=== PATIENT | female | born 1965 | race Caucasian/White ===

== ENCOUNTER 2016-09-28 05:32 | Outpatient (CLI) | payer BC ==
[~2016-09-28] VITALS: Ht 162.6 cm; Wt 96.2 kg
[~2016-09-28 05:32] MED LIST: ACYC800T PO; ALBU8.5H4 IH; ALLO100T PO; ALLP300T PO; ALPR0.5T72 PO; ALPR1TAB7 PO; AMLO10TA82 PO; ANGELIQ; AZIT-21 PO; AZTH250C PO; BACL10TA PO; BENZ100C18 PO; CA C1TAB26 PO; CALC-250 PO; CEFA500T PO; CEFD300C3 PO; CEFP500T4 PO; CLCX200C PO; CLON-378 PO; CYAN100071 PO; CYCL10TA9 PO; DEXA4TAB PO; DEXT1TAB3 PO; DIPH50CA33 PO; DOXY100C2 PO; E400C PO; EST1.25T PO; FAMO-119 PO; FAMO20TA5 PO; FEXO180T PO; FLT05NA16 NSEACH; FURO40TA4 PO; GBPN300C PO; GUAI120L29 PO; HYDR-3720; HYDR-3720 PO; HYDR-3812 PO; HYDR118S10 PO; HYDR1TAB PO; HYDR1TAB75 PO; HYDR473S17 PO; HYOS0.1283 SL; IBP800T PO; KETO-22 PO; MELA1TAB11 PO; METH4TAB PO; METH750T3; MNTL10T PO; NAPR-243 PO; NFNEB10T PO; NITR-65 PO; ONDA4TAB11 PO; ONDA8TAB13 PO; ONDAN4ODT PO; ONDN4T PO; OXYC-12 PO; OXYC-272 PO; OXYC1CAP3 PO; PANT40TA2 PO; POTA8TAB PO; PRD50T PO; PROM25SU43 RC; TBR.3OP51 OP; TERB250T10 PO; TRIA1TAB3; TRIA1TAB5 PO; UBID400C6 PO; VITA1CAP59 PO; ZOLP10TA5 PO
--- OUTSIDE RECORDS SUMMARY | 2016-09-28 05:35 | XMS REPORT | Continuity of Care Document ---
Author Author [facility] Organization [facility] Address Unknown Phone Unavailable Care Team Providers Care Hedis Analyst Name Role Phone MOR PIERRE DO PCP Insurance Providers Payer Name Policy Number Subscriber Name Relationship [facility] [id number] Davy Edmond G8 Fiance Advance Directives Directive Response Recorded Date/Time Advance Directives No 08/25/16 8:20am Health Care Power of Dental Professional No 08/25/16 8:20am Organ Donor Yes 08/25/16 8:20am Resuscitation Status Full Code 08/25/16 8:20am Problems Active Problems Medical Problem Onset Date Status Acute bronchitis Unknown Acute Acute exacerbation of chronic low back pain Unknown Acute Allergic contact dermatitis Unknown Acute Gastroenteritis Unknown Acute Migraine headache Unknown Acute Sinusitis, acute Unknown Acute Upper respiratory infection Unknown Acute Urinary tract infection Unknown Acute Medications Current Home Medications Medication Dose Units Route Directions Days/Qty Instructions Start Date Clonidine Hcl 0.2 Mg 0.1 Mg Oral Four Times Daily 03/08/09 Potassium Chloride 8 Meq 8 Meq Oral Twice A Day 02/16/10 Triamterene/Hydrochlorothiazid 1 Each 1 Each Oral Daily 11/18/10 Estrogens Conjugated 1.25 Mg 2.5 Mg Oral Daily 11/18/10 Nebivolol Hcl 10 Mg 10 Mg Oral Daily 11/16/12 Cyanocobalamin (Vitamin B-12) 1,000 Mcg 2,000 Mcg Oral Daily Vitamin E 400 Unit 400 Unit Oral Daily 03/09/13 Alprazolam 1 Mg 1.5 Mg Oral Bedtime as needed for Sleep 08/23/16 Ubidecarenone 400 Mg 400 Mg Oral Daily 08/23/16 Allopurinol 100 Mg 100 Mg Oral Daily 08/23/16 Hydrocodone/Acetaminophen 1 Each 1-2 Tab Oral 4-6HR as needed for Pain 20 08/25/16 Past Home Medications Medication Directions Ordered Status Triamterene/Hydrochlorothiazid 1 Each Tablet, 03/08/09 Discontinued Alprazolam 0.5 Mg Tab.rapdis, 1 Each Oral Twice Daily And Prn 03/08/09 Discontinued Acetaminophen/Hydrocodone Bitart (Lorcet Plus) 1 Each Tablet, 1 Each Oral Q 4 - 6 Hrs Prn 03/08/09 Discontinued [Angeliq] , 03/08/09 Discontinued Tobramycin Sulfate 5 Ml Soln, 0 Ophthalmic Give Every 4 Hrs On Schedule 08/06 Discontinued Oxycodone Hcl/Acetaminophen 1 Tab Tablet, 1 Tab Oral Q4hprn Pain 03/08/09 Discontinued Azithromycin 250 Mg Tablet, 2 Tab Oral Daily 06/06/09 Discontinued Fluticasone Propionate 16 Gm [place], 2 Sprays Each Nostril Daily 06/06/09 Discontinued Azithromycin (Zpak) 250 Mg Tab, 0 Oral Z-Dustin 08/29/09 Discontinued Cefaclor 500 Mg Tab.sr.12h, 1 Each Oral Twice A Day 10/16/09 Discontinued Methylprednisolone 4 Mg/Dose-Pack Tab.ds.pk, 0 Oral As Directed 10/16/09 Discontinued Furosemide (Lasix) 40 Mg Tablet, 1 Each Oral As Needed 02/16/10 Discontinued Terbinafine Hcl 250 Mg Tablet, 250 Mg Oral Daily 02/16/10 Discontinued Zolpidem Tartrate 10 Mg Tablet, 10 Mg Oral As Needed 02/16/10 Discontinued Pyridoxine/Melatonin 1 Tab Tablet, 2 - 3 Tab Oral Bedtime 02/16/10 Discontinued Vitamin B Complex 1 Cap Capsule, 1 Cap Oral Daily 02/16/10 Discontinued Calcium Carbonate/Vitamin D3 1 Each Tablet, 1 Each Oral Daily 02/16/10 Discontinued Dextromethorphan Hbr/Chlor-Mal 1 Each Tablet, 1 Each Oral As Needed 02/16/10 Discontinued Diphenhydramine Hcl 50 Mg Tablet, 1 Each Oral As Needed 02/16/10 Discontinued Cyclobenzaprine Hcl (Flexeril) 10 Mg Tablet, 1 Each Oral Three Times A Day Discontinued Montelukast Sodium 10 Mg Tab, 10 Mg Oral Bedtime 11/18/10 Discontinued Fexofenadine Hcl 180 Mg Tablet, 1 Tab Oral Daily 11/18/10 Discontinued Methylprednisolone 4 Mg/Dose-Pack Tab.ds.pk, 0 Oral As Directed 11/18/10 Discontinued Oxycodone Hcl/Acetaminophen 1 Each Tablet, 1 - 2 Each Oral Every 6 Hours as needed 11/18/10 Discontinued Methocarbamol (Robaxin) 750 Mg Tablet, 02/02/11 Discontinued Acetaminophen/Hydrocodone Bitart 1 Ea Tab, 02/02/11 Discontinued Oxycodone Hcl/Acetaminophen 1 Each Capsule, 1 Each Oral Q 4 H 02/02/11 Discontinued Baclofen (Lioresal) 10 Mg Tablet, 1 Each Oral Three Times A Day 02/07/11 Discontinued Ketorolac Tromethamine 10 Mg Tablet, 10 Mg Oral Every 8HRS as needed Discontinued Acetaminophen/Hydrocodone Bitart 1 Each Tablet, 1 Each Oral Every 6 Hours as needed 02/13/11 Discontinued Ondansetron 4 Mg Tab.rapdis, 4 Mg Oral Every 6 Hours as needed 03/07/11 Discontinued Acetaminophen/Hydrocodone Bitart 1 Ea Tab, 1-2 Ea Oral Q 4 - 6 Hrs Prn Discontinued Doxycycline Hyclate (Vibramycin) 100 Mg Capsule, 0 Oral Daily 05/06/11 Discontinued Acetaminophen/Hydrocodone Bitart 1 Each Tablet, 1 Each Oral Q4hr Prn Discontinued Acyclovir 800 Mg Tablet, 800 Mg Oral Every 12 Hours 05/06/11 Discontinued Ondansetron Hcl 4 Mg Tab, 4 Mg Oral Every 4HRS 05/06/11 Discontinued Ketorolac Tromethamine 10 Mg Tablet, 10 Mg Oral Every 8HRS as needed Discontinued Naproxen 500 Mg Tablet, 1 Each Oral Three Times A Day And Prn 02/08/12 Discontinued Ca Cmb No.1/Vit D3/B-6/Fa/B12 1 Each Tablet, 3000 Mg Oral Daily 11/16/12 Discontinued Allopurinol 300 Mg Tablet, 1 Tab Oral Daily 11/16/12 Discontinued Amlodipine Besylate (Norvasc 10 Mg) 10 Mg Tablet, 1 Each Oral Daily 11/16/12 Discontinued Celecoxib 200 Mg Capsule, 1 Each Oral Daily 11/16/12 Discontinued Cefprozil 500 Mg Tablet, 1 Each Oral Twice A Day 11/16/12 Discontinued Benzonatate 100 Mg Capsule, 1 - 2 Each Oral Q 4 - 6 Hr Prn 11/16/12 Discontinued Gabapentin 300 Mg Cap, 300 Mg Oral Daily 12/05/12 Discontinued Guaifenesin/Codeine Phos 120 Ml Liquid, 5-10 Ml Oral Every 8HRS as needed for Cough 12/01/13 Discontinued Hydrocodone/Chlorphen Polis 5 Ml Susp, 5 Ml Oral Every 4HRS as needed for Cough 12/01/13 Discontinued Cefdinir (Omnicef) 300 Mg Capsule, 1 Each Oral Twice A Day 04/17/14 Discontinued Hydrocodone/Chlorphen Polis 5 Ml Susp, 5 Ml Oral Every 6 Hours as needed for Cough 04/17/14 Discontinued Famotidine (Pepcid) 20 Mg Tablet, 1 Each Oral Twice A Day 02/28/15 Discontinued Dexamethasone 4 Mg Tablet, 4 Mg Oral Twice A Day 02/28/15 Discontinued Cefdinir (Omnicef) 300 Mg Capsule, 300 Mg Oral Twice A Day 06/05/15 Discontinued Albuterol Sulfate 8.5 Gm Hfa.aer.ad, 2 Puff Inhalation Every 4HRS as needed for Shortness Of Breath 06/05/15 Discontinued Ondansetron 8 Mg Tab.rapdis, 8 Mg Oral Every 6 Hours as needed for Nausea/ Vomiting 12/12/15 Discontinued Famotidine 20 Mg Tablet, 20 Mg Oral Every 12 Hours 03/23/16 Discontinued Ondansetron Hcl 4 Mg Tab, 4-8 Mg Oral Every 6 Hours as needed for Nausea/ Vomiting 03/23/16 Discontinued Pantoprazole Sodium 40 Mg Tablet.dr, 40 Mg Oral Daily 03/24/16 Discontinued Promethazine Hcl 25 Mg Supp.rect, 25 Mg Rectal Every 4HRS for Nausea/Vomiting 03/24/16 Discontinued Hyoscyamine Sulfate 0.125 Mg Tab.subl, 1-2 Tab Sublingual Every 4HRS for Abdominal Pain 03/24/16 Discontinued Nitrofurantoin Monohyd/M-Cryst 100 Mg Capsule, 100 Mg Oral Twice A Day Discontinued Social History Social History Problem Response Recorded Date/Time Alcohol Use Denies Use 03/24/2016 6:43pm Recreational Drug Use No 03/24/2016 6:43pm Recent Foreign Travel No 08/25/2016 8:20am Recent Infectious Disease Exposure No 08/25/2016 8:20am Sexually Transmitted Disease No 08/25/2016 8:20am HIV/AIDS No 08/25/2016 8:20am Smoking Status Never a Smoker 08/25/2016 8:20am Recent Hopitalizations No 08/25/2016 8:20am Sexually Transmitted Disease No 08/25/2016 8:20am Hx Sexually Transmitted Disorders No 02/22/2010 2:11pm Query Response Start Date Stop Date Smoking Status Never a Smoker Hospital Discharge Instructions Patient Instructions Physician Instructions New, Converted or Re-Newed RX: RX on Chart Plan of Care/Instructions/FU: Dressing may be replaced with a band aid in 48 hours. F/U with my nurse in 2 weeks for suture removal Activity as Tolerated: Yes Discharge Diet: No Restrictions Care Plan Patient Instructions:: Dressing may be replaced with a band aid in 48 hours. F/U with my nurse in2 weeks for suture removal Plan of Care Discharge Date 08/25/16 12:20pm Instructions/Education Provided ANESTHESIA INSTRUCTIONS POSTOP Squamous Cell Carcinoma (DC) Prescriptions See Medication Section Functional Status No functional status results. Allergies, Adverse Reactions, Alerts Allergen Type Severity Reaction Status Last Updated Penicillins ([id number]) Allergy Mild Active 06/05/15 Sulfa (Sulfonamide Antibiotics) ([id number]) Allergy Mild Active Clindamycin Allergy Intermediate POLYSYSTEMIC ARTHRITIS Active 08/23/16 Succinylcholine Allergy Unknown Active 06/05/15 PSEUDOCHOLINESTERASE Allergy Unknown Active 06/05/15 serum dex deficiency Allergy Mild Active 03/08/09 Immunizations No immunization records. Vital Signs Acute Vital Signs Vital Response Date/Time Temperature (Fahrenheit) 97.2 degrees F (97.6 - 99.5) 08/25/2016 12:20pm Temperature (Calculated Celsius) 36.94483 degrees C (36.4 - 37.5) 08/25/2016 12:10pm Temperature Source Temporal 08/25/2016 12:20pm Pulse Rate (adult) 82 bpm (60 - 90) 08/25/2016 12:20pm Respiratory Rate 18 bpm (12 - 24) 08/25/2016 12:20pm O2 Sat by Pulse Oximetry 98 % (88 - 100) 08/25/2016 12:20pm Blood Pressure 118/75 mm Hg 08/25/2016 12:20pm Blood Pressure Mean 85 mm Hg 08/25/2016 8:20am Pain Numeric Pain Scale 0-No Pain 08/25/2016 12:20pm Pain Intensity 0 08/25/2016 12:10pm Height (Feet) 5 feet 08/25/2016 8:20am Height (Inches) 4.00 inches 08/25/2016 8:20am Height (Calculated Centimeters) 162.657695 cm 08/25/2016 8:20am Weight (Pounds) 212 pounds 08/25/2016 8:20am Weight (Ounces) 3.0 oz 08/25/2016 8:20am Weight (Calculated Grams) 84773.63 gm 08/25/2016 8:20am Weight (Calculated Kilograms) 96.062117 kilograms 08/25/2016 8:20am Calculated BMI 36.4 08/25/2016 8:20am Results Pending Microbiology Results Procedure Source Collection Date/Time Procedures Procedure Status Date Provider(s) Excision of lesion Completed 08/25/16 BEKAH RUTH MD Encounters Encounter Location Arrival/Admit Date Discharge/Depart Date Attending Provider Departed [facility] 08/25/16 7:30am 12:20pm BEAKH RUTH MD Departed Clinic [facility] 08/23/16 10:35am 08/23/16 12: 27pm BEKAH RUTH MD
[2016-10-04] MEDS ORDERED: HYDR-3812 PO (10:24)
== END 2016-09-28 11:10 ==
LOC: PREOP 05:32
PROVIDERS: ATTEND Surgery
DX: Z01.818 Encounter for other preprocedural examination (principal); L98.9 Disorder of the skin and subcutaneous tissue, unspecified

== ENCOUNTER 2016-10-04 08:17 | Day surgery (SDC) | payer BC ==
[~2016-10-04] VITALS: Ht 162.6 cm; Wt 96.2 kg
--- OUTSIDE RECORDS SUMMARY | 2016-10-04 08:22 | XMS REPORT | Continuity of Care Document ---
Author Author [facility] Organization [facility] Address Unknown Phone Unavailable Care Team Providers Care Personal Care Home Administrator Name Role Phone MOR PIERRE DO PCP Insurance Providers Payer Name Policy Number Subscriber Name Relationship [facility] [id number] Davy Edmond G8 Fiance Advance Directives Directive Response Recorded Date/Time Advance Directives No 08/25/16 8:20am Health Care Power of Automated Process Operator No 08/25/16 8:20am Organ Donor Yes 08/25/16 [...] Daily 06/06/09 Discontinued Fluticasone Propionate 16 Gm [place], 2 Sprays Each Nostril Daily 06/06/09 Discontinued [...] Type Severity Reaction Status Last Updated Penicillins ([id number]) Allergy Mild Active 06/05/15 Sulfa (Sulfonamide Antibiotics) ([id number]) Allergy Mild Active Clindamycin Allergy Intermediate POLYSYSTEMIC ARTHRITIS Active 08/23/16 Succinylcholine Allergy Unknown Active 06/05/15 PSEUDOCHOLINESTERASE Allergy Unknown Active 06/05/15 serum dex deficiency Allergy Mild Active 03/08/09 Immunizations No immunization records. Vital Signs Acute Vital Signs Vital Response Date/Time Temperature (Fahrenheit) 97.2 degrees F (97.6 - 99.5) 08/25/2016 12:20pm Temperature (Calculated Celsius) 36.49666 degrees C (36.4 - 37.5) 08/25/2016 12:10pm [...] 4.00 inches 08/25/2016 8:20am Height (Calculated Centimeters) 162.331598 cm 08/25/2016 8:20am Weight (Pounds) 212 pounds 08/25/2016 8:20am Weight (Ounces) 3.0 oz 08/25/2016 8:20am Weight (Calculated Grams) 02817.63 gm 08/25/2016 8:20am Weight (Calculated Kilograms) 96.980072 kilograms 08/25/2016 8:20am Calculated BMI 36.4 08/25/2016 8:20am Results Pending Microbiology Results Procedure Source Collection Date/Time Procedures Procedure Status Date Provider(s) Excision of lesion Completed 08/25/16 BEKAH RUTH MD Encounters Encounter Location Arrival/Admit Date Discharge/Depart Date Attending Provider Departed [facility] 08/25/16 7:30am 12:20pm BEKAH RUTH MD Departed Clinic [facility] 08/23/16 10:35am 08/23/16 12: 27pm BEKAH RUTH MD
--- OUTSIDE RECORDS SUMMARY | 2016-10-04 08:22 | XMS REPORT | Continuity of Care Document ---
Author Author [facility] Organization [facility] Address Unknown Phone Unavailable Care Team Providers Care Shop Cooper Name Role Phone MOR PIERRE DO PCP Insurance Providers Payer Name Policy Number Subscriber Name Relationship [facility] [id number] Davy Edmond G8 Fiance Advance Directives Directive Response Recorded Date/Time Advance Directives No 08/25/16 8:20am Health Care Power of Writer Producer No 08/25/16 8:20am Organ Donor Yes 08/25/16 [...] Daily 06/06/09 Discontinued Fluticasone Propionate 16 Gm [place], 2 Sprays Each Nostril Daily 06/06/09 Discontinued [...] Type Severity Reaction Status Last Updated Penicillins ([id number]) Allergy Mild Active 06/05/15 Sulfa (Sulfonamide Antibiotics) ([id number]) Allergy Mild Active Clindamycin Allergy Intermediate POLYSYSTEMIC ARTHRITIS Active 08/23/16 Succinylcholine Allergy Unknown Active 06/05/15 PSEUDOCHOLINESTERASE Allergy Unknown Active 06/05/15 serum dex deficiency Allergy Mild Active 03/08/09 Immunizations No immunization records. Vital Signs Acute Vital Signs Vital Response Date/Time Temperature (Fahrenheit) 97.2 degrees F (97.6 - 99.5) 08/25/2016 12:20pm Temperature (Calculated Celsius) 36.31648 degrees C (36.4 - 37.5) 08/25/2016 12:10pm [...] 4.00 inches 08/25/2016 8:20am Height (Calculated Centimeters) 162.920970 cm 08/25/2016 8:20am Weight (Pounds) 212 pounds 08/25/2016 8:20am Weight (Ounces) 3.0 oz 08/25/2016 8:20am Weight (Calculated Grams) 10720.63 gm 08/25/2016 8:20am Weight (Calculated Kilograms) 96.571481 kilograms 08/25/2016 8:20am Calculated BMI 36.4 08/25/2016 8:20am Results Pending Microbiology Results Procedure Source Collection Date/Time Procedures Procedure Status Date Provider(s) Excision of lesion Completed 08/25/16 BEKAH RUTH MD Encounters Encounter Location Arrival/Admit Date Discharge/Depart Date Attending Provider Departed [facility] 08/25/16 7:30am 12:20pm BEKAH RUTH MD Departed Clinic [facility] 08/23/16 10:35am 08/23/16 12: 27pm BEKAH RUTH MD
[2016-10-04] MEDS ORDERED: SODIUM CHLORIDE (ADD-VANTAGE) 250 ML ONE (08:43)
[2016-10-04] MEDS ORDERED: VANCOMYCIN 1 GM ADD-VANTAGE VIAL IV ONE (08:43)
[2016-10-04] MEDS ORDERED: LACTATED RINGERS 1,000 ML IV PRN (09:00)
[2016-10-04] MEDS ORDERED: MIDAZOLAM 2 MG/2 ML (VERSED) VIAL IV ONE (09:00)
[2016-10-04] MEDS ORDERED: FAMOTIDINE 20MG/2ML IV (PEPCID) IV ONE (09:00)
[2016-10-04] MEDS ORDERED: SCOPOLAMINE 1.5 MG (TRANSDERM-SCOP) PATCH TOP ONE (09:00)
[2016-10-04] MEDS ORDERED: VANCOMYCIN 1 GM/NS 250 ML IVPB IV ONE ×2 (09:00)
[2016-10-04] MEDS ORDERED: ONDANSETRON 4 MG/2 ML (SDV) Z0FRAN IV ONE (09:00)
[2016-10-04 09:04] VITALS: BP 118/82
--- NOTE | 2016-10-04 09:17 | Progress Note-Pre Operative ---
Pre-Operative Progress Note H&P Reviewed The H&P was reviewed, patient examined and no changes noted. Date H&P Reviewed: Oct 04, 2016 Time H&P Reviewed: 09:17 Pre-Operative Diagnosis: skin lesion BEKAH RUTH MD Oct 04, 2016 9:17 am
[2016-10-04] MEDS ORDERED: BUP/EPI 0.25% 1:200,000 (MARCAINE) 30 ML VIAL ONE ×2 (09:20→09:34)
[2016-10-04] MEDS ORDERED: MIDAZOLAM 2 MG/2 ML (VERSED) VIAL ONE (09:29)
[2016-10-04] MEDS ORDERED: LACTATED RINGERS 1,000 ML IV ONE (09:29)
[2016-10-04] MEDS ORDERED: ONDANSETRON 4 MG/2 ML (SDV) Z0FRAN ONE (09:29)
[2016-10-04] MEDS ORDERED: proPOfol 200 MG/20 ML (DIPRIVAN) VIAL IV ONE (09:29)
[2016-10-04] MEDS ORDERED: fentaNYL INJECTION 100 MCG/2 ML AMP ONE (09:29)
[2016-10-04] MEDS ORDERED: LIDOCAINE PF 2% 10 ML (XYLOCAINE) AMP ONE (09:29)
[2016-10-04] MEDS ORDERED: DEXAMETHASONE PF 10 MG/ML (DECADRON) VIAL ONE (09:36)
--- NOTE | 2016-10-04 10:23 | Progress Note-Post Operative ---
Post-Operative Progess Note Pre-Operative Diagnosis skin lesions Post-Operative Diagnosis same Post-Op Procedure Note Date of Procedure: Oct 04, 2016 Name of Procedure: excision Times 2 Anesthesia Type Gen. Estimated blood loss (mL): minimal Specimen(s) collected skin lesions BEKAH RUTH MD Oct 04, 2016 10:23 am
[2016-10-04] MEDS ORDERED: HYDR-3812 PO (10:24)
--- NOTE | 2016-10-04 10:24 | Discharge Inst-Simple/Standard ---
Discharge Inst-Standard Discharge Medications New, Converted or Re-Newed RX: RX on Chart Patient Instructions/Follow Up Plan of Care/Instructions/FU: dressings off in 48 hours. Follow-up with my nurse in 10 days for suture removal Activity as Tolerated: Yes Discharge Diet: No Restrictions BEKAH RUTH MD Oct 04, 2016 10:24 am
[2016-10-04] MEDS ORDERED: SEVOFLURANE (ULTANE) 15 ML INHAL SOLN ONE (10:29)
[2016-10-04] MEDS ORDERED: morphine INJ 10 MG/ML 1ML (SYR OR VIAL) IVP PRN (10:45)
[2016-10-04] MEDS ORDERED: ONDANSETRON 4 MG/2 ML (SDV) Z0FRAN IVP PRN (10:45)
[2016-10-04 11:45] VITALS: BP 115/78
[2016-10-04 12:15] VITALS: BP 113/79
[2016-10-04 12:45] VITALS: BP 114/80
[2016-10-04 13:45] VITALS: BP 114/82
--- NOTE | 2016-10-04 14:46 | OPERATIVE REPORT ---
PROCEDURE PHYSICIAN: BEKAH RUTH DATE OF PROCEDURE: 10/04/2016 PREOPERATIVE DIAGNOSIS: 1. 1 cm skin lesion dorsum of right foot. 2. 2 cm skin lesion left forearm. POSTOPERATIVE DIAGNOSIS: 1. 1 cm skin lesion dorsum of right foot. 2. 2 cm skin lesion left forearm. OPERATION: Excision of both. SURGEON: Tian. ANESTHESIA: General anesthesia. BLOOD LOSS: Minimal. FLUIDS: 300 mL crystalloids. TYPE OF WOUND: Type I (clean wound). INDICATION FOR THE PROCEDURE: This lady presented with a skin lesion over the proximal right foot and a raised lesion over the left forearm, requiring histologic confirmation. Therefore simple excision was felt to be reasonable. Informed consent was obtained after reviewing the procedures in detail. DESCRIPTION OF PROCEDURE: She was placed supine on the operating table and general anesthesia induced using a laryngeal mask airway. A gram of Ancef was administered intravenously as prophylaxis against wound infection. 1. EXCISION OF LESION RIGHT DORSUM OF FOOT: After adequate antiseptic preparation, preemptive analgesia was established using 0.25% Marcaine with epinephrine. An elliptical incision about 2 cm long was made in a transverse fashion and the lesion excised down to the subcutaneous tissue. It was confirmed to be a benign lesion by our pathologist. The defect was then closed using interrupted 5-0 nylon sutures and a dressing applied. 2. EXCISION OF LESION LEFT FOREARM: After antiseptic preparation, preemptive analgesia was established using 0.25% Marcaine with epinephrine. An elliptical incision was made about 3 cm long was made in a longitudinal fashion and the lesion excised. It was sent for permanent histologic examination. The defect was then approximated using 5-0 nylon sutures. She tolerated the procedures well, was extubated in the operating room and taken to the recovery room in a stable condition. [place], sponges, and instruments were correct at the end of the operation. Job ID: [id number] Dictated Date: 10/04/2016 10:35:32 Assistant Men'S Soccer Coach Date: 10/04/2016 14:39:55 / milana GUTIERREZ
== END 2016-10-04 14:00 | disposition home or self-care (01) ==
LOC: SDC 08:17
PROVIDERS: ATTEND Surgery
DX: L43.9 Lichen planus, unspecified (principal); L57.0 Actinic keratosis; L90.5 Scar conditions and fibrosis of skin; Z11.2 Encounter for screening for other bacterial diseases; I10 Essential (primary) hypertension
CPT/HCPCS: 87081

== ENCOUNTER 2016-10-26 05:36 | Outpatient (CLI) | payer BC ==
[~2016-10-26] VITALS: Ht 162.6 cm; Wt 96.2 kg
--- OUTSIDE RECORDS SUMMARY | 2016-10-26 05:40 | XMS REPORT | Continuity of Care Document ---
Author Author [facility] Organization [facility] Address Unknown Phone Unavailable Care Team Providers Care Parquet Floor Layer Name Role Phone MOR PIERRE DO PCP Insurance Providers Payer Name Policy Number Subscriber Name Relationship [facility] [id number] Davy Edmond G8 Fiance Advance Directives Directive Response Recorded Date/Time Advance Directives No 10/04/16 8:58am Health Care Power of Phytopathologist No 10/04/16 8:58am Organ Donor Yes 10/04/16 8:58am Resuscitation Status Full Code 10/04/16 8:58am Problems Active Problems Medical Problem Onset Date [...] 4-6HR as needed for Pain 20 08/25/16 Hydrocodone/Acetaminophen 1 Each 1-2 Tab Oral 4-6HR as needed for Pain 20 10/04/16 Past Home Medications Medication Directions Ordered Status [...] Daily 06/06/09 Discontinued Fluticasone Propionate 16 Gm [place], 2 Sprays Each Nostril Daily 06/06/09 Discontinued [...] No 03/24/2016 6:43pm Recent Foreign Travel No 10/04/2016 9:01am Recent Infectious Disease Exposure No 10/04/2016 9:01am Sexually Transmitted Disease No 10/04/2016 8:58am HIV/AIDS No 10/04/2016 8:58am Smoking Status Never a Smoker 10/04/2016 8:58am Recent Hopitalizations No 10/04/2016 8:58am Sexually Transmitted Disease No 10/04/2016 8:58am Hx Sexually Transmitted Disorders No 02/22/2010 2:11pm Query Response Start Date Stop Date Smoking Status Never a Smoker Hospital Discharge Instructions Patient Instructions Physician Instructions New, Converted or Re-Newed RX: RX on Chart Plan of Care/Instructions/FU: dressings off in 48 hours. Follow-up with my nurse in 10 days for suture removal Activity as Tolerated: Yes Discharge Diet: No Restrictions Care Plan Patient Instructions:: dressings off in 48 hours. Follow-up with my nurse in 10 days for sutureremoval Plan of Care Discharge Date 10/04/16 2:00pm Instructions/Education Provided ANESTHESIA INSTRUCTIONS POSTOP Prescriptions See Medication Section Functional Status No functional status results. Allergies, Adverse Reactions, Alerts Allergen Type Severity Reaction Status Last Updated Penicillins ([id number]) Allergy Mild Active 06/05/15 Sulfa (Sulfonamide Antibiotics) ([id number]) Allergy Mild Active Clindamycin Allergy Intermediate POLYSYSTEMIC ARTHRITIS Active 08/23/16 Meperidine Allergy Intermediate N/V Active 09/28/16 Succinylcholine Allergy Unknown Active 06/05/15 PSEUDOCHOLINESTERASE Allergy Unknown Active 06/05/15 serum dex deficiency Allergy Mild Active 03/08/09 Immunizations No immunization records. Vital Signs Acute Vital Signs Vital Response Date/Time Temperature (Fahrenheit) 97.0 degrees F (97.6 - 99.5) 10/04/2016 1:45pm Temperature (Calculated Celsius) 36.24863 degrees C (36.4 - 37.5) 10/04/2016 1:45pm Temperature Source Temporal 10/04/2016 1:45pm Pulse Rate (adult) 89 bpm (60 - 90) 10/04/2016 1:45pm Respiratory Rate 20 bpm (12 - 24) 10/04/2016 1:45pm O2 Sat by Pulse Oximetry 95 % (88 - 100) 10/04/2016 1:45pm Blood Pressure 114/82 mm Hg 10/04/2016 1:45pm Blood Pressure Mean 94 mm Hg 10/04/2016 9:04am Pain Numeric Pain Scale 0-No Pain 10/04/2016 2:00pm Height (Feet) 5 feet 10/04/2016 9:01am Height (Inches) 4.00 inches 10/04/2016 9:01am Height (Calculated Centimeters) 162.651601 cm 10/04/2016 9:01am Weight (Pounds) 212 pounds 10/04/2016 9:01am Weight (Ounces) 3.0 oz 10/04/2016 9:01am Weight (Calculated Grams) 75776.63 gm 10/04/2016 9:01am Weight (Calculated Kilograms) 96.963528 kilograms 10/04/2016 9:01am Calculated BMI 36.4 10/04/2016 9:01am Results No known relevant diagnostic tests, laboratory data and/or discharge summary. Procedures Procedure Status Date Provider(s) Excision of lesion Completed 10/04/16 BEKAH RUTH MD Encounters Encounter Location Arrival/Admit Date Discharge/Depart Date Attending Provider Departed [facility] 10/04/16 8:17am 2:00pm BEKAH RUTH MD Departed Clinic [facility] 09/28/16 5:32am 09/28/16 11: 10am BEKAH RUTH MD
[2016-10-26] MEDS ORDERED: CLON0.1T PO (10:19)
== END 2016-10-26 10:20 ==
LOC: PREOP 05:36
PROVIDERS: ATTEND Surgery
DX: Z01.818 Encounter for other preprocedural examination (principal); Z12.11 Encounter for screening for malignant neoplasm of colon

== ENCOUNTER 2016-10-30 11:08 | Day surgery (SDC) | payer BC ==
[~2016-10-30] VITALS: Ht 162.6 cm; Wt 96.2 kg
[~2016-10-30 11:08] MED LIST changes: +CLON0.1T PO
--- OUTSIDE RECORDS SUMMARY | 2016-10-30 11:11 | XMS REPORT | Continuity of Care Document ---
Author Author [facility] Organization [facility] Address Unknown Phone Unavailable Care Team Providers Care Steam Engineer Name Role Phone MOR PIERRE DO PCP Insurance Providers Payer Name Policy Number Subscriber Name Relationship [facility] [id number] Davy Edmond G8 Fiance Advance Directives Directive Response Recorded Date/Time Advance Directives No 10/04/16 8:58am Health Care Power of Structural Drafter No 10/04/16 8:58am Organ Donor Yes 10/04/16 [...] Daily 06/06/09 Discontinued Fluticasone Propionate 16 Gm [place], 2 Sprays Each Nostril Daily 06/06/09 Discontinued [...] Type Severity Reaction Status Last Updated Penicillins ([id number]) Allergy Mild Active 06/05/15 Sulfa (Sulfonamide Antibiotics) ([id number]) Allergy Mild Active Clindamycin Allergy Intermediate POLYSYSTEMIC ARTHRITIS Active 08/23/16 Meperidine Allergy Intermediate N/V Active 09/28/16 Succinylcholine Allergy Unknown Active 06/05/15 PSEUDOCHOLINESTERASE Allergy Unknown Active 06/05/15 serum dex deficiency Allergy Mild Active 03/08/09 Immunizations No immunization records. Vital Signs Acute Vital Signs Vital Response Date/Time Temperature (Fahrenheit) 97.0 degrees F (97.6 - 99.5) 10/04/2016 1:45pm Temperature (Calculated Celsius) 36.04137 degrees C (36.4 - 37.5) 10/04/2016 1:45pm [...] 4.00 inches 10/04/2016 9:01am Height (Calculated Centimeters) 162.979232 cm 10/04/2016 9:01am Weight (Pounds) 212 pounds 10/04/2016 9:01am Weight (Ounces) 3.0 oz 10/04/2016 9:01am Weight (Calculated Grams) 19902.63 gm 10/04/2016 9:01am Weight (Calculated Kilograms) 96.077399 kilograms 10/04/2016 9:01am Calculated BMI 36.4 10/04/2016 9:01am Results No known relevant diagnostic tests, laboratory data and/or discharge summary. Procedures Procedure Status Date Provider(s) Excision of lesion Completed 10/04/16 BEKAH RUTH MD Encounters Encounter Location Arrival/Admit Date Discharge/Depart Date Attending Provider Departed [facility] Day [facility] 10/04/16 8:17am 2:00pm BEKAH RUTH MD Departed Clinic [facility] 09/28/16 5:32am 09/28/16 11: 10am BEKAH RUTH MD
--- OUTSIDE RECORDS SUMMARY | 2016-10-30 11:12 | XMS REPORT | Continuity of Care Document ---
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 Name Role Phone MOR PIERRE DO PCP Insurance Providers Payer Name Policy Number Subscriber Name Relationship [facility] [id number] Davy Edmond G8 Fiance Advance Directives Directive Response Recorded Date/Time Advance Directives No 10/04/16 8:58am Health Care Power of Automotive Dismantler No 10/04/16 8:58am Organ Donor Yes 10/04/16 [...] Daily 06/06/09 Discontinued Fluticasone Propionate 16 Gm [place], 2 Sprays Each Nostril Daily 06/06/09 Discontinued [...] Type Severity Reaction Status Last Updated Penicillins ([id number]) Allergy Mild Active 06/05/15 Sulfa (Sulfonamide Antibiotics) ([id number]) Allergy Mild Active Clindamycin Allergy Intermediate POLYSYSTEMIC ARTHRITIS Active 08/23/16 Meperidine Allergy Intermediate N/V Active 09/28/16 Succinylcholine Allergy Unknown Active 06/05/15 PSEUDOCHOLINESTERASE Allergy Unknown Active 06/05/15 serum dex deficiency Allergy Mild Active 03/08/09 Immunizations No immunization records. Vital Signs Acute Vital Signs Vital Response Date/Time Temperature (Fahrenheit) 97.0 degrees F (97.6 - 99.5) 10/04/2016 1:45pm Temperature (Calculated Celsius) 36.45578 degrees C (36.4 - 37.5) 10/04/2016 1:45pm [...] 4.00 inches 10/04/2016 9:01am Height (Calculated Centimeters) 162.604901 cm 10/04/2016 9:01am Weight (Pounds) 212 pounds 10/04/2016 9:01am Weight (Ounces) 3.0 oz 10/04/2016 9:01am Weight (Calculated Grams) 96319.63 gm 10/04/2016 9:01am Weight (Calculated Kilograms) 96.437987 kilograms 10/04/2016 9:01am Calculated BMI 36.4 10/04/2016 9:01am Results No known relevant diagnostic tests, laboratory data and/or discharge summary. Procedures Procedure Status Date Provider(s) Excision of lesion Completed 10/04/16 BEKAH RUTH MD Encounters Encounter Location Arrival/Admit Date Discharge/Depart Date Attending Provider Departed Surgical Day Care [facility] 10/04/16 8:17am 2:00pm BEKAH RUTH MD Departed Clinic [facility] 09/28/16 5:32am 09/28/16 11: 10am BEKAH RUTH MD
--- NOTE | 2016-10-30 11:17 | Pre-Op Note & Conscious Sedat ---
Pre-Operative Progress Note H&P Reviewed The H&P was reviewed, patient examined and no changes noted. Date H&P Reviewed: Oct 30, 2016 Time H&P Reviewed: 11:16 Pre-Op Diagnosis: screening Conscious Sedation Pre-Proced ASA Class: 2 Airway Mallampati Classification: ([place] appropriate class) I. II. III, IV Lungs Heart ASA score ASA 1: a normal healthy patient ASA 2: a patient with a mild systemic disease (mid diabetes, controlled hypertension, obesity ASA 3: a patient with a severe systemic disease that limits activity (angina , COPD, prior Myocardial infarction) ASA 4: a patient with an incapacitating disease that is a constant threat to life (CHF, renal failure) ASA 5: a moribund patient not expected to survive 24 hrs. (ruptured aneurysm) ASA 6: a declared brain patient whose organs are being harvested. For emergent operations, add the letter E after the classification Grade 2 Sedation Plan: Discussed options with patient/fam Note The patient is an appropriate candidate to undergo the planned procedure, sedation, and anesthesia. The patient immediately re-assessed prior to indication. BEKAH RUTH MD Oct 30, 2016 11:16 am
[2016-10-30] MEDS ORDERED: NALOXONE 0.4 MG/ML 1 ML (NARCAN) VIAL IVP PRN (11:30)
[2016-10-30] MEDS ORDERED: NS IV 500 ML 500 ML IV ONE (11:30)
[2016-10-30] MEDS ORDERED: FLUMAZENIL (ROMAZICON) 0.1 MG/ML 5 ML VIAL INJ PRN (11:30)
[2016-10-30] MEDS ORDERED: NS IV 500 ML 500 ML ONE (11:39)
[2016-10-30] MEDS ORDERED: MIDAZOLAM 2 MG/2 ML (VERSED) VIAL ONE ×3 (11:44→11:45)
[2016-10-30] MEDS ORDERED: fentaNYL INJECTION 100 MCG/2 ML AMP ONE ×2 (11:45)
[2016-10-30 11:50] VITALS: BP 122/85
[2016-10-30] MEDS: fentaNYL INJECTION 100 MCG/2 ML AMP IVP PRN ×4 (12:05→12:20)
[2016-10-30] MEDS: MIDAZOLAM 2 MG/2 ML (VERSED) VIAL IVP PRN ×3 (12:06→12:16)
--- NOTE | 2016-10-30 12:28 | Progress Note-Post Operative ---
Post-Operative Progess Note Pre-Operative Diagnosis screening Post-Operative Diagnosis sigmoid diverticulosis Post-Op Procedure Note Date of Procedure: Oct 30, 2016 Name of Procedure: BEKAH Muniz MD Oct 30, 2016 12:28 pm
--- NOTE | 2016-10-30 12:29 | Discharge Inst-Simple/Standard ---
Discharge Inst-Standard Discharge Medications New, Converted or Re-Newed RX: Other Patient Instructions/Follow Up Plan of Care/Instructions/FU: repeat colonoscopy in 10 years Activity as Tolerated: Yes Discharge Diet: No Restrictions BEKAH RUTH MD Oct 30, 2016 12:29 pm
[2016-10-30 12:35] VITALS: BP 123/81
--- NOTE | 2016-10-30 13:01 | PROCEDURE REPORT ---
PROCEDURE PHYSICIAN: BEKAH RUTH DATE OF PROCEDURE: 10/30/2016 PROCEDURE: Screening colonoscopy. SURGEON: Dr. Ruth. INDICATION FOR THE PROCEDURE: This lady came in for screening colonoscopy. She denied any family history of colon cancer. Informed consent was obtained after reviewing the procedure in detail. DESCRIPTION OF PROCEDURE: She was placed in left lateral decubitus position and her vital signs were monitored. Conscious sedation was achieved using Versed and fentanyl. Digital rectal examination was unremarkable. The colonoscope was then introduced into the rectum and advanced all the way up to the cecum. The quality of bowel preparation was rather suboptimal. Scope was then withdrawn slowly and the mucosa examined in a systematic fashion. FINDINGS: Quite extensive diverticulosis without any inflammation. She tolerated the procedure well and was taken back to the nursing area in a stable condition. IMPRESSION: 1. Screening colonoscopy. 2. No polyps. 3. No family history. 4. Recommend repeating in 10 years. Job ID: [id number] Dictated Date: 10/30/2016 12:27:55 Supervisor Particleboard Date: 10/30/2016 12:58:48 / makayla GUTIERREZ
[2016-10-30 13:10] VITALS: BP 111/76
[2016-10-30 13:27] VITALS: BP 111/76
== END 2016-10-30 13:15 | disposition home or self-care (01) ==
LOC: ENDO 11:08
PROVIDERS: ATTEND Surgery
DX: Z12.11 Encounter for screening for malignant neoplasm of colon (principal); K57.30 Diverticulosis of large intestine without perforation or abscess without bleeding

== ENCOUNTER → 2016-11-15 | Outpatient (CLI) | payer BC ==
--- OUTSIDE RECORDS SUMMARY | 2016-11-15 08:18 | XMS REPORT | Continuity of Care Document ---
Author Author [facility] Organization [facility] Address Unknown Phone Unavailable Care Team Providers Care Aids Social Worker Name Role Phone MOR PIERRE DO PCP Insurance Providers Payer Name Policy Number Subscriber Name Relationship [facility] [id number] Davy Edmond G8 Fiance Advance Directives Directive Response Recorded Date/Time Advance Directives No 10/04/16 8:58am Health Care Power of Produce Clerk No 10/04/16 8:58am Organ Donor Yes 10/04/16 [...] Daily 06/06/09 Discontinued Fluticasone Propionate 16 Gm [place], 2 Sprays Each Nostril Daily 06/06/09 Discontinued [...] Type Severity Reaction Status Last Updated Penicillins ([id number]) Allergy Mild Active 06/05/15 Sulfa (Sulfonamide Antibiotics) ([id number]) Allergy Mild Active Clindamycin Allergy Intermediate POLYSYSTEMIC ARTHRITIS Active 08/23/16 Meperidine Allergy Intermediate N/V Active 09/28/16 Succinylcholine Allergy Unknown Active 06/05/15 PSEUDOCHOLINESTERASE Allergy Unknown Active 06/05/15 serum dex deficiency Allergy Mild Active 03/08/09 Immunizations No immunization records. Vital Signs Acute Vital Signs Vital Response Date/Time Temperature (Fahrenheit) 97.0 degrees F (97.6 - 99.5) 10/04/2016 1:45pm Temperature (Calculated Celsius) 36.05742 degrees C (36.4 - 37.5) 10/04/2016 1:45pm [...] 4.00 inches 10/04/2016 9:01am Height (Calculated Centimeters) 162.595485 cm 10/04/2016 9:01am Weight (Pounds) 212 pounds 10/04/2016 9:01am Weight (Ounces) 3.0 oz 10/04/2016 9:01am Weight (Calculated Grams) 59519.63 gm 10/04/2016 9:01am Weight (Calculated Kilograms) 96.768765 kilograms 10/04/2016 9:01am Calculated BMI 36.4 10/04/2016 9:01am Results No known relevant diagnostic tests, laboratory data and/or discharge summary. Procedures Procedure Status Date Provider(s) Excision of lesion Completed 10/04/16 BEKAH RUTH MD Encounters Encounter Location Arrival/Admit Date Discharge/Depart Date Attending Provider Departed [facility] Day [facility] 10/04/16 8:17am 2:00pm BEKAH RUTH MD Departed Clinic [facility] 09/28/16 5:32am 09/28/16 11: 10am BEKAH RUTH MD
--- NOTE | 2016-11-15 16:02 | Diagnostic Imaging Report ---
Ultrasound noninvasive. INDICATION: Leg pain. FINDINGS: Ankle-brachial indices were obtained in the usual manner. The ankle-brachial index on the right is 0.94 and on the left 1.00 ( normal 1.00 or greater). IMPRESSION: The ankle-branchial index on the right is slightly diminished. I would recommend that a dedicated right lower extremity arterial Doppler exam be performed for further evaluation. Dictated by: Dictated on workstation # [id number]
== END ==
LOC: RAD 08:13
PROVIDERS: ATTEND Family Medicine
DX: I87.2 Venous insufficiency (chronic) (peripheral) (principal)
CPT/HCPCS: 93922

== ENCOUNTER → 2016-12-13 | Outpatient (CLI) | payer BC ==
--- NOTE | 2016-12-13 14:24 | Diagnostic Imaging Report ---
Right lower extremity arterial Doppler. TECHNIQUE: Spectral and color flow imaging of the arterial system of the right lower extremity was performed. FINDINGS: The recent noninvasive ultrasound examination of the extremities performed on 11/15/2016 noted that the ankle-brachial index on the right was slightly diminished at 0.94 (normal 1.00 or greater). On this study, there is fairly good arterial blood flow throughout the right lower extremity. Triphasic waveforms were seen at all levels and there is no abrupt alteration of velocities to suggest a hemodynamically significant stenosis. IMPRESSION: There is fairly good arterial blood flow to the right lower extremity. There is no evidence for hemodynamically significant stenosis. Dictated by: Dictated on workstation # [id number]
== END ==
LOC: RAD 09:11
PROVIDERS: ATTEND Nurse Practitioner Family
DX: M79.604 Pain in right leg (principal)
CPT/HCPCS: 93926

== ENCOUNTER → 2016-12-26 | Outpatient (CLI) | payer BC ==
--- NOTE | 2016-12-27 18:36 | Diagnostic Imaging Report ---
Bilateral screening mammogram The current study was also evaluated with a Computer Aided Detection (CAD) system. Indication: Screening. No current complaints stated on the questionnaire. COMPARISON: 3-2-16. FINDINGS: The breasts are composed of scattered fibroglandular densities. There are remaining calcifications in the upper outer aspect of the left breast which were evaluated with biopsy before and biopsy clip adjacent to them seen. The results of pathology was benign with no evidence of malignancy. The right breast demonstrates no significant change. IMPRESSION: Remaining calcifications with no definitive change in the upper outer aspect of the left breast. Biopsy results were benign. Six months followup left breast mammogram is recommended for closer observation of these calcifications and ensuring stability is recommended. ACR BI-RADS Category 3: Probably benign findings. Result letter will be mailed to the patient. Note: At least 10% of breast cancer is not imaged by mammography. Dictated by: Dictated on workstation # [id number]
== END ==
LOC: RAD 09:21
PROVIDERS: ATTEND Family Medicine
DX: Z12.31 Encounter for screening mammogram for malignant neoplasm of breast (principal)
CPT/HCPCS: 77067

== ENCOUNTER 2017-10-15 13:27 | Outpatient (CLI) | payer BC ==
[~2017-10-15 13:27] MED LIST changes: +ACHD5005 PO; -HYDR-3812 PO
== END 2017-10-15 14:00 | disposition home or self-care (01) ==
LOC: SLEEP 13:27
PROVIDERS: ATTEND Nurse Practitioner Family
DX: G47.52 REM sleep behavior disorder (principal); G47.10 Hypersomnia, unspecified; G47.61 Periodic limb movement disorder; G47.00 Insomnia, unspecified; R06.83 Snoring; F39 Unspecified mood [affective] disorder; R51 Headache

== ENCOUNTER 2018-03-10 18:40 | Emergency (ER) | payer BC ==
[~2018-03-10] VITALS: Ht 162.6 cm; Wt 90.7 kg
[2018-03-10] MEDS ORDERED: LIDOCAINE 1% INJ 20 ML 20 ML VIAL INJ ONE (19:30)
[2018-03-10] MEDS ORDERED: cefTRIAXone 1 GM (ROCEPHIN) VIAL IM ONE (19:30)
[2018-03-10] MEDS ORDERED: LIDOCAINE TOPICAL 4% 50 ML BTL TP ONE (19:30)
[2018-03-10] MEDS ORDERED: LIDOCAINE/PRILOCAINE (EMLA) 5 GM TUBE TP ONE ×2 (19:39→19:45)
[2018-03-10] MEDS ORDERED: LIDOCAINE 2% VISCOUS 15 ML UDC PO ONE ×2 (19:45→20:00)
--- NOTE | 2018-03-10 19:48 | ED Lower Extremity ---
General Chief Complaint: Lower Extremity Stated Complaint: POSS BUG BITE Nursing Triage Note: PT PRESENTS TO ER WITH COMPLAINT OF RIGHT FOOT BLISTER. DENIES INJURY. STATES SHE ONLY WEARS FLIP FLOPS. STATES IT POPPED UP LAST NIGHT. Nursing Sepsis Screen: No Definite Risk Source: patient Exam Limitations: no limitations History of Present Illness Date Seen by Provider: Mar 10, 2018 Time Seen by Provider: 19:43 Initial Comments to ER per private vehicle with reports of a bug bite to the posterior aspect of the right foot. She first noticed this last night and geovany lines around it with a marker. This began fairly small and has enlarged since and formed what she seems to describe as a large bullawhich has subsequently ruptured and she reports again what sounds like serosanguineous fluid.She is not diabetic. She has no comorbidities. She denies any systemic symptoms such as fevers chills nausea vomiting or joint pains. No rash.She denies having seen anything bite her.she complains of intense pain and burning sensation at the site. Onset: yesterday Severity: moderate, severe Pain/Injury Location: right foot Allergies and Home Medications Allergies Coded Allergies: clindamycin (Verified Allergy, Intermediate, POLYSYSTEMIC ARTHRITIS, 08/23) meperidine (Verified Allergy, Intermediate, N/V, 09/28/16) Penicillins (Unverified Allergy, Mild, 06/05/15) Sulfa (Sulfonamide Antibiotics) (Unverified Allergy, Mild, 06/05/15) succinylcholine (Unverified Allergy, Unknown, 06/05/15) Uncoded Allergies: serum dex deficiency (Allergy, Mild, 03/08/09) PSEUDOCHOLINESTERASE (Allergy, Unknown, 06/05/15) Home Medications Allopurinol 100 Mg Tablet, 100 MG PO DAILY, (Reported) Alprazolam 1 Mg Tablet, 1.5 MG PO HS PRN for SLEEP, (Reported) Cephalexin 500 Mg Capsule, 500 MG PO TID Prescribed by: KEIRA WATKINS on 03/10/181949 Clonidine HCl 0.1 Mg Tablet, 0.1 MG PO QID, (Reported) Cyanocobalamin (Vitamin B-12) 1,000 Mcg Tablet.er, 1,000 MCG PO DAILY, (Reported ) Estrogens,Conjugated 1.25 Mg Tablet, 1.25-2.5 MG PO DAILY, (Reported) take 1-2 (1.25mg tabs) Hydrocodone Bit/Acetaminophen 1 Each Tablet, 1-2 TAB PO 4-6HR PRN for PAIN Prescribed by: BEKAH RUTH on 08/25/16 1001 Nebivolol Hcl 10 Mg Tablet, 10 MG PO HS, (Reported) Potassium Chloride 8 Meq Tablet.sa, 8 MEQ PO BID, (Reported) Triamterene/Hydrochlorothiazid 1 Each Tablet, 1 EACH PO DAILY, (Reported) Ubidecarenone 400 Mg Capsule, 400 MG PO DAILY, (Reported) Vitamin E Acetate 400 Unit Capsule, 400 UNIT PO DAILY, (Reported) Patient Home Medication List Home Medication List Reviewed: Yes Constitutional: see HPI; No chills, No fever EENTM: see HPI Respiratory: no symptoms reported Cardiovascular: no symptoms reported Genitourinary: no symptoms reported Musculoskeletal: see HPI Skin: see HPI Psychiatric/Neurological: No Symptoms Reported (S do note) Past Kxaggxa-Uajhon-Arqpkd Hx Patient Social History Alcohol Use: Denies Use Recreational Drug Use: No Smoking Status: Never a Smoker Recent Foreign Travel: No Contact w/Someone Who Travel: No Recent Infectious Disease Expo: No Recent Hopitalizations: No Immunizations Up To Date Tetanus Booster (TDap): More than 5yrs Seasonal Allergies Seasonal Allergies: Yes Past Medical History Surgeries: Yes (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, LESION TO FOREARM, lesions) Adenoidectomy, Hysterectomy, Oophorectomy, Tonsillectomy Respiratory: No Pneumonia Cardiac: Yes Hypertension Neurological: Yes Headaches /Migraines 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 Disorders: No 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 Sexually Transmitted Disease: No HIV/AIDS: No Gastrointestinal: No Musculoskeletal: Yes Chronic Back Pain, Gout Endocrine: No Loss of Vision: Bilateral Hearing Impairment: Denies Cancer: Yes Skin Psychosocial: Yes Sleep Difficulties, Anxiety Integumentary: No Blood Disorders: No Adverse Reaction/Blood Tranf: No Family Medical History FH: CAD (coronary artery disease) FH: Remedios Gehrig's disease Hypertension G8 BROTHER No Pertinent Family Hx Physical Exam Vital Signs Vital Signs - First Documented 03/10/18 19:17 Temp 97.5 Pulse 85 Resp 20 B/P (MAP) 132/85 (101) Pulse Ox 96 O2 Delivery Room Air Capillary Refill : Less Than 3 Seconds General Appearance: WD/WN, no apparent distress HEENT: PERRL/EOMI, normal ENT inspection Neck: non-tender, full range of motion Respiratory: no respiratory distress, no accessory muscle use Hips: bilateral hip non-tender, bilateral hip normal inspection, bilateral hip normal range of motion Legs: bilateral leg non-tender, bilateral leg normal inspection (we left him he is), bilateral leg normal range of motion Knees: bilateral knee non-tender, bilateral knee normal inspection, bilateral knee normal range of motion Ankles: bilateral ankle non-tender, bilateral ankle normal inspection, bilateral ankle normal range of motion Feet: right foot other (There is what appears to be a large ruptured bulla well demarcated without surrounding cellulitis or lymphangitis. The overlying skin which was the root of the bulla which has now ruptured was removed with scissors, MA cream was then applied due to the severe pain and burning she was having. Culture was collected.) Neurologic/Psychiatric: alert, normal mood/affect, oriented x 3 Skin: normal color, warm/dry Progress/Results/Core Measures Results/Orders My Orders Orders - KEIRA WATKINS APRN Lidocaine 4% Topical (Xylocaine Topical (03/10/18 19:30) Ceftriaxone Injection (Rocephin Injectio (03/10/18 19:30) Lidocaine 1% Inj 20 Ml (Xylocaine 1% Inj (03/10/18 19:30) Lidocaine 2% Viscous 15 Ml (Xylocaine Vi (03/10/18 19:45) Lidocaine/Prilocaine Cream (Emla Cream) (03/10/18 19:45) Lidocaine/Prilocaine Cream (Emla Cream) (03/10/18 19:39) Lidocaine 2% Viscous 15 Ml (Xylocaine Vi (03/10/18 20:00) Medications Given in ED Current Medications Medications Dose Ordered Sig/Marichuy Route Start Time Stop Time Status Last Admin Dose Admin Ceftriaxone Sodium 1,000 mg ONCE ONCE IM 03/10/18 19:30 03/10/18 19:31 DC 03/10/18 19:43 1,000 MG Lidocaine HCl 2.1 ml ONCE ONCE INJ 03/10/18 19:30 03/10/18 19:31 DC 03/10/18 19:50 2.1 ML Lidocaine HCl 15 ml ONCE ONCE PO 03/10/18 20:00 03/10/18 20:01 DC 03/10/18 20:02 15 ML Lidocaine/ Prilocaine 1 gm ONCE ONCE TP 03/10/18 19:45 03/10/18 19:48 DC 03/10/18 19:43 1 GM Vital Signs/I&O 03/10/18 19:17 Temp 97.5 Pulse 85 Resp 20 B/P (MAP) 132/85 (101) Pulse Ox 96 O2 Delivery Room Air Blood Pressure Mean: 101 Departure Communication (Admissions) 2002- Imler cream was applied initially which causes an increase in the burning sensation so this was wiped off. She requested local anesthesia with injection which was reasonable so I went ahead and did that with the left over lidocaine from her Rocephin injection totaling 3 mL of injection into the area on her foot. This resulted in immediate improvement in pain. It was then covered with Vaseline gauze and 2 x 2 then Coban. Impression Primary Impression: ruptured bulla of foot Disposition: HOME, SELF-CARE Condition: Stable Departure-Patient Inst. Decision time for Depature: 19:49 Referrals: MOR PIERRE DO (PCP/Family) Primary Care Physician Patient Instructions: Wound Care Add. Discharge Instructions: 1. Leave this cream in place for 2-3 hours then wiped off. By that point you should be numb.Continue to use her hydrocodone as needed for pain. Antibiotics as directed. Call Dr. Pierre tomorrow to make an appointment to be seen within the next 2-3 days. No swimming for the next 2-3 days. Copy Copies To 1: MOR PIERRE PETER J APRN Mar 10, 2018 19:48
[2018-03-10] MEDS ORDERED: CEPH-507 PO (19:50)
[2018-03-10 20:26] VITALS: BP 132/85
[2018-03-10] MEDS ORDERED: diphenhydrAMINE 50 MG/ML INJ (BENADRYL) IM ONE (20:30)
[2018-03-11] MEDS ORDERED: OXYC-465 PO (19:07)
[2018-03-11] MEDS ORDERED: POLY17PO6 PO (19:07)
== END 2018-03-10 20:24 | disposition home or self-care (01) ==
LOC: EDUNIT# 18:40 → ER 18:41
DX: L13.9 Bullous disorder, unspecified (principal); I10 Essential (primary) hypertension; G43.909 Migraine, unspecified, not intractable, without status migrainosus; M10.9 Gout, unspecified; F41.9 Anxiety disorder, unspecified; Z90.49 Acquired absence of other specified parts of digestive tract; Z90.710 Acquired absence of both cervix and uterus; Z90.89 Acquired absence of other organs; Z87.01 Personal history of pneumonia (recurrent); Z88.1 Allergy status to other antibiotic agents; Z88.0 Allergy status to penicillin; Z88.2 Allergy status to sulfonamides; Z88.8 Allergy status to other drugs, medicaments and biological substances
CPT/HCPCS: 87070; 87205; 96372

== ENCOUNTER 2018-03-11 18:30 | Emergency (ER) | payer BC ==
[~2018-03-11] VITALS: Ht 162.6 cm; Wt 90.7 kg
[~2018-03-11 18:30] MED LIST changes: +CEPH-507 PO
[2018-03-11] MEDS ORDERED: LIDOCAINE 1% INJ 20 ML 20 ML VIAL INJ ONE (19:00)
[2018-03-11] MEDS ORDERED: fentaNYL INJECTION 100 MCG/2 ML AMP IM ONE (19:00)
[2018-03-11] MEDS ORDERED: cefTRIAXone 1 GM (ROCEPHIN) VIAL IM ONE (19:00)
[2018-03-11] MEDS ORDERED: KETOROLAC 30 MG/ML VIAL IM ONE (19:00)
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
[2018-03-11] MEDS ORDERED: OXYC-465 PO (19:07)
[2018-03-11] MEDS ORDERED: POLY17PO6 PO (19:07)
[2018-03-11 19:22] VITALS: BP 142/79
== END 2018-03-11 19:22 | disposition home or self-care (01) ==
LOC: EDUNIT# 18:30 → ER 18:31
DX: L03.115 Cellulitis of right lower limb (principal); I10 Essential (primary) hypertension; F41.9 Anxiety disorder, unspecified; G47.9 Sleep disorder, unspecified; G43.909 Migraine, unspecified, not intractable, without status migrainosus; M10.9 Gout, unspecified; Z85.828 Personal history of other malignant neoplasm of skin; Z90.89 Acquired absence of other organs; Z90.710 Acquired absence of both cervix and uterus; Z88.1 Allergy status to other antibiotic agents; Z88.0 Allergy status to penicillin; Z88.2 Allergy status to sulfonamides; Z88.8 Allergy status to other drugs, medicaments and biological substances; Z98.890 Other specified postprocedural states
CPT/HCPCS: 96372; 99284

== ENCOUNTER 2018-03-17 08:47 | Outpatient (RCR) | payer BC ==
[2018-03-15 12:20] VITALS: BP 147/105
[2018-03-16 09:04] VITALS: BP 122/77
[2018-03-16] MEDS: VANCOMYCIN 1500 MG/NS 500 ML IVPB IV SCH ×2 (09:20)
[~2018-03-17] VITALS: Ht 162.6 cm; Wt 90.7 kg
[~2018-03-17 08:47] MED LIST changes: +NS (IVPB) 250 ML ONE; +OXYC-465 PO; +POLY17PO6 PO; +VANCOMYCIN 1000 MG/VIAL ONE; +VANCOMYCIN 2000 MG/NS 500 ML IVPB IV ONE
[2018-03-17] MEDS: VANCOMYCIN 1500 MG/NS 500 ML IVPB IV SCH ×2 (09:15)
[2018-03-17 09:31] VITALS: BP 137/91
== END 2018-04-09 | disposition home or self-care (01) ==
LOC: SDC 08:47
PROVIDERS: ATTEND Nurse Practitioner Family
DX: L03.115 Cellulitis of right lower limb (principal)
CPT/HCPCS: 96365; 96366

== ENCOUNTER 2018-03-19 15:07 | Outpatient (RCR) | payer BC ==
[2018-03-17 15:02] VITALS: BP 134/91
[2018-03-18 14:55] VITALS: BP 134/91
[2018-03-18] MEDS: VANCOMYCIN 1500 MG/NS 500 ML IVPB IV SCH ×2 (15:25)
[2018-03-18 17:54] VITALS: BP 134/91
[~2018-03-19] VITALS: Ht 162.6 cm; Wt 90.7 kg
[~2018-03-19 15:07] MED LIST changes: -NS (IVPB) 250 ML ONE; -VANCOMYCIN 1000 MG/VIAL ONE; +VANCOMYCIN 1500 MG/NS 500 ML IVPB IV SCH; -VANCOMYCIN 2000 MG/NS 500 ML IVPB IV ONE
[2018-03-19 15:20] VITALS: BP 139/84
[2018-03-19] MEDS: VANCOMYCIN 1500 MG/NS 500 ML IVPB IV SCH ×2 (15:25)
[2018-03-19 17:12] VITALS: BP 139/84
== END 2018-04-09 | disposition home or self-care (01) ==
LOC: SDC 15:07
PROVIDERS: ATTEND Nurse Practitioner Family
DX: L03.115 Cellulitis of right lower limb (principal)
CPT/HCPCS: 96365; 96366

== ENCOUNTER 2018-03-21 15:35 | Outpatient (RCR) | payer BC ==
[2018-03-20 16:18] VITALS: BP 134/94
[2018-03-20] MEDS: VANCOMYCIN 1500 MG/NS 500 ML IVPB IV SCH ×2 (16:40)
[2018-03-20 18:45] VITALS: BP 134/94
[~2018-03-21] VITALS: Ht 162.6 cm; Wt 90.7 kg
[~2018-03-21 15:35] MED LIST changes: -VANCOMYCIN 1500 MG/NS 500 ML IVPB IV SCH
[2018-03-21] MEDS: VANCOMYCIN 1500 MG/NS 500 ML IVPB IV SCH ×2 (15:51)
[2018-03-21 18:05] VITALS: BP 134/87
== END 2018-03-22 06:23 | disposition home or self-care (01) ==
LOC: SDC 15:35
PROVIDERS: ATTEND Nurse Practitioner Family
DX: L03.115 Cellulitis of right lower limb (principal)
CPT/HCPCS: 96365; 96366

== ENCOUNTER → 2018-03-22 | Outpatient (CLI) | payer BC | LOC: WOUNDCARE 08:57 | PROVIDERS: ATTEND Surgery | DX: E11.621 Type 2 diabetes mellitus with foot ulcer (principal); L97.322 Non-pressure chronic ulcer of left ankle with fat layer exposed; L97.412 Non-pressure chronic ulcer of right heel and midfoot with fat layer exposed | CPT/HCPCS: 99213 ==

== ENCOUNTER → 2018-03-25 | Outpatient (CLI) | payer BC | LOC: LAB 10:22 | PROVIDERS: ATTEND Surgery | DX: E11.621 Type 2 diabetes mellitus with foot ulcer (principal); L97.322 Non-pressure chronic ulcer of left ankle with fat layer exposed | CPT/HCPCS: 36415; 82947 ==

== ENCOUNTER → 2018-03-29 | Outpatient (CLI) | payer BC | LOC: LAB 09:23 | PROVIDERS: ATTEND Surgery | DX: E11.621 Type 2 diabetes mellitus with foot ulcer (principal); L97.412 Non-pressure chronic ulcer of right heel and midfoot with fat layer exposed | CPT/HCPCS: 36415; 83036 ==

== ENCOUNTER → 2018-03-29 | Outpatient (CLI) | payer BC | LOC: WOUNDCARE 08:36 | PROVIDERS: ATTEND Surgery | DX: E11.621 Type 2 diabetes mellitus with foot ulcer (principal); L97.322 Non-pressure chronic ulcer of left ankle with fat layer exposed; L97.412 Non-pressure chronic ulcer of right heel and midfoot with fat layer exposed | CPT/HCPCS: 82962; 99212 ==

== ENCOUNTER 2019-02-08 09:21 | Emergency (ER) | payer SELFPAY ==
[~2019-02-08] VITALS: Ht 162.6 cm; Wt 90.7 kg
[2019-02-08] MEDS ORDERED: DEXAMETHASONE 10 MG/ML (DECADRON) 1 ML VIAL IM ONE (09:45)
[2019-02-08] MEDS ORDERED: cefTRIAXone 1,000 MG/2.86 ml vial (IM ONLY) IM ONE (09:45)
[2019-02-08] MEDS ORDERED: LIDOCAINE 1% INJ 20 ML 20 ML VIAL INJ ONE (09:45)
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
[2019-02-08] MEDS ORDERED: CEPH500T PO (09:55)
[2019-02-08] MEDS ORDERED: PRD20T PO (09:55)
[2019-02-08 10:07] VITALS: BP 127/76
== END 2019-02-08 10:08 | disposition home or self-care (01) ==
LOC: EDUNIT# 09:21 → ER 09:22
DX: J20.9 Acute bronchitis, unspecified (principal); J01.90 Acute sinusitis, unspecified; I10 Essential (primary) hypertension; G43.909 Migraine, unspecified, not intractable, without status migrainosus; M10.9 Gout, unspecified; F41.9 Anxiety disorder, unspecified; Z85.828 Personal history of other malignant neoplasm of skin; Z88.0 Allergy status to penicillin; Z88.2 Allergy status to sulfonamides; Z82.49 Family history of ischemic heart disease and other diseases of the circulatory system; Z88.1 Allergy status to other antibiotic agents; Z88.8 Allergy status to other drugs, medicaments and biological substances; Z90.710 Acquired absence of both cervix and uterus; Z90.89 Acquired absence of other organs; Z98.890 Other specified postprocedural states; Z87.01 Personal history of pneumonia (recurrent)
CPT/HCPCS: 96372; 99284

== ENCOUNTER 2019-05-19 17:06 | Emergency (ER) | payer SELFPAY ==
[~2019-05-19] VITALS: Ht 162 cm; Wt 93.0 kg
[~2019-05-19 17:06] MED LIST changes: +CEPH500T PO; +PRD20T PO
--- NOTE | 2019-05-19 17:19 | ED Head Injury ---
General Stated Complaint: FALL - HIT HEAD Nursing Triage Note: pt states she got up this morning to go to restroom when she fell multiple times, is unsure of what caused fall, has neck pain and jaw pain Source: patient Exam Limitations: no limitations History of Present Illness Date Seen by Provider: May 19, 2019 Time Seen by Provider: 17:19 Initial Comments 53-year-old female who was sent over from [facility] [place] [facility] urgent care for head and neck pain after falling this morning around 0300. She reports that she got up from bed in was ambulating to the restroom when she fell striking the back of her head on the wooden frame of her bed. She is unsure if she lost consciousness and reports there was a brief moment when she did not know what was going on. She is alert and oriented on arrival to the emergency room. Reports taking her prescribed baclofen and hydrocodone for pain. Location Injury Occurred: pt residence Occurred: this morning Loss of Consciousness: unsure Associated Systoms: Headaches Allergies and Home Medications Allergies Coded Allergies: clindamycin (Verified Allergy, Intermediate, POLYSYSTEMIC ARTHRITIS, 08/23/16) meperidine (Verified Allergy, Intermediate, N/V, 09/28/16) Penicillins (Unverified Allergy, Mild, 06/05/15) Sulfa (Sulfonamide Antibiotics) (Unverified Allergy, Mild, 06/05/15) succinylcholine (Unverified Allergy, Unknown, 06/05/15) Uncoded Allergies: serum dex deficiency (Allergy, Mild, 03/08/09) PSEUDOCHOLINESTERASE (Allergy, Unknown, 06/05/15) Home Medications Allopurinol 100 Mg Tablet, 100 MG PO DAILY, (Reported) Alprazolam 1 Mg Tablet, 1.5 MG PO HS PRN for SLEEP, (Reported) Cephalexin 500 Mg Tablet, 500 MG PO QID Prescribed by: GAMALIEL WHITLOCK on 02/08/19 0955 Clonidine HCl 0.1 Mg Tablet, 0.1 MG PO QID, (Reported) Cyanocobalamin (Vitamin B-12) 1,000 Mcg Tablet.er, 1,000 MCG PO DAILY, (Reported) Estrogens,Conjugated 1.25 Mg Tablet, 1.25-2.5 MG PO DAILY, (Reported) take 1-2 (1.25mg tabs) Hydrocodone Bit/Acetaminophen 1 Each Tablet, 1-2 TAB PO 4-6HR PRN for PAIN Prescribed by: BEKAH RUTH on 08/25/16 1001 Nebivolol Hcl 10 Mg Tablet, 10 MG PO HS, (Reported) Oxycodone HCl/Acetaminophen 1 Each Tablet, 1-2 EACH PO Q6H PRN for BREAKTHROUGH PAIN Prescribed by: PAULINA JAMES on 03/11/181906 Polyethylene Glycol 3350 17 Gm Powd.pack, 17 GM PO DAILY PRN PRN for CONSTIPATION-1ST LINE Prescribed by: PAULINA JAMES on 03/11/181906 Potassium Chloride 8 Meq Tablet.sa, 8 MEQ PO BID, (Reported) Prednisone 20 Mg Tab, 40 MG PO DAILY Prescribed by: GAMALIEL WHITLOCK on 02/08/19 0955 Triamterene/Hydrochlorothiazid 1 Each Tablet, 1 EACH PO DAILY, (Reported) Ubidecarenone 400 Mg Capsule, 400 MG PO DAILY, (Reported) Vitamin E Acetate 400 Unit Capsule, 400 UNIT PO DAILY, (Reported) Patient Home Medication List Home Medication List Reviewed: Yes Review of Systems Review of Systems Constitutional: see HPI; No chills, No fever Musculoskeletal: see HPI, neck pain Psychiatric/Neurological: See HPI, Headache Past Fpctvcs-Sjgrla-Tminrd Hx Patient Social History Recent Foreign Travel: No Contact w/Someone Who Travel: No Recent Infectious Disease Expo: No Recent Hopitalizations: No Immunizations Up To Date Tetanus Booster (TDap): More than 5yrs Seasonal Allergies Seasonal Allergies: Yes Past Medical History Surgeries: Yes (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, LESION TO FOREARM, lesions) Adenoidectomy, Hysterectomy, Oophorectomy, Tonsillectomy Respiratory: No Pneumonia Cardiac: Yes Hypertension Neurological: Yes Headaches /Migraines 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 Sexually Transmitted Disease: No HIV/AIDS: No Gastrointestinal: No Musculoskeletal: Yes Chronic Back Pain, Gout Endocrine: No Loss of Vision: Bilateral Hearing Impairment: Denies Cancer: Yes Skin Psychosocial: Yes Sleep Difficulties, Anxiety Integumentary: No Blood Disorders: No Adverse Reaction/Blood Tranf: No Family Medical History FH: CAD (coronary artery disease) FH: Remedios Gehrig's disease Hypertension G8 BROTHER No Pertinent Family Hx Physical Exam Vital Signs Vital Signs - First Documented 05/19/19 05/19/19 17:15 19:03 Temp 36.4 Pulse 98 Resp 18 B/P (MAP) 130/96 Pulse Ox 97 O2 Delivery Room Air Capillary Refill : Less Than 3 Seconds Height, Weight, BMI Height: 5'4.00" Weight: 200lbs. 0.0oz. 90.309528mj; 35.00 BMI Method:Stated General Appearance: WD/WN, no apparent distress HEENT: PERRL/EOMI, normal ENT inspection, TMs normal Neck: full range of motion, supple, normal inspection, tender midline Cardiovascular: normal peripheral pulses, regular rate, rhythm, no edema, no gallop, no JVD, no murmur Respiratory: chest non-tender, lungs clear, normal breath sounds, no respiratory distress, no accessory muscle use Psychiatric: alert, oriented x 3 Crainal Nerves: normal hearing, normal speech, PERRL Coordination/Gait: normal finger to nose, normal gait Motor/Sensory: no motor deficit Skin: normal color, warm/dry Ralston Coma Score Best Eye Response: (4) Open Spontaneously Best Verbal Response: (5) Oriented Best Motor Response: (6) Obeys Commands Angely Total: 15 Progress/Results/Core Measures Results/Orders My Orders Orders - SATURNINO BARKER Ct Head/Cervical Spine Wo (05/19/19 17:18) Vital Signs/I&O 05/19/19 05/19/19 17:15 19:03 Temp 36.4 36.4 Pulse 98 84 Resp 18 18 B/P (MAP) 130/96 126/94 Pulse Ox 97 O2 Delivery Room Air Blood Pressure Mean: 107 Progress Progress Note : Time: 18:55 Progress Note I have seen and evaluated the patient. I've informed her of her imaging studies. She reports that her pain has subsided and believes that her muscle relaxer and pain medication is working. She agrees with plan of care, plans for discharge, return precautions were given. Departure Impression Primary Impression: Minor closed head injury Disposition: 01 HOME, SELF-CARE Condition: Stable/Unchanged Departure-Patient Inst. Decision time for Depature: 18:55 Referrals: MOR PIERRE DO (PCP/Family) Primary Care Physician Patient Instructions: Closed Head Injury (DC) Add. Discharge Instructions: Follow-up with Dr. PIERRE's office within 1 week for recheck. Take your prescribed medications like you're supposed to. Return back to the emergency room for worsening symptoms or concerns as needed. SATURNINO BARKER May 19, 2019 17:19
--- NOTE | 2019-05-19 18:06 | NUR ---
pt to CT to obtain images
--- NOTE | 2019-05-19 18:21 | NUR ---
pt states her pain is decreasing, pt denies any needs or c/o at this time,pt shows no s/s of distress, vs assessed and stable, will continue to monitor
--- NOTE | 2019-05-19 18:48 | Diagnostic Imaging Report ---
PROCEDURE: CT head and CT cervical spine without contrast. TECHNIQUE: Multiple contiguous axial images were obtained through the brain and cervical spine without the use of intravenous contrast. Sagittal and coronal reformations through the cervical spine were then performed. Auto Exposure Controls were utilized during the CT exam to meet ALARA standards for radiation dose reduction. INDICATION: Fall. Possible loss of consciousness. Posterior head and neck pain. COMPARISON: Comparison made with the prior CT head from August 11, 2013. FINDINGS: There are no CT findings of an acute intracranial abnormality. There is no evidence of intracranial hemorrhage. There is no intracranial mass effect or shift. There is no hydrocephalus. There is no abnormal extra-axial fluid collection. Basilar cisterns appear patent. There is no territorial loss of andujar-white differentiation. The mastoid air cells are clear. There are no fluid levels in the paranasal sinuses. Orbital contents are unremarkable. There are no findings of a calvarial fracture. There is no significant soft tissue abnormality. Cervical spine demonstrates straightening of the cervical lordosis. There is maintenance of normal alignment of the craniocervical junction. There is a normal relationship of the lateral masses of C1 and C2. The facets are normally aligned. There is no facet joint or disc space widening. The vertebral body heights appear maintained without evidence of an acute cervical spine fracture. There are mild degenerative features present within the cervical spine with some small uncovertebral spurs at C3-C4 and C4-C5 which appear to result in moderate narrowing of the neural foramen at each level. There is no high-grade canal stenosis. Lung apices appear clear. Soft tissues of the neck demonstrate no acute process. IMPRESSION: 1. No CT evidence of an acute intracranial abnormality. 2. No CT evidence of an acute cervical spine fracture or traumatic malalignment. 3. No evidence of high-grade canal stenosis. There appears to be moderate neuroforaminal stenosis at the C3-C4 and C4-C5 levels bilaterally. Dictated by: Dictated on workstation # [id number]
[2019-05-19 19:03] VITALS: BP 126/94
== END 2019-05-19 19:03 | disposition home or self-care (01) ==
LOC: EDUNIT# 17:06 → ER 17:07
DX: S09.90XA Unspecified injury of head, initial encounter (principal); I10 Essential (primary) hypertension; G43.909 Migraine, unspecified, not intractable, without status migrainosus; F41.9 Anxiety disorder, unspecified; R40.2142 Coma scale, eyes open, spontaneous, at arrival to emergency department; R40.2252 Coma scale, best verbal response, oriented, at arrival to emergency department; R40.2362 Coma scale, best motor response, obeys commands, at arrival to emergency department; Z82.49 Family history of ischemic heart disease and other diseases of the circulatory system; Z85.828 Personal history of other malignant neoplasm of skin; Z87.01 Personal history of pneumonia (recurrent); Z79.52 Long term (current) use of systemic steroids; Z88.1 Allergy status to other antibiotic agents; Z88.0 Allergy status to penicillin; Z88.2 Allergy status to sulfonamides; Z88.6 Allergy status to analgesic agent; Z86.018 Personal history of other benign neoplasm; Z90.710 Acquired absence of both cervix and uterus; Z90.89 Acquired absence of other organs; W01.190A Fall on same level from slipping, tripping and stumbling with subsequent striking against furniture, initial encounter
CPT/HCPCS: 70450; 72125

== ENCOUNTER 2020-03-13 03:43 | Emergency (ER) | payer OTHER ==
[~2020-03-13] VITALS: Ht 162.6 cm; Wt 95.3 kg
--- OUTSIDE RECORDS SUMMARY | 2020-03-13 03:55 | XMS REPORT ---
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 Name Role Phone TERRY TREVINO Unavailable PROBLEMS Unknown Problems ALLERGIES No Information ENCOUNTERS Encounter Location Date Diagnosis [facility] [address] [id number] [address] [address] May, Traumatic injury of head, in itial encounter S09.90XA and Strain of neck muscle, initial encounter S16.1XXA [facility] [address] [id number] [address] [address] Dec, Visit for TB skin test Z11.1 IMMUNIZATIONS No Known Immunizations SOCIAL HISTORY Never Assessed REASON FOR VISIT TB skin test -- stefani wilson PLAN OF CARE Activity Details Follow Up 48-72 hours Reason:TB read VITAL SIGNS MEDICATIONS No Known Medications RESULTS No Results PROCEDURES Procedure Date Ordered Result Body Site TB INTRADERMAL TEST December 09, 2018 TB INTRADERMAL 2018-12-09 Negative INSTRUCTIONS MEDICATIONS ADMINISTERED No Known Medications MEDICAL (GENERAL) HISTORY Type Description Date Medical History high blood pressure Surgical History tonsils Surgical History hysterectomy Hospitalization History surgery
--- OUTSIDE RECORDS SUMMARY | 2020-03-13 03:57 | XMS REPORT | CCD ---
Author Author Gale Appiah D.O. Organization [facility] Address [address] [place] [phone] Phone Care Team Providers Care Associate Chief Nurse Name Role Phone María Elena Appiah D.O., PP Unavailable CCM Unavailable Summary Purpose Interface Exchange Insurance Providers Payer name Policy type / Coverage type Covered constitution party ID Effective Begin Date Effective End Date [facility] Commercial Insurance [id number] Unknown Family History Family History data not found Social History Social History Element Codes Description Effective Dates Tobacco history SNOMED CT: 977357619 Never smoker 05/22/2011 Allergies, Adverse Reactions, Alerts Substance Reaction Codes Entered Date Inactivated Date Status * NO KNOWN FOOD ALLERGIES Unknown 12/27/2009 No Inactiv e Date Active _ Unknown 03/10/2013 No Inactive Date Active _ Unknown 12/27/2009 No Inactive Date Active PENICILLINS Unknown 03/04/2020 No Inactive Date Active SULFA (SULFONAMIDE ANTIBIOTICS) Unknown 12/27/2009 No I nactive Date Active Problems Condition Codes Effective Dates Condition Status Cellulitis of left foot ICD-9: 682.7 ICD-10: L03.116 03/04/2020 Active Blister (nonthermal), right foot, initial encounter IC D-9: 917.2 ICD-10: S90.821A 02/12/2020 Active Lower extremity edema ICD-9: 782.3 ICD-10: R60.0 12/13/2016 Active Type 2 diabetes mellitus with hyperglycemia ICD-9: 250 .02 ICD-10: E11.65 12/18/2017 Active Essential (primary) hypertension ICD-9: 401.9 ICD-10: I10 05/14/2014 Active Ingrowing nail ICD-9: 703.0 ICD-10: L60.0 08/29/2017 Active Hypertriglyceridemia ICD-9: 272.1 ICD-10: E78.1 09/30/2019 Active Cervicalgia ICD-9: 723.1 ICD-10: M54.2 09/29/2019 Active Hyperglycemia, unspecified ICD-9: 790.29 ICD-10: R73.9 12/10/2017 Active Mixed hyperlipidemia ICD-9: 272.4 ICD-10: E78.2 08/27/2014 Active Fall from bed, sequela ICD-9: E929.3 ICD-10: W06.XXXS 05/28/2019 Active Hormone replacement therapy ICD-9: V07.4 ICD-10: Z79.890 01/22/2019 Active Intervertebral disc disorders with radiculopathy, lumb ar region ICD-9: 722.10 ICD-10: M51.16 04/10/2017 Active Abnormal weight gain ICD-9: 783.1 ICD-10: R63.5 01/30/2018 Active Acute stress reaction ICD-9: 308.9 ICD-10: F43.0 05/19/2015 Active Pain in left elbow ICD-9: 719.42 ICD-10: M25.522 08/27/2018 Active Primary insomnia ICD-9: 780.52 ICD-10: F51.01 01/13/2014 Active Acute recurrent sinusitis, unspecified ICD-9: 461.9 ICD-10: J01.91 03/04/2014 Active Follicular disorder, unspecified ICD-9: 704.8 ICD-10: L73.9 08/09/2018 Active Tinea corporis ICD-9: 110.5 ICD-10: B35.4 07/22/2018 Active Anxiety disorder, unspecified ICD-9: 300.00 ICD-10: F41.9 09/20/2017 Active Menopausal and female climacteric states ICD-9: 627.2 ICD-10: N95.1 07/22/2018 Active Cellulitis of right toe ICD-9: 681.10 ICD-10: L03.031 12/07/2017 Active Migraine without aura, intractable, without status kang rainosus ICD-9: 346.11 ICD-10: G43.019 05/16/2018 Active Zoster without complications ICD-9: 053.9 ICD-10: B02.9 05/16/2018 Active Cellulitis of right lower limb ICD-9: 682.7 ICD-10: L03.115 03/15/2018 Active Cellulitis of left toe ICD-9: 681.10 ICD-10: L03.032 07/19/2017 Active Acute sinusitis, unspecified ICD-9: 461.9 ICD-10: J01.90 03/04/2014 Active Otitis media, unspecified, right ear ICD-9: 380.14 ICD-10: H66.91 08/09/2016 Active Acute suppurative otitis media without s pontaneous rupture of ear drum, left ear ICD-9: 382.00 ICD-10: H66.002 01/30/2018 Active Encounter for general adult medical examination withou t abnormal findings ICD-9: V70.9 ICD-10: Z00.00 12/18/2017 Active 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 ICD-9: 454.8 ICD-10: I83.893 12/18/2017 Active Nontoxic goiter, unspecified ICD-9: 240.9 ICD-10: E04.9 12/10/2017 Active Acute maxillary sinusitis, unspecified ICD-9: 461.0 ICD-10: J01.00 10/08/2017 Active Insomnia, unspecified ICD-9: 780.52 ICD-10: G47.00 09/20/2017 Active Major depressive disorder, single episode, unspecified ICD-9: 311 ICD-10: F32.9 09/20/2017 Active Snoring ICD-9: 786.09 ICD-10: R06.83 09/20/2017 Active Actinic keratosis ICD-9: 702.0 ICD-10: L57.0 01/13/2014 Active Chronic sinusitis, unspecified ICD-9: 473.9 ICD-10: J32.9 08/23/2016 Active Generalized hyperhidrosis ICD-9: 780.8 ICD-10: R61 06/27/2017 Active Other fatigue ICD-9: 780.79 ICD-10: R53.83 04/10/2017 Active Other benign neoplasm of skin of left lower limb, incl uding hip ICD-9: 216.7 ICD-10: D23.72 01/24/2017 Active 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 ICD-10: L81.4 12/13/2016 Active Pain in right leg ICD-9: 729.5 ICD-10: M79.604 11/17/2016 Active Cyanosis ICD-9: 782.5 ICD-10: R23.0 11/01/2016 Active Encounter for gynecological examination (general) (routine) without abnormal findings ICD-9: V72.31 ICD-10: Z01.419 10/17/2016 Active Encounter for routine child health examination without abnormal findings ICD-9: V20.2 ICD-10: Z00.129 10/17/2016 Active Other seasonal allergic rhinitis ICD-9: 477.9 ICD-10: J30.2 10/10/2016 Active 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, includin g shoulder ICD-9: 232.6 ICD-10: D04.62 09/18/2016 Active Contact with and (suspected) exposure to potentially h azardous body fluids ICD- 9: V15.85 ICD-10: Z77.21 09/18/2016 Active Pain in left arm ICD-9: 729.5 ICD-10: M79.602 09/18/2016 Active Unspecified open wound, right foot, sequela ICD-9: 906 .1 ICD-10: S91.301S 09/18/2016 Active Encounter for other screening for malignant neoplasm o f breast ICD-9: V76.10 ICD-10: Z12.39 09/17/2016 Active Allergic rhinitis due to pollen ICD-9: 477.9 ICD-10: J30.1 12/24/2013 Active Encounter for screening mammogram for malignant neopla sm of breast ICD-9: V76.12 ICD-10: Z12.31 08/22/2016 Active Acute bronchitis, unspecified ICD-9: 466.0 ICD-10: J20.9 04/21/2014 Active Pain in unspecified joint ICD-9: 719.49 ICD-10: M25.50 07/27/2016 Active Mammographic calcification found on diagnostic imaging of breast ICD-9: 793.89 ICD-10: R92.1 07/19/2016 Active Non-pressure chronic ulcer of other part of left foot limited to breakdown of skin ICD-9: 707.15 ICD-10: L97.521 07/19/2016 Active Blister (nonthermal), left great toe, initial encounte r ICD-9: 917.2 ICD-10: S90.422A 07/05/2016 Active Flushing ICD-9: 782.62 ICD-10: R23.2 03/02/2016 Active Urinary tract infection, site not specified ICD-9: 599 .0 ICD-10: N39.0 01/23/2016 Active Allergic rhinitis, unspecified ICD-9: 477.9 ICD-10: J30.9 12/24/2013 Active Other specified disorders of Eustachian tube, bilatera l ICD-9: 381.81 ICD-10: H69.83 12/24/2013 Active Panic disorder [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 a goraphobia ICD-9: 300.01 ICD-10: F41.0 12/07/2015 Active Local infection of the skin and subcutaneous tissue, u nspecified ICD-9: 686.9 ICD-10: L08.9 09/13/2015 Active Localized enlarged lymph nodes ICD-9: 785.6 ICD-10: R59.0 09/14/2015 Active Anemia Unknown 06/15/2015 Active Iron deficiency anemia, unspecified ICD-9: 280.9 ICD-10: D50.9 06/14/2015 Active Stress reaction ICD-9: 308.9 05/19/2015 Active Lumbar disc herniation with radiculopathy ICD-9: 722.10 2014 Active Skin lesion ICD-9: 709.9 05/09/2015 Active DERMATITIS NOS ICD-9: 692.9 03/15/2015 Active SINUSITIS, ACUTE ICD-9: 461.9 03/04/2014 Active Skin tag ICD-9: 701.9 10/27/2014 Active Verruca ICD-9: 078.10 10/27/2014 Active Otitis media ICD-9: 382.9 09/11/2014 Active HYPERLIPIDEMIA NEC/NOS ICD-9: 272.4 08/27/2014 Active ABDOMINAL PAIN ICD-9: 789.00 07/21/2014 Active DYSPEPSIA ICD-9: 536.8 07/21/2014 Active Thoracic back pain ICD-9: 724.1 07/21/2014 Active - I - HYPERTENSION ICD-9: 401.9 05/14/2014 Active EDEMA ICD-9: 782.3 05/14/2014 Active ROUTINE MEDICAL EXAM ICD-9: V70.0 05/14/2014 Active Thyromegaly ICD-9: 240.9 05/14/2014 Active BRONCHITIS, ACUTE ICD-9: 466.0 04/21/2014 Active VACCINE FOR TDAP ICD-9: V06.1 ICD-10: Z23 02/27/2014 Active ACTINIC KERATOSIS ICD-9: 702.0 01/13/2014 Active INSOMNIA NOS ICD-9: 780.52 01/13/2014 Active Seborrheic keratoses, inflamed ICD-9: 702.11 01/13/2014 A ctive ALLERGIC RHINITIS ICD-9: 477.9 12/24/2013 Active EUSTACHIAN TUBE DYSFUNCTION ICD-9: 381.81 12/24/2013 Acti ve Serous otitis media ICD-9: 381.4 12/24/2013 Active ASYMPTOMATIC VARICOSE VEINS ICD-9: 454.9 09/22/2013 Acti ve History of benign spinal cord tumor ICD-9: V12.49 08/04/2013 Active CEPHALGIA, TENSION ICD-9: 307.81 07/23/2013 Active SCIATICA ICD-9: 724.3 12/04/2012 Active Exacerbation of RAD (reactive airway disease) ICD-9: 493.92 Active PNEUMONIA, ORGANISM ICD-9: 486 11/21/2012 Active Cephalgia ICD-9: 784.0 10/29/2012 Active URINARY FREQUENCY ICD-9: 788.41 09/27/2012 Active Skin cancer of face ICD-9: 173.31 08/12/2012 Active GOUT ICD-9: 274.9 05/06/2012 Active Tachycardia ICD-9: 785.0 05/06/2012 Active Ankle pain ICD-9: 719.47 02/20/2012 Active CELLULITIS ICD-9: 682.9 02/20/2012 Active Cervical pain ICD-9: 723.1 01/10/2012 Active LYMPHADENOPATHY ICD-9: 785.6 09/13/2011 Active MALAISE AND FATIGUE ICD-9: 780.79 08/31/2011 Active Hypertension Unknown 05/22/2011 Active Dehydration ICD-9: 276.51 05/09/2011 Active MIGRAINE NOS/NOT INTRCBL ICD-9: 346.90 05/09/2011 Active Vomiting ICD-9: 787.03 05/09/2011 Active ARTHRALGIA-MULTIPLE SITES ICD-9: 719.49 01/18/2011 Active RHEUMATOID ARTHRITIS ICD-9: 714.0 01/18/2011 Active PAIN, LOWER BACK ICD-9: 724.2 11/29/2010 Active SPASM OF MUSCLE ICD-9: 728.85 11/29/2010 Active COUGH ICD-9: 786.2 10/10/2010 Active Seborrheic keratosis ICD-9: 702.19 07/19/2010 Active TMJ (temporomandibular joint syndrome) ICD-9: 524.60 0 Active Acute serous otitis media ICD-9: 381.01 04/05/2010 Active Hypogonadism, ovarian ICD-9: 256.39 03/03/2010 Active Abnormal uterine bleeding ICD-9: 626.9 01/17/2010 Active FLUSHING ICD-9: 782.62 12/27/2009 Active Medications Medication Codes Instructions Start Date Stop Date Status Fill Instructions doxycycline hyclate 100 mg capsule RxNorm: 3587716 1 Cap johanna(s) Oral two times a day 03/04/2020 03/18/2020 Active prednisone 20 mg tablet RxNorm: 664387 1 Tablet(s) Oral two sawyer es a day 03/04/2020 03/09/2020 Active cyclobenzaprine 10 mg tablet RxNorm: 189490 TAKE ONE TA BLET BY MOUTH THREE TIMES A DAY NEEDED FOR MUSCLE SPASMS 02/27/2020 No Stop Date Active hydrocodone 10 mg-acetaminophen 325 mg tablet RxNorm: 583222 1-2 Tablet(s) Oral three times a day as needed for pain 02/27/2020 02/27/2020 Inactive Premarin 1.25 mg tablet RxNorm: 772469 1 Tablet(s) Oral QD 02/16/20 20 05/15/2020 Active celecoxib 200 mg capsule RxNorm: 449888 1 Capsule(s) Or al two times a day as needed for pain 02/16/2020 05/15/2020 Active Farxiga 10 mg tablet RxNorm: 5304392 1 Tablet(s) Oral QAM 02/13/2020 05/13/2020 Active Farxiga 10 mg tablet RxNorm: 7971280 1 Tablet(s) Oral QAM 02/13/2020 02/12/2020 Inactive Keflex 500 mg capsule RxNorm: 748855 1 Capsule(s) Oral two time s a day 02/12/2020 02/19/2020 Inactive Lipitor 10 mg tablet RxNorm: 030514 TAKE ONE TABLET BY MOUTH DAILY 01/23/2020 No Stop Date Active Januvia 100 mg tablet RxNorm: 275787 TAKE ONE TABLET BY MOUTH DAILY 01/22/2020 No Stop Date Active gabapentin 300 mg capsule RxNorm: 286703 TAKE ONE CAPSU LE BY MOUTH EVERY NIGHT AT BEDTIME 01/22/2020 No Stop Date Active allopurinol 300 mg tablet RxNorm: 998583 TAKE ONE TABLET BY LOPEZ TH DAILY 01/22/2020 No Stop Date Active Klor-Con 8 mEq tablet,extended release RxNorm: 820115 T FARRUKH ONE TABLET BY MOUTH TWICE A DAY 01/22/2020 No Stop Date Active doxepin 25 mg capsule RxNorm: 5129659 TAKE ONE CAPSULE B Y MOUTH EVERY NIGHT AT BEDTIME NEEDED FOR SLEEP 01/22/2020 No Stop Date Active glimepiride 4 mg tablet RxNorm: 244316 1 Tablet(s) Oral two times a day replaces 2mg dose 01/13/2020 04/12/2020 Active lisinopril 40 mg tablet RxNorm: 136705 1 Tablet(s) Oral QD repl aces 20mg dose 01/13/2020 04/12/2020 Active hydrocodone 10 mg-acetaminophen 325 mg tablet RxNorm: 841527 1-2 Tablet(s) Oral three times a day as needed for pain 01/12/2020 02/26/2020 Inactive cyclobenzaprine 10 mg tablet RxNorm: 430703 TAKE ONE TA BLET BY MOUTH THREE TIMES A DAY NEEDED FOR MUSCLE SPASMS 01/05/2020 02/26/2020 Inactive triamterene 75 mg-hydrochlorothiazide 50 mg tablet RxNorm: 3 19193 TAKE ONE TABLET BY MOUTH DAILY 12/29/2019 No Stop Date Active Klor-Con 8 mEq tablet,extended release RxNorm: 577983 T FARRUKH ONE TABLET BY MOUTH TWICE A DAY 12/19/2019 01/21/2020 Inactive allopurinol 300 mg tablet RxNorm: 659758 TAKE ONE TABLET BY LOPEZ TH DAILY 12/19/2019 01/21/2020 Inactive glimepiride 2 mg tablet RxNorm: 493305 TAKE ONE TABLET BY MOUTH TWICE A DAY 12/19/2019 01/12/2020 Inactive hydrocodone 10 mg-acetaminophen 325 mg tablet RxNorm: 191527 1-2 Tablet(s) Oral three times a day as needed for pain 12/10/2019 01/11/2020 Inactive Januvia 100 mg tablet RxNorm: 710610 1 Tablet(s) Oral QD 11/20/2019 0 11/20/2019 Inactive glimepiride 2 mg tablet RxNorm: 183525 1 Tablet(s) Oral two sawyer es a day 11/20/2019 12/18/2019 Inactive cyclobenzaprine 10 mg tablet RxNorm: 280131 TAKE ONE TA BLET BY MOUTH THREE TIMES A DAY NEEDED FOR MUSCLE SPASMS 11/17/2019 01/04/2020 Inactive doxepin 25 mg capsule RxNorm: 7849944 TAKE ONE CAPSULE B Y MOUTH EVERY NIGHT AT BEDTIME NEEDED FOR SLEEP 11/16/2019 01/21/2020 Inactive Klor-Con 8 mEq tablet,extended release RxNorm: 629763 T FARRUKH ONE TABLET BY MOUTH TWICE A DAY 11/16/2019 12/18/2019 Inactive hydrocodone 10 mg-acetaminophen 325 mg tablet RxNorm: 749637 1-2 Tablet(s) Oral three times a day as needed for pain 11/10/2019 12/09/2019 Inactive cyclobenzaprine 10 mg tablet RxNorm: 091170 TAKE ONE TA BLET BY MOUTH THREE TIMES A DAY NEEDED FOR MUSCLE SPASMS 10/23/2019 11/16/2019 Inactive duloxetine 60 mg capsule,delayed release RxNorm: 556303 1 Capsu le(s) Oral QD 10/17/2019 04/13/2020 Active Singulair 10 mg tablet RxNorm: 770969 1 Tablet(s) Oral QD 10/17/2019 04/14/2020 Active metoprolol tartrate 100 mg tablet RxNorm: 543344 1 Tabl et(s) Oral two times a day 10/17/2019 04/13/2020 Active clonidine HCl 0.1 mg tablet RxNorm: 666577 1 Tablet(s) Oral fou r times a day 10/17/2019 04/13/2020 Active celecoxib 200 mg capsule RxNorm: 050566 1 Capsule(s) Or al two times a day as needed for pain 10/17/2019 02/15/2020 Inactive lisinopril 20 mg tablet RxNorm: 701730 1 Tablet(s) Oral QD 10/17/19 20 01/12/2020 Inactive gabapentin 300 mg capsule RxNorm: 134258 1 Capsule(s) O ral every night at bedtime 10/17/2019 01/15/2020 Inactive Klor-Con 8 mEq tablet,extended release RxNorm: 261306 1 Tablet(s) Oral two times a day 10/17/2019 11/15/2019 Inactive Januvia 100 mg tablet RxNorm: 870599 1 Tablet(s) Oral QD 10/17/2019 0 01/12/2020 Inactive Lipitor 10 mg tablet RxNorm: 547544 1 Tablet(s) Oral QD 10/17/2019 Inactive Steglatro 15 mg tablet RxNorm: 1725438 1 Tablet(s) Oral QD 10/17/19 20 02/12/2020 Inactive Glyxambi 25 mg-5 mg tablet RxNorm: 5259883 1 Tablet(s) Oral QD 01/202010/16/2019 Inactive Patient will bring in copay discount card as well Glyxambi 25 mg-5 mg tablet RxNorm: 4842718 1 Tablet(s) Oral QD 01/202010/14/2019 Inactive Patient will bring in copay discount card as well Keflex 500 mg capsule RxNorm: 632607 1 Capsule(s) Oral two time s a day 10/07/2019 10/14/2019 Inactive Premarin 1.25 mg tablet RxNorm: 105607 1 Tablet(s) Oral QD 09/30/19 20 02/15/2020 Inactive hydrocodone 10 mg-acetaminophen 325 mg tablet RxNorm: 831729 1-2 Tablet(s) Oral three times a day as needed for pain 09/30/2019 09/30/2019 Inactive baclofen 10 mg tablet RxNorm: 329794 TAKE ONE TABLET BY MOUTH THREE TIMES A DAY NEEDED 09/19/2019 No Stop Date Active gabapentin 300 mg capsule RxNorm: 335527 TAKE ONE CAPSU LE BY MOUTH EVERY NIGHT AT BEDTIME 09/19/2019 10/16/2019 Inactive Klor-Con 8 mEq tablet,extended release RxNorm: 696495 T FARRUKH ONE TABLET BY MOUTH TWICE A DAY 1 Tablet(s) Oral two times a day 09/19/2019 10/16/2019 Renu ctive hydrocodone 10 mg-acetaminophen 325 mg tablet RxNorm: 497897 1-2 Tablet(s) Oral three times a day as needed for pain 09/19/2019 09/29/2019 Inactive duloxetine 60 mg capsule,delayed release RxNorm: 917071 TAKE ONE CAPSULE BY MOUTH DAILY 09/11/2019 10/16/2019 Inactive Lipitor 10 mg tablet RxNorm: 098343 TAKE ONE TABLET BY MOUTH AT BEDTIME 09/11/2019 10/16/2019 Inactive lisinopril 20 mg tablet RxNorm: 006737 TAKE ONE TABLET BY MOUTH DAILY .... THIS REPLACE 10MG TABLETS 09/11/2019 10/16/2019 Inactive triamterene 75 mg-hydrochlorothiazide 50 mg tablet RxNorm: 3 40580 TAKE ONE TABLET BY MOUTH DAILY 09/11/2019 12/28/2019 Inactive allopurinol 300 mg tablet RxNorm: 981012 TAKE ONE TABLET BY LOPEZ TH DAILY 09/11/2019 12/18/2019 Inactive celecoxib 200 mg capsule RxNorm: 644879 TAKE ONE CAPSUL E BY MOUTH TWICE A DAY NEEDED FOR PAIN 09/11/2019 10/16/2019 Inactive clonidine HCl 0.1 mg tablet RxNorm: 845657 TAKE ONE TAB LET BY MOUTH FOUR TIMES A DAY 09/11/2019 10/16/2019 Inactive doxepin 25 mg capsule RxNorm: 3000255 1 Capsule(s) Oral every night at bedtime as needed for sleep 08/21/2019 11/15/2019 Inactive hydrocodone 10 mg-acetaminophen 325 mg tablet RxNorm: 504125 1-2 Tablet(s) PO TID 08/12/2019 09/29/2019 Inactive as needed for pa in - Previous quantity #240, will start dosing for #180 in April [address] Ignacio. Medrol (Dustin) 4 mg tablets in a dose pack RxNorm: 086476 Tablet(s) Oral As Directed 07/21/2019 09/29/2019 Inactive Premarin 1.25 mg tablet RxNorm: 437361 1 Tablet(s) Oral QD 07/02/2009/29/2019 Inactive hydrocodone 10 mg-acetaminophen 325 mg tablet RxNorm: 615133 1-2 Tablet(s) PO TID 07/01/2019 08/11/2019 Inactive as needed for pa in - Previous quantity #240, will start dosing for #180 in April [address] Ignacio. gabapentin 300 mg capsule RxNorm: 100221 1 Capsule(s) PO QHS 201809/18/2019 Inactive celecoxib 200 mg capsule RxNorm: 028949 1 Capsule(s) Or al two times a day as needed for pain 06/27/2019 06/27/2019 Inactive doxepin 25 mg capsule RxNorm: 1784787 TAKE ONE CAPSULE B Y MOUTH EVERY NIGHT AT BEDTIME NEEDED FOR SLEEP 06/24/2019 08/20/2019 Inactive Singulair 10 mg tablet RxNorm: 002489 TAKE ONE TABLET BY MOUTH JOSÉ Y 06/24/2019 10/16/2019 Inactive furosemide 40 mg tablet RxNorm: 022846 TAKE ONE TABLET BY MOUTH EVERY MORNING NEEDED FOR EDEMA . TAKE WITH POTASSIUM 06/24/2019 01/12/2020 Inactive lisinopril 20 mg tablet RxNorm: 937363 TAKE ONE TABLET BY MOUTH DAILY .... THIS REPLACE 10MG TABLETS 06/24/2019 09/10/2019 Inactive nystatin-triamcinolone 100,000 unit/g-0.1 % topical cream Rx Norm: 6306871 1 Application Topical two times a day 06/12/2019 06/19/2019 Inactive apply BID for 1 week nystatin-triamcinolone 100,000 unit/g-0.1 % topical cream Rx Norm: 6263233 1 Application Topical two times a day 06/12/2019 06/11/2019 Inactive apply BID for 1 week hydrocodone 10 mg-acetaminophen 325 mg tablet RxNorm: 231036 1-2 Tablet(s) PO QID as needed for pain MUST LAST 30 DAYS 05/28/2019 06/26/2019 Inactiv e (Response to an electronic controlled substance refill request - RxReferenceNumber: [id number]) baclofen 20 mg tablet RxNorm: 196996 1 Tablet(s) PO TID as needed for muscle spasm 05/19/2019 05/27/2019 Inactive gabapentin 300 mg capsule RxNorm: 400399 1 Capsule(s) PO QHS 201805/27/2019 Inactive lisinopril 20 mg tablet RxNorm: 704738 1 Tablet(s) PO Q D TAKE ONE TABLET BY MOUTH DAILY, REPLACES 10 MG DOSE 05/19/2019 06/23/2019 Inactive doxepin 25 mg capsule RxNorm: 5687558 TAKE ONE CAPSULE B Y MOUTH EVERY NIGHT AT BEDTIME NEEDED FOR SLEEP 05/16/2019 06/14/2019 Inactive lisinopril 20 mg tablet RxNorm: 454476 TAKE ONE TABLET BY MOUTH DAILY, REPLACES 10 MG DOSE 05/16/2019 05/18/2019 Inactive Singulair 10 mg tablet RxNorm: 270936 TAKE ONE TABLET BY MOUTH JOSÉ Y 05/16/2019 06/14/2019 Inactive gabapentin 300 mg capsule RxNorm: 893349 1 Capsule(s) PO QHS 201805/04/2019 Inactive estropipate 1.5 mg tablet RxNorm: 698054 1 Tablet(s) PO QD 05/05/2005/27/2019 Inactive estropipate 1.5 mg tablet RxNorm: 362124 1 Tablet(s) PO QD 05/05/20 19 05/04/2019 Inactive gabapentin 300 mg capsule RxNorm: 812304 1 Capsule(s) PO QHS 201805/18/2019 Inactive hydrocodone 10 mg-acetaminophen 325 mg tablet RxNorm: 343328 1-2 Tablet(s) PO QID as needed for pain MUST LAST 30 DAYS 04/25/2019 05/24/2019 Inactiv e (Response to an electronic controlled substance refill request - RxReferenceNumber: [id number]) cyclobenzaprine 10 mg tablet RxNorm: 631886 TAKE ONE TA BLET BY MOUTH THREE TIMES A DAY NEEDED FOR MUSCLE SPASMS 04/24/2019 05/18/2019 Inactive metoprolol tartrate 100 mg tablet RxNorm: 760060 TAKE O NE TABLET BY MOUTH TWICE A DAY 04/24/2019 10/16/2019 Inactive Lyrica 75 mg capsule RxNorm: 793034 1 Capsule(s) PO QHS 03/25/2019 Inactive duloxetine 60 mg capsule,delayed release RxNorm: 633219 TAKE ONE CAPSULE BY MOUTH DAILY 03/21/2019 05/19/2019 Inactive triamterene 75 mg-hydrochlorothiazide 50 mg tablet RxNorm: 3 83255 TAKE ONE TABLET BY MOUTH DAILY 03/21/2019 05/19/2019 Inactive Klor-Con 8 mEq tablet,extended release RxNorm: 363800 T FARRUKH ONE TABLET BY MOUTH TWICE A DAY 03/21/2019 09/18/2019 Inactive Lipitor 10 mg tablet RxNorm: 559576 TAKE ONE TABLET BY MOUTH AT BEDTIME 03/21/2019 09/10/2019 Inactive clonidine HCl 0.1 mg tablet RxNorm: 113345 TAKE ONE TAB LET BY MOUTH FOUR TIMES A DAY 03/21/2019 05/19/2019 Inactive allopurinol 300 mg tablet RxNorm: 762852 TAKE ONE TABLET BY LOPEZ TH DAILY 03/21/2019 05/19/2019 Inactive hydrocodone 10 mg-acetaminophen 325 mg tablet RxNorm: 505852 1-2 Tablet(s) PO QID as needed for pain MUST LAST 30 DAYS 02/28/2019 03/29/2019 Inactiv e (Response to an electronic controlled substance refill request - RxReferenceNumber: [id number]) furosemide 40 mg tablet RxNorm: 050312 TAKE ONE TABLET BY MOUTH EVERY MORNING NEEDED FOR EDEMA . TAKE WITH POTASSIUM 02/21/2019 03/22/2019 Inactive cyclobenzaprine 10 mg tablet RxNorm: 511443 TAKE ONE TA BLET BY MOUTH THREE TIMES A DAY NEEDED FOR MUSCLE SPASMS 02/21/2019 04/21/2019 Inactive lisinopril 20 mg tablet RxNorm: 399657 TAKE ONE TABLET BY MOUTH DAILY, REPLACES 10 MG DOSE 02/21/2019 05/15/2019 Inactive doxepin 25 mg capsule RxNorm: 7559943 TAKE ONE CAPSULE B Y MOUTH EVERY NIGHT AT BEDTIME NEEDED FOR SLEEP 02/21/2019 05/15/2019 Inactive nystatin 100,000 unit/gram topical cream RxNorm: 419147 APPLY TO AFFECTED AREA(S) TWO TIMES A DAY 02/21/2019 03/22/2019 Inactive estradiol 1 mg tablet RxNorm: 711751 2 Tablet(s) PO QD replaces premarin 01/22/2019 05/04/2019 Inactive lisinopril 20 mg tablet RxNorm: 397861 TAKE ONE TABLET BY MOUTH DAILY, REPLACES 10 MG DOSE 01/20/2019 02/18/2019 Inactive cyclobenzaprine 10 mg tablet RxNorm: 931035 TAKE ONE TA BLET BY MOUTH THREE TIMES A DAY NEEDED FOR MUSCLE SPASMS 01/20/2019 02/18/2019 Inactive metoprolol tartrate 100 mg tablet RxNorm: 078398 TAKE O NE TABLET BY MOUTH TWICE A DAY 01/20/2019 02/18/2019 Inactive cyclobenzaprine 10 mg tablet RxNorm: 887094 TAKE ONE TA BLET BY MOUTH THREE TIMES A DAY NEEDED FOR MUSCLE SPASMS 12/19/2018 01/17/2019 Inactive lisinopril 20 mg tablet RxNorm: 208565 TAKE ONE TABLET BY MOUTH DAILY, REPLACES 10 MG DOSE 12/19/2018 01/17/2019 Inactive duloxetine 60 mg capsule,delayed release RxNorm: 314968 TAKE ONE CAPSULE BY MOUTH DAILY 12/19/2018 01/17/2019 Inactive Lipitor 10 mg tablet RxNorm: 371963 TAKE ONE TABLET BY MOUTH AT BEDTIME 12/19/2018 01/17/2019 Inactive cyclobenzaprine 10 mg tablet RxNorm: 619967 1 Tablet(s) PO TID as needed for muscle spasm 11/19/2018 12/18/2018 Inactive Singulair 10 mg tablet RxNorm: 998524 1 Tablet(s) PO QD 11/19/2018 Inactive lisinopril 20 mg tablet RxNorm: 954365 TAKE ONE TABLET BY MOUTH DAILY, REPLACES 10 MG DOSE 11/15/2018 12/18/2018 Inactive hydrocodone 10 mg-acetaminophen 325 mg tablet RxNorm: 897138 1-2 Tablet(s) PO QID as needed for pain MUST LAST 30 DAYS 11/13/2018 12/12/2018 Inactiv e (Response to an electronic controlled substance refill request - RxReferenceNumber: [id number]) nystatin 100,000 unit/gram topical cream RxNorm: 179862 APPLY TO AFFECTED AREA(S) TWO TIMES A DAY 10/23/2018 11/06/2018 Inactive lisinopril 20 mg tablet RxNorm: 551877 1 Tablet(s) PO QD replac es 10mg dose 10/18/2018 11/14/2018 Inactive hydrocodone 10 mg-acetaminophen 325 mg tablet RxNorm: 171735 1-2 Tablet(s) QID as needed for pain MUST LAST 30 DAYS 10/08/2018 11/06/2018 Inactive (Response to an electronic controlled substance refill request [facility] [id number] lisinopril 10 mg tablet RxNorm: 672081 1 Tablet(s) PO QD 10/03/2018 0 01/21/2019 Inactive Celebrex 200 mg capsule RxNorm: 430790 TAKE ONE CAPSULE BY MOUT H TWICE A DAY 09/30/2018 05/04/2019 Inactive cyclobenzaprine 10 mg tablet RxNorm: 718306 TAKE ONE TA BLET BY MOUTH THREE TIMES A DAY NEEDED FOR MUSCLE SPASMS 09/30/2018 11/18/2018 Inactive doxepin 25 mg capsule RxNorm: 5409505 TAKE ONE CAPSULE B Y MOUTH EVERY NIGHT AT BEDTIME NEEDED 09/05/2018 10/16/2018 Inactive omeprazole 40 mg capsule,delayed release RxNorm: 613730 TAKE ONE CAPSULE BY MOUTH DAILY 09/05/2018 01/21/2019 Inactive furosemide 40 mg tablet RxNorm: 978746 TAKE ONE TABLET BY MOUTH EVERY MORNING NEEDED FOR EDEMA . TAKE WITH POTASSIUM 09/05/2018 11/03/2018 Inactive phentermine 37.5 mg tablet RxNorm: 653728 1 Tablet(s) PO QAM 201701/21/2019 Inactive doxepin 25 mg capsule RxNorm: 2178519 1 Capsule(s) PO QH S as needed for sleep TAKE ONE CAPSULE BY MOUTH EVERY NIGHT AT BEDTIME NEEDED 08/27/2018 09/04/2018 Inactive Keflex 500 mg capsule RxNorm: 717410 1 Capsule(s) PO TID 08/09/2018 1 10/19/2017 Inactive Diflucan 100 mg tablet RxNorm: 907565 1 Tablet(s) PO QD 08/09/2018 Inactive Premarin 1.25 mg tablet RxNorm: 909665 2 Tablet(s) PO QD 08/09/2018 0 05/04/2019 Inactive Zofran ODT 4 mg disintegrating tablet RxNorm: 444935 1 Tablet(s) PO Q4H as needed for nausea 08/09/2018 01/21/2019 Inactive metoprolol tartrate 100 mg tablet RxNorm: 687841 TAKE O NE TABLET BY MOUTH TWICE A DAY 2018 10/04/2018 Inactive doxepin 25 mg capsule RxNorm: 2937370 TAKE ONE CAPSULE B Y MOUTH EVERY NIGHT AT BEDTIME NEEDED 2018 08/26/2018 Inactive cyclobenzaprine 10 mg tablet RxNorm: 642814 TAKE ONE TA BLET BY MOUTH THREE TIMES A DAY NEEDED FOR MUSCLE SPASMS 2018 09/29/2018 Inactive hydrocodone 10 mg-acetaminophen 325 mg tablet RxNorm: 737268 1-2 Tablet(s) QID as needed for pain MUST LAST 30 DAYS 07/29/2018 08/27/2018 Inactive (Response to an electronic controlled substance refill request - RxReferenceNumber: [id number]) nystatin 100,000 unit/gram topical powder RxNorm: 797315 Applic ation TOP BID 07/22/2018 08/04/2018 Inactive doxepin 25 mg capsule RxNorm: 4092670 1 Capsule(s) PO QHS as needed 07/22/2018 08/05/2018 Inactive triamterene 75 mg-hydrochlorothiazide 50 mg tablet RxNorm: 3 58448 TAKE ONE TABLET BY MOUTH DAILY 07/05/2018 10/02/2018 Inactive duloxetine 60 mg capsule,delayed release RxNorm: 498718 TAKE ONE CAPSULE BY MOUTH DAILY 07/05/2018 09/02/2018 Inactive Klor-Con 8 mEq tablet,extended release RxNorm: 041071 T FARRUKH ONE TABLET BY MOUTH TWICE A DAY 07/05/2018 10/02/2018 Inactive Lipitor 10 mg tablet RxNorm: 663380 TAKE ONE TABLET BY MOUTH AT BEDTIME 07/05/2018 09/02/2018 Inactive allopurinol 300 mg tablet RxNorm: 269273 TAKE ONE TABLET BY LOPEZ TH DAILY 07/05/2018 10/02/2018 Inactive clonidine HCl 0.1 mg tablet RxNorm: 882736 TAKE ONE TAB LET BY MOUTH FOUR TIMES A DAY 07/05/2018 10/02/2018 Inactive hydrocodone 10 mg-acetaminophen 325 mg tablet RxNorm: 366454 1-2 Tablet(s) QID as needed for pain MUST LAST 30 DAYS 06/28/2018 07/27/2018 Inactive (Response to an electronic controlled substance refill request - RxReferenceNumber: [id number]) MediHoney (calcium alginate-honey) 4" X 5" bandage RxNorm: 1 Application TOP QD 06/17/2018 06/26/2018 Inactive honey-hydrocolloid dressing 4" X 5" RxNorm: 1 Application TOP QD 06/17/2018 07/16/2018 Inactive furosemide 40 mg tablet RxNorm: 498220 TAKE ONE TABLET BY MOUTH EVERY MORNING NEEDED FOR EDEMA . TAKE WITH POTASSIUM 06/10/2018 07/09/2018 Inactive This is a refill request. hydrocodone 10 mg-acetaminophen 325 mg tablet RxNorm: 707303 1-2 Tablet(s) QID as needed for pain MUST LAST 30 DAYS 05/30/2018 06/27/2018 Inactive (Response to an electronic controlled substance refill request - RxReferenceNumber: [id number]) acyclovir 800 mg tablet RxNorm: 757152 1 Tablet(s) PO 5x day 201705/22/2018 Inactive Premarin 1.25 mg tablet RxNorm: 074718 1-2 Tablet(s) PO QD 05/15/20 18 07/13/2018 Inactive cyclobenzaprine 10 mg tablet RxNorm: 313970 1 Tablet(s) PO TID as needed for muscle spasm 05/09/2018 05/08/2018 Inactive Medrol (Dustin) 4 mg tablets in a dose pack RxNorm: 707633 Tablet(s) PO As Directed 05/02/2018 06/16/2018 Inactive hydrocodone 10 mg-acetaminophen 325 mg tablet RxNorm: 473498 1-2 Tablet(s) QID as needed for pain MUST LAST 30 DAYS 04/30/2018 05/29/2018 Inactive (Response to an electronic controlled substance refill request - RxReferenceNumber: [id number]) duloxetine 60 mg capsule,delayed release RxNorm: 036438 TAKE ONE CAPSULE BY MOUTH DAILY 04/16/2018 05/15/2018 Inactive Celebrex 200 mg capsule RxNorm: 936621 TAKE ONE CAPSULE BY MOUT H TWICE A DAY 04/16/2018 06/14/2018 Inactive Singulair 10 mg tablet RxNorm: 494904 TAKE ONE TABLET BY MOUTH JOSÉ Y 04/16/2018 11/19/2018 Inactive Lipitor 10 mg tablet RxNorm: 786260 TAKE ONE TABLET BY MOUTH AT BEDTIME 04/16/2018 05/15/2018 Inactive hydrocodone 10 mg-acetaminophen 325 mg tablet RxNorm: 413738 1-2 Tablet(s) QID as needed for pain MUST LAST 30 DAYS 03/29/2018 04/27/2018 Inactive (Response to an electronic controlled substance refill request - RxReferenceNumber: [id number]) cyclobenzaprine 10 mg tablet RxNorm: 753097 1 Tablet(s) PO TID as needed for muscle spasm 03/18/2018 05/09/2018 Inactive omeprazole 40 mg capsule,delayed release RxNorm: 428549 1 Capsu le(s) PO QD 02/26/2018 08/24/2018 Inactive hydrocodone 10 mg-acetaminophen 325 mg tablet RxNorm: 578335 1-2 Tablet(s) QID as needed for pain MUST LAST 30 DAYS 02/26/2018 03/27/2018 Inactive (Response to an electronic controlled substance refill request - RxReferenceNumber: [id number]) metoprolol tartrate 100 mg tablet RxNorm: 736472 1 Tablet(s) PO BID 02/18/2018 08/05/2018 Inactive Lyrica 75 mg capsule RxNorm: 895182 1 Capsule(s) PO QHS 01/30/2018 Inactive phentermine 37.5 mg tablet RxNorm: 919573 1 Tablet(s) PO QAM 201706/16/2018 Inactive hydrocodone 10 mg-acetaminophen 325 mg tablet RxNorm: 202977 1-2 Tablet(s) QID as needed for pain MUST LAST 30 DAYS 01/29/2018 02/25/2018 Inactive (Response to an electronic controlled substance refill request - RxReferenceNumber: [id number]) Klor-Con 8 mEq tablet,extended release RxNorm: 527242 1 Tablet( s) PO BID 01/14/2018 07/04/2018 Inactive allopurinol 300 mg tablet RxNorm: 539841 1 Tablet(s) PO QD 01/15/2007/04/2018 Inactive Lipitor 10 mg tablet RxNorm: 100859 1 Tablet(s) PO QHS 01/14/201812/2017 Inactive triamterene 75 mg-hydrochlorothiazide 50 mg tablet RxNorm: 3 38200 1 Tablet(s) PO QD 01/14/2018 07/04/2018 Inactive hydrocodone 10 mg-acetaminophen 325 mg tablet RxNorm: 838277 1-2 Tablet(s) QID as needed for pain MUST LAST 30 DAYS 12/27/2017 01/25/2018 Inactive (Response to an electronic controlled substance refill request - RxReferenceNumber: [id number]) Onglyza 5 mg tablet RxNorm: 926504 1 Tablet(s) PO QD 12/18/201701/29 Inactive metformin 500 mg tablet RxNorm: 533122 1 Tablet(s) PO BID 12/11/2017 12/10/2017 Inactive metformin 500 mg tablet RxNorm: 838931 1 Tablet(s) PO BID 12/11/2017 12/17/2017 Inactive furosemide 40 mg tablet RxNorm: 535242 1 Tablet(s) PO Q AM prn edema--take with potassium 12/11/2017 06/08/2018 Inactive cyclobenzaprine 10 mg tablet RxNorm: 007966 1 Tablet(s) PO TID as needed for muscle spasm 12/11/2017 03/18/2018 Inactive hydrocodone 10 mg-acetaminophen 325 mg tablet RxNorm: 280770 1-2 Tablet(s) QID as needed for pain MUST LAST 30 DAYS 10/23/2017 11/21/2017 Inactive (Response to an electronic controlled substance refill request - RxReferenceNumber: [id number]) Lipitor 10 mg tablet RxNorm: 838948 1 Tablet(s) PO QHS 10/16/201703/2018 Inactive cyclobenzaprine 10 mg tablet RxNorm: 250717 1 Tablet(s) PO TID as needed for muscle spasm 10/09/2017 12/10/2017 Inactive hydroxyzine HCl 25 mg tablet RxNorm: 114222 1 Tablet(s) PO BID as needed for anxiety 09/20/2017 01/29/2018 Inactive Effexor XR 75 mg capsule,extended release RxNorm: 295132 1 Caps ule(s) PO QD 09/20/2017 01/29/2018 Inactive metoprolol tartrate 100 mg tablet RxNorm: 637191 1 Tablet(s) PO BID 08/20/2017 02/18/2018 Inactive baclofen 20 mg tablet RxNorm: 620198 1 Tablet(s) PO TID as needed for muscle spasm 08/20/2017 01/21/2019 Inactive clonidine HCl 0.1 mg tablet RxNorm: 588593 1 Tablet(s) PO QID 08/2005/16/2018 Inactive Seroquel 25 mg tablet RxNorm: 626152 1 Tablet(s) PO QHS 08/17/2017 Inactive Seroquel 25 mg tablet RxNorm: 372398 1 Tablet(s) PO QHS 08/17/2017 Inactive Diflucan 100 mg tablet RxNorm: 107706 TAKE ONE TABLET BY MOUTH JSOÉ Y 07/25/2017 08/07/2017 Inactive hydrocodone 10 mg-acetaminophen 325 mg tablet RxNorm: 153317 1-2 Tablet(s) QID as needed for pain MUST LAST 30 DAYS 07/19/2017 08/17/2017 Inactive (Response to an electronic controlled substance refill request - RxReferenceNumber: [id number]) clindamycin 300 mg capsule RxNorm: 029982 1 Capsule(s) PO TID 07/1907/28/2017 Inactive clotrimazole-betamethasone 1 %-0.05 % topical cream RxNorm: 524125 Application TOP BID to elbow rash 07/19/2017 06/16/2018 Inactive Singulair 10 mg tablet RxNorm: 843777 Tablet(s) TAKE ONE TABLET BY MOUTH DAILY 07/18/2017 04/13/2018 Inactive triamterene 75 mg-hydrochlorothiazide 50 mg tablet RxNorm: 3 75870 1 Tablet(s) PO QD 07/18/2017 01/14/2018 Inactive Celebrex 200 mg capsule RxNorm: 189208 Capsule(s) TAKE ONE CAPSULE BY MOUTH TWICE A DAY 07/18/2017 10/15/2017 Inactive hydrocodone 10 mg-acetaminophen 325 mg tablet RxNorm: 563611 1-2 Tablet(s) QID as needed for pain MUST LAST 30 DAYS 06/19/2017 07/18/2017 Inactive (Response to an electronic controlled substance refill request - RxReferenceNumber: [id number]) hydrocodone 10 mg-acetaminophen 325 mg tablet RxNorm: 547203 1-2 Tablet(s) QID as needed for pain MUST LAST 30 DAYS 06/19/2017 06/18/2017 Inactive (Response to an electronic controlled substance refill request - RxReferenceNumber: [id number]) baclofen 20 mg tablet RxNorm: 692214 1 Tablet(s) PO TID as needed for muscle spasm 06/18/2017 08/20/2017 Inactive Medrol (Dutsin) 4 mg tablets in a dose pack RxNorm: 149487 Tablet(s) PO As Directed 06/05/2017 07/18/2017 Inactive omeprazole 40 mg capsule,delayed release RxNorm: 998812 1 Capsu le(s) PO QD 04/20/2017 10/16/2017 Inactive Premarin 1.25 mg tablet RxNorm: 211658 1-2 Tablet(s) PO QD 04/11/20 17 05/15/2018 Inactive duloxetine 60 mg capsule,delayed release RxNorm: 225511 1 Capsu le(s) PO QD 04/11/2017 09/19/2017 Inactive furosemide 40 mg tablet RxNorm: 748439 1 Tablet(s) PO Q AM prn edema--take with potassium 04/11/2017 12/11/2017 Inactive Klor-Con 8 mEq tablet,extended release RxNorm: 911730 1 Tablet( s) PO BID 04/11/2017 01/14/2018 Inactive Lipitor 10 mg tablet RxNorm: 647085 1 Tablet(s) PO QHS 04/11/201702/2018 Inactive amlodipine 5 mg-benazepril 20 mg capsule RxNorm: 648972 1 Capsu le(s) PO QD 04/11/2017 01/29/2018 Inactive allopurinol 300 mg tablet RxNorm: 231715 1 Tablet(s) PO QD 04/11/20 17 01/14/2018 Inactive clonidine HCl 0.1 mg tablet RxNorm: 117641 1 Tablet(s) PO QID 04/0508/19/2017 Inactive baclofen 20 mg tablet RxNorm: 991927 1 Tablet(s) PO TID as needed for muscle spasm 04/02/2017 06/18/2017 Inactive Premarin 1.25 mg tablet RxNorm: 698102 1-2 Tablet(s) PO QD 03/20/20 17 04/10/2017 Inactive hydrocodone 10 mg-acetaminophen 325 mg tablet RxNorm: 558765 1-2 Tablet(s) QID as needed for pain MUST LAST 30 DAYS 03/14/2017 01/21/2019 Inactive (Response to an electronic controlled substance refill request - RxReferenceNumber: [id number]) metoprolol tartrate 100 mg tablet RxNorm: 985050 1 Tablet(s) PO BID 02/12/2017 08/20/2017 Inactive hydrocodone 10 mg-acetaminophen 325 mg tablet RxNorm: 941500 1-2 Tablet(s) QID as needed for pain MUST LAST 30 DAYS 02/08/2017 03/09/2017 Inactive (Response to an electronic controlled substance refill request - RxReferenceNumber: [id number]) metoprolol tartrate 100 mg tablet RxNorm: 768611 TAKE O NE TABLET BY MOUTH TWICE A DAY 01/11/2017 02/12/2017 Inactive metoprolol tartrate 100 mg tablet RxNorm: 469040 1 Tablet(s) PO BID 12/18/2016 12/17/2016 Inactive metoprolol tartrate 100 mg tablet RxNorm: 447317 1 Tablet(s) PO BID 12/18/2016 01/10/2017 Inactive furosemide 40 mg tablet RxNorm: 799805 1 Tablet(s) PO Q AM prn edema--take with potassium 12/13/2016 02/10/2017 Inactive amitriptyline 100 mg tablet RxNorm: 427504 1 Tablet(s) PO QHS 11/2812/12/2016 Inactive baclofen 20 mg tablet RxNorm: 604275 1 Tablet(s) PO TID as needed for muscle spasm 11/14/2016 04/01/2017 Inactive triamterene 75 mg-hydrochlorothiazide 50 mg tablet RxNorm: 3 88789 1 Tablet(s) PO QD 11/14/2016 11/13/2016 Inactive metolazone 2.5 mg tablet RxNorm: 967902 TAKE ONE TABLET BY MOUTH DAILY NEEDED FOR EDEMA 11/14/2016 12/12/2016 Inactive triamterene 75 mg-hydrochlorothiazide 50 mg tablet RxNorm: 3 21007 1 Tablet(s) PO QD 11/14/2016 07/18/2017 Inactive amitriptyline 50 mg tablet RxNorm: 894676 TAKE ONE TABL ET BY MOUTH AT BEDTIME NEEDED FOR SLEEP 11/14/2016 11/27/2016 Inactive Cymbalta 60 mg capsule,delayed release RxNorm: 634054 1 Capsule (s) PO QHS 11/14/2016 12/12/2016 Inactive clonidine HCl 0.1 mg tablet RxNorm: 905308 1 Tablet(s) PO QID 11/1304/04/2017 Inactive amitriptyline 50 mg tablet RxNorm: 010072 1 Tablet(s) P O QHS as needed for sleep 11/01/2016 11/27/2016 Inactive duloxetine 60 mg capsule,delayed release RxNorm: 026007 TAKE ONE CAPSULE BY MOUTH DAILY 10/20/2016 01/17/2017 Inactive allopurinol 300 mg tablet RxNorm: 403517 TAKE ONE TABLET BY LOPEZ TH DAILY 10/20/2016 01/16/2017 Inactive Lyrica 75 mg capsule RxNorm: 959493 TAKE ONE CAPSULE BY MOUTH EVERY NIGHT AT BEDTIME 10/20/2016 12/10/2016 Inactive Klor-Con 8 mEq tablet,extended release RxNorm: 844754 T FARRUKH ONE TABLET BY MOUTH TWICE A DAY 10/20/2016 01/17/2017 Inactive Celebrex 200 mg capsule RxNorm: 188425 TAKE ONE CAPSULE BY MOUT H TWICE A DAY 10/20/2016 07/18/2017 Inactive Bystolic 10 mg tablet RxNorm: 560451 TAKE ONE TABLET BY MOUTH EVERY NIGHT AT BEDTIME 10/20/2016 12/17/2016 Inactive amlodipine 5 mg-benazepril 20 mg capsule RxNorm: 689385 TAKE ONE CAPSULE BY MOUTH EVERY NIGHT AT BEDTIME -- TO REPLACE AMLODOPINE 10/20/20162016 Inactive Lipitor 10 mg tablet RxNorm: 838582 TAKE ONE TABLET BY MOUTH EVERY NIGHT AT BEDTIME 10/20/2016 01/17/2017 Inactive alprazolam 0.5 mg tablet RxNorm: 436136 3 Tablet(s) PO QHS as needed for sleep/anxiety 09/20/2016 10/31/2016 Inactive Tamiflu 75 mg capsule RxNorm: 671468 1 Capsule(s) PO QD 09/19/2016 Inactive Lyrica 75 mg capsule RxNorm: 306265 1 Capsule(s) PO QHS 09/19/2016 Inactive prednisone 20 mg tablet RxNorm: 508542 1 Tablet(s) PO QD 08/10/2016 1 10/17/2015 Inactive doxycycline hyclate 100 mg capsule RxNorm: 9659121 1 Capsule(s) PO BID 08/10/2016 08/19/2016 Inactive Medrol (Dustin) 4 mg tablets in a dose pack RxNorm: 362197 Tablet(s) PO As Directed 07/31/2016 08/22/2016 Inactive Singulair 10 mg tablet RxNorm: 348265 TAKE ONE TABLET BY MOUTH JOSÉ Y 07/27/2016 07/18/2017 Inactive hydrocodone 10 mg-acetaminophen 325 mg tablet RxNorm: 071976 1-2 Tablet(s) QID as needed for pain MUST LAST 30 DAYS 07/26/2016 08/24/2016 Inactive (Response to an electronic controlled substance refill request - RxReferenceNumber: [id number]) alprazolam 0.5 mg tablet RxNorm: 412397 3 Tablet(s) PO QHS as needed for anxiety or sleep 07/26/2016 09/20/2016 Inactive clindamycin 300 mg capsule RxNorm: 674088 1 Capsule(s) PO TID 07/2007/29/2016 Inactive Diflucan 100 mg tablet RxNorm: 475940 1 Tablet(s) PO QD 07/20/2016 Inactive Levaquin 500 mg tablet RxNorm: 437677 1 Tablet(s) PO QD 07/17/2016 Inactive Levaquin 500 mg tablet RxNorm: 448493 1 Tablet(s) PO QD 07/10/2016 Inactive Levaquin 500 mg tablet RxNorm: 665154 1 Tablet(s) PO QD 07/10/2016 Inactive mupirocin 2 % topical ointment RxNorm: 582270 TOP Apply topically to affected areas twice daily 07/06/2016 09/18/2016 Inactive Singulair 10 mg tablet RxNorm: 729757 TAKE ONE TABLET BY MOUTH JOSÉ Y 06/21/2016 01/21/2019 Inactive alprazolam 0.5 mg tablet RxNorm: 845979 TAKE THREE TABL ETS BY MOUTH AT BEDTIME NEEDED FOR SLEEP OR STRESS 05/22/2016 06/20/2016 Inactive triamterene 75 mg-hydrochlorothiazide 50 mg tablet RxNorm: 3 68794 1 Tablet(s) PO QD 04/26/2016 01/12/2020 Inactive Premarin 1.25 mg tablet RxNorm: 214542 1-2 Tablet(s) PO QD 04/26/20 16 03/20/2017 Inactive Klor-Con 8 mEq tablet,extended release RxNorm: 173088 1 Tablet( s) PO BID 04/26/2016 10/19/2016 Inactive Celebrex 200 mg capsule RxNorm: 433118 1 Capsule(s) PO BID TAKE ONE CAPSULE BY MOUTH EVERY DAY 04/26/2016 10/19/2016 Inactive Lipitor 10 mg tablet RxNorm: 197651 1 Tablet(s) PO QHS 04/26/201605/2017 Inactive allopurinol 300 mg tablet RxNorm: 510785 1 Tablet(s) PO QD TAKE ONE TABLET BY MOUTH EVERY DAY 04/26/2016 10/19/2016 Inactive amlodipine 5 mg-benazepril 20 mg capsule RxNorm: 485285 1 Capsule(s) PO QHS replaces amlodopine 04/26/2016 10/19/2016 Inactive duloxetine 60 mg capsule,delayed release RxNorm: 497451 1 Capsu le(s) PO QD 04/26/2016 10/19/2016 Inactive Bystolic 10 mg tablet RxNorm: 583467 1 Tablet(s) PO QHS 04/26/2016 Inactive Singulair 10 mg tablet RxNorm: 027671 1 Tablet(s) PO QD TAKE ONE TABLET BY MOUTH DAILY 04/26/2016 06/20/2016 Inactive clonidine HCl 0.1 mg tablet RxNorm: 205959 1 Tablet(s) PO QID 04/2610/22/2016 Inactive hydrocodone 10 mg-acetaminophen 325 mg tablet RxNorm: 223894 1-2 Tablet(s) QID as needed for pain TAKE ONE TO TWO TABLETS BY MOUTH FOUR TIMES A DAY . MUST LAST 30 DAYS 03/31/2016 04/29/2016 Inactive (Response to an electronic controlled substance refill request - RxReferenceNumber: [id number]) Klor-Con 8 mEq tablet,extended release RxNorm: 922857 T FARRUKH ONE TABLET BY MOUTH TWICE A DAY 03/24/2016 09/29/2019 Inactive prednisone 20 mg tablet RxNorm: 859256 1 Tablet(s) PO QD 03/09/2016 0 03/08/2016 Inactive prednisone 20 mg tablet RxNorm: 505263 1 Tablet(s) PO QD 03/09/2016 0 03/13/2016 Inactive alprazolam 0.5 mg tablet RxNorm: 796925 3 Tablet(s) PO QHS as needed for sleep/stress 03/02/2016 01/21/2019 Inactive mupirocin 2 % topical ointment RxNorm: 628973 TOP twice daily to affected areas of face and neck 02/21/2016 04/25/2016 Inactive clonidine HCl 0.1 mg tablet RxNorm: 740767 TAKE ONE TAB LET BY MOUTH FOUR TIMES A DAY 02/15/2016 09/29/2019 Inactive clonidine HCl 0.1 mg tablet RxNorm: 429632 1 Tablet(s) PO QID 02/1404/25/2016 Inactive Premarin 1.25 mg tablet RxNorm: 182578 1-2 Tablet(s) PO QD 02/15/20 16 03/15/2016 Inactive Klor-Con 8 mEq tablet,extended release RxNorm: 278063 T FARRUKH ONE TABLET BY MOUTH TWICE A DAY 02/15/2016 03/15/2016 Inactive potassium chloride ER 20 mEq tablet,extended release(part/cr yst) RxNorm: 127249 2 Tablet(s) PO BID 02/15/2016 03/15/2016 Inactive Macrobid 100 mg capsule RxNorm: 563172 1 Capsule(s) PO BID 01/24/20 16 01/30/2016 Inactive prednisone 20 mg tablet RxNorm: 446165 Take 3tabs PO QD x 2 days, then 2 tabs PO QD x 2 days, then 1 tab PO QD x 2 days, then 1/2 tab PO QDy x 2 days 12/23/2015 04/25/2016 Inactive Klor-Con 8 mEq tablet,extended release RxNorm: 612958 T FARRUKH ONE TABLET BY MOUTH TWICE A DAY 12/20/2015 02/14/2016 Inactive alprazolam 1 mg tablet RxNorm: 810768 1 1/2 Tablet(s) PO QHS 201501/23/2016 Inactive nystatin 100,000 unit/gram topical cream RxNorm: 357652 APPLY TO AFFECTED AREA(S) TWO TIMES A DAY 11/30/2015 12/14/2015 Inactive Singulair 10 mg tablet RxNorm: 806800 TAKE ONE TABLET BY MOUTH JOSÉ Y 11/18/2015 04/25/2016 Inactive allopurinol 300 mg tablet RxNorm: 344068 1 Tablet(s) PO QD TAKE ONE TABLET BY MOUTH EVERY DAY 10/26/2015 04/22/2016 Inactive Singulair 10 mg tablet RxNorm: 341459 TAKE ONE TABLET BY MOUTH JOSÉ Y 10/26/2015 11/17/2015 Inactive duloxetine 60 mg capsule,delayed release RxNorm: 245812 1 Capsu le(s) PO QD 10/26/2015 04/22/2016 Inactive triamterene 75 mg-hydrochlorothiazide 50 mg tablet RxNorm: 3 09022 1 Tablet(s) PO QD 10/26/2015 11/14/2016 Inactive potassium chloride ER 20 mEq tablet,extended release(part/cr yst) RxNorm: 315253 2 Tablet(s) PO BID 10/26/2015 02/14/2016 Inactive Lipitor 10 mg tablet RxNorm: 492434 1 Tablet(s) PO QHS 10/26/2015 Inactive amlodipine 5 mg-benazepril 20 mg capsule RxNorm: 350622 1 Capsule(s) PO QHS replaces amlodopine 10/26/2015 04/22/2016 Inactive Bystolic 10 mg tablet RxNorm: 654672 1 Tablet(s) PO QHS 10/26/2015 Inactive amlodipine 5 mg-benazepril 20 mg capsule RxNorm: 205340 1 Capsule(s) PO QHS replaces amlodopine 10/06/2015 10/25/2015 Inactive amlodipine 5 mg tablet RxNorm: 102167 1 Tablet(s) PO QHS 09/30/2015 0 04/25/2016 Inactive metolazone 2.5 mg tablet RxNorm: 205663 TAKE ONE TABLET BY MOUTH DAILY NEEDED FOR EDEMA 09/30/2015 01/21/2019 Inactive duloxetine 60 mg capsule,delayed release RxNorm: 934336 1 Capsu le(s) PO QD 09/30/2015 10/25/2015 Inactive cephalexin 500 mg capsule RxNorm: 696731 1 Capsule(s) PO BID 201509/23/2015 Inactive mupirocin 2 % topical ointment RxNorm: 225731 TOP twice daily to affected areas of face and neck 09/14/2015 02/20/2016 Inactive baclofen 20 mg tablet RxNorm: 451319 1 Tablet(s) PO TID as needed for muscle spasm 09/01/2015 11/14/2016 Inactive clonidine HCl 0.1 mg tablet RxNorm: 831637 1 Tablet(s) PO QID 09/0102/14/2016 Inactive alprazolam 1 mg tablet RxNorm: 990077 1 1/2 Tablet(s) PO QHS 201409/09/2015 Inactive baclofen 20 mg tablet RxNorm: 914742 1 Tablet(s) PO TID as needed for muscle spasm 07/23/2015 09/01/2015 Inactive omeprazole 40 mg capsule,delayed release RxNorm: 022909 1 Capsu le(s) PO QD 07/23/2015 04/25/2016 Inactive alprazolam 1 mg tablet RxNorm: 971465 1 1/2 Tablet(s) PO QHS 201408/10/2015 Inactive Bystolic 10 mg tablet RxNorm: 342967 1 Tablet(s) PO BID 06/24/2015 Inactive allopurinol 300 mg tablet RxNorm: 583270 1 Tablet(s) PO QD TAKE ONE TABLET BY MOUTH EVERY DAY 06/23/2015 10/20/2015 Inactive alprazolam 1 mg tablet RxNorm: 846136 1 1/2 Tablet(s) PO QHS 201407/06/2015 Inactive clonidine HCl 0.1 mg tablet RxNorm: 083732 1 Tablet(s) PO QID 06/0209/01/2015 Inactive clonidine HCl 0.1 mg tablet RxNorm: 764147 1 Tablet(s) PO QID 06/0206/01/2015 Inactive Cymbalta 60 mg capsule,delayed release RxNorm: 755559 1 Capsule (s) PO QHS 06/02/2015 08/30/2015 Inactive Cymbalta 60 mg capsule,delayed release RxNorm: 429060 1 Capsule (s) PO QHS 06/02/2015 06/01/2015 Inactive clonidine HCl 0.1 mg tablet RxNorm: 913023 1 Tablet(s) PO TID 05/3106/01/2015 Inactive replaces 0.2mg dose metolazone 2.5 mg tablet RxNorm: 388910 TAKE ONE TABLET BY MOUTH DAILY NEEDED FOR EDEMA 05/21/2015 06/19/2015 Inactive Singulair 10 mg tablet RxNorm: 738294 TAKE ONE TABLET BY MOUTH JOSÉ Y 05/21/2015 10/17/2015 Inactive Cymbalta 30 mg capsule,delayed release RxNorm: 239672 1 Capsule (s) PO QHS 05/20/2015 11/14/2016 Inactive betamethasone valerate 0.1 % topical cream RxNorm: 456782 Appli cation TOP BID 05/10/2015 04/25/2016 Inactive Bactroban 2 % topical ointment RxNorm: 572552 Application TOP BID 0 05/10/2015 06/20/2015 Inactive baclofen 20 mg tablet RxNorm: 469818 1 Tablet(s) PO TID as needed 0 04/26/2015 07/23/2015 Inactive Lipitor 10 mg tablet RxNorm: 718697 1 Tablet(s) PO QHS 04/26/201508/2016 Inactive clonidine HCl 0.1 mg tablet RxNorm: 981267 1 Tablet(s) PO TID 04/2605/30/2015 Inactive replaces 0.2mg dose Klor-Con 8 mEq tablet,extended release RxNorm: 309873 1 Tablet( s) PO BID 04/26/2015 04/25/2016 Inactive metolazone 2.5 mg tablet RxNorm: 788476 1 Tablet(s) PO QD as ne eded for edema 04/26/2015 04/25/2015 Inactive triamterene 75 mg-hydrochlorothiazide 50 mg tablet RxNorm: 3 17407 1 Tablet(s) PO QD 04/26/2015 10/22/2015 Inactive Premarin 1.25 mg tablet RxNorm: 439031 1-2 Tablet(s) PO QD 04/26/20 15 10/22/2015 Inactive Bystolic 10 mg tablet RxNorm: 927757 1 Tablet(s) PO QAM TAKE ONE TABLET BY MOUTH EVERY MORNING 04/23/2015 06/23/2015 Inactive clonidine HCl 0.1 mg tablet RxNorm: 750278 1 Tablet(s) PO TID 03/2304/25/2015 Inactive replaces 0.2mg dose nystatin 100,000 unit/gram topical cream RxNorm: 186883 Applica tion TOP BID 03/23/2015 06/20/2015 Inactive baclofen 20 mg tablet RxNorm: 534331 1 Tablet(s) PO TID as needed 0 03/23/2015 04/25/2015 Inactive Premarin 1.25 mg tablet RxNorm: 492090 1-2 Tablet(s) PO QD 03/23/20 15 04/25/2015 Inactive Klor-Con 8 mEq tablet,extended release RxNorm: 883163 1 Tablet( s) PO BID 03/23/2015 04/25/2015 Inactive cefdinir 300 mg capsule RxNorm: 017247 2 Capsule(s) PO QD 03/16/2015 03/25/2015 Inactive baclofen 20 mg tablet RxNorm: 235347 1 Tablet(s) PO TID as needed 0 03/02/2015 03/22/2015 Inactive allopurinol 300 mg tablet RxNorm: 766329 1 Tablet(s) PO QD TAKE ONE TABLET BY MOUTH EVERY DAY 02/22/2015 05/22/2015 Inactive Klor-Con M20 mEq tablet,extended release RxNorm: 930284 2 Tablet(s) PO BID to use with lasix 02/22/2015 06/20/2015 Inactive clonidine HCl 0.1 mg tablet RxNorm: 295731 1 Tablet(s) PO TID 02/1903/22/2015 Inactive replaces 0.2mg dose Lipitor 10 mg tablet RxNorm: 755100 1 Tablet(s) PO QHS 01/20/201506/2015 Inactive Lipitor 10 mg tablet RxNorm: 823897 1 Tablet(s) PO QHS 01/20/2015 Inactive Singulair 10 mg tablet RxNorm: 470751 1 Tablet(s) PO QD TAKE ONE TABLET BY MOUTH EVERY DAY 11/20/2014 05/18/2015 Inactive Lipitor 10 mg tablet RxNorm: 896699 1 Tablet(s) PO QHS 11/20/201408/2015 Inactive allopurinol 300 mg tablet RxNorm: 919703 1 Tablet(s) PO QD TAKE ONE TABLET BY MOUTH EVERY DAY 11/20/2014 02/16/2015 Inactive Bystolic 10 mg tablet RxNorm: 295539 1 Tablet(s) PO QAM TAKE ONE TABLET BY MOUTH EVERY MORNING 11/20/2014 04/22/2015 Inactive Klor-Con 8 mEq tablet,extended release RxNorm: 288857 1 Tablet( s) PO BID 11/20/2014 02/17/2015 Inactive baclofen 20 mg tablet RxNorm: 430596 1 Tablet(s) PO TID as needed 0 11/20/2014 01/21/2019 Inactive baclofen 20 mg tablet RxNorm: 097981 1 Tablet(s) PO TID as needed 0 10/27/2014 11/19/2014 Inactive baclofen 20 mg tablet RxNorm: 947791 1 Tablet(s) PO TID as needed 0 10/26/2014 03/01/2015 Inactive allopurinol 300 mg tablet RxNorm: 114834 1 Tablet(s) PO QD TAKE ONE TABLET BY MOUTH EVERY DAY 10/26/2014 11/20/2014 Inactive Bystolic 10 mg tablet RxNorm: 278464 1 Tablet(s) PO QAM TAKE ONE TABLET BY MOUTH EVERY MORNING 10/26/2014 11/20/2014 Inactive clonidine HCl 0.1 mg tablet RxNorm: 612783 1 Tablet(s) PO TID 09/2805/27/2019 Inactive replaces 0.2mg dose clonidine HCl 0.1 mg tablet RxNorm: 410774 1 Tablet(s) PO TID 09/2802/18/2015 Inactive replaces 0.2mg dose baclofen 20 mg tablet RxNorm: 641097 1 Tablet(s) PO TID as needed 1 11/01/2013 08/30/2014 Inactive Lipitor 10 mg tablet RxNorm: 809040 1 Tablet(s) PO QHS 08/31/2014 Inactive baclofen 20 mg tablet RxNorm: 659173 1 Tablet(s) PO TID as needed 1 11/01/2013 10/26/2014 Inactive triamterene 75 mg-hydrochlorothiazide 50 mg tablet RxNorm: 3 60535 1 Tablet(s) PO QD 08/31/2014 02/26/2015 Inactive Klor-Con 8 mEq tablet,extended release RxNorm: 309644 1 Tablet( s) PO BID 08/31/2014 11/20/2014 Inactive baclofen 20 mg tablet RxNorm: 904607 1 Tablet(s) PO TID as needed 1 09/30/2013 10/25/2014 Inactive baclofen 20 mg tablet RxNorm: 607551 1 Tablet(s) PO TID as needed 1 09/30/2013 08/31/2014 Inactive omeprazole 40 mg capsule,delayed release RxNorm: 277178 1 Capsu le(s) PO QD 07/21/2014 07/23/2015 Inactive Flonase 50 mcg/actuation nasal spray,suspension RxNorm: 8963 23 1 [place] NASAL BID 07/15/2014 04/09/2017 Inactive hydrocodone 10 mg-acetaminophen 325 mg tablet RxNorm: 997289 1-2 Tablet(s) QID as needed for pain TAKE ONE TO TWO TABLETS BY MOUTH FOUR TIMES A DAY . MUST LAST 30 DAYS 06/30/2014 07/27/2014 Inactive (Response to an electronic controlled substance refill request - RxReferenceNumber: [id number]) baclofen 20 mg tablet RxNorm: 968666 1 Tablet(s) PO TID as needed 1 07/31/2014 Inactive Singulair 10 mg tablet RxNorm: 606125 1 Tablet(s) PO QD TAKE ONE TABLET BY MOUTH EVERY DAY 05/25/2014 11/20/2014 Inactive Bystolic 10 mg tablet RxNorm: 130035 TAKE ONE TABLET BY MOUTH E VERY MORNING 05/25/2014 09/21/2014 Inactive allopurinol 300 mg tablet RxNorm: 119226 1 Tablet(s) PO QD TAKE ONE TABLET BY MOUTH EVERY DAY 05/25/2014 10/21/2014 Inactive baclofen 20 mg tablet RxNorm: 423391 1 Tablet(s) PO TID as needed 0 05/25/2014 06/29/2014 Inactive allopurinol 300 mg tablet RxNorm: 406072 TAKE ONE TABLET BY LOPEZ TH EVERY DAY 05/25/2014 09/21/2014 Inactive Singulair 10 mg tablet RxNorm: 807318 1 Tablet(s) PO QD TAKE ONE TABLET BY MOUTH EVERY DAY 05/25/2014 05/24/2014 Inactive Bystolic 10 mg tablet RxNorm: 215581 1 Tablet(s) PO QAM TAKE ONE TABLET BY MOUTH EVERY MORNING 05/25/2014 10/21/2014 Inactive metolazone 2.5 mg tablet RxNorm: 933826 1 Tablet(s) PO QD as ne eded for edema 05/18/2014 04/25/2015 Inactive Lasix 40 mg tablet RxNorm: 956151 1 Tablet(s) PO RAZA ramirez take potassium supplementation with this medication 05/14/2014 05/17/2014 Inactive hydrocodone 10 mg-acetaminophen 325 mg tablet RxNorm: 041867 1-2 Tablet(s) QID as needed for pain TAKE ONE TO TWO TABLETS BY MOUTH FOUR TIMES A DAY . MUST LAST 30 DAYS 05/07/2014 06/05/2014 Inactive (Response to an electronic controlled substance refill request - RxReferenceNumber: [id number]) alprazolam 0.5 mg tablet RxNorm: 075034 TAKE ONE TABLET BY MOUTH TWICE A DAY , MUST LAST 30 DAYS 05/07/2014 05/22/2016 Inactive (Response to a n electronic controlled substance refill request - RxReferenceNumber: [id number]) diclofenac sodium 75 mg tablet,delayed release RxNorm: 80219 6 1 Tablet(s) PO BID for pain 04/24/2014 07/20/2014 Inactive Celebrex 200 mg capsule RxNorm: 755374 TAKE ONE CAPSULE BY MOUT H EVERY DAY 04/24/2014 07/20/2014 Inactive alprazolam 0.5 mg tablet RxNorm: 942505 TAKE ONE TABLET BY MOUTH TWICE A DAY , MUST LAST 30 DAYS 03/24/2014 04/22/2014 Inactive (Response to a n electronic controlled substance refill request - RxReferenceNumber: [id number]) diclofenac sodium 75 mg tablet,delayed release RxNorm: 49748 6 1 Tablet(s) PO BID for pain 03/24/2014 04/24/2014 Inactive clonidine HCl 0.1 mg tablet RxNorm: 110962 1 Tablet(s) PO TID 03/2409/28/2014 Inactive replaces 0.2mg dose Klor-Con 8 mEq tablet,extended release RxNorm: 105652 1 Tablet( s) PO BID 02/26/2014 08/31/2014 Inactive diclofenac sodium 75 mg tablet,delayed release RxNorm: 59999 6 1 Tablet(s) PO BID for pain 02/25/2014 03/24/2014 Inactive hydrocodone 10 mg-acetaminophen 325 mg tablet RxNorm: 057000 1-2 Tablet(s) QID as needed for pain TAKE ONE TO TWO TABLETS BY MOUTH FOUR TIMES A DAY . MUST LAST 30 DAYS 02/25/2014 03/26/2014 Inactive (Response to an electronic controlled substance refill request - RxReferenceNumber: [id number]) alprazolam 0.5 mg tablet RxNorm: 616734 Tablet(s) PO BI D as needed for anxiety TAKE ONE TABLET BY MOUTH TWICE A DAY , MUST LAST 30 DAYS 02/25/2014 Inactive (Response to an electronic controlled [place] b[place] refill request - RxReferenceNumber: [id number]) [AttnRPh: Saving apply/adjudicate RxGRP:SG20 RxBIN:[id number] RxPCN: ID#:[id number]] alprazolam 0.5 mg tablet RxNorm: 006994 Tablet(s) TAKE ONE TABLET BY MOUTH TWICE A DAY , MUST LAST 30 DAYS 01/27/2014 02/24/2014 Inactive (Respo nse to an electronic controlled substance refill request - RxReferenceNumber: [id number]) [AttnRPh: Saving apply/adjudicate RxGRP:SG20 RxBIN:[id number] RxPCN: ID#:[id number]] hydrocodone 10 mg-acetaminophen 325 mg tablet RxNorm: 246527 1-2 Tablet(s) QID as needed for pain TAKE ONE TO TWO TABLETS BY MOUTH FOUR TIMES A DAY . MUST LAST 30 DAYS 01/27/2014 02/24/2014 Inactive (Response to an electronic controlled substance refill request - RxReferenceNumber: [id number]) alprazolam 0.5 mg tablet RxNorm: 817943 TAKE ONE TABLET BY MOUTH TWICE A DAY , MUST LAST 30 DAYS 01/27/2014 01/26/2014 Inactive (Response to a n electronic controlled substance refill request - RxReferenceNumber: [id number]) Premarin 1.25 mg tablet RxNorm: 344345 1-2 Tablet(s) PO QD 01/28/20 14 07/25/2014 Inactive alprazolam 0.5 mg tablet RxNorm: 209243 TAKE ONE TABLET BY MOUTH TWICE A DAY , MUST LAST 30 DAYS 01/27/2014 01/27/2014 Inactive (Response to a n electronic controlled substance refill request - RxReferenceNumber: [id number]) hydrocodone 10 mg-acetaminophen 325 mg tablet RxNorm: 041264 TAKE ONE TO TWO TABLETS BY MOUTH FOUR TIMES A DAY . MUST LAST 30 DAYS 01/27/20142013 Inactive (Response to an electronic controlled [place] bstance refill request - RxReferenceNumber: [id number]) Celebrex 200 mg capsule RxNorm: 147289 1 Capsule(s) PO QD TAKE ONE CAPSULE BY MOUTH EVERY DAY 12/29/2013 04/27/2014 Inactive hydrocodone 10 mg-acetaminophen 325 mg tablet RxNorm: 500268 1-2 Tablet(s) PO QID as needed for severe pain 12/29/2013 01/27/2014 Inactive allopurinol 300 mg tablet RxNorm: 683409 1 Tablet(s) PO QD TAKE ONE TABLET BY MOUTH EVERY DAY 12/29/2013 05/24/2014 Inactive alprazolam 0.5 mg tablet RxNorm: 280084 TAKE ONE TABLET BY MOUTH TWICE A DAY , MUST LAST 30 DAYS 12/29/2013 01/27/2014 Inactive (Response to a n electronic controlled substance refill request - RxReferenceNumber: [id number]) Celebrex 200 mg capsule RxNorm: 998925 1 Capsule(s) PO QD TAKE ONE CAPSULE BY MOUTH EVERY DAY 12/29/2013 12/29/2013 Inactive Bystolic 10 mg tablet RxNorm: 587780 1 Tablet(s) PO QAM TAKE ONE TABLET BY MOUTH EVERY MORNING 12/29/2013 05/24/2014 Inactive Bystolic 10 mg tablet RxNorm: 305420 1 Tablet(s) PO QAM TAKE ONE TABLET BY MOUTH EVERY MORNING 12/29/2013 12/29/2013 Inactive Singulair 10 mg tablet RxNorm: 828501 1 Tablet(s) PO QD TAKE ONE TABLET BY MOUTH EVERY DAY 12/29/2013 05/25/2014 Inactive hydrocodone 10 mg-acetaminophen 325 mg tablet RxNorm: 257773 TAKE ONE TO TWO TABLETS BY MOUTH FOUR TIMES A DAY . MUST LAST 30 DAYS 12/29/20132013 Inactive (Response to an electronic controlled [place] b[place] refill request - RxReferenceNumber: [id number]) Trazadone 75mg Tablet RxNorm: 1 Tablet(s) PO QHS as needed 03/23/2014 Inactive Trazadone 75mg Tablet RxNorm: 1 Tablet(s) PO QHS 12/24/20132014 Inactive Soma 350 mg tablet RxNorm: 860765 Tablet(s) PO TAKE ON E TABLET BY MOUTH THREE TIMES A DAY NEEDED FOR MUSCLE SPASMS. THIS MUST LAST 30 DAYS BETWEEN REFILLS. 12/10/2013 12/22/2013 Inactive (Appended: Cont rolled substance eRx refill - RxReferenceNumber: [id number]) diclofenac sodium 75 mg tablet,delayed release RxNorm: 55137 6 1 Tablet(s) PO BID for pain 12/10/2013 02/24/2014 Inactive allopurinol 300 mg tablet RxNorm: 980310 1 Tablet(s) PO QD 11/20/19 14 12/29/2013 Inactive alprazolam 0.5 mg tablet RxNorm: 588942 2 Tablet(s) PO BID 11/13/19 14 12/29/2013 Inactive prn clonidine 0.1 mg tablet RxNorm: 293464 1 Tablet(s) PO TID 11/12/2013 02/09/2014 Inactive replaces 0.2mg dose Klor-Con M20 mEq tablet,extended release RxNorm: 590317 2 Tablet(s) PO BID to use with lasix 11/12/2013 05/10/2014 Inactive Singulair 10 mg tablet RxNorm: 177852 1 Tablet(s) PO QD 11/12/2013 Inactive hydrocodone 10 mg-acetaminophen 325 mg tablet RxNorm: 558481 1-2 Tablet(s) PO QID as needed for severe pain 11/12/2013 12/28/2013 Inactive Bystolic 10 mg tablet RxNorm: 277303 1 Tablet(s) PO QAM 11/12/2013 Inactive Soma 350 mg tablet RxNorm: 044584 Tablet(s) PO TAKE ON E TABLET BY MOUTH THREE TIMES A DAY NEEDED FOR MUSCLE SPASMS. THIS MUST LAST 30 DAYS BETWEEN REFILLS. 10/13/2013 12/10/2013 Inactive (Appended: Cont rolled substance eRx refill - RxReferenceNumber: [id number]) hydrocodone 10 mg-acetaminophen 325 mg tablet RxNorm: 556627 1-2 Tablet(s) PO QID as needed for severe pain 10/03/2013 11/11/2013 Inactive diclofenac sodium 75 mg tablet,delayed release RxNorm: 18442 8 1 Tablet(s) PO BID for pain 09/11/2013 12/10/2013 Inactive alprazolam 0.5 mg tablet RxNorm: 368378 1 Tablet(s) PO BID May refill on 04/26/13 09/01/2013 10/30/2013 Inactive prn hydrocodone 10 mg-acetaminophen 325 mg tablet RxNorm: 399089 1-2 Tablet(s) PO QID as needed for severe pain 09/01/2013 10/02/2013 Inactive triamterene 75 mg-hydrochlorothiazide 50 mg tablet RxNorm: 3 33380 1 Tablet(s) PO QD 08/04/2013 08/31/2014 Inactive cyclobenzaprine 10 mg tablet RxNorm: 768971 1 Tablet(s) PO TID prn spasm 08/04/2013 08/13/2013 Inactive clonidine 0.1 mg tablet RxNorm: 907609 1 Tablet(s) PO TID 08/04/2013 11/11/2013 Inactive replaces 0.2mg dose cyclobenzaprine 10 mg tablet RxNorm: 083818 1 Tablet(s) PO TID prn spasm 07/23/2013 08/01/2013 Inactive hydrocodone 10 mg-acetaminophen 325 mg tablet RxNorm: 012864 2 1-2 Tablet(s) PO QID as needed for severe pain 06/09/2013 08/07/2013 Inactive Singulair 10 mg tablet RxNorm: 467799 1 Tablet(s) PO QD 05/29/2013 Inactive Klor-Con 8 mEq tablet,extended release RxNorm: 846471 1 Tablet( s) PO BID 05/29/2013 02/26/2014 Inactive allopurinol 300 mg tablet RxNorm: 201612 1 Tablet(s) PO QD 05/29/2011/19/2013 Inactive Bystolic 10 mg tablet RxNorm: 300509 1 Tablet(s) PO QAM take one daily in the morning. 05/29/2013 11/11/2013 Inactive scopolamine 1.5 mg 72 hr Transderm Patch RxNorm: 535207 Application TD Q72H for motion sickness 05/26/2013 07/22/2013 Inactive Soma 350 mg tablet RxNorm: 462829 1 Tablet(s) PO TID as needed for spasm 05/19/2013 10/13/2013 Inactive diclofenac sodium 75 mg tablet,delayed release RxNorm: 84061 8 1 Tablet(s) PO BID for pain 05/14/2013 07/22/2013 Inactive allopurinol 300 mg tablet RxNorm: 058346 1 Tablet(s) PO QD 04/25/2005/28/2013 Inactive alprazolam 0.5 mg tablet RxNorm: 719419 1 Tablet(s) PO BID May refill on 04/26/13 04/25/2013 06/23/2013 Inactive prn Celebrex 200 mg capsule RxNorm: 020937 1 Capsule(s) PO QD 04/16/2013 12/29/2013 Inactive alprazolam 0.5 mg tablet RxNorm: 389638 1 Tablet(s) PO BID May refill on 04/26/13 04/16/2013 04/24/2013 Inactive prn Soma 350 mg tablet RxNorm: 852866 1 Tablet(s) PO TID as needed for spasm 04/16/2013 No Stop Date Active Lasix 40 mg tablet RxNorm: 075234 1 Tablet(s) PO QAM s hould take potassium supplementation with this medication 04/16/2013 06/14/2013 Inactive clonidine 0.1 mg tablet RxNorm: 244630 1 Tablet(s) PO TID 04/16/2013 08/03/2013 Inactive replaces 0.2mg dose prednisone 20 mg tablet RxNorm: 923752 1 Tablet(s) PO BID 04/16/2013 04/20/2013 Inactive diclofenac sodium 75 mg tablet,delayed release RxNorm: 23217 8 1 Tablet(s) PO BID for pain 04/14/2013 05/13/2013 Inactive hydrocodone 10 mg-acetaminophen 325 mg tablet RxNorm: 059419 2 1-2 Tablet(s) PO QID as needed for severe pain 04/14/2013 No Stop Date Active Lasix 40 mg tablet RxNorm: 645342 1 Tablet(s) PO QAM s hould take potassium supplementation with this medication 03/31/2013 04/15/2013 Inactive Celebrex 200 mg capsule RxNorm: 746905 1 Capsule(s) PO QD 03/31/2013 04/15/2013 Inactive alprazolam 0.5 mg tablet RxNorm: 219190 1 Tablet(s) PO BID 03/28/20 13 04/15/2013 Inactive prn hydrocodone 10 mg-acetaminophen 325 mg tablet RxNorm: 236019 2 1-2 Tablet(s) PO QID as needed for severe pain 03/10/2013 No Stop Date Active metformin ER 500 mg 24 hr tablet,extended release RxNorm: 86 1018 1 Tablet(s) PO QD 03/06/2013 07/22/2013 Inactive clindamycin 300 mg capsule RxNorm: 283305 2 Capsule(s) PO TID 03/0503/14/2013 Inactive Zaroxolyn 2.5 mg tablet RxNorm: 716498 1 Tablet(s) PO QAM 03/05/2013 05/19/2015 Inactive amlodipine 10 mg tablet RxNorm: 937194 1 Tablet(s) PO QD 03/03/2013 0 05/25/2013 Inactive Norvasc 10 mg tablet RxNorm: 422623 1 Tablet(s) PO QD 02/28/201307/11 Inactive Celebrex 200 mg capsule RxNorm: 844016 1 Capsule(s) PO QD 02/28/2013 03/30/2013 Inactive diclofenac sodium 75 mg tablet,delayed release RxNorm: 44131 8 1 Tablet(s) PO BID for pain 02/14/2013 03/15/2013 Inactive Soma 350 mg tablet RxNorm: 092086 1 Tablet(s) PO TID as needed for spasm 02/14/2013 No Stop Date Active hydrocodone 10 mg-acetaminophen 325 mg tablet RxNorm: 789608 2 1-2 Tablet(s) PO QID as needed for severe pain 02/14/2013 No Stop Date Active Norvasc 10 mg tablet RxNorm: 917717 1 Tablet(s) PO QD 02/10/201302/09 Inactive Celebrex 200 mg capsule RxNorm: 520516 1 Capsule(s) PO QD 01/27/2013 01/26/2013 Inactive Premarin 1.25 mg tablet RxNorm: 360227 1-2 Tablet(s) PO QD 01/28/20 13 06/25/2013 Inactive alprazolam 0.5 mg tablet RxNorm: 474404 1 Tablet(s) PO BID 01/28/20 13 02/25/2013 Inactive prn amlodipine 5 mg tablet RxNorm: 749783 1 Tablet(s) PO QD 01/27/2013 Inactive Celebrex 200 mg capsule RxNorm: 270134 1 Capsule(s) PO QD 01/27/2013 02/27/2013 Inactive gabapentin 600 mg tablet RxNorm: 251649 1 Tablet(s) PO QHS 01/16/20 13 07/22/2013 Inactive Soma 350 mg tablet RxNorm: 349544 1 Tablet(s) PO TID as needed for spasm 01/15/2013 No Stop Date Active hydrocodone 10 mg-acetaminophen 325 mg tablet RxNorm: 480331 2 1-2 Tablet(s) PO QID as needed for severe pain 01/15/2013 No Stop Date Active Soma 350 mg tablet RxNorm: 035908 1 Tablet(s) PO TID as needed for spasm 01/13/2013 No Stop Date Active alprazolam 0.5 mg tablet RxNorm: 005598 1 Tablet(s) PO BID 12/31/19 13 01/26/2013 Inactive prn diclofenac sodium 75 mg tablet,delayed release RxNorm: 82539 8 1 Tablet(s) PO BID for pain 12/09/2012 01/07/2013 Inactive gabapentin 600 mg tablet RxNorm: 458679 1 Tablet(s) PO QHS 12/10/19 13 01/07/2013 Inactive hydrocodone 10 mg-acetaminophen 325 mg tablet RxNorm: 137902 2 1-2 Tablet(s) PO QID as needed for severe pain 12/02/2012 No Stop Date Active Levaquin 750 mg tablet RxNorm: 608034 1 Tablet(s) PO QD 11/21/2012 Inactive Singulair 10 mg tablet RxNorm: 415756 1 Tablet(s) PO QD 11/11/2012 Inactive clonidine 0.2 mg tablet RxNorm: 724997 1 Tablet(s) PO TID 11/11/2012 04/15/2013 Inactive alprazolam 0.5 mg tablet RxNorm: 399066 1 Tablet(s) PO BID 11/12/19 13 12/10/2012 Inactive prn Klor-Con 8 mEq tablet,extended release RxNorm: 479620 1 Tablet( s) PO BID 11/11/2012 03/04/2013 Inactive hydrocodone 10 mg-acetaminophen 325 mg tablet RxNorm: 241606 2 1-2 Tablet(s) PO QID as needed for severe pain 11/06/2012 No Stop Date Active alprazolam 0.5 mg tablet RxNorm: 617071 1 Tablet(s) PO BID 10/15/19 13 11/10/2012 Inactive prn hydrocodone-acetaminophen 10 mg-325 mg tablet RxNorm: 151787 2 1-2 Tablet(s) PO QID as needed for severe pain 10/10/2012 10/09/2012 Inactive allopurinol 300 mg tablet RxNorm: 597570 1 Tablet(s) PO QD 09/20/19 13 12/18/2012 Inactive alprazolam 0.5 mg tablet RxNorm: 925767 1 Tablet(s) PO BID 09/17/19 13 10/14/2012 Inactive prn hydrocodone-acetaminophen 10 mg-325 mg tablet RxNorm: 492109 2 1-2 Tablet(s) PO QID as needed for severe pain 08/22/2012 08/21/2012 Inactive Norvasc 10 mg tablet RxNorm: 021573 1 Tablet(s) PO QD 08/12/201201/10 Inactive Premarin 1.25 mg tablet RxNorm: 344343 1-2 Tablet(s) PO QD 07/30/20 12 12/26/2012 Inactive alprazolam 0.5 mg tablet RxNorm: 654196 1 Tablet(s) PO BID 07/29/20 12 08/27/2012 Inactive prn Klor-Con 8 mEq tablet,extended release RxNorm: 930479 1 Tablet( s) PO BID 07/29/2012 11/10/2012 Inactive hydrocodone-acetaminophen 10 mg-325 mg tablet RxNorm: 477956 2 1-2 Tablet(s) PO QID as needed for severe pain 07/29/2012 No Stop Date Active Premarin 1.25 mg tablet RxNorm: 870720 1-2 Tablet(s) PO QD 07/29/20 12 07/29/2012 Inactive clonidine 0.2 mg tablet RxNorm: 861741 1 Tablet(s) PO TID 07/29/2012 10/28/2012 Inactive ketorolac 10 mg tablet RxNorm: 837932 1 Tablet(s) PO QID prn he adache 07/18/2012 No Stop Date Active hydrocodone-acetaminophen 10 mg-325 mg tablet RxNorm: 142576 2 1-2 Tablet(s) PO QID as needed for severe pain 07/03/2012 No Stop Date Active amlodipine 5 mg tablet RxNorm: 856861 1 Tablet(s) PO QD 07/02/2012 Inactive allopurinol 300 mg tablet RxNorm: 206690 1 Tablet(s) PO QD 07/02/2009/19/2012 Inactive Celebrex 200 mg capsule RxNorm: 689463 1 Capsule(s) PO QD for j oint pain 06/26/2012 10/23/2012 Inactive diclofenac sodium 75 mg tablet,delayed release RxNorm: 53357 8 1 Tablet(s) PO BID for pain 06/19/2012 09/16/2012 Inactive hydrocodone-acetaminophen 10 mg-325 mg tablet RxNorm: 002640 2 1-2 Tablet(s) PO QID as needed for severe pain 06/10/2012 No Stop Date Active alprazolam 0.5 mg tablet RxNorm: 389777 1 Tablet(s) PO BID 06/03/20 12 07/02/2012 Inactive prn ketorolac 10 mg tablet RxNorm: 234642 1 Tablet(s) PO Q8H 05/27/2012 0 01/21/2019 Inactive as needed for headache hydrocodone-acetaminophen 10 mg-325 mg tablet RxNorm: 788612 2 1-2 Tablet(s) PO QID as needed for severe pain 05/15/2012 No Stop Date Active allopurinol 300 mg tablet RxNorm: 906513 1 Tablet(s) PO QD 05/14/20 12 06/12/2012 Inactive allopurinol 300 mg tablet RxNorm: 887263 1 Tablet(s) PO QD 05/14/20 12 05/13/2012 Inactive amlodipine 5 mg tablet RxNorm: 186400 1 Tablet(s) PO QD 05/01/2012 Inactive amlodipine 5 mg Tab RxNorm: 175586 1 Tablet(s) PO QD 05/01/201204/30 Inactive Celebrex 200 mg capsule RxNorm: 647111 1 Capsule(s) PO QD for j oint pain 05/01/2012 06/25/2012 Inactive Singulair 10 mg tablet RxNorm: 246137 1 Tablet(s) PO QD 05/01/2012 Inactive alprazolam 0.5 mg tablet RxNorm: 576210 1 Tablet(s) PO BID 05/01/2005/30/2012 Inactive prn Celebrex 200 mg Cap RxNorm: 163046 1 Capsule(s) PO QD for joint radu n 05/01/2012 04/30/2012 Inactive hydrocodone-acetaminophen 10 mg-325 mg tablet RxNorm: 537826 2 1-2 Tablet(s) PO QID as needed for severe pain 04/19/2012 No Stop Date Active Lasix 40 mg tablet RxNorm: 572954 1 Tablet(s) PO QAM s hould take potassium supplementation with this medication 04/05/2012 06/03/2012 Inactive alprazolam 0.5 mg Tab RxNorm: 792539 1 Tablet(s) PO BID 04/05/2012 Inactive prn hydrocodone-acetaminophen 10 mg-325 mg Tab RxNorm: 3506628 1-2 Tablet(s) PO QID as needed for severe pain 03/25/2012 03/24/2012 Inactive clonidine 0.2 mg Tab RxNorm: 618638 1 Tablet(s) PO TID 03/08/2012 Inactive alprazolam 0.5 mg Tab RxNorm: 666520 1 Tablet(s) PO BID 03/08/2012 Inactive prn Soma 350 mg tablet RxNorm: 636608 1 Tablet(s) PO TID for spasm 02/0903/18/2012 Inactive clonidine 0.2 mg tablet RxNorm: 168562 1 Tablet(s) PO TID 03/08/2012 07/28/2012 Inactive Celebrex 200 mg Cap RxNorm: 478505 1 Capsule(s) PO QD for joint radu n 03/01/2012 04/29/2012 Inactive amlodipine 5 mg Tab RxNorm: 033016 1 Tablet(s) PO QD 02/26/201202/24 Inactive amlodipine 5 mg Tab RxNorm: 302220 1 Tablet(s) PO QD 02/26/201204/25 Inactive Bactroban 2 % Ointment RxNorm: 627872 Application TOP QID to sores 02/23/2012 No Stop Date Active amlodipine 2.5 mg tablet RxNorm: 645554 1 Tablet(s) PO QHS 02/20/20 12 02/25/2012 Inactive doxycycline hyclate 100 mg Cap RxNorm: 9665180 1 Capsule(s) PO BID 02/20/2012 02/29/2012 Inactive hydrocodone-acetaminophen 10 mg-325 mg Tab RxNorm: 7030253 1-2 T ablet(s) PO QID 02/08/2012 No Stop Date Active alprazolam 0.5 mg Tab RxNorm: 330328 1 Tablet(s) PO BID 02/08/2012 Inactive prn Singulair 10 mg Tab RxNorm: 754277 1 Tablet(s) PO QD 02/08/201204/30 Inactive Soma 350 mg Tab RxNorm: 796474 1 Tablet(s) PO TID for spasm 012 03/07/2012 Inactive Soma 350 mg Tab RxNorm: 906197 1 Tablet(s) PO TID for spasm 012 02/05/2012 Inactive diclofenac sodium 75 mg tablet,delayed release RxNorm: 63168 8 1 Tablet(s) PO BID for pain 02/01/2012 03/18/2012 Inactive Celebrex 200 mg Cap RxNorm: 211093 1 Capsule(s) PO QD for joint radu n 01/30/2012 02/28/2012 Inactive Lasix 40 mg Tab RxNorm: 045283 1 Tablet(s) PO QAM 01/24/2012 03/18/20 12 Inactive potassium chloride ER 20 mEq tablet,extended release(part/cr yst) RxNorm: 196777 2 Tablet(s) PO BID 01/24/2012 02/22/2012 Inactive alprazolam 0.5 mg Tab RxNorm: 683205 1 Tablet(s) PO BID 01/11/2012 Inactive prn hydrocodone-acetaminophen 10 mg-325 mg Tab RxNorm: 1545561 1-2 T ablet(s) PO QID 01/11/2012 No Stop Date Active Ambien 10 mg Tab RxNorm: 844339 1 Tablet(s) PO QHS 01/11/2012 012 Inactive Klor-Con 8 mEq Tab RxNorm: 351917 1 Tablet(s) PO BID 01/11/201201/22 Inactive diclofenac sodium 75 mg Tab, Delayed Release RxNorm: 352873 1 Tablet(s) PO BID for pain 01/10/2012 01/31/2012 Inactive Ambien 10 mg Tab RxNorm: 262327 1 Tablet(s) PO QHS 12/11/2011 012 Inactive alprazolam 0.5 mg Tab RxNorm: 844747 1 Tablet(s) PO BID 12/11/2011 Inactive prn hydrocodone 10 mg-acetaminophen 325 mg tablet RxNorm: 155900 1-2 Tablet(s) PO TID 11/28/2011 No Stop Date Active as needed for pa in - Previous quantity #240, will start dosing for #180 in April 2011 per Doctor Ignacio. Ambien 10 mg Tab RxNorm: 367358 1 Tablet(s) PO QHS 11/09/2011 012 Inactive alprazolam 0.5 mg Tab RxNorm: 212732 1 Tablet(s) PO BID 11/09/2011 Inactive prn hydrocodone-acetaminophen 10 mg-325 mg Tab RxNorm: 4320630 1-2 T ablet(s) PO TID 11/06/2011 No Stop Date Active as needed for pain - Previous quantity #240, will start dosing for #180 in April 2011 per Doctor Ignacio. Singulair 10 mg Tab RxNorm: 829208 1 Tablet(s) PO QD 10/13/201110/12 Inactive Singulair 10 mg Tab RxNorm: 889188 1 Tablet(s) PO QD 10/13/201102/06 Inactive hydrocodone-acetaminophen 10 mg-325 mg Tab RxNorm: 7379708 1-2 T ablet(s) PO TID 10/10/2011 10/09/2011 Inactive as needed for pain - Previous quantity #240, will start dosing for #180 in April [address] Ignacio. hydrocodone-acetaminophen 10 mg-325 mg Tab RxNorm: 5175371 1-2 T ablet(s) PO TID 10/09/2011 No Stop Date Active as needed for pain - Previous quantity #240, will start dosing for #180 in April 2011 [address] Ignacio. Klor-Con 8 mEq Tab RxNorm: 271248 1 Tablet(s) PO BID 10/02/201101/09 Inactive triamterene 75 mg-hydrochlorothiazide 50 mg tablet RxNorm: 3 76746 1 Tablet(s) PO QD 09/14/2011 03/06/2013 Inactive Ambien 10 mg Tab RxNorm: 878732 1 Tablet(s) PO QHS 09/14/2011 012 Inactive hydrocodone-acetaminophen 10 mg-325 mg Tab RxNorm: 6180625 1-2 T ablet(s) PO TID 09/14/2011 No Stop Date Active as needed for pain - Previous quantity #240, will start dosing for #180 in April [address] Ignacio. alprazolam 0.5 mg Tab RxNorm: 228452 1 Tablet(s) PO BID 09/14/2011 Inactive prn Zithromax 500 mg Tab RxNorm: 771745 1 Tablet(s) PO QD 09/13/201109/10 Inactive prednisone 20 mg Tab RxNorm: 897543 1 Tablet(s) PO BID 08/31/2011 Inactive Ambien 10 mg Tab RxNorm: 425314 1 Tablet(s) PO QHS 08/17/2011 011 Inactive hydrocodone-acetaminophen 10 mg-325 mg Tab RxNorm: 6475249 1-2 T ablet(s) PO TID 08/17/2011 No Stop Date Active as needed for pain - Previous quantity #240, will start dosing for #180 in April 2011 [address] Doctor Ignacio. clonidine 0.2 mg Tab RxNorm: 682763 1 Tablet(s) PO TID 08/17/201112/2011 Inactive Ambien 10 mg Tab RxNorm: 073475 1 Tablet(s) PO QHS 08/17/2011 019 Inactive alprazolam 0.5 mg Tab RxNorm: 015783 1 Tablet(s) PO BID 08/17/2011 Inactive prn hydrocodone-acetaminophen 10 mg-325 mg Tab RxNorm: 3114431 1-2 T ablet(s) PO TID 08/17/2011 08/16/2011 Inactive as needed for pain - Previous quantity #240, will start dosing for #180 in April 2011 [address] Ignacio. Singulair 10 mg Tab RxNorm: 792082 1 Tablet(s) PO QD 08/17/201108/16 Inactive Klor-Con 8 mEq Tab RxNorm: 862914 1 Tablet(s) PO QD 08/17/20112011 Inactive alprazolam 0.5 mg Tab RxNorm: 939317 1 Tablet(s) PO BID 07/20/2011 Inactive prn Ambien 10 mg Tab RxNorm: 482843 1 Tablet(s) PO QHS 07/20/2011 012 Inactive Singulair 10 mg Tab RxNorm: 915001 1 Tablet(s) PO QD 07/20/201107/19 Inactive Premarin 1.25 mg tablet RxNorm: 371516 2 Tablet(s) PO QD 07/20/2011 0 01/21/2019 Inactive Premarin 1.25 mg tablet RxNorm: 036235 1-2 Tablet(s) PO QD 07/20/20 11 12/16/2011 Inactive Premarin 1.25 mg Tab RxNorm: 565076 1-2 Tablet(s) PO QD 07/06/2011 Inactive alprazolam 0.5 mg Tab RxNorm: 410206 1 Tablet(s) PO BID 06/22/2011 Inactive prn alprazolam 0.5 mg Tab RxNorm: 474535 1 Tablet(s) PO BID 06/22/2011 Inactive prn Premarin 1.25 mg Tab RxNorm: 264905 1 Tablet(s) PO QD m ay do 90 day fill if desired 06/22/2011 07/05/2011 Inactive hydrocodone-acetaminophen 10 mg-325 mg Tab RxNorm: 2575384 1-2 T ablet(s) PO TID 06/22/2011 No Stop Date Active as needed for pain - Previous quantity #240, will start dosing for #180 in April [address] Ignacio. clonidine 0.2 mg Tab RxNorm: 113482 1 Tablet(s) PO TID 05/25/201103/2011 Inactive triamterene-hydrochlorothiazide 75 mg-50 mg Tab RxNorm: 3108 18 1 Tablet(s) PO QD 05/25/2011 09/13/2011 Inactive alprazolam 0.5 mg Tab RxNorm: 420392 1 Tablet(s) PO BID 05/25/2011 Inactive prn hydrocodone-acetaminophen 10 mg-325 mg Tab RxNorm: 9248243 1-2 T ablet(s) PO TID 05/25/2011 No Stop Date Active as needed for pain - Previous quantity #240, will start dosing for #180 in April [address] Ignacio. Robaxin-750 750 mg Tab RxNorm: 545030 2 Tablet(s) PO QHS 05/22/2011 1 Inactive prn spasm hydrocodone-acetaminophen 10 mg-325 mg Tab RxNorm: 6187146 1-2 T ablet(s) PO TID 04/26/2011 No Stop Date Active as needed for pain - Previous quantity #240, will start dosing for #180 in April [address] Ignacio. alprazolam 0.5 mg Tab RxNorm: 861052 1 Tablet(s) PO BID 04/25/2011 Inactive prn Klor-Con 8 mEq Tab RxNorm: 876215 1 Tablet(s) PO QD 03/30/20112010 Inactive Klor-Con 8 mEq Tab RxNorm: 338585 1 Tablet(s) PO QD 03/29/20112010 Inactive hydrocodone-acetaminophen 10 mg-325 mg Tab RxNorm: 0821034 1-2 T ablet(s) PO TID 03/20/2011 04/25/2011 Inactive as needed for pain - Previous quantity #240, will start dosing for #180 in April 2011 [address] Ignacio. alprazolam 0.5 mg Tab RxNorm: 238681 1 Tablet(s) PO BID prn 011 03/30/2011 Inactive Ambien 10 mg Tab RxNorm: 023857 1 Tablet(s) PO QHS 03/01/2011 011 Inactive cyclobenzaprine 10 mg Tab RxNorm: 827155 1 Tablet(s) PO TID 011 03/18/2012 Inactive cyclobenzaprine 10 mg Tab RxNorm: 084522 1 Tablet(s) PO TID 011 01/08/2011 Inactive cyclobenzaprine 10 mg Tab RxNorm: 653035 1 Tablet(s) PO TID 011 12/20/2010 Inactive terbinafine 250 mg Tab RxNorm: 361404 1 Tablet(s) PO QD 12/12/2010 Inactive triamterene-hydrochlorothiazide 75 mg-50 mg Tab RxNorm: 3108 18 1 Tablet(s) PO QD 12/07/2010 01/12/2020 Inactive Klor-Con 8 8 mEq Tab RxNorm: 708014 1 Tablet(s) PO QD 12/07/201001/08 Inactive Premarin 1.25 mg Tab RxNorm: 907018 2 Tablet(s) PO QD 12/07/201001/08 Inactive clonidine 0.2 mg Tab RxNorm: 983232 1 Tablet(s) PO TID 12/07/2010 Inactive hydrocodone-acetaminophen 7.5 mg-650 mg Tab RxNorm: 834450 1 Ta blet(s) PO Q4H 12/05/2010 01/21/2019 Inactive hydrocodone-acetaminophen 7.5 mg-650 mg Tab RxNorm: 239601 1 Ta blet(s) PO Q4H 10/26/2010 11/14/2010 Inactive hydrocodone-acetaminophen 7.5 mg-650 mg Tab RxNorm: 823006 1 Ta blet(s) PO Q4H 10/13/2010 10/25/2010 Inactive hydrocodone-acetaminophen 7.5 mg-650 mg Tab RxNorm: 737570 1 Ta blet(s) PO Q4H 09/15/2010 09/12/2010 Inactive alprazolam 0.5 mg Tab RxNorm: 030279 1 Tablet(s) PO BID prn 011 09/12/2010 Inactive terbinafine 250 mg Tab RxNorm: 188560 1 Tablet(s) PO QD 09/05/2010 Inactive hydrocodone-acetaminophen 7.5 mg-650 mg Tab RxNorm: 952671 1 Ta blet(s) PO Q4H 08/29/2010 09/17/2010 Inactive alprazolam 0.5 mg Tab RxNorm: 670039 1 Tablet(s) PO BID prn 010 09/27/2010 Inactive alprazolam 0.5 mg Tab RxNorm: 010799 1 Tablet(s) PO BID prn 010 09/06/2010 Inactive Klor-Con 8 mEq Tab RxNorm: 951507 1 Tablet(s) PO QD 08/08/20102010 Inactive hydrocodone-acetaminophen 7.5 mg-650 mg Tab RxNorm: 372651 1 Ta blet(s) PO Q4H 08/08/2010 08/27/2010 Inactive Ambien 10 mg Tab RxNorm: 617034 1 Tablet(s) PO QHS 08/08/2010 Inactive clonidine 0.2 mg Tab RxNorm: 891509 1 Tablet(s) PO TID 08/08/2010 Inactive Premarin 1.25 mg Tab RxNorm: 057776 2 Tablet(s) PO QD 08/08/201009/12 Inactive Ambien 10 mg Tab RxNorm: 528953 1 Tablet(s) PO QHS 07/18/2010 Inactive alprazolam 0.5 mg Tab RxNorm: 924920 1 Tablet(s) PO BID prn 010 08/07/2010 Inactive hydrocodone-acetaminophen 7.5 mg-650 mg Tab RxNorm: 453382 1 Ta blet(s) PO Q4H 07/12/2010 07/31/2010 Inactive clonidine 0.2 mg Tab RxNorm: 771993 1 Tablet(s) PO TID 06/20/2010 Inactive terbinafine 250 mg Tab RxNorm: 364178 1 Tablet(s) PO QD 05/24/2010 Inactive Clonidine 0.2 mg Tab RxNorm: 832101 1 Tablet(s) PO TID 05/24/201006/2010 Inactive Ambien 10 mg Tab RxNorm: 521767 1 Tablet(s) PO QHS 05/24/2010 010 Inactive alprazolam 0.5 mg Tab RxNorm: 947120 1 Tablet(s) PO BID 05/24/2010 Inactive Klor-Con 8 mEq Tab RxNorm: 770574 1 Tablet(s) PO QD 05/24/20102009 Inactive alprazolam 0.5 mg Tab RxNorm: 485459 2 Tablet(s) PO QD prn 05/24/20 10 07/17/2010 Inactive triamterene-hydrochlorothiazide 75 mg-50 mg Tab RxNorm: 3108 18 1 Tablet(s) PO QD 05/24/2010 11/19/2010 Inactive Ambien 10 mg Tab RxNorm: 992771 1 Tablet(s) PO QHS 05/23/2010 010 Inactive Alprazolam 0.5 mg Tab RxNorm: 279626 2 Tablet(s) PO QD prn 05/23/2005/23/2010 Inactive Premarin 1.25 mg Tab RxNorm: 125167 2 Tablet(s) PO QD 05/19/201007/12 Inactive Hydrocodone-Acetaminophen 7.5 mg-650 mg Tab RxNorm: 603959 1 Ta blet(s) PO Q4H 05/19/2010 03/20/2011 Inactive Prednisone 20 mg Tab RxNorm: 120661 1 Tablet(s) PO BID 05/17/2010 Inactive Prednisone 20 mg Tab RxNorm: 253044 1 Tablet(s) PO BID 05/06/201001/2010 Inactive Premarin 1.25 mg Tab RxNorm: 945668 Tablet(s) PO 2 M-W-F, and 1 Cz-Or-Cak-Sun 05/05/2010 08/02/2010 Inactive Premarin 1.25 mg Tab RxNorm: 707298 Tablet(s) PO 2 M-W-F, and 1 Tn-Oi-Yxh-Sun 05/04/2010 05/04/2010 Inactive Premarin 1.25 mg Tab RxNorm: 033371 Tablet(s) PO 2 M-W-F, and 1 Mt-Ix-Znm-Sun 05/04/2010 05/03/2010 Inactive Prednisone 20 mg Tab RxNorm: 645790 1 Tablet(s) PO BID 04/27/2010 Inactive Alprazolam 0.5 mg Tab RxNorm: 092381 2 Tablet(s) PO QD prn 04/26/20 10 05/22/2010 Inactive Clindamycin 300 mg Cap RxNorm: 764191 2 Capsule(s) PO TID 04/05/2010 04/18/2010 Inactive Terbinafine 250 mg Tab RxNorm: 294352 1 Tablet(s) PO QD 04/04/2010 Inactive Hydrocodone-Acetaminophen 7.5 mg-650 mg Tab RxNorm: 357659 1 Ta blet(s) PO Q4H 03/30/2010 04/18/2010 Inactive Avelox 400 mg Tab RxNorm: 349594 1 Tablet(s) PO QD 03/09/2010 010 Inactive Hydrocodone-Acetaminophen 7.5 mg-650 mg Tab RxNorm: 858051 1 Ta blet(s) PO Q4H 03/08/2010 03/27/2010 Inactive Alprazolam 0.5 mg Tab RxNorm: 381360 2 Tablet(s) PO QD prn 03/08/20 10 04/25/2010 Inactive Klor-Con 8 mEq Tab RxNorm: 094380 1 Tablet(s) PO QD when takes lasi x 03/07/2010 09/29/2019 Inactive Premarin 1.25 mg Tab RxNorm: 116458 1 Tablet(s) PO QD 03/03/201003/11 Inactive Alprazolam 0.5 mg Tab RxNorm: 771057 1 Tablet(s) PO BID PRN 010 No Stop Date Active triamterene-hydrochlorothiazide 75 mg-50 mg Tab RxNorm: 3108 18 1 Tablet(s) PO QD 02/09/2010 02/03/2011 Inactive Hydrocodone-Acetaminophen 10 mg-750 mg Tab RxNorm: 122845 1 Tablet(s) PO Q4H PRN 02/09/2010 03/20/2011 Inactive Clonidine 0.2 mg Tab RxNorm: 449214 1 Tablet(s) PO TID 01/13/201009/2009 Inactive Alprazolam 0.5 mg Tab RxNorm: 931170 1 Tablet(s) PO BID PRN 010 01/12/2010 Inactive Hydrocodone-Acetaminophen 10 mg-750 mg Tab RxNorm: 326297 1 Tablet(s) PO Q4H PRN 01/13/2010 01/12/2010 Inactive ANGELIQ 1 mg-0.5 mg Tab RxNorm: 4047542 1 Tablet(s) PO QD 12/27/2009 01/23/2010 Inactive Lasix 40 mg Tab RxNorm: 485415 1 Tablet(s) PO QAM 12/14/2009 06/11/20 10 Inactive Vitamin B12 1000mcg Tablet RxNorm: 1 Tablet(s) PO QD No Start Date Active cyclobenzaprine 10 mg tablet RxNorm: 533874 1 Tablet(s) PO TID as needed DO NOT USE WITH BACLOFEN No Start Date Active Vitamin D 5,000 unit Tab RxNorm: 1 Tablet(s) PO QD No Start Date Active vitamin E (dl, acetate) 400 unit Cap RxNorm: 582824 1 Capsule(s ) PO QD No Start Date Active Benadryl 25 mg Cap RxNorm: 3231957 Capsule(s) PO PRN No Start Date Inactive amitriptyline 100 mg tablet RxNorm: 401734 1 Tablet(s) PO QHS No St art Date 11/27/2016 Inactive Zithromax Z-Dustin 250 mg tablet RxNorm: 317906 Tablet(s) PO as di rected No Start Date 07/22/2013 Inactive Klor-Con 8 mEq tablet,extended release RxNorm: 713276 1 Tablet( s) PO BID No Start Date 07/28/2012 Inactive scopolamine 1.5 mg 72 hr Transderm Patch RxNorm: 751967 Application TD Q72H for motion sickness No Start Date 05/25/2013 Inactive Klonopin 1 mg tablet RxNorm: 549360 1-2 Tablet(s) PO QHS as nee ded for sleep No Start Date 06/20/2015 Inactive Klor-Con M20 mEq tablet,extended release RxNorm: 768923 2 Tablet(s) PO BID to use with lasix No Start Date 11/11/2013 Inactive Bystolic 5 mg tablet RxNorm: 578794 1 Tablet(s) PO QD No Start Date 1 Inactive Bystolic 10 mg tablet RxNorm: 002664 1 Tablet(s) PO BID No Start Da te 07/06/2015 Inactive Premarin 1.25 mg Tab RxNorm: 119887 Tablet(s) PO 2 -W-, and 1 Dp-Hm-Rwh-Sun No Start Date 05/03/2010 Inactive baclofen 20 mg tablet RxNorm: 847549 1 Tablet(s) PO TID as needed for muscle spasm No Start Date 07/22/2015 Inactive hydrocodone-acetaminophen 7.5 mg-650 mg Tab RxNorm: 484476 1 Tablet(s) PO Q4H as needed for pain No Start Date 03/20/2011 Inactive albuterol sulfate 1.25 mg/3 mL Neb Solution RxNorm: 920543 1 Unit Dose INH Q4H 2boxes No Start Date 09/06/2015 Inactive Butrans 20 mcg/hour Transderm Patch RxNorm: 988047 1 TD WEEKLY apply to skin weekly after removing previous. No Start Date 07/22/2013 Inactive Medrol (Dustin) 4 mg tablets in a dose pack RxNorm: 504624 Tablet(s) PO As Directed No Start Date 07/30/2016 Inactive hydrocodone-acetaminophen 10 mg-325 mg Tab RxNorm: 5497565 1-2 Tablet(s) PO TID as needed for pain No Start Date 03/19/2011 Inactive Klonopin 1 mg tablet RxNorm: 155449 1 Tablet(s) PO QHS No Start Date 02/28/2016 Inactive honey topical RxNorm: topical No Start Date 06/16/2018 Inactive Clonidine 0.2 mg Tab RxNorm: 435930 1 Tablet(s) PO TID No Start Date 01/12/2010 Inactive ketorolac 10 mg tablet RxNorm: 717597 1 Tablet(s) PO Q8H No Start D ate 03/18/2012 Inactive as needed for headache Singulair 10 mg Tab RxNorm: 161345 1 Tablet(s) PO QD No Start Date Inactive Premarin 1.25 mg Tab RxNorm: 775963 1 Tablet(s) PO QD No Start Date 1 Inactive Flonase 50 mcg/Actuation Nasal [place] RxNorm: 5307689 1 [place] CECEL[place] AL BID No Start Date 03/18/2012 Inactive Terbinafine 250 mg Tab RxNorm: 329407 1 Tablet(s) PO QD No Start Da te 04/03/2010 Inactive Fexofenadine 180 mg Tab RxNorm: 0971028 1 Tablet(s) PO QD No Start Date 09/06/2015 Inactive baclofen 20 mg tablet RxNorm: 115872 1 Tablet(s) PO TID as needed N o Start Date 05/25/2014 Inactive Diovan 160 mg Tab RxNorm: 266597 1 Tablet(s) PO QD No Start Date 09/12 Inactive mupirocin 2 % topical ointment RxNorm: 552773 1 Application TOP QID No Start Date 04/25/2016 Inactive ZOFRAN ODT 4 mg Tab, Rapid Dissolve RxNorm: 931781 1 Tablet(s) PO Q4H No Start Date 03/18/2012 Inactive as needed for nausea and vomiting Alprazolam 0.5 mg Tab RxNorm: 465419 1 Tablet(s) PO BID PRN No Star t Date 01/12/2010 Inactive cyclobenzaprine 10 mg tablet RxNorm: 441934 1 Tablet(s) PO TID as needed for muscle spasm No Start Date 10/08/2017 Inactive Albuterol 0.083% Aerosol Solution RxNorm: 1 Appl ication INH Q4H Use one ampule every 4 hrs with nebulizer as needed for shortness of breath. No Start Date 10/09/2010 Inactive lorazepam 1 mg tablet RxNorm: 279360 1 1/2 Tablet(s) PO QHS No Star t Date 02/02/2016 Inactive Melatonin 3 mg Tab RxNorm: 822865 Tablet(s) PO PRN No Start Date 07/11 Inactive Medrol (Dustin) 4 mg Tabs in a Dose Pack RxNorm: 176962 Tablet(s) PO N o Start Date 11/28/2010 Inactive lorazepam 1 mg tablet RxNorm: 745923 1 Tablet(s) PO QHS as need ed for sleep No Start Date 01/30/2016 Inactive hydrocodone-acetaminophen 10 mg-325 mg Tab RxNorm: 2574180 1-2 Tablet(s) PO QID as needed for severe pain No Start Date 03/24/2012 Inactive celecoxib 200 mg capsule RxNorm: 391968 1 Capsule(s) PO BID No Star t Date 06/26/2019 Inactive amlodipine 5 mg-benazepril 20 mg capsule RxNorm: 892779 1 Capsu le(s) PO QD No Start Date 04/10/2017 Inactive Bystolic 20 mg tablet RxNorm: 958734 1/2 Tablet(s) PO QAM No Start Date 01/23/2016 Inactive Bystolic 20 mg tablet RxNorm: 250742 1 Tablet(s) PO QAM No Start Da te 04/25/2016 Inactive Ambien 10 mg Tab RxNorm: 565989 1 Tablet(s) PO QHS No Start Date 05/11 Inactive Klor-Con 8 mEq Tab RxNorm: 010838 1 Tablet(s) PO QD when takes lasix No Start Date 03/06/2010 Inactive aspirin 81 mg tablet RxNorm: 557225 1 Tablet(s) PO QD No Start Date 0 01/29/2018 Inactive hydrocodone-acetaminophen 10 mg-325 mg Tab RxNorm: 3287606 1-2 T ablet(s) PO QID No Start Date 01/10/2012 Inactive Bystolic 10 mg tablet RxNorm: 836822 1 Tablet(s) PO QAM take one daily in the morning. No Start Date 05/28/2013 Inactive nystatin 100,000 unit/mL Oral Susp RxNorm: 042583 5 Milliliter( s) PO QID No Start Date 03/18/2012 Inactive swish and spit scopolamine 1.5 mg 72 hr Transderm Patch RxNorm: 532657 1 Unit Dose TD Q72H for motion sickness No Start Date 12/23/2013 Inactive Hydrocodone-Acetaminophen 10 mg-750 mg Tab RxNorm: 482709 1 Tablet(s) PO Q4H PRN No Start Date 01/12/2010 Inactive Soma 350 mg tablet RxNorm: 284272 1 Tablet(s) PO TID as needed for spasm No Start Date 01/12/2013 Inactive baclofen 10 mg tablet RxNorm: 858995 1 Tablet(s) PO TID as needed for muscle spasm No Start Date 09/18/2019 Inactive Soma 350 mg Tab RxNorm: 106259 1 Tablet(s) PO TID for spasm No Star t Date 01/31/2012 Inactive Co Q-10 400 mg capsule RxNorm: 444144 1 Capsule(s) PO QD No Start D ate 01/21/2019 Inactive nystatin 100,000 unit/gram topical cream RxNorm: 577905 Applica tion TOP BID No Start Date 03/22/2015 Inactive Exforge 5 mg-160 mg Tab RxNorm: 334888 1 Tablet(s) PO QD No Start D ate 10/09/2010 Inactive Hydrocodone-Acetaminophen 7.5 mg-650 mg Tab RxNorm: 098864 1 Ta blet(s) PO Q4H No Start Date 03/07/2010 Inactive Robaxin-750 750 mg Tab RxNorm: 316984 1-2 Tablet(s) PO TID prn spasm No Start Date 05/21/2011 Inactive amlodipine 5 mg tablet RxNorm: 812133 1 Tablet(s) PO QHS No Start D ate 09/29/2015 Inactive oxycodone-acetaminophen 10 mg-325 mg tablet RxNorm: 3264482 1-2 Tablet(s) PO Q6H No Start Date 06/16/2018 Inactive Triamterene-Hydrochlorothiazide 75 mg-50 mg Tab RxNorm: 3108 18 1 Tablet(s) PO QD No Start Date 02/08/2010 Inactive Alprazolam 0.5 mg Tab RxNorm: 926397 2 Tablet(s) PO QD prn No Start Date 03/07/2010 Inactive Bystolic 20 mg tablet RxNorm: 292716 1 Tablet(s) PO QAM No Start Da te 08/17/2015 Inactive ketorolac 10 mg tablet RxNorm: 847358 1 Tablet(s) PO QID prn he adache No Start Date 07/17/2012 Inactive acyclovir 800 mg Tab RxNorm: 672304 1 Tablet(s) PO BID No Start Date 03/18/2012 Inactive duloxetine 60 mg capsule,delayed release RxNorm: 480398 1 Capsu le(s) PO QD No Start Date 09/29/2015 Inactive Norvasc 5 mg tablet RxNorm: 883529 1 Tablet(s) PO QHS No Start Date 1 10/18/2014 Inactive promethazine 25 mg tablet RxNorm: 582827 1 Tablet(s) PO Q8H use sparingly No Start Date 07/22/2013 Inactive alprazolam 0.5 mg tablet RxNorm: 665885 3 Tablet(s) PO QHS No Start Date 06/06/2015 Inactive Lunesta 3 mg tablet RxNorm: 148954 1 Tablet(s) PO QHS No Start Date 0 09/20/2017 Inactive hydrocodone-acetaminophen 10 mg-325 mg Tab RxNorm: 2617979 1-2 Tablet(s) PO TID as needed for pain No Start Date 12/10/2011 Inactive Coricidin HBP Cough & Cold 4 mg-30 mg Tab RxNorm: 3610391 Tablet (s) PO PRN No Start Date 10/09/2010 Inactive Bactroban 2 % Ointment RxNorm: 236566 Application TOP QID to so res No Start Date 02/22/2012 Inactive Flonase 50 mcg/actuation Nasal [place] RxNorm: 534822 2 [place] C[place] AL QHS No Start Date 03/03/2014 Inactive Medication Administered No Medication Administered data Immunizations Vaccine Codes Date Status Tetanus, Diptheria, Pertussis CVX: 115 02/27/2014 Results Observation Observation Code Item Item Code Result Date S [facility] Location MEAN GLUC 7611556 Calc Mean Gluc 209 mg/dL 02/12/2020 Unkn own GLYCOSYLATED HEMOGLOBIN TEST 27645 Hgb A1c 50639-0 8.9 % 0 02/12/2020 Unknown GFR CALC 9832056 GFR Non Afr Amr >60 mL/min 02/12/2020 Un known GFR CALC 7943594 GFR Afr Amr >60 mL/min 02/12/2020 Unknow n COMPREHENSIVE METABOLIC 61892 AST 27 U/L 2019 Unknown COMPREHENSIVE METABOLIC 49459 ALT 16 U/L 2019 Unknown COMPREHENSIVE METABOLIC 43305 BUN 22 mg/dL 2019 Unknown COMPREHENSIVE METABOLIC 48065 ALBUMIN 3.9 g/dL 2019 Unknown COMPREHENSIVE METABOLIC 64277 CHLORIDE 98 mmol/L 2019 Unknown COMPREHENSIVE METABOLIC 17071 Bili Total 0.5 mg/dL 02/11 Unknown COMPREHENSIVE METABOLIC 00726 ALK PHOS 72 U/L 2019 Unknown COMPREHENSIVE METABOLIC 00723 SODIUM 137 mmol/L 02/11 Unknown COMPREHENSIVE METABOLIC 94103 CREATININE 0.96 mg/dL 12/2019 Unknown COMPREHENSIVE METABOLIC 13666 CALCIUM 9.1 mg/dL 2019 Unknown COMPREHENSIVE METABOLIC 23886 POTASSIUM 4.6 mmol/L 02/11 Unknown COMPREHENSIVE METABOLIC 67718 Total Protein 6.5 g/dL Unknown COMPREHENSIVE METABOLIC 98000 Glucose 129 mg/dL 2019 Unknown COMPREHENSIVE METABOLIC 97503 Bicarbonate 31 mmol/L 12/2019 Unknown COMPREHENSIVE METABOLIC 71376 AGAP 8 mmol/L 2019 Unknown COMPREHENSIVE METABOLIC 70756 AST 15 U/L 2019 Unknown COMPREHENSIVE METABOLIC 26663 ALT 13 U/L 2019 Unknown COMPREHENSIVE METABOLIC 49632 BUN 12 mg/dL 2019 Unknown COMPREHENSIVE METABOLIC 70032 ALBUMIN 3.9 g/dL 2019 Unknown COMPREHENSIVE METABOLIC 36875 CHLORIDE 97 mmol/L 2019 Unknown COMPREHENSIVE METABOLIC 62513 Bili Total 0.4 mg/dL 09/29 Unknown COMPREHENSIVE METABOLIC 45192 ALK PHOS 130 U/L 2019 Unknown COMPREHENSIVE METABOLIC 30869 SODIUM 136 mmol/L 09/29 Unknown COMPREHENSIVE METABOLIC 03630 CREATININE 0.92 mg/dL 09/11 Unknown COMPREHENSIVE METABOLIC 88036 CALCIUM 9.1 mg/dL 2019 Unknown COMPREHENSIVE METABOLIC 72286 POTASSIUM 4.4 mmol/L 09/29 Unknown COMPREHENSIVE METABOLIC 12719 Total Protein 6.2 g/dL Unknown COMPREHENSIVE METABOLIC 47564 Glucose 391 mg/dL 2019 Unknown COMPREHENSIVE METABOLIC 53676 Bicarbonate 30 mmol/L 09/11 Unknown COMPREHENSIVE METABOLIC 59068 AGAP 9 mmol/L 2019 Unknown MEAN GLUC 9142760 Calc Mean Gluc 332 mg/dL 09/29/2019 Unkn own COMPLETE BLOOD COUNT [id number] WBC 7.0 10e9/L 09/29/19 Unknown COMPLETE BLOOD COUNT [id number] RBC 4.69 10e12/L 2019 Unknown COMPLETE BLOOD COUNT [id number] HEMOGLOBIN 14.6 g/dL 09/29/19 Unknown COMPLETE BLOOD COUNT [id number] HEMATOCRIT 45.2 % 09/29/19 Unknown COMPLETE BLOOD COUNT [id number] MCV 96.4 fL 0 Unknown COMPLETE BLOOD COUNT [id number] MCH 31.1 pg 0 Unknown COMPLETE BLOOD COUNT [id number] MCHC 32.3 g/dL 0 Unknown COMPLETE BLOOD COUNT [id number] PLATELET COUNT 209 10e9/L Unknown COMPLETE BLOOD COUNT [id number] Mean Plt Volume 9.8 fL Unknown COMPLETE BLOOD COUNT [id number] Neut Auto 48.1 % 0 Unknown COMPLETE BLOOD COUNT [id number] Lymph Auto 36.5 % 09/29/19 Unknown COMPLETE BLOOD COUNT [id number] Todd Auto 8.6 % 0 Unknown COMPLETE BLOOD COUNT [id number] RDW 13.4 % 0 Unknown COMPLETE BLOOD COUNT [id number] Eos Auto 6.5 % 0 Unknown COMPLETE BLOOD COUNT [id number] Baso Auto 0.3 % 0 Unknown COMPLETE BLOOD COUNT [id number] Neutrophil Abs 3.37 10e9/L Unknown COMPLETE BLOOD COUNT [id number] Lymphocyte Abs 2.56 10e9/L Unknown COMPLETE BLOOD COUNT [id number] Monocyte Abs 0.60 10e9/L 09/11 Unknown COMPLETE BLOOD COUNT [id number] Eosinophil Abs 0.46 10e9/L Unknown COMPLETE BLOOD COUNT [id number] RDW-SD 45.9 fL 0 Unknown COMPLETE BLOOD COUNT [id number] Basophil Abs 0.02 10e9/L 09/11 Unknown LIPID GROUP 76680 Cholesterol 248 mg/dL 09/29/2019 Unkno wn LIPID GROUP 23276 Triglyceride 898 mg/dL 09/29/2019 Unkn own LIPID GROUP 61122 HDL CHOLESTEROL 41 mg/dL 09/29/2019 U nknown LIPID GROUP 08244 Chol/HDL Ratio 6.05 ratio 09/29/2019 U nknown LIPID GROUP 81964 NON-HDL Chol 207 mg/dL 09/29/2019 Unkn own LIPID GROUP 25253 LDL Cholesterol N/A Trig >400 020 Unknown GLYCOSYLATED HEMOGLOBIN TEST 02025 Hgb A1c 55284-4 13.2 % 0 09/29/2019 Unknown FREE T4 95142 T4 Free 0.75 ng/dL 09/29/2019 Unknown GFR CALC 7797945 GFR Non Afr Amr >60 mL/min 09/29/2019 Un known GFR CALC 2660934 GFR Afr Amr >60 mL/min 09/29/2019 Unknow n THYROID STIMULATING HORMONE 39708 TSH 4.245 uIU/mL 09/29/2019 Unknown COMPLETE BLOOD COUNT [id number] WBC 10.7 10e9/L 018 Unknown COMPLETE BLOOD COUNT [id number] RBC 4.59 10e12/L 2017 Unknown COMPLETE BLOOD COUNT [id number] HEMOGLOBIN 14.8 g/dL 12/11/19 18 Unknown COMPLETE BLOOD COUNT [id number] HEMATOCRIT 44.9 % 12/11/19 18 Unknown COMPLETE BLOOD COUNT [id number] MCV 97.8 fL 8 Unknown COMPLETE BLOOD COUNT [id number] MCH 32.2 pg 8 Unknown COMPLETE BLOOD COUNT 3604620 MCHC 33.0 g/dL 8 Unknown COMPLETE BLOOD COUNT [id number] PLATELET COUNT 261 10e9/L 10/2017 Unknown COMPLETE BLOOD COUNT [id number] Mean Plt Volume 9.5 fL 10/2017 Unknown COMPLETE BLOOD COUNT [id number] Neut Auto 59.9 % 8 Unknown COMPLETE BLOOD COUNT [id number] Lymph Auto 27.4 % 12/11/19 18 Unknown COMPLETE BLOOD COUNT [id number] Todd Auto 8.2 % 8 Unknown COMPLETE BLOOD COUNT [id number] RDW 13.3 % 8 Unknown COMPLETE BLOOD COUNT [id number] Eos Auto 4.1 % 8 Unknown COMPLETE BLOOD COUNT [id number] Baso Auto 0.4 % 8 Unknown COMPLETE BLOOD COUNT [id number] Neutrophil Abs 6.41 10e9/L Unknown COMPLETE BLOOD COUNT [id number] Lymphocyte Abs 2.93 10e9/L Unknown COMPLETE BLOOD COUNT [id number] Monocyte Abs 0.88 10e9/L 10/2017 Unknown COMPLETE BLOOD COUNT [id number] Eosinophil Abs 0.44 10e9/L Unknown COMPLETE BLOOD COUNT [id number] RDW-SD 46.2 fL 8 Unknown COMPLETE BLOOD COUNT [id number] Basophil Abs 0.04 10e9/L 10/2017 Unknown THYROID STIMULATING HORMONE 86777 TSH 4.015 uIU/mL 12/10/2017 Unknown COMPREHENSIVE METABOLIC 57264 AST 25 U/L 2017 Unknown COMPREHENSIVE METABOLIC 03607 ALT 17 U/L 2017 Unknown COMPREHENSIVE METABOLIC 53980 BUN 19 mg/dL 2017 Unknown COMPREHENSIVE METABOLIC 50855 ALBUMIN 4.0 g/dL 2017 Unknown COMPREHENSIVE METABOLIC 41503 CHLORIDE 91 mmol/L 2017 Unknown COMPREHENSIVE METABOLIC 64762 Bili Total 0.5 mg/dL 12/10 Unknown COMPREHENSIVE METABOLIC 97707 ALK PHOS 75 U/L 2017 Unknown COMPREHENSIVE METABOLIC 70952 SODIUM 136 mmol/L 12/10 Unknown COMPREHENSIVE METABOLIC 69572 CREATININE 1.05 mg/dL 10/2017 Unknown COMPREHENSIVE METABOLIC 03565 CALCIUM 8.9 mg/dL 2017 Unknown COMPREHENSIVE METABOLIC 03550 POTASSIUM 3.4 mmol/L 12/10 Unknown COMPREHENSIVE METABOLIC 30696 Total Protein 6.5 g/dL Unknown COMPREHENSIVE METABOLIC 74554 Glucose 138 mg/dL 2017 Unknown COMPREHENSIVE METABOLIC 92513 Bicarbonate 35 mmol/L 10/2017 Unknown COMPREHENSIVE METABOLIC 36920 AGAP 10 mmol/L 2017 Unknown MEAN GLUC [id number] Calc Mean Gluc 171 mg/dL 12/10/2017 Unkn own LIPID GROUP 83362 Cholesterol 204 mg/dL 12/10/2017 Unkno wn LIPID GROUP 25719 Triglyceride 411 mg/dL 12/10/2017 Unkn own LIPID GROUP 69932 HDL CHOLESTEROL 50 mg/dL 12/10/2017 U nknown LIPID GROUP 81362 Chol/HDL Ratio 4.08 ratio 12/10/2017 U nknown LIPID GROUP 16237 NON-HDL Chol 154 mg/dL 12/10/2017 Unkn own LIPID GROUP 98284 LDL Cholesterol N/A Trig >400 018 Unknown GLYCOSYLATED HEMOGLOBIN TEST 11744 Hgb A1c 18179-4 7.6 % 0 12/10/2017 Unknown FREE T4 11686 T4 Free 1.40 ng/dL 12/10/2017 Unknown GFR CALC 2828799 GFR Non Afr Amr 55 mL/min 12/10/2017 Unk nown GFR CALC 9757057 GFR Afr Amr >60 mL/min 12/10/2017 Unknow n GFR CALC 3933052 GFR Non Afr Amr 48 mL/min 06/28/2017 Unk nown GFR CALC 4084888 GFR Afr Amr 59 mL/min 06/28/2017 Unknown COMPREHENSIVE METABOLIC 40237 AST 32 U/L 2016 Unknown COMPREHENSIVE METABOLIC 41295 ALT 22 U/L 2016 Unknown COMPREHENSIVE METABOLIC 92459 BUN 23 mg/dL 2016 Unknown COMPREHENSIVE METABOLIC 33650 ALBUMIN 4.7 g/dL 2016 Unknown COMPREHENSIVE METABOLIC 73367 CHLORIDE 89 mmol/L 2016 Unknown COMPREHENSIVE METABOLIC 83764 Bili Total 0.5 mg/dL 06/28 Unknown COMPREHENSIVE METABOLIC 08565 ALK PHOS 90 U/L 2016 Unknown COMPREHENSIVE METABOLIC 27760 SODIUM 135 mmol/L 06/28 Unknown COMPREHENSIVE METABOLIC 33891 CREATININE 1.18 mg/dL 06/10 Unknown COMPREHENSIVE METABOLIC 78305 CALCIUM 9.7 mg/dL 2016 Unknown COMPREHENSIVE METABOLIC 82651 POTASSIUM 3.5 mmol/L 06/28 Unknown COMPREHENSIVE METABOLIC 15955 Total Protein 7.7 g/dL Unknown COMPREHENSIVE METABOLIC 31597 Glucose 129 mg/dL 2016 Unknown COMPREHENSIVE METABOLIC 77897 Bicarbonate 34 mmol/L 06/10 Unknown COMPREHENSIVE METABOLIC 73914 AGAP 12 mmol/L 2016 Unknown LIPID GROUP 51784 HDL TEST 64 MG/DL 08/27/2014 Unknown LIPID GROUP 44820 TRIG 222 MG/DL 08/27/2014 Unknown LIPID GROUP 96906 TEST LDL 209 MG/DL 08/27/2014 Unknown LIPID GROUP 84038 CHOL 317 MG/DL 08/27/2014 Unknown LIPID GROUP 78078 RCHOL/HDL 4.95 RATIO 08/27/2014 Unknow n LIPID GROUP 22124 NON-HDL CH 253 MG/DL 08/27/2014 Unknow n GFR CALC 0764715 GFR AA >60 ML/MIN 08/27/2014 Unknown GFR CALC 9970888 GFR NON-AA >60 ML/MIN 08/27/2014 Unknown COMPLETE BLOOD COUNT 0078947 WBC 7.0 10e9/L 08/27/20 14 Unknown COMPLETE BLOOD COUNT [id number] RBC 4.98 10e12/L 2013 Unknown COMPLETE BLOOD COUNT 9895747 HGB 15.6 g/dL 4 Unknown COMPLETE BLOOD COUNT 1595018 HCT DET 46.5 % 4 Unknown COMPLETE BLOOD COUNT 1048600 MCV 93.4 fL 4 Unknown COMPLETE BLOOD COUNT 6570175 MCH 31.3 pg 4 Unknown COMPLETE BLOOD COUNT 0506736 MCHC 33.5 g/dL 4 Unknown COMPLETE BLOOD COUNT 6636440 PLT 309 10e9/L 08/27/20 14 Unknown COMPLETE BLOOD COUNT 5185001 MPV 9.6 fL 4 Unknown COMPLETE BLOOD COUNT 9059312 CADEN % 57.2 % 4 Unknown COMPLETE BLOOD COUNT 8231128 LY % 33.2 % 4 Unknown COMPLETE BLOOD COUNT 0692979 MON % 7.3 % 4 Unknown COMPLETE BLOOD COUNT 9100785 EOS % 2.0 % 4 Unknown COMPLETE BLOOD COUNT 8286085 BASO % 0.3 % 4 Unknown COMPLETE BLOOD COUNT 3620781 RDW 13.7 % 4 Unknown COMPLETE BLOOD COUNT [id number] ABS CADEN 4.00 10e9/L 014 Unknown COMPLETE BLOOD COUNT 9131640 ABS LYMPH 2.32 10e9/L 014 Unknown COMPLETE BLOOD COUNT [id number] ABS MONO 0.51 10e9/L 014 Unknown COMPLETE BLOOD COUNT [id number] ABS EOS 0.14 10e9/L 014 Unknown COMPLETE BLOOD COUNT 2436907 ABS BASO 0.02 10e9/L 014 Unknown COMPLETE BLOOD COUNT 7992219 RDW-SD 45.1 fL 4 Unknown COMPREHENSIVE METABOLIC 19222 AST 13 U/L 2013 Unknown COMPREHENSIVE METABOLIC 26879 ALT 11 IU/L 2013 Unknown COMPREHENSIVE METABOLIC 29465 BUN 23 MG/DL 2013 Unknown COMPREHENSIVE METABOLIC 54686 ALBUMIN 4.4 GM/DL 2013 Unknown COMPREHENSIVE METABOLIC 21096 CHLORIDE 99 MMOL/L 2013 Unknown COMPREHENSIVE METABOLIC 57588 BILI TOT 0.5 MG/DL 2013 Unknown COMPREHENSIVE METABOLIC 72855 ALK PHOS 56 U/L 2013 Unknown COMPREHENSIVE METABOLIC 20241 SODIUM 138 MMOL/L 08/27 Unknown COMPREHENSIVE METABOLIC 14525 CREATININE 0.95 MG/DL 08/10 Unknown COMPREHENSIVE METABOLIC 40979 CALCIUM 9.8 MG/DL 2013 Unknown COMPREHENSIVE METABOLIC 88541 POTASSIUM 3.5 MMOL/L 08/27 Unknown COMPREHENSIVE METABOLIC 54125 PROT TOT 6.8 GM/DL 2013 Unknown COMPREHENSIVE METABOLIC 88140 Glucose 90 MG/DL 2013 Unknown COMPREHENSIVE METABOLIC 41384 BICARB 34 MMOL/L 2013 Unknown COMPREHENSIVE METABOLIC 80125 ANION GAP 5 MEQ/L 2013 Unknown LIPASE 45006 LIPASE 11 IU/L 07/21/2014 Unknown AMYLASE 65880 AMYLASE 39 IU/L 07/21/2014 Unknown HEMOGLOBIN A1C (GLYCOSYLATED) 7740734 A1C HPLC 41543-8 6.2 % 03/05/2013 Unknown THYROID STIMULATING HORMONE 58176 TSH 6.986 uIU/ML 03/05/2013 Unknown COMPLETE BLOOD COUNT [id number] WBC 12.7 10e9/L 013 Unknown COMPLETE BLOOD COUNT 1473099 RBC 4.53 10e12/L 2012 Unknown COMPLETE BLOOD COUNT 0147741 HGB 14.7 g/dL 3 Unknown COMPLETE BLOOD COUNT 2250629 HCT DET 43.1 % 3 Unknown COMPLETE BLOOD COUNT 4148100 MCV 95.1 fL 3 Unknown COMPLETE BLOOD COUNT 2038081 MCH 32.5 pg 3 Unknown COMPLETE BLOOD COUNT 6003520 MCHC 34.1 g/dL 3 Unknown COMPLETE BLOOD COUNT 6446829 PLT 346 10e9/L 03/05/20 13 Unknown COMPLETE BLOOD COUNT 5247406 MPV 9.5 fL 3 Unknown COMPLETE BLOOD COUNT 7007523 CADEN % 67.6 % 3 Unknown COMPLETE BLOOD COUNT 9557724 LY % 22.1 % 3 Unknown COMPLETE BLOOD COUNT 0772522 MON % 6.6 % 3 Unknown COMPLETE BLOOD COUNT 3495210 EOS % 3.3 % 3 Unknown COMPLETE BLOOD COUNT 5440320 BASO % 0.4 % 3 Unknown COMPLETE BLOOD COUNT 1763514 RDW 14.0 % 3 Unknown COMPLETE BLOOD COUNT 7645287 ABS CADEN 8.59 10e9/L 013 Unknown COMPLETE BLOOD COUNT 3745611 ABS LYMPH 2.81 10e9/L 013 Unknown COMPLETE BLOOD COUNT 2476080 ABS MONO 0.84 10e9/L 013 Unknown COMPLETE BLOOD COUNT [id number] ABS EOS 0.42 10e9/L 013 Unknown COMPLETE BLOOD COUNT 4017439 ABS BASO 0.05 10e9/L 013 Unknown COMPLETE BLOOD COUNT 6414384 RDW-SD 46.0 fL 03/05/201 3 Unknown FREE T4 75980 FREE T4 1.14 NG/DL 03/05/2013 Unknown COMPREHENSIVE METABOLIC 33661 AST 17 U/L 2012 Unknown COMPREHENSIVE METABOLIC 53367 ALT 12 IU/L 2012 Unknown COMPREHENSIVE METABOLIC 48467 BUN 24 MG/DL 2012 Unknown COMPREHENSIVE METABOLIC 41084 ALBUMIN 4.2 GM/DL 2012 Unknown COMPREHENSIVE METABOLIC 39446 CHLORIDE 93 MMOL/L 2012 Unknown COMPREHENSIVE METABOLIC 86515 BILI TOT 0.5 MG/DL 2012 Unknown COMPREHENSIVE METABOLIC 30278 ALK PHOS 75 U/L 2012 Unknown COMPREHENSIVE METABOLIC 32576 SODIUM 141 MMOL/L 03/05 Unknown COMPREHENSIVE METABOLIC 98978 CREATININE 1.36 MG/DL 02/09 Unknown COMPREHENSIVE METABOLIC 95894 CALCIUM 9.2 MG/DL 2012 Unknown COMPREHENSIVE METABOLIC 94501 POTASSIUM 3.1 MMOL/L 03/05 Unknown COMPREHENSIVE METABOLIC 79060 PROT TOT 6.9 GM/DL 2012 Unknown COMPREHENSIVE METABOLIC 46903 Glucose 123 MG/DL 2012 Unknown COMPREHENSIVE METABOLIC 18850 BICARB 36 MMOL/L 2012 Unknown COMPREHENSIVE METABOLIC 16293 ANION GAP 12 MEQ/L 2012 Unknown GFR CALC 0643503 GFR AA 51.0L ML/MIN 03/05/2013 Unknow n GFR CALC 8856256 GFR NON-AA 42.0L ML/MIN 03/05/2013 Unkno wn COMPREHENSIVE METABOLIC 39855 AST 14 U/L 2012 Unknown COMPREHENSIVE METABOLIC 18791 ALT 11 IU/L 2012 Unknown COMPREHENSIVE METABOLIC 37485 BUN 16 MG/DL 2012 Unknown COMPREHENSIVE METABOLIC 98909 ALBUMIN 4.2 GM/DL 2012 Unknown COMPREHENSIVE METABOLIC 48888 CHLORIDE 98 MMOL/L 2012 Unknown COMPREHENSIVE METABOLIC 13098 BILI TOT 0.4 MG/DL 2012 Unknown COMPREHENSIVE METABOLIC 70404 ALK PHOS 77 U/L 2012 Unknown COMPREHENSIVE METABOLIC 66732 SODIUM 139 MMOL/L 09/25 Unknown COMPREHENSIVE METABOLIC 33777 CREATININE 0.86 MG/DL 09/10 Unknown COMPREHENSIVE METABOLIC 32351 CALCIUM 9.5 MG/DL 2012 Unknown COMPREHENSIVE METABOLIC 08569 POTASSIUM 3.8 MMOL/L 09/25 Unknown COMPREHENSIVE METABOLIC 49012 PROT TOT 6.8 GM/DL 2012 Unknown COMPREHENSIVE METABOLIC 36120 Glucose 91 MG/DL 2012 Unknown COMPREHENSIVE METABOLIC 06921 BICARB 32 MMOL/L 2012 Unknown COMPREHENSIVE METABOLIC 56340 ANION GAP 9 MEQ/L 2012 Unknown FREE T4 31099 FREE T4 0.98 NG/DL 09/25/2012 Unknown THYROID STIMULATING HORMONE 23392 TSH 1.736 uIU/ML 09/25/2012 Unknown C-REACTIVE PROTEIN (CRP) QUANT 13872 CRP 2.3 MG/DL 09/25/2012 Unknown COMPLETE BLOOD COUNT [id number] WBC 11.9 10e9/L 013 Unknown COMPLETE BLOOD COUNT 8884768 RBC 4.87 10e12/L 2012 Unknown COMPLETE BLOOD COUNT 2915061 HGB 15.1 g/dL 3 Unknown COMPLETE BLOOD COUNT 9923687 HCT DET 44.8 % 3 Unknown COMPLETE BLOOD COUNT 5027224 MCV 92.0 fL 3 Unknown COMPLETE BLOOD COUNT 9131123 MCH 31.0 pg 3 Unknown COMPLETE BLOOD COUNT 1616415 MCHC 33.7 g/dL 3 Unknown COMPLETE BLOOD COUNT 6005558 PLT 343 10e9/L 09/25/19 13 Unknown COMPLETE BLOOD COUNT 2295961 MPV 9.0 fL 3 Unknown COMPLETE BLOOD COUNT 9290827 CADEN % 68.2 % 3 Unknown COMPLETE BLOOD COUNT 5381988 LY % 22.4 % 3 Unknown COMPLETE BLOOD COUNT [id number] MON % 6.4 % 3 Unknown COMPLETE BLOOD COUNT 7266575 EOS % 2.7 % 3 Unknown COMPLETE BLOOD COUNT [id number] BASO % 0.3 % 3 Unknown COMPLETE BLOOD COUNT 0622074 RDW 13.8 % 3 Unknown COMPLETE BLOOD COUNT 9906331 ABS CADEN 8.12 10e9/L 013 Unknown COMPLETE BLOOD COUNT 7521561 ABS LYMPH 2.67 10e9/L 013 Unknown COMPLETE BLOOD COUNT 0625614 ABS MONO 0.76 10e9/L 013 Unknown COMPLETE BLOOD COUNT [id number] ABS EOS 0.32 10e9/L 013 Unknown COMPLETE BLOOD COUNT 7578071 ABS BASO 0.04 10e9/L 013 Unknown COMPLETE BLOOD COUNT 9999229 RDW-SD 45.6 fL 3 Unknown GFR CALC 5926736 GFR AA >60 ML/MIN 09/25/2012 Unknown GFR CALC 2057184 GFR NON-AA >60 ML/MIN 09/25/2012 Unknown ERYTHROCYTE SEDIMENTATION RATE 30963 ESR 19 MM/HR 05/06/2012 Unknown VITAMIN B 12 FOLIC ACID 81192|91228 VIT B 12 922 PG/ML 04/11 Unknown VITAMIN B 12 FOLIC ACID 74472|05268 FOLIC ACID 13.6 NG/ML Unknown URIC ACID 58227 URIC ACID 7.8 MG/DL 05/06/2012 Unknown COMPLETE BLOOD COUNT 95351 WBC 11.9 10e9/L 012 Unknown COMPLETE BLOOD COUNT 23312 RBC 5.30 10e12/L 2011 Unknown COMPLETE BLOOD COUNT 57126 HGB 16.6 g/dL 2 Unknown COMPLETE BLOOD COUNT 08675 HCT DET 47.2 % 2 Unknown COMPLETE BLOOD COUNT 79889 MCV 89.1 fL 2 Unknown COMPLETE BLOOD COUNT 61088 MCH 31.3 pg 2 Unknown COMPLETE BLOOD COUNT 02207 MCHC 35.2 g/dL 2 Unknown COMPLETE BLOOD COUNT 57678 PLT 362 10e9/L 05/06/20 12 Unknown COMPLETE BLOOD COUNT 60756 MPV 9.4 fL 2 Unknown COMPLETE BLOOD COUNT 83297 CADEN % 68.2 % 2 Unknown COMPLETE BLOOD COUNT 53355 LY % 22.0 % 2 Unknown COMPLETE BLOOD COUNT 88505 MON % 6.9 % 2 Unknown COMPLETE BLOOD COUNT 85763 EOS % 2.6 % 2 Unknown COMPLETE BLOOD COUNT 63068 BASO % 0.3 % 2 Unknown COMPLETE BLOOD COUNT 80611 RDW 12.8 % 2 Unknown COMPLETE BLOOD COUNT 78509 ABS CADEN 8.12 10e9/L 012 Unknown COMPLETE BLOOD COUNT 12928 ABS LYMPH 2.62 10e9/L 012 Unknown COMPLETE BLOOD COUNT 05469 ABS MONO 0.82 10e9/L 012 Unknown COMPLETE BLOOD COUNT 79965 ABS EOS 0.31 10e9/L 012 Unknown COMPLETE BLOOD COUNT 24010 ABS BASO 0.04 10e9/L 012 Unknown COMPLETE BLOOD COUNT 45481 RDW-SD 41.5 fL 2 Unknown GFR CALC 3701465 GFR AA >60 ML/MIN 05/06/2012 Unknown GFR CALC 7647739 GFR NON-AA 58.0L ML/MIN 05/06/2012 Unkno wn FREE T4 68407 FREE T4 1.15 NG/DL 05/06/2012 Unknown THYROID STIMULATING HORMONE 09710 TSH 1.568 uIU/ML 05/06/2012 Unknown COMPREHENSIVE METABOLIC 69397 AST 20 U/L 2011 Unknown COMPREHENSIVE METABOLIC 19059 ALT 12 IU/L 2011 Unknown COMPREHENSIVE METABOLIC 84006 BUN 20 MG/DL 2011 Unknown COMPREHENSIVE METABOLIC 44859 ALBUMIN 4.5 GM/DL 2011 Unknown COMPREHENSIVE METABOLIC 94502 CHLORIDE 91 MMOL/L 2011 Unknown COMPREHENSIVE METABOLIC 33676 BILI TOT 0.4 MG/DL 2011 Unknown COMPREHENSIVE METABOLIC 54379 ALK PHOS 73 U/L 2011 Unknown COMPREHENSIVE METABOLIC 32609 SODIUM 139 MMOL/L 05/06 Unknown COMPREHENSIVE METABOLIC 92257 CREATININE 1.02 MG/DL 04/11 Unknown COMPREHENSIVE METABOLIC 79796 CALCIUM 9.7 MG/DL 2011 Unknown COMPREHENSIVE METABOLIC 22079 POTASSIUM 3.1 MMOL/L 05/06 Unknown COMPREHENSIVE METABOLIC 67401 PROT TOT 7.3 GM/DL 2011 Unknown COMPREHENSIVE METABOLIC 91164 Glucose 118 MG/DL 2011 Unknown COMPREHENSIVE METABOLIC 36379 BICARB 33 MMOL/L 2011 Unknown COMPREHENSIVE METABOLIC 51023 ANION GAP 15 MEQ/L 2011 Unknown Procedures Procedure Codes Date COMPREHEN METABOLIC PANEL CPT-4: 47262 02/12/2020 A1C HPLC CPT-4: 11062 02/12/2020 ROUTINE VENIPUNCTURE CPT-4: 45107 09/29/2019 URINALYSIS NONAUTO W/O SCOPE CPT-4: 40811 09/29/2019 COMPREHEN METABOLIC PANEL CPT-4: 16391 09/29/2019 LIPID PANEL CPT-4: 41983 09/29/2019 A1C HPLC CPT-4: 63678 09/29/2019 ASSAY OF FREE THYROXINE CPT-4: 88449 09/29/2019 ASSAY THYROID STIM HORMONE CPT-4: 06770 09/29/2019 COMPLETE CBC W/AUTO DIFF WBC CPT-4: 06809 09/29/2019 URINALYSIS NONAUTO W/O SCOPE CPT-4: 85273 09/30/2018 MICROALBUMIN QUANTITATIVE CPT-4: 38165 09/30/2018 CEFTRIAXONE SODIUM INJECTION CPT-4: J0696 06/19/2018 THER/PROPH/DIAG INJ SC/IM CPT-4: 19527 06/19/2018 CEFTRIAXONE SODIUM INJECTION CPT-4: J0696 06/17/2018 THER/PROPH/DIAG INJ SC/IM CPT-4: 90791 06/17/2018 THER/PROPH/DIAG INJ SC/IM CPT-4: 01527 05/16/2018 KETOROLAC TROMETHAMINE INJ CPT-4: J1885 05/16/2018 ONDANSETRON HCL INJECTION CPT-4: J2405 05/16/2018 THER/PROPH/DIAG INJ SC/IM CPT-4: 76360 05/16/2018 ROUTINE VENIPUNCTURE CPT-4: 51980 03/20/2018 COMPREHEN METABOLIC PANEL CPT-4: 02761 03/20/2018 DEXAMETHASONE SODIUM PHOS CPT-4: J1100 02/11/2018 THER/PROPH/DIAG INJ SC/IM CPT-4: 07382 02/11/2018 TRIAMCINOLONE ACET INJ NOS CPT-4: J3301 02/11/2018 CEFTRIAXONE SODIUM INJECTION CPT-4: J0696 02/01/2018 THER/PROPH/DIAG INJ SC/IM CPT-4: 73870 02/01/2018 CEFTRIAXONE SODIUM INJECTION CPT-4: J0696 01/30/2018 THER/PROPH/DIAG INJ SC/IM CPT-4: 72302 01/30/2018 ROUTINE VENIPUNCTURE CPT-4: 92909 12/10/2017 ASSAY OF FREE THYROXINE CPT-4: 30823 12/10/2017 ASSAY THYROID STIM HORMONE CPT-4: 62693 12/10/2017 COMPREHEN METABOLIC PANEL CPT-4: 73429 12/10/2017 COMPLETE CBC W/AUTO DIFF WBC CPT-4: 47771 12/10/2017 LIPID PANEL CPT-4: 30904 12/10/2017 A1C HPLC CPT-4: 99343 12/10/2017 CEFTRIAXONE SODIUM INJECTION CPT-4: J0696 12/10/2017 THER/PROPH/DIAG INJ SC/IM CPT-4: 86340 12/10/2017 CEFTRIAXONE SODIUM INJECTION CPT-4: J0696 12/07/2017 THER/PROPH/DIAG INJ SC/IM CPT-4: 94307 12/07/2017 DEXAMETHASONE SODIUM PHOS CPT-4: J1100 12/07/2017 THER/PROPH/DIAG INJ SC/IM CPT-4: 87473 12/07/2017 CEFTRIAXONE SODIUM INJECTION CPT-4: J0696 10/08/2017 THER/PROPH/DIAG INJ SC/IM CPT-4: 41074 10/08/2017 CEFTRIAXONE SODIUM INJECTION CPT-4: J0696 09/21/2017 THER/PROPH/DIAG INJ SC/IM CPT-4: 58768 09/21/2017 CEFTRIAXONE SODIUM INJECTION CPT-4: J0696 09/20/2017 THER/PROPH/DIAG INJ SC/IM CPT-4: 77248 09/20/2017 REMOVAL OF NAIL PLATE CPT-4: 68505 08/29/2017 THER/PROPH/DIAG INJ SC/IM CPT-4: 93095 08/29/2017 TRIAMCINOLONE ACET INJ NOS CPT-4: J3301 08/29/2017 CEFTRIAXONE SODIUM INJECTION CPT-4: J0696 08/29/2017 THER/PROPH/DIAG INJ SC/IM CPT-4: 37747 08/29/2017 DESTRUCT PREMALG LESION (Cryosurgery) CPT-4: 12307 ROUTINE VENIPUNCTURE CPT-4: 36825 06/27/2017 ASSAY OF FREE THYROXINE CPT-4: 51530 06/27/2017 ASSAY THYROID STIM HORMONE CPT-4: 88847 06/27/2017 COMPREHEN METABOLIC PANEL CPT-4: 59148 06/27/2017 COMPLETE CBC W/AUTO DIFF WBC CPT-4: 05917 06/27/2017 EXC TR-EXT B9+REECE 0.5 CM< CPT-4: 91352 01/24/2017 THER/PROPH/DIAG INJ SC/IM CPT-4: 60281 08/02/2016 DEXAMETHASONE SODIUM PHOS CPT-4: J1100 08/02/2016 DESTRUCT PREMALG LESION (Cryosurgery) CPT-4: 30654 EXC TR-EXT B9+REECE 0.5 CM< CPT-4: 88720 08/01/2016 AEROBIC WOUND CULTURE & STN CPT-4: 44918 07/06/2016 CEFTRIAXONE SODIUM INJECTION CPT-4: J0696 05/25/2016 THER/PROPH/DIAG INJ SC/IM CPT-4: 85132 05/25/2016 THER/PROPH/DIAG INJ SC/IM CPT-4: 40767 04/26/2016 DEXAMETHASONE SODIUM PHOS CPT-4: J1100 04/26/2016 CEFTRIAXONE SODIUM INJECTION CPT-4: J0696 04/26/2016 THER/PROPH/DIAG INJ SC/IM CPT-4: 97240 04/26/2016 THER/PROPH/DIAG INJ SC/IM CPT-4: 64960 02/09/2016 TRIAMCINOLONE ACET INJ NOS CPT-4: J3301 02/09/2016 URINALYSIS NONAUTO W/O SCOPE CPT-4: 00022 01/24/2016 URINE CULTURE/ COLONY COUNT CPT-4: 43080 01/24/2016 THER/PROPH/DIAG INJ SC/IM CPT-4: 79638 12/08/2015 TRIAMCINOLONE ACET INJ NOS CPT-4: J3301 12/08/2015 THER/PROPH/DIAG INJ SC/IM CPT-4: 27435 10/07/2015 TRIAMCINOLONE ACET INJ NOS CPT-4: J3301 10/07/2015 DESTRUCT PREMALG LESION (Cryosurgery) CPT-4: 10899 THER/PROPH/DIAG INJ SC/IM CPT-4: 41646 03/16/2015 METHYLPREDNISOLONE 40 MG INJ CPT-4: J1030 03/16/2015 DESTRUCT PREMALG LESION (Cryosurgery) CPT-4: 97955 THER/PROPH/DIAG INJ SC/IM CPT-4: 52862 09/11/2014 METHYLPREDNISOLONE 40 MG INJ CPT-4: J1030 09/11/2014 TRIAMCINOLONE ACET INJ NOS CPT-4: J3301 09/11/2014 CEFTRIAXONE SODIUM INJECTION CPT-4: J0696 09/11/2014 THER/PROPH/DIAG INJ SC/IM CPT-4: 42574 09/11/2014 ROUTINE VENIPUNCTURE CPT-4: 73466 08/27/2014 COMPREHEN METABOLIC PANEL CPT-4: 24837 08/27/2014 COMPLETE CBC W/AUTO DIFF WBC CPT-4: 12890 08/27/2014 LIPID PANEL CPT-4: 97038 08/27/2014 ROUTINE VENIPUNCTURE CPT-4: 64500 07/21/2014 ASSAY OF AMYLASE CPT-4: 34058 07/21/2014 ASSAY OF LIPASE CPT-4: 18505 07/21/2014 THER/PROPH/DIAG INJ SC/IM CPT-4: 42728 07/15/2014 TRIAMCINOLONE ACET INJ NOS CPT-4: J3301 07/15/2014 ROUTINE VENIPUNCTURE CPT-4: 65987 05/14/2014 ASSAY OF FREE THYROXINE CPT-4: 55346 05/14/2014 ASSAY THYROID STIM HORMONE CPT-4: 39855 05/14/2014 COMPREHEN METABOLIC PANEL CPT-4: 11642 05/14/2014 COMPLETE CBC W/AUTO DIFF WBC CPT-4: 40164 05/14/2014 LIPID PANEL CPT-4: 09883 05/14/2014 CEFTRIAXONE SODIUM INJECTION CPT-4: J0696 04/21/2014 THER/PROPH/DIAG INJ SC/IM CPT-4: 24848 04/21/2014 THER/PROPH/DIAG INJ SC/IM CPT-4: 91547 04/21/2014 TRIAMCINOLONE ACET INJ NOS CPT-4: J3301 04/21/2014 THER/PROPH/DIAG INJ SC/IM CPT-4: 22517 03/04/2014 METHYLPREDNISOLONE 40 MG INJ CPT-4: J1030 03/04/2014 TRIAMCINOLONE ACET INJ NOS CPT-4: J3301 03/04/2014 CEFTRIAXONE SODIUM INJECTION CPT-4: J0696 03/04/2014 THER/PROPH/DIAG INJ SC/IM CPT-4: 94808 03/04/2014 TDAP VACCINE 7 YRS/> IM CPT-4: 31850 02/27/2014 IMMUNIZATION ADMIN CPT-4: 83827 02/27/2014 DESTRUCT PREMALG LESION (Cryosurgery) CPT-4: 97924 DESTRUCT PREMALG LES 2-14 CPT-4: 79702 01/13/2014 THER/PROPH/DIAG INJ SC/IM CPT-4: 82457 10/21/2013 METHYLPREDNISOLONE 40 MG INJ CPT-4: J1030 10/21/2013 TRIAMCINOLONE ACET INJ NOS CPT-4: J3301 10/21/2013 CEFTRIAXONE SODIUM INJECTION CPT-4: J0696 08/27/2013 THER/PROPH/DIAG INJ SC/IM CPT-4: 38162 08/27/2013 THER/PROPH/DIAG INJ SC/IM CPT-4: 96291 08/27/2013 METHYLPREDNISOLONE 40 MG INJ CPT-4: J1030 08/27/2013 TRIAMCINOLONE ACET INJ NOS CPT-4: J3301 08/27/2013 THER/PROPH/DIAG INJ SC/IM CPT-4: 78018 06/23/2013 METHYLPREDNISOLONE 40 MG INJ CPT-4: J1030 06/23/2013 TRIAMCINOLONE ACET INJ NOS CPT-4: J3301 06/23/2013 THER/PROPH/DIAG INJ SC/IM CPT-4: 07332 05/26/2013 METHYLPREDNISOLONE 40 MG INJ CPT-4: J1030 05/26/2013 TRIAMCINOLONE ACET INJ NOS CPT-4: J3301 05/26/2013 ROUTINE VENIPUNCTURE CPT-4: 61147 03/05/2013 ASSAY OF FREE THYROXINE CPT-4: 91028 03/05/2013 ASSAY THYROID STIM HORMONE CPT-4: 22423 03/05/2013 COMPREHEN METABOLIC PANEL CPT-4: 31259 03/05/2013 COMPLETE CBC W/AUTO DIFF WBC CPT-4: 95177 03/05/2013 A1C GLYCOSYLATED HEMOGLOBIN TEST CPT-4: 22193 013 DRAIN/INJECT JOINT/BURSA CPT-4: 48934 12/04/2012 METHYLPREDNISOLONE 40 MG INJ CPT-4: J1030 12/04/2012 TRIAMCINOLONE ACET INJ NOS CPT-4: J3301 12/04/2012 CEFTRIAXONE SODIUM INJECTION CPT-4: J0696 11/21/2012 THER/PROPH/DIAG INJ SC/IM CPT-4: 23977 11/21/2012 THER/PROPH/DIAG INJ SC/IM CPT-4: 09150 10/14/2012 METHYLPREDNISOLONE 40 MG INJ CPT-4: J1030 10/14/2012 TRIAMCINOLONE ACET INJ NOS CPT-4: J3301 10/14/2012 URINALYSIS NONAUTO W/O SCOPE CPT-4: 44838 09/27/2012 ROUTINE VENIPUNCTURE CPT-4: 21499 09/25/2012 ASSAY OF FREE THYROXINE CPT-4: 17052 09/25/2012 ASSAY THYROID STIM HORMONE CPT-4: 52494 09/25/2012 COMPREHEN METABOLIC PANEL CPT-4: 40273 09/25/2012 COMPLETE CBC W/AUTO DIFF WBC CPT-4: 28383 09/25/2012 C-REACTIVE PROTEIN CPT-4: 56795 09/25/2012 THER/PROPH/DIAG INJ SC/IM CPT-4: 58282 08/29/2012 METHYLPREDNISOLONE 40 MG INJ CPT-4: J1030 08/29/2012 TRIAMCINOLONE ACET INJ NOS CPT-4: J3301 08/29/2012 DESTRUCT PREMALG LESION (Cryosurgery) CPT-4: 94199 THER/PROPH/DIAG INJ SC/IM CPT-4: 20585 05/06/2012 METHYLPREDNISOLONE 40 MG INJ CPT-4: J1030 05/06/2012 TRIAMCINOLONE ACET INJ NOS CPT-4: J3301 05/06/2012 VITAMIN B 12 FOLIC ACID CPT-4: 34551|50645 05/06/2012 RBC SED RATE AUTOMATED CPT-4: 79518 05/06/2012 ROUTINE VENIPUNCTURE CPT-4: 22935 05/06/2012 ASSAY OF FREE THYROXINE CPT-4: 64576 05/06/2012 ASSAY THYROID STIM HORMONE CPT-4: 92219 05/06/2012 COMPREHEN METABOLIC PANEL CPT-4: 21919 05/06/2012 COMPLETE CBC W/AUTO DIFF WBC CPT-4: 13718 05/06/2012 ASSAY OF BLOOD/URIC ACID CPT-4: 57706 05/06/2012 THER/PROPH/DIAG INJ SC/IM CPT-4: 10376 03/19/2012 KETOROLAC TROMETHAMINE INJ CPT-4: J1885 03/19/2012 KETOROLAC TROMETHAMINE INJ CPT-4: J1885 01/30/2012 THER/PROPH/DIAG INJ SC/IM CPT-4: 86507 01/30/2012 PROMETHAZINE HCL INJECTION CPT-4: J2550 01/30/2012 THER/PROPH/DIAG INJ SC/IM CPT-4: 90922 01/24/2012 METHYLPREDNISOLONE 40 MG INJ CPT-4: J1030 01/24/2012 TRIAMCINOLONE ACET INJ NOS CPT-4: J3301 01/24/2012 THER/PROPH/DIAG INJ SC/IM CPT-4: 26830 09/13/2011 KETOROLAC TROMETHAMINE INJ CPT-4: J1885 09/13/2011 THER/PROPH/DIAG INJ SC/IM CPT-4: 57525 09/13/2011 PROMETHAZINE HCL INJECTION CPT-4: J2550 09/13/2011 CEFTRIAXONE SODIUM INJECTION CPT-4: J0696 07/20/2011 THER/PROPH/DIAG INJ SC/IM CPT-4: 30325 07/20/2011 THER/PROPH/DIAG INJ SC/IM CPT-4: 51127 07/20/2011 METHYLPREDNISOLONE INJECTION CPT-4: J2930 07/20/2011 URINALYSIS NONAUTO W/O SCOPE CPT-4: 29160 05/09/2011 CEFTRIAXONE SODIUM INJECTION CPT-4: J0696 05/09/2011 THER/PROPH/DIAG INJ SC/IM CPT-4: 00857 05/09/2011 THER/PROPH/DIAG INJ SC/IM CPT-4: 78767 05/09/2011 PROMETHAZINE HCL INJECTION CPT-4: J2550 05/09/2011 HYDRATION IV INFUSION INIT CPT-4: 76743 05/09/2011 DESTRUCT PREMALG LESION (Cryosurgery) CPT-4: 81681 DESTRUCT PREMALG LES 2-14 CPT-4: 65404 07/19/2010 REMOVAL OF SKIN TAGS <W/15 CPT-4: 47530 05/30/2010 THER/PROPH/DIAG INJ SC/IM CPT-4: 81741 04/05/2010 CEFTRIAXONE SODIUM INJECTION CPT-4: J0696 04/05/2010 TRIAMCINOLONE ACET INJ NOS CPT-4: J3301 04/05/2010 METHYLPREDNISOLONE 40 MG INJ CPT-4: J1030 04/05/2010 THER/PROPH/DIAG INJ SC/IM CPT-4: 33789 04/05/2010 TRIAMCINOLONE ACET INJ NOS CPT-4: J3301 03/09/2010 METHYLPREDNISOLONE 40 MG INJ CPT-4: J1030 03/09/2010 THER/PROPH/DIAG INJ SC/IM CPT-4: 51965 03/09/2010 THER/PROPH/DIAG INJ SC/IM CPT-4: 07568 03/09/2010 CEFTRIAXONE SODIUM INJECTION CPT-4: J0696 03/09/2010 Vital Signs Date Vital 03/04/2020 Blood Pressure 1: 126/84 Code: 8480-6 Heart Rate 1: 76 bpm Respiratory Rate: 20 bpm SpO2: 95% Temperature: 36.6 (C) / 97.9 (F) We ight: 02/12/2020 Heart Rate 1: 80 bpm Respiratory Rate: 20 bpm SpO2: 96 % Temperature: 36.4 (C) / 97.6 (F) Weight: 220 lbs 01/13/2020 Blood Pressure 1: 144/94 Code: 8480-6 Heart Rate 1: 76 bpm Respiratory Rate: 20 bpm SpO2: 95% Temperature: 36.6 (C) / 97.8 (F) We ight: 213 lbs 11/20/2019 Blood Pressure 1: 130/82 Code: 8480-6 Heart Rate 1: 88 bpm Height: Respiratory Rate: 20 bpm Temperature: 36.9 (C) / 98.4 (F) Weight: 10/07/2019 Blood Pressure 1: 134/82 Code: 8480-6 Heart Rate 1: 105 bpm Respiratory Rate: 17 bpm SpO2: 96% Temperature: 36.8 (C) / 98.2 (F) We ight: 198 lbs 09/30/2019 Blood Pressure 1: 132/80 Code: 8480-6 BMI: 35.8 Code: 74682-3 Heart Rate 1: 88 bpm Height: 5'4" Respiratory Rate: 20 bpm SpO2: 95% Tempera ture: 36.9 (C) / 98.5 (F) Weight: 210 lbs 05/28/2019 Blood Pressure 1: 126/82 Code: 8480-6 BMI: 35.0 Code: 71393-1 Heart Rate 1: 88 bpm Height: 5'4" Respiratory Rate: 20 bpm SpO2: 95% Tempera ture: 36.8 (C) / 98.2 (F) Weight: 204 lbs 05/19/2019 Blood Pressure 1: 138/92 Code: 8480-6 Heart Rate 1: 91 bpm SpO2: 98% Temperature: 37.0 (C) / 98.6 (F) 01/22/2019 Blood Pressure 1: 126/74 Code: 8480-6 Heart Rate 1: 76 bpm Respiratory Rate: 20 bpm SpO2: 95% Temperature: 36.8 (C) / 98.2 (F) We ight: 222 lbs 09/30/2018 Blood Pressure 1: 128/90 Code: 8480-6 BMI: 37.2 Code: 51063-8 Heart Rate 1: 84 bpm Height: 5'4" Respiratory Rate: 20 bpm SpO2: 95% Tempera ture: 36.6 (C) / 97.8 (F) Weight: 217 lbs 08/27/2018 Blood Pressure 1: 128/88 Code: 8480-6 BMI: 38.3 Code: 32942-2 Heart Rate 1: 84 bpm Height: 5'4" Respiratory Rate: 20 bpm Temperature: 36 .6 (C) / 97.8 (F) Weight: 223 lbs 08/09/2018 Blood Pressure 1: 142/94 Code: 8480-6 Heart Rate 1: 88 bpm Respiratory Rate: 20 bpm SpO2: 95% Temperature: 36.7 (C) / 98.1 (F) We ight: 07/22/2018 Blood Pressure 1: 142/86 Code: 8480-6 Heart Rate 1: 88 bpm Height: 5'4" Respiratory Rate: 20 bpm Temperature: 36.5 (C) / 97.7 (F) We ight: 06/17/2018 Blood Pressure 1: 132/88 Code: 8480-6 Heart Rate 1: 93 bpm Respiratory Rate: 20 bpm SpO2: 96% Temperature: 36.3 (C) / 97.4 (F) We ight: 05/16/2018 Blood Pressure 1: 142/88 Code: 8480-6 Heart Rate 1: 80 bpm Height: 5'4" Respiratory Rate: 20 bpm Temperature: 36.6 (C) / 97.8 (F) We ight: 03/20/2018 Blood Pressure 1: 122/78 Code: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 [facility] CPT-4: 06577 05/19/2019 ([id number]) OFFICE/OUTPATIENT VISIT EST Diagnosis: Essential (primary) hypertension[ICD10: I10] Diagnosis: Type 2 diabetes mellitus with hyperglycemia[ICD10: E11.65] Diagnosis: Intervertebral disc disorders with radiculopathy, 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] Diagnosis: Hormone replacement therapy[ICD10: Z79.890] María Elena APPIAH [facility] CPT-4: 84911 01/22/2019 ([id number]) OFFICE/OUTPATIENT VISIT EST Diagnosis: Essential (primary) hypertension[ICD10: I10] Diagnosis: Type 2 diabetes mellitus with hyperglycemia[ICD10: E11.65] María Elena APPIAH [facility] CPT-4: 50752 09/30/2018 ([id number]) OFFICE/OUTPATIENT VISIT EST Diagnosis: Pain in left elbow[ICD10: M25.522] Diagnosis: Acute stress reaction[ICD10: F43.0] Diagnosis: Primary insomnia[ICD10: F51.01] Diagnosis: Abnormal weight gain[ICD10: R63.5] María Elena APPIAH [facility] CPT-4: 28069 08/27/2018 ([id number]) OFFICE/OUTPATIENT VISIT EST Diagnosis: Acute recurrent sinusitis, 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: J01.91] Diagnosis: Follicular disorder, 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: L73.9] Diagnosis: Tinea corporis[ICD10: B35.4] María Elena APPIAH [facility] CPT-4: 49744 08/09/2018 ([id number]) OFFICE/OUTPATIENT VISIT EST Diagnosis: Tinea corporis[ICD10: B35.4] Diagnosis: Anxiety disorder, 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: F41.9] Diagnosis: Menopausal and female climacteric states[ICD10: N95.1] María Elena APPIAH [facility] CPT-4: 76512 07/22/2018 ([id number]) NURSE/OUTPATIENT VISIT EST Diagnosis: Cellulitis of right toe[ICD10: L03.031] María Elena APPIAH [facility] CPT-4: 72843 06/19/2018 ([id number]) OFFICE/OUTPATIENT VISIT EST Diagnosis: Cellulitis of right toe[ICD10: L03.031] Kathleenfloyd Zuniga KYLAH APPIAH [facility] CPT-4: 27476 06/17/2018 ([id number]) OFFICE/OUTPATIENT VISIT EST Diagnosis: Migraine without aura, intractable, without status migrainosus[ICD10: G43.019] Diagnosis: Zoster without complications[ICD10: B02.9] Kathleen APPIAH DO [facility] CPT-4: 49174 05/16/2018 ([id number]) OFFICE/OUTPATIENT VISIT EST Diagnosis: Cellulitis of right lower limb[ICD10: L03.115] Kathleen APPIAH DO [facility] CPT-4: 28599 03/20/2018 ([id number]) OFFICE/OUTPATIENT VISIT EST Diagnosis: Cellulitis of right lower limb[ICD10: L03.115] Kathleen APPIAH DO [facility] CPT-4: 72668 03/18/2018 ([id number]) OFFICE/OUTPATIENT VISIT EST Diagnosis: Cellulitis of right lower limb[ICD10: L03.115] Kathleen APPIAH DO [facility] CPT-4: 46406 03/15/2018 ([id number]) OFFICE/OUTPATIENT VISIT EST Diagnosis: Acute sinusitis, 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: J01.90] Kathleen APPIAH DO [facility] CPT-4: 65355 02/11/2018 ([id number]) NURSE/OUTPATIENT VISIT EST Diagnosis: Otitis media, unspecified, right ear[ICD10: H66.91] María Elena APPIAH DO [facility] CPT-4: 21549 02/01/2018 ([id number]) OFFICE/OUTPATIENT VISIT EST Diagnosis: Acute suppurative otitis media without spontaneous rupture of ear drum, left ear[ICD10: H66.002] Diagnosis: Abnormal weight gain[ICD10: R63.5] Diagnosis: Intervertebral disc disorders with radiculopathy, 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] Kathleen APPIAH DO [facility] CPT-4: 99 214 01/30/2018 ([id number]) PREV VISIT EST AGE 40-64 Diagnosis: Encounter for general adult medical examination without abnormal findings[ICD10: Z00.00] Diagnosis: Essential (primary) hypertension[ICD10: I10] Diagnosis: Mixed hyperlipidemia[ICD10: E78.2] Diagnosis: Type 2 diabetes mellitus with hyperglycemia[ICD10: E11.65] Diagnosis: 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] María Elena APPIAH DO [facility] CPT-4: 38211 12/18/2017 ([id number]) OFFICE/OUTPATIENT VISIT EST Diagnosis: Cellulitis of right toe[ICD10: L03.031] Diagnosis: Mixed hyperlipidemia[ICD10: E78.2] Diagnosis: Essential (primary) hypertension[ICD10: I10] Diagnosis: Hyperglycemia, 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: R73.9] Diagnosis: Nontoxic goiter, 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 CPT-4: 18264 09/21/2017 ([id number]) OFFICE/OUTPATIENT VISIT EST Diagnosis: Insomnia, 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: G47.00] Diagnosis: Major depressive disorder, single episode, 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: F32.9] Diagnosis: Anxiety disorder, 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: F41.9] Diagnosis: Cellulitis of left toe[ICD10: L03.032] Diagnosis: Snoring[ICD10: R06.83] Kathleen APPIAH DO [facility] CPT-4: 41766 09/20/2017 ([id number]) OFFICE/OUTPATIENT VISIT EST Diagnosis: Cellulitis of left toe[ICD10: L03.032] María Elena APPIAH [employer] [facility] CPT-4: 42476 07/19/2017 OFFICE/OUTPATIENT VISIT EST Diagnosis: Chronic sinusitis, 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: J32.9] Diagnosis: Generalized hyperhidrosis[ICD10: R61] Kathleen APPIAH DO [facility] CPT-4: 49657 06/27/2017 ([id number]) OFFICE/OUTPATIENT VISIT EST Diagnosis: Intervertebral disc disorders with radiculopathy, 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] Diagnosis: Primary insomnia[ICD10: F51.01] Diagnosis: Other fatigue[ICD10: R53.83] María Elena ValdesJj IGNACIO [facility] CPT-4: 78157 04/10/2017 ([id number]) OFFICE/OUTPATIENT VISIT EST Diagnosis: Primary insomnia[ICD10: F51.01] Diagnosis: Localized edema[ICD10: R60.0] Diagnosis: 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] María Elena APPIAH [employer] [facility] CPT-4: 69114 12/13/2016 ([id number]) OFFICE/OUTPATIENT VISIT EST Diagnosis: Primary insomnia[ICD10: F51.01] Diagnosis: Cyanosis[ICD10: R23.0] María Elena Waydawn MARÍA ELENA LucioJj [facility]O [facility] CPT-4: 84604 11/01/2016 ([id number]) PREV VISIT EST AGE 40-64 Diagnosis: Encounter for gynecological examination (general) (routine) without abnormal findings[ICD10: Z01.419] Diagnosis: Encounter for routine child health examination without abnormal findings[ICD10: Z00.129] María Elena Wayyesimaryjane ELLISMARÍA ELENA LucioJj IGNACIO [employer] [facility] CPT-4: 57483 10/17/2016 ([id number]) OFFICE/OUTPATIENT VISIT EST Diagnosis: Other seasonal allergic rhinitis[ICD10: J30.2] María Elena Waltdawn MARÍA ELENA LucioJj IGNACIO [facility] CPT-4: 28253 10/10/2016 ([id number]) OFFICE/OUTPATIENT VISIT EST Diagnosis: Pain in left arm[ICD10: M79.602] Diagnosis: Contact with and (suspected) exposure to potentially hazardous body fluids[ICD10: Z77.21] Diagnosis: 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, 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] Diagnosis: Unspecified open wound, right foot, sequela[ICD10: S91.301S] María Elena APPIAH [employer] [facility] CPT-4: 79983 09/19/2016 ([id number]) OFFICE/OUTPATIENT VISIT EST Diagnosis: Chronic sinusitis, 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: J32.9] Diagnosis: Allergic rhinitis due to pollen[ICD10: J30.1] María Elena APPIAH [employer] [facility] CPT-4: 59494 08/24/2016 ([id number]) OFFICE/OUTPATIENT VISIT EST Diagnosis: Acute bronchitis, 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: J20.9] María Elena APPIAH [employer] [facility] CPT-4: 62883 08/16/2016 ([id number]) OFFICE/OUTPATIENT VISIT EST Diagnosis: Otitis media, unspecified, right ear[ICD10: H66.91] Diagnosis: Acute bronchitis, 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: J20.9] María Elena APPIAH [employer] [facility] CPT-4: 85961 08/10/2016 ([id number]) OFFICE/OUTPATIENT VISIT EST Diagnosis: Acute recurrent sinusitis, 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: J01.91] Diagnosis: Allergic rhinitis due to pollen[ICD10: J30.1] María Elena APPIAH [employer] [facility] CPT-4: 09014 08/02/2016 ([id number]) OFFICE/OUTPATIENT VISIT EST Diagnosis: Pain in unspecified joint[ICD10: M25.50] María Elena APPIAH [employer] [facility] CPT-4: 58845 07/27/2016 OFFICE/OUTPATIENT VISIT EST Diagnosis: 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] Diagnosis: Acute recurrent sinusitis, 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: J01.91] Diagnosis: Other fatigue[ICD10: R53.83] Diagnosis: Primary insomnia[ICD10: F51.01] Diagnosis: Pain in unspecified joint[ICD10: M25.50] María Elena APPIAH [employer] [facility] CPT-4: 08559 07/20/2016 ([id number]) OFFICE/OUTPATIENT VISIT EST Diagnosis: Blister (nonthermal), left great toe, initial encounter[ICD10: S90.422A] Loan APPIAH [employer] [facility] CPT-4: 21542 ([id number]) OFFICE/OUTPATIENT VISIT EST Diagnosis: Acute recurrent sinusitis, 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: J01.91] María Elena APPIAH [employer] [facility] CPT-4: 58657 05/25/2016 ([id number]) OFFICE/OUTPATIENT VISIT EST Diagnosis: Acute sinusitis, 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: J01.90] María Elena APPIAH [employer] [facility] CPT-4: 80600 04/26/2016 ([id number]) OFFICE/OUTPATIENT VISIT EST Diagnosis: Flushing[ICD10: R23.2] Diagnosis: Primary insomnia[ICD10: F51.01] María Elena APPIAH [employer] [facility] CPT-4: 02675 03/02/2016 ([id number]) OFFICE/OUTPATIENT VISIT EST Diagnosis: Other seasonal allergic rhinitis[ICD10: J30.2] Loan APPIAH [employer] [facility] CPT-4: 02694 02/09/2016 ([id number]) OFFICE/OUTPATIENT VISIT EST Diagnosis: Primary insomnia[ICD10: F51.01] Diagnosis: Urinary tract infection, site not specified[ICD10: N39.0] María Elena APPIAH [employer] [facility] CPT-4: 36842 01/24/2016 ([id number]) OFFICE/OUTPATIENT VISIT EST Diagnosis: Other specified disorders of Eustachian tube, bilateral[ICD10: H69.83] Diagnosis: Allergic rhinitis, 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: J30.9] Loan APPIAH [employer] [facility] CPT-4: 80429 12/23/2015 ([id number]) OFFICE/OUTPATIENT VISIT EST Diagnosis: Acute recurrent sinusitis, 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: J01.91] Diagnosis: 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] Diagnosis: Allergic rhinitis, 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: J30.9] María Elena APPIAH DO [facility] CPT-4: 71520 12/08/2015 ([id number]) OFFICE/OUTPATIENT VISIT EST Diagnosis: Allergic rhinitis, 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: J30.9] Diagnosis: Pain in unspecified joint[ICD10: M25.50] María Elena APPIAH DO [facility] CPT-4: 01995 10/07/2015 ([id number]) OFFICE/OUTPATIENT VISIT EST Diagnosis: Essential (primary) hypertension[ICD10: I10] María Elena APPIAH DO [employer] CPT-4: 73590 10/06/2015 OFFICE/OUTPATIENT VISIT EST Diagnosis: Localized enlarged lymph nodes[ICD10: R59.0] Diagnosis: Local infection of the skin and subcutaneous tissue, 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: L08.9] June Felixdaniella APPIAH DO [facility] CPT- 4: 41116 09/14/2015 ([id number]) OFFICE/OUTPATIENT VISIT EST Diagnosis: Essential (primary) hypertension[ICD10: I10] Diagnosis: Actinic keratosis[ICD10: L57.0] María Elena APPIAH DO [facility] CPT-4: 94509 09/07/2015 ([id number]) OFFICE/OUTPATIENT VISIT EST Diagnosis: Essential (primary) hypertension[ICD10: I10] Diagnosis: Acute stress reaction[ICD10: F43.0] María Elena APPIAH [employer] [facility] CPT-4: 68575 08/18/2015 ([id number]) OFFICE/OUTPATIENT VISIT EST Diagnosis: Essential (primary) hypertension[ICD10: I10] María Elena APPIAH DO [employer] CPT-4: 79721 07/07/2015 ([id number]) OFFICE/OUTPATIENT VISIT EST Diagnosis: Essential (primary) hypertension[ICD10: I10] María Elena APPIAH DO [facility] CPT-4: 22756 06/24/2015 ([id number]) OFFICE/OUTPATIENT VISIT EST Diagnosis: Essential (primary) hypertension[ICD10: I10] María Elena APPIAH DO [facility] CPT-4: 03941 06/21/2015 ([id number]) OFFICE/OUTPATIENT VISIT EST Diagnosis: Essential (primary) hypertension[ICD10: I10] Diagnosis: Mixed hyperlipidemia[ICD10: E78.2] Diagnosis: Acute stress reaction[ICD10: F43.0] Diagnosis: Primary insomnia[ICD10: F51.01] María Elena APPIAH [facility] CPT-4: 30587 06/16/2015 ([id number]) OFFICE/OUTPATIENT VISIT EST Diagnosis: INSOMNIA NOS[ICD9: 780.52] Diagnosis: HYPERTENSION[ICD9: 401.9] Diagnosis: Stress reaction[ICD9: 308.9] María Elena APPIAH [facility] CPT-4: 11829 06/02/2015 ([id number]) OFFICE/OUTPATIENT VISIT EST Diagnosis: HYPERTENSION[ICD9: 401.9] Diagnosis: Stress reaction[ICD9: 308.9] María Elena APPIAH [facility] CPT-4: 20514 05/20/2015 ([id number]) OFFICE/OUTPATIENT VISIT EST Diagnosis: Skin lesion[ICD9: 709.9] 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] María Elena APPIAH [facility] CPT-4: 76073 05/10/2015 ([id number]) OFFICE/OUTPATIENT VISIT EST Diagnosis: SINUSITIS, ACUTE[ICD9: 461.9] Diagnosis: ALLERGIC RHINITIS[ICD9: 477.9] Diagnosis: DERMATITIS NOS[ICD9: 692.9] María Elena REHMAN [facility] CPT-4: 76834 03/16/2015 OFFICE/OUTPATIENT VISIT EST Diagnosis: Otitis media[ICD9: 382.9] Diagnosis: SINUSITIS, ACUTE[ICD9: 461.9] June Flores MARÍA ELENA APPIAH [facility] CPT-4: 43007 09/11/2014 ([id number]) OFFICE/OUTPATIENT VISIT EST Diagnosis: HYPERLIPIDEMIA NEC/NOS[ICD9: 272.4] María Elena APPIAH DO [facility] CPT-4: 06671 08/31/2014 ([id number]) OFFICE/OUTPATIENT VISIT EST Diagnosis: - I - HYPERTENSION[ICD9: 401.9] Diagnosis: HYPERLIPIDEMIA NEC/NOS[ICD9: 272.4] María Elena APPIAH DO [facility] CPT-4: 78602 08/27/2014 ([id number]) OFFICE/OUTPATIENT VISIT EST Diagnosis: ABDOMINAL PAIN[ICD9: 789.00] Diagnosis: DYSPEPSIA[ICD9: 536.8] Diagnosis: Thoracic back pain[ICD9: 724.1] María Elena APPIAH DO [facility] CPT-4: 68979 07/21/2014 ([id number]) OFFICE/OUTPATIENT VISIT EST Diagnosis: ALLERGIC RHINITIS[ICD9: 477.9] María Elena APPIAH DO [facility] CPT-4: 47306 07/15/2014 ([id number]) OFFICE/OUTPATIENT VISIT EST Diagnosis: EDEMA[ICD9: 782.3] Diagnosis: Chronic insomnia[ICD9: 780.52] María Elena APPIAH [facility] CPT-4: 38508 05/18/2014 ([id number]) OFFICE/OUTPATIENT VISIT EST Diagnosis: Thyromegaly[ICD9: 240.9] Diagnosis: - I - HYPERTENSION[ICD9: 401.9] Diagnosis: ROUTINE MEDICAL EXAM[ICD9: V70.0] Diagnosis: EDEMA[ICD9: 782.3] María Elena APPIAH DO [facility] CPT-4: 49856 05/14/2014 OFFICE/OUTPATIENT VISIT EST Diagnosis: BRONCHITIS, ACUTE[ICD9: 466.0] Diagnosis: SINUSITIS, ACUTE[ICD9: 461.9] María Elena APPIAH DO [facility] CPT-4: 40404 04/21/2014 OFFICE/OUTPATIENT VISIT EST Diagnosis: SINUSITIS, ACUTE[ICD9: 461.9] June Sandra MARÍA ELENA APPIAH [facility] CPT-4: 99002 03/04/2014 ([id number]) OFFICE/OUTPATIENT VISIT EST Diagnosis: VACCINE FOR TDAP[ICD10: Z23] María Elena APPIAH [facility] CPT-4: 08759 02/27/2014 ([id number]) OFFICE/OUTPATIENT VISIT EST Diagnosis: Seborrheic keratoses, inflamed[ICD9: 702.11] Diagnosis: ACTINIC KERATOSIS[ICD9: 702.0] Diagnosis: INSOMNIA NOS[ICD9: 780.52] María Elena PANDYA [facility] CPT-4: 03213 01/13/2014 OFFICE/OUTPATIENT VISIT EST 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] Diagnosis: ALLERGIC RHINITIS[ICD9: 477.9] Diagnosis: Serous otitis media[ICD9: 381.4] María Elena APPIAH [facility] CPT-4: 03227 12/24/2013 ([id number]) OFFICE/OUTPATIENT VISIT EST Diagnosis: SINUSITIS, ACUTE[ICD9: 461.9] Diagnosis: ALLERGIC RHINITIS[ICD9: 477.9] 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] María Elena APPIAH [facility] CPT-4: 91421 11/12/2013 ([id number]) OFFICE/OUTPATIENT VISIT EST Diagnosis: ALLERGIC RHINITIS[ICD9: 477.9] Diagnosis: SINUSITIS, ACUTE[ICD9: 461.9] María Elena APPIAH [facility] CPT-4: 70363 10/21/2013 ([id number]) OFFICE/OUTPATIENT VISIT EST Diagnosis: ASYMPTOMATIC VARICOSE VEINS[ICD9: 454.9] Diagnosis: INSOMNIA NOS[ICD9: 780.52] María Elena PANDYA [facility] CPT-4: 78647 09/22/2013 OFFICE/OUTPATIENT VISIT EST Diagnosis: SINUSITIS, ACUTE[ICD9: 461.9] June Flores MARÍA ELENA APPIAH [facility] CPT-4: 76218 08/27/2013 ([id number]) OFFICE/OUTPATIENT VISIT EST Diagnosis: CEPHALGIA[ICD9: 784.0] Diagnosis: CEPHALGIA, TENSION[ICD9: 307.81] 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] María Elena APPIAH DO [facility] CPT-4: 17055 08/04/2013 ([id number]) OFFICE/OUTPATIENT VISIT EST Diagnosis: Cervicalgia[ICD9: 723.1] Diagnosis: SPASM OF MUSCLE[ICD9: 728.85] Diagnosis: CEPHALGIA, TENSION[ICD9: 307.81] María Elena APPIAH DO [facility] CPT-4: 83771 07/23/2013 ([id number]) OFFICE/OUTPATIENT VISIT EST 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] Diagnosis: ALLERGIC RHINITIS[ICD9: 477.9] María Elena APPIAH DO [facility] CPT-4: 04389 06/23/2013 ([id number]) OFFICE/OUTPATIENT VISIT EST Diagnosis: ALLERGIC RHINITIS[ICD9: 477.9] Diagnosis: ACUTE SEROUS OTITIS MEDIA[ICD9: 381.01] 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] María Elena APPIAH [facility] CPT-4: 53517 05/26/2013 ([id number]) OFFICE/OUTPATIENT VISIT EST Diagnosis: HYPERTENSION[ICD9: 401.9] Diagnosis: EDEMA[ICD9: 782.3] Diagnosis: Serous otitis media[ICD9: 381.4] María Elena APPIAH [facility] CPT-4: 66385 04/16/2013 ([id number]) OFFICE/OUTPATIENT VISIT EST Diagnosis: SINUSITIS, ACUTE[ICD9: 461.9] Diagnosis: ALLERGIC RHINITIS[ICD9: 477.9] Diagnosis: EDEMA[ICD9: 782.3] Diagnosis: Thyromegaly[ICD9: 240.9] Diagnosis: MALAISE AND FATIGUE[ICD9: 780.79] María Elena APPIAH [facility] CPT-4: 83276 03/05/2013 ([id number]) OFFICE/OUTPATIENT VISIT EST Diagnosis: PAIN, LOWER BACK[ICD9: 724.2] Diagnosis: SPASM OF MUSCLE[ICD9: 728.85] María Elena JUARES LucioJj IGNACIO [facility] CPT-4: 24307 12/23/2012 OFFICE/OUTPATIENT VISIT EST Diagnosis: Low back pain[ICD9: 724.2] Lashawn Hicks KRISTYN PANDYA DO [facility] CPT-4: 35563 12/16/2012 ([id number]) OFFICE/OUTPATIENT VISIT EST Diagnosis: PAIN, LOWER BACK[ICD9: 724.2] Diagnosis: SCIATICA[ICD9: 724.3] Diagnosis: Lumbar herniated disc[ICD9: 722.10] María Elena COLON LucioJj IGNACIO [facility] CPT-4: 20900 12/09/2012 ([id number]) OFFICE/OUTPATIENT VISIT EST Diagnosis: PAIN, LOWER BACK[ICD9: 724.2] Diagnosis: SCIATICA[ICD9: 724.3] Diagnosis: LUMBAR DISC DISPLACEMENT[ICD9: 722.10] María Elena MARIN LucioJj IGNACIO [facility] CPT-4: 54316 12/04/2012 OFFICE/OUTPATIENT VISIT EST Diagnosis: Pneumonia[ICD9: 486] Mary JUARES LucioJj IGNA[facility]IO [facility] CPT-4: 28198 11/22/2012 ([id number]) OFFICE/OUTPATIENT VISIT EST Diagnosis: PNEUMONIA, ORGANISM[ICD9: 486] Diagnosis: Exacerbation of RAD (reactive airway disease)[ICD9: 493.92] María Elena JUARES LucioJj IGNACIO [facility] CPT-4: 84676 11/21/2012 OFFICE/OUTPATIENT VISIT EST Diagnosis: HYPERTENSION[ICD9: 401.9] Diagnosis: Cephalgia[ICD9: 784.0] Lashawn Hicks IGNACIO [facility] CPT-4: 91110 10/29/2012 ([id number]) OFFICE/OUTPATIENT VISIT EST Diagnosis: MALAISE AND FATIGUE[ICD9: 780.79] Diagnosis: ARTHRALGIA-MULTIPLE SITES[ICD9: 719.49] María Elena REED LucioJj IGNA[facility]IO [facility] CPT-4: 89263 10/14/2012 ([id number]) OFFICE/OUTPATIENT VISIT EST Diagnosis: URINARY FREQUENCY[ICD9: 788.41] María Elena APPIAH [facility] CPT-4: 56730 09/27/2012 ([id number]) OFFICE/OUTPATIENT VISIT EST Diagnosis: MALAISE AND FATIGUE[ICD9: 780.79] Diagnosis: ARTHRALGIA-MULTIPLE SITES[ICD9: 719.49] María Elena WAYNDER [facility] CPT-4: 36593 09/25/2012 ([id number]) OFFICE/OUTPATIENT VISIT EST Diagnosis: SINUSITIS, ACUTE[ICD9: 461.9] 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] María Elena APPIAH [facility] CPT-4: 08219 08/29/2012 OFFICE/OUTPATIENT VISIT EST Diagnosis: ACTINIC KERATOSIS[ICD9: 702.0] Diagnosis: Inflamed seborrheic keratosis[ICD9: 702.11] Diagnosis: Skin cancer of face[ICD9: 173.31] Diagnosis: HYPERTENSION[ICD9: 401.9] María Elena WAY NDERose Mary [facility] CPT-4: 81291 08/12/2012 ([id number]) OFFICE/OUTPATIENT VISIT EST Diagnosis: ARTHRALGIA-MULTIPLE SITES[ICD9: 719.49] Diagnosis: GOUT[ICD9: 274.9] Diagnosis: HYPERTENSION[ICD9: 401.9] Diagnosis: Tachycardia[ICD9: 785.0] María Elena ValdesJj FRITZ KARLOS [facility] CPT-4: 68836 05/06/2012 ([id number]) OFFICE/OUTPATIENT VISIT EST Diagnosis: INSOMNIA NOS[ICD9: 780.52] María Elena SIMONS MUMTAZ [facility] CPT-4: 78566 04/03/2012 ([id number]) OFFICE/OUTPATIENT VISIT EST Diagnosis: INSOMNIA NOS[ICD9: 780.52] Diagnosis: HYPERTENSION[ICD9: 401.9] Diagnosis: MIGRAINE NOS/NOT INTRCBL[ICD9: 346.90] María Elena MONTEROLui MARIN Fabiola WAYNDER [facility] CPT-4: 69373 03/19/2012 ([id number]) OFFICE/OUTPATIENT VISIT EST Diagnosis: CELLULITIS[ICD9: 682.9] Diagnosis: Ankle pain[ICD9: 719.47] Diagnosis: HYPERTENSION[ICD9: 401.9] María Elena JUARES LucioJj WALT MOJICARose Mary [facility] CPT-4: 40471 02/20/2012 ([id number]) OFFICE/OUTPATIENT VISIT EST Diagnosis: MIGRAINE NOS/NOT INTRCBL[ICD9: 346.90] Diagnosis: Vomiting[ICD9: 787.03] María Elena Hicks WALTGALINA Bazzi [facility] CPT-4: 30932 01/30/2012 ([id number]) OFFICE/OUTPATIENT VISIT EST Diagnosis: EDEMA[ICD9: 782.3] Diagnosis: HYPERTENSION[ICD9: 401.9] Diagnosis: ALLERGIC RHINITIS[ICD9: 477.9] Diagnosis: ARTHRALGIA-MULTIPLE SITES[ICD9: 719.49] María Elena Hicks [place] [facility] CPT-4: 21997 01/24/2012 ([id number]) OFFICE/OUTPATIENT VISIT EST Diagnosis: SPASM OF MUSCLE[ICD9: 728.85] Diagnosis: Thoracic back pain[ICD9: 724.1] Diagnosis: Cervical pain[ICD9: 723.1] María Elena Hicks KRI[facility]YN [facility] CPT-4: 98912 01/10/2012 OFFICE/OUTPATIENT VISIT EST Diagnosis: PAIN, LOWER BACK[ICD9: 724.2] Diagnosis: LUMBAR DISC DISPLACEMENT[ICD9: 722.10] María Elena Hicks [facility] CPT-4: 07049 12/11/2011 OFFICE/OUTPATIENT VISIT EST Diagnosis: MIGRAINE NOS/NOT INTRCBL[ICD9: 346.90] Diagnosis: SINUSITIS, ACUTE[ICD9: 461.9] María Elena Hicks [facility] CPT-4: 02805 11/09/2011 OFFICE/OUTPATIENT VISIT EST Diagnosis: MIGRAINE NOS/NOT INTRCBL[ICD9: 346.90] Diagnosis: LYMPHADENOPATHY[ICD9: 785.6] [facility]: 04704 09/13/2011 OFFICE/OUTPATIENT VISIT EST Diagnosis: MALAISE AND FATIGUE[ICD9: 780.79] Diagnosis: ARTHRALGIA-MULTIPLE SITES[ICD9: 719.49] María Elena ValdesJj [facility] CPT-4: 69161 08/31/2011 OFFICE/OUTPATIENT VISIT EST Diagnosis: SINUSITIS, ACUTE[ICD9: 461.9] María Elena APPIA[facility] CPT-4: 21945 07/20/2011 OFFICE/OUTPATIENT VISIT EST Diagnosis: HYPERTENSION[ICD9: 401.9] Diagnosis: PAIN, LOWER BACK[ICD9: 724.2] Diagnosis: SPASM OF MUSCLE[ICD9: 728.85] María Elena APPIAH DO [facility] CPT-4: 67523 07/06/2011 OFFICE/OUTPATIENT VISIT EST Diagnosis: MIGRAINE NOS/NOT INTRCBL[ICD9: 346.90] Diagnosis: HYPERTENSION[ICD9: 401.9] María Elena [facility] CPT-4: 88978 05/22/2011 OFFICE/OUTPATIENT VISIT EST Diagnosis: SINUSITIS, ACUTE[ICD9: 461.9] Diagnosis: MIGRAINE NOS/NOT INTRCBL[ICD9: 346.90] Diagnosis: Dehydration[ICD9: 276.51] Diagnosis: Vomiting[ICD9: 787.03] María Elena Waltyesimaryjane MARÍA ELENA LucioJj CIRO Bazzi [facility] CPT-4: 90456 05/09/2011 ([id number]) OFFICE/OUTPATIENT VISIT EST María Elena Ortamaryjane MARLIN UJARED SJj [facility]ALT[facility]ER DO [facility] CPT-4: 33949 02/14/2011 ([id number]) OFFICE/OUTPATIENT VISIT EST María Elena Waltyesimaryjane MARLIN UJARED SJj [facility]END[facility] CPT-4: 36055 02/03/2011 ([id number]) OFFICE/OUTPATIENT VISIT EST María Elena ISAAC UJARED SJj [facility] CPT-4: 82549 01/31/2011 ([id number]) OFFICE/OUTPATIENT VISIT EST María Elena ISAAC TANIA SJj [facility] CPT-4: 95207 01/25/2011 ([id number]) OFFICE/OUTPATIENT VISIT EST María Elena ISAAC UJARED [facility]. [facility] CPT-4: 84467 01/18/2011 ([id number]) OFFICE/OUTPATIENT VISIT EST María Elena MARIN [facility] CPT-4: 58595 11/29/2010 ([id number]) OFFICE/OUTPATIENT VISIT, EST María Elena REED S. [facility] CPT-4: 24038 10/10/2010 ([id number]) OFFICE/OUTPATIENT VISIT, EST María Elena REED [facility] CPT-4: 91164 06/07/2010 ([id number]) OFFICE/OUTPATIENT VISIT, EST María Elena REED [facility] CPT-4: 80348 04/27/2010 ([id number]) OFFICE/OUTPATIENT VISIT, EST María Elena REED S. [facility] [employer] CPT-4: 26244 04/05/2010 ([id number]) OFFICE/OUTPATIENT VISIT, EST María Elena REED [facility] CPT-4: 92258 03/09/2010 ([id number]) OFFICE/OUTPATIENT VISIT, EST María Elena REED [facility] CPT-4: 83347 03/03/2010 ([id number]) OFFICE/OUTPATIENT VISIT, EST María Elena REED [facility] CPT-4: 42674 01/17/2010 ([id number]) PREV VISIT, EST, AGE 40-64 María Elena COLEMAN S. [facility] [employer] CPT-4: 81264 12/27/2009 Plan of Care Planned Activity Notes Codes Status Date Visit Diagnosis Plan: Cellulitis of left foot Discussi on: Doxycycline and Prednisone Continue lasix and potassium Elevate legs Low Na diet To ER this weekend if worsens ICD-9 : 682.7 ICD-10 : L03.116 03/04/2020 Patient Education: doxycycline hyclate- [employer] C[employer] [id number] Completed 03/04/2020 Patient Education: prednisone- [employer] [id number] Completed 03/04/2020 Visit Diagnosis Plan: Lower extremity edema Discussion : discussed that could be r/t dehydration since patient doesn't drink much water. will order cmp, a1c today though and instructed to push water and elevate legs. decrease sodium intake and call office with new or worsening symptoms. ICD-9 : 782.3 ICD-10 : R60.0 02/12/2020 Visit Diagnosis Plan: Type 2 diabetes mellitus with hy perglycemia Discussion: will update cmp and a1c. ICD-9 : 250.02 ICD-10 : E11.65 02/12/2020 Visit Diagnosis Plan: Blister (nonthermal), right foot , initial encounter Discussion: instructed patient to not pop the blister but allow it to open on its own. instructed to apply iodine daily to prevent infection. keflex was prescribed to take if worsening of sore due to patient's medical history and prone to cellulitis. ICD-9 : 917.2 ICD-10 : S90.821A 02/12/2020 Appointment: Kathleen Zuniga [address] [place] [address] ACUTE ILLNESS 02/12/2020 Visit Diagnosis Plan: Essential (primary) hypertension Discussion: Increase lisinopril to 40mg daily ICD-9 : 401.9 ICD-10 : I10 01/13/2020 Visit Diagnosis Plan: Allergic rhinitis Discussion: Ca n add plain zyrtec 10mg daily ICD-9 : 477.9 ICD-10 : J30.9 01/13/2020 Visit Diagnosis Plan: Type 2 diabetes mellitus with hy perglycemia Discussion: Increase glimepride to 4mg po BID Accuchecks at least BID ICD-9 : 250.02 ICD-10 : E11.65 01/13/2020 Appointment: María Elena Appiah WPtel: [address] [place], [place] [phone] [place] FOLLOW UP 01/13/2020 Patient Education: lisinopril- [employer] C[employer]on [id number] Completed 01/13/2020 Patient Education: glimepiride- [employer] C[employer]on [id number] Completed 01/13/2020 Appointment: María Elena Appiah WPtel: [facility] [place] CANCELED 11/26/2019 Visit Diagnosis Plan: Type 2 diabetes mellitus with hy perglycemia Discussion: Januvia 100mg daily Glimepride 2mg po BID Accuchecks BID Call in 2 weeks with BS readings Get formulary book ICD-9 : 250.02 ICD-10 : E11.65 11/20/2019 Appointment: María Elena Appiah WPtel: [phone] [id number] FOLLOW UP 11/20/2019 Patient Education: glimepiride- [employer] [id number] Completed 11/20/2019 Patient Education: Januvia- [employer] C[employer]on [id number] Completed 11/20/2019 Visit Diagnosis Plan: Ingrowing nail Discussion: lilyu ssed with patient that she needs to have partial toenail removed from bilateral great toes. informed patient that although we were able to a couple years ago, her blood sugars are now out of control and places her at risk for complications and she should see a specialist to have her nails brought down and removed. keflex prescribed due to the mild erythema and scant purulent drainage but educated patient that she will continue to become infected until that nail is removed from the tissue. patient verbalized understanding but doesn't want to see a specialist. instructed patient to soak in epsom salt and can apply vaseline to help soften the nail but educated patient that her uncontrolled diabetes places her at high risk for worsening infection, unhealing wounds, amputations, or even from infection and infroemd patient to stop wearing flip flops and wear good supportive shoes. call office with any worsening or when patient is ready to see dr. geiger. ICD-9 : 703.0 ICD-10 : L60.0 10/07/2019 Visit Diagnosis Plan: Type 2 diabetes mellitus with hy perglycemia Discussion: patient tolerating glyxambi well but continues to have elevated blood sugars. sample of increased dose 25/5 was given to patient for her to take daily. will have her call in one week with blood sugar readings. ICD-9 : 250.02 ICD-10 : E11.65 10/07/2019 Appointment: Kathleen Zuniga [address] [place], [place] [id number] OFFICE SURGERY 10/07/2019 Visit Diagnosis Plan: Hypertriglyceridemia Discussion: Mediterranean diet Combination of cardio and weight bearing exercise Will be adding meds but will get BS under better control first ICD-9 : 272.1 ICD-10 : E78.1 09/30/2019 Visit Diagnosis Plan: Essential hypertension Discussio n: Stable ICD-9 : 401.9 ICD-10 : I10 09/30/2019 Visit Diagnosis Plan: DM w/o complication type II, unc ontrolled Discussion: Lab discussed Lifestyle change Trial of Glyxambi 10/5mg 1 daily Accuchecks BID BS readings in 1 week to adjust meds Patient has not tolerated metformin or onglyza in the past ICD-9 : 250.02 ICD-10 : E11.65 09/30/2019 Appointment: María Elena Appiah WPtel: [address] [place], [place] [phone] [place] CHECK UP 09/30/2019 Patient Education: Premarin- [employer] C[employer]on [id number] [email or web address]/[email or web address]resources/getResource/[email or web address]/[email or web address] Completed 09/30/2019 Appointment: María Elena Appiah WPtel: [address] [place], [place] [phone] [place] LAB 09/29/2019 Appointment: María Elena Appiah WPtel: [address] [place], [place] [phone] [place] Won't have the new insurance till Sep 10. CANCELE D 07/24/2019 Visit Diagnosis Plan: Essential (primary) hypertension Discussion: Stable Will have insurance in July and do lab then ICD-9 : 401.9 ICD-10 : I10 05/28/2019 Visit Diagnosis Plan: Fall from bed, sequela Discussio n: DC gabapentin Decrease baclofen to 10mg TID prn ICD-9 : E929.3 ICD-10 : W06.XXXS 05/28/2019 Appointment: María Elena Appiah WPtel: [address] [place], [place] [phone] [place] FOLLOW UP 05/28/2019 Appointment: María Elena Appiah WPtel: [address] [place], [place] [phone] [place] BP CHECK 05/19/2019 Visit Diagnosis Plan: Type 2 diabetes mellitus with hy perglycemia Discussion: Needs updated labs--has not done them yet--lost insurance Accuchecks daily Continue current meds ICD-9 : 250.02 ICD-10 : E11.65 01/22/2019 Visit Diagnosis Plan: Intervertebral dis c disorders with radiculopathy, lumbar region Discussion: Stable on Hydrocodone UDS do ne today Follow Up: 3 months ICD-9 : 722.10 ICD-10 : M51.16 01/22/2019 Visit Diagnosis Plan: Essential (primary) hypertension Discussion: Stable ICD-9 : 401.9 ICD-10 : I10 01/22/2019 Visit Diagnosis Plan: Hormone replacement therapy Disc ussion: Change premarin to estradiol for cost savings ICD-9 : V07.4 ICD-10 : Z79.890 01/22/2019 Appointment: María Elena Appiah WPtel: [address] [place], [place] [phone] [place] FOLLOW UP 01/22/2019 Patient Education: estradiol- [employer] C[employer]on [id number] [email or web address]resources/getResource/[email or web address]/[email or web address] Completed 01/22/2019 Appointment: María Elena Appiah WPtel: [address] [place], [place] [phone] [place] CANCELED 01/20/2019 Appointment: María Elena Appiah WPtel: [address] [place] [address] [place] LM NO SHOW 01/06/2019 Appointment: María Elena Appiah WPtel: [address] [place], [place] [phone] [place] CANCELED 10/17/2018 Appointment: María Elena Appiah WPtel: [address] [place], [place] [phone] [place] BP CHECK 10/09/2018 Visit Diagnosis Plan: Type 2 diabetes mellitus with hy perglycemia Discussion: Patient still has not gotten lab done--will go today Check UA for microalbumin Follow Up: 3 months ICD-9 : 250.02 ICD-10 : E11.65 09/30/2018 Visit Diagnosis Plan: Essential (primary) hypertension Discussion: Continue current meds and monitor BP ICD-9 : 401.9 ICD-10 : I10 09/30/2018 Appointment: María Elena Appiah WPtel: [address] [place] [address] [place] FOLLOW UP 09/30/2018 Visit Diagnosis Plan: Pain in left elbow Discussion: T opical biofreeze and elbow pad ICD-9 : 719.42 ICD-10 : M25.522 08/27/2018 Visit Diagnosis Plan: Abnormal weight gain Discussion: Phenteramine 37.5mg retrial Return in 1month for weight/BP check and punch biopsy removal of upper arm lesion ICD-9 : 783.1 ICD-10 : R63.5 08/27/2018 Visit Diagnosis Plan: Primary insomnia Recommendations : Stable on doxepin ICD-9 : 780.52 ICD-10 : F51.01 08/27/2018 Appointment: María Elena Appiah WPtel: [address] [place] [address] ACUTE ILLNESS 08/27/2018 Appointment: María Elena Appiah WPtel: [address] [place] [address] [place] Patient stated she went out to start her car to come here and she has a flat tire. NO SHOW - FORGIVEN 08/19/2018 Visit Plan: Saline nasal flushes prn. Ty lenol/Motrin prn headache. Notify if persists/symptoms worsening. 08/09/2018 Visit Diagnosis Plan: Tinea corporis Discussion: Diflu can ICD-9 : 110.5 ICD-10 : B35.4 08/09/2018 Visit Diagnosis Plan: Follicular disorder, unspecified Discussion: Keflex ICD-9 : 704.8 ICD-10 : L73.9 08/09/2018 Visit NOS Plan: Plan Notes: Saline nasal flu shes prn. Tyle... 08/09/2018 Appointment: María Elena Appiahtel: [address] [place] [address] [place] ACUTE ILLNESS 08/09/2018 Appointment: María Elena Appiah WPtel: [address] [place] [address] NO SHOW 08/08/2018 Visit Diagnosis Plan: Anxiety disorder, unspecified Di scussion: Trial of doxepin 25mg at for sleep ICD-9 : 300.00 ICD-10 : F41.9 07/22/2018 Visit Diagnosis Plan: Menopausal and female climacteri c states Discussion: Recommend increase Premarin dose to 1 1/2 tabs daily for one week Notify if symptoms persist or worsen ICD-9 : 627.2 ICD-10 : N95.1 07/22/2018 Visit Diagnosis Plan: Tinea corporis Discussion: Nysta tin powder to bilateral breast folds BID for 2 weeks Need updated labs (Mag Lab order given) Will call with lab results ICD-9 : 110.5 ICD-10 : B35.4 07/22/2018 Appointment: María Elena Appiah WPtel: [address] [place] [address] ACUTE ILLNESS 07/22/2018 Appointment: María Elena Appiah WPtel: [address] [place] [address] [place] INJECTION 06/19/2018 Patient Education: Patient Medication Summary Completed 06/19/2018 Visit Diagnosis Plan: Cellulitis of right toe Discussi on: patient unable to tolerate oral antibiotics. rocephin injection given in office. instructed to soak foot in epsom salt and to keep foot very clean. instructed to wear better shoes for protection. rtc tomorrow for additional injection. ok to use honey dressing to heel but avoid on toe to allow proper drainage of infection. patient verbalized understanding. ICD-9 : 681.10 ICD-10 : L03.031 06/17/2018 Appointment: Kathleen Zuniga [address] [place] [address] ACUTE ILLNESS 06/17/2018 Patient Education: Patient Medication Summary Completed 06/17/2018 Visit Diagnosis Plan: Migraine without a ura, intractable, without status migrainosus Discussion: 60 mg toradol given in offic e along with 8 mg zofran. instructed to rest at home with lights off and to take 800 mg ibuprofen tonight before bed. call office with worsening symptoms. ICD-9 : 346.11 ICD-10 : G43.019 05/16/2018 Visit Diagnosis Plan: Zoster without complications Dis cussion: acyclovir prescribed for symptom managgement. discussed with patient to receive shingrix vaccine in 3 months after exacerbation. discussed s/s of worsening or infection and to call with any concerns. ICD-9 : 053.9 ICD-10 : B02.9 05/16/2018 Appointment: Kathleen Zuniga [address] [place] [address] ACUTE ILLNESS 05/16/2018 Patient Education: Patient Medication Summary Completed 05/16/2018 Visit Diagnosis Plan: Cellulitis of right lower limb D iscussion: healthy tissue is present across wound bed but continues to drain and cause minimal discomfort to patient. wound care ordered for patient to be evaluated on sunday at 0900 for proper cleansing of wound. discussed findings with dr. appiah. 2 additional days of vancomycin to be completed pending cmp and vanc trough. ICD-9 : 682.7 ICD-10 : L03.115 03/20/2018 Appointment: Kathleen Zuniga [address] [place], [place] [address] FOLLOW UP 03/20/2018 Patient Education: Patient Medication Summary Completed 03/20/2018 Visit Diagnosis Plan: Cellulitis of right lower limb D iscussion: dr. appiah was in to evaluate patient as well who ordered patient to have additional 2 days of vancomycin. outpatient order was written and given to patient. patient verbalized understading. instructed to dc peroxide and keep area covered with telfa. clean area daily with antibacterial soap. follow up in 2 days for wound check. ICD-9 : 682.7 ICD-10 : L03.115 03/18/2018 Appointment: Kathleen Zuniga [address] [place], [place] [id number] FOLLOW UP 03/18/2018 Patient Education: Patient Medication Summary Completed 03/18/2018 Visit Diagnosis Plan: Cellulitis of right lower limb D iscussion: patient unable to take oral antibiotics. patient had received several injections of rocephin outpatient with no improvement of wound. due to this and recent dx of diabetes, patient sent to outpatient surgery to receive vancomycin injections daily for 3 days (1 gm). instructed to rtc on sunday for check on wound. instructed to keep wound clean and dry. if worsening over the weekend, instructed to go to ed. ICD-9 : 682.7 ICD-10 : L03.115 03/15/2018 Appointment: Kathleen Zuniga [address] [place] [address] ACUTE ILLNESS 03/15/2018 Patient Education: Patient Medication Summary Completed 03/15/2018 Visit Diagnosis Plan: Acute sinusitis, unspecified Dis cussion: 40 mg kenalog/4 mg dexa given in office. due to recurrent issues, instructed patient to start taking zyrtec or claritin daily along with singulair and flonase. instructed patient that she may need to see dr. sanchez ENT again due to recurrent issues. ICD-9 : 461.9 ICD-10 : J01.90 02/11/2018 Appointment: Kathleen Zuniga [address] [place] [address] ACUTE ILLNESS 02/11/2018 Patient Education: Patient Medication Summary Completed 02/11/2018 Appointment: María Elena Appiah WPtel: [phone] [id number] INJECTION 02/01/2018 Patient Education: Patient Medication Summary Completed 02/01/2018 Visit Diagnosis Plan: Acute suppurative otitis media without spontaneous rupture of ear drum, left ear Discussion: patient reports she is unabl e to tolerate oral medications so rocephin injection given in office. instructed patient to rtc tomorrow or fri if no improvement and will administer additional shot. ICD-9 : 382.00 ICD-10 : H66.002 01/30/2018 Visit Diagnosis Plan: Abnormal weight gain Discussion: phentermine restarted for patient. instructed to rtc in one month for weight/bp check. instructed patient to continue with healthy eating and exercise. ICD-9 : 783.1 ICD-10 : R63.5 01/30/2018 Visit Diagnosis Plan: Intervertebral dis c disorders with radiculopathy, lumbar region Discussion: lyrica refilled for patient with samples given coupon card given to patient as well. instructed patient to keep scheduled follow up appt for diabetes and will reassess medication efficacy at that time. call if no improvement or worsening symptoms. ICD-9 : 722.10 ICD-10 : M51.16 01/30/2018 Appointment: Kathleen Zuniga [address] [place] [address] ACUTE ILLNESS 01/30/2018 Patient Education: Patient Medication Summary Completed 01/30/2018 Patient Education: Lyrica - 18+ - No HI [place] Completed 01/30/2018 Visit Diagnosis Plan: Mixed hyperlipidemia Discussion: diet/exercise/weight loss and recheck in 6mos ICD-9 : 272.4 ICD-10 : E78.2 12/18/2017 Visit Diagnosis Plan: Essential (primary) hypertension Discussion: Stable ICD-9 : 401.9 ICD-10 : I10 12/18/2017 Visit Diagnosis Plan: Varicose veins of bilateral lower extremities with other complications Discussion: Has had normal ABIs but will see CV surgery to assess arteries and veins ICD-9 : 454.8 ICD-10 : I83.893 12/18/2017 Visit Diagnosis Plan: Type 2 diabetes mellitus with hy perglycemia Discussion: Start onglyza 2.5mg po daily for 2 weeks then 5mg po daily Accuchecks daily alternating times Defers diabetes education Discussed diabetic diet and exercise Check CMP and HbA1C in 3mos then fwup ICD-9 : 250.02 ICD-10 : E11.65 12/18/2017 Appointment: María Elena Appiah WPtel: [address] [place] [address] Annual Well Visit 12/18/2017 Patient Education: Patient Medication Summary Completed 12/18/2017 Care Plan: Referral Order SNOMED-CT : [id number] Pending 12/18/2017 Appointment: María Elena Appiah WPtel: [address] [place] [address] INJECTION 12/10/2017 Patient Education: Patient Medication Summary Completed 12/10/2017 Visit Diagnosis Plan: Acute sinusitis, unspecified Dis cussion: rocephin to cover for sinus infection also. 6 mg dexa given to patient. ICD-9 : 461.9 ICD-10 : J01.90 12/07/2017 Visit Diagnosis Plan: Cellulitis of right toe Discussi on: no signs of fractures noted to toe or foot. due to toe continuing to drain purulent fluid, rocephin injection given to rid infection. instructed to continue with neosporin to site and keep clean and dry. if no improvement next week, call or rtc. patient has not had any updated labs in a while so instructed her to rtc next week for fasting lab work. ICD-9 : 681.10 ICD-10 : L03.031 12/07/2017 Appointment: Kathleen Zuniga [address] [place] [address] ACUTE ILLNESS 12/07/2017 Patient Education: Patient Medication Summary Completed 12/07/2017 Visit Diagnosis Plan: Acute maxillary sinusitis, unspe cified Discussion: patient states all oral antibiotics cause her to have abdominal issues including pain and diarrhea and requesting rocephin. 1 gm rocephin given to patient at this time. instructed her to call or rtc with any concerns or if no improvement. continue with saline up nares and humidifier/hot steam from shower. ICD-9 : 461.0 ICD-10 : J01.00 10/08/2017 Appointment: Kathleen Zuniga [address] [place] [address] ACUTE ILLNESS 10/08/2017 Patient Education: Patient Medication Summary Completed 10/08/2017 Appointment: María Elena Appiah WPtel: [phone] [facility] [place] INJECTION 09/21/2017 Patient Education: Patient Medication Summary Completed 09/21/2017 Visit Diagnosis Plan: Cellulitis of left toe Discussio n: rocephin shot given at today's visit. patient instructed to come back tomorrow for additional shot. instructed to call or RTC if no improvement or worsening symptoms. ICD-9 : 681.10 ICD-10 : L03.032 09/20/2017 Visit Diagnosis Plan: Major depressive disorder, singl e episode, unspecified Discussion: dc cymbalta and start effexor. no need to wean off since same class of medication but discussed mild side effects that she may have from switching. informed her she may not notice a change in mood for several weeks. follow up in 4-6 weeks for medication review. effexor to assist with hot flashes as well. ICD-9 : 311 ICD-10 : F32.9 09/20/2017 Visit Diagnosis Plan: Anxiety disorder, unspecified Di scussion: see other plans. follow up 1 month ICD-9 : 300.00 ICD-10 : F41.9 09/20/2017 Visit Diagnosis Plan: Insomnia, unspecified Discussion : dc lunesta since ineffective. trial of hydroxyzine for anxiety and sleep. notify office if ineffective. follow up in one month as well. home sleep apnea test to be ordered to rule out apnea. ICD-9 : 780.52 ICD-10 : G47.00 09/20/2017 Visit Diagnosis Plan: Snoring Discussion: home sleep a pnea test to be ordered. ICD-9 : 786.09 ICD-10 : R06.83 09/20/2017 Appointment: [facility] [facility] 09/20/2017 Patient Education: Patient Medication Summary Completed 09/20/2017 Visit Diagnosis Plan: Ingrowing nail Discussion: after partial nails removed, sites were cleansed, covered with neosporin and wrapped with 4x4 gauze and tape. instructed to keep dressing on toes for 24 hours and to not soak in bathtub. aft er 24 hours, ok to remove bandage but continue with neosporin bid and cover with bandaid for 1 week. call or RTC with any s/s infection. take hydrocodone that is at home for pain as lidocaine will wear off in next couple hours. rocephin shot given at today's visit to cover prophylaxis of infection and sinus infection. ICD-9 : 703.0 ICD-10 : L60.0 08/29/2017 Appointment: [facility] [facility] 08/29/2017 Patient Education: Patient Medication Summary Completed 08/29/2017 Visit Diagnosis Plan: Actinic keratosis Discussion: Cr yotherapy as above ICD-9 : 702.0 ICD-10 : L57.0 08/01/2017 Appointment: María Elena Appiah WPtel: [phone] [facility] [facility] 08/01/2017 Patient Education: Patient Medication Summary Completed 08/01/2017 Appointment: María Elena Appiah WPtel: [address] [place], [place] [phone] PATIENT THOUGHT APPOINTMENT WAS TOMORROW 07/26/17 CALLED 15 MINUTES BEFORE APPT TO SAY SHE DIDN'T HAVE ANYONE TO COVER HER BUSINESS AND WOULD NOT MAKE IT NO SHOW 07/25/2017 Visit Diagnosis Plan: Cellulitis of left toe Discussio n: Clindamycin and notify if worsening or persistis ICD-9 : 681.10 ICD-10 : L03.032 07/19/2017 Appointment: María Elena Appiah WPtel: [address] [place], [place] [phone] MEDICATION REVIEW 07/19/2017 Patient Education: Patient Medication Summary Completed 07/19/2017 Appointment: María Elena Appiah WPtel: [facility] [place] CANCELED 07/04/2017 Visit Diagnosis Plan: Generalized hyperhidrosis Discus ian: CBC, CMP, TSH, free T4 ordered to assess. will review labs. ICD-9 : 780.8 ICD-10 : R61 06/27/2017 Visit Diagnosis Plan: Chronic sinusitis, unspecified D iscussion: Referral sent to dr. albarado in [place] per patient request. patient has been treated multiple times for sinus infections with no recovery. patient was seen by dr sanchez in the past with no interventions. patient has deviated septum which may be affecting her sinuses. ICD-9 : 473.9 ICD-10 : J32.9 06/27/2017 Appointment: Kathleen Zuniga [address] [place], [place] [id number] ACUTE ILLNESS 06/27/2017 Patient Education: Patient Medication Summary Completed 06/27/2017 Visit Diagnosis Plan: Primary insomnia Discussion: Def ers trying new meds ICD-9 : 780.52 ICD-10 : F51.01 04/10/2017 Visit Diagnosis Plan: Other fatigue Discussion: Chroni c, multifactorial ICD-9 : 780.79 ICD-10 : R53.83 04/10/2017 Visit Diagnosis Plan: Intervertebral dis c disorders with radiculopathy, lumbar region Discussion: Continue hydrocodone at curr ent dose Follow Up: 3 months ICD-9 : 722.10 ICD-10 : M51.16 04/10/2017 Appointment: María Elena Appiah WPtel: [address] [place], [place] [phone] 04/09 confirmed~sl MEDICATION REVIEW 04/10/2017 Patient Education: Patient Medication Summary Completed 04/10/2017 Appointment: María Elena Appiah WPtel: [address] [place], [place] [id number] 03/15 confirmed `sl RESCHEDULED 03/19/2017 Visit Diagnosis Plan: 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, including hip Discussion: Shave removal of above lesio n--sent to pathology ICD-9 : 216.7 ICD-10 : D23.72 01/24/2017 Appointment: María Elena Appiah WPtel: [address] [place], [place] [id number] 01/23 confirmed ~ OFFICE SURGERY 01/24/2017 Patient Education: Patient Medication Summary Completed 01/24/2017 Appointment: Loan Sánchez [address] [place] [address] 01/09 rescheduled~sl RESCHEDULED 01/15/2017 Visit Diagnosis Plan: Localized edema Discussion: Reich ge metolazone to lasix with potassium prn ICD-9 : 782.3 ICD-10 : R60.0 12/13/2016 Visit Diagnosis Plan: Primary insomnia Discussion: Dis cussed Belsomra but at this time patient wants to hold on trying any new meds and would like to try to decrease meds ICD-9 : 780.52 ICD-10 : F51.01 12/13/2016 Visit Diagnosis Plan: Other melanin hyperpigmentation Discussion: Monitor/Observe Sunscreen ICD-9 : 709.09 ICD-10 : L81.4 12/13/2016 Appointment: María Elena Appiah WPtel: [address] [place], [place] [phone] 12/12 confirmed ~sl MEDICATION REVIEW 12/13/2016 Patient Education: Patient Medication Summary Completed 12/13/2016 Appointment: María Elena Appiah WPtel: [address] [place], [place] [phone] [place] rescheduled for 12/13/16 at 11am RESCHEDULED 0 12/06/2016 Appointment: María Elena Appiah WPtel: [phone] [facility] [place] CANCELED 11/23/2016 Patient Education: Patient Medication Summary Completed 11/23/2016 Patient Education: Patient Medication Summary Completed 11/17/2016 Visit Diagnosis Plan: Cyanosis Discussion: Proceed wit h ABIs as ordered back in fall ICD-9 : 782.5 ICD-10 : R23.0 11/01/2016 Visit Diagnosis Plan: Primary insomnia Discussion: Sta rt elavil 25mg q HS for 1 week with xanax 1mg then increase elavil to 50mg q HS with 0.5mg xanax week 2 then continue elavil at 50mg q HS and DC xanax Follow Up: 4 weeks ICD-9 : 780.52 ICD-10 : F51.01 11/01/2016 Appointment: María Elena Appiah WPtel: [address] [place], [place] [phone] 10/31 lm `sl 11/01 lm`sl MEDICATION REVIEW 017 Patient Education: Patient Medication Summary Completed 11/01/2016 Referral: Canelo Overton WPtel: [phone] [id number] [place] Referral Initiated 10/30/2016 Visit Diagnosis Plan: Encounter for rout ine child health examination without abnormal findings Discussion: Lab up to date Referral for colonoscopy Follow Up: 6 months ICD-9 : V20.2 ICD-10 : Z00.129 10/17/2016 Visit Diagnosis Plan: Encounter for gyne cological examination (general) (routine) without abnormal findings Discussion: Speculum and Bimanual exam d one Mammogram ordered ICD-9 : V72.31 ICD-10 : Z01.419 10/17/2016 Appointment: María Elena Appiah WPtel: [address] [place], [place] [phone] 10/16 confirmed ~sl PAP 10/17/2016 Patient Education: Patient Medication Summary Completed 10/17/2016 Care Plan: MAMMOGRAM SCREENING LOINC : 2 6347-5 Pending 10/17/2016 Visit Diagnosis Plan: Other seasonal allergic rhinitis Discussion: Decadron/Garamycin Nasal [place] Mix Too soon for steroid Retry zyrtec 10mg daily ICD-9 : 477.9 ICD-10 : J30.2 10/10/2016 Appointment: María Elena Appiah WPtel: [address] [place], [place] [phone] FOLLOW UP 10/10/2016 Patient Education: Patient Medication Summary Completed 10/10/2016 Appointment: María Elena Appiah WPtel: [address] [place], [place] [phone] 10/02 reschedule `sl RESCHEDULED 10/02/2016 Visit Plan: See surgery for removal of n ew left arm lesion and right foot lesion Lyrica to use next month for left arm paresthesias Continue current meds Discussed sunscreen/sunblock combo 09/19/2016 Appointment: María Elena Appiah WPtel: [address] [place], [place] [phone] 09/18 confirmed ~sl FOLLOW UP 09/19/2016 Patient Education: Patient Medication Summary Completed 09/19/2016 Patient Education: Patient Medication Summary Completed 09/18/2016 Care Plan: MAMMOGRAM BOTH BREASTS LOINC : 57035-7 Pending 09/18/2016 Visit Plan: Discussed that needs to give things time--these symptoms just started last night Saline nasal flushes prn. Tylenol/Motrin prn headache. Notify if persists/symptoms worsening. Discussed that just finished numerous rounds of abx and of steroids and this just started so is likely viral vs chronic sinus issues associated with exaceration with weather change and heat at night drying out sinuses 08/24/2016 Appointment: María Elena Appiah WPtel: [address] [place], [place] [phone] ACUTE ILLNESS 08/24/2016 Patient Education: Patient Medication Summary Completed 08/24/2016 Patient Education: Patient Medication Summary Completed 08/23/2016 Care Plan: MAMMOGRAM SCREENING LOINC : 2 6347-5 Pending 08/23/2016 Visit Plan: Finish doxycycline Add Breo 100/25 1 p BID for 2 weeks If not improving within next 2 days will get CXR 08/16/2016 Appointment: María Elena Appiah WPtel: [address] [place] [address] ACUTE ILLNESS 08/16/2016 Patient Education: Patient Medication Summary Completed 08/16/2016 Visit Plan: Supportive care. Rest, Fluid s, Tylenol/Motrin prn fever or bodyaches. Notify if worsening symptoms. Doxycyline and Prednisone 08/10/2016 Appointment: María Elena Appiah WPtel: [address] [place] [address] 08/09 lm`sl....confirmed-sp FOLLOW UP 09/2015 Patient Education: Patient Medication Summary Completed 08/10/2016 Visit Plan: Saline nasal flushes prn. Ty lenol/Motrin prn headache. Notify if persists/symptoms worsening. Dexamethasone 8mg IM today May use coricedan and mucinex 08/02/2016 Appointment: María Elena Appiah WPtel: [address] [place] [address] ACUTE ILLNESS 08/02/2016 Patient Education: Patient Medication Summary Completed 08/02/2016 Visit Plan: Cryotherapy as above and lef t forearm lesion removal as above with 5-0 punch biopsy and sent to path Return in 10 days for suture removal 08/01/2016 Appointment: María Elena Appiah WPtel: [address] [place] [address] 07/31 confirmed`~sl OFFICE SURGERY 08/01/2016 Patient Education: Patient Medication Summary Completed 08/01/2016 Visit Plan: Stop clindamycin Check CBC, CMP, ESR now/STAT 07/27/2016 Appointment: María Elena Appiah WPtel: [address] [place] [address] ACUTE ILLNESS 07/27/2016 Patient Education: Patient Medication Summary Completed 07/27/2016 Visit Plan: Update lab and check ABIs to start with Will likely need cardiology evaluation to rule out PVD Clindamycin for 10 days Daily yogurt or probiotic Will return for removal of left arm lesions 07/20/2016 Appointment: María Elena Appiah WPtel: [address] [place] [address] ACUTE ILLNESS 07/20/2016 Patient Education: Patient Medication Summary Completed 07/20/2016 Patient Education: Patient Medication Summary Completed 07/20/2016 Care Plan: MAMMOGRAM BOTH BREASTS LOINC : 97197-3 Pending 07/20/2016 Care Plan: US EXAM CHEST LOINC : 93066-7 Pending 07/20/2016 Visit Plan: Wound culture collected from left great toe Appearance is somewhat staph like Rx as above Wound cleanser and skin care reviewed May need to add oral antibiotic if sores do not heal or continue to reoccur 07/06/2016 Appointment: Loan Sánchez [address] [place] [address] ACUTE ILLNESS 07/06/2016 Patient Education: Patient Medication Summary Completed 07/06/2016 Appointment: María Elena Appiah WPtel: [address] [place] [address] [place] INJECTION 05/25/2016 Patient Education: Patient Medication Summary Completed 05/25/2016 Visit Plan: Saline nasal flushes prn. Ty lenol/Motrin prn headache. Notify if persists/symptoms worsening. Dexamethasone and Rocephin given 04/26/2016 Appointment: Mraía Elena Appiah WPtel: [address] [place] [address] ACUTE ILLNESS 04/26/2016 Patient Education: Patient Medication Summary Completed 04/26/2016 Visit Plan: Check CBC, CMP, TSH, FreeT4, HbA1C, estradiol, lipids in AM 03/02/2016 Appointment: María Elena Appiah WPtel: [address] [place] [address] 03/01 lm~sl ACUTE ILLNESS 03/02/2016 Patient Education: Patient Medication Summary Completed 03/02/2016 Visit Plan: Exam is nearly normal Needs to be taking daily antihistamine Would prefer to use oral steroids instead of shot but patient insist that oral steroids cause horrible headaches for her Will given kenalog IM instead 02/09/2016 Appointment: Loan Sánchez [address] [place] [address] ACUTE ILLNESS 02/09/2016 Patient Education: Patient Medication Summary Completed 02/09/2016 Visit Plan: Culture urine Macrobid DC xa nax Trial of Ativan 1mg q HS 01/24/2016 Appointment: María Elena Appiah WPtel: [address] [place] [address] ACUTE ILLNESS 01/24/2016 Patient Education: Patient Medication Summary Completed 01/24/2016 Visit Plan: No steroid or rocephin injec tion warranted Can have oral prednisone Continue current home regimen Needs to follow up with Dr Sanchez if problems persist 12/23/2015 Appointment: Loan Sánchez [address] [place] [address] ACUTE ILLNESS 12/23/2015 Patient Education: Patient Medication Summary Completed 12/23/2015 Visit Plan: Saline nasal flushes prn. Ty lenol/Motrin prn headache. Notify if persists/symptoms worsening. Kenalog 40mg IM today 12/08/2015 Appointment: María Elena Appiah WPtel: [address] [place] [address] 12/06 confirmed~sl ACUTE ILLNESS 12/08/2015 Patient Education: Patient Medication Summary Completed 12/08/2015 Appointment: María Elena Appiah WPtel: [address] [place] [address] ACUTE ILLNESS 11/18/2015 Patient Education: Patient Medication Summary Completed 10/11/2015 Appointment: María Elena Appiah WPtel: [address] [place] [address] [place] INJECTION 10/07/2015 Patient Education: Patient Medication Summary Completed 10/07/2015 Visit Plan: Check renal arterial doppler s and ECHO Change amlodopine to lotrel 5/20mg q HS Will need stress test as well Check CMP, uric acid, ESR 10/06/2015 Appointment: María Elena Appiah WPtel: [address] [place], [place] [phone] ACUTE ILLNESS 10/06/2015 Patient Education: Patient Medication Summary Completed 10/06/2015 Patient Education: [facility] - Saving AutoInj - Amlodipine Besylate - 18-64 - Dynamic Portal ID Completed 10/06/2015 Appointment: María Elena Appiah WPtel: [address] [place] [address] [place] FOLLOW UP 09/22/2015 Visit Plan: Cephalexin 500 mg PO bid Mery ly topical Mupirocin to lesions on left lateral neck and face Follow-up in one week. Sooner if symptoms worsen 09/14/2015 Appointment: June Flores WPtel: [address] [place] [address] ACUTE ILLNESS 09/14/2015 Patient Education: Patient Medication Summary Completed 09/14/2015 Visit Plan: Change bystolic to bedtime d osing and amlodopine to morning dosing Cryotherapy as above to AKs 09/07/2015 Appointment: María Elena Appiah WPtel: [address] [place] [address] 09/06 appointment made and confirmed ~sl FOLLOW UP 09/07/2015 Patient Education: Patient Medication Summary Completed 09/07/2015 Visit Plan: Increase bystolic back to 20 mg daily but will split and take 10mg in AM and 10mg in PM Stress Reducers 08/18/2015 Appointment: María Elena Appiah WPtel: [address] [place] [address] 08/17/15 appt confirmed cn ACUTE ILLNESS 08/18 Patient Education: Patient Medication Summary Completed 08/18/2015 Appointment: María Elena Appiah WPtel: [address] [place] [address] [place] BP CHECK 07/07/2015 Patient Education: Patient Medication Summary Completed 07/07/2015 Appointment: María Elena Appiah WPtel: [address] [place] [address] BP CHECK 06/24/2015 Patient Education: Patient Medication Summary Completed 06/24/2015 Appointment: María Elena Appiah WPtel: [address] [place] [address] BP CHECK 06/21/2015 Patient Education: Patient Medication Summary Completed 06/21/2015 Visit Plan: Lab discussed Continue curre nt meds and lifestyle modification Recheck lab in 6mos 06/16/2015 Appointment: María Elena Appiah WPtel: [address] [place] [address] 06/15 [facility] FOLLOW UP 06/16/2015 Patient Education: Patient Medication Summary Completed 06/16/2015 Patient Education: Patient Medication Summary Completed 06/15/2015 Visit Plan: Increase cymbalta to 60mg q HS Keep clonidine at current dose Recheck 2weeks Change xanax to klonopin 06/02/2015 Appointment: María Elena Appiah WPtel: [address] [place] [address] 06/02 lm FOLLOW UP 06/02/2015 Patient Education: Patient Medication Summary Completed 06/02/2015 Appointment: María Elena Appiah WPtel: [address] [place] [address] ACUTE ILLNESS 05/24/2015 Visit Plan: Increase clonidine to 0.2mg q HS Add cymbalta 30mg q HS Recheck 2weeks Stress Reducers Check fasting lab Discussed sleep study 05/20/2015 Appointment: María Elena Appiah WPtel: [address] [place] [address] ACUTE ILLNESS 05/20/2015 Patient Education: Patient Medication Summary Completed 05/20/2015 Patient Education: [facility] - Saving [employer]j - Cymbalta - 18-64 - Dynamic Portal ID Completed 05/20/2015 Appointment: María Elena Appiah WPtel: [address] [place] [address] BP CHECK 05/19/2015 Patient Education: Patient Medication Summary Completed 05/19/2015 Visit Plan: Topical Bactroban alternatin g with topical betamethasone Recheck 2weeks 05/10/2015 Appointment: María Elena Appiah WPtel: [address] [place] [address] 05/07 vm cn...05/07 appt confirmed OFFICE SURGER Y 05/10/2015 Patient Education: Patient Medication Summary Completed 05/10/2015 Referral: Patrick Chandler WPtel: [facility] [address] Referral Initiated 05/04/2015 Visit Plan: Saline nasal flushes prn. Ty lenol/Motrin prn headache. Notify if persists/symptoms worsening. Depomedrol 40mg IM today 03/16/2015 Appointment: María Elena Appiah WPtel: [address] [place] [address] ACUTE ILLNESS 03/16/2015 Patient Education: Patient Medication Summary Completed 03/16/2015 Appointment: María Elena Appiah WPtel: [address] [place] [address] ER Follow UP 03/09/2015 Visit Plan: Cryotherapy to lesions as ab ove 10/27/2014 Appointment: María Elena Appiah WPtel: [address] [place], [place] [phone] OFFICE SURGERY 10/27/2014 Patient Education: Patient Medication Summary Completed 10/27/2014 Appointment: June Flores WPtel: [address] [place] [address] ACUTE ILLNESS 09/11/2014 Patient Education: Patient Medication Summary Completed 09/11/2014 Visit Plan: Lab discussed Lipitor 10mg d aily Coenzyme Q-10 400mg daily Vitamin D3 5000u daily Recheck lipids with LFTs in 3mos then fwup 08/31/2014 Appointment: María Elena Appiah WPtel: [address] [place] [address] 08/28 voicemail FOLLOW UP 08/31/2014 Patient Education: Patient Medication Summary Completed 08/31/2014 Appointment: María Elena Appiah WPtel: [address] [place] [address] [place] LAB 08/27/2014 Appointment: María Elena Appiah WPtel: [address] [place], [place] [phone] [place] LAB 08/27/2014 Patient Education: Patient Medication Summary Completed 08/27/2014 Appointment: María Elena Appiah WPtel: [address] [place] [address] ACUTE ILLNESS 07/23/2014 Appointment: María Elena Appiah WPtel: [address] [place] [address] ACUTE ILLNESS 07/21/2014 Patient Education: Patient Medication Summary Completed 07/21/2014 Visit Plan: Kenalog 40mg IM today Contin ue narendra and singulair Add Flonase 07/15/2014 Appointment: María Elena Appiah WPtel: [address] [place] [address] ACUTE ILLNESS 07/15/2014 Appointment: María Elena Appiah WPtel: [address] [place] [address] ACUTE ILLNESS 07/15/2014 Patient Education: Patient Medication Summary Completed 07/15/2014 Visit Plan: Will do metolazone 2.5mg prn with 6 potassium and see if causes as severe cramping Trial of of seroquel XR 50mg q PM with evening meal and let us know how works 05/18/2014 Appointment: María Elena Appiah WPtel: [address] [place], [place] [phone] 05/15 left message FOLLOW UP 05/18/2014 Patient Education: Patient Medication Summary Completed 05/18/2014 Appointment: María Elena Appiah WPtel: [address] [place] [address] LAB 05/14/2014 Patient Education: Patient Medication Summary Completed 05/14/2014 Appointment: María Elena Appiah WPtel: [address] [place] [address] [place] INJECTION 04/22/2014 Visit Plan: Tisha and Miranda today a nd finish abx given from urgent care 04/21/2014 Appointment: María Elena Appiah WPtel: [address] [place] [address] [place] INJECTION 04/21/2014 Patient Education: Patient Medication Summary Completed 04/21/2014 Appointment: June Flores WPtel: [address] [place] [address] ACUTE ILLNESS 03/04/2014 Patient Education: Patient Medication Summary Completed 03/04/2014 Appointment: María Elena Appiah WPtel: [address] [place] [address] [place] INJECTION 02/27/2014 Patient Education: Patient Medication Summary Completed 02/27/2014 Visit Plan: Cryotherapy as above to all lesions Patient wants to try no meds for insomnia for a while and see how goes 01/13/2014 Appointment: María Elena Appiah WPtel: [address] [place] [address] OFFICE SURGERY 01/13/2014 Patient Education: Patient Medication Summary Completed 01/13/2014 Visit Plan: Stop Melatonin Stop Soma Tri al of trazadone 75mg q HS See ENT for possible tubes as has had chronic ETD and serous otitis media with numerous steroids 12/24/2013 Appointment: María Elena Appiah WPtel: [address] [place] [address] ACUTE ILLNESS 12/24/2013 Patient Education: Patient Medication Summary Completed 12/24/2013 Visit Plan: Saline nasal flushes prn. Ty lenol/Motrin prn headache. Notify if persists/symptoms worsening. 11/12/2013 Appointment: María Elena Appiah WPtel: [address] [place] [address] ACUTE ILLNESS 11/12/2013 Patient Education: Patient Medication Summary Completed 11/12/2013 Appointment: María Elena Appiah WPtel: [address] [place] [address] ACUTE ILLNESS 10/21/2013 Patient Education: Patient Medication Summary Completed 10/21/2013 Visit Plan: Sleep hygiene and sleep rout ine Melatonin 10mg q HS Support stockings and observe 09/22/2013 Appointment: María Elena Appiah WPtel: [address] [place] [address] ACUTE ILLNESS 09/22/2013 Patient Education: Patient Medication Summary Completed 09/22/2013 Appointment: June Flores WPtel: [address] [place] [address] ACUTE ILLNESS 08/27/2013 Patient Education: Patient Medication Summary Completed 08/27/2013 Visit Plan: Proceed with CT scan of head /neck Proceed with occipital nerve injections Butrans 20mcg patch weekly until can get into see Dr. Mcdonough for injections 08/04/2013 Appointment: María Elena Appiah WPtel: [address] [place] [address] FOLLOW UP 08/04/2013 Patient Education: Patient Medication Summary Completed 08/04/2013 Visit Plan: OMT done Daily neck stretche s, moist heat Increase Celebrex to 200mg BID Add flexeril 07/23/2013 Appointment: María Elena Appiah WPtel: [address] [place] [address] 07/22 voicemail FOLLOW UP 07/23/2013 Patient Education: Patient Medication Summary Completed 07/23/2013 Appointment: María Elena Appiah WPtel: [address] [place] [address] ACUTE ILLNESS 06/23/2013 Patient Education: Patient Medication Summary Completed 06/23/2013 Appointment: María Elena Appiah WPtel: [address] [place] [address] ACUTE ILLNESS 05/26/2013 Patient Education: Patient Medication Summary Completed 05/26/2013 Visit Plan: Decrease clonidine to 0.1mg TID If BP remains stable consider decreasing amlodopine Prednisone for 5 days BP check in 1mo 04/16/2013 Appointment: María Elena Appiah WPtel: [address] [place] [address] 04/14 pt called and confirmed appt FOLLOW UP 04/16/2013 Patient Education: Patient Medication Summary Completed 04/16/2013 Appointment: María Elena Appiah WPtel: [address] [place] [address] ACUTE ILLNESS 03/05/2013 Patient Education: Patient Medication Summary Completed 03/05/2013 Visit Plan: Pt has MARIA ELENA on with Dr. Mcdonough Continue Butrans patch Refill Hydrocodone early tomorrow 12/23/2012 Appointment: María Elena Appiah WPtel: [address] [place] [address] FOLLOW UP 12/23/2012 Patient Education: Patient Medication Summary Completed 12/23/2012 Appointment: Lashawn Eckert WPtel: [address] [place] [address] ACUTE ILLNESS 12/16/2012 Patient Education: Patient Medication Summary Completed 12/16/2012 Visit Plan: Proceed with updated MRI of LS spine Continue gabapentin and add soma and diclofenac Will likely need to go for another epidural 12/09/2012 Appointment: María Elena Appiah WPtel: [address] [place] [address] ACUTE ILLNESS 12/09/2012 Patient Education: Patient Medication Summary Completed 12/09/2012 Visit Plan: Injection as above Finish me drol dose pack Chiropracter this afternoon 12/04/2012 Appointment: María Elena Appiah WPtel: [address] [place], [place] [id number] ACUTE ILLNESS 12/04/2012 Patient Education: Patient Medication Summary Completed 12/04/2012 Appointment: Mary Tillman WPtel: [address] [place] [address] FOLLOW UP 11/22/2012 Patient Education: Patient Medication Summary Completed 11/22/2012 Appointment: María Elena Appiha WPtel: [address] [place], [place] [id number] ACUTE ILLNESS 11/21/2012 Patient Education: Patient Medication Summary Completed 11/21/2012 Appointment: María Elena Appiah WPtel: [address] [place] [address] BP CHECK 11/07/2012 Patient Education: Patient Medication Summary Completed 11/07/2012 Visit Plan: reports extra clonidine and extra amlodipine and extra alprazalam. extra Ketolorac and promethazine last night. Bystolic 10 mg QAM and will continue all other blood pressure meds. Pt. encouraged to rest and hydrate. Discussed stroke and OR symptoms. Pt. instructed to seek ER eval if symptoms worsen or headache persists. Pt. agrees to ER eval/EMS transport if symptoms worsen. BP re-check. 10/29/2012 Appointment: Lashawn Eckert WPtel: [address] [place] [address] ACUTE ILLNESS 10/29/2012 Patient Education: Patient Medication Summary Completed 10/29/2012 Appointment: María Elena Appiah WPtel: [address] [place], [place] [phone] ACUTE ILLNESS 10/14/2012 Patient Education: Patient Medication Summary Completed 10/14/2012 Appointment: María Elena Appiah WPtel: [address] [place], [place] [phone] UA 09/27/2012 Patient Education: Patient Medication Summary Completed 09/27/2012 Appointment: María Elena Appiah WPtel: [address] [place] [phone] ACUTE ILLNESS 09/25/2012 Patient Education: Patient Medication Summary Completed 09/25/2012 Appointment: María Elena Appiah WPtel: [address] [place], [place] [phone] BP CHECK 09/24/2012 Appointment: María Elena Appiah WPtel: [address] [place], [place] [phone] ACUTE ILLNESS 08/29/2012 Patient Education: Patient Medication Summary Completed 08/29/2012 Visit Plan: Cryotherapy as above See Karlos m for right ear lesion--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 ACUTE ILLNESS 05/06/2012 Patient Education: Patient Medication Summary Completed 05/06/2012 Visit Plan: Pt wants to hold on any furt her sleep medications 04/03/2012 Appointment: María Elena Appiah WPtel: [address] [place], [place] [id number] FOLLOW UP 04/03/2012 Patient Education: Patient Medication Summary Completed 04/03/2012 Appointment: María Elena Appiah WPtel: [address] [place], [place] [id number] [place] FOLLOW UP 03/19/2012 Patient Education: Patient Medication Summary Completed 03/19/2012 Appointment: María Elena Appiah WPtel: [address] [place] [address] BP CHECK 02/22/2012 Patient Education: Patient Medication Summary Completed 02/22/2012 Appointment: María Elena Appiahtel: [address] [place] [address] BP CHECK 02/21/2012 Patient Education: Patient Medication Summary Completed 02/21/2012 Visit Plan: Doxycycline and bactroban fo r foot Supportive care on ankles and knees Add norvasc for BP 02/20/2012 Appointment: María Elena Appiah WPtel: [address] [place] [address] ER Follow UP 02/20/2012 Patient Education: Patient Medication Summary Completed 02/20/2012 Appointment: María Elena Appiah WPtel: [address] [place] [address] ACUTE ILLNESS 01/30/2012 Patient Education: Patient Medication Summary Completed 01/30/2012 Appointment: María Elena Appiahtel: [address] [place] [address] ACUTE ILLNESS 01/24/2012 Patient Education: Patient Medication Summary Completed 01/24/2012 Visit Plan: Daily back stretches, moist heat, Biofreeze prn OMT done 01/10/2012 Appointment: María Elena Appiah WPtel: [address] [place] [address] ACUTE ILLNESS 01/10/2012 Patient Education: Patient Medication Summary Completed 01/10/2012 Appointment: María Elena Appiahtel: [address] [place] [address] [place] FOLLOW UP 12/11/2011 Patient Education: Patient Medication Summary Completed 12/11/2011 Appointment: María Elena Appiah WPtel: [address] [place] [address] ACUTE ILLNESS 11/09/2011 Patient Education: Patient Medication Summary Completed 11/09/2011 Appointment: María Elena Appiahtel: [address] [place], [place] [id number] ACUTE ILLNESS 09/13/2011 Patient Education: Patient Medication Summary Completed 09/13/2011 Visit Plan: Check CBC, TSH, Free T4, CMP , ESR, Vit D, B12 now Start Prednisone today 08/31/2011 Appointment: María Elena Appiah WPtel: [address] [place], [place] [phone] ACUTE ILLNESS 08/31/2011 Patient Education: Patient Medication Summary Completed 08/31/2011 Appointment: María Elena Appiah WPtel: [address] [place], [place] [phone] [place] INJECTION 07/20/2011 Patient Education: Patient Medication Summary Completed 07/20/2011 Visit Plan: Continue current meds Monite r BP Cont stretches from PT 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 07/06/2011 Appointment: María Elena Appiah WPtel: [address] [place] [address] FOLLOW UP 07/06/2011 Patient Education: Patient Medication Summary Completed 07/06/2011 Appointment: María Elena Appiahtel: [address] [place] [address] BP CHECK 06/06/2011 Patient Education: Patient Medication Summary Completed 06/06/2011 Visit Plan: Add Bystolic at 2.5mg QAM Ad d Robaxin 750mg 2 po q HS BP check in 2wks 05/22/2011 Appointment: María Elena Appiah WPtel: [address] [place], [place] [phone] FOLLOW UP 05/22/2011 Patient Education: Patient Medication Summary Completed 05/22/2011 Appointment: María Elena Appiahtel: [address] [place], [place] [id number] ER Follow UP 05/09/2011 Patient Education: Patient Medication Summary Completed 05/09/2011 Appointment: María Elena Appiah WPtel: [address] [place] [address] FOLLOW UP 02/22/2011 Visit Plan: Rx written for Hydrocodone 1 0/325mg #240 See Ortho 02/14/2011 Appointment: María Elena Appiah WPtel: [address] [place] [address] [place] OMT 02/14/2011 Patient Education: Patient Medication Summary Completed 02/14/2011 Visit Plan: will refer to [facility] for epi dural steroid injection. Pt. wants another prescription for hydrocodone at a lower dose. Discussed that she is not taking her new muscle relaxer as it makes her vomit. Will give samples of Pennsaid. Pt went to ER yesterday. Discussed that I was not willing to write another hydrocodone RX as a lower dose would not help her pain. Pt. states no liver damage has been demonstrated in past lab testing. Encouraged her to get her labs done that she has written orders for as she has not done this yet. Instructed her to use Pennsaid 30-40 gtt BID on her back. Discussed that if help ful and no problems with the medication we may increase to QID if no liver problems with her lab work. 02/03/2011 Appointment: Lashawn Eckert WPtel: [address] [place] [address] ACUTE ILLNESS 02/03/2011 Patient Education: Patient Medication Summary Completed 02/03/2011 Visit Plan: OMT done Cont daily stretche s 01/31/2011 Appointment: María Elena Appiah WPtel: [address] [place] [address] ACUTE ILLNESS 01/31/2011 Patient Education: Patient Medication Summary Completed 01/31/2011 Visit Plan: Continue pain meds OMT done Proceed with PT No work this summer01/25/2011 Appointment: María Elena Appiah WPtel: [address] [place] [address] ACUTE ILLNESS 01/25/2011 Patient Education: Patient Medication Summary Completed 01/25/2011 Visit Plan: Start PT Long discussion abo ut getting pain meds from only us and can only have max of 4grams of tylenol per day Change to Hydrocodone 10/325mg 1- 2 po TID prn pain--#180 called to [facility] 01/18/2011 Appointment: María Elena Appiahtel: [address] [place] [address] FOLLOW UP 01/18/2011 Patient Education: Patient Medication Summary Completed 01/18/2011 Visit Plan: Daily back stretches, moist heat, Biofreeze prn 11/29/2010 Appointment: María Elena Appiahtel: [address] [place] [address] ER Follow UP 11/29/2010 Patient Education: Patient Medication Summary Completed 11/29/2010 Visit Plan: Saline nasal flushes prn. Ty lenol/Motrin prn headache. Notify if persists/symptoms worsening. Finish augmentin Add Medrol Dose Pack 10/10/2010 Appointment: María Elena Appiahtel: [address] [place] [address] ACUTE ILLNESS 10/10/2010 Patient Education: Patient Medication Summary Completed 10/10/2010 Visit Plan: Cryotherapy x3 to multiple l esions on both forearms 07/19/2010 Appointment: María Elena Appiahtel: [address] [place] [address] OFFICE SURGERY 07/19/2010 Patient Education: Patient Medication Summary Completed 07/19/2010 Appointment: María Elena Appiahtel: [address] [place] [address] BP CHECK 07/06/2010 Patient Education: Patient Medication Summary Completed 07/06/2010 Appointment: María Elena Appiahtel: [address] [place] [address] BP CHECK 06/30/2010 Patient Education: Patient Medication Summary Completed 06/30/2010 Appointment: María Elena Appiahtel: [address] [place] [address] BP CHECK 06/20/2010 Patient Education: Patient Medication Summary Completed 06/20/2010 Visit Plan: Change Diovan to Exforge 160 /5mg QD OMT done to thoracics BP check in 2wks 06/07/2010 Appointment: María Elena Appiahtel: [address] [place] [address] FOLLOW UP 06/07/2010 Patient Education: Patient Medication Summary Completed 06/07/2010 Appointment: María Elena Appiah WPtel: [address] [place] [address] BP CHECK 06/03/2010 Patient Education: Patient Medication Summary Completed 06/03/2010 Appointment: María Elena Appiahtel: [address] [place] [address] BP CHECK 06/01/2010 Patient Education: Patient Medication Summary Completed 06/01/2010 Visit Plan: Irritated skin tags to left neck x2 excised at base with scissors and base cauterized 05/30/2010 Appointment: María Elena Appiah WPtel: [address] [place] [address] OFFICE SURGERY 05/30/2010 Patient Education: Patient Medication Summary Completed 05/30/2010 Visit Plan: Saline nasal flushes prn. Ty lenol/Motrin prn headache. Notify if persists/symptoms worsening. Restart Nasonex Has allergy testing set for May 25 04/27/2010 Appointment: María Elena Appiah WPtel: [address] [place] [address] ACUTE ILLNESS 04/27/2010 Patient Education: Patient Medication Summary Completed 04/27/2010 Visit Plan: Saline nasal flushes prn. Ty lenol/Motrin prn headache. Notify if persists/symptoms worsening. Omnaris BID plus injections 04/05/2010 Appointment: María Elena Appiah WPtel: [address] [place] [address] ACUTE ILLNESS 04/05/2010 Patient Education: Patient Medication Summary Completed 04/05/2010 Visit Plan: Saline nasal flushes prn. Ty lenol/Motrin prn headache. Notify if persists/symptoms worsening. 03/09/2010 Appointment: María Elena Appiah WPtel: [address] [place] [address] ACUTE ILLNESS 03/09/2010 Patient Education: Patient Medication Summary Completed 03/09/2010 Visit Plan: Cont Clonidine as is Cont Pr emarin Fwup with surgery as scheduled 03/03/2010 Appointment: María Elena Appiah WPtel: [address] [place] [address] FOLLOW UP 03/03/2010 Patient Education: Patient Medication Summary Completed 03/03/2010 Visit Plan: Check Pelvic US now Discusse tacho Dand C vs Hysterectomy 01/17/2010 Appointment: María Elena Appiah WPtel: [address] [place] [address] ACUTE ILLNESS 01/17/2010 Patient Education: Patient Medication Summary Completed 01/17/2010 Visit Plan: Check fasting lab and schedu le Mammogram 2gm Na Diet Trial of Ambien 10mg qhs Fwup pending lab results 12/27/2009 Appointment: María Elena Appiah WPtel: [address] [place] [address] ESTABLISHED PATIENT 12/27/2009 Patient Education: Patient Medication Summary Completed 12/27/2009 Referral: Canelo Overton WPtel: [address] [id number] [place] Referral Initiated Referral: Philipp Flores WPtel: [address] [id number] [place] Referral Appointment Requested Instructions Comment . Saline nasal flushes prn. Tylenol/Motr in prn headache. Notify if persists/symptoms worsening. . See surgery for removal of new left ar m lesion and right foot lesion Lyrica to use next month for left arm paresthesias Continue current meds Discussed sunscreen/sunblock combo . Discussed that needs to give things ti me--these symptoms just started last night Saline nasal flushes prn. Tylenol/Motrin prn headache. Notify if persists/symptoms worsening. Discussed that just finished numerous rounds of abx and of steroids and this just started so is likely viral vs chronic sinus issues associated with exaceration with weather change and heat at night drying out sinuses . Finish doxycycline Add Breo 100/25 1 p BID for 2 weeks If not improving within next 2 days will get CXR . Supportive care. Rest, Fluids, Tyleno l/Motrin prn fever or bodyaches. Notify if worsening symptoms. Doxycyline and Prednisone . Saline nasal flushes prn. Tylenol/Motr in prn headache. Notify if persists/symptoms worsening. Dexamethasone 8mg IM today May use coricedan and mucinex . Cryotherapy as above and left forearm lesion removal as above with 5-0 punch biopsy and sent to path Return in 10 days for suture removal . Stop clindamycin Check CBC, CMP, ESR now/STAT . Update lab and check ABIs to start wit h Will likely need cardiology evaluation to rule out PVD Clindamycin for 10 days Daily yogurt or probiotic Will return for removal of left arm lesions . Wound culture collected from left grea t toe Appearance is somewhat staph like Rx as above Wound cleanser and skin care reviewed May need to add oral antibiotic if sores do not heal or continue to reoccur . Saline nasal flushes prn. Tylenol/Motr in prn headache. Notify if persists/symptoms worsening. Dexamethasone and Rocephin given . Check CBC, CMP, TSH, FreeT4, HbA1C, es tradiol, lipids in AM . Exam is nearly normal Needs to be taking daily antihistamine Would prefer to use oral steroids instead of shot but patient insist that oral steroids cause horrible headaches for her Will given kenalog IM instead . Culture urine Macrobid DC xanax Trial of Ativan 1mg q HS . No steroid or rocephin injection moshe avila Can have oral prednisone Continue current home regimen Needs to follow up with Dr Sanchez if problems persist . Saline nasal flushes prn. Tylenol/Motr in prn headache. Notify if persists/symptoms worsening. Kenalog 40mg IM today . Check renal arterial dopplers and ECHO Change amlodopine to lotrel 5/20mg q HS Will need stress test as well Check CMP, uric acid, ESR . Cephalexin 500 mg PO bid Apply topical Mupirocin to lesions on left lateral neck and face Follow-up in one week. Sooner if symptoms worsen . Change bystolic to bedtime dosing and amlodopine to morning dosing Cryotherapy as above to AKs . Increase bystolic back to 20mg daily b ut will split and take 10mg in AM and 10mg in PM Stress Reducers . Lab discussed Continue current meds and lifestyle modification Recheck lab in 6mos . Increase cymbalta to 60mg q HS Keep clonidine at current dose Recheck 2weeks Change xanax to klonopin . Increase clonidine to 0.2mg q HS Add cymbalta 30mg q HS Recheck 2weeks Stress Reducers Check fasting lab Discussed sleep study . Topical Bactroban alternating with top ical betamethasone Recheck 2weeks . Saline nasal flushes prn. Tylenol/Motr in prn headache. Notify if persists/symptoms worsening. Depomedrol 40mg IM today . Cryotherapy to lesions as above . Lab discussed Lipitor 10mg daily Coenzyme Q-10 400mg daily Vitamin D3 5000u daily Recheck lipids with LFTs in 3mos then fwup . Kenalog 40mg IM today Continue narendra and singulair Add Flonase . Will do metolazone 2.5mg prn with 6 po tassium and see if causes as severe cramping Trial of of seroquel XR 50mg q PM with evening meal and let us know how works . Rocephin and Kenalog today and finish abx given from urgent care . Cryotherapy as above to all lesions Patient wants to try no meds for insomnia for a while and see how goes . Stop Melatonin Stop Soma Trial of trazadone 75mg q HS See ENT for possible tubes as has had chronic ETD and serous otitis media with numerous steroids . Saline nasal flushes prn. Tylenol/Motr in prn headache. Notify if persists/symptoms worsening. . Sleep hygiene and sleep routine Melatonin 10mg q HS Support stockings and observe . Proceed with CT scan of head/neck Proceed with occipital nerve injections Butrans 20mcg patch weekly until can get into see Dr. Mcdonough for injections . OMT done Daily neck stretches, moist heat Increase Celebrex to 200mg BID Add flexeril . Decrease clonidine to 0.1mg TID If BP remains stable consider decreasing amlodopine Prednisone for 5 days BP check in 1mo . Pt has MARIA ELENA on with Dr. Mcdonough Continue Butrans patch Refill Hydrocodone early tomorrow . Proceed with updated MRI of LS spine Continue gabapentin and add soma and diclofenac Will likely need to go for another epidural . Injection as above Finish medrol dose pack Chiropracter this afternoon . reports extra clonidine and extra amlo dipine and extra alprazalam. extra Ketolorac and promethazine last night. Bystolic 10 mg QAM and will continue all other blood pressure meds. Pt. encouraged to rest and hydrate. Discussed stroke and OR symptoms. Pt. instructed to seek ER eval if symptoms worsen or headache persists. Pt. agrees to ER eval/EMS transport if symptoms worsen. BP re-check. . Cryotherapy as above See Derm for right ear lesion--probable MOHs procedure Increase amlodopine to 10mg daily . Pt wants to hold on any further sleep medications . Doxycycline and bactroban for foot Supportive care on ankles and knees Add norvasc for BP . Daily back stretches, moist heat, Bio freeze prn OMT done . Check CBC, TSH, Free T4, CMP, ESR, Vit D, B12 now Start Prednisone today . Continue current meds Moniter BP Cont stretches from PT 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 . Add Bystolic at 2.5mg QAM Add Robaxin 750mg 2 po q HS BP check in 2wks . Rx written for Hydrocodone 10/325mg # 240 See Ortho . will refer to [facility] for epidural ster oid injection. Pt. wants another prescription for hydrocodone at a lower dose. Discussed that she is not taking her new muscle relaxer as it makes her vomit. Will give samples of Pennsaid. Pt went to ER yesterday. Discussed that I was not willing to write another hydrocodone RX as a lower dose would not help her pain. Pt. states no liver damage has been demonstrated in past lab testing. Encouraged her to get her labs done that she has written orders for as she has not done this yet. Instructed her to use Pennsaid 30-40 gtt BID on her back. Discussed that if helpful and no problems with the medication we may increase to QID if no liver problems with her lab work. . OMT done Cont daily stretches . Continue pain meds OMT done Proceed with PT No work this summer . Start PT Long discussion about getting pain meds from only us and can only have max of 4grams of tylenol per day Change to Hydrocodone 10/325mg 1-2 po TID prn pain--#180 called to [facility] . Daily back stretches, moist heat, Biof reeze prn . Saline nasal flushes prn. Tylenol/Motr in prn headache. Notify if persists/symptoms worsening. Finish augmentin Add Medrol Dose Pack . Cryotherapy x3 to multiple lesions on both forearms . Change Diovan to Exforge 160/5mg QD OMT done to thoracics BP check in 2wks . Irritated skin tags to left neck x2 ex cised at base with scissors and base cauterized . Saline nasal flushes prn. Tylenol/Motr in prn headache. Notify if persists/symptoms worsening. Restart Nasonex Has allergy testing set for May 25 . Saline nasal flushes prn. Tylenol/Mot rin prn headache. Notify if persists/symptoms worsening. Omnaris BID plus injections . Saline nasal flushes prn. Tylenol/Motr in prn headache. Notify if persists/symptoms worsening. . Cont Clonidine as is Cont Premarin Fwup with surgery as scheduled . Check Pelvic US now Discussed Dand C vs Hysterectomy . Check fasting lab and schedule Mammogr am 2gm Na Diet Trial of Ambien 10mg qhs Fwup pending lab results Medical Equipment No Medical Equipment data Health Concerns Section Health Concerns data not found Goals Section Goals data not found Interventions Section Interventions data not found Health Status Evaluations/Outcomes Section Health Status Evaluations/Outcomes data not found Advance Directives No Advance Directive data
--- OUTSIDE RECORDS SUMMARY | 2020-03-13 03:59 | XMS REPORT | CCD ---
Author Author Gale Appiah D.O. 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 Name Role Phone María Elena Appiah D.O., PP Unavailable CCM Unavailable Summary Purpose Interface Exchange Insurance Providers Payer name Policy type / Coverage type Covered democrat ID Effective Begin Date Effective End Date [facility] Commercial Insurance [id number] Unknown Family History Family History data not found Social History Social History Element Codes Description Effective Dates Tobacco history SNOMED CT: 313582206 Never smoker 05/22/2011 Allergies, Adverse Reactions, Alerts [...] Instructions doxycycline hyclate 100 mg capsule RxNorm: 0930650 1 Cap johanna(s) Oral two times a day 03/04/2020 03/18/2020 Active prednisone 20 mg tablet RxNorm: 479981 1 Tablet(s) Oral two sawyer es a day 03/04/2020 03/09/2020 Active cyclobenzaprine 10 mg tablet RxNorm: 454950 TAKE ONE TA BLET BY MOUTH THREE TIMES A DAY NEEDED FOR MUSCLE SPASMS 02/27/2020 No Stop Date Active hydrocodone 10 mg-acetaminophen 325 mg tablet RxNorm: 768310 1-2 Tablet(s) Oral three times a day as needed for pain 02/27/2020 02/27/2020 Inactive Premarin 1.25 mg tablet RxNorm: 844523 1 Tablet(s) Oral QD 02/16/20 20 05/15/2020 Active celecoxib 200 mg capsule RxNorm: 463335 1 Capsule(s) Or al two times a day as needed for pain 02/16/2020 05/15/2020 Active Farxiga 10 mg tablet RxNorm: 8966427 1 Tablet(s) Oral QAM 02/13/2020 05/13/2020 Active Farxiga 10 mg tablet RxNorm: 3527157 1 Tablet(s) Oral QAM 02/13/2020 02/12/2020 Inactive Keflex 500 mg capsule RxNorm: 665679 1 Capsule(s) Oral two time s a day 02/12/2020 02/19/2020 Inactive Lipitor 10 mg tablet RxNorm: 586197 TAKE ONE TABLET BY MOUTH DAILY 01/23/2020 No Stop Date Active Januvia 100 mg tablet RxNorm: 215942 TAKE ONE TABLET BY MOUTH DAILY 01/22/2020 No Stop Date Active gabapentin 300 mg capsule RxNorm: 754379 TAKE ONE CAPSU LE BY MOUTH EVERY NIGHT AT BEDTIME 01/22/2020 No Stop Date Active allopurinol 300 mg tablet RxNorm: 331227 TAKE ONE TABLET BY LOPEZ TH DAILY 01/22/2020 No Stop Date Active Klor-Con 8 mEq tablet,extended release RxNorm: 895710 T FARRUKH ONE TABLET BY MOUTH TWICE A DAY 01/22/2020 No Stop Date Active doxepin 25 mg capsule RxNorm: 8770091 TAKE ONE CAPSULE B Y MOUTH EVERY NIGHT AT BEDTIME NEEDED FOR SLEEP 01/22/2020 No Stop Date Active glimepiride 4 mg tablet RxNorm: 284940 1 Tablet(s) Oral two times a day replaces 2mg dose 01/13/2020 04/12/2020 Active lisinopril 40 mg tablet RxNorm: 880719 1 Tablet(s) Oral QD repl aces 20mg dose 01/13/2020 04/12/2020 Active hydrocodone 10 mg-acetaminophen 325 mg tablet RxNorm: 441637 1-2 Tablet(s) Oral three times a day as needed for pain 01/12/2020 02/26/2020 Inactive cyclobenzaprine 10 mg tablet RxNorm: 801484 TAKE ONE TA BLET BY MOUTH THREE TIMES A DAY NEEDED FOR MUSCLE SPASMS 01/05/2020 02/26/2020 Inactive triamterene 75 mg-hydrochlorothiazide 50 mg tablet RxNorm: 3 57276 TAKE ONE TABLET BY MOUTH DAILY 12/29/2019 No Stop Date Active Klor-Con 8 mEq tablet,extended release RxNorm: 673504 T FARRUKH ONE TABLET BY MOUTH TWICE A DAY 12/19/2019 01/21/2020 Inactive allopurinol 300 mg tablet RxNorm: 263613 TAKE ONE TABLET BY LOPEZ TH DAILY 12/19/2019 01/21/2020 Inactive glimepiride 2 mg tablet RxNorm: 712250 TAKE ONE TABLET BY MOUTH TWICE A DAY 12/19/2019 01/12/2020 Inactive hydrocodone 10 mg-acetaminophen 325 mg tablet RxNorm: 223880 1-2 Tablet(s) Oral three times a day as needed for pain 12/10/2019 01/11/2020 Inactive Januvia 100 mg tablet RxNorm: 948639 1 Tablet(s) Oral QD 11/20/2019 0 11/20/2019 Inactive glimepiride 2 mg tablet RxNorm: 564006 1 Tablet(s) Oral two sawyer es a day 11/20/2019 12/18/2019 Inactive cyclobenzaprine 10 mg tablet RxNorm: 352017 TAKE ONE TA BLET BY MOUTH THREE TIMES A DAY NEEDED FOR MUSCLE SPASMS 11/17/2019 01/04/2020 Inactive doxepin 25 mg capsule RxNorm: 3549153 TAKE ONE CAPSULE B Y MOUTH EVERY NIGHT AT BEDTIME NEEDED FOR SLEEP 11/16/2019 01/21/2020 Inactive Klor-Con 8 mEq tablet,extended release RxNorm: 397802 T FARRUKH ONE TABLET BY MOUTH TWICE A DAY 11/16/2019 12/18/2019 Inactive hydrocodone 10 mg-acetaminophen 325 mg tablet RxNorm: 229718 1-2 Tablet(s) Oral three times a day as needed for pain 11/10/2019 12/09/2019 Inactive cyclobenzaprine 10 mg tablet RxNorm: 972882 TAKE ONE TA BLET BY MOUTH THREE TIMES A DAY NEEDED FOR MUSCLE SPASMS 10/23/2019 11/16/2019 Inactive duloxetine 60 mg capsule,delayed release RxNorm: 072460 1 Capsu le(s) Oral QD 10/17/2019 04/13/2020 Active Singulair 10 mg tablet RxNorm: 566693 1 Tablet(s) Oral QD 10/17/2019 04/14/2020 Active metoprolol tartrate 100 mg tablet RxNorm: 355112 1 Tabl et(s) Oral two times a day 10/17/2019 04/13/2020 Active clonidine HCl 0.1 mg tablet RxNorm: 470791 1 Tablet(s) Oral fou r times a day 10/17/2019 04/13/2020 Active celecoxib 200 mg capsule RxNorm: 322906 1 Capsule(s) Or al two times a day as needed for pain 10/17/2019 02/15/2020 Inactive lisinopril 20 mg tablet RxNorm: 308276 1 Tablet(s) Oral QD 10/17/19 20 01/12/2020 Inactive gabapentin 300 mg capsule RxNorm: 842760 1 Capsule(s) O ral every night at bedtime 10/17/2019 01/15/2020 Inactive Klor-Con 8 mEq tablet,extended release RxNorm: 144433 1 Tablet(s) Oral two times a day 10/17/2019 11/15/2019 Inactive Januvia 100 mg tablet RxNorm: 861369 1 Tablet(s) Oral QD 10/17/2019 0 01/12/2020 Inactive Lipitor 10 mg tablet RxNorm: 628675 1 Tablet(s) Oral QD 10/17/2019 Inactive Steglatro 15 mg tablet RxNorm: 7770931 1 Tablet(s) Oral QD 10/17/19 20 02/12/2020 Inactive Glyxambi 25 mg-5 mg tablet RxNorm: 7047262 1 Tablet(s) Oral QD 01/202010/16/2019 Inactive Patient will bring in copay discount card as well Glyxambi 25 mg-5 mg tablet RxNorm: 7233577 1 Tablet(s) Oral QD 01/202010/14/2019 Inactive Patient will bring in copay discount card as well Keflex 500 mg capsule RxNorm: 332661 1 Capsule(s) Oral two time s a day 10/07/2019 10/14/2019 Inactive Premarin 1.25 mg tablet RxNorm: 364956 1 Tablet(s) Oral QD 09/30/19 20 02/15/2020 Inactive hydrocodone 10 mg-acetaminophen 325 mg tablet RxNorm: 304414 1-2 Tablet(s) Oral three times a day as needed for pain 09/30/2019 09/30/2019 Inactive baclofen 10 mg tablet RxNorm: 648306 TAKE ONE TABLET BY MOUTH THREE TIMES A DAY NEEDED 09/19/2019 No Stop Date Active gabapentin 300 mg capsule RxNorm: 137960 TAKE ONE CAPSU LE BY MOUTH EVERY NIGHT AT BEDTIME 09/19/2019 10/16/2019 Inactive Klor-Con 8 mEq tablet,extended release RxNorm: 184210 T FARRUKH ONE TABLET BY MOUTH TWICE A DAY 1 Tablet(s) Oral two times a day 09/19/2019 10/16/2019 Renu ctive hydrocodone 10 mg-acetaminophen 325 mg tablet RxNorm: 937945 1-2 Tablet(s) Oral three times a day as needed for pain 09/19/2019 09/29/2019 Inactive duloxetine 60 mg capsule,delayed release RxNorm: 775559 TAKE ONE CAPSULE BY MOUTH DAILY 09/11/2019 10/16/2019 Inactive Lipitor 10 mg tablet RxNorm: 025127 TAKE ONE TABLET BY MOUTH AT BEDTIME 09/11/2019 10/16/2019 Inactive lisinopril 20 mg tablet RxNorm: 611785 TAKE ONE TABLET BY MOUTH DAILY .... THIS REPLACE 10MG TABLETS 09/11/2019 10/16/2019 Inactive triamterene 75 mg-hydrochlorothiazide 50 mg tablet RxNorm: 3 50628 TAKE ONE TABLET BY MOUTH DAILY 09/11/2019 12/28/2019 Inactive allopurinol 300 mg tablet RxNorm: 714954 TAKE ONE TABLET BY LOPEZ TH DAILY 09/11/2019 12/18/2019 Inactive celecoxib 200 mg capsule RxNorm: 583512 TAKE ONE CAPSUL E BY MOUTH TWICE A DAY NEEDED FOR PAIN 09/11/2019 10/16/2019 Inactive clonidine HCl 0.1 mg tablet RxNorm: 936491 TAKE ONE TAB LET BY MOUTH FOUR TIMES A DAY 09/11/2019 10/16/2019 Inactive doxepin 25 mg capsule RxNorm: 7007871 1 Capsule(s) Oral every night at bedtime as needed for sleep 08/21/2019 11/15/2019 Inactive hydrocodone 10 mg-acetaminophen 325 mg tablet RxNorm: 662473 1-2 Tablet(s) PO TID 08/12/2019 09/29/2019 Inactive as needed for pa in - Previous quantity #240, will start dosing for #180 in April [address] Ignacio. Medrol (Dustin) 4 mg tablets in a dose pack RxNorm: 928274 Tablet(s) Oral As Directed 07/21/2019 09/29/2019 Inactive Premarin 1.25 mg tablet RxNorm: 998637 1 Tablet(s) Oral QD 07/02/2009/29/2019 Inactive hydrocodone 10 mg-acetaminophen 325 mg tablet RxNorm: 441637 1-2 Tablet(s) PO TID 07/01/2019 08/11/2019 Inactive as needed for pa in - Previous quantity #240, will start dosing for #180 in April [address] Ignacio. gabapentin 300 mg capsule RxNorm: 691385 1 Capsule(s) PO QHS 201809/18/2019 Inactive celecoxib 200 mg capsule RxNorm: 432079 1 Capsule(s) Or al two times a day as needed for pain 06/27/2019 06/27/2019 Inactive doxepin 25 mg capsule RxNorm: 5472150 TAKE ONE CAPSULE B Y MOUTH EVERY NIGHT AT BEDTIME NEEDED FOR SLEEP 06/24/2019 08/20/2019 Inactive Singulair 10 mg tablet RxNorm: 469915 TAKE ONE TABLET BY MOUTH JOSÉ Y 06/24/2019 10/16/2019 Inactive furosemide 40 mg tablet RxNorm: 947143 TAKE ONE TABLET BY MOUTH EVERY MORNING NEEDED FOR EDEMA . TAKE WITH POTASSIUM 06/24/2019 01/12/2020 Inactive lisinopril 20 mg tablet RxNorm: 090742 TAKE ONE TABLET BY MOUTH DAILY .... THIS REPLACE 10MG TABLETS 06/24/2019 09/10/2019 Inactive nystatin-triamcinolone 100,000 unit/g-0.1 % topical cream Rx Norm: 1806973 1 Application Topical two times a day 06/12/2019 06/19/2019 Inactive apply BID for 1 week nystatin-triamcinolone 100,000 unit/g-0.1 % topical cream Rx Norm: 6307628 1 Application Topical two times a day 06/12/2019 06/11/2019 Inactive apply BID for 1 week hydrocodone 10 mg-acetaminophen 325 mg tablet RxNorm: 184367 1-2 Tablet(s) PO QID as needed for pain MUST LAST 30 DAYS 05/28/2019 06/26/2019 Inactiv e (Response to an electronic controlled substance refill request - RxReferenceNumber: [id number]) baclofen 20 mg tablet RxNorm: 775267 1 Tablet(s) PO TID as needed for muscle spasm 05/19/2019 05/27/2019 Inactive gabapentin 300 mg capsule RxNorm: 229905 1 Capsule(s) PO QHS 201805/27/2019 Inactive lisinopril 20 mg tablet RxNorm: 828321 1 Tablet(s) PO Q D TAKE ONE TABLET BY MOUTH DAILY, REPLACES 10 MG DOSE 05/19/2019 06/23/2019 Inactive doxepin 25 mg capsule RxNorm: 9485348 TAKE ONE CAPSULE B Y MOUTH EVERY NIGHT AT BEDTIME NEEDED FOR SLEEP 05/16/2019 06/14/2019 Inactive lisinopril 20 mg tablet RxNorm: 760240 TAKE ONE TABLET BY MOUTH DAILY, REPLACES 10 MG DOSE 05/16/2019 05/18/2019 Inactive Singulair 10 mg tablet RxNorm: 772354 TAKE ONE TABLET BY MOUTH JOSÉ Y 05/16/2019 06/14/2019 Inactive gabapentin 300 mg capsule RxNorm: 292633 1 Capsule(s) PO QHS 201805/04/2019 Inactive estropipate 1.5 mg tablet RxNorm: 468758 1 Tablet(s) PO QD 05/05/2005/27/2019 Inactive estropipate 1.5 mg tablet RxNorm: 179698 1 Tablet(s) PO QD 05/05/20 19 05/04/2019 Inactive gabapentin 300 mg capsule RxNorm: 729028 1 Capsule(s) PO QHS 201805/18/2019 Inactive hydrocodone 10 mg-acetaminophen 325 mg tablet RxNorm: 792209 1-2 Tablet(s) PO QID as needed for pain MUST LAST 30 DAYS 04/25/2019 05/24/2019 Inactiv e (Response to an electronic controlled substance refill request - RxReferenceNumber: [id number]) cyclobenzaprine 10 mg tablet RxNorm: 807527 TAKE ONE TA BLET BY MOUTH THREE TIMES A DAY NEEDED FOR MUSCLE SPASMS 04/24/2019 05/18/2019 Inactive metoprolol tartrate 100 mg tablet RxNorm: 759330 TAKE O NE TABLET BY MOUTH TWICE A DAY 04/24/2019 10/16/2019 Inactive Lyrica 75 mg capsule RxNorm: 972319 1 Capsule(s) PO QHS 03/25/2019 Inactive duloxetine 60 mg capsule,delayed release RxNorm: 559360 TAKE ONE CAPSULE BY MOUTH DAILY 03/21/2019 05/19/2019 Inactive triamterene 75 mg-hydrochlorothiazide 50 mg tablet RxNorm: 3 61894 TAKE ONE TABLET BY MOUTH DAILY 03/21/2019 05/19/2019 Inactive Klor-Con 8 mEq tablet,extended release RxNorm: 791747 T FARRUKH ONE TABLET BY MOUTH TWICE A DAY 03/21/2019 09/18/2019 Inactive Lipitor 10 mg tablet RxNorm: 081939 TAKE ONE TABLET BY MOUTH AT BEDTIME 03/21/2019 09/10/2019 Inactive clonidine HCl 0.1 mg tablet RxNorm: 220523 TAKE ONE TAB LET BY MOUTH FOUR TIMES A DAY 03/21/2019 05/19/2019 Inactive allopurinol 300 mg tablet RxNorm: 772702 TAKE ONE TABLET BY LOPEZ TH DAILY 03/21/2019 05/19/2019 Inactive hydrocodone 10 mg-acetaminophen 325 mg tablet RxNorm: 432597 1-2 Tablet(s) PO QID as needed for pain MUST LAST 30 DAYS 02/28/2019 03/29/2019 Inactiv e (Response to an electronic controlled substance refill request - RxReferenceNumber: [id number]) furosemide 40 mg tablet RxNorm: 957749 TAKE ONE TABLET BY MOUTH EVERY MORNING NEEDED FOR EDEMA . TAKE WITH POTASSIUM 02/21/2019 03/22/2019 Inactive cyclobenzaprine 10 mg tablet RxNorm: 138468 TAKE ONE TA BLET BY MOUTH THREE TIMES A DAY NEEDED FOR MUSCLE SPASMS 02/21/2019 04/21/2019 Inactive lisinopril 20 mg tablet RxNorm: 856913 TAKE ONE TABLET BY MOUTH DAILY, REPLACES 10 MG DOSE 02/21/2019 05/15/2019 Inactive doxepin 25 mg capsule RxNorm: 4741604 TAKE ONE CAPSULE B Y MOUTH EVERY NIGHT AT BEDTIME NEEDED FOR SLEEP 02/21/2019 05/15/2019 Inactive nystatin 100,000 unit/gram topical cream RxNorm: 802162 APPLY TO AFFECTED AREA(S) TWO TIMES A DAY 02/21/2019 03/22/2019 Inactive estradiol 1 mg tablet RxNorm: 524154 2 Tablet(s) PO QD replaces premarin 01/22/2019 05/04/2019 Inactive lisinopril 20 mg tablet RxNorm: 484537 TAKE ONE TABLET BY MOUTH DAILY, REPLACES 10 MG DOSE 01/20/2019 02/18/2019 Inactive cyclobenzaprine 10 mg tablet RxNorm: 455118 TAKE ONE TA BLET BY MOUTH THREE TIMES A DAY NEEDED FOR MUSCLE SPASMS 01/20/2019 02/18/2019 Inactive metoprolol tartrate 100 mg tablet RxNorm: 705126 TAKE O NE TABLET BY MOUTH TWICE A DAY 01/20/2019 02/18/2019 Inactive cyclobenzaprine 10 mg tablet RxNorm: 659349 TAKE ONE TA BLET BY MOUTH THREE TIMES A DAY NEEDED FOR MUSCLE SPASMS 12/19/2018 01/17/2019 Inactive lisinopril 20 mg tablet RxNorm: 372673 TAKE ONE TABLET BY MOUTH DAILY, REPLACES 10 MG DOSE 12/19/2018 01/17/2019 Inactive duloxetine 60 mg capsule,delayed release RxNorm: 837160 TAKE ONE CAPSULE BY MOUTH DAILY 12/19/2018 01/17/2019 Inactive Lipitor 10 mg tablet RxNorm: 432793 TAKE ONE TABLET BY MOUTH AT BEDTIME 12/19/2018 01/17/2019 Inactive cyclobenzaprine 10 mg tablet RxNorm: 348142 1 Tablet(s) PO TID as needed for muscle spasm 11/19/2018 12/18/2018 Inactive Singulair 10 mg tablet RxNorm: 891303 1 Tablet(s) PO QD 11/19/2018 Inactive lisinopril 20 mg tablet RxNorm: 536881 TAKE ONE TABLET BY MOUTH DAILY, REPLACES 10 MG DOSE 11/15/2018 12/18/2018 Inactive hydrocodone 10 mg-acetaminophen 325 mg tablet RxNorm: 504919 1-2 Tablet(s) PO QID as needed for pain MUST LAST 30 DAYS 11/13/2018 12/12/2018 Inactiv e (Response to an electronic controlled substance refill request - RxReferenceNumber: [id number]) nystatin 100,000 unit/gram topical cream RxNorm: 668599 APPLY TO AFFECTED AREA(S) TWO TIMES A DAY 10/23/2018 11/06/2018 Inactive lisinopril 20 mg tablet RxNorm: 749753 1 Tablet(s) PO QD replac es 10mg dose 10/18/2018 11/14/2018 Inactive hydrocodone 10 mg-acetaminophen 325 mg tablet RxNorm: 058152 1-2 Tablet(s) QID as needed for pain MUST LAST 30 DAYS 10/08/2018 11/06/2018 Inactive (Response to an electronic controlled substance refill request - [id number]) lisinopril 10 mg tablet RxNorm: 414775 1 Tablet(s) PO QD 10/03/2018 0 01/21/2019 Inactive Celebrex 200 mg capsule RxNorm: 729082 TAKE ONE CAPSULE BY MOUT H TWICE A DAY 09/30/2018 05/04/2019 Inactive cyclobenzaprine 10 mg tablet RxNorm: 126264 TAKE ONE TA BLET BY MOUTH THREE TIMES A DAY NEEDED FOR MUSCLE SPASMS 09/30/2018 11/18/2018 Inactive doxepin 25 mg capsule RxNorm: 5026611 TAKE ONE CAPSULE B Y MOUTH EVERY NIGHT AT BEDTIME NEEDED 09/05/2018 10/16/2018 Inactive omeprazole 40 mg capsule,delayed release RxNorm: 362334 TAKE ONE CAPSULE BY MOUTH DAILY 09/05/2018 01/21/2019 Inactive furosemide 40 mg tablet RxNorm: 654908 TAKE ONE TABLET BY MOUTH EVERY MORNING NEEDED FOR EDEMA . TAKE WITH POTASSIUM 09/05/2018 11/03/2018 Inactive phentermine 37.5 mg tablet RxNorm: 010439 1 Tablet(s) PO QAM 201701/21/2019 Inactive doxepin 25 mg capsule RxNorm: 5240377 1 Capsule(s) PO QH S as needed for sleep TAKE ONE CAPSULE BY MOUTH EVERY NIGHT AT BEDTIME NEEDED 08/27/2018 09/04/2018 Inactive Keflex 500 mg capsule RxNorm: 179163 1 Capsule(s) PO TID 08/09/2018 1 10/19/2017 Inactive Diflucan 100 mg tablet RxNorm: 415248 1 Tablet(s) PO QD 08/09/2018 Inactive Premarin 1.25 mg tablet RxNorm: 377034 2 Tablet(s) PO QD 08/09/2018 0 05/04/2019 Inactive Zofran ODT 4 mg disintegrating tablet RxNorm: 421355 1 Tablet(s) PO Q4H as needed for nausea 08/09/2018 01/21/2019 Inactive metoprolol tartrate 100 mg tablet RxNorm: 547045 TAKE O NE TABLET BY MOUTH TWICE A DAY 2018 10/04/2018 Inactive doxepin 25 mg capsule RxNorm: 7513772 TAKE ONE CAPSULE B Y MOUTH EVERY NIGHT AT BEDTIME NEEDED 2018 08/26/2018 Inactive cyclobenzaprine 10 mg tablet RxNorm: 210185 TAKE ONE TA BLET BY MOUTH THREE TIMES A DAY NEEDED FOR MUSCLE SPASMS 2018 09/29/2018 Inactive hydrocodone 10 mg-acetaminophen 325 mg tablet RxNorm: 421984 1-2 Tablet(s) QID as needed for pain MUST LAST 30 DAYS 07/29/2018 08/27/2018 Inactive (Response to an electronic controlled substance refill request - RxReferenceNumber: [id number]) nystatin 100,000 unit/gram topical powder RxNorm: 971079 Applic ation TOP BID 07/22/2018 08/04/2018 Inactive doxepin 25 mg capsule RxNorm: 0222777 1 Capsule(s) PO QHS as needed 07/22/2018 08/05/2018 Inactive triamterene 75 mg-hydrochlorothiazide 50 mg tablet RxNorm: 3 77625 TAKE ONE TABLET BY MOUTH DAILY 07/05/2018 10/02/2018 Inactive duloxetine 60 mg capsule,delayed release RxNorm: 301046 TAKE ONE CAPSULE BY MOUTH DAILY 07/05/2018 09/02/2018 Inactive Klor-Con 8 mEq tablet,extended release RxNorm: 770595 T FARRUKH ONE TABLET BY MOUTH TWICE A DAY 07/05/2018 10/02/2018 Inactive Lipitor 10 mg tablet RxNorm: 837889 TAKE ONE TABLET BY MOUTH AT BEDTIME 07/05/2018 09/02/2018 Inactive allopurinol 300 mg tablet RxNorm: 282852 TAKE ONE TABLET BY LOPEZ TH DAILY 07/05/2018 10/02/2018 Inactive clonidine HCl 0.1 mg tablet RxNorm: 549196 TAKE ONE TAB LET BY MOUTH FOUR TIMES A DAY 07/05/2018 10/02/2018 Inactive hydrocodone 10 mg-acetaminophen 325 mg tablet RxNorm: 131897 1-2 Tablet(s) QID as needed for pain MUST LAST 30 DAYS 06/28/2018 07/27/2018 Inactive (Response to an electronic controlled substance refill request - RxReferenceNumber: [id number]) MediHoney (calcium alginate-honey) 4" X 5" bandage RxNorm: 1 Application TOP QD 06/17/2018 06/26/2018 Inactive honey-hydrocolloid dressing 4" X 5" RxNorm: 1 Application TOP QD 06/17/2018 07/16/2018 Inactive furosemide 40 mg tablet RxNorm: 643913 TAKE ONE TABLET BY MOUTH EVERY MORNING NEEDED FOR EDEMA . TAKE WITH POTASSIUM 06/10/2018 07/09/2018 Inactive This is a refill request. hydrocodone 10 mg-acetaminophen 325 mg tablet RxNorm: 776116 1-2 Tablet(s) QID as needed for pain MUST LAST 30 DAYS 05/30/2018 06/27/2018 Inactive (Response to an electronic controlled substance refill request - RxReferenceNumber: [id number]) acyclovir 800 mg tablet RxNorm: 100025 1 Tablet(s) PO 5x day 201705/22/2018 Inactive Premarin 1.25 mg tablet RxNorm: 048466 1-2 Tablet(s) PO QD 05/15/20 18 07/13/2018 Inactive cyclobenzaprine 10 mg tablet RxNorm: 657957 1 Tablet(s) PO TID as needed for muscle spasm 05/09/2018 05/08/2018 Inactive Medrol (Dustin) 4 mg tablets in a dose pack RxNorm: 100557 Tablet(s) PO As Directed 05/02/2018 06/16/2018 Inactive hydrocodone 10 mg-acetaminophen 325 mg tablet RxNorm: 586042 1-2 Tablet(s) QID as needed for pain MUST LAST 30 DAYS 04/30/2018 05/29/2018 Inactive (Response to an electronic controlled substance refill request - RxReferenceNumber: [id number]) duloxetine 60 mg capsule,delayed release RxNorm: 230747 TAKE ONE CAPSULE BY MOUTH DAILY 04/16/2018 05/15/2018 Inactive Celebrex 200 mg capsule RxNorm: 389840 TAKE ONE CAPSULE BY MOUT H TWICE A DAY 04/16/2018 06/14/2018 Inactive Singulair 10 mg tablet RxNorm: 709736 TAKE ONE TABLET BY MOUTH JOSÉ Y 04/16/2018 11/19/2018 Inactive Lipitor 10 mg tablet RxNorm: 287865 TAKE ONE TABLET BY MOUTH AT BEDTIME 04/16/2018 05/15/2018 Inactive hydrocodone 10 mg-acetaminophen 325 mg tablet RxNorm: 724484 1-2 Tablet(s) QID as needed for pain MUST LAST 30 DAYS 03/29/2018 04/27/2018 Inactive (Response to an electronic controlled substance refill request - RxReferenceNumber: [id number]) cyclobenzaprine 10 mg tablet RxNorm: 828394 1 Tablet(s) PO TID as needed for muscle spasm 03/18/2018 05/09/2018 Inactive omeprazole 40 mg capsule,delayed release RxNorm: 497400 1 Capsu le(s) PO QD 02/26/2018 08/24/2018 Inactive hydrocodone 10 mg-acetaminophen 325 mg tablet RxNorm: 384063 1-2 Tablet(s) QID as needed for pain MUST LAST 30 DAYS 02/26/2018 03/27/2018 Inactive (Response to an electronic controlled substance refill request - RxReferenceNumber: [id number]) metoprolol tartrate 100 mg tablet RxNorm: 766658 1 Tablet(s) PO BID 02/18/2018 08/05/2018 Inactive Lyrica 75 mg capsule RxNorm: 569369 1 Capsule(s) PO QHS 01/30/2018 Inactive phentermine 37.5 mg tablet RxNorm: 975065 1 Tablet(s) PO QAM 201706/16/2018 Inactive hydrocodone 10 mg-acetaminophen 325 mg tablet RxNorm: 541503 1-2 Tablet(s) QID as needed for pain MUST LAST 30 DAYS 01/29/2018 02/25/2018 Inactive (Response to an electronic controlled substance refill request - RxReferenceNumber: [id number]) Klor-Con 8 mEq tablet,extended release RxNorm: 843401 1 Tablet( s) PO BID 01/14/2018 07/04/2018 Inactive allopurinol 300 mg tablet RxNorm: 359970 1 Tablet(s) PO QD 01/15/2007/04/2018 Inactive Lipitor 10 mg tablet RxNorm: 563852 1 Tablet(s) PO QHS 01/14/201812/2017 Inactive triamterene 75 mg-hydrochlorothiazide 50 mg tablet RxNorm: 3 26289 1 Tablet(s) PO QD 01/14/2018 07/04/2018 Inactive hydrocodone 10 mg-acetaminophen 325 mg tablet RxNorm: 238166 1-2 Tablet(s) QID as needed for pain MUST LAST 30 DAYS 12/27/2017 01/25/2018 Inactive (Response to an electronic controlled substance refill request - RxReferenceNumber: [id number]) Onglyza 5 mg tablet RxNorm: 030445 1 Tablet(s) PO QD 12/18/201701/29 Inactive metformin 500 mg tablet RxNorm: 935055 1 Tablet(s) PO BID 12/11/2017 12/10/2017 Inactive metformin 500 mg tablet RxNorm: 825423 1 Tablet(s) PO BID 12/11/2017 12/17/2017 Inactive furosemide 40 mg tablet RxNorm: 465940 1 Tablet(s) PO Q AM prn edema--take with potassium 12/11/2017 06/08/2018 Inactive cyclobenzaprine 10 mg tablet RxNorm: 865615 1 Tablet(s) PO TID as needed for muscle spasm 12/11/2017 03/18/2018 Inactive hydrocodone 10 mg-acetaminophen 325 mg tablet RxNorm: 674343 1-2 Tablet(s) QID as needed for pain MUST LAST 30 DAYS 10/23/2017 11/21/2017 Inactive (Response to an electronic controlled substance refill request - RxReferenceNumber: [id number]) Lipitor 10 mg tablet RxNorm: 652529 1 Tablet(s) PO QHS 10/16/201703/2018 Inactive cyclobenzaprine 10 mg tablet RxNorm: 204016 1 Tablet(s) PO TID as needed for muscle spasm 10/09/2017 12/10/2017 Inactive hydroxyzine HCl 25 mg tablet RxNorm: 566554 1 Tablet(s) PO BID as needed for anxiety 09/20/2017 01/29/2018 Inactive Effexor XR 75 mg capsule,extended release RxNorm: 835047 1 Caps ule(s) PO QD 09/20/2017 01/29/2018 Inactive metoprolol tartrate 100 mg tablet RxNorm: 570302 1 Tablet(s) PO BID 08/20/2017 02/18/2018 Inactive baclofen 20 mg tablet RxNorm: 761278 1 Tablet(s) PO TID as needed for muscle spasm 08/20/2017 01/21/2019 Inactive clonidine HCl 0.1 mg tablet RxNorm: 066750 1 Tablet(s) PO QID 08/2005/16/2018 Inactive Seroquel 25 mg tablet RxNorm: 968800 1 Tablet(s) PO QHS 08/17/2017 Inactive Seroquel 25 mg tablet RxNorm: 489048 1 Tablet(s) PO QHS 08/17/2017 Inactive Diflucan 100 mg tablet RxNorm: 761820 TAKE ONE TABLET BY MOUTH JOSÉ Y 07/25/2017 08/07/2017 Inactive hydrocodone 10 mg-acetaminophen 325 mg tablet RxNorm: 256283 1-2 Tablet(s) QID as needed for pain MUST LAST 30 DAYS 07/19/2017 08/17/2017 Inactive (Response to an electronic controlled substance refill request - RxReferenceNumber: [id number]) clindamycin 300 mg capsule RxNorm: 219354 1 Capsule(s) PO TID 07/1907/28/2017 Inactive clotrimazole-betamethasone 1 %-0.05 % topical cream RxNorm: 518703 Application TOP BID to elbow rash 07/19/2017 06/16/2018 Inactive Singulair 10 mg tablet RxNorm: 746036 Tablet(s) TAKE ONE TABLET BY MOUTH DAILY 07/18/2017 04/13/2018 Inactive triamterene 75 mg-hydrochlorothiazide 50 mg tablet RxNorm: 3 52604 1 Tablet(s) PO QD 07/18/2017 01/14/2018 Inactive Celebrex 200 mg capsule RxNorm: 451098 Capsule(s) TAKE ONE CAPSULE BY MOUTH TWICE A DAY 07/18/2017 10/15/2017 Inactive hydrocodone 10 mg-acetaminophen 325 mg tablet RxNorm: 378728 1-2 Tablet(s) QID as needed for pain MUST LAST 30 DAYS 06/19/2017 07/18/2017 Inactive (Response to an electronic controlled substance refill request - RxReferenceNumber: [id number]) hydrocodone 10 mg-acetaminophen 325 mg tablet RxNorm: 607222 1-2 Tablet(s) QID as needed for pain MUST LAST 30 DAYS 06/19/2017 06/18/2017 Inactive (Response to an electronic controlled substance refill request - RxReferenceNumber: [id number]) baclofen 20 mg tablet RxNorm: 210476 1 Tablet(s) PO TID as needed for muscle spasm 06/18/2017 08/20/2017 Inactive Medrol (Dustin) 4 mg tablets in a dose pack RxNorm: 098495 Tablet(s) PO As Directed 06/05/2017 07/18/2017 Inactive omeprazole 40 mg capsule,delayed release RxNorm: 975857 1 Capsu le(s) PO QD 04/20/2017 10/16/2017 Inactive Premarin 1.25 mg tablet RxNorm: 777981 1-2 Tablet(s) PO QD 04/11/20 17 05/15/2018 Inactive duloxetine 60 mg capsule,delayed release RxNorm: 910761 1 Capsu le(s) PO QD 04/11/2017 09/19/2017 Inactive furosemide 40 mg tablet RxNorm: 562462 1 Tablet(s) PO Q AM prn edema--take with potassium 04/11/2017 12/11/2017 Inactive Klor-Con 8 mEq tablet,extended release RxNorm: 401055 1 Tablet( s) PO BID 04/11/2017 01/14/2018 Inactive Lipitor 10 mg tablet RxNorm: 925013 1 Tablet(s) PO QHS 04/11/201702/2018 Inactive amlodipine 5 mg-benazepril 20 mg capsule RxNorm: 734555 1 Capsu le(s) PO QD 04/11/2017 01/29/2018 Inactive allopurinol 300 mg tablet RxNorm: 827214 1 Tablet(s) PO QD 04/11/20 17 01/14/2018 Inactive clonidine HCl 0.1 mg tablet RxNorm: 511291 1 Tablet(s) PO QID 04/0508/19/2017 Inactive baclofen 20 mg tablet RxNorm: 099950 1 Tablet(s) PO TID as needed for muscle spasm 04/02/2017 06/18/2017 Inactive Premarin 1.25 mg tablet RxNorm: 912785 1-2 Tablet(s) PO QD 03/20/20 17 04/10/2017 Inactive hydrocodone 10 mg-acetaminophen 325 mg tablet RxNorm: 284694 1-2 Tablet(s) QID as needed for pain MUST LAST 30 DAYS 03/14/2017 01/21/2019 Inactive (Response to an electronic controlled substance refill request - RxReferenceNumber: [id number]) metoprolol tartrate 100 mg tablet RxNorm: 626098 1 Tablet(s) PO BID 02/12/2017 08/20/2017 Inactive hydrocodone 10 mg-acetaminophen 325 mg tablet RxNorm: 657609 1-2 Tablet(s) QID as needed for pain MUST LAST 30 DAYS 02/08/2017 03/09/2017 Inactive (Response to an electronic controlled substance refill request - RxReferenceNumber: [id number]) metoprolol tartrate 100 mg tablet RxNorm: 908125 TAKE O NE TABLET BY MOUTH TWICE A DAY 01/11/2017 02/12/2017 Inactive metoprolol tartrate 100 mg tablet RxNorm: 471503 1 Tablet(s) PO BID 12/18/2016 12/17/2016 Inactive metoprolol tartrate 100 mg tablet RxNorm: 281199 1 Tablet(s) PO BID 12/18/2016 01/10/2017 Inactive furosemide 40 mg tablet RxNorm: 225531 1 Tablet(s) PO Q AM prn edema--take with potassium 12/13/2016 02/10/2017 Inactive amitriptyline 100 mg tablet RxNorm: 988639 1 Tablet(s) PO QHS 11/2812/12/2016 Inactive baclofen 20 mg tablet RxNorm: 178853 1 Tablet(s) PO TID as needed for muscle spasm 11/14/2016 04/01/2017 Inactive triamterene 75 mg-hydrochlorothiazide 50 mg tablet RxNorm: 3 36845 1 Tablet(s) PO QD 11/14/2016 11/13/2016 Inactive metolazone 2.5 mg tablet RxNorm: 878667 TAKE ONE TABLET BY MOUTH DAILY NEEDED FOR EDEMA 11/14/2016 12/12/2016 Inactive triamterene 75 mg-hydrochlorothiazide 50 mg tablet RxNorm: 3 43498 1 Tablet(s) PO QD 11/14/2016 07/18/2017 Inactive amitriptyline 50 mg tablet RxNorm: 307514 TAKE ONE TABL ET BY MOUTH AT BEDTIME NEEDED FOR SLEEP 11/14/2016 11/27/2016 Inactive Cymbalta 60 mg capsule,delayed release RxNorm: 742120 1 Capsule (s) PO QHS 11/14/2016 12/12/2016 Inactive clonidine HCl 0.1 mg tablet RxNorm: 167890 1 Tablet(s) PO QID 11/1304/04/2017 Inactive amitriptyline 50 mg tablet RxNorm: 021335 1 Tablet(s) P O QHS as needed for sleep 11/01/2016 11/27/2016 Inactive duloxetine 60 mg capsule,delayed release RxNorm: 880399 TAKE ONE CAPSULE BY MOUTH DAILY 10/20/2016 01/17/2017 Inactive allopurinol 300 mg tablet RxNorm: 606821 TAKE ONE TABLET BY LOPEZ TH DAILY 10/20/2016 01/16/2017 Inactive Lyrica 75 mg capsule RxNorm: 337232 TAKE ONE CAPSULE BY MOUTH EVERY NIGHT AT BEDTIME 10/20/2016 12/10/2016 Inactive Klor-Con 8 mEq tablet,extended release RxNorm: 275007 T FARRUKH ONE TABLET BY MOUTH TWICE A DAY 10/20/2016 01/17/2017 Inactive Celebrex 200 mg capsule RxNorm: 166089 TAKE ONE CAPSULE BY MOUT H TWICE A DAY 10/20/2016 07/18/2017 Inactive Bystolic 10 mg tablet RxNorm: 419291 TAKE ONE TABLET BY MOUTH EVERY NIGHT AT BEDTIME 10/20/2016 12/17/2016 Inactive amlodipine 5 mg-benazepril 20 mg capsule RxNorm: 176299 TAKE ONE CAPSULE BY MOUTH EVERY NIGHT AT BEDTIME -- TO REPLACE AMLODOPINE 10/20/20162016 Inactive Lipitor 10 mg tablet RxNorm: 257821 TAKE ONE TABLET BY MOUTH EVERY NIGHT AT BEDTIME 10/20/2016 01/17/2017 Inactive alprazolam 0.5 mg tablet RxNorm: 663571 3 Tablet(s) PO QHS as needed for sleep/anxiety 09/20/2016 10/31/2016 Inactive Tamiflu 75 mg capsule RxNorm: 120177 1 Capsule(s) PO QD 09/19/2016 Inactive Lyrica 75 mg capsule RxNorm: 113787 1 Capsule(s) PO QHS 09/19/2016 Inactive prednisone 20 mg tablet RxNorm: 341478 1 Tablet(s) PO QD 08/10/2016 1 10/17/2015 Inactive doxycycline hyclate 100 mg capsule RxNorm: 9858271 1 Capsule(s) PO BID 08/10/2016 08/19/2016 Inactive Medrol (Dustin) 4 mg tablets in a dose pack RxNorm: 782193 Tablet(s) PO As Directed 07/31/2016 08/22/2016 Inactive Singulair 10 mg tablet RxNorm: 757345 TAKE ONE TABLET BY MOUTH JOSÉ Y 07/27/2016 07/18/2017 Inactive hydrocodone 10 mg-acetaminophen 325 mg tablet RxNorm: 605116 1-2 Tablet(s) QID as needed for pain MUST LAST 30 DAYS 07/26/2016 08/24/2016 Inactive (Response to an electronic controlled substance refill request - RxReferenceNumber: [id number]) alprazolam 0.5 mg tablet RxNorm: 905271 3 Tablet(s) PO QHS as needed for anxiety or sleep 07/26/2016 09/20/2016 Inactive clindamycin 300 mg capsule RxNorm: 958293 1 Capsule(s) PO TID 07/2007/29/2016 Inactive Diflucan 100 mg tablet RxNorm: 095820 1 Tablet(s) PO QD 07/20/2016 Inactive Levaquin 500 mg tablet RxNorm: 704953 1 Tablet(s) PO QD 07/17/2016 Inactive Levaquin 500 mg tablet RxNorm: 391668 1 Tablet(s) PO QD 07/10/2016 Inactive Levaquin 500 mg tablet RxNorm: 367100 1 Tablet(s) PO QD 07/10/2016 Inactive mupirocin 2 % topical ointment RxNorm: 304891 TOP Apply topically to affected areas twice daily 07/06/2016 09/18/2016 Inactive Singulair 10 mg tablet RxNorm: 637344 TAKE ONE TABLET BY MOUTH JOSÉ Y 06/21/2016 01/21/2019 Inactive alprazolam 0.5 mg tablet RxNorm: 855767 TAKE THREE TABL ETS BY MOUTH AT BEDTIME NEEDED FOR SLEEP OR STRESS 05/22/2016 06/20/2016 Inactive triamterene 75 mg-hydrochlorothiazide 50 mg tablet RxNorm: 3 18165 1 Tablet(s) PO QD 04/26/2016 01/12/2020 Inactive Premarin 1.25 mg tablet RxNorm: 775605 1-2 Tablet(s) PO QD 04/26/20 16 03/20/2017 Inactive Klor-Con 8 mEq tablet,extended release RxNorm: 135120 1 Tablet( s) PO BID 04/26/2016 10/19/2016 Inactive Celebrex 200 mg capsule RxNorm: 342205 1 Capsule(s) PO BID TAKE ONE CAPSULE BY MOUTH EVERY DAY 04/26/2016 10/19/2016 Inactive Lipitor 10 mg tablet RxNorm: 293562 1 Tablet(s) PO QHS 04/26/201605/2017 Inactive allopurinol 300 mg tablet RxNorm: 652291 1 Tablet(s) PO QD TAKE ONE TABLET BY MOUTH EVERY DAY 04/26/2016 10/19/2016 Inactive amlodipine 5 mg-benazepril 20 mg capsule RxNorm: 393046 1 Capsule(s) PO QHS replaces amlodopine 04/26/2016 10/19/2016 Inactive duloxetine 60 mg capsule,delayed release RxNorm: 741019 1 Capsu le(s) PO QD 04/26/2016 10/19/2016 Inactive Bystolic 10 mg tablet RxNorm: 667198 1 Tablet(s) PO QHS 04/26/2016 Inactive Singulair 10 mg tablet RxNorm: 803790 1 Tablet(s) PO QD TAKE ONE TABLET BY MOUTH DAILY 04/26/2016 06/20/2016 Inactive clonidine HCl 0.1 mg tablet RxNorm: 342235 1 Tablet(s) PO QID 04/2610/22/2016 Inactive hydrocodone 10 mg-acetaminophen 325 mg tablet RxNorm: 243956 1-2 Tablet(s) QID as needed for pain TAKE ONE TO TWO TABLETS BY MOUTH FOUR TIMES A DAY . MUST LAST 30 DAYS 03/31/2016 04/29/2016 Inactive (Response to an electronic controlled substance refill request - RxReferenceNumber: [id number]) Klor-Con 8 mEq tablet,extended release RxNorm: 306219 T FARRUKH ONE TABLET BY MOUTH TWICE A DAY 03/24/2016 09/29/2019 Inactive prednisone 20 mg tablet RxNorm: 758679 1 Tablet(s) PO QD 03/09/2016 0 03/08/2016 Inactive prednisone 20 mg tablet RxNorm: 634584 1 Tablet(s) PO QD 03/09/2016 0 03/13/2016 Inactive alprazolam 0.5 mg tablet RxNorm: 617212 3 Tablet(s) PO QHS as needed for sleep/stress 03/02/2016 01/21/2019 Inactive mupirocin 2 % topical ointment RxNorm: 547504 TOP twice daily to affected areas of face and neck 02/21/2016 04/25/2016 Inactive clonidine HCl 0.1 mg tablet RxNorm: 636662 TAKE ONE TAB LET BY MOUTH FOUR TIMES A DAY 02/15/2016 09/29/2019 Inactive clonidine HCl 0.1 mg tablet RxNorm: 314924 1 Tablet(s) PO QID 02/1404/25/2016 Inactive Premarin 1.25 mg tablet RxNorm: 963653 1-2 Tablet(s) PO QD 02/15/20 16 03/15/2016 Inactive Klor-Con 8 mEq tablet,extended release RxNorm: 878305 T FARRUKH ONE TABLET BY MOUTH TWICE A DAY 02/15/2016 03/15/2016 Inactive potassium chloride ER 20 mEq tablet,extended release(part/cr yst) RxNorm: 304784 2 Tablet(s) PO BID 02/15/2016 03/15/2016 Inactive Macrobid 100 mg capsule RxNorm: 144868 1 Capsule(s) PO BID 01/24/20 16 01/30/2016 Inactive prednisone 20 mg tablet RxNorm: 575470 Take 3tabs PO QD x 2 days, then 2 tabs PO QD x 2 days, then 1 tab PO QD x 2 days, then 1/2 tab PO QDy x 2 days 12/23/2015 04/25/2016 Inactive Klor-Con 8 mEq tablet,extended release RxNorm: 699020 T FARRUKH ONE TABLET BY MOUTH TWICE A DAY 12/20/2015 02/14/2016 Inactive alprazolam 1 mg tablet RxNorm: 491038 1 1/2 Tablet(s) PO QHS 201501/23/2016 Inactive nystatin 100,000 unit/gram topical cream RxNorm: 253801 APPLY TO AFFECTED AREA(S) TWO TIMES A DAY 11/30/2015 12/14/2015 Inactive Singulair 10 mg tablet RxNorm: 859422 TAKE ONE TABLET BY MOUTH JOSÉ Y 11/18/2015 04/25/2016 Inactive allopurinol 300 mg tablet RxNorm: 700999 1 Tablet(s) PO QD TAKE ONE TABLET BY MOUTH EVERY DAY 10/26/2015 04/22/2016 Inactive Singulair 10 mg tablet RxNorm: 190531 TAKE ONE TABLET BY MOUTH JOSÉ Y 10/26/2015 11/17/2015 Inactive duloxetine 60 mg capsule,delayed release RxNorm: 601156 1 Capsu le(s) PO QD 10/26/2015 04/22/2016 Inactive triamterene 75 mg-hydrochlorothiazide 50 mg tablet RxNorm: 3 38442 1 Tablet(s) PO QD 10/26/2015 11/14/2016 Inactive potassium chloride ER 20 mEq tablet,extended release(part/cr yst) RxNorm: 730312 2 Tablet(s) PO BID 10/26/2015 02/14/2016 Inactive Lipitor 10 mg tablet RxNorm: 677642 1 Tablet(s) PO QHS 10/26/2015 Inactive amlodipine 5 mg-benazepril 20 mg capsule RxNorm: 277224 1 Capsule(s) PO QHS replaces amlodopine 10/26/2015 04/22/2016 Inactive Bystolic 10 mg tablet RxNorm: 293828 1 Tablet(s) PO QHS 10/26/2015 Inactive amlodipine 5 mg-benazepril 20 mg capsule RxNorm: 853051 1 Capsule(s) PO QHS replaces amlodopine 10/06/2015 10/25/2015 Inactive amlodipine 5 mg tablet RxNorm: 083266 1 Tablet(s) PO QHS 09/30/2015 0 04/25/2016 Inactive metolazone 2.5 mg tablet RxNorm: 997147 TAKE ONE TABLET BY MOUTH DAILY NEEDED FOR EDEMA 09/30/2015 01/21/2019 Inactive duloxetine 60 mg capsule,delayed release RxNorm: 112593 1 Capsu le(s) PO QD 09/30/2015 10/25/2015 Inactive cephalexin 500 mg capsule RxNorm: 819817 1 Capsule(s) PO BID 201509/23/2015 Inactive mupirocin 2 % topical ointment RxNorm: 250695 TOP twice daily to affected areas of face and neck 09/14/2015 02/20/2016 Inactive baclofen 20 mg tablet RxNorm: 298973 1 Tablet(s) PO TID as needed for muscle spasm 09/01/2015 11/14/2016 Inactive clonidine HCl 0.1 mg tablet RxNorm: 363298 1 Tablet(s) PO QID 09/0102/14/2016 Inactive alprazolam 1 mg tablet RxNorm: 487591 1 1/2 Tablet(s) PO QHS 201409/09/2015 Inactive baclofen 20 mg tablet RxNorm: 510497 1 Tablet(s) PO TID as needed for muscle spasm 07/23/2015 09/01/2015 Inactive omeprazole 40 mg capsule,delayed release RxNorm: 193022 1 Capsu le(s) PO QD 07/23/2015 04/25/2016 Inactive alprazolam 1 mg tablet RxNorm: 199472 1 1/2 Tablet(s) PO QHS 201408/10/2015 Inactive Bystolic 10 mg tablet RxNorm: 675161 1 Tablet(s) PO BID 06/24/2015 Inactive allopurinol 300 mg tablet RxNorm: 711255 1 Tablet(s) PO QD TAKE ONE TABLET BY MOUTH EVERY DAY 06/23/2015 10/20/2015 Inactive alprazolam 1 mg tablet RxNorm: 791118 1 1/2 Tablet(s) PO QHS 201407/06/2015 Inactive clonidine HCl 0.1 mg tablet RxNorm: 465877 1 Tablet(s) PO QID 06/0209/01/2015 Inactive clonidine HCl 0.1 mg tablet RxNorm: 168143 1 Tablet(s) PO QID 06/0206/01/2015 Inactive Cymbalta 60 mg capsule,delayed release RxNorm: 934999 1 Capsule (s) PO QHS 06/02/2015 08/30/2015 Inactive Cymbalta 60 mg capsule,delayed release RxNorm: 682027 1 Capsule (s) PO QHS 06/02/2015 06/01/2015 Inactive clonidine HCl 0.1 mg tablet RxNorm: 131300 1 Tablet(s) PO TID 05/3106/01/2015 Inactive replaces 0.2mg dose metolazone 2.5 mg tablet RxNorm: 878246 TAKE ONE TABLET BY MOUTH DAILY NEEDED FOR EDEMA 05/21/2015 06/19/2015 Inactive Singulair 10 mg tablet RxNorm: 264495 TAKE ONE TABLET BY MOUTH JOSÉ Y 05/21/2015 10/17/2015 Inactive Cymbalta 30 mg capsule,delayed release RxNorm: 675847 1 Capsule (s) PO QHS 05/20/2015 11/14/2016 Inactive betamethasone valerate 0.1 % topical cream RxNorm: 040233 Appli cation TOP BID 05/10/2015 04/25/2016 Inactive Bactroban 2 % topical ointment RxNorm: 703225 Application TOP BID 0 05/10/2015 06/20/2015 Inactive baclofen 20 mg tablet RxNorm: 385412 1 Tablet(s) PO TID as needed 0 04/26/2015 07/23/2015 Inactive Lipitor 10 mg tablet RxNorm: 575317 1 Tablet(s) PO QHS 04/26/201508/2016 Inactive clonidine HCl 0.1 mg tablet RxNorm: 658769 1 Tablet(s) PO TID 04/2605/30/2015 Inactive replaces 0.2mg dose Klor-Con 8 mEq tablet,extended release RxNorm: 615074 1 Tablet( s) PO BID 04/26/2015 04/25/2016 Inactive metolazone 2.5 mg tablet RxNorm: 048804 1 Tablet(s) PO QD as ne eded for edema 04/26/2015 04/25/2015 Inactive triamterene 75 mg-hydrochlorothiazide 50 mg tablet RxNorm: 3 66783 1 Tablet(s) PO QD 04/26/2015 10/22/2015 Inactive Premarin 1.25 mg tablet RxNorm: 853552 1-2 Tablet(s) PO QD 04/26/20 15 10/22/2015 Inactive Bystolic 10 mg tablet RxNorm: 068786 1 Tablet(s) PO QAM TAKE ONE TABLET BY MOUTH EVERY MORNING 04/23/2015 06/23/2015 Inactive clonidine HCl 0.1 mg tablet RxNorm: 346901 1 Tablet(s) PO TID 03/2304/25/2015 Inactive replaces 0.2mg dose nystatin 100,000 unit/gram topical cream RxNorm: 988503 Applica tion TOP BID 03/23/2015 06/20/2015 Inactive baclofen 20 mg tablet RxNorm: 145322 1 Tablet(s) PO TID as needed 0 03/23/2015 04/25/2015 Inactive Premarin 1.25 mg tablet RxNorm: 425611 1-2 Tablet(s) PO QD 03/23/20 15 04/25/2015 Inactive Klor-Con 8 mEq tablet,extended release RxNorm: 978306 1 Tablet( s) PO BID 03/23/2015 04/25/2015 Inactive cefdinir 300 mg capsule RxNorm: 685371 2 Capsule(s) PO QD 03/16/2015 03/25/2015 Inactive baclofen 20 mg tablet RxNorm: 958129 1 Tablet(s) PO TID as needed 0 03/02/2015 03/22/2015 Inactive allopurinol 300 mg tablet RxNorm: 956957 1 Tablet(s) PO QD TAKE ONE TABLET BY MOUTH EVERY DAY 02/22/2015 05/22/2015 Inactive Klor-Con M20 mEq tablet,extended release RxNorm: 251645 2 Tablet(s) PO BID to use with lasix 02/22/2015 06/20/2015 Inactive clonidine HCl 0.1 mg tablet RxNorm: 461181 1 Tablet(s) PO TID 02/1903/22/2015 Inactive replaces 0.2mg dose Lipitor 10 mg tablet RxNorm: 576302 1 Tablet(s) PO QHS 01/20/201506/2015 Inactive Lipitor 10 mg tablet RxNorm: 629910 1 Tablet(s) PO QHS 01/20/2015 Inactive Singulair 10 mg tablet RxNorm: 425186 1 Tablet(s) PO QD TAKE ONE TABLET BY MOUTH EVERY DAY 11/20/2014 05/18/2015 Inactive Lipitor 10 mg tablet RxNorm: 610799 1 Tablet(s) PO QHS 11/20/201408/2015 Inactive allopurinol 300 mg tablet RxNorm: 095199 1 Tablet(s) PO QD TAKE ONE TABLET BY MOUTH EVERY DAY 11/20/2014 02/16/2015 Inactive Bystolic 10 mg tablet RxNorm: 153318 1 Tablet(s) PO QAM TAKE ONE TABLET BY MOUTH EVERY MORNING 11/20/2014 04/22/2015 Inactive Klor-Con 8 mEq tablet,extended release RxNorm: 700093 1 Tablet( s) PO BID 11/20/2014 02/17/2015 Inactive baclofen 20 mg tablet RxNorm: 428677 1 Tablet(s) PO TID as needed 0 11/20/2014 01/21/2019 Inactive baclofen 20 mg tablet RxNorm: 281293 1 Tablet(s) PO TID as needed 0 10/27/2014 11/19/2014 Inactive baclofen 20 mg tablet RxNorm: 264496 1 Tablet(s) PO TID as needed 0 10/26/2014 03/01/2015 Inactive allopurinol 300 mg tablet RxNorm: 271934 1 Tablet(s) PO QD TAKE ONE TABLET BY MOUTH EVERY DAY 10/26/2014 11/20/2014 Inactive Bystolic 10 mg tablet RxNorm: 336127 1 Tablet(s) PO QAM TAKE ONE TABLET BY MOUTH EVERY MORNING 10/26/2014 11/20/2014 Inactive clonidine HCl 0.1 mg tablet RxNorm: 621287 1 Tablet(s) PO TID 09/2805/27/2019 Inactive replaces 0.2mg dose clonidine HCl 0.1 mg tablet RxNorm: 808107 1 Tablet(s) PO TID 09/2802/18/2015 Inactive replaces 0.2mg dose baclofen 20 mg tablet RxNorm: 022124 1 Tablet(s) PO TID as needed 1 11/01/2013 08/30/2014 Inactive Lipitor 10 mg tablet RxNorm: 833423 1 Tablet(s) PO QHS 08/31/2014 Inactive baclofen 20 mg tablet RxNorm: 302173 1 Tablet(s) PO TID as needed 1 11/01/2013 10/26/2014 Inactive triamterene 75 mg-hydrochlorothiazide 50 mg tablet RxNorm: 3 62469 1 Tablet(s) PO QD 08/31/2014 02/26/2015 Inactive Klor-Con 8 mEq tablet,extended release RxNorm: 503784 1 Tablet( s) PO BID 08/31/2014 11/20/2014 Inactive baclofen 20 mg tablet RxNorm: 467163 1 Tablet(s) PO TID as needed 1 09/30/2013 10/25/2014 Inactive baclofen 20 mg tablet RxNorm: 365491 1 Tablet(s) PO TID as needed 1 09/30/2013 08/31/2014 Inactive omeprazole 40 mg capsule,delayed release RxNorm: 682115 1 Capsu le(s) PO QD 07/21/2014 07/23/2015 Inactive Flonase 50 mcg/actuation nasal spray,suspension RxNorm: 8963 23 1 [place] NASAL BID 07/15/2014 04/09/2017 Inactive hydrocodone 10 mg-acetaminophen 325 mg tablet RxNorm: 350008 1-2 Tablet(s) QID as needed for pain TAKE ONE TO TWO TABLETS BY MOUTH FOUR TIMES A DAY . MUST LAST 30 DAYS 06/30/2014 07/27/2014 Inactive (Response to an electronic controlled substance refill request - RxReferenceNumber: [id number]) baclofen 20 mg tablet RxNorm: 977628 1 Tablet(s) PO TID as needed 1 07/31/2014 Inactive Singulair 10 mg tablet RxNorm: 205382 1 Tablet(s) PO QD TAKE ONE TABLET BY MOUTH EVERY DAY 05/25/2014 11/20/2014 Inactive Bystolic 10 mg tablet RxNorm: 198828 TAKE ONE TABLET BY MOUTH E VERY MORNING 05/25/2014 09/21/2014 Inactive allopurinol 300 mg tablet RxNorm: 377296 1 Tablet(s) PO QD TAKE ONE TABLET BY MOUTH EVERY DAY 05/25/2014 10/21/2014 Inactive baclofen 20 mg tablet RxNorm: 809473 1 Tablet(s) PO TID as needed 0 05/25/2014 06/29/2014 Inactive allopurinol 300 mg tablet RxNorm: 052303 TAKE ONE TABLET BY LOPEZ TH EVERY DAY 05/25/2014 09/21/2014 Inactive Singulair 10 mg tablet RxNorm: 813035 1 Tablet(s) PO QD TAKE ONE TABLET BY MOUTH EVERY DAY 05/25/2014 05/24/2014 Inactive Bystolic 10 mg tablet RxNorm: 968715 1 Tablet(s) PO QAM TAKE ONE TABLET BY MOUTH EVERY MORNING 05/25/2014 10/21/2014 Inactive metolazone 2.5 mg tablet RxNorm: 354063 1 Tablet(s) PO QD as ne eded for edema 05/18/2014 04/25/2015 Inactive Lasix 40 mg tablet RxNorm: 194083 1 Tablet(s) PO RAZA ramirez take potassium supplementation with this medication 05/14/2014 05/17/2014 Inactive hydrocodone 10 mg-acetaminophen 325 mg tablet RxNorm: 206327 1-2 Tablet(s) QID as needed for pain TAKE ONE TO TWO TABLETS BY MOUTH FOUR TIMES A DAY . MUST LAST 30 DAYS 05/07/2014 06/05/2014 Inactive (Response to an electronic controlled substance refill request - RxReferenceNumber: [id number]) alprazolam 0.5 mg tablet RxNorm: 412444 TAKE ONE TABLET BY MOUTH TWICE A DAY , MUST LAST 30 DAYS 05/07/2014 05/22/2016 Inactive (Response to a n electronic controlled substance refill request - RxReferenceNumber: [id number]) diclofenac sodium 75 mg tablet,delayed release RxNorm: 39152 6 1 Tablet(s) PO BID for pain 04/24/2014 07/20/2014 Inactive Celebrex 200 mg capsule RxNorm: 539012 TAKE ONE CAPSULE BY MOUT H EVERY DAY 04/24/2014 07/20/2014 Inactive alprazolam 0.5 mg tablet RxNorm: 909434 TAKE ONE TABLET BY MOUTH TWICE A DAY , MUST LAST 30 DAYS 03/24/2014 04/22/2014 Inactive (Response to a n electronic controlled substance refill request - RxReferenceNumber: [id number]) diclofenac sodium 75 mg tablet,delayed release RxNorm: 10143 6 1 Tablet(s) PO BID for pain 03/24/2014 04/24/2014 Inactive clonidine HCl 0.1 mg tablet RxNorm: 711246 1 Tablet(s) PO TID 03/2409/28/2014 Inactive replaces 0.2mg dose Klor-Con 8 mEq tablet,extended release RxNorm: 728699 1 Tablet( s) PO BID 02/26/2014 08/31/2014 Inactive diclofenac sodium 75 mg tablet,delayed release RxNorm: 24470 6 1 Tablet(s) PO BID for pain 02/25/2014 03/24/2014 Inactive hydrocodone 10 mg-acetaminophen 325 mg tablet RxNorm: 413505 1-2 Tablet(s) QID as needed for pain TAKE ONE TO TWO TABLETS BY MOUTH FOUR TIMES A DAY . MUST LAST 30 DAYS 02/25/2014 03/26/2014 Inactive (Response to an electronic controlled substance refill request - RxReferenceNumber: [id number]) alprazolam 0.5 mg tablet RxNorm: 790689 Tablet(s) PO BI D as needed for anxiety TAKE ONE TABLET BY MOUTH TWICE A DAY , MUST LAST 30 DAYS 02/25/2014 Inactive (Response to an electronic controlled [place] bstance refill request - RxReferenceNumber: [id number]) [AttnRPh: Saving apply/adjudicate RxGRP:SG20 RxBIN:[id number] RxPCN: ID#:[id number]] alprazolam 0.5 mg tablet RxNorm: 278759 Tablet(s) TAKE ONE TABLET BY MOUTH TWICE A DAY , MUST LAST 30 DAYS 01/27/2014 02/24/2014 Inactive (Respo nse to an electronic controlled substance refill request - RxReferenceNumber: [id number]) [AttnRPh: Saving apply/adjudicate RxGRP:[id number] RxBIN:[id number] RxPCN: ID#:[id number]] hydrocodone 10 mg-acetaminophen 325 mg tablet RxNorm: 765009 1-2 Tablet(s) QID as needed for pain TAKE ONE TO TWO TABLETS BY MOUTH FOUR TIMES A DAY . MUST LAST 30 DAYS 01/27/2014 02/24/2014 Inactive (Response to an electronic controlled substance refill request - RxReferenceNumber: [id number]) alprazolam 0.5 mg tablet RxNorm: 224765 TAKE ONE TABLET BY MOUTH TWICE A DAY , MUST LAST 30 DAYS 01/27/2014 01/26/2014 Inactive (Response to a n electronic controlled substance refill request - RxReferenceNumber: [id number]) Premarin 1.25 mg tablet RxNorm: 796215 1-2 Tablet(s) PO QD 01/28/20 14 07/25/2014 Inactive alprazolam 0.5 mg tablet RxNorm: 365622 TAKE ONE TABLET BY MOUTH TWICE A DAY , MUST LAST 30 DAYS 01/27/2014 01/27/2014 Inactive (Response to a n electronic controlled substance refill request - RxReferenceNumber: [id number]) hydrocodone 10 mg-acetaminophen 325 mg tablet RxNorm: 230884 TAKE ONE TO TWO TABLETS BY MOUTH FOUR TIMES A DAY . MUST LAST 30 DAYS 01/27/20142013 Inactive (Response to an electronic controlled [place] bstance refill request - RxReferenceNumber: [id number]) Celebrex 200 mg capsule RxNorm: 329037 1 Capsule(s) PO QD TAKE ONE CAPSULE BY MOUTH EVERY DAY 12/29/2013 04/27/2014 Inactive hydrocodone 10 mg-acetaminophen 325 mg tablet RxNorm: 352063 1-2 Tablet(s) PO QID as needed for severe pain 12/29/2013 01/27/2014 Inactive allopurinol 300 mg tablet RxNorm: 001536 1 Tablet(s) PO QD TAKE ONE TABLET BY MOUTH EVERY DAY 12/29/2013 05/24/2014 Inactive alprazolam 0.5 mg tablet RxNorm: 984909 TAKE ONE TABLET BY MOUTH TWICE A DAY , MUST LAST 30 DAYS 12/29/2013 01/27/2014 Inactive (Response to a n electronic controlled substance refill request - RxReferenceNumber: [id number]) Celebrex 200 mg capsule RxNorm: 443760 1 Capsule(s) PO QD TAKE ONE CAPSULE BY MOUTH EVERY DAY 12/29/2013 12/29/2013 Inactive Bystolic 10 mg tablet RxNorm: 059593 1 Tablet(s) PO QAM TAKE ONE TABLET BY MOUTH EVERY MORNING 12/29/2013 05/24/2014 Inactive Bystolic 10 mg tablet RxNorm: 345011 1 Tablet(s) PO QAM TAKE ONE TABLET BY MOUTH EVERY MORNING 12/29/2013 12/29/2013 Inactive Singulair 10 mg tablet RxNorm: 139062 1 Tablet(s) PO QD TAKE ONE TABLET BY MOUTH EVERY DAY 12/29/2013 05/25/2014 Inactive hydrocodone 10 mg-acetaminophen 325 mg tablet RxNorm: 771627 TAKE ONE TO TWO TABLETS BY MOUTH FOUR TIMES A DAY . MUST LAST 30 DAYS 12/29/20132013 Inactive (Response to an electronic controlled [place] bstance refill request - RxReferenceNumber: [id number]) Trazadone 75mg Tablet RxNorm: 1 Tablet(s) PO QHS as needed 03/23/2014 Inactive Trazadone 75mg Tablet RxNorm: 1 Tablet(s) PO QHS 12/24/20132014 Inactive Soma 350 mg tablet RxNorm: 410298 Tablet(s) PO TAKE ON E TABLET BY MOUTH THREE TIMES A DAY NEEDED FOR MUSCLE SPASMS. THIS MUST LAST 30 DAYS BETWEEN REFILLS. 12/10/2013 12/22/2013 Inactive (Appended: Cont rolled substance eRx refill - RxReferenceNumber: [id number]) diclofenac sodium 75 mg tablet,delayed release RxNorm: 68259 6 1 Tablet(s) PO BID for pain 12/10/2013 02/24/2014 Inactive allopurinol 300 mg tablet RxNorm: 005905 1 Tablet(s) PO QD 11/20/19 14 12/29/2013 Inactive alprazolam 0.5 mg tablet RxNorm: 076956 2 Tablet(s) PO BID 11/13/19 14 12/29/2013 Inactive prn clonidine 0.1 mg tablet RxNorm: 110611 1 Tablet(s) PO TID 11/12/2013 02/09/2014 Inactive replaces 0.2mg dose Klor-Con M20 mEq tablet,extended release RxNorm: 809743 2 Tablet(s) PO BID to use with lasix 11/12/2013 05/10/2014 Inactive Singulair 10 mg tablet RxNorm: 987370 1 Tablet(s) PO QD 11/12/2013 Inactive hydrocodone 10 mg-acetaminophen 325 mg tablet RxNorm: 866221 1-2 Tablet(s) PO QID as needed for severe pain 11/12/2013 12/28/2013 Inactive Bystolic 10 mg tablet RxNorm: 814957 1 Tablet(s) PO QAM 11/12/2013 Inactive Soma 350 mg tablet RxNorm: 331390 Tablet(s) PO TAKE ON E TABLET BY MOUTH THREE TIMES A DAY NEEDED FOR MUSCLE SPASMS. THIS MUST LAST 30 DAYS BETWEEN REFILLS. 10/13/2013 12/10/2013 Inactive (Appended: Cont rolled substance eRx refill - RxReferenceNumber: [id number]) hydrocodone 10 mg-acetaminophen 325 mg tablet RxNorm: 501453 1-2 Tablet(s) PO QID as needed for severe pain 10/03/2013 11/11/2013 Inactive diclofenac sodium 75 mg tablet,delayed release RxNorm: 71786 8 1 Tablet(s) PO BID for pain 09/11/2013 12/10/2013 Inactive alprazolam 0.5 mg tablet RxNorm: 027957 1 Tablet(s) PO BID May refill on 04/26/13 09/01/2013 10/30/2013 Inactive prn hydrocodone 10 mg-acetaminophen 325 mg tablet RxNorm: 156882 1-2 Tablet(s) PO QID as needed for severe pain 09/01/2013 10/02/2013 Inactive triamterene 75 mg-hydrochlorothiazide 50 mg tablet RxNorm: 3 56115 1 Tablet(s) PO QD 08/04/2013 08/31/2014 Inactive cyclobenzaprine 10 mg tablet RxNorm: 839696 1 Tablet(s) PO TID prn spasm 08/04/2013 08/13/2013 Inactive clonidine 0.1 mg tablet RxNorm: 206153 1 Tablet(s) PO TID 08/04/2013 11/11/2013 Inactive replaces 0.2mg dose cyclobenzaprine 10 mg tablet RxNorm: 785794 1 Tablet(s) PO TID prn spasm 07/23/2013 08/01/2013 Inactive hydrocodone 10 mg-acetaminophen 325 mg tablet RxNorm: 153473 2 1-2 Tablet(s) PO QID as needed for severe pain 06/09/2013 08/07/2013 Inactive Singulair 10 mg tablet RxNorm: 816864 1 Tablet(s) PO QD 05/29/2013 Inactive Klor-Con 8 mEq tablet,extended release RxNorm: 559608 1 Tablet( s) PO BID 05/29/2013 02/26/2014 Inactive allopurinol 300 mg tablet RxNorm: 560145 1 Tablet(s) PO QD 05/29/2011/19/2013 Inactive Bystolic 10 mg tablet RxNorm: 338354 1 Tablet(s) PO QAM take one daily in the morning. 05/29/2013 11/11/2013 Inactive scopolamine 1.5 mg 72 hr Transderm Patch RxNorm: 984051 Application TD Q72H for motion sickness 05/26/2013 07/22/2013 Inactive Soma 350 mg tablet RxNorm: 239456 1 Tablet(s) PO TID as needed for spasm 05/19/2013 10/13/2013 Inactive diclofenac sodium 75 mg tablet,delayed release RxNorm: 59798 8 1 Tablet(s) PO BID for pain 05/14/2013 07/22/2013 Inactive allopurinol 300 mg tablet RxNorm: 425869 1 Tablet(s) PO QD 04/25/2005/28/2013 Inactive alprazolam 0.5 mg tablet RxNorm: 517189 1 Tablet(s) PO BID May refill on 04/26/13 04/25/2013 06/23/2013 Inactive prn Celebrex 200 mg capsule RxNorm: 304410 1 Capsule(s) PO QD 04/16/2013 12/29/2013 Inactive alprazolam 0.5 mg tablet RxNorm: 308279 1 Tablet(s) PO BID May refill on 04/26/13 04/16/2013 04/24/2013 Inactive prn Soma 350 mg tablet RxNorm: 390025 1 Tablet(s) PO TID as needed for spasm 04/16/2013 No Stop Date Active Lasix 40 mg tablet RxNorm: 985904 1 Tablet(s) PO QAM s hould take potassium supplementation with this medication 04/16/2013 06/14/2013 Inactive clonidine 0.1 mg tablet RxNorm: 658476 1 Tablet(s) PO TID 04/16/2013 08/03/2013 Inactive replaces 0.2mg dose prednisone 20 mg tablet RxNorm: 662071 1 Tablet(s) PO BID 04/16/2013 04/20/2013 Inactive diclofenac sodium 75 mg tablet,delayed release RxNorm: 24177 8 1 Tablet(s) PO BID for pain 04/14/2013 05/13/2013 Inactive hydrocodone 10 mg-acetaminophen 325 mg tablet RxNorm: 815649 2 1-2 Tablet(s) PO QID as needed for severe pain 04/14/2013 No Stop Date Active Lasix 40 mg tablet RxNorm: 053322 1 Tablet(s) PO QAM s hould take potassium supplementation with this medication 03/31/2013 04/15/2013 Inactive Celebrex 200 mg capsule RxNorm: 807999 1 Capsule(s) PO QD 03/31/2013 04/15/2013 Inactive alprazolam 0.5 mg tablet RxNorm: 324024 1 Tablet(s) PO BID 03/28/20 13 04/15/2013 Inactive prn hydrocodone 10 mg-acetaminophen 325 mg tablet RxNorm: 926198 2 1-2 Tablet(s) PO QID as needed for severe pain 03/10/2013 No Stop Date Active metformin ER 500 mg 24 hr tablet,extended release RxNorm: 86 1018 1 Tablet(s) PO QD 03/06/2013 07/22/2013 Inactive clindamycin 300 mg capsule RxNorm: 760146 2 Capsule(s) PO TID 03/0503/14/2013 Inactive Zaroxolyn 2.5 mg tablet RxNorm: 646449 1 Tablet(s) PO QAM 03/05/2013 05/19/2015 Inactive amlodipine 10 mg tablet RxNorm: 716389 1 Tablet(s) PO QD 03/03/2013 0 05/25/2013 Inactive Norvasc 10 mg tablet RxNorm: 404263 1 Tablet(s) PO QD 02/28/201307/11 Inactive Celebrex 200 mg capsule RxNorm: 046636 1 Capsule(s) PO QD 02/28/2013 03/30/2013 Inactive diclofenac sodium 75 mg tablet,delayed release RxNorm: 35280 8 1 Tablet(s) PO BID for pain 02/14/2013 03/15/2013 Inactive Soma 350 mg tablet RxNorm: 671526 1 Tablet(s) PO TID as needed for spasm 02/14/2013 No Stop Date Active hydrocodone 10 mg-acetaminophen 325 mg tablet RxNorm: 180641 2 1-2 Tablet(s) PO QID as needed for severe pain 02/14/2013 No Stop Date Active Norvasc 10 mg tablet RxNorm: 972142 1 Tablet(s) PO QD 02/10/201302/09 Inactive Celebrex 200 mg capsule RxNorm: 433929 1 Capsule(s) PO QD 01/27/2013 01/26/2013 Inactive Premarin 1.25 mg tablet RxNorm: 058224 1-2 Tablet(s) PO QD 01/28/20 13 06/25/2013 Inactive alprazolam 0.5 mg tablet RxNorm: 976887 1 Tablet(s) PO BID 01/28/20 13 02/25/2013 Inactive prn amlodipine 5 mg tablet RxNorm: 615306 1 Tablet(s) PO QD 01/27/2013 Inactive Celebrex 200 mg capsule RxNorm: 797389 1 Capsule(s) PO QD 01/27/2013 02/27/2013 Inactive gabapentin 600 mg tablet RxNorm: 282002 1 Tablet(s) PO QHS 01/16/20 13 07/22/2013 Inactive Soma 350 mg tablet RxNorm: 397386 1 Tablet(s) PO TID as needed for spasm 01/15/2013 No Stop Date Active hydrocodone 10 mg-acetaminophen 325 mg tablet RxNorm: 260534 2 1-2 Tablet(s) PO QID as needed for severe pain 01/15/2013 No Stop Date Active Soma 350 mg tablet RxNorm: 355620 1 Tablet(s) PO TID as needed for spasm 01/13/2013 No Stop Date Active alprazolam 0.5 mg tablet RxNorm: 134491 1 Tablet(s) PO BID 12/31/19 13 01/26/2013 Inactive prn diclofenac sodium 75 mg tablet,delayed release RxNorm: 70795 8 1 Tablet(s) PO BID for pain 12/09/2012 01/07/2013 Inactive gabapentin 600 mg tablet RxNorm: 481060 1 Tablet(s) PO QHS 12/10/19 13 01/07/2013 Inactive hydrocodone 10 mg-acetaminophen 325 mg tablet RxNorm: 902818 2 1-2 Tablet(s) PO QID as needed for severe pain 12/02/2012 No Stop Date Active Levaquin 750 mg tablet RxNorm: 542754 1 Tablet(s) PO QD 11/21/2012 Inactive Singulair 10 mg tablet RxNorm: 063113 1 Tablet(s) PO QD 11/11/2012 Inactive clonidine 0.2 mg tablet RxNorm: 632821 1 Tablet(s) PO TID 11/11/2012 04/15/2013 Inactive alprazolam 0.5 mg tablet RxNorm: 195771 1 Tablet(s) PO BID 11/12/19 13 12/10/2012 Inactive prn Klor-Con 8 mEq tablet,extended release RxNorm: 917667 1 Tablet( s) PO BID 11/11/2012 03/04/2013 Inactive hydrocodone 10 mg-acetaminophen 325 mg tablet RxNorm: 479994 2 1-2 Tablet(s) PO QID as needed for severe pain 11/06/2012 No Stop Date Active alprazolam 0.5 mg tablet RxNorm: 345082 1 Tablet(s) PO BID 10/15/19 13 11/10/2012 Inactive prn hydrocodone-acetaminophen 10 mg-325 mg tablet RxNorm: 503924 2 1-2 Tablet(s) PO QID as needed for severe pain 10/10/2012 10/09/2012 Inactive allopurinol 300 mg tablet RxNorm: 659045 1 Tablet(s) PO QD 09/20/19 13 12/18/2012 Inactive alprazolam 0.5 mg tablet RxNorm: 116496 1 Tablet(s) PO BID 09/17/19 13 10/14/2012 Inactive prn hydrocodone-acetaminophen 10 mg-325 mg tablet RxNorm: 300426 2 1-2 Tablet(s) PO QID as needed for severe pain 08/22/2012 08/21/2012 Inactive Norvasc 10 mg tablet RxNorm: 724976 1 Tablet(s) PO QD 08/12/201201/10 Inactive Premarin 1.25 mg tablet RxNorm: 674274 1-2 Tablet(s) PO QD 07/30/20 12 12/26/2012 Inactive alprazolam 0.5 mg tablet RxNorm: 361432 1 Tablet(s) PO BID 07/29/20 12 08/27/2012 Inactive prn Klor-Con 8 mEq tablet,extended release RxNorm: 253005 1 Tablet( s) PO BID 07/29/2012 11/10/2012 Inactive hydrocodone-acetaminophen 10 mg-325 mg tablet RxNorm: 913518 2 1-2 Tablet(s) PO QID as needed for severe pain 07/29/2012 No Stop Date Active Premarin 1.25 mg tablet RxNorm: 833183 1-2 Tablet(s) PO QD 07/29/20 12 07/29/2012 Inactive clonidine 0.2 mg tablet RxNorm: 374136 1 Tablet(s) PO TID 07/29/2012 10/28/2012 Inactive ketorolac 10 mg tablet RxNorm: 383610 1 Tablet(s) PO QID prn he adache 07/18/2012 No Stop Date Active hydrocodone-acetaminophen 10 mg-325 mg tablet RxNorm: 732024 2 1-2 Tablet(s) PO QID as needed for severe pain 07/03/2012 No Stop Date Active amlodipine 5 mg tablet RxNorm: 266561 1 Tablet(s) PO QD 07/02/2012 Inactive allopurinol 300 mg tablet RxNorm: 670315 1 Tablet(s) PO QD 07/02/2009/19/2012 Inactive Celebrex 200 mg capsule RxNorm: 011741 1 Capsule(s) PO QD for j oint pain 06/26/2012 10/23/2012 Inactive diclofenac sodium 75 mg tablet,delayed release RxNorm: 01153 8 1 Tablet(s) PO BID for pain 06/19/2012 09/16/2012 Inactive hydrocodone-acetaminophen 10 mg-325 mg tablet RxNorm: 008697 2 1-2 Tablet(s) PO QID as needed for severe pain 06/10/2012 No Stop Date Active alprazolam 0.5 mg tablet RxNorm: 670682 1 Tablet(s) PO BID 06/03/20 12 07/02/2012 Inactive prn ketorolac 10 mg tablet RxNorm: 644719 1 Tablet(s) PO Q8H 05/27/2012 0 01/21/2019 Inactive as needed for headache hydrocodone-acetaminophen 10 mg-325 mg tablet RxNorm: 448303 2 1-2 Tablet(s) PO QID as needed for severe pain 05/15/2012 No Stop Date Active allopurinol 300 mg tablet RxNorm: 993826 1 Tablet(s) PO QD 05/14/20 12 06/12/2012 Inactive allopurinol 300 mg tablet RxNorm: 348830 1 Tablet(s) PO QD 05/14/20 12 05/13/2012 Inactive amlodipine 5 mg tablet RxNorm: 639142 1 Tablet(s) PO QD 05/01/2012 Inactive amlodipine 5 mg Tab RxNorm: 903781 1 Tablet(s) PO QD 05/01/201204/30 Inactive Celebrex 200 mg capsule RxNorm: 185660 1 Capsule(s) PO QD for j oint pain 05/01/2012 06/25/2012 Inactive Singulair 10 mg tablet RxNorm: 989948 1 Tablet(s) PO QD 05/01/2012 Inactive alprazolam 0.5 mg tablet RxNorm: 686373 1 Tablet(s) PO BID 05/01/2005/30/2012 Inactive prn Celebrex 200 mg Cap RxNorm: 859572 1 Capsule(s) PO QD for joint radu n 05/01/2012 04/30/2012 Inactive hydrocodone-acetaminophen 10 mg-325 mg tablet RxNorm: 809558 2 1-2 Tablet(s) PO QID as needed for severe pain 04/19/2012 No Stop Date Active Lasix 40 mg tablet RxNorm: 689062 1 Tablet(s) PO QAM s hould take potassium supplementation with this medication 04/05/2012 06/03/2012 Inactive alprazolam 0.5 mg Tab RxNorm: 483071 1 Tablet(s) PO BID 04/05/2012 Inactive prn hydrocodone-acetaminophen 10 mg-325 mg Tab RxNorm: 9121326 1-2 Tablet(s) PO QID as needed for severe pain 03/25/2012 03/24/2012 Inactive clonidine 0.2 mg Tab RxNorm: 568453 1 Tablet(s) PO TID 03/08/2012 Inactive alprazolam 0.5 mg Tab RxNorm: 262002 1 Tablet(s) PO BID 03/08/2012 Inactive prn Soma 350 mg tablet RxNorm: 376508 1 Tablet(s) PO TID for spasm 02/0903/18/2012 Inactive clonidine 0.2 mg tablet RxNorm: 567617 1 Tablet(s) PO TID 03/08/2012 07/28/2012 Inactive Celebrex 200 mg Cap RxNorm: 780730 1 Capsule(s) PO QD for joint radu n 03/01/2012 04/29/2012 Inactive amlodipine 5 mg Tab RxNorm: 220507 1 Tablet(s) PO QD 02/26/201202/24 Inactive amlodipine 5 mg Tab RxNorm: 122053 1 Tablet(s) PO QD 02/26/201204/25 Inactive Bactroban 2 % Ointment RxNorm: 426147 Application TOP QID to sores 02/23/2012 No Stop Date Active amlodipine 2.5 mg tablet RxNorm: 056277 1 Tablet(s) PO QHS 02/20/20 12 02/25/2012 Inactive doxycycline hyclate 100 mg Cap RxNorm: 6902516 1 Capsule(s) PO BID 02/20/2012 02/29/2012 Inactive hydrocodone-acetaminophen 10 mg-325 mg Tab RxNorm: 5383022 1-2 T ablet(s) PO QID 02/08/2012 No Stop Date Active alprazolam 0.5 mg Tab RxNorm: 183613 1 Tablet(s) PO BID 02/08/2012 Inactive prn Singulair 10 mg Tab RxNorm: 547517 1 Tablet(s) PO QD 02/08/201204/30 Inactive Soma 350 mg Tab RxNorm: 983021 1 Tablet(s) PO TID for spasm 012 03/07/2012 Inactive Soma 350 mg Tab RxNorm: 424424 1 Tablet(s) PO TID for spasm 012 02/05/2012 Inactive diclofenac sodium 75 mg tablet,delayed release RxNorm: 67591 8 1 Tablet(s) PO BID for pain 02/01/2012 03/18/2012 Inactive Celebrex 200 mg Cap RxNorm: 399854 1 Capsule(s) PO QD for joint radu n 01/30/2012 02/28/2012 Inactive Lasix 40 mg Tab RxNorm: 730416 1 Tablet(s) PO QAM 01/24/2012 03/18/20 12 Inactive potassium chloride ER 20 mEq tablet,extended release(part/cr yst) RxNorm: 026366 2 Tablet(s) PO BID 01/24/2012 02/22/2012 Inactive alprazolam 0.5 mg Tab RxNorm: 416157 1 Tablet(s) PO BID 01/11/2012 Inactive prn hydrocodone-acetaminophen 10 mg-325 mg Tab RxNorm: 5203221 1-2 T ablet(s) PO QID 01/11/2012 No Stop Date Active Ambien 10 mg Tab RxNorm: 179973 1 Tablet(s) PO QHS 01/11/2012 012 Inactive Klor-Con 8 mEq Tab RxNorm: 349802 1 Tablet(s) PO BID 01/11/201201/22 Inactive diclofenac sodium 75 mg Tab, Delayed Release RxNorm: 909831 1 Tablet(s) PO BID for pain 01/10/2012 01/31/2012 Inactive Ambien 10 mg Tab RxNorm: 544590 1 Tablet(s) PO QHS 12/11/2011 012 Inactive alprazolam 0.5 mg Tab RxNorm: 661664 1 Tablet(s) PO BID 12/11/2011 Inactive prn hydrocodone 10 mg-acetaminophen 325 mg tablet RxNorm: 734751 1-2 Tablet(s) PO TID 11/28/2011 No Stop Date Active as needed for pa in - Previous quantity #240, will start dosing for #180 in April [address] Ignacio. Ambien 10 mg Tab RxNorm: 839777 1 Tablet(s) PO QHS 11/09/2011 012 Inactive alprazolam 0.5 mg Tab RxNorm: 872465 1 Tablet(s) PO BID 11/09/2011 Inactive prn hydrocodone-acetaminophen 10 mg-325 mg Tab RxNorm: 2166133 1-2 T ablet(s) PO TID 11/06/2011 No Stop Date Active as needed for pain - Previous quantity #240, will start dosing for #180 in April [address] Ignacio. Singulair 10 mg Tab RxNorm: 866166 1 Tablet(s) PO QD 10/13/201110/12 Inactive Singulair 10 mg Tab RxNorm: 206328 1 Tablet(s) PO QD 10/13/201102/06 Inactive hydrocodone-acetaminophen 10 mg-325 mg Tab RxNorm: 6006876 1-2 T ablet(s) PO TID 10/10/2011 10/09/2011 Inactive as needed for pain - Previous quantity #240, will start dosing for #180 in April [address] Ignacio. hydrocodone-acetaminophen 10 mg-325 mg Tab RxNorm: 7986894 1-2 T ablet(s) PO TID 10/09/2011 No Stop Date Active as needed for pain - Previous quantity #240, will start dosing for #180 in April [address] Ignacio. Klor-Con 8 mEq Tab RxNorm: 892384 1 Tablet(s) PO BID 10/02/201101/09 Inactive triamterene 75 mg-hydrochlorothiazide 50 mg tablet RxNorm: 3 08637 1 Tablet(s) PO QD 09/14/2011 03/06/2013 Inactive Ambien 10 mg Tab RxNorm: 744521 1 Tablet(s) PO QHS 09/14/2011 012 Inactive hydrocodone-acetaminophen 10 mg-325 mg Tab RxNorm: 2212614 1-2 T ablet(s) PO TID 09/14/2011 No Stop Date Active as needed for pain - Previous quantity #240, will start dosing for #180 in April [address] Ignacio. alprazolam 0.5 mg Tab RxNorm: 759732 1 Tablet(s) PO BID 09/14/2011 Inactive prn Zithromax 500 mg Tab RxNorm: 850352 1 Tablet(s) PO QD 09/13/201109/10 Inactive prednisone 20 mg Tab RxNorm: 674516 1 Tablet(s) PO BID 08/31/2011 Inactive Ambien 10 mg Tab RxNorm: 537127 1 Tablet(s) PO QHS 08/17/2011 011 Inactive hydrocodone-acetaminophen 10 mg-325 mg Tab RxNorm: 4854067 1-2 T ablet(s) PO TID 08/17/2011 No Stop Date Active as needed for pain - Previous quantity #240, will start dosing for #180 in April [address] Ignacio. clonidine 0.2 mg Tab RxNorm: 095342 1 Tablet(s) PO TID 08/17/201112/2011 Inactive Ambien 10 mg Tab RxNorm: 208698 1 Tablet(s) PO QHS 08/17/2011 019 Inactive alprazolam 0.5 mg Tab RxNorm: 444270 1 Tablet(s) PO BID 08/17/2011 Inactive prn hydrocodone-acetaminophen 10 mg-325 mg Tab RxNorm: 9873476 1-2 T ablet(s) PO TID 08/17/2011 08/16/2011 Inactive as needed for pain - Previous quantity #240, will start dosing for #180 in April [address] Ignacio. Singulair 10 mg Tab RxNorm: 846333 1 Tablet(s) PO QD 08/17/201108/16 Inactive Klor-Con 8 mEq Tab RxNorm: 895438 1 Tablet(s) PO QD 08/17/20112011 Inactive alprazolam 0.5 mg Tab RxNorm: 407818 1 Tablet(s) PO BID 07/20/2011 Inactive prn Ambien 10 mg Tab RxNorm: 280632 1 Tablet(s) PO QHS 07/20/2011 012 Inactive Singulair 10 mg Tab RxNorm: 884317 1 Tablet(s) PO QD 07/20/201107/19 Inactive Premarin 1.25 mg tablet RxNorm: 606014 2 Tablet(s) PO QD 07/20/2011 0 01/21/2019 Inactive Premarin 1.25 mg tablet RxNorm: 803117 1-2 Tablet(s) PO QD 07/20/20 11 12/16/2011 Inactive Premarin 1.25 mg Tab RxNorm: 632234 1-2 Tablet(s) PO QD 07/06/2011 Inactive alprazolam 0.5 mg Tab RxNorm: 032177 1 Tablet(s) PO BID 06/22/2011 Inactive prn alprazolam 0.5 mg Tab RxNorm: 466475 1 Tablet(s) PO BID 06/22/2011 Inactive prn Premarin 1.25 mg Tab RxNorm: 278512 1 Tablet(s) PO QD m ay do 90 day fill if desired 06/22/2011 07/05/2011 Inactive hydrocodone-acetaminophen 10 mg-325 mg Tab RxNorm: 0026912 1-2 T ablet(s) PO TID 06/22/2011 No Stop Date Active as needed for pain - Previous quantity #240, will start dosing for #180 in April [address] Ignacio. clonidine 0.2 mg Tab RxNorm: 234640 1 Tablet(s) PO TID 05/25/201103/2011 Inactive triamterene-hydrochlorothiazide 75 mg-50 mg Tab RxNorm: 3108 18 1 Tablet(s) PO QD 05/25/2011 09/13/2011 Inactive alprazolam 0.5 mg Tab RxNorm: 617500 1 Tablet(s) PO BID 05/25/2011 Inactive prn hydrocodone-acetaminophen 10 mg-325 mg Tab RxNorm: 9783009 1-2 T ablet(s) PO TID 05/25/2011 No Stop Date Active as needed for pain - Previous quantity #240, will start dosing for #180 in April [address] Ignacio. Robaxin-750 750 mg Tab RxNorm: 170072 2 Tablet(s) PO QHS 05/22/2011 1 Inactive prn spasm hydrocodone-acetaminophen 10 mg-325 mg Tab RxNorm: 3765777 1-2 T ablet(s) PO TID 04/26/2011 No Stop Date Active as needed for pain - Previous quantity #240, will start dosing for #180 in April [address] Ignacio. alprazolam 0.5 mg Tab RxNorm: 709201 1 Tablet(s) PO BID 04/25/2011 Inactive prn Klor-Con 8 mEq Tab RxNorm: 651165 1 Tablet(s) PO QD 03/30/20112010 Inactive Klor-Con 8 mEq Tab RxNorm: 577868 1 Tablet(s) PO QD 03/29/20112010 Inactive hydrocodone-acetaminophen 10 mg-325 mg Tab RxNorm: 1205932 1-2 T ablet(s) PO TID 03/20/2011 04/25/2011 Inactive as needed for pain - Previous quantity #240, will start dosing for #180 in April [address] Ignacio. alprazolam 0.5 mg Tab RxNorm: 586011 1 Tablet(s) PO BID prn 011 03/30/2011 Inactive Ambien 10 mg Tab RxNorm: 164721 1 Tablet(s) PO QHS 03/01/2011 011 Inactive cyclobenzaprine 10 mg Tab RxNorm: 166695 1 Tablet(s) PO TID 011 03/18/2012 Inactive cyclobenzaprine 10 mg Tab RxNorm: 844667 1 Tablet(s) PO TID 011 01/08/2011 Inactive cyclobenzaprine 10 mg Tab RxNorm: 054140 1 Tablet(s) PO TID 011 12/20/2010 Inactive terbinafine 250 mg Tab RxNorm: 296678 1 Tablet(s) PO QD 12/12/2010 Inactive triamterene-hydrochlorothiazide 75 mg-50 mg Tab RxNorm: 3108 18 1 Tablet(s) PO QD 12/07/2010 01/12/2020 Inactive Klor-Con 8 8 mEq Tab RxNorm: 576790 1 Tablet(s) PO QD 12/07/201001/08 Inactive Premarin 1.25 mg Tab RxNorm: 391942 2 Tablet(s) PO QD 12/07/201001/08 Inactive clonidine 0.2 mg Tab RxNorm: 220995 1 Tablet(s) PO TID 12/07/2010 Inactive hydrocodone-acetaminophen 7.5 mg-650 mg Tab RxNorm: 578006 1 Ta blet(s) PO Q4H 12/05/2010 01/21/2019 Inactive hydrocodone-acetaminophen 7.5 mg-650 mg Tab RxNorm: 084260 1 Ta blet(s) PO Q4H 10/26/2010 11/14/2010 Inactive hydrocodone-acetaminophen 7.5 mg-650 mg Tab RxNorm: 185931 1 Ta blet(s) PO Q4H 10/13/2010 10/25/2010 Inactive hydrocodone-acetaminophen 7.5 mg-650 mg Tab RxNorm: 429513 1 Ta blet(s) PO Q4H 09/15/2010 09/12/2010 Inactive alprazolam 0.5 mg Tab RxNorm: 375934 1 Tablet(s) PO BID prn 011 09/12/2010 Inactive terbinafine 250 mg Tab RxNorm: 590635 1 Tablet(s) PO QD 09/05/2010 Inactive hydrocodone-acetaminophen 7.5 mg-650 mg Tab RxNorm: 088993 1 Ta blet(s) PO Q4H 08/29/2010 09/17/2010 Inactive alprazolam 0.5 mg Tab RxNorm: 422206 1 Tablet(s) PO BID prn 010 09/27/2010 Inactive alprazolam 0.5 mg Tab RxNorm: 697682 1 Tablet(s) PO BID prn 010 09/06/2010 Inactive Klor-Con 8 mEq Tab RxNorm: 993592 1 Tablet(s) PO QD 08/08/20102010 Inactive hydrocodone-acetaminophen 7.5 mg-650 mg Tab RxNorm: 042405 1 Ta blet(s) PO Q4H 08/08/2010 08/27/2010 Inactive Ambien 10 mg Tab RxNorm: 840847 1 Tablet(s) PO QHS 08/08/2010 Inactive clonidine 0.2 mg Tab RxNorm: 666114 1 Tablet(s) PO TID 08/08/2010 Inactive Premarin 1.25 mg Tab RxNorm: 593883 2 Tablet(s) PO QD 08/08/201009/12 Inactive Ambien 10 mg Tab RxNorm: 227667 1 Tablet(s) PO QHS 07/18/2010 Inactive alprazolam 0.5 mg Tab RxNorm: 027217 1 Tablet(s) PO BID prn 010 08/07/2010 Inactive hydrocodone-acetaminophen 7.5 mg-650 mg Tab RxNorm: 577707 1 Ta blet(s) PO Q4H 07/12/2010 07/31/2010 Inactive clonidine 0.2 mg Tab RxNorm: 016622 1 Tablet(s) PO TID 06/20/2010 Inactive terbinafine 250 mg Tab RxNorm: 350549 1 Tablet(s) PO QD 05/24/2010 Inactive Clonidine 0.2 mg Tab RxNorm: 898205 1 Tablet(s) PO TID 05/24/201006/2010 Inactive Ambien 10 mg Tab RxNorm: 856351 1 Tablet(s) PO QHS 05/24/2010 010 Inactive alprazolam 0.5 mg Tab RxNorm: 654949 1 Tablet(s) PO BID 05/24/2010 Inactive Klor-Con 8 mEq Tab RxNorm: 247723 1 Tablet(s) PO QD 05/24/20102009 Inactive alprazolam 0.5 mg Tab RxNorm: 117546 2 Tablet(s) PO QD prn 05/24/20 10 07/17/2010 Inactive triamterene-hydrochlorothiazide 75 mg-50 mg Tab RxNorm: 3108 18 1 Tablet(s) PO QD 05/24/2010 11/19/2010 Inactive Ambien 10 mg Tab RxNorm: 422488 1 Tablet(s) PO QHS 05/23/2010 010 Inactive Alprazolam 0.5 mg Tab RxNorm: 728739 2 Tablet(s) PO QD prn 05/23/2005/23/2010 Inactive Premarin 1.25 mg Tab RxNorm: 032796 2 Tablet(s) PO QD 05/19/201007/12 Inactive Hydrocodone-Acetaminophen 7.5 mg-650 mg Tab RxNorm: 871689 1 Ta blet(s) PO Q4H 05/19/2010 03/20/2011 Inactive Prednisone 20 mg Tab RxNorm: 949011 1 Tablet(s) PO BID 05/17/2010 Inactive Prednisone 20 mg Tab RxNorm: 194794 1 Tablet(s) PO BID 05/06/201001/2010 Inactive Premarin 1.25 mg Tab RxNorm: 006912 Tablet(s) PO 2 M-W-F, and 1 Hz-Lt-Xzp-Sun 05/05/2010 08/02/2010 Inactive Premarin 1.25 mg Tab RxNorm: 342673 Tablet(s) PO 2 M-W-F, and 1 Pd-Xq-Puj-Sun 05/04/2010 05/04/2010 Inactive Premarin 1.25 mg Tab RxNorm: 210751 Tablet(s) PO 2 M-W-F, and 1 Ne-Yx-Jkb-Sun 05/04/2010 05/03/2010 Inactive Prednisone 20 mg Tab RxNorm: 446596 1 Tablet(s) PO BID 04/27/2010 Inactive Alprazolam 0.5 mg Tab RxNorm: 042778 2 Tablet(s) PO QD prn 04/26/20 10 05/22/2010 Inactive Clindamycin 300 mg Cap RxNorm: 549538 2 Capsule(s) PO TID 04/05/2010 04/18/2010 Inactive Terbinafine 250 mg Tab RxNorm: 669462 1 Tablet(s) PO QD 04/04/2010 Inactive Hydrocodone-Acetaminophen 7.5 mg-650 mg Tab RxNorm: 268314 1 Ta blet(s) PO Q4H 03/30/2010 04/18/2010 Inactive Avelox 400 mg Tab RxNorm: 690665 1 Tablet(s) PO QD 03/09/2010 010 Inactive Hydrocodone-Acetaminophen 7.5 mg-650 mg Tab RxNorm: 528729 1 Ta blet(s) PO Q4H 03/08/2010 03/27/2010 Inactive Alprazolam 0.5 mg Tab RxNorm: 474640 2 Tablet(s) PO QD prn 03/08/20 10 04/25/2010 Inactive Klor-Con 8 mEq Tab RxNorm: 437517 1 Tablet(s) PO QD when takes lasi x 03/07/2010 09/29/2019 Inactive Premarin 1.25 mg Tab RxNorm: 226786 1 Tablet(s) PO QD 03/03/201003/11 Inactive Alprazolam 0.5 mg Tab RxNorm: 635920 1 Tablet(s) PO BID PRN 010 No Stop Date Active triamterene-hydrochlorothiazide 75 mg-50 mg Tab RxNorm: 3108 18 1 Tablet(s) PO QD 02/09/2010 02/03/2011 Inactive Hydrocodone-Acetaminophen 10 mg-750 mg Tab RxNorm: 462798 1 Tablet(s) PO Q4H PRN 02/09/2010 03/20/2011 Inactive Clonidine 0.2 mg Tab RxNorm: 002152 1 Tablet(s) PO TID 01/13/201009/2009 Inactive Alprazolam 0.5 mg Tab RxNorm: 812579 1 Tablet(s) PO BID PRN 010 01/12/2010 Inactive Hydrocodone-Acetaminophen 10 mg-750 mg Tab RxNorm: 414385 1 Tablet(s) PO Q4H PRN 01/13/2010 01/12/2010 Inactive ANGELIQ 1 mg-0.5 mg Tab RxNorm: 9007116 1 Tablet(s) PO QD 12/27/2009 01/23/2010 Inactive Lasix 40 mg Tab RxNorm: 307962 1 Tablet(s) PO QAM 12/14/2009 06/11/20 10 Inactive Vitamin B12 1000mcg Tablet RxNorm: 1 Tablet(s) PO QD No Start Date Active cyclobenzaprine 10 mg tablet RxNorm: 436112 1 Tablet(s) PO TID as needed DO NOT USE WITH BACLOFEN No Start Date Active Vitamin D 5,000 unit Tab RxNorm: 1 Tablet(s) PO QD No Start Date Active vitamin E (dl, acetate) 400 unit Cap RxNorm: 460007 1 Capsule(s ) PO QD No Start Date Active Benadryl 25 mg Cap RxNorm: 5722553 Capsule(s) PO PRN No Start Date Inactive amitriptyline 100 mg tablet RxNorm: 685569 1 Tablet(s) PO QHS No St art Date 11/27/2016 Inactive Zithromax Z-Dustin 250 mg tablet RxNorm: 937924 Tablet(s) PO as di rected No Start Date 07/22/2013 Inactive Klor-Con 8 mEq tablet,extended release RxNorm: 562732 1 Tablet( s) PO BID No Start Date 07/28/2012 Inactive scopolamine 1.5 mg 72 hr Transderm Patch RxNorm: 393591 Application TD Q72H for motion sickness No Start Date 05/25/2013 Inactive Klonopin 1 mg tablet RxNorm: 664450 1-2 Tablet(s) PO QHS as nee ded for sleep No Start Date 06/20/2015 Inactive Klor-Con M20 mEq tablet,extended release RxNorm: 087879 2 Tablet(s) PO BID to use with lasix No Start Date 11/11/2013 Inactive Bystolic 5 mg tablet RxNorm: 822100 1 Tablet(s) PO QD No Start Date 1 Inactive Bystolic 10 mg tablet RxNorm: 447411 1 Tablet(s) PO BID No Start Da te 07/06/2015 Inactive Premarin 1.25 mg Tab RxNorm: 077400 Tablet(s) PO 2 -W-, and 1 Dt-Bt-Shy-Sun No Start Date 05/03/2010 Inactive baclofen 20 mg tablet RxNorm: 641760 1 Tablet(s) PO TID as needed for muscle spasm No Start Date 07/22/2015 Inactive hydrocodone-acetaminophen 7.5 mg-650 mg Tab RxNorm: 241795 1 Tablet(s) PO Q4H as needed for pain No Start Date 03/20/2011 Inactive albuterol sulfate 1.25 mg/3 mL Neb Solution RxNorm: 493148 1 Unit Dose INH Q4H 2boxes No Start Date 09/06/2015 Inactive Butrans 20 mcg/hour Transderm Patch RxNorm: 095247 1 TD WEEKLY apply to skin weekly after removing previous. No Start Date 07/22/2013 Inactive Medrol (Dustin) 4 mg tablets in a dose pack RxNorm: 016804 Tablet(s) PO As Directed No Start Date 07/30/2016 Inactive hydrocodone-acetaminophen 10 mg-325 mg Tab RxNorm: 4221490 1-2 Tablet(s) PO TID as needed for pain No Start Date 03/19/2011 Inactive Klonopin 1 mg tablet RxNorm: 585386 1 Tablet(s) PO QHS No Start Date 02/28/2016 Inactive honey topical RxNorm: topical No Start Date 06/16/2018 Inactive Clonidine 0.2 mg Tab RxNorm: 998284 1 Tablet(s) PO TID No Start Date 01/12/2010 Inactive ketorolac 10 mg tablet RxNorm: 876521 1 Tablet(s) PO Q8H No Start D ate 03/18/2012 Inactive as needed for headache Singulair 10 mg Tab RxNorm: 645337 1 Tablet(s) PO QD No Start Date Inactive Premarin 1.25 mg Tab RxNorm: 235796 1 Tablet(s) PO QD No Start Date 1 Inactive Flonase 50 mcg/Actuation Nasal [place] RxNorm: 0342895 1 [place] CECEL[place] AL BID No Start Date 03/18/2012 Inactive Terbinafine 250 mg Tab RxNorm: 870725 1 Tablet(s) PO QD No Start Da te 04/03/2010 Inactive Fexofenadine 180 mg Tab RxNorm: 3470317 1 Tablet(s) PO QD No Start Date 09/06/2015 Inactive baclofen 20 mg tablet RxNorm: 968406 1 Tablet(s) PO TID as needed N o Start Date 05/25/2014 Inactive Diovan 160 mg Tab RxNorm: 015247 1 Tablet(s) PO QD No Start Date 09/12 Inactive mupirocin 2 % topical ointment RxNorm: 538118 1 Application TOP QID No Start Date 04/25/2016 Inactive ZOFRAN ODT 4 mg Tab, Rapid Dissolve RxNorm: 326664 1 Tablet(s) PO Q4H No Start Date 03/18/2012 Inactive as needed for nausea and vomiting Alprazolam 0.5 mg Tab RxNorm: 115865 1 Tablet(s) PO BID PRN No Star t Date 01/12/2010 Inactive cyclobenzaprine 10 mg tablet RxNorm: 566207 1 Tablet(s) PO TID as needed for muscle spasm No Start Date 10/08/2017 Inactive Albuterol 0.083% Aerosol Solution RxNorm: 1 Appl ication INH Q4H Use one ampule every 4 hrs with nebulizer as needed for shortness of breath. No Start Date 10/09/2010 Inactive lorazepam 1 mg tablet RxNorm: 922206 1 1/2 Tablet(s) PO QHS No Star t Date 02/02/2016 Inactive Melatonin 3 mg Tab RxNorm: 746821 Tablet(s) PO PRN No Start Date 07/11 Inactive Medrol (Dustin) 4 mg Tabs in a Dose Pack RxNorm: 632387 Tablet(s) PO N o Start Date 11/28/2010 Inactive lorazepam 1 mg tablet RxNorm: 354125 1 Tablet(s) PO QHS as need ed for sleep No Start Date 01/30/2016 Inactive hydrocodone-acetaminophen 10 mg-325 mg Tab RxNorm: 1374732 1-2 Tablet(s) PO QID as needed for severe pain No Start Date 03/24/2012 Inactive celecoxib 200 mg capsule RxNorm: 911919 1 Capsule(s) PO BID No Star t Date 06/26/2019 Inactive amlodipine 5 mg-benazepril 20 mg capsule RxNorm: 889671 1 Capsu le(s) PO QD No Start Date 04/10/2017 Inactive Bystolic 20 mg tablet RxNorm: 056032 1/2 Tablet(s) PO QAM No Start Date 01/23/2016 Inactive Bystolic 20 mg tablet RxNorm: 766557 1 Tablet(s) PO QAM No Start Da te 04/25/2016 Inactive Ambien 10 mg Tab RxNorm: 667602 1 Tablet(s) PO QHS No Start Date 05/11 Inactive Klor-Con 8 mEq Tab RxNorm: 679741 1 Tablet(s) PO QD when takes lasix No Start Date 03/06/2010 Inactive aspirin 81 mg tablet RxNorm: 809514 1 Tablet(s) PO QD No Start Date 0 01/29/2018 Inactive hydrocodone-acetaminophen 10 mg-325 mg Tab RxNorm: 2115010 1-2 T ablet(s) PO QID No Start Date 01/10/2012 Inactive Bystolic 10 mg tablet RxNorm: 566014 1 Tablet(s) PO QAM take one daily in the morning. No Start Date 05/28/2013 Inactive nystatin 100,000 unit/mL Oral Susp RxNorm: 457402 5 Milliliter( s) PO QID No Start Date 03/18/2012 Inactive swish and spit scopolamine 1.5 mg 72 hr Transderm Patch RxNorm: 006624 1 Unit Dose TD Q72H for motion sickness No Start Date 12/23/2013 Inactive Hydrocodone-Acetaminophen 10 mg-750 mg Tab RxNorm: 997100 1 Tablet(s) PO Q4H PRN No Start Date 01/12/2010 Inactive Soma 350 mg tablet RxNorm: 039565 1 Tablet(s) PO TID as needed for spasm No Start Date 01/12/2013 Inactive baclofen 10 mg tablet RxNorm: 545192 1 Tablet(s) PO TID as needed for muscle spasm No Start Date 09/18/2019 Inactive Soma 350 mg Tab RxNorm: 275313 1 Tablet(s) PO TID for spasm No Star t Date 01/31/2012 Inactive Co Q-10 400 mg capsule RxNorm: 227999 1 Capsule(s) PO QD No Start D ate 01/21/2019 Inactive nystatin 100,000 unit/gram topical cream RxNorm: 299208 Applica tion TOP BID No Start Date 03/22/2015 Inactive Exforge 5 mg-160 mg Tab RxNorm: 616956 1 Tablet(s) PO QD No Start D ate 10/09/2010 Inactive Hydrocodone-Acetaminophen 7.5 mg-650 mg Tab RxNorm: 852240 1 Ta blet(s) PO Q4H No Start Date 03/07/2010 Inactive Robaxin-750 750 mg Tab RxNorm: 347241 1-2 Tablet(s) PO TID prn spasm No Start Date 05/21/2011 Inactive amlodipine 5 mg tablet RxNorm: 563913 1 Tablet(s) PO QHS No Start D ate 09/29/2015 Inactive oxycodone-acetaminophen 10 mg-325 mg tablet RxNorm: 9730108 1-2 Tablet(s) PO Q6H No Start Date 06/16/2018 Inactive Triamterene-Hydrochlorothiazide 75 mg-50 mg Tab RxNorm: 3108 18 1 Tablet(s) PO QD No Start Date 02/08/2010 Inactive Alprazolam 0.5 mg Tab RxNorm: 343679 2 Tablet(s) PO QD prn No Start Date 03/07/2010 Inactive Bystolic 20 mg tablet RxNorm: 430037 1 Tablet(s) PO QAM No Start Da te 08/17/2015 Inactive ketorolac 10 mg tablet RxNorm: 347333 1 Tablet(s) PO QID prn he adache No Start Date 07/17/2012 Inactive acyclovir 800 mg Tab RxNorm: 690565 1 Tablet(s) PO BID No Start Date 03/18/2012 Inactive duloxetine 60 mg capsule,delayed release RxNorm: 968334 1 Capsu le(s) PO QD No Start Date 09/29/2015 Inactive Norvasc 5 mg tablet RxNorm: 475206 1 Tablet(s) PO QHS No Start Date 1 10/18/2014 Inactive promethazine 25 mg tablet RxNorm: 267330 1 Tablet(s) PO Q8H use sparingly No Start Date 07/22/2013 Inactive alprazolam 0.5 mg tablet RxNorm: 758541 3 Tablet(s) PO QHS No Start Date 06/06/2015 Inactive Lunesta 3 mg tablet RxNorm: 260640 1 Tablet(s) PO QHS No Start Date 0 09/20/2017 Inactive hydrocodone-acetaminophen 10 mg-325 mg Tab RxNorm: 3508833 1-2 Tablet(s) PO TID as needed for pain No Start Date 12/10/2011 Inactive Coricidin HBP Cough & Cold 4 mg-30 mg Tab RxNorm: 6634601 Tablet (s) PO PRN No Start Date 10/09/2010 Inactive Bactroban 2 % Ointment RxNorm: 733274 Application TOP QID to so res No Start Date 02/22/2012 Inactive Flonase 50 mcg/actuation Nasal [place] RxNorm: 729080 2 [place] AL QHS No Start Date 03/03/2014 Inactive Medication Administered No Medication Administered data Immunizations Vaccine Codes Date Status Tetanus, Diptheria, Pertussis CVX: 115 02/27/2014 Results Observation Observation Code Item Item Code Result Date S [facility] Location MEAN GLUC 4339602 Calc Mean Gluc 209 mg/dL 02/12/2020 Unkn own GLYCOSYLATED HEMOGLOBIN TEST 05916 Hgb A1c 51042-0 8.9 % 0 02/12/2020 Unknown GFR CALC 6793767 GFR Non Afr Amr >60 mL/min 02/12/2020 Un known GFR CALC 1575170 GFR Afr Amr >60 mL/min 02/12/2020 Unknow n COMPREHENSIVE METABOLIC 79565 AST 27 U/L 2019 Unknown COMPREHENSIVE METABOLIC 20192 ALT 16 U/L 2019 Unknown COMPREHENSIVE METABOLIC 02530 BUN 22 mg/dL 2019 Unknown COMPREHENSIVE METABOLIC 54611 ALBUMIN 3.9 g/dL 2019 Unknown COMPREHENSIVE METABOLIC 71674 CHLORIDE 98 mmol/L 2019 Unknown COMPREHENSIVE METABOLIC 58431 Bili Total 0.5 mg/dL 02/11 Unknown COMPREHENSIVE METABOLIC 86517 ALK PHOS 72 U/L 2019 Unknown COMPREHENSIVE METABOLIC 92849 SODIUM 137 mmol/L 02/11 Unknown COMPREHENSIVE METABOLIC 04391 CREATININE 0.96 mg/dL 12/2019 Unknown COMPREHENSIVE METABOLIC 23117 CALCIUM 9.1 mg/dL 2019 Unknown COMPREHENSIVE METABOLIC 70819 POTASSIUM 4.6 mmol/L 02/11 Unknown COMPREHENSIVE METABOLIC 76102 Total Protein 6.5 g/dL Unknown COMPREHENSIVE METABOLIC 78471 Glucose 129 mg/dL 2019 Unknown COMPREHENSIVE METABOLIC 79342 Bicarbonate 31 mmol/L 12/2019 Unknown COMPREHENSIVE METABOLIC 66146 AGAP 8 mmol/L 2019 Unknown COMPREHENSIVE METABOLIC 17743 AST 15 U/L 2019 Unknown COMPREHENSIVE METABOLIC 31910 ALT 13 U/L 2019 Unknown COMPREHENSIVE METABOLIC 11976 BUN 12 mg/dL 2019 Unknown COMPREHENSIVE METABOLIC 14110 ALBUMIN 3.9 g/dL 2019 Unknown COMPREHENSIVE METABOLIC 51792 CHLORIDE 97 mmol/L 2019 Unknown COMPREHENSIVE METABOLIC 18492 Bili Total 0.4 mg/dL 09/29 Unknown COMPREHENSIVE METABOLIC 44880 ALK PHOS 130 U/L 2019 Unknown COMPREHENSIVE METABOLIC 38756 SODIUM 136 mmol/L 09/29 Unknown COMPREHENSIVE METABOLIC 26364 CREATININE 0.92 mg/dL 09/11 Unknown COMPREHENSIVE METABOLIC 03262 CALCIUM 9.1 mg/dL 2019 Unknown COMPREHENSIVE METABOLIC 74486 POTASSIUM 4.4 mmol/L 09/29 Unknown COMPREHENSIVE METABOLIC 98516 Total Protein 6.2 g/dL Unknown COMPREHENSIVE METABOLIC 63449 Glucose 391 mg/dL 2019 Unknown COMPREHENSIVE METABOLIC 92444 Bicarbonate 30 mmol/L 09/11 Unknown COMPREHENSIVE METABOLIC 10574 AGAP 9 mmol/L 2019 Unknown MEAN GLUC 5187501 Calc Mean Gluc 332 mg/dL 09/29/2019 Unkn own COMPLETE BLOOD COUNT [id number] WBC 7.0 10e9/L 09/29/19 Unknown COMPLETE BLOOD COUNT [id number] RBC 4.69 10e12/L 2019 Unknown COMPLETE BLOOD COUNT 6305700 HEMOGLOBIN 14.6 g/dL 09/29/19 Unknown COMPLETE BLOOD COUNT [id number] HEMATOCRIT 45.2 % 09/29/19 Unknown COMPLETE BLOOD COUNT [id number] MCV 96.4 fL 0 Unknown COMPLETE BLOOD COUNT 1181579 MCH 31.1 pg 0 Unknown COMPLETE BLOOD COUNT 2768803 MCHC 32.3 g/dL 0 Unknown COMPLETE BLOOD COUNT [id number] PLATELET COUNT 209 10e9/L Unknown COMPLETE BLOOD COUNT 6116064 Mean Plt Volume 9.8 fL Unknown COMPLETE BLOOD COUNT 4708053 Neut Auto 48.1 % 0 Unknown COMPLETE BLOOD COUNT 1550568 Lymph Auto 36.5 % 09/29/19 Unknown COMPLETE BLOOD COUNT 7019337 [place] Auto 8.6 % 0 Unknown COMPLETE BLOOD COUNT [id number] RDW 13.4 % 0 Unknown COMPLETE BLOOD COUNT 8196596 Eos Auto 6.5 % 0 Unknown COMPLETE BLOOD COUNT [id number] Baso Auto 0.3 % 0 Unknown COMPLETE BLOOD COUNT [id number] Neutrophil Abs 3.37 10e9/L Unknown COMPLETE BLOOD COUNT [id number] Lymphocyte Abs 2.56 10e9/L Unknown COMPLETE BLOOD COUNT [id number] Monocyte Abs 0.60 10e9/L 09/11 Unknown COMPLETE BLOOD COUNT [id number] Eosinophil Abs 0.46 10e9/L Unknown COMPLETE BLOOD COUNT [id number] RDW-SD 45.9 fL 0 Unknown COMPLETE BLOOD COUNT [id number] Basophil Abs 0.02 10e9/L 09/11 Unknown LIPID GROUP 56673 Cholesterol 248 mg/dL 09/29/2019 Unkno wn LIPID GROUP 19726 Triglyceride 898 mg/dL 09/29/2019 Unkn own LIPID GROUP 07439 HDL CHOLESTEROL 41 mg/dL 09/29/2019 U nknown LIPID GROUP 69507 Chol/HDL Ratio 6.05 ratio 09/29/2019 U nknown LIPID GROUP 10244 NON-HDL Chol 207 mg/dL 09/29/2019 Unkn own LIPID GROUP 63466 LDL Cholesterol N/A Trig >400 020 Unknown GLYCOSYLATED HEMOGLOBIN TEST 08815 Hgb A1c 21985-5 13.2 % 0 09/29/2019 Unknown FREE T4 88362 T4 Free 0.75 ng/dL 09/29/2019 Unknown GFR CALC 3910748 GFR Non Afr Amr >60 mL/min 09/29/2019 Un known GFR CALC 2839371 GFR Afr Amr >60 mL/min 09/29/2019 Unknow n THYROID STIMULATING HORMONE 87167 TSH 4.245 uIU/mL 09/29/2019 Unknown COMPLETE BLOOD COUNT [id number] WBC 10.7 10e9/L 018 Unknown COMPLETE BLOOD COUNT [id number] RBC 4.59 10e12/L 2017 Unknown COMPLETE BLOOD COUNT 0439325 HEMOGLOBIN 14.8 g/dL 12/11/19 18 Unknown COMPLETE BLOOD COUNT [id number] HEMATOCRIT 44.9 % 12/11/19 18 Unknown COMPLETE BLOOD COUNT 1054980 MCV 97.8 fL 8 Unknown COMPLETE BLOOD COUNT 1110518 MCH 32.2 pg 8 Unknown COMPLETE BLOOD COUNT 1802484 MCHC 33.0 g/dL 8 Unknown COMPLETE BLOOD COUNT [id number] PLATELET COUNT 261 10e9/L 10/2017 Unknown COMPLETE BLOOD COUNT 0408585 Mean Plt Volume 9.5 fL 10/2017 Unknown COMPLETE BLOOD COUNT 7663846 Neut Auto 59.9 % 8 Unknown COMPLETE BLOOD COUNT [id number] Lymph Auto 27.4 % 12/11/19 18 Unknown COMPLETE BLOOD COUNT 3967427 [place] Auto 8.2 % 8 Unknown COMPLETE BLOOD COUNT 9812738 RDW 13.3 % 8 Unknown COMPLETE BLOOD COUNT 8489878 Eos Auto 4.1 % 8 Unknown COMPLETE BLOOD COUNT 0705949 Baso Auto 0.4 % 8 Unknown COMPLETE BLOOD COUNT [id number] Neutrophil Abs 6.41 10e9/L Unknown COMPLETE BLOOD COUNT 8804337 Lymphocyte Abs 2.93 10e9/L Unknown COMPLETE BLOOD COUNT [id number] Monocyte Abs 0.88 10e9/L 10/2017 Unknown COMPLETE BLOOD COUNT 8298959 Eosinophil Abs 0.44 10e9/L Unknown COMPLETE BLOOD COUNT 5278164 RDW-SD 46.2 fL 8 Unknown COMPLETE BLOOD COUNT [id number] Basophil Abs 0.04 10e9/L 10/2017 Unknown THYROID STIMULATING HORMONE 19371 TSH 4.015 uIU/mL 12/10/2017 Unknown COMPREHENSIVE METABOLIC 11706 AST 25 U/L 2017 Unknown COMPREHENSIVE METABOLIC 98986 ALT 17 U/L 2017 Unknown COMPREHENSIVE METABOLIC 20572 BUN 19 mg/dL 2017 Unknown COMPREHENSIVE METABOLIC 97653 ALBUMIN 4.0 g/dL 2017 Unknown COMPREHENSIVE METABOLIC 81589 CHLORIDE 91 mmol/L 2017 Unknown COMPREHENSIVE METABOLIC 06578 Bili Total 0.5 mg/dL 12/10 Unknown COMPREHENSIVE METABOLIC 06910 ALK PHOS 75 U/L 2017 Unknown COMPREHENSIVE METABOLIC 34424 SODIUM 136 mmol/L 12/10 Unknown COMPREHENSIVE METABOLIC 13931 CREATININE 1.05 mg/dL 10/2017 Unknown COMPREHENSIVE METABOLIC 73160 CALCIUM 8.9 mg/dL 2017 Unknown COMPREHENSIVE METABOLIC 23290 POTASSIUM 3.4 mmol/L 12/10 Unknown COMPREHENSIVE METABOLIC 16695 Total Protein 6.5 g/dL Unknown COMPREHENSIVE METABOLIC 65786 Glucose 138 mg/dL 2017 Unknown COMPREHENSIVE METABOLIC 61334 Bicarbonate 35 mmol/L 10/2017 Unknown COMPREHENSIVE METABOLIC 42434 AGAP 10 mmol/L 2017 Unknown MEAN GLUC 6168762 Calc Mean Gluc 171 mg/dL 12/10/2017 Unkn own LIPID GROUP 30277 Cholesterol 204 mg/dL 12/10/2017 Unkno wn LIPID GROUP 56571 Triglyceride 411 mg/dL 12/10/2017 Unkn own LIPID GROUP 65633 HDL CHOLESTEROL 50 mg/dL 12/10/2017 U nknown LIPID GROUP 12470 Chol/HDL Ratio 4.08 ratio 12/10/2017 U nknown LIPID GROUP 61566 NON-HDL Chol 154 mg/dL 12/10/2017 Unkn own LIPID GROUP 40777 LDL Cholesterol N/A Trig >400 018 Unknown GLYCOSYLATED HEMOGLOBIN TEST 75338 Hgb A1c 06269-4 7.6 % 0 12/10/2017 Unknown FREE T4 73364 T4 Free 1.40 ng/dL 12/10/2017 Unknown GFR CALC 0195256 GFR Non Afr Amr 55 mL/min 12/10/2017 Unk nown GFR CALC 1890223 GFR Afr Amr >60 mL/min 12/10/2017 Unknow n GFR CALC 0321873 GFR Non Afr Amr 48 mL/min 06/28/2017 Unk nown GFR CALC 7800164 GFR Afr Amr 59 mL/min 06/28/2017 Unknown COMPREHENSIVE METABOLIC 92347 AST 32 U/L 2016 Unknown COMPREHENSIVE METABOLIC 64110 ALT 22 U/L 2016 Unknown COMPREHENSIVE METABOLIC 62242 BUN 23 mg/dL 2016 Unknown COMPREHENSIVE METABOLIC 39603 ALBUMIN 4.7 g/dL 2016 Unknown COMPREHENSIVE METABOLIC 05647 CHLORIDE 89 mmol/L 2016 Unknown COMPREHENSIVE METABOLIC 22255 Bili Total 0.5 mg/dL 06/28 Unknown COMPREHENSIVE METABOLIC 10468 ALK PHOS 90 U/L 2016 Unknown COMPREHENSIVE METABOLIC 25875 SODIUM 135 mmol/L 06/28 Unknown COMPREHENSIVE METABOLIC 85019 CREATININE 1.18 mg/dL 06/10 Unknown COMPREHENSIVE METABOLIC 31710 CALCIUM 9.7 mg/dL 2016 Unknown COMPREHENSIVE METABOLIC 81843 POTASSIUM 3.5 mmol/L 06/28 Unknown COMPREHENSIVE METABOLIC 00793 Total Protein 7.7 g/dL Unknown COMPREHENSIVE METABOLIC 13205 Glucose 129 mg/dL 2016 Unknown COMPREHENSIVE METABOLIC 08802 Bicarbonate 34 mmol/L 06/10 Unknown COMPREHENSIVE METABOLIC 46892 AGAP 12 mmol/L 2016 Unknown LIPID GROUP 15402 HDL TEST 64 MG/DL 08/27/2014 Unknown LIPID GROUP 34871 TRIG 222 MG/DL 08/27/2014 Unknown LIPID GROUP 40303 TEST LDL 209 MG/DL 08/27/2014 Unknown LIPID GROUP 09566 CHOL 317 MG/DL 08/27/2014 Unknown LIPID GROUP 01893 RCHOL/HDL 4.95 RATIO 08/27/2014 Unknow n LIPID GROUP 49608 NON-HDL CH 253 MG/DL 08/27/2014 Unknow n GFR CALC 6204761 GFR AA >60 ML/MIN 08/27/2014 Unknown GFR CALC 1644248 GFR NON-AA >60 ML/MIN 08/27/2014 Unknown COMPLETE BLOOD COUNT 1309242 WBC 7.0 10e9/L 08/27/20 14 Unknown COMPLETE BLOOD COUNT 1601427 RBC 4.98 10e12/L 2013 Unknown COMPLETE BLOOD COUNT 2993733 HGB 15.6 g/dL 4 Unknown COMPLETE BLOOD COUNT 5009406 HCT DET 46.5 % 4 Unknown COMPLETE BLOOD COUNT 1476455 MCV 93.4 fL 4 Unknown COMPLETE BLOOD COUNT 8170101 MCH 31.3 pg 4 Unknown COMPLETE BLOOD COUNT 1396298 MCHC 33.5 g/dL 4 Unknown COMPLETE BLOOD COUNT 2895880 PLT 309 10e9/L 08/27/20 14 Unknown COMPLETE BLOOD COUNT 7548506 MPV 9.6 fL 4 Unknown COMPLETE BLOOD COUNT 8988164 CADEN % 57.2 % 4 Unknown COMPLETE BLOOD COUNT 9667405 LY % 33.2 % 4 Unknown COMPLETE BLOOD COUNT 2595566 MON % 7.3 % 4 Unknown COMPLETE BLOOD COUNT 8889791 EOS % 2.0 % 4 Unknown COMPLETE BLOOD COUNT 4438783 BASO % 0.3 % 4 Unknown COMPLETE BLOOD COUNT 5458521 RDW 13.7 % 4 Unknown COMPLETE BLOOD COUNT 7589280 ABS CADEN 4.00 10e9/L 014 Unknown COMPLETE BLOOD COUNT 0264716 ABS LYMPH 2.32 10e9/L 014 Unknown COMPLETE BLOOD COUNT 8492727 ABS MONO 0.51 10e9/L 014 Unknown COMPLETE BLOOD COUNT 7764396 ABS EOS 0.14 10e9/L 014 Unknown COMPLETE BLOOD COUNT [id number] ABS BASO 0.02 10e9/L 014 Unknown COMPLETE BLOOD COUNT 5542452 RDW-SD 45.1 fL 4 Unknown COMPREHENSIVE METABOLIC 94588 AST 13 U/L 2013 Unknown COMPREHENSIVE METABOLIC 08731 ALT 11 IU/L 2013 Unknown COMPREHENSIVE METABOLIC 71784 BUN 23 MG/DL 2013 Unknown COMPREHENSIVE METABOLIC 18723 ALBUMIN 4.4 GM/DL 2013 Unknown COMPREHENSIVE METABOLIC 33743 CHLORIDE 99 MMOL/L 2013 Unknown COMPREHENSIVE METABOLIC 48968 BILI TOT 0.5 MG/DL 2013 Unknown COMPREHENSIVE METABOLIC 59219 ALK PHOS 56 U/L 2013 Unknown COMPREHENSIVE METABOLIC 65737 SODIUM 138 MMOL/L 08/27 Unknown COMPREHENSIVE METABOLIC 26983 CREATININE 0.95 MG/DL 08/10 Unknown COMPREHENSIVE METABOLIC 27302 CALCIUM 9.8 MG/DL 2013 Unknown COMPREHENSIVE METABOLIC 34074 POTASSIUM 3.5 MMOL/L 08/27 Unknown COMPREHENSIVE METABOLIC 01674 PROT TOT 6.8 GM/DL 2013 Unknown COMPREHENSIVE METABOLIC 48404 Glucose 90 MG/DL 2013 Unknown COMPREHENSIVE METABOLIC 56836 BICARB 34 MMOL/L 2013 Unknown COMPREHENSIVE METABOLIC 52145 ANION GAP 5 MEQ/L 2013 Unknown LIPASE 65881 LIPASE 11 IU/L 07/21/2014 Unknown AMYLASE 06413 AMYLASE 39 IU/L 07/21/2014 Unknown HEMOGLOBIN A1C (GLYCOSYLATED) 9803891 A1C HPLC 72457-4 6.2 % 03/05/2013 Unknown THYROID STIMULATING HORMONE 06387 TSH 6.986 uIU/ML 03/05/2013 Unknown COMPLETE BLOOD COUNT [id number] WBC 12.7 10e9/L 013 Unknown COMPLETE BLOOD COUNT 3595582 RBC 4.53 10e12/L 2012 Unknown COMPLETE BLOOD COUNT 5088130 HGB 14.7 g/dL 3 Unknown COMPLETE BLOOD COUNT 3024040 HCT DET 43.1 % 3 Unknown COMPLETE BLOOD COUNT 3083888 MCV 95.1 fL 3 Unknown COMPLETE BLOOD COUNT 5506514 MCH 32.5 pg 3 Unknown COMPLETE BLOOD COUNT 8131241 MCHC 34.1 g/dL 3 Unknown COMPLETE BLOOD COUNT 9117389 PLT 346 10e9/L 03/05/20 13 Unknown COMPLETE BLOOD COUNT 7158709 MPV 9.5 fL 3 Unknown COMPLETE BLOOD COUNT 5508745 CADEN % 67.6 % 3 Unknown COMPLETE BLOOD COUNT 2324469 LY % 22.1 % 3 Unknown COMPLETE BLOOD COUNT 0412545 MON % 6.6 % 3 Unknown COMPLETE BLOOD COUNT 6448061 EOS % 3.3 % 3 Unknown COMPLETE BLOOD COUNT [id number] BASO % 0.4 % 3 Unknown COMPLETE BLOOD COUNT 9008003 RDW 14.0 % 3 Unknown COMPLETE BLOOD COUNT 4405095 ABS CADEN 8.59 10e9/L 013 Unknown COMPLETE BLOOD COUNT 4107726 ABS LYMPH 2.81 10e9/L 013 Unknown COMPLETE BLOOD COUNT [id number] ABS MONO 0.84 10e9/L 013 Unknown COMPLETE BLOOD COUNT 7322557 ABS EOS 0.42 10e9/L 013 Unknown COMPLETE BLOOD COUNT 8755609 ABS BASO 0.05 10e9/L 013 Unknown COMPLETE BLOOD COUNT [id number] RDW-SD 46.0 fL 03/05/201 3 Unknown FREE T4 62913 FREE T4 1.14 NG/DL 03/05/2013 Unknown COMPREHENSIVE METABOLIC 64124 AST 17 U/L 2012 Unknown COMPREHENSIVE METABOLIC 39422 ALT 12 IU/L 2012 Unknown COMPREHENSIVE METABOLIC 21951 BUN 24 MG/DL 2012 Unknown COMPREHENSIVE METABOLIC 67360 ALBUMIN 4.2 GM/DL 2012 Unknown COMPREHENSIVE METABOLIC 61710 CHLORIDE 93 MMOL/L 2012 Unknown COMPREHENSIVE METABOLIC 72407 BILI TOT 0.5 MG/DL 2012 Unknown COMPREHENSIVE METABOLIC 30793 ALK PHOS 75 U/L 2012 Unknown COMPREHENSIVE METABOLIC 37610 SODIUM 141 MMOL/L 03/05 Unknown COMPREHENSIVE METABOLIC 45899 CREATININE 1.36 MG/DL 02/09 Unknown COMPREHENSIVE METABOLIC 02589 CALCIUM 9.2 MG/DL 2012 Unknown COMPREHENSIVE METABOLIC 97453 POTASSIUM 3.1 MMOL/L 03/05 Unknown COMPREHENSIVE METABOLIC 72689 PROT TOT 6.9 GM/DL 2012 Unknown COMPREHENSIVE METABOLIC 94195 Glucose 123 MG/DL 2012 Unknown COMPREHENSIVE METABOLIC 81615 BICARB 36 MMOL/L 2012 Unknown COMPREHENSIVE METABOLIC 27238 ANION GAP 12 MEQ/L 2012 Unknown GFR CALC 8600021 GFR AA 51.0L ML/MIN 03/05/2013 Unknow n GFR CALC 8039603 GFR NON-AA 42.0L ML/MIN 03/05/2013 Unkno wn COMPREHENSIVE METABOLIC 11412 AST 14 U/L 2012 Unknown COMPREHENSIVE METABOLIC 93521 ALT 11 IU/L 2012 Unknown COMPREHENSIVE METABOLIC 18002 BUN 16 MG/DL 2012 Unknown COMPREHENSIVE METABOLIC 38437 ALBUMIN 4.2 GM/DL 2012 Unknown COMPREHENSIVE METABOLIC 48335 CHLORIDE 98 MMOL/L 2012 Unknown COMPREHENSIVE METABOLIC 58579 BILI TOT 0.4 MG/DL 2012 Unknown COMPREHENSIVE METABOLIC 38418 ALK PHOS 77 U/L 2012 Unknown COMPREHENSIVE METABOLIC 65921 SODIUM 139 MMOL/L 09/25 Unknown COMPREHENSIVE METABOLIC 90873 CREATININE 0.86 MG/DL 09/10 Unknown COMPREHENSIVE METABOLIC 94802 CALCIUM 9.5 MG/DL 2012 Unknown COMPREHENSIVE METABOLIC 90955 POTASSIUM 3.8 MMOL/L 09/25 Unknown COMPREHENSIVE METABOLIC 85669 PROT TOT 6.8 GM/DL 2012 Unknown COMPREHENSIVE METABOLIC 24864 Glucose 91 MG/DL 2012 Unknown COMPREHENSIVE METABOLIC 18099 BICARB 32 MMOL/L 2012 Unknown COMPREHENSIVE METABOLIC 12050 ANION GAP 9 MEQ/L 2012 Unknown FREE T4 29608 FREE T4 0.98 NG/DL 09/25/2012 Unknown THYROID STIMULATING HORMONE 17270 TSH 1.736 uIU/ML 09/25/2012 Unknown C-REACTIVE PROTEIN (CRP) QUANT 60155 CRP 2.3 MG/DL 09/25/2012 Unknown COMPLETE BLOOD COUNT [id number] WBC 11.9 10e9/L 013 Unknown COMPLETE BLOOD COUNT [id number] RBC 4.87 10e12/L 2012 Unknown COMPLETE BLOOD COUNT [id number] HGB 15.1 g/dL 3 Unknown COMPLETE BLOOD COUNT [id number] HCT DET 44.8 % 3 Unknown COMPLETE BLOOD COUNT [id number] MCV 92.0 fL 3 Unknown COMPLETE BLOOD COUNT [id number] MCH 31.0 pg 3 Unknown COMPLETE BLOOD COUNT [id number] MCHC 33.7 g/dL 3 Unknown COMPLETE BLOOD COUNT [id number] PLT 343 10e9/L 09/25/19 13 Unknown COMPLETE BLOOD COUNT [id number] MPV 9.0 fL 3 Unknown COMPLETE BLOOD COUNT [id number] CADEN % 68.2 % 3 Unknown COMPLETE BLOOD COUNT [id number] LY % 22.4 % 3 Unknown COMPLETE BLOOD COUNT [id number] MON % 6.4 % 3 Unknown COMPLETE BLOOD COUNT 1083634 EOS % 2.7 % 3 Unknown COMPLETE BLOOD COUNT [id number] BASO % 0.3 % 3 Unknown COMPLETE BLOOD COUNT [id number] RDW 13.8 % 3 Unknown COMPLETE BLOOD COUNT [id number] ABS CADEN 8.12 10e9/L 013 Unknown COMPLETE BLOOD COUNT [id number] ABS LYMPH 2.67 10e9/L 013 Unknown COMPLETE BLOOD COUNT [id number] ABS MONO 0.76 10e9/L 013 Unknown COMPLETE BLOOD COUNT [id number] ABS EOS 0.32 10e9/L 013 Unknown COMPLETE BLOOD COUNT [id number] ABS BASO 0.04 10e9/L 013 Unknown COMPLETE BLOOD COUNT [id number] RDW-SD 45.6 fL 3 Unknown GFR CALC [id number] GFR AA >60 ML/MIN 09/25/2012 Unknown GFR CALC [id number] GFR NON-AA >60 ML/MIN 09/25/2012 Unknown ERYTHROCYTE SEDIMENTATION RATE 93318 ESR 19 MM/HR 05/06/2012 Unknown VITAMIN B 12 FOLIC ACID 29629|46273 VIT B 12 922 PG/ML 04/11 Unknown VITAMIN B 12 FOLIC ACID 42226|37847 FOLIC ACID 13.6 NG/ML Unknown URIC ACID 74131 URIC ACID 7.8 MG/DL 05/06/2012 Unknown COMPLETE BLOOD COUNT 27997 WBC 11.9 10e9/L 012 Unknown COMPLETE BLOOD COUNT 85308 RBC 5.30 10e12/L 2011 Unknown COMPLETE BLOOD COUNT 35824 HGB 16.6 g/dL 2 Unknown COMPLETE BLOOD COUNT 77463 HCT DET 47.2 % 2 Unknown COMPLETE BLOOD COUNT 53382 MCV 89.1 fL 2 Unknown COMPLETE BLOOD COUNT 54097 MCH 31.3 pg 2 Unknown COMPLETE BLOOD COUNT 10003 MCHC 35.2 g/dL 2 Unknown COMPLETE BLOOD COUNT 31908 PLT 362 10e9/L 05/06/20 12 Unknown COMPLETE BLOOD COUNT 63925 MPV 9.4 fL 2 Unknown COMPLETE BLOOD COUNT 07248 CADEN % 68.2 % 2 Unknown COMPLETE BLOOD COUNT 63703 LY % 22.0 % 2 Unknown COMPLETE BLOOD COUNT 74781 MON % 6.9 % 2 Unknown COMPLETE BLOOD COUNT 46263 EOS % 2.6 % 2 Unknown COMPLETE BLOOD COUNT 63404 BASO % 0.3 % 2 Unknown COMPLETE BLOOD COUNT 69447 RDW 12.8 % 2 Unknown COMPLETE BLOOD COUNT 38154 ABS CADEN 8.12 10e9/L 012 Unknown COMPLETE BLOOD COUNT 52005 ABS LYMPH 2.62 10e9/L 012 Unknown COMPLETE BLOOD COUNT 61991 ABS MONO 0.82 10e9/L 012 Unknown COMPLETE BLOOD COUNT 10008 ABS EOS 0.31 10e9/L 012 Unknown COMPLETE BLOOD COUNT 20030 ABS BASO 0.04 10e9/L 012 Unknown COMPLETE BLOOD COUNT 15816 RDW-SD 41.5 fL 2 Unknown GFR CALC 3519375 GFR AA >60 ML/MIN 05/06/2012 Unknown GFR CALC 7941131 GFR NON-AA 58.0L ML/MIN 05/06/2012 Unkno wn FREE T4 11902 FREE T4 1.15 NG/DL 05/06/2012 Unknown THYROID STIMULATING HORMONE 60919 TSH 1.568 uIU/ML 05/06/2012 Unknown COMPREHENSIVE METABOLIC 95971 AST 20 U/L 2011 Unknown COMPREHENSIVE METABOLIC 87461 ALT 12 IU/L 2011 Unknown COMPREHENSIVE METABOLIC 44210 BUN 20 MG/DL 2011 Unknown COMPREHENSIVE METABOLIC 52691 ALBUMIN 4.5 GM/DL 2011 Unknown COMPREHENSIVE METABOLIC 97551 CHLORIDE 91 MMOL/L 2011 Unknown COMPREHENSIVE METABOLIC 81176 BILI TOT 0.4 MG/DL 2011 Unknown COMPREHENSIVE METABOLIC 26728 ALK PHOS 73 U/L 2011 Unknown COMPREHENSIVE METABOLIC 40227 SODIUM 139 MMOL/L 05/06 Unknown COMPREHENSIVE METABOLIC 01082 CREATININE 1.02 MG/DL 04/11 Unknown COMPREHENSIVE METABOLIC 13018 CALCIUM 9.7 MG/DL 2011 Unknown COMPREHENSIVE METABOLIC 52525 POTASSIUM 3.1 MMOL/L 05/06 Unknown COMPREHENSIVE METABOLIC 92080 PROT TOT 7.3 GM/DL 2011 Unknown COMPREHENSIVE METABOLIC 82225 Glucose 118 MG/DL 2011 Unknown COMPREHENSIVE METABOLIC 94556 BICARB 33 MMOL/L 2011 Unknown COMPREHENSIVE METABOLIC 36213 ANION GAP 15 MEQ/L 2011 Unknown Procedures Procedure Codes Date COMPREHEN METABOLIC PANEL CPT-4: 58140 02/12/2020 A1C HPLC CPT-4: 55004 02/12/2020 ROUTINE VENIPUNCTURE CPT-4: 75436 09/29/2019 URINALYSIS NONAUTO W/O SCOPE CPT-4: 18278 09/29/2019 COMPREHEN METABOLIC PANEL CPT-4: 06301 09/29/2019 LIPID PANEL CPT-4: 03872 09/29/2019 A1C HPLC CPT-4: 98233 09/29/2019 ASSAY OF FREE THYROXINE CPT-4: 25544 09/29/2019 ASSAY THYROID STIM HORMONE CPT-4: 52119 09/29/2019 COMPLETE CBC W/AUTO DIFF WBC CPT-4: 46852 09/29/2019 URINALYSIS NONAUTO W/O SCOPE CPT-4: 11707 09/30/2018 MICROALBUMIN QUANTITATIVE CPT-4: 82113 09/30/2018 CEFTRIAXONE SODIUM INJECTION CPT-4: J0696 06/19/2018 THER/PROPH/DIAG INJ SC/IM CPT-4: 69446 06/19/2018 CEFTRIAXONE SODIUM INJECTION CPT-4: J0696 06/17/2018 THER/PROPH/DIAG INJ SC/IM CPT-4: 68434 06/17/2018 THER/PROPH/DIAG INJ SC/IM CPT-4: 63515 05/16/2018 KETOROLAC TROMETHAMINE INJ CPT-4: J1885 05/16/2018 ONDANSETRON HCL INJECTION CPT-4: J2405 05/16/2018 THER/PROPH/DIAG INJ SC/IM CPT-4: 45987 05/16/2018 ROUTINE VENIPUNCTURE CPT-4: 38058 03/20/2018 COMPREHEN METABOLIC PANEL CPT-4: 64646 03/20/2018 DEXAMETHASONE SODIUM PHOS CPT-4: J1100 02/11/2018 THER/PROPH/DIAG INJ SC/IM CPT-4: 15154 02/11/2018 TRIAMCINOLONE ACET INJ NOS CPT-4: J3301 02/11/2018 CEFTRIAXONE SODIUM INJECTION CPT-4: J0696 02/01/2018 THER/PROPH/DIAG INJ SC/IM CPT-4: 72964 02/01/2018 CEFTRIAXONE SODIUM INJECTION CPT-4: J0696 01/30/2018 THER/PROPH/DIAG INJ SC/IM CPT-4: 81441 01/30/2018 ROUTINE VENIPUNCTURE CPT-4: 89483 12/10/2017 ASSAY OF FREE THYROXINE CPT-4: 41011 12/10/2017 ASSAY THYROID STIM HORMONE CPT-4: 44004 12/10/2017 COMPREHEN METABOLIC PANEL CPT-4: 89800 12/10/2017 COMPLETE CBC W/AUTO DIFF WBC CPT-4: 86932 12/10/2017 LIPID PANEL CPT-4: 39309 12/10/2017 A1C HPLC CPT-4: 33332 12/10/2017 CEFTRIAXONE SODIUM INJECTION CPT-4: J0696 12/10/2017 THER/PROPH/DIAG INJ SC/IM CPT-4: 91456 12/10/2017 CEFTRIAXONE SODIUM INJECTION CPT-4: J0696 12/07/2017 THER/PROPH/DIAG INJ SC/IM CPT-4: 61140 12/07/2017 DEXAMETHASONE SODIUM PHOS CPT-4: J1100 12/07/2017 THER/PROPH/DIAG INJ SC/IM CPT-4: 21863 12/07/2017 CEFTRIAXONE SODIUM INJECTION CPT-4: J0696 10/08/2017 THER/PROPH/DIAG INJ SC/IM CPT-4: 07842 10/08/2017 CEFTRIAXONE SODIUM INJECTION CPT-4: J0696 09/21/2017 THER/PROPH/DIAG INJ SC/IM CPT-4: 68264 09/21/2017 CEFTRIAXONE SODIUM INJECTION CPT-4: J0696 09/20/2017 THER/PROPH/DIAG INJ SC/IM CPT-4: 37716 09/20/2017 REMOVAL OF NAIL PLATE CPT-4: 69225 08/29/2017 THER/PROPH/DIAG INJ SC/IM CPT-4: 39579 08/29/2017 TRIAMCINOLONE ACET INJ NOS CPT-4: J3301 08/29/2017 CEFTRIAXONE SODIUM INJECTION CPT-4: J0696 08/29/2017 THER/PROPH/DIAG INJ SC/IM CPT-4: 89045 08/29/2017 DESTRUCT PREMALG LESION (Cryosurgery) CPT-4: 83048 ROUTINE VENIPUNCTURE CPT-4: 52618 06/27/2017 ASSAY OF FREE THYROXINE CPT-4: 89416 06/27/2017 ASSAY THYROID STIM HORMONE CPT-4: 78203 06/27/2017 COMPREHEN METABOLIC PANEL CPT-4: 61139 06/27/2017 COMPLETE CBC W/AUTO DIFF WBC CPT-4: 02948 06/27/2017 EXC TR-EXT B9+REECE 0.5 CM< CPT-4: 16291 01/24/2017 THER/PROPH/DIAG INJ SC/IM CPT-4: 47619 08/02/2016 DEXAMETHASONE SODIUM PHOS CPT-4: J1100 08/02/2016 DESTRUCT PREMALG LESION (Cryosurgery) CPT-4: 17082 EXC TR-EXT B9+REECE 0.5 CM< CPT-4: 11964 08/01/2016 AEROBIC WOUND CULTURE & STN CPT-4: 24112 07/06/2016 CEFTRIAXONE SODIUM INJECTION CPT-4: J0696 05/25/2016 THER/PROPH/DIAG INJ SC/IM CPT-4: 30099 05/25/2016 THER/PROPH/DIAG INJ SC/IM CPT-4: 25144 04/26/2016 DEXAMETHASONE SODIUM PHOS CPT-4: J1100 04/26/2016 CEFTRIAXONE SODIUM INJECTION CPT-4: J0696 04/26/2016 THER/PROPH/DIAG INJ SC/IM CPT-4: 40456 04/26/2016 THER/PROPH/DIAG INJ SC/IM CPT-4: 79101 02/09/2016 TRIAMCINOLONE ACET INJ NOS CPT-4: J3301 02/09/2016 URINALYSIS NONAUTO W/O SCOPE CPT-4: 17337 01/24/2016 URINE CULTURE/ COLONY COUNT CPT-4: 01043 01/24/2016 THER/PROPH/DIAG INJ SC/IM CPT-4: 68993 12/08/2015 TRIAMCINOLONE ACET INJ NOS CPT-4: J3301 12/08/2015 THER/PROPH/DIAG INJ SC/IM CPT-4: 12814 10/07/2015 TRIAMCINOLONE ACET INJ NOS CPT-4: J3301 10/07/2015 DESTRUCT PREMALG LESION (Cryosurgery) CPT-4: 13310 THER/PROPH/DIAG INJ SC/IM CPT-4: 09357 03/16/2015 METHYLPREDNISOLONE 40 MG INJ CPT-4: J1030 03/16/2015 DESTRUCT PREMALG LESION (Cryosurgery) CPT-4: 64117 THER/PROPH/DIAG INJ SC/IM CPT-4: 14565 09/11/2014 METHYLPREDNISOLONE 40 MG INJ CPT-4: J1030 09/11/2014 TRIAMCINOLONE ACET INJ NOS CPT-4: J3301 09/11/2014 CEFTRIAXONE SODIUM INJECTION CPT-4: J0696 09/11/2014 THER/PROPH/DIAG INJ SC/IM CPT-4: 20583 09/11/2014 ROUTINE VENIPUNCTURE CPT-4: 57093 08/27/2014 COMPREHEN METABOLIC PANEL CPT-4: 16224 08/27/2014 COMPLETE CBC W/AUTO DIFF WBC CPT-4: 65090 08/27/2014 LIPID PANEL CPT-4: 89210 08/27/2014 ROUTINE VENIPUNCTURE CPT-4: 39812 07/21/2014 ASSAY OF AMYLASE CPT-4: 87964 07/21/2014 ASSAY OF LIPASE CPT-4: 74314 07/21/2014 THER/PROPH/DIAG INJ SC/IM CPT-4: 74139 07/15/2014 TRIAMCINOLONE ACET INJ NOS CPT-4: J3301 07/15/2014 ROUTINE VENIPUNCTURE CPT-4: 80422 05/14/2014 ASSAY OF FREE THYROXINE CPT-4: 02119 05/14/2014 ASSAY THYROID STIM HORMONE CPT-4: 63196 05/14/2014 COMPREHEN METABOLIC PANEL CPT-4: 02762 05/14/2014 COMPLETE CBC W/AUTO DIFF WBC CPT-4: 71721 05/14/2014 LIPID PANEL CPT-4: 99423 05/14/2014 CEFTRIAXONE SODIUM INJECTION CPT-4: J0696 04/21/2014 THER/PROPH/DIAG INJ SC/IM CPT-4: 76164 04/21/2014 THER/PROPH/DIAG INJ SC/IM CPT-4: 42003 04/21/2014 TRIAMCINOLONE ACET INJ NOS CPT-4: J3301 04/21/2014 THER/PROPH/DIAG INJ SC/IM CPT-4: 74834 03/04/2014 METHYLPREDNISOLONE 40 MG INJ CPT-4: J1030 03/04/2014 TRIAMCINOLONE ACET INJ NOS CPT-4: J3301 03/04/2014 CEFTRIAXONE SODIUM INJECTION CPT-4: J0696 03/04/2014 THER/PROPH/DIAG INJ SC/IM CPT-4: 45647 03/04/2014 TDAP VACCINE 7 YRS/> IM CPT-4: 97846 02/27/2014 IMMUNIZATION ADMIN CPT-4: 20974 02/27/2014 DESTRUCT PREMALG LESION (Cryosurgery) CPT-4: 31043 DESTRUCT PREMALG LES 2-14 CPT-4: 19508 01/13/2014 THER/PROPH/DIAG INJ SC/IM CPT-4: 18892 10/21/2013 METHYLPREDNISOLONE 40 MG INJ CPT-4: J1030 10/21/2013 TRIAMCINOLONE ACET INJ NOS CPT-4: J3301 10/21/2013 CEFTRIAXONE SODIUM INJECTION CPT-4: J0696 08/27/2013 THER/PROPH/DIAG INJ SC/IM CPT-4: 88699 08/27/2013 THER/PROPH/DIAG INJ SC/IM CPT-4: 66174 08/27/2013 METHYLPREDNISOLONE 40 MG INJ CPT-4: J1030 08/27/2013 TRIAMCINOLONE ACET INJ NOS CPT-4: J3301 08/27/2013 THER/PROPH/DIAG INJ SC/IM CPT-4: 40473 06/23/2013 METHYLPREDNISOLONE 40 MG INJ CPT-4: J1030 06/23/2013 TRIAMCINOLONE ACET INJ NOS CPT-4: J3301 06/23/2013 THER/PROPH/DIAG INJ SC/IM CPT-4: 56181 05/26/2013 METHYLPREDNISOLONE 40 MG INJ CPT-4: J1030 05/26/2013 TRIAMCINOLONE ACET INJ NOS CPT-4: J3301 05/26/2013 ROUTINE VENIPUNCTURE CPT-4: 09286 03/05/2013 ASSAY OF FREE THYROXINE CPT-4: 13352 03/05/2013 ASSAY THYROID STIM HORMONE CPT-4: 29672 03/05/2013 COMPREHEN METABOLIC PANEL CPT-4: 00219 03/05/2013 COMPLETE CBC W/AUTO DIFF WBC CPT-4: 92779 03/05/2013 A1C GLYCOSYLATED HEMOGLOBIN TEST CPT-4: 33553 013 DRAIN/INJECT JOINT/BURSA CPT-4: 57915 12/04/2012 METHYLPREDNISOLONE 40 MG INJ CPT-4: J1030 12/04/2012 TRIAMCINOLONE ACET INJ NOS CPT-4: J3301 12/04/2012 CEFTRIAXONE SODIUM INJECTION CPT-4: J0696 11/21/2012 THER/PROPH/DIAG INJ SC/IM CPT-4: 20576 11/21/2012 THER/PROPH/DIAG INJ SC/IM CPT-4: 37165 10/14/2012 METHYLPREDNISOLONE 40 MG INJ CPT-4: J1030 10/14/2012 TRIAMCINOLONE ACET INJ NOS CPT-4: J3301 10/14/2012 URINALYSIS NONAUTO W/O SCOPE CPT-4: 11450 09/27/2012 ROUTINE VENIPUNCTURE CPT-4: 08471 09/25/2012 ASSAY OF FREE THYROXINE CPT-4: 15371 09/25/2012 ASSAY THYROID STIM HORMONE CPT-4: 15683 09/25/2012 COMPREHEN METABOLIC PANEL CPT-4: 42382 09/25/2012 COMPLETE CBC W/AUTO DIFF WBC CPT-4: 42062 09/25/2012 C-REACTIVE PROTEIN CPT-4: 58180 09/25/2012 THER/PROPH/DIAG INJ SC/IM CPT-4: 68694 08/29/2012 METHYLPREDNISOLONE 40 MG INJ CPT-4: J1030 08/29/2012 TRIAMCINOLONE ACET INJ NOS CPT-4: J3301 08/29/2012 DESTRUCT PREMALG LESION (Cryosurgery) CPT-4: 74725 THER/PROPH/DIAG INJ SC/IM CPT-4: 86471 05/06/2012 METHYLPREDNISOLONE 40 MG INJ CPT-4: J1030 05/06/2012 TRIAMCINOLONE ACET INJ NOS CPT-4: J3301 05/06/2012 VITAMIN B 12 FOLIC ACID CPT-4: 84848|77650 05/06/2012 RBC SED RATE AUTOMATED CPT-4: 11370 05/06/2012 ROUTINE VENIPUNCTURE CPT-4: 81728 05/06/2012 ASSAY OF FREE THYROXINE CPT-4: 67310 05/06/2012 ASSAY THYROID STIM HORMONE CPT-4: 90598 05/06/2012 COMPREHEN METABOLIC PANEL CPT-4: 94203 05/06/2012 COMPLETE CBC W/AUTO DIFF WBC CPT-4: 00754 05/06/2012 ASSAY OF BLOOD/URIC ACID CPT-4: 17529 05/06/2012 THER/PROPH/DIAG INJ SC/IM CPT-4: 27190 03/19/2012 KETOROLAC TROMETHAMINE INJ CPT-4: J1885 03/19/2012 KETOROLAC TROMETHAMINE INJ CPT-4: J1885 01/30/2012 THER/PROPH/DIAG INJ SC/IM CPT-4: 40752 01/30/2012 PROMETHAZINE HCL INJECTION CPT-4: J2550 01/30/2012 THER/PROPH/DIAG INJ SC/IM CPT-4: 45714 01/24/2012 METHYLPREDNISOLONE 40 MG INJ CPT-4: J1030 01/24/2012 TRIAMCINOLONE ACET INJ NOS CPT-4: J3301 01/24/2012 THER/PROPH/DIAG INJ SC/IM CPT-4: 38564 09/13/2011 KETOROLAC TROMETHAMINE INJ CPT-4: J1885 09/13/2011 THER/PROPH/DIAG INJ SC/IM CPT-4: 24710 09/13/2011 PROMETHAZINE HCL INJECTION CPT-4: J2550 09/13/2011 CEFTRIAXONE SODIUM INJECTION CPT-4: J0696 07/20/2011 THER/PROPH/DIAG INJ SC/IM CPT-4: 87154 07/20/2011 THER/PROPH/DIAG INJ SC/IM CPT-4: 48719 07/20/2011 METHYLPREDNISOLONE INJECTION CPT-4: J2930 07/20/2011 URINALYSIS NONAUTO W/O SCOPE CPT-4: 28791 05/09/2011 CEFTRIAXONE SODIUM INJECTION CPT-4: J0696 05/09/2011 THER/PROPH/DIAG INJ SC/IM CPT-4: 13593 05/09/2011 THER/PROPH/DIAG INJ SC/IM CPT-4: 32257 05/09/2011 PROMETHAZINE HCL INJECTION CPT-4: J2550 05/09/2011 HYDRATION IV INFUSION INIT CPT-4: 19132 05/09/2011 DESTRUCT PREMALG LESION (Cryosurgery) CPT-4: 77095 DESTRUCT PREMALG LES 2-14 CPT-4: 75694 07/19/2010 REMOVAL OF SKIN TAGS <W/15 CPT-4: 84772 05/30/2010 THER/PROPH/DIAG INJ SC/IM CPT-4: 65399 04/05/2010 CEFTRIAXONE SODIUM INJECTION CPT-4: J0696 04/05/2010 TRIAMCINOLONE ACET INJ NOS CPT-4: J3301 04/05/2010 METHYLPREDNISOLONE 40 MG INJ CPT-4: J1030 04/05/2010 THER/PROPH/DIAG INJ SC/IM CPT-4: 26356 04/05/2010 TRIAMCINOLONE ACET INJ NOS CPT-4: J3301 03/09/2010 METHYLPREDNISOLONE 40 MG INJ CPT-4: J1030 03/09/2010 THER/PROPH/DIAG INJ SC/IM CPT-4: 58698 03/09/2010 THER/PROPH/DIAG INJ SC/IM CPT-4: 53467 03/09/2010 CEFTRIAXONE SODIUM INJECTION CPT-4: J0696 03/09/2010 [...] 1: 132/80 Code: 8480-6 BMI: 35.8 Code: 97500-7 Heart Rate 1: 88 bpm Height: 5'4" Respiratory Rate: 20 bpm SpO2: 95% Tempera ture: 36.9 (C) / 98.5 (F) Weight: 210 lbs 05/28/2019 Blood Pressure 1: 126/82 Code: 8480-6 BMI: 35.0 Code: 12609-7 Heart Rate 1: 88 bpm Height: 5'4" [...] 1: 128/90 Code: 8480-6 BMI: 37.2 Code: 08630-5 Heart Rate 1: 84 bpm Height: 5'4" Respiratory Rate: 20 bpm SpO2: 95% Tempera ture: 36.6 (C) / 97.8 (F) Weight: 217 lbs 08/27/2018 Blood Pressure 1: 128/88 Code: 8480-6 BMI: 38.3 Code: 45985-9 Heart Rate 1: 84 bpm Height: 5'4" [...] 1: 119/72 Code: 8480-6 BMI: 37.4 Code: 17321-1 Heart Rate 1: 82 bpm Height: 5'4" Respiratory Rate: 12 bpm SpO2: 94% Tempera ture: 35.2 (C) / 95.4 (F) Weight: 218 lbs 12/18/2017 Blood Pressure 1: 128/86 Code: 8480-6 BMI: 37.8 Code: 60212-8 Heart Rate 1: 84 bpm Height: 5'4" [...] 1: 128/82 Code: 8480-6 BMI: 35.5 Code: 01487-2 Heart Rate 1: 84 bpm Height: 5'4" [...] 1: 128/82 Code: 8480-6 BMI: 30.2 Code: 13944-0 Heart Rate 1: 80 bpm Height: 5'4" [...] 1: 128/86 Code: 8480-6 BMI: 32.8 Code: 87500-6 Heart Rate 1: 66 bpm Height: 5'4" Respiratory Rate: 18 bpm Temperature: 36 .3 (C) / 97.3 (F) Weight: 191 lbs 06/23/2013 Blood Pressure 1: 132/94 Code: 8480-6 BMI: 34.0 Code: 96611-3 Heart Rate 1: 84 bpm Height: 5'4" Respiratory Rate: 20 bpm Temperature: 36 .8 (C) / 98.2 (F) Weight: 198 lbs 05/26/2013 Blood Pressure 1: 114/80 Code: 8480-6 BMI: 35.0 Code: 77646-4 Heart Rate 1: 80 bpm Height: 5'4" Respiratory Rate: 20 bpm Temperature: 36 .4 (C) / 97.6 (F) Weight: 204 lbs 04/16/2013 Blood Pressure 1: 114/82 Code: 8480-6 BMI: 36.7 Code: 66548-7 Heart Rate 1: 84 bpm Height: 5'4" Respiratory Rate: 20 bpm Temperature: 36 .7 (C) / 98.0 (F) Weight: 214 lbs 03/05/2013 Blood Pressure 1: 136/90 Code: 8480-6 BMI: 37.1 Code: 87609-8 Heart Rate 1: 84 bpm Height: 5'4" [...] 1: 168/114 Code: 8480-6 BMI: 36.2 Code: 37235-4 Heart Rate 1: 104 bpm Height: 5'4" Respiratory Rate: 20 bpm Temperature: 36 .8 (C) / 98.2 (F) Weight: 211 lbs 11/22/2012 Blood Pressure 1: 128/90 Code: 8480-6 Heart Rate 1: 88 bpm Respiratory Rate: 20 bpm SpO2: 96% Temperature: 36.8 (C) / 98.2 (F) 11/21/2012 Blood Pressure 1: 146/100 Code: 8480-6 BMI: 35.7 Code: 65145-6 Heart Rate 1: 96 bpm Height: 5'4" [...] 1: 138/100 Code: 8480-6 BMI: 35.7 Code: 78443-2 Heart Rate 1: 96 bpm Height: 5'4" Respiratory Rate: 20 bpm Temperature: 36 .8 (C) / 98.2 (F) Weight: 208 lbs 05/06/2012 Blood Pressure 1: 154/102 Code: 8480-6 BMI: 34.7 Code: 75546-8 Heart Rate 1: 116 bpm Height: 5'4" Respiratory Rate: 20 bpm Temperature: 36 .8 (C) / 98.2 (F) Weight: 202 lbs 04/03/2012 Blood Pressure 1: 134/94 Code: 8480-6 BMI: 34.8 Code: 31829-6 Heart Rate 1: 108 bpm Height: 5'4" Respiratory Rate: 20 bpm Temperature: 36 .8 (C) / 98.2 (F) Weight: 203 lbs 03/19/2012 Blood Pressure 1: 148/106 Code: 8480-6 BMI: 35.0 Code: 43893-6 Heart Rate 1: 100 bpm Height: 5'4" Respiratory Rate: 20 bpm Temperature: 36 .6 (C) / 97.9 (F) Weight: 204 lbs 02/22/2012 Blood Pressure 1: 146/94 Code: 8480-6 He art Rate 1: 88 bpm 02/21/2012 Blood Pressure 1: 172/120 Code: 8480-6 B lood Pressure 2: 152/106 Code: 8480-6 Heart Rate 1: 116 bpm 02/20/2012 Blood Pressure 1: 160/100 Code: 8480-6 BMI: 32.0 Code: 38039-1 Heart Rate 1: 84 bpm Height: 5'7" Temperature: 36.5 (C) / 97.7 (F) Weight: 204 lbs 01/30/2012 Blood Pressure 1: 152/110 Code: 8480-6 BMI: 32.0 Code: 82371-4 Heart Rate 1: 116 bpm Height: 5'7" Respiratory Rate: 20 bpm Temperature: 37 .0 (C) / 98.6 (F) Weight: 204 lbs 01/24/2012 Blood Pressure 1: 146/100 Code: 8480-6 BMI: 32.0 Code: 41913-5 Heart Rate 1: 100 bpm Height: 5'7" Respiratory Rate: 20 bpm Temperature: 36 .7 (C) / 98.0 (F) Weight: 204 lbs 01/10/2012 Blood Pressure 1: 156/94 Code: 8480-6 BMI: 32.6 Code: 23233-6 Heart Rate 1: 72 bpm Height: 5'7" Respiratory Rate: 20 bpm Temperature: 36 .8 (C) / 98.2 (F) Weight: 208 lbs 12/11/2011 Blood Pressure 1: 146/100 Code: 8480-6 Heart Rat e 1: 116 bpm Height: 5'7" Respiratory Rate: 20 bpm Temperature: 36.9 (C) / 98.4 (F) We ight: 11/09/2011 Blood Pressure 1: 148/96 Code: 8480-6 BMI: 32.1 Code: 21906-4 Heart Rate 1: 116 bpm Height: 5'7" Respiratory Rate: 20 bpm Temperature: 36 .7 (C) / 98.0 (F) Weight: 205 lbs 09/13/2011 Blood Pressure 1: 126/88 Code: 8480-6 Heart Rate 1: 88 bpm Height: 5'7" Respiratory Rate: 20 bpm Temperature: 36.9 (C) / 98.4 (F) We ight: 08/31/2011 Blood Pressure 1: 118/82 Code: 8480-6 BMI: 32.0 Code: 06061-3 Heart Rate 1: 80 bpm Height: 5'7" Temperature: 36.4 (C) / 97.6 (F) Weight: 204 lbs 07/06/2011 Blood Pressure 1: 128/86 Code: 8480-6 BMI: 30.9 Code: 95770-6 Heart Rate 1: 92 bpm Height: 5'7" Respiratory Rate: 20 bpm Temperature: 36 .9 (C) / 98.4 (F) Weight: 197 lbs 06/06/2011 Blood Pressure 1: 112/74 Code: 8480-6 BMI: 31.0 Code: 40848-6 Heart Rate 1: 72 bpm Height: 5'7" [...] 1: 128/92 Code: 8480-6 BMI: 33.6 Code: 12679-5 Heart Rate 1: 104 bpm Height: 5'4" [...] Check-up Encounters Encounter Performer Location Codes Date ([id number]) OFFICE/OUTPATIENT VISIT EST Diagnosis: Cellulitis of left foot[ICD10: L03.116] María Elena Hicks [facility] CPT-4: 16302 03/04/2020 ([id number]) OFFICE/OUTPATIENT VISIT EST Diagnosis: Blister (nonthermal), right foot, initial encounter[ICD10: S90.821A] Diagnosis: Type 2 diabetes mellitus with hyperglycemia[ICD10: E11.65] Diagnosis: Lower extremity edema[ICD10: R60.0] Kathleen Hicks [facility] CPT-4: 19516 02/12/2020 ([id number]) OFFICE/OUTPATIENT VISIT EST Diagnosis: Essential (primary) hypertension[ICD10: I10] Diagnosis: Type 2 diabetes mellitus with hyperglycemia[ICD10: E11.65] Diagnosis: Allergic rhinitis[ICD10: J30.9] María Elena APPIAH DO [facility] CPT-4: 71239 01/13/2020 ([id number]) OFFICE/OUTPATIENT VISIT EST Diagnosis: Type 2 diabetes mellitus with hyperglycemia[ICD10: E11.65] María Elena APPIAH DO [facility] CPT-4: 57074 11/20/2019 ([id number]) OFFICE/OUTPATIENT VISIT EST Diagnosis: Ingrowing nail[ICD10: L60.0] Diagnosis: Type 2 diabetes mellitus with hyperglycemia[ICD10: E11.65] Kathleen APPIAH [facility] CPT-4: 32384 10/07/2019 ([id number]) OFFICE/OUTPATIENT VISIT EST Diagnosis: DM w/o complication type II, uncontrolled[ICD10: E11.65] Diagnosis: Hypertriglyceridemia[ICD10: E78.1] Diagnosis: Essential hypertension[ICD10: I10] María Elenaalcides MONTEROLESLIE APPIAH [employer] [facility] CPT-4: 48624 09/30/2019 ([id number]) NURSE/OUTPATIENT VISIT EST Diagnosis: Essential (primary) hypertension[ICD10: I10] Diagnosis: Cervicalgia[ICD10: M54.2] Diagnosis: Hyperglycemia, 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: R73.9] Diagnosis: Mixed hyperlipidemia[ICD10: E78.2] María Elena Waltyesimaryjane MONTEROLESLIE TED APPIAH [employer] CPT-4: 90905 09/29/2019 ([id number]) OFFICE/OUTPATIENT VISIT EST Diagnosis: Essential (primary) hypertension[ICD10: I10] Diagnosis: Fall from bed, sequela[ICD10: W06.XXXS] María Elena Waltdawn KYLAH BRAUNALCIDES Fabiola APPIAH [employer] [facility] CPT-4: 65034 05/28/2019 ([id number]) NURSE/OUTPATIENT VISIT EST Diagnosis: Essential (primary) hypertension[ICD10: I10] María Elenaalcides Appiah MARÍA ELENA Fabiola APPIAH [facility] CPT-4: 58430 05/19/2019 ([id number]) OFFICE/OUTPATIENT VISIT EST Diagnosis: Essential (primary) hypertension[ICD10: I10] Diagnosis: Type 2 diabetes mellitus with hyperglycemia[ICD10: E11.65] Diagnosis: Intervertebral disc disorders with radiculopathy, 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] Diagnosis: Hormone replacement therapy[ICD10: Z79.890] María Elena APPIAH [facility] CPT-4: 80066 01/22/2019 ([id number]) OFFICE/OUTPATIENT VISIT EST Diagnosis: Essential (primary) hypertension[ICD10: I10] Diagnosis: Type 2 diabetes mellitus with hyperglycemia[ICD10: E11.65] María Elena APPIAH [facility] CPT-4: 36813 09/30/2018 ([id number]) OFFICE/OUTPATIENT VISIT EST Diagnosis: Pain in left elbow[ICD10: M25.522] Diagnosis: Acute stress reaction[ICD10: F43.0] Diagnosis: Primary insomnia[ICD10: F51.01] Diagnosis: Abnormal weight gain[ICD10: R63.5] María Elena APPIAH [facility] CPT-4: 25726 08/27/2018 ([id number]) OFFICE/OUTPATIENT VISIT EST Diagnosis: Acute recurrent sinusitis, 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: J01.91] Diagnosis: Follicular disorder, 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: L73.9] Diagnosis: Tinea corporis[ICD10: B35.4] María Elena APPIAH [facility] CPT-4: 82594 08/09/2018 ([id number]) OFFICE/OUTPATIENT VISIT EST Diagnosis: Tinea corporis[ICD10: B35.4] Diagnosis: Anxiety disorder, 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: F41.9] Diagnosis: Menopausal and female climacteric states[ICD10: N95.1] María Elena APPIAH [facility] CPT-4: 32956 07/22/2018 ([id number]) NURSE/OUTPATIENT VISIT EST Diagnosis: Cellulitis of right toe[ICD10: L03.031] María Elena APPIAH [facility] CPT-4: 22536 06/19/2018 ([id number]) OFFICE/OUTPATIENT VISIT EST Diagnosis: Cellulitis of right toe[ICD10: L03.031] Kathleenfloyd Zuniga KYLAH APPIAH [facility] CPT-4: 78711 06/17/2018 ([id number]) OFFICE/OUTPATIENT VISIT EST Diagnosis: Migraine without aura, intractable, without status migrainosus[ICD10: G43.019] Diagnosis: Zoster without complications[ICD10: B02.9] Kathleen APPIAH [facility] CPT-4: 42381 05/16/2018 ([id number]) OFFICE/OUTPATIENT VISIT EST Diagnosis: Cellulitis of right lower limb[ICD10: L03.115] Kathleen APPIAH [facility] CPT-4: 71855 03/20/2018 ([id number]) OFFICE/OUTPATIENT VISIT EST Diagnosis: Cellulitis of right lower limb[ICD10: L03.115] Kathleen APPIAH [facility] CPT-4: 27178 03/18/2018 ([id number]) OFFICE/OUTPATIENT VISIT EST Diagnosis: Cellulitis of right lower limb[ICD10: L03.115] Kathleen APPIAH [facility] CPT-4: 02935 03/15/2018 ([id number]) OFFICE/OUTPATIENT VISIT EST Diagnosis: Acute sinusitis, 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: J01.90] Kathleen APPIAH [facility] CPT-4: 99790 02/11/2018 ([id number]) NURSE/OUTPATIENT VISIT EST Diagnosis: Otitis media, unspecified, right ear[ICD10: H66.91] María Elena APPIAH [facility] CPT-4: 65591 02/01/2018 ([id number]) OFFICE/OUTPATIENT VISIT EST Diagnosis: Acute suppurative otitis media without spontaneous rupture of ear drum, left ear[ICD10: H66.002] Diagnosis: Abnormal weight gain[ICD10: R63.5] Diagnosis: Intervertebral disc disorders with radiculopathy, 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] Kathleen APPIAH [facility] CPT-4: 99 214 01/30/2018 ([id number]) PREV VISIT EST AGE 40-64 Diagnosis: Encounter for general adult medical examination without abnormal findings[ICD10: Z00.00] Diagnosis: Essential (primary) hypertension[ICD10: I10] Diagnosis: Mixed hyperlipidemia[ICD10: E78.2] Diagnosis: Type 2 diabetes mellitus with hyperglycemia[ICD10: E11.65] Diagnosis: 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] María Elena APPIAH [facility] CPT-4: 05488 12/18/2017 ([id number]) OFFICE/OUTPATIENT VISIT EST Diagnosis: Cellulitis of right toe[ICD10: L03.031] Diagnosis: Mixed hyperlipidemia[ICD10: E78.2] Diagnosis: Essential (primary) hypertension[ICD10: I10] Diagnosis: Hyperglycemia, 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: R73.9] Diagnosis: Nontoxic goiter, 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] María Elena APPIAH [facility] CPT-4: 17614 12/10/2017 ([id number]) OFFICE/OUTPATIENT VISIT EST Diagnosis: Cellulitis of right toe[ICD10: L03.031] Diagnosis: Acute sinusitis, 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: J01.90] Kathleen APPIAH [facility] CPT-4: 55809 12/07/2017 OFFICE/OUTPATIENT VISIT EST Diagnosis: Acute maxillary sinusitis, 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: J01.00] Kathleen APPIAH DO [facility] CPT-4: 11234 10/08/2017 ([id number]) OFFICE/OUTPATIENT VISIT EST Diagnosis: Cellulitis of left toe[ICD10: L03.032] María Elena [facility] CPT-4: 75194 09/21/2017 ([id number]) OFFICE/OUTPATIENT VISIT EST Diagnosis: Insomnia, 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: G47.00] Diagnosis: Major depressive disorder, single episode, 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: F32.9] Diagnosis: Anxiety disorder, 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: F41.9] Diagnosis: Cellulitis of left toe[ICD10: L03.032] Diagnosis: Snoring[ICD10: R06.83] Kathleen APPIAH DO [facility] CPT-4: 36355 09/20/2017 ([id number]) OFFICE/OUTPATIENT VISIT EST Diagnosis: Cellulitis of left toe[ICD10: L03.032] María Elena APPIAH [employer] [facility] CPT-4: 60788 07/19/2017 OFFICE/OUTPATIENT VISIT EST Diagnosis: Chronic sinusitis, 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: J32.9] Diagnosis: Generalized hyperhidrosis[ICD10: R61] Kathleen APPIAH DO [facility] CPT-4: 97764 06/27/2017 ([id number]) OFFICE/OUTPATIENT VISIT EST Diagnosis: Intervertebral disc disorders with radiculopathy, 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] Diagnosis: Primary insomnia[ICD10: F51.01] Diagnosis: Other fatigue[ICD10: R53.83] María Elena ValdesJj IGNACIO GAR[facility] CPT-4: 44888 04/10/2017 ([id number]) OFFICE/OUTPATIENT VISIT EST Diagnosis: Primary insomnia[ICD10: F51.01] Diagnosis: Localized edema[ICD10: R60.0] Diagnosis: 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] María Elena APPIAH [employer] [facility] CPT-4: 85079 12/13/2016 ([id number]) OFFICE/OUTPATIENT VISIT EST Diagnosis: Primary insomnia[ICD10: F51.01] Diagnosis: Cyanosis[ICD10: R23.0] María Elena Waydawn MARÍA ELENA LucioJj CIRO B[facility] CPT-4: 82390 11/01/2016 ([id number]) PREV VISIT EST AGE 40-64 Diagnosis: Encounter for gynecological examination (general) (routine) without abnormal findings[ICD10: Z01.419] Diagnosis: Encounter for routine child health examination without abnormal findings[ICD10: Z00.129] María Elena Wayyesimaryjane ELLISMARÍA ELENA LucioJj IGNACIO [employer] CPT-4: 56299 10/17/2016 ([id number]) OFFICE/OUTPATIENT VISIT EST Diagnosis: Other seasonal allergic rhinitis[ICD10: J30.2] María Elena Waltdawn MARÍA ELENA LucioJj IGNACIO GARIBAY [facility] CPT-4: 62132 10/10/2016 ([id number]) OFFICE/OUTPATIENT VISIT EST Diagnosis: Pain in left arm[ICD10: M79.602] Diagnosis: Contact with and (suspected) exposure to potentially hazardous body fluids[ICD10: Z77.21] Diagnosis: 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, 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] Diagnosis: Unspecified open wound, right foot, sequela[ICD10: S91.301S] María Elena APPIAH [employer] [facility] CPT-4: 09353 09/19/2016 ([id number]) OFFICE/OUTPATIENT VISIT EST Diagnosis: Chronic sinusitis, 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: J32.9] Diagnosis: Allergic rhinitis due to pollen[ICD10: J30.1] María Elena APPIAH [employer] [facility] CPT-4: 43095 08/24/2016 ([id number]) OFFICE/OUTPATIENT VISIT EST Diagnosis: Acute bronchitis, 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: J20.9] María Elena APPIAH [employer] [facility] CPT-4: 88316 08/16/2016 ([id number]) OFFICE/OUTPATIENT VISIT EST Diagnosis: Otitis media, unspecified, right ear[ICD10: H66.91] Diagnosis: Acute bronchitis, 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: J20.9] María Elena APPIAH [employer] [facility] CPT-4: 20826 08/10/2016 ([id number]) OFFICE/OUTPATIENT VISIT EST Diagnosis: Acute recurrent sinusitis, 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: J01.91] Diagnosis: Allergic rhinitis due to pollen[ICD10: J30.1] María Elena APPIAH [employer] [facility] CPT-4: 78800 08/02/2016 ([id number]) OFFICE/OUTPATIENT VISIT EST Diagnosis: Pain in unspecified joint[ICD10: M25.50] María Elena APPIAH [employer] [facility] CPT-4: 82052 07/27/2016 OFFICE/OUTPATIENT VISIT EST Diagnosis: 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] Diagnosis: Acute recurrent sinusitis, 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: J01.91] Diagnosis: Other fatigue[ICD10: R53.83] Diagnosis: Primary insomnia[ICD10: F51.01] Diagnosis: Pain in unspecified joint[ICD10: M25.50] María Elena APPIAH [employer] [facility] CPT-4: 00333 07/20/2016 ([id number]) OFFICE/OUTPATIENT VISIT EST Diagnosis: Blister (nonthermal), left great toe, initial encounter[ICD10: S90.422A] Loan APPIAH [employer] [facility] CPT-4: 59216 ([id number]) OFFICE/OUTPATIENT VISIT EST Diagnosis: Acute recurrent sinusitis, 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: J01.91] María Elena APPIAH [employer] [facility] CPT-4: 80188 05/25/2016 ([id number]) OFFICE/OUTPATIENT VISIT EST Diagnosis: Acute sinusitis, 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: J01.90] María Elena APPIAH [employer] [facility] CPT-4: 80200 04/26/2016 ([id number]) OFFICE/OUTPATIENT VISIT EST Diagnosis: Flushing[ICD10: R23.2] Diagnosis: Primary insomnia[ICD10: F51.01] María Elena APPIAH [employer] [facility] CPT-4: 48812 03/02/2016 ([id number]) OFFICE/OUTPATIENT VISIT EST Diagnosis: Other seasonal allergic rhinitis[ICD10: J30.2] Loan APPIAH [employer] [facility] CPT-4: 79316 02/09/2016 ([id number]) OFFICE/OUTPATIENT VISIT EST Diagnosis: Primary insomnia[ICD10: F51.01] Diagnosis: Urinary tract infection, site not specified[ICD10: N39.0] María Elena APPIAH [employer] [facility] CPT-4: 83570 01/24/2016 ([id number]) OFFICE/OUTPATIENT VISIT EST Diagnosis: Other specified disorders of Eustachian tube, bilateral[ICD10: H69.83] Diagnosis: Allergic rhinitis, 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: J30.9] Loan APPIAH [employer] [facility] CPT-4: 39072 12/23/2015 ([id number]) OFFICE/OUTPATIENT VISIT EST Diagnosis: Acute recurrent sinusitis, 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: J01.91] Diagnosis: 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] Diagnosis: Allergic rhinitis, 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: J30.9] María Elena APPIAH DO [facility] CPT-4: 17474 12/08/2015 ([id number]) OFFICE/OUTPATIENT VISIT EST Diagnosis: Allergic rhinitis, 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: J30.9] Diagnosis: Pain in unspecified joint[ICD10: M25.50] María Elena APPIAH DO [facility] CPT-4: 61156 10/07/2015 ([id number]) OFFICE/OUTPATIENT VISIT EST Diagnosis: Essential (primary) hypertension[ICD10: I10] María Elena APPIAH DO [facility] CPT-4: 54298 10/06/2015 OFFICE/OUTPATIENT VISIT EST Diagnosis: Localized enlarged lymph nodes[ICD10: R59.0] Diagnosis: Local infection of the skin and subcutaneous tissue, 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: L08.9] June Felixdaniella APPIAH DO [facility] CPT- 4: 04239 09/14/2015 ([id number]) OFFICE/OUTPATIENT VISIT EST Diagnosis: Essential (primary) hypertension[ICD10: I10] Diagnosis: Actinic keratosis[ICD10: L57.0] María Elena APPIAH DO [facility] CPT-4: 95407 09/07/2015 ([id number]) OFFICE/OUTPATIENT VISIT EST Diagnosis: Essential (primary) hypertension[ICD10: I10] Diagnosis: Acute stress reaction[ICD10: F43.0] María Elena APPIAH [employer] [facility] CPT-4: 03461 08/18/2015 ([id number]) OFFICE/OUTPATIENT VISIT EST Diagnosis: Essential (primary) hypertension[ICD10: I10] María Elena APPIAH DO [employer] CPT-4: 48924 07/07/2015 ([id number]) OFFICE/OUTPATIENT VISIT EST Diagnosis: Essential (primary) hypertension[ICD10: I10] María Elena APPIAH DO [facility] CPT-4: 94445 06/24/2015 ([id number]) OFFICE/OUTPATIENT VISIT EST Diagnosis: Essential (primary) hypertension[ICD10: I10] María Elena APPIAH DO [facility] CPT-4: 30957 06/21/2015 ([id number]) OFFICE/OUTPATIENT VISIT EST Diagnosis: Essential (primary) hypertension[ICD10: I10] Diagnosis: Mixed hyperlipidemia[ICD10: E78.2] Diagnosis: Acute stress reaction[ICD10: F43.0] Diagnosis: Primary insomnia[ICD10: F51.01] María Elena APPIAH [facility] CPT-4: 20211 06/16/2015 ([id number]) OFFICE/OUTPATIENT VISIT EST Diagnosis: INSOMNIA NOS[ICD9: 780.52] Diagnosis: HYPERTENSION[ICD9: 401.9] Diagnosis: Stress reaction[ICD9: 308.9] María Elena APPIAH [facility] CPT-4: 83462 06/02/2015 ([id number]) OFFICE/OUTPATIENT VISIT EST Diagnosis: HYPERTENSION[ICD9: 401.9] Diagnosis: Stress reaction[ICD9: 308.9] María Elena APPIAH [facility] CPT-4: 90705 05/20/2015 ([id number]) OFFICE/OUTPATIENT VISIT EST Diagnosis: Skin lesion[ICD9: 709.9] 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] María Elena APPIAH [facility] CPT-4: 18272 05/10/2015 ([id number]) OFFICE/OUTPATIENT VISIT EST Diagnosis: SINUSITIS, ACUTE[ICD9: 461.9] Diagnosis: ALLERGIC RHINITIS[ICD9: 477.9] Diagnosis: DERMATITIS NOS[ICD9: 692.9] María Elena REHMAN [facility] CPT-4: 29307 03/16/2015 OFFICE/OUTPATIENT VISIT EST Diagnosis: Otitis media[ICD9: 382.9] Diagnosis: SINUSITIS, ACUTE[ICD9: 461.9] June Flores MARÍA ELENA APPIAH [facility] CPT-4: 51506 09/11/2014 ([id number]) OFFICE/OUTPATIENT VISIT EST Diagnosis: HYPERLIPIDEMIA NEC/NOS[ICD9: 272.4] María Elena APPIAH DO [facility] CPT-4: 83901 08/31/2014 ([id number]) OFFICE/OUTPATIENT VISIT EST Diagnosis: - I - HYPERTENSION[ICD9: 401.9] Diagnosis: HYPERLIPIDEMIA NEC/NOS[ICD9: 272.4] María Elena APPIAH DO [facility] CPT-4: 85651 08/27/2014 ([id number]) OFFICE/OUTPATIENT VISIT EST Diagnosis: ABDOMINAL PAIN[ICD9: 789.00] Diagnosis: DYSPEPSIA[ICD9: 536.8] Diagnosis: Thoracic back pain[ICD9: 724.1] María Elena APPIAH DO [facility] CPT-4: 25220 07/21/2014 ([id number]) OFFICE/OUTPATIENT VISIT EST Diagnosis: ALLERGIC RHINITIS[ICD9: 477.9] María Elena APPIAH DO [facility] CPT-4: 02657 07/15/2014 ([id number]) OFFICE/OUTPATIENT VISIT EST Diagnosis: EDEMA[ICD9: 782.3] Diagnosis: Chronic insomnia[ICD9: 780.52] María Elena APPIAH [facility] CPT-4: 79127 05/18/2014 ([id number]) OFFICE/OUTPATIENT VISIT EST Diagnosis: Thyromegaly[ICD9: 240.9] Diagnosis: - I - HYPERTENSION[ICD9: 401.9] Diagnosis: ROUTINE MEDICAL EXAM[ICD9: V70.0] Diagnosis: EDEMA[ICD9: 782.3] María Elena APPIAH DO [facility] CPT-4: 89975 05/14/2014 OFFICE/OUTPATIENT VISIT EST Diagnosis: BRONCHITIS, ACUTE[ICD9: 466.0] Diagnosis: SINUSITIS, ACUTE[ICD9: 461.9] María Elena APPIAH DO [facility] CPT-4: 82326 04/21/2014 OFFICE/OUTPATIENT VISIT EST Diagnosis: SINUSITIS, ACUTE[ICD9: 461.9] June Sandra MARÍA ELENA APPIAH [facility] CPT-4: 03289 03/04/2014 ([id number]) OFFICE/OUTPATIENT VISIT EST Diagnosis: VACCINE FOR TDAP[ICD10: Z23] María Elena APPIAH [facility] CPT-4: 02464 02/27/2014 ([id number]) OFFICE/OUTPATIENT VISIT EST Diagnosis: Seborrheic keratoses, inflamed[ICD9: 702.11] Diagnosis: ACTINIC KERATOSIS[ICD9: 702.0] Diagnosis: INSOMNIA NOS[ICD9: 780.52] María Elena PANDYA [facility] CPT-4: 11094 01/13/2014 OFFICE/OUTPATIENT VISIT EST 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] Diagnosis: ALLERGIC RHINITIS[ICD9: 477.9] Diagnosis: Serous otitis media[ICD9: 381.4] María Elena APPIAH [facility] CPT-4: 65612 12/24/2013 ([id number]) OFFICE/OUTPATIENT VISIT EST Diagnosis: SINUSITIS, ACUTE[ICD9: 461.9] Diagnosis: ALLERGIC RHINITIS[ICD9: 477.9] 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] María Elena APPIAH [facility] CPT-4: 49814 11/12/2013 ([id number]) OFFICE/OUTPATIENT VISIT EST Diagnosis: ALLERGIC RHINITIS[ICD9: 477.9] Diagnosis: SINUSITIS, ACUTE[ICD9: 461.9] María Elena APPIAH [facility] CPT-4: 34020 10/21/2013 ([id number]) OFFICE/OUTPATIENT VISIT EST Diagnosis: ASYMPTOMATIC VARICOSE VEINS[ICD9: 454.9] Diagnosis: INSOMNIA NOS[ICD9: 780.52] María Elena PANDYA [facility] CPT-4: 26059 09/22/2013 OFFICE/OUTPATIENT VISIT EST Diagnosis: SINUSITIS, ACUTE[ICD9: 461.9] June Flores MARÍA ELENA APPIAH [facility] CPT-4: 19703 08/27/2013 ([id number]) OFFICE/OUTPATIENT VISIT EST Diagnosis: CEPHALGIA[ICD9: 784.0] Diagnosis: CEPHALGIA, TENSION[ICD9: 307.81] 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] María Elena APPIAH DO [facility] CPT-4: 65055 08/04/2013 ([id number]) OFFICE/OUTPATIENT VISIT EST Diagnosis: Cervicalgia[ICD9: 723.1] Diagnosis: SPASM OF MUSCLE[ICD9: 728.85] Diagnosis: CEPHALGIA, TENSION[ICD9: 307.81] María Elena APPIAH DO [facility] CPT-4: 11180 07/23/2013 ([id number]) OFFICE/OUTPATIENT VISIT EST 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] Diagnosis: ALLERGIC RHINITIS[ICD9: 477.9] María Elena APPIAH DO [facility] CPT-4: 33869 06/23/2013 ([id number]) OFFICE/OUTPATIENT VISIT EST Diagnosis: ALLERGIC RHINITIS[ICD9: 477.9] Diagnosis: ACUTE SEROUS OTITIS MEDIA[ICD9: 381.01] 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] María Elena APPIAH [facility] CPT-4: 32898 05/26/2013 ([id number]) OFFICE/OUTPATIENT VISIT EST Diagnosis: HYPERTENSION[ICD9: 401.9] Diagnosis: EDEMA[ICD9: 782.3] Diagnosis: Serous otitis media[ICD9: 381.4] María Elena APPIAH [facility] CPT-4: 85568 04/16/2013 ([id number]) OFFICE/OUTPATIENT VISIT EST Diagnosis: SINUSITIS, ACUTE[ICD9: 461.9] Diagnosis: ALLERGIC RHINITIS[ICD9: 477.9] Diagnosis: EDEMA[ICD9: 782.3] Diagnosis: Thyromegaly[ICD9: 240.9] Diagnosis: MALAISE AND FATIGUE[ICD9: 780.79] María Elena APPIAH [facility] CPT-4: 50884 03/05/2013 ([id number]) OFFICE/OUTPATIENT VISIT EST Diagnosis: PAIN, LOWER BACK[ICD9: 724.2] Diagnosis: SPASM OF MUSCLE[ICD9: 728.85] María Elena JUARES LucioJj [facility] CPT-4: 92216 12/23/2012 OFFICE/OUTPATIENT VISIT EST Diagnosis: Low back pain[ICD9: 724.2] Lashawn Hicks KRISTYN PANDYA [facility] CPT-4: 80311 12/16/2012 ([id number]) OFFICE/OUTPATIENT VISIT EST Diagnosis: PAIN, LOWER BACK[ICD9: 724.2] Diagnosis: SCIATICA[ICD9: 724.3] Diagnosis: Lumbar herniated disc[ICD9: 722.10] María Elena COLON LucioJj [facility] CPT-4: 36993 12/09/2012 ([id number]) OFFICE/OUTPATIENT VISIT EST Diagnosis: PAIN, LOWER BACK[ICD9: 724.2] Diagnosis: SCIATICA[ICD9: 724.3] Diagnosis: LUMBAR DISC DISPLACEMENT[ICD9: 722.10] María Elena MARIN LucioJj [facility] CPT-4: 22835 12/04/2012 OFFICE/OUTPATIENT VISIT EST Diagnosis: Pneumonia[ICD9: 486] Mary JUARES LucioJj [facility] CPT-4: 38415 11/22/2012 ([id number]) OFFICE/OUTPATIENT VISIT EST Diagnosis: PNEUMONIA, ORGANISM[ICD9: 486] Diagnosis: Exacerbation of RAD (reactive airway disease)[ICD9: 493.92] María Elena JUARES LucioJj [facility] CPT-4: 40485 11/21/2012 OFFICE/OUTPATIENT VISIT EST Diagnosis: HYPERTENSION[ICD9: 401.9] Diagnosis: Cephalgia[ICD9: 784.0] Lashawn Hicks IGNACIO GARIBAY [facility] CPT-4: 50607 10/29/2012 ([id number]) OFFICE/OUTPATIENT VISIT EST Diagnosis: MALAISE AND FATIGUE[ICD9: 780.79] Diagnosis: ARTHRALGIA-MULTIPLE SITES[ICD9: 719.49] María Elena REED LucioJj [facility] CPT-4: 67206 10/14/2012 ([id number]) OFFICE/OUTPATIENT VISIT EST Diagnosis: URINARY FREQUENCY[ICD9: 788.41] María Elena APPIAH [facility] CPT-4: 19877 09/27/2012 ([id number]) OFFICE/OUTPATIENT VISIT EST Diagnosis: MALAISE AND FATIGUE[ICD9: 780.79] Diagnosis: ARTHRALGIA-MULTIPLE SITES[ICD9: 719.49] María Elena WAYNDER [facility] CPT-4: 83155 09/25/2012 ([id number]) OFFICE/OUTPATIENT VISIT EST Diagnosis: SINUSITIS, ACUTE[ICD9: 461.9] 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] María Elena APPIAH [facility] CPT-4: 76041 08/29/2012 OFFICE/OUTPATIENT VISIT EST Diagnosis: ACTINIC KERATOSIS[ICD9: 702.0] Diagnosis: Inflamed seborrheic keratosis[ICD9: 702.11] Diagnosis: Skin cancer of face[ICD9: 173.31] Diagnosis: HYPERTENSION[ICD9: 401.9] María Elena WAY NDERose Mary [facility] CPT-4: 71185 08/12/2012 ([id number]) OFFICE/OUTPATIENT VISIT EST Diagnosis: ARTHRALGIA-MULTIPLE SITES[ICD9: 719.49] Diagnosis: GOUT[ICD9: 274.9] Diagnosis: HYPERTENSION[ICD9: 401.9] Diagnosis: Tachycardia[ICD9: 785.0] María Elena ValdesJj FRITZ KARLOS [facility] CPT-4: 42390 05/06/2012 ([id number]) OFFICE/OUTPATIENT VISIT EST Diagnosis: INSOMNIA NOS[ICD9: 780.52] María Elena SIMONS MUMTAZ [facility] CPT-4: 35234 04/03/2012 ([id number]) OFFICE/OUTPATIENT VISIT EST Diagnosis: INSOMNIA NOS[ICD9: 780.52] Diagnosis: HYPERTENSION[ICD9: 401.9] Diagnosis: MIGRAINE NOS/NOT INTRCBL[ICD9: 346.90] María Elena MONTEROLui MARIN Fabiola WAYNDER [facility] CPT-4: 97642 03/19/2012 ([id number]) OFFICE/OUTPATIENT VISIT EST Diagnosis: CELLULITIS[ICD9: 682.9] Diagnosis: Ankle pain[ICD9: 719.47] Diagnosis: HYPERTENSION[ICD9: 401.9] María Elena JUARES LucioJj WALT MOJICARose Mary [facility] CPT-4: 34885 02/20/2012 ([id number]) OFFICE/OUTPATIENT VISIT EST Diagnosis: MIGRAINE NOS/NOT INTRCBL[ICD9: 346.90] Diagnosis: Vomiting[ICD9: 787.03] María Elena Hicks WALTGALINA Bazzi [facility] CPT-4: 70435 01/30/2012 ([id number]) OFFICE/OUTPATIENT VISIT EST Diagnosis: EDEMA[ICD9: 782.3] Diagnosis: HYPERTENSION[ICD9: 401.9] Diagnosis: ALLERGIC RHINITIS[ICD9: 477.9] Diagnosis: ARTHRALGIA-MULTIPLE SITES[ICD9: 719.49] María Elena Hicks [place] [facility] CPT-4: 52946 01/24/2012 ([id number]) OFFICE/OUTPATIENT VISIT EST Diagnosis: SPASM OF MUSCLE[ICD9: 728.85] Diagnosis: Thoracic back pain[ICD9: 724.1] Diagnosis: Cervical pain[ICD9: 723.1] María Elena Hicks KRISTYN MUMTAZ [facility] CPT-4: 94626 01/10/2012 OFFICE/OUTPATIENT VISIT EST Diagnosis: PAIN, LOWER BACK[ICD9: 724.2] Diagnosis: LUMBAR DISC DISPLACEMENT[ICD9: 722.10] María Elena Hicks [place] [facility] CPT-4: 99604 12/11/2011 OFFICE/OUTPATIENT VISIT EST Diagnosis: MIGRAINE NOS/NOT INTRCBL[ICD9: 346.90] Diagnosis: SINUSITIS, ACUTE[ICD9: 461.9] María Elena Hicks [place] [facility] CPT-4: 19188 11/09/2011 OFFICE/OUTPATIENT VISIT EST Diagnosis: MIGRAINE NOS/NOT INTRCBL[ICD9: 346.90] Diagnosis: LYMPHADENOPATHY[ICD9: 785.6] [facility] 04114 09/13/2011 OFFICE/OUTPATIENT VISIT EST Diagnosis: MALAISE AND FATIGUE[ICD9: 780.79] Diagnosis: ARTHRALGIA-MULTIPLE SITES[ICD9: 719.49] María Elena ValdesJj IGNACIO [facility] CPT-4: 53394 08/31/2011 OFFICE/OUTPATIENT VISIT EST Diagnosis: SINUSITIS, ACUTE[ICD9: 461.9] María Elena APPIAH [facility] CPT-4: 57219 07/20/2011 OFFICE/OUTPATIENT VISIT EST Diagnosis: HYPERTENSION[ICD9: 401.9] Diagnosis: PAIN, LOWER BACK[ICD9: 724.2] Diagnosis: SPASM OF MUSCLE[ICD9: 728.85] María Elena APPIAH [facility] CPT-4: 93343 07/06/2011 OFFICE/OUTPATIENT VISIT EST Diagnosis: MIGRAINE NOS/NOT INTRCBL[ICD9: 346.90] Diagnosis: HYPERTENSION[ICD9: 401.9] María Elena SEYMOUR [facility] CPT-4: 14464 05/22/2011 OFFICE/OUTPATIENT VISIT EST Diagnosis: SINUSITIS, ACUTE[ICD9: 461.9] Diagnosis: MIGRAINE NOS/NOT INTRCBL[ICD9: 346.90] Diagnosis: Dehydration[ICD9: 276.51] Diagnosis: Vomiting[ICD9: 787.03] María Elena Waltyesimaryjane MARÍA ELENA LucioJj CIRO Bazzi [facility] CPT-4: 18592 05/09/2011 ([id number]) OFFICE/OUTPATIENT VISIT EST María Elena Ortamaryjane MARLIN UJARED SJj WALTNDER [facility] CPT-4: 11868 02/14/2011 ([id number]) OFFICE/OUTPATIENT VISIT EST María Elena Waltyesimaryjane MARLIN UJARED SJj ORENDER [facility] CPT-4: 68691 02/03/2011 ([id number]) OFFICE/OUTPATIENT VISIT EST María Elena ISAAC UJARED SJj [facility] CPT-4: 92907 01/31/2011 ([id number]) OFFICE/OUTPATIENT VISIT EST María Elena ISAAC TANIA SJj WALTNDER [facility] CPT-4: 73858 01/25/2011 ([id number]) OFFICE/OUTPATIENT VISIT EST María Elena ISAAC UJARED [facility] CPT-4: 82769 01/18/2011 ([id number]) OFFICE/OUTPATIENT VISIT EST María Elena MARIN SJj [facility] CPT-4: 42048 11/29/2010 ([id number]) OFFICE/OUTPATIENT VISIT, EST María Elena REED [facility] CPT-4: 38813 10/10/2010 ([id number]) OFFICE/OUTPATIENT VISIT, EST María Elena [facility] CPT-4: 42236 06/07/2010 ([id number]) OFFICE/OUTPATIENT VISIT, EST María Elena [facility] CPT-4: 68322 04/27/2010 ([id number]) OFFICE/OUTPATIENT VISIT, EST María Elena REED [facility] CPT-4: 67745 04/05/2010 ([id number]) OFFICE/OUTPATIENT VISIT, EST María Elena [facility] CPT-4: 68304 03/09/2010 ([id number]) OFFICE/OUTPATIENT VISIT, EST María Elena [facility] CPT-4: 12241 03/03/2010 ([id number]) OFFICE/OUTPATIENT VISIT, EST María Elena REED [facility] CPT-4: 55102 01/17/2010 ([id number]) PREV VISIT, EST, AGE 40-64 María Elena COLEMAN [facility] CPT-4: 66863 12/27/2009 Plan of Care Planned Activity Notes Codes Status Date Visit Diagnosis Plan: Cellulitis of left foot Discussi on: Doxycycline and Prednisone Continue lasix and potassium Elevate legs Low Na diet To ER this weekend if worsens ICD-9 : 682.7 ICD-10 : L03.116 03/04/2020 Patient Education: doxycycline hyclate- [employer] [id number] Completed 03/04/2020 Patient Education: prednisone- [employer] [id number] Completed 03/04/2020 Visit Diagnosis Plan: Lower extremity [...] ICD-10 : S90.821A 02/12/2020 Appointment: Kathleen Zuniga [address] [place] [address] ACUTE ILLNESS 02/12/2020 Visit Diagnosis Plan: Essential [...] E11.65 01/13/2020 Appointment: María Elena Appiah WPtel: [address] [place], [place] [id number] US FOLLOW UP 01/13/2020 Patient Education: lisinopril- [employer] [id number] Completed 01/13/2020 Patient Education: glimepiride- [employer] [id number] Completed 01/13/2020 Appointment: María Elena Appiah WPtel: [id number] US CANCELED 11/26/2019 Visit Diagnosis Plan: Type 2 diabetes mellitus with hy perglycemia Discussion: Januvia 100mg daily Glimepride 2mg po BID Accuchecks BID Call in 2 weeks with BS readings Get formulary book ICD-9 : 250.02 ICD-10 : E11.65 11/20/2019 Appointment: María Elena Appiah WPtel: [phone] [id number] FOLLOW UP 11/20/2019 Patient Education: glimepiride- [employer] [id number] Completed 11/20/2019 Patient Education: Januvia- [employer] C[employer]on [id number] Completed 11/20/2019 Visit Diagnosis Plan: Ingrowing nail [...] ICD-10 : E11.65 10/07/2019 Appointment: Kathleen Zuniga [address] [place], [place] [id number] OFFICE SURGERY 10/07/2019 Visit Diagnosis Plan: Hypertriglyceridemia [...] E11.65 09/30/2019 Appointment: María Elena Appiah WPtel: [address] [place], [place] [phone] [place] CHECK UP 09/30/2019 Patient Education: Premarin- [employer] Coupon [id number] [email or web address] Completed 09/30/2019 Appointment: María Elena Appiah WPtel: [address] [place], [place] [phone] [place] LAB 09/29/2019 Appointment: María Elena Appiah WPtel: [address] [place], [place] [phone] [place] Won't have the new insurance till [...] W06.XXXS 05/28/2019 Appointment: María Elena Appiah WPtel: [address] [place], [place] [phone] [place] FOLLOW UP 05/28/2019 Appointment: María Elena Appiah WPtel: [address] [place], [place] [phone] [place] BP CHECK 05/19/2019 Visit Diagnosis Plan: [...] Z79.890 01/22/2019 Appointment: María Elena Appiah WPtel: [address] [place], [place] [address] [place] FOLLOW UP 01/22/2019 Patient Education: estradiol- [employer] Coupon [id number] [id number] [email or web address] Completed 01/22/2019 Appointment: María Elena Appiah WPtel: [address] [place], [place] [phone] [place] CANCELED 01/20/2019 Appointment: María Elena pApiah WPtel: [address] [place] [address] [place] LM NO SHOW 01/06/2019 Appointment: María Elena Appiah WPtel: [address] [place], [place] [phone] [place] CANCELED 10/17/2018 Appointment: María Elena Appiah WPtel: [address] [place], [place] [phone] [place] BP CHECK 10/09/2018 Visit Diagnosis Plan: [...] I10 09/30/2018 Appointment: María Elena Appiah WPtel: [address] [place] [address] [place] FOLLOW UP 09/30/2018 Visit Diagnosis Plan: [...] F51.01 08/27/2018 Appointment: María Elena Appiah WPtel: [address] [place] [address] ACUTE ILLNESS 08/27/2018 Appointment: María Elena Appiah WPtel: [address] [place] [address] [place] Patient stated she went out to [...] prn. Tyle... 08/09/2018 Appointment: María Elena Appiahtel: [address] [place] [address] [place] ACUTE ILLNESS 08/09/2018 Appointment: María Elena Appiah WPtel: [address] [place] [address] NO SHOW 08/08/2018 Visit Diagnosis Plan: Anxiety [...] B35.4 07/22/2018 Appointment: María Elena Appiah WPtel: [address] [place] [address] ACUTE ILLNESS 07/22/2018 Appointment: María Elena Appiah WPtel: [address] [place] [address] [place] INJECTION 06/19/2018 Patient Education: Patient Medication [...] ICD-10 : L03.031 06/17/2018 Appointment: Kathleen Zuniga [address] [place] [address] ACUTE ILLNESS 06/17/2018 Patient Education: Patient Medication [...] ICD-10 : B02.9 05/16/2018 Appointment: Kathleen Zuniga [address] [place] [address] ACUTE ILLNESS 05/16/2018 Patient Education: Patient Medication [...] ICD-10 : L03.115 03/20/2018 Appointment: Kathleen Zuniga [address] [place], [place] [address] FOLLOW UP 03/20/2018 Patient Education: Patient Medication [...] ICD-10 : L03.115 03/18/2018 Appointment: Kathleen Zuniga [address] [place], [place] [id number] FOLLOW UP 03/18/2018 Patient Education: Patient Medication [...] ICD-10 : L03.115 03/15/2018 Appointment: Kathleen Zuniga [address] [place] [address] ACUTE ILLNESS 03/15/2018 Patient Education: Patient Medication [...] ICD-10 : J01.90 02/11/2018 Appointment: Kathleen Zuniga [address] [place] [address] ACUTE ILLNESS 02/11/2018 Patient Education: Patient Medication Summary Completed 02/11/2018 Appointment: María Elena Appiah WPtel: [phone] [id number] INJECTION 02/01/2018 Patient Education: Patient Medication Summary [...] ICD-10 : M51.16 01/30/2018 Appointment: Kathleen Zuniga [address] [place] [address] ACUTE ILLNESS 01/30/2018 Patient Education: Patient Medication [...] E11.65 12/18/2017 Appointment: María Elena Appiah WPtel: [address] [place] [address] Annual Well Visit 12/18/2017 Patient Education: Patient Medication Summary Completed 12/18/2017 Care Plan: Referral Order SNOMED-CT : [phone] [id number] Pending 12/18/2017 Appointment: María Elena Appiah WPtel: [address] [place] [address] INJECTION 12/10/2017 Patient Education: Patient Medication Summary [...] ICD-10 : L03.031 12/07/2017 Appointment: Kathleen Zuniga [address] [place] [address] ACUTE ILLNESS 12/07/2017 Patient Education: Patient Medication [...] ICD-10 : J01.00 10/08/2017 Appointment: Kathleen Zuniga [address] [place] [address] ACUTE ILLNESS 10/08/2017 Patient Education: Patient Medication Summary Completed 10/08/2017 Appointment: María Elena Appiah WPtel: [phone] [facility] [place] INJECTION 09/21/2017 Patient Education: Patient Medication [...] : 786.09 ICD-10 : R06.83 09/20/2017 [facility] [facility] 09/20/2017 Patient Education: Patient Medication [...] : L60.0 08/29/2017 App[facility]ment: [facility] [facility] 08/29/2017 Patient Education: Patient Medication Summary Completed 08/29/2017 Visit Diagnosis Plan: Actinic keratosis Discussion: Cr yotherapy as above ICD-9 : 702.0 ICD-10 : L57.0 08/01/2017 Appointment: María Elena [facility]el[phone] [facility] [facility] 08/01/2017 Patient Education: Patient Medication Summary Completed 08/01/2017 Appointment: María Elena Appiah WPtel: [address] [place], [place] [phone] PATIENT THOUGHT APPOINTMENT WAS TOMORROW 07/26/17 CALLED 15 MINUTES BEFORE APPT TO SAY SHE DIDN'T HAVE ANYONE TO COVER HER BUSINESS AND WOULD NOT MAKE IT NO SHOW 07/25/2017 Visit Diagnosis Plan: Cellulitis of left toe Discussio n: Clindamycin and notify if worsening or persistis ICD-9 : 681.10 ICD-10 : L03.032 07/19/2017 Appointment: María Elena Appiah WPtel: [address] [place], [place] [phone] MEDICATION REVIEW 07/19/2017 Patient Education: Patient Medication Summary Completed 07/19/2017 Appointment: María Elena Appiah WPtel: [facility] [place] CANCELED 07/04/2017 Visit Diagnosis Plan: Generalized hyperhidrosis Discus ian: CBC, CMP, TSH, free T4 ordered to assess. will review labs. ICD-9 : 780.8 ICD-10 : R61 06/27/2017 Visit Diagnosis Plan: Chronic sinusitis, unspecified D iscussion: Referral sent to dr. albarado in [place] per patient request. patient has been treated multiple times for sinus infections with no recovery. patient was seen by dr sanchez in the past with no interventions. patient has deviated septum which may be affecting her sinuses. 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, including hip Discussion: Shave removal of above lesio n--sent to pathology ICD-9 : 216.7 ICD-10 : D23.72 01/24/2017 Appointment: María Elena Appiah WPtel: [address] [place], [place] [phone] 01/23 confirmed ~ OFFICE SURGERY 01/24/2017 Patient Education: Patient Medication Summary Completed 01/24/2017 Appointment: Loan Sánchez [address] [place] [address] 01/09 rescheduled~sl RESCHEDULED 01/15/2017 Visit Diagnosis Plan: [...] L81.4 12/13/2016 Appointment: María Elena Appiah WPtel: [address] [place], [place] [phone] 12/12 confirmed ~sl MEDICATION REVIEW 12/13/2016 Patient Education: Patient Medication Summary Completed 12/13/2016 Appointment: María Elena Appiah WPtel: [address] [place], [place] [phone] [place] rescheduled for 12/13/16 at 11am RESCHEDULED 0 12/06/2016 Appointment: María Elena Appiah WPtel: [phone] [facility] [place] CANCELED 11/23/2016 Patient Education: Patient Medication [...] F51.01 11/01/2016 Appointment: María Elena Appiah WPtel: [address] [place], [place] [phone] 10/31 lm `sl 11/01 lm`sl MEDICATION REVIEW 017 Patient Education: Patient Medication Summary Completed 11/01/2016 Referral: Canelo Overton WPtel: [phone] [id number] [place] Referral Initiated 10/30/2016 Visit Diagnosis Plan: [...] Z01.419 10/17/2016 Appointment: María Elena Appiah WPtel: [address] [place], [place] [phone] 10/16 confirmed ~sl PAP 10/17/2016 Patient Education: Patient Medication Summary Completed 10/17/2016 Care Plan: MAMMOGRAM SCREENING LOINC : 2 6347-5 Pending 10/17/2016 Visit Diagnosis Plan: Other seasonal allergic rhinitis Discussion: Decadron/Garamycin Nasal [place] Mix Too soon for steroid Retry zyrtec 10mg daily ICD-9 : 477.9 ICD-10 : J30.2 10/10/2016 Appointment: María Elena Appiah WPtel: [address] [place], [place] [phone] FOLLOW UP 10/10/2016 Patient Education: Patient Medication Summary Completed 10/10/2016 Appointment: María Elena Appiah WPtel: [address] [place], [place] [phone] 10/02 reschedule `sl RESCHEDULED 10/02/2016 Visit Plan: See surgery for removal of n ew left arm lesion and right foot lesion Lyrica to use next month for left arm paresthesias Continue current meds Discussed sunscreen/sunblock combo 09/19/2016 Appointment: María Elena Appiah WPtel: [address] [place], [place] [phone] 09/18 confirmed ~sl FOLLOW UP 09/19/2016 Patient Education: Patient Medication Summary Completed 09/19/2016 Patient Education: Patient Medication Summary Completed 09/18/2016 Care Plan: MAMMOGRAM BOTH BREASTS LOINC : 05020-9 Pending 09/18/2016 Visit Plan: Discussed that needs [...] sinuses 08/24/2016 Appointment: María Elena Appiah WPtel: [address] [place], [place] [phone] ACUTE ILLNESS 08/24/2016 Patient Education: Patient Medication Summary Completed 08/24/2016 Patient Education: Patient Medication Summary Completed 08/23/2016 Care Plan: MAMMOGRAM SCREENING LOINC : 2 6347-5 Pending 08/23/2016 Visit Plan: Finish doxycycline Add Breo 100/25 1 p BID for 2 weeks If not improving within next 2 days will get CXR 08/16/2016 Appointment: María Elena Appiah WPtel: [address] [place] [address] ACUTE ILLNESS 08/16/2016 Patient Education: Patient Medication Summary Completed 08/16/2016 Visit Plan: Supportive care. Rest, Fluid s, Tylenol/Motrin prn fever or bodyaches. Notify if worsening symptoms. Doxycyline and Prednisone 08/10/2016 Appointment: María Elena Appiah WPtel: [address] [place] [address] 08/09 lm`sl....confirmed-sp FOLLOW UP 09/2015 Patient Education: Patient Medication Summary Completed 08/10/2016 Visit Plan: Saline nasal flushes prn. Ty lenol/Motrin prn headache. Notify if persists/symptoms worsening. Dexamethasone 8mg IM today May use coricedan and mucinex 08/02/2016 Appointment: María Elena Appiah WPtel: [address] [place] [address] ACUTE ILLNESS 08/02/2016 Patient Education: Patient Medication Summary Completed 08/02/2016 Visit Plan: Cryotherapy as above and lef t forearm lesion removal as above with 5-0 punch biopsy and sent to path Return in 10 days for suture removal 08/01/2016 Appointment: María Elena Appiah WPtel: [address] [place] [address] 07/31 confirmed`~sl OFFICE SURGERY 08/01/2016 Patient Education: Patient Medication Summary Completed 08/01/2016 Visit Plan: Stop clindamycin Check CBC, CMP, ESR now/STAT 07/27/2016 Appointment: María Elena Appiah WPtel: [address] [place] [address] ACUTE ILLNESS 07/27/2016 Patient Education: Patient Medication Summary Completed 07/27/2016 Visit Plan: Update lab and check ABIs to start with Will likely need cardiology evaluation to rule out PVD Clindamycin for 10 days Daily yogurt or probiotic Will return for removal of left arm lesions 07/20/2016 Appointment: María Elena Appiah WPtel: [address] [place] [address] ACUTE ILLNESS 07/20/2016 Patient Education: Patient Medication Summary Completed 07/20/2016 Patient Education: Patient Medication Summary Completed 07/20/2016 Care Plan: MAMMOGRAM BOTH BREASTS LOINC : 66984-9 Pending 07/20/2016 Care Plan: US EXAM CHEST LOINC : 87143-8 Pending 07/20/2016 Visit Plan: Wound culture collected from left great toe Appearance is somewhat staph like Rx as above Wound cleanser and skin care reviewed May need to add oral antibiotic if sores do not heal or continue to reoccur 07/06/2016 Appointment: Loan Sánchez [address] [place] [address] ACUTE ILLNESS 07/06/2016 Patient Education: Patient Medication Summary Completed 07/06/2016 Appointment: María Elena Appiah WPtel: [address] [place] [address] [place] INJECTION 05/25/2016 Patient Education: Patient Medication Summary Completed 05/25/2016 Visit Plan: Saline nasal flushes prn. Ty lenol/Motrin prn headache. Notify if persists/symptoms worsening. Dexamethasone and Rocephin given 04/26/2016 Appointment: María Elena Appiah WPtel: [address] [place] [address] ACUTE ILLNESS 04/26/2016 Patient Education: Patient Medication Summary Completed 04/26/2016 Visit Plan: Check CBC, CMP, TSH, FreeT4, HbA1C, estradiol, lipids in AM 03/02/2016 Appointment: María Elena Appiah WPtel: [address] [place] [address] 03/01 lm~sl ACUTE ILLNESS 03/02/2016 Patient Education: Patient Medication Summary Completed 03/02/2016 Visit Plan: Exam is nearly normal Needs to be taking daily antihistamine Would prefer to use oral steroids instead of shot but patient insist that oral steroids cause horrible headaches for her Will given kenalog IM instead 02/09/2016 Appointment: Loan Sánchez [address] [place] [address] ACUTE ILLNESS 02/09/2016 Patient Education: Patient Medication Summary Completed 02/09/2016 Visit Plan: Culture urine Macrobid DC xa nax Trial of Ativan 1mg q HS 01/24/2016 Appointment: María Elena Appiah WPtel: [address] [place] [address] ACUTE ILLNESS 01/24/2016 Patient Education: Patient Medication Summary Completed 01/24/2016 Visit Plan: No steroid or rocephin injec tion warranted Can have oral prednisone Continue current home regimen Needs to follow up with Dr Sanchez if problems persist 12/23/2015 Appointment: Loan Sánchez [address] [place] [address] ACUTE ILLNESS 12/23/2015 Patient Education: Patient Medication Summary Completed 12/23/2015 Visit Plan: Saline nasal flushes prn. Ty lenol/Motrin prn headache. Notify if persists/symptoms worsening. Kenalog 40mg IM today 12/08/2015 Appointment: María Elena Appiah WPtel: [address] [place] [address] 12/06 confirmed~sl ACUTE ILLNESS 12/08/2015 Patient Education: Patient Medication Summary Completed 12/08/2015 Appointment: María Elena Appiah WPtel: [address] [place] [address] ACUTE ILLNESS 11/18/2015 Patient Education: Patient Medication Summary Completed 10/11/2015 Appointment: María Elena Appiah WPtel: [address] [place] [address] [place] INJECTION 10/07/2015 Patient Education: Patient Medication Summary Completed 10/07/2015 Visit Plan: Check renal arterial doppler s and ECHO Change amlodopine to lotrel 5/20mg q HS Will need stress test as well Check CMP, uric acid, ESR 10/06/2015 Appointment: María Elena Appiah WPtel: [address] [place], [place] [phone] ACUTE ILLNESS 10/06/2015 Patient Education: Patient Medication Summary Completed 10/06/2015 Patient Education: [facility] - [employer]aving [employer] - Amlodipine Besylate - 18-64 - Dynamic Portal ID Completed 10/06/2015 Appointment: María Elena Appiah WPtel: [address] [place] [address] [place] FOLLOW UP 09/22/2015 Visit Plan: Cephalexin 500 mg PO bid Mery ly topical Mupirocin to lesions on left lateral neck and face Follow-up in one week. Sooner if symptoms worsen 09/14/2015 Appointment: June Flores WPtel: [address] [place] [address] ACUTE ILLNESS 09/14/2015 Patient Education: Patient Medication Summary Completed 09/14/2015 Visit Plan: Change bystolic to bedtime d osing and amlodopine to morning dosing Cryotherapy as above to AKs 09/07/2015 Appointment: María Elena Appiah WPtel: [address] [place] [address] 09/06 appointment made and confirmed ~sl FOLLOW UP 09/07/2015 Patient Education: Patient Medication Summary Completed 09/07/2015 Visit Plan: Increase bystolic back to 20 mg daily but will split and take 10mg in AM and 10mg in PM Stress Reducers 08/18/2015 Appointment: María Elena Appiah WPtel: [address] [place] [address] 08/17/15 appt confirmed cn ACUTE ILLNESS 08/18 Patient Education: Patient Medication Summary Completed 08/18/2015 Appointment: María Elena Appiah WPtel: [address] [place] [address] [place] BP CHECK 07/07/2015 Patient Education: Patient Medication Summary Completed 07/07/2015 Appointment: María Elena Appiah WPtel: [address] [place] [address] BP CHECK 06/24/2015 Patient Education: Patient Medication Summary Completed 06/24/2015 Appointment: María Elena Appiah WPtel: [address] [place] [address] BP CHECK 06/21/2015 Patient Education: Patient Medication Summary Completed 06/21/2015 Visit Plan: Lab discussed Continue curre nt meds and lifestyle modification Recheck lab in 6mos 06/16/2015 Appointment: María Elena Appiah WPtel: [address] [place] [address] 06/15 [facility] FOLLOW UP 06/16/2015 Patient Education: Patient Medication Summary Completed 06/16/2015 Patient Education: Patient Medication Summary Completed 06/15/2015 Visit Plan: Increase cymbalta to 60mg q HS Keep clonidine at current dose Recheck 2weeks Change xanax to klonopin 06/02/2015 Appointment: María Elena Appiah WPtel: [address] [place] [address] 06/02 lm FOLLOW UP 06/02/2015 Patient Education: Patient Medication Summary Completed 06/02/2015 Appointment: María Elena Appiah WPtel: [address] [place] [address] ACUTE ILLNESS 05/24/2015 Visit Plan: Increase clonidine to 0.2mg q HS Add cymbalta 30mg q HS Recheck 2weeks Stress Reducers Check fasting lab Discussed sleep study 05/20/2015 Appointment: María Elena Appiah WPtel: [address] [place] [address] ACUTE ILLNESS 05/20/2015 Patient Education: Patient Medication Summary Completed 05/20/2015 Patient Education: [facility] - [employer] - Cymbalta - 18-64 - Dynamic Portal ID Completed 05/20/2015 Appointment: María Elena Appiah WPtel: [address] [place] [address] BP CHECK 05/19/2015 Patient Education: Patient Medication Summary Completed 05/19/2015 Visit Plan: Topical Bactroban alternatin g with topical betamethasone Recheck 2weeks 05/10/2015 Appointment: María Elena Appiah WPtel: [address] [place] [address] 05/07 vm cn...05/07 appt confirmed OFFICE SURGER Y 05/10/2015 Patient Education: Patient Medication Summary Completed 05/10/2015 Referral: Patrick Chandler WPtel: [facility] [address] Referral Initiated 05/04/2015 Visit Plan: Saline nasal flushes prn. Ty lenol/Motrin prn headache. Notify if persists/symptoms worsening. Depomedrol 40mg IM today 03/16/2015 Appointment: María Elena Appiah WPtel: [address] [place] [address] ACUTE ILLNESS 03/16/2015 Patient Education: Patient Medication Summary Completed 03/16/2015 Appointment: María Elena Appiah WPtel: [address] [place] [address] ER Follow UP 03/09/2015 Visit Plan: Cryotherapy to lesions as ab ove 10/27/2014 Appointment: María Elena Appiah WPtel: [address] [place], [place] [phone] OFFICE SURGERY 10/27/2014 Patient Education: Patient Medication Summary Completed 10/27/2014 Appointment: June Flores WPtel: [address] [place] [address] ACUTE ILLNESS 09/11/2014 Patient Education: Patient Medication Summary Completed 09/11/2014 Visit Plan: Lab discussed Lipitor 10mg d aily Coenzyme Q-10 400mg daily Vitamin D3 5000u daily Recheck lipids with LFTs in 3mos then fwup 08/31/2014 Appointment: María Elena Appiah WPtel: [address] [place] [address] 08/28 voicemail FOLLOW UP 08/31/2014 Patient Education: Patient Medication Summary Completed 08/31/2014 Appointment: María Elena Appiah WPtel: [address] [place] [address] [place] LAB 08/27/2014 Appointment: María Elena Appiah WPtel: [address] [place], [place] [phone] [place] LAB 08/27/2014 Patient Education: Patient Medication Summary Completed 08/27/2014 Appointment: María Elena Appiah WPtel: [address] [place] [address] ACUTE ILLNESS 07/23/2014 Appointment: María Elena Appiah WPtel: [address] [place] [address] ACUTE ILLNESS 07/21/2014 Patient Education: Patient Medication Summary Completed 07/21/2014 Visit Plan: Kenalog 40mg IM today Contin ue narendra and singulair Add Flonase 07/15/2014 Appointment: María Elena Appiah WPtel: [address] [place] [address] ACUTE ILLNESS 07/15/2014 Appointment: María Elena Appiah WPtel: [address] [place] [address] ACUTE ILLNESS 07/15/2014 Patient Education: Patient Medication Summary Completed 07/15/2014 Visit Plan: Will do metolazone 2.5mg prn with 6 potassium and see if causes as severe cramping Trial of of seroquel XR 50mg q PM with evening meal and let us know how works 05/18/2014 Appointment: María Elena Appiah WPtel: [address] [place], [place] [address] 05/15 left message FOLLOW UP 05/18/2014 Patient Education: Patient Medication Summary Completed 05/18/2014 Appointment: María Elena Appiah WPtel: [address] [place] [address] LAB 05/14/2014 Patient Education: Patient Medication Summary Completed 05/14/2014 Appointment: María Elena Appiah WPtel: [address] [place] [address] [place] INJECTION 04/22/2014 Visit Plan: Tisha and Miranda today a nd finish abx given from urgent care 04/21/2014 Appointment: María Elena Appiah WPtel: [address] [place] [address] [place] INJECTION 04/21/2014 Patient Education: Patient Medication Summary Completed 04/21/2014 Appointment: June Flores WPtel: [address] [place] [address] ACUTE ILLNESS 03/04/2014 Patient Education: Patient Medication Summary Completed 03/04/2014 Appointment: María Elena Appiah WPtel: [address] [place] [address] [place] INJECTION 02/27/2014 Patient Education: Patient Medication Summary Completed 02/27/2014 Visit Plan: Cryotherapy as above to all lesions Patient wants to try no meds for insomnia for a while and see how goes 01/13/2014 Appointment: María Elena Appiah WPtel: [address] [place] [address] OFFICE SURGERY 01/13/2014 Patient Education: Patient Medication Summary Completed 01/13/2014 Visit Plan: Stop Melatonin Stop Soma Tri al of trazadone 75mg q HS See ENT for possible tubes as has had chronic ETD and serous otitis media with numerous steroids 12/24/2013 Appointment: María Elena Appiah WPtel: [address] [place] [address] ACUTE ILLNESS 12/24/2013 Patient Education: Patient Medication Summary Completed 12/24/2013 Visit Plan: Saline nasal flushes prn. Ty lenol/Motrin prn headache. Notify if persists/symptoms worsening. 11/12/2013 Appointment: María Elena Appiah WPtel: [address] [place] [address] ACUTE ILLNESS 11/12/2013 Patient Education: Patient Medication Summary Completed 11/12/2013 Appointment: María Elena Appiah WPtel: [address] [place] [address] ACUTE ILLNESS 10/21/2013 Patient Education: Patient Medication Summary Completed 10/21/2013 Visit Plan: Sleep hygiene and sleep rout ine Melatonin 10mg q HS Support stockings and observe 09/22/2013 Appointment: María Elena Appiah WPtel: [address] [place] [address] ACUTE ILLNESS 09/22/2013 Patient Education: Patient Medication Summary Completed 09/22/2013 Appointment: June Flores WPtel: [address] [place] [address] ACUTE ILLNESS 08/27/2013 Patient Education: Patient Medication Summary Completed 08/27/2013 Visit Plan: Proceed with CT scan of head /neck Proceed with occipital nerve injections Butrans 20mcg patch weekly until can get into see Dr. Mcdonough for injections 08/04/2013 Appointment: María Elena Appiah WPtel: [address] [place] [address] FOLLOW UP 08/04/2013 Patient Education: Patient Medication Summary Completed 08/04/2013 Visit Plan: OMT done Daily neck stretche s, moist heat Increase Celebrex to 200mg BID Add flexeril 07/23/2013 Appointment: María Elena Appiah WPtel: [address] [place] [address] 07/22 voicemail FOLLOW UP 07/23/2013 Patient Education: Patient Medication Summary Completed 07/23/2013 Appointment: María Elena Appiah WPtel: [address] [place] [address] ACUTE ILLNESS 06/23/2013 Patient Education: Patient Medication Summary Completed 06/23/2013 Appointment: María Elena Appiah WPtel: [address] [place] [address] ACUTE ILLNESS 05/26/2013 Patient Education: Patient Medication Summary Completed 05/26/2013 Visit Plan: Decrease clonidine to 0.1mg TID If BP remains stable consider decreasing amlodopine Prednisone for 5 days BP check in 1mo 04/16/2013 Appointment: María Elena Appiah WPtel: [address] [place] [address] 04/14 pt called and confirmed appt FOLLOW UP 04/16/2013 Patient Education: Patient Medication Summary Completed 04/16/2013 Appointment: María Elena Apipah WPtel: [address] [place] [address] ACUTE ILLNESS 03/05/2013 Patient Education: Patient Medication Summary Completed 03/05/2013 Visit Plan: Pt has MARIA ELENA on with Dr. Mcdonough Continue Butrans patch Refill Hydrocodone early tomorrow 12/23/2012 Appointment: María Elena Appiah WPtel: [address] [place] [address] FOLLOW UP 12/23/2012 Patient Education: Patient Medication Summary Completed 12/23/2012 Appointment: Lashawn Eckert WPtel: [address] [place] [address] ACUTE ILLNESS 12/16/2012 Patient Education: Patient Medication Summary Completed 12/16/2012 Visit Plan: Proceed with updated MRI of LS spine Continue gabapentin and add soma and diclofenac Will likely need to go for another epidural 12/09/2012 Appointment: María Elena Appiah WPtel: [address] [place] [address] ACUTE ILLNESS 12/09/2012 Patient Education: Patient Medication Summary Completed 12/09/2012 Visit Plan: Injection as above Finish me drol dose pack Chiropracter this afternoon 12/04/2012 Appointment: María Elena Appiah WPtel: [address] [place], [place] [phone] ACUTE ILLNESS 12/04/2012 Patient Education: Patient Medication Summary Completed 12/04/2012 Appointment: Mary Tillman WPtel: [address] [place] [address] FOLLOW UP 11/22/2012 Patient Education: Patient Medication Summary Completed 11/22/2012 Appointment: María Elena Appiah WPtel: [address] [place], [place] [phone] ACUTE ILLNESS 11/21/2012 Patient Education: Patient Medication Summary Completed 11/21/2012 Appointment: María Elena Appiah WPtel: [address] [place] [address] BP CHECK 11/07/2012 Patient Education: Patient Medication Summary Completed 11/07/2012 Visit Plan: reports extra clonidine and extra amlodipine and extra alprazalam. extra Ketolorac and promethazine last night. Bystolic 10 mg QAM and will continue all other blood pressure meds. Pt. encouraged to rest and hydrate. Discussed stroke and ME symptoms. Pt. instructed to seek ER eval if symptoms worsen or headache persists. Pt. agrees to ER eval/EMS transport if symptoms worsen. BP re-check. 10/29/2012 Appointment: Lashawn Eckert WPtel: [address] [place] [address] ACUTE ILLNESS 10/29/2012 Patient Education: Patient Medication Summary Completed 10/29/2012 Appointment: María Elena Appiah WPtel: [address] [place], [place] [phone] ACUTE ILLNESS 10/14/2012 Patient Education: Patient Medication Summary Completed 10/14/2012 Appointment: María Elena Appiah WPtel: [address] [place], [place] [phone] UA 09/27/2012 Patient Education: Patient Medication Summary Completed 09/27/2012 Appointment: María Elena Appiah WPtel: [address] [place], [place] [phone] ACUTE ILLNESS 09/25/2012 Patient Education: Patient Medication Summary Completed 09/25/2012 Appointment: María Elena Appiah WPtel: [address] [place], [place] [phone] BP CHECK 09/24/2012 Appointment: María Elena Appiah WPtel: [address] [place], [place] [phone] ACUTE ILLNESS 08/29/2012 Patient Education: Patient Medication Summary Completed 08/29/2012 Visit Plan: Cryotherapy as above See Karlos m for right ear lesion--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 ACUTE ILLNESS 05/06/2012 Patient Education: Patient Medication Summary Completed 05/06/2012 Visit Plan: Pt wants to hold on any furt her sleep medications 04/03/2012 Appointment: María Elena Appiah WPtel: [address] [place], [place] [phone] FOLLOW UP 04/03/2012 Patient Education: Patient Medication Summary Completed 04/03/2012 Appointment: María Elena Appiah WPtel: [address] [place], [place] [phone] [place] FOLLOW UP 03/19/2012 Patient Education: Patient Medication Summary Completed 03/19/2012 Appointment: María Elena Appiah WPtel: [address] [place] [address] BP CHECK 02/22/2012 Patient Education: Patient Medication Summary Completed 02/22/2012 Appointment: María Elena Appiahtel: [address] [place] [address] BP CHECK 02/21/2012 Patient Education: Patient Medication Summary Completed 02/21/2012 Visit Plan: Doxycycline and bactroban fo r foot Supportive care on ankles and knees Add norvasc for BP 02/20/2012 Appointment: María Elena Appiah WPtel: [address] [place] [address] ER Follow UP 02/20/2012 Patient Education: Patient Medication Summary Completed 02/20/2012 Appointment: María Elena Appiah WPtel: [address] [place] [address] ACUTE ILLNESS 01/30/2012 Patient Education: Patient Medication Summary Completed 01/30/2012 Appointment: María Elena Appiahtel: [address] [place] [address] ACUTE ILLNESS 01/24/2012 Patient Education: Patient Medication Summary Completed 01/24/2012 Visit Plan: Daily back stretches, moist heat, Biofreeze prn OMT done 01/10/2012 Appointment: María Elena Appiah WPtel: [address] [place] [address] ACUTE ILLNESS 01/10/2012 Patient Education: Patient Medication Summary Completed 01/10/2012 Appointment: María Elena Appiahtel: [address] [place] [address] [place] FOLLOW UP 12/11/2011 Patient Education: Patient Medication Summary Completed 12/11/2011 Appointment: María Elena Appiah WPtel: [address] [place] [address] ACUTE ILLNESS 11/09/2011 Patient Education: Patient Medication Summary Completed 11/09/2011 Appointment: María Elena Appiahtel: [address] [place], [place] [id number] ACUTE ILLNESS 09/13/2011 Patient Education: Patient Medication Summary Completed 09/13/2011 Visit Plan: Check CBC, TSH, Free T4, CMP , ESR, Vit D, B12 now Start Prednisone today 08/31/2011 Appointment: María Elena Appiah WPtel: [address] [place], [place] [phone] ACUTE ILLNESS 08/31/2011 Patient Education: Patient Medication Summary Completed 08/31/2011 Appointment: María Elena Appiah WPtel: [address] [place], [place] [phone] [place] INJECTION 07/20/2011 Patient Education: Patient Medication Summary Completed 07/20/2011 Visit Plan: Continue current meds Monite r BP Cont stretches from PT 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 07/06/2011 Appointment: María Elena Appiah WPtel: [address] [place] [address] FOLLOW UP 07/06/2011 Patient Education: Patient Medication Summary Completed 07/06/2011 Appointment: María Elena Appiahtel: [address] [place] [address] BP CHECK 06/06/2011 Patient Education: Patient Medication Summary Completed 06/06/2011 Visit Plan: Add Bystolic at 2.5mg QAM Ad d Robaxin 750mg 2 po q HS BP check in 2wks 05/22/2011 Appointment: María Elena Appiah WPtel: [address] [place], [place] [phone] FOLLOW UP 05/22/2011 Patient Education: Patient Medication Summary Completed 05/22/2011 Appointment: María Elena Appiahtel: [address] [place], [place] [phone] ER Follow UP 05/09/2011 Patient Education: Patient Medication Summary Completed 05/09/2011 Appointment: María Elena Appiah WPtel: [address] [place] [address] FOLLOW UP 02/22/2011 Visit Plan: Rx written for Hydrocodone 1 0/325mg #240 See Ortho 02/14/2011 Appointment: María Elena Appiah WPtel: [address] [place] [address] [place] OMT 02/14/2011 Patient Education: Patient Medication [...] lab work. 02/03/2011 Appointment: Lashawn Eckert WPtel: [address] [place] [address] ACUTE ILLNESS 02/03/2011 Patient Education: Patient Medication Summary Completed 02/03/2011 Visit Plan: OMT done Cont daily stretche s 01/31/2011 Appointment: María Elena Appiah WPtel: [address] [place] [address] ACUTE ILLNESS 01/31/2011 Patient Education: Patient Medication Summary Completed 01/31/2011 Visit Plan: Continue pain meds OMT done Proceed with PT No work this summer01/25/2011 Appointment: María Elena Appiah WPtel: [address] [place] [address] ACUTE ILLNESS 01/25/2011 Patient Education: Patient Medication Summary Completed 01/25/2011 Visit Plan: Start PT Long discussion abo ut getting pain meds from only us and can only have max of 4grams of tylenol per day Change to Hydrocodone 10/325mg 1- 2 po TID prn pain--#180 called to [facility] 01/18/2011 Appointment: María Elena Appiahtel: [address] [place] [address] FOLLOW UP 01/18/2011 Patient Education: Patient Medication Summary Completed 01/18/2011 Visit Plan: Daily back stretches, moist heat, Biofreeze prn 11/29/2010 Appointment: María Elena Appiahtel: [address] [place] [address] ER Follow UP 11/29/2010 Patient Education: Patient Medication Summary Completed 11/29/2010 Visit Plan: Saline nasal flushes prn. Ty lenol/Motrin prn headache. Notify if persists/symptoms worsening. Finish augmentin Add Medrol Dose Pack 10/10/2010 Appointment: María Elena Appiahtel: [address] [place] [address] ACUTE ILLNESS 10/10/2010 Patient Education: Patient Medication Summary Completed 10/10/2010 Visit Plan: Cryotherapy x3 to multiple l esions on both forearms 07/19/2010 Appointment: María Elena Appiahtel: [address] [place] [address] OFFICE SURGERY 07/19/2010 Patient Education: Patient Medication Summary Completed 07/19/2010 Appointment: María Elena Appiahtel: [address] [place] [address] BP CHECK 07/06/2010 Patient Education: Patient Medication Summary Completed 07/06/2010 Appointment: María Elena Appiahtel: [address] [place] [address] BP CHECK 06/30/2010 Patient Education: Patient Medication Summary Completed 06/30/2010 Appointment: María Elena Appiahtel: [address] [place] [address] BP CHECK 06/20/2010 Patient Education: Patient Medication Summary Completed 06/20/2010 Visit Plan: Change Diovan to Exforge 160 /5mg QD OMT done to thoracics BP check in 2wks 06/07/2010 Appointment: María Elena Appiahtel: [address] [place] [address] FOLLOW UP 06/07/2010 Patient Education: Patient Medication Summary Completed 06/07/2010 Appointment: María Elena Appiah WPtel: [address] [place] [address] BP CHECK 06/03/2010 Patient Education: Patient Medication Summary Completed 06/03/2010 Appointment: María Elena Appiahtel: [address] [place] [address] BP CHECK 06/01/2010 Patient Education: Patient Medication Summary Completed 06/01/2010 Visit Plan: Irritated skin tags to left neck x2 excised at base with scissors and base cauterized 05/30/2010 Appointment: María Elena Appiah WPtel: [address] [place] [address] OFFICE SURGERY 05/30/2010 Patient Education: Patient Medication Summary Completed 05/30/2010 Visit Plan: Saline nasal flushes prn. Ty lenol/Motrin prn headache. Notify if persists/symptoms worsening. Restart Nasonex Has allergy testing set for May 25 04/27/2010 Appointment: María Elena Appiah WPtel: [address] [place] [address] ACUTE ILLNESS 04/27/2010 Patient Education: Patient Medication Summary Completed 04/27/2010 Visit Plan: Saline nasal flushes prn. Ty lenol/Motrin prn headache. Notify if persists/symptoms worsening. Omnaris BID plus injections 04/05/2010 Appointment: María Elena Appiah WPtel: [address] [place] [address] ACUTE ILLNESS 04/05/2010 Patient Education: Patient Medication Summary Completed 04/05/2010 Visit Plan: Saline nasal flushes prn. Ty lenol/Motrin prn headache. Notify if persists/symptoms worsening. 03/09/2010 Appointment: María Elena Appiah WPtel: [address] [place] [address] ACUTE ILLNESS 03/09/2010 Patient Education: Patient Medication Summary Completed 03/09/2010 Visit Plan: Cont Clonidine as is Cont Pr emarin Fwup with surgery as scheduled 03/03/2010 Appointment: María Elena Appiah WPtel: [address] [place] [address] FOLLOW UP 03/03/2010 Patient Education: Patient Medication Summary Completed 03/03/2010 Visit Plan: Check Pelvic US now Discusse tacho Dand C vs Hysterectomy 01/17/2010 Appointment: María Elena Appiah WPtel: [address] [place] [address] ACUTE ILLNESS 01/17/2010 Patient Education: Patient Medication Summary Completed 01/17/2010 Visit Plan: Check fasting lab and schedu le Mammogram 2gm Na Diet Trial of Ambien 10mg qhs Fwup pending lab results 12/27/2009 Appointment: María Elena Appiah WPtel: [address] [place] [address] ESTABLISHED PATIENT 12/27/2009 Patient Education: Patient Medication Summary Completed 12/27/2009 Referral: Canelo Overton WPtel: [address] [id number] [place] Referral Initiated Referral: Philipp Flores WPtel: [address] [id number] [place] Referral Appointment Requested Instructions Comment . [...] to rest and hydrate. Discussed stroke and ME symptoms. Pt. instructed to seek ER eval [...]
--- OUTSIDE RECORDS SUMMARY | 2020-03-13 04:02 | XMS REPORT | CCD ---
Author Author Gale Appiah D.O. 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 Name Role Phone María Elena Appiah D.O., PP Unavailable CCM Unavailable Summary Purpose Interface Exchange Insurance Providers Payer name Policy type / Coverage type Covered democrat ID Effective Begin Date Effective End Date [facility] Commercial Insurance [id number] Unknown Family History Family History data not found Social History Social History Element Codes Description Effective Dates Tobacco history SNOMED CT: [id number] Never smoker 05/22/2011 Allergies, Adverse Reactions, Alerts [...] Instructions doxycycline hyclate 100 mg capsule RxNorm: 1281560 1 Cap johanna(s) Oral two times a day 03/04/2020 03/18/2020 Active prednisone 20 mg tablet RxNorm: 186728 1 Tablet(s) Oral two sawyer es a day 03/04/2020 03/09/2020 Active cyclobenzaprine 10 mg tablet RxNorm: 622679 TAKE ONE TA BLET BY MOUTH THREE TIMES A DAY NEEDED FOR MUSCLE SPASMS 02/27/2020 No Stop Date Active hydrocodone 10 mg-acetaminophen 325 mg tablet RxNorm: 160038 1-2 Tablet(s) Oral three times a day as needed for pain 02/27/2020 02/27/2020 Inactive Premarin 1.25 mg tablet RxNorm: 929620 1 Tablet(s) Oral QD 02/16/20 20 05/15/2020 Active celecoxib 200 mg capsule RxNorm: 184436 1 Capsule(s) Or al two times a day as needed for pain 02/16/2020 05/15/2020 Active Farxiga 10 mg tablet RxNorm: 5741562 1 Tablet(s) Oral QAM 02/13/2020 05/13/2020 Active Farxiga 10 mg tablet RxNorm: 6485344 1 Tablet(s) Oral QAM 02/13/2020 02/12/2020 Inactive Keflex 500 mg capsule RxNorm: 904573 1 Capsule(s) Oral two time s a day 02/12/2020 02/19/2020 Inactive Lipitor 10 mg tablet RxNorm: 495888 TAKE ONE TABLET BY MOUTH DAILY 01/23/2020 No Stop Date Active Januvia 100 mg tablet RxNorm: 146544 TAKE ONE TABLET BY MOUTH DAILY 01/22/2020 No Stop Date Active gabapentin 300 mg capsule RxNorm: 895866 TAKE ONE CAPSU LE BY MOUTH EVERY NIGHT AT BEDTIME 01/22/2020 No Stop Date Active allopurinol 300 mg tablet RxNorm: 588799 TAKE ONE TABLET BY LOPEZ TH DAILY 01/22/2020 No Stop Date Active Klor-Con 8 mEq tablet,extended release RxNorm: 754620 T FARRUKH ONE TABLET BY MOUTH TWICE A DAY 01/22/2020 No Stop Date Active doxepin 25 mg capsule RxNorm: 3307251 TAKE ONE CAPSULE B Y MOUTH EVERY NIGHT AT BEDTIME NEEDED FOR SLEEP 01/22/2020 No Stop Date Active glimepiride 4 mg tablet RxNorm: 626434 1 Tablet(s) Oral two times a day replaces 2mg dose 01/13/2020 04/12/2020 Active lisinopril 40 mg tablet RxNorm: 206115 1 Tablet(s) Oral QD repl aces 20mg dose 01/13/2020 04/12/2020 Active hydrocodone 10 mg-acetaminophen 325 mg tablet RxNorm: 140970 1-2 Tablet(s) Oral three times a day as needed for pain 01/12/2020 02/26/2020 Inactive cyclobenzaprine 10 mg tablet RxNorm: 850601 TAKE ONE TA BLET BY MOUTH THREE TIMES A DAY NEEDED FOR MUSCLE SPASMS 01/05/2020 02/26/2020 Inactive triamterene 75 mg-hydrochlorothiazide 50 mg tablet RxNorm: 3 46777 TAKE ONE TABLET BY MOUTH DAILY 12/29/2019 No Stop Date Active Klor-Con 8 mEq tablet,extended release RxNorm: 993864 T FARRUKH ONE TABLET BY MOUTH TWICE A DAY 12/19/2019 01/21/2020 Inactive allopurinol 300 mg tablet RxNorm: 741076 TAKE ONE TABLET BY LOPEZ TH DAILY 12/19/2019 01/21/2020 Inactive glimepiride 2 mg tablet RxNorm: 359680 TAKE ONE TABLET BY MOUTH TWICE A DAY 12/19/2019 01/12/2020 Inactive hydrocodone 10 mg-acetaminophen 325 mg tablet RxNorm: 227049 1-2 Tablet(s) Oral three times a day as needed for pain 12/10/2019 01/11/2020 Inactive Januvia 100 mg tablet RxNorm: 489770 1 Tablet(s) Oral QD 11/20/2019 0 11/20/2019 Inactive glimepiride 2 mg tablet RxNorm: 684914 1 Tablet(s) Oral two sawyer es a day 11/20/2019 12/18/2019 Inactive cyclobenzaprine 10 mg tablet RxNorm: 182759 TAKE ONE TA BLET BY MOUTH THREE TIMES A DAY NEEDED FOR MUSCLE SPASMS 11/17/2019 01/04/2020 Inactive doxepin 25 mg capsule RxNorm: 9802174 TAKE ONE CAPSULE B Y MOUTH EVERY NIGHT AT BEDTIME NEEDED FOR SLEEP 11/16/2019 01/21/2020 Inactive Klor-Con 8 mEq tablet,extended release RxNorm: 185821 T FARRUKH ONE TABLET BY MOUTH TWICE A DAY 11/16/2019 12/18/2019 Inactive hydrocodone 10 mg-acetaminophen 325 mg tablet RxNorm: 096419 1-2 Tablet(s) Oral three times a day as needed for pain 11/10/2019 12/09/2019 Inactive cyclobenzaprine 10 mg tablet RxNorm: 804689 TAKE ONE TA BLET BY MOUTH THREE TIMES A DAY NEEDED FOR MUSCLE SPASMS 10/23/2019 11/16/2019 Inactive duloxetine 60 mg capsule,delayed release RxNorm: 897058 1 Capsu le(s) Oral QD 10/17/2019 04/13/2020 Active Singulair 10 mg tablet RxNorm: 138979 1 Tablet(s) Oral QD 10/17/2019 04/14/2020 Active metoprolol tartrate 100 mg tablet RxNorm: 874146 1 Tabl et(s) Oral two times a day 10/17/2019 04/13/2020 Active clonidine HCl 0.1 mg tablet RxNorm: 811240 1 Tablet(s) Oral fou r times a day 10/17/2019 04/13/2020 Active celecoxib 200 mg capsule RxNorm: 229744 1 Capsule(s) Or al two times a day as needed for pain 10/17/2019 02/15/2020 Inactive lisinopril 20 mg tablet RxNorm: 216523 1 Tablet(s) Oral QD 10/17/19 20 01/12/2020 Inactive gabapentin 300 mg capsule RxNorm: 938576 1 Capsule(s) O ral every night at bedtime 10/17/2019 01/15/2020 Inactive Klor-Con 8 mEq tablet,extended release RxNorm: 741386 1 Tablet(s) Oral two times a day 10/17/2019 11/15/2019 Inactive Januvia 100 mg tablet RxNorm: 534424 1 Tablet(s) Oral QD 10/17/2019 0 01/12/2020 Inactive Lipitor 10 mg tablet RxNorm: 568914 1 Tablet(s) Oral QD 10/17/2019 Inactive Steglatro 15 mg tablet RxNorm: 6792311 1 Tablet(s) Oral QD 10/17/19 20 02/12/2020 Inactive Glyxambi 25 mg-5 mg tablet RxNorm: 9521185 1 Tablet(s) Oral QD 01/202010/16/2019 Inactive Patient will bring in copay discount card as well Glyxambi 25 mg-5 mg tablet RxNorm: 2639699 1 Tablet(s) Oral QD 01/202010/14/2019 Inactive Patient will bring in copay discount card as well Keflex 500 mg capsule RxNorm: 856455 1 Capsule(s) Oral two time s a day 10/07/2019 10/14/2019 Inactive Premarin 1.25 mg tablet RxNorm: 283316 1 Tablet(s) Oral QD 09/30/19 20 02/15/2020 Inactive hydrocodone 10 mg-acetaminophen 325 mg tablet RxNorm: 925757 1-2 Tablet(s) Oral three times a day as needed for pain 09/30/2019 09/30/2019 Inactive baclofen 10 mg tablet RxNorm: 052025 TAKE ONE TABLET BY MOUTH THREE TIMES A DAY NEEDED 09/19/2019 No Stop Date Active gabapentin 300 mg capsule RxNorm: 667230 TAKE ONE CAPSU LE BY MOUTH EVERY NIGHT AT BEDTIME 09/19/2019 10/16/2019 Inactive Klor-Con 8 mEq tablet,extended release RxNorm: 705987 T FARRUKH ONE TABLET BY MOUTH TWICE A DAY 1 Tablet(s) Oral two times a day 09/19/2019 10/16/2019 Renu ctive hydrocodone 10 mg-acetaminophen 325 mg tablet RxNorm: 682215 1-2 Tablet(s) Oral three times a day as needed for pain 09/19/2019 09/29/2019 Inactive duloxetine 60 mg capsule,delayed release RxNorm: 571466 TAKE ONE CAPSULE BY MOUTH DAILY 09/11/2019 10/16/2019 Inactive Lipitor 10 mg tablet RxNorm: 514576 TAKE ONE TABLET BY MOUTH AT BEDTIME 09/11/2019 10/16/2019 Inactive lisinopril 20 mg tablet RxNorm: 376257 TAKE ONE TABLET BY MOUTH DAILY .... THIS REPLACE 10MG TABLETS 09/11/2019 10/16/2019 Inactive triamterene 75 mg-hydrochlorothiazide 50 mg tablet RxNorm: 3 47188 TAKE ONE TABLET BY MOUTH DAILY 09/11/2019 12/28/2019 Inactive allopurinol 300 mg tablet RxNorm: 962613 TAKE ONE TABLET BY LOPEZ TH DAILY 09/11/2019 12/18/2019 Inactive celecoxib 200 mg capsule RxNorm: 954801 TAKE ONE CAPSUL E BY MOUTH TWICE A DAY NEEDED FOR PAIN 09/11/2019 10/16/2019 Inactive clonidine HCl 0.1 mg tablet RxNorm: 115373 TAKE ONE TAB LET BY MOUTH FOUR TIMES A DAY 09/11/2019 10/16/2019 Inactive doxepin 25 mg capsule RxNorm: 6793919 1 Capsule(s) Oral every night at bedtime as needed for sleep 08/21/2019 11/15/2019 Inactive hydrocodone 10 mg-acetaminophen 325 mg tablet RxNorm: 543770 1-2 Tablet(s) PO TID 08/12/2019 09/29/2019 Inactive as needed for pa in - Previous quantity #240, will start dosing for #180 in April [address] Ignacio. Medrol (Dustin) 4 mg tablets in a dose pack RxNorm: 581946 Tablet(s) Oral As Directed 07/21/2019 09/29/2019 Inactive Premarin 1.25 mg tablet RxNorm: 049521 1 Tablet(s) Oral QD 07/02/2009/29/2019 Inactive hydrocodone 10 mg-acetaminophen 325 mg tablet RxNorm: 604040 1-2 Tablet(s) PO TID 07/01/2019 08/11/2019 Inactive as needed for pa in - Previous quantity #240, will start dosing for #180 in April [address] Ignacio. gabapentin 300 mg capsule RxNorm: 182163 1 Capsule(s) PO QHS 201809/18/2019 Inactive celecoxib 200 mg capsule RxNorm: 241130 1 Capsule(s) Or al two times a day as needed for pain 06/27/2019 06/27/2019 Inactive doxepin 25 mg capsule RxNorm: 0923967 TAKE ONE CAPSULE B Y MOUTH EVERY NIGHT AT BEDTIME NEEDED FOR SLEEP 06/24/2019 08/20/2019 Inactive Singulair 10 mg tablet RxNorm: 542421 TAKE ONE TABLET BY MOUTH JOSÉ Y 06/24/2019 10/16/2019 Inactive furosemide 40 mg tablet RxNorm: 172805 TAKE ONE TABLET BY MOUTH EVERY MORNING NEEDED FOR EDEMA . TAKE WITH POTASSIUM 06/24/2019 01/12/2020 Inactive lisinopril 20 mg tablet RxNorm: 158160 TAKE ONE TABLET BY MOUTH DAILY .... THIS REPLACE 10MG TABLETS 06/24/2019 09/10/2019 Inactive nystatin-triamcinolone 100,000 unit/g-0.1 % topical cream Rx Norm: 6026370 1 Application Topical two times a day 06/12/2019 06/19/2019 Inactive apply BID for 1 week nystatin-triamcinolone 100,000 unit/g-0.1 % topical cream Rx Norm: 4529380 1 Application Topical two times a day 06/12/2019 06/11/2019 Inactive apply BID for 1 week hydrocodone 10 mg-acetaminophen 325 mg tablet RxNorm: 176190 1-2 Tablet(s) PO QID as needed for pain MUST LAST 30 DAYS 05/28/2019 06/26/2019 Inactiv e (Response to an electronic controlled substance refill request - RxReferenceNumber: [id number]) baclofen 20 mg tablet RxNorm: 602091 1 Tablet(s) PO TID as needed for muscle spasm 05/19/2019 05/27/2019 Inactive gabapentin 300 mg capsule RxNorm: 584313 1 Capsule(s) PO QHS 201805/27/2019 Inactive lisinopril 20 mg tablet RxNorm: 154243 1 Tablet(s) PO Q D TAKE ONE TABLET BY MOUTH DAILY, REPLACES 10 MG DOSE 05/19/2019 06/23/2019 Inactive doxepin 25 mg capsule RxNorm: 5612365 TAKE ONE CAPSULE B Y MOUTH EVERY NIGHT AT BEDTIME NEEDED FOR SLEEP 05/16/2019 06/14/2019 Inactive lisinopril 20 mg tablet RxNorm: 670077 TAKE ONE TABLET BY MOUTH DAILY, REPLACES 10 MG DOSE 05/16/2019 05/18/2019 Inactive Singulair 10 mg tablet RxNorm: 015905 TAKE ONE TABLET BY MOUTH JOSÉ Y 05/16/2019 06/14/2019 Inactive gabapentin 300 mg capsule RxNorm: 865005 1 Capsule(s) PO QHS 201805/04/2019 Inactive estropipate 1.5 mg tablet RxNorm: 068445 1 Tablet(s) PO QD 05/05/2005/27/2019 Inactive estropipate 1.5 mg tablet RxNorm: 152225 1 Tablet(s) PO QD 05/05/20 19 05/04/2019 Inactive gabapentin 300 mg capsule RxNorm: 538093 1 Capsule(s) PO QHS 201805/18/2019 Inactive hydrocodone 10 mg-acetaminophen 325 mg tablet RxNorm: 136043 1-2 Tablet(s) PO QID as needed for pain MUST LAST 30 DAYS 04/25/2019 05/24/2019 Inactiv e (Response to an electronic controlled substance refill request - RxReferenceNumber: [id number]) cyclobenzaprine 10 mg tablet RxNorm: 090028 TAKE ONE TA BLET BY MOUTH THREE TIMES A DAY NEEDED FOR MUSCLE SPASMS 04/24/2019 05/18/2019 Inactive metoprolol tartrate 100 mg tablet RxNorm: 954156 TAKE O NE TABLET BY MOUTH TWICE A DAY 04/24/2019 10/16/2019 Inactive Lyrica 75 mg capsule RxNorm: 654812 1 Capsule(s) PO QHS 03/25/2019 Inactive duloxetine 60 mg capsule,delayed release RxNorm: 473303 TAKE ONE CAPSULE BY MOUTH DAILY 03/21/2019 05/19/2019 Inactive triamterene 75 mg-hydrochlorothiazide 50 mg tablet RxNorm: 3 57315 TAKE ONE TABLET BY MOUTH DAILY 03/21/2019 05/19/2019 Inactive Klor-Con 8 mEq tablet,extended release RxNorm: 992341 T FARRUKH ONE TABLET BY MOUTH TWICE A DAY 03/21/2019 09/18/2019 Inactive Lipitor 10 mg tablet RxNorm: 180535 TAKE ONE TABLET BY MOUTH AT BEDTIME 03/21/2019 09/10/2019 Inactive clonidine HCl 0.1 mg tablet RxNorm: 158055 TAKE ONE TAB LET BY MOUTH FOUR TIMES A DAY 03/21/2019 05/19/2019 Inactive allopurinol 300 mg tablet RxNorm: 159693 TAKE ONE TABLET BY LOPEZ TH DAILY 03/21/2019 05/19/2019 Inactive hydrocodone 10 mg-acetaminophen 325 mg tablet RxNorm: 494785 1-2 Tablet(s) PO QID as needed for pain MUST LAST 30 DAYS 02/28/2019 03/29/2019 Inactiv e (Response to an electronic controlled substance refill request - RxReferenceNumber: [id number]) furosemide 40 mg tablet RxNorm: 027818 TAKE ONE TABLET BY MOUTH EVERY MORNING NEEDED FOR EDEMA . TAKE WITH POTASSIUM 02/21/2019 03/22/2019 Inactive cyclobenzaprine 10 mg tablet RxNorm: 209841 TAKE ONE TA BLET BY MOUTH THREE TIMES A DAY NEEDED FOR MUSCLE SPASMS 02/21/2019 04/21/2019 Inactive lisinopril 20 mg tablet RxNorm: 209790 TAKE ONE TABLET BY MOUTH DAILY, REPLACES 10 MG DOSE 02/21/2019 05/15/2019 Inactive doxepin 25 mg capsule RxNorm: 0742508 TAKE ONE CAPSULE B Y MOUTH EVERY NIGHT AT BEDTIME NEEDED FOR SLEEP 02/21/2019 05/15/2019 Inactive nystatin 100,000 unit/gram topical cream RxNorm: 266812 APPLY TO AFFECTED AREA(S) TWO TIMES A DAY 02/21/2019 03/22/2019 Inactive estradiol 1 mg tablet RxNorm: 473247 2 Tablet(s) PO QD replaces premarin 01/22/2019 05/04/2019 Inactive lisinopril 20 mg tablet RxNorm: 056953 TAKE ONE TABLET BY MOUTH DAILY, REPLACES 10 MG DOSE 01/20/2019 02/18/2019 Inactive cyclobenzaprine 10 mg tablet RxNorm: 851628 TAKE ONE TA BLET BY MOUTH THREE TIMES A DAY NEEDED FOR MUSCLE SPASMS 01/20/2019 02/18/2019 Inactive metoprolol tartrate 100 mg tablet RxNorm: 839788 TAKE O NE TABLET BY MOUTH TWICE A DAY 01/20/2019 02/18/2019 Inactive cyclobenzaprine 10 mg tablet RxNorm: 913247 TAKE ONE TA BLET BY MOUTH THREE TIMES A DAY NEEDED FOR MUSCLE SPASMS 12/19/2018 01/17/2019 Inactive lisinopril 20 mg tablet RxNorm: 451515 TAKE ONE TABLET BY MOUTH DAILY, REPLACES 10 MG DOSE 12/19/2018 01/17/2019 Inactive duloxetine 60 mg capsule,delayed release RxNorm: 112950 TAKE ONE CAPSULE BY MOUTH DAILY 12/19/2018 01/17/2019 Inactive Lipitor 10 mg tablet RxNorm: 919393 TAKE ONE TABLET BY MOUTH AT BEDTIME 12/19/2018 01/17/2019 Inactive cyclobenzaprine 10 mg tablet RxNorm: 929222 1 Tablet(s) PO TID as needed for muscle spasm 11/19/2018 12/18/2018 Inactive Singulair 10 mg tablet RxNorm: 901470 1 Tablet(s) PO QD 11/19/2018 Inactive lisinopril 20 mg tablet RxNorm: 566439 TAKE ONE TABLET BY MOUTH DAILY, REPLACES 10 MG DOSE 11/15/2018 12/18/2018 Inactive hydrocodone 10 mg-acetaminophen 325 mg tablet RxNorm: 267299 1-2 Tablet(s) PO QID as needed for pain MUST LAST 30 DAYS 11/13/2018 12/12/2018 Inactiv e (Response to an electronic controlled substance refill request - RxReferenceNumber: [id number]) nystatin 100,000 unit/gram topical cream RxNorm: 945135 APPLY TO AFFECTED AREA(S) TWO TIMES A DAY 10/23/2018 11/06/2018 Inactive lisinopril 20 mg tablet RxNorm: 414280 1 Tablet(s) PO QD replac es 10mg dose 10/18/2018 11/14/2018 Inactive hydrocodone 10 mg-acetaminophen 325 mg tablet RxNorm: 440829 1-2 Tablet(s) QID as needed for pain MUST LAST 30 DAYS 10/08/2018 11/06/2018 Inactive (Response to an electronic controlled substance refill request - [facility]: [id number]) lisinopril 10 mg tablet RxNorm: 943345 1 Tablet(s) PO QD 10/03/2018 0 01/21/2019 Inactive Celebrex 200 mg capsule RxNorm: 864529 TAKE ONE CAPSULE BY MOUT H TWICE A DAY 09/30/2018 05/04/2019 Inactive cyclobenzaprine 10 mg tablet RxNorm: 781843 TAKE ONE TA BLET BY MOUTH THREE TIMES A DAY NEEDED FOR MUSCLE SPASMS 09/30/2018 11/18/2018 Inactive doxepin 25 mg capsule RxNorm: 4733782 TAKE ONE CAPSULE B Y MOUTH EVERY NIGHT AT BEDTIME NEEDED 09/05/2018 10/16/2018 Inactive omeprazole 40 mg capsule,delayed release RxNorm: 101165 TAKE ONE CAPSULE BY MOUTH DAILY 09/05/2018 01/21/2019 Inactive furosemide 40 mg tablet RxNorm: 033424 TAKE ONE TABLET BY MOUTH EVERY MORNING NEEDED FOR EDEMA . TAKE WITH POTASSIUM 09/05/2018 11/03/2018 Inactive phentermine 37.5 mg tablet RxNorm: 106311 1 Tablet(s) PO QAM 201701/21/2019 Inactive doxepin 25 mg capsule RxNorm: 7550600 1 Capsule(s) PO QH S as needed for sleep TAKE ONE CAPSULE BY MOUTH EVERY NIGHT AT BEDTIME NEEDED 08/27/2018 09/04/2018 Inactive Keflex 500 mg capsule RxNorm: 175960 1 Capsule(s) PO TID 08/09/2018 1 10/19/2017 Inactive Diflucan 100 mg tablet RxNorm: 308661 1 Tablet(s) PO QD 08/09/2018 Inactive Premarin 1.25 mg tablet RxNorm: 684039 2 Tablet(s) PO QD 08/09/2018 0 05/04/2019 Inactive Zofran ODT 4 mg disintegrating tablet RxNorm: 744780 1 Tablet(s) PO Q4H as needed for nausea 08/09/2018 01/21/2019 Inactive metoprolol tartrate 100 mg tablet RxNorm: 958539 TAKE O NE TABLET BY MOUTH TWICE A DAY 2018 10/04/2018 Inactive doxepin 25 mg capsule RxNorm: 1499000 TAKE ONE CAPSULE B Y MOUTH EVERY NIGHT AT BEDTIME NEEDED 2018 08/26/2018 Inactive cyclobenzaprine 10 mg tablet RxNorm: 997127 TAKE ONE TA BLET BY MOUTH THREE TIMES A DAY NEEDED FOR MUSCLE SPASMS 2018 09/29/2018 Inactive hydrocodone 10 mg-acetaminophen 325 mg tablet RxNorm: 715734 1-2 Tablet(s) QID as needed for pain MUST LAST 30 DAYS 07/29/2018 08/27/2018 Inactive (Response to an electronic controlled substance refill request - RxReferenceNumber: [id number]) nystatin 100,000 unit/gram topical powder RxNorm: 486351 Applic ation TOP BID 07/22/2018 08/04/2018 Inactive doxepin 25 mg capsule RxNorm: 0311484 1 Capsule(s) PO QHS as needed 07/22/2018 08/05/2018 Inactive triamterene 75 mg-hydrochlorothiazide 50 mg tablet RxNorm: 3 35538 TAKE ONE TABLET BY MOUTH DAILY 07/05/2018 10/02/2018 Inactive duloxetine 60 mg capsule,delayed release RxNorm: 109538 TAKE ONE CAPSULE BY MOUTH DAILY 07/05/2018 09/02/2018 Inactive Klor-Con 8 mEq tablet,extended release RxNorm: 428571 T FARRUKH ONE TABLET BY MOUTH TWICE A DAY 07/05/2018 10/02/2018 Inactive Lipitor 10 mg tablet RxNorm: 401778 TAKE ONE TABLET BY MOUTH AT BEDTIME 07/05/2018 09/02/2018 Inactive allopurinol 300 mg tablet RxNorm: 090634 TAKE ONE TABLET BY LOPEZ TH DAILY 07/05/2018 10/02/2018 Inactive clonidine HCl 0.1 mg tablet RxNorm: 905546 TAKE ONE TAB LET BY MOUTH FOUR TIMES A DAY 07/05/2018 10/02/2018 Inactive hydrocodone 10 mg-acetaminophen 325 mg tablet RxNorm: 606005 1-2 Tablet(s) QID as needed for pain MUST LAST 30 DAYS 06/28/2018 07/27/2018 Inactive (Response to an electronic controlled substance refill request - RxReferenceNumber: [id number]) MediHoney (calcium alginate-honey) 4" X 5" bandage RxNorm: 1 Application TOP QD 06/17/2018 06/26/2018 Inactive honey-hydrocolloid dressing 4" X 5" RxNorm: 1 Application TOP QD 06/17/2018 07/16/2018 Inactive furosemide 40 mg tablet RxNorm: 814264 TAKE ONE TABLET BY MOUTH EVERY MORNING NEEDED FOR EDEMA . TAKE WITH POTASSIUM 06/10/2018 07/09/2018 Inactive This is a refill request. hydrocodone 10 mg-acetaminophen 325 mg tablet RxNorm: 698748 1-2 Tablet(s) QID as needed for pain MUST LAST 30 DAYS 05/30/2018 06/27/2018 Inactive (Response to an electronic controlled substance refill request - RxReferenceNumber: [id number]) acyclovir 800 mg tablet RxNorm: 130602 1 Tablet(s) PO 5x day 201705/22/2018 Inactive Premarin 1.25 mg tablet RxNorm: 170455 1-2 Tablet(s) PO QD 05/15/20 18 07/13/2018 Inactive cyclobenzaprine 10 mg tablet RxNorm: 750565 1 Tablet(s) PO TID as needed for muscle spasm 05/09/2018 05/08/2018 Inactive Medrol (Dustin) 4 mg tablets in a dose pack RxNorm: 105315 Tablet(s) PO As Directed 05/02/2018 06/16/2018 Inactive hydrocodone 10 mg-acetaminophen 325 mg tablet RxNorm: 889791 1-2 Tablet(s) QID as needed for pain MUST LAST 30 DAYS 04/30/2018 05/29/2018 Inactive (Response to an electronic controlled substance refill request - RxReferenceNumber: [id number]) duloxetine 60 mg capsule,delayed release RxNorm: 435672 TAKE ONE CAPSULE BY MOUTH DAILY 04/16/2018 05/15/2018 Inactive Celebrex 200 mg capsule RxNorm: 389723 TAKE ONE CAPSULE BY MOUT H TWICE A DAY 04/16/2018 06/14/2018 Inactive Singulair 10 mg tablet RxNorm: 776902 TAKE ONE TABLET BY MOUTH JOSÉ Y 04/16/2018 11/19/2018 Inactive Lipitor 10 mg tablet RxNorm: 325575 TAKE ONE TABLET BY MOUTH AT BEDTIME 04/16/2018 05/15/2018 Inactive hydrocodone 10 mg-acetaminophen 325 mg tablet RxNorm: 965624 1-2 Tablet(s) QID as needed for pain MUST LAST 30 DAYS 03/29/2018 04/27/2018 Inactive (Response to an electronic controlled substance refill request - RxReferenceNumber: [id number]) cyclobenzaprine 10 mg tablet RxNorm: 756258 1 Tablet(s) PO TID as needed for muscle spasm 03/18/2018 05/09/2018 Inactive omeprazole 40 mg capsule,delayed release RxNorm: 850120 1 Capsu le(s) PO QD 02/26/2018 08/24/2018 Inactive hydrocodone 10 mg-acetaminophen 325 mg tablet RxNorm: 220965 1-2 Tablet(s) QID as needed for pain MUST LAST 30 DAYS 02/26/2018 03/27/2018 Inactive (Response to an electronic controlled substance refill request - RxReferenceNumber: [id number]) metoprolol tartrate 100 mg tablet RxNorm: 445401 1 Tablet(s) PO BID 02/18/2018 08/05/2018 Inactive Lyrica 75 mg capsule RxNorm: 399057 1 Capsule(s) PO QHS 01/30/2018 Inactive phentermine 37.5 mg tablet RxNorm: 812735 1 Tablet(s) PO QAM 201706/16/2018 Inactive hydrocodone 10 mg-acetaminophen 325 mg tablet RxNorm: 220807 1-2 Tablet(s) QID as needed for pain MUST LAST 30 DAYS 01/29/2018 02/25/2018 Inactive (Response to an electronic controlled substance refill request - RxReferenceNumber: [id number]) Klor-Con 8 mEq tablet,extended release RxNorm: 520927 1 Tablet( s) PO BID 01/14/2018 07/04/2018 Inactive allopurinol 300 mg tablet RxNorm: 122434 1 Tablet(s) PO QD 01/15/2007/04/2018 Inactive Lipitor 10 mg tablet RxNorm: 364454 1 Tablet(s) PO QHS 01/14/201812/2017 Inactive triamterene 75 mg-hydrochlorothiazide 50 mg tablet RxNorm: 3 66866 1 Tablet(s) PO QD 01/14/2018 07/04/2018 Inactive hydrocodone 10 mg-acetaminophen 325 mg tablet RxNorm: 166856 1-2 Tablet(s) QID as needed for pain MUST LAST 30 DAYS 12/27/2017 01/25/2018 Inactive (Response to an electronic controlled substance refill request - RxReferenceNumber: [id number]) Onglyza 5 mg tablet RxNorm: 651973 1 Tablet(s) PO QD 12/18/201701/29 Inactive metformin 500 mg tablet RxNorm: 130196 1 Tablet(s) PO BID 12/11/2017 12/10/2017 Inactive metformin 500 mg tablet RxNorm: 231775 1 Tablet(s) PO BID 12/11/2017 12/17/2017 Inactive furosemide 40 mg tablet RxNorm: 828211 1 Tablet(s) PO Q AM prn edema--take with potassium 12/11/2017 06/08/2018 Inactive cyclobenzaprine 10 mg tablet RxNorm: 674348 1 Tablet(s) PO TID as needed for muscle spasm 12/11/2017 03/18/2018 Inactive hydrocodone 10 mg-acetaminophen 325 mg tablet RxNorm: 447109 1-2 Tablet(s) QID as needed for pain MUST LAST 30 DAYS 10/23/2017 11/21/2017 Inactive (Response to an electronic controlled substance refill request - RxReferenceNumber: [id number]) Lipitor 10 mg tablet RxNorm: 777362 1 Tablet(s) PO QHS 10/16/201703/2018 Inactive cyclobenzaprine 10 mg tablet RxNorm: 065286 1 Tablet(s) PO TID as needed for muscle spasm 10/09/2017 12/10/2017 Inactive hydroxyzine HCl 25 mg tablet RxNorm: 024094 1 Tablet(s) PO BID as needed for anxiety 09/20/2017 01/29/2018 Inactive Effexor XR 75 mg capsule,extended release RxNorm: 846277 1 Caps ule(s) PO QD 09/20/2017 01/29/2018 Inactive metoprolol tartrate 100 mg tablet RxNorm: 462863 1 Tablet(s) PO BID 08/20/2017 02/18/2018 Inactive baclofen 20 mg tablet RxNorm: 422046 1 Tablet(s) PO TID as needed for muscle spasm 08/20/2017 01/21/2019 Inactive clonidine HCl 0.1 mg tablet RxNorm: 377551 1 Tablet(s) PO QID 08/2005/16/2018 Inactive Seroquel 25 mg tablet RxNorm: 364781 1 Tablet(s) PO QHS 08/17/2017 Inactive Seroquel 25 mg tablet RxNorm: 795862 1 Tablet(s) PO QHS 08/17/2017 Inactive Diflucan 100 mg tablet RxNorm: 139272 TAKE ONE TABLET BY MOUTH JOSÉ Y 07/25/2017 08/07/2017 Inactive hydrocodone 10 mg-acetaminophen 325 mg tablet RxNorm: 453124 1-2 Tablet(s) QID as needed for pain MUST LAST 30 DAYS 07/19/2017 08/17/2017 Inactive (Response to an electronic controlled substance refill request - RxReferenceNumber: [id number]) clindamycin 300 mg capsule RxNorm: 505560 1 Capsule(s) PO TID 07/1907/28/2017 Inactive clotrimazole-betamethasone 1 %-0.05 % topical cream RxNorm: 108769 Application TOP BID to elbow rash 07/19/2017 06/16/2018 Inactive Singulair 10 mg tablet RxNorm: 987725 Tablet(s) TAKE ONE TABLET BY MOUTH DAILY 07/18/2017 04/13/2018 Inactive triamterene 75 mg-hydrochlorothiazide 50 mg tablet RxNorm: 3 57766 1 Tablet(s) PO QD 07/18/2017 01/14/2018 Inactive Celebrex 200 mg capsule RxNorm: 747771 Capsule(s) TAKE ONE CAPSULE BY MOUTH TWICE A DAY 07/18/2017 10/15/2017 Inactive hydrocodone 10 mg-acetaminophen 325 mg tablet RxNorm: 654980 1-2 Tablet(s) QID as needed for pain MUST LAST 30 DAYS 06/19/2017 07/18/2017 Inactive (Response to an electronic controlled substance refill request - RxReferenceNumber: [id number]) hydrocodone 10 mg-acetaminophen 325 mg tablet RxNorm: 115864 1-2 Tablet(s) QID as needed for pain MUST LAST 30 DAYS 06/19/2017 06/18/2017 Inactive (Response to an electronic controlled substance refill request - RxReferenceNumber: [id number]) baclofen 20 mg tablet RxNorm: 241162 1 Tablet(s) PO TID as needed for muscle spasm 06/18/2017 08/20/2017 Inactive Medrol (Dustin) 4 mg tablets in a dose pack RxNorm: 113557 Tablet(s) PO As Directed 06/05/2017 07/18/2017 Inactive omeprazole 40 mg capsule,delayed release RxNorm: 200595 1 Capsu le(s) PO QD 04/20/2017 10/16/2017 Inactive Premarin 1.25 mg tablet RxNorm: 115650 1-2 Tablet(s) PO QD 04/11/20 17 05/15/2018 Inactive duloxetine 60 mg capsule,delayed release RxNorm: 704969 1 Capsu le(s) PO QD 04/11/2017 09/19/2017 Inactive furosemide 40 mg tablet RxNorm: 798641 1 Tablet(s) PO Q AM prn edema--take with potassium 04/11/2017 12/11/2017 Inactive Klor-Con 8 mEq tablet,extended release RxNorm: 975674 1 Tablet( s) PO BID 04/11/2017 01/14/2018 Inactive Lipitor 10 mg tablet RxNorm: 686338 1 Tablet(s) PO QHS 04/11/201702/2018 Inactive amlodipine 5 mg-benazepril 20 mg capsule RxNorm: 351095 1 Capsu le(s) PO QD 04/11/2017 01/29/2018 Inactive allopurinol 300 mg tablet RxNorm: 377452 1 Tablet(s) PO QD 04/11/20 17 01/14/2018 Inactive clonidine HCl 0.1 mg tablet RxNorm: 538658 1 Tablet(s) PO QID 04/0508/19/2017 Inactive baclofen 20 mg tablet RxNorm: 530544 1 Tablet(s) PO TID as needed for muscle spasm 04/02/2017 06/18/2017 Inactive Premarin 1.25 mg tablet RxNorm: 972079 1-2 Tablet(s) PO QD 03/20/20 17 04/10/2017 Inactive hydrocodone 10 mg-acetaminophen 325 mg tablet RxNorm: 081964 1-2 Tablet(s) QID as needed for pain MUST LAST 30 DAYS 03/14/2017 01/21/2019 Inactive (Response to an electronic controlled substance refill request - RxReferenceNumber: [id number]) metoprolol tartrate 100 mg tablet RxNorm: 379615 1 Tablet(s) PO BID 02/12/2017 08/20/2017 Inactive hydrocodone 10 mg-acetaminophen 325 mg tablet RxNorm: 677461 1-2 Tablet(s) QID as needed for pain MUST LAST 30 DAYS 02/08/2017 03/09/2017 Inactive (Response to an electronic controlled substance refill request - RxReferenceNumber: [id number]) metoprolol tartrate 100 mg tablet RxNorm: 831096 TAKE O NE TABLET BY MOUTH TWICE A DAY 01/11/2017 02/12/2017 Inactive metoprolol tartrate 100 mg tablet RxNorm: 724304 1 Tablet(s) PO BID 12/18/2016 12/17/2016 Inactive metoprolol tartrate 100 mg tablet RxNorm: 449336 1 Tablet(s) PO BID 12/18/2016 01/10/2017 Inactive furosemide 40 mg tablet RxNorm: 234025 1 Tablet(s) PO Q AM prn edema--take with potassium 12/13/2016 02/10/2017 Inactive amitriptyline 100 mg tablet RxNorm: 023735 1 Tablet(s) PO QHS 11/2812/12/2016 Inactive baclofen 20 mg tablet RxNorm: 153574 1 Tablet(s) PO TID as needed for muscle spasm 11/14/2016 04/01/2017 Inactive triamterene 75 mg-hydrochlorothiazide 50 mg tablet RxNorm: 3 50639 1 Tablet(s) PO QD 11/14/2016 11/13/2016 Inactive metolazone 2.5 mg tablet RxNorm: 579586 TAKE ONE TABLET BY MOUTH DAILY NEEDED FOR EDEMA 11/14/2016 12/12/2016 Inactive triamterene 75 mg-hydrochlorothiazide 50 mg tablet RxNorm: 3 17136 1 Tablet(s) PO QD 11/14/2016 07/18/2017 Inactive amitriptyline 50 mg tablet RxNorm: 276170 TAKE ONE TABL ET BY MOUTH AT BEDTIME NEEDED FOR SLEEP 11/14/2016 11/27/2016 Inactive Cymbalta 60 mg capsule,delayed release RxNorm: 643069 1 Capsule (s) PO QHS 11/14/2016 12/12/2016 Inactive clonidine HCl 0.1 mg tablet RxNorm: 194283 1 Tablet(s) PO QID 11/1304/04/2017 Inactive amitriptyline 50 mg tablet RxNorm: 039287 1 Tablet(s) P O QHS as needed for sleep 11/01/2016 11/27/2016 Inactive duloxetine 60 mg capsule,delayed release RxNorm: 015696 TAKE ONE CAPSULE BY MOUTH DAILY 10/20/2016 01/17/2017 Inactive allopurinol 300 mg tablet RxNorm: 813525 TAKE ONE TABLET BY LOPEZ TH DAILY 10/20/2016 01/16/2017 Inactive Lyrica 75 mg capsule RxNorm: 713638 TAKE ONE CAPSULE BY MOUTH EVERY NIGHT AT BEDTIME 10/20/2016 12/10/2016 Inactive Klor-Con 8 mEq tablet,extended release RxNorm: 047715 T FARRUKH ONE TABLET BY MOUTH TWICE A DAY 10/20/2016 01/17/2017 Inactive Celebrex 200 mg capsule RxNorm: 751840 TAKE ONE CAPSULE BY MOUT H TWICE A DAY 10/20/2016 07/18/2017 Inactive Bystolic 10 mg tablet RxNorm: 068825 TAKE ONE TABLET BY MOUTH EVERY NIGHT AT BEDTIME 10/20/2016 12/17/2016 Inactive amlodipine 5 mg-benazepril 20 mg capsule RxNorm: 502777 TAKE ONE CAPSULE BY MOUTH EVERY NIGHT AT BEDTIME -- TO REPLACE AMLODOPINE 10/20/20162016 Inactive Lipitor 10 mg tablet RxNorm: 664941 TAKE ONE TABLET BY MOUTH EVERY NIGHT AT BEDTIME 10/20/2016 01/17/2017 Inactive alprazolam 0.5 mg tablet RxNorm: 739739 3 Tablet(s) PO QHS as needed for sleep/anxiety 09/20/2016 10/31/2016 Inactive Tamiflu 75 mg capsule RxNorm: 346745 1 Capsule(s) PO QD 09/19/2016 Inactive Lyrica 75 mg capsule RxNorm: 123312 1 Capsule(s) PO QHS 09/19/2016 Inactive prednisone 20 mg tablet RxNorm: 715857 1 Tablet(s) PO QD 08/10/2016 1 10/17/2015 Inactive doxycycline hyclate 100 mg capsule RxNorm: 3705681 1 Capsule(s) PO BID 08/10/2016 08/19/2016 Inactive Medrol (Dustin) 4 mg tablets in a dose pack RxNorm: 153471 Tablet(s) PO As Directed 07/31/2016 08/22/2016 Inactive Singulair 10 mg tablet RxNorm: 637642 TAKE ONE TABLET BY MOUTH JOSÉ Y 07/27/2016 07/18/2017 Inactive hydrocodone 10 mg-acetaminophen 325 mg tablet RxNorm: 643768 1-2 Tablet(s) QID as needed for pain MUST LAST 30 DAYS 07/26/2016 08/24/2016 Inactive (Response to an electronic controlled substance refill request - RxReferenceNumber: [id number]) alprazolam 0.5 mg tablet RxNorm: 059602 3 Tablet(s) PO QHS as needed for anxiety or sleep 07/26/2016 09/20/2016 Inactive clindamycin 300 mg capsule RxNorm: 131422 1 Capsule(s) PO TID 07/2007/29/2016 Inactive Diflucan 100 mg tablet RxNorm: 091899 1 Tablet(s) PO QD 07/20/2016 Inactive Levaquin 500 mg tablet RxNorm: 319210 1 Tablet(s) PO QD 07/17/2016 Inactive Levaquin 500 mg tablet RxNorm: 320943 1 Tablet(s) PO QD 07/10/2016 Inactive Levaquin 500 mg tablet RxNorm: 238226 1 Tablet(s) PO QD 07/10/2016 Inactive mupirocin 2 % topical ointment RxNorm: 862701 TOP Apply topically to affected areas twice daily 07/06/2016 09/18/2016 Inactive Singulair 10 mg tablet RxNorm: 291742 TAKE ONE TABLET BY MOUTH JOSÉ Y 06/21/2016 01/21/2019 Inactive alprazolam 0.5 mg tablet RxNorm: 043101 TAKE THREE TABL ETS BY MOUTH AT BEDTIME NEEDED FOR SLEEP OR STRESS 05/22/2016 06/20/2016 Inactive triamterene 75 mg-hydrochlorothiazide 50 mg tablet RxNorm: 3 75180 1 Tablet(s) PO QD 04/26/2016 01/12/2020 Inactive Premarin 1.25 mg tablet RxNorm: 859159 1-2 Tablet(s) PO QD 04/26/20 16 03/20/2017 Inactive Klor-Con 8 mEq tablet,extended release RxNorm: 608990 1 Tablet( s) PO BID 04/26/2016 10/19/2016 Inactive Celebrex 200 mg capsule RxNorm: 146023 1 Capsule(s) PO BID TAKE ONE CAPSULE BY MOUTH EVERY DAY 04/26/2016 10/19/2016 Inactive Lipitor 10 mg tablet RxNorm: 256711 1 Tablet(s) PO QHS 04/26/201605/2017 Inactive allopurinol 300 mg tablet RxNorm: 645273 1 Tablet(s) PO QD TAKE ONE TABLET BY MOUTH EVERY DAY 04/26/2016 10/19/2016 Inactive amlodipine 5 mg-benazepril 20 mg capsule RxNorm: 896291 1 Capsule(s) PO QHS replaces amlodopine 04/26/2016 10/19/2016 Inactive duloxetine 60 mg capsule,delayed release RxNorm: 534007 1 Capsu le(s) PO QD 04/26/2016 10/19/2016 Inactive Bystolic 10 mg tablet RxNorm: 800794 1 Tablet(s) PO QHS 04/26/2016 Inactive Singulair 10 mg tablet RxNorm: 184907 1 Tablet(s) PO QD TAKE ONE TABLET BY MOUTH DAILY 04/26/2016 06/20/2016 Inactive clonidine HCl 0.1 mg tablet RxNorm: 455691 1 Tablet(s) PO QID 04/2610/22/2016 Inactive hydrocodone 10 mg-acetaminophen 325 mg tablet RxNorm: 408921 1-2 Tablet(s) QID as needed for pain TAKE ONE TO TWO TABLETS BY MOUTH FOUR TIMES A DAY . MUST LAST 30 DAYS 03/31/2016 04/29/2016 Inactive (Response to an electronic controlled substance refill request - RxReferenceNumber: [id number]) Klor-Con 8 mEq tablet,extended release RxNorm: 441585 T FARRUKH ONE TABLET BY MOUTH TWICE A DAY 03/24/2016 09/29/2019 Inactive prednisone 20 mg tablet RxNorm: 359227 1 Tablet(s) PO QD 03/09/2016 0 03/08/2016 Inactive prednisone 20 mg tablet RxNorm: 883922 1 Tablet(s) PO QD 03/09/2016 0 03/13/2016 Inactive alprazolam 0.5 mg tablet RxNorm: 100523 3 Tablet(s) PO QHS as needed for sleep/stress 03/02/2016 01/21/2019 Inactive mupirocin 2 % topical ointment RxNorm: 454645 TOP twice daily to affected areas of face and neck 02/21/2016 04/25/2016 Inactive clonidine HCl 0.1 mg tablet RxNorm: 689404 TAKE ONE TAB LET BY MOUTH FOUR TIMES A DAY 02/15/2016 09/29/2019 Inactive clonidine HCl 0.1 mg tablet RxNorm: 062390 1 Tablet(s) PO QID 02/1404/25/2016 Inactive Premarin 1.25 mg tablet RxNorm: 283043 1-2 Tablet(s) PO QD 02/15/20 16 03/15/2016 Inactive Klor-Con 8 mEq tablet,extended release RxNorm: 023334 T FARRUKH ONE TABLET BY MOUTH TWICE A DAY 02/15/2016 03/15/2016 Inactive potassium chloride ER 20 mEq tablet,extended release(part/cr yst) RxNorm: 735198 2 Tablet(s) PO BID 02/15/2016 03/15/2016 Inactive Macrobid 100 mg capsule RxNorm: 958096 1 Capsule(s) PO BID 01/24/20 16 01/30/2016 Inactive prednisone 20 mg tablet RxNorm: 816397 Take 3tabs PO QD x 2 days, then 2 tabs PO QD x 2 days, then 1 tab PO QD x 2 days, then 1/2 tab PO QDy x 2 days 12/23/2015 04/25/2016 Inactive Klor-Con 8 mEq tablet,extended release RxNorm: 137341 T FARRUKH ONE TABLET BY MOUTH TWICE A DAY 12/20/2015 02/14/2016 Inactive alprazolam 1 mg tablet RxNorm: 831582 1 1/2 Tablet(s) PO QHS 201501/23/2016 Inactive nystatin 100,000 unit/gram topical cream RxNorm: 502114 APPLY TO AFFECTED AREA(S) TWO TIMES A DAY 11/30/2015 12/14/2015 Inactive Singulair 10 mg tablet RxNorm: 205010 TAKE ONE TABLET BY MOUTH JOSÉ Y 11/18/2015 04/25/2016 Inactive allopurinol 300 mg tablet RxNorm: 245889 1 Tablet(s) PO QD TAKE ONE TABLET BY MOUTH EVERY DAY 10/26/2015 04/22/2016 Inactive Singulair 10 mg tablet RxNorm: 880541 TAKE ONE TABLET BY MOUTH JOSÉ Y 10/26/2015 11/17/2015 Inactive duloxetine 60 mg capsule,delayed release RxNorm: 697803 1 Capsu le(s) PO QD 10/26/2015 04/22/2016 Inactive triamterene 75 mg-hydrochlorothiazide 50 mg tablet RxNorm: 3 84082 1 Tablet(s) PO QD 10/26/2015 11/14/2016 Inactive potassium chloride ER 20 mEq tablet,extended release(part/cr yst) RxNorm: 026277 2 Tablet(s) PO BID 10/26/2015 02/14/2016 Inactive Lipitor 10 mg tablet RxNorm: 412950 1 Tablet(s) PO QHS 10/26/2015 Inactive amlodipine 5 mg-benazepril 20 mg capsule RxNorm: 175373 1 Capsule(s) PO QHS replaces amlodopine 10/26/2015 04/22/2016 Inactive Bystolic 10 mg tablet RxNorm: 779392 1 Tablet(s) PO QHS 10/26/2015 Inactive amlodipine 5 mg-benazepril 20 mg capsule RxNorm: 053510 1 Capsule(s) PO QHS replaces amlodopine 10/06/2015 10/25/2015 Inactive amlodipine 5 mg tablet RxNorm: 629474 1 Tablet(s) PO QHS 09/30/2015 0 04/25/2016 Inactive metolazone 2.5 mg tablet RxNorm: 226682 TAKE ONE TABLET BY MOUTH DAILY NEEDED FOR EDEMA 09/30/2015 01/21/2019 Inactive duloxetine 60 mg capsule,delayed release RxNorm: 069129 1 Capsu le(s) PO QD 09/30/2015 10/25/2015 Inactive cephalexin 500 mg capsule RxNorm: 117682 1 Capsule(s) PO BID 201509/23/2015 Inactive mupirocin 2 % topical ointment RxNorm: 995302 TOP twice daily to affected areas of face and neck 09/14/2015 02/20/2016 Inactive baclofen 20 mg tablet RxNorm: 875267 1 Tablet(s) PO TID as needed for muscle spasm 09/01/2015 11/14/2016 Inactive clonidine HCl 0.1 mg tablet RxNorm: 227702 1 Tablet(s) PO QID 09/0102/14/2016 Inactive alprazolam 1 mg tablet RxNorm: 702778 1 1/2 Tablet(s) PO QHS 201409/09/2015 Inactive baclofen 20 mg tablet RxNorm: 967138 1 Tablet(s) PO TID as needed for muscle spasm 07/23/2015 09/01/2015 Inactive omeprazole 40 mg capsule,delayed release RxNorm: 486817 1 Capsu le(s) PO QD 07/23/2015 04/25/2016 Inactive alprazolam 1 mg tablet RxNorm: 865816 1 1/2 Tablet(s) PO QHS 201408/10/2015 Inactive Bystolic 10 mg tablet RxNorm: 031991 1 Tablet(s) PO BID 06/24/2015 Inactive allopurinol 300 mg tablet RxNorm: 446231 1 Tablet(s) PO QD TAKE ONE TABLET BY MOUTH EVERY DAY 06/23/2015 10/20/2015 Inactive alprazolam 1 mg tablet RxNorm: 120133 1 1/2 Tablet(s) PO QHS 201407/06/2015 Inactive clonidine HCl 0.1 mg tablet RxNorm: 409719 1 Tablet(s) PO QID 06/0209/01/2015 Inactive clonidine HCl 0.1 mg tablet RxNorm: 592002 1 Tablet(s) PO QID 06/0206/01/2015 Inactive Cymbalta 60 mg capsule,delayed release RxNorm: 331811 1 Capsule (s) PO QHS 06/02/2015 08/30/2015 Inactive Cymbalta 60 mg capsule,delayed release RxNorm: 818813 1 Capsule (s) PO QHS 06/02/2015 06/01/2015 Inactive clonidine HCl 0.1 mg tablet RxNorm: 326975 1 Tablet(s) PO TID 05/3106/01/2015 Inactive replaces 0.2mg dose metolazone 2.5 mg tablet RxNorm: 665371 TAKE ONE TABLET BY MOUTH DAILY NEEDED FOR EDEMA 05/21/2015 06/19/2015 Inactive Singulair 10 mg tablet RxNorm: 932237 TAKE ONE TABLET BY MOUTH JOSÉ Y 05/21/2015 10/17/2015 Inactive Cymbalta 30 mg capsule,delayed release RxNorm: 211542 1 Capsule (s) PO QHS 05/20/2015 11/14/2016 Inactive betamethasone valerate 0.1 % topical cream RxNorm: 657898 Appli cation TOP BID 05/10/2015 04/25/2016 Inactive Bactroban 2 % topical ointment RxNorm: 106230 Application TOP BID 0 05/10/2015 06/20/2015 Inactive baclofen 20 mg tablet RxNorm: 743960 1 Tablet(s) PO TID as needed 0 04/26/2015 07/23/2015 Inactive Lipitor 10 mg tablet RxNorm: 008929 1 Tablet(s) PO QHS 04/26/201508/2016 Inactive clonidine HCl 0.1 mg tablet RxNorm: 468481 1 Tablet(s) PO TID 04/2605/30/2015 Inactive replaces 0.2mg dose Klor-Con 8 mEq tablet,extended release RxNorm: 689950 1 Tablet( s) PO BID 04/26/2015 04/25/2016 Inactive metolazone 2.5 mg tablet RxNorm: 668200 1 Tablet(s) PO QD as ne eded for edema 04/26/2015 04/25/2015 Inactive triamterene 75 mg-hydrochlorothiazide 50 mg tablet RxNorm: 3 16098 1 Tablet(s) PO QD 04/26/2015 10/22/2015 Inactive Premarin 1.25 mg tablet RxNorm: 654789 1-2 Tablet(s) PO QD 04/26/20 15 10/22/2015 Inactive Bystolic 10 mg tablet RxNorm: 590540 1 Tablet(s) PO QAM TAKE ONE TABLET BY MOUTH EVERY MORNING 04/23/2015 06/23/2015 Inactive clonidine HCl 0.1 mg tablet RxNorm: 973427 1 Tablet(s) PO TID 03/2304/25/2015 Inactive replaces 0.2mg dose nystatin 100,000 unit/gram topical cream RxNorm: 476989 Applica tion TOP BID 03/23/2015 06/20/2015 Inactive baclofen 20 mg tablet RxNorm: 775446 1 Tablet(s) PO TID as needed 0 03/23/2015 04/25/2015 Inactive Premarin 1.25 mg tablet RxNorm: 274125 1-2 Tablet(s) PO QD 03/23/20 15 04/25/2015 Inactive Klor-Con 8 mEq tablet,extended release RxNorm: 930375 1 Tablet( s) PO BID 03/23/2015 04/25/2015 Inactive cefdinir 300 mg capsule RxNorm: 018164 2 Capsule(s) PO QD 03/16/2015 03/25/2015 Inactive baclofen 20 mg tablet RxNorm: 788562 1 Tablet(s) PO TID as needed 0 03/02/2015 03/22/2015 Inactive allopurinol 300 mg tablet RxNorm: 390734 1 Tablet(s) PO QD TAKE ONE TABLET BY MOUTH EVERY DAY 02/22/2015 05/22/2015 Inactive Klor-Con M20 mEq tablet,extended release RxNorm: 611179 2 Tablet(s) PO BID to use with lasix 02/22/2015 06/20/2015 Inactive clonidine HCl 0.1 mg tablet RxNorm: 216862 1 Tablet(s) PO TID 02/1903/22/2015 Inactive replaces 0.2mg dose Lipitor 10 mg tablet RxNorm: 998911 1 Tablet(s) PO QHS 01/20/201506/2015 Inactive Lipitor 10 mg tablet RxNorm: 819462 1 Tablet(s) PO QHS 01/20/2015 Inactive Singulair 10 mg tablet RxNorm: 806883 1 Tablet(s) PO QD TAKE ONE TABLET BY MOUTH EVERY DAY 11/20/2014 05/18/2015 Inactive Lipitor 10 mg tablet RxNorm: 647468 1 Tablet(s) PO QHS 11/20/201408/2015 Inactive allopurinol 300 mg tablet RxNorm: 668875 1 Tablet(s) PO QD TAKE ONE TABLET BY MOUTH EVERY DAY 11/20/2014 02/16/2015 Inactive Bystolic 10 mg tablet RxNorm: 535560 1 Tablet(s) PO QAM TAKE ONE TABLET BY MOUTH EVERY MORNING 11/20/2014 04/22/2015 Inactive Klor-Con 8 mEq tablet,extended release RxNorm: 028646 1 Tablet( s) PO BID 11/20/2014 02/17/2015 Inactive baclofen 20 mg tablet RxNorm: 378605 1 Tablet(s) PO TID as needed 0 11/20/2014 01/21/2019 Inactive baclofen 20 mg tablet RxNorm: 663224 1 Tablet(s) PO TID as needed 0 10/27/2014 11/19/2014 Inactive baclofen 20 mg tablet RxNorm: 773929 1 Tablet(s) PO TID as needed 0 10/26/2014 03/01/2015 Inactive allopurinol 300 mg tablet RxNorm: 239223 1 Tablet(s) PO QD TAKE ONE TABLET BY MOUTH EVERY DAY 10/26/2014 11/20/2014 Inactive Bystolic 10 mg tablet RxNorm: 092534 1 Tablet(s) PO QAM TAKE ONE TABLET BY MOUTH EVERY MORNING 10/26/2014 11/20/2014 Inactive clonidine HCl 0.1 mg tablet RxNorm: 960937 1 Tablet(s) PO TID 09/2805/27/2019 Inactive replaces 0.2mg dose clonidine HCl 0.1 mg tablet RxNorm: 531714 1 Tablet(s) PO TID 09/2802/18/2015 Inactive replaces 0.2mg dose baclofen 20 mg tablet RxNorm: 260528 1 Tablet(s) PO TID as needed 1 11/01/2013 08/30/2014 Inactive Lipitor 10 mg tablet RxNorm: 139121 1 Tablet(s) PO QHS 08/31/2014 Inactive baclofen 20 mg tablet RxNorm: 374399 1 Tablet(s) PO TID as needed 1 11/01/2013 10/26/2014 Inactive triamterene 75 mg-hydrochlorothiazide 50 mg tablet RxNorm: 3 58121 1 Tablet(s) PO QD 08/31/2014 02/26/2015 Inactive Klor-Con 8 mEq tablet,extended release RxNorm: 351654 1 Tablet( s) PO BID 08/31/2014 11/20/2014 Inactive baclofen 20 mg tablet RxNorm: 081530 1 Tablet(s) PO TID as needed 1 09/30/2013 10/25/2014 Inactive baclofen 20 mg tablet RxNorm: 876305 1 Tablet(s) PO TID as needed 1 09/30/2013 08/31/2014 Inactive omeprazole 40 mg capsule,delayed release RxNorm: 557626 1 Capsu le(s) PO QD 07/21/2014 07/23/2015 Inactive Flonase 50 mcg/actuation nasal spray,suspension RxNorm: 8963 23 1 [place] NASAL BID 07/15/2014 04/09/2017 Inactive hydrocodone 10 mg-acetaminophen 325 mg tablet RxNorm: 981117 1-2 Tablet(s) QID as needed for pain TAKE ONE TO TWO TABLETS BY MOUTH FOUR TIMES A DAY . MUST LAST 30 DAYS 06/30/2014 07/27/2014 Inactive (Response to an electronic controlled substance refill request - RxReferenceNumber: [id number]) baclofen 20 mg tablet RxNorm: 223518 1 Tablet(s) PO TID as needed 1 07/31/2014 Inactive Singulair 10 mg tablet RxNorm: 920828 1 Tablet(s) PO QD TAKE ONE TABLET BY MOUTH EVERY DAY 05/25/2014 11/20/2014 Inactive Bystolic 10 mg tablet RxNorm: 929907 TAKE ONE TABLET BY MOUTH E VERY MORNING 05/25/2014 09/21/2014 Inactive allopurinol 300 mg tablet RxNorm: 872217 1 Tablet(s) PO QD TAKE ONE TABLET BY MOUTH EVERY DAY 05/25/2014 10/21/2014 Inactive baclofen 20 mg tablet RxNorm: 858169 1 Tablet(s) PO TID as needed 0 05/25/2014 06/29/2014 Inactive allopurinol 300 mg tablet RxNorm: 217204 TAKE ONE TABLET BY LOPEZ TH EVERY DAY 05/25/2014 09/21/2014 Inactive Singulair 10 mg tablet RxNorm: 339344 1 Tablet(s) PO QD TAKE ONE TABLET BY MOUTH EVERY DAY 05/25/2014 05/24/2014 Inactive Bystolic 10 mg tablet RxNorm: 857895 1 Tablet(s) PO QAM TAKE ONE TABLET BY MOUTH EVERY MORNING 05/25/2014 10/21/2014 Inactive metolazone 2.5 mg tablet RxNorm: 825771 1 Tablet(s) PO QD as ne eded for edema 05/18/2014 04/25/2015 Inactive Lasix 40 mg tablet RxNorm: 259115 1 Tablet(s) PO RAZA ramirez take potassium supplementation with this medication 05/14/2014 05/17/2014 Inactive hydrocodone 10 mg-acetaminophen 325 mg tablet RxNorm: 133859 1-2 Tablet(s) QID as needed for pain TAKE ONE TO TWO TABLETS BY MOUTH FOUR TIMES A DAY . MUST LAST 30 DAYS 05/07/2014 06/05/2014 Inactive (Response to an electronic controlled substance refill request - RxReferenceNumber: [id number]) alprazolam 0.5 mg tablet RxNorm: 608584 TAKE ONE TABLET BY MOUTH TWICE A DAY , MUST LAST 30 DAYS 05/07/2014 05/22/2016 Inactive (Response to a n electronic controlled substance refill request - RxReferenceNumber: [id number]) diclofenac sodium 75 mg tablet,delayed release RxNorm: 32385 6 1 Tablet(s) PO BID for pain 04/24/2014 07/20/2014 Inactive Celebrex 200 mg capsule RxNorm: 573306 TAKE ONE CAPSULE BY MOUT H EVERY DAY 04/24/2014 07/20/2014 Inactive alprazolam 0.5 mg tablet RxNorm: 576717 TAKE ONE TABLET BY MOUTH TWICE A DAY , MUST LAST 30 DAYS 03/24/2014 04/22/2014 Inactive (Response to a n electronic controlled substance refill request - RxReferenceNumber: [id number]) diclofenac sodium 75 mg tablet,delayed release RxNorm: 22006 6 1 Tablet(s) PO BID for pain 03/24/2014 04/24/2014 Inactive clonidine HCl 0.1 mg tablet RxNorm: 325857 1 Tablet(s) PO TID 03/2409/28/2014 Inactive replaces 0.2mg dose Klor-Con 8 mEq tablet,extended release RxNorm: 521682 1 Tablet( s) PO BID 02/26/2014 08/31/2014 Inactive diclofenac sodium 75 mg tablet,delayed release RxNorm: 35256 6 1 Tablet(s) PO BID for pain 02/25/2014 03/24/2014 Inactive hydrocodone 10 mg-acetaminophen 325 mg tablet RxNorm: 903232 1-2 Tablet(s) QID as needed for pain TAKE ONE TO TWO TABLETS BY MOUTH FOUR TIMES A DAY . MUST LAST 30 DAYS 02/25/2014 03/26/2014 Inactive (Response to an electronic controlled substance refill request - RxReferenceNumber: [id number]) alprazolam 0.5 mg tablet RxNorm: 418384 Tablet(s) PO BI D as needed for anxiety TAKE ONE TABLET BY MOUTH TWICE A DAY , MUST LAST 30 DAYS 02/25/2014 Inactive (Response to an electronic controlled [place] bstance refill request - RxReferenceNumber: [id number]) [AttnRPh: Saving apply/adjudicate RxGRP:SG20 RxBIN:[id number] RxPCN: ID#:[id number]] alprazolam 0.5 mg tablet RxNorm: 142508 Tablet(s) TAKE ONE TABLET BY MOUTH TWICE A DAY , MUST LAST 30 DAYS 01/27/2014 02/24/2014 Inactive (Respo nse to an electronic controlled substance refill request - RxReferenceNumber: [id number]) [AttnRPh: Saving apply/adjudicate RxGRP:SG20 RxBIN:[id number] RxPCN: ID#:[id number]] hydrocodone 10 mg-acetaminophen 325 mg tablet RxNorm: 194499 1-2 Tablet(s) QID as needed for pain TAKE ONE TO TWO TABLETS BY MOUTH FOUR TIMES A DAY . MUST LAST 30 DAYS 01/27/2014 02/24/2014 Inactive (Response to an electronic controlled substance refill request - RxReferenceNumber: [id number]) alprazolam 0.5 mg tablet RxNorm: 754632 TAKE ONE TABLET BY MOUTH TWICE A DAY , MUST LAST 30 DAYS 01/27/2014 01/26/2014 Inactive (Response to a n electronic controlled substance refill request - RxReferenceNumber: [id number]) Premarin 1.25 mg tablet RxNorm: 156297 1-2 Tablet(s) PO QD 01/28/20 14 07/25/2014 Inactive alprazolam 0.5 mg tablet RxNorm: 340128 TAKE ONE TABLET BY MOUTH TWICE A DAY , MUST LAST 30 DAYS 01/27/2014 01/27/2014 Inactive (Response to a n electronic controlled substance refill request - RxReferenceNumber: [id number]) hydrocodone 10 mg-acetaminophen 325 mg tablet RxNorm: 764801 TAKE ONE TO TWO TABLETS BY MOUTH FOUR TIMES A DAY . MUST LAST 30 DAYS 01/27/20142013 Inactive (Response to an electronic controlled [place] bstance refill request - RxReferenceNumber: [id number]) Celebrex 200 mg capsule RxNorm: 547200 1 Capsule(s) PO QD TAKE ONE CAPSULE BY MOUTH EVERY DAY 12/29/2013 04/27/2014 Inactive hydrocodone 10 mg-acetaminophen 325 mg tablet RxNorm: 065253 1-2 Tablet(s) PO QID as needed for severe pain 12/29/2013 01/27/2014 Inactive allopurinol 300 mg tablet RxNorm: 725771 1 Tablet(s) PO QD TAKE ONE TABLET BY MOUTH EVERY DAY 12/29/2013 05/24/2014 Inactive alprazolam 0.5 mg tablet RxNorm: 148128 TAKE ONE TABLET BY MOUTH TWICE A DAY , MUST LAST 30 DAYS 12/29/2013 01/27/2014 Inactive (Response to a n electronic controlled substance refill request - RxReferenceNumber: [id number]) Celebrex 200 mg capsule RxNorm: 021452 1 Capsule(s) PO QD TAKE ONE CAPSULE BY MOUTH EVERY DAY 12/29/2013 12/29/2013 Inactive Bystolic 10 mg tablet RxNorm: 188361 1 Tablet(s) PO QAM TAKE ONE TABLET BY MOUTH EVERY MORNING 12/29/2013 05/24/2014 Inactive Bystolic 10 mg tablet RxNorm: 341800 1 Tablet(s) PO QAM TAKE ONE TABLET BY MOUTH EVERY MORNING 12/29/2013 12/29/2013 Inactive Singulair 10 mg tablet RxNorm: 969194 1 Tablet(s) PO QD TAKE ONE TABLET BY MOUTH EVERY DAY 12/29/2013 05/25/2014 Inactive hydrocodone 10 mg-acetaminophen 325 mg tablet RxNorm: 501481 TAKE ONE TO TWO TABLETS BY MOUTH FOUR TIMES A DAY . MUST LAST 30 DAYS 12/29/20132013 Inactive (Response to an electronic controlled [place] bstance refill request - RxReferenceNumber: [id number]) Trazadone 75mg Tablet RxNorm: 1 Tablet(s) PO QHS as needed 03/23/2014 Inactive Trazadone 75mg Tablet RxNorm: 1 Tablet(s) PO QHS 12/24/20132014 Inactive Soma 350 mg tablet RxNorm: 751936 Tablet(s) PO TAKE ON E TABLET BY MOUTH THREE TIMES A DAY NEEDED FOR MUSCLE SPASMS. THIS MUST LAST 30 DAYS BETWEEN REFILLS. 12/10/2013 12/22/2013 Inactive (Appended: Cont rolled substance eRx refill - RxReferenceNumber: [id number]) diclofenac sodium 75 mg tablet,delayed release RxNorm: 72539 6 1 Tablet(s) PO BID for pain 12/10/2013 02/24/2014 Inactive allopurinol 300 mg tablet RxNorm: 704742 1 Tablet(s) PO QD 11/20/19 14 12/29/2013 Inactive alprazolam 0.5 mg tablet RxNorm: 906623 2 Tablet(s) PO BID 11/13/19 14 12/29/2013 Inactive prn clonidine 0.1 mg tablet RxNorm: 656787 1 Tablet(s) PO TID 11/12/2013 02/09/2014 Inactive replaces 0.2mg dose Klor-Con M20 mEq tablet,extended release RxNorm: 378319 2 Tablet(s) PO BID to use with lasix 11/12/2013 05/10/2014 Inactive Singulair 10 mg tablet RxNorm: 216194 1 Tablet(s) PO QD 11/12/2013 Inactive hydrocodone 10 mg-acetaminophen 325 mg tablet RxNorm: 590480 1-2 Tablet(s) PO QID as needed for severe pain 11/12/2013 12/28/2013 Inactive Bystolic 10 mg tablet RxNorm: 772550 1 Tablet(s) PO QAM 11/12/2013 Inactive Soma 350 mg tablet RxNorm: 536615 Tablet(s) PO TAKE ON E TABLET BY MOUTH THREE TIMES A DAY NEEDED FOR MUSCLE SPASMS. THIS MUST LAST 30 DAYS BETWEEN REFILLS. 10/13/2013 12/10/2013 Inactive (Appended: Cont rolled substance eRx refill - RxReferenceNumber: [id number]) hydrocodone 10 mg-acetaminophen 325 mg tablet RxNorm: 697980 1-2 Tablet(s) PO QID as needed for severe pain 10/03/2013 11/11/2013 Inactive diclofenac sodium 75 mg tablet,delayed release RxNorm: 02315 8 1 Tablet(s) PO BID for pain 09/11/2013 12/10/2013 Inactive alprazolam 0.5 mg tablet RxNorm: 686308 1 Tablet(s) PO BID May refill on 04/26/13 09/01/2013 10/30/2013 Inactive prn hydrocodone 10 mg-acetaminophen 325 mg tablet RxNorm: 963660 1-2 Tablet(s) PO QID as needed for severe pain 09/01/2013 10/02/2013 Inactive triamterene 75 mg-hydrochlorothiazide 50 mg tablet RxNorm: 3 92512 1 Tablet(s) PO QD 08/04/2013 08/31/2014 Inactive cyclobenzaprine 10 mg tablet RxNorm: 075469 1 Tablet(s) PO TID prn spasm 08/04/2013 08/13/2013 Inactive clonidine 0.1 mg tablet RxNorm: 012985 1 Tablet(s) PO TID 08/04/2013 11/11/2013 Inactive replaces 0.2mg dose cyclobenzaprine 10 mg tablet RxNorm: 291105 1 Tablet(s) PO TID prn spasm 07/23/2013 08/01/2013 Inactive hydrocodone 10 mg-acetaminophen 325 mg tablet RxNorm: 938703 2 1-2 Tablet(s) PO QID as needed for severe pain 06/09/2013 08/07/2013 Inactive Singulair 10 mg tablet RxNorm: 364735 1 Tablet(s) PO QD 05/29/2013 Inactive Klor-Con 8 mEq tablet,extended release RxNorm: 070436 1 Tablet( s) PO BID 05/29/2013 02/26/2014 Inactive allopurinol 300 mg tablet RxNorm: 243924 1 Tablet(s) PO QD 05/29/2011/19/2013 Inactive Bystolic 10 mg tablet RxNorm: 185666 1 Tablet(s) PO QAM take one daily in the morning. 05/29/2013 11/11/2013 Inactive scopolamine 1.5 mg 72 hr Transderm Patch RxNorm: 620353 Application TD Q72H for motion sickness 05/26/2013 07/22/2013 Inactive Soma 350 mg tablet RxNorm: 782653 1 Tablet(s) PO TID as needed for spasm 05/19/2013 10/13/2013 Inactive diclofenac sodium 75 mg tablet,delayed release RxNorm: 09230 8 1 Tablet(s) PO BID for pain 05/14/2013 07/22/2013 Inactive allopurinol 300 mg tablet RxNorm: 087253 1 Tablet(s) PO QD 04/25/2005/28/2013 Inactive alprazolam 0.5 mg tablet RxNorm: 273957 1 Tablet(s) PO BID May refill on 04/26/13 04/25/2013 06/23/2013 Inactive prn Celebrex 200 mg capsule RxNorm: 311282 1 Capsule(s) PO QD 04/16/2013 12/29/2013 Inactive alprazolam 0.5 mg tablet RxNorm: 763661 1 Tablet(s) PO BID May refill on 04/26/13 04/16/2013 04/24/2013 Inactive prn Soma 350 mg tablet RxNorm: 588001 1 Tablet(s) PO TID as needed for spasm 04/16/2013 No Stop Date Active Lasix 40 mg tablet RxNorm: 876218 1 Tablet(s) PO QAM s hould take potassium supplementation with this medication 04/16/2013 06/14/2013 Inactive clonidine 0.1 mg tablet RxNorm: 472128 1 Tablet(s) PO TID 04/16/2013 08/03/2013 Inactive replaces 0.2mg dose prednisone 20 mg tablet RxNorm: 195981 1 Tablet(s) PO BID 04/16/2013 04/20/2013 Inactive diclofenac sodium 75 mg tablet,delayed release RxNorm: 41933 8 1 Tablet(s) PO BID for pain 04/14/2013 05/13/2013 Inactive hydrocodone 10 mg-acetaminophen 325 mg tablet RxNorm: 847753 2 1-2 Tablet(s) PO QID as needed for severe pain 04/14/2013 No Stop Date Active Lasix 40 mg tablet RxNorm: 372127 1 Tablet(s) PO QAM s hould take potassium supplementation with this medication 03/31/2013 04/15/2013 Inactive Celebrex 200 mg capsule RxNorm: 285832 1 Capsule(s) PO QD 03/31/2013 04/15/2013 Inactive alprazolam 0.5 mg tablet RxNorm: 637344 1 Tablet(s) PO BID 03/28/20 13 04/15/2013 Inactive prn hydrocodone 10 mg-acetaminophen 325 mg tablet RxNorm: 822118 2 1-2 Tablet(s) PO QID as needed for severe pain 03/10/2013 No Stop Date Active metformin ER 500 mg 24 hr tablet,extended release RxNorm: 86 1018 1 Tablet(s) PO QD 03/06/2013 07/22/2013 Inactive clindamycin 300 mg capsule RxNorm: 424447 2 Capsule(s) PO TID 03/0503/14/2013 Inactive Zaroxolyn 2.5 mg tablet RxNorm: 601277 1 Tablet(s) PO QAM 03/05/2013 05/19/2015 Inactive amlodipine 10 mg tablet RxNorm: 480047 1 Tablet(s) PO QD 03/03/2013 0 05/25/2013 Inactive Norvasc 10 mg tablet RxNorm: 765166 1 Tablet(s) PO QD 02/28/201307/11 Inactive Celebrex 200 mg capsule RxNorm: 688902 1 Capsule(s) PO QD 02/28/2013 03/30/2013 Inactive diclofenac sodium 75 mg tablet,delayed release RxNorm: 54254 8 1 Tablet(s) PO BID for pain 02/14/2013 03/15/2013 Inactive Soma 350 mg tablet RxNorm: 355320 1 Tablet(s) PO TID as needed for spasm 02/14/2013 No Stop Date Active hydrocodone 10 mg-acetaminophen 325 mg tablet RxNorm: 401878 2 1-2 Tablet(s) PO QID as needed for severe pain 02/14/2013 No Stop Date Active Norvasc 10 mg tablet RxNorm: 541938 1 Tablet(s) PO QD 02/10/201302/09 Inactive Celebrex 200 mg capsule RxNorm: 100752 1 Capsule(s) PO QD 01/27/2013 01/26/2013 Inactive Premarin 1.25 mg tablet RxNorm: 087681 1-2 Tablet(s) PO QD 01/28/20 13 06/25/2013 Inactive alprazolam 0.5 mg tablet RxNorm: 966144 1 Tablet(s) PO BID 01/28/20 13 02/25/2013 Inactive prn amlodipine 5 mg tablet RxNorm: 325128 1 Tablet(s) PO QD 01/27/2013 Inactive Celebrex 200 mg capsule RxNorm: 240590 1 Capsule(s) PO QD 01/27/2013 02/27/2013 Inactive gabapentin 600 mg tablet RxNorm: 434802 1 Tablet(s) PO QHS 01/16/20 13 07/22/2013 Inactive Soma 350 mg tablet RxNorm: 945472 1 Tablet(s) PO TID as needed for spasm 01/15/2013 No Stop Date Active hydrocodone 10 mg-acetaminophen 325 mg tablet RxNorm: 028534 2 1-2 Tablet(s) PO QID as needed for severe pain 01/15/2013 No Stop Date Active Soma 350 mg tablet RxNorm: 059253 1 Tablet(s) PO TID as needed for spasm 01/13/2013 No Stop Date Active alprazolam 0.5 mg tablet RxNorm: 827098 1 Tablet(s) PO BID 12/31/19 13 01/26/2013 Inactive prn diclofenac sodium 75 mg tablet,delayed release RxNorm: 48416 8 1 Tablet(s) PO BID for pain 12/09/2012 01/07/2013 Inactive gabapentin 600 mg tablet RxNorm: 645915 1 Tablet(s) PO QHS 12/10/19 13 01/07/2013 Inactive hydrocodone 10 mg-acetaminophen 325 mg tablet RxNorm: 947564 2 1-2 Tablet(s) PO QID as needed for severe pain 12/02/2012 No Stop Date Active Levaquin 750 mg tablet RxNorm: 333567 1 Tablet(s) PO QD 11/21/2012 Inactive Singulair 10 mg tablet RxNorm: 701637 1 Tablet(s) PO QD 11/11/2012 Inactive clonidine 0.2 mg tablet RxNorm: 680172 1 Tablet(s) PO TID 11/11/2012 04/15/2013 Inactive alprazolam 0.5 mg tablet RxNorm: 545778 1 Tablet(s) PO BID 11/12/19 13 12/10/2012 Inactive prn Klor-Con 8 mEq tablet,extended release RxNorm: 433585 1 Tablet( s) PO BID 11/11/2012 03/04/2013 Inactive hydrocodone 10 mg-acetaminophen 325 mg tablet RxNorm: 258522 2 1-2 Tablet(s) PO QID as needed for severe pain 11/06/2012 No Stop Date Active alprazolam 0.5 mg tablet RxNorm: 528783 1 Tablet(s) PO BID 10/15/19 13 11/10/2012 Inactive prn hydrocodone-acetaminophen 10 mg-325 mg tablet RxNorm: 637538 2 1-2 Tablet(s) PO QID as needed for severe pain 10/10/2012 10/09/2012 Inactive allopurinol 300 mg tablet RxNorm: 728850 1 Tablet(s) PO QD 09/20/19 13 12/18/2012 Inactive alprazolam 0.5 mg tablet RxNorm: 051175 1 Tablet(s) PO BID 09/17/19 13 10/14/2012 Inactive prn hydrocodone-acetaminophen 10 mg-325 mg tablet RxNorm: 208582 2 1-2 Tablet(s) PO QID as needed for severe pain 08/22/2012 08/21/2012 Inactive Norvasc 10 mg tablet RxNorm: 207586 1 Tablet(s) PO QD 08/12/201201/10 Inactive Premarin 1.25 mg tablet RxNorm: 253782 1-2 Tablet(s) PO QD 07/30/20 12 12/26/2012 Inactive alprazolam 0.5 mg tablet RxNorm: 960621 1 Tablet(s) PO BID 07/29/20 12 08/27/2012 Inactive prn Klor-Con 8 mEq tablet,extended release RxNorm: 591035 1 Tablet( s) PO BID 07/29/2012 11/10/2012 Inactive hydrocodone-acetaminophen 10 mg-325 mg tablet RxNorm: 054896 2 1-2 Tablet(s) PO QID as needed for severe pain 07/29/2012 No Stop Date Active Premarin 1.25 mg tablet RxNorm: 694275 1-2 Tablet(s) PO QD 07/29/20 12 07/29/2012 Inactive clonidine 0.2 mg tablet RxNorm: 902200 1 Tablet(s) PO TID 07/29/2012 10/28/2012 Inactive ketorolac 10 mg tablet RxNorm: 878490 1 Tablet(s) PO QID prn he adache 07/18/2012 No Stop Date Active hydrocodone-acetaminophen 10 mg-325 mg tablet RxNorm: 581653 2 1-2 Tablet(s) PO QID as needed for severe pain 07/03/2012 No Stop Date Active amlodipine 5 mg tablet RxNorm: 200270 1 Tablet(s) PO QD 07/02/2012 Inactive allopurinol 300 mg tablet RxNorm: 700709 1 Tablet(s) PO QD 07/02/2009/19/2012 Inactive Celebrex 200 mg capsule RxNorm: 226888 1 Capsule(s) PO QD for j oint pain 06/26/2012 10/23/2012 Inactive diclofenac sodium 75 mg tablet,delayed release RxNorm: 04077 8 1 Tablet(s) PO BID for pain 06/19/2012 09/16/2012 Inactive hydrocodone-acetaminophen 10 mg-325 mg tablet RxNorm: 151851 2 1-2 Tablet(s) PO QID as needed for severe pain 06/10/2012 No Stop Date Active alprazolam 0.5 mg tablet RxNorm: 277478 1 Tablet(s) PO BID 06/03/20 12 07/02/2012 Inactive prn ketorolac 10 mg tablet RxNorm: 828677 1 Tablet(s) PO Q8H 05/27/2012 0 01/21/2019 Inactive as needed for headache hydrocodone-acetaminophen 10 mg-325 mg tablet RxNorm: 976927 2 1-2 Tablet(s) PO QID as needed for severe pain 05/15/2012 No Stop Date Active allopurinol 300 mg tablet RxNorm: 067975 1 Tablet(s) PO QD 05/14/20 12 06/12/2012 Inactive allopurinol 300 mg tablet RxNorm: 788623 1 Tablet(s) PO QD 05/14/20 12 05/13/2012 Inactive amlodipine 5 mg tablet RxNorm: 375011 1 Tablet(s) PO QD 05/01/2012 Inactive amlodipine 5 mg Tab RxNorm: 295504 1 Tablet(s) PO QD 05/01/201204/30 Inactive Celebrex 200 mg capsule RxNorm: 848217 1 Capsule(s) PO QD for j oint pain 05/01/2012 06/25/2012 Inactive Singulair 10 mg tablet RxNorm: 318547 1 Tablet(s) PO QD 05/01/2012 Inactive alprazolam 0.5 mg tablet RxNorm: 949995 1 Tablet(s) PO BID 05/01/2005/30/2012 Inactive prn Celebrex 200 mg Cap RxNorm: 510611 1 Capsule(s) PO QD for joint radu n 05/01/2012 04/30/2012 Inactive hydrocodone-acetaminophen 10 mg-325 mg tablet RxNorm: 729978 2 1-2 Tablet(s) PO QID as needed for severe pain 04/19/2012 No Stop Date Active Lasix 40 mg tablet RxNorm: 459195 1 Tablet(s) PO QAM s hould take potassium supplementation with this medication 04/05/2012 06/03/2012 Inactive alprazolam 0.5 mg Tab RxNorm: 369392 1 Tablet(s) PO BID 04/05/2012 Inactive prn hydrocodone-acetaminophen 10 mg-325 mg Tab RxNorm: 7125814 1-2 Tablet(s) PO QID as needed for severe pain 03/25/2012 03/24/2012 Inactive clonidine 0.2 mg Tab RxNorm: 791917 1 Tablet(s) PO TID 03/08/2012 Inactive alprazolam 0.5 mg Tab RxNorm: 641536 1 Tablet(s) PO BID 03/08/2012 Inactive prn Soma 350 mg tablet RxNorm: 118340 1 Tablet(s) PO TID for spasm 02/0903/18/2012 Inactive clonidine 0.2 mg tablet RxNorm: 728597 1 Tablet(s) PO TID 03/08/2012 07/28/2012 Inactive Celebrex 200 mg Cap RxNorm: 920744 1 Capsule(s) PO QD for joint radu n 03/01/2012 04/29/2012 Inactive amlodipine 5 mg Tab RxNorm: 776267 1 Tablet(s) PO QD 02/26/201202/24 Inactive amlodipine 5 mg Tab RxNorm: 184270 1 Tablet(s) PO QD 02/26/201204/25 Inactive Bactroban 2 % Ointment RxNorm: 231150 Application TOP QID to sores 02/23/2012 No Stop Date Active amlodipine 2.5 mg tablet RxNorm: 731642 1 Tablet(s) PO QHS 02/20/20 12 02/25/2012 Inactive doxycycline hyclate 100 mg Cap RxNorm: 8913540 1 Capsule(s) PO BID 02/20/2012 02/29/2012 Inactive hydrocodone-acetaminophen 10 mg-325 mg Tab RxNorm: 3181961 1-2 T ablet(s) PO QID 02/08/2012 No Stop Date Active alprazolam 0.5 mg Tab RxNorm: 400582 1 Tablet(s) PO BID 02/08/2012 Inactive prn Singulair 10 mg Tab RxNorm: 946591 1 Tablet(s) PO QD 02/08/201204/30 Inactive Soma 350 mg Tab RxNorm: 198831 1 Tablet(s) PO TID for spasm 012 03/07/2012 Inactive Soma 350 mg Tab RxNorm: 166854 1 Tablet(s) PO TID for spasm 012 02/05/2012 Inactive diclofenac sodium 75 mg tablet,delayed release RxNorm: 45523 8 1 Tablet(s) PO BID for pain 02/01/2012 03/18/2012 Inactive Celebrex 200 mg Cap RxNorm: 144857 1 Capsule(s) PO QD for joint radu n 01/30/2012 02/28/2012 Inactive Lasix 40 mg Tab RxNorm: 097052 1 Tablet(s) PO QAM 01/24/2012 03/18/20 12 Inactive potassium chloride ER 20 mEq tablet,extended release(part/cr yst) RxNorm: 696373 2 Tablet(s) PO BID 01/24/2012 02/22/2012 Inactive alprazolam 0.5 mg Tab RxNorm: 072716 1 Tablet(s) PO BID 01/11/2012 Inactive prn hydrocodone-acetaminophen 10 mg-325 mg Tab RxNorm: 6845163 1-2 T ablet(s) PO QID 01/11/2012 No Stop Date Active Ambien 10 mg Tab RxNorm: 406847 1 Tablet(s) PO QHS 01/11/2012 012 Inactive Klor-Con 8 mEq Tab RxNorm: 521012 1 Tablet(s) PO BID 01/11/201201/22 Inactive diclofenac sodium 75 mg Tab, Delayed Release RxNorm: 607087 1 Tablet(s) PO BID for pain 01/10/2012 01/31/2012 Inactive Ambien 10 mg Tab RxNorm: 910012 1 Tablet(s) PO QHS 12/11/2011 012 Inactive alprazolam 0.5 mg Tab RxNorm: 187938 1 Tablet(s) PO BID 12/11/2011 Inactive prn hydrocodone 10 mg-acetaminophen 325 mg tablet RxNorm: 118575 1-2 Tablet(s) PO TID 11/28/2011 No Stop Date Active as needed for pa in - Previous quantity #240, will start dosing for #180 in April [address] Ignacio. Ambien 10 mg Tab RxNorm: 212642 1 Tablet(s) PO QHS 11/09/2011 012 Inactive alprazolam 0.5 mg Tab RxNorm: 416474 1 Tablet(s) PO BID 11/09/2011 Inactive prn hydrocodone-acetaminophen 10 mg-325 mg Tab RxNorm: 9114000 1-2 T ablet(s) PO TID 11/06/2011 No Stop Date Active as needed for pain - Previous quantity #240, will start dosing for #180 in April [address] Ignacio. Singulair 10 mg Tab RxNorm: 747923 1 Tablet(s) PO QD 10/13/201110/12 Inactive Singulair 10 mg Tab RxNorm: 433729 1 Tablet(s) PO QD 10/13/201102/06 Inactive hydrocodone-acetaminophen 10 mg-325 mg Tab RxNorm: 7999282 1-2 T ablet(s) PO TID 10/10/2011 10/09/2011 Inactive as needed for pain - Previous quantity #240, will start dosing for #180 in April [address] Ignacio. hydrocodone-acetaminophen 10 mg-325 mg Tab RxNorm: 3372417 1-2 T ablet(s) PO TID 10/09/2011 No Stop Date Active as needed for pain - Previous quantity #240, will start dosing for #180 in April [address] Ignacio. Klor-Con 8 mEq Tab RxNorm: 483009 1 Tablet(s) PO BID 10/02/201101/09 Inactive triamterene 75 mg-hydrochlorothiazide 50 mg tablet RxNorm: 3 27527 1 Tablet(s) PO QD 09/14/2011 03/06/2013 Inactive Ambien 10 mg Tab RxNorm: 525243 1 Tablet(s) PO QHS 09/14/2011 012 Inactive hydrocodone-acetaminophen 10 mg-325 mg Tab RxNorm: 9547316 1-2 T ablet(s) PO TID 09/14/2011 No Stop Date Active as needed for pain - Previous quantity #240, will start dosing for #180 in April [address] Ignacio. alprazolam 0.5 mg Tab RxNorm: 158072 1 Tablet(s) PO BID 09/14/2011 Inactive prn Zithromax 500 mg Tab RxNorm: 134862 1 Tablet(s) PO QD 09/13/201109/10 Inactive prednisone 20 mg Tab RxNorm: 115742 1 Tablet(s) PO BID 08/31/2011 Inactive Ambien 10 mg Tab RxNorm: 099030 1 Tablet(s) PO QHS 08/17/2011 011 Inactive hydrocodone-acetaminophen 10 mg-325 mg Tab RxNorm: 1299548 1-2 T ablet(s) PO TID 08/17/2011 No Stop Date Active as needed for pain - Previous quantity #240, will start dosing for #180 in April [address] Ignacio. clonidine 0.2 mg Tab RxNorm: 418149 1 Tablet(s) PO TID 08/17/201112/2011 Inactive Ambien 10 mg Tab RxNorm: 601487 1 Tablet(s) PO QHS 08/17/2011 019 Inactive alprazolam 0.5 mg Tab RxNorm: 052476 1 Tablet(s) PO BID 08/17/2011 Inactive prn hydrocodone-acetaminophen 10 mg-325 mg Tab RxNorm: 5332177 1-2 T ablet(s) PO TID 08/17/2011 08/16/2011 Inactive as needed for pain - Previous quantity #240, will start dosing for #180 in April [address] Ignacio. Singulair 10 mg Tab RxNorm: 531144 1 Tablet(s) PO QD 08/17/201108/16 Inactive Klor-Con 8 mEq Tab RxNorm: 421118 1 Tablet(s) PO QD 08/17/20112011 Inactive alprazolam 0.5 mg Tab RxNorm: 964314 1 Tablet(s) PO BID 07/20/2011 Inactive prn Ambien 10 mg Tab RxNorm: 272906 1 Tablet(s) PO QHS 07/20/2011 012 Inactive Singulair 10 mg Tab RxNorm: 316276 1 Tablet(s) PO QD 07/20/201107/19 Inactive Premarin 1.25 mg tablet RxNorm: 299402 2 Tablet(s) PO QD 07/20/2011 0 01/21/2019 Inactive Premarin 1.25 mg tablet RxNorm: 165971 1-2 Tablet(s) PO QD 07/20/20 11 12/16/2011 Inactive Premarin 1.25 mg Tab RxNorm: 338596 1-2 Tablet(s) PO QD 07/06/2011 Inactive alprazolam 0.5 mg Tab RxNorm: 752765 1 Tablet(s) PO BID 06/22/2011 Inactive prn alprazolam 0.5 mg Tab RxNorm: 420025 1 Tablet(s) PO BID 06/22/2011 Inactive prn Premarin 1.25 mg Tab RxNorm: 553033 1 Tablet(s) PO QD m ay do 90 day fill if desired 06/22/2011 07/05/2011 Inactive hydrocodone-acetaminophen 10 mg-325 mg Tab RxNorm: 2507827 1-2 T ablet(s) PO TID 06/22/2011 No Stop Date Active as needed for pain - Previous quantity #240, will start dosing for #180 in April [address] Ignacio. clonidine 0.2 mg Tab RxNorm: 160664 1 Tablet(s) PO TID 05/25/201103/2011 Inactive triamterene-hydrochlorothiazide 75 mg-50 mg Tab RxNorm: 3108 18 1 Tablet(s) PO QD 05/25/2011 09/13/2011 Inactive alprazolam 0.5 mg Tab RxNorm: 388691 1 Tablet(s) PO BID 05/25/2011 Inactive prn hydrocodone-acetaminophen 10 mg-325 mg Tab RxNorm: 3993792 1-2 T ablet(s) PO TID 05/25/2011 No Stop Date Active as needed for pain - Previous quantity #240, will start dosing for #180 in April [address] Ignacio. Robaxin-750 750 mg Tab RxNorm: 102462 2 Tablet(s) PO QHS 05/22/2011 1 Inactive prn spasm hydrocodone-acetaminophen 10 mg-325 mg Tab RxNorm: 3615681 1-2 T ablet(s) PO TID 04/26/2011 No Stop Date Active as needed for pain - Previous quantity #240, will start dosing for #180 in April [address] Ignacio. alprazolam 0.5 mg Tab RxNorm: 023947 1 Tablet(s) PO BID 04/25/2011 Inactive prn Klor-Con 8 mEq Tab RxNorm: 464074 1 Tablet(s) PO QD 03/30/20112010 Inactive Klor-Con 8 mEq Tab RxNorm: 272844 1 Tablet(s) PO QD 03/29/20112010 Inactive hydrocodone-acetaminophen 10 mg-325 mg Tab RxNorm: 2292344 1-2 T ablet(s) PO TID 03/20/2011 04/25/2011 Inactive as needed for pain - Previous quantity #240, will start dosing for #180 in April [address] Ignacio. alprazolam 0.5 mg Tab RxNorm: 721272 1 Tablet(s) PO BID prn 011 03/30/2011 Inactive Ambien 10 mg Tab RxNorm: 715140 1 Tablet(s) PO QHS 03/01/2011 011 Inactive cyclobenzaprine 10 mg Tab RxNorm: 606959 1 Tablet(s) PO TID 011 03/18/2012 Inactive cyclobenzaprine 10 mg Tab RxNorm: 676171 1 Tablet(s) PO TID 011 01/08/2011 Inactive cyclobenzaprine 10 mg Tab RxNorm: 234000 1 Tablet(s) PO TID 011 12/20/2010 Inactive terbinafine 250 mg Tab RxNorm: 901684 1 Tablet(s) PO QD 12/12/2010 Inactive triamterene-hydrochlorothiazide 75 mg-50 mg Tab RxNorm: 3108 18 1 Tablet(s) PO QD 12/07/2010 01/12/2020 Inactive Klor-Con 8 8 mEq Tab RxNorm: 022420 1 Tablet(s) PO QD 12/07/201001/08 Inactive Premarin 1.25 mg Tab RxNorm: 401947 2 Tablet(s) PO QD 12/07/201001/08 Inactive clonidine 0.2 mg Tab RxNorm: 666116 1 Tablet(s) PO TID 12/07/2010 Inactive hydrocodone-acetaminophen 7.5 mg-650 mg Tab RxNorm: 101485 1 Ta blet(s) PO Q4H 12/05/2010 01/21/2019 Inactive hydrocodone-acetaminophen 7.5 mg-650 mg Tab RxNorm: 819644 1 Ta blet(s) PO Q4H 10/26/2010 11/14/2010 Inactive hydrocodone-acetaminophen 7.5 mg-650 mg Tab RxNorm: 925963 1 Ta blet(s) PO Q4H 10/13/2010 10/25/2010 Inactive hydrocodone-acetaminophen 7.5 mg-650 mg Tab RxNorm: 573991 1 Ta blet(s) PO Q4H 09/15/2010 09/12/2010 Inactive alprazolam 0.5 mg Tab RxNorm: 274283 1 Tablet(s) PO BID prn 011 09/12/2010 Inactive terbinafine 250 mg Tab RxNorm: 985864 1 Tablet(s) PO QD 09/05/2010 Inactive hydrocodone-acetaminophen 7.5 mg-650 mg Tab RxNorm: 174347 1 Ta blet(s) PO Q4H 08/29/2010 09/17/2010 Inactive alprazolam 0.5 mg Tab RxNorm: 873511 1 Tablet(s) PO BID prn 010 09/27/2010 Inactive alprazolam 0.5 mg Tab RxNorm: 085156 1 Tablet(s) PO BID prn 010 09/06/2010 Inactive Klor-Con 8 mEq Tab RxNorm: 125336 1 Tablet(s) PO QD 08/08/20102010 Inactive hydrocodone-acetaminophen 7.5 mg-650 mg Tab RxNorm: 069518 1 Ta blet(s) PO Q4H 08/08/2010 08/27/2010 Inactive Ambien 10 mg Tab RxNorm: 588345 1 Tablet(s) PO QHS 08/08/2010 Inactive clonidine 0.2 mg Tab RxNorm: 414576 1 Tablet(s) PO TID 08/08/2010 Inactive Premarin 1.25 mg Tab RxNorm: 825267 2 Tablet(s) PO QD 08/08/201009/12 Inactive Ambien 10 mg Tab RxNorm: 927607 1 Tablet(s) PO QHS 07/18/2010 Inactive alprazolam 0.5 mg Tab RxNorm: 590350 1 Tablet(s) PO BID prn 010 08/07/2010 Inactive hydrocodone-acetaminophen 7.5 mg-650 mg Tab RxNorm: 452263 1 Ta blet(s) PO Q4H 07/12/2010 07/31/2010 Inactive clonidine 0.2 mg Tab RxNorm: 623827 1 Tablet(s) PO TID 06/20/2010 Inactive terbinafine 250 mg Tab RxNorm: 723344 1 Tablet(s) PO QD 05/24/2010 Inactive Clonidine 0.2 mg Tab RxNorm: 333590 1 Tablet(s) PO TID 05/24/201006/2010 Inactive Ambien 10 mg Tab RxNorm: 914269 1 Tablet(s) PO QHS 05/24/2010 010 Inactive alprazolam 0.5 mg Tab RxNorm: 114940 1 Tablet(s) PO BID 05/24/2010 Inactive Klor-Con 8 mEq Tab RxNorm: 886908 1 Tablet(s) PO QD 05/24/20102009 Inactive alprazolam 0.5 mg Tab RxNorm: 802229 2 Tablet(s) PO QD prn 05/24/20 10 07/17/2010 Inactive triamterene-hydrochlorothiazide 75 mg-50 mg Tab RxNorm: 3108 18 1 Tablet(s) PO QD 05/24/2010 11/19/2010 Inactive Ambien 10 mg Tab RxNorm: 850083 1 Tablet(s) PO QHS 05/23/2010 010 Inactive Alprazolam 0.5 mg Tab RxNorm: 688245 2 Tablet(s) PO QD prn 05/23/2005/23/2010 Inactive Premarin 1.25 mg Tab RxNorm: 838734 2 Tablet(s) PO QD 05/19/201007/12 Inactive Hydrocodone-Acetaminophen 7.5 mg-650 mg Tab RxNorm: 666831 1 Ta blet(s) PO Q4H 05/19/2010 03/20/2011 Inactive Prednisone 20 mg Tab RxNorm: 846417 1 Tablet(s) PO BID 05/17/2010 Inactive Prednisone 20 mg Tab RxNorm: 339016 1 Tablet(s) PO BID 05/06/201001/2010 Inactive Premarin 1.25 mg Tab RxNorm: 335372 Tablet(s) PO 2 M-W-F, and 1 Kf-Fc-Say-Sun 05/05/2010 08/02/2010 Inactive Premarin 1.25 mg Tab RxNorm: 764220 Tablet(s) PO 2 M-W-F, and 1 Dh-Pf-Akp-Sun 05/04/2010 05/04/2010 Inactive Premarin 1.25 mg Tab RxNorm: 782290 Tablet(s) PO 2 M-W-F, and 1 Bd-Ns-Iom-Sun 05/04/2010 05/03/2010 Inactive Prednisone 20 mg Tab RxNorm: 082995 1 Tablet(s) PO BID 04/27/2010 Inactive Alprazolam 0.5 mg Tab RxNorm: 984544 2 Tablet(s) PO QD prn 04/26/20 10 05/22/2010 Inactive Clindamycin 300 mg Cap RxNorm: 065947 2 Capsule(s) PO TID 04/05/2010 04/18/2010 Inactive Terbinafine 250 mg Tab RxNorm: 483517 1 Tablet(s) PO QD 04/04/2010 Inactive Hydrocodone-Acetaminophen 7.5 mg-650 mg Tab RxNorm: 273044 1 Ta blet(s) PO Q4H 03/30/2010 04/18/2010 Inactive Avelox 400 mg Tab RxNorm: 992667 1 Tablet(s) PO QD 03/09/2010 010 Inactive Hydrocodone-Acetaminophen 7.5 mg-650 mg Tab RxNorm: 389386 1 Ta blet(s) PO Q4H 03/08/2010 03/27/2010 Inactive Alprazolam 0.5 mg Tab RxNorm: 697004 2 Tablet(s) PO QD prn 03/08/20 10 04/25/2010 Inactive Klor-Con 8 mEq Tab RxNorm: 706702 1 Tablet(s) PO QD when takes lasi x 03/07/2010 09/29/2019 Inactive Premarin 1.25 mg Tab RxNorm: 834382 1 Tablet(s) PO QD 03/03/201003/11 Inactive Alprazolam 0.5 mg Tab RxNorm: 372943 1 Tablet(s) PO BID PRN 010 No Stop Date Active triamterene-hydrochlorothiazide 75 mg-50 mg Tab RxNorm: 3108 18 1 Tablet(s) PO QD 02/09/2010 02/03/2011 Inactive Hydrocodone-Acetaminophen 10 mg-750 mg Tab RxNorm: 016589 1 Tablet(s) PO Q4H PRN 02/09/2010 03/20/2011 Inactive Clonidine 0.2 mg Tab RxNorm: 014105 1 Tablet(s) PO TID 01/13/201009/2009 Inactive Alprazolam 0.5 mg Tab RxNorm: 064571 1 Tablet(s) PO BID PRN 010 01/12/2010 Inactive Hydrocodone-Acetaminophen 10 mg-750 mg Tab RxNorm: 145462 1 Tablet(s) PO Q4H PRN 01/13/2010 01/12/2010 Inactive ANGELIQ 1 mg-0.5 mg Tab RxNorm: 0264933 1 Tablet(s) PO QD 12/27/2009 01/23/2010 Inactive Lasix 40 mg Tab RxNorm: 619201 1 Tablet(s) PO QAM 12/14/2009 06/11/20 10 Inactive Vitamin B12 1000mcg Tablet RxNorm: 1 Tablet(s) PO QD No Start Date Active cyclobenzaprine 10 mg tablet RxNorm: 665855 1 Tablet(s) PO TID as needed DO NOT USE WITH BACLOFEN No Start Date Active Vitamin D 5,000 unit Tab RxNorm: 1 Tablet(s) PO QD No Start Date Active vitamin E (dl, acetate) 400 unit Cap RxNorm: 024028 1 Capsule(s ) PO QD No Start Date Active Benadryl 25 mg Cap RxNorm: 4384654 Capsule(s) PO PRN No Start Date Inactive amitriptyline 100 mg tablet RxNorm: 061533 1 Tablet(s) PO QHS No St art Date 11/27/2016 Inactive Zithromax Z-Dustin 250 mg tablet RxNorm: 397453 Tablet(s) PO as di rected No Start Date 07/22/2013 Inactive Klor-Con 8 mEq tablet,extended release RxNorm: 630596 1 Tablet( s) PO BID No Start Date 07/28/2012 Inactive scopolamine 1.5 mg 72 hr Transderm Patch RxNorm: 826437 Application TD Q72H for motion sickness No Start Date 05/25/2013 Inactive Klonopin 1 mg tablet RxNorm: 595431 1-2 Tablet(s) PO QHS as nee ded for sleep No Start Date 06/20/2015 Inactive Klor-Con M20 mEq tablet,extended release RxNorm: 450252 2 Tablet(s) PO BID to use with lasix No Start Date 11/11/2013 Inactive Bystolic 5 mg tablet RxNorm: 983107 1 Tablet(s) PO QD No Start Date 1 Inactive Bystolic 10 mg tablet RxNorm: 250317 1 Tablet(s) PO BID No Start Da te 07/06/2015 Inactive Premarin 1.25 mg Tab RxNorm: 096646 Tablet(s) PO 2 -W-, and 1 [id number] No Start Date 05/03/2010 Inactive baclofen 20 mg tablet RxNorm: 630069 1 Tablet(s) PO TID as needed for muscle spasm No Start Date 07/22/2015 Inactive hydrocodone-acetaminophen 7.5 mg-650 mg Tab RxNorm: 739282 1 Tablet(s) PO Q4H as needed for pain No Start Date 03/20/2011 Inactive albuterol sulfate 1.25 mg/3 mL Neb Solution RxNorm: 861822 1 Unit Dose INH Q4H 2boxes No Start Date 09/06/2015 Inactive Butrans 20 mcg/hour Transderm Patch RxNorm: 967662 1 TD WEEKLY apply to skin weekly after removing previous. No Start Date 07/22/2013 Inactive Medrol (Dustin) 4 mg tablets in a dose pack RxNorm: 274224 Tablet(s) PO As Directed No Start Date 07/30/2016 Inactive hydrocodone-acetaminophen 10 mg-325 mg Tab RxNorm: 9392272 1-2 Tablet(s) PO TID as needed for pain No Start Date 03/19/2011 Inactive Klonopin 1 mg tablet RxNorm: 186482 1 Tablet(s) PO QHS No Start Date 02/28/2016 Inactive honey topical RxNorm: topical No Start Date 06/16/2018 Inactive Clonidine 0.2 mg Tab RxNorm: 214941 1 Tablet(s) PO TID No Start Date 01/12/2010 Inactive ketorolac 10 mg tablet RxNorm: 382953 1 Tablet(s) PO Q8H No Start D ate 03/18/2012 Inactive as needed for headache Singulair 10 mg Tab RxNorm: 687975 1 Tablet(s) PO QD No Start Date Inactive Premarin 1.25 mg Tab RxNorm: 233956 1 Tablet(s) PO QD No Start Date 1 Inactive Flonase 50 mcg/Actuation Nasal [place] RxNorm: 7646312 1 [place] CECELIA AL BID No Start Date 03/18/2012 Inactive Terbinafine 250 mg Tab RxNorm: 713822 1 Tablet(s) PO QD No Start Da te 04/03/2010 Inactive Fexofenadine 180 mg Tab RxNorm: 3717137 1 Tablet(s) PO QD No Start Date 09/06/2015 Inactive baclofen 20 mg tablet RxNorm: 640595 1 Tablet(s) PO TID as needed N o Start Date 05/25/2014 Inactive Diovan 160 mg Tab RxNorm: 392984 1 Tablet(s) PO QD No Start Date 09/12 Inactive mupirocin 2 % topical ointment RxNorm: 075579 1 Application TOP QID No Start Date 04/25/2016 Inactive ZOFRAN ODT 4 mg Tab, Rapid Dissolve RxNorm: 663177 1 Tablet(s) PO Q4H No Start Date 03/18/2012 Inactive as needed for nausea and vomiting Alprazolam 0.5 mg Tab RxNorm: 406598 1 Tablet(s) PO BID PRN No Star t Date 01/12/2010 Inactive cyclobenzaprine 10 mg tablet RxNorm: 362234 1 Tablet(s) PO TID as needed for muscle spasm No Start Date 10/08/2017 Inactive Albuterol 0.083% Aerosol Solution RxNorm: 1 Appl ication INH Q4H Use one ampule every 4 hrs with nebulizer as needed for shortness of breath. No Start Date 10/09/2010 Inactive lorazepam 1 mg tablet RxNorm: 345228 1 1/2 Tablet(s) PO QHS No Star t Date 02/02/2016 Inactive Melatonin 3 mg Tab RxNorm: 093842 Tablet(s) PO PRN No Start Date 07/11 Inactive Medrol (Dustin) 4 mg Tabs in a Dose Pack RxNorm: 939702 Tablet(s) PO N o Start Date 11/28/2010 Inactive lorazepam 1 mg tablet RxNorm: 803781 1 Tablet(s) PO QHS as need ed for sleep No Start Date 01/30/2016 Inactive hydrocodone-acetaminophen 10 mg-325 mg Tab RxNorm: 4045790 1-2 Tablet(s) PO QID as needed for severe pain No Start Date 03/24/2012 Inactive celecoxib 200 mg capsule RxNorm: 177490 1 Capsule(s) PO BID No Star t Date 06/26/2019 Inactive amlodipine 5 mg-benazepril 20 mg capsule RxNorm: 358726 1 Capsu le(s) PO QD No Start Date 04/10/2017 Inactive Bystolic 20 mg tablet RxNorm: 188072 1/2 Tablet(s) PO QAM No Start Date 01/23/2016 Inactive Bystolic 20 mg tablet RxNorm: 555021 1 Tablet(s) PO QAM No Start Da te 04/25/2016 Inactive Ambien 10 mg Tab RxNorm: 593229 1 Tablet(s) PO QHS No Start Date 05/11 Inactive Klor-Con 8 mEq Tab RxNorm: 068167 1 Tablet(s) PO QD when takes lasix No Start Date 03/06/2010 Inactive aspirin 81 mg tablet RxNorm: 433272 1 Tablet(s) PO QD No Start Date 0 01/29/2018 Inactive hydrocodone-acetaminophen 10 mg-325 mg Tab RxNorm: 8611987 1-2 T ablet(s) PO QID No Start Date 01/10/2012 Inactive Bystolic 10 mg tablet RxNorm: 640791 1 Tablet(s) PO QAM take one daily in the morning. No Start Date 05/28/2013 Inactive nystatin 100,000 unit/mL Oral Susp RxNorm: 640945 5 Milliliter( s) PO QID No Start Date 03/18/2012 Inactive swish and spit scopolamine 1.5 mg 72 hr Transderm Patch RxNorm: 832269 1 Unit Dose TD Q72H for motion sickness No Start Date 12/23/2013 Inactive Hydrocodone-Acetaminophen 10 mg-750 mg Tab RxNorm: 826125 1 Tablet(s) PO Q4H PRN No Start Date 01/12/2010 Inactive Soma 350 mg tablet RxNorm: 241734 1 Tablet(s) PO TID as needed for spasm No Start Date 01/12/2013 Inactive baclofen 10 mg tablet RxNorm: 799459 1 Tablet(s) PO TID as needed for muscle spasm No Start Date 09/18/2019 Inactive Soma 350 mg Tab RxNorm: 742333 1 Tablet(s) PO TID for spasm No Star t Date 01/31/2012 Inactive Co Q-10 400 mg capsule RxNorm: 578334 1 Capsule(s) PO QD No Start D ate 01/21/2019 Inactive nystatin 100,000 unit/gram topical cream RxNorm: 324132 Applica tion TOP BID No Start Date 03/22/2015 Inactive Exforge 5 mg-160 mg Tab RxNorm: 639769 1 Tablet(s) PO QD No Start D ate 10/09/2010 Inactive Hydrocodone-Acetaminophen 7.5 mg-650 mg Tab RxNorm: 780612 1 Ta blet(s) PO Q4H No Start Date 03/07/2010 Inactive Robaxin-750 750 mg Tab RxNorm: 202115 1-2 Tablet(s) PO TID prn spasm No Start Date 05/21/2011 Inactive amlodipine 5 mg tablet RxNorm: 412238 1 Tablet(s) PO QHS No Start D ate 09/29/2015 Inactive oxycodone-acetaminophen 10 mg-325 mg tablet RxNorm: 8023235 1-2 Tablet(s) PO Q6H No Start Date 06/16/2018 Inactive Triamterene-Hydrochlorothiazide 75 mg-50 mg Tab RxNorm: 3108 18 1 Tablet(s) PO QD No Start Date 02/08/2010 Inactive Alprazolam 0.5 mg Tab RxNorm: 767989 2 Tablet(s) PO QD prn No Start Date 03/07/2010 Inactive Bystolic 20 mg tablet RxNorm: 098358 1 Tablet(s) PO QAM No Start Da te 08/17/2015 Inactive ketorolac 10 mg tablet RxNorm: 080550 1 Tablet(s) PO QID prn he adache No Start Date 07/17/2012 Inactive acyclovir 800 mg Tab RxNorm: 092171 1 Tablet(s) PO BID No Start Date 03/18/2012 Inactive duloxetine 60 mg capsule,delayed release RxNorm: 701190 1 Capsu le(s) PO QD No Start Date 09/29/2015 Inactive Norvasc 5 mg tablet RxNorm: 297874 1 Tablet(s) PO QHS No Start Date 1 10/18/2014 Inactive promethazine 25 mg tablet RxNorm: 889172 1 Tablet(s) PO Q8H use sparingly No Start Date 07/22/2013 Inactive alprazolam 0.5 mg tablet RxNorm: 171416 3 Tablet(s) PO QHS No Start Date 06/06/2015 Inactive Lunesta 3 mg tablet RxNorm: 114870 1 Tablet(s) PO QHS No Start Date 0 09/20/2017 Inactive hydrocodone-acetaminophen 10 mg-325 mg Tab RxNorm: 6010260 1-2 Tablet(s) PO TID as needed for pain No Start Date 12/10/2011 Inactive Coricidin HBP Cough & Cold 4 mg-30 mg Tab RxNorm: 2239000 Tablet (s) PO PRN No Start Date 10/09/2010 Inactive Bactroban 2 % Ointment RxNorm: 576975 Application TOP QID to so res No Start Date 02/22/2012 Inactive Flonase 50 mcg/actuation Nasal [place] RxNorm: 339631 2 [place] CECEL[place] AL QHS No Start Date 03/03/2014 Inactive Medication Administered No Medication Administered data Immunizations Vaccine Codes Date Status Tetanus, Diptheria, Pertussis CVX: 115 02/27/2014 Results Observation Observation Code Item Item Code Result Date S [facility] MEAN GLUC 1083143 Calc Mean Gluc 209 mg/dL 02/12/2020 Unkn own GLYCOSYLATED HEMOGLOBIN TEST 40659 Hgb A1c 99454-8 8.9 % 0 02/12/2020 Unknown GFR CALC 7806878 GFR Non Afr Amr >60 mL/min 02/12/2020 Un known GFR CALC 6956904 GFR Afr Amr >60 mL/min 02/12/2020 Unknow n COMPREHENSIVE METABOLIC 72398 AST 27 U/L 2019 Unknown COMPREHENSIVE METABOLIC 59592 ALT 16 U/L 2019 Unknown COMPREHENSIVE METABOLIC 88793 BUN 22 mg/dL 2019 Unknown COMPREHENSIVE METABOLIC 11687 ALBUMIN 3.9 g/dL 2019 Unknown COMPREHENSIVE METABOLIC 72127 CHLORIDE 98 mmol/L 2019 Unknown COMPREHENSIVE METABOLIC 32622 Bili Total 0.5 mg/dL 02/11 Unknown COMPREHENSIVE METABOLIC 00232 ALK PHOS 72 U/L 2019 Unknown COMPREHENSIVE METABOLIC 08438 SODIUM 137 mmol/L 02/11 Unknown COMPREHENSIVE METABOLIC 54834 CREATININE 0.96 mg/dL 12/2019 Unknown COMPREHENSIVE METABOLIC 85877 CALCIUM 9.1 mg/dL 2019 Unknown COMPREHENSIVE METABOLIC 16932 POTASSIUM 4.6 mmol/L 02/11 Unknown COMPREHENSIVE METABOLIC 78352 Total Protein 6.5 g/dL Unknown COMPREHENSIVE METABOLIC 27590 Glucose 129 mg/dL 2019 Unknown COMPREHENSIVE METABOLIC 58550 Bicarbonate 31 mmol/L 12/2019 Unknown COMPREHENSIVE METABOLIC 37978 AGAP 8 mmol/L 2019 Unknown COMPREHENSIVE METABOLIC 75631 AST 15 U/L 2019 Unknown COMPREHENSIVE METABOLIC 02536 ALT 13 U/L 2019 Unknown COMPREHENSIVE METABOLIC 64862 BUN 12 mg/dL 2019 Unknown COMPREHENSIVE METABOLIC 25903 ALBUMIN 3.9 g/dL 2019 Unknown COMPREHENSIVE METABOLIC 34712 CHLORIDE 97 mmol/L 2019 Unknown COMPREHENSIVE METABOLIC 68282 Bili Total 0.4 mg/dL 09/29 Unknown COMPREHENSIVE METABOLIC 40919 ALK PHOS 130 U/L 2019 Unknown COMPREHENSIVE METABOLIC 18380 SODIUM 136 mmol/L 09/29 Unknown COMPREHENSIVE METABOLIC 53632 CREATININE 0.92 mg/dL 09/11 Unknown COMPREHENSIVE METABOLIC 28194 CALCIUM 9.1 mg/dL 2019 Unknown COMPREHENSIVE METABOLIC 18318 POTASSIUM 4.4 mmol/L 09/29 Unknown COMPREHENSIVE METABOLIC 61742 Total Protein 6.2 g/dL Unknown COMPREHENSIVE METABOLIC 49381 Glucose 391 mg/dL 2019 Unknown COMPREHENSIVE METABOLIC 59209 Bicarbonate 30 mmol/L 09/11 Unknown COMPREHENSIVE METABOLIC 73237 AGAP 9 mmol/L 2019 Unknown MEAN GLUC 3511246 Calc Mean Gluc 332 mg/dL 09/29/2019 Unkn own COMPLETE BLOOD COUNT [id number] WBC 7.0 10e9/L 09/29/19 Unknown COMPLETE BLOOD COUNT [id number] RBC 4.69 10e12/L 2019 Unknown COMPLETE BLOOD COUNT [id number] HEMOGLOBIN 14.6 g/dL 09/29/19 Unknown COMPLETE BLOOD COUNT [id number] HEMATOCRIT 45.2 % 09/29/19 Unknown COMPLETE BLOOD COUNT [id number] MCV 96.4 fL 0 Unknown COMPLETE BLOOD COUNT [id number] MCH 31.1 pg 0 Unknown COMPLETE BLOOD COUNT [id number] MCHC 32.3 g/dL 0 Unknown COMPLETE BLOOD COUNT [id number] PLATELET COUNT 209 10e9/L Unknown COMPLETE BLOOD COUNT 8858187 Mean Plt Volume 9.8 fL Unknown COMPLETE BLOOD COUNT 1473176 Neut Auto 48.1 % 0 Unknown COMPLETE BLOOD COUNT [id number] Lymph Auto 36.5 % 09/29/19 Unknown COMPLETE BLOOD COUNT [id number] [place] Auto 8.6 % 0 Unknown COMPLETE BLOOD COUNT [id number] RDW 13.4 % 0 Unknown COMPLETE BLOOD COUNT [id number] Eos Auto 6.5 % 0 Unknown COMPLETE BLOOD COUNT 6931337 Baso Auto 0.3 % 0 Unknown COMPLETE BLOOD COUNT [id number] Neutrophil Abs 3.37 10e9/L Unknown COMPLETE BLOOD COUNT [id number] Lymphocyte Abs 2.56 10e9/L Unknown COMPLETE BLOOD COUNT [id number] Monocyte Abs 0.60 10e9/L 09/11 Unknown COMPLETE BLOOD COUNT [id number] Eosinophil Abs 0.46 10e9/L Unknown COMPLETE BLOOD COUNT [id number] RDW-SD 45.9 fL 0 Unknown COMPLETE BLOOD COUNT [id number] Basophil Abs 0.02 10e9/L 09/11 Unknown LIPID GROUP 14446 Cholesterol 248 mg/dL 09/29/2019 Unkno wn LIPID GROUP 43661 Triglyceride 898 mg/dL 09/29/2019 Unkn own LIPID GROUP 38551 HDL CHOLESTEROL 41 mg/dL 09/29/2019 U nknown LIPID GROUP 61178 Chol/HDL Ratio 6.05 ratio 09/29/2019 U nknown LIPID GROUP 50147 NON-HDL Chol 207 mg/dL 09/29/2019 Unkn own LIPID GROUP 75478 LDL Cholesterol N/A Trig >400 020 Unknown GLYCOSYLATED HEMOGLOBIN TEST 24439 Hgb A1c 59689-5 13.2 % 0 09/29/2019 Unknown FREE T4 33991 T4 Free 0.75 ng/dL 09/29/2019 Unknown GFR CALC 1277345 GFR Non Afr Amr >60 mL/min 09/29/2019 Un known GFR CALC 1198787 GFR Afr Amr >60 mL/min 09/29/2019 Unknow n THYROID STIMULATING HORMONE 26967 TSH 4.245 uIU/mL 09/29/2019 Unknown COMPLETE BLOOD COUNT [id number] WBC 10.7 10e9/L 018 Unknown COMPLETE BLOOD COUNT [id number] RBC 4.59 10e12/L 2017 Unknown COMPLETE BLOOD COUNT [id number] HEMOGLOBIN 14.8 g/dL 12/11/19 18 Unknown COMPLETE BLOOD COUNT [id number] HEMATOCRIT 44.9 % 12/11/19 18 Unknown COMPLETE BLOOD COUNT 4069136 MCV 97.8 fL 8 Unknown COMPLETE BLOOD COUNT 7704602 MCH 32.2 pg 8 Unknown COMPLETE BLOOD COUNT 5231775 MCHC 33.0 g/dL 8 Unknown COMPLETE BLOOD COUNT [id number] PLATELET COUNT 261 10e9/L 10/2017 Unknown COMPLETE BLOOD COUNT 6601040 Mean Plt Volume 9.5 fL 10/2017 Unknown COMPLETE BLOOD COUNT 5334742 Neut Auto 59.9 % 8 Unknown COMPLETE BLOOD COUNT [id number] Lymph Auto 27.4 % 12/11/19 18 Unknown COMPLETE BLOOD COUNT [id number] [place] Auto 8.2 % 8 Unknown COMPLETE BLOOD COUNT [id number] RDW 13.3 % 8 Unknown COMPLETE BLOOD COUNT 4760608 Eos Auto 4.1 % 8 Unknown COMPLETE BLOOD COUNT 0851172 Baso Auto 0.4 % 8 Unknown COMPLETE BLOOD COUNT [id number] Neutrophil Abs 6.41 10e9/L Unknown COMPLETE BLOOD COUNT [id number] Lymphocyte Abs 2.93 10e9/L Unknown COMPLETE BLOOD COUNT [id number] Monocyte Abs 0.88 10e9/L 10/2017 Unknown COMPLETE BLOOD COUNT 0954190 Eosinophil Abs 0.44 10e9/L Unknown COMPLETE BLOOD COUNT 7463977 RDW-SD 46.2 fL 8 Unknown COMPLETE BLOOD COUNT [id number] Basophil Abs 0.04 10e9/L 10/2017 Unknown THYROID STIMULATING HORMONE 26138 TSH 4.015 uIU/mL 12/10/2017 Unknown COMPREHENSIVE METABOLIC 17149 AST 25 U/L 2017 Unknown COMPREHENSIVE METABOLIC 18552 ALT 17 U/L 2017 Unknown COMPREHENSIVE METABOLIC 49820 BUN 19 mg/dL 2017 Unknown COMPREHENSIVE METABOLIC 81281 ALBUMIN 4.0 g/dL 2017 Unknown COMPREHENSIVE METABOLIC 28179 CHLORIDE 91 mmol/L 2017 Unknown COMPREHENSIVE METABOLIC 47720 Bili Total 0.5 mg/dL 12/10 Unknown COMPREHENSIVE METABOLIC 00280 ALK PHOS 75 U/L 2017 Unknown COMPREHENSIVE METABOLIC 47135 SODIUM 136 mmol/L 12/10 Unknown COMPREHENSIVE METABOLIC 49446 CREATININE 1.05 mg/dL 10/2017 Unknown COMPREHENSIVE METABOLIC 72876 CALCIUM 8.9 mg/dL 2017 Unknown COMPREHENSIVE METABOLIC 03322 POTASSIUM 3.4 mmol/L 12/10 Unknown COMPREHENSIVE METABOLIC 80044 Total Protein 6.5 g/dL Unknown COMPREHENSIVE METABOLIC 26261 Glucose 138 mg/dL 2017 Unknown COMPREHENSIVE METABOLIC 56798 Bicarbonate 35 mmol/L 10/2017 Unknown COMPREHENSIVE METABOLIC 73654 AGAP 10 mmol/L 2017 Unknown MEAN GLUC 7221919 Calc Mean Gluc 171 mg/dL 12/10/2017 Unkn own LIPID GROUP 47184 Cholesterol 204 mg/dL 12/10/2017 Unkno wn LIPID GROUP 05973 Triglyceride 411 mg/dL 12/10/2017 Unkn own LIPID GROUP 42766 HDL CHOLESTEROL 50 mg/dL 12/10/2017 U nknown LIPID GROUP 49062 Chol/HDL Ratio 4.08 ratio 12/10/2017 U nknown LIPID GROUP 57670 NON-HDL Chol 154 mg/dL 12/10/2017 Unkn own LIPID GROUP 44507 LDL Cholesterol N/A Trig >400 018 Unknown GLYCOSYLATED HEMOGLOBIN TEST 66870 Hgb A1c 06877-2 7.6 % 0 12/10/2017 Unknown FREE T4 50770 T4 Free 1.40 ng/dL 12/10/2017 Unknown GFR CALC 0102260 GFR Non Afr Amr 55 mL/min 12/10/2017 Unk nown GFR CALC 6697414 GFR Afr Amr >60 mL/min 12/10/2017 Unknow n GFR CALC 8855840 GFR Non Afr Amr 48 mL/min 06/28/2017 Unk nown GFR CALC 1660441 GFR Afr Amr 59 mL/min 06/28/2017 Unknown COMPREHENSIVE METABOLIC 06960 AST 32 U/L 2016 Unknown COMPREHENSIVE METABOLIC 81705 ALT 22 U/L 2016 Unknown COMPREHENSIVE METABOLIC 18400 BUN 23 mg/dL 2016 Unknown COMPREHENSIVE METABOLIC 60663 ALBUMIN 4.7 g/dL 2016 Unknown COMPREHENSIVE METABOLIC 37648 CHLORIDE 89 mmol/L 2016 Unknown COMPREHENSIVE METABOLIC 37769 Bili Total 0.5 mg/dL 06/28 Unknown COMPREHENSIVE METABOLIC 63236 ALK PHOS 90 U/L 2016 Unknown COMPREHENSIVE METABOLIC 09378 SODIUM 135 mmol/L 06/28 Unknown COMPREHENSIVE METABOLIC 44076 CREATININE 1.18 mg/dL 06/10 Unknown COMPREHENSIVE METABOLIC 91555 CALCIUM 9.7 mg/dL 2016 Unknown COMPREHENSIVE METABOLIC 96920 POTASSIUM 3.5 mmol/L 06/28 Unknown COMPREHENSIVE METABOLIC 24772 Total Protein 7.7 g/dL Unknown COMPREHENSIVE METABOLIC 63299 Glucose 129 mg/dL 2016 Unknown COMPREHENSIVE METABOLIC 15381 Bicarbonate 34 mmol/L 06/10 Unknown COMPREHENSIVE METABOLIC 32445 AGAP 12 mmol/L 2016 Unknown LIPID GROUP 36353 HDL TEST 64 MG/DL 08/27/2014 Unknown LIPID GROUP 77070 TRIG 222 MG/DL 08/27/2014 Unknown LIPID GROUP 15002 TEST LDL 209 MG/DL 08/27/2014 Unknown LIPID GROUP 77234 CHOL 317 MG/DL 08/27/2014 Unknown LIPID GROUP 62528 RCHOL/HDL 4.95 RATIO 08/27/2014 Unknow n LIPID GROUP 81031 NON-HDL CH 253 MG/DL 08/27/2014 Unknow n GFR CALC 4392552 GFR AA >60 ML/MIN 08/27/2014 Unknown GFR CALC 8441728 GFR NON-AA >60 ML/MIN 08/27/2014 Unknown COMPLETE BLOOD COUNT 8563680 WBC 7.0 10e9/L 08/27/20 14 Unknown COMPLETE BLOOD COUNT 6469403 RBC 4.98 10e12/L 2013 Unknown COMPLETE BLOOD COUNT 4615562 HGB 15.6 g/dL 4 Unknown COMPLETE BLOOD COUNT 3165256 HCT DET 46.5 % 4 Unknown COMPLETE BLOOD COUNT 8999542 MCV 93.4 fL 4 Unknown COMPLETE BLOOD COUNT 5006364 MCH 31.3 pg 4 Unknown COMPLETE BLOOD COUNT 0508270 MCHC 33.5 g/dL 4 Unknown COMPLETE BLOOD COUNT 1473523 PLT 309 10e9/L 08/27/20 14 Unknown COMPLETE BLOOD COUNT 4031241 MPV 9.6 fL 4 Unknown COMPLETE BLOOD COUNT 3128707 CADEN % 57.2 % 4 Unknown COMPLETE BLOOD COUNT 1154132 LY % 33.2 % 4 Unknown COMPLETE BLOOD COUNT 8748385 MON % 7.3 % 4 Unknown COMPLETE BLOOD COUNT 9787879 EOS % 2.0 % 4 Unknown COMPLETE BLOOD COUNT 2642460 BASO % 0.3 % 4 Unknown COMPLETE BLOOD COUNT 2788909 RDW 13.7 % 4 Unknown COMPLETE BLOOD COUNT [id number] ABS CADEN 4.00 10e9/L 014 Unknown COMPLETE BLOOD COUNT 1191448 ABS LYMPH 2.32 10e9/L 014 Unknown COMPLETE BLOOD COUNT 1003982 ABS MONO 0.51 10e9/L 014 Unknown COMPLETE BLOOD COUNT 5322004 ABS EOS 0.14 10e9/L 014 Unknown COMPLETE BLOOD COUNT [id number] ABS BASO 0.02 10e9/L 014 Unknown COMPLETE BLOOD COUNT 8160701 RDW-SD 45.1 fL 4 Unknown COMPREHENSIVE METABOLIC 88287 AST 13 U/L 2013 Unknown COMPREHENSIVE METABOLIC 23710 ALT 11 IU/L 2013 Unknown COMPREHENSIVE METABOLIC 99947 BUN 23 MG/DL 2013 Unknown COMPREHENSIVE METABOLIC 38226 ALBUMIN 4.4 GM/DL 2013 Unknown COMPREHENSIVE METABOLIC 40473 CHLORIDE 99 MMOL/L 2013 Unknown COMPREHENSIVE METABOLIC 49346 BILI TOT 0.5 MG/DL 2013 Unknown COMPREHENSIVE METABOLIC 97594 ALK PHOS 56 U/L 2013 Unknown COMPREHENSIVE METABOLIC 82486 SODIUM 138 MMOL/L 08/27 Unknown COMPREHENSIVE METABOLIC 81427 CREATININE 0.95 MG/DL 08/10 Unknown COMPREHENSIVE METABOLIC 76680 CALCIUM 9.8 MG/DL 2013 Unknown COMPREHENSIVE METABOLIC 11799 POTASSIUM 3.5 MMOL/L 08/27 Unknown COMPREHENSIVE METABOLIC 78697 PROT TOT 6.8 GM/DL 2013 Unknown COMPREHENSIVE METABOLIC 15506 Glucose 90 MG/DL 2013 Unknown COMPREHENSIVE METABOLIC 55491 BICARB 34 MMOL/L 2013 Unknown COMPREHENSIVE METABOLIC 95082 ANION GAP 5 MEQ/L 2013 Unknown LIPASE 43830 LIPASE 11 IU/L 07/21/2014 Unknown AMYLASE 72484 AMYLASE 39 IU/L 07/21/2014 Unknown HEMOGLOBIN A1C (GLYCOSYLATED) 7909283 A1C HPLC 89263-1 6.2 % 03/05/2013 Unknown THYROID STIMULATING HORMONE 85384 TSH 6.986 uIU/ML 03/05/2013 Unknown COMPLETE BLOOD COUNT [id number] WBC 12.7 10e9/L 013 Unknown COMPLETE BLOOD COUNT 3487590 RBC 4.53 10e12/L 2012 Unknown COMPLETE BLOOD COUNT 8329460 HGB 14.7 g/dL 3 Unknown COMPLETE BLOOD COUNT 3470563 HCT DET 43.1 % 3 Unknown COMPLETE BLOOD COUNT 4649389 MCV 95.1 fL 3 Unknown COMPLETE BLOOD COUNT 3108982 MCH 32.5 pg 3 Unknown COMPLETE BLOOD COUNT 2748023 MCHC 34.1 g/dL 3 Unknown COMPLETE BLOOD COUNT 3435981 PLT 346 10e9/L 03/05/20 13 Unknown COMPLETE BLOOD COUNT 1038175 MPV 9.5 fL 3 Unknown COMPLETE BLOOD COUNT 5724148 CADEN % 67.6 % 3 Unknown COMPLETE BLOOD COUNT 3401542 LY % 22.1 % 3 Unknown COMPLETE BLOOD COUNT 5456610 MON % 6.6 % 3 Unknown COMPLETE BLOOD COUNT 0456917 EOS % 3.3 % 3 Unknown COMPLETE BLOOD COUNT 5868450 BASO % 0.4 % 3 Unknown COMPLETE BLOOD COUNT 2452935 RDW 14.0 % 3 Unknown COMPLETE BLOOD COUNT 2240006 ABS CADEN 8.59 10e9/L 013 Unknown COMPLETE BLOOD COUNT 5079912 ABS LYMPH 2.81 10e9/L 013 Unknown COMPLETE BLOOD COUNT 2368659 ABS MONO 0.84 10e9/L 013 Unknown COMPLETE BLOOD COUNT [id number] ABS EOS 0.42 10e9/L 013 Unknown COMPLETE BLOOD COUNT [id number] ABS BASO 0.05 10e9/L 013 Unknown COMPLETE BLOOD COUNT 9057457 RDW-SD 46.0 fL 03/05/201 3 Unknown FREE T4 54875 FREE T4 1.14 NG/DL 03/05/2013 Unknown COMPREHENSIVE METABOLIC 00600 AST 17 U/L 2012 Unknown COMPREHENSIVE METABOLIC 33091 ALT 12 IU/L 2012 Unknown COMPREHENSIVE METABOLIC 53290 BUN 24 MG/DL 2012 Unknown COMPREHENSIVE METABOLIC 25399 ALBUMIN 4.2 GM/DL 2012 Unknown COMPREHENSIVE METABOLIC 76624 CHLORIDE 93 MMOL/L 2012 Unknown COMPREHENSIVE METABOLIC 42691 BILI TOT 0.5 MG/DL 2012 Unknown COMPREHENSIVE METABOLIC 14888 ALK PHOS 75 U/L 2012 Unknown COMPREHENSIVE METABOLIC 00802 SODIUM 141 MMOL/L 03/05 Unknown COMPREHENSIVE METABOLIC 72052 CREATININE 1.36 MG/DL 02/09 Unknown COMPREHENSIVE METABOLIC 91947 CALCIUM 9.2 MG/DL 2012 Unknown COMPREHENSIVE METABOLIC 05695 POTASSIUM 3.1 MMOL/L 03/05 Unknown COMPREHENSIVE METABOLIC 99937 PROT TOT 6.9 GM/DL 2012 Unknown COMPREHENSIVE METABOLIC 97037 Glucose 123 MG/DL 2012 Unknown COMPREHENSIVE METABOLIC 32437 BICARB 36 MMOL/L 2012 Unknown COMPREHENSIVE METABOLIC 30565 ANION GAP 12 MEQ/L 2012 Unknown GFR CALC 0040300 GFR AA 51.0L ML/MIN 03/05/2013 Unknow n GFR CALC 5427877 GFR NON-AA 42.0L ML/MIN 03/05/2013 Unkno wn COMPREHENSIVE METABOLIC 95817 AST 14 U/L 2012 Unknown COMPREHENSIVE METABOLIC 04410 ALT 11 IU/L 2012 Unknown COMPREHENSIVE METABOLIC 03188 BUN 16 MG/DL 2012 Unknown COMPREHENSIVE METABOLIC 49071 ALBUMIN 4.2 GM/DL 2012 Unknown COMPREHENSIVE METABOLIC 50950 CHLORIDE 98 MMOL/L 2012 Unknown COMPREHENSIVE METABOLIC 45280 BILI TOT 0.4 MG/DL 2012 Unknown COMPREHENSIVE METABOLIC 00395 ALK PHOS 77 U/L 2012 Unknown COMPREHENSIVE METABOLIC 55455 SODIUM 139 MMOL/L 09/25 Unknown COMPREHENSIVE METABOLIC 26946 CREATININE 0.86 MG/DL 09/10 Unknown COMPREHENSIVE METABOLIC 20140 CALCIUM 9.5 MG/DL 2012 Unknown COMPREHENSIVE METABOLIC 97359 POTASSIUM 3.8 MMOL/L 09/25 Unknown COMPREHENSIVE METABOLIC 56079 PROT TOT 6.8 GM/DL 2012 Unknown COMPREHENSIVE METABOLIC 42615 Glucose 91 MG/DL 2012 Unknown COMPREHENSIVE METABOLIC 77706 BICARB 32 MMOL/L 2012 Unknown COMPREHENSIVE METABOLIC 26958 ANION GAP 9 MEQ/L 2012 Unknown FREE T4 [id number] FREE T4 0.98 NG/DL 09/25/2012 Unknown THYROID STIMULATING HORMONE 15145 TSH 1.736 uIU/ML 09/25/2012 Unknown C-REACTIVE PROTEIN (CRP) QUANT 69236 CRP 2.3 MG/DL 09/25/2012 Unknown COMPLETE BLOOD COUNT [id number] WBC 11.9 10e9/L 013 Unknown COMPLETE BLOOD COUNT [id number] RBC 4.87 10e12/L 2012 Unknown COMPLETE BLOOD COUNT [id number] HGB 15.1 g/dL 3 Unknown COMPLETE BLOOD COUNT [id number] HCT DET 44.8 % 3 Unknown COMPLETE BLOOD COUNT [id number] MCV 92.0 fL 3 Unknown COMPLETE BLOOD COUNT [id number] MCH 31.0 pg 3 Unknown COMPLETE BLOOD COUNT [id number] MCHC 33.7 g/dL 3 Unknown COMPLETE BLOOD COUNT [id number] PLT 343 10e9/L 09/25/19 13 Unknown COMPLETE BLOOD COUNT [id number] MPV 9.0 fL 3 Unknown COMPLETE BLOOD COUNT [id number] CADEN % 68.2 % 3 Unknown COMPLETE BLOOD COUNT [id number] LY % 22.4 % 3 Unknown COMPLETE BLOOD COUNT [id number] MON % 6.4 % 3 Unknown COMPLETE BLOOD COUNT [id number] EOS % 2.7 % 3 Unknown COMPLETE BLOOD COUNT [id number] BASO % 0.3 % 3 Unknown COMPLETE BLOOD COUNT [id number] RDW 13.8 % 3 Unknown COMPLETE BLOOD COUNT [id number] ABS CADEN 8.12 10e9/L 013 Unknown COMPLETE BLOOD COUNT [id number] ABS LYMPH 2.67 10e9/L 013 Unknown COMPLETE BLOOD COUNT [id number] ABS MONO 0.76 10e9/L 013 Unknown COMPLETE BLOOD COUNT [id number] ABS EOS 0.32 10e9/L 013 Unknown COMPLETE BLOOD COUNT [id number] ABS BASO 0.04 10e9/L 013 Unknown COMPLETE BLOOD COUNT [id number] RDW-SD 45.6 fL 3 Unknown GFR CALC [id number] GFR AA >60 ML/MIN 09/25/2012 Unknown GFR CALC [id number] GFR NON-AA >60 ML/MIN 09/25/2012 Unknown ERYTHROCYTE SEDIMENTATION RATE 86548 ESR 19 MM/HR 05/06/2012 Unknown VITAMIN B 12 FOLIC ACID 91321|25223 VIT B 12 922 PG/ML 04/11 Unknown VITAMIN B 12 FOLIC ACID 48950|18735 FOLIC ACID 13.6 NG/ML Unknown URIC ACID 79158 URIC ACID 7.8 MG/DL 05/06/2012 Unknown COMPLETE BLOOD COUNT 07621 WBC 11.9 10e9/L 012 Unknown COMPLETE BLOOD COUNT 36552 RBC 5.30 10e12/L 2011 Unknown COMPLETE BLOOD COUNT 22945 HGB 16.6 g/dL 2 Unknown COMPLETE BLOOD COUNT 30669 HCT DET 47.2 % 2 Unknown COMPLETE BLOOD COUNT 77846 MCV 89.1 fL 2 Unknown COMPLETE BLOOD COUNT 09188 MCH 31.3 pg 2 Unknown COMPLETE BLOOD COUNT 90933 MCHC 35.2 g/dL 2 Unknown COMPLETE BLOOD COUNT 19506 PLT 362 10e9/L 05/06/20 12 Unknown COMPLETE BLOOD COUNT 93966 MPV 9.4 fL 2 Unknown COMPLETE BLOOD COUNT 15974 CADEN % 68.2 % 2 Unknown COMPLETE BLOOD COUNT 62715 LY % 22.0 % 2 Unknown COMPLETE BLOOD COUNT 47701 MON % 6.9 % 2 Unknown COMPLETE BLOOD COUNT 98519 EOS % 2.6 % 2 Unknown COMPLETE BLOOD COUNT 88777 BASO % 0.3 % 2 Unknown COMPLETE BLOOD COUNT 32225 RDW 12.8 % 2 Unknown COMPLETE BLOOD COUNT 75211 ABS CADEN 8.12 10e9/L 012 Unknown COMPLETE BLOOD COUNT 29303 ABS LYMPH 2.62 10e9/L 012 Unknown COMPLETE BLOOD COUNT 44020 ABS MONO 0.82 10e9/L 012 Unknown COMPLETE BLOOD COUNT 26185 ABS EOS 0.31 10e9/L 012 Unknown COMPLETE BLOOD COUNT 89429 ABS BASO 0.04 10e9/L 012 Unknown COMPLETE BLOOD COUNT 70170 RDW-SD 41.5 fL 2 Unknown GFR CALC 2127803 GFR AA >60 ML/MIN 05/06/2012 Unknown GFR CALC 7790103 GFR NON-AA 58.0L ML/MIN 05/06/2012 Unkno wn FREE T4 47707 FREE T4 1.15 NG/DL 05/06/2012 Unknown THYROID STIMULATING HORMONE 46864 TSH 1.568 uIU/ML 05/06/2012 Unknown COMPREHENSIVE METABOLIC 60644 AST 20 U/L 2011 Unknown COMPREHENSIVE METABOLIC 17756 ALT 12 IU/L 2011 Unknown COMPREHENSIVE METABOLIC 77880 BUN 20 MG/DL 2011 Unknown COMPREHENSIVE METABOLIC 34630 ALBUMIN 4.5 GM/DL 2011 Unknown COMPREHENSIVE METABOLIC 74633 CHLORIDE 91 MMOL/L 2011 Unknown COMPREHENSIVE METABOLIC 75206 BILI TOT 0.4 MG/DL 2011 Unknown COMPREHENSIVE METABOLIC 32550 ALK PHOS 73 U/L 2011 Unknown COMPREHENSIVE METABOLIC 48520 SODIUM 139 MMOL/L 05/06 Unknown COMPREHENSIVE METABOLIC 84451 CREATININE 1.02 MG/DL 04/11 Unknown COMPREHENSIVE METABOLIC 80631 CALCIUM 9.7 MG/DL 2011 Unknown COMPREHENSIVE METABOLIC 92123 POTASSIUM 3.1 MMOL/L 05/06 Unknown COMPREHENSIVE METABOLIC 86458 PROT TOT 7.3 GM/DL 2011 Unknown COMPREHENSIVE METABOLIC 82065 Glucose 118 MG/DL 2011 Unknown COMPREHENSIVE METABOLIC 59700 BICARB 33 MMOL/L 2011 Unknown COMPREHENSIVE METABOLIC 69313 ANION GAP 15 MEQ/L 2011 Unknown Procedures Procedure Codes Date COMPREHEN METABOLIC PANEL CPT-4: 26867 02/12/2020 A1C HPLC CPT-4: 66864 02/12/2020 ROUTINE VENIPUNCTURE CPT-4: 58142 09/29/2019 URINALYSIS NONAUTO W/O SCOPE CPT-4: 73452 09/29/2019 COMPREHEN METABOLIC PANEL CPT-4: 14821 09/29/2019 LIPID PANEL CPT-4: 42592 09/29/2019 A1C HPLC CPT-4: 69825 09/29/2019 ASSAY OF FREE THYROXINE CPT-4: 15328 09/29/2019 ASSAY THYROID STIM HORMONE CPT-4: 37531 09/29/2019 COMPLETE CBC W/AUTO DIFF WBC CPT-4: 48992 09/29/2019 URINALYSIS NONAUTO W/O SCOPE CPT-4: 90348 09/30/2018 MICROALBUMIN QUANTITATIVE CPT-4: 56418 09/30/2018 CEFTRIAXONE SODIUM INJECTION CPT-4: J0696 06/19/2018 THER/PROPH/DIAG INJ SC/IM CPT-4: 06509 06/19/2018 CEFTRIAXONE SODIUM INJECTION CPT-4: J0696 06/17/2018 THER/PROPH/DIAG INJ SC/IM CPT-4: 47340 06/17/2018 THER/PROPH/DIAG INJ SC/IM CPT-4: 26410 05/16/2018 KETOROLAC TROMETHAMINE INJ CPT-4: J1885 05/16/2018 ONDANSETRON HCL INJECTION CPT-4: J2405 05/16/2018 THER/PROPH/DIAG INJ SC/IM CPT-4: 73386 05/16/2018 ROUTINE VENIPUNCTURE CPT-4: 01003 03/20/2018 COMPREHEN METABOLIC PANEL CPT-4: 76631 03/20/2018 DEXAMETHASONE SODIUM PHOS CPT-4: J1100 02/11/2018 THER/PROPH/DIAG INJ SC/IM CPT-4: 08564 02/11/2018 TRIAMCINOLONE ACET INJ NOS CPT-4: J3301 02/11/2018 CEFTRIAXONE SODIUM INJECTION CPT-4: J0696 02/01/2018 THER/PROPH/DIAG INJ SC/IM CPT-4: 37879 02/01/2018 CEFTRIAXONE SODIUM INJECTION CPT-4: J0696 01/30/2018 THER/PROPH/DIAG INJ SC/IM CPT-4: 28693 01/30/2018 ROUTINE VENIPUNCTURE CPT-4: 12668 12/10/2017 ASSAY OF FREE THYROXINE CPT-4: 17251 12/10/2017 ASSAY THYROID STIM HORMONE CPT-4: 25651 12/10/2017 COMPREHEN METABOLIC PANEL CPT-4: 67721 12/10/2017 COMPLETE CBC W/AUTO DIFF WBC CPT-4: 36962 12/10/2017 LIPID PANEL CPT-4: 03741 12/10/2017 A1C HPLC CPT-4: 45229 12/10/2017 CEFTRIAXONE SODIUM INJECTION CPT-4: J0696 12/10/2017 THER/PROPH/DIAG INJ SC/IM CPT-4: 54269 12/10/2017 CEFTRIAXONE SODIUM INJECTION CPT-4: J0696 12/07/2017 THER/PROPH/DIAG INJ SC/IM CPT-4: 79034 12/07/2017 DEXAMETHASONE SODIUM PHOS CPT-4: J1100 12/07/2017 THER/PROPH/DIAG INJ SC/IM CPT-4: 06443 12/07/2017 CEFTRIAXONE SODIUM INJECTION CPT-4: J0696 10/08/2017 THER/PROPH/DIAG INJ SC/IM CPT-4: 23095 10/08/2017 CEFTRIAXONE SODIUM INJECTION CPT-4: J0696 09/21/2017 THER/PROPH/DIAG INJ SC/IM CPT-4: 53858 09/21/2017 CEFTRIAXONE SODIUM INJECTION CPT-4: J0696 09/20/2017 THER/PROPH/DIAG INJ SC/IM CPT-4: 29162 09/20/2017 REMOVAL OF NAIL PLATE CPT-4: 10630 08/29/2017 THER/PROPH/DIAG INJ SC/IM CPT-4: 70370 08/29/2017 TRIAMCINOLONE ACET INJ NOS CPT-4: J3301 08/29/2017 CEFTRIAXONE SODIUM INJECTION CPT-4: J0696 08/29/2017 THER/PROPH/DIAG INJ SC/IM CPT-4: 17894 08/29/2017 DESTRUCT PREMALG LESION (Cryosurgery) CPT-4: 35851 ROUTINE VENIPUNCTURE CPT-4: 71590 06/27/2017 ASSAY OF FREE THYROXINE CPT-4: 15971 06/27/2017 ASSAY THYROID STIM HORMONE CPT-4: 60562 06/27/2017 COMPREHEN METABOLIC PANEL CPT-4: 72573 06/27/2017 COMPLETE CBC W/AUTO DIFF WBC CPT-4: 00237 06/27/2017 EXC TR-EXT B9+REECE 0.5 CM< CPT-4: 44013 01/24/2017 THER/PROPH/DIAG INJ SC/IM CPT-4: 22116 08/02/2016 DEXAMETHASONE SODIUM PHOS CPT-4: J1100 08/02/2016 DESTRUCT PREMALG LESION (Cryosurgery) CPT-4: 08249 EXC TR-EXT B9+REECE 0.5 CM< CPT-4: 07290 08/01/2016 AEROBIC WOUND CULTURE & STN CPT-4: 55298 07/06/2016 CEFTRIAXONE SODIUM INJECTION CPT-4: J0696 05/25/2016 THER/PROPH/DIAG INJ SC/IM CPT-4: 35436 05/25/2016 THER/PROPH/DIAG INJ SC/IM CPT-4: 55578 04/26/2016 DEXAMETHASONE SODIUM PHOS CPT-4: J1100 04/26/2016 CEFTRIAXONE SODIUM INJECTION CPT-4: J0696 04/26/2016 THER/PROPH/DIAG INJ SC/IM CPT-4: 90779 04/26/2016 THER/PROPH/DIAG INJ SC/IM CPT-4: 03739 02/09/2016 TRIAMCINOLONE ACET INJ NOS CPT-4: J3301 02/09/2016 URINALYSIS NONAUTO W/O SCOPE CPT-4: 11112 01/24/2016 URINE CULTURE/ COLONY COUNT CPT-4: 15328 01/24/2016 THER/PROPH/DIAG INJ SC/IM CPT-4: 13832 12/08/2015 TRIAMCINOLONE ACET INJ NOS CPT-4: J3301 12/08/2015 THER/PROPH/DIAG INJ SC/IM CPT-4: 07261 10/07/2015 TRIAMCINOLONE ACET INJ NOS CPT-4: J3301 10/07/2015 DESTRUCT PREMALG LESION (Cryosurgery) CPT-4: 99106 THER/PROPH/DIAG INJ SC/IM CPT-4: 92111 03/16/2015 METHYLPREDNISOLONE 40 MG INJ CPT-4: J1030 03/16/2015 DESTRUCT PREMALG LESION (Cryosurgery) CPT-4: 85635 THER/PROPH/DIAG INJ SC/IM CPT-4: 63679 09/11/2014 METHYLPREDNISOLONE 40 MG INJ CPT-4: J1030 09/11/2014 TRIAMCINOLONE ACET INJ NOS CPT-4: J3301 09/11/2014 CEFTRIAXONE SODIUM INJECTION CPT-4: J0696 09/11/2014 THER/PROPH/DIAG INJ SC/IM CPT-4: 91450 09/11/2014 ROUTINE VENIPUNCTURE CPT-4: 39103 08/27/2014 COMPREHEN METABOLIC PANEL CPT-4: 44908 08/27/2014 COMPLETE CBC W/AUTO DIFF WBC CPT-4: 21015 08/27/2014 LIPID PANEL CPT-4: 02678 08/27/2014 ROUTINE VENIPUNCTURE CPT-4: 06219 07/21/2014 ASSAY OF AMYLASE CPT-4: 77084 07/21/2014 ASSAY OF LIPASE CPT-4: 11464 07/21/2014 THER/PROPH/DIAG INJ SC/IM CPT-4: 00132 07/15/2014 TRIAMCINOLONE ACET INJ NOS CPT-4: J3301 07/15/2014 ROUTINE VENIPUNCTURE CPT-4: 61181 05/14/2014 ASSAY OF FREE THYROXINE CPT-4: 33064 05/14/2014 ASSAY THYROID STIM HORMONE CPT-4: 94041 05/14/2014 COMPREHEN METABOLIC PANEL CPT-4: 12568 05/14/2014 COMPLETE CBC W/AUTO DIFF WBC CPT-4: 26014 05/14/2014 LIPID PANEL CPT-4: 78002 05/14/2014 CEFTRIAXONE SODIUM INJECTION CPT-4: J0696 04/21/2014 THER/PROPH/DIAG INJ SC/IM CPT-4: 09848 04/21/2014 THER/PROPH/DIAG INJ SC/IM CPT-4: 70063 04/21/2014 TRIAMCINOLONE ACET INJ NOS CPT-4: J3301 04/21/2014 THER/PROPH/DIAG INJ SC/IM CPT-4: 21395 03/04/2014 METHYLPREDNISOLONE 40 MG INJ CPT-4: J1030 03/04/2014 TRIAMCINOLONE ACET INJ NOS CPT-4: J3301 03/04/2014 CEFTRIAXONE SODIUM INJECTION CPT-4: J0696 03/04/2014 THER/PROPH/DIAG INJ SC/IM CPT-4: 63140 03/04/2014 TDAP VACCINE 7 YRS/> IM CPT-4: 99560 02/27/2014 IMMUNIZATION ADMIN CPT-4: 69219 02/27/2014 DESTRUCT PREMALG LESION (Cryosurgery) CPT-4: 80676 DESTRUCT PREMALG LES 2-14 CPT-4: 63855 01/13/2014 THER/PROPH/DIAG INJ SC/IM CPT-4: 43196 10/21/2013 METHYLPREDNISOLONE 40 MG INJ CPT-4: J1030 10/21/2013 TRIAMCINOLONE ACET INJ NOS CPT-4: J3301 10/21/2013 CEFTRIAXONE SODIUM INJECTION CPT-4: J0696 08/27/2013 THER/PROPH/DIAG INJ SC/IM CPT-4: 47506 08/27/2013 THER/PROPH/DIAG INJ SC/IM CPT-4: 31952 08/27/2013 METHYLPREDNISOLONE 40 MG INJ CPT-4: J1030 08/27/2013 TRIAMCINOLONE ACET INJ NOS CPT-4: J3301 08/27/2013 THER/PROPH/DIAG INJ SC/IM CPT-4: 83967 06/23/2013 METHYLPREDNISOLONE 40 MG INJ CPT-4: J1030 06/23/2013 TRIAMCINOLONE ACET INJ NOS CPT-4: J3301 06/23/2013 THER/PROPH/DIAG INJ SC/IM CPT-4: 90328 05/26/2013 METHYLPREDNISOLONE 40 MG INJ CPT-4: J1030 05/26/2013 TRIAMCINOLONE ACET INJ NOS CPT-4: J3301 05/26/2013 ROUTINE VENIPUNCTURE CPT-4: 35646 03/05/2013 ASSAY OF FREE THYROXINE CPT-4: 88534 03/05/2013 ASSAY THYROID STIM HORMONE CPT-4: 95932 03/05/2013 COMPREHEN METABOLIC PANEL CPT-4: 88447 03/05/2013 COMPLETE CBC W/AUTO DIFF WBC CPT-4: 16103 03/05/2013 A1C GLYCOSYLATED HEMOGLOBIN TEST CPT-4: 72658 013 DRAIN/INJECT JOINT/BURSA CPT-4: 87842 12/04/2012 METHYLPREDNISOLONE 40 MG INJ CPT-4: J1030 12/04/2012 TRIAMCINOLONE ACET INJ NOS CPT-4: J3301 12/04/2012 CEFTRIAXONE SODIUM INJECTION CPT-4: J0696 11/21/2012 THER/PROPH/DIAG INJ SC/IM CPT-4: 20841 11/21/2012 THER/PROPH/DIAG INJ SC/IM CPT-4: 26323 10/14/2012 METHYLPREDNISOLONE 40 MG INJ CPT-4: J1030 10/14/2012 TRIAMCINOLONE ACET INJ NOS CPT-4: J3301 10/14/2012 URINALYSIS NONAUTO W/O SCOPE CPT-4: 01076 09/27/2012 ROUTINE VENIPUNCTURE CPT-4: 68925 09/25/2012 ASSAY OF FREE THYROXINE CPT-4: 62387 09/25/2012 ASSAY THYROID STIM HORMONE CPT-4: 39421 09/25/2012 COMPREHEN METABOLIC PANEL CPT-4: 65433 09/25/2012 COMPLETE CBC W/AUTO DIFF WBC CPT-4: 73444 09/25/2012 C-REACTIVE PROTEIN CPT-4: 24352 09/25/2012 THER/PROPH/DIAG INJ SC/IM CPT-4: 32751 08/29/2012 METHYLPREDNISOLONE 40 MG INJ CPT-4: J1030 08/29/2012 TRIAMCINOLONE ACET INJ NOS CPT-4: J3301 08/29/2012 DESTRUCT PREMALG LESION (Cryosurgery) CPT-4: 07579 THER/PROPH/DIAG INJ SC/IM CPT-4: 51834 05/06/2012 METHYLPREDNISOLONE 40 MG INJ CPT-4: J1030 05/06/2012 TRIAMCINOLONE ACET INJ NOS CPT-4: J3301 05/06/2012 VITAMIN B 12 FOLIC ACID CPT-4: 93373|03648 05/06/2012 RBC SED RATE AUTOMATED CPT-4: 20792 05/06/2012 ROUTINE VENIPUNCTURE CPT-4: 43302 05/06/2012 ASSAY OF FREE THYROXINE CPT-4: 69657 05/06/2012 ASSAY THYROID STIM HORMONE CPT-4: 43055 05/06/2012 COMPREHEN METABOLIC PANEL CPT-4: 69794 05/06/2012 COMPLETE CBC W/AUTO DIFF WBC CPT-4: 03273 05/06/2012 ASSAY OF BLOOD/URIC ACID CPT-4: 18215 05/06/2012 THER/PROPH/DIAG INJ SC/IM CPT-4: 33748 03/19/2012 KETOROLAC TROMETHAMINE INJ CPT-4: J1885 03/19/2012 KETOROLAC TROMETHAMINE INJ CPT-4: J1885 01/30/2012 THER/PROPH/DIAG INJ SC/IM CPT-4: 83866 01/30/2012 PROMETHAZINE HCL INJECTION CPT-4: J2550 01/30/2012 THER/PROPH/DIAG INJ SC/IM CPT-4: 42332 01/24/2012 METHYLPREDNISOLONE 40 MG INJ CPT-4: J1030 01/24/2012 TRIAMCINOLONE ACET INJ NOS CPT-4: J3301 01/24/2012 THER/PROPH/DIAG INJ SC/IM CPT-4: 93460 09/13/2011 KETOROLAC TROMETHAMINE INJ CPT-4: J1885 09/13/2011 THER/PROPH/DIAG INJ SC/IM CPT-4: 25852 09/13/2011 PROMETHAZINE HCL INJECTION CPT-4: J2550 09/13/2011 CEFTRIAXONE SODIUM INJECTION CPT-4: J0696 07/20/2011 THER/PROPH/DIAG INJ SC/IM CPT-4: 86068 07/20/2011 THER/PROPH/DIAG INJ SC/IM CPT-4: 65459 07/20/2011 METHYLPREDNISOLONE INJECTION CPT-4: J2930 07/20/2011 URINALYSIS NONAUTO W/O SCOPE CPT-4: 97482 05/09/2011 CEFTRIAXONE SODIUM INJECTION CPT-4: J0696 05/09/2011 THER/PROPH/DIAG INJ SC/IM CPT-4: 71082 05/09/2011 THER/PROPH/DIAG INJ SC/IM CPT-4: 78340 05/09/2011 PROMETHAZINE HCL INJECTION CPT-4: J2550 05/09/2011 HYDRATION IV INFUSION INIT CPT-4: 85855 05/09/2011 DESTRUCT PREMALG LESION (Cryosurgery) CPT-4: 70745 DESTRUCT PREMALG LES 2-14 CPT-4: 09511 07/19/2010 REMOVAL OF SKIN TAGS <W/15 CPT-4: 43292 05/30/2010 THER/PROPH/DIAG INJ SC/IM CPT-4: 89759 04/05/2010 CEFTRIAXONE SODIUM INJECTION CPT-4: J0696 04/05/2010 TRIAMCINOLONE ACET INJ NOS CPT-4: J3301 04/05/2010 METHYLPREDNISOLONE 40 MG INJ CPT-4: J1030 04/05/2010 THER/PROPH/DIAG INJ SC/IM CPT-4: 12258 04/05/2010 TRIAMCINOLONE ACET INJ NOS CPT-4: J3301 03/09/2010 METHYLPREDNISOLONE 40 MG INJ CPT-4: J1030 03/09/2010 THER/PROPH/DIAG INJ SC/IM CPT-4: 68415 03/09/2010 THER/PROPH/DIAG INJ SC/IM CPT-4: 27669 03/09/2010 CEFTRIAXONE SODIUM INJECTION CPT-4: J0696 03/09/2010 [...] 1: 132/80 Code: 8480-6 BMI: 35.8 Code: 51035-1 Heart Rate 1: 88 bpm Height: 5'4" Respiratory Rate: 20 bpm SpO2: 95% Tempera ture: 36.9 (C) / 98.5 (F) Weight: 210 lbs 05/28/2019 Blood Pressure 1: 126/82 Code: 8480-6 BMI: 35.0 Code: 97059-2 Heart Rate 1: 88 bpm Height: 5'4" [...] 1: 128/90 Code: 8480-6 BMI: 37.2 Code: 67683-9 Heart Rate 1: 84 bpm Height: 5'4" Respiratory Rate: 20 bpm SpO2: 95% Tempera ture: 36.6 (C) / 97.8 (F) Weight: 217 lbs 08/27/2018 Blood Pressure 1: 128/88 Code: 8480-6 BMI: 38.3 Code: 75541-8 Heart Rate 1: 84 bpm Height: 5'4" [...] 1: 119/72 Code: 8480-6 BMI: 37.4 Code: 69213-8 Heart Rate 1: 82 bpm Height: 5'4" Respiratory Rate: 12 bpm SpO2: 94% Tempera ture: 35.2 (C) / 95.4 (F) Weight: 218 lbs 12/18/2017 Blood Pressure 1: 128/86 Code: 8480-6 BMI: 37.8 Code: 81893-9 Heart Rate 1: 84 bpm Height: 5'4" [...] 1: 128/82 Code: 8480-6 BMI: 35.5 Code: 51871-7 Heart Rate 1: 84 bpm Height: 5'4" [...] 1: 128/82 Code: 8480-6 BMI: 30.2 Code: 76458-0 Heart Rate 1: 80 bpm Height: 5'4" [...] 1: 128/86 Code: 8480-6 BMI: 32.8 Code: 19846-2 Heart Rate 1: 66 bpm Height: 5'4" Respiratory Rate: 18 bpm Temperature: 36 .3 (C) / 97.3 (F) Weight: 191 lbs 06/23/2013 Blood Pressure 1: 132/94 Code: 8480-6 BMI: 34.0 Code: 45738-7 Heart Rate 1: 84 bpm Height: 5'4" Respiratory Rate: 20 bpm Temperature: 36 .8 (C) / 98.2 (F) Weight: 198 lbs 05/26/2013 Blood Pressure 1: 114/80 Code: 8480-6 BMI: 35.0 Code: 33377-8 Heart Rate 1: 80 bpm Height: 5'4" Respiratory Rate: 20 bpm Temperature: 36 .4 (C) / 97.6 (F) Weight: 204 lbs 04/16/2013 Blood Pressure 1: 114/82 Code: 8480-6 BMI: 36.7 Code: 30288-1 Heart Rate 1: 84 bpm Height: 5'4" Respiratory Rate: 20 bpm Temperature: 36 .7 (C) / 98.0 (F) Weight: 214 lbs 03/05/2013 Blood Pressure 1: 136/90 Code: 8480-6 BMI: 37.1 Code: 46271-3 Heart Rate 1: 84 bpm Height: 5'4" [...] 1: 168/114 Code: 8480-6 BMI: 36.2 Code: 80486-4 Heart Rate 1: 104 bpm Height: 5'4" Respiratory Rate: 20 bpm Temperature: 36 .8 (C) / 98.2 (F) Weight: 211 lbs 11/22/2012 Blood Pressure 1: 128/90 Code: 8480-6 Heart Rate 1: 88 bpm Respiratory Rate: 20 bpm SpO2: 96% Temperature: 36.8 (C) / 98.2 (F) 11/21/2012 Blood Pressure 1: 146/100 Code: 8480-6 BMI: 35.7 Code: 40499-0 Heart Rate 1: 96 bpm Height: 5'4" [...] 1: 138/100 Code: 8480-6 BMI: 35.7 Code: 39413-5 Heart Rate 1: 96 bpm Height: 5'4" Respiratory Rate: 20 bpm Temperature: 36 .8 (C) / 98.2 (F) Weight: 208 lbs 05/06/2012 Blood Pressure 1: 154/102 Code: 8480-6 BMI: 34.7 Code: 50399-5 Heart Rate 1: 116 bpm Height: 5'4" Respiratory Rate: 20 bpm Temperature: 36 .8 (C) / 98.2 (F) Weight: 202 lbs 04/03/2012 Blood Pressure 1: 134/94 Code: 8480-6 BMI: 34.8 Code: 14578-3 Heart Rate 1: 108 bpm Height: 5'4" Respiratory Rate: 20 bpm Temperature: 36 .8 (C) / 98.2 (F) Weight: 203 lbs 03/19/2012 Blood Pressure 1: 148/106 Code: 8480-6 BMI: 35.0 Code: 85908-7 Heart Rate 1: 100 bpm Height: 5'4" Respiratory Rate: 20 bpm Temperature: 36 .6 (C) / 97.9 (F) Weight: 204 lbs 02/22/2012 Blood Pressure 1: 146/94 Code: 8480-6 He art Rate 1: 88 bpm 02/21/2012 Blood Pressure 1: 172/120 Code: 8480-6 B lood Pressure 2: 152/106 Code: 8480-6 Heart Rate 1: 116 bpm 02/20/2012 Blood Pressure 1: 160/100 Code: 8480-6 BMI: 32.0 Code: 37857-2 Heart Rate 1: 84 bpm Height: 5'7" Temperature: 36.5 (C) / 97.7 (F) Weight: 204 lbs 01/30/2012 Blood Pressure 1: 152/110 Code: 8480-6 BMI: 32.0 Code: 75549-1 Heart Rate 1: 116 bpm Height: 5'7" Respiratory Rate: 20 bpm Temperature: 37 .0 (C) / 98.6 (F) Weight: 204 lbs 01/24/2012 Blood Pressure 1: 146/100 Code: 8480-6 BMI: 32.0 Code: 75635-5 Heart Rate 1: 100 bpm Height: 5'7" Respiratory Rate: 20 bpm Temperature: 36 .7 (C) / 98.0 (F) Weight: 204 lbs 01/10/2012 Blood Pressure 1: 156/94 Code: 8480-6 BMI: 32.6 Code: 46964-1 Heart Rate 1: 72 bpm Height: 5'7" Respiratory Rate: 20 bpm Temperature: 36 .8 (C) / 98.2 (F) Weight: 208 lbs 12/11/2011 Blood Pressure 1: 146/100 Code: 8480-6 Heart Rat e 1: 116 bpm Height: 5'7" Respiratory Rate: 20 bpm Temperature: 36.9 (C) / 98.4 (F) We ight: 11/09/2011 Blood Pressure 1: 148/96 Code: 8480-6 BMI: 32.1 Code: 35251-2 Heart Rate 1: 116 bpm Height: 5'7" Respiratory Rate: 20 bpm Temperature: 36 .7 (C) / 98.0 (F) Weight: 205 lbs 09/13/2011 Blood Pressure 1: 126/88 Code: 8480-6 Heart Rate 1: 88 bpm Height: 5'7" Respiratory Rate: 20 bpm Temperature: 36.9 (C) / 98.4 (F) We ight: 08/31/2011 Blood Pressure 1: 118/82 Code: 8480-6 BMI: 32.0 Code: 87602-3 Heart Rate 1: 80 bpm Height: 5'7" Temperature: 36.4 (C) / 97.6 (F) Weight: 204 lbs 07/06/2011 Blood Pressure 1: 128/86 Code: 8480-6 BMI: 30.9 Code: 88561-8 Heart Rate 1: 92 bpm Height: 5'7" Respiratory Rate: 20 bpm Temperature: 36 .9 (C) / 98.4 (F) Weight: 197 lbs 06/06/2011 Blood Pressure 1: 112/74 Code: 8480-6 BMI: 31.0 Code: 90485-7 Heart Rate 1: 72 bpm Height: 5'7" [...] 1: 128/92 Code: 8480-6 BMI: 33.6 Code: 24014-3 Heart Rate 1: 104 bpm Height: 5'4" [...] Check-up Encounters Encounter Performer Location Codes Date ([id number]) OFFICE/OUTPATIENT VISIT EST Diagnosis: Cellulitis of left foot[ICD10: L03.116] [facility]ía Elena [facility] CPT-4: 29454 03/04/2020 ([id number]) OFFICE/OUTPATIENT VISIT EST Diagnosis: Blister (nonthermal), right foot, initial encounter[ICD10: S90.821A] Diagnosis: Type 2 diabetes mellitus with hyperglycemia[ICD10: E11.65] Diagnosis: Lower extremity edema[ICD10: R60.0] Kathleen Hicks [facility] CPT-4: 54094 02/12/2020 ([id number]) OFFICE/OUTPATIENT VISIT EST Diagnosis: Essential (primary) hypertension[ICD10: I10] Diagnosis: Type 2 diabetes mellitus with hyperglycemia[ICD10: E11.65] Diagnosis: Allergic rhinitis[ICD10: J30.9] María Elena APPIAH DO [facility] CPT-4: 58965 01/13/2020 ([id number]) OFFICE/OUTPATIENT VISIT EST Diagnosis: Type 2 diabetes mellitus with hyperglycemia[ICD10: E11.65] María Elena APPIAH DO [facility] CPT-4: 70036 11/20/2019 ([id number]) OFFICE/OUTPATIENT VISIT EST Diagnosis: Ingrowing nail[ICD10: L60.0] Diagnosis: Type 2 diabetes mellitus with hyperglycemia[ICD10: E11.65] Kathleen APPIAH DO [facility] CPT-4: 85157 10/07/2019 ([id number]) OFFICE/OUTPATIENT VISIT EST Diagnosis: DM w/o complication type II, uncontrolled[ICD10: E11.65] Diagnosis: Hypertriglyceridemia[ICD10: E78.1] Diagnosis: Essential hypertension[ICD10: I10] María Elenaalcides MONTEROLESLIE APPIAH [employer] CPT-4: 23657 09/30/2019 ([id number]) NURSE/OUTPATIENT VISIT EST Diagnosis: Essential (primary) hypertension[ICD10: I10] Diagnosis: Cervicalgia[ICD10: M54.2] Diagnosis: Hyperglycemia, 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: R73.9] Diagnosis: Mixed hyperlipidemia[ICD10: E78.2] María Elena Waltyesimaryjane MONTEROLESLIE TED APPIAH [employer] CPT-4: 92723 09/29/2019 ([id number]) OFFICE/OUTPATIENT VISIT EST Diagnosis: Essential (primary) hypertension[ICD10: I10] Diagnosis: Fall from bed, sequela[ICD10: W06.XXXS] María Elena Waltdawn KYLAH BRAUNALCIDES Fabiola PAPIAH [employer] CPT-4: 86515 05/28/2019 ([id number]) NURSE/OUTPATIENT VISIT EST Diagnosis: Essential (primary) hypertension[ICD10: I10] María Elenaalcides Appiah MARÍA ELENA Fabiola APPIAH DO [facility] CPT-4: 34240 05/19/2019 ([id number]) OFFICE/OUTPATIENT VISIT EST Diagnosis: Essential (primary) hypertension[ICD10: I10] Diagnosis: Type 2 diabetes mellitus with hyperglycemia[ICD10: E11.65] Diagnosis: Intervertebral disc disorders with radiculopathy, 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] Diagnosis: Hormone replacement therapy[ICD10: Z79.890] María Elena APPIAH [facility] CPT-4: 78458 01/22/2019 ([id number]) OFFICE/OUTPATIENT VISIT EST Diagnosis: Essential (primary) hypertension[ICD10: I10] Diagnosis: Type 2 diabetes mellitus with hyperglycemia[ICD10: E11.65] María Elena APPIAH [facility] CPT-4: 38361 09/30/2018 ([id number]) OFFICE/OUTPATIENT VISIT EST Diagnosis: Pain in left elbow[ICD10: M25.522] Diagnosis: Acute stress reaction[ICD10: F43.0] Diagnosis: Primary insomnia[ICD10: F51.01] Diagnosis: Abnormal weight gain[ICD10: R63.5] María Elena APPIAH [facility] CPT-4: 59333 08/27/2018 ([id number]) OFFICE/OUTPATIENT VISIT EST Diagnosis: Acute recurrent sinusitis, 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: J01.91] Diagnosis: Follicular disorder, 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: L73.9] Diagnosis: Tinea corporis[ICD10: B35.4] María Elena APPIAH [facility] CPT-4: 50442 08/09/2018 ([id number]) OFFICE/OUTPATIENT VISIT EST Diagnosis: Tinea corporis[ICD10: B35.4] Diagnosis: Anxiety disorder, 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: F41.9] Diagnosis: Menopausal and female climacteric states[ICD10: N95.1] María Elena APPIAH [facility] CPT-4: 81876 07/22/2018 ([id number]) NURSE/OUTPATIENT VISIT EST Diagnosis: Cellulitis of right toe[ICD10: L03.031] María Elena APPIAH [facility] CPT-4: 32088 06/19/2018 ([id number]) OFFICE/OUTPATIENT VISIT EST Diagnosis: Cellulitis of right toe[ICD10: L03.031] Kathleenfloyd Zuniga KYLAH APPIAH [facility] CPT-4: 32796 06/17/2018 ([id number]) OFFICE/OUTPATIENT VISIT EST Diagnosis: Migraine without aura, intractable, without status migrainosus[ICD10: G43.019] Diagnosis: Zoster without complications[ICD10: B02.9] Kathleen APPIAH DO [facility] CPT-4: 15493 05/16/2018 ([id number]) OFFICE/OUTPATIENT VISIT EST Diagnosis: Cellulitis of right lower limb[ICD10: L03.115] Kathleen APPIAH DO [facility] CPT-4: 32328 03/20/2018 ([id number]) OFFICE/OUTPATIENT VISIT EST Diagnosis: Cellulitis of right lower limb[ICD10: L03.115] Kathleen APPIAH DO [facility] CPT-4: 58938 03/18/2018 ([id number]) OFFICE/OUTPATIENT VISIT EST Diagnosis: Cellulitis of right lower limb[ICD10: L03.115] Kathleen APPIAH DO [facility] CPT-4: 81506 03/15/2018 ([id number]) OFFICE/OUTPATIENT VISIT EST Diagnosis: Acute sinusitis, 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: J01.90] Kathleen APPIAH DO [facility] CPT-4: 28807 02/11/2018 ([id number]) NURSE/OUTPATIENT VISIT EST Diagnosis: Otitis media, unspecified, right ear[ICD10: H66.91] María Elena APPIAH DO [facility] CPT-4: 64467 02/01/2018 ([id number]) OFFICE/OUTPATIENT VISIT EST Diagnosis: Acute suppurative otitis media without spontaneous rupture of ear drum, left ear[ICD10: H66.002] Diagnosis: Abnormal weight gain[ICD10: R63.5] Diagnosis: Intervertebral disc disorders with radiculopathy, 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] Kathleen APPIAH DO [facility] CPT-4: 99 214 01/30/2018 ([id number]) PREV VISIT EST AGE 40-64 Diagnosis: Encounter for general adult medical examination without abnormal findings[ICD10: Z00.00] Diagnosis: Essential (primary) hypertension[ICD10: I10] Diagnosis: Mixed hyperlipidemia[ICD10: E78.2] Diagnosis: Type 2 diabetes mellitus with hyperglycemia[ICD10: E11.65] Diagnosis: 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] María Elena APPIAH DO [facility] CPT-4: 36716 12/18/2017 ([id number]) OFFICE/OUTPATIENT VISIT EST Diagnosis: Cellulitis of right toe[ICD10: L03.031] Diagnosis: Mixed hyperlipidemia[ICD10: E78.2] Diagnosis: Essential (primary) hypertension[ICD10: I10] Diagnosis: Hyperglycemia, 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: R73.9] Diagnosis: Nontoxic goiter, 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] María Elena APPIAH [facility] CPT-4: 45227 12/10/2017 ([id number]) OFFICE/OUTPATIENT VISIT EST Diagnosis: Cellulitis of right toe[ICD10: L03.031] Diagnosis: Acute sinusitis, 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: J01.90] Kathleen APPIAH DO [facility] CPT-4: 44647 12/07/2017 OFFICE/OUTPATIENT VISIT EST Diagnosis: Acute maxillary sinusitis, 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: J01.00] Kathleen APPIAH DO [facility] CPT-4: 33194 10/08/2017 ([id number]) OFFICE/OUTPATIENT VISIT EST Diagnosis: Cellulitis of left toe[ICD10: L03.032] María Elena [facility] CPT-4: 63841 09/21/2017 ([id number]) OFFICE/OUTPATIENT VISIT EST Diagnosis: Insomnia, 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: G47.00] Diagnosis: Major depressive disorder, single episode, 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: F32.9] Diagnosis: Anxiety disorder, 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: F41.9] Diagnosis: Cellulitis of left toe[ICD10: L03.032] Diagnosis: Snoring[ICD10: R06.83] Kathleen APPIAH DO 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] Diagnosis: Primary insomnia[ICD10: F51.01] Diagnosis: Other fatigue[ICD10: R53.83] María Elena ValdesJj IGNACIO GARIBAY [facility] CPT-4: 41074 04/10/2017 ([id number]) OFFICE/OUTPATIENT VISIT EST Diagnosis: Primary insomnia[ICD10: F51.01] Diagnosis: Localized edema[ICD10: R60.0] Diagnosis: 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] María Elena APPIAH DNA13 [facility] CPT-4: 12572 12/13/2016 ([id number]) OFFICE/OUTPATIENT VISIT EST Diagnosis: Primary insomnia[ICD10: F51.01] Diagnosis: Cyanosis[ICD10: R23.0] María Elena Waydawn MARÍA ELENA LucioJj CIRO Baz[facility] [employer] CPT-4: 91866 11/01/2016 ([id number]) PREV VISIT EST AGE 40-64 Diagnosis: Encounter for gynecological examination (general) (routine) without abnormal findings[ICD10: Z01.419] Diagnosis: Encounter for routine child health examination without abnormal findings[ICD10: Z00.129] María Elena Wayyesimaryjane ELLISMARÍA ELENA LucioJj IGNACIO DNA13 [facility] CPT-4: 14970 10/17/2016 ([id number]) OFFICE/OUTPATIENT VISIT EST Diagnosis: Other seasonal allergic rhinitis[ICD10: J30.2] María Elena Waltdawn MARÍA ELENA LucioJj IGNACIO GARIBAY [facility] CPT-4: 60724 10/10/2016 ([id number]) OFFICE/OUTPATIENT VISIT EST Diagnosis: Pain in left arm[ICD10: M79.602] Diagnosis: Contact with and (suspected) exposure to potentially hazardous body fluids[ICD10: Z77.21] Diagnosis: 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, 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] Diagnosis: Unspecified open wound, right foot, sequela[ICD10: S91.301S] María Elena APPIAH DNA13 [facility] CPT-4: 24952 09/19/2016 ([id number]) OFFICE/OUTPATIENT VISIT EST Diagnosis: Chronic sinusitis, 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: J32.9] Diagnosis: Allergic rhinitis due to pollen[ICD10: J30.1] María Elena APPIAH DNA13 [facility] CPT-4: 59634 08/24/2016 ([id number]) OFFICE/OUTPATIENT VISIT EST Diagnosis: Acute bronchitis, 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: J20.9] María Elena APPIAH DNA13 [facility] CPT-4: 24118 08/16/2016 ([id number]) OFFICE/OUTPATIENT VISIT EST Diagnosis: Otitis media, unspecified, right ear[ICD10: H66.91] Diagnosis: Acute bronchitis, 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: J20.9] María Elena APPIAH DNA13 [facility] CPT-4: 12715 08/10/2016 ([id number]) OFFICE/OUTPATIENT VISIT EST Diagnosis: Acute recurrent sinusitis, 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: J01.91] Diagnosis: Allergic rhinitis due to pollen[ICD10: J30.1] María Elena APPIAH DNA13 [facility] CPT-4: 63075 08/02/2016 ([id number]) OFFICE/OUTPATIENT VISIT EST Diagnosis: Pain in unspecified joint[ICD10: M25.50] María Elena APPIAH DNA13 [facility] CPT-4: 15749 07/27/2016 OFFICE/OUTPATIENT VISIT EST Diagnosis: 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] Diagnosis: Acute recurrent sinusitis, 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: J01.91] Diagnosis: Other fatigue[ICD10: R53.83] Diagnosis: Primary insomnia[ICD10: F51.01] Diagnosis: Pain in unspecified joint[ICD10: M25.50] María Elena APPIAH DNA13 [facility] CPT-4: 75019 07/20/2016 ([id number]) OFFICE/OUTPATIENT VISIT EST Diagnosis: Blister (nonthermal), left great toe, initial encounter[ICD10: S90.422A] Loan APPIAH DNA13 [facility] CPT-4: 38295 ([id number]) OFFICE/OUTPATIENT VISIT EST Diagnosis: Acute recurrent sinusitis, 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: J01.91] María Elena APPIAH DNA13 [facility] CPT-4: 22042 05/25/2016 ([id number]) OFFICE/OUTPATIENT VISIT EST Diagnosis: Acute sinusitis, 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: J01.90] María Elena APPIAH DNA13 [facility] CPT-4: 32369 04/26/2016 ([id number]) OFFICE/OUTPATIENT VISIT EST Diagnosis: Flushing[ICD10: R23.2] Diagnosis: Primary insomnia[ICD10: F51.01] María Elena APPIAH DNA13 [facility] CPT-4: 38341 03/02/2016 ([id number]) OFFICE/OUTPATIENT VISIT EST Diagnosis: Other seasonal allergic rhinitis[ICD10: J30.2] Loan APPIAH DNA13 [facility] CPT-4: 05681 02/09/2016 ([id number]) OFFICE/OUTPATIENT VISIT EST Diagnosis: Primary insomnia[ICD10: F51.01] Diagnosis: Urinary tract infection, site not specified[ICD10: N39.0] María Elena APPIAH DNA13 [facility] CPT-4: 19866 01/24/2016 ([id number]) OFFICE/OUTPATIENT VISIT EST Diagnosis: Other specified disorders of Eustachian tube, bilateral[ICD10: H69.83] Diagnosis: Allergic rhinitis, 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: J30.9] Loan APPIAH DNA13 [facility] CPT-4: 51465 12/23/2015 ([id number]) OFFICE/OUTPATIENT VISIT EST Diagnosis: Acute recurrent sinusitis, 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: J01.91] Diagnosis: 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] Diagnosis: Allergic rhinitis, 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: J30.9] María Elena APPIAH DO [facility] CPT-4: 77999 12/08/2015 ([id number]) OFFICE/OUTPATIENT VISIT EST Diagnosis: Allergic rhinitis, 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: J30.9] Diagnosis: Pain in unspecified joint[ICD10: M25.50] María Elena APPIAH DO [facility] CPT-4: 42827 10/07/2015 ([id number]) OFFICE/OUTPATIENT VISIT EST Diagnosis: Essential (primary) hypertension[ICD10: I10] María Elena APPIAH DO [facility] CPT-4: 80694 10/06/2015 OFFICE/OUTPATIENT VISIT EST Diagnosis: Localized enlarged lymph nodes[ICD10: R59.0] Diagnosis: Local infection of the skin and subcutaneous tissue, 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: L08.9] June Felixadniella APPIAH DO [facility] CPT- 4: 09891 09/14/2015 ([id number]) OFFICE/OUTPATIENT VISIT EST Diagnosis: Essential (primary) hypertension[ICD10: I10] Diagnosis: Actinic keratosis[ICD10: L57.0] María Elena APPIAH DO [facility] CPT-4: 55434 09/07/2015 ([id number]) OFFICE/OUTPATIENT VISIT EST Diagnosis: Essential (primary) hypertension[ICD10: I10] Diagnosis: Acute stress reaction[ICD10: F43.0] María Elena APPIAH DNA13 [facility] CPT-4: 90948 08/18/2015 ([id number]) OFFICE/OUTPATIENT VISIT EST Diagnosis: Essential (primary) hypertension[ICD10: I10] María Elena APPIAH DO [facility] CPT-4: 57364 07/07/2015 ([id number]) OFFICE/OUTPATIENT VISIT EST Diagnosis: Essential (primary) hypertension[ICD10: I10] María Elena APPIAH DO [facility] CPT-4: 89955 06/24/2015 ([id number]) OFFICE/OUTPATIENT VISIT EST Diagnosis: Essential (primary) hypertension[ICD10: I10] María Elena APPIAH DO [facility] CPT-4: 60505 06/21/2015 ([id number]) OFFICE/OUTPATIENT VISIT EST Diagnosis: Essential (primary) hypertension[ICD10: I10] Diagnosis: Mixed hyperlipidemia[ICD10: E78.2] Diagnosis: Acute stress reaction[ICD10: F43.0] Diagnosis: Primary insomnia[ICD10: F51.01] María Elena APPIAH [facility] CPT-4: 64636 06/16/2015 ([id number]) OFFICE/OUTPATIENT VISIT EST Diagnosis: INSOMNIA NOS[ICD9: 780.52] Diagnosis: HYPERTENSION[ICD9: 401.9] Diagnosis: Stress reaction[ICD9: 308.9] María Elena APPIAH [facility] CPT-4: 94877 06/02/2015 ([id number]) OFFICE/OUTPATIENT VISIT EST Diagnosis: HYPERTENSION[ICD9: 401.9] Diagnosis: Stress reaction[ICD9: 308.9] María Elena APPIAH [facility] CPT-4: 27483 05/20/2015 ([id number]) OFFICE/OUTPATIENT VISIT EST Diagnosis: Skin lesion[ICD9: 709.9] 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] María Elena APPIAH [facility] CPT-4: 68515 05/10/2015 ([id number]) OFFICE/OUTPATIENT VISIT EST Diagnosis: SINUSITIS, ACUTE[ICD9: 461.9] Diagnosis: ALLERGIC RHINITIS[ICD9: 477.9] Diagnosis: DERMATITIS NOS[ICD9: 692.9] María Elena REHMAN [facility] CPT-4: 25212 03/16/2015 OFFICE/OUTPATIENT VISIT EST Diagnosis: Otitis media[ICD9: 382.9] Diagnosis: SINUSITIS, ACUTE[ICD9: 461.9] June Flores MARÍA ELENA APPIAH [facility] CPT-4: 82440 09/11/2014 ([id number]) OFFICE/OUTPATIENT VISIT EST Diagnosis: HYPERLIPIDEMIA NEC/NOS[ICD9: 272.4] María Elena APPIAH DO [facility] CPT-4: 57468 08/31/2014 ([id number]) OFFICE/OUTPATIENT VISIT EST Diagnosis: - I - HYPERTENSION[ICD9: 401.9] Diagnosis: HYPERLIPIDEMIA NEC/NOS[ICD9: 272.4] María Elena APPIAH DO [facility] CPT-4: 13654 08/27/2014 ([id number]) OFFICE/OUTPATIENT VISIT EST Diagnosis: ABDOMINAL PAIN[ICD9: 789.00] Diagnosis: DYSPEPSIA[ICD9: 536.8] Diagnosis: Thoracic back pain[ICD9: 724.1] María Elena APPIAH DO [facility] CPT-4: 59750 07/21/2014 ([id number]) OFFICE/OUTPATIENT VISIT EST Diagnosis: ALLERGIC RHINITIS[ICD9: 477.9] María Elena APPIAH DO [facility] CPT-4: 19739 07/15/2014 ([id number]) OFFICE/OUTPATIENT VISIT EST Diagnosis: EDEMA[ICD9: 782.3] Diagnosis: Chronic insomnia[ICD9: 780.52] María Elena APPIAH [facility] CPT-4: 02175 05/18/2014 ([id number]) OFFICE/OUTPATIENT VISIT EST Diagnosis: Thyromegaly[ICD9: 240.9] Diagnosis: - I - HYPERTENSION[ICD9: 401.9] Diagnosis: ROUTINE MEDICAL EXAM[ICD9: V70.0] Diagnosis: EDEMA[ICD9: 782.3] María Elena APPIAH DO [facility] CPT-4: 46246 05/14/2014 OFFICE/OUTPATIENT VISIT EST Diagnosis: BRONCHITIS, ACUTE[ICD9: 466.0] Diagnosis: SINUSITIS, ACUTE[ICD9: 461.9] María Elena APPIAH DO [facility] CPT-4: 29672 04/21/2014 OFFICE/OUTPATIENT VISIT EST Diagnosis: SINUSITIS, ACUTE[ICD9: 461.9] June Sandra MARÍA ELENA APPIAH [facility] CPT-4: 25488 03/04/2014 ([id number]) OFFICE/OUTPATIENT VISIT EST Diagnosis: VACCINE FOR TDAP[ICD10: Z23] María Elena APPIAH [facility] CPT-4: 90526 02/27/2014 ([id number]) OFFICE/OUTPATIENT VISIT EST Diagnosis: Seborrheic keratoses, inflamed[ICD9: 702.11] Diagnosis: ACTINIC KERATOSIS[ICD9: 702.0] Diagnosis: INSOMNIA NOS[ICD9: 780.52] María Elena PANDYA [facility] CPT-4: 63442 01/13/2014 OFFICE/OUTPATIENT VISIT EST 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] Diagnosis: ALLERGIC RHINITIS[ICD9: 477.9] Diagnosis: Serous otitis media[ICD9: 381.4] María Elena APPIAH [facility] CPT-4: 74226 12/24/2013 ([id number]) OFFICE/OUTPATIENT VISIT EST Diagnosis: SINUSITIS, ACUTE[ICD9: 461.9] Diagnosis: ALLERGIC RHINITIS[ICD9: 477.9] 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] María Elena APPIAH [facility] CPT-4: 01125 11/12/2013 ([id number]) OFFICE/OUTPATIENT VISIT EST Diagnosis: ALLERGIC RHINITIS[ICD9: 477.9] Diagnosis: SINUSITIS, ACUTE[ICD9: 461.9] María Elena APPIAH [facility] CPT-4: 03205 10/21/2013 ([id number]) OFFICE/OUTPATIENT VISIT EST Diagnosis: ASYMPTOMATIC VARICOSE VEINS[ICD9: 454.9] Diagnosis: INSOMNIA NOS[ICD9: 780.52] María Elena PANDYA [facility] CPT-4: 16381 09/22/2013 OFFICE/OUTPATIENT VISIT EST Diagnosis: SINUSITIS, ACUTE[ICD9: 461.9] June Flores MARÍA ELENA APPIAH [facility] CPT-4: 84519 08/27/2013 ([id number]) OFFICE/OUTPATIENT VISIT EST Diagnosis: CEPHALGIA[ICD9: 784.0] Diagnosis: CEPHALGIA, TENSION[ICD9: 307.81] 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] aMría Elena APPIAH DO [facility] CPT-4: 54725 08/04/2013 ([id number]) OFFICE/OUTPATIENT VISIT EST Diagnosis: Cervicalgia[ICD9: 723.1] Diagnosis: SPASM OF MUSCLE[ICD9: 728.85] Diagnosis: CEPHALGIA, TENSION[ICD9: 307.81] María Elena APPIAH DO [facility] CPT-4: 89158 07/23/2013 ([id number]) OFFICE/OUTPATIENT VISIT EST 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] Diagnosis: ALLERGIC RHINITIS[ICD9: 477.9] María Elena APPIAH DO [facility] CPT-4: 65608 06/23/2013 ([id number]) OFFICE/OUTPATIENT VISIT EST Diagnosis: ALLERGIC RHINITIS[ICD9: 477.9] Diagnosis: ACUTE SEROUS OTITIS MEDIA[ICD9: 381.01] 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] María Elena APPIAH [facility] CPT-4: 09147 05/26/2013 ([id number]) OFFICE/OUTPATIENT VISIT EST Diagnosis: HYPERTENSION[ICD9: 401.9] Diagnosis: EDEMA[ICD9: 782.3] Diagnosis: Serous otitis media[ICD9: 381.4] María Elena APPIAH [facility] CPT-4: 95810 04/16/2013 ([id number]) OFFICE/OUTPATIENT VISIT EST Diagnosis: SINUSITIS, ACUTE[ICD9: 461.9] Diagnosis: ALLERGIC RHINITIS[ICD9: 477.9] Diagnosis: EDEMA[ICD9: 782.3] Diagnosis: Thyromegaly[ICD9: 240.9] Diagnosis: MALAISE AND FATIGUE[ICD9: 780.79] María Elena APPIAH [facility] CPT-4: 55556 03/05/2013 ([id number]) OFFICE/OUTPATIENT VISIT EST Diagnosis: PAIN, LOWER BACK[ICD9: 724.2] Diagnosis: SPASM OF MUSCLE[ICD9: 728.85] María Elena JUARES LucioJj IGNACIO GARIBAY [facility] CPT-4: 61736 12/23/2012 OFFICE/OUTPATIENT VISIT EST Diagnosis: Low back pain[ICD9: 724.2] Lashawn Hicks KRISTYN PANDYA DO [facility] CPT-4: 49384 12/16/2012 ([id number]) OFFICE/OUTPATIENT VISIT EST Diagnosis: PAIN, LOWER BACK[ICD9: 724.2] Diagnosis: SCIATICA[ICD9: 724.3] Diagnosis: Lumbar herniated disc[ICD9: 722.10] María Elena COLON LucioJj IGNACIO GARIBAY [facility] CPT-4: 45033 12/09/2012 ([id number]) OFFICE/OUTPATIENT VISIT EST Diagnosis: PAIN, LOWER BACK[ICD9: 724.2] Diagnosis: SCIATICA[ICD9: 724.3] Diagnosis: LUMBAR DISC DISPLACEMENT[ICD9: 722.10] María Elena MARIN LucioJj IGNACIO GARIBAY [facility] CPT-4: 43311 12/04/2012 OFFICE/OUTPATIENT VISIT EST Diagnosis: Pneumonia[ICD9: 486] Mary JUARES LucioJj IGNACIO GARIBAY [facility] CPT-4: 58909 11/22/2012 ([id number]) OFFICE/OUTPATIENT VISIT EST Diagnosis: PNEUMONIA, ORGANISM[ICD9: 486] Diagnosis: Exacerbation of RAD (reactive airway disease)[ICD9: 493.92] María Elena JUARES LucioJj IGNACOI GARIBAY [facility] CPT-4: 35521 11/21/2012 OFFICE/OUTPATIENT VISIT EST Diagnosis: HYPERTENSION[ICD9: 401.9] Diagnosis: Cephalgia[ICD9: 784.0] Lashawn Hicks IGNACIO GARIBAY [facility] CPT-4: 71268 10/29/2012 ([id number]) OFFICE/OUTPATIENT VISIT EST Diagnosis: MALAISE AND FATIGUE[ICD9: 780.79] Diagnosis: ARTHRALGIA-MULTIPLE SITES[ICD9: 719.49] María Elena REED LucioJj IGNACIO GARIBAY [facility] CPT-4: 31635 10/14/2012 ([id number]) OFFICE/OUTPATIENT VISIT EST Diagnosis: URINARY FREQUENCY[ICD9: 788.41] María Elena APPIAH [facility] CPT-4: 81650 09/27/2012 ([id number]) OFFICE/OUTPATIENT VISIT EST Diagnosis: MALAISE AND FATIGUE[ICD9: 780.79] Diagnosis: ARTHRALGIA-MULTIPLE SITES[ICD9: 719.49] María Elena WAYNDER [facility] CPT-4: 27995 09/25/2012 ([id number]) OFFICE/OUTPATIENT VISIT EST Diagnosis: SINUSITIS, ACUTE[ICD9: 461.9] 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] María Elena APPIAH [facility] CPT-4: 76650 08/29/2012 OFFICE/OUTPATIENT VISIT EST Diagnosis: ACTINIC KERATOSIS[ICD9: 702.0] Diagnosis: Inflamed seborrheic keratosis[ICD9: 702.11] Diagnosis: Skin cancer of face[ICD9: 173.31] Diagnosis: HYPERTENSION[ICD9: 401.9] María Elena WAY NDERose Mary [facility] CPT-4: 70971 08/12/2012 ([id number]) OFFICE/OUTPATIENT VISIT EST Diagnosis: ARTHRALGIA-MULTIPLE SITES[ICD9: 719.49] Diagnosis: GOUT[ICD9: 274.9] Diagnosis: HYPERTENSION[ICD9: 401.9] Diagnosis: Tachycardia[ICD9: 785.0] María Elena ValdesJj FRITZ KARLOS [facility] CPT-4: 81577 05/06/2012 ([id number]) OFFICE/OUTPATIENT VISIT EST Diagnosis: INSOMNIA NOS[ICD9: 780.52] María Elena SIMONS MUMTAZ [facility] CPT-4: 04112 04/03/2012 ([id number]) OFFICE/OUTPATIENT VISIT EST Diagnosis: INSOMNIA NOS[ICD9: 780.52] Diagnosis: HYPERTENSION[ICD9: 401.9] Diagnosis: MIGRAINE NOS/NOT INTRCBL[ICD9: 346.90] María Elena MONTEROLui MARIN Fabiola WAYNDER [facility] CPT-4: 24333 03/19/2012 ([id number]) OFFICE/OUTPATIENT VISIT EST Diagnosis: CELLULITIS[ICD9: 682.9] Diagnosis: Ankle pain[ICD9: 719.47] Diagnosis: HYPERTENSION[ICD9: 401.9] María Elena JUARES LucioJj WALT MOJICARose Mary [facility] CPT-4: 52752 02/20/2012 ([id number]) OFFICE/OUTPATIENT VISIT EST Diagnosis: MIGRAINE NOS/NOT INTRCBL[ICD9: 346.90] Diagnosis: Vomiting[ICD9: 787.03] María Elena Hicks WALTGALINA Bazzi [facility] CPT-4: 21903 01/30/2012 ([id number]) OFFICE/OUTPATIENT VISIT EST Diagnosis: EDEMA[ICD9: 782.3] Diagnosis: HYPERTENSION[ICD9: 401.9] Diagnosis: ALLERGIC RHINITIS[ICD9: 477.9] Diagnosis: ARTHRALGIA-MULTIPLE SITES[ICD9: 719.49] María Elena Hicks W[place]DAWN [facility] CPT-4: 55647 01/24/2012 ([id number]) OFFICE/OUTPATIENT VISIT EST Diagnosis: SPASM OF MUSCLE[ICD9: 728.85] Diagnosis: Thoracic back pain[ICD9: 724.1] Diagnosis: Cervical pain[ICD9: 723.1] María Elena Hicks KRISTYN MUMTAZ [facility] CPT-4: 00876 01/10/2012 OFFICE/OUTPATIENT VISIT EST Diagnosis: PAIN, LOWER BACK[ICD9: 724.2] Diagnosis: LUMBAR DISC DISPLACEMENT[ICD9: 722.10] María Elena Hicks [place] [facility] CPT-4: 91809 12/11/2011 OFFICE/OUTPATIENT VISIT EST Diagnosis: MIGRAINE NOS/NOT INTRCBL[ICD9: 346.90] Diagnosis: SINUSITIS, ACUTE[ICD9: 461.9] María Elena Hicks [place] [facility] CPT-4: 44769 11/09/2011 OFFICE/OUTPATIENT VISIT EST Diagnosis: MIGRAINE NOS/NOT INTRCBL[ICD9: 346.90] Diagnosis: LYMPHADENOPATHY[ICD9: 785.6] María Elena [facility] CPT-[facility]: 32865 09/13/2011 OFFICE/OUTPATIENT VISIT EST Diagnosis: MALAISE AND FATIGUE[ICD9: 780.79] Diagnosis: ARTHRALGIA-MULTIPLE SITES[ICD9: 719.49] María Elena ValdesJj IGNACIO GARIBAY [facility] CPT-4: 29544 08/31/2011 OFFICE/OUTPATIENT VISIT EST Diagnosis: SINUSITIS, ACUTE[ICD9: 461.9] María Elena APPIAH DO [facility] CPT-4: 25014 07/20/2011 OFFICE/OUTPATIENT VISIT EST Diagnosis: HYPERTENSION[ICD9: 401.9] Diagnosis: PAIN, LOWER BACK[ICD9: 724.2] Diagnosis: SPASM OF MUSCLE[ICD9: 728.85] María Elena APPIAH DO [facility] CPT-4: 98475 07/06/2011 OFFICE/OUTPATIENT VISIT EST Diagnosis: MIGRAINE NOS/NOT INTRCBL[ICD9: 346.90] Diagnosis: HYPERTENSION[ICD9: 401.9] María Elena SEYMOUR [facility] CPT-4: 80075 05/22/2011 OFFICE/OUTPATIENT VISIT EST Diagnosis: SINUSITIS, ACUTE[ICD9: 461.9] Diagnosis: MIGRAINE NOS/NOT INTRCBL[ICD9: 346.90] Diagnosis: Dehydration[ICD9: 276.51] Diagnosis: Vomiting[ICD9: 787.03] María Elena Waltyesimaryjane MARÍA ELENA LucioJj CIRO Bazzi [facility] CPT-4: 50211 05/09/2011 ([id number]) OFFICE/OUTPATIENT VISIT EST María Elena Ortamaryjane MARLIN UJARED SJj WALTNDER DO [facility] CPT-4: 43760 02/14/2011 ([id number]) OFFICE/OUTPATIENT VISIT EST María Elena Waltyesimaryjane MARLIN UJARED SJj ORENDER DO [facility] CPT-4: 84923 02/03/2011 ([id number]) OFFICE/OUTPATIENT VISIT EST María Elena ISAAC UJARED SJj [facility] DO [facility] CPT-4: 98823 01/31/2011 ([id number]) OFFICE/OUTPATIENT VISIT EST María Elena ISAAC TANIA SJj WALTNDER DO [facility] CPT-4: 78462 01/25/2011 ([id number]) OFFICE/OUTPATIENT VISIT EST María Elena ISAAC [facility]ED [facility] CPT-4: 34565 01/18/2011 ([id number]) OFFICE/OUTPATIENT VISIT EST María Elena MARIN SJj [facility] CPT-4: 77253 11/29/2010 ([id number]) OFFICE/OUTPATIENT VISIT, EST María Elena REED [facility] CPT-4: 25794 10/10/2010 ([id number]) OFFICE/OUTPATIENT VISIT, EST María Elena [facility] CPT-4: 91375 06/07/2010 ([id number]) OFFICE/OUTPATIENT VISIT, EST María Elena [facility] CPT-4: 40549 04/27/2010 ([id number]) OFFICE/OUTPATIENT VISIT, EST María Elena REED [facility] CPT-4: 56348 04/05/2010 ([id number]) OFFICE/OUTPATIENT VISIT, EST María Elena [facility] CPT-4: 50214 03/09/2010 ([id number]) OFFICE/OUTPATIENT VISIT, EST María Elena [facility] CPT-4: 05146 03/03/2010 ([id number]) OFFICE/OUTPATIENT VISIT, EST María Elena REED [facility] CPT-4: 75178 01/17/2010 ([id number]) PREV VISIT, EST, AGE 40-64 María Elena COLEMAN [facility] CPT-4: 92156 12/27/2009 Plan of Care Planned Activity Notes Codes Status Date Visit Diagnosis Plan: Cellulitis of left foot Discussi on: Doxycycline and Prednisone Continue lasix and potassium Elevate legs Low Na diet To ER this weekend if worsens ICD-9 : 682.7 ICD-10 : L03.116 03/04/2020 Patient Education: doxycycline hyclate- [employer] [id number] Completed 03/04/2020 Patient Education: prednisone- [employer] [id number] Completed 03/04/2020 Visit Diagnosis Plan: Lower extremity [...] ICD-10 : S90.821A 02/12/2020 Appointment: Kathleen Zuniga [address] [place] [address] ACUTE ILLNESS 02/12/2020 Visit Diagnosis Plan: Essential [...] E11.65 01/13/2020 Appointment: María Elena Appiah WPtel: [address] [place], [place] [phone] US FOLLOW UP 01/13/2020 Patient Education: lisinopril- [employer]on [id number] Completed 01/13/2020 Patient Education: glimepiride- [employer] [id number] Completed 01/13/2020 Appointment: María Elena Appiah WPtel: [id number] US CANCELED 11/26/2019 Visit Diagnosis Plan: Type 2 diabetes mellitus with hy perglycemia Discussion: Januvia 100mg daily Glimepride 2mg po BID Accuchecks BID Call in 2 weeks with BS readings Get formulary book ICD-9 : 250.02 ICD-10 : E11.65 11/20/2019 Appointment: María Elena Appiah WPtel: [phone] [id number] FOLLOW UP 11/20/2019 Patient Education: glimepiride- [employer] [id number] Completed 11/20/2019 Patient Education: Januvia- [employer] [id number] Completed 11/20/2019 Visit Diagnosis Plan: Ingrowing nail [...] ICD-10 : E11.65 10/07/2019 Appointment: Kathleen Zuniga [address] [place], [place] [id number] OFFICE SURGERY 10/07/2019 Visit Diagnosis Plan: Hypertriglyceridemia [...] E11.65 09/30/2019 Appointment: María Elena Appiah WPtel: [address] [place], [place] [phone] [place] CHECK UP 09/30/2019 Patient Education: Premarin- [employer]on [id number] https://[email or web address]/resources/getResource/[email or web address]/[email or web address]-[email or web address]-z5 Completed 09/30/2019 Appointment: María Elena Appiah WPtel: [address] [place], [place] [phone] [place] LAB 09/29/2019 Appointment: María Elena Appiah WPtel: [address] [place], [place] [phone] [place] Won't have the new insurance till [...] W06.XXXS 05/28/2019 Appointment: María Elena Appiah WPtel: [address] [place], [place] [phone] [place] FOLLOW UP 05/28/2019 Appointment: María Elena Appiah WPtel: [address] [place], [place] [phone] [place] BP CHECK 05/19/2019 Visit Diagnosis Plan: [...] Z79.890 01/22/2019 Appointment: María Elena Appiah WPtel: [address] [place], [place] [id number] [place] FOLLOW UP 01/22/2019 Patient Education: estradiol- [employer] [id number] https://www.[employer]/resources/getResource/61/333l188n-[email or web address] Completed 01/22/2019 Appointment: María Elena Appiah WPtel: [address] [place], [place] [phone] [place] CANCELED 01/20/2019 Appointment: María Elena Appiah WPtel: [address] [place] [address] [place] LM NO SHOW 01/06/2019 Appointment: María Elena Appiah WPtel: [address] [place], [place] [phone] [place] CANCELED 10/17/2018 Appointment: María Elena Appiah WPtel: [address] [place], [place] [phone] [place] BP CHECK 10/09/2018 Visit Diagnosis Plan: [...] I10 09/30/2018 Appointment: María Elena Appiah WPtel: [address] [place] [address] [place] FOLLOW UP 09/30/2018 Visit Diagnosis Plan: [...] F51.01 08/27/2018 Appointment: María Elena Appiah WPtel: [address] [place] [address] ACUTE ILLNESS 08/27/2018 Appointment: María Elena Appiah WPtel: [address] [place] [address] [place] Patient stated she went out to [...] prn. Tyle... 08/09/2018 Appointment: María Elena Appiahtel: [address] [place] [address] [place] ACUTE ILLNESS 08/09/2018 Appointment: María Elena Appiah WPtel: [address] [place] [address] NO SHOW 08/08/2018 Visit Diagnosis Plan: Anxiety [...] B35.4 07/22/2018 Appointment: María Elena Appiah WPtel: [address] [place] [address] ACUTE ILLNESS 07/22/2018 Appointment: María Elena Appiah WPtel: [address] [place] [address] [place] INJECTION 06/19/2018 Patient Education: Patient Medication [...] ICD-10 : L03.031 06/17/2018 Appointment: Kathleen Zuniga [address] [place] [address] ACUTE ILLNESS 06/17/2018 Patient Education: Patient Medication [...] ICD-10 : B02.9 05/16/2018 Appointment: Kathleen Zuniga [address] [place] [address] ACUTE ILLNESS 05/16/2018 Patient Education: Patient Medication [...] ICD-10 : L03.115 03/20/2018 Appointment: Kathleen Zuniga [address] [place], [place] [address] FOLLOW UP 03/20/2018 Patient Education: Patient Medication [...] ICD-10 : L03.115 03/18/2018 Appointment: Kathleen Zuniga [address] [place], [place] [id number] FOLLOW UP 03/18/2018 Patient Education: Patient Medication [...] ICD-10 : L03.115 03/15/2018 Appointment: Kathleen Zuniga [address] [place] [address] ACUTE ILLNESS 03/15/2018 Patient Education: Patient Medication [...] ICD-10 : J01.90 02/11/2018 Appointment: Kathleen Zuniga [address] [place] [address] ACUTE ILLNESS 02/11/2018 Patient Education: Patient Medication Summary Completed 02/11/2018 Appointment: María Elena Appiah WPtel: [phone] [id number] INJECTION 02/01/2018 Patient Education: Patient Medication Summary [...] ICD-10 : M51.16 01/30/2018 Appointment: Kathleen Zuniga [address] [place] [address] ACUTE ILLNESS 01/30/2018 Patient Education: Patient Medication [...] E11.65 12/18/2017 Appointment: María Elena Appiah WPtel: [address] [place] [address] Annual Well Visit 12/18/2017 Patient Education: Patient Medication Summary Completed 12/18/2017 Care Plan: Referral Order SNOMED-CT : [id number] Pending 12/18/2017 Appointment: María Elena Appiah WPtel: [address] [place] [address] INJECTION 12/10/2017 Patient Education: Patient Medication Summary [...] ICD-10 : L03.031 12/07/2017 Appointment: Kathleen Zuniga [address] [place] [address] ACUTE ILLNESS 12/07/2017 Patient Education: Patient Medication [...] ICD-10 : J01.00 10/08/2017 Appointment: Kathleen Zuniga [address] [place] [address] ACUTE ILLNESS 10/08/2017 Patient Education: Patient Medication Summary Completed 10/08/2017 Appointment: María Elena Appiah WPtel: [phone] [facility] [place] INJECTION 09/21/2017 Patient Education: Patient Medication [...] : R06.83 09/20/2017 Appointment: [facility] AC[facility] 09/20/2017 Patient Education: Patient Medication [...] : L60.0 08/29/2017 Appointment: Kathleen [facility]uniga [facility] [facility] SURGERY 08/29/2017 Patient Education: Patient Medication Summary Completed 08/29/2017 Visit Diagnosis Plan: Actinic keratosis Discussion: Cr yotherapy as above ICD-9 : 702.0 ICD-10 : L57.0 08/01/2017 Appointment: María Elena Appiah [facility]Ptel[phone] [facility] [facility] 08/01/2017 Patient Education: Patient Medication Summary Completed 08/01/2017 Appointment: María Elena Appiah WPtel: [address] [place], [place] [phone] PATIENT THOUGHT APPOINTMENT WAS TOMORROW 07/26/17 CALLED 15 MINUTES BEFORE APPT TO SAY SHE DIDN'T HAVE ANYONE TO COVER HER BUSINESS AND WOULD NOT MAKE IT NO SHOW 07/25/2017 Visit Diagnosis Plan: Cellulitis of left toe Discussio n: Clindamycin and notify if worsening or persistis ICD-9 : 681.10 ICD-10 : L03.032 07/19/2017 Appointment: María Elena Appiah WPtel: [address] [place], [place] [phone] MEDICATION REVIEW 07/19/2017 Patient Education: Patient Medication Summary Completed 07/19/2017 Appointment: María Elena Appiah WPtel: [facility] [place] CANCELED 07/04/2017 Visit Diagnosis Plan: Generalized hyperhidrosis Discus ian: CBC, CMP, TSH, free T4 ordered to assess. will review labs. ICD-9 : 780.8 ICD-10 : R61 06/27/2017 Visit Diagnosis Plan: Chronic sinusitis, unspecified D iscussion: Referral sent to dr. albarado in [place] per patient request. patient has been treated multiple times for sinus infections with no recovery. patient was seen by dr sanchez in the past with no interventions. patient has deviated septum which may be affecting her sinuses. 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, including hip Discussion: Shave removal of above lesio n--sent to pathology ICD-9 : 216.7 ICD-10 : D23.72 01/24/2017 Appointment: María Elena Appiah WPtel: [address] [place], [place] [phone] 01/23 confirmed ~ OFFICE SURGERY 01/24/2017 Patient Education: Patient Medication Summary Completed 01/24/2017 Appointment: Loan Sánchez [address] [place] [address] 01/09 rescheduled~sl RESCHEDULED 01/15/2017 Visit Diagnosis Plan: [...] L81.4 12/13/2016 Appointment: María Elena Appiah WPtel: [address] [place], [place] [phone] 12/12 confirmed ~sl MEDICATION REVIEW 12/13/2016 Patient Education: Patient Medication Summary Completed 12/13/2016 Appointment: María Elena Appiah WPtel: [address] [place], [place] [phone] [place] rescheduled for 12/13/16 at 11am RESCHEDULED 0 12/06/2016 Appointment: María Elena Appiah WPtel: [phone] [facility] [place] CANCELED 11/23/2016 Patient Education: Patient Medication [...] F51.01 11/01/2016 Appointment: María Elena Appiah WPtel: [address] [place], [place] [phone] 10/31 lm `sl 11/01 lm`sl MEDICATION REVIEW 017 Patient Education: Patient Medication Summary Completed 11/01/2016 Referral: Canelo Overton WPtel: [phone] [id number] [place] Referral Initiated 10/30/2016 Visit Diagnosis Plan: [...] Z01.419 10/17/2016 Appointment: María Elena Appiah WPtel: [address] [place], [place] [phone] 10/16 confirmed ~sl PAP 10/17/2016 Patient Education: Patient Medication Summary Completed 10/17/2016 Care Plan: MAMMOGRAM SCREENING LOINC : 2 6347-5 Pending 10/17/2016 Visit Diagnosis Plan: Other seasonal allergic rhinitis Discussion: Decadron/Garamycin Nasal [place] Mix Too soon for steroid Retry zyrtec 10mg daily ICD-9 : 477.9 ICD-10 : J30.2 10/10/2016 Appointment: María Elena Appiah WPtel: [address] [place], [place] [phone] FOLLOW UP 10/10/2016 Patient Education: Patient Medication Summary Completed 10/10/2016 Appointment: María Elena Appiah WPtel: [address] [place], [place] [phone] 10/02 reschedule `sl RESCHEDULED 10/02/2016 Visit Plan: See surgery for removal of n ew left arm lesion and right foot lesion Lyrica to use next month for left arm paresthesias Continue current meds Discussed sunscreen/sunblock combo 09/19/2016 Appointment: María Elena Appiah WPtel: [address] [place], [place] [phone] 09/18 confirmed ~sl FOLLOW UP 09/19/2016 Patient Education: Patient Medication Summary Completed 09/19/2016 Patient Education: Patient Medication Summary Completed 09/18/2016 Care Plan: MAMMOGRAM BOTH BREASTS LOINC : 27853-9 Pending 09/18/2016 Visit Plan: Discussed that needs [...] sinuses 08/24/2016 Appointment: María Elena Appiah WPtel: [address] [place], [place] [phone] ACUTE ILLNESS 08/24/2016 Patient Education: Patient Medication Summary Completed 08/24/2016 Patient Education: Patient Medication Summary Completed 08/23/2016 Care Plan: MAMMOGRAM SCREENING LOINC : 2 6347-5 Pending 08/23/2016 Visit Plan: Finish doxycycline Add Breo 100/25 1 p BID for 2 weeks If not improving within next 2 days will get CXR 08/16/2016 Appointment: María Elena Appiah WPtel: [address] [place] [address] ACUTE ILLNESS 08/16/2016 Patient Education: Patient Medication Summary Completed 08/16/2016 Visit Plan: Supportive care. Rest, Fluid s, Tylenol/Motrin prn fever or bodyaches. Notify if worsening symptoms. Doxycyline and Prednisone 08/10/2016 Appointment: María Elena Appiah WPtel: [address] [place] [address] 08/09 lm`sl....confirmed-sp FOLLOW UP 09/2015 Patient Education: Patient Medication Summary Completed 08/10/2016 Visit Plan: Saline nasal flushes prn. Ty lenol/Motrin prn headache. Notify if persists/symptoms worsening. Dexamethasone 8mg IM today May use coricedan and mucinex 08/02/2016 Appointment: María Elena Appiah WPtel: [address] [place] [address] ACUTE ILLNESS 08/02/2016 Patient Education: Patient Medication Summary Completed 08/02/2016 Visit Plan: Cryotherapy as above and lef t forearm lesion removal as above with 5-0 punch biopsy and sent to path Return in 10 days for suture removal 08/01/2016 Appointment: María Elena Appiah WPtel: [address] [place] [address] 07/31 confirmed`~sl OFFICE SURGERY 08/01/2016 Patient Education: Patient Medication Summary Completed 08/01/2016 Visit Plan: Stop clindamycin Check CBC, CMP, ESR now/STAT 07/27/2016 Appointment: María Elena Appiah WPtel: [address] [place] [address] ACUTE ILLNESS 07/27/2016 Patient Education: Patient Medication Summary Completed 07/27/2016 Visit Plan: Update lab and check ABIs to start with Will likely need cardiology evaluation to rule out PVD Clindamycin for 10 days Daily yogurt or probiotic Will return for removal of left arm lesions 07/20/2016 Appointment: María Elena Appiah WPtel: [address] [place] [address] ACUTE ILLNESS 07/20/2016 Patient Education: Patient Medication Summary Completed 07/20/2016 Patient Education: Patient Medication Summary Completed 07/20/2016 Care Plan: MAMMOGRAM BOTH BREASTS LOINC : 48958-8 Pending 07/20/2016 Care Plan: US EXAM CHEST LOINC : 50551-8 Pending 07/20/2016 Visit Plan: Wound culture collected from left great toe Appearance is somewhat staph like Rx as above Wound cleanser and skin care reviewed May need to add oral antibiotic if sores do not heal or continue to reoccur 07/06/2016 Appointment: Loan Sánchez [address] [place] [address] ACUTE ILLNESS 07/06/2016 Patient Education: Patient Medication Summary Completed 07/06/2016 Appointment: María Elena Appiah WPtel: [address] [place] [address] [place] INJECTION 05/25/2016 Patient Education: Patient Medication Summary Completed 05/25/2016 Visit Plan: Saline nasal flushes prn. Ty lenol/Motrin prn headache. Notify if persists/symptoms worsening. Dexamethasone and Rocephin given 04/26/2016 Appointment: María Elena Appiah WPtel: [address] [place] [address] ACUTE ILLNESS 04/26/2016 Patient Education: Patient Medication Summary Completed 04/26/2016 Visit Plan: Check CBC, CMP, TSH, FreeT4, HbA1C, estradiol, lipids in AM 03/02/2016 Appointment: María Elena pApiah WPtel: [address] [place] [address] 03/01 lm~sl ACUTE ILLNESS 03/02/2016 Patient Education: Patient Medication Summary Completed 03/02/2016 Visit Plan: Exam is nearly normal Needs to be taking daily antihistamine Would prefer to use oral steroids instead of shot but patient insist that oral steroids cause horrible headaches for her Will given kenalog IM instead 02/09/2016 Appointment: Loan Sánchez [address] [place] [address] ACUTE ILLNESS 02/09/2016 Patient Education: Patient Medication Summary Completed 02/09/2016 Visit Plan: Culture urine Macrobid DC xa nax Trial of Ativan 1mg q HS 01/24/2016 Appointment: María Elena Appiah WPtel: [address] [place] [address] ACUTE ILLNESS 01/24/2016 Patient Education: Patient Medication Summary Completed 01/24/2016 Visit Plan: No steroid or rocephin injec tion warranted Can have oral prednisone Continue current home regimen Needs to follow up with Dr Sanchez if problems persist 12/23/2015 Appointment: Loan Sánchez [address] [place] [address] ACUTE ILLNESS 12/23/2015 Patient Education: Patient Medication Summary Completed 12/23/2015 Visit Plan: Saline nasal flushes prn. Ty lenol/Motrin prn headache. Notify if persists/symptoms worsening. Kenalog 40mg IM today 12/08/2015 Appointment: María Elena Appiah WPtel: [address] [place] [address] 12/06 confirmed~sl ACUTE ILLNESS 12/08/2015 Patient Education: Patient Medication Summary Completed 12/08/2015 Appointment: María Elena Appiah WPtel: [address] [place] [address] ACUTE ILLNESS 11/18/2015 Patient Education: Patient Medication Summary Completed 10/11/2015 Appointment: María Elena Appiah WPtel: [address] [place] [address] [place] INJECTION 10/07/2015 Patient Education: Patient Medication Summary Completed 10/07/2015 Visit Plan: Check renal arterial doppler s and ECHO Change amlodopine to lotrel 5/20mg q HS Will need stress test as well Check CMP, uric acid, ESR 10/06/2015 Appointment: María Elena Appiah WPtel: [address] [place], [place] [phone] ACUTE ILLNESS 10/06/2015 Patient Education: Patient Medication Summary Completed 10/06/2015 Patient Education: [facility] - Saving [employer] - Amlodipine Besylate - 18-64 - Dynamic Portal ID Completed 10/06/2015 Appointment: María Elena Appiah WPtel: [address] [place] [address] [place] FOLLOW UP 09/22/2015 Visit Plan: Cephalexin 500 mg PO bid Mery ly topical Mupirocin to lesions on left lateral neck and face Follow-up in one week. Sooner if symptoms worsen 09/14/2015 Appointment: June Flores WPtel: [address] [place] [address] ACUTE ILLNESS 09/14/2015 Patient Education: Patient Medication Summary Completed 09/14/2015 Visit Plan: Change bystolic to bedtime d osing and amlodopine to morning dosing Cryotherapy as above to AKs 09/07/2015 Appointment: María Elena Appiah WPtel: [address] [place] [address] 09/06 appointment made and confirmed ~sl FOLLOW UP 09/07/2015 Patient Education: Patient Medication Summary Completed 09/07/2015 Visit Plan: Increase bystolic back to 20 mg daily but will split and take 10mg in AM and 10mg in PM Stress Reducers 08/18/2015 Appointment: María Elena Appiah WPtel: [address] [place] [address] 08/17/15 appt confirmed cn ACUTE ILLNESS 08/18 Patient Education: Patient Medication Summary Completed 08/18/2015 Appointment: María Elena Appiah WPtel: [address] [place] [address] [place] BP CHECK 07/07/2015 Patient Education: Patient Medication Summary Completed 07/07/2015 Appointment: María Elena Appiah WPtel: [address] [place] [address] BP CHECK 06/24/2015 Patient Education: Patient Medication Summary Completed 06/24/2015 Appointment: María Elena Appiah WPtel: [address] [place] [address] BP CHECK 06/21/2015 Patient Education: Patient Medication Summary Completed 06/21/2015 Visit Plan: Lab discussed Continue curre nt meds and lifestyle modification Recheck lab in 6mos 06/16/2015 Appointment: María Elena Appiah WPtel: [address] [place] [address] 06/15 [facility] FOLLOW UP 06/16/2015 Patient Education: Patient Medication Summary Completed 06/16/2015 Patient Education: Patient Medication Summary Completed 06/15/2015 Visit Plan: Increase cymbalta to 60mg q HS Keep clonidine at current dose Recheck 2weeks Change xanax to klonopin 06/02/2015 Appointment: María Elena Appiah WPtel: [address] [place] [address] 06/02 lm FOLLOW UP 06/02/2015 Patient Education: Patient Medication Summary Completed 06/02/2015 Appointment: María Elena Appiah WPtel: [address] [place] [address] ACUTE ILLNESS 05/24/2015 Visit Plan: Increase clonidine to 0.2mg q HS Add cymbalta 30mg q HS Recheck 2weeks Stress Reducers Check fasting lab Discussed sleep study 05/20/2015 Appointment: María Elena Appiah WPtel: [address] [place] [address] ACUTE ILLNESS 05/20/2015 Patient Education: Patient Medication Summary Completed 05/20/2015 Patient Education: [facility] - [employer]aving [employer] - Cymbalta - 18-64 - Dynamic Portal ID Completed 05/20/2015 Appointment: María Elena Appiah WPtel: [address] [place] [address] BP CHECK 05/19/2015 Patient Education: Patient Medication Summary Completed 05/19/2015 Visit Plan: Topical Bactroban alternatin g with topical betamethasone Recheck 2weeks 05/10/2015 Appointment: María Elena Appiah WPtel: [address] [place] [address] 05/07 vm cn...05/07 appt confirmed OFFICE SURGER Y 05/10/2015 Patient Education: Patient Medication Summary Completed 05/10/2015 Referral: Patrick Chandler WPtel: [facility] [address] Referral Initiated 05/04/2015 Visit Plan: Saline nasal flushes prn. Ty lenol/Motrin prn headache. Notify if persists/symptoms worsening. Depomedrol 40mg IM today 03/16/2015 Appointment: María Elena Appiah WPtel: [address] [place] [address] ACUTE ILLNESS 03/16/2015 Patient Education: Patient Medication Summary Completed 03/16/2015 Appointment: María Elena Appiah WPtel: [address] [place] [address] ER Follow UP 03/09/2015 Visit Plan: Cryotherapy to lesions as ab ove 10/27/2014 Appointment: María Elena Appiah WPtel: [address] [place], [place] [phone] OFFICE SURGERY 10/27/2014 Patient Education: Patient Medication Summary Completed 10/27/2014 Appointment: June Flores WPtel: [address] [place] [address] ACUTE ILLNESS 09/11/2014 Patient Education: Patient Medication Summary Completed 09/11/2014 Visit Plan: Lab discussed Lipitor 10mg d aily Coenzyme Q-10 400mg daily Vitamin D3 5000u daily Recheck lipids with LFTs in 3mos then fwup 08/31/2014 Appointment: María Elena Appiah WPtel: [address] [place] [address] 08/28 voicemail FOLLOW UP 08/31/2014 Patient Education: Patient Medication Summary Completed 08/31/2014 Appointment: María Elena Appiah WPtel: [address] [place] [address] [place] LAB 08/27/2014 Appointment: María Elena Appiah WPtel: [address] [place], [place] [phone] [place] LAB 08/27/2014 Patient Education: Patient Medication Summary Completed 08/27/2014 Appointment: María Elena Appiah WPtel: [address] [place] [address] ACUTE ILLNESS 07/23/2014 Appointment: María Elena Appiah WPtel: [address] [place] [address] ACUTE ILLNESS 07/21/2014 Patient Education: Patient Medication Summary Completed 07/21/2014 Visit Plan: Kenalog 40mg IM today Contin ue narendra and singulair Add Flonase 07/15/2014 Appointment: María Elena Appiah WPtel: [address] [place] [address] ACUTE ILLNESS 07/15/2014 Appointment: María Elena Appiah WPtel: [address] [place] [address] ACUTE ILLNESS 07/15/2014 Patient Education: Patient Medication Summary Completed 07/15/2014 Visit Plan: Will do metolazone 2.5mg prn with 6 potassium and see if causes as severe cramping Trial of of seroquel XR 50mg q PM with evening meal and let us know how works 05/18/2014 Appointment: María Elena Appiah WPtel: [address] [place], [place] [phone] 05/15 left message FOLLOW UP 05/18/2014 Patient Education: Patient Medication Summary Completed 05/18/2014 Appointment: María Elena Appiah WPtel: [address] [place] [address] LAB 05/14/2014 Patient Education: Patient Medication Summary Completed 05/14/2014 Appointment: María Elena Appiah WPtel: [address] [place] [address] [place] INJECTION 04/22/2014 Visit Plan: Tisha and Miranda today a nd finish abx given from urgent care 04/21/2014 Appointment: María Elena Appiah WPtel: [address] [place] [address] [place] INJECTION 04/21/2014 Patient Education: Patient Medication Summary Completed 04/21/2014 Appointment: June Flores WPtel: [address] [place] [address] ACUTE ILLNESS 03/04/2014 Patient Education: Patient Medication Summary Completed 03/04/2014 Appointment: María Elena Appiah WPtel: [address] [place] [address] [place] INJECTION 02/27/2014 Patient Education: Patient Medication Summary Completed 02/27/2014 Visit Plan: Cryotherapy as above to all lesions Patient wants to try no meds for insomnia for a while and see how goes 01/13/2014 Appointment: María Elena Appiah WPtel: [address] [place] [address] OFFICE SURGERY 01/13/2014 Patient Education: Patient Medication Summary Completed 01/13/2014 Visit Plan: Stop Melatonin Stop Soma Tri al of trazadone 75mg q HS See ENT for possible tubes as has had chronic ETD and serous otitis media with numerous steroids 12/24/2013 Appointment: María Elena Appiah WPtel: [address] [place] [address] ACUTE ILLNESS 12/24/2013 Patient Education: Patient Medication Summary Completed 12/24/2013 Visit Plan: Saline nasal flushes prn. Ty lenol/Motrin prn headache. Notify if persists/symptoms worsening. 11/12/2013 Appointment: María Elena Appiah WPtel: [address] [place] [address] ACUTE ILLNESS 11/12/2013 Patient Education: Patient Medication Summary Completed 11/12/2013 Appointment: María Elena Appiah WPtel: [address] [place] [address] ACUTE ILLNESS 10/21/2013 Patient Education: Patient Medication Summary Completed 10/21/2013 Visit Plan: Sleep hygiene and sleep rout ine Melatonin 10mg q HS Support stockings and observe 09/22/2013 Appointment: María Elena Appiah WPtel: [address] [place] [address] ACUTE ILLNESS 09/22/2013 Patient Education: Patient Medication Summary Completed 09/22/2013 Appointment: June Flores WPtel: [address] [place] [address] ACUTE ILLNESS 08/27/2013 Patient Education: Patient Medication Summary Completed 08/27/2013 Visit Plan: Proceed with CT scan of head /neck Proceed with occipital nerve injections Butrans 20mcg patch weekly until can get into see Dr. Mcdonough for injections 08/04/2013 Appointment: María Elena Appiah WPtel: [address] [place] [address] FOLLOW UP 08/04/2013 Patient Education: Patient Medication Summary Completed 08/04/2013 Visit Plan: OMT done Daily neck stretche s, moist heat Increase Celebrex to 200mg BID Add flexeril 07/23/2013 Appointment: María Elena Appiah WPtel: [address] [place] [address] 07/22 voicemail FOLLOW UP 07/23/2013 Patient Education: Patient Medication Summary Completed 07/23/2013 Appointment: María Elena Appiah WPtel: [address] [place] [address] ACUTE ILLNESS 06/23/2013 Patient Education: Patient Medication Summary Completed 06/23/2013 Appointment: María Elena Appiah WPtel: [address] [place] [address] ACUTE ILLNESS 05/26/2013 Patient Education: Patient Medication Summary Completed 05/26/2013 Visit Plan: Decrease clonidine to 0.1mg TID If BP remains stable consider decreasing amlodopine Prednisone for 5 days BP check in 1mo 04/16/2013 Appointment: María Elena Appiah WPtel: [address] [place] [address] 04/14 pt called and confirmed appt FOLLOW UP 04/16/2013 Patient Education: Patient Medication Summary Completed 04/16/2013 Appointment: María Elena Appiah WPtel: [address] [place] [address] ACUTE ILLNESS 03/05/2013 Patient Education: Patient Medication Summary Completed 03/05/2013 Visit Plan: Pt has MARIA ELENA on with Dr. Mcdonough Continue Butrans patch Refill Hydrocodone early tomorrow 12/23/2012 Appointment: María Elena Appiah WPtel: [address] [place] [address] FOLLOW UP 12/23/2012 Patient Education: Patient Medication Summary Completed 12/23/2012 Appointment: Lashawn Eckert WPtel: [address] [place] [address] ACUTE ILLNESS 12/16/2012 Patient Education: Patient Medication Summary Completed 12/16/2012 Visit Plan: Proceed with updated MRI of LS spine Continue gabapentin and add soma and diclofenac Will likely need to go for another epidural 12/09/2012 Appointment: María Elena Appiah WPtel: [address] [place] [address] ACUTE ILLNESS 12/09/2012 Patient Education: Patient Medication Summary Completed 12/09/2012 Visit Plan: Injection as above Finish me drol dose pack Chiropracter this afternoon 12/04/2012 Appointment: María Elena Appiah WPtel: [address] [place], [place] [id number] ACUTE ILLNESS 12/04/2012 Patient Education: Patient Medication Summary Completed 12/04/2012 Appointment: Mray Tillman WPtel: [address] [place] [address] FOLLOW UP 11/22/2012 Patient Education: Patient Medication Summary Completed 11/22/2012 Appointment: María Elena Appiah WPtel: [address] [place], [place] [id number] ACUTE ILLNESS 11/21/2012 Patient Education: Patient Medication Summary Completed 11/21/2012 Appointment: María Elena Appiah WPtel: [address] [place] [address] BP CHECK 11/07/2012 Patient Education: Patient Medication Summary Completed 11/07/2012 Visit Plan: reports extra clonidine and extra amlodipine and extra alprazalam. extra Ketolorac and promethazine last night. Bystolic 10 mg QAM and will continue all other blood pressure meds. Pt. encouraged to rest and hydrate. Discussed stroke and [place] symptoms. Pt. instructed to seek ER eval if symptoms worsen or headache persists. Pt. agrees to ER eval/EMS transport if symptoms worsen. BP re-check. 10/29/2012 Appointment: Lashawn Eckert WPtel: [address] [place] [address] ACUTE ILLNESS 10/29/2012 Patient Education: Patient Medication Summary Completed 10/29/2012 Appointment: María Elena Appiah WPtel: [address] [place], [place] [phone] ACUTE ILLNESS 10/14/2012 Patient Education: Patient Medication Summary Completed 10/14/2012 Appointment: María Elena Appiah WPtel: [address] [place], [place] [phone] UA 09/27/2012 Patient Education: Patient Medication Summary Completed 09/27/2012 Appointment: María Elena Appiah WPtel: [address] [place], [place] [phone] ACUTE ILLNESS 09/25/2012 Patient Education: Patient Medication Summary Completed 09/25/2012 Appointment: María Elena Appiah WPtel: [address] [place], [place] [phone] BP CHECK 09/24/2012 Appointment: María Elena Appiah WPtel: [address] [place], [place] [phone] ACUTE ILLNESS 08/29/2012 Patient Education: Patient Medication Summary Completed 08/29/2012 Visit Plan: Cryotherapy as above See Karlos m for right ear lesion--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 ACUTE ILLNESS 05/06/2012 Patient Education: Patient Medication Summary Completed 05/06/2012 Visit Plan: Pt wants to hold on any furt her sleep medications 04/03/2012 Appointment: María Elena Appiah WPtel: [address] [place], [place] [phone] FOLLOW UP 04/03/2012 Patient Education: Patient Medication Summary Completed 04/03/2012 Appointment: María Elena Appiah WPtel: [address] [place], [place] [phone] [place] FOLLOW UP 03/19/2012 Patient Education: Patient Medication Summary Completed 03/19/2012 Appointment: María Elena Appiah WPtel: [address] [place] [address] BP CHECK 02/22/2012 Patient Education: Patient Medication Summary Completed 02/22/2012 Appointment: María Elena Appiahtel: [address] [place] [address] BP CHECK 02/21/2012 Patient Education: Patient Medication Summary Completed 02/21/2012 Visit Plan: Doxycycline and bactroban fo r foot Supportive care on ankles and knees Add norvasc for BP 02/20/2012 Appointment: María Elena Appiah WPtel: [address] [place] [address] ER Follow UP 02/20/2012 Patient Education: Patient Medication Summary Completed 02/20/2012 Appointment: María Elena Appiah WPtel: [address] [place] [address] ACUTE ILLNESS 01/30/2012 Patient Education: Patient Medication Summary Completed 01/30/2012 Appointment: María Elena Appiahtel: [address] [place] [address] ACUTE ILLNESS 01/24/2012 Patient Education: Patient Medication Summary Completed 01/24/2012 Visit Plan: Daily back stretches, moist heat, Biofreeze prn OMT done 01/10/2012 Appointment: María Elena Appiah WPtel: [address] [place] [address] ACUTE ILLNESS 01/10/2012 Patient Education: Patient Medication Summary Completed 01/10/2012 Appointment: María Elena Appiahtel: [address] [place] [address] [place] FOLLOW UP 12/11/2011 Patient Education: Patient Medication Summary Completed 12/11/2011 Appointment: María Elena Appiah WPtel: [address] [place] [address] ACUTE ILLNESS 11/09/2011 Patient Education: Patient Medication Summary Completed 11/09/2011 Appointment: María Elena Appiahtel: [address] [place], [place] [id number] ACUTE ILLNESS 09/13/2011 Patient Education: Patient Medication Summary Completed 09/13/2011 Visit Plan: Check CBC, TSH, Free T4, CMP , ESR, Vit D, B12 now Start Prednisone today 08/31/2011 Appointment: María Elena Appiah WPtel: [address] [place], [place] [phone] ACUTE ILLNESS 08/31/2011 Patient Education: Patient Medication Summary Completed 08/31/2011 Appointment: María Elena Appiah WPtel: [address] [place], [place] [phone] [place] INJECTION 07/20/2011 Patient Education: Patient Medication Summary Completed 07/20/2011 Visit Plan: Continue current meds Monite r BP Cont stretches from PT 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 07/06/2011 Appointment: María Elena Appiah WPtel: [address] [place] [address] FOLLOW UP 07/06/2011 Patient Education: Patient Medication Summary Completed 07/06/2011 Appointment: María Elena Appiahtel: [address] [place] [address] BP CHECK 06/06/2011 Patient Education: Patient Medication Summary Completed 06/06/2011 Visit Plan: Add Bystolic at 2.5mg QAM Ad d Robaxin 750mg 2 po q HS BP check in 2wks 05/22/2011 Appointment: María Elena Appiah WPtel: [address] [place], [place] [phone] FOLLOW UP 05/22/2011 Patient Education: Patient Medication Summary Completed 05/22/2011 Appointment: María Elena Appiahtel: [address] [place], [place] [id number] ER Follow UP 05/09/2011 Patient Education: Patient Medication Summary Completed 05/09/2011 Appointment: María Elena Appiah WPtel: [address] [place] [address] FOLLOW UP 02/22/2011 Visit Plan: Rx written for Hydrocodone 1 0/325mg #240 See Ortho 02/14/2011 Appointment: María Elena Appiah WPtel: [address] [place] [address] [place] OMT 02/14/2011 Patient Education: Patient Medication [...] lab work. 02/03/2011 Appointment: Lashawn Eckert WPtel: [address] [place] [address] ACUTE ILLNESS 02/03/2011 Patient Education: Patient Medication Summary Completed 02/03/2011 Visit Plan: OMT done Cont daily stretche s 01/31/2011 Appointment: María Elena Appiah WPtel: [address] [place] [address] ACUTE ILLNESS 01/31/2011 Patient Education: Patient Medication Summary Completed 01/31/2011 Visit Plan: Continue pain meds OMT done Proceed with PT No work this summer01/25/2011 Appointment: María Elena Appiah WPtel: [address] [place] [address] ACUTE ILLNESS 01/25/2011 Patient Education: Patient Medication Summary Completed 01/25/2011 Visit Plan: Start PT Long discussion abo ut getting pain meds from only us and can only have max of 4grams of tylenol per day Change to Hydrocodone 10/325mg 1- 2 po TID prn pain--#180 called to [facility] 01/18/2011 Appointment: María Elena Appiahtel: [address] [place] [address] FOLLOW UP 01/18/2011 Patient Education: Patient Medication Summary Completed 01/18/2011 Visit Plan: Daily back stretches, moist heat, Biofreeze prn 11/29/2010 Appointment: María Elena Appiahtel: [address] [place] [address] ER Follow UP 11/29/2010 Patient Education: Patient Medication Summary Completed 11/29/2010 Visit Plan: Saline nasal flushes prn. Ty lenol/Motrin prn headache. Notify if persists/symptoms worsening. Finish augmentin Add Medrol Dose Pack 10/10/2010 Appointment: María Elena Appiahtel: [address] [place] [address] ACUTE ILLNESS 10/10/2010 Patient Education: Patient Medication Summary Completed 10/10/2010 Visit Plan: Cryotherapy x3 to multiple l esions on both forearms 07/19/2010 Appointment: María Elena Appiahtel: [address] [place] [address] OFFICE SURGERY 07/19/2010 Patient Education: Patient Medication Summary Completed 07/19/2010 Appointment: María Elena Appiahtel: [address] [place] [address] BP CHECK 07/06/2010 Patient Education: Patient Medication Summary Completed 07/06/2010 Appointment: María Elena Appiahtel: [address] [place] [address] BP CHECK 06/30/2010 Patient Education: Patient Medication Summary Completed 06/30/2010 Appointment: María Elena Appiahtel: [address] [place] [address] BP CHECK 06/20/2010 Patient Education: Patient Medication Summary Completed 06/20/2010 Visit Plan: Change Diovan to Exforge 160 /5mg QD OMT done to thoracics BP check in 2wks 06/07/2010 Appointment: María Elena Appiahtel: [address] [place] [address] FOLLOW UP 06/07/2010 Patient Education: Patient Medication Summary Completed 06/07/2010 Appointment: María Elena Appiah WPtel: [address] [place] [address] BP CHECK 06/03/2010 Patient Education: Patient Medication Summary Completed 06/03/2010 Appointment: María Elena Appiahtel: [address] [place] [address] BP CHECK 06/01/2010 Patient Education: Patient Medication Summary Completed 06/01/2010 Visit Plan: Irritated skin tags to left neck x2 excised at base with scissors and base cauterized 05/30/2010 Appointment: María Elena Appiah WPtel: [address] [place] [address] OFFICE SURGERY 05/30/2010 Patient Education: Patient Medication Summary Completed 05/30/2010 Visit Plan: Saline nasal flushes prn. Ty lenol/Motrin prn headache. Notify if persists/symptoms worsening. Restart Nasonex Has allergy testing set for May 25 04/27/2010 Appointment: María Elena Appiah WPtel: [address] [place] [address] ACUTE ILLNESS 04/27/2010 Patient Education: Patient Medication Summary Completed 04/27/2010 Visit Plan: Saline nasal flushes prn. Ty lenol/Motrin prn headache. Notify if persists/symptoms worsening. Omnaris BID plus injections 04/05/2010 Appointment: María Elena Appiah WPtel: [address] [place] [address] ACUTE ILLNESS 04/05/2010 Patient Education: Patient Medication Summary Completed 04/05/2010 Visit Plan: Saline nasal flushes prn. Ty lenol/Motrin prn headache. Notify if persists/symptoms worsening. 03/09/2010 Appointment: María Elena Appiah WPtel: [address] [place] [address] ACUTE ILLNESS 03/09/2010 Patient Education: Patient Medication Summary Completed 03/09/2010 Visit Plan: Cont Clonidine as is Cont Pr emarin Fwup with surgery as scheduled 03/03/2010 Appointment: María Elena Appiah WPtel: [address] [place] [address] FOLLOW UP 03/03/2010 Patient Education: Patient Medication Summary Completed 03/03/2010 Visit Plan: Check Pelvic US now Discusse tacho Dand C vs Hysterectomy 01/17/2010 Appointment: María Elena Appiah WPtel: [address] [place] [address] ACUTE ILLNESS 01/17/2010 Patient Education: Patient Medication Summary Completed 01/17/2010 Visit Plan: Check fasting lab and schedu le Mammogram 2gm Na Diet Trial of Ambien 10mg qhs Fwup pending lab results 12/27/2009 Appointment: María Elena Appiah WPtel: [address] [place] [address] ESTABLISHED PATIENT 12/27/2009 Patient Education: Patient Medication Summary Completed 12/27/2009 Referral: Canelo Overton WPtel: [address] [id number] [place] Referral Initiated Referral: Philipp Flores WPtel: [address] [id number] [place] Referral Appointment Requested Instructions Comment . [...] to rest and hydrate. Discussed stroke and [place] symptoms. Pt. instructed to seek ER eval [...]
--- OUTSIDE RECORDS SUMMARY | 2020-03-13 04:04 | XMS REPORT | CCD ---
Author Author Gale Appiah D.O. 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 Name Role Phone María Elena Appiah D.O., PP Unavailable CCM Unavailable Summary Purpose Interface Exchange Insurance Providers Payer name Policy type / Coverage type Covered constitution party ID Effective Begin Date Effective End Date [facility] Commercial Insurance [id number] Unknown Family History Family History data not found Social History Social History Element Codes Description Effective Dates Tobacco history SNOMED CT: [id number] Never smoker 05/22/2011 Allergies, Adverse Reactions, Alerts [...] Instructions doxycycline hyclate 100 mg capsule RxNorm: 0195936 1 Cap johanna(s) Oral two times a day 03/04/2020 03/18/2020 Active prednisone 20 mg tablet RxNorm: 393750 1 Tablet(s) Oral two sawyer es a day 03/04/2020 03/09/2020 Active cyclobenzaprine 10 mg tablet RxNorm: 552536 TAKE ONE TA BLET BY MOUTH THREE TIMES A DAY NEEDED FOR MUSCLE SPASMS 02/27/2020 No Stop Date Active hydrocodone 10 mg-acetaminophen 325 mg tablet RxNorm: 469663 1-2 Tablet(s) Oral three times a day as needed for pain 02/27/2020 02/27/2020 Inactive Premarin 1.25 mg tablet RxNorm: 856399 1 Tablet(s) Oral QD 02/16/20 20 05/15/2020 Active celecoxib 200 mg capsule RxNorm: 770740 1 Capsule(s) Or al two times a day as needed for pain 02/16/2020 05/15/2020 Active Farxiga 10 mg tablet RxNorm: 5751713 1 Tablet(s) Oral QAM 02/13/2020 05/13/2020 Active Farxiga 10 mg tablet RxNorm: 2376306 1 Tablet(s) Oral QAM 02/13/2020 02/12/2020 Inactive Keflex 500 mg capsule RxNorm: 538552 1 Capsule(s) Oral two time s a day 02/12/2020 02/19/2020 Inactive Lipitor 10 mg tablet RxNorm: 352991 TAKE ONE TABLET BY MOUTH DAILY 01/23/2020 No Stop Date Active Januvia 100 mg tablet RxNorm: 513778 TAKE ONE TABLET BY MOUTH DAILY 01/22/2020 No Stop Date Active gabapentin 300 mg capsule RxNorm: 123365 TAKE ONE CAPSU LE BY MOUTH EVERY NIGHT AT BEDTIME 01/22/2020 No Stop Date Active allopurinol 300 mg tablet RxNorm: 630208 TAKE ONE TABLET BY LOPEZ TH DAILY 01/22/2020 No Stop Date Active Klor-Con 8 mEq tablet,extended release RxNorm: 243927 T FARRUKH ONE TABLET BY MOUTH TWICE A DAY 01/22/2020 No Stop Date Active doxepin 25 mg capsule RxNorm: 5973428 TAKE ONE CAPSULE B Y MOUTH EVERY NIGHT AT BEDTIME NEEDED FOR SLEEP 01/22/2020 No Stop Date Active glimepiride 4 mg tablet RxNorm: 030210 1 Tablet(s) Oral two times a day replaces 2mg dose 01/13/2020 04/12/2020 Active lisinopril 40 mg tablet RxNorm: 900717 1 Tablet(s) Oral QD repl aces 20mg dose 01/13/2020 04/12/2020 Active hydrocodone 10 mg-acetaminophen 325 mg tablet RxNorm: 697323 1-2 Tablet(s) Oral three times a day as needed for pain 01/12/2020 02/26/2020 Inactive cyclobenzaprine 10 mg tablet RxNorm: 560622 TAKE ONE TA BLET BY MOUTH THREE TIMES A DAY NEEDED FOR MUSCLE SPASMS 01/05/2020 02/26/2020 Inactive triamterene 75 mg-hydrochlorothiazide 50 mg tablet RxNorm: 3 28217 TAKE ONE TABLET BY MOUTH DAILY 12/29/2019 No Stop Date Active Klor-Con 8 mEq tablet,extended release RxNorm: 506364 T FARRUKH ONE TABLET BY MOUTH TWICE A DAY 12/19/2019 01/21/2020 Inactive allopurinol 300 mg tablet RxNorm: 641269 TAKE ONE TABLET BY LOPEZ TH DAILY 12/19/2019 01/21/2020 Inactive glimepiride 2 mg tablet RxNorm: 966848 TAKE ONE TABLET BY MOUTH TWICE A DAY 12/19/2019 01/12/2020 Inactive hydrocodone 10 mg-acetaminophen 325 mg tablet RxNorm: 083233 1-2 Tablet(s) Oral three times a day as needed for pain 12/10/2019 01/11/2020 Inactive Januvia 100 mg tablet RxNorm: 262842 1 Tablet(s) Oral QD 11/20/2019 0 11/20/2019 Inactive glimepiride 2 mg tablet RxNorm: 700286 1 Tablet(s) Oral two sawyer es a day 11/20/2019 12/18/2019 Inactive cyclobenzaprine 10 mg tablet RxNorm: 178495 TAKE ONE TA BLET BY MOUTH THREE TIMES A DAY NEEDED FOR MUSCLE SPASMS 11/17/2019 01/04/2020 Inactive doxepin 25 mg capsule RxNorm: 5347926 TAKE ONE CAPSULE B Y MOUTH EVERY NIGHT AT BEDTIME NEEDED FOR SLEEP 11/16/2019 01/21/2020 Inactive Klor-Con 8 mEq tablet,extended release RxNorm: 218247 T FARRUKH ONE TABLET BY MOUTH TWICE A DAY 11/16/2019 12/18/2019 Inactive hydrocodone 10 mg-acetaminophen 325 mg tablet RxNorm: 611587 1-2 Tablet(s) Oral three times a day as needed for pain 11/10/2019 12/09/2019 Inactive cyclobenzaprine 10 mg tablet RxNorm: 900702 TAKE ONE TA BLET BY MOUTH THREE TIMES A DAY NEEDED FOR MUSCLE SPASMS 10/23/2019 11/16/2019 Inactive duloxetine 60 mg capsule,delayed release RxNorm: 004688 1 Capsu le(s) Oral QD 10/17/2019 04/13/2020 Active Singulair 10 mg tablet RxNorm: 579379 1 Tablet(s) Oral QD 10/17/2019 04/14/2020 Active metoprolol tartrate 100 mg tablet RxNorm: 227724 1 Tabl et(s) Oral two times a day 10/17/2019 04/13/2020 Active clonidine HCl 0.1 mg tablet RxNorm: 608645 1 Tablet(s) Oral fou r times a day 10/17/2019 04/13/2020 Active celecoxib 200 mg capsule RxNorm: 808940 1 Capsule(s) Or al two times a day as needed for pain 10/17/2019 02/15/2020 Inactive lisinopril 20 mg tablet RxNorm: 597655 1 Tablet(s) Oral QD 10/17/19 20 01/12/2020 Inactive gabapentin 300 mg capsule RxNorm: 168837 1 Capsule(s) O ral every night at bedtime 10/17/2019 01/15/2020 Inactive Klor-Con 8 mEq tablet,extended release RxNorm: 705024 1 Tablet(s) Oral two times a day 10/17/2019 11/15/2019 Inactive Januvia 100 mg tablet RxNorm: 784862 1 Tablet(s) Oral QD 10/17/2019 0 01/12/2020 Inactive Lipitor 10 mg tablet RxNorm: 141076 1 Tablet(s) Oral QD 10/17/2019 Inactive Steglatro 15 mg tablet RxNorm: 1740883 1 Tablet(s) Oral QD 10/17/19 20 02/12/2020 Inactive Glyxambi 25 mg-5 mg tablet RxNorm: 8137458 1 Tablet(s) Oral QD 01/202010/16/2019 Inactive Patient will bring in copay discount card as well Glyxambi 25 mg-5 mg tablet RxNorm: 0758086 1 Tablet(s) Oral QD 01/202010/14/2019 Inactive Patient will bring in copay discount card as well Keflex 500 mg capsule RxNorm: 310318 1 Capsule(s) Oral two time s a day 10/07/2019 10/14/2019 Inactive Premarin 1.25 mg tablet RxNorm: 516587 1 Tablet(s) Oral QD 09/30/19 20 02/15/2020 Inactive hydrocodone 10 mg-acetaminophen 325 mg tablet RxNorm: 216564 1-2 Tablet(s) Oral three times a day as needed for pain 09/30/2019 09/30/2019 Inactive baclofen 10 mg tablet RxNorm: 543206 TAKE ONE TABLET BY MOUTH THREE TIMES A DAY NEEDED 09/19/2019 No Stop Date Active gabapentin 300 mg capsule RxNorm: 387767 TAKE ONE CAPSU LE BY MOUTH EVERY NIGHT AT BEDTIME 09/19/2019 10/16/2019 Inactive Klor-Con 8 mEq tablet,extended release RxNorm: 034247 T FARRUKH ONE TABLET BY MOUTH TWICE A DAY 1 Tablet(s) Oral two times a day 09/19/2019 10/16/2019 Renu ctive hydrocodone 10 mg-acetaminophen 325 mg tablet RxNorm: 978582 1-2 Tablet(s) Oral three times a day as needed for pain 09/19/2019 09/29/2019 Inactive duloxetine 60 mg capsule,delayed release RxNorm: 985998 TAKE ONE CAPSULE BY MOUTH DAILY 09/11/2019 10/16/2019 Inactive Lipitor 10 mg tablet RxNorm: 453369 TAKE ONE TABLET BY MOUTH AT BEDTIME 09/11/2019 10/16/2019 Inactive lisinopril 20 mg tablet RxNorm: 637950 TAKE ONE TABLET BY MOUTH DAILY .... THIS REPLACE 10MG TABLETS 09/11/2019 10/16/2019 Inactive triamterene 75 mg-hydrochlorothiazide 50 mg tablet RxNorm: 3 38162 TAKE ONE TABLET BY MOUTH DAILY 09/11/2019 12/28/2019 Inactive allopurinol 300 mg tablet RxNorm: 789634 TAKE ONE TABLET BY LOPEZ TH DAILY 09/11/2019 12/18/2019 Inactive celecoxib 200 mg capsule RxNorm: 670930 TAKE ONE CAPSUL E BY MOUTH TWICE A DAY NEEDED FOR PAIN 09/11/2019 10/16/2019 Inactive clonidine HCl 0.1 mg tablet RxNorm: 930522 TAKE ONE TAB LET BY MOUTH FOUR TIMES A DAY 09/11/2019 10/16/2019 Inactive doxepin 25 mg capsule RxNorm: 3716783 1 Capsule(s) Oral every night at bedtime as needed for sleep 08/21/2019 11/15/2019 Inactive hydrocodone 10 mg-acetaminophen 325 mg tablet RxNorm: 049830 1-2 Tablet(s) PO TID 08/12/2019 09/29/2019 Inactive as needed for pa in - Previous quantity #240, will start dosing for #180 in April [address] Ignacio. Medrol (Dustin) 4 mg tablets in a dose pack RxNorm: 657866 Tablet(s) Oral As Directed 07/21/2019 09/29/2019 Inactive Premarin 1.25 mg tablet RxNorm: 263192 1 Tablet(s) Oral QD 07/02/2009/29/2019 Inactive hydrocodone 10 mg-acetaminophen 325 mg tablet RxNorm: 833480 1-2 Tablet(s) PO TID 07/01/2019 08/11/2019 Inactive as needed for pa in - Previous quantity #240, will start dosing for #180 in April [address] Ignacio. gabapentin 300 mg capsule RxNorm: 058305 1 Capsule(s) PO QHS 201809/18/2019 Inactive celecoxib 200 mg capsule RxNorm: 986673 1 Capsule(s) Or al two times a day as needed for pain 06/27/2019 06/27/2019 Inactive doxepin 25 mg capsule RxNorm: 1690568 TAKE ONE CAPSULE B Y MOUTH EVERY NIGHT AT BEDTIME NEEDED FOR SLEEP 06/24/2019 08/20/2019 Inactive Singulair 10 mg tablet RxNorm: 548775 TAKE ONE TABLET BY MOUTH JOSÉ Y 06/24/2019 10/16/2019 Inactive furosemide 40 mg tablet RxNorm: 311670 TAKE ONE TABLET BY MOUTH EVERY MORNING NEEDED FOR EDEMA . TAKE WITH POTASSIUM 06/24/2019 01/12/2020 Inactive lisinopril 20 mg tablet RxNorm: 036667 TAKE ONE TABLET BY MOUTH DAILY .... THIS REPLACE 10MG TABLETS 06/24/2019 09/10/2019 Inactive nystatin-triamcinolone 100,000 unit/g-0.1 % topical cream Rx Norm: 3923318 1 Application Topical two times a day 06/12/2019 06/19/2019 Inactive apply BID for 1 week nystatin-triamcinolone 100,000 unit/g-0.1 % topical cream Rx Norm: 5870393 1 Application Topical two times a day 06/12/2019 06/11/2019 Inactive apply BID for 1 week hydrocodone 10 mg-acetaminophen 325 mg tablet RxNorm: 523521 1-2 Tablet(s) PO QID as needed for pain MUST LAST 30 DAYS 05/28/2019 06/26/2019 Inactiv e (Response to an electronic controlled substance refill request - RxReferenceNumber: [id number]) baclofen 20 mg tablet RxNorm: 106184 1 Tablet(s) PO TID as needed for muscle spasm 05/19/2019 05/27/2019 Inactive gabapentin 300 mg capsule RxNorm: 976442 1 Capsule(s) PO QHS 201805/27/2019 Inactive lisinopril 20 mg tablet RxNorm: 635445 1 Tablet(s) PO Q D TAKE ONE TABLET BY MOUTH DAILY, REPLACES 10 MG DOSE 05/19/2019 06/23/2019 Inactive doxepin 25 mg capsule RxNorm: 0526558 TAKE ONE CAPSULE B Y MOUTH EVERY NIGHT AT BEDTIME NEEDED FOR SLEEP 05/16/2019 06/14/2019 Inactive lisinopril 20 mg tablet RxNorm: 127058 TAKE ONE TABLET BY MOUTH DAILY, REPLACES 10 MG DOSE 05/16/2019 05/18/2019 Inactive Singulair 10 mg tablet RxNorm: 732081 TAKE ONE TABLET BY MOUTH JOSÉ Y 05/16/2019 06/14/2019 Inactive gabapentin 300 mg capsule RxNorm: 342316 1 Capsule(s) PO QHS 201805/04/2019 Inactive estropipate 1.5 mg tablet RxNorm: 751709 1 Tablet(s) PO QD 05/05/2005/27/2019 Inactive estropipate 1.5 mg tablet RxNorm: 714461 1 Tablet(s) PO QD 05/05/20 19 05/04/2019 Inactive gabapentin 300 mg capsule RxNorm: 130823 1 Capsule(s) PO QHS 201805/18/2019 Inactive hydrocodone 10 mg-acetaminophen 325 mg tablet RxNorm: 196707 1-2 Tablet(s) PO QID as needed for pain MUST LAST 30 DAYS 04/25/2019 05/24/2019 Inactiv e (Response to an electronic controlled substance refill request - RxReferenceNumber: [id number]) cyclobenzaprine 10 mg tablet RxNorm: 302699 TAKE ONE TA BLET BY MOUTH THREE TIMES A DAY NEEDED FOR MUSCLE SPASMS 04/24/2019 05/18/2019 Inactive metoprolol tartrate 100 mg tablet RxNorm: 645038 TAKE O NE TABLET BY MOUTH TWICE A DAY 04/24/2019 10/16/2019 Inactive Lyrica 75 mg capsule RxNorm: 541919 1 Capsule(s) PO QHS 03/25/2019 Inactive duloxetine 60 mg capsule,delayed release RxNorm: 663592 TAKE ONE CAPSULE BY MOUTH DAILY 03/21/2019 05/19/2019 Inactive triamterene 75 mg-hydrochlorothiazide 50 mg tablet RxNorm: 3 75820 TAKE ONE TABLET BY MOUTH DAILY 03/21/2019 05/19/2019 Inactive Klor-Con 8 mEq tablet,extended release RxNorm: 299017 T FARRUKH ONE TABLET BY MOUTH TWICE A DAY 03/21/2019 09/18/2019 Inactive Lipitor 10 mg tablet RxNorm: 671384 TAKE ONE TABLET BY MOUTH AT BEDTIME 03/21/2019 09/10/2019 Inactive clonidine HCl 0.1 mg tablet RxNorm: 024400 TAKE ONE TAB LET BY MOUTH FOUR TIMES A DAY 03/21/2019 05/19/2019 Inactive allopurinol 300 mg tablet RxNorm: 230613 TAKE ONE TABLET BY LOPEZ TH DAILY 03/21/2019 05/19/2019 Inactive hydrocodone 10 mg-acetaminophen 325 mg tablet RxNorm: 907769 1-2 Tablet(s) PO QID as needed for pain MUST LAST 30 DAYS 02/28/2019 03/29/2019 Inactiv e (Response to an electronic controlled substance refill request - RxReferenceNumber: [id number]) furosemide 40 mg tablet RxNorm: 035977 TAKE ONE TABLET BY MOUTH EVERY MORNING NEEDED FOR EDEMA . TAKE WITH POTASSIUM 02/21/2019 03/22/2019 Inactive cyclobenzaprine 10 mg tablet RxNorm: 576156 TAKE ONE TA BLET BY MOUTH THREE TIMES A DAY NEEDED FOR MUSCLE SPASMS 02/21/2019 04/21/2019 Inactive lisinopril 20 mg tablet RxNorm: 073961 TAKE ONE TABLET BY MOUTH DAILY, REPLACES 10 MG DOSE 02/21/2019 05/15/2019 Inactive doxepin 25 mg capsule RxNorm: 4157386 TAKE ONE CAPSULE B Y MOUTH EVERY NIGHT AT BEDTIME NEEDED FOR SLEEP 02/21/2019 05/15/2019 Inactive nystatin 100,000 unit/gram topical cream RxNorm: 700548 APPLY TO AFFECTED AREA(S) TWO TIMES A DAY 02/21/2019 03/22/2019 Inactive estradiol 1 mg tablet RxNorm: 008958 2 Tablet(s) PO QD replaces premarin 01/22/2019 05/04/2019 Inactive lisinopril 20 mg tablet RxNorm: 447724 TAKE ONE TABLET BY MOUTH DAILY, REPLACES 10 MG DOSE 01/20/2019 02/18/2019 Inactive cyclobenzaprine 10 mg tablet RxNorm: 254131 TAKE ONE TA BLET BY MOUTH THREE TIMES A DAY NEEDED FOR MUSCLE SPASMS 01/20/2019 02/18/2019 Inactive metoprolol tartrate 100 mg tablet RxNorm: 563608 TAKE O NE TABLET BY MOUTH TWICE A DAY 01/20/2019 02/18/2019 Inactive cyclobenzaprine 10 mg tablet RxNorm: 396348 TAKE ONE TA BLET BY MOUTH THREE TIMES A DAY NEEDED FOR MUSCLE SPASMS 12/19/2018 01/17/2019 Inactive lisinopril 20 mg tablet RxNorm: 624610 TAKE ONE TABLET BY MOUTH DAILY, REPLACES 10 MG DOSE 12/19/2018 01/17/2019 Inactive duloxetine 60 mg capsule,delayed release RxNorm: 608089 TAKE ONE CAPSULE BY MOUTH DAILY 12/19/2018 01/17/2019 Inactive Lipitor 10 mg tablet RxNorm: 635208 TAKE ONE TABLET BY MOUTH AT BEDTIME 12/19/2018 01/17/2019 Inactive cyclobenzaprine 10 mg tablet RxNorm: 177058 1 Tablet(s) PO TID as needed for muscle spasm 11/19/2018 12/18/2018 Inactive Singulair 10 mg tablet RxNorm: 637813 1 Tablet(s) PO QD 11/19/2018 Inactive lisinopril 20 mg tablet RxNorm: 198314 TAKE ONE TABLET BY MOUTH DAILY, REPLACES 10 MG DOSE 11/15/2018 12/18/2018 Inactive hydrocodone 10 mg-acetaminophen 325 mg tablet RxNorm: 852276 1-2 Tablet(s) PO QID as needed for pain MUST LAST 30 DAYS 11/13/2018 12/12/2018 Inactiv e (Response to an electronic controlled substance refill request - RxReferenceNumber: [id number]) nystatin 100,000 unit/gram topical cream RxNorm: 625587 APPLY TO AFFECTED AREA(S) TWO TIMES A DAY 10/23/2018 11/06/2018 Inactive lisinopril 20 mg tablet RxNorm: 227834 1 Tablet(s) PO QD replac es 10mg dose 10/18/2018 11/14/2018 Inactive hydrocodone 10 mg-acetaminophen 325 mg tablet RxNorm: 349305 1-2 Tablet(s) QID as needed for pain MUST LAST 30 DAYS 10/08/2018 11/06/2018 Inactive (Response to an electronic controlled substance refill request - [facility]: [id number]) lisinopril 10 mg tablet RxNorm: 718044 1 Tablet(s) PO QD 10/03/2018 0 01/21/2019 Inactive Celebrex 200 mg capsule RxNorm: 881321 TAKE ONE CAPSULE BY MOUT H TWICE A DAY 09/30/2018 05/04/2019 Inactive cyclobenzaprine 10 mg tablet RxNorm: 401306 TAKE ONE TA BLET BY MOUTH THREE TIMES A DAY NEEDED FOR MUSCLE SPASMS 09/30/2018 11/18/2018 Inactive doxepin 25 mg capsule RxNorm: 7369745 TAKE ONE CAPSULE B Y MOUTH EVERY NIGHT AT BEDTIME NEEDED 09/05/2018 10/16/2018 Inactive omeprazole 40 mg capsule,delayed release RxNorm: 059140 TAKE ONE CAPSULE BY MOUTH DAILY 09/05/2018 01/21/2019 Inactive furosemide 40 mg tablet RxNorm: 719358 TAKE ONE TABLET BY MOUTH EVERY MORNING NEEDED FOR EDEMA . TAKE WITH POTASSIUM 09/05/2018 11/03/2018 Inactive phentermine 37.5 mg tablet RxNorm: 123703 1 Tablet(s) PO QAM 201701/21/2019 Inactive doxepin 25 mg capsule RxNorm: 4761670 1 Capsule(s) PO QH S as needed for sleep TAKE ONE CAPSULE BY MOUTH EVERY NIGHT AT BEDTIME NEEDED 08/27/2018 09/04/2018 Inactive Keflex 500 mg capsule RxNorm: 304812 1 Capsule(s) PO TID 08/09/2018 1 10/19/2017 Inactive Diflucan 100 mg tablet RxNorm: 945865 1 Tablet(s) PO QD 08/09/2018 Inactive Premarin 1.25 mg tablet RxNorm: 539843 2 Tablet(s) PO QD 08/09/2018 0 05/04/2019 Inactive Zofran ODT 4 mg disintegrating tablet RxNorm: 700828 1 Tablet(s) PO Q4H as needed for nausea 08/09/2018 01/21/2019 Inactive metoprolol tartrate 100 mg tablet RxNorm: 228686 TAKE O NE TABLET BY MOUTH TWICE A DAY 2018 10/04/2018 Inactive doxepin 25 mg capsule RxNorm: 0103234 TAKE ONE CAPSULE B Y MOUTH EVERY NIGHT AT BEDTIME NEEDED 2018 08/26/2018 Inactive cyclobenzaprine 10 mg tablet RxNorm: 350635 TAKE ONE TA BLET BY MOUTH THREE TIMES A DAY NEEDED FOR MUSCLE SPASMS 2018 09/29/2018 Inactive hydrocodone 10 mg-acetaminophen 325 mg tablet RxNorm: 261711 1-2 Tablet(s) QID as needed for pain MUST LAST 30 DAYS 07/29/2018 08/27/2018 Inactive (Response to an electronic controlled substance refill request - RxReferenceNumber: [id number]) nystatin 100,000 unit/gram topical powder RxNorm: 271890 Applic ation TOP BID 07/22/2018 08/04/2018 Inactive doxepin 25 mg capsule RxNorm: 4422474 1 Capsule(s) PO QHS as needed 07/22/2018 08/05/2018 Inactive triamterene 75 mg-hydrochlorothiazide 50 mg tablet RxNorm: 3 15745 TAKE ONE TABLET BY MOUTH DAILY 07/05/2018 10/02/2018 Inactive duloxetine 60 mg capsule,delayed release RxNorm: 261295 TAKE ONE CAPSULE BY MOUTH DAILY 07/05/2018 09/02/2018 Inactive Klor-Con 8 mEq tablet,extended release RxNorm: 577283 T FARRUKH ONE TABLET BY MOUTH TWICE A DAY 07/05/2018 10/02/2018 Inactive Lipitor 10 mg tablet RxNorm: 642641 TAKE ONE TABLET BY MOUTH AT BEDTIME 07/05/2018 09/02/2018 Inactive allopurinol 300 mg tablet RxNorm: 027534 TAKE ONE TABLET BY LOPEZ TH DAILY 07/05/2018 10/02/2018 Inactive clonidine HCl 0.1 mg tablet RxNorm: 938448 TAKE ONE TAB LET BY MOUTH FOUR TIMES A DAY 07/05/2018 10/02/2018 Inactive hydrocodone 10 mg-acetaminophen 325 mg tablet RxNorm: 912582 1-2 Tablet(s) QID as needed for pain MUST LAST 30 DAYS 06/28/2018 07/27/2018 Inactive (Response to an electronic controlled substance refill request - RxReferenceNumber: [id number]) MediHoney (calcium alginate-honey) 4" X 5" bandage RxNorm: 1 Application TOP QD 06/17/2018 06/26/2018 Inactive honey-hydrocolloid dressing 4" X 5" RxNorm: 1 Application TOP QD 06/17/2018 07/16/2018 Inactive furosemide 40 mg tablet RxNorm: 180942 TAKE ONE TABLET BY MOUTH EVERY MORNING NEEDED FOR EDEMA . TAKE WITH POTASSIUM 06/10/2018 07/09/2018 Inactive This is a refill request. hydrocodone 10 mg-acetaminophen 325 mg tablet RxNorm: 551826 1-2 Tablet(s) QID as needed for pain MUST LAST 30 DAYS 05/30/2018 06/27/2018 Inactive (Response to an electronic controlled substance refill request - RxReferenceNumber: [id number]) acyclovir 800 mg tablet RxNorm: 080253 1 Tablet(s) PO 5x day 201705/22/2018 Inactive Premarin 1.25 mg tablet RxNorm: 555454 1-2 Tablet(s) PO QD 05/15/20 18 07/13/2018 Inactive cyclobenzaprine 10 mg tablet RxNorm: 498848 1 Tablet(s) PO TID as needed for muscle spasm 05/09/2018 05/08/2018 Inactive Medrol (Dustin) 4 mg tablets in a dose pack RxNorm: 245550 Tablet(s) PO As Directed 05/02/2018 06/16/2018 Inactive hydrocodone 10 mg-acetaminophen 325 mg tablet RxNorm: 089152 1-2 Tablet(s) QID as needed for pain MUST LAST 30 DAYS 04/30/2018 05/29/2018 Inactive (Response to an electronic controlled substance refill request - RxReferenceNumber: [id number]) duloxetine 60 mg capsule,delayed release RxNorm: 264572 TAKE ONE CAPSULE BY MOUTH DAILY 04/16/2018 05/15/2018 Inactive Celebrex 200 mg capsule RxNorm: 528217 TAKE ONE CAPSULE BY MOUT H TWICE A DAY 04/16/2018 06/14/2018 Inactive Singulair 10 mg tablet RxNorm: 531779 TAKE ONE TABLET BY MOUTH JOSÉ Y 04/16/2018 11/19/2018 Inactive Lipitor 10 mg tablet RxNorm: 976177 TAKE ONE TABLET BY MOUTH AT BEDTIME 04/16/2018 05/15/2018 Inactive hydrocodone 10 mg-acetaminophen 325 mg tablet RxNorm: 424138 1-2 Tablet(s) QID as needed for pain MUST LAST 30 DAYS 03/29/2018 04/27/2018 Inactive (Response to an electronic controlled substance refill request - RxReferenceNumber: [id number]) cyclobenzaprine 10 mg tablet RxNorm: 359986 1 Tablet(s) PO TID as needed for muscle spasm 03/18/2018 05/09/2018 Inactive omeprazole 40 mg capsule,delayed release RxNorm: 463246 1 Capsu le(s) PO QD 02/26/2018 08/24/2018 Inactive hydrocodone 10 mg-acetaminophen 325 mg tablet RxNorm: 736880 1-2 Tablet(s) QID as needed for pain MUST LAST 30 DAYS 02/26/2018 03/27/2018 Inactive (Response to an electronic controlled substance refill request - RxReferenceNumber: [id number]) metoprolol tartrate 100 mg tablet RxNorm: 449218 1 Tablet(s) PO BID 02/18/2018 08/05/2018 Inactive Lyrica 75 mg capsule RxNorm: 548330 1 Capsule(s) PO QHS 01/30/2018 Inactive phentermine 37.5 mg tablet RxNorm: 577826 1 Tablet(s) PO QAM 201706/16/2018 Inactive hydrocodone 10 mg-acetaminophen 325 mg tablet RxNorm: 781416 1-2 Tablet(s) QID as needed for pain MUST LAST 30 DAYS 01/29/2018 02/25/2018 Inactive (Response to an electronic controlled substance refill request - RxReferenceNumber: [id number]) Klor-Con 8 mEq tablet,extended release RxNorm: 420724 1 Tablet( s) PO BID 01/14/2018 07/04/2018 Inactive allopurinol 300 mg tablet RxNorm: 840571 1 Tablet(s) PO QD 01/15/2007/04/2018 Inactive Lipitor 10 mg tablet RxNorm: 674137 1 Tablet(s) PO QHS 01/14/201812/2017 Inactive triamterene 75 mg-hydrochlorothiazide 50 mg tablet RxNorm: 3 36759 1 Tablet(s) PO QD 01/14/2018 07/04/2018 Inactive hydrocodone 10 mg-acetaminophen 325 mg tablet RxNorm: 490622 1-2 Tablet(s) QID as needed for pain MUST LAST 30 DAYS 12/27/2017 01/25/2018 Inactive (Response to an electronic controlled substance refill request - RxReferenceNumber: [id number]) Onglyza 5 mg tablet RxNorm: 468405 1 Tablet(s) PO QD 12/18/201701/29 Inactive metformin 500 mg tablet RxNorm: 334366 1 Tablet(s) PO BID 12/11/2017 12/10/2017 Inactive metformin 500 mg tablet RxNorm: 725968 1 Tablet(s) PO BID 12/11/2017 12/17/2017 Inactive furosemide 40 mg tablet RxNorm: 079574 1 Tablet(s) PO Q AM prn edema--take with potassium 12/11/2017 06/08/2018 Inactive cyclobenzaprine 10 mg tablet RxNorm: 591209 1 Tablet(s) PO TID as needed for muscle spasm 12/11/2017 03/18/2018 Inactive hydrocodone 10 mg-acetaminophen 325 mg tablet RxNorm: 628329 1-2 Tablet(s) QID as needed for pain MUST LAST 30 DAYS 10/23/2017 11/21/2017 Inactive (Response to an electronic controlled substance refill request - RxReferenceNumber: [id number]) Lipitor 10 mg tablet RxNorm: 817333 1 Tablet(s) PO QHS 10/16/201703/2018 Inactive cyclobenzaprine 10 mg tablet RxNorm: 218730 1 Tablet(s) PO TID as needed for muscle spasm 10/09/2017 12/10/2017 Inactive hydroxyzine HCl 25 mg tablet RxNorm: 850720 1 Tablet(s) PO BID as needed for anxiety 09/20/2017 01/29/2018 Inactive Effexor XR 75 mg capsule,extended release RxNorm: 204583 1 Caps ule(s) PO QD 09/20/2017 01/29/2018 Inactive metoprolol tartrate 100 mg tablet RxNorm: 314857 1 Tablet(s) PO BID 08/20/2017 02/18/2018 Inactive baclofen 20 mg tablet RxNorm: 816148 1 Tablet(s) PO TID as needed for muscle spasm 08/20/2017 01/21/2019 Inactive clonidine HCl 0.1 mg tablet RxNorm: 028347 1 Tablet(s) PO QID 08/2005/16/2018 Inactive Seroquel 25 mg tablet RxNorm: 230264 1 Tablet(s) PO QHS 08/17/2017 Inactive Seroquel 25 mg tablet RxNorm: 236674 1 Tablet(s) PO QHS 08/17/2017 Inactive Diflucan 100 mg tablet RxNorm: 979485 TAKE ONE TABLET BY MOUTH JOSÉ Y 07/25/2017 08/07/2017 Inactive hydrocodone 10 mg-acetaminophen 325 mg tablet RxNorm: 783115 1-2 Tablet(s) QID as needed for pain MUST LAST 30 DAYS 07/19/2017 08/17/2017 Inactive (Response to an electronic controlled substance refill request - RxReferenceNumber: [id number]) clindamycin 300 mg capsule RxNorm: 722543 1 Capsule(s) PO TID 07/1907/28/2017 Inactive clotrimazole-betamethasone 1 %-0.05 % topical cream RxNorm: 150818 Application TOP BID to elbow rash 07/19/2017 06/16/2018 Inactive Singulair 10 mg tablet RxNorm: 925176 Tablet(s) TAKE ONE TABLET BY MOUTH DAILY 07/18/2017 04/13/2018 Inactive triamterene 75 mg-hydrochlorothiazide 50 mg tablet RxNorm: 3 48738 1 Tablet(s) PO QD 07/18/2017 01/14/2018 Inactive Celebrex 200 mg capsule RxNorm: 292502 Capsule(s) TAKE ONE CAPSULE BY MOUTH TWICE A DAY 07/18/2017 10/15/2017 Inactive hydrocodone 10 mg-acetaminophen 325 mg tablet RxNorm: 648105 1-2 Tablet(s) QID as needed for pain MUST LAST 30 DAYS 06/19/2017 07/18/2017 Inactive (Response to an electronic controlled substance refill request - RxReferenceNumber: [id number]) hydrocodone 10 mg-acetaminophen 325 mg tablet RxNorm: 177151 1-2 Tablet(s) QID as needed for pain MUST LAST 30 DAYS 06/19/2017 06/18/2017 Inactive (Response to an electronic controlled substance refill request - RxReferenceNumber: [id number]) baclofen 20 mg tablet RxNorm: 325199 1 Tablet(s) PO TID as needed for muscle spasm 06/18/2017 08/20/2017 Inactive Medrol (Dustin) 4 mg tablets in a dose pack RxNorm: 641954 Tablet(s) PO As Directed 06/05/2017 07/18/2017 Inactive omeprazole 40 mg capsule,delayed release RxNorm: 549900 1 Capsu le(s) PO QD 04/20/2017 10/16/2017 Inactive Premarin 1.25 mg tablet RxNorm: 275776 1-2 Tablet(s) PO QD 04/11/20 17 05/15/2018 Inactive duloxetine 60 mg capsule,delayed release RxNorm: 357761 1 Capsu le(s) PO QD 04/11/2017 09/19/2017 Inactive furosemide 40 mg tablet RxNorm: 779271 1 Tablet(s) PO Q AM prn edema--take with potassium 04/11/2017 12/11/2017 Inactive Klor-Con 8 mEq tablet,extended release RxNorm: 599148 1 Tablet( s) PO BID 04/11/2017 01/14/2018 Inactive Lipitor 10 mg tablet RxNorm: 694521 1 Tablet(s) PO QHS 04/11/201702/2018 Inactive amlodipine 5 mg-benazepril 20 mg capsule RxNorm: 255896 1 Capsu le(s) PO QD 04/11/2017 01/29/2018 Inactive allopurinol 300 mg tablet RxNorm: 154075 1 Tablet(s) PO QD 04/11/20 17 01/14/2018 Inactive clonidine HCl 0.1 mg tablet RxNorm: 295083 1 Tablet(s) PO QID 04/0508/19/2017 Inactive baclofen 20 mg tablet RxNorm: 030092 1 Tablet(s) PO TID as needed for muscle spasm 04/02/2017 06/18/2017 Inactive Premarin 1.25 mg tablet RxNorm: 070689 1-2 Tablet(s) PO QD 03/20/20 17 04/10/2017 Inactive hydrocodone 10 mg-acetaminophen 325 mg tablet RxNorm: 341722 1-2 Tablet(s) QID as needed for pain MUST LAST 30 DAYS 03/14/2017 01/21/2019 Inactive (Response to an electronic controlled substance refill request - RxReferenceNumber: [id number]) metoprolol tartrate 100 mg tablet RxNorm: 656864 1 Tablet(s) PO BID 02/12/2017 08/20/2017 Inactive hydrocodone 10 mg-acetaminophen 325 mg tablet RxNorm: 284504 1-2 Tablet(s) QID as needed for pain MUST LAST 30 DAYS 02/08/2017 03/09/2017 Inactive (Response to an electronic controlled substance refill request - RxReferenceNumber: [id number]) metoprolol tartrate 100 mg tablet RxNorm: 479877 TAKE O NE TABLET BY MOUTH TWICE A DAY 01/11/2017 02/12/2017 Inactive metoprolol tartrate 100 mg tablet RxNorm: 649103 1 Tablet(s) PO BID 12/18/2016 12/17/2016 Inactive metoprolol tartrate 100 mg tablet RxNorm: 595758 1 Tablet(s) PO BID 12/18/2016 01/10/2017 Inactive furosemide 40 mg tablet RxNorm: 493248 1 Tablet(s) PO Q AM prn edema--take with potassium 12/13/2016 02/10/2017 Inactive amitriptyline 100 mg tablet RxNorm: 698578 1 Tablet(s) PO QHS 11/2812/12/2016 Inactive baclofen 20 mg tablet RxNorm: 798370 1 Tablet(s) PO TID as needed for muscle spasm 11/14/2016 04/01/2017 Inactive triamterene 75 mg-hydrochlorothiazide 50 mg tablet RxNorm: 3 64861 1 Tablet(s) PO QD 11/14/2016 11/13/2016 Inactive metolazone 2.5 mg tablet RxNorm: 367089 TAKE ONE TABLET BY MOUTH DAILY NEEDED FOR EDEMA 11/14/2016 12/12/2016 Inactive triamterene 75 mg-hydrochlorothiazide 50 mg tablet RxNorm: 3 90870 1 Tablet(s) PO QD 11/14/2016 07/18/2017 Inactive amitriptyline 50 mg tablet RxNorm: 353175 TAKE ONE TABL ET BY MOUTH AT BEDTIME NEEDED FOR SLEEP 11/14/2016 11/27/2016 Inactive Cymbalta 60 mg capsule,delayed release RxNorm: 870001 1 Capsule (s) PO QHS 11/14/2016 12/12/2016 Inactive clonidine HCl 0.1 mg tablet RxNorm: 685951 1 Tablet(s) PO QID 11/1304/04/2017 Inactive amitriptyline 50 mg tablet RxNorm: 760756 1 Tablet(s) P O QHS as needed for sleep 11/01/2016 11/27/2016 Inactive duloxetine 60 mg capsule,delayed release RxNorm: 830045 TAKE ONE CAPSULE BY MOUTH DAILY 10/20/2016 01/17/2017 Inactive allopurinol 300 mg tablet RxNorm: 296851 TAKE ONE TABLET BY LOPEZ TH DAILY 10/20/2016 01/16/2017 Inactive Lyrica 75 mg capsule RxNorm: 952119 TAKE ONE CAPSULE BY MOUTH EVERY NIGHT AT BEDTIME 10/20/2016 12/10/2016 Inactive Klor-Con 8 mEq tablet,extended release RxNorm: 515322 T FARRUKH ONE TABLET BY MOUTH TWICE A DAY 10/20/2016 01/17/2017 Inactive Celebrex 200 mg capsule RxNorm: 301164 TAKE ONE CAPSULE BY MOUT H TWICE A DAY 10/20/2016 07/18/2017 Inactive Bystolic 10 mg tablet RxNorm: 823162 TAKE ONE TABLET BY MOUTH EVERY NIGHT AT BEDTIME 10/20/2016 12/17/2016 Inactive amlodipine 5 mg-benazepril 20 mg capsule RxNorm: 754933 TAKE ONE CAPSULE BY MOUTH EVERY NIGHT AT BEDTIME -- TO REPLACE AMLODOPINE 10/20/20162016 Inactive Lipitor 10 mg tablet RxNorm: 604711 TAKE ONE TABLET BY MOUTH EVERY NIGHT AT BEDTIME 10/20/2016 01/17/2017 Inactive alprazolam 0.5 mg tablet RxNorm: 269884 3 Tablet(s) PO QHS as needed for sleep/anxiety 09/20/2016 10/31/2016 Inactive Tamiflu 75 mg capsule RxNorm: 203032 1 Capsule(s) PO QD 09/19/2016 Inactive Lyrica 75 mg capsule RxNorm: 108225 1 Capsule(s) PO QHS 09/19/2016 Inactive prednisone 20 mg tablet RxNorm: 629197 1 Tablet(s) PO QD 08/10/2016 1 10/17/2015 Inactive doxycycline hyclate 100 mg capsule RxNorm: 7823072 1 Capsule(s) PO BID 08/10/2016 08/19/2016 Inactive Medrol (Dustin) 4 mg tablets in a dose pack RxNorm: 620742 Tablet(s) PO As Directed 07/31/2016 08/22/2016 Inactive Singulair 10 mg tablet RxNorm: 265055 TAKE ONE TABLET BY MOUTH JOSÉ Y 07/27/2016 07/18/2017 Inactive hydrocodone 10 mg-acetaminophen 325 mg tablet RxNorm: 129970 1-2 Tablet(s) QID as needed for pain MUST LAST 30 DAYS 07/26/2016 08/24/2016 Inactive (Response to an electronic controlled substance refill request - RxReferenceNumber: [id number]) alprazolam 0.5 mg tablet RxNorm: 552013 3 Tablet(s) PO QHS as needed for anxiety or sleep 07/26/2016 09/20/2016 Inactive clindamycin 300 mg capsule RxNorm: 356481 1 Capsule(s) PO TID 07/2007/29/2016 Inactive Diflucan 100 mg tablet RxNorm: 159765 1 Tablet(s) PO QD 07/20/2016 Inactive Levaquin 500 mg tablet RxNorm: 377533 1 Tablet(s) PO QD 07/17/2016 Inactive Levaquin 500 mg tablet RxNorm: 279520 1 Tablet(s) PO QD 07/10/2016 Inactive Levaquin 500 mg tablet RxNorm: 419056 1 Tablet(s) PO QD 07/10/2016 Inactive mupirocin 2 % topical ointment RxNorm: 832498 TOP Apply topically to affected areas twice daily 07/06/2016 09/18/2016 Inactive Singulair 10 mg tablet RxNorm: 976566 TAKE ONE TABLET BY MOUTH JOSÉ Y 06/21/2016 01/21/2019 Inactive alprazolam 0.5 mg tablet RxNorm: 603470 TAKE THREE TABL ETS BY MOUTH AT BEDTIME NEEDED FOR SLEEP OR STRESS 05/22/2016 06/20/2016 Inactive triamterene 75 mg-hydrochlorothiazide 50 mg tablet RxNorm: 3 47103 1 Tablet(s) PO QD 04/26/2016 01/12/2020 Inactive Premarin 1.25 mg tablet RxNorm: 388957 1-2 Tablet(s) PO QD 04/26/20 16 03/20/2017 Inactive Klor-Con 8 mEq tablet,extended release RxNorm: 650431 1 Tablet( s) PO BID 04/26/2016 10/19/2016 Inactive Celebrex 200 mg capsule RxNorm: 191246 1 Capsule(s) PO BID TAKE ONE CAPSULE BY MOUTH EVERY DAY 04/26/2016 10/19/2016 Inactive Lipitor 10 mg tablet RxNorm: 772442 1 Tablet(s) PO QHS 04/26/201605/2017 Inactive allopurinol 300 mg tablet RxNorm: 212455 1 Tablet(s) PO QD TAKE ONE TABLET BY MOUTH EVERY DAY 04/26/2016 10/19/2016 Inactive amlodipine 5 mg-benazepril 20 mg capsule RxNorm: 997350 1 Capsule(s) PO QHS replaces amlodopine 04/26/2016 10/19/2016 Inactive duloxetine 60 mg capsule,delayed release RxNorm: 598167 1 Capsu le(s) PO QD 04/26/2016 10/19/2016 Inactive Bystolic 10 mg tablet RxNorm: 308794 1 Tablet(s) PO QHS 04/26/2016 Inactive Singulair 10 mg tablet RxNorm: 417383 1 Tablet(s) PO QD TAKE ONE TABLET BY MOUTH DAILY 04/26/2016 06/20/2016 Inactive clonidine HCl 0.1 mg tablet RxNorm: 632953 1 Tablet(s) PO QID 04/2610/22/2016 Inactive hydrocodone 10 mg-acetaminophen 325 mg tablet RxNorm: 790215 1-2 Tablet(s) QID as needed for pain TAKE ONE TO TWO TABLETS BY MOUTH FOUR TIMES A DAY . MUST LAST 30 DAYS 03/31/2016 04/29/2016 Inactive (Response to an electronic controlled substance refill request - RxReferenceNumber: [id number]) Klor-Con 8 mEq tablet,extended release RxNorm: 441607 T FARRUKH ONE TABLET BY MOUTH TWICE A DAY 03/24/2016 09/29/2019 Inactive prednisone 20 mg tablet RxNorm: 759721 1 Tablet(s) PO QD 03/09/2016 0 03/08/2016 Inactive prednisone 20 mg tablet RxNorm: 573635 1 Tablet(s) PO QD 03/09/2016 0 03/13/2016 Inactive alprazolam 0.5 mg tablet RxNorm: 203697 3 Tablet(s) PO QHS as needed for sleep/stress 03/02/2016 01/21/2019 Inactive mupirocin 2 % topical ointment RxNorm: 163325 TOP twice daily to affected areas of face and neck 02/21/2016 04/25/2016 Inactive clonidine HCl 0.1 mg tablet RxNorm: 153855 TAKE ONE TAB LET BY MOUTH FOUR TIMES A DAY 02/15/2016 09/29/2019 Inactive clonidine HCl 0.1 mg tablet RxNorm: 779739 1 Tablet(s) PO QID 02/1404/25/2016 Inactive Premarin 1.25 mg tablet RxNorm: 143105 1-2 Tablet(s) PO QD 02/15/20 16 03/15/2016 Inactive Klor-Con 8 mEq tablet,extended release RxNorm: 599644 T FARRUKH ONE TABLET BY MOUTH TWICE A DAY 02/15/2016 03/15/2016 Inactive potassium chloride ER 20 mEq tablet,extended release(part/cr yst) RxNorm: 483631 2 Tablet(s) PO BID 02/15/2016 03/15/2016 Inactive Macrobid 100 mg capsule RxNorm: 195042 1 Capsule(s) PO BID 01/24/20 16 01/30/2016 Inactive prednisone 20 mg tablet RxNorm: 457708 Take 3tabs PO QD x 2 days, then 2 tabs PO QD x 2 days, then 1 tab PO QD x 2 days, then 1/2 tab PO QDy x 2 days 12/23/2015 04/25/2016 Inactive Klor-Con 8 mEq tablet,extended release RxNorm: 537737 T FARRUKH ONE TABLET BY MOUTH TWICE A DAY 12/20/2015 02/14/2016 Inactive alprazolam 1 mg tablet RxNorm: 077424 1 1/2 Tablet(s) PO QHS 201501/23/2016 Inactive nystatin 100,000 unit/gram topical cream RxNorm: 764772 APPLY TO AFFECTED AREA(S) TWO TIMES A DAY 11/30/2015 12/14/2015 Inactive Singulair 10 mg tablet RxNorm: 435906 TAKE ONE TABLET BY MOUTH JOSÉ Y 11/18/2015 04/25/2016 Inactive allopurinol 300 mg tablet RxNorm: 181494 1 Tablet(s) PO QD TAKE ONE TABLET BY MOUTH EVERY DAY 10/26/2015 04/22/2016 Inactive Singulair 10 mg tablet RxNorm: 861137 TAKE ONE TABLET BY MOUTH JOSÉ Y 10/26/2015 11/17/2015 Inactive duloxetine 60 mg capsule,delayed release RxNorm: 792996 1 Capsu le(s) PO QD 10/26/2015 04/22/2016 Inactive triamterene 75 mg-hydrochlorothiazide 50 mg tablet RxNorm: 3 28460 1 Tablet(s) PO QD 10/26/2015 11/14/2016 Inactive potassium chloride ER 20 mEq tablet,extended release(part/cr yst) RxNorm: 590786 2 Tablet(s) PO BID 10/26/2015 02/14/2016 Inactive Lipitor 10 mg tablet RxNorm: 552535 1 Tablet(s) PO QHS 10/26/2015 Inactive amlodipine 5 mg-benazepril 20 mg capsule RxNorm: 831818 1 Capsule(s) PO QHS replaces amlodopine 10/26/2015 04/22/2016 Inactive Bystolic 10 mg tablet RxNorm: 566963 1 Tablet(s) PO QHS 10/26/2015 Inactive amlodipine 5 mg-benazepril 20 mg capsule RxNorm: 763690 1 Capsule(s) PO QHS replaces amlodopine 10/06/2015 10/25/2015 Inactive amlodipine 5 mg tablet RxNorm: 354042 1 Tablet(s) PO QHS 09/30/2015 0 04/25/2016 Inactive metolazone 2.5 mg tablet RxNorm: 516391 TAKE ONE TABLET BY MOUTH DAILY NEEDED FOR EDEMA 09/30/2015 01/21/2019 Inactive duloxetine 60 mg capsule,delayed release RxNorm: 313385 1 Capsu le(s) PO QD 09/30/2015 10/25/2015 Inactive cephalexin 500 mg capsule RxNorm: 494755 1 Capsule(s) PO BID 201509/23/2015 Inactive mupirocin 2 % topical ointment RxNorm: 577064 TOP twice daily to affected areas of face and neck 09/14/2015 02/20/2016 Inactive baclofen 20 mg tablet RxNorm: 363732 1 Tablet(s) PO TID as needed for muscle spasm 09/01/2015 11/14/2016 Inactive clonidine HCl 0.1 mg tablet RxNorm: 719394 1 Tablet(s) PO QID 09/0102/14/2016 Inactive alprazolam 1 mg tablet RxNorm: 451465 1 1/2 Tablet(s) PO QHS 201409/09/2015 Inactive baclofen 20 mg tablet RxNorm: 040774 1 Tablet(s) PO TID as needed for muscle spasm 07/23/2015 09/01/2015 Inactive omeprazole 40 mg capsule,delayed release RxNorm: 007836 1 Capsu le(s) PO QD 07/23/2015 04/25/2016 Inactive alprazolam 1 mg tablet RxNorm: 577327 1 1/2 Tablet(s) PO QHS 201408/10/2015 Inactive Bystolic 10 mg tablet RxNorm: 613715 1 Tablet(s) PO BID 06/24/2015 Inactive allopurinol 300 mg tablet RxNorm: 776023 1 Tablet(s) PO QD TAKE ONE TABLET BY MOUTH EVERY DAY 06/23/2015 10/20/2015 Inactive alprazolam 1 mg tablet RxNorm: 844034 1 1/2 Tablet(s) PO QHS 201407/06/2015 Inactive clonidine HCl 0.1 mg tablet RxNorm: 624439 1 Tablet(s) PO QID 06/0209/01/2015 Inactive clonidine HCl 0.1 mg tablet RxNorm: 616340 1 Tablet(s) PO QID 06/0206/01/2015 Inactive Cymbalta 60 mg capsule,delayed release RxNorm: 987514 1 Capsule (s) PO QHS 06/02/2015 08/30/2015 Inactive Cymbalta 60 mg capsule,delayed release RxNorm: 250922 1 Capsule (s) PO QHS 06/02/2015 06/01/2015 Inactive clonidine HCl 0.1 mg tablet RxNorm: 718907 1 Tablet(s) PO TID 05/3106/01/2015 Inactive replaces 0.2mg dose metolazone 2.5 mg tablet RxNorm: 636099 TAKE ONE TABLET BY MOUTH DAILY NEEDED FOR EDEMA 05/21/2015 06/19/2015 Inactive Singulair 10 mg tablet RxNorm: 696985 TAKE ONE TABLET BY MOUTH JOSÉ Y 05/21/2015 10/17/2015 Inactive Cymbalta 30 mg capsule,delayed release RxNorm: 939292 1 Capsule (s) PO QHS 05/20/2015 11/14/2016 Inactive betamethasone valerate 0.1 % topical cream RxNorm: 388755 Appli cation TOP BID 05/10/2015 04/25/2016 Inactive Bactroban 2 % topical ointment RxNorm: 154223 Application TOP BID 0 05/10/2015 06/20/2015 Inactive baclofen 20 mg tablet RxNorm: 895470 1 Tablet(s) PO TID as needed 0 04/26/2015 07/23/2015 Inactive Lipitor 10 mg tablet RxNorm: 271765 1 Tablet(s) PO QHS 04/26/201508/2016 Inactive clonidine HCl 0.1 mg tablet RxNorm: 752156 1 Tablet(s) PO TID 04/2605/30/2015 Inactive replaces 0.2mg dose Klor-Con 8 mEq tablet,extended release RxNorm: 780142 1 Tablet( s) PO BID 04/26/2015 04/25/2016 Inactive metolazone 2.5 mg tablet RxNorm: 693614 1 Tablet(s) PO QD as ne eded for edema 04/26/2015 04/25/2015 Inactive triamterene 75 mg-hydrochlorothiazide 50 mg tablet RxNorm: 3 93569 1 Tablet(s) PO QD 04/26/2015 10/22/2015 Inactive Premarin 1.25 mg tablet RxNorm: 595762 1-2 Tablet(s) PO QD 04/26/20 15 10/22/2015 Inactive Bystolic 10 mg tablet RxNorm: 675967 1 Tablet(s) PO QAM TAKE ONE TABLET BY MOUTH EVERY MORNING 04/23/2015 06/23/2015 Inactive clonidine HCl 0.1 mg tablet RxNorm: 833689 1 Tablet(s) PO TID 03/2304/25/2015 Inactive replaces 0.2mg dose nystatin 100,000 unit/gram topical cream RxNorm: 633959 Applica tion TOP BID 03/23/2015 06/20/2015 Inactive baclofen 20 mg tablet RxNorm: 038432 1 Tablet(s) PO TID as needed 0 03/23/2015 04/25/2015 Inactive Premarin 1.25 mg tablet RxNorm: 245388 1-2 Tablet(s) PO QD 03/23/20 15 04/25/2015 Inactive Klor-Con 8 mEq tablet,extended release RxNorm: 323414 1 Tablet( s) PO BID 03/23/2015 04/25/2015 Inactive cefdinir 300 mg capsule RxNorm: 478763 2 Capsule(s) PO QD 03/16/2015 03/25/2015 Inactive baclofen 20 mg tablet RxNorm: 117338 1 Tablet(s) PO TID as needed 0 03/02/2015 03/22/2015 Inactive allopurinol 300 mg tablet RxNorm: 658596 1 Tablet(s) PO QD TAKE ONE TABLET BY MOUTH EVERY DAY 02/22/2015 05/22/2015 Inactive Klor-Con M20 mEq tablet,extended release RxNorm: 764077 2 Tablet(s) PO BID to use with lasix 02/22/2015 06/20/2015 Inactive clonidine HCl 0.1 mg tablet RxNorm: 568480 1 Tablet(s) PO TID 02/1903/22/2015 Inactive replaces 0.2mg dose Lipitor 10 mg tablet RxNorm: 973481 1 Tablet(s) PO QHS 01/20/201506/2015 Inactive Lipitor 10 mg tablet RxNorm: 545501 1 Tablet(s) PO QHS 01/20/2015 Inactive Singulair 10 mg tablet RxNorm: 944776 1 Tablet(s) PO QD TAKE ONE TABLET BY MOUTH EVERY DAY 11/20/2014 05/18/2015 Inactive Lipitor 10 mg tablet RxNorm: 382010 1 Tablet(s) PO QHS 11/20/201408/2015 Inactive allopurinol 300 mg tablet RxNorm: 130523 1 Tablet(s) PO QD TAKE ONE TABLET BY MOUTH EVERY DAY 11/20/2014 02/16/2015 Inactive Bystolic 10 mg tablet RxNorm: 065413 1 Tablet(s) PO QAM TAKE ONE TABLET BY MOUTH EVERY MORNING 11/20/2014 04/22/2015 Inactive Klor-Con 8 mEq tablet,extended release RxNorm: 374769 1 Tablet( s) PO BID 11/20/2014 02/17/2015 Inactive baclofen 20 mg tablet RxNorm: 785323 1 Tablet(s) PO TID as needed 0 11/20/2014 01/21/2019 Inactive baclofen 20 mg tablet RxNorm: 914068 1 Tablet(s) PO TID as needed 0 10/27/2014 11/19/2014 Inactive baclofen 20 mg tablet RxNorm: 601243 1 Tablet(s) PO TID as needed 0 10/26/2014 03/01/2015 Inactive allopurinol 300 mg tablet RxNorm: 592986 1 Tablet(s) PO QD TAKE ONE TABLET BY MOUTH EVERY DAY 10/26/2014 11/20/2014 Inactive Bystolic 10 mg tablet RxNorm: 767501 1 Tablet(s) PO QAM TAKE ONE TABLET BY MOUTH EVERY MORNING 10/26/2014 11/20/2014 Inactive clonidine HCl 0.1 mg tablet RxNorm: 110874 1 Tablet(s) PO TID 09/2805/27/2019 Inactive replaces 0.2mg dose clonidine HCl 0.1 mg tablet RxNorm: 213944 1 Tablet(s) PO TID 09/2802/18/2015 Inactive replaces 0.2mg dose baclofen 20 mg tablet RxNorm: 396011 1 Tablet(s) PO TID as needed 1 11/01/2013 08/30/2014 Inactive Lipitor 10 mg tablet RxNorm: 443750 1 Tablet(s) PO QHS 08/31/2014 Inactive baclofen 20 mg tablet RxNorm: 062389 1 Tablet(s) PO TID as needed 1 11/01/2013 10/26/2014 Inactive triamterene 75 mg-hydrochlorothiazide 50 mg tablet RxNorm: 3 81493 1 Tablet(s) PO QD 08/31/2014 02/26/2015 Inactive Klor-Con 8 mEq tablet,extended release RxNorm: 371094 1 Tablet( s) PO BID 08/31/2014 11/20/2014 Inactive baclofen 20 mg tablet RxNorm: 170805 1 Tablet(s) PO TID as needed 1 09/30/2013 10/25/2014 Inactive baclofen 20 mg tablet RxNorm: 153041 1 Tablet(s) PO TID as needed 1 09/30/2013 08/31/2014 Inactive omeprazole 40 mg capsule,delayed release RxNorm: 340928 1 Capsu le(s) PO QD 07/21/2014 07/23/2015 Inactive Flonase 50 mcg/actuation nasal spray,suspension RxNorm: 8963 23 1 [place] NASAL BID 07/15/2014 04/09/2017 Inactive hydrocodone 10 mg-acetaminophen 325 mg tablet RxNorm: 197503 1-2 Tablet(s) QID as needed for pain TAKE ONE TO TWO TABLETS BY MOUTH FOUR TIMES A DAY . MUST LAST 30 DAYS 06/30/2014 07/27/2014 Inactive (Response to an electronic controlled substance refill request - RxReferenceNumber: [id number]) baclofen 20 mg tablet RxNorm: 523416 1 Tablet(s) PO TID as needed 1 07/31/2014 Inactive Singulair 10 mg tablet RxNorm: 417412 1 Tablet(s) PO QD TAKE ONE TABLET BY MOUTH EVERY DAY 05/25/2014 11/20/2014 Inactive Bystolic 10 mg tablet RxNorm: 398954 TAKE ONE TABLET BY MOUTH E VERY MORNING 05/25/2014 09/21/2014 Inactive allopurinol 300 mg tablet RxNorm: 002304 1 Tablet(s) PO QD TAKE ONE TABLET BY MOUTH EVERY DAY 05/25/2014 10/21/2014 Inactive baclofen 20 mg tablet RxNorm: 638805 1 Tablet(s) PO TID as needed 0 05/25/2014 06/29/2014 Inactive allopurinol 300 mg tablet RxNorm: 325059 TAKE ONE TABLET BY LOPEZ TH EVERY DAY 05/25/2014 09/21/2014 Inactive Singulair 10 mg tablet RxNorm: 797859 1 Tablet(s) PO QD TAKE ONE TABLET BY MOUTH EVERY DAY 05/25/2014 05/24/2014 Inactive Bystolic 10 mg tablet RxNorm: 678169 1 Tablet(s) PO QAM TAKE ONE TABLET BY MOUTH EVERY MORNING 05/25/2014 10/21/2014 Inactive metolazone 2.5 mg tablet RxNorm: 871484 1 Tablet(s) PO QD as ne eded for edema 05/18/2014 04/25/2015 Inactive Lasix 40 mg tablet RxNorm: 231756 1 Tablet(s) PO RAZA ramirez take potassium supplementation with this medication 05/14/2014 05/17/2014 Inactive hydrocodone 10 mg-acetaminophen 325 mg tablet RxNorm: 067096 1-2 Tablet(s) QID as needed for pain TAKE ONE TO TWO TABLETS BY MOUTH FOUR TIMES A DAY . MUST LAST 30 DAYS 05/07/2014 06/05/2014 Inactive (Response to an electronic controlled substance refill request - RxReferenceNumber: [id number]) alprazolam 0.5 mg tablet RxNorm: 725873 TAKE ONE TABLET BY MOUTH TWICE A DAY , MUST LAST 30 DAYS 05/07/2014 05/22/2016 Inactive (Response to a n electronic controlled substance refill request - RxReferenceNumber: [id number]) diclofenac sodium 75 mg tablet,delayed release RxNorm: 30052 6 1 Tablet(s) PO BID for pain 04/24/2014 07/20/2014 Inactive Celebrex 200 mg capsule RxNorm: 186317 TAKE ONE CAPSULE BY MOUT H EVERY DAY 04/24/2014 07/20/2014 Inactive alprazolam 0.5 mg tablet RxNorm: 191836 TAKE ONE TABLET BY MOUTH TWICE A DAY , MUST LAST 30 DAYS 03/24/2014 04/22/2014 Inactive (Response to a n electronic controlled substance refill request - RxReferenceNumber: [id number]) diclofenac sodium 75 mg tablet,delayed release RxNorm: 99577 6 1 Tablet(s) PO BID for pain 03/24/2014 04/24/2014 Inactive clonidine HCl 0.1 mg tablet RxNorm: 873745 1 Tablet(s) PO TID 03/2409/28/2014 Inactive replaces 0.2mg dose Klor-Con 8 mEq tablet,extended release RxNorm: 444488 1 Tablet( s) PO BID 02/26/2014 08/31/2014 Inactive diclofenac sodium 75 mg tablet,delayed release RxNorm: 74940 6 1 Tablet(s) PO BID for pain 02/25/2014 03/24/2014 Inactive hydrocodone 10 mg-acetaminophen 325 mg tablet RxNorm: 107902 1-2 Tablet(s) QID as needed for pain TAKE ONE TO TWO TABLETS BY MOUTH FOUR TIMES A DAY . MUST LAST 30 DAYS 02/25/2014 03/26/2014 Inactive (Response to an electronic controlled substance refill request - RxReferenceNumber: [id number]) alprazolam 0.5 mg tablet RxNorm: 444080 Tablet(s) PO BI D as needed for anxiety TAKE ONE TABLET BY MOUTH TWICE A DAY , MUST LAST 30 DAYS 02/25/2014 Inactive (Response to an electronic controlled [place] bstance refill request - RxReferenceNumber: [id number]) [AttnRPh: Saving apply/adjudicate RxGRP:SG20 RxBIN:[id number] RxPCN: ID#:[id number]] alprazolam 0.5 mg tablet RxNorm: 724558 Tablet(s) TAKE ONE TABLET BY MOUTH TWICE A DAY , MUST LAST 30 DAYS 01/27/2014 02/24/2014 Inactive (Respo nse to an electronic controlled substance refill request - RxReferenceNumber: [id number]) [AttnRPh: Saving apply/adjudicate RxGRP:SG20 RxBIN:[id number] RxPCN: ID#:[id number]] hydrocodone 10 mg-acetaminophen 325 mg tablet RxNorm: 491399 1-2 Tablet(s) QID as needed for pain TAKE ONE TO TWO TABLETS BY MOUTH FOUR TIMES A DAY . MUST LAST 30 DAYS 01/27/2014 02/24/2014 Inactive (Response to an electronic controlled substance refill request - RxReferenceNumber: [id number]) alprazolam 0.5 mg tablet RxNorm: 559448 TAKE ONE TABLET BY MOUTH TWICE A DAY , MUST LAST 30 DAYS 01/27/2014 01/26/2014 Inactive (Response to a n electronic controlled substance refill request - RxReferenceNumber: [id number]) Premarin 1.25 mg tablet RxNorm: 162569 1-2 Tablet(s) PO QD 01/28/20 14 07/25/2014 Inactive alprazolam 0.5 mg tablet RxNorm: 750259 TAKE ONE TABLET BY MOUTH TWICE A DAY , MUST LAST 30 DAYS 01/27/2014 01/27/2014 Inactive (Response to a n electronic controlled substance refill request - RxReferenceNumber: [id number]) hydrocodone 10 mg-acetaminophen 325 mg tablet RxNorm: 213150 TAKE ONE TO TWO TABLETS BY MOUTH FOUR TIMES A DAY . MUST LAST 30 DAYS 01/27/20142013 Inactive (Response to an electronic controlled [place] bstance refill request - RxReferenceNumber: [id number]) Celebrex 200 mg capsule RxNorm: 431768 1 Capsule(s) PO QD TAKE ONE CAPSULE BY MOUTH EVERY DAY 12/29/2013 04/27/2014 Inactive hydrocodone 10 mg-acetaminophen 325 mg tablet RxNorm: 582514 1-2 Tablet(s) PO QID as needed for severe pain 12/29/2013 01/27/2014 Inactive allopurinol 300 mg tablet RxNorm: 639207 1 Tablet(s) PO QD TAKE ONE TABLET BY MOUTH EVERY DAY 12/29/2013 05/24/2014 Inactive alprazolam 0.5 mg tablet RxNorm: 659770 TAKE ONE TABLET BY MOUTH TWICE A DAY , MUST LAST 30 DAYS 12/29/2013 01/27/2014 Inactive (Response to a n electronic controlled substance refill request - RxReferenceNumber: [id number]) Celebrex 200 mg capsule RxNorm: 401168 1 Capsule(s) PO QD TAKE ONE CAPSULE BY MOUTH EVERY DAY 12/29/2013 12/29/2013 Inactive Bystolic 10 mg tablet RxNorm: 970471 1 Tablet(s) PO QAM TAKE ONE TABLET BY MOUTH EVERY MORNING 12/29/2013 05/24/2014 Inactive Bystolic 10 mg tablet RxNorm: 800226 1 Tablet(s) PO QAM TAKE ONE TABLET BY MOUTH EVERY MORNING 12/29/2013 12/29/2013 Inactive Singulair 10 mg tablet RxNorm: 295914 1 Tablet(s) PO QD TAKE ONE TABLET BY MOUTH EVERY DAY 12/29/2013 05/25/2014 Inactive hydrocodone 10 mg-acetaminophen 325 mg tablet RxNorm: 438775 TAKE ONE TO TWO TABLETS BY MOUTH FOUR TIMES A DAY . MUST LAST 30 DAYS 12/29/20132013 Inactive (Response to an electronic controlled cornell bstance refill request - RxReferenceNumber: [id number]) Trazadone 75mg Tablet RxNorm: 1 Tablet(s) PO QHS as needed 03/23/2014 Inactive Trazadone 75mg Tablet RxNorm: 1 Tablet(s) PO QHS 12/24/20132014 Inactive Soma 350 mg tablet RxNorm: 825257 Tablet(s) PO TAKE ON E TABLET BY MOUTH THREE TIMES A DAY NEEDED FOR MUSCLE SPASMS. THIS MUST LAST 30 DAYS BETWEEN REFILLS. 12/10/2013 12/22/2013 Inactive (Appended: Cont rolled substance eRx refill - RxReferenceNumber: [id number]) diclofenac sodium 75 mg tablet,delayed release RxNorm: 44759 6 1 Tablet(s) PO BID for pain 12/10/2013 02/24/2014 Inactive allopurinol 300 mg tablet RxNorm: 610723 1 Tablet(s) PO QD 11/20/19 14 12/29/2013 Inactive alprazolam 0.5 mg tablet RxNorm: 843666 2 Tablet(s) PO BID 11/13/19 14 12/29/2013 Inactive prn clonidine 0.1 mg tablet RxNorm: 893069 1 Tablet(s) PO TID 11/12/2013 02/09/2014 Inactive replaces 0.2mg dose Klor-Con M20 mEq tablet,extended release RxNorm: 167224 2 Tablet(s) PO BID to use with lasix 11/12/2013 05/10/2014 Inactive Singulair 10 mg tablet RxNorm: 759842 1 Tablet(s) PO QD 11/12/2013 Inactive hydrocodone 10 mg-acetaminophen 325 mg tablet RxNorm: 663708 1-2 Tablet(s) PO QID as needed for severe pain 11/12/2013 12/28/2013 Inactive Bystolic 10 mg tablet RxNorm: 302570 1 Tablet(s) PO QAM 11/12/2013 Inactive Soma 350 mg tablet RxNorm: 919321 Tablet(s) PO TAKE ON E TABLET BY MOUTH THREE TIMES A DAY NEEDED FOR MUSCLE SPASMS. THIS MUST LAST 30 DAYS BETWEEN REFILLS. 10/13/2013 12/10/2013 Inactive (Appended: Cont rolled substance eRx refill - RxReferenceNumber: [id number]) hydrocodone 10 mg-acetaminophen 325 mg tablet RxNorm: 408660 1-2 Tablet(s) PO QID as needed for severe pain 10/03/2013 11/11/2013 Inactive diclofenac sodium 75 mg tablet,delayed release RxNorm: 79556 8 1 Tablet(s) PO BID for pain 09/11/2013 12/10/2013 Inactive alprazolam 0.5 mg tablet RxNorm: 392058 1 Tablet(s) PO BID May refill on 04/26/13 09/01/2013 10/30/2013 Inactive prn hydrocodone 10 mg-acetaminophen 325 mg tablet RxNorm: 302216 1-2 Tablet(s) PO QID as needed for severe pain 09/01/2013 10/02/2013 Inactive triamterene 75 mg-hydrochlorothiazide 50 mg tablet RxNorm: 3 75137 1 Tablet(s) PO QD 08/04/2013 08/31/2014 Inactive cyclobenzaprine 10 mg tablet RxNorm: 814828 1 Tablet(s) PO TID prn spasm 08/04/2013 08/13/2013 Inactive clonidine 0.1 mg tablet RxNorm: 100542 1 Tablet(s) PO TID 08/04/2013 11/11/2013 Inactive replaces 0.2mg dose cyclobenzaprine 10 mg tablet RxNorm: 363020 1 Tablet(s) PO TID prn spasm 07/23/2013 08/01/2013 Inactive hydrocodone 10 mg-acetaminophen 325 mg tablet RxNorm: 335754 2 1-2 Tablet(s) PO QID as needed for severe pain 06/09/2013 08/07/2013 Inactive Singulair 10 mg tablet RxNorm: 960638 1 Tablet(s) PO QD 05/29/2013 Inactive Klor-Con 8 mEq tablet,extended release RxNorm: 122809 1 Tablet( s) PO BID 05/29/2013 02/26/2014 Inactive allopurinol 300 mg tablet RxNorm: 524291 1 Tablet(s) PO QD 05/29/2011/19/2013 Inactive Bystolic 10 mg tablet RxNorm: 616524 1 Tablet(s) PO QAM take one daily in the morning. 05/29/2013 11/11/2013 Inactive scopolamine 1.5 mg 72 hr Transderm Patch RxNorm: 392928 Application TD Q72H for motion sickness 05/26/2013 07/22/2013 Inactive Soma 350 mg tablet RxNorm: 766177 1 Tablet(s) PO TID as needed for spasm 05/19/2013 10/13/2013 Inactive diclofenac sodium 75 mg tablet,delayed release RxNorm: 76069 8 1 Tablet(s) PO BID for pain 05/14/2013 07/22/2013 Inactive allopurinol 300 mg tablet RxNorm: 473437 1 Tablet(s) PO QD 04/25/2005/28/2013 Inactive alprazolam 0.5 mg tablet RxNorm: 968082 1 Tablet(s) PO BID May refill on 04/26/13 04/25/2013 06/23/2013 Inactive prn Celebrex 200 mg capsule RxNorm: 606107 1 Capsule(s) PO QD 04/16/2013 12/29/2013 Inactive alprazolam 0.5 mg tablet RxNorm: 418116 1 Tablet(s) PO BID May refill on 04/26/13 04/16/2013 04/24/2013 Inactive prn Soma 350 mg tablet RxNorm: 178676 1 Tablet(s) PO TID as needed for spasm 04/16/2013 No Stop Date Active Lasix 40 mg tablet RxNorm: 328345 1 Tablet(s) PO QAM s hould take potassium supplementation with this medication 04/16/2013 06/14/2013 Inactive clonidine 0.1 mg tablet RxNorm: 767757 1 Tablet(s) PO TID 04/16/2013 08/03/2013 Inactive replaces 0.2mg dose prednisone 20 mg tablet RxNorm: 127855 1 Tablet(s) PO BID 04/16/2013 04/20/2013 Inactive diclofenac sodium 75 mg tablet,delayed release RxNorm: 22599 8 1 Tablet(s) PO BID for pain 04/14/2013 05/13/2013 Inactive hydrocodone 10 mg-acetaminophen 325 mg tablet RxNorm: 989000 2 1-2 Tablet(s) PO QID as needed for severe pain 04/14/2013 No Stop Date Active Lasix 40 mg tablet RxNorm: 186682 1 Tablet(s) PO QAM s hould take potassium supplementation with this medication 03/31/2013 04/15/2013 Inactive Celebrex 200 mg capsule RxNorm: 292803 1 Capsule(s) PO QD 03/31/2013 04/15/2013 Inactive alprazolam 0.5 mg tablet RxNorm: 802597 1 Tablet(s) PO BID 03/28/20 13 04/15/2013 Inactive prn hydrocodone 10 mg-acetaminophen 325 mg tablet RxNorm: 347923 2 1-2 Tablet(s) PO QID as needed for severe pain 03/10/2013 No Stop Date Active metformin ER 500 mg 24 hr tablet,extended release RxNorm: 86 1018 1 Tablet(s) PO QD 03/06/2013 07/22/2013 Inactive clindamycin 300 mg capsule RxNorm: 421319 2 Capsule(s) PO TID 03/0503/14/2013 Inactive Zaroxolyn 2.5 mg tablet RxNorm: 683757 1 Tablet(s) PO QAM 03/05/2013 05/19/2015 Inactive amlodipine 10 mg tablet RxNorm: 268945 1 Tablet(s) PO QD 03/03/2013 0 05/25/2013 Inactive Norvasc 10 mg tablet RxNorm: 675339 1 Tablet(s) PO QD 02/28/201307/11 Inactive Celebrex 200 mg capsule RxNorm: 800250 1 Capsule(s) PO QD 02/28/2013 03/30/2013 Inactive diclofenac sodium 75 mg tablet,delayed release RxNorm: 76355 8 1 Tablet(s) PO BID for pain 02/14/2013 03/15/2013 Inactive Soma 350 mg tablet RxNorm: 570816 1 Tablet(s) PO TID as needed for spasm 02/14/2013 No Stop Date Active hydrocodone 10 mg-acetaminophen 325 mg tablet RxNorm: 194025 2 1-2 Tablet(s) PO QID as needed for severe pain 02/14/2013 No Stop Date Active Norvasc 10 mg tablet RxNorm: 565924 1 Tablet(s) PO QD 02/10/201302/09 Inactive Celebrex 200 mg capsule RxNorm: 708548 1 Capsule(s) PO QD 01/27/2013 01/26/2013 Inactive Premarin 1.25 mg tablet RxNorm: 589997 1-2 Tablet(s) PO QD 01/28/20 13 06/25/2013 Inactive alprazolam 0.5 mg tablet RxNorm: 542686 1 Tablet(s) PO BID 01/28/20 13 02/25/2013 Inactive prn amlodipine 5 mg tablet RxNorm: 995487 1 Tablet(s) PO QD 01/27/2013 Inactive Celebrex 200 mg capsule RxNorm: 937385 1 Capsule(s) PO QD 01/27/2013 02/27/2013 Inactive gabapentin 600 mg tablet RxNorm: 816431 1 Tablet(s) PO QHS 01/16/20 13 07/22/2013 Inactive Soma 350 mg tablet RxNorm: 259762 1 Tablet(s) PO TID as needed for spasm 01/15/2013 No Stop Date Active hydrocodone 10 mg-acetaminophen 325 mg tablet RxNorm: 138981 2 1-2 Tablet(s) PO QID as needed for severe pain 01/15/2013 No Stop Date Active Soma 350 mg tablet RxNorm: 100294 1 Tablet(s) PO TID as needed for spasm 01/13/2013 No Stop Date Active alprazolam 0.5 mg tablet RxNorm: 350915 1 Tablet(s) PO BID 12/31/19 13 01/26/2013 Inactive prn diclofenac sodium 75 mg tablet,delayed release RxNorm: 94859 8 1 Tablet(s) PO BID for pain 12/09/2012 01/07/2013 Inactive gabapentin 600 mg tablet RxNorm: 782105 1 Tablet(s) PO QHS 12/10/19 13 01/07/2013 Inactive hydrocodone 10 mg-acetaminophen 325 mg tablet RxNorm: 874763 2 1-2 Tablet(s) PO QID as needed for severe pain 12/02/2012 No Stop Date Active Levaquin 750 mg tablet RxNorm: 359992 1 Tablet(s) PO QD 11/21/2012 Inactive Singulair 10 mg tablet RxNorm: 935779 1 Tablet(s) PO QD 11/11/2012 Inactive clonidine 0.2 mg tablet RxNorm: 823244 1 Tablet(s) PO TID 11/11/2012 04/15/2013 Inactive alprazolam 0.5 mg tablet RxNorm: 782432 1 Tablet(s) PO BID 11/12/19 13 12/10/2012 Inactive prn Klor-Con 8 mEq tablet,extended release RxNorm: 167473 1 Tablet( s) PO BID 11/11/2012 03/04/2013 Inactive hydrocodone 10 mg-acetaminophen 325 mg tablet RxNorm: 420306 2 1-2 Tablet(s) PO QID as needed for severe pain 11/06/2012 No Stop Date Active alprazolam 0.5 mg tablet RxNorm: 146179 1 Tablet(s) PO BID 10/15/19 13 11/10/2012 Inactive prn hydrocodone-acetaminophen 10 mg-325 mg tablet RxNorm: 680047 2 1-2 Tablet(s) PO QID as needed for severe pain 10/10/2012 10/09/2012 Inactive allopurinol 300 mg tablet RxNorm: 058128 1 Tablet(s) PO QD 09/20/19 13 12/18/2012 Inactive alprazolam 0.5 mg tablet RxNorm: 998984 1 Tablet(s) PO BID 09/17/19 13 10/14/2012 Inactive prn hydrocodone-acetaminophen 10 mg-325 mg tablet RxNorm: 087415 2 1-2 Tablet(s) PO QID as needed for severe pain 08/22/2012 08/21/2012 Inactive Norvasc 10 mg tablet RxNorm: 438378 1 Tablet(s) PO QD 08/12/201201/10 Inactive Premarin 1.25 mg tablet RxNorm: 625225 1-2 Tablet(s) PO QD 07/30/20 12 12/26/2012 Inactive alprazolam 0.5 mg tablet RxNorm: 874144 1 Tablet(s) PO BID 07/29/20 12 08/27/2012 Inactive prn Klor-Con 8 mEq tablet,extended release RxNorm: 965852 1 Tablet( s) PO BID 07/29/2012 11/10/2012 Inactive hydrocodone-acetaminophen 10 mg-325 mg tablet RxNorm: 017711 2 1-2 Tablet(s) PO QID as needed for severe pain 07/29/2012 No Stop Date Active Premarin 1.25 mg tablet RxNorm: 685415 1-2 Tablet(s) PO QD 07/29/20 12 07/29/2012 Inactive clonidine 0.2 mg tablet RxNorm: 187630 1 Tablet(s) PO TID 07/29/2012 10/28/2012 Inactive ketorolac 10 mg tablet RxNorm: 290213 1 Tablet(s) PO QID prn he adache 07/18/2012 No Stop Date Active hydrocodone-acetaminophen 10 mg-325 mg tablet RxNorm: 238809 2 1-2 Tablet(s) PO QID as needed for severe pain 07/03/2012 No Stop Date Active amlodipine 5 mg tablet RxNorm: 903055 1 Tablet(s) PO QD 07/02/2012 Inactive allopurinol 300 mg tablet RxNorm: 115924 1 Tablet(s) PO QD 07/02/2009/19/2012 Inactive Celebrex 200 mg capsule RxNorm: 896486 1 Capsule(s) PO QD for j oint pain 06/26/2012 10/23/2012 Inactive diclofenac sodium 75 mg tablet,delayed release RxNorm: 84288 8 1 Tablet(s) PO BID for pain 06/19/2012 09/16/2012 Inactive hydrocodone-acetaminophen 10 mg-325 mg tablet RxNorm: 590049 2 1-2 Tablet(s) PO QID as needed for severe pain 06/10/2012 No Stop Date Active alprazolam 0.5 mg tablet RxNorm: 545217 1 Tablet(s) PO BID 06/03/20 12 07/02/2012 Inactive prn ketorolac 10 mg tablet RxNorm: 595071 1 Tablet(s) PO Q8H 05/27/2012 0 01/21/2019 Inactive as needed for headache hydrocodone-acetaminophen 10 mg-325 mg tablet RxNorm: 006072 2 1-2 Tablet(s) PO QID as needed for severe pain 05/15/2012 No Stop Date Active allopurinol 300 mg tablet RxNorm: 433629 1 Tablet(s) PO QD 05/14/20 12 06/12/2012 Inactive allopurinol 300 mg tablet RxNorm: 339313 1 Tablet(s) PO QD 05/14/20 12 05/13/2012 Inactive amlodipine 5 mg tablet RxNorm: 884542 1 Tablet(s) PO QD 05/01/2012 Inactive amlodipine 5 mg Tab RxNorm: 134308 1 Tablet(s) PO QD 05/01/201204/30 Inactive Celebrex 200 mg capsule RxNorm: 319033 1 Capsule(s) PO QD for j oint pain 05/01/2012 06/25/2012 Inactive Singulair 10 mg tablet RxNorm: 105302 1 Tablet(s) PO QD 05/01/2012 Inactive alprazolam 0.5 mg tablet RxNorm: 307937 1 Tablet(s) PO BID 05/01/2005/30/2012 Inactive prn Celebrex 200 mg Cap RxNorm: 796232 1 Capsule(s) PO QD for joint radu n 05/01/2012 04/30/2012 Inactive hydrocodone-acetaminophen 10 mg-325 mg tablet RxNorm: 260017 2 1-2 Tablet(s) PO QID as needed for severe pain 04/19/2012 No Stop Date Active Lasix 40 mg tablet RxNorm: 201456 1 Tablet(s) PO QAM s hould take potassium supplementation with this medication 04/05/2012 06/03/2012 Inactive alprazolam 0.5 mg Tab RxNorm: 257926 1 Tablet(s) PO BID 04/05/2012 Inactive prn hydrocodone-acetaminophen 10 mg-325 mg Tab RxNorm: 2497397 1-2 Tablet(s) PO QID as needed for severe pain 03/25/2012 03/24/2012 Inactive clonidine 0.2 mg Tab RxNorm: 121146 1 Tablet(s) PO TID 03/08/2012 Inactive alprazolam 0.5 mg Tab RxNorm: 195033 1 Tablet(s) PO BID 03/08/2012 Inactive prn Soma 350 mg tablet RxNorm: 703968 1 Tablet(s) PO TID for spasm 02/0903/18/2012 Inactive clonidine 0.2 mg tablet RxNorm: 442818 1 Tablet(s) PO TID 03/08/2012 07/28/2012 Inactive Celebrex 200 mg Cap RxNorm: 404054 1 Capsule(s) PO QD for joint radu n 03/01/2012 04/29/2012 Inactive amlodipine 5 mg Tab RxNorm: 256268 1 Tablet(s) PO QD 02/26/201202/24 Inactive amlodipine 5 mg Tab RxNorm: 960612 1 Tablet(s) PO QD 02/26/201204/25 Inactive Bactroban 2 % Ointment RxNorm: 571002 Application TOP QID to sores 02/23/2012 No Stop Date Active amlodipine 2.5 mg tablet RxNorm: 801234 1 Tablet(s) PO QHS 02/20/20 12 02/25/2012 Inactive doxycycline hyclate 100 mg Cap RxNorm: 4416463 1 Capsule(s) PO BID 02/20/2012 02/29/2012 Inactive hydrocodone-acetaminophen 10 mg-325 mg Tab RxNorm: 4018610 1-2 T ablet(s) PO QID 02/08/2012 No Stop Date Active alprazolam 0.5 mg Tab RxNorm: 387703 1 Tablet(s) PO BID 02/08/2012 Inactive prn Singulair 10 mg Tab RxNorm: 376593 1 Tablet(s) PO QD 02/08/201204/30 Inactive Soma 350 mg Tab RxNorm: 112540 1 Tablet(s) PO TID for spasm 012 03/07/2012 Inactive Soma 350 mg Tab RxNorm: 548656 1 Tablet(s) PO TID for spasm 012 02/05/2012 Inactive diclofenac sodium 75 mg tablet,delayed release RxNorm: 10021 8 1 Tablet(s) PO BID for pain 02/01/2012 03/18/2012 Inactive Celebrex 200 mg Cap RxNorm: 569224 1 Capsule(s) PO QD for joint radu n 01/30/2012 02/28/2012 Inactive Lasix 40 mg Tab RxNorm: 957626 1 Tablet(s) PO QAM 01/24/2012 03/18/20 12 Inactive potassium chloride ER 20 mEq tablet,extended release(part/cr yst) RxNorm: 018563 2 Tablet(s) PO BID 01/24/2012 02/22/2012 Inactive alprazolam 0.5 mg Tab RxNorm: 361146 1 Tablet(s) PO BID 01/11/2012 Inactive prn hydrocodone-acetaminophen 10 mg-325 mg Tab RxNorm: 1562822 1-2 T ablet(s) PO QID 01/11/2012 No Stop Date Active Ambien 10 mg Tab RxNorm: 319385 1 Tablet(s) PO QHS 01/11/2012 012 Inactive Klor-Con 8 mEq Tab RxNorm: 511797 1 Tablet(s) PO BID 01/11/201201/22 Inactive diclofenac sodium 75 mg Tab, Delayed Release RxNorm: 082368 1 Tablet(s) PO BID for pain 01/10/2012 01/31/2012 Inactive Ambien 10 mg Tab RxNorm: 957256 1 Tablet(s) PO QHS 12/11/2011 012 Inactive alprazolam 0.5 mg Tab RxNorm: 200144 1 Tablet(s) PO BID 12/11/2011 Inactive prn hydrocodone 10 mg-acetaminophen 325 mg tablet RxNorm: 325871 1-2 Tablet(s) PO TID 11/28/2011 No Stop Date Active as needed for pa in - Previous quantity #240, will start dosing for #180 in April [address] Ignacio. Ambien 10 mg Tab RxNorm: 023695 1 Tablet(s) PO QHS 11/09/2011 012 Inactive alprazolam 0.5 mg Tab RxNorm: 815137 1 Tablet(s) PO BID 11/09/2011 Inactive prn hydrocodone-acetaminophen 10 mg-325 mg Tab RxNorm: 8859627 1-2 T ablet(s) PO TID 11/06/2011 No Stop Date Active as needed for pain - Previous quantity #240, will start dosing for #180 in April [address] Ignacio. Singulair 10 mg Tab RxNorm: 262525 1 Tablet(s) PO QD 10/13/201110/12 Inactive Singulair 10 mg Tab RxNorm: 035853 1 Tablet(s) PO QD 10/13/201102/06 Inactive hydrocodone-acetaminophen 10 mg-325 mg Tab RxNorm: 2366798 1-2 T ablet(s) PO TID 10/10/2011 10/09/2011 Inactive as needed for pain - Previous quantity #240, will start dosing for #180 in April [address] Ignacio. hydrocodone-acetaminophen 10 mg-325 mg Tab RxNorm: 2205791 1-2 T ablet(s) PO TID 10/09/2011 No Stop Date Active as needed for pain - Previous quantity #240, will start dosing for #180 in April [address] Ignacio. Klor-Con 8 mEq Tab RxNorm: 747672 1 Tablet(s) PO BID 10/02/201101/09 Inactive triamterene 75 mg-hydrochlorothiazide 50 mg tablet RxNorm: 3 83139 1 Tablet(s) PO QD 09/14/2011 03/06/2013 Inactive Ambien 10 mg Tab RxNorm: 621541 1 Tablet(s) PO QHS 09/14/2011 012 Inactive hydrocodone-acetaminophen 10 mg-325 mg Tab RxNorm: 6639700 1-2 T ablet(s) PO TID 09/14/2011 No Stop Date Active as needed for pain - Previous quantity #240, will start dosing for #180 in April [address] Ignacio. alprazolam 0.5 mg Tab RxNorm: 020670 1 Tablet(s) PO BID 09/14/2011 Inactive prn Zithromax 500 mg Tab RxNorm: 365180 1 Tablet(s) PO QD 09/13/201109/10 Inactive prednisone 20 mg Tab RxNorm: 114171 1 Tablet(s) PO BID 08/31/2011 Inactive Ambien 10 mg Tab RxNorm: 202631 1 Tablet(s) PO QHS 08/17/2011 011 Inactive hydrocodone-acetaminophen 10 mg-325 mg Tab RxNorm: 9036770 1-2 T ablet(s) PO TID 08/17/2011 No Stop Date Active as needed for pain - Previous quantity #240, will start dosing for #180 in April [address] Ignacio. clonidine 0.2 mg Tab RxNorm: 383271 1 Tablet(s) PO TID 08/17/201112/2011 Inactive Ambien 10 mg Tab RxNorm: 713884 1 Tablet(s) PO QHS 08/17/2011 019 Inactive alprazolam 0.5 mg Tab RxNorm: 220412 1 Tablet(s) PO BID 08/17/2011 Inactive prn hydrocodone-acetaminophen 10 mg-325 mg Tab RxNorm: 4495934 1-2 T ablet(s) PO TID 08/17/2011 08/16/2011 Inactive as needed for pain - Previous quantity #240, will start dosing for #180 in April [address] Ignacio. Singulair 10 mg Tab RxNorm: 885598 1 Tablet(s) PO QD 08/17/201108/16 Inactive Klor-Con 8 mEq Tab RxNorm: 783783 1 Tablet(s) PO QD 08/17/20112011 Inactive alprazolam 0.5 mg Tab RxNorm: 180385 1 Tablet(s) PO BID 07/20/2011 Inactive prn Ambien 10 mg Tab RxNorm: 625203 1 Tablet(s) PO QHS 07/20/2011 012 Inactive Singulair 10 mg Tab RxNorm: 066446 1 Tablet(s) PO QD 07/20/201107/19 Inactive Premarin 1.25 mg tablet RxNorm: 125783 2 Tablet(s) PO QD 07/20/2011 0 01/21/2019 Inactive Premarin 1.25 mg tablet RxNorm: 258368 1-2 Tablet(s) PO QD 07/20/20 11 12/16/2011 Inactive Premarin 1.25 mg Tab RxNorm: 405101 1-2 Tablet(s) PO QD 07/06/2011 Inactive alprazolam 0.5 mg Tab RxNorm: 987942 1 Tablet(s) PO BID 06/22/2011 Inactive prn alprazolam 0.5 mg Tab RxNorm: 982674 1 Tablet(s) PO BID 06/22/2011 Inactive prn Premarin 1.25 mg Tab RxNorm: 152013 1 Tablet(s) PO QD m ay do 90 day fill if desired 06/22/2011 07/05/2011 Inactive hydrocodone-acetaminophen 10 mg-325 mg Tab RxNorm: 9613232 1-2 T ablet(s) PO TID 06/22/2011 No Stop Date Active as needed for pain - Previous quantity #240, will start dosing for #180 in April [address] Ignacio. clonidine 0.2 mg Tab RxNorm: 758071 1 Tablet(s) PO TID 05/25/201103/2011 Inactive triamterene-hydrochlorothiazide 75 mg-50 mg Tab RxNorm: 3108 18 1 Tablet(s) PO QD 05/25/2011 09/13/2011 Inactive alprazolam 0.5 mg Tab RxNorm: 780643 1 Tablet(s) PO BID 05/25/2011 Inactive prn hydrocodone-acetaminophen 10 mg-325 mg Tab RxNorm: 1829947 1-2 T ablet(s) PO TID 05/25/2011 No Stop Date Active as needed for pain - Previous quantity #240, will start dosing for #180 in April [address] Ignacio. Robaxin-750 750 mg Tab RxNorm: 514121 2 Tablet(s) PO QHS 05/22/2011 1 Inactive prn spasm hydrocodone-acetaminophen 10 mg-325 mg Tab RxNorm: 3830168 1-2 T ablet(s) PO TID 04/26/2011 No Stop Date Active as needed for pain - Previous quantity #240, will start dosing for #180 in April [address] Ignacio. alprazolam 0.5 mg Tab RxNorm: 458670 1 Tablet(s) PO BID 04/25/2011 Inactive prn Klor-Con 8 mEq Tab RxNorm: 115558 1 Tablet(s) PO QD 03/30/20112010 Inactive Klor-Con 8 mEq Tab RxNorm: 247222 1 Tablet(s) PO QD 03/29/20112010 Inactive hydrocodone-acetaminophen 10 mg-325 mg Tab RxNorm: 5081794 1-2 T ablet(s) PO TID 03/20/2011 04/25/2011 Inactive as needed for pain - Previous quantity #240, will start dosing for #180 in April [address] Ignacio. alprazolam 0.5 mg Tab RxNorm: 452155 1 Tablet(s) PO BID prn 011 03/30/2011 Inactive Ambien 10 mg Tab RxNorm: 808987 1 Tablet(s) PO QHS 03/01/2011 011 Inactive cyclobenzaprine 10 mg Tab RxNorm: 907159 1 Tablet(s) PO TID 011 03/18/2012 Inactive cyclobenzaprine 10 mg Tab RxNorm: 230164 1 Tablet(s) PO TID 011 01/08/2011 Inactive cyclobenzaprine 10 mg Tab RxNorm: 024643 1 Tablet(s) PO TID 011 12/20/2010 Inactive terbinafine 250 mg Tab RxNorm: 162550 1 Tablet(s) PO QD 12/12/2010 Inactive triamterene-hydrochlorothiazide 75 mg-50 mg Tab RxNorm: 3108 18 1 Tablet(s) PO QD 12/07/2010 01/12/2020 Inactive Klor-Con 8 8 mEq Tab RxNorm: 451698 1 Tablet(s) PO QD 12/07/201001/08 Inactive Premarin 1.25 mg Tab RxNorm: 381033 2 Tablet(s) PO QD 12/07/201001/08 Inactive clonidine 0.2 mg Tab RxNorm: 542470 1 Tablet(s) PO TID 12/07/2010 Inactive hydrocodone-acetaminophen 7.5 mg-650 mg Tab RxNorm: 092450 1 Ta blet(s) PO Q4H 12/05/2010 01/21/2019 Inactive hydrocodone-acetaminophen 7.5 mg-650 mg Tab RxNorm: 378232 1 Ta blet(s) PO Q4H 10/26/2010 11/14/2010 Inactive hydrocodone-acetaminophen 7.5 mg-650 mg Tab RxNorm: 754202 1 Ta blet(s) PO Q4H 10/13/2010 10/25/2010 Inactive hydrocodone-acetaminophen 7.5 mg-650 mg Tab RxNorm: 612172 1 Ta blet(s) PO Q4H 09/15/2010 09/12/2010 Inactive alprazolam 0.5 mg Tab RxNorm: 326332 1 Tablet(s) PO BID prn 011 09/12/2010 Inactive terbinafine 250 mg Tab RxNorm: 157252 1 Tablet(s) PO QD 09/05/2010 Inactive hydrocodone-acetaminophen 7.5 mg-650 mg Tab RxNorm: 808835 1 Ta blet(s) PO Q4H 08/29/2010 09/17/2010 Inactive alprazolam 0.5 mg Tab RxNorm: 038952 1 Tablet(s) PO BID prn 010 09/27/2010 Inactive alprazolam 0.5 mg Tab RxNorm: 740412 1 Tablet(s) PO BID prn 010 09/06/2010 Inactive Klor-Con 8 mEq Tab RxNorm: 661466 1 Tablet(s) PO QD 08/08/20102010 Inactive hydrocodone-acetaminophen 7.5 mg-650 mg Tab RxNorm: 310385 1 Ta blet(s) PO Q4H 08/08/2010 08/27/2010 Inactive Ambien 10 mg Tab RxNorm: 801232 1 Tablet(s) PO QHS 08/08/2010 Inactive clonidine 0.2 mg Tab RxNorm: 896273 1 Tablet(s) PO TID 08/08/2010 Inactive Premarin 1.25 mg Tab RxNorm: 229909 2 Tablet(s) PO QD 08/08/201009/12 Inactive Ambien 10 mg Tab RxNorm: 694006 1 Tablet(s) PO QHS 07/18/2010 Inactive alprazolam 0.5 mg Tab RxNorm: 596766 1 Tablet(s) PO BID prn 010 08/07/2010 Inactive hydrocodone-acetaminophen 7.5 mg-650 mg Tab RxNorm: 837054 1 Ta blet(s) PO Q4H 07/12/2010 07/31/2010 Inactive clonidine 0.2 mg Tab RxNorm: 598143 1 Tablet(s) PO TID 06/20/2010 Inactive terbinafine 250 mg Tab RxNorm: 116102 1 Tablet(s) PO QD 05/24/2010 Inactive Clonidine 0.2 mg Tab RxNorm: 795752 1 Tablet(s) PO TID 05/24/201006/2010 Inactive Ambien 10 mg Tab RxNorm: 755461 1 Tablet(s) PO QHS 05/24/2010 010 Inactive alprazolam 0.5 mg Tab RxNorm: 130244 1 Tablet(s) PO BID 05/24/2010 Inactive Klor-Con 8 mEq Tab RxNorm: 884922 1 Tablet(s) PO QD 05/24/20102009 Inactive alprazolam 0.5 mg Tab RxNorm: 804787 2 Tablet(s) PO QD prn 05/24/20 10 07/17/2010 Inactive triamterene-hydrochlorothiazide 75 mg-50 mg Tab RxNorm: 3108 18 1 Tablet(s) PO QD 05/24/2010 11/19/2010 Inactive Ambien 10 mg Tab RxNorm: 810644 1 Tablet(s) PO QHS 05/23/2010 010 Inactive Alprazolam 0.5 mg Tab RxNorm: 152330 2 Tablet(s) PO QD prn 05/23/2005/23/2010 Inactive Premarin 1.25 mg Tab RxNorm: 010345 2 Tablet(s) PO QD 05/19/201007/12 Inactive Hydrocodone-Acetaminophen 7.5 mg-650 mg Tab RxNorm: 951348 1 Ta blet(s) PO Q4H 05/19/2010 03/20/2011 Inactive Prednisone 20 mg Tab RxNorm: 839828 1 Tablet(s) PO BID 05/17/2010 Inactive Prednisone 20 mg Tab RxNorm: 919298 1 Tablet(s) PO BID 05/06/201001/2010 Inactive Premarin 1.25 mg Tab RxNorm: 358180 Tablet(s) PO 2 M-W-F, and 1 Ya-Qc-Gpt-Sun 05/05/2010 08/02/2010 Inactive Premarin 1.25 mg Tab RxNorm: 754317 Tablet(s) PO 2 M-W-F, and 1 We-Rw-Piq-Sun 05/04/2010 05/04/2010 Inactive Premarin 1.25 mg Tab RxNorm: 259535 Tablet(s) PO 2 M-W-F, and 1 Bz-Vb-Itb-Sun 05/04/2010 05/03/2010 Inactive Prednisone 20 mg Tab RxNorm: 156910 1 Tablet(s) PO BID 04/27/2010 Inactive Alprazolam 0.5 mg Tab RxNorm: 996660 2 Tablet(s) PO QD prn 04/26/20 10 05/22/2010 Inactive Clindamycin 300 mg Cap RxNorm: 449311 2 Capsule(s) PO TID 04/05/2010 04/18/2010 Inactive Terbinafine 250 mg Tab RxNorm: 391582 1 Tablet(s) PO QD 04/04/2010 Inactive Hydrocodone-Acetaminophen 7.5 mg-650 mg Tab RxNorm: 673351 1 Ta blet(s) PO Q4H 03/30/2010 04/18/2010 Inactive Avelox 400 mg Tab RxNorm: 346188 1 Tablet(s) PO QD 03/09/2010 010 Inactive Hydrocodone-Acetaminophen 7.5 mg-650 mg Tab RxNorm: 622449 1 Ta blet(s) PO Q4H 03/08/2010 03/27/2010 Inactive Alprazolam 0.5 mg Tab RxNorm: 520083 2 Tablet(s) PO QD prn 03/08/20 10 04/25/2010 Inactive Klor-Con 8 mEq Tab RxNorm: 001793 1 Tablet(s) PO QD when takes lasi x 03/07/2010 09/29/2019 Inactive Premarin 1.25 mg Tab RxNorm: 822975 1 Tablet(s) PO QD 03/03/201003/11 Inactive Alprazolam 0.5 mg Tab RxNorm: 456147 1 Tablet(s) PO BID PRN 010 No Stop Date Active triamterene-hydrochlorothiazide 75 mg-50 mg Tab RxNorm: 3108 18 1 Tablet(s) PO QD 02/09/2010 02/03/2011 Inactive Hydrocodone-Acetaminophen 10 mg-750 mg Tab RxNorm: 934551 1 Tablet(s) PO Q4H PRN 02/09/2010 03/20/2011 Inactive Clonidine 0.2 mg Tab RxNorm: 185242 1 Tablet(s) PO TID 01/13/201009/2009 Inactive Alprazolam 0.5 mg Tab RxNorm: 392739 1 Tablet(s) PO BID PRN 010 01/12/2010 Inactive Hydrocodone-Acetaminophen 10 mg-750 mg Tab RxNorm: 709739 1 Tablet(s) PO Q4H PRN 01/13/2010 01/12/2010 Inactive ANGELIQ 1 mg-0.5 mg Tab RxNorm: 5044837 1 Tablet(s) PO QD 12/27/2009 01/23/2010 Inactive Lasix 40 mg Tab RxNorm: 994187 1 Tablet(s) PO QAM 12/14/2009 06/11/20 10 Inactive Vitamin B12 1000mcg Tablet RxNorm: 1 Tablet(s) PO QD No Start Date Active cyclobenzaprine 10 mg tablet RxNorm: 860103 1 Tablet(s) PO TID as needed DO NOT USE WITH BACLOFEN No Start Date Active Vitamin D 5,000 unit Tab RxNorm: 1 Tablet(s) PO QD No Start Date Active vitamin E (dl, acetate) 400 unit Cap RxNorm: 238788 1 Capsule(s ) PO QD No Start Date Active Benadryl 25 mg Cap RxNorm: 6975065 Capsule(s) PO PRN No Start Date Inactive amitriptyline 100 mg tablet RxNorm: 533430 1 Tablet(s) PO QHS No St art Date 11/27/2016 Inactive Zithromax Z-Dustin 250 mg tablet RxNorm: 486923 Tablet(s) PO as di rected No Start Date 07/22/2013 Inactive Klor-Con 8 mEq tablet,extended release RxNorm: 757915 1 Tablet( s) PO BID No Start Date 07/28/2012 Inactive scopolamine 1.5 mg 72 hr Transderm Patch RxNorm: 347600 Application TD Q72H for motion sickness No Start Date 05/25/2013 Inactive Klonopin 1 mg tablet RxNorm: 026331 1-2 Tablet(s) PO QHS as nee ded for sleep No Start Date 06/20/2015 Inactive Klor-Con M20 mEq tablet,extended release RxNorm: 264812 2 Tablet(s) PO BID to use with lasix No Start Date 11/11/2013 Inactive Bystolic 5 mg tablet RxNorm: 283406 1 Tablet(s) PO QD No Start Date 1 Inactive Bystolic 10 mg tablet RxNorm: 892338 1 Tablet(s) PO BID No Start Da te 07/06/2015 Inactive Premarin 1.25 mg Tab RxNorm: 691872 Tablet(s) PO 2 -W-, and 1 Gl-Nm-Dkq-Sun No Start Date 05/03/2010 Inactive baclofen 20 mg tablet RxNorm: 885260 1 Tablet(s) PO TID as needed for muscle spasm No Start Date 07/22/2015 Inactive hydrocodone-acetaminophen 7.5 mg-650 mg Tab RxNorm: 410805 1 Tablet(s) PO Q4H as needed for pain No Start Date 03/20/2011 Inactive albuterol sulfate 1.25 mg/3 mL Neb Solution RxNorm: 969936 1 Unit Dose INH Q4H 2boxes No Start Date 09/06/2015 Inactive Butrans 20 mcg/hour Transderm Patch RxNorm: 707218 1 TD WEEKLY apply to skin weekly after removing previous. No Start Date 07/22/2013 Inactive Medrol (Dustin) 4 mg tablets in a dose pack RxNorm: 411168 Tablet(s) PO As Directed No Start Date 07/30/2016 Inactive hydrocodone-acetaminophen 10 mg-325 mg Tab RxNorm: 8604877 1-2 Tablet(s) PO TID as needed for pain No Start Date 03/19/2011 Inactive Klonopin 1 mg tablet RxNorm: 793367 1 Tablet(s) PO QHS No Start Date 02/28/2016 Inactive honey topical RxNorm: topical No Start Date 06/16/2018 Inactive Clonidine 0.2 mg Tab RxNorm: 415974 1 Tablet(s) PO TID No Start Date 01/12/2010 Inactive ketorolac 10 mg tablet RxNorm: 797493 1 Tablet(s) PO Q8H No Start D ate 03/18/2012 Inactive as needed for headache Singulair 10 mg Tab RxNorm: 097522 1 Tablet(s) PO QD No Start Date Inactive Premarin 1.25 mg Tab RxNorm: 396687 1 Tablet(s) PO QD No Start Date 1 Inactive Flonase 50 mcg/Actuation Nasal Cogswell RxNorm: 2362891 1 Cogswell CECELIA AL BID No Start Date 03/18/2012 Inactive Terbinafine 250 mg Tab RxNorm: 640523 1 Tablet(s) PO QD No Start Da te 04/03/2010 Inactive Fexofenadine 180 mg Tab RxNorm: 5623727 1 Tablet(s) PO QD No Start Date 09/06/2015 Inactive baclofen 20 mg tablet RxNorm: 613132 1 Tablet(s) PO TID as needed N o Start Date 05/25/2014 Inactive Diovan 160 mg Tab RxNorm: 423700 1 Tablet(s) PO QD No Start Date 09/12 Inactive mupirocin 2 % topical ointment RxNorm: 574937 1 Application TOP QID No Start Date 04/25/2016 Inactive ZOFRAN ODT 4 mg Tab, Rapid Dissolve RxNorm: 784547 1 Tablet(s) PO Q4H No Start Date 03/18/2012 Inactive as needed for nausea and vomiting Alprazolam 0.5 mg Tab RxNorm: 497117 1 Tablet(s) PO BID PRN No Star t Date 01/12/2010 Inactive cyclobenzaprine 10 mg tablet RxNorm: 436572 1 Tablet(s) PO TID as needed for muscle spasm No Start Date 10/08/2017 Inactive Albuterol 0.083% Aerosol Solution RxNorm: 1 Appl ication INH Q4H Use one ampule every 4 hrs with nebulizer as needed for shortness of breath. No Start Date 10/09/2010 Inactive lorazepam 1 mg tablet RxNorm: 911809 1 1/2 Tablet(s) PO QHS No Star t Date 02/02/2016 Inactive Melatonin 3 mg Tab RxNorm: 780184 Tablet(s) PO PRN No Start Date 07/11 Inactive Medrol (Dustin) 4 mg Tabs in a Dose Pack RxNorm: 617386 Tablet(s) PO N o Start Date 11/28/2010 Inactive lorazepam 1 mg tablet RxNorm: 548986 1 Tablet(s) PO QHS as need ed for sleep No Start Date 01/30/2016 Inactive hydrocodone-acetaminophen 10 mg-325 mg Tab RxNorm: 3159864 1-2 Tablet(s) PO QID as needed for severe pain No Start Date 03/24/2012 Inactive celecoxib 200 mg capsule RxNorm: 929248 1 Capsule(s) PO BID No Star t Date 06/26/2019 Inactive amlodipine 5 mg-benazepril 20 mg capsule RxNorm: 243538 1 Capsu le(s) PO QD No Start Date 04/10/2017 Inactive Bystolic 20 mg tablet RxNorm: 202477 1/2 Tablet(s) PO QAM No Start Date 01/23/2016 Inactive Bystolic 20 mg tablet RxNorm: 303733 1 Tablet(s) PO QAM No Start Da te 04/25/2016 Inactive Ambien 10 mg Tab RxNorm: 921439 1 Tablet(s) PO QHS No Start Date 05/11 Inactive Klor-Con 8 mEq Tab RxNorm: 195865 1 Tablet(s) PO QD when takes lasix No Start Date 03/06/2010 Inactive aspirin 81 mg tablet RxNorm: 741323 1 Tablet(s) PO QD No Start Date 0 01/29/2018 Inactive hydrocodone-acetaminophen 10 mg-325 mg Tab RxNorm: 1836817 1-2 T ablet(s) PO QID No Start Date 01/10/2012 Inactive Bystolic 10 mg tablet RxNorm: 599399 1 Tablet(s) PO QAM take one daily in the morning. No Start Date 05/28/2013 Inactive nystatin 100,000 unit/mL Oral Susp RxNorm: 897709 5 Milliliter( s) PO QID No Start Date 03/18/2012 Inactive swish and spit scopolamine 1.5 mg 72 hr Transderm Patch RxNorm: 154518 1 Unit Dose TD Q72H for motion sickness No Start Date 12/23/2013 Inactive Hydrocodone-Acetaminophen 10 mg-750 mg Tab RxNorm: 395480 1 Tablet(s) PO Q4H PRN No Start Date 01/12/2010 Inactive Soma 350 mg tablet RxNorm: 148166 1 Tablet(s) PO TID as needed for spasm No Start Date 01/12/2013 Inactive baclofen 10 mg tablet RxNorm: 507820 1 Tablet(s) PO TID as needed for muscle spasm No Start Date 09/18/2019 Inactive Soma 350 mg Tab RxNorm: 995545 1 Tablet(s) PO TID for spasm No Star t Date 01/31/2012 Inactive Co Q-10 400 mg capsule RxNorm: 810113 1 Capsule(s) PO QD No Start D ate 01/21/2019 Inactive nystatin 100,000 unit/gram topical cream RxNorm: 112314 Applica tion TOP BID No Start Date 03/22/2015 Inactive Exforge 5 mg-160 mg Tab RxNorm: 719364 1 Tablet(s) PO QD No Start D ate 10/09/2010 Inactive Hydrocodone-Acetaminophen 7.5 mg-650 mg Tab RxNorm: 826452 1 Ta blet(s) PO Q4H No Start Date 03/07/2010 Inactive Robaxin-750 750 mg Tab RxNorm: 844772 1-2 Tablet(s) PO TID prn spasm No Start Date 05/21/2011 Inactive amlodipine 5 mg tablet RxNorm: 537543 1 Tablet(s) PO QHS No Start D ate 09/29/2015 Inactive oxycodone-acetaminophen 10 mg-325 mg tablet RxNorm: 5517307 1-2 Tablet(s) PO Q6H No Start Date 06/16/2018 Inactive Triamterene-Hydrochlorothiazide 75 mg-50 mg Tab RxNorm: 3108 18 1 Tablet(s) PO QD No Start Date 02/08/2010 Inactive Alprazolam 0.5 mg Tab RxNorm: 227884 2 Tablet(s) PO QD prn No Start Date 03/07/2010 Inactive Bystolic 20 mg tablet RxNorm: 401969 1 Tablet(s) PO QAM No Start Da te 08/17/2015 Inactive ketorolac 10 mg tablet RxNorm: 296939 1 Tablet(s) PO QID prn he adache No Start Date 07/17/2012 Inactive acyclovir 800 mg Tab RxNorm: 605493 1 Tablet(s) PO BID No Start Date 03/18/2012 Inactive duloxetine 60 mg capsule,delayed release RxNorm: 291404 1 Capsu le(s) PO QD No Start Date 09/29/2015 Inactive Norvasc 5 mg tablet RxNorm: 771483 1 Tablet(s) PO QHS No Start Date 1 10/18/2014 Inactive promethazine 25 mg tablet RxNorm: 203968 1 Tablet(s) PO Q8H use sparingly No Start Date 07/22/2013 Inactive alprazolam 0.5 mg tablet RxNorm: 213652 3 Tablet(s) PO QHS No Start Date 06/06/2015 Inactive Lunesta 3 mg tablet RxNorm: 567922 1 Tablet(s) PO QHS No Start Date 0 09/20/2017 Inactive hydrocodone-acetaminophen 10 mg-325 mg Tab RxNorm: 5826069 1-2 Tablet(s) PO TID as needed for pain No Start Date 12/10/2011 Inactive Coricidin HBP Cough & Cold 4 mg-30 mg Tab RxNorm: 0717879 Tablet (s) PO PRN No Start Date 10/09/2010 Inactive Bactroban 2 % Ointment RxNorm: 676013 Application TOP QID to so res No Start Date 02/22/2012 Inactive Flonase 50 mcg/actuation Nasal Cogswell RxNorm: 047709 2 Cogswell CECELIA AL QHS No Start Date 03/03/2014 Inactive Medication Administered No Medication Administered data Immunizations Vaccine Codes Date Status Tetanus, Diptheria, Pertussis CVX: 115 02/27/2014 Results Observation Observation Code Item Item Code Result Date S ervice Location MEAN GLUC 7752675 Calc Mean Gluc 209 mg/dL 02/12/2020 Unkn own GLYCOSYLATED HEMOGLOBIN TEST 72226 Hgb A1c 26406-2 8.9 % 0 02/12/2020 Unknown GFR CALC 9292911 GFR Afr Amr >60 mL/min 02/12/2020 Unknow n GFR CALC 2721189 GFR Non Afr Amr >60 mL/min 02/12/2020 Un known COMPREHENSIVE METABOLIC 65008 AST 27 U/L 2019 Unknown COMPREHENSIVE METABOLIC 55925 ALT 16 U/L 2019 Unknown COMPREHENSIVE METABOLIC 02907 BUN 22 mg/dL 2019 Unknown COMPREHENSIVE METABOLIC 78373 ALBUMIN 3.9 g/dL 2019 Unknown COMPREHENSIVE METABOLIC 09150 CHLORIDE 98 mmol/L 2019 Unknown COMPREHENSIVE METABOLIC 09093 Bili Total 0.5 mg/dL 02/11 Unknown COMPREHENSIVE METABOLIC 36680 ALK PHOS 72 U/L 2019 Unknown COMPREHENSIVE METABOLIC 73198 SODIUM 137 mmol/L 02/11 Unknown COMPREHENSIVE METABOLIC 41227 CREATININE 0.96 mg/dL 12/2019 Unknown COMPREHENSIVE METABOLIC 31250 CALCIUM 9.1 mg/dL 2019 Unknown COMPREHENSIVE METABOLIC 99887 POTASSIUM 4.6 mmol/L 02/11 Unknown COMPREHENSIVE METABOLIC 47493 Total Protein 6.5 g/dL Unknown COMPREHENSIVE METABOLIC 54145 Glucose 129 mg/dL 2019 Unknown COMPREHENSIVE METABOLIC 81062 Bicarbonate 31 mmol/L 12/2019 Unknown COMPREHENSIVE METABOLIC 08901 AGAP 8 mmol/L 2019 Unknown COMPREHENSIVE METABOLIC 82292 AST 15 U/L 2019 Unknown COMPREHENSIVE METABOLIC 70609 ALT 13 U/L 2019 Unknown COMPREHENSIVE METABOLIC 02248 BUN 12 mg/dL 2019 Unknown COMPREHENSIVE METABOLIC 00001 ALBUMIN 3.9 g/dL 2019 Unknown COMPREHENSIVE METABOLIC 35601 CHLORIDE 97 mmol/L 2019 Unknown COMPREHENSIVE METABOLIC 45331 Bili Total 0.4 mg/dL 09/29 Unknown COMPREHENSIVE METABOLIC 67763 ALK PHOS 130 U/L 2019 Unknown COMPREHENSIVE METABOLIC 42117 SODIUM 136 mmol/L 09/29 Unknown COMPREHENSIVE METABOLIC 43468 CREATININE 0.92 mg/dL 09/11 Unknown COMPREHENSIVE METABOLIC 45942 CALCIUM 9.1 mg/dL 2019 Unknown COMPREHENSIVE METABOLIC 61397 POTASSIUM 4.4 mmol/L 09/29 Unknown COMPREHENSIVE METABOLIC 12020 Total Protein 6.2 g/dL Unknown COMPREHENSIVE METABOLIC 58062 Glucose 391 mg/dL 2019 Unknown COMPREHENSIVE METABOLIC 37619 Bicarbonate 30 mmol/L 09/11 Unknown COMPREHENSIVE METABOLIC 01804 AGAP 9 mmol/L 2019 Unknown MEAN GLUC 5470457 Calc Mean Gluc 332 mg/dL 09/29/2019 Unkn own COMPLETE BLOOD COUNT [id number] WBC 7.0 10e9/L 09/29/19 Unknown COMPLETE BLOOD COUNT [id number] RBC 4.69 10e12/L 2019 Unknown COMPLETE BLOOD COUNT 2422038 HEMOGLOBIN 14.6 g/dL 09/29/19 Unknown COMPLETE BLOOD COUNT [id number] HEMATOCRIT 45.2 % 09/29/19 Unknown COMPLETE BLOOD COUNT 1087590 MCV 96.4 fL 0 Unknown COMPLETE BLOOD COUNT [id number] MCH 31.1 pg 0 Unknown COMPLETE BLOOD COUNT [id number] MCHC 32.3 g/dL 0 Unknown COMPLETE BLOOD COUNT [id number] PLATELET COUNT 209 10e9/L Unknown COMPLETE BLOOD COUNT [id number] Mean Plt Volume 9.8 fL Unknown COMPLETE BLOOD COUNT [id number] Neut Auto 48.1 % 0 Unknown COMPLETE BLOOD COUNT [id number] Lymph Auto 36.5 % 09/29/19 Unknown COMPLETE BLOOD COUNT 9164381 [place] Auto 8.6 % 0 Unknown COMPLETE BLOOD COUNT 5987116 RDW 13.4 % 0 Unknown COMPLETE BLOOD COUNT 1859795 Eos Auto 6.5 % 0 Unknown COMPLETE BLOOD COUNT 5666362 Baso Auto 0.3 % 0 Unknown COMPLETE BLOOD COUNT [id number] Neutrophil Abs 3.37 10e9/L Unknown COMPLETE BLOOD COUNT [id number] Lymphocyte Abs 2.56 10e9/L Unknown COMPLETE BLOOD COUNT [id number] Monocyte Abs 0.60 10e9/L 09/11 Unknown COMPLETE BLOOD COUNT [id number] Eosinophil Abs 0.46 10e9/L Unknown COMPLETE BLOOD COUNT [id number] RDW-SD 45.9 fL 0 Unknown COMPLETE BLOOD COUNT [id number] Basophil Abs 0.02 10e9/L 09/11 Unknown LIPID GROUP 68652 Cholesterol 248 mg/dL 09/29/2019 Unkno wn LIPID GROUP 29488 Triglyceride 898 mg/dL 09/29/2019 Unkn own LIPID GROUP 98528 HDL CHOLESTEROL 41 mg/dL 09/29/2019 U nknown LIPID GROUP 41195 Chol/HDL Ratio 6.05 ratio 09/29/2019 U nknown LIPID GROUP 95953 NON-HDL Chol 207 mg/dL 09/29/2019 Unkn own LIPID GROUP 18670 LDL Cholesterol N/A Trig >400 020 Unknown GLYCOSYLATED HEMOGLOBIN TEST 55638 Hgb A1c 04067-0 13.2 % 0 09/29/2019 Unknown FREE T4 67689 T4 Free 0.75 ng/dL 09/29/2019 Unknown GFR CALC 3811929 GFR Non Afr Amr >60 mL/min 09/29/2019 Un known GFR CALC 5630435 GFR Afr Amr >60 mL/min 09/29/2019 Unknow n THYROID STIMULATING HORMONE 01770 TSH 4.245 uIU/mL 09/29/2019 Unknown COMPLETE BLOOD COUNT [id number] WBC 10.7 10e9/L 018 Unknown COMPLETE BLOOD COUNT 1019744 RBC 4.59 10e12/L 2017 Unknown COMPLETE BLOOD COUNT [id number] HEMOGLOBIN 14.8 g/dL 12/11/19 18 Unknown COMPLETE BLOOD COUNT 0290070 HEMATOCRIT 44.9 % 12/11/19 18 Unknown COMPLETE BLOOD COUNT [id number] MCV 97.8 fL 8 Unknown COMPLETE BLOOD COUNT [id number] MCH 32.2 pg 8 Unknown COMPLETE BLOOD COUNT 1401607 MCHC 33.0 g/dL 8 Unknown COMPLETE BLOOD COUNT 6906063 PLATELET COUNT 261 10e9/L 10/2017 Unknown COMPLETE BLOOD COUNT 3880956 Mean Plt Volume 9.5 fL 10/2017 Unknown COMPLETE BLOOD COUNT 9657570 Neut Auto 59.9 % 8 Unknown COMPLETE BLOOD COUNT 9582743 Lymph Auto 27.4 % 12/11/19 18 Unknown COMPLETE BLOOD COUNT 1954292 [place] Auto 8.2 % 8 Unknown COMPLETE BLOOD COUNT 2446884 RDW 13.3 % 8 Unknown COMPLETE BLOOD COUNT 6394073 Eos Auto 4.1 % 8 Unknown COMPLETE BLOOD COUNT 9128258 Baso Auto 0.4 % 8 Unknown COMPLETE BLOOD COUNT 3034352 Neutrophil Abs 6.41 10e9/L Unknown COMPLETE BLOOD COUNT [id number] Lymphocyte Abs 2.93 10e9/L Unknown COMPLETE BLOOD COUNT [id number] Monocyte Abs 0.88 10e9/L 10/2017 Unknown COMPLETE BLOOD COUNT [id number] Eosinophil Abs 0.44 10e9/L Unknown COMPLETE BLOOD COUNT [id number] Basophil Abs 0.04 10e9/L 10/2017 Unknown COMPLETE BLOOD COUNT 8207142 RDW-SD 46.2 fL 8 Unknown THYROID STIMULATING HORMONE 21888 TSH 4.015 uIU/mL 12/10/2017 Unknown COMPREHENSIVE METABOLIC 91999 AST 25 U/L 2017 Unknown COMPREHENSIVE METABOLIC 67416 ALT 17 U/L 2017 Unknown COMPREHENSIVE METABOLIC 25519 BUN 19 mg/dL 2017 Unknown COMPREHENSIVE METABOLIC 25236 ALBUMIN 4.0 g/dL 2017 Unknown COMPREHENSIVE METABOLIC 90026 CHLORIDE 91 mmol/L 2017 Unknown COMPREHENSIVE METABOLIC 86878 Bili Total 0.5 mg/dL 12/10 Unknown COMPREHENSIVE METABOLIC 06425 ALK PHOS 75 U/L 2017 Unknown COMPREHENSIVE METABOLIC 75910 SODIUM 136 mmol/L 12/10 Unknown COMPREHENSIVE METABOLIC 14164 CREATININE 1.05 mg/dL 10/2017 Unknown COMPREHENSIVE METABOLIC 50929 CALCIUM 8.9 mg/dL 2017 Unknown COMPREHENSIVE METABOLIC 09474 POTASSIUM 3.4 mmol/L 12/10 Unknown COMPREHENSIVE METABOLIC 01998 Total Protein 6.5 g/dL Unknown COMPREHENSIVE METABOLIC 28749 Glucose 138 mg/dL 2017 Unknown COMPREHENSIVE METABOLIC 82643 Bicarbonate 35 mmol/L 10/2017 Unknown COMPREHENSIVE METABOLIC 52478 AGAP 10 mmol/L 2017 Unknown ME[facility] GLUC 3603281 Calc Mean Gluc 171 mg/dL 12/10/2017 Unkn own LIPID GROUP 89515 Cholesterol 204 mg/dL 12/10/2017 Unkno wn LIPID GROUP 99809 Triglyceride 411 mg/dL 12/10/2017 Unkn own LIPID GROUP 16154 HDL CHOLESTEROL 50 mg/dL 12/10/2017 U nknown LIPID GROUP 67931 Chol/HDL Ratio 4.08 ratio 12/10/2017 U nknown LIPID GROUP 38131 NON-HDL Chol 154 mg/dL 12/10/2017 Unkn own LIPID GROUP 48118 LDL Cholesterol N/A Trig >400 018 Unknown GLYCOSYLATED HEMOGLOBIN TEST 19988 Hgb A1c 68896-7 7.6 % 0 12/10/2017 Unknown FREE T4 45144 T4 Free 1.40 ng/dL 12/10/2017 Unknown GFR CALC 6031605 GFR Non Afr Amr 55 mL/min 12/10/2017 Unk nown GFR CALC 9876331 GFR Afr Amr >60 mL/min 12/10/2017 Unknow n GFR CALC 8428680 GFR Afr Amr 59 mL/min 06/28/2017 Unknown GFR CALC 1951180 GFR Non Afr Amr 48 mL/min 06/28/2017 Unk nown COMPREHENSIVE METABOLIC 40506 AST 32 U/L 2016 Unknown COMPREHENSIVE METABOLIC 94401 ALT 22 U/L 2016 Unknown COMPREHENSIVE METABOLIC 44230 BUN 23 mg/dL 2016 Unknown COMPREHENSIVE METABOLIC 08147 ALBUMIN 4.7 g/dL 2016 Unknown COMPREHENSIVE METABOLIC 78308 CHLORIDE 89 mmol/L 2016 Unknown COMPREHENSIVE METABOLIC 93334 Bili Total 0.5 mg/dL 06/28 Unknown COMPREHENSIVE METABOLIC 69917 ALK PHOS 90 U/L 2016 Unknown COMPREHENSIVE METABOLIC 39478 SODIUM 135 mmol/L 06/28 Unknown COMPREHENSIVE METABOLIC 31261 CREATININE 1.18 mg/dL 06/10 Unknown COMPREHENSIVE METABOLIC 78754 CALCIUM 9.7 mg/dL 2016 Unknown COMPREHENSIVE METABOLIC 93801 POTASSIUM 3.5 mmol/L 06/28 Unknown COMPREHENSIVE METABOLIC 10852 Total Protein 7.7 g/dL Unknown COMPREHENSIVE METABOLIC 92643 Glucose 129 mg/dL 2016 Unknown COMPREHENSIVE METABOLIC 42900 Bicarbonate 34 mmol/L 06/10 Unknown COMPREHENSIVE METABOLIC 37985 AGAP 12 mmol/L 2016 Unknown LIPID GROUP 31989 HDL TEST 64 MG/DL 08/27/2014 Unknown LIPID GROUP 65964 TRIG 222 MG/DL 08/27/2014 Unknown LIPID GROUP 45135 TEST LDL 209 MG/DL 08/27/2014 Unknown LIPID GROUP 82768 CHOL 317 MG/DL 08/27/2014 Unknown LIPID GROUP 41628 RCHOL/HDL 4.95 RATIO 08/27/2014 Unknow n LIPID GROUP 10627 NON-HDL CH 253 MG/DL 08/27/2014 Unknow n GFR CALC 9728186 GFR AA >60 ML/MIN 08/27/2014 Unknown GFR CALC 1983997 GFR NON-AA >60 ML/MIN 08/27/2014 Unknown COMPLETE BLOOD COUNT 3637713 WBC 7.0 10e9/L 08/27/20 14 Unknown COMPLETE BLOOD COUNT [id number] RBC 4.98 10e12/L 2013 Unknown COMPLETE BLOOD COUNT 7187126 HGB 15.6 g/dL 4 Unknown COMPLETE BLOOD COUNT 7348607 HCT DET 46.5 % 4 Unknown COMPLETE BLOOD COUNT 2409109 MCV 93.4 fL 4 Unknown COMPLETE BLOOD COUNT 2522443 MCH 31.3 pg 4 Unknown COMPLETE BLOOD COUNT 9659839 MCHC 33.5 g/dL 4 Unknown COMPLETE BLOOD COUNT 9719021 PLT 309 10e9/L 08/27/20 14 Unknown COMPLETE BLOOD COUNT 4407382 MPV 9.6 fL 4 Unknown COMPLETE BLOOD COUNT 0963778 CADEN % 57.2 % 4 Unknown COMPLETE BLOOD COUNT 9342582 LY % 33.2 % 4 Unknown COMPLETE BLOOD COUNT 1735022 MON % 7.3 % 4 Unknown COMPLETE BLOOD COUNT 3489294 EOS % 2.0 % 4 Unknown COMPLETE BLOOD COUNT 0003265 BASO % 0.3 % 4 Unknown COMPLETE BLOOD COUNT 1244763 RDW 13.7 % 4 Unknown COMPLETE BLOOD COUNT [id number] ABS CADEN 4.00 10e9/L 014 Unknown COMPLETE BLOOD COUNT 9878197 ABS LYMPH 2.32 10e9/L 014 Unknown COMPLETE BLOOD COUNT 2074789 ABS MONO 0.51 10e9/L 014 Unknown COMPLETE BLOOD COUNT 0970817 ABS EOS 0.14 10e9/L 014 Unknown COMPLETE BLOOD COUNT 7318557 ABS BASO 0.02 10e9/L 014 Unknown COMPLETE BLOOD COUNT 3181836 RDW-SD 45.1 fL 4 Unknown COMPREHENSIVE METABOLIC 98183 AST 13 U/L 2013 Unknown COMPREHENSIVE METABOLIC 63783 ALT 11 IU/L 2013 Unknown COMPREHENSIVE METABOLIC 88097 BUN 23 MG/DL 2013 Unknown COMPREHENSIVE METABOLIC 53791 ALBUMIN 4.4 GM/DL 2013 Unknown COMPREHENSIVE METABOLIC 93694 CHLORIDE 99 MMOL/L 2013 Unknown COMPREHENSIVE METABOLIC 77455 BILI TOT 0.5 MG/DL 2013 Unknown COMPREHENSIVE METABOLIC 01845 ALK PHOS 56 U/L 2013 Unknown COMPREHENSIVE METABOLIC 88152 SODIUM 138 MMOL/L 08/27 Unknown COMPREHENSIVE METABOLIC 69529 CREATININE 0.95 MG/DL 08/10 Unknown COMPREHENSIVE METABOLIC 97828 CALCIUM 9.8 MG/DL 2013 Unknown COMPREHENSIVE METABOLIC 76988 POTASSIUM 3.5 MMOL/L 08/27 Unknown COMPREHENSIVE METABOLIC 56581 PROT TOT 6.8 GM/DL 2013 Unknown COMPREHENSIVE METABOLIC 67625 Glucose 90 MG/DL 2013 Unknown COMPREHENSIVE METABOLIC 62618 BICARB 34 MMOL/L 2013 Unknown COMPREHENSIVE METABOLIC 29575 ANION GAP 5 MEQ/L 2013 Unknown LIPASE 10111 LIPASE 11 IU/L 07/21/2014 Unknown AMYLASE 72715 AMYLASE 39 IU/L 07/21/2014 Unknown HEMOGLOBIN A1C (GLYCOSYLATED) 4714663 A1C HPLC 12289-2 6.2 % 03/05/2013 Unknown THYROID STIMULATING HORMONE 35637 TSH 6.986 uIU/ML 03/05/2013 Unknown COMPLETE BLOOD COUNT 6010036 WBC 12.7 10e9/L 013 Unknown COMPLETE BLOOD COUNT 3554479 RBC 4.53 10e12/L 2012 Unknown COMPLETE BLOOD COUNT 8168971 HGB 14.7 g/dL 3 Unknown COMPLETE BLOOD COUNT 7285636 HCT DET 43.1 % 3 Unknown COMPLETE BLOOD COUNT 5278179 MCV 95.1 fL 3 Unknown COMPLETE BLOOD COUNT 1724551 MCH 32.5 pg 3 Unknown COMPLETE BLOOD COUNT 0077443 MCHC 34.1 g/dL 3 Unknown COMPLETE BLOOD COUNT 2353444 PLT 346 10e9/L 03/05/20 13 Unknown COMPLETE BLOOD COUNT 1711683 MPV 9.5 fL 3 Unknown COMPLETE BLOOD COUNT 3469975 CADEN % 67.6 % 3 Unknown COMPLETE BLOOD COUNT 0859925 LY % 22.1 % 3 Unknown COMPLETE BLOOD COUNT 4880472 MON % 6.6 % 3 Unknown COMPLETE BLOOD COUNT 7525925 EOS % 3.3 % 3 Unknown COMPLETE BLOOD COUNT 5007255 BASO % 0.4 % 3 Unknown COMPLETE BLOOD COUNT 6388261 RDW 14.0 % 3 Unknown COMPLETE BLOOD COUNT 9448721 ABS CADEN 8.59 10e9/L 013 Unknown COMPLETE BLOOD COUNT 4802396 ABS LYMPH 2.81 10e9/L 013 Unknown COMPLETE BLOOD COUNT 5292376 ABS MONO 0.84 10e9/L 013 Unknown COMPLETE BLOOD COUNT 3255523 ABS EOS 0.42 10e9/L 013 Unknown COMPLETE BLOOD COUNT 3573040 ABS BASO 0.05 10e9/L 013 Unknown COMPLETE BLOOD COUNT [id number] RDW-SD 46.0 fL 03/05/201 3 Unknown FREE T4 48728 FREE T4 1.14 NG/DL 03/05/2013 Unknown COMPREHENSIVE METABOLIC 09678 AST 17 U/L 2012 Unknown COMPREHENSIVE METABOLIC 54782 ALT 12 IU/L 2012 Unknown COMPREHENSIVE METABOLIC 03374 BUN 24 MG/DL 2012 Unknown COMPREHENSIVE METABOLIC 14645 ALBUMIN 4.2 GM/DL 2012 Unknown COMPREHENSIVE METABOLIC 95508 CHLORIDE 93 MMOL/L 2012 Unknown COMPREHENSIVE METABOLIC 16593 BILI TOT 0.5 MG/DL 2012 Unknown COMPREHENSIVE METABOLIC 69912 ALK PHOS 75 U/L 2012 Unknown COMPREHENSIVE METABOLIC 42029 SODIUM 141 MMOL/L 03/05 Unknown COMPREHENSIVE METABOLIC 56694 CREATININE 1.36 MG/DL 02/09 Unknown COMPREHENSIVE METABOLIC 77176 CALCIUM 9.2 MG/DL 2012 Unknown COMPREHENSIVE METABOLIC 08199 POTASSIUM 3.1 MMOL/L 03/05 Unknown COMPREHENSIVE METABOLIC 57691 PROT TOT 6.9 GM/DL 2012 Unknown COMPREHENSIVE METABOLIC 87990 Glucose 123 MG/DL 2012 Unknown COMPREHENSIVE METABOLIC 47111 BICARB 36 MMOL/L 2012 Unknown COMPREHENSIVE METABOLIC 74419 ANION GAP 12 MEQ/L 2012 Unknown GFR CALC 7595195 GFR AA 51.0L ML/MIN 03/05/2013 Unknow n GFR CALC 1363021 GFR NON-AA 42.0L ML/MIN 03/05/2013 Unkno wn COMPREHENSIVE METABOLIC 03306 AST 14 U/L 2012 Unknown COMPREHENSIVE METABOLIC 40586 ALT 11 IU/L 2012 Unknown COMPREHENSIVE METABOLIC 95434 BUN 16 MG/DL 2012 Unknown COMPREHENSIVE METABOLIC 48325 ALBUMIN 4.2 GM/DL 2012 Unknown COMPREHENSIVE METABOLIC 01029 CHLORIDE 98 MMOL/L 2012 Unknown COMPREHENSIVE METABOLIC 67693 BILI TOT 0.4 MG/DL 2012 Unknown COMPREHENSIVE METABOLIC 20703 ALK PHOS 77 U/L 2012 Unknown COMPREHENSIVE METABOLIC 50415 SODIUM 139 MMOL/L 09/25 Unknown COMPREHENSIVE METABOLIC 24550 CREATININE 0.86 MG/DL 09/10 Unknown COMPREHENSIVE METABOLIC 91011 CALCIUM 9.5 MG/DL 2012 Unknown COMPREHENSIVE METABOLIC 39682 POTASSIUM 3.8 MMOL/L 09/25 Unknown COMPREHENSIVE METABOLIC 23434 PROT TOT 6.8 GM/DL 2012 Unknown COMPREHENSIVE METABOLIC 30634 Glucose 91 MG/DL 2012 Unknown COMPREHENSIVE METABOLIC 13441 BICARB 32 MMOL/L 2012 Unknown COMPREHENSIVE METABOLIC 28312 ANION GAP 9 MEQ/L 2012 Unknown FREE T4 86180 FREE T4 0.98 NG/DL 09/25/2012 Unknown THYROID STIMULATING HORMONE 75212 TSH 1.736 uIU/ML 09/25/2012 Unknown C-REACTIVE PROTEIN (CRP) QUANT 07072 CRP 2.3 MG/DL 09/25/2012 Unknown COMPLETE BLOOD COUNT [id number] WBC 11.9 10e9/L 013 Unknown COMPLETE BLOOD COUNT [id number] RBC 4.87 10e12/L 2012 Unknown COMPLETE BLOOD COUNT [id number] HGB 15.1 g/dL 3 Unknown COMPLETE BLOOD COUNT [id number] HCT DET 44.8 % 3 Unknown COMPLETE BLOOD COUNT [id number] MCV 92.0 fL 3 Unknown COMPLETE BLOOD COUNT [id number] MCH 31.0 pg 3 Unknown COMPLETE BLOOD COUNT [id number] MCHC 33.7 g/dL 3 Unknown COMPLETE BLOOD COUNT [id number] PLT 343 10e9/L 09/25/19 13 Unknown COMPLETE BLOOD COUNT [id number] MPV 9.0 fL 3 Unknown COMPLETE BLOOD COUNT [id number] CADEN % 68.2 % 3 Unknown COMPLETE BLOOD COUNT [id number] LY % 22.4 % 3 Unknown COMPLETE BLOOD COUNT [id number] MON % 6.4 % 3 Unknown COMPLETE BLOOD COUNT [id number] EOS % 2.7 % 3 Unknown COMPLETE BLOOD COUNT [id number] BASO % 0.3 % 3 Unknown COMPLETE BLOOD COUNT [id number] RDW 13.8 % 3 Unknown COMPLETE BLOOD COUNT [id number] ABS CADEN 8.12 10e9/L 013 Unknown COMPLETE BLOOD COUNT [id number] ABS LYMPH 2.67 10e9/L 013 Unknown COMPLETE BLOOD COUNT [id number] ABS MONO 0.76 10e9/L 013 Unknown COMPLETE BLOOD COUNT [id number] ABS EOS 0.32 10e9/L 013 Unknown COMPLETE BLOOD COUNT [id number] ABS BASO 0.04 10e9/L 013 Unknown COMPLETE BLOOD COUNT [id number] RDW-SD 45.6 fL 3 Unknown GFR CALC [id number] GFR AA >60 ML/MIN 09/25/2012 Unknown GFR CALC [id number] GFR NON-AA >60 ML/MIN 09/25/2012 Unknown ERYTHROCYTE SEDIMENTATION RATE 51532 ESR 19 MM/HR 05/06/2012 Unknown VITAMIN B 12 FOLIC ACID 43474|42734 VIT B 12 922 PG/ML 04/11 Unknown VITAMIN B 12 FOLIC ACID 06752|98747 FOLIC ACID 13.6 NG/ML Unknown URIC ACID 54143 URIC ACID 7.8 MG/DL 05/06/2012 Unknown COMPLETE BLOOD COUNT 64446 WBC 11.9 10e9/L 012 Unknown COMPLETE BLOOD COUNT 39991 RBC 5.30 10e12/L 2011 Unknown COMPLETE BLOOD COUNT 54370 HGB 16.6 g/dL 2 Unknown COMPLETE BLOOD COUNT 46580 HCT DET 47.2 % 2 Unknown COMPLETE BLOOD COUNT 27380 MCV 89.1 fL 2 Unknown COMPLETE BLOOD COUNT 51510 MCH 31.3 pg 2 Unknown COMPLETE BLOOD COUNT 38675 MCHC 35.2 g/dL 2 Unknown COMPLETE BLOOD COUNT 01425 PLT 362 10e9/L 05/06/20 12 Unknown COMPLETE BLOOD COUNT 58263 MPV 9.4 fL 2 Unknown COMPLETE BLOOD COUNT 13835 CADEN % 68.2 % 2 Unknown COMPLETE BLOOD COUNT 25127 LY % 22.0 % 2 Unknown COMPLETE BLOOD COUNT 36160 MON % 6.9 % 2 Unknown COMPLETE BLOOD COUNT 74857 EOS % 2.6 % 2 Unknown COMPLETE BLOOD COUNT 22961 BASO % 0.3 % 2 Unknown COMPLETE BLOOD COUNT 29600 RDW 12.8 % 2 Unknown COMPLETE BLOOD COUNT 38750 ABS CADEN 8.12 10e9/L 012 Unknown COMPLETE BLOOD COUNT 17138 ABS LYMPH 2.62 10e9/L 012 Unknown COMPLETE BLOOD COUNT 67541 ABS MONO 0.82 10e9/L 012 Unknown COMPLETE BLOOD COUNT 32939 ABS EOS 0.31 10e9/L 012 Unknown COMPLETE BLOOD COUNT 83999 ABS BASO 0.04 10e9/L 012 Unknown COMPLETE BLOOD COUNT 79007 RDW-SD 41.5 fL 2 Unknown GFR CALC [id number] GFR AA >60 ML/MIN 05/06/2012 Unknown GFR CALC [id number] GFR NON-AA 58.0L ML/MIN 05/06/2012 Unkno wn FREE T4 15674 FREE T4 1.15 NG/DL 05/06/2012 Unknown THYROID STIMULATING HORMONE 29178 TSH 1.568 uIU/ML 05/06/2012 Unknown COMPREHENSIVE METABOLIC 17664 AST 20 U/L 2011 Unknown COMPREHENSIVE METABOLIC 00594 ALT 12 IU/L 2011 Unknown COMPREHENSIVE METABOLIC 44581 BUN 20 MG/DL 2011 Unknown COMPREHENSIVE METABOLIC 63305 ALBUMIN 4.5 GM/DL 2011 Unknown COMPREHENSIVE METABOLIC 99203 CHLORIDE 91 MMOL/L 2011 Unknown COMPREHENSIVE METABOLIC 92991 BILI TOT 0.4 MG/DL 2011 Unknown COMPREHENSIVE METABOLIC 58281 ALK PHOS 73 U/L 2011 Unknown COMPREHENSIVE METABOLIC 72245 SODIUM 139 MMOL/L 05/06 Unknown COMPREHENSIVE METABOLIC 73695 CREATININE 1.02 MG/DL 04/11 Unknown COMPREHENSIVE METABOLIC 71656 CALCIUM 9.7 MG/DL 2011 Unknown COMPREHENSIVE METABOLIC 44423 POTASSIUM 3.1 MMOL/L 05/06 Unknown COMPREHENSIVE METABOLIC 38029 PROT TOT 7.3 GM/DL 2011 Unknown COMPREHENSIVE METABOLIC 73105 Glucose 118 MG/DL 2011 Unknown COMPREHENSIVE METABOLIC 63766 BICARB 33 MMOL/L 2011 Unknown COMPREHENSIVE METABOLIC 76346 ANION GAP 15 MEQ/L 2011 Unknown Procedures Procedure Codes Date COMPREHEN METABOLIC PANEL CPT-4: 51976 02/12/2020 A1C HPLC CPT-4: 87488 02/12/2020 ROUTINE VENIPUNCTURE CPT-4: 98365 09/29/2019 URINALYSIS NONAUTO W/O SCOPE CPT-4: 46792 09/29/2019 COMPREHEN METABOLIC PANEL CPT-4: 55923 09/29/2019 LIPID PANEL CPT-4: 71326 09/29/2019 A1C HPLC CPT-4: 90953 09/29/2019 ASSAY OF FREE THYROXINE CPT-4: 21133 09/29/2019 ASSAY THYROID STIM HORMONE CPT-4: 40222 09/29/2019 COMPLETE CBC W/AUTO DIFF WBC CPT-4: 48387 09/29/2019 URINALYSIS NONAUTO W/O SCOPE CPT-4: 19003 09/30/2018 MICROALBUMIN QUANTITATIVE CPT-4: 53061 09/30/2018 CEFTRIAXONE SODIUM INJECTION CPT-4: J0696 06/19/2018 THER/PROPH/DIAG INJ SC/IM CPT-4: 55287 06/19/2018 CEFTRIAXONE SODIUM INJECTION CPT-4: J0696 06/17/2018 THER/PROPH/DIAG INJ SC/IM CPT-4: 11735 06/17/2018 THER/PROPH/DIAG INJ SC/IM CPT-4: 34463 05/16/2018 KETOROLAC TROMETHAMINE INJ CPT-4: J1885 05/16/2018 ONDANSETRON HCL INJECTION CPT-4: J2405 05/16/2018 THER/PROPH/DIAG INJ SC/IM CPT-4: 01536 05/16/2018 ROUTINE VENIPUNCTURE CPT-4: 21475 03/20/2018 COMPREHEN METABOLIC PANEL CPT-4: 49455 03/20/2018 DEXAMETHASONE SODIUM PHOS CPT-4: J1100 02/11/2018 THER/PROPH/DIAG INJ SC/IM CPT-4: 69492 02/11/2018 TRIAMCINOLONE ACET INJ NOS CPT-4: J3301 02/11/2018 CEFTRIAXONE SODIUM INJECTION CPT-4: J0696 02/01/2018 THER/PROPH/DIAG INJ SC/IM CPT-4: 06456 02/01/2018 CEFTRIAXONE SODIUM INJECTION CPT-4: J0696 01/30/2018 THER/PROPH/DIAG INJ SC/IM CPT-4: 51593 01/30/2018 ROUTINE VENIPUNCTURE CPT-4: 72367 12/10/2017 ASSAY OF FREE THYROXINE CPT-4: 36051 12/10/2017 ASSAY THYROID STIM HORMONE CPT-4: 61283 12/10/2017 COMPREHEN METABOLIC PANEL CPT-4: 06747 12/10/2017 COMPLETE CBC W/AUTO DIFF WBC CPT-4: 75283 12/10/2017 LIPID PANEL CPT-4: 64421 12/10/2017 A1C HPLC CPT-4: 86116 12/10/2017 CEFTRIAXONE SODIUM INJECTION CPT-4: J0696 12/10/2017 THER/PROPH/DIAG INJ SC/IM CPT-4: 40755 12/10/2017 CEFTRIAXONE SODIUM INJECTION CPT-4: J0696 12/07/2017 THER/PROPH/DIAG INJ SC/IM CPT-4: 18202 12/07/2017 DEXAMETHASONE SODIUM PHOS CPT-4: J1100 12/07/2017 THER/PROPH/DIAG INJ SC/IM CPT-4: 95147 12/07/2017 CEFTRIAXONE SODIUM INJECTION CPT-4: J0696 10/08/2017 THER/PROPH/DIAG INJ SC/IM CPT-4: 92626 10/08/2017 CEFTRIAXONE SODIUM INJECTION CPT-4: J0696 09/21/2017 THER/PROPH/DIAG INJ SC/IM CPT-4: 27596 09/21/2017 CEFTRIAXONE SODIUM INJECTION CPT-4: J0696 09/20/2017 THER/PROPH/DIAG INJ SC/IM CPT-4: 28906 09/20/2017 REMOVAL OF NAIL PLATE CPT-4: 86435 08/29/2017 THER/PROPH/DIAG INJ SC/IM CPT-4: 17067 08/29/2017 TRIAMCINOLONE ACET INJ NOS CPT-4: J3301 08/29/2017 CEFTRIAXONE SODIUM INJECTION CPT-4: J0696 08/29/2017 THER/PROPH/DIAG INJ SC/IM CPT-4: 41887 08/29/2017 DESTRUCT PREMALG LESION (Cryosurgery) CPT-4: 45939 ROUTINE VENIPUNCTURE CPT-4: 55418 06/27/2017 ASSAY OF FREE THYROXINE CPT-4: 59752 06/27/2017 ASSAY THYROID STIM HORMONE CPT-4: 57184 06/27/2017 COMPREHEN METABOLIC PANEL CPT-4: 49440 06/27/2017 COMPLETE CBC W/AUTO DIFF WBC CPT-4: 27943 06/27/2017 EXC TR-EXT B9+REECE 0.5 CM< CPT-4: 41181 01/24/2017 THER/PROPH/DIAG INJ SC/IM CPT-4: 83328 08/02/2016 DEXAMETHASONE SODIUM PHOS CPT-4: J1100 08/02/2016 DESTRUCT PREMALG LESION (Cryosurgery) CPT-4: 80537 EXC TR-EXT B9+REECE 0.5 CM< CPT-4: 74633 08/01/2016 AEROBIC WOUND CULTURE & STN CPT-4: 19413 07/06/2016 CEFTRIAXONE SODIUM INJECTION CPT-4: J0696 05/25/2016 THER/PROPH/DIAG INJ SC/IM CPT-4: 64886 05/25/2016 THER/PROPH/DIAG INJ SC/IM CPT-4: 40946 04/26/2016 DEXAMETHASONE SODIUM PHOS CPT-4: J1100 04/26/2016 CEFTRIAXONE SODIUM INJECTION CPT-4: J0696 04/26/2016 THER/PROPH/DIAG INJ SC/IM CPT-4: 21329 04/26/2016 THER/PROPH/DIAG INJ SC/IM CPT-4: 50238 02/09/2016 TRIAMCINOLONE ACET INJ NOS CPT-4: J3301 02/09/2016 URINALYSIS NONAUTO W/O SCOPE CPT-4: 04998 01/24/2016 URINE CULTURE/ COLONY COUNT CPT-4: 21282 01/24/2016 THER/PROPH/DIAG INJ SC/IM CPT-4: 35321 12/08/2015 TRIAMCINOLONE ACET INJ NOS CPT-4: J3301 12/08/2015 THER/PROPH/DIAG INJ SC/IM CPT-4: 81054 10/07/2015 TRIAMCINOLONE ACET INJ NOS CPT-4: J3301 10/07/2015 DESTRUCT PREMALG LESION (Cryosurgery) CPT-4: 27078 THER/PROPH/DIAG INJ SC/IM CPT-4: 48961 03/16/2015 METHYLPREDNISOLONE 40 MG INJ CPT-4: J1030 03/16/2015 DESTRUCT PREMALG LESION (Cryosurgery) CPT-4: 86487 THER/PROPH/DIAG INJ SC/IM CPT-4: 22460 09/11/2014 METHYLPREDNISOLONE 40 MG INJ CPT-4: J1030 09/11/2014 TRIAMCINOLONE ACET INJ NOS CPT-4: J3301 09/11/2014 CEFTRIAXONE SODIUM INJECTION CPT-4: J0696 09/11/2014 THER/PROPH/DIAG INJ SC/IM CPT-4: 13766 09/11/2014 ROUTINE VENIPUNCTURE CPT-4: 23102 08/27/2014 COMPREHEN METABOLIC PANEL CPT-4: 44945 08/27/2014 COMPLETE CBC W/AUTO DIFF WBC CPT-4: 99347 08/27/2014 LIPID PANEL CPT-4: 80255 08/27/2014 ROUTINE VENIPUNCTURE CPT-4: 33238 07/21/2014 ASSAY OF AMYLASE CPT-4: 70458 07/21/2014 ASSAY OF LIPASE CPT-4: 25035 07/21/2014 THER/PROPH/DIAG INJ SC/IM CPT-4: 75663 07/15/2014 TRIAMCINOLONE ACET INJ NOS CPT-4: J3301 07/15/2014 ROUTINE VENIPUNCTURE CPT-4: 06406 05/14/2014 ASSAY OF FREE THYROXINE CPT-4: 77975 05/14/2014 ASSAY THYROID STIM HORMONE CPT-4: 13014 05/14/2014 COMPREHEN METABOLIC PANEL CPT-4: 37618 05/14/2014 COMPLETE CBC W/AUTO DIFF WBC CPT-4: 23847 05/14/2014 LIPID PANEL CPT-4: 40094 05/14/2014 CEFTRIAXONE SODIUM INJECTION CPT-4: J0696 04/21/2014 THER/PROPH/DIAG INJ SC/IM CPT-4: 81819 04/21/2014 THER/PROPH/DIAG INJ SC/IM CPT-4: 39536 04/21/2014 TRIAMCINOLONE ACET INJ NOS CPT-4: J3301 04/21/2014 THER/PROPH/DIAG INJ SC/IM CPT-4: 67497 03/04/2014 METHYLPREDNISOLONE 40 MG INJ CPT-4: J1030 03/04/2014 TRIAMCINOLONE ACET INJ NOS CPT-4: J3301 03/04/2014 CEFTRIAXONE SODIUM INJECTION CPT-4: J0696 03/04/2014 THER/PROPH/DIAG INJ SC/IM CPT-4: 74661 03/04/2014 TDAP VACCINE 7 YRS/> IM CPT-4: 10141 02/27/2014 IMMUNIZATION ADMIN CPT-4: 02784 02/27/2014 DESTRUCT PREMALG LESION (Cryosurgery) CPT-4: 57985 DESTRUCT PREMALG LES 2-14 CPT-4: 10863 01/13/2014 THER/PROPH/DIAG INJ SC/IM CPT-4: 03164 10/21/2013 METHYLPREDNISOLONE 40 MG INJ CPT-4: J1030 10/21/2013 TRIAMCINOLONE ACET INJ NOS CPT-4: J3301 10/21/2013 CEFTRIAXONE SODIUM INJECTION CPT-4: J0696 08/27/2013 THER/PROPH/DIAG INJ SC/IM CPT-4: 38416 08/27/2013 THER/PROPH/DIAG INJ SC/IM CPT-4: 36627 08/27/2013 METHYLPREDNISOLONE 40 MG INJ CPT-4: J1030 08/27/2013 TRIAMCINOLONE ACET INJ NOS CPT-4: J3301 08/27/2013 THER/PROPH/DIAG INJ SC/IM CPT-4: 75846 06/23/2013 METHYLPREDNISOLONE 40 MG INJ CPT-4: J1030 06/23/2013 TRIAMCINOLONE ACET INJ NOS CPT-4: J3301 06/23/2013 THER/PROPH/DIAG INJ SC/IM CPT-4: 59917 05/26/2013 METHYLPREDNISOLONE 40 MG INJ CPT-4: J1030 05/26/2013 TRIAMCINOLONE ACET INJ NOS CPT-4: J3301 05/26/2013 ROUTINE VENIPUNCTURE CPT-4: 84652 03/05/2013 ASSAY OF FREE THYROXINE CPT-4: 07131 03/05/2013 ASSAY THYROID STIM HORMONE CPT-4: 34303 03/05/2013 COMPREHEN METABOLIC PANEL CPT-4: 81404 03/05/2013 COMPLETE CBC W/AUTO DIFF WBC CPT-4: 89690 03/05/2013 A1C GLYCOSYLATED HEMOGLOBIN TEST CPT-4: 60862 013 DRAIN/INJECT JOINT/BURSA CPT-4: 11110 12/04/2012 METHYLPREDNISOLONE 40 MG INJ CPT-4: J1030 12/04/2012 TRIAMCINOLONE ACET INJ NOS CPT-4: J3301 12/04/2012 CEFTRIAXONE SODIUM INJECTION CPT-4: J0696 11/21/2012 THER/PROPH/DIAG INJ SC/IM CPT-4: 84298 11/21/2012 THER/PROPH/DIAG INJ SC/IM CPT-4: 04442 10/14/2012 METHYLPREDNISOLONE 40 MG INJ CPT-4: J1030 10/14/2012 TRIAMCINOLONE ACET INJ NOS CPT-4: J3301 10/14/2012 URINALYSIS NONAUTO W/O SCOPE CPT-4: 34502 09/27/2012 ROUTINE VENIPUNCTURE CPT-4: 81690 09/25/2012 ASSAY OF FREE THYROXINE CPT-4: 38183 09/25/2012 ASSAY THYROID STIM HORMONE CPT-4: 00413 09/25/2012 COMPREHEN METABOLIC PANEL CPT-4: 56950 09/25/2012 COMPLETE CBC W/AUTO DIFF WBC CPT-4: 41915 09/25/2012 C-REACTIVE PROTEIN CPT-4: 74995 09/25/2012 THER/PROPH/DIAG INJ SC/IM CPT-4: 47300 08/29/2012 METHYLPREDNISOLONE 40 MG INJ CPT-4: J1030 08/29/2012 TRIAMCINOLONE ACET INJ NOS CPT-4: J3301 08/29/2012 DESTRUCT PREMALG LESION (Cryosurgery) CPT-4: 40499 THER/PROPH/DIAG INJ SC/IM CPT-4: 98660 05/06/2012 METHYLPREDNISOLONE 40 MG INJ CPT-4: J1030 05/06/2012 TRIAMCINOLONE ACET INJ NOS CPT-4: J3301 05/06/2012 VITAMIN B 12 FOLIC ACID CPT-4: 17471|37012 05/06/2012 RBC SED RATE AUTOMATED CPT-4: 74812 05/06/2012 ROUTINE VENIPUNCTURE CPT-4: 31330 05/06/2012 ASSAY OF FREE THYROXINE CPT-4: 51015 05/06/2012 ASSAY THYROID STIM HORMONE CPT-4: 50211 05/06/2012 COMPREHEN METABOLIC PANEL CPT-4: 55820 05/06/2012 COMPLETE CBC W/AUTO DIFF WBC CPT-4: 62231 05/06/2012 ASSAY OF BLOOD/URIC ACID CPT-4: 47870 05/06/2012 THER/PROPH/DIAG INJ SC/IM CPT-4: 53428 03/19/2012 KETOROLAC TROMETHAMINE INJ CPT-4: J1885 03/19/2012 KETOROLAC TROMETHAMINE INJ CPT-4: J1885 01/30/2012 THER/PROPH/DIAG INJ SC/IM CPT-4: 36052 01/30/2012 PROMETHAZINE HCL INJECTION CPT-4: J2550 01/30/2012 THER/PROPH/DIAG INJ SC/IM CPT-4: 71368 01/24/2012 METHYLPREDNISOLONE 40 MG INJ CPT-4: J1030 01/24/2012 TRIAMCINOLONE ACET INJ NOS CPT-4: J3301 01/24/2012 THER/PROPH/DIAG INJ SC/IM CPT-4: 59185 09/13/2011 KETOROLAC TROMETHAMINE INJ CPT-4: J1885 09/13/2011 THER/PROPH/DIAG INJ SC/IM CPT-4: 43779 09/13/2011 PROMETHAZINE HCL INJECTION CPT-4: J2550 09/13/2011 CEFTRIAXONE SODIUM INJECTION CPT-4: J0696 07/20/2011 THER/PROPH/DIAG INJ SC/IM CPT-4: 71810 07/20/2011 THER/PROPH/DIAG INJ SC/IM CPT-4: 08551 07/20/2011 METHYLPREDNISOLONE INJECTION CPT-4: J2930 07/20/2011 URINALYSIS NONAUTO W/O SCOPE CPT-4: 29987 05/09/2011 CEFTRIAXONE SODIUM INJECTION CPT-4: J0696 05/09/2011 THER/PROPH/DIAG INJ SC/IM CPT-4: 44721 05/09/2011 THER/PROPH/DIAG INJ SC/IM CPT-4: 86617 05/09/2011 PROMETHAZINE HCL INJECTION CPT-4: J2550 05/09/2011 HYDRATION IV INFUSION INIT CPT-4: 33167 05/09/2011 DESTRUCT PREMALG LESION (Cryosurgery) CPT-4: 11885 DESTRUCT PREMALG LES 2-14 CPT-4: 51024 07/19/2010 REMOVAL OF SKIN TAGS <W/15 CPT-4: 49064 05/30/2010 THER/PROPH/DIAG INJ SC/IM CPT-4: 40941 04/05/2010 CEFTRIAXONE SODIUM INJECTION CPT-4: J0696 04/05/2010 TRIAMCINOLONE ACET INJ NOS CPT-4: J3301 04/05/2010 METHYLPREDNISOLONE 40 MG INJ CPT-4: J1030 04/05/2010 THER/PROPH/DIAG INJ SC/IM CPT-4: 86057 04/05/2010 TRIAMCINOLONE ACET INJ NOS CPT-4: J3301 03/09/2010 METHYLPREDNISOLONE 40 MG INJ CPT-4: J1030 03/09/2010 THER/PROPH/DIAG INJ SC/IM CPT-4: 98609 03/09/2010 THER/PROPH/DIAG INJ SC/IM CPT-4: 11907 03/09/2010 CEFTRIAXONE SODIUM INJECTION CPT-4: J0696 03/09/2010 [...] 1: 132/80 Code: 8480-6 BMI: 35.8 Code: 31141-8 Heart Rate 1: 88 bpm Height: 5'4" Respiratory Rate: 20 bpm SpO2: 95% Tempera ture: 36.9 (C) / 98.5 (F) Weight: 210 lbs 05/28/2019 Blood Pressure 1: 126/82 Code: 8480-6 BMI: 35.0 Code: 58732-1 Heart Rate 1: 88 bpm Height: 5'4" [...] 1: 128/90 Code: 8480-6 BMI: 37.2 Code: 18485-9 Heart Rate 1: 84 bpm Height: 5'4" Respiratory Rate: 20 bpm SpO2: 95% Tempera ture: 36.6 (C) / 97.8 (F) Weight: 217 lbs 08/27/2018 Blood Pressure 1: 128/88 Code: 8480-6 BMI: 38.3 Code: 05131-0 Heart Rate 1: 84 bpm Height: 5'4" [...] 1: 119/72 Code: 8480-6 BMI: 37.4 Code: 46696-8 Heart Rate 1: 82 bpm Height: 5'4" Respiratory Rate: 12 bpm SpO2: 94% Tempera ture: 35.2 (C) / 95.4 (F) Weight: 218 lbs 12/18/2017 Blood Pressure 1: 128/86 Code: 8480-6 BMI: 37.8 Code: 52866-9 Heart Rate 1: 84 bpm Height: 5'4" [...] 1: 128/82 Code: 8480-6 BMI: 35.5 Code: 13621-1 Heart Rate 1: 84 bpm Height: 5'4" [...] 1: 128/82 Code: 8480-6 BMI: 30.2 Code: 56330-7 Heart Rate 1: 80 bpm Height: 5'4" [...] 1: 128/86 Code: 8480-6 BMI: 32.8 Code: 83480-5 Heart Rate 1: 66 bpm Height: 5'4" Respiratory Rate: 18 bpm Temperature: 36 .3 (C) / 97.3 (F) Weight: 191 lbs 06/23/2013 Blood Pressure 1: 132/94 Code: 8480-6 BMI: 34.0 Code: 72688-5 Heart Rate 1: 84 bpm Height: 5'4" Respiratory Rate: 20 bpm Temperature: 36 .8 (C) / 98.2 (F) Weight: 198 lbs 05/26/2013 Blood Pressure 1: 114/80 Code: 8480-6 BMI: 35.0 Code: 63364-2 Heart Rate 1: 80 bpm Height: 5'4" Respiratory Rate: 20 bpm Temperature: 36 .4 (C) / 97.6 (F) Weight: 204 lbs 04/16/2013 Blood Pressure 1: 114/82 Code: 8480-6 BMI: 36.7 Code: 24018-7 Heart Rate 1: 84 bpm Height: 5'4" Respiratory Rate: 20 bpm Temperature: 36 .7 (C) / 98.0 (F) Weight: 214 lbs 03/05/2013 Blood Pressure 1: 136/90 Code: 8480-6 BMI: 37.1 Code: 04323-1 Heart Rate 1: 84 bpm Height: 5'4" [...] 1: 168/114 Code: 8480-6 BMI: 36.2 Code: 65836-7 Heart Rate 1: 104 bpm Height: 5'4" Respiratory Rate: 20 bpm Temperature: 36 .8 (C) / 98.2 (F) Weight: 211 lbs 11/22/2012 Blood Pressure 1: 128/90 Code: 8480-6 Heart Rate 1: 88 bpm Respiratory Rate: 20 bpm SpO2: 96% Temperature: 36.8 (C) / 98.2 (F) 11/21/2012 Blood Pressure 1: 146/100 Code: 8480-6 BMI: 35.7 Code: 26171-4 Heart Rate 1: 96 bpm Height: 5'4" [...] 1: 138/100 Code: 8480-6 BMI: 35.7 Code: 38301-1 Heart Rate 1: 96 bpm Height: 5'4" Respiratory Rate: 20 bpm Temperature: 36 .8 (C) / 98.2 (F) Weight: 208 lbs 05/06/2012 Blood Pressure 1: 154/102 Code: 8480-6 BMI: 34.7 Code: 66711-3 Heart Rate 1: 116 bpm Height: 5'4" Respiratory Rate: 20 bpm Temperature: 36 .8 (C) / 98.2 (F) Weight: 202 lbs 04/03/2012 Blood Pressure 1: 134/94 Code: 8480-6 BMI: 34.8 Code: 73245-4 Heart Rate 1: 108 bpm Height: 5'4" Respiratory Rate: 20 bpm Temperature: 36 .8 (C) / 98.2 (F) Weight: 203 lbs 03/19/2012 Blood Pressure 1: 148/106 Code: 8480-6 BMI: 35.0 Code: 79366-5 Heart Rate 1: 100 bpm Height: 5'4" Respiratory Rate: 20 bpm Temperature: 36 .6 (C) / 97.9 (F) Weight: 204 lbs 02/22/2012 Blood Pressure 1: 146/94 Code: 8480-6 He art Rate 1: 88 bpm 02/21/2012 Blood Pressure 1: 172/120 Code: 8480-6 B lood Pressure 2: 152/106 Code: 8480-6 Heart Rate 1: 116 bpm 02/20/2012 Blood Pressure 1: 160/100 Code: 8480-6 BMI: 32.0 Code: 32980-4 Heart Rate 1: 84 bpm Height: 5'7" Temperature: 36.5 (C) / 97.7 (F) Weight: 204 lbs 01/30/2012 Blood Pressure 1: 152/110 Code: 8480-6 BMI: 32.0 Code: 33386-1 Heart Rate 1: 116 bpm Height: 5'7" Respiratory Rate: 20 bpm Temperature: 37 .0 (C) / 98.6 (F) Weight: 204 lbs 01/24/2012 Blood Pressure 1: 146/100 Code: 8480-6 BMI: 32.0 Code: 21467-7 Heart Rate 1: 100 bpm Height: 5'7" Respiratory Rate: 20 bpm Temperature: 36 .7 (C) / 98.0 (F) Weight: 204 lbs 01/10/2012 Blood Pressure 1: 156/94 Code: 8480-6 BMI: 32.6 Code: 66623-5 Heart Rate 1: 72 bpm Height: 5'7" Respiratory Rate: 20 bpm Temperature: 36 .8 (C) / 98.2 (F) Weight: 208 lbs 12/11/2011 Blood Pressure 1: 146/100 Code: 8480-6 Heart Rat e 1: 116 bpm Height: 5'7" Respiratory Rate: 20 bpm Temperature: 36.9 (C) / 98.4 (F) We ight: 11/09/2011 Blood Pressure 1: 148/96 Code: 8480-6 BMI: 32.1 Code: 99944-6 Heart Rate 1: 116 bpm Height: 5'7" Respiratory Rate: 20 bpm Temperature: 36 .7 (C) / 98.0 (F) Weight: 205 lbs 09/13/2011 Blood Pressure 1: 126/88 Code: 8480-6 Heart Rate 1: 88 bpm Height: 5'7" Respiratory Rate: 20 bpm Temperature: 36.9 (C) / 98.4 (F) We ight: 08/31/2011 Blood Pressure 1: 118/82 Code: 8480-6 BMI: 32.0 Code: 57126-2 Heart Rate 1: 80 bpm Height: 5'7" Temperature: 36.4 (C) / 97.6 (F) Weight: 204 lbs 07/06/2011 Blood Pressure 1: 128/86 Code: 8480-6 BMI: 30.9 Code: 23712-1 Heart Rate 1: 92 bpm Height: 5'7" Respiratory Rate: 20 bpm Temperature: 36 .9 (C) / 98.4 (F) Weight: 197 lbs 06/06/2011 Blood Pressure 1: 112/74 Code: 8480-6 BMI: 31.0 Code: 66785-2 Heart Rate 1: 72 bpm Height: 5'7" [...] 1: 128/92 Code: 8480-6 BMI: 33.6 Code: 37415-9 Heart Rate 1: 104 bpm Height: 5'4" [...] Check-up Encounters Encounter Performer Location Codes Date ([id number]) OFFICE/OUTPATIENT VISIT EST Diagnosis: Cellulitis of left foot[ICD10: L03.116] María Elena Hicks [facility] CPT-4: 65523 03/04/2020 ([id number]) OFFICE/OUTPATIENT VISIT EST Diagnosis: Blister (nonthermal), right foot, initial encounter[ICD10: S90.821A] Diagnosis: Type 2 diabetes mellitus with hyperglycemia[ICD10: E11.65] Diagnosis: Lower extremity edema[ICD10: R60.0] Kathleen Hicks [facility] CPT-4: 83783 02/12/2020 ([id number]) OFFICE/OUTPATIENT VISIT EST Diagnosis: Essential (primary) hypertension[ICD10: I10] Diagnosis: Type 2 diabetes mellitus with hyperglycemia[ICD10: E11.65] Diagnosis: Allergic rhinitis[ICD10: J30.9] María Elena APPIAH DO [facility] CPT-4: 44831 01/13/2020 ([id number]) OFFICE/OUTPATIENT VISIT EST Diagnosis: Type 2 diabetes mellitus with hyperglycemia[ICD10: E11.65] María Elena APPIAH DO [facility] CPT-4: 21425 11/20/2019 ([id number]) OFFICE/OUTPATIENT VISIT EST Diagnosis: Ingrowing nail[ICD10: L60.0] Diagnosis: Type 2 diabetes mellitus with hyperglycemia[ICD10: E11.65] Kathleen APPIAH DO [facility] CPT-4: 34795 10/07/2019 ([id number]) OFFICE/OUTPATIENT VISIT EST Diagnosis: DM w/o complication type II, uncontrolled[ICD10: E11.65] Diagnosis: Hypertriglyceridemia[ICD10: E78.1] Diagnosis: Essential hypertension[ICD10: I10] María Elenaalcides MONTEROLESLIE APPIAH [facility] CPT-4: 47466 09/30/2019 ([id number]) NURSE/OUTPATIENT VISIT EST Diagnosis: Essential (primary) hypertension[ICD10: I10] Diagnosis: Cervicalgia[ICD10: M54.2] Diagnosis: Hyperglycemia, 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: R73.9] Diagnosis: Mixed hyperlipidemia[ICD10: E78.2] María Elena Waltyesimaryjane MONTEROLESLIE TED APPIAH [place] CPT-4: 42443 09/29/2019 ([id number]) OFFICE/OUTPATIENT VISIT EST Diagnosis: Essential (primary) hypertension[ICD10: I10] Diagnosis: Fall from bed, sequela[ICD10: W06.XXXS] María Elena Waltdawn KYLAH BRAUNALCIDES Fabiola APPIAH [facility] CPT-4: 39042 05/28/2019 ([id number]) NURSE/OUTPATIENT VISIT EST Diagnosis: Essential (primary) hypertension[ICD10: I10] María Elenaalcides Appiah MARÍA ELENA Fabiola APPIAH DO [facility] CPT-4: 72228 05/19/2019 ([id number]) OFFICE/OUTPATIENT VISIT EST Diagnosis: Essential (primary) hypertension[ICD10: I10] Diagnosis: Type 2 diabetes mellitus with hyperglycemia[ICD10: E11.65] Diagnosis: Intervertebral disc disorders with radiculopathy, 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] Diagnosis: Hormone replacement therapy[ICD10: Z79.890] María Elena APPIAH [facility] CPT-4: 55150 01/22/2019 ([id number]) OFFICE/OUTPATIENT VISIT EST Diagnosis: Essential (primary) hypertension[ICD10: I10] Diagnosis: Type 2 diabetes mellitus with hyperglycemia[ICD10: E11.65] María Elena APPIAH [facility] CPT-4: 29838 09/30/2018 ([id number]) OFFICE/OUTPATIENT VISIT EST Diagnosis: Pain in left elbow[ICD10: M25.522] Diagnosis: Acute stress reaction[ICD10: F43.0] Diagnosis: Primary insomnia[ICD10: F51.01] Diagnosis: Abnormal weight gain[ICD10: R63.5] María Elena APPIAH [facility] CPT-4: 71489 08/27/2018 ([id number]) OFFICE/OUTPATIENT VISIT EST Diagnosis: Acute recurrent sinusitis, 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: J01.91] Diagnosis: Follicular disorder, 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: L73.9] Diagnosis: Tinea corporis[ICD10: B35.4] María Elena APPIAH [facility] CPT-4: 39089 08/09/2018 ([id number]) OFFICE/OUTPATIENT VISIT EST Diagnosis: Tinea corporis[ICD10: B35.4] Diagnosis: Anxiety disorder, 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: F41.9] Diagnosis: Menopausal and female climacteric states[ICD10: N95.1] María Elena APPIAH [facility] CPT-4: 40971 07/22/2018 ([id number]) NURSE/OUTPATIENT VISIT EST Diagnosis: Cellulitis of right toe[ICD10: L03.031] María Elena APPIAH [facility] CPT-4: 46498 06/19/2018 ([id number]) OFFICE/OUTPATIENT VISIT EST Diagnosis: Cellulitis of right toe[ICD10: L03.031] Kathleenfloyd Zuniga KYLAH APPIAH [facility] CPT-4: 99925 06/17/2018 ([id number]) OFFICE/OUTPATIENT VISIT EST Diagnosis: Migraine without aura, intractable, without status migrainosus[ICD10: G43.019] Diagnosis: Zoster without complications[ICD10: B02.9] Kathleen APPIAH DO [facility] CPT-4: 92168 05/16/2018 ([id number]) OFFICE/OUTPATIENT VISIT EST Diagnosis: Cellulitis of right lower limb[ICD10: L03.115] Kathleen APPIAH [facility] CPT-4: 99510 03/20/2018 ([id number]) OFFICE/OUTPATIENT VISIT EST Diagnosis: Cellulitis of right lower limb[ICD10: L03.115] Kathleen APPIAH [facility] CPT-4: 29812 03/18/2018 ([id number]) OFFICE/OUTPATIENT VISIT EST Diagnosis: Cellulitis of right lower limb[ICD10: L03.115] aKthleen APPIAH DO [facility] CPT-4: 19120 03/15/2018 ([id number]) OFFICE/OUTPATIENT VISIT EST Diagnosis: Acute sinusitis, 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: J01.90] Kathleen APPIAH DO [facility] CPT-4: 26380 02/11/2018 ([id number]) NURSE/OUTPATIENT VISIT EST Diagnosis: Otitis media, unspecified, right ear[ICD10: H66.91] María Elena APPIAH DO [facility] CPT-4: 32389 02/01/2018 ([id number]) OFFICE/OUTPATIENT VISIT EST Diagnosis: Acute suppurative otitis media without spontaneous rupture of ear drum, left ear[ICD10: H66.002] Diagnosis: Abnormal weight gain[ICD10: R63.5] Diagnosis: Intervertebral disc disorders with radiculopathy, 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] Kathleen APPIAH DO [facility] CPT-4: 99 214 01/30/2018 ([id number]) PREV VISIT EST AGE 40-64 Diagnosis: Encounter for general adult medical examination without abnormal findings[ICD10: Z00.00] Diagnosis: Essential (primary) hypertension[ICD10: I10] Diagnosis: Mixed hyperlipidemia[ICD10: E78.2] Diagnosis: Type 2 diabetes mellitus with hyperglycemia[ICD10: E11.65] Diagnosis: 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] María Elena APPIAH DO [facility] CPT-4: 08283 12/18/2017 ([id number]) OFFICE/OUTPATIENT VISIT EST Diagnosis: Cellulitis of right toe[ICD10: L03.031] Diagnosis: Mixed hyperlipidemia[ICD10: E78.2] Diagnosis: Essential (primary) hypertension[ICD10: I10] Diagnosis: Hyperglycemia, 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: R73.9] Diagnosis: Nontoxic goiter, 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] María Elena APPIAH [facility] CPT-4: 49104 12/10/2017 ([id number]) OFFICE/OUTPATIENT VISIT EST Diagnosis: Cellulitis of right toe[ICD10: L03.031] Diagnosis: Acute sinusitis, 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: J01.90] Kathleen APPIAH DO [facility] CPT-4: 01225 12/07/2017 OFFICE/OUTPATIENT VISIT EST Diagnosis: Acute maxillary sinusitis, 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: J01.00] Kathleen APPIAH DO [facility] CPT-4: 71904 10/08/2017 ([id number]) OFFICE/OUTPATIENT VISIT EST Diagnosis: Cellulitis of left toe[ICD10: L03.032] [facility] 99117 09/21/2017 ([id number]) OFFICE/OUTPATIENT VISIT EST Diagnosis: Insomnia, 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: G47.00] Diagnosis: Major depressive disorder, single episode, 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: F32.9] Diagnosis: Anxiety disorder, 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: F41.9] Diagnosis: Cellulitis of left toe[ICD10: L03.032] Diagnosis: Snoring[ICD10: R06.83] Kathleen APPIAH DO [facility] CPT-4: 66026 09/20/2017 ([id number]) OFFICE/OUTPATIENT VISIT EST Diagnosis: Cellulitis of left toe[ICD10: L03.032] María Elena APPIAH [facility] CPT-4: 19263 07/19/2017 OFFICE/OUTPATIENT VISIT EST Diagnosis: Chronic sinusitis, 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: J32.9] Diagnosis: Generalized hyperhidrosis[ICD10: R61] Kathleen APPIAH DO [facility] CPT-4: 09634 06/27/2017 ([id number]) OFFICE/OUTPATIENT VISIT EST Diagnosis: Intervertebral disc disorders with radiculopathy, 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] Diagnosis: Primary insomnia[ICD10: F51.01] Diagnosis: Other fatigue[ICD10: R53.83] María Elena ValdesJj IGNACIO GARIBAY [facility] CPT-4: 44562 04/10/2017 ([id number]) OFFICE/OUTPATIENT VISIT EST Diagnosis: Primary insomnia[ICD10: F51.01] Diagnosis: Localized edema[ICD10: R60.0] Diagnosis: 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] María Elena APPIAH [facility] CPT-4: 08257 12/13/2016 ([id number]) OFFICE/OUTPATIENT VISIT EST Diagnosis: Primary insomnia[ICD10: F51.01] Diagnosis: Cyanosis[ICD10: R23.0] María Elena Waydawn MARÍA ELENA LucioJj [facility]O [facility] CPT-4: 68609 11/01/2016 ([id number]) PREV VISIT EST AGE 40-64 Diagnosis: Encounter for gynecological examination (general) (routine) without abnormal findings[ICD10: Z01.419] Diagnosis: Encounter for routine child health examination without abnormal findings[ICD10: Z00.129] María Elena Wayyesimaryjane ELLISMARÍA ELENA LucioJj IGNACIO [facility] CPT-4: 67186 10/17/2016 ([id number]) OFFICE/OUTPATIENT VISIT EST Diagnosis: Other seasonal allergic rhinitis[ICD10: J30.2] María Elena Waltdawn MARÍA ELENA LucioJj IGNACIO GARIBAY [facility] CPT-4: 14479 10/10/2016 ([id number]) OFFICE/OUTPATIENT VISIT EST Diagnosis: Pain in left arm[ICD10: M79.602] Diagnosis: Contact with and (suspected) exposure to potentially hazardous body fluids[ICD10: Z77.21] Diagnosis: 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, 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] Diagnosis: Unspecified open wound, right foot, sequela[ICD10: S91.301S] María Elena APPIAH [facility] CPT-4: 83716 09/19/2016 ([id number]) OFFICE/OUTPATIENT VISIT EST Diagnosis: Chronic sinusitis, 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: J32.9] Diagnosis: Allergic rhinitis due to pollen[ICD10: J30.1] María Elena APPIAH [facility] CPT-4: 88877 08/24/2016 ([id number]) OFFICE/OUTPATIENT VISIT EST Diagnosis: Acute bronchitis, 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: J20.9] María Elena APPIAH [facility] CPT-4: 84170 08/16/2016 ([id number]) OFFICE/OUTPATIENT VISIT EST Diagnosis: Otitis media, unspecified, right ear[ICD10: H66.91] Diagnosis: Acute bronchitis, 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: J20.9] María Elena APPIAH [facility] CPT-4: 64291 08/10/2016 ([id number]) OFFICE/OUTPATIENT VISIT EST Diagnosis: Acute recurrent sinusitis, 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: J01.91] Diagnosis: Allergic rhinitis due to pollen[ICD10: J30.1] María Elena APPIAH [facility] CPT-4: 52353 08/02/2016 ([id number]) OFFICE/OUTPATIENT VISIT EST Diagnosis: Pain in unspecified joint[ICD10: M25.50] María Elena APPIAH [facility] CPT-4: 35712 07/27/2016 OFFICE/OUTPATIENT VISIT EST Diagnosis: 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] Diagnosis: Acute recurrent sinusitis, 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: J01.91] Diagnosis: Other fatigue[ICD10: R53.83] Diagnosis: Primary insomnia[ICD10: F51.01] Diagnosis: Pain in unspecified joint[ICD10: M25.50] María Elena APPIAH [facility] CPT-4: 86150 07/20/2016 ([id number]) OFFICE/OUTPATIENT VISIT EST Diagnosis: Blister (nonthermal), left great toe, initial encounter[ICD10: S90.422A] Loan APPIAH [facility] CPT-4: 69408 ([id number]) OFFICE/OUTPATIENT VISIT EST Diagnosis: Acute recurrent sinusitis, 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: J01.91] María Elena APPIAH [facility] CPT-4: 40329 05/25/2016 ([id number]) OFFICE/OUTPATIENT VISIT EST Diagnosis: Acute sinusitis, 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: J01.90] María Elena APPIAH [facility] CPT-4: 03611 04/26/2016 ([id number]) OFFICE/OUTPATIENT VISIT EST Diagnosis: Flushing[ICD10: R23.2] Diagnosis: Primary insomnia[ICD10: F51.01] María Elena APPIAH [facility] CPT-4: 39097 03/02/2016 ([id number]) OFFICE/OUTPATIENT VISIT EST Diagnosis: Other seasonal allergic rhinitis[ICD10: J30.2] Loan APPIAH [facility] CPT-4: 11190 02/09/2016 ([id number]) OFFICE/OUTPATIENT VISIT EST Diagnosis: Primary insomnia[ICD10: F51.01] Diagnosis: Urinary tract infection, site not specified[ICD10: N39.0] María Elena APPIAH [facility] CPT-4: 23630 01/24/2016 ([id number]) OFFICE/OUTPATIENT VISIT EST Diagnosis: Other specified disorders of Eustachian tube, bilateral[ICD10: H69.83] Diagnosis: Allergic rhinitis, 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: J30.9] Loan APPIAH [facility] CPT-4: 82361 12/23/2015 ([id number]) OFFICE/OUTPATIENT VISIT EST Diagnosis: Acute recurrent sinusitis, 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: J01.91] Diagnosis: 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] Diagnosis: Allergic rhinitis, 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: J30.9] María Elena APPIAH DO [facility] CPT-4: 98595 12/08/2015 ([id number]) OFFICE/OUTPATIENT VISIT EST Diagnosis: Allergic rhinitis, 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: J30.9] Diagnosis: Pain in unspecified joint[ICD10: M25.50] María Elena APPIAH DO [facility] CPT-4: 32128 10/07/2015 ([id number]) OFFICE/OUTPATIENT VISIT EST Diagnosis: Essential (primary) hypertension[ICD10: I10] María Elena APPIAH DO [facility] CPT-4: 20631 10/06/2015 OFFICE/OUTPATIENT VISIT EST Diagnosis: Localized enlarged lymph nodes[ICD10: R59.0] Diagnosis: Local infection of the skin and subcutaneous tissue, 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: L08.9] June Felixdaniella APPIAH DO [facility] CPT- 4: 87315 09/14/2015 ([id number]) OFFICE/OUTPATIENT VISIT EST Diagnosis: Essential (primary) hypertension[ICD10: I10] Diagnosis: Actinic keratosis[ICD10: L57.0] María Elena APPIAH DO [facility] CPT-4: 84857 09/07/2015 ([id number]) OFFICE/OUTPATIENT VISIT EST Diagnosis: Essential (primary) hypertension[ICD10: I10] Diagnosis: Acute stress reaction[ICD10: F43.0] María Elena APPIAH [facility] CPT-4: 94661 08/18/2015 ([id number]) OFFICE/OUTPATIENT VISIT EST Diagnosis: Essential (primary) hypertension[ICD10: I10] María Elena APPIAH DO [facility] CPT-4: 73415 07/07/2015 ([id number]) OFFICE/OUTPATIENT VISIT EST Diagnosis: Essential (primary) hypertension[ICD10: I10] María Elena APPIAH DO [facility] CPT-4: 70739 06/24/2015 ([id number]) OFFICE/OUTPATIENT VISIT EST Diagnosis: Essential (primary) hypertension[ICD10: I10] María Elena APPIAH DO [facility] CPT-4: 30331 06/21/2015 ([id number]) OFFICE/OUTPATIENT VISIT EST Diagnosis: Essential (primary) hypertension[ICD10: I10] Diagnosis: Mixed hyperlipidemia[ICD10: E78.2] Diagnosis: Acute stress reaction[ICD10: F43.0] Diagnosis: Primary insomnia[ICD10: F51.01] María Elena APPIAH [facility] CPT-4: 22654 06/16/2015 ([id number]) OFFICE/OUTPATIENT VISIT EST Diagnosis: INSOMNIA NOS[ICD9: 780.52] Diagnosis: HYPERTENSION[ICD9: 401.9] Diagnosis: Stress reaction[ICD9: 308.9] María Elena APPIAH [facility] CPT-4: 86357 06/02/2015 ([id number]) OFFICE/OUTPATIENT VISIT EST Diagnosis: HYPERTENSION[ICD9: 401.9] Diagnosis: Stress reaction[ICD9: 308.9] María Elena APPIAH [facility] CPT-4: 65450 05/20/2015 ([id number]) OFFICE/OUTPATIENT VISIT EST Diagnosis: Skin lesion[ICD9: 709.9] 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] María Elena APPIAH [facility] CPT-4: 32352 05/10/2015 ([id number]) OFFICE/OUTPATIENT VISIT EST Diagnosis: SINUSITIS, ACUTE[ICD9: 461.9] Diagnosis: ALLERGIC RHINITIS[ICD9: 477.9] Diagnosis: DERMATITIS NOS[ICD9: 692.9] María Elena REHMAN [facility] CPT-4: 67011 03/16/2015 OFFICE/OUTPATIENT VISIT EST Diagnosis: Otitis media[ICD9: 382.9] Diagnosis: SINUSITIS, ACUTE[ICD9: 461.9] June Flores MARÍA ELENA APPIAH [facility] CPT-4: 38479 09/11/2014 ([id number]) OFFICE/OUTPATIENT VISIT EST Diagnosis: HYPERLIPIDEMIA NEC/NOS[ICD9: 272.4] María Elena APPIAH DO [facility] CPT-4: 02335 08/31/2014 ([id number]) OFFICE/OUTPATIENT VISIT EST Diagnosis: - I - HYPERTENSION[ICD9: 401.9] Diagnosis: HYPERLIPIDEMIA NEC/NOS[ICD9: 272.4] María Elena APPIAH DO [facility] CPT-4: 20843 08/27/2014 ([id number]) OFFICE/OUTPATIENT VISIT EST Diagnosis: ABDOMINAL PAIN[ICD9: 789.00] Diagnosis: DYSPEPSIA[ICD9: 536.8] Diagnosis: Thoracic back pain[ICD9: 724.1] María Elena APPIAH DO [facility] CPT-4: 80237 07/21/2014 ([id number]) OFFICE/OUTPATIENT VISIT EST Diagnosis: ALLERGIC RHINITIS[ICD9: 477.9] María Elena APPIAH DO [facility] CPT-4: 45496 07/15/2014 ([id number]) OFFICE/OUTPATIENT VISIT EST Diagnosis: EDEMA[ICD9: 782.3] Diagnosis: Chronic insomnia[ICD9: 780.52] María Elena APPIAH [facility] CPT-4: 47345 05/18/2014 ([id number]) OFFICE/OUTPATIENT VISIT EST Diagnosis: Thyromegaly[ICD9: 240.9] Diagnosis: - I - HYPERTENSION[ICD9: 401.9] Diagnosis: ROUTINE MEDICAL EXAM[ICD9: V70.0] Diagnosis: EDEMA[ICD9: 782.3] María Elena APPIAH DO [facility] CPT-4: 72120 05/14/2014 OFFICE/OUTPATIENT VISIT EST Diagnosis: BRONCHITIS, ACUTE[ICD9: 466.0] Diagnosis: SINUSITIS, ACUTE[ICD9: 461.9] María Elena APPIAH DO [facility] CPT-4: 96733 04/21/2014 OFFICE/OUTPATIENT VISIT EST Diagnosis: SINUSITIS, ACUTE[ICD9: 461.9] June Sandra MARÍA ELENA APPIAH [facility] CPT-4: 90280 03/04/2014 ([id number]) OFFICE/OUTPATIENT VISIT EST Diagnosis: VACCINE FOR TDAP[ICD10: Z23] María Elena APPIAH [facility] CPT-4: 96464 02/27/2014 ([id number]) OFFICE/OUTPATIENT VISIT EST Diagnosis: Seborrheic keratoses, inflamed[ICD9: 702.11] Diagnosis: ACTINIC KERATOSIS[ICD9: 702.0] Diagnosis: INSOMNIA NOS[ICD9: 780.52] María Elena PANDYA [facility] CPT-4: 36680 01/13/2014 OFFICE/OUTPATIENT VISIT EST 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] Diagnosis: ALLERGIC RHINITIS[ICD9: 477.9] Diagnosis: Serous otitis media[ICD9: 381.4] María Elena APPIAH [facility] CPT-4: 72845 12/24/2013 ([id number]) OFFICE/OUTPATIENT VISIT EST Diagnosis: SINUSITIS, ACUTE[ICD9: 461.9] Diagnosis: ALLERGIC RHINITIS[ICD9: 477.9] 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] María Elena APPIAH [facility] CPT-4: 59966 11/12/2013 ([id number]) OFFICE/OUTPATIENT VISIT EST Diagnosis: ALLERGIC RHINITIS[ICD9: 477.9] Diagnosis: SINUSITIS, ACUTE[ICD9: 461.9] María Elena APPIAH [facility] CPT-4: 02478 10/21/2013 ([id number]) OFFICE/OUTPATIENT VISIT EST Diagnosis: ASYMPTOMATIC VARICOSE VEINS[ICD9: 454.9] Diagnosis: INSOMNIA NOS[ICD9: 780.52] María Elena PANDYA [facility] CPT-4: 68071 09/22/2013 OFFICE/OUTPATIENT VISIT EST Diagnosis: SINUSITIS, ACUTE[ICD9: 461.9] June Flores MARÍA ELENA APPIAH [facility] CPT-4: 22518 08/27/2013 ([id number]) OFFICE/OUTPATIENT VISIT EST Diagnosis: CEPHALGIA[ICD9: 784.0] Diagnosis: CEPHALGIA, TENSION[ICD9: 307.81] 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] María Elena APPIAH DO [facility] CPT-4: 16713 08/04/2013 ([id number]) OFFICE/OUTPATIENT VISIT EST Diagnosis: Cervicalgia[ICD9: 723.1] Diagnosis: SPASM OF MUSCLE[ICD9: 728.85] Diagnosis: CEPHALGIA, TENSION[ICD9: 307.81] María Elena APPIAH DO [facility] CPT-4: 81046 07/23/2013 ([id number]) OFFICE/OUTPATIENT VISIT EST 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] Diagnosis: ALLERGIC RHINITIS[ICD9: 477.9] María Elena APPIAH DO [facility] CPT-4: 90057 06/23/2013 ([id number]) OFFICE/OUTPATIENT VISIT EST Diagnosis: ALLERGIC RHINITIS[ICD9: 477.9] Diagnosis: ACUTE SEROUS OTITIS MEDIA[ICD9: 381.01] 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] María Elena APPIAH [facility] CPT-4: 06592 05/26/2013 ([id number]) OFFICE/OUTPATIENT VISIT EST Diagnosis: HYPERTENSION[ICD9: 401.9] Diagnosis: EDEMA[ICD9: 782.3] Diagnosis: Serous otitis media[ICD9: 381.4] María Elena APPIAH [facility] CPT-4: 94881 04/16/2013 ([id number]) OFFICE/OUTPATIENT VISIT EST Diagnosis: SINUSITIS, ACUTE[ICD9: 461.9] Diagnosis: ALLERGIC RHINITIS[ICD9: 477.9] Diagnosis: EDEMA[ICD9: 782.3] Diagnosis: Thyromegaly[ICD9: 240.9] Diagnosis: MALAISE AND FATIGUE[ICD9: 780.79] María Elena APPIAH [facility] CPT-4: 81900 03/05/2013 ([id number]) OFFICE/OUTPATIENT VISIT EST Diagnosis: PAIN, LOWER BACK[ICD9: 724.2] Diagnosis: SPASM OF MUSCLE[ICD9: 728.85] María Elena JUARES LucioJj IGNACIO GARIBAY [facility] CPT-4: 52975 12/23/2012 OFFICE/OUTPATIENT VISIT EST Diagnosis: Low back pain[ICD9: 724.2] Lashawn Hicks KRISTYN PANDYA [facility] CPT-4: 27626 12/16/2012 ([id number]) OFFICE/OUTPATIENT VISIT EST Diagnosis: PAIN, LOWER BACK[ICD9: 724.2] Diagnosis: SCIATICA[ICD9: 724.3] Diagnosis: Lumbar herniated disc[ICD9: 722.10] María Elena COLON LucioJj IGNACIO GARIBAY [facility] CPT-4: 59521 12/09/2012 ([id number]) OFFICE/OUTPATIENT VISIT EST Diagnosis: PAIN, LOWER BACK[ICD9: 724.2] Diagnosis: SCIATICA[ICD9: 724.3] Diagnosis: LUMBAR DISC DISPLACEMENT[ICD9: 722.10] María Elena MARIN LucioJj IGNACIO GARIBAY [facility] CPT-4: 50209 12/04/2012 OFFICE/OUTPATIENT VISIT EST Diagnosis: Pneumonia[ICD9: 486] Mary JUARES LucioJj IGNACIO GARIBAY [facility] CPT-4: 17214 11/22/2012 ([id number]) OFFICE/OUTPATIENT VISIT EST Diagnosis: PNEUMONIA, ORGANISM[ICD9: 486] Diagnosis: Exacerbation of RAD (reactive airway disease)[ICD9: 493.92] María Elena JUARES LucioJj IGNACIO GARIBAY [facility] CPT-4: 38900 11/21/2012 OFFICE/OUTPATIENT VISIT EST Diagnosis: HYPERTENSION[ICD9: 401.9] Diagnosis: Cephalgia[ICD9: 784.0] Lashawn Hicks IGNACIO GARIBAY [facility] CPT-4: 47485 10/29/2012 ([id number]) OFFICE/OUTPATIENT VISIT EST Diagnosis: MALAISE AND FATIGUE[ICD9: 780.79] Diagnosis: ARTHRALGIA-MULTIPLE SITES[ICD9: 719.49] María Elena REED LucioJj IGNACIO GARIBAY [facility] CPT-4: 19510 10/14/2012 ([id number]) OFFICE/OUTPATIENT VISIT EST Diagnosis: URINARY FREQUENCY[ICD9: 788.41] María Elena APPIAH [facility] CPT-4: 75776 09/27/2012 ([id number]) OFFICE/OUTPATIENT VISIT EST Diagnosis: MALAISE AND FATIGUE[ICD9: 780.79] Diagnosis: ARTHRALGIA-MULTIPLE SITES[ICD9: 719.49] María Elena WAYNDER [facility] CPT-4: 04843 09/25/2012 ([id number]) OFFICE/OUTPATIENT VISIT EST Diagnosis: SINUSITIS, ACUTE[ICD9: 461.9] 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] María Elena APPIAH [facility] CPT-4: 31197 08/29/2012 OFFICE/OUTPATIENT VISIT EST Diagnosis: ACTINIC KERATOSIS[ICD9: 702.0] Diagnosis: Inflamed seborrheic keratosis[ICD9: 702.11] Diagnosis: Skin cancer of face[ICD9: 173.31] Diagnosis: HYPERTENSION[ICD9: 401.9] María Elena WAY NDERose Mary [facility] CPT-4: 35971 08/12/2012 ([id number]) OFFICE/OUTPATIENT VISIT EST Diagnosis: ARTHRALGIA-MULTIPLE SITES[ICD9: 719.49] Diagnosis: GOUT[ICD9: 274.9] Diagnosis: HYPERTENSION[ICD9: 401.9] Diagnosis: Tachycardia[ICD9: 785.0] María Elena ValdesJj FRITZ KARLOS [facility] CPT-4: 23347 05/06/2012 ([id number]) OFFICE/OUTPATIENT VISIT EST Diagnosis: INSOMNIA NOS[ICD9: 780.52] María Elena SIMONS MUMTAZ [facility] CPT-4: 22161 04/03/2012 ([id number]) OFFICE/OUTPATIENT VISIT EST Diagnosis: INSOMNIA NOS[ICD9: 780.52] Diagnosis: HYPERTENSION[ICD9: 401.9] Diagnosis: MIGRAINE NOS/NOT INTRCBL[ICD9: 346.90] María Elena MONTEROLui MARIN Fabiola WAYNDER [facility] CPT-4: 61592 03/19/2012 ([id number]) OFFICE/OUTPATIENT VISIT EST Diagnosis: CELLULITIS[ICD9: 682.9] Diagnosis: Ankle pain[ICD9: 719.47] Diagnosis: HYPERTENSION[ICD9: 401.9] María Elena JUARES LucioJj WALT MOJICARose Mary [facility] CPT-4: 76954 02/20/2012 ([id number]) OFFICE/OUTPATIENT VISIT EST Diagnosis: MIGRAINE NOS/NOT INTRCBL[ICD9: 346.90] Diagnosis: Vomiting[ICD9: 787.03] María Elena Hicks WALTGALINA Bazzi [facility] CPT-4: 55857 01/30/2012 ([id number]) OFFICE/OUTPATIENT VISIT EST Diagnosis: EDEMA[ICD9: 782.3] Diagnosis: HYPERTENSION[ICD9: 401.9] Diagnosis: ALLERGIC RHINITIS[ICD9: 477.9] Diagnosis: ARTHRALGIA-MULTIPLE SITES[ICD9: 719.49] María Elena Hicks WALTDAWN [facility] CPT-4: 84523 01/24/2012 ([id number]) OFFICE/OUTPATIENT VISIT EST Diagnosis: SPASM OF MUSCLE[ICD9: 728.85] Diagnosis: Thoracic back pain[ICD9: 724.1] Diagnosis: Cervical pain[ICD9: 723.1] María Elena Hicks KRISTYN MUMTAZ [facility] CPT-4: 53745 01/10/2012 OFFICE/OUTPATIENT VISIT EST Diagnosis: PAIN, LOWER BACK[ICD9: 724.2] Diagnosis: LUMBAR DISC DISPLACEMENT[ICD9: 722.10] María Elena Hicks W[place]WN [facility] CPT-4: 02161 12/11/2011 OFFICE/OUTPATIENT VISIT EST Diagnosis: MIGRAINE NOS/NOT INTRCBL[ICD9: 346.90] Diagnosis: SINUSITIS, ACUTE[ICD9: 461.9] María Elena Hicks W[place]DAWN [facility] CPT-4: 77074 11/09/2011 OFFICE/OUTPATIENT VISIT EST Diagnosis: MIGRAINE NOS/NOT INTRCBL[ICD9: 346.90] Diagnosis: LYMPHADENOPATHY[ICD9: 785.6] [facility] 45422 09/13/2011 OFFICE/OUTPATIENT VISIT EST Diagnosis: MALAISE AND FATIGUE[ICD9: 780.79] Diagnosis: ARTHRALGIA-MULTIPLE SITES[ICD9: 719.49] María Elena ValdesJj IGNACIO GARIBAY [facility] CPT-4: 39918 08/31/2011 OFFICE/OUTPATIENT VISIT EST Diagnosis: SINUSITIS, ACUTE[ICD9: 461.9] María Elena APPIAH DO [facility] CPT-4: 12556 07/20/2011 OFFICE/OUTPATIENT VISIT EST Diagnosis: HYPERTENSION[ICD9: 401.9] Diagnosis: PAIN, LOWER BACK[ICD9: 724.2] Diagnosis: SPASM OF MUSCLE[ICD9: 728.85] María Elena APPIAH DO [facility] CPT-4: 32867 07/06/2011 OFFICE/OUTPATIENT VISIT EST Diagnosis: MIGRAINE NOS/NOT INTRCBL[ICD9: 346.90] Diagnosis: HYPERTENSION[ICD9: 401.9] María Elena SEYMOUR [facility] CPT-4: 44039 05/22/2011 OFFICE/OUTPATIENT VISIT EST Diagnosis: SINUSITIS, ACUTE[ICD9: 461.9] Diagnosis: MIGRAINE NOS/NOT INTRCBL[ICD9: 346.90] Diagnosis: Dehydration[ICD9: 276.51] Diagnosis: Vomiting[ICD9: 787.03] María Elena Waltyesimaryjane MARÍA ELENA LucioJj CIRO Bazzi [facility] CPT-4: 72665 05/09/2011 ([id number]) OFFICE/OUTPATIENT VISIT EST María Elena Ortamaryjane MARLIN UJARED SJj WALTNDER DO [facility] CPT-4: 57787 02/14/2011 ([id number]) OFFICE/OUTPATIENT VISIT EST María Elena Waltyesimaryjane MARLIN UJARED SJj ORENDER DO [facility] CPT-4: 13979 02/03/2011 ([id number]) OFFICE/OUTPATIENT VISIT EST María Elena ISAAC UJARED SJj ORENDER DO [facility] CPT-4: 75377 01/31/2011 ([id number]) OFFICE/OUTPATIENT VISIT EST María Elena ISAAC TANIA SJj WALTNDER DO [facility] CPT-4: 08522 01/25/2011 ([id number]) OFFICE/OUTPATIENT VISIT EST María Elena ISAAC [facility]ED [facility] CPT-4: 49395 01/18/2011 ([id number]) OFFICE/OUTPATIENT VISIT EST María Elena MARIN SJj [facility] CPT-4: 21736 11/29/2010 ([id number]) OFFICE/OUTPATIENT VISIT, EST María Elena REED [facility] CPT-4: 48903 10/10/2010 ([id number]) OFFICE/OUTPATIENT VISIT, EST María Elena [facility] CPT-4: 84404 06/07/2010 ([id number]) OFFICE/OUTPATIENT VISIT, EST María Elena [facility] CPT-4: 47873 04/27/2010 ([id number]) OFFICE/OUTPATIENT VISIT, EST María Elena REED [facility] CPT-4: 77980 04/05/2010 ([id number]) OFFICE/OUTPATIENT VISIT, EST María Elena [facility] CPT-4: 69236 03/09/2010 ([id number]) OFFICE/OUTPATIENT VISIT, EST María Elena [facility] CPT-4: 39391 03/03/2010 ([id number]) OFFICE/OUTPATIENT VISIT, EST María Elena REED [facility] CPT-4: 78157 01/17/2010 ([id number]) PREV VISIT, EST, AGE 40-64 María Elena COLEMAN [facility]. [facility] CPT-4: 74418 12/27/2009 Plan of Care Planned Activity Notes Codes Status Date Visit Diagnosis Plan: Cellulitis of left foot Discussi on: Doxycycline and Prednisone Continue lasix and potassium Elevate legs Low Na diet To ER this weekend if worsens ICD-9 : 682.7 ICD-10 : L03.116 03/04/2020 Patient Education: doxycycline hyclate- [employer] [id number] Completed 03/04/2020 Patient Education: prednisone- [employer] [id number] Completed 03/04/2020 Visit Diagnosis Plan: Lower extremity [...] : S90.821A 02/12/2020 Appointment: Kathleen Zuniga [address] [place] [address] ACUTE ILLNESS 02/12/2020 Visit Diagnosis Plan: Essential [...] E11.65 01/13/2020 Appointment: María Elena Appiah WPtel: [address] [place], [place] [phone] US FOLLOW UP 01/13/2020 Patient Education: lisinopril- [employer]on [id number] Completed 01/13/2020 Patient Education: glimepiride- [employer] [id number] Completed 01/13/2020 Appointment: María Elena Appiah WPtel: [facility] US CANCELED 11/26/2019 Visit Diagnosis Plan: Type 2 diabetes mellitus with hy perglycemia Discussion: Januvia 100mg daily Glimepride 2mg po BID Accuchecks BID Call in 2 weeks with BS readings Get formulary book ICD-9 : 250.02 ICD-10 : E11.65 11/20/2019 Appointment: María Elena Appiah WPtel: [phone] [id number] FOLLOW UP 11/20/2019 Patient Education: glimepiride- [employer]on [id number] Completed 11/20/2019 Patient Education: Januvia- [employer] [id number] Completed 11/20/2019 Visit Diagnosis Plan: Ingrowing nail [...] ICD-10 : E11.65 10/07/2019 Appointment: Kathleen Zuniga [address] [place], [place] [id number] OFFICE SURGERY 10/07/2019 Visit Diagnosis Plan: Hypertriglyceridemia [...] E11.65 09/30/2019 Appointment: María Elena Appiah WPtel: [address] [place], [place] [phone] [place] CHECK UP 09/30/2019 Patient Education: Premarin- [employer] C[employer]on [id number] https://www.[employer]/resources/getResource/61/[email or web address]-[email or web address]-l9 Completed 09/30/2019 Appointment: María Elena Appiah WPtel: [address] [place], [place] [phone] [place] LAB 09/29/2019 Appointment: María Elena Appiah WPtel: [address] [place], [place] [phone] [place] Won't have the new insurance till [...] W06.XXXS 05/28/2019 Appointment: María Elena Appiah WPtel: [address] [place], [place] [phone] [place] FOLLOW UP 05/28/2019 Appointment: María Elena Appiah WPtel: [address] [place], [place] [phone] [place] BP CHECK 05/19/2019 Visit Diagnosis Plan: [...] Z79.890 01/22/2019 Appointment: María Elena Appiah WPtel: [address] [place], [place] [id number] [place] FOLLOW UP 01/22/2019 Patient Education: estradiol- [employer] Coupon [id number] https://www.[employer]/resources/getResource/61/793k146w-1yy9-2w29-3k Completed 01/22/2019 Appointment: María Elena Appiah WPtel: [address] [place], [place] [phone] [place] CANCELED 01/20/2019 Appointment: María Elena Appiah WPtel: [address] [place] [address] [place] LM NO SHOW 01/06/2019 Appointment: María Elena Appiah WPtel: [address] [place], [place] [phone] [place] CANCELED 10/17/2018 Appointment: María Elena Appiah WPtel: [address] [place], [place] [phone] [place] BP CHECK 10/09/2018 Visit Diagnosis Plan: [...] I10 09/30/2018 Appointment: María Elena Appiah WPtel: [address] [place] [address] [place] FOLLOW UP 09/30/2018 Visit Diagnosis Plan: [...] F51.01 08/27/2018 Appointment: María Elena Appiah WPtel: [address] [place] [address] ACUTE ILLNESS 08/27/2018 Appointment: María Elena Appiah WPtel: [address] [place] [address] [place] Patient stated she went out to [...] prn. Tyle... 08/09/2018 Appointment: María Elena Appiahtel: [address] [place] [address] [place] ACUTE ILLNESS 08/09/2018 Appointment: María Elena Appiah WPtel: [address] [place] [address] NO SHOW 08/08/2018 Visit Diagnosis Plan: Anxiety [...] B35.4 07/22/2018 Appointment: María Elena Appiah WPtel: [address] [place] [address] ACUTE ILLNESS 07/22/2018 Appointment: María Elena Appiah WPtel: [address] [place] [address] [place] INJECTION 06/19/2018 Patient Education: Patient Medication [...] : L03.031 06/17/2018 Appointment: Kathleen Zuniga [address] [place] [address] ACUTE ILLNESS 06/17/2018 Patient Education: Patient Medication [...] : B02.9 05/16/2018 Appointment: Kathleen Zuniga [address] [place] [address] ACUTE ILLNESS 05/16/2018 Patient Education: Patient Medication [...] ICD-10 : L03.115 03/20/2018 Appointment: Kathleen Zuniga [address] [place], [place] [address] FOLLOW UP 03/20/2018 Patient Education: Patient Medication [...] ICD-10 : L03.115 03/18/2018 Appointment: Kathleen Zuniga [address] [place], [place] [id number] FOLLOW UP 03/18/2018 Patient Education: Patient Medication [...] : L03.115 03/15/2018 Appointment: Kathleen Zuniga [address] [place] [address] ACUTE ILLNESS 03/15/2018 Patient Education: Patient Medication [...] : J01.90 02/11/2018 Appointment: Kathleen Zuniga [address] [place] [address] ACUTE ILLNESS 02/11/2018 Patient Education: Patient Medication Summary Completed 02/11/2018 Appointment: María Elena Appiah WPtel: [phone] [id number] INJECTION 02/01/2018 Patient Education: Patient Medication Summary [...] : M51.16 01/30/2018 Appointment: Kathleen Zuniga [address] [place] [address] ACUTE ILLNESS 01/30/2018 Patient Education: Patient Medication [...] E11.65 12/18/2017 Appointment: María Elena Appiah WPtel: [address] [place] [address] Annual Well Visit 12/18/2017 Patient Education: Patient Medication Summary Completed 12/18/2017 Care Plan: Referral Order SNOMED-CT : [id number] Pending 12/18/2017 Appointment: María Elena Appiah WPtel: [address] [place] [address] INJECTION 12/10/2017 Patient Education: Patient Medication Summary [...] : L03.031 12/07/2017 Appointment: Kathleen Zuniga [address] [place] [address] ACUTE ILLNESS 12/07/2017 Patient Education: Patient Medication [...] : J01.00 10/08/2017 Appointment: Kathleen Zuniga [address] [place] [address] ACUTE ILLNESS 10/08/2017 Patient Education: Patient Medication Summary Completed 10/08/2017 Appointment: María Elena Appiah WPtel: [address] [facility] [place] INJECTION 09/21/2017 Patient Education: Patient Medication [...] Appointment: María Elena [facility]iah [facility]Ptel[facility] [address] [facility] [facility] 08/01/2017 Patient Education: Patient Medication Summary Completed 08/01/2017 Appointment: María Elena Appiah WPtel: [address] [place], [place] [phone] PATIENT THOUGHT APPOINTMENT WAS TOMORROW 07/26/17 CALLED 15 MINUTES BEFORE APPT TO SAY SHE DIDN'T HAVE ANYONE TO COVER HER BUSINESS AND WOULD NOT MAKE IT NO SHOW 07/25/2017 Visit Diagnosis Plan: Cellulitis of left toe Discussio n: Clindamycin and notify if worsening or persistis ICD-9 : 681.10 ICD-10 : L03.032 07/19/2017 Appointment: María Elena Appiah WPtel: [address] [place], [place] [phone] MEDICATION REVIEW 07/19/2017 Patient Education: Patient Medication Summary Completed 07/19/2017 Appointment: María Elena Appiah WPtel: [facility] [place] CANCELED 07/04/2017 Visit Diagnosis Plan: Generalized hyperhidrosis Discus ian: CBC, CMP, TSH, free T4 ordered to assess. will review labs. ICD-9 : 780.8 ICD-10 : R61 06/27/2017 Visit Diagnosis Plan: Chronic sinusitis, unspecified D iscussion: Referral sent to dr. albarado in [place] per patient request. patient has been treated multiple times for sinus infections with no recovery. patient was seen by dr sanchez in the past with no interventions. patient has deviated septum which may be affecting her sinuses. 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, including hip Discussion: Shave removal of above lesio n--sent to pathology ICD-9 : 216.7 ICD-10 : D23.72 01/24/2017 Appointment: María Elena Appiah WPtel: [address] [place], [place] [phone] 01/23 confirmed ~ OFFICE SURGERY 01/24/2017 Patient Education: Patient Medication Summary Completed 01/24/2017 Appointment: Loan Sánchez [address] [place] [address] 01/09 rescheduled~sl RESCHEDULED 01/15/2017 Visit Diagnosis Plan: [...] L81.4 12/13/2016 Appointment: María Elena Appiah WPtel: [address] [place], [place] [phone] 12/12 confirmed ~sl MEDICATION REVIEW 12/13/2016 Patient Education: Patient Medication Summary Completed 12/13/2016 Appointment: María Elena Appiah WPtel: [address] [place], [place] [phone] [place] rescheduled for 12/13/16 at 11am RESCHEDULED 0 12/06/2016 Appointment: María Elena Appiah WPtel: [address] [facility] [place] CANCELED 11/23/2016 Patient Education: Patient Medication [...] F51.01 11/01/2016 Appointment: María Elena Appiah WPtel: [address] [place], [place] [phone] 10/31 lm `sl 11/01 lm`sl MEDICATION REVIEW 017 Patient Education: Patient Medication Summary Completed 11/01/2016 Referral: Canelo Overton WPtel: [address] [id number] [place] Referral Initiated 10/30/2016 Visit Diagnosis Plan: [...] Z01.419 10/17/2016 Appointment: María Elena Appiah WPtel: [address] [place], [place] [phone] 10/16 confirmed ~sl PAP 10/17/2016 Patient Education: Patient Medication Summary Completed 10/17/2016 Care Plan: MAMMOGRAM SCREENING LOINC : 2 6347-5 Pending 10/17/2016 Visit Diagnosis Plan: Other seasonal allergic rhinitis Discussion: Decadron/Garamycin Nasal Cogswell Mix Too soon for steroid Retry zyrtec 10mg daily ICD-9 : 477.9 ICD-10 : J30.2 10/10/2016 Appointment: María Elean Appiah WPtel: [address] [place], [place] [phone] FOLLOW UP 10/10/2016 Patient Education: Patient Medication Summary Completed 10/10/2016 Appointment: María Elena Appiah WPtel: [address] [place], [place] [phone] 10/02 reschedule `sl RESCHEDULED 10/02/2016 Visit Plan: See surgery for removal of n ew left arm lesion and right foot lesion Lyrica to use next month for left arm paresthesias Continue current meds Discussed sunscreen/sunblock combo 09/19/2016 Appointment: María Elena Appiah WPtel: [address] [place], [place] [phone] 09/18 confirmed ~sl FOLLOW UP 09/19/2016 Patient Education: Patient Medication Summary Completed 09/19/2016 Patient Education: Patient Medication Summary Completed 09/18/2016 Care Plan: MAMMOGRAM BOTH BREASTS LOINC : 89737-4 Pending 09/18/2016 Visit Plan: Discussed that needs [...] sinuses 08/24/2016 Appointment: María Elena Appiah WPtel: [address] [place], [place] [phone] ACUTE ILLNESS 08/24/2016 Patient Education: Patient Medication Summary Completed 08/24/2016 Patient Education: Patient Medication Summary Completed 08/23/2016 Care Plan: MAMMOGRAM SCREENING LOINC : 2 6347-5 Pending 08/23/2016 Visit Plan: Finish doxycycline Add Breo 100/25 1 p BID for 2 weeks If not improving within next 2 days will get CXR 08/16/2016 Appointment: María Elena Appiah WPtel: [address] [place] [address] ACUTE ILLNESS 08/16/2016 Patient Education: Patient Medication Summary Completed 08/16/2016 Visit Plan: Supportive care. Rest, Fluid s, Tylenol/Motrin prn fever or bodyaches. Notify if worsening symptoms. Doxycyline and Prednisone 08/10/2016 Appointment: María Elena Appiah WPtel: [address] [place] [address] 08/09 lm`sl....confirmed-sp FOLLOW UP 09/2015 Patient Education: Patient Medication Summary Completed 08/10/2016 Visit Plan: Saline nasal flushes prn. Ty lenol/Motrin prn headache. Notify if persists/symptoms worsening. Dexamethasone 8mg IM today May use coricedan and mucinex 08/02/2016 Appointment: María Elena Appiah WPtel: [address] [place] [address] ACUTE ILLNESS 08/02/2016 Patient Education: Patient Medication Summary Completed 08/02/2016 Visit Plan: Cryotherapy as above and lef t forearm lesion removal as above with 5-0 punch biopsy and sent to path Return in 10 days for suture removal 08/01/2016 Appointment: María Elena Appiah WPtel: [address] [place] [address] 07/31 confirmed`~sl OFFICE SURGERY 08/01/2016 Patient Education: Patient Medication Summary Completed 08/01/2016 Visit Plan: Stop clindamycin Check CBC, CMP, ESR now/STAT 07/27/2016 Appointment: María Elena Appiah WPtel: [address] [place] [address] ACUTE ILLNESS 07/27/2016 Patient Education: Patient Medication Summary Completed 07/27/2016 Visit Plan: Update lab and check ABIs to start with Will likely need cardiology evaluation to rule out PVD Clindamycin for 10 days Daily yogurt or probiotic Will return for removal of left arm lesions 07/20/2016 Appointment: María Elena Appiah WPtel: [address] [place] [address] ACUTE ILLNESS 07/20/2016 Patient Education: Patient Medication Summary Completed 07/20/2016 Patient Education: Patient Medication Summary Completed 07/20/2016 Care Plan: MAMMOGRAM BOTH BREASTS LOINC : 24196-0 Pending 07/20/2016 Care Plan: US EXAM CHEST LOINC : 85558-3 Pending 07/20/2016 Visit Plan: Wound culture collected from left great toe Appearance is somewhat staph like Rx as above Wound cleanser and skin care reviewed May need to add oral antibiotic if sores do not heal or continue to reoccur 07/06/2016 Appointment: Loan Sánchez [address] [place] [address] ACUTE ILLNESS 07/06/2016 Patient Education: Patient Medication Summary Completed 07/06/2016 Appointment: María Elena Appiah WPtel: [address] [place] [address] [place] INJECTION 05/25/2016 Patient Education: Patient Medication Summary Completed 05/25/2016 Visit Plan: Saline nasal flushes prn. Ty lenol/Motrin prn headache. Notify if persists/symptoms worsening. Dexamethasone and Rocephin given 04/26/2016 Appointment: María Elena Appiah WPtel: [address] [place] [address] ACUTE ILLNESS 04/26/2016 Patient Education: Patient Medication Summary Completed 04/26/2016 Visit Plan: Check CBC, CMP, TSH, FreeT4, HbA1C, estradiol, lipids in AM 03/02/2016 Appointment: María Elena Appiah WPtel: [address] [place] [address] 03/01 lm~sl ACUTE ILLNESS 03/02/2016 Patient Education: Patient Medication Summary Completed 03/02/2016 Visit Plan: Exam is nearly normal Needs to be taking daily antihistamine Would prefer to use oral steroids instead of shot but patient insist that oral steroids cause horrible headaches for her Will given kenalog IM instead 02/09/2016 Appointment: Loan Sánchez [address] [place] [address] ACUTE ILLNESS 02/09/2016 Patient Education: Patient Medication Summary Completed 02/09/2016 Visit Plan: Culture urine Macrobid DC xa nax Trial of Ativan 1mg q HS 01/24/2016 Appointment: María Elena Appiah WPtel: [address] [place] [address] ACUTE ILLNESS 01/24/2016 Patient Education: Patient Medication Summary Completed 01/24/2016 Visit Plan: No steroid or rocephin injec tion warranted Can have oral prednisone Continue current home regimen Needs to follow up with Dr Sanchez if problems persist 12/23/2015 Appointment: Loan Sánchez [address] [place] [address] ACUTE ILLNESS 12/23/2015 Patient Education: Patient Medication Summary Completed 12/23/2015 Visit Plan: Saline nasal flushes prn. Ty lenol/Motrin prn headache. Notify if persists/symptoms worsening. Kenalog 40mg IM today 12/08/2015 Appointment: María Elena Appiah WPtel: [address] [place] [address] 12/06 confirmed~sl ACUTE ILLNESS 12/08/2015 Patient Education: Patient Medication Summary Completed 12/08/2015 Appointment: María Elena Appiah WPtel: [address] [place] [address] ACUTE ILLNESS 11/18/2015 Patient Education: Patient Medication Summary Completed 10/11/2015 Appointment: María Elena Appiah WPtel: [address] [place] [address] [place] INJECTION 10/07/2015 Patient Education: Patient Medication Summary Completed 10/07/2015 Visit Plan: Check renal arterial doppler s and ECHO Change amlodopine to lotrel 5/20mg q HS Will need stress test as well Check CMP, uric acid, ESR 10/06/2015 Appointment: María Elena Appiah WPtel: [address] [place], [place] [phone] ACUTE ILLNESS 10/06/2015 Patient Education: Patient Medication Summary Completed 10/06/2015 Patient Education: [facility] - [employer]aving [employer] - Amlodipine Besylate - 18-64 - Dynamic Portal ID Completed 10/06/2015 Appointment: María Elena Appiah WPtel: [address] [place] [address] [place] FOLLOW UP 09/22/2015 Visit Plan: Cephalexin 500 mg PO bid Mery ly topical Mupirocin to lesions on left lateral neck and face Follow-up in one week. Sooner if symptoms worsen 09/14/2015 Appointment: June Flores WPtel: [address] [place] [address] ACUTE ILLNESS 09/14/2015 Patient Education: Patient Medication Summary Completed 09/14/2015 Visit Plan: Change bystolic to bedtime d osing and amlodopine to morning dosing Cryotherapy as above to AKs 09/07/2015 Appointment: María Elena Appiah WPtel: [address] [place] [address] 09/06 appointment made and confirmed ~sl FOLLOW UP 09/07/2015 Patient Education: Patient Medication Summary Completed 09/07/2015 Visit Plan: Increase bystolic back to 20 mg daily but will split and take 10mg in AM and 10mg in PM Stress Reducers 08/18/2015 Appointment: María Elena Appiah WPtel: [address] [place] [address] 08/17/15 appt confirmed cn ACUTE ILLNESS 08/18 Patient Education: Patient Medication Summary Completed 08/18/2015 Appointment: María Elena Appiah WPtel: [address] [place] [address] [place] BP CHECK 07/07/2015 Patient Education: Patient Medication Summary Completed 07/07/2015 Appointment: María Elena Appiah WPtel: [address] [place] [address] BP CHECK 06/24/2015 Patient Education: Patient Medication Summary Completed 06/24/2015 Appointment: María Elena Appiah WPtel: [address] [place] [address] BP CHECK 06/21/2015 Patient Education: Patient Medication Summary Completed 06/21/2015 Visit Plan: Lab discussed Continue curre nt meds and lifestyle modification Recheck lab in 6mos 06/16/2015 Appointment: María Elena Appiah WPtel: [address] [place] [address] 06/15 [facility] FOLLOW UP 06/16/2015 Patient Education: Patient Medication Summary Completed 06/16/2015 Patient Education: Patient Medication Summary Completed 06/15/2015 Visit Plan: Increase cymbalta to 60mg q HS Keep clonidine at current dose Recheck 2weeks Change xanax to klonopin 06/02/2015 Appointment: María Elena Appiah WPtel: [address] [place] [address] 06/02 lm FOLLOW UP 06/02/2015 Patient Education: Patient Medication Summary Completed 06/02/2015 Appointment: María Elena Appiah WPtel: [address] [place] [address] ACUTE ILLNESS 05/24/2015 Visit Plan: Increase clonidine to 0.2mg q HS Add cymbalta 30mg q HS Recheck 2weeks Stress Reducers Check fasting lab Discussed sleep study 05/20/2015 Appointment: María Elena Appiah WPtel: [address] [place] [address] ACUTE ILLNESS 05/20/2015 Patient Education: Patient Medication Summary Completed 05/20/2015 Patient Education: [facility] - [employer] - Cymbalta - 18-64 - Dynamic Portal ID Completed 05/20/2015 Appointment: María Elena Appiah WPtel: [address] [place] [address] BP CHECK 05/19/2015 Patient Education: Patient Medication Summary Completed 05/19/2015 Visit Plan: Topical Bactroban alternatin g with topical betamethasone Recheck 2weeks 05/10/2015 Appointment: María Elena Appiah WPtel: [address] [place] [address] 05/07 vm cn...05/07 appt confirmed OFFICE SURGER Y 05/10/2015 Patient Education: Patient Medication Summary Completed 05/10/2015 Referral: Patrick Chandler WPtel: [facility] [address] Referral Initiated 05/04/2015 Visit Plan: Saline nasal flushes prn. Ty lenol/Motrin prn headache. Notify if persists/symptoms worsening. Depomedrol 40mg IM today 03/16/2015 Appointment: María Elena Appiah WPtel: [address] [place] [address] ACUTE ILLNESS 03/16/2015 Patient Education: Patient Medication Summary Completed 03/16/2015 Appointment: María Elena Appiah WPtel: [address] [place] [address] ER Follow UP 03/09/2015 Visit Plan: Cryotherapy to lesions as ab ove 10/27/2014 Appointment: María Elena Appiah WPtel: [address] [place], [place] [phone] OFFICE SURGERY 10/27/2014 Patient Education: Patient Medication Summary Completed 10/27/2014 Appointment: June Flores WPtel: [address] [place] [address] ACUTE ILLNESS 09/11/2014 Patient Education: Patient Medication Summary Completed 09/11/2014 Visit Plan: Lab discussed Lipitor 10mg d aily Coenzyme Q-10 400mg daily Vitamin D3 5000u daily Recheck lipids with LFTs in 3mos then fwup 08/31/2014 Appointment: María Elena Appiah WPtel: [address] [place] [address] 08/28 voicemail FOLLOW UP 08/31/2014 Patient Education: Patient Medication Summary Completed 08/31/2014 Appointment: María Elena Appiah WPtel: [address] [place] [address] [place] LAB 08/27/2014 Appointment: María Elena Appiah WPtel: [address] [place], [place] [phone] [place] LAB 08/27/2014 Patient Education: Patient Medication Summary Completed 08/27/2014 Appointment: María Elena Appiah WPtel: [address] [place] [address] ACUTE ILLNESS 07/23/2014 Appointment: María Elena Appiah WPtel: [address] [place] [address] ACUTE ILLNESS 07/21/2014 Patient Education: Patient Medication Summary Completed 07/21/2014 Visit Plan: Kenalog 40mg IM today Contin ue narendra and singulair Add Flonase 07/15/2014 Appointment: María Elena Appiah WPtel: [address] [place] [address] ACUTE ILLNESS 07/15/2014 Appointment: María Elena Appiah WPtel: [address] [place] [address] ACUTE ILLNESS 07/15/2014 Patient Education: Patient Medication Summary Completed 07/15/2014 Visit Plan: Will do metolazone 2.5mg prn with 6 potassium and see if causes as severe cramping Trial of of seroquel XR 50mg q PM with evening meal and let us know how works 05/18/2014 Appointment: María Elena Appiah WPtel: [address] [place], [place] [address] 05/15 left message FOLLOW UP 05/18/2014 Patient Education: Patient Medication Summary Completed 05/18/2014 Appointment: María Elena Appiah WPtel: [address] [place] [address] LAB 05/14/2014 Patient Education: Patient Medication Summary Completed 05/14/2014 Appointment: María Elena Appiah WPtel: [address] [place] [address] [place] INJECTION 04/22/2014 Visit Plan: Tisha and Miranda today a nd finish abx given from urgent care 04/21/2014 Appointment: María Elena Appiah WPtel: [address] [place] [address] [place] INJECTION 04/21/2014 Patient Education: Patient Medication Summary Completed 04/21/2014 Appointment: June Flores WPtel: [address] [place] [address] ACUTE ILLNESS 03/04/2014 Patient Education: Patient Medication Summary Completed 03/04/2014 Appointment: María Elena Appiah WPtel: [address] [place] [address] [place] INJECTION 02/27/2014 Patient Education: Patient Medication Summary Completed 02/27/2014 Visit Plan: Cryotherapy as above to all lesions Patient wants to try no meds for insomnia for a while and see how goes 01/13/2014 Appointment: María Elena Appiah WPtel: [address] [place] [address] OFFICE SURGERY 01/13/2014 Patient Education: Patient Medication Summary Completed 01/13/2014 Visit Plan: Stop Melatonin Stop Soma Tri al of trazadone 75mg q HS See ENT for possible tubes as has had chronic ETD and serous otitis media with numerous steroids 12/24/2013 Appointment: María Elena Appiah WPtel: [address] [place] [address] ACUTE ILLNESS 12/24/2013 Patient Education: Patient Medication Summary Completed 12/24/2013 Visit Plan: Saline nasal flushes prn. Ty lenol/Motrin prn headache. Notify if persists/symptoms worsening. 11/12/2013 Appointment: María Elena Appiah WPtel: [address] [place] [address] ACUTE ILLNESS 11/12/2013 Patient Education: Patient Medication Summary Completed 11/12/2013 Appointment: María Elena Appiah WPtel: [address] [place] [address] ACUTE ILLNESS 10/21/2013 Patient Education: Patient Medication Summary Completed 10/21/2013 Visit Plan: Sleep hygiene and sleep rout ine Melatonin 10mg q HS Support stockings and observe 09/22/2013 Appointment: María Elena Appiah WPtel: [address] [place] [address] ACUTE ILLNESS 09/22/2013 Patient Education: Patient Medication Summary Completed 09/22/2013 Appointment: June Flores WPtel: [address] [place] [address] ACUTE ILLNESS 08/27/2013 Patient Education: Patient Medication Summary Completed 08/27/2013 Visit Plan: Proceed with CT scan of head /neck Proceed with occipital nerve injections Butrans 20mcg patch weekly until can get into see Dr. Mcdonough for injections 08/04/2013 Appointment: María Elena Appiah WPtel: [address] [place] [address] FOLLOW UP 08/04/2013 Patient Education: Patient Medication Summary Completed 08/04/2013 Visit Plan: OMT done Daily neck stretche s, moist heat Increase Celebrex to 200mg BID Add flexeril 07/23/2013 Appointment: María Elena Appiah WPtel: [address] [place] [address] 07/22 voicemail FOLLOW UP 07/23/2013 Patient Education: Patient Medication Summary Completed 07/23/2013 Appointment: María Elena Appiah WPtel: [address] [place] [address] ACUTE ILLNESS 06/23/2013 Patient Education: Patient Medication Summary Completed 06/23/2013 Appointment: María Elena Appiah WPtel: [address] [place] [address] ACUTE ILLNESS 05/26/2013 Patient Education: Patient Medication Summary Completed 05/26/2013 Visit Plan: Decrease clonidine to 0.1mg TID If BP remains stable consider decreasing amlodopine Prednisone for 5 days BP check in 1mo 04/16/2013 Appointment: María Elena Appiah WPtel: [address] [place] [address] 04/14 pt called and confirmed appt FOLLOW UP 04/16/2013 Patient Education: Patient Medication Summary Completed 04/16/2013 Appointment: María Elena Appiah WPtel: [address] [place] [address] ACUTE ILLNESS 03/05/2013 Patient Education: Patient Medication Summary Completed 03/05/2013 Visit Plan: Pt has MARIA ELENA on with Dr. Mcdonough Continue Butrans patch Refill Hydrocodone early tomorrow 12/23/2012 Appointment: María Elena Appiah WPtel: [address] [place] [address] FOLLOW UP 12/23/2012 Patient Education: Patient Medication Summary Completed 12/23/2012 Appointment: Lashawn Eckert WPtel: [address] [place] [address] ACUTE ILLNESS 12/16/2012 Patient Education: Patient Medication Summary Completed 12/16/2012 Visit Plan: Proceed with updated MRI of LS spine Continue gabapentin and add soma and diclofenac Will likely need to go for another epidural 12/09/2012 Appointment: María Elena Appiah WPtel: [address] [place] [address] ACUTE ILLNESS 12/09/2012 Patient Education: Patient Medication Summary Completed 12/09/2012 Visit Plan: Injection as above Finish me drol dose pack Chiropracter this afternoon 12/04/2012 Appointment: María Elena Appiah WPtel: [address] [place], [place] [phone] ACUTE ILLNESS 12/04/2012 Patient Education: Patient Medication Summary Completed 12/04/2012 Appointment: Mary Tillman WPtel: [address] [place] [address] FOLLOW UP 11/22/2012 Patient Education: Patient Medication Summary Completed 11/22/2012 Appointment: María Elena Appiah WPtel: [address] [place], [place] [phone] ACUTE ILLNESS 11/21/2012 Patient Education: Patient Medication Summary Completed 11/21/2012 Appointment: María Elena Appiah WPtel: [address] [place] [address] BP CHECK 11/07/2012 Patient Education: Patient Medication Summary Completed 11/07/2012 Visit Plan: reports extra clonidine and extra amlodipine and extra alprazalam. extra Ketolorac and promethazine last night. Bystolic 10 mg QAM and will continue all other blood pressure meds. Pt. encouraged to rest and hydrate. Discussed stroke and NH symptoms. Pt. instructed to seek ER eval if symptoms worsen or headache persists. Pt. agrees to ER eval/EMS transport if symptoms worsen. BP re-check. 10/29/2012 Appointment: Lashawn Eckert WPtel: [address] [place] [address] ACUTE ILLNESS 10/29/2012 Patient Education: Patient Medication Summary Completed 10/29/2012 Appointment: María Elena Appiah WPtel: [address] [place], [place] [id number] ACUTE ILLNESS 10/14/2012 Patient Education: Patient Medication Summary Completed 10/14/2012 Appointment: María Elena Appiah WPtel: [address] [place], [place] [id number] UA 09/27/2012 Patient Education: Patient Medication Summary Completed 09/27/2012 Appointment: María Elena Appiah WPtel: [address] [place], [place] [phone] ACUTE ILLNESS 09/25/2012 Patient Education: Patient Medication Summary Completed 09/25/2012 Appointment: María Elena Appiah WPtel: [address] [place], [place] [phone] BP CHECK 09/24/2012 Appointment: María lEena Appiah WPtel: [address] [place], [place] [id number] ACUTE ILLNESS 08/29/2012 Patient Education: Patient Medication Summary Completed 08/29/2012 Visit Plan: Cryotherapy as above See Karlos m for right ear lesion--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 ACUTE ILLNESS 05/06/2012 Patient Education: Patient Medication Summary Completed 05/06/2012 Visit Plan: Pt wants to hold on any furt her sleep medications 04/03/2012 Appointment: María Elena Appiah WPtel: [address] [place], [place] [phone] FOLLOW UP 04/03/2012 Patient Education: Patient Medication Summary Completed 04/03/2012 Appointment: María Elena Appiah WPtel: [address] [place], [place] [phone] [place] FOLLOW UP 03/19/2012 Patient Education: Patient Medication Summary Completed 03/19/2012 Appointment: María Elena Appiah WPtel: [address] [place] [address] BP CHECK 02/22/2012 Patient Education: Patient Medication Summary Completed 02/22/2012 Appointment: María Elena Appiahtel: [address] [place] [address] BP CHECK 02/21/2012 Patient Education: Patient Medication Summary Completed 02/21/2012 Visit Plan: Doxycycline and bactroban fo r foot Supportive care on ankles and knees Add norvasc for BP 02/20/2012 Appointment: Mraía Elena Appiah WPtel: [address] [place] [address] ER Follow UP 02/20/2012 Patient Education: Patient Medication Summary Completed 02/20/2012 Appointment: María Elena Appiah WPtel: [address] [place] [address] ACUTE ILLNESS 01/30/2012 Patient Education: Patient Medication Summary Completed 01/30/2012 Appointment: María Elena Appiahtel: [address] [place] [address] ACUTE ILLNESS 01/24/2012 Patient Education: Patient Medication Summary Completed 01/24/2012 Visit Plan: Daily back stretches, moist heat, Biofreeze prn OMT done 01/10/2012 Appointment: María Elena Appiah WPtel: [address] [place] [address] ACUTE ILLNESS 01/10/2012 Patient Education: Patient Medication Summary Completed 01/10/2012 Appointment: María Elena Appiahtel: [address] [place] [address] [place] FOLLOW UP 12/11/2011 Patient Education: Patient Medication Summary Completed 12/11/2011 Appointment: María Elena Appiah WPtel: [address] [place] [address] ACUTE ILLNESS 11/09/2011 Patient Education: Patient Medication Summary Completed 11/09/2011 Appointment: María Elena Appiahtel: [address] [place], [place] [id number] ACUTE ILLNESS 09/13/2011 Patient Education: Patient Medication Summary Completed 09/13/2011 Visit Plan: Check CBC, TSH, Free T4, CMP , ESR, Vit D, B12 now Start Prednisone today 08/31/2011 Appointment: María Elena Appiah WPtel: [address] [place], [place] [phone] ACUTE ILLNESS 08/31/2011 Patient Education: Patient Medication Summary Completed 08/31/2011 Appointment: María Elena Appiah WPtel: [address] [place], [place] [phone] [place] INJECTION 07/20/2011 Patient Education: Patient Medication Summary Completed 07/20/2011 Visit Plan: Continue current meds Monite r BP Cont stretches from PT 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 07/06/2011 Appointment: María Elena Appiah WPtel: [address] [place] [address] FOLLOW UP 07/06/2011 Patient Education: Patient Medication Summary Completed 07/06/2011 Appointment: María Elena Appiahtel: [address] [place] [address] BP CHECK 06/06/2011 Patient Education: Patient Medication Summary Completed 06/06/2011 Visit Plan: Add Bystolic at 2.5mg QAM Ad d Robaxin 750mg 2 po q HS BP check in 2wks 05/22/2011 Appointment: María Elena Appiah WPtel: [address] [place], [place] [phone] FOLLOW UP 05/22/2011 Patient Education: Patient Medication Summary Completed 05/22/2011 Appointment: María Elena Appiahtel: [address] [place], [place] [id number] ER Follow UP 05/09/2011 Patient Education: Patient Medication Summary Completed 05/09/2011 Appointment: María Elena Appiah WPtel: [address] [place] [address] FOLLOW UP 02/22/2011 Visit Plan: Rx written for Hydrocodone 1 0/325mg #240 See Ortho 02/14/2011 Appointment: María Elena Appiah WPtel: [address] [place] [address] [place] OMT 02/14/2011 Patient Education: Patient Medication [...] lab work. 02/03/2011 Appointment: Lashawn Eckert WPtel: [address] [place] [address] ACUTE ILLNESS 02/03/2011 Patient Education: Patient Medication Summary Completed 02/03/2011 Visit Plan: OMT done Cont daily stretche s 01/31/2011 Appointment: María Elena Appiah WPtel: [address] [place] [address] ACUTE ILLNESS 01/31/2011 Patient Education: Patient Medication Summary Completed 01/31/2011 Visit Plan: Continue pain meds OMT done Proceed with PT No work this summer01/25/2011 Appointment: María Elena Appiah WPtel: [address] [place] [address] ACUTE ILLNESS 01/25/2011 Patient Education: Patient Medication Summary Completed 01/25/2011 Visit Plan: Start PT Long discussion abo ut getting pain meds from only us and can only have max of 4grams of tylenol per day Change to Hydrocodone 10/325mg 1- 2 po TID prn pain--#180 called to [facility] 01/18/2011 Appointment: María Elena Appiahtel: [address] [place] [address] FOLLOW UP 01/18/2011 Patient Education: Patient Medication Summary Completed 01/18/2011 Visit Plan: Daily back stretches, moist heat, Biofreeze prn 11/29/2010 Appointment: María Elena Appiahtel: [address] [place] [address] ER Follow UP 11/29/2010 Patient Education: Patient Medication Summary Completed 11/29/2010 Visit Plan: Saline nasal flushes prn. Ty lenol/Motrin prn headache. Notify if persists/symptoms worsening. Finish augmentin Add Medrol Dose Pack 10/10/2010 Appointment: María Elena Appiahtel: [address] [place] [address] ACUTE ILLNESS 10/10/2010 Patient Education: Patient Medication Summary Completed 10/10/2010 Visit Plan: Cryotherapy x3 to multiple l esions on both forearms 07/19/2010 Appointment: María Elena Appiahtel: [address] [place] [address] OFFICE SURGERY 07/19/2010 Patient Education: Patient Medication Summary Completed 07/19/2010 Appointment: María Elena Appiahtel: [address] [place] [address] BP CHECK 07/06/2010 Patient Education: Patient Medication Summary Completed 07/06/2010 Appointment: María Elena Appiahtel: [address] [place] [address] BP CHECK 06/30/2010 Patient Education: Patient Medication Summary Completed 06/30/2010 Appointment: María Elena Appiahtel: [address] [place] [address] BP CHECK 06/20/2010 Patient Education: Patient Medication Summary Completed 06/20/2010 Visit Plan: Change Diovan to Exforge 160 /5mg QD OMT done to thoracics BP check in 2wks 06/07/2010 Appointment: María Elena Appiahtel: [address] [place] [address] FOLLOW UP 06/07/2010 Patient Education: Patient Medication Summary Completed 06/07/2010 Appointment: María Elena Appiah WPtel: [address] [place] [address] BP CHECK 06/03/2010 Patient Education: Patient Medication Summary Completed 06/03/2010 Appointment: María Elena Appiahtel: [address] [place] [address] BP CHECK 06/01/2010 Patient Education: Patient Medication Summary Completed 06/01/2010 Visit Plan: Irritated skin tags to left neck x2 excised at base with scissors and base cauterized 05/30/2010 Appointment: María Elena Appiah WPtel: [address] [place] [address] OFFICE SURGERY 05/30/2010 Patient Education: Patient Medication Summary Completed 05/30/2010 Visit Plan: Saline nasal flushes prn. Ty lenol/Motrin prn headache. Notify if persists/symptoms worsening. Restart Nasonex Has allergy testing set for May 25 04/27/2010 Appointment: María Elena Appiah WPtel: [address] [place] [address] ACUTE ILLNESS 04/27/2010 Patient Education: Patient Medication Summary Completed 04/27/2010 Visit Plan: Saline nasal flushes prn. Ty lenol/Motrin prn headache. Notify if persists/symptoms worsening. Omnaris BID plus injections 04/05/2010 Appointment: María Elena Appiah WPtel: [address] [place] [address] ACUTE ILLNESS 04/05/2010 Patient Education: Patient Medication Summary Completed 04/05/2010 Visit Plan: Saline nasal flushes prn. Ty lenol/Motrin prn headache. Notify if persists/symptoms worsening. 03/09/2010 Appointment: María Elena Appiah WPtel: [address] [place] [address] ACUTE ILLNESS 03/09/2010 Patient Education: Patient Medication Summary Completed 03/09/2010 Visit Plan: Cont Clonidine as is Cont Pr emarin Fwup with surgery as scheduled 03/03/2010 Appointment: María Elena Appiah WPtel: [address] [place] [address] FOLLOW UP 03/03/2010 Patient Education: Patient Medication Summary Completed 03/03/2010 Visit Plan: Check Pelvic US now Discusse tacho Dand C vs Hysterectomy 01/17/2010 Appointment: María Elena Appiah WPtel: [address] [place] [address] ACUTE ILLNESS 01/17/2010 Patient Education: Patient Medication Summary Completed 01/17/2010 Visit Plan: Check fasting lab and schedu le Mammogram 2gm Na Diet Trial of Ambien 10mg qhs Fwup pending lab results 12/27/2009 Appointment: María Elena Appiah WPtel: [address] [place] [address] ESTABLISHED PATIENT 12/27/2009 Patient Education: Patient Medication Summary Completed 12/27/2009 Referral: Canelo Overton WPtel: [address] [id number] [place] Referral Initiated Referral: Philipp Flores WPtel: [address] [id number] [place] Referral Appointment Requested Instructions Comment . [...] to rest and hydrate. Discussed stroke and NH symptoms. Pt. instructed to seek ER eval [...]
[2020-03-13 04:05] VITALS: BP 101/66
--- OUTSIDE RECORDS SUMMARY | 2020-03-13 04:07 | XMS REPORT | CCD ---
Author Author Gale Appiah D.O. Organization [facility] Address [address] [place] [address] Phone Care Team Providers Care Gynecology Teacher Name Role Phone María Elena Appiah D.O., PP Unavailable CCM Unavailable Summary Purpose Interface Exchange Insurance Providers Payer name Policy type / Coverage type Covered democrat ID Effective Begin Date Effective End Date [facility] Commercial Insurance [id number] Unknown Family History Family History data not found Social History Social History Element Codes Description Effective Dates Tobacco history SNOMED CT: 058234452 Never smoker 05/22/2011 Allergies, Adverse Reactions, Alerts Substance Reaction Codes Entered Date Inactivated Date Status * NO KNOWN FOOD ALLERGIES Unknown 12/27/2009 No Inactiv e Date Active _ Unknown 03/10/2013 No Inactive Date Active _ Unknown 12/27/2009 No Inactive Date Active SULFA (SULFONAMIDE ANTIBIOTICS) Unknown 12/27/2009 No I nactive Date Active Problems Condition Codes Effective Dates Condition Status Blister (nonthermal), right foot, initial encounter IC [...] Start Date Stop Date Status Fill Instructions hydrocodone 10 mg-acetaminophen 325 mg tablet RxNorm: 313642 1-2 Tablet(s) Oral three times a day as needed for pain 02/27/2020 02/27/2020 Inactive cyclobenzaprine 10 mg tablet RxNorm: 638680 TAKE ONE TA BLET BY MOUTH THREE TIMES A DAY NEEDED FOR MUSCLE SPASMS 02/27/2020 No Stop Date Active Premarin 1.25 mg tablet RxNorm: 126367 1 Tablet(s) Oral QD 02/16/20 20 05/15/2020 Active celecoxib 200 mg capsule RxNorm: 411794 1 Capsule(s) Or al two times a day as needed for pain 02/16/2020 05/15/2020 Active Farxiga 10 mg tablet RxNorm: 9782249 1 Tablet(s) Oral QAM 02/13/2020 05/13/2020 Active Farxiga 10 mg tablet RxNorm: 8383941 1 Tablet(s) Oral QAM 02/13/2020 02/12/2020 Inactive Keflex 500 mg capsule RxNorm: 001404 1 Capsule(s) Oral two time s a day 02/12/2020 02/19/2020 Inactive Lipitor 10 mg tablet RxNorm: 759604 TAKE ONE TABLET BY MOUTH DAILY 01/23/2020 No Stop Date Active Januvia 100 mg tablet RxNorm: 485845 TAKE ONE TABLET BY MOUTH DAILY 01/22/2020 No Stop Date Active gabapentin 300 mg capsule RxNorm: 545432 TAKE ONE CAPSU LE BY MOUTH EVERY NIGHT AT BEDTIME 01/22/2020 No Stop Date Active allopurinol 300 mg tablet RxNorm: TAKE ONE TABLET BY LOPEZ TH DAILY 01/22/2020 No Stop Date Active Klor-Con 8 mEq tablet,extended release RxNorm: 120367 T FARRUKH ONE TABLET BY MOUTH TWICE A DAY 01/22/2020 No Stop Date Active doxepin 25 mg capsule RxNorm: 8532985 TAKE ONE CAPSULE B Y MOUTH EVERY NIGHT AT BEDTIME NEEDED FOR SLEEP 01/22/2020 No Stop Date Active glimepiride 4 mg tablet RxNorm: 076893 1 Tablet(s) Oral two times a day replaces 2mg dose 01/13/2020 04/12/2020 Active lisinopril 40 mg tablet RxNorm: 394789 1 Tablet(s) Oral QD repl aces 20mg dose 01/13/2020 04/12/2020 Active hydrocodone 10 mg-acetaminophen 325 mg tablet RxNorm: 488410 1-2 Tablet(s) Oral three times a day as needed for pain 01/12/2020 02/26/2020 Inactive cyclobenzaprine 10 mg tablet RxNorm: 472636 TAKE ONE TA BLET BY MOUTH THREE TIMES A DAY NEEDED FOR MUSCLE SPASMS 01/05/2020 02/26/2020 Inactive triamterene 75 mg-hydrochlorothiazide 50 mg tablet RxNorm: 3 05451 TAKE ONE TABLET BY MOUTH DAILY 12/29/2019 No Stop Date Active Klor-Con 8 mEq tablet,extended release RxNorm: 802919 T FARRUKH ONE TABLET BY MOUTH TWICE A DAY 12/19/2019 01/21/2020 Inactive allopurinol 300 mg tablet RxNorm: TAKE ONE TABLET BY LOPEZ TH DAILY 12/19/2019 01/21/2020 Inactive glimepiride 2 mg tablet RxNorm: 364557 TAKE ONE TABLET BY MOUTH TWICE A DAY 12/19/2019 01/12/2020 Inactive hydrocodone 10 mg-acetaminophen 325 mg tablet RxNorm: 294798 1-2 Tablet(s) Oral three times a day as needed for pain 12/10/2019 01/11/2020 Inactive Januvia 100 mg tablet RxNorm: 126722 1 Tablet(s) Oral QD 11/20/2019 0 11/20/2019 Inactive glimepiride 2 mg tablet RxNorm: 025034 1 Tablet(s) Oral two sawyer es a day 11/20/2019 12/18/2019 Inactive cyclobenzaprine 10 mg tablet RxNorm: 262282 TAKE ONE TA BLET BY MOUTH THREE TIMES A DAY NEEDED FOR MUSCLE SPASMS 11/17/2019 01/04/2020 Inactive doxepin 25 mg capsule RxNorm: 8809936 TAKE ONE CAPSULE B Y MOUTH EVERY NIGHT AT BEDTIME NEEDED FOR SLEEP 11/16/2019 01/21/2020 Inactive Klor-Con 8 mEq tablet,extended release RxNorm: 100550 T FARRUKH ONE TABLET BY MOUTH TWICE A DAY 11/16/2019 12/18/2019 Inactive hydrocodone 10 mg-acetaminophen 325 mg tablet RxNorm: 785530 1-2 Tablet(s) Oral three times a day as needed for pain 11/10/2019 12/09/2019 Inactive cyclobenzaprine 10 mg tablet RxNorm: 220289 TAKE ONE TA BLET BY MOUTH THREE TIMES A DAY NEEDED FOR MUSCLE SPASMS 10/23/2019 11/16/2019 Inactive duloxetine 60 mg capsule,delayed release RxNorm: 112961 1 Capsu le(s) Oral QD 10/17/2019 04/13/2020 Active Singulair 10 mg tablet RxNorm: 997273 1 Tablet(s) Oral QD 10/17/2019 04/14/2020 Active metoprolol tartrate 100 mg tablet RxNorm: 828113 1 Tabl et(s) Oral two times a day 10/17/2019 04/13/2020 Active clonidine HCl 0.1 mg tablet RxNorm: 875127 1 Tablet(s) Oral fou r times a day 10/17/2019 04/13/2020 Active celecoxib 200 mg capsule RxNorm: 626179 1 Capsule(s) Or al two times a day as needed for pain 10/17/2019 02/15/2020 Inactive lisinopril 20 mg tablet RxNorm: 053180 1 Tablet(s) Oral QD 10/17/19 20 01/12/2020 Inactive gabapentin 300 mg capsule RxNorm: 342818 1 Capsule(s) O ral every night at bedtime 10/17/2019 01/15/2020 Inactive Klor-Con 8 mEq tablet,extended release RxNorm: 963608 1 Tablet(s) Oral two times a day 10/17/2019 11/15/2019 Inactive Januvia 100 mg tablet RxNorm: 907098 1 Tablet(s) Oral QD 10/17/2019 0 01/12/2020 Inactive Lipitor 10 mg tablet RxNorm: 083681 1 Tablet(s) Oral QD 10/17/2019 Inactive Steglatro 15 mg tablet RxNorm: 0679301 1 Tablet(s) Oral QD 10/17/19 20 02/12/2020 Inactive Glyxambi 25 mg-5 mg tablet RxNorm: 3677946 1 Tablet(s) Oral QD 01/202010/16/2019 Inactive Patient will bring in copay discount card as well Glyxambi 25 mg-5 mg tablet RxNorm: 2632262 1 Tablet(s) Oral QD 01/202010/14/2019 Inactive Patient will bring in copay discount card as well Keflex 500 mg capsule RxNorm: 097006 1 Capsule(s) Oral two time s a day 10/07/2019 10/14/2019 Inactive Premarin 1.25 mg tablet RxNorm: 513699 1 Tablet(s) Oral QD 09/30/19 20 02/15/2020 Inactive hydrocodone 10 mg-acetaminophen 325 mg tablet RxNorm: 007881 1-2 Tablet(s) Oral three times a day as needed for pain 09/30/2019 09/30/2019 Inactive baclofen 10 mg tablet RxNorm: 681638 TAKE ONE TABLET BY MOUTH THREE TIMES A DAY NEEDED 09/19/2019 No Stop Date Active gabapentin 300 mg capsule RxNorm: 958446 TAKE ONE CAPSU LE BY MOUTH EVERY NIGHT AT BEDTIME 09/19/2019 10/16/2019 Inactive Klor-Con 8 mEq tablet,extended release RxNorm: 409242 T FARRUKH ONE TABLET BY MOUTH TWICE A DAY 1 Tablet(s) Oral two times a day 09/19/2019 10/16/2019 Renu ctive hydrocodone 10 mg-acetaminophen 325 mg tablet RxNorm: 774608 1-2 Tablet(s) Oral three times a day as needed for pain 09/19/2019 09/29/2019 Inactive duloxetine 60 mg capsule,delayed release RxNorm: 116177 TAKE ONE CAPSULE BY MOUTH DAILY 09/11/2019 10/16/2019 Inactive Lipitor 10 mg tablet RxNorm: 445231 TAKE ONE TABLET BY MOUTH AT BEDTIME 09/11/2019 10/16/2019 Inactive lisinopril 20 mg tablet RxNorm: 571231 TAKE ONE TABLET BY MOUTH DAILY .... THIS REPLACE 10MG TABLETS 09/11/2019 10/16/2019 Inactive triamterene 75 mg-hydrochlorothiazide 50 mg tablet RxNorm: 3 11663 TAKE ONE TABLET BY MOUTH DAILY 09/11/2019 12/28/2019 Inactive allopurinol 300 mg tablet RxNorm: 623749 TAKE ONE TABLET BY LOPEZ TH DAILY 09/11/2019 12/18/2019 Inactive celecoxib 200 mg capsule RxNorm: 724872 TAKE ONE CAPSUL E BY MOUTH TWICE A DAY NEEDED FOR PAIN 09/11/2019 10/16/2019 Inactive clonidine HCl 0.1 mg tablet RxNorm: 168835 TAKE ONE TAB LET BY MOUTH FOUR TIMES A DAY 09/11/2019 10/16/2019 Inactive doxepin 25 mg capsule RxNorm: 9170340 1 Capsule(s) Oral every night at bedtime as needed for sleep 08/21/2019 11/15/2019 Inactive hydrocodone 10 mg-acetaminophen 325 mg tablet RxNorm: 154757 1-2 Tablet(s) PO TID 08/12/2019 09/29/2019 Inactive as needed for pa in - Previous quantity #240, will start dosing for #180 in April 2011 per Doctor Td. Medrol (Dustin) 4 mg tablets in a dose pack RxNorm: 674929 Tablet(s) Oral As Directed 07/21/2019 09/29/2019 Inactive Premarin 1.25 mg tablet RxNorm: 763326 1 Tablet(s) Oral QD 07/02/2009/29/2019 Inactive hydrocodone 10 mg-acetaminophen 325 mg tablet RxNorm: 797894 1-2 Tablet(s) PO TID 07/01/2019 08/11/2019 Inactive as needed for pa in - Previous quantity #240, will start dosing for #180 in April 2011 per Doctor Td. gabapentin 300 mg capsule RxNorm: 875315 1 Capsule(s) PO QHS 201809/18/2019 Inactive celecoxib 200 mg capsule RxNorm: 521464 1 Capsule(s) Or al two times a day as needed for pain 06/27/2019 06/27/2019 Inactive doxepin 25 mg capsule RxNorm: 1226653 TAKE ONE CAPSULE B Y MOUTH EVERY NIGHT AT BEDTIME NEEDED FOR SLEEP 06/24/2019 08/20/2019 Inactive Singulair 10 mg tablet RxNorm: 026544 TAKE ONE TABLET BY MOUTH JOSÉ Y 06/24/2019 10/16/2019 Inactive furosemide 40 mg tablet RxNorm: 022496 TAKE ONE TABLET BY MOUTH EVERY MORNING NEEDED FOR EDEMA . TAKE WITH POTASSIUM 06/24/2019 01/12/2020 Inactive lisinopril 20 mg tablet RxNorm: 674933 TAKE ONE TABLET BY MOUTH DAILY .... THIS REPLACE 10MG TABLETS 06/24/2019 09/10/2019 Inactive nystatin-triamcinolone 100,000 unit/g-0.1 % topical cream Rx Norm: 4685773 1 Application Topical two times a day 06/12/2019 06/19/2019 Inactive apply BID for 1 week nystatin-triamcinolone 100,000 unit/g-0.1 % topical cream Rx Norm: 7120930 1 Application Topical two times a day 06/12/2019 06/11/2019 Inactive apply BID for 1 week hydrocodone 10 mg-acetaminophen 325 mg tablet RxNorm: 184493 1-2 Tablet(s) PO QID as needed for pain MUST LAST 30 DAYS 05/28/2019 06/26/2019 Inactiv e (Response to an electronic controlled substance refill request - RxReferenceNumber: [id number]) baclofen 20 mg tablet RxNorm: 779325 1 Tablet(s) PO TID as needed for muscle spasm 05/19/2019 05/27/2019 Inactive gabapentin 300 mg capsule RxNorm: 910400 1 Capsule(s) PO QHS 201805/27/2019 Inactive lisinopril 20 mg tablet RxNorm: 805743 1 Tablet(s) PO Q D TAKE ONE TABLET BY MOUTH DAILY, REPLACES 10 MG DOSE 05/19/2019 06/23/2019 Inactive doxepin 25 mg capsule RxNorm: 3279007 TAKE ONE CAPSULE B Y MOUTH EVERY NIGHT AT BEDTIME NEEDED FOR SLEEP 05/16/2019 06/14/2019 Inactive lisinopril 20 mg tablet RxNorm: 726159 TAKE ONE TABLET BY MOUTH DAILY, REPLACES 10 MG DOSE 05/16/2019 05/18/2019 Inactive Singulair 10 mg tablet RxNorm: 667920 TAKE ONE TABLET BY MOUTH JOSÉ Y 05/16/2019 06/14/2019 Inactive gabapentin 300 mg capsule RxNorm: 750041 1 Capsule(s) PO QHS 201805/04/2019 Inactive estropipate 1.5 mg tablet RxNorm: 762385 1 Tablet(s) PO QD 05/05/2005/27/2019 Inactive estropipate 1.5 mg tablet RxNorm: 721216 1 Tablet(s) PO QD 05/05/20 19 05/04/2019 Inactive gabapentin 300 mg capsule RxNorm: 732708 1 Capsule(s) PO QHS 201805/18/2019 Inactive hydrocodone 10 mg-acetaminophen 325 mg tablet RxNorm: 024958 1-2 Tablet(s) PO QID as needed for pain MUST LAST 30 DAYS 04/25/2019 05/24/2019 Inactiv e (Response to an electronic controlled substance refill request - RxReferenceNumber: [id number]) cyclobenzaprine 10 mg tablet RxNorm: 221333 TAKE ONE TA BLET BY MOUTH THREE TIMES A DAY NEEDED FOR MUSCLE SPASMS 04/24/2019 05/18/2019 Inactive metoprolol tartrate 100 mg tablet RxNorm: 423445 TAKE O NE TABLET BY MOUTH TWICE A DAY 04/24/2019 10/16/2019 Inactive Lyrica 75 mg capsule RxNorm: 561818 1 Capsule(s) PO QHS 03/25/2019 Inactive duloxetine 60 mg capsule,delayed release RxNorm: 016024 TAKE ONE CAPSULE BY MOUTH DAILY 03/21/2019 05/19/2019 Inactive triamterene 75 mg-hydrochlorothiazide 50 mg tablet RxNorm: 3 38891 TAKE ONE TABLET BY MOUTH DAILY 03/21/2019 05/19/2019 Inactive Klor-Con 8 mEq tablet,extended release RxNorm: 790627 T FARRUKH ONE TABLET BY MOUTH TWICE A DAY 03/21/2019 09/18/2019 Inactive Lipitor 10 mg tablet RxNorm: 294130 TAKE ONE TABLET BY MOUTH AT BEDTIME 03/21/2019 09/10/2019 Inactive clonidine HCl 0.1 mg tablet RxNorm: 404341 TAKE ONE TAB LET BY MOUTH FOUR TIMES A DAY 03/21/2019 05/19/2019 Inactive allopurinol 300 mg tablet RxNorm: 997424 TAKE ONE TABLET BY LOPEZ TH DAILY 03/21/2019 05/19/2019 Inactive hydrocodone 10 mg-acetaminophen 325 mg tablet RxNorm: 959062 1-2 Tablet(s) PO QID as needed for pain MUST LAST 30 DAYS 02/28/2019 03/29/2019 Inactiv e (Response to an electronic controlled substance refill request - RxReferenceNumber: [id number]) furosemide 40 mg tablet RxNorm: 484912 TAKE ONE TABLET BY MOUTH EVERY MORNING NEEDED FOR EDEMA . TAKE WITH POTASSIUM 02/21/2019 03/22/2019 Inactive cyclobenzaprine 10 mg tablet RxNorm: 260509 TAKE ONE TA BLET BY MOUTH THREE TIMES A DAY NEEDED FOR MUSCLE SPASMS 02/21/2019 04/21/2019 Inactive lisinopril 20 mg tablet RxNorm: 811951 TAKE ONE TABLET BY MOUTH DAILY, REPLACES 10 MG DOSE 02/21/2019 05/15/2019 Inactive doxepin 25 mg capsule RxNorm: 7054110 TAKE ONE CAPSULE B Y MOUTH EVERY NIGHT AT BEDTIME NEEDED FOR SLEEP 02/21/2019 05/15/2019 Inactive nystatin 100,000 unit/gram topical cream RxNorm: 685410 APPLY TO AFFECTED AREA(S) TWO TIMES A DAY 02/21/2019 03/22/2019 Inactive estradiol 1 mg tablet RxNorm: 325491 2 Tablet(s) PO QD replaces premarin 01/22/2019 05/04/2019 Inactive lisinopril 20 mg tablet RxNorm: 079137 TAKE ONE TABLET BY MOUTH DAILY, REPLACES 10 MG DOSE 01/20/2019 02/18/2019 Inactive cyclobenzaprine 10 mg tablet RxNorm: 934198 TAKE ONE TA BLET BY MOUTH THREE TIMES A DAY NEEDED FOR MUSCLE SPASMS 01/20/2019 02/18/2019 Inactive metoprolol tartrate 100 mg tablet RxNorm: 208368 TAKE O NE TABLET BY MOUTH TWICE A DAY 01/20/2019 02/18/2019 Inactive cyclobenzaprine 10 mg tablet RxNorm: 605327 TAKE ONE TA BLET BY MOUTH THREE TIMES A DAY NEEDED FOR MUSCLE SPASMS 12/19/2018 01/17/2019 Inactive lisinopril 20 mg tablet RxNorm: 265196 TAKE ONE TABLET BY MOUTH DAILY, REPLACES 10 MG DOSE 12/19/2018 01/17/2019 Inactive duloxetine 60 mg capsule,delayed release RxNorm: 385670 TAKE ONE CAPSULE BY MOUTH DAILY 12/19/2018 01/17/2019 Inactive Lipitor 10 mg tablet RxNorm: 910133 TAKE ONE TABLET BY MOUTH AT BEDTIME 12/19/2018 01/17/2019 Inactive cyclobenzaprine 10 mg tablet RxNorm: 310099 1 Tablet(s) PO TID as needed for muscle spasm 11/19/2018 12/18/2018 Inactive Singulair 10 mg tablet RxNorm: 066580 1 Tablet(s) PO QD 11/19/2018 Inactive lisinopril 20 mg tablet RxNorm: 863632 TAKE ONE TABLET BY MOUTH DAILY, REPLACES 10 MG DOSE 11/15/2018 12/18/2018 Inactive hydrocodone 10 mg-acetaminophen 325 mg tablet RxNorm: 538952 1-2 Tablet(s) PO QID as needed for pain MUST LAST 30 DAYS 11/13/2018 12/12/2018 Inactiv e (Response to an electronic controlled substance refill request - RxReferenceNumber: [id number]) nystatin 100,000 unit/gram topical cream RxNorm: 797121 APPLY TO AFFECTED AREA(S) TWO TIMES A DAY 10/23/2018 11/06/2018 Inactive lisinopril 20 mg tablet RxNorm: 151943 1 Tablet(s) PO QD replac es 10mg dose 10/18/2018 11/14/2018 Inactive hydrocodone 10 mg-acetaminophen 325 mg tablet RxNorm: 523431 1-2 Tablet(s) QID as needed for pain MUST LAST 30 DAYS 10/08/2018 11/06/2018 Inactive (Response to an electronic controlled substance refill request - RxReferenceNumber: [id number]) lisinopril 10 mg tablet RxNorm: 285089 1 Tablet(s) PO QD 10/03/2018 0 01/21/2019 Inactive Celebrex 200 mg capsule RxNorm: 566476 TAKE ONE CAPSULE BY MOUT H TWICE A DAY 09/30/2018 05/04/2019 Inactive cyclobenzaprine 10 mg tablet RxNorm: 645434 TAKE ONE TA BLET BY MOUTH THREE TIMES A DAY NEEDED FOR MUSCLE SPASMS 09/30/2018 11/18/2018 Inactive doxepin 25 mg capsule RxNorm: 4380834 TAKE ONE CAPSULE B Y MOUTH EVERY NIGHT AT BEDTIME NEEDED 09/05/2018 10/16/2018 Inactive omeprazole 40 mg capsule,delayed release RxNorm: 135899 TAKE ONE CAPSULE BY MOUTH DAILY 09/05/2018 01/21/2019 Inactive furosemide 40 mg tablet RxNorm: 609464 TAKE ONE TABLET BY MOUTH EVERY MORNING NEEDED FOR EDEMA . TAKE WITH POTASSIUM 09/05/2018 11/03/2018 Inactive phentermine 37.5 mg tablet RxNorm: 378463 1 Tablet(s) PO QAM 201701/21/2019 Inactive doxepin 25 mg capsule RxNorm: 9517219 1 Capsule(s) PO QH S as needed for sleep TAKE ONE CAPSULE BY MOUTH EVERY NIGHT AT BEDTIME NEEDED 08/27/2018 09/04/2018 Inactive Keflex 500 mg capsule RxNorm: 620883 1 Capsule(s) PO TID 08/09/2018 1 10/19/2017 Inactive Diflucan 100 mg tablet RxNorm: 273189 1 Tablet(s) PO QD 08/09/2018 Inactive Premarin 1.25 mg tablet RxNorm: 791465 2 Tablet(s) PO QD 08/09/2018 0 05/04/2019 Inactive Zofran ODT 4 mg disintegrating tablet RxNorm: 245021 1 Tablet(s) PO Q4H as needed for nausea 08/09/2018 01/21/2019 Inactive metoprolol tartrate 100 mg tablet RxNorm: 973541 TAKE O NE TABLET BY MOUTH TWICE A DAY 2018 10/04/2018 Inactive doxepin 25 mg capsule RxNorm: 8001678 TAKE ONE CAPSULE B Y MOUTH EVERY NIGHT AT BEDTIME NEEDED 2018 08/26/2018 Inactive cyclobenzaprine 10 mg tablet RxNorm: 889880 TAKE ONE TA BLET BY MOUTH THREE TIMES A DAY NEEDED FOR MUSCLE SPASMS 2018 09/29/2018 Inactive hydrocodone 10 mg-acetaminophen 325 mg tablet RxNorm: 682796 1-2 Tablet(s) QID as needed for pain MUST LAST 30 DAYS 07/29/2018 08/27/2018 Inactive (Response to an electronic controlled substance refill request - RxReferenceNumber: [id number]) nystatin 100,000 unit/gram topical powder RxNorm: 570200 Applic ation TOP BID 07/22/2018 08/04/2018 Inactive doxepin 25 mg capsule RxNorm: 7282092 1 Capsule(s) PO QHS as needed 07/22/2018 08/05/2018 Inactive triamterene 75 mg-hydrochlorothiazide 50 mg tablet RxNorm: 3 98283 TAKE ONE TABLET BY MOUTH DAILY 07/05/2018 10/02/2018 Inactive duloxetine 60 mg capsule,delayed release RxNorm: 435375 TAKE ONE CAPSULE BY MOUTH DAILY 07/05/2018 09/02/2018 Inactive Klor-Con 8 mEq tablet,extended release RxNorm: 166354 T FARRUKH ONE TABLET BY MOUTH TWICE A DAY 07/05/2018 10/02/2018 Inactive Lipitor 10 mg tablet RxNorm: 569176 TAKE ONE TABLET BY MOUTH AT BEDTIME 07/05/2018 09/02/2018 Inactive allopurinol 300 mg tablet RxNorm: 889430 TAKE ONE TABLET BY LOPEZ TH DAILY 07/05/2018 10/02/2018 Inactive clonidine HCl 0.1 mg tablet RxNorm: 899684 TAKE ONE TAB LET BY MOUTH FOUR TIMES A DAY 07/05/2018 10/02/2018 Inactive hydrocodone 10 mg-acetaminophen 325 mg tablet RxNorm: 290117 1-2 Tablet(s) QID as needed for pain MUST LAST 30 DAYS 06/28/2018 07/27/2018 Inactive (Response to an electronic controlled substance refill request - RxReferenceNumber: [id number]) MediHoney (calcium alginate-honey) 4" X 5" bandage RxNorm: 1 Application TOP QD 06/17/2018 06/26/2018 Inactive honey-hydrocolloid dressing 4" X 5" RxNorm: 1 Application TOP QD 06/17/2018 07/16/2018 Inactive furosemide 40 mg tablet RxNorm: 588065 TAKE ONE TABLET BY MOUTH EVERY MORNING NEEDED FOR EDEMA . TAKE WITH POTASSIUM 06/10/2018 07/09/2018 Inactive This is a refill request. hydrocodone 10 mg-acetaminophen 325 mg tablet RxNorm: 166357 1-2 Tablet(s) QID as needed for pain MUST LAST 30 DAYS 05/30/2018 06/27/2018 Inactive (Response to an electronic controlled substance refill request - RxReferenceNumber: [id number]) acyclovir 800 mg tablet RxNorm: 403958 1 Tablet(s) PO 5x day 201705/22/2018 Inactive Premarin 1.25 mg tablet RxNorm: 814366 1-2 Tablet(s) PO QD 05/15/20 18 07/13/2018 Inactive cyclobenzaprine 10 mg tablet RxNorm: 477363 1 Tablet(s) PO TID as needed for muscle spasm 05/09/2018 05/08/2018 Inactive Medrol (Dustin) 4 mg tablets in a dose pack RxNorm: 753240 Tablet(s) PO As Directed 05/02/2018 06/16/2018 Inactive hydrocodone 10 mg-acetaminophen 325 mg tablet RxNorm: 853265 1-2 Tablet(s) QID as needed for pain MUST LAST 30 DAYS 04/30/2018 05/29/2018 Inactive (Response to an electronic controlled substance refill request - RxReferenceNumber: [id number]) duloxetine 60 mg capsule,delayed release RxNorm: 513849 TAKE ONE CAPSULE BY MOUTH DAILY 04/16/2018 05/15/2018 Inactive Celebrex 200 mg capsule RxNorm: 924375 TAKE ONE CAPSULE BY MOUT H TWICE A DAY 04/16/2018 06/14/2018 Inactive Singulair 10 mg tablet RxNorm: 277639 TAKE ONE TABLET BY MOUTH JOSÉ Y 04/16/2018 11/19/2018 Inactive Lipitor 10 mg tablet RxNorm: 564399 TAKE ONE TABLET BY MOUTH AT BEDTIME 04/16/2018 05/15/2018 Inactive hydrocodone 10 mg-acetaminophen 325 mg tablet RxNorm: 152803 1-2 Tablet(s) QID as needed for pain MUST LAST 30 DAYS 03/29/2018 04/27/2018 Inactive (Response to an electronic controlled substance refill request - RxReferenceNumber: [id number]) cyclobenzaprine 10 mg tablet RxNorm: 490886 1 Tablet(s) PO TID as needed for muscle spasm 03/18/2018 05/09/2018 Inactive omeprazole 40 mg capsule,delayed release RxNorm: 084009 1 Capsu le(s) PO QD 02/26/2018 08/24/2018 Inactive hydrocodone 10 mg-acetaminophen 325 mg tablet RxNorm: 785663 1-2 Tablet(s) QID as needed for pain MUST LAST 30 DAYS 02/26/2018 03/27/2018 Inactive (Response to an electronic controlled substance refill request - RxReferenceNumber: [id number]) metoprolol tartrate 100 mg tablet RxNorm: 270328 1 Tablet(s) PO BID 02/18/2018 08/05/2018 Inactive Lyrica 75 mg capsule RxNorm: 533243 1 Capsule(s) PO QHS 01/30/2018 Inactive phentermine 37.5 mg tablet RxNorm: 357451 1 Tablet(s) PO QAM 201706/16/2018 Inactive hydrocodone 10 mg-acetaminophen 325 mg tablet RxNorm: 964803 1-2 Tablet(s) QID as needed for pain MUST LAST 30 DAYS 01/29/2018 02/25/2018 Inactive (Response to an electronic controlled substance refill request - RxReferenceNumber: [id number]) Klor-Con 8 mEq tablet,extended release RxNorm: 537026 1 Tablet( s) PO BID 01/14/2018 07/04/2018 Inactive allopurinol 300 mg tablet RxNorm: 625971 1 Tablet(s) PO QD 01/15/2007/04/2018 Inactive Lipitor 10 mg tablet RxNorm: 921726 1 Tablet(s) PO QHS 01/14/201812/2017 Inactive triamterene 75 mg-hydrochlorothiazide 50 mg tablet RxNorm: 3 79530 1 Tablet(s) PO QD 01/14/2018 07/04/2018 Inactive hydrocodone 10 mg-acetaminophen 325 mg tablet RxNorm: 936213 1-2 Tablet(s) QID as needed for pain MUST LAST 30 DAYS 12/27/2017 01/25/2018 Inactive (Response to an electronic controlled substance refill request - RxReferenceNumber: [id number]) Onglyza 5 mg tablet RxNorm: 074725 1 Tablet(s) PO QD 12/18/201701/29 Inactive metformin 500 mg tablet RxNorm: 966297 1 Tablet(s) PO BID 12/11/2017 12/10/2017 Inactive metformin 500 mg tablet RxNorm: 352447 1 Tablet(s) PO BID 12/11/2017 12/17/2017 Inactive furosemide 40 mg tablet RxNorm: 257309 1 Tablet(s) PO Q AM prn edema--take with potassium 12/11/2017 06/08/2018 Inactive cyclobenzaprine 10 mg tablet RxNorm: 216103 1 Tablet(s) PO TID as needed for muscle spasm 12/11/2017 03/18/2018 Inactive hydrocodone 10 mg-acetaminophen 325 mg tablet RxNorm: 849194 1-2 Tablet(s) QID as needed for pain MUST LAST 30 DAYS 10/23/2017 11/21/2017 Inactive (Response to an electronic controlled substance refill request - RxReferenceNumber: [id number]) Lipitor 10 mg tablet RxNorm: 716448 1 Tablet(s) PO QHS 10/16/201703/2018 Inactive cyclobenzaprine 10 mg tablet RxNorm: 305060 1 Tablet(s) PO TID as needed for muscle spasm 10/09/2017 12/10/2017 Inactive hydroxyzine HCl 25 mg tablet RxNorm: 560667 1 Tablet(s) PO BID as needed for anxiety 09/20/2017 01/29/2018 Inactive Effexor XR 75 mg capsule,extended release RxNorm: 802271 1 Caps ule(s) PO QD 09/20/2017 01/29/2018 Inactive metoprolol tartrate 100 mg tablet RxNorm: 758153 1 Tablet(s) PO BID 08/20/2017 02/18/2018 Inactive baclofen 20 mg tablet RxNorm: 851253 1 Tablet(s) PO TID as needed for muscle spasm 08/20/2017 01/21/2019 Inactive clonidine HCl 0.1 mg tablet RxNorm: 613074 1 Tablet(s) PO QID 08/2005/16/2018 Inactive Seroquel 25 mg tablet RxNorm: 869298 1 Tablet(s) PO QHS 08/17/2017 Inactive Seroquel 25 mg tablet RxNorm: 495399 1 Tablet(s) PO QHS 08/17/2017 Inactive Diflucan 100 mg tablet RxNorm: 984555 TAKE ONE TABLET BY MOUTH JOSÉ Y 07/25/2017 08/07/2017 Inactive hydrocodone 10 mg-acetaminophen 325 mg tablet RxNorm: 205465 1-2 Tablet(s) QID as needed for pain MUST LAST 30 DAYS 07/19/2017 08/17/2017 Inactive (Response to an electronic controlled substance refill request - RxReferenceNumber: [id number]) clindamycin 300 mg capsule RxNorm: 644446 1 Capsule(s) PO TID 07/1907/28/2017 Inactive clotrimazole-betamethasone 1 %-0.05 % topical cream RxNorm: 495843 Application TOP BID to elbow rash 07/19/2017 06/16/2018 Inactive Singulair 10 mg tablet RxNorm: 979807 Tablet(s) TAKE ONE TABLET BY MOUTH DAILY 07/18/2017 04/13/2018 Inactive triamterene 75 mg-hydrochlorothiazide 50 mg tablet RxNorm: 3 44009 1 Tablet(s) PO QD 07/18/2017 01/14/2018 Inactive Celebrex 200 mg capsule RxNorm: 364431 Capsule(s) TAKE ONE CAPSULE BY MOUTH TWICE A DAY 07/18/2017 10/15/2017 Inactive hydrocodone 10 mg-acetaminophen 325 mg tablet RxNorm: 256438 1-2 Tablet(s) QID as needed for pain MUST LAST 30 DAYS 06/19/2017 07/18/2017 Inactive (Response to an electronic controlled substance refill request - RxReferenceNumber: [id number]) hydrocodone 10 mg-acetaminophen 325 mg tablet RxNorm: 880133 1-2 Tablet(s) QID as needed for pain MUST LAST 30 DAYS 06/19/2017 06/18/2017 Inactive (Response to an electronic controlled substance refill request - RxReferenceNumber: [id number]) baclofen 20 mg tablet RxNorm: 710631 1 Tablet(s) PO TID as needed for muscle spasm 06/18/2017 08/20/2017 Inactive Medrol (Dustin) 4 mg tablets in a dose pack RxNorm: 173450 Tablet(s) PO As Directed 06/05/2017 07/18/2017 Inactive omeprazole 40 mg capsule,delayed release RxNorm: 845650 1 Capsu le(s) PO QD 04/20/2017 10/16/2017 Inactive Premarin 1.25 mg tablet RxNorm: 531960 1-2 Tablet(s) PO QD 04/11/20 17 05/15/2018 Inactive duloxetine 60 mg capsule,delayed release RxNorm: 631275 1 Capsu le(s) PO QD 04/11/2017 09/19/2017 Inactive furosemide 40 mg tablet RxNorm: 561768 1 Tablet(s) PO Q AM prn edema--take with potassium 04/11/2017 12/11/2017 Inactive Klor-Con 8 mEq tablet,extended release RxNorm: 999567 1 Tablet( s) PO BID 04/11/2017 01/14/2018 Inactive Lipitor 10 mg tablet RxNorm: 823811 1 Tablet(s) PO QHS 04/11/201702/2018 Inactive amlodipine 5 mg-benazepril 20 mg capsule RxNorm: 564684 1 Capsu le(s) PO QD 04/11/2017 01/29/2018 Inactive allopurinol 300 mg tablet RxNorm: 964985 1 Tablet(s) PO QD 04/11/20 17 01/14/2018 Inactive clonidine HCl 0.1 mg tablet RxNorm: 264231 1 Tablet(s) PO QID 04/0508/19/2017 Inactive baclofen 20 mg tablet RxNorm: 914857 1 Tablet(s) PO TID as needed for muscle spasm 04/02/2017 06/18/2017 Inactive Premarin 1.25 mg tablet RxNorm: 614002 1-2 Tablet(s) PO QD 03/20/20 17 04/10/2017 Inactive hydrocodone 10 mg-acetaminophen 325 mg tablet RxNorm: 767125 1-2 Tablet(s) QID as needed for pain MUST LAST 30 DAYS 03/14/2017 01/21/2019 Inactive (Response to an electronic controlled substance refill request - RxReferenceNumber: [id number]) metoprolol tartrate 100 mg tablet RxNorm: 107291 1 Tablet(s) PO BID 02/12/2017 08/20/2017 Inactive hydrocodone 10 mg-acetaminophen 325 mg tablet RxNorm: 032400 1-2 Tablet(s) QID as needed for pain MUST LAST 30 DAYS 02/08/2017 03/09/2017 Inactive (Response to an electronic controlled substance refill request [id number]) metoprolol tartrate 100 mg tablet RxNorm: 287213 TAKE O NE TABLET BY MOUTH TWICE A DAY 01/11/2017 02/12/2017 Inactive metoprolol tartrate 100 mg tablet RxNorm: 338713 1 Tablet(s) PO BID 12/18/2016 12/17/2016 Inactive metoprolol tartrate 100 mg tablet RxNorm: 474963 1 Tablet(s) PO BID 12/18/2016 01/10/2017 Inactive furosemide 40 mg tablet RxNorm: 610100 1 Tablet(s) PO Q AM prn edema--take with potassium 12/13/2016 02/10/2017 Inactive amitriptyline 100 mg tablet RxNorm: 869706 1 Tablet(s) PO QHS 11/2812/12/2016 Inactive baclofen 20 mg tablet RxNorm: 378475 1 Tablet(s) PO TID as needed for muscle spasm 11/14/2016 04/01/2017 Inactive triamterene 75 mg-hydrochlorothiazide 50 mg tablet RxNorm: 3 44666 1 Tablet(s) PO QD 11/14/2016 11/13/2016 Inactive metolazone 2.5 mg tablet RxNorm: 748416 TAKE ONE TABLET BY MOUTH DAILY NEEDED FOR EDEMA 11/14/2016 12/12/2016 Inactive triamterene 75 mg-hydrochlorothiazide 50 mg tablet RxNorm: 3 98695 1 Tablet(s) PO QD 11/14/2016 07/18/2017 Inactive amitriptyline 50 mg tablet RxNorm: 951378 TAKE ONE TABL ET BY MOUTH AT BEDTIME NEEDED FOR SLEEP 11/14/2016 11/27/2016 Inactive Cymbalta 60 mg capsule,delayed release RxNorm: 437414 1 Capsule (s) PO QHS 11/14/2016 12/12/2016 Inactive clonidine HCl 0.1 mg tablet RxNorm: 446781 1 Tablet(s) PO QID 11/1304/04/2017 Inactive amitriptyline 50 mg tablet RxNorm: 250289 1 Tablet(s) P O QHS as needed for sleep 11/01/2016 11/27/2016 Inactive duloxetine 60 mg capsule,delayed release RxNorm: 407766 TAKE ONE CAPSULE BY MOUTH DAILY 10/20/2016 01/17/2017 Inactive allopurinol 300 mg tablet RxNorm: 873781 TAKE ONE TABLET BY LOPEZ TH DAILY 10/20/2016 01/16/2017 Inactive Lyrica 75 mg capsule RxNorm: 534716 TAKE ONE CAPSULE BY MOUTH EVERY NIGHT AT BEDTIME 10/20/2016 12/10/2016 Inactive Klor-Con 8 mEq tablet,extended release RxNorm: 183265 T FARRUKH ONE TABLET BY MOUTH TWICE A DAY 10/20/2016 01/17/2017 Inactive Celebrex 200 mg capsule RxNorm: 582176 TAKE ONE CAPSULE BY MOUT H TWICE A DAY 10/20/2016 07/18/2017 Inactive Bystolic 10 mg tablet RxNorm: 838557 TAKE ONE TABLET BY MOUTH EVERY NIGHT AT BEDTIME 10/20/2016 12/17/2016 Inactive amlodipine 5 mg-benazepril 20 mg capsule RxNorm: 791977 TAKE ONE CAPSULE BY MOUTH EVERY NIGHT AT BEDTIME -- TO REPLACE AMLODOPINE 10/20/20162016 Inactive Lipitor 10 mg tablet RxNorm: 558487 TAKE ONE TABLET BY MOUTH EVERY NIGHT AT BEDTIME 10/20/2016 01/17/2017 Inactive alprazolam 0.5 mg tablet RxNorm: 613699 3 Tablet(s) PO QHS as needed for sleep/anxiety 09/20/2016 10/31/2016 Inactive Tamiflu 75 mg capsule RxNorm: 939676 1 Capsule(s) PO QD 09/19/2016 Inactive Lyrica 75 mg capsule RxNorm: 153595 1 Capsule(s) PO QHS 09/19/2016 Inactive prednisone 20 mg tablet RxNorm: 258458 1 Tablet(s) PO QD 08/10/2016 1 10/17/2015 Inactive doxycycline hyclate 100 mg capsule RxNorm: 6424811 1 Capsule(s) PO BID 08/10/2016 08/19/2016 Inactive Medrol (Dustin) 4 mg tablets in a dose pack RxNorm: 972112 Tablet(s) PO As Directed 07/31/2016 08/22/2016 Inactive Singulair 10 mg tablet RxNorm: 909379 TAKE ONE TABLET BY MOUTH JOSÉ Y 07/27/2016 07/18/2017 Inactive hydrocodone 10 mg-acetaminophen 325 mg tablet RxNorm: 388636 1-2 Tablet(s) QID as needed for pain MUST LAST 30 DAYS 07/26/2016 08/24/2016 Inactive (Response to an electronic controlled substance refill request - RxReferenceNumber: [id number]) alprazolam 0.5 mg tablet RxNorm: 310992 3 Tablet(s) PO QHS as needed for anxiety or sleep 07/26/2016 09/20/2016 Inactive clindamycin 300 mg capsule RxNorm: 675863 1 Capsule(s) PO TID 07/2007/29/2016 Inactive Diflucan 100 mg tablet RxNorm: 035066 1 Tablet(s) PO QD 07/20/2016 Inactive Levaquin 500 mg tablet RxNorm: 915532 1 Tablet(s) PO QD 07/17/2016 Inactive Levaquin 500 mg tablet RxNorm: 121682 1 Tablet(s) PO QD 07/10/2016 Inactive Levaquin 500 mg tablet RxNorm: 637597 1 Tablet(s) PO QD 07/10/2016 Inactive mupirocin 2 % topical ointment RxNorm: 935564 TOP Apply topically to affected areas twice daily 07/06/2016 09/18/2016 Inactive Singulair 10 mg tablet RxNorm: 730425 TAKE ONE TABLET BY MOUTH JOSÉ Y 06/21/2016 01/21/2019 Inactive alprazolam 0.5 mg tablet RxNorm: 184543 TAKE THREE TABL ETS BY MOUTH AT BEDTIME NEEDED FOR SLEEP OR STRESS 05/22/2016 06/20/2016 Inactive triamterene 75 mg-hydrochlorothiazide 50 mg tablet RxNorm: 3 51464 1 Tablet(s) PO QD 04/26/2016 01/12/2020 Inactive Premarin 1.25 mg tablet RxNorm: 457537 1-2 Tablet(s) PO QD 04/26/20 16 03/20/2017 Inactive Klor-Con 8 mEq tablet,extended release RxNorm: 612458 1 Tablet( s) PO BID 04/26/2016 10/19/2016 Inactive Celebrex 200 mg capsule RxNorm: 800883 1 Capsule(s) PO BID TAKE ONE CAPSULE BY MOUTH EVERY DAY 04/26/2016 10/19/2016 Inactive Lipitor 10 mg tablet RxNorm: 759531 1 Tablet(s) PO QHS 04/26/201605/2017 Inactive allopurinol 300 mg tablet RxNorm: 551796 1 Tablet(s) PO QD TAKE ONE TABLET BY MOUTH EVERY DAY 04/26/2016 10/19/2016 Inactive amlodipine 5 mg-benazepril 20 mg capsule RxNorm: 011339 1 Capsule(s) PO QHS replaces amlodopine 04/26/2016 10/19/2016 Inactive duloxetine 60 mg capsule,delayed release RxNorm: 955168 1 Capsu le(s) PO QD 04/26/2016 10/19/2016 Inactive Bystolic 10 mg tablet RxNorm: 956749 1 Tablet(s) PO QHS 04/26/2016 Inactive Singulair 10 mg tablet RxNorm: 151303 1 Tablet(s) PO QD TAKE ONE TABLET BY MOUTH DAILY 04/26/2016 06/20/2016 Inactive clonidine HCl 0.1 mg tablet RxNorm: 539834 1 Tablet(s) PO QID 04/2610/22/2016 Inactive hydrocodone 10 mg-acetaminophen 325 mg tablet RxNorm: 816567 1-2 Tablet(s) QID as needed for pain TAKE ONE TO TWO TABLETS BY MOUTH FOUR TIMES A DAY . MUST LAST 30 DAYS 03/31/2016 04/29/2016 Inactive (Response to an electronic controlled substance refill request - RxReferenceNumber: [id number]) Klor-Con 8 mEq tablet,extended release RxNorm: 126924 T FARRUKH ONE TABLET BY MOUTH TWICE A DAY 03/24/2016 09/29/2019 Inactive prednisone 20 mg tablet RxNorm: 871468 1 Tablet(s) PO QD 03/09/2016 0 03/08/2016 Inactive prednisone 20 mg tablet RxNorm: 082816 1 Tablet(s) PO QD 03/09/2016 0 03/13/2016 Inactive alprazolam 0.5 mg tablet RxNorm: 413212 3 Tablet(s) PO QHS as needed for sleep/stress 03/02/2016 01/21/2019 Inactive mupirocin 2 % topical ointment RxNorm: 420151 TOP twice daily to affected areas of face and neck 02/21/2016 04/25/2016 Inactive clonidine HCl 0.1 mg tablet RxNorm: 775517 TAKE ONE TAB LET BY MOUTH FOUR TIMES A DAY 02/15/2016 09/29/2019 Inactive clonidine HCl 0.1 mg tablet RxNorm: 807139 1 Tablet(s) PO QID 02/1404/25/2016 Inactive Premarin 1.25 mg tablet RxNorm: 123793 1-2 Tablet(s) PO QD 02/15/20 16 03/15/2016 Inactive Klor-Con 8 mEq tablet,extended release RxNorm: 955589 T FARRUKH ONE TABLET BY MOUTH TWICE A DAY 02/15/2016 03/15/2016 Inactive potassium chloride ER 20 mEq tablet,extended release(part/cr yst) RxNorm: 787754 2 Tablet(s) PO BID 02/15/2016 03/15/2016 Inactive Macrobid 100 mg capsule RxNorm: 094870 1 Capsule(s) PO BID 01/24/20 16 01/30/2016 Inactive prednisone 20 mg tablet RxNorm: 713958 Take 3tabs PO QD x 2 days, then 2 tabs PO QD x 2 days, then 1 tab PO QD x 2 days, then 1/2 tab PO QDy x 2 days 12/23/2015 04/25/2016 Inactive Klor-Con 8 mEq tablet,extended release RxNorm: 144429 T FARRUKH ONE TABLET BY MOUTH TWICE A DAY 12/20/2015 02/14/2016 Inactive alprazolam 1 mg tablet RxNorm: 012288 1 1/2 Tablet(s) PO QHS 201501/23/2016 Inactive nystatin 100,000 unit/gram topical cream RxNorm: 851053 APPLY TO AFFECTED AREA(S) TWO TIMES A DAY 11/30/2015 12/14/2015 Inactive Singulair 10 mg tablet RxNorm: 747000 TAKE ONE TABLET BY MOUTH JOSÉ Y 11/18/2015 04/25/2016 Inactive allopurinol 300 mg tablet RxNorm: 666172 1 Tablet(s) PO QD TAKE ONE TABLET BY MOUTH EVERY DAY 10/26/2015 04/22/2016 Inactive Singulair 10 mg tablet RxNorm: 758733 TAKE ONE TABLET BY MOUTH JOSÉ Y 10/26/2015 11/17/2015 Inactive duloxetine 60 mg capsule,delayed release RxNorm: 569596 1 Capsu le(s) PO QD 10/26/2015 04/22/2016 Inactive triamterene 75 mg-hydrochlorothiazide 50 mg tablet RxNorm: 3 08006 1 Tablet(s) PO QD 10/26/2015 11/14/2016 Inactive potassium chloride ER 20 mEq tablet,extended release(part/cr yst) RxNorm: 209212 2 Tablet(s) PO BID 10/26/2015 02/14/2016 Inactive Lipitor 10 mg tablet RxNorm: 847253 1 Tablet(s) PO QHS 10/26/2015 Inactive amlodipine 5 mg-benazepril 20 mg capsule RxNorm: 920764 1 Capsule(s) PO QHS replaces amlodopine 10/26/2015 04/22/2016 Inactive Bystolic 10 mg tablet RxNorm: 498515 1 Tablet(s) PO QHS 10/26/2015 Inactive amlodipine 5 mg-benazepril 20 mg capsule RxNorm: 313250 1 Capsule(s) PO QHS replaces amlodopine 10/06/2015 10/25/2015 Inactive amlodipine 5 mg tablet RxNorm: 385738 1 Tablet(s) PO QHS 09/30/2015 0 04/25/2016 Inactive metolazone 2.5 mg tablet RxNorm: 362234 TAKE ONE TABLET BY MOUTH DAILY NEEDED FOR EDEMA 09/30/2015 01/21/2019 Inactive duloxetine 60 mg capsule,delayed release RxNorm: 997152 1 Capsu le(s) PO QD 09/30/2015 10/25/2015 Inactive cephalexin 500 mg capsule RxNorm: 533553 1 Capsule(s) PO BID 201509/23/2015 Inactive mupirocin 2 % topical ointment RxNorm: 320115 TOP twice daily to affected areas of face and neck 09/14/2015 02/20/2016 Inactive baclofen 20 mg tablet RxNorm: 467049 1 Tablet(s) PO TID as needed for muscle spasm 09/01/2015 11/14/2016 Inactive clonidine HCl 0.1 mg tablet RxNorm: 549416 1 Tablet(s) PO QID 09/0102/14/2016 Inactive alprazolam 1 mg tablet RxNorm: 084001 1 1/2 Tablet(s) PO QHS 201409/09/2015 Inactive baclofen 20 mg tablet RxNorm: 251860 1 Tablet(s) PO TID as needed for muscle spasm 07/23/2015 09/01/2015 Inactive omeprazole 40 mg capsule,delayed release RxNorm: 349177 1 Capsu le(s) PO QD 07/23/2015 04/25/2016 Inactive alprazolam 1 mg tablet RxNorm: 687477 1 1/2 Tablet(s) PO QHS 201408/10/2015 Inactive Bystolic 10 mg tablet RxNorm: 345247 1 Tablet(s) PO BID 06/24/2015 Inactive allopurinol 300 mg tablet RxNorm: 911228 1 Tablet(s) PO QD TAKE ONE TABLET BY MOUTH EVERY DAY 06/23/2015 10/20/2015 Inactive alprazolam 1 mg tablet RxNorm: 873405 1 1/2 Tablet(s) PO QHS 201407/06/2015 Inactive clonidine HCl 0.1 mg tablet RxNorm: 268142 1 Tablet(s) PO QID 06/0209/01/2015 Inactive clonidine HCl 0.1 mg tablet RxNorm: 792427 1 Tablet(s) PO QID 06/0206/01/2015 Inactive Cymbalta 60 mg capsule,delayed release RxNorm: 577863 1 Capsule (s) PO QHS 06/02/2015 08/30/2015 Inactive Cymbalta 60 mg capsule,delayed release RxNorm: 497338 1 Capsule (s) PO QHS 06/02/2015 06/01/2015 Inactive clonidine HCl 0.1 mg tablet RxNorm: 483637 1 Tablet(s) PO TID 05/3106/01/2015 Inactive replaces 0.2mg dose metolazone 2.5 mg tablet RxNorm: 901592 TAKE ONE TABLET BY MOUTH DAILY NEEDED FOR EDEMA 05/21/2015 06/19/2015 Inactive Singulair 10 mg tablet RxNorm: 221107 TAKE ONE TABLET BY MOUTH JOSÉ Y 05/21/2015 10/17/2015 Inactive Cymbalta 30 mg capsule,delayed release RxNorm: 676188 1 Capsule (s) PO QHS 05/20/2015 11/14/2016 Inactive betamethasone valerate 0.1 % topical cream RxNorm: 419394 Appli cation TOP BID 05/10/2015 04/25/2016 Inactive Bactroban 2 % topical ointment RxNorm: 870001 Application TOP BID 0 05/10/2015 06/20/2015 Inactive baclofen 20 mg tablet RxNorm: 323450 1 Tablet(s) PO TID as needed 0 04/26/2015 07/23/2015 Inactive Lipitor 10 mg tablet RxNorm: 698401 1 Tablet(s) PO QHS 04/26/201508/2016 Inactive clonidine HCl 0.1 mg tablet RxNorm: 468613 1 Tablet(s) PO TID 04/2605/30/2015 Inactive replaces 0.2mg dose Klor-Con 8 mEq tablet,extended release RxNorm: 893957 1 Tablet( s) PO BID 04/26/2015 04/25/2016 Inactive metolazone 2.5 mg tablet RxNorm: 931305 1 Tablet(s) PO QD as ne eded for edema 04/26/2015 04/25/2015 Inactive triamterene 75 mg-hydrochlorothiazide 50 mg tablet RxNorm: 3 01127 1 Tablet(s) PO QD 04/26/2015 10/22/2015 Inactive Premarin 1.25 mg tablet RxNorm: 647955 1-2 Tablet(s) PO QD 04/26/20 15 10/22/2015 Inactive Bystolic 10 mg tablet RxNorm: 975615 1 Tablet(s) PO QAM TAKE ONE TABLET BY MOUTH EVERY MORNING 04/23/2015 06/23/2015 Inactive clonidine HCl 0.1 mg tablet RxNorm: 571771 1 Tablet(s) PO TID 03/2304/25/2015 Inactive replaces 0.2mg dose nystatin 100,000 unit/gram topical cream RxNorm: 399906 Applica tion TOP BID 03/23/2015 06/20/2015 Inactive baclofen 20 mg tablet RxNorm: 684964 1 Tablet(s) PO TID as needed 0 03/23/2015 04/25/2015 Inactive Premarin 1.25 mg tablet RxNorm: 501160 1-2 Tablet(s) PO QD 03/23/20 15 04/25/2015 Inactive Klor-Con 8 mEq tablet,extended release RxNorm: 347524 1 Tablet( s) PO BID 03/23/2015 04/25/2015 Inactive cefdinir 300 mg capsule RxNorm: 002769 2 Capsule(s) PO QD 03/16/2015 03/25/2015 Inactive baclofen 20 mg tablet RxNorm: 916304 1 Tablet(s) PO TID as needed 0 03/02/2015 03/22/2015 Inactive allopurinol 300 mg tablet RxNorm: 407589 1 Tablet(s) PO QD TAKE ONE TABLET BY MOUTH EVERY DAY 02/22/2015 05/22/2015 Inactive Klor-Con M20 mEq tablet,extended release RxNorm: 221109 2 Tablet(s) PO BID to use with lasix 02/22/2015 06/20/2015 Inactive clonidine HCl 0.1 mg tablet RxNorm: 269000 1 Tablet(s) PO TID 02/1903/22/2015 Inactive replaces 0.2mg dose Lipitor 10 mg tablet RxNorm: 724793 1 Tablet(s) PO QHS 01/20/201506/2015 Inactive Lipitor 10 mg tablet RxNorm: 418819 1 Tablet(s) PO QHS 01/20/2015 Inactive Singulair 10 mg tablet RxNorm: 761314 1 Tablet(s) PO QD TAKE ONE TABLET BY MOUTH EVERY DAY 11/20/2014 05/18/2015 Inactive Lipitor 10 mg tablet RxNorm: 079186 1 Tablet(s) PO QHS 11/20/201408/2015 Inactive allopurinol 300 mg tablet RxNorm: 345305 1 Tablet(s) PO QD TAKE ONE TABLET BY MOUTH EVERY DAY 11/20/2014 02/16/2015 Inactive Bystolic 10 mg tablet RxNorm: 577420 1 Tablet(s) PO QAM TAKE ONE TABLET BY MOUTH EVERY MORNING 11/20/2014 04/22/2015 Inactive Klor-Con 8 mEq tablet,extended release RxNorm: 993259 1 Tablet( s) PO BID 11/20/2014 02/17/2015 Inactive baclofen 20 mg tablet RxNorm: 252838 1 Tablet(s) PO TID as needed 0 11/20/2014 01/21/2019 Inactive baclofen 20 mg tablet RxNorm: 993835 1 Tablet(s) PO TID as needed 0 10/27/2014 11/19/2014 Inactive baclofen 20 mg tablet RxNorm: 988339 1 Tablet(s) PO TID as needed 0 10/26/2014 03/01/2015 Inactive allopurinol 300 mg tablet RxNorm: 483271 1 Tablet(s) PO QD TAKE ONE TABLET BY MOUTH EVERY DAY 10/26/2014 11/20/2014 Inactive Bystolic 10 mg tablet RxNorm: 757452 1 Tablet(s) PO QAM TAKE ONE TABLET BY MOUTH EVERY MORNING 10/26/2014 11/20/2014 Inactive clonidine HCl 0.1 mg tablet RxNorm: 891101 1 Tablet(s) PO TID 09/2805/27/2019 Inactive replaces 0.2mg dose clonidine HCl 0.1 mg tablet RxNorm: 636406 1 Tablet(s) PO TID 09/2802/18/2015 Inactive replaces 0.2mg dose baclofen 20 mg tablet RxNorm: 995033 1 Tablet(s) PO TID as needed 1 11/01/2013 08/30/2014 Inactive Lipitor 10 mg tablet RxNorm: 479201 1 Tablet(s) PO QHS 08/31/2014 Inactive baclofen 20 mg tablet RxNorm: 157206 1 Tablet(s) PO TID as needed 1 11/01/2013 10/26/2014 Inactive triamterene 75 mg-hydrochlorothiazide 50 mg tablet RxNorm: 3 40969 1 Tablet(s) PO QD 08/31/2014 02/26/2015 Inactive Klor-Con 8 mEq tablet,extended release RxNorm: 428316 1 Tablet( s) PO BID 08/31/2014 11/20/2014 Inactive baclofen 20 mg tablet RxNorm: 186574 1 Tablet(s) PO TID as needed 1 09/30/2013 10/25/2014 Inactive baclofen 20 mg tablet RxNorm: 761001 1 Tablet(s) PO TID as needed 1 09/30/2013 08/31/2014 Inactive omeprazole 40 mg capsule,delayed release RxNorm: 056554 1 Capsu le(s) PO QD 07/21/2014 07/23/2015 Inactive Flonase 50 mcg/actuation nasal spray,suspension RxNorm: 8963 23 1 [place] NASAL BID 07/15/2014 04/09/2017 Inactive hydrocodone 10 mg-acetaminophen 325 mg tablet RxNorm: 773138 1-2 Tablet(s) QID as needed for pain TAKE ONE TO TWO TABLETS BY MOUTH FOUR TIMES A DAY . MUST LAST 30 DAYS 06/30/2014 07/27/2014 Inactive (Response to an electronic controlled substance refill request [id number]) baclofen 20 mg tablet RxNorm: 423796 1 Tablet(s) PO TID as needed 1 07/31/2014 Inactive Singulair 10 mg tablet RxNorm: 723351 1 Tablet(s) PO QD TAKE ONE TABLET BY MOUTH EVERY DAY 05/25/2014 11/20/2014 Inactive Bystolic 10 mg tablet RxNorm: 043729 TAKE ONE TABLET BY MOUTH E VERY MORNING 05/25/2014 09/21/2014 Inactive allopurinol 300 mg tablet RxNorm: 104496 1 Tablet(s) PO QD TAKE ONE TABLET BY MOUTH EVERY DAY 05/25/2014 10/21/2014 Inactive baclofen 20 mg tablet RxNorm: 170218 1 Tablet(s) PO TID as needed 0 05/25/2014 06/29/2014 Inactive allopurinol 300 mg tablet RxNorm: 066897 TAKE ONE TABLET BY LOPEZ TH EVERY DAY 05/25/2014 09/21/2014 Inactive Singulair 10 mg tablet RxNorm: 750889 1 Tablet(s) PO QD TAKE ONE TABLET BY MOUTH EVERY DAY 05/25/2014 05/24/2014 Inactive Bystolic 10 mg tablet RxNorm: 739426 1 Tablet(s) PO QAM TAKE ONE TABLET BY MOUTH EVERY MORNING 05/25/2014 10/21/2014 Inactive metolazone 2.5 mg tablet RxNorm: 520389 1 Tablet(s) PO QD as ne eded for edema 05/18/2014 04/25/2015 Inactive Lasix 40 mg tablet RxNorm: 902335 1 Tablet(s) PO QAM s hould take potassium supplementation with this medication 05/14/2014 05/17/2014 Inactive hydrocodone 10 mg-acetaminophen 325 mg tablet RxNorm: 367358 1-2 Tablet(s) QID as needed for pain TAKE ONE TO TWO TABLETS BY MOUTH FOUR TIMES A DAY . MUST LAST 30 DAYS 05/07/2014 06/05/2014 Inactive (Response to an electronic controlled substance refill request - RxReferenceNumber: [id number]) alprazolam 0.5 mg tablet RxNorm: 437048 TAKE ONE TABLET BY MOUTH TWICE A DAY , MUST LAST 30 DAYS 05/07/2014 05/22/2016 Inactive (Response to a n electronic controlled substance refill request - RxReferenceNumber: [id number]) diclofenac sodium 75 mg tablet,delayed release RxNorm: 88167 6 1 Tablet(s) PO BID for pain 04/24/2014 07/20/2014 Inactive Celebrex 200 mg capsule RxNorm: 758496 TAKE ONE CAPSULE BY MOUT H EVERY DAY 04/24/2014 07/20/2014 Inactive alprazolam 0.5 mg tablet RxNorm: 483447 TAKE ONE TABLET BY MOUTH TWICE A DAY , MUST LAST 30 DAYS 03/24/2014 04/22/2014 Inactive (Response to a n electronic controlled substance refill request - RxReferenceNumber: [id number]) diclofenac sodium 75 mg tablet,delayed release RxNorm: 72357 6 1 Tablet(s) PO BID for pain 03/24/2014 04/24/2014 Inactive clonidine HCl 0.1 mg tablet RxNorm: 618464 1 Tablet(s) PO TID 03/2409/28/2014 Inactive replaces 0.2mg dose Klor-Con 8 mEq tablet,extended release RxNorm: 817329 1 Tablet( s) PO BID 02/26/2014 08/31/2014 Inactive diclofenac sodium 75 mg tablet,delayed release RxNorm: 32300 6 1 Tablet(s) PO BID for pain 02/25/2014 03/24/2014 Inactive hydrocodone 10 mg-acetaminophen 325 mg tablet RxNorm: 003124 1-2 Tablet(s) QID as needed for pain TAKE ONE TO TWO TABLETS BY MOUTH FOUR TIMES A DAY . MUST LAST 30 DAYS 02/25/2014 03/26/2014 Inactive (Response to an electronic controlled substance refill request - RxReferenceNumber: [id number]) alprazolam 0.5 mg tablet RxNorm: 016897 Tablet(s) PO BI D as needed for anxiety TAKE ONE TABLET BY MOUTH TWICE A DAY , MUST LAST 30 DAYS 02/25/2014 Inactive (Response to an electronic controlled [place] bstance refill request - RxReferenceNumber: [id number]) [AttnRPh: Saving apply/adjudicate RxGRP:SG20 RxBIN:[id number] RxPCN: ID#:[id number]] alprazolam 0.5 mg tablet RxNorm: 553843 Tablet(s) TAKE ONE TABLET BY MOUTH TWICE A DAY , MUST LAST 30 DAYS 01/27/2014 02/24/2014 Inactive (Respo nse to an electronic controlled substance refill request - RxReferenceNumber: [id number]) [AttnRPh: Saving apply/adjudicate RxGRP:SG20 RxBIN:[id number] RxPCN: ID#:[id number]] hydrocodone 10 mg-acetaminophen 325 mg tablet RxNorm: 777908 1-2 Tablet(s) QID as needed for pain TAKE ONE TO TWO TABLETS BY MOUTH FOUR TIMES A DAY . MUST LAST 30 DAYS 01/27/2014 02/24/2014 Inactive (Response to an electronic controlled substance refill request - RxReferenceNumber: [id number]) alprazolam 0.5 mg tablet RxNorm: 934742 TAKE ONE TABLET BY MOUTH TWICE A DAY , MUST LAST 30 DAYS 01/27/2014 01/26/2014 Inactive (Response to a n electronic controlled substance refill request - RxReferenceNumber: [id number]) Premarin 1.25 mg tablet RxNorm: 270937 1-2 Tablet(s) PO QD 01/28/20 14 07/25/2014 Inactive alprazolam 0.5 mg tablet RxNorm: 850128 TAKE ONE TABLET BY MOUTH TWICE A DAY , MUST LAST 30 DAYS 01/27/2014 01/27/2014 Inactive (Response to a n electronic controlled substance refill request - RxReferenceNumber: [id number]) hydrocodone 10 mg-acetaminophen 325 mg tablet RxNorm: 215133 TAKE ONE TO TWO TABLETS BY MOUTH FOUR TIMES A DAY . MUST LAST 30 DAYS 01/27/20142013 Inactive (Response to an electronic controlled [place] bstance refill request - RxReferenceNumber: [id number]) Celebrex 200 mg capsule RxNorm: 972550 1 Capsule(s) PO QD TAKE ONE CAPSULE BY MOUTH EVERY DAY 12/29/2013 04/27/2014 Inactive hydrocodone 10 mg-acetaminophen 325 mg tablet RxNorm: 652632 1-2 Tablet(s) PO QID as needed for severe pain 12/29/2013 01/27/2014 Inactive allopurinol 300 mg tablet RxNorm: 271469 1 Tablet(s) PO QD TAKE ONE TABLET BY MOUTH EVERY DAY 12/29/2013 05/24/2014 Inactive alprazolam 0.5 mg tablet RxNorm: 022734 TAKE ONE TABLET BY MOUTH TWICE A DAY , MUST LAST 30 DAYS 12/29/2013 01/27/2014 Inactive (Response to a n electronic controlled substance refill request - RxReferenceNumber: [id number]) Celebrex 200 mg capsule RxNorm: 600588 1 Capsule(s) PO QD TAKE ONE CAPSULE BY MOUTH EVERY DAY 12/29/2013 12/29/2013 Inactive Bystolic 10 mg tablet RxNorm: 268375 1 Tablet(s) PO QAM TAKE ONE TABLET BY MOUTH EVERY MORNING 12/29/2013 05/24/2014 Inactive Bystolic 10 mg tablet RxNorm: 872323 1 Tablet(s) PO QAM TAKE ONE TABLET BY MOUTH EVERY MORNING 12/29/2013 12/29/2013 Inactive Singulair 10 mg tablet RxNorm: 309828 1 Tablet(s) PO QD TAKE ONE TABLET BY MOUTH EVERY DAY 12/29/2013 05/25/2014 Inactive hydrocodone 10 mg-acetaminophen 325 mg tablet RxNorm: 410883 TAKE ONE TO TWO TABLETS BY MOUTH FOUR TIMES A DAY . MUST LAST 30 DAYS 12/29/20132013 Inactive (Response to an electronic controlled [place] bstance refill request - RxReferenceNumber: [id number]) Trazadone 75mg Tablet RxNorm: 1 Tablet(s) PO QHS as needed 03/23/2014 Inactive Trazadone 75mg Tablet RxNorm: 1 Tablet(s) PO QHS 12/24/20132014 Inactive Soma 350 mg tablet RxNorm: 128444 Tablet(s) PO TAKE ON E TABLET BY MOUTH THREE TIMES A DAY NEEDED FOR MUSCLE SPASMS. THIS MUST LAST 30 DAYS BETWEEN REFILLS. 12/10/2013 12/22/2013 Inactive (Appended: Cont rolled substance eRx refill - RxReferenceNumber: [id number]) diclofenac sodium 75 mg tablet,delayed release RxNorm: 35351 6 1 Tablet(s) PO BID for pain 12/10/2013 02/24/2014 Inactive allopurinol 300 mg tablet RxNorm: 147406 1 Tablet(s) PO QD 11/20/19 14 12/29/2013 Inactive alprazolam 0.5 mg tablet RxNorm: 659858 2 Tablet(s) PO BID 11/13/19 14 12/29/2013 Inactive prn clonidine 0.1 mg tablet RxNorm: 302711 1 Tablet(s) PO TID 11/12/2013 02/09/2014 Inactive replaces 0.2mg dose Klor-Con M20 mEq tablet,extended release RxNorm: 401923 2 Tablet(s) PO BID to use with lasix 11/12/2013 05/10/2014 Inactive Singulair 10 mg tablet RxNorm: 370546 1 Tablet(s) PO QD 11/12/2013 Inactive hydrocodone 10 mg-acetaminophen 325 mg tablet RxNorm: 179983 1-2 Tablet(s) PO QID as needed for severe pain 11/12/2013 12/28/2013 Inactive Bystolic 10 mg tablet RxNorm: 982260 1 Tablet(s) PO QAM 11/12/2013 Inactive Soma 350 mg tablet RxNorm: 851568 Tablet(s) PO TAKE ON E TABLET BY MOUTH THREE TIMES A DAY NEEDED FOR MUSCLE SPASMS. THIS MUST LAST 30 DAYS BETWEEN REFILLS. 10/13/2013 12/10/2013 Inactive (Appended: Cont rolled substance eRx refill - RxReferenceNumber: [id number]) hydrocodone 10 mg-acetaminophen 325 mg tablet RxNorm: 688919 1-2 Tablet(s) PO QID as needed for severe pain 10/03/2013 11/11/2013 Inactive diclofenac sodium 75 mg tablet,delayed release RxNorm: 17443 8 1 Tablet(s) PO BID for pain 09/11/2013 12/10/2013 Inactive alprazolam 0.5 mg tablet RxNorm: 734496 1 Tablet(s) PO BID May refill on 8/1709/01/2013 10/30/2013 Inactive prn hydrocodone 10 mg-acetaminophen 325 mg tablet RxNorm: 839485 1-2 Tablet(s) PO QID as needed for severe pain 09/01/2013 10/02/2013 Inactive triamterene 75 mg-hydrochlorothiazide 50 mg tablet RxNorm: 3 74600 1 Tablet(s) PO QD 08/04/2013 08/31/2014 Inactive cyclobenzaprine 10 mg tablet RxNorm: 151624 1 Tablet(s) PO TID prn spasm 08/04/2013 08/13/2013 Inactive clonidine 0.1 mg tablet RxNorm: 360934 1 Tablet(s) PO TID 08/04/2013 11/11/2013 Inactive replaces 0.2mg dose cyclobenzaprine 10 mg tablet RxNorm: 478723 1 Tablet(s) PO TID prn spasm 07/23/2013 08/01/2013 Inactive hydrocodone 10 mg-acetaminophen 325 mg tablet RxNorm: 268772 2 1-2 Tablet(s) PO QID as needed for severe pain 06/09/2013 08/07/2013 Inactive Singulair 10 mg tablet RxNorm: 583077 1 Tablet(s) PO QD 05/29/2013 Inactive Klor-Con 8 mEq tablet,extended release RxNorm: 487613 1 Tablet( s) PO BID 05/29/2013 02/26/2014 Inactive allopurinol 300 mg tablet RxNorm: 842344 1 Tablet(s) PO QD 05/29/20 13 11/19/2013 Inactive Bystolic 10 mg tablet RxNorm: 756759 1 Tablet(s) PO QAM take one daily in the morning. 05/29/2013 11/11/2013 Inactive scopolamine 1.5 mg 72 hr Transderm Patch RxNorm: 569724 Application TD Q72H for motion sickness 05/26/2013 07/22/2013 Inactive Soma 350 mg tablet RxNorm: 969996 1 Tablet(s) PO TID as needed for spasm 05/19/2013 10/13/2013 Inactive diclofenac sodium 75 mg tablet,delayed release RxNorm: 22916 8 1 Tablet(s) PO BID for pain 05/14/2013 07/22/2013 Inactive allopurinol 300 mg tablet RxNorm: 735078 1 Tablet(s) PO QD 04/25/20 13 05/28/2013 Inactive alprazolam 0.5 mg tablet RxNorm: 839209 1 Tablet(s) PO BID May refill on 04/26/13 04/25/2013 06/23/2013 Inactive prn Celebrex 200 mg capsule RxNorm: 893998 1 Capsule(s) PO QD 04/16/2013 12/29/2013 Inactive alprazolam 0.5 mg tablet RxNorm: 937973 1 Tablet(s) PO BID May refill on 04/26/13 04/16/2013 04/24/2013 Inactive prn Soma 350 mg tablet RxNorm: 515304 1 Tablet(s) PO TID as needed for spasm 04/16/2013 No Stop Date Active Lasix 40 mg tablet RxNorm: 837418 1 Tablet(s) PO QAM s hould take potassium supplementation with this medication 04/16/2013 06/14/2013 Inactive clonidine 0.1 mg tablet RxNorm: 911197 1 Tablet(s) PO TID 04/16/2013 08/03/2013 Inactive replaces 0.2mg dose prednisone 20 mg tablet RxNorm: 825858 1 Tablet(s) PO BID 04/16/2013 04/20/2013 Inactive diclofenac sodium 75 mg tablet,delayed release RxNorm: 99317 8 1 Tablet(s) PO BID for pain 04/14/2013 05/13/2013 Inactive hydrocodone 10 mg-acetaminophen 325 mg tablet RxNorm: 333974 2 1-2 Tablet(s) PO QID as needed for severe pain 04/14/2013 No Stop Date Active Lasix 40 mg tablet RxNorm: 844711 1 Tablet(s) PO QAM s hould take potassium supplementation with this medication 03/31/2013 04/15/2013 Inactive Celebrex 200 mg capsule RxNorm: 999033 1 Capsule(s) PO QD 03/31/2013 04/15/2013 Inactive alprazolam 0.5 mg tablet RxNorm: 838601 1 Tablet(s) PO BID 03/28/20 13 04/15/2013 Inactive prn hydrocodone 10 mg-acetaminophen 325 mg tablet RxNorm: 502979 2 1-2 Tablet(s) PO QID as needed for severe pain 03/10/2013 No Stop Date Active metformin ER 500 mg 24 hr tablet,extended release RxNorm: 86 1018 1 Tablet(s) PO QD 03/06/2013 07/22/2013 Inactive clindamycin 300 mg capsule RxNorm: 475820 2 Capsule(s) PO TID 03/0503/14/2013 Inactive Zaroxolyn 2.5 mg tablet RxNorm: 656025 1 Tablet(s) PO QAM 03/05/2013 05/19/2015 Inactive amlodipine 10 mg tablet RxNorm: 914181 1 Tablet(s) PO QD 03/03/2013 0 05/25/2013 Inactive Norvasc 10 mg tablet RxNorm: 996010 1 Tablet(s) PO QD 02/28/201307/11 Inactive Celebrex 200 mg capsule RxNorm: 752257 1 Capsule(s) PO QD 02/28/2013 03/30/2013 Inactive diclofenac sodium 75 mg tablet,delayed release RxNorm: 85513 8 1 Tablet(s) PO BID for pain 02/14/2013 03/15/2013 Inactive Soma 350 mg tablet RxNorm: 105194 1 Tablet(s) PO TID as needed for spasm 02/14/2013 No Stop Date Active hydrocodone 10 mg-acetaminophen 325 mg tablet RxNorm: 415807 2 1-2 Tablet(s) PO QID as needed for severe pain 02/14/2013 No Stop Date Active Norvasc 10 mg tablet RxNorm: 383062 1 Tablet(s) PO QD 02/10/201302/09 Inactive Celebrex 200 mg capsule RxNorm: 070754 1 Capsule(s) PO QD 01/27/2013 01/26/2013 Inactive Premarin 1.25 mg tablet RxNorm: 898059 1-2 Tablet(s) PO QD 01/28/20 13 06/25/2013 Inactive alprazolam 0.5 mg tablet RxNorm: 028331 1 Tablet(s) PO BID 01/28/20 13 02/25/2013 Inactive prn amlodipine 5 mg tablet RxNorm: 676577 1 Tablet(s) PO QD 01/27/2013 Inactive Celebrex 200 mg capsule RxNorm: 084981 1 Capsule(s) PO QD 01/27/2013 02/27/2013 Inactive gabapentin 600 mg tablet RxNorm: 617820 1 Tablet(s) PO QHS 01/16/20 13 07/22/2013 Inactive Soma 350 mg tablet RxNorm: 266050 1 Tablet(s) PO TID as needed for spasm 01/15/2013 No Stop Date Active hydrocodone 10 mg-acetaminophen 325 mg tablet RxNorm: 055101 2 1-2 Tablet(s) PO QID as needed for severe pain 01/15/2013 No Stop Date Active Soma 350 mg tablet RxNorm: 291391 1 Tablet(s) PO TID as needed for spasm 01/13/2013 No Stop Date Active alprazolam 0.5 mg tablet RxNorm: 829637 1 Tablet(s) PO BID 12/31/19 13 01/26/2013 Inactive prn diclofenac sodium 75 mg tablet,delayed release RxNorm: 98663 8 1 Tablet(s) PO BID for pain 12/09/2012 01/07/2013 Inactive gabapentin 600 mg tablet RxNorm: 685374 1 Tablet(s) PO QHS 12/10/19 13 01/07/2013 Inactive hydrocodone 10 mg-acetaminophen 325 mg tablet RxNorm: 661607 2 1-2 Tablet(s) PO QID as needed for severe pain 12/02/2012 No Stop Date Active Levaquin 750 mg tablet RxNorm: 706401 1 Tablet(s) PO QD 11/21/2012 Inactive Singulair 10 mg tablet RxNorm: 367105 1 Tablet(s) PO QD 11/11/2012 Inactive clonidine 0.2 mg tablet RxNorm: 071132 1 Tablet(s) PO TID 11/11/2012 04/15/2013 Inactive alprazolam 0.5 mg tablet RxNorm: 173662 1 Tablet(s) PO BID 11/12/19 13 12/10/2012 Inactive prn Klor-Con 8 mEq tablet,extended release RxNorm: 335691 1 Tablet( s) PO BID 11/11/2012 03/04/2013 Inactive hydrocodone 10 mg-acetaminophen 325 mg tablet RxNorm: 961956 2 1-2 Tablet(s) PO QID as needed for severe pain 11/06/2012 No Stop Date Active alprazolam 0.5 mg tablet RxNorm: 338833 1 Tablet(s) PO BID 10/15/19 13 11/10/2012 Inactive prn hydrocodone-acetaminophen 10 mg-325 mg tablet RxNorm: 656238 2 1-2 Tablet(s) PO QID as needed for severe pain 10/10/2012 10/09/2012 Inactive allopurinol 300 mg tablet RxNorm: 597850 1 Tablet(s) PO QD 09/20/19 13 12/18/2012 Inactive alprazolam 0.5 mg tablet RxNorm: 775272 1 Tablet(s) PO BID 09/17/19 13 10/14/2012 Inactive prn hydrocodone-acetaminophen 10 mg-325 mg tablet RxNorm: 936798 2 1-2 Tablet(s) PO QID as needed for severe pain 08/22/2012 08/21/2012 Inactive Norvasc 10 mg tablet RxNorm: 605558 1 Tablet(s) PO QD 08/12/201201/10 Inactive Premarin 1.25 mg tablet RxNorm: 825067 1-2 Tablet(s) PO QD 07/30/20 12 12/26/2012 Inactive alprazolam 0.5 mg tablet RxNorm: 144387 1 Tablet(s) PO BID 07/29/20 12 08/27/2012 Inactive prn Klor-Con 8 mEq tablet,extended release RxNorm: 535209 1 Tablet( s) PO BID 07/29/2012 11/10/2012 Inactive hydrocodone-acetaminophen 10 mg-325 mg tablet RxNorm: 863249 2 1-2 Tablet(s) PO QID as needed for severe pain 07/29/2012 No Stop Date Active Premarin 1.25 mg tablet RxNorm: 326217 1-2 Tablet(s) PO QD 07/29/20 12 07/29/2012 Inactive clonidine 0.2 mg tablet RxNorm: 639177 1 Tablet(s) PO TID 07/29/2012 10/28/2012 Inactive ketorolac 10 mg tablet RxNorm: 594227 1 Tablet(s) PO QID prn he adache 07/18/2012 No Stop Date Active hydrocodone-acetaminophen 10 mg-325 mg tablet RxNorm: 859695 2 1-2 Tablet(s) PO QID as needed for severe pain 07/03/2012 No Stop Date Active amlodipine 5 mg tablet RxNorm: 215591 1 Tablet(s) PO QD 07/02/2012 Inactive allopurinol 300 mg tablet RxNorm: 113220 1 Tablet(s) PO QD 07/02/2009/19/2012 Inactive Celebrex 200 mg capsule RxNorm: 485540 1 Capsule(s) PO QD for j oint pain 06/26/2012 10/23/2012 Inactive diclofenac sodium 75 mg tablet,delayed release RxNorm: 32210 8 1 Tablet(s) PO BID for pain 06/19/2012 09/16/2012 Inactive hydrocodone-acetaminophen 10 mg-325 mg tablet RxNorm: 017140 2 1-2 Tablet(s) PO QID as needed for severe pain 06/10/2012 No Stop Date Active alprazolam 0.5 mg tablet RxNorm: 867259 1 Tablet(s) PO BID 06/03/20 12 07/02/2012 Inactive prn ketorolac 10 mg tablet RxNorm: 360224 1 Tablet(s) PO Q8H 05/27/2012 0 01/21/2019 Inactive as needed for headache hydrocodone-acetaminophen 10 mg-325 mg tablet RxNorm: 319834 2 1-2 Tablet(s) PO QID as needed for severe pain 05/15/2012 No Stop Date Active allopurinol 300 mg tablet RxNorm: 078189 1 Tablet(s) PO QD 05/14/20 12 06/12/2012 Inactive allopurinol 300 mg tablet RxNorm: 876759 1 Tablet(s) PO QD 05/14/20 12 05/13/2012 Inactive amlodipine 5 mg tablet RxNorm: 544167 1 Tablet(s) PO QD 05/01/2012 Inactive amlodipine 5 mg Tab RxNorm: 044477 1 Tablet(s) PO QD 05/01/201204/30 Inactive Celebrex 200 mg capsule RxNorm: 917681 1 Capsule(s) PO QD for j oint pain 05/01/2012 06/25/2012 Inactive Singulair 10 mg tablet RxNorm: 071817 1 Tablet(s) PO QD 05/01/2012 Inactive alprazolam 0.5 mg tablet RxNorm: 546625 1 Tablet(s) PO BID 05/01/2005/30/2012 Inactive prn Celebrex 200 mg Cap RxNorm: 756792 1 Capsule(s) PO QD for joint radu n 05/01/2012 04/30/2012 Inactive hydrocodone-acetaminophen 10 mg-325 mg tablet RxNorm: 950020 2 1-2 Tablet(s) PO QID as needed for severe pain 04/19/2012 No Stop Date Active Lasix 40 mg tablet RxNorm: 037930 1 Tablet(s) PO QAM s hould take potassium supplementation with this medication 04/05/2012 06/03/2012 Inactive alprazolam 0.5 mg Tab RxNorm: 358747 1 Tablet(s) PO BID 04/05/2012 Inactive prn hydrocodone-acetaminophen 10 mg-325 mg Tab RxNorm: 9122935 1-2 Tablet(s) PO QID as needed for severe pain 03/25/2012 03/24/2012 Inactive clonidine 0.2 mg Tab RxNorm: 557710 1 Tablet(s) PO TID 03/08/2012 Inactive alprazolam 0.5 mg Tab RxNorm: 062633 1 Tablet(s) PO BID 03/08/2012 Inactive prn Soma 350 mg tablet RxNorm: 765655 1 Tablet(s) PO TID for spasm 02/0903/18/2012 Inactive clonidine 0.2 mg tablet RxNorm: 762142 1 Tablet(s) PO TID 03/08/2012 07/28/2012 Inactive Celebrex 200 mg Cap RxNorm: 016015 1 Capsule(s) PO QD for joint radu n 03/01/2012 04/29/2012 Inactive amlodipine 5 mg Tab RxNorm: 689717 1 Tablet(s) PO QD 02/26/201202/24 Inactive amlodipine 5 mg Tab RxNorm: 049996 1 Tablet(s) PO QD 02/26/201204/25 Inactive Bactroban 2 % Ointment RxNorm: 683290 Application TOP QID to sores 02/23/2012 No Stop Date Active amlodipine 2.5 mg tablet RxNorm: 275243 1 Tablet(s) PO QHS 02/20/2002/25/2012 Inactive doxycycline hyclate 100 mg Cap RxNorm: 1987444 1 Capsule(s) PO BID 02/20/2012 02/29/2012 Inactive hydrocodone-acetaminophen 10 mg-325 mg Tab RxNorm: 4386985 1-2 T ablet(s) PO QID 02/08/2012 No Stop Date Active alprazolam 0.5 mg Tab RxNorm: 029351 1 Tablet(s) PO BID 02/08/2012 Inactive prn Singulair 10 mg Tab RxNorm: 430708 1 Tablet(s) PO QD 02/08/201204/30 Inactive Soma 350 mg Tab RxNorm: 538956 1 Tablet(s) PO TID for spasm 012 03/07/2012 Inactive Soma 350 mg Tab RxNorm: 530351 1 Tablet(s) PO TID for spasm 012 02/05/2012 Inactive diclofenac sodium 75 mg tablet,delayed release RxNorm: 10747 8 1 Tablet(s) PO BID for pain 02/01/2012 03/18/2012 Inactive Celebrex 200 mg Cap RxNorm: 338946 1 Capsule(s) PO QD for joint radu n 01/30/2012 02/28/2012 Inactive Lasix 40 mg Tab RxNorm: 053000 1 Tablet(s) PO QAM 01/24/2012 03/18/20 12 Inactive potassium chloride ER 20 mEq tablet,extended release(part/cr yst) RxNorm: 135683 2 Tablet(s) PO BID 01/24/2012 02/22/2012 Inactive alprazolam 0.5 mg Tab RxNorm: 761113 1 Tablet(s) PO BID 01/11/2012 Inactive prn hydrocodone-acetaminophen 10 mg-325 mg Tab RxNorm: 2696727 1-2 T ablet(s) PO QID 01/11/2012 No Stop Date Active Ambien 10 mg Tab RxNorm: 050583 1 Tablet(s) PO QHS 01/11/2012 012 Inactive Klor-Con 8 mEq Tab RxNorm: 444909 1 Tablet(s) PO BID 01/11/201201/22 Inactive diclofenac sodium 75 mg Tab, Delayed Release RxNorm: 742057 1 Tablet(s) PO BID for pain 01/10/2012 01/31/2012 Inactive Ambien 10 mg Tab RxNorm: 490518 1 Tablet(s) PO QHS 12/11/2011 012 Inactive alprazolam 0.5 mg Tab RxNorm: 710402 1 Tablet(s) PO BID 12/11/2011 Inactive prn hydrocodone 10 mg-acetaminophen 325 mg tablet RxNorm: 684441 1-2 Tablet(s) PO TID 11/28/2011 No Stop Date Active as needed for pa in - Previous quantity #240, will start dosing for #180 in April 2011 per Doctor Td. Ambien 10 mg Tab RxNorm: 552090 1 Tablet(s) PO QHS 11/09/2011 012 Inactive alprazolam 0.5 mg Tab RxNorm: 559194 1 Tablet(s) PO BID 11/09/2011 Inactive prn hydrocodone-acetaminophen 10 mg-325 mg Tab RxNorm: 4751989 1-2 T ablet(s) PO TID 11/06/2011 No Stop Date Active as needed for pain - Previous quantity #240, will start dosing for #180 in April 2011 per Doctor Td. Singulair 10 mg Tab RxNorm: 430003 1 Tablet(s) PO QD 10/13/201110/12 Inactive Singulair 10 mg Tab RxNorm: 116020 1 Tablet(s) PO QD 10/13/201102/06 Inactive hydrocodone-acetaminophen 10 mg-325 mg Tab RxNorm: 1835442 1-2 T ablet(s) PO TID 10/10/2011 10/09/2011 Inactive as needed for pain - Previous quantity #240, will start dosing for #180 in April 2011 per Doctor Td. hydrocodone-acetaminophen 10 mg-325 mg Tab RxNorm: 9173452 1-2 T ablet(s) PO TID 10/09/2011 No Stop Date Active as needed for pain - Previous quantity #240, will start dosing for #180 in April 2011 per Doctor Td. Klor-Con 8 mEq Tab RxNorm: 010680 1 Tablet(s) PO BID 10/02/201101/09 Inactive triamterene 75 mg-hydrochlorothiazide 50 mg tablet RxNorm: 3 90270 1 Tablet(s) PO QD 09/14/2011 03/06/2013 Inactive Ambien 10 mg Tab RxNorm: 034088 1 Tablet(s) PO QHS 09/14/2011 012 Inactive hydrocodone-acetaminophen 10 mg-325 mg Tab RxNorm: 5605115 1-2 T ablet(s) PO TID 09/14/2011 No Stop Date Active as needed for pain - Previous quantity #240, will start dosing for #180 in April 2011 per Doctor Td. alprazolam 0.5 mg Tab RxNorm: 377778 1 Tablet(s) PO BID 09/14/2011 Inactive prn Zithromax 500 mg Tab RxNorm: 411894 1 Tablet(s) PO QD 09/13/201109/10 Inactive prednisone 20 mg Tab RxNorm: 028842 1 Tablet(s) PO BID 08/31/2011 Inactive Ambien 10 mg Tab RxNorm: 171619 1 Tablet(s) PO QHS 08/17/2011 011 Inactive hydrocodone-acetaminophen 10 mg-325 mg Tab RxNorm: 5843333 1-2 T ablet(s) PO TID 08/17/2011 No Stop Date Active as needed for pain - Previous quantity #240, will start dosing for #180 in April 2011 per Doctor Td. clonidine 0.2 mg Tab RxNorm: 692204 1 Tablet(s) PO TID 08/17/201112/2011 Inactive Ambien 10 mg Tab RxNorm: 455745 1 Tablet(s) PO QHS 08/17/2011 019 Inactive alprazolam 0.5 mg Tab RxNorm: 464056 1 Tablet(s) PO BID 08/17/2011 Inactive prn hydrocodone-acetaminophen 10 mg-325 mg Tab RxNorm: 0619467 1-2 T ablet(s) PO TID 08/17/2011 08/16/2011 Inactive as needed for pain - Previous quantity #240, will start dosing for #180 in April 2011 per Doctor Td. Singulair 10 mg Tab RxNorm: 671673 1 Tablet(s) PO QD 08/17/201108/16 Inactive Klor-Con 8 mEq Tab RxNorm: 140044 1 Tablet(s) PO QD 08/17/20112011 Inactive alprazolam 0.5 mg Tab RxNorm: 752617 1 Tablet(s) PO BID 07/20/2011 Inactive prn Ambien 10 mg Tab RxNorm: 410528 1 Tablet(s) PO QHS 07/20/2011 012 Inactive Singulair 10 mg Tab RxNorm: 687021 1 Tablet(s) PO QD 07/20/201107/19 Inactive Premarin 1.25 mg tablet RxNorm: 880422 2 Tablet(s) PO QD 07/20/2011 0 01/21/2019 Inactive Premarin 1.25 mg tablet RxNorm: 461740 1-2 Tablet(s) PO QD 07/20/2012/16/2011 Inactive Premarin 1.25 mg Tab RxNorm: 915076 1-2 Tablet(s) PO QD 07/06/2011 Inactive alprazolam 0.5 mg Tab RxNorm: 911306 1 Tablet(s) PO BID 06/22/2011 Inactive prn alprazolam 0.5 mg Tab RxNorm: 249344 1 Tablet(s) PO BID 06/22/2011 Inactive prn Premarin 1.25 mg Tab RxNorm: 174500 1 Tablet(s) PO QD m ay do 90 day fill if desired 06/22/2011 07/05/2011 Inactive hydrocodone-acetaminophen 10 mg-325 mg Tab RxNorm: 9737283 1-2 T ablet(s) PO TID 06/22/2011 No Stop Date Active as needed for pain - Previous quantity #240, will start dosing for #180 in April 2011 per Doctor Td. clonidine 0.2 mg Tab RxNorm: 562235 1 Tablet(s) PO TID 05/25/201103/2011 Inactive triamterene-hydrochlorothiazide 75 mg-50 mg Tab RxNorm: 3108 18 1 Tablet(s) PO QD 05/25/2011 09/13/2011 Inactive alprazolam 0.5 mg Tab RxNorm: 762083 1 Tablet(s) PO BID 05/25/2011 Inactive prn hydrocodone-acetaminophen 10 mg-325 mg Tab RxNorm: 9474130 1-2 T ablet(s) PO TID 05/25/2011 No Stop Date Active as needed for pain - Previous quantity #240, will start dosing for #180 in April 2011 per Doctor dT. Robaxin-750 750 mg Tab RxNorm: 731961 2 Tablet(s) PO QHS 05/22/2011 1 Inactive prn spasm hydrocodone-acetaminophen 10 mg-325 mg Tab RxNorm: 8434089 1-2 T ablet(s) PO TID 04/26/2011 No Stop Date Active as needed for pain - Previous quantity #240, will start dosing for #180 in April 2011 per Doctor Td. alprazolam 0.5 mg Tab RxNorm: 719575 1 Tablet(s) PO BID 04/25/2011 Inactive prn Klor-Con 8 mEq Tab RxNorm: 237260 1 Tablet(s) PO QD 03/30/20112010 Inactive Klor-Con 8 mEq Tab RxNorm: 500188 1 Tablet(s) PO QD 03/29/20112010 Inactive hydrocodone-acetaminophen 10 mg-325 mg Tab RxNorm: 9393079 1-2 T ablet(s) PO TID 03/20/2011 04/25/2011 Inactive as needed for pain - Previous quantity #240, will start dosing for #180 in April 2011 per Doctor Td. alprazolam 0.5 mg Tab RxNorm: 361337 1 Tablet(s) PO BID prn 011 03/30/2011 Inactive Ambien 10 mg Tab RxNorm: 883530 1 Tablet(s) PO QHS 03/01/2011 011 Inactive cyclobenzaprine 10 mg Tab RxNorm: 603162 1 Tablet(s) PO TID 011 03/18/2012 Inactive cyclobenzaprine 10 mg Tab RxNorm: 803121 1 Tablet(s) PO TID 011 01/08/2011 Inactive cyclobenzaprine 10 mg Tab RxNorm: 842678 1 Tablet(s) PO TID 011 12/20/2010 Inactive terbinafine 250 mg Tab RxNorm: 892730 1 Tablet(s) PO QD 12/12/2010 Inactive triamterene-hydrochlorothiazide 75 mg-50 mg Tab RxNorm: 3108 18 1 Tablet(s) PO QD 12/07/2010 01/12/2020 Inactive Klor-Con 8 8 mEq Tab RxNorm: 870400 1 Tablet(s) PO QD 12/07/201001/08 Inactive Premarin 1.25 mg Tab RxNorm: 897144 2 Tablet(s) PO QD 12/07/201001/08 Inactive clonidine 0.2 mg Tab RxNorm: 999708 1 Tablet(s) PO TID 12/07/2010 Inactive hydrocodone-acetaminophen 7.5 mg-650 mg Tab RxNorm: 114780 1 Ta blet(s) PO Q4H 12/05/2010 01/21/2019 Inactive hydrocodone-acetaminophen 7.5 mg-650 mg Tab RxNorm: 378114 1 Ta blet(s) PO Q4H 10/26/2010 11/14/2010 Inactive hydrocodone-acetaminophen 7.5 mg-650 mg Tab RxNorm: 093215 1 Ta blet(s) PO Q4H 10/13/2010 10/25/2010 Inactive hydrocodone-acetaminophen 7.5 mg-650 mg Tab RxNorm: 883529 1 Ta blet(s) PO Q4H 09/15/2010 09/12/2010 Inactive alprazolam 0.5 mg Tab RxNorm: 000573 1 Tablet(s) PO BID prn 011 09/12/2010 Inactive terbinafine 250 mg Tab RxNorm: 749745 1 Tablet(s) PO QD 09/05/2010 Inactive hydrocodone-acetaminophen 7.5 mg-650 mg Tab RxNorm: 931363 1 Ta blet(s) PO Q4H 08/29/2010 09/17/2010 Inactive alprazolam 0.5 mg Tab RxNorm: 166264 1 Tablet(s) PO BID prn 010 09/27/2010 Inactive alprazolam 0.5 mg Tab RxNorm: 806046 1 Tablet(s) PO BID prn 010 09/06/2010 Inactive Klor-Con 8 mEq Tab RxNorm: 261981 1 Tablet(s) PO QD 08/08/20102010 Inactive hydrocodone-acetaminophen 7.5 mg-650 mg Tab RxNorm: 165070 1 Ta blet(s) PO Q4H 08/08/2010 08/27/2010 Inactive Ambien 10 mg Tab RxNorm: 485877 1 Tablet(s) PO QHS 08/08/2010 Inactive clonidine 0.2 mg Tab RxNorm: 605355 1 Tablet(s) PO TID 08/08/2010 Inactive Premarin 1.25 mg Tab RxNorm: 776905 2 Tablet(s) PO QD 08/08/201009/12 Inactive Ambien 10 mg Tab RxNorm: 014331 1 Tablet(s) PO QHS 07/18/2010 Inactive alprazolam 0.5 mg Tab RxNorm: 642813 1 Tablet(s) PO BID prn 010 08/07/2010 Inactive hydrocodone-acetaminophen 7.5 mg-650 mg Tab RxNorm: 697008 1 Ta blet(s) PO Q4H 07/12/2010 07/31/2010 Inactive clonidine 0.2 mg Tab RxNorm: 113789 1 Tablet(s) PO TID 06/20/2010 Inactive terbinafine 250 mg Tab RxNorm: 440187 1 Tablet(s) PO QD 05/24/2010 Inactive Clonidine 0.2 mg Tab RxNorm: 512502 1 Tablet(s) PO TID 05/24/201006/2010 Inactive Ambien 10 mg Tab RxNorm: 207496 1 Tablet(s) PO QHS 05/24/2010 Inactive alprazolam 0.5 mg Tab RxNorm: 591251 1 Tablet(s) PO BID 05/24/2010 Inactive Klor-Con 8 mEq Tab RxNorm: 989821 1 Tablet(s) PO QD 05/24/20102009 Inactive alprazolam 0.5 mg Tab RxNorm: 527348 2 Tablet(s) PO QD prn 05/24/20 10 07/17/2010 Inactive triamterene-hydrochlorothiazide 75 mg-50 mg Tab RxNorm: 3108 18 1 Tablet(s) PO QD 05/24/2010 11/19/2010 Inactive Ambien 10 mg Tab RxNorm: 942470 1 Tablet(s) PO QHS 05/23/2010 010 Inactive Alprazolam 0.5 mg Tab RxNorm: 706405 2 Tablet(s) PO QD prn 05/23/20 10 05/23/2010 Inactive Premarin 1.25 mg Tab RxNorm: 624901 2 Tablet(s) PO QD 05/19/201007/12 Inactive Hydrocodone-Acetaminophen 7.5 mg-650 mg Tab RxNorm: 212669 1 Ta blet(s) PO Q4H 05/19/2010 03/20/2011 Inactive Prednisone 20 mg Tab RxNorm: 969894 1 Tablet(s) PO BID 05/17/2010 Inactive Prednisone 20 mg Tab RxNorm: 917896 1 Tablet(s) PO BID 05/06/201001/2010 Inactive Premarin 1.25 mg Tab RxNorm: 556797 Tablet(s) PO 2 M-W-F, and 1 Mr-Oj-Rlq-Sun 05/05/2010 08/02/2010 Inactive Premarin 1.25 mg Tab RxNorm: 521099 Tablet(s) PO 2 M-W-F, and 1 Da-Nv-Xfk-Sun 05/04/2010 05/04/2010 Inactive Premarin 1.25 mg Tab RxNorm: 605967 Tablet(s) PO 2 M-W-F, and 1 Wc-Bc-Tcr-Sun 05/04/2010 05/03/2010 Inactive Prednisone 20 mg Tab RxNorm: 877134 1 Tablet(s) PO BID 04/27/2010 Inactive Alprazolam 0.5 mg Tab RxNorm: 570491 2 Tablet(s) PO QD prn 04/26/20 10 05/22/2010 Inactive Clindamycin 300 mg Cap RxNorm: 986629 2 Capsule(s) PO TID 04/05/2010 04/18/2010 Inactive Terbinafine 250 mg Tab RxNorm: 435609 1 Tablet(s) PO QD 04/04/2010 Inactive Hydrocodone-Acetaminophen 7.5 mg-650 mg Tab RxNorm: 653549 1 Ta blet(s) PO Q4H 03/30/2010 04/18/2010 Inactive Avelox 400 mg Tab RxNorm: 288409 1 Tablet(s) PO QD 03/09/2010 010 Inactive Hydrocodone-Acetaminophen 7.5 mg-650 mg Tab RxNorm: 838517 1 Ta blet(s) PO Q4H 03/08/2010 03/27/2010 Inactive Alprazolam 0.5 mg Tab RxNorm: 758793 2 Tablet(s) PO QD prn 03/08/2004/25/2010 Inactive Klor-Con 8 mEq Tab RxNorm: 260059 1 Tablet(s) PO QD when takes lasi x 03/07/2010 09/29/2019 Inactive Premarin 1.25 mg Tab RxNorm: 671002 1 Tablet(s) PO QD 03/03/201003/11 Inactive Alprazolam 0.5 mg Tab RxNorm: 524638 1 Tablet(s) PO BID PRN 010 No Stop Date Active triamterene-hydrochlorothiazide 75 mg-50 mg Tab RxNorm: 3108 18 1 Tablet(s) PO QD 02/09/2010 02/03/2011 Inactive Hydrocodone-Acetaminophen 10 mg-750 mg Tab RxNorm: 837744 1 Tablet(s) PO Q4H PRN 02/09/2010 03/20/2011 Inactive Clonidine 0.2 mg Tab RxNorm: 724880 1 Tablet(s) PO TID 01/13/201009/2009 Inactive Alprazolam 0.5 mg Tab RxNorm: 041866 1 Tablet(s) PO BID PRN 010 01/12/2010 Inactive Hydrocodone-Acetaminophen 10 mg-750 mg Tab RxNorm: 599331 1 Tablet(s) PO Q4H PRN 01/13/2010 01/12/2010 Inactive ANGELIQ 1 mg-0.5 mg Tab RxNorm: 4031237 1 Tablet(s) PO QD 12/27/2009 01/23/2010 Inactive Lasix 40 mg Tab RxNorm: 087566 1 Tablet(s) PO QAM 12/14/2009 06/11/20 10 Inactive Vitamin B12 1000mcg Tablet RxNorm: 1 Tablet(s) PO QD No Start Date Active cyclobenzaprine 10 mg tablet RxNorm: 720365 1 Tablet(s) PO TID as needed DO NOT USE WITH BACLOFEN No Start Date Active Vitamin D 5,000 unit Tab RxNorm: 1 Tablet(s) PO QD No Start Date Active vitamin E (dl, acetate) 400 unit Cap RxNorm: 696099 1 Capsule(s ) PO QD No Start Date Active Benadryl 25 mg Cap RxNorm: 5585160 Capsule(s) PO PRN No Start Date Inactive amitriptyline 100 mg tablet RxNorm: 752396 1 Tablet(s) PO QHS No St art Date 11/27/2016 Inactive Zithromax Z-Dustin 250 mg tablet RxNorm: 308251 Tablet(s) PO as di rected No Start Date 07/22/2013 Inactive Klor-Con 8 mEq tablet,extended release RxNorm: 344219 1 Tablet( s) PO BID No Start Date 07/28/2012 Inactive scopolamine 1.5 mg 72 hr Transderm Patch RxNorm: 039191 Application TD Q72H for motion sickness No Start Date 05/25/2013 Inactive Klonopin 1 mg tablet RxNorm: 771454 1-2 Tablet(s) PO QHS as nee ded for sleep No Start Date 06/20/2015 Inactive Klor-Con M20 mEq tablet,extended release RxNorm: 961683 2 Tablet(s) PO BID to use with lasix No Start Date 11/11/2013 Inactive Bystolic 5 mg tablet RxNorm: 764146 1 Tablet(s) PO QD No Start Date 1 Inactive Bystolic 10 mg tablet RxNorm: 513934 1 Tablet(s) PO BID No Start Da te 07/06/2015 Inactive Premarin 1.25 mg Tab RxNorm: 352775 Tablet(s) PO 2 -W-, and 1 Qg-Dj-Mto-Sun No Start Date 05/03/2010 Inactive baclofen 20 mg tablet RxNorm: 501251 1 Tablet(s) PO TID as needed for muscle spasm No Start Date 07/22/2015 Inactive hydrocodone-acetaminophen 7.5 mg-650 mg Tab RxNorm: 189185 1 Tablet(s) PO Q4H as needed for pain No Start Date 03/20/2011 Inactive albuterol sulfate 1.25 mg/3 mL Neb Solution RxNorm: 761521 1 Unit Dose INH Q4H 2boxes No Start Date 09/06/2015 Inactive Butrans 20 mcg/hour Transderm Patch RxNorm: 572992 1 TD WEEKLY apply to skin weekly after removing previous. No Start Date 07/22/2013 Inactive Medrol (Dustin) 4 mg tablets in a dose pack RxNorm: 405047 Tablet(s) PO As Directed No Start Date 07/30/2016 Inactive hydrocodone-acetaminophen 10 mg-325 mg Tab RxNorm: 9271615 1-2 Tablet(s) PO TID as needed for pain No Start Date 03/19/2011 Inactive Klonopin 1 mg tablet RxNorm: 267143 1 Tablet(s) PO QHS No Start Date 02/28/2016 Inactive honey topical RxNorm: topical No Start Date 06/16/2018 Inactive Clonidine 0.2 mg Tab RxNorm: 062089 1 Tablet(s) PO TID No Start Date 01/12/2010 Inactive ketorolac 10 mg tablet RxNorm: 406636 1 Tablet(s) PO Q8H No Start D ate 03/18/2012 Inactive as needed for headache Singulair 10 mg Tab RxNorm: 827331 1 Tablet(s) PO QD No Start Date Inactive Premarin 1.25 mg Tab RxNorm: 029241 1 Tablet(s) PO QD No Start Date 1 Inactive Flonase 50 mcg/Actuation Nasal [place] RxNorm: 0827107 1 [place] BID No Start Date 03/18/2012 Inactive Terbinafine 250 mg Tab RxNorm: 954558 1 Tablet(s) PO QD No Start Da te 04/03/2010 Inactive Fexofenadine 180 mg Tab RxNorm: 5227477 1 Tablet(s) PO QD No Start Date 09/06/2015 Inactive baclofen 20 mg tablet RxNorm: 406525 1 Tablet(s) PO TID as needed N o Start Date 05/25/2014 Inactive Diovan 160 mg Tab RxNorm: 544010 1 Tablet(s) PO QD No Start Date 09/12 Inactive mupirocin 2 % topical ointment RxNorm: 143140 1 Application TOP QID No Start Date 04/25/2016 Inactive ZOFRAN ODT 4 mg Tab, Rapid Dissolve RxNorm: 730595 1 Tablet(s) PO Q4H No Start Date 03/18/2012 Inactive as needed for nausea and vomiting Alprazolam 0.5 mg Tab RxNorm: 763889 1 Tablet(s) PO BID PRN No Star t Date 01/12/2010 Inactive cyclobenzaprine 10 mg tablet RxNorm: 161253 1 Tablet(s) PO TID as needed for muscle spasm No Start Date 10/08/2017 Inactive Albuterol 0.083% Aerosol Solution RxNorm: 1 Appl ication INH Q4H Use one ampule every 4 hrs with nebulizer as needed for shortness of breath. No Start Date 10/09/2010 Inactive lorazepam 1 mg tablet RxNorm: 211170 1 1/2 Tablet(s) PO QHS No Star t Date 02/02/2016 Inactive Melatonin 3 mg Tab RxNorm: 158838 Tablet(s) PO PRN No Start Date 07/11 Inactive Medrol (Dustin) 4 mg Tabs in a Dose Pack RxNorm: 588418 Tablet(s) PO N o Start Date 11/28/2010 Inactive lorazepam 1 mg tablet RxNorm: 985559 1 Tablet(s) PO QHS as need ed for sleep No Start Date 01/30/2016 Inactive hydrocodone-acetaminophen 10 mg-325 mg Tab RxNorm: 1693072 1-2 Tablet(s) PO QID as needed for severe pain No Start Date 03/24/2012 Inactive celecoxib 200 mg capsule RxNorm: 464649 1 Capsule(s) PO BID No Star t Date 06/26/2019 Inactive amlodipine 5 mg-benazepril 20 mg capsule RxNorm: 616004 1 Capsu le(s) PO QD No Start Date 04/10/2017 Inactive Bystolic 20 mg tablet RxNorm: 324839 1/2 Tablet(s) PO QAM No Start Date 01/23/2016 Inactive Bystolic 20 mg tablet RxNorm: 159136 1 Tablet(s) PO QAM No Start Da te 04/25/2016 Inactive Ambien 10 mg Tab RxNorm: 225308 1 Tablet(s) PO QHS No Start Date 05/11 Inactive Klor-Con 8 mEq Tab RxNorm: 153307 1 Tablet(s) PO QD when takes lasix No Start Date 03/06/2010 Inactive aspirin 81 mg tablet RxNorm: 814453 1 Tablet(s) PO QD No Start Date 0 01/29/2018 Inactive hydrocodone-acetaminophen 10 mg-325 mg Tab RxNorm: 3619843 1-2 T ablet(s) PO QID No Start Date 01/10/2012 Inactive Bystolic 10 mg tablet RxNorm: 633007 1 Tablet(s) PO QAM take one daily in the morning. No Start Date 05/28/2013 Inactive nystatin 100,000 unit/mL Oral Susp RxNorm: 326466 5 Milliliter( s) PO QID No Start Date 03/18/2012 Inactive swish and spit scopolamine 1.5 mg 72 hr Transderm Patch RxNorm: 144476 1 Unit Dose TD Q72H for motion sickness No Start Date 12/23/2013 Inactive Hydrocodone-Acetaminophen 10 mg-750 mg Tab RxNorm: 443033 1 Tablet(s) PO Q4H PRN No Start Date 01/12/2010 Inactive Soma 350 mg tablet RxNorm: 047593 1 Tablet(s) PO TID as needed for spasm No Start Date 01/12/2013 Inactive baclofen 10 mg tablet RxNorm: 133267 1 Tablet(s) PO TID as needed for muscle spasm No Start Date 09/18/2019 Inactive Soma 350 mg Tab RxNorm: 487927 1 Tablet(s) PO TID for spasm No Star t Date 01/31/2012 Inactive Co Q-10 400 mg capsule RxNorm: 496300 1 Capsule(s) PO QD No Start D ate 01/21/2019 Inactive nystatin 100,000 unit/gram topical cream RxNorm: 309061 Applica tion TOP BID No Start Date 03/22/2015 Inactive Exforge 5 mg-160 mg Tab RxNorm: 253394 1 Tablet(s) PO QD No Start D ate 10/09/2010 Inactive Hydrocodone-Acetaminophen 7.5 mg-650 mg Tab RxNorm: 182884 1 Ta blet(s) PO Q4H No Start Date 03/07/2010 Inactive Robaxin-750 750 mg Tab RxNorm: 371259 1-2 Tablet(s) PO TID prn spasm No Start Date 05/21/2011 Inactive amlodipine 5 mg tablet RxNorm: 620880 1 Tablet(s) PO QHS No Start D ate 09/29/2015 Inactive oxycodone-acetaminophen 10 mg-325 mg tablet RxNorm: 6074277 1-2 Tablet(s) PO Q6H No Start Date 06/16/2018 Inactive Triamterene-Hydrochlorothiazide 75 mg-50 mg Tab RxNorm: 3108 18 1 Tablet(s) PO QD No Start Date 02/08/2010 Inactive Alprazolam 0.5 mg Tab RxNorm: 222220 2 Tablet(s) PO QD prn No Start Date 03/07/2010 Inactive Bystolic 20 mg tablet RxNorm: 520257 1 Tablet(s) PO QAM No Start Da te 08/17/2015 Inactive ketorolac 10 mg tablet RxNorm: 060884 1 Tablet(s) PO QID prn he adache No Start Date 07/17/2012 Inactive acyclovir 800 mg Tab RxNorm: 601412 1 Tablet(s) PO BID No Start Date 03/18/2012 Inactive duloxetine 60 mg capsule,delayed release RxNorm: 952167 1 Capsu le(s) PO QD No Start Date 09/29/2015 Inactive Norvasc 5 mg tablet RxNorm: 897493 1 Tablet(s) PO QHS No Start Date 1 10/18/2014 Inactive promethazine 25 mg tablet RxNorm: 932260 1 Tablet(s) PO Q8H use sparingly No Start Date 07/22/2013 Inactive alprazolam 0.5 mg tablet RxNorm: 516462 3 Tablet(s) PO QHS No Start Date 06/06/2015 Inactive Lunesta 3 mg tablet RxNorm: 822332 1 Tablet(s) PO QHS No Start Date 0 09/20/2017 Inactive hydrocodone-acetaminophen 10 mg-325 mg Tab RxNorm: 8383918 1-2 Tablet(s) PO TID as needed for pain No Start Date 12/10/2011 Inactive Coricidin HBP Cough & Cold 4 mg-30 mg Tab RxNorm: 6988844 Tablet (s) PO PRN No Start Date 10/09/2010 Inactive Bactroban 2 % Ointment RxNorm: 675094 Application TOP QID to so res No Start Date 02/22/2012 Inactive Flonase 50 mcg/actuation Nasal [place] RxNorm: 532299 2 [place] QHS No Start Date 03/03/2014 Inactive Medication Administered No Medication Administered data Immunizations Vaccine Codes Date Status Tetanus, Diptheria, Pertussis CVX: 115 02/27/2014 Results Observation Observation Code Item Item Code Result Date S ervice Location MEAN GLUC 7568230 Calc Mean Gluc 209 mg/dL 02/12/2020 Unkn own GLYCOSYLATED HEMOGLOBIN TEST 17304 Hgb A1c 06359-2 8.9 % 0 02/12/2020 Unknown GFR CALC 4200971 GFR Non Afr Amr >60 mL/min 02/12/2020 Un known GFR CALC 5368023 GFR Afr Amr >60 mL/min 02/12/2020 Unknow n COMPREHENSIVE METABOLIC 87595 AST 27 U/L 2019 Unknown COMPREHENSIVE METABOLIC 57484 ALT 16 U/L 2019 Unknown COMPREHENSIVE METABOLIC 94556 BUN 22 mg/dL 2019 Unknown COMPREHENSIVE METABOLIC 73070 ALBUMIN 3.9 g/dL 2019 Unknown COMPREHENSIVE METABOLIC 99295 CHLORIDE 98 mmol/L 2019 Unknown COMPREHENSIVE METABOLIC 09741 Bili Total 0.5 mg/dL 02/11 Unknown COMPREHENSIVE METABOLIC 51594 ALK PHOS 72 U/L 2019 Unknown COMPREHENSIVE METABOLIC 22478 SODIUM 137 mmol/L 02/11 Unknown COMPREHENSIVE METABOLIC 24520 CREATININE 0.96 mg/dL 12/2019 Unknown COMPREHENSIVE METABOLIC 63859 CALCIUM 9.1 mg/dL 2019 Unknown COMPREHENSIVE METABOLIC 39845 POTASSIUM 4.6 mmol/L 02/11 Unknown COMPREHENSIVE METABOLIC 43776 Total Protein 6.5 g/dL Unknown COMPREHENSIVE METABOLIC 63568 Glucose 129 mg/dL 2019 Unknown COMPREHENSIVE METABOLIC 50067 Bicarbonate 31 mmol/L 12/2019 Unknown COMPREHENSIVE METABOLIC 24826 AGAP 8 mmol/L 2019 Unknown COMPREHENSIVE METABOLIC 49815 AST 15 U/L 2019 Unknown COMPREHENSIVE METABOLIC 28015 ALT 13 U/L 2019 Unknown COMPREHENSIVE METABOLIC 22028 BUN 12 mg/dL 2019 Unknown COMPREHENSIVE METABOLIC 35485 ALBUMIN 3.9 g/dL 2019 Unknown COMPREHENSIVE METABOLIC 90044 CHLORIDE 97 mmol/L 2019 Unknown COMPREHENSIVE METABOLIC 30049 Bili Total 0.4 mg/dL 09/29 Unknown COMPREHENSIVE METABOLIC 82515 ALK PHOS 130 U/L 2019 Unknown COMPREHENSIVE METABOLIC 27710 SODIUM 136 mmol/L 09/29 Unknown COMPREHENSIVE METABOLIC 20811 CREATININE 0.92 mg/dL 09/11 Unknown COMPREHENSIVE METABOLIC 97822 CALCIUM 9.1 mg/dL 2019 Unknown COMPREHENSIVE METABOLIC 11628 POTASSIUM 4.4 mmol/L 09/29 Unknown COMPREHENSIVE METABOLIC 49537 Total Protein 6.2 g/dL Unknown COMPREHENSIVE METABOLIC 61237 Glucose 391 mg/dL 2019 Unknown COMPREHENSIVE METABOLIC 49279 Bicarbonate 30 mmol/L 09/11 Unknown COMPREHENSIVE METABOLIC 49198 AGAP 9 mmol/L 2019 Unknown ME[facility] GLUC 7444296 Calc Mean Gluc 332 mg/dL 09/29/2019 Unkn own COMPLETE BLOOD COUNT [id number] WBC 7.0 10e9/L 09/29/19 Unknown COMPLETE BLOOD COUNT [id number] RBC 4.69 10e12/L 2019 Unknown COMPLETE BLOOD COUNT [id number] HEMOGLOBIN 14.6 g/dL 09/29/19 Unknown COMPLETE BLOOD COUNT [id number] HEMATOCRIT 45.2 % 09/29/19 Unknown COMPLETE BLOOD COUNT [id number] MCV 96.4 fL 0 Unknown COMPLETE BLOOD COUNT [id number] MCH 31.1 pg 0 Unknown COMPLETE BLOOD COUNT 0363499 MCHC 32.3 g/dL 0 Unknown COMPLETE BLOOD COUNT [id number] PLATELET COUNT 209 10e9/L Unknown COMPLETE BLOOD COUNT 1908286 Mean Plt Volume 9.8 fL Unknown COMPLETE BLOOD COUNT [id number] Neut Auto 48.1 % 0 Unknown COMPLETE BLOOD COUNT [id number] Lymph Auto 36.5 % 09/29/19 Unknown COMPLETE BLOOD COUNT [id number] Jay Auto 8.6 % 0 Unknown COMPLETE BLOOD COUNT 9772910 RDW 13.4 % 0 Unknown COMPLETE BLOOD COUNT [id number] Eos Auto 6.5 % 0 Unknown COMPLETE BLOOD COUNT 8395912 Baso Auto 0.3 % 0 Unknown COMPLETE BLOOD COUNT [id number] Neutrophil Abs 3.37 10e9/L Unknown COMPLETE BLOOD COUNT [id number] Lymphocyte Abs 2.56 10e9/L Unknown COMPLETE BLOOD COUNT [id number] Monocyte Abs 0.60 10e9/L 09/11 Unknown COMPLETE BLOOD COUNT [id number] Eosinophil Abs 0.46 10e9/L Unknown COMPLETE BLOOD COUNT [id number] RDW-SD 45.9 fL 0 Unknown COMPLETE BLOOD COUNT [id number] Basophil Abs 0.02 10e9/L 09/11 Unknown LIPID GROUP 90577 Cholesterol 248 mg/dL 09/29/2019 Unkno wn LIPID GROUP 74317 Triglyceride 898 mg/dL 09/29/2019 Unkn own LIPID GROUP 99901 HDL CHOLESTEROL 41 mg/dL 09/29/2019 U nknown LIPID GROUP 72858 Chol/HDL Ratio 6.05 ratio 09/29/2019 U nknown LIPID GROUP 57230 NON-HDL Chol 207 mg/dL 09/29/2019 Unkn own LIPID GROUP 95583 LDL Cholesterol N/A Trig >400 020 Unknown GLYCOSYLATED HEMOGLOBIN TEST 74697 Hgb A1c 97155-1 13.2 % 0 09/29/2019 Unknown FREE T4 85523 T4 Free 0.75 ng/dL 09/29/2019 Unknown GFR CALC 9723259 GFR Non Afr Amr >60 mL/min 09/29/2019 Un known GFR CALC 9655888 GFR Afr Amr >60 mL/min 09/29/2019 Unknow n THYROID STIMULATING HORMONE 43225 TSH 4.245 uIU/mL 09/29/2019 Unknown COMPLETE BLOOD COUNT [id number] WBC 10.7 10e9/L 018 Unknown COMPLETE BLOOD COUNT [id number] RBC 4.59 10e12/L 2017 Unknown COMPLETE BLOOD COUNT 9651839 HEMOGLOBIN 14.8 g/dL 12/11/19 18 Unknown COMPLETE BLOOD COUNT 6692817 HEMATOCRIT 44.9 % 12/11/19 18 Unknown COMPLETE BLOOD COUNT [id number] MCV 97.8 fL 8 Unknown COMPLETE BLOOD COUNT 1049833 MCH 32.2 pg 8 Unknown COMPLETE BLOOD COUNT 8275056 MCHC 33.0 g/dL 8 Unknown COMPLETE BLOOD COUNT 9432515 PLATELET COUNT 261 10e9/L 10/2017 Unknown COMPLETE BLOOD COUNT 0404885 Mean Plt Volume 9.5 fL 10/2017 Unknown COMPLETE BLOOD COUNT 0225898 Neut Auto 59.9 % 8 Unknown COMPLETE BLOOD COUNT [id number] Lymph Auto 27.4 % 12/11/19 18 Unknown COMPLETE BLOOD COUNT 0227536 Jay Auto 8.2 % 8 Unknown COMPLETE BLOOD COUNT 5985001 RDW 13.3 % 8 Unknown COMPLETE BLOOD COUNT 4758586 Eos Auto 4.1 % 8 Unknown COMPLETE BLOOD COUNT 7568764 Baso Auto 0.4 % 8 Unknown COMPLETE BLOOD COUNT [id number] Neutrophil Abs 6.41 10e9/L Unknown COMPLETE BLOOD COUNT [id number] Lymphocyte Abs 2.93 10e9/L Unknown COMPLETE BLOOD COUNT [id number] Monocyte Abs 0.88 10e9/L 10/2017 Unknown COMPLETE BLOOD COUNT 1114155 Eosinophil Abs 0.44 10e9/L Unknown COMPLETE BLOOD COUNT [id number] RDW-SD 46.2 fL 8 Unknown COMPLETE BLOOD COUNT [id number] Basophil Abs 0.04 10e9/L 10/2017 Unknown THYROID STIMULATING HORMONE 92776 TSH 4.015 uIU/mL 12/10/2017 Unknown COMPREHENSIVE METABOLIC 41320 AST 25 U/L 2017 Unknown COMPREHENSIVE METABOLIC 06720 ALT 17 U/L 2017 Unknown COMPREHENSIVE METABOLIC 37912 BUN 19 mg/dL 2017 Unknown COMPREHENSIVE METABOLIC 31547 ALBUMIN 4.0 g/dL 2017 Unknown COMPREHENSIVE METABOLIC 74803 CHLORIDE 91 mmol/L 2017 Unknown COMPREHENSIVE METABOLIC 61231 Bili Total 0.5 mg/dL 12/10 Unknown COMPREHENSIVE METABOLIC 12581 ALK PHOS 75 U/L 2017 Unknown COMPREHENSIVE METABOLIC 09301 SODIUM 136 mmol/L 12/10 Unknown COMPREHENSIVE METABOLIC 83224 CREATININE 1.05 mg/dL 10/2017 Unknown COMPREHENSIVE METABOLIC 22406 CALCIUM 8.9 mg/dL 2017 Unknown COMPREHENSIVE METABOLIC 45412 POTASSIUM 3.4 mmol/L 12/10 Unknown COMPREHENSIVE METABOLIC 58328 Total Protein 6.5 g/dL Unknown COMPREHENSIVE METABOLIC 69703 Glucose 138 mg/dL 2017 Unknown COMPREHENSIVE METABOLIC 85477 Bicarbonate 35 mmol/L 10/2017 Unknown COMPREHENSIVE METABOLIC 31564 AGAP 10 mmol/L 2017 Unknown [facility] GLUC 7020467 Calc Mean Gluc 171 mg/dL 12/10/2017 Unkn own LIPID GROUP 20049 Cholesterol 204 mg/dL 12/10/2017 Unkno wn LIPID GROUP 66131 Triglyceride 411 mg/dL 12/10/2017 Unkn own L[facility] 53043 HDL CHOLESTEROL 50 mg/dL 12/10/2017 U nknown LIP[facility] GROUP 25440 Chol/HDL Ratio 4.08 ratio 12/10/2017 U nknown LIP[facility] GROUP 20271 NON-HDL Chol 154 mg/dL 12/10/2017 Unkn own LIPID GROUP 53368 LDL Cholesterol N/A Trig >400 018 Unknown GLYCOSYLATED HEMOGLOBIN TEST 05741 Hgb A1c 37883-2 7.6 % 0 12/10/2017 Unknown FREE T4 55429 T4 Free 1.40 ng/dL 12/10/2017 Unknown GFR CALC 9099001 GFR Non Afr Amr 55 mL/min 12/10/2017 Unk nown GFR CALC 1737466 GFR Afr Amr >60 mL/min 12/10/2017 Unknow n GFR CALC 7014342 GFR Non Afr Amr 48 mL/min 06/28/2017 Unk nown GFR CALC 9290652 GFR Afr Amr 59 mL/min 06/28/2017 Unknown COMPREHENSIVE METABOLIC 85737 AST 32 U/L 2016 Unknown COMPREHENSIVE METABOLIC 73932 ALT 22 U/L 2016 Unknown COMPREHENSIVE METABOLIC 63279 BUN 23 mg/dL 2016 Unknown COMPREHENSIVE METABOLIC 02323 ALBUMIN 4.7 g/dL 2016 Unknown COMPREHENSIVE METABOLIC 95910 CHLORIDE 89 mmol/L 2016 Unknown COMPREHENSIVE METABOLIC 69674 Bili Total 0.5 mg/dL 06/28 Unknown COMPREHENSIVE METABOLIC 95458 ALK PHOS 90 U/L 2016 Unknown COMPREHENSIVE METABOLIC 29282 SODIUM 135 mmol/L 06/28 Unknown COMPREHENSIVE METABOLIC 52223 CREATININE 1.18 mg/dL 06/10 Unknown COMPREHENSIVE METABOLIC 31729 CALCIUM 9.7 mg/dL 2016 Unknown COMPREHENSIVE METABOLIC 10156 POTASSIUM 3.5 mmol/L 06/28 Unknown COMPREHENSIVE METABOLIC 11438 Total Protein 7.7 g/dL Unknown COMPREHENSIVE METABOLIC 87595 Glucose 129 mg/dL 2016 Unknown COMPREHENSIVE METABOLIC 95672 Bicarbonate 34 mmol/L 06/10 Unknown COMPREHENSIVE METABOLIC 41874 AGAP 12 mmol/L 2016 Unknown LIPID GROUP 58567 HDL TEST 64 MG/DL 08/27/2014 Unknown LIP[facility] GROUP 24275 TRIG 222 MG/DL 08/27/2014 Unknown LIPID GROUP 65527 TEST LDL 209 MG/DL 08/27/2014 Unknown LIP[facility] GROUP 27204 CHOL 317 MG/DL 08/27/2014 Unknown LIPID GROUP 47122 RCHOL/HDL 4.95 RATIO 08/27/2014 Unknow n LIPID GROUP 84972 NON-HDL CH 253 MG/DL 08/27/2014 Unknow n GFR CALC 2988077 GFR AA >60 ML/MIN 08/27/2014 Unknown GFR CALC 1568486 GFR NON-AA >60 ML/MIN 08/27/2014 Unknown COMPLETE BLOOD COUNT 0481404 WBC 7.0 10e9/L 08/27/20 14 Unknown COMPLETE BLOOD COUNT [id number] RBC 4.98 10e12/L 2013 Unknown COMPLETE BLOOD COUNT 9651581 HGB 15.6 g/dL 4 Unknown COMPLETE BLOOD COUNT 6299297 HCT DET 46.5 % 4 Unknown COMPLETE BLOOD COUNT 0468416 MCV 93.4 fL 4 Unknown COMPLETE BLOOD COUNT 3016531 MCH 31.3 pg 4 Unknown COMPLETE BLOOD COUNT 3049682 MCHC 33.5 g/dL 4 Unknown COMPLETE BLOOD COUNT 1483732 PLT 309 10e9/L 08/27/20 14 Unknown COMPLETE BLOOD COUNT 7841222 MPV 9.6 fL 4 Unknown COMPLETE BLOOD COUNT 6281034 CADEN % 57.2 % 4 Unknown COMPLETE BLOOD COUNT 6120225 LY % 33.2 % 4 Unknown COMPLETE BLOOD COUNT 7507876 MON % 7.3 % 4 Unknown COMPLETE BLOOD COUNT 6825400 EOS % 2.0 % 4 Unknown COMPLETE BLOOD COUNT 2530010 BASO % 0.3 % 4 Unknown COMPLETE BLOOD COUNT 3268391 RDW 13.7 % 4 Unknown COMPLETE BLOOD COUNT 3893415 ABS CADEN 4.00 10e9/L 014 Unknown COMPLETE BLOOD COUNT 3279043 ABS LYMPH 2.32 10e9/L 014 Unknown COMPLETE BLOOD COUNT 6345110 ABS MONO 0.51 10e9/L 014 Unknown COMPLETE BLOOD COUNT 7591818 ABS EOS 0.14 10e9/L 014 Unknown COMPLETE BLOOD COUNT [id number] ABS BASO 0.02 10e9/L 014 Unknown COMPLETE BLOOD COUNT 5011196 RDW-SD 45.1 fL 4 Unknown COMPREHENSIVE METABOLIC 33040 AST 13 U/L 2013 Unknown COMPREHENSIVE METABOLIC 04328 ALT 11 IU/L 2013 Unknown COMPREHENSIVE METABOLIC 94590 BUN 23 MG/DL 2013 Unknown COMPREHENSIVE METABOLIC 80593 ALBUMIN 4.4 GM/DL 2013 Unknown COMPREHENSIVE METABOLIC 60254 CHLORIDE 99 MMOL/L 2013 Unknown COMPREHENSIVE METABOLIC 61672 BILI TOT 0.5 MG/DL 2013 Unknown COMPREHENSIVE METABOLIC 12243 ALK PHOS 56 U/L 2013 Unknown COMPREHENSIVE METABOLIC 50867 SODIUM 138 MMOL/L 08/27 Unknown COMPREHENSIVE METABOLIC 48654 CREATININE 0.95 MG/DL 08/10 Unknown COMPREHENSIVE METABOLIC 42199 CALCIUM 9.8 MG/DL 2013 Unknown COMPREHENSIVE METABOLIC 35214 POTASSIUM 3.5 MMOL/L 08/27 Unknown COMPREHENSIVE METABOLIC 24194 PROT TOT 6.8 GM/DL 2013 Unknown COMPREHENSIVE METABOLIC 24831 Glucose 90 MG/DL 2013 Unknown COMPREHENSIVE METABOLIC 47791 BICARB 34 MMOL/L 2013 Unknown COMPREHENSIVE METABOLIC 45159 ANION GAP 5 MEQ/L 2013 Unknown LIPASE 00395 LIPASE 11 IU/L 07/21/2014 Unknown AMYLASE 43205 AMYLASE 39 IU/L 07/21/2014 Unknown HEMOGLOBIN A1C (GLYCOSYLATED) 8433818 A1C HPLC 25796-4 6.2 % 03/05/2013 Unknown THYROID STIMULATING HORMONE 71803 TSH 6.986 uIU/ML 03/05/2013 Unknown COMPLETE BLOOD COUNT 3478825 WBC 12.7 10e9/L 013 Unknown COMPLETE BLOOD COUNT 5956820 RBC 4.53 10e12/L 2012 Unknown COMPLETE BLOOD COUNT 5818226 HGB 14.7 g/dL 3 Unknown COMPLETE BLOOD COUNT 3170411 HCT DET 43.1 % 3 Unknown COMPLETE BLOOD COUNT 2552250 MCV 95.1 fL 3 Unknown COMPLETE BLOOD COUNT 4132476 MCH 32.5 pg 3 Unknown COMPLETE BLOOD COUNT 1590512 MCHC 34.1 g/dL 3 Unknown COMPLETE BLOOD COUNT 6621161 PLT 346 10e9/L 03/05/20 13 Unknown COMPLETE BLOOD COUNT 4237271 MPV 9.5 fL 3 Unknown COMPLETE BLOOD COUNT 3703801 CADEN % 67.6 % 3 Unknown COMPLETE BLOOD COUNT 1390801 LY % 22.1 % 3 Unknown COMPLETE BLOOD COUNT 2409836 MON % 6.6 % 3 Unknown COMPLETE BLOOD COUNT 6457480 EOS % 3.3 % 3 Unknown COMPLETE BLOOD COUNT 7980275 BASO % 0.4 % 3 Unknown COMPLETE BLOOD COUNT 0684457 RDW 14.0 % 3 Unknown COMPLETE BLOOD COUNT 5924292 ABS CADEN 8.59 10e9/L 013 Unknown COMPLETE BLOOD COUNT 6586865 ABS LYMPH 2.81 10e9/L 013 Unknown COMPLETE BLOOD COUNT [id number] ABS MONO 0.84 10e9/L 013 Unknown COMPLETE BLOOD COUNT 8021834 ABS EOS 0.42 10e9/L 013 Unknown COMPLETE BLOOD COUNT 4960714 ABS BASO 0.05 10e9/L 013 Unknown COMPLETE BLOOD COUNT 4061765 RDW-SD 46.0 fL 3 Unknown FREE T4 86402 FREE T4 1.14 NG/DL 03/05/2013 Unknown COMPREHENSIVE METABOLIC 91653 AST 17 U/L 2012 Unknown COMPREHENSIVE METABOLIC 61581 ALT 12 IU/L 2012 Unknown COMPREHENSIVE METABOLIC 76738 BUN 24 MG/DL 2012 Unknown COMPREHENSIVE METABOLIC 27964 ALBUMIN 4.2 GM/DL 2012 Unknown COMPREHENSIVE METABOLIC 55728 CHLORIDE 93 MMOL/L 2012 Unknown COMPREHENSIVE METABOLIC 35434 BILI TOT 0.5 MG/DL 2012 Unknown COMPREHENSIVE METABOLIC 61377 ALK PHOS 75 U/L 2012 Unknown COMPREHENSIVE METABOLIC 20364 SODIUM 141 MMOL/L 03/05 Unknown COMPREHENSIVE METABOLIC 88055 CREATININE 1.36 MG/DL 02/09 Unknown COMPREHENSIVE METABOLIC 96598 CALCIUM 9.2 MG/DL 2012 Unknown COMPREHENSIVE METABOLIC 51023 POTASSIUM 3.1 MMOL/L 03/05 Unknown COMPREHENSIVE METABOLIC 25022 PROT TOT 6.9 GM/DL 2012 Unknown COMPREHENSIVE METABOLIC 16362 Glucose 123 MG/DL 2012 Unknown COMPREHENSIVE METABOLIC 40036 BICARB 36 MMOL/L 2012 Unknown COMPREHENSIVE METABOLIC 27006 ANION GAP 12 MEQ/L 2012 Unknown GFR CALC 4425980 GFR AA 51.0L ML/MIN 03/05/2013 Unknow n GFR CALC 5353356 GFR NON-AA 42.0L ML/MIN 03/05/2013 Unkno wn COMPREHENSIVE METABOLIC 39435 AST 14 U/L 2012 Unknown COMPREHENSIVE METABOLIC 96763 ALT 11 IU/L 2012 Unknown COMPREHENSIVE METABOLIC 25053 BUN 16 MG/DL 2012 Unknown COMPREHENSIVE METABOLIC 38261 ALBUMIN 4.2 GM/DL 2012 Unknown COMPREHENSIVE METABOLIC 43716 CHLORIDE 98 MMOL/L 2012 Unknown COMPREHENSIVE METABOLIC 05305 BILI TOT 0.4 MG/DL 2012 Unknown COMPREHENSIVE METABOLIC 72560 ALK PHOS 77 U/L 2012 Unknown COMPREHENSIVE METABOLIC 52715 SODIUM 139 MMOL/L 09/25 Unknown COMPREHENSIVE METABOLIC 51627 CREATININE 0.86 MG/DL 09/10 Unknown COMPREHENSIVE METABOLIC 11905 CALCIUM 9.5 MG/DL 2012 Unknown COMPREHENSIVE METABOLIC 93058 POTASSIUM 3.8 MMOL/L 09/25 Unknown COMPREHENSIVE METABOLIC 38727 PROT TOT 6.8 GM/DL 2012 Unknown COMPREHENSIVE METABOLIC 60482 Glucose 91 MG/DL 2012 Unknown COMPREHENSIVE METABOLIC 48503 BICARB 32 MMOL/L 2012 Unknown COMPREHENSIVE METABOLIC 37856 ANION GAP 9 MEQ/L 2012 Unknown FREE T4 42477 FREE T4 0.98 NG/DL 09/25/2012 Unknown THYROID STIMULATING HORMONE 06459 TSH 1.736 uIU/ML 09/25/2012 Unknown C-REACTIVE PROTEIN (CRP) QUANT 30032 CRP 2.3 MG/DL 09/25/2012 Unknown COMPLETE BLOOD COUNT [id number] WBC 11.9 10e9/L 013 Unknown COMPLETE BLOOD COUNT [id number] RBC 4.87 10e12/L 2012 Unknown COMPLETE BLOOD COUNT [id number] HGB 15.1 g/dL 3 Unknown COMPLETE BLOOD COUNT [id number] HCT DET 44.8 % 3 Unknown COMPLETE BLOOD COUNT [id number] MCV 92.0 fL 3 Unknown COMPLETE BLOOD COUNT [id number] MCH 31.0 pg 3 Unknown COMPLETE BLOOD COUNT 9271558 MCHC 33.7 g/dL 3 Unknown COMPLETE BLOOD COUNT [id number] PLT 343 10e9/L 09/25/19 13 Unknown COMPLETE BLOOD COUNT [id number] MPV 9.0 fL 3 Unknown COMPLETE BLOOD COUNT [id number] CADEN % 68.2 % 3 Unknown COMPLETE BLOOD COUNT [id number] LY % 22.4 % 3 Unknown COMPLETE BLOOD COUNT [id number] MON % 6.4 % 3 Unknown COMPLETE BLOOD COUNT [id number] EOS % 2.7 % 3 Unknown COMPLETE BLOOD COUNT [id number] BASO % 0.3 % 3 Unknown COMPLETE BLOOD COUNT [id number] RDW 13.8 % 3 Unknown COMPLETE BLOOD COUNT [id number] ABS CADEN 8.12 10e9/L 013 Unknown COMPLETE BLOOD COUNT [id number] ABS LYMPH 2.67 10e9/L 013 Unknown COMPLETE BLOOD COUNT [id number] ABS MONO 0.76 10e9/L 013 Unknown COMPLETE BLOOD COUNT [id number] ABS EOS 0.32 10e9/L 013 Unknown COMPLETE BLOOD COUNT [id number] ABS BASO 0.04 10e9/L 013 Unknown COMPLETE BLOOD COUNT [id number] RDW-SD 45.6 fL 3 Unknown GFR CALC [id number] GFR AA >60 ML/MIN 09/25/2012 Unknown GFR CALC [id number] GFR NON-AA >60 ML/MIN 09/25/2012 Unknown ERYTHROCYTE SEDIMENTATION RATE 90507 ESR 19 MM/HR 05/06/2012 Unknown VITAMIN B 12 FOLIC ACID 27955|49871 VIT B 12 922 PG/ML 04/11 Unknown VITAMIN B 12 FOLIC ACID 51599|04106 FOLIC ACID 13.6 NG/ML Unknown URIC ACID 81255 URIC ACID 7.8 MG/DL 05/06/2012 Unknown COMPLETE BLOOD COUNT 19394 WBC 11.9 10e9/L 012 Unknown COMPLETE BLOOD COUNT 69175 RBC 5.30 10e12/L 2011 Unknown COMPLETE BLOOD COUNT 98131 HGB 16.6 g/dL 2 Unknown COMPLETE BLOOD COUNT 70585 HCT DET 47.2 % 2 Unknown COMPLETE BLOOD COUNT 41257 MCV 89.1 fL 2 Unknown COMPLETE BLOOD COUNT 87801 MCH 31.3 pg 2 Unknown COMPLETE BLOOD COUNT 69655 MCHC 35.2 g/dL 2 Unknown COMPLETE BLOOD COUNT 05126 PLT 362 10e9/L 05/06/20 12 Unknown COMPLETE BLOOD COUNT 93553 MPV 9.4 fL 2 Unknown COMPLETE BLOOD COUNT 58670 CADEN % 68.2 % 2 Unknown COMPLETE BLOOD COUNT 28467 LY % 22.0 % 2 Unknown COMPLETE BLOOD COUNT 38200 MON % 6.9 % 2 Unknown COMPLETE BLOOD COUNT 08825 EOS % 2.6 % 2 Unknown COMPLETE BLOOD COUNT 03792 BASO % 0.3 % 2 Unknown COMPLETE BLOOD COUNT 42518 RDW 12.8 % 2 Unknown COMPLETE BLOOD COUNT 14080 ABS CADEN 8.12 10e9/L 012 Unknown COMPLETE BLOOD COUNT 57288 ABS LYMPH 2.62 10e9/L 012 Unknown COMPLETE BLOOD COUNT 31228 ABS MONO 0.82 10e9/L 012 Unknown COMPLETE BLOOD COUNT 32288 ABS EOS 0.31 10e9/L 012 Unknown COMPLETE BLOOD COUNT 60135 ABS BASO 0.04 10e9/L 012 Unknown COMPLETE BLOOD COUNT 10618 RDW-SD 41.5 fL 08/27/201 2 Unknown GFR CALC [id number] GFR AA >60 ML/MIN 05/06/2012 Unknown GFR CALC 2220943 GFR NON-AA 58.0L ML/MIN 05/06/2012 Unkno wn FREE T4 82880 FREE T4 1.15 NG/DL 05/06/2012 Unknown THYROID STIMULATING HORMONE 05236 TSH 1.568 uIU/ML 05/06/2012 Unknown COMPREHENSIVE METABOLIC 67796 AST 20 U/L 2011 Unknown COMPREHENSIVE METABOLIC 35995 ALT 12 IU/L 2011 Unknown COMPREHENSIVE METABOLIC 76924 BUN 20 MG/DL 2011 Unknown COMPREHENSIVE METABOLIC 26558 ALBUMIN 4.5 GM/DL 2011 Unknown COMPREHENSIVE METABOLIC 53646 CHLORIDE 91 MMOL/L 2011 Unknown COMPREHENSIVE METABOLIC 33980 BILI TOT 0.4 MG/DL 2011 Unknown COMPREHENSIVE METABOLIC 48289 ALK PHOS 73 U/L 2011 Unknown COMPREHENSIVE METABOLIC 41200 SODIUM 139 MMOL/L 05/06 Unknown COMPREHENSIVE METABOLIC 78271 CREATININE 1.02 MG/DL 04/11 Unknown COMPREHENSIVE METABOLIC 56332 CALCIUM 9.7 MG/DL 2011 Unknown COMPREHENSIVE METABOLIC 89102 POTASSIUM 3.1 MMOL/L 05/06 Unknown COMPREHENSIVE METABOLIC 51069 PROT TOT 7.3 GM/DL 2011 Unknown COMPREHENSIVE METABOLIC 88642 Glucose 118 MG/DL 2011 Unknown COMPREHENSIVE METABOLIC 79840 BICARB 33 MMOL/L 2011 Unknown COMPREHENSIVE METABOLIC 59985 ANION GAP 15 MEQ/L 2011 Unknown Procedures Procedure Codes Date COMPREHEN METABOLIC PANEL CPT-4: 29314 02/12/2020 A1C HPLC CPT-4: 52632 02/12/2020 ROUTINE VENIPUNCTURE CPT-4: 22210 09/29/2019 URINALYSIS NONAUTO W/O SCOPE CPT-4: 08358 09/29/2019 COMPREHEN METABOLIC PANEL CPT-4: 86514 09/29/2019 LIPID PANEL CPT-4: 10812 09/29/2019 A1C HPLC CPT-4: 86554 09/29/2019 ASSAY OF FREE THYROXINE CPT-4: 73103 09/29/2019 ASSAY THYROID STIM HORMONE CPT-4: 76241 09/29/2019 COMPLETE CBC W/AUTO DIFF WBC CPT-4: 55053 09/29/2019 URINALYSIS NONAUTO W/O SCOPE CPT-4: 79717 09/30/2018 MICROALBUMIN QUANTITATIVE CPT-4: 08981 09/30/2018 CEFTRIAXONE SODIUM INJECTION CPT-4: J0696 06/19/2018 THER/PROPH/DIAG INJ SC/IM CPT-4: 85124 06/19/2018 CEFTRIAXONE SODIUM INJECTION CPT-4: J0696 06/17/2018 THER/PROPH/DIAG INJ SC/IM CPT-4: 51229 06/17/2018 THER/PROPH/DIAG INJ SC/IM CPT-4: 33028 05/16/2018 KETOROLAC TROMETHAMINE INJ CPT-4: J1885 05/16/2018 ONDANSETRON HCL INJECTION CPT-4: J2405 05/16/2018 THER/PROPH/DIAG INJ SC/IM CPT-4: 04776 05/16/2018 ROUTINE VENIPUNCTURE CPT-4: 74625 03/20/2018 COMPREHEN METABOLIC PANEL CPT-4: 12496 03/20/2018 DEXAMETHASONE SODIUM PHOS CPT-4: J1100 02/11/2018 THER/PROPH/DIAG INJ SC/IM CPT-4: 43589 02/11/2018 TRIAMCINOLONE ACET INJ NOS CPT-4: J3301 02/11/2018 CEFTRIAXONE SODIUM INJECTION CPT-4: J0696 02/01/2018 THER/PROPH/DIAG INJ SC/IM CPT-4: 89240 02/01/2018 CEFTRIAXONE SODIUM INJECTION CPT-4: J0696 01/30/2018 THER/PROPH/DIAG INJ SC/IM CPT-4: 58806 01/30/2018 ROUTINE VENIPUNCTURE CPT-4: 66796 12/10/2017 ASSAY OF FREE THYROXINE CPT-4: 10258 12/10/2017 ASSAY THYROID STIM HORMONE CPT-4: 68513 12/10/2017 COMPREHEN METABOLIC PANEL CPT-4: 92346 12/10/2017 COMPLETE CBC W/AUTO DIFF WBC CPT-4: 97818 12/10/2017 LIPID PANEL CPT-4: 79514 12/10/2017 A1C HPLC CPT-4: 49758 12/10/2017 CEFTRIAXONE SODIUM INJECTION CPT-4: J0696 12/10/2017 THER/PROPH/DIAG INJ SC/IM CPT-4: 92105 12/10/2017 CEFTRIAXONE SODIUM INJECTION CPT-4: J0696 12/07/2017 THER/PROPH/DIAG INJ SC/IM CPT-4: 38448 12/07/2017 DEXAMETHASONE SODIUM PHOS CPT-4: J1100 12/07/2017 THER/PROPH/DIAG INJ SC/IM CPT-4: 02452 12/07/2017 CEFTRIAXONE SODIUM INJECTION CPT-4: J0696 10/08/2017 THER/PROPH/DIAG INJ SC/IM CPT-4: 19259 10/08/2017 CEFTRIAXONE SODIUM INJECTION CPT-4: J0696 09/21/2017 THER/PROPH/DIAG INJ SC/IM CPT-4: 26407 09/21/2017 CEFTRIAXONE SODIUM INJECTION CPT-4: J0696 09/20/2017 THER/PROPH/DIAG INJ SC/IM CPT-4: 22504 09/20/2017 REMOVAL OF NAIL PLATE CPT-4: 36540 08/29/2017 THER/PROPH/DIAG INJ SC/IM CPT-4: 51884 08/29/2017 TRIAMCINOLONE ACET INJ NOS CPT-4: J3301 08/29/2017 CEFTRIAXONE SODIUM INJECTION CPT-4: J0696 08/29/2017 THER/PROPH/DIAG INJ SC/IM CPT-4: 30929 08/29/2017 DESTRUCT PREMALG LESION (Cryosurgery) CPT-4: 78627 ROUTINE VENIPUNCTURE CPT-4: 19634 06/27/2017 ASSAY OF FREE THYROXINE CPT-4: 46527 06/27/2017 ASSAY THYROID STIM HORMONE CPT-4: 88190 06/27/2017 COMPREHEN METABOLIC PANEL CPT-4: 53545 06/27/2017 COMPLETE CBC W/AUTO DIFF WBC CPT-4: 66352 06/27/2017 EXC TR-EXT B9+REECE 0.5 CM< CPT-4: 28653 01/24/2017 THER/PROPH/DIAG INJ SC/IM CPT-4: 87227 08/02/2016 DEXAMETHASONE SODIUM PHOS CPT-4: J1100 08/02/2016 DESTRUCT PREMALG LESION (Cryosurgery) CPT-4: 14685 EXC TR-EXT B9+REECE 0.5 CM< CPT-4: 15662 08/01/2016 AEROBIC WOUND CULTURE & STN CPT-4: 70902 07/06/2016 CEFTRIAXONE SODIUM INJECTION CPT-4: J0696 05/25/2016 THER/PROPH/DIAG INJ SC/IM CPT-4: 60516 05/25/2016 THER/PROPH/DIAG INJ SC/IM CPT-4: 32435 04/26/2016 DEXAMETHASONE SODIUM PHOS CPT-4: J1100 04/26/2016 CEFTRIAXONE SODIUM INJECTION CPT-4: J0696 04/26/2016 THER/PROPH/DIAG INJ SC/IM CPT-4: 34939 04/26/2016 THER/PROPH/DIAG INJ SC/IM CPT-4: 64041 02/09/2016 TRIAMCINOLONE ACET INJ NOS CPT-4: J3301 02/09/2016 URINALYSIS NONAUTO W/O SCOPE CPT-4: 41602 01/24/2016 URINE CULTURE/ COLONY COUNT CPT-4: 38420 01/24/2016 THER/PROPH/DIAG INJ SC/IM CPT-4: 24694 12/08/2015 TRIAMCINOLONE ACET INJ NOS CPT-4: J3301 12/08/2015 THER/PROPH/DIAG INJ SC/IM CPT-4: 09131 10/07/2015 TRIAMCINOLONE ACET INJ NOS CPT-4: J3301 10/07/2015 DESTRUCT PREMALG LESION (Cryosurgery) CPT-4: 07046 THER/PROPH/DIAG INJ SC/IM CPT-4: 72420 03/16/2015 METHYLPREDNISOLONE 40 MG INJ CPT-4: J1030 03/16/2015 DESTRUCT PREMALG LESION (Cryosurgery) CPT-4: 21567 THER/PROPH/DIAG INJ SC/IM CPT-4: 71529 09/11/2014 METHYLPREDNISOLONE 40 MG INJ CPT-4: J1030 09/11/2014 TRIAMCINOLONE ACET INJ NOS CPT-4: J3301 09/11/2014 CEFTRIAXONE SODIUM INJECTION CPT-4: J0696 09/11/2014 THER/PROPH/DIAG INJ SC/IM CPT-4: 06145 09/11/2014 ROUTINE VENIPUNCTURE CPT-4: 57908 08/27/2014 COMPREHEN METABOLIC PANEL CPT-4: 03467 08/27/2014 COMPLETE CBC W/AUTO DIFF WBC CPT-4: 19799 08/27/2014 LIPID PANEL CPT-4: 14900 08/27/2014 ROUTINE VENIPUNCTURE CPT-4: 07319 07/21/2014 ASSAY OF AMYLASE CPT-4: 66453 07/21/2014 ASSAY OF LIPASE CPT-4: 13084 07/21/2014 THER/PROPH/DIAG INJ SC/IM CPT-4: 98170 07/15/2014 TRIAMCINOLONE ACET INJ NOS CPT-4: J3301 07/15/2014 ROUTINE VENIPUNCTURE CPT-4: 93762 05/14/2014 ASSAY OF FREE THYROXINE CPT-4: 65360 05/14/2014 ASSAY THYROID STIM HORMONE CPT-4: 56623 05/14/2014 COMPREHEN METABOLIC PANEL CPT-4: 78946 05/14/2014 COMPLETE CBC W/AUTO DIFF WBC CPT-4: 25168 05/14/2014 LIPID PANEL CPT-4: 38824 05/14/2014 CEFTRIAXONE SODIUM INJECTION CPT-4: J0696 04/21/2014 THER/PROPH/DIAG INJ SC/IM CPT-4: 81849 04/21/2014 THER/PROPH/DIAG INJ SC/IM CPT-4: 56242 04/21/2014 TRIAMCINOLONE ACET INJ NOS CPT-4: J3301 04/21/2014 THER/PROPH/DIAG INJ SC/IM CPT-4: 67299 03/04/2014 METHYLPREDNISOLONE 40 MG INJ CPT-4: J1030 03/04/2014 TRIAMCINOLONE ACET INJ NOS CPT-4: J3301 03/04/2014 CEFTRIAXONE SODIUM INJECTION CPT-4: J0696 03/04/2014 THER/PROPH/DIAG INJ SC/IM CPT-4: 17050 03/04/2014 TDAP VACCINE 7 YRS/> IM CPT-4: 10238 02/27/2014 IMMUNIZATION ADMIN CPT-4: 12093 02/27/2014 DESTRUCT PREMALG LESION (Cryosurgery) CPT-4: 98230 DESTRUCT PREMALG LES 2-14 CPT-4: 51509 01/13/2014 THER/PROPH/DIAG INJ SC/IM CPT-4: 84629 10/21/2013 METHYLPREDNISOLONE 40 MG INJ CPT-4: J1030 10/21/2013 TRIAMCINOLONE ACET INJ NOS CPT-4: J3301 10/21/2013 CEFTRIAXONE SODIUM INJECTION CPT-4: J0696 08/27/2013 THER/PROPH/DIAG INJ SC/IM CPT-4: 57123 08/27/2013 THER/PROPH/DIAG INJ SC/IM CPT-4: 88263 08/27/2013 METHYLPREDNISOLONE 40 MG INJ CPT-4: J1030 08/27/2013 TRIAMCINOLONE ACET INJ NOS CPT-4: J3301 08/27/2013 THER/PROPH/DIAG INJ SC/IM CPT-4: 71110 06/23/2013 METHYLPREDNISOLONE 40 MG INJ CPT-4: J1030 06/23/2013 TRIAMCINOLONE ACET INJ NOS CPT-4: J3301 06/23/2013 THER/PROPH/DIAG INJ SC/IM CPT-4: 47154 05/26/2013 METHYLPREDNISOLONE 40 MG INJ CPT-4: J1030 05/26/2013 TRIAMCINOLONE ACET INJ NOS CPT-4: J3301 05/26/2013 ROUTINE VENIPUNCTURE CPT-4: 62057 03/05/2013 ASSAY OF FREE THYROXINE CPT-4: 75712 03/05/2013 ASSAY THYROID STIM HORMONE CPT-4: 25515 03/05/2013 COMPREHEN METABOLIC PANEL CPT-4: 70387 03/05/2013 COMPLETE CBC W/AUTO DIFF WBC CPT-4: 29016 03/05/2013 A1C GLYCOSYLATED HEMOGLOBIN TEST CPT-4: 89959 013 DRAIN/INJECT JOINT/BURSA CPT-4: 09874 12/04/2012 METHYLPREDNISOLONE 40 MG INJ CPT-4: J1030 12/04/2012 TRIAMCINOLONE ACET INJ NOS CPT-4: J3301 12/04/2012 CEFTRIAXONE SODIUM INJECTION CPT-4: J0696 11/21/2012 THER/PROPH/DIAG INJ SC/IM CPT-4: 39923 11/21/2012 THER/PROPH/DIAG INJ SC/IM CPT-4: 44282 10/14/2012 METHYLPREDNISOLONE 40 MG INJ CPT-4: J1030 10/14/2012 TRIAMCINOLONE ACET INJ NOS CPT-4: J3301 10/14/2012 URINALYSIS NONAUTO W/O SCOPE CPT-4: 73192 09/27/2012 ROUTINE VENIPUNCTURE CPT-4: 26777 09/25/2012 ASSAY OF FREE THYROXINE CPT-4: 74423 09/25/2012 ASSAY THYROID STIM HORMONE CPT-4: 72258 09/25/2012 COMPREHEN METABOLIC PANEL CPT-4: 63269 09/25/2012 COMPLETE CBC W/AUTO DIFF WBC CPT-4: 92299 09/25/2012 C-REACTIVE PROTEIN CPT-4: 33756 09/25/2012 THER/PROPH/DIAG INJ SC/IM CPT-4: 94468 08/29/2012 METHYLPREDNISOLONE 40 MG INJ CPT-4: J1030 08/29/2012 TRIAMCINOLONE ACET INJ NOS CPT-4: J3301 08/29/2012 DESTRUCT PREMALG LESION (Cryosurgery) CPT-4: 65418 THER/PROPH/DIAG INJ SC/IM CPT-4: 67854 05/06/2012 METHYLPREDNISOLONE 40 MG INJ CPT-4: J1030 05/06/2012 TRIAMCINOLONE ACET INJ NOS CPT-4: J3301 05/06/2012 VITAMIN B 12 FOLIC ACID CPT-4: 05202|56450 05/06/2012 RBC SED RATE AUTOMATED CPT-4: 85399 05/06/2012 ROUTINE VENIPUNCTURE CPT-4: 63266 05/06/2012 ASSAY OF FREE THYROXINE CPT-4: 11151 05/06/2012 ASSAY THYROID STIM HORMONE CPT-4: 04632 05/06/2012 COMPREHEN METABOLIC PANEL CPT-4: 62923 05/06/2012 COMPLETE CBC W/AUTO DIFF WBC CPT-4: 44313 05/06/2012 ASSAY OF BLOOD/URIC ACID CPT-4: 16668 05/06/2012 THER/PROPH/DIAG INJ SC/IM CPT-4: 94305 03/19/2012 KETOROLAC TROMETHAMINE INJ CPT-4: J1885 03/19/2012 KETOROLAC TROMETHAMINE INJ CPT-4: J1885 01/30/2012 THER/PROPH/DIAG INJ SC/IM CPT-4: 71531 01/30/2012 PROMETHAZINE HCL INJECTION CPT-4: J2550 01/30/2012 THER/PROPH/DIAG INJ SC/IM CPT-4: 38897 01/24/2012 METHYLPREDNISOLONE 40 MG INJ CPT-4: J1030 01/24/2012 TRIAMCINOLONE ACET INJ NOS CPT-4: J3301 01/24/2012 THER/PROPH/DIAG INJ SC/IM CPT-4: 30819 09/13/2011 KETOROLAC TROMETHAMINE INJ CPT-4: J1885 09/13/2011 THER/PROPH/DIAG INJ SC/IM CPT-4: 22961 09/13/2011 PROMETHAZINE HCL INJECTION CPT-4: J2550 09/13/2011 CEFTRIAXONE SODIUM INJECTION CPT-4: J0696 07/20/2011 THER/PROPH/DIAG INJ SC/IM CPT-4: 50570 07/20/2011 THER/PROPH/DIAG INJ SC/IM CPT-4: 89205 07/20/2011 METHYLPREDNISOLONE INJECTION CPT-4: J2930 07/20/2011 URINALYSIS NONAUTO W/O SCOPE CPT-4: 11097 05/09/2011 CEFTRIAXONE SODIUM INJECTION CPT-4: J0696 05/09/2011 THER/PROPH/DIAG INJ SC/IM CPT-4: 62505 05/09/2011 THER/PROPH/DIAG INJ SC/IM CPT-4: 19289 05/09/2011 PROMETHAZINE HCL INJECTION CPT-4: J2550 05/09/2011 HYDRATION IV INFUSION INIT CPT-4: 36914 05/09/2011 DESTRUCT PREMALG LESION (Cryosurgery) CPT-4: 50479 DESTRUCT PREMALG LES 2-14 CPT-4: 30341 07/19/2010 REMOVAL OF SKIN TAGS <W/15 CPT-4: 61037 05/30/2010 THER/PROPH/DIAG INJ SC/IM CPT-4: 40521 04/05/2010 CEFTRIAXONE SODIUM INJECTION CPT-4: J0696 04/05/2010 TRIAMCINOLONE ACET INJ NOS CPT-4: J3301 04/05/2010 METHYLPREDNISOLONE 40 MG INJ CPT-4: J1030 04/05/2010 THER/PROPH/DIAG INJ SC/IM CPT-4: 79731 04/05/2010 TRIAMCINOLONE ACET INJ NOS CPT-4: J3301 03/09/2010 METHYLPREDNISOLONE 40 MG INJ CPT-4: J1030 03/09/2010 THER/PROPH/DIAG INJ SC/IM CPT-4: 79528 03/09/2010 THER/PROPH/DIAG INJ SC/IM CPT-4: 51726 03/09/2010 CEFTRIAXONE SODIUM INJECTION CPT-4: J0696 03/09/2010 Vital Signs Date Vital 02/12/2020 Heart Rate 1: 80 bpm Respiratory [...] 1: 132/80 Code: 8480-6 BMI: 35.8 Code: 30855-7 Heart Rate 1: 88 bpm Height: 5'4" Respiratory Rate: 20 bpm SpO2: 95% Tempera ture: 36.9 (C) / 98.5 (F) Weight: 210 lbs 05/28/2019 Blood Pressure 1: 126/82 Code: 8480-6 BMI: 35.0 Code: 82747-6 Heart Rate 1: 88 bpm Height: 5'4" [...] 1: 128/90 Code: 8480-6 BMI: 37.2 Code: 74446-8 Heart Rate 1: 84 bpm Height: 5'4" Respiratory Rate: 20 bpm SpO2: 95% Tempera ture: 36.6 (C) / 97.8 (F) Weight: 217 lbs 08/27/2018 Blood Pressure 1: 128/88 Code: 8480-6 BMI: 38.3 Code: 26855-1 Heart Rate 1: 84 bpm Height: 5'4" [...] 1: 119/72 Code: 8480-6 BMI: 37.4 Code: 48415-1 Heart Rate 1: 82 bpm Height: 5'4" Respiratory Rate: 12 bpm SpO2: 94% Tempera ture: 35.2 (C) / 95.4 (F) Weight: 218 lbs 12/18/2017 Blood Pressure 1: 128/86 Code: 8480-6 BMI: 37.8 Code: 66470-7 Heart Rate 1: 84 bpm Height: 5'4" [...] 1: 128/82 Code: 8480-6 BMI: 35.5 Code: 98122-2 Heart Rate 1: 84 bpm Height: 5'4" [...] 1: 128/82 Code: 8480-6 BMI: 30.2 Code: 47698-3 Heart Rate 1: 80 bpm Height: 5'4" [...] 1: 128/86 Code: 8480-6 BMI: 32.8 Code: 26459-0 Heart Rate 1: 66 bpm Height: 5'4" Respiratory Rate: 18 bpm Temperature: 36 .3 (C) / 97.3 (F) Weight: 191 lbs 06/23/2013 Blood Pressure 1: 132/94 Code: 8480-6 BMI: 34.0 Code: 99858-2 Heart Rate 1: 84 bpm Height: 5'4" Respiratory Rate: 20 bpm Temperature: 36 .8 (C) / 98.2 (F) Weight: 198 lbs 05/26/2013 Blood Pressure 1: 114/80 Code: 8480-6 BMI: 35.0 Code: 73684-7 Heart Rate 1: 80 bpm Height: 5'4" Respiratory Rate: 20 bpm Temperature: 36 .4 (C) / 97.6 (F) Weight: 204 lbs 04/16/2013 Blood Pressure 1: 114/82 Code: 8480-6 BMI: 36.7 Code: 94187-4 Heart Rate 1: 84 bpm Height: 5'4" Respiratory Rate: 20 bpm Temperature: 36 .7 (C) / 98.0 (F) Weight: 214 lbs 03/05/2013 Blood Pressure 1: 136/90 Code: 8480-6 BMI: 37.1 Code: 57461-5 Heart Rate 1: 84 bpm Height: 5'4" [...] 1: 168/114 Code: 8480-6 BMI: 36.2 Code: 93177-9 Heart Rate 1: 104 bpm Height: 5'4" Respiratory Rate: 20 bpm Temperature: 36 .8 (C) / 98.2 (F) Weight: 211 lbs 11/22/2012 Blood Pressure 1: 128/90 Code: 8480-6 Heart Rate 1: 88 bpm Respiratory Rate: 20 bpm SpO2: 96% Temperature: 36.8 (C) / 98.2 (F) 11/21/2012 Blood Pressure 1: 146/100 Code: 8480-6 BMI: 35.7 Code: 03837-3 Heart Rate 1: 96 bpm Height: 5'4" [...] 1: 138/100 Code: 8480-6 BMI: 35.7 Code: 85799-9 Heart Rate 1: 96 bpm Height: 5'4" Respiratory Rate: 20 bpm Temperature: 36 .8 (C) / 98.2 (F) Weight: 208 lbs 05/06/2012 Blood Pressure 1: 154/102 Code: 8480-6 BMI: 34.7 Code: 71840-8 Heart Rate 1: 116 bpm Height: 5'4" Respiratory Rate: 20 bpm Temperature: 36 .8 (C) / 98.2 (F) Weight: 202 lbs 04/03/2012 Blood Pressure 1: 134/94 Code: 8480-6 BMI: 34.8 Code: 04351-7 Heart Rate 1: 108 bpm Height: 5'4" Respiratory Rate: 20 bpm Temperature: 36 .8 (C) / 98.2 (F) Weight: 203 lbs 03/19/2012 Blood Pressure 1: 148/106 Code: 8480-6 BMI: 35.0 Code: 22878-7 Heart Rate 1: 100 bpm Height: 5'4" Respiratory Rate: 20 bpm Temperature: 36 .6 (C) / 97.9 (F) Weight: 204 lbs 02/22/2012 Blood Pressure 1: 146/94 Code: 8480-6 He art Rate 1: 88 bpm 02/21/2012 Blood Pressure 1: 172/120 Code: 8480-6 B lood Pressure 2: 152/106 Code: 8480-6 Heart Rate 1: 116 bpm 02/20/2012 Blood Pressure 1: 160/100 Code: 8480-6 BMI: 32.0 Code: 45756-4 Heart Rate 1: 84 bpm Height: 5'7" Temperature: 36.5 (C) / 97.7 (F) Weight: 204 lbs 01/30/2012 Blood Pressure 1: 152/110 Code: 8480-6 BMI: 32.0 Code: 81291-9 Heart Rate 1: 116 bpm Height: 5'7" Respiratory Rate: 20 bpm Temperature: 37 .0 (C) / 98.6 (F) Weight: 204 lbs 01/24/2012 Blood Pressure 1: 146/100 Code: 8480-6 BMI: 32.0 Code: 19705-4 Heart Rate 1: 100 bpm Height: 5'7" Respiratory Rate: 20 bpm Temperature: 36 .7 (C) / 98.0 (F) Weight: 204 lbs 01/10/2012 Blood Pressure 1: 156/94 Code: 8480-6 BMI: 32.6 Code: 00662-4 Heart Rate 1: 72 bpm Height: 5'7" Respiratory Rate: 20 bpm Temperature: 36 .8 (C) / 98.2 (F) Weight: 208 lbs 12/11/2011 Blood Pressure 1: 146/100 Code: 8480-6 Heart Rat e 1: 116 bpm Height: 5'7" Respiratory Rate: 20 bpm Temperature: 36.9 (C) / 98.4 (F) We ight: 11/09/2011 Blood Pressure 1: 148/96 Code: 8480-6 BMI: 32.1 Code: 27703-1 Heart Rate 1: 116 bpm Height: 5'7" Respiratory Rate: 20 bpm Temperature: 36 .7 (C) / 98.0 (F) Weight: 205 lbs 09/13/2011 Blood Pressure 1: 126/88 Code: 8480-6 Heart Rate 1: 88 bpm Height: 5'7" Respiratory Rate: 20 bpm Temperature: 36.9 (C) / 98.4 (F) We ight: 08/31/2011 Blood Pressure 1: 118/82 Code: 8480-6 BMI: 32.0 Code: 19480-1 Heart Rate 1: 80 bpm Height: 5'7" Temperature: 36.4 (C) / 97.6 (F) Weight: 204 lbs 07/06/2011 Blood Pressure 1: 128/86 Code: 8480-6 BMI: 30.9 Code: 42053-9 Heart Rate 1: 92 bpm Height: 5'7" Respiratory Rate: 20 bpm Temperature: 36 .9 (C) / 98.4 (F) Weight: 197 lbs 06/06/2011 Blood Pressure 1: 112/74 Code: 8480-6 BMI: 31.0 Code: 30946-6 Heart Rate 1: 72 bpm Height: 5'7" [...] 1: 128/92 Code: 8480-6 BMI: 33.6 Code: 71624-9 Heart Rate 1: 104 bpm Height: 5'4" Temperature: 36.8 (C) / 98.3 (F) Weight: 196 lbs Functional Status No Functional Status data Reason For Visit Reason For Visit Effective Dates Notes blisters 02/12/2020 nasal allergies 01/13/2020 follow up [...] insomnia 01/24/2016 cough 12/23/2015 patient is chante malin and steroid injection chest congestion 12/08/2015 injection(s) [...] 02/20/2012 headache 01/30/2012 edema 01/24/2012 Currently just francesco Dexter/ROBERT shoulder pain 01/10/2012 thinks these are cau sed by the shoulder pain back pain 12/11/2011 was instructed to co me in for further hydrocodone refills by Lashawn Eckert headache 11/09/2011 headache 09/13/2011 with some vomiting fatigue 08/31/2011 and body aches, viviana cially with exertion follow up 07/06/2011 1mo fwup [...] Check-up Encounters Encounter Performer Location Codes Date ([id number]) OFFICE/OUTPATIENT VISIT EST Diagnosis: Blister (nonthermal), right foot, initial encounter[ICD10: S90.821A] Diagnosis: Type 2 diabetes mellitus with hyperglycemia[ICD10: E11.65] Diagnosis: Lower extremity edema[ICD10: R60.0] Kathleen COLON TechozJj [facility] CPT-4: 15728 02/12/2020 ([id number]) OFFICE/OUTPATIENT VISIT EST Diagnosis: Essential (primary) hypertension[ICD10: I10] Diagnosis: Type 2 diabetes mellitus with hyperglycemia[ICD10: E11.65] Diagnosis: Allergic rhinitis[ICD10: J30.9] María Elena JUARES TechozJj [employer] CPT-4: 56963 01/13/2020 ([id number]) OFFICE/OUTPATIENT VISIT EST Diagnosis: Type 2 diabetes mellitus with hyperglycemia[ICD10: E11.65] María Elena Hicks Plot[employer] CPT-4: 70816 11/20/2019 ([id number]) OFFICE/OUTPATIENT VISIT EST Diagnosis: Ingrowing nail[ICD10: L60.0] Diagnosis: Type 2 diabetes mellitus with hyperglycemia[ICD10: E11.65] Kathleen JUARES TechozJj [employer] CPT-4: 51699 10/07/2019 ([id number]) OFFICE/OUTPATIENT VISIT EST Diagnosis: DM w/o complication type II, uncontrolled[ICD10: E11.65] Diagnosis: Hypertriglyceridemia[ICD10: E78.1] Diagnosis: Essential hypertension[ICD10: I10] María Elena JEAN Fabiola APPIAH [employer] CPT-4: 18397 09/30/2019 ([id number]) NURSE/OUTPATIENT VISIT EST Diagnosis: Essential (primary) hypertension[ICD10: I10] Diagnosis: Cervicalgia[ICD10: M54.2] Diagnosis: Hyperglycemia, 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: R73.9] Diagnosis: Mixed hyperlipidemia[ICD10: E78.2] María Elena JEAN Fabiola APPIAH [employer] CPT-4: 24406 09/29/2019 ([id number]) OFFICE/OUTPATIENT VISIT EST Diagnosis: Essential (primary) hypertension[ICD10: I10] Diagnosis: Fall from bed, sequela[ICD10: W06.XXXS] María Elena REED LucioJj TD [employer] CPT-4: 05912 05/28/2019 ([id number]) NURSE/OUTPATIENT VISIT EST Diagnosis: Essential (primary) hypertension[ICD10: I10] María Elena JUARES Fabiola APPIAH [facility] [employer] CPT-4: 15992 05/19/2019 ([id number]) OFFICE/OUTPATIENT VISIT EST Diagnosis: Essential (primary) hypertension[ICD10: I10] Diagnosis: Type 2 diabetes mellitus with hyperglycemia[ICD10: E11.65] Diagnosis: Intervertebral disc disorders with radiculopathy, 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] Diagnosis: Hormone replacement therapy[ICD10: Z79.890] MaríaE lena JUARES Fabiola APPIAH [employer] CPT-4: 14569 01/22/2019 ([id number]) OFFICE/OUTPATIENT VISIT EST Diagnosis: Essential (primary) hypertension[ICD10: I10] Diagnosis: Type 2 diabetes mellitus with hyperglycemia[ICD10: E11.65] María Elena MONTEROQUELINE Fabiola APPIAH [employer] CPT-4: 37323 09/30/2018 ([id number]) OFFICE/OUTPATIENT VISIT EST Diagnosis: Pain in left elbow[ICD10: M25.522] Diagnosis: Acute stress reaction[ICD10: F43.0] Diagnosis: Primary insomnia[ICD10: F51.01] Diagnosis: Abnormal weight gain[ICD10: R63.5] María Elena JEAN TechozJj APPIAH [facility] CPT-4: 00531 08/27/2018 ([id number]) OFFICE/OUTPATIENT VISIT EST Diagnosis: Acute recurrent sinusitis, 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: J01.91] Diagnosis: Follicular disorder, 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: L73.9] Diagnosis: Tinea corporis[ICD10: B35.4] María Elena APPIAH [facility] CPT-4: 29506 08/09/2018 ([id number]) OFFICE/OUTPATIENT VISIT EST Diagnosis: Tinea corporis[ICD10: B35.4] Diagnosis: Anxiety disorder, 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: F41.9] Diagnosis: Menopausal and female climacteric states[ICD10: N95.1] María Elena APPIAH [facility] CPT-4: 84548 07/22/2018 ([id number]) NURSE/OUTPATIENT VISIT EST Diagnosis: Cellulitis of right toe[ICD10: L03.031] María Elena APPIAH [facility] CPT-4: 75396 06/19/2018 ([id number]) OFFICE/OUTPATIENT VISIT EST Diagnosis: Cellulitis of right toe[ICD10: L03.031] Kathleen APPIAH [facility] CPT-4: 93727 06/17/2018 ([id number]) OFFICE/OUTPATIENT VISIT EST Diagnosis: Migraine without aura, intractable, without status migrainosus[ICD10: G43.019] Diagnosis: Zoster without complications[ICD10: B02.9] Kathleen APPIAH [facility] CPT-4: 46710 05/16/2018 ([id number]) OFFICE/OUTPATIENT VISIT EST Diagnosis: Cellulitis of right lower limb[ICD10: L03.115] Kathleen APPIAH [facility] CPT-4: 58222 03/20/2018 ([id number]) OFFICE/OUTPATIENT VISIT EST Diagnosis: Cellulitis of right lower limb[ICD10: L03.115] Kathleen APPIAH [facility] CPT-4: 96383 03/18/2018 ([id number]) OFFICE/OUTPATIENT VISIT EST Diagnosis: Cellulitis of right lower limb[ICD10: L03.115] Kathleen APPIAH [facility] CPT-4: 03830 03/15/2018 ([id number]) OFFICE/OUTPATIENT VISIT EST Diagnosis: Acute sinusitis, 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: J01.90] Kathleen APPIAH [facility] CPT-4: 88639 02/11/2018 ([id number]) NURSE/OUTPATIENT VISIT EST Diagnosis: Otitis media, unspecified, right ear[ICD10: H66.91] María Elena APPIAH [facility] CPT-4: 21109 02/01/2018 ([id number]) OFFICE/OUTPATIENT VISIT EST Diagnosis: Acute suppurative otitis media without spontaneous rupture of ear drum, left ear[ICD10: H66.002] Diagnosis: Abnormal weight gain[ICD10: R63.5] Diagnosis: Intervertebral disc disorders with radiculopathy, 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] Kathleen APPIAH [facility] CPT-4: 99 214 01/30/2018 ([id number]) PREV VISIT EST AGE 40-64 Diagnosis: Encounter for general adult medical examination without abnormal findings[ICD10: Z00.00] Diagnosis: Essential (primary) hypertension[ICD10: I10] Diagnosis: Mixed hyperlipidemia[ICD10: E78.2] Diagnosis: Type 2 diabetes mellitus with hyperglycemia[ICD10: E11.65] Diagnosis: 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] María Elena APPIAH [employer] [facility] CPT-4: 11636 12/18/2017 ([id number]) OFFICE/OUTPATIENT VISIT EST Diagnosis: Cellulitis of right toe[ICD10: L03.031] Diagnosis: Mixed hyperlipidemia[ICD10: E78.2] Diagnosis: Essential (primary) hypertension[ICD10: I10] Diagnosis: Hyperglycemia, 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: R73.9] Diagnosis: Nontoxic goiter, 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] María Elena APPIAH DO [facility] CPT-4: 04600 12/10/2017 ([id number]) OFFICE/OUTPATIENT VISIT EST Diagnosis: Cellulitis of right toe[ICD10: L03.031] Diagnosis: Acute sinusitis, 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: J01.90] Kathleen APPIAH DO [facility] CPT-4: 75821 12/07/2017 OFFICE/OUTPATIENT VISIT EST Diagnosis: Acute maxillary sinusitis, 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: J01.00] Kathleen APPIAH DO [facility] CPT-4: 06150 10/08/2017 ([id number]) OFFICE/OUTPATIENT VISIT EST Diagnosis: Cellulitis of left toe[ICD10: L03.032] María Elena APPIAH DO [facility] CPT-4: 00415 09/21/2017 ([id number]) OFFICE/OUTPATIENT VISIT EST Diagnosis: Insomnia, 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: G47.00] Diagnosis: Major depressive disorder, single episode, 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: F32.9] Diagnosis: Anxiety disorder, 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: F41.9] Diagnosis: Cellulitis of left toe[ICD10: L03.032] Diagnosis: Snoring[ICD10: R06.83] Kathleen APPIAH DO [facility] CPT-4: 51780 09/20/2017 ([id number]) OFFICE/OUTPATIENT VISIT EST Diagnosis: Cellulitis of left toe[ICD10: L03.032] María Elena APPIAH DO [facility] CPT-4: 46471 07/19/2017 OFFICE/OUTPATIENT VISIT EST Diagnosis: Chronic sinusitis, 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: J32.9] Diagnosis: Generalized hyperhidrosis[ICD10: R61] Kathleen APPIAH DO [facility] CPT-4: 49295 06/27/2017 ([id number]) OFFICE/OUTPATIENT VISIT EST Diagnosis: Intervertebral disc disorders with radiculopathy, 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] Diagnosis: Primary insomnia[ICD10: F51.01] Diagnosis: Other fatigue[ICD10: R53.83] María Elena APPIAH DO [facility] CPT-4: 96082 04/10/2017 ([id number]) OFFICE/OUTPATIENT VISIT EST Diagnosis: Primary insomnia[ICD10: F51.01] Diagnosis: Localized edema[ICD10: R60.0] Diagnosis: 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] María Elena APPIAH DO [facility] CPT-4: 92038 12/13/2016 ([id number]) OFFICE/OUTPATIENT VISIT EST Diagnosis: Primary insomnia[ICD10: F51.01] Diagnosis: Cyanosis[ICD10: R23.0] María Elena Bazzi [employer] CPT-4: 90745 11/01/2016 ([id number]) PREV VISIT EST AGE 40-64 Diagnosis: Encounter for gynecological examination (general) (routine) without abnormal findings[ICD10: Z01.419] Diagnosis: Encounter for routine child health examination without abnormal findings[ICD10: Z00.129] María Elena APPIAH [employer] CPT-4: 87123 10/17/2016 ([id number]) OFFICE/OUTPATIENT VISIT EST Diagnosis: Other seasonal allergic rhinitis[ICD10: J30.2] María Elena APPIAH [employer] CPT-4: 08583 10/10/2016 ([id number]) OFFICE/OUTPATIENT VISIT EST Diagnosis: Pain in left arm[ICD10: M79.602] Diagnosis: Contact with and (suspected) exposure to potentially hazardous body fluids[ICD10: Z77.21] Diagnosis: 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, 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] Diagnosis: Unspecified open wound, right foot, sequela[ICD10: S91.301S] María Elena APPIAH [employer] CPT-4: 62738 09/19/2016 ([id number]) OFFICE/OUTPATIENT VISIT EST Diagnosis: Chronic sinusitis, 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: J32.9] Diagnosis: Allergic rhinitis due to pollen[ICD10: J30.1] María Elena APPIAH [employer] CPT-4: 27105 08/24/2016 ([id number]) OFFICE/OUTPATIENT VISIT EST Diagnosis: Acute bronchitis, 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: J20.9] María Elena APPIAH DO [facility] CPT-4: 80960 08/16/2016 ([id number]) OFFICE/OUTPATIENT VISIT EST Diagnosis: Otitis media, unspecified, right ear[ICD10: H66.91] Diagnosis: Acute bronchitis, 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: J20.9] María Elena APPIAH DO [facility] CPT-4: 01469 08/10/2016 ([id number]) OFFICE/OUTPATIENT VISIT EST Diagnosis: Acute recurrent sinusitis, 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: J01.91] Diagnosis: Allergic rhinitis due to pollen[ICD10: J30.1] María Elena APPIAH DO [facility] CPT-4: 31103 08/02/2016 ([id number]) OFFICE/OUTPATIENT VISIT EST Diagnosis: Pain in unspecified joint[ICD10: M25.50] María Elena APPIAH DO [facility] CPT-4: 08433 07/27/2016 OFFICE/OUTPATIENT VISIT EST Diagnosis: 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] Diagnosis: Acute recurrent sinusitis, 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: J01.91] Diagnosis: Other fatigue[ICD10: R53.83] Diagnosis: Primary insomnia[ICD10: F51.01] Diagnosis: Pain in unspecified joint[ICD10: M25.50] María Elena APPIAH DO [facility] CPT-4: 20779 07/20/2016 ([id number]) OFFICE/OUTPATIENT VISIT EST Diagnosis: Blister (nonthermal), left great toe, initial encounter[ICD10: S90.422A] Loan APPIAH DO [facility] CPT-4: 84687 ([id number]) OFFICE/OUTPATIENT VISIT EST Diagnosis: Acute recurrent sinusitis, 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: J01.91] María Elena APPIAH DO [facility] CPT-4: 23445 05/25/2016 ([id number]) OFFICE/OUTPATIENT VISIT EST Diagnosis: Acute sinusitis, 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: J01.90] María Elena APPIAH DO [facility] CPT-4: 16571 04/26/2016 ([id number]) OFFICE/OUTPATIENT VISIT EST Diagnosis: Flushing[ICD10: R23.2] Diagnosis: Primary insomnia[ICD10: F51.01] María Elena APPIAH DO [facility] CPT-4: 41821 03/02/2016 ([id number]) OFFICE/OUTPATIENT VISIT EST Diagnosis: Other seasonal allergic rhinitis[ICD10: J30.2] Loan APPIAH DO [facility] CPT-4: 71733 02/09/2016 ([id number]) OFFICE/OUTPATIENT VISIT EST Diagnosis: Primary insomnia[ICD10: F51.01] Diagnosis: Urinary tract infection, site not specified[ICD10: N39.0] María Elena APPIAH DO [facility] CPT-4: 65356 01/24/2016 ([id number]) OFFICE/OUTPATIENT VISIT EST Diagnosis: Other specified disorders of Eustachian tube, bilateral[ICD10: H69.83] Diagnosis: Allergic rhinitis, 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: J30.9] Loan APPIAH [facility] CPT-4: 03045 12/23/2015 ([id number]) OFFICE/OUTPATIENT VISIT EST Diagnosis: Acute recurrent sinusitis, 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: J01.91] Diagnosis: 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] Diagnosis: Allergic rhinitis, 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: J30.9] María Elena APPIAH [facility] CPT-4: 10716 12/08/2015 ([id number]) OFFICE/OUTPATIENT VISIT EST Diagnosis: Allergic rhinitis, 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: J30.9] Diagnosis: Pain in unspecified joint[ICD10: M25.50] María Elena APPIAH [facility] CPT-4: 45423 10/07/2015 ([id number]) OFFICE/OUTPATIENT VISIT EST Diagnosis: Essential (primary) hypertension[ICD10: I10] María Elena APPIAH DO [facility] CPT-4: 34462 10/06/2015 OFFICE/OUTPATIENT VISIT EST Diagnosis: Localized enlarged lymph nodes[ICD10: R59.0] Diagnosis: Local infection of the skin and subcutaneous tissue, 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: L08.9] June APPIAH DO [facility] CPT- 4: 92762 09/14/2015 ([id number]) OFFICE/OUTPATIENT VISIT EST Diagnosis: Essential (primary) hypertension[ICD10: I10] Diagnosis: Actinic keratosis[ICD10: L57.0] María Elena APPIAH DO [facility] CPT-4: 27779 09/07/2015 ([id number]) OFFICE/OUTPATIENT VISIT EST Diagnosis: Essential (primary) hypertension[ICD10: I10] Diagnosis: Acute stress reaction[ICD10: F43.0] María Elena APPIAH DO [facility] CPT-4: 89455 08/18/2015 ([id number]) OFFICE/OUTPATIENT VISIT EST Diagnosis: Essential (primary) hypertension[ICD10: I10] María Elena APPIAH DO [facility] CPT-4: 06571 07/07/2015 ([id number]) OFFICE/OUTPATIENT VISIT EST Diagnosis: Essential (primary) hypertension[ICD10: I10] María Elena APPIAH DO [facility] CPT-4: 67562 06/24/2015 ([id number]) OFFICE/OUTPATIENT VISIT EST Diagnosis: Essential (primary) hypertension[ICD10: I10] María Elena APPIAH DO [facility] CPT-4: 30813 06/21/2015 ([id number]) OFFICE/OUTPATIENT VISIT EST Diagnosis: Essential (primary) hypertension[ICD10: I10] Diagnosis: Mixed hyperlipidemia[ICD10: E78.2] Diagnosis: Acute stress reaction[ICD10: F43.0] Diagnosis: Primary insomnia[ICD10: F51.01] María Elena APPIAH DO [facility] CPT-4: 42559 06/16/2015 ([id number]) OFFICE/OUTPATIENT VISIT EST Diagnosis: INSOMNIA NOS[ICD9: 780.52] Diagnosis: HYPERTENSION[ICD9: 401.9] Diagnosis: Stress reaction[ICD9: 308.9] María Elena APPIAH DO [facility] CPT-4: 81660 06/02/2015 ([id number]) OFFICE/OUTPATIENT VISIT EST Diagnosis: HYPERTENSION[ICD9: 401.9] Diagnosis: Stress reaction[ICD9: 308.9] María Elena APPIAH [facility] CPT-4: 30210 05/20/2015 ([id number]) OFFICE/OUTPATIENT VISIT EST Diagnosis: Skin lesion[ICD9: 709.9] 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] María Elena APPIAH [facility] CPT-4: 74275 05/10/2015 ([id number]) OFFICE/OUTPATIENT VISIT EST Diagnosis: SINUSITIS, ACUTE[ICD9: 461.9] Diagnosis: ALLERGIC RHINITIS[ICD9: 477.9] Diagnosis: DERMATITIS NOS[ICD9: 692.9] María Elena REHMAN [facility] CPT-4: 21179 03/16/2015 OFFICE/OUTPATIENT VISIT EST Diagnosis: Otitis media[ICD9: 382.9] Diagnosis: SINUSITIS, ACUTE[ICD9: 461.9] June VelozAlbertadaniella APPIAH [facility] CPT-4: 78456 09/11/2014 ([id number]) OFFICE/OUTPATIENT VISIT EST Diagnosis: HYPERLIPIDEMIA NEC/NOS[ICD9: 272.4] María Elena APPAIH [facility] CPT-4: 91021 08/31/2014 ([id number]) OFFICE/OUTPATIENT VISIT EST Diagnosis: - I - HYPERTENSION[ICD9: 401.9] Diagnosis: HYPERLIPIDEMIA NEC/NOS[ICD9: 272.4] María Elena APPIAH [facility] CPT-4: 57715 08/27/2014 ([id number]) OFFICE/OUTPATIENT VISIT EST Diagnosis: ABDOMINAL PAIN[ICD9: 789.00] Diagnosis: DYSPEPSIA[ICD9: 536.8] Diagnosis: Thoracic back pain[ICD9: 724.1] María Elena APPIAH [facility] CPT-4: 90399 07/21/2014 ([id number]) OFFICE/OUTPATIENT VISIT EST Diagnosis: ALLERGIC RHINITIS[ICD9: 477.9] María Elena APPIAH [facility] CPT-4: 26818 07/15/2014 ([id number]) OFFICE/OUTPATIENT VISIT EST Diagnosis: EDEMA[ICD9: 782.3] Diagnosis: Chronic insomnia[ICD9: 780.52] María Elena APPIAH [facility] CPT-4: 40459 05/18/2014 ([id number]) OFFICE/OUTPATIENT VISIT EST Diagnosis: Thyromegaly[ICD9: 240.9] Diagnosis: - I - HYPERTENSION[ICD9: 401.9] Diagnosis: ROUTINE MEDICAL EXAM[ICD9: V70.0] Diagnosis: EDEMA[ICD9: 782.3] María Elena APPIAH [facility] CPT-4: 46211 05/14/2014 OFFICE/OUTPATIENT VISIT EST Diagnosis: BRONCHITIS, ACUTE[ICD9: 466.0] Diagnosis: SINUSITIS, ACUTE[ICD9: 461.9] María Elena APPIAH [facility] CPT-4: 62319 04/21/2014 OFFICE/OUTPATIENT VISIT EST Diagnosis: SINUSITIS, ACUTE[ICD9: 461.9] June Sandra MARÍA ELENA APPIAH [facility] CPT-4: 68718 03/04/2014 ([id number]) OFFICE/OUTPATIENT VISIT EST Diagnosis: VACCINE FOR TDAP[ICD10: Z23] María Elena APPIAH [facility] CPT-4: 11087 02/27/2014 ([id number]) OFFICE/OUTPATIENT VISIT EST Diagnosis: Seborrheic keratoses, inflamed[ICD9: 702.11] Diagnosis: ACTINIC KERATOSIS[ICD9: 702.0] Diagnosis: INSOMNIA NOS[ICD9: 780.52] María Elena PANDYA [facility] CPT-4: 65163 01/13/2014 OFFICE/OUTPATIENT VISIT EST 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] Diagnosis: ALLERGIC RHINITIS[ICD9: 477.9] Diagnosis: Serous otitis media[ICD9: 381.4] María Elena APPIAH [facility] CPT-4: 34906 12/24/2013 ([id number]) OFFICE/OUTPATIENT VISIT EST Diagnosis: SINUSITIS, ACUTE[ICD9: 461.9] Diagnosis: ALLERGIC RHINITIS[ICD9: 477.9] 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] María Elena APPIAH DO [facility] CPT-4: 92534 11/12/2013 ([id number]) OFFICE/OUTPATIENT VISIT EST Diagnosis: ALLERGIC RHINITIS[ICD9: 477.9] Diagnosis: SINUSITIS, ACUTE[ICD9: 461.9] María Elena APPIAH DO [facility] CPT-4: 78651 10/21/2013 ([id number]) OFFICE/OUTPATIENT VISIT EST Diagnosis: ASYMPTOMATIC VARICOSE VEINS[ICD9: 454.9] Diagnosis: INSOMNIA NOS[ICD9: 780.52] María Elena PANDYA [facility] CPT-4: 75495 09/22/2013 OFFICE/OUTPATIENT VISIT EST Diagnosis: SINUSITIS, ACUTE[ICD9: 461.9] June Washingtongurmeetfatimah MARÍA ELENA APPIAH [facility] CPT-4: 61476 08/27/2013 ([id number]) OFFICE/OUTPATIENT VISIT EST Diagnosis: CEPHALGIA[ICD9: 784.0] Diagnosis: CEPHALGIA, TENSION[ICD9: 307.81] 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] María Elena APPIAH [facility] CPT-4: 33328 08/04/2013 ([id number]) OFFICE/OUTPATIENT VISIT EST Diagnosis: Cervicalgia[ICD9: 723.1] Diagnosis: SPASM OF MUSCLE[ICD9: 728.85] Diagnosis: CEPHALGIA, TENSION[ICD9: 307.81] María Elena APPIAH [facility] CPT-4: 88599 07/23/2013 ([id number]) OFFICE/OUTPATIENT VISIT EST 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] Diagnosis: ALLERGIC RHINITIS[ICD9: 477.9] María Elena APPIAH [facility] CPT-4: 00349 06/23/2013 ([id number]) OFFICE/OUTPATIENT VISIT EST Diagnosis: ALLERGIC RHINITIS[ICD9: 477.9] Diagnosis: ACUTE SEROUS OTITIS MEDIA[ICD9: 381.01] 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] María Elena Hicks TD [facility] CPT-4: 76282 05/26/2013 ([id number]) OFFICE/OUTPATIENT VISIT EST Diagnosis: HYPERTENSION[ICD9: 401.9] Diagnosis: EDEMA[ICD9: 782.3] Diagnosis: Serous otitis media[ICD9: 381.4] María Elena Hicks [facility] C[facility]: 43745 04/16/2013 ([id number]) OFFICE/OUTPATIENT VISIT EST Diagnosis: SINUSITIS, ACUTE[ICD9: 461.9] Diagnosis: ALLERGIC RHINITIS[ICD9: 477.9] Diagnosis: EDEMA[ICD9: 782.3] Diagnosis: Thyromegaly[ICD9: 240.9] Diagnosis: MALAISE AND FATIGUE[ICD9: 780.79] María Elena Hicks [facility] CPT-4: 18737 03/05/2013 ([id number]) OFFICE/OUTPATIENT VISIT EST Diagnosis: PAIN, LOWER BACK[ICD9: 724.2] Diagnosis: SPASM OF MUSCLE[ICD9: 728.85] María Elena [facility]: 90922 12/23/2012 OFFICE/OUTPATIENT VISIT EST Diagnosis: Low back pain[ICD9: 724.2] Lashawn Hicks [facility] CPT-4: 27670 12/16/2012 ([id number]) OFFICE/OUTPATIENT VISIT EST Diagnosis: PAIN, LOWER BACK[ICD9: 724.2] Diagnosis: SCIATICA[ICD9: 724.3] Diagnosis: Lumbar herniated disc[ICD9: 722.10] María Elena Hicks [facility] C[facility]: 12934 12/09/2012 ([id number]) OFFICE/OUTPATIENT VISIT EST Diagnosis: PAIN, LOWER BACK[ICD9: 724.2] Diagnosis: SCIATICA[ICD9: 724.3] Diagnosis: LUMBAR DISC DISPLACEMENT[ICD9: 722.10] María Elena ISAAC TANIA APPIAH DO [facility] CPT-4: 30855 12/04/2012 OFFICE/OUTPATIENT VISIT EST Diagnosis: Pneumonia[ICD9: 486] Mary SerranoRustam MARÍA ELENA APPIAH DO [facility] CPT-4: 30304 11/22/2012 ([id number]) OFFICE/OUTPATIENT VISIT EST Diagnosis: PNEUMONIA, ORGANISM[ICD9: 486] Diagnosis: Exacerbation of RAD (reactive airway disease)[ICD9: 493.92] María Elena APPIAH DO [facility] CPT-4: 42005 11/21/2012 OFFICE/OUTPATIENT VISIT EST Diagnosis: HYPERTENSION[ICD9: 401.9] Diagnosis: Cephalgia[ICD9: 784.0] Lashawn Eckert MARÍA ELENA APPAIH DO [facility] CPT-4: 02297 10/29/2012 ([id number]) OFFICE/OUTPATIENT VISIT EST Diagnosis: MALAISE AND FATIGUE[ICD9: 780.79] Diagnosis: ARTHRALGIA-MULTIPLE SITES[ICD9: 719.49] María Elena APPIAH DO [facility] CPT-4: 33955 10/14/2012 ([id number]) OFFICE/OUTPATIENT VISIT EST Diagnosis: URINARY FREQUENCY[ICD9: 788.41] María Elena APPIAH DO [facility] CPT-4: 84763 09/27/2012 ([id number]) OFFICE/OUTPATIENT VISIT EST Diagnosis: MALAISE AND FATIGUE[ICD9: 780.79] Diagnosis: ARTHRALGIA-MULTIPLE SITES[ICD9: 719.49] María Elena Seamusmindimaryjane APPIAH DO [facility] CPT-4: 35016 09/25/2012 ([id number]) OFFICE/OUTPATIENT VISIT EST Diagnosis: SINUSITIS, ACUTE[ICD9: 461.9] 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] María Elena Td APPIAH DO [facility] CPT-4: 78260 08/29/2012 OFFICE/OUTPATIENT VISIT EST Diagnosis: ACTINIC KERATOSIS[ICD9: 702.0] Diagnosis: Inflamed seborrheic keratosis[ICD9: 702.11] Diagnosis: Skin cancer of face[ICD9: 173.31] Diagnosis: HYPERTENSION[ICD9: 401.9] María Elena WAY NDER [facility] CPT-4: 94399 08/12/2012 ([id number]) OFFICE/OUTPATIENT VISIT EST Diagnosis: ARTHRALGIA-MULTIPLE SITES[ICD9: 719.49] Diagnosis: GOUT[ICD9: 274.9] Diagnosis: HYPERTENSION[ICD9: 401.9] Diagnosis: Tachycardia[ICD9: 785.0] María Elena HU KARLOS [facility] CPT-4: 93155 05/06/2012 ([id number]) OFFICE/OUTPATIENT VISIT EST Diagnosis: INSOMNIA NOS[ICD9: 780.52] María Elena KENTER [facility] CPT-4: 51187 04/03/2012 ([id number]) OFFICE/OUTPATIENT VISIT EST Diagnosis: INSOMNIA NOS[ICD9: 780.52] Diagnosis: HYPERTENSION[ICD9: 401.9] Diagnosis: MIGRAINE NOS/NOT INTRCBL[ICD9: 346.90] María Elena Waymindimaryjane CulverJARED SJj [facility] C[facility]: 71143 03/19/2012 ([id number]) OFFICE/OUTPATIENT VISIT EST Diagnosis: CELLULITIS[ICD9: 682.9] Diagnosis: Ankle pain[ICD9: 719.47] Diagnosis: HYPERTENSION[ICD9: 401.9] María Elena WAY NDERose Mary [facility] CPT-4: 78560 02/20/2012 ([id number]) OFFICE/OUTPATIENT VISIT EST Diagnosis: MIGRAINE NOS/NOT INTRCBL[ICD9: 346.90] Diagnosis: Vomiting[ICD9: 787.03] María Elena TANNER R [facility] CPT-4: 50457 01/30/2012 ([id number]) OFFICE/OUTPATIENT VISIT EST Diagnosis: EDEMA[ICD9: 782.3] Diagnosis: HYPERTENSION[ICD9: 401.9] Diagnosis: ALLERGIC RHINITIS[ICD9: 477.9] Diagnosis: ARTHRALGIA-MULTIPLE SITES[ICD9: 719.49] María Elena Waymindimaryjane BRAUNALCIDES LucioJj SEAMUSNDER [facility] CPT-4: 63070 01/24/2012 ([id number]) OFFICE/OUTPATIENT VISIT EST Diagnosis: SPASM OF MUSCLE[ICD9: 728.85] Diagnosis: Thoracic back pain[ICD9: 724.1] Diagnosis: Cervical pain[ICD9: 723.1] María Elena Seamusmindimaryjane MARÍA ELENA Fabiola PANDYA [facility] CPT-4: 18499 01/10/2012 OFFICE/OUTPATIENT VISIT EST Diagnosis: PAIN, LOWER BACK[ICD9: 724.2] Diagnosis: LUMBAR DISC DISPLACEMENT[ICD9: 722.10] María Elena ISAAC TANIA ValdesJj TD [facility] CPT-4: 83051 12/11/2011 OFFICE/OUTPATIENT VISIT EST Diagnosis: MIGRAINE NOS/NOT INTRCBL[ICD9: 346.90] Diagnosis: SINUSITIS, ACUTE[ICD9: 461.9] María Elena Seamusmindimaryjane MARÍA ELENA LucioJj [facility] CPT-4: 22271 11/09/2011 OFFICE/OUTPATIENT VISIT EST Diagnosis: MIGRAINE NOS/NOT INTRCBL[ICD9: 346.90] Diagnosis: LYMPHADENOPATHY[ICD9: 785.6] María Elena Seamusmindimaryjane MARÍA ELENA LucioJj [facility] CPT-4: 64460 09/13/2011 OFFICE/OUTPATIENT VISIT EST Diagnosis: MALAISE AND FATIGUE[ICD9: 780.79] Diagnosis: ARTHRALGIA-MULTIPLE SITES[ICD9: 719.49] María Elena MONTERO APARNAALCIDES LucioJj [facility] CPT-4: 68971 08/31/2011 OFFICE/OUTPATIENT VISIT EST Diagnosis: SINUSITIS, ACUTE[ICD9: 461.9] María Elena Seamusabbey JUARES LucioJj TD [facility] CPT-4: 07403 07/20/2011 OFFICE/OUTPATIENT VISIT EST Diagnosis: HYPERTENSION[ICD9: 401.9] Diagnosis: PAIN, LOWER BACK[ICD9: 724.2] Diagnosis: SPASM OF MUSCLE[ICD9: 728.85] María Elena JUARES LucioJj TD [facility] CPT-4: 93379 07/06/2011 OFFICE/OUTPATIENT VISIT EST Diagnosis: MIGRAINE NOS/NOT INTRCBL[ICD9: 346.90] Diagnosis: HYPERTENSION[ICD9: 401.9] María Elena Hicks [facility] CPT-4: 97870 05/22/2011 OFFICE/OUTPATIENT VISIT EST Diagnosis: SINUSITIS, ACUTE[ICD9: 461.9] Diagnosis: MIGRAINE NOS/NOT INTRCBL[ICD9: 346.90] Diagnosis: Dehydration[ICD9: 276.51] Diagnosis: Vomiting[ICD9: 787.03] María Elena JUARES Fabiola ORENDE R DO [facility] CPT-4: 68000 05/09/2011 ([id number]) OFFICE/OUTPATIENT VISIT EST María Elena Seamusmindimaryjane ISAAC UELINE S. ORENDER DO [facility] CPT-4: 61304 02/14/2011 ([id number]) OFFICE/OUTPATIENT VISIT EST María Elena Seamusmindimaryjane ISAAC UELINE S. ORENDER DO [facility] CPT-4: 90085 02/03/2011 ([id number]) OFFICE/OUTPATIENT VISIT EST María Elena Seamusmindimaryjane ISAAC UELINE S. ORENDER DO [facility] CPT-4: 35994 01/31/2011 ([id number]) OFFICE/OUTPATIENT VISIT EST María Elena Seamusmindimaryjane ISAAC UELINE S. ORENDER DO [facility] CPT-4: 35230 01/25/2011 ([id number]) OFFICE/OUTPATIENT VISIT EST María Elena Seamusmindimaryjane ISAAC UELINE S. ORENDER DO [facility] CPT-4: 18597 01/18/2011 ([id number]) OFFICE/OUTPATIENT VISIT EST María Elena ISAAC UELINE S. ORENDER DO [facility] CPT-4: 89364 11/29/2010 ([id number]) OFFICE/OUTPATIENT VISIT, EST María Elena MONTERO QUEALCIDES S. ORENDER DO [facility] CPT-4: 66321 10/10/2010 ([id number]) OFFICE/OUTPATIENT VISIT, EST María Elena MONTERO APARNAALCIDES S. ORENDER DO [facility] CPT-4: 26903 06/07/2010 ([id number]) OFFICE/OUTPATIENT VISIT, EST María Elena MONTERO QUEALCIDES S. ORENDER DO [facility] CPT-4: 24309 04/27/2010 ([id number]) OFFICE/OUTPATIENT VISIT, EST María Elena MONTERO APARNAALCIDES S. ORENDER DO [facility] CPT-4: 79917 04/05/2010 ([id number]) OFFICE/OUTPATIENT VISIT, EST María Elena APPIAH DO [facility] CPT-4: 06541 03/09/2010 ([id number]) OFFICE/OUTPATIENT VISIT, EST María Elena APPIAH DO [facility] CPT-4: 22598 03/03/2010 ([id number]) OFFICE/OUTPATIENT VISIT, EST María Elena APPIAH DO [facility] CPT-4: 82701 01/17/2010 ([id number]) PREV VISIT, EST, AGE 40-64 María Elena APPIAH DO [facility] CPT-4: 99094 12/27/2009 Plan of Care Planned Activity Notes Codes Status Date Visit Diagnosis Plan: Lower extremity edema Discussion [...] ICD-10 : S90.821A 02/12/2020 Appointment: Kathleen Zuniga [address] [place], [place] [phone] ACUTE ILLNESS 02/12/2020 Visit Diagnosis Plan: Essential [...] E11.65 01/13/2020 Appointment: María Elena Appiah WPtel: [address] [place], [place] [id number] [place] FOLLOW UP 01/13/2020 Patient Education: lisinopril- [employer] [id number] Completed 01/13/2020 Patient Education: glimepiride- [employer] [id number] Completed 01/13/2020 Appointment: María Elena [facility] [facility] 11/26/2019 Visit Diagnosis Plan: Type 2 diabetes mellitus with hy perglycemia Discussion: Januvia 100mg daily Glimepride 2mg po BID Accuchecks BID Call in 2 weeks with BS readings Get formulary book ICD-9 : 250.02 ICD-10 : E11.65 11/20/2019 Appointment: María Elena Appiah WPtel[facility] [facility] 11/20/2019 Patient Education: glimepiride- [employer] [id number] Completed 11/20/2019 Patient Education: Januvia- [employer] [id number] Completed 11/20/2019 Visit Diagnosis Plan: Ingrowing nail Discussion: discu ssed with patient that she needs to [...] ICD-10 : E11.65 10/07/2019 Appointment: Kathleen Zuniga [address] [place], [place] [id number] [facility] US OFFICE SURGERY 10/07/2019 Visit Diagnosis Plan: Hypertriglyceridemia [...] ICD-10 : E11.65 09/30/2019 Appointment: María Elena Appiahtel: [address] [place], [place] [phone] [place] CHECK UP 09/30/2019 Patient Education: Premarin- [employer] [id number] [email or web address] Completed 09/30/2019 Appointment: María Elena Appiah WPtel: [address] [place], [place] [phone] US LAB 09/29/2019 Appointment: María Elena Appiah WPtel: [address] [place], [place] [phone] Won't have the new insurance till Sep [...] W06.XXXS 05/28/2019 Appointment: María Elena Appiah WPtel: [address] [place], [place] [phone] US FOLLOW UP 05/28/2019 Appointment: María Elena Appiah WPtel: [address] [place] [address] US BP CHECK 05/19/2019 Visit Diagnosis Plan: [...] Z79.890 01/22/2019 Appointment: María Elena Appiah WPtel: [address] [place], [place] [phone] [place] FOLLOW UP 01/22/2019 Patient Education: estradiol- [employer] [id number] [email or web address]/[email or web address] Completed 01/22/2019 Appointment: María Elena Appiah WPtel: [address] [place], [place] [phone] [place] CANCELED 01/20/2019 Appointment: María Elena Appiah WPtel: [address] [place], [place] [phone] [place] LM NO SHOW 01/06/2019 Appointment: María Elena Appiah WPtel: [address] [place], [place] [phone] [place] CANCELED 10/17/2018 Appointment: María Elena Appiah WPtel: [address] [place], [place] [phone] [place] BP CHECK 10/09/2018 Visit Diagnosis Plan: [...] I10 09/30/2018 Appointment: María Elena Appiah WPtel: [address] [place], [place] [phone] US FOLLOW UP 09/30/2018 Visit Diagnosis Plan: [...] F51.01 08/27/2018 Appointment: María Elena Appiah WPtel: [address] [place], [place] [phone] ACUTE ILLNESS 08/27/2018 Appointment: María Elena Appiah WPtel: [address] [place] [address] [place] Patient stated she went out to [...] prn. Tyle... 08/09/2018 Appointment: María Elena Appiahtel: [address] [place] [address] ACUTE ILLNESS 08/09/2018 Appointment: María Elena Appiah WPtel: [address] [place] [address] NO SHOW 08/08/2018 Visit Diagnosis Plan: Anxiety disorder, unspecified Di scussion: Trial of doxepin 25mg at HS for sleep ICD-9 : 300.00 ICD-10 : [...] ICD-10 : B35.4 07/22/2018 Appointment: María Elena Appiahtel: [address] [place], [place] [id number] ACUTE ILLNESS 07/22/2018 Appointment: María Elena Appiahtel: [address] [place] [address] US INJECTION 06/19/2018 Patient Education: Patient Medication [...] ICD-10 : L03.031 06/17/2018 Appointment: Kathleen Zuniga [address] [facility] ACUTE ILLNESS 06/17/2018 Patient Education: Patient Medication [...] ICD-10 : B02.9 05/16/2018 Appointment: Kathleen Zuniga [address] [facility] ACUTE ILLNESS 05/16/2018 Patient Education: Patient Medication [...] ICD-10 : L03.115 03/20/2018 Appointment: Kathleen Zuniga [address] [facility] FOLLOW UP 03/20/2018 Patient Education: Patient Medication [...] ICD-10 : L03.115 03/18/2018 Appointment: Kathleen Zuniga [address] [place], [place] [id number] FOLLOW UP 03/18/2018 Patient Education: Patient Medication [...] ICD-10 : L03.115 03/15/2018 Appointment: Kathleen Zuniga [address] [place], [place] [id number] ACUTE ILLNESS 03/15/2018 Patient Education: Patient Medication [...] ICD-10 : J01.90 02/11/2018 Appointment: Kathleen Zuniga [address] [place] [id number] ACUTE ILLNESS 02/11/2018 Patient Education: Patient Medication Summary Completed 02/11/2018 Appointment: María Elena Appiha WPtel: [address] [facility] US INJECTION 02/01/2018 Patient Education: Patient Medication Summary [...] ICD-10 : M51.16 01/30/2018 Appointment: Kathleen Zuniga [address] [place], [place] [id number] ACUTE ILLNESS 01/30/2018 Patient Education: Patient Medication [...] ICD-10 : E11.65 12/18/2017 Appointment: María Elena Appiahl: [address] [facility] Annual Well Visit 12/18/2017 Patient Education: Patient Medication Summary Completed 12/18/2017 Care Plan: Referral Order SNOMED-CT : [id number] Pending 12/18/2017 Appointment: María Elena Appiah WPtel: [address] [address] [place] INJECTION 12/10/2017 Patient Education: Patient Medication Summary [...] ICD-10 : L03.031 12/07/2017 Appointment: Kathleen Zuniga [address] [place] [address] ACUTE ILLNESS 12/07/2017 Patient Education: Patient Medication [...] ICD-10 : J01.00 10/08/2017 Appointment: Kathleen Zuniga [address] ACUTE ILLNESS 10/08/2017 Patient Education: Patient Medication Summary Completed 10/08/2017 Appointment: María Elena Appiah WPtel: [address] [id number] [place] INJECTION 09/21/2017 Patient Education: Patient Medication [...] ICD-10 : R06.83 09/20/2017 Appointment: Kathleen Zuniga [address] [place], [place] [id number] ACUTE ILLNESS 09/20/2017 Patient Education: Patient Medication [...] ICD-10 : L60.0 08/29/2017 Appointment: Kathleen Zuniga [address] [place], [place] [id number] OFFICE SURGERY 08/29/2017 Patient Education: Patient Medication Summary Completed 08/29/2017 Visit Diagnosis Plan: Actinic keratosis Discussion: Cr yotherapy as above ICD-9 : 702.0 ICD-10 : L57.0 08/01/2017 Appointment: María Elena Appiah WPtel: [address] [place] [address] OFFICE SURGERY 08/01/2017 Patient Education: Patient Medication Summary Completed 08/01/2017 Appointment: María Elena Appiah WPtel: [address] [place] [address] PATIENT THOUGHT APPOINTMENT WAS TOMORROW 07/26/17 CALLED 15 MINUTES BEFORE APPT TO SAY SHE DIDN'T HAVE ANYONE TO COVER HER BUSINESS AND WOULD NOT MAKE IT NO SHOW 07/25/2017 Visit Diagnosis Plan: Cellulitis of left toe Discussio n: Clindamycin and notify if worsening or persistis ICD-9 : 681.10 ICD-10 : L03.032 07/19/2017 Appointment: María Elena Appiah WPtel: [address] [place], [place] [phone] MEDICATION REVIEW 07/19/2017 Patient Education: Patient Medication Summary Completed 07/19/2017 Appointment: María Elena Appiah WPtel: [address] [place], [place] [phone] [place] CANCELED 07/04/2017 Visit Diagnosis Plan: Generalized hyperhidrosis Discus ian: CBC, CMP, TSH, free T4 ordered to assess. will review labs. ICD-9 : 780.8 ICD-10 : R61 06/27/2017 Visit Diagnosis Plan: Chronic sinusitis, unspecified D iscussion: Referral sent to dr. verena in [place] per patient request. patient has been treated multiple times for sinus infections with no recovery. patient was seen by dr sanchez in the past with no interventions. patient has deviated septum which may be affecting her sinuses. 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, including hip Discussion: Shave removal of above lesio n--sent to pathology ICD-9 : 216.7 ICD-10 : D23.72 01/24/2017 Appointment: María Elena Appiah WPtel: [address] [place] [address] 01/23 confirmed ~sl OFFICE SURGERY 01/24/2017 Patient Education: Patient Medication Summary Completed 01/24/2017 Appointment: Loan Sánchez [address] [place] [address] 01/09 rescheduled~sl RESCHEDULED 01/15/2017 Visit Diagnosis Plan: Localized edema Discussion: Reich ge metolazone to lasix with potassium prn ICD-9 : 782.3 ICD-10 : R60.0 12/13/2016 Visit Diagnosis Plan: Primary insomnia Discussion: Dis tavares Hernández but at this time patient wants to hold on trying any new meds and would like to try to decrease meds ICD-9 : 780.52 ICD-10 : F51.01 12/13/2016 Visit Diagnosis Plan: Other melanin hyperpigmentation Discussion: Monitor/Observe Sunscreen ICD-9 : 709.09 ICD-10 : L81.4 12/13/2016 Appointment: María Elena Appiah WPtel: [address] [place], [place] [phone] 12/12 confirmed ~ MEDICATION REVIEW 12/13/2016 Patient Education: Patient Medication Summary Completed 12/13/2016 Appointment: María Elena Appiah WPtel: [address] [place], [place] [id number] [place] rescheduled for 12/13/16 at 11am RESCHEDULED 0 12/06/2016 Appointment: María Elena Appiah WPtel: [address] [place] [id number] [place] CANCELED 11/23/2016 Patient Education: Patient Medication [...] F51.01 11/01/2016 Appointment: María Elena Appiah WPtel: [address] [place] [id number] 10/31 lm `sl 2/22 lm`sl MEDICATION REVIEW 017 Patient Education: Patient Medication Summary Completed 11/01/2016 Referral: Tian Canelo [place] WPtel: [phone] [id number] [place] Referral Initiated 10/30/2016 Visit Diagnosis Plan: [...] Z01.419 10/17/2016 Appointment: María Elena Appiah WPtel: [address] [place], [place] [phone] [place] 10/16 confirmed ~sl PAP 10/17/2016 Patient Education: Patient Medication Summary Completed 10/17/2016 Care Plan: MAMMOGRAM SCREENING LOINC : 2 6347-5 Pending 10/17/2016 Visit Diagnosis Plan: Other seasonal allergic rhinitis Discussion: Decadron/Garamycin Nasal [place] Mix Too soon for steroid Retry zyrtec 10mg daily ICD-9 : 477.9 ICD-10 : J30.2 10/10/2016 Appointment: María Elena Appiah WPtel: [address] [place] [id number] [place] FOLLOW UP 10/10/2016 Patient Education: Patient Medication Summary Completed 10/10/2016 Appointment: María Elena Appiah WPtel: [address] [place] [id number] 10/02 reschedule `sl RESCHEDULED 10/02/2016 Visit Plan: See surgery for removal of n ew left arm lesion and right foot lesion Lyrica to use next month for left arm paresthesias Continue current meds Discussed sunscreen/sunblock combo 09/19/2016 Appointment: María Elena Appiah WPtel: [address] [place], [place] [phone] 09/18 confirmed ~sl FOLLOW UP 09/19/2016 Patient Education: Patient Medication Summary Completed 09/19/2016 Patient Education: Patient Medication Summary Completed 09/18/2016 Care Plan: MAMMOGRAM BOTH BREASTS LOINC : 85507-7 Pending 09/18/2016 Visit Plan: Discussed that needs [...] sinuses 08/24/2016 Appointment: María Elena Appiah WPtel: [address] [place] [address] ACUTE ILLNESS 08/24/2016 Patient Education: Patient Medication Summary Completed 08/24/2016 Patient Education: Patient Medication Summary Completed 08/23/2016 Care Plan: MAMMOGRAM SCREENING LOINC : 2 6347-5 Pending 08/23/2016 Visit Plan: Finish doxycycline Add Breo 100/25 1 p BID for 2 weeks If not improving within next 2 days will get CXR 08/16/2016 Appointment: María Elena Appiah WPtel: [address] [place] [address] ACUTE ILLNESS 08/16/2016 Patient Education: Patient Medication Summary Completed 08/16/2016 Visit Plan: Supportive care. Rest, Fluid s, Tylenol/Motrin prn fever or bodyaches. Notify if worsening symptoms. Doxycyline and Prednisone 08/10/2016 Appointment: María Elena Appiah WPtel: [address] [place], [place] [id number] 08/09 lm`sl....confirmed-sp FOLLOW UP 09/2015 Patient Education: Patient Medication Summary Completed 08/10/2016 Visit Plan: Saline nasal flushes prn. Ty lenol/Motrin prn headache. Notify if persists/symptoms worsening. Dexamethasone 8mg IM today May use coricedan and mucinex 08/02/2016 Appointment: María Elena Appiah WPtel: [address] [place], [place] [phone] ACUTE ILLNESS 08/02/2016 Patient Education: Patient Medication Summary Completed 08/02/2016 Visit Plan: Cryotherapy as above and lef t forearm lesion removal as above with 5-0 punch biopsy and sent to path Return in 10 days for suture removal 08/01/2016 Appointment: María Elena Appiah WPtel: [address] [place], [place] [id number] 07/31 confirmed`~ OFFICE SURGERY 08/01/2016 Patient Education: Patient Medication Summary Completed 08/01/2016 Visit Plan: Stop clindamycin Check CBC, CMP, ESR now/STAT 07/27/2016 Appointment: María Elena Appiah WPtel: [address] [place], [place] [id number] ACUTE ILLNESS 07/27/2016 Patient Education: Patient Medication Summary Completed 07/27/2016 Visit Plan: Update lab and check ABIs to start with Will likely need cardiology evaluation to rule out PVD Clindamycin for 10 days Daily yogurt or probiotic Will return for removal of left arm lesions 07/20/2016 Appointment: María Elena Appiah WPtel: [address] [place] [address] ACUTE ILLNESS 07/20/2016 Patient Education: Patient Medication Summary Completed 07/20/2016 Patient Education: Patient Medication Summary Completed 07/20/2016 Care Plan: MAMMOGRAM BOTH BREASTS LOINC : 65430-5 Pending 07/20/2016 Care Plan: US EXAM CHEST LOINC : 33182-1 Pending 07/20/2016 Visit Plan: Wound culture collected from left great toe Appearance is somewhat staph like Rx as above Wound cleanser and skin care reviewed May need to add oral antibiotic if sores do not heal or continue to reoccur 07/06/2016 Appointment: Loan Sánchez [address] [place], [place] [id number] ACUTE ILLNESS 07/06/2016 Patient Education: Patient Medication Summary Completed 07/06/2016 Appointment: María Elena Appiah WPtel: [address] [place], [place] [phone] [place] INJECTION 05/25/2016 Patient Education: Patient Medication Summary Completed 05/25/2016 Visit Plan: Saline nasal flushes prn. Ty lenol/Motrin prn headache. Notify if persists/symptoms worsening. Dexamethasone and Rocephin given 04/26/2016 Appointment: María Elena Appiah WPtel: [address] [place] [address] ACUTE ILLNESS 04/26/2016 Patient Education: Patient Medication Summary Completed 04/26/2016 Visit Plan: Check CBC, CMP, TSH, FreeT4, HbA1C, estradiol, lipids in AM 03/02/2016 Appointment: María Elena Appiah WPtel: [address] [place] [address] 03/01 lm~sl ACUTE ILLNESS 03/02/2016 Patient Education: Patient Medication Summary Completed 03/02/2016 Visit Plan: Exam is nearly normal Needs to be taking daily antihistamine Would prefer to use oral steroids instead of shot but patient insist that oral steroids cause horrible headaches for her Will given kenalog IM instead 02/09/2016 Appointment: Loan Sánchez [address] [place] [address] ACUTE ILLNESS 02/09/2016 Patient Education: Patient Medication Summary Completed 02/09/2016 Visit Plan: Culture urine Macrobid DC xa nax Trial of Ativan 1mg q HS 01/24/2016 Appointment: María Elena Appiah WPtel: [address] [place] [address] ACUTE ILLNESS 01/24/2016 Patient Education: Patient Medication Summary Completed 01/24/2016 Visit Plan: No steroid or rocephin injec tion warranted Can have oral prednisone Continue current home regimen Needs to follow up with Dr Sanchez if problems persist 12/23/2015 Appointment: Loan Sánchez [address] [place] [address] ACUTE ILLNESS 12/23/2015 Patient Education: Patient Medication Summary Completed 12/23/2015 Visit Plan: Saline nasal flushes prn. Ty lenol/Motrin prn headache. Notify if persists/symptoms worsening. Kenalog 40mg IM today 12/08/2015 Appointment: María Elena Appiah WPtel: [address] [place], [place] [phone] 12/06 confirmed~ ACUTE ILLNESS 12/08/2015 Patient Education: Patient Medication Summary Completed 12/08/2015 Appointment: María Elena Appiah WPtel: [address] [place] [address] ACUTE ILLNESS 11/18/2015 Patient Education: Patient Medication Summary Completed 10/11/2015 Appointment: María Elena Appiah WPtel: [address] [place], [place] [phone] [place] INJECTION 10/07/2015 Patient Education: Patient Medication Summary Completed 10/07/2015 Visit Plan: Check renal arterial doppler s and ECHO Change amlodopine to lotrel 5/20mg q HS Will need stress test as well Check CMP, uric acid, ESR 10/06/2015 Appointment: María Elena Appiah WPtel: [address] [place] [address] ACUTE ILLNESS 10/06/2015 Patient Education: Patient Medication Summary Completed 10/06/2015 Patient Education: [facility] [place] [employer] [employer] - Amlodipine Besylate - 18-64 - Dynamic Portal ID Completed 10/06/2015 Appointment: María Elena Appiah WPtel: [address] [place] [address] FOLLOW UP 09/22/2015 Visit Plan: Cephalexin 500 mg PO bid Mery ly topical Mupirocin to lesions on left lateral neck and face Follow-up in one week. Sooner if symptoms worsen 09/14/2015 Appointment: June Flores WPtel: [address] [place] [address] ACUTE ILLNESS 09/14/2015 Patient Education: Patient Medication Summary Completed 09/14/2015 Visit Plan: Change bystolic to bedtime d osing and amlodopine to morning dosing Cryotherapy as above to AKs 09/07/2015 Appointment: María Elena Appiah WPtel: [address] [place], [place] [phone] 09/06 appointment made and confirmed ~sl FOLLOW UP 09/07/2015 Patient Education: Patient Medication Summary Completed 09/07/2015 Visit Plan: Increase bystolic back to 20 mg daily but will split and take 10mg in AM and 10mg in PM Stress Reducers 08/18/2015 Appointment: María Elena Appiah WPtel: [address] [place], [place] [phone] 08/17/15 appt confirmed cn ACUTE ILLNESS 08/18 Patient Education: Patient Medication Summary Completed 08/18/2015 Appointment: María Elena Appiah WPtel: [address] [place] [address] BP CHECK 07/07/2015 Patient Education: Patient Medication Summary Completed 07/07/2015 Appointment: María Elena Appiah WPtel: [address] [place] [address] BP CHECK 06/24/2015 Patient Education: Patient Medication Summary Completed 06/24/2015 Appointment: María Elena Appiah WPtel: [address] [place] [address] BP CHECK 06/21/2015 Patient Education: Patient Medication Summary Completed 06/21/2015 Visit Plan: Lab discussed Continue curre nt meds and lifestyle modification Recheck lab in 6mos 06/16/2015 Appointment: María Elena Appiah WPtel: [address] [place], [place] [id number] 06/15 confirmed FOLLOW UP 06/16/2015 Patient Education: Patient Medication Summary Completed 06/16/2015 Patient Education: Patient Medication Summary Completed 06/15/2015 Visit Plan: Increase cymbalta to 60mg q HS Keep clonidine at current dose Recheck 2weeks Change xanax to klonopin 06/02/2015 Appointment: María Elena Appiah WPtel: [address] [place], [place] [phone] 06/02 lm FOLLOW UP 06/02/2015 Patient Education: Patient Medication Summary Completed 06/02/2015 Appointment: María Elena Appiah WPtel: [address] [place] [address] ACUTE ILLNESS 05/24/2015 Visit Plan: Increase clonidine to 0.2mg q HS Add cymbalta 30mg q HS Recheck 2weeks Stress Reducers Check fasting lab Discussed sleep study 05/20/2015 Appointment: María Elena Appiah WPtel: [address] [place] [address] ACUTE ILLNESS 05/20/2015 Patient Education: Patient Medication Summary Completed 05/20/2015 Patient Education: [facility] [place] [facility] [employer] - Cymbalta - 18-64 - Dynamic Portal ID Completed 05/20/2015 Appointment: María Elena Appiah WPtel: [address] [place] [address] BP CHECK 05/19/2015 Patient Education: Patient Medication Summary Completed 05/19/2015 Visit Plan: Topical Bactroban alternatin g with topical betamethasone Recheck 2weeks 05/10/2015 Appointment: María Elena Appiah WPtel: [address] [place] [address] 05/07 cn...05/07 appt confirmed OFFICE SURGER Y 05/10/2015 Patient Education: Patient Medication Summary Completed 05/10/2015 Referral: Patrick Chandler WPtel: [address] [place] [address] Referral Initiated 05/04/2015 Visit Plan: Saline nasal flushes prn. Ty lenol/Motrin prn headache. Notify if persists/symptoms worsening. Depomedrol 40mg IM today 03/16/2015 Appointment: María Elena Appiah WPtel: [address] [place] [address] ACUTE ILLNESS 03/16/2015 Patient Education: Patient Medication Summary Completed 03/16/2015 Appointment: María Elena Appiah WPtel: [address] [place] [address] ER Follow UP 03/09/2015 Visit Plan: Cryotherapy to lesions as ab ove 10/27/2014 Appointment: María Elena Appiah WPtel: [address] [place] [address] OFFICE SURGERY 10/27/2014 Patient Education: Patient Medication Summary Completed 10/27/2014 Appointment: June Flores WPtel: [address] [place] [address] ACUTE ILLNESS 09/11/2014 Patient Education: Patient Medication Summary Completed 09/11/2014 Visit Plan: Lab discussed Lipitor 10mg d aily Coenzyme Q-10 400mg daily Vitamin D3 5000u daily Recheck lipids with LFTs in 3mos then fwup 08/31/2014 Appointment: María Elena Appiah WPtel: [address] [place] [address] 08/28 voicemail FOLLOW UP 08/31/2014 Patient Education: Patient Medication Summary Completed 08/31/2014 Appointment: María Elena Appiah WPtel: [address] [place] [address] US LAB 08/27/2014 Appointment: María Elena Appiah WPtel: [address] [place] [address] US LAB 08/27/2014 Patient Education: Patient Medication Summary Completed 08/27/2014 Appointment: María Elena Appiah WPtel: [address] [place] [address] ACUTE ILLNESS 07/23/2014 Appointment: María Elena Appiah WPtel: [address] [place] [address] ACUTE ILLNESS 07/21/2014 Patient Education: Patient Medication Summary Completed 07/21/2014 Visit Plan: Kenalog 40mg IM today Contin ue narendra and singulair Add Flonase 07/15/2014 Appointment: María Elena Appiah WPtel: [address] [place], [place] [phone] ACUTE ILLNESS 07/15/2014 Appointment: María Elena Appiah WPtel: [address] [place], [place] [id number] ACUTE ILLNESS 07/15/2014 Patient Education: Patient Medication Summary Completed 07/15/2014 Visit Plan: Will do metolazone 2.5mg prn with 6 potassium and see if causes as severe cramping Trial of of seroquel XR 50mg q PM with evening meal and let us know how works 05/18/2014 Appointment: María Elena Appiah WPtel: [address] [place], [place] [phone] 05/15 left message FOLLOW UP 05/18/2014 Patient Education: Patient Medication Summary Completed 05/18/2014 Appointment: María Elena Appiah WPtel: [address] [place], [place] [phone] LAB 05/14/2014 Patient Education: Patient Medication Summary Completed 05/14/2014 Appointment: María Elena Appiah WPtel: [address] [place], [place] [phone] [place] INJECTION 04/22/2014 Visit Plan: Nimco today a nd finish abx given from urgent care 04/21/2014 Appointment: María Elena Appiah WPtel: [address] [place], [place] [phone] [place] INJECTION 04/21/2014 Patient Education: Patient Medication Summary Completed 04/21/2014 Appointment: June Flores WPtel: [address] [place], [place] [phone] ACUTE ILLNESS 03/04/2014 Patient Education: Patient Medication Summary Completed 03/04/2014 Appointment: María Elena Appiah WPtel: [address] [place], [place] [phone] [place] INJECTION 02/27/2014 Patient Education: Patient Medication Summary Completed 02/27/2014 Visit Plan: Cryotherapy as above to all lesions Patient wants to try no meds for insomnia for a while and see how goes 01/13/2014 Appointment: María Elena Appiah WPtel: [address] [place] [address] OFFICE SURGERY 01/13/2014 Patient Education: Patient Medication Summary Completed 01/13/2014 Visit Plan: Stop Melatonin Stop Soma Tri al of trazadone 75mg q HS See ENT for possible tubes as has had chronic ETD and serous otitis media with numerous steroids 12/24/2013 Appointment: María Elena Appiah WPtel: [address] [place] [address] ACUTE ILLNESS 12/24/2013 Patient Education: Patient Medication Summary Completed 12/24/2013 Visit Plan: Saline nasal flushes prn. Ty lenol/Motrin prn headache. Notify if persists/symptoms worsening. 11/12/2013 Appointment: María Elena Appiah WPtel: [address] [place] [address] ACUTE ILLNESS 11/12/2013 Patient Education: Patient Medication Summary Completed 11/12/2013 Appointment: María Elena Appiah WPtel: [address] [place] [address] ACUTE ILLNESS 10/21/2013 Patient Education: Patient Medication Summary Completed 10/21/2013 Visit Plan: Sleep hygiene and sleep rout ine Melatonin 10mg q HS Support stockings and observe 09/22/2013 Appointment: María Elena Appiah WPtel: [address] [place] [address] ACUTE ILLNESS 09/22/2013 Patient Education: Patient Medication Summary Completed 09/22/2013 Appointment: June Flores WPtel: [address] [place] [address] ACUTE ILLNESS 08/27/2013 Patient Education: Patient Medication Summary Completed 08/27/2013 Visit Plan: Proceed with CT scan of head /neck Proceed with occipital nerve injections Butrans 20mcg patch weekly until can get into see Dr. Mcdonough for injections 08/04/2013 Appointment: María Elena Appiah WPtel: [address] [place] [address] FOLLOW UP 08/04/2013 Patient Education: Patient Medication Summary Completed 08/04/2013 Visit Plan: OMT done Daily neck stretche s, moist heat Increase Celebrex to 200mg BID Add flexeril 07/23/2013 Appointment: María Elena Appiah WPtel: [address] [place] [address] 07/22 voicemail FOLLOW UP 07/23/2013 Patient Education: Patient Medication Summary Completed 07/23/2013 Appointment: María Elena Appiah WPtel: [address] [place] [address] ACUTE ILLNESS 06/23/2013 Patient Education: Patient Medication Summary Completed 06/23/2013 Appointment: María Elena Appiah WPtel: [address] [place] [address] ACUTE ILLNESS 05/26/2013 Patient Education: Patient Medication Summary Completed 05/26/2013 Visit Plan: Decrease clonidine to 0.1mg TID If BP remains stable consider decreasing amlodopine Prednisone for 5 days BP check in 1mo 04/16/2013 Appointment: María Elena Appiah WPtel: [address] [place] [address] 04/14 pt called and confirmed appt FOLLOW UP 04/16/2013 Patient Education: Patient Medication Summary Completed 04/16/2013 Appointment: María Elena Appiah WPtel: [address] [place] [address] ACUTE ILLNESS 03/05/2013 Patient Education: Patient Medication Summary Completed 03/05/2013 Visit Plan: Pt has MARIA ELENA on with Dr. Mcdonough Continue Butrans patch Refill Hydrocodone early tomorrow 12/23/2012 Appointment: María Elena Appiah WPtel: [address] [place] [address] FOLLOW UP 12/23/2012 Patient Education: Patient Medication Summary Completed 12/23/2012 Appointment: Lashawn Eckert WPtel: [address] [place] [address] ACUTE ILLNESS 12/16/2012 Patient Education: Patient Medication Summary Completed 12/16/2012 Visit Plan: Proceed with updated MRI of LS spine Continue gabapentin and add soma and diclofenac Will likely need to go for another epidural 12/09/2012 Appointment: María Elena Appiah WPtel: [address] [place] [address] ACUTE ILLNESS 12/09/2012 Patient Education: Patient Medication Summary Completed 12/09/2012 Visit Plan: Injection as above Finish me drol dose pack Chiropracter this afternoon 12/04/2012 Appointment: María Elena Appiah WPtel: [address] [place] [address] ACUTE ILLNESS 12/04/2012 Patient Education: Patient Medication Summary Completed 12/04/2012 Appointment: Mary Tillman WPtel: [address] [place], [place] [id number] FOLLOW UP 11/22/2012 Patient Education: Patient Medication Summary Completed 11/22/2012 Appointment: María Elena Appiah WPtel: [address] [place], [place] [id number] ACUTE ILLNESS 11/21/2012 Patient Education: Patient Medication Summary Completed 11/21/2012 Appointment: María Elena Appiah WPtel: [address] [place] [address] BP CHECK 11/07/2012 Patient Education: Patient Medication Summary Completed 11/07/2012 Visit Plan: reports extra clonidine and extra amlodipine and extra alprazalam. extra Ketolorac and promethazine last night. Bystolic 10 mg QAM and will continue all other blood pressure meds. Pt. encouraged to rest and hydrate. Discussed stroke and [place] symptoms. Pt. instructed to seek ER eval if symptoms worsen or headache persists. Pt. agrees to ER eval/EMS transport if symptoms worsen. BP re-check. 10/29/2012 Appointment: Lashawn Eckert WPtel: [address] [place], [place] [phone] ACUTE ILLNESS 10/29/2012 Patient Education: Patient Medication Summary Completed 10/29/2012 Appointment: María Elena Appiah WPtel: [address] [place], [place] [id number] ACUTE ILLNESS 10/14/2012 Patient Education: Patient Medication Summary Completed 10/14/2012 Appointment: María Elena Appiah WPtel: [address] [place], [place] [phone] UA 09/27/2012 Patient Education: Patient Medication Summary Completed 09/27/2012 Appointment: María Elena Appiah WPtel: [address] [place], [place] [id number] ACUTE ILLNESS 09/25/2012 Patient Education: Patient Medication Summary Completed 09/25/2012 Appointment: María Elena Appiah WPtel: [address] [place], [place] [phone] BP CHECK 09/24/2012 Appointment: María Elena Appiah WPtel: [address] [place], [place] [id number] ACUTE ILLNESS 08/29/2012 Patient Education: Patient Medication Summary Completed 08/29/2012 Visit Plan: Cryotherapy as above See Karlos m for right ear lesion--probable MOHs procedure Increase amlodopine to 10mg daily 08/12/2012 Appointment: María Elena Appiah WPtel: [address] [place], [place] [phone] OFFICE SURGERY 08/12/2012 Patient Education: Patient Medication Summary Completed 08/12/2012 Appointment: María Elena Appaih WPtel: [address] [place], [place] [phone] 05/03 vm on pt phone...pt called on 04/11 3 pt called wanting in had no one cancel so could not get her in for an appt sooner than 05/06. ACUTE ILLNESS 05/06/2012 Patient Education: Patient Medication Summary Completed 05/06/2012 Visit Plan: Pt wants to hold on any furt her sleep medications 04/03/2012 Appointment: María Elena Appiahtel: [address] [place] [address] FOLLOW UP 04/03/2012 Patient Education: Patient Medication Summary Completed 04/03/2012 Appointment: María Elena Appiah WPtel: [address] [place] [address] FOLLOW UP 03/19/2012 Patient Education: Patient Medication Summary Completed 03/19/2012 Appointment: María Elena Appiahtel: [address] [place] [address] BP CHECK 02/22/2012 Patient Education: Patient Medication Summary Completed 02/22/2012 Appointment: María Elena Appiahtel: [address] [place] [address] BP CHECK 02/21/2012 Patient Education: Patient Medication Summary Completed 02/21/2012 Visit Plan: Doxycycline and bactroban fo r foot Supportive care on ankles and knees Add norvasc for BP 02/20/2012 Appointment: María Elena Appiahtel: [address] [place] [address] ER Follow UP 02/20/2012 Patient Education: Patient Medication Summary Completed 02/20/2012 Appointment: María Elena Appiah WPtel: [address] [place] [address] ACUTE ILLNESS 01/30/2012 Patient Education: Patient Medication Summary Completed 01/30/2012 Appointment: María Elena Appiahtel: [address] [place] [address] ACUTE ILLNESS 01/24/2012 Patient Education: Patient Medication Summary Completed 01/24/2012 Visit Plan: Daily back stretches, moist heat, Biofreeze prn OMT done 01/10/2012 Appointment: María Elena Appiah WPtel: [address] [place] [address] ACUTE ILLNESS 01/10/2012 Patient Education: Patient Medication Summary Completed 01/10/2012 Appointment: María Elena Appiah WPtel: [address] [place] [address] FOLLOW UP 12/11/2011 Patient Education: Patient Medication Summary Completed 12/11/2011 Appointment: María Elena Appiah WPtel: [address] [place] [address] ACUTE ILLNESS 11/09/2011 Patient Education: Patient Medication Summary Completed 11/09/2011 Appointment: María Elena Appiahtel: [address] [place] [address] ACUTE ILLNESS 09/13/2011 Patient Education: Patient Medication Summary Completed 09/13/2011 Visit Plan: Check CBC, TSH, Free T4, CMP , ESR, Vit D, B12 now Start Prednisone today 08/31/2011 Appointment: María Elena Appiah WPtel: [address] [place] [address] ACUTE ILLNESS 08/31/2011 Patient Education: Patient Medication Summary Completed 08/31/2011 Appointment: María Elena Appiahtel: [address] [place] [address] [place] INJECTION 07/20/2011 Patient Education: Patient Medication Summary Completed 07/20/2011 Visit Plan: Continue current meds Monite r BP Cont stretches from PT 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 07/06/2011 Appointment: María Elena Appiah WPtel: [address] [place] [address] FOLLOW UP 07/06/2011 Patient Education: Patient Medication Summary Completed 07/06/2011 Appointment: María Elena Appiah WPtel: [address] [place] [address] [place] BP CHECK 06/06/2011 Patient Education: Patient Medication Summary Completed 06/06/2011 Visit Plan: Add Bystolic at 2.5mg QAM Ad d Robaxin 750mg 2 po q HS BP check in 2wks 05/22/2011 Appointment: María Elena Appiah WPtel: [address] [place], [place] [phone] FOLLOW UP 05/22/2011 Patient Education: Patient Medication Summary Completed 05/22/2011 Appointment: María Elena Appiah WPtel: [address] [place] [address] ER Follow UP 05/09/2011 Patient Education: Patient Medication Summary Completed 05/09/2011 Appointment: María Elena Appiah WPtel: [address] [place] [address] FOLLOW UP 02/22/2011 Visit Plan: Rx written for Hydrocodone 1 0/325mg #240 See Ortho 02/14/2011 Appointment: María Elena Appiah WPtel: [address] [place] [address] OMT 02/14/2011 Patient Education: Patient Medication Summary [...] lab work. 02/03/2011 Appointment: Lashawn Eckert WPtel: [facility] [place] [phone] ACUTE ILLNESS 02/03/2011 Patient Education: Patient Medication Summary Completed 02/03/2011 Visit Plan: OMT done Cont daily stretche s 01/31/2011 Appointment: María Elena Appiah WPtel: [address] [place] [address] ACUTE ILLNESS 01/31/2011 Patient Education: Patient Medication Summary Completed 01/31/2011 Visit Plan: Continue pain meds OMT done Proceed with PT No work this summer01/25/2011 Appointment: María Elena Appiah WPtel: [address] [place] [address] ACUTE ILLNESS 01/25/2011 Patient Education: Patient Medication Summary Completed 01/25/2011 Visit Plan: Start PT Long discussion abo ut getting pain meds from only us and can only have max of 4grams of tylenol per day Change to Hydrocodone 10/325mg 1- 2 po TID prn pain--#180 called to [facility] 01/18/2011 Appointment: María Elena Appiah WPtel: [address] [place] [address] FOLLOW UP 01/18/2011 Patient Education: Patient Medication Summary Completed 01/18/2011 Visit Plan: Daily back stretches, moist heat, Biofreeze prn 11/29/2010 Appointment: María Elena Appiahtel: [address] [place] [address] ER Follow UP 11/29/2010 Patient Education: Patient Medication Summary Completed 11/29/2010 Visit Plan: Saline nasal flushes prn. Ty lenol/Motrin prn headache. Notify if persists/symptoms worsening. Finish augmentin Add Medrol Dose Pack 10/10/2010 Appointment: María Elena Appiah WPtel: [address] [place] [address] ACUTE ILLNESS 10/10/2010 Patient Education: Patient Medication Summary Completed 10/10/2010 Visit Plan: Cryotherapy x3 to multiple l esions on both forearms 07/19/2010 Appointment: María Elena Appiah WPtel: [address] [place] [address] OFFICE SURGERY 07/19/2010 Patient Education: Patient Medication Summary Completed 07/19/2010 Appointment: María Elena Appiah WPtel: [address] [place] [address] BP CHECK 07/06/2010 Patient Education: Patient Medication Summary Completed 07/06/2010 Appointment: María Elena Appiah WPtel: [address] [place] [address] [place] BP CHECK 06/30/2010 Patient Education: Patient Medication Summary Completed 06/30/2010 Appointment: María Elena Appiah WPtel: [address] [place] [address] BP CHECK 06/20/2010 Patient Education: Patient Medication Summary Completed 06/20/2010 Visit Plan: Change Diovan to Exforge 160 /5mg QD OMT done to thoracics BP check in 2wks 06/07/2010 Appointment: María Elena Appiah WPtel: [address] [place] [address] FOLLOW UP 06/07/2010 Patient Education: Patient Medication Summary Completed 06/07/2010 Appointment: María Elena Appiah WPtel: [address] [place] [address] BP CHECK 06/03/2010 Patient Education: Patient Medication Summary Completed 06/03/2010 Appointment: María Elena Appiah WPtel: [address] [place] [address] BP CHECK 06/01/2010 Patient Education: Patient Medication Summary Completed 06/01/2010 Visit Plan: Irritated skin tags to left neck x2 excised at base with scissors and base cauterized 05/30/2010 Appointment: María Elena Appiah WPtel: [address] [place] [address] OFFICE SURGERY 05/30/2010 Patient Education: Patient Medication Summary Completed 05/30/2010 Visit Plan: Saline nasal flushes prn. Ty lenol/Motrin prn headache. Notify if persists/symptoms worsening. Restart Nasonex Has allergy testing set for May 25 04/27/2010 Appointment: María Elena Appiahtel: [address] [place] [address] ACUTE ILLNESS 04/27/2010 Patient Education: Patient Medication Summary Completed 04/27/2010 Visit Plan: Saline nasal flushes prn. Ty lenol/Motrin prn headache. Notify if persists/symptoms worsening. Omnaris BID plus injections 04/05/2010 Appointment: María Elena Appiah WPtel: [address] [place] [address] ACUTE ILLNESS 04/05/2010 Patient Education: Patient Medication Summary Completed 04/05/2010 Visit Plan: Saline nasal flushes prn. Ty lenol/Motrin prn headache. Notify if persists/symptoms worsening. 03/09/2010 Appointment: María Elena Appiah WPtel: [address] [place] [address] ACUTE ILLNESS 03/09/2010 Patient Education: Patient Medication Summary Completed 03/09/2010 Visit Plan: Cont Clonidine as is Cont Pr emarin Fwup with surgery as scheduled 03/03/2010 Appointment: María Elena Appiahtel: [address] [place] [address] FOLLOW UP 03/03/2010 Patient Education: Patient Medication Summary Completed 03/03/2010 Visit Plan: Check Pelvic US now Chelsey Sal C vs Hysterectomy 01/17/2010 Appointment: María Elena Appiah WPtel: [address] [place] [address] ACUTE ILLNESS 01/17/2010 Patient Education: Patient Medication Summary Completed 01/17/2010 Visit Plan: Check fasting lab and schedu le Mammogram 2gm Na Diet Trial of Ambien 10mg qhs Fwup pending lab results 12/27/2009 Appointment: María Elena Appiahtel: [address] [place] [address] ESTABLISHED PATIENT 12/27/2009 Patient Education: Patient Medication Summary Completed 12/27/2009 Referral: Canelo Overton WPtel: [phone] [id number] [place] Referral Initiated Referral: Philipp Florse WPtel: [address] [id number] [place] Referral Appointment Requested Instructions Comment . [...] to rest and hydrate. Discussed stroke and [place] symptoms. Pt. instructed to seek ER eval [...] 240 See Ortho . will refer to [facility] for epidural ster oid injection. Pt. wants [...] 1-2 po TID prn pain--#180 called to [facility] . Daily back stretches, moist heat, Biof [...]
--- OUTSIDE RECORDS SUMMARY | 2020-03-13 04:09 | XMS REPORT | CCD ---
Author Author Gale Appiah D.O. Organization [facility] Address [address] [place] [address] Phone Care Team Providers Care Ax Survey Worker Name Role Phone María Elena Appiah D.O., PP Unavailable CCM Unavailable Summary Purpose Interface Exchange Insurance Providers Payer name Policy type / Coverage type Covered alliance party ID Effective Begin Date Effective End Date [facility] Commercial Insurance [id number] Unknown Family History Family History data not found Social History Social History Element Codes Description Effective Dates Tobacco history SNOMED CT: [id number] Never smoker 05/22/2011 Allergies, Adverse Reactions, Alerts [...] Start Date Stop Date Status Fill Instructions cyclobenzaprine 10 mg tablet RxNorm: 863766 TAKE ONE TA BLET BY MOUTH THREE TIMES A DAY NEEDED FOR MUSCLE SPASMS 02/27/2020 No Stop Date Active Premarin 1.25 mg tablet RxNorm: 171071 1 Tablet(s) Oral QD 02/16/20 20 05/15/2020 Active celecoxib 200 mg capsule RxNorm: 885909 1 Capsule(s) Or al two times a day as needed for pain 02/16/2020 05/15/2020 Active Farxiga 10 mg tablet RxNorm: 5825267 1 Tablet(s) Oral QAM 02/13/2020 05/13/2020 Active Farxiga 10 mg tablet RxNorm: 5101611 1 Tablet(s) Oral QAM 02/13/2020 02/12/2020 Inactive Keflex 500 mg capsule RxNorm: 511864 1 Capsule(s) Oral two time s a day 02/12/2020 02/19/2020 Inactive Lipitor 10 mg tablet RxNorm: 320886 TAKE ONE TABLET BY MOUTH DAILY 01/23/2020 No Stop Date Active Januvia 100 mg tablet RxNorm: 886484 TAKE ONE TABLET BY MOUTH DAILY 01/22/2020 No Stop Date Active gabapentin 300 mg capsule RxNorm: 019839 TAKE ONE CAPSU LE BY MOUTH EVERY NIGHT AT BEDTIME 01/22/2020 No Stop Date Active allopurinol 300 mg tablet RxNorm: 843349 TAKE ONE TABLET BY LOPEZ TH DAILY 01/22/2020 No Stop Date Active Klor-Con 8 mEq tablet,extended release RxNorm: 754640 T FARRUKH ONE TABLET BY MOUTH TWICE A DAY 01/22/2020 No Stop Date Active doxepin 25 mg capsule RxNorm: 4334225 TAKE ONE CAPSULE B Y MOUTH EVERY NIGHT AT BEDTIME NEEDED FOR SLEEP 01/22/2020 No Stop Date Active glimepiride 4 mg tablet RxNorm: 695015 1 Tablet(s) Oral two times a day replaces 2mg dose 01/13/2020 04/12/2020 Active lisinopril 40 mg tablet RxNorm: 504542 1 Tablet(s) Oral QD repl aces 20mg dose 01/13/2020 04/12/2020 Active hydrocodone 10 mg-acetaminophen 325 mg tablet RxNorm: 059413 1-2 Tablet(s) Oral three times a day as needed for pain 01/12/2020 No Stop Date Active cyclobenzaprine 10 mg tablet RxNorm: 977312 TAKE ONE TA BLET BY MOUTH THREE TIMES A DAY NEEDED FOR MUSCLE SPASMS 01/05/2020 02/26/2020 Inactive triamterene 75 mg-hydrochlorothiazide 50 mg tablet RxNorm: 3 46600 TAKE ONE TABLET BY MOUTH DAILY 12/29/2019 No Stop Date Active Klor-Con 8 mEq tablet,extended release RxNorm: 063230 T FARRUKH ONE TABLET BY MOUTH TWICE A DAY 12/19/2019 01/21/2020 Inactive allopurinol 300 mg tablet RxNorm: 155327 TAKE ONE TABLET BY LOPEZ DAILY 12/19/2019 01/21/2020 Inactive glimepiride 2 mg tablet RxNorm: 904645 TAKE ONE TABLET BY MOUTH TWICE A DAY 12/19/2019 01/12/2020 Inactive hydrocodone 10 mg-acetaminophen 325 mg tablet RxNorm: 020013 1-2 Tablet(s) Oral three times a day as needed for pain 12/10/2019 01/11/2020 Inactive Januvia 100 mg tablet RxNorm: 445821 1 Tablet(s) Oral QD 11/20/2019 0 11/20/2019 Inactive glimepiride 2 mg tablet RxNorm: 436608 1 Tablet(s) Oral two sawyer es a day 11/20/2019 12/18/2019 Inactive cyclobenzaprine 10 mg tablet RxNorm: 462431 TAKE ONE TA BLET BY MOUTH THREE TIMES A DAY NEEDED FOR MUSCLE SPASMS 11/17/2019 01/04/2020 Inactive doxepin 25 mg capsule RxNorm: 6021608 TAKE ONE CAPSULE B Y MOUTH EVERY NIGHT AT BEDTIME NEEDED FOR SLEEP 11/16/2019 01/21/2020 Inactive Klor-Con 8 mEq tablet,extended release RxNorm: 608300 T FARRUKH ONE TABLET BY MOUTH TWICE A DAY 11/16/2019 12/18/2019 Inactive hydrocodone 10 mg-acetaminophen 325 mg tablet RxNorm: 796261 1-2 Tablet(s) Oral three times a day as needed for pain 11/10/2019 12/09/2019 Inactive cyclobenzaprine 10 mg tablet RxNorm: 046155 TAKE ONE TA BLET BY MOUTH THREE TIMES A DAY NEEDED FOR MUSCLE SPASMS 10/23/2019 11/16/2019 Inactive duloxetine 60 mg capsule,delayed release RxNorm: 571700 1 Capsu le(s) Oral QD 10/17/2019 04/13/2020 Active Singulair 10 mg tablet RxNorm: 544212 1 Tablet(s) Oral QD 10/17/2019 04/14/2020 Active metoprolol tartrate 100 mg tablet RxNorm: 885010 1 Tabl et(s) Oral two times a day 10/17/2019 04/13/2020 Active clonidine HCl 0.1 mg tablet RxNorm: 624003 1 Tablet(s) Oral fou r times a day 10/17/2019 04/13/2020 Active celecoxib 200 mg capsule RxNorm: 522991 1 Capsule(s) Or al two times a day as needed for pain 10/17/2019 02/15/2020 Inactive lisinopril 20 mg tablet RxNorm: 798955 1 Tablet(s) Oral QD 10/17/19 20 01/12/2020 Inactive gabapentin 300 mg capsule RxNorm: 969338 1 Capsule(s) O ral every night at bedtime 10/17/2019 01/15/2020 Inactive Klor-Con 8 mEq tablet,extended release RxNorm: 213366 1 Tablet(s) Oral two times a day 10/17/2019 11/15/2019 Inactive Januvia 100 mg tablet RxNorm: 252424 1 Tablet(s) Oral QD 10/17/2019 0 01/12/2020 Inactive Lipitor 10 mg tablet RxNorm: 673768 1 Tablet(s) Oral QD 10/17/2019 Inactive Steglatro 15 mg tablet RxNorm: 4248448 1 Tablet(s) Oral QD 10/17/19 20 02/12/2020 Inactive Glyxambi 25 mg-5 mg tablet RxNorm: 4162214 1 Tablet(s) Oral QD 01/202010/16/2019 Inactive Patient will bring in copay discount card as well Glyxambi 25 mg-5 mg tablet RxNorm: 4196841 1 Tablet(s) Oral QD 01/202010/14/2019 Inactive Patient will bring in copay discount card as well Keflex 500 mg capsule RxNorm: 255232 1 Capsule(s) Oral two time s a day 10/07/2019 10/14/2019 Inactive Premarin 1.25 mg tablet RxNorm: 725271 1 Tablet(s) Oral QD 09/30/1902/15/2020 Inactive hydrocodone 10 mg-acetaminophen 325 mg tablet RxNorm: 294027 1-2 Tablet(s) Oral three times a day as needed for pain 09/30/2019 09/30/2019 Inactive baclofen 10 mg tablet RxNorm: 173019 TAKE ONE TABLET BY MOUTH THREE TIMES A DAY NEEDED 09/19/2019 No Stop Date Active gabapentin 300 mg capsule RxNorm: 587341 TAKE ONE CAPSU LE BY MOUTH EVERY NIGHT AT BEDTIME 09/19/2019 10/16/2019 Inactive Klor-Con 8 mEq tablet,extended release RxNorm: 844484 T FARRUKH ONE TABLET BY MOUTH TWICE A DAY 1 Tablet(s) Oral two times a day 09/19/2019 10/16/2019 Renu ctive hydrocodone 10 mg-acetaminophen 325 mg tablet RxNorm: 076699 1-2 Tablet(s) Oral three times a day as needed for pain 09/19/2019 09/29/2019 Inactive duloxetine 60 mg capsule,delayed release RxNorm: 139703 TAKE ONE CAPSULE BY MOUTH DAILY 09/11/2019 10/16/2019 Inactive Lipitor 10 mg tablet RxNorm: 904239 TAKE ONE TABLET BY MOUTH AT BEDTIME 09/11/2019 10/16/2019 Inactive lisinopril 20 mg tablet RxNorm: 751484 TAKE ONE TABLET BY MOUTH DAILY .... THIS REPLACE 10MG TABLETS 09/11/2019 10/16/2019 Inactive triamterene 75 mg-hydrochlorothiazide 50 mg tablet RxNorm: 3 54517 TAKE ONE TABLET BY MOUTH DAILY 09/11/2019 12/28/2019 Inactive allopurinol 300 mg tablet RxNorm: 196179 TAKE ONE TABLET BY LOPEZ TH DAILY 09/11/2019 12/18/2019 Inactive celecoxib 200 mg capsule RxNorm: 629674 TAKE ONE CAPSUL E BY MOUTH TWICE A DAY NEEDED FOR PAIN 09/11/2019 10/16/2019 Inactive clonidine HCl 0.1 mg tablet RxNorm: 985968 TAKE ONE TAB LET BY MOUTH FOUR TIMES A DAY 09/11/2019 10/16/2019 Inactive doxepin 25 mg capsule RxNorm: 4880577 1 Capsule(s) Oral every night at bedtime as needed for sleep 08/21/2019 11/15/2019 Inactive hydrocodone 10 mg-acetaminophen 325 mg tablet RxNorm: 781878 1-2 Tablet(s) PO TID 08/12/2019 09/29/2019 Inactive as needed for pa in - Previous quantity #240, will start dosing for #180 in April 2011 per Doctor Td. Medrol (Dustin) 4 mg tablets in a dose pack RxNorm: 196640 Tablet(s) Oral As Directed 07/21/2019 09/29/2019 Inactive Premarin 1.25 mg tablet RxNorm: 525481 1 Tablet(s) Oral QD 07/02/2009/29/2019 Inactive hydrocodone 10 mg-acetaminophen 325 mg tablet RxNorm: 707319 1-2 Tablet(s) PO TID 07/01/2019 08/11/2019 Inactive as needed for pa in - Previous quantity #240, will start dosing for #180 in April 2011 per Doctor Td. gabapentin 300 mg capsule RxNorm: 578912 1 Capsule(s) PO QHS 201809/18/2019 Inactive celecoxib 200 mg capsule RxNorm: 926626 1 Capsule(s) Or al two times a day as needed for pain 06/27/2019 06/27/2019 Inactive doxepin 25 mg capsule RxNorm: 1368927 TAKE ONE CAPSULE B Y MOUTH EVERY NIGHT AT BEDTIME NEEDED FOR SLEEP 06/24/2019 08/20/2019 Inactive Singulair 10 mg tablet RxNorm: 383986 TAKE ONE TABLET BY MOUTH JOSÉ Y 06/24/2019 10/16/2019 Inactive furosemide 40 mg tablet RxNorm: 729825 TAKE ONE TABLET BY MOUTH EVERY MORNING NEEDED FOR EDEMA . TAKE WITH POTASSIUM 06/24/2019 01/12/2020 Inactive lisinopril 20 mg tablet RxNorm: 322918 TAKE ONE TABLET BY MOUTH DAILY .... THIS REPLACE 10MG TABLETS 06/24/2019 09/10/2019 Inactive nystatin-triamcinolone 100,000 unit/g-0.1 % topical cream Rx Norm: 9594405 1 Application Topical two times a day 06/12/2019 06/19/2019 Inactive apply BID for 1 week nystatin-triamcinolone 100,000 unit/g-0.1 % topical cream Rx Norm: 0806810 1 Application Topical two times a day 06/12/2019 06/11/2019 Inactive apply BID for 1 week hydrocodone 10 mg-acetaminophen 325 mg tablet RxNorm: 050752 1-2 Tablet(s) PO QID as needed for pain MUST LAST 30 DAYS 05/28/2019 06/26/2019 Inactiv e (Response to an electronic controlled substance refill request - RxReferenceNumber: [id number]) baclofen 20 mg tablet RxNorm: 198038 1 Tablet(s) PO TID as needed for muscle spasm 05/19/2019 05/27/2019 Inactive gabapentin 300 mg capsule RxNorm: 631965 1 Capsule(s) PO QHS 201805/27/2019 Inactive lisinopril 20 mg tablet RxNorm: 757569 1 Tablet(s) PO Q D TAKE ONE TABLET BY MOUTH DAILY, REPLACES 10 MG DOSE 05/19/2019 06/23/2019 Inactive doxepin 25 mg capsule RxNorm: 1415475 TAKE ONE CAPSULE B Y MOUTH EVERY NIGHT AT BEDTIME NEEDED FOR SLEEP 05/16/2019 06/14/2019 Inactive lisinopril 20 mg tablet RxNorm: 937206 TAKE ONE TABLET BY MOUTH DAILY, REPLACES 10 MG DOSE 05/16/2019 05/18/2019 Inactive Singulair 10 mg tablet RxNorm: 509163 TAKE ONE TABLET BY MOUTH JOSÉ Y 05/16/2019 06/14/2019 Inactive gabapentin 300 mg capsule RxNorm: 380790 1 Capsule(s) PO QHS 201805/04/2019 Inactive estropipate 1.5 mg tablet RxNorm: 137266 1 Tablet(s) PO QD 05/05/2005/27/2019 Inactive estropipate 1.5 mg tablet RxNorm: 115427 1 Tablet(s) PO QD 05/05/20 19 05/04/2019 Inactive gabapentin 300 mg capsule RxNorm: 416203 1 Capsule(s) PO QHS 201805/18/2019 Inactive hydrocodone 10 mg-acetaminophen 325 mg tablet RxNorm: 918827 1-2 Tablet(s) PO QID as needed for pain MUST LAST 30 DAYS 04/25/2019 05/24/2019 Inactiv e (Response to an electronic controlled substance refill request - RxReferenceNumber: [id number]) cyclobenzaprine 10 mg tablet RxNorm: 379275 TAKE ONE TA BLET BY MOUTH THREE TIMES A DAY NEEDED FOR MUSCLE SPASMS 04/24/2019 05/18/2019 Inactive metoprolol tartrate 100 mg tablet RxNorm: 921023 TAKE O NE TABLET BY MOUTH TWICE A DAY 04/24/2019 10/16/2019 Inactive Lyrica 75 mg capsule RxNorm: 159109 1 Capsule(s) PO QHS 03/25/2019 Inactive duloxetine 60 mg capsule,delayed release RxNorm: 260574 TAKE ONE CAPSULE BY MOUTH DAILY 03/21/2019 05/19/2019 Inactive triamterene 75 mg-hydrochlorothiazide 50 mg tablet RxNorm: 3 04020 TAKE ONE TABLET BY MOUTH DAILY 03/21/2019 05/19/2019 Inactive Klor-Con 8 mEq tablet,extended release RxNorm: 537632 T FARRUKH ONE TABLET BY MOUTH TWICE A DAY 03/21/2019 09/18/2019 Inactive Lipitor 10 mg tablet RxNorm: 818554 TAKE ONE TABLET BY MOUTH AT BEDTIME 03/21/2019 09/10/2019 Inactive clonidine HCl 0.1 mg tablet RxNorm: 472429 TAKE ONE TAB LET BY MOUTH FOUR TIMES A DAY 03/21/2019 05/19/2019 Inactive allopurinol 300 mg tablet RxNorm: 031787 TAKE ONE TABLET BY LOPEZ TH DAILY 03/21/2019 05/19/2019 Inactive hydrocodone 10 mg-acetaminophen 325 mg tablet RxNorm: 808006 1-2 Tablet(s) PO QID as needed for pain MUST LAST 30 DAYS 02/28/2019 03/29/2019 Inactiv e (Response to an electronic controlled substance refill request - RxReferenceNumber: [id number]) furosemide 40 mg tablet RxNorm: 238856 TAKE ONE TABLET BY MOUTH EVERY MORNING NEEDED FOR EDEMA . TAKE WITH POTASSIUM 02/21/2019 03/22/2019 Inactive cyclobenzaprine 10 mg tablet RxNorm: 560963 TAKE ONE TA BLET BY MOUTH THREE TIMES A DAY NEEDED FOR MUSCLE SPASMS 02/21/2019 04/21/2019 Inactive lisinopril 20 mg tablet RxNorm: 963736 TAKE ONE TABLET BY MOUTH DAILY, REPLACES 10 MG DOSE 02/21/2019 05/15/2019 Inactive doxepin 25 mg capsule RxNorm: 9656117 TAKE ONE CAPSULE B Y MOUTH EVERY NIGHT AT BEDTIME NEEDED FOR SLEEP 02/21/2019 05/15/2019 Inactive nystatin 100,000 unit/gram topical cream RxNorm: 732089 APPLY TO AFFECTED AREA(S) TWO TIMES A DAY 02/21/2019 03/22/2019 Inactive estradiol 1 mg tablet RxNorm: 726339 2 Tablet(s) PO QD replaces premarin 01/22/2019 05/04/2019 Inactive lisinopril 20 mg tablet RxNorm: 652825 TAKE ONE TABLET BY MOUTH DAILY, REPLACES 10 MG DOSE 01/20/2019 02/18/2019 Inactive cyclobenzaprine 10 mg tablet RxNorm: 392785 TAKE ONE TA BLET BY MOUTH THREE TIMES A DAY NEEDED FOR MUSCLE SPASMS 01/20/2019 02/18/2019 Inactive metoprolol tartrate 100 mg tablet RxNorm: 050167 TAKE O NE TABLET BY MOUTH TWICE A DAY 01/20/2019 02/18/2019 Inactive cyclobenzaprine 10 mg tablet RxNorm: 727810 TAKE ONE TA BLET BY MOUTH THREE TIMES A DAY NEEDED FOR MUSCLE SPASMS 12/19/2018 01/17/2019 Inactive lisinopril 20 mg tablet RxNorm: 516116 TAKE ONE TABLET BY MOUTH DAILY, REPLACES 10 MG DOSE 12/19/2018 01/17/2019 Inactive duloxetine 60 mg capsule,delayed release RxNorm: 795897 TAKE ONE CAPSULE BY MOUTH DAILY 12/19/2018 01/17/2019 Inactive Lipitor 10 mg tablet RxNorm: 399978 TAKE ONE TABLET BY MOUTH AT BEDTIME 12/19/2018 01/17/2019 Inactive cyclobenzaprine 10 mg tablet RxNorm: 685230 1 Tablet(s) PO TID as needed for muscle spasm 11/19/2018 12/18/2018 Inactive Singulair 10 mg tablet RxNorm: 979296 1 Tablet(s) PO QD 11/19/2018 Inactive lisinopril 20 mg tablet RxNorm: 351529 TAKE ONE TABLET BY MOUTH DAILY, REPLACES 10 MG DOSE 11/15/2018 12/18/2018 Inactive hydrocodone 10 mg-acetaminophen 325 mg tablet RxNorm: 816765 1-2 Tablet(s) PO QID as needed for pain MUST LAST 30 DAYS 11/13/2018 12/12/2018 Inactiv e (Response to an electronic controlled substance refill request - RxReferenceNumber: [id number]) nystatin 100,000 unit/gram topical cream RxNorm: 266127 APPLY TO AFFECTED AREA(S) TWO TIMES A DAY 10/23/2018 11/06/2018 Inactive lisinopril 20 mg tablet RxNorm: 361510 1 Tablet(s) PO QD replac es 10mg dose 10/18/2018 11/14/2018 Inactive hydrocodone 10 mg-acetaminophen 325 mg tablet RxNorm: 040269 1-2 Tablet(s) QID as needed for pain MUST LAST 30 DAYS 10/08/2018 11/06/2018 Inactive (Response to an electronic controlled substance refill request - RxReferenceNumber: [id number]) lisinopril 10 mg tablet RxNorm: 179447 1 Tablet(s) PO QD 10/03/2018 0 01/21/2019 Inactive Celebrex 200 mg capsule RxNorm: 971042 TAKE ONE CAPSULE BY MOUT H TWICE A DAY 09/30/2018 05/04/2019 Inactive cyclobenzaprine 10 mg tablet RxNorm: 763888 TAKE ONE TA BLET BY MOUTH THREE TIMES A DAY NEEDED FOR MUSCLE SPASMS 09/30/2018 11/18/2018 Inactive doxepin 25 mg capsule RxNorm: 6081289 TAKE ONE CAPSULE B Y MOUTH EVERY NIGHT AT BEDTIME NEEDED 09/05/2018 10/16/2018 Inactive omeprazole 40 mg capsule,delayed release RxNorm: 174671 TAKE ONE CAPSULE BY MOUTH DAILY 09/05/2018 01/21/2019 Inactive furosemide 40 mg tablet RxNorm: 003339 TAKE ONE TABLET BY MOUTH EVERY MORNING NEEDED FOR EDEMA . TAKE WITH POTASSIUM 09/05/2018 11/03/2018 Inactive phentermine 37.5 mg tablet RxNorm: 528004 1 Tablet(s) PO QAM 201701/21/2019 Inactive doxepin 25 mg capsule RxNorm: 4069376 1 Capsule(s) PO QH S as needed for sleep TAKE ONE CAPSULE BY MOUTH EVERY NIGHT AT BEDTIME NEEDED 08/27/2018 09/04/2018 Inactive Keflex 500 mg capsule RxNorm: 143704 1 Capsule(s) PO TID 08/09/2018 1 10/19/2017 Inactive Diflucan 100 mg tablet RxNorm: 682437 1 Tablet(s) PO QD 08/09/2018 Inactive Premarin 1.25 mg tablet RxNorm: 813892 2 Tablet(s) PO QD 08/09/2018 0 05/04/2019 Inactive Zofran ODT 4 mg disintegrating tablet RxNorm: 161281 1 Tablet(s) PO Q4H as needed for nausea 08/09/2018 01/21/2019 Inactive metoprolol tartrate 100 mg tablet RxNorm: 083177 TAKE O NE TABLET BY MOUTH TWICE A DAY 2018 10/04/2018 Inactive doxepin 25 mg capsule RxNorm: 5284182 TAKE ONE CAPSULE B Y MOUTH EVERY NIGHT AT BEDTIME NEEDED 2018 08/26/2018 Inactive cyclobenzaprine 10 mg tablet RxNorm: 669322 TAKE ONE TA BLET BY MOUTH THREE TIMES A DAY NEEDED FOR MUSCLE SPASMS 2018 09/29/2018 Inactive hydrocodone 10 mg-acetaminophen 325 mg tablet RxNorm: 690967 1-2 Tablet(s) QID as needed for pain MUST LAST 30 DAYS 07/29/2018 08/27/2018 Inactive (Response to an electronic controlled substance refill request - RxReferenceNumber: [id number]) nystatin 100,000 unit/gram topical powder RxNorm: 021787 Applic ation TOP BID 07/22/2018 08/04/2018 Inactive doxepin 25 mg capsule RxNorm: 9354140 1 Capsule(s) PO QHS as needed 07/22/2018 08/05/2018 Inactive triamterene 75 mg-hydrochlorothiazide 50 mg tablet RxNorm: 3 60662 TAKE ONE TABLET BY MOUTH DAILY 07/05/2018 10/02/2018 Inactive duloxetine 60 mg capsule,delayed release RxNorm: 967108 TAKE ONE CAPSULE BY MOUTH DAILY 07/05/2018 09/02/2018 Inactive Klor-Con 8 mEq tablet,extended release RxNorm: 007655 T FARRUKH ONE TABLET BY MOUTH TWICE A DAY 07/05/2018 10/02/2018 Inactive Lipitor 10 mg tablet RxNorm: 372118 TAKE ONE TABLET BY MOUTH AT BEDTIME 07/05/2018 09/02/2018 Inactive allopurinol 300 mg tablet RxNorm: 643089 TAKE ONE TABLET BY LOPEZ TH DAILY 07/05/2018 10/02/2018 Inactive clonidine HCl 0.1 mg tablet RxNorm: 726858 TAKE ONE TAB LET BY MOUTH FOUR TIMES A DAY 07/05/2018 10/02/2018 Inactive hydrocodone 10 mg-acetaminophen 325 mg tablet RxNorm: 294600 1-2 Tablet(s) QID as needed for pain MUST LAST 30 DAYS 06/28/2018 07/27/2018 Inactive (Response to an electronic controlled substance refill request - RxReferenceNumber: [id number]) MediHoney (calcium alginate-honey) 4" X 5" bandage RxNorm: 1 Application TOP QD 06/17/2018 06/26/2018 Inactive honey-hydrocolloid dressing 4" X 5" RxNorm: 1 Application TOP QD 06/17/2018 07/16/2018 Inactive furosemide 40 mg tablet RxNorm: 623941 TAKE ONE TABLET BY MOUTH EVERY MORNING NEEDED FOR EDEMA . TAKE WITH POTASSIUM 06/10/2018 07/09/2018 Inactive This is a refill request. hydrocodone 10 mg-acetaminophen 325 mg tablet RxNorm: 865284 1-2 Tablet(s) QID as needed for pain MUST LAST 30 DAYS 05/30/2018 06/27/2018 Inactive (Response to an electronic controlled substance refill request - RxReferenceNumber: [id number]) acyclovir 800 mg tablet RxNorm: 147101 1 Tablet(s) PO 5x day 201705/22/2018 Inactive Premarin 1.25 mg tablet RxNorm: 463848 1-2 Tablet(s) PO QD 05/15/20 18 07/13/2018 Inactive cyclobenzaprine 10 mg tablet RxNorm: 722777 1 Tablet(s) PO TID as needed for muscle spasm 05/09/2018 05/08/2018 Inactive Medrol (Dustin) 4 mg tablets in a dose pack RxNorm: 104454 Tablet(s) PO As Directed 05/02/2018 06/16/2018 Inactive hydrocodone 10 mg-acetaminophen 325 mg tablet RxNorm: 475548 1-2 Tablet(s) QID as needed for pain MUST LAST 30 DAYS 04/30/2018 05/29/2018 Inactive (Response to an electronic controlled substance refill request - RxReferenceNumber: [id number]) duloxetine 60 mg capsule,delayed release RxNorm: 533019 TAKE ONE CAPSULE BY MOUTH DAILY 04/16/2018 05/15/2018 Inactive Celebrex 200 mg capsule RxNorm: 797542 TAKE ONE CAPSULE BY MOUT H TWICE A DAY 04/16/2018 06/14/2018 Inactive Singulair 10 mg tablet RxNorm: 353059 TAKE ONE TABLET BY MOUTH JOSÉ Y 04/16/2018 11/19/2018 Inactive Lipitor 10 mg tablet RxNorm: 916214 TAKE ONE TABLET BY MOUTH AT BEDTIME 04/16/2018 05/15/2018 Inactive hydrocodone 10 mg-acetaminophen 325 mg tablet RxNorm: 130091 1-2 Tablet(s) QID as needed for pain MUST LAST 30 DAYS 03/29/2018 04/27/2018 Inactive (Response to an electronic controlled substance refill request - RxReferenceNumber: [id number]) cyclobenzaprine 10 mg tablet RxNorm: 249241 1 Tablet(s) PO TID as needed for muscle spasm 03/18/2018 05/09/2018 Inactive omeprazole 40 mg capsule,delayed release RxNorm: 595218 1 Capsu le(s) PO QD 02/26/2018 08/24/2018 Inactive hydrocodone 10 mg-acetaminophen 325 mg tablet RxNorm: 410914 1-2 Tablet(s) QID as needed for pain MUST LAST 30 DAYS 02/26/2018 03/27/2018 Inactive (Response to an electronic controlled substance refill request - RxReferenceNumber: [id number]) metoprolol tartrate 100 mg tablet RxNorm: 450837 1 Tablet(s) PO BID 02/18/2018 08/05/2018 Inactive Lyrica 75 mg capsule RxNorm: 033961 1 Capsule(s) PO QHS 01/30/2018 Inactive phentermine 37.5 mg tablet RxNorm: 627801 1 Tablet(s) PO QAM 201706/16/2018 Inactive hydrocodone 10 mg-acetaminophen 325 mg tablet RxNorm: 630004 1-2 Tablet(s) QID as needed for pain MUST LAST 30 DAYS 01/29/2018 02/25/2018 Inactive (Response to an electronic controlled substance refill request - RxReferenceNumber: [id number]) Klor-Con 8 mEq tablet,extended release RxNorm: 544992 1 Tablet( s) PO BID 01/14/2018 07/04/2018 Inactive allopurinol 300 mg tablet RxNorm: 893413 1 Tablet(s) PO QD 01/15/20 18 07/04/2018 Inactive Lipitor 10 mg tablet RxNorm: 029223 1 Tablet(s) PO QHS 01/14/201812/2017 Inactive triamterene 75 mg-hydrochlorothiazide 50 mg tablet RxNorm: 3 50546 1 Tablet(s) PO QD 01/14/2018 07/04/2018 Inactive hydrocodone 10 mg-acetaminophen 325 mg tablet RxNorm: 174161 1-2 Tablet(s) QID as needed for pain MUST LAST 30 DAYS 12/27/2017 01/25/2018 Inactive (Response to an electronic controlled substance refill request - RxReferenceNumber: [id number]) Onglyza 5 mg tablet RxNorm: 319160 1 Tablet(s) PO QD 12/18/201701/29 Inactive metformin 500 mg tablet RxNorm: 640413 1 Tablet(s) PO BID 12/11/2017 12/10/2017 Inactive metformin 500 mg tablet RxNorm: 429820 1 Tablet(s) PO BID 12/11/2017 12/17/2017 Inactive furosemide 40 mg tablet RxNorm: 474013 1 Tablet(s) PO Q AM prn edema--take with potassium 12/11/2017 06/08/2018 Inactive cyclobenzaprine 10 mg tablet RxNorm: 736261 1 Tablet(s) PO TID as needed for muscle spasm 12/11/2017 03/18/2018 Inactive hydrocodone 10 mg-acetaminophen 325 mg tablet RxNorm: 738974 1-2 Tablet(s) QID as needed for pain MUST LAST 30 DAYS 10/23/2017 11/21/2017 Inactive (Response to an electronic controlled substance refill request [id number]) Lipitor 10 mg tablet RxNorm: 443171 1 Tablet(s) PO QHS 10/16/201703/2018 Inactive cyclobenzaprine 10 mg tablet RxNorm: 346733 1 Tablet(s) PO TID as needed for muscle spasm 10/09/2017 12/10/2017 Inactive hydroxyzine HCl 25 mg tablet RxNorm: 876358 1 Tablet(s) PO BID as needed for anxiety 09/20/2017 01/29/2018 Inactive Effexor XR 75 mg capsule,extended release RxNorm: 231418 1 Caps ule(s) PO QD 09/20/2017 01/29/2018 Inactive metoprolol tartrate 100 mg tablet RxNorm: 912916 1 Tablet(s) PO BID 08/20/2017 02/18/2018 Inactive baclofen 20 mg tablet RxNorm: 169197 1 Tablet(s) PO TID as needed for muscle spasm 08/20/2017 01/21/2019 Inactive clonidine HCl 0.1 mg tablet RxNorm: 631827 1 Tablet(s) PO QID 08/2005/16/2018 Inactive Seroquel 25 mg tablet RxNorm: 436265 1 Tablet(s) PO QHS 08/17/2017 Inactive Seroquel 25 mg tablet RxNorm: 908607 1 Tablet(s) PO QHS 08/17/2017 Inactive Diflucan 100 mg tablet RxNorm: 245471 TAKE ONE TABLET BY MOUTH JOSÉ Y 07/25/2017 08/07/2017 Inactive hydrocodone 10 mg-acetaminophen 325 mg tablet RxNorm: 965391 1-2 Tablet(s) QID as needed for pain MUST LAST 30 DAYS 07/19/2017 08/17/2017 Inactive (Response to an electronic controlled substance refill request - RxReferenceNumber: [id number]) clindamycin 300 mg capsule RxNorm: 879274 1 Capsule(s) PO TID 07/1907/28/2017 Inactive clotrimazole-betamethasone 1 %-0.05 % topical cream RxNorm: 475638 Application TOP BID to elbow rash 07/19/2017 06/16/2018 Inactive Singulair 10 mg tablet RxNorm: 701297 Tablet(s) TAKE ONE TABLET BY MOUTH DAILY 07/18/2017 04/13/2018 Inactive triamterene 75 mg-hydrochlorothiazide 50 mg tablet RxNorm: 3 92240 1 Tablet(s) PO QD 07/18/2017 01/14/2018 Inactive Celebrex 200 mg capsule RxNorm: 918185 Capsule(s) TAKE ONE CAPSULE BY MOUTH TWICE A DAY 07/18/2017 10/15/2017 Inactive hydrocodone 10 mg-acetaminophen 325 mg tablet RxNorm: 467441 1-2 Tablet(s) QID as needed for pain MUST LAST 30 DAYS 06/19/2017 07/18/2017 Inactive (Response to an electronic controlled substance refill request - RxReferenceNumber: [id number]) hydrocodone 10 mg-acetaminophen 325 mg tablet RxNorm: 290113 1-2 Tablet(s) QID as needed for pain MUST LAST 30 DAYS 06/19/2017 06/18/2017 Inactive (Response to an electronic controlled substance refill request - RxReferenceNumber: [id number]) baclofen 20 mg tablet RxNorm: 026261 1 Tablet(s) PO TID as needed for muscle spasm 06/18/2017 08/20/2017 Inactive Medrol (Dustin) 4 mg tablets in a dose pack RxNorm: 874314 Tablet(s) PO As Directed 06/05/2017 07/18/2017 Inactive omeprazole 40 mg capsule,delayed release RxNorm: 365912 1 Capsu le(s) PO QD 04/20/2017 10/16/2017 Inactive Premarin 1.25 mg tablet RxNorm: 471374 1-2 Tablet(s) PO QD 04/11/2005/15/2018 Inactive duloxetine 60 mg capsule,delayed release RxNorm: 718830 1 Capsu le(s) PO QD 04/11/2017 09/19/2017 Inactive furosemide 40 mg tablet RxNorm: 301192 1 Tablet(s) PO Q AM prn edema--take with potassium 04/11/2017 12/11/2017 Inactive Klor-Con 8 mEq tablet,extended release RxNorm: 441551 1 Tablet( s) PO BID 04/11/2017 01/14/2018 Inactive Lipitor 10 mg tablet RxNorm: 500436 1 Tablet(s) PO QHS 04/11/201702/2018 Inactive amlodipine 5 mg-benazepril 20 mg capsule RxNorm: 695840 1 Capsu le(s) PO QD 04/11/2017 01/29/2018 Inactive allopurinol 300 mg tablet RxNorm: 818962 1 Tablet(s) PO QD 04/11/20 17 01/14/2018 Inactive clonidine HCl 0.1 mg tablet RxNorm: 391499 1 Tablet(s) PO QID 04/0508/19/2017 Inactive baclofen 20 mg tablet RxNorm: 671280 1 Tablet(s) PO TID as needed for muscle spasm 04/02/2017 06/18/2017 Inactive Premarin 1.25 mg tablet RxNorm: 941379 1-2 Tablet(s) PO QD 03/20/20 17 04/10/2017 Inactive hydrocodone 10 mg-acetaminophen 325 mg tablet RxNorm: 450095 1-2 Tablet(s) QID as needed for pain MUST LAST 30 DAYS 03/14/2017 01/21/2019 Inactive (Response to an electronic controlled substance refill request - RxReferenceNumber: [id number]) metoprolol tartrate 100 mg tablet RxNorm: 966768 1 Tablet(s) PO BID 02/12/2017 08/20/2017 Inactive hydrocodone 10 mg-acetaminophen 325 mg tablet RxNorm: 507812 1-2 Tablet(s) QID as needed for pain MUST LAST 30 DAYS 02/08/2017 03/09/2017 Inactive (Response to an electronic controlled substance refill request - RxReferenceNumber: [id number]) metoprolol tartrate 100 mg tablet RxNorm: 198039 TAKE O NE TABLET BY MOUTH TWICE A DAY 01/11/2017 02/12/2017 Inactive metoprolol tartrate 100 mg tablet RxNorm: 670772 1 Tablet(s) PO BID 12/18/2016 12/17/2016 Inactive metoprolol tartrate 100 mg tablet RxNorm: 347557 1 Tablet(s) PO BID 12/18/2016 01/10/2017 Inactive furosemide 40 mg tablet RxNorm: 669661 1 Tablet(s) PO Q AM prn edema--take with potassium 12/13/2016 02/10/2017 Inactive amitriptyline 100 mg tablet RxNorm: 330263 1 Tablet(s) PO QHS 11/2812/12/2016 Inactive baclofen 20 mg tablet RxNorm: 907254 1 Tablet(s) PO TID as needed for muscle spasm 11/14/2016 04/01/2017 Inactive triamterene 75 mg-hydrochlorothiazide 50 mg tablet RxNorm: 3 29495 1 Tablet(s) PO QD 11/14/2016 11/13/2016 Inactive metolazone 2.5 mg tablet RxNorm: 594578 TAKE ONE TABLET BY MOUTH DAILY NEEDED FOR EDEMA 11/14/2016 12/12/2016 Inactive triamterene 75 mg-hydrochlorothiazide 50 mg tablet RxNorm: 3 60866 1 Tablet(s) PO QD 11/14/2016 07/18/2017 Inactive amitriptyline 50 mg tablet RxNorm: 803071 TAKE ONE TABL ET BY MOUTH AT BEDTIME NEEDED FOR SLEEP 11/14/2016 11/27/2016 Inactive Cymbalta 60 mg capsule,delayed release RxNorm: 316534 1 Capsule (s) PO QHS 11/14/2016 12/12/2016 Inactive clonidine HCl 0.1 mg tablet RxNorm: 720622 1 Tablet(s) PO QID 11/1304/04/2017 Inactive amitriptyline 50 mg tablet RxNorm: 410386 1 Tablet(s) P O QHS as needed for sleep 11/01/2016 11/27/2016 Inactive duloxetine 60 mg capsule,delayed release RxNorm: 083327 TAKE ONE CAPSULE BY MOUTH DAILY 10/20/2016 01/17/2017 Inactive allopurinol 300 mg tablet RxNorm: 148587 TAKE ONE TABLET BY LOPEZ TH DAILY 10/20/2016 01/16/2017 Inactive Lyrica 75 mg capsule RxNorm: 901010 TAKE ONE CAPSULE BY MOUTH EVERY NIGHT AT BEDTIME 10/20/2016 12/10/2016 Inactive Klor-Con 8 mEq tablet,extended release RxNorm: 725158 T FARRUKH ONE TABLET BY MOUTH TWICE A DAY 10/20/2016 01/17/2017 Inactive Celebrex 200 mg capsule RxNorm: 602788 TAKE ONE CAPSULE BY MOUT H TWICE A DAY 10/20/2016 07/18/2017 Inactive Bystolic 10 mg tablet RxNorm: 144515 TAKE ONE TABLET BY MOUTH EVERY NIGHT AT BEDTIME 10/20/2016 12/17/2016 Inactive amlodipine 5 mg-benazepril 20 mg capsule RxNorm: 912958 TAKE ONE CAPSULE BY MOUTH EVERY NIGHT AT BEDTIME -- TO REPLACE AMLODOPINE 10/20/20162016 Inactive Lipitor 10 mg tablet RxNorm: 489516 TAKE ONE TABLET BY MOUTH EVERY NIGHT AT BEDTIME 10/20/2016 01/17/2017 Inactive alprazolam 0.5 mg tablet RxNorm: 544105 3 Tablet(s) PO QHS as needed for sleep/anxiety 09/20/2016 10/31/2016 Inactive Tamiflu 75 mg capsule RxNorm: 059630 1 Capsule(s) PO QD 09/19/2016 Inactive Lyrica 75 mg capsule RxNorm: 525088 1 Capsule(s) PO QHS 09/19/2016 Inactive prednisone 20 mg tablet RxNorm: 066526 1 Tablet(s) PO QD 08/10/2016 1 10/17/2015 Inactive doxycycline hyclate 100 mg capsule RxNorm: 8541720 1 Capsule(s) PO BID 08/10/2016 08/19/2016 Inactive Medrol (Dustin) 4 mg tablets in a dose pack RxNorm: 922440 Tablet(s) PO As Directed 07/31/2016 08/22/2016 Inactive Singulair 10 mg tablet RxNorm: 388966 TAKE ONE TABLET BY MOUTH JOSÉ Y 07/27/2016 07/18/2017 Inactive hydrocodone 10 mg-acetaminophen 325 mg tablet RxNorm: 636495 1-2 Tablet(s) QID as needed for pain MUST LAST 30 DAYS 07/26/2016 08/24/2016 Inactive (Response to an electronic controlled substance refill request - RxReferenceNumber: [id number]) alprazolam 0.5 mg tablet RxNorm: 669050 3 Tablet(s) PO QHS as needed for anxiety or sleep 07/26/2016 09/20/2016 Inactive clindamycin 300 mg capsule RxNorm: 329897 1 Capsule(s) PO TID 07/2007/29/2016 Inactive Diflucan 100 mg tablet RxNorm: 132621 1 Tablet(s) PO QD 07/20/2016 Inactive Levaquin 500 mg tablet RxNorm: 831033 1 Tablet(s) PO QD 07/17/2016 Inactive Levaquin 500 mg tablet RxNorm: 352871 1 Tablet(s) PO QD 07/10/2016 Inactive Levaquin 500 mg tablet RxNorm: 770681 1 Tablet(s) PO QD 07/10/2016 Inactive mupirocin 2 % topical ointment RxNorm: 542595 TOP Apply topically to affected areas twice daily 07/06/2016 09/18/2016 Inactive Singulair 10 mg tablet RxNorm: 119221 TAKE ONE TABLET BY MOUTH JOSÉ Y 06/21/2016 01/21/2019 Inactive alprazolam 0.5 mg tablet RxNorm: 154458 TAKE THREE TABL ETS BY MOUTH AT BEDTIME NEEDED FOR SLEEP OR STRESS 05/22/2016 06/20/2016 Inactive triamterene 75 mg-hydrochlorothiazide 50 mg tablet RxNorm: 3 00207 1 Tablet(s) PO QD 04/26/2016 01/12/2020 Inactive Premarin 1.25 mg tablet RxNorm: 893116 1-2 Tablet(s) PO QD 04/26/20 16 03/20/2017 Inactive Klor-Con 8 mEq tablet,extended release RxNorm: 322486 1 Tablet( s) PO BID 04/26/2016 10/19/2016 Inactive Celebrex 200 mg capsule RxNorm: 097951 1 Capsule(s) PO BID TAKE ONE CAPSULE BY MOUTH EVERY DAY 04/26/2016 10/19/2016 Inactive Lipitor 10 mg tablet RxNorm: 868094 1 Tablet(s) PO QHS 04/26/201605/2017 Inactive allopurinol 300 mg tablet RxNorm: 521046 1 Tablet(s) PO QD TAKE ONE TABLET BY MOUTH EVERY DAY 04/26/2016 10/19/2016 Inactive amlodipine 5 mg-benazepril 20 mg capsule RxNorm: 977621 1 Capsule(s) PO QHS replaces amlodopine 04/26/2016 10/19/2016 Inactive duloxetine 60 mg capsule,delayed release RxNorm: 106164 1 Capsu le(s) PO QD 04/26/2016 10/19/2016 Inactive Bystolic 10 mg tablet RxNorm: 594537 1 Tablet(s) PO QHS 04/26/2016 Inactive Singulair 10 mg tablet RxNorm: 399271 1 Tablet(s) PO QD TAKE ONE TABLET BY MOUTH DAILY 04/26/2016 06/20/2016 Inactive clonidine HCl 0.1 mg tablet RxNorm: 458509 1 Tablet(s) PO QID 04/2610/22/2016 Inactive hydrocodone 10 mg-acetaminophen 325 mg tablet RxNorm: 686438 1-2 Tablet(s) QID as needed for pain TAKE ONE TO TWO TABLETS BY MOUTH FOUR TIMES A DAY . MUST LAST 30 DAYS 03/31/2016 04/29/2016 Inactive (Response to an electronic controlled substance refill request - RxReferenceNumber: [id number]) Klor-Con 8 mEq tablet,extended release RxNorm: 283746 T FARRUKH ONE TABLET BY MOUTH TWICE A DAY 03/24/2016 09/29/2019 Inactive prednisone 20 mg tablet RxNorm: 584060 1 Tablet(s) PO QD 03/09/2016 0 03/08/2016 Inactive prednisone 20 mg tablet RxNorm: 078036 1 Tablet(s) PO QD 03/09/2016 0 03/13/2016 Inactive alprazolam 0.5 mg tablet RxNorm: 566284 3 Tablet(s) PO QHS as needed for sleep/stress 03/02/2016 01/21/2019 Inactive mupirocin 2 % topical ointment RxNorm: 040987 TOP twice daily to affected areas of face and neck 02/21/2016 04/25/2016 Inactive clonidine HCl 0.1 mg tablet RxNorm: 048339 TAKE ONE TAB LET BY MOUTH FOUR TIMES A DAY 02/15/2016 09/29/2019 Inactive clonidine HCl 0.1 mg tablet RxNorm: 572895 1 Tablet(s) PO QID 02/1404/25/2016 Inactive Premarin 1.25 mg tablet RxNorm: 387417 1-2 Tablet(s) PO QD 02/15/20 16 03/15/2016 Inactive Klor-Con 8 mEq tablet,extended release RxNorm: 727068 T FARRUKH ONE TABLET BY MOUTH TWICE A DAY 02/15/2016 03/15/2016 Inactive potassium chloride ER 20 mEq tablet,extended release(part/cr yst) RxNorm: 522165 2 Tablet(s) PO BID 02/15/2016 03/15/2016 Inactive Macrobid 100 mg capsule RxNorm: 933008 1 Capsule(s) PO BID 01/24/20 16 01/30/2016 Inactive prednisone 20 mg tablet RxNorm: 911501 Take 3tabs PO QD x 2 days, then 2 tabs PO QD x 2 days, then 1 tab PO QD x 2 days, then 1/2 tab PO QDy x 2 days 12/23/2015 04/25/2016 Inactive Klor-Con 8 mEq tablet,extended release RxNorm: 059564 T FARRUKH ONE TABLET BY MOUTH TWICE A DAY 12/20/2015 02/14/2016 Inactive alprazolam 1 mg tablet RxNorm: 821314 1 1/2 Tablet(s) PO QHS 201501/23/2016 Inactive nystatin 100,000 unit/gram topical cream RxNorm: 012019 APPLY TO AFFECTED AREA(S) TWO TIMES A DAY 11/30/2015 12/14/2015 Inactive Singulair 10 mg tablet RxNorm: 232692 TAKE ONE TABLET BY MOUTH JOSÉ Y 11/18/2015 04/25/2016 Inactive allopurinol 300 mg tablet RxNorm: 297724 1 Tablet(s) PO QD TAKE ONE TABLET BY MOUTH EVERY DAY 10/26/2015 04/22/2016 Inactive Singulair 10 mg tablet RxNorm: 529608 TAKE ONE TABLET BY MOUTH JOSÉ Y 10/26/2015 11/17/2015 Inactive duloxetine 60 mg capsule,delayed release RxNorm: 092254 1 Capsu le(s) PO QD 10/26/2015 04/22/2016 Inactive triamterene 75 mg-hydrochlorothiazide 50 mg tablet RxNorm: 3 63396 1 Tablet(s) PO QD 10/26/2015 11/14/2016 Inactive potassium chloride ER 20 mEq tablet,extended release(part/cr yst) RxNorm: 565296 2 Tablet(s) PO BID 10/26/2015 02/14/2016 Inactive Lipitor 10 mg tablet RxNorm: 707573 1 Tablet(s) PO QHS 10/26/2015 Inactive amlodipine 5 mg-benazepril 20 mg capsule RxNorm: 642780 1 Capsule(s) PO QHS replaces amlodopine 10/26/2015 04/22/2016 Inactive Bystolic 10 mg tablet RxNorm: 757456 1 Tablet(s) PO QHS 10/26/2015 Inactive amlodipine 5 mg-benazepril 20 mg capsule RxNorm: 395932 1 Capsule(s) PO QHS replaces amlodopine 10/06/2015 10/25/2015 Inactive amlodipine 5 mg tablet RxNorm: 000477 1 Tablet(s) PO QHS 09/30/2015 0 04/25/2016 Inactive metolazone 2.5 mg tablet RxNorm: 367247 TAKE ONE TABLET BY MOUTH DAILY NEEDED FOR EDEMA 09/30/2015 01/21/2019 Inactive duloxetine 60 mg capsule,delayed release RxNorm: 484189 1 Capsu le(s) PO QD 09/30/2015 10/25/2015 Inactive cephalexin 500 mg capsule RxNorm: 260718 1 Capsule(s) PO BID 201509/23/2015 Inactive mupirocin 2 % topical ointment RxNorm: 636589 TOP twice daily to affected areas of face and neck 09/14/2015 02/20/2016 Inactive baclofen 20 mg tablet RxNorm: 125058 1 Tablet(s) PO TID as needed for muscle spasm 09/01/2015 11/14/2016 Inactive clonidine HCl 0.1 mg tablet RxNorm: 736591 1 Tablet(s) PO QID 09/0102/14/2016 Inactive alprazolam 1 mg tablet RxNorm: 981616 1 1/2 Tablet(s) PO QHS 201409/09/2015 Inactive baclofen 20 mg tablet RxNorm: 923023 1 Tablet(s) PO TID as needed for muscle spasm 07/23/2015 09/01/2015 Inactive omeprazole 40 mg capsule,delayed release RxNorm: 623718 1 Capsu le(s) PO QD 07/23/2015 04/25/2016 Inactive alprazolam 1 mg tablet RxNorm: 350116 1 1/2 Tablet(s) PO QHS 201408/10/2015 Inactive Bystolic 10 mg tablet RxNorm: 486579 1 Tablet(s) PO BID 06/24/2015 Inactive allopurinol 300 mg tablet RxNorm: 970038 1 Tablet(s) PO QD TAKE ONE TABLET BY MOUTH EVERY DAY 06/23/2015 10/20/2015 Inactive alprazolam 1 mg tablet RxNorm: 564350 1 1/2 Tablet(s) PO QHS 201407/06/2015 Inactive clonidine HCl 0.1 mg tablet RxNorm: 899389 1 Tablet(s) PO QID 06/0209/01/2015 Inactive clonidine HCl 0.1 mg tablet RxNorm: 614982 1 Tablet(s) PO QID 06/0206/01/2015 Inactive Cymbalta 60 mg capsule,delayed release RxNorm: 650215 1 Capsule (s) PO QHS 06/02/2015 08/30/2015 Inactive Cymbalta 60 mg capsule,delayed release RxNorm: 571571 1 Capsule (s) PO QHS 06/02/2015 06/01/2015 Inactive clonidine HCl 0.1 mg tablet RxNorm: 899368 1 Tablet(s) PO TID 05/3106/01/2015 Inactive replaces 0.2mg dose metolazone 2.5 mg tablet RxNorm: 446201 TAKE ONE TABLET BY MOUTH DAILY NEEDED FOR EDEMA 05/21/2015 06/19/2015 Inactive Singulair 10 mg tablet RxNorm: 453549 TAKE ONE TABLET BY MOUTH JOSÉ Y 05/21/2015 10/17/2015 Inactive Cymbalta 30 mg capsule,delayed release RxNorm: 102495 1 Capsule (s) PO QHS 05/20/2015 11/14/2016 Inactive betamethasone valerate 0.1 % topical cream RxNorm: 933199 Appli cation TOP BID 05/10/2015 04/25/2016 Inactive Bactroban 2 % topical ointment RxNorm: 509117 Application TOP BID 0 05/10/2015 06/20/2015 Inactive baclofen 20 mg tablet RxNorm: 527628 1 Tablet(s) PO TID as needed 0 04/26/2015 07/23/2015 Inactive Lipitor 10 mg tablet RxNorm: 215158 1 Tablet(s) PO QHS 04/26/201508/2016 Inactive clonidine HCl 0.1 mg tablet RxNorm: 862735 1 Tablet(s) PO TID 04/2605/30/2015 Inactive replaces 0.2mg dose Klor-Con 8 mEq tablet,extended release RxNorm: 812223 1 Tablet( s) PO BID 04/26/2015 04/25/2016 Inactive metolazone 2.5 mg tablet RxNorm: 908237 1 Tablet(s) PO QD as ne eded for edema 04/26/2015 04/25/2015 Inactive triamterene 75 mg-hydrochlorothiazide 50 mg tablet RxNorm: 3 41948 1 Tablet(s) PO QD 04/26/2015 10/22/2015 Inactive Premarin 1.25 mg tablet RxNorm: 591773 1-2 Tablet(s) PO QD 04/26/20 15 10/22/2015 Inactive Bystolic 10 mg tablet RxNorm: 421746 1 Tablet(s) PO QAM TAKE ONE TABLET BY MOUTH EVERY MORNING 04/23/2015 06/23/2015 Inactive clonidine HCl 0.1 mg tablet RxNorm: 168172 1 Tablet(s) PO TID 03/2304/25/2015 Inactive replaces 0.2mg dose nystatin 100,000 unit/gram topical cream RxNorm: 191739 Applica tion TOP BID 03/23/2015 06/20/2015 Inactive baclofen 20 mg tablet RxNorm: 544553 1 Tablet(s) PO TID as needed 0 03/23/2015 04/25/2015 Inactive Premarin 1.25 mg tablet RxNorm: 171832 1-2 Tablet(s) PO QD 03/23/20 15 04/25/2015 Inactive Klor-Con 8 mEq tablet,extended release RxNorm: 464825 1 Tablet( s) PO BID 03/23/2015 04/25/2015 Inactive cefdinir 300 mg capsule RxNorm: 893166 2 Capsule(s) PO QD 03/16/2015 03/25/2015 Inactive baclofen 20 mg tablet RxNorm: 889641 1 Tablet(s) PO TID as needed 0 03/02/2015 03/22/2015 Inactive allopurinol 300 mg tablet RxNorm: 723794 1 Tablet(s) PO QD TAKE ONE TABLET BY MOUTH EVERY DAY 02/22/2015 05/22/2015 Inactive Klor-Con M20 mEq tablet,extended release RxNorm: 185925 2 Tablet(s) PO BID to use with lasix 02/22/2015 06/20/2015 Inactive clonidine HCl 0.1 mg tablet RxNorm: 364938 1 Tablet(s) PO TID 02/1903/22/2015 Inactive replaces 0.2mg dose Lipitor 10 mg tablet RxNorm: 358720 1 Tablet(s) PO QHS 01/20/201506/2015 Inactive Lipitor 10 mg tablet RxNorm: 889053 1 Tablet(s) PO QHS 01/20/2015 Inactive Singulair 10 mg tablet RxNorm: 937128 1 Tablet(s) PO QD TAKE ONE TABLET BY MOUTH EVERY DAY 11/20/2014 05/18/2015 Inactive Lipitor 10 mg tablet RxNorm: 863478 1 Tablet(s) PO QHS 11/20/201408/2015 Inactive allopurinol 300 mg tablet RxNorm: 296692 1 Tablet(s) PO QD TAKE ONE TABLET BY MOUTH EVERY DAY 11/20/2014 02/16/2015 Inactive Bystolic 10 mg tablet RxNorm: 513062 1 Tablet(s) PO QAM TAKE ONE TABLET BY MOUTH EVERY MORNING 11/20/2014 04/22/2015 Inactive Klor-Con 8 mEq tablet,extended release RxNorm: 479665 1 Tablet( s) PO BID 11/20/2014 02/17/2015 Inactive baclofen 20 mg tablet RxNorm: 613173 1 Tablet(s) PO TID as needed 0 11/20/2014 01/21/2019 Inactive baclofen 20 mg tablet RxNorm: 167315 1 Tablet(s) PO TID as needed 0 10/27/2014 11/19/2014 Inactive baclofen 20 mg tablet RxNorm: 098001 1 Tablet(s) PO TID as needed 0 10/26/2014 03/01/2015 Inactive allopurinol 300 mg tablet RxNorm: 826849 1 Tablet(s) PO QD TAKE ONE TABLET BY MOUTH EVERY DAY 10/26/2014 11/20/2014 Inactive Bystolic 10 mg tablet RxNorm: 595778 1 Tablet(s) PO QAM TAKE ONE TABLET BY MOUTH EVERY MORNING 10/26/2014 11/20/2014 Inactive clonidine HCl 0.1 mg tablet RxNorm: 974782 1 Tablet(s) PO TID 09/2805/27/2019 Inactive replaces 0.2mg dose clonidine HCl 0.1 mg tablet RxNorm: 113011 1 Tablet(s) PO TID 09/2802/18/2015 Inactive replaces 0.2mg dose baclofen 20 mg tablet RxNorm: 680212 1 Tablet(s) PO TID as needed 1 11/01/2013 08/30/2014 Inactive Lipitor 10 mg tablet RxNorm: 630890 1 Tablet(s) PO QHS 08/31/2014 Inactive baclofen 20 mg tablet RxNorm: 237497 1 Tablet(s) PO TID as needed 1 11/01/2013 10/26/2014 Inactive triamterene 75 mg-hydrochlorothiazide 50 mg tablet RxNorm: 3 47459 1 Tablet(s) PO QD 08/31/2014 02/26/2015 Inactive Klor-Con 8 mEq tablet,extended release RxNorm: 204724 1 Tablet( s) PO BID 08/31/2014 11/20/2014 Inactive baclofen 20 mg tablet RxNorm: 165291 1 Tablet(s) PO TID as needed 1 09/30/2013 10/25/2014 Inactive baclofen 20 mg tablet RxNorm: 046585 1 Tablet(s) PO TID as needed 1 09/30/2013 08/31/2014 Inactive omeprazole 40 mg capsule,delayed release RxNorm: 152009 1 Capsu le(s) PO QD 07/21/2014 07/23/2015 Inactive Flonase 50 mcg/actuation nasal spray,suspension RxNorm: 8963 23 1 [place]ridge NASAL BID 07/15/2014 04/09/2017 Inactive hydrocodone 10 mg-acetaminophen 325 mg tablet RxNorm: 939865 1-2 Tablet(s) QID as needed for pain TAKE ONE TO TWO TABLETS BY MOUTH FOUR TIMES A DAY . MUST LAST 30 DAYS 06/30/2014 07/27/2014 Inactive (Response to an electronic controlled substance refill request - RxReferenceNumber: [id number]) baclofen 20 mg tablet RxNorm: 536571 1 Tablet(s) PO TID as needed 1 07/31/2014 Inactive Singulair 10 mg tablet RxNorm: 338451 1 Tablet(s) PO QD TAKE ONE TABLET BY MOUTH EVERY DAY 05/25/2014 11/20/2014 Inactive Bystolic 10 mg tablet RxNorm: 560142 TAKE ONE TABLET BY MOUTH E VERY MORNING 05/25/2014 09/21/2014 Inactive allopurinol 300 mg tablet RxNorm: 836882 1 Tablet(s) PO QD TAKE ONE TABLET BY MOUTH EVERY DAY 05/25/2014 10/21/2014 Inactive baclofen 20 mg tablet RxNorm: 488214 1 Tablet(s) PO TID as needed 0 05/25/2014 06/29/2014 Inactive allopurinol 300 mg tablet RxNorm: 108325 TAKE ONE TABLET BY LOPEZ TH EVERY DAY 05/25/2014 09/21/2014 Inactive Singulair 10 mg tablet RxNorm: 748772 1 Tablet(s) PO QD TAKE ONE TABLET BY MOUTH EVERY DAY 05/25/2014 05/24/2014 Inactive Bystolic 10 mg tablet RxNorm: 385513 1 Tablet(s) PO QAM TAKE ONE TABLET BY MOUTH EVERY MORNING 05/25/2014 10/21/2014 Inactive metolazone 2.5 mg tablet RxNorm: 267531 1 Tablet(s) PO QD as ne eded for edema 05/18/2014 04/25/2015 Inactive Lasix 40 mg tablet RxNorm: 675213 1 Tablet(s) PO QAM s hould take potassium supplementation with this medication 05/14/2014 05/17/2014 Inactive hydrocodone 10 mg-acetaminophen 325 mg tablet RxNorm: 329552 1-2 Tablet(s) QID as needed for pain TAKE ONE TO TWO TABLETS BY MOUTH FOUR TIMES A DAY . MUST LAST 30 DAYS 05/07/2014 06/05/2014 Inactive (Response to an electronic controlled substance refill request - RxReferenceNumber: [id number]) alprazolam 0.5 mg tablet RxNorm: 572991 TAKE ONE TABLET BY MOUTH TWICE A DAY , MUST LAST 30 DAYS 05/07/2014 05/22/2016 Inactive (Response to a n electronic controlled substance refill request - RxReferenceNumber: [id number]) diclofenac sodium 75 mg tablet,delayed release RxNorm: 06344 6 1 Tablet(s) PO BID for pain 04/24/2014 07/20/2014 Inactive Celebrex 200 mg capsule RxNorm: 123348 TAKE ONE CAPSULE BY MOUT H EVERY DAY 04/24/2014 07/20/2014 Inactive alprazolam 0.5 mg tablet RxNorm: 922663 TAKE ONE TABLET BY MOUTH TWICE A DAY , MUST LAST 30 DAYS 03/24/2014 04/22/2014 Inactive (Response to a n electronic controlled substance refill request - RxReferenceNumber: [id number]) diclofenac sodium 75 mg tablet,delayed release RxNorm: 07050 6 1 Tablet(s) PO BID for pain 03/24/2014 04/24/2014 Inactive clonidine HCl 0.1 mg tablet RxNorm: 114866 1 Tablet(s) PO TID 03/2409/28/2014 Inactive replaces 0.2mg dose Klor-Con 8 mEq tablet,extended release RxNorm: 754226 1 Tablet( s) PO BID 02/26/2014 08/31/2014 Inactive diclofenac sodium 75 mg tablet,delayed release RxNorm: 97259 6 1 Tablet(s) PO BID for pain 02/25/2014 03/24/2014 Inactive hydrocodone 10 mg-acetaminophen 325 mg tablet RxNorm: 849581 1-2 Tablet(s) QID as needed for pain TAKE ONE TO TWO TABLETS BY MOUTH FOUR TIMES A DAY . MUST LAST 30 DAYS 02/25/2014 03/26/2014 Inactive (Response to an electronic controlled substance refill request - RxReferenceNumber: [id number]) alprazolam 0.5 mg tablet RxNorm: 076303 Tablet(s) PO BI D as needed for anxiety TAKE ONE TABLET BY MOUTH TWICE A DAY , MUST LAST 30 DAYS 02/25/2014 Inactive (Response to an electronic controlled [place] bstance refill request - RxReferenceNumber: [id number]) [AttnRPh: Saving apply/adjudicate RxGRP:SG20 RxBIN:[id number] RxN: ID#:[id number]] alprazolam 0.5 mg tablet RxNorm: 181381 Tablet(s) TAKE ONE TABLET BY MOUTH TWICE A DAY , MUST LAST 30 DAYS 01/27/2014 02/24/2014 Inactive (Respo nse to an electronic controlled substance refill request - RxReferenceNumber: [id number]) [AttnRPh: Saving apply/adjudicate RxGRP:SG20 RxBIN:[id number] RxN: ID#:[id number]] hydrocodone 10 mg-acetaminophen 325 mg tablet RxNorm: 510510 1-2 Tablet(s) QID as needed for pain TAKE ONE TO TWO TABLETS BY MOUTH FOUR TIMES A DAY . MUST LAST 30 DAYS 01/27/2014 02/24/2014 Inactive (Response to an electronic controlled substance refill request - RxReferenceNumber: [id number]) alprazolam 0.5 mg tablet RxNorm: 352186 TAKE ONE TABLET BY MOUTH TWICE A DAY , MUST LAST 30 DAYS 01/27/2014 01/26/2014 Inactive (Response to a n electronic controlled substance refill request - RxReferenceNumber: [id number]) Premarin 1.25 mg tablet RxNorm: 735692 1-2 Tablet(s) PO QD 01/28/20 14 07/25/2014 Inactive alprazolam 0.5 mg tablet RxNorm: 380251 TAKE ONE TABLET BY MOUTH TWICE A DAY , MUST LAST 30 DAYS 01/27/2014 01/27/2014 Inactive (Response to a n electronic controlled substance refill request - RxReferenceNumber: [id number]) hydrocodone 10 mg-acetaminophen 325 mg tablet RxNorm: 097567 TAKE ONE TO TWO TABLETS BY MOUTH FOUR TIMES A DAY . MUST LAST 30 DAYS 01/27/20142013 Inactive (Response to an electronic controlled [place] bstance refill request - RxReferenceNumber: [id number]) Celebrex 200 mg capsule RxNorm: 705925 1 Capsule(s) PO QD TAKE ONE CAPSULE BY MOUTH EVERY DAY 12/29/2013 04/27/2014 Inactive hydrocodone 10 mg-acetaminophen 325 mg tablet RxNorm: 448836 1-2 Tablet(s) PO QID as needed for severe pain 12/29/2013 01/27/2014 Inactive allopurinol 300 mg tablet RxNorm: 416051 1 Tablet(s) PO QD TAKE ONE TABLET BY MOUTH EVERY DAY 12/29/2013 05/24/2014 Inactive alprazolam 0.5 mg tablet RxNorm: 056409 TAKE ONE TABLET BY MOUTH TWICE A DAY , MUST LAST 30 DAYS 12/29/2013 01/27/2014 Inactive (Response to a n electronic controlled substance refill request - RxReferenceNumber: [id number]) Celebrex 200 mg capsule RxNorm: 450803 1 Capsule(s) PO QD TAKE ONE CAPSULE BY MOUTH EVERY DAY 12/29/2013 12/29/2013 Inactive Bystolic 10 mg tablet RxNorm: 963725 1 Tablet(s) PO QAM TAKE ONE TABLET BY MOUTH EVERY MORNING 12/29/2013 05/24/2014 Inactive Bystolic 10 mg tablet RxNorm: 423188 1 Tablet(s) PO QAM TAKE ONE TABLET BY MOUTH EVERY MORNING 12/29/2013 12/29/2013 Inactive Singulair 10 mg tablet RxNorm: 425888 1 Tablet(s) PO QD TAKE ONE TABLET BY MOUTH EVERY DAY 12/29/2013 05/25/2014 Inactive hydrocodone 10 mg-acetaminophen 325 mg tablet RxNorm: 160649 TAKE ONE TO TWO TABLETS BY MOUTH FOUR TIMES A DAY . MUST LAST 30 DAYS 12/29/20132013 Inactive (Response to an electronic controlled [place] bstance refill request - RxReferenceNumber: [id number]) Trazadone 75mg Tablet RxNorm: 1 Tablet(s) PO QHS as needed 03/23/2014 Inactive Trazadone 75mg Tablet RxNorm: 1 Tablet(s) PO QHS 12/24/20132014 Inactive Soma 350 mg tablet RxNorm: 658445 Tablet(s) PO TAKE ON E TABLET BY MOUTH THREE TIMES A DAY NEEDED FOR MUSCLE SPASMS. THIS MUST LAST 30 DAYS BETWEEN REFILLS. 12/10/2013 12/22/2013 Inactive (Appended: Cont rolled substance eRx refill - RxReferenceNumber: [id number]) diclofenac sodium 75 mg tablet,delayed release RxNorm: 91334 6 1 Tablet(s) PO BID for pain 12/10/2013 02/24/2014 Inactive allopurinol 300 mg tablet RxNorm: 794171 1 Tablet(s) PO QD 11/20/19 14 12/29/2013 Inactive alprazolam 0.5 mg tablet RxNorm: 608755 2 Tablet(s) PO BID 11/13/19 14 12/29/2013 Inactive prn clonidine 0.1 mg tablet RxNorm: 642410 1 Tablet(s) PO TID 11/12/2013 02/09/2014 Inactive replaces 0.2mg dose Klor-Con M20 mEq tablet,extended release RxNorm: 078242 2 Tablet(s) PO BID to use with lasix 11/12/2013 05/10/2014 Inactive Singulair 10 mg tablet RxNorm: 503855 1 Tablet(s) PO QD 11/12/2013 Inactive hydrocodone 10 mg-acetaminophen 325 mg tablet RxNorm: 197654 1-2 Tablet(s) PO QID as needed for severe pain 11/12/2013 12/28/2013 Inactive Bystolic 10 mg tablet RxNorm: 478519 1 Tablet(s) PO QAM 11/12/2013 Inactive Soma 350 mg tablet RxNorm: 486680 Tablet(s) PO TAKE ON E TABLET BY MOUTH THREE TIMES A DAY NEEDED FOR MUSCLE SPASMS. THIS MUST LAST 30 DAYS BETWEEN REFILLS. 10/13/2013 12/10/2013 Inactive (Appended: Cont rolled substance eRx refill - RxReferenceNumber: [id number]) hydrocodone 10 mg-acetaminophen 325 mg tablet RxNorm: 412646 1-2 Tablet(s) PO QID as needed for severe pain 10/03/2013 11/11/2013 Inactive diclofenac sodium 75 mg tablet,delayed release RxNorm: 22921 8 1 Tablet(s) PO BID for pain 09/11/2013 12/10/2013 Inactive alprazolam 0.5 mg tablet RxNorm: 806191 1 Tablet(s) PO BID May refill on 04/26/13 09/01/2013 10/30/2013 Inactive prn hydrocodone 10 mg-acetaminophen 325 mg tablet RxNorm: 148576 1-2 Tablet(s) PO QID as needed for severe pain 09/01/2013 10/02/2013 Inactive triamterene 75 mg-hydrochlorothiazide 50 mg tablet RxNorm: 3 09903 1 Tablet(s) PO QD 08/04/2013 08/31/2014 Inactive cyclobenzaprine 10 mg tablet RxNorm: 294013 1 Tablet(s) PO TID prn spasm 08/04/2013 08/13/2013 Inactive clonidine 0.1 mg tablet RxNorm: 885825 1 Tablet(s) PO TID 08/04/2013 11/11/2013 Inactive replaces 0.2mg dose cyclobenzaprine 10 mg tablet RxNorm: 081187 1 Tablet(s) PO TID prn spasm 07/23/2013 08/01/2013 Inactive hydrocodone 10 mg-acetaminophen 325 mg tablet RxNorm: 050967 2 1-2 Tablet(s) PO QID as needed for severe pain 06/09/2013 08/07/2013 Inactive Singulair 10 mg tablet RxNorm: 126383 1 Tablet(s) PO QD 05/29/2013 Inactive Klor-Con 8 mEq tablet,extended release RxNorm: 154392 1 Tablet( s) PO BID 05/29/2013 02/26/2014 Inactive allopurinol 300 mg tablet RxNorm: 972557 1 Tablet(s) PO QD 05/29/20 13 11/19/2013 Inactive Bystolic 10 mg tablet RxNorm: 609058 1 Tablet(s) PO QAM take one daily in the morning. 05/29/2013 11/11/2013 Inactive scopolamine 1.5 mg 72 hr Transderm Patch RxNorm: 088094 Application TD Q72H for motion sickness 05/26/2013 07/22/2013 Inactive Soma 350 mg tablet RxNorm: 551674 1 Tablet(s) PO TID as needed for spasm 05/19/2013 10/13/2013 Inactive diclofenac sodium 75 mg tablet,delayed release RxNorm: 08121 8 1 Tablet(s) PO BID for pain 05/14/2013 07/22/2013 Inactive allopurinol 300 mg tablet RxNorm: 681540 1 Tablet(s) PO QD 04/25/20 13 05/28/2013 Inactive alprazolam 0.5 mg tablet RxNorm: 197613 1 Tablet(s) PO BID May refill on 04/26/13 04/25/2013 06/23/2013 Inactive prn Celebrex 200 mg capsule RxNorm: 142711 1 Capsule(s) PO QD 04/16/2013 12/29/2013 Inactive alprazolam 0.5 mg tablet RxNorm: 064439 1 Tablet(s) PO BID May refill on 04/26/13 04/16/2013 04/24/2013 Inactive prn Soma 350 mg tablet RxNorm: 313607 1 Tablet(s) PO TID as needed for spasm 04/16/2013 No Stop Date Active Lasix 40 mg tablet RxNorm: 483381 1 Tablet(s) PO QAM s hould take potassium supplementation with this medication 04/16/2013 06/14/2013 Inactive clonidine 0.1 mg tablet RxNorm: 018049 1 Tablet(s) PO TID 04/16/2013 08/03/2013 Inactive replaces 0.2mg dose prednisone 20 mg tablet RxNorm: 141312 1 Tablet(s) PO BID 04/16/2013 04/20/2013 Inactive diclofenac sodium 75 mg tablet,delayed release RxNorm: 20107 8 1 Tablet(s) PO BID for pain 04/14/2013 05/13/2013 Inactive hydrocodone 10 mg-acetaminophen 325 mg tablet RxNorm: 944975 2 1-2 Tablet(s) PO QID as needed for severe pain 04/14/2013 No Stop Date Active Lasix 40 mg tablet RxNorm: 515540 1 Tablet(s) PO QAM s hould take potassium supplementation with this medication 03/31/2013 04/15/2013 Inactive Celebrex 200 mg capsule RxNorm: 035609 1 Capsule(s) PO QD 03/31/2013 04/15/2013 Inactive alprazolam 0.5 mg tablet RxNorm: 209652 1 Tablet(s) PO BID 03/28/2004/15/2013 Inactive prn hydrocodone 10 mg-acetaminophen 325 mg tablet RxNorm: 017583 2 1-2 Tablet(s) PO QID as needed for severe pain 03/10/2013 No Stop Date Active metformin ER 500 mg 24 hr tablet,extended release RxNorm: 86 1018 1 Tablet(s) PO QD 03/06/2013 07/22/2013 Inactive clindamycin 300 mg capsule RxNorm: 033770 2 Capsule(s) PO TID 03/0503/14/2013 Inactive Zaroxolyn 2.5 mg tablet RxNorm: 955749 1 Tablet(s) PO QAM 03/05/2013 05/19/2015 Inactive amlodipine 10 mg tablet RxNorm: 726306 1 Tablet(s) PO QD 03/03/2013 0 05/25/2013 Inactive Norvasc 10 mg tablet RxNorm: 244416 1 Tablet(s) PO QD 02/28/201307/11 Inactive Celebrex 200 mg capsule RxNorm: 776348 1 Capsule(s) PO QD 02/28/2013 03/30/2013 Inactive diclofenac sodium 75 mg tablet,delayed release RxNorm: 99157 8 1 Tablet(s) PO BID for pain 02/14/2013 03/15/2013 Inactive Soma 350 mg tablet RxNorm: 512794 1 Tablet(s) PO TID as needed for spasm 02/14/2013 No Stop Date Active hydrocodone 10 mg-acetaminophen 325 mg tablet RxNorm: 939622 2 1-2 Tablet(s) PO QID as needed for severe pain 02/14/2013 No Stop Date Active Norvasc 10 mg tablet RxNorm: 296405 1 Tablet(s) PO QD 02/10/201302/09 Inactive Celebrex 200 mg capsule RxNorm: 064377 1 Capsule(s) PO QD 01/27/2013 01/26/2013 Inactive Premarin 1.25 mg tablet RxNorm: 557500 1-2 Tablet(s) PO QD 01/28/20 13 06/25/2013 Inactive alprazolam 0.5 mg tablet RxNorm: 537182 1 Tablet(s) PO BID 01/28/20 13 02/25/2013 Inactive prn amlodipine 5 mg tablet RxNorm: 136813 1 Tablet(s) PO QD 01/27/2013 Inactive Celebrex 200 mg capsule RxNorm: 675553 1 Capsule(s) PO QD 01/27/2013 02/27/2013 Inactive gabapentin 600 mg tablet RxNorm: 798519 1 Tablet(s) PO QHS 01/16/20 13 07/22/2013 Inactive Soma 350 mg tablet RxNorm: 224993 1 Tablet(s) PO TID as needed for spasm 01/15/2013 No Stop Date Active hydrocodone 10 mg-acetaminophen 325 mg tablet RxNorm: 569474 2 1-2 Tablet(s) PO QID as needed for severe pain 01/15/2013 No Stop Date Active Soma 350 mg tablet RxNorm: 056292 1 Tablet(s) PO TID as needed for spasm 01/13/2013 No Stop Date Active alprazolam 0.5 mg tablet RxNorm: 949506 1 Tablet(s) PO BID 12/31/19 13 01/26/2013 Inactive prn diclofenac sodium 75 mg tablet,delayed release RxNorm: 23340 8 1 Tablet(s) PO BID for pain 12/09/2012 01/07/2013 Inactive gabapentin 600 mg tablet RxNorm: 087572 1 Tablet(s) PO QHS 12/10/19 13 01/07/2013 Inactive hydrocodone 10 mg-acetaminophen 325 mg tablet RxNorm: 142979 2 1-2 Tablet(s) PO QID as needed for severe pain 12/02/2012 No Stop Date Active Levaquin 750 mg tablet RxNorm: 388550 1 Tablet(s) PO QD 11/21/2012 Inactive Singulair 10 mg tablet RxNorm: 741156 1 Tablet(s) PO QD 11/11/2012 Inactive clonidine 0.2 mg tablet RxNorm: 141332 1 Tablet(s) PO TID 11/11/2012 04/15/2013 Inactive alprazolam 0.5 mg tablet RxNorm: 591349 1 Tablet(s) PO BID 11/12/19 13 12/10/2012 Inactive prn Klor-Con 8 mEq tablet,extended release RxNorm: 573899 1 Tablet( s) PO BID 11/11/2012 03/04/2013 Inactive hydrocodone 10 mg-acetaminophen 325 mg tablet RxNorm: 489569 2 1-2 Tablet(s) PO QID as needed for severe pain 11/06/2012 No Stop Date Active alprazolam 0.5 mg tablet RxNorm: 002304 1 Tablet(s) PO BID 10/15/19 13 11/10/2012 Inactive prn hydrocodone-acetaminophen 10 mg-325 mg tablet RxNorm: 392664 2 1-2 Tablet(s) PO QID as needed for severe pain 10/10/2012 10/09/2012 Inactive allopurinol 300 mg tablet RxNorm: 429281 1 Tablet(s) PO QD 09/20/19 13 12/18/2012 Inactive alprazolam 0.5 mg tablet RxNorm: 383719 1 Tablet(s) PO BID 09/17/19 13 10/14/2012 Inactive prn hydrocodone-acetaminophen 10 mg-325 mg tablet RxNorm: 913421 2 1-2 Tablet(s) PO QID as needed for severe pain 08/22/2012 08/21/2012 Inactive Norvasc 10 mg tablet RxNorm: 498439 1 Tablet(s) PO QD 08/12/201201/10 Inactive Premarin 1.25 mg tablet RxNorm: 657345 1-2 Tablet(s) PO QD 07/30/20 12 12/26/2012 Inactive alprazolam 0.5 mg tablet RxNorm: 691646 1 Tablet(s) PO BID 07/29/20 12 08/27/2012 Inactive prn Klor-Con 8 mEq tablet,extended release RxNorm: 305279 1 Tablet( s) PO BID 07/29/2012 11/10/2012 Inactive hydrocodone-acetaminophen 10 mg-325 mg tablet RxNorm: 151261 2 1-2 Tablet(s) PO QID as needed for severe pain 07/29/2012 No Stop Date Active Premarin 1.25 mg tablet RxNorm: 085861 1-2 Tablet(s) PO QD 07/29/20 12 07/29/2012 Inactive clonidine 0.2 mg tablet RxNorm: 414384 1 Tablet(s) PO TID 07/29/2012 10/28/2012 Inactive ketorolac 10 mg tablet RxNorm: 818535 1 Tablet(s) PO QID prn he adache 07/18/2012 No Stop Date Active hydrocodone-acetaminophen 10 mg-325 mg tablet RxNorm: 998305 2 1-2 Tablet(s) PO QID as needed for severe pain 07/03/2012 No Stop Date Active amlodipine 5 mg tablet RxNorm: 019219 1 Tablet(s) PO QD 07/02/2012 Inactive allopurinol 300 mg tablet RxNorm: 660912 1 Tablet(s) PO QD 07/02/20 12 09/19/2012 Inactive Celebrex 200 mg capsule RxNorm: 846213 1 Capsule(s) PO QD for j oint pain 06/26/2012 10/23/2012 Inactive diclofenac sodium 75 mg tablet,delayed release RxNorm: 58929 8 1 Tablet(s) PO BID for pain 06/19/2012 09/16/2012 Inactive hydrocodone-acetaminophen 10 mg-325 mg tablet RxNorm: 484181 2 1-2 Tablet(s) PO QID as needed for severe pain 06/10/2012 No Stop Date Active alprazolam 0.5 mg tablet RxNorm: 021670 1 Tablet(s) PO BID 06/03/20 12 07/02/2012 Inactive prn ketorolac 10 mg tablet RxNorm: 147619 1 Tablet(s) PO Q8H 05/27/2012 0 01/21/2019 Inactive as needed for headache hydrocodone-acetaminophen 10 mg-325 mg tablet RxNorm: 010028 2 1-2 Tablet(s) PO QID as needed for severe pain 05/15/2012 No Stop Date Active allopurinol 300 mg tablet RxNorm: 476692 1 Tablet(s) PO QD 05/14/20 12 06/12/2012 Inactive allopurinol 300 mg tablet RxNorm: 042640 1 Tablet(s) PO QD 05/14/20 12 05/13/2012 Inactive amlodipine 5 mg tablet RxNorm: 898376 1 Tablet(s) PO QD 05/01/2012 Inactive amlodipine 5 mg Tab RxNorm: 447407 1 Tablet(s) PO QD 05/01/201204/30 Inactive Celebrex 200 mg capsule RxNorm: 556420 1 Capsule(s) PO QD for j oint pain 05/01/2012 06/25/2012 Inactive Singulair 10 mg tablet RxNorm: 090902 1 Tablet(s) PO QD 05/01/2012 Inactive alprazolam 0.5 mg tablet RxNorm: 370824 1 Tablet(s) PO BID 05/01/20 12 05/30/2012 Inactive prn Celebrex 200 mg Cap RxNorm: 725648 1 Capsule(s) PO QD for joint radu n 05/01/2012 04/30/2012 Inactive hydrocodone-acetaminophen 10 mg-325 mg tablet RxNorm: 944860 2 1-2 Tablet(s) PO QID as needed for severe pain 04/19/2012 No Stop Date Active Lasix 40 mg tablet RxNorm: 178543 1 Tablet(s) PO CORTEZM alan ramirez take potassium supplementation with this medication 04/05/2012 06/03/2012 Inactive alprazolam 0.5 mg Tab RxNorm: 937835 1 Tablet(s) PO BID 04/05/2012 Inactive prn hydrocodone-acetaminophen 10 mg-325 mg Tab RxNorm: 9093093 1-2 Tablet(s) PO QID as needed for severe pain 03/25/2012 03/24/2012 Inactive clonidine 0.2 mg Tab RxNorm: 683685 1 Tablet(s) PO TID 03/08/2012 Inactive alprazolam 0.5 mg Tab RxNorm: 785365 1 Tablet(s) PO BID 03/08/2012 Inactive prn Soma 350 mg tablet RxNorm: 635381 1 Tablet(s) PO TID for spasm 02/0903/18/2012 Inactive clonidine 0.2 mg tablet RxNorm: 745180 1 Tablet(s) PO TID 03/08/2012 07/28/2012 Inactive Celebrex 200 mg Cap RxNorm: 379860 1 Capsule(s) PO QD for joint radu n 03/01/2012 04/29/2012 Inactive amlodipine 5 mg Tab RxNorm: 023642 1 Tablet(s) PO QD 02/26/201202/24 Inactive amlodipine 5 mg Tab RxNorm: 932170 1 Tablet(s) PO QD 02/26/201204/25 Inactive Bactroban 2 % Ointment RxNorm: 210108 Application TOP QID to sores 02/23/2012 No Stop Date Active amlodipine 2.5 mg tablet RxNorm: 328862 1 Tablet(s) PO QHS 02/20/2002/25/2012 Inactive doxycycline hyclate 100 mg Cap RxNorm: 3952668 1 Capsule(s) PO BID 02/20/2012 02/29/2012 Inactive hydrocodone-acetaminophen 10 mg-325 mg Tab RxNorm: 1582737 1-2 T ablet(s) PO QID 02/08/2012 No Stop Date Active alprazolam 0.5 mg Tab RxNorm: 489713 1 Tablet(s) PO BID 02/08/2012 Inactive prn Singulair 10 mg Tab RxNorm: 657399 1 Tablet(s) PO QD 02/08/201204/30 Inactive Soma 350 mg Tab RxNorm: 904435 1 Tablet(s) PO TID for spasm 012 03/07/2012 Inactive Soma 350 mg Tab RxNorm: 707587 1 Tablet(s) PO TID for spasm 012 02/05/2012 Inactive diclofenac sodium 75 mg tablet,delayed release RxNorm: 12181 8 1 Tablet(s) PO BID for pain 02/01/2012 03/18/2012 Inactive Celebrex 200 mg Cap RxNorm: 283799 1 Capsule(s) PO QD for joint radu n 01/30/2012 02/28/2012 Inactive Lasix 40 mg Tab RxNorm: 855376 1 Tablet(s) PO QAM 01/24/2012 03/18/20 12 Inactive potassium chloride ER 20 mEq tablet,extended release(part/cr yst) RxNorm: 373768 2 Tablet(s) PO BID 01/24/2012 02/22/2012 Inactive alprazolam 0.5 mg Tab RxNorm: 214763 1 Tablet(s) PO BID 01/11/2012 Inactive prn hydrocodone-acetaminophen 10 mg-325 mg Tab RxNorm: 9457691 1-2 T ablet(s) PO QID 01/11/2012 No Stop Date Active Ambien 10 mg Tab RxNorm: 609636 1 Tablet(s) PO QHS 01/11/2012 012 Inactive Klor-Con 8 mEq Tab RxNorm: 571830 1 Tablet(s) PO BID 01/11/201201/22 Inactive diclofenac sodium 75 mg Tab, Delayed Release RxNorm: 160460 1 Tablet(s) PO BID for pain 01/10/2012 01/31/2012 Inactive Ambien 10 mg Tab RxNorm: 606087 1 Tablet(s) PO QHS 12/11/2011 012 Inactive alprazolam 0.5 mg Tab RxNorm: 127678 1 Tablet(s) PO BID 12/11/2011 Inactive prn hydrocodone 10 mg-acetaminophen 325 mg tablet RxNorm: 862582 1-2 Tablet(s) PO TID 11/28/2011 No Stop Date Active as needed for pa in - Previous quantity #240, will start dosing for #180 in April 2011 per Doctor Td. Ambien 10 mg Tab RxNorm: 914461 1 Tablet(s) PO QHS 11/09/2011 012 Inactive alprazolam 0.5 mg Tab RxNorm: 017963 1 Tablet(s) PO BID 11/09/2011 Inactive prn hydrocodone-acetaminophen 10 mg-325 mg Tab RxNorm: 0284207 1-2 T ablet(s) PO TID 11/06/2011 No Stop Date Active as needed for pain - Previous quantity #240, will start dosing for #180 in April 2011 per Doctor Td. Singulair 10 mg Tab RxNorm: 503726 1 Tablet(s) PO QD 10/13/201110/12 Inactive Singulair 10 mg Tab RxNorm: 108355 1 Tablet(s) PO QD 10/13/201102/06 Inactive hydrocodone-acetaminophen 10 mg-325 mg Tab RxNorm: 6723797 1-2 T ablet(s) PO TID 10/10/2011 10/09/2011 Inactive as needed for pain - Previous quantity #240, will start dosing for #180 in April 2011 per Doctor Td. hydrocodone-acetaminophen 10 mg-325 mg Tab RxNorm: 2065605 1-2 T ablet(s) PO TID 10/09/2011 No Stop Date Active as needed for pain - Previous quantity #240, will start dosing for #180 in April 2011 per Doctor Td. Klor-Con 8 mEq Tab RxNorm: 915477 1 Tablet(s) PO BID 10/02/201101/09 Inactive triamterene 75 mg-hydrochlorothiazide 50 mg tablet RxNorm: 3 80423 1 Tablet(s) PO QD 09/14/2011 03/06/2013 Inactive Ambien 10 mg Tab RxNorm: 542902 1 Tablet(s) PO QHS 09/14/2011 012 Inactive hydrocodone-acetaminophen 10 mg-325 mg Tab RxNorm: 1398022 1-2 T ablet(s) PO TID 09/14/2011 No Stop Date Active as needed for pain - Previous quantity #240, will start dosing for #180 in April 2011 per Doctor Td. alprazolam 0.5 mg Tab RxNorm: 394295 1 Tablet(s) PO BID 09/14/2011 Inactive prn Zithromax 500 mg Tab RxNorm: 417873 1 Tablet(s) PO QD 09/13/201109/10 Inactive prednisone 20 mg Tab RxNorm: 163678 1 Tablet(s) PO BID 08/31/2011 Inactive Ambien 10 mg Tab RxNorm: 209471 1 Tablet(s) PO QHS 08/17/2011 011 Inactive hydrocodone-acetaminophen 10 mg-325 mg Tab RxNorm: 5336098 1-2 T ablet(s) PO TID 08/17/2011 No Stop Date Active as needed for pain - Previous quantity #240, will start dosing for #180 in April 2011 per Doctor Td. clonidine 0.2 mg Tab RxNorm: 344551 1 Tablet(s) PO TID 08/17/201112/2011 Inactive Ambien 10 mg Tab RxNorm: 148841 1 Tablet(s) PO QHS 08/17/2011 019 Inactive alprazolam 0.5 mg Tab RxNorm: 475255 1 Tablet(s) PO BID 08/17/2011 Inactive prn hydrocodone-acetaminophen 10 mg-325 mg Tab RxNorm: 7871944 1-2 T ablet(s) PO TID 08/17/2011 08/16/2011 Inactive as needed for pain - Previous quantity #240, will start dosing for #180 in April 2011 per Doctor Td. Singulair 10 mg Tab RxNorm: 046156 1 Tablet(s) PO QD 08/17/201108/16 Inactive Klor-Con 8 mEq Tab RxNorm: 247800 1 Tablet(s) PO QD 08/17/20112011 Inactive alprazolam 0.5 mg Tab RxNorm: 575783 1 Tablet(s) PO BID 07/20/2011 Inactive prn Ambien 10 mg Tab RxNorm: 166439 1 Tablet(s) PO QHS 07/20/2011 012 Inactive Singulair 10 mg Tab RxNorm: 874877 1 Tablet(s) PO QD 07/20/201107/19 Inactive Premarin 1.25 mg tablet RxNorm: 946507 2 Tablet(s) PO QD 07/20/2011 0 01/21/2019 Inactive Premarin 1.25 mg tablet RxNorm: 869337 1-2 Tablet(s) PO QD 07/20/20 11 12/16/2011 Inactive Premarin 1.25 mg Tab RxNorm: 643513 1-2 Tablet(s) PO QD 07/06/2011 Inactive alprazolam 0.5 mg Tab RxNorm: 085341 1 Tablet(s) PO BID 06/22/2011 Inactive prn alprazolam 0.5 mg Tab RxNorm: 028083 1 Tablet(s) PO BID 06/22/2011 Inactive prn Premarin 1.25 mg Tab RxNorm: 929936 1 Tablet(s) PO QD m ay do 90 day fill if desired 06/22/2011 07/05/2011 Inactive hydrocodone-acetaminophen 10 mg-325 mg Tab RxNorm: 7186723 1-2 T ablet(s) PO TID 06/22/2011 No Stop Date Active as needed for pain - Previous quantity #240, will start dosing for #180 in April 2011 per Doctor Td. clonidine 0.2 mg Tab RxNorm: 266474 1 Tablet(s) PO TID 05/25/201103/2011 Inactive triamterene-hydrochlorothiazide 75 mg-50 mg Tab RxNorm: 3108 18 1 Tablet(s) PO QD 05/25/2011 09/13/2011 Inactive alprazolam 0.5 mg Tab RxNorm: 646390 1 Tablet(s) PO BID 05/25/2011 Inactive prn hydrocodone-acetaminophen 10 mg-325 mg Tab RxNorm: 9663703 1-2 T ablet(s) PO TID 05/25/2011 No Stop Date Active as needed for pain - Previous quantity #240, will start dosing for #180 in April 2011 per Doctor Td. Robaxin-750 750 mg Tab RxNorm: 667461 2 Tablet(s) PO QHS 05/22/2011 1 Inactive prn spasm hydrocodone-acetaminophen 10 mg-325 mg Tab RxNorm: 6993375 1-2 T ablet(s) PO TID 04/26/2011 No Stop Date Active as needed for pain - Previous quantity #240, will start dosing for #180 in April 2011 per Doctor Td. alprazolam 0.5 mg Tab RxNorm: 054728 1 Tablet(s) PO BID 04/25/2011 Inactive prn Klor-Con 8 mEq Tab RxNorm: 364328 1 Tablet(s) PO QD 03/30/20112010 Inactive Klor-Con 8 mEq Tab RxNorm: 908281 1 Tablet(s) PO QD 03/29/20112010 Inactive hydrocodone-acetaminophen 10 mg-325 mg Tab RxNorm: 5716098 1-2 T ablet(s) PO TID 03/20/2011 04/25/2011 Inactive as needed for pain - Previous quantity #240, will start dosing for #180 in April 2011 per Doctor Td. alprazolam 0.5 mg Tab RxNorm: 678130 1 Tablet(s) PO BID prn 011 03/30/2011 Inactive Ambien 10 mg Tab RxNorm: 314545 1 Tablet(s) PO QHS 03/01/2011 011 Inactive cyclobenzaprine 10 mg Tab RxNorm: 678843 1 Tablet(s) PO TID 011 03/18/2012 Inactive cyclobenzaprine 10 mg Tab RxNorm: 089938 1 Tablet(s) PO TID 011 01/08/2011 Inactive cyclobenzaprine 10 mg Tab RxNorm: 850661 1 Tablet(s) PO TID 011 12/20/2010 Inactive terbinafine 250 mg Tab RxNorm: 272330 1 Tablet(s) PO QD 12/12/2010 Inactive triamterene-hydrochlorothiazide 75 mg-50 mg Tab RxNorm: 3108 18 1 Tablet(s) PO QD 12/07/2010 01/12/2020 Inactive Klor-Con 8 8 mEq Tab RxNorm: 538605 1 Tablet(s) PO QD 12/07/201001/08 Inactive Premarin 1.25 mg Tab RxNorm: 704354 2 Tablet(s) PO QD 12/07/201001/08 Inactive clonidine 0.2 mg Tab RxNorm: 963014 1 Tablet(s) PO TID 12/07/2010 Inactive hydrocodone-acetaminophen 7.5 mg-650 mg Tab RxNorm: 139165 1 Ta blet(s) PO Q4H 12/05/2010 01/21/2019 Inactive hydrocodone-acetaminophen 7.5 mg-650 mg Tab RxNorm: 370595 1 Ta blet(s) PO Q4H 10/26/2010 11/14/2010 Inactive hydrocodone-acetaminophen 7.5 mg-650 mg Tab RxNorm: 279168 1 Ta blet(s) PO Q4H 10/13/2010 10/25/2010 Inactive hydrocodone-acetaminophen 7.5 mg-650 mg Tab RxNorm: 173752 1 Ta blet(s) PO Q4H 09/15/2010 09/12/2010 Inactive alprazolam 0.5 mg Tab RxNorm: 857150 1 Tablet(s) PO BID prn 011 09/12/2010 Inactive terbinafine 250 mg Tab RxNorm: 468917 1 Tablet(s) PO QD 09/05/2010 Inactive hydrocodone-acetaminophen 7.5 mg-650 mg Tab RxNorm: 679311 1 Ta blet(s) PO Q4H 08/29/2010 09/17/2010 Inactive alprazolam 0.5 mg Tab RxNorm: 225126 1 Tablet(s) PO BID prn 010 09/27/2010 Inactive alprazolam 0.5 mg Tab RxNorm: 963980 1 Tablet(s) PO BID prn 010 09/06/2010 Inactive Klor-Con 8 mEq Tab RxNorm: 024933 1 Tablet(s) PO QD 08/08/20102010 Inactive hydrocodone-acetaminophen 7.5 mg-650 mg Tab RxNorm: 897736 1 Ta blet(s) PO Q4H 08/08/2010 08/27/2010 Inactive Ambien 10 mg Tab RxNorm: 640601 1 Tablet(s) PO QHS 08/08/2010 Inactive clonidine 0.2 mg Tab RxNorm: 119913 1 Tablet(s) PO TID 08/08/2010 Inactive Premarin 1.25 mg Tab RxNorm: 553775 2 Tablet(s) PO QD 08/08/201009/12 Inactive Ambien 10 mg Tab RxNorm: 111029 1 Tablet(s) PO QHS 07/18/2010 Inactive alprazolam 0.5 mg Tab RxNorm: 494365 1 Tablet(s) PO BID prn 010 08/07/2010 Inactive hydrocodone-acetaminophen 7.5 mg-650 mg Tab RxNorm: 646606 1 Ta blet(s) PO Q4H 07/12/2010 07/31/2010 Inactive clonidine 0.2 mg Tab RxNorm: 809316 1 Tablet(s) PO TID 06/20/2010 Inactive terbinafine 250 mg Tab RxNorm: 643959 1 Tablet(s) PO QD 05/24/2010 Inactive Clonidine 0.2 mg Tab RxNorm: 334730 1 Tablet(s) PO TID 05/24/201006/2010 Inactive Ambien 10 mg Tab RxNorm: 422662 1 Tablet(s) PO QHS 05/24/2010 010 Inactive alprazolam 0.5 mg Tab RxNorm: 422883 1 Tablet(s) PO BID 05/24/2010 Inactive Klor-Con 8 mEq Tab RxNorm: 767946 1 Tablet(s) PO QD 05/24/20102009 Inactive alprazolam 0.5 mg Tab RxNorm: 274770 2 Tablet(s) PO QD prn 05/24/2007/17/2010 Inactive triamterene-hydrochlorothiazide 75 mg-50 mg Tab RxNorm: 3108 18 1 Tablet(s) PO QD 05/24/2010 11/19/2010 Inactive Ambien 10 mg Tab RxNorm: 220683 1 Tablet(s) PO QHS 05/23/2010 010 Inactive Alprazolam 0.5 mg Tab RxNorm: 087341 2 Tablet(s) PO QD prn 05/23/2005/23/2010 Inactive Premarin 1.25 mg Tab RxNorm: 848695 2 Tablet(s) PO QD 05/19/201007/12 Inactive Hydrocodone-Acetaminophen 7.5 mg-650 mg Tab RxNorm: 525533 1 Ta blet(s) PO Q4H 05/19/2010 03/20/2011 Inactive Prednisone 20 mg Tab RxNorm: 400347 1 Tablet(s) PO BID 05/17/2010 Inactive Prednisone 20 mg Tab RxNorm: 007166 1 Tablet(s) PO BID 05/06/201001/2010 Inactive Premarin 1.25 mg Tab RxNorm: 421025 Tablet(s) PO 2 M-W-F, and 1 Vu-Fo-Nhw-Sun 05/05/2010 08/02/2010 Inactive Premarin 1.25 mg Tab RxNorm: 689587 Tablet(s) PO 2 M-W-F, and 1 Nw-Rt-Yzs-Sun 05/04/2010 05/04/2010 Inactive Premarin 1.25 mg Tab RxNorm: 270668 Tablet(s) PO 2 M-W-F, and 1 Lx-Wr-Xdf-Sun 05/04/2010 05/03/2010 Inactive Prednisone 20 mg Tab RxNorm: 610387 1 Tablet(s) PO BID 04/27/2010 Inactive Alprazolam 0.5 mg Tab RxNorm: 245883 2 Tablet(s) PO QD prn 04/26/2005/22/2010 Inactive Clindamycin 300 mg Cap RxNorm: 938360 2 Capsule(s) PO TID 04/05/2010 04/18/2010 Inactive Terbinafine 250 mg Tab RxNorm: 919786 1 Tablet(s) PO QD 04/04/2010 Inactive Hydrocodone-Acetaminophen 7.5 mg-650 mg Tab RxNorm: 941045 1 Ta blet(s) PO Q4H 03/30/2010 04/18/2010 Inactive Avelox 400 mg Tab RxNorm: 855648 1 Tablet(s) PO QD 03/09/2010 010 Inactive Hydrocodone-Acetaminophen 7.5 mg-650 mg Tab RxNorm: 140202 1 Ta blet(s) PO Q4H 03/08/2010 03/27/2010 Inactive Alprazolam 0.5 mg Tab RxNorm: 778071 2 Tablet(s) PO QD prn 03/08/2004/25/2010 Inactive Klor-Con 8 mEq Tab RxNorm: 036608 1 Tablet(s) PO QD when takes lasi x 03/07/2010 09/29/2019 Inactive Premarin 1.25 mg Tab RxNorm: 163023 1 Tablet(s) PO QD 03/03/201003/11 Inactive Alprazolam 0.5 mg Tab RxNorm: 418056 1 Tablet(s) PO BID PRN 010 No Stop Date Active triamterene-hydrochlorothiazide 75 mg-50 mg Tab RxNorm: 3108 18 1 Tablet(s) PO QD 02/09/2010 02/03/2011 Inactive Hydrocodone-Acetaminophen 10 mg-750 mg Tab RxNorm: 728396 1 Tablet(s) PO Q4H PRN 02/09/2010 03/20/2011 Inactive Clonidine 0.2 mg Tab RxNorm: 068621 1 Tablet(s) PO TID 01/13/201009/2009 Inactive Alprazolam 0.5 mg Tab RxNorm: 139740 1 Tablet(s) PO BID PRN 010 01/12/2010 Inactive Hydrocodone-Acetaminophen 10 mg-750 mg Tab RxNorm: 057340 1 Tablet(s) PO Q4H PRN 01/13/2010 01/12/2010 Inactive ANGELIQ 1 mg-0.5 mg Tab RxNorm: 1183558 1 Tablet(s) PO QD 12/27/2009 01/23/2010 Inactive Lasix 40 mg Tab RxNorm: 948067 1 Tablet(s) PO QAM 12/14/2009 06/11/20 10 Inactive Vitamin B12 1000mcg Tablet RxNorm: 1 Tablet(s) PO QD No Start Date Active cyclobenzaprine 10 mg tablet RxNorm: 974665 1 Tablet(s) PO TID as needed DO NOT USE WITH BACLOFEN No Start Date Active Vitamin D 5,000 unit Tab RxNorm: 1 Tablet(s) PO QD No Start Date Active vitamin E (dl, acetate) 400 unit Cap RxNorm: 011779 1 Capsule(s ) PO QD No Start Date Active Benadryl 25 mg Cap RxNorm: 5859768 Capsule(s) PO PRN No Start Date Inactive amitriptyline 100 mg tablet RxNorm: 646108 1 Tablet(s) PO QHS No St art Date 11/27/2016 Inactive Zithromax Z-Dustin 250 mg tablet RxNorm: 805408 Tablet(s) PO as di rected No Start Date 07/22/2013 Inactive Klor-Con 8 mEq tablet,extended release RxNorm: 060776 1 Tablet( s) PO BID No Start Date 07/28/2012 Inactive scopolamine 1.5 mg 72 hr Transderm Patch RxNorm: 447610 Application TD Q72H for motion sickness No Start Date 05/25/2013 Inactive Klonopin 1 mg tablet RxNorm: 480927 1-2 Tablet(s) PO QHS as nee ded for sleep No Start Date 06/20/2015 Inactive Klor-Con M20 mEq tablet,extended release RxNorm: 202239 2 Tablet(s) PO BID to use with lasix No Start Date 11/11/2013 Inactive Bystolic 5 mg tablet RxNorm: 100494 1 Tablet(s) PO QD No Start Date 1 Inactive Bystolic 10 mg tablet RxNorm: 144882 1 Tablet(s) PO BID No Start Da te 07/06/2015 Inactive Premarin 1.25 mg Tab RxNorm: 421944 Tablet(s) PO 2 -W-, and 1 [id number] No Start Date 05/03/2010 Inactive baclofen 20 mg tablet RxNorm: 949933 1 Tablet(s) PO TID as needed for muscle spasm No Start Date 07/22/2015 Inactive hydrocodone-acetaminophen 7.5 mg-650 mg Tab RxNorm: 707680 1 Tablet(s) PO Q4H as needed for pain No Start Date 03/20/2011 Inactive albuterol sulfate 1.25 mg/3 mL Neb Solution RxNorm: 310420 1 Unit Dose INH Q4H 2boxes No Start Date 09/06/2015 Inactive Butrans 20 mcg/hour Transderm Patch RxNorm: 772642 1 TD WEEKLY apply to skin weekly after removing previous. No Start Date 07/22/2013 Inactive Medrol (Dustin) 4 mg tablets in a dose pack RxNorm: 454170 Tablet(s) PO As Directed No Start Date 07/30/2016 Inactive hydrocodone-acetaminophen 10 mg-325 mg Tab RxNorm: 8716819 1-2 Tablet(s) PO TID as needed for pain No Start Date 03/19/2011 Inactive Klonopin 1 mg tablet RxNorm: 026294 1 Tablet(s) PO QHS No Start Date 02/28/2016 Inactive honey topical RxNorm: topical No Start Date 06/16/2018 Inactive Clonidine 0.2 mg Tab RxNorm: 345284 1 Tablet(s) PO TID No Start Date 01/12/2010 Inactive ketorolac 10 mg tablet RxNorm: 561455 1 Tablet(s) PO Q8H No Start D ate 03/18/2012 Inactive as needed for headache Singulair 10 mg Tab RxNorm: 914673 1 Tablet(s) PO QD No Start Date Inactive Premarin 1.25 mg Tab RxNorm: 434063 1 Tablet(s) PO QD No Start Date 1 Inactive Flonase 50 mcg/Actuation Nasal Mobridge RxNorm: 5659086 1 Mobridge CECELIA AL BID No Start Date 03/18/2012 Inactive Terbinafine 250 mg Tab RxNorm: 345731 1 Tablet(s) PO QD No Start Da te 04/03/2010 Inactive Fexofenadine 180 mg Tab RxNorm: 2925406 1 Tablet(s) PO QD No Start Date 09/06/2015 Inactive baclofen 20 mg tablet RxNorm: 321758 1 Tablet(s) PO TID as needed N o Start Date 05/25/2014 Inactive Diovan 160 mg Tab RxNorm: 743414 1 Tablet(s) PO QD No Start Date 09/12 Inactive mupirocin 2 % topical ointment RxNorm: 456030 1 Application TOP QID No Start Date 04/25/2016 Inactive ZOFRAN ODT 4 mg Tab, Rapid Dissolve RxNorm: 297387 1 Tablet(s) PO Q4H No Start Date 03/18/2012 Inactive as needed for nausea and vomiting Alprazolam 0.5 mg Tab RxNorm: 306677 1 Tablet(s) PO BID PRN No Star t Date 01/12/2010 Inactive cyclobenzaprine 10 mg tablet RxNorm: 258373 1 Tablet(s) PO TID as needed for muscle spasm No Start Date 10/08/2017 Inactive Albuterol 0.083% Aerosol Solution RxNorm: 1 Appl ication INH Q4H Use one ampule every 4 hrs with nebulizer as needed for shortness of breath. No Start Date 10/09/2010 Inactive lorazepam 1 mg tablet RxNorm: 428044 1 1/2 Tablet(s) PO QHS No Star t Date 02/02/2016 Inactive Melatonin 3 mg Tab RxNorm: 885533 Tablet(s) PO PRN No Start Date 07/11 Inactive Medrol (Dustin) 4 mg Tabs in a Dose Pack RxNorm: 143494 Tablet(s) PO N o Start Date 11/28/2010 Inactive lorazepam 1 mg tablet RxNorm: 197333 1 Tablet(s) PO QHS as need ed for sleep No Start Date 01/30/2016 Inactive hydrocodone-acetaminophen 10 mg-325 mg Tab RxNorm: 6838424 1-2 Tablet(s) PO QID as needed for severe pain No Start Date 03/24/2012 Inactive celecoxib 200 mg capsule RxNorm: 237672 1 Capsule(s) PO BID No Star t Date 06/26/2019 Inactive amlodipine 5 mg-benazepril 20 mg capsule RxNorm: 119999 1 Capsu le(s) PO QD No Start Date 04/10/2017 Inactive Bystolic 20 mg tablet RxNorm: 302811 1/2 Tablet(s) PO QAM No Start Date 01/23/2016 Inactive Bystolic 20 mg tablet RxNorm: 757559 1 Tablet(s) PO QAM No Start Da te 04/25/2016 Inactive Ambien 10 mg Tab RxNorm: 164704 1 Tablet(s) PO QHS No Start Date 05/11 Inactive Klor-Con 8 mEq Tab RxNorm: 060023 1 Tablet(s) PO QD when takes lasix No Start Date 03/06/2010 Inactive aspirin 81 mg tablet RxNorm: 894206 1 Tablet(s) PO QD No Start Date 0 01/29/2018 Inactive hydrocodone-acetaminophen 10 mg-325 mg Tab RxNorm: 7326189 1-2 T ablet(s) PO QID No Start Date 01/10/2012 Inactive Bystolic 10 mg tablet RxNorm: 263311 1 Tablet(s) PO QAM take one daily in the morning. No Start Date 05/28/2013 Inactive nystatin 100,000 unit/mL Oral Susp RxNorm: 720227 5 Milliliter( s) PO QID No Start Date 03/18/2012 Inactive swish and spit scopolamine 1.5 mg 72 hr Transderm Patch RxNorm: 550138 1 Unit Dose TD Q72H for motion sickness No Start Date 12/23/2013 Inactive Hydrocodone-Acetaminophen 10 mg-750 mg Tab RxNorm: 941364 1 Tablet(s) PO Q4H PRN No Start Date 01/12/2010 Inactive Soma 350 mg tablet RxNorm: 193977 1 Tablet(s) PO TID as needed for spasm No Start Date 01/12/2013 Inactive baclofen 10 mg tablet RxNorm: 933895 1 Tablet(s) PO TID as needed for muscle spasm No Start Date 09/18/2019 Inactive Soma 350 mg Tab RxNorm: 906989 1 Tablet(s) PO TID for spasm No Star t Date 01/31/2012 Inactive Co Q-10 400 mg capsule RxNorm: 254539 1 Capsule(s) PO QD No Start D ate 01/21/2019 Inactive nystatin 100,000 unit/gram topical cream RxNorm: 439553 Applica tion TOP BID No Start Date 03/22/2015 Inactive Exforge 5 mg-160 mg Tab RxNorm: 284546 1 Tablet(s) PO QD No Start D ate 10/09/2010 Inactive Hydrocodone-Acetaminophen 7.5 mg-650 mg Tab RxNorm: 176085 1 Ta blet(s) PO Q4H No Start Date 03/07/2010 Inactive Robaxin-750 750 mg Tab RxNorm: 681740 1-2 Tablet(s) PO TID prn spasm No Start Date 05/21/2011 Inactive amlodipine 5 mg tablet RxNorm: 351282 1 Tablet(s) PO QHS No Start D ate 09/29/2015 Inactive oxycodone-acetaminophen 10 mg-325 mg tablet RxNorm: 4014566 1-2 Tablet(s) PO Q6H No Start Date 06/16/2018 Inactive Triamterene-Hydrochlorothiazide 75 mg-50 mg Tab RxNorm: 3108 18 1 Tablet(s) PO QD No Start Date 02/08/2010 Inactive Alprazolam 0.5 mg Tab RxNorm: 548774 2 Tablet(s) PO QD prn No Start Date 03/07/2010 Inactive Bystolic 20 mg tablet RxNorm: 248829 1 Tablet(s) PO QAM No Start Da te 08/17/2015 Inactive ketorolac 10 mg tablet RxNorm: 918281 1 Tablet(s) PO QID prn he adache No Start Date 07/17/2012 Inactive acyclovir 800 mg Tab RxNorm: 926425 1 Tablet(s) PO BID No Start Date 03/18/2012 Inactive duloxetine 60 mg capsule,delayed release RxNorm: 749602 1 Capsu le(s) PO QD No Start Date 09/29/2015 Inactive Norvasc 5 mg tablet RxNorm: 744664 1 Tablet(s) PO QHS No Start Date 1 10/18/2014 Inactive promethazine 25 mg tablet RxNorm: 072429 1 Tablet(s) PO Q8H use sparingly No Start Date 07/22/2013 Inactive alprazolam 0.5 mg tablet RxNorm: 510325 3 Tablet(s) PO QHS No Start Date 06/06/2015 Inactive Lunesta 3 mg tablet RxNorm: 454388 1 Tablet(s) PO QHS No Start Date 0 09/20/2017 Inactive hydrocodone-acetaminophen 10 mg-325 mg Tab RxNorm: 4637987 1-2 Tablet(s) PO TID as needed for pain No Start Date 12/10/2011 Inactive Coricidin HBP Cough & Cold 4 mg-30 mg Tab RxNorm: 6310570 Tablet (s) PO PRN No Start Date 10/09/2010 Inactive Bactroban 2 % Ointment RxNorm: 461642 Application TOP QID to so res No Start Date 02/22/2012 Inactive Flonase 50 mcg/actuation Nasal Mobridge RxNorm: 396270 2 Mobridge CECELIA AL QHS No Start Date 03/03/2014 Inactive Medication Administered No Medication Administered data Immunizations Vaccine Codes Date Status Tetanus, Diptheria, Pertussis CVX: 115 02/27/2014 Results Observation Observation Code Item Item Code Result Date S ervice Location MEAN GLUC 7212648 Calc Mean Gluc 209 mg/dL 02/12/2020 Unkn own GLYCOSYLATED HEMOGLOBIN TEST 26282 Hgb A1c 95236-7 8.9 % 0 02/12/2020 Unknown GFR CALC 0121550 GFR Afr Amr >60 mL/min 02/12/2020 Unknow n GFR CALC 0052614 GFR Non Afr Amr >60 mL/min 02/12/2020 Un known COMPREHENSIVE METABOLIC 70553 AST 27 U/L 2019 Unknown COMPREHENSIVE METABOLIC 10067 ALT 16 U/L 2019 Unknown COMPREHENSIVE METABOLIC 98628 BUN 22 mg/dL 2019 Unknown COMPREHENSIVE METABOLIC 86045 ALBUMIN 3.9 g/dL 2019 Unknown COMPREHENSIVE METABOLIC 33200 CHLORIDE 98 mmol/L 2019 Unknown COMPREHENSIVE METABOLIC 48236 Bili Total 0.5 mg/dL 02/11 Unknown COMPREHENSIVE METABOLIC 15085 ALK PHOS 72 U/L 2019 Unknown COMPREHENSIVE METABOLIC 81870 SODIUM 137 mmol/L 02/11 Unknown COMPREHENSIVE METABOLIC 09972 CREATININE 0.96 mg/dL 12/2019 Unknown COMPREHENSIVE METABOLIC 80750 CALCIUM 9.1 mg/dL 2019 Unknown COMPREHENSIVE METABOLIC 44945 POTASSIUM 4.6 mmol/L 02/11 Unknown COMPREHENSIVE METABOLIC 62526 Total Protein 6.5 g/dL Unknown COMPREHENSIVE METABOLIC 47943 Glucose 129 mg/dL 2019 Unknown COMPREHENSIVE METABOLIC 16048 Bicarbonate 31 mmol/L 12/2019 Unknown COMPREHENSIVE METABOLIC 69688 AGAP 8 mmol/L 2019 Unknown COMPREHENSIVE METABOLIC 09100 AST 15 U/L 2019 Unknown COMPREHENSIVE METABOLIC 23272 ALT 13 U/L 2019 Unknown COMPREHENSIVE METABOLIC 66444 BUN 12 mg/dL 2019 Unknown COMPREHENSIVE METABOLIC 74485 ALBUMIN 3.9 g/dL 2019 Unknown COMPREHENSIVE METABOLIC 88792 CHLORIDE 97 mmol/L 2019 Unknown COMPREHENSIVE METABOLIC 45294 Bili Total 0.4 mg/dL 09/29 Unknown COMPREHENSIVE METABOLIC 75245 ALK PHOS 130 U/L 2019 Unknown COMPREHENSIVE METABOLIC 99513 SODIUM 136 mmol/L 09/29 Unknown COMPREHENSIVE METABOLIC 45452 CREATININE 0.92 mg/dL 09/11 Unknown COMPREHENSIVE METABOLIC 11893 CALCIUM 9.1 mg/dL 2019 Unknown COMPREHENSIVE METABOLIC 16921 POTASSIUM 4.4 mmol/L 09/29 Unknown COMPREHENSIVE METABOLIC 83293 Total Protein 6.2 g/dL Unknown COMPREHENSIVE METABOLIC 37846 Glucose 391 mg/dL 2019 Unknown COMPREHENSIVE METABOLIC 16353 Bicarbonate 30 mmol/L 09/11 Unknown COMPREHENSIVE METABOLIC 33824 AGAP 9 mmol/L 2019 Unknown MEAN GLUC 4545262 Calc Mean Gluc 332 mg/dL 09/29/2019 Unkn own COMPLETE BLOOD COUNT [id number] WBC 7.0 10e9/L 09/29/19 Unknown COMPLETE BLOOD COUNT [id number] RBC 4.69 10e12/L 2019 Unknown COMPLETE BLOOD COUNT 8593040 HEMOGLOBIN 14.6 g/dL 09/29/19 Unknown COMPLETE BLOOD COUNT [id number] HEMATOCRIT 45.2 % 09/29/19 Unknown COMPLETE BLOOD COUNT [id number] MCV 96.4 fL 0 Unknown COMPLETE BLOOD COUNT [id number] MCH 31.1 pg 0 Unknown COMPLETE BLOOD COUNT [id number] MCHC 32.3 g/dL 0 Unknown COMPLETE BLOOD COUNT [id number] PLATELET COUNT 209 10e9/L Unknown COMPLETE BLOOD COUNT [id number] Mean Plt Volume 9.8 fL Unknown COMPLETE BLOOD COUNT 9357230 Neut Auto 48.1 % 0 Unknown COMPLETE BLOOD COUNT [id number] Lymph Auto 36.5 % 09/29/19 Unknown COMPLETE BLOOD COUNT [id number] Larue Auto 8.6 % 0 Unknown COMPLETE BLOOD COUNT [id number] Eos Auto 6.5 % 0 Unknown COMPLETE BLOOD COUNT [id number] RDW 13.4 % 0 Unknown COMPLETE BLOOD COUNT [id number] Baso Auto 0.3 % 0 Unknown COMPLETE BLOOD COUNT [id number] Neutrophil Abs 3.37 10e9/L Unknown COMPLETE BLOOD COUNT [id number] Lymphocyte Abs 2.56 10e9/L Unknown COMPLETE BLOOD COUNT [id number] Monocyte Abs 0.60 10e9/L 09/11 Unknown COMPLETE BLOOD COUNT [id number] Eosinophil Abs 0.46 10e9/L Unknown COMPLETE BLOOD COUNT [id number] Basophil Abs 0.02 10e9/L 09/11 Unknown COMPLETE BLOOD COUNT [id number] RDW-SD 45.9 fL 0 Unknown LIPID GROUP 12307 Cholesterol 248 mg/dL 09/29/2019 Unkno wn LIPID GROUP 17012 Triglyceride 898 mg/dL 09/29/2019 Unkn own LIPID GROUP 66646 HDL CHOLESTEROL 41 mg/dL 09/29/2019 U nknown LIPID GROUP 04668 Chol/HDL Ratio 6.05 ratio 09/29/2019 U nknown LIPID GROUP 61741 NON-HDL Chol 207 mg/dL 09/29/2019 Unkn own LIPID GROUP 49485 LDL Cholesterol N/A Trig >400 020 Unknown GLYCOSYLATED HEMOGLOBIN TEST 02719 Hgb A1c 74408-5 13.2 % 0 09/29/2019 Unknown FREE T4 63413 T4 Free 0.75 ng/dL 09/29/2019 Unknown GFR CALC 6921077 GFR Non Afr Amr >60 mL/min 09/29/2019 Un known GFR CALC 1314353 GFR Afr Amr >60 mL/min 09/29/2019 Unknow n THYROID STIMULATING HORMONE 68429 TSH 4.245 uIU/mL 09/29/2019 Unknown COMPLETE BLOOD COUNT [id number] WBC 10.7 10e9/L 018 Unknown COMPLETE BLOOD COUNT [id number] RBC 4.59 10e12/L 2017 Unknown COMPLETE BLOOD COUNT 0364968 HEMOGLOBIN 14.8 g/dL 12/11/19 18 Unknown COMPLETE BLOOD COUNT [id number] HEMATOCRIT 44.9 % 12/11/19 18 Unknown COMPLETE BLOOD COUNT [id number] MCV 97.8 fL 8 Unknown COMPLETE BLOOD COUNT [id number] MCH 32.2 pg 8 Unknown COMPLETE BLOOD COUNT 8247431 MCHC 33.0 g/dL 8 Unknown COMPLETE BLOOD COUNT [id number] PLATELET COUNT 261 10e9/L 10/2017 Unknown COMPLETE BLOOD COUNT [id number] Mean Plt Volume 9.5 fL 10/2017 Unknown COMPLETE BLOOD COUNT 3375429 Neut Auto 59.9 % 8 Unknown COMPLETE BLOOD COUNT [id number] Lymph Auto 27.4 % 12/11/19 18 Unknown COMPLETE BLOOD COUNT 3323080 Larue Auto 8.2 % 8 Unknown COMPLETE BLOOD COUNT [id number] RDW 13.3 % 8 Unknown COMPLETE BLOOD COUNT 1064931 Eos Auto 4.1 % 8 Unknown COMPLETE BLOOD COUNT 3375896 Baso Auto 0.4 % 8 Unknown COMPLETE BLOOD COUNT [id number] Neutrophil Abs 6.41 10e9/L Unknown COMPLETE BLOOD COUNT [id number] Lymphocyte Abs 2.93 10e9/L Unknown COMPLETE BLOOD COUNT [id number] Monocyte Abs 0.88 10e9/L 10/2017 Unknown COMPLETE BLOOD COUNT [id number] Eosinophil Abs 0.44 10e9/L Unknown COMPLETE BLOOD COUNT 0785749 RDW-SD 46.2 fL 8 Unknown COMPLETE BLOOD COUNT [id number] Basophil Abs 0.04 10e9/L 10/2017 Unknown THYROID STIMULATING HORMONE 46023 TSH 4.015 uIU/mL 12/10/2017 Unknown COMPREHENSIVE METABOLIC 04519 AST 25 U/L 2017 Unknown COMPREHENSIVE METABOLIC 68685 ALT 17 U/L 2017 Unknown COMPREHENSIVE METABOLIC 43907 BUN 19 mg/dL 2017 Unknown COMPREHENSIVE METABOLIC 86807 ALBUMIN 4.0 g/dL 2017 Unknown COMPREHENSIVE METABOLIC 68234 CHLORIDE 91 mmol/L 2017 Unknown COMPREHENSIVE METABOLIC 41835 Bili Total 0.5 mg/dL 12/10 Unknown COMPREHENSIVE METABOLIC 14798 ALK PHOS 75 U/L 2017 Unknown COMPREHENSIVE METABOLIC 54805 SODIUM 136 mmol/L 12/10 Unknown COMPREHENSIVE METABOLIC 89098 CREATININE 1.05 mg/dL 10/2017 Unknown COMPREHENSIVE METABOLIC 12532 CALCIUM 8.9 mg/dL 2017 Unknown COMPREHENSIVE METABOLIC 74072 POTASSIUM 3.4 mmol/L 12/10 Unknown COMPREHENSIVE METABOLIC 52359 Total Protein 6.5 g/dL Unknown COMPREHENSIVE METABOLIC 65428 Glucose 138 mg/dL 2017 Unknown COMPREHENSIVE METABOLIC 38704 Bicarbonate 35 mmol/L 10/2017 Unknown COMPREHENSIVE METABOLIC 03298 AGAP 10 mmol/L 2017 Unknown ME[facility] GLUC 4089515 Calc Mean Gluc 171 mg/dL 12/10/2017 Unkn own LIPID GROUP 05331 Cholesterol 204 mg/dL 12/10/2017 Unkno wn LIPID GROUP 96019 Triglyceride 411 mg/dL 12/10/2017 Unkn own LIPID GROUP 50965 HDL CHOLESTEROL 50 mg/dL 12/10/2017 U nknown LIPID GROUP 28293 Chol/HDL Ratio 4.08 ratio 12/10/2017 U nknown LIPID GROUP 58440 NON-HDL Chol 154 mg/dL 12/10/2017 Unkn own LIPID GROUP 99665 LDL Cholesterol N/A Trig >400 018 Unknown GLYCOSYLATED HEMOGLOBIN TEST 67632 Hgb A1c 37364-4 7.6 % 0 12/10/2017 Unknown FREE T4 71780 T4 Free 1.40 ng/dL 12/10/2017 Unknown GFR CALC 6245749 GFR Non Afr Amr 55 mL/min 12/10/2017 Unk nown GFR CALC 8081538 GFR Afr Amr >60 mL/min 12/10/2017 Unknow n GFR CALC 0637492 GFR Non Afr Amr 48 mL/min 06/28/2017 Unk nown GFR CALC 4090373 GFR Afr Amr 59 mL/min 06/28/2017 Unknown COMPREHENSIVE METABOLIC 46751 AST 32 U/L 2016 Unknown COMPREHENSIVE METABOLIC 08792 ALT 22 U/L 2016 Unknown COMPREHENSIVE METABOLIC 18274 BUN 23 mg/dL 2016 Unknown COMPREHENSIVE METABOLIC 80605 ALBUMIN 4.7 g/dL 2016 Unknown COMPREHENSIVE METABOLIC 81091 CHLORIDE 89 mmol/L 2016 Unknown COMPREHENSIVE METABOLIC 19040 Bili Total 0.5 mg/dL 06/28 Unknown COMPREHENSIVE METABOLIC 72561 ALK PHOS 90 U/L 2016 Unknown COMPREHENSIVE METABOLIC 05481 SODIUM 135 mmol/L 06/28 Unknown COMPREHENSIVE METABOLIC 20070 CREATININE 1.18 mg/dL 06/10 Unknown COMPREHENSIVE METABOLIC 46035 CALCIUM 9.7 mg/dL 2016 Unknown COMPREHENSIVE METABOLIC 36750 POTASSIUM 3.5 mmol/L 06/28 Unknown COMPREHENSIVE METABOLIC 70644 Total Protein 7.7 g/dL Unknown COMPREHENSIVE METABOLIC 40610 Glucose 129 mg/dL 2016 Unknown COMPREHENSIVE METABOLIC 49361 Bicarbonate 34 mmol/L 06/10 Unknown COMPREHENSIVE METABOLIC 36099 AGAP 12 mmol/L 2016 Unknown LIPID GROUP 05481 HDL TEST 64 MG/DL 08/27/2014 Unknown LIPID GROUP 81367 TRIG 222 MG/DL 08/27/2014 Unknown LIPID GROUP 09993 TEST LDL 209 MG/DL 08/27/2014 Unknown LIPID GROUP 55894 CHOL 317 MG/DL 08/27/2014 Unknown LIPID GROUP 01277 RCHOL/HDL 4.95 RATIO 08/27/2014 Unknow n LIPID GROUP 82758 NON-HDL CH 253 MG/DL 08/27/2014 Unknow n GFR CALC 7910543 GFR AA >60 ML/MIN 08/27/2014 Unknown GFR CALC 3788686 GFR NON-AA >60 ML/MIN 08/27/2014 Unknown COMPLETE BLOOD COUNT [id number] WBC 7.0 10e9/L 08/27/20 14 Unknown COMPLETE BLOOD COUNT [id number] RBC 4.98 10e12/L 2013 Unknown COMPLETE BLOOD COUNT 6591122 HGB 15.6 g/dL 4 Unknown COMPLETE BLOOD COUNT 6839779 HCT DET 46.5 % 4 Unknown COMPLETE BLOOD COUNT 4578915 MCV 93.4 fL 4 Unknown COMPLETE BLOOD COUNT 6895516 MCH 31.3 pg 4 Unknown COMPLETE BLOOD COUNT 6266509 MCHC 33.5 g/dL 4 Unknown COMPLETE BLOOD COUNT [id number] PLT 309 10e9/L 08/27/20 14 Unknown COMPLETE BLOOD COUNT [id number] MPV 9.6 fL 4 Unknown COMPLETE BLOOD COUNT 2474716 CADEN % 57.2 % 4 Unknown COMPLETE BLOOD COUNT 2503735 LY % 33.2 % 4 Unknown COMPLETE BLOOD COUNT 6009639 MON % 7.3 % 4 Unknown COMPLETE BLOOD COUNT 8586093 EOS % 2.0 % 4 Unknown COMPLETE BLOOD COUNT 5159494 BASO % 0.3 % 4 Unknown COMPLETE BLOOD COUNT 0016032 RDW 13.7 % 4 Unknown COMPLETE BLOOD COUNT [id number] ABS CADEN 4.00 10e9/L 014 Unknown COMPLETE BLOOD COUNT 3647143 ABS LYMPH 2.32 10e9/L 014 Unknown COMPLETE BLOOD COUNT [id number] ABS MONO 0.51 10e9/L 014 Unknown COMPLETE BLOOD COUNT [id number] ABS EOS 0.14 10e9/L 014 Unknown COMPLETE BLOOD COUNT [id number] ABS BASO 0.02 10e9/L 014 Unknown COMPLETE BLOOD COUNT 6089969 RDW-SD 45.1 fL 4 Unknown COMPREHENSIVE METABOLIC 54978 AST 13 U/L 2013 Unknown COMPREHENSIVE METABOLIC 22660 ALT 11 IU/L 2013 Unknown COMPREHENSIVE METABOLIC 81093 BUN 23 MG/DL 2013 Unknown COMPREHENSIVE METABOLIC 03676 ALBUMIN 4.4 GM/DL 2013 Unknown COMPREHENSIVE METABOLIC 51835 CHLORIDE 99 MMOL/L 2013 Unknown COMPREHENSIVE METABOLIC 72553 BILI TOT 0.5 MG/DL 2013 Unknown COMPREHENSIVE METABOLIC 37002 ALK PHOS 56 U/L 2013 Unknown COMPREHENSIVE METABOLIC 59063 SODIUM 138 MMOL/L 08/27 Unknown COMPREHENSIVE METABOLIC 75511 CREATININE 0.95 MG/DL 08/10 Unknown COMPREHENSIVE METABOLIC 77778 CALCIUM 9.8 MG/DL 2013 Unknown COMPREHENSIVE METABOLIC 12557 POTASSIUM 3.5 MMOL/L 08/27 Unknown COMPREHENSIVE METABOLIC 02707 PROT TOT 6.8 GM/DL 2013 Unknown COMPREHENSIVE METABOLIC 26181 Glucose 90 MG/DL 2013 Unknown COMPREHENSIVE METABOLIC 51643 BICARB 34 MMOL/L 2013 Unknown COMPREHENSIVE METABOLIC 70459 ANION GAP 5 MEQ/L 2013 Unknown LIPASE 60479 LIPASE 11 IU/L 07/21/2014 Unknown AMYLASE 25538 AMYLASE 39 IU/L 07/21/2014 Unknown HEMOGLOBIN A1C (GLYCOSYLATED) 7478981 A1C HPLC 92527-5 6.2 % 03/05/2013 Unknown THYROID STIMULATING HORMONE 35159 TSH 6.986 uIU/ML 03/05/2013 Unknown COMPLETE BLOOD COUNT 1158456 WBC 12.7 10e9/L 013 Unknown COMPLETE BLOOD COUNT 1995925 RBC 4.53 10e12/L 2012 Unknown COMPLETE BLOOD COUNT 7504918 HGB 14.7 g/dL 3 Unknown COMPLETE BLOOD COUNT 7321206 HCT DET 43.1 % 3 Unknown COMPLETE BLOOD COUNT 9973267 MCV 95.1 fL 3 Unknown COMPLETE BLOOD COUNT 7867075 MCH 32.5 pg 3 Unknown COMPLETE BLOOD COUNT 5174340 MCHC 34.1 g/dL 3 Unknown COMPLETE BLOOD COUNT 6824754 PLT 346 10e9/L 03/05/20 13 Unknown COMPLETE BLOOD COUNT 9746452 MPV 9.5 fL 3 Unknown COMPLETE BLOOD COUNT 2727388 CADEN % 67.6 % 3 Unknown COMPLETE BLOOD COUNT 1313562 LY % 22.1 % 3 Unknown COMPLETE BLOOD COUNT 3308741 MON % 6.6 % 3 Unknown COMPLETE BLOOD COUNT 4753892 EOS % 3.3 % 3 Unknown COMPLETE BLOOD COUNT 7915275 BASO % 0.4 % 3 Unknown COMPLETE BLOOD COUNT 3357153 RDW 14.0 % 3 Unknown COMPLETE BLOOD COUNT [id number] ABS CADEN 8.59 10e9/L 013 Unknown COMPLETE BLOOD COUNT 8537424 ABS LYMPH 2.81 10e9/L 013 Unknown COMPLETE BLOOD COUNT 6637151 ABS MONO 0.84 10e9/L 013 Unknown COMPLETE BLOOD COUNT 2341143 ABS EOS 0.42 10e9/L 013 Unknown COMPLETE BLOOD COUNT 9558493 ABS BASO 0.05 10e9/L 013 Unknown COMPLETE BLOOD COUNT [id number] RDW-SD 46.0 fL 3 Unknown FREE T4 37569 FREE T4 1.14 NG/DL 03/05/2013 Unknown COMPREHENSIVE METABOLIC 90129 AST 17 U/L 2012 Unknown COMPREHENSIVE METABOLIC 05641 ALT 12 IU/L 2012 Unknown COMPREHENSIVE METABOLIC 72987 BUN 24 MG/DL 2012 Unknown COMPREHENSIVE METABOLIC 28326 ALBUMIN 4.2 GM/DL 2012 Unknown COMPREHENSIVE METABOLIC 53198 CHLORIDE 93 MMOL/L 2012 Unknown COMPREHENSIVE METABOLIC 17246 BILI TOT 0.5 MG/DL 2012 Unknown COMPREHENSIVE METABOLIC 61271 ALK PHOS 75 U/L 2012 Unknown COMPREHENSIVE METABOLIC 26140 SODIUM 141 MMOL/L 03/05 Unknown COMPREHENSIVE METABOLIC 90477 CREATININE 1.36 MG/DL 02/09 Unknown COMPREHENSIVE METABOLIC 13662 CALCIUM 9.2 MG/DL 2012 Unknown COMPREHENSIVE METABOLIC 46185 POTASSIUM 3.1 MMOL/L 03/05 Unknown COMPREHENSIVE METABOLIC 38196 PROT TOT 6.9 GM/DL 2012 Unknown COMPREHENSIVE METABOLIC 59352 Glucose 123 MG/DL 2012 Unknown COMPREHENSIVE METABOLIC 82273 BICARB 36 MMOL/L 2012 Unknown COMPREHENSIVE METABOLIC 86693 ANION GAP 12 MEQ/L 2012 Unknown GFR CALC 5238818 GFR AA 51.0L ML/MIN 03/05/2013 Unknow n GFR CALC 5865359 GFR NON-AA 42.0L ML/MIN 03/05/2013 Unkno wn COMPREHENSIVE METABOLIC 88152 AST 14 U/L 2012 Unknown COMPREHENSIVE METABOLIC 37712 ALT 11 IU/L 2012 Unknown COMPREHENSIVE METABOLIC 80003 BUN 16 MG/DL 2012 Unknown COMPREHENSIVE METABOLIC 96516 ALBUMIN 4.2 GM/DL 2012 Unknown COMPREHENSIVE METABOLIC 52853 CHLORIDE 98 MMOL/L 2012 Unknown COMPREHENSIVE METABOLIC 61507 BILI TOT 0.4 MG/DL 2012 Unknown COMPREHENSIVE METABOLIC 31514 ALK PHOS 77 U/L 2012 Unknown COMPREHENSIVE METABOLIC 19977 SODIUM 139 MMOL/L 09/25 Unknown COMPREHENSIVE METABOLIC 41964 CREATININE 0.86 MG/DL 09/10 Unknown COMPREHENSIVE METABOLIC 92747 CALCIUM 9.5 MG/DL 2012 Unknown COMPREHENSIVE METABOLIC 36618 POTASSIUM 3.8 MMOL/L 09/25 Unknown COMPREHENSIVE METABOLIC 59606 PROT TOT 6.8 GM/DL 2012 Unknown COMPREHENSIVE METABOLIC 16892 Glucose 91 MG/DL 2012 Unknown COMPREHENSIVE METABOLIC 56477 BICARB 32 MMOL/L 2012 Unknown COMPREHENSIVE METABOLIC 02700 ANION GAP 9 MEQ/L 2012 Unknown FREE T4 46358 FREE T4 0.98 NG/DL 09/25/2012 Unknown THYROID STIMULATING HORMONE 70247 TSH 1.736 uIU/ML 09/25/2012 Unknown C-REACTIVE PROTEIN (CRP) QUANT 27362 CRP 2.3 MG/DL 09/25/2012 Unknown COMPLETE BLOOD COUNT [id number] WBC 11.9 10e9/L 013 Unknown COMPLETE BLOOD COUNT [id number] RBC 4.87 10e12/L 2012 Unknown COMPLETE BLOOD COUNT [id number] HGB 15.1 g/dL 3 Unknown COMPLETE BLOOD COUNT [id number] HCT DET 44.8 % 3 Unknown COMPLETE BLOOD COUNT [id number] MCV 92.0 fL 3 Unknown COMPLETE BLOOD COUNT [id number] MCH 31.0 pg 3 Unknown COMPLETE BLOOD COUNT [id number] MCHC 33.7 g/dL 3 Unknown COMPLETE BLOOD COUNT [id number] PLT 343 10e9/L 09/25/19 13 Unknown COMPLETE BLOOD COUNT [id number] MPV 9.0 fL 3 Unknown COMPLETE BLOOD COUNT [id number] CADEN % 68.2 % 3 Unknown COMPLETE BLOOD COUNT [id number] LY % 22.4 % 3 Unknown COMPLETE BLOOD COUNT [id number] MON % 6.4 % 3 Unknown COMPLETE BLOOD COUNT [id number] EOS % 2.7 % 3 Unknown COMPLETE BLOOD COUNT [id number] BASO % 0.3 % 3 Unknown COMPLETE BLOOD COUNT [id number] RDW 13.8 % 3 Unknown COMPLETE BLOOD COUNT [id number] ABS CADEN 8.12 10e9/L 013 Unknown COMPLETE BLOOD COUNT [id number] ABS LYMPH 2.67 10e9/L 013 Unknown COMPLETE BLOOD COUNT [id number] ABS MONO 0.76 10e9/L 013 Unknown COMPLETE BLOOD COUNT [id number] ABS EOS 0.32 10e9/L 013 Unknown COMPLETE BLOOD COUNT [id number] ABS BASO 0.04 10e9/L 013 Unknown COMPLETE BLOOD COUNT [id number] RDW-SD 45.6 fL 3 Unknown GFR CALC [id number] GFR AA >60 ML/MIN 09/25/2012 Unknown GFR CALC [id number] GFR NON-AA >60 ML/MIN 09/25/2012 Unknown ERYTHROCYTE SEDIMENTATION RATE 33296 ESR 19 MM/HR 05/06/2012 Unknown VITAMIN B 12 FOLIC ACID [id number]|[id number] VIT B 12 922 PG/ML 04/11 Unknown VITAMIN B 12 FOLIC ACID 84985|[id number] FOLIC ACID 13.6 NG/ML Unknown URIC ACID 11757 URIC ACID 7.8 MG/DL 05/06/2012 Unknown COMPLETE BLOOD COUNT 78737 WBC 11.9 10e9/L 012 Unknown COMPLETE BLOOD COUNT 42680 RBC 5.30 10e12/L 2011 Unknown COMPLETE BLOOD COUNT 36977 HGB 16.6 g/dL 2 Unknown COMPLETE BLOOD COUNT 53443 HCT DET 47.2 % 2 Unknown COMPLETE BLOOD COUNT 49281 MCV 89.1 fL 2 Unknown COMPLETE BLOOD COUNT 68221 MCH 31.3 pg 2 Unknown COMPLETE BLOOD COUNT 17977 MCHC 35.2 g/dL 2 Unknown COMPLETE BLOOD COUNT 50792 PLT 362 10e9/L 05/06/20 12 Unknown COMPLETE BLOOD COUNT 33241 MPV 9.4 fL 2 Unknown COMPLETE BLOOD COUNT 66184 CADEN % 68.2 % 2 Unknown COMPLETE BLOOD COUNT 95344 LY % 22.0 % 2 Unknown COMPLETE BLOOD COUNT 83695 MON % 6.9 % 2 Unknown COMPLETE BLOOD COUNT 65912 EOS % 2.6 % 2 Unknown COMPLETE BLOOD COUNT 40078 BASO % 0.3 % 2 Unknown COMPLETE BLOOD COUNT 34598 RDW 12.8 % 2 Unknown COMPLETE BLOOD COUNT 66354 ABS CADEN 8.12 10e9/L 012 Unknown COMPLETE BLOOD COUNT 20402 ABS LYMPH 2.62 10e9/L 012 Unknown COMPLETE BLOOD COUNT 31691 ABS MONO 0.82 10e9/L 012 Unknown COMPLETE BLOOD COUNT 46252 ABS EOS 0.31 10e9/L 012 Unknown COMPLETE BLOOD COUNT 45624 ABS BASO 0.04 10e9/L 012 Unknown COMPLETE BLOOD COUNT 35766 RDW-SD 41.5 fL 2 Unknown GFR CALC [id number] GFR AA >60 ML/MIN 05/06/2012 Unknown GFR CALC [id number] GFR NON-AA 58.0L ML/MIN 05/06/2012 Unkno wn FREE T4 05546 FREE T4 1.15 NG/DL 05/06/2012 Unknown THYROID STIMULATING HORMONE 65850 TSH 1.568 uIU/ML 05/06/2012 Unknown COMPREHENSIVE METABOLIC 95116 AST 20 U/L 2011 Unknown COMPREHENSIVE METABOLIC 19939 ALT 12 IU/L 2011 Unknown COMPREHENSIVE METABOLIC 85691 BUN 20 MG/DL 2011 Unknown COMPREHENSIVE METABOLIC 92645 ALBUMIN 4.5 GM/DL 2011 Unknown COMPREHENSIVE METABOLIC 83379 CHLORIDE 91 MMOL/L 2011 Unknown COMPREHENSIVE METABOLIC 03215 BILI TOT 0.4 MG/DL 2011 Unknown COMPREHENSIVE METABOLIC 84508 ALK PHOS 73 U/L 2011 Unknown COMPREHENSIVE METABOLIC 93453 SODIUM 139 MMOL/L 05/06 Unknown COMPREHENSIVE METABOLIC 66616 CREATININE 1.02 MG/DL 04/11 Unknown COMPREHENSIVE METABOLIC 91188 CALCIUM 9.7 MG/DL 2011 Unknown COMPREHENSIVE METABOLIC 80671 POTASSIUM 3.1 MMOL/L 05/06 Unknown COMPREHENSIVE METABOLIC 68739 PROT TOT 7.3 GM/DL 2011 Unknown COMPREHENSIVE METABOLIC 32837 Glucose 118 MG/DL 2011 Unknown COMPREHENSIVE METABOLIC 49086 BICARB 33 MMOL/L 2011 Unknown COMPREHENSIVE METABOLIC 09435 ANION GAP 15 MEQ/L 2011 Unknown Procedures Procedure Codes Date COMPREHEN METABOLIC PANEL CPT-4: 56742 02/12/2020 A1C HPLC CPT-4: 94205 02/12/2020 ROUTINE VENIPUNCTURE CPT-4: 90175 09/29/2019 URINALYSIS NONAUTO W/O SCOPE CPT-4: 32969 09/29/2019 COMPREHEN METABOLIC PANEL CPT-4: 70398 09/29/2019 LIPID PANEL CPT-4: 29770 09/29/2019 A1C HPLC CPT-4: 57731 09/29/2019 ASSAY OF FREE THYROXINE CPT-4: 77292 09/29/2019 ASSAY THYROID STIM HORMONE CPT-4: 04275 09/29/2019 COMPLETE CBC W/AUTO DIFF WBC CPT-4: 16823 09/29/2019 URINALYSIS NONAUTO W/O SCOPE CPT-4: 53409 09/30/2018 MICROALBUMIN QUANTITATIVE CPT-4: 03324 09/30/2018 CEFTRIAXONE SODIUM INJECTION CPT-4: J0696 06/19/2018 THER/PROPH/DIAG INJ SC/IM CPT-4: 42151 06/19/2018 CEFTRIAXONE SODIUM INJECTION CPT-4: J0696 06/17/2018 THER/PROPH/DIAG INJ SC/IM CPT-4: 65761 06/17/2018 THER/PROPH/DIAG INJ SC/IM CPT-4: 31911 05/16/2018 KETOROLAC TROMETHAMINE INJ CPT-4: J1885 05/16/2018 ONDANSETRON HCL INJECTION CPT-4: J2405 05/16/2018 THER/PROPH/DIAG INJ SC/IM CPT-4: 21051 05/16/2018 ROUTINE VENIPUNCTURE CPT-4: 90141 03/20/2018 COMPREHEN METABOLIC PANEL CPT-4: 34875 03/20/2018 DEXAMETHASONE SODIUM PHOS CPT-4: J1100 02/11/2018 THER/PROPH/DIAG INJ SC/IM CPT-4: 95601 02/11/2018 TRIAMCINOLONE ACET INJ NOS CPT-4: J3301 02/11/2018 CEFTRIAXONE SODIUM INJECTION CPT-4: J0696 02/01/2018 THER/PROPH/DIAG INJ SC/IM CPT-4: 03246 02/01/2018 CEFTRIAXONE SODIUM INJECTION CPT-4: J0696 01/30/2018 THER/PROPH/DIAG INJ SC/IM CPT-4: 20999 01/30/2018 ROUTINE VENIPUNCTURE CPT-4: 33040 12/10/2017 ASSAY OF FREE THYROXINE CPT-4: 54168 12/10/2017 ASSAY THYROID STIM HORMONE CPT-4: 80410 12/10/2017 COMPREHEN METABOLIC PANEL CPT-4: 99663 12/10/2017 COMPLETE CBC W/AUTO DIFF WBC CPT-4: 64413 12/10/2017 LIPID PANEL CPT-4: 55925 12/10/2017 A1C HPLC CPT-4: 78515 12/10/2017 CEFTRIAXONE SODIUM INJECTION CPT-4: J0696 12/10/2017 THER/PROPH/DIAG INJ SC/IM CPT-4: 90742 12/10/2017 CEFTRIAXONE SODIUM INJECTION CPT-4: J0696 12/07/2017 THER/PROPH/DIAG INJ SC/IM CPT-4: 67148 12/07/2017 DEXAMETHASONE SODIUM PHOS CPT-4: J1100 12/07/2017 THER/PROPH/DIAG INJ SC/IM CPT-4: 48336 12/07/2017 CEFTRIAXONE SODIUM INJECTION CPT-4: J0696 10/08/2017 THER/PROPH/DIAG INJ SC/IM CPT-4: 93970 10/08/2017 CEFTRIAXONE SODIUM INJECTION CPT-4: J0696 09/21/2017 THER/PROPH/DIAG INJ SC/IM CPT-4: 97884 09/21/2017 CEFTRIAXONE SODIUM INJECTION CPT-4: J0696 09/20/2017 THER/PROPH/DIAG INJ SC/IM CPT-4: 67036 09/20/2017 REMOVAL OF NAIL PLATE CPT-4: 07371 08/29/2017 THER/PROPH/DIAG INJ SC/IM CPT-4: 71397 08/29/2017 TRIAMCINOLONE ACET INJ NOS CPT-4: J3301 08/29/2017 CEFTRIAXONE SODIUM INJECTION CPT-4: J0696 08/29/2017 THER/PROPH/DIAG INJ SC/IM CPT-4: 29566 08/29/2017 DESTRUCT PREMALG LESION (Cryosurgery) CPT-4: 25588 ROUTINE VENIPUNCTURE CPT-4: 49308 06/27/2017 ASSAY OF FREE THYROXINE CPT-4: 57519 06/27/2017 ASSAY THYROID STIM HORMONE CPT-4: 82810 06/27/2017 COMPREHEN METABOLIC PANEL CPT-4: 76515 06/27/2017 COMPLETE CBC W/AUTO DIFF WBC CPT-4: 42563 06/27/2017 EXC TR-EXT B9+REECE 0.5 CM< CPT-4: 78727 01/24/2017 THER/PROPH/DIAG INJ SC/IM CPT-4: 64935 08/02/2016 DEXAMETHASONE SODIUM PHOS CPT-4: J1100 08/02/2016 DESTRUCT PREMALG LESION (Cryosurgery) CPT-4: 36584 EXC TR-EXT B9+REECE 0.5 CM< CPT-4: 52528 08/01/2016 AEROBIC WOUND CULTURE & STN CPT-4: 30905 07/06/2016 CEFTRIAXONE SODIUM INJECTION CPT-4: J0696 05/25/2016 THER/PROPH/DIAG INJ SC/IM CPT-4: 14993 05/25/2016 THER/PROPH/DIAG INJ SC/IM CPT-4: 72104 04/26/2016 DEXAMETHASONE SODIUM PHOS CPT-4: J1100 04/26/2016 CEFTRIAXONE SODIUM INJECTION CPT-4: J0696 04/26/2016 THER/PROPH/DIAG INJ SC/IM CPT-4: 79922 04/26/2016 THER/PROPH/DIAG INJ SC/IM CPT-4: 13384 02/09/2016 TRIAMCINOLONE ACET INJ NOS CPT-4: J3301 02/09/2016 URINALYSIS NONAUTO W/O SCOPE CPT-4: 24145 01/24/2016 URINE CULTURE/ COLONY COUNT CPT-4: 91930 01/24/2016 THER/PROPH/DIAG INJ SC/IM CPT-4: 77409 12/08/2015 TRIAMCINOLONE ACET INJ NOS CPT-4: J3301 12/08/2015 THER/PROPH/DIAG INJ SC/IM CPT-4: 66983 10/07/2015 TRIAMCINOLONE ACET INJ NOS CPT-4: J3301 10/07/2015 DESTRUCT PREMALG LESION (Cryosurgery) CPT-4: 26516 THER/PROPH/DIAG INJ SC/IM CPT-4: 79820 03/16/2015 METHYLPREDNISOLONE 40 MG INJ CPT-4: J1030 03/16/2015 DESTRUCT PREMALG LESION (Cryosurgery) CPT-4: 25797 THER/PROPH/DIAG INJ SC/IM CPT-4: 94532 09/11/2014 METHYLPREDNISOLONE 40 MG INJ CPT-4: J1030 09/11/2014 TRIAMCINOLONE ACET INJ NOS CPT-4: J3301 09/11/2014 CEFTRIAXONE SODIUM INJECTION CPT-4: J0696 09/11/2014 THER/PROPH/DIAG INJ SC/IM CPT-4: 02925 09/11/2014 ROUTINE VENIPUNCTURE CPT-4: 84961 08/27/2014 COMPREHEN METABOLIC PANEL CPT-4: 02795 08/27/2014 COMPLETE CBC W/AUTO DIFF WBC CPT-4: 55354 08/27/2014 LIPID PANEL CPT-4: 24538 08/27/2014 ROUTINE VENIPUNCTURE CPT-4: 56752 07/21/2014 ASSAY OF AMYLASE CPT-4: 00311 07/21/2014 ASSAY OF LIPASE CPT-4: 12850 07/21/2014 THER/PROPH/DIAG INJ SC/IM CPT-4: 04847 07/15/2014 TRIAMCINOLONE ACET INJ NOS CPT-4: J3301 07/15/2014 ROUTINE VENIPUNCTURE CPT-4: 40584 05/14/2014 ASSAY OF FREE THYROXINE CPT-4: 78954 05/14/2014 ASSAY THYROID STIM HORMONE CPT-4: 14719 05/14/2014 COMPREHEN METABOLIC PANEL CPT-4: 33867 05/14/2014 COMPLETE CBC W/AUTO DIFF WBC CPT-4: 42526 05/14/2014 LIPID PANEL CPT-4: 55539 05/14/2014 CEFTRIAXONE SODIUM INJECTION CPT-4: J0696 04/21/2014 THER/PROPH/DIAG INJ SC/IM CPT-4: 80911 04/21/2014 THER/PROPH/DIAG INJ SC/IM CPT-4: 02161 04/21/2014 TRIAMCINOLONE ACET INJ NOS CPT-4: J3301 04/21/2014 THER/PROPH/DIAG INJ SC/IM CPT-4: 43408 03/04/2014 METHYLPREDNISOLONE 40 MG INJ CPT-4: J1030 03/04/2014 TRIAMCINOLONE ACET INJ NOS CPT-4: J3301 03/04/2014 CEFTRIAXONE SODIUM INJECTION CPT-4: J0696 03/04/2014 THER/PROPH/DIAG INJ SC/IM CPT-4: 22680 03/04/2014 TDAP VACCINE 7 YRS/> IM CPT-4: 12379 02/27/2014 IMMUNIZATION ADMIN CPT-4: 31923 02/27/2014 DESTRUCT PREMALG LESION (Cryosurgery) CPT-4: 87026 DESTRUCT PREMALG LES 2-14 CPT-4: 91812 01/13/2014 THER/PROPH/DIAG INJ SC/IM CPT-4: 10600 10/21/2013 METHYLPREDNISOLONE 40 MG INJ CPT-4: J1030 10/21/2013 TRIAMCINOLONE ACET INJ NOS CPT-4: J3301 10/21/2013 CEFTRIAXONE SODIUM INJECTION CPT-4: J0696 08/27/2013 THER/PROPH/DIAG INJ SC/IM CPT-4: 27786 08/27/2013 THER/PROPH/DIAG INJ SC/IM CPT-4: 55879 08/27/2013 METHYLPREDNISOLONE 40 MG INJ CPT-4: J1030 08/27/2013 TRIAMCINOLONE ACET INJ NOS CPT-4: J3301 08/27/2013 THER/PROPH/DIAG INJ SC/IM CPT-4: 57259 06/23/2013 METHYLPREDNISOLONE 40 MG INJ CPT-4: J1030 06/23/2013 TRIAMCINOLONE ACET INJ NOS CPT-4: J3301 06/23/2013 THER/PROPH/DIAG INJ SC/IM CPT-4: 62377 05/26/2013 METHYLPREDNISOLONE 40 MG INJ CPT-4: J1030 05/26/2013 TRIAMCINOLONE ACET INJ NOS CPT-4: J3301 05/26/2013 ROUTINE VENIPUNCTURE CPT-4: 67223 03/05/2013 ASSAY OF FREE THYROXINE CPT-4: 94209 03/05/2013 ASSAY THYROID STIM HORMONE CPT-4: 02157 03/05/2013 COMPREHEN METABOLIC PANEL CPT-4: 79229 03/05/2013 COMPLETE CBC W/AUTO DIFF WBC CPT-4: 45336 03/05/2013 A1C GLYCOSYLATED HEMOGLOBIN TEST CPT-4: 78538 013 DRAIN/INJECT JOINT/BURSA CPT-4: 10944 12/04/2012 METHYLPREDNISOLONE 40 MG INJ CPT-4: J1030 12/04/2012 TRIAMCINOLONE ACET INJ NOS CPT-4: J3301 12/04/2012 CEFTRIAXONE SODIUM INJECTION CPT-4: J0696 11/21/2012 THER/PROPH/DIAG INJ SC/IM CPT-4: 18924 11/21/2012 THER/PROPH/DIAG INJ SC/IM CPT-4: 22054 10/14/2012 METHYLPREDNISOLONE 40 MG INJ CPT-4: J1030 10/14/2012 TRIAMCINOLONE ACET INJ NOS CPT-4: J3301 10/14/2012 URINALYSIS NONAUTO W/O SCOPE CPT-4: 18629 09/27/2012 ROUTINE VENIPUNCTURE CPT-4: 31757 09/25/2012 ASSAY OF FREE THYROXINE CPT-4: 57121 09/25/2012 ASSAY THYROID STIM HORMONE CPT-4: 16429 09/25/2012 COMPREHEN METABOLIC PANEL CPT-4: 45881 09/25/2012 COMPLETE CBC W/AUTO DIFF WBC CPT-4: 78553 09/25/2012 C-REACTIVE PROTEIN CPT-4: 59825 09/25/2012 THER/PROPH/DIAG INJ SC/IM CPT-4: 08042 08/29/2012 METHYLPREDNISOLONE 40 MG INJ CPT-4: J1030 08/29/2012 TRIAMCINOLONE ACET INJ NOS CPT-4: J3301 08/29/2012 DESTRUCT PREMALG LESION (Cryosurgery) CPT-4: 03734 THER/PROPH/DIAG INJ SC/IM CPT-4: 90501 05/06/2012 METHYLPREDNISOLONE 40 MG INJ CPT-4: J1030 05/06/2012 TRIAMCINOLONE ACET INJ NOS CPT-4: J3301 05/06/2012 VITAMIN B 12 FOLIC ACID CPT-4: 55433|39817 05/06/2012 RBC SED RATE AUTOMATED CPT-4: 66250 05/06/2012 ROUTINE VENIPUNCTURE CPT-4: 32619 05/06/2012 ASSAY OF FREE THYROXINE CPT-4: 23016 05/06/2012 ASSAY THYROID STIM HORMONE CPT-4: 35082 05/06/2012 COMPREHEN METABOLIC PANEL CPT-4: 46186 05/06/2012 COMPLETE CBC W/AUTO DIFF WBC CPT-4: 85326 05/06/2012 ASSAY OF BLOOD/URIC ACID CPT-4: 55848 05/06/2012 THER/PROPH/DIAG INJ SC/IM CPT-4: 30566 03/19/2012 KETOROLAC TROMETHAMINE INJ CPT-4: J1885 03/19/2012 KETOROLAC TROMETHAMINE INJ CPT-4: J1885 01/30/2012 THER/PROPH/DIAG INJ SC/IM CPT-4: 34589 01/30/2012 PROMETHAZINE HCL INJECTION CPT-4: J2550 01/30/2012 THER/PROPH/DIAG INJ SC/IM CPT-4: 95991 01/24/2012 METHYLPREDNISOLONE 40 MG INJ CPT-4: J1030 01/24/2012 TRIAMCINOLONE ACET INJ NOS CPT-4: J3301 01/24/2012 THER/PROPH/DIAG INJ SC/IM CPT-4: 45696 09/13/2011 KETOROLAC TROMETHAMINE INJ CPT-4: J1885 09/13/2011 THER/PROPH/DIAG INJ SC/IM CPT-4: 71493 09/13/2011 PROMETHAZINE HCL INJECTION CPT-4: J2550 09/13/2011 CEFTRIAXONE SODIUM INJECTION CPT-4: J0696 07/20/2011 THER/PROPH/DIAG INJ SC/IM CPT-4: 69833 07/20/2011 THER/PROPH/DIAG INJ SC/IM CPT-4: 23605 07/20/2011 METHYLPREDNISOLONE INJECTION CPT-4: J2930 07/20/2011 URINALYSIS NONAUTO W/O SCOPE CPT-4: 86802 05/09/2011 CEFTRIAXONE SODIUM INJECTION CPT-4: J0696 05/09/2011 THER/PROPH/DIAG INJ SC/IM CPT-4: 55118 05/09/2011 THER/PROPH/DIAG INJ SC/IM CPT-4: 08788 05/09/2011 PROMETHAZINE HCL INJECTION CPT-4: J2550 05/09/2011 HYDRATION IV INFUSION INIT CPT-4: 40512 05/09/2011 DESTRUCT PREMALG LESION (Cryosurgery) CPT-4: 00200 DESTRUCT PREMALG LES 2-14 CPT-4: 84849 07/19/2010 REMOVAL OF SKIN TAGS <W/15 CPT-4: 71214 05/30/2010 THER/PROPH/DIAG INJ SC/IM CPT-4: 66220 04/05/2010 CEFTRIAXONE SODIUM INJECTION CPT-4: J0696 04/05/2010 TRIAMCINOLONE ACET INJ NOS CPT-4: J3301 04/05/2010 METHYLPREDNISOLONE 40 MG INJ CPT-4: J1030 04/05/2010 THER/PROPH/DIAG INJ SC/IM CPT-4: 80165 04/05/2010 TRIAMCINOLONE ACET INJ NOS CPT-4: J3301 03/09/2010 METHYLPREDNISOLONE 40 MG INJ CPT-4: J1030 03/09/2010 THER/PROPH/DIAG INJ SC/IM CPT-4: 14617 03/09/2010 THER/PROPH/DIAG INJ SC/IM CPT-4: 71030 03/09/2010 CEFTRIAXONE SODIUM INJECTION CPT-4: J0696 03/09/2010 [...] 1: 132/80 Code: 8480-6 BMI: 35.8 Code: 28391-1 Heart Rate 1: 88 bpm Height: 5'4" Respiratory Rate: 20 bpm SpO2: 95% Tempera ture: 36.9 (C) / 98.5 (F) Weight: 210 lbs 05/28/2019 Blood Pressure 1: 126/82 Code: 8480-6 BMI: 35.0 Code: 64562-0 Heart Rate 1: 88 bpm Height: 5'4" [...] 1: 128/90 Code: 8480-6 BMI: 37.2 Code: 10199-5 Heart Rate 1: 84 bpm Height: 5'4" Respiratory Rate: 20 bpm SpO2: 95% Tempera ture: 36.6 (C) / 97.8 (F) Weight: 217 lbs 08/27/2018 Blood Pressure 1: 128/88 Code: 8480-6 BMI: 38.3 Code: 75504-2 Heart Rate 1: 84 bpm Height: 5'4" [...] 1: 119/72 Code: 8480-6 BMI: 37.4 Code: 86633-2 Heart Rate 1: 82 bpm Height: 5'4" Respiratory Rate: 12 bpm SpO2: 94% Tempera ture: 35.2 (C) / 95.4 (F) Weight: 218 lbs 12/18/2017 Blood Pressure 1: 128/86 Code: 8480-6 BMI: 37.8 Code: 86618-5 Heart Rate 1: 84 bpm Height: 5'4" [...] 1: 128/82 Code: 8480-6 BMI: 35.5 Code: 66645-9 Heart Rate 1: 84 bpm Height: 5'4" [...] 1: 128/82 Code: 8480-6 BMI: 30.2 Code: 96553-3 Heart Rate 1: 80 bpm Height: 5'4" [...] 1: 128/86 Code: 8480-6 BMI: 32.8 Code: 85414-0 Heart Rate 1: 66 bpm Height: 5'4" Respiratory Rate: 18 bpm Temperature: 36 .3 (C) / 97.3 (F) Weight: 191 lbs 06/23/2013 Blood Pressure 1: 132/94 Code: 8480-6 BMI: 34.0 Code: 01262-9 Heart Rate 1: 84 bpm Height: 5'4" Respiratory Rate: 20 bpm Temperature: 36 .8 (C) / 98.2 (F) Weight: 198 lbs 05/26/2013 Blood Pressure 1: 114/80 Code: 8480-6 BMI: 35.0 Code: 64887-5 Heart Rate 1: 80 bpm Height: 5'4" Respiratory Rate: 20 bpm Temperature: 36 .4 (C) / 97.6 (F) Weight: 204 lbs 04/16/2013 Blood Pressure 1: 114/82 Code: 8480-6 BMI: 36.7 Code: 55650-6 Heart Rate 1: 84 bpm Height: 5'4" Respiratory Rate: 20 bpm Temperature: 36 .7 (C) / 98.0 (F) Weight: 214 lbs 03/05/2013 Blood Pressure 1: 136/90 Code: 8480-6 BMI: 37.1 Code: 98948-5 Heart Rate 1: 84 bpm Height: 5'4" [...] 1: 168/114 Code: 8480-6 BMI: 36.2 Code: 21253-9 Heart Rate 1: 104 bpm Height: 5'4" Respiratory Rate: 20 bpm Temperature: 36 .8 (C) / 98.2 (F) Weight: 211 lbs 11/22/2012 Blood Pressure 1: 128/90 Code: 8480-6 Heart Rate 1: 88 bpm Respiratory Rate: 20 bpm SpO2: 96% Temperature: 36.8 (C) / 98.2 (F) 11/21/2012 Blood Pressure 1: 146/100 Code: 8480-6 BMI: 35.7 Code: 92433-3 Heart Rate 1: 96 bpm Height: 5'4" [...] 1: 138/100 Code: 8480-6 BMI: 35.7 Code: 66035-3 Heart Rate 1: 96 bpm Height: 5'4" Respiratory Rate: 20 bpm Temperature: 36 .8 (C) / 98.2 (F) Weight: 208 lbs 05/06/2012 Blood Pressure 1: 154/102 Code: 8480-6 BMI: 34.7 Code: 61079-4 Heart Rate 1: 116 bpm Height: 5'4" Respiratory Rate: 20 bpm Temperature: 36 .8 (C) / 98.2 (F) Weight: 202 lbs 04/03/2012 Blood Pressure 1: 134/94 Code: 8480-6 BMI: 34.8 Code: 00529-8 Heart Rate 1: 108 bpm Height: 5'4" Respiratory Rate: 20 bpm Temperature: 36 .8 (C) / 98.2 (F) Weight: 203 lbs 03/19/2012 Blood Pressure 1: 148/106 Code: 8480-6 BMI: 35.0 Code: 20577-1 Heart Rate 1: 100 bpm Height: 5'4" Respiratory Rate: 20 bpm Temperature: 36 .6 (C) / 97.9 (F) Weight: 204 lbs 02/22/2012 Blood Pressure 1: 146/94 Code: 8480-6 He art Rate 1: 88 bpm 02/21/2012 Blood Pressure 1: 172/120 Code: 8480-6 B lood Pressure 2: 152/106 Code: 8480-6 Heart Rate 1: 116 bpm 02/20/2012 Blood Pressure 1: 160/100 Code: 8480-6 BMI: 32.0 Code: 78383-3 Heart Rate 1: 84 bpm Height: 5'7" Temperature: 36.5 (C) / 97.7 (F) Weight: 204 lbs 01/30/2012 Blood Pressure 1: 152/110 Code: 8480-6 BMI: 32.0 Code: 74377-4 Heart Rate 1: 116 bpm Height: 5'7" Respiratory Rate: 20 bpm Temperature: 37 .0 (C) / 98.6 (F) Weight: 204 lbs 01/24/2012 Blood Pressure 1: 146/100 Code: 8480-6 BMI: 32.0 Code: 88287-8 Heart Rate 1: 100 bpm Height: 5'7" Respiratory Rate: 20 bpm Temperature: 36 .7 (C) / 98.0 (F) Weight: 204 lbs 01/10/2012 Blood Pressure 1: 156/94 Code: 8480-6 BMI: 32.6 Code: 10520-0 Heart Rate 1: 72 bpm Height: 5'7" Respiratory Rate: 20 bpm Temperature: 36 .8 (C) / 98.2 (F) Weight: 208 lbs 12/11/2011 Blood Pressure 1: 146/100 Code: 8480-6 Heart Rat e 1: 116 bpm Height: 5'7" Respiratory Rate: 20 bpm Temperature: 36.9 (C) / 98.4 (F) We ight: 11/09/2011 Blood Pressure 1: 148/96 Code: 8480-6 BMI: 32.1 Code: 52330-5 Heart Rate 1: 116 bpm Height: 5'7" Respiratory Rate: 20 bpm Temperature: 36 .7 (C) / 98.0 (F) Weight: 205 lbs 09/13/2011 Blood Pressure 1: 126/88 Code: 8480-6 Heart Rate 1: 88 bpm Height: 5'7" Respiratory Rate: 20 bpm Temperature: 36.9 (C) / 98.4 (F) We ight: 08/31/2011 Blood Pressure 1: 118/82 Code: 8480-6 BMI: 32.0 Code: 46690-5 Heart Rate 1: 80 bpm Height: 5'7" Temperature: 36.4 (C) / 97.6 (F) Weight: 204 lbs 07/06/2011 Blood Pressure 1: 128/86 Code: 8480-6 BMI: 30.9 Code: 28614-2 Heart Rate 1: 92 bpm Height: 5'7" Respiratory Rate: 20 bpm Temperature: 36 .9 (C) / 98.4 (F) Weight: 197 lbs 06/06/2011 Blood Pressure 1: 112/74 Code: 8480-6 BMI: 31.0 Code: 99786-4 Heart Rate 1: 72 bpm Height: 5'7" [...] 1: 128/92 Code: 8480-6 BMI: 33.6 Code: 35525-6 Heart Rate 1: 104 bpm Height: 5'4" [...] woman exam (40-65 years) 10/17/2016 Patient ov [facility] for mamogram---had history of breast biopsy sinus [...] headache 01/30/2012 edema 01/24/2012 Currently just francesco Dexter/HCTZ shoulder pain 01/10/2012 thinks these are cau [...] Check-up Encounters Encounter Performer Location Codes Date () OFFICE/OUTPATIENT VISIT EST Diagnosis: Blister (nonthermal), right foot, initial encounter[ICD10: S90.821A] Diagnosis: Type 2 diabetes mellitus with hyperglycemia[ICD10: E11.65] Diagnosis: Lower extremity edema[ICD10: R60.0] [facility] CPT-4: 24651 02/12/2020 ([id number]) OFFICE/OUTPATIENT VISIT EST Diagnosis: Essential (primary) hypertension[ICD10: I10] Diagnosis: Type 2 diabetes mellitus with hyperglycemia[ICD10: E11.65] Diagnosis: Allergic rhinitis[ICD10: J30.9] María Elena JUARES [facility] CPT-4: 09788 01/13/2020 ([id number]) OFFICE/OUTPATIENT VISIT EST Diagnosis: Type 2 diabetes mellitus with hyperglycemia[ICD10: E11.65] María Elena Hicks [facility] CPT-4: 95076 11/20/2019 ([id number]) OFFICE/OUTPATIENT VISIT EST Diagnosis: Ingrowing nail[ICD10: L60.0] Diagnosis: Type 2 diabetes mellitus with hyperglycemia[ICD10: E11.65] Kathleen Hicks [facility] CPT-4: 72604 10/07/2019 ([id number]) OFFICE/OUTPATIENT VISIT EST Diagnosis: DM w/o complication type II, uncontrolled[ICD10: E11.65] Diagnosis: Hypertriglyceridemia[ICD10: E78.1] Diagnosis: Essential hypertension[ICD10: I10] María Elena JEAN [facility] CPT-4: 45163 09/30/2019 ([id number]) NURSE/OUTPATIENT VISIT EST Diagnosis: Essential (primary) hypertension[ICD10: I10] Diagnosis: Cervicalgia[ICD10: M54.2] Diagnosis: Hyperglycemia, 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: R73.9] Diagnosis: Mixed hyperlipidemia[ICD10: E78.2] María Elena APPIAH [facility] CPT-4: 58815 09/29/2019 ([id number]) OFFICE/OUTPATIENT VISIT EST Diagnosis: Essential (primary) hypertension[ICD10: I10] Diagnosis: Fall from bed, sequela[ICD10: W06.XXXS] María Elena APPIAH [facility] CPT-4: 44096 05/28/2019 ([id number]) NURSE/OUTPATIENT VISIT EST Diagnosis: Essential (primary) hypertension[ICD10: I10] María Elena APPIAH [facility] CPT-4: 48582 05/19/2019 ([id number]) OFFICE/OUTPATIENT VISIT EST Diagnosis: Essential (primary) hypertension[ICD10: I10] Diagnosis: Type 2 diabetes mellitus with hyperglycemia[ICD10: E11.65] Diagnosis: Intervertebral disc disorders with radiculopathy, 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] Diagnosis: Hormone replacement therapy[ICD10: Z79.890] María Elena APPIAH [facility] CPT-4: 40084 01/22/2019 ([id number]) OFFICE/OUTPATIENT VISIT EST Diagnosis: Essential (primary) hypertension[ICD10: I10] Diagnosis: Type 2 diabetes mellitus with hyperglycemia[ICD10: E11.65] María Elena APPIAH [facility] CPT-4: 97074 09/30/2018 ([id number]) OFFICE/OUTPATIENT VISIT EST Diagnosis: Pain in left elbow[ICD10: M25.522] Diagnosis: Acute stress reaction[ICD10: F43.0] Diagnosis: Primary insomnia[ICD10: F51.01] Diagnosis: Abnormal weight gain[ICD10: R63.5] María Elena APPIAH [facility] CPT-4: 67153 08/27/2018 ([id number]) OFFICE/OUTPATIENT VISIT EST Diagnosis: Acute recurrent sinusitis, 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: J01.91] Diagnosis: Follicular disorder, 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: L73.9] Diagnosis: Tinea corporis[ICD10: B35.4] María Elena APPIAH DO [facility] CPT-4: 72953 08/09/2018 ([id number]) OFFICE/OUTPATIENT VISIT EST Diagnosis: Tinea corporis[ICD10: B35.4] Diagnosis: Anxiety disorder, 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: F41.9] Diagnosis: Menopausal and female climacteric states[ICD10: N95.1] María Elena APPIAH DO [facility] CPT-4: 44588 07/22/2018 ([id number]) NURSE/OUTPATIENT VISIT EST Diagnosis: Cellulitis of right toe[ICD10: L03.031] María Elena APPIAH DO [facility] CPT-4: 61631 06/19/2018 ([id number]) OFFICE/OUTPATIENT VISIT EST Diagnosis: Cellulitis of right toe[ICD10: L03.031] Kathleen APPIAH [facility] CPT-4: 75738 06/17/2018 ([id number]) OFFICE/OUTPATIENT VISIT EST Diagnosis: Migraine without aura, intractable, without status migrainosus[ICD10: G43.019] Diagnosis: Zoster without complications[ICD10: B02.9] Kathleen APPIAH DO [facility] CPT-4: 71751 05/16/2018 ([id number]) OFFICE/OUTPATIENT VISIT EST Diagnosis: Cellulitis of right lower limb[ICD10: L03.115] Kathleen APPIAH DO [facility] CPT-4: 15657 03/20/2018 ([id number]) OFFICE/OUTPATIENT VISIT EST Diagnosis: Cellulitis of right lower limb[ICD10: L03.115] Kathleen APPIAH DO [facility] CPT-4: 24914 03/18/2018 ([id number]) OFFICE/OUTPATIENT VISIT EST Diagnosis: Cellulitis of right lower limb[ICD10: L03.115] Kathleen APPIAH DO [facility] CPT-4: 79874 03/15/2018 ([id number]) OFFICE/OUTPATIENT VISIT EST Diagnosis: Acute sinusitis, 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: J01.90] Kathleen APPIAH DO [facility] CPT-4: 93247 02/11/2018 ([id number]) NURSE/OUTPATIENT VISIT EST Diagnosis: Otitis media, unspecified, right ear[ICD10: H66.91] María Elena APPIAH DO [facility] CPT-4: 70920 02/01/2018 ([id number]) OFFICE/OUTPATIENT VISIT EST Diagnosis: Acute suppurative otitis media without spontaneous rupture of ear drum, left ear[ICD10: H66.002] Diagnosis: Abnormal weight gain[ICD10: R63.5] Diagnosis: Intervertebral disc disorders with radiculopathy, 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] Kathleen APPIAH DO [employer] CPT-4: 99 214 01/30/2018 ([id number]) PREV VISIT EST AGE 40-64 Diagnosis: Encounter for general adult medical examination without abnormal findings[ICD10: Z00.00] Diagnosis: Essential (primary) hypertension[ICD10: I10] Diagnosis: Mixed hyperlipidemia[ICD10: E78.2] Diagnosis: Type 2 diabetes mellitus with hyperglycemia[ICD10: E11.65] Diagnosis: 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] María Elena APPIAH [employer] CPT-4: 59627 12/18/2017 ([id number]) OFFICE/OUTPATIENT VISIT EST Diagnosis: Cellulitis of right toe[ICD10: L03.031] Diagnosis: Mixed hyperlipidemia[ICD10: E78.2] Diagnosis: Essential (primary) hypertension[ICD10: I10] Diagnosis: Hyperglycemia, 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: R73.9] Diagnosis: Nontoxic goiter, 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] María Elena APPIAH [facility] CPT-4: 21179 12/10/2017 ([id number]) OFFICE/OUTPATIENT VISIT EST Diagnosis: Cellulitis of right toe[ICD10: L03.031] Diagnosis: Acute sinusitis, 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: J01.90] Kathleen APPIAH DO [facility] CPT-4: 63040 12/07/2017 OFFICE/OUTPATIENT VISIT EST Diagnosis: Acute maxillary sinusitis, 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: J01.00] Kathleen APPIAH DO [facility] CPT-4: 57926 10/08/2017 ([id number]) OFFICE/OUTPATIENT VISIT EST Diagnosis: Cellulitis of left toe[ICD10: L03.032] María Elena APPIAH DO [facility] CPT-4: 75864 09/21/2017 ([id number]) OFFICE/OUTPATIENT VISIT EST Diagnosis: Insomnia, 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: G47.00] Diagnosis: Major depressive disorder, single episode, 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: F32.9] Diagnosis: Anxiety disorder, 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: F41.9] Diagnosis: Cellulitis of left toe[ICD10: L03.032] Diagnosis: Snoring[ICD10: R06.83] Kathleen APPIAH DO [facility] CPT-4: 56995 09/20/2017 ([id number]) OFFICE/OUTPATIENT VISIT EST Diagnosis: Cellulitis of left toe[ICD10: L03.032] María Elena APPIAH [facility] CPT-4: 26154 07/19/2017 OFFICE/OUTPATIENT VISIT EST Diagnosis: Chronic sinusitis, 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: J32.9] Diagnosis: Generalized hyperhidrosis[ICD10: R61] Kathleen APPIAH DO [facility] CPT-4: 59725 06/27/2017 ([id number]) OFFICE/OUTPATIENT VISIT EST Diagnosis: Intervertebral disc disorders with radiculopathy, 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] Diagnosis: Primary insomnia[ICD10: F51.01] Diagnosis: Other fatigue[ICD10: R53.83] María Elena APPIAH DO [facility] CPT-4: 98763 04/10/2017 ([id number]) OFFICE/OUTPATIENT VISIT EST Diagnosis: Primary insomnia[ICD10: F51.01] Diagnosis: Localized edema[ICD10: R60.0] Diagnosis: 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] María Elena APPIAH DO [employer] [facility] CPT-4: 54208 12/13/2016 ([id number]) OFFICE/OUTPATIENT VISIT EST Diagnosis: Primary insomnia[ICD10: F51.01] Diagnosis: Cyanosis[ICD10: R23.0] María Elena Bazzi DO [employer] [facility] CPT-4: 68288 11/01/2016 ([id number]) PREV VISIT EST AGE 40-64 Diagnosis: Encounter for gynecological examination (general) (routine) without abnormal findings[ICD10: Z01.419] Diagnosis: Encounter for routine child health examination without abnormal findings[ICD10: Z00.129] María Elena APPIAH DO [employer] [facility] CPT-4: 67488 10/17/2016 ([id number]) OFFICE/OUTPATIENT VISIT EST Diagnosis: Other seasonal allergic rhinitis[ICD10: J30.2] María Elena APPIAH [employer] CPT-4: 06854 10/10/2016 ([id number]) OFFICE/OUTPATIENT VISIT EST Diagnosis: Pain in left arm[ICD10: M79.602] Diagnosis: Contact with and (suspected) exposure to potentially hazardous body fluids[ICD10: Z77.21] Diagnosis: 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, 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] Diagnosis: Unspecified open wound, right foot, sequela[ICD10: S91.301S] María Elena APPIAH [employer] CPT-4: 12124 09/19/2016 ([id number]) OFFICE/OUTPATIENT VISIT EST Diagnosis: Chronic sinusitis, 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: J32.9] Diagnosis: Allergic rhinitis due to pollen[ICD10: J30.1] María Elena APPIAH [employer] CPT-4: 72235 08/24/2016 ([id number]) OFFICE/OUTPATIENT VISIT EST Diagnosis: Acute bronchitis, 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: J20.9] María Elena APPIAH DO [employer] CPT-4: 31127 08/16/2016 ([id number]) OFFICE/OUTPATIENT VISIT EST Diagnosis: Otitis media, unspecified, right ear[ICD10: H66.91] Diagnosis: Acute bronchitis, 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: J20.9] María Elena APPIAH DO [facility] CPT-4: 88793 08/10/2016 ([id number]) OFFICE/OUTPATIENT VISIT EST Diagnosis: Acute recurrent sinusitis, 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: J01.91] Diagnosis: Allergic rhinitis due to pollen[ICD10: J30.1] María Elena APPIAH DO [facility] CPT-4: 31467 08/02/2016 ([id number]) OFFICE/OUTPATIENT VISIT EST Diagnosis: Pain in unspecified joint[ICD10: M25.50] María Elena APPIAH DO [facility] CPT-4: 66230 07/27/2016 OFFICE/OUTPATIENT VISIT EST Diagnosis: 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] Diagnosis: Acute recurrent sinusitis, 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: J01.91] Diagnosis: Other fatigue[ICD10: R53.83] Diagnosis: Primary insomnia[ICD10: F51.01] Diagnosis: Pain in unspecified joint[ICD10: M25.50] María Elena APPIAH DO [facility] CPT-4: 59807 07/20/2016 ([id number]) OFFICE/OUTPATIENT VISIT EST Diagnosis: Blister (nonthermal), left great toe, initial encounter[ICD10: S90.422A] Loan Gonzalo APPIAH DO [facility] CPT-4: 26282 ([id number]) OFFICE/OUTPATIENT VISIT EST Diagnosis: Acute recurrent sinusitis, 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: J01.91] María Elena APPIAH DO [facility] CPT-4: 07343 05/25/2016 ([id number]) OFFICE/OUTPATIENT VISIT EST Diagnosis: Acute sinusitis, 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: J01.90] María Elena APPIAH DO [facility] CPT-4: 60343 04/26/2016 ([id number]) OFFICE/OUTPATIENT VISIT EST Diagnosis: Flushing[ICD10: R23.2] Diagnosis: Primary insomnia[ICD10: F51.01] María Elena APPIAH DO [facility] CPT-4: 32257 03/02/2016 ([id number]) OFFICE/OUTPATIENT VISIT EST Diagnosis: Other seasonal allergic rhinitis[ICD10: J30.2] Loan APPIAH DO [facility] CPT-4: 79522 02/09/2016 ([id number]) OFFICE/OUTPATIENT VISIT EST Diagnosis: Primary insomnia[ICD10: F51.01] Diagnosis: Urinary tract infection, site not specified[ICD10: N39.0] María Elena APPIAH DO [facility] CPT-4: 59355 01/24/2016 ([id number]) OFFICE/OUTPATIENT VISIT EST Diagnosis: Other specified disorders of Eustachian tube, bilateral[ICD10: H69.83] Diagnosis: Allergic rhinitis, 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: J30.9] Loan APPIAH [facility] CPT-4: 98355 12/23/2015 ([id number]) OFFICE/OUTPATIENT VISIT EST Diagnosis: Acute recurrent sinusitis, 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: J01.91] Diagnosis: 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] Diagnosis: Allergic rhinitis, 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: J30.9] María Elena APPIAH [facility] CPT-4: 55408 12/08/2015 ([id number]) OFFICE/OUTPATIENT VISIT EST Diagnosis: Allergic rhinitis, 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: J30.9] Diagnosis: Pain in unspecified joint[ICD10: M25.50] María Elena APPIAH [facility] CPT-4: 65563 10/07/2015 ([id number]) OFFICE/OUTPATIENT VISIT EST Diagnosis: Essential (primary) hypertension[ICD10: I10] María Elena APPIAH [facility] CPT-4: 21942 10/06/2015 OFFICE/OUTPATIENT VISIT EST Diagnosis: Localized enlarged lymph nodes[ICD10: R59.0] Diagnosis: Local infection of the skin and subcutaneous tissue, 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: L08.9] June Flores MARÍA ELENA APPIAH [facility] CPT- 4: 78567 09/14/2015 ([id number]) OFFICE/OUTPATIENT VISIT EST Diagnosis: Essential (primary) hypertension[ICD10: I10] Diagnosis: Actinic keratosis[ICD10: L57.0] María Elena APPIAH DO [facility] CPT-4: 16045 09/07/2015 ([id number]) OFFICE/OUTPATIENT VISIT EST Diagnosis: Essential (primary) hypertension[ICD10: I10] Diagnosis: Acute stress reaction[ICD10: F43.0] María Elena APPIAH DO [facility] CPT-4: 33270 08/18/2015 ([id number]) OFFICE/OUTPATIENT VISIT EST Diagnosis: Essential (primary) hypertension[ICD10: I10] María Elena APPIAH DO [facility] CPT-4: 71135 07/07/2015 ([id number]) OFFICE/OUTPATIENT VISIT EST Diagnosis: Essential (primary) hypertension[ICD10: I10] María Elena APPIAH DO [facility] CPT-4: 10987 06/24/2015 ([id number]) OFFICE/OUTPATIENT VISIT EST Diagnosis: Essential (primary) hypertension[ICD10: I10] María Elena APPIAH DO [facility] CPT-4: 94564 06/21/2015 ([id number]) OFFICE/OUTPATIENT VISIT EST Diagnosis: Essential (primary) hypertension[ICD10: I10] Diagnosis: Mixed hyperlipidemia[ICD10: E78.2] Diagnosis: Acute stress reaction[ICD10: F43.0] Diagnosis: Primary insomnia[ICD10: F51.01] María Elena APPIAH DO [facility] CPT-4: 36305 06/16/2015 ([id number]) OFFICE/OUTPATIENT VISIT EST Diagnosis: INSOMNIA NOS[ICD9: 780.52] Diagnosis: HYPERTENSION[ICD9: 401.9] Diagnosis: Stress reaction[ICD9: 308.9] María Elena APPIAH DO [facility] CPT-4: 03866 06/02/2015 ([id number]) OFFICE/OUTPATIENT VISIT EST Diagnosis: HYPERTENSION[ICD9: 401.9] Diagnosis: Stress reaction[ICD9: 308.9] María Elena APPIAH DO [facility] CPT-4: 05267 05/20/2015 ([id number]) OFFICE/OUTPATIENT VISIT EST Diagnosis: Skin lesion[ICD9: 709.9] 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] María Elena APPIAH DO [facility] CPT-4: 58778 05/10/2015 ([id number]) OFFICE/OUTPATIENT VISIT EST Diagnosis: SINUSITIS, ACUTE[ICD9: 461.9] Diagnosis: ALLERGIC RHINITIS[ICD9: 477.9] Diagnosis: DERMATITIS NOS[ICD9: 692.9] María Elena REHMAN [facility] CPT-4: 04397 03/16/2015 OFFICE/OUTPATIENT VISIT EST Diagnosis: Otitis media[ICD9: 382.9] Diagnosis: SINUSITIS, ACUTE[ICD9: 461.9] June Flores MARÍA ELENA APPIAH [facility] CPT-4: 37893 09/11/2014 ([id number]) OFFICE/OUTPATIENT VISIT EST Diagnosis: HYPERLIPIDEMIA NEC/NOS[ICD9: 272.4] María Elena APPAIH [facility] CPT-4: 18423 08/31/2014 ([id number]) OFFICE/OUTPATIENT VISIT EST Diagnosis: - I - HYPERTENSION[ICD9: 401.9] Diagnosis: HYPERLIPIDEMIA NEC/NOS[ICD9: 272.4] María Elena APPIAH [facility] CPT-4: 61854 08/27/2014 ([id number]) OFFICE/OUTPATIENT VISIT EST Diagnosis: ABDOMINAL PAIN[ICD9: 789.00] Diagnosis: DYSPEPSIA[ICD9: 536.8] Diagnosis: Thoracic back pain[ICD9: 724.1] María Elena APPIAH [facility] CPT-4: 37357 07/21/2014 ([id number]) OFFICE/OUTPATIENT VISIT EST Diagnosis: ALLERGIC RHINITIS[ICD9: 477.9] María Elena APPIAH DO [facility] CPT-4: 73153 07/15/2014 ([id number]) OFFICE/OUTPATIENT VISIT EST Diagnosis: EDEMA[ICD9: 782.3] Diagnosis: Chronic insomnia[ICD9: 780.52] María Elena APPIAH [facility] CPT-4: 03733 05/18/2014 ([id number]) OFFICE/OUTPATIENT VISIT EST Diagnosis: Thyromegaly[ICD9: 240.9] Diagnosis: - I - HYPERTENSION[ICD9: 401.9] Diagnosis: ROUTINE MEDICAL EXAM[ICD9: V70.0] Diagnosis: EDEMA[ICD9: 782.3] María Elena APPIAH [facility] CPT-4: 62824 05/14/2014 OFFICE/OUTPATIENT VISIT EST Diagnosis: BRONCHITIS, ACUTE[ICD9: 466.0] Diagnosis: SINUSITIS, ACUTE[ICD9: 461.9] [facility] 19220 04/21/2014 OFFICE/OUTPATIENT VISIT EST Diagnosis: SINUSITIS, ACUTE[ICD9: 461.9] June Flores [facility]NA [facility]: 53869 03/04/2014 ([id number]) OFFICE/OUTPATIENT VISIT EST Diagnosis: VACCINE FOR TDAP[ICD10: Z23] [facility]ía [facility]: 31996 02/27/2014 ([id number]) OFFICE/OUTPATIENT VISIT EST Diagnosis: Seborrheic keratoses, inflamed[ICD9: 702.11] Diagnosis: ACTINIC KERATOSIS[ICD9: 702.0] Diagnosis: INSOMNIA NOS[ICD9: 780.52] [facility]: 70880 01/13/2014 OFFICE/OUTPATIENT VISIT EST 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] Diagnosis: ALLERGIC RHINITIS[ICD9: 477.9] Diagnosis: Serous otitis media[ICD9: 381.4] María Elena APPIAH [facility] CPT-4: 66708 12/24/2013 ([id number]) OFFICE/OUTPATIENT VISIT EST Diagnosis: SINUSITIS, ACUTE[ICD9: 461.9] Diagnosis: ALLERGIC RHINITIS[ICD9: 477.9] 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] María Elena APPIAH [facility] CPT-4: 02058 11/12/2013 ([id number]) OFFICE/OUTPATIENT VISIT EST Diagnosis: ALLERGIC RHINITIS[ICD9: 477.9] Diagnosis: SINUSITIS, ACUTE[ICD9: 461.9] María Elena APPIAH [facility] CPT-4: 83773 10/21/2013 ([id number]) OFFICE/OUTPATIENT VISIT EST Diagnosis: ASYMPTOMATIC VARICOSE VEINS[ICD9: 454.9] Diagnosis: INSOMNIA NOS[ICD9: 780.52] María Elena PANDYA [facility] CPT-4: 47127 09/22/2013 OFFICE/OUTPATIENT VISIT EST Diagnosis: SINUSITIS, ACUTE[ICD9: 461.9] June VelozAlbertadaniella APPIAH [facility] CPT-4: 63378 08/27/2013 ([id number]) OFFICE/OUTPATIENT VISIT EST Diagnosis: CEPHALGIA[ICD9: 784.0] Diagnosis: CEPHALGIA, TENSION[ICD9: 307.81] 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] María Elena APPIAH [facility] CPT-4: 35911 08/04/2013 ([id number]) OFFICE/OUTPATIENT VISIT EST Diagnosis: Cervicalgia[ICD9: 723.1] Diagnosis: SPASM OF MUSCLE[ICD9: 728.85] Diagnosis: CEPHALGIA, TENSION[ICD9: 307.81] María Elena APPIAH [facility] CPT-4: 65220 07/23/2013 ([id number]) OFFICE/OUTPATIENT VISIT EST 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] Diagnosis: ALLERGIC RHINITIS[ICD9: 477.9] María Elena APPIAH [facility] CPT-4: 44876 06/23/2013 ([id number]) OFFICE/OUTPATIENT VISIT EST Diagnosis: ALLERGIC RHINITIS[ICD9: 477.9] Diagnosis: ACUTE SEROUS OTITIS MEDIA[ICD9: 381.01] 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] María Elena JUARES Fabiola APPIAH [facility] CPT-4: 93189 05/26/2013 ([id number]) OFFICE/OUTPATIENT VISIT EST Diagnosis: HYPERTENSION[ICD9: 401.9] Diagnosis: EDEMA[ICD9: 782.3] Diagnosis: Serous otitis media[ICD9: 381.4] María Elena Seamusdawn JUARES Fabiola APPIAH [facility] CPT-4: 12676 04/16/2013 ([id number]) OFFICE/OUTPATIENT VISIT EST Diagnosis: SINUSITIS, ACUTE[ICD9: 461.9] Diagnosis: ALLERGIC RHINITIS[ICD9: 477.9] Diagnosis: EDEMA[ICD9: 782.3] Diagnosis: Thyromegaly[ICD9: 240.9] Diagnosis: MALAISE AND FATIGUE[ICD9: 780.79] María Elena Lopez Fabiola [facility] C[facility]: 80090 03/05/2013 ([id number]) OFFICE/OUTPATIENT VISIT EST Diagnosis: PAIN, LOWER BACK[ICD9: 724.2] Diagnosis: SPASM OF MUSCLE[ICD9: 728.85] María Elena JUARES Fab[facility]ola [facility]: 14900 12/23/2012 OFFICE/OUTPATIENT VISIT EST Diagnosis: Low back pain[ICD9: 724.2] Lashawn JUARES Fabiola [facility] CPT-4: 72072 12/16/2012 ([id number]) OFFICE/OUTPATIENT VISIT EST Diagnosis: PAIN, LOWER BACK[ICD9: 724.2] Diagnosis: SCIATICA[ICD9: 724.3] Diagnosis: Lumbar herniated disc[ICD9: 722.10] María Elena COLON Fabiola [facility] CPT[facility]: 21313 12/09/2012 ([id number]) OFFICE/OUTPATIENT VISIT EST Diagnosis: PAIN, LOWER BACK[ICD9: 724.2] Diagnosis: SCIATICA[ICD9: 724.3] Diagnosis: LUMBAR DISC DISPLACEMENT[ICD9: 722.10] María Elena MARIN SJj [facility] CPT[facility]: 54691 12/04/2012 OFFICE/OUTPATIENT VISIT EST Diagnosis: Pneumonia[ICD9: 486] Mary Tillman MARÍA ELENA APPIAH DO [facility] CPT-4: 01846 11/22/2012 ([id number]) OFFICE/OUTPATIENT VISIT EST Diagnosis: PNEUMONIA, ORGANISM[ICD9: 486] Diagnosis: Exacerbation of RAD (reactive airway disease)[ICD9: 493.92] María Elena APPIAH DO [facility] CPT-4: 46809 11/21/2012 OFFICE/OUTPATIENT VISIT EST Diagnosis: HYPERTENSION[ICD9: 401.9] Diagnosis: Cephalgia[ICD9: 784.0] Lashawn Babar MARÍA ELENA APPAIH DO [facility] CPT-4: 87872 10/29/2012 ([id number]) OFFICE/OUTPATIENT VISIT EST Diagnosis: MALAISE AND FATIGUE[ICD9: 780.79] Diagnosis: ARTHRALGIA-MULTIPLE SITES[ICD9: 719.49] María Elenamarcella Appiah KYLAH BRAUNGAEL Fabiola APPIAH DO [facility] CPT-4: 87008 10/14/2012 ([id number]) OFFICE/OUTPATIENT VISIT EST Diagnosis: URINARY FREQUENCY[ICD9: 788.41] María Elena Ortamaryjane MARÍA ELENA APPIAH DO [facility] CPT-4: 46487 09/27/2012 ([id number]) OFFICE/OUTPATIENT VISIT EST Diagnosis: MALAISE AND FATIGUE[ICD9: 780.79] Diagnosis: ARTHRALGIA-MULTIPLE SITES[ICD9: 719.49] María Elena Seamusmindimaryjane APPIAH DO [facility] CPT-4: 21961 09/25/2012 ([id number]) OFFICE/OUTPATIENT VISIT EST Diagnosis: SINUSITIS, ACUTE[ICD9: 461.9] 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] María Elenagael Appiah MARÍA ELENA APPIAH DO [facility] CPT-4: 45138 08/29/2012 OFFICE/OUTPATIENT VISIT EST Diagnosis: ACTINIC KERATOSIS[ICD9: 702.0] Diagnosis: Inflamed seborrheic keratosis[ICD9: 702.11] Diagnosis: Skin cancer of face[ICD9: 173.31] Diagnosis: HYPERTENSION[ICD9: 401.9] María Elena JUARES AlanJj [facility] CPT-4: 98948 08/12/2012 ([id number]) OFFICE/OUTPATIENT VISIT EST Diagnosis: ARTHRALGIA-MULTIPLE SITES[ICD9: 719.49] Diagnosis: GOUT[ICD9: 274.9] Diagnosis: HYPERTENSION[ICD9: 401.9] Diagnosis: Tachycardia[ICD9: 785.0] María Elena Hicks FRITZ KARLOS [facility] CPT-4: 33897 05/06/2012 ([id number]) OFFICE/OUTPATIENT VISIT EST Diagnosis: INSOMNIA NOS[ICD9: 780.52] María Elena Hicks [facility] 37173 04/03/2012 ([id number]) OFFICE/OUTPATIENT VISIT EST Diagnosis: INSOMNIA NOS[ICD9: 780.52] Diagnosis: HYPERTENSION[ICD9: 401.9] Diagnosis: MIGRAINE NOS/NOT INTRCBL[ICD9: 346.90] María Elena MARIN SJj [facility] CPT-4: 22216 03/19/2012 ([id number]) OFFICE/OUTPATIENT VISIT EST Diagnosis: CELLULITIS[ICD9: 682.9] Diagnosis: Ankle pain[ICD9: 719.47] Diagnosis: HYPERTENSION[ICD9: 401.9] María Elena Hicks [facility] CPT-4: 84464 02/20/2012 ([id number]) OFFICE/OUTPATIENT VISIT EST Diagnosis: MIGRAINE NOS/NOT INTRCBL[ICD9: 346.90] Diagnosis: Vomiting[ICD9: 787.03] María Elena Hicks [facility] CPT-4: 01064 01/30/2012 ([id number]) OFFICE/OUTPATIENT VISIT EST Diagnosis: EDEMA[ICD9: 782.3] Diagnosis: HYPERTENSION[ICD9: 401.9] Diagnosis: ALLERGIC RHINITIS[ICD9: 477.9] Diagnosis: ARTHRALGIA-MULTIPLE SITES[ICD9: 719.49] María Elena [facility]: 30512 01/24/2012 ([id number]) OFFICE/OUTPATIENT VISIT EST Diagnosis: SPASM OF MUSCLE[ICD9: 728.85] Diagnosis: Thoracic back pain[ICD9: 724.1] Diagnosis: Cervical pain[ICD9: 723.1] [facility]ía [facility]arcella [facility]: 84899 01/10/2012 OFFICE/OUTPATIENT VISIT EST Diagnosis: PAIN, LOWER BACK[ICD9: 724.2] Diagnosis: LUMBAR DISC DISPLACEMENT[ICD9: 722.10] María Elena Td APPIAH [facility] CPT-4: 75142 12/11/2011 OFFICE/OUTPATIENT VISIT EST Diagnosis: MIGRAINE NOS/NOT INTRCBL[ICD9: 346.90] Diagnosis: SINUSITIS, ACUTE[ICD9: 461.9] María Elena APPIAH [facility] CPT-4: 46810 11/09/2011 OFFICE/OUTPATIENT VISIT EST Diagnosis: MIGRAINE NOS/NOT INTRCBL[ICD9: 346.90] Diagnosis: LYMPHADENOPATHY[ICD9: 785.6] María Elena [facility]: 13159 09/13/2011 OFFICE/OUTPATIENT VISIT EST Diagnosis: MALAISE AND FATIGUE[ICD9: 780.79] Diagnosis: ARTHRALGIA-MULTIPLE SITES[ICD9: 719.49] María Elena BRAUNGAEL Fabiola [facility] CPT-4: 61636 08/31/2011 OFFICE/OUTPATIENT VISIT EST Diagnosis: SINUSITIS, ACUTE[ICD9: 461.9] María Elena APPIAH [facility] CPT-4: 07767 07/20/2011 OFFICE/OUTPATIENT VISIT EST Diagnosis: HYPERTENSION[ICD9: 401.9] Diagnosis: PAIN, LOWER BACK[ICD9: 724.2] Diagnosis: SPASM OF MUSCLE[ICD9: 728.85] María Elena APPIAH [facility] CPT-4: 75902 07/06/2011 OFFICE/OUTPATIENT VISIT EST Diagnosis: MIGRAINE NOS/NOT INTRCBL[ICD9: 346.90] Diagnosis: HYPERTENSION[ICD9: 401.9] María Elena Seamusdawn MONTEROMARÍA ELENA AlanJj [facility] CPT-4: 73505 05/22/2011 OFFICE/OUTPATIENT VISIT EST Diagnosis: SINUSITIS, ACUTE[ICD9: 461.9] Diagnosis: MIGRAINE NOS/NOT INTRCBL[ICD9: 346.90] Diagnosis: Dehydration[ICD9: 276.51] Diagnosis: Vomiting[ICD9: 787.03] María Elena [facility] CPT-4: 75218 05/09/2011 ([id number]) OFFICE/OUTPATIENT VISIT EST María Elena ISAAC [facility] CPT-4: 56293 02/14/2011 ([id number]) OFFICE/OUTPATIENT VISIT EST María Elena ISAAC [facility] CPT-4: 10575 02/03/2011 ([id number]) OFFICE/OUTPATIENT VISIT EST María Elena ISAAC [facility] CPT-4: 94398 01/31/2011 ([id number]) OFFICE/OUTPATIENT VISIT EST María Elena ISAAC [facility] CPT-4: 61346 01/25/2011 ([id number]) OFFICE/OUTPATIENT VISIT EST María Elena ISAAC [facility] CPT-4: 31350 01/18/2011 ([id number]) OFFICE/OUTPATIENT VISIT EST María Elena ISAAC [facility] CPT-4: 03382 11/29/2010 ([id number]) OFFICE/OUTPATIENT VISIT, EST María Elena BRAUNLINE [facility] CPT-4: 51923 10/10/2010 ([id number]) OFFICE/OUTPATIENT VISIT, EST María Elena Td [facility]O [facility] CPT-4: 27185 06/07/2010 ([id number]) OFFICE/OUTPATIENT VISIT, EST María Elena Td [facility] CPT-4: 41559 04/27/2010 ([id number]) OFFICE/OUTPATIENT VISIT, EST María Elena Seamusmindimaryjane KYLAH [facility] CPT-4: 18677 04/05/2010 ([id number]) OFFICE/OUTPATIENT VISIT, EST María Elena Seamusmindimaryjane KYLAH [facility] CPT-4: 24503 03/09/2010 ([id number]) OFFICE/OUTPATIENT VISIT, EST María Elena APPIAH DO [facility] CPT-4: 96257 03/03/2010 ([id number]) OFFICE/OUTPATIENT VISIT, SLADE APPIAH DO [facility] CPT-4: 35397 01/17/2010 ([id number]) PREV VISIT, EST, AGE 40-64 María Elena APPIAH DO [facility] CPT-4: 89345 12/27/2009 Plan of Care Planned Activity Notes [...] ICD-10 : S90.821A 02/12/2020 Appointment: Kathleen Zuniga [address] [place], [place] [id number] 02/12/2020 Visit Diagnosis Plan: Essential [...] E11.65 01/13/2020 Appointment: María Elena Appiah [facility] [phone] [id number] [place] [facility] 01/13/2020 Patient Education: lisinopril- [employer] [id number] Completed 01/13/2020 Patient Education: glimepiride- [employer] [id number] Completed 01/13/2020 Appointment: María Elena Appiah [facility]el[facility] [phone] [id number] [place] CANCELED 11/26/2019 Visit Diagnosis Plan: Type 2 diabetes mellitus with hy perglycemia Discussion: Januvia 100mg daily Glimepride 2mg po BID Accuchecks BID Call in 2 weeks with BS readings Get formulary book ICD-9 : 250.02 ICD-10 : E11.65 11/20/2019 Appointment: María Elena Appiah [facility]Ptel[facility] [phone] [id number] [place] [place] 11/20/2019 Patient Education: glimepiride- [employer] [id number] Completed 11/20/2019 Patient Education: Januvia- [employer]on [id number] Completed 11/20/2019 Visit Diagnosis Plan: Ingrowing nail [...] ICD-10 : E11.65 10/07/2019 Appointment: Kathleen Zuniga [id number] OFFICE SURGERY 10/07/2019 Visit Diagnosis Plan: Hypertriglyceridemia [...] E11.65 09/30/2019 Appointment: María Elena Appiah WPtel: [address] [place], [place] [phone] [place] CHECK UP 09/30/2019 Patient Education: Premarin- [employer]on [id number] https://www.[employer]com/samplemd/resources/getResource/61/60959q73-x490-6uxv-a2 Completed 09/30/2019 Appointment: María Elena Appiah WPtel: [address] [place], [place] [phone] [place] LAB 09/29/2019 Appointment: María Elena Appiah WPtel: [address] [place], [place] [phone] [place] Won't have the new insurance till [...] [id number].XXXS 05/28/2019 Appointment: María Elena Appiah WPtel: [address] [place], [place] [phone] [place] FOLLOW UP 05/28/2019 Appointment: María Elena Appiah WPtel: [address] [place], [place] [phone] [place] BP CHECK 05/19/2019 Visit Diagnosis Plan: [...] ICD-10 : Z79.890 01/22/2019 Appointment: María Elena Appiahtel: [address] [place], [place] [phone] [place] FOLLOW UP 01/22/2019 Patient Education: estradiol- [employer] C[employer]on [id number] https://www.[employer]/samplemd/resources/getResource/61/876l147e-6lg7-6w02-7z Completed 01/22/2019 Appointment: María Elena Appiahtel: [address] [place], [place] [id number] [place] CANCELED 01/20/2019 Appointment: María Elena Appiah WPtel: [address] [place] [address] [place] LM NO SHOW 01/06/2019 Appointment: María Elena Appiah WPtel: [address] [place] [address] [place] CANCELED 10/17/2018 Appointment: María Elena Appiah WPtel: [address] [place] [address] [place] BP CHECK 10/09/2018 Visit Diagnosis Plan: [...] I10 09/30/2018 Appointment: María Elena Appiah WPtel: [address] [place] [address] [place] FOLLOW UP 09/30/2018 Visit Diagnosis Plan: [...] F51.01 08/27/2018 Appointment: María Elena Appiah WPtel: [address] [place] [address] ACUTE ILLNESS 08/27/2018 Appointment: María Elena Appiah WPtel: [address] [place] [address] [place] Patient stated she went out to [...] shes prn. Tyle... 08/09/2018 Appointment: María Elena Appiah WPtel: [address] [place] [address] ACUTE ILLNESS 08/09/2018 Appointment: María Elena Appiah WPtel: [address] [place] [address] NO SHOW 08/08/2018 Visit Diagnosis Plan: Anxiety [...] B35.4 07/22/2018 Appointment: María Elena Appiah WPtel: [address] [place] [address] ACUTE ILLNESS 07/22/2018 Appointment: María Elena Appiah WPtel: [address] [place] [address] [place] INJECTION 06/19/2018 Patient Education: Patient Medication [...] ICD-10 : L03.031 06/17/2018 Appointment: Kathleen Zuniga [address] [place] [address] ACUTE ILLNESS 06/17/2018 Patient Education: Patient Medication [...] ICD-10 : B02.9 05/16/2018 Appointment: Kathleen Zuniga [address] [place], [place] [address] ACUTE ILLNESS 05/16/2018 Patient Education: Patient Medication [...] ICD-10 : L03.115 03/20/2018 Appointment: Kathleen Zuniga [address] [place], [place] [address] FOLLOW UP 03/20/2018 Patient Education: Patient Medication [...] ICD-10 : L03.115 03/18/2018 Appointment: Kathleen Zuniga [address] [id number] FOLLOW UP 03/18/2018 Patient Education: Patient Medication [...] ICD-10 : L03.115 03/15/2018 Appointment: Kathleen Zuniga [address] [place], [place] [address] ACUTE ILLNESS 03/15/2018 Patient Education: Patient Medication [...] ICD-10 : J01.90 02/11/2018 Appointment: Kathleen Zuniga [address] [place], [place] [id number] ACUTE ILLNESS 02/11/2018 Patient Education: Patient Medication Summary Completed 02/11/2018 Appointment: María Elena Appiah WPtel: [address] [facility] INJECTION 02/01/2018 Patient Education: Patient Medication Summary [...] ICD-10 : M51.16 01/30/2018 Appointment: Kathleen Zuniga [address] [place] [address] ACUTE ILLNESS 01/30/2018 Patient Education: Patient Medication [...] E11.65 12/18/2017 Appointment: María Elena Appiah WPtel: [address] [facility] Annual Well Visit 12/18/2017 Patient Education: Patient Medication Summary Completed 12/18/2017 Care Plan: Referral Order SNOMED-CT : [id number] Pending 12/18/2017 Appointment: María Elena Appiah WPtel: [address] [facility] [place] INJECTION 12/10/2017 Patient Education: Patient Medication [...] ICD-10 : L03.031 12/07/2017 Appointment: Kathleen Zuniga [address] [place] [address] ACUTE ILLNESS 12/07/2017 Patient Education: Patient Medication [...] ICD-10 : J01.00 10/08/2017 Appointment: Kathleen Zuniga [address] [place] [address] ACUTE ILLNESS 10/08/2017 Patient Education: Patient Medication Summary Completed 10/08/2017 Appointment: María Elena Appiah WPtel: [address] [facility] [place] INJECTION 09/21/2017 Patient Education: Patient [...] Visit Diagnosis Plan: Insomnia, unspecified Discussion : nba lunesta since ineffective. trial of hydroxyzine for anxiety and sleep. notify office if ineffective. follow up in one month as well. home sleep apnea test to be ordered to rule out apnea. ICD-9 : 780.52 ICD-10 : G47.00 09/20/2017 Visit Diagnosis Plan: Snoring Discussion: home sleep a pnea test to be ordered. ICD-9 : 786.09 ICD-10 : R06.83 09/20/2017 Appointment: Kathleen Zuniga [address] [place] [address] ACUTE ILLNESS 09/20/2017 Patient Education: Patient Medication [...] ICD-10 : L60.0 08/29/2017 Appointment: Kathleen Zuniga [address] [place] [address] OFFICE SURGERY 08/29/2017 Patient Education: Patient Medication Summary Completed 08/29/2017 Visit Diagnosis Plan: Actinic keratosis Discussion: Cr yotherapy as above ICD-9 : 702.0 ICD-10 : L57.0 08/01/2017 Appointment: María Elena Appiah WPtel: [address] [place] [address] OFFICE SURGERY 08/01/2017 Patient Education: Patient Medication Summary Completed 08/01/2017 Appointment: María Elena Appiah WPtel: [address] [place] [address] PATIENT THOUGHT APPOINTMENT WAS TOMORROW 07/26/17 CALLED 15 MINUTES BEFORE APPT TO SAY SHE DIDN'T HAVE ANYONE TO COVER HER BUSINESS AND WOULD NOT MAKE IT NO SHOW 07/25/2017 Visit Diagnosis Plan: Cellulitis of left toe Discussio n: Clindamycin and notify if worsening or persistis ICD-9 : 681.10 ICD-10 : L03.032 07/19/2017 Appointment: María Elena Appiah WPtel: [address] [place] [address] MEDICATION REVIEW 07/19/2017 Patient Education: Patient Medication Summary Completed 07/19/2017 Appointment: María Elena Appiahtel: [address] [place] [address] CANCELED 07/04/2017 Visit Diagnosis Plan: Generalized hyperhidrosis Discus ian: CBC, CMP, TSH, free T4 ordered to assess. will review labs. ICD-9 : 780.8 ICD-10 : R61 06/27/2017 Visit Diagnosis Plan: Chronic sinusitis, unspecified D iscussion: Referral sent to dr. albarado in [place] per patient request. patient has been treated multiple times for sinus infections with no recovery. patient was seen by dr sanchez in the past with no interventions. patient has deviated septum which may be affecting her sinuses. 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, including hip Discussion: Shave removal of above lesio n--sent to pathology ICD-9 : 216.7 ICD-10 : D23.72 01/24/2017 Appointment: María Elena Appiah WPtel: [address] [place] [address] 01/23 confirmed ~sl OFFICE SURGERY 01/24/2017 Patient Education: Patient Medication Summary Completed 01/24/2017 Appointment: Loan Sánchez [address] [place] [address] 01/09 rescheduled~sl RESCHEDULED 01/15/2017 Visit Diagnosis Plan: [...] L81.4 12/13/2016 Appointment: María Elena Appiah [facility]Ptel[id number] 12/12 confirmed ~ MEDICATION REVIEW 12/13/2016 Patient Education: Patient Medication Summary Completed 12/13/2016 Appointment: María Elena Appiah WPtel: [id number] [place] rescheduled for 12/13/16 at 11am RESCHEDULED 0 12/06/2016 Appointment: María Elena Appiah WPtel: [phone] [place] CANCELED 11/23/2016 Patient Education: Patient Medication [...] F51.01 11/01/2016 Appointment: María Elena Appiah WPtel: [phone] 10/31 lm `sl 11/01 lm` MEDICATION REVIEW 017 Patient Education: Patient Medication Summary Completed 11/01/2016 Referral: Canelo Overton WPtel: [phone] [id number] [place] Referral Initiated 10/30/2016 Visit Diagnosis Plan: [...] Z01.419 10/17/2016 Appointment: María Elena Appiah WPtel: [address] [place], [place] [id number] [place] 10/16 confirmed ~sl PAP 10/17/2016 Patient Education: Patient Medication Summary Completed 10/17/2016 Care Plan: MAMMOGRAM SCREENING LOINC : 2 6347-5 Pending 10/17/2016 Visit Diagnosis Plan: Other seasonal allergic rhinitis Discussion: Decadron/Garamycin Nasal [place] Mix Too soon for steroid Retry zyrtec 10mg daily ICD-9 : 477.9 ICD-10 : J30.2 10/10/2016 Appointment: María Elena Appiah WPtel: [address] [place], [place] [id number] [place] FOLLOW UP 10/10/2016 Patient Education: Patient Medication Summary Completed 10/10/2016 Appointment: María Elena Appiah WPtel: [address] [place] [id number] 10/02 reschedule `sl RESCHEDULED 10/02/2016 Visit Plan: See surgery for removal of n ew left arm lesion and right foot lesion Lyrica to use next month for left arm paresthesias Continue current meds Discussed sunscreen/sunblock combo 09/19/2016 Appointment: María Elena Appiah WPtel: [address] [place], [place] [phone] [place] 09/18 confirmed ~sl FOLLOW UP 09/19/2016 Patient Education: Patient Medication Summary Completed 09/19/2016 Patient Education: Patient Medication Summary Completed 09/18/2016 Care Plan: MAMMOGRAM BOTH BREASTS LOINC : 00602-6 Pending 09/18/2016 Visit Plan: Discussed that needs [...] sinuses 08/24/2016 Appointment: María Elena Appiah WPtel: [address] [place] [address] ACUTE ILLNESS 08/24/2016 Patient Education: Patient Medication Summary Completed 08/24/2016 Patient Education: Patient Medication Summary Completed 08/23/2016 Care Plan: MAMMOGRAM SCREENING LOINC : 2 6347-5 Pending 08/23/2016 Visit Plan: Finish doxycycline Add Breo 100/25 1 p BID for 2 weeks If not improving within next 2 days will get CXR 08/16/2016 Appointment: María Elena Appiah WPtel: [address] [place] [address] ACUTE ILLNESS 08/16/2016 Patient Education: Patient Medication Summary Completed 08/16/2016 Visit Plan: Supportive care. Rest, Fluid s, Tylenol/Motrin prn fever or bodyaches. Notify if worsening symptoms. Doxycyline and Prednisone 08/10/2016 Appointment: María Elena Appiah WPtel: [address] [place] [address] 08/09 lm`sl....confirmed-sp FOLLOW UP 09/2015 Patient Education: Patient Medication Summary Completed 08/10/2016 Visit Plan: Saline nasal flushes prn. Ty lenol/Motrin prn headache. Notify if persists/symptoms worsening. Dexamethasone 8mg IM today May use coricedan and mucinex 08/02/2016 Appointment: María Elena Appiah WPtel: [address] [place] [address] ACUTE ILLNESS 08/02/2016 Patient Education: Patient Medication Summary Completed 08/02/2016 Visit Plan: Cryotherapy as above and lef t forearm lesion removal as above with 5-0 punch biopsy and sent to path Return in 10 days for suture removal 08/01/2016 Appointment: María Elena Appiah WPtel: [address] [place], [place] [phone] 07/31 confirmed`~sl OFFICE SURGERY 08/01/2016 Patient Education: Patient Medication Summary Completed 08/01/2016 Visit Plan: Stop clindamycin Check CBC, CMP, ESR now/STAT 07/27/2016 Appointment: María Elena Appiah WPtel: [address] [place], [place] [id number] ACUTE ILLNESS 07/27/2016 Patient Education: Patient Medication Summary Completed 07/27/2016 Visit Plan: Update lab and check ABIs to start with Will likely need cardiology evaluation to rule out PVD Clindamycin for 10 days Daily yogurt or probiotic Will return for removal of left arm lesions 07/20/2016 Appointment: María Elena Appiah WPtel: [address] [place], [place] [id number] ACUTE ILLNESS 07/20/2016 Patient Education: Patient Medication Summary Completed 07/20/2016 Patient Education: Patient Medication Summary Completed 07/20/2016 Care Plan: MAMMOGRAM BOTH BREASTS LOINC : 37662-8 Pending 07/20/2016 Care Plan: US EXAM CHEST LOINC : 62113-7 Pending 07/20/2016 Visit Plan: Wound culture collected from left great toe Appearance is somewhat staph like Rx as above Wound cleanser and skin care reviewed May need to add oral antibiotic if sores do not heal or continue to reoccur 07/06/2016 Appointment: Loan Sánchez [address] [facility] ACUTE ILLNESS 07/06/2016 Patient Education: Patient Medication Summary Completed 07/06/2016 Appointment: María Elena Appiah WPtel: [address] [place], [place] [phone] [place] INJECTION 05/25/2016 Patient Education: Patient Medication Summary Completed 05/25/2016 Visit Plan: Saline nasal flushes prn. Ty lenol/Motrin prn headache. Notify if persists/symptoms worsening. Dexamethasone and Rocephin given 04/26/2016 Appointment: María Elena Appiah WPtel: [address] [place] [address] ACUTE ILLNESS 04/26/2016 Patient Education: Patient Medication Summary Completed 04/26/2016 Visit Plan: Check CBC, CMP, TSH, FreeT4, HbA1C, estradiol, lipids in AM 03/02/2016 Appointment: María Elena Appiah WPtel: [address] [place] [address] 03/01 lm~sl ACUTE ILLNESS 03/02/2016 Patient Education: Patient Medication Summary Completed 03/02/2016 Visit Plan: Exam is nearly normal Needs to be taking daily antihistamine Would prefer to use oral steroids instead of shot but patient insist that oral steroids cause horrible headaches for her Will given kenalog IM instead 02/09/2016 Appointment: Loan Sánchez [address] [place] [address] ACUTE ILLNESS 02/09/2016 Patient Education: Patient Medication Summary Completed 02/09/2016 Visit Plan: Culture urine Macrobid DC xa nax Trial of Ativan 1mg q HS 01/24/2016 Appointment: María Elena Appiah WPtel: [address] [place] [address] ACUTE ILLNESS 01/24/2016 Patient Education: Patient Medication Summary Completed 01/24/2016 Visit Plan: No steroid or rocephin injec tion warranted Can have oral prednisone Continue current home regimen Needs to follow up with Dr Sanchez if problems persist 12/23/2015 Appointment: Loan Sánchez [address] [place] [address] ACUTE ILLNESS 12/23/2015 Patient Education: Patient Medication Summary Completed 12/23/2015 Visit Plan: Saline nasal flushes prn. Ty lenol/Motrin prn headache. Notify if persists/symptoms worsening. Kenalog 40mg IM today 12/08/2015 Appointment: María Elena Appiah WPtel: [address] [place] [address] 12/06 confirmed~sl ACUTE ILLNESS 12/08/2015 Patient Education: Patient Medication Summary Completed 12/08/2015 Appointment: María Eelna Appiah WPtel: [address] [place] [address] ACUTE ILLNESS 11/18/2015 Patient Education: Patient Medication Summary Completed 10/11/2015 Appointment: María Elena Appiah WPtel: [address] [place] [address] [place] INJECTION 10/07/2015 Patient Education: Patient Medication Summary Completed 10/07/2015 Visit Plan: Check renal arterial doppler s and ECHO Change amlodopine to lotrel 5/20mg q HS Will need stress test as well Check CMP, uric acid, ESR 10/06/2015 Appointment: María Elena Appiah WPtel: [address] [place] [address] ACUTE ILLNESS 10/06/2015 Patient Education: Patient Medication Summary Completed 10/06/2015 Patient Education: [facility] - [employer]aving [employer] - Amlodipine Besylate - 18-64 - Dynamic Portal ID Completed 10/06/2015 Appointment: María Elena Appiah WPtel: [address] [place] [address] FOLLOW UP 09/22/2015 Visit Plan: Cephalexin 500 mg PO bid Mery ly topical Mupirocin to lesions on left lateral neck and face Follow-up in one week. Sooner if symptoms worsen 09/14/2015 Appointment: June Flores WPtel: [address] [place] [address] ACUTE ILLNESS 09/14/2015 Patient Education: Patient Medication Summary Completed 09/14/2015 Visit Plan: Change bystolic to bedtime d osing and amlodopine to morning dosing Cryotherapy as above to AKs 09/07/2015 Appointment: María Elena Appiah WPtel: [address] [place] [address] 09/06 appointment made and confirmed ~sl FOLLOW UP 09/07/2015 Patient Education: Patient Medication Summary Completed 09/07/2015 Visit Plan: Increase bystolic back to 20 mg daily but will split and take 10mg in AM and 10mg in PM Stress Reducers 08/18/2015 Appointment: María Elena Appiah WPtel: [address] [place] [address] 08/17/15 appt confirmed cn ACUTE ILLNESS 08/18 Patient Education: Patient Medication Summary Completed 08/18/2015 Appointment: María Elena Appiah WPtel: [address] [place] [address] BP CHECK 07/07/2015 Patient Education: Patient Medication Summary Completed 07/07/2015 Appointment: María Elena Appiah WPtel: [address] [place] [address] BP CHECK 06/24/2015 Patient Education: Patient Medication Summary Completed 06/24/2015 Appointment: María Elena Appiah WPtel: [address] [place] [address] BP CHECK 06/21/2015 Patient Education: Patient Medication Summary Completed 06/21/2015 Visit Plan: Lab discussed Continue curre nt meds and lifestyle modification Recheck lab in 6mos 06/16/2015 Appointment: María Elena Appiah WPtel: [address] [place] [address] 06/15 confirmed FOLLOW UP 06/16/2015 Patient Education: Patient Medication Summary Completed 06/16/2015 Patient Education: Patient Medication Summary Completed 06/15/2015 Visit Plan: Increase cymbalta to 60mg q HS Keep clonidine at current dose Recheck 2weeks Change xanax to klonopin 06/02/2015 Appointment: María Elena Appiah WPtel: [address] [place] [address] 06/02 lm FOLLOW UP 06/02/2015 Patient Education: Patient Medication Summary Completed 06/02/2015 Appointment: María Elena Appiah WPtel: [address] [place] [address] ACUTE ILLNESS 05/24/2015 Visit Plan: Increase clonidine to 0.2mg q HS Add cymbalta 30mg q HS Recheck 2weeks Stress Reducers Check fasting lab Discussed sleep study 05/20/2015 Appointment: María Elena Appiah WPtel: [address] [place] [address] ACUTE ILLNESS 05/20/2015 Patient Education: Patient Medication Summary Completed 05/20/2015 Patient Education: [facility] - [employer] - Cymbalta - 18-64 - Dynamic Portal ID Completed 05/20/2015 Appointment: María Elena Appiah WPtel: [address] [place] [address] BP CHECK 05/19/2015 Patient Education: Patient Medication Summary Completed 05/19/2015 Visit Plan: Topical Bactroban alternatin g with topical betamethasone Recheck 2weeks 05/10/2015 Appointment: María Elena Appiah WPtel: [address] [place] [address] 05/07 vm cn...05/07 appt confirmed OFFICE SURGER Y 05/10/2015 Patient Education: Patient Medication Summary Completed 05/10/2015 [facility]: [facility] [address] Referral Initiated 05/04/2015 Visit Plan: Saline nasal flushes prn. Ty lenol/Motrin prn headache. Notify if persists/symptoms worsening. Depomedrol 40mg IM today 03/16/2015 Appointment: María Elena Appiah WPtel: [address] [place] [address] ACUTE ILLNESS 03/16/2015 Patient Education: Patient Medication Summary Completed 03/16/2015 Appointment: María Elena Appiah WPtel: [address] [place] [address] ER Follow UP 03/09/2015 Visit Plan: Cryotherapy to lesions as ab ove 10/27/2014 Appointment: María Elena Appiah WPtel: [address] [place] [address] OFFICE SURGERY 10/27/2014 Patient Education: Patient Medication Summary Completed 10/27/2014 Appointment: June Flores WPtel: [address] [place], [place] [id number] ACUTE ILLNESS 09/11/2014 Patient Education: Patient Medication Summary Completed 09/11/2014 Visit Plan: Lab discussed Lipitor 10mg d aily Coenzyme Q-10 400mg daily Vitamin D3 5000u daily Recheck lipids with LFTs in 3mos then fwup 08/31/2014 Appointment: María Elena Appiah WPtel: [address] [place] [address] 08/28 voicelail FOLLOW UP 08/31/2014 Patient Education: Patient Medication Summary Completed 08/31/2014 Appointment: María Elena Appiah WPtel: [address] [place] [address] [place] LAB 08/27/2014 Appointment: María Elena Appiah WPtel: [address] [place] [address] [place] LAB 08/27/2014 Patient Education: Patient Medication Summary Completed 08/27/2014 Appointment: María Elena Appiah WPtel: [address] [place] [address] ACUTE ILLNESS 07/23/2014 Appointment: María Elena Appiah WPtel: [address] [place] [address] ACUTE ILLNESS 07/21/2014 Patient Education: Patient Medication Summary Completed 07/21/2014 Visit Plan: Kenalog 40mg IM today Contin ue narendra and singulair Add Flonase 07/15/2014 Appointment: María Elena Appiah WPtel: [address] [place] [address] ACUTE ILLNESS 07/15/2014 Appointment: María Elena Appiah WPtel: [address] [place], [place] [id number] ACUTE ILLNESS 07/15/2014 Patient Education: Patient Medication Summary Completed 07/15/2014 Visit Plan: Will do metolazone 2.5mg prn with 6 potassium and see if causes as severe cramping Trial of of seroquel XR 50mg q PM with evening meal and let us know how works 05/18/2014 Appointment: María Elena Appiah WPtel: [address] [place] [address] 05/15 left message FOLLOW UP 05/18/2014 Patient Education: Patient Medication Summary Completed 05/18/2014 Appointment: María Elena Appiah WPtel: [address] [place] [address] LAB 05/14/2014 Patient Education: Patient Medication Summary Completed 05/14/2014 Appointment: María Elena Appiah WPtel: [address] [place], [place] [phone] [place] INJECTION 04/22/2014 Visit Plan: Tisha and Miranda today a nd finish abx given from urgent care 04/21/2014 Appointment: María Elena Appiah WPtel: [address] [place], [place] [phone] [place] INJECTION 04/21/2014 Patient Education: Patient Medication Summary Completed 04/21/2014 Appointment: June Flores WPtel: [address] [place], [place] [id number] ACUTE ILLNESS 03/04/2014 Patient Education: Patient Medication Summary Completed 03/04/2014 Appointment: María Elena Appiah WPtel: [address] [place], [place] [phone] [place] INJECTION 02/27/2014 Patient Education: Patient Medication Summary Completed 02/27/2014 Visit Plan: Cryotherapy as above to all lesions Patient wants to try no meds for insomnia for a while and see how goes 01/13/2014 Appointment: María Elena Appiah WPtel: [address] [place] [address] OFFICE SURGERY 01/13/2014 Patient Education: Patient Medication Summary Completed 01/13/2014 Visit Plan: Stop Melatonin Stop Soma Tri al of trazadone 75mg q HS See ENT for possible tubes as has had chronic ETD and serous otitis media with numerous steroids 12/24/2013 Appointment: María Elena Appiah WPtel: [address] [place] [address] ACUTE ILLNESS 12/24/2013 Patient Education: Patient Medication Summary Completed 12/24/2013 Visit Plan: Saline nasal flushes prn. Ty lenol/Motrin prn headache. Notify if persists/symptoms worsening. 11/12/2013 Appointment: María Elena Appiah WPtel: [address] [place] [address] ACUTE ILLNESS 11/12/2013 Patient Education: Patient Medication Summary Completed 11/12/2013 Appointment: María Elena Appiah WPtel: [address] [place] [address] ACUTE ILLNESS 10/21/2013 Patient Education: Patient Medication Summary Completed 10/21/2013 Visit Plan: Sleep hygiene and sleep rout ine Melatonin 10mg q HS Support stockings and observe 09/22/2013 Appointment: María Elena Appiah WPtel: [address] [place] [address] ACUTE ILLNESS 09/22/2013 Patient Education: Patient Medication Summary Completed 09/22/2013 Appointment: June Flores WPtel: [address] [place] [address] ACUTE ILLNESS 08/27/2013 Patient Education: Patient Medication Summary Completed 08/27/2013 Visit Plan: Proceed with CT scan of head /neck Proceed with occipital nerve injections Butrans 20mcg patch weekly until can get into see Dr. Mcdonough for injections 08/04/2013 Appointment: María Elena Appiah WPtel: [address] [place] [address] FOLLOW UP 08/04/2013 Patient Education: Patient Medication Summary Completed 08/04/2013 Visit Plan: OMT done Daily neck stretche s, moist heat Increase Celebrex to 200mg BID Add flexeril 07/23/2013 Appointment: María Elena Appiah WPtel: [address] [place] [address] 07/22 voicemail FOLLOW UP 07/23/2013 Patient Education: Patient Medication Summary Completed 07/23/2013 Appointment: María Elena Appiah WPtel: [address] [place] [address] ACUTE ILLNESS 06/23/2013 Patient Education: Patient Medication Summary Completed 06/23/2013 Appointment: María Elena Appiah WPtel: [address] [place] [address] ACUTE ILLNESS 05/26/2013 Patient Education: Patient Medication Summary Completed 05/26/2013 Visit Plan: Decrease clonidine to 0.1mg TID If BP remains stable consider decreasing amlodopine Prednisone for 5 days BP check in 1mo 04/16/2013 Appointment: María Elena Appiah WPtel: [address] [place] [address] 04/14 pt called and confirmed appt FOLLOW UP 04/16/2013 Patient Education: Patient Medication Summary Completed 04/16/2013 Appointment: María Elena Appiah WPtel: [address] [place] [address] ACUTE ILLNESS 03/05/2013 Patient Education: Patient Medication Summary Completed 03/05/2013 Visit Plan: Pt has MARIA ELENA on with Dr. Sharonda Arita Butrans patch Refill Hydrocodone early tomorrow 12/23/2012 Appointment: María Elena Appiah WPtel: [address] [place] [address] FOLLOW UP 12/23/2012 Patient Education: Patient Medication Summary Completed 12/23/2012 Appointment: Lashawn Eckert WPtel: [address] [place], [place] [address] [place] ACUTE ILLNESS 12/16/2012 Patient Education: Patient Medication Summary Completed 12/16/2012 Visit Plan: Proceed with updated MRI of LS spine Continue gabapentin and add soma and diclofenac Will likely need to go for another epidural 12/09/2012 Appointment: María Elena Appiah WPtel: [address] [place] [address] ACUTE ILLNESS 12/09/2012 Patient Education: Patient Medication Summary Completed 12/09/2012 Visit Plan: Injection as above Finish me drol dose pack Chiropracter this afternoon 12/04/2012 Appointment: María Elena Appiah WPtel: [address] [place] [address] ACUTE ILLNESS 12/04/2012 Patient Education: Patient Medication Summary Completed 12/04/2012 Appointment: Mary Tillman WPtel: [address] [place] [address] FOLLOW UP 11/22/2012 Patient Education: Patient Medication Summary Completed 11/22/2012 Appointment: María Elena Appiah WPtel: [address] [place] [address] ACUTE ILLNESS 11/21/2012 Patient Education: Patient Medication Summary Completed 11/21/2012 Appointment: María Elena Appiah WPtel: [address] [place] [address] BP CHECK 11/07/2012 Patient Education: Patient Medication Summary Completed 11/07/2012 Visit Plan: reports extra clonidine and extra amlodipine and extra alprazalam. extra Ketolorac and promethazine last night. Bystolic 10 mg QAM and will continue all other blood pressure meds. Pt. encouraged to rest and hydrate. Discussed stroke and [place] symptoms. Pt. instructed to seek ER eval if symptoms worsen or headache persists. Pt. agrees to ER eval/EMS transport if symptoms worsen. BP re-check. 10/29/2012 Appointment: Lashawn Eckert WPtel: [address] [place] [address] ACUTE ILLNESS 10/29/2012 Patient Education: Patient Medication Summary Completed 10/29/2012 Appointment: María Elena Appiah WPtel: [address] [place], [place] [id number] ACUTE ILLNESS 10/14/2012 Patient Education: Patient Medication Summary Completed 10/14/2012 Appointment: María Elena Appiah WPtel: [address] [place], [place] [id number] UA 09/27/2012 Patient Education: Patient Medication Summary Completed 09/27/2012 Appointment: María Elena Appiah WPtel: [address] [place], [place] [id number] ACUTE ILLNESS 09/25/2012 Patient Education: Patient Medication Summary Completed 09/25/2012 Appointment: María Elena Appiah WPtel: [address] [place] [address] BP CHECK 09/24/2012 Appointment: María Elena Appiah WPtel: [address] [place], [place] [id number] ACUTE ILLNESS 08/29/2012 Patient Education: Patient Medication Summary Completed 08/29/2012 Visit Plan: Cryotherapy as above See Karlos m for right ear lesion--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 ACUTE ILLNESS 05/06/2012 Patient Education: Patient Medication Summary Completed 05/06/2012 Visit Plan: Pt wants to hold on any furt her sleep medications 04/03/2012 Appointment: María Elena Appiah WPtel: [address] [place], [place] [id number] FOLLOW UP 04/03/2012 Patient Education: Patient Medication Summary Completed 04/03/2012 Appointment: María Elena Appiah WPtel: [address] [place], [place] [id number] [place] FOLLOW UP 03/19/2012 Patient Education: Patient Medication Summary Completed 03/19/2012 Appointment: María Elena Appiah WPtel: [address] [place], [place] [id number] BP CHECK 02/22/2012 Patient Education: Patient Medication Summary Completed 02/22/2012 Appointment: María Elena Appiahtel: [address] [place] [address] BP CHECK 02/21/2012 Patient Education: Patient Medication Summary Completed 02/21/2012 Visit Plan: Doxycycline and bactroban fo r foot Supportive care on ankles and knees Add norvasc for BP 02/20/2012 Appointment: María Elena Appiahtel: [address] [place] [address] ER Follow UP 02/20/2012 Patient Education: Patient Medication Summary Completed 02/20/2012 Appointment: María Elena Appiahtel: [address] [place], [place] [id number] ACUTE ILLNESS 01/30/2012 Patient Education: Patient Medication Summary Completed 01/30/2012 Appointment: María Elena Appiah WPtel: [address] [place] [address] ACUTE ILLNESS 01/24/2012 Patient Education: Patient Medication Summary Completed 01/24/2012 Visit Plan: Daily back stretches, moist heat, Biofreeze prn OMT done 01/10/2012 Appointment: María Elena Appiah WPtel: [address] [place] [address] ACUTE ILLNESS 01/10/2012 Patient Education: Patient Medication Summary Completed 01/10/2012 Appointment: María Elena Appiah WPtel: [address] [place] [address] FOLLOW UP 12/11/2011 Patient Education: Patient Medication Summary Completed 12/11/2011 Appointment: María Elena Appiahtel: [address] [place] [address] ACUTE ILLNESS 11/09/2011 Patient Education: Patient Medication Summary Completed 11/09/2011 Appointment: María Elena Appiah WPtel: [address] [place] [address] ACUTE ILLNESS 09/13/2011 Patient Education: Patient Medication Summary Completed 09/13/2011 Visit Plan: Check CBC, TSH, Free T4, CMP , ESR, Vit D, B12 now Start Prednisone today 08/31/2011 Appointment: María Elena Appiahtel: [address] [place] [address] ACUTE ILLNESS 08/31/2011 Patient Education: Patient Medication Summary Completed 08/31/2011 Appointment: María Elena Appiahtel: [address] [place] [address] INJECTION 07/20/2011 Patient Education: Patient Medication Summary Completed 07/20/2011 Visit Plan: Continue current meds Monite r BP Cont stretches from PT 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 07/06/2011 Appointment: María Elena Appiahtel: [address] [place] [address] FOLLOW UP 07/06/2011 Patient Education: Patient Medication Summary Completed 07/06/2011 Appointment: María Elena Appiahtel: [address] [place] [address] BP CHECK 06/06/2011 Patient Education: Patient Medication Summary Completed 06/06/2011 Visit Plan: Add Bystolic at 2.5mg QAM Ad d Robaxin 750mg 2 po q HS BP check in 2wks 05/22/2011 Appointment: María Elena Appiah WPtel: [address] [place], [place] [phone] [place] FOLLOW UP 05/22/2011 Patient Education: Patient Medication Summary Completed 05/22/2011 Appointment: María Elena Appiah WPtel: [address] [place], [place] [phone] ER Follow UP 05/09/2011 Patient Education: Patient Medication Summary Completed 05/09/2011 Appointment: María Elena Appiah WPtel: [address] [place], [place] [id number] FOLLOW UP 02/22/2011 Visit Plan: Rx written for Hydrocodone 1 0/325mg #240 See Ortho 02/14/2011 Appointment: María Elena Appiah WPtel: [address] [place] [address] OMT 02/14/2011 Patient Education: Patient Medication Summary [...] lab work. 02/03/2011 Appointment: Lashawn Eckert WPtel: [address] [place], [place] [phone] ACUTE ILLNESS 02/03/2011 Patient Education: Patient Medication Summary Completed 02/03/2011 Visit Plan: OMT done Cont daily stretche s 01/31/2011 Appointment: María Elena Appiah WPtel: [address] [place] [address] ACUTE ILLNESS 01/31/2011 Patient Education: Patient Medication Summary Completed 01/31/2011 Visit Plan: Continue pain meds OMT done Proceed with PT No work this summer01/25/2011 Appointment: María Elena Appiah WPtel: [address] [place] [address] ACUTE ILLNESS 01/25/2011 Patient Education: Patient Medication Summary Completed 01/25/2011 Visit Plan: Start PT Long discussion abo ut getting pain meds from only us and can only have max of 4grams of tylenol per day Change to Hydrocodone 10/325mg 1- 2 po TID prn pain--#180 called to [facility] 01/18/2011 Appointment: María Elena Appiah WPtel: [address] [place] [address] FOLLOW UP 01/18/2011 Patient Education: Patient Medication Summary Completed 01/18/2011 Visit Plan: Daily back stretches, moist heat, Biofreeze prn 11/29/2010 Appointment: María Elena Appiah WPtel: [address] [place] [address] ER Follow UP 11/29/2010 Patient Education: Patient Medication Summary Completed 11/29/2010 Visit Plan: Saline nasal flushes prn. Ty lenol/Motrin prn headache. Notify if persists/symptoms worsening. Finish augmentin Add Medrol Dose Pack 10/10/2010 Appointment: María Elena Appiah WPtel: [address] [place] [address] ACUTE ILLNESS 10/10/2010 Patient Education: Patient Medication Summary Completed 10/10/2010 Visit Plan: Cryotherapy x3 to multiple l esions on both forearms 07/19/2010 Appointment: María Elena Appiah WPtel: [address] [place] [address] OFFICE SURGERY 07/19/2010 Patient Education: Patient Medication Summary Completed 07/19/2010 Appointment: María Elena Appiah WPtel: [address] [place] [address] BP CHECK 07/06/2010 Patient Education: Patient Medication Summary Completed 07/06/2010 Appointment: María Elena Appiahtel: [address] [place] [address] BP CHECK 06/30/2010 Patient Education: Patient Medication Summary Completed 06/30/2010 Appointment: María Elena Appiah WPtel: [address] [place] [address] BP CHECK 06/20/2010 Patient Education: Patient Medication Summary Completed 06/20/2010 Visit Plan: Change Diovan to Exforge 160 /5mg QD OMT done to thoracics BP check in 2wks 06/07/2010 Appointment: María Elena Appiah WPtel: [address] [place] [address] FOLLOW UP 06/07/2010 Patient Education: Patient Medication Summary Completed 06/07/2010 Appointment: María Elena Appiah WPtel: [address] [place] [address] BP CHECK 06/03/2010 Patient Education: Patient Medication Summary Completed 06/03/2010 Appointment: María Elena Appiah WPtel: [address] [place] [address] BP CHECK 06/01/2010 Patient Education: Patient Medication Summary Completed 06/01/2010 Visit Plan: Irritated skin tags to left neck x2 excised at base with scissors and base cauterized 05/30/2010 Appointment: María Elena Appiah WPtel: [address] [place] [address] OFFICE SURGERY 05/30/2010 Patient Education: Patient Medication Summary Completed 05/30/2010 Visit Plan: Saline nasal flushes prn. Ty lenol/Motrin prn headache. Notify if persists/symptoms worsening. Restart Nasonex Has allergy testing set for May 25 04/27/2010 Appointment: María Elena Appiah WPtel: [address] [place] [address] ACUTE ILLNESS 04/27/2010 Patient Education: Patient Medication Summary Completed 04/27/2010 Visit Plan: Saline nasal flushes prn. Ty lenol/Motrin prn headache. Notify if persists/symptoms worsening. Omnaris BID plus injections 04/05/2010 Appointment: María Elena Appiah WPtel: [address] [place] [address] ACUTE ILLNESS 04/05/2010 Patient Education: Patient Medication Summary Completed 04/05/2010 Visit Plan: Saline nasal flushes prn. Ty lenol/Motrin prn headache. Notify if persists/symptoms worsening. 03/09/2010 Appointment: María Elena Appiah WPtel: [address] [place] [address] ACUTE ILLNESS 03/09/2010 Patient Education: Patient Medication Summary Completed 03/09/2010 Visit Plan: Cont Clonidine as is Cont Pr emarin Fwup with surgery as scheduled 03/03/2010 Appointment: María Elena Appiah WPtel: [address] [place] [address] FOLLOW UP 03/03/2010 Patient Education: Patient Medication Summary Completed 03/03/2010 Visit Plan: Check Pelvic US now Chelsey James vs Hysterectomy 01/17/2010 Appointment: María Elena Appiahtel: [address] [place] [address] ACUTE ILLNESS 01/17/2010 Patient Education: Patient Medication Summary Completed 01/17/2010 Visit Plan: Check fasting lab and schedu le Mammogram 2gm Na Diet Trial of Ambien 10mg qhs Fwup pending lab results 12/27/2009 Appointment: María Elena Appiahtel: [address] [place] [address] ESTABLISHED PATIENT 12/27/2009 Patient Education: Patient Medication Summary Completed 12/27/2009 Referral: Canelo Overton WPtel: [phone] [id number] [place] Referral Initiated Referral: Philipp Flores WPtel: [address] [id number] [place] Referral Appointment Requested Instructions Comment . [...] to rest and hydrate. Discussed stroke and [place] symptoms. Pt. instructed to seek ER eval [...]
--- OUTSIDE RECORDS SUMMARY | 2020-03-13 04:11 | XMS REPORT | CCD ---
Author Author Gale Appiah D.O. 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 Name Role Phone María Elena Appiah D.O., PP Unavailable CCM Unavailable Summary Purpose Interface Exchange Insurance Providers Payer name Policy type / Coverage type Covered constitution party ID Effective Begin Date Effective End Date [facility] Commercial Insurance [id number] Unknown Family History Family History data not found Social History Social History Element Codes Description Effective Dates Tobacco history SNOMED CT: [id number] Never smoker 05/22/2011 Allergies, Adverse Reactions, Alerts [...] Start Date Stop Date Status Fill Instructions Premarin 1.25 mg tablet RxNorm: 650432 1 Tablet(s) Oral QD 02/16/20 20 05/15/2020 Active celecoxib 200 mg capsule RxNorm: 023214 1 Capsule(s) Or al two times a day as needed for pain 02/16/2020 05/15/2020 Active Farxiga 10 mg tablet RxNorm: 7707676 1 Tablet(s) Oral QAM 02/13/2020 05/13/2020 Active Farxiga 10 mg tablet RxNorm: 1149474 1 Tablet(s) Oral QAM 02/13/2020 02/12/2020 Inactive Keflex 500 mg capsule RxNorm: 754194 1 Capsule(s) Oral two time s a day 02/12/2020 02/19/2020 Active Lipitor 10 mg tablet RxNorm: 480887 TAKE ONE TABLET BY MOUTH DAILY 01/23/2020 No Stop Date Active Januvia 100 mg tablet RxNorm: 326106 TAKE ONE TABLET BY MOUTH DAILY 01/22/2020 No Stop Date Active gabapentin 300 mg capsule RxNorm: 655417 TAKE ONE CAPSU LE BY MOUTH EVERY NIGHT AT BEDTIME 01/22/2020 No Stop Date Active allopurinol 300 mg tablet RxNorm: 495324 TAKE ONE TABLET BY LOPEZ TH DAILY 01/22/2020 No Stop Date Active Klor-Con 8 mEq tablet,extended release RxNorm: 278368 T FARRUKH ONE TABLET BY MOUTH TWICE A DAY 01/22/2020 No Stop Date Active doxepin 25 mg capsule RxNorm: 9322367 TAKE ONE CAPSULE B Y MOUTH EVERY NIGHT AT BEDTIME NEEDED FOR SLEEP 01/22/2020 No Stop Date Active glimepiride 4 mg tablet RxNorm: 550808 1 Tablet(s) Oral two times a day replaces 2mg dose 01/13/2020 04/12/2020 Active lisinopril 40 mg tablet RxNorm: 251879 1 Tablet(s) Oral QD repl aces 20mg dose 01/13/2020 04/12/2020 Active hydrocodone 10 mg-acetaminophen 325 mg tablet RxNorm: 354001 1-2 Tablet(s) Oral three times a day as needed for pain 01/12/2020 No Stop Date Active cyclobenzaprine 10 mg tablet RxNorm: 871661 TAKE ONE TA BLET BY MOUTH THREE TIMES A DAY NEEDED FOR MUSCLE SPASMS 01/05/2020 No Stop Date Active triamterene 75 mg-hydrochlorothiazide 50 mg tablet RxNorm: 3 61561 TAKE ONE TABLET BY MOUTH DAILY 12/29/2019 No Stop Date Active Klor-Con 8 mEq tablet,extended release RxNorm: 865504 T FARRUKH ONE TABLET BY MOUTH TWICE A DAY 12/19/2019 01/21/2020 Inactive allopurinol 300 mg tablet RxNorm: 010075 TAKE ONE TABLET BY LOPEZ TH DAILY 12/19/2019 01/21/2020 Inactive glimepiride 2 mg tablet RxNorm: 065056 TAKE ONE TABLET BY MOUTH TWICE A DAY 12/19/2019 01/12/2020 Inactive hydrocodone 10 mg-acetaminophen 325 mg tablet RxNorm: 364702 1-2 Tablet(s) Oral three times a day as needed for pain 12/10/2019 01/11/2020 Inactive Januvia 100 mg tablet RxNorm: 352434 1 Tablet(s) Oral QD 11/20/2019 0 11/20/2019 Inactive glimepiride 2 mg tablet RxNorm: 740508 1 Tablet(s) Oral two sawyer es a day 11/20/2019 12/18/2019 Inactive cyclobenzaprine 10 mg tablet RxNorm: 391961 TAKE ONE TA BLET BY MOUTH THREE TIMES A DAY NEEDED FOR MUSCLE SPASMS 11/17/2019 01/04/2020 Inactive doxepin 25 mg capsule RxNorm: 1575203 TAKE ONE CAPSULE B Y MOUTH EVERY NIGHT AT BEDTIME NEEDED FOR SLEEP 11/16/2019 01/21/2020 Inactive Klor-Con 8 mEq tablet,extended release RxNorm: 631256 T FARRUKH ONE TABLET BY MOUTH TWICE A DAY 11/16/2019 12/18/2019 Inactive hydrocodone 10 mg-acetaminophen 325 mg tablet RxNorm: 318547 1-2 Tablet(s) Oral three times a day as needed for pain 11/10/2019 12/09/2019 Inactive cyclobenzaprine 10 mg tablet RxNorm: 827143 TAKE ONE TA BLET BY MOUTH THREE TIMES A DAY NEEDED FOR MUSCLE SPASMS 10/23/2019 11/16/2019 Inactive duloxetine 60 mg capsule,delayed release RxNorm: 832918 1 Capsu le(s) Oral QD 10/17/2019 04/13/2020 Active Singulair 10 mg tablet RxNorm: 863656 1 Tablet(s) Oral QD 10/17/2019 04/14/2020 Active metoprolol tartrate 100 mg tablet RxNorm: 912506 1 Tabl et(s) Oral two times a day 10/17/2019 04/13/2020 Active clonidine HCl 0.1 mg tablet RxNorm: 481550 1 Tablet(s) Oral fou r times a day 10/17/2019 04/13/2020 Active celecoxib 200 mg capsule RxNorm: 237370 1 Capsule(s) Or al two times a day as needed for pain 10/17/2019 02/15/2020 Inactive lisinopril 20 mg tablet RxNorm: 858913 1 Tablet(s) Oral QD 10/17/19 20 01/12/2020 Inactive gabapentin 300 mg capsule RxNorm: 918859 1 Capsule(s) O ral every night at bedtime 10/17/2019 01/15/2020 Inactive Klor-Con 8 mEq tablet,extended release RxNorm: 193323 1 Tablet(s) Oral two times a day 10/17/2019 11/15/2019 Inactive Januvia 100 mg tablet RxNorm: 255173 1 Tablet(s) Oral QD 10/17/2019 0 01/12/2020 Inactive Lipitor 10 mg tablet RxNorm: 769775 1 Tablet(s) Oral QD 10/17/2019 Inactive Steglatro 15 mg tablet RxNorm: 2191070 1 Tablet(s) Oral QD 10/17/1902/12/2020 Inactive Glyxambi 25 mg-5 mg tablet RxNorm: 1785404 1 Tablet(s) Oral QD 01/202010/16/2019 Inactive Patient will bring in copay discount card as well Glyxambi 25 mg-5 mg tablet RxNorm: 5936797 1 Tablet(s) Oral QD 01/202010/14/2019 Inactive Patient will bring in copay discount card as well Keflex 500 mg capsule RxNorm: 926709 1 Capsule(s) Oral two time s a day 10/07/2019 10/14/2019 Inactive Premarin 1.25 mg tablet RxNorm: 633563 1 Tablet(s) Oral QD 09/30/1902/15/2020 Inactive hydrocodone 10 mg-acetaminophen 325 mg tablet RxNorm: 563111 1-2 Tablet(s) Oral three times a day as needed for pain 09/30/2019 09/30/2019 Inactive baclofen 10 mg tablet RxNorm: 418112 TAKE ONE TABLET BY MOUTH THREE TIMES A DAY NEEDED 09/19/2019 No Stop Date Active gabapentin 300 mg capsule RxNorm: 101194 TAKE ONE CAPSU LE BY MOUTH EVERY NIGHT AT BEDTIME 09/19/2019 10/16/2019 Inactive Klor-Con 8 mEq tablet,extended release RxNorm: 283802 T FARRUKH ONE TABLET BY MOUTH TWICE A DAY 1 Tablet(s) Oral two times a day 09/19/2019 10/16/2019 Renu ctive hydrocodone 10 mg-acetaminophen 325 mg tablet RxNorm: 708414 1-2 Tablet(s) Oral three times a day as needed for pain 09/19/2019 09/29/2019 Inactive duloxetine 60 mg capsule,delayed release RxNorm: 805821 TAKE ONE CAPSULE BY MOUTH DAILY 09/11/2019 10/16/2019 Inactive Lipitor 10 mg tablet RxNorm: 499394 TAKE ONE TABLET BY MOUTH AT BEDTIME 09/11/2019 10/16/2019 Inactive lisinopril 20 mg tablet RxNorm: 961286 TAKE ONE TABLET BY MOUTH DAILY .... THIS REPLACE 10MG TABLETS 09/11/2019 10/16/2019 Inactive triamterene 75 mg-hydrochlorothiazide 50 mg tablet RxNorm: 3 18487 TAKE ONE TABLET BY MOUTH DAILY 09/11/2019 12/28/2019 Inactive allopurinol 300 mg tablet RxNorm: 753229 TAKE ONE TABLET BY LOPEZ TH DAILY 09/11/2019 12/18/2019 Inactive celecoxib 200 mg capsule RxNorm: 688691 TAKE ONE CAPSUL E BY MOUTH TWICE A DAY NEEDED FOR PAIN 09/11/2019 10/16/2019 Inactive clonidine HCl 0.1 mg tablet RxNorm: 544341 TAKE ONE TAB LET BY MOUTH FOUR TIMES A DAY 09/11/2019 10/16/2019 Inactive doxepin 25 mg capsule RxNorm: 7139465 1 Capsule(s) Oral every night at bedtime as needed for sleep 08/21/2019 11/15/2019 Inactive hydrocodone 10 mg-acetaminophen 325 mg tablet RxNorm: 384440 1-2 Tablet(s) PO TID 08/12/2019 09/29/2019 Inactive as needed for pa in - Previous quantity #240, will start dosing for #180 in April [address] Ignacio. Medrol (Dustin) 4 mg tablets in a dose pack RxNorm: 393828 Tablet(s) Oral As Directed 07/21/2019 09/29/2019 Inactive Premarin 1.25 mg tablet RxNorm: 866614 1 Tablet(s) Oral QD 07/02/2009/29/2019 Inactive hydrocodone 10 mg-acetaminophen 325 mg tablet RxNorm: 128970 1-2 Tablet(s) PO TID 07/01/2019 08/11/2019 Inactive as needed for pa in - Previous quantity #240, will start dosing for #180 in April [address] Ignacio. gabapentin 300 mg capsule RxNorm: 271537 1 Capsule(s) PO QHS 201809/18/2019 Inactive celecoxib 200 mg capsule RxNorm: 037605 1 Capsule(s) Or al two times a day as needed for pain 06/27/2019 06/27/2019 Inactive doxepin 25 mg capsule RxNorm: 0342004 TAKE ONE CAPSULE B Y MOUTH EVERY NIGHT AT BEDTIME NEEDED FOR SLEEP 06/24/2019 08/20/2019 Inactive Singulair 10 mg tablet RxNorm: 916995 TAKE ONE TABLET BY MOUTH JOSÉ Y 06/24/2019 10/16/2019 Inactive furosemide 40 mg tablet RxNorm: 171287 TAKE ONE TABLET BY MOUTH EVERY MORNING NEEDED FOR EDEMA . TAKE WITH POTASSIUM 06/24/2019 01/12/2020 Inactive lisinopril 20 mg tablet RxNorm: 309990 TAKE ONE TABLET BY MOUTH DAILY .... THIS REPLACE 10MG TABLETS 06/24/2019 09/10/2019 Inactive nystatin-triamcinolone 100,000 unit/g-0.1 % topical cream Rx Norm: 0480801 1 Application Topical two times a day 06/12/2019 06/19/2019 Inactive apply BID for 1 week nystatin-triamcinolone 100,000 unit/g-0.1 % topical cream Rx Norm: 0559716 1 Application Topical two times a day 06/12/2019 06/11/2019 Inactive apply BID for 1 week hydrocodone 10 mg-acetaminophen 325 mg tablet RxNorm: 919007 1-2 Tablet(s) PO QID as needed for pain MUST LAST 30 DAYS 05/28/2019 06/26/2019 Inactiv e (Response to an electronic controlled substance refill request - RxReferenceNumber: [id number]) baclofen 20 mg tablet RxNorm: 406082 1 Tablet(s) PO TID as needed for muscle spasm 05/19/2019 05/27/2019 Inactive gabapentin 300 mg capsule RxNorm: 580376 1 Capsule(s) PO QHS 201805/27/2019 Inactive lisinopril 20 mg tablet RxNorm: 512299 1 Tablet(s) PO Q D TAKE ONE TABLET BY MOUTH DAILY, REPLACES 10 MG DOSE 05/19/2019 06/23/2019 Inactive doxepin 25 mg capsule RxNorm: 8216253 TAKE ONE CAPSULE B Y MOUTH EVERY NIGHT AT BEDTIME NEEDED FOR SLEEP 05/16/2019 06/14/2019 Inactive lisinopril 20 mg tablet RxNorm: 829816 TAKE ONE TABLET BY MOUTH DAILY, REPLACES 10 MG DOSE 05/16/2019 05/18/2019 Inactive Singulair 10 mg tablet RxNorm: 467503 TAKE ONE TABLET BY MOUTH JOSÉ Y 05/16/2019 06/14/2019 Inactive gabapentin 300 mg capsule RxNorm: 280057 1 Capsule(s) PO QHS 201805/04/2019 Inactive estropipate 1.5 mg tablet RxNorm: 117688 1 Tablet(s) PO QD 05/05/20 19 05/27/2019 Inactive estropipate 1.5 mg tablet RxNorm: 165980 1 Tablet(s) PO QD 05/05/20 19 05/04/2019 Inactive gabapentin 300 mg capsule RxNorm: 563422 1 Capsule(s) PO QHS 201805/18/2019 Inactive hydrocodone 10 mg-acetaminophen 325 mg tablet RxNorm: 682781 1-2 Tablet(s) PO QID as needed for pain MUST LAST 30 DAYS 04/25/2019 05/24/2019 Inactiv e (Response to an electronic controlled substance refill request - RxReferenceNumber: [id number]) cyclobenzaprine 10 mg tablet RxNorm: 591341 TAKE ONE TA BLET BY MOUTH THREE TIMES A DAY NEEDED FOR MUSCLE SPASMS 04/24/2019 05/18/2019 Inactive metoprolol tartrate 100 mg tablet RxNorm: 818477 TAKE O NE TABLET BY MOUTH TWICE A DAY 04/24/2019 10/16/2019 Inactive Lyrica 75 mg capsule RxNorm: 877341 1 Capsule(s) PO QHS 03/25/2019 Inactive duloxetine 60 mg capsule,delayed release RxNorm: 428921 TAKE ONE CAPSULE BY MOUTH DAILY 03/21/2019 05/19/2019 Inactive triamterene 75 mg-hydrochlorothiazide 50 mg tablet RxNorm: 3 42845 TAKE ONE TABLET BY MOUTH DAILY 03/21/2019 05/19/2019 Inactive Klor-Con 8 mEq tablet,extended release RxNorm: 268570 T FARRUKH ONE TABLET BY MOUTH TWICE A DAY 03/21/2019 09/18/2019 Inactive Lipitor 10 mg tablet RxNorm: 471006 TAKE ONE TABLET BY MOUTH AT BEDTIME 03/21/2019 09/10/2019 Inactive clonidine HCl 0.1 mg tablet RxNorm: 706544 TAKE ONE TAB LET BY MOUTH FOUR TIMES A DAY 03/21/2019 05/19/2019 Inactive allopurinol 300 mg tablet RxNorm: 498474 TAKE ONE TABLET BY LOPEZ TH DAILY 03/21/2019 05/19/2019 Inactive hydrocodone 10 mg-acetaminophen 325 mg tablet RxNorm: 980989 1-2 Tablet(s) PO QID as needed for pain MUST LAST 30 DAYS 02/28/2019 03/29/2019 Inactiv e (Response to an electronic controlled substance refill request - [id number]) furosemide 40 mg tablet RxNorm: 330395 TAKE ONE TABLET BY MOUTH EVERY MORNING NEEDED FOR EDEMA . TAKE WITH POTASSIUM 02/21/2019 03/22/2019 Inactive cyclobenzaprine 10 mg tablet RxNorm: 222414 TAKE ONE TA BLET BY MOUTH THREE TIMES A DAY NEEDED FOR MUSCLE SPASMS 02/21/2019 04/21/2019 Inactive lisinopril 20 mg tablet RxNorm: 393534 TAKE ONE TABLET BY MOUTH DAILY, REPLACES 10 MG DOSE 02/21/2019 05/15/2019 Inactive doxepin 25 mg capsule RxNorm: 5261505 TAKE ONE CAPSULE B Y MOUTH EVERY NIGHT AT BEDTIME NEEDED FOR SLEEP 02/21/2019 05/15/2019 Inactive nystatin 100,000 unit/gram topical cream RxNorm: 063026 APPLY TO AFFECTED AREA(S) TWO TIMES A DAY 02/21/2019 03/22/2019 Inactive estradiol 1 mg tablet RxNorm: 035404 2 Tablet(s) PO QD replaces premarin 01/22/2019 05/04/2019 Inactive lisinopril 20 mg tablet RxNorm: 748174 TAKE ONE TABLET BY MOUTH DAILY, REPLACES 10 MG DOSE 01/20/2019 02/18/2019 Inactive cyclobenzaprine 10 mg tablet RxNorm: 790725 TAKE ONE TA BLET BY MOUTH THREE TIMES A DAY NEEDED FOR MUSCLE SPASMS 01/20/2019 02/18/2019 Inactive metoprolol tartrate 100 mg tablet RxNorm: 107631 TAKE O NE TABLET BY MOUTH TWICE A DAY 01/20/2019 02/18/2019 Inactive cyclobenzaprine 10 mg tablet RxNorm: 455163 TAKE ONE TA BLET BY MOUTH THREE TIMES A DAY NEEDED FOR MUSCLE SPASMS 12/19/2018 01/17/2019 Inactive lisinopril 20 mg tablet RxNorm: 853734 TAKE ONE TABLET BY MOUTH DAILY, REPLACES 10 MG DOSE 12/19/2018 01/17/2019 Inactive duloxetine 60 mg capsule,delayed release RxNorm: 583020 TAKE ONE CAPSULE BY MOUTH DAILY 12/19/2018 01/17/2019 Inactive Lipitor 10 mg tablet RxNorm: 272265 TAKE ONE TABLET BY MOUTH AT BEDTIME 12/19/2018 01/17/2019 Inactive cyclobenzaprine 10 mg tablet RxNorm: 970918 1 Tablet(s) PO TID as needed for muscle spasm 11/19/2018 12/18/2018 Inactive Singulair 10 mg tablet RxNorm: 521921 1 Tablet(s) PO QD 11/19/2018 Inactive lisinopril 20 mg tablet RxNorm: 293175 TAKE ONE TABLET BY MOUTH DAILY, REPLACES 10 MG DOSE 11/15/2018 12/18/2018 Inactive hydrocodone 10 mg-acetaminophen 325 mg tablet RxNorm: 127516 1-2 Tablet(s) PO QID as needed for pain MUST LAST 30 DAYS 11/13/2018 12/12/2018 Inactiv e (Response to an electronic controlled substance refill request - RxReferenceNumber: [id number]) nystatin 100,000 unit/gram topical cream RxNorm: 853340 APPLY TO AFFECTED AREA(S) TWO TIMES A DAY 10/23/2018 11/06/2018 Inactive lisinopril 20 mg tablet RxNorm: 133214 1 Tablet(s) PO QD replac es 10mg dose 10/18/2018 11/14/2018 Inactive hydrocodone 10 mg-acetaminophen 325 mg tablet RxNorm: 095960 1-2 Tablet(s) QID as needed for pain MUST LAST 30 DAYS 10/08/2018 11/06/2018 Inactive (Response to an electronic controlled substance refill request - RxReferenceNumber: [id number]) lisinopril 10 mg tablet RxNorm: 575958 1 Tablet(s) PO QD 10/03/2018 0 01/21/2019 Inactive Celebrex 200 mg capsule RxNorm: 832555 TAKE ONE CAPSULE BY MOUT H TWICE A DAY 09/30/2018 05/04/2019 Inactive cyclobenzaprine 10 mg tablet RxNorm: 029022 TAKE ONE TA BLET BY MOUTH THREE TIMES A DAY NEEDED FOR MUSCLE SPASMS 09/30/2018 11/18/2018 Inactive doxepin 25 mg capsule RxNorm: 8958431 TAKE ONE CAPSULE B Y MOUTH EVERY NIGHT AT BEDTIME NEEDED 09/05/2018 10/16/2018 Inactive omeprazole 40 mg capsule,delayed release RxNorm: 650978 TAKE ONE CAPSULE BY MOUTH DAILY 09/05/2018 01/21/2019 Inactive furosemide 40 mg tablet RxNorm: 440017 TAKE ONE TABLET BY MOUTH EVERY MORNING NEEDED FOR EDEMA . TAKE WITH POTASSIUM 09/05/2018 11/03/2018 Inactive phentermine 37.5 mg tablet RxNorm: 040912 1 Tablet(s) PO QAM 201701/21/2019 Inactive doxepin 25 mg capsule RxNorm: 4229524 1 Capsule(s) PO QH S as needed for sleep TAKE ONE CAPSULE BY MOUTH EVERY NIGHT AT BEDTIME NEEDED 08/27/2018 09/04/2018 Inactive Keflex 500 mg capsule RxNorm: 149897 1 Capsule(s) PO TID 08/09/2018 1 10/19/2017 Inactive Diflucan 100 mg tablet RxNorm: 385014 1 Tablet(s) PO QD 08/09/2018 Inactive Premarin 1.25 mg tablet RxNorm: 442477 2 Tablet(s) PO QD 08/09/2018 0 05/04/2019 Inactive Zofran ODT 4 mg disintegrating tablet RxNorm: 709425 1 Tablet(s) PO Q4H as needed for nausea 08/09/2018 01/21/2019 Inactive metoprolol tartrate 100 mg tablet RxNorm: 398493 TAKE O NE TABLET BY MOUTH TWICE A DAY 2018 10/04/2018 Inactive doxepin 25 mg capsule RxNorm: 5915124 TAKE ONE CAPSULE B Y MOUTH EVERY NIGHT AT BEDTIME NEEDED 2018 08/26/2018 Inactive cyclobenzaprine 10 mg tablet RxNorm: 348232 TAKE ONE TA BLET BY MOUTH THREE TIMES A DAY NEEDED FOR MUSCLE SPASMS 2018 09/29/2018 Inactive hydrocodone 10 mg-acetaminophen 325 mg tablet RxNorm: 684500 1-2 Tablet(s) QID as needed for pain MUST LAST 30 DAYS 07/29/2018 08/27/2018 Inactive (Response to an electronic controlled substance refill request - RxReferenceNumber: [id number]) nystatin 100,000 unit/gram topical powder RxNorm: 534165 Applic ation TOP BID 07/22/2018 08/04/2018 Inactive doxepin 25 mg capsule RxNorm: 1244517 1 Capsule(s) PO QHS as needed 07/22/2018 08/05/2018 Inactive triamterene 75 mg-hydrochlorothiazide 50 mg tablet RxNorm: 3 69284 TAKE ONE TABLET BY MOUTH DAILY 07/05/2018 10/02/2018 Inactive duloxetine 60 mg capsule,delayed release RxNorm: 703852 TAKE ONE CAPSULE BY MOUTH DAILY 07/05/2018 09/02/2018 Inactive Klor-Con 8 mEq tablet,extended release RxNorm: 903137 T FARRUKH ONE TABLET BY MOUTH TWICE A DAY 07/05/2018 10/02/2018 Inactive Lipitor 10 mg tablet RxNorm: 639257 TAKE ONE TABLET BY MOUTH AT BEDTIME 07/05/2018 09/02/2018 Inactive allopurinol 300 mg tablet RxNorm: 354840 TAKE ONE TABLET BY LOPEZ TH DAILY 07/05/2018 10/02/2018 Inactive clonidine HCl 0.1 mg tablet RxNorm: 198530 TAKE ONE TAB LET BY MOUTH FOUR TIMES A DAY 07/05/2018 10/02/2018 Inactive hydrocodone 10 mg-acetaminophen 325 mg tablet RxNorm: 300249 1-2 Tablet(s) QID as needed for pain MUST LAST 30 DAYS 06/28/2018 07/27/2018 Inactive (Response to an electronic controlled substance refill request - RxReferenceNumber: [id number]) MediHoney (calcium alginate-honey) 4" X 5" bandage RxNorm: 1 Application TOP QD 06/17/2018 06/26/2018 Inactive honey-hydrocolloid dressing 4" X 5" RxNorm: 1 Application TOP QD 06/17/2018 07/16/2018 Inactive furosemide 40 mg tablet RxNorm: 819090 TAKE ONE TABLET BY MOUTH EVERY MORNING NEEDED FOR EDEMA . TAKE WITH POTASSIUM 06/10/2018 07/09/2018 Inactive This is a refill request. hydrocodone 10 mg-acetaminophen 325 mg tablet RxNorm: 603762 1-2 Tablet(s) QID as needed for pain MUST LAST 30 DAYS 05/30/2018 06/27/2018 Inactive (Response to an electronic controlled substance refill request - RxReferenceNumber: [id number]) acyclovir 800 mg tablet RxNorm: 609372 1 Tablet(s) PO 5x day 201705/22/2018 Inactive Premarin 1.25 mg tablet RxNorm: 406418 1-2 Tablet(s) PO QD 05/15/20 18 07/13/2018 Inactive cyclobenzaprine 10 mg tablet RxNorm: 675795 1 Tablet(s) PO TID as needed for muscle spasm 05/09/2018 05/08/2018 Inactive Medrol (Dustin) 4 mg tablets in a dose pack RxNorm: 514565 Tablet(s) PO As Directed 05/02/2018 06/16/2018 Inactive hydrocodone 10 mg-acetaminophen 325 mg tablet RxNorm: 018087 1-2 Tablet(s) QID as needed for pain MUST LAST 30 DAYS 04/30/2018 05/29/2018 Inactive (Response to an electronic controlled substance refill request - RxReferenceNumber: [id number]) duloxetine 60 mg capsule,delayed release RxNorm: 345785 TAKE ONE CAPSULE BY MOUTH DAILY 04/16/2018 05/15/2018 Inactive Celebrex 200 mg capsule RxNorm: 468307 TAKE ONE CAPSULE BY MOUT H TWICE A DAY 04/16/2018 06/14/2018 Inactive Singulair 10 mg tablet RxNorm: 975738 TAKE ONE TABLET BY MOUTH JOSÉ Y 04/16/2018 11/19/2018 Inactive Lipitor 10 mg tablet RxNorm: 256810 TAKE ONE TABLET BY MOUTH AT BEDTIME 04/16/2018 05/15/2018 Inactive hydrocodone 10 mg-acetaminophen 325 mg tablet RxNorm: 880837 1-2 Tablet(s) QID as needed for pain MUST LAST 30 DAYS 03/29/2018 04/27/2018 Inactive (Response to an electronic controlled substance refill request - RxReferenceNumber: [id number]) cyclobenzaprine 10 mg tablet RxNorm: 469985 1 Tablet(s) PO TID as needed for muscle spasm 03/18/2018 05/09/2018 Inactive omeprazole 40 mg capsule,delayed release RxNorm: 862063 1 Capsu le(s) PO QD 02/26/2018 08/24/2018 Inactive hydrocodone 10 mg-acetaminophen 325 mg tablet RxNorm: 297362 1-2 Tablet(s) QID as needed for pain MUST LAST 30 DAYS 02/26/2018 03/27/2018 Inactive (Response to an electronic controlled substance refill request - RxReferenceNumber: [id number]) metoprolol tartrate 100 mg tablet RxNorm: 587934 1 Tablet(s) PO BID 02/18/2018 08/05/2018 Inactive Lyrica 75 mg capsule RxNorm: 114980 1 Capsule(s) PO QHS 01/30/2018 Inactive phentermine 37.5 mg tablet RxNorm: 589100 1 Tablet(s) PO QAM 201706/16/2018 Inactive hydrocodone 10 mg-acetaminophen 325 mg tablet RxNorm: 830441 1-2 Tablet(s) QID as needed for pain MUST LAST 30 DAYS 01/29/2018 02/25/2018 Inactive (Response to an electronic controlled substance refill request - RxReferenceNumber: [id number]) Klor-Con 8 mEq tablet,extended release RxNorm: 532755 1 Tablet( s) PO BID 01/14/2018 07/04/2018 Inactive allopurinol 300 mg tablet RxNorm: 509275 1 Tablet(s) PO QD 01/15/2007/04/2018 Inactive Lipitor 10 mg tablet RxNorm: 143885 1 Tablet(s) PO QHS 01/14/201812/2017 Inactive triamterene 75 mg-hydrochlorothiazide 50 mg tablet RxNorm: 3 15122 1 Tablet(s) PO QD 01/14/2018 07/04/2018 Inactive hydrocodone 10 mg-acetaminophen 325 mg tablet RxNorm: 847714 1-2 Tablet(s) QID as needed for pain MUST LAST 30 DAYS 12/27/2017 01/25/2018 Inactive (Response to an electronic controlled substance refill request - RxReferenceNumber: [id number]) Onglyza 5 mg tablet RxNorm: 268497 1 Tablet(s) PO QD 12/18/201701/29 Inactive metformin 500 mg tablet RxNorm: 595157 1 Tablet(s) PO BID 12/11/2017 12/10/2017 Inactive metformin 500 mg tablet RxNorm: 185075 1 Tablet(s) PO BID 12/11/2017 12/17/2017 Inactive furosemide 40 mg tablet RxNorm: 215685 1 Tablet(s) PO Q AM prn edema--take with potassium 12/11/2017 06/08/2018 Inactive cyclobenzaprine 10 mg tablet RxNorm: 520226 1 Tablet(s) PO TID as needed for muscle spasm 12/11/2017 03/18/2018 Inactive hydrocodone 10 mg-acetaminophen 325 mg tablet RxNorm: 580626 1-2 Tablet(s) QID as needed for pain MUST LAST 30 DAYS 10/23/2017 11/21/2017 Inactive (Response to an electronic controlled substance refill request - RxReferenceNumber: [id number]) Lipitor 10 mg tablet RxNorm: 913388 1 Tablet(s) PO QHS 10/16/201703/2018 Inactive cyclobenzaprine 10 mg tablet RxNorm: 603424 1 Tablet(s) PO TID as needed for muscle spasm 10/09/2017 12/10/2017 Inactive hydroxyzine HCl 25 mg tablet RxNorm: 923285 1 Tablet(s) PO BID as needed for anxiety 09/20/2017 01/29/2018 Inactive Effexor XR 75 mg capsule,extended release RxNorm: 037723 1 Caps ule(s) PO QD 09/20/2017 01/29/2018 Inactive metoprolol tartrate 100 mg tablet RxNorm: 062212 1 Tablet(s) PO BID 08/20/2017 02/18/2018 Inactive baclofen 20 mg tablet RxNorm: 390124 1 Tablet(s) PO TID as needed for muscle spasm 08/20/2017 01/21/2019 Inactive clonidine HCl 0.1 mg tablet RxNorm: 940624 1 Tablet(s) PO QID 08/2005/16/2018 Inactive Seroquel 25 mg tablet RxNorm: 321137 1 Tablet(s) PO QHS 08/17/2017 Inactive Seroquel 25 mg tablet RxNorm: 020015 1 Tablet(s) PO QHS 08/17/2017 Inactive Diflucan 100 mg tablet RxNorm: 504633 TAKE ONE TABLET BY MOUTH JOSÉ Y 07/25/2017 08/07/2017 Inactive hydrocodone 10 mg-acetaminophen 325 mg tablet RxNorm: 694564 1-2 Tablet(s) QID as needed for pain MUST LAST 30 DAYS 07/19/2017 08/17/2017 Inactive (Response to an electronic controlled substance refill request - RxReferenceNumber: [id number]) clindamycin 300 mg capsule RxNorm: 564787 1 Capsule(s) PO TID 07/1907/28/2017 Inactive clotrimazole-betamethasone 1 %-0.05 % topical cream RxNorm: 908213 Application TOP BID to elbow rash 07/19/2017 06/16/2018 Inactive Singulair 10 mg tablet RxNorm: 820796 Tablet(s) TAKE ONE TABLET BY MOUTH DAILY 07/18/2017 04/13/2018 Inactive triamterene 75 mg-hydrochlorothiazide 50 mg tablet RxNorm: 3 35351 1 Tablet(s) PO QD 07/18/2017 01/14/2018 Inactive Celebrex 200 mg capsule RxNorm: 719830 Capsule(s) TAKE ONE CAPSULE BY MOUTH TWICE A DAY 07/18/2017 10/15/2017 Inactive hydrocodone 10 mg-acetaminophen 325 mg tablet RxNorm: 742908 1-2 Tablet(s) QID as needed for pain MUST LAST 30 DAYS 06/19/2017 07/18/2017 Inactive (Response to an electronic controlled substance refill request - RxReferenceNumber: [id number]) hydrocodone 10 mg-acetaminophen 325 mg tablet RxNorm: 410018 1-2 Tablet(s) QID as needed for pain MUST LAST 30 DAYS 06/19/2017 06/18/2017 Inactive (Response to an electronic controlled substance refill request - RxReferenceNumber: [id number]) baclofen 20 mg tablet RxNorm: 299863 1 Tablet(s) PO TID as needed for muscle spasm 06/18/2017 08/20/2017 Inactive Medrol (Dustin) 4 mg tablets in a dose pack RxNorm: 016557 Tablet(s) PO As Directed 06/05/2017 07/18/2017 Inactive omeprazole 40 mg capsule,delayed release RxNorm: 173319 1 Capsu le(s) PO QD 04/20/2017 10/16/2017 Inactive Premarin 1.25 mg tablet RxNorm: 608958 1-2 Tablet(s) PO QD 04/11/20 17 05/15/2018 Inactive duloxetine 60 mg capsule,delayed release RxNorm: 902046 1 Capsu le(s) PO QD 04/11/2017 09/19/2017 Inactive furosemide 40 mg tablet RxNorm: 289608 1 Tablet(s) PO Q AM prn edema--take with potassium 04/11/2017 12/11/2017 Inactive Klor-Con 8 mEq tablet,extended release RxNorm: 855607 1 Tablet( s) PO BID 04/11/2017 01/14/2018 Inactive Lipitor 10 mg tablet RxNorm: 884836 1 Tablet(s) PO QHS 04/11/201702/2018 Inactive amlodipine 5 mg-benazepril 20 mg capsule RxNorm: 297701 1 Capsu le(s) PO QD 04/11/2017 01/29/2018 Inactive allopurinol 300 mg tablet RxNorm: 189295 1 Tablet(s) PO QD 04/11/20 17 01/14/2018 Inactive clonidine HCl 0.1 mg tablet RxNorm: 310405 1 Tablet(s) PO QID 04/0508/19/2017 Inactive baclofen 20 mg tablet RxNorm: 491432 1 Tablet(s) PO TID as needed for muscle spasm 04/02/2017 06/18/2017 Inactive Premarin 1.25 mg tablet RxNorm: 010798 1-2 Tablet(s) PO QD 03/20/20 17 04/10/2017 Inactive hydrocodone 10 mg-acetaminophen 325 mg tablet RxNorm: 793260 1-2 Tablet(s) QID as needed for pain MUST LAST 30 DAYS 03/14/2017 01/21/2019 Inactive (Response to an electronic controlled substance refill request - RxReferenceNumber: [id number]) metoprolol tartrate 100 mg tablet RxNorm: 840811 1 Tablet(s) PO BID 02/12/2017 08/20/2017 Inactive hydrocodone 10 mg-acetaminophen 325 mg tablet RxNorm: 872005 1-2 Tablet(s) QID as needed for pain MUST LAST 30 DAYS 02/08/2017 03/09/2017 Inactive (Response to an electronic controlled substance refill request - RxReferenceNumber: [id number]) metoprolol tartrate 100 mg tablet RxNorm: 326205 TAKE O NE TABLET BY MOUTH TWICE A DAY 01/11/2017 02/12/2017 Inactive metoprolol tartrate 100 mg tablet RxNorm: 761383 1 Tablet(s) PO BID 12/18/2016 12/17/2016 Inactive metoprolol tartrate 100 mg tablet RxNorm: 848355 1 Tablet(s) PO BID 12/18/2016 01/10/2017 Inactive furosemide 40 mg tablet RxNorm: 580110 1 Tablet(s) PO Q AM prn edema--take with potassium 12/13/2016 02/10/2017 Inactive amitriptyline 100 mg tablet RxNorm: 869029 1 Tablet(s) PO QHS 11/2812/12/2016 Inactive baclofen 20 mg tablet RxNorm: 121842 1 Tablet(s) PO TID as needed for muscle spasm 11/14/2016 04/01/2017 Inactive triamterene 75 mg-hydrochlorothiazide 50 mg tablet RxNorm: 3 87890 1 Tablet(s) PO QD 11/14/2016 11/13/2016 Inactive metolazone 2.5 mg tablet RxNorm: 492962 TAKE ONE TABLET BY MOUTH DAILY NEEDED FOR EDEMA 11/14/2016 12/12/2016 Inactive triamterene 75 mg-hydrochlorothiazide 50 mg tablet RxNorm: 3 02367 1 Tablet(s) PO QD 11/14/2016 07/18/2017 Inactive amitriptyline 50 mg tablet RxNorm: 650937 TAKE ONE TABL ET BY MOUTH AT BEDTIME NEEDED FOR SLEEP 11/14/2016 11/27/2016 Inactive Cymbalta 60 mg capsule,delayed release RxNorm: 997239 1 Capsule (s) PO QHS 11/14/2016 12/12/2016 Inactive clonidine HCl 0.1 mg tablet RxNorm: 044603 1 Tablet(s) PO QID 11/1304/04/2017 Inactive amitriptyline 50 mg tablet RxNorm: 686369 1 Tablet(s) P O QHS as needed for sleep 11/01/2016 11/27/2016 Inactive duloxetine 60 mg capsule,delayed release RxNorm: 900680 TAKE ONE CAPSULE BY MOUTH DAILY 10/20/2016 01/17/2017 Inactive allopurinol 300 mg tablet RxNorm: 739401 TAKE ONE TABLET BY LOPEZ TH DAILY 10/20/2016 01/16/2017 Inactive Lyrica 75 mg capsule RxNorm: 418767 TAKE ONE CAPSULE BY MOUTH EVERY NIGHT AT BEDTIME 10/20/2016 12/10/2016 Inactive Klor-Con 8 mEq tablet,extended release RxNorm: 054707 T FARRUKH ONE TABLET BY MOUTH TWICE A DAY 10/20/2016 01/17/2017 Inactive Celebrex 200 mg capsule RxNorm: 742403 TAKE ONE CAPSULE BY MOUT H TWICE A DAY 10/20/2016 07/18/2017 Inactive Bystolic 10 mg tablet RxNorm: 598895 TAKE ONE TABLET BY MOUTH EVERY NIGHT AT BEDTIME 10/20/2016 12/17/2016 Inactive amlodipine 5 mg-benazepril 20 mg capsule RxNorm: 980504 TAKE ONE CAPSULE BY MOUTH EVERY NIGHT AT BEDTIME -- TO REPLACE AMLODOPINE 10/20/20162016 Inactive Lipitor 10 mg tablet RxNorm: 464841 TAKE ONE TABLET BY MOUTH EVERY NIGHT AT BEDTIME 10/20/2016 01/17/2017 Inactive alprazolam 0.5 mg tablet RxNorm: 626991 3 Tablet(s) PO QHS as needed for sleep/anxiety 09/20/2016 10/31/2016 Inactive Tamiflu 75 mg capsule RxNorm: 008980 1 Capsule(s) PO QD 09/19/2016 Inactive Lyrica 75 mg capsule RxNorm: 957468 1 Capsule(s) PO QHS 09/19/2016 Inactive prednisone 20 mg tablet RxNorm: 868443 1 Tablet(s) PO QD 08/10/2016 1 10/17/2015 Inactive doxycycline hyclate 100 mg capsule RxNorm: 7550257 1 Capsule(s) PO BID 08/10/2016 08/19/2016 Inactive Medrol (Dustin) 4 mg tablets in a dose pack RxNorm: 228301 Tablet(s) PO As Directed 07/31/2016 08/22/2016 Inactive Singulair 10 mg tablet RxNorm: 322773 TAKE ONE TABLET BY MOUTH JOSÉ Y 07/27/2016 07/18/2017 Inactive hydrocodone 10 mg-acetaminophen 325 mg tablet RxNorm: 732306 1-2 Tablet(s) QID as needed for pain MUST LAST 30 DAYS 07/26/2016 08/24/2016 Inactive (Response to an electronic controlled substance refill request - RxReferenceNumber: [id number]) alprazolam 0.5 mg tablet RxNorm: 732782 3 Tablet(s) PO QHS as needed for anxiety or sleep 07/26/2016 09/20/2016 Inactive clindamycin 300 mg capsule RxNorm: 312032 1 Capsule(s) PO TID 07/2007/29/2016 Inactive Diflucan 100 mg tablet RxNorm: 303953 1 Tablet(s) PO QD 07/20/2016 Inactive Levaquin 500 mg tablet RxNorm: 036519 1 Tablet(s) PO QD 07/17/2016 Inactive Levaquin 500 mg tablet RxNorm: 802772 1 Tablet(s) PO QD 07/10/2016 Inactive Levaquin 500 mg tablet RxNorm: 834957 1 Tablet(s) PO QD 07/10/2016 Inactive mupirocin 2 % topical ointment RxNorm: 212997 TOP Apply topically to affected areas twice daily 07/06/2016 09/18/2016 Inactive Singulair 10 mg tablet RxNorm: 753834 TAKE ONE TABLET BY MOUTH JOSÉ Y 06/21/2016 01/21/2019 Inactive alprazolam 0.5 mg tablet RxNorm: 730447 TAKE THREE TABL ETS BY MOUTH AT BEDTIME NEEDED FOR SLEEP OR STRESS 05/22/2016 06/20/2016 Inactive triamterene 75 mg-hydrochlorothiazide 50 mg tablet RxNorm: 3 30022 1 Tablet(s) PO QD 04/26/2016 01/12/2020 Inactive Premarin 1.25 mg tablet RxNorm: 609769 1-2 Tablet(s) PO QD 04/26/20 16 03/20/2017 Inactive Klor-Con 8 mEq tablet,extended release RxNorm: 101556 1 Tablet( s) PO BID 04/26/2016 10/19/2016 Inactive Celebrex 200 mg capsule RxNorm: 655263 1 Capsule(s) PO BID TAKE ONE CAPSULE BY MOUTH EVERY DAY 04/26/2016 10/19/2016 Inactive Lipitor 10 mg tablet RxNorm: 287810 1 Tablet(s) PO QHS 04/26/201605/2017 Inactive allopurinol 300 mg tablet RxNorm: 833341 1 Tablet(s) PO QD TAKE ONE TABLET BY MOUTH EVERY DAY 04/26/2016 10/19/2016 Inactive amlodipine 5 mg-benazepril 20 mg capsule RxNorm: 159263 1 Capsule(s) PO QHS replaces amlodopine 04/26/2016 10/19/2016 Inactive duloxetine 60 mg capsule,delayed release RxNorm: 287693 1 Capsu le(s) PO QD 04/26/2016 10/19/2016 Inactive Bystolic 10 mg tablet RxNorm: 417579 1 Tablet(s) PO QHS 04/26/2016 Inactive Singulair 10 mg tablet RxNorm: 554750 1 Tablet(s) PO QD TAKE ONE TABLET BY MOUTH DAILY 04/26/2016 06/20/2016 Inactive clonidine HCl 0.1 mg tablet RxNorm: 556693 1 Tablet(s) PO QID 04/2610/22/2016 Inactive hydrocodone 10 mg-acetaminophen 325 mg tablet RxNorm: 227834 1-2 Tablet(s) QID as needed for pain TAKE ONE TO TWO TABLETS BY MOUTH FOUR TIMES A DAY . MUST LAST 30 DAYS 03/31/2016 04/29/2016 Inactive (Response to an electronic controlled substance refill request - RxReferenceNumber: [id number]) Klor-Con 8 mEq tablet,extended release RxNorm: 804111 T FARRUKH ONE TABLET BY MOUTH TWICE A DAY 03/24/2016 09/29/2019 Inactive prednisone 20 mg tablet RxNorm: 223163 1 Tablet(s) PO QD 03/09/2016 0 03/08/2016 Inactive prednisone 20 mg tablet RxNorm: 660788 1 Tablet(s) PO QD 03/09/2016 0 03/13/2016 Inactive alprazolam 0.5 mg tablet RxNorm: 254212 3 Tablet(s) PO QHS as needed for sleep/stress 03/02/2016 01/21/2019 Inactive mupirocin 2 % topical ointment RxNorm: 293916 TOP twice daily to affected areas of face and neck 02/21/2016 04/25/2016 Inactive clonidine HCl 0.1 mg tablet RxNorm: 533272 TAKE ONE TAB LET BY MOUTH FOUR TIMES A DAY 02/15/2016 09/29/2019 Inactive clonidine HCl 0.1 mg tablet RxNorm: 160570 1 Tablet(s) PO QID 02/1404/25/2016 Inactive Premarin 1.25 mg tablet RxNorm: 059535 1-2 Tablet(s) PO QD 02/15/20 16 03/15/2016 Inactive Klor-Con 8 mEq tablet,extended release RxNorm: 482093 T FARRUKH ONE TABLET BY MOUTH TWICE A DAY 02/15/2016 03/15/2016 Inactive potassium chloride ER 20 mEq tablet,extended release(part/cr yst) RxNorm: 433656 2 Tablet(s) PO BID 02/15/2016 03/15/2016 Inactive Macrobid 100 mg capsule RxNorm: 177620 1 Capsule(s) PO BID 01/24/20 16 01/30/2016 Inactive prednisone 20 mg tablet RxNorm: 290080 Take 3tabs PO QD x 2 days, then 2 tabs PO QD x 2 days, then 1 tab PO QD x 2 days, then 1/2 tab PO QDy x 2 days 12/23/2015 04/25/2016 Inactive Klor-Con 8 mEq tablet,extended release RxNorm: 913733 T FARRUKH ONE TABLET BY MOUTH TWICE A DAY 12/20/2015 02/14/2016 Inactive alprazolam 1 mg tablet RxNorm: 526095 1 1/2 Tablet(s) PO QHS 201501/23/2016 Inactive nystatin 100,000 unit/gram topical cream RxNorm: 485190 APPLY TO AFFECTED AREA(S) TWO TIMES A DAY 11/30/2015 12/14/2015 Inactive Singulair 10 mg tablet RxNorm: 060293 TAKE ONE TABLET BY MOUTH JOSÉ Y 11/18/2015 04/25/2016 Inactive allopurinol 300 mg tablet RxNorm: 636303 1 Tablet(s) PO QD TAKE ONE TABLET BY MOUTH EVERY DAY 10/26/2015 04/22/2016 Inactive Singulair 10 mg tablet RxNorm: 761225 TAKE ONE TABLET BY MOUTH JOSÉ Y 10/26/2015 11/17/2015 Inactive duloxetine 60 mg capsule,delayed release RxNorm: 521108 1 Capsu le(s) PO QD 10/26/2015 04/22/2016 Inactive triamterene 75 mg-hydrochlorothiazide 50 mg tablet RxNorm: 3 08145 1 Tablet(s) PO QD 10/26/2015 11/14/2016 Inactive potassium chloride ER 20 mEq tablet,extended release(part/cr yst) RxNorm: 373014 2 Tablet(s) PO BID 10/26/2015 02/14/2016 Inactive Lipitor 10 mg tablet RxNorm: 023654 1 Tablet(s) PO QHS 10/26/2015 Inactive amlodipine 5 mg-benazepril 20 mg capsule RxNorm: 588747 1 Capsule(s) PO QHS replaces amlodopine 10/26/2015 04/22/2016 Inactive Bystolic 10 mg tablet RxNorm: 765175 1 Tablet(s) PO QHS 10/26/2015 Inactive amlodipine 5 mg-benazepril 20 mg capsule RxNorm: 974260 1 Capsule(s) PO QHS replaces amlodopine 10/06/2015 10/25/2015 Inactive amlodipine 5 mg tablet RxNorm: 810237 1 Tablet(s) PO QHS 09/30/2015 0 04/25/2016 Inactive metolazone 2.5 mg tablet RxNorm: 980500 TAKE ONE TABLET BY MOUTH DAILY NEEDED FOR EDEMA 09/30/2015 01/21/2019 Inactive duloxetine 60 mg capsule,delayed release RxNorm: 646442 1 Capsu le(s) PO QD 09/30/2015 10/25/2015 Inactive cephalexin 500 mg capsule RxNorm: 963582 1 Capsule(s) PO BID 201509/23/2015 Inactive mupirocin 2 % topical ointment RxNorm: 765635 TOP twice daily to affected areas of face and neck 09/14/2015 02/20/2016 Inactive baclofen 20 mg tablet RxNorm: 074102 1 Tablet(s) PO TID as needed for muscle spasm 09/01/2015 11/14/2016 Inactive clonidine HCl 0.1 mg tablet RxNorm: 055122 1 Tablet(s) PO QID 09/0102/14/2016 Inactive alprazolam 1 mg tablet RxNorm: 532440 1 1/2 Tablet(s) PO QHS 201409/09/2015 Inactive baclofen 20 mg tablet RxNorm: 427785 1 Tablet(s) PO TID as needed for muscle spasm 07/23/2015 09/01/2015 Inactive omeprazole 40 mg capsule,delayed release RxNorm: 569882 1 Capsu le(s) PO QD 07/23/2015 04/25/2016 Inactive alprazolam 1 mg tablet RxNorm: 626360 1 1/2 Tablet(s) PO QHS 201408/10/2015 Inactive Bystolic 10 mg tablet RxNorm: 519930 1 Tablet(s) PO BID 06/24/2015 Inactive allopurinol 300 mg tablet RxNorm: 902099 1 Tablet(s) PO QD TAKE ONE TABLET BY MOUTH EVERY DAY 06/23/2015 10/20/2015 Inactive alprazolam 1 mg tablet RxNorm: 512929 1 1/2 Tablet(s) PO QHS 201407/06/2015 Inactive clonidine HCl 0.1 mg tablet RxNorm: 387810 1 Tablet(s) PO QID 06/0209/01/2015 Inactive clonidine HCl 0.1 mg tablet RxNorm: 006494 1 Tablet(s) PO QID 06/0206/01/2015 Inactive Cymbalta 60 mg capsule,delayed release RxNorm: 223813 1 Capsule (s) PO QHS 06/02/2015 08/30/2015 Inactive Cymbalta 60 mg capsule,delayed release RxNorm: 289750 1 Capsule (s) PO QHS 06/02/2015 06/01/2015 Inactive clonidine HCl 0.1 mg tablet RxNorm: 345896 1 Tablet(s) PO TID 05/3106/01/2015 Inactive replaces 0.2mg dose metolazone 2.5 mg tablet RxNorm: 608719 TAKE ONE TABLET BY MOUTH DAILY NEEDED FOR EDEMA 05/21/2015 06/19/2015 Inactive Singulair 10 mg tablet RxNorm: 299705 TAKE ONE TABLET BY MOUTH JOSÉ Y 05/21/2015 10/17/2015 Inactive Cymbalta 30 mg capsule,delayed release RxNorm: 233890 1 Capsule (s) PO QHS 05/20/2015 11/14/2016 Inactive betamethasone valerate 0.1 % topical cream RxNorm: 183927 Appli cation TOP BID 05/10/2015 04/25/2016 Inactive Bactroban 2 % topical ointment RxNorm: 826368 Application TOP BID 0 05/10/2015 06/20/2015 Inactive baclofen 20 mg tablet RxNorm: 377656 1 Tablet(s) PO TID as needed 0 04/26/2015 07/23/2015 Inactive Lipitor 10 mg tablet RxNorm: 229302 1 Tablet(s) PO QHS 04/26/201508/2016 Inactive clonidine HCl 0.1 mg tablet RxNorm: 526261 1 Tablet(s) PO TID 04/2605/30/2015 Inactive replaces 0.2mg dose Klor-Con 8 mEq tablet,extended release RxNorm: 183815 1 Tablet( s) PO BID 04/26/2015 04/25/2016 Inactive metolazone 2.5 mg tablet RxNorm: 708259 1 Tablet(s) PO QD as ne eded for edema 04/26/2015 04/25/2015 Inactive triamterene 75 mg-hydrochlorothiazide 50 mg tablet RxNorm: 3 97663 1 Tablet(s) PO QD 04/26/2015 10/22/2015 Inactive Premarin 1.25 mg tablet RxNorm: 256821 1-2 Tablet(s) PO QD 04/26/20 15 10/22/2015 Inactive Bystolic 10 mg tablet RxNorm: 849903 1 Tablet(s) PO QAM TAKE ONE TABLET BY MOUTH EVERY MORNING 04/23/2015 06/23/2015 Inactive clonidine HCl 0.1 mg tablet RxNorm: 162418 1 Tablet(s) PO TID 03/2304/25/2015 Inactive replaces 0.2mg dose nystatin 100,000 unit/gram topical cream RxNorm: 442195 Applica tion TOP BID 03/23/2015 06/20/2015 Inactive baclofen 20 mg tablet RxNorm: 246459 1 Tablet(s) PO TID as needed 0 03/23/2015 04/25/2015 Inactive Premarin 1.25 mg tablet RxNorm: 902564 1-2 Tablet(s) PO QD 03/23/20 15 04/25/2015 Inactive Klor-Con 8 mEq tablet,extended release RxNorm: 506536 1 Tablet( s) PO BID 03/23/2015 04/25/2015 Inactive cefdinir 300 mg capsule RxNorm: 989666 2 Capsule(s) PO QD 03/16/2015 03/25/2015 Inactive baclofen 20 mg tablet RxNorm: 145926 1 Tablet(s) PO TID as needed 0 03/02/2015 03/22/2015 Inactive allopurinol 300 mg tablet RxNorm: 635763 1 Tablet(s) PO QD TAKE ONE TABLET BY MOUTH EVERY DAY 02/22/2015 05/22/2015 Inactive Klor-Con M20 mEq tablet,extended release RxNorm: 521846 2 Tablet(s) PO BID to use with lasix 02/22/2015 06/20/2015 Inactive clonidine HCl 0.1 mg tablet RxNorm: 048601 1 Tablet(s) PO TID 02/1903/22/2015 Inactive replaces 0.2mg dose Lipitor 10 mg tablet RxNorm: 817512 1 Tablet(s) PO QHS 01/20/201506/2015 Inactive Lipitor 10 mg tablet RxNorm: 763665 1 Tablet(s) PO QHS 01/20/2015 Inactive Singulair 10 mg tablet RxNorm: 272476 1 Tablet(s) PO QD TAKE ONE TABLET BY MOUTH EVERY DAY 11/20/2014 05/18/2015 Inactive Lipitor 10 mg tablet RxNorm: 760220 1 Tablet(s) PO QHS 11/20/201408/2015 Inactive allopurinol 300 mg tablet RxNorm: 233540 1 Tablet(s) PO QD TAKE ONE TABLET BY MOUTH EVERY DAY 11/20/2014 02/16/2015 Inactive Bystolic 10 mg tablet RxNorm: 597584 1 Tablet(s) PO QAM TAKE ONE TABLET BY MOUTH EVERY MORNING 11/20/2014 04/22/2015 Inactive Klor-Con 8 mEq tablet,extended release RxNorm: 700479 1 Tablet( s) PO BID 11/20/2014 02/17/2015 Inactive baclofen 20 mg tablet RxNorm: 335872 1 Tablet(s) PO TID as needed 0 11/20/2014 01/21/2019 Inactive baclofen 20 mg tablet RxNorm: 220798 1 Tablet(s) PO TID as needed 0 10/27/2014 11/19/2014 Inactive baclofen 20 mg tablet RxNorm: 875824 1 Tablet(s) PO TID as needed 0 10/26/2014 03/01/2015 Inactive allopurinol 300 mg tablet RxNorm: 096959 1 Tablet(s) PO QD TAKE ONE TABLET BY MOUTH EVERY DAY 10/26/2014 11/20/2014 Inactive Bystolic 10 mg tablet RxNorm: 463449 1 Tablet(s) PO QAM TAKE ONE TABLET BY MOUTH EVERY MORNING 10/26/2014 11/20/2014 Inactive clonidine HCl 0.1 mg tablet RxNorm: 472636 1 Tablet(s) PO TID 09/2805/27/2019 Inactive replaces 0.2mg dose clonidine HCl 0.1 mg tablet RxNorm: 538697 1 Tablet(s) PO TID 09/2802/18/2015 Inactive replaces 0.2mg dose baclofen 20 mg tablet RxNorm: 714533 1 Tablet(s) PO TID as needed 1 11/01/2013 08/30/2014 Inactive Lipitor 10 mg tablet RxNorm: 728948 1 Tablet(s) PO QHS 08/31/2014 Inactive baclofen 20 mg tablet RxNorm: 396553 1 Tablet(s) PO TID as needed 1 11/01/2013 10/26/2014 Inactive triamterene 75 mg-hydrochlorothiazide 50 mg tablet RxNorm: 3 49548 1 Tablet(s) PO QD 08/31/2014 02/26/2015 Inactive Klor-Con 8 mEq tablet,extended release RxNorm: 765901 1 Tablet( s) PO BID 08/31/2014 11/20/2014 Inactive baclofen 20 mg tablet RxNorm: 890333 1 Tablet(s) PO TID as needed 1 09/30/2013 10/25/2014 Inactive baclofen 20 mg tablet RxNorm: 949245 1 Tablet(s) PO TID as needed 1 09/30/2013 08/31/2014 Inactive omeprazole 40 mg capsule,delayed release RxNorm: 107541 1 Capsu le(s) PO QD 07/21/2014 07/23/2015 Inactive Flonase 50 mcg/actuation nasal spray,suspension RxNorm: 8963 23 1 [place] NASAL BID 07/15/2014 04/09/2017 Inactive hydrocodone 10 mg-acetaminophen 325 mg tablet RxNorm: 333655 1-2 Tablet(s) QID as needed for pain TAKE ONE TO TWO TABLETS BY MOUTH FOUR TIMES A DAY . MUST LAST 30 DAYS 06/30/2014 07/27/2014 Inactive (Response to an electronic controlled substance refill request - RxReferenceNumber: [id number]) baclofen 20 mg tablet RxNorm: 207375 1 Tablet(s) PO TID as needed 1 07/31/2014 Inactive Singulair 10 mg tablet RxNorm: 940335 1 Tablet(s) PO QD TAKE ONE TABLET BY MOUTH EVERY DAY 05/25/2014 11/20/2014 Inactive Bystolic 10 mg tablet RxNorm: 678971 TAKE ONE TABLET BY MOUTH E VERY MORNING 05/25/2014 09/21/2014 Inactive allopurinol 300 mg tablet RxNorm: 242382 1 Tablet(s) PO QD TAKE ONE TABLET BY MOUTH EVERY DAY 05/25/2014 10/21/2014 Inactive baclofen 20 mg tablet RxNorm: 505580 1 Tablet(s) PO TID as needed 0 05/25/2014 06/29/2014 Inactive allopurinol 300 mg tablet RxNorm: 807947 TAKE ONE TABLET BY LOPEZ TH EVERY DAY 05/25/2014 09/21/2014 Inactive Singulair 10 mg tablet RxNorm: 388780 1 Tablet(s) PO QD TAKE ONE TABLET BY MOUTH EVERY DAY 05/25/2014 05/24/2014 Inactive Bystolic 10 mg tablet RxNorm: 960683 1 Tablet(s) PO QAM TAKE ONE TABLET BY MOUTH EVERY MORNING 05/25/2014 10/21/2014 Inactive metolazone 2.5 mg tablet RxNorm: 368013 1 Tablet(s) PO QD as ne eded for edema 05/18/2014 04/25/2015 Inactive Lasix 40 mg tablet RxNorm: 081534 1 Tablet(s) PO QAM s hould take potassium supplementation with this medication 05/14/2014 05/17/2014 Inactive hydrocodone 10 mg-acetaminophen 325 mg tablet RxNorm: 120091 1-2 Tablet(s) QID as needed for pain TAKE ONE TO TWO TABLETS BY MOUTH FOUR TIMES A DAY . MUST LAST 30 DAYS 05/07/2014 06/05/2014 Inactive (Response to an electronic controlled substance refill request - RxReferenceNumber: [id number]) alprazolam 0.5 mg tablet RxNorm: 915706 TAKE ONE TABLET BY MOUTH TWICE A DAY , MUST LAST 30 DAYS 05/07/2014 05/22/2016 Inactive (Response to a n electronic controlled substance refill request - RxReferenceNumber: [id number]) diclofenac sodium 75 mg tablet,delayed release RxNorm: 75806 6 1 Tablet(s) PO BID for pain 04/24/2014 07/20/2014 Inactive Celebrex 200 mg capsule RxNorm: 269007 TAKE ONE CAPSULE BY MOUT H EVERY DAY 04/24/2014 07/20/2014 Inactive alprazolam 0.5 mg tablet RxNorm: 125471 TAKE ONE TABLET BY MOUTH TWICE A DAY , MUST LAST 30 DAYS 03/24/2014 04/22/2014 Inactive (Response to a n electronic controlled substance refill request - RxReferenceNumber: [id number]) diclofenac sodium 75 mg tablet,delayed release RxNorm: 57867 6 1 Tablet(s) PO BID for pain 03/24/2014 04/24/2014 Inactive clonidine HCl 0.1 mg tablet RxNorm: 366744 1 Tablet(s) PO TID 03/2409/28/2014 Inactive replaces 0.2mg dose Klor-Con 8 mEq tablet,extended release RxNorm: 385727 1 Tablet( s) PO BID 02/26/2014 08/31/2014 Inactive diclofenac sodium 75 mg tablet,delayed release RxNorm: 51999 6 1 Tablet(s) PO BID for pain 02/25/2014 03/24/2014 Inactive hydrocodone 10 mg-acetaminophen 325 mg tablet RxNorm: 469930 1-2 Tablet(s) QID as needed for pain TAKE ONE TO TWO TABLETS BY MOUTH FOUR TIMES A DAY . MUST LAST 30 DAYS 02/25/2014 03/26/2014 Inactive (Response to an electronic controlled substance refill request - RxReferenceNumber: [id number]) alprazolam 0.5 mg tablet RxNorm: 854833 Tablet(s) PO BI D as needed for anxiety TAKE ONE TABLET BY MOUTH TWICE A DAY , MUST LAST 30 DAYS 02/25/2014 Inactive (Response to an electronic controlled [place] bstance refill request - RxReferenceNumber: [id number]) [AttnRPh: Saving apply/adjudicate RxGRP:SG20 RxBIN:[id number] RxPCN: ID#:[id number]] alprazolam 0.5 mg tablet RxNorm: 637439 Tablet(s) TAKE ONE TABLET BY MOUTH TWICE A DAY , MUST LAST 30 DAYS 01/27/2014 02/24/2014 Inactive (Respo nse to an electronic controlled substance refill request - RxReferenceNumber: [id number]) [AttnRPh: Saving apply/adjudicate RxGRP:SG20 RxBIN:[id number] RxPCN: ID#:[id number]] hydrocodone 10 mg-acetaminophen 325 mg tablet RxNorm: 690746 1-2 Tablet(s) QID as needed for pain TAKE ONE TO TWO TABLETS BY MOUTH FOUR TIMES A DAY . MUST LAST 30 DAYS 01/27/2014 02/24/2014 Inactive (Response to an electronic controlled substance refill request - RxReferenceNumber: [id number]) alprazolam 0.5 mg tablet RxNorm: 347160 TAKE ONE TABLET BY MOUTH TWICE A DAY , MUST LAST 30 DAYS 01/27/2014 01/26/2014 Inactive (Response to a n electronic controlled substance refill request - RxReferenceNumber: [id number]) Premarin 1.25 mg tablet RxNorm: 661583 1-2 Tablet(s) PO QD 01/28/20 14 07/25/2014 Inactive alprazolam 0.5 mg tablet RxNorm: 932749 TAKE ONE TABLET BY MOUTH TWICE A DAY , MUST LAST 30 DAYS 01/27/2014 01/27/2014 Inactive (Response to a n electronic controlled substance refill request - RxReferenceNumber: [id number]) hydrocodone 10 mg-acetaminophen 325 mg tablet RxNorm: 303837 TAKE ONE TO TWO TABLETS BY MOUTH FOUR TIMES A DAY . MUST LAST 30 DAYS 01/27/20142013 Inactive (Response to an electronic controlled [place] bstance refill request - RxReferenceNumber: [id number]) Celebrex 200 mg capsule RxNorm: 965129 1 Capsule(s) PO QD TAKE ONE CAPSULE BY MOUTH EVERY DAY 12/29/2013 04/27/2014 Inactive hydrocodone 10 mg-acetaminophen 325 mg tablet RxNorm: 158212 1-2 Tablet(s) PO QID as needed for severe pain 12/29/2013 01/27/2014 Inactive allopurinol 300 mg tablet RxNorm: 874392 1 Tablet(s) PO QD TAKE ONE TABLET BY MOUTH EVERY DAY 12/29/2013 05/24/2014 Inactive alprazolam 0.5 mg tablet RxNorm: 985130 TAKE ONE TABLET BY MOUTH TWICE A DAY , MUST LAST 30 DAYS 12/29/2013 01/27/2014 Inactive (Response to a n electronic controlled substance refill request - RxReferenceNumber: [id number]) Celebrex 200 mg capsule RxNorm: 798058 1 Capsule(s) PO QD TAKE ONE CAPSULE BY MOUTH EVERY DAY 12/29/2013 12/29/2013 Inactive Bystolic 10 mg tablet RxNorm: 750293 1 Tablet(s) PO QAM TAKE ONE TABLET BY MOUTH EVERY MORNING 12/29/2013 05/24/2014 Inactive Bystolic 10 mg tablet RxNorm: 642225 1 Tablet(s) PO QAM TAKE ONE TABLET BY MOUTH EVERY MORNING 12/29/2013 12/29/2013 Inactive Singulair 10 mg tablet RxNorm: 702103 1 Tablet(s) PO QD TAKE ONE TABLET BY MOUTH EVERY DAY 12/29/2013 05/25/2014 Inactive hydrocodone 10 mg-acetaminophen 325 mg tablet RxNorm: 077661 TAKE ONE TO TWO TABLETS BY MOUTH FOUR TIMES A DAY . MUST LAST 30 DAYS 12/29/20132013 Inactive (Response to an electronic controlled cornell bstance refill request - RxReferenceNumber: [id number]) Trazadone 75mg Tablet RxNorm: 1 Tablet(s) PO QHS as needed 03/23/2014 Inactive Trazadone 75mg Tablet RxNorm: 1 Tablet(s) PO QHS 12/24/20132014 Inactive Soma 350 mg tablet RxNorm: 063801 Tablet(s) PO TAKE ON E TABLET BY MOUTH THREE TIMES A DAY NEEDED FOR MUSCLE SPASMS. THIS MUST LAST 30 DAYS BETWEEN REFILLS. 12/10/2013 12/22/2013 Inactive (Appended: Cont rolled substance eRx refill - RxReferenceNumber: [id number]) diclofenac sodium 75 mg tablet,delayed release RxNorm: 54967 6 1 Tablet(s) PO BID for pain 12/10/2013 02/24/2014 Inactive allopurinol 300 mg tablet RxNorm: 717869 1 Tablet(s) PO QD 11/20/19 14 12/29/2013 Inactive alprazolam 0.5 mg tablet RxNorm: 862897 2 Tablet(s) PO BID 11/13/19 14 12/29/2013 Inactive prn clonidine 0.1 mg tablet RxNorm: 192325 1 Tablet(s) PO TID 11/12/2013 02/09/2014 Inactive replaces 0.2mg dose Klor-Con M20 mEq tablet,extended release RxNorm: 601484 2 Tablet(s) PO BID to use with lasix 11/12/2013 05/10/2014 Inactive Singulair 10 mg tablet RxNorm: 999041 1 Tablet(s) PO QD 11/12/2013 Inactive hydrocodone 10 mg-acetaminophen 325 mg tablet RxNorm: 056591 1-2 Tablet(s) PO QID as needed for severe pain 11/12/2013 12/28/2013 Inactive Bystolic 10 mg tablet RxNorm: 613563 1 Tablet(s) PO QAM 11/12/2013 Inactive Soma 350 mg tablet RxNorm: 966367 Tablet(s) PO TAKE ON E TABLET BY MOUTH THREE TIMES A DAY NEEDED FOR MUSCLE SPASMS. THIS MUST LAST 30 DAYS BETWEEN REFILLS. 10/13/2013 12/10/2013 Inactive (Appended: Cont rolled substance eRx refill - RxReferenceNumber: [id number]) hydrocodone 10 mg-acetaminophen 325 mg tablet RxNorm: 914332 1-2 Tablet(s) PO QID as needed for severe pain 10/03/2013 11/11/2013 Inactive diclofenac sodium 75 mg tablet,delayed release RxNorm: 14530 8 1 Tablet(s) PO BID for pain 09/11/2013 12/10/2013 Inactive alprazolam 0.5 mg tablet RxNorm: 599755 1 Tablet(s) PO BID May refill on 04/26/13 09/01/2013 10/30/2013 Inactive prn hydrocodone 10 mg-acetaminophen 325 mg tablet RxNorm: 999638 1-2 Tablet(s) PO QID as needed for severe pain 09/01/2013 10/02/2013 Inactive triamterene 75 mg-hydrochlorothiazide 50 mg tablet RxNorm: 3 87369 1 Tablet(s) PO QD 08/04/2013 08/31/2014 Inactive cyclobenzaprine 10 mg tablet RxNorm: 354776 1 Tablet(s) PO TID prn spasm 08/04/2013 08/13/2013 Inactive clonidine 0.1 mg tablet RxNorm: 138294 1 Tablet(s) PO TID 08/04/2013 11/11/2013 Inactive replaces 0.2mg dose cyclobenzaprine 10 mg tablet RxNorm: 381031 1 Tablet(s) PO TID prn spasm 07/23/2013 08/01/2013 Inactive hydrocodone 10 mg-acetaminophen 325 mg tablet RxNorm: 550065 2 1-2 Tablet(s) PO QID as needed for severe pain 06/09/2013 08/07/2013 Inactive Singulair 10 mg tablet RxNorm: 651836 1 Tablet(s) PO QD 05/29/2013 Inactive Klor-Con 8 mEq tablet,extended release RxNorm: 769063 1 Tablet( s) PO BID 05/29/2013 02/26/2014 Inactive allopurinol 300 mg tablet RxNorm: 107710 1 Tablet(s) PO QD 05/29/2011/19/2013 Inactive Bystolic 10 mg tablet RxNorm: 808929 1 Tablet(s) PO QAM take one daily in the morning. 05/29/2013 11/11/2013 Inactive scopolamine 1.5 mg 72 hr Transderm Patch RxNorm: 451387 Application TD Q72H for motion sickness 05/26/2013 07/22/2013 Inactive Soma 350 mg tablet RxNorm: 992534 1 Tablet(s) PO TID as needed for spasm 05/19/2013 10/13/2013 Inactive diclofenac sodium 75 mg tablet,delayed release RxNorm: 87395 8 1 Tablet(s) PO BID for pain 05/14/2013 07/22/2013 Inactive allopurinol 300 mg tablet RxNorm: 468346 1 Tablet(s) PO QD 04/25/20 13 05/28/2013 Inactive alprazolam 0.5 mg tablet RxNorm: 263569 1 Tablet(s) PO BID May refill on 04/26/13 04/25/2013 06/23/2013 Inactive prn Celebrex 200 mg capsule RxNorm: 837635 1 Capsule(s) PO QD 04/16/2013 12/29/2013 Inactive alprazolam 0.5 mg tablet RxNorm: 237384 1 Tablet(s) PO BID May refill on 04/26/13 04/16/2013 04/24/2013 Inactive prn Soma 350 mg tablet RxNorm: 154922 1 Tablet(s) PO TID as needed for spasm 04/16/2013 No Stop Date Active Lasix 40 mg tablet RxNorm: 473015 1 Tablet(s) PO QAM alan hould take potassium supplementation with this medication 04/16/2013 06/14/2013 Inactive clonidine 0.1 mg tablet RxNorm: 296770 1 Tablet(s) PO TID 04/16/2013 08/03/2013 Inactive replaces 0.2mg dose prednisone 20 mg tablet RxNorm: 434401 1 Tablet(s) PO BID 04/16/2013 04/20/2013 Inactive diclofenac sodium 75 mg tablet,delayed release RxNorm: 35038 8 1 Tablet(s) PO BID for pain 04/14/2013 05/13/2013 Inactive hydrocodone 10 mg-acetaminophen 325 mg tablet RxNorm: 603074 2 1-2 Tablet(s) PO QID as needed for severe pain 04/14/2013 No Stop Date Active Lasix 40 mg tablet RxNorm: 731393 1 Tablet(s) PO QAM s hould take potassium supplementation with this medication 03/31/2013 04/15/2013 Inactive Celebrex 200 mg capsule RxNorm: 266718 1 Capsule(s) PO QD 03/31/2013 04/15/2013 Inactive alprazolam 0.5 mg tablet RxNorm: 175145 1 Tablet(s) PO BID 03/28/20 13 04/15/2013 Inactive prn hydrocodone 10 mg-acetaminophen 325 mg tablet RxNorm: 630294 2 1-2 Tablet(s) PO QID as needed for severe pain 03/10/2013 No Stop Date Active metformin ER 500 mg 24 hr tablet,extended release RxNorm: 86 1018 1 Tablet(s) PO QD 03/06/2013 07/22/2013 Inactive clindamycin 300 mg capsule RxNorm: 325578 2 Capsule(s) PO TID 03/0503/14/2013 Inactive Zaroxolyn 2.5 mg tablet RxNorm: 319489 1 Tablet(s) PO QAM 03/05/2013 05/19/2015 Inactive amlodipine 10 mg tablet RxNorm: 835409 1 Tablet(s) PO QD 03/03/2013 0 05/25/2013 Inactive Norvasc 10 mg tablet RxNorm: 088249 1 Tablet(s) PO QD 02/28/201307/11 Inactive Celebrex 200 mg capsule RxNorm: 116891 1 Capsule(s) PO QD 02/28/2013 03/30/2013 Inactive diclofenac sodium 75 mg tablet,delayed release RxNorm: 68777 8 1 Tablet(s) PO BID for pain 02/14/2013 03/15/2013 Inactive Soma 350 mg tablet RxNorm: 575779 1 Tablet(s) PO TID as needed for spasm 02/14/2013 No Stop Date Active hydrocodone 10 mg-acetaminophen 325 mg tablet RxNorm: 091609 2 1-2 Tablet(s) PO QID as needed for severe pain 02/14/2013 No Stop Date Active Norvasc 10 mg tablet RxNorm: 204750 1 Tablet(s) PO QD 02/10/201302/09 Inactive Celebrex 200 mg capsule RxNorm: 801652 1 Capsule(s) PO QD 01/27/2013 01/26/2013 Inactive Premarin 1.25 mg tablet RxNorm: 267491 1-2 Tablet(s) PO QD 01/28/20 13 06/25/2013 Inactive alprazolam 0.5 mg tablet RxNorm: 586204 1 Tablet(s) PO BID 01/28/20 13 02/25/2013 Inactive prn amlodipine 5 mg tablet RxNorm: 703563 1 Tablet(s) PO QD 01/27/2013 Inactive Celebrex 200 mg capsule RxNorm: 479575 1 Capsule(s) PO QD 01/27/2013 02/27/2013 Inactive gabapentin 600 mg tablet RxNorm: 968648 1 Tablet(s) PO QHS 01/16/20 13 07/22/2013 Inactive Soma 350 mg tablet RxNorm: 379538 1 Tablet(s) PO TID as needed for spasm 01/15/2013 No Stop Date Active hydrocodone 10 mg-acetaminophen 325 mg tablet RxNorm: 957652 2 1-2 Tablet(s) PO QID as needed for severe pain 01/15/2013 No Stop Date Active Soma 350 mg tablet RxNorm: 129331 1 Tablet(s) PO TID as needed for spasm 01/13/2013 No Stop Date Active alprazolam 0.5 mg tablet RxNorm: 679242 1 Tablet(s) PO BID 12/31/19 13 01/26/2013 Inactive prn diclofenac sodium 75 mg tablet,delayed release RxNorm: 91203 8 1 Tablet(s) PO BID for pain 12/09/2012 01/07/2013 Inactive gabapentin 600 mg tablet RxNorm: 651480 1 Tablet(s) PO QHS 12/10/19 13 01/07/2013 Inactive hydrocodone 10 mg-acetaminophen 325 mg tablet RxNorm: 694051 2 1-2 Tablet(s) PO QID as needed for severe pain 12/02/2012 No Stop Date Active Levaquin 750 mg tablet RxNorm: 448086 1 Tablet(s) PO QD 11/21/2012 Inactive Singulair 10 mg tablet RxNorm: 829677 1 Tablet(s) PO QD 11/11/2012 Inactive clonidine 0.2 mg tablet RxNorm: 706880 1 Tablet(s) PO TID 11/11/2012 04/15/2013 Inactive alprazolam 0.5 mg tablet RxNorm: 982662 1 Tablet(s) PO BID 11/12/19 13 12/10/2012 Inactive prn Klor-Con 8 mEq tablet,extended release RxNorm: 090811 1 Tablet( s) PO BID 11/11/2012 03/04/2013 Inactive hydrocodone 10 mg-acetaminophen 325 mg tablet RxNorm: 506075 2 1-2 Tablet(s) PO QID as needed for severe pain 11/06/2012 No Stop Date Active alprazolam 0.5 mg tablet RxNorm: 072240 1 Tablet(s) PO BID 10/15/19 13 11/10/2012 Inactive prn hydrocodone-acetaminophen 10 mg-325 mg tablet RxNorm: 138892 2 1-2 Tablet(s) PO QID as needed for severe pain 10/10/2012 10/09/2012 Inactive allopurinol 300 mg tablet RxNorm: 368689 1 Tablet(s) PO QD 09/20/19 13 12/18/2012 Inactive alprazolam 0.5 mg tablet RxNorm: 266661 1 Tablet(s) PO BID 09/17/19 13 10/14/2012 Inactive prn hydrocodone-acetaminophen 10 mg-325 mg tablet RxNorm: 843653 2 1-2 Tablet(s) PO QID as needed for severe pain 08/22/2012 08/21/2012 Inactive Norvasc 10 mg tablet RxNorm: 730984 1 Tablet(s) PO QD 08/12/201201/10 Inactive Premarin 1.25 mg tablet RxNorm: 421675 1-2 Tablet(s) PO QD 07/30/20 12 12/26/2012 Inactive alprazolam 0.5 mg tablet RxNorm: 213407 1 Tablet(s) PO BID 07/29/20 12 08/27/2012 Inactive prn Klor-Con 8 mEq tablet,extended release RxNorm: 967045 1 Tablet( s) PO BID 07/29/2012 11/10/2012 Inactive hydrocodone-acetaminophen 10 mg-325 mg tablet RxNorm: 410791 2 1-2 Tablet(s) PO QID as needed for severe pain 07/29/2012 No Stop Date Active Premarin 1.25 mg tablet RxNorm: 940762 1-2 Tablet(s) PO QD 07/29/20 12 07/29/2012 Inactive clonidine 0.2 mg tablet RxNorm: 018755 1 Tablet(s) PO TID 07/29/2012 10/28/2012 Inactive ketorolac 10 mg tablet RxNorm: 243150 1 Tablet(s) PO QID prn he adache 07/18/2012 No Stop Date Active hydrocodone-acetaminophen 10 mg-325 mg tablet RxNorm: 265715 2 1-2 Tablet(s) PO QID as needed for severe pain 07/03/2012 No Stop Date Active amlodipine 5 mg tablet RxNorm: 699224 1 Tablet(s) PO QD 07/02/2012 Inactive allopurinol 300 mg tablet RxNorm: 600626 1 Tablet(s) PO QD 07/02/20 12 09/19/2012 Inactive Celebrex 200 mg capsule RxNorm: 283676 1 Capsule(s) PO QD for j oint pain 06/26/2012 10/23/2012 Inactive diclofenac sodium 75 mg tablet,delayed release RxNorm: 08261 8 1 Tablet(s) PO BID for pain 06/19/2012 09/16/2012 Inactive hydrocodone-acetaminophen 10 mg-325 mg tablet RxNorm: 252321 2 1-2 Tablet(s) PO QID as needed for severe pain 06/10/2012 No Stop Date Active alprazolam 0.5 mg tablet RxNorm: 193039 1 Tablet(s) PO BID 06/03/20 12 07/02/2012 Inactive prn ketorolac 10 mg tablet RxNorm: 868878 1 Tablet(s) PO Q8H 05/27/2012 0 01/21/2019 Inactive as needed for headache hydrocodone-acetaminophen 10 mg-325 mg tablet RxNorm: 156837 2 1-2 Tablet(s) PO QID as needed for severe pain 05/15/2012 No Stop Date Active allopurinol 300 mg tablet RxNorm: 464081 1 Tablet(s) PO QD 05/14/20 12 06/12/2012 Inactive allopurinol 300 mg tablet RxNorm: 905980 1 Tablet(s) PO QD 05/14/20 12 05/13/2012 Inactive amlodipine 5 mg tablet RxNorm: 888422 1 Tablet(s) PO QD 05/01/2012 Inactive amlodipine 5 mg Tab RxNorm: 014753 1 Tablet(s) PO QD 05/01/201204/30 Inactive Celebrex 200 mg capsule RxNorm: 644161 1 Capsule(s) PO QD for j oint pain 05/01/2012 06/25/2012 Inactive Singulair 10 mg tablet RxNorm: 532603 1 Tablet(s) PO QD 05/01/2012 Inactive alprazolam 0.5 mg tablet RxNorm: 584856 1 Tablet(s) PO BID 05/01/20 12 05/30/2012 Inactive prn Celebrex 200 mg Cap RxNorm: 834074 1 Capsule(s) PO QD for joint radu n 05/01/2012 04/30/2012 Inactive hydrocodone-acetaminophen 10 mg-325 mg tablet RxNorm: 391099 2 1-2 Tablet(s) PO QID as needed for severe pain 04/19/2012 No Stop Date Active Lasix 40 mg tablet RxNorm: 897697 1 Tablet(s) PO RAZA ramirez take potassium supplementation with this medication 04/05/2012 06/03/2012 Inactive alprazolam 0.5 mg Tab RxNorm: 922600 1 Tablet(s) PO BID 04/05/2012 Inactive prn hydrocodone-acetaminophen 10 mg-325 mg Tab RxNorm: 7577279 1-2 Tablet(s) PO QID as needed for severe pain 03/25/2012 03/24/2012 Inactive clonidine 0.2 mg Tab RxNorm: 246662 1 Tablet(s) PO TID 03/08/2012 Inactive alprazolam 0.5 mg Tab RxNorm: 852360 1 Tablet(s) PO BID 03/08/2012 Inactive prn Soma 350 mg tablet RxNorm: 323135 1 Tablet(s) PO TID for spasm 02/0903/18/2012 Inactive clonidine 0.2 mg tablet RxNorm: 216353 1 Tablet(s) PO TID 03/08/2012 07/28/2012 Inactive Celebrex 200 mg Cap RxNorm: 718955 1 Capsule(s) PO QD for joint radu n 03/01/2012 04/29/2012 Inactive amlodipine 5 mg Tab RxNorm: 388805 1 Tablet(s) PO QD 02/26/201202/24 Inactive amlodipine 5 mg Tab RxNorm: 203986 1 Tablet(s) PO QD 02/26/201204/25 Inactive Bactroban 2 % Ointment RxNorm: 637317 Application TOP QID to sores 02/23/2012 No Stop Date Active amlodipine 2.5 mg tablet RxNorm: 361631 1 Tablet(s) PO QHS 02/20/2002/25/2012 Inactive doxycycline hyclate 100 mg Cap RxNorm: 3497980 1 Capsule(s) PO BID 02/20/2012 02/29/2012 Inactive hydrocodone-acetaminophen 10 mg-325 mg Tab RxNorm: 6660908 1-2 T ablet(s) PO QID 02/08/2012 No Stop Date Active alprazolam 0.5 mg Tab RxNorm: 536538 1 Tablet(s) PO BID 02/08/2012 Inactive prn Singulair 10 mg Tab RxNorm: 261708 1 Tablet(s) PO QD 02/08/201204/30 Inactive Soma 350 mg Tab RxNorm: 819022 1 Tablet(s) PO TID for spasm 012 03/07/2012 Inactive Soma 350 mg Tab RxNorm: 814604 1 Tablet(s) PO TID for spasm 012 02/05/2012 Inactive diclofenac sodium 75 mg tablet,delayed release RxNorm: 19878 8 1 Tablet(s) PO BID for pain 02/01/2012 03/18/2012 Inactive Celebrex 200 mg Cap RxNorm: 970373 1 Capsule(s) PO QD for joint radu n 01/30/2012 02/28/2012 Inactive Lasix 40 mg Tab RxNorm: 789986 1 Tablet(s) PO QAM 01/24/2012 03/18/20 12 Inactive potassium chloride ER 20 mEq tablet,extended release(part/cr yst) RxNorm: 242948 2 Tablet(s) PO BID 01/24/2012 02/22/2012 Inactive alprazolam 0.5 mg Tab RxNorm: 678182 1 Tablet(s) PO BID 01/11/2012 Inactive prn hydrocodone-acetaminophen 10 mg-325 mg Tab RxNorm: 4122436 1-2 T ablet(s) PO QID 01/11/2012 No Stop Date Active Ambien 10 mg Tab RxNorm: 221003 1 Tablet(s) PO QHS 01/11/2012 012 Inactive Klor-Con 8 mEq Tab RxNorm: 439688 1 Tablet(s) PO BID 01/11/201201/22 Inactive diclofenac sodium 75 mg Tab, Delayed Release RxNorm: 527804 1 Tablet(s) PO BID for pain 01/10/2012 01/31/2012 Inactive Ambien 10 mg Tab RxNorm: 293882 1 Tablet(s) PO QHS 12/11/2011 012 Inactive alprazolam 0.5 mg Tab RxNorm: 768460 1 Tablet(s) PO BID 12/11/2011 Inactive prn hydrocodone 10 mg-acetaminophen 325 mg tablet RxNorm: 477098 1-2 Tablet(s) PO TID 11/28/2011 No Stop Date Active as needed for pa in - Previous quantity #240, will start dosing for #180 in April [address] Ignacio. Ambien 10 mg Tab RxNorm: 298242 1 Tablet(s) PO QHS 11/09/2011 012 Inactive alprazolam 0.5 mg Tab RxNorm: 680676 1 Tablet(s) PO BID 11/09/2011 Inactive prn hydrocodone-acetaminophen 10 mg-325 mg Tab RxNorm: 5259426 1-2 T ablet(s) PO TID 11/06/2011 No Stop Date Active as needed for pain - Previous quantity #240, will start dosing for #180 in April 2011 [address] Doctor Ignacio. Singulair 10 mg Tab RxNorm: 879203 1 Tablet(s) PO QD 10/13/201110/12 Inactive Singulair 10 mg Tab RxNorm: 676588 1 Tablet(s) PO QD 10/13/201102/06 Inactive hydrocodone-acetaminophen 10 mg-325 mg Tab RxNorm: 3833888 1-2 T ablet(s) PO TID 10/10/2011 10/09/2011 Inactive as needed for pain - Previous quantity #240, will start dosing for #180 in April [address] Ignacio. hydrocodone-acetaminophen 10 mg-325 mg Tab RxNorm: 6002934 1-2 T ablet(s) PO TID 10/09/2011 No Stop Date Active as needed for pain - Previous quantity #240, will start dosing for #180 in April 2011 [address] Doctor Ignacio. Klor-Con 8 mEq Tab RxNorm: 297576 1 Tablet(s) PO BID 10/02/201101/09 Inactive triamterene 75 mg-hydrochlorothiazide 50 mg tablet RxNorm: 3 84503 1 Tablet(s) PO QD 09/14/2011 03/06/2013 Inactive Ambien 10 mg Tab RxNorm: 543231 1 Tablet(s) PO QHS 09/14/2011 012 Inactive hydrocodone-acetaminophen 10 mg-325 mg Tab RxNorm: 6687801 1-2 T ablet(s) PO TID 09/14/2011 No Stop Date Active as needed for pain - Previous quantity #240, will start dosing for #180 in April [address] Ignacio. alprazolam 0.5 mg Tab RxNorm: 780878 1 Tablet(s) PO BID 09/14/2011 Inactive prn Zithromax 500 mg Tab RxNorm: 199843 1 Tablet(s) PO QD 09/13/201109/10 Inactive prednisone 20 mg Tab RxNorm: 051216 1 Tablet(s) PO BID 08/31/2011 Inactive Ambien 10 mg Tab RxNorm: 972019 1 Tablet(s) PO QHS 08/17/2011 011 Inactive hydrocodone-acetaminophen 10 mg-325 mg Tab RxNorm: 2568012 1-2 T ablet(s) PO TID 08/17/2011 No Stop Date Active as needed for pain - Previous quantity #240, will start dosing for #180 in April 2011 [address] Ignacio. clonidine 0.2 mg Tab RxNorm: 090176 1 Tablet(s) PO TID 08/17/201112/2011 Inactive Ambien 10 mg Tab RxNorm: 256721 1 Tablet(s) PO QHS 08/17/2011 019 Inactive alprazolam 0.5 mg Tab RxNorm: 380956 1 Tablet(s) PO BID 08/17/2011 Inactive prn hydrocodone-acetaminophen 10 mg-325 mg Tab RxNorm: 2071921 1-2 T ablet(s) PO TID 08/17/2011 08/16/2011 Inactive as needed for pain - Previous quantity #240, will start dosing for #180 in April [address] Ignacio. Singulair 10 mg Tab RxNorm: 997409 1 Tablet(s) PO QD 08/17/201108/16 Inactive Klor-Con 8 mEq Tab RxNorm: 846212 1 Tablet(s) PO QD 08/17/20112011 Inactive alprazolam 0.5 mg Tab RxNorm: 436111 1 Tablet(s) PO BID 07/20/2011 Inactive prn Ambien 10 mg Tab RxNorm: 732807 1 Tablet(s) PO QHS 07/20/2011 012 Inactive Singulair 10 mg Tab RxNorm: 664406 1 Tablet(s) PO QD 07/20/201107/19 Inactive Premarin 1.25 mg tablet RxNorm: 391736 2 Tablet(s) PO QD 07/20/2011 0 01/21/2019 Inactive Premarin 1.25 mg tablet RxNorm: 994746 1-2 Tablet(s) PO QD 07/20/20 11 12/16/2011 Inactive Premarin 1.25 mg Tab RxNorm: 137177 1-2 Tablet(s) PO QD 07/06/2011 Inactive alprazolam 0.5 mg Tab RxNorm: 786334 1 Tablet(s) PO BID 06/22/2011 Inactive prn alprazolam 0.5 mg Tab RxNorm: 360582 1 Tablet(s) PO BID 06/22/2011 Inactive prn Premarin 1.25 mg Tab RxNorm: 251352 1 Tablet(s) PO QD m ay do 90 day fill if desired 06/22/2011 07/05/2011 Inactive hydrocodone-acetaminophen 10 mg-325 mg Tab RxNorm: 8140904 1-2 T ablet(s) PO TID 06/22/2011 No Stop Date Active as needed for pain - Previous quantity #240, will start dosing for #180 in April [address] Ignacio. clonidine 0.2 mg Tab RxNorm: 966201 1 Tablet(s) PO TID 05/25/201103/2011 Inactive triamterene-hydrochlorothiazide 75 mg-50 mg Tab RxNorm: 3108 18 1 Tablet(s) PO QD 05/25/2011 09/13/2011 Inactive alprazolam 0.5 mg Tab RxNorm: 000925 1 Tablet(s) PO BID 05/25/2011 Inactive prn hydrocodone-acetaminophen 10 mg-325 mg Tab RxNorm: 5864865 1-2 T ablet(s) PO TID 05/25/2011 No Stop Date Active as needed for pain - Previous quantity #240, will start dosing for #180 in April [address] Ignacio. Robaxin-750 750 mg Tab RxNorm: 853980 2 Tablet(s) PO QHS 05/22/2011 1 Inactive prn spasm hydrocodone-acetaminophen 10 mg-325 mg Tab RxNorm: 3088528 1-2 T ablet(s) PO TID 04/26/2011 No Stop Date Active as needed for pain - Previous quantity #240, will start dosing for #180 in April [address] Ignacio. alprazolam 0.5 mg Tab RxNorm: 913679 1 Tablet(s) PO BID 04/25/2011 Inactive prn Klor-Con 8 mEq Tab RxNorm: 789263 1 Tablet(s) PO QD 03/30/20112010 Inactive Klor-Con 8 mEq Tab RxNorm: 811789 1 Tablet(s) PO QD 03/29/20112010 Inactive hydrocodone-acetaminophen 10 mg-325 mg Tab RxNorm: 7424877 1-2 T ablet(s) PO TID 03/20/2011 04/25/2011 Inactive as needed for pain - Previous quantity #240, will start dosing for #180 in April [address] Ignacio. alprazolam 0.5 mg Tab RxNorm: 482942 1 Tablet(s) PO BID prn 011 03/30/2011 Inactive Ambien 10 mg Tab RxNorm: 350763 1 Tablet(s) PO QHS 03/01/2011 011 Inactive cyclobenzaprine 10 mg Tab RxNorm: 714869 1 Tablet(s) PO TID 011 03/18/2012 Inactive cyclobenzaprine 10 mg Tab RxNorm: 337291 1 Tablet(s) PO TID 011 01/08/2011 Inactive cyclobenzaprine 10 mg Tab RxNorm: 016117 1 Tablet(s) PO TID 011 12/20/2010 Inactive terbinafine 250 mg Tab RxNorm: 173407 1 Tablet(s) PO QD 12/12/2010 Inactive triamterene-hydrochlorothiazide 75 mg-50 mg Tab RxNorm: 3108 18 1 Tablet(s) PO QD 12/07/2010 01/12/2020 Inactive Klor-Con 8 8 mEq Tab RxNorm: 979403 1 Tablet(s) PO QD 12/07/201001/08 Inactive Premarin 1.25 mg Tab RxNorm: 895054 2 Tablet(s) PO QD 12/07/201001/08 Inactive clonidine 0.2 mg Tab RxNorm: 260092 1 Tablet(s) PO TID 12/07/2010 Inactive hydrocodone-acetaminophen 7.5 mg-650 mg Tab RxNorm: 454571 1 Ta blet(s) PO Q4H 12/05/2010 01/21/2019 Inactive hydrocodone-acetaminophen 7.5 mg-650 mg Tab RxNorm: 715647 1 Ta blet(s) PO Q4H 10/26/2010 11/14/2010 Inactive hydrocodone-acetaminophen 7.5 mg-650 mg Tab RxNorm: 800123 1 Ta blet(s) PO Q4H 10/13/2010 10/25/2010 Inactive hydrocodone-acetaminophen 7.5 mg-650 mg Tab RxNorm: 267329 1 Ta blet(s) PO Q4H 09/15/2010 09/12/2010 Inactive alprazolam 0.5 mg Tab RxNorm: 285192 1 Tablet(s) PO BID prn 011 09/12/2010 Inactive terbinafine 250 mg Tab RxNorm: 725679 1 Tablet(s) PO QD 09/05/2010 Inactive hydrocodone-acetaminophen 7.5 mg-650 mg Tab RxNorm: 420518 1 Ta blet(s) PO Q4H 08/29/2010 09/17/2010 Inactive alprazolam 0.5 mg Tab RxNorm: 649107 1 Tablet(s) PO BID prn 010 09/27/2010 Inactive alprazolam 0.5 mg Tab RxNorm: 630401 1 Tablet(s) PO BID prn 010 09/06/2010 Inactive Klor-Con 8 mEq Tab RxNorm: 094162 1 Tablet(s) PO QD 08/08/20102010 Inactive hydrocodone-acetaminophen 7.5 mg-650 mg Tab RxNorm: 010129 1 Ta blet(s) PO Q4H 08/08/2010 08/27/2010 Inactive Ambien 10 mg Tab RxNorm: 234156 1 Tablet(s) PO QHS 08/08/2010 Inactive clonidine 0.2 mg Tab RxNorm: 319314 1 Tablet(s) PO TID 08/08/2010 Inactive Premarin 1.25 mg Tab RxNorm: 876945 2 Tablet(s) PO QD 08/08/201009/12 Inactive Ambien 10 mg Tab RxNorm: 632433 1 Tablet(s) PO QHS 07/18/2010 Inactive alprazolam 0.5 mg Tab RxNorm: 394149 1 Tablet(s) PO BID prn 010 08/07/2010 Inactive hydrocodone-acetaminophen 7.5 mg-650 mg Tab RxNorm: 625788 1 Ta blet(s) PO Q4H 07/12/2010 07/31/2010 Inactive clonidine 0.2 mg Tab RxNorm: 464472 1 Tablet(s) PO TID 06/20/2010 Inactive terbinafine 250 mg Tab RxNorm: 777873 1 Tablet(s) PO QD 05/24/2010 Inactive Clonidine 0.2 mg Tab RxNorm: 963928 1 Tablet(s) PO TID 05/24/201006/2010 Inactive Ambien 10 mg Tab RxNorm: 945408 1 Tablet(s) PO QHS 05/24/2010 Inactive alprazolam 0.5 mg Tab RxNorm: 660101 1 Tablet(s) PO BID 05/24/2010 Inactive Klor-Con 8 mEq Tab RxNorm: 581310 1 Tablet(s) PO QD 05/24/20102009 Inactive alprazolam 0.5 mg Tab RxNorm: 271134 2 Tablet(s) PO QD prn 05/24/2007/17/2010 Inactive triamterene-hydrochlorothiazide 75 mg-50 mg Tab RxNorm: 3108 18 1 Tablet(s) PO QD 05/24/2010 11/19/2010 Inactive Ambien 10 mg Tab RxNorm: 456257 1 Tablet(s) PO QHS 05/23/2010 Inactive Alprazolam 0.5 mg Tab RxNorm: 945991 2 Tablet(s) PO QD prn 05/23/20 10 05/23/2010 Inactive Premarin 1.25 mg Tab RxNorm: 027986 2 Tablet(s) PO QD 05/19/201007/12 Inactive Hydrocodone-Acetaminophen 7.5 mg-650 mg Tab RxNorm: 098931 1 Ta blet(s) PO Q4H 05/19/2010 03/20/2011 Inactive Prednisone 20 mg Tab RxNorm: 134556 1 Tablet(s) PO BID 05/17/2010 Inactive Prednisone 20 mg Tab RxNorm: 181875 1 Tablet(s) PO BID 05/06/201001/2010 Inactive Premarin 1.25 mg Tab RxNorm: 778174 Tablet(s) PO 2 M-W-F, and 1 Yl-Gw-Ehf-Sun 05/05/2010 08/02/2010 Inactive Premarin 1.25 mg Tab RxNorm: 644103 Tablet(s) PO 2 M-W-F, and 1 Bm-Yq-Jse-Sun 05/04/2010 05/04/2010 Inactive Premarin 1.25 mg Tab RxNorm: 301024 Tablet(s) PO 2 M-W-F, and 1 Jl-Ov-Qrj-Sun 05/04/2010 05/03/2010 Inactive Prednisone 20 mg Tab RxNorm: 086221 1 Tablet(s) PO BID 04/27/2010 Inactive Alprazolam 0.5 mg Tab RxNorm: 344281 2 Tablet(s) PO QD prn 04/26/20 10 05/22/2010 Inactive Clindamycin 300 mg Cap RxNorm: 434870 2 Capsule(s) PO TID 04/05/2010 04/18/2010 Inactive Terbinafine 250 mg Tab RxNorm: 188663 1 Tablet(s) PO QD 04/04/2010 Inactive Hydrocodone-Acetaminophen 7.5 mg-650 mg Tab RxNorm: 889394 1 Ta blet(s) PO Q4H 03/30/2010 04/18/2010 Inactive Avelox 400 mg Tab RxNorm: 971554 1 Tablet(s) PO QD 03/09/2010 Inactive Hydrocodone-Acetaminophen 7.5 mg-650 mg Tab RxNorm: 708439 1 Ta blet(s) PO Q4H 03/08/2010 03/27/2010 Inactive Alprazolam 0.5 mg Tab RxNorm: 614173 2 Tablet(s) PO QD prn 03/08/20 10 04/25/2010 Inactive Klor-Con 8 mEq Tab RxNorm: 305737 1 Tablet(s) PO QD when takes lasi x 03/07/2010 09/29/2019 Inactive Premarin 1.25 mg Tab RxNorm: 796064 1 Tablet(s) PO QD 03/03/201003/11 Inactive Alprazolam 0.5 mg Tab RxNorm: 680787 1 Tablet(s) PO BID PRN 010 No Stop Date Active triamterene-hydrochlorothiazide 75 mg-50 mg Tab RxNorm: 3108 18 1 Tablet(s) PO QD 02/09/2010 02/03/2011 Inactive Hydrocodone-Acetaminophen 10 mg-750 mg Tab RxNorm: 433081 1 Tablet(s) PO Q4H PRN 02/09/2010 03/20/2011 Inactive Clonidine 0.2 mg Tab RxNorm: 365931 1 Tablet(s) PO TID 01/13/201009/2009 Inactive Alprazolam 0.5 mg Tab RxNorm: 033763 1 Tablet(s) PO BID PRN 010 01/12/2010 Inactive Hydrocodone-Acetaminophen 10 mg-750 mg Tab RxNorm: 496295 1 Tablet(s) PO Q4H PRN 01/13/2010 01/12/2010 Inactive ANGELIQ 1 mg-0.5 mg Tab RxNorm: 4999152 1 Tablet(s) PO QD 12/27/2009 01/23/2010 Inactive Lasix 40 mg Tab RxNorm: 785099 1 Tablet(s) PO QAM 12/14/2009 06/11/20 10 Inactive Vitamin B12 1000mcg Tablet RxNorm: 1 Tablet(s) PO QD No Start Date Active cyclobenzaprine 10 mg tablet RxNorm: 171755 1 Tablet(s) PO TID as needed DO NOT USE WITH BACLOFEN No Start Date Active Vitamin D 5,000 unit Tab RxNorm: 1 Tablet(s) PO QD No Start Date Active vitamin E (dl, acetate) 400 unit Cap RxNorm: 917977 1 Capsule(s ) PO QD No Start Date Active Benadryl 25 mg Cap RxNorm: 2315405 Capsule(s) PO PRN No Start Date Inactive amitriptyline 100 mg tablet RxNorm: 976769 1 Tablet(s) PO QHS No St art Date 11/27/2016 Inactive Zithromax Z-Dustin 250 mg tablet RxNorm: 149613 Tablet(s) PO as di rected No Start Date 07/22/2013 Inactive Klor-Con 8 mEq tablet,extended release RxNorm: 848825 1 Tablet( s) PO BID No Start Date 07/28/2012 Inactive scopolamine 1.5 mg 72 hr Transderm Patch RxNorm: 288302 Application TD Q72H for motion sickness No Start Date 05/25/2013 Inactive Klonopin 1 mg tablet RxNorm: 925537 1-2 Tablet(s) PO QHS as nee ded for sleep No Start Date 06/20/2015 Inactive Klor-Con M20 mEq tablet,extended release RxNorm: 375474 2 Tablet(s) PO BID to use with lasix No Start Date 11/11/2013 Inactive Bystolic 5 mg tablet RxNorm: 147463 1 Tablet(s) PO QD No Start Date 1 Inactive Bystolic 10 mg tablet RxNorm: 352677 1 Tablet(s) PO BID No Start Da te 07/06/2015 Inactive Premarin 1.25 mg Tab RxNorm: 752352 Tablet(s) PO 2 -W-, and 1 Le-Bj-Oek-Sun No Start Date 05/03/2010 Inactive baclofen 20 mg tablet RxNorm: 002247 1 Tablet(s) PO TID as needed for muscle spasm No Start Date 07/22/2015 Inactive hydrocodone-acetaminophen 7.5 mg-650 mg Tab RxNorm: 497202 1 Tablet(s) PO Q4H as needed for pain No Start Date 03/20/2011 Inactive albuterol sulfate 1.25 mg/3 mL Neb Solution RxNorm: 548362 1 Unit Dose INH Q4H 2boxes No Start Date 09/06/2015 Inactive Butrans 20 mcg/hour Transderm Patch RxNorm: 603439 1 TD WEEKLY apply to skin weekly after removing previous. No Start Date 07/22/2013 Inactive Medrol (Dustin) 4 mg tablets in a dose pack RxNorm: 878900 Tablet(s) PO As Directed No Start Date 07/30/2016 Inactive hydrocodone-acetaminophen 10 mg-325 mg Tab RxNorm: 5169913 1-2 Tablet(s) PO TID as needed for pain No Start Date 03/19/2011 Inactive Klonopin 1 mg tablet RxNorm: 545631 1 Tablet(s) PO QHS No Start Date 02/28/2016 Inactive honey topical RxNorm: topical No Start Date 06/16/2018 Inactive Clonidine 0.2 mg Tab RxNorm: 517833 1 Tablet(s) PO TID No Start Date 01/12/2010 Inactive ketorolac 10 mg tablet RxNorm: 539214 1 Tablet(s) PO Q8H No Start D ate 03/18/2012 Inactive as needed for headache Singulair 10 mg Tab RxNorm: 346263 1 Tablet(s) PO QD No Start Date Inactive Premarin 1.25 mg Tab RxNorm: 130397 1 Tablet(s) PO QD No Start Date 1 Inactive Flonase 50 mcg/Actuation Nasal [place] RxNorm: 8086630 1 [place] BID No Start Date 03/18/2012 Inactive Terbinafine 250 mg Tab RxNorm: 470200 1 Tablet(s) PO QD No Start Da te 04/03/2010 Inactive Fexofenadine 180 mg Tab RxNorm: 1640340 1 Tablet(s) PO QD No Start Date 09/06/2015 Inactive baclofen 20 mg tablet RxNorm: 862797 1 Tablet(s) PO TID as needed N o Start Date 05/25/2014 Inactive Diovan 160 mg Tab RxNorm: 393787 1 Tablet(s) PO QD No Start Date 09/12 Inactive mupirocin 2 % topical ointment RxNorm: 840159 1 Application TOP QID No Start Date 04/25/2016 Inactive ZOFRAN ODT 4 mg Tab, Rapid Dissolve RxNorm: 978964 1 Tablet(s) PO Q4H No Start Date 03/18/2012 Inactive as needed for nausea and vomiting Alprazolam 0.5 mg Tab RxNorm: 009601 1 Tablet(s) PO BID PRN No Star t Date 01/12/2010 Inactive cyclobenzaprine 10 mg tablet RxNorm: 419793 1 Tablet(s) PO TID as needed for muscle spasm No Start Date 10/08/2017 Inactive Albuterol 0.083% Aerosol Solution RxNorm: 1 Appl ication INH Q4H Use one ampule every 4 hrs with nebulizer as needed for shortness of breath. No Start Date 10/09/2010 Inactive lorazepam 1 mg tablet RxNorm: 532209 1 1/2 Tablet(s) PO QHS No Star t Date 02/02/2016 Inactive Melatonin 3 mg Tab RxNorm: 877586 Tablet(s) PO PRN No Start Date 07/11 Inactive Medrol (Dustin) 4 mg Tabs in a Dose Pack RxNorm: 630832 Tablet(s) PO N o Start Date 11/28/2010 Inactive lorazepam 1 mg tablet RxNorm: 802370 1 Tablet(s) PO QHS as need ed for sleep No Start Date 01/30/2016 Inactive hydrocodone-acetaminophen 10 mg-325 mg Tab RxNorm: 4659458 1-2 Tablet(s) PO QID as needed for severe pain No Start Date 03/24/2012 Inactive celecoxib 200 mg capsule RxNorm: 080850 1 Capsule(s) PO BID No Star t Date 06/26/2019 Inactive amlodipine 5 mg-benazepril 20 mg capsule RxNorm: 477778 1 Capsu le(s) PO QD No Start Date 04/10/2017 Inactive Bystolic 20 mg tablet RxNorm: 822257 1/2 Tablet(s) PO QAM No Start Date 01/23/2016 Inactive Bystolic 20 mg tablet RxNorm: 221459 1 Tablet(s) PO QAM No Start Da te 04/25/2016 Inactive Ambien 10 mg Tab RxNorm: 464039 1 Tablet(s) PO QHS No Start Date 05/11 Inactive Klor-Con 8 mEq Tab RxNorm: 624660 1 Tablet(s) PO QD when takes lasix No Start Date 03/06/2010 Inactive aspirin 81 mg tablet RxNorm: 539065 1 Tablet(s) PO QD No Start Date 0 01/29/2018 Inactive hydrocodone-acetaminophen 10 mg-325 mg Tab RxNorm: 8814893 1-2 T ablet(s) PO QID No Start Date 01/10/2012 Inactive Bystolic 10 mg tablet RxNorm: 967958 1 Tablet(s) PO QAM take one daily in the morning. No Start Date 05/28/2013 Inactive nystatin 100,000 unit/mL Oral Susp RxNorm: 641624 5 Milliliter( s) PO QID No Start Date 03/18/2012 Inactive swish and spit scopolamine 1.5 mg 72 hr Transderm Patch RxNorm: 086885 1 Unit Dose TD Q72H for motion sickness No Start Date 12/23/2013 Inactive Hydrocodone-Acetaminophen 10 mg-750 mg Tab RxNorm: 090960 1 Tablet(s) PO Q4H PRN No Start Date 01/12/2010 Inactive Soma 350 mg tablet RxNorm: 367295 1 Tablet(s) PO TID as needed for spasm No Start Date 01/12/2013 Inactive baclofen 10 mg tablet RxNorm: 112639 1 Tablet(s) PO TID as needed for muscle spasm No Start Date 09/18/2019 Inactive Soma 350 mg Tab RxNorm: 130826 1 Tablet(s) PO TID for spasm No Star t Date 01/31/2012 Inactive Co Q-10 400 mg capsule RxNorm: 121102 1 Capsule(s) PO QD No Start D ate 01/21/2019 Inactive nystatin 100,000 unit/gram topical cream RxNorm: 950202 Applica tion TOP BID No Start Date 03/22/2015 Inactive Exforge 5 mg-160 mg Tab RxNorm: 155540 1 Tablet(s) PO QD No Start D ate 10/09/2010 Inactive Hydrocodone-Acetaminophen 7.5 mg-650 mg Tab RxNorm: 956018 1 Ta blet(s) PO Q4H No Start Date 03/07/2010 Inactive Robaxin-750 750 mg Tab RxNorm: 014178 1-2 Tablet(s) PO TID prn spasm No Start Date 05/21/2011 Inactive amlodipine 5 mg tablet RxNorm: 287380 1 Tablet(s) PO QHS No Start D ate 09/29/2015 Inactive oxycodone-acetaminophen 10 mg-325 mg tablet RxNorm: 3218956 1-2 Tablet(s) PO Q6H No Start Date 06/16/2018 Inactive Triamterene-Hydrochlorothiazide 75 mg-50 mg Tab RxNorm: 3108 18 1 Tablet(s) PO QD No Start Date 02/08/2010 Inactive Alprazolam 0.5 mg Tab RxNorm: 074641 2 Tablet(s) PO QD prn No Start Date 03/07/2010 Inactive Bystolic 20 mg tablet RxNorm: 546909 1 Tablet(s) PO QAM No Start Da te 08/17/2015 Inactive ketorolac 10 mg tablet RxNorm: 836275 1 Tablet(s) PO QID prn he adache No Start Date 07/17/2012 Inactive acyclovir 800 mg Tab RxNorm: 222812 1 Tablet(s) PO BID No Start Date 03/18/2012 Inactive duloxetine 60 mg capsule,delayed release RxNorm: 006103 1 Capsu le(s) PO QD No Start Date 09/29/2015 Inactive Norvasc 5 mg tablet RxNorm: 831323 1 Tablet(s) PO QHS No Start Date 1 10/18/2014 Inactive promethazine 25 mg tablet RxNorm: 282558 1 Tablet(s) PO Q8H use sparingly No Start Date 07/22/2013 Inactive alprazolam 0.5 mg tablet RxNorm: 600458 3 Tablet(s) PO QHS No Start Date 06/06/2015 Inactive Lunesta 3 mg tablet RxNorm: 889610 1 Tablet(s) PO QHS No Start Date 0 09/20/2017 Inactive hydrocodone-acetaminophen 10 mg-325 mg Tab RxNorm: 1578110 1-2 Tablet(s) PO TID as needed for pain No Start Date 12/10/2011 Inactive Coricidin HBP Cough & Cold 4 mg-30 mg Tab RxNorm: 8987433 Tablet (s) PO PRN No Start Date 10/09/2010 Inactive Bactroban 2 % Ointment RxNorm: 406777 Application TOP QID to so res No Start Date 02/22/2012 Inactive Flonase 50 mcg/actuation Nasal [place] RxNorm: 415424 2 [place] QHS No Start Date 03/03/2014 Inactive Medication Administered No Medication Administered data Immunizations Vaccine Codes Date Status Tetanus, Diptheria, Pertussis CVX: 115 02/27/2014 Results Observation Observation Code Item Item Code Result Date S ervice Location MEAN GLUC 3982190 Calc Mean Gluc 209 mg/dL 02/12/2020 Unkn own GLYCOSYLATED HEMOGLOBIN TEST 76623 Hgb A1c 46279-4 8.9 % 0 02/12/2020 Unknown GFR CALC 2777384 GFR Non Afr Amr >60 mL/min 02/12/2020 Un known GFR CALC 5770390 GFR Afr Amr >60 mL/min 02/12/2020 Unknow n COMPREHENSIVE METABOLIC 59952 AST 27 U/L 2019 Unknown COMPREHENSIVE METABOLIC 28926 ALT 16 U/L 2019 Unknown COMPREHENSIVE METABOLIC 28585 BUN 22 mg/dL 2019 Unknown COMPREHENSIVE METABOLIC 47037 ALBUMIN 3.9 g/dL 2019 Unknown COMPREHENSIVE METABOLIC 73598 CHLORIDE 98 mmol/L 2019 Unknown COMPREHENSIVE METABOLIC 70372 Bili Total 0.5 mg/dL 02/11 Unknown COMPREHENSIVE METABOLIC 17295 ALK PHOS 72 U/L 2019 Unknown COMPREHENSIVE METABOLIC 83157 SODIUM 137 mmol/L 02/11 Unknown COMPREHENSIVE METABOLIC 63250 CREATININE 0.96 mg/dL 12/2019 Unknown COMPREHENSIVE METABOLIC 41984 CALCIUM 9.1 mg/dL 2019 Unknown COMPREHENSIVE METABOLIC 90359 POTASSIUM 4.6 mmol/L 02/11 Unknown COMPREHENSIVE METABOLIC 14327 Total Protein 6.5 g/dL Unknown COMPREHENSIVE METABOLIC 54363 Glucose 129 mg/dL 2019 Unknown COMPREHENSIVE METABOLIC 73393 Bicarbonate 31 mmol/L 12/2019 Unknown COMPREHENSIVE METABOLIC 82988 AGAP 8 mmol/L 2019 Unknown COMPREHENSIVE METABOLIC 81610 AST 15 U/L 2019 Unknown COMPREHENSIVE METABOLIC 75221 ALT 13 U/L 2019 Unknown COMPREHENSIVE METABOLIC 28634 BUN 12 mg/dL 2019 Unknown COMPREHENSIVE METABOLIC 00122 ALBUMIN 3.9 g/dL 2019 Unknown COMPREHENSIVE METABOLIC 78429 CHLORIDE 97 mmol/L 2019 Unknown COMPREHENSIVE METABOLIC 61806 Bili Total 0.4 mg/dL 09/29 Unknown COMPREHENSIVE METABOLIC 07498 ALK PHOS 130 U/L 2019 Unknown COMPREHENSIVE METABOLIC 61920 SODIUM 136 mmol/L 09/29 Unknown COMPREHENSIVE METABOLIC 34153 CREATININE 0.92 mg/dL 09/11 Unknown COMPREHENSIVE METABOLIC 89356 CALCIUM 9.1 mg/dL 2019 Unknown COMPREHENSIVE METABOLIC 02899 POTASSIUM 4.4 mmol/L 09/29 Unknown COMPREHENSIVE METABOLIC 96120 Total Protein 6.2 g/dL Unknown COMPREHENSIVE METABOLIC 59877 Glucose 391 mg/dL 2019 Unknown COMPREHENSIVE METABOLIC 97310 Bicarbonate 30 mmol/L 09/11 Unknown COMPREHENSIVE METABOLIC 38641 AGAP 9 mmol/L 2019 Unknown MEAN GLUC 0960723 Calc Mean Gluc 332 mg/dL 09/29/2019 Unkn own COMPLETE BLOOD COUNT [id number] WBC 7.0 10e9/L 09/29/19 Unknown COMPLETE BLOOD COUNT [id number] RBC 4.69 10e12/L 2019 Unknown COMPLETE BLOOD COUNT 2375335 HEMOGLOBIN 14.6 g/dL 09/29/19 Unknown COMPLETE BLOOD COUNT [id number] HEMATOCRIT 45.2 % 09/29/19 Unknown COMPLETE BLOOD COUNT [id number] MCV 96.4 fL 0 Unknown COMPLETE BLOOD COUNT 0759504 MCH 31.1 pg 0 Unknown COMPLETE BLOOD COUNT [id number] MCHC 32.3 g/dL 0 Unknown COMPLETE BLOOD COUNT [id number] PLATELET COUNT 209 10e9/L Unknown COMPLETE BLOOD COUNT 2411225 Mean Plt Volume 9.8 fL Unknown COMPLETE BLOOD COUNT 8129618 Neut Auto 48.1 % 0 Unknown COMPLETE BLOOD COUNT [id number] Lymph Auto 36.5 % 09/29/19 Unknown COMPLETE BLOOD COUNT [id number] Cotton Auto 8.6 % 0 Unknown COMPLETE BLOOD COUNT [id number] RDW 13.4 % 0 Unknown COMPLETE BLOOD COUNT [id number] Eos Auto 6.5 % 0 Unknown COMPLETE BLOOD COUNT 3887384 Baso Auto 0.3 % 0 Unknown COMPLETE BLOOD COUNT [id number] Neutrophil Abs 3.37 10e9/L Unknown COMPLETE BLOOD COUNT [id number] Lymphocyte Abs 2.56 10e9/L Unknown COMPLETE BLOOD COUNT [id number] Monocyte Abs 0.60 10e9/L 09/11 Unknown COMPLETE BLOOD COUNT [id number] Eosinophil Abs 0.46 10e9/L Unknown COMPLETE BLOOD COUNT [id number] RDW-SD 45.9 fL 0 Unknown COMPLETE BLOOD COUNT [id number] Basophil Abs 0.02 10e9/L 09/11 Unknown LIPID GROUP 07621 Cholesterol 248 mg/dL 09/29/2019 Unkno wn LIPID GROUP 31711 Triglyceride 898 mg/dL 09/29/2019 Unkn own LIPID GROUP 48137 HDL CHOLESTEROL 41 mg/dL 09/29/2019 U nknown LIPID GROUP 38302 Chol/HDL Ratio 6.05 ratio 09/29/2019 U nknown LIPID GROUP 12034 NON-HDL Chol 207 mg/dL 09/29/2019 Unkn own LIPID GROUP 43898 LDL Cholesterol N/A Trig >400 020 Unknown GLYCOSYLATED HEMOGLOBIN TEST 77847 Hgb A1c 70534-9 13.2 % 0 09/29/2019 Unknown FREE T4 84413 T4 Free 0.75 ng/dL 09/29/2019 Unknown GFR CALC 5027373 GFR Non Afr Amr >60 mL/min 09/29/2019 Un known GFR CALC 0541216 GFR Afr Amr >60 mL/min 09/29/2019 Unknow n THYROID STIMULATING HORMONE 80611 TSH 4.245 uIU/mL 09/29/2019 Unknown COMPLETE BLOOD COUNT [id number] WBC 10.7 10e9/L 018 Unknown COMPLETE BLOOD COUNT [id number] RBC 4.59 10e12/L 2017 Unknown COMPLETE BLOOD COUNT [id number] HEMOGLOBIN 14.8 g/dL 12/11/19 18 Unknown COMPLETE BLOOD COUNT 1333459 HEMATOCRIT 44.9 % 12/11/19 18 Unknown COMPLETE BLOOD COUNT [id number] MCV 97.8 fL 8 Unknown COMPLETE BLOOD COUNT 5623882 MCH 32.2 pg 8 Unknown COMPLETE BLOOD COUNT 1921401 MCHC 33.0 g/dL 8 Unknown COMPLETE BLOOD COUNT 1574672 PLATELET COUNT 261 10e9/L 10/2017 Unknown COMPLETE BLOOD COUNT [id number] Mean Plt Volume 9.5 fL 10/2017 Unknown COMPLETE BLOOD COUNT 6147370 Neut Auto 59.9 % 8 Unknown COMPLETE BLOOD COUNT [id number] Lymph Auto 27.4 % 12/11/19 18 Unknown COMPLETE BLOOD COUNT [id number] Cotton Auto 8.2 % 8 Unknown COMPLETE BLOOD COUNT 7936281 RDW 13.3 % 8 Unknown COMPLETE BLOOD COUNT 5989018 Eos Auto 4.1 % 8 Unknown COMPLETE BLOOD COUNT 1587165 Baso Auto 0.4 % 8 Unknown COMPLETE BLOOD COUNT 7883182 Neutrophil Abs 6.41 10e9/L Unknown COMPLETE BLOOD COUNT [id number] Lymphocyte Abs 2.93 10e9/L Unknown COMPLETE BLOOD COUNT [id number] Monocyte Abs 0.88 10e9/L 10/2017 Unknown COMPLETE BLOOD COUNT [id number] Eosinophil Abs 0.44 10e9/L Unknown COMPLETE BLOOD COUNT 4856659 RDW-SD 46.2 fL 8 Unknown COMPLETE BLOOD COUNT 1582168 Basophil Abs 0.04 10e9/L 10/2017 Unknown THYROID STIMULATING HORMONE 25630 TSH 4.015 uIU/mL 12/10/2017 Unknown COMPREHENSIVE METABOLIC 93208 AST 25 U/L 2017 Unknown COMPREHENSIVE METABOLIC 56592 ALT 17 U/L 2017 Unknown COMPREHENSIVE METABOLIC 23410 BUN 19 mg/dL 2017 Unknown COMPREHENSIVE METABOLIC 30250 ALBUMIN 4.0 g/dL 2017 Unknown COMPREHENSIVE METABOLIC 15199 CHLORIDE 91 mmol/L 2017 Unknown COMPREHENSIVE METABOLIC 81411 Bili Total 0.5 mg/dL 12/10 Unknown COMPREHENSIVE METABOLIC 68472 ALK PHOS 75 U/L 2017 Unknown COMPREHENSIVE METABOLIC 41709 SODIUM 136 mmol/L 12/10 Unknown COMPREHENSIVE METABOLIC 01325 CREATININE 1.05 mg/dL 10/2017 Unknown COMPREHENSIVE METABOLIC 03705 CALCIUM 8.9 mg/dL 2017 Unknown COMPREHENSIVE METABOLIC 76740 POTASSIUM 3.4 mmol/L 12/10 Unknown COMPREHENSIVE METABOLIC 19901 Total Protein 6.5 g/dL Unknown COMPREHENSIVE METABOLIC 52558 Glucose 138 mg/dL 2017 Unknown COMPREHENSIVE METABOLIC 36647 Bicarbonate 35 mmol/L 10/2017 Unknown COMPREHENSIVE METABOLIC 87556 AGAP 10 mmol/L 2017 Unknown MEAN GLUC 8037951 Calc Mean Gluc 171 mg/dL 12/10/2017 Unkn own LIPID GROUP 55566 Cholesterol 204 mg/dL 12/10/2017 Unkno wn LIPID GROUP 81142 Triglyceride 411 mg/dL 12/10/2017 Unkn own LIPID GROUP 13795 HDL CHOLESTEROL 50 mg/dL 12/10/2017 U nknown LIPID GROUP 69184 Chol/HDL Ratio 4.08 ratio 12/10/2017 U nknown LIPID GROUP 07772 NON-HDL Chol 154 mg/dL 12/10/2017 Unkn own LIPID GROUP 83756 LDL Cholesterol N/A Trig >400 018 Unknown GLYCOSYLATED HEMOGLOBIN TEST 21572 Hgb A1c 30060-5 7.6 % 0 12/10/2017 Unknown FREE T4 15166 T4 Free 1.40 ng/dL 12/10/2017 Unknown GFR CALC 8262126 GFR Non Afr Amr 55 mL/min 12/10/2017 Unk nown GFR CALC 8700026 GFR Afr Amr >60 mL/min 12/10/2017 Unknow n GFR CALC 1422065 GFR Non Afr Amr 48 mL/min 06/28/2017 Unk nown GFR CALC 2989908 GFR Afr Amr 59 mL/min 06/28/2017 Unknown COMPREHENSIVE METABOLIC 71114 AST 32 U/L 2016 Unknown COMPREHENSIVE METABOLIC 71665 ALT 22 U/L 2016 Unknown COMPREHENSIVE METABOLIC 48019 BUN 23 mg/dL 2016 Unknown COMPREHENSIVE METABOLIC 89049 ALBUMIN 4.7 g/dL 2016 Unknown COMPREHENSIVE METABOLIC 14190 CHLORIDE 89 mmol/L 2016 Unknown COMPREHENSIVE METABOLIC 06504 Bili Total 0.5 mg/dL 06/28 Unknown COMPREHENSIVE METABOLIC 93190 ALK PHOS 90 U/L 2016 Unknown COMPREHENSIVE METABOLIC 21641 SODIUM 135 mmol/L 06/28 Unknown COMPREHENSIVE METABOLIC 85485 CREATININE 1.18 mg/dL 06/10 Unknown COMPREHENSIVE METABOLIC 41563 CALCIUM 9.7 mg/dL 2016 Unknown COMPREHENSIVE METABOLIC 67621 POTASSIUM 3.5 mmol/L 06/28 Unknown COMPREHENSIVE METABOLIC 91862 Total Protein 7.7 g/dL Unknown COMPREHENSIVE METABOLIC 28186 Glucose 129 mg/dL 2016 Unknown COMPREHENSIVE METABOLIC 24651 Bicarbonate 34 mmol/L 06/10 Unknown COMPREHENSIVE METABOLIC 74795 AGAP 12 mmol/L 2016 Unknown LIPID GROUP 99628 HDL TEST 64 MG/DL 08/27/2014 Unknown LIPID GROUP 95988 TRIG 222 MG/DL 08/27/2014 Unknown LIPID GROUP 02633 TEST LDL 209 MG/DL 08/27/2014 Unknown LIPID GROUP 77941 CHOL 317 MG/DL 08/27/2014 Unknown LIPID GROUP 65135 RCHOL/HDL 4.95 RATIO 08/27/2014 Unknow n LIPID GROUP 53781 NON-HDL CH 253 MG/DL 08/27/2014 Unknow n GFR CALC 7705782 GFR AA >60 ML/MIN 08/27/2014 Unknown GFR CALC 1744108 GFR NON-AA >60 ML/MIN 08/27/2014 Unknown COMPLETE BLOOD COUNT 0176605 WBC 7.0 10e9/L 08/27/20 14 Unknown COMPLETE BLOOD COUNT 8219504 RBC 4.98 10e12/L 2013 Unknown COMPLETE BLOOD COUNT 6369570 HGB 15.6 g/dL 4 Unknown COMPLETE BLOOD COUNT 7106368 HCT DET 46.5 % 4 Unknown COMPLETE BLOOD COUNT 8376204 MCV 93.4 fL 4 Unknown COMPLETE BLOOD COUNT 4399474 MCH 31.3 pg 4 Unknown COMPLETE BLOOD COUNT 2947948 MCHC 33.5 g/dL 4 Unknown COMPLETE BLOOD COUNT 3669090 PLT 309 10e9/L 08/27/20 14 Unknown COMPLETE BLOOD COUNT 2142039 MPV 9.6 fL 4 Unknown COMPLETE BLOOD COUNT 9106100 CADEN % 57.2 % 4 Unknown COMPLETE BLOOD COUNT 9516490 LY % 33.2 % 4 Unknown COMPLETE BLOOD COUNT 8816019 MON % 7.3 % 4 Unknown COMPLETE BLOOD COUNT 2413539 EOS % 2.0 % 4 Unknown COMPLETE BLOOD COUNT 6282406 BASO % 0.3 % 4 Unknown COMPLETE BLOOD COUNT 4260680 RDW 13.7 % 4 Unknown COMPLETE BLOOD COUNT [id number] ABS CADEN 4.00 10e9/L 014 Unknown COMPLETE BLOOD COUNT [id number] ABS LYMPH 2.32 10e9/L 014 Unknown COMPLETE BLOOD COUNT [id number] ABS MONO 0.51 10e9/L 014 Unknown COMPLETE BLOOD COUNT [id number] ABS EOS 0.14 10e9/L 014 Unknown COMPLETE BLOOD COUNT 2351781 ABS BASO 0.02 10e9/L 014 Unknown COMPLETE BLOOD COUNT 1309342 RDW-SD 45.1 fL 4 Unknown COMPREHENSIVE METABOLIC 47158 AST 13 U/L 2013 Unknown COMPREHENSIVE METABOLIC 01015 ALT 11 IU/L 2013 Unknown COMPREHENSIVE METABOLIC 09074 BUN 23 MG/DL 2013 Unknown COMPREHENSIVE METABOLIC 38619 ALBUMIN 4.4 GM/DL 2013 Unknown COMPREHENSIVE METABOLIC 38300 CHLORIDE 99 MMOL/L 2013 Unknown COMPREHENSIVE METABOLIC 94924 BILI TOT 0.5 MG/DL 2013 Unknown COMPREHENSIVE METABOLIC 90480 ALK PHOS 56 U/L 2013 Unknown COMPREHENSIVE METABOLIC 14766 SODIUM 138 MMOL/L 08/27 Unknown COMPREHENSIVE METABOLIC 01828 CREATININE 0.95 MG/DL 08/10 Unknown COMPREHENSIVE METABOLIC 73684 CALCIUM 9.8 MG/DL 2013 Unknown COMPREHENSIVE METABOLIC 13384 POTASSIUM 3.5 MMOL/L 08/27 Unknown COMPREHENSIVE METABOLIC 59370 PROT TOT 6.8 GM/DL 2013 Unknown COMPREHENSIVE METABOLIC 97878 Glucose 90 MG/DL 2013 Unknown COMPREHENSIVE METABOLIC 97591 BICARB 34 MMOL/L 2013 Unknown COMPREHENSIVE METABOLIC 14361 ANION GAP 5 MEQ/L 2013 Unknown LIPASE 42621 LIPASE 11 IU/L 07/21/2014 Unknown AMYLASE 21568 AMYLASE 39 IU/L 07/21/2014 Unknown HEMOGLOBIN A1C (GLYCOSYLATED) 0548829 A1C HPLC 36111-2 6.2 % 03/05/2013 Unknown THYROID STIMULATING HORMONE 13767 TSH 6.986 uIU/ML 03/05/2013 Unknown COMPLETE BLOOD COUNT 4737993 WBC 12.7 10e9/L 013 Unknown COMPLETE BLOOD COUNT 0366161 RBC 4.53 10e12/L 2012 Unknown COMPLETE BLOOD COUNT 5391934 HGB 14.7 g/dL 3 Unknown COMPLETE BLOOD COUNT 1837677 HCT DET 43.1 % 3 Unknown COMPLETE BLOOD COUNT 5794462 MCV 95.1 fL 3 Unknown COMPLETE BLOOD COUNT 7122134 MCH 32.5 pg 3 Unknown COMPLETE BLOOD COUNT 3717589 MCHC 34.1 g/dL 3 Unknown COMPLETE BLOOD COUNT 0908949 PLT 346 10e9/L 03/05/20 13 Unknown COMPLETE BLOOD COUNT 9668662 MPV 9.5 fL 3 Unknown COMPLETE BLOOD COUNT 3950644 CADEN % 67.6 % 3 Unknown COMPLETE BLOOD COUNT 9933233 LY % 22.1 % 3 Unknown COMPLETE BLOOD COUNT 9858824 MON % 6.6 % 3 Unknown COMPLETE BLOOD COUNT 3229873 EOS % 3.3 % 3 Unknown COMPLETE BLOOD COUNT 4753902 BASO % 0.4 % 3 Unknown COMPLETE BLOOD COUNT 0758295 RDW 14.0 % 3 Unknown COMPLETE BLOOD COUNT [id number] ABS CADEN 8.59 10e9/L 013 Unknown COMPLETE BLOOD COUNT 7249724 ABS LYMPH 2.81 10e9/L 013 Unknown COMPLETE BLOOD COUNT 4349407 ABS MONO 0.84 10e9/L 013 Unknown COMPLETE BLOOD COUNT 5503002 ABS EOS 0.42 10e9/L 013 Unknown COMPLETE BLOOD COUNT [id number] ABS BASO 0.05 10e9/L 013 Unknown COMPLETE BLOOD COUNT 7473376 RDW-SD 46.0 fL 3 Unknown FREE T4 32950 FREE T4 1.14 NG/DL 03/05/2013 Unknown COMPREHENSIVE METABOLIC 82371 AST 17 U/L 2012 Unknown COMPREHENSIVE METABOLIC 35033 ALT 12 IU/L 2012 Unknown COMPREHENSIVE METABOLIC 22052 BUN 24 MG/DL 2012 Unknown COMPREHENSIVE METABOLIC 33293 ALBUMIN 4.2 GM/DL 2012 Unknown COMPREHENSIVE METABOLIC 84163 CHLORIDE 93 MMOL/L 2012 Unknown COMPREHENSIVE METABOLIC 58197 BILI TOT 0.5 MG/DL 2012 Unknown COMPREHENSIVE METABOLIC 53095 ALK PHOS 75 U/L 2012 Unknown COMPREHENSIVE METABOLIC 14512 SODIUM 141 MMOL/L 03/05 Unknown COMPREHENSIVE METABOLIC 74108 CREATININE 1.36 MG/DL 02/09 Unknown COMPREHENSIVE METABOLIC 22624 CALCIUM 9.2 MG/DL 2012 Unknown COMPREHENSIVE METABOLIC 18054 POTASSIUM 3.1 MMOL/L 03/05 Unknown COMPREHENSIVE METABOLIC 82766 PROT TOT 6.9 GM/DL 2012 Unknown COMPREHENSIVE METABOLIC 41739 Glucose 123 MG/DL 2012 Unknown COMPREHENSIVE METABOLIC 53208 BICARB 36 MMOL/L 2012 Unknown COMPREHENSIVE METABOLIC 43979 ANION GAP 12 MEQ/L 2012 Unknown GFR CALC 1312729 GFR AA 51.0L ML/MIN 03/05/2013 Unknow n GFR CALC 8429677 GFR NON-AA 42.0L ML/MIN 03/05/2013 Unkno wn COMPREHENSIVE METABOLIC 41935 AST 14 U/L 2012 Unknown COMPREHENSIVE METABOLIC 49913 ALT 11 IU/L 2012 Unknown COMPREHENSIVE METABOLIC 51400 BUN 16 MG/DL 2012 Unknown COMPREHENSIVE METABOLIC 68318 ALBUMIN 4.2 GM/DL 2012 Unknown COMPREHENSIVE METABOLIC 02953 CHLORIDE 98 MMOL/L 2012 Unknown COMPREHENSIVE METABOLIC 41602 BILI TOT 0.4 MG/DL 2012 Unknown COMPREHENSIVE METABOLIC 85783 ALK PHOS 77 U/L 2012 Unknown COMPREHENSIVE METABOLIC 97445 SODIUM 139 MMOL/L 09/25 Unknown COMPREHENSIVE METABOLIC 04015 CREATININE 0.86 MG/DL 09/10 Unknown COMPREHENSIVE METABOLIC 98448 CALCIUM 9.5 MG/DL 2012 Unknown COMPREHENSIVE METABOLIC 65748 POTASSIUM 3.8 MMOL/L 09/25 Unknown COMPREHENSIVE METABOLIC 12891 PROT TOT 6.8 GM/DL 2012 Unknown COMPREHENSIVE METABOLIC 63354 Glucose 91 MG/DL 2012 Unknown COMPREHENSIVE METABOLIC 60317 BICARB 32 MMOL/L 2012 Unknown COMPREHENSIVE METABOLIC 63323 ANION GAP 9 MEQ/L 2012 Unknown FREE T4 29193 FREE T4 0.98 NG/DL 09/25/2012 Unknown THYROID STIMULATING HORMONE 94327 TSH 1.736 uIU/ML 09/25/2012 Unknown C-REACTIVE PROTEIN (CRP) QUANT 33003 CRP 2.3 MG/DL 09/25/2012 Unknown COMPLETE BLOOD COUNT [id number] WBC 11.9 10e9/L 013 Unknown COMPLETE BLOOD COUNT [id number] RBC 4.87 10e12/L 2012 Unknown COMPLETE BLOOD COUNT [id number] HGB 15.1 g/dL 3 Unknown COMPLETE BLOOD COUNT [id number] HCT DET 44.8 % 3 Unknown COMPLETE BLOOD COUNT [id number] MCV 92.0 fL 3 Unknown COMPLETE BLOOD COUNT [id number] MCH 31.0 pg 3 Unknown COMPLETE BLOOD COUNT [id number] MCHC 33.7 g/dL 3 Unknown COMPLETE BLOOD COUNT [id number] PLT 343 10e9/L 09/25/19 13 Unknown COMPLETE BLOOD COUNT [id number] MPV 9.0 fL 3 Unknown COMPLETE BLOOD COUNT [id number] CADEN % 68.2 % 3 Unknown COMPLETE BLOOD COUNT [id number] LY % 22.4 % 3 Unknown COMPLETE BLOOD COUNT [id number] MON % 6.4 % 3 Unknown COMPLETE BLOOD COUNT [id number] EOS % 2.7 % 3 Unknown COMPLETE BLOOD COUNT [id number] BASO % 0.3 % 3 Unknown COMPLETE BLOOD COUNT [id number] RDW 13.8 % 3 Unknown COMPLETE BLOOD COUNT [id number] ABS CADEN 8.12 10e9/L 013 Unknown COMPLETE BLOOD COUNT [id number] ABS LYMPH 2.67 10e9/L 013 Unknown COMPLETE BLOOD COUNT [id number] ABS MONO 0.76 10e9/L 013 Unknown COMPLETE BLOOD COUNT [id number] ABS EOS 0.32 10e9/L 013 Unknown COMPLETE BLOOD COUNT [id number] ABS BASO 0.04 10e9/L 013 Unknown COMPLETE BLOOD COUNT [id number] RDW-SD 45.6 fL 3 Unknown GFR CALC [id number] GFR AA >60 ML/MIN 09/25/2012 Unknown GFR CALC [id number] GFR NON-AA >60 ML/MIN 09/25/2012 Unknown ERYTHROCYTE SEDIMENTATION RATE 05853 ESR 19 MM/HR 05/06/2012 Unknown VITAMIN B 12 FOLIC ACID [id number] VIT B 12 922 PG/ML 04/11 Unknown VITAMIN B 12 FOLIC ACID [id number] FOLIC ACID 13.6 NG/ML Unknown URIC ACID 25316 URIC ACID 7.8 MG/DL 05/06/2012 Unknown COMPLETE BLOOD COUNT [id number] WBC 11.9 10e9/L 012 Unknown COMPLETE BLOOD COUNT 50917 RBC 5.30 10e12/L 2011 Unknown COMPLETE BLOOD COUNT 33909 HGB 16.6 g/dL 2 Unknown COMPLETE BLOOD COUNT 45826 HCT DET 47.2 % 2 Unknown COMPLETE BLOOD COUNT 29823 MCV 89.1 fL 2 Unknown COMPLETE BLOOD COUNT 55720 MCH 31.3 pg 2 Unknown COMPLETE BLOOD COUNT 37372 MCHC 35.2 g/dL 2 Unknown COMPLETE BLOOD COUNT 85355 PLT 362 10e9/L 05/06/20 12 Unknown COMPLETE BLOOD COUNT 01384 MPV 9.4 fL 2 Unknown COMPLETE BLOOD COUNT 31304 CADEN % 68.2 % 2 Unknown COMPLETE BLOOD COUNT 69168 LY % 22.0 % 2 Unknown COMPLETE BLOOD COUNT 69045 MON % 6.9 % 2 Unknown COMPLETE BLOOD COUNT 56615 EOS % 2.6 % 2 Unknown COMPLETE BLOOD COUNT 01980 BASO % 0.3 % 2 Unknown COMPLETE BLOOD COUNT 43118 RDW 12.8 % 2 Unknown COMPLETE BLOOD COUNT 76468 ABS CADEN 8.12 10e9/L 012 Unknown COMPLETE BLOOD COUNT 26708 ABS LYMPH 2.62 10e9/L 012 Unknown COMPLETE BLOOD COUNT 33107 ABS MONO 0.82 10e9/L 012 Unknown COMPLETE BLOOD COUNT 67601 ABS EOS 0.31 10e9/L 012 Unknown COMPLETE BLOOD COUNT 46240 ABS BASO 0.04 10e9/L 012 Unknown COMPLETE BLOOD COUNT 27412 RDW-SD 41.5 fL 2 Unknown GFR CALC 1390962 GFR AA >60 ML/MIN 05/06/2012 Unknown GFR CALC [id number] GFR NON-AA 58.0L ML/MIN 05/06/2012 Unkno wn FREE T4 76591 FREE T4 1.15 NG/DL 05/06/2012 Unknown THYROID STIMULATING HORMONE 82313 TSH 1.568 uIU/ML 05/06/2012 Unknown COMPREHENSIVE METABOLIC 94760 AST 20 U/L 2011 Unknown COMPREHENSIVE METABOLIC 01387 ALT 12 IU/L 2011 Unknown COMPREHENSIVE METABOLIC 95565 BUN 20 MG/DL 2011 Unknown COMPREHENSIVE METABOLIC 51160 ALBUMIN 4.5 GM/DL 2011 Unknown COMPREHENSIVE METABOLIC 29433 CHLORIDE 91 MMOL/L 2011 Unknown COMPREHENSIVE METABOLIC 55660 BILI TOT 0.4 MG/DL 2011 Unknown COMPREHENSIVE METABOLIC 96661 ALK PHOS 73 U/L 2011 Unknown COMPREHENSIVE METABOLIC 86684 SODIUM 139 MMOL/L 05/06 Unknown COMPREHENSIVE METABOLIC 12882 CREATININE 1.02 MG/DL 04/11 Unknown COMPREHENSIVE METABOLIC 11511 CALCIUM 9.7 MG/DL 2011 Unknown COMPREHENSIVE METABOLIC 77000 POTASSIUM 3.1 MMOL/L 05/06 Unknown COMPREHENSIVE METABOLIC 66373 PROT TOT 7.3 GM/DL 2011 Unknown COMPREHENSIVE METABOLIC 96305 Glucose 118 MG/DL 2011 Unknown COMPREHENSIVE METABOLIC 52381 BICARB 33 MMOL/L 2011 Unknown COMPREHENSIVE METABOLIC 64205 ANION GAP 15 MEQ/L 2011 Unknown Procedures Procedure Codes Date COMPREHEN METABOLIC PANEL CPT-4: 32845 02/12/2020 A1C HPLC CPT-4: 09612 02/12/2020 ROUTINE VENIPUNCTURE CPT-4: 05273 09/29/2019 URINALYSIS NONAUTO W/O SCOPE CPT-4: 59403 09/29/2019 COMPREHEN METABOLIC PANEL CPT-4: 99159 09/29/2019 LIPID PANEL CPT-4: 84489 09/29/2019 A1C HPLC CPT-4: 26506 09/29/2019 ASSAY OF FREE THYROXINE CPT-4: 29971 09/29/2019 ASSAY THYROID STIM HORMONE CPT-4: 67412 09/29/2019 COMPLETE CBC W/AUTO DIFF WBC CPT-4: 95876 09/29/2019 URINALYSIS NONAUTO W/O SCOPE CPT-4: 65511 09/30/2018 MICROALBUMIN QUANTITATIVE CPT-4: 27712 09/30/2018 CEFTRIAXONE SODIUM INJECTION CPT-4: J0696 06/19/2018 THER/PROPH/DIAG INJ SC/IM CPT-4: 09643 06/19/2018 CEFTRIAXONE SODIUM INJECTION CPT-4: J0696 06/17/2018 THER/PROPH/DIAG INJ SC/IM CPT-4: 01731 06/17/2018 THER/PROPH/DIAG INJ SC/IM CPT-4: 47765 05/16/2018 KETOROLAC TROMETHAMINE INJ CPT-4: J1885 05/16/2018 ONDANSETRON HCL INJECTION CPT-4: J2405 05/16/2018 THER/PROPH/DIAG INJ SC/IM CPT-4: 80824 05/16/2018 ROUTINE VENIPUNCTURE CPT-4: 47680 03/20/2018 COMPREHEN METABOLIC PANEL CPT-4: 66642 03/20/2018 DEXAMETHASONE SODIUM PHOS CPT-4: J1100 02/11/2018 THER/PROPH/DIAG INJ SC/IM CPT-4: 29528 02/11/2018 TRIAMCINOLONE ACET INJ NOS CPT-4: J3301 02/11/2018 CEFTRIAXONE SODIUM INJECTION CPT-4: J0696 02/01/2018 THER/PROPH/DIAG INJ SC/IM CPT-4: 59248 02/01/2018 CEFTRIAXONE SODIUM INJECTION CPT-4: J0696 01/30/2018 THER/PROPH/DIAG INJ SC/IM CPT-4: 52887 01/30/2018 ROUTINE VENIPUNCTURE CPT-4: 28805 12/10/2017 ASSAY OF FREE THYROXINE CPT-4: 96633 12/10/2017 ASSAY THYROID STIM HORMONE CPT-4: 34819 12/10/2017 COMPREHEN METABOLIC PANEL CPT-4: 86014 12/10/2017 COMPLETE CBC W/AUTO DIFF WBC CPT-4: 05588 12/10/2017 LIPID PANEL CPT-4: 00414 12/10/2017 A1C HPLC CPT-4: 53063 12/10/2017 CEFTRIAXONE SODIUM INJECTION CPT-4: J0696 12/10/2017 THER/PROPH/DIAG INJ SC/IM CPT-4: 83665 12/10/2017 CEFTRIAXONE SODIUM INJECTION CPT-4: J0696 12/07/2017 THER/PROPH/DIAG INJ SC/IM CPT-4: 02584 12/07/2017 DEXAMETHASONE SODIUM PHOS CPT-4: J1100 12/07/2017 THER/PROPH/DIAG INJ SC/IM CPT-4: 65471 12/07/2017 CEFTRIAXONE SODIUM INJECTION CPT-4: J0696 10/08/2017 THER/PROPH/DIAG INJ SC/IM CPT-4: 19494 10/08/2017 CEFTRIAXONE SODIUM INJECTION CPT-4: J0696 09/21/2017 THER/PROPH/DIAG INJ SC/IM CPT-4: 28451 09/21/2017 CEFTRIAXONE SODIUM INJECTION CPT-4: J0696 09/20/2017 THER/PROPH/DIAG INJ SC/IM CPT-4: 02995 09/20/2017 REMOVAL OF NAIL PLATE CPT-4: 35858 08/29/2017 THER/PROPH/DIAG INJ SC/IM CPT-4: 30440 08/29/2017 TRIAMCINOLONE ACET INJ NOS CPT-4: J3301 08/29/2017 CEFTRIAXONE SODIUM INJECTION CPT-4: J0696 08/29/2017 THER/PROPH/DIAG INJ SC/IM CPT-4: 00304 08/29/2017 DESTRUCT PREMALG LESION (Cryosurgery) CPT-4: 33534 ROUTINE VENIPUNCTURE CPT-4: 75505 06/27/2017 ASSAY OF FREE THYROXINE CPT-4: 80565 06/27/2017 ASSAY THYROID STIM HORMONE CPT-4: 79411 06/27/2017 COMPREHEN METABOLIC PANEL CPT-4: 76861 06/27/2017 COMPLETE CBC W/AUTO DIFF WBC CPT-4: 10405 06/27/2017 EXC TR-EXT B9+REECE 0.5 CM< CPT-4: 15486 01/24/2017 THER/PROPH/DIAG INJ SC/IM CPT-4: 86050 08/02/2016 DEXAMETHASONE SODIUM PHOS CPT-4: J1100 08/02/2016 DESTRUCT PREMALG LESION (Cryosurgery) CPT-4: 94261 EXC TR-EXT B9+REECE 0.5 CM< CPT-4: 57820 08/01/2016 AEROBIC WOUND CULTURE & STN CPT-4: 76477 07/06/2016 CEFTRIAXONE SODIUM INJECTION CPT-4: J0696 05/25/2016 THER/PROPH/DIAG INJ SC/IM CPT-4: 90172 05/25/2016 THER/PROPH/DIAG INJ SC/IM CPT-4: 62987 04/26/2016 DEXAMETHASONE SODIUM PHOS CPT-4: J1100 04/26/2016 CEFTRIAXONE SODIUM INJECTION CPT-4: J0696 04/26/2016 THER/PROPH/DIAG INJ SC/IM CPT-4: 39592 04/26/2016 THER/PROPH/DIAG INJ SC/IM CPT-4: 72547 02/09/2016 TRIAMCINOLONE ACET INJ NOS CPT-4: J3301 02/09/2016 URINALYSIS NONAUTO W/O SCOPE CPT-4: 82215 01/24/2016 URINE CULTURE/ COLONY COUNT CPT-4: 33501 01/24/2016 THER/PROPH/DIAG INJ SC/IM CPT-4: 08092 12/08/2015 TRIAMCINOLONE ACET INJ NOS CPT-4: J3301 12/08/2015 THER/PROPH/DIAG INJ SC/IM CPT-4: 61838 10/07/2015 TRIAMCINOLONE ACET INJ NOS CPT-4: J3301 10/07/2015 DESTRUCT PREMALG LESION (Cryosurgery) CPT-4: 80296 THER/PROPH/DIAG INJ SC/IM CPT-4: 93062 03/16/2015 METHYLPREDNISOLONE 40 MG INJ CPT-4: J1030 03/16/2015 DESTRUCT PREMALG LESION (Cryosurgery) CPT-4: 25049 THER/PROPH/DIAG INJ SC/IM CPT-4: 57067 09/11/2014 METHYLPREDNISOLONE 40 MG INJ CPT-4: J1030 09/11/2014 TRIAMCINOLONE ACET INJ NOS CPT-4: J3301 09/11/2014 CEFTRIAXONE SODIUM INJECTION CPT-4: J0696 09/11/2014 THER/PROPH/DIAG INJ SC/IM CPT-4: 49964 09/11/2014 ROUTINE VENIPUNCTURE CPT-4: 51147 08/27/2014 COMPREHEN METABOLIC PANEL CPT-4: 40950 08/27/2014 COMPLETE CBC W/AUTO DIFF WBC CPT-4: 71572 08/27/2014 LIPID PANEL CPT-4: 43464 08/27/2014 ROUTINE VENIPUNCTURE CPT-4: 08317 07/21/2014 ASSAY OF AMYLASE CPT-4: 01366 07/21/2014 ASSAY OF LIPASE CPT-4: 97639 07/21/2014 THER/PROPH/DIAG INJ SC/IM CPT-4: 41308 07/15/2014 TRIAMCINOLONE ACET INJ NOS CPT-4: J3301 07/15/2014 ROUTINE VENIPUNCTURE CPT-4: 98002 05/14/2014 ASSAY OF FREE THYROXINE CPT-4: 23652 05/14/2014 ASSAY THYROID STIM HORMONE CPT-4: 60533 05/14/2014 COMPREHEN METABOLIC PANEL CPT-4: 89363 05/14/2014 COMPLETE CBC W/AUTO DIFF WBC CPT-4: 15605 05/14/2014 LIPID PANEL CPT-4: 94411 05/14/2014 CEFTRIAXONE SODIUM INJECTION CPT-4: J0696 04/21/2014 THER/PROPH/DIAG INJ SC/IM CPT-4: 04146 04/21/2014 THER/PROPH/DIAG INJ SC/IM CPT-4: 15923 04/21/2014 TRIAMCINOLONE ACET INJ NOS CPT-4: J3301 04/21/2014 THER/PROPH/DIAG INJ SC/IM CPT-4: 29310 03/04/2014 METHYLPREDNISOLONE 40 MG INJ CPT-4: J1030 03/04/2014 TRIAMCINOLONE ACET INJ NOS CPT-4: J3301 03/04/2014 CEFTRIAXONE SODIUM INJECTION CPT-4: J0696 03/04/2014 THER/PROPH/DIAG INJ SC/IM CPT-4: 88076 03/04/2014 TDAP VACCINE 7 YRS/> IM CPT-4: 28201 02/27/2014 IMMUNIZATION ADMIN CPT-4: 94827 02/27/2014 DESTRUCT PREMALG LESION (Cryosurgery) CPT-4: 74880 DESTRUCT PREMALG LES 2-14 CPT-4: 58071 01/13/2014 THER/PROPH/DIAG INJ SC/IM CPT-4: 03551 10/21/2013 METHYLPREDNISOLONE 40 MG INJ CPT-4: J1030 10/21/2013 TRIAMCINOLONE ACET INJ NOS CPT-4: J3301 10/21/2013 CEFTRIAXONE SODIUM INJECTION CPT-4: J0696 08/27/2013 THER/PROPH/DIAG INJ SC/IM CPT-4: 61927 08/27/2013 THER/PROPH/DIAG INJ SC/IM CPT-4: 41053 08/27/2013 METHYLPREDNISOLONE 40 MG INJ CPT-4: J1030 08/27/2013 TRIAMCINOLONE ACET INJ NOS CPT-4: J3301 08/27/2013 THER/PROPH/DIAG INJ SC/IM CPT-4: 51307 06/23/2013 METHYLPREDNISOLONE 40 MG INJ CPT-4: J1030 06/23/2013 TRIAMCINOLONE ACET INJ NOS CPT-4: J3301 06/23/2013 THER/PROPH/DIAG INJ SC/IM CPT-4: 89296 05/26/2013 METHYLPREDNISOLONE 40 MG INJ CPT-4: J1030 05/26/2013 TRIAMCINOLONE ACET INJ NOS CPT-4: J3301 05/26/2013 ROUTINE VENIPUNCTURE CPT-4: 57383 03/05/2013 ASSAY OF FREE THYROXINE CPT-4: 85703 03/05/2013 ASSAY THYROID STIM HORMONE CPT-4: 53673 03/05/2013 COMPREHEN METABOLIC PANEL CPT-4: 96214 03/05/2013 COMPLETE CBC W/AUTO DIFF WBC CPT-4: 80376 03/05/2013 A1C GLYCOSYLATED HEMOGLOBIN TEST CPT-4: 45324 013 DRAIN/INJECT JOINT/BURSA CPT-4: 08230 12/04/2012 METHYLPREDNISOLONE 40 MG INJ CPT-4: J1030 12/04/2012 TRIAMCINOLONE ACET INJ NOS CPT-4: J3301 12/04/2012 CEFTRIAXONE SODIUM INJECTION CPT-4: J0696 11/21/2012 THER/PROPH/DIAG INJ SC/IM CPT-4: 10060 11/21/2012 THER/PROPH/DIAG INJ SC/IM CPT-4: 48400 10/14/2012 METHYLPREDNISOLONE 40 MG INJ CPT-4: J1030 10/14/2012 TRIAMCINOLONE ACET INJ NOS CPT-4: J3301 10/14/2012 URINALYSIS NONAUTO W/O SCOPE CPT-4: 75582 09/27/2012 ROUTINE VENIPUNCTURE CPT-4: 26142 09/25/2012 ASSAY OF FREE THYROXINE CPT-4: 55727 09/25/2012 ASSAY THYROID STIM HORMONE CPT-4: 12763 09/25/2012 COMPREHEN METABOLIC PANEL CPT-4: 75207 09/25/2012 COMPLETE CBC W/AUTO DIFF WBC CPT-4: 81894 09/25/2012 C-REACTIVE PROTEIN CPT-4: 49646 09/25/2012 THER/PROPH/DIAG INJ SC/IM CPT-4: 96225 08/29/2012 METHYLPREDNISOLONE 40 MG INJ CPT-4: J1030 08/29/2012 TRIAMCINOLONE ACET INJ NOS CPT-4: J3301 08/29/2012 DESTRUCT PREMALG LESION (Cryosurgery) CPT-4: 78500 THER/PROPH/DIAG INJ SC/IM CPT-4: 51153 05/06/2012 METHYLPREDNISOLONE 40 MG INJ CPT-4: J1030 05/06/2012 TRIAMCINOLONE ACET INJ NOS CPT-4: J3301 05/06/2012 VITAMIN B 12 FOLIC ACID CPT-4: 55517|28567 05/06/2012 RBC SED RATE AUTOMATED CPT-4: 23712 05/06/2012 ROUTINE VENIPUNCTURE CPT-4: 97829 05/06/2012 ASSAY OF FREE THYROXINE CPT-4: 26586 05/06/2012 ASSAY THYROID STIM HORMONE CPT-4: 42406 05/06/2012 COMPREHEN METABOLIC PANEL CPT-4: 31093 05/06/2012 COMPLETE CBC W/AUTO DIFF WBC CPT-4: 40594 05/06/2012 ASSAY OF BLOOD/URIC ACID CPT-4: 65800 05/06/2012 THER/PROPH/DIAG INJ SC/IM CPT-4: 33868 03/19/2012 KETOROLAC TROMETHAMINE INJ CPT-4: J1885 03/19/2012 KETOROLAC TROMETHAMINE INJ CPT-4: J1885 01/30/2012 THER/PROPH/DIAG INJ SC/IM CPT-4: 57294 01/30/2012 PROMETHAZINE HCL INJECTION CPT-4: J2550 01/30/2012 THER/PROPH/DIAG INJ SC/IM CPT-4: 46956 01/24/2012 METHYLPREDNISOLONE 40 MG INJ CPT-4: J1030 01/24/2012 TRIAMCINOLONE ACET INJ NOS CPT-4: J3301 01/24/2012 THER/PROPH/DIAG INJ SC/IM CPT-4: 01666 09/13/2011 KETOROLAC TROMETHAMINE INJ CPT-4: J1885 09/13/2011 THER/PROPH/DIAG INJ SC/IM CPT-4: 11412 09/13/2011 PROMETHAZINE HCL INJECTION CPT-4: J2550 09/13/2011 CEFTRIAXONE SODIUM INJECTION CPT-4: J0696 07/20/2011 THER/PROPH/DIAG INJ SC/IM CPT-4: 02425 07/20/2011 THER/PROPH/DIAG INJ SC/IM CPT-4: 29633 07/20/2011 METHYLPREDNISOLONE INJECTION CPT-4: J2930 07/20/2011 URINALYSIS NONAUTO W/O SCOPE CPT-4: 03492 05/09/2011 CEFTRIAXONE SODIUM INJECTION CPT-4: J0696 05/09/2011 THER/PROPH/DIAG INJ SC/IM CPT-4: 47309 05/09/2011 THER/PROPH/DIAG INJ SC/IM CPT-4: 10456 05/09/2011 PROMETHAZINE HCL INJECTION CPT-4: J2550 05/09/2011 HYDRATION IV INFUSION INIT CPT-4: 12328 05/09/2011 DESTRUCT PREMALG LESION (Cryosurgery) CPT-4: 52509 DESTRUCT PREMALG LES 2-14 CPT-4: 35714 07/19/2010 REMOVAL OF SKIN TAGS <W/15 CPT-4: 54847 05/30/2010 THER/PROPH/DIAG INJ SC/IM CPT-4: 60027 04/05/2010 CEFTRIAXONE SODIUM INJECTION CPT-4: J0696 04/05/2010 TRIAMCINOLONE ACET INJ NOS CPT-4: J3301 04/05/2010 METHYLPREDNISOLONE 40 MG INJ CPT-4: J1030 04/05/2010 THER/PROPH/DIAG INJ SC/IM CPT-4: 15961 04/05/2010 TRIAMCINOLONE ACET INJ NOS CPT-4: J3301 03/09/2010 METHYLPREDNISOLONE 40 MG INJ CPT-4: J1030 03/09/2010 THER/PROPH/DIAG INJ SC/IM CPT-4: 36056 03/09/2010 THER/PROPH/DIAG INJ SC/IM CPT-4: 00452 03/09/2010 CEFTRIAXONE SODIUM INJECTION CPT-4: J0696 03/09/2010 [...] 1: 132/80 Code: 8480-6 BMI: 35.8 Code: 63498-7 Heart Rate 1: 88 bpm Height: 5'4" Respiratory Rate: 20 bpm SpO2: 95% Tempera ture: 36.9 (C) / 98.5 (F) Weight: 210 lbs 05/28/2019 Blood Pressure 1: 126/82 Code: 8480-6 BMI: 35.0 Code: 36884-2 Heart Rate 1: 88 bpm Height: 5'4" [...] 1: 128/90 Code: 8480-6 BMI: 37.2 Code: 65625-1 Heart Rate 1: 84 bpm Height: 5'4" Respiratory Rate: 20 bpm SpO2: 95% Tempera ture: 36.6 (C) / 97.8 (F) Weight: 217 lbs 08/27/2018 Blood Pressure 1: 128/88 Code: 8480-6 BMI: 38.3 Code: 33444-6 Heart Rate 1: 84 bpm Height: 5'4" [...] 1: 119/72 Code: 8480-6 BMI: 37.4 Code: 60795-0 Heart Rate 1: 82 bpm Height: 5'4" Respiratory Rate: 12 bpm SpO2: 94% Tempera ture: 35.2 (C) / 95.4 (F) Weight: 218 lbs 12/18/2017 Blood Pressure 1: 128/86 Code: 8480-6 BMI: 37.8 Code: 83026-4 Heart Rate 1: 84 bpm Height: 5'4" [...] 1: 128/82 Code: 8480-6 BMI: 35.5 Code: 07543-8 Heart Rate 1: 84 bpm Height: 5'4" [...] 1: 128/82 Code: 8480-6 BMI: 30.2 Code: 77175-5 Heart Rate 1: 80 bpm Height: 5'4" [...] 1: 128/86 Code: 8480-6 BMI: 32.8 Code: 44084-3 Heart Rate 1: 66 bpm Height: 5'4" Respiratory Rate: 18 bpm Temperature: 36 .3 (C) / 97.3 (F) Weight: 191 lbs 06/23/2013 Blood Pressure 1: 132/94 Code: 8480-6 BMI: 34.0 Code: 38533-6 Heart Rate 1: 84 bpm Height: 5'4" Respiratory Rate: 20 bpm Temperature: 36 .8 (C) / 98.2 (F) Weight: 198 lbs 05/26/2013 Blood Pressure 1: 114/80 Code: 8480-6 BMI: 35.0 Code: 35232-8 Heart Rate 1: 80 bpm Height: 5'4" Respiratory Rate: 20 bpm Temperature: 36 .4 (C) / 97.6 (F) Weight: 204 lbs 04/16/2013 Blood Pressure 1: 114/82 Code: 8480-6 BMI: 36.7 Code: 49140-4 Heart Rate 1: 84 bpm Height: 5'4" Respiratory Rate: 20 bpm Temperature: 36 .7 (C) / 98.0 (F) Weight: 214 lbs 03/05/2013 Blood Pressure 1: 136/90 Code: 8480-6 BMI: 37.1 Code: 49401-9 Heart Rate 1: 84 bpm Height: 5'4" [...] 1: 168/114 Code: 8480-6 BMI: 36.2 Code: 93251-1 Heart Rate 1: 104 bpm Height: 5'4" Respiratory Rate: 20 bpm Temperature: 36 .8 (C) / 98.2 (F) Weight: 211 lbs 11/22/2012 Blood Pressure 1: 128/90 Code: 8480-6 Heart Rate 1: 88 bpm Respiratory Rate: 20 bpm SpO2: 96% Temperature: 36.8 (C) / 98.2 (F) 11/21/2012 Blood Pressure 1: 146/100 Code: 8480-6 BMI: 35.7 Code: 88793-7 Heart Rate 1: 96 bpm Height: 5'4" [...] 1: 138/100 Code: 8480-6 BMI: 35.7 Code: 99037-1 Heart Rate 1: 96 bpm Height: 5'4" Respiratory Rate: 20 bpm Temperature: 36 .8 (C) / 98.2 (F) Weight: 208 lbs 05/06/2012 Blood Pressure 1: 154/102 Code: 8480-6 BMI: 34.7 Code: 91266-7 Heart Rate 1: 116 bpm Height: 5'4" Respiratory Rate: 20 bpm Temperature: 36 .8 (C) / 98.2 (F) Weight: 202 lbs 04/03/2012 Blood Pressure 1: 134/94 Code: 8480-6 BMI: 34.8 Code: 06698-9 Heart Rate 1: 108 bpm Height: 5'4" Respiratory Rate: 20 bpm Temperature: 36 .8 (C) / 98.2 (F) Weight: 203 lbs 03/19/2012 Blood Pressure 1: 148/106 Code: 8480-6 BMI: 35.0 Code: 18732-1 Heart Rate 1: 100 bpm Height: 5'4" Respiratory Rate: 20 bpm Temperature: 36 .6 (C) / 97.9 (F) Weight: 204 lbs 02/22/2012 Blood Pressure 1: 146/94 Code: 8480-6 He art Rate 1: 88 bpm 02/21/2012 Blood Pressure 1: 172/120 Code: 8480-6 B lood Pressure 2: 152/106 Code: 8480-6 Heart Rate 1: 116 bpm 02/20/2012 Blood Pressure 1: 160/100 Code: 8480-6 BMI: 32.0 Code: 81024-2 Heart Rate 1: 84 bpm Height: 5'7" Temperature: 36.5 (C) / 97.7 (F) Weight: 204 lbs 01/30/2012 Blood Pressure 1: 152/110 Code: 8480-6 BMI: 32.0 Code: 10050-2 Heart Rate 1: 116 bpm Height: 5'7" Respiratory Rate: 20 bpm Temperature: 37 .0 (C) / 98.6 (F) Weight: 204 lbs 01/24/2012 Blood Pressure 1: 146/100 Code: 8480-6 BMI: 32.0 Code: 11812-3 Heart Rate 1: 100 bpm Height: 5'7" Respiratory Rate: 20 bpm Temperature: 36 .7 (C) / 98.0 (F) Weight: 204 lbs 01/10/2012 Blood Pressure 1: 156/94 Code: 8480-6 BMI: 32.6 Code: 45078-4 Heart Rate 1: 72 bpm Height: 5'7" Respiratory Rate: 20 bpm Temperature: 36 .8 (C) / 98.2 (F) Weight: 208 lbs 12/11/2011 Blood Pressure 1: 146/100 Code: 8480-6 Heart Rat e 1: 116 bpm Height: 5'7" Respiratory Rate: 20 bpm Temperature: 36.9 (C) / 98.4 (F) We ight: 11/09/2011 Blood Pressure 1: 148/96 Code: 8480-6 BMI: 32.1 Code: 43164-7 Heart Rate 1: 116 bpm Height: 5'7" Respiratory Rate: 20 bpm Temperature: 36 .7 (C) / 98.0 (F) Weight: 205 lbs 09/13/2011 Blood Pressure 1: 126/88 Code: 8480-6 Heart Rate 1: 88 bpm Height: 5'7" Respiratory Rate: 20 bpm Temperature: 36.9 (C) / 98.4 (F) We ight: 08/31/2011 Blood Pressure 1: 118/82 Code: 8480-6 BMI: 32.0 Code: 43880-7 Heart Rate 1: 80 bpm Height: 5'7" Temperature: 36.4 (C) / 97.6 (F) Weight: 204 lbs 07/06/2011 Blood Pressure 1: 128/86 Code: 8480-6 BMI: 30.9 Code: 75118-3 Heart Rate 1: 92 bpm Height: 5'7" Respiratory Rate: 20 bpm Temperature: 36 .9 (C) / 98.4 (F) Weight: 197 lbs 06/06/2011 Blood Pressure 1: 112/74 Code: 8480-6 BMI: 31.0 Code: 39668-6 Heart Rate 1: 72 bpm Height: 5'7" [...] 1: 128/92 Code: 8480-6 BMI: 33.6 Code: 32229-2 Heart Rate 1: 104 bpm Height: 5'4" [...] 02/09/2016 insomnia 01/24/2016 cough 12/23/2015 patient is victoriasudarshan velez kimo and steroid injection chest congestion 12/08/2015 injection(s) [...] 02/20/2012 headache 01/30/2012 edema 01/24/2012 Currently just taksudarshan velez Triam/HCTZ shoulder pain 01/10/2012 thinks these are [...] Check-up Encounters Encounter Performer Location Codes Date ([id number]) OFFICE/OUTPATIENT VISIT EST Diagnosis: Blister (nonthermal), right foot, initial encounter[ICD10: S90.821A] Diagnosis: Type 2 diabetes mellitus with hyperglycemia[ICD10: E11.65] Diagnosis: Lower extremity edema[ICD10: R60.0] Kathleen COLON [employer] [facility] CPT-4: 86395 02/12/2020 ([id number]) OFFICE/OUTPATIENT VISIT EST Diagnosis: Essential (primary) hypertension[ICD10: I10] Diagnosis: Type 2 diabetes mellitus with hyperglycemia[ICD10: E11.65] Diagnosis: Allergic rhinitis[ICD10: J30.9] María Elena Hicks [facility] CPT-4: 47346 01/13/2020 ([id number]) OFFICE/OUTPATIENT VISIT EST Diagnosis: Type 2 diabetes mellitus with hyperglycemia[ICD10: E11.65] María Elena JUARES [employer] [facility] CPT-4: 88020 11/20/2019 ([id number]) OFFICE/OUTPATIENT VISIT EST Diagnosis: Ingrowing nail[ICD10: L60.0] Diagnosis: Type 2 diabetes mellitus with hyperglycemia[ICD10: E11.65] Kathleen Nadiamike Hicks [email or web address] CPT-4: 40197 10/07/2019 ([id number]) OFFICE/OUTPATIENT VISIT EST Diagnosis: DM w/o complication type II, uncontrolled[ICD10: E11.65] Diagnosis: Hypertriglyceridemia[ICD10: E78.1] Diagnosis: Essential hypertension[ICD10: I10] María Elena JEAN [employer] [facility] CPT-4: 87333 09/30/2019 ([id number]) NURSE/OUTPATIENT VISIT EST Diagnosis: Essential (primary) hypertension[ICD10: I10] Diagnosis: Cervicalgia[ICD10: M54.2] Diagnosis: Hyperglycemia, 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: R73.9] Diagnosis: Mixed hyperlipidemia[ICD10: E78.2] María Elena APPIAH DO [facility] CPT-4: 55558 09/29/2019 ([id number]) OFFICE/OUTPATIENT VISIT EST Diagnosis: Essential (primary) hypertension[ICD10: I10] Diagnosis: Fall from bed, sequela[ICD10: W06.XXXS] María Elena APPIAH DO [facility] CPT-4: 71043 05/28/2019 ([id number]) NURSE/OUTPATIENT VISIT EST Diagnosis: Essential (primary) hypertension[ICD10: I10] María Elena APPIAH DO [facility] CPT-4: 25489 05/19/2019 ([id number]) OFFICE/OUTPATIENT VISIT EST Diagnosis: Essential (primary) hypertension[ICD10: I10] Diagnosis: Type 2 diabetes mellitus with hyperglycemia[ICD10: E11.65] Diagnosis: Intervertebral disc disorders with radiculopathy, 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] Diagnosis: Hormone replacement therapy[ICD10: Z79.890] María Elena APPIAH [employer] [facility] CPT-4: 09463 01/22/2019 ([id number]) OFFICE/OUTPATIENT VISIT EST Diagnosis: Essential (primary) hypertension[ICD10: I10] Diagnosis: Type 2 diabetes mellitus with hyperglycemia[ICD10: E11.65] María Elena APPIAH DO [facility] CPT-4: 94751 09/30/2018 ([id number]) OFFICE/OUTPATIENT VISIT EST Diagnosis: Pain in left elbow[ICD10: M25.522] Diagnosis: Acute stress reaction[ICD10: F43.0] Diagnosis: Primary insomnia[ICD10: F51.01] Diagnosis: Abnormal weight gain[ICD10: R63.5] María Elena APPIAH [employer] [facility] CPT-4: 32174 08/27/2018 ([id number]) OFFICE/OUTPATIENT VISIT EST Diagnosis: Acute recurrent sinusitis, 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: J01.91] Diagnosis: Follicular disorder, 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: L73.9] Diagnosis: Tinea corporis[ICD10: B35.4] María Elena APPIAH DO [facility] CPT-4: 62238 08/09/2018 ([id number]) OFFICE/OUTPATIENT VISIT EST Diagnosis: Tinea corporis[ICD10: B35.4] Diagnosis: Anxiety disorder, 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: F41.9] Diagnosis: Menopausal and female climacteric states[ICD10: N95.1] María Elena APPIAH DO [facility] CPT-4: 29203 07/22/2018 ([id number]) NURSE/OUTPATIENT VISIT EST Diagnosis: Cellulitis of right toe[ICD10: L03.031] María Elena APPIAH DO [facility] CPT-4: 05184 06/19/2018 ([id number]) OFFICE/OUTPATIENT VISIT EST Diagnosis: Cellulitis of right toe[ICD10: L03.031] Kathleen APPIAH DO [facility] CPT-4: 54973 06/17/2018 ([id number]) OFFICE/OUTPATIENT VISIT EST Diagnosis: Migraine without aura, intractable, without status migrainosus[ICD10: G43.019] Diagnosis: Zoster without complications[ICD10: B02.9] Kathleen APPIAH DO [facility] CPT-4: 65066 05/16/2018 ([id number]) OFFICE/OUTPATIENT VISIT EST Diagnosis: Cellulitis of right lower limb[ICD10: L03.115] Kathleen APPIAH DO [facility] CPT-4: 10306 03/20/2018 ([id number]) OFFICE/OUTPATIENT VISIT EST Diagnosis: Cellulitis of right lower limb[ICD10: L03.115] Kathleen APPIAH DO [facility] CPT-4: 02593 03/18/2018 ([id number]) OFFICE/OUTPATIENT VISIT EST Diagnosis: Cellulitis of right lower limb[ICD10: L03.115] Kathleen APPIAH DO [facility] CPT-4: 86637 03/15/2018 ([id number]) OFFICE/OUTPATIENT VISIT EST Diagnosis: Acute sinusitis, 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: J01.90] Kathleen APPIAH DO [facility] CPT-4: 64775 02/11/2018 ([id number]) NURSE/OUTPATIENT VISIT EST Diagnosis: Otitis media, unspecified, right ear[ICD10: H66.91] María Elena APPIAH [employer] CPT-4: 92295 02/01/2018 ([id number]) OFFICE/OUTPATIENT VISIT EST Diagnosis: Acute suppurative otitis media without spontaneous rupture of ear drum, left ear[ICD10: H66.002] Diagnosis: Abnormal weight gain[ICD10: R63.5] Diagnosis: Intervertebral disc disorders with radiculopathy, 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] Kathleen APPIAH [employer] CPT-4: 99 214 01/30/2018 ([id number]) PREV VISIT EST AGE 40-64 Diagnosis: Encounter for general adult medical examination without abnormal findings[ICD10: Z00.00] Diagnosis: Essential (primary) hypertension[ICD10: I10] Diagnosis: Mixed hyperlipidemia[ICD10: E78.2] Diagnosis: Type 2 diabetes mellitus with hyperglycemia[ICD10: E11.65] Diagnosis: 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] María Elena APPIAH [employer] CPT-4: 31846 12/18/2017 ([id number]) OFFICE/OUTPATIENT VISIT EST Diagnosis: Cellulitis of right toe[ICD10: L03.031] Diagnosis: Mixed hyperlipidemia[ICD10: E78.2] Diagnosis: Essential (primary) hypertension[ICD10: I10] Diagnosis: Hyperglycemia, 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: R73.9] Diagnosis: Nontoxic goiter, 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] María Elena APPIAH [employer] CPT-4: 85728 12/10/2017 ([id number]) OFFICE/OUTPATIENT VISIT EST Diagnosis: Cellulitis of right toe[ICD10: L03.031] Diagnosis: Acute sinusitis, 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: J01.90] Kathleen APPIAH [employer] CPT-4: 53083 12/07/2017 OFFICE/OUTPATIENT VISIT EST Diagnosis: Acute maxillary sinusitis, 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: J01.00] Kathleen ORTAER DO [facility] CPT-4: 48047 10/08/2017 ([id number]) OFFICE/OUTPATIENT VISIT EST Diagnosis: Cellulitis of left toe[ICD10: L03.032] María Elena APPIAH DO [facility] CPT-4: 28933 09/21/2017 ([id number]) OFFICE/OUTPATIENT VISIT EST Diagnosis: Insomnia, 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: G47.00] Diagnosis: Major depressive disorder, single episode, 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: F32.9] Diagnosis: Anxiety disorder, 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: F41.9] Diagnosis: Cellulitis of left toe[ICD10: L03.032] Diagnosis: Snoring[ICD10: R06.83] Kathleen APPIAH DO [facility] CPT-4: 01840 09/20/2017 ([id number]) OFFICE/OUTPATIENT VISIT EST Diagnosis: Cellulitis of left toe[ICD10: L03.032] María Elena APPIAH [facility] CPT-4: 58310 07/19/2017 OFFICE/OUTPATIENT VISIT EST Diagnosis: Chronic sinusitis, 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: J32.9] Diagnosis: Generalized hyperhidrosis[ICD10: R61] Kathleen APPIAH [facility] CPT-4: 00160 06/27/2017 ([id number]) OFFICE/OUTPATIENT VISIT EST Diagnosis: Intervertebral disc disorders with radiculopathy, 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] Diagnosis: Primary insomnia[ICD10: F51.01] Diagnosis: Other fatigue[ICD10: R53.83] María Elena APPIAH DO [facility] CPT-4: 90276 04/10/2017 ([id number]) OFFICE/OUTPATIENT VISIT EST Diagnosis: Primary insomnia[ICD10: F51.01] Diagnosis: Localized edema[ICD10: R60.0] Diagnosis: 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] María Elena APPIAH DO [facility] CPT-4: 12802 12/13/2016 ([id number]) OFFICE/OUTPATIENT VISIT EST Diagnosis: Primary insomnia[ICD10: F51.01] Diagnosis: Cyanosis[ICD10: R23.0] María Elena Bazzi [employer] CPT-4: 13396 11/01/2016 ([id number]) PREV VISIT EST AGE 40-64 Diagnosis: Encounter for gynecological examination (general) (routine) without abnormal findings[ICD10: Z01.419] Diagnosis: Encounter for routine child health examination without abnormal findings[ICD10: Z00.129] María Elena APPIAH DO [facility] CPT-4: 96787 10/17/2016 ([id number]) OFFICE/OUTPATIENT VISIT EST Diagnosis: Other seasonal allergic rhinitis[ICD10: J30.2] María Elena APPIAH DO [facility] CPT-4: 22496 10/10/2016 ([id number]) OFFICE/OUTPATIENT VISIT EST Diagnosis: Pain in left arm[ICD10: M79.602] Diagnosis: Contact with and (suspected) exposure to potentially hazardous body fluids[ICD10: Z77.21] Diagnosis: 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, 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] Diagnosis: Unspecified open wound, right foot, sequela[ICD10: S91.301S] María Elena APPIAH [employer] CPT-4: 79892 09/19/2016 ([id number]) OFFICE/OUTPATIENT VISIT EST Diagnosis: Chronic sinusitis, 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: J32.9] Diagnosis: Allergic rhinitis due to pollen[ICD10: J30.1] María Elena APPIAH [facility] CPT-4: 50088 08/24/2016 ([id number]) OFFICE/OUTPATIENT VISIT EST Diagnosis: Acute bronchitis, 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: J20.9] María Elena APPIAH DO [facility] CPT-4: 57441 08/16/2016 ([id number]) OFFICE/OUTPATIENT VISIT EST Diagnosis: Otitis media, unspecified, right ear[ICD10: H66.91] Diagnosis: Acute bronchitis, 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: J20.9] María Elena APPIAH [employer] CPT-4: 57093 08/10/2016 ([id number]) OFFICE/OUTPATIENT VISIT EST Diagnosis: Acute recurrent sinusitis, 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: J01.91] Diagnosis: Allergic rhinitis due to pollen[ICD10: J30.1] María Elena APPIAH DO [facility] CPT-4: 78584 08/02/2016 ([id number]) OFFICE/OUTPATIENT VISIT EST Diagnosis: Pain in unspecified joint[ICD10: M25.50] María Elena APPIAH DO [facility] CPT-4: 22941 07/27/2016 OFFICE/OUTPATIENT VISIT EST Diagnosis: 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] Diagnosis: Acute recurrent sinusitis, 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: J01.91] Diagnosis: Other fatigue[ICD10: R53.83] Diagnosis: Primary insomnia[ICD10: F51.01] Diagnosis: Pain in unspecified joint[ICD10: M25.50] María Elena APPIAH [employer] [facility] CPT-4: 16815 07/20/2016 ([id number]) OFFICE/OUTPATIENT VISIT EST Diagnosis: Blister (nonthermal), left great toe, initial encounter[ICD10: S90.422A] Loan APPIAH DO [facility] CPT-4: 55184 ([id number]) OFFICE/OUTPATIENT VISIT EST Diagnosis: Acute recurrent sinusitis, 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: J01.91] María Elena APPIAH DO [facility] CPT-4: 79937 05/25/2016 ([id number]) OFFICE/OUTPATIENT VISIT EST Diagnosis: Acute sinusitis, 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: J01.90] María Elena APPIAH DO [facility] CPT-4: 37731 04/26/2016 ([id number]) OFFICE/OUTPATIENT VISIT EST Diagnosis: Flushing[ICD10: R23.2] Diagnosis: Primary insomnia[ICD10: F51.01] María Elena APPIAH DO [facility] CPT-4: 88546 03/02/2016 ([id number]) OFFICE/OUTPATIENT VISIT EST Diagnosis: Other seasonal allergic rhinitis[ICD10: J30.2] Loan APPIAH [facility] CPT-4: 28139 02/09/2016 ([id number]) OFFICE/OUTPATIENT VISIT EST Diagnosis: Primary insomnia[ICD10: F51.01] Diagnosis: Urinary tract infection, site not specified[ICD10: N39.0] María Elena APPIAH [facility] CPT-4: 40490 01/24/2016 ([id number]) OFFICE/OUTPATIENT VISIT EST Diagnosis: Other specified disorders of Eustachian tube, bilateral[ICD10: H69.83] Diagnosis: Allergic rhinitis, 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: J30.9] Loan APPIAH [facility] CPT-4: 00524 12/23/2015 ([id number]) OFFICE/OUTPATIENT VISIT EST Diagnosis: Acute recurrent sinusitis, 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: J01.91] Diagnosis: 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] Diagnosis: Allergic rhinitis, 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: J30.9] María Elena APPIAH [facility] CPT-4: 50933 12/08/2015 ([id number]) OFFICE/OUTPATIENT VISIT EST Diagnosis: Allergic rhinitis, 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: J30.9] Diagnosis: Pain in unspecified joint[ICD10: M25.50] María Elena APPIAH [facility] CPT-4: 70300 10/07/2015 ([id number]) OFFICE/OUTPATIENT VISIT EST Diagnosis: Essential (primary) hypertension[ICD10: I10] María Elena APPIAH [employer] [facility] CPT-4: 37026 10/06/2015 OFFICE/OUTPATIENT VISIT EST Diagnosis: Localized enlarged lymph nodes[ICD10: R59.0] Diagnosis: Local infection of the skin and subcutaneous tissue, 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: L08.9] June Flores MARÍA ELENA APPIAH [employer] [facility] CPT- 4: 72565 09/14/2015 ([id number]) OFFICE/OUTPATIENT VISIT EST Diagnosis: Essential (primary) hypertension[ICD10: I10] Diagnosis: Actinic keratosis[ICD10: L57.0] María Elena APPIAH DO [facility] CPT-4: 08549 09/07/2015 ([id number]) OFFICE/OUTPATIENT VISIT EST Diagnosis: Essential (primary) hypertension[ICD10: I10] Diagnosis: Acute stress reaction[ICD10: F43.0] María Elena APPIAH DO [facility] CPT-4: 83851 08/18/2015 ([id number]) OFFICE/OUTPATIENT VISIT EST Diagnosis: Essential (primary) hypertension[ICD10: I10] María Elena APPIAH DO [facility] CPT-4: 70434 07/07/2015 ([id number]) OFFICE/OUTPATIENT VISIT EST Diagnosis: Essential (primary) hypertension[ICD10: I10] María Elena APPIAH DO [facility] CPT-4: 91204 06/24/2015 ([id number]) OFFICE/OUTPATIENT VISIT EST Diagnosis: Essential (primary) hypertension[ICD10: I10] María Elena APPIAH DO [facility] CPT-4: 37905 06/21/2015 ([id number]) OFFICE/OUTPATIENT VISIT EST Diagnosis: Essential (primary) hypertension[ICD10: I10] Diagnosis: Mixed hyperlipidemia[ICD10: E78.2] Diagnosis: Acute stress reaction[ICD10: F43.0] Diagnosis: Primary insomnia[ICD10: F51.01] María Elena APPIAH DO [facility] CPT-4: 03576 06/16/2015 ([id number]) OFFICE/OUTPATIENT VISIT EST Diagnosis: INSOMNIA NOS[ICD9: 780.52] Diagnosis: HYPERTENSION[ICD9: 401.9] Diagnosis: Stress reaction[ICD9: 308.9] María Elena APPIAH DO [facility] CPT-4: 81300 06/02/2015 ([id number]) OFFICE/OUTPATIENT VISIT EST Diagnosis: HYPERTENSION[ICD9: 401.9] Diagnosis: Stress reaction[ICD9: 308.9] María Elena APPIAH DO [facility] CPT-4: 27969 05/20/2015 ([id number]) OFFICE/OUTPATIENT VISIT EST Diagnosis: Skin lesion[ICD9: 709.9] 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] María Elena APPIAH [facility] CPT-4: 45848 05/10/2015 ([id number]) OFFICE/OUTPATIENT VISIT EST Diagnosis: SINUSITIS, ACUTE[ICD9: 461.9] Diagnosis: ALLERGIC RHINITIS[ICD9: 477.9] Diagnosis: DERMATITIS NOS[ICD9: 692.9] María Elena REHMAN [facility] CPT-4: 30824 03/16/2015 OFFICE/OUTPATIENT VISIT EST Diagnosis: Otitis media[ICD9: 382.9] Diagnosis: SINUSITIS, ACUTE[ICD9: 461.9] June APPIAH [facility] CPT-4: 85214 09/11/2014 ([id number]) OFFICE/OUTPATIENT VISIT EST Diagnosis: HYPERLIPIDEMIA NEC/NOS[ICD9: 272.4] María Elena APPIAH [facility] CPT-4: 06346 08/31/2014 ([id number]) OFFICE/OUTPATIENT VISIT EST Diagnosis: - I - HYPERTENSION[ICD9: 401.9] Diagnosis: HYPERLIPIDEMIA NEC/NOS[ICD9: 272.4] María Elena APPIAH [facility] CPT-4: 94846 08/27/2014 ([id number]) OFFICE/OUTPATIENT VISIT EST Diagnosis: ABDOMINAL PAIN[ICD9: 789.00] Diagnosis: DYSPEPSIA[ICD9: 536.8] Diagnosis: Thoracic back pain[ICD9: 724.1] María Elena APPIAH [facility] CPT-4: 84018 07/21/2014 ([id number]) OFFICE/OUTPATIENT VISIT EST Diagnosis: ALLERGIC RHINITIS[ICD9: 477.9] María Elena APPIAH [facility] CPT-4: 80833 07/15/2014 ([id number]) OFFICE/OUTPATIENT VISIT EST Diagnosis: EDEMA[ICD9: 782.3] Diagnosis: Chronic insomnia[ICD9: 780.52] María Elena APPIAH [facility] CPT-4: 01855 05/18/2014 ([id number]) OFFICE/OUTPATIENT VISIT EST Diagnosis: Thyromegaly[ICD9: 240.9] Diagnosis: - I - HYPERTENSION[ICD9: 401.9] Diagnosis: ROUTINE MEDICAL EXAM[ICD9: V70.0] Diagnosis: EDEMA[ICD9: 782.3] María Elena APPIAH [facility] CPT-4: 02100 05/14/2014 OFFICE/OUTPATIENT VISIT EST Diagnosis: BRONCHITIS, ACUTE[ICD9: 466.0] Diagnosis: SINUSITIS, ACUTE[ICD9: 461.9] María Elena APPIAH [facility] CPT-4: 84617 04/21/2014 OFFICE/OUTPATIENT VISIT EST Diagnosis: SINUSITIS, ACUTE[ICD9: 461.9] June VelozAlbertadaniella [facility] CPT-[facility]: 84975 03/04/2014 ([id number]) OFFICE/OUTPATIENT VISIT EST Diagnosis: VACCINE FOR TDAP[ICD10: Z23] María Elena [facility] CPT-[facility]: 86135 02/27/2014 ([id number]) OFFICE/OUTPATIENT VISIT EST Diagnosis: Seborrheic keratoses, inflamed[ICD9: 702.11] Diagnosis: ACTINIC KERATOSIS[ICD9: 702.0] Diagnosis: INSOMNIA NOS[ICD9: 780.52] María Elena [facility] CPT-[facility]: 02814 01/13/2014 OFFICE/OUTPATIENT VISIT EST 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] Diagnosis: ALLERGIC RHINITIS[ICD9: 477.9] Diagnosis: Serous otitis media[ICD9: 381.4] María Elena APPIAH [facility] CPT-4: 46794 12/24/2013 ([id number]) OFFICE/OUTPATIENT VISIT EST Diagnosis: SINUSITIS, ACUTE[ICD9: 461.9] Diagnosis: ALLERGIC RHINITIS[ICD9: 477.9] 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] María Elena [facility] CPT-[facility]: 21828 11/12/2013 ([id number]) OFFICE/OUTPATIENT VISIT EST Diagnosis: ALLERGIC RHINITIS[ICD9: 477.9] Diagnosis: SINUSITIS, ACUTE[ICD9: 461.9] María Elena APPIAH DO [facility] CPT-4: 04217 10/21/2013 ([id number]) OFFICE/OUTPATIENT VISIT EST Diagnosis: ASYMPTOMATIC VARICOSE VEINS[ICD9: 454.9] Diagnosis: INSOMNIA NOS[ICD9: 780.52] María Elena PANDYA [facility] CPT-4: 62776 09/22/2013 OFFICE/OUTPATIENT VISIT EST Diagnosis: SINUSITIS, ACUTE[ICD9: 461.9] June APPIAH DO [facility] CPT-4: 46012 08/27/2013 ([id number]) OFFICE/OUTPATIENT VISIT EST Diagnosis: CEPHALGIA[ICD9: 784.0] Diagnosis: CEPHALGIA, TENSION[ICD9: 307.81] 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] María Elena APPIAH [facility] CPT-4: 86425 08/04/2013 ([id number]) OFFICE/OUTPATIENT VISIT EST Diagnosis: Cervicalgia[ICD9: 723.1] Diagnosis: SPASM OF MUSCLE[ICD9: 728.85] Diagnosis: CEPHALGIA, TENSION[ICD9: 307.81] María Elena APPIAH [facility] CPT-4: 70458 07/23/2013 ([id number]) OFFICE/OUTPATIENT VISIT EST 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] Diagnosis: ALLERGIC RHINITIS[ICD9: 477.9] María Elena APPIAH DO [facility] CPT-4: 31704 06/23/2013 ([id number]) OFFICE/OUTPATIENT VISIT EST Diagnosis: ALLERGIC RHINITIS[ICD9: 477.9] Diagnosis: ACUTE SEROUS OTITIS MEDIA[ICD9: 381.01] 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] María Elena APPIAH DO [facility] CPT-4: 40654 05/26/2013 ([id number]) OFFICE/OUTPATIENT VISIT EST Diagnosis: HYPERTENSION[ICD9: 401.9] Diagnosis: EDEMA[ICD9: 782.3] Diagnosis: Serous otitis media[ICD9: 381.4] María Elena JUARES AlanJj [facility] CPT-[facility]: 42695 04/16/2013 ([id number]) OFFICE/OUTPATIENT VISIT EST Diagnosis: SINUSITIS, ACUTE[ICD9: 461.9] Diagnosis: ALLERGIC RHINITIS[ICD9: 477.9] Diagnosis: EDEMA[ICD9: 782.3] Diagnosis: Thyromegaly[ICD9: 240.9] Diagnosis: MALAISE AND FATIGUE[ICD9: 780.79] María Elena Lopez AlanJj [facility] CPT-4: 00281 03/05/2013 ([id number]) OFFICE/OUTPATIENT VISIT EST Diagnosis: PAIN, LOWER BACK[ICD9: 724.2] Diagnosis: SPASM OF MUSCLE[ICD9: 728.85] María Elena [facility] C[facility]: 61410 12/23/2012 OFFICE/OUTPATIENT VISIT EST Diagnosis: Low back pain[ICD9: 724.2] Lashawn Hicks [facility] CPT-4: 57352 12/16/2012 ([id number]) OFFICE/OUTPATIENT VISIT EST Diagnosis: PAIN, LOWER BACK[ICD9: 724.2] Diagnosis: SCIATICA[ICD9: 724.3] Diagnosis: Lumbar herniated disc[ICD9: 722.10] María Elena COLON AlanJj [facility] CPT-[facility]: 27653 12/09/2012 ([id number]) OFFICE/OUTPATIENT VISIT EST Diagnosis: PAIN, LOWER BACK[ICD9: 724.2] Diagnosis: SCIATICA[ICD9: 724.3] Diagnosis: LUMBAR DISC DISPLACEMENT[ICD9: 722.10] María Elena MARIN AlanJj [facility] CPT-4: 81618 12/04/2012 OFFICE/OUTPATIENT VISIT EST Diagnosis: Pneumonia[ICD9: 486] Mary Hicks [facility] [employer] [facility] CPT-4: 21784 11/22/2012 ([id number]) OFFICE/OUTPATIENT VISIT EST Diagnosis: PNEUMONIA, ORGANISM[ICD9: 486] Diagnosis: Exacerbation of RAD (reactive airway disease)[ICD9: 493.92] María Elena Waltabbey MARÍA ELENA AlanJj IGNACIO GARIBAY [facility] CPT-4: 02411 11/21/2012 OFFICE/OUTPATIENT VISIT EST Diagnosis: HYPERTENSION[ICD9: 401.9] Diagnosis: Cephalgia[ICD9: 784.0] Lashawn Babar MARÍA ELENA AlanJj IGNACIO GARIBAY [facility] CPT-4: 43513 10/29/2012 ([id number]) OFFICE/OUTPATIENT VISIT EST Diagnosis: MALAISE AND FATIGUE[ICD9: 780.79] Diagnosis: ARTHRALGIA-MULTIPLE SITES[ICD9: 719.49] María Elenamarcella MONTERO APARNAALCIDES AlanJj [facility]NAC[facility] CPT-4: 00427 10/14/2012 ([id number]) OFFICE/OUTPATIENT VISIT EST Diagnosis: URINARY FREQUENCY[ICD9: 788.41] María Elena Waltabbey MARÍA ELENA AlanJj IGNACIO GARIBAY [facility] CPT-4: 06637 09/27/2012 ([id number]) OFFICE/OUTPATIENT VISIT EST Diagnosis: MALAISE AND FATIGUE[ICD9: 780.79] Diagnosis: ARTHRALGIA-MULTIPLE SITES[ICD9: 719.49] María Elenaalcides Appiah KYLAH BRAUNALCIDES AlanJj IGNACIO GARIB[facility] CPT-4: 02871 09/25/2012 ([id number]) OFFICE/OUTPATIENT VISIT EST Diagnosis: SINUSITIS, ACUTE[ICD9: 461.9] 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] María Elenamarcella MONTEROQUELINE AlanJj IGNACIO GARIB[facility] CPT-4: 63103 08/29/2012 OFFICE/OUTPATIENT VISIT EST Diagnosis: ACTINIC KERATOSIS[ICD9: 702.0] Diagnosis: Inflamed seborrheic keratosis[ICD9: 702.11] Diagnosis: Skin cancer of face[ICD9: 173.31] Diagnosis: HYPERTENSION[ICD9: 401.9] María Elena JUARES AlanJj WALT [facility] CPT-4: 13557 08/12/2012 ([id number]) OFFICE/OUTPATIENT VISIT EST Diagnosis: ARTHRALGIA-MULTIPLE SITES[ICD9: 719.49] Diagnosis: GOUT[ICD9: 274.9] Diagnosis: HYPERTENSION[ICD9: 401.9] Diagnosis: Tachycardia[ICD9: 785.0] María Elena MONTEROQUELINE AlanJj FRITZ BRADFORD [facility] CPT-4: 95304 05/06/2012 ([id number]) OFFICE/OUTPATIENT VISIT EST Diagnosis: INSOMNIA NOS[ICD9: 780.52] María Elena Wayyesivictorino MARÍA ELENA AlanJj KRISTYN PANDYA [facility] CPT-4: 04010 04/03/2012 ([id number]) OFFICE/OUTPATIENT VISIT EST Diagnosis: INSOMNIA NOS[ICD9: 780.52] Diagnosis: HYPERTENSION[ICD9: 401.9] Diagnosis: MIGRAINE NOS/NOT INTRCBL[ICD9: 346.90] María Elena Waltyesivictorino MARLIN MARIN AlanJj WALTNDVICTORINO [facility] CPT-4: 56827 03/19/2012 ([id number]) OFFICE/OUTPATIENT VISIT EST Diagnosis: CELLULITIS[ICD9: 682.9] Diagnosis: Ankle pain[ICD9: 719.47] Diagnosis: HYPERTENSION[ICD9: 401.9] María Elena Wayabbey JUARES AlanJj WALT NDERose Mary [facility] CPT-4: 47780 02/20/2012 ([id number]) OFFICE/OUTPATIENT VISIT EST Diagnosis: MIGRAINE NOS/NOT INTRCBL[ICD9: 346.90] Diagnosis: Vomiting[ICD9: 787.03] María Elena Waltabbey JUARES AlanJj WALTYESIJohn R [facility] CPT-4: 41298 01/30/2012 ([id number]) OFFICE/OUTPATIENT VISIT EST Diagnosis: EDEMA[ICD9: 782.3] Diagnosis: HYPERTENSION[ICD9: 401.9] Diagnosis: ALLERGIC RHINITIS[ICD9: 477.9] Diagnosis: ARTHRALGIA-MULTIPLE SITES[ICD9: 719.49] María Elena Waltabbey MONTERO APARNAALCIDES AlanJj IGNACIO [facility] CPT-4: 78159 01/24/2012 ([id number]) OFFICE/OUTPATIENT VISIT EST Diagnosis: SPASM OF MUSCLE[ICD9: 728.85] Diagnosis: Thoracic back pain[ICD9: 724.1] Diagnosis: Cervical pain[ICD9: 723.1] María Elena Waltabbey JUARES AlanJj KRISTYN PANDYA [facility] CPT-4: 87669 01/10/2012 OFFICE/OUTPATIENT VISIT EST Diagnosis: PAIN, LOWER BACK[ICD9: 724.2] Diagnosis: LUMBAR DISC DISPLACEMENT[ICD9: 722.10] María Elena APPIAH [facility] CPT-4: 13803 12/11/2011 OFFICE/OUTPATIENT VISIT EST Diagnosis: MIGRAINE NOS/NOT INTRCBL[ICD9: 346.90] Diagnosis: SINUSITIS, ACUTE[ICD9: 461.9] María Elena APPIAH [facility] CPT-4: 84146 11/09/2011 OFFICE/OUTPATIENT VISIT EST Diagnosis: MIGRAINE NOS/NOT INTRCBL[ICD9: 346.90] Diagnosis: LYMPHADENOPATHY[ICD9: 785.6] María Elena APPIAH [facility] CPT-4: 76555 09/13/2011 OFFICE/OUTPATIENT VISIT EST Diagnosis: MALAISE AND FATIGUE[ICD9: 780.79] Diagnosis: ARTHRALGIA-MULTIPLE SITES[ICD9: 719.49] María Elena APPIAH [facility] CPT-4: 62803 08/31/2011 OFFICE/OUTPATIENT VISIT EST Diagnosis: SINUSITIS, ACUTE[ICD9: 461.9] María Elena APPIAH [facility] CPT-4: 78253 07/20/2011 OFFICE/OUTPATIENT VISIT EST Diagnosis: HYPERTENSION[ICD9: 401.9] Diagnosis: PAIN, LOWER BACK[ICD9: 724.2] Diagnosis: SPASM OF MUSCLE[ICD9: 728.85] María Elena APPIAH [facility] CPT-4: 21954 07/06/2011 OFFICE/OUTPATIENT VISIT EST Diagnosis: MIGRAINE NOS/NOT INTRCBL[ICD9: 346.90] Diagnosis: HYPERTENSION[ICD9: 401.9] María Elena SEYMOUR [facility] CPT-4: 34921 05/22/2011 OFFICE/OUTPATIENT VISIT EST Diagnosis: SINUSITIS, ACUTE[ICD9: 461.9] Diagnosis: MIGRAINE NOS/NOT INTRCBL[ICD9: 346.90] Diagnosis: Dehydration[ICD9: 276.51] Diagnosis: Vomiting[ICD9: 787.03] María Elena Bazzi [facility] CPT-4: 83483 05/09/2011 ([id number]) OFFICE/OUTPATIENT VISIT EST María Elena Waltnder [facility] CPT-4: 54925 02/14/2011 ([id number]) OFFICE/OUTPATIENT VISIT EST María Elena Waltnder [facility] CPT-4: 88538 02/03/2011 ([id number]) OFFICE/OUTPATIENT VISIT EST María Elenamarcella Waynder [facility] CPT-4: 54212 01/31/2011 ([id number]) OFFICE/OUTPATIENT VISIT EST María Elena Waltnder [facility] CPT-4: 78969 01/25/2011 ([id number]) OFFICE/OUTPATIENT VISIT EST María Elena Waltnder [facility] CPT-4: 37745 01/18/2011 ([id number]) OFFICE/OUTPATIENT VISIT EST María Elenamarcella Ortaer [facility] CPT-4: 71373 11/29/2010 ([id number]) OFFICE/OUTPATIENT VISIT, EST María Elenamarcella Waynder [facility] CPT-4: 07728 10/10/2010 ([id number]) OFFICE/OUTPATIENT VISIT, EST María Elenamarcella Waynder [facility] CPT-4: 09326 06/07/2010 ([id number]) OFFICE/OUTPATIENT VISIT, EST María Elena Waltnder [facility] CPT-4: 99955 04/27/2010 ([id number]) OFFICE/OUTPATIENT VISIT, EST María Elena Waltnder [facility] CPT-4: 36021 04/05/2010 ([id number]) OFFICE/OUTPATIENT VISIT, EST María Elena Waltnder [facility] CPT-4: 72100 03/09/2010 ([id number]) OFFICE/OUTPATIENT VISIT, EST María Elena Waltnder [facility] CPT-4: 46387 03/03/2010 ([id number]) OFFICE/OUTPATIENT VISIT, EST Maíra Elenamarcella APPIAH DO [facility] CPT-4: 01298 01/17/2010 ([id number]) PREV VISIT, EST, AGE 40-64 María Elena MONTEROMICHAEL ValdesJj APPIAH DO [facility] CPT-4: 15339 12/27/2009 Plan of Care Planned Activity Notes [...] ICD-10 : S90.821A 02/12/2020 Appointment: Kathleen Zuniga [address] [place] [address] ACUTE ILLNESS 02/12/2020 Visit Diagnosis Plan: Essential [...] 01/13/2020 Appointment: María Elena Appiah WPtel: [phone] [facility] FOLLOW UP 01/13/2020 Patient Education: lisinopril- [employer] [id number] Completed 01/13/2020 Patient Education: glimepiride- [employer] [id number] Completed 01/13/2020 Appointment: RichardvictorinoMaría Elena [facility]el[facility] [phone] [facility] [facility] CANCELED 11/26/2019 Visit Diagnosis Plan: Type 2 diabetes mellitus with hy perglycemia Discussion: Januvia 100mg daily Glimepride 2mg po BID Accuchecks BID Call in 2 weeks with BS readings Get formulary book ICD-9 : 250.02 ICD-10 : E11.65 11/20/2019 Appointment: RichardvictorinoMaría Elena WPtel[facility] [phone] [facility] FO[facility] 11/20/2019 Patient Education: glimepiride- [employer] [id number] Completed 11/20/2019 Patient Education: Januvia- [employer] [id number] Completed 11/20/2019 Visit Diagnosis Plan: Ingrowing nail [...] elevated blood sugars. sample of increased dose /5 was given to patient for her to take daily. will have her call in one week with blood sugar readings. ICD-9 : 250.02 ICD-10 : E11.65 10/07/2019 Appointment: Kathleen Zuniga [address] [place], [place] [id number] 10/07/2019 Visit Diagnosis Plan: Hypertriglyceridemia [...] E11.65 09/30/2019 Appointment: María Elena Appiah WPtel: [address] [place], [place] [phone] [place] CHECK UP 09/30/2019 Patient Education: Premarin- [employer]on [id number] [email or web address]/[email or web address] Completed 09/30/2019 Appointment: María Elena Appiah WPtel: [address] [place], [place] [phone] [place] LAB 09/29/2019 Appointment: María Elena Appiah WPtel: [address] [place], [place] [phone] [place] Won't have the new insurance till [...] W06.XXXS 05/28/2019 Appointment: María Elena Appiah WPtel: [address] [place] [address] [place] FOLLOW UP 05/28/2019 Appointment: María Elena Appiah WPtel: [address] [place] [address] [place] BP CHECK 05/19/2019 Visit Diagnosis Plan: [...] Z79.890 01/22/2019 Appointment: María Elena Appiah WPtel: [address] [place] [address] [place] FOLLOW UP 01/22/2019 Patient Education: estradiol- [employer] C[employer]on [id number] [email or web address]/resources/[email or web address] Completed 01/22/2019 Appointment: María Elena Appiah WPtel: [address] [place] [address] [place] CANCELED 01/20/2019 Appointment: María Elena Appiah WPtel: [address] [place] [address] [place] LM NO SHOW 01/06/2019 Appointment: María Elena Appiah WPtel: [address] [place] [address] [place] CANCELED 10/17/2018 Appointment: María Elena Appiah WPtel: [address] [place] [address] [place] BP CHECK 10/09/2018 Visit Diagnosis Plan: [...] I10 09/30/2018 Appointment: María Elena Appiah WPtel: [address] [place] [address] [place] FOLLOW UP 09/30/2018 Visit Diagnosis Plan: [...] F51.01 08/27/2018 Appointment: María Elena Appiah WPtel: [address] [place] [address] ACUTE ILLNESS 08/27/2018 Appointment: María Elena Appiah WPtel: [address] [place] [address] [place] Patient stated she went out to [...] Tyle... 08/09/2018 Appointment: María Elena Appiah WPtel: [address] [place] [address] ACUTE ILLNESS 08/09/2018 Appointment: María Elena Appiah WPtel: [address] [place] [address] NO SHOW 08/08/2018 Visit Diagnosis Plan: Anxiety [...] B35.4 07/22/2018 Appointment: María Elena Appiah WPtel: [address] [place], [place] [id number] ACUTE ILLNESS 07/22/2018 Appointment: María Elena Appiah WPtel: [address] [place], [place] [phone] [place] INJECTION 06/19/2018 Patient Education: Patient Medication [...] ICD-10 : L03.031 06/17/2018 Appointment: Kathleen Zuniga [address] [place] [address] ACUTE ILLNESS 06/17/2018 Patient Education: Patient Medication [...] ICD-10 : B02.9 05/16/2018 Appointment: Kathleen Zuniga [address] [place], [place] [address] ACUTE ILLNESS 05/16/2018 Patient Education: Patient Medication [...] ICD-10 : L03.115 03/20/2018 Appointment: Kathleen Zuniga [address] [place], [place] [phone] FOLLOW UP 03/20/2018 Patient Education: Patient Medication [...] ICD-10 : L03.115 03/18/2018 Appointment: Kathleen Zuniga [address] [place], [place] [phone] FOLLOW UP 03/18/2018 Patient Education: Patient Medication [...] ICD-10 : L03.115 03/15/2018 Appointment: Kathleen Zuniga [address] [place], [place] [phone] ACUTE ILLNESS 03/15/2018 Patient Education: Patient Medication [...] ICD-10 : J01.90 02/11/2018 Appointment: Kathleen Zuniga [address] [place], [place] [phone] ACUTE ILLNESS 02/11/2018 Patient Education: Patient Medication Summary Completed 02/11/2018 Appointment: María Elena Appiah WPtel: [phone] [facility] INJECTION 02/01/2018 Patient Education: Patient Medication [...] ICD-10 : M51.16 01/30/2018 Appointment: Kathleen Zuniga [address] [place], [place] [id number] 01/30/2018 Patient Education: Patient Medication Summary Completed 01/30/2018 Patient Education: Lyrica - 18+ - No HI TRAY [place]AN [place] Completed 01/30/2018 Visit Diagnosis Plan: Mixed [...] 12/18/2017 Appointment: María Elena Appiah WPtel: [phone] [facility] Annual Well Visit 12/18/2017 Patient Education: Patient Medication Summary Completed 12/18/2017 Care Plan: Referral Order SNOMED-CT : [id number] Pending 12/18/2017 Appointment: María Elena Appiah WPtel: [phone] [facility] [place] INJECTION 12/10/2017 Patient Education: Patient [...] ICD-10 : L03.031 12/07/2017 Appointment: Kathleen Zuniga [address] [place] [address] ACUTE ILLNESS 12/07/2017 Patient Education: Patient Medication [...] ICD-10 : J01.00 10/08/2017 Appointment: Kathleen Zuniga [address] [place], [place] [phone] ACUTE ILLNESS 10/08/2017 Patient Education: Patient Medication Summary Completed 10/08/2017 Appointment: María Elena Appiah WPtel: [phone] [facility] [place] INJECTION 09/21/2017 Patient Education: Patient [...] depressive disorder, singl e episode, unspecified Discussion: nba cymbalta and start effexor. no need to [...] ICD-10 : R06.83 09/20/2017 Appointment: Kathleen Zuniga [address] [place], [place] [address]a [facility] ACUTE ILLNESS 09/20/2017 Patient Education: Patient Medication [...] ICD-10 : L60.0 08/29/2017 Appointment: Kathleen Zuniga [address] [place], [place] [address] [facility] 08/29/2017 Patient Education: Patient Medication Summary Completed 08/29/2017 Visit Diagnosis Plan: Actinic keratosis Discussion: Cr yotherapy as above ICD-9 : 702.0 ICD-10 : L57.0 08/01/2017 Appointment: María Elena Appiah WPtel: [address] [place], [place] [id number] OFFICE SURGERY 08/01/2017 Patient Education: Patient Medication Summary Completed 08/01/2017 Appointment: María Elena Appiah WPtel: [phone] [facility] PATIENT THOUGHT APPOINTMENT WAS TOMORROW 07/26/17 CALLED 15 MINUTES BEFORE APPT TO SAY SHE DIDN'T HAVE ANYONE TO COVER HER BUSINESS AND WOULD NOT MAKE IT NO SHOW 07/25/2017 Visit Diagnosis Plan: Cellulitis of left toe Discussio n: Clindamycin and notify if worsening or persistis ICD-9 : 681.10 ICD-10 : L03.032 07/19/2017 Appointment: María Elena Appiah WPtel: [address] [place], [place] [phone] MEDICATION REVIEW 07/19/2017 Patient Education: Patient Medication Summary Completed 07/19/2017 Appointment: María Elena Appiah WPtel: [address] [place] [address] CANCELED 07/04/2017 Visit Diagnosis Plan: Generalized hyperhidrosis Discus ian: CBC, CMP, TSH, free T4 ordered to assess. will review labs. ICD-9 : 780.8 ICD-10 : R61 06/27/2017 Visit Diagnosis Plan: Chronic sinusitis, unspecified D iscussion: Referral sent to dr. albarado in [place] per patient request. patient has been treated multiple times for sinus infections with no recovery. patient was seen by dr sanchez in the past with no interventions. patient has deviated septum which may be affecting her sinuses. 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, including hip Discussion: Shave removal of above lesio n--sent to pathology ICD-9 : 216.7 ICD-10 : D23.72 01/24/2017 Appointment: María Elena Appiah WPtel: [address] [place], [place] [phone] 01/23 confirmed ~ OFFICE SURGERY 01/24/2017 Patient Education: Patient Medication Summary Completed 01/24/2017 Appointment: Loan Sácnhez [address] [place], [place] [phone] 01/09 rescheduled~sl RESCHEDULED 01/15/2017 Visit Diagnosis Plan: Localized edema Discussion: Reich fernando metolazone to lasix with potassium prn ICD-9 [...] 12/13/2016 Appointment: María Elena Appiah WPtel: [phone] [facility] [place] 12/12 confirmed ~sl MEDICATION REVIEW 12/13/2016 Patient Education: Patient Medication Summary Completed 12/13/2016 Appointment: María Elena Appiah WPtel: [phone] [facility] [place] rescheduled for 12/13/16 at 11am RESCHEDULED 0 12/06/2016 Appointment: María Elena Appiah WPtel: [phone] [facility] [place] CANCELED 11/23/2016 Patient Education: Patient Medication [...] 11/01/2016 Appointment: María Elena Appiah WPtel: [phone] [facility] [place] 10/31 lm `sl 11/01 lm`sl MEDICATION REVIEW 017 Patient Education: Patient Medication Summary Completed 11/01/2016 Referral: Canelo Overton WPtel: [phone] [id number] [place] Referral Initiated 10/30/2016 Visit Diagnosis Plan: Encounter for [facility] child health examination without abnormal findings Discussion: Lab up to date Referral for colonoscopy Follow Up: 6 months ICD-9 : V20.2 ICD-10 : Z00.129 10/17/2016 Visit Diagnosis Plan: Encounter for gyne cological examination (general) (routine) without abnormal findings Discussion: Speculum and Bimanual exam d one Mammogram ordered ICD-9 : V72.31 ICD-10 : Z01.419 10/17/2016 Appointment: María Elena Appiah WPtel: [address] [place], [place] [phone] 10/16 confirmed ~sl PAP 10/17/2016 Patient Education: Patient Medication Summary Completed 10/17/2016 Care Plan: MAMMOGRAM SCREENING LOINC : 2 6347-5 Pending 10/17/2016 Visit Diagnosis Plan: Other seasonal allergic rhinitis Discussion: Decadron/Garamycin Nasal Center Point Mix Too soon for steroid Retry zyrtec 10mg daily ICD-9 : 477.9 ICD-10 : J30.2 10/10/2016 Appointment: María Elena Appiah WPtel: [address] [place], [place] [address] FOLLOW UP 10/10/2016 Patient Education: Patient Medication Summary Completed 10/10/2016 Appointment: María Elena Appiah WPtel: [address] [place], [place] [phone] 10/02 reschedule `sl RESCHEDULED 10/02/2016 Visit Plan: See surgery for removal of n ew left arm lesion and right foot lesion Lyrica to use next month for left arm paresthesias Continue current meds Discussed sunscreen/sunblock combo 09/19/2016 Appointment: María Elena Appiah WPtel: [address] [place], [place] [phone] 09/18 confirmed ~sl FOLLOW UP 09/19/2016 Patient Education: Patient Medication Summary Completed 09/19/2016 Patient Education: Patient Medication Summary Completed 09/18/2016 Care Plan: MAMMOGRAM BOTH BREASTS LOINC : 69940-5 Pending 09/18/2016 Visit Plan: Discussed that needs [...] drying out sinuses 08/24/2016 Appointment: María Elena Appiahtel: [address] [place] [address] ACUTE ILLNESS 08/24/2016 Patient Education: Patient Medication Summary Completed 08/24/2016 Patient Education: Patient Medication Summary Completed 08/23/2016 Care Plan: MAMMOGRAM SCREENING LOINC : 2 6347-5 Pending 08/23/2016 Visit Plan: Finish doxycycline Add Breo 100/25 1 p BID for 2 weeks If not improving within next 2 days will get CXR 08/16/2016 Appointment: María Elena Appiahtel: [address] [place] [address] ACUTE ILLNESS 08/16/2016 Patient Education: Patient Medication Summary Completed 08/16/2016 Visit Plan: Supportive care. Rest, Fluid s, Tylenol/Motrin prn fever or bodyaches. Notify if worsening symptoms. Doxycyline and Prednisone 08/10/2016 Appointment: María Elena Appiahtel: [address] [place] [address] 08/09 lm`sl....confirmed-sp FOLLOW UP 09/2015 Patient Education: Patient Medication Summary Completed 08/10/2016 Visit Plan: Saline nasal flushes prn. Ty lenol/Motrin prn headache. Notify if persists/symptoms worsening. Dexamethasone 8mg IM today May use coricedan and mucinex 08/02/2016 Appointment: María Elena Appiahtel: [address] [place] [address] ACUTE ILLNESS 08/02/2016 Patient Education: Patient Medication Summary Completed 08/02/2016 Visit Plan: Cryotherapy as above and lef t forearm lesion removal as above with 5-0 punch biopsy and sent to path Return in 10 days for suture removal 08/01/2016 Appointment: María Elena Appiah: [address] [place], [place] [id number] 07/31 confirmed`~sl OFFICE SURGERY 08/01/2016 Patient Education: Patient Medication Summary Completed 08/01/2016 Visit Plan: Stop clindamycin Check CBC, CMP, ESR now/STAT 07/27/2016 Appointment: María Elena Appiah WPtel: [address] [place], [place] [id number] ACUTE ILLNESS 07/27/2016 Patient Education: Patient Medication Summary Completed 07/27/2016 Visit Plan: Update lab and check ABIs to start with Will likely need cardiology evaluation to rule out PVD Clindamycin for 10 days Daily yogurt or probiotic Will return for removal of left arm lesions 07/20/2016 Appointment: María Elena Appiah WPtel: [address] [place], [place] [id number] ACUTE ILLNESS 07/20/2016 Patient Education: Patient Medication Summary Completed 07/20/2016 Patient Education: Patient Medication Summary Completed 07/20/2016 Care Plan: MAMMOGRAM BOTH BREASTS LOINC : 46706-0 Pending 07/20/2016 Care Plan: US EXAM CHEST LOINC : 26233-4 Pending 07/20/2016 Visit Plan: Wound culture collected from left great toe Appearance is somewhat staph like Rx as above Wound cleanser and skin care reviewed May need to add oral antibiotic if sores do not heal or continue to reoccur 07/06/2016 Appointment: Loan Sánchez [address] [place], [place] [id number] ACUTE ILLNESS 07/06/2016 Patient Education: Patient Medication Summary Completed 07/06/2016 Appointment: María Elena Appiah WPtel: [address] [place], [place] [phone] [place] INJECTION 05/25/2016 Patient Education: Patient Medication Summary Completed 05/25/2016 Visit Plan: Saline nasal flushes prn. Ty lenol/Motrin prn headache. Notify if persists/symptoms worsening. Dexamethasone and Rocephin given 04/26/2016 Appointment: María Elena Appiah WPtel: [address] [place] [address] ACUTE ILLNESS 04/26/2016 Patient Education: Patient Medication Summary Completed 04/26/2016 Visit Plan: Check CBC, CMP, TSH, FreeT4, HbA1C, estradiol, lipids in AM 03/02/2016 Appointment: María Elena Appiah WPtel: [address] [place] [address] 03/01 lm~sl ACUTE ILLNESS 03/02/2016 Patient Education: Patient Medication Summary Completed 03/02/2016 Visit Plan: Exam is nearly normal Needs to be taking daily antihistamine Would prefer to use oral steroids instead of shot but patient insist that oral steroids cause horrible headaches for her Will given kenalog IM instead 02/09/2016 Appointment: Loan Sánchez [address] [place] [address] ACUTE ILLNESS 02/09/2016 Patient Education: Patient Medication Summary Completed 02/09/2016 Visit Plan: Culture urine Macrobid DC xa nax Trial of Ativan 1mg q HS 01/24/2016 Appointment: María Elena Appiah WPtel: [address] [place] [address] ACUTE ILLNESS 01/24/2016 Patient Education: Patient Medication Summary Completed 01/24/2016 Visit Plan: No steroid or rocephin injec tion warranted Can have oral prednisone Continue current home regimen Needs to follow up with Dr Sanchez if problems persist 12/23/2015 Appointment: Loan Sánchez [address] [place] [address] ACUTE ILLNESS 12/23/2015 Patient Education: Patient Medication Summary Completed 12/23/2015 Visit Plan: Saline nasal flushes prn. Ty lenol/Motrin prn headache. Notify if persists/symptoms worsening. Kenalog 40mg IM today 12/08/2015 Appointment: María Elena Appiah WPtel: [address] [place] [address] 12/06 confirmed~sl ACUTE ILLNESS 12/08/2015 Patient Education: Patient Medication Summary Completed 12/08/2015 Appointment: María Elena Appiah WPtel: [address] [place] [address] ACUTE ILLNESS 11/18/2015 Patient Education: Patient Medication Summary Completed 10/11/2015 Appointment: María Elena Appiah WPtel: [address] [place], [place] [phone] [place] INJECTION 10/07/2015 Patient Education: Patient Medication Summary Completed 10/07/2015 Visit Plan: Check renal arterial doppler s and ECHO Change amlodopine to lotrel 5/20mg q HS Will need stress test as well Check CMP, uric acid, ESR 10/06/2015 Appointment: María Elena Appiah WPtel: [address] [place] [address] ACUTE ILLNESS 10/06/2015 Patient Education: Patient Medication Summary Completed 10/06/2015 Patient Education: [facility] - Saving [employer] - Amlodipine Besylate - 18-64 - Dynamic Portal ID Completed 10/06/2015 Appointment: María Elena Appiah WPtel: [address] [place] [address] FOLLOW UP 09/22/2015 Visit Plan: Cephalexin 500 mg PO bid Mery ly topical Mupirocin to lesions on left lateral neck and face Follow-up in one week. Sooner if symptoms worsen 09/14/2015 Appointment: June Flores WPtel: [address] [place] [address] ACUTE ILLNESS 09/14/2015 Patient Education: Patient Medication Summary Completed 09/14/2015 Visit Plan: Change bystolic to bedtime d osing and amlodopine to morning dosing Cryotherapy as above to AKs 09/07/2015 Appointment: María Elena Appiah WPtel: [address] [place] [address] 09/06 appointment made and confirmed ~sl FOLLOW UP 09/07/2015 Patient Education: Patient Medication Summary Completed 09/07/2015 Visit Plan: Increase bystolic back to 20 mg daily but will split and take 10mg in AM and 10mg in PM Stress Reducers 08/18/2015 Appointment: María Elena Appiah WPtel: [address] [place], [place] [phone] 08/17/15 appt confirmed cn ACUTE ILLNESS 08/18 Patient Education: Patient Medication Summary Completed 08/18/2015 Appointment: María Elena Appiah WPtel: [address] [place] [address] BP CHECK 07/07/2015 Patient Education: Patient Medication Summary Completed 07/07/2015 Appointment: María Elena Appiah WPtel: [address] [place], [place] [id number] 06/24/2015 Patient Education: Patient Medication Summary Completed 06/24/2015 Appointment: María Elena Appiah WPtel: [address] [place] [address] BP CHECK 06/21/2015 Patient Education: Patient Medication Summary Completed 06/21/2015 Visit Plan: Lab discussed Continue curre nt meds and lifestyle modification Recheck lab in 6mos 06/16/2015 Appointment: María Elena Appiah WPtel: [address] [place] [address] 06/15 confirmed FOLLOW UP 06/16/2015 Patient Education: Patient Medication Summary Completed 06/16/2015 Patient Education: Patient Medication Summary Completed 06/15/2015 Visit Plan: Increase cymbalta to 60mg q HS Keep clonidine at current dose Recheck 2weeks Change xanax to klonopin 06/02/2015 Appointment: María Elena Appiah WPtel: [address] [place], [place] [phone] 06/02 lm FOLLOW UP 06/02/2015 Patient Education: Patient Medication Summary Completed 06/02/2015 Appointment: María Elena Appiah WPtel: [address] [place], [place] [id number] ACUTE ILLNESS 05/24/2015 Visit Plan: Increase clonidine to 0.2mg q HS Add cymbalta 30mg q HS Recheck 2weeks Stress Reducers Check fasting lab Discussed sleep study 05/20/2015 Appointment: María Elena Appiah WPtel: [address] [place] [address] ACUTE ILLNESS 05/20/2015 Patient Education: Patient Medication Summary Completed 05/20/2015 Patient Education: [facility] - Saving [employer] - Cymbalta - 18-64 - Dynamic Portal ID Completed 05/20/2015 Appointment: María Elena Appiah WPtel: [address] [place] [address] BP CHECK 05/19/2015 Patient Education: Patient Medication Summary Completed 05/19/2015 Visit Plan: Topical Bactroban alternatin g with topical betamethasone Recheck 2weeks 05/10/2015 Appointment: María Elena Appiah WPtel: [address] [place] [address] 05/07 vm cn...05/07 appt confirmed OFFICE SURGER Y 05/10/2015 Patient Education: Patient Medication Summary Completed 05/10/2015 Referral: Patrick [facility] [place] Referral Initiated 05/04/2015 Visit Plan: Saline nasal flushes prn. Ty lenol/Motrin prn headache. Notify if persists/symptoms worsening. Depomedrol 40mg IM today 03/16/2015 Appointment: María Elena Appiah WPtel: [address] [place] [address] ACUTE ILLNESS 03/16/2015 Patient Education: Patient Medication Summary Completed 03/16/2015 Appointment: María Elena Appiah WPtel: [address] [place] [address] ER Follow UP 03/09/2015 Visit Plan: Cryotherapy to lesions as ab ove 10/27/2014 Appointment: María Elena Appiah WPtel: [address] [place] [address] OFFICE SURGERY 10/27/2014 Patient Education: Patient Medication Summary Completed 10/27/2014 Appointment: June Flores WPtel: [address] [place] [address] ACUTE ILLNESS 09/11/2014 Patient Education: Patient Medication Summary Completed 09/11/2014 Visit Plan: Lab discussed Lipitor 10mg d aily Coenzyme Q-10 400mg daily Vitamin D3 5000u daily Recheck lipids with LFTs in 3mos then fwup 08/31/2014 Appointment: María Elena Appiah WPtel: [address] [place] [address] 08/28 voicemail FOLLOW UP 08/31/2014 Patient Education: Patient Medication Summary Completed 08/31/2014 Appointment: María Elena Appiah WPtel: [address] [place] [address] [place] LAB 08/27/2014 Appointment: María Elena Appiah WPtel: [address] [place] [address] US LAB 08/27/2014 Patient Education: Patient Medication Summary Completed 08/27/2014 Appointment: María Elena Appiah WPtel: [address] [place] [address] ACUTE ILLNESS 07/23/2014 Appointment: María Elena Appiah WPtel: [address] [place] [address] ACUTE ILLNESS 07/21/2014 Patient Education: Patient Medication Summary Completed 07/21/2014 Visit Plan: Kenalog 40mg IM today Contin ue narendra and singulair Add Flonase 07/15/2014 Appointment: María Elena Appiah WPtel: [address] [place] [address] ACUTE ILLNESS 07/15/2014 Appointment: María Elena Appiah WPtel: [address] [place] [address] ACUTE ILLNESS 07/15/2014 Patient Education: Patient Medication Summary Completed 07/15/2014 Visit Plan: Will do metolazone 2.5mg prn with 6 potassium and see if causes as severe cramping Trial of of seroquel XR 50mg q PM with evening meal and let us know how works 05/18/2014 Appointment: María Elena Appiah WPtel: [address] [place], [place] [phone] 05/15 left message FOLLOW UP 05/18/2014 Patient Education: Patient Medication Summary Completed 05/18/2014 Appointment: María Elena Appiah WPtel: [address] [place] [phone] [place] LAB 05/14/2014 Patient Education: Patient Medication Summary Completed 05/14/2014 Appointment: María Elena Appiah WPtel: [address] [place] [phone] [place] INJECTION 04/22/2014 Visit Plan: Nimco today a nd finish abx given from urgent care 04/21/2014 Appointment: María Elena Appiah WPtel: [address] [place] [phone] [place] INJECTION 04/21/2014 Patient Education: Patient Medication Summary Completed 04/21/2014 Appointment: June Flores WPtel: [address] [place], [place] [phone] ACUTE ILLNESS 03/04/2014 Patient Education: Patient Medication Summary Completed 03/04/2014 Appointment: María Elena Appiah WPtel: [address] [place], [place] [phone] [place] INJECTION 02/27/2014 Patient Education: Patient Medication Summary Completed 02/27/2014 Visit Plan: Cryotherapy as above to all lesions Patient wants to try no meds for insomnia for a while and see how goes 01/13/2014 Appointment: María Elena Appiah WPtel: [address] [place], [place] [phone] OFFICE SURGERY 01/13/2014 Patient Education: Patient Medication Summary Completed 01/13/2014 Visit Plan: Stop Melatonin Stop Soma Tri al of trazadone 75mg q HS See ENT for possible tubes as has had chronic ETD and serous otitis media with numerous steroids 12/24/2013 Appointment: María Elena Appiah WPtel: [address] [place] [address] ACUTE ILLNESS 12/24/2013 Patient Education: Patient Medication Summary Completed 12/24/2013 Visit Plan: Saline nasal flushes prn. Ty lenol/Motrin prn headache. Notify if persists/symptoms worsening. 11/12/2013 Appointment: María Elena Appiah WPtel: [address] [place] [address] ACUTE ILLNESS 11/12/2013 Patient Education: Patient Medication Summary Completed 11/12/2013 Appointment: María Elena Appiah WPtel: [address] [place] [address] ACUTE ILLNESS 10/21/2013 Patient Education: Patient Medication Summary Completed 10/21/2013 Visit Plan: Sleep hygiene and sleep rout ine Melatonin 10mg q HS Support stockings and observe 09/22/2013 Appointment: María Elena Appiah WPtel: [address] [place] [address] ACUTE ILLNESS 09/22/2013 Patient Education: Patient Medication Summary Completed 09/22/2013 Appointment: June Flores WPtel: [address] [place] [address] ACUTE ILLNESS 08/27/2013 Patient Education: Patient Medication Summary Completed 08/27/2013 Visit Plan: Proceed with CT scan of head /neck Proceed with occipital nerve injections Butrans 20mcg patch weekly until can get into see Dr. Mcdonough for injections 08/04/2013 Appointment: María Elena Appiah WPtel: [address] [place] [address] FOLLOW UP 08/04/2013 Patient Education: Patient Medication Summary Completed 08/04/2013 Visit Plan: OMT done Daily neck stretche s, moist heat Increase Celebrex to 200mg BID Add flexeril 07/23/2013 Appointment: María Elena Appiah WPtel: [address] [place] [address] 07/22 voicemail FOLLOW UP 07/23/2013 Patient Education: Patient Medication Summary Completed 07/23/2013 Appointment: María Elena Appiah WPtel: [address] [place] [address] ACUTE ILLNESS 06/23/2013 Patient Education: Patient Medication Summary Completed 06/23/2013 Appointment: María Elena Appiah WPtel: [address] [place] [address] ACUTE ILLNESS 05/26/2013 Patient Education: Patient Medication Summary Completed 05/26/2013 Visit Plan: Decrease clonidine to 0.1mg TID If BP remains stable consider decreasing amlodopine Prednisone for 5 days BP check in 1mo 04/16/2013 Appointment: María Elena Appiah WPtel: [address] [place] [address] 04/14 pt called and confirmed appt FOLLOW UP 04/16/2013 Patient Education: Patient Medication Summary Completed 04/16/2013 Appointment: María Elena Appiah WPtel: [address] [place] [address] ACUTE ILLNESS 03/05/2013 Patient Education: Patient Medication Summary Completed 03/05/2013 Visit Plan: Pt has MARIA ELENA on with Dr. Mcdonough Continue Butrans patch Refill Hydrocodone early tomorrow 12/23/2012 Appointment: María Elena Appiah WPtel: [address] [place] [address] FOLLOW UP 12/23/2012 Patient Education: Patient Medication Summary Completed 12/23/2012 Appointment: Lashawn Eckert WPtel: [address] [facility] [place] [address] ACUTE ILLNESS 12/16/2012 Patient Education: Patient Medication Summary Completed 12/16/2012 Visit Plan: Proceed with updated MRI of LS spine Continue gabapentin and add soma and diclofenac Will likely need to go for another epidural 12/09/2012 Appointment: María Elena Appiah WPtel: [address] [place] [address] ACUTE ILLNESS 12/09/2012 Patient Education: Patient Medication Summary Completed 12/09/2012 Visit Plan: Injection as above Finish me drol dose pack Chiropracter this afternoon 12/04/2012 Appointment: María Elena Appiah WPtel: [address] [place] [address] ACUTE ILLNESS 12/04/2012 Patient Education: Patient Medication Summary Completed 12/04/2012 Appointment: Mary Tillman WPtel: [address] [place] [address] FOLLOW UP 11/22/2012 Patient Education: Patient Medication Summary Completed 11/22/2012 Appointment: María Elena Appiah WPtel: [address] [place] [address] ACUTE ILLNESS 11/21/2012 Patient Education: Patient Medication Summary Completed 11/21/2012 Appointment: María Elena Appiah WPtel: [address] [place] [address] BP CHECK 11/07/2012 Patient Education: Patient Medication Summary Completed 11/07/2012 Visit Plan: reports extra clonidine and extra amlodipine and extra alprazalam. extra Ketolorac and promethazine last night. Bystolic 10 mg QAM and will continue all other blood pressure meds. Pt. encouraged to rest and hydrate. Discussed stroke and [place] symptoms. Pt. instructed to seek ER eval if symptoms worsen or headache persists. Pt. agrees to ER eval/EMS transport if symptoms worsen. BP re-check. 10/29/2012 Appointment: Lashawn Eckert WPtel: [address] [place] [address] ACUTE ILLNESS 10/29/2012 Patient Education: Patient Medication Summary Completed 10/29/2012 Appointment: María Elena Appiah WPtel: [address] [place], [place] [id number] ACUTE ILLNESS 10/14/2012 Patient Education: Patient Medication Summary Completed 10/14/2012 Appointment: María Elena Appiah WPtel: [address] [place], [place] [id number] UA 09/27/2012 Patient Education: Patient Medication Summary Completed 09/27/2012 Appointment: María Elena Appiah WPtel: [address] [place], [place] [id number] 09/25/2012 Patient Education: Patient Medication Summary Completed 09/25/2012 Appointment: María Elena Appiah WPtel: [address] [place] [address] BP CHECK 09/24/2012 Appointment: María Elena Appiah WPtel: [address] [place] [address] ACUTE ILLNESS 08/29/2012 Patient Education: Patient Medication Summary Completed 08/29/2012 Visit Plan: Cryotherapy as above See Karlos m for right ear lesion--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 ACUTE ILLNESS 05/06/2012 Patient Education: Patient Medication Summary Completed 05/06/2012 Visit Plan: Pt wants to hold on any furt her sleep medications 04/03/2012 Appointment: María Elena Appiah WPtel: [address] [place] [address] FOLLOW UP 04/03/2012 Patient Education: Patient Medication Summary Completed 04/03/2012 Appointment: María Elena Appiahtel: [address] [place] [address] [place] FOLLOW UP 03/19/2012 Patient Education: Patient Medication Summary Completed 03/19/2012 Appointment: María Elena Appiahtel: [address] [place] [address] BP CHECK 02/22/2012 Patient Education: Patient Medication Summary Completed 02/22/2012 Appointment: María Elena Appiahtel: [address] [place] [address] BP CHECK 02/21/2012 Patient Education: Patient Medication Summary Completed 02/21/2012 Visit Plan: Doxycycline and bactroban fo r foot Supportive care on ankles and knees Add norvasc for BP 02/20/2012 Appointment: María Elena Appiahtel: [address] [place] [address] ER Follow UP 02/20/2012 Patient Education: Patient Medication Summary Completed 02/20/2012 Appointment: María Elena Appiahtel: [address] [place] [address] ACUTE ILLNESS 01/30/2012 Patient Education: Patient Medication Summary Completed 01/30/2012 Appointment: María Elena Appiahtel: [address] [place] [address] ACUTE ILLNESS 01/24/2012 Patient Education: Patient Medication Summary Completed 01/24/2012 Visit Plan: Daily back stretches, moist heat, Biofreeze prn OMT done 01/10/2012 Appointment: María Elena Appiahtel: [address] [place] [address] ACUTE ILLNESS 01/10/2012 Patient Education: Patient Medication Summary Completed 01/10/2012 Appointment: María Elena Appiahtel: [address] [place] [address] [place] FOLLOW UP 12/11/2011 Patient Education: Patient Medication Summary Completed 12/11/2011 Appointment: María Elena Appiahtel: [address] [place] [address] ACUTE ILLNESS 11/09/2011 Patient Education: Patient Medication Summary Completed 11/09/2011 Appointment: Mraía Elena Appiah WPtel: [address] [place] [address] ACUTE ILLNESS 09/13/2011 Patient Education: Patient Medication Summary Completed 09/13/2011 Visit Plan: Check CBC, TSH, Free T4, CMP , ESR, Vit D, B12 now Start Prednisone today 08/31/2011 Appointment: María Elena Appiahtel: [address] [place] [address] ACUTE ILLNESS 08/31/2011 Patient Education: Patient Medication Summary Completed 08/31/2011 Appointment: María Elena Appiah WPtel: [address] [place] [address] [place] INJECTION 07/20/2011 Patient Education: Patient Medication Summary Completed 07/20/2011 Visit Plan: Continue current meds Monite r BP Cont stretches from PT 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 07/06/2011 Appointment: María Elena Appiahtel: [address] [place] [address] FOLLOW UP 07/06/2011 Patient Education: Patient Medication Summary Completed 07/06/2011 Appointment: María Elena Appiah WPtel: [address] [place] [address] [place] BP CHECK 06/06/2011 Patient Education: Patient Medication Summary Completed 06/06/2011 Visit Plan: Add Bystolic at 2.5mg QAM Ad d Robaxin 750mg 2 po q HS BP check in 2wks 05/22/2011 Appointment: María Elena Appiah WPtel: [address] [place] [address] FOLLOW UP 05/22/2011 Patient Education: Patient Medication Summary Completed 05/22/2011 Appointment: María Elena Appiah WPtel: [address] [place], [place] [phone] ER Follow UP 05/09/2011 Patient Education: Patient Medication Summary Completed 05/09/2011 Appointment: María Elena Appiah WPtel: [address] [place], [place] [id number] FOLLOW UP 02/22/2011 Visit Plan: Rx written for Hydrocodone 1 0/325mg #240 See Ortho 02/14/2011 Appointment: María Elena Appiah WPtel: [address] [place] [address] OMT 02/14/2011 Patient Education: Patient Medication Summary [...] lab work. 02/03/2011 Appointment: Lashawn Eckert WPtel: [address] [place], [place] [id number] ACUTE ILLNESS 02/03/2011 Patient Education: Patient Medication Summary Completed 02/03/2011 Visit Plan: OMT done Cont daily stretche s 01/31/2011 Appointment: María Elena Appiah WPtel: [address] [place], [place] [id number] ACUTE ILLNESS 01/31/2011 Patient Education: Patient Medication Summary Completed 01/31/2011 Visit Plan: Continue pain meds OMT done Proceed with PT No work this summer01/25/2011 Appointment: María Elena Appiahtel: [address] [place] [address] ACUTE ILLNESS 01/25/2011 Patient Education: Patient Medication Summary Completed 01/25/2011 Visit Plan: Start PT Long discussion abo ut getting pain meds from only us and can only have max of 4grams of tylenol per day Change to Hydrocodone 10/325mg 1- 2 po TID prn pain--#180 called to [facility] 01/18/2011 Appointment: María Elena Appiah WPtel: [address] [place] [address] FOLLOW UP 01/18/2011 Patient Education: Patient Medication Summary Completed 01/18/2011 Visit Plan: Daily back stretches, moist heat, Biofreeze prn 11/29/2010 Appointment: María Elena Appiahtel: [address] [place] [address] ER Follow UP 11/29/2010 Patient Education: Patient Medication Summary Completed 11/29/2010 Visit Plan: Saline nasal flushes prn. Ty lenol/Motrin prn headache. Notify if persists/symptoms worsening. Finish augmentin Add Medrol Dose Pack 10/10/2010 Appointment: María Elena Appiahtel: [address] [place], [place] [id number] ACUTE ILLNESS 10/10/2010 Patient Education: Patient Medication Summary Completed 10/10/2010 Visit Plan: Cryotherapy x3 to multiple l esions on both forearms 07/19/2010 Appointment: María Elena Appiahtel: [address] [place], [place] [id number] OFFICE SURGERY 07/19/2010 Patient Education: Patient Medication Summary Completed 07/19/2010 Appointment: María Elena Appiahtel: [address] [place], [place] [id number] BP CHECK 07/06/2010 Patient Education: Patient Medication Summary Completed 07/06/2010 Appointment: María Elena Appiah: [address] [place], [place] [id number] BP CHECK 06/30/2010 Patient Education: Patient Medication Summary Completed 06/30/2010 Appointment: María Elena Appiah WPtel: [address] [place], [place] [phone] BP CHECK 06/20/2010 Patient Education: Patient Medication Summary Completed 06/20/2010 Visit Plan: Change Diovan to Exforge 160 /5mg QD OMT done to thoracics BP check in 2wks 06/07/2010 Appointment: María Elena Appiah WPtel: [address] [place] [address] FOLLOW UP 06/07/2010 Patient Education: Patient Medication Summary Completed 06/07/2010 Appointment: María Elena Appiah WPtel: [address] [place] [address] BP CHECK 06/03/2010 Patient Education: Patient Medication Summary Completed 06/03/2010 Appointment: María Elena Appiah WPtel: [address] [place] [address] BP CHECK 06/01/2010 Patient Education: Patient Medication Summary Completed 06/01/2010 Visit Plan: Irritated skin tags to left neck x2 excised at base with scissors and base cauterized 05/30/2010 Appointment: María Elena Appiah WPtel: [address] [place] [address] OFFICE SURGERY 05/30/2010 Patient Education: Patient Medication Summary Completed 05/30/2010 Visit Plan: Saline nasal flushes prn. Ty lenol/Motrin prn headache. Notify if persists/symptoms worsening. Restart Nasonex Has allergy testing set for May 25 04/27/2010 Appointment: María Elena Appiah WPtel: [address] [place], [place] [phone] 04/27/2010 Patient Education: Patient Medication Summary Completed 04/27/2010 Visit Plan: Saline nasal flushes prn. Ty lenol/Motrin prn headache. Notify if persists/symptoms worsening. Omnaris BID plus injections 04/05/2010 Appointment: María Elena Appiah WPtel: [address] [place] [address] ACUTE ILLNESS 04/05/2010 Patient Education: Patient Medication Summary Completed 04/05/2010 Visit Plan: Saline nasal flushes prn. Ty lenol/Motrin prn headache. Notify if persists/symptoms worsening. 03/09/2010 Appointment: María Elena Appiah WPtel: [address] [place] [address] ACUTE ILLNESS 03/09/2010 Patient Education: Patient Medication Summary Completed 03/09/2010 Visit Plan: Cont Clonidine as is Cont Pr emarin Fwup with surgery as scheduled 03/03/2010 Appointment: María Elena Appiahtel: [address] [place] [address] FOLLOW UP 03/03/2010 Patient Education: Patient Medication Summary Completed 03/03/2010 Visit Plan: Check Pelvic US now Dukee tacho Sal C vs Hysterectomy 01/17/2010 Appointment: María Elena Appiah WPtel: [address] [place] [address] ACUTE ILLNESS 01/17/2010 Patient Education: Patient Medication Summary Completed 01/17/2010 Visit Plan: Check fasting lab and schedu le Mammogram 2gm Na Diet Trial of Ambien 10mg qhs Fwup pending lab results 12/27/2009 Appointment: María Elena Appiah WPtel: [address] [place] [address] [place] ESTABLISHED PATIENT 12/27/2009 Patient Education: Patient Medication Summary Completed 12/27/2009 Referral: Canelo Overton WPtel: [phone] [id number] Referral Initiated Referral: Philipp Flores WPtel: [address] [id number] [place] Referral Appointment Requested Instructions Comment . [...] to rest and hydrate. Discussed stroke and [place] symptoms. Pt. instructed to seek ER eval [...] 1-2 po TID prn pain--#180 called to Rad[facility] . Daily back stretches, moist heat, Biof [...]
--- OUTSIDE RECORDS SUMMARY | 2020-03-13 04:14 | XMS REPORT | CCD ---
Author Author Gale Appiah D.O. Organization [facility] Address [address] [place] [address] Phone Care Team Providers Care Radiology Scheduler Name Role Phone María Elena Appiah D.O., PP Unavailable CCM Unavailable Summary Purpose Interface Exchange Insurance Providers Payer name Policy type / Coverage type Covered republican ID Effective Begin Date Effective End Date [facility] Commercial Insurance [id number] Unknown Family History Family History data not found Social History Social History Element Codes Description Effective Dates Tobacco history SNOMED CT: [id number] Never smoker 05/22/2011 Allergies, Adverse Reactions, Alerts [...] Fill Instructions Premarin 1.25 mg tablet RxNorm: 308738 1 Tablet(s) Oral QD 02/16/20 20 05/15/2020 Active celecoxib 200 mg capsule RxNorm: 755978 1 Capsule(s) Or al two times a day as needed for pain 02/16/2020 05/15/2020 Active Farxiga 10 mg tablet RxNorm: 5343350 1 Tablet(s) Oral QAM 02/13/2020 05/13/2020 Active Farxiga 10 mg tablet RxNorm: 0931503 1 Tablet(s) Oral QAM 02/13/2020 02/12/2020 Inactive Keflex 500 mg capsule RxNorm: 953270 1 Capsule(s) Oral two time s a day 02/12/2020 02/19/2020 Active Lipitor 10 mg tablet RxNorm: 703321 TAKE ONE TABLET BY MOUTH DAILY 01/23/2020 No Stop Date Active Januvia 100 mg tablet RxNorm: 603215 TAKE ONE TABLET BY MOUTH DAILY 01/22/2020 No Stop Date Active gabapentin 300 mg capsule RxNorm: 999125 TAKE ONE CAPSU LE BY MOUTH EVERY NIGHT AT BEDTIME 01/22/2020 No Stop Date Active allopurinol 300 mg tablet RxNorm: 032279 TAKE ONE TABLET BY LOPEZ TH DAILY 01/22/2020 No Stop Date Active Klor-Con 8 mEq tablet,extended release RxNorm: 009585 T FARRUKH ONE TABLET BY MOUTH TWICE A DAY 01/22/2020 No Stop Date Active doxepin 25 mg capsule RxNorm: 3327999 TAKE ONE CAPSULE B Y MOUTH EVERY NIGHT AT BEDTIME NEEDED FOR SLEEP 01/22/2020 No Stop Date Active glimepiride 4 mg tablet RxNorm: 316653 1 Tablet(s) Oral two times a day replaces 2mg dose 01/13/2020 04/12/2020 Active lisinopril 40 mg tablet RxNorm: 695964 1 Tablet(s) Oral QD repl aces 20mg dose 01/13/2020 04/12/2020 Active hydrocodone 10 mg-acetaminophen 325 mg tablet RxNorm: 212951 1-2 Tablet(s) Oral three times a day as needed for pain 01/12/2020 No Stop Date Active cyclobenzaprine 10 mg tablet RxNorm: 316454 TAKE ONE TA BLET BY MOUTH THREE TIMES A DAY NEEDED FOR MUSCLE SPASMS 01/05/2020 No Stop Date Active triamterene 75 mg-hydrochlorothiazide 50 mg tablet RxNorm: 3 30559 TAKE ONE TABLET BY MOUTH DAILY 12/29/2019 No Stop Date Active Klor-Con 8 mEq tablet,extended release RxNorm: 841609 T FARRUKH ONE TABLET BY MOUTH TWICE A DAY 12/19/2019 01/21/2020 Inactive allopurinol 300 mg tablet RxNorm: 900426 TAKE ONE TABLET BY LOPEZ TH DAILY 12/19/2019 01/21/2020 Inactive glimepiride 2 mg tablet RxNorm: 975278 TAKE ONE TABLET BY MOUTH TWICE A DAY 12/19/2019 01/12/2020 Inactive hydrocodone 10 mg-acetaminophen 325 mg tablet RxNorm: 564482 1-2 Tablet(s) Oral three times a day as needed for pain 12/10/2019 01/11/2020 Inactive Januvia 100 mg tablet RxNorm: 842375 1 Tablet(s) Oral QD 11/20/2019 0 11/20/2019 Inactive glimepiride 2 mg tablet RxNorm: 210344 1 Tablet(s) Oral two sawyer es a day 11/20/2019 12/18/2019 Inactive cyclobenzaprine 10 mg tablet RxNorm: 205424 TAKE ONE TA BLET BY MOUTH THREE TIMES A DAY NEEDED FOR MUSCLE SPASMS 11/17/2019 01/04/2020 Inactive doxepin 25 mg capsule RxNorm: 0634583 TAKE ONE CAPSULE B Y MOUTH EVERY NIGHT AT BEDTIME NEEDED FOR SLEEP 11/16/2019 01/21/2020 Inactive Klor-Con 8 mEq tablet,extended release RxNorm: 415550 T FARRUKH ONE TABLET BY MOUTH TWICE A DAY 11/16/2019 12/18/2019 Inactive hydrocodone 10 mg-acetaminophen 325 mg tablet RxNorm: 825267 1-2 Tablet(s) Oral three times a day as needed for pain 11/10/2019 12/09/2019 Inactive cyclobenzaprine 10 mg tablet RxNorm: 911550 TAKE ONE TA BLET BY MOUTH THREE TIMES A DAY NEEDED FOR MUSCLE SPASMS 10/23/2019 11/16/2019 Inactive duloxetine 60 mg capsule,delayed release RxNorm: 231094 1 Capsu le(s) Oral QD 10/17/2019 04/13/2020 Active Singulair 10 mg tablet RxNorm: 254450 1 Tablet(s) Oral QD 10/17/2019 04/14/2020 Active metoprolol tartrate 100 mg tablet RxNorm: 424323 1 Tabl et(s) Oral two times a day 10/17/2019 04/13/2020 Active clonidine HCl 0.1 mg tablet RxNorm: 423296 1 Tablet(s) Oral fou r times a day 10/17/2019 04/13/2020 Active celecoxib 200 mg capsule RxNorm: 318997 1 Capsule(s) Or al two times a day as needed for pain 10/17/2019 02/15/2020 Inactive lisinopril 20 mg tablet RxNorm: 083092 1 Tablet(s) Oral QD 10/17/19 20 01/12/2020 Inactive gabapentin 300 mg capsule RxNorm: 052773 1 Capsule(s) O ral every night at bedtime 10/17/2019 01/15/2020 Inactive Klor-Con 8 mEq tablet,extended release RxNorm: 611871 1 Tablet(s) Oral two times a day 10/17/2019 11/15/2019 Inactive Januvia 100 mg tablet RxNorm: 428844 1 Tablet(s) Oral QD 10/17/2019 0 01/12/2020 Inactive Lipitor 10 mg tablet RxNorm: 439257 1 Tablet(s) Oral QD 10/17/2019 Inactive Steglatro 15 mg tablet RxNorm: 9948645 1 Tablet(s) Oral QD 10/17/1902/12/2020 Inactive Glyxambi 25 mg-5 mg tablet RxNorm: 5644731 1 Tablet(s) Oral QD 01/202010/16/2019 Inactive Patient will bring in copay discount card as well Glyxambi 25 mg-5 mg tablet RxNorm: 2597955 1 Tablet(s) Oral QD 01/202010/14/2019 Inactive Patient will bring in copay discount card as well Keflex 500 mg capsule RxNorm: 785370 1 Capsule(s) Oral two time s a day 10/07/2019 10/14/2019 Inactive Premarin 1.25 mg tablet RxNorm: 760053 1 Tablet(s) Oral QD 09/30/1902/15/2020 Inactive hydrocodone 10 mg-acetaminophen 325 mg tablet RxNorm: 476884 1-2 Tablet(s) Oral three times a day as needed for pain 09/30/2019 09/30/2019 Inactive baclofen 10 mg tablet RxNorm: 044240 TAKE ONE TABLET BY MOUTH THREE TIMES A DAY NEEDED 09/19/2019 No Stop Date Active gabapentin 300 mg capsule RxNorm: 317112 TAKE ONE CAPSU LE BY MOUTH EVERY NIGHT AT BEDTIME 09/19/2019 10/16/2019 Inactive Klor-Con 8 mEq tablet,extended release RxNorm: 969195 T FARRUKH ONE TABLET BY MOUTH TWICE A DAY 1 Tablet(s) Oral two times a day 09/19/2019 10/16/2019 Renu ctive hydrocodone 10 mg-acetaminophen 325 mg tablet RxNorm: 192562 1-2 Tablet(s) Oral three times a day as needed for pain 09/19/2019 09/29/2019 Inactive duloxetine 60 mg capsule,delayed release RxNorm: 500982 TAKE ONE CAPSULE BY MOUTH DAILY 09/11/2019 10/16/2019 Inactive Lipitor 10 mg tablet RxNorm: 637574 TAKE ONE TABLET BY MOUTH AT BEDTIME 09/11/2019 10/16/2019 Inactive lisinopril 20 mg tablet RxNorm: 988560 TAKE ONE TABLET BY MOUTH DAILY .... THIS REPLACE 10MG TABLETS 09/11/2019 10/16/2019 Inactive triamterene 75 mg-hydrochlorothiazide 50 mg tablet RxNorm: 3 36003 TAKE ONE TABLET BY MOUTH DAILY 09/11/2019 12/28/2019 Inactive allopurinol 300 mg tablet RxNorm: 400178 TAKE ONE TABLET BY LOPEZ TH DAILY 09/11/2019 12/18/2019 Inactive celecoxib 200 mg capsule RxNorm: 962220 TAKE ONE CAPSUL E BY MOUTH TWICE A DAY NEEDED FOR PAIN 09/11/2019 10/16/2019 Inactive clonidine HCl 0.1 mg tablet RxNorm: 341552 TAKE ONE TAB LET BY MOUTH FOUR TIMES A DAY 09/11/2019 10/16/2019 Inactive doxepin 25 mg capsule RxNorm: 7058864 1 Capsule(s) Oral every night at bedtime as needed for sleep 08/21/2019 11/15/2019 Inactive hydrocodone 10 mg-acetaminophen 325 mg tablet RxNorm: 016783 1-2 Tablet(s) PO TID 08/12/2019 09/29/2019 Inactive as needed for pa in - Previous quantity #240, will start dosing for #180 in April [address] Ignacio. Medrol (Dustin) 4 mg tablets in a dose pack RxNorm: 120770 Tablet(s) Oral As Directed 07/21/2019 09/29/2019 Inactive Premarin 1.25 mg tablet RxNorm: 350651 1 Tablet(s) Oral QD 07/02/2009/29/2019 Inactive hydrocodone 10 mg-acetaminophen 325 mg tablet RxNorm: 033308 1-2 Tablet(s) PO TID 07/01/2019 08/11/2019 Inactive as needed for pa in - Previous quantity #240, will start dosing for #180 in April [address] Ignacio. gabapentin 300 mg capsule RxNorm: 304359 1 Capsule(s) PO QHS 201809/18/2019 Inactive celecoxib 200 mg capsule RxNorm: 761608 1 Capsule(s) Or al two times a day as needed for pain 06/27/2019 06/27/2019 Inactive doxepin 25 mg capsule RxNorm: 3460038 TAKE ONE CAPSULE B Y MOUTH EVERY NIGHT AT BEDTIME NEEDED FOR SLEEP 06/24/2019 08/20/2019 Inactive Singulair 10 mg tablet RxNorm: 310195 TAKE ONE TABLET BY MOUTH JOSÉ Y 06/24/2019 10/16/2019 Inactive furosemide 40 mg tablet RxNorm: 667218 TAKE ONE TABLET BY MOUTH EVERY MORNING NEEDED FOR EDEMA . TAKE WITH POTASSIUM 06/24/2019 01/12/2020 Inactive lisinopril 20 mg tablet RxNorm: 335568 TAKE ONE TABLET BY MOUTH DAILY .... THIS REPLACE 10MG TABLETS 06/24/2019 09/10/2019 Inactive nystatin-triamcinolone 100,000 unit/g-0.1 % topical cream Rx Norm: 0231996 1 Application Topical two times a day 06/12/2019 06/19/2019 Inactive apply BID for 1 week nystatin-triamcinolone 100,000 unit/g-0.1 % topical cream Rx Norm: 2599058 1 Application Topical two times a day 06/12/2019 06/11/2019 Inactive apply BID for 1 week hydrocodone 10 mg-acetaminophen 325 mg tablet RxNorm: 461684 1-2 Tablet(s) PO QID as needed for pain MUST LAST 30 DAYS 05/28/2019 06/26/2019 Inactiv e (Response to an electronic controlled substance refill request - RxReferenceNumber: [id number]) baclofen 20 mg tablet RxNorm: 721716 1 Tablet(s) PO TID as needed for muscle spasm 05/19/2019 05/27/2019 Inactive gabapentin 300 mg capsule RxNorm: 627152 1 Capsule(s) PO QHS 201805/27/2019 Inactive lisinopril 20 mg tablet RxNorm: 629843 1 Tablet(s) PO Q D TAKE ONE TABLET BY MOUTH DAILY, REPLACES 10 MG DOSE 05/19/2019 06/23/2019 Inactive doxepin 25 mg capsule RxNorm: 8509734 TAKE ONE CAPSULE B Y MOUTH EVERY NIGHT AT BEDTIME NEEDED FOR SLEEP 05/16/2019 06/14/2019 Inactive lisinopril 20 mg tablet RxNorm: 654990 TAKE ONE TABLET BY MOUTH DAILY, REPLACES 10 MG DOSE 05/16/2019 05/18/2019 Inactive Singulair 10 mg tablet RxNorm: 638738 TAKE ONE TABLET BY MOUTH JOSÉ Y 05/16/2019 06/14/2019 Inactive gabapentin 300 mg capsule RxNorm: 200222 1 Capsule(s) PO QHS 201805/04/2019 Inactive estropipate 1.5 mg tablet RxNorm: 060132 1 Tablet(s) PO QD 05/05/20 19 05/27/2019 Inactive estropipate 1.5 mg tablet RxNorm: 237888 1 Tablet(s) PO QD 05/05/20 19 05/04/2019 Inactive gabapentin 300 mg capsule RxNorm: 543175 1 Capsule(s) PO QHS 201805/18/2019 Inactive hydrocodone 10 mg-acetaminophen 325 mg tablet RxNorm: 882179 1-2 Tablet(s) PO QID as needed for pain MUST LAST 30 DAYS 04/25/2019 05/24/2019 Inactiv e (Response to an electronic controlled substance refill request - RxReferenceNumber: [id number]) cyclobenzaprine 10 mg tablet RxNorm: 297456 TAKE ONE TA BLET BY MOUTH THREE TIMES A DAY NEEDED FOR MUSCLE SPASMS 04/24/2019 05/18/2019 Inactive metoprolol tartrate 100 mg tablet RxNorm: 590990 TAKE O NE TABLET BY MOUTH TWICE A DAY 04/24/2019 10/16/2019 Inactive Lyrica 75 mg capsule RxNorm: 685888 1 Capsule(s) PO QHS 03/25/2019 Inactive duloxetine 60 mg capsule,delayed release RxNorm: 250900 TAKE ONE CAPSULE BY MOUTH DAILY 03/21/2019 05/19/2019 Inactive triamterene 75 mg-hydrochlorothiazide 50 mg tablet RxNorm: 3 30155 TAKE ONE TABLET BY MOUTH DAILY 03/21/2019 05/19/2019 Inactive Klor-Con 8 mEq tablet,extended release RxNorm: 308921 T FARRUKH ONE TABLET BY MOUTH TWICE A DAY 03/21/2019 09/18/2019 Inactive Lipitor 10 mg tablet RxNorm: 994558 TAKE ONE TABLET BY MOUTH AT BEDTIME 03/21/2019 09/10/2019 Inactive clonidine HCl 0.1 mg tablet RxNorm: 089989 TAKE ONE TAB LET BY MOUTH FOUR TIMES A DAY 03/21/2019 05/19/2019 Inactive allopurinol 300 mg tablet RxNorm: 117513 TAKE ONE TABLET BY LOPEZ TH DAILY 03/21/2019 05/19/2019 Inactive hydrocodone 10 mg-acetaminophen 325 mg tablet RxNorm: 709338 1-2 Tablet(s) PO QID as needed for pain MUST LAST 30 DAYS 02/28/2019 03/29/2019 Inactiv e (Response to an electronic controlled substance refill request [id number]) furosemide 40 mg tablet RxNorm: 904821 TAKE ONE TABLET BY MOUTH EVERY MORNING NEEDED FOR EDEMA . TAKE WITH POTASSIUM 02/21/2019 03/22/2019 Inactive cyclobenzaprine 10 mg tablet RxNorm: 209952 TAKE ONE TA BLET BY MOUTH THREE TIMES A DAY NEEDED FOR MUSCLE SPASMS 02/21/2019 04/21/2019 Inactive lisinopril 20 mg tablet RxNorm: 267123 TAKE ONE TABLET BY MOUTH DAILY, REPLACES 10 MG DOSE 02/21/2019 05/15/2019 Inactive doxepin 25 mg capsule RxNorm: 8524338 TAKE ONE CAPSULE B Y MOUTH EVERY NIGHT AT BEDTIME NEEDED FOR SLEEP 02/21/2019 05/15/2019 Inactive nystatin 100,000 unit/gram topical cream RxNorm: 454764 APPLY TO AFFECTED AREA(S) TWO TIMES A DAY 02/21/2019 03/22/2019 Inactive estradiol 1 mg tablet RxNorm: 851285 2 Tablet(s) PO QD replaces premarin 01/22/2019 05/04/2019 Inactive lisinopril 20 mg tablet RxNorm: 351656 TAKE ONE TABLET BY MOUTH DAILY, REPLACES 10 MG DOSE 01/20/2019 02/18/2019 Inactive cyclobenzaprine 10 mg tablet RxNorm: 077283 TAKE ONE TA BLET BY MOUTH THREE TIMES A DAY NEEDED FOR MUSCLE SPASMS 01/20/2019 02/18/2019 Inactive metoprolol tartrate 100 mg tablet RxNorm: 653353 TAKE O NE TABLET BY MOUTH TWICE A DAY 01/20/2019 02/18/2019 Inactive cyclobenzaprine 10 mg tablet RxNorm: 039778 TAKE ONE TA BLET BY MOUTH THREE TIMES A DAY NEEDED FOR MUSCLE SPASMS 12/19/2018 01/17/2019 Inactive lisinopril 20 mg tablet RxNorm: 071296 TAKE ONE TABLET BY MOUTH DAILY, REPLACES 10 MG DOSE 12/19/2018 01/17/2019 Inactive duloxetine 60 mg capsule,delayed release RxNorm: 490629 TAKE ONE CAPSULE BY MOUTH DAILY 12/19/2018 01/17/2019 Inactive Lipitor 10 mg tablet RxNorm: 857277 TAKE ONE TABLET BY MOUTH AT BEDTIME 12/19/2018 01/17/2019 Inactive cyclobenzaprine 10 mg tablet RxNorm: 043008 1 Tablet(s) PO TID as needed for muscle spasm 11/19/2018 12/18/2018 Inactive Singulair 10 mg tablet RxNorm: 945128 1 Tablet(s) PO QD 11/19/2018 Inactive lisinopril 20 mg tablet RxNorm: 977461 TAKE ONE TABLET BY MOUTH DAILY, REPLACES 10 MG DOSE 11/15/2018 12/18/2018 Inactive hydrocodone 10 mg-acetaminophen 325 mg tablet RxNorm: 627863 1-2 Tablet(s) PO QID as needed for pain MUST LAST 30 DAYS 11/13/2018 12/12/2018 Inactiv e (Response to an electronic controlled substance refill request - RxReferenceNumber: [id number]) nystatin 100,000 unit/gram topical cream RxNorm: 273025 APPLY TO AFFECTED AREA(S) TWO TIMES A DAY 10/23/2018 11/06/2018 Inactive lisinopril 20 mg tablet RxNorm: 125705 1 Tablet(s) PO QD replac es 10mg dose 10/18/2018 11/14/2018 Inactive hydrocodone 10 mg-acetaminophen 325 mg tablet RxNorm: 882680 1-2 Tablet(s) QID as needed for pain MUST LAST 30 DAYS 10/08/2018 11/06/2018 Inactive (Response to an electronic controlled substance refill request - RxReferenceNumber: [id number]) lisinopril 10 mg tablet RxNorm: 386434 1 Tablet(s) PO QD 10/03/2018 0 01/21/2019 Inactive Celebrex 200 mg capsule RxNorm: 056127 TAKE ONE CAPSULE BY MOUT H TWICE A DAY 09/30/2018 05/04/2019 Inactive cyclobenzaprine 10 mg tablet RxNorm: 088277 TAKE ONE TA BLET BY MOUTH THREE TIMES A DAY NEEDED FOR MUSCLE SPASMS 09/30/2018 11/18/2018 Inactive doxepin 25 mg capsule RxNorm: 1923000 TAKE ONE CAPSULE B Y MOUTH EVERY NIGHT AT BEDTIME NEEDED 09/05/2018 10/16/2018 Inactive omeprazole 40 mg capsule,delayed release RxNorm: 200533 TAKE ONE CAPSULE BY MOUTH DAILY 09/05/2018 01/21/2019 Inactive furosemide 40 mg tablet RxNorm: 608743 TAKE ONE TABLET BY MOUTH EVERY MORNING NEEDED FOR EDEMA . TAKE WITH POTASSIUM 09/05/2018 11/03/2018 Inactive phentermine 37.5 mg tablet RxNorm: 333510 1 Tablet(s) PO QAM 201701/21/2019 Inactive doxepin 25 mg capsule RxNorm: 7230469 1 Capsule(s) PO QH S as needed for sleep TAKE ONE CAPSULE BY MOUTH EVERY NIGHT AT BEDTIME NEEDED 08/27/2018 09/04/2018 Inactive Keflex 500 mg capsule RxNorm: 464426 1 Capsule(s) PO TID 08/09/2018 1 10/19/2017 Inactive Diflucan 100 mg tablet RxNorm: 016533 1 Tablet(s) PO QD 08/09/2018 Inactive Premarin 1.25 mg tablet RxNorm: 521771 2 Tablet(s) PO QD 08/09/2018 0 05/04/2019 Inactive Zofran ODT 4 mg disintegrating tablet RxNorm: 525587 1 Tablet(s) PO Q4H as needed for nausea 08/09/2018 01/21/2019 Inactive metoprolol tartrate 100 mg tablet RxNorm: 392886 TAKE O NE TABLET BY MOUTH TWICE A DAY 2018 10/04/2018 Inactive doxepin 25 mg capsule RxNorm: 2620050 TAKE ONE CAPSULE B Y MOUTH EVERY NIGHT AT BEDTIME NEEDED 2018 08/26/2018 Inactive cyclobenzaprine 10 mg tablet RxNorm: 707608 TAKE ONE TA BLET BY MOUTH THREE TIMES A DAY NEEDED FOR MUSCLE SPASMS 2018 09/29/2018 Inactive hydrocodone 10 mg-acetaminophen 325 mg tablet RxNorm: 339417 1-2 Tablet(s) QID as needed for pain MUST LAST 30 DAYS 07/29/2018 08/27/2018 Inactive (Response to an electronic controlled substance refill request - RxReferenceNumber: [id number]) nystatin 100,000 unit/gram topical powder RxNorm: 931034 Applic ation TOP BID 07/22/2018 08/04/2018 Inactive doxepin 25 mg capsule RxNorm: 7325022 1 Capsule(s) PO QHS as needed 07/22/2018 08/05/2018 Inactive triamterene 75 mg-hydrochlorothiazide 50 mg tablet RxNorm: 3 64512 TAKE ONE TABLET BY MOUTH DAILY 07/05/2018 10/02/2018 Inactive duloxetine 60 mg capsule,delayed release RxNorm: 866036 TAKE ONE CAPSULE BY MOUTH DAILY 07/05/2018 09/02/2018 Inactive Klor-Con 8 mEq tablet,extended release RxNorm: 069991 T FARRUKH ONE TABLET BY MOUTH TWICE A DAY 07/05/2018 10/02/2018 Inactive Lipitor 10 mg tablet RxNorm: 515049 TAKE ONE TABLET BY MOUTH AT BEDTIME 07/05/2018 09/02/2018 Inactive allopurinol 300 mg tablet RxNorm: 173244 TAKE ONE TABLET BY LOPEZ TH DAILY 07/05/2018 10/02/2018 Inactive clonidine HCl 0.1 mg tablet RxNorm: 143251 TAKE ONE TAB LET BY MOUTH FOUR TIMES A DAY 07/05/2018 10/02/2018 Inactive hydrocodone 10 mg-acetaminophen 325 mg tablet RxNorm: 843289 1-2 Tablet(s) QID as needed for pain MUST LAST 30 DAYS 06/28/2018 07/27/2018 Inactive (Response to an electronic controlled substance refill request - RxReferenceNumber: [id number]) MediHoney (calcium alginate-honey) 4" X 5" bandage RxNorm: 1 Application TOP QD 06/17/2018 06/26/2018 Inactive honey-hydrocolloid dressing 4" X 5" RxNorm: 1 Application TOP QD 06/17/2018 07/16/2018 Inactive furosemide 40 mg tablet RxNorm: 292212 TAKE ONE TABLET BY MOUTH EVERY MORNING NEEDED FOR EDEMA . TAKE WITH POTASSIUM 06/10/2018 07/09/2018 Inactive This is a refill request. hydrocodone 10 mg-acetaminophen 325 mg tablet RxNorm: 745328 1-2 Tablet(s) QID as needed for pain MUST LAST 30 DAYS 05/30/2018 06/27/2018 Inactive (Response to an electronic controlled substance refill request - RxReferenceNumber: [id number]) acyclovir 800 mg tablet RxNorm: 862487 1 Tablet(s) PO 5x day 201705/22/2018 Inactive Premarin 1.25 mg tablet RxNorm: 199354 1-2 Tablet(s) PO QD 05/15/20 18 07/13/2018 Inactive cyclobenzaprine 10 mg tablet RxNorm: 796582 1 Tablet(s) PO TID as needed for muscle spasm 05/09/2018 05/08/2018 Inactive Medrol (Dustin) 4 mg tablets in a dose pack RxNorm: 674580 Tablet(s) PO As Directed 05/02/2018 06/16/2018 Inactive hydrocodone 10 mg-acetaminophen 325 mg tablet RxNorm: 552064 1-2 Tablet(s) QID as needed for pain MUST LAST 30 DAYS 04/30/2018 05/29/2018 Inactive (Response to an electronic controlled substance refill request - RxReferenceNumber: [id number]) duloxetine 60 mg capsule,delayed release RxNorm: 371576 TAKE ONE CAPSULE BY MOUTH DAILY 04/16/2018 05/15/2018 Inactive Celebrex 200 mg capsule RxNorm: 644156 TAKE ONE CAPSULE BY MOUT H TWICE A DAY 04/16/2018 06/14/2018 Inactive Singulair 10 mg tablet RxNorm: 357715 TAKE ONE TABLET BY MOUTH JOSÉ Y 04/16/2018 11/19/2018 Inactive Lipitor 10 mg tablet RxNorm: 092530 TAKE ONE TABLET BY MOUTH AT BEDTIME 04/16/2018 05/15/2018 Inactive hydrocodone 10 mg-acetaminophen 325 mg tablet RxNorm: 985014 1-2 Tablet(s) QID as needed for pain MUST LAST 30 DAYS 03/29/2018 04/27/2018 Inactive (Response to an electronic controlled substance refill request - RxReferenceNumber: [id number]) cyclobenzaprine 10 mg tablet RxNorm: 990294 1 Tablet(s) PO TID as needed for muscle spasm 03/18/2018 05/09/2018 Inactive omeprazole 40 mg capsule,delayed release RxNorm: 417274 1 Capsu le(s) PO QD 02/26/2018 08/24/2018 Inactive hydrocodone 10 mg-acetaminophen 325 mg tablet RxNorm: 343321 1-2 Tablet(s) QID as needed for pain MUST LAST 30 DAYS 02/26/2018 03/27/2018 Inactive (Response to an electronic controlled substance refill request - RxReferenceNumber: [id number]) metoprolol tartrate 100 mg tablet RxNorm: 222958 1 Tablet(s) PO BID 02/18/2018 08/05/2018 Inactive Lyrica 75 mg capsule RxNorm: 937894 1 Capsule(s) PO QHS 01/30/2018 Inactive phentermine 37.5 mg tablet RxNorm: 692580 1 Tablet(s) PO QAM 201706/16/2018 Inactive hydrocodone 10 mg-acetaminophen 325 mg tablet RxNorm: 498874 1-2 Tablet(s) QID as needed for pain MUST LAST 30 DAYS 01/29/2018 02/25/2018 Inactive (Response to an electronic controlled substance refill request - RxReferenceNumber: [id number]) Klor-Con 8 mEq tablet,extended release RxNorm: 260995 1 Tablet( s) PO BID 01/14/2018 07/04/2018 Inactive allopurinol 300 mg tablet RxNorm: 794377 1 Tablet(s) PO QD 01/15/2007/04/2018 Inactive Lipitor 10 mg tablet RxNorm: 452980 1 Tablet(s) PO QHS 01/14/201812/2017 Inactive triamterene 75 mg-hydrochlorothiazide 50 mg tablet RxNorm: 3 18333 1 Tablet(s) PO QD 01/14/2018 07/04/2018 Inactive hydrocodone 10 mg-acetaminophen 325 mg tablet RxNorm: 152141 1-2 Tablet(s) QID as needed for pain MUST LAST 30 DAYS 12/27/2017 01/25/2018 Inactive (Response to an electronic controlled substance refill request - RxReferenceNumber: [id number]) Onglyza 5 mg tablet RxNorm: 311328 1 Tablet(s) PO QD 12/18/201701/29 Inactive metformin 500 mg tablet RxNorm: 573852 1 Tablet(s) PO BID 12/11/2017 12/10/2017 Inactive metformin 500 mg tablet RxNorm: 654570 1 Tablet(s) PO BID 12/11/2017 12/17/2017 Inactive furosemide 40 mg tablet RxNorm: 748798 1 Tablet(s) PO Q AM prn edema--take with potassium 12/11/2017 06/08/2018 Inactive cyclobenzaprine 10 mg tablet RxNorm: 302714 1 Tablet(s) PO TID as needed for muscle spasm 12/11/2017 03/18/2018 Inactive hydrocodone 10 mg-acetaminophen 325 mg tablet RxNorm: 929251 1-2 Tablet(s) QID as needed for pain MUST LAST 30 DAYS 10/23/2017 11/21/2017 Inactive (Response to an electronic controlled substance refill request - RxReferenceNumber: [id number]) Lipitor 10 mg tablet RxNorm: 709218 1 Tablet(s) PO QHS 10/16/201703/2018 Inactive cyclobenzaprine 10 mg tablet RxNorm: 985107 1 Tablet(s) PO TID as needed for muscle spasm 10/09/2017 12/10/2017 Inactive hydroxyzine HCl 25 mg tablet RxNorm: 199869 1 Tablet(s) PO BID as needed for anxiety 09/20/2017 01/29/2018 Inactive Effexor XR 75 mg capsule,extended release RxNorm: 070126 1 Caps ule(s) PO QD 09/20/2017 01/29/2018 Inactive metoprolol tartrate 100 mg tablet RxNorm: 755848 1 Tablet(s) PO BID 08/20/2017 02/18/2018 Inactive baclofen 20 mg tablet RxNorm: 233722 1 Tablet(s) PO TID as needed for muscle spasm 08/20/2017 01/21/2019 Inactive clonidine HCl 0.1 mg tablet RxNorm: 218172 1 Tablet(s) PO QID 08/2005/16/2018 Inactive Seroquel 25 mg tablet RxNorm: 889799 1 Tablet(s) PO QHS 08/17/2017 Inactive Seroquel 25 mg tablet RxNorm: 334224 1 Tablet(s) PO QHS 08/17/2017 Inactive Diflucan 100 mg tablet RxNorm: 590532 TAKE ONE TABLET BY MOUTH JOSÉ Y 07/25/2017 08/07/2017 Inactive hydrocodone 10 mg-acetaminophen 325 mg tablet RxNorm: 091535 1-2 Tablet(s) QID as needed for pain MUST LAST 30 DAYS 07/19/2017 08/17/2017 Inactive (Response to an electronic controlled substance refill request - RxReferenceNumber: [id number]) clindamycin 300 mg capsule RxNorm: 906780 1 Capsule(s) PO TID 07/1907/28/2017 Inactive clotrimazole-betamethasone 1 %-0.05 % topical cream RxNorm: 621296 Application TOP BID to elbow rash 07/19/2017 06/16/2018 Inactive Singulair 10 mg tablet RxNorm: 932801 Tablet(s) TAKE ONE TABLET BY MOUTH DAILY 07/18/2017 04/13/2018 Inactive triamterene 75 mg-hydrochlorothiazide 50 mg tablet RxNorm: 3 82931 1 Tablet(s) PO QD 07/18/2017 01/14/2018 Inactive Celebrex 200 mg capsule RxNorm: 882664 Capsule(s) TAKE ONE CAPSULE BY MOUTH TWICE A DAY 07/18/2017 10/15/2017 Inactive hydrocodone 10 mg-acetaminophen 325 mg tablet RxNorm: 660897 1-2 Tablet(s) QID as needed for pain MUST LAST 30 DAYS 06/19/2017 07/18/2017 Inactive (Response to an electronic controlled substance refill request - RxReferenceNumber: [id number]) hydrocodone 10 mg-acetaminophen 325 mg tablet RxNorm: 283708 1-2 Tablet(s) QID as needed for pain MUST LAST 30 DAYS 06/19/2017 06/18/2017 Inactive (Response to an electronic controlled substance refill request - RxReferenceNumber: [id number]) baclofen 20 mg tablet RxNorm: 783605 1 Tablet(s) PO TID as needed for muscle spasm 06/18/2017 08/20/2017 Inactive Medrol (Dustin) 4 mg tablets in a dose pack RxNorm: 498360 Tablet(s) PO As Directed 06/05/2017 07/18/2017 Inactive omeprazole 40 mg capsule,delayed release RxNorm: 734794 1 Capsu le(s) PO QD 04/20/2017 10/16/2017 Inactive Premarin 1.25 mg tablet RxNorm: 839843 1-2 Tablet(s) PO QD 04/11/20 17 05/15/2018 Inactive duloxetine 60 mg capsule,delayed release RxNorm: 323502 1 Capsu le(s) PO QD 04/11/2017 09/19/2017 Inactive furosemide 40 mg tablet RxNorm: 975475 1 Tablet(s) PO Q AM prn edema--take with potassium 04/11/2017 12/11/2017 Inactive Klor-Con 8 mEq tablet,extended release RxNorm: 869092 1 Tablet( s) PO BID 04/11/2017 01/14/2018 Inactive Lipitor 10 mg tablet RxNorm: 754042 1 Tablet(s) PO QHS 04/11/201702/2018 Inactive amlodipine 5 mg-benazepril 20 mg capsule RxNorm: 233302 1 Capsu le(s) PO QD 04/11/2017 01/29/2018 Inactive allopurinol 300 mg tablet RxNorm: 259482 1 Tablet(s) PO QD 04/11/20 17 01/14/2018 Inactive clonidine HCl 0.1 mg tablet RxNorm: 781896 1 Tablet(s) PO QID 04/0508/19/2017 Inactive baclofen 20 mg tablet RxNorm: 572315 1 Tablet(s) PO TID as needed for muscle spasm 04/02/2017 06/18/2017 Inactive Premarin 1.25 mg tablet RxNorm: 568173 1-2 Tablet(s) PO QD 03/20/20 17 04/10/2017 Inactive hydrocodone 10 mg-acetaminophen 325 mg tablet RxNorm: 652875 1-2 Tablet(s) QID as needed for pain MUST LAST 30 DAYS 03/14/2017 01/21/2019 Inactive (Response to an electronic controlled substance refill request - RxReferenceNumber: [id number]) metoprolol tartrate 100 mg tablet RxNorm: 350287 1 Tablet(s) PO BID 02/12/2017 08/20/2017 Inactive hydrocodone 10 mg-acetaminophen 325 mg tablet RxNorm: 485069 1-2 Tablet(s) QID as needed for pain MUST LAST 30 DAYS 02/08/2017 03/09/2017 Inactive (Response to an electronic controlled substance refill request - RxReferenceNumber: [id number]) metoprolol tartrate 100 mg tablet RxNorm: 901440 TAKE O NE TABLET BY MOUTH TWICE A DAY 01/11/2017 02/12/2017 Inactive metoprolol tartrate 100 mg tablet RxNorm: 303461 1 Tablet(s) PO BID 12/18/2016 12/17/2016 Inactive metoprolol tartrate 100 mg tablet RxNorm: 959103 1 Tablet(s) PO BID 12/18/2016 01/10/2017 Inactive furosemide 40 mg tablet RxNorm: 252898 1 Tablet(s) PO Q AM prn edema--take with potassium 12/13/2016 02/10/2017 Inactive amitriptyline 100 mg tablet RxNorm: 033160 1 Tablet(s) PO QHS 11/2812/12/2016 Inactive baclofen 20 mg tablet RxNorm: 525034 1 Tablet(s) PO TID as needed for muscle spasm 11/14/2016 04/01/2017 Inactive triamterene 75 mg-hydrochlorothiazide 50 mg tablet RxNorm: 3 41182 1 Tablet(s) PO QD 11/14/2016 11/13/2016 Inactive metolazone 2.5 mg tablet RxNorm: 157218 TAKE ONE TABLET BY MOUTH DAILY NEEDED FOR EDEMA 11/14/2016 12/12/2016 Inactive triamterene 75 mg-hydrochlorothiazide 50 mg tablet RxNorm: 3 52049 1 Tablet(s) PO QD 11/14/2016 07/18/2017 Inactive amitriptyline 50 mg tablet RxNorm: 530482 TAKE ONE TABL ET BY MOUTH AT BEDTIME NEEDED FOR SLEEP 11/14/2016 11/27/2016 Inactive Cymbalta 60 mg capsule,delayed release RxNorm: 235272 1 Capsule (s) PO QHS 11/14/2016 12/12/2016 Inactive clonidine HCl 0.1 mg tablet RxNorm: 160566 1 Tablet(s) PO QID 11/1304/04/2017 Inactive amitriptyline 50 mg tablet RxNorm: 395646 1 Tablet(s) P O QHS as needed for sleep 11/01/2016 11/27/2016 Inactive duloxetine 60 mg capsule,delayed release RxNorm: 337391 TAKE ONE CAPSULE BY MOUTH DAILY 10/20/2016 01/17/2017 Inactive allopurinol 300 mg tablet RxNorm: 991314 TAKE ONE TABLET BY LOPEZ TH DAILY 10/20/2016 01/16/2017 Inactive Lyrica 75 mg capsule RxNorm: 961292 TAKE ONE CAPSULE BY MOUTH EVERY NIGHT AT BEDTIME 10/20/2016 12/10/2016 Inactive Klor-Con 8 mEq tablet,extended release RxNorm: 341699 T FARRUKH ONE TABLET BY MOUTH TWICE A DAY 10/20/2016 01/17/2017 Inactive Celebrex 200 mg capsule RxNorm: 683220 TAKE ONE CAPSULE BY MOUT H TWICE A DAY 10/20/2016 07/18/2017 Inactive Bystolic 10 mg tablet RxNorm: 935067 TAKE ONE TABLET BY MOUTH EVERY NIGHT AT BEDTIME 10/20/2016 12/17/2016 Inactive amlodipine 5 mg-benazepril 20 mg capsule RxNorm: 131635 TAKE ONE CAPSULE BY MOUTH EVERY NIGHT AT BEDTIME -- TO REPLACE AMLODOPINE 10/20/20162016 Inactive Lipitor 10 mg tablet RxNorm: 183373 TAKE ONE TABLET BY MOUTH EVERY NIGHT AT BEDTIME 10/20/2016 01/17/2017 Inactive alprazolam 0.5 mg tablet RxNorm: 345856 3 Tablet(s) PO QHS as needed for sleep/anxiety 09/20/2016 10/31/2016 Inactive Tamiflu 75 mg capsule RxNorm: 918591 1 Capsule(s) PO QD 09/19/2016 Inactive Lyrica 75 mg capsule RxNorm: 249960 1 Capsule(s) PO QHS 09/19/2016 Inactive prednisone 20 mg tablet RxNorm: 756163 1 Tablet(s) PO QD 08/10/2016 1 10/17/2015 Inactive doxycycline hyclate 100 mg capsule RxNorm: 4784162 1 Capsule(s) PO BID 08/10/2016 08/19/2016 Inactive Medrol (Dustin) 4 mg tablets in a dose pack RxNorm: 752780 Tablet(s) PO As Directed 07/31/2016 08/22/2016 Inactive Singulair 10 mg tablet RxNorm: 606621 TAKE ONE TABLET BY MOUTH JOSÉ Y 07/27/2016 07/18/2017 Inactive hydrocodone 10 mg-acetaminophen 325 mg tablet RxNorm: 507882 1-2 Tablet(s) QID as needed for pain MUST LAST 30 DAYS 07/26/2016 08/24/2016 Inactive (Response to an electronic controlled substance refill request - RxReferenceNumber: [id number]) alprazolam 0.5 mg tablet RxNorm: 785788 3 Tablet(s) PO QHS as needed for anxiety or sleep 07/26/2016 09/20/2016 Inactive clindamycin 300 mg capsule RxNorm: 160331 1 Capsule(s) PO TID 07/2007/29/2016 Inactive Diflucan 100 mg tablet RxNorm: 632875 1 Tablet(s) PO QD 07/20/2016 Inactive Levaquin 500 mg tablet RxNorm: 902861 1 Tablet(s) PO QD 07/17/2016 Inactive Levaquin 500 mg tablet RxNorm: 222198 1 Tablet(s) PO QD 07/10/2016 Inactive Levaquin 500 mg tablet RxNorm: 710232 1 Tablet(s) PO QD 07/10/2016 Inactive mupirocin 2 % topical ointment RxNorm: 508596 TOP Apply topically to affected areas twice daily 07/06/2016 09/18/2016 Inactive Singulair 10 mg tablet RxNorm: 389304 TAKE ONE TABLET BY MOUTH JOSÉ Y 06/21/2016 01/21/2019 Inactive alprazolam 0.5 mg tablet RxNorm: 524845 TAKE THREE TABL ETS BY MOUTH AT BEDTIME NEEDED FOR SLEEP OR STRESS 05/22/2016 06/20/2016 Inactive triamterene 75 mg-hydrochlorothiazide 50 mg tablet RxNorm: 3 42580 1 Tablet(s) PO QD 04/26/2016 01/12/2020 Inactive Premarin 1.25 mg tablet RxNorm: 377810 1-2 Tablet(s) PO QD 04/26/20 16 03/20/2017 Inactive Klor-Con 8 mEq tablet,extended release RxNorm: 263462 1 Tablet( s) PO BID 04/26/2016 10/19/2016 Inactive Celebrex 200 mg capsule RxNorm: 163459 1 Capsule(s) PO BID TAKE ONE CAPSULE BY MOUTH EVERY DAY 04/26/2016 10/19/2016 Inactive Lipitor 10 mg tablet RxNorm: 005663 1 Tablet(s) PO QHS 04/26/201605/2017 Inactive allopurinol 300 mg tablet RxNorm: 114723 1 Tablet(s) PO QD TAKE ONE TABLET BY MOUTH EVERY DAY 04/26/2016 10/19/2016 Inactive amlodipine 5 mg-benazepril 20 mg capsule RxNorm: 144521 1 Capsule(s) PO QHS replaces amlodopine 04/26/2016 10/19/2016 Inactive duloxetine 60 mg capsule,delayed release RxNorm: 155057 1 Capsu le(s) PO QD 04/26/2016 10/19/2016 Inactive Bystolic 10 mg tablet RxNorm: 326689 1 Tablet(s) PO QHS 04/26/2016 Inactive Singulair 10 mg tablet RxNorm: 293360 1 Tablet(s) PO QD TAKE ONE TABLET BY MOUTH DAILY 04/26/2016 06/20/2016 Inactive clonidine HCl 0.1 mg tablet RxNorm: 668939 1 Tablet(s) PO QID 04/2610/22/2016 Inactive hydrocodone 10 mg-acetaminophen 325 mg tablet RxNorm: 839321 1-2 Tablet(s) QID as needed for pain TAKE ONE TO TWO TABLETS BY MOUTH FOUR TIMES A DAY . MUST LAST 30 DAYS 03/31/2016 04/29/2016 Inactive (Response to an electronic controlled substance refill request - RxReferenceNumber: [id number]) Klor-Con 8 mEq tablet,extended release RxNorm: 523903 T FARRUKH ONE TABLET BY MOUTH TWICE A DAY 03/24/2016 09/29/2019 Inactive prednisone 20 mg tablet RxNorm: 222135 1 Tablet(s) PO QD 03/09/2016 0 03/08/2016 Inactive prednisone 20 mg tablet RxNorm: 458460 1 Tablet(s) PO QD 03/09/2016 0 03/13/2016 Inactive alprazolam 0.5 mg tablet RxNorm: 246286 3 Tablet(s) PO QHS as needed for sleep/stress 03/02/2016 01/21/2019 Inactive mupirocin 2 % topical ointment RxNorm: 799687 TOP twice daily to affected areas of face and neck 02/21/2016 04/25/2016 Inactive clonidine HCl 0.1 mg tablet RxNorm: 207046 TAKE ONE TAB LET BY MOUTH FOUR TIMES A DAY 02/15/2016 09/29/2019 Inactive clonidine HCl 0.1 mg tablet RxNorm: 443830 1 Tablet(s) PO QID 02/1404/25/2016 Inactive Premarin 1.25 mg tablet RxNorm: 746177 1-2 Tablet(s) PO QD 02/15/20 16 03/15/2016 Inactive Klor-Con 8 mEq tablet,extended release RxNorm: 146544 T FARRUKH ONE TABLET BY MOUTH TWICE A DAY 02/15/2016 03/15/2016 Inactive potassium chloride ER 20 mEq tablet,extended release(part/cr yst) RxNorm: 943911 2 Tablet(s) PO BID 02/15/2016 03/15/2016 Inactive Macrobid 100 mg capsule RxNorm: 431971 1 Capsule(s) PO BID 01/24/20 16 01/30/2016 Inactive prednisone 20 mg tablet RxNorm: 531549 Take 3tabs PO QD x 2 days, then 2 tabs PO QD x 2 days, then 1 tab PO QD x 2 days, then 1/2 tab PO QDy x 2 days 12/23/2015 04/25/2016 Inactive Klor-Con 8 mEq tablet,extended release RxNorm: 382940 T FARRUKH ONE TABLET BY MOUTH TWICE A DAY 12/20/2015 02/14/2016 Inactive alprazolam 1 mg tablet RxNorm: 103783 1 1/2 Tablet(s) PO QHS 201501/23/2016 Inactive nystatin 100,000 unit/gram topical cream RxNorm: 146735 APPLY TO AFFECTED AREA(S) TWO TIMES A DAY 11/30/2015 12/14/2015 Inactive Singulair 10 mg tablet RxNorm: 279984 TAKE ONE TABLET BY MOUTH JOSÉ Y 11/18/2015 04/25/2016 Inactive allopurinol 300 mg tablet RxNorm: 507798 1 Tablet(s) PO QD TAKE ONE TABLET BY MOUTH EVERY DAY 10/26/2015 04/22/2016 Inactive Singulair 10 mg tablet RxNorm: 639866 TAKE ONE TABLET BY MOUTH JOSÉ Y 10/26/2015 11/17/2015 Inactive duloxetine 60 mg capsule,delayed release RxNorm: 890700 1 Capsu le(s) PO QD 10/26/2015 04/22/2016 Inactive triamterene 75 mg-hydrochlorothiazide 50 mg tablet RxNorm: 3 89570 1 Tablet(s) PO QD 10/26/2015 11/14/2016 Inactive potassium chloride ER 20 mEq tablet,extended release(part/cr yst) RxNorm: 577946 2 Tablet(s) PO BID 10/26/2015 02/14/2016 Inactive Lipitor 10 mg tablet RxNorm: 558616 1 Tablet(s) PO QHS 10/26/2015 Inactive amlodipine 5 mg-benazepril 20 mg capsule RxNorm: 146655 1 Capsule(s) PO QHS replaces amlodopine 10/26/2015 04/22/2016 Inactive Bystolic 10 mg tablet RxNorm: 874244 1 Tablet(s) PO QHS 10/26/2015 Inactive amlodipine 5 mg-benazepril 20 mg capsule RxNorm: 377034 1 Capsule(s) PO QHS replaces amlodopine 10/06/2015 10/25/2015 Inactive amlodipine 5 mg tablet RxNorm: 519634 1 Tablet(s) PO QHS 09/30/2015 0 04/25/2016 Inactive metolazone 2.5 mg tablet RxNorm: 100942 TAKE ONE TABLET BY MOUTH DAILY NEEDED FOR EDEMA 09/30/2015 01/21/2019 Inactive duloxetine 60 mg capsule,delayed release RxNorm: 814277 1 Capsu le(s) PO QD 09/30/2015 10/25/2015 Inactive cephalexin 500 mg capsule RxNorm: 385244 1 Capsule(s) PO BID 201509/23/2015 Inactive mupirocin 2 % topical ointment RxNorm: 520352 TOP twice daily to affected areas of face and neck 09/14/2015 02/20/2016 Inactive baclofen 20 mg tablet RxNorm: 077351 1 Tablet(s) PO TID as needed for muscle spasm 09/01/2015 11/14/2016 Inactive clonidine HCl 0.1 mg tablet RxNorm: 426838 1 Tablet(s) PO QID 09/0102/14/2016 Inactive alprazolam 1 mg tablet RxNorm: 893723 1 1/2 Tablet(s) PO QHS 201409/09/2015 Inactive baclofen 20 mg tablet RxNorm: 229971 1 Tablet(s) PO TID as needed for muscle spasm 07/23/2015 09/01/2015 Inactive omeprazole 40 mg capsule,delayed release RxNorm: 410741 1 Capsu le(s) PO QD 07/23/2015 04/25/2016 Inactive alprazolam 1 mg tablet RxNorm: 541829 1 1/2 Tablet(s) PO QHS 201408/10/2015 Inactive Bystolic 10 mg tablet RxNorm: 962828 1 Tablet(s) PO BID 06/24/2015 Inactive allopurinol 300 mg tablet RxNorm: 912987 1 Tablet(s) PO QD TAKE ONE TABLET BY MOUTH EVERY DAY 06/23/2015 10/20/2015 Inactive alprazolam 1 mg tablet RxNorm: 999973 1 1/2 Tablet(s) PO QHS 201407/06/2015 Inactive clonidine HCl 0.1 mg tablet RxNorm: 473828 1 Tablet(s) PO QID 06/0209/01/2015 Inactive clonidine HCl 0.1 mg tablet RxNorm: 142315 1 Tablet(s) PO QID 06/0206/01/2015 Inactive Cymbalta 60 mg capsule,delayed release RxNorm: 196811 1 Capsule (s) PO QHS 06/02/2015 08/30/2015 Inactive Cymbalta 60 mg capsule,delayed release RxNorm: 178959 1 Capsule (s) PO QHS 06/02/2015 06/01/2015 Inactive clonidine HCl 0.1 mg tablet RxNorm: 311206 1 Tablet(s) PO TID 05/3106/01/2015 Inactive replaces 0.2mg dose metolazone 2.5 mg tablet RxNorm: 079110 TAKE ONE TABLET BY MOUTH DAILY NEEDED FOR EDEMA 05/21/2015 06/19/2015 Inactive Singulair 10 mg tablet RxNorm: 548261 TAKE ONE TABLET BY MOUTH JOSÉ Y 05/21/2015 10/17/2015 Inactive Cymbalta 30 mg capsule,delayed release RxNorm: 947407 1 Capsule (s) PO QHS 05/20/2015 11/14/2016 Inactive betamethasone valerate 0.1 % topical cream RxNorm: 347115 Appli cation TOP BID 05/10/2015 04/25/2016 Inactive Bactroban 2 % topical ointment RxNorm: 829810 Application TOP BID 0 05/10/2015 06/20/2015 Inactive baclofen 20 mg tablet RxNorm: 356993 1 Tablet(s) PO TID as needed 0 04/26/2015 07/23/2015 Inactive Lipitor 10 mg tablet RxNorm: 719855 1 Tablet(s) PO QHS 04/26/201508/2016 Inactive clonidine HCl 0.1 mg tablet RxNorm: 285933 1 Tablet(s) PO TID 04/2605/30/2015 Inactive replaces 0.2mg dose Klor-Con 8 mEq tablet,extended release RxNorm: 326192 1 Tablet( s) PO BID 04/26/2015 04/25/2016 Inactive metolazone 2.5 mg tablet RxNorm: 619384 1 Tablet(s) PO QD as ne eded for edema 04/26/2015 04/25/2015 Inactive triamterene 75 mg-hydrochlorothiazide 50 mg tablet RxNorm: 3 43622 1 Tablet(s) PO QD 04/26/2015 10/22/2015 Inactive Premarin 1.25 mg tablet RxNorm: 369011 1-2 Tablet(s) PO QD 04/26/20 15 10/22/2015 Inactive Bystolic 10 mg tablet RxNorm: 094541 1 Tablet(s) PO QAM TAKE ONE TABLET BY MOUTH EVERY MORNING 04/23/2015 06/23/2015 Inactive clonidine HCl 0.1 mg tablet RxNorm: 323870 1 Tablet(s) PO TID 03/2304/25/2015 Inactive replaces 0.2mg dose nystatin 100,000 unit/gram topical cream RxNorm: 963317 Applica tion TOP BID 03/23/2015 06/20/2015 Inactive baclofen 20 mg tablet RxNorm: 466011 1 Tablet(s) PO TID as needed 0 03/23/2015 04/25/2015 Inactive Premarin 1.25 mg tablet RxNorm: 742058 1-2 Tablet(s) PO QD 03/23/20 15 04/25/2015 Inactive Klor-Con 8 mEq tablet,extended release RxNorm: 947829 1 Tablet( s) PO BID 03/23/2015 04/25/2015 Inactive cefdinir 300 mg capsule RxNorm: 063399 2 Capsule(s) PO QD 03/16/2015 03/25/2015 Inactive baclofen 20 mg tablet RxNorm: 157412 1 Tablet(s) PO TID as needed 0 03/02/2015 03/22/2015 Inactive allopurinol 300 mg tablet RxNorm: 448914 1 Tablet(s) PO QD TAKE ONE TABLET BY MOUTH EVERY DAY 02/22/2015 05/22/2015 Inactive Klor-Con M20 mEq tablet,extended release RxNorm: 319101 2 Tablet(s) PO BID to use with lasix 02/22/2015 06/20/2015 Inactive clonidine HCl 0.1 mg tablet RxNorm: 713810 1 Tablet(s) PO TID 02/1903/22/2015 Inactive replaces 0.2mg dose Lipitor 10 mg tablet RxNorm: 324390 1 Tablet(s) PO QHS 01/20/201506/2015 Inactive Lipitor 10 mg tablet RxNorm: 787543 1 Tablet(s) PO QHS 01/20/2015 Inactive Singulair 10 mg tablet RxNorm: 233950 1 Tablet(s) PO QD TAKE ONE TABLET BY MOUTH EVERY DAY 11/20/2014 05/18/2015 Inactive Lipitor 10 mg tablet RxNorm: 313050 1 Tablet(s) PO QHS 11/20/201408/2015 Inactive allopurinol 300 mg tablet RxNorm: 453336 1 Tablet(s) PO QD TAKE ONE TABLET BY MOUTH EVERY DAY 11/20/2014 02/16/2015 Inactive Bystolic 10 mg tablet RxNorm: 018336 1 Tablet(s) PO QAM TAKE ONE TABLET BY MOUTH EVERY MORNING 11/20/2014 04/22/2015 Inactive Klor-Con 8 mEq tablet,extended release RxNorm: 292715 1 Tablet( s) PO BID 11/20/2014 02/17/2015 Inactive baclofen 20 mg tablet RxNorm: 607331 1 Tablet(s) PO TID as needed 0 11/20/2014 01/21/2019 Inactive baclofen 20 mg tablet RxNorm: 702709 1 Tablet(s) PO TID as needed 0 10/27/2014 11/19/2014 Inactive baclofen 20 mg tablet RxNorm: 215239 1 Tablet(s) PO TID as needed 0 10/26/2014 03/01/2015 Inactive allopurinol 300 mg tablet RxNorm: 238432 1 Tablet(s) PO QD TAKE ONE TABLET BY MOUTH EVERY DAY 10/26/2014 11/20/2014 Inactive Bystolic 10 mg tablet RxNorm: 364300 1 Tablet(s) PO QAM TAKE ONE TABLET BY MOUTH EVERY MORNING 10/26/2014 11/20/2014 Inactive clonidine HCl 0.1 mg tablet RxNorm: 980085 1 Tablet(s) PO TID 09/2805/27/2019 Inactive replaces 0.2mg dose clonidine HCl 0.1 mg tablet RxNorm: 704493 1 Tablet(s) PO TID 09/2802/18/2015 Inactive replaces 0.2mg dose baclofen 20 mg tablet RxNorm: 463697 1 Tablet(s) PO TID as needed 1 11/01/2013 08/30/2014 Inactive Lipitor 10 mg tablet RxNorm: 367074 1 Tablet(s) PO QHS 08/31/2014 Inactive baclofen 20 mg tablet RxNorm: 414895 1 Tablet(s) PO TID as needed 1 11/01/2013 10/26/2014 Inactive triamterene 75 mg-hydrochlorothiazide 50 mg tablet RxNorm: 3 84373 1 Tablet(s) PO QD 08/31/2014 02/26/2015 Inactive Klor-Con 8 mEq tablet,extended release RxNorm: 179078 1 Tablet( s) PO BID 08/31/2014 11/20/2014 Inactive baclofen 20 mg tablet RxNorm: 078651 1 Tablet(s) PO TID as needed 1 09/30/2013 10/25/2014 Inactive baclofen 20 mg tablet RxNorm: 065815 1 Tablet(s) PO TID as needed 1 09/30/2013 08/31/2014 Inactive omeprazole 40 mg capsule,delayed release RxNorm: 483066 1 Capsu le(s) PO QD 07/21/2014 07/23/2015 Inactive Flonase 50 mcg/actuation nasal spray,suspension RxNorm: 8963 23 1 [place] NASAL BID 07/15/2014 04/09/2017 Inactive hydrocodone 10 mg-acetaminophen 325 mg tablet RxNorm: 793645 1-2 Tablet(s) QID as needed for pain TAKE ONE TO TWO TABLETS BY MOUTH FOUR TIMES A DAY . MUST LAST 30 DAYS 06/30/2014 07/27/2014 Inactive (Response to an electronic controlled substance refill request - RxReferenceNumber: [id number]) baclofen 20 mg tablet RxNorm: 992956 1 Tablet(s) PO TID as needed 1 07/31/2014 Inactive Singulair 10 mg tablet RxNorm: 242234 1 Tablet(s) PO QD TAKE ONE TABLET BY MOUTH EVERY DAY 05/25/2014 11/20/2014 Inactive Bystolic 10 mg tablet RxNorm: 097652 TAKE ONE TABLET BY MOUTH E VERY MORNING 05/25/2014 09/21/2014 Inactive allopurinol 300 mg tablet RxNorm: 216920 1 Tablet(s) PO QD TAKE ONE TABLET BY MOUTH EVERY DAY 05/25/2014 10/21/2014 Inactive baclofen 20 mg tablet RxNorm: 221163 1 Tablet(s) PO TID as needed 0 05/25/2014 06/29/2014 Inactive allopurinol 300 mg tablet RxNorm: 842459 TAKE ONE TABLET BY LOPEZ TH EVERY DAY 05/25/2014 09/21/2014 Inactive Singulair 10 mg tablet RxNorm: 156728 1 Tablet(s) PO QD TAKE ONE TABLET BY MOUTH EVERY DAY 05/25/2014 05/24/2014 Inactive Bystolic 10 mg tablet RxNorm: 128280 1 Tablet(s) PO QAM TAKE ONE TABLET BY MOUTH EVERY MORNING 05/25/2014 10/21/2014 Inactive metolazone 2.5 mg tablet RxNorm: 199431 1 Tablet(s) PO QD as ne eded for edema 05/18/2014 04/25/2015 Inactive Lasix 40 mg tablet RxNorm: 677223 1 Tablet(s) PO QAM s hould take potassium supplementation with this medication 05/14/2014 05/17/2014 Inactive hydrocodone 10 mg-acetaminophen 325 mg tablet RxNorm: 836795 1-2 Tablet(s) QID as needed for pain TAKE ONE TO TWO TABLETS BY MOUTH FOUR TIMES A DAY . MUST LAST 30 DAYS 05/07/2014 06/05/2014 Inactive (Response to an electronic controlled substance refill request - RxReferenceNumber: [id number]) alprazolam 0.5 mg tablet RxNorm: 054697 TAKE ONE TABLET BY MOUTH TWICE A DAY , MUST LAST 30 DAYS 05/07/2014 05/22/2016 Inactive (Response to a n electronic controlled substance refill request - RxReferenceNumber: [id number]) diclofenac sodium 75 mg tablet,delayed release RxNorm: 00259 6 1 Tablet(s) PO BID for pain 04/24/2014 07/20/2014 Inactive Celebrex 200 mg capsule RxNorm: 622027 TAKE ONE CAPSULE BY MOUT H EVERY DAY 04/24/2014 07/20/2014 Inactive alprazolam 0.5 mg tablet RxNorm: 048207 TAKE ONE TABLET BY MOUTH TWICE A DAY , MUST LAST 30 DAYS 03/24/2014 04/22/2014 Inactive (Response to a n electronic controlled substance refill request - RxReferenceNumber: [id number]) diclofenac sodium 75 mg tablet,delayed release RxNorm: 85518 6 1 Tablet(s) PO BID for pain 03/24/2014 04/24/2014 Inactive clonidine HCl 0.1 mg tablet RxNorm: 475315 1 Tablet(s) PO TID 03/2409/28/2014 Inactive replaces 0.2mg dose Klor-Con 8 mEq tablet,extended release RxNorm: 517375 1 Tablet( s) PO BID 02/26/2014 08/31/2014 Inactive diclofenac sodium 75 mg tablet,delayed release RxNorm: 01840 6 1 Tablet(s) PO BID for pain 02/25/2014 03/24/2014 Inactive hydrocodone 10 mg-acetaminophen 325 mg tablet RxNorm: 226320 1-2 Tablet(s) QID as needed for pain TAKE ONE TO TWO TABLETS BY MOUTH FOUR TIMES A DAY . MUST LAST 30 DAYS 02/25/2014 03/26/2014 Inactive (Response to an electronic controlled substance refill request - RxReferenceNumber: [id number]) alprazolam 0.5 mg tablet RxNorm: 119801 Tablet(s) PO BI D as needed for anxiety TAKE ONE TABLET BY MOUTH TWICE A DAY , MUST LAST 30 DAYS 02/25/2014 Inactive (Response to an electronic controlled [place] bstance refill request - RxReferenceNumber: [id number]) [AttnRPh: Saving apply/adjudicate RxGRP:SG20 RxBIN:[id number] RxPCN: ID#:[id number]] alprazolam 0.5 mg tablet RxNorm: 541286 Tablet(s) TAKE ONE TABLET BY MOUTH TWICE A DAY , MUST LAST 30 DAYS 01/27/2014 02/24/2014 Inactive (Respo nse to an electronic controlled substance refill request - RxReferenceNumber: [id number]) [AttnRPh: Saving apply/adjudicate RxGRP:SG20 RxBIN:[id number] RxPCN: ID#:[id number]] hydrocodone 10 mg-acetaminophen 325 mg tablet RxNorm: 320661 1-2 Tablet(s) QID as needed for pain TAKE ONE TO TWO TABLETS BY MOUTH FOUR TIMES A DAY . MUST LAST 30 DAYS 01/27/2014 02/24/2014 Inactive (Response to an electronic controlled substance refill request - RxReferenceNumber: [id number]) alprazolam 0.5 mg tablet RxNorm: 611038 TAKE ONE TABLET BY MOUTH TWICE A DAY , MUST LAST 30 DAYS 01/27/2014 01/26/2014 Inactive (Response to a n electronic controlled substance refill request - RxReferenceNumber: [id number]) Premarin 1.25 mg tablet RxNorm: 899006 1-2 Tablet(s) PO QD 01/28/20 14 07/25/2014 Inactive alprazolam 0.5 mg tablet RxNorm: 324437 TAKE ONE TABLET BY MOUTH TWICE A DAY , MUST LAST 30 DAYS 01/27/2014 01/27/2014 Inactive (Response to a n electronic controlled substance refill request - RxReferenceNumber: [id number]) hydrocodone 10 mg-acetaminophen 325 mg tablet RxNorm: 492266 TAKE ONE TO TWO TABLETS BY MOUTH FOUR TIMES A DAY . MUST LAST 30 DAYS 01/27/20142013 Inactive (Response to an electronic controlled [place] bstance refill request - RxReferenceNumber: [id number]) Celebrex 200 mg capsule RxNorm: 501740 1 Capsule(s) PO QD TAKE ONE CAPSULE BY MOUTH EVERY DAY 12/29/2013 04/27/2014 Inactive hydrocodone 10 mg-acetaminophen 325 mg tablet RxNorm: 644552 1-2 Tablet(s) PO QID as needed for severe pain 12/29/2013 01/27/2014 Inactive allopurinol 300 mg tablet RxNorm: 251062 1 Tablet(s) PO QD TAKE ONE TABLET BY MOUTH EVERY DAY 12/29/2013 05/24/2014 Inactive alprazolam 0.5 mg tablet RxNorm: 703758 TAKE ONE TABLET BY MOUTH TWICE A DAY , MUST LAST 30 DAYS 12/29/2013 01/27/2014 Inactive (Response to a n electronic controlled substance refill request - RxReferenceNumber: [id number]) Celebrex 200 mg capsule RxNorm: 833911 1 Capsule(s) PO QD TAKE ONE CAPSULE BY MOUTH EVERY DAY 12/29/2013 12/29/2013 Inactive Bystolic 10 mg tablet RxNorm: 545692 1 Tablet(s) PO QAM TAKE ONE TABLET BY MOUTH EVERY MORNING 12/29/2013 05/24/2014 Inactive Bystolic 10 mg tablet RxNorm: 391735 1 Tablet(s) PO QAM TAKE ONE TABLET BY MOUTH EVERY MORNING 12/29/2013 12/29/2013 Inactive Singulair 10 mg tablet RxNorm: 093229 1 Tablet(s) PO QD TAKE ONE TABLET BY MOUTH EVERY DAY 12/29/2013 05/25/2014 Inactive hydrocodone 10 mg-acetaminophen 325 mg tablet RxNorm: 869516 TAKE ONE TO TWO TABLETS BY MOUTH FOUR TIMES A DAY . MUST LAST 30 DAYS 12/29/20132013 Inactive (Response to an electronic controlled cornell bstance refill request - RxReferenceNumber: [id number]) Trazadone 75mg Tablet RxNorm: 1 Tablet(s) PO QHS as needed 03/23/2014 Inactive Trazadone 75mg Tablet RxNorm: 1 Tablet(s) PO QHS 12/24/20132014 Inactive Soma 350 mg tablet RxNorm: 921229 Tablet(s) PO TAKE ON E TABLET BY MOUTH THREE TIMES A DAY NEEDED FOR MUSCLE SPASMS. THIS MUST LAST 30 DAYS BETWEEN REFILLS. 12/10/2013 12/22/2013 Inactive (Appended: Cont rolled substance eRx refill - RxReferenceNumber: [id number]) diclofenac sodium 75 mg tablet,delayed release RxNorm: 45462 6 1 Tablet(s) PO BID for pain 12/10/2013 02/24/2014 Inactive allopurinol 300 mg tablet RxNorm: 775317 1 Tablet(s) PO QD 11/20/19 14 12/29/2013 Inactive alprazolam 0.5 mg tablet RxNorm: 160102 2 Tablet(s) PO BID 11/13/19 14 12/29/2013 Inactive prn clonidine 0.1 mg tablet RxNorm: 147767 1 Tablet(s) PO TID 11/12/2013 02/09/2014 Inactive replaces 0.2mg dose Klor-Con M20 mEq tablet,extended release RxNorm: 466292 2 Tablet(s) PO BID to use with lasix 11/12/2013 05/10/2014 Inactive Singulair 10 mg tablet RxNorm: 165844 1 Tablet(s) PO QD 11/12/2013 Inactive hydrocodone 10 mg-acetaminophen 325 mg tablet RxNorm: 751271 1-2 Tablet(s) PO QID as needed for severe pain 11/12/2013 12/28/2013 Inactive Bystolic 10 mg tablet RxNorm: 476859 1 Tablet(s) PO QAM 11/12/2013 Inactive Soma 350 mg tablet RxNorm: 810102 Tablet(s) PO TAKE ON E TABLET BY MOUTH THREE TIMES A DAY NEEDED FOR MUSCLE SPASMS. THIS MUST LAST 30 DAYS BETWEEN REFILLS. 10/13/2013 12/10/2013 Inactive (Appended: Cont rolled substance eRx refill - RxReferenceNumber: [id number]) hydrocodone 10 mg-acetaminophen 325 mg tablet RxNorm: 236319 1-2 Tablet(s) PO QID as needed for severe pain 10/03/2013 11/11/2013 Inactive diclofenac sodium 75 mg tablet,delayed release RxNorm: 93016 8 1 Tablet(s) PO BID for pain 09/11/2013 12/10/2013 Inactive alprazolam 0.5 mg tablet RxNorm: 659049 1 Tablet(s) PO BID May refill on 04/26/13 09/01/2013 10/30/2013 Inactive prn hydrocodone 10 mg-acetaminophen 325 mg tablet RxNorm: 618429 1-2 Tablet(s) PO QID as needed for severe pain 09/01/2013 10/02/2013 Inactive triamterene 75 mg-hydrochlorothiazide 50 mg tablet RxNorm: 3 09916 1 Tablet(s) PO QD 08/04/2013 08/31/2014 Inactive cyclobenzaprine 10 mg tablet RxNorm: 640516 1 Tablet(s) PO TID prn spasm 08/04/2013 08/13/2013 Inactive clonidine 0.1 mg tablet RxNorm: 713577 1 Tablet(s) PO TID 08/04/2013 11/11/2013 Inactive replaces 0.2mg dose cyclobenzaprine 10 mg tablet RxNorm: 102203 1 Tablet(s) PO TID prn spasm 07/23/2013 08/01/2013 Inactive hydrocodone 10 mg-acetaminophen 325 mg tablet RxNorm: 650574 2 1-2 Tablet(s) PO QID as needed for severe pain 06/09/2013 08/07/2013 Inactive Singulair 10 mg tablet RxNorm: 696447 1 Tablet(s) PO QD 05/29/2013 Inactive Klor-Con 8 mEq tablet,extended release RxNorm: 940716 1 Tablet( s) PO BID 05/29/2013 02/26/2014 Inactive allopurinol 300 mg tablet RxNorm: 210614 1 Tablet(s) PO QD 05/29/2011/19/2013 Inactive Bystolic 10 mg tablet RxNorm: 087610 1 Tablet(s) PO QAM take one daily in the morning. 05/29/2013 11/11/2013 Inactive scopolamine 1.5 mg 72 hr Transderm Patch RxNorm: 058975 Application TD Q72H for motion sickness 05/26/2013 07/22/2013 Inactive Soma 350 mg tablet RxNorm: 804478 1 Tablet(s) PO TID as needed for spasm 05/19/2013 10/13/2013 Inactive diclofenac sodium 75 mg tablet,delayed release RxNorm: 65366 8 1 Tablet(s) PO BID for pain 05/14/2013 07/22/2013 Inactive allopurinol 300 mg tablet RxNorm: 515557 1 Tablet(s) PO QD 04/25/20 13 05/28/2013 Inactive alprazolam 0.5 mg tablet RxNorm: 040767 1 Tablet(s) PO BID May refill on 04/26/13 04/25/2013 06/23/2013 Inactive prn Celebrex 200 mg capsule RxNorm: 678916 1 Capsule(s) PO QD 04/16/2013 12/29/2013 Inactive alprazolam 0.5 mg tablet RxNorm: 261762 1 Tablet(s) PO BID May refill on 04/26/13 04/16/2013 04/24/2013 Inactive prn Soma 350 mg tablet RxNorm: 724850 1 Tablet(s) PO TID as needed for spasm 04/16/2013 No Stop Date Active Lasix 40 mg tablet RxNorm: 061092 1 Tablet(s) PO QAM alan hould take potassium supplementation with this medication 04/16/2013 06/14/2013 Inactive clonidine 0.1 mg tablet RxNorm: 535804 1 Tablet(s) PO TID 04/16/2013 08/03/2013 Inactive replaces 0.2mg dose prednisone 20 mg tablet RxNorm: 874159 1 Tablet(s) PO BID 04/16/2013 04/20/2013 Inactive diclofenac sodium 75 mg tablet,delayed release RxNorm: 58135 8 1 Tablet(s) PO BID for pain 04/14/2013 05/13/2013 Inactive hydrocodone 10 mg-acetaminophen 325 mg tablet RxNorm: 717385 2 1-2 Tablet(s) PO QID as needed for severe pain 04/14/2013 No Stop Date Active Lasix 40 mg tablet RxNorm: 437930 1 Tablet(s) PO QAM s hould take potassium supplementation with this medication 03/31/2013 04/15/2013 Inactive Celebrex 200 mg capsule RxNorm: 890430 1 Capsule(s) PO QD 03/31/2013 04/15/2013 Inactive alprazolam 0.5 mg tablet RxNorm: 342374 1 Tablet(s) PO BID 03/28/20 13 04/15/2013 Inactive prn hydrocodone 10 mg-acetaminophen 325 mg tablet RxNorm: 537378 2 1-2 Tablet(s) PO QID as needed for severe pain 03/10/2013 No Stop Date Active metformin ER 500 mg 24 hr tablet,extended release RxNorm: 86 1018 1 Tablet(s) PO QD 03/06/2013 07/22/2013 Inactive clindamycin 300 mg capsule RxNorm: 629008 2 Capsule(s) PO TID 03/0503/14/2013 Inactive Zaroxolyn 2.5 mg tablet RxNorm: 877613 1 Tablet(s) PO QAM 03/05/2013 05/19/2015 Inactive amlodipine 10 mg tablet RxNorm: 377107 1 Tablet(s) PO QD 03/03/2013 0 05/25/2013 Inactive Norvasc 10 mg tablet RxNorm: 707391 1 Tablet(s) PO QD 02/28/201307/11 Inactive Celebrex 200 mg capsule RxNorm: 166365 1 Capsule(s) PO QD 02/28/2013 03/30/2013 Inactive diclofenac sodium 75 mg tablet,delayed release RxNorm: 01753 8 1 Tablet(s) PO BID for pain 02/14/2013 03/15/2013 Inactive Soma 350 mg tablet RxNorm: 670814 1 Tablet(s) PO TID as needed for spasm 02/14/2013 No Stop Date Active hydrocodone 10 mg-acetaminophen 325 mg tablet RxNorm: 834545 2 1-2 Tablet(s) PO QID as needed for severe pain 02/14/2013 No Stop Date Active Norvasc 10 mg tablet RxNorm: 209666 1 Tablet(s) PO QD 02/10/201302/09 Inactive Celebrex 200 mg capsule RxNorm: 288307 1 Capsule(s) PO QD 01/27/2013 01/26/2013 Inactive Premarin 1.25 mg tablet RxNorm: 872460 1-2 Tablet(s) PO QD 01/28/20 13 06/25/2013 Inactive alprazolam 0.5 mg tablet RxNorm: 945066 1 Tablet(s) PO BID 01/28/20 13 02/25/2013 Inactive prn amlodipine 5 mg tablet RxNorm: 711746 1 Tablet(s) PO QD 01/27/2013 Inactive Celebrex 200 mg capsule RxNorm: 772484 1 Capsule(s) PO QD 01/27/2013 02/27/2013 Inactive gabapentin 600 mg tablet RxNorm: 830315 1 Tablet(s) PO QHS 01/16/20 13 07/22/2013 Inactive Soma 350 mg tablet RxNorm: 779823 1 Tablet(s) PO TID as needed for spasm 01/15/2013 No Stop Date Active hydrocodone 10 mg-acetaminophen 325 mg tablet RxNorm: 947304 2 1-2 Tablet(s) PO QID as needed for severe pain 01/15/2013 No Stop Date Active Soma 350 mg tablet RxNorm: 985295 1 Tablet(s) PO TID as needed for spasm 01/13/2013 No Stop Date Active alprazolam 0.5 mg tablet RxNorm: 896030 1 Tablet(s) PO BID 12/31/19 13 01/26/2013 Inactive prn diclofenac sodium 75 mg tablet,delayed release RxNorm: 21739 8 1 Tablet(s) PO BID for pain 12/09/2012 01/07/2013 Inactive gabapentin 600 mg tablet RxNorm: 951605 1 Tablet(s) PO QHS 12/10/19 13 01/07/2013 Inactive hydrocodone 10 mg-acetaminophen 325 mg tablet RxNorm: 083890 2 1-2 Tablet(s) PO QID as needed for severe pain 12/02/2012 No Stop Date Active Levaquin 750 mg tablet RxNorm: 344048 1 Tablet(s) PO QD 11/21/2012 Inactive Singulair 10 mg tablet RxNorm: 471965 1 Tablet(s) PO QD 11/11/2012 Inactive clonidine 0.2 mg tablet RxNorm: 305975 1 Tablet(s) PO TID 11/11/2012 04/15/2013 Inactive alprazolam 0.5 mg tablet RxNorm: 807136 1 Tablet(s) PO BID 11/12/19 13 12/10/2012 Inactive prn Klor-Con 8 mEq tablet,extended release RxNorm: 051461 1 Tablet( s) PO BID 11/11/2012 03/04/2013 Inactive hydrocodone 10 mg-acetaminophen 325 mg tablet RxNorm: 665462 2 1-2 Tablet(s) PO QID as needed for severe pain 11/06/2012 No Stop Date Active alprazolam 0.5 mg tablet RxNorm: 609391 1 Tablet(s) PO BID 10/15/19 13 11/10/2012 Inactive prn hydrocodone-acetaminophen 10 mg-325 mg tablet RxNorm: 512338 2 1-2 Tablet(s) PO QID as needed for severe pain 10/10/2012 10/09/2012 Inactive allopurinol 300 mg tablet RxNorm: 571487 1 Tablet(s) PO QD 09/20/19 13 12/18/2012 Inactive alprazolam 0.5 mg tablet RxNorm: 176119 1 Tablet(s) PO BID 09/17/19 13 10/14/2012 Inactive prn hydrocodone-acetaminophen 10 mg-325 mg tablet RxNorm: 302300 2 1-2 Tablet(s) PO QID as needed for severe pain 08/22/2012 08/21/2012 Inactive Norvasc 10 mg tablet RxNorm: 024410 1 Tablet(s) PO QD 08/12/201201/10 Inactive Premarin 1.25 mg tablet RxNorm: 797158 1-2 Tablet(s) PO QD 07/30/20 12 12/26/2012 Inactive alprazolam 0.5 mg tablet RxNorm: 960006 1 Tablet(s) PO BID 07/29/20 12 08/27/2012 Inactive prn Klor-Con 8 mEq tablet,extended release RxNorm: 506429 1 Tablet( s) PO BID 07/29/2012 11/10/2012 Inactive hydrocodone-acetaminophen 10 mg-325 mg tablet RxNorm: 842858 2 1-2 Tablet(s) PO QID as needed for severe pain 07/29/2012 No Stop Date Active Premarin 1.25 mg tablet RxNorm: 303168 1-2 Tablet(s) PO QD 07/29/20 12 07/29/2012 Inactive clonidine 0.2 mg tablet RxNorm: 509284 1 Tablet(s) PO TID 07/29/2012 10/28/2012 Inactive ketorolac 10 mg tablet RxNorm: 841120 1 Tablet(s) PO QID prn he adache 07/18/2012 No Stop Date Active hydrocodone-acetaminophen 10 mg-325 mg tablet RxNorm: 594544 2 1-2 Tablet(s) PO QID as needed for severe pain 07/03/2012 No Stop Date Active amlodipine 5 mg tablet RxNorm: 679566 1 Tablet(s) PO QD 07/02/2012 Inactive allopurinol 300 mg tablet RxNorm: 949513 1 Tablet(s) PO QD 07/02/20 12 09/19/2012 Inactive Celebrex 200 mg capsule RxNorm: 030549 1 Capsule(s) PO QD for j oint pain 06/26/2012 10/23/2012 Inactive diclofenac sodium 75 mg tablet,delayed release RxNorm: 75343 8 1 Tablet(s) PO BID for pain 06/19/2012 09/16/2012 Inactive hydrocodone-acetaminophen 10 mg-325 mg tablet RxNorm: 546285 2 1-2 Tablet(s) PO QID as needed for severe pain 06/10/2012 No Stop Date Active alprazolam 0.5 mg tablet RxNorm: 174128 1 Tablet(s) PO BID 06/03/20 12 07/02/2012 Inactive prn ketorolac 10 mg tablet RxNorm: 880862 1 Tablet(s) PO Q8H 05/27/2012 0 01/21/2019 Inactive as needed for headache hydrocodone-acetaminophen 10 mg-325 mg tablet RxNorm: 387610 2 1-2 Tablet(s) PO QID as needed for severe pain 05/15/2012 No Stop Date Active allopurinol 300 mg tablet RxNorm: 281833 1 Tablet(s) PO QD 05/14/20 12 06/12/2012 Inactive allopurinol 300 mg tablet RxNorm: 728600 1 Tablet(s) PO QD 05/14/20 12 05/13/2012 Inactive amlodipine 5 mg tablet RxNorm: 192757 1 Tablet(s) PO QD 05/01/2012 Inactive amlodipine 5 mg Tab RxNorm: 651776 1 Tablet(s) PO QD 05/01/201204/30 Inactive Celebrex 200 mg capsule RxNorm: 948305 1 Capsule(s) PO QD for j oint pain 05/01/2012 06/25/2012 Inactive Singulair 10 mg tablet RxNorm: 169351 1 Tablet(s) PO QD 05/01/2012 Inactive alprazolam 0.5 mg tablet RxNorm: 562912 1 Tablet(s) PO BID 05/01/20 12 05/30/2012 Inactive prn Celebrex 200 mg Cap RxNorm: 685481 1 Capsule(s) PO QD for joint radu n 05/01/2012 04/30/2012 Inactive hydrocodone-acetaminophen 10 mg-325 mg tablet RxNorm: 595061 2 1-2 Tablet(s) PO QID as needed for severe pain 04/19/2012 No Stop Date Active Lasix 40 mg tablet RxNorm: 335470 1 Tablet(s) PO RAZA ramirez take potassium supplementation with this medication 04/05/2012 06/03/2012 Inactive alprazolam 0.5 mg Tab RxNorm: 773196 1 Tablet(s) PO BID 04/05/2012 Inactive prn hydrocodone-acetaminophen 10 mg-325 mg Tab RxNorm: 3481883 1-2 Tablet(s) PO QID as needed for severe pain 03/25/2012 03/24/2012 Inactive clonidine 0.2 mg Tab RxNorm: 437003 1 Tablet(s) PO TID 03/08/2012 Inactive alprazolam 0.5 mg Tab RxNorm: 412462 1 Tablet(s) PO BID 03/08/2012 Inactive prn Soma 350 mg tablet RxNorm: 027137 1 Tablet(s) PO TID for spasm 02/0903/18/2012 Inactive clonidine 0.2 mg tablet RxNorm: 390202 1 Tablet(s) PO TID 03/08/2012 07/28/2012 Inactive Celebrex 200 mg Cap RxNorm: 659348 1 Capsule(s) PO QD for joint radu n 03/01/2012 04/29/2012 Inactive amlodipine 5 mg Tab RxNorm: 406084 1 Tablet(s) PO QD 02/26/201202/24 Inactive amlodipine 5 mg Tab RxNorm: 800148 1 Tablet(s) PO QD 02/26/201204/25 Inactive Bactroban 2 % Ointment RxNorm: 531995 Application TOP QID to sores 02/23/2012 No Stop Date Active amlodipine 2.5 mg tablet RxNorm: 633082 1 Tablet(s) PO QHS 02/20/2002/25/2012 Inactive doxycycline hyclate 100 mg Cap RxNorm: 2193686 1 Capsule(s) PO BID 02/20/2012 02/29/2012 Inactive hydrocodone-acetaminophen 10 mg-325 mg Tab RxNorm: 7730597 1-2 T ablet(s) PO QID 02/08/2012 No Stop Date Active alprazolam 0.5 mg Tab RxNorm: 169336 1 Tablet(s) PO BID 02/08/2012 Inactive prn Singulair 10 mg Tab RxNorm: 377384 1 Tablet(s) PO QD 02/08/201204/30 Inactive Soma 350 mg Tab RxNorm: 157761 1 Tablet(s) PO TID for spasm 012 03/07/2012 Inactive Soma 350 mg Tab RxNorm: 552228 1 Tablet(s) PO TID for spasm 012 02/05/2012 Inactive diclofenac sodium 75 mg tablet,delayed release RxNorm: 08307 8 1 Tablet(s) PO BID for pain 02/01/2012 03/18/2012 Inactive Celebrex 200 mg Cap RxNorm: 018940 1 Capsule(s) PO QD for joint radu n 01/30/2012 02/28/2012 Inactive Lasix 40 mg Tab RxNorm: 260945 1 Tablet(s) PO QAM 01/24/2012 03/18/20 12 Inactive potassium chloride ER 20 mEq tablet,extended release(part/cr yst) RxNorm: 710894 2 Tablet(s) PO BID 01/24/2012 02/22/2012 Inactive alprazolam 0.5 mg Tab RxNorm: 497019 1 Tablet(s) PO BID 01/11/2012 Inactive prn hydrocodone-acetaminophen 10 mg-325 mg Tab RxNorm: 2634536 1-2 T ablet(s) PO QID 01/11/2012 No Stop Date Active Ambien 10 mg Tab RxNorm: 460554 1 Tablet(s) PO QHS 01/11/2012 012 Inactive Klor-Con 8 mEq Tab RxNorm: 618360 1 Tablet(s) PO BID 01/11/201201/22 Inactive diclofenac sodium 75 mg Tab, Delayed Release RxNorm: 007677 1 Tablet(s) PO BID for pain 01/10/2012 01/31/2012 Inactive Ambien 10 mg Tab RxNorm: 693099 1 Tablet(s) PO QHS 12/11/2011 012 Inactive alprazolam 0.5 mg Tab RxNorm: 764512 1 Tablet(s) PO BID 12/11/2011 Inactive prn hydrocodone 10 mg-acetaminophen 325 mg tablet RxNorm: 308456 1-2 Tablet(s) PO TID 11/28/2011 No Stop Date Active as needed for pa in - Previous quantity #240, will start dosing for #180 in April [address] Ignacio. Ambien 10 mg Tab RxNorm: 540147 1 Tablet(s) PO QHS 11/09/2011 012 Inactive alprazolam 0.5 mg Tab RxNorm: 159494 1 Tablet(s) PO BID 11/09/2011 Inactive prn hydrocodone-acetaminophen 10 mg-325 mg Tab RxNorm: 1046070 1-2 T ablet(s) PO TID 11/06/2011 No Stop Date Active as needed for pain - Previous quantity #240, will start dosing for #180 in April 2011 [address] Doctor Ignacio. Singulair 10 mg Tab RxNorm: 739120 1 Tablet(s) PO QD 10/13/201110/12 Inactive Singulair 10 mg Tab RxNorm: 956268 1 Tablet(s) PO QD 10/13/201102/06 Inactive hydrocodone-acetaminophen 10 mg-325 mg Tab RxNorm: 1277202 1-2 T ablet(s) PO TID 10/10/2011 10/09/2011 Inactive as needed for pain - Previous quantity #240, will start dosing for #180 in April [address] Ignacio. hydrocodone-acetaminophen 10 mg-325 mg Tab RxNorm: 0291721 1-2 T ablet(s) PO TID 10/09/2011 No Stop Date Active as needed for pain - Previous quantity #240, will start dosing for #180 in April 2011 [address] Doctor Ignacio. Klor-Con 8 mEq Tab RxNorm: 734295 1 Tablet(s) PO BID 10/02/201101/09 Inactive triamterene 75 mg-hydrochlorothiazide 50 mg tablet RxNorm: 3 89260 1 Tablet(s) PO QD 09/14/2011 03/06/2013 Inactive Ambien 10 mg Tab RxNorm: 772238 1 Tablet(s) PO QHS 09/14/2011 012 Inactive hydrocodone-acetaminophen 10 mg-325 mg Tab RxNorm: 4086235 1-2 T ablet(s) PO TID 09/14/2011 No Stop Date Active as needed for pain - Previous quantity #240, will start dosing for #180 in April [address] Ignacio. alprazolam 0.5 mg Tab RxNorm: 009543 1 Tablet(s) PO BID 09/14/2011 Inactive prn Zithromax 500 mg Tab RxNorm: 535215 1 Tablet(s) PO QD 09/13/201109/10 Inactive prednisone 20 mg Tab RxNorm: 606898 1 Tablet(s) PO BID 08/31/2011 Inactive Ambien 10 mg Tab RxNorm: 044364 1 Tablet(s) PO QHS 08/17/2011 011 Inactive hydrocodone-acetaminophen 10 mg-325 mg Tab RxNorm: 8336910 1-2 T ablet(s) PO TID 08/17/2011 No Stop Date Active as needed for pain - Previous quantity #240, will start dosing for #180 in April 2011 [address] Ignacio. clonidine 0.2 mg Tab RxNorm: 252452 1 Tablet(s) PO TID 08/17/201112/2011 Inactive Ambien 10 mg Tab RxNorm: 922428 1 Tablet(s) PO QHS 08/17/2011 019 Inactive alprazolam 0.5 mg Tab RxNorm: 741266 1 Tablet(s) PO BID 08/17/2011 Inactive prn hydrocodone-acetaminophen 10 mg-325 mg Tab RxNorm: 6691514 1-2 T ablet(s) PO TID 08/17/2011 08/16/2011 Inactive as needed for pain - Previous quantity #240, will start dosing for #180 in April 2011 [address] Ignacio. Singulair 10 mg Tab RxNorm: 354718 1 Tablet(s) PO QD 08/17/201108/16 Inactive Klor-Con 8 mEq Tab RxNorm: 859757 1 Tablet(s) PO QD 08/17/20112011 Inactive alprazolam 0.5 mg Tab RxNorm: 243522 1 Tablet(s) PO BID 07/20/2011 Inactive prn Ambien 10 mg Tab RxNorm: 456192 1 Tablet(s) PO QHS 07/20/2011 012 Inactive Singulair 10 mg Tab RxNorm: 006254 1 Tablet(s) PO QD 07/20/201107/19 Inactive Premarin 1.25 mg tablet RxNorm: 028560 2 Tablet(s) PO QD 07/20/2011 0 01/21/2019 Inactive Premarin 1.25 mg tablet RxNorm: 734484 1-2 Tablet(s) PO QD 07/20/20 11 12/16/2011 Inactive Premarin 1.25 mg Tab RxNorm: 286825 1-2 Tablet(s) PO QD 07/06/2011 Inactive alprazolam 0.5 mg Tab RxNorm: 327117 1 Tablet(s) PO BID 06/22/2011 Inactive prn alprazolam 0.5 mg Tab RxNorm: 091816 1 Tablet(s) PO BID 06/22/2011 Inactive prn Premarin 1.25 mg Tab RxNorm: 677444 1 Tablet(s) PO QD m ay do 90 day fill if desired 06/22/2011 07/05/2011 Inactive hydrocodone-acetaminophen 10 mg-325 mg Tab RxNorm: 1528980 1-2 T ablet(s) PO TID 06/22/2011 No Stop Date Active as needed for pain - Previous quantity #240, will start dosing for #180 in April [address] Ignacio. clonidine 0.2 mg Tab RxNorm: 897798 1 Tablet(s) PO TID 05/25/201103/2011 Inactive triamterene-hydrochlorothiazide 75 mg-50 mg Tab RxNorm: 3108 18 1 Tablet(s) PO QD 05/25/2011 09/13/2011 Inactive alprazolam 0.5 mg Tab RxNorm: 999727 1 Tablet(s) PO BID 05/25/2011 Inactive prn hydrocodone-acetaminophen 10 mg-325 mg Tab RxNorm: 2646150 1-2 T ablet(s) PO TID 05/25/2011 No Stop Date Active as needed for pain - Previous quantity #240, will start dosing for #180 in April [address] Ignacio. Robaxin-750 750 mg Tab RxNorm: 914279 2 Tablet(s) PO QHS 05/22/2011 1 Inactive prn spasm hydrocodone-acetaminophen 10 mg-325 mg Tab RxNorm: 3243295 1-2 T ablet(s) PO TID 04/26/2011 No Stop Date Active as needed for pain - Previous quantity #240, will start dosing for #180 in April [address] Ignacio. alprazolam 0.5 mg Tab RxNorm: 271008 1 Tablet(s) PO BID 04/25/2011 Inactive prn Klor-Con 8 mEq Tab RxNorm: 178701 1 Tablet(s) PO QD 03/30/20112010 Inactive Klor-Con 8 mEq Tab RxNorm: 060191 1 Tablet(s) PO QD 03/29/20112010 Inactive hydrocodone-acetaminophen 10 mg-325 mg Tab RxNorm: 7947708 1-2 T ablet(s) PO TID 03/20/2011 04/25/2011 Inactive as needed for pain - Previous quantity #240, will start dosing for #180 in April [address] Ignacio. alprazolam 0.5 mg Tab RxNorm: 922279 1 Tablet(s) PO BID prn 011 03/30/2011 Inactive Ambien 10 mg Tab RxNorm: 100502 1 Tablet(s) PO QHS 03/01/2011 011 Inactive cyclobenzaprine 10 mg Tab RxNorm: 734330 1 Tablet(s) PO TID 011 03/18/2012 Inactive cyclobenzaprine 10 mg Tab RxNorm: 958418 1 Tablet(s) PO TID 011 01/08/2011 Inactive cyclobenzaprine 10 mg Tab RxNorm: 890249 1 Tablet(s) PO TID 011 12/20/2010 Inactive terbinafine 250 mg Tab RxNorm: 162154 1 Tablet(s) PO QD 12/12/2010 Inactive triamterene-hydrochlorothiazide 75 mg-50 mg Tab RxNorm: 3108 18 1 Tablet(s) PO QD 12/07/2010 01/12/2020 Inactive Klor-Con 8 8 mEq Tab RxNorm: 803882 1 Tablet(s) PO QD 12/07/201001/08 Inactive Premarin 1.25 mg Tab RxNorm: 635192 2 Tablet(s) PO QD 12/07/201001/08 Inactive clonidine 0.2 mg Tab RxNorm: 558156 1 Tablet(s) PO TID 12/07/2010 Inactive hydrocodone-acetaminophen 7.5 mg-650 mg Tab RxNorm: 416896 1 Ta blet(s) PO Q4H 12/05/2010 01/21/2019 Inactive hydrocodone-acetaminophen 7.5 mg-650 mg Tab RxNorm: 301361 1 Ta blet(s) PO Q4H 10/26/2010 11/14/2010 Inactive hydrocodone-acetaminophen 7.5 mg-650 mg Tab RxNorm: 423914 1 Ta blet(s) PO Q4H 10/13/2010 10/25/2010 Inactive hydrocodone-acetaminophen 7.5 mg-650 mg Tab RxNorm: 768222 1 Ta blet(s) PO Q4H 09/15/2010 09/12/2010 Inactive alprazolam 0.5 mg Tab RxNorm: 515361 1 Tablet(s) PO BID prn 011 09/12/2010 Inactive terbinafine 250 mg Tab RxNorm: 355356 1 Tablet(s) PO QD 09/05/2010 Inactive hydrocodone-acetaminophen 7.5 mg-650 mg Tab RxNorm: 807826 1 Ta blet(s) PO Q4H 08/29/2010 09/17/2010 Inactive alprazolam 0.5 mg Tab RxNorm: 434743 1 Tablet(s) PO BID prn 010 09/27/2010 Inactive alprazolam 0.5 mg Tab RxNorm: 216542 1 Tablet(s) PO BID prn 010 09/06/2010 Inactive Klor-Con 8 mEq Tab RxNorm: 040880 1 Tablet(s) PO QD 08/08/20102010 Inactive hydrocodone-acetaminophen 7.5 mg-650 mg Tab RxNorm: 951448 1 Ta blet(s) PO Q4H 08/08/2010 08/27/2010 Inactive Ambien 10 mg Tab RxNorm: 544301 1 Tablet(s) PO QHS 08/08/2010 Inactive clonidine 0.2 mg Tab RxNorm: 167295 1 Tablet(s) PO TID 08/08/2010 Inactive Premarin 1.25 mg Tab RxNorm: 362993 2 Tablet(s) PO QD 08/08/201009/12 Inactive Ambien 10 mg Tab RxNorm: 304332 1 Tablet(s) PO QHS 07/18/2010 Inactive alprazolam 0.5 mg Tab RxNorm: 857702 1 Tablet(s) PO BID prn 010 08/07/2010 Inactive hydrocodone-acetaminophen 7.5 mg-650 mg Tab RxNorm: 835439 1 Ta blet(s) PO Q4H 07/12/2010 07/31/2010 Inactive clonidine 0.2 mg Tab RxNorm: 456776 1 Tablet(s) PO TID 06/20/2010 Inactive terbinafine 250 mg Tab RxNorm: 110709 1 Tablet(s) PO QD 05/24/2010 Inactive Clonidine 0.2 mg Tab RxNorm: 820257 1 Tablet(s) PO TID 05/24/201006/2010 Inactive Ambien 10 mg Tab RxNorm: 334396 1 Tablet(s) PO QHS 05/24/2010 Inactive alprazolam 0.5 mg Tab RxNorm: 423953 1 Tablet(s) PO BID 05/24/2010 Inactive Klor-Con 8 mEq Tab RxNorm: 496225 1 Tablet(s) PO QD 05/24/20102009 Inactive alprazolam 0.5 mg Tab RxNorm: 752940 2 Tablet(s) PO QD prn 05/24/2007/17/2010 Inactive triamterene-hydrochlorothiazide 75 mg-50 mg Tab RxNorm: 3108 18 1 Tablet(s) PO QD 05/24/2010 11/19/2010 Inactive Ambien 10 mg Tab RxNorm: 999918 1 Tablet(s) PO QHS 05/23/2010 Inactive Alprazolam 0.5 mg Tab RxNorm: 978657 2 Tablet(s) PO QD prn 05/23/20 10 05/23/2010 Inactive Premarin 1.25 mg Tab RxNorm: 853041 2 Tablet(s) PO QD 05/19/201007/12 Inactive Hydrocodone-Acetaminophen 7.5 mg-650 mg Tab RxNorm: 249525 1 Ta blet(s) PO Q4H 05/19/2010 03/20/2011 Inactive Prednisone 20 mg Tab RxNorm: 687434 1 Tablet(s) PO BID 05/17/2010 Inactive Prednisone 20 mg Tab RxNorm: 198448 1 Tablet(s) PO BID 05/06/201001/2010 Inactive Premarin 1.25 mg Tab RxNorm: 839077 Tablet(s) PO 2 M-W-F, and 1 Hh-Jq-Vao-Sun 05/05/2010 08/02/2010 Inactive Premarin 1.25 mg Tab RxNorm: 471086 Tablet(s) PO 2 M-W-F, and 1 Mf-Sa-Jsg-Sun 05/04/2010 05/04/2010 Inactive Premarin 1.25 mg Tab RxNorm: 834357 Tablet(s) PO 2 M-W-F, and 1 Dx-Xd-Zps-Sun 05/04/2010 05/03/2010 Inactive Prednisone 20 mg Tab RxNorm: 011317 1 Tablet(s) PO BID 04/27/2010 Inactive Alprazolam 0.5 mg Tab RxNorm: 162679 2 Tablet(s) PO QD prn 04/26/20 10 05/22/2010 Inactive Clindamycin 300 mg Cap RxNorm: 088156 2 Capsule(s) PO TID 04/05/2010 04/18/2010 Inactive Terbinafine 250 mg Tab RxNorm: 237744 1 Tablet(s) PO QD 04/04/2010 Inactive Hydrocodone-Acetaminophen 7.5 mg-650 mg Tab RxNorm: 219944 1 Ta blet(s) PO Q4H 03/30/2010 04/18/2010 Inactive Avelox 400 mg Tab RxNorm: 343859 1 Tablet(s) PO QD 03/09/2010 Inactive Hydrocodone-Acetaminophen 7.5 mg-650 mg Tab RxNorm: 264366 1 Ta blet(s) PO Q4H 03/08/2010 03/27/2010 Inactive Alprazolam 0.5 mg Tab RxNorm: 143015 2 Tablet(s) PO QD prn 03/08/20 10 04/25/2010 Inactive Klor-Con 8 mEq Tab RxNorm: 778968 1 Tablet(s) PO QD when takes lasi x 03/07/2010 09/29/2019 Inactive Premarin 1.25 mg Tab RxNorm: 506993 1 Tablet(s) PO QD 03/03/201003/11 Inactive Alprazolam 0.5 mg Tab RxNorm: 269646 1 Tablet(s) PO BID PRN 010 No Stop Date Active triamterene-hydrochlorothiazide 75 mg-50 mg Tab RxNorm: 3108 18 1 Tablet(s) PO QD 02/09/2010 02/03/2011 Inactive Hydrocodone-Acetaminophen 10 mg-750 mg Tab RxNorm: 742872 1 Tablet(s) PO Q4H PRN 02/09/2010 03/20/2011 Inactive Clonidine 0.2 mg Tab RxNorm: 216687 1 Tablet(s) PO TID 01/13/201009/2009 Inactive Alprazolam 0.5 mg Tab RxNorm: 621191 1 Tablet(s) PO BID PRN 010 01/12/2010 Inactive Hydrocodone-Acetaminophen 10 mg-750 mg Tab RxNorm: 690905 1 Tablet(s) PO Q4H PRN 01/13/2010 01/12/2010 Inactive ANGELIQ 1 mg-0.5 mg Tab RxNorm: 0941840 1 Tablet(s) PO QD 12/27/2009 01/23/2010 Inactive Lasix 40 mg Tab RxNorm: 716269 1 Tablet(s) PO QAM 12/14/2009 06/11/20 10 Inactive Vitamin B12 1000mcg Tablet RxNorm: 1 Tablet(s) PO QD No Start Date Active cyclobenzaprine 10 mg tablet RxNorm: 468136 1 Tablet(s) PO TID as needed DO NOT USE WITH BACLOFEN No Start Date Active Vitamin D 5,000 unit Tab RxNorm: 1 Tablet(s) PO QD No Start Date Active vitamin E (dl, acetate) 400 unit Cap RxNorm: 498131 1 Capsule(s ) PO QD No Start Date Active Benadryl 25 mg Cap RxNorm: 3322161 Capsule(s) PO PRN No Start Date Inactive amitriptyline 100 mg tablet RxNorm: 934146 1 Tablet(s) PO QHS No St art Date 11/27/2016 Inactive Zithromax Z-Dustin 250 mg tablet RxNorm: 337791 Tablet(s) PO as di rected No Start Date 07/22/2013 Inactive Klor-Con 8 mEq tablet,extended release RxNorm: 957083 1 Tablet( s) PO BID No Start Date 07/28/2012 Inactive scopolamine 1.5 mg 72 hr Transderm Patch RxNorm: 918531 Application TD Q72H for motion sickness No Start Date 05/25/2013 Inactive Klonopin 1 mg tablet RxNorm: 025782 1-2 Tablet(s) PO QHS as nee ded for sleep No Start Date 06/20/2015 Inactive Klor-Con M20 mEq tablet,extended release RxNorm: 945751 2 Tablet(s) PO BID to use with lasix No Start Date 11/11/2013 Inactive Bystolic 5 mg tablet RxNorm: 340077 1 Tablet(s) PO QD No Start Date 1 Inactive Bystolic 10 mg tablet RxNorm: 779843 1 Tablet(s) PO BID No Start Da te 07/06/2015 Inactive Premarin 1.25 mg Tab RxNorm: 903080 Tablet(s) PO 2 -W-, and 1 Fa-Bd-Qci-Sun No Start Date 05/03/2010 Inactive baclofen 20 mg tablet RxNorm: 978883 1 Tablet(s) PO TID as needed for muscle spasm No Start Date 07/22/2015 Inactive hydrocodone-acetaminophen 7.5 mg-650 mg Tab RxNorm: 523597 1 Tablet(s) PO Q4H as needed for pain No Start Date 03/20/2011 Inactive albuterol sulfate 1.25 mg/3 mL Neb Solution RxNorm: 170835 1 Unit Dose INH Q4H 2boxes No Start Date 09/06/2015 Inactive Butrans 20 mcg/hour Transderm Patch RxNorm: 899431 1 TD WEEKLY apply to skin weekly after removing previous. No Start Date 07/22/2013 Inactive Medrol (Dustin) 4 mg tablets in a dose pack RxNorm: 660900 Tablet(s) PO As Directed No Start Date 07/30/2016 Inactive hydrocodone-acetaminophen 10 mg-325 mg Tab RxNorm: 2862023 1-2 Tablet(s) PO TID as needed for pain No Start Date 03/19/2011 Inactive Klonopin 1 mg tablet RxNorm: 690054 1 Tablet(s) PO QHS No Start Date 02/28/2016 Inactive honey topical RxNorm: topical No Start Date 06/16/2018 Inactive Clonidine 0.2 mg Tab RxNorm: 992993 1 Tablet(s) PO TID No Start Date 01/12/2010 Inactive ketorolac 10 mg tablet RxNorm: 304577 1 Tablet(s) PO Q8H No Start D ate 03/18/2012 Inactive as needed for headache Singulair 10 mg Tab RxNorm: 058191 1 Tablet(s) PO QD No Start Date Inactive Premarin 1.25 mg Tab RxNorm: 072059 1 Tablet(s) PO QD No Start Date 1 Inactive Flonase 50 mcg/Actuation Nasal [place] RxNorm: 3480778 1 [place] BID No Start Date 03/18/2012 Inactive Terbinafine 250 mg Tab RxNorm: 629673 1 Tablet(s) PO QD No Start Da te 04/03/2010 Inactive Fexofenadine 180 mg Tab RxNorm: 3372893 1 Tablet(s) PO QD No Start Date 09/06/2015 Inactive baclofen 20 mg tablet RxNorm: 931733 1 Tablet(s) PO TID as needed N o Start Date 05/25/2014 Inactive Diovan 160 mg Tab RxNorm: 726721 1 Tablet(s) PO QD No Start Date 09/12 Inactive mupirocin 2 % topical ointment RxNorm: 109695 1 Application TOP QID No Start Date 04/25/2016 Inactive ZOFRAN ODT 4 mg Tab, Rapid Dissolve RxNorm: 292767 1 Tablet(s) PO Q4H No Start Date 03/18/2012 Inactive as needed for nausea and vomiting Alprazolam 0.5 mg Tab RxNorm: 556048 1 Tablet(s) PO BID PRN No Star t Date 01/12/2010 Inactive cyclobenzaprine 10 mg tablet RxNorm: 463995 1 Tablet(s) PO TID as needed for muscle spasm No Start Date 10/08/2017 Inactive Albuterol 0.083% Aerosol Solution RxNorm: 1 Appl ication INH Q4H Use one ampule every 4 hrs with nebulizer as needed for shortness of breath. No Start Date 10/09/2010 Inactive lorazepam 1 mg tablet RxNorm: 545619 1 1/2 Tablet(s) PO QHS No Star t Date 02/02/2016 Inactive Melatonin 3 mg Tab RxNorm: 632591 Tablet(s) PO PRN No Start Date 07/11 Inactive Medrol (Dustin) 4 mg Tabs in a Dose Pack RxNorm: 020515 Tablet(s) PO N o Start Date 11/28/2010 Inactive lorazepam 1 mg tablet RxNorm: 840793 1 Tablet(s) PO QHS as need ed for sleep No Start Date 01/30/2016 Inactive hydrocodone-acetaminophen 10 mg-325 mg Tab RxNorm: 0200914 1-2 Tablet(s) PO QID as needed for severe pain No Start Date 03/24/2012 Inactive celecoxib 200 mg capsule RxNorm: 067905 1 Capsule(s) PO BID No Star t Date 06/26/2019 Inactive amlodipine 5 mg-benazepril 20 mg capsule RxNorm: 047843 1 Capsu le(s) PO QD No Start Date 04/10/2017 Inactive Bystolic 20 mg tablet RxNorm: 182186 1/2 Tablet(s) PO QAM No Start Date 01/23/2016 Inactive Bystolic 20 mg tablet RxNorm: 599698 1 Tablet(s) PO QAM No Start Da te 04/25/2016 Inactive Ambien 10 mg Tab RxNorm: 159949 1 Tablet(s) PO QHS No Start Date 05/11 Inactive Klor-Con 8 mEq Tab RxNorm: 439333 1 Tablet(s) PO QD when takes lasix No Start Date 03/06/2010 Inactive aspirin 81 mg tablet RxNorm: 606309 1 Tablet(s) PO QD No Start Date 0 01/29/2018 Inactive hydrocodone-acetaminophen 10 mg-325 mg Tab RxNorm: 3311601 1-2 T ablet(s) PO QID No Start Date 01/10/2012 Inactive Bystolic 10 mg tablet RxNorm: 970542 1 Tablet(s) PO QAM take one daily in the morning. No Start Date 05/28/2013 Inactive nystatin 100,000 unit/mL Oral Susp RxNorm: 395643 5 Milliliter( s) PO QID No Start Date 03/18/2012 Inactive swish and spit scopolamine 1.5 mg 72 hr Transderm Patch RxNorm: 992327 1 Unit Dose TD Q72H for motion sickness No Start Date 12/23/2013 Inactive Hydrocodone-Acetaminophen 10 mg-750 mg Tab RxNorm: 316656 1 Tablet(s) PO Q4H PRN No Start Date 01/12/2010 Inactive Soma 350 mg tablet RxNorm: 526398 1 Tablet(s) PO TID as needed for spasm No Start Date 01/12/2013 Inactive baclofen 10 mg tablet RxNorm: 764221 1 Tablet(s) PO TID as needed for muscle spasm No Start Date 09/18/2019 Inactive Soma 350 mg Tab RxNorm: 383769 1 Tablet(s) PO TID for spasm No Star t Date 01/31/2012 Inactive Co Q-10 400 mg capsule RxNorm: 251417 1 Capsule(s) PO QD No Start D ate 01/21/2019 Inactive nystatin 100,000 unit/gram topical cream RxNorm: 645439 Applica tion TOP BID No Start Date 03/22/2015 Inactive Exforge 5 mg-160 mg Tab RxNorm: 089229 1 Tablet(s) PO QD No Start D ate 10/09/2010 Inactive Hydrocodone-Acetaminophen 7.5 mg-650 mg Tab RxNorm: 825283 1 Ta blet(s) PO Q4H No Start Date 03/07/2010 Inactive Robaxin-750 750 mg Tab RxNorm: 883421 1-2 Tablet(s) PO TID prn spasm No Start Date 05/21/2011 Inactive amlodipine 5 mg tablet RxNorm: 764238 1 Tablet(s) PO QHS No Start D ate 09/29/2015 Inactive oxycodone-acetaminophen 10 mg-325 mg tablet RxNorm: 8424684 1-2 Tablet(s) PO Q6H No Start Date 06/16/2018 Inactive Triamterene-Hydrochlorothiazide 75 mg-50 mg Tab RxNorm: 3108 18 1 Tablet(s) PO QD No Start Date 02/08/2010 Inactive Alprazolam 0.5 mg Tab RxNorm: 216692 2 Tablet(s) PO QD prn No Start Date 03/07/2010 Inactive Bystolic 20 mg tablet RxNorm: 489991 1 Tablet(s) PO QAM No Start Da te 08/17/2015 Inactive ketorolac 10 mg tablet RxNorm: 915203 1 Tablet(s) PO QID prn he adache No Start Date 07/17/2012 Inactive acyclovir 800 mg Tab RxNorm: 121326 1 Tablet(s) PO BID No Start Date 03/18/2012 Inactive duloxetine 60 mg capsule,delayed release RxNorm: 792160 1 Capsu le(s) PO QD No Start Date 09/29/2015 Inactive Norvasc 5 mg tablet RxNorm: 743597 1 Tablet(s) PO QHS No Start Date 1 10/18/2014 Inactive promethazine 25 mg tablet RxNorm: 183435 1 Tablet(s) PO Q8H use sparingly No Start Date 07/22/2013 Inactive alprazolam 0.5 mg tablet RxNorm: 873750 3 Tablet(s) PO QHS No Start Date 06/06/2015 Inactive Lunesta 3 mg tablet RxNorm: 882645 1 Tablet(s) PO QHS No Start Date 0 09/20/2017 Inactive hydrocodone-acetaminophen 10 mg-325 mg Tab RxNorm: 3544221 1-2 Tablet(s) PO TID as needed for pain No Start Date 12/10/2011 Inactive Coricidin HBP Cough & Cold 4 mg-30 mg Tab RxNorm: 5735428 Tablet (s) PO PRN No Start Date 10/09/2010 Inactive Bactroban 2 % Ointment RxNorm: 472289 Application TOP QID to so res No Start Date 02/22/2012 Inactive Flonase 50 mcg/actuation Nasal [place] RxNorm: 456013 2 [place] QHS No Start Date 03/03/2014 Inactive Medication Administered No Medication Administered data Immunizations Vaccine Codes Date Status Tetanus, Diptheria, Pertussis CVX: 115 02/27/2014 Results Observation Observation Code Item Item Code Result Date S ervice Location MEAN GLUC 2637133 Calc Mean Gluc 209 mg/dL 02/12/2020 Unkn own GLYCOSYLATED HEMOGLOBIN TEST 95190 Hgb A1c 83729-4 8.9 % 0 02/12/2020 Unknown GFR CALC 1239362 GFR Non Afr Amr >60 mL/min 02/12/2020 Un known GFR CALC 4020283 GFR Afr Amr >60 mL/min 02/12/2020 Unknow n COMPREHENSIVE METABOLIC 87959 AST 27 U/L 2019 Unknown COMPREHENSIVE METABOLIC 80399 ALT 16 U/L 2019 Unknown COMPREHENSIVE METABOLIC 81171 BUN 22 mg/dL 2019 Unknown COMPREHENSIVE METABOLIC 08098 ALBUMIN 3.9 g/dL 2019 Unknown COMPREHENSIVE METABOLIC 85452 CHLORIDE 98 mmol/L 2019 Unknown COMPREHENSIVE METABOLIC 27230 Bili Total 0.5 mg/dL 02/11 Unknown COMPREHENSIVE METABOLIC 96176 ALK PHOS 72 U/L 2019 Unknown COMPREHENSIVE METABOLIC 70326 SODIUM 137 mmol/L 02/11 Unknown COMPREHENSIVE METABOLIC 87553 CREATININE 0.96 mg/dL 12/2019 Unknown COMPREHENSIVE METABOLIC 67641 CALCIUM 9.1 mg/dL 2019 Unknown COMPREHENSIVE METABOLIC 11118 POTASSIUM 4.6 mmol/L 02/11 Unknown COMPREHENSIVE METABOLIC 52259 Total Protein 6.5 g/dL Unknown COMPREHENSIVE METABOLIC 32982 Glucose 129 mg/dL 2019 Unknown COMPREHENSIVE METABOLIC 55071 Bicarbonate 31 mmol/L 12/2019 Unknown COMPREHENSIVE METABOLIC 35042 AGAP 8 mmol/L 2019 Unknown COMPREHENSIVE METABOLIC 61647 AST 15 U/L 2019 Unknown COMPREHENSIVE METABOLIC 41118 ALT 13 U/L 2019 Unknown COMPREHENSIVE METABOLIC 53112 BUN 12 mg/dL 2019 Unknown COMPREHENSIVE METABOLIC 46166 ALBUMIN 3.9 g/dL 2019 Unknown COMPREHENSIVE METABOLIC 39887 CHLORIDE 97 mmol/L 2019 Unknown COMPREHENSIVE METABOLIC 43645 Bili Total 0.4 mg/dL 09/29 Unknown COMPREHENSIVE METABOLIC 45656 ALK PHOS 130 U/L 2019 Unknown COMPREHENSIVE METABOLIC 72475 SODIUM 136 mmol/L 09/29 Unknown COMPREHENSIVE METABOLIC 79734 CREATININE 0.92 mg/dL 09/11 Unknown COMPREHENSIVE METABOLIC 16152 CALCIUM 9.1 mg/dL 2019 Unknown COMPREHENSIVE METABOLIC 19472 POTASSIUM 4.4 mmol/L 09/29 Unknown COMPREHENSIVE METABOLIC 03895 Total Protein 6.2 g/dL Unknown COMPREHENSIVE METABOLIC 12267 Glucose 391 mg/dL 2019 Unknown COMPREHENSIVE METABOLIC 07657 Bicarbonate 30 mmol/L 09/11 Unknown COMPREHENSIVE METABOLIC 53763 AGAP 9 mmol/L 2019 Unknown MEAN GLUC 9795970 Calc Mean Gluc 332 mg/dL 09/29/2019 Unkn own COMPLETE BLOOD COUNT [id number] WBC 7.0 10e9/L 09/29/19 Unknown COMPLETE BLOOD COUNT [id number] RBC 4.69 10e12/L 2019 Unknown COMPLETE BLOOD COUNT [id number] HEMOGLOBIN 14.6 g/dL 09/29/19 Unknown COMPLETE BLOOD COUNT [id number] HEMATOCRIT 45.2 % 09/29/19 Unknown COMPLETE BLOOD COUNT [id number] MCV 96.4 fL 0 Unknown COMPLETE BLOOD COUNT [id number] MCH 31.1 pg 0 Unknown COMPLETE BLOOD COUNT 9559776 MCHC 32.3 g/dL 0 Unknown COMPLETE BLOOD COUNT 3585015 PLATELET COUNT 209 10e9/L Unknown COMPLETE BLOOD COUNT 1205473 Mean Plt Volume 9.8 fL Unknown COMPLETE BLOOD COUNT [id number] Neut Auto 48.1 % 0 Unknown COMPLETE BLOOD COUNT 8996002 Lymph Auto 36.5 % 09/29/19 Unknown COMPLETE BLOOD COUNT [id number] Taylor Auto 8.6 % 0 Unknown COMPLETE BLOOD COUNT 3509016 RDW 13.4 % 0 Unknown COMPLETE BLOOD COUNT 8390031 Eos Auto 6.5 % 0 Unknown COMPLETE BLOOD COUNT [id number] Baso Auto 0.3 % 0 Unknown COMPLETE BLOOD COUNT 7754292 Neutrophil Abs 3.37 10e9/L Unknown COMPLETE BLOOD COUNT [id number] Lymphocyte Abs 2.56 10e9/L Unknown COMPLETE BLOOD COUNT [id number] Monocyte Abs 0.60 10e9/L 09/11 Unknown COMPLETE BLOOD COUNT [id number] Eosinophil Abs 0.46 10e9/L Unknown COMPLETE BLOOD COUNT [id number] RDW-SD 45.9 fL 0 Unknown COMPLETE BLOOD COUNT [id number] Basophil Abs 0.02 10e9/L 09/11 Unknown LIPID GROUP 07272 Cholesterol 248 mg/dL 09/29/2019 Unkno wn LIPID GROUP 97569 Triglyceride 898 mg/dL 09/29/2019 Unkn own LIPID GROUP 81455 HDL CHOLESTEROL 41 mg/dL 09/29/2019 U nknown LIPID GROUP 01109 Chol/HDL Ratio 6.05 ratio 09/29/2019 U nknown LIPID GROUP 77504 NON-HDL Chol 207 mg/dL 09/29/2019 Unkn own LIPID GROUP 41687 LDL Cholesterol N/A Trig >400 020 Unknown GLYCOSYLATED HEMOGLOBIN TEST 02009 Hgb A1c 69401-0 13.2 % 0 09/29/2019 Unknown FREE T4 04610 T4 Free 0.75 ng/dL 09/29/2019 Unknown GFR CALC 2582623 GFR Non Afr Amr >60 mL/min 09/29/2019 Un known GFR CALC 1543390 GFR Afr Amr >60 mL/min 09/29/2019 Unknow n THYROID STIMULATING HORMONE 45902 TSH 4.245 uIU/mL 09/29/2019 Unknown COMPLETE BLOOD COUNT 9989747 WBC 10.7 10e9/L 018 Unknown COMPLETE BLOOD COUNT [id number] RBC 4.59 10e12/L 2017 Unknown COMPLETE BLOOD COUNT 9984262 HEMOGLOBIN 14.8 g/dL 12/11/19 18 Unknown COMPLETE BLOOD COUNT 1266996 HEMATOCRIT 44.9 % 12/11/19 18 Unknown COMPLETE BLOOD COUNT 5614805 MCV 97.8 fL 8 Unknown COMPLETE BLOOD COUNT 6607471 MCH 32.2 pg 8 Unknown COMPLETE BLOOD COUNT 9929671 MCHC 33.0 g/dL 8 Unknown COMPLETE BLOOD COUNT 4692785 PLATELET COUNT 261 10e9/L 10/2017 Unknown COMPLETE BLOOD COUNT 8457750 Mean Plt Volume 9.5 fL 10/2017 Unknown COMPLETE BLOOD COUNT 2109130 Neut Auto 59.9 % 8 Unknown COMPLETE BLOOD COUNT [id number] Lymph Auto 27.4 % 12/11/19 18 Unknown COMPLETE BLOOD COUNT 1476370 Taylor Auto 8.2 % 8 Unknown COMPLETE BLOOD COUNT 3158773 RDW 13.3 % 8 Unknown COMPLETE BLOOD COUNT 8661337 Eos Auto 4.1 % 8 Unknown COMPLETE BLOOD COUNT 1066112 Baso Auto 0.4 % 8 Unknown COMPLETE BLOOD COUNT 2209755 Neutrophil Abs 6.41 10e9/L Unknown COMPLETE BLOOD COUNT [id number] Lymphocyte Abs 2.93 10e9/L Unknown COMPLETE BLOOD COUNT [id number] Monocyte Abs 0.88 10e9/L 10/2017 Unknown COMPLETE BLOOD COUNT [id number] Eosinophil Abs 0.44 10e9/L Unknown COMPLETE BLOOD COUNT 1032012 RDW-SD 46.2 fL 8 Unknown COMPLETE BLOOD COUNT 3389012 Basophil Abs 0.04 10e9/L 10/2017 Unknown THYROID STIMULATING HORMONE 28325 TSH 4.015 uIU/mL 12/10/2017 Unknown COMPREHENSIVE METABOLIC 67335 AST 25 U/L 2017 Unknown COMPREHENSIVE METABOLIC 44144 ALT 17 U/L 2017 Unknown COMPREHENSIVE METABOLIC 05205 BUN 19 mg/dL 2017 Unknown COMPREHENSIVE METABOLIC 71314 ALBUMIN 4.0 g/dL 2017 Unknown COMPREHENSIVE METABOLIC 90108 CHLORIDE 91 mmol/L 2017 Unknown COMPREHENSIVE METABOLIC 95178 Bili Total 0.5 mg/dL 12/10 Unknown COMPREHENSIVE METABOLIC 23334 ALK PHOS 75 U/L 2017 Unknown COMPREHENSIVE METABOLIC 35209 SODIUM 136 mmol/L 12/10 Unknown COMPREHENSIVE METABOLIC 49940 CREATININE 1.05 mg/dL 10/2017 Unknown COMPREHENSIVE METABOLIC 00793 CALCIUM 8.9 mg/dL 2017 Unknown COMPREHENSIVE METABOLIC 99087 POTASSIUM 3.4 mmol/L 12/10 Unknown COMPREHENSIVE METABOLIC 26203 Total Protein 6.5 g/dL Unknown COMPREHENSIVE METABOLIC 13983 Glucose 138 mg/dL 2017 Unknown COMPREHENSIVE METABOLIC 17455 Bicarbonate 35 mmol/L 10/2017 Unknown COMPREHENSIVE METABOLIC 12965 AGAP 10 mmol/L 2017 Unknown [facility] 3237323 Calc Mean Gluc 171 mg/dL 12/10/2017 Unkn own LIPID GROUP 19786 Cholesterol 204 mg/dL 12/10/2017 Unkno wn LIPID GROUP 79285 Triglyceride 411 mg/dL 12/10/2017 Unkn own LIPID GROUP 31727 HDL CHOLESTEROL 50 mg/dL 12/10/2017 U nknown LIPID GROUP 00377 Chol/HDL Ratio 4.08 ratio 12/10/2017 U nknown LIPID GROUP 80717 NON-HDL Chol 154 mg/dL 12/10/2017 Unkn own LIPID GROUP 68981 LDL Cholesterol N/A Trig >400 018 Unknown GLYCOSYLATED HEMOGLOBIN TEST 25537 Hgb A1c 94014-2 7.6 % 0 12/10/2017 Unknown FREE T4 69906 T4 Free 1.40 ng/dL 12/10/2017 Unknown GFR CALC 9613324 GFR Non Afr Amr 55 mL/min 12/10/2017 Unk nown GFR CALC 1670784 GFR Afr Amr >60 mL/min 12/10/2017 Unknow n GFR CALC 4734377 GFR Non Afr Amr 48 mL/min 06/28/2017 Unk nown GFR CALC 3937366 GFR Afr Amr 59 mL/min 06/28/2017 Unknown COMPREHENSIVE METABOLIC 99075 AST 32 U/L 2016 Unknown COMPREHENSIVE METABOLIC 93373 ALT 22 U/L 2016 Unknown COMPREHENSIVE METABOLIC 79160 BUN 23 mg/dL 2016 Unknown COMPREHENSIVE METABOLIC 50885 ALBUMIN 4.7 g/dL 2016 Unknown COMPREHENSIVE METABOLIC 42419 CHLORIDE 89 mmol/L 2016 Unknown COMPREHENSIVE METABOLIC 71362 Bili Total 0.5 mg/dL 06/28 Unknown COMPREHENSIVE METABOLIC 74010 ALK PHOS 90 U/L 2016 Unknown COMPREHENSIVE METABOLIC 29117 SODIUM 135 mmol/L 06/28 Unknown COMPREHENSIVE METABOLIC 28026 CREATININE 1.18 mg/dL 06/10 Unknown COMPREHENSIVE METABOLIC 23068 CALCIUM 9.7 mg/dL 2016 Unknown COMPREHENSIVE METABOLIC 99298 POTASSIUM 3.5 mmol/L 06/28 Unknown COMPREHENSIVE METABOLIC 76706 Total Protein 7.7 g/dL Unknown COMPREHENSIVE METABOLIC 35005 Glucose 129 mg/dL 2016 Unknown COMPREHENSIVE METABOLIC 52565 Bicarbonate 34 mmol/L 06/10 Unknown COMPREHENSIVE METABOLIC 56031 AGAP 12 mmol/L 2016 Unknown LIPID GROUP 25790 HDL TEST 64 MG/DL 08/27/2014 Unknown LIP[facility] GROUP 57894 TRIG 222 MG/DL 08/27/2014 Unknown LIPID GROUP 07546 TEST LDL 209 MG/DL 08/27/2014 Unknown LIPID GROUP 72893 CHOL 317 MG/DL 08/27/2014 Unknown LIPID GROUP 69667 RCHOL/HDL 4.95 RATIO 08/27/2014 Unknow n LIPID GROUP 34428 NON-HDL CH 253 MG/DL 08/27/2014 Unknow n GFR CALC 1747819 GFR AA >60 ML/MIN 08/27/2014 Unknown GFR CALC 0561894 GFR NON-AA >60 ML/MIN 08/27/2014 Unknown COMPLETE BLOOD COUNT 1439763 WBC 7.0 10e9/L 08/27/20 14 Unknown COMPLETE BLOOD COUNT [id number] RBC 4.98 10e12/L 2013 Unknown COMPLETE BLOOD COUNT 4136673 HGB 15.6 g/dL 4 Unknown COMPLETE BLOOD COUNT 5836513 HCT DET 46.5 % 4 Unknown COMPLETE BLOOD COUNT 9823123 MCV 93.4 fL 4 Unknown COMPLETE BLOOD COUNT 2004671 MCH 31.3 pg 4 Unknown COMPLETE BLOOD COUNT 1311212 MCHC 33.5 g/dL 4 Unknown COMPLETE BLOOD COUNT 7309192 PLT 309 10e9/L 08/27/20 14 Unknown COMPLETE BLOOD COUNT 7370981 MPV 9.6 fL 4 Unknown COMPLETE BLOOD COUNT 5770158 CADEN % 57.2 % 4 Unknown COMPLETE BLOOD COUNT 0752473 LY % 33.2 % 4 Unknown COMPLETE BLOOD COUNT 2498528 MON % 7.3 % 4 Unknown COMPLETE BLOOD COUNT 4341013 EOS % 2.0 % 4 Unknown COMPLETE BLOOD COUNT 5792737 BASO % 0.3 % 4 Unknown COMPLETE BLOOD COUNT 6241981 RDW 13.7 % 4 Unknown COMPLETE BLOOD COUNT 6410781 ABS CADEN 4.00 10e9/L 014 Unknown COMPLETE BLOOD COUNT 3254811 ABS LYMPH 2.32 10e9/L 014 Unknown COMPLETE BLOOD COUNT 4545608 ABS MONO 0.51 10e9/L 014 Unknown COMPLETE BLOOD COUNT [id number] ABS EOS 0.14 10e9/L 014 Unknown COMPLETE BLOOD COUNT 8234772 ABS BASO 0.02 10e9/L 014 Unknown COMPLETE BLOOD COUNT 8047337 RDW-SD 45.1 fL 4 Unknown COMPREHENSIVE METABOLIC 52887 AST 13 U/L 2013 Unknown COMPREHENSIVE METABOLIC 24404 ALT 11 IU/L 2013 Unknown COMPREHENSIVE METABOLIC 57283 BUN 23 MG/DL 2013 Unknown COMPREHENSIVE METABOLIC 46919 ALBUMIN 4.4 GM/DL 2013 Unknown COMPREHENSIVE METABOLIC 90693 CHLORIDE 99 MMOL/L 2013 Unknown COMPREHENSIVE METABOLIC 49434 BILI TOT 0.5 MG/DL 2013 Unknown COMPREHENSIVE METABOLIC 63277 ALK PHOS 56 U/L 2013 Unknown COMPREHENSIVE METABOLIC 98433 SODIUM 138 MMOL/L 08/27 Unknown COMPREHENSIVE METABOLIC 10750 CREATININE 0.95 MG/DL 08/10 Unknown COMPREHENSIVE METABOLIC 81065 CALCIUM 9.8 MG/DL 2013 Unknown COMPREHENSIVE METABOLIC 30755 POTASSIUM 3.5 MMOL/L 08/27 Unknown COMPREHENSIVE METABOLIC 52379 PROT TOT 6.8 GM/DL 2013 Unknown COMPREHENSIVE METABOLIC 62737 Glucose 90 MG/DL 2013 Unknown COMPREHENSIVE METABOLIC 21863 BICARB 34 MMOL/L 2013 Unknown COMPREHENSIVE METABOLIC 51313 ANION GAP 5 MEQ/L 2013 Unknown LIPASE 39034 LIPASE 11 IU/L 07/21/2014 Unknown AMYLASE 06415 AMYLASE 39 IU/L 07/21/2014 Unknown HEMOGLOBIN A1C (GLYCOSYLATED) 9765781 A1C HPLC 65454-2 6.2 % 03/05/2013 Unknown THYROID STIMULATING HORMONE 29961 TSH 6.986 uIU/ML 03/05/2013 Unknown COMPLETE BLOOD COUNT 2158372 WBC 12.7 10e9/L 013 Unknown COMPLETE BLOOD COUNT 7236919 RBC 4.53 10e12/L 2012 Unknown COMPLETE BLOOD COUNT 0897026 HGB 14.7 g/dL 3 Unknown COMPLETE BLOOD COUNT 6693795 HCT DET 43.1 % 3 Unknown COMPLETE BLOOD COUNT 3083828 MCV 95.1 fL 3 Unknown COMPLETE BLOOD COUNT 9382632 MCH 32.5 pg 3 Unknown COMPLETE BLOOD COUNT 8534301 MCHC 34.1 g/dL 3 Unknown COMPLETE BLOOD COUNT 4910306 PLT 346 10e9/L 03/05/20 13 Unknown COMPLETE BLOOD COUNT 1549270 MPV 9.5 fL 3 Unknown COMPLETE BLOOD COUNT 5968672 CADEN % 67.6 % 3 Unknown COMPLETE BLOOD COUNT 4068200 LY % 22.1 % 3 Unknown COMPLETE BLOOD COUNT 3953431 MON % 6.6 % 3 Unknown COMPLETE BLOOD COUNT 1303014 EOS % 3.3 % 3 Unknown COMPLETE BLOOD COUNT 1943284 BASO % 0.4 % 3 Unknown COMPLETE BLOOD COUNT [id number] RDW 14.0 % 3 Unknown COMPLETE BLOOD COUNT 3475684 ABS CADEN 8.59 10e9/L 013 Unknown COMPLETE BLOOD COUNT 5688926 ABS LYMPH 2.81 10e9/L 013 Unknown COMPLETE BLOOD COUNT 3126554 ABS MONO 0.84 10e9/L 013 Unknown COMPLETE BLOOD COUNT [id number] ABS EOS 0.42 10e9/L 013 Unknown COMPLETE BLOOD COUNT 9466153 ABS BASO 0.05 10e9/L 013 Unknown COMPLETE BLOOD COUNT [id number] RDW-SD 46.0 fL 3 Unknown FREE T4 36346 FREE T4 1.14 NG/DL 03/05/2013 Unknown COMPREHENSIVE METABOLIC 55263 AST 17 U/L 2012 Unknown COMPREHENSIVE METABOLIC 13150 ALT 12 IU/L 2012 Unknown COMPREHENSIVE METABOLIC 12644 BUN 24 MG/DL 2012 Unknown COMPREHENSIVE METABOLIC 52640 ALBUMIN 4.2 GM/DL 2012 Unknown COMPREHENSIVE METABOLIC 07132 CHLORIDE 93 MMOL/L 2012 Unknown COMPREHENSIVE METABOLIC 76593 BILI TOT 0.5 MG/DL 2012 Unknown COMPREHENSIVE METABOLIC 14769 ALK PHOS 75 U/L 2012 Unknown COMPREHENSIVE METABOLIC 82727 SODIUM 141 MMOL/L 03/05 Unknown COMPREHENSIVE METABOLIC 07056 CREATININE 1.36 MG/DL 02/09 Unknown COMPREHENSIVE METABOLIC 45063 CALCIUM 9.2 MG/DL 2012 Unknown COMPREHENSIVE METABOLIC 30830 POTASSIUM 3.1 MMOL/L 03/05 Unknown COMPREHENSIVE METABOLIC 25449 PROT TOT 6.9 GM/DL 2012 Unknown COMPREHENSIVE METABOLIC 86693 Glucose 123 MG/DL 2012 Unknown COMPREHENSIVE METABOLIC 26784 BICARB 36 MMOL/L 2012 Unknown COMPREHENSIVE METABOLIC 97395 ANION GAP 12 MEQ/L 2012 Unknown GFR CALC 5003015 GFR AA 51.0L ML/MIN 03/05/2013 Unknow n GFR CALC 9787004 GFR NON-AA 42.0L ML/MIN 03/05/2013 Unkno wn COMPREHENSIVE METABOLIC 05652 AST 14 U/L 2012 Unknown COMPREHENSIVE METABOLIC 04413 ALT 11 IU/L 2012 Unknown COMPREHENSIVE METABOLIC 84408 BUN 16 MG/DL 2012 Unknown COMPREHENSIVE METABOLIC 36446 ALBUMIN 4.2 GM/DL 2012 Unknown COMPREHENSIVE METABOLIC 01306 CHLORIDE 98 MMOL/L 2012 Unknown COMPREHENSIVE METABOLIC 71762 BILI TOT 0.4 MG/DL 2012 Unknown COMPREHENSIVE METABOLIC 20203 ALK PHOS 77 U/L 2012 Unknown COMPREHENSIVE METABOLIC 85922 SODIUM 139 MMOL/L 09/25 Unknown COMPREHENSIVE METABOLIC 50411 CREATININE 0.86 MG/DL 09/10 Unknown COMPREHENSIVE METABOLIC 16937 CALCIUM 9.5 MG/DL 2012 Unknown COMPREHENSIVE METABOLIC 50476 POTASSIUM 3.8 MMOL/L 09/25 Unknown COMPREHENSIVE METABOLIC 32562 PROT TOT 6.8 GM/DL 2012 Unknown COMPREHENSIVE METABOLIC 69874 Glucose 91 MG/DL 2012 Unknown COMPREHENSIVE METABOLIC 52203 BICARB 32 MMOL/L 2012 Unknown COMPREHENSIVE METABOLIC 28677 ANION GAP 9 MEQ/L 2012 Unknown FREE T4 91525 FREE T4 0.98 NG/DL 09/25/2012 Unknown THYROID STIMULATING HORMONE 78142 TSH 1.736 uIU/ML 09/25/2012 Unknown C-REACTIVE PROTEIN (CRP) QUANT 32595 CRP 2.3 MG/DL 09/25/2012 Unknown COMPLETE BLOOD COUNT [id number] WBC 11.9 10e9/L 013 Unknown COMPLETE BLOOD COUNT 4102749 RBC 4.87 10e12/L 2012 Unknown COMPLETE BLOOD COUNT 3446930 HGB 15.1 g/dL 3 Unknown COMPLETE BLOOD COUNT [id number] HCT DET 44.8 % 3 Unknown COMPLETE BLOOD COUNT [id number] MCV 92.0 fL 3 Unknown COMPLETE BLOOD COUNT [id number] MCH 31.0 pg 3 Unknown COMPLETE BLOOD COUNT [id number] MCHC 33.7 g/dL 3 Unknown COMPLETE BLOOD COUNT [id number] PLT 343 10e9/L 09/25/19 13 Unknown COMPLETE BLOOD COUNT [id number] MPV 9.0 fL 3 Unknown COMPLETE BLOOD COUNT [id number] CADEN % 68.2 % 3 Unknown COMPLETE BLOOD COUNT [id number] LY % 22.4 % 3 Unknown COMPLETE BLOOD COUNT [id number] MON % 6.4 % 3 Unknown COMPLETE BLOOD COUNT [id number] EOS % 2.7 % 3 Unknown COMPLETE BLOOD COUNT [id number] BASO % 0.3 % 3 Unknown COMPLETE BLOOD COUNT [id number] RDW 13.8 % 3 Unknown COMPLETE BLOOD COUNT [id number] ABS CADEN 8.12 10e9/L 013 Unknown COMPLETE BLOOD COUNT [id number] ABS LYMPH 2.67 10e9/L 013 Unknown COMPLETE BLOOD COUNT [id number] ABS MONO 0.76 10e9/L 013 Unknown COMPLETE BLOOD COUNT [id number] ABS EOS 0.32 10e9/L 013 Unknown COMPLETE BLOOD COUNT [id number] ABS BASO 0.04 10e9/L 013 Unknown COMPLETE BLOOD COUNT [id number] RDW-SD 45.6 fL 3 Unknown GFR CALC [id number] GFR AA >60 ML/MIN 09/25/2012 Unknown GFR CALC [id number] GFR NON-AA >60 ML/MIN 09/25/2012 Unknown ERYTHROCYTE SEDIMENTATION RATE 83675 ESR 19 MM/HR 05/06/2012 Unknown VITAMIN B 12 FOLIC ACID [id number]|[id number] VIT B 12 922 PG/ML 04/11 Unknown VITAMIN B 12 FOLIC ACID 20092|[id number] FOLIC ACID 13.6 NG/ML Unknown URIC ACID 62392 URIC ACID 7.8 MG/DL 05/06/2012 Unknown COMPLETE BLOOD COUNT 58606 WBC 11.9 10e9/L 012 Unknown COMPLETE BLOOD COUNT 89653 RBC 5.30 10e12/L 2011 Unknown COMPLETE BLOOD COUNT 218[address] HGB 16.6 g/dL 2 Unknown COMPLETE BLOOD COUNT 89776 HCT DET 47.2 % 2 Unknown COMPLETE BLOOD COUNT 28733 MCV 89.1 fL 2 Unknown COMPLETE BLOOD COUNT 28653 MCH 31.3 pg 2 Unknown COMPLETE BLOOD COUNT 83317 MCHC 35.2 g/dL 2 Unknown COMPLETE BLOOD COUNT 06430 PLT 362 10e9/L 05/06/20 12 Unknown COMPLETE BLOOD COUNT 21534 MPV 9.4 fL 2 Unknown COMPLETE BLOOD COUNT 74033 CADEN % 68.2 % 2 Unknown COMPLETE BLOOD COUNT 58426 LY % 22.0 % 2 Unknown COMPLETE BLOOD COUNT 05741 MON % 6.9 % 2 Unknown COMPLETE BLOOD COUNT 49428 EOS % 2.6 % 2 Unknown COMPLETE BLOOD COUNT 13522 BASO % 0.3 % 2 Unknown COMPLETE BLOOD COUNT 05553 RDW 12.8 % 2 Unknown COMPLETE BLOOD COUNT 40192 ABS CADEN 8.12 10e9/L 012 Unknown COMPLETE BLOOD COUNT 90592 ABS LYMPH 2.62 10e9/L 012 Unknown COMPLETE BLOOD COUNT 41414 ABS MONO 0.82 10e9/L 012 Unknown COMPLETE BLOOD COUNT 12673 ABS EOS 0.31 10e9/L 012 Unknown COMPLETE BLOOD COUNT 84020 ABS BASO 0.04 10e9/L 012 Unknown COMPLETE BLOOD COUNT 61807 RDW-SD 41.5 fL 2 Unknown GFR CALC [id number] GFR AA >60 ML/MIN 05/06/2012 Unknown GFR CALC [id number] GFR NON-AA 58.0L ML/MIN 05/06/2012 Unkno wn FREE T4 32256 FREE T4 1.15 NG/DL 05/06/2012 Unknown THYROID STIMULATING HORMONE 99653 TSH 1.568 uIU/ML 05/06/2012 Unknown COMPREHENSIVE METABOLIC 37196 AST 20 U/L 2011 Unknown COMPREHENSIVE METABOLIC 58948 ALT 12 IU/L 2011 Unknown COMPREHENSIVE METABOLIC 50463 BUN 20 MG/DL 2011 Unknown COMPREHENSIVE METABOLIC 49483 ALBUMIN 4.5 GM/DL 2011 Unknown COMPREHENSIVE METABOLIC 35968 CHLORIDE 91 MMOL/L 2011 Unknown COMPREHENSIVE METABOLIC 69031 BILI TOT 0.4 MG/DL 2011 Unknown COMPREHENSIVE METABOLIC 06499 ALK PHOS 73 U/L 2011 Unknown COMPREHENSIVE METABOLIC 98926 SODIUM 139 MMOL/L 05/06 Unknown COMPREHENSIVE METABOLIC 87429 CREATININE 1.02 MG/DL 04/11 Unknown COMPREHENSIVE METABOLIC 53764 CALCIUM 9.7 MG/DL 2011 Unknown COMPREHENSIVE METABOLIC 73727 POTASSIUM 3.1 MMOL/L 05/06 Unknown COMPREHENSIVE METABOLIC 27913 PROT TOT 7.3 GM/DL 2011 Unknown COMPREHENSIVE METABOLIC 88055 Glucose 118 MG/DL 2011 Unknown COMPREHENSIVE METABOLIC 23434 BICARB 33 MMOL/L 2011 Unknown COMPREHENSIVE METABOLIC 96570 ANION GAP 15 MEQ/L 2011 Unknown Procedures Procedure Codes Date COMPREHEN METABOLIC PANEL CPT-4: 41694 02/12/2020 A1C HPLC CPT-4: 08111 02/12/2020 ROUTINE VENIPUNCTURE CPT-4: 20829 09/29/2019 URINALYSIS NONAUTO W/O SCOPE CPT-4: 52960 09/29/2019 COMPREHEN METABOLIC PANEL CPT-4: 97863 09/29/2019 LIPID PANEL CPT-4: 63216 09/29/2019 A1C HPLC CPT-4: 10985 09/29/2019 ASSAY OF FREE THYROXINE CPT-4: 69569 09/29/2019 ASSAY THYROID STIM HORMONE CPT-4: 67006 09/29/2019 COMPLETE CBC W/AUTO DIFF WBC CPT-4: 89017 09/29/2019 URINALYSIS NONAUTO W/O SCOPE CPT-4: 29190 09/30/2018 MICROALBUMIN QUANTITATIVE CPT-4: 27994 09/30/2018 CEFTRIAXONE SODIUM INJECTION CPT-4: J0696 06/19/2018 THER/PROPH/DIAG INJ SC/IM CPT-4: 03643 06/19/2018 CEFTRIAXONE SODIUM INJECTION CPT-4: J0696 06/17/2018 THER/PROPH/DIAG INJ SC/IM CPT-4: 12335 06/17/2018 THER/PROPH/DIAG INJ SC/IM CPT-4: 19510 05/16/2018 KETOROLAC TROMETHAMINE INJ CPT-4: J1885 05/16/2018 ONDANSETRON HCL INJECTION CPT-4: J2405 05/16/2018 THER/PROPH/DIAG INJ SC/IM CPT-4: 66820 05/16/2018 ROUTINE VENIPUNCTURE CPT-4: 11676 03/20/2018 COMPREHEN METABOLIC PANEL CPT-4: 23878 03/20/2018 DEXAMETHASONE SODIUM PHOS CPT-4: J1100 02/11/2018 THER/PROPH/DIAG INJ SC/IM CPT-4: 58961 02/11/2018 TRIAMCINOLONE ACET INJ NOS CPT-4: J3301 02/11/2018 CEFTRIAXONE SODIUM INJECTION CPT-4: J0696 02/01/2018 THER/PROPH/DIAG INJ SC/IM CPT-4: 90525 02/01/2018 CEFTRIAXONE SODIUM INJECTION CPT-4: J0696 01/30/2018 THER/PROPH/DIAG INJ SC/IM CPT-4: 24482 01/30/2018 ROUTINE VENIPUNCTURE CPT-4: 48819 12/10/2017 ASSAY OF FREE THYROXINE CPT-4: 34141 12/10/2017 ASSAY THYROID STIM HORMONE CPT-4: 97273 12/10/2017 COMPREHEN METABOLIC PANEL CPT-4: 59741 12/10/2017 COMPLETE CBC W/AUTO DIFF WBC CPT-4: 96773 12/10/2017 LIPID PANEL CPT-4: 36341 12/10/2017 A1C HPLC CPT-4: 11448 12/10/2017 CEFTRIAXONE SODIUM INJECTION CPT-4: J0696 12/10/2017 THER/PROPH/DIAG INJ SC/IM CPT-4: 99327 12/10/2017 CEFTRIAXONE SODIUM INJECTION CPT-4: J0696 12/07/2017 THER/PROPH/DIAG INJ SC/IM CPT-4: 71749 12/07/2017 DEXAMETHASONE SODIUM PHOS CPT-4: J1100 12/07/2017 THER/PROPH/DIAG INJ SC/IM CPT-4: 65080 12/07/2017 CEFTRIAXONE SODIUM INJECTION CPT-4: J0696 10/08/2017 THER/PROPH/DIAG INJ SC/IM CPT-4: 53106 10/08/2017 CEFTRIAXONE SODIUM INJECTION CPT-4: J0696 09/21/2017 THER/PROPH/DIAG INJ SC/IM CPT-4: 71034 09/21/2017 CEFTRIAXONE SODIUM INJECTION CPT-4: J0696 09/20/2017 THER/PROPH/DIAG INJ SC/IM CPT-4: 21489 09/20/2017 REMOVAL OF NAIL PLATE CPT-4: 25312 08/29/2017 THER/PROPH/DIAG INJ SC/IM CPT-4: 20128 08/29/2017 TRIAMCINOLONE ACET INJ NOS CPT-4: J3301 08/29/2017 CEFTRIAXONE SODIUM INJECTION CPT-4: J0696 08/29/2017 THER/PROPH/DIAG INJ SC/IM CPT-4: 94189 08/29/2017 DESTRUCT PREMALG LESION (Cryosurgery) CPT-4: 05011 ROUTINE VENIPUNCTURE CPT-4: 98662 06/27/2017 ASSAY OF FREE THYROXINE CPT-4: 20126 06/27/2017 ASSAY THYROID STIM HORMONE CPT-4: 06054 06/27/2017 COMPREHEN METABOLIC PANEL CPT-4: 28777 06/27/2017 COMPLETE CBC W/AUTO DIFF WBC CPT-4: 25678 06/27/2017 EXC TR-EXT B9+REECE 0.5 CM< CPT-4: 04200 01/24/2017 THER/PROPH/DIAG INJ SC/IM CPT-4: 85973 08/02/2016 DEXAMETHASONE SODIUM PHOS CPT-4: J1100 08/02/2016 DESTRUCT PREMALG LESION (Cryosurgery) CPT-4: 75831 EXC TR-EXT B9+REECE 0.5 CM< CPT-4: 45802 08/01/2016 AEROBIC WOUND CULTURE & STN CPT-4: 85882 07/06/2016 CEFTRIAXONE SODIUM INJECTION CPT-4: J0696 05/25/2016 THER/PROPH/DIAG INJ SC/IM CPT-4: 81236 05/25/2016 THER/PROPH/DIAG INJ SC/IM CPT-4: 45827 04/26/2016 DEXAMETHASONE SODIUM PHOS CPT-4: J1100 04/26/2016 CEFTRIAXONE SODIUM INJECTION CPT-4: J0696 04/26/2016 THER/PROPH/DIAG INJ SC/IM CPT-4: 77471 04/26/2016 THER/PROPH/DIAG INJ SC/IM CPT-4: 05173 02/09/2016 TRIAMCINOLONE ACET INJ NOS CPT-4: J3301 02/09/2016 URINALYSIS NONAUTO W/O SCOPE CPT-4: 41596 01/24/2016 URINE CULTURE/ COLONY COUNT CPT-4: 26263 01/24/2016 THER/PROPH/DIAG INJ SC/IM CPT-4: 11164 12/08/2015 TRIAMCINOLONE ACET INJ NOS CPT-4: J3301 12/08/2015 THER/PROPH/DIAG INJ SC/IM CPT-4: 04962 10/07/2015 TRIAMCINOLONE ACET INJ NOS CPT-4: J3301 10/07/2015 DESTRUCT PREMALG LESION (Cryosurgery) CPT-4: 46128 THER/PROPH/DIAG INJ SC/IM CPT-4: 90330 03/16/2015 METHYLPREDNISOLONE 40 MG INJ CPT-4: J1030 03/16/2015 DESTRUCT PREMALG LESION (Cryosurgery) CPT-4: 62287 THER/PROPH/DIAG INJ SC/IM CPT-4: 03400 09/11/2014 METHYLPREDNISOLONE 40 MG INJ CPT-4: J1030 09/11/2014 TRIAMCINOLONE ACET INJ NOS CPT-4: J3301 09/11/2014 CEFTRIAXONE SODIUM INJECTION CPT-4: J0696 09/11/2014 THER/PROPH/DIAG INJ SC/IM CPT-4: 37176 09/11/2014 ROUTINE VENIPUNCTURE CPT-4: 27403 08/27/2014 COMPREHEN METABOLIC PANEL CPT-4: 73134 08/27/2014 COMPLETE CBC W/AUTO DIFF WBC CPT-4: 14069 08/27/2014 LIPID PANEL CPT-4: 74424 08/27/2014 ROUTINE VENIPUNCTURE CPT-4: 45563 07/21/2014 ASSAY OF AMYLASE CPT-4: 81304 07/21/2014 ASSAY OF LIPASE CPT-4: 10958 07/21/2014 THER/PROPH/DIAG INJ SC/IM CPT-4: 66687 07/15/2014 TRIAMCINOLONE ACET INJ NOS CPT-4: J3301 07/15/2014 ROUTINE VENIPUNCTURE CPT-4: 24189 05/14/2014 ASSAY OF FREE THYROXINE CPT-4: 84445 05/14/2014 ASSAY THYROID STIM HORMONE CPT-4: 39997 05/14/2014 COMPREHEN METABOLIC PANEL CPT-4: 72252 05/14/2014 COMPLETE CBC W/AUTO DIFF WBC CPT-4: 05933 05/14/2014 LIPID PANEL CPT-4: 92273 05/14/2014 CEFTRIAXONE SODIUM INJECTION CPT-4: J0696 04/21/2014 THER/PROPH/DIAG INJ SC/IM CPT-4: 15653 04/21/2014 THER/PROPH/DIAG INJ SC/IM CPT-4: 13015 04/21/2014 TRIAMCINOLONE ACET INJ NOS CPT-4: J3301 04/21/2014 THER/PROPH/DIAG INJ SC/IM CPT-4: 67133 03/04/2014 METHYLPREDNISOLONE 40 MG INJ CPT-4: J1030 03/04/2014 TRIAMCINOLONE ACET INJ NOS CPT-4: J3301 03/04/2014 CEFTRIAXONE SODIUM INJECTION CPT-4: J0696 03/04/2014 THER/PROPH/DIAG INJ SC/IM CPT-4: 40706 03/04/2014 TDAP VACCINE 7 YRS/> IM CPT-4: 14668 02/27/2014 IMMUNIZATION ADMIN CPT-4: 90142 02/27/2014 DESTRUCT PREMALG LESION (Cryosurgery) CPT-4: 73337 DESTRUCT PREMALG LES 2-14 CPT-4: 93305 01/13/2014 THER/PROPH/DIAG INJ SC/IM CPT-4: 78205 10/21/2013 METHYLPREDNISOLONE 40 MG INJ CPT-4: J1030 10/21/2013 TRIAMCINOLONE ACET INJ NOS CPT-4: J3301 10/21/2013 CEFTRIAXONE SODIUM INJECTION CPT-4: J0696 08/27/2013 THER/PROPH/DIAG INJ SC/IM CPT-4: 23495 08/27/2013 THER/PROPH/DIAG INJ SC/IM CPT-4: 00847 08/27/2013 METHYLPREDNISOLONE 40 MG INJ CPT-4: J1030 08/27/2013 TRIAMCINOLONE ACET INJ NOS CPT-4: J3301 08/27/2013 THER/PROPH/DIAG INJ SC/IM CPT-4: 12797 06/23/2013 METHYLPREDNISOLONE 40 MG INJ CPT-4: J1030 06/23/2013 TRIAMCINOLONE ACET INJ NOS CPT-4: J3301 06/23/2013 THER/PROPH/DIAG INJ SC/IM CPT-4: 61511 05/26/2013 METHYLPREDNISOLONE 40 MG INJ CPT-4: J1030 05/26/2013 TRIAMCINOLONE ACET INJ NOS CPT-4: J3301 05/26/2013 ROUTINE VENIPUNCTURE CPT-4: 00324 03/05/2013 ASSAY OF FREE THYROXINE CPT-4: 05330 03/05/2013 ASSAY THYROID STIM HORMONE CPT-4: 08218 03/05/2013 COMPREHEN METABOLIC PANEL CPT-4: 24561 03/05/2013 COMPLETE CBC W/AUTO DIFF WBC CPT-4: 88397 03/05/2013 A1C GLYCOSYLATED HEMOGLOBIN TEST CPT-4: 32922 013 DRAIN/INJECT JOINT/BURSA CPT-4: 45947 12/04/2012 METHYLPREDNISOLONE 40 MG INJ CPT-4: J1030 12/04/2012 TRIAMCINOLONE ACET INJ NOS CPT-4: J3301 12/04/2012 CEFTRIAXONE SODIUM INJECTION CPT-4: J0696 11/21/2012 THER/PROPH/DIAG INJ SC/IM CPT-4: 50354 11/21/2012 THER/PROPH/DIAG INJ SC/IM CPT-4: 76481 10/14/2012 METHYLPREDNISOLONE 40 MG INJ CPT-4: J1030 10/14/2012 TRIAMCINOLONE ACET INJ NOS CPT-4: J3301 10/14/2012 URINALYSIS NONAUTO W/O SCOPE CPT-4: 10867 09/27/2012 ROUTINE VENIPUNCTURE CPT-4: 85438 09/25/2012 ASSAY OF FREE THYROXINE CPT-4: 58874 09/25/2012 ASSAY THYROID STIM HORMONE CPT-4: 25832 09/25/2012 COMPREHEN METABOLIC PANEL CPT-4: 29641 09/25/2012 COMPLETE CBC W/AUTO DIFF WBC CPT-4: 26206 09/25/2012 C-REACTIVE PROTEIN CPT-4: 12717 09/25/2012 THER/PROPH/DIAG INJ SC/IM CPT-4: 51507 08/29/2012 METHYLPREDNISOLONE 40 MG INJ CPT-4: J1030 08/29/2012 TRIAMCINOLONE ACET INJ NOS CPT-4: J3301 08/29/2012 DESTRUCT PREMALG LESION (Cryosurgery) CPT-4: 89368 THER/PROPH/DIAG INJ SC/IM CPT-4: 21637 05/06/2012 METHYLPREDNISOLONE 40 MG INJ CPT-4: J1030 05/06/2012 TRIAMCINOLONE ACET INJ NOS CPT-4: J3301 05/06/2012 VITAMIN B 12 FOLIC ACID CPT-4: 29576|53616 05/06/2012 RBC SED RATE AUTOMATED CPT-4: 15132 05/06/2012 ROUTINE VENIPUNCTURE CPT-4: 92779 05/06/2012 ASSAY OF FREE THYROXINE CPT-4: 03173 05/06/2012 ASSAY THYROID STIM HORMONE CPT-4: 87317 05/06/2012 COMPREHEN METABOLIC PANEL CPT-4: 48598 05/06/2012 COMPLETE CBC W/AUTO DIFF WBC CPT-4: 13576 05/06/2012 ASSAY OF BLOOD/URIC ACID CPT-4: 35574 05/06/2012 THER/PROPH/DIAG INJ SC/IM CPT-4: 33296 03/19/2012 KETOROLAC TROMETHAMINE INJ CPT-4: J1885 03/19/2012 KETOROLAC TROMETHAMINE INJ CPT-4: J1885 01/30/2012 THER/PROPH/DIAG INJ SC/IM CPT-4: 79741 01/30/2012 PROMETHAZINE HCL INJECTION CPT-4: J2550 01/30/2012 THER/PROPH/DIAG INJ SC/IM CPT-4: 72760 01/24/2012 METHYLPREDNISOLONE 40 MG INJ CPT-4: J1030 01/24/2012 TRIAMCINOLONE ACET INJ NOS CPT-4: J3301 01/24/2012 THER/PROPH/DIAG INJ SC/IM CPT-4: 55882 09/13/2011 KETOROLAC TROMETHAMINE INJ CPT-4: J1885 09/13/2011 THER/PROPH/DIAG INJ SC/IM CPT-4: 61209 09/13/2011 PROMETHAZINE HCL INJECTION CPT-4: J2550 09/13/2011 CEFTRIAXONE SODIUM INJECTION CPT-4: J0696 07/20/2011 THER/PROPH/DIAG INJ SC/IM CPT-4: 63771 07/20/2011 THER/PROPH/DIAG INJ SC/IM CPT-4: 36595 07/20/2011 METHYLPREDNISOLONE INJECTION CPT-4: J2930 07/20/2011 URINALYSIS NONAUTO W/O SCOPE CPT-4: 25879 05/09/2011 CEFTRIAXONE SODIUM INJECTION CPT-4: J0696 05/09/2011 THER/PROPH/DIAG INJ SC/IM CPT-4: 87691 05/09/2011 THER/PROPH/DIAG INJ SC/IM CPT-4: 49126 05/09/2011 PROMETHAZINE HCL INJECTION CPT-4: J2550 05/09/2011 HYDRATION IV INFUSION INIT CPT-4: 32871 05/09/2011 DESTRUCT PREMALG LESION (Cryosurgery) CPT-4: 83838 DESTRUCT PREMALG LES 2-14 CPT-4: 45311 07/19/2010 REMOVAL OF SKIN TAGS <W/15 CPT-4: 30557 05/30/2010 THER/PROPH/DIAG INJ SC/IM CPT-4: 71228 04/05/2010 CEFTRIAXONE SODIUM INJECTION CPT-4: J0696 04/05/2010 TRIAMCINOLONE ACET INJ NOS CPT-4: J3301 04/05/2010 METHYLPREDNISOLONE 40 MG INJ CPT-4: J1030 04/05/2010 THER/PROPH/DIAG INJ SC/IM CPT-4: 82652 04/05/2010 TRIAMCINOLONE ACET INJ NOS CPT-4: J3301 03/09/2010 METHYLPREDNISOLONE 40 MG INJ CPT-4: J1030 03/09/2010 THER/PROPH/DIAG INJ SC/IM CPT-4: 62600 03/09/2010 THER/PROPH/DIAG INJ SC/IM CPT-4: 73118 03/09/2010 CEFTRIAXONE SODIUM INJECTION CPT-4: J0696 03/09/2010 [...] 1: 132/80 Code: 8480-6 BMI: 35.8 Code: 34411-5 Heart Rate 1: 88 bpm Height: 5'4" Respiratory Rate: 20 bpm SpO2: 95% Tempera ture: 36.9 (C) / 98.5 (F) Weight: 210 lbs 05/28/2019 Blood Pressure 1: 126/82 Code: 8480-6 BMI: 35.0 Code: 33475-2 Heart Rate 1: 88 bpm Height: 5'4" [...] 1: 128/90 Code: 8480-6 BMI: 37.2 Code: 98152-6 Heart Rate 1: 84 bpm Height: 5'4" Respiratory Rate: 20 bpm SpO2: 95% Tempera ture: 36.6 (C) / 97.8 (F) Weight: 217 lbs 08/27/2018 Blood Pressure 1: 128/88 Code: 8480-6 BMI: 38.3 Code: 09858-3 Heart Rate 1: 84 bpm Height: 5'4" [...] 1: 119/72 Code: 8480-6 BMI: 37.4 Code: 12828-2 Heart Rate 1: 82 bpm Height: 5'4" Respiratory Rate: 12 bpm SpO2: 94% Tempera ture: 35.2 (C) / 95.4 (F) Weight: 218 lbs 12/18/2017 Blood Pressure 1: 128/86 Code: 8480-6 BMI: 37.8 Code: 10312-4 Heart Rate 1: 84 bpm Height: 5'4" [...] 1: 128/82 Code: 8480-6 BMI: 35.5 Code: 37631-6 Heart Rate 1: 84 bpm Height: 5'4" [...] 1: 128/82 Code: 8480-6 BMI: 30.2 Code: 26939-8 Heart Rate 1: 80 bpm Height: 5'4" [...] 1: 128/86 Code: 8480-6 BMI: 32.8 Code: 76118-4 Heart Rate 1: 66 bpm Height: 5'4" Respiratory Rate: 18 bpm Temperature: 36 .3 (C) / 97.3 (F) Weight: 191 lbs 06/23/2013 Blood Pressure 1: 132/94 Code: 8480-6 BMI: 34.0 Code: 68660-8 Heart Rate 1: 84 bpm Height: 5'4" Respiratory Rate: 20 bpm Temperature: 36 .8 (C) / 98.2 (F) Weight: 198 lbs 05/26/2013 Blood Pressure 1: 114/80 Code: 8480-6 BMI: 35.0 Code: 83238-4 Heart Rate 1: 80 bpm Height: 5'4" Respiratory Rate: 20 bpm Temperature: 36 .4 (C) / 97.6 (F) Weight: 204 lbs 04/16/2013 Blood Pressure 1: 114/82 Code: 8480-6 BMI: 36.7 Code: 54821-4 Heart Rate 1: 84 bpm Height: 5'4" Respiratory Rate: 20 bpm Temperature: 36 .7 (C) / 98.0 (F) Weight: 214 lbs 03/05/2013 Blood Pressure 1: 136/90 Code: 8480-6 BMI: 37.1 Code: 65672-9 Heart Rate 1: 84 bpm Height: 5'4" [...] 1: 168/114 Code: 8480-6 BMI: 36.2 Code: 84190-4 Heart Rate 1: 104 bpm Height: 5'4" Respiratory Rate: 20 bpm Temperature: 36 .8 (C) / 98.2 (F) Weight: 211 lbs 11/22/2012 Blood Pressure 1: 128/90 Code: 8480-6 Heart Rate 1: 88 bpm Respiratory Rate: 20 bpm SpO2: 96% Temperature: 36.8 (C) / 98.2 (F) 11/21/2012 Blood Pressure 1: 146/100 Code: 8480-6 BMI: 35.7 Code: 49298-0 Heart Rate 1: 96 bpm Height: 5'4" [...] 1: 138/100 Code: 8480-6 BMI: 35.7 Code: 35966-7 Heart Rate 1: 96 bpm Height: 5'4" Respiratory Rate: 20 bpm Temperature: 36 .8 (C) / 98.2 (F) Weight: 208 lbs 05/06/2012 Blood Pressure 1: 154/102 Code: 8480-6 BMI: 34.7 Code: 35588-3 Heart Rate 1: 116 bpm Height: 5'4" Respiratory Rate: 20 bpm Temperature: 36 .8 (C) / 98.2 (F) Weight: 202 lbs 04/03/2012 Blood Pressure 1: 134/94 Code: 8480-6 BMI: 34.8 Code: 06941-2 Heart Rate 1: 108 bpm Height: 5'4" Respiratory Rate: 20 bpm Temperature: 36 .8 (C) / 98.2 (F) Weight: 203 lbs 03/19/2012 Blood Pressure 1: 148/106 Code: 8480-6 BMI: 35.0 Code: 82320-6 Heart Rate 1: 100 bpm Height: 5'4" Respiratory Rate: 20 bpm Temperature: 36 .6 (C) / 97.9 (F) Weight: 204 lbs 02/22/2012 Blood Pressure 1: 146/94 Code: 8480-6 He art Rate 1: 88 bpm 02/21/2012 Blood Pressure 1: 172/120 Code: 8480-6 B lood Pressure 2: 152/106 Code: 8480-6 Heart Rate 1: 116 bpm 02/20/2012 Blood Pressure 1: 160/100 Code: 8480-6 BMI: 32.0 Code: 29809-2 Heart Rate 1: 84 bpm Height: 5'7" Temperature: 36.5 (C) / 97.7 (F) Weight: 204 lbs 01/30/2012 Blood Pressure 1: 152/110 Code: 8480-6 BMI: 32.0 Code: 84535-8 Heart Rate 1: 116 bpm Height: 5'7" Respiratory Rate: 20 bpm Temperature: 37 .0 (C) / 98.6 (F) Weight: 204 lbs 01/24/2012 Blood Pressure 1: 146/100 Code: 8480-6 BMI: 32.0 Code: 98928-5 Heart Rate 1: 100 bpm Height: 5'7" Respiratory Rate: 20 bpm Temperature: 36 .7 (C) / 98.0 (F) Weight: 204 lbs 01/10/2012 Blood Pressure 1: 156/94 Code: 8480-6 BMI: 32.6 Code: 84389-4 Heart Rate 1: 72 bpm Height: 5'7" Respiratory Rate: 20 bpm Temperature: 36 .8 (C) / 98.2 (F) Weight: 208 lbs 12/11/2011 Blood Pressure 1: 146/100 Code: 8480-6 Heart Rat e 1: 116 bpm Height: 5'7" Respiratory Rate: 20 bpm Temperature: 36.9 (C) / 98.4 (F) We ight: 11/09/2011 Blood Pressure 1: 148/96 Code: 8480-6 BMI: 32.1 Code: 58343-9 Heart Rate 1: 116 bpm Height: 5'7" Respiratory Rate: 20 bpm Temperature: 36 .7 (C) / 98.0 (F) Weight: 205 lbs 09/13/2011 Blood Pressure 1: 126/88 Code: 8480-6 Heart Rate 1: 88 bpm Height: 5'7" Respiratory Rate: 20 bpm Temperature: 36.9 (C) / 98.4 (F) We ight: 08/31/2011 Blood Pressure 1: 118/82 Code: 8480-6 BMI: 32.0 Code: 05438-4 Heart Rate 1: 80 bpm Height: 5'7" Temperature: 36.4 (C) / 97.6 (F) Weight: 204 lbs 07/06/2011 Blood Pressure 1: 128/86 Code: 8480-6 BMI: 30.9 Code: 84137-8 Heart Rate 1: 92 bpm Height: 5'7" Respiratory Rate: 20 bpm Temperature: 36 .9 (C) / 98.4 (F) Weight: 197 lbs 06/06/2011 Blood Pressure 1: 112/74 Code: 8480-6 BMI: 31.0 Code: 76623-6 Heart Rate 1: 72 bpm Height: 5'7" [...] 1: 128/92 Code: 8480-6 BMI: 33.6 Code: 98514-8 Heart Rate 1: 104 bpm Height: 5'4" [...] 08/16/2016 follow up 08/10/2016 1wk fwup/suture jovany [place] sore throat 08/02/2016 mole check 08/01/2016 arthralgia(s) [...] Check-up Encounters Encounter Performer Location Codes Date ([id number]) OFFICE/OUTPATIENT VISIT EST Diagnosis: Blister (nonthermal), right foot, initial encounter[ICD10: S90.821A] Diagnosis: Type 2 diabetes mellitus with hyperglycemia[ICD10: E11.65] Diagnosis: Lower extremity edema[ICD10: R60.0] Kathleen [facility] CPT-4: 27901 02/12/2020 ([id number]) OFFICE/OUTPATIENT VISIT EST Diagnosis: Essential (primary) hypertension[ICD10: I10] Diagnosis: Type 2 diabetes mellitus with hyperglycemia[ICD10: E11.65] Diagnosis: Allergic rhinitis[ICD10: J30.9] María Elena [facility] CPT-4: 81276 01/13/2020 ([id number]) OFFICE/OUTPATIENT VISIT EST Diagnosis: Type 2 diabetes mellitus with hyperglycemia[ICD10: E11.65] María Elena JUARES [facility] CPT-4: 42049 11/20/2019 ([id number]) OFFICE/OUTPATIENT VISIT EST Diagnosis: Ingrowing nail[ICD10: L60.0] Diagnosis: Type 2 diabetes mellitus with hyperglycemia[ICD10: E11.65] Kathleen Nadiamike [facility] CPT-4: 07966 10/07/2019 ([id number]) OFFICE/OUTPATIENT VISIT EST Diagnosis: DM w/o complication type II, uncontrolled[ICD10: E11.65] Diagnosis: Hypertriglyceridemia[ICD10: E78.1] Diagnosis: Essential hypertension[ICD10: I10] María Elena JEAN [facility] CPT-4: 14649 09/30/2019 ([id number]) NURSE/OUTPATIENT VISIT EST Diagnosis: Essential (primary) hypertension[ICD10: I10] Diagnosis: Cervicalgia[ICD10: M54.2] Diagnosis: Hyperglycemia, 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: R73.9] Diagnosis: Mixed hyperlipidemia[ICD10: E78.2] María Elena APPIAH DO [facility] CPT-4: 37040 09/29/2019 ([id number]) OFFICE/OUTPATIENT VISIT EST Diagnosis: Essential (primary) hypertension[ICD10: I10] Diagnosis: Fall from bed, sequela[ICD10: W06.XXXS] María Elena APPIAH DO [facility] CPT-4: 67917 05/28/2019 ([id number]) NURSE/OUTPATIENT VISIT EST Diagnosis: Essential (primary) hypertension[ICD10: I10] María Elena APPIAH DO [facility] CPT-4: 73020 05/19/2019 ([id number]) OFFICE/OUTPATIENT VISIT EST Diagnosis: Essential (primary) hypertension[ICD10: I10] Diagnosis: Type 2 diabetes mellitus with hyperglycemia[ICD10: E11.65] Diagnosis: Intervertebral disc disorders with radiculopathy, 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] Diagnosis: Hormone replacement therapy[ICD10: Z79.890] María Elena APPIAH [employer] [facility] CPT-4: 51006 01/22/2019 ([id number]) OFFICE/OUTPATIENT VISIT EST Diagnosis: Essential (primary) hypertension[ICD10: I10] Diagnosis: Type 2 diabetes mellitus with hyperglycemia[ICD10: E11.65] María Elena APPIAH DO [facility] CPT-4: 40781 09/30/2018 ([id number]) OFFICE/OUTPATIENT VISIT EST Diagnosis: Pain in left elbow[ICD10: M25.522] Diagnosis: Acute stress reaction[ICD10: F43.0] Diagnosis: Primary insomnia[ICD10: F51.01] Diagnosis: Abnormal weight gain[ICD10: R63.5] María Elena APPIAH [employer] [facility] CPT-4: 19350 08/27/2018 ([id number]) OFFICE/OUTPATIENT VISIT EST Diagnosis: Acute recurrent sinusitis, 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: J01.91] Diagnosis: Follicular disorder, 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: L73.9] Diagnosis: Tinea corporis[ICD10: B35.4] María Elena APPIAH DO [facility] CPT-4: 83856 08/09/2018 ([id number]) OFFICE/OUTPATIENT VISIT EST Diagnosis: Tinea corporis[ICD10: B35.4] Diagnosis: Anxiety disorder, 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: F41.9] Diagnosis: Menopausal and female climacteric states[ICD10: N95.1] María Elena APPIAH DO [facility] CPT-4: 03701 07/22/2018 ([id number]) NURSE/OUTPATIENT VISIT EST Diagnosis: Cellulitis of right toe[ICD10: L03.031] María Elena APPIAH DO [facility] CPT-4: 81379 06/19/2018 ([id number]) OFFICE/OUTPATIENT VISIT EST Diagnosis: Cellulitis of right toe[ICD10: L03.031] Kathleen APPIAH DO [facility] CPT-4: 25006 06/17/2018 ([id number]) OFFICE/OUTPATIENT VISIT EST Diagnosis: Migraine without aura, intractable, without status migrainosus[ICD10: G43.019] Diagnosis: Zoster without complications[ICD10: B02.9] Kathleen APPIAH DO [facility] CPT-4: 25025 05/16/2018 ([id number]) OFFICE/OUTPATIENT VISIT EST Diagnosis: Cellulitis of right lower limb[ICD10: L03.115] Kathleen APPIAH DO [facility] CPT-4: 64838 03/20/2018 ([id number]) OFFICE/OUTPATIENT VISIT EST Diagnosis: Cellulitis of right lower limb[ICD10: L03.115] Kathleen APPIAH DO [facility] CPT-4: 30624 03/18/2018 ([id number]) OFFICE/OUTPATIENT VISIT EST Diagnosis: Cellulitis of right lower limb[ICD10: L03.115] Kathleen APPIAH DO [facility] CPT-4: 62502 03/15/2018 ([id number]) OFFICE/OUTPATIENT VISIT EST Diagnosis: Acute sinusitis, 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: J01.90] Kathleen APPIAH DO [facility] CPT-4: 55257 02/11/2018 ([id number]) NURSE/OUTPATIENT VISIT EST Diagnosis: Otitis media, unspecified, right ear[ICD10: H66.91] María Elena APPIAH [facility] CPT-4: 99382 02/01/2018 ([id number]) OFFICE/OUTPATIENT VISIT EST Diagnosis: Acute suppurative otitis media without spontaneous rupture of ear drum, left ear[ICD10: H66.002] Diagnosis: Abnormal weight gain[ICD10: R63.5] Diagnosis: Intervertebral disc disorders with radiculopathy, 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] Kathleen APPIAH [employer] CPT-4: 99 214 01/30/2018 ([id number]) PREV VISIT EST AGE 40-64 Diagnosis: Encounter for general adult medical examination without abnormal findings[ICD10: Z00.00] Diagnosis: Essential (primary) hypertension[ICD10: I10] Diagnosis: Mixed hyperlipidemia[ICD10: E78.2] Diagnosis: Type 2 diabetes mellitus with hyperglycemia[ICD10: E11.65] Diagnosis: 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] María Elena APPIAH [facility] CPT-4: 21428 12/18/2017 ([id number]) OFFICE/OUTPATIENT VISIT EST Diagnosis: Cellulitis of right toe[ICD10: L03.031] Diagnosis: Mixed hyperlipidemia[ICD10: E78.2] Diagnosis: Essential (primary) hypertension[ICD10: I10] Diagnosis: Hyperglycemia, 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: R73.9] Diagnosis: Nontoxic goiter, 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] María Elena APPIAH [facility] CPT-4: 78697 12/10/2017 ([id number]) OFFICE/OUTPATIENT VISIT EST Diagnosis: Cellulitis of right toe[ICD10: L03.031] Diagnosis: Acute sinusitis, 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: J01.90] Kathleen APPIAH [facility] CPT-4: 94305 12/07/2017 OFFICE/OUTPATIENT VISIT EST Diagnosis: Acute maxillary sinusitis, 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: J01.00] Kathleen ORTAER DO [facility] CPT-4: 47280 10/08/2017 ([id number]) OFFICE/OUTPATIENT VISIT EST Diagnosis: Cellulitis of left toe[ICD10: L03.032] María Elena APPIAH DO [facility] CPT-4: 68551 09/21/2017 ([id number]) OFFICE/OUTPATIENT VISIT EST Diagnosis: Insomnia, 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: G47.00] Diagnosis: Major depressive disorder, single episode, 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: F32.9] Diagnosis: Anxiety disorder, 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: F41.9] Diagnosis: Cellulitis of left toe[ICD10: L03.032] Diagnosis: Snoring[ICD10: R06.83] Kathleen APPIAH DO [facility] CPT-4: 21514 09/20/2017 ([id number]) OFFICE/OUTPATIENT VISIT EST Diagnosis: Cellulitis of left toe[ICD10: L03.032] María Elena APPIAH [facility] CPT-4: 84296 07/19/2017 OFFICE/OUTPATIENT VISIT EST Diagnosis: Chronic sinusitis, 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: J32.9] Diagnosis: Generalized hyperhidrosis[ICD10: R61] Kathleen APPIAH [facility] CPT-4: 19561 06/27/2017 ([id number]) OFFICE/OUTPATIENT VISIT EST Diagnosis: Intervertebral disc disorders with radiculopathy, 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] Diagnosis: Primary insomnia[ICD10: F51.01] Diagnosis: Other fatigue[ICD10: R53.83] María Elena APPIAH DO [facility] CPT-4: 86065 04/10/2017 ([id number]) OFFICE/OUTPATIENT VISIT EST Diagnosis: Primary insomnia[ICD10: F51.01] Diagnosis: Localized edema[ICD10: R60.0] Diagnosis: 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] María Elena APPIAH DO [facility] CPT-4: 24490 12/13/2016 ([id number]) OFFICE/OUTPATIENT VISIT EST Diagnosis: Primary insomnia[ICD10: F51.01] Diagnosis: Cyanosis[ICD10: R23.0] María Elena Bazzi [facility] CPT-4: 44083 11/01/2016 ([id number]) PREV VISIT EST AGE 40-64 Diagnosis: Encounter for gynecological examination (general) (routine) without abnormal findings[ICD10: Z01.419] Diagnosis: Encounter for routine child health examination without abnormal findings[ICD10: Z00.129] María Elena APPIAH DO [employer] CPT-4: 40068 10/17/2016 ([id number]) OFFICE/OUTPATIENT VISIT EST Diagnosis: Other seasonal allergic rhinitis[ICD10: J30.2] María Elena APPIAH DO [employer] CPT-4: 83367 10/10/2016 ([id number]) OFFICE/OUTPATIENT VISIT EST Diagnosis: Pain in left arm[ICD10: M79.602] Diagnosis: Contact with and (suspected) exposure to potentially hazardous body fluids[ICD10: Z77.21] Diagnosis: 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, 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] Diagnosis: Unspecified open wound, right foot, sequela[ICD10: S91.301S] María Elena APPIAH [facility] CPT-4: 90685 09/19/2016 ([id number]) OFFICE/OUTPATIENT VISIT EST Diagnosis: Chronic sinusitis, 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: J32.9] Diagnosis: Allergic rhinitis due to pollen[ICD10: J30.1] María Elena APPIAH [facility] CPT-4: 72197 08/24/2016 ([id number]) OFFICE/OUTPATIENT VISIT EST Diagnosis: Acute bronchitis, 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: J20.9] María Elena APPIAH DO [employer] CPT-4: 06940 08/16/2016 ([id number]) OFFICE/OUTPATIENT VISIT EST Diagnosis: Otitis media, unspecified, right ear[ICD10: H66.91] Diagnosis: Acute bronchitis, 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: J20.9] María Elena APPIAH [facility] CPT-4: 85414 08/10/2016 ([id number]) OFFICE/OUTPATIENT VISIT EST Diagnosis: Acute recurrent sinusitis, 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: J01.91] Diagnosis: Allergic rhinitis due to pollen[ICD10: J30.1] María Elena APPIAH DO [facility] CPT-4: 70437 08/02/2016 ([id number]) OFFICE/OUTPATIENT VISIT EST Diagnosis: Pain in unspecified joint[ICD10: M25.50] María Elena APPIAH DO [facility] CPT-4: 62973 07/27/2016 OFFICE/OUTPATIENT VISIT EST Diagnosis: 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] Diagnosis: Acute recurrent sinusitis, 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: J01.91] Diagnosis: Other fatigue[ICD10: R53.83] Diagnosis: Primary insomnia[ICD10: F51.01] Diagnosis: Pain in unspecified joint[ICD10: M25.50] María Elena APPIAH [employer] [facility] CPT-4: 39033 07/20/2016 ([id number]) OFFICE/OUTPATIENT VISIT EST Diagnosis: Blister (nonthermal), left great toe, initial encounter[ICD10: S90.422A] Loan APPIAH DO [facility] CPT-4: 59880 ([id number]) OFFICE/OUTPATIENT VISIT EST Diagnosis: Acute recurrent sinusitis, 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: J01.91] María Elena APPIAH DO [facility] CPT-4: 25094 05/25/2016 ([id number]) OFFICE/OUTPATIENT VISIT EST Diagnosis: Acute sinusitis, 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: J01.90] María Elena APPIAH DO [facility] CPT-4: 00235 04/26/2016 ([id number]) OFFICE/OUTPATIENT VISIT EST Diagnosis: Flushing[ICD10: R23.2] Diagnosis: Primary insomnia[ICD10: F51.01] María Elena APPIAH DO [facility] CPT-4: 53879 03/02/2016 ([id number]) OFFICE/OUTPATIENT VISIT EST Diagnosis: Other seasonal allergic rhinitis[ICD10: J30.2] Loan APPIAH [facility] CPT-4: 75554 02/09/2016 ([id number]) OFFICE/OUTPATIENT VISIT EST Diagnosis: Primary insomnia[ICD10: F51.01] Diagnosis: Urinary tract infection, site not specified[ICD10: N39.0] María Elena APPIAH [facility] CPT-4: 13451 01/24/2016 ([id number]) OFFICE/OUTPATIENT VISIT EST Diagnosis: Other specified disorders of Eustachian tube, bilateral[ICD10: H69.83] Diagnosis: Allergic rhinitis, 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: J30.9] Loan APPIAH [facility] CPT-4: 42335 12/23/2015 ([id number]) OFFICE/OUTPATIENT VISIT EST Diagnosis: Acute recurrent sinusitis, 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: J01.91] Diagnosis: 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] Diagnosis: Allergic rhinitis, 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: J30.9] María Elean APPIAH [facility] CPT-4: 71193 12/08/2015 ([id number]) OFFICE/OUTPATIENT VISIT EST Diagnosis: Allergic rhinitis, 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: J30.9] Diagnosis: Pain in unspecified joint[ICD10: M25.50] María Elena APPIAH [facility] CPT-4: 47990 10/07/2015 ([id number]) OFFICE/OUTPATIENT VISIT EST Diagnosis: Essential (primary) hypertension[ICD10: I10] María Elena APPIAH [employer] [facility] CPT-4: 28133 10/06/2015 OFFICE/OUTPATIENT VISIT EST Diagnosis: Localized enlarged lymph nodes[ICD10: R59.0] Diagnosis: Local infection of the skin and subcutaneous tissue, 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: L08.9] June Flores MARÍA ELEAN APPIAH [employer] [facility] CPT- 4: 58899 09/14/2015 ([id number]) OFFICE/OUTPATIENT VISIT EST Diagnosis: Essential (primary) hypertension[ICD10: I10] Diagnosis: Actinic keratosis[ICD10: L57.0] María Elena APPIAH DO [facility] CPT-4: 77832 09/07/2015 ([id number]) OFFICE/OUTPATIENT VISIT EST Diagnosis: Essential (primary) hypertension[ICD10: I10] Diagnosis: Acute stress reaction[ICD10: F43.0] María Elena APPIAH DO [facility] CPT-4: 40764 08/18/2015 ([id number]) OFFICE/OUTPATIENT VISIT EST Diagnosis: Essential (primary) hypertension[ICD10: I10] María Elena APPIAH DO [facility] CPT-4: 63682 07/07/2015 ([id number]) OFFICE/OUTPATIENT VISIT EST Diagnosis: Essential (primary) hypertension[ICD10: I10] María Elena APPIAH DO [facility] CPT-4: 46072 06/24/2015 ([id number]) OFFICE/OUTPATIENT VISIT EST Diagnosis: Essential (primary) hypertension[ICD10: I10] María Elena APPIAH DO [facility] CPT-4: 65593 06/21/2015 ([id number]) OFFICE/OUTPATIENT VISIT EST Diagnosis: Essential (primary) hypertension[ICD10: I10] Diagnosis: Mixed hyperlipidemia[ICD10: E78.2] Diagnosis: Acute stress reaction[ICD10: F43.0] Diagnosis: Primary insomnia[ICD10: F51.01] María Elena APPIAH DO [facility] CPT-4: 23598 06/16/2015 ([id number]) OFFICE/OUTPATIENT VISIT EST Diagnosis: INSOMNIA NOS[ICD9: 780.52] Diagnosis: HYPERTENSION[ICD9: 401.9] Diagnosis: Stress reaction[ICD9: 308.9] María Elena APPIAH DO [facility] CPT-4: 27549 06/02/2015 ([id number]) OFFICE/OUTPATIENT VISIT EST Diagnosis: HYPERTENSION[ICD9: 401.9] Diagnosis: Stress reaction[ICD9: 308.9] María Elena APPIAH DO [facility] CPT-4: 97832 05/20/2015 ([id number]) OFFICE/OUTPATIENT VISIT EST Diagnosis: Skin lesion[ICD9: 709.9] 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] María Elena APPIAH [facility] CPT-4: 57483 05/10/2015 ([id number]) OFFICE/OUTPATIENT VISIT EST Diagnosis: SINUSITIS, ACUTE[ICD9: 461.9] Diagnosis: ALLERGIC RHINITIS[ICD9: 477.9] Diagnosis: DERMATITIS NOS[ICD9: 692.9] María Elena REHMAN [facility] CPT-4: 19032 03/16/2015 OFFICE/OUTPATIENT VISIT EST Diagnosis: Otitis media[ICD9: 382.9] Diagnosis: SINUSITIS, ACUTE[ICD9: 461.9] June APPIAH [facility] CPT-4: 29710 09/11/2014 ([id number]) OFFICE/OUTPATIENT VISIT EST Diagnosis: HYPERLIPIDEMIA NEC/NOS[ICD9: 272.4] María Elena APPIAH [facility] CPT-4: 59413 08/31/2014 ([id number]) OFFICE/OUTPATIENT VISIT EST Diagnosis: - I - HYPERTENSION[ICD9: 401.9] Diagnosis: HYPERLIPIDEMIA NEC/NOS[ICD9: 272.4] María Elena APPIAH [facility] CPT-4: 19551 08/27/2014 ([id number]) OFFICE/OUTPATIENT VISIT EST Diagnosis: ABDOMINAL PAIN[ICD9: 789.00] Diagnosis: DYSPEPSIA[ICD9: 536.8] Diagnosis: Thoracic back pain[ICD9: 724.1] María Elena APPIAH [facility] CPT-4: 73502 07/21/2014 ([id number]) OFFICE/OUTPATIENT VISIT EST Diagnosis: ALLERGIC RHINITIS[ICD9: 477.9] María Elena APPIAH [facility] CPT-4: 88769 07/15/2014 ([id number]) OFFICE/OUTPATIENT VISIT EST Diagnosis: EDEMA[ICD9: 782.3] Diagnosis: Chronic insomnia[ICD9: 780.52] María Elena APPIAH [facility] CPT-4: 86734 05/18/2014 ([id number]) OFFICE/OUTPATIENT VISIT EST Diagnosis: Thyromegaly[ICD9: 240.9] Diagnosis: - I - HYPERTENSION[ICD9: 401.9] Diagnosis: ROUTINE MEDICAL EXAM[ICD9: V70.0] Diagnosis: EDEMA[ICD9: 782.3] María Elena APPIAH [facility] CPT-4: 14352 05/14/2014 OFFICE/OUTPATIENT VISIT EST Diagnosis: BRONCHITIS, ACUTE[ICD9: 466.0] Diagnosis: SINUSITIS, ACUTE[ICD9: 461.9] María Elena APPIAH [facility] CPT-4: 69941 04/21/2014 OFFICE/OUTPATIENT VISIT EST Diagnosis: SINUSITIS, ACUTE[ICD9: 461.9] June VelozAlbertadaniella [facility] CPT-4: 22435 03/04/2014 ([id number]) OFFICE/OUTPATIENT VISIT EST Diagnosis: VACCINE FOR TDAP[ICD10: Z23] María Elena [facility] CPT-4: 35696 02/27/2014 ([id number]) OFFICE/OUTPATIENT VISIT EST Diagnosis: Seborrheic keratoses, inflamed[ICD9: 702.11] Diagnosis: ACTINIC KERATOSIS[ICD9: 702.0] Diagnosis: INSOMNIA NOS[ICD9: 780.52] María Elena [facility] C[facility]: 14946 01/13/2014 OFFICE/OUTPATIENT VISIT EST 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] Diagnosis: ALLERGIC RHINITIS[ICD9: 477.9] Diagnosis: Serous otitis media[ICD9: 381.4] María Elena APPIAH [facility] CPT-4: 20730 12/24/2013 ([id number]) OFFICE/OUTPATIENT VISIT EST Diagnosis: SINUSITIS, ACUTE[ICD9: 461.9] Diagnosis: ALLERGIC RHINITIS[ICD9: 477.9] 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] María Elena [facility] CPT-4: 44277 11/12/2013 ([id number]) OFFICE/OUTPATIENT VISIT EST Diagnosis: ALLERGIC RHINITIS[ICD9: 477.9] Diagnosis: SINUSITIS, ACUTE[ICD9: 461.9] María Elena APPIAH DO [facility] CPT-4: 71021 10/21/2013 ([id number]) OFFICE/OUTPATIENT VISIT EST Diagnosis: ASYMPTOMATIC VARICOSE VEINS[ICD9: 454.9] Diagnosis: INSOMNIA NOS[ICD9: 780.52] María Elena PANDYA [facility] CPT-4: 11583 09/22/2013 OFFICE/OUTPATIENT VISIT EST Diagnosis: SINUSITIS, ACUTE[ICD9: 461.9] June APPIAH DO [facility] CPT-4: 29314 08/27/2013 ([id number]) OFFICE/OUTPATIENT VISIT EST Diagnosis: CEPHALGIA[ICD9: 784.0] Diagnosis: CEPHALGIA, TENSION[ICD9: 307.81] 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] María Elena APPIAH [facility] CPT-4: 30602 08/04/2013 ([id number]) OFFICE/OUTPATIENT VISIT EST Diagnosis: Cervicalgia[ICD9: 723.1] Diagnosis: SPASM OF MUSCLE[ICD9: 728.85] Diagnosis: CEPHALGIA, TENSION[ICD9: 307.81] María Elena APPIAH [facility] CPT-4: 43092 07/23/2013 ([id number]) OFFICE/OUTPATIENT VISIT EST 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] Diagnosis: ALLERGIC RHINITIS[ICD9: 477.9] María Elena APPIAH DO [facility] CPT-4: 97877 06/23/2013 ([id number]) OFFICE/OUTPATIENT VISIT EST Diagnosis: ALLERGIC RHINITIS[ICD9: 477.9] Diagnosis: ACUTE SEROUS OTITIS MEDIA[ICD9: 381.01] 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] María Elena APPIAH DO [facility] CPT-4: 48371 05/26/2013 ([id number]) OFFICE/OUTPATIENT VISIT EST Diagnosis: HYPERTENSION[ICD9: 401.9] Diagnosis: EDEMA[ICD9: 782.3] Diagnosis: Serous otitis media[ICD9: 381.4] María Elena JUARES AlanJj [facility] CPT-[facility]: 83522 04/16/2013 ([id number]) OFFICE/OUTPATIENT VISIT EST Diagnosis: SINUSITIS, ACUTE[ICD9: 461.9] Diagnosis: ALLERGIC RHINITIS[ICD9: 477.9] Diagnosis: EDEMA[ICD9: 782.3] Diagnosis: Thyromegaly[ICD9: 240.9] Diagnosis: MALAISE AND FATIGUE[ICD9: 780.79] María Elena Lopez AlanJj [facility] CPT-[facility]: 84373 03/05/2013 ([id number]) OFFICE/OUTPATIENT VISIT EST Diagnosis: PAIN, LOWER BACK[ICD9: 724.2] Diagnosis: SPASM OF MUSCLE[ICD9: 728.85] María Elena Hicks [employer] CPT-4: 97892 12/23/2012 OFFICE/OUTPATIENT VISIT EST Diagnosis: Low back pain[ICD9: 724.2] Lashawn Hicks [facility] CPT-4: 10308 12/16/2012 ([id number]) OFFICE/OUTPATIENT VISIT EST Diagnosis: PAIN, LOWER BACK[ICD9: 724.2] Diagnosis: SCIATICA[ICD9: 724.3] Diagnosis: Lumbar herniated disc[ICD9: 722.10] María Elena COLON [employer]j [employer] CPT-4: 94354 12/09/2012 ([id number]) OFFICE/OUTPATIENT VISIT EST Diagnosis: PAIN, LOWER BACK[ICD9: 724.2] Diagnosis: SCIATICA[ICD9: 724.3] Diagnosis: LUMBAR DISC DISPLACEMENT[ICD9: 722.10] María Elena MARIN Alan[employer]j [employer] CPT-4: 08058 12/04/2012 OFFICE/OUTPATIENT VISIT EST Diagnosis: Pneumonia[ICD9: 486] Mary Hicks [facility] [employer] [facility] CPT-4: 76646 11/22/2012 ([id number]) OFFICE/OUTPATIENT VISIT EST Diagnosis: PNEUMONIA, ORGANISM[ICD9: 486] Diagnosis: Exacerbation of RAD (reactive airway disease)[ICD9: 493.92] María Elena Waltabbey MARÍA ELENA AlanJj [facility] CPT-4: 78808 11/21/2012 OFFICE/OUTPATIENT VISIT EST Diagnosis: HYPERTENSION[ICD9: 401.9] Diagnosis: Cephalgia[ICD9: 784.0] Lashawn Babar MARÍA ELENA AlanJj IGNACIO GARIBAY [facility] CPT-4: 05880 10/29/2012 ([id number]) OFFICE/OUTPATIENT VISIT EST Diagnosis: MALAISE AND FATIGUE[ICD9: 780.79] Diagnosis: ARTHRALGIA-MULTIPLE SITES[ICD9: 719.49] María Elenamarcella MONTERO APARNAALCIDES AlanJj [facility] CPT-4: 01588 10/14/2012 ([id number]) OFFICE/OUTPATIENT VISIT EST Diagnosis: URINARY FREQUENCY[ICD9: 788.41] María Elena Waltabbey MARÍA ELENA AlanJj [facility]NA[facility]IO [facility] CPT-4: 17753 09/27/2012 ([id number]) OFFICE/OUTPATIENT VISIT EST Diagnosis: MALAISE AND FATIGUE[ICD9: 780.79] Diagnosis: ARTHRALGIA-MULTIPLE SITES[ICD9: 719.49] María Elenaalcides Appiah KYLAH BRAUNALCIDES AlanJj [facility]NACIO [facility] CPT-4: 96654 09/25/2012 ([id number]) OFFICE/OUTPATIENT VISIT EST Diagnosis: SINUSITIS, ACUTE[ICD9: 461.9] 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] María Elenamarcella MONTEROQUELINE AlanJj IGNACIO GARIBAY [facility] CPT-4: 54272 08/29/2012 OFFICE/OUTPATIENT VISIT EST Diagnosis: ACTINIC KERATOSIS[ICD9: 702.0] Diagnosis: Inflamed seborrheic keratosis[ICD9: 702.11] Diagnosis: Skin cancer of face[ICD9: 173.31] Diagnosis: HYPERTENSION[ICD9: 401.9] María Elena JUARES AlanJj WALT [facility] CPT-4: 45416 08/12/2012 ([id number]) OFFICE/OUTPATIENT VISIT EST Diagnosis: ARTHRALGIA-MULTIPLE SITES[ICD9: 719.49] Diagnosis: GOUT[ICD9: 274.9] Diagnosis: HYPERTENSION[ICD9: 401.9] Diagnosis: Tachycardia[ICD9: 785.0] María Elena MONTEROQUELINE AlanJj FRITZ BRADFORD [facility] CPT-4: 97485 05/06/2012 ([id number]) OFFICE/OUTPATIENT VISIT EST Diagnosis: INSOMNIA NOS[ICD9: 780.52] María Elena Wayyesivictorino MARÍA ELENA AlanJj KRISTYN PANDYA [facility] CPT-4: 42608 04/03/2012 ([id number]) OFFICE/OUTPATIENT VISIT EST Diagnosis: INSOMNIA NOS[ICD9: 780.52] Diagnosis: HYPERTENSION[ICD9: 401.9] Diagnosis: MIGRAINE NOS/NOT INTRCBL[ICD9: 346.90] María Elena Waltyesivictorino MARLIN MARIN AlanJj WALTNDVICTORINO [facility] CPT-4: 18118 03/19/2012 ([id number]) OFFICE/OUTPATIENT VISIT EST Diagnosis: CELLULITIS[ICD9: 682.9] Diagnosis: Ankle pain[ICD9: 719.47] Diagnosis: HYPERTENSION[ICD9: 401.9] María Elena Wayabbey JUARES AlanJj WALT NDERose Mary [facility] CPT-4: 34494 02/20/2012 ([id number]) OFFICE/OUTPATIENT VISIT EST Diagnosis: MIGRAINE NOS/NOT INTRCBL[ICD9: 346.90] Diagnosis: Vomiting[ICD9: 787.03] María Elena Waltabbey JUARES AlanJj WALTYESIJohn R [facility] CPT-4: 00821 01/30/2012 ([id number]) OFFICE/OUTPATIENT VISIT EST Diagnosis: EDEMA[ICD9: 782.3] Diagnosis: HYPERTENSION[ICD9: 401.9] Diagnosis: ALLERGIC RHINITIS[ICD9: 477.9] Diagnosis: ARTHRALGIA-MULTIPLE SITES[ICD9: 719.49] María Elena Waltabbey MONTERO APARNAALCIDES AlanJj IGNACIO [facility] CPT-4: 88458 01/24/2012 ([id number]) OFFICE/OUTPATIENT VISIT EST Diagnosis: SPASM OF MUSCLE[ICD9: 728.85] Diagnosis: Thoracic back pain[ICD9: 724.1] Diagnosis: Cervical pain[ICD9: 723.1] María Elena Waltabbey JUARES AlanJj KRISTYN PANDYA [facility] CPT-4: 80769 01/10/2012 OFFICE/OUTPATIENT VISIT EST Diagnosis: PAIN, LOWER BACK[ICD9: 724.2] Diagnosis: LUMBAR DISC DISPLACEMENT[ICD9: 722.10] María Elena APPIAH [facility] CPT-4: 45841 12/11/2011 OFFICE/OUTPATIENT VISIT EST Diagnosis: MIGRAINE NOS/NOT INTRCBL[ICD9: 346.90] Diagnosis: SINUSITIS, ACUTE[ICD9: 461.9] María Elena APPIAH [facility] CPT-4: 24754 11/09/2011 OFFICE/OUTPATIENT VISIT EST Diagnosis: MIGRAINE NOS/NOT INTRCBL[ICD9: 346.90] Diagnosis: LYMPHADENOPATHY[ICD9: 785.6] María Elena APPIAH [facility] CPT-4: 32081 09/13/2011 OFFICE/OUTPATIENT VISIT EST Diagnosis: MALAISE AND FATIGUE[ICD9: 780.79] Diagnosis: ARTHRALGIA-MULTIPLE SITES[ICD9: 719.49] María Elena APPIAH [facility] CPT-4: 53766 08/31/2011 OFFICE/OUTPATIENT VISIT EST Diagnosis: SINUSITIS, ACUTE[ICD9: 461.9] María Elena APPIAH [facility] CPT-4: 40360 07/20/2011 OFFICE/OUTPATIENT VISIT EST Diagnosis: HYPERTENSION[ICD9: 401.9] Diagnosis: PAIN, LOWER BACK[ICD9: 724.2] Diagnosis: SPASM OF MUSCLE[ICD9: 728.85] María Elena APPIAH [facility] CPT-4: 49205 07/06/2011 OFFICE/OUTPATIENT VISIT EST Diagnosis: MIGRAINE NOS/NOT INTRCBL[ICD9: 346.90] Diagnosis: HYPERTENSION[ICD9: 401.9] María Elena SEYMOUR [facility] CPT-4: 62136 05/22/2011 OFFICE/OUTPATIENT VISIT EST Diagnosis: SINUSITIS, ACUTE[ICD9: 461.9] Diagnosis: MIGRAINE NOS/NOT INTRCBL[ICD9: 346.90] Diagnosis: Dehydration[ICD9: 276.51] Diagnosis: Vomiting[ICD9: 787.03] María Elena Bazzi [facility] CPT-4: 43507 05/09/2011 ([id number]) OFFICE/OUTPATIENT VISIT EST María Elena Waltnder [facility] CPT-4: 04940 02/14/2011 ([id number]) OFFICE/OUTPATIENT VISIT EST María Elena Waltnder [facility] CPT-4: 99286 02/03/2011 ([id number]) OFFICE/OUTPATIENT VISIT EST María Elenamarcella Waynder [facility] CPT-4: 95402 01/31/2011 ([id number]) OFFICE/OUTPATIENT VISIT EST María Elena Waltnder [facility] CPT-4: 43721 01/25/2011 ([id number]) OFFICE/OUTPATIENT VISIT EST María Elena Waltnder [facility] CPT-4: 21756 01/18/2011 ([id number]) OFFICE/OUTPATIENT VISIT EST María Elenamarcella Ortaer [facility] CPT-4: 76237 11/29/2010 ([id number]) OFFICE/OUTPATIENT VISIT, EST María Elenamarcella Waynder [facility] CPT-4: 01726 10/10/2010 ([id number]) OFFICE/OUTPATIENT VISIT, EST María Elenamarcella Waynder [facility] CPT-4: 40865 06/07/2010 ([id number]) OFFICE/OUTPATIENT VISIT, EST María Elena Waltnder [facility] CPT-4: 36037 04/27/2010 ([id number]) OFFICE/OUTPATIENT VISIT, EST María Elena Waltnder [facility] CPT-4: 78612 04/05/2010 ([id number]) OFFICE/OUTPATIENT VISIT, EST María Elena Waltnder [facility] CPT-4: 60669 03/09/2010 ([id number]) OFFICE/OUTPATIENT VISIT, EST María Elena Waltnder [facility] CPT-4: 59788 03/03/2010 ([id number]) OFFICE/OUTPATIENT VISIT, EST María Elenamarcella APPIAH DO [employer] CPT-4: 41427 01/17/2010 ([id number]) PREV VISIT, EST, AGE 40-64 María Elena MONTEROMICHAEL ValdesJj APPIAH DO [employer] CPT-4: 46510 12/27/2009 Plan of Care Planned Activity Notes [...] ICD-10 : S90.821A 02/12/2020 Appointment: Kathleen Zuniga [address] [place] [address] ACUTE ILLNESS 02/12/2020 Visit Diagnosis Plan: Essential [...] 01/13/2020 Appointment: María Elena Appiah WPtel: [phone] [facility] FOLLOW UP 01/13/2020 Patient Education: lisinopril- [employer] [id number] Completed 01/13/2020 Patient Education: glimepiride- [employer] [id number] Completed 01/13/2020 Appointment: RichardvictorinoMaría Elena [facility] [phone] [facility] [facility] CANCELED 11/26/2019 Visit Diagnosis Plan: Type 2 diabetes mellitus with hy perglycemia Discussion: Januvia 100mg daily Glimepride 2mg po BID Accuchecks BID Call in 2 weeks with BS readings Get formulary book ICD-9 : 250.02 ICD-10 : E11.65 11/20/2019 Appointment: RichardvictorinoMaría Elena [facility] [phone] [facility] [facility] 11/20/2019 Patient Education: glimepiride- [employer] [id number] Completed 11/20/2019 Patient Education: Januvia- [employer] [id number] Completed 11/20/2019 Visit Diagnosis Plan: Ingrowing nail [...] ICD-10 : E11.65 10/07/2019 Appointment: Kathleen Zuniga [address] [place], [place] [id number] OFF[facility] 10/07/2019 Visit Diagnosis Plan: [...] E11.65 09/30/2019 Appointment: María Elena Appiah WPtel: [address] [place], [place] [phone] US CHECK UP 09/30/2019 Patient Education: Premarin- [employer] [id number] [email or web address]/resources/[email or web address] Completed 09/30/2019 Appointment: María Elena Appiah WPtel: [address] [place], [place] [phone] [place] LAB 09/29/2019 Appointment: María Elena Appiah WPtel: [address] [place], [place] [phone] [place] Won't have the new insurance till [...] W06.XXXS 05/28/2019 Appointment: María Elena Appiah WPtel: [address] [place] [address] [place] FOLLOW UP 05/28/2019 Appointment: María Elena Appiah WPtel: [address] [place] [address] US BP CHECK 05/19/2019 Visit Diagnosis Plan: [...] Z79.890 01/22/2019 Appointment: María Elena Appiah WPtel: [address] [place] [address] [place] FOLLOW UP 01/22/2019 Patient Education: estradiol- [employer] Coupon [id number] https://www.[employer]/samplemd/resources/getResource/61/[email or web address] Completed 01/22/2019 Appointment: María Elena Appiah WPtel: [address] [place] [address] [place] CANCELED 01/20/2019 Appointment: María Elena Appiah WPtel: [address] [place] [address] [place] LM NO SHOW 01/06/2019 Appointment: María Elena Appiah WPtel: [address] [place] [address] [place] CANCELED 10/17/2018 Appointment: María Elena Appiah WPtel: [address] [place] [address] [place] BP CHECK 10/09/2018 Visit Diagnosis Plan: [...] I10 09/30/2018 Appointment: María Elena Appiah WPtel: [address] [place] [address] [place] FOLLOW UP 09/30/2018 Visit Diagnosis Plan: [...] F51.01 08/27/2018 Appointment: María Elena Appiah WPtel: [address] [place] [address] ACUTE ILLNESS 08/27/2018 Appointment: María Elena Appiah WPtel: [address] [place] [address] [place] Patient stated she went out to [...] Tyle... 08/09/2018 Appointment: María Elena Appiah WPtel: [address] [place] [address] ACUTE ILLNESS 08/09/2018 Appointment: María Elena Appiah WPtel: [address] [place] [address] NO SHOW 08/08/2018 Visit Diagnosis Plan: Anxiety [...] B35.4 07/22/2018 Appointment: María Elena Appiah WPtel: [address] [place], [place] [phone] ACUTE ILLNESS 07/22/2018 Appointment: María Elena Appiah WPtel: [address] [place], [place] [phone] [place] INJECTION 06/19/2018 Patient Education: Patient Medication [...] ICD-10 : L03.031 06/17/2018 Appointment: Kathleen Zuniga [address] [place] [address] ACUTE ILLNESS 06/17/2018 Patient Education: Patient Medication [...] ICD-10 : B02.9 05/16/2018 Appointment: Kathleen Zuniga [address] [place], [place] [address] ACUTE ILLNESS 05/16/2018 Patient Education: Patient Medication [...] ICD-10 : L03.115 03/20/2018 Appointment: Kathleen Zuniga [address] [place], [place] [phone] FOLLOW UP 03/20/2018 Patient Education: Patient Medication [...] ICD-10 : L03.115 03/18/2018 Appointment: Kathleen Zuniga [address] [place], [place] [phone] FOLLOW UP 03/18/2018 Patient Education: Patient Medication [...] ICD-10 : L03.115 03/15/2018 Appointment: Kathleen Zuniga [address] [place], [place] [phone] ACUTE ILLNESS 03/15/2018 Patient Education: Patient Medication [...] ICD-10 : J01.90 02/11/2018 Appointment: Kathleen Zuniga [address] [place], [place] [phone] ACUTE ILLNESS 02/11/2018 Patient Education: Patient Medication Summary Completed 02/11/2018 Appointment: María Elena Appiah WPtel: [phone] [facility] INJECTION 02/01/2018 Patient Education: Patient Medication [...] ICD-10 : M51.16 01/30/2018 Appointment: Kathleen Zuniga [address] [place], [place] [id number] ACUTE ILLNESS 01/30/2018 Patient Education: Patient Medication [...] 12/18/2017 Appointment: María Elena Appiah WPtel: [phone] [facility] Annual Well Visit 12/18/2017 Patient Education: Patient Medication Summary Completed 12/18/2017 Care Plan: Referral Order SNOMED-CT : [phone] [id number] Pending 12/18/2017 Appointment: María Elena Appiah WPtel: [phone] [facility] [place] INJECTION 12/10/2017 Patient Education: Patient [...] ICD-10 : L03.031 12/07/2017 Appointment: Kathleen Zuniga [address] [place] [address] ACUTE ILLNESS 12/07/2017 Patient Education: Patient Medication [...] ICD-10 : J01.00 10/08/2017 Appointment: Kathleen Zuniga [address] [place], [place] [phone] ACUTE ILLNESS 10/08/2017 Patient Education: Patient Medication Summary Completed 10/08/2017 Appointment: María Elena Appiah WPtel: [phone] [facility] [place] INJECTION 09/21/2017 Patient Education: Patient [...] ICD-10 : R06.83 09/20/2017 Appointment: Kathleen Zuniga [address] [place], [place] [address] [facility] ACUTE ILLNESS 09/20/2017 Patient Education: Patient Medication [...] ICD-10 : L60.0 08/29/2017 Appointment: Kathleen Zuniga [address] [place], [place] [address] [id number] 08/29/2017 Patient Education: Patient Medication Summary Completed 08/29/2017 Visit Diagnosis Plan: Actinic keratosis Discussion: Cr yotherapy as above ICD-9 : 702.0 ICD-10 : L57.0 08/01/2017 Appointment: María Elena Appiah WPtel: [address] [place], [place] [address] OFFICE SURGERY 08/01/2017 Patient Education: Patient Medication Summary Completed 08/01/2017 [facility]ment: [phone] [facility] PAT[facility] THOUGHT APPOINTMENT WAS TOMORROW 07/26/17 CALLED 15 MINUTES BEFORE APPT TO SAY SHE DIDN'T HAVE ANYONE TO COVER HER BUSINESS AND WOULD NOT MAKE IT NO SHOW 07/25/2017 Visit Diagnosis Plan: Cellulitis of left toe Discussio n: Clindamycin and notify if worsening or persistis ICD-9 : 681.10 ICD-10 : L03.032 07/19/2017 Appointment: María Elena Appiah WPtel: [address] [place], [place] [phone] MEDICATION REVIEW 07/19/2017 Patient Education: Patient Medication Summary Completed 07/19/2017 Appointment: María Elena Appiah WPtel: [address] [place], [place] [address] CANCELED 07/04/2017 Visit Diagnosis Plan: Generalized hyperhidrosis Discus ian: CBC, CMP, TSH, free T4 ordered to assess. will review labs. ICD-9 : 780.8 ICD-10 : R61 06/27/2017 Visit Diagnosis Plan: Chronic sinusitis, unspecified D iscussion: Referral sent to dr. albarado in [place] per patient request. patient has been treated multiple times for sinus infections with no recovery. patient was seen by dr sanchez in the past with no interventions. patient has deviated septum which may be affecting her sinuses. 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, including hip Discussion: Shave removal of above lesio n--sent to pathology ICD-9 : 216.7 ICD-10 : D23.72 01/24/2017 Appointment: María Elena Appiah WPtel: [address] [place], [place] [phone] 01/23 confirmed ~ OFFICE SURGERY 01/24/2017 Patient Education: Patient Medication Summary Completed 01/24/2017 Appointment: Loan Sánchez [address] [place], [place] [phone] 01/09 rescheduled~sl RESCHEDULED 01/15/2017 Visit Diagnosis Plan: [...] 12/13/2016 Appointment: María Elena Appiah [facility]Ptel[phone] [facility] [place] 12/12 confirmed ~sl MEDICATION REVIEW 12/13/2016 Patient Education: Patient Medication Summary Completed 12/13/2016 Appointment: María Elena Appiah [facility]Ptel[phone] [facility] [place] rescheduled for 12/13/16 at 11am RESCHEDULED 0 12/06/2016 Appointment: María Elena Appiah [facility]Ptel[phone] [facility] [place] CANCELED 11/23/2016 Patient Education: Patient [...] 11/01/2016 Appointment: María Elena Appiah [facility]Ptel[phone] [facility] [place] 10/31 lm `sl 11/01 lm`sl MEDICATION REVIEW 017 Patient Education: Patient Medication Summary Completed 11/01/2016 Referral: Canelo Overton WPtel: [phone] [id number] [place] Referral Initiated 10/30/2016 Visit Diagnosis Plan: Encounter for [facility] child health examination without abnormal findings Discussion: Lab up to date Referral for colonoscopy Follow Up: 6 months ICD-9 : V20.2 ICD-10 : Z00.129 10/17/2016 Visit Diagnosis Plan: Encounter for gyne cological examination (general) (routine) without abnormal findings Discussion: Speculum and Bimanual exam d one Mammogram ordered ICD-9 : V72.31 ICD-10 : Z01.419 10/17/2016 Appointment: María Elena Appiah WPtel: [address] [place], [place] [phone] 10/16 confirmed ~sl PAP 10/17/2016 Patient Education: Patient Medication Summary Completed 10/17/2016 Care Plan: MAMMOGRAM SCREENING LOINC : 2 6347-5 Pending 10/17/2016 Visit Diagnosis Plan: Other seasonal allergic rhinitis Discussion: Decadron/Garamycin Nasal [place] Mix Too soon for steroid Retry zyrtec 10mg daily ICD-9 : 477.9 ICD-10 : J30.2 10/10/2016 Appointment: María Elena Appiah WPtel: [address] [place], [place] [address] FOLLOW UP 10/10/2016 Patient Education: Patient Medication Summary Completed 10/10/2016 Appointment: María Elena Appiah WPtel: [address] [place], [place] [phone] 10/02 reschedule `sl RESCHEDULED 10/02/2016 Visit Plan: See surgery for removal of n ew left arm lesion and right foot lesion Lyrica to use next month for left arm paresthesias Continue current meds Discussed sunscreen/sunblock combo 09/19/2016 Appointment: María Elena Appiah WPtel: [address] [place], [place] [phone] 09/18 confirmed ~sl FOLLOW UP 09/19/2016 Patient Education: Patient Medication Summary Completed 09/19/2016 Patient Education: Patient Medication Summary Completed 09/18/2016 Care Plan: MAMMOGRAM BOTH BREASTS LOINC : 14030-1 Pending 09/18/2016 Visit Plan: Discussed that needs [...] out sinuses 08/24/2016 Appointment: María Elena Appiahtel: [address] [place] [address] ACUTE ILLNESS 08/24/2016 Patient Education: Patient Medication Summary Completed 08/24/2016 Patient Education: Patient Medication Summary Completed 08/23/2016 Care Plan: MAMMOGRAM SCREENING LOINC : 2 6347-5 Pending 08/23/2016 Visit Plan: Finish doxycycline Add Breo 100/25 1 p BID for 2 weeks If not improving within next 2 days will get CXR 08/16/2016 Appointment: María Elena Appiahtel: [address] [place] [address] ACUTE ILLNESS 08/16/2016 Patient Education: Patient Medication Summary Completed 08/16/2016 Visit Plan: Supportive care. Rest, Fluid s, Tylenol/Motrin prn fever or bodyaches. Notify if worsening symptoms. Doxycyline and Prednisone 08/10/2016 Appointment: María Elena Appiahtel: [address] [place] [address] 08/09 lm`sl....confirmed-sp FOLLOW UP 09/2015 Patient Education: Patient Medication Summary Completed 08/10/2016 Visit Plan: Saline nasal flushes prn. Ty lenol/Motrin prn headache. Notify if persists/symptoms worsening. Dexamethasone 8mg IM today May use coricedan and mucinex 08/02/2016 Appointment: María Elena Appiahtel: [address] [place] [address] ACUTE ILLNESS 08/02/2016 Patient Education: Patient Medication Summary Completed 08/02/2016 Visit Plan: Cryotherapy as above and lef t forearm lesion removal as above with 5-0 punch biopsy and sent to path Return in 10 days for suture removal 08/01/2016 Appointment: María Elena Appiah: [address] [place], [place] [id number] 07/31 confirmed`~sl OFFICE SURGERY 08/01/2016 Patient Education: Patient Medication Summary Completed 08/01/2016 Visit Plan: Stop clindamycin Check CBC, CMP, ESR now/STAT 07/27/2016 Appointment: María Elena Appiah WPtel: [address] [place], [place] [phone] ACUTE ILLNESS 07/27/2016 Patient Education: Patient Medication Summary Completed 07/27/2016 Visit Plan: Update lab and check ABIs to start with Will likely need cardiology evaluation to rule out PVD Clindamycin for 10 days Daily yogurt or probiotic Will return for removal of left arm lesions 07/20/2016 Appointment: María Elena Appiah WPtel: [address] [place], [place] [phone] ACUTE ILLNESS 07/20/2016 Patient Education: Patient Medication Summary Completed 07/20/2016 Patient Education: Patient Medication Summary Completed 07/20/2016 Care Plan: MAMMOGRAM BOTH BREASTS LOINC : 81806-7 Pending 07/20/2016 Care Plan: US EXAM CHEST LOINC : 29805-8 Pending 07/20/2016 Visit Plan: Wound culture collected from left great toe Appearance is somewhat staph like Rx as above Wound cleanser and skin care reviewed May need to add oral antibiotic if sores do not heal or continue to reoccur 07/06/2016 Appointment: Loan Sánchez [address] [place], [place] [phone] ACUTE ILLNESS 07/06/2016 Patient Education: Patient Medication Summary Completed 07/06/2016 Appointment: María Elena Appiha WPtel: [address] [place], [place] [phone] [place] INJECTION 05/25/2016 Patient Education: Patient Medication Summary Completed 05/25/2016 Visit Plan: Saline nasal flushes prn. Ty lenol/Motrin prn headache. Notify if persists/symptoms worsening. Dexamethasone and Rocephin given 04/26/2016 Appointment: María Elena Appiah WPtel: [address] [place] [address] ACUTE ILLNESS 04/26/2016 Patient Education: Patient Medication Summary Completed 04/26/2016 Visit Plan: Check CBC, CMP, TSH, FreeT4, HbA1C, estradiol, lipids in AM 03/02/2016 Appointment: María Elena Appiah WPtel: [address] [place] [address] 03/01 lm~sl ACUTE ILLNESS 03/02/2016 Patient Education: Patient Medication Summary Completed 03/02/2016 Visit Plan: Exam is nearly normal Needs to be taking daily antihistamine Would prefer to use oral steroids instead of shot but patient insist that oral steroids cause horrible headaches for her Will given kenalog IM instead 02/09/2016 Appointment: Loan Sánchez [address] [place] [address] ACUTE ILLNESS 02/09/2016 Patient Education: Patient Medication Summary Completed 02/09/2016 Visit Plan: Culture urine Macrobid DC xa nax Trial of Ativan 1mg q HS 01/24/2016 Appointment: María Elena Appiah WPtel: [address] [place] [address] ACUTE ILLNESS 01/24/2016 Patient Education: Patient Medication Summary Completed 01/24/2016 Visit Plan: No steroid or rocephin injec tion warranted Can have oral prednisone Continue current home regimen Needs to follow up with Dr Sanchez if problems persist 12/23/2015 Appointment: Loan Sánchez [address] [place] [address] ACUTE ILLNESS 12/23/2015 Patient Education: Patient Medication Summary Completed 12/23/2015 Visit Plan: Saline nasal flushes prn. Ty lenol/Motrin prn headache. Notify if persists/symptoms worsening. Kenalog 40mg IM today 12/08/2015 Appointment: María Elena Appiah WPtel: [address] [place] [address] 12/06 confirmed~sl ACUTE ILLNESS 12/08/2015 Patient Education: Patient Medication Summary Completed 12/08/2015 Appointment: María Elena Appiah WPtel: [address] [place] [address] ACUTE ILLNESS 11/18/2015 Patient Education: Patient Medication Summary Completed 10/11/2015 Appointment: María Elena Appiah WPtel: [address] [place], [place] [phone] [place] INJECTION 10/07/2015 Patient Education: Patient Medication Summary Completed 10/07/2015 Visit Plan: Check renal arterial doppler s and ECHO Change amlodopine to lotrel 5/20mg q HS Will need stress test as well Check CMP, uric acid, ESR 10/06/2015 Appointment: María Elena Appiah WPtel: [address] [place] [address] ACUTE ILLNESS 10/06/2015 Patient Education: Patient Medication Summary Completed 10/06/2015 Patient Education: [facility] - [employer] - Amlodipine Besylate - 18-64 - Dynamic Portal ID Completed 10/06/2015 Appointment: María Elena Appiah WPtel: [address] [place] [address] FOLLOW UP 09/22/2015 Visit Plan: Cephalexin 500 mg PO bid Mery ly topical Mupirocin to lesions on left lateral neck and face Follow-up in one week. Sooner if symptoms worsen 09/14/2015 Appointment: June Flores WPtel: [address] [place] [address] ACUTE ILLNESS 09/14/2015 Patient Education: Patient Medication Summary Completed 09/14/2015 Visit Plan: Change bystolic to bedtime d osing and amlodopine to morning dosing Cryotherapy as above to AKs 09/07/2015 Appointment: María Elena Appiah WPtel: [address] [place] [address] 09/06 appointment made and confirmed ~sl FOLLOW UP 09/07/2015 Patient Education: Patient Medication Summary Completed 09/07/2015 Visit Plan: Increase bystolic back to 20 mg daily but will split and take 10mg in AM and 10mg in PM Stress Reducers 08/18/2015 Appointment: María Elena Appiah WPtel: [address] [place], [place] [phone] 08/17/15 appt confirmed cn ACUTE ILLNESS 08/18 Patient Education: Patient Medication Summary Completed 08/18/2015 Appointment: María Elena Appiah WPtel: [address] [place] [address] BP CHECK 07/07/2015 Patient Education: Patient Medication Summary Completed 07/07/2015 Appointment: María Elena Appiah WPtel: [address] [place], [place] [phone] BP CHECK 06/24/2015 Patient Education: Patient Medication Summary Completed 06/24/2015 Appointment: María Elena Appiah WPtel: [address] [place] [address] BP CHECK 06/21/2015 Patient Education: Patient Medication Summary Completed 06/21/2015 Visit Plan: Lab discussed Continue curre nt meds and lifestyle modification Recheck lab in 6mos 06/16/2015 Appointment: María Elena Appiah WPtel: [address] [place] [address] 06/15 confirmed FOLLOW UP 06/16/2015 Patient Education: Patient Medication Summary Completed 06/16/2015 Patient Education: Patient Medication Summary Completed 06/15/2015 Visit Plan: Increase cymbalta to 60mg q HS Keep clonidine at current dose Recheck 2weeks Change xanax to klonopin 06/02/2015 Appointment: María Elena Appiah WPtel: [address] [place], [place] [phone] 06/02 lm FOLLOW UP 06/02/2015 Patient Education: Patient Medication Summary Completed 06/02/2015 Appointment: María Elena Appiah WPtel: [address] [place], [place] [phone] ACUTE ILLNESS 05/24/2015 Visit Plan: Increase clonidine to 0.2mg q HS Add cymbalta 30mg q HS Recheck 2weeks Stress Reducers Check fasting lab Discussed sleep study 05/20/2015 Appointment: María Elena Appiah WPtel: [address] [place] [address] ACUTE ILLNESS 05/20/2015 Patient Education: Patient Medication Summary Completed 05/20/2015 Patient Education: [facility] - [employer] - Cymbalta - 18-64 - Dynamic Portal ID Completed 05/20/2015 Appointment: María Elena Appiah WPtel: [address] [place] [address] BP CHECK 05/19/2015 Patient Education: Patient Medication Summary Completed 05/19/2015 Visit Plan: Topical Bactroban alternatin g with topical betamethasone Recheck 2weeks 05/10/2015 Appointment: María Elena Appiah WPtel: [address] [place] [address] 05/07 vm cn...05/07 appt confirmed OFFICE SURGER Y 05/10/2015 Patient Education: Patient Medication Summary Completed 05/10/2015 Referral: Pat[facility]ik Chandler [facility] Referral Initiated 05/04/2015 Visit Plan: Saline nasal flushes prn. Ty lenol/Motrin prn headache. Notify if persists/symptoms worsening. Depomedrol 40mg IM today 03/16/2015 Appointment: María Elena Appiah WPtel: [address] [place] [address] ACUTE ILLNESS 03/16/2015 Patient Education: Patient Medication Summary Completed 03/16/2015 Appointment: María Elena Appiah WPtel: [address] [place] [address] ER Follow UP 03/09/2015 Visit Plan: Cryotherapy to lesions as ab ove 10/27/2014 Appointment: María Elena Appiah WPtel: [address] [place] [address] OFFICE SURGERY 10/27/2014 Patient Education: Patient Medication Summary Completed 10/27/2014 Appointment: June Flores WPtel: [address] [place] [address] ACUTE ILLNESS 09/11/2014 Patient Education: Patient Medication Summary Completed 09/11/2014 Visit Plan: Lab discussed Lipitor 10mg d aily Coenzyme Q-10 400mg daily Vitamin D3 5000u daily Recheck lipids with LFTs in 3mos then fwup 08/31/2014 Appointment: María Elena Appiah WPtel: [address] [place] [address] 08/28 voicemail FOLLOW UP 08/31/2014 Patient Education: Patient Medication Summary Completed 08/31/2014 Appointment: María Elena Appiah WPtel: [address] [place] [address] US LAB 08/27/2014 Appointment: María Elena Appiah WPtel: [address] [place] [address] US LAB 08/27/2014 Patient Education: Patient Medication Summary Completed 08/27/2014 Appointment: María Elena Appiah WPtel: [address] [place] [address] ACUTE ILLNESS 07/23/2014 Appointment: María Elena Appiah WPtel: [address] [place] [address] ACUTE ILLNESS 07/21/2014 Patient Education: Patient Medication Summary Completed 07/21/2014 Visit Plan: Kenalog 40mg IM today Contin ue narendra and singulair Add Flonase 07/15/2014 Appointment: María Elena Appiah WPtel: [address] [place] [address] ACUTE ILLNESS 07/15/2014 Appointment: María Elena Appiah WPtel: [address] [place] [address] ACUTE ILLNESS 07/15/2014 Patient Education: Patient Medication Summary Completed 07/15/2014 Visit Plan: Will do metolazone 2.5mg prn with 6 potassium and see if causes as severe cramping Trial of of seroquel XR 50mg q PM with evening meal and let us know how works 05/18/2014 Appointment: María Elena Appiah WPtel: [address] [place], [place] [phone] 05/15 left message FOLLOW UP 05/18/2014 Patient Education: Patient Medication Summary Completed 05/18/2014 Appointment: María Elena Appiah WPtel: [address] [place], [place] [phone] [place] LAB 05/14/2014 Patient Education: Patient Medication Summary Completed 05/14/2014 Appointment: María Elena Appiah WPtel: [address] [place], [place] [phone] [place] INJECTION 04/22/2014 Visit Plan: Nimco today a nd finish abx given from urgent care 04/21/2014 Appointment: María Elena Appiah WPtel: [address] [place], [place] [phone] [place] INJECTION 04/21/2014 Patient Education: Patient Medication Summary Completed 04/21/2014 Appointment: June Flores WPtel: [address] [place], [place] [phone] ACUTE ILLNESS 03/04/2014 Patient Education: Patient Medication Summary Completed 03/04/2014 Appointment: María Elena Appiah WPtel: [address] [place], [place] [phone] [place] INJECTION 02/27/2014 Patient Education: Patient Medication Summary Completed 02/27/2014 Visit Plan: Cryotherapy as above to all lesions Patient wants to try no meds for insomnia for a while and see how goes 01/13/2014 Appointment: María Elena Appiah WPtel: [address] [place] [phone] OFFICE SURGERY 01/13/2014 Patient Education: Patient Medication Summary Completed 01/13/2014 Visit Plan: Stop Melatonin Stop Soma Tri al of trazadone 75mg q HS See ENT for possible tubes as has had chronic ETD and serous otitis media with numerous steroids 12/24/2013 Appointment: María Elena Appiah WPtel: [address] [place] [address] ACUTE ILLNESS 12/24/2013 Patient Education: Patient Medication Summary Completed 12/24/2013 Visit Plan: Saline nasal flushes prn. Ty lenol/Motrin prn headache. Notify if persists/symptoms worsening. 11/12/2013 Appointment: María Elena Appiah WPtel: [address] [place] [address] ACUTE ILLNESS 11/12/2013 Patient Education: Patient Medication Summary Completed 11/12/2013 Appointment: María Elena Appiah WPtel: [address] [place] [address] ACUTE ILLNESS 10/21/2013 Patient Education: Patient Medication Summary Completed 10/21/2013 Visit Plan: Sleep hygiene and sleep rout ine Melatonin 10mg q HS Support stockings and observe 09/22/2013 Appointment: María Elena Appiah WPtel: [address] [place] [address] ACUTE ILLNESS 09/22/2013 Patient Education: Patient Medication Summary Completed 09/22/2013 Appointment: June Flores WPtel: [address] [place] [address] ACUTE ILLNESS 08/27/2013 Patient Education: Patient Medication Summary Completed 08/27/2013 Visit Plan: Proceed with CT scan of head /neck Proceed with occipital nerve injections Butrans 20mcg patch weekly until can get into see Dr. Mcdonough for injections 08/04/2013 Appointment: María Elena Appiah WPtel: [address] [place] [address] FOLLOW UP 08/04/2013 Patient Education: Patient Medication Summary Completed 08/04/2013 Visit Plan: OMT done Daily neck stretche s, moist heat Increase Celebrex to 200mg BID Add flexeril 07/23/2013 Appointment: María Elena Appiah WPtel: [address] [place] [address] 07/22 voicemail FOLLOW UP 07/23/2013 Patient Education: Patient Medication Summary Completed 07/23/2013 Appointment: María Elena Appiah WPtel: [address] [place] [address] ACUTE ILLNESS 06/23/2013 Patient Education: Patient Medication Summary Completed 06/23/2013 Appointment: María Elena Appiah WPtel: [address] [place] [address] ACUTE ILLNESS 05/26/2013 Patient Education: Patient Medication Summary Completed 05/26/2013 Visit Plan: Decrease clonidine to 0.1mg TID If BP remains stable consider decreasing amlodopine Prednisone for 5 days BP check in 1mo 04/16/2013 Appointment: María Elena Appiah WPtel: [address] [place] [address] 04/14 pt called and confirmed appt FOLLOW UP 04/16/2013 Patient Education: Patient Medication Summary Completed 04/16/2013 Appointment: María Elena Appiah WPtel: [address] [place] [address] ACUTE ILLNESS 03/05/2013 Patient Education: Patient Medication Summary Completed 03/05/2013 Visit Plan: Pt has MARIA ELENA on with Dr. Mcdonough Continue Butrans patch Refill Hydrocodone early tomorrow 12/23/2012 Appointment: María Elena Appiah WPtel: [address] [place] [address] FOLLOW UP 12/23/2012 Patient Education: Patient Medication Summary Completed 12/23/2012 Appointment: Lashawn Eckert WPtel: [address] [place] [address] ACUTE ILLNESS 12/16/2012 Patient Education: Patient Medication Summary Completed 12/16/2012 Visit Plan: Proceed with updated MRI of LS spine Continue gabapentin and add soma and diclofenac Will likely need to go for another epidural 12/09/2012 Appointment: María Elena Appiah WPtel: [address] [place] [address] ACUTE ILLNESS 12/09/2012 Patient Education: Patient Medication Summary Completed 12/09/2012 Visit Plan: Injection as above Finish me drol dose pack Chiropracter this afternoon 12/04/2012 Appointment: María Elena Appiah WPtel: [address] [place] [address] ACUTE ILLNESS 12/04/2012 Patient Education: Patient Medication Summary Completed 12/04/2012 Appointment: Mary Tillman WPtel: [address] [place] [address] FOLLOW UP 11/22/2012 Patient Education: Patient Medication Summary Completed 11/22/2012 Appointment: María Elena Appiah WPtel: [address] [place] [address] ACUTE ILLNESS 11/21/2012 Patient Education: Patient Medication Summary Completed 11/21/2012 Appointment: María Elena Appiah WPtel: [address] [place] [address] BP CHECK 11/07/2012 Patient Education: Patient Medication Summary Completed 11/07/2012 Visit Plan: reports extra clonidine and extra amlodipine and extra alprazalam. extra Ketolorac and promethazine last night. Bystolic 10 mg QAM and will continue all other blood pressure meds. Pt. encouraged to rest and hydrate. Discussed stroke and CO symptoms. Pt. instructed to seek ER eval if symptoms worsen or headache persists. Pt. agrees to ER eval/EMS transport if symptoms worsen. BP re-check. 10/29/2012 Appointment: Lashawn Eckert WPtel: [address] [place] [address] ACUTE ILLNESS 10/29/2012 Patient Education: Patient Medication Summary Completed 10/29/2012 Appointment: María Elena Appiah WPtel: [address] [place], [place] [phone] ACUTE ILLNESS 10/14/2012 Patient Education: Patient Medication Summary Completed 10/14/2012 Appointment: María Elena Appiah WPtel: [address] [place], [place] [phone] UA 09/27/2012 Patient Education: Patient Medication Summary Completed 09/27/2012 Appointment: María Elena Appiah WPtel: [address] [place], [place] [phone] ACUTE ILLNESS 09/25/2012 Patient Education: Patient Medication Summary Completed 09/25/2012 Appointment: María Elena Appiah WPtel: [address] [place] [address] BP CHECK 09/24/2012 Appointment: María Elena Appiah WPtel: [address] [place] [address] ACUTE ILLNESS 08/29/2012 Patient Education: Patient Medication Summary Completed 08/29/2012 Visit Plan: Cryotherapy as above See Karlos m for 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 ACUTE ILLNESS 05/06/2012 Patient Education: Patient Medication Summary Completed 05/06/2012 Visit Plan: Pt wants to hold on any furt her sleep medications 04/03/2012 Appointment: María Elena Appiah WPtel: [address] [place] [address] FOLLOW UP 04/03/2012 Patient Education: Patient Medication Summary Completed 04/03/2012 Appointment: María Elena Appiahtel: [address] [place] [address] [place] FOLLOW UP 03/19/2012 Patient Education: Patient Medication Summary Completed 03/19/2012 Appointment: María Elena Appiahtel: [address] [place] [address] BP CHECK 02/22/2012 Patient Education: Patient Medication Summary Completed 02/22/2012 Appointment: María Elena Appiahtel: [address] [place] [address] BP CHECK 02/21/2012 Patient Education: Patient Medication Summary Completed 02/21/2012 Visit Plan: Doxycycline and bactroban fo r foot Supportive care on ankles and knees Add norvasc for BP 02/20/2012 Appointment: María Elena Appiahtel: [address] [place] [address] ER Follow UP 02/20/2012 Patient Education: Patient Medication Summary Completed 02/20/2012 Appointment: María Elena Appiahtel: [address] [place] [address] ACUTE ILLNESS 01/30/2012 Patient Education: Patient Medication Summary Completed 01/30/2012 Appointment: María Elena Appiahtel: [address] [place] [address] ACUTE ILLNESS 01/24/2012 Patient Education: Patient Medication Summary Completed 01/24/2012 Visit Plan: Daily back stretches, moist heat, Biofreeze prn OMT done 01/10/2012 Appointment: María Elena Appiahtel: [address] [place] [address] ACUTE ILLNESS 01/10/2012 Patient Education: Patient Medication Summary Completed 01/10/2012 Appointment: María Elena Appiahtel: [address] [place] [address] [place] FOLLOW UP 12/11/2011 Patient Education: Patient Medication Summary Completed 12/11/2011 Appointment: María Elena Appiahtel: [address] [place] [address] ACUTE ILLNESS 11/09/2011 Patient Education: Patient Medication Summary Completed 11/09/2011 Appointment: María Elena Appiah WPtel: [address] [place] [address] ACUTE ILLNESS 09/13/2011 Patient Education: Patient Medication Summary Completed 09/13/2011 Visit Plan: Check CBC, TSH, Free T4, CMP , ESR, Vit D, B12 now Start Prednisone today 08/31/2011 Appointment: María Elena Appiahtel: [address] [place] [address] ACUTE ILLNESS 08/31/2011 Patient Education: Patient Medication Summary Completed 08/31/2011 Appointment: María Elena Appiah WPtel: [address] [place] [address] [place] INJECTION 07/20/2011 Patient Education: Patient Medication Summary Completed 07/20/2011 Visit Plan: Continue current meds Monite r BP Cont stretches from PT 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 07/06/2011 Appointment: María Elena Appiahtel: [address] [place] [address] FOLLOW UP 07/06/2011 Patient Education: Patient Medication Summary Completed 07/06/2011 Appointment: María Elena Appiah WPtel: [address] [place] [address] [place] BP CHECK 06/06/2011 Patient Education: Patient Medication Summary Completed 06/06/2011 Visit Plan: Add Bystolic at 2.5mg QAM Ad d Robaxin 750mg 2 po q HS BP check in 2wks 05/22/2011 Appointment: María Elena Appiah WPtel: [address] [place] [address] FOLLOW UP 05/22/2011 Patient Education: Patient Medication Summary Completed 05/22/2011 Appointment: María Elena Appiah WPtel: [address] [place], [place] [phone] ER Follow UP 05/09/2011 Patient Education: Patient Medication Summary Completed 05/09/2011 Appointment: María Elena Appiah WPtel: [address] [place], [place] [phone] FOLLOW UP 02/22/2011 Visit Plan: Rx written for Hydrocodone 1 0/325mg #240 See Ortho 02/14/2011 Appointment: María Elena Appiah WPtel: [address] [place] [address] OMT 02/14/2011 Patient Education: Patient Medication Summary [...] lab work. 02/03/2011 Appointment: Lashawn Eckert WPtel: [address] [place], [place] [phone] ACUTE ILLNESS 02/03/2011 Patient Education: Patient Medication Summary Completed 02/03/2011 Visit Plan: OMT done Cont daily stretche s 01/31/2011 Appointment: María Elena Appiah WPtel: [address] [place], [place] [phone] ACUTE ILLNESS 01/31/2011 Patient Education: Patient Medication Summary Completed 01/31/2011 Visit Plan: Continue pain meds OMT done Proceed with PT No work this summer01/25/2011 Appointment: María Elena Appiahtel: [address] [place] [address] ACUTE ILLNESS 01/25/2011 Patient Education: Patient Medication Summary Completed 01/25/2011 Visit Plan: Start PT Long discussion abo ut getting pain meds from only us and can only have max of 4grams of tylenol per day Change to Hydrocodone 10/325mg 1- 2 po TID prn pain--#180 called to [facility] 01/18/2011 Appointment: María Elena Appiah WPtel: [address] [place] [address] FOLLOW UP 01/18/2011 Patient Education: Patient Medication Summary Completed 01/18/2011 Visit Plan: Daily back stretches, moist heat, Biofreeze prn 11/29/2010 Appointment: María Elena Appiahtel: [address] [place] [address] ER Follow UP 11/29/2010 Patient Education: Patient Medication Summary Completed 11/29/2010 Visit Plan: Saline nasal flushes prn. Ty lenol/Motrin prn headache. Notify if persists/symptoms worsening. Finish augmentin Add Medrol Dose Pack 10/10/2010 Appointment: María Elena Appiahtel: [address] [place], [place] [phone] ACUTE ILLNESS 10/10/2010 Patient Education: Patient Medication Summary Completed 10/10/2010 Visit Plan: Cryotherapy x3 to multiple l esions on both forearms 07/19/2010 Appointment: María Elena Appiahtel: [address] [place], [place] [phone] OFFICE SURGERY 07/19/2010 Patient Education: Patient Medication Summary Completed 07/19/2010 Appointment: María Elena Appiahtel: [address] [place], [place] [phone] BP CHECK 07/06/2010 Patient Education: Patient Medication Summary Completed 07/06/2010 Appointment: María Elena Appiah: [address] [place], [place] [phone] BP CHECK 06/30/2010 Patient Education: Patient Medication Summary Completed 06/30/2010 Appointment: María Elena Appiah WPtel: [address] [place], [place] [phone] BP CHECK 06/20/2010 Patient Education: Patient Medication Summary Completed 06/20/2010 Visit Plan: Change Diovan to Exforge 160 /5mg QD OMT done to thoracics BP check in 2wks 06/07/2010 Appointment: María Elena Appiah WPtel: [address] [place] [address] FOLLOW UP 06/07/2010 Patient Education: Patient Medication Summary Completed 06/07/2010 Appointment: María Elena Appiah WPtel: [address] [place] [address] BP CHECK 06/03/2010 Patient Education: Patient Medication Summary Completed 06/03/2010 Appointment: María Elena Appiah WPtel: [address] [place] [address] BP CHECK 06/01/2010 Patient Education: Patient Medication Summary Completed 06/01/2010 Visit Plan: Irritated skin tags to left neck x2 excised at base with scissors and base cauterized 05/30/2010 Appointment: María Elena Appiah WPtel: [address] [place] [address] OFFICE SURGERY 05/30/2010 Patient Education: Patient Medication Summary Completed 05/30/2010 Visit Plan: Saline nasal flushes prn. Ty lenol/Motrin prn headache. Notify if persists/symptoms worsening. Restart Nasonex Has allergy testing set for May 25 04/27/2010 Appointment: María Elena Appiah WPtel: [address] [place], [place] [phone] ACUTE ILLNESS 04/27/2010 Patient Education: Patient Medication Summary Completed 04/27/2010 Visit Plan: Saline nasal flushes prn. Ty lenol/Motrin prn headache. Notify if persists/symptoms worsening. Omnaris BID plus injections 04/05/2010 Appointment: María Elena Appiah WPtel: [address] [place] [address] ACUTE ILLNESS 04/05/2010 Patient Education: Patient Medication Summary Completed 04/05/2010 Visit Plan: Saline nasal flushes prn. Ty lenol/Motrin prn headache. Notify if persists/symptoms worsening. 03/09/2010 Appointment: María Elena Appiah WPtel: [address] [place] [address] ACUTE ILLNESS 03/09/2010 Patient Education: Patient Medication Summary Completed 03/09/2010 Visit Plan: Cont Clonidine as is Cont Pr emarin Fwup with surgery as scheduled 03/03/2010 Appointment: María Elena Appiahtel: [address] [place] [address] FOLLOW UP 03/03/2010 Patient Education: Patient Medication Summary Completed 03/03/2010 Visit Plan: Check Pelvic US now Dukee tacho Sal C vs Hysterectomy 01/17/2010 Appointment: María Elena Appiah WPtel: [address] [place] [address] ACUTE ILLNESS 01/17/2010 Patient Education: Patient Medication Summary Completed 01/17/2010 Visit Plan: Check fasting lab and schedu le Mammogram 2gm Na Diet Trial of Ambien 10mg qhs Fwup pending lab results 12/27/2009 Appointment: María Elena Appiah WPtel: [address] [place] [address] [place] ESTABLISHED PATIENT 12/27/2009 Patient Education: Patient Medication Summary Completed 12/27/2009 Referral: Canelo Overton WPtel: [phone] [place] [id number] Referral Initiated Referral: Philipp Flores WPtel: [address] [id number] [place] Referral Appointment Requested Instructions Comment . [...] to rest and hydrate. Discussed stroke and CO symptoms. Pt. instructed to seek ER eval [...]
[2020-03-13] MEDS ORDERED: TETANUS,DIPTH,PERTUSS P/F (BOOSTRIX) 0.5 ML VIAL IM ONE (04:15)
--- OUTSIDE RECORDS SUMMARY | 2020-03-13 04:16 | XMS REPORT | CCD ---
Author Author Gale Appiah D.O. Organization [facility] Address [address] [place] [address] Phone Care Team Providers Care Plating Foreman Name Role Phone María Elena Appiah D.O., PP Unavailable CCM Unavailable Summary Purpose Interface Exchange Insurance Providers Payer name Policy type / Coverage type Covered democrat ID Effective Begin Date Effective End Date [facility] Commercial Insurance [id number] Unknown Family History Family History data not found Social History Social History Element Codes Description Effective Dates Tobacco history SNOMED CT: [id number] Never smoker 05/22/2011 Allergies, Adverse Reactions, Alerts [...] Fill Instructions Premarin 1.25 mg tablet RxNorm: 637142 1 Tablet(s) Oral QD 02/16/20 20 05/15/2020 Active celecoxib 200 mg capsule RxNorm: 918867 1 Capsule(s) Or al two times a day as needed for pain 02/16/2020 05/15/2020 Active Farxiga 10 mg tablet RxNorm: 3916375 1 Tablet(s) Oral QAM 02/13/2020 05/13/2020 Active Farxiga 10 mg tablet RxNorm: 5210553 1 Tablet(s) Oral QAM 02/13/2020 02/12/2020 Inactive Keflex 500 mg capsule RxNorm: 826076 1 Capsule(s) Oral two time s a day 02/12/2020 02/19/2020 Active Lipitor 10 mg tablet RxNorm: 405177 TAKE ONE TABLET BY MOUTH DAILY 01/23/2020 No Stop Date Active Januvia 100 mg tablet RxNorm: 993575 TAKE ONE TABLET BY MOUTH DAILY 01/22/2020 No Stop Date Active gabapentin 300 mg capsule RxNorm: 311679 TAKE ONE CAPSU LE BY MOUTH EVERY NIGHT AT BEDTIME 01/22/2020 No Stop Date Active allopurinol 300 mg tablet RxNorm: 914433 TAKE ONE TABLET BY LOPEZ TH DAILY 01/22/2020 No Stop Date Active Klor-Con 8 mEq tablet,extended release RxNorm: 956224 T FARRUKH ONE TABLET BY MOUTH TWICE A DAY 01/22/2020 No Stop Date Active doxepin 25 mg capsule RxNorm: 4159653 TAKE ONE CAPSULE B Y MOUTH EVERY NIGHT AT BEDTIME NEEDED FOR SLEEP 01/22/2020 No Stop Date Active glimepiride 4 mg tablet RxNorm: 795704 1 Tablet(s) Oral two times a day replaces 2mg dose 01/13/2020 04/12/2020 Active lisinopril 40 mg tablet RxNorm: 507289 1 Tablet(s) Oral QD repl aces 20mg dose 01/13/2020 04/12/2020 Active hydrocodone 10 mg-acetaminophen 325 mg tablet RxNorm: 023946 1-2 Tablet(s) Oral three times a day as needed for pain 01/12/2020 No Stop Date Active cyclobenzaprine 10 mg tablet RxNorm: 798541 TAKE ONE TA BLET BY MOUTH THREE TIMES A DAY NEEDED FOR MUSCLE SPASMS 01/05/2020 No Stop Date Active triamterene 75 mg-hydrochlorothiazide 50 mg tablet RxNorm: 3 96819 TAKE ONE TABLET BY MOUTH DAILY 12/29/2019 No Stop Date Active Klor-Con 8 mEq tablet,extended release RxNorm: 691270 T FARRUKH ONE TABLET BY MOUTH TWICE A DAY 12/19/2019 01/21/2020 Inactive allopurinol 300 mg tablet RxNorm: 538557 TAKE ONE TABLET BY LOPEZ TH DAILY 12/19/2019 01/21/2020 Inactive glimepiride 2 mg tablet RxNorm: 480396 TAKE ONE TABLET BY MOUTH TWICE A DAY 12/19/2019 01/12/2020 Inactive hydrocodone 10 mg-acetaminophen 325 mg tablet RxNorm: 533506 1-2 Tablet(s) Oral three times a day as needed for pain 12/10/2019 01/11/2020 Inactive Januvia 100 mg tablet RxNorm: 722599 1 Tablet(s) Oral QD 11/20/2019 0 11/20/2019 Inactive glimepiride 2 mg tablet RxNorm: 065267 1 Tablet(s) Oral two sawyer es a day 11/20/2019 12/18/2019 Inactive cyclobenzaprine 10 mg tablet RxNorm: 397190 TAKE ONE TA BLET BY MOUTH THREE TIMES A DAY NEEDED FOR MUSCLE SPASMS 11/17/2019 01/04/2020 Inactive doxepin 25 mg capsule RxNorm: 0290270 TAKE ONE CAPSULE B Y MOUTH EVERY NIGHT AT BEDTIME NEEDED FOR SLEEP 11/16/2019 01/21/2020 Inactive Klor-Con 8 mEq tablet,extended release RxNorm: 694575 T FARRUKH ONE TABLET BY MOUTH TWICE A DAY 11/16/2019 12/18/2019 Inactive hydrocodone 10 mg-acetaminophen 325 mg tablet RxNorm: 843013 1-2 Tablet(s) Oral three times a day as needed for pain 11/10/2019 12/09/2019 Inactive cyclobenzaprine 10 mg tablet RxNorm: 321032 TAKE ONE TA BLET BY MOUTH THREE TIMES A DAY NEEDED FOR MUSCLE SPASMS 10/23/2019 11/16/2019 Inactive duloxetine 60 mg capsule,delayed release RxNorm: 307737 1 Capsu le(s) Oral QD 10/17/2019 04/13/2020 Active Singulair 10 mg tablet RxNorm: 865704 1 Tablet(s) Oral QD 10/17/2019 04/14/2020 Active metoprolol tartrate 100 mg tablet RxNorm: 595153 1 Tabl et(s) Oral two times a day 10/17/2019 04/13/2020 Active clonidine HCl 0.1 mg tablet RxNorm: 220563 1 Tablet(s) Oral fou r times a day 10/17/2019 04/13/2020 Active celecoxib 200 mg capsule RxNorm: 895253 1 Capsule(s) Or al two times a day as needed for pain 10/17/2019 02/15/2020 Inactive lisinopril 20 mg tablet RxNorm: 155180 1 Tablet(s) Oral QD 10/17/19 20 01/12/2020 Inactive gabapentin 300 mg capsule RxNorm: 440460 1 Capsule(s) O ral every night at bedtime 10/17/2019 01/15/2020 Inactive Klor-Con 8 mEq tablet,extended release RxNorm: 673987 1 Tablet(s) Oral two times a day 10/17/2019 11/15/2019 Inactive Januvia 100 mg tablet RxNorm: 155468 1 Tablet(s) Oral QD 10/17/2019 0 01/12/2020 Inactive Lipitor 10 mg tablet RxNorm: 973001 1 Tablet(s) Oral QD 10/17/2019 Inactive Steglatro 15 mg tablet RxNorm: 0133485 1 Tablet(s) Oral QD 10/17/1902/12/2020 Inactive Glyxambi 25 mg-5 mg tablet RxNorm: 4002404 1 Tablet(s) Oral QD 01/202010/16/2019 Inactive Patient will bring in copay discount card as well Glyxambi 25 mg-5 mg tablet RxNorm: 7183249 1 Tablet(s) Oral QD 01/202010/14/2019 Inactive Patient will bring in copay discount card as well Keflex 500 mg capsule RxNorm: 246214 1 Capsule(s) Oral two time s a day 10/07/2019 10/14/2019 Inactive Premarin 1.25 mg tablet RxNorm: 962657 1 Tablet(s) Oral QD 09/30/1902/15/2020 Inactive hydrocodone 10 mg-acetaminophen 325 mg tablet RxNorm: 909359 1-2 Tablet(s) Oral three times a day as needed for pain 09/30/2019 09/30/2019 Inactive baclofen 10 mg tablet RxNorm: 932150 TAKE ONE TABLET BY MOUTH THREE TIMES A DAY NEEDED 09/19/2019 No Stop Date Active gabapentin 300 mg capsule RxNorm: 285507 TAKE ONE CAPSU LE BY MOUTH EVERY NIGHT AT BEDTIME 09/19/2019 10/16/2019 Inactive Klor-Con 8 mEq tablet,extended release RxNorm: 247088 T FARRUKH ONE TABLET BY MOUTH TWICE A DAY 1 Tablet(s) Oral two times a day 09/19/2019 10/16/2019 Renu ctive hydrocodone 10 mg-acetaminophen 325 mg tablet RxNorm: 562786 1-2 Tablet(s) Oral three times a day as needed for pain 09/19/2019 09/29/2019 Inactive duloxetine 60 mg capsule,delayed release RxNorm: 398284 TAKE ONE CAPSULE BY MOUTH DAILY 09/11/2019 10/16/2019 Inactive Lipitor 10 mg tablet RxNorm: 822912 TAKE ONE TABLET BY MOUTH AT BEDTIME 09/11/2019 10/16/2019 Inactive lisinopril 20 mg tablet RxNorm: 453804 TAKE ONE TABLET BY MOUTH DAILY .... THIS REPLACE 10MG TABLETS 09/11/2019 10/16/2019 Inactive triamterene 75 mg-hydrochlorothiazide 50 mg tablet RxNorm: 3 78329 TAKE ONE TABLET BY MOUTH DAILY 09/11/2019 12/28/2019 Inactive allopurinol 300 mg tablet RxNorm: 082562 TAKE ONE TABLET BY LOPEZ TH DAILY 09/11/2019 12/18/2019 Inactive celecoxib 200 mg capsule RxNorm: 925622 TAKE ONE CAPSUL E BY MOUTH TWICE A DAY NEEDED FOR PAIN 09/11/2019 10/16/2019 Inactive clonidine HCl 0.1 mg tablet RxNorm: 945776 TAKE ONE TAB LET BY MOUTH FOUR TIMES A DAY 09/11/2019 10/16/2019 Inactive doxepin 25 mg capsule RxNorm: 1442468 1 Capsule(s) Oral every night at bedtime as needed for sleep 08/21/2019 11/15/2019 Inactive hydrocodone 10 mg-acetaminophen 325 mg tablet RxNorm: 288479 1-2 Tablet(s) PO TID 08/12/2019 09/29/2019 Inactive as needed for pa in - Previous quantity #240, will start dosing for #180 in April [address] Ignacio. Medrol (Dustin) 4 mg tablets in a dose pack RxNorm: 006460 Tablet(s) Oral As Directed 07/21/2019 09/29/2019 Inactive Premarin 1.25 mg tablet RxNorm: 195230 1 Tablet(s) Oral QD 07/02/2009/29/2019 Inactive hydrocodone 10 mg-acetaminophen 325 mg tablet RxNorm: 168768 1-2 Tablet(s) PO TID 07/01/2019 08/11/2019 Inactive as needed for pa in - Previous quantity #240, will start dosing for #180 in April [address] Ignacio. gabapentin 300 mg capsule RxNorm: 517265 1 Capsule(s) PO QHS 201809/18/2019 Inactive celecoxib 200 mg capsule RxNorm: 724069 1 Capsule(s) Or al two times a day as needed for pain 06/27/2019 06/27/2019 Inactive doxepin 25 mg capsule RxNorm: 3775497 TAKE ONE CAPSULE B Y MOUTH EVERY NIGHT AT BEDTIME NEEDED FOR SLEEP 06/24/2019 08/20/2019 Inactive Singulair 10 mg tablet RxNorm: 786265 TAKE ONE TABLET BY MOUTH JOSÉ Y 06/24/2019 10/16/2019 Inactive furosemide 40 mg tablet RxNorm: 866084 TAKE ONE TABLET BY MOUTH EVERY MORNING NEEDED FOR EDEMA . TAKE WITH POTASSIUM 06/24/2019 01/12/2020 Inactive lisinopril 20 mg tablet RxNorm: 088444 TAKE ONE TABLET BY MOUTH DAILY .... THIS REPLACE 10MG TABLETS 06/24/2019 09/10/2019 Inactive nystatin-triamcinolone 100,000 unit/g-0.1 % topical cream Rx Norm: 8703677 1 Application Topical two times a day 06/12/2019 06/19/2019 Inactive apply BID for 1 week nystatin-triamcinolone 100,000 unit/g-0.1 % topical cream Rx Norm: 4062371 1 Application Topical two times a day 06/12/2019 06/11/2019 Inactive apply BID for 1 week hydrocodone 10 mg-acetaminophen 325 mg tablet RxNorm: 409716 1-2 Tablet(s) PO QID as needed for pain MUST LAST 30 DAYS 05/28/2019 06/26/2019 Inactiv e (Response to an electronic controlled substance refill request - RxReferenceNumber: [id number]) baclofen 20 mg tablet RxNorm: 968342 1 Tablet(s) PO TID as needed for muscle spasm 05/19/2019 05/27/2019 Inactive gabapentin 300 mg capsule RxNorm: 387118 1 Capsule(s) PO QHS 201805/27/2019 Inactive lisinopril 20 mg tablet RxNorm: 278661 1 Tablet(s) PO Q D TAKE ONE TABLET BY MOUTH DAILY, REPLACES 10 MG DOSE 05/19/2019 06/23/2019 Inactive doxepin 25 mg capsule RxNorm: 5368961 TAKE ONE CAPSULE B Y MOUTH EVERY NIGHT AT BEDTIME NEEDED FOR SLEEP 05/16/2019 06/14/2019 Inactive lisinopril 20 mg tablet RxNorm: 103567 TAKE ONE TABLET BY MOUTH DAILY, REPLACES 10 MG DOSE 05/16/2019 05/18/2019 Inactive Singulair 10 mg tablet RxNorm: 827918 TAKE ONE TABLET BY MOUTH JOSÉ Y 05/16/2019 06/14/2019 Inactive gabapentin 300 mg capsule RxNorm: 597486 1 Capsule(s) PO QHS 201805/04/2019 Inactive estropipate 1.5 mg tablet RxNorm: 121651 1 Tablet(s) PO QD 05/05/20 19 05/27/2019 Inactive estropipate 1.5 mg tablet RxNorm: 131779 1 Tablet(s) PO QD 05/05/20 19 05/04/2019 Inactive gabapentin 300 mg capsule RxNorm: 719845 1 Capsule(s) PO QHS 201805/18/2019 Inactive hydrocodone 10 mg-acetaminophen 325 mg tablet RxNorm: 209839 1-2 Tablet(s) PO QID as needed for pain MUST LAST 30 DAYS 04/25/2019 05/24/2019 Inactiv e (Response to an electronic controlled substance refill request - RxReferenceNumber: [id number]) cyclobenzaprine 10 mg tablet RxNorm: 728386 TAKE ONE TA BLET BY MOUTH THREE TIMES A DAY NEEDED FOR MUSCLE SPASMS 04/24/2019 05/18/2019 Inactive metoprolol tartrate 100 mg tablet RxNorm: 454949 TAKE O NE TABLET BY MOUTH TWICE A DAY 04/24/2019 10/16/2019 Inactive Lyrica 75 mg capsule RxNorm: 142237 1 Capsule(s) PO QHS 03/25/2019 Inactive duloxetine 60 mg capsule,delayed release RxNorm: 646632 TAKE ONE CAPSULE BY MOUTH DAILY 03/21/2019 05/19/2019 Inactive triamterene 75 mg-hydrochlorothiazide 50 mg tablet RxNorm: 3 79252 TAKE ONE TABLET BY MOUTH DAILY 03/21/2019 05/19/2019 Inactive Klor-Con 8 mEq tablet,extended release RxNorm: 412364 T FARRUKH ONE TABLET BY MOUTH TWICE A DAY 03/21/2019 09/18/2019 Inactive Lipitor 10 mg tablet RxNorm: 659533 TAKE ONE TABLET BY MOUTH AT BEDTIME 03/21/2019 09/10/2019 Inactive clonidine HCl 0.1 mg tablet RxNorm: 674129 TAKE ONE TAB LET BY MOUTH FOUR TIMES A DAY 03/21/2019 05/19/2019 Inactive allopurinol 300 mg tablet RxNorm: 632110 TAKE ONE TABLET BY LOPEZ TH DAILY 03/21/2019 05/19/2019 Inactive hydrocodone 10 mg-acetaminophen 325 mg tablet RxNorm: 551830 1-2 Tablet(s) PO QID as needed for pain MUST LAST 30 DAYS 02/28/2019 03/29/2019 Inactiv e (Response to an electronic controlled substance refill request - [facility] [id number]) furosemide 40 mg tablet RxNorm: 437472 TAKE ONE TABLET BY MOUTH EVERY MORNING NEEDED FOR EDEMA . TAKE WITH POTASSIUM 02/21/2019 03/22/2019 Inactive cyclobenzaprine 10 mg tablet RxNorm: 821827 TAKE ONE TA BLET BY MOUTH THREE TIMES A DAY NEEDED FOR MUSCLE SPASMS 02/21/2019 04/21/2019 Inactive lisinopril 20 mg tablet RxNorm: 120155 TAKE ONE TABLET BY MOUTH DAILY, REPLACES 10 MG DOSE 02/21/2019 05/15/2019 Inactive doxepin 25 mg capsule RxNorm: 7275197 TAKE ONE CAPSULE B Y MOUTH EVERY NIGHT AT BEDTIME NEEDED FOR SLEEP 02/21/2019 05/15/2019 Inactive nystatin 100,000 unit/gram topical cream RxNorm: 521108 APPLY TO AFFECTED AREA(S) TWO TIMES A DAY 02/21/2019 03/22/2019 Inactive estradiol 1 mg tablet RxNorm: 817883 2 Tablet(s) PO QD replaces premarin 01/22/2019 05/04/2019 Inactive lisinopril 20 mg tablet RxNorm: 856276 TAKE ONE TABLET BY MOUTH DAILY, REPLACES 10 MG DOSE 01/20/2019 02/18/2019 Inactive cyclobenzaprine 10 mg tablet RxNorm: 733985 TAKE ONE TA BLET BY MOUTH THREE TIMES A DAY NEEDED FOR MUSCLE SPASMS 01/20/2019 02/18/2019 Inactive metoprolol tartrate 100 mg tablet RxNorm: 705538 TAKE O NE TABLET BY MOUTH TWICE A DAY 01/20/2019 02/18/2019 Inactive cyclobenzaprine 10 mg tablet RxNorm: 072230 TAKE ONE TA BLET BY MOUTH THREE TIMES A DAY NEEDED FOR MUSCLE SPASMS 12/19/2018 01/17/2019 Inactive lisinopril 20 mg tablet RxNorm: 447113 TAKE ONE TABLET BY MOUTH DAILY, REPLACES 10 MG DOSE 12/19/2018 01/17/2019 Inactive duloxetine 60 mg capsule,delayed release RxNorm: 357286 TAKE ONE CAPSULE BY MOUTH DAILY 12/19/2018 01/17/2019 Inactive Lipitor 10 mg tablet RxNorm: 239850 TAKE ONE TABLET BY MOUTH AT BEDTIME 12/19/2018 01/17/2019 Inactive cyclobenzaprine 10 mg tablet RxNorm: 855193 1 Tablet(s) PO TID as needed for muscle spasm 11/19/2018 12/18/2018 Inactive Singulair 10 mg tablet RxNorm: 870263 1 Tablet(s) PO QD 11/19/2018 Inactive lisinopril 20 mg tablet RxNorm: 257859 TAKE ONE TABLET BY MOUTH DAILY, REPLACES 10 MG DOSE 11/15/2018 12/18/2018 Inactive hydrocodone 10 mg-acetaminophen 325 mg tablet RxNorm: 964866 1-2 Tablet(s) PO QID as needed for pain MUST LAST 30 DAYS 11/13/2018 12/12/2018 Inactiv e (Response to an electronic controlled substance refill request - RxReferenceNumber: [id number]) nystatin 100,000 unit/gram topical cream RxNorm: 704899 APPLY TO AFFECTED AREA(S) TWO TIMES A DAY 10/23/2018 11/06/2018 Inactive lisinopril 20 mg tablet RxNorm: 612560 1 Tablet(s) PO QD replac es 10mg dose 10/18/2018 11/14/2018 Inactive hydrocodone 10 mg-acetaminophen 325 mg tablet RxNorm: 896955 1-2 Tablet(s) QID as needed for pain MUST LAST 30 DAYS 10/08/2018 11/06/2018 Inactive (Response to an electronic controlled substance refill request - RxReferenceNumber: [id number]) lisinopril 10 mg tablet RxNorm: 532031 1 Tablet(s) PO QD 10/03/2018 0 01/21/2019 Inactive Celebrex 200 mg capsule RxNorm: 227277 TAKE ONE CAPSULE BY MOUT H TWICE A DAY 09/30/2018 05/04/2019 Inactive cyclobenzaprine 10 mg tablet RxNorm: 095012 TAKE ONE TA BLET BY MOUTH THREE TIMES A DAY NEEDED FOR MUSCLE SPASMS 09/30/2018 11/18/2018 Inactive doxepin 25 mg capsule RxNorm: 3654455 TAKE ONE CAPSULE B Y MOUTH EVERY NIGHT AT BEDTIME NEEDED 09/05/2018 10/16/2018 Inactive omeprazole 40 mg capsule,delayed release RxNorm: 509182 TAKE ONE CAPSULE BY MOUTH DAILY 09/05/2018 01/21/2019 Inactive furosemide 40 mg tablet RxNorm: 550138 TAKE ONE TABLET BY MOUTH EVERY MORNING NEEDED FOR EDEMA . TAKE WITH POTASSIUM 09/05/2018 11/03/2018 Inactive phentermine 37.5 mg tablet RxNorm: 476862 1 Tablet(s) PO QAM 201701/21/2019 Inactive doxepin 25 mg capsule RxNorm: 6759775 1 Capsule(s) PO QH S as needed for sleep TAKE ONE CAPSULE BY MOUTH EVERY NIGHT AT BEDTIME NEEDED 08/27/2018 09/04/2018 Inactive Keflex 500 mg capsule RxNorm: 763298 1 Capsule(s) PO TID 08/09/2018 1 10/19/2017 Inactive Diflucan 100 mg tablet RxNorm: 149324 1 Tablet(s) PO QD 08/09/2018 Inactive Premarin 1.25 mg tablet RxNorm: 026394 2 Tablet(s) PO QD 08/09/2018 0 05/04/2019 Inactive Zofran ODT 4 mg disintegrating tablet RxNorm: 373519 1 Tablet(s) PO Q4H as needed for nausea 08/09/2018 01/21/2019 Inactive metoprolol tartrate 100 mg tablet RxNorm: 270173 TAKE O NE TABLET BY MOUTH TWICE A DAY 2018 10/04/2018 Inactive doxepin 25 mg capsule RxNorm: 2473082 TAKE ONE CAPSULE B Y MOUTH EVERY NIGHT AT BEDTIME NEEDED 2018 08/26/2018 Inactive cyclobenzaprine 10 mg tablet RxNorm: 859161 TAKE ONE TA BLET BY MOUTH THREE TIMES A DAY NEEDED FOR MUSCLE SPASMS 2018 09/29/2018 Inactive hydrocodone 10 mg-acetaminophen 325 mg tablet RxNorm: 271978 1-2 Tablet(s) QID as needed for pain MUST LAST 30 DAYS 07/29/2018 08/27/2018 Inactive (Response to an electronic controlled substance refill request - RxReferenceNumber: [id number]) nystatin 100,000 unit/gram topical powder RxNorm: 654581 Applic ation TOP BID 07/22/2018 08/04/2018 Inactive doxepin 25 mg capsule RxNorm: 5483050 1 Capsule(s) PO QHS as needed 07/22/2018 08/05/2018 Inactive triamterene 75 mg-hydrochlorothiazide 50 mg tablet RxNorm: 3 53270 TAKE ONE TABLET BY MOUTH DAILY 07/05/2018 10/02/2018 Inactive duloxetine 60 mg capsule,delayed release RxNorm: 933326 TAKE ONE CAPSULE BY MOUTH DAILY 07/05/2018 09/02/2018 Inactive Klor-Con 8 mEq tablet,extended release RxNorm: 309894 T FARRUKH ONE TABLET BY MOUTH TWICE A DAY 07/05/2018 10/02/2018 Inactive Lipitor 10 mg tablet RxNorm: 887382 TAKE ONE TABLET BY MOUTH AT BEDTIME 07/05/2018 09/02/2018 Inactive allopurinol 300 mg tablet RxNorm: 546164 TAKE ONE TABLET BY LOPEZ TH DAILY 07/05/2018 10/02/2018 Inactive clonidine HCl 0.1 mg tablet RxNorm: 605816 TAKE ONE TAB LET BY MOUTH FOUR TIMES A DAY 07/05/2018 10/02/2018 Inactive hydrocodone 10 mg-acetaminophen 325 mg tablet RxNorm: 425204 1-2 Tablet(s) QID as needed for pain MUST LAST 30 DAYS 06/28/2018 07/27/2018 Inactive (Response to an electronic controlled substance refill request - RxReferenceNumber: [id number]) MediHoney (calcium alginate-honey) 4" X 5" bandage RxNorm: 1 Application TOP QD 06/17/2018 06/26/2018 Inactive honey-hydrocolloid dressing 4" X 5" RxNorm: 1 Application TOP QD 06/17/2018 07/16/2018 Inactive furosemide 40 mg tablet RxNorm: 406521 TAKE ONE TABLET BY MOUTH EVERY MORNING NEEDED FOR EDEMA . TAKE WITH POTASSIUM 06/10/2018 07/09/2018 Inactive This is a refill request. hydrocodone 10 mg-acetaminophen 325 mg tablet RxNorm: 616402 1-2 Tablet(s) QID as needed for pain MUST LAST 30 DAYS 05/30/2018 06/27/2018 Inactive (Response to an electronic controlled substance refill request - RxReferenceNumber: [id number]) acyclovir 800 mg tablet RxNorm: 689531 1 Tablet(s) PO 5x day 201705/22/2018 Inactive Premarin 1.25 mg tablet RxNorm: 298284 1-2 Tablet(s) PO QD 05/15/20 18 07/13/2018 Inactive cyclobenzaprine 10 mg tablet RxNorm: 331329 1 Tablet(s) PO TID as needed for muscle spasm 05/09/2018 05/08/2018 Inactive Medrol (Dustin) 4 mg tablets in a dose pack RxNorm: 242140 Tablet(s) PO As Directed 05/02/2018 06/16/2018 Inactive hydrocodone 10 mg-acetaminophen 325 mg tablet RxNorm: 495927 1-2 Tablet(s) QID as needed for pain MUST LAST 30 DAYS 04/30/2018 05/29/2018 Inactive (Response to an electronic controlled substance refill request - RxReferenceNumber: [id number]) duloxetine 60 mg capsule,delayed release RxNorm: 336754 TAKE ONE CAPSULE BY MOUTH DAILY 04/16/2018 05/15/2018 Inactive Celebrex 200 mg capsule RxNorm: 114627 TAKE ONE CAPSULE BY MOUT H TWICE A DAY 04/16/2018 06/14/2018 Inactive Singulair 10 mg tablet RxNorm: 388632 TAKE ONE TABLET BY MOUTH JOSÉ Y 04/16/2018 11/19/2018 Inactive Lipitor 10 mg tablet RxNorm: 569391 TAKE ONE TABLET BY MOUTH AT BEDTIME 04/16/2018 05/15/2018 Inactive hydrocodone 10 mg-acetaminophen 325 mg tablet RxNorm: 796327 1-2 Tablet(s) QID as needed for pain MUST LAST 30 DAYS 03/29/2018 04/27/2018 Inactive (Response to an electronic controlled substance refill request - RxReferenceNumber: [id number]) cyclobenzaprine 10 mg tablet RxNorm: 568842 1 Tablet(s) PO TID as needed for muscle spasm 03/18/2018 05/09/2018 Inactive omeprazole 40 mg capsule,delayed release RxNorm: 446302 1 Capsu le(s) PO QD 02/26/2018 08/24/2018 Inactive hydrocodone 10 mg-acetaminophen 325 mg tablet RxNorm: 069514 1-2 Tablet(s) QID as needed for pain MUST LAST 30 DAYS 02/26/2018 03/27/2018 Inactive (Response to an electronic controlled substance refill request - RxReferenceNumber: [id number]) metoprolol tartrate 100 mg tablet RxNorm: 276693 1 Tablet(s) PO BID 02/18/2018 08/05/2018 Inactive Lyrica 75 mg capsule RxNorm: 830411 1 Capsule(s) PO QHS 01/30/2018 Inactive phentermine 37.5 mg tablet RxNorm: 929243 1 Tablet(s) PO QAM 201706/16/2018 Inactive hydrocodone 10 mg-acetaminophen 325 mg tablet RxNorm: 845170 1-2 Tablet(s) QID as needed for pain MUST LAST 30 DAYS 01/29/2018 02/25/2018 Inactive (Response to an electronic controlled substance refill request - RxReferenceNumber: [id number]) Klor-Con 8 mEq tablet,extended release RxNorm: 145790 1 Tablet( s) PO BID 01/14/2018 07/04/2018 Inactive allopurinol 300 mg tablet RxNorm: 121897 1 Tablet(s) PO QD 01/15/2007/04/2018 Inactive Lipitor 10 mg tablet RxNorm: 500659 1 Tablet(s) PO QHS 01/14/201812/2017 Inactive triamterene 75 mg-hydrochlorothiazide 50 mg tablet RxNorm: 3 39842 1 Tablet(s) PO QD 01/14/2018 07/04/2018 Inactive hydrocodone 10 mg-acetaminophen 325 mg tablet RxNorm: 587001 1-2 Tablet(s) QID as needed for pain MUST LAST 30 DAYS 12/27/2017 01/25/2018 Inactive (Response to an electronic controlled substance refill request - RxReferenceNumber: [id number]) Onglyza 5 mg tablet RxNorm: 161469 1 Tablet(s) PO QD 12/18/201701/29 Inactive metformin 500 mg tablet RxNorm: 258382 1 Tablet(s) PO BID 12/11/2017 12/10/2017 Inactive metformin 500 mg tablet RxNorm: 209545 1 Tablet(s) PO BID 12/11/2017 12/17/2017 Inactive furosemide 40 mg tablet RxNorm: 574121 1 Tablet(s) PO Q AM prn edema--take with potassium 12/11/2017 06/08/2018 Inactive cyclobenzaprine 10 mg tablet RxNorm: 278143 1 Tablet(s) PO TID as needed for muscle spasm 12/11/2017 03/18/2018 Inactive hydrocodone 10 mg-acetaminophen 325 mg tablet RxNorm: 521799 1-2 Tablet(s) QID as needed for pain MUST LAST 30 DAYS 10/23/2017 11/21/2017 Inactive (Response to an electronic controlled substance refill request - RxReferenceNumber: [id number]) Lipitor 10 mg tablet RxNorm: 656805 1 Tablet(s) PO QHS 10/16/201703/2018 Inactive cyclobenzaprine 10 mg tablet RxNorm: 668612 1 Tablet(s) PO TID as needed for muscle spasm 10/09/2017 12/10/2017 Inactive hydroxyzine HCl 25 mg tablet RxNorm: 506629 1 Tablet(s) PO BID as needed for anxiety 09/20/2017 01/29/2018 Inactive Effexor XR 75 mg capsule,extended release RxNorm: 587434 1 Caps ule(s) PO QD 09/20/2017 01/29/2018 Inactive metoprolol tartrate 100 mg tablet RxNorm: 209535 1 Tablet(s) PO BID 08/20/2017 02/18/2018 Inactive baclofen 20 mg tablet RxNorm: 965722 1 Tablet(s) PO TID as needed for muscle spasm 08/20/2017 01/21/2019 Inactive clonidine HCl 0.1 mg tablet RxNorm: 567617 1 Tablet(s) PO QID 08/2005/16/2018 Inactive Seroquel 25 mg tablet RxNorm: 449329 1 Tablet(s) PO QHS 08/17/2017 Inactive Seroquel 25 mg tablet RxNorm: 561584 1 Tablet(s) PO QHS 08/17/2017 Inactive Diflucan 100 mg tablet RxNorm: 885220 TAKE ONE TABLET BY MOUTH JOSÉ Y 07/25/2017 08/07/2017 Inactive hydrocodone 10 mg-acetaminophen 325 mg tablet RxNorm: 209589 1-2 Tablet(s) QID as needed for pain MUST LAST 30 DAYS 07/19/2017 08/17/2017 Inactive (Response to an electronic controlled substance refill request - RxReferenceNumber: [id number]) clindamycin 300 mg capsule RxNorm: 117609 1 Capsule(s) PO TID 07/1907/28/2017 Inactive clotrimazole-betamethasone 1 %-0.05 % topical cream RxNorm: 471204 Application TOP BID to elbow rash 07/19/2017 06/16/2018 Inactive Singulair 10 mg tablet RxNorm: 626639 Tablet(s) TAKE ONE TABLET BY MOUTH DAILY 07/18/2017 04/13/2018 Inactive triamterene 75 mg-hydrochlorothiazide 50 mg tablet RxNorm: 3 52387 1 Tablet(s) PO QD 07/18/2017 01/14/2018 Inactive Celebrex 200 mg capsule RxNorm: 116474 Capsule(s) TAKE ONE CAPSULE BY MOUTH TWICE A DAY 07/18/2017 10/15/2017 Inactive hydrocodone 10 mg-acetaminophen 325 mg tablet RxNorm: 199516 1-2 Tablet(s) QID as needed for pain MUST LAST 30 DAYS 06/19/2017 07/18/2017 Inactive (Response to an electronic controlled substance refill request - RxReferenceNumber: [id number]) hydrocodone 10 mg-acetaminophen 325 mg tablet RxNorm: 675492 1-2 Tablet(s) QID as needed for pain MUST LAST 30 DAYS 06/19/2017 06/18/2017 Inactive (Response to an electronic controlled substance refill request - RxReferenceNumber: [id number]) baclofen 20 mg tablet RxNorm: 323501 1 Tablet(s) PO TID as needed for muscle spasm 06/18/2017 08/20/2017 Inactive Medrol (Dustin) 4 mg tablets in a dose pack RxNorm: 189541 Tablet(s) PO As Directed 06/05/2017 07/18/2017 Inactive omeprazole 40 mg capsule,delayed release RxNorm: 444538 1 Capsu le(s) PO QD 04/20/2017 10/16/2017 Inactive Premarin 1.25 mg tablet RxNorm: 424272 1-2 Tablet(s) PO QD 04/11/20 17 05/15/2018 Inactive duloxetine 60 mg capsule,delayed release RxNorm: 184780 1 Capsu le(s) PO QD 04/11/2017 09/19/2017 Inactive furosemide 40 mg tablet RxNorm: 795040 1 Tablet(s) PO Q AM prn edema--take with potassium 04/11/2017 12/11/2017 Inactive Klor-Con 8 mEq tablet,extended release RxNorm: 689001 1 Tablet( s) PO BID 04/11/2017 01/14/2018 Inactive Lipitor 10 mg tablet RxNorm: 889039 1 Tablet(s) PO QHS 04/11/201702/2018 Inactive amlodipine 5 mg-benazepril 20 mg capsule RxNorm: 942376 1 Capsu le(s) PO QD 04/11/2017 01/29/2018 Inactive allopurinol 300 mg tablet RxNorm: 453410 1 Tablet(s) PO QD 04/11/20 17 01/14/2018 Inactive clonidine HCl 0.1 mg tablet RxNorm: 694519 1 Tablet(s) PO QID 04/0508/19/2017 Inactive baclofen 20 mg tablet RxNorm: 109504 1 Tablet(s) PO TID as needed for muscle spasm 04/02/2017 06/18/2017 Inactive Premarin 1.25 mg tablet RxNorm: 635657 1-2 Tablet(s) PO QD 03/20/20 17 04/10/2017 Inactive hydrocodone 10 mg-acetaminophen 325 mg tablet RxNorm: 867656 1-2 Tablet(s) QID as needed for pain MUST LAST 30 DAYS 03/14/2017 01/21/2019 Inactive (Response to an electronic controlled substance refill request - RxReferenceNumber: [id number]) metoprolol tartrate 100 mg tablet RxNorm: 577255 1 Tablet(s) PO BID 02/12/2017 08/20/2017 Inactive hydrocodone 10 mg-acetaminophen 325 mg tablet RxNorm: 950817 1-2 Tablet(s) QID as needed for pain MUST LAST 30 DAYS 02/08/2017 03/09/2017 Inactive (Response to an electronic controlled substance refill request - RxReferenceNumber: [id number]) metoprolol tartrate 100 mg tablet RxNorm: 590490 TAKE O NE TABLET BY MOUTH TWICE A DAY 01/11/2017 02/12/2017 Inactive metoprolol tartrate 100 mg tablet RxNorm: 080187 1 Tablet(s) PO BID 12/18/2016 12/17/2016 Inactive metoprolol tartrate 100 mg tablet RxNorm: 324386 1 Tablet(s) PO BID 12/18/2016 01/10/2017 Inactive furosemide 40 mg tablet RxNorm: 098897 1 Tablet(s) PO Q AM prn edema--take with potassium 12/13/2016 02/10/2017 Inactive amitriptyline 100 mg tablet RxNorm: 753553 1 Tablet(s) PO QHS 11/2812/12/2016 Inactive baclofen 20 mg tablet RxNorm: 946259 1 Tablet(s) PO TID as needed for muscle spasm 11/14/2016 04/01/2017 Inactive triamterene 75 mg-hydrochlorothiazide 50 mg tablet RxNorm: 3 84202 1 Tablet(s) PO QD 11/14/2016 11/13/2016 Inactive metolazone 2.5 mg tablet RxNorm: 296518 TAKE ONE TABLET BY MOUTH DAILY NEEDED FOR EDEMA 11/14/2016 12/12/2016 Inactive triamterene 75 mg-hydrochlorothiazide 50 mg tablet RxNorm: 3 54061 1 Tablet(s) PO QD 11/14/2016 07/18/2017 Inactive amitriptyline 50 mg tablet RxNorm: 247208 TAKE ONE TABL ET BY MOUTH AT BEDTIME NEEDED FOR SLEEP 11/14/2016 11/27/2016 Inactive Cymbalta 60 mg capsule,delayed release RxNorm: 906108 1 Capsule (s) PO QHS 11/14/2016 12/12/2016 Inactive clonidine HCl 0.1 mg tablet RxNorm: 547839 1 Tablet(s) PO QID 11/1304/04/2017 Inactive amitriptyline 50 mg tablet RxNorm: 787248 1 Tablet(s) P O QHS as needed for sleep 11/01/2016 11/27/2016 Inactive duloxetine 60 mg capsule,delayed release RxNorm: 272503 TAKE ONE CAPSULE BY MOUTH DAILY 10/20/2016 01/17/2017 Inactive allopurinol 300 mg tablet RxNorm: 336913 TAKE ONE TABLET BY LOPEZ TH DAILY 10/20/2016 01/16/2017 Inactive Lyrica 75 mg capsule RxNorm: 768071 TAKE ONE CAPSULE BY MOUTH EVERY NIGHT AT BEDTIME 10/20/2016 12/10/2016 Inactive Klor-Con 8 mEq tablet,extended release RxNorm: 326739 T FARRUKH ONE TABLET BY MOUTH TWICE A DAY 10/20/2016 01/17/2017 Inactive Celebrex 200 mg capsule RxNorm: 588505 TAKE ONE CAPSULE BY MOUT H TWICE A DAY 10/20/2016 07/18/2017 Inactive Bystolic 10 mg tablet RxNorm: 345316 TAKE ONE TABLET BY MOUTH EVERY NIGHT AT BEDTIME 10/20/2016 12/17/2016 Inactive amlodipine 5 mg-benazepril 20 mg capsule RxNorm: 437275 TAKE ONE CAPSULE BY MOUTH EVERY NIGHT AT BEDTIME -- TO REPLACE AMLODOPINE 10/20/20162016 Inactive Lipitor 10 mg tablet RxNorm: 427205 TAKE ONE TABLET BY MOUTH EVERY NIGHT AT BEDTIME 10/20/2016 01/17/2017 Inactive alprazolam 0.5 mg tablet RxNorm: 581739 3 Tablet(s) PO QHS as needed for sleep/anxiety 09/20/2016 10/31/2016 Inactive Tamiflu 75 mg capsule RxNorm: 780607 1 Capsule(s) PO QD 09/19/2016 Inactive Lyrica 75 mg capsule RxNorm: 647349 1 Capsule(s) PO QHS 09/19/2016 Inactive prednisone 20 mg tablet RxNorm: 851994 1 Tablet(s) PO QD 08/10/2016 1 10/17/2015 Inactive doxycycline hyclate 100 mg capsule RxNorm: 6287815 1 Capsule(s) PO BID 08/10/2016 08/19/2016 Inactive Medrol (Dustin) 4 mg tablets in a dose pack RxNorm: 228858 Tablet(s) PO As Directed 07/31/2016 08/22/2016 Inactive Singulair 10 mg tablet RxNorm: 596930 TAKE ONE TABLET BY MOUTH JOSÉ Y 07/27/2016 07/18/2017 Inactive hydrocodone 10 mg-acetaminophen 325 mg tablet RxNorm: 040928 1-2 Tablet(s) QID as needed for pain MUST LAST 30 DAYS 07/26/2016 08/24/2016 Inactive (Response to an electronic controlled substance refill request - RxReferenceNumber: [id number]) alprazolam 0.5 mg tablet RxNorm: 093127 3 Tablet(s) PO QHS as needed for anxiety or sleep 07/26/2016 09/20/2016 Inactive clindamycin 300 mg capsule RxNorm: 598245 1 Capsule(s) PO TID 07/2007/29/2016 Inactive Diflucan 100 mg tablet RxNorm: 890803 1 Tablet(s) PO QD 07/20/2016 Inactive Levaquin 500 mg tablet RxNorm: 797152 1 Tablet(s) PO QD 07/17/2016 Inactive Levaquin 500 mg tablet RxNorm: 795712 1 Tablet(s) PO QD 07/10/2016 Inactive Levaquin 500 mg tablet RxNorm: 228087 1 Tablet(s) PO QD 07/10/2016 Inactive mupirocin 2 % topical ointment RxNorm: 313527 TOP Apply topically to affected areas twice daily 07/06/2016 09/18/2016 Inactive Singulair 10 mg tablet RxNorm: 324114 TAKE ONE TABLET BY MOUTH JOSÉ Y 06/21/2016 01/21/2019 Inactive alprazolam 0.5 mg tablet RxNorm: 135019 TAKE THREE TABL ETS BY MOUTH AT BEDTIME NEEDED FOR SLEEP OR STRESS 05/22/2016 06/20/2016 Inactive triamterene 75 mg-hydrochlorothiazide 50 mg tablet RxNorm: 3 58625 1 Tablet(s) PO QD 04/26/2016 01/12/2020 Inactive Premarin 1.25 mg tablet RxNorm: 907783 1-2 Tablet(s) PO QD 04/26/20 16 03/20/2017 Inactive Klor-Con 8 mEq tablet,extended release RxNorm: 567899 1 Tablet( s) PO BID 04/26/2016 10/19/2016 Inactive Celebrex 200 mg capsule RxNorm: 338132 1 Capsule(s) PO BID TAKE ONE CAPSULE BY MOUTH EVERY DAY 04/26/2016 10/19/2016 Inactive Lipitor 10 mg tablet RxNorm: 838022 1 Tablet(s) PO QHS 04/26/201605/2017 Inactive allopurinol 300 mg tablet RxNorm: 730428 1 Tablet(s) PO QD TAKE ONE TABLET BY MOUTH EVERY DAY 04/26/2016 10/19/2016 Inactive amlodipine 5 mg-benazepril 20 mg capsule RxNorm: 128782 1 Capsule(s) PO QHS replaces amlodopine 04/26/2016 10/19/2016 Inactive duloxetine 60 mg capsule,delayed release RxNorm: 824769 1 Capsu le(s) PO QD 04/26/2016 10/19/2016 Inactive Bystolic 10 mg tablet RxNorm: 439973 1 Tablet(s) PO QHS 04/26/2016 Inactive Singulair 10 mg tablet RxNorm: 237821 1 Tablet(s) PO QD TAKE ONE TABLET BY MOUTH DAILY 04/26/2016 06/20/2016 Inactive clonidine HCl 0.1 mg tablet RxNorm: 143951 1 Tablet(s) PO QID 04/2610/22/2016 Inactive hydrocodone 10 mg-acetaminophen 325 mg tablet RxNorm: 176860 1-2 Tablet(s) QID as needed for pain TAKE ONE TO TWO TABLETS BY MOUTH FOUR TIMES A DAY . MUST LAST 30 DAYS 03/31/2016 04/29/2016 Inactive (Response to an electronic controlled substance refill request - RxReferenceNumber: [id number]) Klor-Con 8 mEq tablet,extended release RxNorm: 054450 T FARRUKH ONE TABLET BY MOUTH TWICE A DAY 03/24/2016 09/29/2019 Inactive prednisone 20 mg tablet RxNorm: 123928 1 Tablet(s) PO QD 03/09/2016 0 03/08/2016 Inactive prednisone 20 mg tablet RxNorm: 242232 1 Tablet(s) PO QD 03/09/2016 0 03/13/2016 Inactive alprazolam 0.5 mg tablet RxNorm: 841167 3 Tablet(s) PO QHS as needed for sleep/stress 03/02/2016 01/21/2019 Inactive mupirocin 2 % topical ointment RxNorm: 403690 TOP twice daily to affected areas of face and neck 02/21/2016 04/25/2016 Inactive clonidine HCl 0.1 mg tablet RxNorm: 465464 TAKE ONE TAB LET BY MOUTH FOUR TIMES A DAY 02/15/2016 09/29/2019 Inactive clonidine HCl 0.1 mg tablet RxNorm: 284600 1 Tablet(s) PO QID 02/1404/25/2016 Inactive Premarin 1.25 mg tablet RxNorm: 980215 1-2 Tablet(s) PO QD 02/15/20 16 03/15/2016 Inactive Klor-Con 8 mEq tablet,extended release RxNorm: 031354 T FARRUKH ONE TABLET BY MOUTH TWICE A DAY 02/15/2016 03/15/2016 Inactive potassium chloride ER 20 mEq tablet,extended release(part/cr yst) RxNorm: 313893 2 Tablet(s) PO BID 02/15/2016 03/15/2016 Inactive Macrobid 100 mg capsule RxNorm: 969870 1 Capsule(s) PO BID 01/24/20 16 01/30/2016 Inactive prednisone 20 mg tablet RxNorm: 730167 Take 3tabs PO QD x 2 days, then 2 tabs PO QD x 2 days, then 1 tab PO QD x 2 days, then 1/2 tab PO QDy x 2 days 12/23/2015 04/25/2016 Inactive Klor-Con 8 mEq tablet,extended release RxNorm: 092787 T FARRUKH ONE TABLET BY MOUTH TWICE A DAY 12/20/2015 02/14/2016 Inactive alprazolam 1 mg tablet RxNorm: 697514 1 1/2 Tablet(s) PO QHS 201501/23/2016 Inactive nystatin 100,000 unit/gram topical cream RxNorm: 550431 APPLY TO AFFECTED AREA(S) TWO TIMES A DAY 11/30/2015 12/14/2015 Inactive Singulair 10 mg tablet RxNorm: 835519 TAKE ONE TABLET BY MOUTH JOSÉ Y 11/18/2015 04/25/2016 Inactive allopurinol 300 mg tablet RxNorm: 082912 1 Tablet(s) PO QD TAKE ONE TABLET BY MOUTH EVERY DAY 10/26/2015 04/22/2016 Inactive Singulair 10 mg tablet RxNorm: 457004 TAKE ONE TABLET BY MOUTH JOSÉ Y 10/26/2015 11/17/2015 Inactive duloxetine 60 mg capsule,delayed release RxNorm: 626585 1 Capsu le(s) PO QD 10/26/2015 04/22/2016 Inactive triamterene 75 mg-hydrochlorothiazide 50 mg tablet RxNorm: 3 81237 1 Tablet(s) PO QD 10/26/2015 11/14/2016 Inactive potassium chloride ER 20 mEq tablet,extended release(part/cr yst) RxNorm: 584798 2 Tablet(s) PO BID 10/26/2015 02/14/2016 Inactive Lipitor 10 mg tablet RxNorm: 426420 1 Tablet(s) PO QHS 10/26/2015 Inactive amlodipine 5 mg-benazepril 20 mg capsule RxNorm: 519882 1 Capsule(s) PO QHS replaces amlodopine 10/26/2015 04/22/2016 Inactive Bystolic 10 mg tablet RxNorm: 661439 1 Tablet(s) PO QHS 10/26/2015 Inactive amlodipine 5 mg-benazepril 20 mg capsule RxNorm: 481847 1 Capsule(s) PO QHS replaces amlodopine 10/06/2015 10/25/2015 Inactive amlodipine 5 mg tablet RxNorm: 082282 1 Tablet(s) PO QHS 09/30/2015 0 04/25/2016 Inactive metolazone 2.5 mg tablet RxNorm: 464358 TAKE ONE TABLET BY MOUTH DAILY NEEDED FOR EDEMA 09/30/2015 01/21/2019 Inactive duloxetine 60 mg capsule,delayed release RxNorm: 504997 1 Capsu le(s) PO QD 09/30/2015 10/25/2015 Inactive cephalexin 500 mg capsule RxNorm: 503611 1 Capsule(s) PO BID 201509/23/2015 Inactive mupirocin 2 % topical ointment RxNorm: 681924 TOP twice daily to affected areas of face and neck 09/14/2015 02/20/2016 Inactive baclofen 20 mg tablet RxNorm: 285120 1 Tablet(s) PO TID as needed for muscle spasm 09/01/2015 11/14/2016 Inactive clonidine HCl 0.1 mg tablet RxNorm: 489444 1 Tablet(s) PO QID 09/0102/14/2016 Inactive alprazolam 1 mg tablet RxNorm: 674365 1 1/2 Tablet(s) PO QHS 201409/09/2015 Inactive baclofen 20 mg tablet RxNorm: 920890 1 Tablet(s) PO TID as needed for muscle spasm 07/23/2015 09/01/2015 Inactive omeprazole 40 mg capsule,delayed release RxNorm: 458145 1 Capsu le(s) PO QD 07/23/2015 04/25/2016 Inactive alprazolam 1 mg tablet RxNorm: 346000 1 1/2 Tablet(s) PO QHS 201408/10/2015 Inactive Bystolic 10 mg tablet RxNorm: 909079 1 Tablet(s) PO BID 06/24/2015 Inactive allopurinol 300 mg tablet RxNorm: 071971 1 Tablet(s) PO QD TAKE ONE TABLET BY MOUTH EVERY DAY 06/23/2015 10/20/2015 Inactive alprazolam 1 mg tablet RxNorm: 746848 1 1/2 Tablet(s) PO QHS 201407/06/2015 Inactive clonidine HCl 0.1 mg tablet RxNorm: 589801 1 Tablet(s) PO QID 06/0209/01/2015 Inactive clonidine HCl 0.1 mg tablet RxNorm: 359059 1 Tablet(s) PO QID 06/0206/01/2015 Inactive Cymbalta 60 mg capsule,delayed release RxNorm: 520339 1 Capsule (s) PO QHS 06/02/2015 08/30/2015 Inactive Cymbalta 60 mg capsule,delayed release RxNorm: 960152 1 Capsule (s) PO QHS 06/02/2015 06/01/2015 Inactive clonidine HCl 0.1 mg tablet RxNorm: 261049 1 Tablet(s) PO TID 05/3106/01/2015 Inactive replaces 0.2mg dose metolazone 2.5 mg tablet RxNorm: 389681 TAKE ONE TABLET BY MOUTH DAILY NEEDED FOR EDEMA 05/21/2015 06/19/2015 Inactive Singulair 10 mg tablet RxNorm: 453644 TAKE ONE TABLET BY MOUTH JOSÉ Y 05/21/2015 10/17/2015 Inactive Cymbalta 30 mg capsule,delayed release RxNorm: 216947 1 Capsule (s) PO QHS 05/20/2015 11/14/2016 Inactive betamethasone valerate 0.1 % topical cream RxNorm: 286543 Appli cation TOP BID 05/10/2015 04/25/2016 Inactive Bactroban 2 % topical ointment RxNorm: 328040 Application TOP BID 0 05/10/2015 06/20/2015 Inactive baclofen 20 mg tablet RxNorm: 796968 1 Tablet(s) PO TID as needed 0 04/26/2015 07/23/2015 Inactive Lipitor 10 mg tablet RxNorm: 197630 1 Tablet(s) PO QHS 04/26/201508/2016 Inactive clonidine HCl 0.1 mg tablet RxNorm: 350125 1 Tablet(s) PO TID 04/2605/30/2015 Inactive replaces 0.2mg dose Klor-Con 8 mEq tablet,extended release RxNorm: 773798 1 Tablet( s) PO BID 04/26/2015 04/25/2016 Inactive metolazone 2.5 mg tablet RxNorm: 501132 1 Tablet(s) PO QD as ne eded for edema 04/26/2015 04/25/2015 Inactive triamterene 75 mg-hydrochlorothiazide 50 mg tablet RxNorm: 3 21083 1 Tablet(s) PO QD 04/26/2015 10/22/2015 Inactive Premarin 1.25 mg tablet RxNorm: 094625 1-2 Tablet(s) PO QD 04/26/20 15 10/22/2015 Inactive Bystolic 10 mg tablet RxNorm: 702607 1 Tablet(s) PO QAM TAKE ONE TABLET BY MOUTH EVERY MORNING 04/23/2015 06/23/2015 Inactive clonidine HCl 0.1 mg tablet RxNorm: 850691 1 Tablet(s) PO TID 03/2304/25/2015 Inactive replaces 0.2mg dose nystatin 100,000 unit/gram topical cream RxNorm: 917111 Applica tion TOP BID 03/23/2015 06/20/2015 Inactive baclofen 20 mg tablet RxNorm: 802036 1 Tablet(s) PO TID as needed 0 03/23/2015 04/25/2015 Inactive Premarin 1.25 mg tablet RxNorm: 073907 1-2 Tablet(s) PO QD 03/23/20 15 04/25/2015 Inactive Klor-Con 8 mEq tablet,extended release RxNorm: 333933 1 Tablet( s) PO BID 03/23/2015 04/25/2015 Inactive cefdinir 300 mg capsule RxNorm: 837734 2 Capsule(s) PO QD 03/16/2015 03/25/2015 Inactive baclofen 20 mg tablet RxNorm: 060910 1 Tablet(s) PO TID as needed 0 03/02/2015 03/22/2015 Inactive allopurinol 300 mg tablet RxNorm: 444117 1 Tablet(s) PO QD TAKE ONE TABLET BY MOUTH EVERY DAY 02/22/2015 05/22/2015 Inactive Klor-Con M20 mEq tablet,extended release RxNorm: 966572 2 Tablet(s) PO BID to use with lasix 02/22/2015 06/20/2015 Inactive clonidine HCl 0.1 mg tablet RxNorm: 866883 1 Tablet(s) PO TID 02/1903/22/2015 Inactive replaces 0.2mg dose Lipitor 10 mg tablet RxNorm: 887037 1 Tablet(s) PO QHS 01/20/201506/2015 Inactive Lipitor 10 mg tablet RxNorm: 427139 1 Tablet(s) PO QHS 01/20/2015 Inactive Singulair 10 mg tablet RxNorm: 722219 1 Tablet(s) PO QD TAKE ONE TABLET BY MOUTH EVERY DAY 11/20/2014 05/18/2015 Inactive Lipitor 10 mg tablet RxNorm: 134457 1 Tablet(s) PO QHS 11/20/201408/2015 Inactive allopurinol 300 mg tablet RxNorm: 589239 1 Tablet(s) PO QD TAKE ONE TABLET BY MOUTH EVERY DAY 11/20/2014 02/16/2015 Inactive Bystolic 10 mg tablet RxNorm: 620157 1 Tablet(s) PO QAM TAKE ONE TABLET BY MOUTH EVERY MORNING 11/20/2014 04/22/2015 Inactive Klor-Con 8 mEq tablet,extended release RxNorm: 626943 1 Tablet( s) PO BID 11/20/2014 02/17/2015 Inactive baclofen 20 mg tablet RxNorm: 804604 1 Tablet(s) PO TID as needed 0 11/20/2014 01/21/2019 Inactive baclofen 20 mg tablet RxNorm: 639182 1 Tablet(s) PO TID as needed 0 10/27/2014 11/19/2014 Inactive baclofen 20 mg tablet RxNorm: 941532 1 Tablet(s) PO TID as needed 0 10/26/2014 03/01/2015 Inactive allopurinol 300 mg tablet RxNorm: 461656 1 Tablet(s) PO QD TAKE ONE TABLET BY MOUTH EVERY DAY 10/26/2014 11/20/2014 Inactive Bystolic 10 mg tablet RxNorm: 054283 1 Tablet(s) PO QAM TAKE ONE TABLET BY MOUTH EVERY MORNING 10/26/2014 11/20/2014 Inactive clonidine HCl 0.1 mg tablet RxNorm: 673820 1 Tablet(s) PO TID 09/2805/27/2019 Inactive replaces 0.2mg dose clonidine HCl 0.1 mg tablet RxNorm: 235498 1 Tablet(s) PO TID 09/2802/18/2015 Inactive replaces 0.2mg dose baclofen 20 mg tablet RxNorm: 926263 1 Tablet(s) PO TID as needed 1 11/01/2013 08/30/2014 Inactive Lipitor 10 mg tablet RxNorm: 381498 1 Tablet(s) PO QHS 08/31/2014 Inactive baclofen 20 mg tablet RxNorm: 337152 1 Tablet(s) PO TID as needed 1 11/01/2013 10/26/2014 Inactive triamterene 75 mg-hydrochlorothiazide 50 mg tablet RxNorm: 3 02952 1 Tablet(s) PO QD 08/31/2014 02/26/2015 Inactive Klor-Con 8 mEq tablet,extended release RxNorm: 869264 1 Tablet( s) PO BID 08/31/2014 11/20/2014 Inactive baclofen 20 mg tablet RxNorm: 632923 1 Tablet(s) PO TID as needed 1 09/30/2013 10/25/2014 Inactive baclofen 20 mg tablet RxNorm: 312340 1 Tablet(s) PO TID as needed 1 09/30/2013 08/31/2014 Inactive omeprazole 40 mg capsule,delayed release RxNorm: 077859 1 Capsu le(s) PO QD 07/21/2014 07/23/2015 Inactive Flonase 50 mcg/actuation nasal spray,suspension RxNorm: 8963 23 1 Hope NASAL BID 07/15/2014 04/09/2017 Inactive hydrocodone 10 mg-acetaminophen 325 mg tablet RxNorm: 962431 1-2 Tablet(s) QID as needed for pain TAKE ONE TO TWO TABLETS BY MOUTH FOUR TIMES A DAY . MUST LAST 30 DAYS 06/30/2014 07/27/2014 Inactive (Response to an electronic controlled substance refill request - RxReferenceNumber: [id number]) baclofen 20 mg tablet RxNorm: 961848 1 Tablet(s) PO TID as needed 1 07/31/2014 Inactive Singulair 10 mg tablet RxNorm: 629624 1 Tablet(s) PO QD TAKE ONE TABLET BY MOUTH EVERY DAY 05/25/2014 11/20/2014 Inactive Bystolic 10 mg tablet RxNorm: 825369 TAKE ONE TABLET BY MOUTH E VERY MORNING 05/25/2014 09/21/2014 Inactive allopurinol 300 mg tablet RxNorm: 703299 1 Tablet(s) PO QD TAKE ONE TABLET BY MOUTH EVERY DAY 05/25/2014 10/21/2014 Inactive baclofen 20 mg tablet RxNorm: 371880 1 Tablet(s) PO TID as needed 0 05/25/2014 06/29/2014 Inactive allopurinol 300 mg tablet RxNorm: 360112 TAKE ONE TABLET BY LOPEZ TH EVERY DAY 05/25/2014 09/21/2014 Inactive Singulair 10 mg tablet RxNorm: 580710 1 Tablet(s) PO QD TAKE ONE TABLET BY MOUTH EVERY DAY 05/25/2014 05/24/2014 Inactive Bystolic 10 mg tablet RxNorm: 211895 1 Tablet(s) PO QAM TAKE ONE TABLET BY MOUTH EVERY MORNING 05/25/2014 10/21/2014 Inactive metolazone 2.5 mg tablet RxNorm: 403894 1 Tablet(s) PO QD as ne eded for edema 05/18/2014 04/25/2015 Inactive Lasix 40 mg tablet RxNorm: 604447 1 Tablet(s) PO QAM s hould take potassium supplementation with this medication 05/14/2014 05/17/2014 Inactive hydrocodone 10 mg-acetaminophen 325 mg tablet RxNorm: 679273 1-2 Tablet(s) QID as needed for pain TAKE ONE TO TWO TABLETS BY MOUTH FOUR TIMES A DAY . MUST LAST 30 DAYS 05/07/2014 06/05/2014 Inactive (Response to an electronic controlled substance refill request - RxReferenceNumber: [id number]) alprazolam 0.5 mg tablet RxNorm: 811148 TAKE ONE TABLET BY MOUTH TWICE A DAY , MUST LAST 30 DAYS 05/07/2014 05/22/2016 Inactive (Response to a n electronic controlled substance refill request - RxReferenceNumber: [id number]) diclofenac sodium 75 mg tablet,delayed release RxNorm: 87524 6 1 Tablet(s) PO BID for pain 04/24/2014 07/20/2014 Inactive Celebrex 200 mg capsule RxNorm: 397641 TAKE ONE CAPSULE BY MOUT H EVERY DAY 04/24/2014 07/20/2014 Inactive alprazolam 0.5 mg tablet RxNorm: 018119 TAKE ONE TABLET BY MOUTH TWICE A DAY , MUST LAST 30 DAYS 03/24/2014 04/22/2014 Inactive (Response to a n electronic controlled substance refill request - RxReferenceNumber: [id number]) diclofenac sodium 75 mg tablet,delayed release RxNorm: 73290 6 1 Tablet(s) PO BID for pain 03/24/2014 04/24/2014 Inactive clonidine HCl 0.1 mg tablet RxNorm: 536416 1 Tablet(s) PO TID 03/2409/28/2014 Inactive replaces 0.2mg dose Klor-Con 8 mEq tablet,extended release RxNorm: 367524 1 Tablet( s) PO BID 02/26/2014 08/31/2014 Inactive diclofenac sodium 75 mg tablet,delayed release RxNorm: 18222 6 1 Tablet(s) PO BID for pain 02/25/2014 03/24/2014 Inactive hydrocodone 10 mg-acetaminophen 325 mg tablet RxNorm: 828251 1-2 Tablet(s) QID as needed for pain TAKE ONE TO TWO TABLETS BY MOUTH FOUR TIMES A DAY . MUST LAST 30 DAYS 02/25/2014 03/26/2014 Inactive (Response to an electronic controlled substance refill request - RxReferenceNumber: [id number]) alprazolam 0.5 mg tablet RxNorm: 685205 Tablet(s) PO BI D as needed for anxiety TAKE ONE TABLET BY MOUTH TWICE A DAY , MUST LAST 30 DAYS 02/25/2014 Inactive (Response to an electronic controlled [place] bstance refill request - RxReferenceNumber: [id number]) [AttnRPh: Saving apply/adjudicate RxGRP:SG20 RxBIN:[id number] RxPCN: ID#:[id number]] alprazolam 0.5 mg tablet RxNorm: 641916 Tablet(s) TAKE ONE TABLET BY MOUTH TWICE A DAY , MUST LAST 30 DAYS 01/27/2014 02/24/2014 Inactive (Respo nse to an electronic controlled substance refill request - RxReferenceNumber: [id number]) [AttnRPh: Saving apply/adjudicate RxGRP:SG20 RxBIN:[id number] RxPCN: ID#:[id number]] hydrocodone 10 mg-acetaminophen 325 mg tablet RxNorm: 208597 1-2 Tablet(s) QID as needed for pain TAKE ONE TO TWO TABLETS BY MOUTH FOUR TIMES A DAY . MUST LAST 30 DAYS 01/27/2014 02/24/2014 Inactive (Response to an electronic controlled substance refill request - RxReferenceNumber: [id number]) alprazolam 0.5 mg tablet RxNorm: 505554 TAKE ONE TABLET BY MOUTH TWICE A DAY , MUST LAST 30 DAYS 01/27/2014 01/26/2014 Inactive (Response to a n electronic controlled substance refill request - RxReferenceNumber: [id number]) Premarin 1.25 mg tablet RxNorm: 975126 1-2 Tablet(s) PO QD 01/28/20 14 07/25/2014 Inactive alprazolam 0.5 mg tablet RxNorm: 022805 TAKE ONE TABLET BY MOUTH TWICE A DAY , MUST LAST 30 DAYS 01/27/2014 01/27/2014 Inactive (Response to a n electronic controlled substance refill request - RxReferenceNumber: [id number]) hydrocodone 10 mg-acetaminophen 325 mg tablet RxNorm: 672079 TAKE ONE TO TWO TABLETS BY MOUTH FOUR TIMES A DAY . MUST LAST 30 DAYS 01/27/20142013 Inactive (Response to an electronic controlled [place] bstance refill request - RxReferenceNumber: [id number]) Celebrex 200 mg capsule RxNorm: 190324 1 Capsule(s) PO QD TAKE ONE CAPSULE BY MOUTH EVERY DAY 12/29/2013 04/27/2014 Inactive hydrocodone 10 mg-acetaminophen 325 mg tablet RxNorm: 771636 1-2 Tablet(s) PO QID as needed for severe pain 12/29/2013 01/27/2014 Inactive allopurinol 300 mg tablet RxNorm: 846616 1 Tablet(s) PO QD TAKE ONE TABLET BY MOUTH EVERY DAY 12/29/2013 05/24/2014 Inactive alprazolam 0.5 mg tablet RxNorm: 428422 TAKE ONE TABLET BY MOUTH TWICE A DAY , MUST LAST 30 DAYS 12/29/2013 01/27/2014 Inactive (Response to a n electronic controlled substance refill request - RxReferenceNumber: [id number]) Celebrex 200 mg capsule RxNorm: 625616 1 Capsule(s) PO QD TAKE ONE CAPSULE BY MOUTH EVERY DAY 12/29/2013 12/29/2013 Inactive Bystolic 10 mg tablet RxNorm: 412305 1 Tablet(s) PO QAM TAKE ONE TABLET BY MOUTH EVERY MORNING 12/29/2013 05/24/2014 Inactive Bystolic 10 mg tablet RxNorm: 015338 1 Tablet(s) PO QAM TAKE ONE TABLET BY MOUTH EVERY MORNING 12/29/2013 12/29/2013 Inactive Singulair 10 mg tablet RxNorm: 767897 1 Tablet(s) PO QD TAKE ONE TABLET BY MOUTH EVERY DAY 12/29/2013 05/25/2014 Inactive hydrocodone 10 mg-acetaminophen 325 mg tablet RxNorm: 405984 TAKE ONE TO TWO TABLETS BY MOUTH FOUR TIMES A DAY . MUST LAST 30 DAYS 12/29/20132013 Inactive (Response to an electronic controlled cornell bstance refill request - RxReferenceNumber: [id number]) Trazadone 75mg Tablet RxNorm: 1 Tablet(s) PO QHS as needed 03/23/2014 Inactive Trazadone 75mg Tablet RxNorm: 1 Tablet(s) PO QHS 12/24/20132014 Inactive Soma 350 mg tablet RxNorm: 905538 Tablet(s) PO TAKE ON E TABLET BY MOUTH THREE TIMES A DAY NEEDED FOR MUSCLE SPASMS. THIS MUST LAST 30 DAYS BETWEEN REFILLS. 12/10/2013 12/22/2013 Inactive (Appended: Cont rolled substance eRx refill - RxReferenceNumber: [id number]) diclofenac sodium 75 mg tablet,delayed release RxNorm: 76942 6 1 Tablet(s) PO BID for pain 12/10/2013 02/24/2014 Inactive allopurinol 300 mg tablet RxNorm: 071552 1 Tablet(s) PO QD 11/20/19 14 12/29/2013 Inactive alprazolam 0.5 mg tablet RxNorm: 027674 2 Tablet(s) PO BID 11/13/19 14 12/29/2013 Inactive prn clonidine 0.1 mg tablet RxNorm: 968851 1 Tablet(s) PO TID 11/12/2013 02/09/2014 Inactive replaces 0.2mg dose Klor-Con M20 mEq tablet,extended release RxNorm: 807674 2 Tablet(s) PO BID to use with lasix 11/12/2013 05/10/2014 Inactive Singulair 10 mg tablet RxNorm: 988498 1 Tablet(s) PO QD 11/12/2013 Inactive hydrocodone 10 mg-acetaminophen 325 mg tablet RxNorm: 428369 1-2 Tablet(s) PO QID as needed for severe pain 11/12/2013 12/28/2013 Inactive Bystolic 10 mg tablet RxNorm: 389885 1 Tablet(s) PO QAM 11/12/2013 Inactive Soma 350 mg tablet RxNorm: 582111 Tablet(s) PO TAKE ON E TABLET BY MOUTH THREE TIMES A DAY NEEDED FOR MUSCLE SPASMS. THIS MUST LAST 30 DAYS BETWEEN REFILLS. 10/13/2013 12/10/2013 Inactive (Appended: Cont rolled substance eRx refill - RxReferenceNumber: [id number]) hydrocodone 10 mg-acetaminophen 325 mg tablet RxNorm: 012783 1-2 Tablet(s) PO QID as needed for severe pain 10/03/2013 11/11/2013 Inactive diclofenac sodium 75 mg tablet,delayed release RxNorm: 01243 8 1 Tablet(s) PO BID for pain 09/11/2013 12/10/2013 Inactive alprazolam 0.5 mg tablet RxNorm: 857185 1 Tablet(s) PO BID May refill on 04/26/13 09/01/2013 10/30/2013 Inactive prn hydrocodone 10 mg-acetaminophen 325 mg tablet RxNorm: 152987 1-2 Tablet(s) PO QID as needed for severe pain 09/01/2013 10/02/2013 Inactive triamterene 75 mg-hydrochlorothiazide 50 mg tablet RxNorm: 3 56018 1 Tablet(s) PO QD 08/04/2013 08/31/2014 Inactive cyclobenzaprine 10 mg tablet RxNorm: 528698 1 Tablet(s) PO TID prn spasm 08/04/2013 08/13/2013 Inactive clonidine 0.1 mg tablet RxNorm: 293788 1 Tablet(s) PO TID 08/04/2013 11/11/2013 Inactive replaces 0.2mg dose cyclobenzaprine 10 mg tablet RxNorm: 269380 1 Tablet(s) PO TID prn spasm 07/23/2013 08/01/2013 Inactive hydrocodone 10 mg-acetaminophen 325 mg tablet RxNorm: 319410 2 1-2 Tablet(s) PO QID as needed for severe pain 06/09/2013 08/07/2013 Inactive Singulair 10 mg tablet RxNorm: 183498 1 Tablet(s) PO QD 05/29/2013 Inactive Klor-Con 8 mEq tablet,extended release RxNorm: 577253 1 Tablet( s) PO BID 05/29/2013 02/26/2014 Inactive allopurinol 300 mg tablet RxNorm: 179586 1 Tablet(s) PO QD 05/29/2011/19/2013 Inactive Bystolic 10 mg tablet RxNorm: 718048 1 Tablet(s) PO QAM take one daily in the morning. 05/29/2013 11/11/2013 Inactive scopolamine 1.5 mg 72 hr Transderm Patch RxNorm: 433023 Application TD Q72H for motion sickness 05/26/2013 07/22/2013 Inactive Soma 350 mg tablet RxNorm: 309498 1 Tablet(s) PO TID as needed for spasm 05/19/2013 10/13/2013 Inactive diclofenac sodium 75 mg tablet,delayed release RxNorm: 34731 8 1 Tablet(s) PO BID for pain 05/14/2013 07/22/2013 Inactive allopurinol 300 mg tablet RxNorm: 336493 1 Tablet(s) PO QD 04/25/20 13 05/28/2013 Inactive alprazolam 0.5 mg tablet RxNorm: 607084 1 Tablet(s) PO BID May refill on 04/26/13 04/25/2013 06/23/2013 Inactive prn Celebrex 200 mg capsule RxNorm: 785751 1 Capsule(s) PO QD 04/16/2013 12/29/2013 Inactive alprazolam 0.5 mg tablet RxNorm: 670689 1 Tablet(s) PO BID May refill on 04/26/13 04/16/2013 04/24/2013 Inactive prn Soma 350 mg tablet RxNorm: 917322 1 Tablet(s) PO TID as needed for spasm 04/16/2013 No Stop Date Active Lasix 40 mg tablet RxNorm: 380358 1 Tablet(s) PO QAM alan hould take potassium supplementation with this medication 04/16/2013 06/14/2013 Inactive clonidine 0.1 mg tablet RxNorm: 567134 1 Tablet(s) PO TID 04/16/2013 08/03/2013 Inactive replaces 0.2mg dose prednisone 20 mg tablet RxNorm: 863907 1 Tablet(s) PO BID 04/16/2013 04/20/2013 Inactive diclofenac sodium 75 mg tablet,delayed release RxNorm: 28589 8 1 Tablet(s) PO BID for pain 04/14/2013 05/13/2013 Inactive hydrocodone 10 mg-acetaminophen 325 mg tablet RxNorm: 653444 2 1-2 Tablet(s) PO QID as needed for severe pain 04/14/2013 No Stop Date Active Lasix 40 mg tablet RxNorm: 781725 1 Tablet(s) PO QAM s hould take potassium supplementation with this medication 03/31/2013 04/15/2013 Inactive Celebrex 200 mg capsule RxNorm: 039035 1 Capsule(s) PO QD 03/31/2013 04/15/2013 Inactive alprazolam 0.5 mg tablet RxNorm: 257728 1 Tablet(s) PO BID 03/28/20 13 04/15/2013 Inactive prn hydrocodone 10 mg-acetaminophen 325 mg tablet RxNorm: 648109 2 1-2 Tablet(s) PO QID as needed for severe pain 03/10/2013 No Stop Date Active metformin ER 500 mg 24 hr tablet,extended release RxNorm: 86 1018 1 Tablet(s) PO QD 03/06/2013 07/22/2013 Inactive clindamycin 300 mg capsule RxNorm: 244921 2 Capsule(s) PO TID 03/0503/14/2013 Inactive Zaroxolyn 2.5 mg tablet RxNorm: 722113 1 Tablet(s) PO QAM 03/05/2013 05/19/2015 Inactive amlodipine 10 mg tablet RxNorm: 470081 1 Tablet(s) PO QD 03/03/2013 0 05/25/2013 Inactive Norvasc 10 mg tablet RxNorm: 524294 1 Tablet(s) PO QD 02/28/201307/11 Inactive Celebrex 200 mg capsule RxNorm: 624021 1 Capsule(s) PO QD 02/28/2013 03/30/2013 Inactive diclofenac sodium 75 mg tablet,delayed release RxNorm: 86174 8 1 Tablet(s) PO BID for pain 02/14/2013 03/15/2013 Inactive Soma 350 mg tablet RxNorm: 302857 1 Tablet(s) PO TID as needed for spasm 02/14/2013 No Stop Date Active hydrocodone 10 mg-acetaminophen 325 mg tablet RxNorm: 900085 2 1-2 Tablet(s) PO QID as needed for severe pain 02/14/2013 No Stop Date Active Norvasc 10 mg tablet RxNorm: 639013 1 Tablet(s) PO QD 02/10/201302/09 Inactive Celebrex 200 mg capsule RxNorm: 708479 1 Capsule(s) PO QD 01/27/2013 01/26/2013 Inactive Premarin 1.25 mg tablet RxNorm: 912424 1-2 Tablet(s) PO QD 01/28/20 13 06/25/2013 Inactive alprazolam 0.5 mg tablet RxNorm: 011468 1 Tablet(s) PO BID 01/28/20 13 02/25/2013 Inactive prn amlodipine 5 mg tablet RxNorm: 581110 1 Tablet(s) PO QD 01/27/2013 Inactive Celebrex 200 mg capsule RxNorm: 823218 1 Capsule(s) PO QD 01/27/2013 02/27/2013 Inactive gabapentin 600 mg tablet RxNorm: 641820 1 Tablet(s) PO QHS 01/16/20 13 07/22/2013 Inactive Soma 350 mg tablet RxNorm: 831628 1 Tablet(s) PO TID as needed for spasm 01/15/2013 No Stop Date Active hydrocodone 10 mg-acetaminophen 325 mg tablet RxNorm: 553208 2 1-2 Tablet(s) PO QID as needed for severe pain 01/15/2013 No Stop Date Active Soma 350 mg tablet RxNorm: 261679 1 Tablet(s) PO TID as needed for spasm 01/13/2013 No Stop Date Active alprazolam 0.5 mg tablet RxNorm: 667718 1 Tablet(s) PO BID 12/31/19 13 01/26/2013 Inactive prn diclofenac sodium 75 mg tablet,delayed release RxNorm: 04213 8 1 Tablet(s) PO BID for pain 12/09/2012 01/07/2013 Inactive gabapentin 600 mg tablet RxNorm: 802931 1 Tablet(s) PO QHS 12/10/19 13 01/07/2013 Inactive hydrocodone 10 mg-acetaminophen 325 mg tablet RxNorm: 915381 2 1-2 Tablet(s) PO QID as needed for severe pain 12/02/2012 No Stop Date Active Levaquin 750 mg tablet RxNorm: 517511 1 Tablet(s) PO QD 11/21/2012 Inactive Singulair 10 mg tablet RxNorm: 953764 1 Tablet(s) PO QD 11/11/2012 Inactive clonidine 0.2 mg tablet RxNorm: 338961 1 Tablet(s) PO TID 11/11/2012 04/15/2013 Inactive alprazolam 0.5 mg tablet RxNorm: 535760 1 Tablet(s) PO BID 11/12/19 13 12/10/2012 Inactive prn Klor-Con 8 mEq tablet,extended release RxNorm: 350343 1 Tablet( s) PO BID 11/11/2012 03/04/2013 Inactive hydrocodone 10 mg-acetaminophen 325 mg tablet RxNorm: 745214 2 1-2 Tablet(s) PO QID as needed for severe pain 11/06/2012 No Stop Date Active alprazolam 0.5 mg tablet RxNorm: 212652 1 Tablet(s) PO BID 10/15/19 13 11/10/2012 Inactive prn hydrocodone-acetaminophen 10 mg-325 mg tablet RxNorm: 255794 2 1-2 Tablet(s) PO QID as needed for severe pain 10/10/2012 10/09/2012 Inactive allopurinol 300 mg tablet RxNorm: 351647 1 Tablet(s) PO QD 09/20/19 13 12/18/2012 Inactive alprazolam 0.5 mg tablet RxNorm: 269024 1 Tablet(s) PO BID 09/17/19 13 10/14/2012 Inactive prn hydrocodone-acetaminophen 10 mg-325 mg tablet RxNorm: 155547 2 1-2 Tablet(s) PO QID as needed for severe pain 08/22/2012 08/21/2012 Inactive Norvasc 10 mg tablet RxNorm: 585029 1 Tablet(s) PO QD 08/12/201201/10 Inactive Premarin 1.25 mg tablet RxNorm: 372513 1-2 Tablet(s) PO QD 07/30/20 12 12/26/2012 Inactive alprazolam 0.5 mg tablet RxNorm: 979700 1 Tablet(s) PO BID 07/29/20 12 08/27/2012 Inactive prn Klor-Con 8 mEq tablet,extended release RxNorm: 158383 1 Tablet( s) PO BID 07/29/2012 11/10/2012 Inactive hydrocodone-acetaminophen 10 mg-325 mg tablet RxNorm: 123917 2 1-2 Tablet(s) PO QID as needed for severe pain 07/29/2012 No Stop Date Active Premarin 1.25 mg tablet RxNorm: 873256 1-2 Tablet(s) PO QD 07/29/20 12 07/29/2012 Inactive clonidine 0.2 mg tablet RxNorm: 340607 1 Tablet(s) PO TID 07/29/2012 10/28/2012 Inactive ketorolac 10 mg tablet RxNorm: 603909 1 Tablet(s) PO QID prn he adache 07/18/2012 No Stop Date Active hydrocodone-acetaminophen 10 mg-325 mg tablet RxNorm: 809459 2 1-2 Tablet(s) PO QID as needed for severe pain 07/03/2012 No Stop Date Active amlodipine 5 mg tablet RxNorm: 189908 1 Tablet(s) PO QD 07/02/2012 Inactive allopurinol 300 mg tablet RxNorm: 501562 1 Tablet(s) PO QD 07/02/20 12 09/19/2012 Inactive Celebrex 200 mg capsule RxNorm: 075105 1 Capsule(s) PO QD for j oint pain 06/26/2012 10/23/2012 Inactive diclofenac sodium 75 mg tablet,delayed release RxNorm: 02738 8 1 Tablet(s) PO BID for pain 06/19/2012 09/16/2012 Inactive hydrocodone-acetaminophen 10 mg-325 mg tablet RxNorm: 301637 2 1-2 Tablet(s) PO QID as needed for severe pain 06/10/2012 No Stop Date Active alprazolam 0.5 mg tablet RxNorm: 676258 1 Tablet(s) PO BID 06/03/20 12 07/02/2012 Inactive prn ketorolac 10 mg tablet RxNorm: 692144 1 Tablet(s) PO Q8H 05/27/2012 0 01/21/2019 Inactive as needed for headache hydrocodone-acetaminophen 10 mg-325 mg tablet RxNorm: 795278 2 1-2 Tablet(s) PO QID as needed for severe pain 05/15/2012 No Stop Date Active allopurinol 300 mg tablet RxNorm: 658209 1 Tablet(s) PO QD 05/14/20 12 06/12/2012 Inactive allopurinol 300 mg tablet RxNorm: 246744 1 Tablet(s) PO QD 05/14/20 12 05/13/2012 Inactive amlodipine 5 mg tablet RxNorm: 351160 1 Tablet(s) PO QD 05/01/2012 Inactive amlodipine 5 mg Tab RxNorm: 286252 1 Tablet(s) PO QD 05/01/201204/30 Inactive Celebrex 200 mg capsule RxNorm: 222004 1 Capsule(s) PO QD for j oint pain 05/01/2012 06/25/2012 Inactive Singulair 10 mg tablet RxNorm: 981207 1 Tablet(s) PO QD 05/01/2012 Inactive alprazolam 0.5 mg tablet RxNorm: 410912 1 Tablet(s) PO BID 05/01/20 12 05/30/2012 Inactive prn Celebrex 200 mg Cap RxNorm: 279004 1 Capsule(s) PO QD for joint radu n 05/01/2012 04/30/2012 Inactive hydrocodone-acetaminophen 10 mg-325 mg tablet RxNorm: 827816 2 1-2 Tablet(s) PO QID as needed for severe pain 04/19/2012 No Stop Date Active Lasix 40 mg tablet RxNorm: 427882 1 Tablet(s) PO RAZA ramirez take potassium supplementation with this medication 04/05/2012 06/03/2012 Inactive alprazolam 0.5 mg Tab RxNorm: 843174 1 Tablet(s) PO BID 04/05/2012 Inactive prn hydrocodone-acetaminophen 10 mg-325 mg Tab RxNorm: 8721587 1-2 Tablet(s) PO QID as needed for severe pain 03/25/2012 03/24/2012 Inactive clonidine 0.2 mg Tab RxNorm: 566416 1 Tablet(s) PO TID 03/08/2012 Inactive alprazolam 0.5 mg Tab RxNorm: 634942 1 Tablet(s) PO BID 03/08/2012 Inactive prn Soma 350 mg tablet RxNorm: 533042 1 Tablet(s) PO TID for spasm 02/0903/18/2012 Inactive clonidine 0.2 mg tablet RxNorm: 170189 1 Tablet(s) PO TID 03/08/2012 07/28/2012 Inactive Celebrex 200 mg Cap RxNorm: 631784 1 Capsule(s) PO QD for joint radu n 03/01/2012 04/29/2012 Inactive amlodipine 5 mg Tab RxNorm: 621306 1 Tablet(s) PO QD 02/26/201202/24 Inactive amlodipine 5 mg Tab RxNorm: 273812 1 Tablet(s) PO QD 02/26/201204/25 Inactive Bactroban 2 % Ointment RxNorm: 010757 Application TOP QID to sores 02/23/2012 No Stop Date Active amlodipine 2.5 mg tablet RxNorm: 115978 1 Tablet(s) PO QHS 02/20/2002/25/2012 Inactive doxycycline hyclate 100 mg Cap RxNorm: 8639516 1 Capsule(s) PO BID 02/20/2012 02/29/2012 Inactive hydrocodone-acetaminophen 10 mg-325 mg Tab RxNorm: 6360047 1-2 T ablet(s) PO QID 02/08/2012 No Stop Date Active alprazolam 0.5 mg Tab RxNorm: 463074 1 Tablet(s) PO BID 02/08/2012 Inactive prn Singulair 10 mg Tab RxNorm: 430378 1 Tablet(s) PO QD 02/08/201204/30 Inactive Soma 350 mg Tab RxNorm: 371359 1 Tablet(s) PO TID for spasm 012 03/07/2012 Inactive Soma 350 mg Tab RxNorm: 492135 1 Tablet(s) PO TID for spasm 012 02/05/2012 Inactive diclofenac sodium 75 mg tablet,delayed release RxNorm: 29563 8 1 Tablet(s) PO BID for pain 02/01/2012 03/18/2012 Inactive Celebrex 200 mg Cap RxNorm: 045346 1 Capsule(s) PO QD for joint radu n 01/30/2012 02/28/2012 Inactive Lasix 40 mg Tab RxNorm: 981409 1 Tablet(s) PO QAM 01/24/2012 03/18/20 12 Inactive potassium chloride ER 20 mEq tablet,extended release(part/cr yst) RxNorm: 416999 2 Tablet(s) PO BID 01/24/2012 02/22/2012 Inactive alprazolam 0.5 mg Tab RxNorm: 661976 1 Tablet(s) PO BID 01/11/2012 Inactive prn hydrocodone-acetaminophen 10 mg-325 mg Tab RxNorm: 7328042 1-2 T ablet(s) PO QID 01/11/2012 No Stop Date Active Ambien 10 mg Tab RxNorm: 976364 1 Tablet(s) PO QHS 01/11/2012 012 Inactive Klor-Con 8 mEq Tab RxNorm: 597393 1 Tablet(s) PO BID 01/11/201201/22 Inactive diclofenac sodium 75 mg Tab, Delayed Release RxNorm: 873817 1 Tablet(s) PO BID for pain 01/10/2012 01/31/2012 Inactive Ambien 10 mg Tab RxNorm: 854403 1 Tablet(s) PO QHS 12/11/2011 012 Inactive alprazolam 0.5 mg Tab RxNorm: 553608 1 Tablet(s) PO BID 12/11/2011 Inactive prn hydrocodone 10 mg-acetaminophen 325 mg tablet RxNorm: 161049 1-2 Tablet(s) PO TID 11/28/2011 No Stop Date Active as needed for pa in - Previous quantity #240, will start dosing for #180 in April [address] Ignacio. Ambien 10 mg Tab RxNorm: 858275 1 Tablet(s) PO QHS 11/09/2011 012 Inactive alprazolam 0.5 mg Tab RxNorm: 201325 1 Tablet(s) PO BID 11/09/2011 Inactive prn hydrocodone-acetaminophen 10 mg-325 mg Tab RxNorm: 9455371 1-2 T ablet(s) PO TID 11/06/2011 No Stop Date Active as needed for pain - Previous quantity #240, will start dosing for #180 in April 2011 [address] Doctor Ignacio. Singulair 10 mg Tab RxNorm: 375986 1 Tablet(s) PO QD 10/13/201110/12 Inactive Singulair 10 mg Tab RxNorm: 400718 1 Tablet(s) PO QD 10/13/201102/06 Inactive hydrocodone-acetaminophen 10 mg-325 mg Tab RxNorm: 5385433 1-2 T ablet(s) PO TID 10/10/2011 10/09/2011 Inactive as needed for pain - Previous quantity #240, will start dosing for #180 in April [address] Ignacio. hydrocodone-acetaminophen 10 mg-325 mg Tab RxNorm: 3374585 1-2 T ablet(s) PO TID 10/09/2011 No Stop Date Active as needed for pain - Previous quantity #240, will start dosing for #180 in April 2011 [address] Doctor Ignacio. Klor-Con 8 mEq Tab RxNorm: 662502 1 Tablet(s) PO BID 10/02/201101/09 Inactive triamterene 75 mg-hydrochlorothiazide 50 mg tablet RxNorm: 3 97858 1 Tablet(s) PO QD 09/14/2011 03/06/2013 Inactive Ambien 10 mg Tab RxNorm: 701337 1 Tablet(s) PO QHS 09/14/2011 012 Inactive hydrocodone-acetaminophen 10 mg-325 mg Tab RxNorm: 0924450 1-2 T ablet(s) PO TID 09/14/2011 No Stop Date Active as needed for pain - Previous quantity #240, will start dosing for #180 in April [address] Ignacio. alprazolam 0.5 mg Tab RxNorm: 176178 1 Tablet(s) PO BID 09/14/2011 Inactive prn Zithromax 500 mg Tab RxNorm: 863811 1 Tablet(s) PO QD 09/13/201109/10 Inactive prednisone 20 mg Tab RxNorm: 842238 1 Tablet(s) PO BID 08/31/2011 Inactive Ambien 10 mg Tab RxNorm: 281960 1 Tablet(s) PO QHS 08/17/2011 011 Inactive hydrocodone-acetaminophen 10 mg-325 mg Tab RxNorm: 8281702 1-2 T ablet(s) PO TID 08/17/2011 No Stop Date Active as needed for pain - Previous quantity #240, will start dosing for #180 in April 2011 [address] Ignacio. clonidine 0.2 mg Tab RxNorm: 651593 1 Tablet(s) PO TID 08/17/201112/2011 Inactive Ambien 10 mg Tab RxNorm: 508745 1 Tablet(s) PO QHS 08/17/2011 019 Inactive alprazolam 0.5 mg Tab RxNorm: 019469 1 Tablet(s) PO BID 08/17/2011 Inactive prn hydrocodone-acetaminophen 10 mg-325 mg Tab RxNorm: 0427861 1-2 T ablet(s) PO TID 08/17/2011 08/16/2011 Inactive as needed for pain - Previous quantity #240, will start dosing for #180 in April [address] Ignacio. Singulair 10 mg Tab RxNorm: 562836 1 Tablet(s) PO QD 08/17/201108/16 Inactive Klor-Con 8 mEq Tab RxNorm: 635484 1 Tablet(s) PO QD 08/17/20112011 Inactive alprazolam 0.5 mg Tab RxNorm: 724668 1 Tablet(s) PO BID 07/20/2011 Inactive prn Ambien 10 mg Tab RxNorm: 319948 1 Tablet(s) PO QHS 07/20/2011 012 Inactive Singulair 10 mg Tab RxNorm: 471307 1 Tablet(s) PO QD 07/20/201107/19 Inactive Premarin 1.25 mg tablet RxNorm: 103350 2 Tablet(s) PO QD 07/20/2011 0 01/21/2019 Inactive Premarin 1.25 mg tablet RxNorm: 809915 1-2 Tablet(s) PO QD 07/20/20 11 12/16/2011 Inactive Premarin 1.25 mg Tab RxNorm: 473707 1-2 Tablet(s) PO QD 07/06/2011 Inactive alprazolam 0.5 mg Tab RxNorm: 543191 1 Tablet(s) PO BID 06/22/2011 Inactive prn alprazolam 0.5 mg Tab RxNorm: 185354 1 Tablet(s) PO BID 06/22/2011 Inactive prn Premarin 1.25 mg Tab RxNorm: 179658 1 Tablet(s) PO QD m ay do 90 day fill if desired 06/22/2011 07/05/2011 Inactive hydrocodone-acetaminophen 10 mg-325 mg Tab RxNorm: 3957934 1-2 T ablet(s) PO TID 06/22/2011 No Stop Date Active as needed for pain - Previous quantity #240, will start dosing for #180 in April [address] Ignacio. clonidine 0.2 mg Tab RxNorm: 476715 1 Tablet(s) PO TID 05/25/201103/2011 Inactive triamterene-hydrochlorothiazide 75 mg-50 mg Tab RxNorm: 3108 18 1 Tablet(s) PO QD 05/25/2011 09/13/2011 Inactive alprazolam 0.5 mg Tab RxNorm: 351227 1 Tablet(s) PO BID 05/25/2011 Inactive prn hydrocodone-acetaminophen 10 mg-325 mg Tab RxNorm: 1959826 1-2 T ablet(s) PO TID 05/25/2011 No Stop Date Active as needed for pain - Previous quantity #240, will start dosing for #180 in April [address] Ignacio. Robaxin-750 750 mg Tab RxNorm: 651583 2 Tablet(s) PO QHS 05/22/2011 1 Inactive prn spasm hydrocodone-acetaminophen 10 mg-325 mg Tab RxNorm: 2912284 1-2 T ablet(s) PO TID 04/26/2011 No Stop Date Active as needed for pain - Previous quantity #240, will start dosing for #180 in April [address] Ignacio. alprazolam 0.5 mg Tab RxNorm: 915396 1 Tablet(s) PO BID 04/25/2011 Inactive prn Klor-Con 8 mEq Tab RxNorm: 414668 1 Tablet(s) PO QD 03/30/20112010 Inactive Klor-Con 8 mEq Tab RxNorm: 153605 1 Tablet(s) PO QD 03/29/20112010 Inactive hydrocodone-acetaminophen 10 mg-325 mg Tab RxNorm: 7953341 1-2 T ablet(s) PO TID 03/20/2011 04/25/2011 Inactive as needed for pain - Previous quantity #240, will start dosing for #180 in April [address] Ignacio. alprazolam 0.5 mg Tab RxNorm: 451773 1 Tablet(s) PO BID prn 011 03/30/2011 Inactive Ambien 10 mg Tab RxNorm: 376402 1 Tablet(s) PO QHS 03/01/2011 011 Inactive cyclobenzaprine 10 mg Tab RxNorm: 823462 1 Tablet(s) PO TID 011 03/18/2012 Inactive cyclobenzaprine 10 mg Tab RxNorm: 909699 1 Tablet(s) PO TID 011 01/08/2011 Inactive cyclobenzaprine 10 mg Tab RxNorm: 872736 1 Tablet(s) PO TID 011 12/20/2010 Inactive terbinafine 250 mg Tab RxNorm: 443035 1 Tablet(s) PO QD 12/12/2010 Inactive triamterene-hydrochlorothiazide 75 mg-50 mg Tab RxNorm: 3108 18 1 Tablet(s) PO QD 12/07/2010 01/12/2020 Inactive Klor-Con 8 8 mEq Tab RxNorm: 856199 1 Tablet(s) PO QD 12/07/201001/08 Inactive Premarin 1.25 mg Tab RxNorm: 369326 2 Tablet(s) PO QD 12/07/201001/08 Inactive clonidine 0.2 mg Tab RxNorm: 015717 1 Tablet(s) PO TID 12/07/2010 Inactive hydrocodone-acetaminophen 7.5 mg-650 mg Tab RxNorm: 587820 1 Ta blet(s) PO Q4H 12/05/2010 01/21/2019 Inactive hydrocodone-acetaminophen 7.5 mg-650 mg Tab RxNorm: 086660 1 Ta blet(s) PO Q4H 10/26/2010 11/14/2010 Inactive hydrocodone-acetaminophen 7.5 mg-650 mg Tab RxNorm: 493316 1 Ta blet(s) PO Q4H 10/13/2010 10/25/2010 Inactive hydrocodone-acetaminophen 7.5 mg-650 mg Tab RxNorm: 269590 1 Ta blet(s) PO Q4H 09/15/2010 09/12/2010 Inactive alprazolam 0.5 mg Tab RxNorm: 776264 1 Tablet(s) PO BID prn 011 09/12/2010 Inactive terbinafine 250 mg Tab RxNorm: 104914 1 Tablet(s) PO QD 09/05/2010 Inactive hydrocodone-acetaminophen 7.5 mg-650 mg Tab RxNorm: 577511 1 Ta blet(s) PO Q4H 08/29/2010 09/17/2010 Inactive alprazolam 0.5 mg Tab RxNorm: 148162 1 Tablet(s) PO BID prn 010 09/27/2010 Inactive alprazolam 0.5 mg Tab RxNorm: 386980 1 Tablet(s) PO BID prn 010 09/06/2010 Inactive Klor-Con 8 mEq Tab RxNorm: 058989 1 Tablet(s) PO QD 08/08/20102010 Inactive hydrocodone-acetaminophen 7.5 mg-650 mg Tab RxNorm: 037447 1 Ta blet(s) PO Q4H 08/08/2010 08/27/2010 Inactive Ambien 10 mg Tab RxNorm: 152411 1 Tablet(s) PO QHS 08/08/2010 Inactive clonidine 0.2 mg Tab RxNorm: 579520 1 Tablet(s) PO TID 08/08/2010 Inactive Premarin 1.25 mg Tab RxNorm: 006902 2 Tablet(s) PO QD 08/08/201009/12 Inactive Ambien 10 mg Tab RxNorm: 475108 1 Tablet(s) PO QHS 07/18/2010 Inactive alprazolam 0.5 mg Tab RxNorm: 102249 1 Tablet(s) PO BID prn 010 08/07/2010 Inactive hydrocodone-acetaminophen 7.5 mg-650 mg Tab RxNorm: 557431 1 Ta blet(s) PO Q4H 07/12/2010 07/31/2010 Inactive clonidine 0.2 mg Tab RxNorm: 137893 1 Tablet(s) PO TID 06/20/2010 Inactive terbinafine 250 mg Tab RxNorm: 944347 1 Tablet(s) PO QD 05/24/2010 Inactive Clonidine 0.2 mg Tab RxNorm: 116321 1 Tablet(s) PO TID 05/24/201006/2010 Inactive Ambien 10 mg Tab RxNorm: 794683 1 Tablet(s) PO QHS 05/24/2010 Inactive alprazolam 0.5 mg Tab RxNorm: 350663 1 Tablet(s) PO BID 05/24/2010 Inactive Klor-Con 8 mEq Tab RxNorm: 835310 1 Tablet(s) PO QD 05/24/20102009 Inactive alprazolam 0.5 mg Tab RxNorm: 629128 2 Tablet(s) PO QD prn 05/24/2007/17/2010 Inactive triamterene-hydrochlorothiazide 75 mg-50 mg Tab RxNorm: 3108 18 1 Tablet(s) PO QD 05/24/2010 11/19/2010 Inactive Ambien 10 mg Tab RxNorm: 913854 1 Tablet(s) PO QHS 05/23/2010 Inactive Alprazolam 0.5 mg Tab RxNorm: 671746 2 Tablet(s) PO QD prn 05/23/20 10 05/23/2010 Inactive Premarin 1.25 mg Tab RxNorm: 423892 2 Tablet(s) PO QD 05/19/201007/12 Inactive Hydrocodone-Acetaminophen 7.5 mg-650 mg Tab RxNorm: 051014 1 Ta blet(s) PO Q4H 05/19/2010 03/20/2011 Inactive Prednisone 20 mg Tab RxNorm: 889488 1 Tablet(s) PO BID 05/17/2010 Inactive Prednisone 20 mg Tab RxNorm: 940249 1 Tablet(s) PO BID 05/06/201001/2010 Inactive Premarin 1.25 mg Tab RxNorm: 238242 Tablet(s) PO 2 M-W-F, and 1 Ca-Mo-Vto-Sun 05/05/2010 08/02/2010 Inactive Premarin 1.25 mg Tab RxNorm: 481594 Tablet(s) PO 2 M-W-F, and 1 Lh-Ui-Eul-Sun 05/04/2010 05/04/2010 Inactive Premarin 1.25 mg Tab RxNorm: 952470 Tablet(s) PO 2 M-W-F, and 1 Iy-Hk-Bhs-Sun 05/04/2010 05/03/2010 Inactive Prednisone 20 mg Tab RxNorm: 092455 1 Tablet(s) PO BID 04/27/2010 Inactive Alprazolam 0.5 mg Tab RxNorm: 900665 2 Tablet(s) PO QD prn 04/26/20 10 05/22/2010 Inactive Clindamycin 300 mg Cap RxNorm: 142596 2 Capsule(s) PO TID 04/05/2010 04/18/2010 Inactive Terbinafine 250 mg Tab RxNorm: 853506 1 Tablet(s) PO QD 04/04/2010 Inactive Hydrocodone-Acetaminophen 7.5 mg-650 mg Tab RxNorm: 896784 1 Ta blet(s) PO Q4H 03/30/2010 04/18/2010 Inactive Avelox 400 mg Tab RxNorm: 155555 1 Tablet(s) PO QD 03/09/2010 Inactive Hydrocodone-Acetaminophen 7.5 mg-650 mg Tab RxNorm: 615846 1 Ta blet(s) PO Q4H 03/08/2010 03/27/2010 Inactive Alprazolam 0.5 mg Tab RxNorm: 480601 2 Tablet(s) PO QD prn 03/08/20 10 04/25/2010 Inactive Klor-Con 8 mEq Tab RxNorm: 527204 1 Tablet(s) PO QD when takes lasi x 03/07/2010 09/29/2019 Inactive Premarin 1.25 mg Tab RxNorm: 503158 1 Tablet(s) PO QD 03/03/201003/11 Inactive Alprazolam 0.5 mg Tab RxNorm: 979739 1 Tablet(s) PO BID PRN 010 No Stop Date Active triamterene-hydrochlorothiazide 75 mg-50 mg Tab RxNorm: 3108 18 1 Tablet(s) PO QD 02/09/2010 02/03/2011 Inactive Hydrocodone-Acetaminophen 10 mg-750 mg Tab RxNorm: 565622 1 Tablet(s) PO Q4H PRN 02/09/2010 03/20/2011 Inactive Clonidine 0.2 mg Tab RxNorm: 061910 1 Tablet(s) PO TID 01/13/201009/2009 Inactive Alprazolam 0.5 mg Tab RxNorm: 894198 1 Tablet(s) PO BID PRN 010 01/12/2010 Inactive Hydrocodone-Acetaminophen 10 mg-750 mg Tab RxNorm: 248198 1 Tablet(s) PO Q4H PRN 01/13/2010 01/12/2010 Inactive ANGELIQ 1 mg-0.5 mg Tab RxNorm: 9574929 1 Tablet(s) PO QD 12/27/2009 01/23/2010 Inactive Lasix 40 mg Tab RxNorm: 387115 1 Tablet(s) PO QAM 12/14/2009 06/11/20 10 Inactive Vitamin B12 1000mcg Tablet RxNorm: 1 Tablet(s) PO QD No Start Date Active cyclobenzaprine 10 mg tablet RxNorm: 885203 1 Tablet(s) PO TID as needed DO NOT USE WITH BACLOFEN No Start Date Active Vitamin D 5,000 unit Tab RxNorm: 1 Tablet(s) PO QD No Start Date Active vitamin E (dl, acetate) 400 unit Cap RxNorm: 840354 1 Capsule(s ) PO QD No Start Date Active Benadryl 25 mg Cap RxNorm: 5430753 Capsule(s) PO PRN No Start Date Inactive amitriptyline 100 mg tablet RxNorm: 412902 1 Tablet(s) PO QHS No St art Date 11/27/2016 Inactive Zithromax Z-Dustin 250 mg tablet RxNorm: 004484 Tablet(s) PO as di rected No Start Date 07/22/2013 Inactive Klor-Con 8 mEq tablet,extended release RxNorm: 656612 1 Tablet( s) PO BID No Start Date 07/28/2012 Inactive scopolamine 1.5 mg 72 hr Transderm Patch RxNorm: 858671 Application TD Q72H for motion sickness No Start Date 05/25/2013 Inactive Klonopin 1 mg tablet RxNorm: 823079 1-2 Tablet(s) PO QHS as nee ded for sleep No Start Date 06/20/2015 Inactive Klor-Con M20 mEq tablet,extended release RxNorm: 709527 2 Tablet(s) PO BID to use with lasix No Start Date 11/11/2013 Inactive Bystolic 5 mg tablet RxNorm: 542639 1 Tablet(s) PO QD No Start Date 1 Inactive Bystolic 10 mg tablet RxNorm: 982121 1 Tablet(s) PO BID No Start Da te 07/06/2015 Inactive Premarin 1.25 mg Tab RxNorm: 099588 Tablet(s) PO 2 -W-, and 1 Li-Wl-Klr-Sun No Start Date 05/03/2010 Inactive baclofen 20 mg tablet RxNorm: 209509 1 Tablet(s) PO TID as needed for muscle spasm No Start Date 07/22/2015 Inactive hydrocodone-acetaminophen 7.5 mg-650 mg Tab RxNorm: 163687 1 Tablet(s) PO Q4H as needed for pain No Start Date 03/20/2011 Inactive albuterol sulfate 1.25 mg/3 mL Neb Solution RxNorm: 893984 1 Unit Dose INH Q4H 2boxes No Start Date 09/06/2015 Inactive Butrans 20 mcg/hour Transderm Patch RxNorm: 992797 1 TD WEEKLY apply to skin weekly after removing previous. No Start Date 07/22/2013 Inactive Medrol (Dustin) 4 mg tablets in a dose pack RxNorm: 128141 Tablet(s) PO As Directed No Start Date 07/30/2016 Inactive hydrocodone-acetaminophen 10 mg-325 mg Tab RxNorm: 5216430 1-2 Tablet(s) PO TID as needed for pain No Start Date 03/19/2011 Inactive Klonopin 1 mg tablet RxNorm: 615590 1 Tablet(s) PO QHS No Start Date 02/28/2016 Inactive honey topical RxNorm: topical No Start Date 06/16/2018 Inactive Clonidine 0.2 mg Tab RxNorm: 990612 1 Tablet(s) PO TID No Start Date 01/12/2010 Inactive ketorolac 10 mg tablet RxNorm: 981175 1 Tablet(s) PO Q8H No Start D ate 03/18/2012 Inactive as needed for headache Singulair 10 mg Tab RxNorm: 941128 1 Tablet(s) PO QD No Start Date Inactive Premarin 1.25 mg Tab RxNorm: 308169 1 Tablet(s) PO QD No Start Date 1 Inactive Flonase 50 mcg/Actuation Nasal Hope RxNorm: 5884368 1 Hope CECELIA AL BID No Start Date 03/18/2012 Inactive Terbinafine 250 mg Tab RxNorm: 925468 1 Tablet(s) PO QD No Start Da te 04/03/2010 Inactive Fexofenadine 180 mg Tab RxNorm: 9444245 1 Tablet(s) PO QD No Start Date 09/06/2015 Inactive baclofen 20 mg tablet RxNorm: 821633 1 Tablet(s) PO TID as needed N o Start Date 05/25/2014 Inactive Diovan 160 mg Tab RxNorm: 141614 1 Tablet(s) PO QD No Start Date 09/12 Inactive mupirocin 2 % topical ointment RxNorm: 411332 1 Application TOP QID No Start Date 04/25/2016 Inactive ZOFRAN ODT 4 mg Tab, Rapid Dissolve RxNorm: 236937 1 Tablet(s) PO Q4H No Start Date 03/18/2012 Inactive as needed for nausea and vomiting Alprazolam 0.5 mg Tab RxNorm: 389424 1 Tablet(s) PO BID PRN No Star t Date 01/12/2010 Inactive cyclobenzaprine 10 mg tablet RxNorm: 132624 1 Tablet(s) PO TID as needed for muscle spasm No Start Date 10/08/2017 Inactive Albuterol 0.083% Aerosol Solution RxNorm: 1 Appl ication INH Q4H Use one ampule every 4 hrs with nebulizer as needed for shortness of breath. No Start Date 10/09/2010 Inactive lorazepam 1 mg tablet RxNorm: 072641 1 1/2 Tablet(s) PO QHS No Star t Date 02/02/2016 Inactive Melatonin 3 mg Tab RxNorm: 512637 Tablet(s) PO PRN No Start Date 07/11 Inactive Medrol (Dustin) 4 mg Tabs in a Dose Pack RxNorm: 882636 Tablet(s) PO N o Start Date 11/28/2010 Inactive lorazepam 1 mg tablet RxNorm: 704176 1 Tablet(s) PO QHS as need ed for sleep No Start Date 01/30/2016 Inactive hydrocodone-acetaminophen 10 mg-325 mg Tab RxNorm: 8166027 1-2 Tablet(s) PO QID as needed for severe pain No Start Date 03/24/2012 Inactive celecoxib 200 mg capsule RxNorm: 391532 1 Capsule(s) PO BID No Star t Date 06/26/2019 Inactive amlodipine 5 mg-benazepril 20 mg capsule RxNorm: 314399 1 Capsu le(s) PO QD No Start Date 04/10/2017 Inactive Bystolic 20 mg tablet RxNorm: 506768 1/2 Tablet(s) PO QAM No Start Date 01/23/2016 Inactive Bystolic 20 mg tablet RxNorm: 628267 1 Tablet(s) PO QAM No Start Da te 04/25/2016 Inactive Ambien 10 mg Tab RxNorm: 330185 1 Tablet(s) PO QHS No Start Date 05/11 Inactive Klor-Con 8 mEq Tab RxNorm: 816962 1 Tablet(s) PO QD when takes lasix No Start Date 03/06/2010 Inactive aspirin 81 mg tablet RxNorm: 947046 1 Tablet(s) PO QD No Start Date 0 01/29/2018 Inactive hydrocodone-acetaminophen 10 mg-325 mg Tab RxNorm: 1621346 1-2 T ablet(s) PO QID No Start Date 01/10/2012 Inactive Bystolic 10 mg tablet RxNorm: 243301 1 Tablet(s) PO QAM take one daily in the morning. No Start Date 05/28/2013 Inactive nystatin 100,000 unit/mL Oral Susp RxNorm: 092740 5 Milliliter( s) PO QID No Start Date 03/18/2012 Inactive swish and spit scopolamine 1.5 mg 72 hr Transderm Patch RxNorm: 340930 1 Unit Dose TD Q72H for motion sickness No Start Date 12/23/2013 Inactive Hydrocodone-Acetaminophen 10 mg-750 mg Tab RxNorm: 911402 1 Tablet(s) PO Q4H PRN No Start Date 01/12/2010 Inactive Soma 350 mg tablet RxNorm: 194313 1 Tablet(s) PO TID as needed for spasm No Start Date 01/12/2013 Inactive baclofen 10 mg tablet RxNorm: 547699 1 Tablet(s) PO TID as needed for muscle spasm No Start Date 09/18/2019 Inactive Soma 350 mg Tab RxNorm: 638707 1 Tablet(s) PO TID for spasm No Star t Date 01/31/2012 Inactive Co Q-10 400 mg capsule RxNorm: 278227 1 Capsule(s) PO QD No Start D ate 01/21/2019 Inactive nystatin 100,000 unit/gram topical cream RxNorm: 009421 Applica tion TOP BID No Start Date 03/22/2015 Inactive Exforge 5 mg-160 mg Tab RxNorm: 661537 1 Tablet(s) PO QD No Start D ate 10/09/2010 Inactive Hydrocodone-Acetaminophen 7.5 mg-650 mg Tab RxNorm: 819725 1 Ta blet(s) PO Q4H No Start Date 03/07/2010 Inactive Robaxin-750 750 mg Tab RxNorm: 105632 1-2 Tablet(s) PO TID prn spasm No Start Date 05/21/2011 Inactive amlodipine 5 mg tablet RxNorm: 046558 1 Tablet(s) PO QHS No Start D ate 09/29/2015 Inactive oxycodone-acetaminophen 10 mg-325 mg tablet RxNorm: 2995384 1-2 Tablet(s) PO Q6H No Start Date 06/16/2018 Inactive Triamterene-Hydrochlorothiazide 75 mg-50 mg Tab RxNorm: 3108 18 1 Tablet(s) PO QD No Start Date 02/08/2010 Inactive Alprazolam 0.5 mg Tab RxNorm: 938803 2 Tablet(s) PO QD prn No Start Date 03/07/2010 Inactive Bystolic 20 mg tablet RxNorm: 457620 1 Tablet(s) PO QAM No Start Da te 08/17/2015 Inactive ketorolac 10 mg tablet RxNorm: 917048 1 Tablet(s) PO QID prn he adache No Start Date 07/17/2012 Inactive acyclovir 800 mg Tab RxNorm: 900434 1 Tablet(s) PO BID No Start Date 03/18/2012 Inactive duloxetine 60 mg capsule,delayed release RxNorm: 507596 1 Capsu le(s) PO QD No Start Date 09/29/2015 Inactive Norvasc 5 mg tablet RxNorm: 827468 1 Tablet(s) PO QHS No Start Date 1 10/18/2014 Inactive promethazine 25 mg tablet RxNorm: 991824 1 Tablet(s) PO Q8H use sparingly No Start Date 07/22/2013 Inactive alprazolam 0.5 mg tablet RxNorm: 577481 3 Tablet(s) PO QHS No Start Date 06/06/2015 Inactive Lunesta 3 mg tablet RxNorm: 778411 1 Tablet(s) PO QHS No Start Date 0 09/20/2017 Inactive hydrocodone-acetaminophen 10 mg-325 mg Tab RxNorm: 2934920 1-2 Tablet(s) PO TID as needed for pain No Start Date 12/10/2011 Inactive Coricidin HBP Cough & Cold 4 mg-30 mg Tab RxNorm: 4215687 Tablet (s) PO PRN No Start Date 10/09/2010 Inactive Bactroban 2 % Ointment RxNorm: 238915 Application TOP QID to so res No Start Date 02/22/2012 Inactive Flonase 50 mcg/actuation Nasal Hope RxNorm: 409660 2 Hope CECEL[place] AL QHS No Start Date 03/03/2014 Inactive Medication Administered No Medication Administered data Immunizations Vaccine Codes Date Status Tetanus, Diptheria, Pertussis CVX: 115 02/27/2014 Results Observation Observation Code Item Item Code Result Date S ervice Location MEAN GLUC 8737666 Calc Mean Gluc 209 mg/dL 02/12/2020 Unkn own GLYCOSYLATED HEMOGLOBIN TEST 97170 Hgb A1c 69427-6 8.9 % 0 02/12/2020 Unknown GFR CALC 3636246 GFR Non Afr Amr >60 mL/min 02/12/2020 Un known GFR CALC 0367414 GFR Afr Amr >60 mL/min 02/12/2020 Unknow n COMPREHENSIVE METABOLIC 07770 AST 27 U/L 2019 Unknown COMPREHENSIVE METABOLIC 07800 ALT 16 U/L 2019 Unknown COMPREHENSIVE METABOLIC 12846 BUN 22 mg/dL 2019 Unknown COMPREHENSIVE METABOLIC 16476 ALBUMIN 3.9 g/dL 2019 Unknown COMPREHENSIVE METABOLIC 82693 CHLORIDE 98 mmol/L 2019 Unknown COMPREHENSIVE METABOLIC 25418 Bili Total 0.5 mg/dL 02/11 Unknown COMPREHENSIVE METABOLIC 41503 ALK PHOS 72 U/L 2019 Unknown COMPREHENSIVE METABOLIC 27386 SODIUM 137 mmol/L 02/11 Unknown COMPREHENSIVE METABOLIC 19544 CREATININE 0.96 mg/dL 12/2019 Unknown COMPREHENSIVE METABOLIC 55304 CALCIUM 9.1 mg/dL 2019 Unknown COMPREHENSIVE METABOLIC 36725 POTASSIUM 4.6 mmol/L 02/11 Unknown COMPREHENSIVE METABOLIC 02102 Total Protein 6.5 g/dL Unknown COMPREHENSIVE METABOLIC 28432 Glucose 129 mg/dL 2019 Unknown COMPREHENSIVE METABOLIC 92566 Bicarbonate 31 mmol/L 12/2019 Unknown COMPREHENSIVE METABOLIC 40557 AGAP 8 mmol/L 2019 Unknown COMPREHENSIVE METABOLIC 60644 AST 15 U/L 2019 Unknown COMPREHENSIVE METABOLIC 69539 ALT 13 U/L 2019 Unknown COMPREHENSIVE METABOLIC 27674 BUN 12 mg/dL 2019 Unknown COMPREHENSIVE METABOLIC 94217 ALBUMIN 3.9 g/dL 2019 Unknown COMPREHENSIVE METABOLIC 24789 CHLORIDE 97 mmol/L 2019 Unknown COMPREHENSIVE METABOLIC 90262 Bili Total 0.4 mg/dL 09/29 Unknown COMPREHENSIVE METABOLIC 16130 ALK PHOS 130 U/L 2019 Unknown COMPREHENSIVE METABOLIC 98679 SODIUM 136 mmol/L 09/29 Unknown COMPREHENSIVE METABOLIC 84915 CREATININE 0.92 mg/dL 09/11 Unknown COMPREHENSIVE METABOLIC 60578 CALCIUM 9.1 mg/dL 2019 Unknown COMPREHENSIVE METABOLIC 21794 POTASSIUM 4.4 mmol/L 09/29 Unknown COMPREHENSIVE METABOLIC 91063 Total Protein 6.2 g/dL Unknown COMPREHENSIVE METABOLIC 76227 Glucose 391 mg/dL 2019 Unknown COMPREHENSIVE METABOLIC 39777 Bicarbonate 30 mmol/L 09/11 Unknown COMPREHENSIVE METABOLIC 08490 AGAP 9 mmol/L 2019 Unknown MEAN GLUC 0380208 Calc Mean Gluc 332 mg/dL 09/29/2019 Unkn own COMPLETE BLOOD COUNT [id number] WBC 7.0 10e9/L 09/29/19 Unknown COMPLETE BLOOD COUNT [id number] RBC 4.69 10e12/L 2019 Unknown COMPLETE BLOOD COUNT [id number] HEMOGLOBIN 14.6 g/dL 09/29/19 Unknown COMPLETE BLOOD COUNT [id number] HEMATOCRIT 45.2 % 09/29/19 Unknown COMPLETE BLOOD COUNT [id number] MCV 96.4 fL 0 Unknown COMPLETE BLOOD COUNT 8763102 MCH 31.1 pg 0 Unknown COMPLETE BLOOD COUNT [id number] MCHC 32.3 g/dL 0 Unknown COMPLETE BLOOD COUNT [id number] PLATELET COUNT 209 10e9/L Unknown COMPLETE BLOOD COUNT [id number] Mean Plt Volume 9.8 fL Unknown COMPLETE BLOOD COUNT [id number] Neut Auto 48.1 % 0 Unknown COMPLETE BLOOD COUNT [id number] Lymph Auto 36.5 % 09/29/19 Unknown COMPLETE BLOOD COUNT [id number] [place] Auto 8.6 % 0 Unknown COMPLETE BLOOD COUNT [id number] RDW 13.4 % 0 Unknown COMPLETE BLOOD COUNT 7273850 Eos Auto 6.5 % 0 Unknown COMPLETE BLOOD COUNT 4454904 Baso Auto 0.3 % 0 Unknown COMPLETE BLOOD COUNT [id number] Neutrophil Abs 3.37 10e9/L Unknown COMPLETE BLOOD COUNT [id number] Lymphocyte Abs 2.56 10e9/L Unknown COMPLETE BLOOD COUNT [id number] Monocyte Abs 0.60 10e9/L 09/11 Unknown COMPLETE BLOOD COUNT [id number] Eosinophil Abs 0.46 10e9/L Unknown COMPLETE BLOOD COUNT [id number] RDW-SD 45.9 fL 0 Unknown COMPLETE BLOOD COUNT [id number] Basophil Abs 0.02 10e9/L 09/11 Unknown LIPID GROUP 77187 Cholesterol 248 mg/dL 09/29/2019 Unkno wn LIPID GROUP 77854 Triglyceride 898 mg/dL 09/29/2019 Unkn own LIPID GROUP 01787 HDL CHOLESTEROL 41 mg/dL 09/29/2019 U nknown LIPID GROUP 11985 Chol/HDL Ratio 6.05 ratio 09/29/2019 U nknown LIPID GROUP 21089 NON-HDL Chol 207 mg/dL 09/29/2019 Unkn own LIPID GROUP 67945 LDL Cholesterol N/A Trig >400 020 Unknown GLYCOSYLATED HEMOGLOBIN TEST 24183 Hgb A1c 48513-3 13.2 % 0 09/29/2019 Unknown FREE T4 62341 T4 Free 0.75 ng/dL 09/29/2019 Unknown GFR CALC 1819657 GFR Non Afr Amr >60 mL/min 09/29/2019 Un known GFR CALC 5243779 GFR Afr Amr >60 mL/min 09/29/2019 Unknow n THYROID STIMULATING HORMONE 98520 TSH 4.245 uIU/mL 09/29/2019 Unknown COMPLETE BLOOD COUNT [id number] WBC 10.7 10e9/L 018 Unknown COMPLETE BLOOD COUNT [id number] RBC 4.59 10e12/L 2017 Unknown COMPLETE BLOOD COUNT [id number] HEMOGLOBIN 14.8 g/dL 12/11/19 18 Unknown COMPLETE BLOOD COUNT [id number] HEMATOCRIT 44.9 % 12/11/19 18 Unknown COMPLETE BLOOD COUNT 2347251 MCV 97.8 fL 8 Unknown COMPLETE BLOOD COUNT [id number] MCH 32.2 pg 8 Unknown COMPLETE BLOOD COUNT 1523537 MCHC 33.0 g/dL 8 Unknown COMPLETE BLOOD COUNT [id number] PLATELET COUNT 261 10e9/L 10/2017 Unknown COMPLETE BLOOD COUNT [id number] Mean Plt Volume 9.5 fL 10/2017 Unknown COMPLETE BLOOD COUNT 1483760 Neut Auto 59.9 % 8 Unknown COMPLETE BLOOD COUNT [id number] Lymph Auto 27.4 % 12/11/19 18 Unknown COMPLETE BLOOD COUNT [id number] [place] Auto 8.2 % 8 Unknown COMPLETE BLOOD COUNT 9861052 RDW 13.3 % 8 Unknown COMPLETE BLOOD COUNT [id number] Eos Auto 4.1 % 8 Unknown COMPLETE BLOOD COUNT [id number] Baso Auto 0.4 % 8 Unknown COMPLETE BLOOD COUNT [id number] Neutrophil Abs 6.41 10e9/L Unknown COMPLETE BLOOD COUNT [id number] Lymphocyte Abs 2.93 10e9/L Unknown COMPLETE BLOOD COUNT [id number] Monocyte Abs 0.88 10e9/L 10/2017 Unknown COMPLETE BLOOD COUNT [id number] Eosinophil Abs 0.44 10e9/L Unknown COMPLETE BLOOD COUNT [id number] RDW-SD 46.2 fL 8 Unknown COMPLETE BLOOD COUNT [id number] Basophil Abs 0.04 10e9/L 10/2017 Unknown THYROID STIMULATING HORMONE 31369 TSH 4.015 uIU/mL 12/10/2017 Unknown COMPREHENSIVE METABOLIC 94877 AST 25 U/L 2017 Unknown COMPREHENSIVE METABOLIC 50138 ALT 17 U/L 2017 Unknown COMPREHENSIVE METABOLIC 00585 BUN 19 mg/dL 2017 Unknown COMPREHENSIVE METABOLIC 14511 ALBUMIN 4.0 g/dL 2017 Unknown COMPREHENSIVE METABOLIC 40586 CHLORIDE 91 mmol/L 2017 Unknown COMPREHENSIVE METABOLIC 66982 Bili Total 0.5 mg/dL 12/10 Unknown COMPREHENSIVE METABOLIC 46671 ALK PHOS 75 U/L 2017 Unknown COMPREHENSIVE METABOLIC 37133 SODIUM 136 mmol/L 12/10 Unknown COMPREHENSIVE METABOLIC 55375 CREATININE 1.05 mg/dL 10/2017 Unknown COMPREHENSIVE METABOLIC 76689 CALCIUM 8.9 mg/dL 2017 Unknown COMPREHENSIVE METABOLIC 25525 POTASSIUM 3.4 mmol/L 12/10 Unknown COMPREHENSIVE METABOLIC 08042 Total Protein 6.5 g/dL Unknown COMPREHENSIVE METABOLIC 71244 Glucose 138 mg/dL 2017 Unknown COMPREHENSIVE METABOLIC 62377 Bicarbonate 35 mmol/L 10/2017 Unknown COMPREHENSIVE METABOLIC 97245 AGAP 10 mmol/L 2017 Unknown MEAN GLUC 7634185 Calc Mean Gluc 171 mg/dL 12/10/2017 Unkn own LIPID GROUP 50595 Cholesterol 204 mg/dL 12/10/2017 Unkno wn LIPID GROUP 40697 Triglyceride 411 mg/dL 12/10/2017 Unkn own LIPID GROUP 54713 HDL CHOLESTEROL 50 mg/dL 12/10/2017 U nknown LIPID GROUP 18027 Chol/HDL Ratio 4.08 ratio 12/10/2017 U nknown LIPID GROUP 20521 NON-HDL Chol 154 mg/dL 12/10/2017 Unkn own LIPID GROUP 15284 LDL Cholesterol N/A Trig >400 018 Unknown GLYCOSYLATED HEMOGLOBIN TEST 21553 Hgb A1c 44871-2 7.6 % 0 12/10/2017 Unknown FREE T4 76027 T4 Free 1.40 ng/dL 12/10/2017 Unknown GFR CALC 0099303 GFR Non Afr Amr 55 mL/min 12/10/2017 Unk nown GFR CALC 0609033 GFR Afr Amr >60 mL/min 12/10/2017 Unknow n GFR CALC 8854672 GFR Non Afr Amr 48 mL/min 06/28/2017 Unk nown GFR CALC 4394071 GFR Afr Amr 59 mL/min 06/28/2017 Unknown COMPREHENSIVE METABOLIC 98062 AST 32 U/L 2016 Unknown COMPREHENSIVE METABOLIC 95342 ALT 22 U/L 2016 Unknown COMPREHENSIVE METABOLIC 32221 BUN 23 mg/dL 2016 Unknown COMPREHENSIVE METABOLIC 88386 ALBUMIN 4.7 g/dL 2016 Unknown COMPREHENSIVE METABOLIC 02584 CHLORIDE 89 mmol/L 2016 Unknown COMPREHENSIVE METABOLIC 80506 Bili Total 0.5 mg/dL 06/28 Unknown COMPREHENSIVE METABOLIC 38134 ALK PHOS 90 U/L 2016 Unknown COMPREHENSIVE METABOLIC 72223 SODIUM 135 mmol/L 06/28 Unknown COMPREHENSIVE METABOLIC 34436 CREATININE 1.18 mg/dL 06/10 Unknown COMPREHENSIVE METABOLIC 13555 CALCIUM 9.7 mg/dL 2016 Unknown COMPREHENSIVE METABOLIC 01190 POTASSIUM 3.5 mmol/L 06/28 Unknown COMPREHENSIVE METABOLIC 40179 Total Protein 7.7 g/dL Unknown COMPREHENSIVE METABOLIC 33252 Glucose 129 mg/dL 2016 Unknown COMPREHENSIVE METABOLIC 72727 Bicarbonate 34 mmol/L 06/10 Unknown COMPREHENSIVE METABOLIC 54662 AGAP 12 mmol/L 2016 Unknown LIPID GROUP 42850 HDL TEST 64 MG/DL 08/27/2014 Unknown LIPID GROUP 65375 TRIG 222 MG/DL 08/27/2014 Unknown LIPID GROUP 21103 TEST LDL 209 MG/DL 08/27/2014 Unknown LIPID GROUP 51785 CHOL 317 MG/DL 08/27/2014 Unknown LIPID GROUP 57350 RCHOL/HDL 4.95 RATIO 08/27/2014 Unknow n LIPID GROUP 10366 NON-HDL CH 253 MG/DL 08/27/2014 Unknow n GFR CALC 4021040 GFR AA >60 ML/MIN 08/27/2014 Unknown GFR CALC 7744500 GFR NON-AA >60 ML/MIN 08/27/2014 Unknown COMPLETE BLOOD COUNT 3375456 WBC 7.0 10e9/L 08/27/20 14 Unknown COMPLETE BLOOD COUNT [id number] RBC 4.98 10e12/L 2013 Unknown COMPLETE BLOOD COUNT 9555935 HGB 15.6 g/dL 4 Unknown COMPLETE BLOOD COUNT 2051741 HCT DET 46.5 % 4 Unknown COMPLETE BLOOD COUNT 9554291 MCV 93.4 fL 4 Unknown COMPLETE BLOOD COUNT 4202097 MCH 31.3 pg 4 Unknown COMPLETE BLOOD COUNT 5869361 MCHC 33.5 g/dL 4 Unknown COMPLETE BLOOD COUNT 9362589 PLT 309 10e9/L 08/27/20 14 Unknown COMPLETE BLOOD COUNT 0824537 MPV 9.6 fL 4 Unknown COMPLETE BLOOD COUNT 0059273 CADEN % 57.2 % 4 Unknown COMPLETE BLOOD COUNT [id number] LY % 33.2 % 4 Unknown COMPLETE BLOOD COUNT 2307362 MON % 7.3 % 4 Unknown COMPLETE BLOOD COUNT 9447909 EOS % 2.0 % 4 Unknown COMPLETE BLOOD COUNT [id number] BASO % 0.3 % 4 Unknown COMPLETE BLOOD COUNT 5941219 RDW 13.7 % 4 Unknown COMPLETE BLOOD COUNT [id number] ABS CADEN 4.00 10e9/L 014 Unknown COMPLETE BLOOD COUNT [id number] ABS LYMPH 2.32 10e9/L 014 Unknown COMPLETE BLOOD COUNT [id number] ABS MONO 0.51 10e9/L 014 Unknown COMPLETE BLOOD COUNT [id number] ABS EOS 0.14 10e9/L 014 Unknown COMPLETE BLOOD COUNT [id number] ABS BASO 0.02 10e9/L 014 Unknown COMPLETE BLOOD COUNT 9883504 RDW-SD 45.1 fL 4 Unknown COMPREHENSIVE METABOLIC 86217 AST 13 U/L 2013 Unknown COMPREHENSIVE METABOLIC 32020 ALT 11 IU/L 2013 Unknown COMPREHENSIVE METABOLIC 08641 BUN 23 MG/DL 2013 Unknown COMPREHENSIVE METABOLIC 17438 ALBUMIN 4.4 GM/DL 2013 Unknown COMPREHENSIVE METABOLIC 50622 CHLORIDE 99 MMOL/L 2013 Unknown COMPREHENSIVE METABOLIC 66969 BILI TOT 0.5 MG/DL 2013 Unknown COMPREHENSIVE METABOLIC 06437 ALK PHOS 56 U/L 2013 Unknown COMPREHENSIVE METABOLIC 94542 SODIUM 138 MMOL/L 08/27 Unknown COMPREHENSIVE METABOLIC 88111 CREATININE 0.95 MG/DL 08/10 Unknown COMPREHENSIVE METABOLIC 05860 CALCIUM 9.8 MG/DL 2013 Unknown COMPREHENSIVE METABOLIC 94709 POTASSIUM 3.5 MMOL/L 08/27 Unknown COMPREHENSIVE METABOLIC 85347 PROT TOT 6.8 GM/DL 2013 Unknown COMPREHENSIVE METABOLIC 23945 Glucose 90 MG/DL 2013 Unknown COMPREHENSIVE METABOLIC 39604 BICARB 34 MMOL/L 2013 Unknown COMPREHENSIVE METABOLIC 29286 ANION GAP 5 MEQ/L 2013 Unknown LIPASE 28463 LIPASE 11 IU/L 07/21/2014 Unknown AMYLASE 42943 AMYLASE 39 IU/L 07/21/2014 Unknown HEMOGLOBIN A1C (GLYCOSYLATED) 2707443 A1C HPLC 89572-2 6.2 % 03/05/2013 Unknown THYROID STIMULATING HORMONE 83791 TSH 6.986 uIU/ML 03/05/2013 Unknown COMPLETE BLOOD COUNT [id number] WBC 12.7 10e9/L 013 Unknown COMPLETE BLOOD COUNT 4321213 RBC 4.53 10e12/L 2012 Unknown COMPLETE BLOOD COUNT 0339298 HGB 14.7 g/dL 3 Unknown COMPLETE BLOOD COUNT 5086103 HCT DET 43.1 % 3 Unknown COMPLETE BLOOD COUNT 1251749 MCV 95.1 fL 3 Unknown COMPLETE BLOOD COUNT 3692924 MCH 32.5 pg 3 Unknown COMPLETE BLOOD COUNT 8221696 MCHC 34.1 g/dL 3 Unknown COMPLETE BLOOD COUNT 7897919 PLT 346 10e9/L 03/05/20 13 Unknown COMPLETE BLOOD COUNT 9187274 MPV 9.5 fL 3 Unknown COMPLETE BLOOD COUNT 4582828 CADEN % 67.6 % 3 Unknown COMPLETE BLOOD COUNT 2259167 LY % 22.1 % 3 Unknown COMPLETE BLOOD COUNT 0908297 MON % 6.6 % 3 Unknown COMPLETE BLOOD COUNT 2263103 EOS % 3.3 % 3 Unknown COMPLETE BLOOD COUNT 0848485 BASO % 0.4 % 3 Unknown COMPLETE BLOOD COUNT 1234691 RDW 14.0 % 3 Unknown COMPLETE BLOOD COUNT [id number] ABS CADEN 8.59 10e9/L 013 Unknown COMPLETE BLOOD COUNT [id number] ABS LYMPH 2.81 10e9/L 013 Unknown COMPLETE BLOOD COUNT 7873513 ABS MONO 0.84 10e9/L 013 Unknown COMPLETE BLOOD COUNT [id number] ABS EOS 0.42 10e9/L 013 Unknown COMPLETE BLOOD COUNT [id number] ABS BASO 0.05 10e9/L 013 Unknown COMPLETE BLOOD COUNT 2016908 RDW-SD 46.0 fL 3 Unknown FREE T4 17079 FREE T4 1.14 NG/DL 03/05/2013 Unknown COMPREHENSIVE METABOLIC 01203 AST 17 U/L 2012 Unknown COMPREHENSIVE METABOLIC 59292 ALT 12 IU/L 2012 Unknown COMPREHENSIVE METABOLIC 05001 BUN 24 MG/DL 2012 Unknown COMPREHENSIVE METABOLIC 79541 ALBUMIN 4.2 GM/DL 2012 Unknown COMPREHENSIVE METABOLIC 99080 CHLORIDE 93 MMOL/L 2012 Unknown COMPREHENSIVE METABOLIC 62970 BILI TOT 0.5 MG/DL 2012 Unknown COMPREHENSIVE METABOLIC 48891 ALK PHOS 75 U/L 2012 Unknown COMPREHENSIVE METABOLIC 51937 SODIUM 141 MMOL/L 03/05 Unknown COMPREHENSIVE METABOLIC 74424 CREATININE 1.36 MG/DL 02/09 Unknown COMPREHENSIVE METABOLIC 69449 CALCIUM 9.2 MG/DL 2012 Unknown COMPREHENSIVE METABOLIC 44231 POTASSIUM 3.1 MMOL/L 03/05 Unknown COMPREHENSIVE METABOLIC 02723 PROT TOT 6.9 GM/DL 2012 Unknown COMPREHENSIVE METABOLIC 07962 Glucose 123 MG/DL 2012 Unknown COMPREHENSIVE METABOLIC 53640 BICARB 36 MMOL/L 2012 Unknown COMPREHENSIVE METABOLIC 37967 ANION GAP 12 MEQ/L 2012 Unknown GFR CALC 5910055 GFR AA 51.0L ML/MIN 03/05/2013 Unknow n GFR CALC 9503849 GFR NON-AA 42.0L ML/MIN 03/05/2013 Unkno wn COMPREHENSIVE METABOLIC 62756 AST 14 U/L 2012 Unknown COMPREHENSIVE METABOLIC 08222 ALT 11 IU/L 2012 Unknown COMPREHENSIVE METABOLIC 65189 BUN 16 MG/DL 2012 Unknown COMPREHENSIVE METABOLIC 09992 ALBUMIN 4.2 GM/DL 2012 Unknown COMPREHENSIVE METABOLIC 55416 CHLORIDE 98 MMOL/L 2012 Unknown COMPREHENSIVE METABOLIC 14936 BILI TOT 0.4 MG/DL 2012 Unknown COMPREHENSIVE METABOLIC 03396 ALK PHOS 77 U/L 2012 Unknown COMPREHENSIVE METABOLIC 99835 SODIUM 139 MMOL/L 09/25 Unknown COMPREHENSIVE METABOLIC 18584 CREATININE 0.86 MG/DL 09/10 Unknown COMPREHENSIVE METABOLIC 46075 CALCIUM 9.5 MG/DL 2012 Unknown COMPREHENSIVE METABOLIC 62047 POTASSIUM 3.8 MMOL/L 09/25 Unknown COMPREHENSIVE METABOLIC 92897 PROT TOT 6.8 GM/DL 2012 Unknown COMPREHENSIVE METABOLIC 62369 Glucose 91 MG/DL 2012 Unknown COMPREHENSIVE METABOLIC 30377 BICARB 32 MMOL/L 2012 Unknown COMPREHENSIVE METABOLIC 02487 ANION GAP 9 MEQ/L 2012 Unknown FREE T4 42454 FREE T4 0.98 NG/DL 09/25/2012 Unknown THYROID STIMULATING HORMONE 49352 TSH 1.736 uIU/ML 09/25/2012 Unknown C-REACTIVE PROTEIN (CRP) QUANT 36093 CRP 2.3 MG/DL 09/25/2012 Unknown COMPLETE BLOOD COUNT [id number] WBC 11.9 10e9/L 013 Unknown COMPLETE BLOOD COUNT 1235006 RBC 4.87 10e12/L 2012 Unknown COMPLETE BLOOD COUNT [id number] HGB 15.1 g/dL 3 Unknown COMPLETE BLOOD COUNT [id number] HCT DET 44.8 % 3 Unknown COMPLETE BLOOD COUNT [id number] MCV 92.0 fL 3 Unknown COMPLETE BLOOD COUNT [id number] MCH 31.0 pg 3 Unknown COMPLETE BLOOD COUNT [id number] MCHC 33.7 g/dL 3 Unknown COMPLETE BLOOD COUNT [id number] PLT 343 10e9/L 09/25/19 13 Unknown COMPLETE BLOOD COUNT [id number] MPV 9.0 fL 3 Unknown COMPLETE BLOOD COUNT [id number] CADEN % 68.2 % 3 Unknown COMPLETE BLOOD COUNT [id number] LY % 22.4 % 3 Unknown COMPLETE BLOOD COUNT [id number] MON % 6.4 % 3 Unknown COMPLETE BLOOD COUNT [id number] EOS % 2.7 % 3 Unknown COMPLETE BLOOD COUNT [id number] BASO % 0.3 % 3 Unknown COMPLETE BLOOD COUNT [id number] RDW 13.8 % 3 Unknown COMPLETE BLOOD COUNT [id number] ABS CADEN 8.12 10e9/L 013 Unknown COMPLETE BLOOD COUNT [id number] ABS LYMPH 2.67 10e9/L 013 Unknown COMPLETE BLOOD COUNT [id number] ABS MONO 0.76 10e9/L 013 Unknown COMPLETE BLOOD COUNT [id number] ABS EOS 0.32 10e9/L 013 Unknown COMPLETE BLOOD COUNT [id number] ABS BASO 0.04 10e9/L 013 Unknown COMPLETE BLOOD COUNT [id number] RDW-SD 45.6 fL 3 Unknown GFR CALC [id number] GFR AA >60 ML/MIN 09/25/2012 Unknown GFR CALC [id number] GFR NON-AA >60 ML/MIN 09/25/2012 Unknown ERYTHROCYTE SEDIMENTATION RATE 31113 ESR 19 MM/HR 05/06/2012 Unknown VITAMIN B 12 FOLIC ACID [id number] VIT B 12 922 PG/ML 04/11 Unknown VITAMIN B 12 FOLIC ACID [id number] FOLIC ACID 13.6 NG/ML Unknown URIC ACID 79662 URIC ACID 7.8 MG/DL 05/06/2012 Unknown COMPLETE BLOOD COUNT [id number] WBC 11.9 10e9/L 012 Unknown COMPLETE BLOOD COUNT 28156 RBC 5.30 10e12/L 2011 Unknown COMPLETE BLOOD COUNT [id number] HGB 16.6 g/dL 2 Unknown COMPLETE BLOOD COUNT 85124 HCT DET 47.2 % 2 Unknown COMPLETE BLOOD COUNT 50377 MCV 89.1 fL 2 Unknown COMPLETE BLOOD COUNT 73967 MCH 31.3 pg 2 Unknown COMPLETE BLOOD COUNT 03179 MCHC 35.2 g/dL 2 Unknown COMPLETE BLOOD COUNT 07656 PLT 362 10e9/L 05/06/20 12 Unknown COMPLETE BLOOD COUNT 88649 MPV 9.4 fL 2 Unknown COMPLETE BLOOD COUNT 63945 CADEN % 68.2 % 2 Unknown COMPLETE BLOOD COUNT 31108 LY % 22.0 % 2 Unknown COMPLETE BLOOD COUNT 57992 MON % 6.9 % 2 Unknown COMPLETE BLOOD COUNT 13153 EOS % 2.6 % 2 Unknown COMPLETE BLOOD COUNT 02187 BASO % 0.3 % 2 Unknown COMPLETE BLOOD COUNT 87662 RDW 12.8 % 2 Unknown COMPLETE BLOOD COUNT 45006 ABS CADEN 8.12 10e9/L 012 Unknown COMPLETE BLOOD COUNT 74369 ABS LYMPH 2.62 10e9/L 012 Unknown COMPLETE BLOOD COUNT 76705 ABS MONO 0.82 10e9/L 012 Unknown COMPLETE BLOOD COUNT 29134 ABS EOS 0.31 10e9/L 012 Unknown COMPLETE BLOOD COUNT 66976 ABS BASO 0.04 10e9/L 012 Unknown COMPLETE BLOOD COUNT 11143 RDW-SD 41.5 fL 2 Unknown GFR CALC [id number] GFR AA >60 ML/MIN 05/06/2012 Unknown GFR CALC [id number] GFR NON-AA 58.0L ML/MIN 05/06/2012 Unkno wn FREE T4 96388 FREE T4 1.15 NG/DL 05/06/2012 Unknown THYROID STIMULATING HORMONE 74497 TSH 1.568 uIU/ML 05/06/2012 Unknown COMPREHENSIVE METABOLIC 96291 AST 20 U/L 2011 Unknown COMPREHENSIVE METABOLIC 63930 ALT 12 IU/L 2011 Unknown COMPREHENSIVE METABOLIC 48973 BUN 20 MG/DL 2011 Unknown COMPREHENSIVE METABOLIC 82963 ALBUMIN 4.5 GM/DL 2011 Unknown COMPREHENSIVE METABOLIC 38958 CHLORIDE 91 MMOL/L 2011 Unknown COMPREHENSIVE METABOLIC 76508 BILI TOT 0.4 MG/DL 2011 Unknown COMPREHENSIVE METABOLIC 35674 ALK PHOS 73 U/L 2011 Unknown COMPREHENSIVE METABOLIC 66822 SODIUM 139 MMOL/L 05/06 Unknown COMPREHENSIVE METABOLIC 00915 CREATININE 1.02 MG/DL 04/11 Unknown COMPREHENSIVE METABOLIC 61637 CALCIUM 9.7 MG/DL 2011 Unknown COMPREHENSIVE METABOLIC 90023 POTASSIUM 3.1 MMOL/L 05/06 Unknown COMPREHENSIVE METABOLIC 73309 PROT TOT 7.3 GM/DL 2011 Unknown COMPREHENSIVE METABOLIC 45847 Glucose 118 MG/DL 2011 Unknown COMPREHENSIVE METABOLIC 71562 BICARB 33 MMOL/L 2011 Unknown COMPREHENSIVE METABOLIC 31118 ANION GAP 15 MEQ/L 2011 Unknown Procedures Procedure Codes Date COMPREHEN METABOLIC PANEL CPT-4: 15233 02/12/2020 A1C HPLC CPT-4: 51116 02/12/2020 ROUTINE VENIPUNCTURE CPT-4: 74272 09/29/2019 URINALYSIS NONAUTO W/O SCOPE CPT-4: 39490 09/29/2019 COMPREHEN METABOLIC PANEL CPT-4: 23824 09/29/2019 LIPID PANEL CPT-4: 96953 09/29/2019 A1C HPLC CPT-4: 33991 09/29/2019 ASSAY OF FREE THYROXINE CPT-4: 32972 09/29/2019 ASSAY THYROID STIM HORMONE CPT-4: 63598 09/29/2019 COMPLETE CBC W/AUTO DIFF WBC CPT-4: 59064 09/29/2019 URINALYSIS NONAUTO W/O SCOPE CPT-4: 35482 09/30/2018 MICROALBUMIN QUANTITATIVE CPT-4: 14054 09/30/2018 CEFTRIAXONE SODIUM INJECTION CPT-4: J0696 06/19/2018 THER/PROPH/DIAG INJ SC/IM CPT-4: 41781 06/19/2018 CEFTRIAXONE SODIUM INJECTION CPT-4: J0696 06/17/2018 THER/PROPH/DIAG INJ SC/IM CPT-4: 69644 06/17/2018 THER/PROPH/DIAG INJ SC/IM CPT-4: 41057 05/16/2018 KETOROLAC TROMETHAMINE INJ CPT-4: J1885 05/16/2018 ONDANSETRON HCL INJECTION CPT-4: J2405 05/16/2018 THER/PROPH/DIAG INJ SC/IM CPT-4: 45445 05/16/2018 ROUTINE VENIPUNCTURE CPT-4: 16197 03/20/2018 COMPREHEN METABOLIC PANEL CPT-4: 10522 03/20/2018 DEXAMETHASONE SODIUM PHOS CPT-4: J1100 02/11/2018 THER/PROPH/DIAG INJ SC/IM CPT-4: 12989 02/11/2018 TRIAMCINOLONE ACET INJ NOS CPT-4: J3301 02/11/2018 CEFTRIAXONE SODIUM INJECTION CPT-4: J0696 02/01/2018 THER/PROPH/DIAG INJ SC/IM CPT-4: 37957 02/01/2018 CEFTRIAXONE SODIUM INJECTION CPT-4: J0696 01/30/2018 THER/PROPH/DIAG INJ SC/IM CPT-4: 06386 01/30/2018 ROUTINE VENIPUNCTURE CPT-4: 39737 12/10/2017 ASSAY OF FREE THYROXINE CPT-4: 86340 12/10/2017 ASSAY THYROID STIM HORMONE CPT-4: 78070 12/10/2017 COMPREHEN METABOLIC PANEL CPT-4: 65548 12/10/2017 COMPLETE CBC W/AUTO DIFF WBC CPT-4: 12168 12/10/2017 LIPID PANEL CPT-4: 36407 12/10/2017 A1C HPLC CPT-4: 49038 12/10/2017 CEFTRIAXONE SODIUM INJECTION CPT-4: J0696 12/10/2017 THER/PROPH/DIAG INJ SC/IM CPT-4: 79046 12/10/2017 CEFTRIAXONE SODIUM INJECTION CPT-4: J0696 12/07/2017 THER/PROPH/DIAG INJ SC/IM CPT-4: 41454 12/07/2017 DEXAMETHASONE SODIUM PHOS CPT-4: J1100 12/07/2017 THER/PROPH/DIAG INJ SC/IM CPT-4: 00795 12/07/2017 CEFTRIAXONE SODIUM INJECTION CPT-4: J0696 10/08/2017 THER/PROPH/DIAG INJ SC/IM CPT-4: 13850 10/08/2017 CEFTRIAXONE SODIUM INJECTION CPT-4: J0696 09/21/2017 THER/PROPH/DIAG INJ SC/IM CPT-4: 69684 09/21/2017 CEFTRIAXONE SODIUM INJECTION CPT-4: J0696 09/20/2017 THER/PROPH/DIAG INJ SC/IM CPT-4: 66378 09/20/2017 REMOVAL OF NAIL PLATE CPT-4: 64111 08/29/2017 THER/PROPH/DIAG INJ SC/IM CPT-4: 25172 08/29/2017 TRIAMCINOLONE ACET INJ NOS CPT-4: J3301 08/29/2017 CEFTRIAXONE SODIUM INJECTION CPT-4: J0696 08/29/2017 THER/PROPH/DIAG INJ SC/IM CPT-4: 09192 08/29/2017 DESTRUCT PREMALG LESION (Cryosurgery) CPT-4: 69861 ROUTINE VENIPUNCTURE CPT-4: 75276 06/27/2017 ASSAY OF FREE THYROXINE CPT-4: 88795 06/27/2017 ASSAY THYROID STIM HORMONE CPT-4: 37340 06/27/2017 COMPREHEN METABOLIC PANEL CPT-4: 14321 06/27/2017 COMPLETE CBC W/AUTO DIFF WBC CPT-4: 43949 06/27/2017 EXC TR-EXT B9+REECE 0.5 CM< CPT-4: 36426 01/24/2017 THER/PROPH/DIAG INJ SC/IM CPT-4: 34751 08/02/2016 DEXAMETHASONE SODIUM PHOS CPT-4: J1100 08/02/2016 DESTRUCT PREMALG LESION (Cryosurgery) CPT-4: 60970 EXC TR-EXT B9+REECE 0.5 CM< CPT-4: 16172 08/01/2016 AEROBIC WOUND CULTURE & STN CPT-4: 43780 07/06/2016 CEFTRIAXONE SODIUM INJECTION CPT-4: J0696 05/25/2016 THER/PROPH/DIAG INJ SC/IM CPT-4: 34944 05/25/2016 THER/PROPH/DIAG INJ SC/IM CPT-4: 53288 04/26/2016 DEXAMETHASONE SODIUM PHOS CPT-4: J1100 04/26/2016 CEFTRIAXONE SODIUM INJECTION CPT-4: J0696 04/26/2016 THER/PROPH/DIAG INJ SC/IM CPT-4: 52452 04/26/2016 THER/PROPH/DIAG INJ SC/IM CPT-4: 32960 02/09/2016 TRIAMCINOLONE ACET INJ NOS CPT-4: J3301 02/09/2016 URINALYSIS NONAUTO W/O SCOPE CPT-4: 11942 01/24/2016 URINE CULTURE/ COLONY COUNT CPT-4: 95011 01/24/2016 THER/PROPH/DIAG INJ SC/IM CPT-4: 82678 12/08/2015 TRIAMCINOLONE ACET INJ NOS CPT-4: J3301 12/08/2015 THER/PROPH/DIAG INJ SC/IM CPT-4: 38775 10/07/2015 TRIAMCINOLONE ACET INJ NOS CPT-4: J3301 10/07/2015 DESTRUCT PREMALG LESION (Cryosurgery) CPT-4: 89744 THER/PROPH/DIAG INJ SC/IM CPT-4: 67694 03/16/2015 METHYLPREDNISOLONE 40 MG INJ CPT-4: J1030 03/16/2015 DESTRUCT PREMALG LESION (Cryosurgery) CPT-4: 15203 THER/PROPH/DIAG INJ SC/IM CPT-4: 55639 09/11/2014 METHYLPREDNISOLONE 40 MG INJ CPT-4: J1030 09/11/2014 TRIAMCINOLONE ACET INJ NOS CPT-4: J3301 09/11/2014 CEFTRIAXONE SODIUM INJECTION CPT-4: J0696 09/11/2014 THER/PROPH/DIAG INJ SC/IM CPT-4: 11218 09/11/2014 ROUTINE VENIPUNCTURE CPT-4: 69455 08/27/2014 COMPREHEN METABOLIC PANEL CPT-4: 44328 08/27/2014 COMPLETE CBC W/AUTO DIFF WBC CPT-4: 04023 08/27/2014 LIPID PANEL CPT-4: 09264 08/27/2014 ROUTINE VENIPUNCTURE CPT-4: 37994 07/21/2014 ASSAY OF AMYLASE CPT-4: 40960 07/21/2014 ASSAY OF LIPASE CPT-4: 12670 07/21/2014 THER/PROPH/DIAG INJ SC/IM CPT-4: 92512 07/15/2014 TRIAMCINOLONE ACET INJ NOS CPT-4: J3301 07/15/2014 ROUTINE VENIPUNCTURE CPT-4: 43377 05/14/2014 ASSAY OF FREE THYROXINE CPT-4: 50410 05/14/2014 ASSAY THYROID STIM HORMONE CPT-4: 76759 05/14/2014 COMPREHEN METABOLIC PANEL CPT-4: 88346 05/14/2014 COMPLETE CBC W/AUTO DIFF WBC CPT-4: 44695 05/14/2014 LIPID PANEL CPT-4: 77610 05/14/2014 CEFTRIAXONE SODIUM INJECTION CPT-4: J0696 04/21/2014 THER/PROPH/DIAG INJ SC/IM CPT-4: 40731 04/21/2014 THER/PROPH/DIAG INJ SC/IM CPT-4: 52221 04/21/2014 TRIAMCINOLONE ACET INJ NOS CPT-4: J3301 04/21/2014 THER/PROPH/DIAG INJ SC/IM CPT-4: 83102 03/04/2014 METHYLPREDNISOLONE 40 MG INJ CPT-4: J1030 03/04/2014 TRIAMCINOLONE ACET INJ NOS CPT-4: J3301 03/04/2014 CEFTRIAXONE SODIUM INJECTION CPT-4: J0696 03/04/2014 THER/PROPH/DIAG INJ SC/IM CPT-4: 33703 03/04/2014 TDAP VACCINE 7 YRS/> IM CPT-4: 42690 02/27/2014 IMMUNIZATION ADMIN CPT-4: 06268 02/27/2014 DESTRUCT PREMALG LESION (Cryosurgery) CPT-4: 16897 DESTRUCT PREMALG LES 2-14 CPT-4: 54638 01/13/2014 THER/PROPH/DIAG INJ SC/IM CPT-4: 65864 10/21/2013 METHYLPREDNISOLONE 40 MG INJ CPT-4: J1030 10/21/2013 TRIAMCINOLONE ACET INJ NOS CPT-4: J3301 10/21/2013 CEFTRIAXONE SODIUM INJECTION CPT-4: J0696 08/27/2013 THER/PROPH/DIAG INJ SC/IM CPT-4: 39708 08/27/2013 THER/PROPH/DIAG INJ SC/IM CPT-4: 65218 08/27/2013 METHYLPREDNISOLONE 40 MG INJ CPT-4: J1030 08/27/2013 TRIAMCINOLONE ACET INJ NOS CPT-4: J3301 08/27/2013 THER/PROPH/DIAG INJ SC/IM CPT-4: 14115 06/23/2013 METHYLPREDNISOLONE 40 MG INJ CPT-4: J1030 06/23/2013 TRIAMCINOLONE ACET INJ NOS CPT-4: J3301 06/23/2013 THER/PROPH/DIAG INJ SC/IM CPT-4: 25511 05/26/2013 METHYLPREDNISOLONE 40 MG INJ CPT-4: J1030 05/26/2013 TRIAMCINOLONE ACET INJ NOS CPT-4: J3301 05/26/2013 ROUTINE VENIPUNCTURE CPT-4: 07756 03/05/2013 ASSAY OF FREE THYROXINE CPT-4: 57376 03/05/2013 ASSAY THYROID STIM HORMONE CPT-4: 72102 03/05/2013 COMPREHEN METABOLIC PANEL CPT-4: 77440 03/05/2013 COMPLETE CBC W/AUTO DIFF WBC CPT-4: 55285 03/05/2013 A1C GLYCOSYLATED HEMOGLOBIN TEST CPT-4: 55873 013 DRAIN/INJECT JOINT/BURSA CPT-4: 68668 12/04/2012 METHYLPREDNISOLONE 40 MG INJ CPT-4: J1030 12/04/2012 TRIAMCINOLONE ACET INJ NOS CPT-4: J3301 12/04/2012 CEFTRIAXONE SODIUM INJECTION CPT-4: J0696 11/21/2012 THER/PROPH/DIAG INJ SC/IM CPT-4: 40438 11/21/2012 THER/PROPH/DIAG INJ SC/IM CPT-4: 26324 10/14/2012 METHYLPREDNISOLONE 40 MG INJ CPT-4: J1030 10/14/2012 TRIAMCINOLONE ACET INJ NOS CPT-4: J3301 10/14/2012 URINALYSIS NONAUTO W/O SCOPE CPT-4: 49936 09/27/2012 ROUTINE VENIPUNCTURE CPT-4: 70804 09/25/2012 ASSAY OF FREE THYROXINE CPT-4: 46889 09/25/2012 ASSAY THYROID STIM HORMONE CPT-4: 08140 09/25/2012 COMPREHEN METABOLIC PANEL CPT-4: 02481 09/25/2012 COMPLETE CBC W/AUTO DIFF WBC CPT-4: 28874 09/25/2012 C-REACTIVE PROTEIN CPT-4: 63703 09/25/2012 THER/PROPH/DIAG INJ SC/IM CPT-4: 59173 08/29/2012 METHYLPREDNISOLONE 40 MG INJ CPT-4: J1030 08/29/2012 TRIAMCINOLONE ACET INJ NOS CPT-4: J3301 08/29/2012 DESTRUCT PREMALG LESION (Cryosurgery) CPT-4: 60041 THER/PROPH/DIAG INJ SC/IM CPT-4: 18338 05/06/2012 METHYLPREDNISOLONE 40 MG INJ CPT-4: J1030 05/06/2012 TRIAMCINOLONE ACET INJ NOS CPT-4: J3301 05/06/2012 VITAMIN B 12 FOLIC ACID CPT-4: 61690|61152 05/06/2012 RBC SED RATE AUTOMATED CPT-4: 95989 05/06/2012 ROUTINE VENIPUNCTURE CPT-4: 73125 05/06/2012 ASSAY OF FREE THYROXINE CPT-4: 04956 05/06/2012 ASSAY THYROID STIM HORMONE CPT-4: 69781 05/06/2012 COMPREHEN METABOLIC PANEL CPT-4: 45483 05/06/2012 COMPLETE CBC W/AUTO DIFF WBC CPT-4: 20889 05/06/2012 ASSAY OF BLOOD/URIC ACID CPT-4: 42294 05/06/2012 THER/PROPH/DIAG INJ SC/IM CPT-4: 17833 03/19/2012 KETOROLAC TROMETHAMINE INJ CPT-4: J1885 03/19/2012 KETOROLAC TROMETHAMINE INJ CPT-4: J1885 01/30/2012 THER/PROPH/DIAG INJ SC/IM CPT-4: 91266 01/30/2012 PROMETHAZINE HCL INJECTION CPT-4: J2550 01/30/2012 THER/PROPH/DIAG INJ SC/IM CPT-4: 20921 01/24/2012 METHYLPREDNISOLONE 40 MG INJ CPT-4: J1030 01/24/2012 TRIAMCINOLONE ACET INJ NOS CPT-4: J3301 01/24/2012 THER/PROPH/DIAG INJ SC/IM CPT-4: 83714 09/13/2011 KETOROLAC TROMETHAMINE INJ CPT-4: J1885 09/13/2011 THER/PROPH/DIAG INJ SC/IM CPT-4: 03655 09/13/2011 PROMETHAZINE HCL INJECTION CPT-4: J2550 09/13/2011 CEFTRIAXONE SODIUM INJECTION CPT-4: J0696 07/20/2011 THER/PROPH/DIAG INJ SC/IM CPT-4: 85262 07/20/2011 THER/PROPH/DIAG INJ SC/IM CPT-4: 93009 07/20/2011 METHYLPREDNISOLONE INJECTION CPT-4: J2930 07/20/2011 URINALYSIS NONAUTO W/O SCOPE CPT-4: 51441 05/09/2011 CEFTRIAXONE SODIUM INJECTION CPT-4: J0696 05/09/2011 THER/PROPH/DIAG INJ SC/IM CPT-4: 91960 05/09/2011 THER/PROPH/DIAG INJ SC/IM CPT-4: 70999 05/09/2011 PROMETHAZINE HCL INJECTION CPT-4: J2550 05/09/2011 HYDRATION IV INFUSION INIT CPT-4: 99406 05/09/2011 DESTRUCT PREMALG LESION (Cryosurgery) CPT-4: 66103 DESTRUCT PREMALG LES 2-14 CPT-4: 79547 07/19/2010 REMOVAL OF SKIN TAGS <W/15 CPT-4: 38416 05/30/2010 THER/PROPH/DIAG INJ SC/IM CPT-4: 19249 04/05/2010 CEFTRIAXONE SODIUM INJECTION CPT-4: J0696 04/05/2010 TRIAMCINOLONE ACET INJ NOS CPT-4: J3301 04/05/2010 METHYLPREDNISOLONE 40 MG INJ CPT-4: J1030 04/05/2010 THER/PROPH/DIAG INJ SC/IM CPT-4: 63708 04/05/2010 TRIAMCINOLONE ACET INJ NOS CPT-4: J3301 03/09/2010 METHYLPREDNISOLONE 40 MG INJ CPT-4: J1030 03/09/2010 THER/PROPH/DIAG INJ SC/IM CPT-4: 42148 03/09/2010 THER/PROPH/DIAG INJ SC/IM CPT-4: 91384 03/09/2010 CEFTRIAXONE SODIUM INJECTION CPT-4: J0696 03/09/2010 [...] 1: 132/80 Code: 8480-6 BMI: 35.8 Code: 78338-3 Heart Rate 1: 88 bpm Height: 5'4" Respiratory Rate: 20 bpm SpO2: 95% Tempera ture: 36.9 (C) / 98.5 (F) Weight: 210 lbs 05/28/2019 Blood Pressure 1: 126/82 Code: 8480-6 BMI: 35.0 Code: 35869-5 Heart Rate 1: 88 bpm Height: 5'4" [...] 1: 128/90 Code: 8480-6 BMI: 37.2 Code: 82453-1 Heart Rate 1: 84 bpm Height: 5'4" Respiratory Rate: 20 bpm SpO2: 95% Tempera ture: 36.6 (C) / 97.8 (F) Weight: 217 lbs 08/27/2018 Blood Pressure 1: 128/88 Code: 8480-6 BMI: 38.3 Code: 13698-4 Heart Rate 1: 84 bpm Height: 5'4" [...] 1: 119/72 Code: 8480-6 BMI: 37.4 Code: 24667-3 Heart Rate 1: 82 bpm Height: 5'4" Respiratory Rate: 12 bpm SpO2: 94% Tempera ture: 35.2 (C) / 95.4 (F) Weight: 218 lbs 12/18/2017 Blood Pressure 1: 128/86 Code: 8480-6 BMI: 37.8 Code: 30300-3 Heart Rate 1: 84 bpm Height: 5'4" [...] 1: 128/82 Code: 8480-6 BMI: 35.5 Code: 04503-9 Heart Rate 1: 84 bpm Height: 5'4" [...] 1: 128/82 Code: 8480-6 BMI: 30.2 Code: 33559-5 Heart Rate 1: 80 bpm Height: 5'4" [...] 1: 128/86 Code: 8480-6 BMI: 32.8 Code: 99789-9 Heart Rate 1: 66 bpm Height: 5'4" Respiratory Rate: 18 bpm Temperature: 36 .3 (C) / 97.3 (F) Weight: 191 lbs 06/23/2013 Blood Pressure 1: 132/94 Code: 8480-6 BMI: 34.0 Code: 59713-0 Heart Rate 1: 84 bpm Height: 5'4" Respiratory Rate: 20 bpm Temperature: 36 .8 (C) / 98.2 (F) Weight: 198 lbs 05/26/2013 Blood Pressure 1: 114/80 Code: 8480-6 BMI: 35.0 Code: 81665-9 Heart Rate 1: 80 bpm Height: 5'4" Respiratory Rate: 20 bpm Temperature: 36 .4 (C) / 97.6 (F) Weight: 204 lbs 04/16/2013 Blood Pressure 1: 114/82 Code: 8480-6 BMI: 36.7 Code: 91748-9 Heart Rate 1: 84 bpm Height: 5'4" Respiratory Rate: 20 bpm Temperature: 36 .7 (C) / 98.0 (F) Weight: 214 lbs 03/05/2013 Blood Pressure 1: 136/90 Code: 8480-6 BMI: 37.1 Code: 65236-2 Heart Rate 1: 84 bpm Height: 5'4" [...] 1: 168/114 Code: 8480-6 BMI: 36.2 Code: 27079-1 Heart Rate 1: 104 bpm Height: 5'4" Respiratory Rate: 20 bpm Temperature: 36 .8 (C) / 98.2 (F) Weight: 211 lbs 11/22/2012 Blood Pressure 1: 128/90 Code: 8480-6 Heart Rate 1: 88 bpm Respiratory Rate: 20 bpm SpO2: 96% Temperature: 36.8 (C) / 98.2 (F) 11/21/2012 Blood Pressure 1: 146/100 Code: 8480-6 BMI: 35.7 Code: 63244-9 Heart Rate 1: 96 bpm Height: 5'4" [...] 1: 138/100 Code: 8480-6 BMI: 35.7 Code: 76126-6 Heart Rate 1: 96 bpm Height: 5'4" Respiratory Rate: 20 bpm Temperature: 36 .8 (C) / 98.2 (F) Weight: 208 lbs 05/06/2012 Blood Pressure 1: 154/102 Code: 8480-6 BMI: 34.7 Code: 14924-4 Heart Rate 1: 116 bpm Height: 5'4" Respiratory Rate: 20 bpm Temperature: 36 .8 (C) / 98.2 (F) Weight: 202 lbs 04/03/2012 Blood Pressure 1: 134/94 Code: 8480-6 BMI: 34.8 Code: 60939-7 Heart Rate 1: 108 bpm Height: 5'4" Respiratory Rate: 20 bpm Temperature: 36 .8 (C) / 98.2 (F) Weight: 203 lbs 03/19/2012 Blood Pressure 1: 148/106 Code: 8480-6 BMI: 35.0 Code: 73875-8 Heart Rate 1: 100 bpm Height: 5'4" Respiratory Rate: 20 bpm Temperature: 36 .6 (C) / 97.9 (F) Weight: 204 lbs 02/22/2012 Blood Pressure 1: 146/94 Code: 8480-6 He art Rate 1: 88 bpm 02/21/2012 Blood Pressure 1: 172/120 Code: 8480-6 B lood Pressure 2: 152/106 Code: 8480-6 Heart Rate 1: 116 bpm 02/20/2012 Blood Pressure 1: 160/100 Code: 8480-6 BMI: 32.0 Code: 22952-9 Heart Rate 1: 84 bpm Height: 5'7" Temperature: 36.5 (C) / 97.7 (F) Weight: 204 lbs 01/30/2012 Blood Pressure 1: 152/110 Code: 8480-6 BMI: 32.0 Code: 65761-9 Heart Rate 1: 116 bpm Height: 5'7" Respiratory Rate: 20 bpm Temperature: 37 .0 (C) / 98.6 (F) Weight: 204 lbs 01/24/2012 Blood Pressure 1: 146/100 Code: 8480-6 BMI: 32.0 Code: 73239-2 Heart Rate 1: 100 bpm Height: 5'7" Respiratory Rate: 20 bpm Temperature: 36 .7 (C) / 98.0 (F) Weight: 204 lbs 01/10/2012 Blood Pressure 1: 156/94 Code: 8480-6 BMI: 32.6 Code: 05945-7 Heart Rate 1: 72 bpm Height: 5'7" Respiratory Rate: 20 bpm Temperature: 36 .8 (C) / 98.2 (F) Weight: 208 lbs 12/11/2011 Blood Pressure 1: 146/100 Code: 8480-6 Heart Rat e 1: 116 bpm Height: 5'7" Respiratory Rate: 20 bpm Temperature: 36.9 (C) / 98.4 (F) We ight: 11/09/2011 Blood Pressure 1: 148/96 Code: 8480-6 BMI: 32.1 Code: 03337-4 Heart Rate 1: 116 bpm Height: 5'7" Respiratory Rate: 20 bpm Temperature: 36 .7 (C) / 98.0 (F) Weight: 205 lbs 09/13/2011 Blood Pressure 1: 126/88 Code: 8480-6 Heart Rate 1: 88 bpm Height: 5'7" Respiratory Rate: 20 bpm Temperature: 36.9 (C) / 98.4 (F) We ight: 08/31/2011 Blood Pressure 1: 118/82 Code: 8480-6 BMI: 32.0 Code: 08551-2 Heart Rate 1: 80 bpm Height: 5'7" Temperature: 36.4 (C) / 97.6 (F) Weight: 204 lbs 07/06/2011 Blood Pressure 1: 128/86 Code: 8480-6 BMI: 30.9 Code: 68105-1 Heart Rate 1: 92 bpm Height: 5'7" Respiratory Rate: 20 bpm Temperature: 36 .9 (C) / 98.4 (F) Weight: 197 lbs 06/06/2011 Blood Pressure 1: 112/74 Code: 8480-6 BMI: 31.0 Code: 23646-7 Heart Rate 1: 72 bpm Height: 5'7" [...] 1: 128/92 Code: 8480-6 BMI: 33.6 Code: 79472-4 Heart Rate 1: 104 bpm Height: 5'4" [...] Check-up Encounters Encounter Performer Location Codes Date ([id number]) OFFICE/OUTPATIENT VISIT EST Diagnosis: Blister (nonthermal), right foot, initial encounter[ICD10: S90.821A] Diagnosis: Type 2 diabetes mellitus with hyperglycemia[ICD10: E11.65] Diagnosis: Lower extremity edema[ICD10: R60.0] Kathleen [facility]CLON [facility] CPT-4: 67308 02/12/2020 ([id number]) OFFICE/OUTPATIENT VISIT EST Diagnosis: Essential (primary) hypertension[ICD10: I10] Diagnosis: Type 2 diabetes mellitus with hyperglycemia[ICD10: E11.65] Diagnosis: Allergic rhinitis[ICD10: J30.9] María Elena Hicks [facility] CPT-4: 54512 01/13/2020 ([id number]) OFFICE/OUTPATIENT VISIT EST Diagnosis: Type 2 diabetes mellitus with hyperglycemia[ICD10: E11.65] María Elena JUARES [facility] CPT-4: 84171 11/20/2019 ([id number]) OFFICE/OUTPATIENT VISIT EST Diagnosis: Ingrowing nail[ICD10: L60.0] Diagnosis: Type 2 diabetes mellitus with hyperglycemia[ICD10: E11.65] Kathleen Nadiamike Hicks [employer] CPT-4: 63758 10/07/2019 ([id number]) OFFICE/OUTPATIENT VISIT EST Diagnosis: DM w/o complication type II, uncontrolled[ICD10: E11.65] Diagnosis: Hypertriglyceridemia[ICD10: E78.1] Diagnosis: Essential hypertension[ICD10: I10] María Elena JEAN [facility] CPT-4: 11132 09/30/2019 ([id number]) NURSE/OUTPATIENT VISIT EST Diagnosis: Essential (primary) hypertension[ICD10: I10] Diagnosis: Cervicalgia[ICD10: M54.2] Diagnosis: Hyperglycemia, unspecified[ICD10: R73.9] Diagnosis: Mixed hyperlipidemia[ICD10: E78.2] María Elena APPIAH DO [facility] CPT-4: 52747 09/29/2019 ([id number]) OFFICE/OUTPATIENT VISIT EST Diagnosis: Essential (primary) hypertension[ICD10: I10] Diagnosis: Fall from bed, sequela[ICD10: W06.XXXS] María Elena APPIAH DO [facility] CPT-4: 84069 05/28/2019 ([id number]) NURSE/OUTPATIENT VISIT EST Diagnosis: Essential (primary) hypertension[ICD10: I10] María Elena APPIAH DO [facility] CPT-4: 70930 05/19/2019 ([id number]) OFFICE/OUTPATIENT VISIT EST Diagnosis: Essential (primary) hypertension[ICD10: I10] Diagnosis: Type 2 diabetes mellitus with hyperglycemia[ICD10: E11.65] Diagnosis: Intervertebral disc disorders with radiculopathy, 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] Diagnosis: Hormone replacement therapy[ICD10: Z79.890] María Elena APPIAH [facility] CPT-4: 51199 01/22/2019 ([id number]) OFFICE/OUTPATIENT VISIT EST Diagnosis: Essential (primary) hypertension[ICD10: I10] Diagnosis: Type 2 diabetes mellitus with hyperglycemia[ICD10: E11.65] María Elena APPIAH DO [facility] CPT-4: 64989 09/30/2018 ([id number]) OFFICE/OUTPATIENT VISIT EST Diagnosis: Pain in left elbow[ICD10: M25.522] Diagnosis: Acute stress reaction[ICD10: F43.0] Diagnosis: Primary insomnia[ICD10: F51.01] Diagnosis: Abnormal weight gain[ICD10: R63.5] María Elena APPIAH [facility] CPT-4: 04367 08/27/2018 ([id number]) OFFICE/OUTPATIENT VISIT EST Diagnosis: Acute recurrent sinusitis, unspecified[ICD10: J01.91] Diagnosis: Follicular disorder, unspecified[ICD10: L73.9] Diagnosis: Tinea corporis[ICD10: B35.4] María Elena APPIAH DO [facility] CPT-4: 35853 08/09/2018 ([id number]) OFFICE/OUTPATIENT VISIT EST Diagnosis: Tinea corporis[ICD10: B35.4] Diagnosis: Anxiety disorder, unspecified[ICD10: F41.9] Diagnosis: Menopausal and female climacteric states[ICD10: N95.1] María Elena APPIAH DO [facility] CPT-4: 91057 07/22/2018 ([id number]) NURSE/OUTPATIENT VISIT EST Diagnosis: Cellulitis of right toe[ICD10: L03.031] María Elena APPIAH DO [facility] CPT-4: 19537 06/19/2018 ([id number]) OFFICE/OUTPATIENT VISIT EST Diagnosis: Cellulitis of right toe[ICD10: L03.031] Kathleen APPIAH DO [facility] CPT-4: 92736 06/17/2018 ([id number]) OFFICE/OUTPATIENT VISIT EST Diagnosis: Migraine without aura, intractable, without status migrainosus[ICD10: G43.019] Diagnosis: Zoster without complications[ICD10: B02.9] Kathleen APPIAH DO [facility] CPT-4: 19326 05/16/2018 ([id number]) OFFICE/OUTPATIENT VISIT EST Diagnosis: Cellulitis of right lower limb[ICD10: L03.115] Kathleen APPIAH DO [facility] CPT-4: 45110 03/20/2018 ([id number]) OFFICE/OUTPATIENT VISIT EST Diagnosis: Cellulitis of right lower limb[ICD10: L03.115] Kathleen APPIAH DO [facility] CPT-4: 93356 03/18/2018 ([id number]) OFFICE/OUTPATIENT VISIT EST Diagnosis: Cellulitis of right lower limb[ICD10: L03.115] Kathleen APPIAH DO [facility] CPT-4: 27492 03/15/2018 ([id number]) OFFICE/OUTPATIENT VISIT EST Diagnosis: Acute sinusitis, unspecified[ICD10: J01.90] Kathleen APPIAH DO [facility] CPT-4: 39207 02/11/2018 ([id number]) NURSE/OUTPATIENT VISIT EST Diagnosis: Otitis media, unspecified, right ear[ICD10: H66.91] María Elena APPIAH [facility] CPT-4: 76607 02/01/2018 ([id number]) OFFICE/OUTPATIENT VISIT EST Diagnosis: Acute suppurative otitis media without spontaneous rupture of ear drum, left ear[ICD10: H66.002] Diagnosis: Abnormal weight gain[ICD10: R63.5] Diagnosis: Intervertebral disc disorders with radiculopathy, 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] Kathleen APPIAH [facility] CPT-4: 99 214 01/30/2018 ([id number]) PREV VISIT EST AGE 40-64 Diagnosis: Encounter for general adult medical examination without abnormal findings[ICD10: Z00.00] Diagnosis: Essential (primary) hypertension[ICD10: I10] Diagnosis: Mixed hyperlipidemia[ICD10: E78.2] Diagnosis: Type 2 diabetes mellitus with hyperglycemia[ICD10: E11.65] Diagnosis: 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] María Elena APPIAH [facility] CPT-4: 79206 12/18/2017 ([id number]) OFFICE/OUTPATIENT VISIT EST Diagnosis: Cellulitis of right toe[ICD10: L03.031] Diagnosis: Mixed hyperlipidemia[ICD10: E78.2] Diagnosis: Essential (primary) hypertension[ICD10: I10] Diagnosis: Hyperglycemia, unspecified[ICD10: R73.9] Diagnosis: Nontoxic goiter, 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] María Elena APPIAH [facility] CPT-4: 96973 12/10/2017 ([id number]) OFFICE/OUTPATIENT VISIT EST Diagnosis: Cellulitis of right toe[ICD10: L03.031] Diagnosis: Acute sinusitis, unspecified[ICD10: J01.90] Kathleen APPIAH [facility] CPT-4: 40421 12/07/2017 OFFICE/OUTPATIENT VISIT EST Diagnosis: Acute maxillary sinusitis, unspecified[ICD10: J01.00] Kathleen ORTAER DO [facility] CPT-4: 02491 10/08/2017 ([id number]) OFFICE/OUTPATIENT VISIT EST Diagnosis: Cellulitis of left toe[ICD10: L03.032] María Elena APPIAH DO [facility] CPT-4: 50488 09/21/2017 ([id number]) OFFICE/OUTPATIENT VISIT EST Diagnosis: Insomnia, unspecified[ICD10: G47.00] Diagnosis: Major depressive disorder, single episode, unspecified[ICD10: F32.9] Diagnosis: Anxiety disorder, unspecified[ICD10: F41.9] Diagnosis: Cellulitis of left toe[ICD10: L03.032] Diagnosis: Snoring[ICD10: R06.83] Kathleen APPIAH DO [facility] CPT-4: 96856 09/20/2017 ([id number]) OFFICE/OUTPATIENT VISIT EST Diagnosis: Cellulitis of left toe[ICD10: L03.032] María Elena APPIAH [facility] CPT-4: 23243 07/19/2017 OFFICE/OUTPATIENT VISIT EST Diagnosis: Chronic sinusitis, unspecified[ICD10: J32.9] Diagnosis: Generalized hyperhidrosis[ICD10: R61] Kathleen APPIAH [facility] CPT-4: 59841 06/27/2017 ([id number]) OFFICE/OUTPATIENT VISIT EST Diagnosis: Intervertebral disc disorders with radiculopathy, 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] Diagnosis: Primary insomnia[ICD10: F51.01] Diagnosis: Other fatigue[ICD10: R53.83] María Elena APPIAH DO [facility] CPT-4: 50468 04/10/2017 ([id number]) OFFICE/OUTPATIENT VISIT EST Diagnosis: Primary insomnia[ICD10: F51.01] Diagnosis: Localized edema[ICD10: R60.0] Diagnosis: 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] María Elena APPIAH DO [facility] CPT-4: 55949 12/13/2016 ([id number]) OFFICE/OUTPATIENT VISIT EST Diagnosis: Primary insomnia[ICD10: F51.01] Diagnosis: Cyanosis[ICD10: R23.0] María Elena Bazzi [facility] CPT-4: 28336 11/01/2016 ([id number]) PREV VISIT EST AGE 40-64 Diagnosis: Encounter for gynecological examination (general) (routine) without abnormal findings[ICD10: Z01.419] Diagnosis: Encounter for routine child health examination without abnormal findings[ICD10: Z00.129] María Elena APPIAH DO [facility] CPT-4: 64329 10/17/2016 ([id number]) OFFICE/OUTPATIENT VISIT EST Diagnosis: Other seasonal allergic rhinitis[ICD10: J30.2] María Elena APPIAH DO [facility] CPT-4: 67701 10/10/2016 ([id number]) OFFICE/OUTPATIENT VISIT EST Diagnosis: Pain in left arm[ICD10: M79.602] Diagnosis: Contact with and (suspected) exposure to potentially hazardous body fluids[ICD10: Z77.21] Diagnosis: 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, 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] Diagnosis: Unspecified open wound, right foot, sequela[ICD10: S91.301S] María Elena APPIAH [facility] CPT-4: 94049 09/19/2016 ([id number]) OFFICE/OUTPATIENT VISIT EST Diagnosis: Chronic sinusitis, unspecified[ICD10: J32.9] Diagnosis: Allergic rhinitis due to pollen[ICD10: J30.1] María Elena APPIAH [facility] CPT-4: 76126 08/24/2016 ([id number]) OFFICE/OUTPATIENT VISIT EST Diagnosis: Acute bronchitis, unspecified[ICD10: J20.9] María Elena APPIAH DO [facility] CPT-4: 40365 08/16/2016 ([id number]) OFFICE/OUTPATIENT VISIT EST Diagnosis: Otitis media, unspecified, right ear[ICD10: H66.91] Diagnosis: Acute bronchitis, unspecified[ICD10: J20.9] María Elena APPIAH [facility] CPT-4: 45731 08/10/2016 ([id number]) OFFICE/OUTPATIENT VISIT EST Diagnosis: Acute recurrent sinusitis, unspecified[ICD10: J01.91] Diagnosis: Allergic rhinitis due to pollen[ICD10: J30.1] María Elena APPIAH DO [facility] CPT-4: 28021 08/02/2016 ([id number]) OFFICE/OUTPATIENT VISIT EST Diagnosis: Pain in unspecified joint[ICD10: M25.50] María Elena APPIAH DO [facility] CPT-4: 30501 07/27/2016 OFFICE/OUTPATIENT VISIT EST Diagnosis: 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] Diagnosis: Acute recurrent sinusitis, unspecified[ICD10: J01.91] Diagnosis: Other fatigue[ICD10: R53.83] Diagnosis: Primary insomnia[ICD10: F51.01] Diagnosis: Pain in unspecified joint[ICD10: M25.50] María Elena APPIAH [facility] CPT-4: 06210 07/20/2016 ([id number]) OFFICE/OUTPATIENT VISIT EST Diagnosis: Blister (nonthermal), left great toe, initial encounter[ICD10: S90.422A] Loan APPIAH DO [facility] CPT-4: 79418 ([id number]) OFFICE/OUTPATIENT VISIT EST Diagnosis: Acute recurrent sinusitis, unspecified[ICD10: J01.91] María Elena APPIAH DO [facility] CPT-4: 88334 05/25/2016 ([id number]) OFFICE/OUTPATIENT VISIT EST Diagnosis: Acute sinusitis, unspecified[ICD10: J01.90] María Elena APPIAH DO [facility] CPT-4: 37097 04/26/2016 ([id number]) OFFICE/OUTPATIENT VISIT EST Diagnosis: Flushing[ICD10: R23.2] Diagnosis: Primary insomnia[ICD10: F51.01] María Elena APPIAH DO [facility] CPT-4: 74850 03/02/2016 ([id number]) OFFICE/OUTPATIENT VISIT EST Diagnosis: Other seasonal allergic rhinitis[ICD10: J30.2] Loan APPIAH [facility] CPT-4: 39395 02/09/2016 ([id number]) OFFICE/OUTPATIENT VISIT EST Diagnosis: Primary insomnia[ICD10: F51.01] Diagnosis: Urinary tract infection, site not specified[ICD10: N39.0] María Elena APPIAH [facility] CPT-4: 73444 01/24/2016 ([id number]) OFFICE/OUTPATIENT VISIT EST Diagnosis: Other specified disorders of Eustachian tube, bilateral[ICD10: H69.83] Diagnosis: Allergic rhinitis, unspecified[ICD10: J30.9] Loan APPIAH [facility] CPT-4: 02335 12/23/2015 ([id number]) OFFICE/OUTPATIENT VISIT EST Diagnosis: Acute recurrent sinusitis, unspecified[ICD10: J01.91] Diagnosis: 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] Diagnosis: Allergic rhinitis, unspecified[ICD10: J30.9] María Elena APPIAH [facility] CPT-4: 17389 12/08/2015 ([id number]) OFFICE/OUTPATIENT VISIT EST Diagnosis: Allergic rhinitis, unspecified[ICD10: J30.9] Diagnosis: Pain in unspecified joint[ICD10: M25.50] María Elena APPIAH [facility] CPT-4: 05509 10/07/2015 ([id number]) OFFICE/OUTPATIENT VISIT EST Diagnosis: Essential (primary) hypertension[ICD10: I10] María Elena APPIAH [facility] CPT-4: 14048 10/06/2015 OFFICE/OUTPATIENT VISIT EST Diagnosis: Localized enlarged lymph nodes[ICD10: R59.0] Diagnosis: Local infection of the skin and subcutaneous tissue, unspecified[ICD10: L08.9] June Flores MARÍA ELENA APPIAH [facility] CPT- 4: 38449 09/14/2015 ([id number]) OFFICE/OUTPATIENT VISIT EST Diagnosis: Essential (primary) hypertension[ICD10: I10] Diagnosis: Actinic keratosis[ICD10: L57.0] María Elena APPIAH DO [facility] CPT-4: 78676 09/07/2015 ([id number]) OFFICE/OUTPATIENT VISIT EST Diagnosis: Essential (primary) hypertension[ICD10: I10] Diagnosis: Acute stress reaction[ICD10: F43.0] María Elena APPIAH DO [facility] CPT-4: 09895 08/18/2015 ([id number]) OFFICE/OUTPATIENT VISIT EST Diagnosis: Essential (primary) hypertension[ICD10: I10] María Elena APPIAH DO [facility] CPT-4: 41491 07/07/2015 ([id number]) OFFICE/OUTPATIENT VISIT EST Diagnosis: Essential (primary) hypertension[ICD10: I10] María Elena APPIAH DO [facility] CPT-4: 53352 06/24/2015 ([id number]) OFFICE/OUTPATIENT VISIT EST Diagnosis: Essential (primary) hypertension[ICD10: I10] María Elena APPIAH DO [facility] CPT-4: 58336 06/21/2015 ([id number]) OFFICE/OUTPATIENT VISIT EST Diagnosis: Essential (primary) hypertension[ICD10: I10] Diagnosis: Mixed hyperlipidemia[ICD10: E78.2] Diagnosis: Acute stress reaction[ICD10: F43.0] Diagnosis: Primary insomnia[ICD10: F51.01] María Elena APPIAH DO [facility] CPT-4: 15947 06/16/2015 ([id number]) OFFICE/OUTPATIENT VISIT EST Diagnosis: INSOMNIA NOS[ICD9: 780.52] Diagnosis: HYPERTENSION[ICD9: 401.9] Diagnosis: Stress reaction[ICD9: 308.9] María Elena APPIAH DO [facility] CPT-4: 74469 06/02/2015 ([id number]) OFFICE/OUTPATIENT VISIT EST Diagnosis: HYPERTENSION[ICD9: 401.9] Diagnosis: Stress reaction[ICD9: 308.9] María Elena APPIAH DO [facility] CPT-4: 53742 05/20/2015 ([id number]) OFFICE/OUTPATIENT VISIT EST Diagnosis: Skin lesion[ICD9: 709.9] 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] María Elena APPIAH [facility] CPT-4: 46559 05/10/2015 ([id number]) OFFICE/OUTPATIENT VISIT EST Diagnosis: SINUSITIS, ACUTE[ICD9: 461.9] Diagnosis: ALLERGIC RHINITIS[ICD9: 477.9] Diagnosis: DERMATITIS NOS[ICD9: 692.9] María Elena REHMAN [facility] CPT-4: 70477 03/16/2015 OFFICE/OUTPATIENT VISIT EST Diagnosis: Otitis media[ICD9: 382.9] Diagnosis: SINUSITIS, ACUTE[ICD9: 461.9] June APPIAH [facility] CPT-4: 90711 09/11/2014 ([id number]) OFFICE/OUTPATIENT VISIT EST Diagnosis: HYPERLIPIDEMIA NEC/NOS[ICD9: 272.4] María Elena APPIAH [facility] CPT-4: 41957 08/31/2014 ([id number]) OFFICE/OUTPATIENT VISIT EST Diagnosis: - I - HYPERTENSION[ICD9: 401.9] Diagnosis: HYPERLIPIDEMIA NEC/NOS[ICD9: 272.4] María Elena APPIAH [facility] CPT-4: 51690 08/27/2014 ([id number]) OFFICE/OUTPATIENT VISIT EST Diagnosis: ABDOMINAL PAIN[ICD9: 789.00] Diagnosis: DYSPEPSIA[ICD9: 536.8] Diagnosis: Thoracic back pain[ICD9: 724.1] María Elena APPIAH [facility] CPT-4: 74656 07/21/2014 ([id number]) OFFICE/OUTPATIENT VISIT EST Diagnosis: ALLERGIC RHINITIS[ICD9: 477.9] María Elena APPIAH [facility] CPT-4: 73739 07/15/2014 ([id number]) OFFICE/OUTPATIENT VISIT EST Diagnosis: EDEMA[ICD9: 782.3] Diagnosis: Chronic insomnia[ICD9: 780.52] María Elena APPIAH [facility] CPT-4: 03292 05/18/2014 ([id number]) OFFICE/OUTPATIENT VISIT EST Diagnosis: Thyromegaly[ICD9: 240.9] Diagnosis: - I - HYPERTENSION[ICD9: 401.9] Diagnosis: ROUTINE MEDICAL EXAM[ICD9: V70.0] Diagnosis: EDEMA[ICD9: 782.3] María Elena APPIAH [facility] CPT-4: 08629 05/14/2014 OFFICE/OUTPATIENT VISIT EST Diagnosis: BRONCHITIS, ACUTE[ICD9: 466.0] Diagnosis: SINUSITIS, ACUTE[ICD9: 461.9] María Elena APPIAH [facility] CPT-4: 48483 04/21/2014 OFFICE/OUTPATIENT VISIT EST Diagnosis: SINUSITIS, ACUTE[ICD9: 461.9] June VelozAlbertadaniella [facility] C[facility]: 64190 03/04/2014 ([id number]) OFFICE/OUTPATIENT VISIT EST Diagnosis: VACCINE FOR TDAP[ICD10: Z23] María Elena [facility] CPT-[facility]: 61302 02/27/2014 ([id number]) OFFICE/OUTPATIENT VISIT EST Diagnosis: Seborrheic keratoses, inflamed[ICD9: 702.11] Diagnosis: ACTINIC KERATOSIS[ICD9: 702.0] Diagnosis: INSOMNIA NOS[ICD9: 780.52] [facility] C[facility]: 43644 01/13/2014 OFFICE/OUTPATIENT VISIT EST 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] Diagnosis: ALLERGIC RHINITIS[ICD9: 477.9] Diagnosis: Serous otitis media[ICD9: 381.4] María Elena APPIAH [facility] CPT-4: 73191 12/24/2013 ([id number]) OFFICE/OUTPATIENT VISIT EST Diagnosis: SINUSITIS, ACUTE[ICD9: 461.9] Diagnosis: ALLERGIC RHINITIS[ICD9: 477.9] 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] María Elena [facility] CPT-[facility]: 71597 11/12/2013 ([id number]) OFFICE/OUTPATIENT VISIT EST Diagnosis: ALLERGIC RHINITIS[ICD9: 477.9] Diagnosis: SINUSITIS, ACUTE[ICD9: 461.9] María Elena APPIAH DO [facility] CPT-4: 24356 10/21/2013 ([id number]) OFFICE/OUTPATIENT VISIT EST Diagnosis: ASYMPTOMATIC VARICOSE VEINS[ICD9: 454.9] Diagnosis: INSOMNIA NOS[ICD9: 780.52] María Elena PANDYA [facility] CPT-4: 26237 09/22/2013 OFFICE/OUTPATIENT VISIT EST Diagnosis: SINUSITIS, ACUTE[ICD9: 461.9] June APPIAH DO [facility] CPT-4: 29048 08/27/2013 ([id number]) OFFICE/OUTPATIENT VISIT EST Diagnosis: CEPHALGIA[ICD9: 784.0] Diagnosis: CEPHALGIA, TENSION[ICD9: 307.81] 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] María Elena APPIAH [facility] CPT-4: 66786 08/04/2013 ([id number]) OFFICE/OUTPATIENT VISIT EST Diagnosis: Cervicalgia[ICD9: 723.1] Diagnosis: SPASM OF MUSCLE[ICD9: 728.85] Diagnosis: CEPHALGIA, TENSION[ICD9: 307.81] María Elena APPIAH [facility] CPT-4: 07185 07/23/2013 ([id number]) OFFICE/OUTPATIENT VISIT EST 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] Diagnosis: ALLERGIC RHINITIS[ICD9: 477.9] María Elena APPIAH DO [facility] CPT-4: 07019 06/23/2013 ([id number]) OFFICE/OUTPATIENT VISIT EST Diagnosis: ALLERGIC RHINITIS[ICD9: 477.9] Diagnosis: ACUTE SEROUS OTITIS MEDIA[ICD9: 381.01] 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] María Elena APPIAH DO [facility] CPT-4: 63289 05/26/2013 ([id number]) OFFICE/OUTPATIENT VISIT EST Diagnosis: HYPERTENSION[ICD9: 401.9] Diagnosis: EDEMA[ICD9: 782.3] Diagnosis: Serous otitis media[ICD9: 381.4] María Elena JUARES AlanJj [facility] CPT-4: 49669 04/16/2013 ([id number]) OFFICE/OUTPATIENT VISIT EST Diagnosis: SINUSITIS, ACUTE[ICD9: 461.9] Diagnosis: ALLERGIC RHINITIS[ICD9: 477.9] Diagnosis: EDEMA[ICD9: 782.3] Diagnosis: Thyromegaly[ICD9: 240.9] Diagnosis: MALAISE AND FATIGUE[ICD9: 780.79] María Elena Lopez [facility]Jj [facility] CPT-[facility]: 16144 03/05/2013 ([id number]) OFFICE/OUTPATIENT VISIT EST Diagnosis: PAIN, LOWER BACK[ICD9: 724.2] Diagnosis: SPASM OF MUSCLE[ICD9: 728.85] María Elena Hicks [facility] CPT-4: 81153 12/23/2012 OFFICE/OUTPATIENT VISIT EST Diagnosis: Low back pain[ICD9: 724.2] Lashawn Hicks [facility] CPT-4: 18372 12/16/2012 ([id number]) OFFICE/OUTPATIENT VISIT EST Diagnosis: PAIN, LOWER BACK[ICD9: 724.2] Diagnosis: SCIATICA[ICD9: 724.3] Diagnosis: Lumbar herniated disc[ICD9: 722.10] María Elena COLON AlanJj [facility] CPT-4: 46978 12/09/2012 ([id number]) OFFICE/OUTPATIENT VISIT EST Diagnosis: PAIN, LOWER BACK[ICD9: 724.2] Diagnosis: SCIATICA[ICD9: 724.3] Diagnosis: LUMBAR DISC DISPLACEMENT[ICD9: 722.10] María Elena MARIN AlanJj [facility] CPT-4: 21987 12/04/2012 OFFICE/OUTPATIENT VISIT EST Diagnosis: Pneumonia[ICD9: 486] Mary [facility] CPT-4: 89899 11/22/2012 ([id number]) OFFICE/OUTPATIENT VISIT EST Diagnosis: PNEUMONIA, ORGANISM[ICD9: 486] Diagnosis: Exacerbation of RAD (reactive airway disease)[ICD9: 493.92] María Elena Waltabbey MARÍA ELENA AlanJj [facility] CPT-4: 05352 11/21/2012 OFFICE/OUTPATIENT VISIT EST Diagnosis: HYPERTENSION[ICD9: 401.9] Diagnosis: Cephalgia[ICD9: 784.0] Lashawn Babar MARÍA ELENA AlanJj [facility] CPT-4: 49857 10/29/2012 ([id number]) OFFICE/OUTPATIENT VISIT EST Diagnosis: MALAISE AND FATIGUE[ICD9: 780.79] Diagnosis: ARTHRALGIA-MULTIPLE SITES[ICD9: 719.49] María Elenamarcella MONTERO APARNAALCIDES AlanJj [facility] CPT-4: 51137 10/14/2012 ([id number]) OFFICE/OUTPATIENT VISIT EST Diagnosis: URINARY FREQUENCY[ICD9: 788.41] María Elena Waltabbey MARÍA ELENA AlanJj [facility] CPT-4: 51876 09/27/2012 ([id number]) OFFICE/OUTPATIENT VISIT EST Diagnosis: MALAISE AND FATIGUE[ICD9: 780.79] Diagnosis: ARTHRALGIA-MULTIPLE SITES[ICD9: 719.49] María Elenaalcides Appiah KYLAH BRAUNALCIDES AlanJj [facility] CPT-4: 49139 09/25/2012 ([id number]) OFFICE/OUTPATIENT VISIT EST Diagnosis: SINUSITIS, ACUTE[ICD9: 461.9] 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] María Elenamarcella MONTEROQUELINE lAanJj [facility] CPT-4: 11633 08/29/2012 OFFICE/OUTPATIENT VISIT EST Diagnosis: ACTINIC KERATOSIS[ICD9: 702.0] Diagnosis: Inflamed seborrheic keratosis[ICD9: 702.11] Diagnosis: Skin cancer of face[ICD9: 173.31] Diagnosis: HYPERTENSION[ICD9: 401.9] María Elena JUARES AlanJj [facility] CPT-4: 34769 08/12/2012 ([id number]) OFFICE/OUTPATIENT VISIT EST Diagnosis: ARTHRALGIA-MULTIPLE SITES[ICD9: 719.49] Diagnosis: GOUT[ICD9: 274.9] Diagnosis: HYPERTENSION[ICD9: 401.9] Diagnosis: Tachycardia[ICD9: 785.0] María Elena MONTEROQUELINE AlanJj FRITZ BRADFORD [facility] CPT-4: 67322 05/06/2012 ([id number]) OFFICE/OUTPATIENT VISIT EST Diagnosis: INSOMNIA NOS[ICD9: 780.52] María Elena Wayyesivictorino MARÍA ELENA AlanJj KRISTYN PANDYA [facility] CPT-4: 68834 04/03/2012 ([id number]) OFFICE/OUTPATIENT VISIT EST Diagnosis: INSOMNIA NOS[ICD9: 780.52] Diagnosis: HYPERTENSION[ICD9: 401.9] Diagnosis: MIGRAINE NOS/NOT INTRCBL[ICD9: 346.90] María Elena Waltyesivictorino MARLIN MAIRN AlanJj WALTNDVICTORINO [facility] CPT-4: 24595 03/19/2012 ([id number]) OFFICE/OUTPATIENT VISIT EST Diagnosis: CELLULITIS[ICD9: 682.9] Diagnosis: Ankle pain[ICD9: 719.47] Diagnosis: HYPERTENSION[ICD9: 401.9] María Elena Wayabbey JUARES AlanJj WALT NDERose Mary [facility] CPT-4: 78989 02/20/2012 ([id number]) OFFICE/OUTPATIENT VISIT EST Diagnosis: MIGRAINE NOS/NOT INTRCBL[ICD9: 346.90] Diagnosis: Vomiting[ICD9: 787.03] María Elena Waltabbey JUARES AlanJj WALTYESIJohn R [facility] CPT-4: 22377 01/30/2012 ([id number]) OFFICE/OUTPATIENT VISIT EST Diagnosis: EDEMA[ICD9: 782.3] Diagnosis: HYPERTENSION[ICD9: 401.9] Diagnosis: ALLERGIC RHINITIS[ICD9: 477.9] Diagnosis: ARTHRALGIA-MULTIPLE SITES[ICD9: 719.49] María Elena Waltabbey MONTERO APARNAALCIDES AlanJj IGNACIO [facility] CPT-4: 53533 01/24/2012 ([id number]) OFFICE/OUTPATIENT VISIT EST Diagnosis: SPASM OF MUSCLE[ICD9: 728.85] Diagnosis: Thoracic back pain[ICD9: 724.1] Diagnosis: Cervical pain[ICD9: 723.1] María Elena Waltabbey JUARES AlanJj KRISTYN PANDYA [facility] CPT-4: 00793 01/10/2012 OFFICE/OUTPATIENT VISIT EST Diagnosis: PAIN, LOWER BACK[ICD9: 724.2] Diagnosis: LUMBAR DISC DISPLACEMENT[ICD9: 722.10] María Elena APPIAH [facility] CPT-4: 27682 12/11/2011 OFFICE/OUTPATIENT VISIT EST Diagnosis: MIGRAINE NOS/NOT INTRCBL[ICD9: 346.90] Diagnosis: SINUSITIS, ACUTE[ICD9: 461.9] María Elena APPIAH [facility] CPT-4: 81519 11/09/2011 OFFICE/OUTPATIENT VISIT EST Diagnosis: MIGRAINE NOS/NOT INTRCBL[ICD9: 346.90] Diagnosis: LYMPHADENOPATHY[ICD9: 785.6] María Elena APPIAH [facility] CPT-4: 11916 09/13/2011 OFFICE/OUTPATIENT VISIT EST Diagnosis: MALAISE AND FATIGUE[ICD9: 780.79] Diagnosis: ARTHRALGIA-MULTIPLE SITES[ICD9: 719.49] María Elena APPIAH [facility] CPT-4: 23701 08/31/2011 OFFICE/OUTPATIENT VISIT EST Diagnosis: SINUSITIS, ACUTE[ICD9: 461.9] María Elena APPIAH [facility] CPT-4: 96018 07/20/2011 OFFICE/OUTPATIENT VISIT EST Diagnosis: HYPERTENSION[ICD9: 401.9] Diagnosis: PAIN, LOWER BACK[ICD9: 724.2] Diagnosis: SPASM OF MUSCLE[ICD9: 728.85] María Elena APPIAH [facility] CPT-4: 89143 07/06/2011 OFFICE/OUTPATIENT VISIT EST Diagnosis: MIGRAINE NOS/NOT INTRCBL[ICD9: 346.90] Diagnosis: HYPERTENSION[ICD9: 401.9] María Elena SEYMOUR [facility] CPT-4: 84076 05/22/2011 OFFICE/OUTPATIENT VISIT EST Diagnosis: SINUSITIS, ACUTE[ICD9: 461.9] Diagnosis: MIGRAINE NOS/NOT INTRCBL[ICD9: 346.90] Diagnosis: Dehydration[ICD9: 276.51] Diagnosis: Vomiting[ICD9: 787.03] María Elena Bazzi [facility] CPT-4: 71014 05/09/2011 ([id number]) OFFICE/OUTPATIENT VISIT EST María Elena Waltnder [facility] CPT-4: 09971 02/14/2011 ([id number]) OFFICE/OUTPATIENT VISIT EST María Elena Waltnder [facility] CPT-4: 36312 02/03/2011 ([id number]) OFFICE/OUTPATIENT VISIT EST María Elenamarcella Waynder [facility] CPT-4: 07104 01/31/2011 ([id number]) OFFICE/OUTPATIENT VISIT EST María Elena Waltnder [facility] CPT-4: 80628 01/25/2011 ([id number]) OFFICE/OUTPATIENT VISIT EST María Elena Waltnder [facility] CPT-4: 42465 01/18/2011 ([id number]) OFFICE/OUTPATIENT VISIT EST María Elenamarcella Ortaer [facility] CPT-4: 90779 11/29/2010 ([id number]) OFFICE/OUTPATIENT VISIT, EST María Elenamarcella Waynder [facility] CPT-4: 92684 10/10/2010 ([id number]) OFFICE/OUTPATIENT VISIT, EST María Elenamarcella Waynder [facility] CPT-4: 69326 06/07/2010 ([id number]) OFFICE/OUTPATIENT VISIT, EST María Elena Waltnder [facility] CPT-4: 03054 04/27/2010 ([id number]) OFFICE/OUTPATIENT VISIT, EST María Elena Waltnder [facility] CPT-4: 58292 04/05/2010 ([id number]) OFFICE/OUTPATIENT VISIT, EST María Elena Waltnder [facility] CPT-4: 73477 03/09/2010 ([id number]) OFFICE/OUTPATIENT VISIT, EST María Elena Waltnder [facility] CPT-4: 59829 03/03/2010 ([id number]) OFFICE/OUTPATIENT VISIT, EST María Elenamarcella APPIAH DO [facility] CPT-4: 01892 01/17/2010 ([id number]) PREV VISIT, EST, AGE 40-64 María Elena MONTEROMICHAEL ValdesJj APPIAH DO [facility] CPT-4: 76558 12/27/2009 Plan of Care Planned Activity Notes [...] ICD-10 : S90.821A 02/12/2020 Appointment: Kathleen Zuniga [address] [place] [address] ACUTE ILLNESS 02/12/2020 Visit Diagnosis Plan: Essential [...] 01/13/2020 Appointment: María Elena Appiah WPtel: [phone] [facility] FOLLOW UP 01/13/2020 Patient Education: lisinopril- [employer] [id number] Completed 01/13/2020 Patient Education: glimepiride- [employer]on [id number] Completed 01/13/2020 Appointment[facility] Richard[facility]ictorinoMaría [facility] [phone] [facility] [facility]ED 11/26/2019 Visit Diagnosis Plan: Type 2 diabetes mellitus with hy perglycemia Discussion: Januvia 100mg daily Glimepride 2mg po BID Accuchecks BID Call in 2 weeks with BS readings Get formulary book ICD-9 : 250.02 ICD-10 : E11.65 11/20/2019 Appointment: RichardvictorinoMaría Elena [facility] [phone] [facility] [facility] 11/20/2019 Patient Education: glimepiride- [employer]on [id number] Completed 11/20/2019 Patient Education: Januvia- [employer]on [id number] Completed 11/20/2019 Visit Diagnosis Plan: Ingrowing nail [...] : E11.65 10/07/2019 Appointment: Kathleen Zuniga [address] [place], [place] [id number] 10/07/2019 Visit Diagnosis Plan: Hypertriglyceridemia [...] E11.65 09/30/2019 Appointment: María Elena Appiah WPtel: [address] [place], [place] [phone] [place] CHECK UP 09/30/2019 Patient Education: Premarin- [employer] C[employer]on [id number] https://www.[employer]/samplemd/resources/getResource/61/36076s21-b072-6pbl-t2 Completed 09/30/2019 Appointment: María Elena Appiah WPtel: [address] [place], [place] [phone] [place] LAB 09/29/2019 Appointment: María Elena Appiah WPtel: [address] [place], [place] [phone] [place] Won't have the new insurance till [...] W06.XXXS 05/28/2019 Appointment: María Elena Appiah WPtel: [address] [place] [address] [place] FOLLOW UP 05/28/2019 Appointment: María Elena Appiah WPtel: [address] [place] [address] US BP CHECK 05/19/2019 Visit Diagnosis Plan: [...] Z79.890 01/22/2019 Appointment: María Elena Appiah WPtel: [address] [place] [address] [place] FOLLOW UP 01/22/2019 Patient Education: estradiol- [employer] C[employer]on [id number] https://www.[employer]/samplemd/resources/getResource/61/676x766q-4iz2-3e47-4z Completed 01/22/2019 Appointment: María Elena Appiah WPtel: [address] [place] [address] [place] CANCELED 01/20/2019 Appointment: María Elena Appiah WPtel: [address] [place] [address] [place] LM NO SHOW 01/06/2019 Appointment: María Elena Appiah WPtel: [address] [place] [address] [place] CANCELED 10/17/2018 Appointment: María Elena Appiah WPtel: [address] [place] [address] US BP CHECK 10/09/2018 Visit Diagnosis Plan: [...] I10 09/30/2018 Appointment: María Elena Appiah WPtel: [address] [place] [address] US FOLLOW UP 09/30/2018 Visit Diagnosis Plan: [...] F51.01 08/27/2018 Appointment: María Elena Appiah WPtel: [address] [place] [address] ACUTE ILLNESS 08/27/2018 Appointment: María Elena Appiah WPtel: [address] [place] [address] [place] Patient stated she went out to [...] Tyle... 08/09/2018 Appointment: María Elena Appiah WPtel: [address] [place] [address] ACUTE ILLNESS 08/09/2018 Appointment: María Elena Appiah WPtel: [address] [place] [address] NO SHOW 08/08/2018 Visit Diagnosis Plan: Anxiety [...] B35.4 07/22/2018 Appointment: María Elena Appiah WPtel: [address] [place], [place] [phone] ACUTE ILLNESS 07/22/2018 Appointment: María Elena Appiah WPtel: [address] [place], [place] [phone] [place] INJECTION 06/19/2018 Patient Education: Patient Medication [...] ICD-10 : L03.031 06/17/2018 Appointment: Kathleen Zuniga [address] [place] [address] ACUTE ILLNESS 06/17/2018 Patient Education: Patient Medication [...] ICD-10 : B02.9 05/16/2018 Appointment: Kathleen Zuniga [address] [place], [place] [id number] ACUTE ILLNESS 05/16/2018 Patient Education: Patient Medication [...] ICD-10 : L03.115 03/20/2018 Appointment: Kathleen Zuniga [address] [place], [place] [id number] FOLLOW UP 03/20/2018 Patient Education: Patient Medication [...] ICD-10 : L03.115 03/18/2018 Appointment: Kathleen Zuniga [address] [place], [place] [id number] FOLLOW UP 03/18/2018 Patient Education: Patient Medication [...] ICD-10 : L03.115 03/15/2018 Appointment: Kathleen Zuniga [address] [place], [place] [id number] ACUTE ILLNESS 03/15/2018 Patient Education: Patient Medication [...] ICD-10 : J01.90 02/11/2018 Appointment: Kathleen Zuniga [address] [place], [place] [id number] ACUTE ILLNESS 02/11/2018 Patient Education: Patient Medication Summary Completed 02/11/2018 Appointment: María Elena Appiah WPtel: [phone] [facility] INJECTION 02/01/2018 Patient Education: Patient Medication Summary [...] ICD-10 : M51.16 01/30/2018 Appointment: Kathleen Zuniga [address] [place], [place] [id number] ACUTE ILLNESS 01/30/2018 Patient Education: Patient Medication [...] 12/18/2017 Appointment: María Elena Appiah WPtel: [phone] [facility] Annual Well Visit 12/18/2017 Patient Education: Patient Medication Summary Completed 12/18/2017 Care Plan: Referral Order SNOMED-CT : [id number] Pending 12/18/2017 Appointment: María Elena Appiah WPtel: [phone] [facility] [place] INJECTION 12/10/2017 Patient Education: Patient Medication [...] ICD-10 : L03.031 12/07/2017 Appointment: Kathleen Zuniga [address] [place] [address] ACUTE ILLNESS 12/07/2017 Patient Education: Patient Medication [...] ICD-10 : J01.00 10/08/2017 Appointment: Kathleen Zuniga [address] [place], [place] [id number] ACUTE ILLNESS 10/08/2017 Patient Education: Patient Medication Summary Completed 10/08/2017 Appointment: María Elena Appiah WPtel: [phone] [facility] [place] INJECTION 09/21/2017 Patient Education: Patient Medication [...] ICD-10 : R06.83 09/20/2017 Appointment: Kathleen Zuniga [address] [place], [place] [address]a [facility] ACUTE ILLNESS 09/20/2017 Patient Education: Patient Medication [...] ICD-10 : L60.0 08/29/2017 Appointment: Kathleen Zuniga [address] [place], [place] [address] [id number] [facility] 08/29/2017 Patient Education: Patient Medication Summary Completed 08/29/2017 Visit Diagnosis Plan: Actinic keratosis Discussion: Cr yotherapy as above ICD-9 : 702.0 ICD-10 : L57.0 08/01/2017 Appointment: María Elena Appiah WPtel: [address] [place], [place] [id number] OFFICE SURGERY 08/01/2017 Patient Education: Patient Medication Summary Completed 08/01/2017 App[facility]ment: [phone] PAT[facility] THOUGHT APPOINTMENT WAS TOMORROW 07/26/17 CALLED 15 MINUTES BEFORE APPT TO SAY SHE DIDN'T HAVE ANYONE TO COVER HER BUSINESS AND WOULD NOT MAKE IT NO SHOW 07/25/2017 Visit Diagnosis Plan: Cellulitis of left toe Discussio n: Clindamycin and notify if worsening or persistis ICD-9 : 681.10 ICD-10 : L03.032 07/19/2017 Appointment: María Elena Appiah WPtel: [address] [place], [place] [phone] MEDICATION REVIEW 07/19/2017 Patient Education: Patient Medication Summary Completed 07/19/2017 Appointment: María Elena Appiah WPtel: [address] [place], [place] [id number] CANCELED 07/04/2017 Visit Diagnosis Plan: Generalized hyperhidrosis Discus ian: CBC, CMP, TSH, free T4 ordered to assess. will review labs. ICD-9 : 780.8 ICD-10 : R61 06/27/2017 Visit Diagnosis Plan: Chronic sinusitis, unspecified D iscussion: Referral sent to dr. albar[place] in [place] per patient request. patient has been treated multiple times for sinus infections with no recovery. patient was seen by dr sanchez in the past with no interventions. patient has deviated septum which may be affecting her sinuses. 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, including hip Discussion: Shave removal of above lesio n--sent to pathology ICD-9 : 216.7 ICD-10 : D23.72 01/24/2017 Appointment: María Elena Appiah WPtel: [address] [place], [place] [phone] 01/23 confirmed ~ OFFICE SURGERY 01/24/2017 Patient Education: Patient Medication Summary Completed 01/24/2017 Appointment: Loan Sánchez [address] [place], [place] [phone] 01/09 rescheduled~sl RESCHEDULED 01/15/2017 Visit Diagnosis Plan: [...] 12/13/2016 Appointment: María Elena Appiah [facility]Ptel[phone] [facility] [place] 12/12 confirmed ~sl MEDICATION REVIEW 12/13/2016 Patient Education: Patient Medication Summary Completed 12/13/2016 Appointment: María Elena [facility]iah [facility]Ptel[phone] [facility] [place] rescheduled for 12/13/16 at 11am RESCHEDULED 0 12/06/2016 Appointment: María Elena Appiah WPtel: [phone] [facility] [place] CANCELED 11/23/2016 Patient Education: Patient [...] 11/01/2016 Appointment: María Elena Appiah WPtel[phone] [facility] [place] 10/31 lm `sl 11/01 lm`sl MEDICATION REVIEW 017 Patient Education: Patient Medication Summary Completed 11/01/2016 Referral: Canelo Overton WPtel: [phone] [id number] [place] Referral Initiated 10/30/2016 Visit Diagnosis Plan: Encounter for [facility] child health examination without abnormal findings Discussion: Lab up to date Referral for colonoscopy Follow Up: 6 months ICD-9 : V20.2 ICD-10 : Z00.129 10/17/2016 Visit Diagnosis Plan: Encounter for gyne cological examination (general) (routine) without abnormal findings Discussion: Speculum and Bimanual exam d one Mammogram ordered ICD-9 : V72.31 ICD-10 : Z01.419 10/17/2016 Appointment: María Elena Appiah WPtel: [address] [place], [place] [phone] 10/16 confirmed ~sl PAP 10/17/2016 Patient Education: Patient Medication Summary Completed 10/17/2016 Care Plan: MAMMOGRAM SCREENING LOINC : 2 6347-5 Pending 10/17/2016 Visit Diagnosis Plan: Other seasonal allergic rhinitis Discussion: Decadron/Garamycin Nasal Hope Mix Too soon for steroid Retry zyrtec 10mg daily ICD-9 : 477.9 ICD-10 : J30.2 10/10/2016 Appointment: María Elena Appiah WPtel: [address] [place], [place] [address] FOLLOW UP 10/10/2016 Patient Education: Patient Medication Summary Completed 10/10/2016 Appointment: María Elena Appiah WPtel: [address] [place], [place] [phone] 10/02 reschedule `sl RESCHEDULED 10/02/2016 Visit Plan: See surgery for removal of n ew left arm lesion and right foot lesion Lyrica to use next month for left arm paresthesias Continue current meds Discussed sunscreen/sunblock combo 09/19/2016 Appointment: María Elena Appiah WPtel: [address] [place], [place] [phone] 09/18 confirmed ~sl FOLLOW UP 09/19/2016 Patient Education: Patient Medication Summary Completed 09/19/2016 Patient Education: Patient Medication Summary Completed 09/18/2016 Care Plan: MAMMOGRAM BOTH BREASTS LOINC : 43503-7 Pending 09/18/2016 Visit Plan: Discussed that needs [...] out sinuses 08/24/2016 Appointment: María Elena Appiahtel: [address] [place] [address] ACUTE ILLNESS 08/24/2016 Patient Education: Patient Medication Summary Completed 08/24/2016 Patient Education: Patient Medication Summary Completed 08/23/2016 Care Plan: MAMMOGRAM SCREENING LOINC : 2 6347-5 Pending 08/23/2016 Visit Plan: Finish doxycycline Add Breo 100/25 1 p BID for 2 weeks If not improving within next 2 days will get CXR 08/16/2016 Appointment: María Elena Appiahtel: [address] [place] [address] ACUTE ILLNESS 08/16/2016 Patient Education: Patient Medication Summary Completed 08/16/2016 Visit Plan: Supportive care. Rest, Fluid s, Tylenol/Motrin prn fever or bodyaches. Notify if worsening symptoms. Doxycyline and Prednisone 08/10/2016 Appointment: María Elena Appiahtel: [address] [place] [address] 08/09 lm`sl....confirmed-sp FOLLOW UP 09/2015 Patient Education: Patient Medication Summary Completed 08/10/2016 Visit Plan: Saline nasal flushes prn. Ty lenol/Motrin prn headache. Notify if persists/symptoms worsening. Dexamethasone 8mg IM today May use coricedan and mucinex 08/02/2016 Appointment: María Elena Appiahtel: [address] [place] [address] ACUTE ILLNESS 08/02/2016 Patient Education: Patient Medication Summary Completed 08/02/2016 Visit Plan: Cryotherapy as above and lef t forearm lesion removal as above with 5-0 punch biopsy and sent to path Return in 10 days for suture removal 08/01/2016 Appointment: María Elena Appiah: [address] [place], [place] [id number] 07/31 confirmed`~sl OFFICE SURGERY 08/01/2016 Patient Education: Patient Medication Summary Completed 08/01/2016 Visit Plan: Stop clindamycin Check CBC, CMP, ESR now/STAT 07/27/2016 Appointment: María Elena Appiah WPtel: [address] [place], [place] [phone] AC[facility]LL[facility] 07/27/2016 Patient Education: Patient Medication Summary Completed 07/27/2016 Visit Plan: Update lab and check ABIs to start with Will likely need cardiology evaluation to rule out PVD Clindamycin for 10 days Daily yogurt or probiotic Will return for removal of left arm lesions 07/20/2016 Appointment: María Elena Appiah WPtel: [address] [place], [place] [phone] AC[facility] 07/20/2016 Patient Education: Patient Medication Summary Completed 07/20/2016 Patient Education: Patient Medication Summary Completed 07/20/2016 Care Plan: MAMMOGRAM BOTH BREASTS LOINC : 08940-1 Pending 07/20/2016 Care Plan: US EXAM CHEST LOINC : 95047-1 Pending 07/20/2016 Visit Plan: Wound culture collected from left great toe Appearance is somewhat staph like Rx as above Wound cleanser and skin care reviewed May need to add oral antibiotic if sores do not heal or continue to reoccur 07/06/2016 Appointment: Loan Sánchez [address] [place], [place] [id number] AC[facility] 07/06/2016 Patient Education: Patient Medication Summary Completed 07/06/2016 Appointment: María Elena Appiah WPtel: [address] [place], [place] [phone] [place] INJECTION 05/25/2016 Patient Education: Patient Medication Summary Completed 05/25/2016 Visit Plan: Saline nasal flushes prn. Ty lenol/Motrin prn headache. Notify if persists/symptoms worsening. Dexamethasone and Rocephin given 04/26/2016 Appointment: María Elena Appiah WPtel: [address] [place] [address] ACUTE ILLNESS 04/26/2016 Patient Education: Patient Medication Summary Completed 04/26/2016 Visit Plan: Check CBC, CMP, TSH, FreeT4, HbA1C, estradiol, lipids in AM 03/02/2016 Appointment: María Elena Appiah WPtel: [address] [place] [address] 03/01 lm~sl ACUTE ILLNESS 03/02/2016 Patient Education: Patient Medication Summary Completed 03/02/2016 Visit Plan: Exam is nearly normal Needs to be taking daily antihistamine Would prefer to use oral steroids instead of shot but patient insist that oral steroids cause horrible headaches for her Will given kenalog IM instead 02/09/2016 Appointment: Loan Sánchez [address] [place] [address] ACUTE ILLNESS 02/09/2016 Patient Education: Patient Medication Summary Completed 02/09/2016 Visit Plan: Culture urine Macrobid DC xa nax Trial of Ativan 1mg q HS 01/24/2016 Appointment: María Elena Appiah WPtel: [address] [place] [address] ACUTE ILLNESS 01/24/2016 Patient Education: Patient Medication Summary Completed 01/24/2016 Visit Plan: No steroid or rocephin injec tion warranted Can have oral prednisone Continue current home regimen Needs to follow up with Dr Sanchez if problems persist 12/23/2015 Appointment: Loan Sánchez [address] [place] [address] ACUTE ILLNESS 12/23/2015 Patient Education: Patient Medication Summary Completed 12/23/2015 Visit Plan: Saline nasal flushes prn. Ty lenol/Motrin prn headache. Notify if persists/symptoms worsening. Kenalog 40mg IM today 12/08/2015 Appointment: María Elena Appiah WPtel: [address] [place] [address] 12/06 confirmed~sl ACUTE ILLNESS 12/08/2015 Patient Education: Patient Medication Summary Completed 12/08/2015 Appointment: María Elena Appiah WPtel: [address] [place] [address] ACUTE ILLNESS 11/18/2015 Patient Education: Patient Medication Summary Completed 10/11/2015 Appointment: María Elena Appiah WPtel: [address] [place], [place] [phone] [place] INJECTION 10/07/2015 Patient Education: Patient Medication Summary Completed 10/07/2015 Visit Plan: Check renal arterial doppler s and ECHO Change amlodopine to lotrel 5/20mg q HS Will need stress test as well Check CMP, uric acid, ESR 10/06/2015 Appointment: María Elena Appiah WPtel: [address] [place] [address] ACUTE ILLNESS 10/06/2015 Patient Education: Patient Medication Summary Completed 10/06/2015 Patient Education: [facility] - Saving [employer] - Amlodipine Besylate - 18-64 - Dynamic Portal ID Completed 10/06/2015 Appointment: María Elena Appiah WPtel: [address] [place] [address] FOLLOW UP 09/22/2015 Visit Plan: Cephalexin 500 mg PO bid Mery ly topical Mupirocin to lesions on left lateral neck and face Follow-up in one week. Sooner if symptoms worsen 09/14/2015 Appointment: June Flores WPtel: [address] [place] [address] ACUTE ILLNESS 09/14/2015 Patient Education: Patient Medication Summary Completed 09/14/2015 Visit Plan: Change bystolic to bedtime d osing and amlodopine to morning dosing Cryotherapy as above to AKs 09/07/2015 Appointment: María Elena Appiah WPtel: [address] [place] [address] 09/06 appointment made and confirmed ~sl FOLLOW UP 09/07/2015 Patient Education: Patient Medication Summary Completed 09/07/2015 Visit Plan: Increase bystolic back to 20 mg daily but will split and take 10mg in AM and 10mg in PM Stress Reducers 08/18/2015 Appointment: María Elena Appiah WPtel: [address] [place], [place] [phone] 08/17/15 appt confirmed cn ACUTE ILLNESS 08/18 Patient Education: Patient Medication Summary Completed 08/18/2015 Appointment: María Elena Appiah WPtel: [address] [place] [address] BP CHECK 07/07/2015 Patient Education: Patient Medication Summary Completed 07/07/2015 Appointment: María Elena Appiah WPtel: [address] [place], [place] [id number] BP CHECK 06/24/2015 Patient Education: Patient Medication Summary Completed 06/24/2015 Appointment: María Elena Appiah WPtel: [address] [place] [address] BP CHECK 06/21/2015 Patient Education: Patient Medication Summary Completed 06/21/2015 Visit Plan: Lab discussed Continue curre nt meds and lifestyle modification Recheck lab in 6mos 06/16/2015 Appointment: María Elena Appiah WPtel: [address] [place] [address] 06/15 confirmed FOLLOW UP 06/16/2015 Patient Education: Patient Medication Summary Completed 06/16/2015 Patient Education: Patient Medication Summary Completed 06/15/2015 Visit Plan: Increase cymbalta to 60mg q HS Keep clonidine at current dose Recheck 2weeks Change xanax to klonopin 06/02/2015 Appointment: María Elena Appiah WPtel: [address] [place], [place] [phone] 06/02 lm FOLLOW UP 06/02/2015 Patient Education: Patient Medication Summary Completed 06/02/2015 Appointment: María Elena Appiah WPtel: [address] [place], [place] [phone] AC[facility] ILLNESS 05/24/2015 Visit Plan: Increase clonidine to 0.2mg q HS Add cymbalta 30mg q HS Recheck 2weeks Stress Reducers Check fasting lab Discussed sleep study 05/20/2015 Appointment: María Elena Appiah WPtel: [address] [place] [address] ACUTE ILLNESS 05/20/2015 Patient Education: Patient Medication Summary Completed 05/20/2015 Patient Education: [facility] - [employer]aving [employer] - Cymbalta - 18-64 - Dynamic Portal ID Completed 05/20/2015 Appointment: María Elena Appiah WPtel: [address] [place] [address] BP CHECK 05/19/2015 Patient Education: Patient Medication Summary Completed 05/19/2015 Visit Plan: Topical Bactroban alternatin g with topical betamethasone Recheck 2weeks 05/10/2015 Appointment: María Elena Appiah WPtel: [address] [place] [address] 05/07 vm cn...05/07 appt confirmed OFFICE SURGER Y 05/10/2015 Patient Education: Patient Medication Summary Completed 05/10/2015 Referral: [facility] Referral Initiated 05/04/2015 Visit Plan: Saline nasal flushes prn. Ty lenol/Motrin prn headache. Notify if persists/symptoms worsening. Depomedrol 40mg IM today 03/16/2015 Appointment: María Elena Appiah WPtel: [address] [place] [address] ACUTE ILLNESS 03/16/2015 Patient Education: Patient Medication Summary Completed 03/16/2015 Appointment: María Elena Appiah WPtel: [address] [place] [address] ER Follow UP 03/09/2015 Visit Plan: Cryotherapy to lesions as ab ove 10/27/2014 Appointment: María Elena Appiah WPtel: [address] [place] [address] OFFICE SURGERY 10/27/2014 Patient Education: Patient Medication Summary Completed 10/27/2014 Appointment: June Flores WPtel: [address] [place] [address] ACUTE ILLNESS 09/11/2014 Patient Education: Patient Medication Summary Completed 09/11/2014 Visit Plan: Lab discussed Lipitor 10mg d aily Coenzyme Q-10 400mg daily Vitamin D3 5000u daily Recheck lipids with LFTs in 3mos then fwup 08/31/2014 Appointment: María Elena Appiah WPtel: [address] [place] [address] 08/28 voicemail FOLLOW UP 08/31/2014 Patient Education: Patient Medication Summary Completed 08/31/2014 Appointment: María Elena Appiah WPtel: [address] [place] [address] [place] LAB 08/27/2014 Appointment: María Elena Appiah WPtel: [address] [place] [address] US LAB 08/27/2014 Patient Education: Patient Medication Summary Completed 08/27/2014 Appointment: María Elena Appiah WPtel: [address] [place] [address] ACUTE ILLNESS 07/23/2014 Appointment: María Elena Appiah WPtel: [address] [place] [address] ACUTE ILLNESS 07/21/2014 Patient Education: Patient Medication Summary Completed 07/21/2014 Visit Plan: Kenalog 40mg IM today Contin ue narendra and singulair Add Flonase 07/15/2014 Appointment: María Elena Appiah WPtel: [address] [place] [address] ACUTE ILLNESS 07/15/2014 Appointment: María Elena Appiah WPtel: [address] [place] [address] ACUTE ILLNESS 07/15/2014 Patient Education: Patient Medication Summary Completed 07/15/2014 Visit Plan: Will do metolazone 2.5mg prn with 6 potassium and see if causes as severe cramping Trial of of seroquel XR 50mg q PM with evening meal and let us know how works 05/18/2014 Appointment: María Elena Appiah WPtel: [address] [place], [place] [phone] 05/15 left message FOLLOW UP 05/18/2014 Patient Education: Patient Medication Summary Completed 05/18/2014 Appointment: María Elena Appiah WPtel: [address] [place], [place] [phone] [place] LAB 05/14/2014 Patient Education: Patient Medication Summary Completed 05/14/2014 Appointment: María Elena Appiah WPtel: [address] [place], [place] [phone] [place] INJECTION 04/22/2014 Visit Plan: Nimco today a nd finish abx given from urgent care 04/21/2014 Appointment: María Elena Appiah WPtel: [address] [place], [place] [phone] [place] INJECTION 04/21/2014 Patient Education: Patient Medication Summary Completed 04/21/2014 Appointment: June Flores WPtel: [address] [place], [place] [phone] ACUTE ILLNESS 03/04/2014 Patient Education: Patient Medication Summary Completed 03/04/2014 Appointment: María Elena Appiah WPtel: [address] [place], [place] [phone] [place] INJECTION 02/27/2014 Patient Education: Patient Medication Summary Completed 02/27/2014 Visit Plan: Cryotherapy as above to all lesions Patient wants to try no meds for insomnia for a while and see how goes 01/13/2014 Appointment: María Elena Appiah WPtel: [address] [place], [place] [phone] OFFICE SURGERY 01/13/2014 Patient Education: Patient Medication Summary Completed 01/13/2014 Visit Plan: Stop Melatonin Stop Soma Tri al of trazadone 75mg q HS See ENT for possible tubes as has had chronic ETD and serous otitis media with numerous steroids 12/24/2013 Appointment: María Elena Appiah WPtel: [address] [place] [address] ACUTE ILLNESS 12/24/2013 Patient Education: Patient Medication Summary Completed 12/24/2013 Visit Plan: Saline nasal flushes prn. Ty lenol/Motrin prn headache. Notify if persists/symptoms worsening. 11/12/2013 Appointment: María Elena Appiah WPtel: [address] [place] [address] ACUTE ILLNESS 11/12/2013 Patient Education: Patient Medication Summary Completed 11/12/2013 Appointment: María Elena Appiah WPtel: [address] [place] [address] ACUTE ILLNESS 10/21/2013 Patient Education: Patient Medication Summary Completed 10/21/2013 Visit Plan: Sleep hygiene and sleep rout ine Melatonin 10mg q HS Support stockings and observe 09/22/2013 Appointment: María Elena Appiah WPtel: [address] [place] [address] ACUTE ILLNESS 09/22/2013 Patient Education: Patient Medication Summary Completed 09/22/2013 Appointment: June Flores WPtel: [address] [place] [address] ACUTE ILLNESS 08/27/2013 Patient Education: Patient Medication Summary Completed 08/27/2013 Visit Plan: Proceed with CT scan of head /neck Proceed with occipital nerve injections Butrans 20mcg patch weekly until can get into see Dr. Mcdonough for injections 08/04/2013 Appointment: María Elena Appiah WPtel: [address] [place] [address] FOLLOW UP 08/04/2013 Patient Education: Patient Medication Summary Completed 08/04/2013 Visit Plan: OMT done Daily neck stretche s, moist heat Increase Celebrex to 200mg BID Add flexeril 07/23/2013 Appointment: María Elena Appiah WPtel: [address] [place] [address] 07/22 voicemail FOLLOW UP 07/23/2013 Patient Education: Patient Medication Summary Completed 07/23/2013 Appointment: María Elena Appiah WPtel: [address] [place] [address] ACUTE ILLNESS 06/23/2013 Patient Education: Patient Medication Summary Completed 06/23/2013 Appointment: María Elena Appiah WPtel: [address] [place] [address] ACUTE ILLNESS 05/26/2013 Patient Education: Patient Medication Summary Completed 05/26/2013 Visit Plan: Decrease clonidine to 0.1mg TID If BP remains stable consider decreasing amlodopine Prednisone for 5 days BP check in 1mo 04/16/2013 Appointment: María Elena Appiah WPtel: [address] [place] [address] 04/14 pt called and confirmed appt FOLLOW UP 04/16/2013 Patient Education: Patient Medication Summary Completed 04/16/2013 Appointment: María Elena Appiah WPtel: [address] [place] [address] ACUTE ILLNESS 03/05/2013 Patient Education: Patient Medication Summary Completed 03/05/2013 Visit Plan: Pt has MARIA ELENA on with Dr. Mcdonough Continue Butrans patch Refill Hydrocodone early tomorrow 12/23/2012 Appointment: María Elena Appiah WPtel: [address] [place] [address] FOLLOW UP 12/23/2012 Patient Education: Patient Medication Summary Completed 12/23/2012 Appointment: Lashawn Eckert WPtel: [address] [place] [address] ACUTE ILLNESS 12/16/2012 Patient Education: Patient Medication Summary Completed 12/16/2012 Visit Plan: Proceed with updated MRI of LS spine Continue gabapentin and add soma and diclofenac Will likely need to go for another epidural 12/09/2012 Appointment: María Elena Appiah WPtel: [address] [place] [address] ACUTE ILLNESS 12/09/2012 Patient Education: Patient Medication Summary Completed 12/09/2012 Visit Plan: Injection as above Finish me drol dose pack Chiropracter this afternoon 12/04/2012 Appointment: María Elena Appiah WPtel: [address] [place] [address] ACUTE ILLNESS 12/04/2012 Patient Education: Patient Medication Summary Completed 12/04/2012 Appointment: Mary Tillman WPtel: [address] [place] [address] FOLLOW UP 11/22/2012 Patient Education: Patient Medication Summary Completed 11/22/2012 Appointment: María Elena Appiah WPtel: [address] [place] [address] ACUTE ILLNESS 11/21/2012 Patient Education: Patient Medication Summary Completed 11/21/2012 Appointment: María Elena Appiah WPtel: [address] [place] [address] BP CHECK 11/07/2012 Patient Education: Patient Medication Summary Completed 11/07/2012 Visit Plan: reports extra clonidine and extra amlodipine and extra alprazalam. extra Ketolorac and promethazine last night. Bystolic 10 mg QAM and will continue all other blood pressure meds. Pt. encouraged to rest and hydrate. Discussed stroke and PR symptoms. Pt. instructed to seek ER eval if symptoms worsen or headache persists. Pt. agrees to ER eval/EMS transport if symptoms worsen. BP re-check. 10/29/2012 Appointment: Lashawn Eckert WPtel: [address] [place] [address] ACUTE ILLNESS 10/29/2012 Patient Education: Patient Medication Summary Completed 10/29/2012 Appointment: María Elena Appiah WPtel: [address] [address] [place], [place] [id number] 10/14/2012 Patient Education: Patient Medication Summary Completed 10/14/2012 Appointment: María Elena Appiah WPtel: [address] [place], [place] [id number] UA 09/27/2012 Patient Education: Patient Medication Summary Completed 09/27/2012 Appointment: María Elena Appiah WPtel: [address] [place], [place] [id number] ACUTE ILLNESS 09/25/2012 Patient Education: Patient Medication Summary Completed 09/25/2012 Appointment: María Elena Appiah WPtel: [address] [place] [address] BP CHECK 09/24/2012 Appointment: María Elena Appiah WPtel: [address] [place] [address] ACUTE ILLNESS 08/29/2012 Patient Education: Patient Medication Summary Completed 08/29/2012 Visit Plan: Cryotherapy as above See Karlos m for right 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 ACUTE ILLNESS 05/06/2012 Patient Education: Patient Medication Summary Completed 05/06/2012 Visit Plan: Pt wants to hold on any furt her sleep medications 04/03/2012 Appointment: María Elena Appiah WPtel: [address] [place] [address] FOLLOW UP 04/03/2012 Patient Education: Patient Medication Summary Completed 04/03/2012 Appointment: María Elena Appiahtel: [address] [place] [address] [place] FOLLOW UP 03/19/2012 Patient Education: Patient Medication Summary Completed 03/19/2012 Appointment: María Elena Appiahtel: [address] [place] [address] BP CHECK 02/22/2012 Patient Education: Patient Medication Summary Completed 02/22/2012 Appointment: María Elena Appiahtel: [address] [place] [address] BP CHECK 02/21/2012 Patient Education: Patient Medication Summary Completed 02/21/2012 Visit Plan: Doxycycline and bactroban fo r foot Supportive care on ankles and knees Add norvasc for BP 02/20/2012 Appointment: María Elena Appiahtel: [address] [place] [address] ER Follow UP 02/20/2012 Patient Education: Patient Medication Summary Completed 02/20/2012 Appointment: María Elena Appiahtel: [address] [place] [address] ACUTE ILLNESS 01/30/2012 Patient Education: Patient Medication Summary Completed 01/30/2012 Appointment: María Elena Appiahtel: [address] [place] [address] ACUTE ILLNESS 01/24/2012 Patient Education: Patient Medication Summary Completed 01/24/2012 Visit Plan: Daily back stretches, moist heat, Biofreeze prn OMT done 01/10/2012 Appointment: María Elena Appiahtel: [address] [place] [address] ACUTE ILLNESS 01/10/2012 Patient Education: Patient Medication Summary Completed 01/10/2012 Appointment: María Elena Appiahtel: [address] [place] [address] [place] FOLLOW UP 12/11/2011 Patient Education: Patient Medication Summary Completed 12/11/2011 Appointment: María Elena Appiahtel: [address] [place] [address] ACUTE ILLNESS 11/09/2011 Patient Education: Patient Medication Summary Completed 11/09/2011 Appointment: María Elena Appiah WPtel: [address] [place] [address] ACUTE ILLNESS 09/13/2011 Patient Education: Patient Medication Summary Completed 09/13/2011 Visit Plan: Check CBC, TSH, Free T4, CMP , ESR, Vit D, B12 now Start Prednisone today 08/31/2011 Appointment: María Elena Appiahtel: [address] [place] [address] ACUTE ILLNESS 08/31/2011 Patient Education: Patient Medication Summary Completed 08/31/2011 Appointment: María Elena Appiah WPtel: [address] [place] [address] [place] INJECTION 07/20/2011 Patient Education: Patient Medication Summary Completed 07/20/2011 Visit Plan: Continue current meds Monite r BP Cont stretches from PT 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 07/06/2011 Appointment: María Elena Appiahtel: [address] [place] [address] FOLLOW UP 07/06/2011 Patient Education: Patient Medication Summary Completed 07/06/2011 Appointment: María Elena Appiah WPtel: [address] [place] [address] [place] BP CHECK 06/06/2011 Patient Education: Patient Medication Summary Completed 06/06/2011 Visit Plan: Add Bystolic at 2.5mg QAM Ad d Robaxin 750mg 2 po q HS BP check in 2wks 05/22/2011 Appointment: María Elena Appiah WPtel: [address] [place] [address] FOLLOW UP 05/22/2011 Patient Education: Patient Medication Summary Completed 05/22/2011 Appointment: María Elena Appiah WPtel: [address] [place], [place] [id number] ER Follow UP 05/09/2011 Patient Education: Patient Medication Summary Completed 05/09/2011 Appointment: María Elena Appiah WPtel: [address] [place], [place] [id number] FOLLOW UP 02/22/2011 Visit Plan: Rx written for Hydrocodone 1 0/325mg #240 See Ortho 02/14/2011 Appointment: María Elena Appiah WPtel: [address] [place] [address] OMT 02/14/2011 Patient Education: Patient Medication Summary [...] lab work. 02/03/2011 Appointment: Lashawn Eckert WPtel: [address] [place], [place] [id number] ACUTE ILLNESS 02/03/2011 Patient Education: Patient Medication Summary Completed 02/03/2011 Visit Plan: OMT done Cont daily stretche s 01/31/2011 Appointment: María Elena Appiah WPtel: [address] [place], [place] [id number] ACUTE ILLNESS 01/31/2011 Patient Education: Patient Medication Summary Completed 01/31/2011 Visit Plan: Continue pain meds OMT done Proceed with PT No work this summer01/25/2011 Appointment: María Elena Appiahtel: [address] [place] [address] ACUTE ILLNESS 01/25/2011 Patient Education: Patient Medication Summary Completed 01/25/2011 Visit Plan: Start PT Long discussion abo ut getting pain meds from only us and can only have max of 4grams of tylenol per day Change to Hydrocodone 10/325mg 1- 2 po TID prn pain--#180 called to [facility] 01/18/2011 Appointment: María Elena Appiah WPtel: [address] [place] [address] FOLLOW UP 01/18/2011 Patient Education: Patient Medication Summary Completed 01/18/2011 Visit Plan: Daily back stretches, moist heat, Biofreeze prn 11/29/2010 Appointment: María Elena Appiahtel: [address] [place] [address] ER Follow UP 11/29/2010 Patient Education: Patient Medication Summary Completed 11/29/2010 Visit Plan: Saline nasal flushes prn. Ty lenol/Motrin prn headache. Notify if persists/symptoms worsening. Finish augmentin Add Medrol Dose Pack 10/10/2010 Appointment: María Elena Appiahtel: [address] [place], [place] [id number] AC[facility] 10/10/2010 Patient Education: Patient Medication Summary Completed 10/10/2010 Visit Plan: Cryotherapy x3 to multiple l esions on both forearms 07/19/2010 Appointment: María Elena Appiahtel: [address] [place], [place] [phone] OFFICE SURGERY 07/19/2010 Patient Education: Patient Medication Summary Completed 07/19/2010 Appointment: María Elena Appiahtel: [address] [place], [place] [id number] BP CHECK 07/06/2010 Patient Education: Patient Medication Summary Completed 07/06/2010 Appointment: María Elena Appiah: [address] [place], [place] [id number] BP CHECK 06/30/2010 Patient Education: Patient Medication Summary Completed 06/30/2010 Appointment: María Elena Appiah WPtel: [address] [place], [place] [id number] BP CHECK 06/20/2010 Patient Education: Patient Medication Summary Completed 06/20/2010 Visit Plan: Change Diovan to Exforge 160 /5mg QD OMT done to thoracics BP check in 2wks 06/07/2010 Appointment: María Elena Appiah WPtel: [address] [place] [address] FOLLOW UP 06/07/2010 Patient Education: Patient Medication Summary Completed 06/07/2010 Appointment: María Elena Appiah WPtel: [address] [place] [address] BP CHECK 06/03/2010 Patient Education: Patient Medication Summary Completed 06/03/2010 Appointment: María Elena Appiah WPtel: [address] [place] [address] BP CHECK 06/01/2010 Patient Education: Patient Medication Summary Completed 06/01/2010 Visit Plan: Irritated skin tags to left neck x2 excised at base with scissors and base cauterized 05/30/2010 Appointment: María Elena Appiah WPtel: [address] [place] [address] OFFICE SURGERY 05/30/2010 Patient Education: Patient Medication Summary Completed 05/30/2010 Visit Plan: Saline nasal flushes prn. Ty lenol/Motrin prn headache. Notify if persists/symptoms worsening. Restart Nasonex Has allergy testing set for May 25 04/27/2010 Appointment: María Elena Appiah WPtel: [address] [place], [place] [id number] ACUTE ILLNESS 04/27/2010 Patient Education: Patient Medication Summary Completed 04/27/2010 Visit Plan: Saline nasal flushes prn. Ty lenol/Motrin prn headache. Notify if persists/symptoms worsening. Omnaris BID plus injections 04/05/2010 Appointment: María Elena Appiah WPtel: [address] [place] [address] ACUTE ILLNESS 04/05/2010 Patient Education: Patient Medication Summary Completed 04/05/2010 Visit Plan: Saline nasal flushes prn. Ty lenol/Motrin prn headache. Notify if persists/symptoms worsening. 03/09/2010 Appointment: María Elena Appiah WPtel: [address] [place] [address] ACUTE ILLNESS 03/09/2010 Patient Education: Patient Medication Summary Completed 03/09/2010 Visit Plan: Cont Clonidine as is Cont Pr emarin Fwup with surgery as scheduled 03/03/2010 Appointment: María Elena Appiahtel: [address] [place] [address] FOLLOW UP 03/03/2010 Patient Education: Patient Medication Summary Completed 03/03/2010 Visit Plan: Check Pelvic US now Dukee tacho Sal C vs Hysterectomy 01/17/2010 Appointment: María Elena Appiah WPtel: [address] [place] [address] ACUTE ILLNESS 01/17/2010 Patient Education: Patient Medication Summary Completed 01/17/2010 Visit Plan: Check fasting lab and schedu le Mammogram 2gm Na Diet Trial of Ambien 10mg qhs Fwup pending lab results 12/27/2009 Appointment: María Elena Appiah WPtel: [address] [place] [address] [place] ESTABLISHED PATIENT 12/27/2009 Patient Education: Patient Medication Summary Completed 12/27/2009 Referral: Canelo Overton WPtel: [phone] [place] [id number] Referral Initiated Referral: Philipp Flores WPtel: [address] [id number] [place] Referral Appointment Requested Instructions Comment . [...] to rest and hydrate. Discussed stroke and PR symptoms. Pt. instructed to seek ER eval [...] 240 See Ortho . will refer to [facility] for epidural ster oid injection. Pt. wants [...]
--- OUTSIDE RECORDS SUMMARY | 2020-03-13 04:19 | XMS REPORT | CCD ---
Author Author Gale Appiah D.O. 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 Name Role Phone María Elena Appiah D.O., PP Unavailable CCM Unavailable Summary Purpose Interface Exchange Insurance Providers Payer name Policy type / Coverage type Covered democrat ID Effective Begin Date Effective End Date [facility] Commercial Insurance [id number] Unknown Family History Family History data not found Social History Social History Element Codes Description Effective Dates Tobacco history SNOMED CT: [id number] Never smoker 05/22/2011 Allergies, Adverse Reactions, Alerts [...] Start Date Stop Date Status Fill Instructions celecoxib 200 mg capsule RxNorm: 773611 1 Capsule(s) Or al two times a day as needed for pain 02/16/2020 05/15/2020 Active Farxiga 10 mg tablet RxNorm: 1916835 1 Tablet(s) Oral QAM 02/13/2020 05/13/2020 Active Farxiga 10 mg tablet RxNorm: 2768799 1 Tablet(s) Oral QAM 02/13/2020 02/12/2020 Inactive Keflex 500 mg capsule RxNorm: 053735 1 Capsule(s) Oral two time s a day 02/12/2020 02/19/2020 Active Lipitor 10 mg tablet RxNorm: 219678 TAKE ONE TABLET BY MOUTH DAILY 01/23/2020 No Stop Date Active Januvia 100 mg tablet RxNorm: 735631 TAKE ONE TABLET BY MOUTH DAILY 01/22/2020 No Stop Date Active gabapentin 300 mg capsule RxNorm: 588875 TAKE ONE CAPSU LE BY MOUTH EVERY NIGHT AT BEDTIME 01/22/2020 No Stop Date Active allopurinol 300 mg tablet RxNorm: 777266 TAKE ONE TABLET BY LOPEZ TH DAILY 01/22/2020 No Stop Date Active Klor-Con 8 mEq tablet,extended release RxNorm: 300709 T FARRUKH ONE TABLET BY MOUTH TWICE A DAY 01/22/2020 No Stop Date Active doxepin 25 mg capsule RxNorm: 8906776 TAKE ONE CAPSULE B Y MOUTH EVERY NIGHT AT BEDTIME NEEDED FOR SLEEP 01/22/2020 No Stop Date Active glimepiride 4 mg tablet RxNorm: 386656 1 Tablet(s) Oral two times a day replaces 2mg dose 01/13/2020 04/12/2020 Active lisinopril 40 mg tablet RxNorm: 523646 1 Tablet(s) Oral QD repl aces 20mg dose 01/13/2020 04/12/2020 Active hydrocodone 10 mg-acetaminophen 325 mg tablet RxNorm: 456437 1-2 Tablet(s) Oral three times a day as needed for pain 01/12/2020 No Stop Date Active cyclobenzaprine 10 mg tablet RxNorm: 335135 TAKE ONE TA BLET BY MOUTH THREE TIMES A DAY NEEDED FOR MUSCLE SPASMS 01/05/2020 No Stop Date Active triamterene 75 mg-hydrochlorothiazide 50 mg tablet RxNorm: 3 63224 TAKE ONE TABLET BY MOUTH DAILY 12/29/2019 No Stop Date Active Klor-Con 8 mEq tablet,extended release RxNorm: 283371 T FARRUKH ONE TABLET BY MOUTH TWICE A DAY 12/19/2019 01/21/2020 Inactive allopurinol 300 mg tablet RxNorm: 154429 TAKE ONE TABLET BY LOPEZ TH DAILY 12/19/2019 01/21/2020 Inactive glimepiride 2 mg tablet RxNorm: 732046 TAKE ONE TABLET BY MOUTH TWICE A DAY 12/19/2019 01/12/2020 Inactive hydrocodone 10 mg-acetaminophen 325 mg tablet RxNorm: 673706 1-2 Tablet(s) Oral three times a day as needed for pain 12/10/2019 01/11/2020 Inactive Januvia 100 mg tablet RxNorm: 347879 1 Tablet(s) Oral QD 11/20/2019 0 11/20/2019 Inactive glimepiride 2 mg tablet RxNorm: 416614 1 Tablet(s) Oral two saweyr es a day 11/20/2019 12/18/2019 Inactive cyclobenzaprine 10 mg tablet RxNorm: 525691 TAKE ONE TA BLET BY MOUTH THREE TIMES A DAY NEEDED FOR MUSCLE SPASMS 11/17/2019 01/04/2020 Inactive doxepin 25 mg capsule RxNorm: 7323479 TAKE ONE CAPSULE B Y MOUTH EVERY NIGHT AT BEDTIME NEEDED FOR SLEEP 11/16/2019 01/21/2020 Inactive Klor-Con 8 mEq tablet,extended release RxNorm: 437396 T FARRUKH ONE TABLET BY MOUTH TWICE A DAY 11/16/2019 12/18/2019 Inactive hydrocodone 10 mg-acetaminophen 325 mg tablet RxNorm: 207644 1-2 Tablet(s) Oral three times a day as needed for pain 11/10/2019 12/09/2019 Inactive cyclobenzaprine 10 mg tablet RxNorm: 575117 TAKE ONE TA BLET BY MOUTH THREE TIMES A DAY NEEDED FOR MUSCLE SPASMS 10/23/2019 11/16/2019 Inactive duloxetine 60 mg capsule,delayed release RxNorm: 597601 1 Capsu le(s) Oral QD 10/17/2019 04/13/2020 Active Singulair 10 mg tablet RxNorm: 548874 1 Tablet(s) Oral QD 10/17/2019 04/14/2020 Active metoprolol tartrate 100 mg tablet RxNorm: 693181 1 Tabl et(s) Oral two times a day 10/17/2019 04/13/2020 Active clonidine HCl 0.1 mg tablet RxNorm: 699347 1 Tablet(s) Oral fou r times a day 10/17/2019 04/13/2020 Active celecoxib 200 mg capsule RxNorm: 393355 1 Capsule(s) Or al two times a day as needed for pain 10/17/2019 02/15/2020 Inactive lisinopril 20 mg tablet RxNorm: 302810 1 Tablet(s) Oral QD 10/17/19 20 01/12/2020 Inactive gabapentin 300 mg capsule RxNorm: 532036 1 Capsule(s) O ral every night at bedtime 10/17/2019 01/15/2020 Inactive Klor-Con 8 mEq tablet,extended release RxNorm: 571893 1 Tablet(s) Oral two times a day 10/17/2019 11/15/2019 Inactive Januvia 100 mg tablet RxNorm: 681094 1 Tablet(s) Oral QD 10/17/2019 0 01/12/2020 Inactive Lipitor 10 mg tablet RxNorm: 114045 1 Tablet(s) Oral QD 10/17/2019 Inactive Steglatro 15 mg tablet RxNorm: 6357642 1 Tablet(s) Oral QD 10/17/19 20 02/12/2020 Inactive Glyxambi 25 mg-5 mg tablet RxNorm: 1139895 1 Tablet(s) Oral QD 01/202010/16/2019 Inactive Patient will bring in copay discount card as well Glyxambi 25 mg-5 mg tablet RxNorm: 5192447 1 Tablet(s) Oral QD 01/202010/14/2019 Inactive Patient will bring in copay discount card as well Keflex 500 mg capsule RxNorm: 831250 1 Capsule(s) Oral two time s a day 10/07/2019 10/14/2019 Inactive Premarin 1.25 mg tablet RxNorm: 350469 1 Tablet(s) Oral QD 09/30/1906/25/2020 Active hydrocodone 10 mg-acetaminophen 325 mg tablet RxNorm: 208155 1-2 Tablet(s) Oral three times a day as needed for pain 09/30/2019 09/30/2019 Inactive baclofen 10 mg tablet RxNorm: 089344 TAKE ONE TABLET BY MOUTH THREE TIMES A DAY NEEDED 09/19/2019 No Stop Date Active gabapentin 300 mg capsule RxNorm: 075517 TAKE ONE CAPSU LE BY MOUTH EVERY NIGHT AT BEDTIME 09/19/2019 10/16/2019 Inactive Klor-Con 8 mEq tablet,extended release RxNorm: 373145 T FARRUKH ONE TABLET BY MOUTH TWICE A DAY 1 Tablet(s) Oral two times a day 09/19/2019 10/16/2019 Renu ctive hydrocodone 10 mg-acetaminophen 325 mg tablet RxNorm: 232669 1-2 Tablet(s) Oral three times a day as needed for pain 09/19/2019 09/29/2019 Inactive duloxetine 60 mg capsule,delayed release RxNorm: 685760 TAKE ONE CAPSULE BY MOUTH DAILY 09/11/2019 10/16/2019 Inactive Lipitor 10 mg tablet RxNorm: 340539 TAKE ONE TABLET BY MOUTH AT BEDTIME 09/11/2019 10/16/2019 Inactive lisinopril 20 mg tablet RxNorm: 159666 TAKE ONE TABLET BY MOUTH DAILY .... THIS REPLACE 10MG TABLETS 09/11/2019 10/16/2019 Inactive triamterene 75 mg-hydrochlorothiazide 50 mg tablet RxNorm: 3 46744 TAKE ONE TABLET BY MOUTH DAILY 09/11/2019 12/28/2019 Inactive allopurinol 300 mg tablet RxNorm: 060316 TAKE ONE TABLET BY LOPEZ TH DAILY 09/11/2019 12/18/2019 Inactive celecoxib 200 mg capsule RxNorm: 125076 TAKE ONE CAPSUL E BY MOUTH TWICE A DAY NEEDED FOR PAIN 09/11/2019 10/16/2019 Inactive clonidine HCl 0.1 mg tablet RxNorm: 796780 TAKE ONE TAB LET BY MOUTH FOUR TIMES A DAY 09/11/2019 10/16/2019 Inactive doxepin 25 mg capsule RxNorm: 5564409 1 Capsule(s) Oral every night at bedtime as needed for sleep 08/21/2019 11/15/2019 Inactive hydrocodone 10 mg-acetaminophen 325 mg tablet RxNorm: 107952 1-2 Tablet(s) PO TID 08/12/2019 09/29/2019 Inactive as needed for pa in - Previous quantity #240, will start dosing for #180 in April 2011 per Doctor Td. Medrol (Dustin) 4 mg tablets in a dose pack RxNorm: 632675 Tablet(s) Oral As Directed 07/21/2019 09/29/2019 Inactive Premarin 1.25 mg tablet RxNorm: 946784 1 Tablet(s) Oral QD 07/02/2009/29/2019 Inactive hydrocodone 10 mg-acetaminophen 325 mg tablet RxNorm: 664125 1-2 Tablet(s) PO TID 07/01/2019 08/11/2019 Inactive as needed for pa in - Previous quantity #240, will start dosing for #180 in April 2011 per Doctor Td. gabapentin 300 mg capsule RxNorm: 919869 1 Capsule(s) PO QHS 201809/18/2019 Inactive celecoxib 200 mg capsule RxNorm: 144311 1 Capsule(s) Or al two times a day as needed for pain 06/27/2019 06/27/2019 Inactive doxepin 25 mg capsule RxNorm: 9745532 TAKE ONE CAPSULE B Y MOUTH EVERY NIGHT AT BEDTIME NEEDED FOR SLEEP 06/24/2019 08/20/2019 Inactive Singulair 10 mg tablet RxNorm: 782558 TAKE ONE TABLET BY MOUTH JOSÉ Y 06/24/2019 10/16/2019 Inactive furosemide 40 mg tablet RxNorm: 295442 TAKE ONE TABLET BY MOUTH EVERY MORNING NEEDED FOR EDEMA . TAKE WITH POTASSIUM 06/24/2019 01/12/2020 Inactive lisinopril 20 mg tablet RxNorm: 109409 TAKE ONE TABLET BY MOUTH DAILY .... THIS REPLACE 10MG TABLETS 06/24/2019 09/10/2019 Inactive nystatin-triamcinolone 100,000 unit/g-0.1 % topical cream Rx Norm: 1491730 1 Application Topical two times a day 06/12/2019 06/19/2019 Inactive apply BID for 1 week nystatin-triamcinolone 100,000 unit/g-0.1 % topical cream Rx Norm: 6909201 1 Application Topical two times a day 06/12/2019 06/11/2019 Inactive apply BID for 1 week hydrocodone 10 mg-acetaminophen 325 mg tablet RxNorm: 297792 1-2 Tablet(s) PO QID as needed for pain MUST LAST 30 DAYS 05/28/2019 06/26/2019 Inactiv e (Response to an electronic controlled substance refill request - RxReferenceNumber: [id number]) baclofen 20 mg tablet RxNorm: 999870 1 Tablet(s) PO TID as needed for muscle spasm 05/19/2019 05/27/2019 Inactive gabapentin 300 mg capsule RxNorm: 781426 1 Capsule(s) PO QHS 201805/27/2019 Inactive lisinopril 20 mg tablet RxNorm: 383151 1 Tablet(s) PO Q D TAKE ONE TABLET BY MOUTH DAILY, REPLACES 10 MG DOSE 05/19/2019 06/23/2019 Inactive doxepin 25 mg capsule RxNorm: 5850860 TAKE ONE CAPSULE B Y MOUTH EVERY NIGHT AT BEDTIME NEEDED FOR SLEEP 05/16/2019 06/14/2019 Inactive lisinopril 20 mg tablet RxNorm: 524223 TAKE ONE TABLET BY MOUTH DAILY, REPLACES 10 MG DOSE 05/16/2019 05/18/2019 Inactive Singulair 10 mg tablet RxNorm: 946815 TAKE ONE TABLET BY MOUTH JOSÉ Y 05/16/2019 06/14/2019 Inactive gabapentin 300 mg capsule RxNorm: 735288 1 Capsule(s) PO QHS 201805/04/2019 Inactive estropipate 1.5 mg tablet RxNorm: 453411 1 Tablet(s) PO QD 05/05/20 19 05/27/2019 Inactive estropipate 1.5 mg tablet RxNorm: 933129 1 Tablet(s) PO QD 05/05/20 19 05/04/2019 Inactive gabapentin 300 mg capsule RxNorm: 643119 1 Capsule(s) PO QHS 201805/18/2019 Inactive hydrocodone 10 mg-acetaminophen 325 mg tablet RxNorm: 094857 1-2 Tablet(s) PO QID as needed for pain MUST LAST 30 DAYS 04/25/2019 05/24/2019 Inactiv e (Response to an electronic controlled substance refill request - RxReferenceNumber: [id number]) cyclobenzaprine 10 mg tablet RxNorm: 753428 TAKE ONE TA BLET BY MOUTH THREE TIMES A DAY NEEDED FOR MUSCLE SPASMS 04/24/2019 05/18/2019 Inactive metoprolol tartrate 100 mg tablet RxNorm: 560496 TAKE O NE TABLET BY MOUTH TWICE A DAY 04/24/2019 10/16/2019 Inactive Lyrica 75 mg capsule RxNorm: 486730 1 Capsule(s) PO QHS 03/25/2019 Inactive duloxetine 60 mg capsule,delayed release RxNorm: 888828 TAKE ONE CAPSULE BY MOUTH DAILY 03/21/2019 05/19/2019 Inactive triamterene 75 mg-hydrochlorothiazide 50 mg tablet RxNorm: 3 89772 TAKE ONE TABLET BY MOUTH DAILY 03/21/2019 05/19/2019 Inactive Klor-Con 8 mEq tablet,extended release RxNorm: 106488 T FARRUKH ONE TABLET BY MOUTH TWICE A DAY 03/21/2019 09/18/2019 Inactive Lipitor 10 mg tablet RxNorm: 828703 TAKE ONE TABLET BY MOUTH AT BEDTIME 03/21/2019 09/10/2019 Inactive clonidine HCl 0.1 mg tablet RxNorm: 201832 TAKE ONE TAB LET BY MOUTH FOUR TIMES A DAY 03/21/2019 05/19/2019 Inactive allopurinol 300 mg tablet RxNorm: 152002 TAKE ONE TABLET BY LOPEZ TH DAILY 03/21/2019 05/19/2019 Inactive hydrocodone 10 mg-acetaminophen 325 mg tablet RxNorm: 690515 1-2 Tablet(s) PO QID as needed for pain MUST LAST 30 DAYS 02/28/2019 03/29/2019 Inactiv e (Response to an electronic controlled substance refill request - RxReferenceNumber: [id number]) furosemide 40 mg tablet RxNorm: 270718 TAKE ONE TABLET BY MOUTH EVERY MORNING NEEDED FOR EDEMA . TAKE WITH POTASSIUM 02/21/2019 03/22/2019 Inactive cyclobenzaprine 10 mg tablet RxNorm: 501817 TAKE ONE TA BLET BY MOUTH THREE TIMES A DAY NEEDED FOR MUSCLE SPASMS 02/21/2019 04/21/2019 Inactive lisinopril 20 mg tablet RxNorm: 827193 TAKE ONE TABLET BY MOUTH DAILY, REPLACES 10 MG DOSE 02/21/2019 05/15/2019 Inactive doxepin 25 mg capsule RxNorm: 7489569 TAKE ONE CAPSULE B Y MOUTH EVERY NIGHT AT BEDTIME NEEDED FOR SLEEP 02/21/2019 05/15/2019 Inactive nystatin 100,000 unit/gram topical cream RxNorm: 346442 APPLY TO AFFECTED AREA(S) TWO TIMES A DAY 02/21/2019 03/22/2019 Inactive estradiol 1 mg tablet RxNorm: 565134 2 Tablet(s) PO QD replaces premarin 01/22/2019 05/04/2019 Inactive lisinopril 20 mg tablet RxNorm: 473778 TAKE ONE TABLET BY MOUTH DAILY, REPLACES 10 MG DOSE 01/20/2019 02/18/2019 Inactive cyclobenzaprine 10 mg tablet RxNorm: 059877 TAKE ONE TA BLET BY MOUTH THREE TIMES A DAY NEEDED FOR MUSCLE SPASMS 01/20/2019 02/18/2019 Inactive metoprolol tartrate 100 mg tablet RxNorm: 794991 TAKE O NE TABLET BY MOUTH TWICE A DAY 01/20/2019 02/18/2019 Inactive cyclobenzaprine 10 mg tablet RxNorm: 737041 TAKE ONE TA BLET BY MOUTH THREE TIMES A DAY NEEDED FOR MUSCLE SPASMS 12/19/2018 01/17/2019 Inactive lisinopril 20 mg tablet RxNorm: 235173 TAKE ONE TABLET BY MOUTH DAILY, REPLACES 10 MG DOSE 12/19/2018 01/17/2019 Inactive duloxetine 60 mg capsule,delayed release RxNorm: 995713 TAKE ONE CAPSULE BY MOUTH DAILY 12/19/2018 01/17/2019 Inactive Lipitor 10 mg tablet RxNorm: 565938 TAKE ONE TABLET BY MOUTH AT BEDTIME 12/19/2018 01/17/2019 Inactive cyclobenzaprine 10 mg tablet RxNorm: 654025 1 Tablet(s) PO TID as needed for muscle spasm 11/19/2018 12/18/2018 Inactive Singulair 10 mg tablet RxNorm: 836422 1 Tablet(s) PO QD 11/19/2018 Inactive lisinopril 20 mg tablet RxNorm: 538724 TAKE ONE TABLET BY MOUTH DAILY, REPLACES 10 MG DOSE 11/15/2018 12/18/2018 Inactive hydrocodone 10 mg-acetaminophen 325 mg tablet RxNorm: 820683 1-2 Tablet(s) PO QID as needed for pain MUST LAST 30 DAYS 11/13/2018 12/12/2018 Inactiv e (Response to an electronic controlled substance refill request - RxReferenceNumber: [id number]) nystatin 100,000 unit/gram topical cream RxNorm: 707985 APPLY TO AFFECTED AREA(S) TWO TIMES A DAY 10/23/2018 11/06/2018 Inactive lisinopril 20 mg tablet RxNorm: 682618 1 Tablet(s) PO QD replac es 10mg dose 10/18/2018 11/14/2018 Inactive hydrocodone 10 mg-acetaminophen 325 mg tablet RxNorm: 602012 1-2 Tablet(s) QID as needed for pain MUST LAST 30 DAYS 10/08/2018 11/06/2018 Inactive (Response to an electronic controlled substance refill request - RxReferenceNumber: [id number]) lisinopril 10 mg tablet RxNorm: 926014 1 Tablet(s) PO QD 10/03/2018 0 01/21/2019 Inactive Celebrex 200 mg capsule RxNorm: 049866 TAKE ONE CAPSULE BY MOUT H TWICE A DAY 09/30/2018 05/04/2019 Inactive cyclobenzaprine 10 mg tablet RxNorm: 580246 TAKE ONE TA BLET BY MOUTH THREE TIMES A DAY NEEDED FOR MUSCLE SPASMS 09/30/2018 11/18/2018 Inactive doxepin 25 mg capsule RxNorm: 4995924 TAKE ONE CAPSULE B Y MOUTH EVERY NIGHT AT BEDTIME NEEDED 09/05/2018 10/16/2018 Inactive omeprazole 40 mg capsule,delayed release RxNorm: 272909 TAKE ONE CAPSULE BY MOUTH DAILY 09/05/2018 01/21/2019 Inactive furosemide 40 mg tablet RxNorm: 972275 TAKE ONE TABLET BY MOUTH EVERY MORNING NEEDED FOR EDEMA . TAKE WITH POTASSIUM 09/05/2018 11/03/2018 Inactive phentermine 37.5 mg tablet RxNorm: 025173 1 Tablet(s) PO QAM 201701/21/2019 Inactive doxepin 25 mg capsule RxNorm: 7702707 1 Capsule(s) PO QH S as needed for sleep TAKE ONE CAPSULE BY MOUTH EVERY NIGHT AT BEDTIME NEEDED 08/27/2018 09/04/2018 Inactive Keflex 500 mg capsule RxNorm: 130845 1 Capsule(s) PO TID 08/09/2018 1 10/19/2017 Inactive Diflucan 100 mg tablet RxNorm: 031884 1 Tablet(s) PO QD 08/09/2018 Inactive Premarin 1.25 mg tablet RxNorm: 516752 2 Tablet(s) PO QD 08/09/2018 0 05/04/2019 Inactive Zofran ODT 4 mg disintegrating tablet RxNorm: 867614 1 Tablet(s) PO Q4H as needed for nausea 08/09/2018 01/21/2019 Inactive metoprolol tartrate 100 mg tablet RxNorm: 543554 TAKE O NE TABLET BY MOUTH TWICE A DAY 2018 10/04/2018 Inactive doxepin 25 mg capsule RxNorm: 4049344 TAKE ONE CAPSULE B Y MOUTH EVERY NIGHT AT BEDTIME NEEDED 2018 08/26/2018 Inactive cyclobenzaprine 10 mg tablet RxNorm: 494957 TAKE ONE TA BLET BY MOUTH THREE TIMES A DAY NEEDED FOR MUSCLE SPASMS 2018 09/29/2018 Inactive hydrocodone 10 mg-acetaminophen 325 mg tablet RxNorm: 035058 1-2 Tablet(s) QID as needed for pain MUST LAST 30 DAYS 07/29/2018 08/27/2018 Inactive (Response to an electronic controlled substance refill request - RxReferenceNumber: [id number]) nystatin 100,000 unit/gram topical powder RxNorm: 921631 Applic ation TOP BID 07/22/2018 08/04/2018 Inactive doxepin 25 mg capsule RxNorm: 1647623 1 Capsule(s) PO QHS as needed 07/22/2018 08/05/2018 Inactive triamterene 75 mg-hydrochlorothiazide 50 mg tablet RxNorm: 3 67246 TAKE ONE TABLET BY MOUTH DAILY 07/05/2018 10/02/2018 Inactive duloxetine 60 mg capsule,delayed release RxNorm: 979759 TAKE ONE CAPSULE BY MOUTH DAILY 07/05/2018 09/02/2018 Inactive Klor-Con 8 mEq tablet,extended release RxNorm: 418004 T FARRUKH ONE TABLET BY MOUTH TWICE A DAY 07/05/2018 10/02/2018 Inactive Lipitor 10 mg tablet RxNorm: 466158 TAKE ONE TABLET BY MOUTH AT BEDTIME 07/05/2018 09/02/2018 Inactive allopurinol 300 mg tablet RxNorm: 968429 TAKE ONE TABLET BY LOPEZ TH DAILY 07/05/2018 10/02/2018 Inactive clonidine HCl 0.1 mg tablet RxNorm: 504097 TAKE ONE TAB LET BY MOUTH FOUR TIMES A DAY 07/05/2018 10/02/2018 Inactive hydrocodone 10 mg-acetaminophen 325 mg tablet RxNorm: 305812 1-2 Tablet(s) QID as needed for pain MUST LAST 30 DAYS 06/28/2018 07/27/2018 Inactive (Response to an electronic controlled substance refill request - RxReferenceNumber: [id number]) MediHoney (calcium alginate-honey) 4" X 5" bandage RxNorm: 1 Application TOP QD 06/17/2018 06/26/2018 Inactive honey-hydrocolloid dressing 4" X 5" RxNorm: 1 Application TOP QD 06/17/2018 07/16/2018 Inactive furosemide 40 mg tablet RxNorm: 703580 TAKE ONE TABLET BY MOUTH EVERY MORNING NEEDED FOR EDEMA . TAKE WITH POTASSIUM 06/10/2018 07/09/2018 Inactive This is a refill request. hydrocodone 10 mg-acetaminophen 325 mg tablet RxNorm: 755596 1-2 Tablet(s) QID as needed for pain MUST LAST 30 DAYS 05/30/2018 06/27/2018 Inactive (Response to an electronic controlled substance refill request - RxReferenceNumber: [id number]) acyclovir 800 mg tablet RxNorm: 906045 1 Tablet(s) PO 5x day 201705/22/2018 Inactive Premarin 1.25 mg tablet RxNorm: 648640 1-2 Tablet(s) PO QD 05/15/20 18 07/13/2018 Inactive cyclobenzaprine 10 mg tablet RxNorm: 384866 1 Tablet(s) PO TID as needed for muscle spasm 05/09/2018 05/08/2018 Inactive Medrol (Dustin) 4 mg tablets in a dose pack RxNorm: 362876 Tablet(s) PO As Directed 05/02/2018 06/16/2018 Inactive hydrocodone 10 mg-acetaminophen 325 mg tablet RxNorm: 612777 1-2 Tablet(s) QID as needed for pain MUST LAST 30 DAYS 04/30/2018 05/29/2018 Inactive (Response to an electronic controlled substance refill request - RxReferenceNumber: [id number]) duloxetine 60 mg capsule,delayed release RxNorm: 383273 TAKE ONE CAPSULE BY MOUTH DAILY 04/16/2018 05/15/2018 Inactive Celebrex 200 mg capsule RxNorm: 267214 TAKE ONE CAPSULE BY MOUT H TWICE A DAY 04/16/2018 06/14/2018 Inactive Singulair 10 mg tablet RxNorm: 185658 TAKE ONE TABLET BY MOUTH JOSÉ Y 04/16/2018 11/19/2018 Inactive Lipitor 10 mg tablet RxNorm: 848830 TAKE ONE TABLET BY MOUTH AT BEDTIME 04/16/2018 05/15/2018 Inactive hydrocodone 10 mg-acetaminophen 325 mg tablet RxNorm: 048984 1-2 Tablet(s) QID as needed for pain MUST LAST 30 DAYS 03/29/2018 04/27/2018 Inactive (Response to an electronic controlled substance refill request - RxReferenceNumber: [id number]) cyclobenzaprine 10 mg tablet RxNorm: 320871 1 Tablet(s) PO TID as needed for muscle spasm 03/18/2018 05/09/2018 Inactive omeprazole 40 mg capsule,delayed release RxNorm: 089968 1 Capsu le(s) PO QD 02/26/2018 08/24/2018 Inactive hydrocodone 10 mg-acetaminophen 325 mg tablet RxNorm: 698317 1-2 Tablet(s) QID as needed for pain MUST LAST 30 DAYS 02/26/2018 03/27/2018 Inactive (Response to an electronic controlled substance refill request - RxReferenceNumber: [id number]) metoprolol tartrate 100 mg tablet RxNorm: 641948 1 Tablet(s) PO BID 02/18/2018 08/05/2018 Inactive Lyrica 75 mg capsule RxNorm: 140107 1 Capsule(s) PO QHS 01/30/2018 Inactive phentermine 37.5 mg tablet RxNorm: 654294 1 Tablet(s) PO QAM 201706/16/2018 Inactive hydrocodone 10 mg-acetaminophen 325 mg tablet RxNorm: 941445 1-2 Tablet(s) QID as needed for pain MUST LAST 30 DAYS 01/29/2018 02/25/2018 Inactive (Response to an electronic controlled substance refill request - RxReferenceNumber: [id number]) Klor-Con 8 mEq tablet,extended release RxNorm: 482961 1 Tablet( s) PO BID 01/14/2018 07/04/2018 Inactive allopurinol 300 mg tablet RxNorm: 592358 1 Tablet(s) PO QD 01/15/2007/04/2018 Inactive Lipitor 10 mg tablet RxNorm: 616953 1 Tablet(s) PO QHS 01/14/201812/2017 Inactive triamterene 75 mg-hydrochlorothiazide 50 mg tablet RxNorm: 3 75398 1 Tablet(s) PO QD 01/14/2018 07/04/2018 Inactive hydrocodone 10 mg-acetaminophen 325 mg tablet RxNorm: 963844 1-2 Tablet(s) QID as needed for pain MUST LAST 30 DAYS 12/27/2017 01/25/2018 Inactive (Response to an electronic controlled substance refill request - RxReferenceNumber: [id number]) Onglyza 5 mg tablet RxNorm: 650290 1 Tablet(s) PO QD 12/18/201701/29 Inactive metformin 500 mg tablet RxNorm: 774049 1 Tablet(s) PO BID 12/11/2017 12/10/2017 Inactive metformin 500 mg tablet RxNorm: 669163 1 Tablet(s) PO BID 12/11/2017 12/17/2017 Inactive furosemide 40 mg tablet RxNorm: 431281 1 Tablet(s) PO Q AM prn edema--take with potassium 12/11/2017 06/08/2018 Inactive cyclobenzaprine 10 mg tablet RxNorm: 847332 1 Tablet(s) PO TID as needed for muscle spasm 12/11/2017 03/18/2018 Inactive hydrocodone 10 mg-acetaminophen 325 mg tablet RxNorm: 126502 1-2 Tablet(s) QID as needed for pain MUST LAST 30 DAYS 10/23/2017 11/21/2017 Inactive (Response to an electronic controlled substance refill request - RxReferenceNumber: [id number]) Lipitor 10 mg tablet RxNorm: 423317 1 Tablet(s) PO QHS 10/16/201703/2018 Inactive cyclobenzaprine 10 mg tablet RxNorm: 463345 1 Tablet(s) PO TID as needed for muscle spasm 10/09/2017 12/10/2017 Inactive hydroxyzine HCl 25 mg tablet RxNorm: 528008 1 Tablet(s) PO BID as needed for anxiety 09/20/2017 01/29/2018 Inactive Effexor XR 75 mg capsule,extended release RxNorm: 672324 1 Caps ule(s) PO QD 09/20/2017 01/29/2018 Inactive metoprolol tartrate 100 mg tablet RxNorm: 848813 1 Tablet(s) PO BID 08/20/2017 02/18/2018 Inactive baclofen 20 mg tablet RxNorm: 176118 1 Tablet(s) PO TID as needed for muscle spasm 08/20/2017 01/21/2019 Inactive clonidine HCl 0.1 mg tablet RxNorm: 778473 1 Tablet(s) PO QID 08/2005/16/2018 Inactive Seroquel 25 mg tablet RxNorm: 556596 1 Tablet(s) PO QHS 08/17/2017 Inactive Seroquel 25 mg tablet RxNorm: 781495 1 Tablet(s) PO QHS 08/17/2017 Inactive Diflucan 100 mg tablet RxNorm: 288163 TAKE ONE TABLET BY MOUTH JOSÉ Y 07/25/2017 08/07/2017 Inactive hydrocodone 10 mg-acetaminophen 325 mg tablet RxNorm: 312788 1-2 Tablet(s) QID as needed for pain MUST LAST 30 DAYS 07/19/2017 08/17/2017 Inactive (Response to an electronic controlled substance refill request - RxReferenceNumber: [id number]) clindamycin 300 mg capsule RxNorm: 724371 1 Capsule(s) PO TID 07/1907/28/2017 Inactive clotrimazole-betamethasone 1 %-0.05 % topical cream RxNorm: 115691 Application TOP BID to elbow rash 07/19/2017 06/16/2018 Inactive Singulair 10 mg tablet RxNorm: 262374 Tablet(s) TAKE ONE TABLET BY MOUTH DAILY 07/18/2017 04/13/2018 Inactive triamterene 75 mg-hydrochlorothiazide 50 mg tablet RxNorm: 3 18597 1 Tablet(s) PO QD 07/18/2017 01/14/2018 Inactive Celebrex 200 mg capsule RxNorm: 383138 Capsule(s) TAKE ONE CAPSULE BY MOUTH TWICE A DAY 07/18/2017 10/15/2017 Inactive hydrocodone 10 mg-acetaminophen 325 mg tablet RxNorm: 558275 1-2 Tablet(s) QID as needed for pain MUST LAST 30 DAYS 06/19/2017 07/18/2017 Inactive (Response to an electronic controlled substance refill request - RxReferenceNumber: [id number]) hydrocodone 10 mg-acetaminophen 325 mg tablet RxNorm: 679817 1-2 Tablet(s) QID as needed for pain MUST LAST 30 DAYS 06/19/2017 06/18/2017 Inactive (Response to an electronic controlled substance refill request - RxReferenceNumber: [id number]) baclofen 20 mg tablet RxNorm: 976191 1 Tablet(s) PO TID as needed for muscle spasm 06/18/2017 08/20/2017 Inactive Medrol (Dustin) 4 mg tablets in a dose pack RxNorm: 405945 Tablet(s) PO As Directed 06/05/2017 07/18/2017 Inactive omeprazole 40 mg capsule,delayed release RxNorm: 969166 1 Capsu le(s) PO QD 04/20/2017 10/16/2017 Inactive Premarin 1.25 mg tablet RxNorm: 548153 1-2 Tablet(s) PO QD 04/11/20 17 05/15/2018 Inactive duloxetine 60 mg capsule,delayed release RxNorm: 860483 1 Capsu le(s) PO QD 04/11/2017 09/19/2017 Inactive furosemide 40 mg tablet RxNorm: 249153 1 Tablet(s) PO Q AM prn edema--take with potassium 04/11/2017 12/11/2017 Inactive Klor-Con 8 mEq tablet,extended release RxNorm: 757681 1 Tablet( s) PO BID 04/11/2017 01/14/2018 Inactive Lipitor 10 mg tablet RxNorm: 258273 1 Tablet(s) PO QHS 04/11/201702/2018 Inactive amlodipine 5 mg-benazepril 20 mg capsule RxNorm: 402251 1 Capsu le(s) PO QD 04/11/2017 01/29/2018 Inactive allopurinol 300 mg tablet RxNorm: 169114 1 Tablet(s) PO QD 04/11/20 17 01/14/2018 Inactive clonidine HCl 0.1 mg tablet RxNorm: 598705 1 Tablet(s) PO QID 04/0508/19/2017 Inactive baclofen 20 mg tablet RxNorm: 622549 1 Tablet(s) PO TID as needed for muscle spasm 04/02/2017 06/18/2017 Inactive Premarin 1.25 mg tablet RxNorm: 587109 1-2 Tablet(s) PO QD 03/20/20 17 04/10/2017 Inactive hydrocodone 10 mg-acetaminophen 325 mg tablet RxNorm: 546958 1-2 Tablet(s) QID as needed for pain MUST LAST 30 DAYS 03/14/2017 01/21/2019 Inactive (Response to an electronic controlled substance refill request - RxReferenceNumber: [id number]) metoprolol tartrate 100 mg tablet RxNorm: 654058 1 Tablet(s) PO BID 02/12/2017 08/20/2017 Inactive hydrocodone 10 mg-acetaminophen 325 mg tablet RxNorm: 871935 1-2 Tablet(s) QID as needed for pain MUST LAST 30 DAYS 02/08/2017 03/09/2017 Inactive (Response to an electronic controlled substance refill request - RxReferenceNumber: [id number]) metoprolol tartrate 100 mg tablet RxNorm: 019730 TAKE O NE TABLET BY MOUTH TWICE A DAY 01/11/2017 02/12/2017 Inactive metoprolol tartrate 100 mg tablet RxNorm: 102789 1 Tablet(s) PO BID 12/18/2016 12/17/2016 Inactive metoprolol tartrate 100 mg tablet RxNorm: 095005 1 Tablet(s) PO BID 12/18/2016 01/10/2017 Inactive furosemide 40 mg tablet RxNorm: 973926 1 Tablet(s) PO Q AM prn edema--take with potassium 12/13/2016 02/10/2017 Inactive amitriptyline 100 mg tablet RxNorm: 856496 1 Tablet(s) PO QHS 11/2812/12/2016 Inactive baclofen 20 mg tablet RxNorm: 934453 1 Tablet(s) PO TID as needed for muscle spasm 11/14/2016 04/01/2017 Inactive triamterene 75 mg-hydrochlorothiazide 50 mg tablet RxNorm: 3 89773 1 Tablet(s) PO QD 11/14/2016 11/13/2016 Inactive metolazone 2.5 mg tablet RxNorm: 364836 TAKE ONE TABLET BY MOUTH DAILY NEEDED FOR EDEMA 11/14/2016 12/12/2016 Inactive triamterene 75 mg-hydrochlorothiazide 50 mg tablet RxNorm: 3 72263 1 Tablet(s) PO QD 11/14/2016 07/18/2017 Inactive amitriptyline 50 mg tablet RxNorm: 941564 TAKE ONE TABL ET BY MOUTH AT BEDTIME NEEDED FOR SLEEP 11/14/2016 11/27/2016 Inactive Cymbalta 60 mg capsule,delayed release RxNorm: 857617 1 Capsule (s) PO QHS 11/14/2016 12/12/2016 Inactive clonidine HCl 0.1 mg tablet RxNorm: 763273 1 Tablet(s) PO QID 11/1304/04/2017 Inactive amitriptyline 50 mg tablet RxNorm: 504917 1 Tablet(s) P O QHS as needed for sleep 11/01/2016 11/27/2016 Inactive duloxetine 60 mg capsule,delayed release RxNorm: 312830 TAKE ONE CAPSULE BY MOUTH DAILY 10/20/2016 01/17/2017 Inactive allopurinol 300 mg tablet RxNorm: 058603 TAKE ONE TABLET BY LOPEZ TH DAILY 10/20/2016 01/16/2017 Inactive Lyrica 75 mg capsule RxNorm: 300027 TAKE ONE CAPSULE BY MOUTH EVERY NIGHT AT BEDTIME 10/20/2016 12/10/2016 Inactive Klor-Con 8 mEq tablet,extended release RxNorm: 777323 T FARRUKH ONE TABLET BY MOUTH TWICE A DAY 10/20/2016 01/17/2017 Inactive Celebrex 200 mg capsule RxNorm: 647375 TAKE ONE CAPSULE BY MOUT H TWICE A DAY 10/20/2016 07/18/2017 Inactive Bystolic 10 mg tablet RxNorm: 926572 TAKE ONE TABLET BY MOUTH EVERY NIGHT AT BEDTIME 10/20/2016 12/17/2016 Inactive amlodipine 5 mg-benazepril 20 mg capsule RxNorm: 817433 TAKE ONE CAPSULE BY MOUTH EVERY NIGHT AT BEDTIME -- TO REPLACE AMLODOPINE 10/20/20162016 Inactive Lipitor 10 mg tablet RxNorm: 961948 TAKE ONE TABLET BY MOUTH EVERY NIGHT AT BEDTIME 10/20/2016 01/17/2017 Inactive alprazolam 0.5 mg tablet RxNorm: 721692 3 Tablet(s) PO QHS as needed for sleep/anxiety 09/20/2016 10/31/2016 Inactive Tamiflu 75 mg capsule RxNorm: 173370 1 Capsule(s) PO QD 09/19/2016 Inactive Lyrica 75 mg capsule RxNorm: 324941 1 Capsule(s) PO QHS 09/19/2016 Inactive prednisone 20 mg tablet RxNorm: 534430 1 Tablet(s) PO QD 08/10/2016 1 10/17/2015 Inactive doxycycline hyclate 100 mg capsule RxNorm: 8503276 1 Capsule(s) PO BID 08/10/2016 08/19/2016 Inactive Medrol (Dustin) 4 mg tablets in a dose pack RxNorm: 734755 Tablet(s) PO As Directed 07/31/2016 08/22/2016 Inactive Singulair 10 mg tablet RxNorm: 189157 TAKE ONE TABLET BY MOUTH JOSÉ Y 07/27/2016 07/18/2017 Inactive hydrocodone 10 mg-acetaminophen 325 mg tablet RxNorm: 596528 1-2 Tablet(s) QID as needed for pain MUST LAST 30 DAYS 07/26/2016 08/24/2016 Inactive (Response to an electronic controlled substance refill request - RxReferenceNumber: [id number]) alprazolam 0.5 mg tablet RxNorm: 742388 3 Tablet(s) PO QHS as needed for anxiety or sleep 07/26/2016 09/20/2016 Inactive clindamycin 300 mg capsule RxNorm: 624340 1 Capsule(s) PO TID 07/2007/29/2016 Inactive Diflucan 100 mg tablet RxNorm: 260550 1 Tablet(s) PO QD 07/20/2016 Inactive Levaquin 500 mg tablet RxNorm: 985946 1 Tablet(s) PO QD 07/17/2016 Inactive Levaquin 500 mg tablet RxNorm: 439340 1 Tablet(s) PO QD 07/10/2016 Inactive Levaquin 500 mg tablet RxNorm: 135760 1 Tablet(s) PO QD 07/10/2016 Inactive mupirocin 2 % topical ointment RxNorm: 627263 TOP Apply topically to affected areas twice daily 07/06/2016 09/18/2016 Inactive Singulair 10 mg tablet RxNorm: 774597 TAKE ONE TABLET BY MOUTH JOSÉ Y 06/21/2016 01/21/2019 Inactive alprazolam 0.5 mg tablet RxNorm: 155006 TAKE THREE TABL ETS BY MOUTH AT BEDTIME NEEDED FOR SLEEP OR STRESS 05/22/2016 06/20/2016 Inactive triamterene 75 mg-hydrochlorothiazide 50 mg tablet RxNorm: 3 88679 1 Tablet(s) PO QD 04/26/2016 01/12/2020 Inactive Premarin 1.25 mg tablet RxNorm: 962604 1-2 Tablet(s) PO QD 04/26/20 16 03/20/2017 Inactive Klor-Con 8 mEq tablet,extended release RxNorm: 490392 1 Tablet( s) PO BID 04/26/2016 10/19/2016 Inactive Celebrex 200 mg capsule RxNorm: 177625 1 Capsule(s) PO BID TAKE ONE CAPSULE BY MOUTH EVERY DAY 04/26/2016 10/19/2016 Inactive Lipitor 10 mg tablet RxNorm: 587433 1 Tablet(s) PO QHS 04/26/201605/2017 Inactive allopurinol 300 mg tablet RxNorm: 773895 1 Tablet(s) PO QD TAKE ONE TABLET BY MOUTH EVERY DAY 04/26/2016 10/19/2016 Inactive amlodipine 5 mg-benazepril 20 mg capsule RxNorm: 712573 1 Capsule(s) PO QHS replaces amlodopine 04/26/2016 10/19/2016 Inactive duloxetine 60 mg capsule,delayed release RxNorm: 030484 1 Capsu le(s) PO QD 04/26/2016 10/19/2016 Inactive Bystolic 10 mg tablet RxNorm: 531851 1 Tablet(s) PO QHS 04/26/2016 Inactive Singulair 10 mg tablet RxNorm: 361663 1 Tablet(s) PO QD TAKE ONE TABLET BY MOUTH DAILY 04/26/2016 06/20/2016 Inactive clonidine HCl 0.1 mg tablet RxNorm: 104181 1 Tablet(s) PO QID 04/2610/22/2016 Inactive hydrocodone 10 mg-acetaminophen 325 mg tablet RxNorm: 229412 1-2 Tablet(s) QID as needed for pain TAKE ONE TO TWO TABLETS BY MOUTH FOUR TIMES A DAY . MUST LAST 30 DAYS 03/31/2016 04/29/2016 Inactive (Response to an electronic controlled substance refill request - RxReferenceNumber: [id number]) Klor-Con 8 mEq tablet,extended release RxNorm: 080571 T FARRUKH ONE TABLET BY MOUTH TWICE A DAY 03/24/2016 09/29/2019 Inactive prednisone 20 mg tablet RxNorm: 085643 1 Tablet(s) PO QD 03/09/2016 0 03/08/2016 Inactive prednisone 20 mg tablet RxNorm: 888295 1 Tablet(s) PO QD 03/09/2016 0 03/13/2016 Inactive alprazolam 0.5 mg tablet RxNorm: 604603 3 Tablet(s) PO QHS as needed for sleep/stress 03/02/2016 01/21/2019 Inactive mupirocin 2 % topical ointment RxNorm: 342363 TOP twice daily to affected areas of face and neck 02/21/2016 04/25/2016 Inactive clonidine HCl 0.1 mg tablet RxNorm: 407445 TAKE ONE TAB LET BY MOUTH FOUR TIMES A DAY 02/15/2016 09/29/2019 Inactive clonidine HCl 0.1 mg tablet RxNorm: 487867 1 Tablet(s) PO QID 02/1404/25/2016 Inactive Premarin 1.25 mg tablet RxNorm: 984239 1-2 Tablet(s) PO QD 02/15/20 16 03/15/2016 Inactive Klor-Con 8 mEq tablet,extended release RxNorm: 371630 T FARRUKH ONE TABLET BY MOUTH TWICE A DAY 02/15/2016 03/15/2016 Inactive potassium chloride ER 20 mEq tablet,extended release(part/cr yst) RxNorm: 514438 2 Tablet(s) PO BID 02/15/2016 03/15/2016 Inactive Macrobid 100 mg capsule RxNorm: 665541 1 Capsule(s) PO BID 01/24/2001/30/2016 Inactive prednisone 20 mg tablet RxNorm: 460602 Take 3tabs PO QD x 2 days, then 2 tabs PO QD x 2 days, then 1 tab PO QD x 2 days, then 1/2 tab PO QDy x 2 days 12/23/2015 04/25/2016 Inactive Klor-Con 8 mEq tablet,extended release RxNorm: 105262 T FARRUKH ONE TABLET BY MOUTH TWICE A DAY 12/20/2015 02/14/2016 Inactive alprazolam 1 mg tablet RxNorm: 106645 1 1/2 Tablet(s) PO QHS 201501/23/2016 Inactive nystatin 100,000 unit/gram topical cream RxNorm: 499886 APPLY TO AFFECTED AREA(S) TWO TIMES A DAY 11/30/2015 12/14/2015 Inactive Singulair 10 mg tablet RxNorm: 775558 TAKE ONE TABLET BY MOUTH JOSÉ Y 11/18/2015 04/25/2016 Inactive allopurinol 300 mg tablet RxNorm: 459056 1 Tablet(s) PO QD TAKE ONE TABLET BY MOUTH EVERY DAY 10/26/2015 04/22/2016 Inactive Singulair 10 mg tablet RxNorm: 039448 TAKE ONE TABLET BY MOUTH JOSÉ Y 10/26/2015 11/17/2015 Inactive duloxetine 60 mg capsule,delayed release RxNorm: 309374 1 Capsu le(s) PO QD 10/26/2015 04/22/2016 Inactive triamterene 75 mg-hydrochlorothiazide 50 mg tablet RxNorm: 3 22119 1 Tablet(s) PO QD 10/26/2015 11/14/2016 Inactive potassium chloride ER 20 mEq tablet,extended release(part/cr yst) RxNorm: 038558 2 Tablet(s) PO BID 10/26/2015 02/14/2016 Inactive Lipitor 10 mg tablet RxNorm: 429610 1 Tablet(s) PO QHS 10/26/2015 Inactive amlodipine 5 mg-benazepril 20 mg capsule RxNorm: 035270 1 Capsule(s) PO QHS replaces amlodopine 10/26/2015 04/22/2016 Inactive Bystolic 10 mg tablet RxNorm: 553520 1 Tablet(s) PO QHS 10/26/2015 Inactive amlodipine 5 mg-benazepril 20 mg capsule RxNorm: 603667 1 Capsule(s) PO QHS replaces amlodopine 10/06/2015 10/25/2015 Inactive amlodipine 5 mg tablet RxNorm: 952664 1 Tablet(s) PO QHS 09/30/2015 0 04/25/2016 Inactive metolazone 2.5 mg tablet RxNorm: 412741 TAKE ONE TABLET BY MOUTH DAILY NEEDED FOR EDEMA 09/30/2015 01/21/2019 Inactive duloxetine 60 mg capsule,delayed release RxNorm: 268742 1 Capsu le(s) PO QD 09/30/2015 10/25/2015 Inactive cephalexin 500 mg capsule RxNorm: 950464 1 Capsule(s) PO BID 201509/23/2015 Inactive mupirocin 2 % topical ointment RxNorm: 463881 TOP twice daily to affected areas of face and neck 09/14/2015 02/20/2016 Inactive baclofen 20 mg tablet RxNorm: 135493 1 Tablet(s) PO TID as needed for muscle spasm 09/01/2015 11/14/2016 Inactive clonidine HCl 0.1 mg tablet RxNorm: 615457 1 Tablet(s) PO QID 09/0102/14/2016 Inactive alprazolam 1 mg tablet RxNorm: 820042 1 1/2 Tablet(s) PO QHS 201409/09/2015 Inactive baclofen 20 mg tablet RxNorm: 605370 1 Tablet(s) PO TID as needed for muscle spasm 07/23/2015 09/01/2015 Inactive omeprazole 40 mg capsule,delayed release RxNorm: 200643 1 Capsu le(s) PO QD 07/23/2015 04/25/2016 Inactive alprazolam 1 mg tablet RxNorm: 887591 1 1/2 Tablet(s) PO QHS 201408/10/2015 Inactive Bystolic 10 mg tablet RxNorm: 513002 1 Tablet(s) PO BID 06/24/2015 Inactive allopurinol 300 mg tablet RxNorm: 028269 1 Tablet(s) PO QD TAKE ONE TABLET BY MOUTH EVERY DAY 06/23/2015 10/20/2015 Inactive alprazolam 1 mg tablet RxNorm: 181016 1 1/2 Tablet(s) PO QHS 201407/06/2015 Inactive clonidine HCl 0.1 mg tablet RxNorm: 936332 1 Tablet(s) PO QID 06/0209/01/2015 Inactive clonidine HCl 0.1 mg tablet RxNorm: 467578 1 Tablet(s) PO QID 06/0206/01/2015 Inactive Cymbalta 60 mg capsule,delayed release RxNorm: 355341 1 Capsule (s) PO QHS 06/02/2015 08/30/2015 Inactive Cymbalta 60 mg capsule,delayed release RxNorm: 550360 1 Capsule (s) PO QHS 06/02/2015 06/01/2015 Inactive clonidine HCl 0.1 mg tablet RxNorm: 288311 1 Tablet(s) PO TID 05/3106/01/2015 Inactive replaces 0.2mg dose metolazone 2.5 mg tablet RxNorm: 594570 TAKE ONE TABLET BY MOUTH DAILY NEEDED FOR EDEMA 05/21/2015 06/19/2015 Inactive Singulair 10 mg tablet RxNorm: 778124 TAKE ONE TABLET BY MOUTH JOSÉ Y 05/21/2015 10/17/2015 Inactive Cymbalta 30 mg capsule,delayed release RxNorm: 189156 1 Capsule (s) PO QHS 05/20/2015 11/14/2016 Inactive betamethasone valerate 0.1 % topical cream RxNorm: 694645 Appli cation TOP BID 05/10/2015 04/25/2016 Inactive Bactroban 2 % topical ointment RxNorm: 613088 Application TOP BID 0 05/10/2015 06/20/2015 Inactive baclofen 20 mg tablet RxNorm: 764152 1 Tablet(s) PO TID as needed 0 04/26/2015 07/23/2015 Inactive Lipitor 10 mg tablet RxNorm: 114736 1 Tablet(s) PO QHS 04/26/201508/2016 Inactive clonidine HCl 0.1 mg tablet RxNorm: 641537 1 Tablet(s) PO TID 04/2605/30/2015 Inactive replaces 0.2mg dose Klor-Con 8 mEq tablet,extended release RxNorm: 128081 1 Tablet( s) PO BID 04/26/2015 04/25/2016 Inactive metolazone 2.5 mg tablet RxNorm: 028622 1 Tablet(s) PO QD as ne eded for edema 04/26/2015 04/25/2015 Inactive triamterene 75 mg-hydrochlorothiazide 50 mg tablet RxNorm: 3 99368 1 Tablet(s) PO QD 04/26/2015 10/22/2015 Inactive Premarin 1.25 mg tablet RxNorm: 589667 1-2 Tablet(s) PO QD 04/26/20 15 10/22/2015 Inactive Bystolic 10 mg tablet RxNorm: 507531 1 Tablet(s) PO QAM TAKE ONE TABLET BY MOUTH EVERY MORNING 04/23/2015 06/23/2015 Inactive clonidine HCl 0.1 mg tablet RxNorm: 782633 1 Tablet(s) PO TID 03/2304/25/2015 Inactive replaces 0.2mg dose nystatin 100,000 unit/gram topical cream RxNorm: 869641 Applica tion TOP BID 03/23/2015 06/20/2015 Inactive baclofen 20 mg tablet RxNorm: 663945 1 Tablet(s) PO TID as needed 0 03/23/2015 04/25/2015 Inactive Premarin 1.25 mg tablet RxNorm: 137649 1-2 Tablet(s) PO QD 03/23/20 15 04/25/2015 Inactive Klor-Con 8 mEq tablet,extended release RxNorm: 131408 1 Tablet( s) PO BID 03/23/2015 04/25/2015 Inactive cefdinir 300 mg capsule RxNorm: 055235 2 Capsule(s) PO QD 03/16/2015 03/25/2015 Inactive baclofen 20 mg tablet RxNorm: 204426 1 Tablet(s) PO TID as needed 0 03/02/2015 03/22/2015 Inactive allopurinol 300 mg tablet RxNorm: 860377 1 Tablet(s) PO QD TAKE ONE TABLET BY MOUTH EVERY DAY 02/22/2015 05/22/2015 Inactive Klor-Con M20 mEq tablet,extended release RxNorm: 093995 2 Tablet(s) PO BID to use with lasix 02/22/2015 06/20/2015 Inactive clonidine HCl 0.1 mg tablet RxNorm: 264366 1 Tablet(s) PO TID 02/1903/22/2015 Inactive replaces 0.2mg dose Lipitor 10 mg tablet RxNorm: 565942 1 Tablet(s) PO QHS 01/20/201506/2015 Inactive Lipitor 10 mg tablet RxNorm: 639223 1 Tablet(s) PO QHS 01/20/2015 Inactive Singulair 10 mg tablet RxNorm: 988491 1 Tablet(s) PO QD TAKE ONE TABLET BY MOUTH EVERY DAY 11/20/2014 05/18/2015 Inactive Lipitor 10 mg tablet RxNorm: 104189 1 Tablet(s) PO QHS 11/20/201408/2015 Inactive allopurinol 300 mg tablet RxNorm: 909426 1 Tablet(s) PO QD TAKE ONE TABLET BY MOUTH EVERY DAY 11/20/2014 02/16/2015 Inactive Bystolic 10 mg tablet RxNorm: 147698 1 Tablet(s) PO QAM TAKE ONE TABLET BY MOUTH EVERY MORNING 11/20/2014 04/22/2015 Inactive Klor-Con 8 mEq tablet,extended release RxNorm: 101407 1 Tablet( s) PO BID 11/20/2014 02/17/2015 Inactive baclofen 20 mg tablet RxNorm: 909166 1 Tablet(s) PO TID as needed 0 11/20/2014 01/21/2019 Inactive baclofen 20 mg tablet RxNorm: 512027 1 Tablet(s) PO TID as needed 0 10/27/2014 11/19/2014 Inactive baclofen 20 mg tablet RxNorm: 758584 1 Tablet(s) PO TID as needed 0 10/26/2014 03/01/2015 Inactive allopurinol 300 mg tablet RxNorm: 803719 1 Tablet(s) PO QD TAKE ONE TABLET BY MOUTH EVERY DAY 10/26/2014 11/20/2014 Inactive Bystolic 10 mg tablet RxNorm: 550157 1 Tablet(s) PO QAM TAKE ONE TABLET BY MOUTH EVERY MORNING 10/26/2014 11/20/2014 Inactive clonidine HCl 0.1 mg tablet RxNorm: 863224 1 Tablet(s) PO TID 09/2805/27/2019 Inactive replaces 0.2mg dose clonidine HCl 0.1 mg tablet RxNorm: 285300 1 Tablet(s) PO TID 09/2802/18/2015 Inactive replaces 0.2mg dose baclofen 20 mg tablet RxNorm: 071907 1 Tablet(s) PO TID as needed 1 11/01/2013 08/30/2014 Inactive Lipitor 10 mg tablet RxNorm: 048156 1 Tablet(s) PO QHS 08/31/2014 Inactive baclofen 20 mg tablet RxNorm: 183712 1 Tablet(s) PO TID as needed 1 11/01/2013 10/26/2014 Inactive triamterene 75 mg-hydrochlorothiazide 50 mg tablet RxNorm: 3 60389 1 Tablet(s) PO QD 08/31/2014 02/26/2015 Inactive Klor-Con 8 mEq tablet,extended release RxNorm: 921857 1 Tablet( s) PO BID 08/31/2014 11/20/2014 Inactive baclofen 20 mg tablet RxNorm: 392010 1 Tablet(s) PO TID as needed 1 09/30/2013 10/25/2014 Inactive baclofen 20 mg tablet RxNorm: 536368 1 Tablet(s) PO TID as needed 1 09/30/2013 08/31/2014 Inactive omeprazole 40 mg capsule,delayed release RxNorm: 600667 1 Capsu le(s) PO QD 07/21/2014 07/23/2015 Inactive Flonase 50 mcg/actuation nasal spray,suspension RxNorm: 8963 23 1 [place] NASAL BID 07/15/2014 04/09/2017 Inactive hydrocodone 10 mg-acetaminophen 325 mg tablet RxNorm: 974823 1-2 Tablet(s) QID as needed for pain TAKE ONE TO TWO TABLETS BY MOUTH FOUR TIMES A DAY . MUST LAST 30 DAYS 06/30/2014 07/27/2014 Inactive (Response to an electronic controlled substance refill request - RxReferenceNumber: [id number]) baclofen 20 mg tablet RxNorm: 840844 1 Tablet(s) PO TID as needed 1 07/31/2014 Inactive Singulair 10 mg tablet RxNorm: 427093 1 Tablet(s) PO QD TAKE ONE TABLET BY MOUTH EVERY DAY 05/25/2014 11/20/2014 Inactive Bystolic 10 mg tablet RxNorm: 640278 TAKE ONE TABLET BY MOUTH E VERY MORNING 05/25/2014 09/21/2014 Inactive allopurinol 300 mg tablet RxNorm: 835800 1 Tablet(s) PO QD TAKE ONE TABLET BY MOUTH EVERY DAY 05/25/2014 10/21/2014 Inactive baclofen 20 mg tablet RxNorm: 160696 1 Tablet(s) PO TID as needed 0 05/25/2014 06/29/2014 Inactive allopurinol 300 mg tablet RxNorm: 999284 TAKE ONE TABLET BY OLPEZ TH EVERY DAY 05/25/2014 09/21/2014 Inactive Singulair 10 mg tablet RxNorm: 108435 1 Tablet(s) PO QD TAKE ONE TABLET BY MOUTH EVERY DAY 05/25/2014 05/24/2014 Inactive Bystolic 10 mg tablet RxNorm: 696962 1 Tablet(s) PO QAM TAKE ONE TABLET BY MOUTH EVERY MORNING 05/25/2014 10/21/2014 Inactive metolazone 2.5 mg tablet RxNorm: 777883 1 Tablet(s) PO QD as ne eded for edema 05/18/2014 04/25/2015 Inactive Lasix 40 mg tablet RxNorm: 686631 1 Tablet(s) PO QAM s hould take potassium supplementation with this medication 05/14/2014 05/17/2014 Inactive hydrocodone 10 mg-acetaminophen 325 mg tablet RxNorm: 399573 1-2 Tablet(s) QID as needed for pain TAKE ONE TO TWO TABLETS BY MOUTH FOUR TIMES A DAY . MUST LAST 30 DAYS 05/07/2014 06/05/2014 Inactive (Response to an electronic controlled substance refill request - RxReferenceNumber: [id number]) alprazolam 0.5 mg tablet RxNorm: 947019 TAKE ONE TABLET BY MOUTH TWICE A DAY , MUST LAST 30 DAYS 05/07/2014 05/22/2016 Inactive (Response to a n electronic controlled substance refill request - RxReferenceNumber: [id number]) diclofenac sodium 75 mg tablet,delayed release RxNorm: 74549 6 1 Tablet(s) PO BID for pain 04/24/2014 07/20/2014 Inactive Celebrex 200 mg capsule RxNorm: 090201 TAKE ONE CAPSULE BY MOUT H EVERY DAY 04/24/2014 07/20/2014 Inactive alprazolam 0.5 mg tablet RxNorm: 254250 TAKE ONE TABLET BY MOUTH TWICE A DAY , MUST LAST 30 DAYS 03/24/2014 04/22/2014 Inactive (Response to a n electronic controlled substance refill request - RxReferenceNumber: [id number]) diclofenac sodium 75 mg tablet,delayed release RxNorm: 71857 6 1 Tablet(s) PO BID for pain 03/24/2014 04/24/2014 Inactive clonidine HCl 0.1 mg tablet RxNorm: 177963 1 Tablet(s) PO TID 03/2409/28/2014 Inactive replaces 0.2mg dose Klor-Con 8 mEq tablet,extended release RxNorm: 422474 1 Tablet( s) PO BID 02/26/2014 08/31/2014 Inactive diclofenac sodium 75 mg tablet,delayed release RxNorm: 86058 6 1 Tablet(s) PO BID for pain 02/25/2014 03/24/2014 Inactive hydrocodone 10 mg-acetaminophen 325 mg tablet RxNorm: 579531 1-2 Tablet(s) QID as needed for pain TAKE ONE TO TWO TABLETS BY MOUTH FOUR TIMES A DAY . MUST LAST 30 DAYS 02/25/2014 03/26/2014 Inactive (Response to an electronic controlled substance refill request - RxReferenceNumber: [id number]) alprazolam 0.5 mg tablet RxNorm: 860217 Tablet(s) PO BI D as needed for anxiety TAKE ONE TABLET BY MOUTH TWICE A DAY , MUST LAST 30 DAYS 02/25/2014 Inactive (Response to an electronic controlled [place] bstance refill request - RxReferenceNumber: [id number]) [AttnRPh: Saving apply/adjudicate RxGRP:SG20 RxBIN:[id number] RxPCN: ID#:[id number]] alprazolam 0.5 mg tablet RxNorm: 417043 Tablet(s) TAKE ONE TABLET BY MOUTH TWICE A DAY , MUST LAST 30 DAYS 01/27/2014 02/24/2014 Inactive (Respo nse to an electronic controlled substance refill request - RxReferenceNumber: [id number]) [AttnRPh: Saving apply/adjudicate RxGRP:SG20 RxBIN:[id number] RxPCN: ID#:[id number]] hydrocodone 10 mg-acetaminophen 325 mg tablet RxNorm: 110963 1-2 Tablet(s) QID as needed for pain TAKE ONE TO TWO TABLETS BY MOUTH FOUR TIMES A DAY . MUST LAST 30 DAYS 01/27/2014 02/24/2014 Inactive (Response to an electronic controlled substance refill request - RxReferenceNumber: [id number]) alprazolam 0.5 mg tablet RxNorm: 650917 TAKE ONE TABLET BY MOUTH TWICE A DAY , MUST LAST 30 DAYS 01/27/2014 01/26/2014 Inactive (Response to a n electronic controlled substance refill request - RxReferenceNumber: [id number]) Premarin 1.25 mg tablet RxNorm: 463562 1-2 Tablet(s) PO QD 01/28/2007/25/2014 Inactive alprazolam 0.5 mg tablet RxNorm: 021234 TAKE ONE TABLET BY MOUTH TWICE A DAY , MUST LAST 30 DAYS 01/27/2014 01/27/2014 Inactive (Response to a n electronic controlled substance refill request - RxReferenceNumber: [id number]) hydrocodone 10 mg-acetaminophen 325 mg tablet RxNorm: 984849 TAKE ONE TO TWO TABLETS BY MOUTH FOUR TIMES A DAY . MUST LAST 30 DAYS 01/27/20142013 Inactive (Response to an electronic controlled [place] bstance refill request - RxReferenceNumber: [id number]) Celebrex 200 mg capsule RxNorm: 731365 1 Capsule(s) PO QD TAKE ONE CAPSULE BY MOUTH EVERY DAY 12/29/2013 04/27/2014 Inactive hydrocodone 10 mg-acetaminophen 325 mg tablet RxNorm: 827172 1-2 Tablet(s) PO QID as needed for severe pain 12/29/2013 01/27/2014 Inactive allopurinol 300 mg tablet RxNorm: 184178 1 Tablet(s) PO QD TAKE ONE TABLET BY MOUTH EVERY DAY 12/29/2013 05/24/2014 Inactive alprazolam 0.5 mg tablet RxNorm: 757707 TAKE ONE TABLET BY MOUTH TWICE A DAY , MUST LAST 30 DAYS 12/29/2013 01/27/2014 Inactive (Response to a n electronic controlled substance refill request - RxReferenceNumber: [id number]) Celebrex 200 mg capsule RxNorm: 014064 1 Capsule(s) PO QD TAKE ONE CAPSULE BY MOUTH EVERY DAY 12/29/2013 12/29/2013 Inactive Bystolic 10 mg tablet RxNorm: 737207 1 Tablet(s) PO QAM TAKE ONE TABLET BY MOUTH EVERY MORNING 12/29/2013 05/24/2014 Inactive Bystolic 10 mg tablet RxNorm: 331791 1 Tablet(s) PO QAM TAKE ONE TABLET BY MOUTH EVERY MORNING 12/29/2013 12/29/2013 Inactive Singulair 10 mg tablet RxNorm: 495236 1 Tablet(s) PO QD TAKE ONE TABLET BY MOUTH EVERY DAY 12/29/2013 05/25/2014 Inactive hydrocodone 10 mg-acetaminophen 325 mg tablet RxNorm: 499376 TAKE ONE TO TWO TABLETS BY MOUTH FOUR TIMES A DAY . MUST LAST 30 DAYS 12/29/20132013 Inactive (Response to an electronic controlled cornell bstance refill request - RxReferenceNumber: [id number]) Trazadone 75mg Tablet RxNorm: 1 Tablet(s) PO QHS as needed 03/23/2014 Inactive Trazadone 75mg Tablet RxNorm: 1 Tablet(s) PO QHS 12/24/20132014 Inactive Soma 350 mg tablet RxNorm: 429005 Tablet(s) PO TAKE ON E TABLET BY MOUTH THREE TIMES A DAY NEEDED FOR MUSCLE SPASMS. THIS MUST LAST 30 DAYS BETWEEN REFILLS. 12/10/2013 12/22/2013 Inactive (Appended: Cont rolled substance eRx refill - RxReferenceNumber: [id number]) diclofenac sodium 75 mg tablet,delayed release RxNorm: 42615 6 1 Tablet(s) PO BID for pain 12/10/2013 02/24/2014 Inactive allopurinol 300 mg tablet RxNorm: 183492 1 Tablet(s) PO QD 11/20/19 14 12/29/2013 Inactive alprazolam 0.5 mg tablet RxNorm: 492057 2 Tablet(s) PO BID 11/13/19 14 12/29/2013 Inactive prn clonidine 0.1 mg tablet RxNorm: 008539 1 Tablet(s) PO TID 11/12/2013 02/09/2014 Inactive replaces 0.2mg dose Klor-Con M20 mEq tablet,extended release RxNorm: 131553 2 Tablet(s) PO BID to use with lasix 11/12/2013 05/10/2014 Inactive Singulair 10 mg tablet RxNorm: 346830 1 Tablet(s) PO QD 11/12/2013 Inactive hydrocodone 10 mg-acetaminophen 325 mg tablet RxNorm: 316403 1-2 Tablet(s) PO QID as needed for severe pain 11/12/2013 12/28/2013 Inactive Bystolic 10 mg tablet RxNorm: 778725 1 Tablet(s) PO QAM 11/12/2013 Inactive Soma 350 mg tablet RxNorm: 872276 Tablet(s) PO TAKE ON E TABLET BY MOUTH THREE TIMES A DAY NEEDED FOR MUSCLE SPASMS. THIS MUST LAST 30 DAYS BETWEEN REFILLS. 10/13/2013 12/10/2013 Inactive (Appended: Cont rolled substance eRx refill - RxReferenceNumber: [id number]) hydrocodone 10 mg-acetaminophen 325 mg tablet RxNorm: 881102 1-2 Tablet(s) PO QID as needed for severe pain 10/03/2013 11/11/2013 Inactive diclofenac sodium 75 mg tablet,delayed release RxNorm: 71233 8 1 Tablet(s) PO BID for pain 09/11/2013 12/10/2013 Inactive alprazolam 0.5 mg tablet RxNorm: 060777 1 Tablet(s) PO BID May refill on 04/26/13 09/01/2013 10/30/2013 Inactive prn hydrocodone 10 mg-acetaminophen 325 mg tablet RxNorm: 028132 1-2 Tablet(s) PO QID as needed for severe pain 09/01/2013 10/02/2013 Inactive triamterene 75 mg-hydrochlorothiazide 50 mg tablet RxNorm: 3 43313 1 Tablet(s) PO QD 08/04/2013 08/31/2014 Inactive cyclobenzaprine 10 mg tablet RxNorm: 013809 1 Tablet(s) PO TID prn spasm 08/04/2013 08/13/2013 Inactive clonidine 0.1 mg tablet RxNorm: 532386 1 Tablet(s) PO TID 08/04/2013 11/11/2013 Inactive replaces 0.2mg dose cyclobenzaprine 10 mg tablet RxNorm: 111597 1 Tablet(s) PO TID prn spasm 07/23/2013 08/01/2013 Inactive hydrocodone 10 mg-acetaminophen 325 mg tablet RxNorm: 469776 2 1-2 Tablet(s) PO QID as needed for severe pain 06/09/2013 08/07/2013 Inactive Singulair 10 mg tablet RxNorm: 986819 1 Tablet(s) PO QD 05/29/2013 Inactive Klor-Con 8 mEq tablet,extended release RxNorm: 689689 1 Tablet( s) PO BID 05/29/2013 02/26/2014 Inactive allopurinol 300 mg tablet RxNorm: 867468 1 Tablet(s) PO QD 05/29/20 13 11/19/2013 Inactive Bystolic 10 mg tablet RxNorm: 479067 1 Tablet(s) PO QAM take one daily in the morning. 05/29/2013 11/11/2013 Inactive scopolamine 1.5 mg 72 hr Transderm Patch RxNorm: 602900 Application TD Q72H for motion sickness 05/26/2013 07/22/2013 Inactive Soma 350 mg tablet RxNorm: 691889 1 Tablet(s) PO TID as needed for spasm 05/19/2013 10/13/2013 Inactive diclofenac sodium 75 mg tablet,delayed release RxNorm: 04085 8 1 Tablet(s) PO BID for pain 05/14/2013 07/22/2013 Inactive allopurinol 300 mg tablet RxNorm: 981288 1 Tablet(s) PO QD 04/25/20 13 05/28/2013 Inactive alprazolam 0.5 mg tablet RxNorm: 683046 1 Tablet(s) PO BID May refill on 04/26/13 04/25/2013 06/23/2013 Inactive prn Celebrex 200 mg capsule RxNorm: 123619 1 Capsule(s) PO QD 04/16/2013 12/29/2013 Inactive alprazolam 0.5 mg tablet RxNorm: 677698 1 Tablet(s) PO BID May refill on 04/26/13 04/16/2013 04/24/2013 Inactive prn Soma 350 mg tablet RxNorm: 182496 1 Tablet(s) PO TID as needed for spasm 04/16/2013 No Stop Date Active Lasix 40 mg tablet RxNorm: 731363 1 Tablet(s) PO QAM s hould take potassium supplementation with this medication 04/16/2013 06/14/2013 Inactive clonidine 0.1 mg tablet RxNorm: 896665 1 Tablet(s) PO TID 04/16/2013 08/03/2013 Inactive replaces 0.2mg dose prednisone 20 mg tablet RxNorm: 792051 1 Tablet(s) PO BID 04/16/2013 04/20/2013 Inactive diclofenac sodium 75 mg tablet,delayed release RxNorm: 91232 8 1 Tablet(s) PO BID for pain 04/14/2013 05/13/2013 Inactive hydrocodone 10 mg-acetaminophen 325 mg tablet RxNorm: 444138 2 1-2 Tablet(s) PO QID as needed for severe pain 04/14/2013 No Stop Date Active Lasix 40 mg tablet RxNorm: 212319 1 Tablet(s) PO QAM s hould take potassium supplementation with this medication 03/31/2013 04/15/2013 Inactive Celebrex 200 mg capsule RxNorm: 363831 1 Capsule(s) PO QD 03/31/2013 04/15/2013 Inactive alprazolam 0.5 mg tablet RxNorm: 999666 1 Tablet(s) PO BID 03/28/20 13 04/15/2013 Inactive prn hydrocodone 10 mg-acetaminophen 325 mg tablet RxNorm: 031773 2 1-2 Tablet(s) PO QID as needed for severe pain 03/10/2013 No Stop Date Active metformin ER 500 mg 24 hr tablet,extended release RxNorm: 86 1018 1 Tablet(s) PO QD 03/06/2013 07/22/2013 Inactive clindamycin 300 mg capsule RxNorm: 396298 2 Capsule(s) PO TID 03/0503/14/2013 Inactive Zaroxolyn 2.5 mg tablet RxNorm: 282451 1 Tablet(s) PO QAM 03/05/2013 05/19/2015 Inactive amlodipine 10 mg tablet RxNorm: 778509 1 Tablet(s) PO QD 03/03/2013 0 05/25/2013 Inactive Norvasc 10 mg tablet RxNorm: 310639 1 Tablet(s) PO QD 02/28/201307/11 Inactive Celebrex 200 mg capsule RxNorm: 248193 1 Capsule(s) PO QD 02/28/2013 03/30/2013 Inactive diclofenac sodium 75 mg tablet,delayed release RxNorm: 64368 8 1 Tablet(s) PO BID for pain 02/14/2013 03/15/2013 Inactive Soma 350 mg tablet RxNorm: 725387 1 Tablet(s) PO TID as needed for spasm 02/14/2013 No Stop Date Active hydrocodone 10 mg-acetaminophen 325 mg tablet RxNorm: 537124 2 1-2 Tablet(s) PO QID as needed for severe pain 02/14/2013 No Stop Date Active Norvasc 10 mg tablet RxNorm: 968047 1 Tablet(s) PO QD 02/10/201302/09 Inactive Celebrex 200 mg capsule RxNorm: 216808 1 Capsule(s) PO QD 01/27/2013 01/26/2013 Inactive Premarin 1.25 mg tablet RxNorm: 636315 1-2 Tablet(s) PO QD 01/28/20 13 06/25/2013 Inactive alprazolam 0.5 mg tablet RxNorm: 070195 1 Tablet(s) PO BID 01/28/20 13 02/25/2013 Inactive prn amlodipine 5 mg tablet RxNorm: 358656 1 Tablet(s) PO QD 01/27/2013 Inactive Celebrex 200 mg capsule RxNorm: 292945 1 Capsule(s) PO QD 01/27/2013 02/27/2013 Inactive gabapentin 600 mg tablet RxNorm: 453683 1 Tablet(s) PO QHS 01/16/20 13 07/22/2013 Inactive Soma 350 mg tablet RxNorm: 312789 1 Tablet(s) PO TID as needed for spasm 01/15/2013 No Stop Date Active hydrocodone 10 mg-acetaminophen 325 mg tablet RxNorm: 702836 2 1-2 Tablet(s) PO QID as needed for severe pain 01/15/2013 No Stop Date Active Soma 350 mg tablet RxNorm: 763865 1 Tablet(s) PO TID as needed for spasm 01/13/2013 No Stop Date Active alprazolam 0.5 mg tablet RxNorm: 894394 1 Tablet(s) PO BID 12/31/19 13 01/26/2013 Inactive prn diclofenac sodium 75 mg tablet,delayed release RxNorm: 35584 8 1 Tablet(s) PO BID for pain 12/09/2012 01/07/2013 Inactive gabapentin 600 mg tablet RxNorm: 797993 1 Tablet(s) PO QHS 12/10/19 13 01/07/2013 Inactive hydrocodone 10 mg-acetaminophen 325 mg tablet RxNorm: 907545 2 1-2 Tablet(s) PO QID as needed for severe pain 12/02/2012 No Stop Date Active Levaquin 750 mg tablet RxNorm: 481583 1 Tablet(s) PO QD 11/21/2012 Inactive Singulair 10 mg tablet RxNorm: 734786 1 Tablet(s) PO QD 11/11/2012 Inactive clonidine 0.2 mg tablet RxNorm: 729668 1 Tablet(s) PO TID 11/11/2012 04/15/2013 Inactive alprazolam 0.5 mg tablet RxNorm: 011289 1 Tablet(s) PO BID 11/12/19 13 12/10/2012 Inactive prn Klor-Con 8 mEq tablet,extended release RxNorm: 359833 1 Tablet( s) PO BID 11/11/2012 03/04/2013 Inactive hydrocodone 10 mg-acetaminophen 325 mg tablet RxNorm: 145794 2 1-2 Tablet(s) PO QID as needed for severe pain 11/06/2012 No Stop Date Active alprazolam 0.5 mg tablet RxNorm: 135346 1 Tablet(s) PO BID 10/15/19 13 11/10/2012 Inactive prn hydrocodone-acetaminophen 10 mg-325 mg tablet RxNorm: 954035 2 1-2 Tablet(s) PO QID as needed for severe pain 10/10/2012 10/09/2012 Inactive allopurinol 300 mg tablet RxNorm: 299725 1 Tablet(s) PO QD 09/20/19 13 12/18/2012 Inactive alprazolam 0.5 mg tablet RxNorm: 553751 1 Tablet(s) PO BID 09/17/19 13 10/14/2012 Inactive prn hydrocodone-acetaminophen 10 mg-325 mg tablet RxNorm: 235253 2 1-2 Tablet(s) PO QID as needed for severe pain 08/22/2012 08/21/2012 Inactive Norvasc 10 mg tablet RxNorm: 101395 1 Tablet(s) PO QD 08/12/201201/10 Inactive Premarin 1.25 mg tablet RxNorm: 810917 1-2 Tablet(s) PO QD 07/30/20 12 12/26/2012 Inactive alprazolam 0.5 mg tablet RxNorm: 764120 1 Tablet(s) PO BID 07/29/20 12 08/27/2012 Inactive prn Klor-Con 8 mEq tablet,extended release RxNorm: 587897 1 Tablet( s) PO BID 07/29/2012 11/10/2012 Inactive hydrocodone-acetaminophen 10 mg-325 mg tablet RxNorm: 560087 2 1-2 Tablet(s) PO QID as needed for severe pain 07/29/2012 No Stop Date Active Premarin 1.25 mg tablet RxNorm: 714880 1-2 Tablet(s) PO QD 07/29/20 12 07/29/2012 Inactive clonidine 0.2 mg tablet RxNorm: 266447 1 Tablet(s) PO TID 07/29/2012 10/28/2012 Inactive ketorolac 10 mg tablet RxNorm: 226944 1 Tablet(s) PO QID prn he adache 07/18/2012 No Stop Date Active hydrocodone-acetaminophen 10 mg-325 mg tablet RxNorm: 097596 2 1-2 Tablet(s) PO QID as needed for severe pain 07/03/2012 No Stop Date Active amlodipine 5 mg tablet RxNorm: 461769 1 Tablet(s) PO QD 07/02/2012 Inactive allopurinol 300 mg tablet RxNorm: 562781 1 Tablet(s) PO QD 07/02/20 12 09/19/2012 Inactive Celebrex 200 mg capsule RxNorm: 311599 1 Capsule(s) PO QD for j oint pain 06/26/2012 10/23/2012 Inactive diclofenac sodium 75 mg tablet,delayed release RxNorm: 65549 8 1 Tablet(s) PO BID for pain 06/19/2012 09/16/2012 Inactive hydrocodone-acetaminophen 10 mg-325 mg tablet RxNorm: 895105 2 1-2 Tablet(s) PO QID as needed for severe pain 06/10/2012 No Stop Date Active alprazolam 0.5 mg tablet RxNorm: 166668 1 Tablet(s) PO BID 06/03/20 12 07/02/2012 Inactive prn ketorolac 10 mg tablet RxNorm: 164019 1 Tablet(s) PO Q8H 05/27/2012 0 01/21/2019 Inactive as needed for headache hydrocodone-acetaminophen 10 mg-325 mg tablet RxNorm: 293143 2 1-2 Tablet(s) PO QID as needed for severe pain 05/15/2012 No Stop Date Active allopurinol 300 mg tablet RxNorm: 295326 1 Tablet(s) PO QD 05/14/20 12 06/12/2012 Inactive allopurinol 300 mg tablet RxNorm: 609096 1 Tablet(s) PO QD 05/14/20 12 05/13/2012 Inactive amlodipine 5 mg tablet RxNorm: 949513 1 Tablet(s) PO QD 05/01/2012 Inactive amlodipine 5 mg Tab RxNorm: 925920 1 Tablet(s) PO QD 05/01/201204/30 Inactive Celebrex 200 mg capsule RxNorm: 420725 1 Capsule(s) PO QD for j oint pain 05/01/2012 06/25/2012 Inactive Singulair 10 mg tablet RxNorm: 133962 1 Tablet(s) PO QD 05/01/2012 Inactive alprazolam 0.5 mg tablet RxNorm: 882936 1 Tablet(s) PO BID 05/01/20 12 05/30/2012 Inactive prn Celebrex 200 mg Cap RxNorm: 981983 1 Capsule(s) PO QD for joint radu n 05/01/2012 04/30/2012 Inactive hydrocodone-acetaminophen 10 mg-325 mg tablet RxNorm: 787787 2 1-2 Tablet(s) PO QID as needed for severe pain 04/19/2012 No Stop Date Active Lasix 40 mg tablet RxNorm: 218918 1 Tablet(s) PO QAM s hould take potassium supplementation with this medication 04/05/2012 06/03/2012 Inactive alprazolam 0.5 mg Tab RxNorm: 980145 1 Tablet(s) PO BID 04/05/2012 Inactive prn hydrocodone-acetaminophen 10 mg-325 mg Tab RxNorm: 3919080 1-2 Tablet(s) PO QID as needed for severe pain 03/25/2012 03/24/2012 Inactive clonidine 0.2 mg Tab RxNorm: 897728 1 Tablet(s) PO TID 03/08/2012 Inactive alprazolam 0.5 mg Tab RxNorm: 906199 1 Tablet(s) PO BID 03/08/2012 Inactive prn Soma 350 mg tablet RxNorm: 787943 1 Tablet(s) PO TID for spasm 02/0903/18/2012 Inactive clonidine 0.2 mg tablet RxNorm: 607065 1 Tablet(s) PO TID 03/08/2012 07/28/2012 Inactive Celebrex 200 mg Cap RxNorm: 093108 1 Capsule(s) PO QD for joint radu n 03/01/2012 04/29/2012 Inactive amlodipine 5 mg Tab RxNorm: 138863 1 Tablet(s) PO QD 02/26/201202/24 Inactive amlodipine 5 mg Tab RxNorm: 448010 1 Tablet(s) PO QD 02/26/201204/25 Inactive Bactroban 2 % Ointment RxNorm: 640701 Application TOP QID to sores 02/23/2012 No Stop Date Active amlodipine 2.5 mg tablet RxNorm: 588217 1 Tablet(s) PO QHS 02/20/2002/25/2012 Inactive doxycycline hyclate 100 mg Cap RxNorm: 9424229 1 Capsule(s) PO BID 02/20/2012 02/29/2012 Inactive hydrocodone-acetaminophen 10 mg-325 mg Tab RxNorm: 3577053 1-2 T ablet(s) PO QID 02/08/2012 No Stop Date Active alprazolam 0.5 mg Tab RxNorm: 253517 1 Tablet(s) PO BID 02/08/2012 Inactive prn Singulair 10 mg Tab RxNorm: 218947 1 Tablet(s) PO QD 02/08/201204/30 Inactive Soma 350 mg Tab RxNorm: 983316 1 Tablet(s) PO TID for spasm 012 03/07/2012 Inactive Soma 350 mg Tab RxNorm: 613896 1 Tablet(s) PO TID for spasm 012 02/05/2012 Inactive diclofenac sodium 75 mg tablet,delayed release RxNorm: 93704 8 1 Tablet(s) PO BID for pain 02/01/2012 03/18/2012 Inactive Celebrex 200 mg Cap RxNorm: 131655 1 Capsule(s) PO QD for joint radu n 01/30/2012 02/28/2012 Inactive Lasix 40 mg Tab RxNorm: 198528 1 Tablet(s) PO QAM 01/24/2012 03/18/20 12 Inactive potassium chloride ER 20 mEq tablet,extended release(part/cr yst) RxNorm: 037864 2 Tablet(s) PO BID 01/24/2012 02/22/2012 Inactive alprazolam 0.5 mg Tab RxNorm: 100124 1 Tablet(s) PO BID 01/11/2012 Inactive prn hydrocodone-acetaminophen 10 mg-325 mg Tab RxNorm: 7815821 1-2 T ablet(s) PO QID 01/11/2012 No Stop Date Active Ambien 10 mg Tab RxNorm: 359630 1 Tablet(s) PO QHS 01/11/2012 012 Inactive Klor-Con 8 mEq Tab RxNorm: 151189 1 Tablet(s) PO BID 01/11/201201/22 Inactive diclofenac sodium 75 mg Tab, Delayed Release RxNorm: 365277 1 Tablet(s) PO BID for pain 01/10/2012 01/31/2012 Inactive Ambien 10 mg Tab RxNorm: 241842 1 Tablet(s) PO QHS 12/11/2011 012 Inactive alprazolam 0.5 mg Tab RxNorm: 773934 1 Tablet(s) PO BID 12/11/2011 Inactive prn hydrocodone 10 mg-acetaminophen 325 mg tablet RxNorm: 756957 1-2 Tablet(s) PO TID 11/28/2011 No Stop Date Active as needed for pa in - Previous quantity #240, will start dosing for #180 in April 2011 per Doctor Td. Ambien 10 mg Tab RxNorm: 329648 1 Tablet(s) PO QHS 11/09/2011 012 Inactive alprazolam 0.5 mg Tab RxNorm: 082125 1 Tablet(s) PO BID 11/09/2011 Inactive prn hydrocodone-acetaminophen 10 mg-325 mg Tab RxNorm: 6826481 1-2 T ablet(s) PO TID 11/06/2011 No Stop Date Active as needed for pain - Previous quantity #240, will start dosing for #180 in April 2011 per Doctor Td. Singulair 10 mg Tab RxNorm: 174834 1 Tablet(s) PO QD 10/13/201110/12 Inactive Singulair 10 mg Tab RxNorm: 386121 1 Tablet(s) PO QD 10/13/201102/06 Inactive hydrocodone-acetaminophen 10 mg-325 mg Tab RxNorm: 3568876 1-2 T ablet(s) PO TID 10/10/2011 10/09/2011 Inactive as needed for pain - Previous quantity #240, will start dosing for #180 in April 2011 per Doctor Td. hydrocodone-acetaminophen 10 mg-325 mg Tab RxNorm: 6166209 1-2 T ablet(s) PO TID 10/09/2011 No Stop Date Active as needed for pain - Previous quantity #240, will start dosing for #180 in April 2011 per Doctor Td. Klor-Con 8 mEq Tab RxNorm: 119979 1 Tablet(s) PO BID 10/02/201101/09 Inactive triamterene 75 mg-hydrochlorothiazide 50 mg tablet RxNorm: 3 81423 1 Tablet(s) PO QD 09/14/2011 03/06/2013 Inactive Ambien 10 mg Tab RxNorm: 927939 1 Tablet(s) PO QHS 09/14/2011 012 Inactive hydrocodone-acetaminophen 10 mg-325 mg Tab RxNorm: 7220290 1-2 T ablet(s) PO TID 09/14/2011 No Stop Date Active as needed for pain - Previous quantity #240, will start dosing for #180 in April 2011 per Doctor Td. alprazolam 0.5 mg Tab RxNorm: 818897 1 Tablet(s) PO BID 09/14/2011 Inactive prn Zithromax 500 mg Tab RxNorm: 694222 1 Tablet(s) PO QD 09/13/201109/10 Inactive prednisone 20 mg Tab RxNorm: 260718 1 Tablet(s) PO BID 08/31/2011 Inactive Ambien 10 mg Tab RxNorm: 041493 1 Tablet(s) PO QHS 08/17/2011 011 Inactive hydrocodone-acetaminophen 10 mg-325 mg Tab RxNorm: 2976619 1-2 T ablet(s) PO TID 08/17/2011 No Stop Date Active as needed for pain - Previous quantity #240, will start dosing for #180 in April 2011 per Doctor Td. clonidine 0.2 mg Tab RxNorm: 055863 1 Tablet(s) PO TID 08/17/201112/2011 Inactive Ambien 10 mg Tab RxNorm: 408911 1 Tablet(s) PO QHS 08/17/2011 019 Inactive alprazolam 0.5 mg Tab RxNorm: 320922 1 Tablet(s) PO BID 08/17/2011 Inactive prn hydrocodone-acetaminophen 10 mg-325 mg Tab RxNorm: 6708787 1-2 T ablet(s) PO TID 08/17/2011 08/16/2011 Inactive as needed for pain - Previous quantity #240, will start dosing for #180 in April 2011 per Doctor Td. Singulair 10 mg Tab RxNorm: 839334 1 Tablet(s) PO QD 08/17/201108/16 Inactive Klor-Con 8 mEq Tab RxNorm: 658740 1 Tablet(s) PO QD 08/17/20112011 Inactive alprazolam 0.5 mg Tab RxNorm: 857215 1 Tablet(s) PO BID 07/20/2011 Inactive prn Ambien 10 mg Tab RxNorm: 673312 1 Tablet(s) PO QHS 07/20/2011 012 Inactive Singulair 10 mg Tab RxNorm: 655111 1 Tablet(s) PO QD 07/20/201107/19 Inactive Premarin 1.25 mg tablet RxNorm: 841968 2 Tablet(s) PO QD 07/20/2011 0 01/21/2019 Inactive Premarin 1.25 mg tablet RxNorm: 726320 1-2 Tablet(s) PO QD 07/20/20 11 12/16/2011 Inactive Premarin 1.25 mg Tab RxNorm: 568667 1-2 Tablet(s) PO QD 07/06/2011 Inactive alprazolam 0.5 mg Tab RxNorm: 898445 1 Tablet(s) PO BID 06/22/2011 Inactive prn alprazolam 0.5 mg Tab RxNorm: 268229 1 Tablet(s) PO BID 06/22/2011 Inactive prn Premarin 1.25 mg Tab RxNorm: 810233 1 Tablet(s) PO QD m ay do 90 day fill if desired 06/22/2011 07/05/2011 Inactive hydrocodone-acetaminophen 10 mg-325 mg Tab RxNorm: 1418894 1-2 T ablet(s) PO TID 06/22/2011 No Stop Date Active as needed for pain - Previous quantity #240, will start dosing for #180 in April 2011 per Doctor Td. clonidine 0.2 mg Tab RxNorm: 079951 1 Tablet(s) PO TID 05/25/201103/2011 Inactive triamterene-hydrochlorothiazide 75 mg-50 mg Tab RxNorm: 3108 18 1 Tablet(s) PO QD 05/25/2011 09/13/2011 Inactive alprazolam 0.5 mg Tab RxNorm: 358760 1 Tablet(s) PO BID 05/25/2011 Inactive prn hydrocodone-acetaminophen 10 mg-325 mg Tab RxNorm: 3226896 1-2 T ablet(s) PO TID 05/25/2011 No Stop Date Active as needed for pain - Previous quantity #240, will start dosing for #180 in April 2011 per Doctor Td. Robaxin-750 750 mg Tab RxNorm: 144805 2 Tablet(s) PO QHS 05/22/2011 1 Inactive prn spasm hydrocodone-acetaminophen 10 mg-325 mg Tab RxNorm: 7785415 1-2 T ablet(s) PO TID 04/26/2011 No Stop Date Active as needed for pain - Previous quantity #240, will start dosing for #180 in April 2011 per Doctor Td. alprazolam 0.5 mg Tab RxNorm: 392157 1 Tablet(s) PO BID 04/25/2011 Inactive prn Klor-Con 8 mEq Tab RxNorm: 557246 1 Tablet(s) PO QD 03/30/20112010 Inactive Klor-Con 8 mEq Tab RxNorm: 767841 1 Tablet(s) PO QD 03/29/20112010 Inactive hydrocodone-acetaminophen 10 mg-325 mg Tab RxNorm: 1649472 1-2 T ablet(s) PO TID 03/20/2011 04/25/2011 Inactive as needed for pain - Previous quantity #240, will start dosing for #180 in April 2011 per Doctor Td. alprazolam 0.5 mg Tab RxNorm: 683272 1 Tablet(s) PO BID prn 011 03/30/2011 Inactive Ambien 10 mg Tab RxNorm: 317669 1 Tablet(s) PO QHS 03/01/2011 011 Inactive cyclobenzaprine 10 mg Tab RxNorm: 058046 1 Tablet(s) PO TID 011 03/18/2012 Inactive cyclobenzaprine 10 mg Tab RxNorm: 146149 1 Tablet(s) PO TID 011 01/08/2011 Inactive cyclobenzaprine 10 mg Tab RxNorm: 693434 1 Tablet(s) PO TID 011 12/20/2010 Inactive terbinafine 250 mg Tab RxNorm: 049547 1 Tablet(s) PO QD 12/12/2010 Inactive triamterene-hydrochlorothiazide 75 mg-50 mg Tab RxNorm: 3108 18 1 Tablet(s) PO QD 12/07/2010 01/12/2020 Inactive Klor-Con 8 8 mEq Tab RxNorm: 997555 1 Tablet(s) PO QD 12/07/201001/08 Inactive Premarin 1.25 mg Tab RxNorm: 856770 2 Tablet(s) PO QD 12/07/201001/08 Inactive clonidine 0.2 mg Tab RxNorm: 099163 1 Tablet(s) PO TID 12/07/2010 Inactive hydrocodone-acetaminophen 7.5 mg-650 mg Tab RxNorm: 987896 1 Ta blet(s) PO Q4H 12/05/2010 01/21/2019 Inactive hydrocodone-acetaminophen 7.5 mg-650 mg Tab RxNorm: 315546 1 Ta blet(s) PO Q4H 10/26/2010 11/14/2010 Inactive hydrocodone-acetaminophen 7.5 mg-650 mg Tab RxNorm: 084524 1 Ta blet(s) PO Q4H 10/13/2010 10/25/2010 Inactive hydrocodone-acetaminophen 7.5 mg-650 mg Tab RxNorm: 803922 1 Ta blet(s) PO Q4H 09/15/2010 09/12/2010 Inactive alprazolam 0.5 mg Tab RxNorm: 489090 1 Tablet(s) PO BID prn 011 09/12/2010 Inactive terbinafine 250 mg Tab RxNorm: 634739 1 Tablet(s) PO QD 09/05/2010 Inactive hydrocodone-acetaminophen 7.5 mg-650 mg Tab RxNorm: 028994 1 Ta blet(s) PO Q4H 08/29/2010 09/17/2010 Inactive alprazolam 0.5 mg Tab RxNorm: 669979 1 Tablet(s) PO BID prn 010 09/27/2010 Inactive alprazolam 0.5 mg Tab RxNorm: 020925 1 Tablet(s) PO BID prn 010 09/06/2010 Inactive Klor-Con 8 mEq Tab RxNorm: 414352 1 Tablet(s) PO QD 08/08/20102010 Inactive hydrocodone-acetaminophen 7.5 mg-650 mg Tab RxNorm: 977170 1 Ta blet(s) PO Q4H 08/08/2010 08/27/2010 Inactive Ambien 10 mg Tab RxNorm: 938069 1 Tablet(s) PO QHS 08/08/2010 Inactive clonidine 0.2 mg Tab RxNorm: 870934 1 Tablet(s) PO TID 08/08/2010 Inactive Premarin 1.25 mg Tab RxNorm: 224251 2 Tablet(s) PO QD 08/08/201009/12 Inactive Ambien 10 mg Tab RxNorm: 774138 1 Tablet(s) PO QHS 07/18/2010 Inactive alprazolam 0.5 mg Tab RxNorm: 803909 1 Tablet(s) PO BID prn 010 08/07/2010 Inactive hydrocodone-acetaminophen 7.5 mg-650 mg Tab RxNorm: 694069 1 Ta blet(s) PO Q4H 07/12/2010 07/31/2010 Inactive clonidine 0.2 mg Tab RxNorm: 575506 1 Tablet(s) PO TID 06/20/2010 Inactive terbinafine 250 mg Tab RxNorm: 760035 1 Tablet(s) PO QD 05/24/2010 Inactive Clonidine 0.2 mg Tab RxNorm: 039306 1 Tablet(s) PO TID 05/24/201006/2010 Inactive Ambien 10 mg Tab RxNorm: 997447 1 Tablet(s) PO QHS 05/24/2010 Inactive alprazolam 0.5 mg Tab RxNorm: 375477 1 Tablet(s) PO BID 05/24/2010 Inactive Klor-Con 8 mEq Tab RxNorm: 203546 1 Tablet(s) PO QD 05/24/20102009 Inactive alprazolam 0.5 mg Tab RxNorm: 768662 2 Tablet(s) PO QD prn 05/24/2007/17/2010 Inactive triamterene-hydrochlorothiazide 75 mg-50 mg Tab RxNorm: 3108 18 1 Tablet(s) PO QD 05/24/2010 11/19/2010 Inactive Ambien 10 mg Tab RxNorm: 831178 1 Tablet(s) PO QHS 05/23/2010 09/13/2 010 Inactive Alprazolam 0.5 mg Tab RxNorm: 875654 2 Tablet(s) PO QD prn 05/23/2005/23/2010 Inactive Premarin 1.25 mg Tab RxNorm: 145190 2 Tablet(s) PO QD 05/19/201007/12 Inactive Hydrocodone-Acetaminophen 7.5 mg-650 mg Tab RxNorm: 202229 1 Ta blet(s) PO Q4H 05/19/2010 03/20/2011 Inactive Prednisone 20 mg Tab RxNorm: 810548 1 Tablet(s) PO BID 05/17/2010 Inactive Prednisone 20 mg Tab RxNorm: 532279 1 Tablet(s) PO BID 05/06/201001/2010 Inactive Premarin 1.25 mg Tab RxNorm: 386741 Tablet(s) PO 2 M-W-F, and 1 Is-Fa-Xtj-Sun 05/05/2010 08/02/2010 Inactive Premarin 1.25 mg Tab RxNorm: 938396 Tablet(s) PO 2 M-W-F, and 1 Je-St-Qhb-Sun 05/04/2010 05/04/2010 Inactive Premarin 1.25 mg Tab RxNorm: 800438 Tablet(s) PO 2 M-W-F, and 1 Mw-Ii-Sik-Sun 05/04/2010 05/03/2010 Inactive Prednisone 20 mg Tab RxNorm: 138732 1 Tablet(s) PO BID 04/27/2010 Inactive Alprazolam 0.5 mg Tab RxNorm: 665802 2 Tablet(s) PO QD prn 04/26/20 10 05/22/2010 Inactive Clindamycin 300 mg Cap RxNorm: 319442 2 Capsule(s) PO TID 04/05/2010 04/18/2010 Inactive Terbinafine 250 mg Tab RxNorm: 557916 1 Tablet(s) PO QD 04/04/2010 Inactive Hydrocodone-Acetaminophen 7.5 mg-650 mg Tab RxNorm: 716156 1 Ta blet(s) PO Q4H 03/30/2010 04/18/2010 Inactive Avelox 400 mg Tab RxNorm: 160305 1 Tablet(s) PO QD 03/09/2010 010 Inactive Hydrocodone-Acetaminophen 7.5 mg-650 mg Tab RxNorm: 322056 1 Ta blet(s) PO Q4H 03/08/2010 03/27/2010 Inactive Alprazolam 0.5 mg Tab RxNorm: 421314 2 Tablet(s) PO QD prn 03/08/20 10 04/25/2010 Inactive Klor-Con 8 mEq Tab RxNorm: 905324 1 Tablet(s) PO QD when takes lasi x 03/07/2010 09/29/2019 Inactive Premarin 1.25 mg Tab RxNorm: 972429 1 Tablet(s) PO QD 03/03/201003/11 Inactive Alprazolam 0.5 mg Tab RxNorm: 940977 1 Tablet(s) PO BID PRN 010 No Stop Date Active triamterene-hydrochlorothiazide 75 mg-50 mg Tab RxNorm: 3108 18 1 Tablet(s) PO QD 02/09/2010 02/03/2011 Inactive Hydrocodone-Acetaminophen 10 mg-750 mg Tab RxNorm: 692717 1 Tablet(s) PO Q4H PRN 02/09/2010 03/20/2011 Inactive Clonidine 0.2 mg Tab RxNorm: 823744 1 Tablet(s) PO TID 01/13/201009/2009 Inactive Alprazolam 0.5 mg Tab RxNorm: 623819 1 Tablet(s) PO BID PRN 010 01/12/2010 Inactive Hydrocodone-Acetaminophen 10 mg-750 mg Tab RxNorm: 325305 1 Tablet(s) PO Q4H PRN 01/13/2010 01/12/2010 Inactive ANGELIQ 1 mg-0.5 mg Tab RxNorm: 0417131 1 Tablet(s) PO QD 12/27/2009 01/23/2010 Inactive Lasix 40 mg Tab RxNorm: 526444 1 Tablet(s) PO QAM 12/14/2009 06/11/20 10 Inactive Vitamin B12 1000mcg Tablet RxNorm: 1 Tablet(s) PO QD No Start Date Active cyclobenzaprine 10 mg tablet RxNorm: 530100 1 Tablet(s) PO TID as needed DO NOT USE WITH BACLOFEN No Start Date Active Vitamin D 5,000 unit Tab RxNorm: 1 Tablet(s) PO QD No Start Date Active vitamin E (dl, acetate) 400 unit Cap RxNorm: 752334 1 Capsule(s ) PO QD No Start Date Active Benadryl 25 mg Cap RxNorm: 1590669 Capsule(s) PO PRN No Start Date Inactive amitriptyline 100 mg tablet RxNorm: 683166 1 Tablet(s) PO QHS No St art Date 11/27/2016 Inactive Zithromax Z-Dustin 250 mg tablet RxNorm: 144821 Tablet(s) PO as di rected No Start Date 07/22/2013 Inactive Klor-Con 8 mEq tablet,extended release RxNorm: 808214 1 Tablet( s) PO BID No Start Date 07/28/2012 Inactive scopolamine 1.5 mg 72 hr Transderm Patch RxNorm: 028913 Application TD Q72H for motion sickness No Start Date 05/25/2013 Inactive Klonopin 1 mg tablet RxNorm: 418492 1-2 Tablet(s) PO QHS as nee ded for sleep No Start Date 06/20/2015 Inactive Klor-Con M20 mEq tablet,extended release RxNorm: 581070 2 Tablet(s) PO BID to use with lasix No Start Date 11/11/2013 Inactive Bystolic 5 mg tablet RxNorm: 668467 1 Tablet(s) PO QD No Start Date 1 Inactive Bystolic 10 mg tablet RxNorm: 554946 1 Tablet(s) PO BID No Start Da te 07/06/2015 Inactive Premarin 1.25 mg Tab RxNorm: 648363 Tablet(s) PO 2 --, and 1 Ni-Dh-Cuu-Sun No Start Date 05/03/2010 Inactive baclofen 20 mg tablet RxNorm: 077348 1 Tablet(s) PO TID as needed for muscle spasm No Start Date 07/22/2015 Inactive hydrocodone-acetaminophen 7.5 mg-650 mg Tab RxNorm: 626306 1 Tablet(s) PO Q4H as needed for pain No Start Date 03/20/2011 Inactive albuterol sulfate 1.25 mg/3 mL Neb Solution RxNorm: 980899 1 Unit Dose INH Q4H 2boxes No Start Date 09/06/2015 Inactive Butrans 20 mcg/hour Transderm Patch RxNorm: 767319 1 TD WEEKLY apply to skin weekly after removing previous. No Start Date 07/22/2013 Inactive Medrol (Dustin) 4 mg tablets in a dose pack RxNorm: 803009 Tablet(s) PO As Directed No Start Date 07/30/2016 Inactive hydrocodone-acetaminophen 10 mg-325 mg Tab RxNorm: 8647515 1-2 Tablet(s) PO TID as needed for pain No Start Date 03/19/2011 Inactive Klonopin 1 mg tablet RxNorm: 022971 1 Tablet(s) PO QHS No Start Date 02/28/2016 Inactive honey topical RxNorm: topical No Start Date 06/16/2018 Inactive Clonidine 0.2 mg Tab RxNorm: 888932 1 Tablet(s) PO TID No Start Date 01/12/2010 Inactive ketorolac 10 mg tablet RxNorm: 889592 1 Tablet(s) PO Q8H No Start D ate 03/18/2012 Inactive as needed for headache Singulair 10 mg Tab RxNorm: 929489 1 Tablet(s) PO QD No Start Date Inactive Premarin 1.25 mg Tab RxNorm: 003214 1 Tablet(s) PO QD No Start Date 1 Inactive Flonase 50 mcg/Actuation Nasal [place] RxNorm: 8127825 1 [place] CECELIA AL BID No Start Date 03/18/2012 Inactive Terbinafine 250 mg Tab RxNorm: 715685 1 Tablet(s) PO QD No Start Da te 04/03/2010 Inactive Fexofenadine 180 mg Tab RxNorm: 0798025 1 Tablet(s) PO QD No Start Date 09/06/2015 Inactive baclofen 20 mg tablet RxNorm: 752375 1 Tablet(s) PO TID as needed N o Start Date 05/25/2014 Inactive Diovan 160 mg Tab RxNorm: 777998 1 Tablet(s) PO QD No Start Date 09/12 Inactive mupirocin 2 % topical ointment RxNorm: 251527 1 Application TOP QID No Start Date 04/25/2016 Inactive ZOFRAN ODT 4 mg Tab, Rapid Dissolve RxNorm: 380512 1 Tablet(s) PO Q4H No Start Date 03/18/2012 Inactive as needed for nausea and vomiting Alprazolam 0.5 mg Tab RxNorm: 634769 1 Tablet(s) PO BID PRN No Star t Date 01/12/2010 Inactive cyclobenzaprine 10 mg tablet RxNorm: 761264 1 Tablet(s) PO TID as needed for muscle spasm No Start Date 10/08/2017 Inactive Albuterol 0.083% Aerosol Solution RxNorm: 1 Appl ication INH Q4H Use one ampule every 4 hrs with nebulizer as needed for shortness of breath. No Start Date 10/09/2010 Inactive lorazepam 1 mg tablet RxNorm: 808380 1 1/2 Tablet(s) PO QHS No Star t Date 02/02/2016 Inactive Melatonin 3 mg Tab RxNorm: 032512 Tablet(s) PO PRN No Start Date 07/11 Inactive Medrol (Dustin) 4 mg Tabs in a Dose Pack RxNorm: 828958 Tablet(s) PO N o Start Date 11/28/2010 Inactive lorazepam 1 mg tablet RxNorm: 182202 1 Tablet(s) PO QHS as need ed for sleep No Start Date 01/30/2016 Inactive hydrocodone-acetaminophen 10 mg-325 mg Tab RxNorm: 8544152 1-2 Tablet(s) PO QID as needed for severe pain No Start Date 03/24/2012 Inactive celecoxib 200 mg capsule RxNorm: 497197 1 Capsule(s) PO BID No Star t Date 06/26/2019 Inactive amlodipine 5 mg-benazepril 20 mg capsule RxNorm: 110565 1 Capsu le(s) PO QD No Start Date 04/10/2017 Inactive Bystolic 20 mg tablet RxNorm: 920765 1/2 Tablet(s) PO QAM No Start Date 01/23/2016 Inactive Bystolic 20 mg tablet RxNorm: 819298 1 Tablet(s) PO QAM No Start Da te 04/25/2016 Inactive Ambien 10 mg Tab RxNorm: 841411 1 Tablet(s) PO QHS No Start Date 05/11 Inactive Klor-Con 8 mEq Tab RxNorm: 192907 1 Tablet(s) PO QD when takes lasix No Start Date 03/06/2010 Inactive aspirin 81 mg tablet RxNorm: 559194 1 Tablet(s) PO QD No Start Date 0 01/29/2018 Inactive hydrocodone-acetaminophen 10 mg-325 mg Tab RxNorm: 2855570 1-2 T ablet(s) PO QID No Start Date 01/10/2012 Inactive Bystolic 10 mg tablet RxNorm: 958792 1 Tablet(s) PO QAM take one daily in the morning. No Start Date 05/28/2013 Inactive nystatin 100,000 unit/mL Oral Susp RxNorm: 717824 5 Milliliter( s) PO QID No Start Date 03/18/2012 Inactive swish and spit scopolamine 1.5 mg 72 hr Transderm Patch RxNorm: 018885 1 Unit Dose TD Q72H for motion sickness No Start Date 12/23/2013 Inactive Hydrocodone-Acetaminophen 10 mg-750 mg Tab RxNorm: 000654 1 Tablet(s) PO Q4H PRN No Start Date 01/12/2010 Inactive Soma 350 mg tablet RxNorm: 427915 1 Tablet(s) PO TID as needed for spasm No Start Date 01/12/2013 Inactive baclofen 10 mg tablet RxNorm: 242107 1 Tablet(s) PO TID as needed for muscle spasm No Start Date 09/18/2019 Inactive Soma 350 mg Tab RxNorm: 308221 1 Tablet(s) PO TID for spasm No Star t Date 01/31/2012 Inactive Co Q-10 400 mg capsule RxNorm: 893723 1 Capsule(s) PO QD No Start D ate 01/21/2019 Inactive nystatin 100,000 unit/gram topical cream RxNorm: 890506 Applica tion TOP BID No Start Date 03/22/2015 Inactive Exforge 5 mg-160 mg Tab RxNorm: 530787 1 Tablet(s) PO QD No Start D ate 10/09/2010 Inactive Hydrocodone-Acetaminophen 7.5 mg-650 mg Tab RxNorm: 471849 1 Ta blet(s) PO Q4H No Start Date 03/07/2010 Inactive Robaxin-750 750 mg Tab RxNorm: 292608 1-2 Tablet(s) PO TID prn spasm No Start Date 05/21/2011 Inactive amlodipine 5 mg tablet RxNorm: 605479 1 Tablet(s) PO QHS No Start D ate 09/29/2015 Inactive oxycodone-acetaminophen 10 mg-325 mg tablet RxNorm: 5584463 1-2 Tablet(s) PO Q6H No Start Date 06/16/2018 Inactive Triamterene-Hydrochlorothiazide 75 mg-50 mg Tab RxNorm: 3108 18 1 Tablet(s) PO QD No Start Date 02/08/2010 Inactive Alprazolam 0.5 mg Tab RxNorm: 954547 2 Tablet(s) PO QD prn No Start Date 03/07/2010 Inactive Bystolic 20 mg tablet RxNorm: 688756 1 Tablet(s) PO QAM No Start Da te 08/17/2015 Inactive ketorolac 10 mg tablet RxNorm: 851824 1 Tablet(s) PO QID prn he adache No Start Date 07/17/2012 Inactive acyclovir 800 mg Tab RxNorm: 441390 1 Tablet(s) PO BID No Start Date 03/18/2012 Inactive duloxetine 60 mg capsule,delayed release RxNorm: 609569 1 Capsu le(s) PO QD No Start Date 09/29/2015 Inactive Norvasc 5 mg tablet RxNorm: 270394 1 Tablet(s) PO QHS No Start Date 1 10/18/2014 Inactive promethazine 25 mg tablet RxNorm: 690672 1 Tablet(s) PO Q8H use sparingly No Start Date 07/22/2013 Inactive alprazolam 0.5 mg tablet RxNorm: 569187 3 Tablet(s) PO QHS No Start Date 06/06/2015 Inactive Lunesta 3 mg tablet RxNorm: 966289 1 Tablet(s) PO QHS No Start Date 0 09/20/2017 Inactive hydrocodone-acetaminophen 10 mg-325 mg Tab RxNorm: 5187175 1-2 Tablet(s) PO TID as needed for pain No Start Date 12/10/2011 Inactive Coricidin HBP Cough & Cold 4 mg-30 mg Tab RxNorm: 3395553 Tablet (s) PO PRN No Start Date 10/09/2010 Inactive Bactroban 2 % Ointment RxNorm: 406088 Application TOP QID to so res No Start Date 02/22/2012 Inactive Flonase 50 mcg/actuation Nasal [place] RxNorm: 723104 2 [place] CECEL[place] AL QHS No Start Date 03/03/2014 Inactive Medication Administered No Medication Administered data Immunizations Vaccine Codes Date Status Tetanus, Diptheria, Pertussis CVX: 115 02/27/2014 Results Observation Observation Code Item Item Code Result Date S ervice Location MEAN GLUC 9502547 Calc Mean Gluc 209 mg/dL 02/12/2020 Unkn own GLYCOSYLATED HEMOGLOBIN TEST 75836 Hgb A1c 21796-0 8.9 % 0 02/12/2020 Unknown GFR CALC 8253574 GFR Non Afr Amr >60 mL/min 02/12/2020 Un known GFR CALC 1194409 GFR Afr Amr >60 mL/min 02/12/2020 Unknow n COMPREHENSIVE METABOLIC 71253 AST 27 U/L 2019 Unknown COMPREHENSIVE METABOLIC 53030 ALT 16 U/L 2019 Unknown COMPREHENSIVE METABOLIC 04126 BUN 22 mg/dL 2019 Unknown COMPREHENSIVE METABOLIC 89818 ALBUMIN 3.9 g/dL 2019 Unknown COMPREHENSIVE METABOLIC 71601 CHLORIDE 98 mmol/L 2019 Unknown COMPREHENSIVE METABOLIC 97389 Bili Total 0.5 mg/dL 02/11 Unknown COMPREHENSIVE METABOLIC 57960 ALK PHOS 72 U/L 2019 Unknown COMPREHENSIVE METABOLIC 21503 SODIUM 137 mmol/L 02/11 Unknown COMPREHENSIVE METABOLIC 67811 CREATININE 0.96 mg/dL 12/2019 Unknown COMPREHENSIVE METABOLIC 84595 CALCIUM 9.1 mg/dL 2019 Unknown COMPREHENSIVE METABOLIC 08046 POTASSIUM 4.6 mmol/L 02/11 Unknown COMPREHENSIVE METABOLIC 53295 Total Protein 6.5 g/dL Unknown COMPREHENSIVE METABOLIC 58704 Glucose 129 mg/dL 2019 Unknown COMPREHENSIVE METABOLIC 92280 Bicarbonate 31 mmol/L 12/2019 Unknown COMPREHENSIVE METABOLIC 43029 AGAP 8 mmol/L 2019 Unknown COMPREHENSIVE METABOLIC 11112 AST 15 U/L 2019 Unknown COMPREHENSIVE METABOLIC 70996 ALT 13 U/L 2019 Unknown COMPREHENSIVE METABOLIC 38353 BUN 12 mg/dL 2019 Unknown COMPREHENSIVE METABOLIC 35854 ALBUMIN 3.9 g/dL 2019 Unknown COMPREHENSIVE METABOLIC 76654 CHLORIDE 97 mmol/L 2019 Unknown COMPREHENSIVE METABOLIC 82976 Bili Total 0.4 mg/dL 09/29 Unknown COMPREHENSIVE METABOLIC 49229 ALK PHOS 130 U/L 2019 Unknown COMPREHENSIVE METABOLIC 23377 SODIUM 136 mmol/L 09/29 Unknown COMPREHENSIVE METABOLIC 93969 CREATININE 0.92 mg/dL 09/11 Unknown COMPREHENSIVE METABOLIC 96329 CALCIUM 9.1 mg/dL 2019 Unknown COMPREHENSIVE METABOLIC 10360 POTASSIUM 4.4 mmol/L 09/29 Unknown COMPREHENSIVE METABOLIC 63191 Total Protein 6.2 g/dL Unknown COMPREHENSIVE METABOLIC 54402 Glucose 391 mg/dL 2019 Unknown COMPREHENSIVE METABOLIC 46033 Bicarbonate 30 mmol/L 09/11 Unknown COMPREHENSIVE METABOLIC 51482 AGAP 9 mmol/L 2019 Unknown MEAN GLUC 2064688 Calc Mean Gluc 332 mg/dL 09/29/2019 Unkn own COMPLETE BLOOD COUNT [id number] WBC 7.0 10e9/L 09/29/19 Unknown COMPLETE BLOOD COUNT [id number] RBC 4.69 10e12/L 2019 Unknown COMPLETE BLOOD COUNT 2231917 HEMOGLOBIN 14.6 g/dL 09/29/19 Unknown COMPLETE BLOOD COUNT [id number] HEMATOCRIT 45.2 % 09/29/19 Unknown COMPLETE BLOOD COUNT [id number] MCV 96.4 fL 0 Unknown COMPLETE BLOOD COUNT 1123882 MCH 31.1 pg 0 Unknown COMPLETE BLOOD COUNT 8353868 MCHC 32.3 g/dL 0 Unknown COMPLETE BLOOD COUNT [id number] PLATELET COUNT 209 10e9/L Unknown COMPLETE BLOOD COUNT 5517757 Mean Plt Volume 9.8 fL Unknown COMPLETE BLOOD COUNT 7248539 Neut Auto 48.1 % 0 Unknown COMPLETE BLOOD COUNT [id number] Lymph Auto 36.5 % 09/29/19 Unknown COMPLETE BLOOD COUNT 4395835 Glynn Auto 8.6 % 0 Unknown COMPLETE BLOOD COUNT 7551222 Eos Auto 6.5 % 0 Unknown COMPLETE BLOOD COUNT [id number] RDW 13.4 % 0 Unknown COMPLETE BLOOD COUNT 2077513 Baso Auto 0.3 % 0 Unknown COMPLETE BLOOD COUNT [id number] Neutrophil Abs 3.37 10e9/L Unknown COMPLETE BLOOD COUNT [id number] Lymphocyte Abs 2.56 10e9/L Unknown COMPLETE BLOOD COUNT [id number] Monocyte Abs 0.60 10e9/L 09/11 Unknown COMPLETE BLOOD COUNT [id number] Eosinophil Abs 0.46 10e9/L Unknown COMPLETE BLOOD COUNT [id number] RDW-SD 45.9 fL 0 Unknown COMPLETE BLOOD COUNT [id number] Basophil Abs 0.02 10e9/L 09/11 Unknown LIPID GROUP 96553 Cholesterol 248 mg/dL 09/29/2019 Unkno wn LIPID GROUP 32023 Triglyceride 898 mg/dL 09/29/2019 Unkn own LIPID GROUP 65857 HDL CHOLESTEROL 41 mg/dL 09/29/2019 U nknown LIPID GROUP 03078 Chol/HDL Ratio 6.05 ratio 09/29/2019 U nknown LIPID GROUP 41676 NON-HDL Chol 207 mg/dL 09/29/2019 Unkn own LIPID GROUP 00231 LDL Cholesterol N/A Trig >400 020 Unknown GLYCOSYLATED HEMOGLOBIN TEST 57151 Hgb A1c 40666-8 13.2 % 0 09/29/2019 Unknown FREE T4 68178 T4 Free 0.75 ng/dL 09/29/2019 Unknown GFR CALC 3704782 GFR Afr Amr >60 mL/min 09/29/2019 Unknow n GFR CALC 3306045 GFR Non Afr Amr >60 mL/min 09/29/2019 Un known THYROID STIMULATING HORMONE 65653 TSH 4.245 uIU/mL 09/29/2019 Unknown COMPLETE BLOOD COUNT 0483611 WBC 10.7 10e9/L 018 Unknown COMPLETE BLOOD COUNT [id number] RBC 4.59 10e12/L 2017 Unknown COMPLETE BLOOD COUNT 7388385 HEMOGLOBIN 14.8 g/dL 12/11/19 18 Unknown COMPLETE BLOOD COUNT [id number] HEMATOCRIT 44.9 % 12/11/19 18 Unknown COMPLETE BLOOD COUNT [id number] MCV 97.8 fL 8 Unknown COMPLETE BLOOD COUNT 6965077 MCH 32.2 pg 8 Unknown COMPLETE BLOOD COUNT 3675620 MCHC 33.0 g/dL 8 Unknown COMPLETE BLOOD COUNT 2647538 PLATELET COUNT 261 10e9/L 10/2017 Unknown COMPLETE BLOOD COUNT 3416557 Mean Plt Volume 9.5 fL 10/2017 Unknown COMPLETE BLOOD COUNT 3327307 Neut Auto 59.9 % 8 Unknown COMPLETE BLOOD COUNT 8484598 Lymph Auto 27.4 % 12/11/19 18 Unknown COMPLETE BLOOD COUNT 4424260 Glynn Auto 8.2 % 8 Unknown COMPLETE BLOOD COUNT 8745387 RDW 13.3 % 8 Unknown COMPLETE BLOOD COUNT 0004179 Eos Auto 4.1 % 8 Unknown COMPLETE BLOOD COUNT 9845156 Baso Auto 0.4 % 8 Unknown COMPLETE BLOOD COUNT [id number] Neutrophil Abs 6.41 10e9/L Unknown COMPLETE BLOOD COUNT 7445061 Lymphocyte Abs 2.93 10e9/L Unknown COMPLETE BLOOD COUNT [id number] Monocyte Abs 0.88 10e9/L 10/2017 Unknown COMPLETE BLOOD COUNT 9651584 Eosinophil Abs 0.44 10e9/L Unknown COMPLETE BLOOD COUNT 2930610 RDW-SD 46.2 fL 8 Unknown COMPLETE BLOOD COUNT [id number] Basophil Abs 0.04 10e9/L 10/2017 Unknown THYROID STIMULATING HORMONE 16210 TSH 4.015 uIU/mL 12/10/2017 Unknown COMPREHENSIVE METABOLIC 20553 AST 25 U/L 2017 Unknown COMPREHENSIVE METABOLIC 18805 ALT 17 U/L 2017 Unknown COMPREHENSIVE METABOLIC 23269 BUN 19 mg/dL 2017 Unknown COMPREHENSIVE METABOLIC 89647 ALBUMIN 4.0 g/dL 2017 Unknown COMPREHENSIVE METABOLIC 63468 CHLORIDE 91 mmol/L 2017 Unknown COMPREHENSIVE METABOLIC 53294 Bili Total 0.5 mg/dL 12/10 Unknown COMPREHENSIVE METABOLIC 37854 ALK PHOS 75 U/L 2017 Unknown COMPREHENSIVE METABOLIC 99201 SODIUM 136 mmol/L 12/10 Unknown COMPREHENSIVE METABOLIC 73274 CREATININE 1.05 mg/dL 10/2017 Unknown COMPREHENSIVE METABOLIC 24585 CALCIUM 8.9 mg/dL 2017 Unknown COMPREHENSIVE METABOLIC 35226 POTASSIUM 3.4 mmol/L 12/10 Unknown COMPREHENSIVE METABOLIC 30187 Total Protein 6.5 g/dL Unknown COMPREHENSIVE METABOLIC 88062 Glucose 138 mg/dL 2017 Unknown COMPREHENSIVE METABOLIC 53946 Bicarbonate 35 mmol/L 10/2017 Unknown COMPREHENSIVE METABOLIC 66633 AGAP 10 mmol/L 2017 Unknown MEAN GLUC 1223611 Calc Mean Gluc 171 mg/dL 12/10/2017 Unkn own LIPID GROUP 38150 Cholesterol 204 mg/dL 12/10/2017 Unkno wn LIPID GROUP 56007 Triglyceride 411 mg/dL 12/10/2017 Unkn own LIPID GROUP 15412 HDL CHOLESTEROL 50 mg/dL 12/10/2017 U nknown LIPID GROUP 89746 Chol/HDL Ratio 4.08 ratio 12/10/2017 U nknown LIPID GROUP 45683 NON-HDL Chol 154 mg/dL 12/10/2017 Unkn own LIPID GROUP 18503 LDL Cholesterol N/A Trig >400 018 Unknown GLYCOSYLATED HEMOGLOBIN TEST 87323 Hgb A1c 90118-2 7.6 % 0 12/10/2017 Unknown FREE T4 72347 T4 Free 1.40 ng/dL 12/10/2017 Unknown GFR CALC 5387873 GFR Non Afr Amr 55 mL/min 12/10/2017 Unk nown GFR CALC 7456011 GFR Afr Amr >60 mL/min 12/10/2017 Unknow n GFR CALC 4035750 GFR Non Afr Amr 48 mL/min 06/28/2017 Unk nown GFR CALC 4367097 GFR Afr Amr 59 mL/min 06/28/2017 Unknown COMPREHENSIVE METABOLIC 46811 AST 32 U/L 2016 Unknown COMPREHENSIVE METABOLIC 18862 ALT 22 U/L 2016 Unknown COMPREHENSIVE METABOLIC 60212 BUN 23 mg/dL 2016 Unknown COMPREHENSIVE METABOLIC 60710 ALBUMIN 4.7 g/dL 2016 Unknown COMPREHENSIVE METABOLIC 41395 CHLORIDE 89 mmol/L 2016 Unknown COMPREHENSIVE METABOLIC 79482 Bili Total 0.5 mg/dL 06/28 Unknown COMPREHENSIVE METABOLIC 15346 ALK PHOS 90 U/L 2016 Unknown COMPREHENSIVE METABOLIC 55220 SODIUM 135 mmol/L 06/28 Unknown COMPREHENSIVE METABOLIC 04259 CREATININE 1.18 mg/dL 06/10 Unknown COMPREHENSIVE METABOLIC 73520 CALCIUM 9.7 mg/dL 2016 Unknown COMPREHENSIVE METABOLIC 15788 POTASSIUM 3.5 mmol/L 06/28 Unknown COMPREHENSIVE METABOLIC 11209 Total Protein 7.7 g/dL Unknown COMPREHENSIVE METABOLIC 00875 Glucose 129 mg/dL 2016 Unknown COMPREHENSIVE METABOLIC 48500 Bicarbonate 34 mmol/L 06/10 Unknown COMPREHENSIVE METABOLIC 14418 AGAP 12 mmol/L 2016 Unknown LIPID GROUP 11205 HDL TEST 64 MG/DL 08/27/2014 Unknown LIPID GROUP 33527 TRIG 222 MG/DL 08/27/2014 Unknown LIPID GROUP 35894 TEST LDL 209 MG/DL 08/27/2014 Unknown LIPID GROUP 58228 CHOL 317 MG/DL 08/27/2014 Unknown LIPID GROUP 35124 RCHOL/HDL 4.95 RATIO 08/27/2014 Unknow n LIPID GROUP 84314 NON-HDL CH 253 MG/DL 08/27/2014 Unknow n GFR CALC 7565067 GFR AA >60 ML/MIN 08/27/2014 Unknown GFR CALC 0398959 GFR NON-AA >60 ML/MIN 08/27/2014 Unknown COMPLETE BLOOD COUNT 7053250 WBC 7.0 10e9/L 08/27/20 14 Unknown COMPLETE BLOOD COUNT 8460500 RBC 4.98 10e12/L 2013 Unknown COMPLETE BLOOD COUNT 3102756 HGB 15.6 g/dL 4 Unknown COMPLETE BLOOD COUNT 0719583 HCT DET 46.5 % 4 Unknown COMPLETE BLOOD COUNT 6246541 MCV 93.4 fL 4 Unknown COMPLETE BLOOD COUNT 5265350 MCH 31.3 pg 4 Unknown COMPLETE BLOOD COUNT 8896571 MCHC 33.5 g/dL 4 Unknown COMPLETE BLOOD COUNT 8197221 PLT 309 10e9/L 08/27/20 14 Unknown COMPLETE BLOOD COUNT 6201686 MPV 9.6 fL 4 Unknown COMPLETE BLOOD COUNT 3686137 CADEN % 57.2 % 4 Unknown COMPLETE BLOOD COUNT 9052275 LY % 33.2 % 4 Unknown COMPLETE BLOOD COUNT 8084093 MON % 7.3 % 4 Unknown COMPLETE BLOOD COUNT 4165134 EOS % 2.0 % 4 Unknown COMPLETE BLOOD COUNT 9293820 BASO % 0.3 % 4 Unknown COMPLETE BLOOD COUNT 2073451 RDW 13.7 % 4 Unknown COMPLETE BLOOD COUNT [id number] ABS CADEN 4.00 10e9/L 014 Unknown COMPLETE BLOOD COUNT [id number] ABS LYMPH 2.32 10e9/L 014 Unknown COMPLETE BLOOD COUNT 2274358 ABS MONO 0.51 10e9/L 014 Unknown COMPLETE BLOOD COUNT [id number] ABS EOS 0.14 10e9/L 014 Unknown COMPLETE BLOOD COUNT 8638028 ABS BASO 0.02 10e9/L 014 Unknown COMPLETE BLOOD COUNT 4032246 RDW-SD 45.1 fL 4 Unknown COMPREHENSIVE METABOLIC 32066 AST 13 U/L 2013 Unknown COMPREHENSIVE METABOLIC 01531 ALT 11 IU/L 2013 Unknown COMPREHENSIVE METABOLIC 52948 BUN 23 MG/DL 2013 Unknown COMPREHENSIVE METABOLIC 56461 ALBUMIN 4.4 GM/DL 2013 Unknown COMPREHENSIVE METABOLIC 39574 CHLORIDE 99 MMOL/L 2013 Unknown COMPREHENSIVE METABOLIC 07332 BILI TOT 0.5 MG/DL 2013 Unknown COMPREHENSIVE METABOLIC 73369 ALK PHOS 56 U/L 2013 Unknown COMPREHENSIVE METABOLIC 44160 SODIUM 138 MMOL/L 08/27 Unknown COMPREHENSIVE METABOLIC 31767 CREATININE 0.95 MG/DL 08/10 Unknown COMPREHENSIVE METABOLIC 47906 CALCIUM 9.8 MG/DL 2013 Unknown COMPREHENSIVE METABOLIC 24796 POTASSIUM 3.5 MMOL/L 08/27 Unknown COMPREHENSIVE METABOLIC 05241 PROT TOT 6.8 GM/DL 2013 Unknown COMPREHENSIVE METABOLIC 00376 Glucose 90 MG/DL 2013 Unknown COMPREHENSIVE METABOLIC 58680 BICARB 34 MMOL/L 2013 Unknown COMPREHENSIVE METABOLIC 99665 ANION GAP 5 MEQ/L 2013 Unknown LIPASE 37883 LIPASE 11 IU/L 07/21/2014 Unknown AMYLASE 08946 AMYLASE 39 IU/L 07/21/2014 Unknown HEMOGLOBIN A1C (GLYCOSYLATED) 6859664 A1C HPLC 26054-6 6.2 % 03/05/2013 Unknown THYROID STIMULATING HORMONE 50799 TSH 6.986 uIU/ML 03/05/2013 Unknown COMPLETE BLOOD COUNT 8542133 WBC 12.7 10e9/L 013 Unknown COMPLETE BLOOD COUNT 9040709 RBC 4.53 10e12/L 2012 Unknown COMPLETE BLOOD COUNT 7503923 HGB 14.7 g/dL 3 Unknown COMPLETE BLOOD COUNT 9592157 HCT DET 43.1 % 3 Unknown COMPLETE BLOOD COUNT 5258245 MCV 95.1 fL 3 Unknown COMPLETE BLOOD COUNT 3177584 MCH 32.5 pg 3 Unknown COMPLETE BLOOD COUNT 2197318 MCHC 34.1 g/dL 3 Unknown COMPLETE BLOOD COUNT 4779199 PLT 346 10e9/L 03/05/20 13 Unknown COMPLETE BLOOD COUNT 2481514 MPV 9.5 fL 3 Unknown COMPLETE BLOOD COUNT 7814671 CADEN % 67.6 % 3 Unknown COMPLETE BLOOD COUNT 3113426 LY % 22.1 % 3 Unknown COMPLETE BLOOD COUNT [id number] MON % 6.6 % 3 Unknown COMPLETE BLOOD COUNT 2071458 EOS % 3.3 % 3 Unknown COMPLETE BLOOD COUNT 2103649 BASO % 0.4 % 3 Unknown COMPLETE BLOOD COUNT 9542291 RDW 14.0 % 3 Unknown COMPLETE BLOOD COUNT 9676247 ABS CADEN 8.59 10e9/L 013 Unknown COMPLETE BLOOD COUNT [id number] ABS LYMPH 2.81 10e9/L 013 Unknown COMPLETE BLOOD COUNT [id number] ABS MONO 0.84 10e9/L 013 Unknown COMPLETE BLOOD COUNT [id number] ABS EOS 0.42 10e9/L 013 Unknown COMPLETE BLOOD COUNT [id number] ABS BASO 0.05 10e9/L 013 Unknown COMPLETE BLOOD COUNT 7406351 RDW-SD 46.0 fL 3 Unknown FREE T4 80460 FREE T4 1.14 NG/DL 03/05/2013 Unknown COMPREHENSIVE METABOLIC 94502 AST 17 U/L 2012 Unknown COMPREHENSIVE METABOLIC 59343 ALT 12 IU/L 2012 Unknown COMPREHENSIVE METABOLIC 92963 BUN 24 MG/DL 2012 Unknown COMPREHENSIVE METABOLIC 33000 ALBUMIN 4.2 GM/DL 2012 Unknown COMPREHENSIVE METABOLIC 12117 CHLORIDE 93 MMOL/L 2012 Unknown COMPREHENSIVE METABOLIC 89404 BILI TOT 0.5 MG/DL 2012 Unknown COMPREHENSIVE METABOLIC 41211 ALK PHOS 75 U/L 2012 Unknown COMPREHENSIVE METABOLIC 89921 SODIUM 141 MMOL/L 03/05 Unknown COMPREHENSIVE METABOLIC 32630 CREATININE 1.36 MG/DL 02/09 Unknown COMPREHENSIVE METABOLIC 30707 CALCIUM 9.2 MG/DL 2012 Unknown COMPREHENSIVE METABOLIC 07594 POTASSIUM 3.1 MMOL/L 03/05 Unknown COMPREHENSIVE METABOLIC 54303 PROT TOT 6.9 GM/DL 2012 Unknown COMPREHENSIVE METABOLIC 74838 Glucose 123 MG/DL 2012 Unknown COMPREHENSIVE METABOLIC 88264 BICARB 36 MMOL/L 2012 Unknown COMPREHENSIVE METABOLIC 94939 ANION GAP 12 MEQ/L 2012 Unknown GFR CALC 3730499 GFR AA 51.0L ML/MIN 03/05/2013 Unknow n GFR CALC 8207386 GFR NON-AA 42.0L ML/MIN 03/05/2013 Unkno wn COMPREHENSIVE METABOLIC 03581 AST 14 U/L 2012 Unknown COMPREHENSIVE METABOLIC 33889 ALT 11 IU/L 2012 Unknown COMPREHENSIVE METABOLIC 95428 BUN 16 MG/DL 2012 Unknown COMPREHENSIVE METABOLIC 76717 ALBUMIN 4.2 GM/DL 2012 Unknown COMPREHENSIVE METABOLIC 72805 CHLORIDE 98 MMOL/L 2012 Unknown COMPREHENSIVE METABOLIC 32834 BILI TOT 0.4 MG/DL 2012 Unknown COMPREHENSIVE METABOLIC 61594 ALK PHOS 77 U/L 2012 Unknown COMPREHENSIVE METABOLIC 47192 SODIUM 139 MMOL/L 09/25 Unknown COMPREHENSIVE METABOLIC 52708 CREATININE 0.86 MG/DL 09/10 Unknown COMPREHENSIVE METABOLIC 51771 CALCIUM 9.5 MG/DL 2012 Unknown COMPREHENSIVE METABOLIC 23454 POTASSIUM 3.8 MMOL/L 09/25 Unknown COMPREHENSIVE METABOLIC 47274 PROT TOT 6.8 GM/DL 2012 Unknown COMPREHENSIVE METABOLIC 80587 Glucose 91 MG/DL 2012 Unknown COMPREHENSIVE METABOLIC 23232 BICARB 32 MMOL/L 2012 Unknown COMPREHENSIVE METABOLIC 25104 ANION GAP 9 MEQ/L 2012 Unknown FREE T4 32209 FREE T4 0.98 NG/DL 09/25/2012 Unknown THYROID STIMULATING HORMONE 68541 TSH 1.736 uIU/ML 09/25/2012 Unknown C-REACTIVE PROTEIN (CRP) QUANT 06662 CRP 2.3 MG/DL 09/25/2012 Unknown COMPLETE BLOOD COUNT 7227624 WBC 11.9 10e9/L 013 Unknown COMPLETE BLOOD COUNT [id number] RBC 4.87 10e12/L 2012 Unknown COMPLETE BLOOD COUNT 9053919 HGB 15.1 g/dL 3 Unknown COMPLETE BLOOD COUNT 1414649 HCT DET 44.8 % 3 Unknown COMPLETE BLOOD COUNT [id number] MCV 92.0 fL 3 Unknown COMPLETE BLOOD COUNT [id number] MCH 31.0 pg 3 Unknown COMPLETE BLOOD COUNT [id number] MCHC 33.7 g/dL 3 Unknown COMPLETE BLOOD COUNT [id number] PLT 343 10e9/L 09/25/19 13 Unknown COMPLETE BLOOD COUNT [id number] MPV 9.0 fL 3 Unknown COMPLETE BLOOD COUNT [id number] CADEN % 68.2 % 3 Unknown COMPLETE BLOOD COUNT [id number] LY % 22.4 % 3 Unknown COMPLETE BLOOD COUNT [id number] MON % 6.4 % 3 Unknown COMPLETE BLOOD COUNT [id number] EOS % 2.7 % 3 Unknown COMPLETE BLOOD COUNT [id number] BASO % 0.3 % 3 Unknown COMPLETE BLOOD COUNT [id number] RDW 13.8 % 3 Unknown COMPLETE BLOOD COUNT [id number] ABS CADEN 8.12 10e9/L 013 Unknown COMPLETE BLOOD COUNT [id number] ABS LYMPH 2.67 10e9/L 013 Unknown COMPLETE BLOOD COUNT [id number] ABS MONO 0.76 10e9/L 013 Unknown COMPLETE BLOOD COUNT [id number] ABS EOS 0.32 10e9/L 013 Unknown COMPLETE BLOOD COUNT [id number] ABS BASO 0.04 10e9/L 013 Unknown COMPLETE BLOOD COUNT [id number] RDW-SD 45.6 fL 3 Unknown GFR CALC [id number] GFR AA >60 ML/MIN 09/25/2012 Unknown GFR CALC [id number] GFR NON-AA >60 ML/MIN 09/25/2012 Unknown ERYTHROCYTE SEDIMENTATION RATE 55255 ESR 19 MM/HR 05/06/2012 Unknown VITAMIN B 12 FOLIC ACID [id number] VIT B 12 922 PG/ML 04/11 Unknown VITAMIN B 12 FOLIC ACID [id number] FOLIC ACID 13.6 NG/ML Unknown URIC ACID [id number] URIC ACID 7.8 MG/DL 05/06/2012 Unknown COMPLETE BLOOD COUNT 44110 WBC 11.9 10e9/L 012 Unknown COMPLETE BLOOD COUNT 54654 RBC 5.30 10e12/L 2011 Unknown COMPLETE BLOOD COUNT 14725 HGB 16.6 g/dL 2 Unknown COMPLETE BLOOD COUNT 15625 HCT DET 47.2 % 2 Unknown COMPLETE BLOOD COUNT 55998 MCV 89.1 fL 2 Unknown COMPLETE BLOOD COUNT 91719 MCH 31.3 pg 2 Unknown COMPLETE BLOOD COUNT 35128 MCHC 35.2 g/dL 2 Unknown COMPLETE BLOOD COUNT 32378 PLT 362 10e9/L 05/06/20 12 Unknown COMPLETE BLOOD COUNT 53949 MPV 9.4 fL 2 Unknown COMPLETE BLOOD COUNT 18405 CADEN % 68.2 % 2 Unknown COMPLETE BLOOD COUNT 51314 LY % 22.0 % 2 Unknown COMPLETE BLOOD COUNT 50083 MON % 6.9 % 2 Unknown COMPLETE BLOOD COUNT 82324 EOS % 2.6 % 2 Unknown COMPLETE BLOOD COUNT 29571 BASO % 0.3 % 2 Unknown COMPLETE BLOOD COUNT 95080 RDW 12.8 % 2 Unknown COMPLETE BLOOD COUNT 64130 ABS CADEN 8.12 10e9/L 012 Unknown COMPLETE BLOOD COUNT 77486 ABS LYMPH 2.62 10e9/L 012 Unknown COMPLETE BLOOD COUNT 16824 ABS MONO 0.82 10e9/L 012 Unknown COMPLETE BLOOD COUNT 87835 ABS EOS 0.31 10e9/L 012 Unknown COMPLETE BLOOD COUNT 60142 ABS BASO 0.04 10e9/L 012 Unknown COMPLETE BLOOD COUNT 48936 RDW-SD 41.5 fL 2 Unknown GFR CALC [id number] GFR AA >60 ML/MIN 05/06/2012 Unknown GFR CALC [id number] GFR NON-AA 58.0L ML/MIN 05/06/2012 Unkno wn FREE T4 99699 FREE T4 1.15 NG/DL 05/06/2012 Unknown THYROID STIMULATING HORMONE 81177 TSH 1.568 uIU/ML 05/06/2012 Unknown COMPREHENSIVE METABOLIC 15993 AST 20 U/L 2011 Unknown COMPREHENSIVE METABOLIC 29287 ALT 12 IU/L 2011 Unknown COMPREHENSIVE METABOLIC 07868 BUN 20 MG/DL 2011 Unknown COMPREHENSIVE METABOLIC 90175 ALBUMIN 4.5 GM/DL 2011 Unknown COMPREHENSIVE METABOLIC 94612 CHLORIDE 91 MMOL/L 2011 Unknown COMPREHENSIVE METABOLIC 07290 BILI TOT 0.4 MG/DL 2011 Unknown COMPREHENSIVE METABOLIC 87006 ALK PHOS 73 U/L 2011 Unknown COMPREHENSIVE METABOLIC 90734 SODIUM 139 MMOL/L 05/06 Unknown COMPREHENSIVE METABOLIC 23666 CREATININE 1.02 MG/DL 04/11 Unknown COMPREHENSIVE METABOLIC 77028 CALCIUM 9.7 MG/DL 2011 Unknown COMPREHENSIVE METABOLIC 97271 POTASSIUM 3.1 MMOL/L 05/06 Unknown COMPREHENSIVE METABOLIC 32761 PROT TOT 7.3 GM/DL 2011 Unknown COMPREHENSIVE METABOLIC 91911 Glucose 118 MG/DL 2011 Unknown COMPREHENSIVE METABOLIC 77277 BICARB 33 MMOL/L 2011 Unknown COMPREHENSIVE METABOLIC 69854 ANION GAP 15 MEQ/L 2011 Unknown Procedures Procedure Codes Date COMPREHEN METABOLIC PANEL CPT-4: 25419 02/12/2020 A1C HPLC CPT-4: 98180 02/12/2020 ROUTINE VENIPUNCTURE CPT-4: 17977 09/29/2019 URINALYSIS NONAUTO W/O SCOPE CPT-4: 97322 09/29/2019 COMPREHEN METABOLIC PANEL CPT-4: 01155 09/29/2019 LIPID PANEL CPT-4: 75356 09/29/2019 A1C HPLC CPT-4: 89371 09/29/2019 ASSAY OF FREE THYROXINE CPT-4: 89059 09/29/2019 ASSAY THYROID STIM HORMONE CPT-4: 55554 09/29/2019 COMPLETE CBC W/AUTO DIFF WBC CPT-4: 70289 09/29/2019 URINALYSIS NONAUTO W/O SCOPE CPT-4: 49826 09/30/2018 MICROALBUMIN QUANTITATIVE CPT-4: 40810 09/30/2018 CEFTRIAXONE SODIUM INJECTION CPT-4: J0696 06/19/2018 THER/PROPH/DIAG INJ SC/IM CPT-4: 54067 06/19/2018 CEFTRIAXONE SODIUM INJECTION CPT-4: J0696 06/17/2018 THER/PROPH/DIAG INJ SC/IM CPT-4: 95057 06/17/2018 THER/PROPH/DIAG INJ SC/IM CPT-4: 64310 05/16/2018 KETOROLAC TROMETHAMINE INJ CPT-4: J1885 05/16/2018 ONDANSETRON HCL INJECTION CPT-4: J2405 05/16/2018 THER/PROPH/DIAG INJ SC/IM CPT-4: 72679 05/16/2018 ROUTINE VENIPUNCTURE CPT-4: 88965 03/20/2018 COMPREHEN METABOLIC PANEL CPT-4: 07176 03/20/2018 DEXAMETHASONE SODIUM PHOS CPT-4: J1100 02/11/2018 THER/PROPH/DIAG INJ SC/IM CPT-4: 58256 02/11/2018 TRIAMCINOLONE ACET INJ NOS CPT-4: J3301 02/11/2018 CEFTRIAXONE SODIUM INJECTION CPT-4: J0696 02/01/2018 THER/PROPH/DIAG INJ SC/IM CPT-4: 47968 02/01/2018 CEFTRIAXONE SODIUM INJECTION CPT-4: J0696 01/30/2018 THER/PROPH/DIAG INJ SC/IM CPT-4: 95902 01/30/2018 ROUTINE VENIPUNCTURE CPT-4: 51668 12/10/2017 ASSAY OF FREE THYROXINE CPT-4: 17944 12/10/2017 ASSAY THYROID STIM HORMONE CPT-4: 67890 12/10/2017 COMPREHEN METABOLIC PANEL CPT-4: 87338 12/10/2017 COMPLETE CBC W/AUTO DIFF WBC CPT-4: 37860 12/10/2017 LIPID PANEL CPT-4: 49601 12/10/2017 A1C HPLC CPT-4: 39814 12/10/2017 CEFTRIAXONE SODIUM INJECTION CPT-4: J0696 12/10/2017 THER/PROPH/DIAG INJ SC/IM CPT-4: 97610 12/10/2017 CEFTRIAXONE SODIUM INJECTION CPT-4: J0696 12/07/2017 THER/PROPH/DIAG INJ SC/IM CPT-4: 60818 12/07/2017 DEXAMETHASONE SODIUM PHOS CPT-4: J1100 12/07/2017 THER/PROPH/DIAG INJ SC/IM CPT-4: 81292 12/07/2017 CEFTRIAXONE SODIUM INJECTION CPT-4: J0696 10/08/2017 THER/PROPH/DIAG INJ SC/IM CPT-4: 20876 10/08/2017 CEFTRIAXONE SODIUM INJECTION CPT-4: J0696 09/21/2017 THER/PROPH/DIAG INJ SC/IM CPT-4: 39767 09/21/2017 CEFTRIAXONE SODIUM INJECTION CPT-4: J0696 09/20/2017 THER/PROPH/DIAG INJ SC/IM CPT-4: 19165 09/20/2017 REMOVAL OF NAIL PLATE CPT-4: 70807 08/29/2017 THER/PROPH/DIAG INJ SC/IM CPT-4: 80854 08/29/2017 TRIAMCINOLONE ACET INJ NOS CPT-4: J3301 08/29/2017 CEFTRIAXONE SODIUM INJECTION CPT-4: J0696 08/29/2017 THER/PROPH/DIAG INJ SC/IM CPT-4: 16494 08/29/2017 DESTRUCT PREMALG LESION (Cryosurgery) CPT-4: 17441 ROUTINE VENIPUNCTURE CPT-4: 31711 06/27/2017 ASSAY OF FREE THYROXINE CPT-4: 84480 06/27/2017 ASSAY THYROID STIM HORMONE CPT-4: 20789 06/27/2017 COMPREHEN METABOLIC PANEL CPT-4: 04634 06/27/2017 COMPLETE CBC W/AUTO DIFF WBC CPT-4: 93557 06/27/2017 EXC TR-EXT B9+REECE 0.5 CM< CPT-4: 31071 01/24/2017 THER/PROPH/DIAG INJ SC/IM CPT-4: 14625 08/02/2016 DEXAMETHASONE SODIUM PHOS CPT-4: J1100 08/02/2016 DESTRUCT PREMALG LESION (Cryosurgery) CPT-4: 91809 EXC TR-EXT B9+REECE 0.5 CM< CPT-4: 87272 08/01/2016 AEROBIC WOUND CULTURE & STN CPT-4: 15832 07/06/2016 CEFTRIAXONE SODIUM INJECTION CPT-4: J0696 05/25/2016 THER/PROPH/DIAG INJ SC/IM CPT-4: 95818 05/25/2016 THER/PROPH/DIAG INJ SC/IM CPT-4: 26845 04/26/2016 DEXAMETHASONE SODIUM PHOS CPT-4: J1100 04/26/2016 CEFTRIAXONE SODIUM INJECTION CPT-4: J0696 04/26/2016 THER/PROPH/DIAG INJ SC/IM CPT-4: 88858 04/26/2016 THER/PROPH/DIAG INJ SC/IM CPT-4: 49457 02/09/2016 TRIAMCINOLONE ACET INJ NOS CPT-4: J3301 02/09/2016 URINALYSIS NONAUTO W/O SCOPE CPT-4: 44473 01/24/2016 URINE CULTURE/ COLONY COUNT CPT-4: 88183 01/24/2016 THER/PROPH/DIAG INJ SC/IM CPT-4: 24893 12/08/2015 TRIAMCINOLONE ACET INJ NOS CPT-4: J3301 12/08/2015 THER/PROPH/DIAG INJ SC/IM CPT-4: 44981 10/07/2015 TRIAMCINOLONE ACET INJ NOS CPT-4: J3301 10/07/2015 DESTRUCT PREMALG LESION (Cryosurgery) CPT-4: 77631 THER/PROPH/DIAG INJ SC/IM CPT-4: 89610 03/16/2015 METHYLPREDNISOLONE 40 MG INJ CPT-4: J1030 03/16/2015 DESTRUCT PREMALG LESION (Cryosurgery) CPT-4: 36980 THER/PROPH/DIAG INJ SC/IM CPT-4: 05928 09/11/2014 METHYLPREDNISOLONE 40 MG INJ CPT-4: J1030 09/11/2014 TRIAMCINOLONE ACET INJ NOS CPT-4: J3301 09/11/2014 CEFTRIAXONE SODIUM INJECTION CPT-4: J0696 09/11/2014 THER/PROPH/DIAG INJ SC/IM CPT-4: 51691 09/11/2014 ROUTINE VENIPUNCTURE CPT-4: 54088 08/27/2014 COMPREHEN METABOLIC PANEL CPT-4: 08657 08/27/2014 COMPLETE CBC W/AUTO DIFF WBC CPT-4: 73427 08/27/2014 LIPID PANEL CPT-4: 45620 08/27/2014 ROUTINE VENIPUNCTURE CPT-4: 08022 07/21/2014 ASSAY OF AMYLASE CPT-4: 35890 07/21/2014 ASSAY OF LIPASE CPT-4: 34677 07/21/2014 THER/PROPH/DIAG INJ SC/IM CPT-4: 66192 07/15/2014 TRIAMCINOLONE ACET INJ NOS CPT-4: J3301 07/15/2014 ROUTINE VENIPUNCTURE CPT-4: 70920 05/14/2014 ASSAY OF FREE THYROXINE CPT-4: 05327 05/14/2014 ASSAY THYROID STIM HORMONE CPT-4: 60551 05/14/2014 COMPREHEN METABOLIC PANEL CPT-4: 63222 05/14/2014 COMPLETE CBC W/AUTO DIFF WBC CPT-4: 12544 05/14/2014 LIPID PANEL CPT-4: 45066 05/14/2014 CEFTRIAXONE SODIUM INJECTION CPT-4: J0696 04/21/2014 THER/PROPH/DIAG INJ SC/IM CPT-4: 13148 04/21/2014 THER/PROPH/DIAG INJ SC/IM CPT-4: 32689 04/21/2014 TRIAMCINOLONE ACET INJ NOS CPT-4: J3301 04/21/2014 THER/PROPH/DIAG INJ SC/IM CPT-4: 38998 03/04/2014 METHYLPREDNISOLONE 40 MG INJ CPT-4: J1030 03/04/2014 TRIAMCINOLONE ACET INJ NOS CPT-4: J3301 03/04/2014 CEFTRIAXONE SODIUM INJECTION CPT-4: J0696 03/04/2014 THER/PROPH/DIAG INJ SC/IM CPT-4: 49567 03/04/2014 TDAP VACCINE 7 YRS/> IM CPT-4: 77073 02/27/2014 IMMUNIZATION ADMIN CPT-4: 49724 02/27/2014 DESTRUCT PREMALG LESION (Cryosurgery) CPT-4: 11109 DESTRUCT PREMALG LES 2-14 CPT-4: 84119 01/13/2014 THER/PROPH/DIAG INJ SC/IM CPT-4: 93055 10/21/2013 METHYLPREDNISOLONE 40 MG INJ CPT-4: J1030 10/21/2013 TRIAMCINOLONE ACET INJ NOS CPT-4: J3301 10/21/2013 CEFTRIAXONE SODIUM INJECTION CPT-4: J0696 08/27/2013 THER/PROPH/DIAG INJ SC/IM CPT-4: 06774 08/27/2013 THER/PROPH/DIAG INJ SC/IM CPT-4: 31624 08/27/2013 METHYLPREDNISOLONE 40 MG INJ CPT-4: J1030 08/27/2013 TRIAMCINOLONE ACET INJ NOS CPT-4: J3301 08/27/2013 THER/PROPH/DIAG INJ SC/IM CPT-4: 08612 06/23/2013 METHYLPREDNISOLONE 40 MG INJ CPT-4: J1030 06/23/2013 TRIAMCINOLONE ACET INJ NOS CPT-4: J3301 06/23/2013 THER/PROPH/DIAG INJ SC/IM CPT-4: 17424 05/26/2013 METHYLPREDNISOLONE 40 MG INJ CPT-4: J1030 05/26/2013 TRIAMCINOLONE ACET INJ NOS CPT-4: J3301 05/26/2013 ROUTINE VENIPUNCTURE CPT-4: 54895 03/05/2013 ASSAY OF FREE THYROXINE CPT-4: 13733 03/05/2013 ASSAY THYROID STIM HORMONE CPT-4: 58623 03/05/2013 COMPREHEN METABOLIC PANEL CPT-4: 49040 03/05/2013 COMPLETE CBC W/AUTO DIFF WBC CPT-4: 60799 03/05/2013 A1C GLYCOSYLATED HEMOGLOBIN TEST CPT-4: 31352 013 DRAIN/INJECT JOINT/BURSA CPT-4: 31411 12/04/2012 METHYLPREDNISOLONE 40 MG INJ CPT-4: J1030 12/04/2012 TRIAMCINOLONE ACET INJ NOS CPT-4: J3301 12/04/2012 CEFTRIAXONE SODIUM INJECTION CPT-4: J0696 11/21/2012 THER/PROPH/DIAG INJ SC/IM CPT-4: 36840 11/21/2012 THER/PROPH/DIAG INJ SC/IM CPT-4: 74151 10/14/2012 METHYLPREDNISOLONE 40 MG INJ CPT-4: J1030 10/14/2012 TRIAMCINOLONE ACET INJ NOS CPT-4: J3301 10/14/2012 URINALYSIS NONAUTO W/O SCOPE CPT-4: 69203 09/27/2012 ROUTINE VENIPUNCTURE CPT-4: 81879 09/25/2012 ASSAY OF FREE THYROXINE CPT-4: 67771 09/25/2012 ASSAY THYROID STIM HORMONE CPT-4: 06593 09/25/2012 COMPREHEN METABOLIC PANEL CPT-4: 20373 09/25/2012 COMPLETE CBC W/AUTO DIFF WBC CPT-4: 38820 09/25/2012 C-REACTIVE PROTEIN CPT-4: 40755 09/25/2012 THER/PROPH/DIAG INJ SC/IM CPT-4: 86103 08/29/2012 METHYLPREDNISOLONE 40 MG INJ CPT-4: J1030 08/29/2012 TRIAMCINOLONE ACET INJ NOS CPT-4: J3301 08/29/2012 DESTRUCT PREMALG LESION (Cryosurgery) CPT-4: 29788 THER/PROPH/DIAG INJ SC/IM CPT-4: 97210 05/06/2012 METHYLPREDNISOLONE 40 MG INJ CPT-4: J1030 05/06/2012 TRIAMCINOLONE ACET INJ NOS CPT-4: J3301 05/06/2012 VITAMIN B 12 FOLIC ACID CPT-4: 67458|09231 05/06/2012 RBC SED RATE AUTOMATED CPT-4: 94543 05/06/2012 ROUTINE VENIPUNCTURE CPT-4: 03148 05/06/2012 ASSAY OF FREE THYROXINE CPT-4: 31123 05/06/2012 ASSAY THYROID STIM HORMONE CPT-4: 40341 05/06/2012 COMPREHEN METABOLIC PANEL CPT-4: 09959 05/06/2012 COMPLETE CBC W/AUTO DIFF WBC CPT-4: 02474 05/06/2012 ASSAY OF BLOOD/URIC ACID CPT-4: 87049 05/06/2012 THER/PROPH/DIAG INJ SC/IM CPT-4: 18111 03/19/2012 KETOROLAC TROMETHAMINE INJ CPT-4: J1885 03/19/2012 KETOROLAC TROMETHAMINE INJ CPT-4: J1885 01/30/2012 THER/PROPH/DIAG INJ SC/IM CPT-4: 38428 01/30/2012 PROMETHAZINE HCL INJECTION CPT-4: J2550 01/30/2012 THER/PROPH/DIAG INJ SC/IM CPT-4: 68929 01/24/2012 METHYLPREDNISOLONE 40 MG INJ CPT-4: J1030 01/24/2012 TRIAMCINOLONE ACET INJ NOS CPT-4: J3301 01/24/2012 THER/PROPH/DIAG INJ SC/IM CPT-4: 94239 09/13/2011 KETOROLAC TROMETHAMINE INJ CPT-4: J1885 09/13/2011 THER/PROPH/DIAG INJ SC/IM CPT-4: 12750 09/13/2011 PROMETHAZINE HCL INJECTION CPT-4: J2550 09/13/2011 CEFTRIAXONE SODIUM INJECTION CPT-4: J0696 07/20/2011 THER/PROPH/DIAG INJ SC/IM CPT-4: 28033 07/20/2011 THER/PROPH/DIAG INJ SC/IM CPT-4: 12062 07/20/2011 METHYLPREDNISOLONE INJECTION CPT-4: J2930 07/20/2011 URINALYSIS NONAUTO W/O SCOPE CPT-4: 11469 05/09/2011 CEFTRIAXONE SODIUM INJECTION CPT-4: J0696 05/09/2011 THER/PROPH/DIAG INJ SC/IM CPT-4: 05165 05/09/2011 THER/PROPH/DIAG INJ SC/IM CPT-4: 95474 05/09/2011 PROMETHAZINE HCL INJECTION CPT-4: J2550 05/09/2011 HYDRATION IV INFUSION INIT CPT-4: 82530 05/09/2011 DESTRUCT PREMALG LESION (Cryosurgery) CPT-4: 45050 DESTRUCT PREMALG LES 2-14 CPT-4: 89328 07/19/2010 REMOVAL OF SKIN TAGS <W/15 CPT-4: 49955 05/30/2010 THER/PROPH/DIAG INJ SC/IM CPT-4: 54634 04/05/2010 CEFTRIAXONE SODIUM INJECTION CPT-4: J0696 04/05/2010 TRIAMCINOLONE ACET INJ NOS CPT-4: J3301 04/05/2010 METHYLPREDNISOLONE 40 MG INJ CPT-4: J1030 04/05/2010 THER/PROPH/DIAG INJ SC/IM CPT-4: 03703 04/05/2010 TRIAMCINOLONE ACET INJ NOS CPT-4: J3301 03/09/2010 METHYLPREDNISOLONE 40 MG INJ CPT-4: J1030 03/09/2010 THER/PROPH/DIAG INJ SC/IM CPT-4: 01173 03/09/2010 THER/PROPH/DIAG INJ SC/IM CPT-4: 50319 03/09/2010 CEFTRIAXONE SODIUM INJECTION CPT-4: J0696 03/09/2010 [...] 1: 132/80 Code: 8480-6 BMI: 35.8 Code: 43330-2 Heart Rate 1: 88 bpm Height: 5'4" Respiratory Rate: 20 bpm SpO2: 95% Tempera ture: 36.9 (C) / 98.5 (F) Weight: 210 lbs 05/28/2019 Blood Pressure 1: 126/82 Code: 8480-6 BMI: 35.0 Code: 12812-7 Heart Rate 1: 88 bpm Height: 5'4" [...] 1: 128/90 Code: 8480-6 BMI: 37.2 Code: 15427-6 Heart Rate 1: 84 bpm Height: 5'4" Respiratory Rate: 20 bpm SpO2: 95% Tempera ture: 36.6 (C) / 97.8 (F) Weight: 217 lbs 08/27/2018 Blood Pressure 1: 128/88 Code: 8480-6 BMI: 38.3 Code: 75658-8 Heart Rate 1: 84 bpm Height: 5'4" [...] 1: 119/72 Code: 8480-6 BMI: 37.4 Code: 07999-3 Heart Rate 1: 82 bpm Height: 5'4" Respiratory Rate: 12 bpm SpO2: 94% Tempera ture: 35.2 (C) / 95.4 (F) Weight: 218 lbs 12/18/2017 Blood Pressure 1: 128/86 Code: 8480-6 BMI: 37.8 Code: 41410-4 Heart Rate 1: 84 bpm Height: 5'4" [...] 1: 128/82 Code: 8480-6 BMI: 35.5 Code: 74296-1 Heart Rate 1: 84 bpm Height: 5'4" [...] 1: 128/82 Code: 8480-6 BMI: 30.2 Code: 27430-4 Heart Rate 1: 80 bpm Height: 5'4" [...] 1: 128/86 Code: 8480-6 BMI: 32.8 Code: 27172-6 Heart Rate 1: 66 bpm Height: 5'4" Respiratory Rate: 18 bpm Temperature: 36 .3 (C) / 97.3 (F) Weight: 191 lbs 06/23/2013 Blood Pressure 1: 132/94 Code: 8480-6 BMI: 34.0 Code: 08272-8 Heart Rate 1: 84 bpm Height: 5'4" Respiratory Rate: 20 bpm Temperature: 36 .8 (C) / 98.2 (F) Weight: 198 lbs 05/26/2013 Blood Pressure 1: 114/80 Code: 8480-6 BMI: 35.0 Code: 31801-6 Heart Rate 1: 80 bpm Height: 5'4" Respiratory Rate: 20 bpm Temperature: 36 .4 (C) / 97.6 (F) Weight: 204 lbs 04/16/2013 Blood Pressure 1: 114/82 Code: 8480-6 BMI: 36.7 Code: 35945-5 Heart Rate 1: 84 bpm Height: 5'4" Respiratory Rate: 20 bpm Temperature: 36 .7 (C) / 98.0 (F) Weight: 214 lbs 03/05/2013 Blood Pressure 1: 136/90 Code: 8480-6 BMI: 37.1 Code: 87632-5 Heart Rate 1: 84 bpm Height: 5'4" [...] 1: 168/114 Code: 8480-6 BMI: 36.2 Code: 85185-2 Heart Rate 1: 104 bpm Height: 5'4" Respiratory Rate: 20 bpm Temperature: 36 .8 (C) / 98.2 (F) Weight: 211 lbs 11/22/2012 Blood Pressure 1: 128/90 Code: 8480-6 Heart Rate 1: 88 bpm Respiratory Rate: 20 bpm SpO2: 96% Temperature: 36.8 (C) / 98.2 (F) 11/21/2012 Blood Pressure 1: 146/100 Code: 8480-6 BMI: 35.7 Code: 97347-1 Heart Rate 1: 96 bpm Height: 5'4" [...] 1: 138/100 Code: 8480-6 BMI: 35.7 Code: 18137-3 Heart Rate 1: 96 bpm Height: 5'4" Respiratory Rate: 20 bpm Temperature: 36 .8 (C) / 98.2 (F) Weight: 208 lbs 05/06/2012 Blood Pressure 1: 154/102 Code: 8480-6 BMI: 34.7 Code: 69285-3 Heart Rate 1: 116 bpm Height: 5'4" Respiratory Rate: 20 bpm Temperature: 36 .8 (C) / 98.2 (F) Weight: 202 lbs 04/03/2012 Blood Pressure 1: 134/94 Code: 8480-6 BMI: 34.8 Code: 13464-0 Heart Rate 1: 108 bpm Height: 5'4" Respiratory Rate: 20 bpm Temperature: 36 .8 (C) / 98.2 (F) Weight: 203 lbs 03/19/2012 Blood Pressure 1: 148/106 Code: 8480-6 BMI: 35.0 Code: 51059-5 Heart Rate 1: 100 bpm Height: 5'4" Respiratory Rate: 20 bpm Temperature: 36 .6 (C) / 97.9 (F) Weight: 204 lbs 02/22/2012 Blood Pressure 1: 146/94 Code: 8480-6 He art Rate 1: 88 bpm 02/21/2012 Blood Pressure 1: 172/120 Code: 8480-6 B lood Pressure 2: 152/106 Code: 8480-6 Heart Rate 1: 116 bpm 02/20/2012 Blood Pressure 1: 160/100 Code: 8480-6 BMI: 32.0 Code: 94828-2 Heart Rate 1: 84 bpm Height: 5'7" Temperature: 36.5 (C) / 97.7 (F) Weight: 204 lbs 01/30/2012 Blood Pressure 1: 152/110 Code: 8480-6 BMI: 32.0 Code: 58710-6 Heart Rate 1: 116 bpm Height: 5'7" Respiratory Rate: 20 bpm Temperature: 37 .0 (C) / 98.6 (F) Weight: 204 lbs 01/24/2012 Blood Pressure 1: 146/100 Code: 8480-6 BMI: 32.0 Code: 34150-3 Heart Rate 1: 100 bpm Height: 5'7" Respiratory Rate: 20 bpm Temperature: 36 .7 (C) / 98.0 (F) Weight: 204 lbs 01/10/2012 Blood Pressure 1: 156/94 Code: 8480-6 BMI: 32.6 Code: 60228-9 Heart Rate 1: 72 bpm Height: 5'7" Respiratory Rate: 20 bpm Temperature: 36 .8 (C) / 98.2 (F) Weight: 208 lbs 12/11/2011 Blood Pressure 1: 146/100 Code: 8480-6 Heart Rat e 1: 116 bpm Height: 5'7" Respiratory Rate: 20 bpm Temperature: 36.9 (C) / 98.4 (F) We ight: 11/09/2011 Blood Pressure 1: 148/96 Code: 8480-6 BMI: 32.1 Code: 11144-8 Heart Rate 1: 116 bpm Height: 5'7" Respiratory Rate: 20 bpm Temperature: 36 .7 (C) / 98.0 (F) Weight: 205 lbs 09/13/2011 Blood Pressure 1: 126/88 Code: 8480-6 Heart Rate 1: 88 bpm Height: 5'7" Respiratory Rate: 20 bpm Temperature: 36.9 (C) / 98.4 (F) We ight: 08/31/2011 Blood Pressure 1: 118/82 Code: 8480-6 BMI: 32.0 Code: 08169-7 Heart Rate 1: 80 bpm Height: 5'7" Temperature: 36.4 (C) / 97.6 (F) Weight: 204 lbs 07/06/2011 Blood Pressure 1: 128/86 Code: 8480-6 BMI: 30.9 Code: 32874-0 Heart Rate 1: 92 bpm Height: 5'7" Respiratory Rate: 20 bpm Temperature: 36 .9 (C) / 98.4 (F) Weight: 197 lbs 06/06/2011 Blood Pressure 1: 112/74 Code: 8480-6 BMI: 31.0 Code: 85716-3 Heart Rate 1: 72 bpm Height: 5'7" [...] 1: 128/92 Code: 8480-6 BMI: 33.6 Code: 84305-6 Heart Rate 1: 104 bpm Height: 5'4" [...] 01/24/2016 cough 12/23/2015 patient is chante velez kimo and steroid injection chest congestion [...] Check-up Encounters Encounter Performer Location Codes Date ([id number]) OFFICE/OUTPATIENT VISIT EST Diagnosis: Blister (nonthermal), right foot, initial encounter[ICD10: S90.821A] Diagnosis: Type 2 diabetes mellitus with hyperglycemia[ICD10: E11.65] Diagnosis: Lower extremity edema[ICD10: R60.0] Kathleen Leijaimaldi CALEBTaran DARLENE LucioJj TD [employer] CPT-4: 48550 02/12/2020 ([id number]) OFFICE/OUTPATIENT VISIT EST Diagnosis: Essential (primary) hypertension[ICD10: I10] Diagnosis: Type 2 diabetes mellitus with hyperglycemia[ICD10: E11.65] Diagnosis: Allergic rhinitis[ICD10: J30.9] María Elena JUARES LucioJj TD [employer] CPT-4: 76526 01/13/2020 ([id number]) OFFICE/OUTPATIENT VISIT EST Diagnosis: Type 2 diabetes mellitus with hyperglycemia[ICD10: E11.65] María Elena JUARES LucioJj TD [employer] CPT-4: 70057 11/20/2019 ([id number]) OFFICE/OUTPATIENT VISIT EST Diagnosis: Ingrowing nail[ICD10: L60.0] Diagnosis: Type 2 diabetes mellitus with hyperglycemia[ICD10: E11.65] Kathleen Zuniga MARÍA ELENA LucioJj TD [employer] CPT-4: 06445 10/07/2019 ([id number]) OFFICE/OUTPATIENT VISIT EST Diagnosis: DM w/o complication type II, uncontrolled[ICD10: E11.65] Diagnosis: Hypertriglyceridemia[ICD10: E78.1] Diagnosis: Essential hypertension[ICD10: I10] María Elena JEAN [employer] CPT-4: 93758 09/30/2019 ([id number]) NURSE/OUTPATIENT VISIT EST Diagnosis: Essential (primary) hypertension[ICD10: I10] Diagnosis: Cervicalgia[ICD10: M54.2] Diagnosis: Hyperglycemia, unspecified[ICD10: R73.9] Diagnosis: Mixed hyperlipidemia[ICD10: E78.2] María Elena JEAN [employer] CPT-4: 80904 09/29/2019 ([id number]) OFFICE/OUTPATIENT VISIT EST Diagnosis: Essential (primary) hypertension[ICD10: I10] Diagnosis: Fall from bed, sequela[ICD10: W06.XXXS] María Elena APPIAH DO [facility] CPT-4: 52690 05/28/2019 ([id number]) NURSE/OUTPATIENT VISIT EST Diagnosis: Essential (primary) hypertension[ICD10: I10] María Elena APPIAH DO [facility] CPT-4: 22820 05/19/2019 ([id number]) OFFICE/OUTPATIENT VISIT EST Diagnosis: Essential (primary) hypertension[ICD10: I10] Diagnosis: Type 2 diabetes mellitus with hyperglycemia[ICD10: E11.65] Diagnosis: Intervertebral disc disorders with radiculopathy, 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 CPT-4: 03624 09/30/2018 ([id number]) OFFICE/OUTPATIENT VISIT EST Diagnosis: Pain in left elbow[ICD10: M25.522] Diagnosis: Acute stress reaction[ICD10: F43.0] Diagnosis: Primary insomnia[ICD10: F51.01] Diagnosis: Abnormal weight gain[ICD10: R63.5] María Elena APPIAH [employer] [facility] CPT-4: 37324 08/27/2018 ([id number]) OFFICE/OUTPATIENT VISIT EST Diagnosis: Acute recurrent sinusitis, unspecified[ICD10: J01.91] Diagnosis: Follicular disorder, unspecified[ICD10: L73.9] Diagnosis: Tinea corporis[ICD10: B35.4] María Elena APPIAH [facility] CPT-4: 31171 08/09/2018 ([id number]) OFFICE/OUTPATIENT VISIT EST Diagnosis: Tinea corporis[ICD10: B35.4] Diagnosis: Anxiety disorder, unspecified[ICD10: F41.9] Diagnosis: Menopausal and female climacteric states[ICD10: N95.1] María Elena APPIAH DO [facility] CPT-4: 84872 07/22/2018 ([id number]) NURSE/OUTPATIENT VISIT EST Diagnosis: Cellulitis of right toe[ICD10: L03.031] María Elena APPIAH DO [facility] CPT-4: 98952 06/19/2018 ([id number]) OFFICE/OUTPATIENT VISIT EST Diagnosis: Cellulitis of right toe[ICD10: L03.031] Kathleen APPIAH DO [facility] CPT-4: 19291 06/17/2018 ([id number]) OFFICE/OUTPATIENT VISIT EST Diagnosis: Migraine without aura, intractable, without status migrainosus[ICD10: G43.019] Diagnosis: Zoster without complications[ICD10: B02.9] Kathleen APPIAH DO [facility] CPT-4: 33353 05/16/2018 ([id number]) OFFICE/OUTPATIENT VISIT EST Diagnosis: Cellulitis of right lower limb[ICD10: L03.115] Kathleen APPIAH DO [facility] CPT-4: 89571 03/20/2018 ([id number]) OFFICE/OUTPATIENT VISIT EST Diagnosis: Cellulitis of right lower limb[ICD10: L03.115] Kathleen APPIAH DO [facility] CPT-4: 80424 03/18/2018 ([id number]) OFFICE/OUTPATIENT VISIT EST Diagnosis: Cellulitis of right lower limb[ICD10: L03.115] Kathleen APPIAH DO [facility] CPT-4: 47307 03/15/2018 ([id number]) OFFICE/OUTPATIENT VISIT EST Diagnosis: Acute sinusitis, unspecified[ICD10: J01.90] Kathleen APPIAH DO [facility] CPT-4: 14329 02/11/2018 ([id number]) NURSE/OUTPATIENT VISIT EST Diagnosis: Otitis media, unspecified, right ear[ICD10: H66.91] María Elena APPIAH [employer] [facility] CPT-4: 57750 02/01/2018 ([id number]) OFFICE/OUTPATIENT VISIT EST Diagnosis: Acute suppurative otitis media without spontaneous rupture of ear drum, left ear[ICD10: H66.002] Diagnosis: Abnormal weight gain[ICD10: R63.5] Diagnosis: Intervertebral disc disorders with radiculopathy, 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] Kathleen APPIAH DO [facility] CPT-4: 99 214 01/30/2018 ([id number]) PREV VISIT EST AGE 40-64 Diagnosis: Encounter for general adult medical examination without abnormal findings[ICD10: Z00.00] Diagnosis: Essential (primary) hypertension[ICD10: I10] Diagnosis: Mixed hyperlipidemia[ICD10: E78.2] Diagnosis: Type 2 diabetes mellitus with hyperglycemia[ICD10: E11.65] Diagnosis: 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] María Elena APPIAH [employer] [facility] CPT-4: 07197 12/18/2017 ([id number]) OFFICE/OUTPATIENT VISIT EST Diagnosis: Cellulitis of right toe[ICD10: L03.031] Diagnosis: Mixed hyperlipidemia[ICD10: E78.2] Diagnosis: Essential (primary) hypertension[ICD10: I10] Diagnosis: Hyperglycemia, unspecified[ICD10: R73.9] Diagnosis: Nontoxic goiter, 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] María Elena APPIAH [employer] [facility] CPT-4: 95644 12/10/2017 ([id number]) OFFICE/OUTPATIENT VISIT EST Diagnosis: Cellulitis of right toe[ICD10: L03.031] Diagnosis: Acute sinusitis, unspecified[ICD10: J01.90] Kathleen APPIAH [employer] [facility] CPT-4: 36483 12/07/2017 OFFICE/OUTPATIENT VISIT EST Diagnosis: Acute maxillary sinusitis, unspecified[ICD10: J01.00] Kathleen APPIAH [employer] [facility] CPT-4: 18699 10/08/2017 ([id number]) OFFICE/OUTPATIENT VISIT EST Diagnosis: Cellulitis of left toe[ICD10: L03.032] María Elena APPIAH [employer] [facility] CPT-4: 28221 09/21/2017 ([id number]) OFFICE/OUTPATIENT VISIT EST Diagnosis: Insomnia, unspecified[ICD10: G47.00] Diagnosis: Major depressive disorder, single episode, unspecified[ICD10: F32.9] Diagnosis: Anxiety disorder, unspecified[ICD10: F41.9] Diagnosis: Cellulitis of left toe[ICD10: L03.032] Diagnosis: Snoring[ICD10: R06.83] Kathleen APPIAH DO [facility] CPT-4: 90857 09/20/2017 ([id number]) OFFICE/OUTPATIENT VISIT EST Diagnosis: Cellulitis of left toe[ICD10: L03.032] María Elena Waymindivictorino MONTEROQ TANIA APPIAH [employer] [facility] CPT-4: 84731 07/19/2017 OFFICE/OUTPATIENT VISIT EST Diagnosis: Chronic sinusitis, unspecified[ICD10: J32.9] Diagnosis: Generalized hyperhidrosis[ICD10: R61] Kathleen APPIAH [employer] [facility] CPT-4: 29040 06/27/2017 ([id number]) OFFICE/OUTPATIENT VISIT EST Diagnosis: Intervertebral disc disorders with radiculopathy, 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] Diagnosis: Primary insomnia[ICD10: F51.01] Diagnosis: Other fatigue[ICD10: R53.83] María Elena JUARES LucioJj TD [employer] [facility] CPT-4: 92793 04/10/2017 ([id number]) OFFICE/OUTPATIENT VISIT EST Diagnosis: Primary insomnia[ICD10: F51.01] Diagnosis: Localized edema[ICD10: R60.0] Diagnosis: 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] María Elena JUARES LucioJj TD [facility] CPT-4: 96143 12/13/2016 ([id number]) OFFICE/OUTPATIENT VISIT EST Diagnosis: Primary insomnia[ICD10: F51.01] Diagnosis: Cyanosis[ICD10: R23.0] María Elena JUARES Fabiola Bazzi [employer] [facility] CPT-4: 67670 11/01/2016 ([id number]) PREV VISIT EST AGE 40-64 Diagnosis: Encounter for gynecological examination (general) (routine) without abnormal findings[ICD10: Z01.419] Diagnosis: Encounter for routine child health examination without abnormal findings[ICD10: Z00.129] María Elena APPIAH DO [employer] CPT-4: 85523 10/17/2016 ([id number]) OFFICE/OUTPATIENT VISIT EST Diagnosis: Other seasonal allergic rhinitis[ICD10: J30.2] María Elena APPIAH DO [facility] CPT-4: 03961 10/10/2016 ([id number]) OFFICE/OUTPATIENT VISIT EST Diagnosis: Pain in left arm[ICD10: M79.602] Diagnosis: Contact with and (suspected) exposure to potentially hazardous body fluids[ICD10: Z77.21] Diagnosis: 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, 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] Diagnosis: Unspecified open wound, right foot, sequela[ICD10: S91.301S] María Elena APPIAH DO [facility] CPT-4: 68511 09/19/2016 ([id number]) OFFICE/OUTPATIENT VISIT EST Diagnosis: Chronic sinusitis, unspecified[ICD10: J32.9] Diagnosis: Allergic rhinitis due to pollen[ICD10: J30.1] María Elena APPIAH DO [facility] CPT-4: 19517 08/24/2016 ([id number]) OFFICE/OUTPATIENT VISIT EST Diagnosis: Acute bronchitis, unspecified[ICD10: J20.9] María Elena APPIAH DO [facility] CPT-4: 71433 08/16/2016 ([id number]) OFFICE/OUTPATIENT VISIT EST Diagnosis: Otitis media, unspecified, right ear[ICD10: H66.91] Diagnosis: Acute bronchitis, unspecified[ICD10: J20.9] María Elena APPIAH DO [employer] CPT-4: 59367 08/10/2016 ([id number]) OFFICE/OUTPATIENT VISIT EST Diagnosis: Acute recurrent sinusitis, unspecified[ICD10: J01.91] Diagnosis: Allergic rhinitis due to pollen[ICD10: J30.1] María Elena APPIAH DO [facility] CPT-4: 07744 08/02/2016 ([id number]) OFFICE/OUTPATIENT VISIT EST Diagnosis: Pain in unspecified joint[ICD10: M25.50] María Elena APPIAH DO [facility] CPT-4: 97788 07/27/2016 OFFICE/OUTPATIENT VISIT EST Diagnosis: 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] Diagnosis: Acute recurrent sinusitis, unspecified[ICD10: J01.91] Diagnosis: Other fatigue[ICD10: R53.83] Diagnosis: Primary insomnia[ICD10: F51.01] Diagnosis: Pain in unspecified joint[ICD10: M25.50] María Elena APPIAH DO [facility] CPT-4: 24434 07/20/2016 ([id number]) OFFICE/OUTPATIENT VISIT EST Diagnosis: Blister (nonthermal), left great toe, initial encounter[ICD10: S90.422A] Loan APPIAH [employer] [facility] CPT-4: 19582 ([id number]) OFFICE/OUTPATIENT VISIT EST Diagnosis: Acute recurrent sinusitis, unspecified[ICD10: J01.91] María Elena APPIAH DO [facility] CPT-4: 01268 05/25/2016 ([id number]) OFFICE/OUTPATIENT VISIT EST Diagnosis: Acute sinusitis, unspecified[ICD10: J01.90] María Elena APPIAH DO [facility] CPT-4: 53268 04/26/2016 ([id number]) OFFICE/OUTPATIENT VISIT EST Diagnosis: Flushing[ICD10: R23.2] Diagnosis: Primary insomnia[ICD10: F51.01] María Elena APPIAH DO [facility] CPT-4: 12289 03/02/2016 ([id number]) OFFICE/OUTPATIENT VISIT EST Diagnosis: Other seasonal allergic rhinitis[ICD10: J30.2] Loan APPIAH DO [facility] CPT-4: 31811 02/09/2016 ([id number]) OFFICE/OUTPATIENT VISIT EST Diagnosis: Primary insomnia[ICD10: F51.01] Diagnosis: Urinary tract infection, site not specified[ICD10: N39.0] María Elena APPIAH [facility] CPT-4: 18887 01/24/2016 ([id number]) OFFICE/OUTPATIENT VISIT EST Diagnosis: Other specified disorders of Eustachian tube, bilateral[ICD10: H69.83] Diagnosis: Allergic rhinitis, unspecified[ICD10: J30.9] Loan APPIAH [facility] CPT-4: 67559 12/23/2015 ([id number]) OFFICE/OUTPATIENT VISIT EST Diagnosis: Acute recurrent sinusitis, unspecified[ICD10: J01.91] Diagnosis: 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] Diagnosis: Allergic rhinitis, unspecified[ICD10: J30.9] María Elena APPIAH [facility] CPT-4: 03508 12/08/2015 ([id number]) OFFICE/OUTPATIENT VISIT EST Diagnosis: Allergic rhinitis, unspecified[ICD10: J30.9] Diagnosis: Pain in unspecified joint[ICD10: M25.50] María Elena APPIAH [facility] CPT-4: 83245 10/07/2015 ([id number]) OFFICE/OUTPATIENT VISIT EST Diagnosis: Essential (primary) hypertension[ICD10: I10] María Elena APPIAH [facility] CPT-4: 58025 10/06/2015 OFFICE/OUTPATIENT VISIT EST Diagnosis: Localized enlarged lymph nodes[ICD10: R59.0] Diagnosis: Local infection of the skin and subcutaneous tissue, unspecified[ICD10: L08.9] June Flores MARÍA ELENA APPIAH [facility] CPT- 4: 77176 09/14/2015 ([id number]) OFFICE/OUTPATIENT VISIT EST Diagnosis: Essential (primary) hypertension[ICD10: I10] Diagnosis: Actinic keratosis[ICD10: L57.0] María Elena APPIAH [facility] CPT-4: 44914 09/07/2015 ([id number]) OFFICE/OUTPATIENT VISIT EST Diagnosis: Essential (primary) hypertension[ICD10: I10] Diagnosis: Acute stress reaction[ICD10: F43.0] María Elena APPIAH DO [facility] CPT-4: 83022 08/18/2015 ([id number]) OFFICE/OUTPATIENT VISIT EST Diagnosis: Essential (primary) hypertension[ICD10: I10] María Elena APPIAH DO [facility] CPT-4: 46151 07/07/2015 ([id number]) OFFICE/OUTPATIENT VISIT EST Diagnosis: Essential (primary) hypertension[ICD10: I10] María Elena APPIAH DO [facility] CPT-4: 19057 06/24/2015 ([id number]) OFFICE/OUTPATIENT VISIT EST Diagnosis: Essential (primary) hypertension[ICD10: I10] María Elena APPIAH DO [facility] CPT-4: 41623 06/21/2015 ([id number]) OFFICE/OUTPATIENT VISIT EST Diagnosis: Essential (primary) hypertension[ICD10: I10] Diagnosis: Mixed hyperlipidemia[ICD10: E78.2] Diagnosis: Acute stress reaction[ICD10: F43.0] Diagnosis: Primary insomnia[ICD10: F51.01] María Elena APPIAH DO [facility] CPT-4: 76078 06/16/2015 ([id number]) OFFICE/OUTPATIENT VISIT EST Diagnosis: INSOMNIA NOS[ICD9: 780.52] Diagnosis: HYPERTENSION[ICD9: 401.9] Diagnosis: Stress reaction[ICD9: 308.9] María Elena APPIAH DO [facility] CPT-4: 59648 06/02/2015 ([id number]) OFFICE/OUTPATIENT VISIT EST Diagnosis: HYPERTENSION[ICD9: 401.9] Diagnosis: Stress reaction[ICD9: 308.9] María Elena APPIAH DO [facility] CPT-4: 13133 05/20/2015 ([id number]) OFFICE/OUTPATIENT VISIT EST Diagnosis: Skin lesion[ICD9: 709.9] 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] María Elena APPIAH DO [facility] CPT-4: 78736 05/10/2015 ([id number]) OFFICE/OUTPATIENT VISIT EST Diagnosis: SINUSITIS, ACUTE[ICD9: 461.9] Diagnosis: ALLERGIC RHINITIS[ICD9: 477.9] Diagnosis: DERMATITIS NOS[ICD9: 692.9] María Elena REHMAN DO [facility] CPT-4: 07837 03/16/2015 OFFICE/OUTPATIENT VISIT EST Diagnosis: Otitis media[ICD9: 382.9] Diagnosis: SINUSITIS, ACUTE[ICD9: 461.9] June APPIAH DO [facility] CPT-4: 57108 09/11/2014 ([id number]) OFFICE/OUTPATIENT VISIT EST Diagnosis: HYPERLIPIDEMIA NEC/NOS[ICD9: 272.4] María Elena APPIAH DO [facility] CPT-4: 41375 08/31/2014 ([id number]) OFFICE/OUTPATIENT VISIT EST Diagnosis: - I - HYPERTENSION[ICD9: 401.9] Diagnosis: HYPERLIPIDEMIA NEC/NOS[ICD9: 272.4] María Elena APPIAH DO [facility] CPT-4: 05001 08/27/2014 ([id number]) OFFICE/OUTPATIENT VISIT EST Diagnosis: ABDOMINAL PAIN[ICD9: 789.00] Diagnosis: DYSPEPSIA[ICD9: 536.8] Diagnosis: Thoracic back pain[ICD9: 724.1] María Elena APPIAH DO [facility] CPT-4: 54423 07/21/2014 ([id number]) OFFICE/OUTPATIENT VISIT EST Diagnosis: ALLERGIC RHINITIS[ICD9: 477.9] María Elena APPIAH DO [facility] CPT-4: 70513 07/15/2014 ([id number]) OFFICE/OUTPATIENT VISIT EST Diagnosis: EDEMA[ICD9: 782.3] Diagnosis: Chronic insomnia[ICD9: 780.52] María Elena APPIAH DO [facility] CPT-4: 84833 05/18/2014 ([id number]) OFFICE/OUTPATIENT VISIT EST Diagnosis: Thyromegaly[ICD9: 240.9] Diagnosis: - I - HYPERTENSION[ICD9: 401.9] Diagnosis: ROUTINE MEDICAL EXAM[ICD9: V70.0] Diagnosis: EDEMA[ICD9: 782.3] María Elena APPIAH [facility] CPT-4: 30472 05/14/2014 OFFICE/OUTPATIENT VISIT EST Diagnosis: BRONCHITIS, ACUTE[ICD9: 466.0] Diagnosis: SINUSITIS, ACUTE[ICD9: 461.9] María Elena APPIAH [facility] CPT-4: 21614 04/21/2014 OFFICE/OUTPATIENT VISIT EST Diagnosis: SINUSITIS, ACUTE[ICD9: 461.9] June Sandra APPIAH [facility] CPT-4: 67237 03/04/2014 ([id number]) OFFICE/OUTPATIENT VISIT EST Diagnosis: VACCINE FOR TDAP[ICD10: Z23] María Elena [facility] CPT-4: 58510 02/27/2014 ([id number]) OFFICE/OUTPATIENT VISIT EST Diagnosis: Seborrheic keratoses, inflamed[ICD9: 702.11] Diagnosis: ACTINIC KERATOSIS[ICD9: 702.0] Diagnosis: INSOMNIA NOS[ICD9: 780.52] María Elena PANDYA [facility] CPT-4: 19939 01/13/2014 OFFICE/OUTPATIENT VISIT EST 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] Diagnosis: ALLERGIC RHINITIS[ICD9: 477.9] Diagnosis: Serous otitis media[ICD9: 381.4] María Elena APPIAH [facility] CPT-4: 62018 12/24/2013 ([id number]) OFFICE/OUTPATIENT VISIT EST Diagnosis: SINUSITIS, ACUTE[ICD9: 461.9] Diagnosis: ALLERGIC RHINITIS[ICD9: 477.9] 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] María Elena APPIAH [facility] CPT-4: 87298 11/12/2013 ([id number]) OFFICE/OUTPATIENT VISIT EST Diagnosis: ALLERGIC RHINITIS[ICD9: 477.9] Diagnosis: SINUSITIS, ACUTE[ICD9: 461.9] María Elena APPIAH [facility] CPT-4: 93432 10/21/2013 ([id number]) OFFICE/OUTPATIENT VISIT EST Diagnosis: ASYMPTOMATIC VARICOSE VEINS[ICD9: 454.9] Diagnosis: INSOMNIA NOS[ICD9: 780.52] María Elena PANDYA [facility] CPT-4: 90263 09/22/2013 OFFICE/OUTPATIENT VISIT EST Diagnosis: SINUSITIS, ACUTE[ICD9: 461.9] June Sandra APPIAH 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 CPT-4: 16411 08/04/2013 ([id number]) OFFICE/OUTPATIENT VISIT EST Diagnosis: Cervicalgia[ICD9: 723.1] Diagnosis: SPASM OF MUSCLE[ICD9: 728.85] Diagnosis: CEPHALGIA, TENSION[ICD9: 307.81] María Elena APPIAH [facility] CPT-4: 85000 07/23/2013 ([id number]) OFFICE/OUTPATIENT VISIT EST 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] Diagnosis: ALLERGIC RHINITIS[ICD9: 477.9] María Elena APPIAH [facility] CPT-4: 48694 06/23/2013 ([id number]) OFFICE/OUTPATIENT VISIT EST Diagnosis: ALLERGIC RHINITIS[ICD9: 477.9] Diagnosis: ACUTE SEROUS OTITIS MEDIA[ICD9: 381.01] 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] María Elena APPIAH [facility] CPT-4: 21290 05/26/2013 ([id number]) OFFICE/OUTPATIENT VISIT EST Diagnosis: HYPERTENSION[ICD9: 401.9] Diagnosis: EDEMA[ICD9: 782.3] Diagnosis: Serous otitis media[ICD9: 381.4] María Elena JUARES LucioJj [facility] CPT-4: 66605 04/16/2013 ([id number]) OFFICE/OUTPATIENT VISIT EST Diagnosis: SINUSITIS, ACUTE[ICD9: 461.9] Diagnosis: ALLERGIC RHINITIS[ICD9: 477.9] Diagnosis: EDEMA[ICD9: 782.3] Diagnosis: Thyromegaly[ICD9: 240.9] Diagnosis: MALAISE AND FATIGUE[ICD9: 780.79] María Elena Lopez LucioJj [facility] CPT-4: 90895 03/05/2013 ([id number]) OFFICE/OUTPATIENT VISIT EST Diagnosis: PAIN, LOWER BACK[ICD9: 724.2] Diagnosis: SPASM OF MUSCLE[ICD9: 728.85] María Elena JUARES LucioJj [facility] CPT-4: 27773 12/23/2012 OFFICE/OUTPATIENT VISIT EST Diagnosis: Low back pain[ICD9: 724.2] Lashawn Hicks K[facility]STYN [facility] CPT-4: 02106 12/16/2012 ([id number]) OFFICE/OUTPATIENT VISIT EST Diagnosis: PAIN, LOWER BACK[ICD9: 724.2] Diagnosis: SCIATICA[ICD9: 724.3] Diagnosis: Lumbar herniated disc[ICD9: 722.10] María Elena COLON LucioJj [facility] CPT-4: 22343 12/09/2012 ([id number]) OFFICE/OUTPATIENT VISIT EST Diagnosis: PAIN, LOWER BACK[ICD9: 724.2] Diagnosis: SCIATICA[ICD9: 724.3] Diagnosis: LUMBAR DISC DISPLACEMENT[ICD9: 722.10] María Elena MARIN [facility]j [facility]: 28133 12/04/2012 OFFICE/OUTPATIENT VISIT EST Diagnosis: Pneumonia[ICD9: 486] aMry JUARES LucioJj [facility] CPT-4: 66308 11/22/2012 ([id number]) OFFICE/OUTPATIENT VISIT EST Diagnosis: PNEUMONIA, ORGANISM[ICD9: 486] Diagnosis: Exacerbation of RAD (reactive airway disease)[ICD9: 493.92] María Elena JUARES LucioJj TD G[facility] CPT-4: 57389 11/21/2012 OFFICE/OUTPATIENT VISIT EST Diagnosis: HYPERTENSION[ICD9: 401.9] Diagnosis: Cephalgia[ICD9: 784.0] Lashawn APPIAH DO [facility] CPT-4: 61963 10/29/2012 ([id number]) OFFICE/OUTPATIENT VISIT EST Diagnosis: MALAISE AND FATIGUE[ICD9: 780.79] Diagnosis: ARTHRALGIA-MULTIPLE SITES[ICD9: 719.49] María Elena Waymindivictorino ValdesJj TD [facility] CPT-4: 70513 10/14/2012 ([id number]) OFFICE/OUTPATIENT VISIT EST Diagnosis: URINARY FREQUENCY[ICD9: 788.41] María Elena Seamusmindivictorino ELLISMARÍA ELENA LucioJj TD [facility] CPT-4: 76552 09/27/2012 ([id number]) OFFICE/OUTPATIENT VISIT EST Diagnosis: MALAISE AND FATIGUE[ICD9: 780.79] Diagnosis: ARTHRALGIA-MULTIPLE SITES[ICD9: 719.49] María Elena Seamusmindivictorino ValdesJj TD [facility] CPT-4: 14102 09/25/2012 ([id number]) OFFICE/OUTPATIENT VISIT EST Diagnosis: SINUSITIS, ACUTE[ICD9: 461.9] 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] María Elena ELLISLINE LucioJj TD [facility] CPT-4: 99267 08/29/2012 OFFICE/OUTPATIENT VISIT EST Diagnosis: ACTINIC KERATOSIS[ICD9: 702.0] Diagnosis: Inflamed seborrheic keratosis[ICD9: 702.11] Diagnosis: Skin cancer of face[ICD9: 173.31] Diagnosis: HYPERTENSION[ICD9: 401.9] María Elenamarcella MONTEROQUELINE LucioJj [facility] CPT-4: 93858 08/12/2012 ([id number]) OFFICE/OUTPATIENT VISIT EST Diagnosis: ARTHRALGIA-MULTIPLE SITES[ICD9: 719.49] Diagnosis: GOUT[ICD9: 274.9] Diagnosis: HYPERTENSION[ICD9: 401.9] Diagnosis: Tachycardia[ICD9: 785.0] María Elena JUARES LucioJj [facility] CPT-4: 86590 05/06/2012 ([id number]) OFFICE/OUTPATIENT VISIT EST Diagnosis: INSOMNIA NOS[ICD9: 780.52] María Elena JUARES LucioJj KRISTYN PANDYA [facility] CPT-4: 34120 04/03/2012 ([id number]) OFFICE/OUTPATIENT VISIT EST Diagnosis: INSOMNIA NOS[ICD9: 780.52] Diagnosis: HYPERTENSION[ICD9: 401.9] Diagnosis: MIGRAINE NOS/NOT INTRCBL[ICD9: 346.90] María Elena MARIN LucioJj TD [facility] CPT-4: 59493 03/19/2012 ([id number]) OFFICE/OUTPATIENT VISIT EST Diagnosis: CELLULITIS[ICD9: 682.9] Diagnosis: Ankle pain[ICD9: 719.47] Diagnosis: HYPERTENSION[ICD9: 401.9] María Elena Hicks [facility]US MOJICARose Mary [facility] CPT-4: 41432 02/20/2012 ([id number]) OFFICE/OUTPATIENT VISIT EST Diagnosis: MIGRAINE NOS/NOT INTRCBL[ICD9: 346.90] Diagnosis: Vomiting[ICD9: 787.03] María Elena JUARES LucioJj [facility] CPT-4: 33794 01/30/2012 ([id number]) OFFICE/OUTPATIENT VISIT EST Diagnosis: EDEMA[ICD9: 782.3] Diagnosis: HYPERTENSION[ICD9: 401.9] Diagnosis: ALLERGIC RHINITIS[ICD9: 477.9] Diagnosis: ARTHRALGIA-MULTIPLE SITES[ICD9: 719.49] María Elena REED LucioJj TD [facility] CPT-4: 28839 01/24/2012 ([id number]) OFFICE/OUTPATIENT VISIT EST Diagnosis: SPASM OF MUSCLE[ICD9: 728.85] Diagnosis: Thoracic back pain[ICD9: 724.1] Diagnosis: Cervical pain[ICD9: 723.1] María Elena JUARES LucioJj KRISTYN PANDYA [facility] CPT-4: 95126 01/10/2012 OFFICE/OUTPATIENT VISIT EST Diagnosis: PAIN, LOWER BACK[ICD9: 724.2] Diagnosis: LUMBAR DISC DISPLACEMENT[ICD9: 722.10] María Elena MARIN LucioJj [facility] CPT-4: 50372 12/11/2011 OFFICE/OUTPATIENT VISIT EST Diagnosis: MIGRAINE NOS/NOT INTRCBL[ICD9: 346.90] Diagnosis: SINUSITIS, ACUTE[ICD9: 461.9] María Elena ValdesJj TD [facility] CPT-4: 74697 11/09/2011 OFFICE/OUTPATIENT VISIT EST Diagnosis: MIGRAINE NOS/NOT INTRCBL[ICD9: 346.90] Diagnosis: LYMPHADENOPATHY[ICD9: 785.6] María Elena ELLISLINE LucioJj TD [facility] CPT-4: 60215 09/13/2011 OFFICE/OUTPATIENT VISIT EST Diagnosis: MALAISE AND FATIGUE[ICD9: 780.79] Diagnosis: ARTHRALGIA-MULTIPLE SITES[ICD9: 719.49] María Elena Seamusdawn Hicks MARIVELVICTORINO [facility] CPT-4: 56869 08/31/2011 OFFICE/OUTPATIENT VISIT EST Diagnosis: SINUSITIS, ACUTE[ICD9: 461.9] María Elena Seamusdawn JUARES LucioJj [facility] CPT-4: 51896 07/20/2011 OFFICE/OUTPATIENT VISIT EST Diagnosis: HYPERTENSION[ICD9: 401.9] Diagnosis: PAIN, LOWER BACK[ICD9: 724.2] Diagnosis: SPASM OF MUSCLE[ICD9: 728.85] María Elena Waymindivictorino MONTEROMARÍA ELENA LucioJj TD [facility] CPT-4: 88156 07/06/2011 OFFICE/OUTPATIENT VISIT EST Diagnosis: MIGRAINE NOS/NOT INTRCBL[ICD9: 346.90] Diagnosis: HYPERTENSION[ICD9: 401.9] María Elena Seamusdawn Hicks SEAMUS DAWN [facility] CPT-4: 52169 05/22/2011 OFFICE/OUTPATIENT VISIT EST Diagnosis: SINUSITIS, ACUTE[ICD9: 461.9] Diagnosis: MIGRAINE NOS/NOT INTRCBL[ICD9: 346.90] Diagnosis: Dehydration[ICD9: 276.51] Diagnosis: Vomiting[ICD9: 787.03] María Elena [facility] CPT-4: 54649 05/09/2011 ([id number]) OFFICE/OUTPATIENT VISIT EST María Elena Orender [facility] CPT-4: 45471 02/14/2011 ([id number]) OFFICE/OUTPATIENT VISIT EST María Elena MONTEROQ [facility] CPT-4: 85552 02/03/2011 ([id number]) OFFICE/OUTPATIENT VISIT EST María Elena MONTEROQ [facility] CPT-4: 69211 01/31/2011 ([id number]) OFFICE/OUTPATIENT VISIT EST María Elena Ortaer [facility] CPT-4: 73127 01/25/2011 ([id number]) OFFICE/OUTPATIENT VISIT EST María Elenamarcella Ortaer [facility] CPT-4: 26627 01/18/2011 ([id number]) OFFICE/OUTPATIENT VISIT EST María Elena MONTEROQ [facility] CPT-4: 14512 11/29/2010 ([id number]) OFFICE/OUTPATIENT VISIT, EST María Elena Ortaer [facility] CPT-4: 89373 10/10/2010 ([id number]) OFFICE/OUTPATIENT VISIT, EST María Elenamarcella Ortaer [facility] CPT-4: 83828 06/07/2010 ([id number]) OFFICE/OUTPATIENT VISIT, EST María Elena MONTERO [facility] CPT-4: 73179 04/27/2010 ([id number]) OFFICE/OUTPATIENT VISIT, EST María Elena Ortaer [facility] CPT-4: 83627 04/05/2010 ([id number]) OFFICE/OUTPATIENT VISIT, EST María Elenamarcella Ortaer [facility] CPT-4: 48899 03/09/2010 ([id number]) OFFICE/OUTPATIENT VISIT, EST María Elenamarcella Ortaer [facility] CPT-4: 03482 03/03/2010 ([id number]) OFFICE/OUTPATIENT VISIT, EST María Elena Ortaer [facility] CPT-4: 31809 01/17/2010 ([id number]) PREV VISIT, EST, AGE 40-64 María Elena [facility] CPT-4: 15131 12/27/2009 Plan of Care Planned Activity Notes [...] ICD-10 : S90.821A 02/12/2020 Appointment: Kathleen Zuniga [address] [place], [place] [id number] ACUTE ILLNESS 02/12/2020 Visit Diagnosis Plan: Essential [...] 01/13/2020 Appointment: María Elena Appiah WPtel: [phone] [facility] FOLLOW UP 01/13/2020 Patient Education: lisinopril- [employer] [id number] Completed 01/13/2020 Patient Education: glimepiride- [employer] [id number] Completed 01/13/2020 Appointment[facility] Kyl[facility]egael [phone] [id number] [facility] 11/26/2019 Visit Diagnosis Plan: Type 2 diabetes mellitus with hy perglycemia Discussion: Januvia 100mg daily Glimepride 2mg po BID Accuchecks BID Call in 2 weeks with BS readings Get formulary book ICD-9 : 250.02 ICD-10 : E11.65 11/20/2019 Appointment: Td María Elena S[facility]el[phone] [id number] [facility] FOLLOW UP 11/20/2019 Patient Education: glimepiride- [employer] [id number] Completed 11/20/2019 Patient Education: Januvia- [employer] [id number] Completed 11/20/2019 Visit Diagnosis Plan: Ingrowing nail [...] ICD-10 : E11.65 10/07/2019 [facility]ment[id number] [facility] 10/07/2019 Visit Diagnosis Plan: [...] E11.65 09/30/2019 Appointment: María Elena Appiah WPtel: [address] [place] [address] US CHECK UP 09/30/2019 Patient Education: Premarin- [employer] [id number] [email or web address]/resources/getResource/61/93208i00-a622-4hyc-w9 Completed 09/30/2019 Appointment: María Elena Appiah WPtel: [address] [place], [place] [phone] US LAB 09/29/2019 Appointment: María Elena Appiah WPtel: [address] [place], [place] [phone] Won't have the new insurance till Sep [...] W06.XXXS 05/28/2019 Appointment: María Elena Appiah WPtel: [address] [place], [place] [phone] US FOLLOW UP 05/28/2019 Appointment: María Elena Appiah WPtel: [address] [place] [address] US BP CHECK 05/19/2019 Visit Diagnosis Plan: [...] Z79.890 01/22/2019 Appointment: María Elena Appiah WPtel: [address] [place], [place] [address] US FOLLOW UP 01/22/2019 Patient Education: estradiol- [employer] Coupon [id number] https://www.Yellow Pages/samplemd/resources/getResource/61/170l699n-9ee4-0j28-9a Completed 01/22/2019 Appointment: María Elena Appiah WPtel: [address] [place], [place] [phone] US CANCELED 01/20/2019 Appointment: María Elena Appiah WPtel: [address] [place], [place] [phone] US LM NO SHOW 01/06/2019 Appointment: María Elena Appiah WPtel: [address] [place], [place] [phone] US CANCELED 10/17/2018 Appointment: María Elena Appiah WPtel: [address] [place], [place] [id number] [place] BP CHECK 10/09/2018 Visit Diagnosis Plan: [...] I10 09/30/2018 Appointment: María Elena Appiah WPtel: [address] [place], [place] [phone] US FOLLOW UP 09/30/2018 Visit Diagnosis Plan: [...] F51.01 08/27/2018 Appointment: María Elena Appiah WPtel: [address] [place], [place] [id number] ACUTE ILLNESS 08/27/2018 Appointment: María Elena Appiah WPtel: [address] [place], [place] [id number] [place] Patient stated she went out to [...] Tyle... 08/09/2018 Appointment: María Elena Appiah WPtel: [address] [place] [address] ACUTE ILLNESS 08/09/2018 Appointment: María Elena Appiah WPtel: [address] [place] [address] NO SHOW 08/08/2018 Visit Diagnosis Plan: Anxiety [...] B35.4 07/22/2018 Appointment: María Elena Appiah WPtel: [address] [place] [address] ACUTE ILLNESS 07/22/2018 Appointment: María Elena Appiah WPtel: [address] [place] [address] US INJECTION 06/19/2018 Patient Education: Patient Medication [...] ICD-10 : L03.031 06/17/2018 Appointment: Kathleen Zuniga [address] [place], [place] [phone] ACUTE ILLNESS 06/17/2018 Patient Education: Patient Medication [...] ICD-10 : B02.9 05/16/2018 Appointment: Kathleen Zuniga [address] [place] [address] ACUTE ILLNESS 05/16/2018 Patient Education: Patient Medication [...] ICD-10 : L03.115 03/20/2018 Appointment: Kathleen Zuniga [address] [place], [place] [address] FOLLOW UP 03/20/2018 Patient Education: Patient Medication [...] ICD-10 : L03.115 03/18/2018 Appointment: Kathleen Zuniga [address] [place], [place] [id number] FOLLOW UP 03/18/2018 Patient Education: Patient Medication [...] 03/15/2018 Appointment: Kathleen Zuniga [address] [place] [address] ACUTE ILLNESS 03/15/2018 Patient Education: Patient Medication [...] 02/11/2018 Appointment: Kathleen Zuniga [address] [place] [address] ACUTE ILLNESS 02/11/2018 Patient Education: Patient Medication Summary Completed 02/11/2018 Appointment: María Elena Appiah WPtel: [facility] INJECTION 02/01/2018 Patient Education: Patient Medication Summary [...] 01/30/2018 Appointment: Kathleen Zuniga [address] [place] [address] ACUTE ILLNESS 01/30/2018 Patient Education: Patient Medication [...] E11.65 12/18/2017 Appointment: María Elena Appiah WPtel: [facility] Annual Well Visit 12/18/2017 Patient Education: Patient Medication Summary Completed 12/18/2017 Care Plan: Referral Order SNOMED-CT : [id number] Pending 12/18/2017 Appointment: María Elena Appiah WPtel: [facility] INJECTION 12/10/2017 Patient Education: Patient Medication Summary [...] ICD-10 : L03.031 12/07/2017 Appointment: Kathleen Zuniga [address] [place] [address] ACUTE ILLNESS 12/07/2017 Patient Education: Patient Medication [...] ICD-10 : J01.00 10/08/2017 Appointment: Kathleen Zuniga [address] [place], [place] [id number] ACUTE ILLNESS 10/08/2017 Patient Education: Patient Medication Summary Completed 10/08/2017 Appointment: María Elena Appiah WPtel: [address] [facility] [place] INJECTION 09/21/2017 Patient Education: Patient Medication [...] : R06.83 09/20/2017 Appointment: Kathleen Zuniga [address] [employer] [id number] ACUTE ILLNESS 09/20/2017 Patient Education: Patient Medication [...] : L60.0 08/29/2017 Appointment: Kathleen Zuniga [address] [employer] [id number] OFFICE SURGERY 08/29/2017 Patient Education: Patient Medication Summary Completed 08/29/2017 Visit Diagnosis Plan: Actinic keratosis Discussion: Cr yotherapy as above ICD-9 : 702.0 ICD-10 : L57.0 08/01/2017 Appointment: María Elena Appiah WPtel: [address] [place] [address] OFFICE SURGERY 08/01/2017 Patient Education: Patient Medication Summary Completed 08/01/2017 Appointment: María Elena Appiah WPtel: [address] [place] [address] PATIENT THOUGHT APPOINTMENT WAS TOMORROW 07/26/17 CALLED 15 MINUTES BEFORE APPT TO SAY SHE DIDN'T HAVE ANYONE TO COVER HER BUSINESS AND WOULD NOT MAKE IT NO SHOW 07/25/2017 Visit Diagnosis Plan: Cellulitis of left toe Discussio n: Clindamycin and notify if worsening or persistis ICD-9 : 681.10 ICD-10 : L03.032 07/19/2017 Appointment: María Elena Appiah WPtel: [address] [place] [address] MEDICATION REVIEW 07/19/2017 Patient Education: Patient Medication Summary Completed 07/19/2017 Appointment: María Elena Appiah WPtel: [address] [place] [address] CANCELED 07/04/2017 Visit Diagnosis Plan: Generalized hyperhidrosis Discus ian: CBC, CMP, TSH, free T4 ordered to assess. will review labs. ICD-9 : 780.8 ICD-10 : R61 06/27/2017 Visit Diagnosis Plan: Chronic sinusitis, unspecified D iscussion: Referral sent to dr. albarado in [place] per patient request. patient has been treated multiple times for sinus infections with no recovery. patient was seen by dr sanchez in the past with no interventions. patient has deviated septum which may be affecting her sinuses. 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, including hip Discussion: Shave removal of above lesio n--sent to pathology ICD-9 : 216.7 ICD-10 : D23.72 01/24/2017 Appointment: María Elena Appiah WPtel: [address] [place], [place] [phone] [place] 01/23 confirmed ~sl OFFICE SURGERY 01/24/2017 Patient Education: Patient Medication Summary Completed 01/24/2017 Appointment: Loan Sánchez [address] [place] [address] 01/09 rescheduled~sl RESCHEDULED 01/15/2017 Visit Diagnosis Plan: [...] L81.4 12/13/2016 Appointment: María Elena Appiah WPtel: [address] [place], [place] [id number] 12/12 confirmed ~sl MEDICATION REVIEW 12/13/2016 Patient Education: Patient Medication Summary Completed 12/13/2016 Appointment: María Elena Appiah WPtel: [address] [place], [place] [phone] [place] rescheduled for 12/13/16 at 11am RESCHEDULED 0 12/06/2016 Appointment: María Elena Appiah WPtel: [address] [place], [place] [phone] [place] CANCELED 11/23/2016 Patient Education: Patient Medication [...] F51.01 11/01/2016 Appointment: María Elena Appiah WPtel: [address] [place], [place] [id number] [place] 10/31 lm `sl 11/01 lm`sl MEDICATION REVIEW 017 Patient Education: Patient Medication Summary Completed 11/01/2016 Referral: Canelo Overton WPtel: [address] [id number] [place] Referral Initiated 10/30/2016 Visit Diagnosis Plan: [...] Z01.419 10/17/2016 Appointment: María Elena Appiah WPtel: [address] [place], [place] [phone] 10/16 confirmed ~sl PAP 10/17/2016 Patient Education: Patient Medication Summary Completed 10/17/2016 Care Plan: MAMMOGRAM SCREENING LOINC : 2 6347-5 Pending 10/17/2016 Visit Diagnosis Plan: Other seasonal allergic rhinitis Discussion: Decadron/Garamycin Nasal [place] Mix Too soon for steroid Retry zyrtec 10mg daily ICD-9 : 477.9 ICD-10 : J30.2 10/10/2016 Appointment: María Elena Appiah WPtel: [address] [place], [place] [phone] [place] FOLLOW UP 10/10/2016 Patient Education: Patient Medication Summary Completed 10/10/2016 Appointment: María Elena Appiah WPtel: [address] [place], [place] [phone] 10/02 reschedule `sl RESCHEDULED 10/02/2016 Visit Plan: See surgery for removal of n ew left arm lesion and right foot lesion Lyrica to use next month for left arm paresthesias Continue current meds Discussed sunscreen/sunblock combo 09/19/2016 Appointment: María Elena Appiah WPtel: [address] [place], [place] [phone] 09/18 confirmed ~sl FOLLOW UP 09/19/2016 Patient Education: Patient Medication Summary Completed 09/19/2016 Patient Education: Patient Medication Summary Completed 09/18/2016 Care Plan: MAMMOGRAM BOTH BREASTS LOINC : 13837-9 Pending 09/18/2016 Visit Plan: Discussed that needs [...] out sinuses 08/24/2016 Appointment: María Elena Appiahtel: [address] [place] [address] ACUTE ILLNESS 08/24/2016 Patient Education: Patient Medication Summary Completed 08/24/2016 Patient Education: Patient Medication Summary Completed 08/23/2016 Care Plan: MAMMOGRAM SCREENING LOINC : 2 6347-5 Pending 08/23/2016 Visit Plan: Finish doxycycline Add Breo 100/25 1 p BID for 2 weeks If not improving within next 2 days will get CXR 08/16/2016 Appointment: María Eelna Appiah WPtel: [address] [place] [address] ACUTE ILLNESS 08/16/2016 Patient Education: Patient Medication Summary Completed 08/16/2016 Visit Plan: Supportive care. Rest, Fluid s, Tylenol/Motrin prn fever or bodyaches. Notify if worsening symptoms. Doxycyline and Prednisone 08/10/2016 Appointment: María Elena Appiah WPtel: [address] [place] [address] 08/09 lm`sl....confirmed-sp FOLLOW UP 09/2015 Patient Education: Patient Medication Summary Completed 08/10/2016 Visit Plan: Saline nasal flushes prn. Ty lenol/Motrin prn headache. Notify if persists/symptoms worsening. Dexamethasone 8mg IM today May use coricedan and mucinex 08/02/2016 Appointment: María Elena Appiah WPtel: [address] [place] [address] ACUTE ILLNESS 08/02/2016 Patient Education: Patient Medication Summary Completed 08/02/2016 Visit Plan: Cryotherapy as above and lef t forearm lesion removal as above with 5-0 punch biopsy and sent to path Return in 10 days for suture removal 08/01/2016 Appointment: María Elena Appiah WPtel: [address] [place] [address] 07/31 confirmed`~sl OFFICE SURGERY 08/01/2016 Patient Education: Patient Medication Summary Completed 08/01/2016 Visit Plan: Stop clindamycin Check CBC, CMP, ESR now/STAT 07/27/2016 Appointment: María Elena Appiah WPtel: [address] [place] [address] ACUTE ILLNESS 07/27/2016 Patient Education: Patient Medication Summary Completed 07/27/2016 Visit Plan: Update lab and check ABIs to start with Will likely need cardiology evaluation to rule out PVD Clindamycin for 10 days Daily yogurt or probiotic Will return for removal of left arm lesions 07/20/2016 Appointment: María Elena Appiah WPtel: [address] [place] [address] ACUTE ILLNESS 07/20/2016 Patient Education: Patient Medication Summary Completed 07/20/2016 Patient Education: Patient Medication Summary Completed 07/20/2016 Care Plan: MAMMOGRAM BOTH BREASTS LOINC : 46823-9 Pending 07/20/2016 Care Plan: US EXAM CHEST LOINC : 49054-1 Pending 07/20/2016 Visit Plan: Wound culture collected from left great toe Appearance is somewhat staph like Rx as above Wound cleanser and skin care reviewed May need to add oral antibiotic if sores do not heal or continue to reoccur 07/06/2016 Appointment: Loan Sánchez [address] [place] [address] ACUTE ILLNESS 07/06/2016 Patient Education: Patient Medication Summary Completed 07/06/2016 Appointment: María Elena Appiah WPtel: [address] [place] [address] [place] INJECTION 05/25/2016 Patient Education: Patient Medication Summary Completed 05/25/2016 Visit Plan: Saline nasal flushes prn. Ty lenol/Motrin prn headache. Notify if persists/symptoms worsening. Dexamethasone and Rocephin given 04/26/2016 Appointment: María Elena Appiah WPtel: [address] [place] [address] ACUTE ILLNESS 04/26/2016 Patient Education: Patient Medication Summary Completed 04/26/2016 Visit Plan: Check CBC, CMP, TSH, FreeT4, HbA1C, estradiol, lipids in AM 03/02/2016 Appointment: María Elena Appiah WPtel: [address] [place] [address] 03/01 lm~sl ACUTE ILLNESS 03/02/2016 Patient Education: Patient Medication Summary Completed 03/02/2016 Visit Plan: Exam is nearly normal Needs to be taking daily antihistamine Would prefer to use oral steroids instead of shot but patient insist that oral steroids cause horrible headaches for her Will given kenalog IM instead 02/09/2016 Appointment: Loan Sánchez [address] [place] [address] ACUTE ILLNESS 02/09/2016 Patient Education: Patient Medication Summary Completed 02/09/2016 Visit Plan: Culture urine Macrobid DC xa nax Trial of Ativan 1mg q HS 01/24/2016 Appointment: María Elena Appiah WPtel: [address] [place] [address] ACUTE ILLNESS 01/24/2016 Patient Education: Patient Medication Summary Completed 01/24/2016 Visit Plan: No steroid or rocephin injec tion warranted Can have oral prednisone Continue current home regimen Needs to follow up with Dr Sanchez if problems persist 12/23/2015 Appointment: Loan Sánchez [address] [place] [address] ACUTE ILLNESS 12/23/2015 Patient Education: Patient Medication Summary Completed 12/23/2015 Visit Plan: Saline nasal flushes prn. Ty lenol/Motrin prn headache. Notify if persists/symptoms worsening. Kenalog 40mg IM today 12/08/2015 Appointment: María Elena Appiah WPtel: [address] [place] [address] 12/06 confirmed~sl ACUTE ILLNESS 12/08/2015 Patient Education: Patient Medication Summary Completed 12/08/2015 Appointment: María Elena Appiah WPtel: [address] [place] [address] ACUTE ILLNESS 11/18/2015 Patient Education: Patient Medication Summary Completed 10/11/2015 Appointment: María Elena Appiah WPtel: [address] [place], [place] [phone] [place] INJECTION 10/07/2015 Patient Education: Patient Medication Summary Completed 10/07/2015 Visit Plan: Check renal arterial doppler s and ECHO Change amlodopine to lotrel 5/20mg q HS Will need stress test as well Check CMP, uric acid, ESR 10/06/2015 Appointment: María Elena Appiah WPtel: [address] [place], [place] [phone] ACUTE ILLNESS 10/06/2015 Patient Education: Patient Medication Summary Completed 10/06/2015 Patient Education: [facility] [employer] - Amlodipine Besylate - 18-64 - Dynamic Portal ID Completed 10/06/2015 Appointment: María Elena Appiah WPtel: [address] [place], [place] [phone] [place] FOLLOW UP 09/22/2015 Visit Plan: Cephalexin 500 mg PO bid Mery ly topical Mupirocin to lesions on left lateral neck and face Follow-up in one week. Sooner if symptoms worsen 09/14/2015 Appointment: June Flores WPtel: [address] [place] [address] ACUTE ILLNESS 09/14/2015 Patient Education: Patient Medication Summary Completed 09/14/2015 Visit Plan: Change bystolic to bedtime d osing and amlodopine to morning dosing Cryotherapy as above to AKs 09/07/2015 Appointment: María Elena Appiah WPtel: [address] [place], [place] [id number] 09/06 appointment made and confirmed ~sl FOLLOW UP 09/07/2015 Patient Education: Patient Medication Summary Completed 09/07/2015 Visit Plan: Increase bystolic back to 20 mg daily but will split and take 10mg in AM and 10mg in PM Stress Reducers 08/18/2015 Appointment: María Elena Appiah WPtel: [address] [place], [place] [phone] 08/17/15 appt confirmed cn ACUTE ILLNESS 08/18 Patient Education: Patient Medication Summary Completed 08/18/2015 Appointment: María Elena Appiah WPtel: [address] [place] [address] BP CHECK 07/07/2015 Patient Education: Patient Medication Summary Completed 07/07/2015 Appointment: María Elena Appiah WPtel: [address] [place] [address] BP CHECK 06/24/2015 Patient Education: Patient Medication Summary Completed 06/24/2015 Appointment: María Elena Appiah WPtel: [address] [place] [address] BP CHECK 06/21/2015 Patient Education: Patient Medication Summary Completed 06/21/2015 Visit Plan: Lab discussed Continue curre nt meds and lifestyle modification Recheck lab in 6mos 06/16/2015 Appointment: María Elena Appiah WPtel: [address] [place] [address] 06/15 confirmed FOLLOW UP 06/16/2015 Patient Education: Patient Medication Summary Completed 06/16/2015 Patient Education: Patient Medication Summary Completed 06/15/2015 Visit Plan: Increase cymbalta to 60mg q HS Keep clonidine at current dose Recheck 2weeks Change xanax to klonopin 06/02/2015 Appointment: María Elena Appiah WPtel: [address] [place] [address] 06/02 lm FOLLOW UP 06/02/2015 Patient Education: Patient Medication Summary Completed 06/02/2015 Appointment: María Elena Appiah WPtel: [address] [place] [address] ACUTE ILLNESS 05/24/2015 Visit Plan: Increase clonidine to 0.2mg q HS Add cymbalta 30mg q HS Recheck 2weeks Stress Reducers Check fasting lab Discussed sleep study 05/20/2015 Appointment: María Elena Appiah WPtel: [address] [place] [address] ACUTE ILLNESS 05/20/2015 Patient Education: Patient Medication Summary Completed 05/20/2015 Patient Education: [facility] [employer] - Cymbalta - 18-64 - Dynamic Portal ID Completed 05/20/2015 Appointment: María Elena Appiah WPtel: [address] [place] [address] BP CHECK 05/19/2015 Patient Education: Patient Medication Summary Completed 05/19/2015 Visit Plan: Topical Bactroban alternatin g with topical betamethasone Recheck 2weeks 05/10/2015 Appointment: María Elena Appiah WPtel: [address] [place] [address] 05/07 vm cn...05/07 appt confirmed OFFICE SURGER Y 05/10/2015 Patient Education: Patient Medication Summary Completed 05/10/2015 Referral: Patrick Chandler WPtel: [facility] Referral Initiated 05/04/2015 Visit Plan: Saline nasal flushes prn. Ty lenol/Motrin prn headache. Notify if persists/symptoms worsening. Depomedrol 40mg IM today 03/16/2015 Appointment: María Elena Appiah WPtel: [address] [place] [address] ACUTE ILLNESS 03/16/2015 Patient Education: Patient Medication Summary Completed 03/16/2015 Appointment: María Elena Appiah WPtel: [address] [place] [address] ER Follow UP 03/09/2015 Visit Plan: Cryotherapy to lesions as ab ove 10/27/2014 Appointment: María Elena Appiah WPtel: [address] [place] [address] OFFICE SURGERY 10/27/2014 Patient Education: Patient Medication Summary Completed 10/27/2014 Appointment: June Flores WPtel: [address] [place] [address] ACUTE ILLNESS 09/11/2014 Patient Education: Patient Medication Summary Completed 09/11/2014 Visit Plan: Lab discussed Lipitor 10mg d aily Coenzyme Q-10 400mg daily Vitamin D3 5000u daily Recheck lipids with LFTs in 3mos then fwup 08/31/2014 Appointment: María Elena Appiahtel: [address] [place] [address] 08/28 voicemail FOLLOW UP 08/31/2014 Patient Education: Patient Medication Summary Completed 08/31/2014 Appointment: María Elena Appiahtel: [address] [place] [address] [place] LAB 08/27/2014 Appointment: María Elena Appiah WPtel: [address] [place] [address] [place] LAB 08/27/2014 Patient Education: Patient Medication Summary Completed 08/27/2014 Appointment: María Elena Appiah WPtel: [address] [place] [address] ACUTE ILLNESS 07/23/2014 Appointment: María Elena Appiah WPtel: [address] [place] [address] ACUTE ILLNESS 07/21/2014 Patient Education: Patient Medication Summary Completed 07/21/2014 Visit Plan: Kenalog 40mg IM today Contin ue narendra and singulair Add Flonase 07/15/2014 Appointment: María Elena Appiah WPtel: [address] [place] [address] ACUTE ILLNESS 07/15/2014 Appointment: María Elena Appiah WPtel: [address] [place] [address] ACUTE ILLNESS 07/15/2014 Patient Education: Patient Medication Summary Completed 07/15/2014 Visit Plan: Will do metolazone 2.5mg prn with 6 potassium and see if causes as severe cramping Trial of of seroquel XR 50mg q PM with evening meal and let us know how works 05/18/2014 Appointment: María Elena Appiah WPtel: [address] [place], [place] [phone] 05/15 left message FOLLOW UP 05/18/2014 Patient Education: Patient Medication Summary Completed 05/18/2014 Appointment: María Elena Appiah WPtel: [address] [place], [place] [phone] LAB 05/14/2014 Patient Education: Patient Medication Summary Completed 05/14/2014 Appointment: María Elena Appiah WPtel: [address] [place], [place] [phone] INJECTION 04/22/2014 Visit Plan: Kimo and Miranda today a nd finish abx given from urgent care 04/21/2014 Appointment: María Elena Appiah WPtel: [address] [place], [place] [phone] INJECTION 04/21/2014 Patient Education: Patient Medication Summary Completed 04/21/2014 Appointment: June Flores WPtel: [address] [place] [address] ACUTE ILLNESS 03/04/2014 Patient Education: Patient Medication Summary Completed 03/04/2014 Appointment: María Elena Appiah WPtel: [address] [place] [phone] [place] INJECTION 02/27/2014 Patient Education: Patient Medication Summary Completed 02/27/2014 Visit Plan: Cryotherapy as above to all lesions Patient wants to try no meds for insomnia for a while and see how goes 01/13/2014 Appointment: María Elena Appiah WPtel: [address] [place] [phone] OFFICE SURGERY 01/13/2014 Patient Education: Patient Medication Summary Completed 01/13/2014 Visit Plan: Stop Melatonin Stop Soma Tri al of trazadone 75mg q HS See ENT for possible tubes as has had chronic ETD and serous otitis media with numerous steroids 12/24/2013 Appointment: María Elena Appiah WPtel: [address] [place] [address] ACUTE ILLNESS 12/24/2013 Patient Education: Patient Medication Summary Completed 12/24/2013 Visit Plan: Saline nasal flushes prn. Ty lenol/Motrin prn headache. Notify if persists/symptoms worsening. 11/12/2013 Appointment: María Elena pApiah WPtel: [address] [place] [address] ACUTE ILLNESS 11/12/2013 Patient Education: Patient Medication Summary Completed 11/12/2013 Appointment: María Elena Appiah WPtel: [address] [place] [address] ACUTE ILLNESS 10/21/2013 Patient Education: Patient Medication Summary Completed 10/21/2013 Visit Plan: Sleep hygiene and sleep rout ine Melatonin 10mg q HS Support stockings and observe 09/22/2013 Appointment: María Elena Appiah WPtel: [address] [place] [address] ACUTE ILLNESS 09/22/2013 Patient Education: Patient Medication Summary Completed 09/22/2013 Appointment: June Flores WPtel: [address] [place] [address] ACUTE ILLNESS 08/27/2013 Patient Education: Patient Medication Summary Completed 08/27/2013 Visit Plan: Proceed with CT scan of head /neck Proceed with occipital nerve injections Butrans 20mcg patch weekly until can get into see Dr. Mcdonough for injections 08/04/2013 Appointment: María Elena Appiah WPtel: [address] [place] [address] FOLLOW UP 08/04/2013 Patient Education: Patient Medication Summary Completed 08/04/2013 Visit Plan: OMT done Daily neck stretche s, moist heat Increase Celebrex to 200mg BID Add flexeril 07/23/2013 Appointment: María Elena Appiah WPtel: [address] [place] [address] 07/22 voicemail FOLLOW UP 07/23/2013 Patient Education: Patient Medication Summary Completed 07/23/2013 Appointment: María Elena Appiah WPtel: [address] [place] [address] ACUTE ILLNESS 06/23/2013 Patient Education: Patient Medication Summary Completed 06/23/2013 Appointment: María Elena Appiah WPtel: [address] [place] [address] ACUTE ILLNESS 05/26/2013 Patient Education: Patient Medication Summary Completed 05/26/2013 Visit Plan: Decrease clonidine to 0.1mg TID If BP remains stable consider decreasing amlodopine Prednisone for 5 days BP check in 1mo 04/16/2013 Appointment: María Elena Appiah WPtel: [address] [place] [address] 04/14 pt called and confirmed appt FOLLOW UP 04/16/2013 Patient Education: Patient Medication Summary Completed 04/16/2013 Appointment: María Elena Appiah WPtel: [address] [place] [address] ACUTE ILLNESS 03/05/2013 Patient Education: Patient Medication Summary Completed 03/05/2013 Visit Plan: Pt has MARIA ELENA on with Dr. Mcdonough Continue Butrans patch Refill Hydrocodone early tomorrow 12/23/2012 Appointment: María Elena Appiah WPtel: [address] [place] [address] FOLLOW UP 12/23/2012 Patient Education: Patient Medication Summary Completed 12/23/2012 Appointment: Lashawn Eckert WPtel: [address] [place] [address] ACUTE ILLNESS 12/16/2012 Patient Education: Patient Medication Summary Completed 12/16/2012 Visit Plan: Proceed with updated MRI of LS spine Continue gabapentin and add soma and diclofenac Will likely need to go for another epidural 12/09/2012 Appointment: María Elena Appiah WPtel: [address] [place], [place] [id number] ACUTE ILLNESS 12/09/2012 Patient Education: Patient Medication Summary Completed 12/09/2012 Visit Plan: Injection as above Finish me drol dose pack Chiropracter this afternoon 12/04/2012 Appointment: María Elena Appiah WPtel: [address] [place], [place] [id number] ACUTE ILLNESS 12/04/2012 Patient Education: Patient Medication Summary Completed 12/04/2012 Appointment: Mary Tillman WPtel: [address] [place] [address] FOLLOW UP 11/22/2012 Patient Education: Patient Medication Summary Completed 11/22/2012 Appointment: María Elena Appiah WPtel: [address] [place] [address] ACUTE ILLNESS 11/21/2012 Patient Education: Patient Medication Summary Completed 11/21/2012 Appointment: María Elena Appiah WPtel: [address] [place] [address] BP CHECK 11/07/2012 Patient Education: Patient Medication Summary Completed 11/07/2012 Visit Plan: reports extra clonidine and extra amlodipine and extra alprazalam. extra Ketolorac and promethazine last night. Bystolic 10 mg QAM and will continue all other blood pressure meds. Pt. encouraged to rest and hydrate. Discussed stroke and [place] symptoms. Pt. instructed to seek ER eval if symptoms worsen or headache persists. Pt. agrees to ER eval/EMS transport if symptoms worsen. BP re-check. 10/29/2012 Appointment: Lashawn Eckert WPtel: [address] [place], [place] [id number] ACUTE ILLNESS 10/29/2012 Patient Education: Patient Medication Summary Completed 10/29/2012 Appointment: María Elena Appiah WPtel: [address] [place], [place] [phone] ACUTE ILLNESS 10/14/2012 Patient Education: Patient Medication Summary Completed 10/14/2012 Appointment: María Elena Appiah WPtel: [address] [place], [place] [phone] UA 09/27/2012 Patient Education: Patient Medication Summary Completed 09/27/2012 Appointment: María Elena Appiah WPtel: [address] [place], [place] [phone] ACUTE ILLNESS 09/25/2012 Patient Education: Patient Medication Summary Completed 09/25/2012 Appointment: María Elena Appiah WPtel: [address] [place], [place] [phone] BP CHECK 09/24/2012 Appointment: María Elena Appiah WPtel: [address] [place], [place] [id number] ACUTE ILLNESS 08/29/2012 Patient Education: Patient Medication Summary Completed 08/29/2012 Visit Plan: Cryotherapy as above See Karlos m for right ear lesion--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 ACUTE ILLNESS 05/06/2012 Patient Education: Patient Medication Summary Completed 05/06/2012 Visit Plan: Pt wants to hold on any furt her sleep medications 04/03/2012 Appointment: María Elena Appiahtel: [address] [place], [place] [phone] FOLLOW UP 04/03/2012 Patient Education: Patient Medication Summary Completed 04/03/2012 Appointment: María Elena Appiah WPtel: [address] [place] [address] FOLLOW UP 03/19/2012 Patient Education: Patient Medication Summary Completed 03/19/2012 Appointment: María Elena Appiahtel: [address] [place] [address] BP CHECK 02/22/2012 Patient Education: Patient Medication Summary Completed 02/22/2012 Appointment: María Elena Appiahtel: [address] [place] [address] BP CHECK 02/21/2012 Patient Education: Patient Medication Summary Completed 02/21/2012 Visit Plan: Doxycycline and bactroban fo r foot Supportive care on ankles and knees Add norvasc for BP 02/20/2012 Appointment: María Elena Appiahtel: [address] [place] [address] ER Follow UP 02/20/2012 Patient Education: Patient Medication Summary Completed 02/20/2012 Appointment: María Elena Appiahtel: [address] [place] [address] ACUTE ILLNESS 01/30/2012 Patient Education: Patient Medication Summary Completed 01/30/2012 Appointment: María Elena Appiahtel: [address] [place] [address] ACUTE ILLNESS 01/24/2012 Patient Education: Patient Medication Summary Completed 01/24/2012 Visit Plan: Daily back stretches, moist heat, Biofreeze prn OMT done 01/10/2012 Appointment: María Elena Appiah WPtel: [address] [place] [address] ACUTE ILLNESS 01/10/2012 Patient Education: Patient Medication Summary Completed 01/10/2012 Appointment: María Elena Appiahtel: [address] [place] [address] [place] FOLLOW UP 12/11/2011 Patient Education: Patient Medication Summary Completed 12/11/2011 Appointment: María Elena Appiahtel: [address] [place] [address] ACUTE ILLNESS 11/09/2011 Patient Education: Patient Medication Summary Completed 11/09/2011 Appointment: María Elena Appiahtel: [address] [place] [address] ACUTE ILLNESS 09/13/2011 Patient Education: Patient Medication Summary Completed 09/13/2011 Visit Plan: Check CBC, TSH, Free T4, CMP , ESR, Vit D, B12 now Start Prednisone today 08/31/2011 Appointment: María Elena Appiahtel: [address] [place] [address] ACUTE ILLNESS 08/31/2011 Patient Education: Patient Medication Summary Completed 08/31/2011 Appointment: María Elena Appiahtel: [address] [place] [address] [place] INJECTION 07/20/2011 Patient Education: Patient Medication Summary Completed 07/20/2011 Visit Plan: Continue current meds Monite r BP Cont stretches from PT 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 07/06/2011 Appointment: María Elena Appiahtel: [address] [place] [address] FOLLOW UP 07/06/2011 Patient Education: Patient Medication Summary Completed 07/06/2011 Appointment: María Elena Appiahtel: [address] [place] [address] BP CHECK 06/06/2011 Patient Education: Patient Medication Summary Completed 06/06/2011 Visit Plan: Add Bystolic at 2.5mg QAM Ad d Robaxin 750mg 2 po q HS BP check in 2wks 05/22/2011 Appointment: María Elena Appiahtel: [address] [place] [address] FOLLOW UP 05/22/2011 Patient Education: Patient Medication Summary Completed 05/22/2011 Appointment: María Elena Appiahtel: [address] [place], [place] [phone] ER Follow UP 05/09/2011 Patient Education: Patient Medication Summary Completed 05/09/2011 Appointment: María Elena Appiah WPtel: [address] [place], [place] [phone] FOLLOW UP 02/22/2011 Visit Plan: Rx written for Hydrocodone 1 0/325mg #240 See Ortho 02/14/2011 Appointment: María Elena Appiah WPtel: [address] [place], [place] [phone] OMT 02/14/2011 Patient Education: Patient Medication Summary [...] lab work. 02/03/2011 Appointment: Lashawn Eckert WPtel: [address] [place] [address] ACUTE ILLNESS 02/03/2011 Patient Education: Patient Medication Summary Completed 02/03/2011 Visit Plan: OMT done Cont daily stretche s 01/31/2011 Appointment: María Elena Appiah WPtel: [address] [place] [address] ACUTE ILLNESS 01/31/2011 Patient Education: Patient Medication Summary Completed 01/31/2011 Visit Plan: Continue pain meds OMT done Proceed with PT No work this summer01/25/2011 Appointment: María Elena Appiah WPtel: [address] [place] [address] ACUTE ILLNESS 01/25/2011 Patient Education: Patient Medication Summary Completed 01/25/2011 Visit Plan: Start PT Long discussion abo ut getting pain meds from only us and can only have max of 4grams of tylenol per day Change to Hydrocodone 10/325mg 1- 2 po TID prn pain--#180 called to [facility] 01/18/2011 Appointment: María Elena Appiah WPtel: [address] [place] [address] FOLLOW UP 01/18/2011 Patient Education: Patient Medication Summary Completed 01/18/2011 Visit Plan: Daily back stretches, moist heat, Biofreeze prn 11/29/2010 Appointment: María Elena Appiah WPtel: [address] [place] [address] ER Follow UP 11/29/2010 Patient Education: Patient Medication Summary Completed 11/29/2010 Visit Plan: Saline nasal flushes prn. Ty lenol/Motrin prn headache. Notify if persists/symptoms worsening. Finish augmentin Add Medrol Dose Pack 10/10/2010 Appointment: María Elena Appiah WPtel: [address] [place] [address] ACUTE ILLNESS 10/10/2010 Patient Education: Patient Medication Summary Completed 10/10/2010 Visit Plan: Cryotherapy x3 to multiple l esions on both forearms 07/19/2010 Appointment: María Elena Appiah WPtel: [address] [place] [address] OFFICE SURGERY 07/19/2010 Patient Education: Patient Medication Summary Completed 07/19/2010 Appointment: María Elena Appiahtel: [address] [place] [address] BP CHECK 07/06/2010 Patient Education: Patient Medication Summary Completed 07/06/2010 Appointment: María Elena Appiah WPtel: [address] [place] [address] BP CHECK 06/30/2010 Patient Education: Patient Medication Summary Completed 06/30/2010 Appointment: María Elena Appiah WPtel: [address] [place] [address] BP CHECK 06/20/2010 Patient Education: Patient Medication Summary Completed 06/20/2010 Visit Plan: Change Diovan to Exforge 160 /5mg QD OMT done to thoracics BP check in 2wks 06/07/2010 Appointment: María Elena Appiah WPtel: [address] [place] [address] FOLLOW UP 06/07/2010 Patient Education: Patient Medication Summary Completed 06/07/2010 Appointment: María Elena Appiah WPtel: [address] [place] [address] BP CHECK 06/03/2010 Patient Education: Patient Medication Summary Completed 06/03/2010 Appointment: María Elena Appiah WPtel: [address] [place] [address] BP CHECK 06/01/2010 Patient Education: Patient Medication Summary Completed 06/01/2010 Visit Plan: Irritated skin tags to left neck x2 excised at base with scissors and base cauterized 05/30/2010 Appointment: María Elena Appiah WPtel: [address] [place] [address] OFFICE SURGERY 05/30/2010 Patient Education: Patient Medication Summary Completed 05/30/2010 Visit Plan: Saline nasal flushes prn. Ty lenol/Motrin prn headache. Notify if persists/symptoms worsening. Restart Nasonex Has allergy testing set for May 25 04/27/2010 Appointment: María Elena Appiah WPtel: [address] [place] [address] ACUTE ILLNESS 04/27/2010 Patient Education: Patient Medication Summary Completed 04/27/2010 Visit Plan: Saline nasal flushes prn. Ty lenol/Motrin prn headache. Notify if persists/symptoms worsening. Omnaris BID plus injections 04/05/2010 Appointment: María Elena Appiah WPtel: [address] [place] [address] ACUTE ILLNESS 04/05/2010 Patient Education: Patient Medication Summary Completed 04/05/2010 Visit Plan: Saline nasal flushes prn. Ty lenol/Motrin prn headache. Notify if persists/symptoms worsening. 03/09/2010 Appointment: María Elena Appiah WPtel: [address] [place] [address] ACUTE ILLNESS 03/09/2010 Patient Education: Patient Medication Summary Completed 03/09/2010 Visit Plan: Cont Clonidine as is Cont Pr emarin Fwup with surgery as scheduled 03/03/2010 Appointment: María Elena Appiah WPtel: [address] [place] [address] FOLLOW UP 03/03/2010 Patient Education: Patient Medication Summary Completed 03/03/2010 Visit Plan: Check Pelvic US now Dukee tacho Sal C vs Hysterectomy 01/17/2010 Appointment: María Elena Appiah WPtel: [address] [place] [address] ACUTE ILLNESS 01/17/2010 Patient Education: Patient Medication Summary Completed 01/17/2010 Visit Plan: Check fasting lab and schedu le Mammogram 2gm Na Diet Trial of Ambien 10mg qhs Fwup pending lab results 12/27/2009 Appointment: María Elena Appiah WPtel: [address] [place] [address] [place] ESTABLISHED PATIENT 12/27/2009 Patient Education: Patient Medication Summary Completed 12/27/2009 Referral: Canelo Overton WPtel: [address] [place] [address] [place] Referral Initiated Referral: Philipp Flores WPtel: [address] [id number] [place] Referral Appointment Requested Instructions Comment . [...] to rest and hydrate. Discussed stroke and [place] symptoms. Pt. instructed to seek ER eval [...]
--- OUTSIDE RECORDS SUMMARY | 2020-03-13 04:22 | XMS REPORT | CCD ---
Author Author Gale Appiah D.O. 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 Name Role Phone María Elena Appiah D.O., PP Unavailable CCM Unavailable Summary Purpose Interface Exchange Insurance Providers Payer name Policy type / Coverage type Covered democrat ID Effective Begin Date Effective End Date [facility] Commercial Insurance [id number] Unknown Family History Family History data not found Social History Social History Element Codes Description Effective Dates Tobacco history SNOMED CT: [id number] Never smoker 05/22/2011 Allergies, Adverse Reactions, Alerts [...] Start Date Stop Date Status Fill Instructions Farxiga 10 mg tablet RxNorm: 0921773 1 Tablet(s) Oral QAM 02/13/2020 05/13/2020 Active Farxiga 10 mg tablet RxNorm: 3196838 1 Tablet(s) Oral QAM 02/13/2020 02/12/2020 Inactive Keflex 500 mg capsule RxNorm: 055036 1 Capsule(s) Oral two time s a day 02/12/2020 02/19/2020 Active Lipitor 10 mg tablet RxNorm: 631438 TAKE ONE TABLET BY MOUTH DAILY 01/23/2020 No Stop Date Active Januvia 100 mg tablet RxNorm: 808180 TAKE ONE TABLET BY MOUTH DAILY 01/22/2020 No Stop Date Active gabapentin 300 mg capsule RxNorm: 143016 TAKE ONE CAPSU LE BY MOUTH EVERY NIGHT AT BEDTIME 01/22/2020 No Stop Date Active allopurinol 300 mg tablet RxNorm: 120045 TAKE ONE TABLET BY LOPEZ TH DAILY 01/22/2020 No Stop Date Active Klor-Con 8 mEq tablet,extended release RxNorm: 230068 T FARRUKH ONE TABLET BY MOUTH TWICE A DAY 01/22/2020 No Stop Date Active doxepin 25 mg capsule RxNorm: 5802394 TAKE ONE CAPSULE B Y MOUTH EVERY NIGHT AT BEDTIME NEEDED FOR SLEEP 01/22/2020 No Stop Date Active glimepiride 4 mg tablet RxNorm: 239011 1 Tablet(s) Oral two times a day replaces 2mg dose 01/13/2020 04/12/2020 Active lisinopril 40 mg tablet RxNorm: 257827 1 Tablet(s) Oral QD repl aces 20mg dose 01/13/2020 04/12/2020 Active hydrocodone 10 mg-acetaminophen 325 mg tablet RxNorm: 777262 1-2 Tablet(s) Oral three times a day as needed for pain 01/12/2020 No Stop Date Active cyclobenzaprine 10 mg tablet RxNorm: 092119 TAKE ONE TA BLET BY MOUTH THREE TIMES A DAY NEEDED FOR MUSCLE SPASMS 01/05/2020 No Stop Date Active triamterene 75 mg-hydrochlorothiazide 50 mg tablet RxNorm: 3 46109 TAKE ONE TABLET BY MOUTH DAILY 12/29/2019 No Stop Date Active Klor-Con 8 mEq tablet,extended release RxNorm: 005231 T FARRUKH ONE TABLET BY MOUTH TWICE A DAY 12/19/2019 01/21/2020 Inactive allopurinol 300 mg tablet RxNorm: 123661 TAKE ONE TABLET BY LOPEZ TH DAILY 12/19/2019 01/21/2020 Inactive glimepiride 2 mg tablet RxNorm: 321883 TAKE ONE TABLET BY MOUTH TWICE A DAY 12/19/2019 01/12/2020 Inactive hydrocodone 10 mg-acetaminophen 325 mg tablet RxNorm: 266750 1-2 Tablet(s) Oral three times a day as needed for pain 12/10/2019 01/11/2020 Inactive Januvia 100 mg tablet RxNorm: 471336 1 Tablet(s) Oral QD 11/20/2019 0 11/20/2019 Inactive glimepiride 2 mg tablet RxNorm: 001557 1 Tablet(s) Oral two sawyer es a day 11/20/2019 12/18/2019 Inactive cyclobenzaprine 10 mg tablet RxNorm: 061406 TAKE ONE TA BLET BY MOUTH THREE TIMES A DAY NEEDED FOR MUSCLE SPASMS 11/17/2019 01/04/2020 Inactive doxepin 25 mg capsule RxNorm: 2000686 TAKE ONE CAPSULE B Y MOUTH EVERY NIGHT AT BEDTIME NEEDED FOR SLEEP 11/16/2019 01/21/2020 Inactive Klor-Con 8 mEq tablet,extended release RxNorm: 692490 T FARRUKH ONE TABLET BY MOUTH TWICE A DAY 11/16/2019 12/18/2019 Inactive hydrocodone 10 mg-acetaminophen 325 mg tablet RxNorm: 478047 1-2 Tablet(s) Oral three times a day as needed for pain 11/10/2019 12/09/2019 Inactive cyclobenzaprine 10 mg tablet RxNorm: 662446 TAKE ONE TA BLET BY MOUTH THREE TIMES A DAY NEEDED FOR MUSCLE SPASMS 10/23/2019 11/16/2019 Inactive duloxetine 60 mg capsule,delayed release RxNorm: 374553 1 Capsu le(s) Oral QD 10/17/2019 04/13/2020 Active celecoxib 200 mg capsule RxNorm: 631025 1 Capsule(s) Or al two times a day as needed for pain 10/17/2019 01/14/2020 Inactive Singulair 10 mg tablet RxNorm: 578201 1 Tablet(s) Oral QD 10/17/2019 04/14/2020 Active metoprolol tartrate 100 mg tablet RxNorm: 824539 1 Tabl et(s) Oral two times a day 10/17/2019 04/13/2020 Active clonidine HCl 0.1 mg tablet RxNorm: 837519 1 Tablet(s) Oral fou r times a day 10/17/2019 04/13/2020 Active lisinopril 20 mg tablet RxNorm: 042316 1 Tablet(s) Oral QD 10/17/1901/12/2020 Inactive gabapentin 300 mg capsule RxNorm: 334086 1 Capsule(s) O ral every night at bedtime 10/17/2019 01/15/2020 Inactive Klor-Con 8 mEq tablet,extended release RxNorm: 987484 1 Tablet(s) Oral two times a day 10/17/2019 11/15/2019 Inactive Januvia 100 mg tablet RxNorm: 055239 1 Tablet(s) Oral QD 10/17/2019 0 01/12/2020 Inactive Lipitor 10 mg tablet RxNorm: 394492 1 Tablet(s) Oral QD 10/17/2019 Inactive Steglatro 15 mg tablet RxNorm: 3933607 1 Tablet(s) Oral QD 10/17/19 20 02/12/2020 Inactive Glyxambi 25 mg-5 mg tablet RxNorm: 5783846 1 Tablet(s) Oral QD 01/202010/16/2019 Inactive Patient will bring in copay discount card as well Glyxambi 25 mg-5 mg tablet RxNorm: 8471547 1 Tablet(s) Oral QD 01/202010/14/2019 Inactive Patient will bring in copay discount card as well Keflex 500 mg capsule RxNorm: 479541 1 Capsule(s) Oral two time s a day 10/07/2019 10/14/2019 Inactive Premarin 1.25 mg tablet RxNorm: 348105 1 Tablet(s) Oral QD 09/30/1906/25/2020 Active hydrocodone 10 mg-acetaminophen 325 mg tablet RxNorm: 376608 1-2 Tablet(s) Oral three times a day as needed for pain 09/30/2019 09/30/2019 Inactive baclofen 10 mg tablet RxNorm: 851442 TAKE ONE TABLET BY MOUTH THREE TIMES A DAY NEEDED 09/19/2019 No Stop Date Active gabapentin 300 mg capsule RxNorm: 041952 TAKE ONE CAPSU LE BY MOUTH EVERY NIGHT AT BEDTIME 09/19/2019 10/16/2019 Inactive Klor-Con 8 mEq tablet,extended release RxNorm: 179319 T FARRUKH ONE TABLET BY MOUTH TWICE A DAY 1 Tablet(s) Oral two times a day 09/19/2019 10/16/2019 Renu ctive hydrocodone 10 mg-acetaminophen 325 mg tablet RxNorm: 839492 1-2 Tablet(s) Oral three times a day as needed for pain 09/19/2019 09/29/2019 Inactive duloxetine 60 mg capsule,delayed release RxNorm: 235064 TAKE ONE CAPSULE BY MOUTH DAILY 09/11/2019 10/16/2019 Inactive Lipitor 10 mg tablet RxNorm: 568018 TAKE ONE TABLET BY MOUTH AT BEDTIME 09/11/2019 10/16/2019 Inactive lisinopril 20 mg tablet RxNorm: 045053 TAKE ONE TABLET BY MOUTH DAILY .... THIS REPLACE 10MG TABLETS 09/11/2019 10/16/2019 Inactive triamterene 75 mg-hydrochlorothiazide 50 mg tablet RxNorm: 3 80205 TAKE ONE TABLET BY MOUTH DAILY 09/11/2019 12/28/2019 Inactive allopurinol 300 mg tablet RxNorm: 188395 TAKE ONE TABLET BY LOPEZ TH DAILY 09/11/2019 12/18/2019 Inactive celecoxib 200 mg capsule RxNorm: 831721 TAKE ONE CAPSUL E BY MOUTH TWICE A DAY NEEDED FOR PAIN 09/11/2019 10/16/2019 Inactive clonidine HCl 0.1 mg tablet RxNorm: 241305 TAKE ONE TAB LET BY MOUTH FOUR TIMES A DAY 09/11/2019 10/16/2019 Inactive doxepin 25 mg capsule RxNorm: 2980111 1 Capsule(s) Oral every night at bedtime as needed for sleep 08/21/2019 11/15/2019 Inactive hydrocodone 10 mg-acetaminophen 325 mg tablet RxNorm: 548266 1-2 Tablet(s) PO TID 08/12/2019 09/29/2019 Inactive as needed for pa in - Previous quantity #240, will start dosing for #180 in April 2011 per Doctor Td. Medrol (Dustin) 4 mg tablets in a dose pack RxNorm: 830502 Tablet(s) Oral As Directed 07/21/2019 09/29/2019 Inactive Premarin 1.25 mg tablet RxNorm: 751150 1 Tablet(s) Oral QD 07/02/2009/29/2019 Inactive hydrocodone 10 mg-acetaminophen 325 mg tablet RxNorm: 148272 1-2 Tablet(s) PO TID 07/01/2019 08/11/2019 Inactive as needed for pa in - Previous quantity #240, will start dosing for #180 in April 2011 per Doctor Td. gabapentin 300 mg capsule RxNorm: 253033 1 Capsule(s) PO QHS 201809/18/2019 Inactive celecoxib 200 mg capsule RxNorm: 040216 1 Capsule(s) Or al two times a day as needed for pain 06/27/2019 06/27/2019 Inactive doxepin 25 mg capsule RxNorm: 8793282 TAKE ONE CAPSULE B Y MOUTH EVERY NIGHT AT BEDTIME NEEDED FOR SLEEP 06/24/2019 08/20/2019 Inactive Singulair 10 mg tablet RxNorm: 040012 TAKE ONE TABLET BY MOUTH JOSÉ Y 06/24/2019 10/16/2019 Inactive furosemide 40 mg tablet RxNorm: 548944 TAKE ONE TABLET BY MOUTH EVERY MORNING NEEDED FOR EDEMA . TAKE WITH POTASSIUM 06/24/2019 01/12/2020 Inactive lisinopril 20 mg tablet RxNorm: 908723 TAKE ONE TABLET BY MOUTH DAILY .... THIS REPLACE 10MG TABLETS 06/24/2019 09/10/2019 Inactive nystatin-triamcinolone 100,000 unit/g-0.1 % topical cream Rx Norm: 4343038 1 Application Topical two times a day 06/12/2019 06/19/2019 Inactive apply BID for 1 week nystatin-triamcinolone 100,000 unit/g-0.1 % topical cream Rx Norm: 7872845 1 Application Topical two times a day 06/12/2019 06/11/2019 Inactive apply BID for 1 week hydrocodone 10 mg-acetaminophen 325 mg tablet RxNorm: 616000 1-2 Tablet(s) PO QID as needed for pain MUST LAST 30 DAYS 05/28/2019 06/26/2019 Inactiv e (Response to an electronic controlled substance refill request - RxReferenceNumber: [id number]) baclofen 20 mg tablet RxNorm: 535325 1 Tablet(s) PO TID as needed for muscle spasm 05/19/2019 05/27/2019 Inactive gabapentin 300 mg capsule RxNorm: 444254 1 Capsule(s) PO QHS 201805/27/2019 Inactive lisinopril 20 mg tablet RxNorm: 152478 1 Tablet(s) PO Q D TAKE ONE TABLET BY MOUTH DAILY, REPLACES 10 MG DOSE 05/19/2019 06/23/2019 Inactive doxepin 25 mg capsule RxNorm: 4441767 TAKE ONE CAPSULE B Y MOUTH EVERY NIGHT AT BEDTIME NEEDED FOR SLEEP 05/16/2019 06/14/2019 Inactive lisinopril 20 mg tablet RxNorm: 274140 TAKE ONE TABLET BY MOUTH DAILY, REPLACES 10 MG DOSE 05/16/2019 05/18/2019 Inactive Singulair 10 mg tablet RxNorm: 366809 TAKE ONE TABLET BY MOUTH JOSÉ Y 05/16/2019 06/14/2019 Inactive gabapentin 300 mg capsule RxNorm: 803906 1 Capsule(s) PO QHS 201805/04/2019 Inactive estropipate 1.5 mg tablet RxNorm: 382119 1 Tablet(s) PO QD 05/05/2005/27/2019 Inactive estropipate 1.5 mg tablet RxNorm: 177006 1 Tablet(s) PO QD 05/05/2005/04/2019 Inactive gabapentin 300 mg capsule RxNorm: 091257 1 Capsule(s) PO QHS 201805/18/2019 Inactive hydrocodone 10 mg-acetaminophen 325 mg tablet RxNorm: 460570 1-2 Tablet(s) PO QID as needed for pain MUST LAST 30 DAYS 04/25/2019 05/24/2019 Inactiv e (Response to an electronic controlled substance refill request - RxReferenceNumber: [id number]) cyclobenzaprine 10 mg tablet RxNorm: 036431 TAKE ONE TA BLET BY MOUTH THREE TIMES A DAY NEEDED FOR MUSCLE SPASMS 04/24/2019 05/18/2019 Inactive metoprolol tartrate 100 mg tablet RxNorm: 486503 TAKE O NE TABLET BY MOUTH TWICE A DAY 04/24/2019 10/16/2019 Inactive Lyrica 75 mg capsule RxNorm: 315642 1 Capsule(s) PO QHS 03/25/2019 Inactive duloxetine 60 mg capsule,delayed release RxNorm: 786791 TAKE ONE CAPSULE BY MOUTH DAILY 03/21/2019 05/19/2019 Inactive triamterene 75 mg-hydrochlorothiazide 50 mg tablet RxNorm: 3 54901 TAKE ONE TABLET BY MOUTH DAILY 03/21/2019 05/19/2019 Inactive Klor-Con 8 mEq tablet,extended release RxNorm: 120933 T FARRUKH ONE TABLET BY MOUTH TWICE A DAY 03/21/2019 09/18/2019 Inactive Lipitor 10 mg tablet RxNorm: 961333 TAKE ONE TABLET BY MOUTH AT BEDTIME 03/21/2019 09/10/2019 Inactive clonidine HCl 0.1 mg tablet RxNorm: 339440 TAKE ONE TAB LET BY MOUTH FOUR TIMES A DAY 03/21/2019 05/19/2019 Inactive allopurinol 300 mg tablet RxNorm: 789002 TAKE ONE TABLET BY LOPEZ TH DAILY 03/21/2019 05/19/2019 Inactive hydrocodone 10 mg-acetaminophen 325 mg tablet RxNorm: 231563 1-2 Tablet(s) PO QID as needed for pain MUST LAST 30 DAYS 02/28/2019 03/29/2019 Inactiv e (Response to an electronic controlled substance refill request - RxReferenceNumber: [id number]) furosemide 40 mg tablet RxNorm: 913871 TAKE ONE TABLET BY MOUTH EVERY MORNING NEEDED FOR EDEMA . TAKE WITH POTASSIUM 02/21/2019 03/22/2019 Inactive cyclobenzaprine 10 mg tablet RxNorm: 010575 TAKE ONE TA BLET BY MOUTH THREE TIMES A DAY NEEDED FOR MUSCLE SPASMS 02/21/2019 04/21/2019 Inactive lisinopril 20 mg tablet RxNorm: 402225 TAKE ONE TABLET BY MOUTH DAILY, REPLACES 10 MG DOSE 02/21/2019 05/15/2019 Inactive doxepin 25 mg capsule RxNorm: 1328644 TAKE ONE CAPSULE B Y MOUTH EVERY NIGHT AT BEDTIME NEEDED FOR SLEEP 02/21/2019 05/15/2019 Inactive nystatin 100,000 unit/gram topical cream RxNorm: 679195 APPLY TO AFFECTED AREA(S) TWO TIMES A DAY 02/21/2019 03/22/2019 Inactive estradiol 1 mg tablet RxNorm: 064147 2 Tablet(s) PO QD replaces premarin 01/22/2019 05/04/2019 Inactive lisinopril 20 mg tablet RxNorm: 073075 TAKE ONE TABLET BY MOUTH DAILY, REPLACES 10 MG DOSE 01/20/2019 02/18/2019 Inactive cyclobenzaprine 10 mg tablet RxNorm: 911262 TAKE ONE TA BLET BY MOUTH THREE TIMES A DAY NEEDED FOR MUSCLE SPASMS 01/20/2019 02/18/2019 Inactive metoprolol tartrate 100 mg tablet RxNorm: 702596 TAKE O NE TABLET BY MOUTH TWICE A DAY 01/20/2019 02/18/2019 Inactive cyclobenzaprine 10 mg tablet RxNorm: 780689 TAKE ONE TA BLET BY MOUTH THREE TIMES A DAY NEEDED FOR MUSCLE SPASMS 12/19/2018 01/17/2019 Inactive lisinopril 20 mg tablet RxNorm: 880929 TAKE ONE TABLET BY MOUTH DAILY, REPLACES 10 MG DOSE 12/19/2018 01/17/2019 Inactive duloxetine 60 mg capsule,delayed release RxNorm: 093266 TAKE ONE CAPSULE BY MOUTH DAILY 12/19/2018 01/17/2019 Inactive Lipitor 10 mg tablet RxNorm: 300562 TAKE ONE TABLET BY MOUTH AT BEDTIME 12/19/2018 01/17/2019 Inactive cyclobenzaprine 10 mg tablet RxNorm: 083039 1 Tablet(s) PO TID as needed for muscle spasm 11/19/2018 12/18/2018 Inactive Singulair 10 mg tablet RxNorm: 513897 1 Tablet(s) PO QD 11/19/2018 Inactive lisinopril 20 mg tablet RxNorm: 275081 TAKE ONE TABLET BY MOUTH DAILY, REPLACES 10 MG DOSE 11/15/2018 12/18/2018 Inactive hydrocodone 10 mg-acetaminophen 325 mg tablet RxNorm: 822853 1-2 Tablet(s) PO QID as needed for pain MUST LAST 30 DAYS 11/13/2018 12/12/2018 Inactiv e (Response to an electronic controlled substance refill request - RxReferenceNumber: [id number]) nystatin 100,000 unit/gram topical cream RxNorm: 808360 APPLY TO AFFECTED AREA(S) TWO TIMES A DAY 10/23/2018 11/06/2018 Inactive lisinopril 20 mg tablet RxNorm: 758162 1 Tablet(s) PO QD replac es 10mg dose 10/18/2018 11/14/2018 Inactive hydrocodone 10 mg-acetaminophen 325 mg tablet RxNorm: 809740 1-2 Tablet(s) QID as needed for pain MUST LAST 30 DAYS 10/08/2018 11/06/2018 Inactive (Response to an electronic controlled substance refill request - RxReferenceNumber: [id number]) lisinopril 10 mg tablet RxNorm: 711400 1 Tablet(s) PO QD 10/03/2018 0 01/21/2019 Inactive Celebrex 200 mg capsule RxNorm: 224667 TAKE ONE CAPSULE BY MOUT H TWICE A DAY 09/30/2018 05/04/2019 Inactive cyclobenzaprine 10 mg tablet RxNorm: 846234 TAKE ONE TA BLET BY MOUTH THREE TIMES A DAY NEEDED FOR MUSCLE SPASMS 09/30/2018 11/18/2018 Inactive doxepin 25 mg capsule RxNorm: 0915147 TAKE ONE CAPSULE B Y MOUTH EVERY NIGHT AT BEDTIME NEEDED 09/05/2018 10/16/2018 Inactive omeprazole 40 mg capsule,delayed release RxNorm: 279307 TAKE ONE CAPSULE BY MOUTH DAILY 09/05/2018 01/21/2019 Inactive furosemide 40 mg tablet RxNorm: 357781 TAKE ONE TABLET BY MOUTH EVERY MORNING NEEDED FOR EDEMA . TAKE WITH POTASSIUM 09/05/2018 11/03/2018 Inactive phentermine 37.5 mg tablet RxNorm: 055203 1 Tablet(s) PO QAM 201701/21/2019 Inactive doxepin 25 mg capsule RxNorm: 7093533 1 Capsule(s) PO QH S as needed for sleep TAKE ONE CAPSULE BY MOUTH EVERY NIGHT AT BEDTIME NEEDED 08/27/2018 09/04/2018 Inactive Keflex 500 mg capsule RxNorm: 738369 1 Capsule(s) PO TID 08/09/2018 1 10/19/2017 Inactive Diflucan 100 mg tablet RxNorm: 938111 1 Tablet(s) PO QD 08/09/2018 Inactive Premarin 1.25 mg tablet RxNorm: 833036 2 Tablet(s) PO QD 08/09/2018 0 05/04/2019 Inactive Zofran ODT 4 mg disintegrating tablet RxNorm: 845896 1 Tablet(s) PO Q4H as needed for nausea 08/09/2018 01/21/2019 Inactive metoprolol tartrate 100 mg tablet RxNorm: 009402 TAKE O NE TABLET BY MOUTH TWICE A DAY 2018 10/04/2018 Inactive doxepin 25 mg capsule RxNorm: 0583801 TAKE ONE CAPSULE B Y MOUTH EVERY NIGHT AT BEDTIME NEEDED 2018 08/26/2018 Inactive cyclobenzaprine 10 mg tablet RxNorm: 985131 TAKE ONE TA BLET BY MOUTH THREE TIMES A DAY NEEDED FOR MUSCLE SPASMS 2018 09/29/2018 Inactive hydrocodone 10 mg-acetaminophen 325 mg tablet RxNorm: 988741 1-2 Tablet(s) QID as needed for pain MUST LAST 30 DAYS 07/29/2018 08/27/2018 Inactive (Response to an electronic controlled substance refill request - RxReferenceNumber: [id number]) nystatin 100,000 unit/gram topical powder RxNorm: 657519 Applic ation TOP BID 07/22/2018 08/04/2018 Inactive doxepin 25 mg capsule RxNorm: 1062003 1 Capsule(s) PO QHS as needed 07/22/2018 08/05/2018 Inactive triamterene 75 mg-hydrochlorothiazide 50 mg tablet RxNorm: 3 27899 TAKE ONE TABLET BY MOUTH DAILY 07/05/2018 10/02/2018 Inactive duloxetine 60 mg capsule,delayed release RxNorm: 510215 TAKE ONE CAPSULE BY MOUTH DAILY 07/05/2018 09/02/2018 Inactive Klor-Con 8 mEq tablet,extended release RxNorm: 636937 T FARRUKH ONE TABLET BY MOUTH TWICE A DAY 07/05/2018 10/02/2018 Inactive Lipitor 10 mg tablet RxNorm: 986621 TAKE ONE TABLET BY MOUTH AT BEDTIME 07/05/2018 09/02/2018 Inactive allopurinol 300 mg tablet RxNorm: 977694 TAKE ONE TABLET BY LOPEZ TH DAILY 07/05/2018 10/02/2018 Inactive clonidine HCl 0.1 mg tablet RxNorm: 365687 TAKE ONE TAB LET BY MOUTH FOUR TIMES A DAY 07/05/2018 10/02/2018 Inactive hydrocodone 10 mg-acetaminophen 325 mg tablet RxNorm: 922941 1-2 Tablet(s) QID as needed for pain MUST LAST 30 DAYS 06/28/2018 07/27/2018 Inactive (Response to an electronic controlled substance refill request - RxReferenceNumber: [id number]) MediHoney (calcium alginate-honey) 4" X 5" bandage RxNorm: 1 Application TOP QD 06/17/2018 06/26/2018 Inactive honey-hydrocolloid dressing 4" X 5" RxNorm: 1 Application TOP QD 06/17/2018 07/16/2018 Inactive furosemide 40 mg tablet RxNorm: 327443 TAKE ONE TABLET BY MOUTH EVERY MORNING NEEDED FOR EDEMA . TAKE WITH POTASSIUM 06/10/2018 07/09/2018 Inactive This is a refill request. hydrocodone 10 mg-acetaminophen 325 mg tablet RxNorm: 364473 1-2 Tablet(s) QID as needed for pain MUST LAST 30 DAYS 05/30/2018 06/27/2018 Inactive (Response to an electronic controlled substance refill request - RxReferenceNumber: [id number]) acyclovir 800 mg tablet RxNorm: 547439 1 Tablet(s) PO 5x day 201705/22/2018 Inactive Premarin 1.25 mg tablet RxNorm: 874359 1-2 Tablet(s) PO QD 05/15/20 18 07/13/2018 Inactive cyclobenzaprine 10 mg tablet RxNorm: 446904 1 Tablet(s) PO TID as needed for muscle spasm 05/09/2018 05/08/2018 Inactive Medrol (Dustin) 4 mg tablets in a dose pack RxNorm: 114560 Tablet(s) PO As Directed 05/02/2018 06/16/2018 Inactive hydrocodone 10 mg-acetaminophen 325 mg tablet RxNorm: 136280 1-2 Tablet(s) QID as needed for pain MUST LAST 30 DAYS 04/30/2018 05/29/2018 Inactive (Response to an electronic controlled substance refill request - RxReferenceNumber: [id number]) duloxetine 60 mg capsule,delayed release RxNorm: 332271 TAKE ONE CAPSULE BY MOUTH DAILY 04/16/2018 05/15/2018 Inactive Celebrex 200 mg capsule RxNorm: 096839 TAKE ONE CAPSULE BY MOUT H TWICE A DAY 04/16/2018 06/14/2018 Inactive Singulair 10 mg tablet RxNorm: 274816 TAKE ONE TABLET BY MOUTH JOSÉ Y 04/16/2018 11/19/2018 Inactive Lipitor 10 mg tablet RxNorm: 142509 TAKE ONE TABLET BY MOUTH AT BEDTIME 04/16/2018 05/15/2018 Inactive hydrocodone 10 mg-acetaminophen 325 mg tablet RxNorm: 314548 1-2 Tablet(s) QID as needed for pain MUST LAST 30 DAYS 03/29/2018 04/27/2018 Inactive (Response to an electronic controlled substance refill request - RxReferenceNumber: [id number]) cyclobenzaprine 10 mg tablet RxNorm: 435972 1 Tablet(s) PO TID as needed for muscle spasm 03/18/2018 05/09/2018 Inactive omeprazole 40 mg capsule,delayed release RxNorm: 673532 1 Capsu le(s) PO QD 02/26/2018 08/24/2018 Inactive hydrocodone 10 mg-acetaminophen 325 mg tablet RxNorm: 357505 1-2 Tablet(s) QID as needed for pain MUST LAST 30 DAYS 02/26/2018 03/27/2018 Inactive (Response to an electronic controlled substance refill request - RxReferenceNumber: [id number]) metoprolol tartrate 100 mg tablet RxNorm: 861105 1 Tablet(s) PO BID 02/18/2018 08/05/2018 Inactive Lyrica 75 mg capsule RxNorm: 633897 1 Capsule(s) PO QHS 01/30/2018 Inactive phentermine 37.5 mg tablet RxNorm: 072343 1 Tablet(s) PO QAM 201706/16/2018 Inactive hydrocodone 10 mg-acetaminophen 325 mg tablet RxNorm: 108184 1-2 Tablet(s) QID as needed for pain MUST LAST 30 DAYS 01/29/2018 02/25/2018 Inactive (Response to an electronic controlled substance refill request - RxReferenceNumber: [id number]) Klor-Con 8 mEq tablet,extended release RxNorm: 496418 1 Tablet( s) PO BID 01/14/2018 07/04/2018 Inactive allopurinol 300 mg tablet RxNorm: 580931 1 Tablet(s) PO QD 01/15/2007/04/2018 Inactive Lipitor 10 mg tablet RxNorm: 786562 1 Tablet(s) PO QHS 01/14/201812/2017 Inactive triamterene 75 mg-hydrochlorothiazide 50 mg tablet RxNorm: 3 10872 1 Tablet(s) PO QD 01/14/2018 07/04/2018 Inactive hydrocodone 10 mg-acetaminophen 325 mg tablet RxNorm: 953465 1-2 Tablet(s) QID as needed for pain MUST LAST 30 DAYS 12/27/2017 01/25/2018 Inactive (Response to an electronic controlled substance refill request - RxReferenceNumber: [id number]) Onglyza 5 mg tablet RxNorm: 099308 1 Tablet(s) PO QD 12/18/201701/29 Inactive metformin 500 mg tablet RxNorm: 367910 1 Tablet(s) PO BID 12/11/2017 12/10/2017 Inactive metformin 500 mg tablet RxNorm: 553814 1 Tablet(s) PO BID 12/11/2017 12/17/2017 Inactive furosemide 40 mg tablet RxNorm: 553280 1 Tablet(s) PO Q AM prn edema--take with potassium 12/11/2017 06/08/2018 Inactive cyclobenzaprine 10 mg tablet RxNorm: 506096 1 Tablet(s) PO TID as needed for muscle spasm 12/11/2017 03/18/2018 Inactive hydrocodone 10 mg-acetaminophen 325 mg tablet RxNorm: 012349 1-2 Tablet(s) QID as needed for pain MUST LAST 30 DAYS 10/23/2017 11/21/2017 Inactive (Response to an electronic controlled substance refill request - RxReferenceNumber: [id number]) Lipitor 10 mg tablet RxNorm: 631960 1 Tablet(s) PO QHS 10/16/201703/2018 Inactive cyclobenzaprine 10 mg tablet RxNorm: 333877 1 Tablet(s) PO TID as needed for muscle spasm 10/09/2017 12/10/2017 Inactive hydroxyzine HCl 25 mg tablet RxNorm: 173930 1 Tablet(s) PO BID as needed for anxiety 09/20/2017 01/29/2018 Inactive Effexor XR 75 mg capsule,extended release RxNorm: 995183 1 Caps ule(s) PO QD 09/20/2017 01/29/2018 Inactive metoprolol tartrate 100 mg tablet RxNorm: 305496 1 Tablet(s) PO BID 08/20/2017 02/18/2018 Inactive baclofen 20 mg tablet RxNorm: 964337 1 Tablet(s) PO TID as needed for muscle spasm 08/20/2017 01/21/2019 Inactive clonidine HCl 0.1 mg tablet RxNorm: 878461 1 Tablet(s) PO QID 08/2005/16/2018 Inactive Seroquel 25 mg tablet RxNorm: 497494 1 Tablet(s) PO QHS 08/17/2017 Inactive Seroquel 25 mg tablet RxNorm: 025814 1 Tablet(s) PO QHS 08/17/2017 Inactive Diflucan 100 mg tablet RxNorm: 193519 TAKE ONE TABLET BY MOUTH JOSÉ Y 07/25/2017 08/07/2017 Inactive hydrocodone 10 mg-acetaminophen 325 mg tablet RxNorm: 991342 1-2 Tablet(s) QID as needed for pain MUST LAST 30 DAYS 07/19/2017 08/17/2017 Inactive (Response to an electronic controlled substance refill request - RxReferenceNumber: [id number]) clindamycin 300 mg capsule RxNorm: 913825 1 Capsule(s) PO TID 07/1907/28/2017 Inactive clotrimazole-betamethasone 1 %-0.05 % topical cream RxNorm: 544160 Application TOP BID to elbow rash 07/19/2017 06/16/2018 Inactive Singulair 10 mg tablet RxNorm: 978321 Tablet(s) TAKE ONE TABLET BY MOUTH DAILY 07/18/2017 04/13/2018 Inactive triamterene 75 mg-hydrochlorothiazide 50 mg tablet RxNorm: 3 16306 1 Tablet(s) PO QD 07/18/2017 01/14/2018 Inactive Celebrex 200 mg capsule RxNorm: 511687 Capsule(s) TAKE ONE CAPSULE BY MOUTH TWICE A DAY 07/18/2017 10/15/2017 Inactive hydrocodone 10 mg-acetaminophen 325 mg tablet RxNorm: 915332 1-2 Tablet(s) QID as needed for pain MUST LAST 30 DAYS 06/19/2017 07/18/2017 Inactive (Response to an electronic controlled substance refill request - RxReferenceNumber: [id number]) hydrocodone 10 mg-acetaminophen 325 mg tablet RxNorm: 055266 1-2 Tablet(s) QID as needed for pain MUST LAST 30 DAYS 06/19/2017 06/18/2017 Inactive (Response to an electronic controlled substance refill request - RxReferenceNumber: [id number]) baclofen 20 mg tablet RxNorm: 432058 1 Tablet(s) PO TID as needed for muscle spasm 06/18/2017 08/20/2017 Inactive Medrol (Dustin) 4 mg tablets in a dose pack RxNorm: 059295 Tablet(s) PO As Directed 06/05/2017 07/18/2017 Inactive omeprazole 40 mg capsule,delayed release RxNorm: 211297 1 Capsu le(s) PO QD 04/20/2017 10/16/2017 Inactive Premarin 1.25 mg tablet RxNorm: 339231 1-2 Tablet(s) PO QD 04/11/20 17 05/15/2018 Inactive duloxetine 60 mg capsule,delayed release RxNorm: 265020 1 Capsu le(s) PO QD 04/11/2017 09/19/2017 Inactive furosemide 40 mg tablet RxNorm: 489355 1 Tablet(s) PO Q AM prn edema--take with potassium 04/11/2017 12/11/2017 Inactive Klor-Con 8 mEq tablet,extended release RxNorm: 488081 1 Tablet( s) PO BID 04/11/2017 01/14/2018 Inactive Lipitor 10 mg tablet RxNorm: 117473 1 Tablet(s) PO QHS 04/11/201702/2018 Inactive amlodipine 5 mg-benazepril 20 mg capsule RxNorm: 994954 1 Capsu le(s) PO QD 04/11/2017 01/29/2018 Inactive allopurinol 300 mg tablet RxNorm: 534056 1 Tablet(s) PO QD 04/11/20 17 01/14/2018 Inactive clonidine HCl 0.1 mg tablet RxNorm: 467808 1 Tablet(s) PO QID 04/0508/19/2017 Inactive baclofen 20 mg tablet RxNorm: 309423 1 Tablet(s) PO TID as needed for muscle spasm 04/02/2017 06/18/2017 Inactive Premarin 1.25 mg tablet RxNorm: 870474 1-2 Tablet(s) PO QD 03/20/20 17 04/10/2017 Inactive hydrocodone 10 mg-acetaminophen 325 mg tablet RxNorm: 541748 1-2 Tablet(s) QID as needed for pain MUST LAST 30 DAYS 03/14/2017 01/21/2019 Inactive (Response to an electronic controlled substance refill request - RxReferenceNumber: [id number]) metoprolol tartrate 100 mg tablet RxNorm: 729492 1 Tablet(s) PO BID 02/12/2017 08/20/2017 Inactive hydrocodone 10 mg-acetaminophen 325 mg tablet RxNorm: 982095 1-2 Tablet(s) QID as needed for pain MUST LAST 30 DAYS 02/08/2017 03/09/2017 Inactive (Response to an electronic controlled substance refill request - RxReferenceNumber: [id number]) metoprolol tartrate 100 mg tablet RxNorm: 183373 TAKE O NE TABLET BY MOUTH TWICE A DAY 01/11/2017 02/12/2017 Inactive metoprolol tartrate 100 mg tablet RxNorm: 799163 1 Tablet(s) PO BID 12/18/2016 12/17/2016 Inactive metoprolol tartrate 100 mg tablet RxNorm: 661244 1 Tablet(s) PO BID 12/18/2016 01/10/2017 Inactive furosemide 40 mg tablet RxNorm: 451592 1 Tablet(s) PO Q AM prn edema--take with potassium 12/13/2016 02/10/2017 Inactive amitriptyline 100 mg tablet RxNorm: 271315 1 Tablet(s) PO QHS 11/2812/12/2016 Inactive baclofen 20 mg tablet RxNorm: 730544 1 Tablet(s) PO TID as needed for muscle spasm 11/14/2016 04/01/2017 Inactive triamterene 75 mg-hydrochlorothiazide 50 mg tablet RxNorm: 3 80491 1 Tablet(s) PO QD 11/14/2016 11/13/2016 Inactive metolazone 2.5 mg tablet RxNorm: 577841 TAKE ONE TABLET BY MOUTH DAILY NEEDED FOR EDEMA 11/14/2016 12/12/2016 Inactive triamterene 75 mg-hydrochlorothiazide 50 mg tablet RxNorm: 3 42408 1 Tablet(s) PO QD 11/14/2016 07/18/2017 Inactive amitriptyline 50 mg tablet RxNorm: 409267 TAKE ONE TABL ET BY MOUTH AT BEDTIME NEEDED FOR SLEEP 11/14/2016 11/27/2016 Inactive Cymbalta 60 mg capsule,delayed release RxNorm: 067407 1 Capsule (s) PO QHS 11/14/2016 12/12/2016 Inactive clonidine HCl 0.1 mg tablet RxNorm: 599941 1 Tablet(s) PO QID 11/1304/04/2017 Inactive amitriptyline 50 mg tablet RxNorm: 917187 1 Tablet(s) P O QHS as needed for sleep 11/01/2016 11/27/2016 Inactive duloxetine 60 mg capsule,delayed release RxNorm: 163837 TAKE ONE CAPSULE BY MOUTH DAILY 10/20/2016 01/17/2017 Inactive allopurinol 300 mg tablet RxNorm: 354317 TAKE ONE TABLET BY LOPEZ TH DAILY 10/20/2016 01/16/2017 Inactive Lyrica 75 mg capsule RxNorm: 296922 TAKE ONE CAPSULE BY MOUTH EVERY NIGHT AT BEDTIME 10/20/2016 12/10/2016 Inactive Klor-Con 8 mEq tablet,extended release RxNorm: 371405 T FARRUKH ONE TABLET BY MOUTH TWICE A DAY 10/20/2016 01/17/2017 Inactive Celebrex 200 mg capsule RxNorm: 715479 TAKE ONE CAPSULE BY MOUT H TWICE A DAY 10/20/2016 07/18/2017 Inactive Bystolic 10 mg tablet RxNorm: 745070 TAKE ONE TABLET BY MOUTH EVERY NIGHT AT BEDTIME 10/20/2016 12/17/2016 Inactive amlodipine 5 mg-benazepril 20 mg capsule RxNorm: 866272 TAKE ONE CAPSULE BY MOUTH EVERY NIGHT AT BEDTIME -- TO REPLACE AMLODOPINE 10/20/20162016 Inactive Lipitor 10 mg tablet RxNorm: 451589 TAKE ONE TABLET BY MOUTH EVERY NIGHT AT BEDTIME 10/20/2016 01/17/2017 Inactive alprazolam 0.5 mg tablet RxNorm: 018524 3 Tablet(s) PO QHS as needed for sleep/anxiety 09/20/2016 10/31/2016 Inactive Tamiflu 75 mg capsule RxNorm: 075784 1 Capsule(s) PO QD 09/19/2016 Inactive Lyrica 75 mg capsule RxNorm: 752031 1 Capsule(s) PO QHS 09/19/2016 Inactive prednisone 20 mg tablet RxNorm: 821427 1 Tablet(s) PO QD 08/10/2016 1 10/17/2015 Inactive doxycycline hyclate 100 mg capsule RxNorm: 9082232 1 Capsule(s) PO BID 08/10/2016 08/19/2016 Inactive Medrol (Dustin) 4 mg tablets in a dose pack RxNorm: 491230 Tablet(s) PO As Directed 07/31/2016 08/22/2016 Inactive Singulair 10 mg tablet RxNorm: 740820 TAKE ONE TABLET BY MOUTH JOSÉ Y 07/27/2016 07/18/2017 Inactive hydrocodone 10 mg-acetaminophen 325 mg tablet RxNorm: 593899 1-2 Tablet(s) QID as needed for pain MUST LAST 30 DAYS 07/26/2016 08/24/2016 Inactive (Response to an electronic controlled substance refill request - RxReferenceNumber: [id number]) alprazolam 0.5 mg tablet RxNorm: 118344 3 Tablet(s) PO QHS as needed for anxiety or sleep 07/26/2016 09/20/2016 Inactive clindamycin 300 mg capsule RxNorm: 981271 1 Capsule(s) PO TID 07/2007/29/2016 Inactive Diflucan 100 mg tablet RxNorm: 328262 1 Tablet(s) PO QD 07/20/2016 Inactive Levaquin 500 mg tablet RxNorm: 873261 1 Tablet(s) PO QD 07/17/2016 Inactive Levaquin 500 mg tablet RxNorm: 025540 1 Tablet(s) PO QD 07/10/2016 Inactive Levaquin 500 mg tablet RxNorm: 220909 1 Tablet(s) PO QD 07/10/2016 Inactive mupirocin 2 % topical ointment RxNorm: 683730 TOP Apply topically to affected areas twice daily 07/06/2016 09/18/2016 Inactive Singulair 10 mg tablet RxNorm: 771570 TAKE ONE TABLET BY MOUTH JOSÉ Y 06/21/2016 01/21/2019 Inactive alprazolam 0.5 mg tablet RxNorm: 997649 TAKE THREE TABL ETS BY MOUTH AT BEDTIME NEEDED FOR SLEEP OR STRESS 05/22/2016 06/20/2016 Inactive triamterene 75 mg-hydrochlorothiazide 50 mg tablet RxNorm: 3 26674 1 Tablet(s) PO QD 04/26/2016 01/12/2020 Inactive Premarin 1.25 mg tablet RxNorm: 284354 1-2 Tablet(s) PO QD 04/26/20 16 03/20/2017 Inactive Klor-Con 8 mEq tablet,extended release RxNorm: 220456 1 Tablet( s) PO BID 04/26/2016 10/19/2016 Inactive Celebrex 200 mg capsule RxNorm: 723963 1 Capsule(s) PO BID TAKE ONE CAPSULE BY MOUTH EVERY DAY 04/26/2016 10/19/2016 Inactive Lipitor 10 mg tablet RxNorm: 575062 1 Tablet(s) PO QHS 04/26/201605/2017 Inactive allopurinol 300 mg tablet RxNorm: 557917 1 Tablet(s) PO QD TAKE ONE TABLET BY MOUTH EVERY DAY 04/26/2016 10/19/2016 Inactive amlodipine 5 mg-benazepril 20 mg capsule RxNorm: 859020 1 Capsule(s) PO QHS replaces amlodopine 04/26/2016 10/19/2016 Inactive duloxetine 60 mg capsule,delayed release RxNorm: 875872 1 Capsu le(s) PO QD 04/26/2016 10/19/2016 Inactive Bystolic 10 mg tablet RxNorm: 207556 1 Tablet(s) PO QHS 04/26/2016 Inactive Singulair 10 mg tablet RxNorm: 631350 1 Tablet(s) PO QD TAKE ONE TABLET BY MOUTH DAILY 04/26/2016 06/20/2016 Inactive clonidine HCl 0.1 mg tablet RxNorm: 388632 1 Tablet(s) PO QID 04/2610/22/2016 Inactive hydrocodone 10 mg-acetaminophen 325 mg tablet RxNorm: 362849 1-2 Tablet(s) QID as needed for pain TAKE ONE TO TWO TABLETS BY MOUTH FOUR TIMES A DAY . MUST LAST 30 DAYS 03/31/2016 04/29/2016 Inactive (Response to an electronic controlled substance refill request - RxReferenceNumber: [id number]) Klor-Con 8 mEq tablet,extended release RxNorm: 833130 T FARRUKH ONE TABLET BY MOUTH TWICE A DAY 03/24/2016 09/29/2019 Inactive prednisone 20 mg tablet RxNorm: 177486 1 Tablet(s) PO QD 03/09/2016 0 03/08/2016 Inactive prednisone 20 mg tablet RxNorm: 160467 1 Tablet(s) PO QD 03/09/2016 0 03/13/2016 Inactive alprazolam 0.5 mg tablet RxNorm: 590178 3 Tablet(s) PO QHS as needed for sleep/stress 03/02/2016 01/21/2019 Inactive mupirocin 2 % topical ointment RxNorm: 654661 TOP twice daily to affected areas of face and neck 02/21/2016 04/25/2016 Inactive clonidine HCl 0.1 mg tablet RxNorm: 849064 TAKE ONE TAB LET BY MOUTH FOUR TIMES A DAY 02/15/2016 09/29/2019 Inactive clonidine HCl 0.1 mg tablet RxNorm: 402612 1 Tablet(s) PO QID 02/1404/25/2016 Inactive Premarin 1.25 mg tablet RxNorm: 602326 1-2 Tablet(s) PO QD 02/15/20 16 03/15/2016 Inactive Klor-Con 8 mEq tablet,extended release RxNorm: 228337 T FARRUKH ONE TABLET BY MOUTH TWICE A DAY 02/15/2016 03/15/2016 Inactive potassium chloride ER 20 mEq tablet,extended release(part/cr yst) RxNorm: 156221 2 Tablet(s) PO BID 02/15/2016 03/15/2016 Inactive Macrobid 100 mg capsule RxNorm: 579582 1 Capsule(s) PO BID 01/24/2001/30/2016 Inactive prednisone 20 mg tablet RxNorm: 451201 Take 3tabs PO QD x 2 days, then 2 tabs PO QD x 2 days, then 1 tab PO QD x 2 days, then 1/2 tab PO QDy x 2 days 12/23/2015 04/25/2016 Inactive Klor-Con 8 mEq tablet,extended release RxNorm: 113573 T FARRUKH ONE TABLET BY MOUTH TWICE A DAY 12/20/2015 02/14/2016 Inactive alprazolam 1 mg tablet RxNorm: 998498 1 1/2 Tablet(s) PO QHS 201501/23/2016 Inactive nystatin 100,000 unit/gram topical cream RxNorm: 052500 APPLY TO AFFECTED AREA(S) TWO TIMES A DAY 11/30/2015 12/14/2015 Inactive Singulair 10 mg tablet RxNorm: 874439 TAKE ONE TABLET BY MOUTH JOSÉ Y 11/18/2015 04/25/2016 Inactive allopurinol 300 mg tablet RxNorm: 867533 1 Tablet(s) PO QD TAKE ONE TABLET BY MOUTH EVERY DAY 10/26/2015 04/22/2016 Inactive Singulair 10 mg tablet RxNorm: 423376 TAKE ONE TABLET BY MOUTH JOSÉ Y 10/26/2015 11/17/2015 Inactive duloxetine 60 mg capsule,delayed release RxNorm: 148664 1 Capsu le(s) PO QD 10/26/2015 04/22/2016 Inactive triamterene 75 mg-hydrochlorothiazide 50 mg tablet RxNorm: 3 21838 1 Tablet(s) PO QD 10/26/2015 11/14/2016 Inactive potassium chloride ER 20 mEq tablet,extended release(part/cr yst) RxNorm: 846493 2 Tablet(s) PO BID 10/26/2015 02/14/2016 Inactive Lipitor 10 mg tablet RxNorm: 211918 1 Tablet(s) PO QHS 10/26/2015 Inactive amlodipine 5 mg-benazepril 20 mg capsule RxNorm: 898211 1 Capsule(s) PO QHS replaces amlodopine 10/26/2015 04/22/2016 Inactive Bystolic 10 mg tablet RxNorm: 801043 1 Tablet(s) PO QHS 10/26/2015 Inactive amlodipine 5 mg-benazepril 20 mg capsule RxNorm: 742822 1 Capsule(s) PO QHS replaces amlodopine 10/06/2015 10/25/2015 Inactive amlodipine 5 mg tablet RxNorm: 230617 1 Tablet(s) PO QHS 09/30/2015 0 04/25/2016 Inactive metolazone 2.5 mg tablet RxNorm: 537627 TAKE ONE TABLET BY MOUTH DAILY NEEDED FOR EDEMA 09/30/2015 01/21/2019 Inactive duloxetine 60 mg capsule,delayed release RxNorm: 888297 1 Capsu le(s) PO QD 09/30/2015 10/25/2015 Inactive cephalexin 500 mg capsule RxNorm: 152887 1 Capsule(s) PO BID 201509/23/2015 Inactive mupirocin 2 % topical ointment RxNorm: 751826 TOP twice daily to affected areas of face and neck 09/14/2015 02/20/2016 Inactive baclofen 20 mg tablet RxNorm: 523183 1 Tablet(s) PO TID as needed for muscle spasm 09/01/2015 11/14/2016 Inactive clonidine HCl 0.1 mg tablet RxNorm: 463690 1 Tablet(s) PO QID 09/0102/14/2016 Inactive alprazolam 1 mg tablet RxNorm: 096451 1 1/2 Tablet(s) PO QHS 201409/09/2015 Inactive baclofen 20 mg tablet RxNorm: 024442 1 Tablet(s) PO TID as needed for muscle spasm 07/23/2015 09/01/2015 Inactive omeprazole 40 mg capsule,delayed release RxNorm: 173134 1 Capsu le(s) PO QD 07/23/2015 04/25/2016 Inactive alprazolam 1 mg tablet RxNorm: 685622 1 1/2 Tablet(s) PO QHS 201408/10/2015 Inactive Bystolic 10 mg tablet RxNorm: 789596 1 Tablet(s) PO BID 06/24/2015 Inactive allopurinol 300 mg tablet RxNorm: 357366 1 Tablet(s) PO QD TAKE ONE TABLET BY MOUTH EVERY DAY 06/23/2015 10/20/2015 Inactive alprazolam 1 mg tablet RxNorm: 162835 1 1/2 Tablet(s) PO QHS 201407/06/2015 Inactive clonidine HCl 0.1 mg tablet RxNorm: 913158 1 Tablet(s) PO QID 06/0209/01/2015 Inactive clonidine HCl 0.1 mg tablet RxNorm: 657074 1 Tablet(s) PO QID 06/0206/01/2015 Inactive Cymbalta 60 mg capsule,delayed release RxNorm: 851590 1 Capsule (s) PO QHS 06/02/2015 08/30/2015 Inactive Cymbalta 60 mg capsule,delayed release RxNorm: 044299 1 Capsule (s) PO QHS 06/02/2015 06/01/2015 Inactive clonidine HCl 0.1 mg tablet RxNorm: 141892 1 Tablet(s) PO TID 05/3106/01/2015 Inactive replaces 0.2mg dose metolazone 2.5 mg tablet RxNorm: 161847 TAKE ONE TABLET BY MOUTH DAILY NEEDED FOR EDEMA 05/21/2015 06/19/2015 Inactive Singulair 10 mg tablet RxNorm: 146230 TAKE ONE TABLET BY MOUTH JOSÉ Y 05/21/2015 10/17/2015 Inactive Cymbalta 30 mg capsule,delayed release RxNorm: 243853 1 Capsule (s) PO QHS 05/20/2015 11/14/2016 Inactive betamethasone valerate 0.1 % topical cream RxNorm: 169097 Appli cation TOP BID 05/10/2015 04/25/2016 Inactive Bactroban 2 % topical ointment RxNorm: 357906 Application TOP BID 0 05/10/2015 06/20/2015 Inactive baclofen 20 mg tablet RxNorm: 049439 1 Tablet(s) PO TID as needed 0 04/26/2015 07/23/2015 Inactive Lipitor 10 mg tablet RxNorm: 361454 1 Tablet(s) PO QHS 04/26/201508/2016 Inactive clonidine HCl 0.1 mg tablet RxNorm: 808057 1 Tablet(s) PO TID 04/2605/30/2015 Inactive replaces 0.2mg dose Klor-Con 8 mEq tablet,extended release RxNorm: 610294 1 Tablet( s) PO BID 04/26/2015 04/25/2016 Inactive metolazone 2.5 mg tablet RxNorm: 719365 1 Tablet(s) PO QD as ne eded for edema 04/26/2015 04/25/2015 Inactive triamterene 75 mg-hydrochlorothiazide 50 mg tablet RxNorm: 3 41723 1 Tablet(s) PO QD 04/26/2015 10/22/2015 Inactive Premarin 1.25 mg tablet RxNorm: 434623 1-2 Tablet(s) PO QD 04/26/20 15 10/22/2015 Inactive Bystolic 10 mg tablet RxNorm: 213055 1 Tablet(s) PO QAM TAKE ONE TABLET BY MOUTH EVERY MORNING 04/23/2015 06/23/2015 Inactive clonidine HCl 0.1 mg tablet RxNorm: 141301 1 Tablet(s) PO TID 03/2304/25/2015 Inactive replaces 0.2mg dose nystatin 100,000 unit/gram topical cream RxNorm: 812149 Applica tion TOP BID 03/23/2015 06/20/2015 Inactive baclofen 20 mg tablet RxNorm: 027405 1 Tablet(s) PO TID as needed 0 03/23/2015 04/25/2015 Inactive Premarin 1.25 mg tablet RxNorm: 612426 1-2 Tablet(s) PO QD 03/23/20 15 04/25/2015 Inactive Klor-Con 8 mEq tablet,extended release RxNorm: 037224 1 Tablet( s) PO BID 03/23/2015 04/25/2015 Inactive cefdinir 300 mg capsule RxNorm: 289328 2 Capsule(s) PO QD 03/16/2015 03/25/2015 Inactive baclofen 20 mg tablet RxNorm: 739254 1 Tablet(s) PO TID as needed 0 03/02/2015 03/22/2015 Inactive allopurinol 300 mg tablet RxNorm: 961062 1 Tablet(s) PO QD TAKE ONE TABLET BY MOUTH EVERY DAY 02/22/2015 05/22/2015 Inactive Klor-Con M20 mEq tablet,extended release RxNorm: 758749 2 Tablet(s) PO BID to use with lasix 02/22/2015 06/20/2015 Inactive clonidine HCl 0.1 mg tablet RxNorm: 665190 1 Tablet(s) PO TID 02/1903/22/2015 Inactive replaces 0.2mg dose Lipitor 10 mg tablet RxNorm: 472111 1 Tablet(s) PO QHS 01/20/201506/2015 Inactive Lipitor 10 mg tablet RxNorm: 261396 1 Tablet(s) PO QHS 01/20/2015 Inactive Singulair 10 mg tablet RxNorm: 759799 1 Tablet(s) PO QD TAKE ONE TABLET BY MOUTH EVERY DAY 11/20/2014 05/18/2015 Inactive Lipitor 10 mg tablet RxNorm: 333873 1 Tablet(s) PO QHS 11/20/201408/2015 Inactive allopurinol 300 mg tablet RxNorm: 007988 1 Tablet(s) PO QD TAKE ONE TABLET BY MOUTH EVERY DAY 11/20/2014 02/16/2015 Inactive Bystolic 10 mg tablet RxNorm: 807010 1 Tablet(s) PO QAM TAKE ONE TABLET BY MOUTH EVERY MORNING 11/20/2014 04/22/2015 Inactive Klor-Con 8 mEq tablet,extended release RxNorm: 796559 1 Tablet( s) PO BID 11/20/2014 02/17/2015 Inactive baclofen 20 mg tablet RxNorm: 140951 1 Tablet(s) PO TID as needed 0 11/20/2014 01/21/2019 Inactive baclofen 20 mg tablet RxNorm: 231925 1 Tablet(s) PO TID as needed 0 10/27/2014 11/19/2014 Inactive baclofen 20 mg tablet RxNorm: 761010 1 Tablet(s) PO TID as needed 0 10/26/2014 03/01/2015 Inactive allopurinol 300 mg tablet RxNorm: 881709 1 Tablet(s) PO QD TAKE ONE TABLET BY MOUTH EVERY DAY 10/26/2014 11/20/2014 Inactive Bystolic 10 mg tablet RxNorm: 967804 1 Tablet(s) PO QAM TAKE ONE TABLET BY MOUTH EVERY MORNING 10/26/2014 11/20/2014 Inactive clonidine HCl 0.1 mg tablet RxNorm: 961881 1 Tablet(s) PO TID 09/2805/27/2019 Inactive replaces 0.2mg dose clonidine HCl 0.1 mg tablet RxNorm: 266220 1 Tablet(s) PO TID 09/2802/18/2015 Inactive replaces 0.2mg dose baclofen 20 mg tablet RxNorm: 201944 1 Tablet(s) PO TID as needed 1 11/01/2013 08/30/2014 Inactive Lipitor 10 mg tablet RxNorm: 910706 1 Tablet(s) PO QHS 08/31/2014 Inactive baclofen 20 mg tablet RxNorm: 901913 1 Tablet(s) PO TID as needed 1 11/01/2013 10/26/2014 Inactive triamterene 75 mg-hydrochlorothiazide 50 mg tablet RxNorm: 3 60758 1 Tablet(s) PO QD 08/31/2014 02/26/2015 Inactive Klor-Con 8 mEq tablet,extended release RxNorm: 846806 1 Tablet( s) PO BID 08/31/2014 11/20/2014 Inactive baclofen 20 mg tablet RxNorm: 130257 1 Tablet(s) PO TID as needed 1 09/30/2013 10/25/2014 Inactive baclofen 20 mg tablet RxNorm: 098869 1 Tablet(s) PO TID as needed 1 09/30/2013 08/31/2014 Inactive omeprazole 40 mg capsule,delayed release RxNorm: 597923 1 Capsu le(s) PO QD 07/21/2014 07/23/2015 Inactive Flonase 50 mcg/actuation nasal spray,suspension RxNorm: 8963 23 1 [place] NASAL BID 07/15/2014 04/09/2017 Inactive hydrocodone 10 mg-acetaminophen 325 mg tablet RxNorm: 855295 1-2 Tablet(s) QID as needed for pain TAKE ONE TO TWO TABLETS BY MOUTH FOUR TIMES A DAY . MUST LAST 30 DAYS 06/30/2014 07/27/2014 Inactive (Response to an electronic controlled substance refill request - RxReferenceNumber: [id number]) baclofen 20 mg tablet RxNorm: 668322 1 Tablet(s) PO TID as needed 1 07/31/2014 Inactive Singulair 10 mg tablet RxNorm: 527009 1 Tablet(s) PO QD TAKE ONE TABLET BY MOUTH EVERY DAY 05/25/2014 11/20/2014 Inactive Bystolic 10 mg tablet RxNorm: 626134 TAKE ONE TABLET BY MOUTH E VERY MORNING 05/25/2014 09/21/2014 Inactive allopurinol 300 mg tablet RxNorm: 088024 1 Tablet(s) PO QD TAKE ONE TABLET BY MOUTH EVERY DAY 05/25/2014 10/21/2014 Inactive baclofen 20 mg tablet RxNorm: 939807 1 Tablet(s) PO TID as needed 0 05/25/2014 06/29/2014 Inactive allopurinol 300 mg tablet RxNorm: 074355 TAKE ONE TABLET BY LOPEZ TH EVERY DAY 05/25/2014 09/21/2014 Inactive Singulair 10 mg tablet RxNorm: 520043 1 Tablet(s) PO QD TAKE ONE TABLET BY MOUTH EVERY DAY 05/25/2014 05/24/2014 Inactive Bystolic 10 mg tablet RxNorm: 934357 1 Tablet(s) PO QAM TAKE ONE TABLET BY MOUTH EVERY MORNING 05/25/2014 10/21/2014 Inactive metolazone 2.5 mg tablet RxNorm: 406539 1 Tablet(s) PO QD as ne eded for edema 05/18/2014 04/25/2015 Inactive Lasix 40 mg tablet RxNorm: 115516 1 Tablet(s) PO QAM s hould take potassium supplementation with this medication 05/14/2014 05/17/2014 Inactive hydrocodone 10 mg-acetaminophen 325 mg tablet RxNorm: 622364 1-2 Tablet(s) QID as needed for pain TAKE ONE TO TWO TABLETS BY MOUTH FOUR TIMES A DAY . MUST LAST 30 DAYS 05/07/2014 06/05/2014 Inactive (Response to an electronic controlled substance refill request - RxReferenceNumber: [id number]) alprazolam 0.5 mg tablet RxNorm: 085080 TAKE ONE TABLET BY MOUTH TWICE A DAY , MUST LAST 30 DAYS 05/07/2014 05/22/2016 Inactive (Response to a n electronic controlled substance refill request - RxReferenceNumber: [id number]) diclofenac sodium 75 mg tablet,delayed release RxNorm: 46584 6 1 Tablet(s) PO BID for pain 04/24/2014 07/20/2014 Inactive Celebrex 200 mg capsule RxNorm: 702240 TAKE ONE CAPSULE BY MOUT H EVERY DAY 04/24/2014 07/20/2014 Inactive alprazolam 0.5 mg tablet RxNorm: 021635 TAKE ONE TABLET BY MOUTH TWICE A DAY , MUST LAST 30 DAYS 03/24/2014 04/22/2014 Inactive (Response to a n electronic controlled substance refill request - RxReferenceNumber: [id number]) diclofenac sodium 75 mg tablet,delayed release RxNorm: 06207 6 1 Tablet(s) PO BID for pain 03/24/2014 04/24/2014 Inactive clonidine HCl 0.1 mg tablet RxNorm: 054534 1 Tablet(s) PO TID 03/2409/28/2014 Inactive replaces 0.2mg dose Klor-Con 8 mEq tablet,extended release RxNorm: 832997 1 Tablet( s) PO BID 02/26/2014 08/31/2014 Inactive diclofenac sodium 75 mg tablet,delayed release RxNorm: 37442 6 1 Tablet(s) PO BID for pain 02/25/2014 03/24/2014 Inactive hydrocodone 10 mg-acetaminophen 325 mg tablet RxNorm: 628500 1-2 Tablet(s) QID as needed for pain TAKE ONE TO TWO TABLETS BY MOUTH FOUR TIMES A DAY . MUST LAST 30 DAYS 02/25/2014 03/26/2014 Inactive (Response to an electronic controlled substance refill request - RxReferenceNumber: [id number]) alprazolam 0.5 mg tablet RxNorm: 150501 Tablet(s) PO BI D as needed for anxiety TAKE ONE TABLET BY MOUTH TWICE A DAY , MUST LAST 30 DAYS 02/25/2014 Inactive (Response to an electronic controlled [place] bstance refill request - RxReferenceNumber: [id number]) [AttnRPh: Saving apply/adjudicate RxGRP:SG20 RxBIN:[id number] RxN: ID#:[id number]] alprazolam 0.5 mg tablet RxNorm: 757294 Tablet(s) TAKE ONE TABLET BY MOUTH TWICE A DAY , MUST LAST 30 DAYS 01/27/2014 02/24/2014 Inactive (Respo nse to an electronic controlled substance refill request - RxReferenceNumber: [id number]) [AttnRPh: Saving apply/adjudicate RxGRP:SG20 RxBIN:[id number] RxPCN: ID#:[id number]] hydrocodone 10 mg-acetaminophen 325 mg tablet RxNorm: 231231 1-2 Tablet(s) QID as needed for pain TAKE ONE TO TWO TABLETS BY MOUTH FOUR TIMES A DAY . MUST LAST 30 DAYS 01/27/2014 02/24/2014 Inactive (Response to an electronic controlled substance refill request - RxReferenceNumber: [id number]) alprazolam 0.5 mg tablet RxNorm: 250787 TAKE ONE TABLET BY MOUTH TWICE A DAY , MUST LAST 30 DAYS 01/27/2014 01/26/2014 Inactive (Response to a n electronic controlled substance refill request - RxReferenceNumber: [id number]) Premarin 1.25 mg tablet RxNorm: 842439 1-2 Tablet(s) PO QD 01/28/20 14 07/25/2014 Inactive alprazolam 0.5 mg tablet RxNorm: 400693 TAKE ONE TABLET BY MOUTH TWICE A DAY , MUST LAST 30 DAYS 01/27/2014 01/27/2014 Inactive (Response to a n electronic controlled substance refill request - RxReferenceNumber: [id number]) hydrocodone 10 mg-acetaminophen 325 mg tablet RxNorm: 572837 TAKE ONE TO TWO TABLETS BY MOUTH FOUR TIMES A DAY . MUST LAST 30 DAYS 01/27/20142013 Inactive (Response to an electronic controlled [place] bstance refill request - RxReferenceNumber: [id number]) Celebrex 200 mg capsule RxNorm: 357243 1 Capsule(s) PO QD TAKE ONE CAPSULE BY MOUTH EVERY DAY 12/29/2013 04/27/2014 Inactive hydrocodone 10 mg-acetaminophen 325 mg tablet RxNorm: 179607 1-2 Tablet(s) PO QID as needed for severe pain 12/29/2013 01/27/2014 Inactive allopurinol 300 mg tablet RxNorm: 640911 1 Tablet(s) PO QD TAKE ONE TABLET BY MOUTH EVERY DAY 12/29/2013 05/24/2014 Inactive alprazolam 0.5 mg tablet RxNorm: 872006 TAKE ONE TABLET BY MOUTH TWICE A DAY , MUST LAST 30 DAYS 12/29/2013 01/27/2014 Inactive (Response to a n electronic controlled substance refill request - RxReferenceNumber: [id number]) Celebrex 200 mg capsule RxNorm: 415729 1 Capsule(s) PO QD TAKE ONE CAPSULE BY MOUTH EVERY DAY 12/29/2013 12/29/2013 Inactive Bystolic 10 mg tablet RxNorm: 474280 1 Tablet(s) PO QAM TAKE ONE TABLET BY MOUTH EVERY MORNING 12/29/2013 05/24/2014 Inactive Bystolic 10 mg tablet RxNorm: 119442 1 Tablet(s) PO QAM TAKE ONE TABLET BY MOUTH EVERY MORNING 12/29/2013 12/29/2013 Inactive Singulair 10 mg tablet RxNorm: 849864 1 Tablet(s) PO QD TAKE ONE TABLET BY MOUTH EVERY DAY 12/29/2013 05/25/2014 Inactive hydrocodone 10 mg-acetaminophen 325 mg tablet RxNorm: 024767 TAKE ONE TO TWO TABLETS BY MOUTH FOUR TIMES A DAY . MUST LAST 30 DAYS 12/29/20132013 Inactive (Response to an electronic controlled cornell bstance refill request - RxReferenceNumber: [id number]) Trazadone 75mg Tablet RxNorm: 1 Tablet(s) PO QHS as needed 03/23/2014 Inactive Trazadone 75mg Tablet RxNorm: 1 Tablet(s) PO QHS 12/24/20132014 Inactive Soma 350 mg tablet RxNorm: 064112 Tablet(s) PO TAKE ON E TABLET BY MOUTH THREE TIMES A DAY NEEDED FOR MUSCLE SPASMS. THIS MUST LAST 30 DAYS BETWEEN REFILLS. 12/10/2013 12/22/2013 Inactive (Appended: Cont rolled substance eRx refill - RxReferenceNumber: [id number]) diclofenac sodium 75 mg tablet,delayed release RxNorm: 68958 6 1 Tablet(s) PO BID for pain 12/10/2013 02/24/2014 Inactive allopurinol 300 mg tablet RxNorm: 103734 1 Tablet(s) PO QD 11/20/19 14 12/29/2013 Inactive alprazolam 0.5 mg tablet RxNorm: 294474 2 Tablet(s) PO BID 11/13/19 14 12/29/2013 Inactive prn clonidine 0.1 mg tablet RxNorm: 996783 1 Tablet(s) PO TID 11/12/2013 02/09/2014 Inactive replaces 0.2mg dose Klor-Con M20 mEq tablet,extended release RxNorm: 663861 2 Tablet(s) PO BID to use with lasix 11/12/2013 05/10/2014 Inactive Singulair 10 mg tablet RxNorm: 939794 1 Tablet(s) PO QD 11/12/2013 Inactive hydrocodone 10 mg-acetaminophen 325 mg tablet RxNorm: 834022 1-2 Tablet(s) PO QID as needed for severe pain 11/12/2013 12/28/2013 Inactive Bystolic 10 mg tablet RxNorm: 626577 1 Tablet(s) PO QAM 11/12/2013 Inactive Soma 350 mg tablet RxNorm: 225478 Tablet(s) PO TAKE ON E TABLET BY MOUTH THREE TIMES A DAY NEEDED FOR MUSCLE SPASMS. THIS MUST LAST 30 DAYS BETWEEN REFILLS. 10/13/2013 12/10/2013 Inactive (Appended: Cont rolled substance eRx refill - RxReferenceNumber: [id number]) hydrocodone 10 mg-acetaminophen 325 mg tablet RxNorm: 216104 1-2 Tablet(s) PO QID as needed for severe pain 10/03/2013 11/11/2013 Inactive diclofenac sodium 75 mg tablet,delayed release RxNorm: 89990 8 1 Tablet(s) PO BID for pain 09/11/2013 12/10/2013 Inactive alprazolam 0.5 mg tablet RxNorm: 707656 1 Tablet(s) PO BID May refill on 04/26/13 09/01/2013 10/30/2013 Inactive prn hydrocodone 10 mg-acetaminophen 325 mg tablet RxNorm: 500731 1-2 Tablet(s) PO QID as needed for severe pain 09/01/2013 10/02/2013 Inactive triamterene 75 mg-hydrochlorothiazide 50 mg tablet RxNorm: 3 98709 1 Tablet(s) PO QD 08/04/2013 08/31/2014 Inactive cyclobenzaprine 10 mg tablet RxNorm: 830454 1 Tablet(s) PO TID prn spasm 08/04/2013 08/13/2013 Inactive clonidine 0.1 mg tablet RxNorm: 712975 1 Tablet(s) PO TID 08/04/2013 11/11/2013 Inactive replaces 0.2mg dose cyclobenzaprine 10 mg tablet RxNorm: 885472 1 Tablet(s) PO TID prn spasm 07/23/2013 08/01/2013 Inactive hydrocodone 10 mg-acetaminophen 325 mg tablet RxNorm: 498676 2 1-2 Tablet(s) PO QID as needed for severe pain 06/09/2013 08/07/2013 Inactive Singulair 10 mg tablet RxNorm: 310177 1 Tablet(s) PO QD 05/29/2013 Inactive Klor-Con 8 mEq tablet,extended release RxNorm: 866416 1 Tablet( s) PO BID 05/29/2013 02/26/2014 Inactive allopurinol 300 mg tablet RxNorm: 407593 1 Tablet(s) PO QD 05/29/20 13 11/19/2013 Inactive Bystolic 10 mg tablet RxNorm: 920116 1 Tablet(s) PO QAM take one daily in the morning. 05/29/2013 11/11/2013 Inactive scopolamine 1.5 mg 72 hr Transderm Patch RxNorm: 675144 Application TD Q72H for motion sickness 05/26/2013 07/22/2013 Inactive Soma 350 mg tablet RxNorm: 062765 1 Tablet(s) PO TID as needed for spasm 05/19/2013 10/13/2013 Inactive diclofenac sodium 75 mg tablet,delayed release RxNorm: 99558 8 1 Tablet(s) PO BID for pain 05/14/2013 07/22/2013 Inactive allopurinol 300 mg tablet RxNorm: 900009 1 Tablet(s) PO QD 04/25/20 13 05/28/2013 Inactive alprazolam 0.5 mg tablet RxNorm: 304781 1 Tablet(s) PO BID May refill on 04/26/13 04/25/2013 06/23/2013 Inactive prn Celebrex 200 mg capsule RxNorm: 160987 1 Capsule(s) PO QD 04/16/2013 12/29/2013 Inactive alprazolam 0.5 mg tablet RxNorm: 611234 1 Tablet(s) PO BID May refill on 04/26/13 04/16/2013 04/24/2013 Inactive prn Soma 350 mg tablet RxNorm: 553661 1 Tablet(s) PO TID as needed for spasm 04/16/2013 No Stop Date Active Lasix 40 mg tablet RxNorm: 468076 1 Tablet(s) PO QAM alan hould take potassium supplementation with this medication 04/16/2013 06/14/2013 Inactive clonidine 0.1 mg tablet RxNorm: 496366 1 Tablet(s) PO TID 04/16/2013 08/03/2013 Inactive replaces 0.2mg dose prednisone 20 mg tablet RxNorm: 152400 1 Tablet(s) PO BID 04/16/2013 04/20/2013 Inactive diclofenac sodium 75 mg tablet,delayed release RxNorm: 17319 8 1 Tablet(s) PO BID for pain 04/14/2013 05/13/2013 Inactive hydrocodone 10 mg-acetaminophen 325 mg tablet RxNorm: 781111 2 1-2 Tablet(s) PO QID as needed for severe pain 04/14/2013 No Stop Date Active Lasix 40 mg tablet RxNorm: 168228 1 Tablet(s) PO QAM s hould take potassium supplementation with this medication 03/31/2013 04/15/2013 Inactive Celebrex 200 mg capsule RxNorm: 758887 1 Capsule(s) PO QD 03/31/2013 04/15/2013 Inactive alprazolam 0.5 mg tablet RxNorm: 205361 1 Tablet(s) PO BID 03/28/20 13 04/15/2013 Inactive prn hydrocodone 10 mg-acetaminophen 325 mg tablet RxNorm: 187289 2 1-2 Tablet(s) PO QID as needed for severe pain 03/10/2013 No Stop Date Active metformin ER 500 mg 24 hr tablet,extended release RxNorm: 86 1018 1 Tablet(s) PO QD 03/06/2013 07/22/2013 Inactive clindamycin 300 mg capsule RxNorm: 765129 2 Capsule(s) PO TID 03/0503/14/2013 Inactive Zaroxolyn 2.5 mg tablet RxNorm: 341365 1 Tablet(s) PO QAM 03/05/2013 05/19/2015 Inactive amlodipine 10 mg tablet RxNorm: 857185 1 Tablet(s) PO QD 03/03/2013 0 05/25/2013 Inactive Norvasc 10 mg tablet RxNorm: 757118 1 Tablet(s) PO QD 02/28/201307/11 Inactive Celebrex 200 mg capsule RxNorm: 527624 1 Capsule(s) PO QD 02/28/2013 03/30/2013 Inactive diclofenac sodium 75 mg tablet,delayed release RxNorm: 21205 8 1 Tablet(s) PO BID for pain 02/14/2013 03/15/2013 Inactive Soma 350 mg tablet RxNorm: 600577 1 Tablet(s) PO TID as needed for spasm 02/14/2013 No Stop Date Active hydrocodone 10 mg-acetaminophen 325 mg tablet RxNorm: 951402 2 1-2 Tablet(s) PO QID as needed for severe pain 02/14/2013 No Stop Date Active Norvasc 10 mg tablet RxNorm: 104992 1 Tablet(s) PO QD 02/10/201302/09 Inactive Celebrex 200 mg capsule RxNorm: 617144 1 Capsule(s) PO QD 01/27/2013 01/26/2013 Inactive Premarin 1.25 mg tablet RxNorm: 272432 1-2 Tablet(s) PO QD 01/28/20 13 06/25/2013 Inactive alprazolam 0.5 mg tablet RxNorm: 891165 1 Tablet(s) PO BID 01/28/20 13 02/25/2013 Inactive prn amlodipine 5 mg tablet RxNorm: 828475 1 Tablet(s) PO QD 01/27/2013 Inactive Celebrex 200 mg capsule RxNorm: 259335 1 Capsule(s) PO QD 01/27/2013 02/27/2013 Inactive gabapentin 600 mg tablet RxNorm: 349343 1 Tablet(s) PO QHS 01/16/20 13 07/22/2013 Inactive Soma 350 mg tablet RxNorm: 556291 1 Tablet(s) PO TID as needed for spasm 01/15/2013 No Stop Date Active hydrocodone 10 mg-acetaminophen 325 mg tablet RxNorm: 376203 2 1-2 Tablet(s) PO QID as needed for severe pain 01/15/2013 No Stop Date Active Soma 350 mg tablet RxNorm: 465164 1 Tablet(s) PO TID as needed for spasm 01/13/2013 No Stop Date Active alprazolam 0.5 mg tablet RxNorm: 330694 1 Tablet(s) PO BID 12/31/19 13 01/26/2013 Inactive prn diclofenac sodium 75 mg tablet,delayed release RxNorm: 59378 8 1 Tablet(s) PO BID for pain 12/09/2012 01/07/2013 Inactive gabapentin 600 mg tablet RxNorm: 575422 1 Tablet(s) PO QHS 12/10/19 13 01/07/2013 Inactive hydrocodone 10 mg-acetaminophen 325 mg tablet RxNorm: 753316 2 1-2 Tablet(s) PO QID as needed for severe pain 12/02/2012 No Stop Date Active Levaquin 750 mg tablet RxNorm: 469449 1 Tablet(s) PO QD 11/21/2012 Inactive Singulair 10 mg tablet RxNorm: 251461 1 Tablet(s) PO QD 11/11/2012 Inactive clonidine 0.2 mg tablet RxNorm: 639364 1 Tablet(s) PO TID 11/11/2012 04/15/2013 Inactive alprazolam 0.5 mg tablet RxNorm: 049406 1 Tablet(s) PO BID 11/12/19 13 12/10/2012 Inactive prn Klor-Con 8 mEq tablet,extended release RxNorm: 952570 1 Tablet( s) PO BID 11/11/2012 03/04/2013 Inactive hydrocodone 10 mg-acetaminophen 325 mg tablet RxNorm: 368196 2 1-2 Tablet(s) PO QID as needed for severe pain 11/06/2012 No Stop Date Active alprazolam 0.5 mg tablet RxNorm: 889218 1 Tablet(s) PO BID 10/15/19 13 11/10/2012 Inactive prn hydrocodone-acetaminophen 10 mg-325 mg tablet RxNorm: 032277 2 1-2 Tablet(s) PO QID as needed for severe pain 10/10/2012 10/09/2012 Inactive allopurinol 300 mg tablet RxNorm: 483805 1 Tablet(s) PO QD 09/20/19 13 12/18/2012 Inactive alprazolam 0.5 mg tablet RxNorm: 055977 1 Tablet(s) PO BID 09/17/19 13 10/14/2012 Inactive prn hydrocodone-acetaminophen 10 mg-325 mg tablet RxNorm: 463552 2 1-2 Tablet(s) PO QID as needed for severe pain 08/22/2012 08/21/2012 Inactive Norvasc 10 mg tablet RxNorm: 296457 1 Tablet(s) PO QD 08/12/201201/10 Inactive Premarin 1.25 mg tablet RxNorm: 159459 1-2 Tablet(s) PO QD 07/30/2012/26/2012 Inactive alprazolam 0.5 mg tablet RxNorm: 007205 1 Tablet(s) PO BID 07/29/2008/27/2012 Inactive prn Klor-Con 8 mEq tablet,extended release RxNorm: 596326 1 Tablet( s) PO BID 07/29/2012 11/10/2012 Inactive hydrocodone-acetaminophen 10 mg-325 mg tablet RxNorm: 897793 2 1-2 Tablet(s) PO QID as needed for severe pain 07/29/2012 No Stop Date Active Premarin 1.25 mg tablet RxNorm: 049384 1-2 Tablet(s) PO QD 07/29/2007/29/2012 Inactive clonidine 0.2 mg tablet RxNorm: 560941 1 Tablet(s) PO TID 07/29/2012 10/28/2012 Inactive ketorolac 10 mg tablet RxNorm: 798184 1 Tablet(s) PO QID prn mitul joseph 07/18/2012 No Stop Date Active hydrocodone-acetaminophen 10 mg-325 mg tablet RxNorm: 423644 2 1-2 Tablet(s) PO QID as needed for severe pain 07/03/2012 No Stop Date Active amlodipine 5 mg tablet RxNorm: 152112 1 Tablet(s) PO QD 07/02/2012 Inactive allopurinol 300 mg tablet RxNorm: 919399 1 Tablet(s) PO QD 07/02/2009/19/2012 Inactive Celebrex 200 mg capsule RxNorm: 396820 1 Capsule(s) PO QD for j oint pain 06/26/2012 10/23/2012 Inactive diclofenac sodium 75 mg tablet,delayed release RxNorm: 58984 8 1 Tablet(s) PO BID for pain 06/19/2012 09/16/2012 Inactive hydrocodone-acetaminophen 10 mg-325 mg tablet RxNorm: 824743 2 1-2 Tablet(s) PO QID as needed for severe pain 06/10/2012 No Stop Date Active alprazolam 0.5 mg tablet RxNorm: 563384 1 Tablet(s) PO BID 06/03/20 12 07/02/2012 Inactive prn ketorolac 10 mg tablet RxNorm: 188992 1 Tablet(s) PO Q8H 05/27/2012 0 01/21/2019 Inactive as needed for headache hydrocodone-acetaminophen 10 mg-325 mg tablet RxNorm: 020439 2 1-2 Tablet(s) PO QID as needed for severe pain 05/15/2012 No Stop Date Active allopurinol 300 mg tablet RxNorm: 819674 1 Tablet(s) PO QD 05/14/20 12 06/12/2012 Inactive allopurinol 300 mg tablet RxNorm: 181474 1 Tablet(s) PO QD 05/14/20 12 05/13/2012 Inactive amlodipine 5 mg tablet RxNorm: 481954 1 Tablet(s) PO QD 05/01/2012 Inactive amlodipine 5 mg Tab RxNorm: 358569 1 Tablet(s) PO QD 05/01/201204/30 Inactive Celebrex 200 mg capsule RxNorm: 742798 1 Capsule(s) PO QD for j oint pain 05/01/2012 06/25/2012 Inactive Singulair 10 mg tablet RxNorm: 803677 1 Tablet(s) PO QD 05/01/2012 Inactive alprazolam 0.5 mg tablet RxNorm: 489086 1 Tablet(s) PO BID 05/01/20 12 05/30/2012 Inactive prn Celebrex 200 mg Cap RxNorm: 432584 1 Capsule(s) PO QD for joint radu n 05/01/2012 04/30/2012 Inactive hydrocodone-acetaminophen 10 mg-325 mg tablet RxNorm: 507655 2 1-2 Tablet(s) PO QID as needed for severe pain 04/19/2012 No Stop Date Active Lasix 40 mg tablet RxNorm: 791025 1 Tablet(s) PO QAM s hould take potassium supplementation with this medication 04/05/2012 06/03/2012 Inactive alprazolam 0.5 mg Tab RxNorm: 854053 1 Tablet(s) PO BID 04/05/2012 Inactive prn hydrocodone-acetaminophen 10 mg-325 mg Tab RxNorm: 0570998 1-2 Tablet(s) PO QID as needed for severe pain 03/25/2012 03/24/2012 Inactive clonidine 0.2 mg Tab RxNorm: 599709 1 Tablet(s) PO TID 03/08/2012 Inactive alprazolam 0.5 mg Tab RxNorm: 981867 1 Tablet(s) PO BID 03/08/2012 Inactive prn Soma 350 mg tablet RxNorm: 659474 1 Tablet(s) PO TID for spasm 02/0903/18/2012 Inactive clonidine 0.2 mg tablet RxNorm: 744565 1 Tablet(s) PO TID 03/08/2012 07/28/2012 Inactive Celebrex 200 mg Cap RxNorm: 107881 1 Capsule(s) PO QD for joint radu n 03/01/2012 04/29/2012 Inactive amlodipine 5 mg Tab RxNorm: 782314 1 Tablet(s) PO QD 02/26/201202/24 Inactive amlodipine 5 mg Tab RxNorm: 145046 1 Tablet(s) PO QD 02/26/201204/25 Inactive Bactroban 2 % Ointment RxNorm: 159966 Application TOP QID to sores 02/23/2012 No Stop Date Active amlodipine 2.5 mg tablet RxNorm: 002726 1 Tablet(s) PO QHS 02/20/20 12 02/25/2012 Inactive doxycycline hyclate 100 mg Cap RxNorm: 8006110 1 Capsule(s) PO BID 02/20/2012 02/29/2012 Inactive hydrocodone-acetaminophen 10 mg-325 mg Tab RxNorm: 1618559 1-2 T ablet(s) PO QID 02/08/2012 No Stop Date Active alprazolam 0.5 mg Tab RxNorm: 911537 1 Tablet(s) PO BID 02/08/2012 Inactive prn Singulair 10 mg Tab RxNorm: 096594 1 Tablet(s) PO QD 02/08/201204/30 Inactive Soma 350 mg Tab RxNorm: 375601 1 Tablet(s) PO TID for spasm 012 03/07/2012 Inactive Soma 350 mg Tab RxNorm: 269001 1 Tablet(s) PO TID for spasm 012 02/05/2012 Inactive diclofenac sodium 75 mg tablet,delayed release RxNorm: 26331 8 1 Tablet(s) PO BID for pain 02/01/2012 03/18/2012 Inactive Celebrex 200 mg Cap RxNorm: 799633 1 Capsule(s) PO QD for joint radu n 01/30/2012 02/28/2012 Inactive Lasix 40 mg Tab RxNorm: 984756 1 Tablet(s) PO QAM 01/24/2012 03/18/20 12 Inactive potassium chloride ER 20 mEq tablet,extended release(part/cr yst) RxNorm: 335814 2 Tablet(s) PO BID 01/24/2012 02/22/2012 Inactive alprazolam 0.5 mg Tab RxNorm: 358189 1 Tablet(s) PO BID 01/11/2012 Inactive prn hydrocodone-acetaminophen 10 mg-325 mg Tab RxNorm: 6351217 1-2 T ablet(s) PO QID 01/11/2012 No Stop Date Active Ambien 10 mg Tab RxNorm: 369045 1 Tablet(s) PO QHS 01/11/2012 012 Inactive Klor-Con 8 mEq Tab RxNorm: 143788 1 Tablet(s) PO BID 01/11/201201/22 Inactive diclofenac sodium 75 mg Tab, Delayed Release RxNorm: 196804 1 Tablet(s) PO BID for pain 01/10/2012 01/31/2012 Inactive Ambien 10 mg Tab RxNorm: 753417 1 Tablet(s) PO QHS 12/11/2011 012 Inactive alprazolam 0.5 mg Tab RxNorm: 570882 1 Tablet(s) PO BID 12/11/2011 Inactive prn hydrocodone 10 mg-acetaminophen 325 mg tablet RxNorm: 483648 1-2 Tablet(s) PO TID 11/28/2011 No Stop Date Active as needed for pa in - Previous quantity #240, will start dosing for #180 in April 2011 per Doctor Appiah. Ambien 10 mg Tab RxNorm: 492244 1 Tablet(s) PO QHS 11/09/2011 012 Inactive alprazolam 0.5 mg Tab RxNorm: 287771 1 Tablet(s) PO BID 11/09/2011 Inactive prn hydrocodone-acetaminophen 10 mg-325 mg Tab RxNorm: 0634241 1-2 T ablet(s) PO TID 11/06/2011 No Stop Date Active as needed for pain - Previous quantity #240, will start dosing for #180 in April 2011 per Doctor Td. Singulair 10 mg Tab RxNorm: 904917 1 Tablet(s) PO QD 10/13/201110/12 Inactive Singulair 10 mg Tab RxNorm: 063335 1 Tablet(s) PO QD 10/13/201102/06 Inactive hydrocodone-acetaminophen 10 mg-325 mg Tab RxNorm: 6607612 1-2 T ablet(s) PO TID 10/10/2011 10/09/2011 Inactive as needed for pain - Previous quantity #240, will start dosing for #180 in April 2011 per Doctor Td. hydrocodone-acetaminophen 10 mg-325 mg Tab RxNorm: 0956890 1-2 T ablet(s) PO TID 10/09/2011 No Stop Date Active as needed for pain - Previous quantity #240, will start dosing for #180 in April 2011 per Doctor Td. Klor-Con 8 mEq Tab RxNorm: 632337 1 Tablet(s) PO BID 10/02/201101/09 Inactive triamterene 75 mg-hydrochlorothiazide 50 mg tablet RxNorm: 3 90666 1 Tablet(s) PO QD 09/14/2011 03/06/2013 Inactive Ambien 10 mg Tab RxNorm: 458733 1 Tablet(s) PO QHS 09/14/2011 012 Inactive hydrocodone-acetaminophen 10 mg-325 mg Tab RxNorm: 8748226 1-2 T ablet(s) PO TID 09/14/2011 No Stop Date Active as needed for pain - Previous quantity #240, will start dosing for #180 in April 2011 per Doctor Td. alprazolam 0.5 mg Tab RxNorm: 288930 1 Tablet(s) PO BID 09/14/2011 Inactive prn Zithromax 500 mg Tab RxNorm: 951532 1 Tablet(s) PO QD 09/13/201109/10 Inactive prednisone 20 mg Tab RxNorm: 732749 1 Tablet(s) PO BID 08/31/2011 Inactive Ambien 10 mg Tab RxNorm: 797336 1 Tablet(s) PO QHS 08/17/2011 011 Inactive hydrocodone-acetaminophen 10 mg-325 mg Tab RxNorm: 8422510 1-2 T ablet(s) PO TID 08/17/2011 No Stop Date Active as needed for pain - Previous quantity #240, will start dosing for #180 in April 2011 per Doctor Td. clonidine 0.2 mg Tab RxNorm: 655143 1 Tablet(s) PO TID 08/17/201112/2011 Inactive Ambien 10 mg Tab RxNorm: 443423 1 Tablet(s) PO QHS 08/17/2011 019 Inactive alprazolam 0.5 mg Tab RxNorm: 762569 1 Tablet(s) PO BID 08/17/2011 Inactive prn hydrocodone-acetaminophen 10 mg-325 mg Tab RxNorm: 7051826 1-2 T ablet(s) PO TID 08/17/2011 08/16/2011 Inactive as needed for pain - Previous quantity #240, will start dosing for #180 in April 2011 per Doctor Td. Singulair 10 mg Tab RxNorm: 319357 1 Tablet(s) PO QD 08/17/201108/16 Inactive Klor-Con 8 mEq Tab RxNorm: 570520 1 Tablet(s) PO QD 08/17/20112011 Inactive alprazolam 0.5 mg Tab RxNorm: 330116 1 Tablet(s) PO BID 07/20/2011 Inactive prn Ambien 10 mg Tab RxNorm: 661677 1 Tablet(s) PO QHS 07/20/2011 012 Inactive Singulair 10 mg Tab RxNorm: 402357 1 Tablet(s) PO QD 07/20/201107/19 Inactive Premarin 1.25 mg tablet RxNorm: 513393 2 Tablet(s) PO QD 07/20/2011 0 01/21/2019 Inactive Premarin 1.25 mg tablet RxNorm: 163060 1-2 Tablet(s) PO QD 07/20/20 11 12/16/2011 Inactive Premarin 1.25 mg Tab RxNorm: 699325 1-2 Tablet(s) PO QD 07/06/2011 Inactive alprazolam 0.5 mg Tab RxNorm: 621994 1 Tablet(s) PO BID 06/22/2011 Inactive prn alprazolam 0.5 mg Tab RxNorm: 852056 1 Tablet(s) PO BID 06/22/2011 Inactive prn Premarin 1.25 mg Tab RxNorm: 084196 1 Tablet(s) PO QD m ay do 90 day fill if desired 06/22/2011 07/05/2011 Inactive hydrocodone-acetaminophen 10 mg-325 mg Tab RxNorm: 0542726 1-2 T ablet(s) PO TID 06/22/2011 No Stop Date Active as needed for pain - Previous quantity #240, will start dosing for #180 in April 2011 per Doctor Td. clonidine 0.2 mg Tab RxNorm: 534632 1 Tablet(s) PO TID 05/25/201103/2011 Inactive triamterene-hydrochlorothiazide 75 mg-50 mg Tab RxNorm: 3108 18 1 Tablet(s) PO QD 05/25/2011 09/13/2011 Inactive alprazolam 0.5 mg Tab RxNorm: 913705 1 Tablet(s) PO BID 05/25/2011 Inactive prn hydrocodone-acetaminophen 10 mg-325 mg Tab RxNorm: 5699275 1-2 T ablet(s) PO TID 05/25/2011 No Stop Date Active as needed for pain - Previous quantity #240, will start dosing for #180 in April 2011 per Doctor Td. Robaxin-750 750 mg Tab RxNorm: 731869 2 Tablet(s) PO QHS 05/22/2011 1 Inactive prn spasm hydrocodone-acetaminophen 10 mg-325 mg Tab RxNorm: 6102652 1-2 T ablet(s) PO TID 04/26/2011 No Stop Date Active as needed for pain - Previous quantity #240, will start dosing for #180 in April 2011 per Doctor Td. alprazolam 0.5 mg Tab RxNorm: 083231 1 Tablet(s) PO BID 04/25/2011 Inactive prn Klor-Con 8 mEq Tab RxNorm: 918193 1 Tablet(s) PO QD 03/30/20112010 Inactive Klor-Con 8 mEq Tab RxNorm: 092479 1 Tablet(s) PO QD 03/29/20112010 Inactive hydrocodone-acetaminophen 10 mg-325 mg Tab RxNorm: 8381607 1-2 T ablet(s) PO TID 03/20/2011 04/25/2011 Inactive as needed for pain - Previous quantity #240, will start dosing for #180 in April 2011 per Doctor Td. alprazolam 0.5 mg Tab RxNorm: 833922 1 Tablet(s) PO BID prn 011 03/30/2011 Inactive Ambien 10 mg Tab RxNorm: 589804 1 Tablet(s) PO QHS 03/01/2011 011 Inactive cyclobenzaprine 10 mg Tab RxNorm: 933616 1 Tablet(s) PO TID 011 03/18/2012 Inactive cyclobenzaprine 10 mg Tab RxNorm: 622346 1 Tablet(s) PO TID 011 01/08/2011 Inactive cyclobenzaprine 10 mg Tab RxNorm: 315223 1 Tablet(s) PO TID 011 12/20/2010 Inactive terbinafine 250 mg Tab RxNorm: 492127 1 Tablet(s) PO QD 12/12/2010 Inactive triamterene-hydrochlorothiazide 75 mg-50 mg Tab RxNorm: 3108 18 1 Tablet(s) PO QD 12/07/2010 01/12/2020 Inactive Klor-Con 8 8 mEq Tab RxNorm: 212100 1 Tablet(s) PO QD 12/07/201001/08 Inactive Premarin 1.25 mg Tab RxNorm: 971983 2 Tablet(s) PO QD 12/07/201001/08 Inactive clonidine 0.2 mg Tab RxNorm: 927097 1 Tablet(s) PO TID 12/07/2010 Inactive hydrocodone-acetaminophen 7.5 mg-650 mg Tab RxNorm: 960154 1 Ta blet(s) PO Q4H 12/05/2010 01/21/2019 Inactive hydrocodone-acetaminophen 7.5 mg-650 mg Tab RxNorm: 475611 1 Ta blet(s) PO Q4H 10/26/2010 11/14/2010 Inactive hydrocodone-acetaminophen 7.5 mg-650 mg Tab RxNorm: 026643 1 Ta blet(s) PO Q4H 10/13/2010 10/25/2010 Inactive hydrocodone-acetaminophen 7.5 mg-650 mg Tab RxNorm: 554071 1 Ta blet(s) PO Q4H 09/15/2010 09/12/2010 Inactive alprazolam 0.5 mg Tab RxNorm: 454500 1 Tablet(s) PO BID prn 011 09/12/2010 Inactive terbinafine 250 mg Tab RxNorm: 275714 1 Tablet(s) PO QD 09/05/2010 Inactive hydrocodone-acetaminophen 7.5 mg-650 mg Tab RxNorm: 849340 1 Ta blet(s) PO Q4H 08/29/2010 09/17/2010 Inactive alprazolam 0.5 mg Tab RxNorm: 078923 1 Tablet(s) PO BID prn 010 09/27/2010 Inactive alprazolam 0.5 mg Tab RxNorm: 304404 1 Tablet(s) PO BID prn 010 09/06/2010 Inactive Klor-Con 8 mEq Tab RxNorm: 713285 1 Tablet(s) PO QD 08/08/20102010 Inactive hydrocodone-acetaminophen 7.5 mg-650 mg Tab RxNorm: 285746 1 Ta blet(s) PO Q4H 08/08/2010 08/27/2010 Inactive Ambien 10 mg Tab RxNorm: 029553 1 Tablet(s) PO QHS 08/08/2010 010 Inactive clonidine 0.2 mg Tab RxNorm: 567533 1 Tablet(s) PO TID 08/08/2010 Inactive Premarin 1.25 mg Tab RxNorm: 417037 2 Tablet(s) PO QD 08/08/201009/12 Inactive Ambien 10 mg Tab RxNorm: 810314 1 Tablet(s) PO QHS 07/18/2010 Inactive alprazolam 0.5 mg Tab RxNorm: 071495 1 Tablet(s) PO BID prn 08/07/2010 Inactive hydrocodone-acetaminophen 7.5 mg-650 mg Tab RxNorm: 334479 1 Ta blet(s) PO Q4H 07/12/2010 07/31/2010 Inactive clonidine 0.2 mg Tab RxNorm: 240644 1 Tablet(s) PO TID 06/20/2010 Inactive terbinafine 250 mg Tab RxNorm: 901788 1 Tablet(s) PO QD 05/24/2010 Inactive Clonidine 0.2 mg Tab RxNorm: 854293 1 Tablet(s) PO TID 05/24/201006/2010 Inactive Ambien 10 mg Tab RxNorm: 232566 1 Tablet(s) PO QHS 05/24/2010 010 Inactive alprazolam 0.5 mg Tab RxNorm: 510970 1 Tablet(s) PO BID 05/24/2010 Inactive Klor-Con 8 mEq Tab RxNorm: 855793 1 Tablet(s) PO QD 05/24/20102009 Inactive alprazolam 0.5 mg Tab RxNorm: 425727 2 Tablet(s) PO QD prn 05/24/20 10 07/17/2010 Inactive triamterene-hydrochlorothiazide 75 mg-50 mg Tab RxNorm: 3108 18 1 Tablet(s) PO QD 05/24/2010 11/19/2010 Inactive Ambien 10 mg Tab RxNorm: 542478 1 Tablet(s) PO QHS 05/23/2010 010 Inactive Alprazolam 0.5 mg Tab RxNorm: 454370 2 Tablet(s) PO QD prn 05/23/20 10 05/23/2010 Inactive Premarin 1.25 mg Tab RxNorm: 176804 2 Tablet(s) PO QD 05/19/201007/12 Inactive Hydrocodone-Acetaminophen 7.5 mg-650 mg Tab RxNorm: 682577 1 Ta blet(s) PO Q4H 05/19/2010 03/20/2011 Inactive Prednisone 20 mg Tab RxNorm: 926073 1 Tablet(s) PO BID 05/17/2010 Inactive Prednisone 20 mg Tab RxNorm: 245753 1 Tablet(s) PO BID 05/06/201001/2010 Inactive Premarin 1.25 mg Tab RxNorm: 157424 Tablet(s) PO 2 M-W-F, and 1 Bs-Gg-Gft-Sun 05/05/2010 08/02/2010 Inactive Premarin 1.25 mg Tab RxNorm: 982176 Tablet(s) PO 2 M-W-F, and 1 Vf-Xn-Leu-Sun 05/04/2010 05/04/2010 Inactive Premarin 1.25 mg Tab RxNorm: 135009 Tablet(s) PO 2 M-W-F, and 1 Hs-Mm-Jfo-Sun 05/04/2010 05/03/2010 Inactive Prednisone 20 mg Tab RxNorm: 888210 1 Tablet(s) PO BID 04/27/2010 Inactive Alprazolam 0.5 mg Tab RxNorm: 819614 2 Tablet(s) PO QD prn 04/26/20 10 05/22/2010 Inactive Clindamycin 300 mg Cap RxNorm: 236490 2 Capsule(s) PO TID 04/05/2010 04/18/2010 Inactive Terbinafine 250 mg Tab RxNorm: 580345 1 Tablet(s) PO QD 04/04/2010 Inactive Hydrocodone-Acetaminophen 7.5 mg-650 mg Tab RxNorm: 425458 1 Ta blet(s) PO Q4H 03/30/2010 04/18/2010 Inactive Avelox 400 mg Tab RxNorm: 675722 1 Tablet(s) PO QD 03/09/2010 010 Inactive Hydrocodone-Acetaminophen 7.5 mg-650 mg Tab RxNorm: 268499 1 Ta blet(s) PO Q4H 03/08/2010 03/27/2010 Inactive Alprazolam 0.5 mg Tab RxNorm: 150814 2 Tablet(s) PO QD prn 03/08/20 10 04/25/2010 Inactive Klor-Con 8 mEq Tab RxNorm: 433009 1 Tablet(s) PO QD when takes lasi x 03/07/2010 09/29/2019 Inactive Premarin 1.25 mg Tab RxNorm: 835404 1 Tablet(s) PO QD 03/03/201003/11 Inactive Alprazolam 0.5 mg Tab RxNorm: 319286 1 Tablet(s) PO BID PRN 010 No Stop Date Active triamterene-hydrochlorothiazide 75 mg-50 mg Tab RxNorm: 3108 18 1 Tablet(s) PO QD 02/09/2010 02/03/2011 Inactive Hydrocodone-Acetaminophen 10 mg-750 mg Tab RxNorm: 078158 1 Tablet(s) PO Q4H PRN 02/09/2010 03/20/2011 Inactive Clonidine 0.2 mg Tab RxNorm: 884252 1 Tablet(s) PO TID 01/13/201009/2009 Inactive Alprazolam 0.5 mg Tab RxNorm: 333209 1 Tablet(s) PO BID PRN 010 01/12/2010 Inactive Hydrocodone-Acetaminophen 10 mg-750 mg Tab RxNorm: 292315 1 Tablet(s) PO Q4H PRN 01/13/2010 01/12/2010 Inactive ANGELIQ 1 mg-0.5 mg Tab RxNorm: 4743336 1 Tablet(s) PO QD 12/27/2009 01/23/2010 Inactive Lasix 40 mg Tab RxNorm: 220103 1 Tablet(s) PO QAM 12/14/2009 06/11/20 10 Inactive Vitamin B12 1000mcg Tablet RxNorm: 1 Tablet(s) PO QD No Start Date Active cyclobenzaprine 10 mg tablet RxNorm: 131275 1 Tablet(s) PO TID as needed DO NOT USE WITH BACLOFEN No Start Date Active Vitamin D 5,000 unit Tab RxNorm: 1 Tablet(s) PO QD No Start Date Active vitamin E (dl, acetate) 400 unit Cap RxNorm: 906206 1 Capsule(s ) PO QD No Start Date Active Benadryl 25 mg Cap RxNorm: 5644043 Capsule(s) PO PRN No Start Date Inactive amitriptyline 100 mg tablet RxNorm: 666267 1 Tablet(s) PO QHS No St art Date 11/27/2016 Inactive Zithromax Z-Dustin 250 mg tablet RxNorm: 865996 Tablet(s) PO as di rected No Start Date 07/22/2013 Inactive Klor-Con 8 mEq tablet,extended release RxNorm: 545160 1 Tablet( s) PO BID No Start Date 07/28/2012 Inactive scopolamine 1.5 mg 72 hr Transderm Patch RxNorm: 173789 Application TD Q72H for motion sickness No Start Date 05/25/2013 Inactive Klonopin 1 mg tablet RxNorm: 967583 1-2 Tablet(s) PO QHS as nee ded for sleep No Start Date 06/20/2015 Inactive Klor-Con M20 mEq tablet,extended release RxNorm: 996527 2 Tablet(s) PO BID to use with lasix No Start Date 11/11/2013 Inactive Bystolic 5 mg tablet RxNorm: 942547 1 Tablet(s) PO QD No Start Date 1 Inactive Bystolic 10 mg tablet RxNorm: 084077 1 Tablet(s) PO BID No Start Da te 07/06/2015 Inactive Premarin 1.25 mg Tab RxNorm: 812901 Tablet(s) PO 2 -W-, and 1 Hl-Wd-Wvy-Sun No Start Date 05/03/2010 Inactive baclofen 20 mg tablet RxNorm: 603353 1 Tablet(s) PO TID as needed for muscle spasm No Start Date 07/22/2015 Inactive hydrocodone-acetaminophen 7.5 mg-650 mg Tab RxNorm: 189736 1 Tablet(s) PO Q4H as needed for pain No Start Date 03/20/2011 Inactive albuterol sulfate 1.25 mg/3 mL Neb Solution RxNorm: 707960 1 Unit Dose INH Q4H 2boxes No Start Date 09/06/2015 Inactive Butrans 20 mcg/hour Transderm Patch RxNorm: 109163 1 TD WEEKLY apply to skin weekly after removing previous. No Start Date 07/22/2013 Inactive Medrol (Dustin) 4 mg tablets in a dose pack RxNorm: 725992 Tablet(s) PO As Directed No Start Date 07/30/2016 Inactive hydrocodone-acetaminophen 10 mg-325 mg Tab RxNorm: 5176378 1-2 Tablet(s) PO TID as needed for pain No Start Date 03/19/2011 Inactive Klonopin 1 mg tablet RxNorm: 558939 1 Tablet(s) PO QHS No Start Date 02/28/2016 Inactive honey topical RxNorm: topical No Start Date 06/16/2018 Inactive Clonidine 0.2 mg Tab RxNorm: 610874 1 Tablet(s) PO TID No Start Date 01/12/2010 Inactive ketorolac 10 mg tablet RxNorm: 246230 1 Tablet(s) PO Q8H No Start D ate 03/18/2012 Inactive as needed for headache Singulair 10 mg Tab RxNorm: 920047 1 Tablet(s) PO QD No Start Date Inactive Premarin 1.25 mg Tab RxNorm: 993163 1 Tablet(s) PO QD No Start Date 1 Inactive Flonase 50 mcg/Actuation Nasal [place] RxNorm: 7761345 1 [place] CECEL[place] AL BID No Start Date 03/18/2012 Inactive Terbinafine 250 mg Tab RxNorm: 714114 1 Tablet(s) PO QD No Start Da te 04/03/2010 Inactive Fexofenadine 180 mg Tab RxNorm: 0578299 1 Tablet(s) PO QD No Start Date 09/06/2015 Inactive baclofen 20 mg tablet RxNorm: 650861 1 Tablet(s) PO TID as needed N o Start Date 05/25/2014 Inactive Diovan 160 mg Tab RxNorm: 612659 1 Tablet(s) PO QD No Start Date 09/12 Inactive mupirocin 2 % topical ointment RxNorm: 757578 1 Application TOP QID No Start Date 04/25/2016 Inactive ZOFRAN ODT 4 mg Tab, Rapid Dissolve RxNorm: 437262 1 Tablet(s) PO Q4H No Start Date 03/18/2012 Inactive as needed for nausea and vomiting Alprazolam 0.5 mg Tab RxNorm: 577582 1 Tablet(s) PO BID PRN No Star t Date 01/12/2010 Inactive cyclobenzaprine 10 mg tablet RxNorm: 707740 1 Tablet(s) PO TID as needed for muscle spasm No Start Date 10/08/2017 Inactive Albuterol 0.083% Aerosol Solution RxNorm: 1 Appl ication INH Q4H Use one ampule every 4 hrs with nebulizer as needed for shortness of breath. No Start Date 10/09/2010 Inactive lorazepam 1 mg tablet RxNorm: 793094 1 1/2 Tablet(s) PO QHS No Star t Date 02/02/2016 Inactive Melatonin 3 mg Tab RxNorm: 695869 Tablet(s) PO PRN No Start Date 07/11 Inactive Medrol (Dustin) 4 mg Tabs in a Dose Pack RxNorm: 926093 Tablet(s) PO N o Start Date 11/28/2010 Inactive lorazepam 1 mg tablet RxNorm: 097010 1 Tablet(s) PO QHS as need ed for sleep No Start Date 01/30/2016 Inactive hydrocodone-acetaminophen 10 mg-325 mg Tab RxNorm: 9524476 1-2 Tablet(s) PO QID as needed for severe pain No Start Date 03/24/2012 Inactive celecoxib 200 mg capsule RxNorm: 136317 1 Capsule(s) PO BID No Star t Date 06/26/2019 Inactive amlodipine 5 mg-benazepril 20 mg capsule RxNorm: 613415 1 Capsu le(s) PO QD No Start Date 04/10/2017 Inactive Bystolic 20 mg tablet RxNorm: 102369 1/2 Tablet(s) PO QAM No Start Date 01/23/2016 Inactive Bystolic 20 mg tablet RxNorm: 386074 1 Tablet(s) PO QAM No Start Da te 04/25/2016 Inactive Ambien 10 mg Tab RxNorm: 741006 1 Tablet(s) PO QHS No Start Date 05/11 Inactive Klor-Con 8 mEq Tab RxNorm: 870091 1 Tablet(s) PO QD when takes lasix No Start Date 03/06/2010 Inactive aspirin 81 mg tablet RxNorm: 499267 1 Tablet(s) PO QD No Start Date 0 01/29/2018 Inactive hydrocodone-acetaminophen 10 mg-325 mg Tab RxNorm: 0514062 1-2 T ablet(s) PO QID No Start Date 01/10/2012 Inactive Bystolic 10 mg tablet RxNorm: 000833 1 Tablet(s) PO QAM take one daily in the morning. No Start Date 05/28/2013 Inactive nystatin 100,000 unit/mL Oral Susp RxNorm: 680553 5 Milliliter( s) PO QID No Start Date 03/18/2012 Inactive swish and spit scopolamine 1.5 mg 72 hr Transderm Patch RxNorm: 940221 1 Unit Dose TD Q72H for motion sickness No Start Date 12/23/2013 Inactive Hydrocodone-Acetaminophen 10 mg-750 mg Tab RxNorm: 644548 1 Tablet(s) PO Q4H PRN No Start Date 01/12/2010 Inactive Soma 350 mg tablet RxNorm: 527763 1 Tablet(s) PO TID as needed for spasm No Start Date 01/12/2013 Inactive baclofen 10 mg tablet RxNorm: 818360 1 Tablet(s) PO TID as needed for muscle spasm No Start Date 09/18/2019 Inactive Soma 350 mg Tab RxNorm: 424856 1 Tablet(s) PO TID for spasm No Star t Date 01/31/2012 Inactive Co Q-10 400 mg capsule RxNorm: 731484 1 Capsule(s) PO QD No Start D ate 01/21/2019 Inactive nystatin 100,000 unit/gram topical cream RxNorm: 463263 Applica tion TOP BID No Start Date 03/22/2015 Inactive Exforge 5 mg-160 mg Tab RxNorm: 451076 1 Tablet(s) PO QD No Start D ate 10/09/2010 Inactive Hydrocodone-Acetaminophen 7.5 mg-650 mg Tab RxNorm: 242585 1 Ta blet(s) PO Q4H No Start Date 03/07/2010 Inactive Robaxin-750 750 mg Tab RxNorm: 933429 1-2 Tablet(s) PO TID prn spasm No Start Date 05/21/2011 Inactive amlodipine 5 mg tablet RxNorm: 352496 1 Tablet(s) PO QHS No Start D ate 09/29/2015 Inactive oxycodone-acetaminophen 10 mg-325 mg tablet RxNorm: 6327154 1-2 Tablet(s) PO Q6H No Start Date 06/16/2018 Inactive Triamterene-Hydrochlorothiazide 75 mg-50 mg Tab RxNorm: 3108 18 1 Tablet(s) PO QD No Start Date 02/08/2010 Inactive Alprazolam 0.5 mg Tab RxNorm: 750011 2 Tablet(s) PO QD prn No Start Date 03/07/2010 Inactive Bystolic 20 mg tablet RxNorm: 818430 1 Tablet(s) PO QAM No Start Da te 08/17/2015 Inactive ketorolac 10 mg tablet RxNorm: 874861 1 Tablet(s) PO QID prn he adache No Start Date 07/17/2012 Inactive acyclovir 800 mg Tab RxNorm: 154106 1 Tablet(s) PO BID No Start Date 03/18/2012 Inactive duloxetine 60 mg capsule,delayed release RxNorm: 465509 1 Capsu le(s) PO QD No Start Date 09/29/2015 Inactive Norvasc 5 mg tablet RxNorm: 164066 1 Tablet(s) PO QHS No Start Date 1 10/18/2014 Inactive promethazine 25 mg tablet RxNorm: 943488 1 Tablet(s) PO Q8H use sparingly No Start Date 07/22/2013 Inactive alprazolam 0.5 mg tablet RxNorm: 519159 3 Tablet(s) PO QHS No Start Date 06/06/2015 Inactive Lunesta 3 mg tablet RxNorm: 366003 1 Tablet(s) PO QHS No Start Date 0 09/20/2017 Inactive hydrocodone-acetaminophen 10 mg-325 mg Tab RxNorm: 2644901 1-2 Tablet(s) PO TID as needed for pain No Start Date 12/10/2011 Inactive Coricidin HBP Cough & Cold 4 mg-30 mg Tab RxNorm: 7095530 Tablet (s) PO PRN No Start Date 10/09/2010 Inactive Bactroban 2 % Ointment RxNorm: 123213 Application TOP QID to so res No Start Date 02/22/2012 Inactive Flonase 50 mcg/actuation Nasal [place] RxNorm: 368138 2 [place] AL QHS No Start Date 03/03/2014 Inactive Medication Administered No Medication Administered data Immunizations Vaccine Codes Date Status Tetanus, Diptheria, Pertussis CVX: 115 02/27/2014 Results Observation Observation Code Item Item Code Result Date S ervice Location MEAN GLUC 1372185 Calc Mean Gluc 209 mg/dL 02/12/2020 Unkn own GLYCOSYLATED HEMOGLOBIN TEST 42244 Hgb A1c 42239-1 8.9 % 0 02/12/2020 Unknown GFR CALC 9090111 GFR Non Afr Amr >60 mL/min 02/12/2020 Un known GFR CALC 7490644 GFR Afr Amr >60 mL/min 02/12/2020 Unknow n COMPREHENSIVE METABOLIC 17976 AST 27 U/L 2019 Unknown COMPREHENSIVE METABOLIC 63334 ALT 16 U/L 2019 Unknown COMPREHENSIVE METABOLIC 54710 BUN 22 mg/dL 2019 Unknown COMPREHENSIVE METABOLIC 35360 ALBUMIN 3.9 g/dL 2019 Unknown COMPREHENSIVE METABOLIC 56165 CHLORIDE 98 mmol/L 2019 Unknown COMPREHENSIVE METABOLIC 61443 Bili Total 0.5 mg/dL 02/11 Unknown COMPREHENSIVE METABOLIC 45280 ALK PHOS 72 U/L 2019 Unknown COMPREHENSIVE METABOLIC 17743 SODIUM 137 mmol/L 02/11 Unknown COMPREHENSIVE METABOLIC 03800 CREATININE 0.96 mg/dL 12/2019 Unknown COMPREHENSIVE METABOLIC 37208 CALCIUM 9.1 mg/dL 2019 Unknown COMPREHENSIVE METABOLIC 38668 POTASSIUM 4.6 mmol/L 02/11 Unknown COMPREHENSIVE METABOLIC 34697 Total Protein 6.5 g/dL Unknown COMPREHENSIVE METABOLIC 34501 Glucose 129 mg/dL 2019 Unknown COMPREHENSIVE METABOLIC 08106 Bicarbonate 31 mmol/L 12/2019 Unknown COMPREHENSIVE METABOLIC 39219 AGAP 8 mmol/L 2019 Unknown COMPREHENSIVE METABOLIC 04728 AST 15 U/L 2019 Unknown COMPREHENSIVE METABOLIC 28875 ALT 13 U/L 2019 Unknown COMPREHENSIVE METABOLIC 58799 BUN 12 mg/dL 2019 Unknown COMPREHENSIVE METABOLIC 41128 ALBUMIN 3.9 g/dL 2019 Unknown COMPREHENSIVE METABOLIC 12004 CHLORIDE 97 mmol/L 2019 Unknown COMPREHENSIVE METABOLIC 87010 Bili Total 0.4 mg/dL 09/29 Unknown COMPREHENSIVE METABOLIC 18853 ALK PHOS 130 U/L 2019 Unknown COMPREHENSIVE METABOLIC 65727 SODIUM 136 mmol/L 09/29 Unknown COMPREHENSIVE METABOLIC 58636 CREATININE 0.92 mg/dL 09/11 Unknown COMPREHENSIVE METABOLIC 02992 CALCIUM 9.1 mg/dL 2019 Unknown COMPREHENSIVE METABOLIC 51812 POTASSIUM 4.4 mmol/L 09/29 Unknown COMPREHENSIVE METABOLIC 55210 Total Protein 6.2 g/dL Unknown COMPREHENSIVE METABOLIC 69431 Glucose 391 mg/dL 2019 Unknown COMPREHENSIVE METABOLIC 43172 Bicarbonate 30 mmol/L 09/11 Unknown COMPREHENSIVE METABOLIC 24486 AGAP 9 mmol/L 2019 Unknown MEAN GLUC 7543622 Calc Mean Gluc 332 mg/dL 09/29/2019 Unkn own COMPLETE BLOOD COUNT [id number] WBC 7.0 10e9/L 09/29/19 Unknown COMPLETE BLOOD COUNT [id number] RBC 4.69 10e12/L 2019 Unknown COMPLETE BLOOD COUNT [id number] HEMOGLOBIN 14.6 g/dL 09/29/19 Unknown COMPLETE BLOOD COUNT [id number] HEMATOCRIT 45.2 % 09/29/19 Unknown COMPLETE BLOOD COUNT [id number] MCV 96.4 fL 0 Unknown COMPLETE BLOOD COUNT 7666627 MCH 31.1 pg 0 Unknown COMPLETE BLOOD COUNT 1209435 MCHC 32.3 g/dL 0 Unknown COMPLETE BLOOD COUNT [id number] PLATELET COUNT 209 10e9/L Unknown COMPLETE BLOOD COUNT [id number] Mean Plt Volume 9.8 fL Unknown COMPLETE BLOOD COUNT [id number] Neut Auto 48.1 % 0 Unknown COMPLETE BLOOD COUNT [id number] Lymph Auto 36.5 % 09/29/19 Unknown COMPLETE BLOOD COUNT [id number] Caroline Auto 8.6 % 0 Unknown COMPLETE BLOOD COUNT [id number] RDW 13.4 % 0 Unknown COMPLETE BLOOD COUNT [id number] Eos Auto 6.5 % 0 Unknown COMPLETE BLOOD COUNT [id number] Baso Auto 0.3 % 0 Unknown COMPLETE BLOOD COUNT [id number] Neutrophil Abs 3.37 10e9/L Unknown COMPLETE BLOOD COUNT [id number] Lymphocyte Abs 2.56 10e9/L Unknown COMPLETE BLOOD COUNT [id number] Monocyte Abs 0.60 10e9/L 09/11 Unknown COMPLETE BLOOD COUNT [id number] Eosinophil Abs 0.46 10e9/L Unknown COMPLETE BLOOD COUNT [id number] RDW-SD 45.9 fL 01/20/202 0 Unknown COMPLETE BLOOD COUNT [id number] Basophil Abs 0.02 10e9/L 09/11 Unknown LIPID GROUP 34070 Cholesterol 248 mg/dL 09/29/2019 Unkno wn LIPID GROUP 22955 Triglyceride 898 mg/dL 09/29/2019 Unkn own LIPID GROUP 92264 HDL CHOLESTEROL 41 mg/dL 09/29/2019 U nknown LIPID GROUP 70964 Chol/HDL Ratio 6.05 ratio 09/29/2019 U nknown LIPID GROUP 47481 NON-HDL Chol 207 mg/dL 09/29/2019 Unkn own LIPID GROUP 69966 LDL Cholesterol N/A Trig >400 020 Unknown GLYCOSYLATED HEMOGLOBIN TEST 55122 Hgb A1c 04110-3 13.2 % 0 09/29/2019 Unknown FREE T4 97299 T4 Free 0.75 ng/dL 09/29/2019 Unknown GFR CALC 8250013 GFR Non Afr Amr >60 mL/min 09/29/2019 Un known GFR CALC 5130878 GFR Afr Amr >60 mL/min 09/29/2019 Unknow n THYROID STIMULATING HORMONE 03700 TSH 4.245 uIU/mL 09/29/2019 Unknown COMPLETE BLOOD COUNT [id number] WBC 10.7 10e9/L 018 Unknown COMPLETE BLOOD COUNT [id number] RBC 4.59 10e12/L 2017 Unknown COMPLETE BLOOD COUNT 1443117 HEMOGLOBIN 14.8 g/dL 12/11/19 18 Unknown COMPLETE BLOOD COUNT [id number] HEMATOCRIT 44.9 % 12/11/19 18 Unknown COMPLETE BLOOD COUNT [id number] MCV 97.8 fL 8 Unknown COMPLETE BLOOD COUNT 5981455 MCH 32.2 pg 8 Unknown COMPLETE BLOOD COUNT 9486690 MCHC 33.0 g/dL 8 Unknown COMPLETE BLOOD COUNT 7875774 PLATELET COUNT 261 10e9/L 10/2017 Unknown COMPLETE BLOOD COUNT [id number] Mean Plt Volume 9.5 fL 10/2017 Unknown COMPLETE BLOOD COUNT 5677698 Neut Auto 59.9 % 8 Unknown COMPLETE BLOOD COUNT [id number] Lymph Auto 27.4 % 12/11/19 18 Unknown COMPLETE BLOOD COUNT [id number] Caroline Auto 8.2 % 8 Unknown COMPLETE BLOOD COUNT 1787660 RDW 13.3 % 8 Unknown COMPLETE BLOOD COUNT 6938481 Eos Auto 4.1 % 8 Unknown COMPLETE BLOOD COUNT 5862375 Baso Auto 0.4 % 8 Unknown COMPLETE BLOOD COUNT [id number] Neutrophil Abs 6.41 10e9/L Unknown COMPLETE BLOOD COUNT [id number] Lymphocyte Abs 2.93 10e9/L Unknown COMPLETE BLOOD COUNT [id number] Monocyte Abs 0.88 10e9/L 10/2017 Unknown COMPLETE BLOOD COUNT [id number] Eosinophil Abs 0.44 10e9/L Unknown COMPLETE BLOOD COUNT 5349247 RDW-SD 46.2 fL 8 Unknown COMPLETE BLOOD COUNT [id number] Basophil Abs 0.04 10e9/L 10/2017 Unknown THYROID STIMULATING HORMONE 49882 TSH 4.015 uIU/mL 12/10/2017 Unknown COMPREHENSIVE METABOLIC 16668 AST 25 U/L 2017 Unknown COMPREHENSIVE METABOLIC 67518 ALT 17 U/L 2017 Unknown COMPREHENSIVE METABOLIC 90852 BUN 19 mg/dL 2017 Unknown COMPREHENSIVE METABOLIC 42215 ALBUMIN 4.0 g/dL 2017 Unknown COMPREHENSIVE METABOLIC 31517 CHLORIDE 91 mmol/L 2017 Unknown COMPREHENSIVE METABOLIC 56870 Bili Total 0.5 mg/dL 12/10 Unknown COMPREHENSIVE METABOLIC 55974 ALK PHOS 75 U/L 2017 Unknown COMPREHENSIVE METABOLIC 09333 SODIUM 136 mmol/L 12/10 Unknown COMPREHENSIVE METABOLIC 55172 CREATININE 1.05 mg/dL 10/2017 Unknown COMPREHENSIVE METABOLIC 11527 CALCIUM 8.9 mg/dL 2017 Unknown COMPREHENSIVE METABOLIC 26188 POTASSIUM 3.4 mmol/L 12/10 Unknown COMPREHENSIVE METABOLIC 37990 Total Protein 6.5 g/dL Unknown COMPREHENSIVE METABOLIC 75979 Glucose 138 mg/dL 2017 Unknown COMPREHENSIVE METABOLIC 06449 Bicarbonate 35 mmol/L 10/2017 Unknown COMPREHENSIVE METABOLIC 29875 AGAP 10 mmol/L 2017 Unknown MEAN GLUC 7016363 Calc Mean Gluc 171 mg/dL 12/10/2017 Unkn own LIPID GROUP 71474 Cholesterol 204 mg/dL 12/10/2017 Unkno wn LIPID GROUP 76368 Triglyceride 411 mg/dL 12/10/2017 Unkn own LIPID GROUP 06563 HDL CHOLESTEROL 50 mg/dL 12/10/2017 U nknown LIPID GROUP 72655 Chol/HDL Ratio 4.08 ratio 12/10/2017 U nknown LIPID GROUP 08021 NON-HDL Chol 154 mg/dL 12/10/2017 Unkn own LIPID GROUP 38886 LDL Cholesterol N/A Trig >400 018 Unknown GLYCOSYLATED HEMOGLOBIN TEST 10440 Hgb A1c 60530-0 7.6 % 0 12/10/2017 Unknown FREE T4 48351 T4 Free 1.40 ng/dL 12/10/2017 Unknown GFR CALC 0038289 GFR Non Afr Amr 55 mL/min 12/10/2017 Unk nown GFR CALC 3878957 GFR Afr Amr >60 mL/min 12/10/2017 Unknow n GFR CALC 4194186 GFR Non Afr Amr 48 mL/min 06/28/2017 Unk nown GFR CALC 7687643 GFR Afr Amr 59 mL/min 06/28/2017 Unknown COMPREHENSIVE METABOLIC 80913 AST 32 U/L 2016 Unknown COMPREHENSIVE METABOLIC 13260 ALT 22 U/L 2016 Unknown COMPREHENSIVE METABOLIC 29789 BUN 23 mg/dL 2016 Unknown COMPREHENSIVE METABOLIC 78798 ALBUMIN 4.7 g/dL 2016 Unknown COMPREHENSIVE METABOLIC 43595 CHLORIDE 89 mmol/L 2016 Unknown COMPREHENSIVE METABOLIC 59069 Bili Total 0.5 mg/dL 06/28 Unknown COMPREHENSIVE METABOLIC 09456 ALK PHOS 90 U/L 2016 Unknown COMPREHENSIVE METABOLIC 89303 SODIUM 135 mmol/L 06/28 Unknown COMPREHENSIVE METABOLIC 53740 CREATININE 1.18 mg/dL 06/10 Unknown COMPREHENSIVE METABOLIC 64397 CALCIUM 9.7 mg/dL 2016 Unknown COMPREHENSIVE METABOLIC 97518 POTASSIUM 3.5 mmol/L 06/28 Unknown COMPREHENSIVE METABOLIC 51023 Total Protein 7.7 g/dL Unknown COMPREHENSIVE METABOLIC 20481 Glucose 129 mg/dL 2016 Unknown COMPREHENSIVE METABOLIC 85385 Bicarbonate 34 mmol/L 06/10 Unknown COMPREHENSIVE METABOLIC 42007 AGAP 12 mmol/L 2016 Unknown LIPID GROUP 46580 HDL TEST 64 MG/DL 08/27/2014 Unknown LIPID GROUP 49780 TRIG 222 MG/DL 08/27/2014 Unknown LIPID GROUP 72572 TEST LDL 209 MG/DL 08/27/2014 Unknown LIPID GROUP 02652 CHOL 317 MG/DL 08/27/2014 Unknown LIPID GROUP 50284 RCHOL/HDL 4.95 RATIO 08/27/2014 Unknow n LIPID GROUP 45939 NON-HDL CH 253 MG/DL 08/27/2014 Unknow n GFR CALC 5716835 GFR AA >60 ML/MIN 08/27/2014 Unknown GFR CALC 5568289 GFR NON-AA >60 ML/MIN 08/27/2014 Unknown COMPLETE BLOOD COUNT 2185993 WBC 7.0 10e9/L 08/27/20 14 Unknown COMPLETE BLOOD COUNT [id number] RBC 4.98 10e12/L 2013 Unknown COMPLETE BLOOD COUNT 5441956 HGB 15.6 g/dL 4 Unknown COMPLETE BLOOD COUNT 8601290 HCT DET 46.5 % 4 Unknown COMPLETE BLOOD COUNT 3150526 MCV 93.4 fL 4 Unknown COMPLETE BLOOD COUNT 2270894 MCH 31.3 pg 4 Unknown COMPLETE BLOOD COUNT 8651557 MCHC 33.5 g/dL 4 Unknown COMPLETE BLOOD COUNT 4085901 PLT 309 10e9/L 08/27/20 14 Unknown COMPLETE BLOOD COUNT 7953969 MPV 9.6 fL 4 Unknown COMPLETE BLOOD COUNT 5228043 CADEN % 57.2 % 4 Unknown COMPLETE BLOOD COUNT 5233027 LY % 33.2 % 4 Unknown COMPLETE BLOOD COUNT 6380031 MON % 7.3 % 4 Unknown COMPLETE BLOOD COUNT [id number] EOS % 2.0 % 4 Unknown COMPLETE BLOOD COUNT 5588537 BASO % 0.3 % 4 Unknown COMPLETE BLOOD COUNT 9274917 RDW 13.7 % 4 Unknown COMPLETE BLOOD COUNT 3210526 ABS CADEN 4.00 10e9/L 014 Unknown COMPLETE BLOOD COUNT [id number] ABS LYMPH 2.32 10e9/L 014 Unknown COMPLETE BLOOD COUNT [id number] ABS MONO 0.51 10e9/L 014 Unknown COMPLETE BLOOD COUNT [id number] ABS EOS 0.14 10e9/L 014 Unknown COMPLETE BLOOD COUNT [id number] ABS BASO 0.02 10e9/L 014 Unknown COMPLETE BLOOD COUNT 3268741 RDW-SD 45.1 fL 4 Unknown COMPREHENSIVE METABOLIC 69174 AST 13 U/L 2013 Unknown COMPREHENSIVE METABOLIC 60508 ALT 11 IU/L 2013 Unknown COMPREHENSIVE METABOLIC 60382 BUN 23 MG/DL 2013 Unknown COMPREHENSIVE METABOLIC 20627 ALBUMIN 4.4 GM/DL 2013 Unknown COMPREHENSIVE METABOLIC 62392 CHLORIDE 99 MMOL/L 2013 Unknown COMPREHENSIVE METABOLIC 70703 BILI TOT 0.5 MG/DL 2013 Unknown COMPREHENSIVE METABOLIC 29150 ALK PHOS 56 U/L 2013 Unknown COMPREHENSIVE METABOLIC 70921 SODIUM 138 MMOL/L 08/27 Unknown COMPREHENSIVE METABOLIC 53971 CREATININE 0.95 MG/DL 08/10 Unknown COMPREHENSIVE METABOLIC 35852 CALCIUM 9.8 MG/DL 2013 Unknown COMPREHENSIVE METABOLIC 59545 POTASSIUM 3.5 MMOL/L 08/27 Unknown COMPREHENSIVE METABOLIC 76557 PROT TOT 6.8 GM/DL 2013 Unknown COMPREHENSIVE METABOLIC 03867 Glucose 90 MG/DL 2013 Unknown COMPREHENSIVE METABOLIC 06995 BICARB 34 MMOL/L 2013 Unknown COMPREHENSIVE METABOLIC 51911 ANION GAP 5 MEQ/L 2013 Unknown LIPASE 96428 LIPASE 11 IU/L 07/21/2014 Unknown AMYLASE 13926 AMYLASE 39 IU/L 07/21/2014 Unknown HEMOGLOBIN A1C (GLYCOSYLATED) 2364996 A1C [facility] 73039-4 6.2 % 03/05/2013 Unknown THYROID STIMULATING HORMONE 97475 TSH 6.986 uIU/ML 03/05/2013 Unknown COMPLETE BLOOD COUNT 1796580 WBC 12.7 10e9/L 013 Unknown COMPLETE BLOOD COUNT [id number] RBC 4.53 10e12/L 2012 Unknown COMPLETE BLOOD COUNT 3623758 HGB 14.7 g/dL 3 Unknown COMPLETE BLOOD COUNT 2049014 HCT DET 43.1 % 3 Unknown COMPLETE BLOOD COUNT 1995754 MCV 95.1 fL 3 Unknown COMPLETE BLOOD COUNT 1721403 MCH 32.5 pg 3 Unknown COMPLETE BLOOD COUNT 8858020 MCHC 34.1 g/dL 3 Unknown COMPLETE BLOOD COUNT 2418095 PLT 346 10e9/L 03/05/20 13 Unknown COMPLETE BLOOD COUNT 0727978 MPV 9.5 fL 3 Unknown COMPLETE BLOOD COUNT 5774465 CADEN % 67.6 % 3 Unknown COMPLETE BLOOD COUNT 2071761 LY % 22.1 % 3 Unknown COMPLETE BLOOD COUNT 5038116 MON % 6.6 % 3 Unknown COMPLETE BLOOD COUNT 7825102 EOS % 3.3 % 3 Unknown COMPLETE BLOOD COUNT 9029851 BASO % 0.4 % 3 Unknown COMPLETE BLOOD COUNT 4507047 RDW 14.0 % 3 Unknown COMPLETE BLOOD COUNT 0514835 ABS CADEN 8.59 10e9/L 013 Unknown COMPLETE BLOOD COUNT 9599996 ABS LYMPH 2.81 10e9/L 013 Unknown COMPLETE BLOOD COUNT 0644242 ABS MONO 0.84 10e9/L 013 Unknown COMPLETE BLOOD COUNT [id number] ABS EOS 0.42 10e9/L 013 Unknown COMPLETE BLOOD COUNT [id number] ABS BASO 0.05 10e9/L 013 Unknown COMPLETE BLOOD COUNT [id number] RDW-SD 46.0 fL 3 Unknown FREE T4 54473 FREE T4 1.14 NG/DL 03/05/2013 Unknown COMPREHENSIVE METABOLIC 25000 AST 17 U/L 2012 Unknown COMPREHENSIVE METABOLIC 42732 ALT 12 IU/L 2012 Unknown COMPREHENSIVE METABOLIC 03158 BUN 24 MG/DL 2012 Unknown COMPREHENSIVE METABOLIC 58539 ALBUMIN 4.2 GM/DL 2012 Unknown COMPREHENSIVE METABOLIC 59155 CHLORIDE 93 MMOL/L 2012 Unknown COMPREHENSIVE METABOLIC 88787 BILI TOT 0.5 MG/DL 2012 Unknown COMPREHENSIVE METABOLIC 45522 ALK PHOS 75 U/L 2012 Unknown COMPREHENSIVE METABOLIC 77875 SODIUM 141 MMOL/L 03/05 Unknown COMPREHENSIVE METABOLIC 87597 CREATININE 1.36 MG/DL 02/09 Unknown COMPREHENSIVE METABOLIC 25880 CALCIUM 9.2 MG/DL 2012 Unknown COMPREHENSIVE METABOLIC 56261 POTASSIUM 3.1 MMOL/L 03/05 Unknown COMPREHENSIVE METABOLIC 74956 PROT TOT 6.9 GM/DL 2012 Unknown COMPREHENSIVE METABOLIC 65883 Glucose 123 MG/DL 2012 Unknown COMPREHENSIVE METABOLIC 40234 BICARB 36 MMOL/L 2012 Unknown COMPREHENSIVE METABOLIC 19210 ANION GAP 12 MEQ/L 2012 Unknown GFR CALC 3529501 GFR AA 51.0L ML/MIN 03/05/2013 Unknow n GFR CALC 0436086 GFR NON-AA 42.0L ML/MIN 03/05/2013 Unkno wn COMPREHENSIVE METABOLIC 71052 AST 14 U/L 2012 Unknown COMPREHENSIVE METABOLIC 91293 ALT 11 IU/L 2012 Unknown COMPREHENSIVE METABOLIC 67148 BUN 16 MG/DL 2012 Unknown COMPREHENSIVE METABOLIC 26498 ALBUMIN 4.2 GM/DL 2012 Unknown COMPREHENSIVE METABOLIC 20819 CHLORIDE 98 MMOL/L 2012 Unknown COMPREHENSIVE METABOLIC 94720 BILI TOT 0.4 MG/DL 2012 Unknown COMPREHENSIVE METABOLIC 80759 ALK PHOS 77 U/L 2012 Unknown COMPREHENSIVE METABOLIC 13078 SODIUM 139 MMOL/L 09/25 Unknown COMPREHENSIVE METABOLIC 99973 CREATININE 0.86 MG/DL 09/10 Unknown COMPREHENSIVE METABOLIC 74884 CALCIUM 9.5 MG/DL 2012 Unknown COMPREHENSIVE METABOLIC 01405 POTASSIUM 3.8 MMOL/L 09/25 Unknown COMPREHENSIVE METABOLIC 96970 PROT TOT 6.8 GM/DL 2012 Unknown COMPREHENSIVE METABOLIC 19803 Glucose 91 MG/DL 2012 Unknown COMPREHENSIVE METABOLIC 52179 BICARB 32 MMOL/L 2012 Unknown COMPREHENSIVE METABOLIC 93704 ANION GAP 9 MEQ/L 2012 Unknown FREE T4 63041 FREE T4 0.98 NG/DL 09/25/2012 Unknown THYROID STIMULATING HORMONE 42687 TSH 1.736 uIU/ML 09/25/2012 Unknown C-REACTIVE PROTEIN (CRP) QUANT 51867 CRP 2.3 MG/DL 09/25/2012 Unknown COMPLETE BLOOD COUNT [id number] WBC 11.9 10e9/L 013 Unknown COMPLETE BLOOD COUNT 6129929 RBC 4.87 10e12/L 2012 Unknown COMPLETE BLOOD COUNT 9106702 HGB 15.1 g/dL 3 Unknown COMPLETE BLOOD COUNT 0935974 HCT DET 44.8 % 3 Unknown COMPLETE BLOOD COUNT 4648931 MCV 92.0 fL 3 Unknown COMPLETE BLOOD COUNT 5476103 MCH 31.0 pg 3 Unknown COMPLETE BLOOD COUNT [id number] MCHC 33.7 g/dL 3 Unknown COMPLETE BLOOD COUNT [id number] PLT 343 10e9/L 09/25/19 13 Unknown COMPLETE BLOOD COUNT [id number] MPV 9.0 fL 3 Unknown COMPLETE BLOOD COUNT [id number] CADEN % 68.2 % 3 Unknown COMPLETE BLOOD COUNT [id number] LY % 22.4 % 3 Unknown COMPLETE BLOOD COUNT [id number] MON % 6.4 % 3 Unknown COMPLETE BLOOD COUNT [id number] EOS % 2.7 % 3 Unknown COMPLETE BLOOD COUNT [id number] BASO % 0.3 % 3 Unknown COMPLETE BLOOD COUNT [id number] RDW 13.8 % 3 Unknown COMPLETE BLOOD COUNT [id number] ABS CADEN 8.12 10e9/L 013 Unknown COMPLETE BLOOD COUNT [id number] ABS LYMPH 2.67 10e9/L 013 Unknown COMPLETE BLOOD COUNT [id number] ABS MONO 0.76 10e9/L 013 Unknown COMPLETE BLOOD COUNT [id number] ABS EOS 0.32 10e9/L 013 Unknown COMPLETE BLOOD COUNT [id number] ABS BASO 0.04 10e9/L 013 Unknown COMPLETE BLOOD COUNT [id number] RDW-SD 45.6 fL 3 Unknown GFR CALC [id number] GFR AA >60 ML/MIN 09/25/2012 Unknown GFR CALC [id number] GFR NON-AA >60 ML/MIN 09/25/2012 Unknown ERYTHROCYTE SEDIMENTATION RATE [id number] ESR 19 MM/HR 05/06/2012 Unknown VITAMIN B 12 FOLIC ACID [id number] VIT B 12 922 PG/ML 04/11 Unknown VITAMIN B 12 FOLIC ACID [id number] FOLIC ACID 13.6 NG/ML Unknown URIC ACID [id number] URIC ACID 7.8 MG/DL 05/06/2012 Unknown COMPLETE BLOOD COUNT 11429 WBC 11.9 10e9/L 012 Unknown COMPLETE BLOOD COUNT 34721 RBC 5.30 10e12/L 2011 Unknown COMPLETE BLOOD COUNT 30943 HGB 16.6 g/dL 2 Unknown COMPLETE BLOOD COUNT 40399 HCT DET 47.2 % 2 Unknown COMPLETE BLOOD COUNT 72135 MCV 89.1 fL 2 Unknown COMPLETE BLOOD COUNT 57059 MCH 31.3 pg 2 Unknown COMPLETE BLOOD COUNT 42611 MCHC 35.2 g/dL 2 Unknown COMPLETE BLOOD COUNT [id number] PLT 362 10e9/L 05/06/20 12 Unknown COMPLETE BLOOD COUNT 52391 MPV 9.4 fL 2 Unknown COMPLETE BLOOD COUNT 80067 CADEN % 68.2 % 2 Unknown COMPLETE BLOOD COUNT 99481 LY % 22.0 % 2 Unknown COMPLETE BLOOD COUNT 41916 MON % 6.9 % 2 Unknown COMPLETE BLOOD COUNT 58114 EOS % 2.6 % 2 Unknown COMPLETE BLOOD COUNT 41096 BASO % 0.3 % 2 Unknown COMPLETE BLOOD COUNT 63761 RDW 12.8 % 2 Unknown COMPLETE BLOOD COUNT 19250 ABS CADEN 8.12 10e9/L 012 Unknown COMPLETE BLOOD COUNT 92947 ABS LYMPH 2.62 10e9/L 012 Unknown COMPLETE BLOOD COUNT 37154 ABS MONO 0.82 10e9/L 012 Unknown COMPLETE BLOOD COUNT 91206 ABS EOS 0.31 10e9/L 012 Unknown COMPLETE BLOOD COUNT 06261 ABS BASO 0.04 10e9/L 012 Unknown COMPLETE BLOOD COUNT 26897 RDW-SD 41.5 fL 2 Unknown GFR CALC [id number] GFR AA >60 ML/MIN 05/06/2012 Unknown GFR CALC [id number] GFR NON-AA 58.0L ML/MIN 05/06/2012 Unkno wn FREE T4 91639 FREE T4 1.15 NG/DL 05/06/2012 Unknown THYROID STIMULATING HORMONE 73697 TSH 1.568 uIU/ML 05/06/2012 Unknown COMPREHENSIVE METABOLIC 93930 AST 20 U/L 2011 Unknown COMPREHENSIVE METABOLIC 53766 ALT 12 IU/L 2011 Unknown COMPREHENSIVE METABOLIC 65148 BUN 20 MG/DL 2011 Unknown COMPREHENSIVE METABOLIC 99078 ALBUMIN 4.5 GM/DL 2011 Unknown COMPREHENSIVE METABOLIC 71526 CHLORIDE 91 MMOL/L 2011 Unknown COMPREHENSIVE METABOLIC 36660 BILI TOT 0.4 MG/DL 2011 Unknown COMPREHENSIVE METABOLIC 31452 ALK PHOS 73 U/L 2011 Unknown COMPREHENSIVE METABOLIC 29032 SODIUM 139 MMOL/L 05/06 Unknown COMPREHENSIVE METABOLIC 32710 CREATININE 1.02 MG/DL 04/11 Unknown COMPREHENSIVE METABOLIC 58107 CALCIUM 9.7 MG/DL 2011 Unknown COMPREHENSIVE METABOLIC 51288 POTASSIUM 3.1 MMOL/L 05/06 Unknown COMPREHENSIVE METABOLIC 73962 PROT TOT 7.3 GM/DL 2011 Unknown COMPREHENSIVE METABOLIC 27793 Glucose 118 MG/DL 2011 Unknown COMPREHENSIVE METABOLIC 65292 BICARB 33 MMOL/L 2011 Unknown COMPREHENSIVE METABOLIC 57683 ANION GAP 15 MEQ/L 2011 Unknown Procedures Procedure Codes Date COMPREHEN METABOLIC PANEL CPT-4: 39906 02/12/2020 A1C HPLC CPT-4: 22819 02/12/2020 ROUTINE VENIPUNCTURE CPT-4: 21077 09/29/2019 URINALYSIS NONAUTO W/O SCOPE CPT-4: 36189 09/29/2019 COMPREHEN METABOLIC PANEL CPT-4: 43841 09/29/2019 LIPID PANEL CPT-4: 36670 09/29/2019 A1C HPLC CPT-4: 36551 09/29/2019 ASSAY OF FREE THYROXINE CPT-4: 75115 09/29/2019 ASSAY THYROID STIM HORMONE CPT-4: 32431 09/29/2019 COMPLETE CBC W/AUTO DIFF WBC CPT-4: 81189 09/29/2019 URINALYSIS NONAUTO W/O SCOPE CPT-4: 59782 09/30/2018 MICROALBUMIN QUANTITATIVE CPT-4: 92289 09/30/2018 CEFTRIAXONE SODIUM INJECTION CPT-4: J0696 06/19/2018 THER/PROPH/DIAG INJ SC/IM CPT-4: 42640 06/19/2018 CEFTRIAXONE SODIUM INJECTION CPT-4: J0696 06/17/2018 THER/PROPH/DIAG INJ SC/IM CPT-4: 16059 06/17/2018 THER/PROPH/DIAG INJ SC/IM CPT-4: 51357 05/16/2018 KETOROLAC TROMETHAMINE INJ CPT-4: J1885 05/16/2018 ONDANSETRON HCL INJECTION CPT-4: J2405 05/16/2018 THER/PROPH/DIAG INJ SC/IM CPT-4: 76601 05/16/2018 ROUTINE VENIPUNCTURE CPT-4: 70669 03/20/2018 COMPREHEN METABOLIC PANEL CPT-4: 48109 03/20/2018 DEXAMETHASONE SODIUM PHOS CPT-4: J1100 02/11/2018 THER/PROPH/DIAG INJ SC/IM CPT-4: 54639 02/11/2018 TRIAMCINOLONE ACET INJ NOS CPT-4: J3301 02/11/2018 CEFTRIAXONE SODIUM INJECTION CPT-4: J0696 02/01/2018 THER/PROPH/DIAG INJ SC/IM CPT-4: 89957 02/01/2018 CEFTRIAXONE SODIUM INJECTION CPT-4: J0696 01/30/2018 THER/PROPH/DIAG INJ SC/IM CPT-4: 93282 01/30/2018 ROUTINE VENIPUNCTURE CPT-4: 35241 12/10/2017 ASSAY OF FREE THYROXINE CPT-4: 61391 12/10/2017 ASSAY THYROID STIM HORMONE CPT-4: 13314 12/10/2017 COMPREHEN METABOLIC PANEL CPT-4: 33022 12/10/2017 COMPLETE CBC W/AUTO DIFF WBC CPT-4: 27920 12/10/2017 LIPID PANEL CPT-4: 74318 12/10/2017 A1C HPLC CPT-4: 82811 12/10/2017 CEFTRIAXONE SODIUM INJECTION CPT-4: J0696 12/10/2017 THER/PROPH/DIAG INJ SC/IM CPT-4: 07391 12/10/2017 CEFTRIAXONE SODIUM INJECTION CPT-4: J0696 12/07/2017 THER/PROPH/DIAG INJ SC/IM CPT-4: 52433 12/07/2017 DEXAMETHASONE SODIUM PHOS CPT-4: J1100 12/07/2017 THER/PROPH/DIAG INJ SC/IM CPT-4: 50687 12/07/2017 CEFTRIAXONE SODIUM INJECTION CPT-4: J0696 10/08/2017 THER/PROPH/DIAG INJ SC/IM CPT-4: 55481 10/08/2017 CEFTRIAXONE SODIUM INJECTION CPT-4: J0696 09/21/2017 THER/PROPH/DIAG INJ SC/IM CPT-4: 72054 09/21/2017 CEFTRIAXONE SODIUM INJECTION CPT-4: J0696 09/20/2017 THER/PROPH/DIAG INJ SC/IM CPT-4: 33843 09/20/2017 REMOVAL OF NAIL PLATE CPT-4: 86968 08/29/2017 THER/PROPH/DIAG INJ SC/IM CPT-4: 26029 08/29/2017 TRIAMCINOLONE ACET INJ NOS CPT-4: J3301 08/29/2017 CEFTRIAXONE SODIUM INJECTION CPT-4: J0696 08/29/2017 THER/PROPH/DIAG INJ SC/IM CPT-4: 64675 08/29/2017 DESTRUCT PREMALG LESION (Cryosurgery) CPT-4: 15187 ROUTINE VENIPUNCTURE CPT-4: 69361 06/27/2017 ASSAY OF FREE THYROXINE CPT-4: 63424 06/27/2017 ASSAY THYROID STIM HORMONE CPT-4: 98805 06/27/2017 COMPREHEN METABOLIC PANEL CPT-4: 81795 06/27/2017 COMPLETE CBC W/AUTO DIFF WBC CPT-4: 48208 06/27/2017 EXC TR-EXT B9+REECE 0.5 CM< CPT-4: 14318 01/24/2017 THER/PROPH/DIAG INJ SC/IM CPT-4: 59621 08/02/2016 DEXAMETHASONE SODIUM PHOS CPT-4: J1100 08/02/2016 DESTRUCT PREMALG LESION (Cryosurgery) CPT-4: 08786 EXC TR-EXT B9+REECE 0.5 CM< CPT-4: 27577 08/01/2016 AEROBIC WOUND CULTURE & STN CPT-4: 73400 07/06/2016 CEFTRIAXONE SODIUM INJECTION CPT-4: J0696 05/25/2016 THER/PROPH/DIAG INJ SC/IM CPT-4: 43568 05/25/2016 THER/PROPH/DIAG INJ SC/IM CPT-4: 73010 04/26/2016 DEXAMETHASONE SODIUM PHOS CPT-4: J1100 04/26/2016 CEFTRIAXONE SODIUM INJECTION CPT-4: J0696 04/26/2016 THER/PROPH/DIAG INJ SC/IM CPT-4: 23960 04/26/2016 THER/PROPH/DIAG INJ SC/IM CPT-4: 50415 02/09/2016 TRIAMCINOLONE ACET INJ NOS CPT-4: J3301 02/09/2016 URINALYSIS NONAUTO W/O SCOPE CPT-4: 43698 01/24/2016 URINE CULTURE/ COLONY COUNT CPT-4: 38166 01/24/2016 THER/PROPH/DIAG INJ SC/IM CPT-4: 24104 12/08/2015 TRIAMCINOLONE ACET INJ NOS CPT-4: J3301 12/08/2015 THER/PROPH/DIAG INJ SC/IM CPT-4: 18076 10/07/2015 TRIAMCINOLONE ACET INJ NOS CPT-4: J3301 10/07/2015 DESTRUCT PREMALG LESION (Cryosurgery) CPT-4: 37008 THER/PROPH/DIAG INJ SC/IM CPT-4: 62324 03/16/2015 METHYLPREDNISOLONE 40 MG INJ CPT-4: J1030 03/16/2015 DESTRUCT PREMALG LESION (Cryosurgery) CPT-4: 52853 THER/PROPH/DIAG INJ SC/IM CPT-4: 98947 09/11/2014 METHYLPREDNISOLONE 40 MG INJ CPT-4: J1030 09/11/2014 TRIAMCINOLONE ACET INJ NOS CPT-4: J3301 09/11/2014 CEFTRIAXONE SODIUM INJECTION CPT-4: J0696 09/11/2014 THER/PROPH/DIAG INJ SC/IM CPT-4: 33892 09/11/2014 ROUTINE VENIPUNCTURE CPT-4: 99107 08/27/2014 COMPREHEN METABOLIC PANEL CPT-4: 07483 08/27/2014 COMPLETE CBC W/AUTO DIFF WBC CPT-4: 72029 08/27/2014 LIPID PANEL CPT-4: 47689 08/27/2014 ROUTINE VENIPUNCTURE CPT-4: 89447 07/21/2014 ASSAY OF AMYLASE CPT-4: 50004 07/21/2014 ASSAY OF LIPASE CPT-4: 17241 07/21/2014 THER/PROPH/DIAG INJ SC/IM CPT-4: 97656 07/15/2014 TRIAMCINOLONE ACET INJ NOS CPT-4: J3301 07/15/2014 ROUTINE VENIPUNCTURE CPT-4: 37443 05/14/2014 ASSAY OF FREE THYROXINE CPT-4: 55429 05/14/2014 ASSAY THYROID STIM HORMONE CPT-4: 92494 05/14/2014 COMPREHEN METABOLIC PANEL CPT-4: 10016 05/14/2014 COMPLETE CBC W/AUTO DIFF WBC CPT-4: 65248 05/14/2014 LIPID PANEL CPT-4: 32039 05/14/2014 CEFTRIAXONE SODIUM INJECTION CPT-4: J0696 04/21/2014 THER/PROPH/DIAG INJ SC/IM CPT-4: 26799 04/21/2014 THER/PROPH/DIAG INJ SC/IM CPT-4: 57208 04/21/2014 TRIAMCINOLONE ACET INJ NOS CPT-4: J3301 04/21/2014 THER/PROPH/DIAG INJ SC/IM CPT-4: 76787 03/04/2014 METHYLPREDNISOLONE 40 MG INJ CPT-4: J1030 03/04/2014 TRIAMCINOLONE ACET INJ NOS CPT-4: J3301 03/04/2014 CEFTRIAXONE SODIUM INJECTION CPT-4: J0696 03/04/2014 THER/PROPH/DIAG INJ SC/IM CPT-4: 28509 03/04/2014 TDAP VACCINE 7 YRS/> IM CPT-4: 97403 02/27/2014 IMMUNIZATION ADMIN CPT-4: 13364 02/27/2014 DESTRUCT PREMALG LESION (Cryosurgery) CPT-4: 91261 DESTRUCT PREMALG LES 2-14 CPT-4: 17092 01/13/2014 THER/PROPH/DIAG INJ SC/IM CPT-4: 36579 10/21/2013 METHYLPREDNISOLONE 40 MG INJ CPT-4: J1030 10/21/2013 TRIAMCINOLONE ACET INJ NOS CPT-4: J3301 10/21/2013 CEFTRIAXONE SODIUM INJECTION CPT-4: J0696 08/27/2013 THER/PROPH/DIAG INJ SC/IM CPT-4: 84796 08/27/2013 THER/PROPH/DIAG INJ SC/IM CPT-4: 24610 08/27/2013 METHYLPREDNISOLONE 40 MG INJ CPT-4: J1030 08/27/2013 TRIAMCINOLONE ACET INJ NOS CPT-4: J3301 08/27/2013 THER/PROPH/DIAG INJ SC/IM CPT-4: 64623 06/23/2013 METHYLPREDNISOLONE 40 MG INJ CPT-4: J1030 06/23/2013 TRIAMCINOLONE ACET INJ NOS CPT-4: J3301 06/23/2013 THER/PROPH/DIAG INJ SC/IM CPT-4: 43050 05/26/2013 METHYLPREDNISOLONE 40 MG INJ CPT-4: J1030 05/26/2013 TRIAMCINOLONE ACET INJ NOS CPT-4: J3301 05/26/2013 ROUTINE VENIPUNCTURE CPT-4: 75443 03/05/2013 ASSAY OF FREE THYROXINE CPT-4: 68013 03/05/2013 ASSAY THYROID STIM HORMONE CPT-4: 15867 03/05/2013 COMPREHEN METABOLIC PANEL CPT-4: 60622 03/05/2013 COMPLETE CBC W/AUTO DIFF WBC CPT-4: 05916 03/05/2013 A1C GLYCOSYLATED HEMOGLOBIN TEST CPT-4: 86121 013 DRAIN/INJECT JOINT/BURSA CPT-4: 65465 12/04/2012 METHYLPREDNISOLONE 40 MG INJ CPT-4: J1030 12/04/2012 TRIAMCINOLONE ACET INJ NOS CPT-4: J3301 12/04/2012 CEFTRIAXONE SODIUM INJECTION CPT-4: J0696 11/21/2012 THER/PROPH/DIAG INJ SC/IM CPT-4: 03113 11/21/2012 THER/PROPH/DIAG INJ SC/IM CPT-4: 44934 10/14/2012 METHYLPREDNISOLONE 40 MG INJ CPT-4: J1030 10/14/2012 TRIAMCINOLONE ACET INJ NOS CPT-4: J3301 10/14/2012 URINALYSIS NONAUTO W/O SCOPE CPT-4: 90141 09/27/2012 ROUTINE VENIPUNCTURE CPT-4: 92269 09/25/2012 ASSAY OF FREE THYROXINE CPT-4: 22252 09/25/2012 ASSAY THYROID STIM HORMONE CPT-4: 88851 09/25/2012 COMPREHEN METABOLIC PANEL CPT-4: 23598 09/25/2012 COMPLETE CBC W/AUTO DIFF WBC CPT-4: 69564 09/25/2012 C-REACTIVE PROTEIN CPT-4: 94074 09/25/2012 THER/PROPH/DIAG INJ SC/IM CPT-4: 83591 08/29/2012 METHYLPREDNISOLONE 40 MG INJ CPT-4: J1030 08/29/2012 TRIAMCINOLONE ACET INJ NOS CPT-4: J3301 08/29/2012 DESTRUCT PREMALG LESION (Cryosurgery) CPT-4: 41695 THER/PROPH/DIAG INJ SC/IM CPT-4: 65142 05/06/2012 METHYLPREDNISOLONE 40 MG INJ CPT-4: J1030 05/06/2012 TRIAMCINOLONE ACET INJ NOS CPT-4: J3301 05/06/2012 VITAMIN B 12 FOLIC ACID CPT-4: 33302|21913 05/06/2012 RBC SED RATE AUTOMATED CPT-4: 02770 05/06/2012 ROUTINE VENIPUNCTURE CPT-4: 10563 05/06/2012 ASSAY OF FREE THYROXINE CPT-4: 82259 05/06/2012 ASSAY THYROID STIM HORMONE CPT-4: 92922 05/06/2012 COMPREHEN METABOLIC PANEL CPT-4: 15298 05/06/2012 COMPLETE CBC W/AUTO DIFF WBC CPT-4: 33751 05/06/2012 ASSAY OF BLOOD/URIC ACID CPT-4: 58758 05/06/2012 THER/PROPH/DIAG INJ SC/IM CPT-4: 81863 03/19/2012 KETOROLAC TROMETHAMINE INJ CPT-4: J1885 03/19/2012 KETOROLAC TROMETHAMINE INJ CPT-4: J1885 01/30/2012 THER/PROPH/DIAG INJ SC/IM CPT-4: 08648 01/30/2012 PROMETHAZINE HCL INJECTION CPT-4: J2550 01/30/2012 THER/PROPH/DIAG INJ SC/IM CPT-4: 22176 01/24/2012 METHYLPREDNISOLONE 40 MG INJ CPT-4: J1030 01/24/2012 TRIAMCINOLONE ACET INJ NOS CPT-4: J3301 01/24/2012 THER/PROPH/DIAG INJ SC/IM CPT-4: 58982 09/13/2011 KETOROLAC TROMETHAMINE INJ CPT-4: J1885 09/13/2011 THER/PROPH/DIAG INJ SC/IM CPT-4: 16857 09/13/2011 PROMETHAZINE HCL INJECTION CPT-4: J2550 09/13/2011 CEFTRIAXONE SODIUM INJECTION CPT-4: J0696 07/20/2011 THER/PROPH/DIAG INJ SC/IM CPT-4: 51606 07/20/2011 THER/PROPH/DIAG INJ SC/IM CPT-4: 89022 07/20/2011 METHYLPREDNISOLONE INJECTION CPT-4: J2930 07/20/2011 URINALYSIS NONAUTO W/O SCOPE CPT-4: 09440 05/09/2011 CEFTRIAXONE SODIUM INJECTION CPT-4: J0696 05/09/2011 THER/PROPH/DIAG INJ SC/IM CPT-4: 02662 05/09/2011 THER/PROPH/DIAG INJ SC/IM CPT-4: 48801 05/09/2011 PROMETHAZINE HCL INJECTION CPT-4: J2550 05/09/2011 HYDRATION IV INFUSION INIT CPT-4: 11789 05/09/2011 DESTRUCT PREMALG LESION (Cryosurgery) CPT-4: 68214 DESTRUCT PREMALG LES 2-14 CPT-4: 30130 07/19/2010 REMOVAL OF SKIN TAGS <W/15 CPT-4: 46932 05/30/2010 THER/PROPH/DIAG INJ SC/IM CPT-4: 56773 04/05/2010 CEFTRIAXONE SODIUM INJECTION CPT-4: J0696 04/05/2010 TRIAMCINOLONE ACET INJ NOS CPT-4: J3301 04/05/2010 METHYLPREDNISOLONE 40 MG INJ CPT-4: J1030 04/05/2010 THER/PROPH/DIAG INJ SC/IM CPT-4: 55178 04/05/2010 TRIAMCINOLONE ACET INJ NOS CPT-4: J3301 03/09/2010 METHYLPREDNISOLONE 40 MG INJ CPT-4: J1030 03/09/2010 THER/PROPH/DIAG INJ SC/IM CPT-4: 92946 03/09/2010 THER/PROPH/DIAG INJ SC/IM CPT-4: 89592 03/09/2010 CEFTRIAXONE SODIUM INJECTION CPT-4: J0696 03/09/2010 [...] 1: 132/80 Code: 8480-6 BMI: 35.8 Code: 29489-2 Heart Rate 1: 88 bpm Height: 5'4" Respiratory Rate: 20 bpm SpO2: 95% Tempera ture: 36.9 (C) / 98.5 (F) Weight: 210 lbs 05/28/2019 Blood Pressure 1: 126/82 Code: 8480-6 BMI: 35.0 Code: 83099-1 Heart Rate 1: 88 bpm Height: 5'4" [...] 1: 128/90 Code: 8480-6 BMI: 37.2 Code: 82729-4 Heart Rate 1: 84 bpm Height: 5'4" Respiratory Rate: 20 bpm SpO2: 95% Tempera ture: 36.6 (C) / 97.8 (F) Weight: 217 lbs 08/27/2018 Blood Pressure 1: 128/88 Code: 8480-6 BMI: 38.3 Code: 96379-6 Heart Rate 1: 84 bpm Height: 5'4" [...] 1: 119/72 Code: 8480-6 BMI: 37.4 Code: 38493-3 Heart Rate 1: 82 bpm Height: 5'4" Respiratory Rate: 12 bpm SpO2: 94% Tempera ture: 35.2 (C) / 95.4 (F) Weight: 218 lbs 12/18/2017 Blood Pressure 1: 128/86 Code: 8480-6 BMI: 37.8 Code: 12254-8 Heart Rate 1: 84 bpm Height: 5'4" [...] 1: 128/82 Code: 8480-6 BMI: 35.5 Code: 10595-4 Heart Rate 1: 84 bpm Height: 5'4" [...] 1: 128/82 Code: 8480-6 BMI: 30.2 Code: 08187-1 Heart Rate 1: 80 bpm Height: 5'4" [...] 1: 128/86 Code: 8480-6 BMI: 32.8 Code: 24562-3 Heart Rate 1: 66 bpm Height: 5'4" Respiratory Rate: 18 bpm Temperature: 36 .3 (C) / 97.3 (F) Weight: 191 lbs 06/23/2013 Blood Pressure 1: 132/94 Code: 8480-6 BMI: 34.0 Code: 52540-4 Heart Rate 1: 84 bpm Height: 5'4" Respiratory Rate: 20 bpm Temperature: 36 .8 (C) / 98.2 (F) Weight: 198 lbs 05/26/2013 Blood Pressure 1: 114/80 Code: 8480-6 BMI: 35.0 Code: 87130-5 Heart Rate 1: 80 bpm Height: 5'4" Respiratory Rate: 20 bpm Temperature: 36 .4 (C) / 97.6 (F) Weight: 204 lbs 04/16/2013 Blood Pressure 1: 114/82 Code: 8480-6 BMI: 36.7 Code: 43526-1 Heart Rate 1: 84 bpm Height: 5'4" Respiratory Rate: 20 bpm Temperature: 36 .7 (C) / 98.0 (F) Weight: 214 lbs 03/05/2013 Blood Pressure 1: 136/90 Code: 8480-6 BMI: 37.1 Code: 07719-7 Heart Rate 1: 84 bpm Height: 5'4" [...] 1: 168/114 Code: 8480-6 BMI: 36.2 Code: 58885-6 Heart Rate 1: 104 bpm Height: 5'4" Respiratory Rate: 20 bpm Temperature: 36 .8 (C) / 98.2 (F) Weight: 211 lbs 11/22/2012 Blood Pressure 1: 128/90 Code: 8480-6 Heart Rate 1: 88 bpm Respiratory Rate: 20 bpm SpO2: 96% Temperature: 36.8 (C) / 98.2 (F) 11/21/2012 Blood Pressure 1: 146/100 Code: 8480-6 BMI: 35.7 Code: 76857-5 Heart Rate 1: 96 bpm Height: 5'4" [...] 1: 138/100 Code: 8480-6 BMI: 35.7 Code: 97056-9 Heart Rate 1: 96 bpm Height: 5'4" Respiratory Rate: 20 bpm Temperature: 36 .8 (C) / 98.2 (F) Weight: 208 lbs 05/06/2012 Blood Pressure 1: 154/102 Code: 8480-6 BMI: 34.7 Code: 05922-0 Heart Rate 1: 116 bpm Height: 5'4" Respiratory Rate: 20 bpm Temperature: 36 .8 (C) / 98.2 (F) Weight: 202 lbs 04/03/2012 Blood Pressure 1: 134/94 Code: 8480-6 BMI: 34.8 Code: 58405-3 Heart Rate 1: 108 bpm Height: 5'4" Respiratory Rate: 20 bpm Temperature: 36 .8 (C) / 98.2 (F) Weight: 203 lbs 03/19/2012 Blood Pressure 1: 148/106 Code: 8480-6 BMI: 35.0 Code: 86493-9 Heart Rate 1: 100 bpm Height: 5'4" Respiratory Rate: 20 bpm Temperature: 36 .6 (C) / 97.9 (F) Weight: 204 lbs 02/22/2012 Blood Pressure 1: 146/94 Code: 8480-6 He art Rate 1: 88 bpm 02/21/2012 Blood Pressure 1: 172/120 Code: 8480-6 B lood Pressure 2: 152/106 Code: 8480-6 Heart Rate 1: 116 bpm 02/20/2012 Blood Pressure 1: 160/100 Code: 8480-6 BMI: 32.0 Code: 15225-7 Heart Rate 1: 84 bpm Height: 5'7" Temperature: 36.5 (C) / 97.7 (F) Weight: 204 lbs 01/30/2012 Blood Pressure 1: 152/110 Code: 8480-6 BMI: 32.0 Code: 84903-1 Heart Rate 1: 116 bpm Height: 5'7" Respiratory Rate: 20 bpm Temperature: 37 .0 (C) / 98.6 (F) Weight: 204 lbs 01/24/2012 Blood Pressure 1: 146/100 Code: 8480-6 BMI: 32.0 Code: 47563-9 Heart Rate 1: 100 bpm Height: 5'7" Respiratory Rate: 20 bpm Temperature: 36 .7 (C) / 98.0 (F) Weight: 204 lbs 01/10/2012 Blood Pressure 1: 156/94 Code: 8480-6 BMI: 32.6 Code: 71040-4 Heart Rate 1: 72 bpm Height: 5'7" Respiratory Rate: 20 bpm Temperature: 36 .8 (C) / 98.2 (F) Weight: 208 lbs 12/11/2011 Blood Pressure 1: 146/100 Code: 8480-6 Heart Rat e 1: 116 bpm Height: 5'7" Respiratory Rate: 20 bpm Temperature: 36.9 (C) / 98.4 (F) We ight: 11/09/2011 Blood Pressure 1: 148/96 Code: 8480-6 BMI: 32.1 Code: 00801-3 Heart Rate 1: 116 bpm Height: 5'7" Respiratory Rate: 20 bpm Temperature: 36 .7 (C) / 98.0 (F) Weight: 205 lbs 09/13/2011 Blood Pressure 1: 126/88 Code: 8480-6 Heart Rate 1: 88 bpm Height: 5'7" Respiratory Rate: 20 bpm Temperature: 36.9 (C) / 98.4 (F) We ight: 08/31/2011 Blood Pressure 1: 118/82 Code: 8480-6 BMI: 32.0 Code: 62260-3 Heart Rate 1: 80 bpm Height: 5'7" Temperature: 36.4 (C) / 97.6 (F) Weight: 204 lbs 07/06/2011 Blood Pressure 1: 128/86 Code: 8480-6 BMI: 30.9 Code: 40345-0 Heart Rate 1: 92 bpm Height: 5'7" Respiratory Rate: 20 bpm Temperature: 36 .9 (C) / 98.4 (F) Weight: 197 lbs 06/06/2011 Blood Pressure 1: 112/74 Code: 8480-6 BMI: 31.0 Code: 48696-7 Heart Rate 1: 72 bpm Height: 5'7" [...] 1: 128/92 Code: 8480-6 BMI: 33.6 Code: 49823-1 Heart Rate 1: 104 bpm Height: 5'4" [...] TDAP mole check 01/13/2014 patient stopped taki jada trazadone back pain 12/24/2013 otalgia 11/12/2013 Needs [...] headache 01/30/2012 edema 01/24/2012 Currently just francesco velez Triam/HCTZ shoulder pain 01/10/2012 thinks these [...] Check-up Encounters Encounter Performer Location Codes Date ([id number]) OFFICE/OUTPATIENT VISIT EST Diagnosis: Blister (nonthermal), right foot, initial encounter[ICD10: S90.821A] Diagnosis: Type 2 diabetes mellitus with hyperglycemia[ICD10: E11.65] Diagnosis: Lower extremity edema[ICD10: R60.0] Kathleen APPIAH [employer] CPT-4: 00367 02/12/2020 ([id number]) OFFICE/OUTPATIENT VISIT EST Diagnosis: Essential (primary) hypertension[ICD10: I10] Diagnosis: Type 2 diabetes mellitus with hyperglycemia[ICD10: E11.65] Diagnosis: Allergic rhinitis[ICD10: J30.9] María Elena Waydawn MARÍA ELENA Fabiola APPIAH [employer] CPT-4: 52249 01/13/2020 ([id number]) OFFICE/OUTPATIENT VISIT EST Diagnosis: Type 2 diabetes mellitus with hyperglycemia[ICD10: E11.65] María Elena Seamusdawn MARÍA ELENA Fabiola APPIAH [employer] CPT-4: 59387 11/20/2019 ([id number]) OFFICE/OUTPATIENT VISIT EST Diagnosis: Ingrowing nail[ICD10: L60.0] Diagnosis: Type 2 diabetes mellitus with hyperglycemia[ICD10: E11.65] Kathleen LELISLINE Fabiola APPIAH [employer] CPT-4: 80834 10/07/2019 ([id number]) OFFICE/OUTPATIENT VISIT EST Diagnosis: DM w/o complication type II, uncontrolled[ICD10: E11.65] Diagnosis: Hypertriglyceridemia[ICD10: E78.1] Diagnosis: Essential hypertension[ICD10: I10] María Elena JEAN [facility] CPT-4: 40733 09/30/2019 ([id number]) NURSE/OUTPATIENT VISIT EST Diagnosis: Essential (primary) hypertension[ICD10: I10] Diagnosis: Cervicalgia[ICD10: M54.2] Diagnosis: Hyperglycemia, unspecified[ICD10: R73.9] Diagnosis: Mixed hyperlipidemia[ICD10: E78.2] María Elena JEAN [facility] CPT-4: 25595 09/29/2019 ([id number]) OFFICE/OUTPATIENT VISIT EST Diagnosis: Essential (primary) hypertension[ICD10: I10] Diagnosis: Fall from bed, sequela[ICD10: W06.XXXS] María Elena APPIAH DO [facility] CPT-4: 40739 05/28/2019 ([id number]) NURSE/OUTPATIENT VISIT EST Diagnosis: Essential (primary) hypertension[ICD10: I10] María Elena APPIAH DO [facility] CPT-4: 83535 05/19/2019 ([id number]) OFFICE/OUTPATIENT VISIT EST Diagnosis: Essential (primary) hypertension[ICD10: I10] Diagnosis: Type 2 diabetes mellitus with hyperglycemia[ICD10: E11.65] Diagnosis: Intervertebral disc disorders with radiculopathy, 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] Diagnosis: Hormone replacement therapy[ICD10: Z79.890] María Elena APPIAH DO [facility] CPT-4: 07239 01/22/2019 ([id number]) OFFICE/OUTPATIENT VISIT EST Diagnosis: Essential (primary) hypertension[ICD10: I10] Diagnosis: Type 2 diabetes mellitus with hyperglycemia[ICD10: E11.65] María Elena APPIAH [facility] CPT-4: 62411 09/30/2018 ([id number]) OFFICE/OUTPATIENT VISIT EST Diagnosis: Pain in left elbow[ICD10: M25.522] Diagnosis: Acute stress reaction[ICD10: F43.0] Diagnosis: Primary insomnia[ICD10: F51.01] Diagnosis: Abnormal weight gain[ICD10: R63.5] María Elena APPIAH [facility] CPT-4: 01620 08/27/2018 ([id number]) OFFICE/OUTPATIENT VISIT EST Diagnosis: Acute recurrent sinusitis, unspecified[ICD10: J01.91] Diagnosis: Follicular disorder, unspecified[ICD10: L73.9] Diagnosis: Tinea corporis[ICD10: B35.4] María Elena APPIAH DO [facility] CPT-4: 22856 08/09/2018 ([id number]) OFFICE/OUTPATIENT VISIT EST Diagnosis: Tinea corporis[ICD10: B35.4] Diagnosis: Anxiety disorder, unspecified[ICD10: F41.9] Diagnosis: Menopausal and female climacteric states[ICD10: N95.1] María Elena APPIAH DO [facility] CPT-4: 20838 07/22/2018 ([id number]) NURSE/OUTPATIENT VISIT EST Diagnosis: Cellulitis of right toe[ICD10: L03.031] María Elena APPIAH DO [facility] CPT-4: 80472 06/19/2018 ([id number]) OFFICE/OUTPATIENT VISIT EST Diagnosis: Cellulitis of right toe[ICD10: L03.031] Kathleen APPIAH DO [facility] CPT-4: 21579 06/17/2018 ([id number]) OFFICE/OUTPATIENT VISIT EST Diagnosis: Migraine without aura, intractable, without status migrainosus[ICD10: G43.019] Diagnosis: Zoster without complications[ICD10: B02.9] Kathleen APPIAH DO [facility] CPT-4: 96187 05/16/2018 ([id number]) OFFICE/OUTPATIENT VISIT EST Diagnosis: Cellulitis of right lower limb[ICD10: L03.115] Kathleen APPIAH DO [facility] CPT-4: 47139 03/20/2018 ([id number]) OFFICE/OUTPATIENT VISIT EST Diagnosis: Cellulitis of right lower limb[ICD10: L03.115] Kathleen APPIAH DO [facility] CPT-4: 16305 03/18/2018 ([id number]) OFFICE/OUTPATIENT VISIT EST Diagnosis: Cellulitis of right lower limb[ICD10: L03.115] Kathleen APPIAH DO [facility] CPT-4: 02923 03/15/2018 ([id number]) OFFICE/OUTPATIENT VISIT EST Diagnosis: Acute sinusitis, unspecified[ICD10: J01.90] Kathleen APPIAH DO [facility] CPT-4: 92506 02/11/2018 ([id number]) NURSE/OUTPATIENT VISIT EST Diagnosis: Otitis media, unspecified, right ear[ICD10: H66.91] María Elena APPIAH DO [facility] CPT-4: 41779 02/01/2018 ([id number]) OFFICE/OUTPATIENT VISIT EST Diagnosis: Acute suppurative otitis media without spontaneous rupture of ear drum, left ear[ICD10: H66.002] Diagnosis: Abnormal weight gain[ICD10: R63.5] Diagnosis: Intervertebral disc disorders with radiculopathy, 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] Kathleen APPIAH DO [facility] CPT-4: 99 214 01/30/2018 ([id number]) PREV VISIT EST AGE 40-64 Diagnosis: Encounter for general adult medical examination without abnormal findings[ICD10: Z00.00] Diagnosis: Essential (primary) hypertension[ICD10: I10] Diagnosis: Mixed hyperlipidemia[ICD10: E78.2] Diagnosis: Type 2 diabetes mellitus with hyperglycemia[ICD10: E11.65] Diagnosis: 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] María Elena APPIAH [employer] [facility] CPT-4: 00386 12/18/2017 ([id number]) OFFICE/OUTPATIENT VISIT EST Diagnosis: Cellulitis of right toe[ICD10: L03.031] Diagnosis: Mixed hyperlipidemia[ICD10: E78.2] Diagnosis: Essential (primary) hypertension[ICD10: I10] Diagnosis: Hyperglycemia, unspecified[ICD10: R73.9] Diagnosis: Nontoxic goiter, 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] María Elena [employer] MARÍA ELENA APPIAH [employer] [facility] CPT-4: 84360 12/10/2017 ([id number]) OFFICE/OUTPATIENT VISIT EST Diagnosis: Cellulitis of right toe[ICD10: L03.031] Diagnosis: Acute sinusitis, unspecified[ICD10: J01.90] Kathleen APPIAH DO [facility] CPT-4: 91936 12/07/2017 OFFICE/OUTPATIENT VISIT EST Diagnosis: Acute maxillary sinusitis, unspecified[ICD10: J01.00] Kathleen APPIAH DO [facility] CPT-4: 45610 10/08/2017 ([id number]) OFFICE/OUTPATIENT VISIT EST Diagnosis: Cellulitis of left toe[ICD10: L03.032] María Elena MARIN Fabiola APPIAH [employer] [facility] CPT-4: 57750 09/21/2017 ([id number]) OFFICE/OUTPATIENT VISIT EST Diagnosis: Insomnia, unspecified[ICD10: G47.00] Diagnosis: Major depressive disorder, single episode, unspecified[ICD10: F32.9] Diagnosis: Anxiety disorder, unspecified[ICD10: F41.9] Diagnosis: Cellulitis of left toe[ICD10: L03.032] Diagnosis: Snoring[ICD10: R06.83] Kathleen APPIAH DO [facility] CPT-4: 83171 09/20/2017 ([id number]) OFFICE/OUTPATIENT VISIT EST Diagnosis: Cellulitis of left toe[ICD10: L03.032] María Elena Seamusdawn MONTEROLui CulverJARED Fabiola APPIAH [facility] CPT-4: 80138 07/19/2017 OFFICE/OUTPATIENT VISIT EST Diagnosis: Chronic sinusitis, unspecified[ICD10: J32.9] Diagnosis: Generalized hyperhidrosis[ICD10: R61] Kathleen APPIAH [facility] CPT-4: 96870 06/27/2017 ([id number]) OFFICE/OUTPATIENT VISIT EST Diagnosis: Intervertebral disc disorders with radiculopathy, 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] Diagnosis: Primary insomnia[ICD10: F51.01] Diagnosis: Other fatigue[ICD10: R53.83] María Elena ELLISLINE AlanJj TD [facility] CPT-4: 53326 04/10/2017 ([id number]) OFFICE/OUTPATIENT VISIT EST Diagnosis: Primary insomnia[ICD10: F51.01] Diagnosis: Localized edema[ICD10: R60.0] Diagnosis: 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] María Elena APPIAH DO [facility] CPT-4: 49384 12/13/2016 ([id number]) OFFICE/OUTPATIENT VISIT EST Diagnosis: Primary insomnia[ICD10: F51.01] Diagnosis: Cyanosis[ICD10: R23.0] María Elena JUARES AlanJj CIRO Bazzi [facility] CPT-4: 42128 11/01/2016 ([id number]) PREV VISIT EST AGE 40-64 Diagnosis: Encounter for gynecological examination (general) (routine) without abnormal findings[ICD10: Z01.419] Diagnosis: Encounter for routine child health examination without abnormal findings[ICD10: Z00.129] María Elena APPIAH [employer] CPT-4: 26602 10/17/2016 ([id number]) OFFICE/OUTPATIENT VISIT EST Diagnosis: Other seasonal allergic rhinitis[ICD10: J30.2] María Elena APPIAH DO [employer] CPT-4: 84938 10/10/2016 ([id number]) OFFICE/OUTPATIENT VISIT EST Diagnosis: Pain in left arm[ICD10: M79.602] Diagnosis: Contact with and (suspected) exposure to potentially hazardous body fluids[ICD10: Z77.21] Diagnosis: 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, 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] Diagnosis: Unspecified open wound, right foot, sequela[ICD10: S91.301S] María Elena APPIAH [employer] CPT-4: 04336 09/19/2016 ([id number]) OFFICE/OUTPATIENT VISIT EST Diagnosis: Chronic sinusitis, unspecified[ICD10: J32.9] Diagnosis: Allergic rhinitis due to pollen[ICD10: J30.1] María Elena APPIAH [employer] CPT-4: 76751 08/24/2016 ([id number]) OFFICE/OUTPATIENT VISIT EST Diagnosis: Acute bronchitis, unspecified[ICD10: J20.9] María Elena APPIAH [employer] CPT-4: 08232 08/16/2016 ([id number]) OFFICE/OUTPATIENT VISIT EST Diagnosis: Otitis media, unspecified, right ear[ICD10: H66.91] Diagnosis: Acute bronchitis, unspecified[ICD10: J20.9] María Elena APPIAH [employer] CPT-4: 12654 08/10/2016 ([id number]) OFFICE/OUTPATIENT VISIT EST Diagnosis: Acute recurrent sinusitis, unspecified[ICD10: J01.91] Diagnosis: Allergic rhinitis due to pollen[ICD10: J30.1] María Elena APPIAH [employer] CPT-4: 05796 08/02/2016 ([id number]) OFFICE/OUTPATIENT VISIT EST Diagnosis: Pain in unspecified joint[ICD10: M25.50] María Elena APPIAH [facility] CPT-4: 39683 07/27/2016 OFFICE/OUTPATIENT VISIT EST Diagnosis: 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] Diagnosis: Acute recurrent sinusitis, unspecified[ICD10: J01.91] Diagnosis: Other fatigue[ICD10: R53.83] Diagnosis: Primary insomnia[ICD10: F51.01] Diagnosis: Pain in unspecified joint[ICD10: M25.50] María Elena APPIAH [employer] CPT-4: 09708 07/20/2016 ([id number]) OFFICE/OUTPATIENT VISIT EST Diagnosis: Blister (nonthermal), left great toe, initial encounter[ICD10: S90.422A] Loan ELLISLINE Fabiola APPIAH [facility] CPT-4: 92048 ([id number]) OFFICE/OUTPATIENT VISIT EST Diagnosis: Acute recurrent sinusitis, unspecified[ICD10: J01.91] María Elena APPIAH [employer] CPT-4: 00297 05/25/2016 ([id number]) OFFICE/OUTPATIENT VISIT EST Diagnosis: Acute sinusitis, unspecified[ICD10: J01.90] María Elena APPIAH DO [facility] CPT-4: 30875 04/26/2016 ([id number]) OFFICE/OUTPATIENT VISIT EST Diagnosis: Flushing[ICD10: R23.2] Diagnosis: Primary insomnia[ICD10: F51.01] María Elena Td APPIAH [employer] CPT-4: 11389 03/02/2016 ([id number]) OFFICE/OUTPATIENT VISIT EST Diagnosis: Other seasonal allergic rhinitis[ICD10: J30.2] Loan Gonzalo JUARES Fabiola APPIAH [employer] CPT-4: 36799 02/09/2016 ([id number]) OFFICE/OUTPATIENT VISIT EST Diagnosis: Primary insomnia[ICD10: F51.01] Diagnosis: Urinary tract infection, site not specified[ICD10: N39.0] María Elena APPIAH DO [facility] CPT-4: 58708 01/24/2016 ([id number]) OFFICE/OUTPATIENT VISIT EST Diagnosis: Other specified disorders of Eustachian tube, bilateral[ICD10: H69.83] Diagnosis: Allergic rhinitis, unspecified[ICD10: J30.9] Loan APPIAH DO [facility] CPT-4: 32336 12/23/2015 ([id number]) OFFICE/OUTPATIENT VISIT EST Diagnosis: Acute recurrent sinusitis, unspecified[ICD10: J01.91] Diagnosis: 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] Diagnosis: Allergic rhinitis, unspecified[ICD10: J30.9] María Elena APPIAH DO [facility] CPT-4: 62073 12/08/2015 ([id number]) OFFICE/OUTPATIENT VISIT EST Diagnosis: Allergic rhinitis, unspecified[ICD10: J30.9] Diagnosis: Pain in unspecified joint[ICD10: M25.50] María Elena APPIAH [facility] CPT-4: 35130 10/07/2015 ([id number]) OFFICE/OUTPATIENT VISIT EST Diagnosis: Essential (primary) hypertension[ICD10: I10] María Elena APPIAH DO [facility] CPT-4: 94132 10/06/2015 OFFICE/OUTPATIENT VISIT EST Diagnosis: Localized enlarged lymph nodes[ICD10: R59.0] Diagnosis: Local infection of the skin and subcutaneous tissue, unspecified[ICD10: L08.9] June Washingtongurmeetfatimah MARÍA ELENA APPIAH DO [facility] CPT- 4: 06726 09/14/2015 ([id number]) OFFICE/OUTPATIENT VISIT EST Diagnosis: Essential (primary) hypertension[ICD10: I10] Diagnosis: Actinic keratosis[ICD10: L57.0] María Elena APPIAH DO [facility] CPT-4: 63140 09/07/2015 ([id number]) OFFICE/OUTPATIENT VISIT EST Diagnosis: Essential (primary) hypertension[ICD10: I10] Diagnosis: Acute stress reaction[ICD10: F43.0] María Elena APPIAH DO [facility] CPT-4: 27649 08/18/2015 ([id number]) OFFICE/OUTPATIENT VISIT EST Diagnosis: Essential (primary) hypertension[ICD10: I10] María Elena APPIAH DO [facility] CPT-4: 94323 07/07/2015 ([id number]) OFFICE/OUTPATIENT VISIT EST Diagnosis: Essential (primary) hypertension[ICD10: I10] María Elena APPIAH DO [facility] CPT-4: 72956 06/24/2015 ([id number]) OFFICE/OUTPATIENT VISIT EST Diagnosis: Essential (primary) hypertension[ICD10: I10] María Elena APPIAH DO [facility] CPT-4: 39765 06/21/2015 ([id number]) OFFICE/OUTPATIENT VISIT EST Diagnosis: Essential (primary) hypertension[ICD10: I10] Diagnosis: Mixed hyperlipidemia[ICD10: E78.2] Diagnosis: Acute stress reaction[ICD10: F43.0] Diagnosis: Primary insomnia[ICD10: F51.01] María Elena APPIAH DO [facility] CPT-4: 92474 06/16/2015 ([id number]) OFFICE/OUTPATIENT VISIT EST Diagnosis: INSOMNIA NOS[ICD9: 780.52] Diagnosis: HYPERTENSION[ICD9: 401.9] Diagnosis: Stress reaction[ICD9: 308.9] María Elena APPIAH DO [facility] CPT-4: 32859 06/02/2015 ([id number]) OFFICE/OUTPATIENT VISIT EST Diagnosis: HYPERTENSION[ICD9: 401.9] Diagnosis: Stress reaction[ICD9: 308.9] María Elena APPIAH DO [facility] CPT-4: 41539 05/20/2015 ([id number]) OFFICE/OUTPATIENT VISIT EST Diagnosis: Skin lesion[ICD9: 709.9] 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] María Elena APPIAH DO [facility] CPT-4: 52487 05/10/2015 ([id number]) OFFICE/OUTPATIENT VISIT EST Diagnosis: SINUSITIS, ACUTE[ICD9: 461.9] Diagnosis: ALLERGIC RHINITIS[ICD9: 477.9] Diagnosis: DERMATITIS NOS[ICD9: 692.9] María Elena REHMAN [facility] CPT-4: 73813 03/16/2015 OFFICE/OUTPATIENT VISIT EST Diagnosis: Otitis media[ICD9: 382.9] Diagnosis: SINUSITIS, ACUTE[ICD9: 461.9] June APPIAH [facility] CPT-4: 78235 09/11/2014 ([id number]) OFFICE/OUTPATIENT VISIT EST Diagnosis: HYPERLIPIDEMIA NEC/NOS[ICD9: 272.4] María Elena APPIAH [facility] CPT-4: 00970 08/31/2014 ([id number]) OFFICE/OUTPATIENT VISIT EST Diagnosis: - I - HYPERTENSION[ICD9: 401.9] Diagnosis: HYPERLIPIDEMIA NEC/NOS[ICD9: 272.4] María [facility] CPT-4: 60663 08/27/2014 ([id number]) OFFICE/OUTPATIENT VISIT EST Diagnosis: ABDOMINAL PAIN[ICD9: 789.00] Diagnosis: DYSPEPSIA[ICD9: 536.8] Diagnosis: Thoracic back pain[ICD9: 724.1] María Elena APPIAH [facility] CPT-4: 10980 07/21/2014 ([id number]) OFFICE/OUTPATIENT VISIT EST Diagnosis: ALLERGIC RHINITIS[ICD9: 477.9] María Elena APPIAH [facility] CPT-4: 96575 07/15/2014 ([id number]) OFFICE/OUTPATIENT VISIT EST Diagnosis: EDEMA[ICD9: 782.3] Diagnosis: Chronic insomnia[ICD9: 780.52] María Elena APPIAH [facility] CPT-4: 24899 05/18/2014 ([id number]) OFFICE/OUTPATIENT VISIT EST Diagnosis: Thyromegaly[ICD9: 240.9] Diagnosis: - I - HYPERTENSION[ICD9: 401.9] Diagnosis: ROUTINE MEDICAL EXAM[ICD9: V70.0] Diagnosis: EDEMA[ICD9: 782.3] María Elena APPIAH [facility] CPT-4: 54647 05/14/2014 OFFICE/OUTPATIENT VISIT EST Diagnosis: BRONCHITIS, ACUTE[ICD9: 466.0] Diagnosis: SINUSITIS, ACUTE[ICD9: 461.9] María Elena APPIAH [facility] CPT-4: 31768 04/21/2014 OFFICE/OUTPATIENT VISIT EST Diagnosis: SINUSITIS, ACUTE[ICD9: 461.9] June Sandra APPIAH [facility] CPT-4: 40039 03/04/2014 ([id number]) OFFICE/OUTPATIENT VISIT EST Diagnosis: VACCINE FOR TDAP[ICD10: Z23] María Elena APPIAH [facility] CPT-4: 17517 02/27/2014 ([id number]) OFFICE/OUTPATIENT VISIT EST Diagnosis: Seborrheic keratoses, inflamed[ICD9: 702.11] Diagnosis: ACTINIC KERATOSIS[ICD9: 702.0] Diagnosis: INSOMNIA NOS[ICD9: 780.52] María Elena PANDYA [facility] CPT-4: 77044 01/13/2014 OFFICE/OUTPATIENT VISIT EST 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] Diagnosis: ALLERGIC RHINITIS[ICD9: 477.9] Diagnosis: Serous otitis media[ICD9: 381.4] María Elena APPIAH [facility] CPT-4: 23995 12/24/2013 ([id number]) OFFICE/OUTPATIENT VISIT EST Diagnosis: SINUSITIS, ACUTE[ICD9: 461.9] Diagnosis: ALLERGIC RHINITIS[ICD9: 477.9] 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] María Elena APPIAH [facility] CPT-4: 79409 11/12/2013 ([id number]) OFFICE/OUTPATIENT VISIT EST Diagnosis: ALLERGIC RHINITIS[ICD9: 477.9] Diagnosis: SINUSITIS, ACUTE[ICD9: 461.9] María Elena APPIAH [facility] CPT-4: 84078 10/21/2013 ([id number]) OFFICE/OUTPATIENT VISIT EST Diagnosis: ASYMPTOMATIC VARICOSE VEINS[ICD9: 454.9] Diagnosis: INSOMNIA NOS[ICD9: 780.52] María Elena PANDYA [facility] CPT-4: 29274 09/22/2013 OFFICE/OUTPATIENT VISIT EST Diagnosis: SINUSITIS, ACUTE[ICD9: 461.9] Junesa Sandra APPIAH DO [facility] CPT-4: 03039 08/27/2013 ([id number]) OFFICE/OUTPATIENT VISIT EST Diagnosis: CEPHALGIA[ICD9: 784.0] Diagnosis: CEPHALGIA, TENSION[ICD9: 307.81] 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] María Elena APPIAH DO [facility] CPT-4: 10565 08/04/2013 ([id number]) OFFICE/OUTPATIENT VISIT EST Diagnosis: Cervicalgia[ICD9: 723.1] Diagnosis: SPASM OF MUSCLE[ICD9: 728.85] Diagnosis: CEPHALGIA, TENSION[ICD9: 307.81] María Elena APPIAH DO [facility] CPT-4: 97247 07/23/2013 ([id number]) OFFICE/OUTPATIENT VISIT EST 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] Diagnosis: ALLERGIC RHINITIS[ICD9: 477.9] María Elena APPIAH DO [facility] CPT-4: 37238 06/23/2013 ([id number]) OFFICE/OUTPATIENT VISIT EST Diagnosis: ALLERGIC RHINITIS[ICD9: 477.9] Diagnosis: ACUTE SEROUS OTITIS MEDIA[ICD9: 381.01] 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] María Elena APPIAH DO [facility] CPT-4: 89022 05/26/2013 ([id number]) OFFICE/OUTPATIENT VISIT EST Diagnosis: HYPERTENSION[ICD9: 401.9] Diagnosis: EDEMA[ICD9: 782.3] Diagnosis: Serous otitis media[ICD9: 381.4] María Elena APPIAH DO [facility] CPT-4: 57363 04/16/2013 ([id number]) OFFICE/OUTPATIENT VISIT EST Diagnosis: SINUSITIS, ACUTE[ICD9: 461.9] Diagnosis: ALLERGIC RHINITIS[ICD9: 477.9] Diagnosis: EDEMA[ICD9: 782.3] Diagnosis: Thyromegaly[ICD9: 240.9] Diagnosis: MALAISE AND FATIGUE[ICD9: 780.79] María Elena Lopez Fabiola ORTA [employer] CPT-4: 55450 03/05/2013 ([id number]) OFFICE/OUTPATIENT VISIT EST Diagnosis: PAIN, LOWER BACK[ICD9: 724.2] Diagnosis: SPASM OF MUSCLE[ICD9: 728.85] María Elena JUARES AlanJj MARIVEL [employer] CPT-4: 74407 12/23/2012 OFFICE/OUTPATIENT VISIT EST Diagnosis: Low back pain[ICD9: 724.2] Lashawn Hicks KRISTYN [facility] [employer] CPT-4: 80416 12/16/2012 ([id number]) OFFICE/OUTPATIENT VISIT EST Diagnosis: PAIN, LOWER BACK[ICD9: 724.2] Diagnosis: SCIATICA[ICD9: 724.3] Diagnosis: Lumbar herniated disc[ICD9: 722.10] María Elena COLON Fabiola [address] [employer] CPT-4: 96225 12/09/2012 ([id number]) OFFICE/OUTPATIENT VISIT EST Diagnosis: PAIN, LOWER BACK[ICD9: 724.2] Diagnosis: SCIATICA[ICD9: 724.3] Diagnosis: LUMBAR DISC DISPLACEMENT[ICD9: 722.10] María Elena MARIN [facility]Jj [facility] CPT-4: 16283 12/04/2012 OFFICE/OUTPATIENT VISIT EST Diagnosis: Pneumonia[ICD9: 486] Mary JUARES AlanJj MARIVEL [employer] CPT-4: 15150 11/22/2012 ([id number]) OFFICE/OUTPATIENT VISIT EST Diagnosis: PNEUMONIA, ORGANISM[ICD9: 486] Diagnosis: Exacerbation of RAD (reactive airway disease)[ICD9: 493.92] María Elena JUARES AlanJj [facility] [employer] CPT-4: 20015 11/21/2012 OFFICE/OUTPATIENT VISIT EST Diagnosis: HYPERTENSION[ICD9: 401.9] Diagnosis: Cephalgia[ICD9: 784.0] Lashawn Babar MARÍA ELENA APPIAH DO [facility] CPT-4: 41751 10/29/2012 ([id number]) OFFICE/OUTPATIENT VISIT EST Diagnosis: MALAISE AND FATIGUE[ICD9: 780.79] Diagnosis: ARTHRALGIA-MULTIPLE SITES[ICD9: 719.49] María Elenamarcella Appiah KYLAH BRAUNGAEL AlanJj TD GARIBAY [facility] CPT-4: 42356 10/14/2012 ([id number]) OFFICE/OUTPATIENT VISIT EST Diagnosis: URINARY FREQUENCY[ICD9: 788.41] María Elena Seamusdawn MARÍA ELENA AlanJj TD GARIBAY [facility] CPT-4: 24248 09/27/2012 ([id number]) OFFICE/OUTPATIENT VISIT EST Diagnosis: MALAISE AND FATIGUE[ICD9: 780.79] Diagnosis: ARTHRALGIA-MULTIPLE SITES[ICD9: 719.49] María Elenamarcella Appiah KYLAH BRAUNGAEL AlanJj TD GAR[facility]AY [facility] CPT-4: 05420 09/25/2012 ([id number]) OFFICE/OUTPATIENT VISIT EST Diagnosis: SINUSITIS, ACUTE[ICD9: 461.9] 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] María Elena Seamusmindimaryjane ELLISMARÍA ELENA AlanJj TD GARIBAY [facility] CPT-4: 80927 08/29/2012 OFFICE/OUTPATIENT VISIT EST Diagnosis: ACTINIC KERATOSIS[ICD9: 702.0] Diagnosis: Inflamed seborrheic keratosis[ICD9: 702.11] Diagnosis: Skin cancer of face[ICD9: 173.31] Diagnosis: HYPERTENSION[ICD9: 401.9] María Elena MONTEROQUELINE AlanJj SEAMUS NDERose Mary [facility] CPT-4: 90817 08/12/2012 ([id number]) OFFICE/OUTPATIENT VISIT EST Diagnosis: ARTHRALGIA-MULTIPLE SITES[ICD9: 719.49] Diagnosis: GOUT[ICD9: 274.9] Diagnosis: HYPERTENSION[ICD9: 401.9] Diagnosis: Tachycardia[ICD9: 785.0] María Elena JUARES AlanJj FRITZ REDDY [facility] CPT-4: 69118 05/06/2012 ([id number]) OFFICE/OUTPATIENT VISIT EST Diagnosis: INSOMNIA NOS[ICD9: 780.52] María Elena Ortaer MARÍA ELENA AlanJj OR MUMTAZ [facility] CPT-4: 03503 04/03/2012 ([id number]) OFFICE/OUTPATIENT VISIT EST Diagnosis: INSOMNIA NOS[ICD9: 780.52] Diagnosis: HYPERTENSION[ICD9: 401.9] Diagnosis: MIGRAINE NOS/NOT INTRCBL[ICD9: 346.90] María Elena CulverJARED ValdesJj SEAMUSNDER [facility] CPT-4: 00278 03/19/2012 ([id number]) OFFICE/OUTPATIENT VISIT EST Diagnosis: CELLULITIS[ICD9: 682.9] Diagnosis: Ankle pain[ICD9: 719.47] Diagnosis: HYPERTENSION[ICD9: 401.9] María Elena Seamusdawn JUARES AlanJj SEAMUS NDER [facility] CPT-4: 36643 02/20/2012 ([id number]) OFFICE/OUTPATIENT VISIT EST Diagnosis: MIGRAINE NOS/NOT INTRCBL[ICD9: 346.90] Diagnosis: Vomiting[ICD9: 787.03] María Elenamarcella JUARES AlanJj SEAMUSNDE R [facility] CPT-4: 03816 01/30/2012 ([id number]) OFFICE/OUTPATIENT VISIT EST Diagnosis: EDEMA[ICD9: 782.3] Diagnosis: HYPERTENSION[ICD9: 401.9] Diagnosis: ALLERGIC RHINITIS[ICD9: 477.9] Diagnosis: ARTHRALGIA-MULTIPLE SITES[ICD9: 719.49] María Elena Seamusdawn REED AlanJj MARIVEL [facility] CPT-4: 00573 01/24/2012 ([id number]) OFFICE/OUTPATIENT VISIT EST Diagnosis: SPASM OF MUSCLE[ICD9: 728.85] Diagnosis: Thoracic back pain[ICD9: 724.1] Diagnosis: Cervical pain[ICD9: 723.1] María Elena JUARES AlanJj [facility] CPT-4: 85244 01/10/2012 OFFICE/OUTPATIENT VISIT EST Diagnosis: PAIN, LOWER BACK[ICD9: 724.2] Diagnosis: LUMBAR DISC DISPLACEMENT[ICD9: 722.10] María Elena MARIN AlanJj SEAMUSNDER [employer] CPT-4: 31074 12/11/2011 OFFICE/OUTPATIENT VISIT EST Diagnosis: MIGRAINE NOS/NOT INTRCBL[ICD9: 346.90] Diagnosis: SINUSITIS, ACUTE[ICD9: 461.9] María Elena Hicks SEAMUSDAWN [facility] CPT-4: 19288 11/09/2011 OFFICE/OUTPATIENT VISIT EST Diagnosis: MIGRAINE NOS/NOT INTRCBL[ICD9: 346.90] Diagnosis: LYMPHADENOPATHY[ICD9: 785.6] María Elena Hicks SEAMUSDAWN [facility] CPT-4: 97789 09/13/2011 OFFICE/OUTPATIENT VISIT EST Diagnosis: MALAISE AND FATIGUE[ICD9: 780.79] Diagnosis: ARTHRALGIA-MULTIPLE SITES[ICD9: 719.49] María Elena Hicks SEAMUSDAWN [facility] CPT-4: 05431 08/31/2011 OFFICE/OUTPATIENT VISIT EST Diagnosis: SINUSITIS, ACUTE[ICD9: 461.9] María Elena APPIAH [facility] CPT-4: 61979 07/20/2011 OFFICE/OUTPATIENT VISIT EST Diagnosis: HYPERTENSION[ICD9: 401.9] Diagnosis: PAIN, LOWER BACK[ICD9: 724.2] Diagnosis: SPASM OF MUSCLE[ICD9: 728.85] María Elena Hicks SEAMUSDAWN [facility] CPT-4: 28201 07/06/2011 OFFICE/OUTPATIENT VISIT EST Diagnosis: MIGRAINE NOS/NOT INTRCBL[ICD9: 346.90] Diagnosis: HYPERTENSION[ICD9: 401.9] María Elena SEYMOUR [facility] CPT-4: 89045 05/22/2011 OFFICE/OUTPATIENT VISIT EST Diagnosis: SINUSITIS, ACUTE[ICD9: 461.9] Diagnosis: MIGRAINE NOS/NOT INTRCBL[ICD9: 346.90] Diagnosis: Dehydration[ICD9: 276.51] Diagnosis: Vomiting[ICD9: 787.03] María Elena Bazzi [facility] CPT-4: 26043 05/09/2011 ([id number]) OFFICE/OUTPATIENT VISIT EST María Elena APPIAH [facility] CPT-4: 58221 02/14/2011 ([id number]) OFFICE/OUTPATIENT VISIT EST María Elena Orender [facility] CPT-4: 15666 02/03/2011 ([id number]) OFFICE/OUTPATIENT VISIT EST María Elena MONTEROQ [facility] CPT-4: 44541 01/31/2011 ([id number]) OFFICE/OUTPATIENT VISIT EST María Elena MONTEROQ [facility] CPT-4: 25355 01/25/2011 ([id number]) OFFICE/OUTPATIENT VISIT EST María Elena MONTEROQ [facility] CPT-4: 02445 01/18/2011 ([id number]) OFFICE/OUTPATIENT VISIT EST María Elena MONTEROQ [facility] CPT-4: 80818 11/29/2010 ([id number]) OFFICE/OUTPATIENT VISIT, EST María Elena MONTERO [facility] CPT-4: 86248 10/10/2010 ([id number]) OFFICE/OUTPATIENT VISIT, EST María Elena MONTERO [facility] CPT-4: 59286 06/07/2010 ([id number]) OFFICE/OUTPATIENT VISIT, EST María Elena MONTERO [facility] CPT-4: 72357 04/27/2010 ([id number]) OFFICE/OUTPATIENT VISIT, EST María Elena MONTERO [facility] CPT-4: 22029 04/05/2010 ([id number]) OFFICE/OUTPATIENT VISIT, EST María Elena MONTERO [facility] CPT-4: 19033 03/09/2010 ([id number]) OFFICE/OUTPATIENT VISIT, EST María Elena MONTERO [facility] CPT-4: 98014 03/03/2010 ([id number]) OFFICE/OUTPATIENT VISIT, EST María Elena MONTERO [facility] CPT-4: 24676 01/17/2010 ([id number]) PREV VISIT, EST, AGE 40-64 María Elena Oremindimaryjane MONTEROMICHAEL [facility] CPT-4: 67823 12/27/2009 Plan of Care Planned Activity Notes [...] : S90.821A 02/12/2020 Appointment: Kathleen Zuniga [address] [place] [address] ACUTE ILLNESS 02/12/2020 Visit Diagnosis Plan: Essential [...] E11.65 01/13/2020 Appointment: María Elena Appiah WPtel: [address] [place], [place] [phone] [place] FOLLOW UP 01/13/2020 Patient Education: lisinopril- [employer] [id number] Completed 01/13/2020 Patient Education: glimepiride- [employer] [id number] Completed 01/13/2020 Appointment: María Elena Appiah WPtel: [address] [place], [place] [phone] [place] CANCELED 11/26/2019 Visit Diagnosis Plan: Type 2 diabetes mellitus with hy perglycemia Discussion: Januvia 100mg daily Glimepride 2mg po BID Accuchecks BID Call in 2 weeks with BS readings Get formulary book ICD-9 : 250.02 ICD-10 : E11.65 11/20/2019 Appointment: María Elena Appiah WPtel: [phone] [id number] [place] FOLLOW UP 11/20/2019 Patient Education: glimepiride- [employer] [id number] Completed 11/20/2019 Patient Education: Januvia- [employer] [id number] Completed 11/20/2019 Visit Diagnosis Plan: Ingrowing nail Discussion: blanca cavanaugh with patient that she needs to have [...] ICD-10 : E11.65 10/07/2019 Appointment: Kathleen Zuniga [address] [place], [place] [id number] OFFICE SURGERY 10/07/2019 Visit Diagnosis Plan: Hypertriglyceridemia [...] : E11.65 09/30/2019 Appointment: María Elena Appiahtel: [address] [place], [place] [phone] US CHECK UP 09/30/2019 Patient Education: Premarin- [employer] [id number] [email or web address] Completed 09/30/2019 Appointment: María Elena Appiah WPtel: [address] [place], [place] [phone] [place] LAB 09/29/2019 Appointment: María Elena Appiah WPtel: [address] [place], [place] [phone] [place] Won't have the new insurance till Sep 10. CANCELE D 07/24/2019 Visit Diagnosis Plan: Essential (primary) hypertension Discussion: Stable Will have insurance in July and do lab then ICD-9 : 401.9 ICD-10 : I10 05/28/2019 Visit Diagnosis Plan: Fall from bed, sequela Discussio n: DC gabapentin Decrease baclofen to 10mg TID prn ICD-9 : E929.3 ICD-10 : W06.XXXS 05/28/2019 Appointment: María Elena Appiahtel: [address] [place], [place] [id number] [place] FOLLOW UP 05/28/2019 Appointment: María Elena Appiah: [address] [place], [place] [phone] [place] BP CHECK 05/19/2019 Visit Diagnosis Plan: [...] Z79.890 01/22/2019 Appointment: María Elena Appiah WPtel: [address] [place], [place] [phone] [place] FOLLOW UP 01/22/2019 Patient Education: estradiol- [employer] Coupon [id number] [email or web address] Completed 01/22/2019 Appointment: María Elena Appiah WPtel: [address] [place], [place] [phone] [place] CANCELED 01/20/2019 Appointment: María Elena Appiah WPtel: [address] [place], [place] [phone] [place] LM NO SHOW 01/06/2019 Appointment: María Elena Appiah WPtel: [address] [place], [place] [phone] [place] CANCELED 10/17/2018 Appointment: María Elena Appiah WPtel: [address] [place], [place] [phone] [place] BP CHECK 10/09/2018 Visit Diagnosis Plan: [...] I10 09/30/2018 Appointment: María Elena Appiah WPtel: [address] [place], [place] [phone] [place] FOLLOW UP 09/30/2018 Visit Diagnosis Plan: [...] F51.01 08/27/2018 Appointment: María Elena Appiah WPtel: [address] [place] [address] ACUTE ILLNESS 08/27/2018 Appointment: María Elena Appiah WPtel: [address] [place] [address] [place] Patient stated she went out to [...] Tyle... 08/09/2018 Appointment: María Elena Appiah WPtel: [address] [place] [address] ACUTE ILLNESS 08/09/2018 Appointment: María Elena Appiah WPtel: [address] [place] [address] NO SHOW 08/08/2018 Visit Diagnosis Plan: Anxiety [...] B35.4 07/22/2018 Appointment: María Elena Appiah WPtel: [address] [place] [address] ACUTE ILLNESS 07/22/2018 Appointment: María Elena Appiah WPtel: [address] [place] [address] [place] INJECTION 06/19/2018 Patient Education: Patient Medication [...] : L03.031 06/17/2018 Appointment: Kathleen Zuniga [address] [place] [address] ACUTE ILLNESS 06/17/2018 Patient Education: Patient Medication [...] ICD-10 : B02.9 05/16/2018 Appointment: Kathleen Zuniga [address] [place] [address] ACUTE ILLNESS 05/16/2018 Patient Education: Patient Medication [...] ICD-10 : L03.115 03/20/2018 Appointment: Kathleen Zuniga [address] [place], [place] [phone] FOLLOW UP 03/20/2018 Patient Education: Patient Medication [...] ICD-10 : L03.115 03/18/2018 Appointment: Kathleen Zuniga [address] [place], [place] [phone] FOLLOW UP 03/18/2018 Patient Education: Patient Medication [...] ICD-10 : L03.115 03/15/2018 Appointment: Kathleen Zuniga [address] [place], [place] [id number] ACUTE ILLNESS 03/15/2018 Patient Education: Patient Medication [...] ICD-10 : J01.90 02/11/2018 Appointment: Kathleen Zuniga [address] [place], [place] [id number] ACUTE ILLNESS 02/11/2018 Patient Education: Patient Medication Summary Completed 02/11/2018 Appointment: María Elena Appiah WPtel: [phone] [facility] [place] INJECTION 02/01/2018 Patient Education: Patient Medication [...] ICD-10 : M51.16 01/30/2018 Appointment: Kathleen Zuniga [address] [place] [address] ACUTE ILLNESS 01/30/2018 Patient Education: Patient Medication [...] E11.65 12/18/2017 Appointment: María Elena Appiah WPtel: [address] [place] [address] Annual Well Visit 12/18/2017 Patient Education: Patient Medication Summary Completed 12/18/2017 Care Plan: Referral Order SNOMED-CT : [phone] [id number] Pending 12/18/2017 Appointment: María Elena Appiah WPtel: [address] [place] [address] [place] INJECTION 12/10/2017 Patient Education: Patient Medication [...] : L03.031 12/07/2017 Appointment: Kathleen Zuniga [address] [place] [address] ACUTE ILLNESS 12/07/2017 Patient Education: Patient Medication [...] ICD-10 : J01.00 10/08/2017 Appointment: Kathleen Zuniga [address] [place] [address] ACUTE ILLNESS 10/08/2017 Patient Education: Patient Medication Summary Completed 10/08/2017 Appointment: María Elena Appiah WPtel: [facility] [place] INJECTION 09/21/2017 Patient Education: Patient Medication [...] : R06.83 09/20/2017 Appointment: Kathleen Zuniga [address] [facility] ACUTE ILLNESS 09/20/2017 Patient Education: Patient [...] : L60.0 08/29/2017 Appointment: Kathleen Zuniga [address] [facility] OFFICE SURGERY 08/29/2017 Patient Education: Patient Medication Summary Completed 08/29/2017 Visit Diagnosis Plan: Actinic keratosis Discussion: Cr yotherapy as above ICD-9 : 702.0 ICD-10 : L57.0 08/01/2017 Appointment: María Elena Appiah WPtel: [facility] [facility] 08/01/2017 Patient Education: Patient Medication Summary Completed 08/01/2017 Appointment: María Elena Appiah WPtel: [facility] PATIENT THOUGHT APPOINTMENT WAS TOMORROW 07/26/17 CALLED 15 MINUTES BEFORE APPT TO SAY SHE DIDN'T HAVE ANYONE TO COVER HER BUSINESS AND WOULD NOT MAKE IT NO SHOW 07/25/2017 Visit Diagnosis Plan: Cellulitis of left toe Discussio n: Clindamycin and notify if worsening or persistis ICD-9 : 681.10 ICD-10 : L03.032 07/19/2017 Appointment: María Elena Appiah WPtel: [address] [place], [place] [phone] MEDICATION REVIEW 07/19/2017 Patient Education: Patient Medication Summary Completed 07/19/2017 Appointment: María Elena Appiah WPtel: [address] [place], [place] [phone] CANCELED 07/04/2017 Visit Diagnosis Plan: Generalized hyperhidrosis Discus ian: CBC, CMP, TSH, free T4 ordered to assess. will review labs. ICD-9 : 780.8 ICD-10 : R61 06/27/2017 Visit Diagnosis Plan: Chronic sinusitis, unspecified D iscussion: Referral sent to dr. albarado in [place] per patient request. patient has been treated multiple times for sinus infections with no recovery. patient was seen by dr sanchez in the past with no interventions. patient has deviated septum which may be affecting her sinuses. 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, including hip Discussion: Shave removal of above lesio n--sent to pathology ICD-9 : 216.7 ICD-10 : D23.72 01/24/2017 Appointment: María Elena Appiah WPtel: [address] [place] [address] 01/23 confirmed ~sl OFFICE SURGERY 01/24/2017 Patient Education: Patient Medication Summary Completed 01/24/2017 Appointment: Loan Sánchez [address] [place] [address] 01/09 rescheduled~sl RESCHEDULED 01/15/2017 Visit Diagnosis Plan: [...] 12/13/2016 Appointment: María Elena Appiah [facility]Ptel: [facility] [facility] [place] 12/12 confirmed ~sl MEDICATION REVIEW 12/13/2016 Patient Education: Patient Medication Summary Completed 12/13/2016 Appointment: María Elena Appiah WPtel: [facility] [facility] [place] rescheduled for 12/13/16 at 11am RESCHEDULED 0 12/06/2016 Appointment: María Elena Appiah WPtel: [facility] [facility] [place] CANCELED 11/23/2016 Patient Education: Patient Medication [...] F51.01 11/01/2016 Appointment: María Elena Appiah WPtel: [facility] [place] 10/31 lm `sl 11/01 lm`sl MEDICATION REVIEW 017 Patient Education: Patient Medication Summary Completed 11/01/2016 Referral: Canelo Overton WPtel: [phone] [id number] [place] Referral Initiated 10/30/2016 Visit Diagnosis Plan: [...] Z01.419 10/17/2016 Appointment: María Elena Appiah WPtel: [address] [place] [address] 10/16 confirmed ~sl PAP 10/17/2016 Patient Education: Patient Medication Summary Completed 10/17/2016 Care Plan: MAMMOGRAM SCREENING LOINC : 2 6347-5 Pending 10/17/2016 Visit Diagnosis Plan: Other seasonal allergic rhinitis Discussion: Decadron/Garamycin Nasal [place] Mix Too soon for steroid Retry zyrtec 10mg daily ICD-9 : 477.9 ICD-10 : J30.2 10/10/2016 Appointment: María Elena Appiah WPtel: [address] [place] [address] FOLLOW UP 10/10/2016 Patient Education: Patient Medication Summary Completed 10/10/2016 Appointment: María Elena Appiah WPtel: [address] [place] [address] 10/02 reschedule `sl RESCHEDULED 10/02/2016 Visit Plan: See surgery for removal of n ew left arm lesion and right foot lesion Lyrica to use next month for left arm paresthesias Continue current meds Discussed sunscreen/sunblock combo 09/19/2016 Appointment: María Elena Appiahtel: [address] [place], [place] [phone] 09/18 confirmed ~sl FOLLOW UP 09/19/2016 Patient Education: Patient Medication Summary Completed 09/19/2016 Patient Education: Patient Medication Summary Completed 09/18/2016 Care Plan: MAMMOGRAM BOTH BREASTS LOINC : 17440-6 Pending 09/18/2016 Visit Plan: Discussed that needs [...] drying out sinuses 08/24/2016 Appointment: María Elena Appiah: [address] [place] [address] ACUTE ILLNESS 08/24/2016 Patient Education: Patient Medication Summary Completed 08/24/2016 Patient Education: Patient Medication Summary Completed 08/23/2016 Care Plan: MAMMOGRAM SCREENING LOINC : 2 6347-5 Pending 08/23/2016 Visit Plan: Finish doxycycline Add Breo 100/25 1 p BID for 2 weeks If not improving within next 2 days will get CXR 08/16/2016 Appointment: María Elena Appiah WPtel: [address] [place] [address] ACUTE ILLNESS 08/16/2016 Patient Education: Patient Medication Summary Completed 08/16/2016 Visit Plan: Supportive care. Rest, Fluid s, Tylenol/Motrin prn fever or bodyaches. Notify if worsening symptoms. Doxycyline and Prednisone 08/10/2016 Appointment: María Elena Appiah WPtel: [address] [place] [address] 08/09 lm`sl....confirmed-sp FOLLOW UP 09/2015 Patient Education: Patient Medication Summary Completed 08/10/2016 Visit Plan: Saline nasal flushes prn. Ty lenol/Motrin prn headache. Notify if persists/symptoms worsening. Dexamethasone 8mg IM today May use coricedan and mucinex 08/02/2016 Appointment: María Elena Appiah WPtel: [address] [place] [address] ACUTE ILLNESS 08/02/2016 Patient Education: Patient Medication Summary Completed 08/02/2016 Visit Plan: Cryotherapy as above and lef t forearm lesion removal as above with 5-0 punch biopsy and sent to path Return in 10 days for suture removal 08/01/2016 Appointment: María Elena Appiah WPtel: [address] [place] [address] 07/31 confirmed`~sl OFFICE SURGERY 08/01/2016 Patient Education: Patient Medication Summary Completed 08/01/2016 Visit Plan: Stop clindamycin Check CBC, CMP, ESR now/STAT 07/27/2016 Appointment: María Elena Appiah WPtel: [address] [place] [address] ACUTE ILLNESS 07/27/2016 Patient Education: Patient Medication Summary Completed 07/27/2016 Visit Plan: Update lab and check ABIs to start with Will likely need cardiology evaluation to rule out PVD Clindamycin for 10 days Daily yogurt or probiotic Will return for removal of left arm lesions 07/20/2016 Appointment: María Elena Appiah WPtel: [address] [place], [place] [phone] ACUTE ILLNESS 07/20/2016 Patient Education: Patient Medication Summary Completed 07/20/2016 Patient Education: Patient Medication Summary Completed 07/20/2016 Care Plan: MAMMOGRAM BOTH BREASTS LOINC : 17315-7 Pending 07/20/2016 Care Plan: US EXAM CHEST LOINC : 32697-3 Pending 07/20/2016 Visit Plan: Wound culture collected from left great toe Appearance is somewhat staph like Rx as above Wound cleanser and skin care reviewed May need to add oral antibiotic if sores do not heal or continue to reoccur 07/06/2016 Appointment: Loan Sánchez [address] [place] [address] ACUTE ILLNESS 07/06/2016 Patient Education: Patient Medication Summary Completed 07/06/2016 Appointment: María Elena Appiah WPtel: [address] [place], [place] [phone] [place] INJECTION 05/25/2016 Patient Education: Patient Medication Summary Completed 05/25/2016 Visit Plan: Saline nasal flushes prn. Ty lenol/Motrin prn headache. Notify if persists/symptoms worsening. Dexamethasone and Rocephin given 04/26/2016 Appointment: María Elena Appiah WPtel: [address] [place] [address] ACUTE ILLNESS 04/26/2016 Patient Education: Patient Medication Summary Completed 04/26/2016 Visit Plan: Check CBC, CMP, TSH, FreeT4, HbA1C, estradiol, lipids in AM 03/02/2016 Appointment: María Elena Appiah WPtel: [address] [place] [address] 03/01 lm~sl ACUTE ILLNESS 03/02/2016 Patient Education: Patient Medication Summary Completed 03/02/2016 Visit Plan: Exam is nearly normal Needs to be taking daily antihistamine Would prefer to use oral steroids instead of shot but patient insist that oral steroids cause horrible headaches for her Will given kenalog IM instead 02/09/2016 Appointment: Loan Sánchez [address] [place] [address] ACUTE ILLNESS 02/09/2016 Patient Education: Patient Medication Summary Completed 02/09/2016 Visit Plan: Culture urine Macrobid DC xa nax Trial of Ativan 1mg q HS 01/24/2016 Appointment: María Elena Appiah WPtel: [address] [place] [address] ACUTE ILLNESS 01/24/2016 Patient Education: Patient Medication Summary Completed 01/24/2016 Visit Plan: No steroid or rocephin injec tion warranted Can have oral prednisone Continue current home regimen Needs to follow up with Dr Sanchez if problems persist 12/23/2015 Appointment: Loan Sánchez [address] [place] [address] ACUTE ILLNESS 12/23/2015 Patient Education: Patient Medication Summary Completed 12/23/2015 Visit Plan: Saline nasal flushes prn. Ty lenol/Motrin prn headache. Notify if persists/symptoms worsening. Kenalog 40mg IM today 12/08/2015 Appointment: María Elena Appiah WPtel: [address] [place] [address] 12/06 confirmed~sl ACUTE ILLNESS 12/08/2015 Patient Education: Patient Medication Summary Completed 12/08/2015 Appointment: María Elena Appiah WPtel: [address] [place] [address] ACUTE ILLNESS 11/18/2015 Patient Education: Patient Medication Summary Completed 10/11/2015 Appointment: María Elena Appiah WPtel: [address] [place] [address] [place] INJECTION 10/07/2015 Patient Education: Patient Medication Summary Completed 10/07/2015 Visit Plan: Check renal arterial doppler s and ECHO Change amlodopine to lotrel 5/20mg q HS Will need stress test as well Check CMP, uric acid, ESR 10/06/2015 Appointment: María Elena Appiah WPtel: [address] [place], [place] [phone] ACUTE ILLNESS 10/06/2015 Patient Education: Patient Medication Summary Completed 10/06/2015 Patient Education: [facility] - Saving [employer] - Amlodipine Besylate - 18-64 - Dynamic Portal ID Completed 10/06/2015 Appointment: María Elena Appiah WPtel: [address] [place], [place] [phone] FOLLOW UP 09/22/2015 Visit Plan: Cephalexin 500 mg PO bid Mery ly topical Mupirocin to lesions on left lateral neck and face Follow-up in one week. Sooner if symptoms worsen 09/14/2015 Appointment: June Flores WPtel: [address] [place], [place] [phone] ACUTE ILLNESS 09/14/2015 Patient Education: Patient Medication Summary Completed 09/14/2015 Visit Plan: Change bystolic to bedtime d osing and amlodopine to morning dosing Cryotherapy as above to AKs 09/07/2015 Appointment: María Elena Appiah WPtel: [address] [place], [place] [phone] 09/06 appointment made and confirmed ~ FOLLOW UP 09/07/2015 Patient Education: Patient Medication Summary Completed 09/07/2015 Visit Plan: Increase bystolic back to 20 mg daily but will split and take 10mg in AM and 10mg in PM Stress Reducers 08/18/2015 Appointment: María Elena Appiah WPtel: [address] [place], [place] [phone] 08/17/15 appt confirmed cn ACUTE ILLNESS 08/18 Patient Education: Patient Medication Summary Completed 08/18/2015 Appointment: María Elena Appiah WPtel: [address] [place] [address] BP CHECK 07/07/2015 Patient Education: Patient Medication Summary Completed 07/07/2015 Appointment: María Elena Appiah WPtel: [address] [place] [address] BP CHECK 06/24/2015 Patient Education: Patient Medication Summary Completed 06/24/2015 Appointment: María Elena Appiah WPtel: [address] [place] [address] BP CHECK 06/21/2015 Patient Education: Patient Medication Summary Completed 06/21/2015 Visit Plan: Lab discussed Continue suhail nt meds and lifestyle modification Recheck lab in 6mos 06/16/2015 Appointment: María Elena Appiah WPtel: [address] [place] [address] 06/15 confirmed FOLLOW UP 06/16/2015 Patient Education: Patient Medication Summary Completed 06/16/2015 Patient Education: Patient Medication Summary Completed 06/15/2015 Visit Plan: Increase cymbalta to 60mg q HS Keep clonidine at current dose Recheck 2weeks Change xanax to klonopin 06/02/2015 Appointment: María Elena Appiah WPtel: [address] [place] [address] 06/02 lm FOLLOW UP 06/02/2015 Patient Education: Patient Medication Summary Completed 06/02/2015 Appointment: María Elena Appiah WPtel: [address] [place] [address] ACUTE ILLNESS 05/24/2015 Visit Plan: Increase clonidine to 0.2mg q HS Add cymbalta 30mg q HS Recheck 2weeks Stress Reducers Check fasting lab Discussed sleep study 05/20/2015 Appointment: María Elena Appiah WPtel: [address] [place] [address] ACUTE ILLNESS 05/20/2015 Patient Education: Patient Medication Summary Completed 05/20/2015 Patient Education: [facility] - [employer]aving [employer] - Cymbalta - 18-64 - Dynamic Portal ID Completed 05/20/2015 Appointment: María Elena Appiah WPtel: [address] [place] [address] BP CHECK 05/19/2015 Patient Education: Patient Medication Summary Completed 05/19/2015 Visit Plan: Topical Bactroban alternatin g with topical betamethasone Recheck 2weeks 05/10/2015 Appointment: María Elena Appiah WPtel: [address] [place] [address] 05/07 vm cn...05/07 appt confirmed OFFICE SURGER Y 05/10/2015 Patient Education: Patient Medication Summary Completed 05/10/2015 Referral: Patrick Chandler WPtel: [facility] [place] Referral Initiated 05/04/2015 Visit Plan: Saline nasal flushes prn. Ty lenol/Motrin prn headache. Notify if persists/symptoms worsening. Depomedrol 40mg IM today 03/16/2015 Appointment: María Elena Appiah WPtel: [address] [place] [address] ACUTE ILLNESS 03/16/2015 Patient Education: Patient Medication Summary Completed 03/16/2015 Appointment: María Elena Appiah WPtel: [address] [place] [address] ER Follow UP 03/09/2015 Visit Plan: Cryotherapy to lesions as ab ove 10/27/2014 Appointment: María Elena Appiah WPtel: [address] [place] [address] OFFICE SURGERY 10/27/2014 Patient Education: Patient Medication Summary Completed 10/27/2014 Appointment: June Flores WPtel: [address] [place] [address] ACUTE ILLNESS 09/11/2014 Patient Education: Patient Medication Summary Completed 09/11/2014 Visit Plan: Lab discussed Lipitor 10mg d aily Coenzyme Q-10 400mg daily Vitamin D3 5000u daily Recheck lipids with LFTs in 3mos then fwup 08/31/2014 Appointment: María Elena Appiahtel: [address] [place] [address] 08/28 voicemail FOLLOW UP 08/31/2014 Patient Education: Patient Medication Summary Completed 08/31/2014 Appointment: María Elena Appiah WPtel: [address] [place] [address] [place] LAB 08/27/2014 Appointment: María Elena Appiah WPtel: [address] [place] [address] [place] LAB 08/27/2014 Patient Education: Patient Medication Summary Completed 08/27/2014 Appointment: María Elena Appiah WPtel: [address] [place] [address] ACUTE ILLNESS 07/23/2014 Appointment: María Elena Appiah WPtel: [address] [place] [address] ACUTE ILLNESS 07/21/2014 Patient Education: Patient Medication Summary Completed 07/21/2014 Visit Plan: Kenalog 40mg IM today Contin ue narendra and singulair Add Flonase 07/15/2014 Appointment: María Elena Appiahtel: [address] [place] [address] ACUTE ILLNESS 07/15/2014 Appointment: María Elena Appiah WPtel: [address] [place] [address] ACUTE ILLNESS 07/15/2014 Patient Education: Patient Medication Summary Completed 07/15/2014 Visit Plan: Will do metolazone 2.5mg prn with 6 potassium and see if causes as severe cramping Trial of of seroquel XR 50mg q PM with evening meal and let us know how works 05/18/2014 Appointment: María Elena Appiah WPtel: [address] [place], [place] [id number] 05/15 left message FOLLOW UP 05/18/2014 Patient Education: Patient Medication Summary Completed 05/18/2014 Appointment: María Elena Appiah WPtel: [address] [place], [place] [phone] [place] LAB 05/14/2014 Patient Education: Patient Medication Summary Completed 05/14/2014 Appointment: María Elena Appiah WPtel: [address] [place], [place] [phone] [place] INJECTION 04/22/2014 Visit Plan: Rocephin and Kenalog today a nd finish abx given from urgent care 04/21/2014 Appointment: María Elena Appiah WPtel: [address] [place], [place] [phone] [place] INJECTION 04/21/2014 Patient Education: Patient Medication Summary Completed 04/21/2014 Appointment: June Flores WPtel: [address] [place], [place] [phone] ACUTE ILLNESS 03/04/2014 Patient Education: Patient Medication Summary Completed 03/04/2014 Appointment: María Elena Appiah WPtel: [address] [place], [place] [phone] [place] INJECTION 02/27/2014 Patient Education: Patient Medication Summary Completed 02/27/2014 Visit Plan: Cryotherapy as above to all lesions Patient wants to try no meds for insomnia for a while and see how goes 01/13/2014 Appointment: María Elena Appiah WPtel: [address] [place], [place] [phone] OFFICE SURGERY 01/13/2014 Patient Education: Patient Medication Summary Completed 01/13/2014 Visit Plan: Stop Melatonin Stop Soma Tri al of trazadone 75mg q HS See ENT for possible tubes as has had chronic ETD and serous otitis media with numerous steroids 12/24/2013 Appointment: María Elena Appiah WPtel: [address] [place], [place] [phone] ACUTE ILLNESS 12/24/2013 Patient Education: Patient Medication Summary Completed 12/24/2013 Visit Plan: Saline nasal flushes prn. Ty lenol/Motrin prn headache. Notify if persists/symptoms worsening. 11/12/2013 Appointment: María Elena Appiah WPtel: [address] [place] [address] ACUTE ILLNESS 11/12/2013 Patient Education: Patient Medication Summary Completed 11/12/2013 Appointment: María Elena Appiah WPtel: [address] [place] [address] ACUTE ILLNESS 10/21/2013 Patient Education: Patient Medication Summary Completed 10/21/2013 Visit Plan: Sleep hygiene and sleep rout ine Melatonin 10mg q HS Support stockings and observe 09/22/2013 Appointment: María Elena Appiah WPtel: [address] [place] [address] ACUTE ILLNESS 09/22/2013 Patient Education: Patient Medication Summary Completed 09/22/2013 Appointment: June Flores WPtel: [address] [place] [address] ACUTE ILLNESS 08/27/2013 Patient Education: Patient Medication Summary Completed 08/27/2013 Visit Plan: Proceed with CT scan of head /neck Proceed with occipital nerve injections Butrans 20mcg patch weekly until can get into see Dr. Mcdonough for injections 08/04/2013 Appointment: María Elena Appiah WPtel: [address] [place] [address] FOLLOW UP 08/04/2013 Patient Education: Patient Medication Summary Completed 08/04/2013 Visit Plan: OMT done Daily neck stretche s, moist heat Increase Celebrex to 200mg BID Add flexeril 07/23/2013 Appointment: María Elena Appiah WPtel: [address] [place] [address] 07/22 voicemail FOLLOW UP 07/23/2013 Patient Education: Patient Medication Summary Completed 07/23/2013 Appointment: María Elena Appiah WPtel: [address] [place] [address] ACUTE ILLNESS 06/23/2013 Patient Education: Patient Medication Summary Completed 06/23/2013 Appointment: María Elena Appiah WPtel: [address] [place] [address] ACUTE ILLNESS 05/26/2013 Patient Education: Patient Medication Summary Completed 05/26/2013 Visit Plan: Decrease clonidine to 0.1mg TID If BP remains stable consider decreasing amlodopine Prednisone for 5 days BP check in 1mo 04/16/2013 Appointment: María Elena Appiah WPtel: [address] [place] [address] 04/14 pt called and confirmed appt FOLLOW UP 04/16/2013 Patient Education: Patient Medication Summary Completed 04/16/2013 Appointment: María Elena Appiah WPtel: [address] [place] [address] ACUTE ILLNESS 03/05/2013 Patient Education: Patient Medication Summary Completed 03/05/2013 Visit Plan: Pt has MARIA ELENA on with Dr. Mcdonough Continue Butrans patch Refill Hydrocodone early tomorrow 12/23/2012 Appointment: María Elena Appiah WPtel: [address] [place] [address] FOLLOW UP 12/23/2012 Patient Education: Patient Medication Summary Completed 12/23/2012 Appointment: Lashawn Eckert WPtel: [address] [place], [place] [phone] ACUTE ILLNESS 12/16/2012 Patient Education: Patient Medication Summary Completed 12/16/2012 Visit Plan: Proceed with updated MRI of LS spine Continue gabapentin and add soma and diclofenac Will likely need to go for another epidural 12/09/2012 Appointment: María Elena Appiah WPtel: [address] [place] [address] ACUTE ILLNESS 12/09/2012 Patient Education: Patient Medication Summary Completed 12/09/2012 Visit Plan: Injection as above Finish me drol dose pack Chiropracter this afternoon 12/04/2012 Appointment: María Elena Appiah WPtel: [address] [place] [address] ACUTE ILLNESS 12/04/2012 Patient Education: Patient Medication Summary Completed 12/04/2012 Appointment: Mary Tillman WPtel: [address] [place] [address] FOLLOW UP 11/22/2012 Patient Education: Patient Medication Summary Completed 11/22/2012 Appointment: María Elena Appiah WPtel: [address] [place] [address] ACUTE ILLNESS 11/21/2012 Patient Education: Patient Medication Summary Completed 11/21/2012 Appointment: María Elena Appiah WPtel: [address] [place] [address] BP CHECK 11/07/2012 Patient Education: Patient Medication Summary Completed 11/07/2012 Visit Plan: reports extra clonidine and extra amlodipine and extra alprazalam. extra Ketolorac and promethazine last night. Bystolic 10 mg QAM and will continue all other blood pressure meds. Pt. encouraged to rest and hydrate. Discussed stroke and HI symptoms. Pt. instructed to seek ER eval if symptoms worsen or headache persists. Pt. agrees to ER eval/EMS transport if symptoms worsen. BP re-check. 10/29/2012 Appointment: Lashawn Eckert WPtel: [address] [place] [address] ACUTE ILLNESS 10/29/2012 Patient Education: Patient Medication Summary Completed 10/29/2012 Appointment: María Elena Appiah WPtel: [address] [place] [address] ACUTE ILLNESS 10/14/2012 Patient Education: Patient Medication Summary Completed 10/14/2012 Appointment: María Elena Appiah WPtel: [address] [place] [address] UA 09/27/2012 Patient Education: Patient Medication Summary Completed 09/27/2012 Appointment: María Elena Appiah WPtel: [address] [place] [address] ACUTE ILLNESS 09/25/2012 Patient Education: Patient Medication Summary Completed 09/25/2012 Appointment: María Elena Appiah WPtel: [address] [place], [place] [phone] BP CHECK 09/24/2012 Appointment: María Elena Appiah WPtel: [address] [place], [place] [phone] ACUTE ILLNESS 08/29/2012 Patient Education: Patient Medication Summary Completed 08/29/2012 Visit Plan: Cryotherapy as above See Karlos m for right ear lesion--probable MOHs procedure Increase amlodopine to 10mg daily 08/12/2012 Appointment: María Elena Appiah WPtel: [address] [place], [place] [phone] OFFICE SURGERY 08/12/2012 Patient Education: Patient Medication Summary Completed 08/12/2012 Appointment: María Elena Appiah WPtel: [address] [place] [address] 05/03 vm on pt phone...pt called on 04/11 3 pt called wanting in had no one cancel so could not get her in for an appt sooner than 05/06. ACUTE ILLNESS 05/06/2012 Patient Education: Patient Medication Summary Completed 05/06/2012 Visit Plan: Pt wants to hold on any furt her sleep medications 04/03/2012 Appointment: María Elena Appiah WPtel: [address] [place], [place] [phone] FOLLOW UP 04/03/2012 Patient Education: Patient Medication Summary Completed 04/03/2012 Appointment: María Elena Appiah WPtel: [address] [place], [place] [phone] FOLLOW UP 03/19/2012 Patient Education: Patient Medication Summary Completed 03/19/2012 Appointment: María Elena Appiahtel: [address] [place] [address] BP CHECK 02/22/2012 Patient Education: Patient Medication Summary Completed 02/22/2012 Appointment: María Elena Appiah WPtel: [address] [place] [address] BP CHECK 02/21/2012 Patient Education: Patient Medication Summary Completed 02/21/2012 Visit Plan: Doxycycline and bactroban fo r foot Supportive care on ankles and knees Add norvasc for BP 02/20/2012 Appointment: María Elena Appiah WPtel: [address] [place] [address] ER Follow UP 02/20/2012 Patient Education: Patient Medication Summary Completed 02/20/2012 Appointment: María Elena Appiah WPtel: [address] [place] [address] ACUTE ILLNESS 01/30/2012 Patient Education: Patient Medication Summary Completed 01/30/2012 Appointment: María Elena Appiah WPtel: [address] [place] [address] ACUTE ILLNESS 01/24/2012 Patient Education: Patient Medication Summary Completed 01/24/2012 Visit Plan: Daily back stretches, moist heat, Biofreeze prn OMT done 01/10/2012 Appointment: María Elena Appiah WPtel: [address] [place] [address] ACUTE ILLNESS 01/10/2012 Patient Education: Patient Medication Summary Completed 01/10/2012 Appointment: María Elena Appiah WPtel: [address] [place] [address] FOLLOW UP 12/11/2011 Patient Education: Patient Medication Summary Completed 12/11/2011 Appointment: María Elena Appiah WPtel: [address] [place] [address] ACUTE ILLNESS 11/09/2011 Patient Education: Patient Medication Summary Completed 11/09/2011 Appointment: María Elena Appiahtel: [address] [place] [address] ACUTE ILLNESS 09/13/2011 Patient Education: Patient Medication Summary Completed 09/13/2011 Visit Plan: Check CBC, TSH, Free T4, CMP , ESR, Vit D, B12 now Start Prednisone today 08/31/2011 Appointment: María Elena Appiah WPtel: [address] [place] [address] ACUTE ILLNESS 08/31/2011 Patient Education: Patient Medication Summary Completed 08/31/2011 Appointment: María Elena Appiahtel: [address] [place] [address] [place] INJECTION 07/20/2011 Patient Education: Patient Medication Summary Completed 07/20/2011 Visit Plan: Continue current meds Monite r BP Cont stretches from PT 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 07/06/2011 Appointment: María Elena Appiahtel: [address] [place] [address] FOLLOW UP 07/06/2011 Patient Education: Patient Medication Summary Completed 07/06/2011 Appointment: María Elena Appiahtel: [address] [place] [address] BP CHECK 06/06/2011 Patient Education: Patient Medication Summary Completed 06/06/2011 Visit Plan: Add Bystolic at 2.5mg QAM Ad d Robaxin 750mg 2 po q HS BP check in 2wks 05/22/2011 Appointment: María Elena Appiah WPtel: [address] [place] [address] FOLLOW UP 05/22/2011 Patient Education: Patient Medication Summary Completed 05/22/2011 Appointment: María Elena Appiahtel: [address] [place] [address] ER Follow UP 05/09/2011 Patient Education: Patient Medication Summary Completed 05/09/2011 Appointment: María Elena Appiah WPtel: [address] [place] [address] FOLLOW UP 02/22/2011 Visit Plan: Rx written for Hydrocodone 1 0/325mg #240 See Ortho 02/14/2011 Appointment: María Elena Appiah WPtel: [address] [place] [address] OMT 02/14/2011 Patient Education: Patient Medication Summary [...] lab work. 02/03/2011 Appointment: Lashawn Eckert WPtel: [address] [place] [address] ACUTE ILLNESS 02/03/2011 Patient Education: Patient Medication Summary Completed 02/03/2011 Visit Plan: OMT done Cont daily stretche s 01/31/2011 Appointment: María Elena Appiah WPtel: [address] [place] [address] ACUTE ILLNESS 01/31/2011 Patient Education: Patient Medication Summary Completed 01/31/2011 Visit Plan: Continue pain meds OMT done Proceed with PT No work this summer01/25/2011 Appointment: María Elena Appiah WPtel: [address] [place] [address] ACUTE ILLNESS 01/25/2011 Patient Education: Patient Medication Summary Completed 01/25/2011 Visit Plan: Start PT Long discussion abo ut getting pain meds from only us and can only have max of 4grams of tylenol per day Change to Hydrocodone 10/325mg 1- 2 po TID prn pain--#180 called to Radha 01/18/2011 Appointment: María Elena Appiahtel: [address] [place] [address] [place] FOLLOW UP 01/18/2011 Patient Education: Patient Medication Summary Completed 01/18/2011 Visit Plan: Daily back stretches, moist heat, Biofreeze prn 11/29/2010 Appointment: María Elena Appiah WPtel: [address] [place] [address] ER Follow UP 11/29/2010 Patient Education: Patient Medication Summary Completed 11/29/2010 Visit Plan: Saline nasal flushes prn. Ty lenol/Motrin prn headache. Notify if persists/symptoms worsening. Finish augmentin Add Medrol Dose Pack 10/10/2010 Appointment: María Elena Appiah WPtel: [address] [place] [address] ACUTE ILLNESS 10/10/2010 Patient Education: Patient Medication Summary Completed 10/10/2010 Visit Plan: Cryotherapy x3 to multiple l esions on both forearms 07/19/2010 Appointment: María Elena Appiah WPtel: [address] [place] [address] OFFICE SURGERY 07/19/2010 Patient Education: Patient Medication Summary Completed 07/19/2010 Appointment: María Elena Appiah WPtel: [address] [place] [address] BP CHECK 07/06/2010 Patient Education: Patient Medication Summary Completed 07/06/2010 Appointment: María Elena Appiahtel: [address] [place], [place] [phone] BP CHECK 06/30/2010 Patient Education: Patient Medication Summary Completed 06/30/2010 Appointment: María Elena Appiah WPtel: [address] [place], [place] [phone] BP CHECK 06/20/2010 Patient Education: Patient Medication Summary Completed 06/20/2010 Visit Plan: Change Diovan to Exforge 160 /5mg QD OMT done to thoracics BP check in 2wks 06/07/2010 Appointment: María Elena Appiah WPtel: [address] [place] [address] FOLLOW UP 06/07/2010 Patient Education: Patient Medication Summary Completed 06/07/2010 Appointment: María Elena Appiah WPtel: [address] [place] [address] BP CHECK 06/03/2010 Patient Education: Patient Medication Summary Completed 06/03/2010 Appointment: María Elena Appiah WPtel: [address] [place] [address] BP CHECK 06/01/2010 Patient Education: Patient Medication Summary Completed 06/01/2010 Visit Plan: Irritated skin tags to left neck x2 excised at base with scissors and base cauterized 05/30/2010 Appointment: María Elena Appiah WPtel: [address] [place] [address] OFFICE SURGERY 05/30/2010 Patient Education: Patient Medication Summary Completed 05/30/2010 Visit Plan: Saline nasal flushes prn. Ty lenol/Motrin prn headache. Notify if persists/symptoms worsening. Restart Nasonex Has allergy testing set for May 25 04/27/2010 Appointment: María Elena Appiah WPtel: [address] [place] [address] ACUTE ILLNESS 04/27/2010 Patient Education: Patient Medication Summary Completed 04/27/2010 Visit Plan: Saline nasal flushes prn. Ty lenol/Motrin prn headache. Notify if persists/symptoms worsening. Omnaris BID plus injections 04/05/2010 Appointment: María Elena Appiah WPtel: [address] [place] [address] ACUTE ILLNESS 04/05/2010 Patient Education: Patient Medication Summary Completed 04/05/2010 Visit Plan: Saline nasal flushes prn. Ty lenol/Motrin prn headache. Notify if persists/symptoms worsening. 03/09/2010 Appointment: María Elena Appiah WPtel: [address] [place] [address] ACUTE ILLNESS 03/09/2010 Patient Education: Patient Medication Summary Completed 03/09/2010 Visit Plan: Cont Clonidine as is Cont Pr emarin Fwup with surgery as scheduled 03/03/2010 Appointment: María Elena Appiah WPtel: [address] [place] [address] FOLLOW UP 03/03/2010 Patient Education: Patient Medication Summary Completed 03/03/2010 Visit Plan: Check Pelvic US now Dukee tacho Sal C vs Hysterectomy 01/17/2010 Appointment: María Elena Appiah WPtel: [address] [place] [address] ACUTE ILLNESS 01/17/2010 Patient Education: Patient Medication Summary Completed 01/17/2010 Visit Plan: Check fasting lab and schedu le Mammogram 2gm Na Diet Trial of Ambien 10mg qhs Fwup pending lab results 12/27/2009 Appointment: María Elena Appiah WPtel: [address] [place] [address] ESTABLISHED PATIENT 12/27/2009 Patient Education: Patient Medication Summary Completed 12/27/2009 Referral: Canelo Overton WPtel: [phone] [id number] [place] Referral Initiated Referral: Philipp Flores WPtel: [address] [id number] [place] Referral Appointment Requested Instructions Comment . [...] to rest and hydrate. Discussed stroke and HI symptoms. Pt. instructed to seek ER eval [...]
[2020-03-13] MEDS ORDERED: CEPH500T PO (04:23)
--- NOTE | 2020-03-13 04:23 | ED Upper Extremity ---
General Chief Complaint: Upper Extremity Stated Complaint: LAC ON RT HAND Nursing Triage Note: PT AMBULATE TO TRIAGE WITH C/O RIGHT INDEX FINGER SWELLING. PT STATES SHE WAS PINNING HER DUCKS UP LAST NIGHT AND WAS POKED IN TWO AREAS ON FINGER. PT NOW REPORTS SWELLING AND STIFFNESS IN FINGER. Nursing Sepsis Screen: No Definite Risk Source: patient History of Present Illness Date Seen by Provider: Mar 13, 2020 Time Seen by Provider: 04:15 Initial Comments PT ARRIVES VIA POV FROM HOME STATES AT 2000 TONIGHT, SHE WAS PUTTING DUCKS IN A PEN AND HAS 2 TINY PUNCTURE W OUNDS TO RIGHT INDEX FINGER-FROM A PIECE OF WIRE ON THE PEN STATES FINGER IS SWOLLEN AND FEELS STIFF AND JOINTS ARE BURNING NO PARESTHESIAS OR MOTOR DEFICITS. PT HAS BEEN ON DOXYCYCLINE SINCE 03/04/20 FOR A MINOR ABRASION TO TOP OF LEFT FOOT--SEEN BY DR. PIERRE FOR THAT PROBLEM TOOK 2 HYDROCODONE 10/325 AT 2200 WHICH IS HER NORMAL DOSE. PT IS RIGHT HANDED. NO PRIOR INJURY TO THIS HAND/FINGER. PT STATES SHE IS "PRE-DIABETIC" AND IS ON MEDICATION FOR DIABETES. PCP: DR. PIERRE Allergies and Home Medications Allergies Coded Allergies: clindamycin (Verified Allergy, Intermediate, POLYSYSTEMIC ARTHRITIS, 08/23/16) meperidine (Verified Allergy, Intermediate, N/V, 09/28/16) Penicillins (Unverified Allergy, Mild, 06/05/15) Sulfa (Sulfonamide Antibiotics) (Unverified Allergy, Mild, 06/05/15) succinylcholine (Unverified Allergy, Unknown, 06/05/15) Uncoded Allergies: serum dex deficiency (Allergy, Mild, 03/08/09) PSEUDOCHOLINESTERASE (Allergy, Unknown, 06/05/15) Home Medications Allopurinol 100 Mg Tablet, 100 MG PO DAILY, (Reported) Alprazolam 1 Mg Tablet, 1.5 MG PO HS PRN for SLEEP, (Reported) Cephalexin 500 Mg Tablet, 500 MG PO QID Prescribed by: GAMALIEL WHITLOCK on 02/08/19 0955 Cephalexin 500 Mg Tablet, 500 MG PO QID Prescribed by: HORTENCIA MORGAN on 03/13/20 0423 Clonidine HCl 0.1 Mg Tablet, 0.1 MG PO QID, (Reported) Cyanocobalamin (Vitamin B-12) 1,000 Mcg Tablet.er, 1,000 MCG PO DAILY, (Reported) Estrogens,Conjugated 1.25 Mg Tablet, 1.25-2.5 MG PO DAILY, (Reported) take 1-2 (1.25mg tabs) Hydrocodone Bit/Acetaminophen 1 Each Tablet, 1-2 TAB PO 4-6HR PRN for PAIN Prescribed by: BEKAH RUTH on 08/25/16 1001 Nebivolol Hcl 10 Mg Tablet, 10 MG PO HS, (Reported) Oxycodone HCl/Acetaminophen 1 Each Tablet, 1-2 EACH PO Q6H PRN for BREAKTHROUGH PAIN Prescribed by: PAULINA JAMES on 03/11/181906 Polyethylene Glycol 3350 17 Gm Powd.pack, 17 GM PO DAILY PRN PRN for CONSTIPATION-1ST LINE Prescribed by: PAULINA JAMES on 03/11/181906 Potassium Chloride 8 Meq Tablet.sa, 8 MEQ PO BID, (Reported) Prednisone 20 Mg Tab, 40 MG PO DAILY Prescribed by: GAMALIEL WHITLOCK on 02/08/19 0955 Triamterene/Hydrochlorothiazid 1 Each Tablet, 1 EACH PO DAILY, (Reported) Ubidecarenone 400 Mg Capsule, 400 MG PO DAILY, (Reported) Vitamin E Acetate 400 Unit Capsule, 400 UNIT PO DAILY, (Reported) Patient Home Medication List Home Medication List Reviewed: Yes Review of Systems Constitutional: no symptoms reported Musculoskeletal: see HPI Skin: see HPI Psychiatric/Neurological: No Symptoms Reported Past Lkmsyua-Yddntc-Orjiye Hx Past Med/Social Hx: Reviewed and Corrections made Patient Social History Alcohol Use: Denies Use Recreational Drug Use: No Smoking Status: Never a Smoker 2nd Hand Smoke Exposure: No Recent Foreign Travel: No Contact w/Someone Who Travel: No Recent Infectious Disease Expo: No Recent Hopitalizations: No Physical Abuse: No Sexual Abuse: No Mistreated: No Fear: No Immunizations Up To Date Tetanus Booster (TDap): More than 5yrs Seasonal Allergies Seasonal Allergies: Yes Past Medical History Surgeries: Yes (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, LESION TO FOREARM, lesions) Adenoidectomy, Hysterectomy, Oophorectomy, Tonsillectomy Respiratory: No Pneumonia Cardiac: Yes Hypertension Neurological: Yes Headaches /Migraines 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 Sexually Transmitted Disease: No HIV/AIDS: No Gastrointestinal: No Musculoskeletal: Yes Chronic Back Pain, Gout Endocrine: Yes Diabetes, Non-Insulin dep HEENT: No Loss of Vision: Bilateral Hearing Impairment: Denies Cancer: Yes Skin Psychosocial: Yes Sleep Difficulties, Anxiety Integumentary: No Blood Disorders: No Adverse Reaction/Blood Tranf: No Family Medical History FH: CAD (coronary artery disease) FH: Remedios Gehrig's disease Hypertension G8 BROTHER No Pertinent Family Hx Physical Exam Vital Signs Vital Signs - First Documented 03/13/20 04:05 Temp 37.0 Pulse 81 Resp 16 B/P (MAP) 101/66 (78) O2 Delivery Room Air Capillary Refill : Less Than 3 Seconds Height, Weight, BMI Height: 5'4.00" Weight: 200lbs. 0.0oz. [id number]; 36.00 BMI Method:Stated General Appearance: WD/WN, no apparent distress Hand: Right (RIGHT INDEX FINGER--VERY TINY PINPOINT PUNCTURE SITE ( 1 MM ) TO PALMAR ASPECT OF PIP JOINT. NO BLEEDING. NO DRAINAGE. NO STREAKS. NO EVIDENCE OF SECOND PUNCTURE SITE. MILD SWELLING AND ERYTHEMA TO PROXIMAL PHALANX. NO FLUCTUANCE. FULL ROM/SENSORY AND VASCULAR INTACT. 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 Referrals: MOR PIERRE DO (PCP/Family) Primary Care Physician Patient Instructions: Cellulitis (Skin Infection), Adult (DC), Diphtheria and Tetanus Toxoids, and Acellular Pertussis Vaccine, Wound Care (DC) Add. Discharge Instructions: SOAK IN WARM EPSOM SALTS 2-3 TIMES A DAY CLEAN TWICE A DAY WITH ANTIBACTERIAL SOAP AND WATER CONTINUE DOXYCYCLINE PRESCRIBED CONTINUE HYDROCODONE NEEDED FOR PAIN YOU MAY ALSO TAKE IBUPROFEN 800 MG 4 TIMES A DAY FOR PAIN FOLLOW UP WITH DR. PIERRE ON SUNDAY IF NO BETTER All discharge instructions reviewed with patient and/or family. Voiced understanding. Scripts Cephalexin (Cephalexin) 500 Mg Tablet 500 MG PO QID, #20 TAB 0 Refills Prov: HORTENCIA MORGAN DO 03/13/20 HORTENCIA MORGAN DO Mar 13, 2020 04:23
--- OUTSIDE RECORDS SUMMARY | 2020-03-13 04:24 | XMS REPORT | CCD ---
Author Author Gale Appiah D.O. 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 Name Role Phone María Elena Appiah D.O., PP Unavailable CCM Unavailable Summary Purpose Interface Exchange Insurance Providers Payer name Policy type / Coverage type Covered alliance party ID Effective Begin Date Effective End Date [facility] Commercial Insurance [id number] Unknown Family History Family History data not found Social History Social History Element Codes Description Effective Dates Tobacco history SNOMED CT: [id number] Never smoker 05/22/2011 Allergies, Adverse Reactions, Alerts [...] Start Date Stop Date Status Fill Instructions Keflex 500 mg capsule RxNorm: 009730 1 Capsule(s) Oral two time s a day 02/12/2020 02/19/2020 Active Lipitor 10 mg tablet RxNorm: 522971 TAKE ONE TABLET BY MOUTH DAILY 01/23/2020 No Stop Date Active Januvia 100 mg tablet RxNorm: 001761 TAKE ONE TABLET BY MOUTH DAILY 01/22/2020 No Stop Date Active gabapentin 300 mg capsule RxNorm: 912651 TAKE ONE CAPSU LE BY MOUTH EVERY NIGHT AT BEDTIME 01/22/2020 No Stop Date Active allopurinol 300 mg tablet RxNorm: 485049 TAKE ONE TABLET BY LOPEZ TH DAILY 01/22/2020 No Stop Date Active Klor-Con 8 mEq tablet,extended release RxNorm: 269843 T FARRUKH ONE TABLET BY MOUTH TWICE A DAY 01/22/2020 No Stop Date Active doxepin 25 mg capsule RxNorm: 9432075 TAKE ONE CAPSULE B Y MOUTH EVERY NIGHT AT BEDTIME NEEDED FOR SLEEP 01/22/2020 No Stop Date Active glimepiride 4 mg tablet RxNorm: 238488 1 Tablet(s) Oral two times a day replaces 2mg dose 01/13/2020 04/12/2020 Active lisinopril 40 mg tablet RxNorm: 315800 1 Tablet(s) Oral QD repl aces 20mg dose 01/13/2020 04/12/2020 Active hydrocodone 10 mg-acetaminophen 325 mg tablet RxNorm: 288032 1-2 Tablet(s) Oral three times a day as needed for pain 01/12/2020 No Stop Date Active cyclobenzaprine 10 mg tablet RxNorm: 485606 TAKE ONE TA BLET BY MOUTH THREE TIMES A DAY NEEDED FOR MUSCLE SPASMS 01/05/2020 No Stop Date Active triamterene 75 mg-hydrochlorothiazide 50 mg tablet RxNorm: 3 24908 TAKE ONE TABLET BY MOUTH DAILY 12/29/2019 No Stop Date Active Klor-Con 8 mEq tablet,extended release RxNorm: 426048 T FARRUKH ONE TABLET BY MOUTH TWICE A DAY 12/19/2019 01/21/2020 Inactive allopurinol 300 mg tablet RxNorm: 169647 TAKE ONE TABLET BY LOPEZ TH DAILY 12/19/2019 01/21/2020 Inactive glimepiride 2 mg tablet RxNorm: 355711 TAKE ONE TABLET BY MOUTH TWICE A DAY 12/19/2019 01/12/2020 Inactive hydrocodone 10 mg-acetaminophen 325 mg tablet RxNorm: 574814 1-2 Tablet(s) Oral three times a day as needed for pain 12/10/2019 01/11/2020 Inactive Januvia 100 mg tablet RxNorm: 714923 1 Tablet(s) Oral QD 11/20/2019 0 11/20/2019 Inactive glimepiride 2 mg tablet RxNorm: 240698 1 Tablet(s) Oral two sawyer es a day 11/20/2019 12/18/2019 Inactive cyclobenzaprine 10 mg tablet RxNorm: 842664 TAKE ONE TA BLET BY MOUTH THREE TIMES A DAY NEEDED FOR MUSCLE SPASMS 11/17/2019 01/04/2020 Inactive doxepin 25 mg capsule RxNorm: 1230440 TAKE ONE CAPSULE B Y MOUTH EVERY NIGHT AT BEDTIME NEEDED FOR SLEEP 11/16/2019 01/21/2020 Inactive Klor-Con 8 mEq tablet,extended release RxNorm: 234744 T FARRUKH ONE TABLET BY MOUTH TWICE A DAY 11/16/2019 12/18/2019 Inactive hydrocodone 10 mg-acetaminophen 325 mg tablet RxNorm: 541749 1-2 Tablet(s) Oral three times a day as needed for pain 11/10/2019 12/09/2019 Inactive cyclobenzaprine 10 mg tablet RxNorm: 270717 TAKE ONE TA BLET BY MOUTH THREE TIMES A DAY NEEDED FOR MUSCLE SPASMS 10/23/2019 11/16/2019 Inactive duloxetine 60 mg capsule,delayed release RxNorm: 967688 1 Capsu le(s) Oral QD 10/17/2019 04/13/2020 Active celecoxib 200 mg capsule RxNorm: 862152 1 Capsule(s) Or al two times a day as needed for pain 10/17/2019 01/14/2020 Inactive Singulair 10 mg tablet RxNorm: 064942 1 Tablet(s) Oral QD 10/17/2019 04/14/2020 Active metoprolol tartrate 100 mg tablet RxNorm: 888625 1 Tabl et(s) Oral two times a day 10/17/2019 04/13/2020 Active clonidine HCl 0.1 mg tablet RxNorm: 188268 1 Tablet(s) Oral fou r times a day 10/17/2019 04/13/2020 Active lisinopril 20 mg tablet RxNorm: 640513 1 Tablet(s) Oral QD 10/17/19 20 01/12/2020 Inactive gabapentin 300 mg capsule RxNorm: 155604 1 Capsule(s) O ral every night at bedtime 10/17/2019 01/15/2020 Inactive Klor-Con 8 mEq tablet,extended release RxNorm: 125701 1 Tablet(s) Oral two times a day 10/17/2019 11/15/2019 Inactive Januvia 100 mg tablet RxNorm: 513612 1 Tablet(s) Oral QD 10/17/2019 0 01/12/2020 Inactive Lipitor 10 mg tablet RxNorm: 581667 1 Tablet(s) Oral QD 10/17/2019 Inactive Steglatro 15 mg tablet RxNorm: 2385447 1 Tablet(s) Oral QD 10/17/19 20 02/12/2020 Inactive Glyxambi 25 mg-5 mg tablet RxNorm: 7911309 1 Tablet(s) Oral QD 01/202010/16/2019 Inactive Patient will bring in copay discount card as well Glyxambi 25 mg-5 mg tablet RxNorm: 6531469 1 Tablet(s) Oral QD 01/202010/14/2019 Inactive Patient will bring in copay discount card as well Keflex 500 mg capsule RxNorm: 390749 1 Capsule(s) Oral two time s a day 10/07/2019 10/14/2019 Inactive Premarin 1.25 mg tablet RxNorm: 701556 1 Tablet(s) Oral QD 09/30/1906/25/2020 Active hydrocodone 10 mg-acetaminophen 325 mg tablet RxNorm: 565878 1-2 Tablet(s) Oral three times a day as needed for pain 09/30/2019 09/30/2019 Inactive baclofen 10 mg tablet RxNorm: 526892 TAKE ONE TABLET BY MOUTH THREE TIMES A DAY NEEDED 09/19/2019 No Stop Date Active gabapentin 300 mg capsule RxNorm: 727326 TAKE ONE CAPSU LE BY MOUTH EVERY NIGHT AT BEDTIME 09/19/2019 10/16/2019 Inactive Klor-Con 8 mEq tablet,extended release RxNorm: 252616 T FARRUKH ONE TABLET BY MOUTH TWICE A DAY 1 Tablet(s) Oral two times a day 09/19/2019 10/16/2019 Renu ctive hydrocodone 10 mg-acetaminophen 325 mg tablet RxNorm: 308801 1-2 Tablet(s) Oral three times a day as needed for pain 09/19/2019 09/29/2019 Inactive duloxetine 60 mg capsule,delayed release RxNorm: 904599 TAKE ONE CAPSULE BY MOUTH DAILY 09/11/2019 10/16/2019 Inactive Lipitor 10 mg tablet RxNorm: 142808 TAKE ONE TABLET BY MOUTH AT BEDTIME 09/11/2019 10/16/2019 Inactive lisinopril 20 mg tablet RxNorm: 460602 TAKE ONE TABLET BY MOUTH DAILY .... THIS REPLACE 10MG TABLETS 09/11/2019 10/16/2019 Inactive triamterene 75 mg-hydrochlorothiazide 50 mg tablet RxNorm: 3 03469 TAKE ONE TABLET BY MOUTH DAILY 09/11/2019 12/28/2019 Inactive allopurinol 300 mg tablet RxNorm: 361971 TAKE ONE TABLET BY LOPEZ TH DAILY 09/11/2019 12/18/2019 Inactive celecoxib 200 mg capsule RxNorm: 913143 TAKE ONE CAPSUL E BY MOUTH TWICE A DAY NEEDED FOR PAIN 09/11/2019 10/16/2019 Inactive clonidine HCl 0.1 mg tablet RxNorm: 865025 TAKE ONE TAB LET BY MOUTH FOUR TIMES A DAY 09/11/2019 10/16/2019 Inactive doxepin 25 mg capsule RxNorm: 8535187 1 Capsule(s) Oral every night at bedtime as needed for sleep 08/21/2019 11/15/2019 Inactive hydrocodone 10 mg-acetaminophen 325 mg tablet RxNorm: 653984 1-2 Tablet(s) PO TID 08/12/2019 09/29/2019 Inactive as needed for pa in - Previous quantity #240, will start dosing for #180 in April 2011 per Doctor Td. Medrol (Dustin) 4 mg tablets in a dose pack RxNorm: 605768 Tablet(s) Oral As Directed 07/21/2019 09/29/2019 Inactive Premarin 1.25 mg tablet RxNorm: 743800 1 Tablet(s) Oral QD 07/02/2009/29/2019 Inactive hydrocodone 10 mg-acetaminophen 325 mg tablet RxNorm: 274780 1-2 Tablet(s) PO TID 07/01/2019 08/11/2019 Inactive as needed for pa in - Previous quantity #240, will start dosing for #180 in April 2011 per Doctor Td. gabapentin 300 mg capsule RxNorm: 114428 1 Capsule(s) PO QHS 201809/18/2019 Inactive celecoxib 200 mg capsule RxNorm: 838750 1 Capsule(s) Or al two times a day as needed for pain 06/27/2019 06/27/2019 Inactive doxepin 25 mg capsule RxNorm: 5766367 TAKE ONE CAPSULE B Y MOUTH EVERY NIGHT AT BEDTIME NEEDED FOR SLEEP 06/24/2019 08/20/2019 Inactive Singulair 10 mg tablet RxNorm: 489125 TAKE ONE TABLET BY MOUTH JOSÉ Y 06/24/2019 10/16/2019 Inactive furosemide 40 mg tablet RxNorm: 285743 TAKE ONE TABLET BY MOUTH EVERY MORNING NEEDED FOR EDEMA . TAKE WITH POTASSIUM 06/24/2019 01/12/2020 Inactive lisinopril 20 mg tablet RxNorm: 358358 TAKE ONE TABLET BY MOUTH DAILY .... THIS REPLACE 10MG TABLETS 06/24/2019 09/10/2019 Inactive nystatin-triamcinolone 100,000 unit/g-0.1 % topical cream Rx Norm: 8789950 1 Application Topical two times a day 06/12/2019 06/19/2019 Inactive apply BID for 1 week nystatin-triamcinolone 100,000 unit/g-0.1 % topical cream Rx Norm: 7380838 1 Application Topical two times a day 06/12/2019 06/11/2019 Inactive apply BID for 1 week hydrocodone 10 mg-acetaminophen 325 mg tablet RxNorm: 909918 1-2 Tablet(s) PO QID as needed for pain MUST LAST 30 DAYS 05/28/2019 06/26/2019 Inactiv e (Response to an electronic controlled substance refill request - [facility] [id number]) baclofen 20 mg tablet RxNorm: 140015 1 Tablet(s) PO TID as needed for muscle spasm 05/19/2019 05/27/2019 Inactive gabapentin 300 mg capsule RxNorm: 676264 1 Capsule(s) PO QHS 201805/27/2019 Inactive lisinopril 20 mg tablet RxNorm: 337863 1 Tablet(s) PO Q D TAKE ONE TABLET BY MOUTH DAILY, REPLACES 10 MG DOSE 05/19/2019 06/23/2019 Inactive doxepin 25 mg capsule RxNorm: 3331334 TAKE ONE CAPSULE B Y MOUTH EVERY NIGHT AT BEDTIME NEEDED FOR SLEEP 05/16/2019 06/14/2019 Inactive lisinopril 20 mg tablet RxNorm: 604625 TAKE ONE TABLET BY MOUTH DAILY, REPLACES 10 MG DOSE 05/16/2019 05/18/2019 Inactive Singulair 10 mg tablet RxNorm: 055866 TAKE ONE TABLET BY MOUTH JOSÉ Y 05/16/2019 06/14/2019 Inactive gabapentin 300 mg capsule RxNorm: 761116 1 Capsule(s) PO QHS 201805/04/2019 Inactive estropipate 1.5 mg tablet RxNorm: 457736 1 Tablet(s) PO QD 05/05/2005/27/2019 Inactive estropipate 1.5 mg tablet RxNorm: 813739 1 Tablet(s) PO QD 05/05/2005/04/2019 Inactive gabapentin 300 mg capsule RxNorm: 051111 1 Capsule(s) PO QHS 201805/18/2019 Inactive hydrocodone 10 mg-acetaminophen 325 mg tablet RxNorm: 160243 1-2 Tablet(s) PO QID as needed for pain MUST LAST 30 DAYS 04/25/2019 05/24/2019 Inactiv e (Response to an electronic controlled substance refill request - RxReferenceNumber: [id number]) cyclobenzaprine 10 mg tablet RxNorm: 210793 TAKE ONE TA BLET BY MOUTH THREE TIMES A DAY NEEDED FOR MUSCLE SPASMS 04/24/2019 05/18/2019 Inactive metoprolol tartrate 100 mg tablet RxNorm: 559326 TAKE O NE TABLET BY MOUTH TWICE A DAY 04/24/2019 10/16/2019 Inactive Lyrica 75 mg capsule RxNorm: 182293 1 Capsule(s) PO QHS 03/25/2019 Inactive duloxetine 60 mg capsule,delayed release RxNorm: 171793 TAKE ONE CAPSULE BY MOUTH DAILY 03/21/2019 05/19/2019 Inactive triamterene 75 mg-hydrochlorothiazide 50 mg tablet RxNorm: 3 50084 TAKE ONE TABLET BY MOUTH DAILY 03/21/2019 05/19/2019 Inactive Klor-Con 8 mEq tablet,extended release RxNorm: 885961 T FARRUKH ONE TABLET BY MOUTH TWICE A DAY 03/21/2019 09/18/2019 Inactive Lipitor 10 mg tablet RxNorm: 137234 TAKE ONE TABLET BY MOUTH AT BEDTIME 03/21/2019 09/10/2019 Inactive clonidine HCl 0.1 mg tablet RxNorm: 109692 TAKE ONE TAB LET BY MOUTH FOUR TIMES A DAY 03/21/2019 05/19/2019 Inactive allopurinol 300 mg tablet RxNorm: 821157 TAKE ONE TABLET BY LOPEZ TH DAILY 03/21/2019 05/19/2019 Inactive hydrocodone 10 mg-acetaminophen 325 mg tablet RxNorm: 024271 1-2 Tablet(s) PO QID as needed for pain MUST LAST 30 DAYS 02/28/2019 03/29/2019 Inactiv e (Response to an electronic controlled substance refill request - RxReferenceNumber: [id number]) furosemide 40 mg tablet RxNorm: 276946 TAKE ONE TABLET BY MOUTH EVERY MORNING NEEDED FOR EDEMA . TAKE WITH POTASSIUM 02/21/2019 03/22/2019 Inactive cyclobenzaprine 10 mg tablet RxNorm: 774196 TAKE ONE TA BLET BY MOUTH THREE TIMES A DAY NEEDED FOR MUSCLE SPASMS 02/21/2019 04/21/2019 Inactive lisinopril 20 mg tablet RxNorm: 268936 TAKE ONE TABLET BY MOUTH DAILY, REPLACES 10 MG DOSE 02/21/2019 05/15/2019 Inactive doxepin 25 mg capsule RxNorm: 8232736 TAKE ONE CAPSULE B Y MOUTH EVERY NIGHT AT BEDTIME NEEDED FOR SLEEP 02/21/2019 05/15/2019 Inactive nystatin 100,000 unit/gram topical cream RxNorm: 885221 APPLY TO AFFECTED AREA(S) TWO TIMES A DAY 02/21/2019 03/22/2019 Inactive estradiol 1 mg tablet RxNorm: 006603 2 Tablet(s) PO QD replaces premarin 01/22/2019 05/04/2019 Inactive lisinopril 20 mg tablet RxNorm: 762116 TAKE ONE TABLET BY MOUTH DAILY, REPLACES 10 MG DOSE 01/20/2019 02/18/2019 Inactive cyclobenzaprine 10 mg tablet RxNorm: 297459 TAKE ONE TA BLET BY MOUTH THREE TIMES A DAY NEEDED FOR MUSCLE SPASMS 01/20/2019 02/18/2019 Inactive metoprolol tartrate 100 mg tablet RxNorm: 671512 TAKE O NE TABLET BY MOUTH TWICE A DAY 01/20/2019 02/18/2019 Inactive cyclobenzaprine 10 mg tablet RxNorm: 553405 TAKE ONE TA BLET BY MOUTH THREE TIMES A DAY NEEDED FOR MUSCLE SPASMS 12/19/2018 01/17/2019 Inactive lisinopril 20 mg tablet RxNorm: 694372 TAKE ONE TABLET BY MOUTH DAILY, REPLACES 10 MG DOSE 12/19/2018 01/17/2019 Inactive duloxetine 60 mg capsule,delayed release RxNorm: 967000 TAKE ONE CAPSULE BY MOUTH DAILY 12/19/2018 01/17/2019 Inactive Lipitor 10 mg tablet RxNorm: 341262 TAKE ONE TABLET BY MOUTH AT BEDTIME 12/19/2018 01/17/2019 Inactive cyclobenzaprine 10 mg tablet RxNorm: 048237 1 Tablet(s) PO TID as needed for muscle spasm 11/19/2018 12/18/2018 Inactive Singulair 10 mg tablet RxNorm: 026204 1 Tablet(s) PO QD 11/19/2018 Inactive lisinopril 20 mg tablet RxNorm: 224849 TAKE ONE TABLET BY MOUTH DAILY, REPLACES 10 MG DOSE 11/15/2018 12/18/2018 Inactive hydrocodone 10 mg-acetaminophen 325 mg tablet RxNorm: 232931 1-2 Tablet(s) PO QID as needed for pain MUST LAST 30 DAYS 11/13/2018 12/12/2018 Inactiv e (Response to an electronic controlled substance refill request - RxReferenceNumber: [id number]) nystatin 100,000 unit/gram topical cream RxNorm: 389527 APPLY TO AFFECTED AREA(S) TWO TIMES A DAY 10/23/2018 11/06/2018 Inactive lisinopril 20 mg tablet RxNorm: 879345 1 Tablet(s) PO QD replac es 10mg dose 10/18/2018 11/14/2018 Inactive hydrocodone 10 mg-acetaminophen 325 mg tablet RxNorm: 252360 1-2 Tablet(s) QID as needed for pain MUST LAST 30 DAYS 10/08/2018 11/06/2018 Inactive (Response to an electronic controlled substance refill request - RxReferenceNumber: [id number]) lisinopril 10 mg tablet RxNorm: 470810 1 Tablet(s) PO QD 10/03/2018 0 01/21/2019 Inactive Celebrex 200 mg capsule RxNorm: 029794 TAKE ONE CAPSULE BY MOUT H TWICE A DAY 09/30/2018 05/04/2019 Inactive cyclobenzaprine 10 mg tablet RxNorm: 473099 TAKE ONE TA BLET BY MOUTH THREE TIMES A DAY NEEDED FOR MUSCLE SPASMS 09/30/2018 11/18/2018 Inactive doxepin 25 mg capsule RxNorm: 0417547 TAKE ONE CAPSULE B Y MOUTH EVERY NIGHT AT BEDTIME NEEDED 09/05/2018 10/16/2018 Inactive omeprazole 40 mg capsule,delayed release RxNorm: 641200 TAKE ONE CAPSULE BY MOUTH DAILY 09/05/2018 01/21/2019 Inactive furosemide 40 mg tablet RxNorm: 720754 TAKE ONE TABLET BY MOUTH EVERY MORNING NEEDED FOR EDEMA . TAKE WITH POTASSIUM 09/05/2018 11/03/2018 Inactive phentermine 37.5 mg tablet RxNorm: 136034 1 Tablet(s) PO QAM 201701/21/2019 Inactive doxepin 25 mg capsule RxNorm: 5213878 1 Capsule(s) PO QH S as needed for sleep TAKE ONE CAPSULE BY MOUTH EVERY NIGHT AT BEDTIME NEEDED 08/27/2018 09/04/2018 Inactive Keflex 500 mg capsule RxNorm: 646729 1 Capsule(s) PO TID 08/09/2018 1 10/19/2017 Inactive Diflucan 100 mg tablet RxNorm: 126624 1 Tablet(s) PO QD 08/09/2018 Inactive Premarin 1.25 mg tablet RxNorm: 911097 2 Tablet(s) PO QD 08/09/2018 0 05/04/2019 Inactive Zofran ODT 4 mg disintegrating tablet RxNorm: 802105 1 Tablet(s) PO Q4H as needed for nausea 08/09/2018 01/21/2019 Inactive metoprolol tartrate 100 mg tablet RxNorm: 086258 TAKE O NE TABLET BY MOUTH TWICE A DAY 2018 10/04/2018 Inactive doxepin 25 mg capsule RxNorm: 8260974 TAKE ONE CAPSULE B Y MOUTH EVERY NIGHT AT BEDTIME NEEDED 2018 08/26/2018 Inactive cyclobenzaprine 10 mg tablet RxNorm: 278890 TAKE ONE TA BLET BY MOUTH THREE TIMES A DAY NEEDED FOR MUSCLE SPASMS 2018 09/29/2018 Inactive hydrocodone 10 mg-acetaminophen 325 mg tablet RxNorm: 408504 1-2 Tablet(s) QID as needed for pain MUST LAST 30 DAYS 07/29/2018 08/27/2018 Inactive (Response to an electronic controlled substance refill request - RxReferenceNumber: [id number]) nystatin 100,000 unit/gram topical powder RxNorm: 983697 Applic ation TOP BID 07/22/2018 08/04/2018 Inactive doxepin 25 mg capsule RxNorm: 1381453 1 Capsule(s) PO QHS as needed 07/22/2018 08/05/2018 Inactive triamterene 75 mg-hydrochlorothiazide 50 mg tablet RxNorm: 3 79064 TAKE ONE TABLET BY MOUTH DAILY 07/05/2018 10/02/2018 Inactive duloxetine 60 mg capsule,delayed release RxNorm: 099942 TAKE ONE CAPSULE BY MOUTH DAILY 07/05/2018 09/02/2018 Inactive Klor-Con 8 mEq tablet,extended release RxNorm: 479477 T FARRUKH ONE TABLET BY MOUTH TWICE A DAY 07/05/2018 10/02/2018 Inactive Lipitor 10 mg tablet RxNorm: 536345 TAKE ONE TABLET BY MOUTH AT BEDTIME 07/05/2018 09/02/2018 Inactive allopurinol 300 mg tablet RxNorm: 598883 TAKE ONE TABLET BY LOPEZ TH DAILY 07/05/2018 10/02/2018 Inactive clonidine HCl 0.1 mg tablet RxNorm: 908654 TAKE ONE TAB LET BY MOUTH FOUR TIMES A DAY 07/05/2018 10/02/2018 Inactive hydrocodone 10 mg-acetaminophen 325 mg tablet RxNorm: 025080 1-2 Tablet(s) QID as needed for pain MUST LAST 30 DAYS 06/28/2018 07/27/2018 Inactive (Response to an electronic controlled substance refill request - RxReferenceNumber: [id number]) MediHoney (calcium alginate-honey) 4" X 5" bandage RxNorm: 1 Application TOP QD 06/17/2018 06/26/2018 Inactive honey-hydrocolloid dressing 4" X 5" RxNorm: 1 Application TOP QD 06/17/2018 07/16/2018 Inactive furosemide 40 mg tablet RxNorm: 489098 TAKE ONE TABLET BY MOUTH EVERY MORNING NEEDED FOR EDEMA . TAKE WITH POTASSIUM 06/10/2018 07/09/2018 Inactive This is a refill request. hydrocodone 10 mg-acetaminophen 325 mg tablet RxNorm: 940031 1-2 Tablet(s) QID as needed for pain MUST LAST 30 DAYS 05/30/2018 06/27/2018 Inactive (Response to an electronic controlled substance refill request - RxReferenceNumber: [id number]) acyclovir 800 mg tablet RxNorm: 452470 1 Tablet(s) PO 5x day 201705/22/2018 Inactive Premarin 1.25 mg tablet RxNorm: 997827 1-2 Tablet(s) PO QD 05/15/20 18 07/13/2018 Inactive cyclobenzaprine 10 mg tablet RxNorm: 238252 1 Tablet(s) PO TID as needed for muscle spasm 05/09/2018 05/08/2018 Inactive Medrol (Dustin) 4 mg tablets in a dose pack RxNorm: 480301 Tablet(s) PO As Directed 05/02/2018 06/16/2018 Inactive hydrocodone 10 mg-acetaminophen 325 mg tablet RxNorm: 704275 1-2 Tablet(s) QID as needed for pain MUST LAST 30 DAYS 04/30/2018 05/29/2018 Inactive (Response to an electronic controlled substance refill request - RxReferenceNumber: [id number]) duloxetine 60 mg capsule,delayed release RxNorm: 307135 TAKE ONE CAPSULE BY MOUTH DAILY 04/16/2018 05/15/2018 Inactive Celebrex 200 mg capsule RxNorm: 103089 TAKE ONE CAPSULE BY MOUT H TWICE A DAY 04/16/2018 06/14/2018 Inactive Singulair 10 mg tablet RxNorm: 423788 TAKE ONE TABLET BY MOUTH JOSÉ Y 04/16/2018 11/19/2018 Inactive Lipitor 10 mg tablet RxNorm: 653542 TAKE ONE TABLET BY MOUTH AT BEDTIME 04/16/2018 05/15/2018 Inactive hydrocodone 10 mg-acetaminophen 325 mg tablet RxNorm: 737615 1-2 Tablet(s) QID as needed for pain MUST LAST 30 DAYS 03/29/2018 04/27/2018 Inactive (Response to an electronic controlled substance refill request - RxReferenceNumber: [id number]) cyclobenzaprine 10 mg tablet RxNorm: 608866 1 Tablet(s) PO TID as needed for muscle spasm 03/18/2018 05/09/2018 Inactive omeprazole 40 mg capsule,delayed release RxNorm: 728076 1 Capsu le(s) PO QD 02/26/2018 08/24/2018 Inactive hydrocodone 10 mg-acetaminophen 325 mg tablet RxNorm: 922928 1-2 Tablet(s) QID as needed for pain MUST LAST 30 DAYS 02/26/2018 03/27/2018 Inactive (Response to an electronic controlled substance refill request - RxReferenceNumber: [id number]) metoprolol tartrate 100 mg tablet RxNorm: 741165 1 Tablet(s) PO BID 02/18/2018 08/05/2018 Inactive Lyrica 75 mg capsule RxNorm: 755883 1 Capsule(s) PO QHS 01/30/2018 Inactive phentermine 37.5 mg tablet RxNorm: 619692 1 Tablet(s) PO QAM 201706/16/2018 Inactive hydrocodone 10 mg-acetaminophen 325 mg tablet RxNorm: 328308 1-2 Tablet(s) QID as needed for pain MUST LAST 30 DAYS 01/29/2018 02/25/2018 Inactive (Response to an electronic controlled substance refill request - RxReferenceNumber: [id number]) Klor-Con 8 mEq tablet,extended release RxNorm: 996979 1 Tablet( s) PO BID 01/14/2018 07/04/2018 Inactive allopurinol 300 mg tablet RxNorm: 692192 1 Tablet(s) PO QD 01/15/2007/04/2018 Inactive Lipitor 10 mg tablet RxNorm: 024565 1 Tablet(s) PO QHS 01/14/201812/2017 Inactive triamterene 75 mg-hydrochlorothiazide 50 mg tablet RxNorm: 3 37062 1 Tablet(s) PO QD 01/14/2018 07/04/2018 Inactive hydrocodone 10 mg-acetaminophen 325 mg tablet RxNorm: 433423 1-2 Tablet(s) QID as needed for pain MUST LAST 30 DAYS 12/27/2017 01/25/2018 Inactive (Response to an electronic controlled substance refill request - RxReferenceNumber: [id number]) Onglyza 5 mg tablet RxNorm: 184521 1 Tablet(s) PO QD 12/18/201701/29 Inactive metformin 500 mg tablet RxNorm: 278112 1 Tablet(s) PO BID 12/11/2017 12/10/2017 Inactive metformin 500 mg tablet RxNorm: 978476 1 Tablet(s) PO BID 12/11/2017 12/17/2017 Inactive furosemide 40 mg tablet RxNorm: 740326 1 Tablet(s) PO Q AM prn edema--take with potassium 12/11/2017 06/08/2018 Inactive cyclobenzaprine 10 mg tablet RxNorm: 750914 1 Tablet(s) PO TID as needed for muscle spasm 12/11/2017 03/18/2018 Inactive hydrocodone 10 mg-acetaminophen 325 mg tablet RxNorm: 317766 1-2 Tablet(s) QID as needed for pain MUST LAST 30 DAYS 10/23/2017 11/21/2017 Inactive (Response to an electronic controlled substance refill request - RxReferenceNumber: [id number]) Lipitor 10 mg tablet RxNorm: 381862 1 Tablet(s) PO QHS 10/16/201703/2018 Inactive cyclobenzaprine 10 mg tablet RxNorm: 003647 1 Tablet(s) PO TID as needed for muscle spasm 10/09/2017 12/10/2017 Inactive hydroxyzine HCl 25 mg tablet RxNorm: 753772 1 Tablet(s) PO BID as needed for anxiety 09/20/2017 01/29/2018 Inactive Effexor XR 75 mg capsule,extended release RxNorm: 774271 1 Caps ule(s) PO QD 09/20/2017 01/29/2018 Inactive metoprolol tartrate 100 mg tablet RxNorm: 357980 1 Tablet(s) PO BID 08/20/2017 02/18/2018 Inactive baclofen 20 mg tablet RxNorm: 141031 1 Tablet(s) PO TID as needed for muscle spasm 08/20/2017 01/21/2019 Inactive clonidine HCl 0.1 mg tablet RxNorm: 502751 1 Tablet(s) PO QID 08/2005/16/2018 Inactive Seroquel 25 mg tablet RxNorm: 168421 1 Tablet(s) PO QHS 08/17/2017 Inactive Seroquel 25 mg tablet RxNorm: 588205 1 Tablet(s) PO QHS 08/17/2017 Inactive Diflucan 100 mg tablet RxNorm: 010503 TAKE ONE TABLET BY MOUTH JOSÉ Y 07/25/2017 08/07/2017 Inactive hydrocodone 10 mg-acetaminophen 325 mg tablet RxNorm: 253639 1-2 Tablet(s) QID as needed for pain MUST LAST 30 DAYS 07/19/2017 08/17/2017 Inactive (Response to an electronic controlled substance refill request - RxReferenceNumber: [id number]) clindamycin 300 mg capsule RxNorm: 639832 1 Capsule(s) PO TID 07/1907/28/2017 Inactive clotrimazole-betamethasone 1 %-0.05 % topical cream RxNorm: 045086 Application TOP BID to elbow rash 07/19/2017 06/16/2018 Inactive Singulair 10 mg tablet RxNorm: 279359 Tablet(s) TAKE ONE TABLET BY MOUTH DAILY 07/18/2017 04/13/2018 Inactive triamterene 75 mg-hydrochlorothiazide 50 mg tablet RxNorm: 3 76688 1 Tablet(s) PO QD 07/18/2017 01/14/2018 Inactive Celebrex 200 mg capsule RxNorm: 850131 Capsule(s) TAKE ONE CAPSULE BY MOUTH TWICE A DAY 07/18/2017 10/15/2017 Inactive hydrocodone 10 mg-acetaminophen 325 mg tablet RxNorm: 613228 1-2 Tablet(s) QID as needed for pain MUST LAST 30 DAYS 06/19/2017 07/18/2017 Inactive (Response to an electronic controlled substance refill request - RxReferenceNumber: [id number]) hydrocodone 10 mg-acetaminophen 325 mg tablet RxNorm: 301988 1-2 Tablet(s) QID as needed for pain MUST LAST 30 DAYS 06/19/2017 06/18/2017 Inactive (Response to an electronic controlled substance refill request - RxReferenceNumber: [id number]) baclofen 20 mg tablet RxNorm: 782749 1 Tablet(s) PO TID as needed for muscle spasm 06/18/2017 08/20/2017 Inactive Medrol (Dustin) 4 mg tablets in a dose pack RxNorm: 395680 Tablet(s) PO As Directed 06/05/2017 07/18/2017 Inactive omeprazole 40 mg capsule,delayed release RxNorm: 149309 1 Capsu le(s) PO QD 04/20/2017 10/16/2017 Inactive Premarin 1.25 mg tablet RxNorm: 455554 1-2 Tablet(s) PO QD 04/11/20 17 05/15/2018 Inactive duloxetine 60 mg capsule,delayed release RxNorm: 584488 1 Capsu le(s) PO QD 04/11/2017 09/19/2017 Inactive furosemide 40 mg tablet RxNorm: 285275 1 Tablet(s) PO Q AM prn edema--take with potassium 04/11/2017 12/11/2017 Inactive Klor-Con 8 mEq tablet,extended release RxNorm: 329686 1 Tablet( s) PO BID 04/11/2017 01/14/2018 Inactive Lipitor 10 mg tablet RxNorm: 244343 1 Tablet(s) PO QHS 04/11/201702/2018 Inactive amlodipine 5 mg-benazepril 20 mg capsule RxNorm: 482951 1 Capsu le(s) PO QD 04/11/2017 01/29/2018 Inactive allopurinol 300 mg tablet RxNorm: 876608 1 Tablet(s) PO QD 04/11/20 17 01/14/2018 Inactive clonidine HCl 0.1 mg tablet RxNorm: 619001 1 Tablet(s) PO QID 04/0508/19/2017 Inactive baclofen 20 mg tablet RxNorm: 281846 1 Tablet(s) PO TID as needed for muscle spasm 04/02/2017 06/18/2017 Inactive Premarin 1.25 mg tablet RxNorm: 122808 1-2 Tablet(s) PO QD 03/20/20 17 04/10/2017 Inactive hydrocodone 10 mg-acetaminophen 325 mg tablet RxNorm: 702752 1-2 Tablet(s) QID as needed for pain MUST LAST 30 DAYS 03/14/2017 01/21/2019 Inactive (Response to an electronic controlled substance refill request - RxReferenceNumber: [id number]) metoprolol tartrate 100 mg tablet RxNorm: 764724 1 Tablet(s) PO BID 02/12/2017 08/20/2017 Inactive hydrocodone 10 mg-acetaminophen 325 mg tablet RxNorm: 251167 1-2 Tablet(s) QID as needed for pain MUST LAST 30 DAYS 02/08/2017 03/09/2017 Inactive (Response to an electronic controlled substance refill request - RxReferenceNumber: [id number]) metoprolol tartrate 100 mg tablet RxNorm: 939676 TAKE O NE TABLET BY MOUTH TWICE A DAY 01/11/2017 02/12/2017 Inactive metoprolol tartrate 100 mg tablet RxNorm: 301666 1 Tablet(s) PO BID 12/18/2016 12/17/2016 Inactive metoprolol tartrate 100 mg tablet RxNorm: 259684 1 Tablet(s) PO BID 12/18/2016 01/10/2017 Inactive furosemide 40 mg tablet RxNorm: 323365 1 Tablet(s) PO Q AM prn edema--take with potassium 12/13/2016 02/10/2017 Inactive amitriptyline 100 mg tablet RxNorm: 207270 1 Tablet(s) PO QHS 11/2812/12/2016 Inactive baclofen 20 mg tablet RxNorm: 430063 1 Tablet(s) PO TID as needed for muscle spasm 11/14/2016 04/01/2017 Inactive triamterene 75 mg-hydrochlorothiazide 50 mg tablet RxNorm: 3 00697 1 Tablet(s) PO QD 11/14/2016 11/13/2016 Inactive metolazone 2.5 mg tablet RxNorm: 453614 TAKE ONE TABLET BY MOUTH DAILY NEEDED FOR EDEMA 11/14/2016 12/12/2016 Inactive triamterene 75 mg-hydrochlorothiazide 50 mg tablet RxNorm: 3 72921 1 Tablet(s) PO QD 11/14/2016 07/18/2017 Inactive amitriptyline 50 mg tablet RxNorm: 923228 TAKE ONE TABL ET BY MOUTH AT BEDTIME NEEDED FOR SLEEP 11/14/2016 11/27/2016 Inactive Cymbalta 60 mg capsule,delayed release RxNorm: 621429 1 Capsule (s) PO QHS 11/14/2016 12/12/2016 Inactive clonidine HCl 0.1 mg tablet RxNorm: 972790 1 Tablet(s) PO QID 11/1304/04/2017 Inactive amitriptyline 50 mg tablet RxNorm: 689495 1 Tablet(s) P O QHS as needed for sleep 11/01/2016 11/27/2016 Inactive duloxetine 60 mg capsule,delayed release RxNorm: 285078 TAKE ONE CAPSULE BY MOUTH DAILY 10/20/2016 01/17/2017 Inactive allopurinol 300 mg tablet RxNorm: 478852 TAKE ONE TABLET BY LOPEZ TH DAILY 10/20/2016 01/16/2017 Inactive Lyrica 75 mg capsule RxNorm: 176647 TAKE ONE CAPSULE BY MOUTH EVERY NIGHT AT BEDTIME 10/20/2016 12/10/2016 Inactive Klor-Con 8 mEq tablet,extended release RxNorm: 881656 T FARRUKH ONE TABLET BY MOUTH TWICE A DAY 10/20/2016 01/17/2017 Inactive Celebrex 200 mg capsule RxNorm: 873753 TAKE ONE CAPSULE BY MOUT H TWICE A DAY 10/20/2016 07/18/2017 Inactive Bystolic 10 mg tablet RxNorm: 643521 TAKE ONE TABLET BY MOUTH EVERY NIGHT AT BEDTIME 10/20/2016 12/17/2016 Inactive amlodipine 5 mg-benazepril 20 mg capsule RxNorm: 693962 TAKE ONE CAPSULE BY MOUTH EVERY NIGHT AT BEDTIME -- TO REPLACE AMLODOPINE 10/20/20162016 Inactive Lipitor 10 mg tablet RxNorm: 175240 TAKE ONE TABLET BY MOUTH EVERY NIGHT AT BEDTIME 10/20/2016 01/17/2017 Inactive alprazolam 0.5 mg tablet RxNorm: 601893 3 Tablet(s) PO QHS as needed for sleep/anxiety 09/20/2016 10/31/2016 Inactive Tamiflu 75 mg capsule RxNorm: 525578 1 Capsule(s) PO QD 09/19/2016 Inactive Lyrica 75 mg capsule RxNorm: 830698 1 Capsule(s) PO QHS 09/19/2016 Inactive prednisone 20 mg tablet RxNorm: 677624 1 Tablet(s) PO QD 08/10/2016 1 10/17/2015 Inactive doxycycline hyclate 100 mg capsule RxNorm: 3918671 1 Capsule(s) PO BID 08/10/2016 08/19/2016 Inactive Medrol (Dustin) 4 mg tablets in a dose pack RxNorm: 612285 Tablet(s) PO As Directed 07/31/2016 08/22/2016 Inactive Singulair 10 mg tablet RxNorm: 974411 TAKE ONE TABLET BY MOUTH JOSÉ Y 07/27/2016 07/18/2017 Inactive hydrocodone 10 mg-acetaminophen 325 mg tablet RxNorm: 759507 1-2 Tablet(s) QID as needed for pain MUST LAST 30 DAYS 07/26/2016 08/24/2016 Inactive (Response to an electronic controlled substance refill request - RxReferenceNumber: [id number]) alprazolam 0.5 mg tablet RxNorm: 035163 3 Tablet(s) PO QHS as needed for anxiety or sleep 07/26/2016 09/20/2016 Inactive clindamycin 300 mg capsule RxNorm: 360269 1 Capsule(s) PO TID 07/2007/29/2016 Inactive Diflucan 100 mg tablet RxNorm: 349332 1 Tablet(s) PO QD 07/20/2016 Inactive Levaquin 500 mg tablet RxNorm: 887993 1 Tablet(s) PO QD 07/17/2016 Inactive Levaquin 500 mg tablet RxNorm: 224651 1 Tablet(s) PO QD 07/10/2016 Inactive Levaquin 500 mg tablet RxNorm: 271408 1 Tablet(s) PO QD 07/10/2016 Inactive mupirocin 2 % topical ointment RxNorm: 253479 TOP Apply topically to affected areas twice daily 07/06/2016 09/18/2016 Inactive Singulair 10 mg tablet RxNorm: 326369 TAKE ONE TABLET BY MOUTH JOSÉ Y 06/21/2016 01/21/2019 Inactive alprazolam 0.5 mg tablet RxNorm: 607824 TAKE THREE TABL ETS BY MOUTH AT BEDTIME NEEDED FOR SLEEP OR STRESS 05/22/2016 06/20/2016 Inactive triamterene 75 mg-hydrochlorothiazide 50 mg tablet RxNorm: 3 52754 1 Tablet(s) PO QD 04/26/2016 01/12/2020 Inactive Premarin 1.25 mg tablet RxNorm: 633237 1-2 Tablet(s) PO QD 04/26/20 16 03/20/2017 Inactive Klor-Con 8 mEq tablet,extended release RxNorm: 163717 1 Tablet( s) PO BID 04/26/2016 10/19/2016 Inactive Celebrex 200 mg capsule RxNorm: 300873 1 Capsule(s) PO BID TAKE ONE CAPSULE BY MOUTH EVERY DAY 04/26/2016 10/19/2016 Inactive Lipitor 10 mg tablet RxNorm: 317012 1 Tablet(s) PO QHS 04/26/201605/2017 Inactive allopurinol 300 mg tablet RxNorm: 043394 1 Tablet(s) PO QD TAKE ONE TABLET BY MOUTH EVERY DAY 04/26/2016 10/19/2016 Inactive amlodipine 5 mg-benazepril 20 mg capsule RxNorm: 322731 1 Capsule(s) PO QHS replaces amlodopine 04/26/2016 10/19/2016 Inactive duloxetine 60 mg capsule,delayed release RxNorm: 991841 1 Capsu le(s) PO QD 04/26/2016 10/19/2016 Inactive Bystolic 10 mg tablet RxNorm: 255827 1 Tablet(s) PO QHS 04/26/2016 Inactive Singulair 10 mg tablet RxNorm: 829963 1 Tablet(s) PO QD TAKE ONE TABLET BY MOUTH DAILY 04/26/2016 06/20/2016 Inactive clonidine HCl 0.1 mg tablet RxNorm: 131351 1 Tablet(s) PO QID 04/2610/22/2016 Inactive hydrocodone 10 mg-acetaminophen 325 mg tablet RxNorm: 709001 1-2 Tablet(s) QID as needed for pain TAKE ONE TO TWO TABLETS BY MOUTH FOUR TIMES A DAY . MUST LAST 30 DAYS 03/31/2016 04/29/2016 Inactive (Response to an electronic controlled substance refill request - RxReferenceNumber: [id number]) Klor-Con 8 mEq tablet,extended release RxNorm: 646426 T FARRUKH ONE TABLET BY MOUTH TWICE A DAY 03/24/2016 09/29/2019 Inactive prednisone 20 mg tablet RxNorm: 620371 1 Tablet(s) PO QD 03/09/2016 0 03/08/2016 Inactive prednisone 20 mg tablet RxNorm: 713013 1 Tablet(s) PO QD 03/09/2016 0 03/13/2016 Inactive alprazolam 0.5 mg tablet RxNorm: 775020 3 Tablet(s) PO QHS as needed for sleep/stress 03/02/2016 01/21/2019 Inactive mupirocin 2 % topical ointment RxNorm: 445174 TOP twice daily to affected areas of face and neck 02/21/2016 04/25/2016 Inactive clonidine HCl 0.1 mg tablet RxNorm: 005619 TAKE ONE TAB LET BY MOUTH FOUR TIMES A DAY 02/15/2016 09/29/2019 Inactive clonidine HCl 0.1 mg tablet RxNorm: 959644 1 Tablet(s) PO QID 02/1404/25/2016 Inactive Premarin 1.25 mg tablet RxNorm: 281102 1-2 Tablet(s) PO QD 02/15/20 16 03/15/2016 Inactive Klor-Con 8 mEq tablet,extended release RxNorm: 441469 T FARRUKH ONE TABLET BY MOUTH TWICE A DAY 02/15/2016 03/15/2016 Inactive potassium chloride ER 20 mEq tablet,extended release(part/cr yst) RxNorm: 370959 2 Tablet(s) PO BID 02/15/2016 03/15/2016 Inactive Macrobid 100 mg capsule RxNorm: 757223 1 Capsule(s) PO BID 01/24/2001/30/2016 Inactive prednisone 20 mg tablet RxNorm: 741496 Take 3tabs PO QD x 2 days, then 2 tabs PO QD x 2 days, then 1 tab PO QD x 2 days, then 1/2 tab PO QDy x 2 days 12/23/2015 04/25/2016 Inactive Klor-Con 8 mEq tablet,extended release RxNorm: 638485 T FARRUKH ONE TABLET BY MOUTH TWICE A DAY 12/20/2015 02/14/2016 Inactive alprazolam 1 mg tablet RxNorm: 341473 1 1/2 Tablet(s) PO QHS 201501/23/2016 Inactive nystatin 100,000 unit/gram topical cream RxNorm: 533861 APPLY TO AFFECTED AREA(S) TWO TIMES A DAY 11/30/2015 12/14/2015 Inactive Singulair 10 mg tablet RxNorm: 877514 TAKE ONE TABLET BY MOUTH JOSÉ Y 11/18/2015 04/25/2016 Inactive allopurinol 300 mg tablet RxNorm: 137623 1 Tablet(s) PO QD TAKE ONE TABLET BY MOUTH EVERY DAY 10/26/2015 04/22/2016 Inactive Singulair 10 mg tablet RxNorm: 971490 TAKE ONE TABLET BY MOUTH JOSÉ Y 10/26/2015 11/17/2015 Inactive duloxetine 60 mg capsule,delayed release RxNorm: 720863 1 Capsu le(s) PO QD 10/26/2015 04/22/2016 Inactive triamterene 75 mg-hydrochlorothiazide 50 mg tablet RxNorm: 3 73717 1 Tablet(s) PO QD 10/26/2015 11/14/2016 Inactive potassium chloride ER 20 mEq tablet,extended release(part/cr yst) RxNorm: 883352 2 Tablet(s) PO BID 10/26/2015 02/14/2016 Inactive Lipitor 10 mg tablet RxNorm: 045843 1 Tablet(s) PO QHS 10/26/2015 Inactive amlodipine 5 mg-benazepril 20 mg capsule RxNorm: 221424 1 Capsule(s) PO QHS replaces amlodopine 10/26/2015 04/22/2016 Inactive Bystolic 10 mg tablet RxNorm: 424379 1 Tablet(s) PO QHS 10/26/2015 Inactive amlodipine 5 mg-benazepril 20 mg capsule RxNorm: 835198 1 Capsule(s) PO QHS replaces amlodopine 10/06/2015 10/25/2015 Inactive amlodipine 5 mg tablet RxNorm: 928511 1 Tablet(s) PO QHS 09/30/2015 0 04/25/2016 Inactive metolazone 2.5 mg tablet RxNorm: 817045 TAKE ONE TABLET BY MOUTH DAILY NEEDED FOR EDEMA 09/30/2015 01/21/2019 Inactive duloxetine 60 mg capsule,delayed release RxNorm: 665553 1 Capsu le(s) PO QD 09/30/2015 10/25/2015 Inactive cephalexin 500 mg capsule RxNorm: 501597 1 Capsule(s) PO BID 201509/23/2015 Inactive mupirocin 2 % topical ointment RxNorm: 285754 TOP twice daily to affected areas of face and neck 09/14/2015 02/20/2016 Inactive baclofen 20 mg tablet RxNorm: 355585 1 Tablet(s) PO TID as needed for muscle spasm 09/01/2015 11/14/2016 Inactive clonidine HCl 0.1 mg tablet RxNorm: 303249 1 Tablet(s) PO QID 09/0102/14/2016 Inactive alprazolam 1 mg tablet RxNorm: 882369 1 1/2 Tablet(s) PO QHS 201409/09/2015 Inactive baclofen 20 mg tablet RxNorm: 540170 1 Tablet(s) PO TID as needed for muscle spasm 07/23/2015 09/01/2015 Inactive omeprazole 40 mg capsule,delayed release RxNorm: 323590 1 Capsu le(s) PO QD 07/23/2015 04/25/2016 Inactive alprazolam 1 mg tablet RxNorm: 931482 1 1/2 Tablet(s) PO QHS 201408/10/2015 Inactive Bystolic 10 mg tablet RxNorm: 871185 1 Tablet(s) PO BID 06/24/2015 Inactive allopurinol 300 mg tablet RxNorm: 040118 1 Tablet(s) PO QD TAKE ONE TABLET BY MOUTH EVERY DAY 06/23/2015 10/20/2015 Inactive alprazolam 1 mg tablet RxNorm: 497176 1 1/2 Tablet(s) PO QHS 201407/06/2015 Inactive clonidine HCl 0.1 mg tablet RxNorm: 246731 1 Tablet(s) PO QID 06/0209/01/2015 Inactive clonidine HCl 0.1 mg tablet RxNorm: 853493 1 Tablet(s) PO QID 06/0206/01/2015 Inactive Cymbalta 60 mg capsule,delayed release RxNorm: 522614 1 Capsule (s) PO QHS 06/02/2015 08/30/2015 Inactive Cymbalta 60 mg capsule,delayed release RxNorm: 840096 1 Capsule (s) PO QHS 06/02/2015 06/01/2015 Inactive clonidine HCl 0.1 mg tablet RxNorm: 143425 1 Tablet(s) PO TID 05/3106/01/2015 Inactive replaces 0.2mg dose metolazone 2.5 mg tablet RxNorm: 593586 TAKE ONE TABLET BY MOUTH DAILY NEEDED FOR EDEMA 05/21/2015 06/19/2015 Inactive Singulair 10 mg tablet RxNorm: 535362 TAKE ONE TABLET BY MOUTH JOSÉ Y 05/21/2015 10/17/2015 Inactive Cymbalta 30 mg capsule,delayed release RxNorm: 093335 1 Capsule (s) PO QHS 05/20/2015 11/14/2016 Inactive betamethasone valerate 0.1 % topical cream RxNorm: 497523 Appli cation TOP BID 05/10/2015 04/25/2016 Inactive Bactroban 2 % topical ointment RxNorm: 492504 Application TOP BID 0 05/10/2015 06/20/2015 Inactive baclofen 20 mg tablet RxNorm: 721646 1 Tablet(s) PO TID as needed 0 04/26/2015 07/23/2015 Inactive Lipitor 10 mg tablet RxNorm: 704534 1 Tablet(s) PO QHS 04/26/201508/2016 Inactive clonidine HCl 0.1 mg tablet RxNorm: 255084 1 Tablet(s) PO TID 04/2605/30/2015 Inactive replaces 0.2mg dose Klor-Con 8 mEq tablet,extended release RxNorm: 372072 1 Tablet( s) PO BID 04/26/2015 04/25/2016 Inactive metolazone 2.5 mg tablet RxNorm: 548130 1 Tablet(s) PO QD as ne eded for edema 04/26/2015 04/25/2015 Inactive triamterene 75 mg-hydrochlorothiazide 50 mg tablet RxNorm: 3 94372 1 Tablet(s) PO QD 04/26/2015 10/22/2015 Inactive Premarin 1.25 mg tablet RxNorm: 054022 1-2 Tablet(s) PO QD 04/26/20 15 10/22/2015 Inactive Bystolic 10 mg tablet RxNorm: 641325 1 Tablet(s) PO QAM TAKE ONE TABLET BY MOUTH EVERY MORNING 04/23/2015 06/23/2015 Inactive clonidine HCl 0.1 mg tablet RxNorm: 608772 1 Tablet(s) PO TID 03/2304/25/2015 Inactive replaces 0.2mg dose nystatin 100,000 unit/gram topical cream RxNorm: 499386 Applica tion TOP BID 03/23/2015 06/20/2015 Inactive baclofen 20 mg tablet RxNorm: 939532 1 Tablet(s) PO TID as needed 0 03/23/2015 04/25/2015 Inactive Premarin 1.25 mg tablet RxNorm: 297043 1-2 Tablet(s) PO QD 03/23/20 15 04/25/2015 Inactive Klor-Con 8 mEq tablet,extended release RxNorm: 293620 1 Tablet( s) PO BID 03/23/2015 04/25/2015 Inactive cefdinir 300 mg capsule RxNorm: 201096 2 Capsule(s) PO QD 03/16/2015 03/25/2015 Inactive baclofen 20 mg tablet RxNorm: 560857 1 Tablet(s) PO TID as needed 0 03/02/2015 03/22/2015 Inactive allopurinol 300 mg tablet RxNorm: 247315 1 Tablet(s) PO QD TAKE ONE TABLET BY MOUTH EVERY DAY 02/22/2015 05/22/2015 Inactive Klor-Con M20 mEq tablet,extended release RxNorm: 900757 2 Tablet(s) PO BID to use with lasix 02/22/2015 06/20/2015 Inactive clonidine HCl 0.1 mg tablet RxNorm: 168910 1 Tablet(s) PO TID 02/1903/22/2015 Inactive replaces 0.2mg dose Lipitor 10 mg tablet RxNorm: 457996 1 Tablet(s) PO QHS 01/20/201506/2015 Inactive Lipitor 10 mg tablet RxNorm: 786237 1 Tablet(s) PO QHS 01/20/2015 Inactive Singulair 10 mg tablet RxNorm: 860094 1 Tablet(s) PO QD TAKE ONE TABLET BY MOUTH EVERY DAY 11/20/2014 05/18/2015 Inactive Lipitor 10 mg tablet RxNorm: 995946 1 Tablet(s) PO QHS 11/20/201408/2015 Inactive allopurinol 300 mg tablet RxNorm: 590179 1 Tablet(s) PO QD TAKE ONE TABLET BY MOUTH EVERY DAY 11/20/2014 02/16/2015 Inactive Bystolic 10 mg tablet RxNorm: 457835 1 Tablet(s) PO QAM TAKE ONE TABLET BY MOUTH EVERY MORNING 11/20/2014 04/22/2015 Inactive Klor-Con 8 mEq tablet,extended release RxNorm: 581199 1 Tablet( s) PO BID 11/20/2014 02/17/2015 Inactive baclofen 20 mg tablet RxNorm: 728884 1 Tablet(s) PO TID as needed 0 11/20/2014 01/21/2019 Inactive baclofen 20 mg tablet RxNorm: 007721 1 Tablet(s) PO TID as needed 0 10/27/2014 11/19/2014 Inactive baclofen 20 mg tablet RxNorm: 355751 1 Tablet(s) PO TID as needed 0 10/26/2014 03/01/2015 Inactive allopurinol 300 mg tablet RxNorm: 968805 1 Tablet(s) PO QD TAKE ONE TABLET BY MOUTH EVERY DAY 10/26/2014 11/20/2014 Inactive Bystolic 10 mg tablet RxNorm: 235199 1 Tablet(s) PO QAM TAKE ONE TABLET BY MOUTH EVERY MORNING 10/26/2014 11/20/2014 Inactive clonidine HCl 0.1 mg tablet RxNorm: 791363 1 Tablet(s) PO TID 09/2805/27/2019 Inactive replaces 0.2mg dose clonidine HCl 0.1 mg tablet RxNorm: 938670 1 Tablet(s) PO TID 09/2802/18/2015 Inactive replaces 0.2mg dose baclofen 20 mg tablet RxNorm: 807340 1 Tablet(s) PO TID as needed 1 11/01/2013 08/30/2014 Inactive Lipitor 10 mg tablet RxNorm: 124967 1 Tablet(s) PO QHS 08/31/2014 Inactive baclofen 20 mg tablet RxNorm: 644319 1 Tablet(s) PO TID as needed 1 11/01/2013 10/26/2014 Inactive triamterene 75 mg-hydrochlorothiazide 50 mg tablet RxNorm: 3 60872 1 Tablet(s) PO QD 08/31/2014 02/26/2015 Inactive Klor-Con 8 mEq tablet,extended release RxNorm: 072422 1 Tablet( s) PO BID 08/31/2014 11/20/2014 Inactive baclofen 20 mg tablet RxNorm: 712253 1 Tablet(s) PO TID as needed 1 09/30/2013 10/25/2014 Inactive baclofen 20 mg tablet RxNorm: 099337 1 Tablet(s) PO TID as needed 1 09/30/2013 08/31/2014 Inactive omeprazole 40 mg capsule,delayed release RxNorm: 031059 1 Capsu le(s) PO QD 07/21/2014 07/23/2015 Inactive Flonase 50 mcg/actuation nasal spray,suspension RxNorm: 8963 23 1 [place] NASAL BID 07/15/2014 04/09/2017 Inactive hydrocodone 10 mg-acetaminophen 325 mg tablet RxNorm: 039528 1-2 Tablet(s) QID as needed for pain TAKE ONE TO TWO TABLETS BY MOUTH FOUR TIMES A DAY . MUST LAST 30 DAYS 06/30/2014 07/27/2014 Inactive (Response to an electronic controlled substance refill request - RxReferenceNumber: [id number]) baclofen 20 mg tablet RxNorm: 991075 1 Tablet(s) PO TID as needed 1 07/31/2014 Inactive Singulair 10 mg tablet RxNorm: 670350 1 Tablet(s) PO QD TAKE ONE TABLET BY MOUTH EVERY DAY 05/25/2014 11/20/2014 Inactive Bystolic 10 mg tablet RxNorm: 872195 TAKE ONE TABLET BY MOUTH E VERY MORNING 05/25/2014 09/21/2014 Inactive allopurinol 300 mg tablet RxNorm: 303653 1 Tablet(s) PO QD TAKE ONE TABLET BY MOUTH EVERY DAY 05/25/2014 10/21/2014 Inactive baclofen 20 mg tablet RxNorm: 422527 1 Tablet(s) PO TID as needed 0 05/25/2014 06/29/2014 Inactive allopurinol 300 mg tablet RxNorm: 689435 TAKE ONE TABLET BY LOPEZ TH EVERY DAY 05/25/2014 09/21/2014 Inactive Singulair 10 mg tablet RxNorm: 429824 1 Tablet(s) PO QD TAKE ONE TABLET BY MOUTH EVERY DAY 05/25/2014 05/24/2014 Inactive Bystolic 10 mg tablet RxNorm: 298011 1 Tablet(s) PO QAM TAKE ONE TABLET BY MOUTH EVERY MORNING 05/25/2014 10/21/2014 Inactive metolazone 2.5 mg tablet RxNorm: 800941 1 Tablet(s) PO QD as ne eded for edema 05/18/2014 04/25/2015 Inactive Lasix 40 mg tablet RxNorm: 146591 1 Tablet(s) PO QAM s hould take potassium supplementation with this medication 05/14/2014 05/17/2014 Inactive hydrocodone 10 mg-acetaminophen 325 mg tablet RxNorm: 656317 1-2 Tablet(s) QID as needed for pain TAKE ONE TO TWO TABLETS BY MOUTH FOUR TIMES A DAY . MUST LAST 30 DAYS 05/07/2014 06/05/2014 Inactive (Response to an electronic controlled substance refill request - RxReferenceNumber: [id number]) alprazolam 0.5 mg tablet RxNorm: 510162 TAKE ONE TABLET BY MOUTH TWICE A DAY , MUST LAST 30 DAYS 05/07/2014 05/22/2016 Inactive (Response to a n electronic controlled substance refill request - RxReferenceNumber: [id number]) diclofenac sodium 75 mg tablet,delayed release RxNorm: 89944 6 1 Tablet(s) PO BID for pain 04/24/2014 07/20/2014 Inactive Celebrex 200 mg capsule RxNorm: 481242 TAKE ONE CAPSULE BY MOUT H EVERY DAY 04/24/2014 07/20/2014 Inactive alprazolam 0.5 mg tablet RxNorm: 766872 TAKE ONE TABLET BY MOUTH TWICE A DAY , MUST LAST 30 DAYS 03/24/2014 04/22/2014 Inactive (Response to a n electronic controlled substance refill request - RxReferenceNumber: [id number]) diclofenac sodium 75 mg tablet,delayed release RxNorm: 76290 6 1 Tablet(s) PO BID for pain 03/24/2014 04/24/2014 Inactive clonidine HCl 0.1 mg tablet RxNorm: 897120 1 Tablet(s) PO TID 03/2409/28/2014 Inactive replaces 0.2mg dose Klor-Con 8 mEq tablet,extended release RxNorm: 657526 1 Tablet( s) PO BID 02/26/2014 08/31/2014 Inactive diclofenac sodium 75 mg tablet,delayed release RxNorm: 26707 6 1 Tablet(s) PO BID for pain 02/25/2014 03/24/2014 Inactive hydrocodone 10 mg-acetaminophen 325 mg tablet RxNorm: 359084 1-2 Tablet(s) QID as needed for pain TAKE ONE TO TWO TABLETS BY MOUTH FOUR TIMES A DAY . MUST LAST 30 DAYS 02/25/2014 03/26/2014 Inactive (Response to an electronic controlled substance refill request - RxReferenceNumber: [id number]) alprazolam 0.5 mg tablet RxNorm: 003980 Tablet(s) PO BI D as needed for anxiety TAKE ONE TABLET BY MOUTH TWICE A DAY , MUST LAST 30 DAYS 02/25/2014 Inactive (Response to an electronic controlled [place] bstance refill request - RxReferenceNumber: [id number]) [AttnRPh: Saving apply/adjudicate RxGRP:SG20 RxBIN:[id number] RxPCN: ID#:[id number]] alprazolam 0.5 mg tablet RxNorm: 531899 Tablet(s) TAKE ONE TABLET BY MOUTH TWICE A DAY , MUST LAST 30 DAYS 01/27/2014 02/24/2014 Inactive (Respo nse to an electronic controlled substance refill request - RxReferenceNumber: [id number]) [AttnRPh: Saving apply/adjudicate RxGRP:SG20 RxBIN:[id number] RxPCN: ID#:[id number]] hydrocodone 10 mg-acetaminophen 325 mg tablet RxNorm: 438459 1-2 Tablet(s) QID as needed for pain TAKE ONE TO TWO TABLETS BY MOUTH FOUR TIMES A DAY . MUST LAST 30 DAYS 01/27/2014 02/24/2014 Inactive (Response to an electronic controlled substance refill request - RxReferenceNumber: [id number]) alprazolam 0.5 mg tablet RxNorm: 158966 TAKE ONE TABLET BY MOUTH TWICE A DAY , MUST LAST 30 DAYS 01/27/2014 01/26/2014 Inactive (Response to a n electronic controlled substance refill request - RxReferenceNumber: [id number]) Premarin 1.25 mg tablet RxNorm: 446095 1-2 Tablet(s) PO QD 01/28/20 14 07/25/2014 Inactive alprazolam 0.5 mg tablet RxNorm: 624838 TAKE ONE TABLET BY MOUTH TWICE A DAY , MUST LAST 30 DAYS 01/27/2014 01/27/2014 Inactive (Response to a n electronic controlled substance refill request - RxReferenceNumber: [id number]) hydrocodone 10 mg-acetaminophen 325 mg tablet RxNorm: 696651 TAKE ONE TO TWO TABLETS BY MOUTH FOUR TIMES A DAY . MUST LAST 30 DAYS 01/27/20142013 Inactive (Response to an electronic controlled [place] bstance refill request - RxReferenceNumber: [id number]) Celebrex 200 mg capsule RxNorm: 323876 1 Capsule(s) PO QD TAKE ONE CAPSULE BY MOUTH EVERY DAY 12/29/2013 04/27/2014 Inactive hydrocodone 10 mg-acetaminophen 325 mg tablet RxNorm: 403295 1-2 Tablet(s) PO QID as needed for severe pain 12/29/2013 01/27/2014 Inactive allopurinol 300 mg tablet RxNorm: 894265 1 Tablet(s) PO QD TAKE ONE TABLET BY MOUTH EVERY DAY 12/29/2013 05/24/2014 Inactive alprazolam 0.5 mg tablet RxNorm: 114328 TAKE ONE TABLET BY MOUTH TWICE A DAY , MUST LAST 30 DAYS 12/29/2013 01/27/2014 Inactive (Response to a n electronic controlled substance refill request - RxReferenceNumber: [id number]) Celebrex 200 mg capsule RxNorm: 720565 1 Capsule(s) PO QD TAKE ONE CAPSULE BY MOUTH EVERY DAY 12/29/2013 12/29/2013 Inactive Bystolic 10 mg tablet RxNorm: 960885 1 Tablet(s) PO QAM TAKE ONE TABLET BY MOUTH EVERY MORNING 12/29/2013 05/24/2014 Inactive Bystolic 10 mg tablet RxNorm: 058319 1 Tablet(s) PO QAM TAKE ONE TABLET BY MOUTH EVERY MORNING 12/29/2013 12/29/2013 Inactive Singulair 10 mg tablet RxNorm: 443654 1 Tablet(s) PO QD TAKE ONE TABLET BY MOUTH EVERY DAY 12/29/2013 05/25/2014 Inactive hydrocodone 10 mg-acetaminophen 325 mg tablet RxNorm: 731771 TAKE ONE TO TWO TABLETS BY MOUTH FOUR TIMES A DAY . MUST LAST 30 DAYS 12/29/20132013 Inactive (Response to an electronic controlled [place] bstance refill request - RxReferenceNumber: [id number]) Trazadone 75mg Tablet RxNorm: 1 Tablet(s) PO QHS as needed 03/23/2014 Inactive Trazadone 75mg Tablet RxNorm: 1 Tablet(s) PO QHS 12/24/20132014 Inactive Soma 350 mg tablet RxNorm: 971020 Tablet(s) PO TAKE ON E TABLET BY MOUTH THREE TIMES A DAY NEEDED FOR MUSCLE SPASMS. THIS MUST LAST 30 DAYS BETWEEN REFILLS. 12/10/2013 12/22/2013 Inactive (Appended: Cont rolled substance eRx refill - RxReferenceNumber: [id number]) diclofenac sodium 75 mg tablet,delayed release RxNorm: 78728 6 1 Tablet(s) PO BID for pain 12/10/2013 02/24/2014 Inactive allopurinol 300 mg tablet RxNorm: 182406 1 Tablet(s) PO QD 11/20/19 14 12/29/2013 Inactive alprazolam 0.5 mg tablet RxNorm: 384142 2 Tablet(s) PO BID 11/13/19 14 12/29/2013 Inactive prn clonidine 0.1 mg tablet RxNorm: 616334 1 Tablet(s) PO TID 11/12/2013 02/09/2014 Inactive replaces 0.2mg dose Klor-Con M20 mEq tablet,extended release RxNorm: 737754 2 Tablet(s) PO BID to use with lasix 11/12/2013 05/10/2014 Inactive Singulair 10 mg tablet RxNorm: 665039 1 Tablet(s) PO QD 11/12/2013 Inactive hydrocodone 10 mg-acetaminophen 325 mg tablet RxNorm: 210308 1-2 Tablet(s) PO QID as needed for severe pain 11/12/2013 12/28/2013 Inactive Bystolic 10 mg tablet RxNorm: 346621 1 Tablet(s) PO QAM 11/12/2013 Inactive Soma 350 mg tablet RxNorm: 627446 Tablet(s) PO TAKE ON E TABLET BY MOUTH THREE TIMES A DAY NEEDED FOR MUSCLE SPASMS. THIS MUST LAST 30 DAYS BETWEEN REFILLS. 10/13/2013 12/10/2013 Inactive (Appended: Cont rolled substance eRx refill - RxReferenceNumber: [id number]) hydrocodone 10 mg-acetaminophen 325 mg tablet RxNorm: 415549 1-2 Tablet(s) PO QID as needed for severe pain 10/03/2013 11/11/2013 Inactive diclofenac sodium 75 mg tablet,delayed release RxNorm: 36583 8 1 Tablet(s) PO BID for pain 09/11/2013 12/10/2013 Inactive alprazolam 0.5 mg tablet RxNorm: 847594 1 Tablet(s) PO BID May refill on 04/26/13 09/01/2013 10/30/2013 Inactive prn hydrocodone 10 mg-acetaminophen 325 mg tablet RxNorm: 707856 1-2 Tablet(s) PO QID as needed for severe pain 09/01/2013 10/02/2013 Inactive triamterene 75 mg-hydrochlorothiazide 50 mg tablet RxNorm: 3 75041 1 Tablet(s) PO QD 08/04/2013 08/31/2014 Inactive cyclobenzaprine 10 mg tablet RxNorm: 707920 1 Tablet(s) PO TID prn spasm 08/04/2013 08/13/2013 Inactive clonidine 0.1 mg tablet RxNorm: 209376 1 Tablet(s) PO TID 08/04/2013 11/11/2013 Inactive replaces 0.2mg dose cyclobenzaprine 10 mg tablet RxNorm: 561455 1 Tablet(s) PO TID prn spasm 07/23/2013 08/01/2013 Inactive hydrocodone 10 mg-acetaminophen 325 mg tablet RxNorm: 789443 2 1-2 Tablet(s) PO QID as needed for severe pain 06/09/2013 08/07/2013 Inactive Singulair 10 mg tablet RxNorm: 766108 1 Tablet(s) PO QD 05/29/2013 Inactive Klor-Con 8 mEq tablet,extended release RxNorm: 542041 1 Tablet( s) PO BID 05/29/2013 02/26/2014 Inactive allopurinol 300 mg tablet RxNorm: 999313 1 Tablet(s) PO QD 05/29/20 13 11/19/2013 Inactive Bystolic 10 mg tablet RxNorm: 135700 1 Tablet(s) PO QAM take one daily in the morning. 05/29/2013 11/11/2013 Inactive scopolamine 1.5 mg 72 hr Transderm Patch RxNorm: 177510 Application TD Q72H for motion sickness 05/26/2013 07/22/2013 Inactive Soma 350 mg tablet RxNorm: 853050 1 Tablet(s) PO TID as needed for spasm 05/19/2013 10/13/2013 Inactive diclofenac sodium 75 mg tablet,delayed release RxNorm: 47047 8 1 Tablet(s) PO BID for pain 05/14/2013 07/22/2013 Inactive allopurinol 300 mg tablet RxNorm: 048778 1 Tablet(s) PO QD 04/25/20 13 05/28/2013 Inactive alprazolam 0.5 mg tablet RxNorm: 414697 1 Tablet(s) PO BID May refill on 04/26/13 04/25/2013 06/23/2013 Inactive prn Celebrex 200 mg capsule RxNorm: 335480 1 Capsule(s) PO QD 04/16/2013 12/29/2013 Inactive alprazolam 0.5 mg tablet RxNorm: 493863 1 Tablet(s) PO BID May refill on 04/26/13 04/16/2013 04/24/2013 Inactive prn Soma 350 mg tablet RxNorm: 930190 1 Tablet(s) PO TID as needed for spasm 04/16/2013 No Stop Date Active Lasix 40 mg tablet RxNorm: 385641 1 Tablet(s) PO QAM s hould take potassium supplementation with this medication 04/16/2013 06/14/2013 Inactive clonidine 0.1 mg tablet RxNorm: 307720 1 Tablet(s) PO TID 04/16/2013 08/03/2013 Inactive replaces 0.2mg dose prednisone 20 mg tablet RxNorm: 614498 1 Tablet(s) PO BID 04/16/2013 04/20/2013 Inactive diclofenac sodium 75 mg tablet,delayed release RxNorm: 13513 8 1 Tablet(s) PO BID for pain 04/14/2013 05/13/2013 Inactive hydrocodone 10 mg-acetaminophen 325 mg tablet RxNorm: 157958 2 1-2 Tablet(s) PO QID as needed for severe pain 04/14/2013 No Stop Date Active Lasix 40 mg tablet RxNorm: 525238 1 Tablet(s) PO QAM s hould take potassium supplementation with this medication 03/31/2013 04/15/2013 Inactive Celebrex 200 mg capsule RxNorm: 561357 1 Capsule(s) PO QD 03/31/2013 04/15/2013 Inactive alprazolam 0.5 mg tablet RxNorm: 919234 1 Tablet(s) PO BID 03/28/20 13 04/15/2013 Inactive prn hydrocodone 10 mg-acetaminophen 325 mg tablet RxNorm: 072952 2 1-2 Tablet(s) PO QID as needed for severe pain 03/10/2013 No Stop Date Active metformin ER 500 mg 24 hr tablet,extended release RxNorm: 86 1018 1 Tablet(s) PO QD 03/06/2013 07/22/2013 Inactive clindamycin 300 mg capsule RxNorm: 014228 2 Capsule(s) PO TID 03/0503/14/2013 Inactive Zaroxolyn 2.5 mg tablet RxNorm: 636922 1 Tablet(s) PO QAM 03/05/2013 05/19/2015 Inactive amlodipine 10 mg tablet RxNorm: 090080 1 Tablet(s) PO QD 03/03/2013 0 05/25/2013 Inactive Norvasc 10 mg tablet RxNorm: 047005 1 Tablet(s) PO QD 02/28/201307/11 Inactive Celebrex 200 mg capsule RxNorm: 370779 1 Capsule(s) PO QD 02/28/2013 03/30/2013 Inactive diclofenac sodium 75 mg tablet,delayed release RxNorm: 78228 8 1 Tablet(s) PO BID for pain 02/14/2013 03/15/2013 Inactive Soma 350 mg tablet RxNorm: 836591 1 Tablet(s) PO TID as needed for spasm 02/14/2013 No Stop Date Active hydrocodone 10 mg-acetaminophen 325 mg tablet RxNorm: 339143 2 1-2 Tablet(s) PO QID as needed for severe pain 02/14/2013 No Stop Date Active Norvasc 10 mg tablet RxNorm: 137720 1 Tablet(s) PO QD 02/10/201302/09 Inactive Celebrex 200 mg capsule RxNorm: 447118 1 Capsule(s) PO QD 01/27/2013 01/26/2013 Inactive Premarin 1.25 mg tablet RxNorm: 075461 1-2 Tablet(s) PO QD 01/28/20 13 06/25/2013 Inactive alprazolam 0.5 mg tablet RxNorm: 550424 1 Tablet(s) PO BID 01/28/20 13 02/25/2013 Inactive prn amlodipine 5 mg tablet RxNorm: 155426 1 Tablet(s) PO QD 01/27/2013 Inactive Celebrex 200 mg capsule RxNorm: 418299 1 Capsule(s) PO QD 01/27/2013 02/27/2013 Inactive gabapentin 600 mg tablet RxNorm: 773794 1 Tablet(s) PO QHS 01/16/20 13 07/22/2013 Inactive Soma 350 mg tablet RxNorm: 333246 1 Tablet(s) PO TID as needed for spasm 01/15/2013 No Stop Date Active hydrocodone 10 mg-acetaminophen 325 mg tablet RxNorm: 952250 2 1-2 Tablet(s) PO QID as needed for severe pain 01/15/2013 No Stop Date Active Soma 350 mg tablet RxNorm: 657241 1 Tablet(s) PO TID as needed for spasm 01/13/2013 No Stop Date Active alprazolam 0.5 mg tablet RxNorm: 466874 1 Tablet(s) PO BID 12/31/19 13 01/26/2013 Inactive prn diclofenac sodium 75 mg tablet,delayed release RxNorm: 39229 8 1 Tablet(s) PO BID for pain 12/09/2012 01/07/2013 Inactive gabapentin 600 mg tablet RxNorm: 546407 1 Tablet(s) PO QHS 12/10/19 13 01/07/2013 Inactive hydrocodone 10 mg-acetaminophen 325 mg tablet RxNorm: 033410 2 1-2 Tablet(s) PO QID as needed for severe pain 12/02/2012 No Stop Date Active Levaquin 750 mg tablet RxNorm: 815306 1 Tablet(s) PO QD 11/21/2012 Inactive Singulair 10 mg tablet RxNorm: 980558 1 Tablet(s) PO QD 11/11/2012 Inactive clonidine 0.2 mg tablet RxNorm: 402021 1 Tablet(s) PO TID 11/11/2012 04/15/2013 Inactive alprazolam 0.5 mg tablet RxNorm: 127637 1 Tablet(s) PO BID 11/12/19 13 12/10/2012 Inactive prn Klor-Con 8 mEq tablet,extended release RxNorm: 500214 1 Tablet( s) PO BID 11/11/2012 03/04/2013 Inactive hydrocodone 10 mg-acetaminophen 325 mg tablet RxNorm: 091588 2 1-2 Tablet(s) PO QID as needed for severe pain 11/06/2012 No Stop Date Active alprazolam 0.5 mg tablet RxNorm: 760491 1 Tablet(s) PO BID 10/15/19 13 11/10/2012 Inactive prn hydrocodone-acetaminophen 10 mg-325 mg tablet RxNorm: 898874 2 1-2 Tablet(s) PO QID as needed for severe pain 10/10/2012 10/09/2012 Inactive allopurinol 300 mg tablet RxNorm: 463846 1 Tablet(s) PO QD 09/20/19 13 12/18/2012 Inactive alprazolam 0.5 mg tablet RxNorm: 394392 1 Tablet(s) PO BID 09/17/19 13 10/14/2012 Inactive prn hydrocodone-acetaminophen 10 mg-325 mg tablet RxNorm: 156343 2 1-2 Tablet(s) PO QID as needed for severe pain 08/22/2012 08/21/2012 Inactive Norvasc 10 mg tablet RxNorm: 875552 1 Tablet(s) PO QD 08/12/201201/10 Inactive Premarin 1.25 mg tablet RxNorm: 857681 1-2 Tablet(s) PO QD 07/30/20 12 12/26/2012 Inactive alprazolam 0.5 mg tablet RxNorm: 755716 1 Tablet(s) PO BID 07/29/20 12 08/27/2012 Inactive prn Klor-Con 8 mEq tablet,extended release RxNorm: 777287 1 Tablet( s) PO BID 07/29/2012 11/10/2012 Inactive hydrocodone-acetaminophen 10 mg-325 mg tablet RxNorm: 563041 2 1-2 Tablet(s) PO QID as needed for severe pain 07/29/2012 No Stop Date Active Premarin 1.25 mg tablet RxNorm: 099596 1-2 Tablet(s) PO QD 07/29/20 12 07/29/2012 Inactive clonidine 0.2 mg tablet RxNorm: 427439 1 Tablet(s) PO TID 07/29/2012 10/28/2012 Inactive ketorolac 10 mg tablet RxNorm: 322571 1 Tablet(s) PO QID prn mitul joseph 07/18/2012 No Stop Date Active hydrocodone-acetaminophen 10 mg-325 mg tablet RxNorm: 861036 2 1-2 Tablet(s) PO QID as needed for severe pain 07/03/2012 No Stop Date Active amlodipine 5 mg tablet RxNorm: 891444 1 Tablet(s) PO QD 07/02/2012 Inactive allopurinol 300 mg tablet RxNorm: 258692 1 Tablet(s) PO QD 07/02/20 12 09/19/2012 Inactive Celebrex 200 mg capsule RxNorm: 235126 1 Capsule(s) PO QD for j oint pain 06/26/2012 10/23/2012 Inactive diclofenac sodium 75 mg tablet,delayed release RxNorm: 83240 8 1 Tablet(s) PO BID for pain 06/19/2012 09/16/2012 Inactive hydrocodone-acetaminophen 10 mg-325 mg tablet RxNorm: 958969 2 1-2 Tablet(s) PO QID as needed for severe pain 06/10/2012 No Stop Date Active alprazolam 0.5 mg tablet RxNorm: 586602 1 Tablet(s) PO BID 06/03/20 12 07/02/2012 Inactive prn ketorolac 10 mg tablet RxNorm: 122646 1 Tablet(s) PO Q8H 05/27/2012 0 01/21/2019 Inactive as needed for headache hydrocodone-acetaminophen 10 mg-325 mg tablet RxNorm: 711820 2 1-2 Tablet(s) PO QID as needed for severe pain 05/15/2012 No Stop Date Active allopurinol 300 mg tablet RxNorm: 797603 1 Tablet(s) PO QD 05/14/20 12 06/12/2012 Inactive allopurinol 300 mg tablet RxNorm: 384493 1 Tablet(s) PO QD 05/14/20 12 05/13/2012 Inactive amlodipine 5 mg tablet RxNorm: 415396 1 Tablet(s) PO QD 05/01/2012 Inactive amlodipine 5 mg Tab RxNorm: 319019 1 Tablet(s) PO QD 05/01/201204/30 Inactive Celebrex 200 mg capsule RxNorm: 716660 1 Capsule(s) PO QD for j oint pain 05/01/2012 06/25/2012 Inactive Singulair 10 mg tablet RxNorm: 319830 1 Tablet(s) PO QD 05/01/2012 Inactive alprazolam 0.5 mg tablet RxNorm: 412939 1 Tablet(s) PO BID 05/01/20 12 05/30/2012 Inactive prn Celebrex 200 mg Cap RxNorm: 446876 1 Capsule(s) PO QD for joint radu n 05/01/2012 04/30/2012 Inactive hydrocodone-acetaminophen 10 mg-325 mg tablet RxNorm: 978664 2 1-2 Tablet(s) PO QID as needed for severe pain 04/19/2012 No Stop Date Active Lasix 40 mg tablet RxNorm: 614234 1 Tablet(s) PO QAM s hould take potassium supplementation with this medication 04/05/2012 06/03/2012 Inactive alprazolam 0.5 mg Tab RxNorm: 548023 1 Tablet(s) PO BID 04/05/2012 Inactive prn hydrocodone-acetaminophen 10 mg-325 mg Tab RxNorm: 4046959 1-2 Tablet(s) PO QID as needed for severe pain 03/25/2012 03/24/2012 Inactive clonidine 0.2 mg Tab RxNorm: 416876 1 Tablet(s) PO TID 03/08/2012 Inactive alprazolam 0.5 mg Tab RxNorm: 961749 1 Tablet(s) PO BID 03/08/2012 Inactive prn Soma 350 mg tablet RxNorm: 030913 1 Tablet(s) PO TID for spasm 02/0903/18/2012 Inactive clonidine 0.2 mg tablet RxNorm: 969252 1 Tablet(s) PO TID 03/08/2012 07/28/2012 Inactive Celebrex 200 mg Cap RxNorm: 401712 1 Capsule(s) PO QD for joint radu n 03/01/2012 04/29/2012 Inactive amlodipine 5 mg Tab RxNorm: 823857 1 Tablet(s) PO QD 02/26/201202/24 Inactive amlodipine 5 mg Tab RxNorm: 777243 1 Tablet(s) PO QD 02/26/201204/25 Inactive Bactroban 2 % Ointment RxNorm: 010866 Application TOP QID to sores 02/23/2012 No Stop Date Active amlodipine 2.5 mg tablet RxNorm: 335491 1 Tablet(s) PO QHS 02/20/20 12 02/25/2012 Inactive doxycycline hyclate 100 mg Cap RxNorm: 2941092 1 Capsule(s) PO BID 02/20/2012 02/29/2012 Inactive hydrocodone-acetaminophen 10 mg-325 mg Tab RxNorm: 2518991 1-2 T ablet(s) PO QID 02/08/2012 No Stop Date Active alprazolam 0.5 mg Tab RxNorm: 818658 1 Tablet(s) PO BID 02/08/2012 Inactive prn Singulair 10 mg Tab RxNorm: 615820 1 Tablet(s) PO QD 02/08/201204/30 Inactive Soma 350 mg Tab RxNorm: 459294 1 Tablet(s) PO TID for spasm 012 03/07/2012 Inactive Soma 350 mg Tab RxNorm: 262542 1 Tablet(s) PO TID for spasm 012 02/05/2012 Inactive diclofenac sodium 75 mg tablet,delayed release RxNorm: 28644 8 1 Tablet(s) PO BID for pain 02/01/2012 03/18/2012 Inactive Celebrex 200 mg Cap RxNorm: 130517 1 Capsule(s) PO QD for joint radu n 01/30/2012 02/28/2012 Inactive Lasix 40 mg Tab RxNorm: 789597 1 Tablet(s) PO QAM 01/24/2012 03/18/20 12 Inactive potassium chloride ER 20 mEq tablet,extended release(part/cr yst) RxNorm: 497052 2 Tablet(s) PO BID 01/24/2012 02/22/2012 Inactive alprazolam 0.5 mg Tab RxNorm: 375989 1 Tablet(s) PO BID 01/11/2012 Inactive prn hydrocodone-acetaminophen 10 mg-325 mg Tab RxNorm: 5704026 1-2 T ablet(s) PO QID 01/11/2012 No Stop Date Active Ambien 10 mg Tab RxNorm: 235712 1 Tablet(s) PO QHS 01/11/2012 012 Inactive Klor-Con 8 mEq Tab RxNorm: 216498 1 Tablet(s) PO BID 01/11/201201/22 Inactive diclofenac sodium 75 mg Tab, Delayed Release RxNorm: 324640 1 Tablet(s) PO BID for pain 01/10/2012 01/31/2012 Inactive Ambien 10 mg Tab RxNorm: 873586 1 Tablet(s) PO QHS 12/11/2011 012 Inactive alprazolam 0.5 mg Tab RxNorm: 733899 1 Tablet(s) PO BID 12/11/2011 Inactive prn hydrocodone 10 mg-acetaminophen 325 mg tablet RxNorm: 775513 1-2 Tablet(s) PO TID 11/28/2011 No Stop Date Active as needed for pa in - Previous quantity #240, will start dosing for #180 in April 2011 per Doctor Appiah. Ambien 10 mg Tab RxNorm: 704950 1 Tablet(s) PO QHS 11/09/2011 012 Inactive alprazolam 0.5 mg Tab RxNorm: 756451 1 Tablet(s) PO BID 11/09/2011 Inactive prn hydrocodone-acetaminophen 10 mg-325 mg Tab RxNorm: 5935274 1-2 T ablet(s) PO TID 11/06/2011 No Stop Date Active as needed for pain - Previous quantity #240, will start dosing for #180 in April 2011 per Doctor Td. Singulair 10 mg Tab RxNorm: 380846 1 Tablet(s) PO QD 10/13/201110/12 Inactive Singulair 10 mg Tab RxNorm: 170137 1 Tablet(s) PO QD 10/13/201102/06 Inactive hydrocodone-acetaminophen 10 mg-325 mg Tab RxNorm: 8732236 1-2 T ablet(s) PO TID 10/10/2011 10/09/2011 Inactive as needed for pain - Previous quantity #240, will start dosing for #180 in April 2011 per Doctor Td. hydrocodone-acetaminophen 10 mg-325 mg Tab RxNorm: 5841515 1-2 T ablet(s) PO TID 10/09/2011 No Stop Date Active as needed for pain - Previous quantity #240, will start dosing for #180 in April 2011 per Doctor Td. Klor-Con 8 mEq Tab RxNorm: 702609 1 Tablet(s) PO BID 10/02/201101/09 Inactive triamterene 75 mg-hydrochlorothiazide 50 mg tablet RxNorm: 3 82507 1 Tablet(s) PO QD 09/14/2011 03/06/2013 Inactive Ambien 10 mg Tab RxNorm: 596051 1 Tablet(s) PO QHS 09/14/2011 012 Inactive hydrocodone-acetaminophen 10 mg-325 mg Tab RxNorm: 3929587 1-2 T ablet(s) PO TID 09/14/2011 No Stop Date Active as needed for pain - Previous quantity #240, will start dosing for #180 in April 2011 per Doctor Td. alprazolam 0.5 mg Tab RxNorm: 391050 1 Tablet(s) PO BID 09/14/2011 Inactive prn Zithromax 500 mg Tab RxNorm: 608526 1 Tablet(s) PO QD 09/13/201109/10 Inactive prednisone 20 mg Tab RxNorm: 430577 1 Tablet(s) PO BID 08/31/2011 Inactive Ambien 10 mg Tab RxNorm: 263162 1 Tablet(s) PO QHS 08/17/2011 011 Inactive hydrocodone-acetaminophen 10 mg-325 mg Tab RxNorm: 2835412 1-2 T ablet(s) PO TID 08/17/2011 No Stop Date Active as needed for pain - Previous quantity #240, will start dosing for #180 in April 2011 per Doctor Td. clonidine 0.2 mg Tab RxNorm: 072265 1 Tablet(s) PO TID 08/17/201112/2011 Inactive Ambien 10 mg Tab RxNorm: 599487 1 Tablet(s) PO QHS 08/17/2011 019 Inactive alprazolam 0.5 mg Tab RxNorm: 073706 1 Tablet(s) PO BID 08/17/2011 Inactive prn hydrocodone-acetaminophen 10 mg-325 mg Tab RxNorm: 3085492 1-2 T ablet(s) PO TID 08/17/2011 08/16/2011 Inactive as needed for pain - Previous quantity #240, will start dosing for #180 in April 2011 per Doctor Td. Singulair 10 mg Tab RxNorm: 652097 1 Tablet(s) PO QD 08/17/201108/16 Inactive Klor-Con 8 mEq Tab RxNorm: 566699 1 Tablet(s) PO QD 08/17/20112011 Inactive alprazolam 0.5 mg Tab RxNorm: 736350 1 Tablet(s) PO BID 07/20/2011 Inactive prn Ambien 10 mg Tab RxNorm: 093878 1 Tablet(s) PO QHS 07/20/2011 012 Inactive Singulair 10 mg Tab RxNorm: 114635 1 Tablet(s) PO QD 07/20/201107/19 Inactive Premarin 1.25 mg tablet RxNorm: 498632 2 Tablet(s) PO QD 07/20/2011 0 01/21/2019 Inactive Premarin 1.25 mg tablet RxNorm: 051041 1-2 Tablet(s) PO QD 07/20/20 11 12/16/2011 Inactive Premarin 1.25 mg Tab RxNorm: 862439 1-2 Tablet(s) PO QD 07/06/2011 Inactive alprazolam 0.5 mg Tab RxNorm: 108083 1 Tablet(s) PO BID 06/22/2011 Inactive prn alprazolam 0.5 mg Tab RxNorm: 536865 1 Tablet(s) PO BID 06/22/2011 Inactive prn Premarin 1.25 mg Tab RxNorm: 099407 1 Tablet(s) PO QD m ay do 90 day fill if desired 06/22/2011 07/05/2011 Inactive hydrocodone-acetaminophen 10 mg-325 mg Tab RxNorm: 4864195 1-2 T ablet(s) PO TID 06/22/2011 No Stop Date Active as needed for pain - Previous quantity #240, will start dosing for #180 in April 2011 per Doctor Td. clonidine 0.2 mg Tab RxNorm: 022767 1 Tablet(s) PO TID 05/25/201103/2011 Inactive triamterene-hydrochlorothiazide 75 mg-50 mg Tab RxNorm: 3108 18 1 Tablet(s) PO QD 05/25/2011 09/13/2011 Inactive alprazolam 0.5 mg Tab RxNorm: 759589 1 Tablet(s) PO BID 05/25/2011 Inactive prn hydrocodone-acetaminophen 10 mg-325 mg Tab RxNorm: 5998640 1-2 T ablet(s) PO TID 05/25/2011 No Stop Date Active as needed for pain - Previous quantity #240, will start dosing for #180 in April 2011 per Doctor Td. Robaxin-750 750 mg Tab RxNorm: 777537 2 Tablet(s) PO QHS 05/22/2011 1 Inactive prn spasm hydrocodone-acetaminophen 10 mg-325 mg Tab RxNorm: 8100437 1-2 T ablet(s) PO TID 04/26/2011 No Stop Date Active as needed for pain - Previous quantity #240, will start dosing for #180 in April 2011 per Doctor Td. alprazolam 0.5 mg Tab RxNorm: 420382 1 Tablet(s) PO BID 04/25/2011 Inactive prn Klor-Con 8 mEq Tab RxNorm: 052571 1 Tablet(s) PO QD 03/30/20112010 Inactive Klor-Con 8 mEq Tab RxNorm: 628917 1 Tablet(s) PO QD 03/29/20112010 Inactive hydrocodone-acetaminophen 10 mg-325 mg Tab RxNorm: 5674284 1-2 T ablet(s) PO TID 03/20/2011 04/25/2011 Inactive as needed for pain - Previous quantity #240, will start dosing for #180 in April 2011 per Doctor Td. alprazolam 0.5 mg Tab RxNorm: 735571 1 Tablet(s) PO BID prn 011 03/30/2011 Inactive Ambien 10 mg Tab RxNorm: 891933 1 Tablet(s) PO QHS 03/01/2011 011 Inactive cyclobenzaprine 10 mg Tab RxNorm: 228190 1 Tablet(s) PO TID 011 03/18/2012 Inactive cyclobenzaprine 10 mg Tab RxNorm: 146642 1 Tablet(s) PO TID 011 01/08/2011 Inactive cyclobenzaprine 10 mg Tab RxNorm: 091500 1 Tablet(s) PO TID 011 12/20/2010 Inactive terbinafine 250 mg Tab RxNorm: 860385 1 Tablet(s) PO QD 12/12/2010 Inactive triamterene-hydrochlorothiazide 75 mg-50 mg Tab RxNorm: 3108 18 1 Tablet(s) PO QD 12/07/2010 01/12/2020 Inactive Klor-Con 8 8 mEq Tab RxNorm: 215978 1 Tablet(s) PO QD 12/07/201001/08 Inactive Premarin 1.25 mg Tab RxNorm: 182212 2 Tablet(s) PO QD 12/07/201001/08 Inactive clonidine 0.2 mg Tab RxNorm: 863163 1 Tablet(s) PO TID 12/07/2010 Inactive hydrocodone-acetaminophen 7.5 mg-650 mg Tab RxNorm: 487571 1 Ta blet(s) PO Q4H 12/05/2010 01/21/2019 Inactive hydrocodone-acetaminophen 7.5 mg-650 mg Tab RxNorm: 916881 1 Ta blet(s) PO Q4H 10/26/2010 11/14/2010 Inactive hydrocodone-acetaminophen 7.5 mg-650 mg Tab RxNorm: 534329 1 Ta blet(s) PO Q4H 10/13/2010 10/25/2010 Inactive hydrocodone-acetaminophen 7.5 mg-650 mg Tab RxNorm: 752666 1 Ta blet(s) PO Q4H 09/15/2010 09/12/2010 Inactive alprazolam 0.5 mg Tab RxNorm: 995867 1 Tablet(s) PO BID prn 011 09/12/2010 Inactive terbinafine 250 mg Tab RxNorm: 776749 1 Tablet(s) PO QD 09/05/2010 Inactive hydrocodone-acetaminophen 7.5 mg-650 mg Tab RxNorm: 514954 1 Ta blet(s) PO Q4H 08/29/2010 09/17/2010 Inactive alprazolam 0.5 mg Tab RxNorm: 648382 1 Tablet(s) PO BID prn 010 09/27/2010 Inactive alprazolam 0.5 mg Tab RxNorm: 291063 1 Tablet(s) PO BID prn 010 09/06/2010 Inactive Klor-Con 8 mEq Tab RxNorm: 264201 1 Tablet(s) PO QD 08/08/20102010 Inactive hydrocodone-acetaminophen 7.5 mg-650 mg Tab RxNorm: 032643 1 Ta blet(s) PO Q4H 08/08/2010 08/27/2010 Inactive Ambien 10 mg Tab RxNorm: 134685 1 Tablet(s) PO QHS 08/08/2010 Inactive clonidine 0.2 mg Tab RxNorm: 982933 1 Tablet(s) PO TID 08/08/2010 Inactive Premarin 1.25 mg Tab RxNorm: 363181 2 Tablet(s) PO QD 08/08/201009/12 Inactive Ambien 10 mg Tab RxNorm: 208443 1 Tablet(s) PO QHS 07/18/2010 Inactive alprazolam 0.5 mg Tab RxNorm: 750996 1 Tablet(s) PO BID prn 010 08/07/2010 Inactive hydrocodone-acetaminophen 7.5 mg-650 mg Tab RxNorm: 246723 1 Ta blet(s) PO Q4H 07/12/2010 07/31/2010 Inactive clonidine 0.2 mg Tab RxNorm: 331020 1 Tablet(s) PO TID 06/20/2010 Inactive terbinafine 250 mg Tab RxNorm: 753748 1 Tablet(s) PO QD 05/24/2010 Inactive Clonidine 0.2 mg Tab RxNorm: 464663 1 Tablet(s) PO TID 05/24/201006/2010 Inactive Ambien 10 mg Tab RxNorm: 984560 1 Tablet(s) PO QHS 05/24/2010 010 Inactive alprazolam 0.5 mg Tab RxNorm: 885452 1 Tablet(s) PO BID 05/24/2010 Inactive Klor-Con 8 mEq Tab RxNorm: 363765 1 Tablet(s) PO QD 05/24/20102009 Inactive alprazolam 0.5 mg Tab RxNorm: 313810 2 Tablet(s) PO QD prn 05/24/20 10 07/17/2010 Inactive triamterene-hydrochlorothiazide 75 mg-50 mg Tab RxNorm: 3108 18 1 Tablet(s) PO QD 05/24/2010 11/19/2010 Inactive Ambien 10 mg Tab RxNorm: 651622 1 Tablet(s) PO QHS 05/23/2010 010 Inactive Alprazolam 0.5 mg Tab RxNorm: 241889 2 Tablet(s) PO QD prn 05/23/2005/23/2010 Inactive Premarin 1.25 mg Tab RxNorm: 434504 2 Tablet(s) PO QD 05/19/201007/12 Inactive Hydrocodone-Acetaminophen 7.5 mg-650 mg Tab RxNorm: 529969 1 Ta blet(s) PO Q4H 05/19/2010 03/20/2011 Inactive Prednisone 20 mg Tab RxNorm: 916256 1 Tablet(s) PO BID 05/17/2010 Inactive Prednisone 20 mg Tab RxNorm: 010377 1 Tablet(s) PO BID 05/06/201001/2010 Inactive Premarin 1.25 mg Tab RxNorm: 789602 Tablet(s) PO 2 M-W-F, and 1 Mx-Mv-Pig-Sun 05/05/2010 08/02/2010 Inactive Premarin 1.25 mg Tab RxNorm: 031305 Tablet(s) PO 2 M-W-F, and 1 Yf-Ik-Tuk-Sun 05/04/2010 05/04/2010 Inactive Premarin 1.25 mg Tab RxNorm: 869298 Tablet(s) PO 2 M-W-F, and 1 Hi-Bz-Jgq-Sun 05/04/2010 05/03/2010 Inactive Prednisone 20 mg Tab RxNorm: 604106 1 Tablet(s) PO BID 04/27/2010 Inactive Alprazolam 0.5 mg Tab RxNorm: 915726 2 Tablet(s) PO QD prn 04/26/20 10 05/22/2010 Inactive Clindamycin 300 mg Cap RxNorm: 734284 2 Capsule(s) PO TID 04/05/2010 04/18/2010 Inactive Terbinafine 250 mg Tab RxNorm: 188899 1 Tablet(s) PO QD 04/04/2010 Inactive Hydrocodone-Acetaminophen 7.5 mg-650 mg Tab RxNorm: 197628 1 Ta blet(s) PO Q4H 03/30/2010 04/18/2010 Inactive Avelox 400 mg Tab RxNorm: 254976 1 Tablet(s) PO QD 03/09/2010 010 Inactive Hydrocodone-Acetaminophen 7.5 mg-650 mg Tab RxNorm: 809702 1 Ta blet(s) PO Q4H 03/08/2010 03/27/2010 Inactive Alprazolam 0.5 mg Tab RxNorm: 341416 2 Tablet(s) PO QD prn 03/08/20 10 04/25/2010 Inactive Klor-Con 8 mEq Tab RxNorm: 409552 1 Tablet(s) PO QD when takes lasi x 03/07/2010 09/29/2019 Inactive Premarin 1.25 mg Tab RxNorm: 984515 1 Tablet(s) PO QD 03/03/201003/11 Inactive Alprazolam 0.5 mg Tab RxNorm: 521618 1 Tablet(s) PO BID PRN 010 No Stop Date Active triamterene-hydrochlorothiazide 75 mg-50 mg Tab RxNorm: 3108 18 1 Tablet(s) PO QD 02/09/2010 02/03/2011 Inactive Hydrocodone-Acetaminophen 10 mg-750 mg Tab RxNorm: 107816 1 Tablet(s) PO Q4H PRN 02/09/2010 03/20/2011 Inactive Clonidine 0.2 mg Tab RxNorm: 523607 1 Tablet(s) PO TID 01/13/201009/2009 Inactive Alprazolam 0.5 mg Tab RxNorm: 486708 1 Tablet(s) PO BID PRN 010 01/12/2010 Inactive Hydrocodone-Acetaminophen 10 mg-750 mg Tab RxNorm: 352942 1 Tablet(s) PO Q4H PRN 01/13/2010 01/12/2010 Inactive ANGELIQ 1 mg-0.5 mg Tab RxNorm: 1726785 1 Tablet(s) PO QD 12/27/2009 01/23/2010 Inactive Lasix 40 mg Tab RxNorm: 542267 1 Tablet(s) PO QAM 12/14/2009 06/11/20 10 Inactive Vitamin B12 1000mcg Tablet RxNorm: 1 Tablet(s) PO QD No Start Date Active cyclobenzaprine 10 mg tablet RxNorm: 142787 1 Tablet(s) PO TID as needed DO NOT USE WITH BACLOFEN No Start Date Active Vitamin D 5,000 unit Tab RxNorm: 1 Tablet(s) PO QD No Start Date Active vitamin E (dl, acetate) 400 unit Cap RxNorm: 719800 1 Capsule(s ) PO QD No Start Date Active Benadryl 25 mg Cap RxNorm: 6104580 Capsule(s) PO PRN No Start Date Inactive amitriptyline 100 mg tablet RxNorm: 976770 1 Tablet(s) PO QHS No St art Date 11/27/2016 Inactive Zithromax Z-Dustin 250 mg tablet RxNorm: 235966 Tablet(s) PO as di rected No Start Date 07/22/2013 Inactive Klor-Con 8 mEq tablet,extended release RxNorm: 311212 1 Tablet( s) PO BID No Start Date 07/28/2012 Inactive scopolamine 1.5 mg 72 hr Transderm Patch RxNorm: 074688 Application TD Q72H for motion sickness No Start Date 05/25/2013 Inactive Klonopin 1 mg tablet RxNorm: 165753 1-2 Tablet(s) PO QHS as nee ded for sleep No Start Date 06/20/2015 Inactive Klor-Con M20 mEq tablet,extended release RxNorm: 338052 2 Tablet(s) PO BID to use with lasix No Start Date 11/11/2013 Inactive Bystolic 5 mg tablet RxNorm: 686883 1 Tablet(s) PO QD No Start Date 1 Inactive Bystolic 10 mg tablet RxNorm: 508834 1 Tablet(s) PO BID No Start Da te 07/06/2015 Inactive Premarin 1.25 mg Tab RxNorm: 875630 Tablet(s) PO 2 -W-, and 1 Ke-Pa-Tma-Sun No Start Date 05/03/2010 Inactive baclofen 20 mg tablet RxNorm: 830532 1 Tablet(s) PO TID as needed for muscle spasm No Start Date 07/22/2015 Inactive hydrocodone-acetaminophen 7.5 mg-650 mg Tab RxNorm: 973380 1 Tablet(s) PO Q4H as needed for pain No Start Date 03/20/2011 Inactive albuterol sulfate 1.25 mg/3 mL Neb Solution RxNorm: 914064 1 Unit Dose INH Q4H 2boxes No Start Date 09/06/2015 Inactive Butrans 20 mcg/hour Transderm Patch RxNorm: 956245 1 TD WEEKLY apply to skin weekly after removing previous. No Start Date 07/22/2013 Inactive Medrol (Dustin) 4 mg tablets in a dose pack RxNorm: 996960 Tablet(s) PO As Directed No Start Date 07/30/2016 Inactive hydrocodone-acetaminophen 10 mg-325 mg Tab RxNorm: 2968563 1-2 Tablet(s) PO TID as needed for pain No Start Date 03/19/2011 Inactive Klonopin 1 mg tablet RxNorm: 735241 1 Tablet(s) PO QHS No Start Date 02/28/2016 Inactive honey topical RxNorm: topical No Start Date 06/16/2018 Inactive Clonidine 0.2 mg Tab RxNorm: 902534 1 Tablet(s) PO TID No Start Date 01/12/2010 Inactive ketorolac 10 mg tablet RxNorm: 439438 1 Tablet(s) PO Q8H No Start D ate 03/18/2012 Inactive as needed for headache Singulair 10 mg Tab RxNorm: 638374 1 Tablet(s) PO QD No Start Date Inactive Premarin 1.25 mg Tab RxNorm: 369639 1 Tablet(s) PO QD No Start Date 1 Inactive Flonase 50 mcg/Actuation Nasal Thornton RxNorm: 3171825 1 Thornton CECELIA AL BID No Start Date 03/18/2012 Inactive Terbinafine 250 mg Tab RxNorm: 213899 1 Tablet(s) PO QD No Start Da te 04/03/2010 Inactive Fexofenadine 180 mg Tab RxNorm: 7125236 1 Tablet(s) PO QD No Start Date 09/06/2015 Inactive baclofen 20 mg tablet RxNorm: 655972 1 Tablet(s) PO TID as needed N o Start Date 05/25/2014 Inactive Diovan 160 mg Tab RxNorm: 119396 1 Tablet(s) PO QD No Start Date 09/12 Inactive mupirocin 2 % topical ointment RxNorm: 290585 1 Application TOP QID No Start Date 04/25/2016 Inactive ZOFRAN ODT 4 mg Tab, Rapid Dissolve RxNorm: 606353 1 Tablet(s) PO Q4H No Start Date 03/18/2012 Inactive as needed for nausea and vomiting Alprazolam 0.5 mg Tab RxNorm: 599003 1 Tablet(s) PO BID PRN No Star t Date 01/12/2010 Inactive cyclobenzaprine 10 mg tablet RxNorm: 954353 1 Tablet(s) PO TID as needed for muscle spasm No Start Date 10/08/2017 Inactive Albuterol 0.083% Aerosol Solution RxNorm: 1 Appl ication INH Q4H Use one ampule every 4 hrs with nebulizer as needed for shortness of breath. No Start Date 10/09/2010 Inactive lorazepam 1 mg tablet RxNorm: 354540 1 1/2 Tablet(s) PO QHS No Star t Date 02/02/2016 Inactive Melatonin 3 mg Tab RxNorm: 704114 Tablet(s) PO PRN No Start Date 07/11 Inactive Medrol (Dustin) 4 mg Tabs in a Dose Pack RxNorm: 587168 Tablet(s) PO N o Start Date 11/28/2010 Inactive lorazepam 1 mg tablet RxNorm: 560317 1 Tablet(s) PO QHS as need ed for sleep No Start Date 01/30/2016 Inactive hydrocodone-acetaminophen 10 mg-325 mg Tab RxNorm: 4469162 1-2 Tablet(s) PO QID as needed for severe pain No Start Date 03/24/2012 Inactive celecoxib 200 mg capsule RxNorm: 294467 1 Capsule(s) PO BID No Star t Date 06/26/2019 Inactive amlodipine 5 mg-benazepril 20 mg capsule RxNorm: 642812 1 Capsu le(s) PO QD No Start Date 04/10/2017 Inactive Bystolic 20 mg tablet RxNorm: 965842 1/2 Tablet(s) PO QAM No Start Date 01/23/2016 Inactive Bystolic 20 mg tablet RxNorm: 826149 1 Tablet(s) PO QAM No Start Da te 04/25/2016 Inactive Ambien 10 mg Tab RxNorm: 247774 1 Tablet(s) PO QHS No Start Date 05/11 Inactive Klor-Con 8 mEq Tab RxNorm: 471837 1 Tablet(s) PO QD when takes lasix No Start Date 03/06/2010 Inactive aspirin 81 mg tablet RxNorm: 090842 1 Tablet(s) PO QD No Start Date 0 01/29/2018 Inactive hydrocodone-acetaminophen 10 mg-325 mg Tab RxNorm: 0518532 1-2 T ablet(s) PO QID No Start Date 01/10/2012 Inactive Bystolic 10 mg tablet RxNorm: 964131 1 Tablet(s) PO QAM take one daily in the morning. No Start Date 05/28/2013 Inactive nystatin 100,000 unit/mL Oral Susp RxNorm: 837481 5 Milliliter( s) PO QID No Start Date 03/18/2012 Inactive swish and spit scopolamine 1.5 mg 72 hr Transderm Patch RxNorm: 279995 1 Unit Dose TD Q72H for motion sickness No Start Date 12/23/2013 Inactive Hydrocodone-Acetaminophen 10 mg-750 mg Tab RxNorm: 520159 1 Tablet(s) PO Q4H PRN No Start Date 01/12/2010 Inactive Soma 350 mg tablet RxNorm: 833861 1 Tablet(s) PO TID as needed for spasm No Start Date 01/12/2013 Inactive baclofen 10 mg tablet RxNorm: 998790 1 Tablet(s) PO TID as needed for muscle spasm No Start Date 09/18/2019 Inactive Soma 350 mg Tab RxNorm: 474103 1 Tablet(s) PO TID for spasm No Star t Date 01/31/2012 Inactive Co Q-10 400 mg capsule RxNorm: 694889 1 Capsule(s) PO QD No Start D ate 01/21/2019 Inactive nystatin 100,000 unit/gram topical cream RxNorm: 615078 Applica tion TOP BID No Start Date 03/22/2015 Inactive Exforge 5 mg-160 mg Tab RxNorm: 895723 1 Tablet(s) PO QD No Start D ate 10/09/2010 Inactive Hydrocodone-Acetaminophen 7.5 mg-650 mg Tab RxNorm: 552722 1 Ta blet(s) PO Q4H No Start Date 03/07/2010 Inactive Robaxin-750 750 mg Tab RxNorm: 016310 1-2 Tablet(s) PO TID prn spasm No Start Date 05/21/2011 Inactive amlodipine 5 mg tablet RxNorm: 258449 1 Tablet(s) PO QHS No Start D ate 09/29/2015 Inactive oxycodone-acetaminophen 10 mg-325 mg tablet RxNorm: 2106526 1-2 Tablet(s) PO Q6H No Start Date 06/16/2018 Inactive Triamterene-Hydrochlorothiazide 75 mg-50 mg Tab RxNorm: 3108 18 1 Tablet(s) PO QD No Start Date 02/08/2010 Inactive Alprazolam 0.5 mg Tab RxNorm: 368328 2 Tablet(s) PO QD prn No Start Date 03/07/2010 Inactive Bystolic 20 mg tablet RxNorm: 935326 1 Tablet(s) PO QAM No Start Da te 08/17/2015 Inactive ketorolac 10 mg tablet RxNorm: 540342 1 Tablet(s) PO QID prn he adache No Start Date 07/17/2012 Inactive acyclovir 800 mg Tab RxNorm: 344999 1 Tablet(s) PO BID No Start Date 03/18/2012 Inactive duloxetine 60 mg capsule,delayed release RxNorm: 599829 1 Capsu le(s) PO QD No Start Date 09/29/2015 Inactive Norvasc 5 mg tablet RxNorm: 649298 1 Tablet(s) PO QHS No Start Date 1 10/18/2014 Inactive promethazine 25 mg tablet RxNorm: 181171 1 Tablet(s) PO Q8H use sparingly No Start Date 07/22/2013 Inactive alprazolam 0.5 mg tablet RxNorm: 295637 3 Tablet(s) PO QHS No Start Date 06/06/2015 Inactive Lunesta 3 mg tablet RxNorm: 090661 1 Tablet(s) PO QHS No Start Date 0 09/20/2017 Inactive hydrocodone-acetaminophen 10 mg-325 mg Tab RxNorm: 9622266 1-2 Tablet(s) PO TID as needed for pain No Start Date 12/10/2011 Inactive Coricidin HBP Cough & Cold 4 mg-30 mg Tab RxNorm: 8642585 Tablet (s) PO PRN No Start Date 10/09/2010 Inactive Bactroban 2 % Ointment RxNorm: 043244 Application TOP QID to so res No Start Date 02/22/2012 Inactive Flonase 50 mcg/actuation Nasal Thornton RxNorm: 958746 2 Thornton CECELIA AL QHS No Start Date 03/03/2014 Inactive Medication Administered No Medication Administered data Immunizations Vaccine Codes Date Status Tetanus, Diptheria, Pertussis CVX: 115 02/27/2014 Results Observation Observation Code Item Item Code Result Date S ervice Location MEAN GLUC 0461946 Calc Mean Gluc 209 mg/dL 02/12/2020 Unkn own GLYCOSYLATED HEMOGLOBIN TEST 99737 Hgb A1c 23670-3 8.9 % 0 02/12/2020 Unknown GFR CALC 3931361 GFR Non Afr Amr >60 mL/min 02/12/2020 Un known GFR CALC 1684714 GFR Afr Amr >60 mL/min 02/12/2020 Unknow n COMPREHENSIVE METABOLIC 28888 AST 27 U/L 2019 Unknown COMPREHENSIVE METABOLIC 13139 ALT 16 U/L 2019 Unknown COMPREHENSIVE METABOLIC 82654 BUN 22 mg/dL 2019 Unknown COMPREHENSIVE METABOLIC 67804 ALBUMIN 3.9 g/dL 2019 Unknown COMPREHENSIVE METABOLIC 25504 CHLORIDE 98 mmol/L 2019 Unknown COMPREHENSIVE METABOLIC 75927 Bili Total 0.5 mg/dL 02/11 Unknown COMPREHENSIVE METABOLIC 85933 ALK PHOS 72 U/L 2019 Unknown COMPREHENSIVE METABOLIC 67734 SODIUM 137 mmol/L 02/11 Unknown COMPREHENSIVE METABOLIC 78172 CREATININE 0.96 mg/dL 12/2019 Unknown COMPREHENSIVE METABOLIC 04869 CALCIUM 9.1 mg/dL 2019 Unknown COMPREHENSIVE METABOLIC 96061 POTASSIUM 4.6 mmol/L 02/11 Unknown COMPREHENSIVE METABOLIC 07669 Total Protein 6.5 g/dL Unknown COMPREHENSIVE METABOLIC 55697 Glucose 129 mg/dL 2019 Unknown COMPREHENSIVE METABOLIC 71365 Bicarbonate 31 mmol/L 12/2019 Unknown COMPREHENSIVE METABOLIC 39977 AGAP 8 mmol/L 2019 Unknown COMPREHENSIVE METABOLIC 53114 AST 15 U/L 2019 Unknown COMPREHENSIVE METABOLIC 69494 ALT 13 U/L 2019 Unknown COMPREHENSIVE METABOLIC 21480 BUN 12 mg/dL 2019 Unknown COMPREHENSIVE METABOLIC 54742 ALBUMIN 3.9 g/dL 2019 Unknown COMPREHENSIVE METABOLIC 77289 CHLORIDE 97 mmol/L 2019 Unknown COMPREHENSIVE METABOLIC 28386 Bili Total 0.4 mg/dL 09/29 Unknown COMPREHENSIVE METABOLIC 78646 ALK PHOS 130 U/L 2019 Unknown COMPREHENSIVE METABOLIC 92658 SODIUM 136 mmol/L 09/29 Unknown COMPREHENSIVE METABOLIC 23853 CREATININE 0.92 mg/dL 09/11 Unknown COMPREHENSIVE METABOLIC 56474 CALCIUM 9.1 mg/dL 2019 Unknown COMPREHENSIVE METABOLIC 82401 POTASSIUM 4.4 mmol/L 09/29 Unknown COMPREHENSIVE METABOLIC 57200 Total Protein 6.2 g/dL Unknown COMPREHENSIVE METABOLIC 97630 Glucose 391 mg/dL 2019 Unknown COMPREHENSIVE METABOLIC 21720 Bicarbonate 30 mmol/L 09/11 Unknown COMPREHENSIVE METABOLIC 22897 AGAP 9 mmol/L 2019 Unknown MEAN GLUC 9823266 Calc Mean Gluc 332 mg/dL 09/29/2019 Unkn own COMPLETE BLOOD COUNT [id number] WBC 7.0 10e9/L 09/29/19 Unknown COMPLETE BLOOD COUNT [id number] RBC 4.69 10e12/L 2019 Unknown COMPLETE BLOOD COUNT [id number] HEMOGLOBIN 14.6 g/dL 09/29/19 Unknown COMPLETE BLOOD COUNT [id number] HEMATOCRIT 45.2 % 09/29/19 Unknown COMPLETE BLOOD COUNT [id number] MCV 96.4 fL 0 Unknown COMPLETE BLOOD COUNT [id number] MCH 31.1 pg 0 Unknown COMPLETE BLOOD COUNT [id number] MCHC 32.3 g/dL 0 Unknown COMPLETE BLOOD COUNT [id number] PLATELET COUNT 209 10e9/L Unknown COMPLETE BLOOD COUNT [id number] Mean Plt Volume 9.8 fL Unknown COMPLETE BLOOD COUNT [id number] Neut Auto 48.1 % 0 Unknown COMPLETE BLOOD COUNT [id number] Lymph Auto 36.5 % 09/29/19 Unknown COMPLETE BLOOD COUNT [id number] Jackson Auto 8.6 % 0 Unknown COMPLETE BLOOD COUNT 9305748 RDW 13.4 % 0 Unknown COMPLETE BLOOD COUNT [id number] Eos Auto 6.5 % 0 Unknown COMPLETE BLOOD COUNT [id number] Baso Auto 0.3 % 0 Unknown COMPLETE BLOOD COUNT [id number] Neutrophil Abs 3.37 10e9/L Unknown COMPLETE BLOOD COUNT [id number] Lymphocyte Abs 2.56 10e9/L Unknown COMPLETE BLOOD COUNT [id number] Monocyte Abs 0.60 10e9/L 09/11 Unknown COMPLETE BLOOD COUNT [id number] Eosinophil Abs 0.46 10e9/L Unknown COMPLETE BLOOD COUNT 0756406 RDW-SD 45.9 fL 0 Unknown COMPLETE BLOOD COUNT [id number] Basophil Abs 0.02 10e9/L 09/11 Unknown LIPID GROUP 70448 Cholesterol 248 mg/dL 09/29/2019 Unkno wn LIPID GROUP 07244 Triglyceride 898 mg/dL 09/29/2019 Unkn own LIPID GROUP 34295 HDL CHOLESTEROL 41 mg/dL 09/29/2019 U nknown LIPID GROUP 70066 Chol/HDL Ratio 6.05 ratio 09/29/2019 U nknown LIPID GROUP 44057 NON-HDL Chol 207 mg/dL 09/29/2019 Unkn own LIPID GROUP 92001 LDL Cholesterol N/A Trig >400 020 Unknown GLYCOSYLATED HEMOGLOBIN TEST 89265 Hgb A1c 90403-3 13.2 % 0 09/29/2019 Unknown FREE T4 86830 T4 Free 0.75 ng/dL 09/29/2019 Unknown GFR CALC 6131125 GFR Non Afr Amr >60 mL/min 09/29/2019 Un known GFR CALC 7387923 GFR Afr Amr >60 mL/min 09/29/2019 Unknow n THYROID STIMULATING HORMONE 79348 TSH 4.245 uIU/mL 09/29/2019 Unknown COMPLETE BLOOD COUNT [id number] WBC 10.7 10e9/L 018 Unknown COMPLETE BLOOD COUNT [id number] RBC 4.59 10e12/L 2017 Unknown COMPLETE BLOOD COUNT [id number] HEMOGLOBIN 14.8 g/dL 12/11/19 18 Unknown COMPLETE BLOOD COUNT [id number] HEMATOCRIT 44.9 % 12/11/19 18 Unknown COMPLETE BLOOD COUNT [id number] MCV 97.8 fL 8 Unknown COMPLETE BLOOD COUNT 9373883 MCH 32.2 pg 8 Unknown COMPLETE BLOOD COUNT 8670128 MCHC 33.0 g/dL 8 Unknown COMPLETE BLOOD COUNT [id number] PLATELET COUNT 261 10e9/L 10/2017 Unknown COMPLETE BLOOD COUNT 0905462 Mean Plt Volume 9.5 fL 10/2017 Unknown COMPLETE BLOOD COUNT 6901154 Neut Auto 59.9 % 8 Unknown COMPLETE BLOOD COUNT [id number] Lymph Auto 27.4 % 12/11/19 18 Unknown COMPLETE BLOOD COUNT [id number] Jackson Auto 8.2 % 8 Unknown COMPLETE BLOOD COUNT [id number] RDW 13.3 % 8 Unknown COMPLETE BLOOD COUNT 6288825 Eos Auto 4.1 % 8 Unknown COMPLETE BLOOD COUNT 9885295 Baso Auto 0.4 % 8 Unknown COMPLETE BLOOD COUNT [id number] Neutrophil Abs 6.41 10e9/L Unknown COMPLETE BLOOD COUNT [id number] Lymphocyte Abs 2.93 10e9/L Unknown COMPLETE BLOOD COUNT [id number] Monocyte Abs 0.88 10e9/L 10/2017 Unknown COMPLETE BLOOD COUNT [id number] Eosinophil Abs 0.44 10e9/L Unknown COMPLETE BLOOD COUNT [id number] RDW-SD 46.2 fL 8 Unknown COMPLETE BLOOD COUNT [id number] Basophil Abs 0.04 10e9/L 10/2017 Unknown THYROID STIMULATING HORMONE 92322 TSH 4.015 uIU/mL 12/10/2017 Unknown COMPREHENSIVE METABOLIC 50839 AST 25 U/L 2017 Unknown COMPREHENSIVE METABOLIC 84289 ALT 17 U/L 2017 Unknown COMPREHENSIVE METABOLIC 89312 BUN 19 mg/dL 2017 Unknown COMPREHENSIVE METABOLIC 42235 ALBUMIN 4.0 g/dL 2017 Unknown COMPREHENSIVE METABOLIC 75386 CHLORIDE 91 mmol/L 2017 Unknown COMPREHENSIVE METABOLIC 96029 Bili Total 0.5 mg/dL 12/10 Unknown COMPREHENSIVE METABOLIC 94160 ALK PHOS 75 U/L 2017 Unknown COMPREHENSIVE METABOLIC 42985 SODIUM 136 mmol/L 12/10 Unknown COMPREHENSIVE METABOLIC 32761 CREATININE 1.05 mg/dL 10/2017 Unknown COMPREHENSIVE METABOLIC 45902 CALCIUM 8.9 mg/dL 2017 Unknown COMPREHENSIVE METABOLIC 23333 POTASSIUM 3.4 mmol/L 12/10 Unknown COMPREHENSIVE METABOLIC 31849 Total Protein 6.5 g/dL Unknown COMPREHENSIVE METABOLIC 09685 Glucose 138 mg/dL 2017 Unknown COMPREHENSIVE METABOLIC 07479 Bicarbonate 35 mmol/L 10/2017 Unknown COMPREHENSIVE METABOLIC 63182 AGAP 10 mmol/L 2017 Unknown MEAN GLUC 9758862 Calc Mean Gluc 171 mg/dL 12/10/2017 Unkn own LIPID GROUP 25502 Cholesterol 204 mg/dL 12/10/2017 Unkno wn LIPID GROUP 16135 Triglyceride 411 mg/dL 12/10/2017 Unkn own LIPID GROUP 22795 HDL CHOLESTEROL 50 mg/dL 12/10/2017 U nknown LIPID GROUP 51772 Chol/HDL Ratio 4.08 ratio 12/10/2017 U nknown LIPID GROUP 30846 NON-HDL Chol 154 mg/dL 12/10/2017 Unkn own LIPID GROUP 32687 LDL Cholesterol N/A Trig >400 04/02/2 018 Unknown GLYCOSYLATED HEMOGLOBIN TEST 19591 Hgb A1c 02064-7 7.6 % 0 12/10/2017 Unknown FREE T4 89345 T4 Free 1.40 ng/dL 12/10/2017 Unknown GFR CALC 4129168 GFR Non Afr Amr 55 mL/min 12/10/2017 Unk nown GFR CALC 0378514 GFR Afr Amr >60 mL/min 12/10/2017 Unknow n GFR CALC 4450894 GFR Non Afr Amr 48 mL/min 06/28/2017 Unk nown GFR CALC 7423922 GFR Afr Amr 59 mL/min 06/28/2017 Unknown COMPREHENSIVE METABOLIC 61948 AST 32 U/L 2016 Unknown COMPREHENSIVE METABOLIC 48889 ALT 22 U/L 2016 Unknown COMPREHENSIVE METABOLIC 48635 BUN 23 mg/dL 2016 Unknown COMPREHENSIVE METABOLIC 62890 ALBUMIN 4.7 g/dL 2016 Unknown COMPREHENSIVE METABOLIC 83827 CHLORIDE 89 mmol/L 2016 Unknown COMPREHENSIVE METABOLIC 88204 Bili Total 0.5 mg/dL 06/28 Unknown COMPREHENSIVE METABOLIC 84402 ALK PHOS 90 U/L 2016 Unknown COMPREHENSIVE METABOLIC 97144 SODIUM 135 mmol/L 06/28 Unknown COMPREHENSIVE METABOLIC 16545 CREATININE 1.18 mg/dL 06/10 Unknown COMPREHENSIVE METABOLIC 96593 CALCIUM 9.7 mg/dL 2016 Unknown COMPREHENSIVE METABOLIC 58799 POTASSIUM 3.5 mmol/L 06/28 Unknown COMPREHENSIVE METABOLIC 76777 Total Protein 7.7 g/dL Unknown COMPREHENSIVE METABOLIC 01122 Glucose 129 mg/dL 2016 Unknown COMPREHENSIVE METABOLIC 45821 Bicarbonate 34 mmol/L 06/10 Unknown COMPREHENSIVE METABOLIC 38681 AGAP 12 mmol/L 2016 Unknown LIPID GROUP 01137 HDL TEST 64 MG/DL 08/27/2014 Unknown LIPID GROUP 34701 TRIG 222 MG/DL 08/27/2014 Unknown LIPID GROUP 70550 TEST LDL 209 MG/DL 08/27/2014 Unknown LIPID GROUP 10323 CHOL 317 MG/DL 08/27/2014 Unknown LIPID GROUP 77083 RCHOL/HDL 4.95 RATIO 08/27/2014 Unknow n LIPID GROUP 08699 NON-HDL CH 253 MG/DL 08/27/2014 Unknow n GFR CALC 3074667 GFR AA >60 ML/MIN 08/27/2014 Unknown GFR CALC 3124364 GFR NON-AA >60 ML/MIN 08/27/2014 Unknown COMPLETE BLOOD COUNT 6967039 WBC 7.0 10e9/L 08/27/20 14 Unknown COMPLETE BLOOD COUNT 4338573 RBC 4.98 10e12/L 2013 Unknown COMPLETE BLOOD COUNT 4950937 HGB 15.6 g/dL 4 Unknown COMPLETE BLOOD COUNT 9953775 HCT DET 46.5 % 4 Unknown COMPLETE BLOOD COUNT 2346337 MCV 93.4 fL 4 Unknown COMPLETE BLOOD COUNT 7658577 MCH 31.3 pg 4 Unknown COMPLETE BLOOD COUNT 3346527 MCHC 33.5 g/dL 4 Unknown COMPLETE BLOOD COUNT 9126990 PLT 309 10e9/L 08/27/20 14 Unknown COMPLETE BLOOD COUNT 8730007 MPV 9.6 fL 4 Unknown COMPLETE BLOOD COUNT 8536595 CADEN % 57.2 % 4 Unknown COMPLETE BLOOD COUNT [id number] LY % 33.2 % 4 Unknown COMPLETE BLOOD COUNT [id number] MON % 7.3 % 4 Unknown COMPLETE BLOOD COUNT 2650227 EOS % 2.0 % 4 Unknown COMPLETE BLOOD COUNT 9692111 BASO % 0.3 % 4 Unknown COMPLETE BLOOD COUNT 7803596 RDW 13.7 % 4 Unknown COMPLETE BLOOD COUNT 9305202 ABS CADEN 4.00 10e9/L 014 Unknown COMPLETE BLOOD COUNT 1211785 ABS LYMPH 2.32 10e9/L 014 Unknown COMPLETE BLOOD COUNT 8112184 ABS MONO 0.51 10e9/L 014 Unknown COMPLETE BLOOD COUNT [id number] ABS EOS 0.14 10e9/L 014 Unknown COMPLETE BLOOD COUNT 9373883 ABS BASO 0.02 10e9/L 014 Unknown COMPLETE BLOOD COUNT 7044426 RDW-SD 45.1 fL 4 Unknown COMPREHENSIVE METABOLIC 85568 AST 13 U/L 2013 Unknown COMPREHENSIVE METABOLIC 53909 ALT 11 IU/L 2013 Unknown COMPREHENSIVE METABOLIC 69295 BUN 23 MG/DL 2013 Unknown COMPREHENSIVE METABOLIC 39722 ALBUMIN 4.4 GM/DL 2013 Unknown COMPREHENSIVE METABOLIC 13736 CHLORIDE 99 MMOL/L 2013 Unknown COMPREHENSIVE METABOLIC 44391 BILI TOT 0.5 MG/DL 2013 Unknown COMPREHENSIVE METABOLIC 04668 ALK PHOS 56 U/L 2013 Unknown COMPREHENSIVE METABOLIC 07482 SODIUM 138 MMOL/L 08/27 Unknown COMPREHENSIVE METABOLIC 31595 CREATININE 0.95 MG/DL 08/10 Unknown COMPREHENSIVE METABOLIC 63367 CALCIUM 9.8 MG/DL 2013 Unknown COMPREHENSIVE METABOLIC 01229 POTASSIUM 3.5 MMOL/L 08/27 Unknown COMPREHENSIVE METABOLIC 84369 PROT TOT 6.8 GM/DL 2013 Unknown COMPREHENSIVE METABOLIC 58690 Glucose 90 MG/DL 2013 Unknown COMPREHENSIVE METABOLIC 92866 BICARB 34 MMOL/L 2013 Unknown COMPREHENSIVE METABOLIC 30048 ANION GAP 5 MEQ/L 2013 Unknown LIPASE 31317 LIPASE 11 IU/L 07/21/2014 Unknown AMYLASE 98654 AMYLASE 39 IU/L 07/21/2014 Unknown HEMOGLOBIN A1C (GLYCOSYLATED) 6145935 A1C [facility] 56241-4 6.2 % 03/05/2013 Unknown THYROID STIMULATING HORMONE 45665 TSH 6.986 uIU/ML 03/05/2013 Unknown COMPLETE BLOOD COUNT 8082571 WBC 12.7 10e9/L 013 Unknown COMPLETE BLOOD COUNT 6108113 RBC 4.53 10e12/L 2012 Unknown COMPLETE BLOOD COUNT 4002547 HGB 14.7 g/dL 3 Unknown COMPLETE BLOOD COUNT 6180307 HCT DET 43.1 % 3 Unknown COMPLETE BLOOD COUNT 8992898 MCV 95.1 fL 3 Unknown COMPLETE BLOOD COUNT 9844490 MCH 32.5 pg 3 Unknown COMPLETE BLOOD COUNT 4408703 MCHC 34.1 g/dL 3 Unknown COMPLETE BLOOD COUNT 5628676 PLT 346 10e9/L 03/05/20 13 Unknown COMPLETE BLOOD COUNT 6524332 MPV 9.5 fL 3 Unknown COMPLETE BLOOD COUNT 3430214 CADEN % 67.6 % 3 Unknown COMPLETE BLOOD COUNT 5542290 LY % 22.1 % 3 Unknown COMPLETE BLOOD COUNT 4684940 MON % 6.6 % 3 Unknown COMPLETE BLOOD COUNT 3268750 EOS % 3.3 % 3 Unknown COMPLETE BLOOD COUNT 6965774 BASO % 0.4 % 3 Unknown COMPLETE BLOOD COUNT 1450319 RDW 14.0 % 3 Unknown COMPLETE BLOOD COUNT 8703601 ABS CADEN 8.59 10e9/L 013 Unknown COMPLETE BLOOD COUNT 7243772 ABS LYMPH 2.81 10e9/L 013 Unknown COMPLETE BLOOD COUNT 8403706 ABS MONO 0.84 10e9/L 013 Unknown COMPLETE BLOOD COUNT [id number] ABS EOS 0.42 10e9/L 013 Unknown COMPLETE BLOOD COUNT [id number] ABS BASO 0.05 10e9/L 013 Unknown COMPLETE BLOOD COUNT 8363461 RDW-SD 46.0 fL 3 Unknown FREE T4 91481 FREE T4 1.14 NG/DL 03/05/2013 Unknown COMPREHENSIVE METABOLIC 84476 AST 17 U/L 2012 Unknown COMPREHENSIVE METABOLIC 90257 ALT 12 IU/L 2012 Unknown COMPREHENSIVE METABOLIC 42916 BUN 24 MG/DL 2012 Unknown COMPREHENSIVE METABOLIC 34617 ALBUMIN 4.2 GM/DL 2012 Unknown COMPREHENSIVE METABOLIC 11755 CHLORIDE 93 MMOL/L 2012 Unknown COMPREHENSIVE METABOLIC 02740 BILI TOT 0.5 MG/DL 2012 Unknown COMPREHENSIVE METABOLIC 68222 ALK PHOS 75 U/L 2012 Unknown COMPREHENSIVE METABOLIC 48351 SODIUM 141 MMOL/L 03/05 Unknown COMPREHENSIVE METABOLIC 77081 CREATININE 1.36 MG/DL 02/09 Unknown COMPREHENSIVE METABOLIC 07169 CALCIUM 9.2 MG/DL 2012 Unknown COMPREHENSIVE METABOLIC 36738 POTASSIUM 3.1 MMOL/L 03/05 Unknown COMPREHENSIVE METABOLIC 95734 PROT TOT 6.9 GM/DL 2012 Unknown COMPREHENSIVE METABOLIC 86238 Glucose 123 MG/DL 2012 Unknown COMPREHENSIVE METABOLIC 30593 BICARB 36 MMOL/L 2012 Unknown COMPREHENSIVE METABOLIC 12862 ANION GAP 12 MEQ/L 2012 Unknown GFR CALC 9379876 GFR AA 51.0L ML/MIN 03/05/2013 Unknow n GFR CALC 2190494 GFR NON-AA 42.0L ML/MIN 03/05/2013 Unkno wn COMPREHENSIVE METABOLIC 85279 AST 14 U/L 2012 Unknown COMPREHENSIVE METABOLIC 73060 ALT 11 IU/L 2012 Unknown COMPREHENSIVE METABOLIC 05219 BUN 16 MG/DL 2012 Unknown COMPREHENSIVE METABOLIC 32182 ALBUMIN 4.2 GM/DL 2012 Unknown COMPREHENSIVE METABOLIC 17436 CHLORIDE 98 MMOL/L 2012 Unknown COMPREHENSIVE METABOLIC 65260 BILI TOT 0.4 MG/DL 2012 Unknown COMPREHENSIVE METABOLIC 69680 ALK PHOS 77 U/L 2012 Unknown COMPREHENSIVE METABOLIC 48111 SODIUM 139 MMOL/L 09/25 Unknown COMPREHENSIVE METABOLIC 94571 CREATININE 0.86 MG/DL 09/10 Unknown COMPREHENSIVE METABOLIC 34481 CALCIUM 9.5 MG/DL 2012 Unknown COMPREHENSIVE METABOLIC 51034 POTASSIUM 3.8 MMOL/L 09/25 Unknown COMPREHENSIVE METABOLIC 37001 PROT TOT 6.8 GM/DL 2012 Unknown COMPREHENSIVE METABOLIC 15459 Glucose 91 MG/DL 2012 Unknown COMPREHENSIVE METABOLIC 27250 BICARB 32 MMOL/L 2012 Unknown COMPREHENSIVE METABOLIC 97894 ANION GAP 9 MEQ/L 2012 Unknown FREE T4 68724 FREE T4 0.98 NG/DL 09/25/2012 Unknown THYROID STIMULATING HORMONE 91202 TSH 1.736 uIU/ML 09/25/2012 Unknown C-REACTIVE PROTEIN (CRP) QUANT 62328 CRP 2.3 MG/DL 09/25/2012 Unknown COMPLETE BLOOD COUNT [id number] WBC 11.9 10e9/L 013 Unknown COMPLETE BLOOD COUNT [id number] RBC 4.87 10e12/L 2012 Unknown COMPLETE BLOOD COUNT 1697360 HGB 15.1 g/dL 3 Unknown COMPLETE BLOOD COUNT [id number] HCT DET 44.8 % 3 Unknown COMPLETE BLOOD COUNT 0956083 MCV 92.0 fL 3 Unknown COMPLETE BLOOD COUNT 4058996 MCH 31.0 pg 3 Unknown COMPLETE BLOOD COUNT 7437608 MCHC 33.7 g/dL 3 Unknown COMPLETE BLOOD COUNT 0128842 PLT 343 10e9/L 09/25/19 13 Unknown COMPLETE BLOOD COUNT [id number] MPV 9.0 fL 3 Unknown COMPLETE BLOOD COUNT [id number] CADEN % 68.2 % 3 Unknown COMPLETE BLOOD COUNT [id number] LY % 22.4 % 3 Unknown COMPLETE BLOOD COUNT [id number] MON % 6.4 % 3 Unknown COMPLETE BLOOD COUNT [id number] EOS % 2.7 % 3 Unknown COMPLETE BLOOD COUNT [id number] BASO % 0.3 % 3 Unknown COMPLETE BLOOD COUNT [id number] RDW 13.8 % 3 Unknown COMPLETE BLOOD COUNT [id number] ABS CADEN 8.12 10e9/L 013 Unknown COMPLETE BLOOD COUNT [id number] ABS LYMPH 2.67 10e9/L 013 Unknown COMPLETE BLOOD COUNT [id number] ABS MONO 0.76 10e9/L 013 Unknown COMPLETE BLOOD COUNT [id number] ABS EOS 0.32 10e9/L 013 Unknown COMPLETE BLOOD COUNT [id number] ABS BASO 0.04 10e9/L 013 Unknown COMPLETE BLOOD COUNT [id number] RDW-SD 45.6 fL 3 Unknown GFR CALC [id number] GFR AA >60 ML/MIN 09/25/2012 Unknown GFR CALC [id number] GFR NON-AA >60 ML/MIN 09/25/2012 Unknown ERYTHROCYTE SEDIMENTATION RATE [id number] ESR 19 MM/HR 05/06/2012 Unknown VITAMIN B 12 FOLIC ACID [id number] VIT B 12 922 PG/ML 04/11 Unknown VITAMIN B 12 FOLIC ACID [id number] FOLIC ACID 13.6 NG/ML Unknown URIC ACID [id number] URIC ACID 7.8 MG/DL 05/06/2012 Unknown COMPLETE BLOOD COUNT 71275 WBC 11.9 10e9/L 012 Unknown COMPLETE BLOOD COUNT 94094 RBC 5.30 10e12/L 2011 Unknown COMPLETE BLOOD COUNT 99537 HGB 16.6 g/dL 2 Unknown COMPLETE BLOOD COUNT 69172 HCT DET 47.2 % 2 Unknown COMPLETE BLOOD COUNT 38433 MCV 89.1 fL 2 Unknown COMPLETE BLOOD COUNT 57423 MCH 31.3 pg 2 Unknown COMPLETE BLOOD COUNT 09761 MCHC 35.2 g/dL 2 Unknown COMPLETE BLOOD COUNT 74675 PLT 362 10e9/L 05/06/20 12 Unknown COMPLETE BLOOD COUNT 97736 MPV 9.4 fL 2 Unknown COMPLETE BLOOD COUNT 23195 CADEN % 68.2 % 2 Unknown COMPLETE BLOOD COUNT 60374 LY % 22.0 % 2 Unknown COMPLETE BLOOD COUNT 43974 MON % 6.9 % 2 Unknown COMPLETE BLOOD COUNT 26690 EOS % 2.6 % 2 Unknown COMPLETE BLOOD COUNT 48665 BASO % 0.3 % 2 Unknown COMPLETE BLOOD COUNT 55005 RDW 12.8 % 2 Unknown COMPLETE BLOOD COUNT 39358 ABS CADEN 8.12 10e9/L 012 Unknown COMPLETE BLOOD COUNT 69867 ABS LYMPH 2.62 10e9/L 012 Unknown COMPLETE BLOOD COUNT 26897 ABS MONO 0.82 10e9/L 012 Unknown COMPLETE BLOOD COUNT 13440 ABS EOS 0.31 10e9/L 012 Unknown COMPLETE BLOOD COUNT 42929 ABS BASO 0.04 10e9/L 012 Unknown COMPLETE BLOOD COUNT 68915 RDW-SD 41.5 fL 2 Unknown GFR CALC [id number] GFR AA >60 ML/MIN 05/06/2012 Unknown GFR CALC [id number] GFR NON-AA 58.0L ML/MIN 05/06/2012 Unkno wn FREE T4 37498 FREE T4 1.15 NG/DL 05/06/2012 Unknown THYROID STIMULATING HORMONE 38763 TSH 1.568 uIU/ML 05/06/2012 Unknown COMPREHENSIVE METABOLIC 74437 AST 20 U/L 2011 Unknown COMPREHENSIVE METABOLIC 98006 ALT 12 IU/L 2011 Unknown COMPREHENSIVE METABOLIC 06670 BUN 20 MG/DL 2011 Unknown COMPREHENSIVE METABOLIC 84936 ALBUMIN 4.5 GM/DL 2011 Unknown COMPREHENSIVE METABOLIC 01791 CHLORIDE 91 MMOL/L 2011 Unknown COMPREHENSIVE METABOLIC 98526 BILI TOT 0.4 MG/DL 2011 Unknown COMPREHENSIVE METABOLIC 98695 ALK PHOS 73 U/L 2011 Unknown COMPREHENSIVE METABOLIC 40044 SODIUM 139 MMOL/L 05/06 Unknown COMPREHENSIVE METABOLIC 07221 CREATININE 1.02 MG/DL 04/11 Unknown COMPREHENSIVE METABOLIC 15426 CALCIUM 9.7 MG/DL 2011 Unknown COMPREHENSIVE METABOLIC 55667 POTASSIUM 3.1 MMOL/L 05/06 Unknown COMPREHENSIVE METABOLIC 93381 PROT TOT 7.3 GM/DL 2011 Unknown COMPREHENSIVE METABOLIC 20431 Glucose 118 MG/DL 2011 Unknown COMPREHENSIVE METABOLIC 56490 BICARB 33 MMOL/L 2011 Unknown COMPREHENSIVE METABOLIC 96366 ANION GAP 15 MEQ/L 2011 Unknown Procedures Procedure Codes Date COMPREHEN METABOLIC PANEL CPT-4: 05166 02/12/2020 A1C HPLC CPT-4: 09092 02/12/2020 ROUTINE VENIPUNCTURE CPT-4: 37990 09/29/2019 URINALYSIS NONAUTO W/O SCOPE CPT-4: 86228 09/29/2019 COMPREHEN METABOLIC PANEL CPT-4: 96273 09/29/2019 LIPID PANEL CPT-4: 62817 09/29/2019 A1C HPLC CPT-4: 86348 09/29/2019 ASSAY OF FREE THYROXINE CPT-4: 39567 09/29/2019 ASSAY THYROID STIM HORMONE CPT-4: 12112 09/29/2019 COMPLETE CBC W/AUTO DIFF WBC CPT-4: 74800 09/29/2019 URINALYSIS NONAUTO W/O SCOPE CPT-4: 46684 09/30/2018 MICROALBUMIN QUANTITATIVE CPT-4: 35634 09/30/2018 CEFTRIAXONE SODIUM INJECTION CPT-4: J0696 06/19/2018 THER/PROPH/DIAG INJ SC/IM CPT-4: 63406 06/19/2018 CEFTRIAXONE SODIUM INJECTION CPT-4: J0696 06/17/2018 THER/PROPH/DIAG INJ SC/IM CPT-4: 91472 06/17/2018 THER/PROPH/DIAG INJ SC/IM CPT-4: 50922 05/16/2018 KETOROLAC TROMETHAMINE INJ CPT-4: J1885 05/16/2018 ONDANSETRON HCL INJECTION CPT-4: J2405 05/16/2018 THER/PROPH/DIAG INJ SC/IM CPT-4: 43831 05/16/2018 ROUTINE VENIPUNCTURE CPT-4: 77281 03/20/2018 COMPREHEN METABOLIC PANEL CPT-4: 13133 03/20/2018 DEXAMETHASONE SODIUM PHOS CPT-4: J1100 02/11/2018 THER/PROPH/DIAG INJ SC/IM CPT-4: 36653 02/11/2018 TRIAMCINOLONE ACET INJ NOS CPT-4: J3301 02/11/2018 CEFTRIAXONE SODIUM INJECTION CPT-4: J0696 02/01/2018 THER/PROPH/DIAG INJ SC/IM CPT-4: 80585 02/01/2018 CEFTRIAXONE SODIUM INJECTION CPT-4: J0696 01/30/2018 THER/PROPH/DIAG INJ SC/IM CPT-4: 81749 01/30/2018 ROUTINE VENIPUNCTURE CPT-4: 95957 12/10/2017 ASSAY OF FREE THYROXINE CPT-4: 88637 12/10/2017 ASSAY THYROID STIM HORMONE CPT-4: 01385 12/10/2017 COMPREHEN METABOLIC PANEL CPT-4: 86012 12/10/2017 COMPLETE CBC W/AUTO DIFF WBC CPT-4: 18079 12/10/2017 LIPID PANEL CPT-4: 63456 12/10/2017 A1C HPLC CPT-4: 06348 12/10/2017 CEFTRIAXONE SODIUM INJECTION CPT-4: J0696 12/10/2017 THER/PROPH/DIAG INJ SC/IM CPT-4: 45906 12/10/2017 CEFTRIAXONE SODIUM INJECTION CPT-4: J0696 12/07/2017 THER/PROPH/DIAG INJ SC/IM CPT-4: 79978 12/07/2017 DEXAMETHASONE SODIUM PHOS CPT-4: J1100 12/07/2017 THER/PROPH/DIAG INJ SC/IM CPT-4: 10888 12/07/2017 CEFTRIAXONE SODIUM INJECTION CPT-4: J0696 10/08/2017 THER/PROPH/DIAG INJ SC/IM CPT-4: 47840 10/08/2017 CEFTRIAXONE SODIUM INJECTION CPT-4: J0696 09/21/2017 THER/PROPH/DIAG INJ SC/IM CPT-4: 11859 09/21/2017 CEFTRIAXONE SODIUM INJECTION CPT-4: J0696 09/20/2017 THER/PROPH/DIAG INJ SC/IM CPT-4: 91543 09/20/2017 REMOVAL OF NAIL PLATE CPT-4: 78256 08/29/2017 THER/PROPH/DIAG INJ SC/IM CPT-4: 21547 08/29/2017 TRIAMCINOLONE ACET INJ NOS CPT-4: J3301 08/29/2017 CEFTRIAXONE SODIUM INJECTION CPT-4: J0696 08/29/2017 THER/PROPH/DIAG INJ SC/IM CPT-4: 26382 08/29/2017 DESTRUCT PREMALG LESION (Cryosurgery) CPT-4: 01980 ROUTINE VENIPUNCTURE CPT-4: 51114 06/27/2017 ASSAY OF FREE THYROXINE CPT-4: 16528 06/27/2017 ASSAY THYROID STIM HORMONE CPT-4: 85776 06/27/2017 COMPREHEN METABOLIC PANEL CPT-4: 29151 06/27/2017 COMPLETE CBC W/AUTO DIFF WBC CPT-4: 77641 06/27/2017 EXC TR-EXT B9+REECE 0.5 CM< CPT-4: 67415 01/24/2017 THER/PROPH/DIAG INJ SC/IM CPT-4: 29893 08/02/2016 DEXAMETHASONE SODIUM PHOS CPT-4: J1100 08/02/2016 DESTRUCT PREMALG LESION (Cryosurgery) CPT-4: 06717 EXC TR-EXT B9+REECE 0.5 CM< CPT-4: 14787 08/01/2016 AEROBIC WOUND CULTURE & STN CPT-4: 68770 07/06/2016 CEFTRIAXONE SODIUM INJECTION CPT-4: J0696 05/25/2016 THER/PROPH/DIAG INJ SC/IM CPT-4: 03550 05/25/2016 THER/PROPH/DIAG INJ SC/IM CPT-4: 15924 04/26/2016 DEXAMETHASONE SODIUM PHOS CPT-4: J1100 04/26/2016 CEFTRIAXONE SODIUM INJECTION CPT-4: J0696 04/26/2016 THER/PROPH/DIAG INJ SC/IM CPT-4: 39206 04/26/2016 THER/PROPH/DIAG INJ SC/IM CPT-4: 40835 02/09/2016 TRIAMCINOLONE ACET INJ NOS CPT-4: J3301 02/09/2016 URINALYSIS NONAUTO W/O SCOPE CPT-4: 11496 01/24/2016 URINE CULTURE/ COLONY COUNT CPT-4: 60165 01/24/2016 THER/PROPH/DIAG INJ SC/IM CPT-4: 77885 12/08/2015 TRIAMCINOLONE ACET INJ NOS CPT-4: J3301 12/08/2015 THER/PROPH/DIAG INJ SC/IM CPT-4: 51060 10/07/2015 TRIAMCINOLONE ACET INJ NOS CPT-4: J3301 10/07/2015 DESTRUCT PREMALG LESION (Cryosurgery) CPT-4: 40880 THER/PROPH/DIAG INJ SC/IM CPT-4: 17462 03/16/2015 METHYLPREDNISOLONE 40 MG INJ CPT-4: J1030 03/16/2015 DESTRUCT PREMALG LESION (Cryosurgery) CPT-4: 07320 THER/PROPH/DIAG INJ SC/IM CPT-4: 28894 09/11/2014 METHYLPREDNISOLONE 40 MG INJ CPT-4: J1030 09/11/2014 TRIAMCINOLONE ACET INJ NOS CPT-4: J3301 09/11/2014 CEFTRIAXONE SODIUM INJECTION CPT-4: J0696 09/11/2014 THER/PROPH/DIAG INJ SC/IM CPT-4: 91096 09/11/2014 ROUTINE VENIPUNCTURE CPT-4: 39729 08/27/2014 COMPREHEN METABOLIC PANEL CPT-4: 96286 08/27/2014 COMPLETE CBC W/AUTO DIFF WBC CPT-4: 34487 08/27/2014 LIPID PANEL CPT-4: 24090 08/27/2014 ROUTINE VENIPUNCTURE CPT-4: 91025 07/21/2014 ASSAY OF AMYLASE CPT-4: 95941 07/21/2014 ASSAY OF LIPASE CPT-4: 24568 07/21/2014 THER/PROPH/DIAG INJ SC/IM CPT-4: 05223 07/15/2014 TRIAMCINOLONE ACET INJ NOS CPT-4: J3301 07/15/2014 ROUTINE VENIPUNCTURE CPT-4: 10825 05/14/2014 ASSAY OF FREE THYROXINE CPT-4: 40307 05/14/2014 ASSAY THYROID STIM HORMONE CPT-4: 62847 05/14/2014 COMPREHEN METABOLIC PANEL CPT-4: 39351 05/14/2014 COMPLETE CBC W/AUTO DIFF WBC CPT-4: 10870 05/14/2014 LIPID PANEL CPT-4: 61501 05/14/2014 CEFTRIAXONE SODIUM INJECTION CPT-4: J0696 04/21/2014 THER/PROPH/DIAG INJ SC/IM CPT-4: 76688 04/21/2014 THER/PROPH/DIAG INJ SC/IM CPT-4: 61108 04/21/2014 TRIAMCINOLONE ACET INJ NOS CPT-4: J3301 04/21/2014 THER/PROPH/DIAG INJ SC/IM CPT-4: 44273 03/04/2014 METHYLPREDNISOLONE 40 MG INJ CPT-4: J1030 03/04/2014 TRIAMCINOLONE ACET INJ NOS CPT-4: J3301 03/04/2014 CEFTRIAXONE SODIUM INJECTION CPT-4: J0696 03/04/2014 THER/PROPH/DIAG INJ SC/IM CPT-4: 91230 03/04/2014 TDAP VACCINE 7 YRS/> IM CPT-4: 35562 02/27/2014 IMMUNIZATION ADMIN CPT-4: 28017 02/27/2014 DESTRUCT PREMALG LESION (Cryosurgery) CPT-4: 22923 DESTRUCT PREMALG LES 2-14 CPT-4: 66214 01/13/2014 THER/PROPH/DIAG INJ SC/IM CPT-4: 68168 10/21/2013 METHYLPREDNISOLONE 40 MG INJ CPT-4: J1030 10/21/2013 TRIAMCINOLONE ACET INJ NOS CPT-4: J3301 10/21/2013 CEFTRIAXONE SODIUM INJECTION CPT-4: J0696 08/27/2013 THER/PROPH/DIAG INJ SC/IM CPT-4: 11541 08/27/2013 THER/PROPH/DIAG INJ SC/IM CPT-4: 13993 08/27/2013 METHYLPREDNISOLONE 40 MG INJ CPT-4: J1030 08/27/2013 TRIAMCINOLONE ACET INJ NOS CPT-4: J3301 08/27/2013 THER/PROPH/DIAG INJ SC/IM CPT-4: 08568 06/23/2013 METHYLPREDNISOLONE 40 MG INJ CPT-4: J1030 06/23/2013 TRIAMCINOLONE ACET INJ NOS CPT-4: J3301 06/23/2013 THER/PROPH/DIAG INJ SC/IM CPT-4: 69914 05/26/2013 METHYLPREDNISOLONE 40 MG INJ CPT-4: J1030 05/26/2013 TRIAMCINOLONE ACET INJ NOS CPT-4: J3301 05/26/2013 ROUTINE VENIPUNCTURE CPT-4: 50467 03/05/2013 ASSAY OF FREE THYROXINE CPT-4: 44969 03/05/2013 ASSAY THYROID STIM HORMONE CPT-4: 16410 03/05/2013 COMPREHEN METABOLIC PANEL CPT-4: 38299 03/05/2013 COMPLETE CBC W/AUTO DIFF WBC CPT-4: 46116 03/05/2013 A1C GLYCOSYLATED HEMOGLOBIN TEST CPT-4: 70746 013 DRAIN/INJECT JOINT/BURSA CPT-4: 67638 12/04/2012 METHYLPREDNISOLONE 40 MG INJ CPT-4: J1030 12/04/2012 TRIAMCINOLONE ACET INJ NOS CPT-4: J3301 12/04/2012 CEFTRIAXONE SODIUM INJECTION CPT-4: J0696 11/21/2012 THER/PROPH/DIAG INJ SC/IM CPT-4: 80860 11/21/2012 THER/PROPH/DIAG INJ SC/IM CPT-4: 84171 10/14/2012 METHYLPREDNISOLONE 40 MG INJ CPT-4: J1030 10/14/2012 TRIAMCINOLONE ACET INJ NOS CPT-4: J3301 10/14/2012 URINALYSIS NONAUTO W/O SCOPE CPT-4: 38746 09/27/2012 ROUTINE VENIPUNCTURE CPT-4: 07147 09/25/2012 ASSAY OF FREE THYROXINE CPT-4: 14556 09/25/2012 ASSAY THYROID STIM HORMONE CPT-4: 02855 09/25/2012 COMPREHEN METABOLIC PANEL CPT-4: 39133 09/25/2012 COMPLETE CBC W/AUTO DIFF WBC CPT-4: 59072 09/25/2012 C-REACTIVE PROTEIN CPT-4: 24351 09/25/2012 THER/PROPH/DIAG INJ SC/IM CPT-4: 69096 08/29/2012 METHYLPREDNISOLONE 40 MG INJ CPT-4: J1030 08/29/2012 TRIAMCINOLONE ACET INJ NOS CPT-4: J3301 08/29/2012 DESTRUCT PREMALG LESION (Cryosurgery) CPT-4: 73868 THER/PROPH/DIAG INJ SC/IM CPT-4: 96194 05/06/2012 METHYLPREDNISOLONE 40 MG INJ CPT-4: J1030 05/06/2012 TRIAMCINOLONE ACET INJ NOS CPT-4: J3301 05/06/2012 VITAMIN B 12 FOLIC ACID CPT-4: 98797|91268 05/06/2012 RBC SED RATE AUTOMATED CPT-4: 34565 05/06/2012 ROUTINE VENIPUNCTURE CPT-4: 56980 05/06/2012 ASSAY OF FREE THYROXINE CPT-4: 13316 05/06/2012 ASSAY THYROID STIM HORMONE CPT-4: 93765 05/06/2012 COMPREHEN METABOLIC PANEL CPT-4: 69210 05/06/2012 COMPLETE CBC W/AUTO DIFF WBC CPT-4: 97926 05/06/2012 ASSAY OF BLOOD/URIC ACID CPT-4: 11111 05/06/2012 THER/PROPH/DIAG INJ SC/IM CPT-4: 47630 03/19/2012 KETOROLAC TROMETHAMINE INJ CPT-4: J1885 03/19/2012 KETOROLAC TROMETHAMINE INJ CPT-4: J1885 01/30/2012 THER/PROPH/DIAG INJ SC/IM CPT-4: 54325 01/30/2012 PROMETHAZINE HCL INJECTION CPT-4: J2550 01/30/2012 THER/PROPH/DIAG INJ SC/IM CPT-4: 66586 01/24/2012 METHYLPREDNISOLONE 40 MG INJ CPT-4: J1030 01/24/2012 TRIAMCINOLONE ACET INJ NOS CPT-4: J3301 01/24/2012 THER/PROPH/DIAG INJ SC/IM CPT-4: 17092 09/13/2011 KETOROLAC TROMETHAMINE INJ CPT-4: J1885 09/13/2011 THER/PROPH/DIAG INJ SC/IM CPT-4: 28475 09/13/2011 PROMETHAZINE HCL INJECTION CPT-4: J2550 09/13/2011 CEFTRIAXONE SODIUM INJECTION CPT-4: J0696 07/20/2011 THER/PROPH/DIAG INJ SC/IM CPT-4: 73270 07/20/2011 THER/PROPH/DIAG INJ SC/IM CPT-4: 39334 07/20/2011 METHYLPREDNISOLONE INJECTION CPT-4: J2930 07/20/2011 URINALYSIS NONAUTO W/O SCOPE CPT-4: 70556 05/09/2011 CEFTRIAXONE SODIUM INJECTION CPT-4: J0696 05/09/2011 THER/PROPH/DIAG INJ SC/IM CPT-4: 39876 05/09/2011 THER/PROPH/DIAG INJ SC/IM CPT-4: 46961 05/09/2011 PROMETHAZINE HCL INJECTION CPT-4: J2550 05/09/2011 HYDRATION IV INFUSION INIT CPT-4: 68299 05/09/2011 DESTRUCT PREMALG LESION (Cryosurgery) CPT-4: 20371 DESTRUCT PREMALG LES 2-14 CPT-4: 38974 07/19/2010 REMOVAL OF SKIN TAGS <W/15 CPT-4: 91944 05/30/2010 THER/PROPH/DIAG INJ SC/IM CPT-4: 20822 04/05/2010 CEFTRIAXONE SODIUM INJECTION CPT-4: J0696 04/05/2010 TRIAMCINOLONE ACET INJ NOS CPT-4: J3301 04/05/2010 METHYLPREDNISOLONE 40 MG INJ CPT-4: J1030 04/05/2010 THER/PROPH/DIAG INJ SC/IM CPT-4: 88251 04/05/2010 TRIAMCINOLONE ACET INJ NOS CPT-4: J3301 03/09/2010 METHYLPREDNISOLONE 40 MG INJ CPT-4: J1030 03/09/2010 THER/PROPH/DIAG INJ SC/IM CPT-4: 82128 03/09/2010 THER/PROPH/DIAG INJ SC/IM CPT-4: 52895 03/09/2010 CEFTRIAXONE SODIUM INJECTION CPT-4: J0696 03/09/2010 [...] 1: 132/80 Code: 8480-6 BMI: 35.8 Code: 48598-4 Heart Rate 1: 88 bpm Height: 5'4" Respiratory Rate: 20 bpm SpO2: 95% Tempera ture: 36.9 (C) / 98.5 (F) Weight: 210 lbs 05/28/2019 Blood Pressure 1: 126/82 Code: 8480-6 BMI: 35.0 Code: 37380-5 Heart Rate 1: 88 bpm Height: 5'4" [...] 1: 128/90 Code: 8480-6 BMI: 37.2 Code: 26278-1 Heart Rate 1: 84 bpm Height: 5'4" Respiratory Rate: 20 bpm SpO2: 95% Tempera ture: 36.6 (C) / 97.8 (F) Weight: 217 lbs 08/27/2018 Blood Pressure 1: 128/88 Code: 8480-6 BMI: 38.3 Code: 54397-0 Heart Rate 1: 84 bpm Height: 5'4" [...] 1: 119/72 Code: 8480-6 BMI: 37.4 Code: 06630-9 Heart Rate 1: 82 bpm Height: 5'4" Respiratory Rate: 12 bpm SpO2: 94% Tempera ture: 35.2 (C) / 95.4 (F) Weight: 218 lbs 12/18/2017 Blood Pressure 1: 128/86 Code: 8480-6 BMI: 37.8 Code: 81296-8 Heart Rate 1: 84 bpm Height: 5'4" [...] 1: 128/82 Code: 8480-6 BMI: 35.5 Code: 44965-5 Heart Rate 1: 84 bpm Height: 5'4" [...] 1: 128/82 Code: 8480-6 BMI: 30.2 Code: 22634-0 Heart Rate 1: 80 bpm Height: 5'4" [...] 1: 128/86 Code: 8480-6 BMI: 32.8 Code: 93552-8 Heart Rate 1: 66 bpm Height: 5'4" Respiratory Rate: 18 bpm Temperature: 36 .3 (C) / 97.3 (F) Weight: 191 lbs 06/23/2013 Blood Pressure 1: 132/94 Code: 8480-6 BMI: 34.0 Code: 17187-8 Heart Rate 1: 84 bpm Height: 5'4" Respiratory Rate: 20 bpm Temperature: 36 .8 (C) / 98.2 (F) Weight: 198 lbs 05/26/2013 Blood Pressure 1: 114/80 Code: 8480-6 BMI: 35.0 Code: 72986-0 Heart Rate 1: 80 bpm Height: 5'4" Respiratory Rate: 20 bpm Temperature: 36 .4 (C) / 97.6 (F) Weight: 204 lbs 04/16/2013 Blood Pressure 1: 114/82 Code: 8480-6 BMI: 36.7 Code: 08757-8 Heart Rate 1: 84 bpm Height: 5'4" Respiratory Rate: 20 bpm Temperature: 36 .7 (C) / 98.0 (F) Weight: 214 lbs 03/05/2013 Blood Pressure 1: 136/90 Code: 8480-6 BMI: 37.1 Code: 34569-2 Heart Rate 1: 84 bpm Height: 5'4" [...] 1: 168/114 Code: 8480-6 BMI: 36.2 Code: 91247-5 Heart Rate 1: 104 bpm Height: 5'4" Respiratory Rate: 20 bpm Temperature: 36 .8 (C) / 98.2 (F) Weight: 211 lbs 11/22/2012 Blood Pressure 1: 128/90 Code: 8480-6 Heart Rate 1: 88 bpm Respiratory Rate: 20 bpm SpO2: 96% Temperature: 36.8 (C) / 98.2 (F) 11/21/2012 Blood Pressure 1: 146/100 Code: 8480-6 BMI: 35.7 Code: 11222-5 Heart Rate 1: 96 bpm Height: 5'4" [...] 1: 138/100 Code: 8480-6 BMI: 35.7 Code: 16907-6 Heart Rate 1: 96 bpm Height: 5'4" Respiratory Rate: 20 bpm Temperature: 36 .8 (C) / 98.2 (F) Weight: 208 lbs 05/06/2012 Blood Pressure 1: 154/102 Code: 8480-6 BMI: 34.7 Code: 94738-6 Heart Rate 1: 116 bpm Height: 5'4" Respiratory Rate: 20 bpm Temperature: 36 .8 (C) / 98.2 (F) Weight: 202 lbs 04/03/2012 Blood Pressure 1: 134/94 Code: 8480-6 BMI: 34.8 Code: 34763-8 Heart Rate 1: 108 bpm Height: 5'4" Respiratory Rate: 20 bpm Temperature: 36 .8 (C) / 98.2 (F) Weight: 203 lbs 03/19/2012 Blood Pressure 1: 148/106 Code: 8480-6 BMI: 35.0 Code: 39644-1 Heart Rate 1: 100 bpm Height: 5'4" Respiratory Rate: 20 bpm Temperature: 36 .6 (C) / 97.9 (F) Weight: 204 lbs 02/22/2012 Blood Pressure 1: 146/94 Code: 8480-6 He art Rate 1: 88 bpm 02/21/2012 Blood Pressure 1: 172/120 Code: 8480-6 B lood Pressure 2: 152/106 Code: 8480-6 Heart Rate 1: 116 bpm 02/20/2012 Blood Pressure 1: 160/100 Code: 8480-6 BMI: 32.0 Code: 52266-6 Heart Rate 1: 84 bpm Height: 5'7" Temperature: 36.5 (C) / 97.7 (F) Weight: 204 lbs 01/30/2012 Blood Pressure 1: 152/110 Code: 8480-6 BMI: 32.0 Code: 92547-6 Heart Rate 1: 116 bpm Height: 5'7" Respiratory Rate: 20 bpm Temperature: 37 .0 (C) / 98.6 (F) Weight: 204 lbs 01/24/2012 Blood Pressure 1: 146/100 Code: 8480-6 BMI: 32.0 Code: 85290-4 Heart Rate 1: 100 bpm Height: 5'7" Respiratory Rate: 20 bpm Temperature: 36 .7 (C) / 98.0 (F) Weight: 204 lbs 01/10/2012 Blood Pressure 1: 156/94 Code: 8480-6 BMI: 32.6 Code: 35258-0 Heart Rate 1: 72 bpm Height: 5'7" Respiratory Rate: 20 bpm Temperature: 36 .8 (C) / 98.2 (F) Weight: 208 lbs 12/11/2011 Blood Pressure 1: 146/100 Code: 8480-6 Heart Rat e 1: 116 bpm Height: 5'7" Respiratory Rate: 20 bpm Temperature: 36.9 (C) / 98.4 (F) We ight: 11/09/2011 Blood Pressure 1: 148/96 Code: 8480-6 BMI: 32.1 Code: 06775-1 Heart Rate 1: 116 bpm Height: 5'7" Respiratory Rate: 20 bpm Temperature: 36 .7 (C) / 98.0 (F) Weight: 205 lbs 09/13/2011 Blood Pressure 1: 126/88 Code: 8480-6 Heart Rate 1: 88 bpm Height: 5'7" Respiratory Rate: 20 bpm Temperature: 36.9 (C) / 98.4 (F) We ight: 08/31/2011 Blood Pressure 1: 118/82 Code: 8480-6 BMI: 32.0 Code: 67800-4 Heart Rate 1: 80 bpm Height: 5'7" Temperature: 36.4 (C) / 97.6 (F) Weight: 204 lbs 07/06/2011 Blood Pressure 1: 128/86 Code: 8480-6 BMI: 30.9 Code: 65091-4 Heart Rate 1: 92 bpm Height: 5'7" Respiratory Rate: 20 bpm Temperature: 36 .9 (C) / 98.4 (F) Weight: 197 lbs 06/06/2011 Blood Pressure 1: 112/74 Code: 8480-6 BMI: 31.0 Code: 38917-5 Heart Rate 1: 72 bpm Height: 5'7" [...] 1: 128/92 Code: 8480-6 BMI: 33.6 Code: 30079-6 Heart Rate 1: 104 bpm Height: 5'4" [...] 02/09/2016 insomnia 01/24/2016 cough 12/23/2015 patient is requestin g rocephin and steroid injection chest congestion 12/08/2015 [...] Check-up Encounters Encounter Performer Location Codes Date ([id number]) OFFICE/OUTPATIENT VISIT EST Diagnosis: Blister (nonthermal), right foot, initial encounter[ICD10: S90.821A] Diagnosis: Type 2 diabetes mellitus with hyperglycemia[ICD10: E11.65] Diagnosis: Lower extremity edema[ICD10: R60.0] Kathleen APPIAH [facility] CPT-4: 02349 02/12/2020 ([id number]) OFFICE/OUTPATIENT VISIT EST Diagnosis: Essential (primary) hypertension[ICD10: I10] Diagnosis: Type 2 diabetes mellitus with hyperglycemia[ICD10: E11.65] Diagnosis: Allergic rhinitis[ICD10: J30.9] María Elena Appiah MARÍA ELENA Fabiola APPIAH [facility] CPT-4: 85420 01/13/2020 ([id number]) OFFICE/OUTPATIENT VISIT EST Diagnosis: Type 2 diabetes mellitus with hyperglycemia[ICD10: E11.65] María Elena JUARES LucioJj TD [facility] CPT-4: 66181 11/20/2019 ([id number]) OFFICE/OUTPATIENT VISIT EST Diagnosis: Ingrowing nail[ICD10: L60.0] Diagnosis: Type 2 diabetes mellitus with hyperglycemia[ICD10: E11.65] Kathleen ELLISLINE Fabiola APPIAH [facility] CPT-4: 48138 10/07/2019 ([id number]) OFFICE/OUTPATIENT VISIT EST Diagnosis: DM w/o complication type II, uncontrolled[ICD10: E11.65] Diagnosis: Hypertriglyceridemia[ICD10: E78.1] Diagnosis: Essential hypertension[ICD10: I10] María Elena JEAN Fabiola APPIAH [facility] CPT-4: 62359 09/30/2019 ([id number]) NURSE/OUTPATIENT VISIT EST Diagnosis: Essential (primary) hypertension[ICD10: I10] Diagnosis: Cervicalgia[ICD10: M54.2] Diagnosis: Hyperglycemia, unspecified[ICD10: R73.9] Diagnosis: Mixed hyperlipidemia[ICD10: E78.2] María Elena JEAN Fabiola APPIAH [facility] CPT-4: 78111 09/29/2019 ([id number]) OFFICE/OUTPATIENT VISIT EST Diagnosis: Essential (primary) hypertension[ICD10: I10] Diagnosis: Fall from bed, sequela[ICD10: W06.XXXS] María Elena REED LucioJj [facility] CPT-4: 35518 05/28/2019 ([id number]) NURSE/OUTPATIENT VISIT EST Diagnosis: Essential (primary) hypertension[ICD10: I10] María Elena JUARES Fabiola APPIAH [facility] CPT-4: 46528 05/19/2019 ([id number]) OFFICE/OUTPATIENT VISIT EST Diagnosis: Essential (primary) hypertension[ICD10: I10] Diagnosis: Type 2 diabetes mellitus with hyperglycemia[ICD10: E11.65] Diagnosis: Intervertebral disc disorders with radiculopathy, 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] Diagnosis: Hormone replacement therapy[ICD10: Z79.890] María Elena Appiah MARÍA ELENA Fabiola APPIAH DO [facility] CPT-4: 74081 01/22/2019 ([id number]) OFFICE/OUTPATIENT VISIT EST Diagnosis: Essential (primary) hypertension[ICD10: I10] Diagnosis: Type 2 diabetes mellitus with hyperglycemia[ICD10: E11.65] María Elena Seamusmindivictorino ELLISMARÍA ELENA LucioJj TD [facility] CPT-4: 99613 09/30/2018 ([id number]) OFFICE/OUTPATIENT VISIT EST Diagnosis: Pain in left elbow[ICD10: M25.522] Diagnosis: Acute stress reaction[ICD10: F43.0] Diagnosis: Primary insomnia[ICD10: F51.01] Diagnosis: Abnormal weight gain[ICD10: R63.5] María Elena Seamusmindivictorino SHERINE JEAN Fabiola APPIAH [facility] CPT-4: 82129 08/27/2018 ([id number]) OFFICE/OUTPATIENT VISIT EST Diagnosis: Acute recurrent sinusitis, unspecified[ICD10: J01.91] Diagnosis: Follicular disorder, unspecified[ICD10: L73.9] Diagnosis: Tinea corporis[ICD10: B35.4] María Elena Seamusabbey MONTEROMARÍA ELENA LucioJj TD [facility] CPT-4: 68760 08/09/2018 ([id number]) OFFICE/OUTPATIENT VISIT EST Diagnosis: Tinea corporis[ICD10: B35.4] Diagnosis: Anxiety disorder, unspecified[ICD10: F41.9] Diagnosis: Menopausal and female climacteric states[ICD10: N95.1] María Elena MONTEROQUELINE LucioJj TD [facility] CPT-4: 61248 07/22/2018 ([id number]) NURSE/OUTPATIENT VISIT EST Diagnosis: Cellulitis of right toe[ICD10: L03.031] María Elena Oreabbey APPIAH [facility] CPT-4: 73713 06/19/2018 ([id number]) OFFICE/OUTPATIENT VISIT EST Diagnosis: Cellulitis of right toe[ICD10: L03.031] Kathleen APPIAH [facility] CPT-4: 17380 06/17/2018 ([id number]) OFFICE/OUTPATIENT VISIT EST Diagnosis: Migraine without aura, intractable, without status migrainosus[ICD10: G43.019] Diagnosis: Zoster without complications[ICD10: B02.9] Kathleen APPIA[facility] CPT-4: 87994 05/16/2018 ([id number]) OFFICE/OUTPATIENT VISIT EST Diagnosis: Cellulitis of right lower limb[ICD10: L03.115] Kathleen APPIA[facility] CPT-4: 42743 03/20/2018 ([id number]) OFFICE/OUTPATIENT VISIT EST Diagnosis: Cellulitis of right lower limb[ICD10: L03.115] Kathleen APPIAH [facility] CPT-4: 81080 03/18/2018 ([id number]) OFFICE/OUTPATIENT VISIT EST Diagnosis: Cellulitis of right lower limb[ICD10: L03.115] Kathleen APPIA[facility] CPT-4: 31740 03/15/2018 ([id number]) OFFICE/OUTPATIENT VISIT EST Diagnosis: Acute sinusitis, unspecified[ICD10: J01.90] Kathleen [facility] CPT-4: 90706 02/11/2018 ([id number]) NURSE/OUTPATIENT VISIT EST Diagnosis: Otitis media, unspecified, right ear[ICD10: H66.91] María Elena [facility] CPT-4: 79133 02/01/2018 ([id number]) OFFICE/OUTPATIENT VISIT EST Diagnosis: Acute suppurative otitis media without spontaneous rupture of ear drum, left ear[ICD10: H66.002] Diagnosis: Abnormal weight gain[ICD10: R63.5] Diagnosis: Intervertebral disc disorders with radiculopathy, 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] Kathleen APPIA[facility] CPT-4: 99 214 01/30/2018 ([id number]) PREV VISIT EST AGE 40-64 Diagnosis: Encounter for general adult medical examination without abnormal findings[ICD10: Z00.00] Diagnosis: Essential (primary) hypertension[ICD10: I10] Diagnosis: Mixed hyperlipidemia[ICD10: E78.2] Diagnosis: Type 2 diabetes mellitus with hyperglycemia[ICD10: E11.65] Diagnosis: 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] María Elena APPIAH [facility] CPT-4: 13705 12/18/2017 ([id number]) OFFICE/OUTPATIENT VISIT EST Diagnosis: Cellulitis of right toe[ICD10: L03.031] Diagnosis: Mixed hyperlipidemia[ICD10: E78.2] Diagnosis: Essential (primary) hypertension[ICD10: I10] Diagnosis: Hyperglycemia, unspecified[ICD10: R73.9] Diagnosis: Nontoxic goiter, 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] María Elena APPIAH [facility] CPT-4: 84623 12/10/2017 ([id number]) OFFICE/OUTPATIENT VISIT EST Diagnosis: Cellulitis of right toe[ICD10: L03.031] Diagnosis: Acute sinusitis, unspecified[ICD10: J01.90] Kathleen APPIA[facility] CPT-4: 19862 12/07/2017 OFFICE/OUTPATIENT VISIT EST Diagnosis: Acute maxillary sinusitis, unspecified[ICD10: J01.00] Kathleen APPIA[facility] CPT-4: 33899 10/08/2017 ([id number]) OFFICE/OUTPATIENT VISIT EST Diagnosis: Cellulitis of left toe[ICD10: L03.032] [facility]: 80573 09/21/2017 ([id number]) OFFICE/OUTPATIENT VISIT EST Diagnosis: Insomnia, unspecified[ICD10: G47.00] Diagnosis: Major depressive disorder, single episode, unspecified[ICD10: F32.9] Diagnosis: Anxiety disorder, unspecified[ICD10: F41.9] Diagnosis: Cellulitis of left toe[ICD10: L03.032] Diagnosis: Snoring[ICD10: R06.83] Kathleen APPIAH DO [facility] CPT-4: 76400 09/20/2017 ([id number]) OFFICE/OUTPATIENT VISIT EST Diagnosis: Cellulitis of left toe[ICD10: L03.032] María Elena APPIAH [facility] CPT-4: 43370 07/19/2017 OFFICE/OUTPATIENT VISIT EST Diagnosis: Chronic sinusitis, unspecified[ICD10: J32.9] Diagnosis: Generalized hyperhidrosis[ICD10: R61] Kathleen APPIAH DO [facility] CPT-4: 26713 06/27/2017 ([id number]) OFFICE/OUTPATIENT VISIT EST Diagnosis: Intervertebral disc disorders with radiculopathy, 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] Diagnosis: Primary insomnia[ICD10: F51.01] Diagnosis: Other fatigue[ICD10: R53.83] María Elena APPIAH DO [facility] CPT-4: 70367 04/10/2017 ([id number]) OFFICE/OUTPATIENT VISIT EST Diagnosis: Primary insomnia[ICD10: F51.01] Diagnosis: Localized edema[ICD10: R60.0] Diagnosis: 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] María Elena APPIAH DO [facility] CPT-4: 01052 12/13/2016 ([id number]) OFFICE/OUTPATIENT VISIT EST Diagnosis: Primary insomnia[ICD10: F51.01] Diagnosis: Cyanosis[ICD10: R23.0] María Elena Bazzi [facility] CPT-4: 63673 11/01/2016 ([id number]) PREV VISIT EST AGE 40-64 Diagnosis: Encounter for gynecological examination (general) (routine) without abnormal findings[ICD10: Z01.419] Diagnosis: Encounter for routine child health examination without abnormal findings[ICD10: Z00.129] María Elena APPIAH DO [facility] CPT-4: 47638 10/17/2016 ([id number]) OFFICE/OUTPATIENT VISIT EST Diagnosis: Other seasonal allergic rhinitis[ICD10: J30.2] María Elena APPIAH DO [facility] CPT-4: 16884 10/10/2016 ([id number]) OFFICE/OUTPATIENT VISIT EST Diagnosis: Pain in left arm[ICD10: M79.602] Diagnosis: Contact with and (suspected) exposure to potentially hazardous body fluids[ICD10: Z77.21] Diagnosis: 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, 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] Diagnosis: Unspecified open wound, right foot, sequela[ICD10: S91.301S] María Elena APPIAH [facility] CPT-4: 15179 09/19/2016 ([id number]) OFFICE/OUTPATIENT VISIT EST Diagnosis: Chronic sinusitis, unspecified[ICD10: J32.9] Diagnosis: Allergic rhinitis due to pollen[ICD10: J30.1] María Elena APPIAH [facility] CPT-4: 78581 08/24/2016 ([id number]) OFFICE/OUTPATIENT VISIT EST Diagnosis: Acute bronchitis, unspecified[ICD10: J20.9] María Elena APPIAH [facility] CPT-4: 89432 08/16/2016 ([id number]) OFFICE/OUTPATIENT VISIT EST Diagnosis: Otitis media, unspecified, right ear[ICD10: H66.91] Diagnosis: Acute bronchitis, unspecified[ICD10: J20.9] María Elena APPIAH [facility] CPT-4: 93012 08/10/2016 ([id number]) OFFICE/OUTPATIENT VISIT EST Diagnosis: Acute recurrent sinusitis, unspecified[ICD10: J01.91] Diagnosis: Allergic rhinitis due to pollen[ICD10: J30.1] María Elena APPIAH [facility] CPT-4: 71470 08/02/2016 ([id number]) OFFICE/OUTPATIENT VISIT EST Diagnosis: Pain in unspecified joint[ICD10: M25.50] María Elena APPIAH DO [facility] CPT-4: 98139 07/27/2016 OFFICE/OUTPATIENT VISIT EST Diagnosis: 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] Diagnosis: Acute recurrent sinusitis, unspecified[ICD10: J01.91] Diagnosis: Other fatigue[ICD10: R53.83] Diagnosis: Primary insomnia[ICD10: F51.01] Diagnosis: Pain in unspecified joint[ICD10: M25.50] María Elena APPIAH [facility] CPT-4: 47851 07/20/2016 ([id number]) OFFICE/OUTPATIENT VISIT EST Diagnosis: Blister (nonthermal), left great toe, initial encounter[ICD10: S90.422A] Loan ELLISLINE Fabiola APPIAH [facility] CPT-4: 16878 ([id number]) OFFICE/OUTPATIENT VISIT EST Diagnosis: Acute recurrent sinusitis, unspecified[ICD10: J01.91] María Elena APPIAH [facility] CPT-4: 70111 05/25/2016 ([id number]) OFFICE/OUTPATIENT VISIT EST Diagnosis: Acute sinusitis, unspecified[ICD10: J01.90] María Elena APPIAH [facility] CPT-4: 47663 04/26/2016 ([id number]) OFFICE/OUTPATIENT VISIT EST Diagnosis: Flushing[ICD10: R23.2] Diagnosis: Primary insomnia[ICD10: F51.01] María Elena APPIAH [facility] CPT-4: 12519 03/02/2016 ([id number]) OFFICE/OUTPATIENT VISIT EST Diagnosis: Other seasonal allergic rhinitis[ICD10: J30.2] Loan ELLISLINE Fabiola APPIAH [facility] CPT-4: 45544 02/09/2016 ([id number]) OFFICE/OUTPATIENT VISIT EST Diagnosis: Primary insomnia[ICD10: F51.01] Diagnosis: Urinary tract infection, site not specified[ICD10: N39.0] María Elenamarcella APPIAH [facility] CPT-4: 57505 01/24/2016 ([id number]) OFFICE/OUTPATIENT VISIT EST Diagnosis: Other specified disorders of Eustachian tube, bilateral[ICD10: H69.83] Diagnosis: Allergic rhinitis, unspecified[ICD10: J30.9] Loan APPIAH DO [facility] CPT-4: 58934 12/23/2015 ([id number]) OFFICE/OUTPATIENT VISIT EST Diagnosis: Acute recurrent sinusitis, unspecified[ICD10: J01.91] Diagnosis: 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] Diagnosis: Allergic rhinitis, unspecified[ICD10: J30.9] María Elena ELLISLINE Fabiola APPIAH [facility] CPT-4: 97766 12/08/2015 ([id number]) OFFICE/OUTPATIENT VISIT EST Diagnosis: Allergic rhinitis, unspecified[ICD10: J30.9] Diagnosis: Pain in unspecified joint[ICD10: M25.50] María Elena APPIAH DO [facility] CPT-4: 02219 10/07/2015 ([id number]) OFFICE/OUTPATIENT VISIT EST Diagnosis: Essential (primary) hypertension[ICD10: I10] María Elena ELLISLINE Fabiola APPIAH [facility] CPT-4: 26500 10/06/2015 OFFICE/OUTPATIENT VISIT EST Diagnosis: Localized enlarged lymph nodes[ICD10: R59.0] Diagnosis: Local infection of the skin and subcutaneous tissue, unspecified[ICD10: L08.9] June Sandra MARÍA ELENA APPIAH [facility] CPT- 4: 33619 09/14/2015 ([id number]) OFFICE/OUTPATIENT VISIT EST Diagnosis: Essential (primary) hypertension[ICD10: I10] Diagnosis: Actinic keratosis[ICD10: L57.0] María Elena APPIAH DO [facility] CPT-4: 30846 09/07/2015 ([id number]) OFFICE/OUTPATIENT VISIT EST Diagnosis: Essential (primary) hypertension[ICD10: I10] Diagnosis: Acute stress reaction[ICD10: F43.0] María Elena Seamusabbey COLON Fabiola APPIAH [facility] CPT-4: 57603 08/18/2015 ([id number]) OFFICE/OUTPATIENT VISIT EST Diagnosis: Essential (primary) hypertension[ICD10: I10] María Elena APPIAH DO [facility] CPT-4: 07345 07/07/2015 ([id number]) OFFICE/OUTPATIENT VISIT EST Diagnosis: Essential (primary) hypertension[ICD10: I10] María Elena APPIAH DO [facility] CPT-4: 09585 06/24/2015 ([id number]) OFFICE/OUTPATIENT VISIT EST Diagnosis: Essential (primary) hypertension[ICD10: I10] María Elena APPIAH DO [facility] CPT-4: 70778 06/21/2015 ([id number]) OFFICE/OUTPATIENT VISIT EST Diagnosis: Essential (primary) hypertension[ICD10: I10] Diagnosis: Mixed hyperlipidemia[ICD10: E78.2] Diagnosis: Acute stress reaction[ICD10: F43.0] Diagnosis: Primary insomnia[ICD10: F51.01] María Elena APPIAH DO [facility] CPT-4: 47451 06/16/2015 ([id number]) OFFICE/OUTPATIENT VISIT EST Diagnosis: INSOMNIA NOS[ICD9: 780.52] Diagnosis: HYPERTENSION[ICD9: 401.9] Diagnosis: Stress reaction[ICD9: 308.9] María Elena APPIAH DO [facility] CPT-4: 77358 06/02/2015 ([id number]) OFFICE/OUTPATIENT VISIT EST Diagnosis: HYPERTENSION[ICD9: 401.9] Diagnosis: Stress reaction[ICD9: 308.9] María Elena APPIAH DO [facility] CPT-4: 14800 05/20/2015 ([id number]) OFFICE/OUTPATIENT VISIT EST Diagnosis: Skin lesion[ICD9: 709.9] 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] María Elena APPIAH DO [facility] CPT-4: 76983 05/10/2015 ([id number]) OFFICE/OUTPATIENT VISIT EST Diagnosis: SINUSITIS, ACUTE[ICD9: 461.9] Diagnosis: ALLERGIC RHINITIS[ICD9: 477.9] Diagnosis: DERMATITIS NOS[ICD9: 692.9] María Elena REHMAN [facility] CPT-4: 69847 03/16/2015 OFFICE/OUTPATIENT VISIT EST Diagnosis: Otitis media[ICD9: 382.9] Diagnosis: SINUSITIS, ACUTE[ICD9: 461.9] June APPIAH DO [facility] CPT-4: 11446 09/11/2014 ([id number]) OFFICE/OUTPATIENT VISIT EST Diagnosis: HYPERLIPIDEMIA NEC/NOS[ICD9: 272.4] María Elena APPIAH DO [facility] CPT-4: 53342 08/31/2014 ([id number]) OFFICE/OUTPATIENT VISIT EST Diagnosis: - I - HYPERTENSION[ICD9: 401.9] Diagnosis: HYPERLIPIDEMIA NEC/NOS[ICD9: 272.4] María Elena APPIAH DO [facility] CPT-4: 61009 08/27/2014 ([id number]) OFFICE/OUTPATIENT VISIT EST Diagnosis: ABDOMINAL PAIN[ICD9: 789.00] Diagnosis: DYSPEPSIA[ICD9: 536.8] Diagnosis: Thoracic back pain[ICD9: 724.1] María Elena APPIAH [facility] CPT-4: 54377 07/21/2014 ([id number]) OFFICE/OUTPATIENT VISIT EST Diagnosis: ALLERGIC RHINITIS[ICD9: 477.9] María Elena APPIAH DO [facility] CPT-4: 87417 07/15/2014 ([id number]) OFFICE/OUTPATIENT VISIT EST Diagnosis: EDEMA[ICD9: 782.3] Diagnosis: Chronic insomnia[ICD9: 780.52] María Elena APPIAH DO [facility] CPT-4: 35146 05/18/2014 ([id number]) OFFICE/OUTPATIENT VISIT EST Diagnosis: Thyromegaly[ICD9: 240.9] Diagnosis: - I - HYPERTENSION[ICD9: 401.9] Diagnosis: ROUTINE MEDICAL EXAM[ICD9: V70.0] Diagnosis: EDEMA[ICD9: 782.3] María Elena APPIAH DO [facility] CPT-4: 00289 05/14/2014 OFFICE/OUTPATIENT VISIT EST Diagnosis: BRONCHITIS, ACUTE[ICD9: 466.0] Diagnosis: SINUSITIS, ACUTE[ICD9: 461.9] María Elena APPIAH DO [facility] CPT-4: 58210 04/21/2014 OFFICE/OUTPATIENT VISIT EST Diagnosis: SINUSITIS, ACUTE[ICD9: 461.9] June APPIAH DO [facility] CPT-4: 46108 03/04/2014 ([id number]) OFFICE/OUTPATIENT VISIT EST Diagnosis: VACCINE FOR TDAP[ICD10: Z23] María Elena APPIAH DO [facility] CPT-4: 00058 02/27/2014 ([id number]) OFFICE/OUTPATIENT VISIT EST Diagnosis: Seborrheic keratoses, inflamed[ICD9: 702.11] Diagnosis: ACTINIC KERATOSIS[ICD9: 702.0] Diagnosis: INSOMNIA NOS[ICD9: 780.52] [facility]: 83039 01/13/2014 OFFICE/OUTPATIENT VISIT EST 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] Diagnosis: ALLERGIC RHINITIS[ICD9: 477.9] Diagnosis: Serous otitis media[ICD9: 381.4] María Elena APPIAH [facility] CPT-4: 11383 12/24/2013 ([id number]) OFFICE/OUTPATIENT VISIT EST Diagnosis: SINUSITIS, ACUTE[ICD9: 461.9] Diagnosis: ALLERGIC RHINITIS[ICD9: 477.9] 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] María Elena APPIAH [facility] CPT-4: 17017 11/12/2013 ([id number]) OFFICE/OUTPATIENT VISIT EST Diagnosis: ALLERGIC RHINITIS[ICD9: 477.9] Diagnosis: SINUSITIS, ACUTE[ICD9: 461.9] María Elena APPIAH [facility] CPT-4: 65796 10/21/2013 ([id number]) OFFICE/OUTPATIENT VISIT EST Diagnosis: ASYMPTOMATIC VARICOSE VEINS[ICD9: 454.9] Diagnosis: INSOMNIA NOS[ICD9: 780.52] María [facility] CPT-[facility]: 75646 09/22/2013 OFFICE/OUTPATIENT VISIT EST Diagnosis: SINUSITIS, ACUTE[ICD9: 461.9] June APPIAH DO [facility] CPT-4: 15749 08/27/2013 ([id number]) OFFICE/OUTPATIENT VISIT EST Diagnosis: CEPHALGIA[ICD9: 784.0] Diagnosis: CEPHALGIA, TENSION[ICD9: 307.81] 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] María Elena APPIAH [facility] CPT-4: 62073 08/04/2013 ([id number]) OFFICE/OUTPATIENT VISIT EST Diagnosis: Cervicalgia[ICD9: 723.1] Diagnosis: SPASM OF MUSCLE[ICD9: 728.85] Diagnosis: CEPHALGIA, TENSION[ICD9: 307.81] María Elena APPIAH [facility] CPT-4: 67137 07/23/2013 ([id number]) OFFICE/OUTPATIENT VISIT EST 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] Diagnosis: ALLERGIC RHINITIS[ICD9: 477.9] María Elena APPIAH [facility] CPT-4: 78519 06/23/2013 ([id number]) OFFICE/OUTPATIENT VISIT EST Diagnosis: ALLERGIC RHINITIS[ICD9: 477.9] Diagnosis: ACUTE SEROUS OTITIS MEDIA[ICD9: 381.01] 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] María Elena APPIAH [facility] CPT-4: 65120 05/26/2013 ([id number]) OFFICE/OUTPATIENT VISIT EST Diagnosis: HYPERTENSION[ICD9: 401.9] Diagnosis: EDEMA[ICD9: 782.3] Diagnosis: Serous otitis media[ICD9: 381.4] María Elena APPIAH [facility] CPT-4: 13669 04/16/2013 ([id number]) OFFICE/OUTPATIENT VISIT EST Diagnosis: SINUSITIS, ACUTE[ICD9: 461.9] Diagnosis: ALLERGIC RHINITIS[ICD9: 477.9] Diagnosis: EDEMA[ICD9: 782.3] Diagnosis: Thyromegaly[ICD9: 240.9] Diagnosis: MALAISE AND FATIGUE[ICD9: 780.79] María Elena Lopez Fabiola APPIAH DO [facility] CPT-4: 09214 03/05/2013 ([id number]) OFFICE/OUTPATIENT VISIT EST Diagnosis: PAIN, LOWER BACK[ICD9: 724.2] Diagnosis: SPASM OF MUSCLE[ICD9: 728.85] María Elena JUARES LucioJj TD [facility] CPT-4: 47078 12/23/2012 OFFICE/OUTPATIENT VISIT EST Diagnosis: Low back pain[ICD9: 724.2] Lashawn Hicks KRISTYN [facility] CPT-4: 63665 12/16/2012 ([id number]) OFFICE/OUTPATIENT VISIT EST Diagnosis: PAIN, LOWER BACK[ICD9: 724.2] Diagnosis: SCIATICA[ICD9: 724.3] Diagnosis: Lumbar herniated disc[ICD9: 722.10] María Elena COLON Fabiola APPIAH [facility] CPT-4: 43662 12/09/2012 ([id number]) OFFICE/OUTPATIENT VISIT EST Diagnosis: PAIN, LOWER BACK[ICD9: 724.2] Diagnosis: SCIATICA[ICD9: 724.3] Diagnosis: LUMBAR DISC DISPLACEMENT[ICD9: 722.10] María Elena MARIN Fabiola APPIAH [facility] CPT-4: 80998 12/04/2012 OFFICE/OUTPATIENT VISIT EST Diagnosis: Pneumonia[ICD9: 486] Mary JUARES LucioJj TD [facility] CPT-4: 89806 11/22/2012 ([id number]) OFFICE/OUTPATIENT VISIT EST Diagnosis: PNEUMONIA, ORGANISM[ICD9: 486] Diagnosis: Exacerbation of RAD (reactive airway disease)[ICD9: 493.92] María Elena JUARES LucioJj TD [facility] CPT-4: 72687 11/21/2012 OFFICE/OUTPATIENT VISIT EST Diagnosis: HYPERTENSION[ICD9: 401.9] Diagnosis: Cephalgia[ICD9: 784.0] Lashawn Hicks [facility] CPT-4: 98461 10/29/2012 ([id number]) OFFICE/OUTPATIENT VISIT EST Diagnosis: MALAISE AND FATIGUE[ICD9: 780.79] Diagnosis: ARTHRALGIA-MULTIPLE SITES[ICD9: 719.49] María Elena APPIAH DO [facility] CPT-4: 26045 10/14/2012 ([id number]) OFFICE/OUTPATIENT VISIT EST Diagnosis: URINARY FREQUENCY[ICD9: 788.41] María Elena APPIAH DO [facility] CPT-4: 00613 09/27/2012 ([id number]) OFFICE/OUTPATIENT VISIT EST Diagnosis: MALAISE AND FATIGUE[ICD9: 780.79] Diagnosis: ARTHRALGIA-MULTIPLE SITES[ICD9: 719.49] María Elena APPIAH DO [facility] CPT-4: 34709 09/25/2012 ([id number]) OFFICE/OUTPATIENT VISIT EST Diagnosis: SINUSITIS, ACUTE[ICD9: 461.9] 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] María Elena APPIAH DO [facility] CPT-4: 19927 08/29/2012 OFFICE/OUTPATIENT VISIT EST Diagnosis: ACTINIC KERATOSIS[ICD9: 702.0] Diagnosis: Inflamed seborrheic keratosis[ICD9: 702.11] Diagnosis: Skin cancer of face[ICD9: 173.31] Diagnosis: HYPERTENSION[ICD9: 401.9] María Elena SEYMOUR [facility] CPT-4: 00158 08/12/2012 ([id number]) OFFICE/OUTPATIENT VISIT EST Diagnosis: ARTHRALGIA-MULTIPLE SITES[ICD9: 719.49] Diagnosis: GOUT[ICD9: 274.9] Diagnosis: HYPERTENSION[ICD9: 401.9] Diagnosis: Tachycardia[ICD9: 785.0] María Elena REDDY [facility] CPT-4: 69430 05/06/2012 ([id number]) OFFICE/OUTPATIENT VISIT EST Diagnosis: INSOMNIA NOS[ICD9: 780.52] María Elena PANDYA [facility] CPT-4: 97069 04/03/2012 ([id number]) OFFICE/OUTPATIENT VISIT EST Diagnosis: INSOMNIA NOS[ICD9: 780.52] Diagnosis: HYPERTENSION[ICD9: 401.9] Diagnosis: MIGRAINE NOS/NOT INTRCBL[ICD9: 346.90] María Elena Seamusmindivictorino MARLIN TANIA APPIAH [facility] CPT-4: 72402 03/19/2012 ([id number]) OFFICE/OUTPATIENT VISIT EST Diagnosis: CELLULITIS[ICD9: 682.9] Diagnosis: Ankle pain[ICD9: 719.47] Diagnosis: HYPERTENSION[ICD9: 401.9] María Elena Waymindivictorino MARÍA ELENA LucioJj SEAMUS [facility] CPT-4: 99960 02/20/2012 ([id number]) OFFICE/OUTPATIENT VISIT EST Diagnosis: MIGRAINE NOS/NOT INTRCBL[ICD9: 346.90] Diagnosis: Vomiting[ICD9: 787.03] María Elena Seamusabbey JUARES LucioJj CIRO Bazzi [facility] CPT-4: 45650 01/30/2012 ([id number]) OFFICE/OUTPATIENT VISIT EST Diagnosis: EDEMA[ICD9: 782.3] Diagnosis: HYPERTENSION[ICD9: 401.9] Diagnosis: ALLERGIC RHINITIS[ICD9: 477.9] Diagnosis: ARTHRALGIA-MULTIPLE SITES[ICD9: 719.49] María Elena Seamusabbey KYLAH BRAUNALCIDES LucioJj TD [facility] CPT-4: 83166 01/24/2012 ([id number]) OFFICE/OUTPATIENT VISIT EST Diagnosis: SPASM OF MUSCLE[ICD9: 728.85] Diagnosis: Thoracic back pain[ICD9: 724.1] Diagnosis: Cervical pain[ICD9: 723.1] María Elena Hicks KRISTYN MUMTAZ [facility] CPT-4: 13390 01/10/2012 OFFICE/OUTPATIENT VISIT EST Diagnosis: PAIN, LOWER BACK[ICD9: 724.2] Diagnosis: LUMBAR DISC DISPLACEMENT[ICD9: 722.10] María Elena ISAAC TANIA ValdesJj TD [facility] CPT-4: 59263 12/11/2011 OFFICE/OUTPATIENT VISIT EST Diagnosis: MIGRAINE NOS/NOT INTRCBL[ICD9: 346.90] Diagnosis: SINUSITIS, ACUTE[ICD9: 461.9] María Elena JUARES LucioJj TD [facility] CPT-4: 96828 11/09/2011 OFFICE/OUTPATIENT VISIT EST Diagnosis: MIGRAINE NOS/NOT INTRCBL[ICD9: 346.90] Diagnosis: LYMPHADENOPATHY[ICD9: 785.6] María Elena ValdesJj TD [facility] CPT-4: 57709 09/13/2011 OFFICE/OUTPATIENT VISIT EST Diagnosis: MALAISE AND FATIGUE[ICD9: 780.79] Diagnosis: ARTHRALGIA-MULTIPLE SITES[ICD9: 719.49] María Elena ValdesJj TD [facility] CPT-4: 25041 08/31/2011 OFFICE/OUTPATIENT VISIT EST Diagnosis: SINUSITIS, ACUTE[ICD9: 461.9] María Elena ValdesJj TD [facility] CPT-4: 22210 07/20/2011 OFFICE/OUTPATIENT VISIT EST Diagnosis: HYPERTENSION[ICD9: 401.9] Diagnosis: PAIN, LOWER BACK[ICD9: 724.2] Diagnosis: SPASM OF MUSCLE[ICD9: 728.85] María Elena ValdesJj TD [facility] CPT-4: 14561 07/06/2011 OFFICE/OUTPATIENT VISIT EST Diagnosis: MIGRAINE NOS/NOT INTRCBL[ICD9: 346.90] Diagnosis: HYPERTENSION[ICD9: 401.9] María Elena ValdesJj SEAMUS [facility] CPT-4: 63977 05/22/2011 OFFICE/OUTPATIENT VISIT EST Diagnosis: SINUSITIS, ACUTE[ICD9: 461.9] Diagnosis: MIGRAINE NOS/NOT INTRCBL[ICD9: 346.90] Diagnosis: Dehydration[ICD9: 276.51] Diagnosis: Vomiting[ICD9: 787.03] María Elenamarcella Hicks SEAMUSGALINA Bazzi [facility] CPT-4: 11940 05/09/2011 ([id number]) OFFICE/OUTPATIENT VISIT EST María Elena Seamusmindivictorino AMRLIN TANIA ValdesJj TD [facility] CPT-4: 46166 02/14/2011 ([id number]) OFFICE/OUTPATIENT VISIT EST María Elena Seamusmindivictorino MARLIN TANIA ValdesJj [facility] CPT-4: 27201 02/03/2011 ([id number]) OFFICE/OUTPATIENT VISIT EST María Elena Seamusmindivictorino MARLIN TANIA ValdesJj MARIVELER [facility] CPT-4: 98759 01/31/2011 ([id number]) OFFICE/OUTPATIENT VISIT EST María Elena [facility]IN [facility] CPT-4: 77692 01/25/2011 ([id number]) OFFICE/OUTPATIENT VISIT EST María Elena ISAAC UJARED [facility] CPT-4: 22582 01/18/2011 ([id number]) OFFICE/OUTPATIENT VISIT EST María Elena MARIN SJj [facility] CPT-4: 47245 11/29/2010 ([id number]) OFFICE/OUTPATIENT VISIT, EST María Elena BRAUNLINE [facility] CPT-4: 06497 10/10/2010 ([id number]) OFFICE/OUTPATIENT VISIT, EST María Elena MONTERO QUELINE [facility] CPT-4: 38853 06/07/2010 ([id number]) OFFICE/OUTPATIENT VISIT, EST María Elena BRAUNLINE [facility] CPT-4: 88475 04/27/2010 ([id number]) OFFICE/OUTPATIENT VISIT, EST María Elena MONTERO QUELINE [facility] CPT-4: 57992 04/05/2010 ([id number]) OFFICE/OUTPATIENT VISIT, EST María Elena MONTERO QUELINE [facility] CPT-4: 81460 03/09/2010 ([id number]) OFFICE/OUTPATIENT VISIT, EST María Elena REED [facility] CPT-4: 34670 03/03/2010 ([id number]) OFFICE/OUTPATIENT VISIT, EST María Elena REED [facility] CPT-4: 02584 01/17/2010 ([id number]) PREV VISIT, EST, AGE 40-64 María Elena COLEMAN [facility] CPT-4: 66893 12/27/2009 Plan of Care Planned Activity Notes [...] ICD-10 : S90.821A 02/12/2020 Appointment: Kathleen Zuniga [address] [place] [address] ACUTE ILLNESS 02/12/2020 Visit Diagnosis Plan: Essential [...] E11.65 01/13/2020 Appointment: María Elena Appiah WPtel: [address] [place], [place] [address] [place] FOLLOW UP 01/13/2020 Patient Education: lisinopril- [employer] [id number] Completed 01/13/2020 Patient Education: glimepiride- [employer] [id number] Completed 01/13/2020 Appointment: María Elena Appiah WPtel: [address] [place], [place] [address] [place] CANCELED 11/26/2019 Visit Diagnosis Plan: Type 2 diabetes mellitus with hy perglycemia Discussion: Januvia 100mg daily Glimepride 2mg po BID Accuchecks BID Call in 2 weeks with BS readings Get formulary book ICD-9 : 250.02 ICD-10 : E11.65 11/20/2019 Appointment: María Elena Appiah WPtel: [phone] [id number] FOLLOW UP 11/20/2019 Patient Education: glimepiride- [employer] [id number] Completed 11/20/2019 Patient Education: Januvia- [employer]on [id number] Completed 11/20/2019 Visit Diagnosis Plan: Ingrowing nail Discussion: lilyu mao with patient that she needs to have [...] ICD-10 : E11.65 10/07/2019 Appointment: Kathleen Zuniga [address] [place], [place] [id number] OFFICE SURGERY 10/07/2019 Visit Diagnosis Plan: Hypertriglyceridemia [...] E11.65 09/30/2019 Appointment: María Elena Appiah WPtel: [address] [place], [place] [phone] [place] CHECK UP 09/30/2019 Patient Education: Premarin- [employer] C[employer]on [id number] [email or web address] Completed 09/30/2019 Appointment: María Elena Appiah WPtel: [address] [place], [place] [phone] [place] LAB 09/29/2019 Appointment: María Elena Appiah WPtel: [address] [place], [place] [phone] [place] Won't have the new insurance till [...] [id number].XXXS 05/28/2019 Appointment: María Elena Appiah WPtel: [address] [place], [place] [id number] [place] FOLLOW UP 05/28/2019 Appointment: María Elena Appiah WPtel: [address] [place], [place] [phone] [place] BP CHECK 05/19/2019 Visit Diagnosis Plan: [...] 01/22/2019 Appointment: María Elena Appiah WPtel: [address] [place] [address] [place] FOLLOW UP 01/22/2019 Patient Education: estradiol- [employer] Coupon [id number] [email or web address] Completed 01/22/2019 Appointment: María Elena Appiah WPtel: [address] [place] [address] [place] CANCELED 01/20/2019 Appointment: María Elena Appiah WPtel: [address] [place] [address] US LM NO SHOW 01/06/2019 Appointment: María Elena Appiah WPtel: [address] [place] [address] [place] CANCELED 10/17/2018 Appointment: María Elena Appiah WPtel: [address] [place] [address] US BP CHECK 10/09/2018 Visit Diagnosis Plan: Type 2 diabetes mellitus with hy perglycemia Discussion: Patient still has not gotten lab done--will go today Check UA for microalbumin Follow Up: 3 months ICD-9 : 250.02 ICD-10 : E11.65 09/30/2018 Visit Diagnosis Plan: Essential (primary) hypertension Discussion: Continue current meds and monitor BP ICD-9 : 401.9 ICD-10 : I10 09/30/2018 Appointment: María Elena Appiahtel: [address] [place] [address] FOLLOW UP 09/30/2018 Visit Diagnosis Plan: Pain [...] F51.01 08/27/2018 Appointment: María Elena Appiah WPtel: [address] [place] [address] ACUTE ILLNESS 08/27/2018 Appointment: María Elena Appiah WPtel: [address] [place] [address] US Patient stated she went out to [...] Tyle... 08/09/2018 Appointment: María Elena Appiah WPtel: [address] [place] [address] ACUTE ILLNESS 08/09/2018 Appointment: María Elena Appiah WPtel: [address] [place] [address] US NO SHOW 08/08/2018 Visit Diagnosis Plan: Anxiety [...] B35.4 07/22/2018 Appointment: María Elena Appiah WPtel: [address] [place] [address] ACUTE ILLNESS 07/22/2018 Appointment: María Elena Appiah WPtel: [address] [place] [address] US INJECTION 06/19/2018 Patient Education: Patient Medication [...] ICD-10 : L03.031 06/17/2018 Appointment: Kathleen Zuniga [address] [place] [address] ACUTE ILLNESS 06/17/2018 Patient Education: Patient Medication [...] ICD-10 : B02.9 05/16/2018 Appointment: Kathleen Zuniga [address] [place] [address] ACUTE ILLNESS 05/16/2018 Patient Education: Patient Medication [...] 682.7 ICD-10 : L03.115 03/20/2018 Appointment: Kathleen Zuniag [address] [place], [place] [address] FOLLOW UP 03/20/2018 Patient Education: Patient Medication [...] ICD-10 : L03.115 03/18/2018 Appointment: Kathleen Zuniga [address] [place], [place] [address] FOLLOW UP 03/18/2018 Patient Education: Patient Medication [...] ICD-10 : L03.115 03/15/2018 Appointment: Kathleen Zuniga [address] [place], [place] [id number] ACUTE ILLNESS 03/15/2018 Patient Education: Patient [...] ICD-10 : J01.90 02/11/2018 Appointment: Kathleen Zuniga [address] [place], [place] [id number] ACUTE ILLNESS 02/11/2018 Patient Education: Patient Medication Summary Completed 02/11/2018 Appointment: María Elena Appiah WPtel: [phone] [id number] INJECTION 02/01/2018 Patient Education: Patient Medication [...] ICD-10 : M51.16 01/30/2018 Appointment: Kathleen Zuniga [address] [place] [id number] ACUTE ILLNESS 01/30/2018 Patient Education: Patient Medication Summary Completed 01/30/2018 Patient Education: Arian - 18+ - No ALEX JEAN [place] Completed 01/30/2018 Visit Diagnosis Plan: [...] E11.65 12/18/2017 Appointment: María Elena Appiah WPtel: [address] [place] [address] Annual Well Visit 12/18/2017 Patient Education: Patient Medication Summary Completed 12/18/2017 Care Plan: Referral Order SNOMED-CT : [id number] Pending 12/18/2017 Appointment: María Elena Appiah WPtel: [address] [place], [place] [id number] [place] INJECTION 12/10/2017 Patient Education: Patient Medication [...] ICD-10 : L03.031 12/07/2017 Appointment: Kathleen Zuniga [address] [place], [place] [id number] ACUTE ILLNESS 12/07/2017 Patient Education: Patient Medication [...] ICD-10 : J01.00 10/08/2017 Appointment: Kathleen Zuniga [address] [place], [place] [id number] ACUTE ILLNESS 10/08/2017 Patient Education: Patient Medication Summary Completed 10/08/2017 Appointment: María Elena Appiah WPtel: [phone] [facility] INJECTION 09/21/2017 Patient Education: Patient Medication Summary [...] ICD-10 : R06.83 09/20/2017 Appointment: Kathleen Zuniga [address] [place] [address] ACUTE ILLNESS 09/20/2017 Patient Education: Patient Medication [...] ICD-10 : L60.0 08/29/2017 Appointment: Kathleen Zuniga [address] [place], [place] [phone] OFFICE SURGERY 08/29/2017 Patient Education: Patient Medication Summary Completed 08/29/2017 Visit Diagnosis Plan: Actinic keratosis Discussion: Cr yotherapy as above ICD-9 : 702.0 ICD-10 : L57.0 08/01/2017 Appointment: María Elena Appiah WPtel: [phone] [facility] OFFICE SURGERY 08/01/2017 Patient Education: Patient Medication Summary Completed 08/01/2017 Appointment: María Elena Appiah WPtel: [phone] [facility] PATIENT THOUGHT APPOINTMENT WAS TOMORROW 07/26/17 CALLED 15 MINUTES BEFORE APPT TO SAY SHE DIDN'T HAVE ANYONE TO COVER HER BUSINESS AND WOULD NOT MAKE IT NO SHOW 07/25/2017 Visit Diagnosis Plan: Cellulitis of left toe Discussio n: Clindamycin and notify if worsening or persistis ICD-9 : 681.10 ICD-10 : L03.032 07/19/2017 Appointment: María Elena Appiah WPtel: [phone] [facility] MEDICATION REVIEW 07/19/2017 Patient Education: Patient Medication Summary Completed 07/19/2017 Appointment: María Elena Appiah WPtel: [phone] [facility] [place] CANCELED 07/04/2017 Visit Diagnosis Plan: Generalized hyperhidrosis Discus ian: CBC, CMP, TSH, free T4 ordered to assess. will review labs. ICD-9 : 780.8 ICD-10 : R61 06/27/2017 Visit Diagnosis Plan: Chronic sinusitis, unspecified D iscussion: Referral sent to dr. albarado in [place] per patient request. patient has been treated multiple times for sinus infections with no recovery. patient was seen by dr sanchez in the past with no interventions. patient has deviated septum which may be affecting her sinuses. 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, including hip Discussion: Shave removal of above lesio n--sent to pathology ICD-9 : 216.7 ICD-10 : D23.72 01/24/2017 Appointment: María Elena Appiah WPtel: [address] [place] [address] 01/23 confirmed ~sl OFFICE SURGERY 01/24/2017 Patient Education: Patient Medication Summary Completed 01/24/2017 Appointment: Loan Sánchez [address] [place] [address] 01/09 rescheduled~sl RESCHEDULED 01/15/2017 Visit Diagnosis Plan: [...] L81.4 12/13/2016 Appointment: María Elena Appiah WPtel: [address] [place] [address] 12/12 confirmed ~sl MEDICATION REVIEW 12/13/2016 Patient Education: Patient Medication Summary Completed 12/13/2016 Appointment: María [facility]Ptel[facility] [phone] [facility] [place] rescheduled for 12/13/16 at 11am RESCHEDULED 0 12/06/2016 Appointment: María Elena Appiah WPtel: [address] [place], [place] [id number] [place] CANCELED 11/23/2016 Patient Education: Patient Medication [...] F51.01 11/01/2016 Appointment: María Elena Appiah WPtel: [address] [place], [place] [id number] [place] 10/31 lm `sl 11/01 lm`sl MEDICATION REVIEW 017 Patient Education: Patient Medication Summary Completed 11/01/2016 Referral: Canelo Overton WPtel: [phone] [id number] [place] Referral Initiated 10/30/2016 Visit Diagnosis Plan: [...] Z01.419 10/17/2016 Appointment: María Elena Appiah WPtel: [phone] [facility] [place] 2/ confirmed ~sl PAP 10/17/2016 Patient Education: Patient Medication Summary Completed 10/17/2016 Care Plan: MAMMOGRAM SCREENING LOINC : 2 6347-5 Pending 10/17/2016 Visit Diagnosis Plan: Other seasonal allergic rhinitis Discussion: Decadron/Garamycin Nasal Thornton Mix Too soon for steroid Retry zyrtec 10mg daily ICD-9 : 477.9 ICD-10 : J30.2 10/10/2016 Appointment: María Elena Appiah WPtel: [address] [place], [place] [phone] FOLLOW UP 10/10/2016 Patient Education: Patient Medication Summary Completed 10/10/2016 Appointment: María Elena Appiah WPtel: [address] [place], [place] [id number] 10/02 reschedule ` RESCHEDULED 10/02/2016 Visit Plan: See surgery for removal of n ew left arm lesion and right foot lesion Lyrica to use next month for left arm paresthesias Continue current meds Discussed sunscreen/sunblock combo 09/19/2016 Appointment: María Elena Appiah WPtel: [address] [place], [place] [id number] 09/18 confirmed ~sl FOLLOW UP 09/19/2016 Patient Education: Patient Medication Summary Completed 09/19/2016 Patient Education: Patient Medication Summary Completed 09/18/2016 Care Plan: MAMMOGRAM BOTH BREASTS LOINC : 24590-9 Pending 09/18/2016 Visit Plan: Discussed that needs [...] sinuses 08/24/2016 Appointment: María Elena Appiah WPtel: [address] [place], [place] [phone] ACUTE ILLNESS 08/24/2016 Patient Education: Patient Medication Summary Completed 08/24/2016 Patient Education: Patient Medication Summary Completed 08/23/2016 Care Plan: MAMMOGRAM SCREENING LOINC : 2 6347-5 Pending 08/23/2016 Visit Plan: Finish doxycycline Add Breo 100/25 1 p BID for 2 weeks If not improving within next 2 days will get CXR 08/16/2016 Appointment: María Elena Appiah WPtel: [address] [place] [address] ACUTE ILLNESS 08/16/2016 Patient Education: Patient Medication Summary Completed 08/16/2016 Visit Plan: Supportive care. Rest, Fluid s, Tylenol/Motrin prn fever or bodyaches. Notify if worsening symptoms. Doxycyline and Prednisone 08/10/2016 Appointment: María Elena Appiah WPtel: [address] [place] [address] 08/09 lm`sl....confirmed-sp FOLLOW UP 09/2015 Patient Education: Patient Medication Summary Completed 08/10/2016 Visit Plan: Saline nasal flushes prn. Ty lenol/Motrin prn headache. Notify if persists/symptoms worsening. Dexamethasone 8mg IM today May use coricedan and mucinex 08/02/2016 Appointment: María Elena Appiah WPtel: [address] [place] [address] ACUTE ILLNESS 08/02/2016 Patient Education: Patient Medication Summary Completed 08/02/2016 Visit Plan: Cryotherapy as above and lef t forearm lesion removal as above with 5-0 punch biopsy and sent to path Return in 10 days for suture removal 08/01/2016 Appointment: María Elena Appiah WPtel: [address] [place], [place] [id number] 07/31 confirmed`~sl OFFICE SURGERY 08/01/2016 Patient Education: Patient Medication Summary Completed 08/01/2016 Visit Plan: Stop clindamycin Check CBC, CMP, ESR now/STAT 07/27/2016 Appointment: María Elena Appiah WPtel: [address] [place] [address] ACUTE ILLNESS 07/27/2016 Patient Education: Patient Medication Summary Completed 07/27/2016 Visit Plan: Update lab and check ABIs to start with Will likely need cardiology evaluation to rule out PVD Clindamycin for 10 days Daily yogurt or probiotic Will return for removal of left arm lesions 07/20/2016 Appointment: María Elena Appiah WPtel: [address] [place] [address] ACUTE ILLNESS 07/20/2016 Patient Education: Patient Medication Summary Completed 07/20/2016 Patient Education: Patient Medication Summary Completed 07/20/2016 Care Plan: MAMMOGRAM BOTH BREASTS LOINC : 91103-2 Pending 07/20/2016 Care Plan: US EXAM CHEST LOINC : 27934-2 Pending 07/20/2016 Visit Plan: Wound culture collected from left great toe Appearance is somewhat staph like Rx as above Wound cleanser and skin care reviewed May need to add oral antibiotic if sores do not heal or continue to reoccur 07/06/2016 Appointment: Loan Sánchez [address] [place] [address] ACUTE ILLNESS 07/06/2016 Patient Education: Patient Medication Summary Completed 07/06/2016 Appointment: María Elena Appiah WPtel: [address] [place] [address] [place] INJECTION 05/25/2016 Patient Education: Patient Medication Summary Completed 05/25/2016 Visit Plan: Saline nasal flushes prn. Ty lenol/Motrin prn headache. Notify if persists/symptoms worsening. Dexamethasone and Rocephin given 04/26/2016 Appointment: María Elena Appiah WPtel: [address] [place] [address] ACUTE ILLNESS 04/26/2016 Patient Education: Patient Medication Summary Completed 04/26/2016 Visit Plan: Check CBC, CMP, TSH, FreeT4, HbA1C, estradiol, lipids in AM 03/02/2016 Appointment: María Elena Appiah WPtel: [address] [place] [address] 03/01 lm~sl ACUTE ILLNESS 03/02/2016 Patient Education: Patient Medication Summary Completed 03/02/2016 Visit Plan: Exam is nearly normal Needs to be taking daily antihistamine Would prefer to use oral steroids instead of shot but patient insist that oral steroids cause horrible headaches for her Will given kenalog IM instead 02/09/2016 Appointment: Loan Sánchez [address] [place] [address] ACUTE ILLNESS 02/09/2016 Patient Education: Patient Medication Summary Completed 02/09/2016 Visit Plan: Culture urine Macrobid DC xa nax Trial of Ativan 1mg q HS 01/24/2016 Appointment: María Elena Appiah WPtel: [address] [place] [address] ACUTE ILLNESS 01/24/2016 Patient Education: Patient Medication Summary Completed 01/24/2016 Visit Plan: No steroid or rocephin injec tion warranted Can have oral prednisone Continue current home regimen Needs to follow up with Dr Sanchez if problems persist 12/23/2015 Appointment: Loan Sánchez [address] [place] [address] ACUTE ILLNESS 12/23/2015 Patient Education: Patient Medication Summary Completed 12/23/2015 Visit Plan: Saline nasal flushes prn. Ty lenol/Motrin prn headache. Notify if persists/symptoms worsening. Kenalog 40mg IM today 12/08/2015 Appointment: María Elena Appiah WPtel: [address] [place] [address] 12/06 confirmed~sl ACUTE ILLNESS 12/08/2015 Patient Education: Patient Medication Summary Completed 12/08/2015 Appointment: María Elena Appiah WPtel: [address] [place] [address] ACUTE ILLNESS 11/18/2015 Patient Education: Patient Medication Summary Completed 10/11/2015 Appointment: María Elena Appiah WPtel: [address] [place] [address] [place] INJECTION 10/07/2015 Patient Education: Patient Medication Summary Completed 10/07/2015 Visit Plan: Check renal arterial doppler s and ECHO Change amlodopine to lotrel 5/20mg q HS Will need stress test as well Check CMP, uric acid, ESR 10/06/2015 Appointment: María Elena Appiah WPtel: [address] [place], [place] [phone] ACUTE ILLNESS 10/06/2015 Patient Education: Patient Medication Summary Completed 10/06/2015 Patient Education: [facility] - Saving [employer] - Amlodipine Besylate - 18-64 - Dynamic Portal ID Completed 10/06/2015 Appointment: María Elena Appiah WPtel: [address] [place], [place] [phone] [place] FOLLOW UP 09/22/2015 Visit Plan: Cephalexin 500 mg PO bid Mery ly topical Mupirocin to lesions on left lateral neck and face Follow-up in one week. Sooner if symptoms worsen 09/14/2015 Appointment: June Flores WPtel: [address] [place], [place] [id number] ACUTE ILLNESS 09/14/2015 Patient Education: Patient Medication Summary Completed 09/14/2015 Visit Plan: Change bystolic to bedtime d osing and amlodopine to morning dosing Cryotherapy as above to AKs 09/07/2015 Appointment: María Elena Appiah WPtel: [address] [place] [address] 09/06 appointment made and confirmed ~ FOLLOW UP 09/07/2015 Patient Education: Patient Medication Summary Completed 09/07/2015 Visit Plan: Increase bystolic back to 20 mg daily but will split and take 10mg in AM and 10mg in PM Stress Reducers 08/18/2015 Appointment: María Elena Appiah WPtel: [address] [place], [place] [phone] 08/17/15 appt confirmed cn ACUTE ILLNESS 08/18 Patient Education: Patient Medication Summary Completed 08/18/2015 Appointment: María Elena Appiah WPtel: [address] [place], [place] [phone] [place] BP CHECK 07/07/2015 Patient Education: Patient Medication Summary Completed 07/07/2015 Appointment: María Elena Appiah WPtel: [address] [place] [address] BP CHECK 06/24/2015 Patient Education: Patient Medication Summary Completed 06/24/2015 Appointment: María Elena Appiah WPtel: [address] [place] [address] BP CHECK 06/21/2015 Patient Education: Patient Medication Summary Completed 06/21/2015 Visit Plan: Lab discussed Continue curre nt meds and lifestyle modification Recheck lab in 6mos 06/16/2015 Appointment: María Elena Appiah WPtel: [address] [place] [address] 06/15 confirmed FOLLOW UP 06/16/2015 Patient Education: Patient Medication Summary Completed 06/16/2015 Patient Education: Patient Medication Summary Completed 06/15/2015 Visit Plan: Increase cymbalta to 60mg q HS Keep clonidine at current dose Recheck 2weeks Change xanax to klonopin 06/02/2015 Appointment: María Elena Appiah WPtel: [address] [place] [address] 06/02 lm FOLLOW UP 06/02/2015 Patient Education: Patient Medication Summary Completed 06/02/2015 Appointment: María Elena Appiah WPtel: [address] [place] [address] ACUTE ILLNESS 05/24/2015 Visit Plan: Increase clonidine to 0.2mg q HS Add cymbalta 30mg q HS Recheck 2weeks Stress Reducers Check fasting lab Discussed sleep study 05/20/2015 Appointment: María Elena Appiah WPtel: [address] [place] [address] ACUTE ILLNESS 05/20/2015 Patient Education: Patient Medication Summary Completed 05/20/2015 Patient Education: [facility] - Saving [employer] - Cymbalta - 18-64 - Dynamic Portal ID Completed 05/20/2015 Appointment: María Elena Appiah WPtel: [address] [place] [address] BP CHECK 05/19/2015 Patient Education: Patient Medication Summary Completed 05/19/2015 Visit Plan: Topical Bactroban alternatin g with topical betamethasone Recheck 2weeks 05/10/2015 Appointment: María Elena Appiah WPtel: [address] [place], [place] [phone] 05/07 vm cn...05/07 appt confirmed OFFICE SURGER Y 05/10/2015 Patient Education: Patient Medication Summary Completed 05/10/2015 Referral: Patrick Chandler WPtel: [facility] [id number] [place] Referral Initiated 05/04/2015 Visit Plan: Saline nasal flushes prn. Ty lenol/Motrin prn headache. Notify if persists/symptoms worsening. Depomedrol 40mg IM today 03/16/2015 Appointment: María Elena Appiah WPtel: [address] [place], [place] [id number] ACUTE ILLNESS 03/16/2015 Patient Education: Patient Medication Summary Completed 03/16/2015 Appointment: María Elena Appiah WPtel: [address] [place], [place] [phone] ER Follow UP 03/09/2015 Visit Plan: Cryotherapy to lesions as ab ove 10/27/2014 Appointment: María Elena Appiah WPtel: [address] [place], [place] [phone] OFFICE SURGERY 10/27/2014 Patient Education: Patient Medication Summary Completed 10/27/2014 Appointment: June Flores WPtel: [address] [place], [place] [id number] ACUTE ILLNESS 09/11/2014 Patient Education: Patient Medication Summary Completed 09/11/2014 Visit Plan: Lab discussed Lipitor 10mg d aily Coenzyme Q-10 400mg daily Vitamin D3 5000u daily Recheck lipids with LFTs in 3mos then fwup 08/31/2014 Appointment: María Elena Appiah WPtel: [phone] 08/28 voicemail FOLLOW UP 08/31/2014 Patient Education: Patient Medication Summary Completed 08/31/2014 Appointment: María Elena Appiahtel: [address] [place] [address] LAB 08/27/2014 Appointment: María Elena Appiah WPtel: [address] [place] [address] LAB 08/27/2014 Patient Education: Patient Medication Summary Completed 08/27/2014 Appointment: María Elena Appiah WPtel: [address] [place] [address] ACUTE ILLNESS 07/23/2014 Appointment: María Elena Appiah WPtel: [address] [place] [address] ACUTE ILLNESS 07/21/2014 Patient Education: Patient Medication Summary Completed 07/21/2014 Visit Plan: Kenalog 40mg IM today Contin ue narendra and singulair Add Flonase 07/15/2014 Appointment: María Elena Appiahtel: [address] [place] [address] ACUTE ILLNESS 07/15/2014 Appointment: María Elena Appiah WPtel: [address] [place] [address] ACUTE ILLNESS 07/15/2014 Patient Education: Patient Medication Summary Completed 07/15/2014 Visit Plan: Will do metolazone 2.5mg prn with 6 potassium and see if causes as severe cramping Trial of of seroquel XR 50mg q PM with evening meal and let us know how works 05/18/2014 Appointment: María Elena Appiahtel: [address] [place] [address] 05/15 left message FOLLOW UP 05/18/2014 Patient Education: Patient Medication Summary Completed 05/18/2014 Appointment: María Elena Appiah WPtel: [address] [place], [place] [phone] [place] LAB 05/14/2014 Patient Education: Patient Medication Summary Completed 05/14/2014 Appointment: María Elena Appiah WPtel: [address] [place], [place] [phone] [place] INJECTION 04/22/2014 Visit Plan: Rocephin and Kenalog today a nd finish abx given from urgent care 04/21/2014 Appointment: María Elena Appiah WPtel: [address] [place] [address] [place] INJECTION 04/21/2014 Patient Education: Patient Medication Summary Completed 04/21/2014 Appointment: June Flores WPtel: [address] [place] [address] ACUTE ILLNESS 03/04/2014 Patient Education: Patient Medication Summary Completed 03/04/2014 Appointment: María Elena Appiah WPtel: [address] [place], [place] [id number] [place] INJECTION 02/27/2014 Patient Education: Patient Medication Summary Completed 02/27/2014 Visit Plan: Cryotherapy as above to all lesions Patient wants to try no meds for insomnia for a while and see how goes 01/13/2014 Appointment: María Elena Appiah WPtel: [address] [place] [address] OFFICE SURGERY 01/13/2014 Patient Education: Patient Medication Summary Completed 01/13/2014 Visit Plan: Stop Melatonin Stop Soma Tri al of trazadone 75mg q HS See ENT for possible tubes as has had chronic ETD and serous otitis media with numerous steroids 12/24/2013 Appointment: María Elena Appiah WPtel: [address] [place] [address] ACUTE ILLNESS 12/24/2013 Patient Education: Patient Medication Summary Completed 12/24/2013 Visit Plan: Saline nasal flushes prn. Ty lenol/Motrin prn headache. Notify if persists/symptoms worsening. 11/12/2013 Appointment: María Elena Appiahtel: [address] [place] [address] ACUTE ILLNESS 11/12/2013 Patient Education: Patient Medication Summary Completed 11/12/2013 Appointment: María Elena Appiah WPtel: [address] [place] [address] ACUTE ILLNESS 10/21/2013 Patient Education: Patient Medication Summary Completed 10/21/2013 Visit Plan: Sleep hygiene and sleep rout ine Melatonin 10mg q HS Support stockings and observe 09/22/2013 Appointment: María Elena Appiah WPtel: [address] [place] [address] ACUTE ILLNESS 09/22/2013 Patient Education: Patient Medication Summary Completed 09/22/2013 Appointment: June Flores WPtel: [address] [place] [address] ACUTE ILLNESS 08/27/2013 Patient Education: Patient Medication Summary Completed 08/27/2013 Visit Plan: Proceed with CT scan of head /neck Proceed with occipital nerve injections Butrans 20mcg patch weekly until can get into see Dr. Mcdonough for injections 08/04/2013 Appointment: Maíra Elena Appiah WPtel: [address] [place] [address] FOLLOW UP 08/04/2013 Patient Education: Patient Medication Summary Completed 08/04/2013 Visit Plan: OMT done Daily neck stretche s, moist heat Increase Celebrex to 200mg BID Add flexeril 07/23/2013 Appointment: María Elena Appiah WPtel: [address] [place] [address] 07/22 voicemail FOLLOW UP 07/23/2013 Patient Education: Patient Medication Summary Completed 07/23/2013 Appointment: María Elena Appiah WPtel: [address] [place] [address] ACUTE ILLNESS 06/23/2013 Patient Education: Patient Medication Summary Completed 06/23/2013 Appointment: María Elena Appiahl: [address] [place], [place] [phone] ACUTE ILLNESS 05/26/2013 Patient Education: Patient Medication Summary Completed 05/26/2013 Visit Plan: Decrease clonidine to 0.1mg TID If BP remains stable consider decreasing amlodopine Prednisone for 5 days BP check in 1mo 04/16/2013 Appointment: María Elena Appiah WPtel: [address] [place] [address] 04/14 pt called and confirmed appt FOLLOW UP 04/16/2013 Patient Education: Patient Medication Summary Completed 04/16/2013 Appointment: María Elena Appiah WPtel: [address] [place] [address] ACUTE ILLNESS 03/05/2013 Patient Education: Patient Medication Summary Completed 03/05/2013 Visit Plan: Pt has MARIA ELENA on with Dr. Mcdonough Continue Butrans patch Refill Hydrocodone early tomorrow 12/23/2012 Appointment: María Elena Appiah WPtel: [address] [place] [address] FOLLOW UP 12/23/2012 Patient Education: Patient Medication Summary Completed 12/23/2012 Appointment: Lashawn Eckert WPtel: [address] [place] [address] ACUTE ILLNESS 12/16/2012 Patient Education: Patient Medication Summary Completed 12/16/2012 Visit Plan: Proceed with updated MRI of LS spine Continue gabapentin and add soma and diclofenac Will likely need to go for another epidural 12/09/2012 Appointment: María Elena Appiah WPtel: [address] [place] [address] ACUTE ILLNESS 12/09/2012 Patient Education: Patient Medication Summary Completed 12/09/2012 Visit Plan: Injection as above Finish me drol dose pack Chiropracter this afternoon 12/04/2012 Appointment: María Elena Appiah WPtel: [address] [place] [address] ACUTE ILLNESS 12/04/2012 Patient Education: Patient Medication Summary Completed 12/04/2012 Appointment: Mary Tillman WPtel: [address] [place] [address] FOLLOW UP 11/22/2012 Patient Education: Patient Medication Summary Completed 11/22/2012 Appointment: María Elena Appiah WPtel: [address] [place] [address] ACUTE ILLNESS 11/21/2012 Patient Education: Patient Medication Summary Completed 11/21/2012 Appointment: María Elena Appiah WPtel: [address] [place] [address] BP CHECK 11/07/2012 Patient Education: Patient Medication Summary Completed 11/07/2012 Visit Plan: reports extra clonidine and extra amlodipine and extra alprazalam. extra Ketolorac and promethazine last night. Bystolic 10 mg QAM and will continue all other blood pressure meds. Pt. encouraged to rest and hydrate. Discussed stroke and AR symptoms. Pt. instructed to seek ER eval if symptoms worsen or headache persists. Pt. agrees to ER eval/EMS transport if symptoms worsen. BP re-check. 10/29/2012 Appointment: Lashawn Eckert WPtel: [address] [place] [address] ACUTE ILLNESS 10/29/2012 Patient Education: Patient Medication Summary Completed 10/29/2012 Appointment: María Elena Appiah WPtel: [address] [place] [address] ACUTE ILLNESS 10/14/2012 Patient Education: Patient Medication Summary Completed 10/14/2012 Appointment: María Elena Appiah WPtel: [address] [place] [address] 09/27/2012 Patient Education: Patient Medication Summary Completed 09/27/2012 Appointment: María Elena Appiah WPtel: [address] [place] [address] ACUTE ILLNESS 09/25/2012 Patient Education: Patient Medication Summary Completed 09/25/2012 Appointment: María Elena Appiah WPtel: [address] [place], [place] [id number] BP CHECK 09/24/2012 Appointment: María Elena Appiah WPtel: [address] [place], [place] [id number] ACUTE ILLNESS 08/29/2012 Patient Education: Patient Medication Summary Completed 08/29/2012 Visit Plan: Cryotherapy as above See Karlos m for right ear lesion--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 ACUTE ILLNESS 05/06/2012 Patient Education: Patient Medication Summary Completed 05/06/2012 Visit Plan: Pt wants to hold on any furt her sleep medications 04/03/2012 Appointment: María Elena Appiah WPtel: [address] [place], [place] [phone] FOLLOW UP 04/03/2012 Patient Education: Patient Medication Summary Completed 04/03/2012 Appointment: María Elena Appiah WPtel: [address] [place], [place] [id number] FOLLOW UP 03/19/2012 Patient Education: Patient Medication Summary Completed 03/19/2012 Appointment: María Elena Appiah WPtel: [address] [place], [place] [phone] BP CHECK 02/22/2012 Patient Education: Patient Medication Summary Completed 02/22/2012 Appointment: María Elena Appiahl: [address] [place] [address] BP CHECK 02/21/2012 Patient Education: Patient Medication Summary Completed 02/21/2012 Visit Plan: Doxycycline and bactroban fo r foot Supportive care on ankles and knees Add norvasc for BP 02/20/2012 Appointment: María Elena Appiah WPtel: [address] [place] [address] ER Follow UP 02/20/2012 Patient Education: Patient Medication Summary Completed 02/20/2012 Appointment: María Elena Appiah WPtel: [address] [place] [address] ACUTE ILLNESS 01/30/2012 Patient Education: Patient Medication Summary Completed 01/30/2012 Appointment: María Elena Appiah WPtel: [address] [place] [address] ACUTE ILLNESS 01/24/2012 Patient Education: Patient Medication Summary Completed 01/24/2012 Visit Plan: Daily back stretches, moist heat, Biofreeze prn OMT done 01/10/2012 Appointment: María Elena Appiah WPtel: [address] [place] [address] ACUTE ILLNESS 01/10/2012 Patient Education: Patient Medication Summary Completed 01/10/2012 Appointment: María Elena Appiah WPtel: [address] [place] [address] FOLLOW UP 12/11/2011 Patient Education: Patient Medication Summary Completed 12/11/2011 Appointment: María Elena Appiah WPtel: [address] [place] [address] ACUTE ILLNESS 11/09/2011 Patient Education: Patient Medication Summary Completed 11/09/2011 Appointment: María Elena Appiah WPtel: [address] [place] [address] ACUTE ILLNESS 09/13/2011 Patient Education: Patient Medication Summary Completed 09/13/2011 Visit Plan: Check CBC, TSH, Free T4, CMP , ESR, Vit D, B12 now Start Prednisone today 08/31/2011 Appointment: María Elena Appiahtel: [address] [place], [place] [id number] ACUTE ILLNESS 08/31/2011 Patient Education: Patient Medication Summary Completed 08/31/2011 Appointment: María Elena Appiahtel: [address] [place], [place] [phone] [place] INJECTION 07/20/2011 Patient Education: Patient Medication Summary Completed 07/20/2011 Visit Plan: Continue current meds Monite r BP Cont stretches from PT 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 07/06/2011 Appointment: María Elena Appiahtel: [address] [place] [address] FOLLOW UP 07/06/2011 Patient Education: Patient Medication Summary Completed 07/06/2011 Appointment: María Elena Appiahtel: [address] [place] [address] BP CHECK 06/06/2011 Patient Education: Patient Medication Summary Completed 06/06/2011 Visit Plan: Add Bystolic at 2.5mg QAM Ad d Robaxin 750mg 2 po q HS BP check in 2wks 05/22/2011 Appointment: María Elena Appiahtel: [address] [place], [place] [phone] FOLLOW UP 05/22/2011 Patient Education: Patient Medication Summary Completed 05/22/2011 Appointment: María Elena Appiahtel: [address] [place], [place] [id number] ER Follow UP 05/09/2011 Patient Education: Patient Medication Summary Completed 05/09/2011 Appointment: María Elena Appiahtel: [address] [place] [phone] [place] FOLLOW UP 02/22/2011 Visit Plan: Rx written for Hydrocodone 1 0/325mg #240 See Ortho 02/14/2011 Appointment: María Elena Appiah WPtel: [address] [place] [address] [place] OMT 02/14/2011 Patient Education: Patient Medication [...] lab work. 02/03/2011 Appointment: Lashawn Eckert WPtel: [address] [place] [address] ACUTE ILLNESS 02/03/2011 Patient Education: Patient Medication Summary Completed 02/03/2011 Visit Plan: OMT done Cont daily stretche s 01/31/2011 Appointment: María Elena Appiah WPtel: [address] [place] [address] ACUTE ILLNESS 01/31/2011 Patient Education: Patient Medication Summary Completed 01/31/2011 Visit Plan: Continue pain meds OMT done Proceed with PT No work this summer01/25/2011 Appointment: María Elena Appiah WPtel: [address] [place] [address] ACUTE ILLNESS 01/25/2011 Patient Education: Patient Medication Summary Completed 01/25/2011 Visit Plan: Start PT Long discussion abo ut getting pain meds from only us and can only have max of 4grams of tylenol per day Change to Hydrocodone 10/325mg 1- 2 po TID prn pain--#180 called to aRdha 01/18/2011 Appointment: María Elena Appiah WPtel: [address] [place], [place] [phone] FOLLOW UP 01/18/2011 Patient Education: Patient Medication Summary Completed 01/18/2011 Visit Plan: Daily back stretches, moist heat, Biofreeze prn 11/29/2010 Appointment: María Elena Appiah WPtel: [address] [place], [place] [id number] ER Follow UP 11/29/2010 Patient Education: Patient Medication Summary Completed 11/29/2010 Visit Plan: Saline nasal flushes prn. Ty lenol/Motrin prn headache. Notify if persists/symptoms worsening. Finish augmentin Add Medrol Dose Pack 10/10/2010 Appointment: María Elena Appiahtel: [address] [place], [place] [id number] ACUTE ILLNESS 10/10/2010 Patient Education: Patient Medication Summary Completed 10/10/2010 Visit Plan: Cryotherapy x3 to multiple l esions on both forearms 07/19/2010 Appointment: María Elena Appiah WPtel: [address] [place], [place] [id number] OFFICE SURGERY 07/19/2010 Patient Education: Patient Medication Summary Completed 07/19/2010 Appointment: María Elena Appiahtel: [address] [place] [phone] BP CHECK 07/06/2010 Patient Education: Patient Medication Summary Completed 07/06/2010 Appointment: María Elena Appiah WPtel: [address] [place], [place] [phone] BP CHECK 06/30/2010 Patient Education: Patient Medication Summary Completed 06/30/2010 Appointment: María Elena Appiahtel: [address] [place], [place] [phone] BP CHECK 06/20/2010 Patient Education: Patient Medication Summary Completed 06/20/2010 Visit Plan: Change Diovan to Exforge 160 /5mg QD OMT done to thoracics BP check in 2wks 06/07/2010 Appointment: María Elena Appiahtel: [address] [place] [address] FOLLOW UP 06/07/2010 Patient Education: Patient Medication Summary Completed 06/07/2010 Appointment: María Elena Appiahtel: [address] [place] [address] BP CHECK 06/03/2010 Patient Education: Patient Medication Summary Completed 06/03/2010 Appointment: María Elena Appiah WPtel: [address] [place] [address] BP CHECK 06/01/2010 Patient Education: Patient Medication Summary Completed 06/01/2010 Visit Plan: Irritated skin tags to left neck x2 excised at base with scissors and base cauterized 05/30/2010 Appointment: María Elena Appiahtel: [address] [place] [address] OFFICE SURGERY 05/30/2010 Patient Education: Patient Medication Summary Completed 05/30/2010 Visit Plan: Saline nasal flushes prn. Ty lenol/Motrin prn headache. Notify if persists/symptoms worsening. Restart Nasonex Has allergy testing set for May 25 04/27/2010 Appointment: María Elena Appiahtel: [address] [place] [address] ACUTE ILLNESS 04/27/2010 Patient Education: Patient Medication Summary Completed 04/27/2010 Visit Plan: Saline nasal flushes prn. Ty lenol/Motrin prn headache. Notify if persists/symptoms worsening. Omnaris BID plus injections 04/05/2010 Appointment: María Elena Appiahtel: [address] [place] [address] ACUTE ILLNESS 04/05/2010 Patient Education: Patient Medication Summary Completed 04/05/2010 Visit Plan: Saline nasal flushes prn. Ty lenol/Motrin prn headache. Notify if persists/symptoms worsening. 03/09/2010 Appointment: María Elena Appiahl: [address] [place], [place] [id number] ACUTE ILLNESS 03/09/2010 Patient Education: Patient Medication Summary Completed 03/09/2010 Visit Plan: Cont Clonidine as is Cont Pr emarin Fwup with surgery as scheduled 03/03/2010 Appointment: María Elena Appiah WPtel: [address] [place] [address] FOLLOW UP 03/03/2010 Patient Education: Patient Medication Summary Completed 03/03/2010 Visit Plan: Check Pelvic US now Discusse d Dand C vs Hysterectomy 01/17/2010 Appointment: María Elena Appiah WPtel: [address] [place] [address] ACUTE ILLNESS 01/17/2010 Patient Education: Patient Medication Summary Completed 01/17/2010 Visit Plan: Check fasting lab and schedu le Mammogram 2gm Na Diet Trial of Ambien 10mg qhs Fwup pending lab results 12/27/2009 Appointment: María Elena Appiah WPtel: [address] [place], [place] [id number] ESTABLISHED PATIENT 12/27/2009 Patient Education: Patient Medication Summary Completed 12/27/2009 Referral: Canelo Overton WPtel: [address] [id number] [place] Referral Initiated Referral: Philipp Flores WPtel: [address] [id number] [place] Referral Appointment Requested Instructions Comment . [...] to rest and hydrate. Discussed stroke and AR symptoms. Pt. instructed to seek ER eval [...]
--- OUTSIDE RECORDS SUMMARY | 2020-03-13 04:27 | XMS REPORT | CCD ---
Author Author Gale Appiah D.O. 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 Name Role Phone María Elena Appiah D.O., PP Unavailable CCM Unavailable Summary Purpose Interface Exchange Insurance Providers Payer name Policy type / Coverage type Covered constitution party ID Effective Begin Date Effective End Date [facility] Commercial Insurance [id number] Unknown Family History Family History data not found Social History Social History Element Codes Description Effective Dates Tobacco history SNOMED CT: [id number] Never smoker 05/22/2011 Allergies, Adverse Reactions, Alerts [...] Fill Instructions Keflex 500 mg capsule RxNorm: 902456 1 Capsule(s) Oral two time s a day 02/12/2020 02/19/2020 Active Lipitor 10 mg tablet RxNorm: 884788 TAKE ONE TABLET BY MOUTH DAILY 01/23/2020 No Stop Date Active Januvia 100 mg tablet RxNorm: 235550 TAKE ONE TABLET BY MOUTH DAILY 01/22/2020 No Stop Date Active gabapentin 300 mg capsule RxNorm: 055085 TAKE ONE CAPSU LE BY MOUTH EVERY NIGHT AT BEDTIME 01/22/2020 No Stop Date Active allopurinol 300 mg tablet RxNorm: 218915 TAKE ONE TABLET BY LOPEZ TH DAILY 01/22/2020 No Stop Date Active Klor-Con 8 mEq tablet,extended release RxNorm: 162302 T FARRUKH ONE TABLET BY MOUTH TWICE A DAY 01/22/2020 No Stop Date Active doxepin 25 mg capsule RxNorm: 2333595 TAKE ONE CAPSULE B Y MOUTH EVERY NIGHT AT BEDTIME NEEDED FOR SLEEP 01/22/2020 No Stop Date Active glimepiride 4 mg tablet RxNorm: 247254 1 Tablet(s) Oral two times a day replaces 2mg dose 01/13/2020 04/12/2020 Active lisinopril 40 mg tablet RxNorm: 207643 1 Tablet(s) Oral QD repl aces 20mg dose 01/13/2020 04/12/2020 Active hydrocodone 10 mg-acetaminophen 325 mg tablet RxNorm: 066464 1-2 Tablet(s) Oral three times a day as needed for pain 01/12/2020 No Stop Date Active cyclobenzaprine 10 mg tablet RxNorm: 542967 TAKE ONE TA BLET BY MOUTH THREE TIMES A DAY NEEDED FOR MUSCLE SPASMS 01/05/2020 No Stop Date Active triamterene 75 mg-hydrochlorothiazide 50 mg tablet RxNorm: 3 57422 TAKE ONE TABLET BY MOUTH DAILY 12/29/2019 No Stop Date Active Klor-Con 8 mEq tablet,extended release RxNorm: 012885 T FARRUKH ONE TABLET BY MOUTH TWICE A DAY 12/19/2019 01/21/2020 Inactive allopurinol 300 mg tablet RxNorm: 750190 TAKE ONE TABLET BY LOPEZ TH DAILY 12/19/2019 01/21/2020 Inactive glimepiride 2 mg tablet RxNorm: 056421 TAKE ONE TABLET BY MOUTH TWICE A DAY 12/19/2019 01/12/2020 Inactive hydrocodone 10 mg-acetaminophen 325 mg tablet RxNorm: 229198 1-2 Tablet(s) Oral three times a day as needed for pain 12/10/2019 01/11/2020 Inactive Januvia 100 mg tablet RxNorm: 492459 1 Tablet(s) Oral QD 11/20/2019 0 11/20/2019 Inactive glimepiride 2 mg tablet RxNorm: 295540 1 Tablet(s) Oral two sawyer es a day 11/20/2019 12/18/2019 Inactive cyclobenzaprine 10 mg tablet RxNorm: 479626 TAKE ONE TA BLET BY MOUTH THREE TIMES A DAY NEEDED FOR MUSCLE SPASMS 11/17/2019 01/04/2020 Inactive doxepin 25 mg capsule RxNorm: 2083911 TAKE ONE CAPSULE B Y MOUTH EVERY NIGHT AT BEDTIME NEEDED FOR SLEEP 11/16/2019 01/21/2020 Inactive Klor-Con 8 mEq tablet,extended release RxNorm: 543034 T FARRUKH ONE TABLET BY MOUTH TWICE A DAY 11/16/2019 12/18/2019 Inactive hydrocodone 10 mg-acetaminophen 325 mg tablet RxNorm: 566143 1-2 Tablet(s) Oral three times a day as needed for pain 11/10/2019 12/09/2019 Inactive cyclobenzaprine 10 mg tablet RxNorm: 006983 TAKE ONE TA BLET BY MOUTH THREE TIMES A DAY NEEDED FOR MUSCLE SPASMS 10/23/2019 11/16/2019 Inactive duloxetine 60 mg capsule,delayed release RxNorm: 400894 1 Capsu le(s) Oral QD 10/17/2019 04/13/2020 Active celecoxib 200 mg capsule RxNorm: 172577 1 Capsule(s) Or al two times a day as needed for pain 10/17/2019 01/14/2020 Inactive Singulair 10 mg tablet RxNorm: 646812 1 Tablet(s) Oral QD 10/17/2019 04/14/2020 Active metoprolol tartrate 100 mg tablet RxNorm: 757904 1 Tabl et(s) Oral two times a day 10/17/2019 04/13/2020 Active clonidine HCl 0.1 mg tablet RxNorm: 767211 1 Tablet(s) Oral fou r times a day 10/17/2019 04/13/2020 Active Steglatro 15 mg tablet RxNorm: 5525806 1 Tablet(s) Oral QD 10/17/19 20 No Stop Date Active lisinopril 20 mg tablet RxNorm: 680003 1 Tablet(s) Oral QD 10/17/19 20 01/12/2020 Inactive gabapentin 300 mg capsule RxNorm: 543370 1 Capsule(s) O ral every night at bedtime 10/17/2019 01/15/2020 Inactive Klor-Con 8 mEq tablet,extended release RxNorm: 126013 1 Tablet(s) Oral two times a day 10/17/2019 11/15/2019 Inactive Januvia 100 mg tablet RxNorm: 577433 1 Tablet(s) Oral QD 10/17/2019 0 01/12/2020 Inactive Lipitor 10 mg tablet RxNorm: 106219 1 Tablet(s) Oral QD 10/17/2019 Inactive Glyxambi 25 mg-5 mg tablet RxNorm: 1655395 1 Tablet(s) Oral QD 01/202010/16/2019 Inactive Patient will bring in copay discount card as well Glyxambi 25 mg-5 mg tablet RxNorm: 1797328 1 Tablet(s) Oral QD 01/202010/14/2019 Inactive Patient will bring in copay discount card as well Keflex 500 mg capsule RxNorm: 780934 1 Capsule(s) Oral two time s a day 10/07/2019 10/14/2019 Inactive Premarin 1.25 mg tablet RxNorm: 023079 1 Tablet(s) Oral QD 09/30/1906/25/2020 Active hydrocodone 10 mg-acetaminophen 325 mg tablet RxNorm: 010786 1-2 Tablet(s) Oral three times a day as needed for pain 09/30/2019 09/30/2019 Inactive baclofen 10 mg tablet RxNorm: 867376 TAKE ONE TABLET BY MOUTH THREE TIMES A DAY NEEDED 09/19/2019 No Stop Date Active gabapentin 300 mg capsule RxNorm: 209591 TAKE ONE CAPSU LE BY MOUTH EVERY NIGHT AT BEDTIME 09/19/2019 10/16/2019 Inactive Klor-Con 8 mEq tablet,extended release RxNorm: 162625 T FARRUKH ONE TABLET BY MOUTH TWICE A DAY 1 Tablet(s) Oral two times a day 09/19/2019 10/16/2019 Renu ctive hydrocodone 10 mg-acetaminophen 325 mg tablet RxNorm: 967943 1-2 Tablet(s) Oral three times a day as needed for pain 09/19/2019 09/29/2019 Inactive duloxetine 60 mg capsule,delayed release RxNorm: 680421 TAKE ONE CAPSULE BY MOUTH DAILY 09/11/2019 10/16/2019 Inactive Lipitor 10 mg tablet RxNorm: 947489 TAKE ONE TABLET BY MOUTH AT BEDTIME 09/11/2019 10/16/2019 Inactive lisinopril 20 mg tablet RxNorm: 390012 TAKE ONE TABLET BY MOUTH DAILY .... THIS REPLACE 10MG TABLETS 09/11/2019 10/16/2019 Inactive triamterene 75 mg-hydrochlorothiazide 50 mg tablet RxNorm: 3 12695 TAKE ONE TABLET BY MOUTH DAILY 09/11/2019 12/28/2019 Inactive allopurinol 300 mg tablet RxNorm: 894465 TAKE ONE TABLET BY LOPEZ TH DAILY 09/11/2019 12/18/2019 Inactive celecoxib 200 mg capsule RxNorm: 564858 TAKE ONE CAPSUL E BY MOUTH TWICE A DAY NEEDED FOR PAIN 09/11/2019 10/16/2019 Inactive clonidine HCl 0.1 mg tablet RxNorm: 143285 TAKE ONE TAB LET BY MOUTH FOUR TIMES A DAY 09/11/2019 10/16/2019 Inactive doxepin 25 mg capsule RxNorm: 8421074 1 Capsule(s) Oral every night at bedtime as needed for sleep 08/21/2019 11/15/2019 Inactive hydrocodone 10 mg-acetaminophen 325 mg tablet RxNorm: 624934 1-2 Tablet(s) PO TID 08/12/2019 09/29/2019 Inactive as needed for pa in - Previous quantity #240, will start dosing for #180 in April 2011 per Doctor Td. Medrol (Dustin) 4 mg tablets in a dose pack RxNorm: 464034 Tablet(s) Oral As Directed 07/21/2019 09/29/2019 Inactive Premarin 1.25 mg tablet RxNorm: 878675 1 Tablet(s) Oral QD 07/02/2009/29/2019 Inactive hydrocodone 10 mg-acetaminophen 325 mg tablet RxNorm: 771944 1-2 Tablet(s) PO TID 07/01/2019 08/11/2019 Inactive as needed for pa in - Previous quantity #240, will start dosing for #180 in April 2011 per Doctor Td. gabapentin 300 mg capsule RxNorm: 092294 1 Capsule(s) PO QHS 201809/18/2019 Inactive celecoxib 200 mg capsule RxNorm: 786968 1 Capsule(s) Or al two times a day as needed for pain 06/27/2019 06/27/2019 Inactive doxepin 25 mg capsule RxNorm: 6682904 TAKE ONE CAPSULE B Y MOUTH EVERY NIGHT AT BEDTIME NEEDED FOR SLEEP 06/24/2019 08/20/2019 Inactive Singulair 10 mg tablet RxNorm: 846795 TAKE ONE TABLET BY MOUTH JOSÉ Y 06/24/2019 10/16/2019 Inactive furosemide 40 mg tablet RxNorm: 650365 TAKE ONE TABLET BY MOUTH EVERY MORNING NEEDED FOR EDEMA . TAKE WITH POTASSIUM 06/24/2019 01/12/2020 Inactive lisinopril 20 mg tablet RxNorm: 398211 TAKE ONE TABLET BY MOUTH DAILY .... THIS REPLACE 10MG TABLETS 06/24/2019 09/10/2019 Inactive nystatin-triamcinolone 100,000 unit/g-0.1 % topical cream Rx Norm: 8801670 1 Application Topical two times a day 06/12/2019 06/19/2019 Inactive apply BID for 1 week nystatin-triamcinolone 100,000 unit/g-0.1 % topical cream Rx Norm: 7544525 1 Application Topical two times a day 06/12/2019 06/11/2019 Inactive apply BID for 1 week hydrocodone 10 mg-acetaminophen 325 mg tablet RxNorm: 420281 1-2 Tablet(s) PO QID as needed for pain MUST LAST 30 DAYS 05/28/2019 06/26/2019 Inactiv e (Response to an electronic controlled substance refill request - RxReferenceNumber: [id number]) baclofen 20 mg tablet RxNorm: 199657 1 Tablet(s) PO TID as needed for muscle spasm 05/19/2019 05/27/2019 Inactive gabapentin 300 mg capsule RxNorm: 282594 1 Capsule(s) PO QHS 201805/27/2019 Inactive lisinopril 20 mg tablet RxNorm: 640553 1 Tablet(s) PO Q D TAKE ONE TABLET BY MOUTH DAILY, REPLACES 10 MG DOSE 05/19/2019 06/23/2019 Inactive doxepin 25 mg capsule RxNorm: 0843456 TAKE ONE CAPSULE B Y MOUTH EVERY NIGHT AT BEDTIME NEEDED FOR SLEEP 05/16/2019 06/14/2019 Inactive lisinopril 20 mg tablet RxNorm: 715538 TAKE ONE TABLET BY MOUTH DAILY, REPLACES 10 MG DOSE 05/16/2019 05/18/2019 Inactive Singulair 10 mg tablet RxNorm: 079408 TAKE ONE TABLET BY MOUTH JOSÉ Y 05/16/2019 06/14/2019 Inactive gabapentin 300 mg capsule RxNorm: 451425 1 Capsule(s) PO QHS 201805/04/2019 Inactive estropipate 1.5 mg tablet RxNorm: 706925 1 Tablet(s) PO QD 05/05/2005/27/2019 Inactive estropipate 1.5 mg tablet RxNorm: 702488 1 Tablet(s) PO QD 05/05/2005/04/2019 Inactive gabapentin 300 mg capsule RxNorm: 003531 1 Capsule(s) PO QHS 201805/18/2019 Inactive hydrocodone 10 mg-acetaminophen 325 mg tablet RxNorm: 543098 1-2 Tablet(s) PO QID as needed for pain MUST LAST 30 DAYS 04/25/2019 05/24/2019 Inactiv e (Response to an electronic controlled substance refill request - RxReferenceNumber: [id number]) cyclobenzaprine 10 mg tablet RxNorm: 321120 TAKE ONE TA BLET BY MOUTH THREE TIMES A DAY NEEDED FOR MUSCLE SPASMS 04/24/2019 05/18/2019 Inactive metoprolol tartrate 100 mg tablet RxNorm: 522883 TAKE O NE TABLET BY MOUTH TWICE A DAY 04/24/2019 10/16/2019 Inactive Lyrica 75 mg capsule RxNorm: 533079 1 Capsule(s) PO QHS 03/25/2019 Inactive duloxetine 60 mg capsule,delayed release RxNorm: 940661 TAKE ONE CAPSULE BY MOUTH DAILY 03/21/2019 05/19/2019 Inactive triamterene 75 mg-hydrochlorothiazide 50 mg tablet RxNorm: 3 39625 TAKE ONE TABLET BY MOUTH DAILY 03/21/2019 05/19/2019 Inactive Klor-Con 8 mEq tablet,extended release RxNorm: 535836 T FARRUKH ONE TABLET BY MOUTH TWICE A DAY 03/21/2019 09/18/2019 Inactive Lipitor 10 mg tablet RxNorm: 034669 TAKE ONE TABLET BY MOUTH AT BEDTIME 03/21/2019 09/10/2019 Inactive clonidine HCl 0.1 mg tablet RxNorm: 291225 TAKE ONE TAB LET BY MOUTH FOUR TIMES A DAY 03/21/2019 05/19/2019 Inactive allopurinol 300 mg tablet RxNorm: 000937 TAKE ONE TABLET BY LOPEZ TH DAILY 03/21/2019 05/19/2019 Inactive hydrocodone 10 mg-acetaminophen 325 mg tablet RxNorm: 707873 1-2 Tablet(s) PO QID as needed for pain MUST LAST 30 DAYS 02/28/2019 03/29/2019 Inactiv e (Response to an electronic controlled substance refill request - RxReferenceNumber: [id number]) furosemide 40 mg tablet RxNorm: 383707 TAKE ONE TABLET BY MOUTH EVERY MORNING NEEDED FOR EDEMA . TAKE WITH POTASSIUM 02/21/2019 03/22/2019 Inactive cyclobenzaprine 10 mg tablet RxNorm: 341623 TAKE ONE TA BLET BY MOUTH THREE TIMES A DAY NEEDED FOR MUSCLE SPASMS 02/21/2019 04/21/2019 Inactive lisinopril 20 mg tablet RxNorm: 644406 TAKE ONE TABLET BY MOUTH DAILY, REPLACES 10 MG DOSE 02/21/2019 05/15/2019 Inactive doxepin 25 mg capsule RxNorm: 3173011 TAKE ONE CAPSULE B Y MOUTH EVERY NIGHT AT BEDTIME NEEDED FOR SLEEP 02/21/2019 05/15/2019 Inactive nystatin 100,000 unit/gram topical cream RxNorm: 790114 APPLY TO AFFECTED AREA(S) TWO TIMES A DAY 02/21/2019 03/22/2019 Inactive estradiol 1 mg tablet RxNorm: 821534 2 Tablet(s) PO QD replaces premarin 01/22/2019 05/04/2019 Inactive lisinopril 20 mg tablet RxNorm: 281453 TAKE ONE TABLET BY MOUTH DAILY, REPLACES 10 MG DOSE 01/20/2019 02/18/2019 Inactive cyclobenzaprine 10 mg tablet RxNorm: 051725 TAKE ONE TA BLET BY MOUTH THREE TIMES A DAY NEEDED FOR MUSCLE SPASMS 01/20/2019 02/18/2019 Inactive metoprolol tartrate 100 mg tablet RxNorm: 665980 TAKE O NE TABLET BY MOUTH TWICE A DAY 01/20/2019 02/18/2019 Inactive cyclobenzaprine 10 mg tablet RxNorm: 639351 TAKE ONE TA BLET BY MOUTH THREE TIMES A DAY NEEDED FOR MUSCLE SPASMS 12/19/2018 01/17/2019 Inactive lisinopril 20 mg tablet RxNorm: 857142 TAKE ONE TABLET BY MOUTH DAILY, REPLACES 10 MG DOSE 12/19/2018 01/17/2019 Inactive duloxetine 60 mg capsule,delayed release RxNorm: 076433 TAKE ONE CAPSULE BY MOUTH DAILY 12/19/2018 01/17/2019 Inactive Lipitor 10 mg tablet RxNorm: 333002 TAKE ONE TABLET BY MOUTH AT BEDTIME 12/19/2018 01/17/2019 Inactive cyclobenzaprine 10 mg tablet RxNorm: 064661 1 Tablet(s) PO TID as needed for muscle spasm 11/19/2018 12/18/2018 Inactive Singulair 10 mg tablet RxNorm: 637011 1 Tablet(s) PO QD 11/19/2018 Inactive lisinopril 20 mg tablet RxNorm: 823672 TAKE ONE TABLET BY MOUTH DAILY, REPLACES 10 MG DOSE 11/15/2018 12/18/2018 Inactive hydrocodone 10 mg-acetaminophen 325 mg tablet RxNorm: 111797 1-2 Tablet(s) PO QID as needed for pain MUST LAST 30 DAYS 11/13/2018 12/12/2018 Inactiv e (Response to an electronic controlled substance refill request - RxReferenceNumber: [id number]) nystatin 100,000 unit/gram topical cream RxNorm: 807574 APPLY TO AFFECTED AREA(S) TWO TIMES A DAY 10/23/2018 11/06/2018 Inactive lisinopril 20 mg tablet RxNorm: 206886 1 Tablet(s) PO QD replac es 10mg dose 10/18/2018 11/14/2018 Inactive hydrocodone 10 mg-acetaminophen 325 mg tablet RxNorm: 884584 1-2 Tablet(s) QID as needed for pain MUST LAST 30 DAYS 10/08/2018 11/06/2018 Inactive (Response to an electronic controlled substance refill request - RxReferenceNumber: [id number]) lisinopril 10 mg tablet RxNorm: 964217 1 Tablet(s) PO QD 10/03/2018 0 01/21/2019 Inactive Celebrex 200 mg capsule RxNorm: 655735 TAKE ONE CAPSULE BY MOUT H TWICE A DAY 09/30/2018 05/04/2019 Inactive cyclobenzaprine 10 mg tablet RxNorm: 040571 TAKE ONE TA BLET BY MOUTH THREE TIMES A DAY NEEDED FOR MUSCLE SPASMS 09/30/2018 11/18/2018 Inactive doxepin 25 mg capsule RxNorm: 1734064 TAKE ONE CAPSULE B Y MOUTH EVERY NIGHT AT BEDTIME NEEDED 09/05/2018 10/16/2018 Inactive omeprazole 40 mg capsule,delayed release RxNorm: 940737 TAKE ONE CAPSULE BY MOUTH DAILY 09/05/2018 01/21/2019 Inactive furosemide 40 mg tablet RxNorm: 830399 TAKE ONE TABLET BY MOUTH EVERY MORNING NEEDED FOR EDEMA . TAKE WITH POTASSIUM 09/05/2018 11/03/2018 Inactive phentermine 37.5 mg tablet RxNorm: 369958 1 Tablet(s) PO QAM 201701/21/2019 Inactive doxepin 25 mg capsule RxNorm: 8029956 1 Capsule(s) PO QH S as needed for sleep TAKE ONE CAPSULE BY MOUTH EVERY NIGHT AT BEDTIME NEEDED 08/27/2018 09/04/2018 Inactive Keflex 500 mg capsule RxNorm: 253125 1 Capsule(s) PO TID 08/09/2018 1 10/19/2017 Inactive Diflucan 100 mg tablet RxNorm: 284719 1 Tablet(s) PO QD 08/09/2018 Inactive Premarin 1.25 mg tablet RxNorm: 524366 2 Tablet(s) PO QD 08/09/2018 0 05/04/2019 Inactive Zofran ODT 4 mg disintegrating tablet RxNorm: 133167 1 Tablet(s) PO Q4H as needed for nausea 08/09/2018 01/21/2019 Inactive metoprolol tartrate 100 mg tablet RxNorm: 351388 TAKE O NE TABLET BY MOUTH TWICE A DAY 2018 10/04/2018 Inactive doxepin 25 mg capsule RxNorm: 1592347 TAKE ONE CAPSULE B Y MOUTH EVERY NIGHT AT BEDTIME NEEDED 2018 08/26/2018 Inactive cyclobenzaprine 10 mg tablet RxNorm: 440908 TAKE ONE TA BLET BY MOUTH THREE TIMES A DAY NEEDED FOR MUSCLE SPASMS 2018 09/29/2018 Inactive hydrocodone 10 mg-acetaminophen 325 mg tablet RxNorm: 959912 1-2 Tablet(s) QID as needed for pain MUST LAST 30 DAYS 07/29/2018 08/27/2018 Inactive (Response to an electronic controlled substance refill request - RxReferenceNumber: [id number]) nystatin 100,000 unit/gram topical powder RxNorm: 117191 Applic ation TOP BID 07/22/2018 08/04/2018 Inactive doxepin 25 mg capsule RxNorm: 0839382 1 Capsule(s) PO QHS as needed 07/22/2018 08/05/2018 Inactive triamterene 75 mg-hydrochlorothiazide 50 mg tablet RxNorm: 3 99925 TAKE ONE TABLET BY MOUTH DAILY 07/05/2018 10/02/2018 Inactive duloxetine 60 mg capsule,delayed release RxNorm: 698803 TAKE ONE CAPSULE BY MOUTH DAILY 07/05/2018 09/02/2018 Inactive Klor-Con 8 mEq tablet,extended release RxNorm: 948714 T FARRUKH ONE TABLET BY MOUTH TWICE A DAY 07/05/2018 10/02/2018 Inactive Lipitor 10 mg tablet RxNorm: 773433 TAKE ONE TABLET BY MOUTH AT BEDTIME 07/05/2018 09/02/2018 Inactive allopurinol 300 mg tablet RxNorm: 595772 TAKE ONE TABLET BY LOPEZ TH DAILY 07/05/2018 10/02/2018 Inactive clonidine HCl 0.1 mg tablet RxNorm: 747126 TAKE ONE TAB LET BY MOUTH FOUR TIMES A DAY 07/05/2018 10/02/2018 Inactive hydrocodone 10 mg-acetaminophen 325 mg tablet RxNorm: 964967 1-2 Tablet(s) QID as needed for pain MUST LAST 30 DAYS 06/28/2018 07/27/2018 Inactive (Response to an electronic controlled substance refill request - RxReferenceNumber: [id number]) MediHoney (calcium alginate-honey) 4" X 5" bandage RxNorm: 1 Application TOP QD 06/17/2018 06/26/2018 Inactive honey-hydrocolloid dressing 4" X 5" RxNorm: 1 Application TOP QD 06/17/2018 07/16/2018 Inactive furosemide 40 mg tablet RxNorm: 254116 TAKE ONE TABLET BY MOUTH EVERY MORNING NEEDED FOR EDEMA . TAKE WITH POTASSIUM 06/10/2018 07/09/2018 Inactive This is a refill request. hydrocodone 10 mg-acetaminophen 325 mg tablet RxNorm: 050243 1-2 Tablet(s) QID as needed for pain MUST LAST 30 DAYS 05/30/2018 06/27/2018 Inactive (Response to an electronic controlled substance refill request - RxReferenceNumber: [id number]) acyclovir 800 mg tablet RxNorm: 661080 1 Tablet(s) PO 5x day 201705/22/2018 Inactive Premarin 1.25 mg tablet RxNorm: 769211 1-2 Tablet(s) PO QD 05/15/20 18 07/13/2018 Inactive cyclobenzaprine 10 mg tablet RxNorm: 140367 1 Tablet(s) PO TID as needed for muscle spasm 05/09/2018 05/08/2018 Inactive Medrol (Dustin) 4 mg tablets in a dose pack RxNorm: 729164 Tablet(s) PO As Directed 05/02/2018 06/16/2018 Inactive hydrocodone 10 mg-acetaminophen 325 mg tablet RxNorm: 603449 1-2 Tablet(s) QID as needed for pain MUST LAST 30 DAYS 04/30/2018 05/29/2018 Inactive (Response to an electronic controlled substance refill request - RxReferenceNumber: [id number]) duloxetine 60 mg capsule,delayed release RxNorm: 355417 TAKE ONE CAPSULE BY MOUTH DAILY 04/16/2018 05/15/2018 Inactive Celebrex 200 mg capsule RxNorm: 276443 TAKE ONE CAPSULE BY MOUT H TWICE A DAY 04/16/2018 06/14/2018 Inactive Singulair 10 mg tablet RxNorm: 472866 TAKE ONE TABLET BY MOUTH JOSÉ Y 04/16/2018 11/19/2018 Inactive Lipitor 10 mg tablet RxNorm: 084880 TAKE ONE TABLET BY MOUTH AT BEDTIME 04/16/2018 05/15/2018 Inactive hydrocodone 10 mg-acetaminophen 325 mg tablet RxNorm: 354131 1-2 Tablet(s) QID as needed for pain MUST LAST 30 DAYS 03/29/2018 04/27/2018 Inactive (Response to an electronic controlled substance refill request - RxReferenceNumber: [id number]) cyclobenzaprine 10 mg tablet RxNorm: 270177 1 Tablet(s) PO TID as needed for muscle spasm 03/18/2018 05/09/2018 Inactive omeprazole 40 mg capsule,delayed release RxNorm: 768965 1 Capsu le(s) PO QD 02/26/2018 08/24/2018 Inactive hydrocodone 10 mg-acetaminophen 325 mg tablet RxNorm: 625747 1-2 Tablet(s) QID as needed for pain MUST LAST 30 DAYS 02/26/2018 03/27/2018 Inactive (Response to an electronic controlled substance refill request - RxReferenceNumber: [id number]) metoprolol tartrate 100 mg tablet RxNorm: 902702 1 Tablet(s) PO BID 02/18/2018 08/05/2018 Inactive Lyrica 75 mg capsule RxNorm: 436191 1 Capsule(s) PO QHS 01/30/2018 Inactive phentermine 37.5 mg tablet RxNorm: 975682 1 Tablet(s) PO QAM 201706/16/2018 Inactive hydrocodone 10 mg-acetaminophen 325 mg tablet RxNorm: 334967 1-2 Tablet(s) QID as needed for pain MUST LAST 30 DAYS 01/29/2018 02/25/2018 Inactive (Response to an electronic controlled substance refill request - RxReferenceNumber: [id number]) Klor-Con 8 mEq tablet,extended release RxNorm: 114400 1 Tablet( s) PO BID 01/14/2018 07/04/2018 Inactive allopurinol 300 mg tablet RxNorm: 560336 1 Tablet(s) PO QD 01/15/2007/04/2018 Inactive Lipitor 10 mg tablet RxNorm: 373501 1 Tablet(s) PO QHS 01/14/201812/2017 Inactive triamterene 75 mg-hydrochlorothiazide 50 mg tablet RxNorm: 3 86881 1 Tablet(s) PO QD 01/14/2018 07/04/2018 Inactive hydrocodone 10 mg-acetaminophen 325 mg tablet RxNorm: 588105 1-2 Tablet(s) QID as needed for pain MUST LAST 30 DAYS 12/27/2017 01/25/2018 Inactive (Response to an electronic controlled substance refill request - RxReferenceNumber: [id number]) Onglyza 5 mg tablet RxNorm: 784015 1 Tablet(s) PO QD 12/18/201701/29 Inactive metformin 500 mg tablet RxNorm: 872082 1 Tablet(s) PO BID 12/11/2017 12/10/2017 Inactive metformin 500 mg tablet RxNorm: 993067 1 Tablet(s) PO BID 12/11/2017 12/17/2017 Inactive furosemide 40 mg tablet RxNorm: 711967 1 Tablet(s) PO Q AM prn edema--take with potassium 12/11/2017 06/08/2018 Inactive cyclobenzaprine 10 mg tablet RxNorm: 424920 1 Tablet(s) PO TID as needed for muscle spasm 12/11/2017 03/18/2018 Inactive hydrocodone 10 mg-acetaminophen 325 mg tablet RxNorm: 356868 1-2 Tablet(s) QID as needed for pain MUST LAST 30 DAYS 10/23/2017 11/21/2017 Inactive (Response to an electronic controlled substance refill request - RxReferenceNumber: [id number]) Lipitor 10 mg tablet RxNorm: 984133 1 Tablet(s) PO QHS 10/16/201703/2018 Inactive cyclobenzaprine 10 mg tablet RxNorm: 069145 1 Tablet(s) PO TID as needed for muscle spasm 10/09/2017 12/10/2017 Inactive hydroxyzine HCl 25 mg tablet RxNorm: 579256 1 Tablet(s) PO BID as needed for anxiety 09/20/2017 01/29/2018 Inactive Effexor XR 75 mg capsule,extended release RxNorm: 233722 1 Caps ule(s) PO QD 09/20/2017 01/29/2018 Inactive metoprolol tartrate 100 mg tablet RxNorm: 649075 1 Tablet(s) PO BID 08/20/2017 02/18/2018 Inactive baclofen 20 mg tablet RxNorm: 646110 1 Tablet(s) PO TID as needed for muscle spasm 08/20/2017 01/21/2019 Inactive clonidine HCl 0.1 mg tablet RxNorm: 055892 1 Tablet(s) PO QID 08/2005/16/2018 Inactive Seroquel 25 mg tablet RxNorm: 376119 1 Tablet(s) PO QHS 08/17/2017 Inactive Seroquel 25 mg tablet RxNorm: 271020 1 Tablet(s) PO QHS 08/17/2017 Inactive Diflucan 100 mg tablet RxNorm: 536752 TAKE ONE TABLET BY MOUTH JOSÉ Y 07/25/2017 08/07/2017 Inactive hydrocodone 10 mg-acetaminophen 325 mg tablet RxNorm: 479135 1-2 Tablet(s) QID as needed for pain MUST LAST 30 DAYS 07/19/2017 08/17/2017 Inactive (Response to an electronic controlled substance refill request - RxReferenceNumber: [id number]) clindamycin 300 mg capsule RxNorm: 856499 1 Capsule(s) PO TID 07/1907/28/2017 Inactive clotrimazole-betamethasone 1 %-0.05 % topical cream RxNorm: 454768 Application TOP BID to elbow rash 07/19/2017 06/16/2018 Inactive Singulair 10 mg tablet RxNorm: 829123 Tablet(s) TAKE ONE TABLET BY MOUTH DAILY 07/18/2017 04/13/2018 Inactive triamterene 75 mg-hydrochlorothiazide 50 mg tablet RxNorm: 3 72085 1 Tablet(s) PO QD 07/18/2017 01/14/2018 Inactive Celebrex 200 mg capsule RxNorm: 979422 Capsule(s) TAKE ONE CAPSULE BY MOUTH TWICE A DAY 07/18/2017 10/15/2017 Inactive hydrocodone 10 mg-acetaminophen 325 mg tablet RxNorm: 971845 1-2 Tablet(s) QID as needed for pain MUST LAST 30 DAYS 06/19/2017 07/18/2017 Inactive (Response to an electronic controlled substance refill request - RxReferenceNumber: [id number]) hydrocodone 10 mg-acetaminophen 325 mg tablet RxNorm: 673910 1-2 Tablet(s) QID as needed for pain MUST LAST 30 DAYS 06/19/2017 06/18/2017 Inactive (Response to an electronic controlled substance refill request - RxReferenceNumber: [id number]) baclofen 20 mg tablet RxNorm: 824671 1 Tablet(s) PO TID as needed for muscle spasm 06/18/2017 08/20/2017 Inactive Medrol (Dustin) 4 mg tablets in a dose pack RxNorm: 323074 Tablet(s) PO As Directed 06/05/2017 07/18/2017 Inactive omeprazole 40 mg capsule,delayed release RxNorm: 707889 1 Capsu le(s) PO QD 04/20/2017 10/16/2017 Inactive Premarin 1.25 mg tablet RxNorm: 976457 1-2 Tablet(s) PO QD 04/11/20 17 05/15/2018 Inactive duloxetine 60 mg capsule,delayed release RxNorm: 953300 1 Capsu le(s) PO QD 04/11/2017 09/19/2017 Inactive furosemide 40 mg tablet RxNorm: 549382 1 Tablet(s) PO Q AM prn edema--take with potassium 04/11/2017 12/11/2017 Inactive Klor-Con 8 mEq tablet,extended release RxNorm: 408456 1 Tablet( s) PO BID 04/11/2017 01/14/2018 Inactive Lipitor 10 mg tablet RxNorm: 360978 1 Tablet(s) PO QHS 04/11/201702/2018 Inactive amlodipine 5 mg-benazepril 20 mg capsule RxNorm: 490601 1 Capsu le(s) PO QD 04/11/2017 01/29/2018 Inactive allopurinol 300 mg tablet RxNorm: 701608 1 Tablet(s) PO QD 04/11/20 17 01/14/2018 Inactive clonidine HCl 0.1 mg tablet RxNorm: 162217 1 Tablet(s) PO QID 04/0508/19/2017 Inactive baclofen 20 mg tablet RxNorm: 901951 1 Tablet(s) PO TID as needed for muscle spasm 04/02/2017 06/18/2017 Inactive Premarin 1.25 mg tablet RxNorm: 621510 1-2 Tablet(s) PO QD 03/20/20 17 04/10/2017 Inactive hydrocodone 10 mg-acetaminophen 325 mg tablet RxNorm: 739260 1-2 Tablet(s) QID as needed for pain MUST LAST 30 DAYS 03/14/2017 01/21/2019 Inactive (Response to an electronic controlled substance refill request - RxReferenceNumber: [id number]) metoprolol tartrate 100 mg tablet RxNorm: 925050 1 Tablet(s) PO BID 02/12/2017 08/20/2017 Inactive hydrocodone 10 mg-acetaminophen 325 mg tablet RxNorm: 607904 1-2 Tablet(s) QID as needed for pain MUST LAST 30 DAYS 02/08/2017 03/09/2017 Inactive (Response to an electronic controlled substance refill request - RxReferenceNumber: [id number]) metoprolol tartrate 100 mg tablet RxNorm: 662048 TAKE O NE TABLET BY MOUTH TWICE A DAY 01/11/2017 02/12/2017 Inactive metoprolol tartrate 100 mg tablet RxNorm: 472626 1 Tablet(s) PO BID 12/18/2016 12/17/2016 Inactive metoprolol tartrate 100 mg tablet RxNorm: 953816 1 Tablet(s) PO BID 12/18/2016 01/10/2017 Inactive furosemide 40 mg tablet RxNorm: 383198 1 Tablet(s) PO Q AM prn edema--take with potassium 12/13/2016 02/10/2017 Inactive amitriptyline 100 mg tablet RxNorm: 480331 1 Tablet(s) PO QHS 11/2812/12/2016 Inactive baclofen 20 mg tablet RxNorm: 141729 1 Tablet(s) PO TID as needed for muscle spasm 11/14/2016 04/01/2017 Inactive triamterene 75 mg-hydrochlorothiazide 50 mg tablet RxNorm: 3 90216 1 Tablet(s) PO QD 11/14/2016 11/13/2016 Inactive metolazone 2.5 mg tablet RxNorm: 019247 TAKE ONE TABLET BY MOUTH DAILY NEEDED FOR EDEMA 11/14/2016 12/12/2016 Inactive triamterene 75 mg-hydrochlorothiazide 50 mg tablet RxNorm: 3 77564 1 Tablet(s) PO QD 11/14/2016 07/18/2017 Inactive amitriptyline 50 mg tablet RxNorm: 552433 TAKE ONE TABL ET BY MOUTH AT BEDTIME NEEDED FOR SLEEP 11/14/2016 11/27/2016 Inactive Cymbalta 60 mg capsule,delayed release RxNorm: 080645 1 Capsule (s) PO QHS 11/14/2016 12/12/2016 Inactive clonidine HCl 0.1 mg tablet RxNorm: 912219 1 Tablet(s) PO QID 11/1304/04/2017 Inactive amitriptyline 50 mg tablet RxNorm: 601890 1 Tablet(s) P O QHS as needed for sleep 11/01/2016 11/27/2016 Inactive duloxetine 60 mg capsule,delayed release RxNorm: 844058 TAKE ONE CAPSULE BY MOUTH DAILY 10/20/2016 01/17/2017 Inactive allopurinol 300 mg tablet RxNorm: 328390 TAKE ONE TABLET BY LOPEZ TH DAILY 10/20/2016 01/16/2017 Inactive Lyrica 75 mg capsule RxNorm: 931703 TAKE ONE CAPSULE BY MOUTH EVERY NIGHT AT BEDTIME 10/20/2016 12/10/2016 Inactive Klor-Con 8 mEq tablet,extended release RxNorm: 844368 T FARRUKH ONE TABLET BY MOUTH TWICE A DAY 10/20/2016 01/17/2017 Inactive Celebrex 200 mg capsule RxNorm: 663909 TAKE ONE CAPSULE BY MOUT H TWICE A DAY 10/20/2016 07/18/2017 Inactive Bystolic 10 mg tablet RxNorm: 347350 TAKE ONE TABLET BY MOUTH EVERY NIGHT AT BEDTIME 10/20/2016 12/17/2016 Inactive amlodipine 5 mg-benazepril 20 mg capsule RxNorm: 483721 TAKE ONE CAPSULE BY MOUTH EVERY NIGHT AT BEDTIME -- TO REPLACE AMLODOPINE 10/20/20162016 Inactive Lipitor 10 mg tablet RxNorm: 836488 TAKE ONE TABLET BY MOUTH EVERY NIGHT AT BEDTIME 10/20/2016 01/17/2017 Inactive alprazolam 0.5 mg tablet RxNorm: 275840 3 Tablet(s) PO QHS as needed for sleep/anxiety 09/20/2016 10/31/2016 Inactive Tamiflu 75 mg capsule RxNorm: 230099 1 Capsule(s) PO QD 09/19/2016 Inactive Lyrica 75 mg capsule RxNorm: 001184 1 Capsule(s) PO QHS 09/19/2016 Inactive prednisone 20 mg tablet RxNorm: 192710 1 Tablet(s) PO QD 08/10/2016 1 10/17/2015 Inactive doxycycline hyclate 100 mg capsule RxNorm: 2217350 1 Capsule(s) PO BID 08/10/2016 08/19/2016 Inactive Medrol (Dustin) 4 mg tablets in a dose pack RxNorm: 823676 Tablet(s) PO As Directed 07/31/2016 08/22/2016 Inactive Singulair 10 mg tablet RxNorm: 733258 TAKE ONE TABLET BY MOUTH JOSÉ Y 07/27/2016 07/18/2017 Inactive hydrocodone 10 mg-acetaminophen 325 mg tablet RxNorm: 937028 1-2 Tablet(s) QID as needed for pain MUST LAST 30 DAYS 07/26/2016 08/24/2016 Inactive (Response to an electronic controlled substance refill request - RxReferenceNumber: [id number]) alprazolam 0.5 mg tablet RxNorm: 343943 3 Tablet(s) PO QHS as needed for anxiety or sleep 07/26/2016 09/20/2016 Inactive clindamycin 300 mg capsule RxNorm: 397083 1 Capsule(s) PO TID 07/2007/29/2016 Inactive Diflucan 100 mg tablet RxNorm: 377850 1 Tablet(s) PO QD 07/20/2016 Inactive Levaquin 500 mg tablet RxNorm: 614711 1 Tablet(s) PO QD 07/17/2016 Inactive Levaquin 500 mg tablet RxNorm: 470857 1 Tablet(s) PO QD 07/10/2016 Inactive Levaquin 500 mg tablet RxNorm: 145299 1 Tablet(s) PO QD 07/10/2016 Inactive mupirocin 2 % topical ointment RxNorm: 633566 TOP Apply topically to affected areas twice daily 07/06/2016 09/18/2016 Inactive Singulair 10 mg tablet RxNorm: 821429 TAKE ONE TABLET BY MOUTH JOSÉ Y 06/21/2016 01/21/2019 Inactive alprazolam 0.5 mg tablet RxNorm: 845687 TAKE THREE TABL ETS BY MOUTH AT BEDTIME NEEDED FOR SLEEP OR STRESS 05/22/2016 06/20/2016 Inactive triamterene 75 mg-hydrochlorothiazide 50 mg tablet RxNorm: 3 95367 1 Tablet(s) PO QD 04/26/2016 01/12/2020 Inactive Premarin 1.25 mg tablet RxNorm: 469853 1-2 Tablet(s) PO QD 04/26/20 16 03/20/2017 Inactive Klor-Con 8 mEq tablet,extended release RxNorm: 990591 1 Tablet( s) PO BID 04/26/2016 10/19/2016 Inactive Celebrex 200 mg capsule RxNorm: 090658 1 Capsule(s) PO BID TAKE ONE CAPSULE BY MOUTH EVERY DAY 04/26/2016 10/19/2016 Inactive Lipitor 10 mg tablet RxNorm: 223575 1 Tablet(s) PO QHS 04/26/201605/2017 Inactive allopurinol 300 mg tablet RxNorm: 612626 1 Tablet(s) PO QD TAKE ONE TABLET BY MOUTH EVERY DAY 04/26/2016 10/19/2016 Inactive amlodipine 5 mg-benazepril 20 mg capsule RxNorm: 182564 1 Capsule(s) PO QHS replaces amlodopine 04/26/2016 10/19/2016 Inactive duloxetine 60 mg capsule,delayed release RxNorm: 129654 1 Capsu le(s) PO QD 04/26/2016 10/19/2016 Inactive Bystolic 10 mg tablet RxNorm: 017251 1 Tablet(s) PO QHS 04/26/2016 Inactive Singulair 10 mg tablet RxNorm: 872162 1 Tablet(s) PO QD TAKE ONE TABLET BY MOUTH DAILY 04/26/2016 06/20/2016 Inactive clonidine HCl 0.1 mg tablet RxNorm: 326179 1 Tablet(s) PO QID 04/2610/22/2016 Inactive hydrocodone 10 mg-acetaminophen 325 mg tablet RxNorm: 699441 1-2 Tablet(s) QID as needed for pain TAKE ONE TO TWO TABLETS BY MOUTH FOUR TIMES A DAY . MUST LAST 30 DAYS 03/31/2016 04/29/2016 Inactive (Response to an electronic controlled substance refill request - RxReferenceNumber: [id number]) Klor-Con 8 mEq tablet,extended release RxNorm: 606141 T FARRUKH ONE TABLET BY MOUTH TWICE A DAY 03/24/2016 09/29/2019 Inactive prednisone 20 mg tablet RxNorm: 883871 1 Tablet(s) PO QD 03/09/2016 0 03/08/2016 Inactive prednisone 20 mg tablet RxNorm: 324828 1 Tablet(s) PO QD 03/09/2016 0 03/13/2016 Inactive alprazolam 0.5 mg tablet RxNorm: 522913 3 Tablet(s) PO QHS as needed for sleep/stress 03/02/2016 01/21/2019 Inactive mupirocin 2 % topical ointment RxNorm: 885105 TOP twice daily to affected areas of face and neck 02/21/2016 04/25/2016 Inactive clonidine HCl 0.1 mg tablet RxNorm: 996846 TAKE ONE TAB LET BY MOUTH FOUR TIMES A DAY 02/15/2016 09/29/2019 Inactive clonidine HCl 0.1 mg tablet RxNorm: 998276 1 Tablet(s) PO QID 02/1404/25/2016 Inactive Premarin 1.25 mg tablet RxNorm: 930889 1-2 Tablet(s) PO QD 02/15/20 16 03/15/2016 Inactive Klor-Con 8 mEq tablet,extended release RxNorm: 814583 T FARRUKH ONE TABLET BY MOUTH TWICE A DAY 02/15/2016 03/15/2016 Inactive potassium chloride ER 20 mEq tablet,extended release(part/cr yst) RxNorm: 328164 2 Tablet(s) PO BID 02/15/2016 03/15/2016 Inactive Macrobid 100 mg capsule RxNorm: 971169 1 Capsule(s) PO BID 01/24/20 16 01/30/2016 Inactive prednisone 20 mg tablet RxNorm: 480717 Take 3tabs PO QD x 2 days, then 2 tabs PO QD x 2 days, then 1 tab PO QD x 2 days, then 1/2 tab PO QDy x 2 days 12/23/2015 04/25/2016 Inactive Klor-Con 8 mEq tablet,extended release RxNorm: 467127 T FARRUKH ONE TABLET BY MOUTH TWICE A DAY 12/20/2015 02/14/2016 Inactive alprazolam 1 mg tablet RxNorm: 153633 1 1/2 Tablet(s) PO QHS 201501/23/2016 Inactive nystatin 100,000 unit/gram topical cream RxNorm: 580327 APPLY TO AFFECTED AREA(S) TWO TIMES A DAY 11/30/2015 12/14/2015 Inactive Singulair 10 mg tablet RxNorm: 364613 TAKE ONE TABLET BY MOUTH JOSÉ Y 11/18/2015 04/25/2016 Inactive allopurinol 300 mg tablet RxNorm: 244098 1 Tablet(s) PO QD TAKE ONE TABLET BY MOUTH EVERY DAY 10/26/2015 04/22/2016 Inactive Singulair 10 mg tablet RxNorm: 793117 TAKE ONE TABLET BY MOUTH JOSÉ Y 10/26/2015 11/17/2015 Inactive duloxetine 60 mg capsule,delayed release RxNorm: 265140 1 Capsu le(s) PO QD 10/26/2015 04/22/2016 Inactive triamterene 75 mg-hydrochlorothiazide 50 mg tablet RxNorm: 3 67490 1 Tablet(s) PO QD 10/26/2015 11/14/2016 Inactive potassium chloride ER 20 mEq tablet,extended release(part/cr yst) RxNorm: 012274 2 Tablet(s) PO BID 10/26/2015 02/14/2016 Inactive Lipitor 10 mg tablet RxNorm: 754086 1 Tablet(s) PO QHS 10/26/2015 Inactive amlodipine 5 mg-benazepril 20 mg capsule RxNorm: 625319 1 Capsule(s) PO QHS replaces amlodopine 10/26/2015 04/22/2016 Inactive Bystolic 10 mg tablet RxNorm: 686341 1 Tablet(s) PO QHS 10/26/2015 Inactive amlodipine 5 mg-benazepril 20 mg capsule RxNorm: 033974 1 Capsule(s) PO QHS replaces amlodopine 10/06/2015 10/25/2015 Inactive amlodipine 5 mg tablet RxNorm: 494110 1 Tablet(s) PO QHS 09/30/2015 0 04/25/2016 Inactive metolazone 2.5 mg tablet RxNorm: 061486 TAKE ONE TABLET BY MOUTH DAILY NEEDED FOR EDEMA 09/30/2015 01/21/2019 Inactive duloxetine 60 mg capsule,delayed release RxNorm: 200546 1 Capsu le(s) PO QD 09/30/2015 10/25/2015 Inactive cephalexin 500 mg capsule RxNorm: 500764 1 Capsule(s) PO BID 201509/23/2015 Inactive mupirocin 2 % topical ointment RxNorm: 150211 TOP twice daily to affected areas of face and neck 09/14/2015 02/20/2016 Inactive baclofen 20 mg tablet RxNorm: 911088 1 Tablet(s) PO TID as needed for muscle spasm 09/01/2015 11/14/2016 Inactive clonidine HCl 0.1 mg tablet RxNorm: 302769 1 Tablet(s) PO QID 09/0102/14/2016 Inactive alprazolam 1 mg tablet RxNorm: 915058 1 1/2 Tablet(s) PO QHS 201409/09/2015 Inactive baclofen 20 mg tablet RxNorm: 359949 1 Tablet(s) PO TID as needed for muscle spasm 07/23/2015 09/01/2015 Inactive omeprazole 40 mg capsule,delayed release RxNorm: 134998 1 Capsu le(s) PO QD 07/23/2015 04/25/2016 Inactive alprazolam 1 mg tablet RxNorm: 228549 1 1/2 Tablet(s) PO QHS 201408/10/2015 Inactive Bystolic 10 mg tablet RxNorm: 652047 1 Tablet(s) PO BID 06/24/2015 Inactive allopurinol 300 mg tablet RxNorm: 560761 1 Tablet(s) PO QD TAKE ONE TABLET BY MOUTH EVERY DAY 06/23/2015 10/20/2015 Inactive alprazolam 1 mg tablet RxNorm: 605511 1 1/2 Tablet(s) PO QHS 201407/06/2015 Inactive clonidine HCl 0.1 mg tablet RxNorm: 403723 1 Tablet(s) PO QID 06/0209/01/2015 Inactive clonidine HCl 0.1 mg tablet RxNorm: 659089 1 Tablet(s) PO QID 06/0206/01/2015 Inactive Cymbalta 60 mg capsule,delayed release RxNorm: 279311 1 Capsule (s) PO QHS 06/02/2015 08/30/2015 Inactive Cymbalta 60 mg capsule,delayed release RxNorm: 118011 1 Capsule (s) PO QHS 06/02/2015 06/01/2015 Inactive clonidine HCl 0.1 mg tablet RxNorm: 616115 1 Tablet(s) PO TID 05/3106/01/2015 Inactive replaces 0.2mg dose metolazone 2.5 mg tablet RxNorm: 307163 TAKE ONE TABLET BY MOUTH DAILY NEEDED FOR EDEMA 05/21/2015 06/19/2015 Inactive Singulair 10 mg tablet RxNorm: 941552 TAKE ONE TABLET BY MOUTH JOSÉ Y 05/21/2015 10/17/2015 Inactive Cymbalta 30 mg capsule,delayed release RxNorm: 771280 1 Capsule (s) PO QHS 05/20/2015 11/14/2016 Inactive betamethasone valerate 0.1 % topical cream RxNorm: 727985 Appli cation TOP BID 05/10/2015 04/25/2016 Inactive Bactroban 2 % topical ointment RxNorm: 151099 Application TOP BID 0 05/10/2015 06/20/2015 Inactive baclofen 20 mg tablet RxNorm: 946527 1 Tablet(s) PO TID as needed 0 04/26/2015 07/23/2015 Inactive Lipitor 10 mg tablet RxNorm: 971981 1 Tablet(s) PO QHS 04/26/201508/2016 Inactive clonidine HCl 0.1 mg tablet RxNorm: 291180 1 Tablet(s) PO TID 04/2605/30/2015 Inactive replaces 0.2mg dose Klor-Con 8 mEq tablet,extended release RxNorm: 943368 1 Tablet( s) PO BID 04/26/2015 04/25/2016 Inactive metolazone 2.5 mg tablet RxNorm: 193581 1 Tablet(s) PO QD as ne eded for edema 04/26/2015 04/25/2015 Inactive triamterene 75 mg-hydrochlorothiazide 50 mg tablet RxNorm: 3 27532 1 Tablet(s) PO QD 04/26/2015 10/22/2015 Inactive Premarin 1.25 mg tablet RxNorm: 981680 1-2 Tablet(s) PO QD 04/26/20 15 10/22/2015 Inactive Bystolic 10 mg tablet RxNorm: 045709 1 Tablet(s) PO QAM TAKE ONE TABLET BY MOUTH EVERY MORNING 04/23/2015 06/23/2015 Inactive clonidine HCl 0.1 mg tablet RxNorm: 099456 1 Tablet(s) PO TID 03/2304/25/2015 Inactive replaces 0.2mg dose nystatin 100,000 unit/gram topical cream RxNorm: 008707 Applica tion TOP BID 03/23/2015 06/20/2015 Inactive baclofen 20 mg tablet RxNorm: 627185 1 Tablet(s) PO TID as needed 0 03/23/2015 04/25/2015 Inactive Premarin 1.25 mg tablet RxNorm: 782890 1-2 Tablet(s) PO QD 03/23/20 15 04/25/2015 Inactive Klor-Con 8 mEq tablet,extended release RxNorm: 338487 1 Tablet( s) PO BID 03/23/2015 04/25/2015 Inactive cefdinir 300 mg capsule RxNorm: 020689 2 Capsule(s) PO QD 03/16/2015 03/25/2015 Inactive baclofen 20 mg tablet RxNorm: 155268 1 Tablet(s) PO TID as needed 0 03/02/2015 03/22/2015 Inactive allopurinol 300 mg tablet RxNorm: 173587 1 Tablet(s) PO QD TAKE ONE TABLET BY MOUTH EVERY DAY 02/22/2015 05/22/2015 Inactive Klor-Con M20 mEq tablet,extended release RxNorm: 194521 2 Tablet(s) PO BID to use with lasix 02/22/2015 06/20/2015 Inactive clonidine HCl 0.1 mg tablet RxNorm: 872020 1 Tablet(s) PO TID 02/1903/22/2015 Inactive replaces 0.2mg dose Lipitor 10 mg tablet RxNorm: 386275 1 Tablet(s) PO QHS 01/20/201506/2015 Inactive Lipitor 10 mg tablet RxNorm: 312709 1 Tablet(s) PO QHS 01/20/2015 Inactive Singulair 10 mg tablet RxNorm: 458758 1 Tablet(s) PO QD TAKE ONE TABLET BY MOUTH EVERY DAY 11/20/2014 05/18/2015 Inactive Lipitor 10 mg tablet RxNorm: 880265 1 Tablet(s) PO QHS 11/20/201408/2015 Inactive allopurinol 300 mg tablet RxNorm: 875052 1 Tablet(s) PO QD TAKE ONE TABLET BY MOUTH EVERY DAY 11/20/2014 02/16/2015 Inactive Bystolic 10 mg tablet RxNorm: 191049 1 Tablet(s) PO QAM TAKE ONE TABLET BY MOUTH EVERY MORNING 11/20/2014 04/22/2015 Inactive Klor-Con 8 mEq tablet,extended release RxNorm: 424488 1 Tablet( s) PO BID 11/20/2014 02/17/2015 Inactive baclofen 20 mg tablet RxNorm: 416037 1 Tablet(s) PO TID as needed 0 11/20/2014 01/21/2019 Inactive baclofen 20 mg tablet RxNorm: 306800 1 Tablet(s) PO TID as needed 0 10/27/2014 11/19/2014 Inactive baclofen 20 mg tablet RxNorm: 238677 1 Tablet(s) PO TID as needed 0 10/26/2014 03/01/2015 Inactive allopurinol 300 mg tablet RxNorm: 227955 1 Tablet(s) PO QD TAKE ONE TABLET BY MOUTH EVERY DAY 10/26/2014 11/20/2014 Inactive Bystolic 10 mg tablet RxNorm: 562438 1 Tablet(s) PO QAM TAKE ONE TABLET BY MOUTH EVERY MORNING 10/26/2014 11/20/2014 Inactive clonidine HCl 0.1 mg tablet RxNorm: 276907 1 Tablet(s) PO TID 09/2805/27/2019 Inactive replaces 0.2mg dose clonidine HCl 0.1 mg tablet RxNorm: 878694 1 Tablet(s) PO TID 09/2802/18/2015 Inactive replaces 0.2mg dose baclofen 20 mg tablet RxNorm: 178497 1 Tablet(s) PO TID as needed 1 11/01/2013 08/30/2014 Inactive Lipitor 10 mg tablet RxNorm: 269841 1 Tablet(s) PO QHS 08/31/2014 Inactive baclofen 20 mg tablet RxNorm: 116585 1 Tablet(s) PO TID as needed 1 11/01/2013 10/26/2014 Inactive triamterene 75 mg-hydrochlorothiazide 50 mg tablet RxNorm: 3 41901 1 Tablet(s) PO QD 08/31/2014 02/26/2015 Inactive Klor-Con 8 mEq tablet,extended release RxNorm: 776188 1 Tablet( s) PO BID 08/31/2014 11/20/2014 Inactive baclofen 20 mg tablet RxNorm: 739044 1 Tablet(s) PO TID as needed 1 09/30/2013 10/25/2014 Inactive baclofen 20 mg tablet RxNorm: 143835 1 Tablet(s) PO TID as needed 1 09/30/2013 08/31/2014 Inactive omeprazole 40 mg capsule,delayed release RxNorm: 227308 1 Capsu le(s) PO QD 07/21/2014 07/23/2015 Inactive Flonase 50 mcg/actuation nasal spray,suspension RxNorm: 8963 23 1 [place] NASAL BID 07/15/2014 04/09/2017 Inactive hydrocodone 10 mg-acetaminophen 325 mg tablet RxNorm: 292572 1-2 Tablet(s) QID as needed for pain TAKE ONE TO TWO TABLETS BY MOUTH FOUR TIMES A DAY . MUST LAST 30 DAYS 06/30/2014 07/27/2014 Inactive (Response to an electronic controlled substance refill request - RxReferenceNumber: [id number]) baclofen 20 mg tablet RxNorm: 311069 1 Tablet(s) PO TID as needed 1 07/31/2014 Inactive Singulair 10 mg tablet RxNorm: 815802 1 Tablet(s) PO QD TAKE ONE TABLET BY MOUTH EVERY DAY 05/25/2014 11/20/2014 Inactive Bystolic 10 mg tablet RxNorm: 904361 TAKE ONE TABLET BY MOUTH E VERY MORNING 05/25/2014 09/21/2014 Inactive allopurinol 300 mg tablet RxNorm: 924792 1 Tablet(s) PO QD TAKE ONE TABLET BY MOUTH EVERY DAY 05/25/2014 10/21/2014 Inactive baclofen 20 mg tablet RxNorm: 850475 1 Tablet(s) PO TID as needed 0 05/25/2014 06/29/2014 Inactive allopurinol 300 mg tablet RxNorm: 917432 TAKE ONE TABLET BY LOPEZ TH EVERY DAY 05/25/2014 09/21/2014 Inactive Singulair 10 mg tablet RxNorm: 733476 1 Tablet(s) PO QD TAKE ONE TABLET BY MOUTH EVERY DAY 05/25/2014 05/24/2014 Inactive Bystolic 10 mg tablet RxNorm: 596312 1 Tablet(s) PO QAM TAKE ONE TABLET BY MOUTH EVERY MORNING 05/25/2014 10/21/2014 Inactive metolazone 2.5 mg tablet RxNorm: 032026 1 Tablet(s) PO QD as ne eded for edema 05/18/2014 04/25/2015 Inactive Lasix 40 mg tablet RxNorm: 244250 1 Tablet(s) PO QAM s hould take potassium supplementation with this medication 05/14/2014 05/17/2014 Inactive hydrocodone 10 mg-acetaminophen 325 mg tablet RxNorm: 305186 1-2 Tablet(s) QID as needed for pain TAKE ONE TO TWO TABLETS BY MOUTH FOUR TIMES A DAY . MUST LAST 30 DAYS 05/07/2014 06/05/2014 Inactive (Response to an electronic controlled substance refill request - RxReferenceNumber: [id number]) alprazolam 0.5 mg tablet RxNorm: 199993 TAKE ONE TABLET BY MOUTH TWICE A DAY , MUST LAST 30 DAYS 05/07/2014 05/22/2016 Inactive (Response to a n electronic controlled substance refill request - RxReferenceNumber: [id number]) diclofenac sodium 75 mg tablet,delayed release RxNorm: 98361 6 1 Tablet(s) PO BID for pain 04/24/2014 07/20/2014 Inactive Celebrex 200 mg capsule RxNorm: 457127 TAKE ONE CAPSULE BY MOUT H EVERY DAY 04/24/2014 07/20/2014 Inactive alprazolam 0.5 mg tablet RxNorm: 385911 TAKE ONE TABLET BY MOUTH TWICE A DAY , MUST LAST 30 DAYS 03/24/2014 04/22/2014 Inactive (Response to a n electronic controlled substance refill request - RxReferenceNumber: [id number]) diclofenac sodium 75 mg tablet,delayed release RxNorm: 07679 6 1 Tablet(s) PO BID for pain 03/24/2014 04/24/2014 Inactive clonidine HCl 0.1 mg tablet RxNorm: 759377 1 Tablet(s) PO TID 03/2409/28/2014 Inactive replaces 0.2mg dose Klor-Con 8 mEq tablet,extended release RxNorm: 401321 1 Tablet( s) PO BID 02/26/2014 08/31/2014 Inactive diclofenac sodium 75 mg tablet,delayed release RxNorm: 84490 6 1 Tablet(s) PO BID for pain 02/25/2014 03/24/2014 Inactive hydrocodone 10 mg-acetaminophen 325 mg tablet RxNorm: 281486 1-2 Tablet(s) QID as needed for pain TAKE ONE TO TWO TABLETS BY MOUTH FOUR TIMES A DAY . MUST LAST 30 DAYS 02/25/2014 03/26/2014 Inactive (Response to an electronic controlled substance refill request - RxReferenceNumber: [id number]) alprazolam 0.5 mg tablet RxNorm: 679061 Tablet(s) PO BI D as needed for anxiety TAKE ONE TABLET BY MOUTH TWICE A DAY , MUST LAST 30 DAYS 02/25/2014 Inactive (Response to an electronic controlled [place] bstance refill request - RxReferenceNumber: [id number]) [AttnRPh: Saving apply/adjudicate RxGRP:SG20 RxBIN:[id number] RxPCN: ID#:[id number]] alprazolam 0.5 mg tablet RxNorm: 329505 Tablet(s) TAKE ONE TABLET BY MOUTH TWICE A DAY , MUST LAST 30 DAYS 01/27/2014 02/24/2014 Inactive (Respo nse to an electronic controlled substance refill request - RxReferenceNumber: [id number]) [AttnRPh: Saving apply/adjudicate RxGRP:SG20 RxBIN:[id number] RxPCN:HT ID#:[id number]] hydrocodone 10 mg-acetaminophen 325 mg tablet RxNorm: 482195 1-2 Tablet(s) QID as needed for pain TAKE ONE TO TWO TABLETS BY MOUTH FOUR TIMES A DAY . MUST LAST 30 DAYS 01/27/2014 02/24/2014 Inactive (Response to an electronic controlled substance refill request - RxReferenceNumber: [id number]) alprazolam 0.5 mg tablet RxNorm: 494247 TAKE ONE TABLET BY MOUTH TWICE A DAY , MUST LAST 30 DAYS 01/27/2014 01/26/2014 Inactive (Response to a n electronic controlled substance refill request - RxReferenceNumber: [id number]) Premarin 1.25 mg tablet RxNorm: 876997 1-2 Tablet(s) PO QD 01/28/20 14 07/25/2014 Inactive alprazolam 0.5 mg tablet RxNorm: 760253 TAKE ONE TABLET BY MOUTH TWICE A DAY , MUST LAST 30 DAYS 01/27/2014 01/27/2014 Inactive (Response to a n electronic controlled substance refill request - RxReferenceNumber: [id number]) hydrocodone 10 mg-acetaminophen 325 mg tablet RxNorm: 655509 TAKE ONE TO TWO TABLETS BY MOUTH FOUR TIMES A DAY . MUST LAST 30 DAYS 01/27/20142013 Inactive (Response to an electronic controlled [place] bstance refill request - RxReferenceNumber: [id number]) Celebrex 200 mg capsule RxNorm: 118725 1 Capsule(s) PO QD TAKE ONE CAPSULE BY MOUTH EVERY DAY 12/29/2013 04/27/2014 Inactive hydrocodone 10 mg-acetaminophen 325 mg tablet RxNorm: 378644 1-2 Tablet(s) PO QID as needed for severe pain 12/29/2013 01/27/2014 Inactive allopurinol 300 mg tablet RxNorm: 893266 1 Tablet(s) PO QD TAKE ONE TABLET BY MOUTH EVERY DAY 12/29/2013 05/24/2014 Inactive alprazolam 0.5 mg tablet RxNorm: 025927 TAKE ONE TABLET BY MOUTH TWICE A DAY , MUST LAST 30 DAYS 12/29/2013 01/27/2014 Inactive (Response to a n electronic controlled substance refill request - RxReferenceNumber: [id number]) Celebrex 200 mg capsule RxNorm: 240395 1 Capsule(s) PO QD TAKE ONE CAPSULE BY MOUTH EVERY DAY 12/29/2013 12/29/2013 Inactive Bystolic 10 mg tablet RxNorm: 509298 1 Tablet(s) PO QAM TAKE ONE TABLET BY MOUTH EVERY MORNING 12/29/2013 05/24/2014 Inactive Bystolic 10 mg tablet RxNorm: 968801 1 Tablet(s) PO QAM TAKE ONE TABLET BY MOUTH EVERY MORNING 12/29/2013 12/29/2013 Inactive Singulair 10 mg tablet RxNorm: 821210 1 Tablet(s) PO QD TAKE ONE TABLET BY MOUTH EVERY DAY 12/29/2013 05/25/2014 Inactive hydrocodone 10 mg-acetaminophen 325 mg tablet RxNorm: 918706 TAKE ONE TO TWO TABLETS BY MOUTH FOUR TIMES A DAY . MUST LAST 30 DAYS 12/29/20132013 Inactive (Response to an electronic controlled [place] bstance refill request - RxReferenceNumber: [id number]) Trazadone 75mg Tablet RxNorm: 1 Tablet(s) PO QHS as needed 03/23/2014 Inactive Trazadone 75mg Tablet RxNorm: 1 Tablet(s) PO QHS 12/24/20132014 Inactive Soma 350 mg tablet RxNorm: 633485 Tablet(s) PO TAKE ON E TABLET BY MOUTH THREE TIMES A DAY NEEDED FOR MUSCLE SPASMS. THIS MUST LAST 30 DAYS BETWEEN REFILLS. 12/10/2013 12/22/2013 Inactive (Appended: Cont rolled substance eRx refill - RxReferenceNumber: [id number]) diclofenac sodium 75 mg tablet,delayed release RxNorm: 50402 6 1 Tablet(s) PO BID for pain 12/10/2013 02/24/2014 Inactive allopurinol 300 mg tablet RxNorm: 851496 1 Tablet(s) PO QD 11/20/19 14 12/29/2013 Inactive alprazolam 0.5 mg tablet RxNorm: 101853 2 Tablet(s) PO BID 11/13/19 14 12/29/2013 Inactive prn clonidine 0.1 mg tablet RxNorm: 839701 1 Tablet(s) PO TID 11/12/2013 02/09/2014 Inactive replaces 0.2mg dose Klor-Con M20 mEq tablet,extended release RxNorm: 735491 2 Tablet(s) PO BID to use with lasix 11/12/2013 05/10/2014 Inactive Singulair 10 mg tablet RxNorm: 039224 1 Tablet(s) PO QD 11/12/2013 Inactive hydrocodone 10 mg-acetaminophen 325 mg tablet RxNorm: 250783 1-2 Tablet(s) PO QID as needed for severe pain 11/12/2013 12/28/2013 Inactive Bystolic 10 mg tablet RxNorm: 591671 1 Tablet(s) PO QAM 11/12/2013 Inactive Soma 350 mg tablet RxNorm: 363514 Tablet(s) PO TAKE ON E TABLET BY MOUTH THREE TIMES A DAY NEEDED FOR MUSCLE SPASMS. THIS MUST LAST 30 DAYS BETWEEN REFILLS. 10/13/2013 12/10/2013 Inactive (Appended: Cont rolled substance eRx refill - RxReferenceNumber: [id number]) hydrocodone 10 mg-acetaminophen 325 mg tablet RxNorm: 134560 1-2 Tablet(s) PO QID as needed for severe pain 10/03/2013 11/11/2013 Inactive diclofenac sodium 75 mg tablet,delayed release RxNorm: 76887 8 1 Tablet(s) PO BID for pain 09/11/2013 12/10/2013 Inactive alprazolam 0.5 mg tablet RxNorm: 900180 1 Tablet(s) PO BID May refill on 04/26/13 09/01/2013 10/30/2013 Inactive prn hydrocodone 10 mg-acetaminophen 325 mg tablet RxNorm: 989092 1-2 Tablet(s) PO QID as needed for severe pain 09/01/2013 10/02/2013 Inactive triamterene 75 mg-hydrochlorothiazide 50 mg tablet RxNorm: 3 90417 1 Tablet(s) PO QD 08/04/2013 08/31/2014 Inactive cyclobenzaprine 10 mg tablet RxNorm: 856791 1 Tablet(s) PO TID prn spasm 08/04/2013 08/13/2013 Inactive clonidine 0.1 mg tablet RxNorm: 883853 1 Tablet(s) PO TID 08/04/2013 11/11/2013 Inactive replaces 0.2mg dose cyclobenzaprine 10 mg tablet RxNorm: 254215 1 Tablet(s) PO TID prn spasm 07/23/2013 08/01/2013 Inactive hydrocodone 10 mg-acetaminophen 325 mg tablet RxNorm: 507311 2 1-2 Tablet(s) PO QID as needed for severe pain 06/09/2013 08/07/2013 Inactive Singulair 10 mg tablet RxNorm: 713571 1 Tablet(s) PO QD 05/29/2013 Inactive Klor-Con 8 mEq tablet,extended release RxNorm: 479275 1 Tablet( s) PO BID 05/29/2013 02/26/2014 Inactive allopurinol 300 mg tablet RxNorm: 414865 1 Tablet(s) PO QD 05/29/20 13 11/19/2013 Inactive Bystolic 10 mg tablet RxNorm: 859785 1 Tablet(s) PO QAM take one daily in the morning. 05/29/2013 11/11/2013 Inactive scopolamine 1.5 mg 72 hr Transderm Patch RxNorm: 012493 Application TD Q72H for motion sickness 05/26/2013 07/22/2013 Inactive Soma 350 mg tablet RxNorm: 623005 1 Tablet(s) PO TID as needed for spasm 05/19/2013 10/13/2013 Inactive diclofenac sodium 75 mg tablet,delayed release RxNorm: 14242 8 1 Tablet(s) PO BID for pain 05/14/2013 07/22/2013 Inactive allopurinol 300 mg tablet RxNorm: 933596 1 Tablet(s) PO QD 04/25/20 13 05/28/2013 Inactive alprazolam 0.5 mg tablet RxNorm: 163658 1 Tablet(s) PO BID May refill on 04/26/13 04/25/2013 06/23/2013 Inactive prn Celebrex 200 mg capsule RxNorm: 376436 1 Capsule(s) PO QD 04/16/2013 12/29/2013 Inactive alprazolam 0.5 mg tablet RxNorm: 649677 1 Tablet(s) PO BID May refill on 04/26/13 04/16/2013 04/24/2013 Inactive prn Soma 350 mg tablet RxNorm: 988888 1 Tablet(s) PO TID as needed for spasm 04/16/2013 No Stop Date Active Lasix 40 mg tablet RxNorm: 330844 1 Tablet(s) PO QAM s hould take potassium supplementation with this medication 04/16/2013 06/14/2013 Inactive clonidine 0.1 mg tablet RxNorm: 574650 1 Tablet(s) PO TID 04/16/2013 08/03/2013 Inactive replaces 0.2mg dose prednisone 20 mg tablet RxNorm: 154740 1 Tablet(s) PO BID 04/16/2013 04/20/2013 Inactive diclofenac sodium 75 mg tablet,delayed release RxNorm: 13472 8 1 Tablet(s) PO BID for pain 04/14/2013 05/13/2013 Inactive hydrocodone 10 mg-acetaminophen 325 mg tablet RxNorm: 586204 2 1-2 Tablet(s) PO QID as needed for severe pain 04/14/2013 No Stop Date Active Lasix 40 mg tablet RxNorm: 329433 1 Tablet(s) PO QAM s hould take potassium supplementation with this medication 03/31/2013 04/15/2013 Inactive Celebrex 200 mg capsule RxNorm: 282234 1 Capsule(s) PO QD 03/31/2013 04/15/2013 Inactive alprazolam 0.5 mg tablet RxNorm: 135596 1 Tablet(s) PO BID 03/28/20 13 04/15/2013 Inactive prn hydrocodone 10 mg-acetaminophen 325 mg tablet RxNorm: 284127 2 1-2 Tablet(s) PO QID as needed for severe pain 03/10/2013 No Stop Date Active metformin ER 500 mg 24 hr tablet,extended release RxNorm: 86 1018 1 Tablet(s) PO QD 03/06/2013 07/22/2013 Inactive clindamycin 300 mg capsule RxNorm: 163992 2 Capsule(s) PO TID 03/0503/14/2013 Inactive Zaroxolyn 2.5 mg tablet RxNorm: 746183 1 Tablet(s) PO QAM 03/05/2013 05/19/2015 Inactive amlodipine 10 mg tablet RxNorm: 482219 1 Tablet(s) PO QD 03/03/2013 0 05/25/2013 Inactive Norvasc 10 mg tablet RxNorm: 066894 1 Tablet(s) PO QD 02/28/201307/11 Inactive Celebrex 200 mg capsule RxNorm: 900925 1 Capsule(s) PO QD 02/28/2013 03/30/2013 Inactive diclofenac sodium 75 mg tablet,delayed release RxNorm: 17433 8 1 Tablet(s) PO BID for pain 02/14/2013 03/15/2013 Inactive Soma 350 mg tablet RxNorm: 367600 1 Tablet(s) PO TID as needed for spasm 02/14/2013 No Stop Date Active hydrocodone 10 mg-acetaminophen 325 mg tablet RxNorm: 452848 2 1-2 Tablet(s) PO QID as needed for severe pain 02/14/2013 No Stop Date Active Norvasc 10 mg tablet RxNorm: 986825 1 Tablet(s) PO QD 02/10/201302/09 Inactive Celebrex 200 mg capsule RxNorm: 517549 1 Capsule(s) PO QD 01/27/2013 01/26/2013 Inactive Premarin 1.25 mg tablet RxNorm: 390871 1-2 Tablet(s) PO QD 01/28/20 13 06/25/2013 Inactive alprazolam 0.5 mg tablet RxNorm: 772413 1 Tablet(s) PO BID 01/28/20 13 02/25/2013 Inactive prn amlodipine 5 mg tablet RxNorm: 237610 1 Tablet(s) PO QD 01/27/2013 Inactive Celebrex 200 mg capsule RxNorm: 738063 1 Capsule(s) PO QD 01/27/2013 02/27/2013 Inactive gabapentin 600 mg tablet RxNorm: 551938 1 Tablet(s) PO QHS 01/16/20 13 07/22/2013 Inactive Soma 350 mg tablet RxNorm: 909448 1 Tablet(s) PO TID as needed for spasm 01/15/2013 No Stop Date Active hydrocodone 10 mg-acetaminophen 325 mg tablet RxNorm: 327155 2 1-2 Tablet(s) PO QID as needed for severe pain 01/15/2013 No Stop Date Active Soma 350 mg tablet RxNorm: 329494 1 Tablet(s) PO TID as needed for spasm 01/13/2013 No Stop Date Active alprazolam 0.5 mg tablet RxNorm: 436839 1 Tablet(s) PO BID 12/31/19 13 01/26/2013 Inactive prn diclofenac sodium 75 mg tablet,delayed release RxNorm: 89716 8 1 Tablet(s) PO BID for pain 12/09/2012 01/07/2013 Inactive gabapentin 600 mg tablet RxNorm: 978741 1 Tablet(s) PO QHS 12/10/19 13 01/07/2013 Inactive hydrocodone 10 mg-acetaminophen 325 mg tablet RxNorm: 218197 2 1-2 Tablet(s) PO QID as needed for severe pain 12/02/2012 No Stop Date Active Levaquin 750 mg tablet RxNorm: 657252 1 Tablet(s) PO QD 11/21/2012 Inactive Singulair 10 mg tablet RxNorm: 392727 1 Tablet(s) PO QD 11/11/2012 Inactive clonidine 0.2 mg tablet RxNorm: 977302 1 Tablet(s) PO TID 11/11/2012 04/15/2013 Inactive alprazolam 0.5 mg tablet RxNorm: 753493 1 Tablet(s) PO BID 11/12/19 13 12/10/2012 Inactive prn Klor-Con 8 mEq tablet,extended release RxNorm: 249052 1 Tablet( s) PO BID 11/11/2012 03/04/2013 Inactive hydrocodone 10 mg-acetaminophen 325 mg tablet RxNorm: 808915 2 1-2 Tablet(s) PO QID as needed for severe pain 11/06/2012 No Stop Date Active alprazolam 0.5 mg tablet RxNorm: 696805 1 Tablet(s) PO BID 10/15/19 13 11/10/2012 Inactive prn hydrocodone-acetaminophen 10 mg-325 mg tablet RxNorm: 414660 2 1-2 Tablet(s) PO QID as needed for severe pain 10/10/2012 10/09/2012 Inactive allopurinol 300 mg tablet RxNorm: 595639 1 Tablet(s) PO QD 09/20/19 13 12/18/2012 Inactive alprazolam 0.5 mg tablet RxNorm: 747130 1 Tablet(s) PO BID 09/17/19 13 10/14/2012 Inactive prn hydrocodone-acetaminophen 10 mg-325 mg tablet RxNorm: 014692 2 1-2 Tablet(s) PO QID as needed for severe pain 08/22/2012 08/21/2012 Inactive Norvasc 10 mg tablet RxNorm: 741139 1 Tablet(s) PO QD 08/12/201201/10 Inactive Premarin 1.25 mg tablet RxNorm: 546473 1-2 Tablet(s) PO QD 07/30/20 12 12/26/2012 Inactive alprazolam 0.5 mg tablet RxNorm: 181884 1 Tablet(s) PO BID 07/29/20 12 08/27/2012 Inactive prn Klor-Con 8 mEq tablet,extended release RxNorm: 937880 1 Tablet( s) PO BID 07/29/2012 11/10/2012 Inactive hydrocodone-acetaminophen 10 mg-325 mg tablet RxNorm: 846322 2 1-2 Tablet(s) PO QID as needed for severe pain 07/29/2012 No Stop Date Active Premarin 1.25 mg tablet RxNorm: 392336 1-2 Tablet(s) PO QD 07/29/20 12 07/29/2012 Inactive clonidine 0.2 mg tablet RxNorm: 702394 1 Tablet(s) PO TID 07/29/2012 10/28/2012 Inactive ketorolac 10 mg tablet RxNorm: 070322 1 Tablet(s) PO QID prn mitul leonardche 07/18/2012 No Stop Date Active hydrocodone-acetaminophen 10 mg-325 mg tablet RxNorm: 743272 2 1-2 Tablet(s) PO QID as needed for severe pain 07/03/2012 No Stop Date Active amlodipine 5 mg tablet RxNorm: 142206 1 Tablet(s) PO QD 07/02/2012 Inactive allopurinol 300 mg tablet RxNorm: 811703 1 Tablet(s) PO QD 07/02/20 12 09/19/2012 Inactive Celebrex 200 mg capsule RxNorm: 758944 1 Capsule(s) PO QD for j oint pain 06/26/2012 10/23/2012 Inactive diclofenac sodium 75 mg tablet,delayed release RxNorm: 38765 8 1 Tablet(s) PO BID for pain 06/19/2012 09/16/2012 Inactive hydrocodone-acetaminophen 10 mg-325 mg tablet RxNorm: 439470 2 1-2 Tablet(s) PO QID as needed for severe pain 06/10/2012 No Stop Date Active alprazolam 0.5 mg tablet RxNorm: 383399 1 Tablet(s) PO BID 06/03/20 12 07/02/2012 Inactive prn ketorolac 10 mg tablet RxNorm: 360313 1 Tablet(s) PO Q8H 05/27/2012 0 01/21/2019 Inactive as needed for headache hydrocodone-acetaminophen 10 mg-325 mg tablet RxNorm: 668635 2 1-2 Tablet(s) PO QID as needed for severe pain 05/15/2012 No Stop Date Active allopurinol 300 mg tablet RxNorm: 777138 1 Tablet(s) PO QD 05/14/20 12 06/12/2012 Inactive allopurinol 300 mg tablet RxNorm: 888356 1 Tablet(s) PO QD 05/14/20 12 05/13/2012 Inactive amlodipine 5 mg tablet RxNorm: 964774 1 Tablet(s) PO QD 05/01/2012 Inactive amlodipine 5 mg Tab RxNorm: 554962 1 Tablet(s) PO QD 05/01/201204/30 Inactive Celebrex 200 mg capsule RxNorm: 730557 1 Capsule(s) PO QD for j oint pain 05/01/2012 06/25/2012 Inactive Singulair 10 mg tablet RxNorm: 412110 1 Tablet(s) PO QD 05/01/2012 Inactive alprazolam 0.5 mg tablet RxNorm: 571445 1 Tablet(s) PO BID 05/01/20 12 05/30/2012 Inactive prn Celebrex 200 mg Cap RxNorm: 261332 1 Capsule(s) PO QD for joint radu n 05/01/2012 04/30/2012 Inactive hydrocodone-acetaminophen 10 mg-325 mg tablet RxNorm: 386369 2 1-2 Tablet(s) PO QID as needed for severe pain 04/19/2012 No Stop Date Active Lasix 40 mg tablet RxNorm: 620352 1 Tablet(s) PO QAM s hould take potassium supplementation with this medication 04/05/2012 06/03/2012 Inactive alprazolam 0.5 mg Tab RxNorm: 838021 1 Tablet(s) PO BID 04/05/2012 Inactive prn hydrocodone-acetaminophen 10 mg-325 mg Tab RxNorm: 3583510 1-2 Tablet(s) PO QID as needed for severe pain 03/25/2012 03/24/2012 Inactive clonidine 0.2 mg Tab RxNorm: 442969 1 Tablet(s) PO TID 03/08/2012 Inactive alprazolam 0.5 mg Tab RxNorm: 470543 1 Tablet(s) PO BID 03/08/2012 Inactive prn Soma 350 mg tablet RxNorm: 033208 1 Tablet(s) PO TID for spasm 02/0903/18/2012 Inactive clonidine 0.2 mg tablet RxNorm: 092209 1 Tablet(s) PO TID 03/08/2012 07/28/2012 Inactive Celebrex 200 mg Cap RxNorm: 987057 1 Capsule(s) PO QD for joint radu n 03/01/2012 04/29/2012 Inactive amlodipine 5 mg Tab RxNorm: 879457 1 Tablet(s) PO QD 02/26/201202/24 Inactive amlodipine 5 mg Tab RxNorm: 657923 1 Tablet(s) PO QD 02/26/201204/25 Inactive Bactroban 2 % Ointment RxNorm: 577377 Application TOP QID to sores 02/23/2012 No Stop Date Active amlodipine 2.5 mg tablet RxNorm: 471821 1 Tablet(s) PO QHS 02/20/20 12 02/25/2012 Inactive doxycycline hyclate 100 mg Cap RxNorm: 0652110 1 Capsule(s) PO BID 02/20/2012 02/29/2012 Inactive hydrocodone-acetaminophen 10 mg-325 mg Tab RxNorm: 0272461 1-2 T ablet(s) PO QID 02/08/2012 No Stop Date Active alprazolam 0.5 mg Tab RxNorm: 637634 1 Tablet(s) PO BID 02/08/2012 Inactive prn Singulair 10 mg Tab RxNorm: 198552 1 Tablet(s) PO QD 02/08/201204/30 Inactive Soma 350 mg Tab RxNorm: 461946 1 Tablet(s) PO TID for spasm 012 03/07/2012 Inactive Soma 350 mg Tab RxNorm: 198557 1 Tablet(s) PO TID for spasm 012 02/05/2012 Inactive diclofenac sodium 75 mg tablet,delayed release RxNorm: 38589 8 1 Tablet(s) PO BID for pain 02/01/2012 03/18/2012 Inactive Celebrex 200 mg Cap RxNorm: 395965 1 Capsule(s) PO QD for joint radu n 01/30/2012 02/28/2012 Inactive Lasix 40 mg Tab RxNorm: 597545 1 Tablet(s) PO QAM 01/24/2012 03/18/20 12 Inactive potassium chloride ER 20 mEq tablet,extended release(part/cr yst) RxNorm: 578446 2 Tablet(s) PO BID 01/24/2012 02/22/2012 Inactive alprazolam 0.5 mg Tab RxNorm: 815304 1 Tablet(s) PO BID 01/11/2012 Inactive prn hydrocodone-acetaminophen 10 mg-325 mg Tab RxNorm: 9949630 1-2 T ablet(s) PO QID 01/11/2012 No Stop Date Active Ambien 10 mg Tab RxNorm: 162443 1 Tablet(s) PO QHS 01/11/2012 012 Inactive Klor-Con 8 mEq Tab RxNorm: 822733 1 Tablet(s) PO BID 01/11/201201/22 Inactive diclofenac sodium 75 mg Tab, Delayed Release RxNorm: 186203 1 Tablet(s) PO BID for pain 01/10/2012 01/31/2012 Inactive Ambien 10 mg Tab RxNorm: 211771 1 Tablet(s) PO QHS 12/11/2011 012 Inactive alprazolam 0.5 mg Tab RxNorm: 389554 1 Tablet(s) PO BID 12/11/2011 Inactive prn hydrocodone 10 mg-acetaminophen 325 mg tablet RxNorm: 663600 1-2 Tablet(s) PO TID 11/28/2011 No Stop Date Active as needed for pa in - Previous quantity #240, will start dosing for #180 in April 2011 per Doctor Appiah. Ambien 10 mg Tab RxNorm: 742765 1 Tablet(s) PO QHS 11/09/2011 012 Inactive alprazolam 0.5 mg Tab RxNorm: 997836 1 Tablet(s) PO BID 11/09/2011 Inactive prn hydrocodone-acetaminophen 10 mg-325 mg Tab RxNorm: 6895581 1-2 T ablet(s) PO TID 11/06/2011 No Stop Date Active as needed for pain - Previous quantity #240, will start dosing for #180 in April 2011 per Doctor Td. Singulair 10 mg Tab RxNorm: 860400 1 Tablet(s) PO QD 10/13/201110/12 Inactive Singulair 10 mg Tab RxNorm: 333286 1 Tablet(s) PO QD 10/13/201102/06 Inactive hydrocodone-acetaminophen 10 mg-325 mg Tab RxNorm: 6647650 1-2 T ablet(s) PO TID 10/10/2011 10/09/2011 Inactive as needed for pain - Previous quantity #240, will start dosing for #180 in April 2011 per Doctor Td. hydrocodone-acetaminophen 10 mg-325 mg Tab RxNorm: 5733808 1-2 T ablet(s) PO TID 10/09/2011 No Stop Date Active as needed for pain - Previous quantity #240, will start dosing for #180 in April 2011 per Doctor Td. Klor-Con 8 mEq Tab RxNorm: 301948 1 Tablet(s) PO BID 10/02/201101/09 Inactive triamterene 75 mg-hydrochlorothiazide 50 mg tablet RxNorm: 3 78137 1 Tablet(s) PO QD 09/14/2011 03/06/2013 Inactive Ambien 10 mg Tab RxNorm: 061050 1 Tablet(s) PO QHS 09/14/2011 012 Inactive hydrocodone-acetaminophen 10 mg-325 mg Tab RxNorm: 2085465 1-2 T ablet(s) PO TID 09/14/2011 No Stop Date Active as needed for pain - Previous quantity #240, will start dosing for #180 in April 2011 per Doctor Td. alprazolam 0.5 mg Tab RxNorm: 368830 1 Tablet(s) PO BID 09/14/2011 Inactive prn Zithromax 500 mg Tab RxNorm: 453503 1 Tablet(s) PO QD 09/13/201109/10 Inactive prednisone 20 mg Tab RxNorm: 832981 1 Tablet(s) PO BID 08/31/2011 Inactive Ambien 10 mg Tab RxNorm: 133121 1 Tablet(s) PO QHS 08/17/2011 011 Inactive hydrocodone-acetaminophen 10 mg-325 mg Tab RxNorm: 7122433 1-2 T ablet(s) PO TID 08/17/2011 No Stop Date Active as needed for pain - Previous quantity #240, will start dosing for #180 in April 2011 per Doctor Td. clonidine 0.2 mg Tab RxNorm: 175725 1 Tablet(s) PO TID 08/17/201112/2011 Inactive Ambien 10 mg Tab RxNorm: 200323 1 Tablet(s) PO QHS 08/17/2011 019 Inactive alprazolam 0.5 mg Tab RxNorm: 539475 1 Tablet(s) PO BID 08/17/2011 Inactive prn hydrocodone-acetaminophen 10 mg-325 mg Tab RxNorm: 1719975 1-2 T ablet(s) PO TID 08/17/2011 08/16/2011 Inactive as needed for pain - Previous quantity #240, will start dosing for #180 in April 2011 per Doctor Td. Singulair 10 mg Tab RxNorm: 763424 1 Tablet(s) PO QD 08/17/201108/16 Inactive Klor-Con 8 mEq Tab RxNorm: 682474 1 Tablet(s) PO QD 08/17/20112011 Inactive alprazolam 0.5 mg Tab RxNorm: 783145 1 Tablet(s) PO BID 07/20/2011 Inactive prn Ambien 10 mg Tab RxNorm: 543255 1 Tablet(s) PO QHS 07/20/2011 012 Inactive Singulair 10 mg Tab RxNorm: 134087 1 Tablet(s) PO QD 07/20/201107/19 Inactive Premarin 1.25 mg tablet RxNorm: 323633 2 Tablet(s) PO QD 07/20/2011 0 01/21/2019 Inactive Premarin 1.25 mg tablet RxNorm: 383737 1-2 Tablet(s) PO QD 07/20/20 11 12/16/2011 Inactive Premarin 1.25 mg Tab RxNorm: 204802 1-2 Tablet(s) PO QD 07/06/2011 Inactive alprazolam 0.5 mg Tab RxNorm: 199473 1 Tablet(s) PO BID 06/22/2011 Inactive prn alprazolam 0.5 mg Tab RxNorm: 702511 1 Tablet(s) PO BID 06/22/2011 Inactive prn Premarin 1.25 mg Tab RxNorm: 974452 1 Tablet(s) PO QD m ay do 90 day fill if desired 06/22/2011 07/05/2011 Inactive hydrocodone-acetaminophen 10 mg-325 mg Tab RxNorm: 5129336 1-2 T ablet(s) PO TID 06/22/2011 No Stop Date Active as needed for pain - Previous quantity #240, will start dosing for #180 in April 2011 per Doctor Td. clonidine 0.2 mg Tab RxNorm: 298486 1 Tablet(s) PO TID 05/25/201103/2011 Inactive triamterene-hydrochlorothiazide 75 mg-50 mg Tab RxNorm: 3108 18 1 Tablet(s) PO QD 05/25/2011 09/13/2011 Inactive alprazolam 0.5 mg Tab RxNorm: 111277 1 Tablet(s) PO BID 05/25/2011 Inactive prn hydrocodone-acetaminophen 10 mg-325 mg Tab RxNorm: 2968117 1-2 T ablet(s) PO TID 05/25/2011 No Stop Date Active as needed for pain - Previous quantity #240, will start dosing for #180 in April 2011 per Doctor Td. Robaxin-750 750 mg Tab RxNorm: 302815 2 Tablet(s) PO QHS 05/22/2011 1 Inactive prn spasm hydrocodone-acetaminophen 10 mg-325 mg Tab RxNorm: 2486926 1-2 T ablet(s) PO TID 04/26/2011 No Stop Date Active as needed for pain - Previous quantity #240, will start dosing for #180 in April 2011 per Doctor Td. alprazolam 0.5 mg Tab RxNorm: 086330 1 Tablet(s) PO BID 04/25/2011 Inactive prn Klor-Con 8 mEq Tab RxNorm: 685776 1 Tablet(s) PO QD 03/30/20112010 Inactive Klor-Con 8 mEq Tab RxNorm: 697105 1 Tablet(s) PO QD 03/29/20112010 Inactive hydrocodone-acetaminophen 10 mg-325 mg Tab RxNorm: 1544858 1-2 T ablet(s) PO TID 03/20/2011 04/25/2011 Inactive as needed for pain - Previous quantity #240, will start dosing for #180 in April 2011 per Doctor Td. alprazolam 0.5 mg Tab RxNorm: 459282 1 Tablet(s) PO BID prn 011 03/30/2011 Inactive Ambien 10 mg Tab RxNorm: 374712 1 Tablet(s) PO QHS 03/01/2011 011 Inactive cyclobenzaprine 10 mg Tab RxNorm: 638105 1 Tablet(s) PO TID 011 03/18/2012 Inactive cyclobenzaprine 10 mg Tab RxNorm: 487684 1 Tablet(s) PO TID 011 01/08/2011 Inactive cyclobenzaprine 10 mg Tab RxNorm: 930544 1 Tablet(s) PO TID 011 12/20/2010 Inactive terbinafine 250 mg Tab RxNorm: 335454 1 Tablet(s) PO QD 12/12/2010 Inactive triamterene-hydrochlorothiazide 75 mg-50 mg Tab RxNorm: 3108 18 1 Tablet(s) PO QD 12/07/2010 01/12/2020 Inactive Klor-Con 8 8 mEq Tab RxNorm: 554951 1 Tablet(s) PO QD 12/07/201001/08 Inactive Premarin 1.25 mg Tab RxNorm: 348551 2 Tablet(s) PO QD 12/07/201001/08 Inactive clonidine 0.2 mg Tab RxNorm: 070525 1 Tablet(s) PO TID 12/07/2010 Inactive hydrocodone-acetaminophen 7.5 mg-650 mg Tab RxNorm: 132801 1 Ta blet(s) PO Q4H 12/05/2010 01/21/2019 Inactive hydrocodone-acetaminophen 7.5 mg-650 mg Tab RxNorm: 788186 1 Ta blet(s) PO Q4H 10/26/2010 11/14/2010 Inactive hydrocodone-acetaminophen 7.5 mg-650 mg Tab RxNorm: 258592 1 Ta blet(s) PO Q4H 10/13/2010 10/25/2010 Inactive hydrocodone-acetaminophen 7.5 mg-650 mg Tab RxNorm: 007839 1 Ta blet(s) PO Q4H 09/15/2010 09/12/2010 Inactive alprazolam 0.5 mg Tab RxNorm: 399217 1 Tablet(s) PO BID prn 011 09/12/2010 Inactive terbinafine 250 mg Tab RxNorm: 417076 1 Tablet(s) PO QD 09/05/2010 Inactive hydrocodone-acetaminophen 7.5 mg-650 mg Tab RxNorm: 568718 1 Ta blet(s) PO Q4H 08/29/2010 09/17/2010 Inactive alprazolam 0.5 mg Tab RxNorm: 789483 1 Tablet(s) PO BID prn 010 09/27/2010 Inactive alprazolam 0.5 mg Tab RxNorm: 210622 1 Tablet(s) PO BID prn 010 09/06/2010 Inactive Klor-Con 8 mEq Tab RxNorm: 377478 1 Tablet(s) PO QD 08/08/20102010 Inactive hydrocodone-acetaminophen 7.5 mg-650 mg Tab RxNorm: 884325 1 Ta blet(s) PO Q4H 08/08/2010 08/27/2010 Inactive Ambien 10 mg Tab RxNorm: 214100 1 Tablet(s) PO QHS 08/08/2010 Inactive clonidine 0.2 mg Tab RxNorm: 873369 1 Tablet(s) PO TID 08/08/2010 Inactive Premarin 1.25 mg Tab RxNorm: 261510 2 Tablet(s) PO QD 08/08/201009/12 Inactive Ambien 10 mg Tab RxNorm: 700030 1 Tablet(s) PO QHS 07/18/2010 Inactive alprazolam 0.5 mg Tab RxNorm: 762471 1 Tablet(s) PO BID prn 010 08/07/2010 Inactive hydrocodone-acetaminophen 7.5 mg-650 mg Tab RxNorm: 761514 1 Ta blet(s) PO Q4H 07/12/2010 07/31/2010 Inactive clonidine 0.2 mg Tab RxNorm: 816902 1 Tablet(s) PO TID 06/20/2010 Inactive terbinafine 250 mg Tab RxNorm: 850391 1 Tablet(s) PO QD 05/24/2010 Inactive Clonidine 0.2 mg Tab RxNorm: 937484 1 Tablet(s) PO TID 05/24/201006/2010 Inactive Ambien 10 mg Tab RxNorm: 571728 1 Tablet(s) PO QHS 05/24/2010 010 Inactive alprazolam 0.5 mg Tab RxNorm: 185689 1 Tablet(s) PO BID 05/24/2010 Inactive Klor-Con 8 mEq Tab RxNorm: 642233 1 Tablet(s) PO QD 05/24/20102009 Inactive alprazolam 0.5 mg Tab RxNorm: 724847 2 Tablet(s) PO QD prn 05/24/20 10 07/17/2010 Inactive triamterene-hydrochlorothiazide 75 mg-50 mg Tab RxNorm: 3108 18 1 Tablet(s) PO QD 05/24/2010 11/19/2010 Inactive Ambien 10 mg Tab RxNorm: 235529 1 Tablet(s) PO QHS 05/23/2010 010 Inactive Alprazolam 0.5 mg Tab RxNorm: 033807 2 Tablet(s) PO QD prn 05/23/2005/23/2010 Inactive Premarin 1.25 mg Tab RxNorm: 518571 2 Tablet(s) PO QD 05/19/201007/12 Inactive Hydrocodone-Acetaminophen 7.5 mg-650 mg Tab RxNorm: 131855 1 Ta blet(s) PO Q4H 05/19/2010 03/20/2011 Inactive Prednisone 20 mg Tab RxNorm: 903117 1 Tablet(s) PO BID 05/17/2010 Inactive Prednisone 20 mg Tab RxNorm: 255560 1 Tablet(s) PO BID 05/06/201001/2010 Inactive Premarin 1.25 mg Tab RxNorm: 852649 Tablet(s) PO 2 M-W-F, and 1 Vo-So-Fce-Sun 05/05/2010 08/02/2010 Inactive Premarin 1.25 mg Tab RxNorm: 041210 Tablet(s) PO 2 M-W-F, and 1 Ix-Iz-Ehg-Sun 05/04/2010 05/04/2010 Inactive Premarin 1.25 mg Tab RxNorm: 008036 Tablet(s) PO 2 M-W-F, and 1 Qz-Ds-Eut-Sun 05/04/2010 05/03/2010 Inactive Prednisone 20 mg Tab RxNorm: 254553 1 Tablet(s) PO BID 04/27/2010 Inactive Alprazolam 0.5 mg Tab RxNorm: 198904 2 Tablet(s) PO QD prn 04/26/20 10 05/22/2010 Inactive Clindamycin 300 mg Cap RxNorm: 978442 2 Capsule(s) PO TID 04/05/2010 04/18/2010 Inactive Terbinafine 250 mg Tab RxNorm: 605838 1 Tablet(s) PO QD 04/04/2010 Inactive Hydrocodone-Acetaminophen 7.5 mg-650 mg Tab RxNorm: 510089 1 Ta blet(s) PO Q4H 03/30/2010 04/18/2010 Inactive Avelox 400 mg Tab RxNorm: 020147 1 Tablet(s) PO QD 03/09/2010 010 Inactive Hydrocodone-Acetaminophen 7.5 mg-650 mg Tab RxNorm: 318147 1 Ta blet(s) PO Q4H 03/08/2010 03/27/2010 Inactive Alprazolam 0.5 mg Tab RxNorm: 910563 2 Tablet(s) PO QD prn 03/08/20 10 04/25/2010 Inactive Klor-Con 8 mEq Tab RxNorm: 546058 1 Tablet(s) PO QD when takes lasi x 03/07/2010 09/29/2019 Inactive Premarin 1.25 mg Tab RxNorm: 893686 1 Tablet(s) PO QD 03/03/201003/11 Inactive Alprazolam 0.5 mg Tab RxNorm: 329807 1 Tablet(s) PO BID PRN 010 No Stop Date Active triamterene-hydrochlorothiazide 75 mg-50 mg Tab RxNorm: 3108 18 1 Tablet(s) PO QD 02/09/2010 02/03/2011 Inactive Hydrocodone-Acetaminophen 10 mg-750 mg Tab RxNorm: 250918 1 Tablet(s) PO Q4H PRN 02/09/2010 03/20/2011 Inactive Clonidine 0.2 mg Tab RxNorm: 632065 1 Tablet(s) PO TID 01/13/201009/2009 Inactive Alprazolam 0.5 mg Tab RxNorm: 902220 1 Tablet(s) PO BID PRN 010 01/12/2010 Inactive Hydrocodone-Acetaminophen 10 mg-750 mg Tab RxNorm: 808153 1 Tablet(s) PO Q4H PRN 01/13/2010 01/12/2010 Inactive ANGELIQ 1 mg-0.5 mg Tab RxNorm: 6555762 1 Tablet(s) PO QD 12/27/2009 01/23/2010 Inactive Lasix 40 mg Tab RxNorm: 577050 1 Tablet(s) PO QAM 12/14/2009 06/11/20 10 Inactive Vitamin B12 1000mcg Tablet RxNorm: 1 Tablet(s) PO QD No Start Date Active cyclobenzaprine 10 mg tablet RxNorm: 838864 1 Tablet(s) PO TID as needed DO NOT USE WITH BACLOFEN No Start Date Active Vitamin D 5,000 unit Tab RxNorm: 1 Tablet(s) PO QD No Start Date Active vitamin E (dl, acetate) 400 unit Cap RxNorm: 103120 1 Capsule(s ) PO QD No Start Date Active Benadryl 25 mg Cap RxNorm: 9788652 Capsule(s) PO PRN No Start Date Inactive amitriptyline 100 mg tablet RxNorm: 609642 1 Tablet(s) PO QHS No St art Date 11/27/2016 Inactive Zithromax Z-Dustin 250 mg tablet RxNorm: 035179 Tablet(s) PO as di rected No Start Date 07/22/2013 Inactive Klor-Con 8 mEq tablet,extended release RxNorm: 193203 1 Tablet( s) PO BID No Start Date 07/28/2012 Inactive scopolamine 1.5 mg 72 hr Transderm Patch RxNorm: 206604 Application TD Q72H for motion sickness No Start Date 05/25/2013 Inactive Klonopin 1 mg tablet RxNorm: 490544 1-2 Tablet(s) PO QHS as nee ded for sleep No Start Date 06/20/2015 Inactive Klor-Con M20 mEq tablet,extended release RxNorm: 515477 2 Tablet(s) PO BID to use with lasix No Start Date 11/11/2013 Inactive Bystolic 5 mg tablet RxNorm: 580398 1 Tablet(s) PO QD No Start Date 1 Inactive Bystolic 10 mg tablet RxNorm: 269076 1 Tablet(s) PO BID No Start Da te 07/06/2015 Inactive Premarin 1.25 mg Tab RxNorm: 337294 Tablet(s) PO 2 -W-, and 1 Bs-Yo-Apa-Sun No Start Date 05/03/2010 Inactive baclofen 20 mg tablet RxNorm: 557230 1 Tablet(s) PO TID as needed for muscle spasm No Start Date 07/22/2015 Inactive hydrocodone-acetaminophen 7.5 mg-650 mg Tab RxNorm: 575745 1 Tablet(s) PO Q4H as needed for pain No Start Date 03/20/2011 Inactive albuterol sulfate 1.25 mg/3 mL Neb Solution RxNorm: 743725 1 Unit Dose INH Q4H 2boxes No Start Date 09/06/2015 Inactive Butrans 20 mcg/hour Transderm Patch RxNorm: 022317 1 TD WEEKLY apply to skin weekly after removing previous. No Start Date 07/22/2013 Inactive Medrol (Dustin) 4 mg tablets in a dose pack RxNorm: 799394 Tablet(s) PO As Directed No Start Date 07/30/2016 Inactive hydrocodone-acetaminophen 10 mg-325 mg Tab RxNorm: 4722230 1-2 Tablet(s) PO TID as needed for pain No Start Date 03/19/2011 Inactive Klonopin 1 mg tablet RxNorm: 964236 1 Tablet(s) PO QHS No Start Date 02/28/2016 Inactive honey topical RxNorm: topical No Start Date 06/16/2018 Inactive Clonidine 0.2 mg Tab RxNorm: 367550 1 Tablet(s) PO TID No Start Date 01/12/2010 Inactive ketorolac 10 mg tablet RxNorm: 884865 1 Tablet(s) PO Q8H No Start D ate 03/18/2012 Inactive as needed for headache Singulair 10 mg Tab RxNorm: 042240 1 Tablet(s) PO QD No Start Date Inactive Premarin 1.25 mg Tab RxNorm: 555835 1 Tablet(s) PO QD No Start Date 1 Inactive Flonase 50 mcg/Actuation Nasal [place] RxNorm: 6906034 1 [place] AL BID No Start Date 03/18/2012 Inactive Terbinafine 250 mg Tab RxNorm: 273655 1 Tablet(s) PO QD No Start Da te 04/03/2010 Inactive Fexofenadine 180 mg Tab RxNorm: 7930392 1 Tablet(s) PO QD No Start Date 09/06/2015 Inactive baclofen 20 mg tablet RxNorm: 810553 1 Tablet(s) PO TID as needed N o Start Date 05/25/2014 Inactive Diovan 160 mg Tab RxNorm: 829689 1 Tablet(s) PO QD No Start Date 09/12 Inactive mupirocin 2 % topical ointment RxNorm: 554054 1 Application TOP QID No Start Date 04/25/2016 Inactive ZOFRAN ODT 4 mg Tab, Rapid Dissolve RxNorm: 363357 1 Tablet(s) PO Q4H No Start Date 03/18/2012 Inactive as needed for nausea and vomiting Alprazolam 0.5 mg Tab RxNorm: 221556 1 Tablet(s) PO BID PRN No Star t Date 01/12/2010 Inactive cyclobenzaprine 10 mg tablet RxNorm: 241937 1 Tablet(s) PO TID as needed for muscle spasm No Start Date 10/08/2017 Inactive Albuterol 0.083% Aerosol Solution RxNorm: 1 Appl ication INH Q4H Use one ampule every 4 hrs with nebulizer as needed for shortness of breath. No Start Date 10/09/2010 Inactive lorazepam 1 mg tablet RxNorm: 464093 1 1/2 Tablet(s) PO QHS No Star t Date 02/02/2016 Inactive Melatonin 3 mg Tab RxNorm: 673812 Tablet(s) PO PRN No Start Date 07/11 Inactive Medrol (Dustin) 4 mg Tabs in a Dose Pack RxNorm: 822319 Tablet(s) PO N o Start Date 11/28/2010 Inactive lorazepam 1 mg tablet RxNorm: 957636 1 Tablet(s) PO QHS as need ed for sleep No Start Date 01/30/2016 Inactive hydrocodone-acetaminophen 10 mg-325 mg Tab RxNorm: 1187904 1-2 Tablet(s) PO QID as needed for severe pain No Start Date 03/24/2012 Inactive celecoxib 200 mg capsule RxNorm: 577395 1 Capsule(s) PO BID No Star t Date 06/26/2019 Inactive amlodipine 5 mg-benazepril 20 mg capsule RxNorm: 430717 1 Capsu le(s) PO QD No Start Date 04/10/2017 Inactive Bystolic 20 mg tablet RxNorm: 746991 1/2 Tablet(s) PO QAM No Start Date 01/23/2016 Inactive Bystolic 20 mg tablet RxNorm: 956237 1 Tablet(s) PO QAM No Start Da te 04/25/2016 Inactive Ambien 10 mg Tab RxNorm: 309001 1 Tablet(s) PO QHS No Start Date 05/11 Inactive Klor-Con 8 mEq Tab RxNorm: 517980 1 Tablet(s) PO QD when takes lasix No Start Date 03/06/2010 Inactive aspirin 81 mg tablet RxNorm: 448678 1 Tablet(s) PO QD No Start Date 0 01/29/2018 Inactive hydrocodone-acetaminophen 10 mg-325 mg Tab RxNorm: 5954186 1-2 T ablet(s) PO QID No Start Date 01/10/2012 Inactive Bystolic 10 mg tablet RxNorm: 419793 1 Tablet(s) PO QAM take one daily in the morning. No Start Date 05/28/2013 Inactive nystatin 100,000 unit/mL Oral Susp RxNorm: 063367 5 Milliliter( s) PO QID No Start Date 03/18/2012 Inactive swish and spit scopolamine 1.5 mg 72 hr Transderm Patch RxNorm: 728671 1 Unit Dose TD Q72H for motion sickness No Start Date 12/23/2013 Inactive Hydrocodone-Acetaminophen 10 mg-750 mg Tab RxNorm: 279068 1 Tablet(s) PO Q4H PRN No Start Date 01/12/2010 Inactive Soma 350 mg tablet RxNorm: 430500 1 Tablet(s) PO TID as needed for spasm No Start Date 01/12/2013 Inactive baclofen 10 mg tablet RxNorm: 443282 1 Tablet(s) PO TID as needed for muscle spasm No Start Date 09/18/2019 Inactive Soma 350 mg Tab RxNorm: 941058 1 Tablet(s) PO TID for spasm No Star t Date 01/31/2012 Inactive Co Q-10 400 mg capsule RxNorm: 925129 1 Capsule(s) PO QD No Start D ate 01/21/2019 Inactive nystatin 100,000 unit/gram topical cream RxNorm: 501080 Applica tion TOP BID No Start Date 03/22/2015 Inactive Exforge 5 mg-160 mg Tab RxNorm: 075182 1 Tablet(s) PO QD No Start D ate 10/09/2010 Inactive Hydrocodone-Acetaminophen 7.5 mg-650 mg Tab RxNorm: 491763 1 Ta blet(s) PO Q4H No Start Date 03/07/2010 Inactive Robaxin-750 750 mg Tab RxNorm: 071662 1-2 Tablet(s) PO TID prn spasm No Start Date 05/21/2011 Inactive amlodipine 5 mg tablet RxNorm: 289750 1 Tablet(s) PO QHS No Start D ate 09/29/2015 Inactive oxycodone-acetaminophen 10 mg-325 mg tablet RxNorm: 2712319 1-2 Tablet(s) PO Q6H No Start Date 06/16/2018 Inactive Triamterene-Hydrochlorothiazide 75 mg-50 mg Tab RxNorm: 3108 18 1 Tablet(s) PO QD No Start Date 02/08/2010 Inactive Alprazolam 0.5 mg Tab RxNorm: 794762 2 Tablet(s) PO QD prn No Start Date 03/07/2010 Inactive Bystolic 20 mg tablet RxNorm: 127961 1 Tablet(s) PO QAM No Start Da te 08/17/2015 Inactive ketorolac 10 mg tablet RxNorm: 520920 1 Tablet(s) PO QID prn he adache No Start Date 07/17/2012 Inactive acyclovir 800 mg Tab RxNorm: 612253 1 Tablet(s) PO BID No Start Date 03/18/2012 Inactive duloxetine 60 mg capsule,delayed release RxNorm: 136109 1 Capsu le(s) PO QD No Start Date 09/29/2015 Inactive Norvasc 5 mg tablet RxNorm: 023885 1 Tablet(s) PO QHS No Start Date 1 10/18/2014 Inactive promethazine 25 mg tablet RxNorm: 056670 1 Tablet(s) PO Q8H use sparingly No Start Date 07/22/2013 Inactive alprazolam 0.5 mg tablet RxNorm: 579345 3 Tablet(s) PO QHS No Start Date 06/06/2015 Inactive Lunesta 3 mg tablet RxNorm: 668381 1 Tablet(s) PO QHS No Start Date 0 09/20/2017 Inactive hydrocodone-acetaminophen 10 mg-325 mg Tab RxNorm: 5795649 1-2 Tablet(s) PO TID as needed for pain No Start Date 12/10/2011 Inactive Coricidin HBP Cough & Cold 4 mg-30 mg Tab RxNorm: 8388383 Tablet (s) PO PRN No Start Date 10/09/2010 Inactive Bactroban 2 % Ointment RxNorm: 412446 Application TOP QID to so res No Start Date 02/22/2012 Inactive Flonase 50 mcg/actuation Nasal [place] RxNorm: 824663 2 [place] AL QHS No Start Date 03/03/2014 Inactive Medication Administered No Medication Administered data Immunizations Vaccine Codes Date Status Tetanus, Diptheria, Pertussis CVX: 115 02/27/2014 Results Observation Observation Code Item Item Code Result Date S ervice Location MEAN GLUC 8763869 Calc Mean Gluc 209 mg/dL 02/12/2020 Unkn own GLYCOSYLATED HEMOGLOBIN TEST 23246 Hgb A1c 26237-7 8.9 % 0 02/12/2020 Unknown GFR CALC 3535918 GFR Non Afr Amr >60 mL/min 02/12/2020 Un known GFR CALC GFR Afr Amr >60 mL/min 02/12/2020 Unknow n COMPREHENSIVE METABOLIC 26285 AST 27 U/L 2019 Unknown COMPREHENSIVE METABOLIC 87945 ALT 16 U/L 2019 Unknown COMPREHENSIVE METABOLIC 26340 BUN 22 mg/dL 2019 Unknown COMPREHENSIVE METABOLIC 97520 ALBUMIN 3.9 g/dL 2019 Unknown COMPREHENSIVE METABOLIC 66398 CHLORIDE 98 mmol/L 2019 Unknown COMPREHENSIVE METABOLIC 69496 Bili Total 0.5 mg/dL 02/11 Unknown COMPREHENSIVE METABOLIC 44197 ALK PHOS 72 U/L 2019 Unknown COMPREHENSIVE METABOLIC 63527 SODIUM 137 mmol/L 02/11 Unknown COMPREHENSIVE METABOLIC 47844 CREATININE 0.96 mg/dL 12/2019 Unknown COMPREHENSIVE METABOLIC 06878 CALCIUM 9.1 mg/dL 2019 Unknown COMPREHENSIVE METABOLIC 74799 POTASSIUM 4.6 mmol/L 02/11 Unknown COMPREHENSIVE METABOLIC 55189 Total Protein 6.5 g/dL Unknown COMPREHENSIVE METABOLIC 97613 Glucose 129 mg/dL 2019 Unknown COMPREHENSIVE METABOLIC 61731 Bicarbonate 31 mmol/L 12/2019 Unknown COMPREHENSIVE METABOLIC 56021 AGAP 8 mmol/L 2019 Unknown COMPREHENSIVE METABOLIC 11004 AST 15 U/L 2019 Unknown COMPREHENSIVE METABOLIC 93557 ALT 13 U/L 2019 Unknown COMPREHENSIVE METABOLIC 27844 BUN 12 mg/dL 2019 Unknown COMPREHENSIVE METABOLIC 71243 ALBUMIN 3.9 g/dL 2019 Unknown COMPREHENSIVE METABOLIC 17553 CHLORIDE 97 mmol/L 2019 Unknown COMPREHENSIVE METABOLIC 14999 Bili Total 0.4 mg/dL 09/29 Unknown COMPREHENSIVE METABOLIC 79972 ALK PHOS 130 U/L 2019 Unknown COMPREHENSIVE METABOLIC 88125 SODIUM 136 mmol/L 09/29 Unknown COMPREHENSIVE METABOLIC 10973 CREATININE 0.92 mg/dL 09/11 Unknown COMPREHENSIVE METABOLIC 32887 CALCIUM 9.1 mg/dL 2019 Unknown COMPREHENSIVE METABOLIC 74277 POTASSIUM 4.4 mmol/L 09/29 Unknown COMPREHENSIVE METABOLIC 31575 Total Protein 6.2 g/dL Unknown COMPREHENSIVE METABOLIC 45395 Glucose 391 mg/dL 2019 Unknown COMPREHENSIVE METABOLIC 04340 Bicarbonate 30 mmol/L 09/11 Unknown COMPREHENSIVE METABOLIC 73375 AGAP 9 mmol/L 2019 Unknown ME[facility] GLUC 3613359 Calc Mean Gluc 332 mg/dL 09/29/2019 Unkn own COMPLETE BLOOD COUNT [id number] WBC 7.0 10e9/L 09/29/19 Unknown COMPLETE BLOOD COUNT [id number] RBC 4.69 10e12/L 2019 Unknown COMPLETE BLOOD COUNT [id number] HEMOGLOBIN 14.6 g/dL 09/29/19 Unknown COMPLETE BLOOD COUNT [id number] HEMATOCRIT 45.2 % 09/29/19 Unknown COMPLETE BLOOD COUNT [id number] MCV 96.4 fL 0 Unknown COMPLETE BLOOD COUNT [id number] MCH 31.1 pg 0 Unknown COMPLETE BLOOD COUNT [id number] MCHC 32.3 g/dL 0 Unknown COMPLETE BLOOD COUNT [id number] PLATELET COUNT 209 10e9/L Unknown COMPLETE BLOOD COUNT [id number] Mean Plt Volume 9.8 fL Unknown COMPLETE BLOOD COUNT [id number] Neut Auto 48.1 % 0 Unknown COMPLETE BLOOD COUNT [id number] Lymph Auto 36.5 % 09/29/19 Unknown COMPLETE BLOOD COUNT [id number] [place] Auto 8.6 % 0 Unknown COMPLETE BLOOD COUNT [id number] RDW 13.4 % 0 Unknown COMPLETE BLOOD COUNT [id number] Eos Auto 6.5 % 0 Unknown COMPLETE BLOOD COUNT [id number] Baso Auto 0.3 % 0 Unknown COMPLETE BLOOD COUNT [id number] Neutrophil Abs 3.37 10e9/L Unknown COMPLETE BLOOD COUNT [id number] Lymphocyte Abs 2.56 10e9/L Unknown COMPLETE BLOOD COUNT [id number] Monocyte Abs 0.60 10e9/L 09/11 Unknown COMPLETE BLOOD COUNT [id number] Eosinophil Abs 0.46 10e9/L Unknown COMPLETE BLOOD COUNT [id number] RDW-SD 45.9 fL 0 Unknown COMPLETE BLOOD COUNT [id number] Basophil Abs 0.02 10e9/L 09/11 Unknown LIPID GROUP 24056 Cholesterol 248 mg/dL 09/29/2019 Unkno wn LIPID GROUP 76329 Triglyceride 898 mg/dL 09/29/2019 Unkn own LIPID GROUP 05856 HDL CHOLESTEROL 41 mg/dL 09/29/2019 U nknown LIPID GROUP 59707 Chol/HDL Ratio 6.05 ratio 09/29/2019 U nknown LIPID GROUP 57303 NON-HDL Chol 207 mg/dL 09/29/2019 Unkn own LIPID GROUP 96825 LDL Cholesterol N/A Trig >400 020 Unknown GLYCOSYLATED HEMOGLOBIN TEST 00894 Hgb A1c 45596-3 13.2 % 0 09/29/2019 Unknown FREE T4 18954 T4 Free 0.75 ng/dL 09/29/2019 Unknown GFR CALC 0565547 GFR Non Afr Amr >60 mL/min 09/29/2019 Un known GFR CALC 0545467 GFR Afr Amr >60 mL/min 09/29/2019 Unknow n THYROID STIMULATING HORMONE 10891 TSH 4.245 uIU/mL 09/29/2019 Unknown COMPLETE BLOOD COUNT [id number] WBC 10.7 10e9/L 018 Unknown COMPLETE BLOOD COUNT [id number] RBC 4.59 10e12/L 2017 Unknown COMPLETE BLOOD COUNT [id number] HEMOGLOBIN 14.8 g/dL 12/11/19 18 Unknown COMPLETE BLOOD COUNT [id number] HEMATOCRIT 44.9 % 12/11/19 18 Unknown COMPLETE BLOOD COUNT [id number] MCV 97.8 fL 8 Unknown COMPLETE BLOOD COUNT [id number] MCH 32.2 pg 8 Unknown COMPLETE BLOOD COUNT [id number] MCHC 33.0 g/dL 8 Unknown COMPLETE BLOOD COUNT [id number] PLATELET COUNT 261 10e9/L 10/2017 Unknown COMPLETE BLOOD COUNT [id number] Mean Plt Volume 9.5 fL 10/2017 Unknown COMPLETE BLOOD COUNT 9950118 Neut Auto 59.9 % 8 Unknown COMPLETE BLOOD COUNT [id number] Lymph Auto 27.4 % 12/11/19 18 Unknown COMPLETE BLOOD COUNT [id number] [place] Auto 8.2 % 8 Unknown COMPLETE BLOOD COUNT [id number] RDW 13.3 % 8 Unknown COMPLETE BLOOD COUNT 1164837 Eos Auto 4.1 % 8 Unknown COMPLETE BLOOD COUNT [id number] Baso Auto 0.4 % 8 Unknown COMPLETE BLOOD COUNT [id number] Neutrophil Abs 6.41 10e9/L Unknown COMPLETE BLOOD COUNT [id number] Lymphocyte Abs 2.93 10e9/L Unknown COMPLETE BLOOD COUNT [id number] Monocyte Abs 0.88 10e9/L 10/2017 Unknown COMPLETE BLOOD COUNT [id number] Eosinophil Abs 0.44 10e9/L Unknown COMPLETE BLOOD COUNT [id number] RDW-SD 46.2 fL 8 Unknown COMPLETE BLOOD COUNT [id number] Basophil Abs 0.04 10e9/L 10/2017 Unknown THYROID STIMULATING HORMONE 17873 TSH 4.015 uIU/mL 12/10/2017 Unknown COMPREHENSIVE METABOLIC 13031 AST 25 U/L 2017 Unknown COMPREHENSIVE METABOLIC 38604 ALT 17 U/L 2017 Unknown COMPREHENSIVE METABOLIC 76572 BUN 19 mg/dL 2017 Unknown COMPREHENSIVE METABOLIC 29304 ALBUMIN 4.0 g/dL 2017 Unknown COMPREHENSIVE METABOLIC 17485 CHLORIDE 91 mmol/L 2017 Unknown COMPREHENSIVE METABOLIC 16961 Bili Total 0.5 mg/dL 12/10 Unknown COMPREHENSIVE METABOLIC 77022 ALK PHOS 75 U/L 2017 Unknown COMPREHENSIVE METABOLIC 63283 SODIUM 136 mmol/L 12/10 Unknown COMPREHENSIVE METABOLIC 76001 CREATININE 1.05 mg/dL 10/2017 Unknown COMPREHENSIVE METABOLIC 81824 CALCIUM 8.9 mg/dL 2017 Unknown COMPREHENSIVE METABOLIC 80812 POTASSIUM 3.4 mmol/L 12/10 Unknown COMPREHENSIVE METABOLIC 98614 Total Protein 6.5 g/dL Unknown COMPREHENSIVE METABOLIC 70438 Glucose 138 mg/dL 2017 Unknown COMPREHENSIVE METABOLIC 80798 Bicarbonate 35 mmol/L 10/2017 Unknown COMPREHENSIVE METABOLIC 58098 AGAP 10 mmol/L 2017 Unknown [facility] 3825393 Calc Mean Gluc 171 mg/dL 12/10/2017 Unkn own LIPID GROUP 17550 Cholesterol 204 mg/dL 12/10/2017 Unkno wn LIPID GROUP 75679 Triglyceride 411 mg/dL 12/10/2017 Unkn own L[facility] GROUP 77288 HDL CHOLESTEROL 50 mg/dL 12/10/2017 U nknown LIPID GROUP 01892 Chol/HDL Ratio 4.08 ratio 12/10/2017 U nknown LIP[facility] GROUP 30262 NON-HDL Chol 154 mg/dL 12/10/2017 Unkn own LIP[facility] GROUP 35223 LDL Cholesterol N/A Trig >400 018 Unknown GLYCOSYLATED HEMOGLOBIN TEST 62775 Hgb A1c 81942-7 7.6 % 0 12/10/2017 Unknown FREE T4 72951 T4 Free 1.40 ng/dL 12/10/2017 Unknown GFR CALC 8061216 GFR Non Afr Amr 55 mL/min 12/10/2017 Unk nown GFR CALC 4862297 GFR Afr Amr >60 mL/min 12/10/2017 Unknow n GFR CALC 1754473 GFR Non Afr Amr 48 mL/min 06/28/2017 Unk nown GFR CALC 2305114 GFR Afr Amr 59 mL/min 06/28/2017 Unknown COMPREHENSIVE METABOLIC 95546 AST 32 U/L 2016 Unknown COMPREHENSIVE METABOLIC 88659 ALT 22 U/L 2016 Unknown COMPREHENSIVE METABOLIC 58621 BUN 23 mg/dL 2016 Unknown COMPREHENSIVE METABOLIC 95270 ALBUMIN 4.7 g/dL 2016 Unknown COMPREHENSIVE METABOLIC 49800 CHLORIDE 89 mmol/L 2016 Unknown COMPREHENSIVE METABOLIC 99019 Bili Total 0.5 mg/dL 06/28 Unknown COMPREHENSIVE METABOLIC 36102 ALK PHOS 90 U/L 2016 Unknown COMPREHENSIVE METABOLIC 81254 SODIUM 135 mmol/L 06/28 Unknown COMPREHENSIVE METABOLIC 40083 CREATININE 1.18 mg/dL 06/10 Unknown COMPREHENSIVE METABOLIC 81716 CALCIUM 9.7 mg/dL 2016 Unknown COMPREHENSIVE METABOLIC 66968 POTASSIUM 3.5 mmol/L 06/28 Unknown COMPREHENSIVE METABOLIC 42963 Total Protein 7.7 g/dL Unknown COMPREHENSIVE METABOLIC 89868 Glucose 129 mg/dL 2016 Unknown COMPREHENSIVE METABOLIC 86188 Bicarbonate 34 mmol/L 06/10 Unknown COMPREHENSIVE METABOLIC 85872 AGAP 12 mmol/L 2016 Unknown LIP[facility] GROUP 11603 HDL TEST 64 MG/DL 08/27/2014 Unknown L[facility] GROUP 58727 TRIG 222 MG/DL 08/27/2014 Unknown LIP[facility] GROUP 78270 TEST LDL 209 MG/DL 08/27/2014 Unknown LIP[facility] GROUP 48480 CHOL 317 MG/DL 08/27/2014 Unknown LIPID GROUP 67621 RCHOL/HDL 4.95 RATIO 08/27/2014 Unknow n LIPID GROUP 38507 NON-HDL CH 253 MG/DL 08/27/2014 Unknow n GFR CALC 1762833 GFR AA >60 ML/MIN 08/27/2014 Unknown GFR CALC 6478864 GFR NON-AA >60 ML/MIN 08/27/2014 Unknown COMPLETE BLOOD COUNT [id number] WBC 7.0 10e9/L 08/27/20 14 Unknown COMPLETE BLOOD COUNT [id number] RBC 4.98 10e12/L 2013 Unknown COMPLETE BLOOD COUNT 0274810 HGB 15.6 g/dL 4 Unknown COMPLETE BLOOD COUNT 3387687 HCT DET 46.5 % 4 Unknown COMPLETE BLOOD COUNT 1608333 MCV 93.4 fL 4 Unknown COMPLETE BLOOD COUNT [id number] MCH 31.3 pg 4 Unknown COMPLETE BLOOD COUNT 4030377 MCHC 33.5 g/dL 4 Unknown COMPLETE BLOOD COUNT [id number] PLT 309 10e9/L 08/27/20 14 Unknown COMPLETE BLOOD COUNT 1022756 MPV 9.6 fL 4 Unknown COMPLETE BLOOD COUNT 6480700 CADEN % 57.2 % 4 Unknown COMPLETE BLOOD COUNT 9759368 LY % 33.2 % 4 Unknown COMPLETE BLOOD COUNT 9667904 MON % 7.3 % 4 Unknown COMPLETE BLOOD COUNT [id number] EOS % 2.0 % 4 Unknown COMPLETE BLOOD COUNT 5477141 BASO % 0.3 % 4 Unknown COMPLETE BLOOD COUNT 3687714 RDW 13.7 % 4 Unknown COMPLETE BLOOD COUNT [id number] ABS CADEN 4.00 10e9/L 014 Unknown COMPLETE BLOOD COUNT [id number] ABS LYMPH 2.32 10e9/L 014 Unknown COMPLETE BLOOD COUNT [id number] ABS MONO 0.51 10e9/L 014 Unknown COMPLETE BLOOD COUNT [id number] ABS EOS 0.14 10e9/L 014 Unknown COMPLETE BLOOD COUNT [id number] ABS BASO 0.02 10e9/L 014 Unknown COMPLETE BLOOD COUNT [id number] RDW-SD 45.1 fL 4 Unknown COMPREHENSIVE METABOLIC 42814 AST 13 U/L 2013 Unknown COMPREHENSIVE METABOLIC 97640 ALT 11 IU/L 2013 Unknown COMPREHENSIVE METABOLIC 41542 BUN 23 MG/DL 2013 Unknown COMPREHENSIVE METABOLIC 29978 ALBUMIN 4.4 GM/DL 2013 Unknown COMPREHENSIVE METABOLIC 53491 CHLORIDE 99 MMOL/L 2013 Unknown COMPREHENSIVE METABOLIC 09545 BILI TOT 0.5 MG/DL 2013 Unknown COMPREHENSIVE METABOLIC 82939 ALK PHOS 56 U/L 2013 Unknown COMPREHENSIVE METABOLIC 90320 SODIUM 138 MMOL/L 08/27 Unknown COMPREHENSIVE METABOLIC 06272 CREATININE 0.95 MG/DL 08/10 Unknown COMPREHENSIVE METABOLIC 54066 CALCIUM 9.8 MG/DL 2013 Unknown COMPREHENSIVE METABOLIC 62848 POTASSIUM 3.5 MMOL/L 08/27 Unknown COMPREHENSIVE METABOLIC 93945 PROT TOT 6.8 GM/DL 2013 Unknown COMPREHENSIVE METABOLIC 17069 Glucose 90 MG/DL 2013 Unknown COMPREHENSIVE METABOLIC 23652 BICARB 34 MMOL/L 2013 Unknown COMPREHENSIVE METABOLIC 01265 ANION GAP 5 MEQ/L 2013 Unknown LIPASE 20061 LIPASE 11 IU/L 07/21/2014 Unknown AMYLASE 13779 AMYLASE 39 IU/L 07/21/2014 Unknown HEMOGLOBIN A1C (GLYCOSYLATED) 6809462 A1C [facility] 23629-4 6.2 % 03/05/2013 Unknown THYROID STIMULATING HORMONE 64635 TSH 6.986 uIU/ML 03/05/2013 Unknown COMPLETE BLOOD COUNT 9237394 WBC 12.7 10e9/L 013 Unknown COMPLETE BLOOD COUNT [id number] RBC 4.53 10e12/L 2012 Unknown COMPLETE BLOOD COUNT 8361165 HGB 14.7 g/dL 3 Unknown COMPLETE BLOOD COUNT 8376252 HCT DET 43.1 % 3 Unknown COMPLETE BLOOD COUNT 1815975 MCV 95.1 fL 3 Unknown COMPLETE BLOOD COUNT 5893670 MCH 32.5 pg 3 Unknown COMPLETE BLOOD COUNT 7233135 MCHC 34.1 g/dL 3 Unknown COMPLETE BLOOD COUNT 2995806 PLT 346 10e9/L 03/05/20 13 Unknown COMPLETE BLOOD COUNT [id number] MPV 9.5 fL 3 Unknown COMPLETE BLOOD COUNT 7646677 CADEN % 67.6 % 3 Unknown COMPLETE BLOOD COUNT 7848591 LY % 22.1 % 3 Unknown COMPLETE BLOOD COUNT 1983626 MON % 6.6 % 3 Unknown COMPLETE BLOOD COUNT 4555653 EOS % 3.3 % 3 Unknown COMPLETE BLOOD COUNT 8972248 BASO % 0.4 % 3 Unknown COMPLETE BLOOD COUNT 1199572 RDW 14.0 % 3 Unknown COMPLETE BLOOD COUNT 6207261 ABS CADEN 8.59 10e9/L 013 Unknown COMPLETE BLOOD COUNT [id number] ABS LYMPH 2.81 10e9/L 013 Unknown COMPLETE BLOOD COUNT [id number] ABS MONO 0.84 10e9/L 013 Unknown COMPLETE BLOOD COUNT [id number] ABS EOS 0.42 10e9/L 013 Unknown COMPLETE BLOOD COUNT [id number] ABS BASO 0.05 10e9/L 013 Unknown COMPLETE BLOOD COUNT 3763183 RDW-SD 46.0 fL 3 Unknown FREE T4 75826 FREE T4 1.14 NG/DL 03/05/2013 Unknown COMPREHENSIVE METABOLIC 67426 AST 17 U/L 2012 Unknown COMPREHENSIVE METABOLIC 57555 ALT 12 IU/L 2012 Unknown COMPREHENSIVE METABOLIC 66499 BUN 24 MG/DL 2012 Unknown COMPREHENSIVE METABOLIC 81787 ALBUMIN 4.2 GM/DL 2012 Unknown COMPREHENSIVE METABOLIC 84777 CHLORIDE 93 MMOL/L 2012 Unknown COMPREHENSIVE METABOLIC 92108 BILI TOT 0.5 MG/DL 2012 Unknown COMPREHENSIVE METABOLIC 68201 ALK PHOS 75 U/L 2012 Unknown COMPREHENSIVE METABOLIC 19830 SODIUM 141 MMOL/L 03/05 Unknown COMPREHENSIVE METABOLIC 12198 CREATININE 1.36 MG/DL 02/09 Unknown COMPREHENSIVE METABOLIC 65162 CALCIUM 9.2 MG/DL 2012 Unknown COMPREHENSIVE METABOLIC 88446 POTASSIUM 3.1 MMOL/L 03/05 Unknown COMPREHENSIVE METABOLIC 88294 PROT TOT 6.9 GM/DL 2012 Unknown COMPREHENSIVE METABOLIC 80154 Glucose 123 MG/DL 2012 Unknown COMPREHENSIVE METABOLIC 53842 BICARB 36 MMOL/L 2012 Unknown COMPREHENSIVE METABOLIC 39079 ANION GAP 12 MEQ/L 2012 Unknown GFR CALC 8073080 GFR AA 51.0L ML/MIN 03/05/2013 Unknow n GFR CALC 4529816 GFR NON-AA 42.0L ML/MIN 03/05/2013 Unkno wn COMPREHENSIVE METABOLIC 95326 AST 14 U/L 2012 Unknown COMPREHENSIVE METABOLIC 10639 ALT 11 IU/L 2012 Unknown COMPREHENSIVE METABOLIC 40035 BUN 16 MG/DL 2012 Unknown COMPREHENSIVE METABOLIC 81988 ALBUMIN 4.2 GM/DL 2012 Unknown COMPREHENSIVE METABOLIC 34022 CHLORIDE 98 MMOL/L 2012 Unknown COMPREHENSIVE METABOLIC 74074 BILI TOT 0.4 MG/DL 2012 Unknown COMPREHENSIVE METABOLIC 42804 ALK PHOS 77 U/L 2012 Unknown COMPREHENSIVE METABOLIC 60834 SODIUM 139 MMOL/L 09/25 Unknown COMPREHENSIVE METABOLIC 00965 CREATININE 0.86 MG/DL 09/10 Unknown COMPREHENSIVE METABOLIC 56719 CALCIUM 9.5 MG/DL 2012 Unknown COMPREHENSIVE METABOLIC 90393 POTASSIUM 3.8 MMOL/L 09/25 Unknown COMPREHENSIVE METABOLIC 55290 PROT TOT 6.8 GM/DL 2012 Unknown COMPREHENSIVE METABOLIC 78274 Glucose 91 MG/DL 2012 Unknown COMPREHENSIVE METABOLIC 64348 BICARB 32 MMOL/L 2012 Unknown COMPREHENSIVE METABOLIC 21020 ANION GAP 9 MEQ/L 2012 Unknown FREE T4 18275 FREE T4 0.98 NG/DL 09/25/2012 Unknown THYROID STIMULATING HORMONE 34668 TSH 1.736 uIU/ML 09/25/2012 Unknown C-REACTIVE PROTEIN (CRP) QUANT 21811 CRP 2.3 MG/DL 09/25/2012 Unknown COMPLETE BLOOD COUNT 2786802 WBC 11.9 10e9/L 013 Unknown COMPLETE BLOOD COUNT [id number] RBC 4.87 10e12/L 2012 Unknown COMPLETE BLOOD COUNT [id number] HGB 15.1 g/dL 3 Unknown COMPLETE BLOOD COUNT 4096196 HCT DET 44.8 % 3 Unknown COMPLETE BLOOD COUNT 2848402 MCV 92.0 fL 3 Unknown COMPLETE BLOOD COUNT 9113417 MCH 31.0 pg 3 Unknown COMPLETE BLOOD COUNT 2980434 MCHC 33.7 g/dL 3 Unknown COMPLETE BLOOD COUNT 0154377 PLT 343 10e9/L 09/25/19 13 Unknown COMPLETE BLOOD COUNT [id number] MPV 9.0 fL 3 Unknown COMPLETE BLOOD COUNT [id number] CADEN % 68.2 % 3 Unknown COMPLETE BLOOD COUNT [id number] LY % 22.4 % 3 Unknown COMPLETE BLOOD COUNT [id number] MON % 6.4 % 3 Unknown COMPLETE BLOOD COUNT [id number] EOS % 2.7 % 3 Unknown COMPLETE BLOOD COUNT [id number] BASO % 0.3 % 3 Unknown COMPLETE BLOOD COUNT [id number] RDW 13.8 % 3 Unknown COMPLETE BLOOD COUNT [id number] ABS CADEN 8.12 10e9/L 013 Unknown COMPLETE BLOOD COUNT [id number] ABS LYMPH 2.67 10e9/L 013 Unknown COMPLETE BLOOD COUNT [id number] ABS MONO 0.76 10e9/L 013 Unknown COMPLETE BLOOD COUNT [id number] ABS EOS 0.32 10e9/L 013 Unknown COMPLETE BLOOD COUNT [id number] ABS BASO 0.04 10e9/L 013 Unknown COMPLETE BLOOD COUNT [id number] RDW-SD 45.6 fL 3 Unknown GFR CALC [id number] GFR AA >60 ML/MIN 09/25/2012 Unknown GFR CALC [id number] GFR NON-AA >60 ML/MIN 09/25/2012 Unknown ERYTHROCYTE SEDIMENTATION RATE [id number] ESR 19 MM/HR 05/06/2012 Unknown VITAMIN B 12 FOLIC ACID [id number] VIT B 12 922 PG/ML 04/11 Unknown VITAMIN B 12 FOLIC ACID [id number] FOLIC ACID 13.6 NG/ML Unknown URIC ACID [id number] URIC ACID 7.8 MG/DL 05/06/2012 Unknown COMPLETE BLOOD COUNT 74457 WBC 11.9 10e9/L 012 Unknown COMPLETE BLOOD COUNT 23825 RBC 5.30 10e12/L 2011 Unknown COMPLETE BLOOD COUNT 07918 HGB 16.6 g/dL 2 Unknown COMPLETE BLOOD COUNT 44314 HCT DET 47.2 % 2 Unknown COMPLETE BLOOD COUNT 27595 MCV 89.1 fL 2 Unknown COMPLETE BLOOD COUNT 70232 MCH 31.3 pg 2 Unknown COMPLETE BLOOD COUNT 96451 MCHC 35.2 g/dL 2 Unknown COMPLETE BLOOD COUNT 93108 PLT 362 10e9/L 05/06/20 12 Unknown COMPLETE BLOOD COUNT 79642 MPV 9.4 fL 2 Unknown COMPLETE BLOOD COUNT 93401 CADEN % 68.2 % 2 Unknown COMPLETE BLOOD COUNT 99644 LY % 22.0 % 2 Unknown COMPLETE BLOOD COUNT 11788 MON % 6.9 % 2 Unknown COMPLETE BLOOD COUNT 56103 EOS % 2.6 % 2 Unknown COMPLETE BLOOD COUNT 84450 BASO % 0.3 % 2 Unknown COMPLETE BLOOD COUNT 72505 RDW 12.8 % 2 Unknown COMPLETE BLOOD COUNT 77130 ABS CADEN 8.12 10e9/L 012 Unknown COMPLETE BLOOD COUNT 54306 ABS LYMPH 2.62 10e9/L 012 Unknown COMPLETE BLOOD COUNT 73554 ABS MONO 0.82 10e9/L 012 Unknown COMPLETE BLOOD COUNT 26043 ABS EOS 0.31 10e9/L 012 Unknown COMPLETE BLOOD COUNT 47729 ABS BASO 0.04 10e9/L 012 Unknown COMPLETE BLOOD COUNT 28884 RDW-SD 41.5 fL 2 Unknown GFR CALC [id number] GFR AA >60 ML/MIN 05/06/2012 Unknown GFR CALC [id number] GFR NON-AA 58.0L ML/MIN 05/06/2012 Unkno wn FREE T4 90357 FREE T4 1.15 NG/DL 05/06/2012 Unknown THYROID STIMULATING HORMONE 91491 TSH 1.568 uIU/ML 05/06/2012 Unknown COMPREHENSIVE METABOLIC 66721 AST 20 U/L 2011 Unknown COMPREHENSIVE METABOLIC 44155 ALT 12 IU/L 2011 Unknown COMPREHENSIVE METABOLIC 78909 BUN 20 MG/DL 2011 Unknown COMPREHENSIVE METABOLIC 41301 ALBUMIN 4.5 GM/DL 2011 Unknown COMPREHENSIVE METABOLIC 77425 CHLORIDE 91 MMOL/L 2011 Unknown COMPREHENSIVE METABOLIC 73273 BILI TOT 0.4 MG/DL 2011 Unknown COMPREHENSIVE METABOLIC 99665 ALK PHOS 73 U/L 2011 Unknown COMPREHENSIVE METABOLIC 73168 SODIUM 139 MMOL/L 05/06 Unknown COMPREHENSIVE METABOLIC 66188 CREATININE 1.02 MG/DL 04/11 Unknown COMPREHENSIVE METABOLIC 27048 CALCIUM 9.7 MG/DL 2011 Unknown COMPREHENSIVE METABOLIC 35919 POTASSIUM 3.1 MMOL/L 05/06 Unknown COMPREHENSIVE METABOLIC 38788 PROT TOT 7.3 GM/DL 2011 Unknown COMPREHENSIVE METABOLIC 34326 Glucose 118 MG/DL 2011 Unknown COMPREHENSIVE METABOLIC 23928 BICARB 33 MMOL/L 2011 Unknown COMPREHENSIVE METABOLIC 53463 ANION GAP 15 MEQ/L 2011 Unknown Procedures Procedure Codes Date COMPREHEN METABOLIC PANEL CPT-4: 90057 02/12/2020 A1C HPLC CPT-4: 06852 02/12/2020 ROUTINE VENIPUNCTURE CPT-4: 08817 09/29/2019 URINALYSIS NONAUTO W/O SCOPE CPT-4: 86965 09/29/2019 COMPREHEN METABOLIC PANEL CPT-4: 38546 09/29/2019 LIPID PANEL CPT-4: 69183 09/29/2019 A1C HPLC CPT-4: 61877 09/29/2019 ASSAY OF FREE THYROXINE CPT-4: 69466 09/29/2019 ASSAY THYROID STIM HORMONE CPT-4: 97965 09/29/2019 COMPLETE CBC W/AUTO DIFF WBC CPT-4: 36714 09/29/2019 URINALYSIS NONAUTO W/O SCOPE CPT-4: 91932 09/30/2018 MICROALBUMIN QUANTITATIVE CPT-4: 99856 09/30/2018 CEFTRIAXONE SODIUM INJECTION CPT-4: J0696 06/19/2018 THER/PROPH/DIAG INJ SC/IM CPT-4: 81999 06/19/2018 CEFTRIAXONE SODIUM INJECTION CPT-4: J0696 06/17/2018 THER/PROPH/DIAG INJ SC/IM CPT-4: 38567 06/17/2018 THER/PROPH/DIAG INJ SC/IM CPT-4: 97192 05/16/2018 KETOROLAC TROMETHAMINE INJ CPT-4: J1885 05/16/2018 ONDANSETRON HCL INJECTION CPT-4: J2405 05/16/2018 THER/PROPH/DIAG INJ SC/IM CPT-4: 00493 05/16/2018 ROUTINE VENIPUNCTURE CPT-4: 12074 03/20/2018 COMPREHEN METABOLIC PANEL CPT-4: 36329 03/20/2018 DEXAMETHASONE SODIUM PHOS CPT-4: J1100 02/11/2018 THER/PROPH/DIAG INJ SC/IM CPT-4: 43929 02/11/2018 TRIAMCINOLONE ACET INJ NOS CPT-4: J3301 02/11/2018 CEFTRIAXONE SODIUM INJECTION CPT-4: J0696 02/01/2018 THER/PROPH/DIAG INJ SC/IM CPT-4: 89299 02/01/2018 CEFTRIAXONE SODIUM INJECTION CPT-4: J0696 01/30/2018 THER/PROPH/DIAG INJ SC/IM CPT-4: 81242 01/30/2018 ROUTINE VENIPUNCTURE CPT-4: 73770 12/10/2017 ASSAY OF FREE THYROXINE CPT-4: 16138 12/10/2017 ASSAY THYROID STIM HORMONE CPT-4: 61655 12/10/2017 COMPREHEN METABOLIC PANEL CPT-4: 76572 12/10/2017 COMPLETE CBC W/AUTO DIFF WBC CPT-4: 71581 12/10/2017 LIPID PANEL CPT-4: 70548 12/10/2017 A1C HPLC CPT-4: 14900 12/10/2017 CEFTRIAXONE SODIUM INJECTION CPT-4: J0696 12/10/2017 THER/PROPH/DIAG INJ SC/IM CPT-4: 47737 12/10/2017 CEFTRIAXONE SODIUM INJECTION CPT-4: J0696 12/07/2017 THER/PROPH/DIAG INJ SC/IM CPT-4: 00032 12/07/2017 DEXAMETHASONE SODIUM PHOS CPT-4: J1100 12/07/2017 THER/PROPH/DIAG INJ SC/IM CPT-4: 76226 12/07/2017 CEFTRIAXONE SODIUM INJECTION CPT-4: J0696 10/08/2017 THER/PROPH/DIAG INJ SC/IM CPT-4: 48046 10/08/2017 CEFTRIAXONE SODIUM INJECTION CPT-4: J0696 09/21/2017 THER/PROPH/DIAG INJ SC/IM CPT-4: 77567 09/21/2017 CEFTRIAXONE SODIUM INJECTION CPT-4: J0696 09/20/2017 THER/PROPH/DIAG INJ SC/IM CPT-4: 17887 09/20/2017 REMOVAL OF NAIL PLATE CPT-4: 08425 08/29/2017 THER/PROPH/DIAG INJ SC/IM CPT-4: 81344 08/29/2017 TRIAMCINOLONE ACET INJ NOS CPT-4: J3301 08/29/2017 CEFTRIAXONE SODIUM INJECTION CPT-4: J0696 08/29/2017 THER/PROPH/DIAG INJ SC/IM CPT-4: 00705 08/29/2017 DESTRUCT PREMALG LESION (Cryosurgery) CPT-4: 81609 ROUTINE VENIPUNCTURE CPT-4: 08397 06/27/2017 ASSAY OF FREE THYROXINE CPT-4: 47245 06/27/2017 ASSAY THYROID STIM HORMONE CPT-4: 34856 06/27/2017 COMPREHEN METABOLIC PANEL CPT-4: 64613 06/27/2017 COMPLETE CBC W/AUTO DIFF WBC CPT-4: 40903 06/27/2017 EXC TR-EXT B9+REECE 0.5 CM< CPT-4: 35931 01/24/2017 THER/PROPH/DIAG INJ SC/IM CPT-4: 84492 08/02/2016 DEXAMETHASONE SODIUM PHOS CPT-4: J1100 08/02/2016 DESTRUCT PREMALG LESION (Cryosurgery) CPT-4: 12858 EXC TR-EXT B9+REECE 0.5 CM< CPT-4: 43130 08/01/2016 AEROBIC WOUND CULTURE & STN CPT-4: 30554 07/06/2016 CEFTRIAXONE SODIUM INJECTION CPT-4: J0696 05/25/2016 THER/PROPH/DIAG INJ SC/IM CPT-4: 48776 05/25/2016 THER/PROPH/DIAG INJ SC/IM CPT-4: 40054 04/26/2016 DEXAMETHASONE SODIUM PHOS CPT-4: J1100 04/26/2016 CEFTRIAXONE SODIUM INJECTION CPT-4: J0696 04/26/2016 THER/PROPH/DIAG INJ SC/IM CPT-4: 98926 04/26/2016 THER/PROPH/DIAG INJ SC/IM CPT-4: 01418 02/09/2016 TRIAMCINOLONE ACET INJ NOS CPT-4: J3301 02/09/2016 URINALYSIS NONAUTO W/O SCOPE CPT-4: 52452 01/24/2016 URINE CULTURE/ COLONY COUNT CPT-4: 87385 01/24/2016 THER/PROPH/DIAG INJ SC/IM CPT-4: 49247 12/08/2015 TRIAMCINOLONE ACET INJ NOS CPT-4: J3301 12/08/2015 THER/PROPH/DIAG INJ SC/IM CPT-4: 16964 10/07/2015 TRIAMCINOLONE ACET INJ NOS CPT-4: J3301 10/07/2015 DESTRUCT PREMALG LESION (Cryosurgery) CPT-4: 57934 THER/PROPH/DIAG INJ SC/IM CPT-4: 95327 03/16/2015 METHYLPREDNISOLONE 40 MG INJ CPT-4: J1030 03/16/2015 DESTRUCT PREMALG LESION (Cryosurgery) CPT-4: 37628 THER/PROPH/DIAG INJ SC/IM CPT-4: 27549 09/11/2014 METHYLPREDNISOLONE 40 MG INJ CPT-4: J1030 09/11/2014 TRIAMCINOLONE ACET INJ NOS CPT-4: J3301 09/11/2014 CEFTRIAXONE SODIUM INJECTION CPT-4: J0696 09/11/2014 THER/PROPH/DIAG INJ SC/IM CPT-4: 59073 09/11/2014 ROUTINE VENIPUNCTURE CPT-4: 48157 08/27/2014 COMPREHEN METABOLIC PANEL CPT-4: 43440 08/27/2014 COMPLETE CBC W/AUTO DIFF WBC CPT-4: 09948 08/27/2014 LIPID PANEL CPT-4: 93225 08/27/2014 ROUTINE VENIPUNCTURE CPT-4: 33923 07/21/2014 ASSAY OF AMYLASE CPT-4: 38089 07/21/2014 ASSAY OF LIPASE CPT-4: 14046 07/21/2014 THER/PROPH/DIAG INJ SC/IM CPT-4: 87503 07/15/2014 TRIAMCINOLONE ACET INJ NOS CPT-4: J3301 07/15/2014 ROUTINE VENIPUNCTURE CPT-4: 60141 05/14/2014 ASSAY OF FREE THYROXINE CPT-4: 05409 05/14/2014 ASSAY THYROID STIM HORMONE CPT-4: 40688 05/14/2014 COMPREHEN METABOLIC PANEL CPT-4: 42105 05/14/2014 COMPLETE CBC W/AUTO DIFF WBC CPT-4: 45017 05/14/2014 LIPID PANEL CPT-4: 30478 05/14/2014 CEFTRIAXONE SODIUM INJECTION CPT-4: J0696 04/21/2014 THER/PROPH/DIAG INJ SC/IM CPT-4: 34079 04/21/2014 THER/PROPH/DIAG INJ SC/IM CPT-4: 45502 04/21/2014 TRIAMCINOLONE ACET INJ NOS CPT-4: J3301 04/21/2014 THER/PROPH/DIAG INJ SC/IM CPT-4: 14623 03/04/2014 METHYLPREDNISOLONE 40 MG INJ CPT-4: J1030 03/04/2014 TRIAMCINOLONE ACET INJ NOS CPT-4: J3301 03/04/2014 CEFTRIAXONE SODIUM INJECTION CPT-4: J0696 03/04/2014 THER/PROPH/DIAG INJ SC/IM CPT-4: 96800 03/04/2014 TDAP VACCINE 7 YRS/> IM CPT-4: 61613 02/27/2014 IMMUNIZATION ADMIN CPT-4: 99375 02/27/2014 DESTRUCT PREMALG LESION (Cryosurgery) CPT-4: 02601 DESTRUCT PREMALG LES 2-14 CPT-4: 21607 01/13/2014 THER/PROPH/DIAG INJ SC/IM CPT-4: 89915 10/21/2013 METHYLPREDNISOLONE 40 MG INJ CPT-4: J1030 10/21/2013 TRIAMCINOLONE ACET INJ NOS CPT-4: J3301 10/21/2013 CEFTRIAXONE SODIUM INJECTION CPT-4: J0696 08/27/2013 THER/PROPH/DIAG INJ SC/IM CPT-4: 16441 08/27/2013 THER/PROPH/DIAG INJ SC/IM CPT-4: 58553 08/27/2013 METHYLPREDNISOLONE 40 MG INJ CPT-4: J1030 08/27/2013 TRIAMCINOLONE ACET INJ NOS CPT-4: J3301 08/27/2013 THER/PROPH/DIAG INJ SC/IM CPT-4: 43566 06/23/2013 METHYLPREDNISOLONE 40 MG INJ CPT-4: J1030 06/23/2013 TRIAMCINOLONE ACET INJ NOS CPT-4: J3301 06/23/2013 THER/PROPH/DIAG INJ SC/IM CPT-4: 37830 05/26/2013 METHYLPREDNISOLONE 40 MG INJ CPT-4: J1030 05/26/2013 TRIAMCINOLONE ACET INJ NOS CPT-4: J3301 05/26/2013 ROUTINE VENIPUNCTURE CPT-4: 44637 03/05/2013 ASSAY OF FREE THYROXINE CPT-4: 57217 03/05/2013 ASSAY THYROID STIM HORMONE CPT-4: 15830 03/05/2013 COMPREHEN METABOLIC PANEL CPT-4: 22772 03/05/2013 COMPLETE CBC W/AUTO DIFF WBC CPT-4: 78565 03/05/2013 A1C GLYCOSYLATED HEMOGLOBIN TEST CPT-4: 80565 013 DRAIN/INJECT JOINT/BURSA CPT-4: 77082 12/04/2012 METHYLPREDNISOLONE 40 MG INJ CPT-4: J1030 12/04/2012 TRIAMCINOLONE ACET INJ NOS CPT-4: J3301 12/04/2012 CEFTRIAXONE SODIUM INJECTION CPT-4: J0696 11/21/2012 THER/PROPH/DIAG INJ SC/IM CPT-4: 46112 11/21/2012 THER/PROPH/DIAG INJ SC/IM CPT-4: 05584 10/14/2012 METHYLPREDNISOLONE 40 MG INJ CPT-4: J1030 10/14/2012 TRIAMCINOLONE ACET INJ NOS CPT-4: J3301 10/14/2012 URINALYSIS NONAUTO W/O SCOPE CPT-4: 65834 09/27/2012 ROUTINE VENIPUNCTURE CPT-4: 29497 09/25/2012 ASSAY OF FREE THYROXINE CPT-4: 45782 09/25/2012 ASSAY THYROID STIM HORMONE CPT-4: 60087 09/25/2012 COMPREHEN METABOLIC PANEL CPT-4: 46656 09/25/2012 COMPLETE CBC W/AUTO DIFF WBC CPT-4: 42037 09/25/2012 C-REACTIVE PROTEIN CPT-4: 07657 09/25/2012 THER/PROPH/DIAG INJ SC/IM CPT-4: 32774 08/29/2012 METHYLPREDNISOLONE 40 MG INJ CPT-4: J1030 08/29/2012 TRIAMCINOLONE ACET INJ NOS CPT-4: J3301 08/29/2012 DESTRUCT PREMALG LESION (Cryosurgery) CPT-4: 47893 THER/PROPH/DIAG INJ SC/IM CPT-4: 77625 05/06/2012 METHYLPREDNISOLONE 40 MG INJ CPT-4: J1030 05/06/2012 TRIAMCINOLONE ACET INJ NOS CPT-4: J3301 05/06/2012 VITAMIN B 12 FOLIC ACID CPT-4: 25974|39541 05/06/2012 RBC SED RATE AUTOMATED CPT-4: 11588 05/06/2012 ROUTINE VENIPUNCTURE CPT-4: 52744 05/06/2012 ASSAY OF FREE THYROXINE CPT-4: 22133 05/06/2012 ASSAY THYROID STIM HORMONE CPT-4: 40205 05/06/2012 COMPREHEN METABOLIC PANEL CPT-4: 48586 05/06/2012 COMPLETE CBC W/AUTO DIFF WBC CPT-4: 29526 05/06/2012 ASSAY OF BLOOD/URIC ACID CPT-4: 02217 05/06/2012 THER/PROPH/DIAG INJ SC/IM CPT-4: 28107 03/19/2012 KETOROLAC TROMETHAMINE INJ CPT-4: J1885 03/19/2012 KETOROLAC TROMETHAMINE INJ CPT-4: J1885 01/30/2012 THER/PROPH/DIAG INJ SC/IM CPT-4: 97241 01/30/2012 PROMETHAZINE HCL INJECTION CPT-4: J2550 01/30/2012 THER/PROPH/DIAG INJ SC/IM CPT-4: 26505 01/24/2012 METHYLPREDNISOLONE 40 MG INJ CPT-4: J1030 01/24/2012 TRIAMCINOLONE ACET INJ NOS CPT-4: J3301 01/24/2012 THER/PROPH/DIAG INJ SC/IM CPT-4: 15356 09/13/2011 KETOROLAC TROMETHAMINE INJ CPT-4: J1885 09/13/2011 THER/PROPH/DIAG INJ SC/IM CPT-4: 55688 09/13/2011 PROMETHAZINE HCL INJECTION CPT-4: J2550 09/13/2011 CEFTRIAXONE SODIUM INJECTION CPT-4: J0696 07/20/2011 THER/PROPH/DIAG INJ SC/IM CPT-4: 33990 07/20/2011 THER/PROPH/DIAG INJ SC/IM CPT-4: 21374 07/20/2011 METHYLPREDNISOLONE INJECTION CPT-4: J2930 07/20/2011 URINALYSIS NONAUTO W/O SCOPE CPT-4: 57595 05/09/2011 CEFTRIAXONE SODIUM INJECTION CPT-4: J0696 05/09/2011 THER/PROPH/DIAG INJ SC/IM CPT-4: 36970 05/09/2011 THER/PROPH/DIAG INJ SC/IM CPT-4: 29704 05/09/2011 PROMETHAZINE HCL INJECTION CPT-4: J2550 05/09/2011 HYDRATION IV INFUSION INIT CPT-4: 01540 05/09/2011 DESTRUCT PREMALG LESION (Cryosurgery) CPT-4: 07502 DESTRUCT PREMALG LES 2-14 CPT-4: 96362 07/19/2010 REMOVAL OF SKIN TAGS <W/15 CPT-4: 30479 05/30/2010 THER/PROPH/DIAG INJ SC/IM CPT-4: 88008 04/05/2010 CEFTRIAXONE SODIUM INJECTION CPT-4: J0696 04/05/2010 TRIAMCINOLONE ACET INJ NOS CPT-4: J3301 04/05/2010 METHYLPREDNISOLONE 40 MG INJ CPT-4: J1030 04/05/2010 THER/PROPH/DIAG INJ SC/IM CPT-4: 29401 04/05/2010 TRIAMCINOLONE ACET INJ NOS CPT-4: J3301 03/09/2010 METHYLPREDNISOLONE 40 MG INJ CPT-4: J1030 03/09/2010 THER/PROPH/DIAG INJ SC/IM CPT-4: 53219 03/09/2010 THER/PROPH/DIAG INJ SC/IM CPT-4: 14457 03/09/2010 CEFTRIAXONE SODIUM INJECTION CPT-4: J0696 03/09/2010 [...] 1: 132/80 Code: 8480-6 BMI: 35.8 Code: 43260-3 Heart Rate 1: 88 bpm Height: 5'4" Respiratory Rate: 20 bpm SpO2: 95% Tempera ture: 36.9 (C) / 98.5 (F) Weight: 210 lbs 05/28/2019 Blood Pressure 1: 126/82 Code: 8480-6 BMI: 35.0 Code: 86834-5 Heart Rate 1: 88 bpm Height: 5'4" [...] 1: 128/90 Code: 8480-6 BMI: 37.2 Code: 02888-7 Heart Rate 1: 84 bpm Height: 5'4" Respiratory Rate: 20 bpm SpO2: 95% Tempera ture: 36.6 (C) / 97.8 (F) Weight: 217 lbs 08/27/2018 Blood Pressure 1: 128/88 Code: 8480-6 BMI: 38.3 Code: 54217-5 Heart Rate 1: 84 bpm Height: 5'4" [...] 1: 119/72 Code: 8480-6 BMI: 37.4 Code: 81160-5 Heart Rate 1: 82 bpm Height: 5'4" Respiratory Rate: 12 bpm SpO2: 94% Tempera ture: 35.2 (C) / 95.4 (F) Weight: 218 lbs 12/18/2017 Blood Pressure 1: 128/86 Code: 8480-6 BMI: 37.8 Code: 05135-4 Heart Rate 1: 84 bpm Height: 5'4" [...] 1: 128/82 Code: 8480-6 BMI: 35.5 Code: 91809-9 Heart Rate 1: 84 bpm Height: 5'4" [...] 1: 128/82 Code: 8480-6 BMI: 30.2 Code: 86189-2 Heart Rate 1: 80 bpm Height: 5'4" [...] 1: 128/86 Code: 8480-6 BMI: 32.8 Code: 79481-3 Heart Rate 1: 66 bpm Height: 5'4" Respiratory Rate: 18 bpm Temperature: 36 .3 (C) / 97.3 (F) Weight: 191 lbs 06/23/2013 Blood Pressure 1: 132/94 Code: 8480-6 BMI: 34.0 Code: 72865-2 Heart Rate 1: 84 bpm Height: 5'4" Respiratory Rate: 20 bpm Temperature: 36 .8 (C) / 98.2 (F) Weight: 198 lbs 05/26/2013 Blood Pressure 1: 114/80 Code: 8480-6 BMI: 35.0 Code: 36636-9 Heart Rate 1: 80 bpm Height: 5'4" Respiratory Rate: 20 bpm Temperature: 36 .4 (C) / 97.6 (F) Weight: 204 lbs 04/16/2013 Blood Pressure 1: 114/82 Code: 8480-6 BMI: 36.7 Code: 40571-1 Heart Rate 1: 84 bpm Height: 5'4" Respiratory Rate: 20 bpm Temperature: 36 .7 (C) / 98.0 (F) Weight: 214 lbs 03/05/2013 Blood Pressure 1: 136/90 Code: 8480-6 BMI: 37.1 Code: 91111-4 Heart Rate 1: 84 bpm Height: 5'4" [...] 1: 168/114 Code: 8480-6 BMI: 36.2 Code: 43300-2 Heart Rate 1: 104 bpm Height: 5'4" Respiratory Rate: 20 bpm Temperature: 36 .8 (C) / 98.2 (F) Weight: 211 lbs 11/22/2012 Blood Pressure 1: 128/90 Code: 8480-6 Heart Rate 1: 88 bpm Respiratory Rate: 20 bpm SpO2: 96% Temperature: 36.8 (C) / 98.2 (F) 11/21/2012 Blood Pressure 1: 146/100 Code: 8480-6 BMI: 35.7 Code: 80211-8 Heart Rate 1: 96 bpm Height: 5'4" [...] 1: 138/100 Code: 8480-6 BMI: 35.7 Code: 67087-7 Heart Rate 1: 96 bpm Height: 5'4" Respiratory Rate: 20 bpm Temperature: 36 .8 (C) / 98.2 (F) Weight: 208 lbs 05/06/2012 Blood Pressure 1: 154/102 Code: 8480-6 BMI: 34.7 Code: 17217-3 Heart Rate 1: 116 bpm Height: 5'4" Respiratory Rate: 20 bpm Temperature: 36 .8 (C) / 98.2 (F) Weight: 202 lbs 04/03/2012 Blood Pressure 1: 134/94 Code: 8480-6 BMI: 34.8 Code: 95215-5 Heart Rate 1: 108 bpm Height: 5'4" Respiratory Rate: 20 bpm Temperature: 36 .8 (C) / 98.2 (F) Weight: 203 lbs 03/19/2012 Blood Pressure 1: 148/106 Code: 8480-6 BMI: 35.0 Code: 92594-9 Heart Rate 1: 100 bpm Height: 5'4" Respiratory Rate: 20 bpm Temperature: 36 .6 (C) / 97.9 (F) Weight: 204 lbs 02/22/2012 Blood Pressure 1: 146/94 Code: 8480-6 He art Rate 1: 88 bpm 02/21/2012 Blood Pressure 1: 172/120 Code: 8480-6 B lood Pressure 2: 152/106 Code: 8480-6 Heart Rate 1: 116 bpm 02/20/2012 Blood Pressure 1: 160/100 Code: 8480-6 BMI: 32.0 Code: 41342-1 Heart Rate 1: 84 bpm Height: 5'7" Temperature: 36.5 (C) / 97.7 (F) Weight: 204 lbs 01/30/2012 Blood Pressure 1: 152/110 Code: 8480-6 BMI: 32.0 Code: 12725-0 Heart Rate 1: 116 bpm Height: 5'7" Respiratory Rate: 20 bpm Temperature: 37 .0 (C) / 98.6 (F) Weight: 204 lbs 01/24/2012 Blood Pressure 1: 146/100 Code: 8480-6 BMI: 32.0 Code: 88545-8 Heart Rate 1: 100 bpm Height: 5'7" Respiratory Rate: 20 bpm Temperature: 36 .7 (C) / 98.0 (F) Weight: 204 lbs 01/10/2012 Blood Pressure 1: 156/94 Code: 8480-6 BMI: 32.6 Code: 07113-6 Heart Rate 1: 72 bpm Height: 5'7" Respiratory Rate: 20 bpm Temperature: 36 .8 (C) / 98.2 (F) Weight: 208 lbs 12/11/2011 Blood Pressure 1: 146/100 Code: 8480-6 Heart Rat e 1: 116 bpm Height: 5'7" Respiratory Rate: 20 bpm Temperature: 36.9 (C) / 98.4 (F) We ight: 11/09/2011 Blood Pressure 1: 148/96 Code: 8480-6 BMI: 32.1 Code: 22022-1 Heart Rate 1: 116 bpm Height: 5'7" Respiratory Rate: 20 bpm Temperature: 36 .7 (C) / 98.0 (F) Weight: 205 lbs 09/13/2011 Blood Pressure 1: 126/88 Code: 8480-6 Heart Rate 1: 88 bpm Height: 5'7" Respiratory Rate: 20 bpm Temperature: 36.9 (C) / 98.4 (F) We ight: 08/31/2011 Blood Pressure 1: 118/82 Code: 8480-6 BMI: 32.0 Code: 73846-3 Heart Rate 1: 80 bpm Height: 5'7" Temperature: 36.4 (C) / 97.6 (F) Weight: 204 lbs 07/06/2011 Blood Pressure 1: 128/86 Code: 8480-6 BMI: 30.9 Code: 59964-9 Heart Rate 1: 92 bpm Height: 5'7" Respiratory Rate: 20 bpm Temperature: 36 .9 (C) / 98.4 (F) Weight: 197 lbs 06/06/2011 Blood Pressure 1: 112/74 Code: 8480-6 BMI: 31.0 Code: 40252-3 Heart Rate 1: 72 bpm Height: 5'7" [...] 1: 128/92 Code: 8480-6 BMI: 33.6 Code: 83285-2 Heart Rate 1: 104 bpm Height: 5'4" [...] headache 01/30/2012 edema 01/24/2012 Currently just takin agustin Triam/HCTZ shoulder pain 01/10/2012 thinks these are [...] Check-up Encounters Encounter Performer Location Codes Date ([id number]) OFFICE/OUTPATIENT VISIT EST Diagnosis: Blister (nonthermal), right foot, initial encounter[ICD10: S90.821A] Diagnosis: Type 2 diabetes mellitus with hyperglycemia[ICD10: E11.65] Diagnosis: Lower extremity edema[ICD10: R60.0] Kathleen APPIAH DO [facility] CPT-4: 78705 02/12/2020 ([id number]) OFFICE/OUTPATIENT VISIT EST Diagnosis: Essential (primary) hypertension[ICD10: I10] Diagnosis: Type 2 diabetes mellitus with hyperglycemia[ICD10: E11.65] Diagnosis: Allergic rhinitis[ICD10: J30.9] María Elena Waymindimaryjane APPIAH DO [facility] CPT-4: 36087 01/13/2020 ([id number]) OFFICE/OUTPATIENT VISIT EST Diagnosis: Type 2 diabetes mellitus with hyperglycemia[ICD10: E11.65] María Elena Seamusabbey MARÍA LEENA Fabiola APPIAH DO [facility] CPT-4: 00878 11/20/2019 ([id number]) OFFICE/OUTPATIENT VISIT EST Diagnosis: Ingrowing nail[ICD10: L60.0] Diagnosis: Type 2 diabetes mellitus with hyperglycemia[ICD10: E11.65] Kathleen APPIAH [facility] CPT-4: 61659 10/07/2019 ([id number]) OFFICE/OUTPATIENT VISIT EST Diagnosis: DM w/o complication type II, uncontrolled[ICD10: E11.65] Diagnosis: Hypertriglyceridemia[ICD10: E78.1] Diagnosis: Essential hypertension[ICD10: I10] María Elena JEAN Fabiola APPIAH [facility] CPT-4: 87652 09/30/2019 ([id number]) NURSE/OUTPATIENT VISIT EST Diagnosis: Essential (primary) hypertension[ICD10: I10] Diagnosis: Cervicalgia[ICD10: M54.2] Diagnosis: Hyperglycemia, unspecified[ICD10: R73.9] Diagnosis: Mixed hyperlipidemia[ICD10: E78.2] María Elena JEAN Fabiola APPIAH [facility] CPT-4: 27640 09/29/2019 ([id number]) OFFICE/OUTPATIENT VISIT EST Diagnosis: Essential (primary) hypertension[ICD10: I10] Diagnosis: Fall from bed, sequela[ICD10: W06.XXXS] María Elena REED LucioJj TD [facility] CPT-4: 36348 05/28/2019 ([id number]) NURSE/OUTPATIENT VISIT EST Diagnosis: Essential (primary) hypertension[ICD10: I10] María Elena JUARES Fabiola APPIAH [facility] CPT-4: 21577 05/19/2019 ([id number]) OFFICE/OUTPATIENT VISIT EST Diagnosis: Essential (primary) hypertension[ICD10: I10] Diagnosis: Type 2 diabetes mellitus with hyperglycemia[ICD10: E11.65] Diagnosis: Intervertebral disc disorders with radiculopathy, 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] Diagnosis: Hormone replacement therapy[ICD10: Z79.890] María Elena Seamusabbey MONTEROMARÍA ELENA Fabiola APPIAH [facility] CPT-4: 60271 01/22/2019 ([id number]) OFFICE/OUTPATIENT VISIT EST Diagnosis: Essential (primary) hypertension[ICD10: I10] Diagnosis: Type 2 diabetes mellitus with hyperglycemia[ICD10: E11.65] María Elena Seamusabbey MONTEROMARÍA ELENA LucioJj TD [facility] CPT-4: 86118 09/30/2018 ([id number]) OFFICE/OUTPATIENT VISIT EST Diagnosis: Pain in left elbow[ICD10: M25.522] Diagnosis: Acute stress reaction[ICD10: F43.0] Diagnosis: Primary insomnia[ICD10: F51.01] Diagnosis: Abnormal weight gain[ICD10: R63.5] María Elena Seamusabbey JEAN Fabiola ORTA [facility] CPT-4: 86402 08/27/2018 ([id number]) OFFICE/OUTPATIENT VISIT EST Diagnosis: Acute recurrent sinusitis, unspecified[ICD10: J01.91] Diagnosis: Follicular disorder, unspecified[ICD10: L73.9] Diagnosis: Tinea corporis[ICD10: B35.4] María Elena JUARES LucioJj TD [facility] CPT-4: 46879 08/09/2018 ([id number]) OFFICE/OUTPATIENT VISIT EST Diagnosis: Tinea corporis[ICD10: B35.4] Diagnosis: Anxiety disorder, unspecified[ICD10: F41.9] Diagnosis: Menopausal and female climacteric states[ICD10: N95.1] María Elena MONTEROQUELINE LucioJj TD [facility] CPT-4: 97479 07/22/2018 ([id number]) NURSE/OUTPATIENT VISIT EST Diagnosis: Cellulitis of right toe[ICD10: L03.031] María Elena REED LucioJj TD [facility] CPT-4: 72736 06/19/2018 ([id number]) OFFICE/OUTPATIENT VISIT EST Diagnosis: Cellulitis of right toe[ICD10: L03.031] Kathleen APPIAH DO [facility] CPT-4: 83225 06/17/2018 ([id number]) OFFICE/OUTPATIENT VISIT EST Diagnosis: Migraine without aura, intractable, without status migrainosus[ICD10: G43.019] Diagnosis: Zoster without complications[ICD10: B02.9] Kathleen APPIAH DO [facility] CPT-4: 51784 05/16/2018 ([id number]) OFFICE/OUTPATIENT VISIT EST Diagnosis: Cellulitis of right lower limb[ICD10: L03.115] Kathleen APPIAH DO [facility] CPT-4: 26586 03/20/2018 ([id number]) OFFICE/OUTPATIENT VISIT EST Diagnosis: Cellulitis of right lower limb[ICD10: L03.115] Kathleen APPIAH DO [facility] CPT-4: 48301 03/18/2018 ([id number]) OFFICE/OUTPATIENT VISIT EST Diagnosis: Cellulitis of right lower limb[ICD10: L03.115] Kathleen APPIAH DO [facility] CPT-4: 18979 03/15/2018 ([id number]) OFFICE/OUTPATIENT VISIT EST Diagnosis: Acute sinusitis, unspecified[ICD10: J01.90] Kathleen APPIAH DO [facility] CPT-4: 57904 02/11/2018 ([id number]) NURSE/OUTPATIENT VISIT EST Diagnosis: Otitis media, unspecified, right ear[ICD10: H66.91] María Elena APPIAH DO [facility] CPT-4: 80486 02/01/2018 ([id number]) OFFICE/OUTPATIENT VISIT EST Diagnosis: Acute suppurative otitis media without spontaneous rupture of ear drum, left ear[ICD10: H66.002] Diagnosis: Abnormal weight gain[ICD10: R63.5] Diagnosis: Intervertebral disc disorders with radiculopathy, 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] Kathleen APPIAH DO [facility] CPT-4: 99 214 01/30/2018 ([id number]) PREV VISIT EST AGE 40-64 Diagnosis: Encounter for general adult medical examination without abnormal findings[ICD10: Z00.00] Diagnosis: Essential (primary) hypertension[ICD10: I10] Diagnosis: Mixed hyperlipidemia[ICD10: E78.2] Diagnosis: Type 2 diabetes mellitus with hyperglycemia[ICD10: E11.65] Diagnosis: 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] María Elena APPIAH [facility] CPT-4: 65251 12/18/2017 ([id number]) OFFICE/OUTPATIENT VISIT EST Diagnosis: Cellulitis of right toe[ICD10: L03.031] Diagnosis: Mixed hyperlipidemia[ICD10: E78.2] Diagnosis: Essential (primary) hypertension[ICD10: I10] Diagnosis: Hyperglycemia, unspecified[ICD10: R73.9] Diagnosis: Nontoxic goiter, 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] María Elena APPIAH [facility] CPT-4: 56040 12/10/2017 ([id number]) OFFICE/OUTPATIENT VISIT EST Diagnosis: Cellulitis of right toe[ICD10: L03.031] Diagnosis: Acute sinusitis, unspecified[ICD10: J01.90] Kathleen APPIAH [facility] CPT-4: 03428 12/07/2017 OFFICE/OUTPATIENT VISIT EST Diagnosis: Acute maxillary sinusitis, unspecified[ICD10: J01.00] Kathleen APPIAH [facility] CPT-4: 95399 10/08/2017 ([id number]) OFFICE/OUTPATIENT VISIT EST Diagnosis: Cellulitis of left toe[ICD10: L03.032] María [facility] CPT[facility]: 91328 09/21/2017 ([id number]) OFFICE/OUTPATIENT VISIT EST Diagnosis: Insomnia, unspecified[ICD10: G47.00] Diagnosis: Major depressive disorder, single episode, unspecified[ICD10: F32.9] Diagnosis: Anxiety disorder, unspecified[ICD10: F41.9] Diagnosis: Cellulitis of left toe[ICD10: L03.032] Diagnosis: Snoring[ICD10: R06.83] Kathleen APPIAH DO [facility] CPT-4: 54810 09/20/2017 ([id number]) OFFICE/OUTPATIENT VISIT EST Diagnosis: Cellulitis of left toe[ICD10: L03.032] María Elena [facility] [facility] CPT[facility]: 11407 07/19/2017 OFFICE/OUTPATIENT VISIT EST Diagnosis: Chronic sinusitis, unspecified[ICD10: J32.9] Diagnosis: Generalized hyperhidrosis[ICD10: R61] Kathleen APPIAH DO [facility] CPT-4: 98110 06/27/2017 ([id number]) OFFICE/OUTPATIENT VISIT EST Diagnosis: Intervertebral disc disorders with radiculopathy, 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] Diagnosis: Primary insomnia[ICD10: F51.01] Diagnosis: Other fatigue[ICD10: R53.83] María Elena APPIAH DO [facility] CPT-4: 75130 04/10/2017 ([id number]) OFFICE/OUTPATIENT VISIT EST Diagnosis: Primary insomnia[ICD10: F51.01] Diagnosis: Localized edema[ICD10: R60.0] Diagnosis: 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] María Elena APPIAH DO [facility] CPT-4: 72380 12/13/2016 ([id number]) OFFICE/OUTPATIENT VISIT EST Diagnosis: Primary insomnia[ICD10: F51.01] Diagnosis: Cyanosis[ICD10: R23.0] María Elena Bazzi [facility] CPT-4: 95300 11/01/2016 ([id number]) PREV VISIT EST AGE 40-64 Diagnosis: Encounter for gynecological examination (general) (routine) without abnormal findings[ICD10: Z01.419] Diagnosis: Encounter for routine child health examination without abnormal findings[ICD10: Z00.129] María Elena APPIAH DO [facility] CPT-4: 20407 10/17/2016 ([id number]) OFFICE/OUTPATIENT VISIT EST Diagnosis: Other seasonal allergic rhinitis[ICD10: J30.2] María Elena APPIAH DO [email or web address] CPT-4: 24234 10/10/2016 ([id number]) OFFICE/OUTPATIENT VISIT EST Diagnosis: Pain in left arm[ICD10: M79.602] Diagnosis: Contact with and (suspected) exposure to potentially hazardous body fluids[ICD10: Z77.21] Diagnosis: 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, 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] Diagnosis: Unspecified open wound, right foot, sequela[ICD10: S91.301S] María Elena APPIAH [employer] CPT-4: 44484 09/19/2016 ([id number]) OFFICE/OUTPATIENT VISIT EST Diagnosis: Chronic sinusitis, unspecified[ICD10: J32.9] Diagnosis: Allergic rhinitis due to pollen[ICD10: J30.1] María Elena APPIAH [employer] CPT-4: 47286 08/24/2016 ([id number]) OFFICE/OUTPATIENT VISIT EST Diagnosis: Acute bronchitis, unspecified[ICD10: J20.9] María Elena APPIAH DO [email or web address] CPT-4: 42941 08/16/2016 ([id number]) OFFICE/OUTPATIENT VISIT EST Diagnosis: Otitis media, unspecified, right ear[ICD10: H66.91] Diagnosis: Acute bronchitis, unspecified[ICD10: J20.9] María Elena APPIAH [facility] CPT-4: 55253 08/10/2016 ([id number]) OFFICE/OUTPATIENT VISIT EST Diagnosis: Acute recurrent sinusitis, unspecified[ICD10: J01.91] Diagnosis: Allergic rhinitis due to pollen[ICD10: J30.1] María Elena APPIAH [employer] CPT-4: 56714 08/02/2016 ([id number]) OFFICE/OUTPATIENT VISIT EST Diagnosis: Pain in unspecified joint[ICD10: M25.50] María Elena APPIAH DO [facility] CPT-4: 26656 07/27/2016 OFFICE/OUTPATIENT VISIT EST Diagnosis: 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] Diagnosis: Acute recurrent sinusitis, unspecified[ICD10: J01.91] Diagnosis: Other fatigue[ICD10: R53.83] Diagnosis: Primary insomnia[ICD10: F51.01] Diagnosis: Pain in unspecified joint[ICD10: M25.50] María Elena APPIAH [facility] CPT-4: 44414 07/20/2016 ([id number]) OFFICE/OUTPATIENT VISIT EST Diagnosis: Blister (nonthermal), left great toe, initial encounter[ICD10: S90.422A] Loan ELLISLINE Fabiola APPIAH [facility] CPT-4: 44215 ([id number]) OFFICE/OUTPATIENT VISIT EST Diagnosis: Acute recurrent sinusitis, unspecified[ICD10: J01.91] María Elena APPIAH [facility] CPT-4: 65545 05/25/2016 ([id number]) OFFICE/OUTPATIENT VISIT EST Diagnosis: Acute sinusitis, unspecified[ICD10: J01.90] María Elena APPIAH [facility] CPT-4: 57660 04/26/2016 ([id number]) OFFICE/OUTPATIENT VISIT EST Diagnosis: Flushing[ICD10: R23.2] Diagnosis: Primary insomnia[ICD10: F51.01] María Elena APPIAH [facility] CPT-4: 71363 03/02/2016 ([id number]) OFFICE/OUTPATIENT VISIT EST Diagnosis: Other seasonal allergic rhinitis[ICD10: J30.2] Loan ELLISLINE Fabiola APPIAH [facility] CPT-4: 20567 02/09/2016 ([id number]) OFFICE/OUTPATIENT VISIT EST Diagnosis: Primary insomnia[ICD10: F51.01] Diagnosis: Urinary tract infection, site not specified[ICD10: N39.0] María Elena APPIAH [facility] CPT-4: 61406 01/24/2016 ([id number]) OFFICE/OUTPATIENT VISIT EST Diagnosis: Other specified disorders of Eustachian tube, bilateral[ICD10: H69.83] Diagnosis: Allergic rhinitis, unspecified[ICD10: J30.9] Loan APPIAH DO [facility] CPT-4: 51040 12/23/2015 ([id number]) OFFICE/OUTPATIENT VISIT EST Diagnosis: Acute recurrent sinusitis, unspecified[ICD10: J01.91] Diagnosis: 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] Diagnosis: Allergic rhinitis, unspecified[ICD10: J30.9] María Elena APPIAH [facility] CPT-4: 42954 12/08/2015 ([id number]) OFFICE/OUTPATIENT VISIT EST Diagnosis: Allergic rhinitis, unspecified[ICD10: J30.9] Diagnosis: Pain in unspecified joint[ICD10: M25.50] María Elena APPIAH DO [facility] CPT-4: 95144 10/07/2015 ([id number]) OFFICE/OUTPATIENT VISIT EST Diagnosis: Essential (primary) hypertension[ICD10: I10] María Elena APPIAH [facility] CPT-4: 39874 10/06/2015 OFFICE/OUTPATIENT VISIT EST Diagnosis: Localized enlarged lymph nodes[ICD10: R59.0] Diagnosis: Local infection of the skin and subcutaneous tissue, unspecified[ICD10: L08.9] June VelozAlbertadaniella APPIAH [facility] CPT- 4: 86031 09/14/2015 ([id number]) OFFICE/OUTPATIENT VISIT EST Diagnosis: Essential (primary) hypertension[ICD10: I10] Diagnosis: Actinic keratosis[ICD10: L57.0] María Elena APPIAH DO [facility] CPT-4: 70910 09/07/2015 ([id number]) OFFICE/OUTPATIENT VISIT EST Diagnosis: Essential (primary) hypertension[ICD10: I10] Diagnosis: Acute stress reaction[ICD10: F43.0] María Elena Seamusmindimaryjane MONTEROGOMEZ COLON Fabiola APPIAH [facility] CPT-4: 89196 08/18/2015 ([id number]) OFFICE/OUTPATIENT VISIT EST Diagnosis: Essential (primary) hypertension[ICD10: I10] María Elenagael APPIAH DO [facility] CPT-4: 39937 07/07/2015 ([id number]) OFFICE/OUTPATIENT VISIT EST Diagnosis: Essential (primary) hypertension[ICD10: I10] María Elena APPIAH DO [facility] CPT-4: 21860 06/24/2015 ([id number]) OFFICE/OUTPATIENT VISIT EST Diagnosis: Essential (primary) hypertension[ICD10: I10] María Elena APPIAH DO [facility] CPT-4: 32788 06/21/2015 ([id number]) OFFICE/OUTPATIENT VISIT EST Diagnosis: Essential (primary) hypertension[ICD10: I10] Diagnosis: Mixed hyperlipidemia[ICD10: E78.2] Diagnosis: Acute stress reaction[ICD10: F43.0] Diagnosis: Primary insomnia[ICD10: F51.01] María Elena APPIAH DO [facility] CPT-4: 77484 06/16/2015 ([id number]) OFFICE/OUTPATIENT VISIT EST Diagnosis: INSOMNIA NOS[ICD9: 780.52] Diagnosis: HYPERTENSION[ICD9: 401.9] Diagnosis: Stress reaction[ICD9: 308.9] María Elena APPIAH DO [facility] CPT-4: 58989 06/02/2015 ([id number]) OFFICE/OUTPATIENT VISIT EST Diagnosis: HYPERTENSION[ICD9: 401.9] Diagnosis: Stress reaction[ICD9: 308.9] María Elena APPIAH DO [facility] CPT-4: 62036 05/20/2015 ([id number]) OFFICE/OUTPATIENT VISIT EST Diagnosis: Skin lesion[ICD9: 709.9] 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] María Elena APPIAH DO [facility] CPT-4: 24274 05/10/2015 ([id number]) OFFICE/OUTPATIENT VISIT EST Diagnosis: SINUSITIS, ACUTE[ICD9: 461.9] Diagnosis: ALLERGIC RHINITIS[ICD9: 477.9] Diagnosis: DERMATITIS NOS[ICD9: 692.9] María Elena REHMAN [facility] CPT-4: 65335 03/16/2015 OFFICE/OUTPATIENT VISIT EST Diagnosis: Otitis media[ICD9: 382.9] Diagnosis: SINUSITIS, ACUTE[ICD9: 461.9] June APPIAH [facility] CPT-4: 59835 09/11/2014 ([id number]) OFFICE/OUTPATIENT VISIT EST Diagnosis: HYPERLIPIDEMIA NEC/NOS[ICD9: 272.4] María Elena APPIAH DO [facility] CPT-4: 12135 08/31/2014 ([id number]) OFFICE/OUTPATIENT VISIT EST Diagnosis: - I - HYPERTENSION[ICD9: 401.9] Diagnosis: HYPERLIPIDEMIA NEC/NOS[ICD9: 272.4] María Elena APPIAH [facility] CPT-4: 94679 08/27/2014 ([id number]) OFFICE/OUTPATIENT VISIT EST Diagnosis: ABDOMINAL PAIN[ICD9: 789.00] Diagnosis: DYSPEPSIA[ICD9: 536.8] Diagnosis: Thoracic back pain[ICD9: 724.1] María Elena APPIAH [facility] CPT-4: 20130 07/21/2014 ([id number]) OFFICE/OUTPATIENT VISIT EST Diagnosis: ALLERGIC RHINITIS[ICD9: 477.9] María Elena APPIAH [facility] CPT-4: 12944 07/15/2014 ([id number]) OFFICE/OUTPATIENT VISIT EST Diagnosis: EDEMA[ICD9: 782.3] Diagnosis: Chronic insomnia[ICD9: 780.52] María Elena APPIAH [facility] CPT-4: 37319 05/18/2014 ([id number]) OFFICE/OUTPATIENT VISIT EST Diagnosis: Thyromegaly[ICD9: 240.9] Diagnosis: - I - HYPERTENSION[ICD9: 401.9] Diagnosis: ROUTINE MEDICAL EXAM[ICD9: V70.0] Diagnosis: EDEMA[ICD9: 782.3] María Elena APPIAH DO [facility] CPT-4: 43642 05/14/2014 OFFICE/OUTPATIENT VISIT EST Diagnosis: BRONCHITIS, ACUTE[ICD9: 466.0] Diagnosis: SINUSITIS, ACUTE[ICD9: 461.9] María Elena APPIAH DO [facility] CPT-4: 81484 04/21/2014 OFFICE/OUTPATIENT VISIT EST Diagnosis: SINUSITIS, ACUTE[ICD9: 461.9] June APPIAH DO [facility] CPT-4: 38556 03/04/2014 ([id number]) OFFICE/OUTPATIENT VISIT EST Diagnosis: VACCINE FOR TDAP[ICD10: Z23] María Elena APPIAH [facility] CPT-4: 46464 02/27/2014 ([id number]) OFFICE/OUTPATIENT VISIT EST Diagnosis: Seborrheic keratoses, inflamed[ICD9: 702.11] Diagnosis: ACTINIC KERATOSIS[ICD9: 702.0] Diagnosis: INSOMNIA NOS[ICD9: 780.52] María Elena [facility] CPT-4: 76579 01/13/2014 OFFICE/OUTPATIENT VISIT EST 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] Diagnosis: ALLERGIC RHINITIS[ICD9: 477.9] Diagnosis: Serous otitis media[ICD9: 381.4] María Elena APPIAH [facility] CPT-4: 01135 12/24/2013 ([id number]) OFFICE/OUTPATIENT VISIT EST Diagnosis: SINUSITIS, ACUTE[ICD9: 461.9] Diagnosis: ALLERGIC RHINITIS[ICD9: 477.9] 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] María Elena APPIAH [facility] CPT-4: 08818 11/12/2013 ([id number]) OFFICE/OUTPATIENT VISIT EST Diagnosis: ALLERGIC RHINITIS[ICD9: 477.9] Diagnosis: SINUSITIS, ACUTE[ICD9: 461.9] María Elena APPIAH [facility] CPT-4: 74463 10/21/2013 ([id number]) OFFICE/OUTPATIENT VISIT EST Diagnosis: ASYMPTOMATIC VARICOSE VEINS[ICD9: 454.9] Diagnosis: INSOMNIA NOS[ICD9: 780.52] María Elena [facility] CPT-4: 59737 09/22/2013 OFFICE/OUTPATIENT VISIT EST Diagnosis: SINUSITIS, ACUTE[ICD9: 461.9] June APPIAH [facility] CPT-4: 92759 08/27/2013 ([id number]) OFFICE/OUTPATIENT VISIT EST Diagnosis: CEPHALGIA[ICD9: 784.0] Diagnosis: CEPHALGIA, TENSION[ICD9: 307.81] 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] María Elena APPIAH [facility] CPT-4: 90695 08/04/2013 ([id number]) OFFICE/OUTPATIENT VISIT EST Diagnosis: Cervicalgia[ICD9: 723.1] Diagnosis: SPASM OF MUSCLE[ICD9: 728.85] Diagnosis: CEPHALGIA, TENSION[ICD9: 307.81] María Elena APPIAH [facility] CPT-4: 62564 07/23/2013 ([id number]) OFFICE/OUTPATIENT VISIT EST 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] Diagnosis: ALLERGIC RHINITIS[ICD9: 477.9] María Elena APPIAH [facility] CPT-4: 91568 06/23/2013 ([id number]) OFFICE/OUTPATIENT VISIT EST Diagnosis: ALLERGIC RHINITIS[ICD9: 477.9] Diagnosis: ACUTE SEROUS OTITIS MEDIA[ICD9: 381.01] 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] María Elena APPIAH [facility] CPT-4: 56270 05/26/2013 ([id number]) OFFICE/OUTPATIENT VISIT EST Diagnosis: HYPERTENSION[ICD9: 401.9] Diagnosis: EDEMA[ICD9: 782.3] Diagnosis: Serous otitis media[ICD9: 381.4] María Elena APPIAH [facility] CPT-4: 04048 04/16/2013 ([id number]) OFFICE/OUTPATIENT VISIT EST Diagnosis: SINUSITIS, ACUTE[ICD9: 461.9] Diagnosis: ALLERGIC RHINITIS[ICD9: 477.9] Diagnosis: EDEMA[ICD9: 782.3] Diagnosis: Thyromegaly[ICD9: 240.9] Diagnosis: MALAISE AND FATIGUE[ICD9: 780.79] María Elena Lopez Fabiola APPIAH [facility] CPT-4: 49952 03/05/2013 ([id number]) OFFICE/OUTPATIENT VISIT EST Diagnosis: PAIN, LOWER BACK[ICD9: 724.2] Diagnosis: SPASM OF MUSCLE[ICD9: 728.85] María Elena Td ELLISLINE Fabiola APPIAH DO [facility] CPT-4: 46088 12/23/2012 OFFICE/OUTPATIENT VISIT EST Diagnosis: Low back pain[ICD9: 724.2] Lashawn JUARES LucioJj KRISTYN [facility] CPT-4: 16553 12/16/2012 ([id number]) OFFICE/OUTPATIENT VISIT EST Diagnosis: PAIN, LOWER BACK[ICD9: 724.2] Diagnosis: SCIATICA[ICD9: 724.3] Diagnosis: Lumbar herniated disc[ICD9: 722.10] María Elena COLON Fabiola APPIAH [facility] CPT-4: 61933 12/09/2012 ([id number]) OFFICE/OUTPATIENT VISIT EST Diagnosis: PAIN, LOWER BACK[ICD9: 724.2] Diagnosis: SCIATICA[ICD9: 724.3] Diagnosis: LUMBAR DISC DISPLACEMENT[ICD9: 722.10] María Elena MARIN Fabiola ORTA [facility] CPT-4: 43802 12/04/2012 OFFICE/OUTPATIENT VISIT EST Diagnosis: Pneumonia[ICD9: 486] Mary Tillman MARÍA ELENA Fabiola APPIAH [facility] CPT-4: 43264 11/22/2012 ([id number]) OFFICE/OUTPATIENT VISIT EST Diagnosis: PNEUMONIA, ORGANISM[ICD9: 486] Diagnosis: Exacerbation of RAD (reactive airway disease)[ICD9: 493.92] María Elenamarcella Appiah MARÍA ELENA Fabiola APPIAH [facility] CPT-4: 09973 11/21/2012 OFFICE/OUTPATIENT VISIT EST Diagnosis: HYPERTENSION[ICD9: 401.9] Diagnosis: Cephalgia[ICD9: 784.0] Lashawn Hicks TD [facility] CPT-4: 87542 10/29/2012 ([id number]) OFFICE/OUTPATIENT VISIT EST Diagnosis: MALAISE AND FATIGUE[ICD9: 780.79] Diagnosis: ARTHRALGIA-MULTIPLE SITES[ICD9: 719.49] María Elena APPIAH DO [facility] CPT-4: 29565 10/14/2012 ([id number]) OFFICE/OUTPATIENT VISIT EST Diagnosis: URINARY FREQUENCY[ICD9: 788.41] María Elena APPIAH DO [facility] CPT-4: 77067 09/27/2012 ([id number]) OFFICE/OUTPATIENT VISIT EST Diagnosis: MALAISE AND FATIGUE[ICD9: 780.79] Diagnosis: ARTHRALGIA-MULTIPLE SITES[ICD9: 719.49] María Elena APPIAH DO [facility] CPT-4: 20908 09/25/2012 ([id number]) OFFICE/OUTPATIENT VISIT EST Diagnosis: SINUSITIS, ACUTE[ICD9: 461.9] 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] María Elena APPIAH DO [facility] CPT-4: 76564 08/29/2012 OFFICE/OUTPATIENT VISIT EST Diagnosis: ACTINIC KERATOSIS[ICD9: 702.0] Diagnosis: Inflamed seborrheic keratosis[ICD9: 702.11] Diagnosis: Skin cancer of face[ICD9: 173.31] Diagnosis: HYPERTENSION[ICD9: 401.9] María Elena [facility] CPT-4: 52144 08/12/2012 ([id number]) OFFICE/OUTPATIENT VISIT EST Diagnosis: ARTHRALGIA-MULTIPLE SITES[ICD9: 719.49] Diagnosis: GOUT[ICD9: 274.9] Diagnosis: HYPERTENSION[ICD9: 401.9] Diagnosis: Tachycardia[ICD9: 785.0] María Elena REDDY [facility] CPT-4: 89317 05/06/2012 ([id number]) OFFICE/OUTPATIENT VISIT EST Diagnosis: INSOMNIA NOS[ICD9: 780.52] María Elena PANDYA [facility] CPT-4: 84950 04/03/2012 ([id number]) OFFICE/OUTPATIENT VISIT EST Diagnosis: INSOMNIA NOS[ICD9: 780.52] Diagnosis: HYPERTENSION[ICD9: 401.9] Diagnosis: MIGRAINE NOS/NOT INTRCBL[ICD9: 346.90] María Elena ISAAC TANIA ValdesJj TD [facility] CPT-4: 05141 03/19/2012 ([id number]) OFFICE/OUTPATIENT VISIT EST Diagnosis: CELLULITIS[ICD9: 682.9] Diagnosis: Ankle pain[ICD9: 719.47] Diagnosis: HYPERTENSION[ICD9: 401.9] María Elena JUARES LucioJj SE[facility]US [facility] CPT-4: 26031 02/20/2012 ([id number]) OFFICE/OUTPATIENT VISIT EST Diagnosis: MIGRAINE NOS/NOT INTRCBL[ICD9: 346.90] Diagnosis: Vomiting[ICD9: 787.03] María Elena JUARES LucioJj CIRO Bazzi [facility] CPT-4: 55385 01/30/2012 ([id number]) OFFICE/OUTPATIENT VISIT EST Diagnosis: EDEMA[ICD9: 782.3] Diagnosis: HYPERTENSION[ICD9: 401.9] Diagnosis: ALLERGIC RHINITIS[ICD9: 477.9] Diagnosis: ARTHRALGIA-MULTIPLE SITES[ICD9: 719.49] María Elena REED LucioJj TD [facility] CPT-4: 87737 01/24/2012 ([id number]) OFFICE/OUTPATIENT VISIT EST Diagnosis: SPASM OF MUSCLE[ICD9: 728.85] Diagnosis: Thoracic back pain[ICD9: 724.1] Diagnosis: Cervical pain[ICD9: 723.1] María Elena Hicks KRISTYN MUMTAZ [facility] CPT-4: 43272 01/10/2012 OFFICE/OUTPATIENT VISIT EST Diagnosis: PAIN, LOWER BACK[ICD9: 724.2] Diagnosis: LUMBAR DISC DISPLACEMENT[ICD9: 722.10] María Elena CulverJARED ValdesJj TD [facility] CPT-4: 15997 12/11/2011 OFFICE/OUTPATIENT VISIT EST Diagnosis: MIGRAINE NOS/NOT INTRCBL[ICD9: 346.90] Diagnosis: SINUSITIS, ACUTE[ICD9: 461.9] María Elena JUARES LucioJj TD [facility] CPT-4: 42089 11/09/2011 OFFICE/OUTPATIENT VISIT EST Diagnosis: MIGRAINE NOS/NOT INTRCBL[ICD9: 346.90] Diagnosis: LYMPHADENOPATHY[ICD9: 785.6] María Elena ValdesJj TD [facility] CPT-4: 48916 09/13/2011 OFFICE/OUTPATIENT VISIT EST Diagnosis: MALAISE AND FATIGUE[ICD9: 780.79] Diagnosis: ARTHRALGIA-MULTIPLE SITES[ICD9: 719.49] María Elena ValdesJj TD [facility] CPT-4: 13331 08/31/2011 OFFICE/OUTPATIENT VISIT EST Diagnosis: SINUSITIS, ACUTE[ICD9: 461.9] María Elena ValdesJj TD [facility] CPT-4: 57210 07/20/2011 OFFICE/OUTPATIENT VISIT EST Diagnosis: HYPERTENSION[ICD9: 401.9] Diagnosis: PAIN, LOWER BACK[ICD9: 724.2] Diagnosis: SPASM OF MUSCLE[ICD9: 728.85] María Elena ValdesJj TD [facility] CPT-4: 76001 07/06/2011 OFFICE/OUTPATIENT VISIT EST Diagnosis: MIGRAINE NOS/NOT INTRCBL[ICD9: 346.90] Diagnosis: HYPERTENSION[ICD9: 401.9] María Elena ValdesJj [facility] CPT-4: 29206 05/22/2011 OFFICE/OUTPATIENT VISIT EST Diagnosis: SINUSITIS, ACUTE[ICD9: 461.9] Diagnosis: MIGRAINE NOS/NOT INTRCBL[ICD9: 346.90] Diagnosis: Dehydration[ICD9: 276.51] Diagnosis: Vomiting[ICD9: 787.03] María Elenamarcella Hicks SEAMUSGALINA Bazzi [facility] CPT-4: 77001 05/09/2011 ([id number]) OFFICE/OUTPATIENT VISIT EST María Elena Seamusmindimaryjane MARLIN TANIA SJj [facility] CPT-4: 54470 02/14/2011 ([id number]) OFFICE/OUTPATIENT VISIT EST María Elena Seamusabbey ISAAC TANIA SJj [facility] CPT-4: 97839 02/03/2011 ([id number]) OFFICE/OUTPATIENT VISIT EST María Elena Seamusmindimaryjane MARLIN TANIA ValdesJj [facility] CPT-4: 53406 01/31/2011 ([id number]) OFFICE/OUTPATIENT VISIT EST María Elena [facility] CPT-4: 12298 01/25/2011 ([id number]) OFFICE/OUTPATIENT VISIT EST María Elena [facility] CPT-4: 67022 01/18/2011 ([id number]) OFFICE/OUTPATIENT VISIT EST María Elena MARIN SJj [facility] CPT-4: 18684 11/29/2010 ([id number]) OFFICE/OUTPATIENT VISIT, EST María Elena BRAUNLINE [facility] CPT-4: 41259 10/10/2010 ([id number]) OFFICE/OUTPATIENT VISIT, EST María Elena [facility]LINE [facility] CPT-4: 55964 06/07/2010 ([id number]) OFFICE/OUTPATIENT VISIT, EST María Elena BRAUNLINE [facility] CPT-4: 18783 04/27/2010 ([id number]) OFFICE/OUTPATIENT VISIT, EST María Elena MONTERO QUELINE [facility] CPT-4: 96335 04/05/2010 ([id number]) OFFICE/OUTPATIENT VISIT, EST María Elena MONTERO QUELINE [facility] CPT-4: 83956 03/09/2010 ([id number]) OFFICE/OUTPATIENT VISIT, EST María Elena REED [facility] CPT-4: 81184 03/03/2010 ([id number]) OFFICE/OUTPATIENT VISIT, EST María Elena REED [facility] CPT-4: 93712 01/17/2010 ([id number]) PREV VISIT, EST, AGE 40-64 María Elena CO[facility]MAN [facility] CPT-4: 93057 12/27/2009 Plan of Care Planned Activity Notes [...] ICD-10 : S90.821A 02/12/2020 Appointment: Kathleen Zuniga [address] [place] [address] ACUTE ILLNESS 02/12/2020 Visit Diagnosis Plan: Essential [...] E11.65 01/13/2020 Appointment: María Elena Appiah WPtel: [address] [place], [place] [phone] [place] FOLLOW UP 01/13/2020 Patient Education: lisinopril- [employer] [id number] Completed 01/13/2020 Patient Education: glimepiride- [employer] [id number] Completed 01/13/2020 Appointment: María Elena Appiah WPtel: [address] [place] [address] [place] CANCELED 11/26/2019 Visit Diagnosis Plan: Type 2 diabetes mellitus with hy perglycemia Discussion: Januvia 100mg daily Glimepride 2mg po BID Accuchecks BID Call in 2 weeks with BS readings Get formulary book ICD-9 : 250.02 ICD-10 : E11.65 11/20/2019 Appointment: María Elena Appiah WPtel: [phone] [id number] FOLLOW UP 11/20/2019 Patient Education: glimepiride- [employer] C[employer]on [id number] Completed 11/20/2019 Patient Education: Januvia- [employer] C[employer]on [id number] Completed 11/20/2019 Visit Diagnosis Plan: Ingrowing nail [...] ICD-10 : E11.65 10/07/2019 Appointment: Kathleen Zuniga [address] [place], [place] [id number] OFFICE SURGERY 10/07/2019 Visit Diagnosis Plan: Hypertriglyceridemia [...] E11.65 09/30/2019 Appointment: María Elena Appiah WPtel: [address] [place], [place] [phone] [place] CHECK UP 09/30/2019 Patient Education: Premarin- [employer] C[employer]on [id number] [email or web address]://[email or web address]/resources/[email or web address] Completed 09/30/2019 Appointment: María Elena Appiah WPtel: [address] [place], [place] [phone] [place] LAB 09/29/2019 Appointment: María Elena Appiah WPtel: [address] [place], [place] [phone] [place] Won't have the new insurance till [...] 05/28/2019 Appointment: María Elena Appiah WPtel: [address] [place], [place] [id number] [place] FOLLOW UP 05/28/2019 Appointment: María Elena Appiahtel: [address] [place], [place] [phone] [place] BP CHECK 05/19/2019 Visit Diagnosis Plan: [...] : Z79.890 01/22/2019 Appointment: María Elena Appiahtel: [address] [place] [address] [place] FOLLOW UP 01/22/2019 Patient Education: estradiol- [employer] Coupon [id number] [email or web address]/resources/[email or web address] Completed 01/22/2019 Appointment: María Elena Appiah WPtel: [address] [place] [address] [place] CANCELED 01/20/2019 Appointment: María Elena Appiah WPtel: [address] [place] [address] [place] LM NO SHOW 01/06/2019 Appointment: María Elena Appiah WPtel: [address] [place] [address] US CANCELED 10/17/2018 Appointment: María Elena Appiah WPtel: [address] [place] [address] US BP CHECK 10/09/2018 Visit Diagnosis Plan: Type 2 diabetes mellitus with hy perglycemia Discussion: Patient still has not gotten lab done--will go today Check UA for microalbumin Follow Up: 3 months ICD-9 : 250.02 ICD-10 : E11.65 09/30/2018 Visit Diagnosis Plan: Essential (primary) hypertension Discussion: Continue current meds and monitor BP ICD-9 : 401.9 ICD-10 : I10 09/30/2018 Appointment: María Elena Appiahtel: [address] [place] [address] FOLLOW UP 09/30/2018 Visit Diagnosis Plan: Pain [...] ICD-10 : F51.01 08/27/2018 Appointment: María Elena Appiahtel: [address] [place] [address] ACUTE ILLNESS 08/27/2018 Appointment: María Elena Appiahtel: [address] [place] [address] [place] Patient stated she went out to [...] prn. Tyle... 08/09/2018 Appointment: María Elena Appiahtel: [address] [place] [address] ACUTE ILLNESS 08/09/2018 Appointment: María Elena Appiahl: [address] [place] [address] [place] NO SHOW 08/08/2018 Visit Diagnosis Plan: [...] B35.4 07/22/2018 Appointment: María Elena Appiah WPtel: [address] [place] [address] ACUTE ILLNESS 07/22/2018 Appointment: María Elena Appiah WPtel: [address] [place] [address] [place] INJECTION 06/19/2018 Patient Education: Patient Medication [...] ICD-10 : L03.031 06/17/2018 Appointment: Kathleen Zuniga [address] [place] [address] ACUTE ILLNESS 06/17/2018 Patient Education: Patient Medication [...] ICD-10 : B02.9 05/16/2018 Appointment: Kathleen Zuniga [address] [place] [address] ACUTE ILLNESS 05/16/2018 Patient Education: Patient Medication [...] ICD-10 : L03.115 03/20/2018 Appointment: Kathleen Zuniga [address] [place], [place] [id number] FOLLOW UP 03/20/2018 Patient Education: Patient Medication [...] : L03.115 03/18/2018 Appointment: Kathleen Zuniga [address] [place], [place] [id number] FOLLOW UP 03/18/2018 Patient Education: Patient Medication [...] ICD-10 : L03.115 03/15/2018 Appointment: Kathleen Zuniga [address] [place], [place] [id number] ACUTE ILLNESS 03/15/2018 Patient Education: Patient Medication [...] : J01.90 02/11/2018 Appointment: Kathleen Zuniga [address] [place], [place] [phone] ACUTE ILLNESS 02/11/2018 Patient Education: Patient Medication Summary Completed 02/11/2018 Appointment: María Elena Appiah WPtel: [phone] [facility] INJECTION 02/01/2018 Patient Education: Patient Medication Summary [...] ICD-10 : M51.16 01/30/2018 Appointment: Kathleen Zuniga [address] [place], [place] [id number] ACUTE ILLNESS 01/30/2018 Patient Education: Patient [...] E11.65 12/18/2017 Appointment: María Elena Appiah WPtel: [address] [place] [address] Annual Well Visit 12/18/2017 Patient Education: Patient Medication Summary Completed 12/18/2017 Care Plan: Referral Order SNOMED-CT : [id number] Pending 12/18/2017 Appointment: María Elena Appiah WPtel: [facility] [place] INJECTION 12/10/2017 Patient Education: Patient Medication [...] ICD-10 : L03.031 12/07/2017 Appointment: Kathleen Zuniga [address] [place], [place] [phone] ACUTE ILLNESS 12/07/2017 Patient Education: Patient Medication [...] ICD-10 : J01.00 10/08/2017 Appointment: Kathleen Zuniga [address] [place], [place] [phone] ACUTE ILLNESS 10/08/2017 Patient Education: Patient Medication Summary Completed 10/08/2017 Appointment: María Elena Appiah WPtel: [phone] [facility] INJECTION 09/21/2017 Patient Education: Patient Medication Summary [...] ICD-10 : R06.83 09/20/2017 Appointment: Kathleen Zuniga [address] [place] [address] ACUTE ILLNESS 09/20/2017 Patient Education: Patient Medication [...] ICD-10 : L60.0 08/29/2017 Appointment: Kathleen Zuniga [address] [place], [place] [address] OFFICE SURGERY 08/29/2017 Patient Education: Patient Medication Summary Completed 08/29/2017 Visit Diagnosis Plan: Actinic keratosis Discussion: Cr yotherapy as above ICD-9 : 702.0 ICD-10 : L57.0 08/01/2017 Appointment: María Elena Appiah WPtel: [phone] [place] [id number] OFFICE SURGERY 08/01/2017 Patient Education: Patient Medication Summary Completed 08/01/2017 Appointment: María Elena Appiah WPtel: [phone] [facility]66[facility] PATIENT THOUGHT APPOINTMENT WAS TOMORROW 07/26/17 CALLED 15 MINUTES BEFORE APPT TO SAY SHE DIDN'T HAVE ANYONE TO COVER HER BUSINESS AND WOULD NOT MAKE IT NO SHOW 07/25/2017 Visit Diagnosis Plan: Cellulitis of left toe Discussio n: Clindamycin and notify if worsening or persistis ICD-9 : 681.10 ICD-10 : L03.032 07/19/2017 Appointment: María Elena Appiah WPtel: [phone] MEDICATION REVIEW 07/19/2017 Patient Education: Patient Medication Summary Completed 07/19/2017 Appointment: María Elena Appiah WPtel: [phone] [facility] [place] CANCELED 07/04/2017 Visit Diagnosis Plan: Generalized hyperhidrosis Discus ian: CBC, CMP, TSH, free T4 ordered to assess. will review labs. ICD-9 : 780.8 ICD-10 : R61 06/27/2017 Visit Diagnosis Plan: Chronic sinusitis, unspecified D iscussion: Referral sent to dr. albarado in [place] per patient request. patient has been treated multiple times for sinus infections with no recovery. patient was seen by dr sanchez in the past with no interventions. patient has deviated septum which may be affecting her sinuses. 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, including hip Discussion: Shave removal of above lesio n--sent to pathology ICD-9 : 216.7 ICD-10 : D23.72 01/24/2017 Appointment: María Elena Appiah WPtel: [address] [place] [address] 01/23 confirmed ~sl OFFICE SURGERY 01/24/2017 Patient Education: Patient Medication Summary Completed 01/24/2017 Appointment: Loan Sánchez [address] [place] [address] 01/09 rescheduled~sl RESCHEDULED 01/15/2017 Visit Diagnosis Plan: [...] L81.4 12/13/2016 Appointment: María Elena Appiah WPtel: [address] [place], [place] [phone] [place] 12/12 confirmed ~sl MEDICATION REVIEW 12/13/2016 Patient Education: Patient Medication Summary Completed 12/13/2016 Appointment: María Elena Appiah WPtel: [address] [place], [place] [id number] [place] rescheduled for 12/13/16 at 11am RESCHEDULED 0 12/06/2016 Appointment: María Elena Appiah WPtel: [address] [place], [place] [id number] [place] CANCELED 11/23/2016 Patient Education: Patient Medication [...] F51.01 11/01/2016 Appointment: María Elena Appiah WPtel: [address] [place], [place] [id number] [place] 10/31 lm `sl 11/01 lm`sl MEDICATION REVIEW 017 Patient Education: Patient Medication Summary Completed 11/01/2016 Referral: Canelo Overton WPtel: [phone] [id number] [place] Referral Initiated 10/30/2016 Visit Diagnosis Plan: [...] Z01.419 10/17/2016 Appointment: María Elena Appiah WPtel: [facility] [place] [place] 2/ confirmed ~sl PAP 10/17/2016 Patient Education: Patient Medication Summary Completed 10/17/2016 Care Plan: MAMMOGRAM SCREENING LOINC : 2 6347-5 Pending 10/17/2016 Visit Diagnosis Plan: Other seasonal allergic rhinitis Discussion: Decadron/Garamycin Nasal [place] Mix Too soon for steroid Retry zyrtec 10mg daily ICD-9 : 477.9 ICD-10 : J30.2 10/10/2016 Appointment: María Elena Appiah WPtel: [address] [place], [place] [phone] FOLLOW UP 10/10/2016 Patient Education: Patient Medication Summary Completed 10/10/2016 Appointment: María Elena Appiah WPtel: [address] [place], [place] [phone] 10/02 reschedule `sl RESCHEDULED 10/02/2016 Visit Plan: See surgery for removal of n ew left arm lesion and right foot lesion Lyrica to use next month for left arm paresthesias Continue current meds Discussed sunscreen/sunblock combo 09/19/2016 Appointment: María Elena Appiah WPtel: [address] [place], [place] [phone] 09/18 confirmed ~sl FOLLOW UP 09/19/2016 Patient Education: Patient Medication Summary Completed 09/19/2016 Patient Education: Patient Medication Summary Completed 09/18/2016 Care Plan: MAMMOGRAM BOTH BREASTS LOINC : 82528-6 Pending 09/18/2016 Visit Plan: Discussed that needs [...] sinuses 08/24/2016 Appointment: María Elena Appiah WPtel: [address] [place], [place] [phone] ACUTE ILLNESS 08/24/2016 Patient Education: Patient Medication Summary Completed 08/24/2016 Patient Education: Patient Medication Summary Completed 08/23/2016 Care Plan: MAMMOGRAM SCREENING LOINC : 2 6347-5 Pending 08/23/2016 Visit Plan: Finish doxycycline Add Breo 100/25 1 p BID for 2 weeks If not improving within next 2 days will get CXR 08/16/2016 Appointment: María Elena Appiah WPtel: [address] [place], [place] [phone] ACUTE ILLNESS 08/16/2016 Patient Education: Patient Medication Summary Completed 08/16/2016 Visit Plan: Supportive care. Rest, Fluid s, Tylenol/Motrin prn fever or bodyaches. Notify if worsening symptoms. Doxycyline and Prednisone 08/10/2016 Appointment: María Elena Appiah WPtel: [address] [place] [address] 08/09 lm`sl....confirmed-sp FOLLOW UP 09/2015 Patient Education: Patient Medication Summary Completed 08/10/2016 Visit Plan: Saline nasal flushes prn. Ty lenol/Motrin prn headache. Notify if persists/symptoms worsening. Dexamethasone 8mg IM today May use coricedan and mucinex 08/02/2016 Appointment: María Elena Appiah WPtel: [address] [place] [address] ACUTE ILLNESS 08/02/2016 Patient Education: Patient Medication Summary Completed 08/02/2016 Visit Plan: Cryotherapy as above and lef t forearm lesion removal as above with 5-0 punch biopsy and sent to path Return in 10 days for suture removal 08/01/2016 Appointment: María Elena Appiah WPtel: [address] [place], [place] [phone] 07/31 confirmed`~sl OFFICE SURGERY 08/01/2016 Patient Education: Patient Medication Summary Completed 08/01/2016 Visit Plan: Stop clindamycin Check CBC, CMP, ESR now/STAT 07/27/2016 Appointment: María Elena Appaih WPtel: [address] [place] [address] ACUTE ILLNESS 07/27/2016 Patient Education: Patient Medication Summary Completed 07/27/2016 Visit Plan: Update lab and check ABIs to start with Will likely need cardiology evaluation to rule out PVD Clindamycin for 10 days Daily yogurt or probiotic Will return for removal of left arm lesions 07/20/2016 Appointment: María Elena Appiah WPtel: [address] [place] [address] ACUTE ILLNESS 07/20/2016 Patient Education: Patient Medication Summary Completed 07/20/2016 Patient Education: Patient Medication Summary Completed 07/20/2016 Care Plan: MAMMOGRAM BOTH BREASTS LOINC : 84947-2 Pending 07/20/2016 Care Plan: US EXAM CHEST LOINC : 91009-4 Pending 07/20/2016 Visit Plan: Wound culture collected from left great toe Appearance is somewhat staph like Rx as above Wound cleanser and skin care reviewed May need to add oral antibiotic if sores do not heal or continue to reoccur 07/06/2016 Appointment: Loan Sánchez [address] [place] [address] ACUTE ILLNESS 07/06/2016 Patient Education: Patient Medication Summary Completed 07/06/2016 Appointment: María Elena Appiah WPtel: [address] [place] [address] [place] INJECTION 05/25/2016 Patient Education: Patient Medication Summary Completed 05/25/2016 Visit Plan: Saline nasal flushes prn. Ty lenol/Motrin prn headache. Notify if persists/symptoms worsening. Dexamethasone and Rocephin given 04/26/2016 Appointment: María Elena Appiah WPtel: [address] [place] [address] ACUTE ILLNESS 04/26/2016 Patient Education: Patient Medication Summary Completed 04/26/2016 Visit Plan: Check CBC, CMP, TSH, FreeT4, HbA1C, estradiol, lipids in AM 03/02/2016 Appointment: María Elena Appiah WPtel: [address] [place], [place] [phone] 03/01 lm~sl ACUTE ILLNESS 03/02/2016 Patient Education: Patient Medication Summary Completed 03/02/2016 Visit Plan: Exam is nearly normal Needs to be taking daily antihistamine Would prefer to use oral steroids instead of shot but patient insist that oral steroids cause horrible headaches for her Will given kenalog IM instead 02/09/2016 Appointment: Loan Sánchez [address] [place] [address] ACUTE ILLNESS 02/09/2016 Patient Education: Patient Medication Summary Completed 02/09/2016 Visit Plan: Culture urine Macrobid DC xa nax Trial of Ativan 1mg q HS 01/24/2016 Appointment: María Elena Appiah WPtel: [address] [place] [address] ACUTE ILLNESS 01/24/2016 Patient Education: Patient Medication Summary Completed 01/24/2016 Visit Plan: No steroid or rocephin injec tion warranted Can have oral prednisone Continue current home regimen Needs to follow up with Dr Sanchez if problems persist 12/23/2015 Appointment: Loan Sánchez [address] [place] [address] ACUTE ILLNESS 12/23/2015 Patient Education: Patient Medication Summary Completed 12/23/2015 Visit Plan: Saline nasal flushes prn. Ty lenol/Motrin prn headache. Notify if persists/symptoms worsening. Kenalog 40mg IM today 12/08/2015 Appointment: María Elena Appiah WPtel: [address] [place] [address] 12/06 confirmed~ ACUTE ILLNESS 12/08/2015 Patient Education: Patient Medication Summary Completed 12/08/2015 Appointment: María Elena Appiah WPtel: [address] [place] [address] ACUTE ILLNESS 11/18/2015 Patient Education: Patient Medication Summary Completed 10/11/2015 Appointment: María Elena Appiah WPtel: [address] [place] [address] [place] INJECTION 10/07/2015 Patient Education: Patient Medication Summary Completed 10/07/2015 Visit Plan: Check renal arterial doppler s and ECHO Change amlodopine to lotrel 5/20mg q HS Will need stress test as well Check CMP, uric acid, ESR 10/06/2015 Appointment: María Elena Appiah WPtel: [address] [place], [place] [phone] ACUTE ILLNESS 10/06/2015 Patient Education: Patient Medication Summary Completed 10/06/2015 Patient Education: [facility] - Saving AutoInj - Amlodipine Besylate - 18-64 - Dynamic Portal ID Completed 10/06/2015 Appointment: María Elena Appiah WPtel: [address] [place], [place] [phone] [place] FOLLOW UP 09/22/2015 Visit Plan: Cephalexin 500 mg PO bid Mery ly topical Mupirocin to lesions on left lateral neck and face Follow-up in one week. Sooner if symptoms worsen 09/14/2015 Appointment: June Flores WPtel: [address] [place], [place] [phone] ACUTE ILLNESS 09/14/2015 Patient Education: Patient Medication Summary Completed 09/14/2015 Visit Plan: Change bystolic to bedtime d osing and amlodopine to morning dosing Cryotherapy as above to AKs 09/07/2015 Appointment: Maíra Elena Appiah WPtel: [address] [place] [address] 09/06 appointment made and confirmed ~ FOLLOW UP 09/07/2015 Patient Education: Patient Medication Summary Completed 09/07/2015 Visit Plan: Increase bystolic back to 20 mg daily but will split and take 10mg in AM and 10mg in PM Stress Reducers 08/18/2015 Appointment: María Elena Appiah WPtel: [address] [place], [place] [phone] 08/17/15 appt confirmed cn ACUTE ILLNESS 08/18 Patient Education: Patient Medication Summary Completed 08/18/2015 Appointment: María Elena Appiah WPtel: [address] [place], [place] [phone] [place] BP CHECK 07/07/2015 Patient Education: Patient Medication Summary Completed 07/07/2015 Appointment: María Elena Appiah WPtel: [address] [place] [address] BP CHECK 06/24/2015 Patient Education: Patient Medication Summary Completed 06/24/2015 Appointment: María Elena Appiah WPtel: [address] [place] [address] BP CHECK 06/21/2015 Patient Education: Patient Medication Summary Completed 06/21/2015 Visit Plan: Lab discussed Continue curre nt meds and lifestyle modification Recheck lab in 6mos 06/16/2015 Appointment: María Elena Appiah WPtel: [address] [place] [address] 06/15 confirmed FOLLOW UP 06/16/2015 Patient Education: Patient Medication Summary Completed 06/16/2015 Patient Education: Patient Medication Summary Completed 06/15/2015 Visit Plan: Increase cymbalta to 60mg q HS Keep clonidine at current dose Recheck 2weeks Change xanax to klonopin 06/02/2015 Appointment: María Elena Appiah WPtel: [address] [place] [address] 06/02 lm FOLLOW UP 06/02/2015 Patient Education: Patient Medication Summary Completed 06/02/2015 Appointment: María Elena Appiah WPtel: [address] [place] [address] ACUTE ILLNESS 05/24/2015 Visit Plan: Increase clonidine to 0.2mg q HS Add cymbalta 30mg q HS Recheck 2weeks Stress Reducers Check fasting lab Discussed sleep study 05/20/2015 Appointment: María Elena Appiah WPtel: [address] [place] [address] ACUTE ILLNESS 05/20/2015 Patient Education: Patient Medication Summary Completed 05/20/2015 Patient Education: [facility] - Saving [employer]j - Cymbalta - 18-64 - Dynamic Portal ID Completed 05/20/2015 Appointment: María Elena Appiah WPtel: [address] [place] [address] BP CHECK 05/19/2015 Patient Education: Patient Medication Summary Completed 05/19/2015 Visit Plan: Topical Bactroban alternatin g with topical betamethasone Recheck 2weeks 05/10/2015 Appointment: María Elena Appiah WPtel: [address] [place], [place] [phone] 05/07 vm cn...05/07 appt confirmed OFFICE SURGER Y 05/10/2015 Patient Education: Patient Medication Summary Completed 05/10/2015 Referral: Patrick Chandler WPtel: [address] [id number] [place] Referral Initiated 05/04/2015 Visit Plan: Saline nasal flushes prn. Ty lenol/Motrin prn headache. Notify if persists/symptoms worsening. Depomedrol 40mg IM today 03/16/2015 Appointment: María Elena Appiah WPtel: [address] [place] [address] ACUTE ILLNESS 03/16/2015 Patient Education: Patient Medication Summary Completed 03/16/2015 Appointment: María Elena Appiah WPtel: [address] [place] [address] ER Follow UP 03/09/2015 Visit Plan: Cryotherapy to lesions as ab ove 10/27/2014 Appointment: María Elena Appiah WPtel: [address] [place], [place] [phone] OFFICE SURGERY 10/27/2014 Patient Education: Patient Medication Summary Completed 10/27/2014 Appointment: June Flores WPtel: [address] [place], [place] [phone] ACUTE ILLNESS 09/11/2014 Patient Education: Patient Medication Summary Completed 09/11/2014 Visit Plan: Lab discussed Lipitor 10mg d aily Coenzyme Q-10 400mg daily Vitamin D3 5000u daily Recheck lipids with LFTs in 3mos then fwup 08/31/2014 Appointment: María Elena Appiah WPtel: [address] [place] [address] 08/28 voicemail FOLLOW UP 08/31/2014 Patient Education: Patient Medication Summary Completed 08/31/2014 Appointment: María Elena Appiahtel: [address] [place] [address] LAB 08/27/2014 Appointment: María Elena Appiah WPtel: [address] [place] [address] LAB 08/27/2014 Patient Education: Patient Medication Summary Completed 08/27/2014 Appointment: María Elena Appiah WPtel: [address] [place] [address] ACUTE ILLNESS 07/23/2014 Appointment: María Elena Appiah WPtel: [address] [place] [address] ACUTE ILLNESS 07/21/2014 Patient Education: Patient Medication Summary Completed 07/21/2014 Visit Plan: Kenalog 40mg IM today Contin ue narendra and singulair Add Flonase 07/15/2014 Appointment: María Elena Appiahtel: [address] [place] [address] ACUTE ILLNESS 07/15/2014 Appointment: María Elena Appiah WPtel: [address] [place] [address] ACUTE ILLNESS 07/15/2014 Patient Education: Patient Medication Summary Completed 07/15/2014 Visit Plan: Will do metolazone 2.5mg prn with 6 potassium and see if causes as severe cramping Trial of of seroquel XR 50mg q PM with evening meal and let us know how works 05/18/2014 Appointment: María Elena Appiahtel: [address] [place] [address] 05/15 left message FOLLOW UP 05/18/2014 Patient Education: Patient Medication Summary Completed 05/18/2014 Appointment: María Elena Appiah WPtel: [address] [place] [address] [place] LAB 05/14/2014 Patient Education: Patient Medication Summary Completed 05/14/2014 Appointment: María Elena Appiah WPtel: [address] [place], [place] [phone] [place] INJECTION 04/22/2014 Visit Plan: Rocephin and Kenalog today a nd finish abx given from urgent care 04/21/2014 Appointment: María Elena Appiah WPtel: [address] [place] [address] [place] INJECTION 04/21/2014 Patient Education: Patient Medication Summary Completed 04/21/2014 Appointment: June Flores WPtel: [address] [place] [address] ACUTE ILLNESS 03/04/2014 Patient Education: Patient Medication Summary Completed 03/04/2014 Appointment: María Elena Appiah WPtel: [address] [place] [address] [place] INJECTION 02/27/2014 Patient Education: Patient Medication Summary Completed 02/27/2014 Visit Plan: Cryotherapy as above to all lesions Patient wants to try no meds for insomnia for a while and see how goes 01/13/2014 Appointment: María Elena Appiah WPtel: [address] [place] [address] OFFICE SURGERY 01/13/2014 Patient Education: Patient Medication Summary Completed 01/13/2014 Visit Plan: Stop Melatonin Stop Soma Tri al of trazadone 75mg q HS See ENT for possible tubes as has had chronic ETD and serous otitis media with numerous steroids 12/24/2013 Appointment: María Elena Appiah WPtel: [address] [place] [address] ACUTE ILLNESS 12/24/2013 Patient Education: Patient Medication Summary Completed 12/24/2013 Visit Plan: Saline nasal flushes prn. Ty lenol/Motrin prn headache. Notify if persists/symptoms worsening. 11/12/2013 Appointment: María Elena Appiah: [address] [place], [place] [phone] ACUTE ILLNESS 11/12/2013 Patient Education: Patient Medication Summary Completed 11/12/2013 Appointment: María Elena Appiah WPtel: [address] [place], [place] [phone] ACUTE ILLNESS 10/21/2013 Patient Education: Patient Medication Summary Completed 10/21/2013 Visit Plan: Sleep hygiene and sleep rout ine Melatonin 10mg q HS Support stockings and observe 09/22/2013 Appointment: María Elena Appiah WPtel: [address] [place] [address] ACUTE ILLNESS 09/22/2013 Patient Education: Patient Medication Summary Completed 09/22/2013 Appointment: June Flores WPtel: [address] [place] [address] ACUTE ILLNESS 08/27/2013 Patient Education: Patient Medication Summary Completed 08/27/2013 Visit Plan: Proceed with CT scan of head /neck Proceed with occipital nerve injections Butrans 20mcg patch weekly until can get into see Dr. Mcdonough for injections 08/04/2013 Appointment: María Elena Appiah WPtel: [address] [place] [address] FOLLOW UP 08/04/2013 Patient Education: Patient Medication Summary Completed 08/04/2013 Visit Plan: OMT done Daily neck stretche s, moist heat Increase Celebrex to 200mg BID Add flexeril 07/23/2013 Appointment: María Elena Appiah WPtel: [address] [place] [address] 07/22 voicemail FOLLOW UP 07/23/2013 Patient Education: Patient Medication Summary Completed 07/23/2013 Appointment: María Elena Appiah WPtel: [address] [place] [address] ACUTE ILLNESS 06/23/2013 Patient Education: Patient Medication Summary Completed 06/23/2013 Appointment: María Elena Appiah WPtel: [address] [place] [address] ACUTE ILLNESS 05/26/2013 Patient Education: Patient Medication Summary Completed 05/26/2013 Visit Plan: Decrease clonidine to 0.1mg TID If BP remains stable consider decreasing amlodopine Prednisone for 5 days BP check in 1mo 04/16/2013 Appointment: María Elena Appiah WPtel: [address] [place] [address] 04/14 pt called and confirmed appt FOLLOW UP 04/16/2013 Patient Education: Patient Medication Summary Completed 04/16/2013 Appointment: María Elena Appiah WPtel: [address] [place] [address] ACUTE ILLNESS 03/05/2013 Patient Education: Patient Medication Summary Completed 03/05/2013 Visit Plan: Pt has MARIA ELENA on with Dr. Mcdonough Continue Butrans patch Refill Hydrocodone early tomorrow 12/23/2012 Appointment: María Elena Appiah WPtel: [address] [place] [address] FOLLOW UP 12/23/2012 Patient Education: Patient Medication Summary Completed 12/23/2012 Appointment: Lashawn Eckert WPtel: [address] [place] [address] ACUTE ILLNESS 12/16/2012 Patient Education: Patient Medication Summary Completed 12/16/2012 Visit Plan: Proceed with updated MRI of LS spine Continue gabapentin and add soma and diclofenac Will likely need to go for another epidural 12/09/2012 Appointment: María Elena Appiah WPtel: [address] [place] [address] ACUTE ILLNESS 12/09/2012 Patient Education: Patient Medication Summary Completed 12/09/2012 Visit Plan: Injection as above Finish me drol dose pack Chiropracter this afternoon 12/04/2012 Appointment: María Elena Appiah WPtel: [address] [place] [address] ACUTE ILLNESS 12/04/2012 Patient Education: Patient Medication Summary Completed 12/04/2012 Appointment: Mary Tillman WPtel: [address] [place] [address] FOLLOW UP 11/22/2012 Patient Education: Patient Medication Summary Completed 11/22/2012 Appointment: María Elena Appiah WPtel: [address] [place] [address] ACUTE ILLNESS 11/21/2012 Patient Education: Patient Medication Summary Completed 11/21/2012 Appointment: María Elena Appiah WPtel: [address] [place] [address] BP CHECK 11/07/2012 Patient Education: Patient Medication Summary Completed 11/07/2012 Visit Plan: reports extra clonidine and extra amlodipine and extra alprazalam. extra Ketolorac and promethazine last night. Bystolic 10 mg QAM and will continue all other blood pressure meds. Pt. encouraged to rest and hydrate. Discussed stroke and [place] symptoms. Pt. instructed to seek ER eval if symptoms worsen or headache persists. Pt. agrees to ER eval/EMS transport if symptoms worsen. BP re-check. 10/29/2012 Appointment: Lashawn Eckert WPtel: [address] [place] [address] ACUTE ILLNESS 10/29/2012 Patient Education: Patient Medication Summary Completed 10/29/2012 Appointment: María Elena Appiah WPtel: [address] [place] [address] ACUTE ILLNESS 10/14/2012 Patient Education: Patient Medication Summary Completed 10/14/2012 Appointment: María Elena Appiah WPtel: [address] [place] [address] 09/27/2012 Patient Education: Patient Medication Summary Completed 09/27/2012 Appointment: María Elena Appiah WPtel: [address] [place] [address] ACUTE ILLNESS 09/25/2012 Patient Education: Patient Medication Summary Completed 09/25/2012 Appointment: María Elena Appiah WPtel: [address] [place], [place] [phone] BP CHECK 09/24/2012 Appointment: María Elena Appiah WPtel: [address] [place], [place] [phone] ACUTE ILLNESS 08/29/2012 Patient Education: Patient Medication Summary Completed 08/29/2012 Visit Plan: Cryotherapy as above See Karlos m for right ear lesion--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 ACUTE ILLNESS 05/06/2012 Patient Education: Patient Medication Summary Completed 05/06/2012 Visit Plan: Pt wants to hold on any furt her sleep medications 04/03/2012 Appointment: María Elena Appiah WPtel: [address] [place], [place] [phone] FOLLOW UP 04/03/2012 Patient Education: Patient Medication Summary Completed 04/03/2012 Appointment: María Elena Appiah WPtel: [address] [place], [place] [phone] FOLLOW UP 03/19/2012 Patient Education: Patient Medication Summary Completed 03/19/2012 Appointment: María Elena Appiah WPtel: [address] [place], [place] [phone] BP CHECK 02/22/2012 Patient Education: Patient Medication Summary Completed 02/22/2012 Appointment: María Elena Appiah WPtel: [address] [place] [address] BP CHECK 02/21/2012 Patient Education: Patient Medication Summary Completed 02/21/2012 Visit Plan: Doxycycline and bactroban fo r foot Supportive care on ankles and knees Add norvasc for BP 02/20/2012 Appointment: María Elena Appiah WPtel: [address] [place] [address] ER Follow UP 02/20/2012 Patient Education: Patient Medication Summary Completed 02/20/2012 Appointment: María Elena Appiah WPtel: [address] [place] [address] ACUTE ILLNESS 01/30/2012 Patient Education: Patient Medication Summary Completed 01/30/2012 Appointment: María Elena Appiah WPtel: [address] [place] [address] ACUTE ILLNESS 01/24/2012 Patient Education: Patient Medication Summary Completed 01/24/2012 Visit Plan: Daily back stretches, moist heat, Biofreeze prn OMT done 01/10/2012 Appointment: María Elena Appiah WPtel: [address] [place] [address] ACUTE ILLNESS 01/10/2012 Patient Education: Patient Medication Summary Completed 01/10/2012 Appointment: María Elena Appiah WPtel: [address] [place] [address] FOLLOW UP 12/11/2011 Patient Education: Patient Medication Summary Completed 12/11/2011 Appointment: María Elena Appiah WPtel: [address] [place] [address] ACUTE ILLNESS 11/09/2011 Patient Education: Patient Medication Summary Completed 11/09/2011 Appointment: María Elena Appiah WPtel: [address] [place] [address] ACUTE ILLNESS 09/13/2011 Patient Education: Patient Medication Summary Completed 09/13/2011 Visit Plan: Check CBC, TSH, Free T4, CMP , ESR, Vit D, B12 now Start Prednisone today 08/31/2011 Appointment: María Elena Appiahtel: [address] [place] [address] ACUTE ILLNESS 08/31/2011 Patient Education: Patient Medication Summary Completed 08/31/2011 Appointment: María Elena Appiahtel: [address] [place] [address] [place] INJECTION 07/20/2011 Patient Education: Patient Medication Summary Completed 07/20/2011 Visit Plan: Continue current meds Monite r BP Cont stretches from PT 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 07/06/2011 Appointment: María Elena Appiahtel: [address] [place] [address] FOLLOW UP 07/06/2011 Patient Education: Patient Medication Summary Completed 07/06/2011 Appointment: María Elena Appiahtel: [address] [place] [address] BP CHECK 06/06/2011 Patient Education: Patient Medication Summary Completed 06/06/2011 Visit Plan: Add Bystolic at 2.5mg QAM Ad d Robaxin 750mg 2 po q HS BP check in 2wks 05/22/2011 Appointment: María Elena Appiahtel: [address] [place] [address] FOLLOW UP 05/22/2011 Patient Education: Patient Medication Summary Completed 05/22/2011 Appointment: María Elena Appiahtel: [address] [place] [address] ER Follow UP 05/09/2011 Patient Education: Patient Medication Summary Completed 05/09/2011 Appointment: María Elena Appiahtel: [address] [place], [place] [phone] [place] FOLLOW UP 02/22/2011 Visit Plan: Rx written for Hydrocodone 1 0/325mg #240 See Ortho 02/14/2011 Appointment: María Elena Appiah WPtel: [address] [place] [address] [place] OMT 02/14/2011 Patient Education: Patient Medication [...] lab work. 02/03/2011 Appointment: Lashawn Eckert WPtel: [address] [place] [address] ACUTE ILLNESS 02/03/2011 Patient Education: Patient Medication Summary Completed 02/03/2011 Visit Plan: OMT done Cont daily stretche s 01/31/2011 Appointment: María Elena Appiah WPtel: [address] [place] [address] ACUTE ILLNESS 01/31/2011 Patient Education: Patient Medication Summary Completed 01/31/2011 Visit Plan: Continue pain meds OMT done Proceed with PT No work this summer01/25/2011 Appointment: María Elena Appiah WPtel: [address] [place] [address] ACUTE ILLNESS 01/25/2011 Patient Education: Patient Medication Summary Completed 01/25/2011 Visit Plan: Start PT Long discussion abo ut getting pain meds from only us and can only have max of 4grams of tylenol per day Change to Hydrocodone 10/325mg 1- 2 po TID prn pain--#180 called to Radha 01/18/2011 Appointment: María Elena Appiah WPtel: [address] [place], [place] [phone] FOLLOW UP 01/18/2011 Patient Education: Patient Medication Summary Completed 01/18/2011 Visit Plan: Daily back stretches, moist heat, Biofreeze prn 11/29/2010 Appointment: María Elena Appiah WPtel: [address] [place], [place] [phone] ER Follow UP 11/29/2010 Patient Education: Patient Medication Summary Completed 11/29/2010 Visit Plan: Saline nasal flushes prn. Ty lenol/Motrin prn headache. Notify if persists/symptoms worsening. Finish augmentin Add Medrol Dose Pack 10/10/2010 Appointment: María Elena Appiah WPtel: [address] [place], [place] [phone] ACUTE ILLNESS 10/10/2010 Patient Education: Patient Medication Summary Completed 10/10/2010 Visit Plan: Cryotherapy x3 to multiple l esions on both forearms 07/19/2010 Appointment: María Elena Appiah WPtel: [address] [place] [address] OFFICE SURGERY 07/19/2010 Patient Education: Patient Medication Summary Completed 07/19/2010 Appointment: María Elena Appiah WPtel: [address] [place], [place] [phone] BP CHECK 07/06/2010 Patient Education: Patient Medication Summary Completed 07/06/2010 Appointment: María Elena Appiah WPtel: [address] [place], [place] [phone] BP CHECK 06/30/2010 Patient Education: Patient Medication Summary Completed 06/30/2010 Appointment: María Elena Appiahtel: [address] [place], [place] [phone] BP CHECK 06/20/2010 Patient Education: Patient Medication Summary Completed 06/20/2010 Visit Plan: Change Diovan to Exforge 160 /5mg QD OMT done to thoracics BP check in 2wks 06/07/2010 Appointment: María Elena Appiah WPtel: [address] [place] [address] FOLLOW UP 06/07/2010 Patient Education: Patient Medication Summary Completed 06/07/2010 Appointment: María Elena Appiah WPtel: [address] [place] [address] BP CHECK 06/03/2010 Patient Education: Patient Medication Summary Completed 06/03/2010 Appointment: María Elena Appiah WPtel: [address] [place] [address] BP CHECK 06/01/2010 Patient Education: Patient Medication Summary Completed 06/01/2010 Visit Plan: Irritated skin tags to left neck x2 excised at base with scissors and base cauterized 05/30/2010 Appointment: María Elena Appiahtel: [address] [place] [address] OFFICE SURGERY 05/30/2010 Patient Education: Patient Medication Summary Completed 05/30/2010 Visit Plan: Saline nasal flushes prn. Ty lenol/Motrin prn headache. Notify if persists/symptoms worsening. Restart Nasonex Has allergy testing set for May 25 04/27/2010 Appointment: María Elena Appiahtel: [address] [place] [address] ACUTE ILLNESS 04/27/2010 Patient Education: Patient Medication Summary Completed 04/27/2010 Visit Plan: Saline nasal flushes prn. Ty lenol/Motrin prn headache. Notify if persists/symptoms worsening. Omnaris BID plus injections 04/05/2010 Appointment: María Elena Appiah WPtel: [address] [place] [address] ACUTE ILLNESS 04/05/2010 Patient Education: Patient Medication Summary Completed 04/05/2010 Visit Plan: Saline nasal flushes prn. Ty lenol/Motrin prn headache. Notify if persists/symptoms worsening. 03/09/2010 Appointment: María Elena Appiah WPtel: [address] [place], [place] [phone] ACUTE ILLNESS 03/09/2010 Patient Education: Patient Medication Summary Completed 03/09/2010 Visit Plan: Cont Clonidine as is Cont Pr emarin Fwup with surgery as scheduled 03/03/2010 Appointment: María Elena Appiah WPtel: [address] [place] [address] FOLLOW UP 03/03/2010 Patient Education: Patient Medication Summary Completed 03/03/2010 Visit Plan: Check Pelvic US now Discusse tacho Dand C vs Hysterectomy 01/17/2010 Appointment: María Elena Appiah WPtel: [address] [place] [address] ACUTE ILLNESS 01/17/2010 Patient Education: Patient Medication Summary Completed 01/17/2010 Visit Plan: Check fasting lab and schedu le Mammogram 2gm Na Diet Trial of Ambien 10mg qhs Fwup pending lab results 12/27/2009 Appointment: María Elena Appiah WPtel: [address] [place], [place] [phone] ESTABLISHED PATIENT 12/27/2009 Patient Education: Patient Medication Summary Completed 12/27/2009 Referral: Canelo Overton WPtel: [address] [id number] [place] Referral Initiated Referral: Philipp Flores WPtel: [address] [id number] [place] Referral Appointment Requested Instructions Comment . [...] regimen Needs to follow up with Dr Sancehz if problems persist . Saline nasal flushes [...] 1mo . Pt has MARIA ELENA on Thursday with Dr. Mcdonough Continue Butrans patch Refill [...] to rest and hydrate. Discussed stroke and [place] symptoms. Pt. instructed to seek ER eval [...]
--- OUTSIDE RECORDS SUMMARY | 2020-03-13 04:30 | XMS REPORT | CCD ---
Author Author Gale Appiah D.O. Organization [facility] Address [address] [place] [address] Phone Care Team Providers Care Media Intern Name Role Phone María Elena Appiah D.O., PP Unavailable CCM Unavailable Summary Purpose Interface Exchange Insurance Providers Payer name Policy type / Coverage type Covered democrat ID Effective Begin Date Effective End Date [facility] Commercial Insurance [id number] Unknown Family History Family History data not found Social History Social History Element Codes Description Effective Dates Tobacco history SNOMED CT: 582129775 Never smoker 05/22/2011 Allergies, Adverse Reactions, Alerts [...] IC D-9: 917.2 ICD-10: S90.821A 02/12/2020 Active Type 2 diabetes mellitus with hyperglycemia [...] hip ICD-9: 216.7 ICD-10: D23.72 01/24/2017 Active Localized edema ICD-9: 782.3 ICD-10: R60.0 12/13/2016 Active 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 ICD-10: [...] Fill Instructions Keflex 500 mg capsule RxNorm: 332296 1 Capsule(s) Oral two time s a day 02/12/2020 02/19/2020 Active Lipitor 10 mg tablet RxNorm: 556446 TAKE ONE TABLET BY MOUTH DAILY 01/23/2020 No Stop Date Active Januvia 100 mg tablet RxNorm: 332572 TAKE ONE TABLET BY MOUTH DAILY 01/22/2020 No Stop Date Active gabapentin 300 mg capsule RxNorm: 279102 TAKE ONE CAPSU LE BY MOUTH EVERY NIGHT AT BEDTIME 01/22/2020 No Stop Date Active allopurinol 300 mg tablet RxNorm: 832551 TAKE ONE TABLET BY LOPEZ TH DAILY 01/22/2020 No Stop Date Active Klor-Con 8 mEq tablet,extended release RxNorm: 473307 T FARRUKH ONE TABLET BY MOUTH TWICE A DAY 01/22/2020 No Stop Date Active doxepin 25 mg capsule RxNorm: 2907305 TAKE ONE CAPSULE B Y MOUTH EVERY NIGHT AT BEDTIME NEEDED FOR SLEEP 01/22/2020 No Stop Date Active glimepiride 4 mg tablet RxNorm: 527715 1 Tablet(s) Oral two times a day replaces 2mg dose 01/13/2020 04/12/2020 Active lisinopril 40 mg tablet RxNorm: 402139 1 Tablet(s) Oral QD repl aces 20mg dose 01/13/2020 04/12/2020 Active hydrocodone 10 mg-acetaminophen 325 mg tablet RxNorm: 665824 1-2 Tablet(s) Oral three times a day as needed for pain 01/12/2020 No Stop Date Active cyclobenzaprine 10 mg tablet RxNorm: 347203 TAKE ONE TA BLET BY MOUTH THREE TIMES A DAY NEEDED FOR MUSCLE SPASMS 01/05/2020 No Stop Date Active triamterene 75 mg-hydrochlorothiazide 50 mg tablet RxNorm: 3 24286 TAKE ONE TABLET BY MOUTH DAILY 12/29/2019 No Stop Date Active Klor-Con 8 mEq tablet,extended release RxNorm: 859982 T FARRUKH ONE TABLET BY MOUTH TWICE A DAY 12/19/2019 01/21/2020 Inactive allopurinol 300 mg tablet RxNorm: 600813 TAKE ONE TABLET BY LOPEZ TH DAILY 12/19/2019 01/21/2020 Inactive glimepiride 2 mg tablet RxNorm: 901945 TAKE ONE TABLET BY MOUTH TWICE A DAY 12/19/2019 01/12/2020 Inactive hydrocodone 10 mg-acetaminophen 325 mg tablet RxNorm: 937578 1-2 Tablet(s) Oral three times a day as needed for pain 12/10/2019 01/11/2020 Inactive Januvia 100 mg tablet RxNorm: 128164 1 Tablet(s) Oral QD 11/20/2019 0 11/20/2019 Inactive glimepiride 2 mg tablet RxNorm: 823052 1 Tablet(s) Oral two sawyer es a day 11/20/2019 12/18/2019 Inactive cyclobenzaprine 10 mg tablet RxNorm: 067915 TAKE ONE TA BLET BY MOUTH THREE TIMES A DAY NEEDED FOR MUSCLE SPASMS 11/17/2019 01/04/2020 Inactive doxepin 25 mg capsule RxNorm: 6376240 TAKE ONE CAPSULE B Y MOUTH EVERY NIGHT AT BEDTIME NEEDED FOR SLEEP 11/16/2019 01/21/2020 Inactive Klor-Con 8 mEq tablet,extended release RxNorm: 401799 T FARRUKH ONE TABLET BY MOUTH TWICE A DAY 11/16/2019 12/18/2019 Inactive hydrocodone 10 mg-acetaminophen 325 mg tablet RxNorm: 479111 1-2 Tablet(s) Oral three times a day as needed for pain 11/10/2019 12/09/2019 Inactive cyclobenzaprine 10 mg tablet RxNorm: 669955 TAKE ONE TA BLET BY MOUTH THREE TIMES A DAY NEEDED FOR MUSCLE SPASMS 10/23/2019 11/16/2019 Inactive duloxetine 60 mg capsule,delayed release RxNorm: 547583 1 Capsu le(s) Oral QD 10/17/2019 04/13/2020 Active celecoxib 200 mg capsule RxNorm: 487571 1 Capsule(s) Or al two times a day as needed for pain 10/17/2019 01/14/2020 Inactive Singulair 10 mg tablet RxNorm: 271895 1 Tablet(s) Oral QD 10/17/2019 04/14/2020 Active metoprolol tartrate 100 mg tablet RxNorm: 298646 1 Tabl et(s) Oral two times a day 10/17/2019 04/13/2020 Active clonidine HCl 0.1 mg tablet RxNorm: 185405 1 Tablet(s) Oral fou r times a day 10/17/2019 04/13/2020 Active Steglatro 15 mg tablet RxNorm: 7570516 1 Tablet(s) Oral QD 10/17/19 20 No Stop Date Active lisinopril 20 mg tablet RxNorm: 068670 1 Tablet(s) Oral QD 10/17/19 20 01/12/2020 Inactive gabapentin 300 mg capsule RxNorm: 107647 1 Capsule(s) O ral every night at bedtime 10/17/2019 01/15/2020 Inactive Klor-Con 8 mEq tablet,extended release RxNorm: 375149 1 Tablet(s) Oral two times a day 10/17/2019 11/15/2019 Inactive Januvia 100 mg tablet RxNorm: 540407 1 Tablet(s) Oral QD 10/17/2019 0 01/12/2020 Inactive Lipitor 10 mg tablet RxNorm: 492014 1 Tablet(s) Oral QD 10/17/2019 Inactive Glyxambi 25 mg-5 mg tablet RxNorm: 3407321 1 Tablet(s) Oral QD 01/202010/16/2019 Inactive Patient will bring in copay discount card as well Glyxambi 25 mg-5 mg tablet RxNorm: 9001889 1 Tablet(s) Oral QD 01/202010/14/2019 Inactive Patient will bring in copay discount card as well Keflex 500 mg capsule RxNorm: 341714 1 Capsule(s) Oral two time s a day 10/07/2019 10/14/2019 Inactive Premarin 1.25 mg tablet RxNorm: 413348 1 Tablet(s) Oral QD 09/30/1906/25/2020 Active hydrocodone 10 mg-acetaminophen 325 mg tablet RxNorm: 919530 1-2 Tablet(s) Oral three times a day as needed for pain 09/30/2019 09/30/2019 Inactive baclofen 10 mg tablet RxNorm: 825904 TAKE ONE TABLET BY MOUTH THREE TIMES A DAY NEEDED 09/19/2019 No Stop Date Active gabapentin 300 mg capsule RxNorm: 238220 TAKE ONE CAPSU LE BY MOUTH EVERY NIGHT AT BEDTIME 09/19/2019 10/16/2019 Inactive Klor-Con 8 mEq tablet,extended release RxNorm: 114598 T FARRUKH ONE TABLET BY MOUTH TWICE A DAY 1 Tablet(s) Oral two times a day 09/19/2019 10/16/2019 [place] [facility] hydrocodone 10 mg-acetaminophen 325 mg tablet RxNorm: 934485 1-2 Tablet(s) Oral three times a day as needed for pain 09/19/2019 09/29/2019 Inactive duloxetine 60 mg capsule,delayed release RxNorm: 416509 TAKE ONE CAPSULE BY MOUTH DAILY 09/11/2019 10/16/2019 Inactive Lipitor 10 mg tablet RxNorm: 853455 TAKE ONE TABLET BY MOUTH AT BEDTIME 09/11/2019 10/16/2019 Inactive lisinopril 20 mg tablet RxNorm: 440941 TAKE ONE TABLET BY MOUTH DAILY .... THIS REPLACE 10MG TABLETS 09/11/2019 10/16/2019 Inactive triamterene 75 mg-hydrochlorothiazide 50 mg tablet RxNorm: 3 63909 TAKE ONE TABLET BY MOUTH DAILY 09/11/2019 12/28/2019 Inactive allopurinol 300 mg tablet RxNorm: 462439 TAKE ONE TABLET BY LOPEZ TH DAILY 09/11/2019 12/18/2019 Inactive celecoxib 200 mg capsule RxNorm: 719744 TAKE ONE CAPSUL E BY MOUTH TWICE A DAY NEEDED FOR PAIN 09/11/2019 10/16/2019 Inactive clonidine HCl 0.1 mg tablet RxNorm: 338269 TAKE ONE TAB LET BY MOUTH FOUR TIMES A DAY 09/11/2019 10/16/2019 Inactive doxepin 25 mg capsule RxNorm: 2990431 1 Capsule(s) Oral every night at bedtime as needed for sleep 08/21/2019 11/15/2019 Inactive hydrocodone 10 mg-acetaminophen 325 mg tablet RxNorm: 414159 1-2 Tablet(s) PO TID 08/12/2019 09/29/2019 Inactive as needed for pa in - Previous quantity #240, will start dosing for #180 in April 2011 per Doctor Td. Medrol (Dustin) 4 mg tablets in a dose pack RxNorm: 438486 Tablet(s) Oral As Directed 07/21/2019 09/29/2019 Inactive Premarin 1.25 mg tablet RxNorm: 967188 1 Tablet(s) Oral QD 07/02/2009/29/2019 Inactive hydrocodone 10 mg-acetaminophen 325 mg tablet RxNorm: 100894 1-2 Tablet(s) PO TID 07/01/2019 08/11/2019 Inactive as needed for pa in - Previous quantity #240, will start dosing for #180 in April 2011 per Doctor Td. gabapentin 300 mg capsule RxNorm: 357610 1 Capsule(s) PO QHS 201809/18/2019 Inactive celecoxib 200 mg capsule RxNorm: 011936 1 Capsule(s) Or al two times a day as needed for pain 06/27/2019 06/27/2019 Inactive doxepin 25 mg capsule RxNorm: 2731540 TAKE ONE CAPSULE B Y MOUTH EVERY NIGHT AT BEDTIME NEEDED FOR SLEEP 06/24/2019 08/20/2019 Inactive Singulair 10 mg tablet RxNorm: 020930 TAKE ONE TABLET BY MOUTH OJSÉ Y 06/24/2019 10/16/2019 Inactive furosemide 40 mg tablet RxNorm: 622755 TAKE ONE TABLET BY MOUTH EVERY MORNING NEEDED FOR EDEMA . TAKE WITH POTASSIUM 06/24/2019 01/12/2020 Inactive lisinopril 20 mg tablet RxNorm: 407680 TAKE ONE TABLET BY MOUTH DAILY .... THIS REPLACE 10MG TABLETS 06/24/2019 09/10/2019 Inactive nystatin-triamcinolone 100,000 unit/g-0.1 % topical cream Rx Norm: 5555322 1 Application Topical two times a day 06/12/2019 06/19/2019 Inactive apply BID for 1 week nystatin-triamcinolone 100,000 unit/g-0.1 % topical cream Rx Norm: 5902617 1 Application Topical two times a day 06/12/2019 06/11/2019 Inactive apply BID for 1 week hydrocodone 10 mg-acetaminophen 325 mg tablet RxNorm: 561905 1-2 Tablet(s) PO QID as needed for pain MUST LAST 30 DAYS 05/28/2019 06/26/2019 Inactiv e (Response to an electronic controlled substance refill request - RxReferenceNumber: [id number]) baclofen 20 mg tablet RxNorm: 903961 1 Tablet(s) PO TID as needed for muscle spasm 05/19/2019 05/27/2019 Inactive gabapentin 300 mg capsule RxNorm: 073510 1 Capsule(s) PO QHS 201805/27/2019 Inactive lisinopril 20 mg tablet RxNorm: 155192 1 Tablet(s) PO Q D TAKE ONE TABLET BY MOUTH DAILY, REPLACES 10 MG DOSE 05/19/2019 06/23/2019 Inactive doxepin 25 mg capsule RxNorm: 2811400 TAKE ONE CAPSULE B Y MOUTH EVERY NIGHT AT BEDTIME NEEDED FOR SLEEP 05/16/2019 06/14/2019 Inactive lisinopril 20 mg tablet RxNorm: 933223 TAKE ONE TABLET BY MOUTH DAILY, REPLACES 10 MG DOSE 05/16/2019 05/18/2019 Inactive Singulair 10 mg tablet RxNorm: 225002 TAKE ONE TABLET BY MOUTH JOSÉ Y 05/16/2019 06/14/2019 Inactive gabapentin 300 mg capsule RxNorm: 483252 1 Capsule(s) PO QHS 201805/04/2019 Inactive estropipate 1.5 mg tablet RxNorm: 187621 1 Tablet(s) PO QD 05/05/2005/27/2019 Inactive estropipate 1.5 mg tablet RxNorm: 202084 1 Tablet(s) PO QD 05/05/2005/04/2019 Inactive gabapentin 300 mg capsule RxNorm: 049718 1 Capsule(s) PO QHS 201805/18/2019 Inactive hydrocodone 10 mg-acetaminophen 325 mg tablet RxNorm: 222909 1-2 Tablet(s) PO QID as needed for pain MUST LAST 30 DAYS 04/25/2019 05/24/2019 Inactiv e (Response to an electronic controlled substance refill request - RxReferenceNumber: [id number]) cyclobenzaprine 10 mg tablet RxNorm: 653030 TAKE ONE TA BLET BY MOUTH THREE TIMES A DAY NEEDED FOR MUSCLE SPASMS 04/24/2019 05/18/2019 Inactive metoprolol tartrate 100 mg tablet RxNorm: 999890 TAKE O NE TABLET BY MOUTH TWICE A DAY 04/24/2019 10/16/2019 Inactive Lyrica 75 mg capsule RxNorm: 485922 1 Capsule(s) PO QHS 03/25/2019 Inactive duloxetine 60 mg capsule,delayed release RxNorm: 392933 TAKE ONE CAPSULE BY MOUTH DAILY 03/21/2019 05/19/2019 Inactive triamterene 75 mg-hydrochlorothiazide 50 mg tablet RxNorm: 3 62364 TAKE ONE TABLET BY MOUTH DAILY 03/21/2019 05/19/2019 Inactive Klor-Con 8 mEq tablet,extended release RxNorm: 881584 T FARRUKH ONE TABLET BY MOUTH TWICE A DAY 03/21/2019 09/18/2019 Inactive Lipitor 10 mg tablet RxNorm: 656841 TAKE ONE TABLET BY MOUTH AT BEDTIME 03/21/2019 09/10/2019 Inactive clonidine HCl 0.1 mg tablet RxNorm: 096829 TAKE ONE TAB LET BY MOUTH FOUR TIMES A DAY 03/21/2019 05/19/2019 Inactive allopurinol 300 mg tablet RxNorm: 422131 TAKE ONE TABLET BY LOPEZ TH DAILY 03/21/2019 05/19/2019 Inactive hydrocodone 10 mg-acetaminophen 325 mg tablet RxNorm: 012945 1-2 Tablet(s) PO QID as needed for pain MUST LAST 30 DAYS 02/28/2019 03/29/2019 Inactiv e (Response to an electronic controlled substance refill request - RxReferenceNumber: [id number]) furosemide 40 mg tablet RxNorm: 854968 TAKE ONE TABLET BY MOUTH EVERY MORNING NEEDED FOR EDEMA . TAKE WITH POTASSIUM 02/21/2019 03/22/2019 Inactive cyclobenzaprine 10 mg tablet RxNorm: 886821 TAKE ONE TA BLET BY MOUTH THREE TIMES A DAY NEEDED FOR MUSCLE SPASMS 02/21/2019 04/21/2019 Inactive lisinopril 20 mg tablet RxNorm: 081651 TAKE ONE TABLET BY MOUTH DAILY, REPLACES 10 MG DOSE 02/21/2019 05/15/2019 Inactive doxepin 25 mg capsule RxNorm: 1828946 TAKE ONE CAPSULE B Y MOUTH EVERY NIGHT AT BEDTIME NEEDED FOR SLEEP 02/21/2019 05/15/2019 Inactive nystatin 100,000 unit/gram topical cream RxNorm: 033161 APPLY TO AFFECTED AREA(S) TWO TIMES A DAY 02/21/2019 03/22/2019 Inactive estradiol 1 mg tablet RxNorm: 171342 2 Tablet(s) PO QD replaces premarin 01/22/2019 05/04/2019 Inactive lisinopril 20 mg tablet RxNorm: 204411 TAKE ONE TABLET BY MOUTH DAILY, REPLACES 10 MG DOSE 01/20/2019 02/18/2019 Inactive cyclobenzaprine 10 mg tablet RxNorm: 137374 TAKE ONE TA BLET BY MOUTH THREE TIMES A DAY NEEDED FOR MUSCLE SPASMS 01/20/2019 02/18/2019 Inactive metoprolol tartrate 100 mg tablet RxNorm: 809319 TAKE O NE TABLET BY MOUTH TWICE A DAY 01/20/2019 02/18/2019 Inactive cyclobenzaprine 10 mg tablet RxNorm: 036614 TAKE ONE TA BLET BY MOUTH THREE TIMES A DAY NEEDED FOR MUSCLE SPASMS 12/19/2018 01/17/2019 Inactive lisinopril 20 mg tablet RxNorm: 672503 TAKE ONE TABLET BY MOUTH DAILY, REPLACES 10 MG DOSE 12/19/2018 01/17/2019 Inactive duloxetine 60 mg capsule,delayed release RxNorm: 229201 TAKE ONE CAPSULE BY MOUTH DAILY 12/19/2018 01/17/2019 Inactive Lipitor 10 mg tablet RxNorm: 621147 TAKE ONE TABLET BY MOUTH AT BEDTIME 12/19/2018 01/17/2019 Inactive cyclobenzaprine 10 mg tablet RxNorm: 869013 1 Tablet(s) PO TID as needed for muscle spasm 11/19/2018 12/18/2018 Inactive Singulair 10 mg tablet RxNorm: 829740 1 Tablet(s) PO QD 11/19/2018 Inactive lisinopril 20 mg tablet RxNorm: 819562 TAKE ONE TABLET BY MOUTH DAILY, REPLACES 10 MG DOSE 11/15/2018 12/18/2018 Inactive hydrocodone 10 mg-acetaminophen 325 mg tablet RxNorm: 594884 1-2 Tablet(s) PO QID as needed for pain MUST LAST 30 DAYS 11/13/2018 12/12/2018 Inactiv e (Response to an electronic controlled substance refill request - RxReferenceNumber: [id number]) nystatin 100,000 unit/gram topical cream RxNorm: 858130 APPLY TO AFFECTED AREA(S) TWO TIMES A DAY 10/23/2018 11/06/2018 Inactive lisinopril 20 mg tablet RxNorm: 684901 1 Tablet(s) PO QD replac es 10mg dose 10/18/2018 11/14/2018 Inactive hydrocodone 10 mg-acetaminophen 325 mg tablet RxNorm: 480390 1-2 Tablet(s) QID as needed for pain MUST LAST 30 DAYS 10/08/2018 11/06/2018 Inactive (Response to an electronic controlled substance refill request - RxReferenceNumber: [id number]) lisinopril 10 mg tablet RxNorm: 420885 1 Tablet(s) PO QD 10/03/2018 0 01/21/2019 Inactive Celebrex 200 mg capsule RxNorm: 290108 TAKE ONE CAPSULE BY MOUT H TWICE A DAY 09/30/2018 05/04/2019 Inactive cyclobenzaprine 10 mg tablet RxNorm: 197295 TAKE ONE TA BLET BY MOUTH THREE TIMES A DAY NEEDED FOR MUSCLE SPASMS 09/30/2018 11/18/2018 Inactive doxepin 25 mg capsule RxNorm: 3809096 TAKE ONE CAPSULE B Y MOUTH EVERY NIGHT AT BEDTIME NEEDED 09/05/2018 10/16/2018 Inactive omeprazole 40 mg capsule,delayed release RxNorm: 213466 TAKE ONE CAPSULE BY MOUTH DAILY 09/05/2018 01/21/2019 Inactive furosemide 40 mg tablet RxNorm: 664550 TAKE ONE TABLET BY MOUTH EVERY MORNING NEEDED FOR EDEMA . TAKE WITH POTASSIUM 09/05/2018 11/03/2018 Inactive phentermine 37.5 mg tablet RxNorm: 776196 1 Tablet(s) PO QAM 201701/21/2019 Inactive doxepin 25 mg capsule RxNorm: 6711682 1 Capsule(s) PO QH S as needed for sleep TAKE ONE CAPSULE BY MOUTH EVERY NIGHT AT BEDTIME NEEDED 08/27/2018 09/04/2018 Inactive Keflex 500 mg capsule RxNorm: 430406 1 Capsule(s) PO TID 08/09/2018 1 10/19/2017 Inactive Diflucan 100 mg tablet RxNorm: 733340 1 Tablet(s) PO QD 08/09/2018 Inactive Premarin 1.25 mg tablet RxNorm: 111753 2 Tablet(s) PO QD 08/09/2018 0 05/04/2019 Inactive Zofran ODT 4 mg disintegrating tablet RxNorm: 619706 1 Tablet(s) PO Q4H as needed for nausea 08/09/2018 01/21/2019 Inactive metoprolol tartrate 100 mg tablet RxNorm: 517505 TAKE O NE TABLET BY MOUTH TWICE A DAY 2018 10/04/2018 Inactive doxepin 25 mg capsule RxNorm: 1601618 TAKE ONE CAPSULE B Y MOUTH EVERY NIGHT AT BEDTIME NEEDED 2018 08/26/2018 Inactive cyclobenzaprine 10 mg tablet RxNorm: 199937 TAKE ONE TA BLET BY MOUTH THREE TIMES A DAY NEEDED FOR MUSCLE SPASMS 2018 09/29/2018 Inactive hydrocodone 10 mg-acetaminophen 325 mg tablet RxNorm: 797860 1-2 Tablet(s) QID as needed for pain MUST LAST 30 DAYS 07/29/2018 08/27/2018 Inactive (Response to an electronic controlled substance refill request - RxReferenceNumber: [id number]) nystatin 100,000 unit/gram topical powder RxNorm: 244081 Applic ation TOP BID 07/22/2018 08/04/2018 Inactive doxepin 25 mg capsule RxNorm: 4026945 1 Capsule(s) PO QHS as needed 07/22/2018 08/05/2018 Inactive triamterene 75 mg-hydrochlorothiazide 50 mg tablet RxNorm: 3 44600 TAKE ONE TABLET BY MOUTH DAILY 07/05/2018 10/02/2018 Inactive duloxetine 60 mg capsule,delayed release RxNorm: 710020 TAKE ONE CAPSULE BY MOUTH DAILY 07/05/2018 09/02/2018 Inactive Klor-Con 8 mEq tablet,extended release RxNorm: 800900 T FARRUKH ONE TABLET BY MOUTH TWICE A DAY 07/05/2018 10/02/2018 Inactive Lipitor 10 mg tablet RxNorm: 969441 TAKE ONE TABLET BY MOUTH AT BEDTIME 07/05/2018 09/02/2018 Inactive allopurinol 300 mg tablet RxNorm: 878453 TAKE ONE TABLET BY LOPEZ TH DAILY 07/05/2018 10/02/2018 Inactive clonidine HCl 0.1 mg tablet RxNorm: 523324 TAKE ONE TAB LET BY MOUTH FOUR TIMES A DAY 07/05/2018 10/02/2018 Inactive hydrocodone 10 mg-acetaminophen 325 mg tablet RxNorm: 523684 1-2 Tablet(s) QID as needed for pain MUST LAST 30 DAYS 06/28/2018 07/27/2018 Inactive (Response to an electronic controlled substance refill request - RxReferenceNumber: [id number]) MediHoney (calcium alginate-honey) 4" X 5" bandage RxNorm: 1 Application TOP QD 06/17/2018 06/26/2018 Inactive honey-hydrocolloid dressing 4" X 5" RxNorm: 1 Application TOP QD 06/17/2018 07/16/2018 Inactive furosemide 40 mg tablet RxNorm: 508253 TAKE ONE TABLET BY MOUTH EVERY MORNING NEEDED FOR EDEMA . TAKE WITH POTASSIUM 06/10/2018 07/09/2018 Inactive This is a refill request. hydrocodone 10 mg-acetaminophen 325 mg tablet RxNorm: 435062 1-2 Tablet(s) QID as needed for pain MUST LAST 30 DAYS 05/30/2018 06/27/2018 Inactive (Response to an electronic controlled substance refill request - RxReferenceNumber: [id number]) acyclovir 800 mg tablet RxNorm: 462212 1 Tablet(s) PO 5x day 201705/22/2018 Inactive Premarin 1.25 mg tablet RxNorm: 101237 1-2 Tablet(s) PO QD 05/15/20 18 07/13/2018 Inactive cyclobenzaprine 10 mg tablet RxNorm: 241374 1 Tablet(s) PO TID as needed for muscle spasm 05/09/2018 05/08/2018 Inactive Medrol (Dustin) 4 mg tablets in a dose pack RxNorm: 963408 Tablet(s) PO As Directed 05/02/2018 06/16/2018 Inactive hydrocodone 10 mg-acetaminophen 325 mg tablet RxNorm: 640134 1-2 Tablet(s) QID as needed for pain MUST LAST 30 DAYS 04/30/2018 05/29/2018 Inactive (Response to an electronic controlled substance refill request - RxReferenceNumber: [id number]) duloxetine 60 mg capsule,delayed release RxNorm: 453121 TAKE ONE CAPSULE BY MOUTH DAILY 04/16/2018 05/15/2018 Inactive Celebrex 200 mg capsule RxNorm: 844716 TAKE ONE CAPSULE BY MOUT H TWICE A DAY 04/16/2018 06/14/2018 Inactive Singulair 10 mg tablet RxNorm: 011249 TAKE ONE TABLET BY MOUTH JOSÉ Y 04/16/2018 11/19/2018 Inactive Lipitor 10 mg tablet RxNorm: 857245 TAKE ONE TABLET BY MOUTH AT BEDTIME 04/16/2018 05/15/2018 Inactive hydrocodone 10 mg-acetaminophen 325 mg tablet RxNorm: 073365 1-2 Tablet(s) QID as needed for pain MUST LAST 30 DAYS 03/29/2018 04/27/2018 Inactive (Response to an electronic controlled substance refill request - RxReferenceNumber: [id number]) cyclobenzaprine 10 mg tablet RxNorm: 316403 1 Tablet(s) PO TID as needed for muscle spasm 03/18/2018 05/09/2018 Inactive omeprazole 40 mg capsule,delayed release RxNorm: 161067 1 Capsu le(s) PO QD 02/26/2018 08/24/2018 Inactive hydrocodone 10 mg-acetaminophen 325 mg tablet RxNorm: 313924 1-2 Tablet(s) QID as needed for pain MUST LAST 30 DAYS 02/26/2018 03/27/2018 Inactive (Response to an electronic controlled substance refill request - RxReferenceNumber: [id number]) metoprolol tartrate 100 mg tablet RxNorm: 389670 1 Tablet(s) PO BID 02/18/2018 08/05/2018 Inactive Lyrica 75 mg capsule RxNorm: 088251 1 Capsule(s) PO QHS 01/30/2018 Inactive phentermine 37.5 mg tablet RxNorm: 983479 1 Tablet(s) PO QAM 201706/16/2018 Inactive hydrocodone 10 mg-acetaminophen 325 mg tablet RxNorm: 865624 1-2 Tablet(s) QID as needed for pain MUST LAST 30 DAYS 01/29/2018 02/25/2018 Inactive (Response to an electronic controlled substance refill request - RxReferenceNumber: [id number]) Klor-Con 8 mEq tablet,extended release RxNorm: 263111 1 Tablet( s) PO BID 01/14/2018 07/04/2018 Inactive allopurinol 300 mg tablet RxNorm: 864962 1 Tablet(s) PO QD 01/15/2007/04/2018 Inactive Lipitor 10 mg tablet RxNorm: 391530 1 Tablet(s) PO QHS 01/14/201812/2017 Inactive triamterene 75 mg-hydrochlorothiazide 50 mg tablet RxNorm: 3 40191 1 Tablet(s) PO QD 01/14/2018 07/04/2018 Inactive hydrocodone 10 mg-acetaminophen 325 mg tablet RxNorm: 202221 1-2 Tablet(s) QID as needed for pain MUST LAST 30 DAYS 12/27/2017 01/25/2018 Inactive (Response to an electronic controlled substance refill request - RxReferenceNumber: [id number]) Onglyza 5 mg tablet RxNorm: 080237 1 Tablet(s) PO QD 12/18/201701/29 Inactive metformin 500 mg tablet RxNorm: 686022 1 Tablet(s) PO BID 12/11/2017 12/10/2017 Inactive metformin 500 mg tablet RxNorm: 365701 1 Tablet(s) PO BID 12/11/2017 12/17/2017 Inactive furosemide 40 mg tablet RxNorm: 075035 1 Tablet(s) PO Q AM prn edema--take with potassium 12/11/2017 06/08/2018 Inactive cyclobenzaprine 10 mg tablet RxNorm: 586064 1 Tablet(s) PO TID as needed for muscle spasm 12/11/2017 03/18/2018 Inactive hydrocodone 10 mg-acetaminophen 325 mg tablet RxNorm: 071548 1-2 Tablet(s) QID as needed for pain MUST LAST 30 DAYS 10/23/2017 11/21/2017 Inactive (Response to an electronic controlled substance refill request - RxReferenceNumber: [id number]) Lipitor 10 mg tablet RxNorm: 505924 1 Tablet(s) PO QHS 10/16/201703/2018 Inactive cyclobenzaprine 10 mg tablet RxNorm: 144667 1 Tablet(s) PO TID as needed for muscle spasm 10/09/2017 12/10/2017 Inactive hydroxyzine HCl 25 mg tablet RxNorm: 938566 1 Tablet(s) PO BID as needed for anxiety 09/20/2017 01/29/2018 Inactive Effexor XR 75 mg capsule,extended release RxNorm: 704790 1 Caps ule(s) PO QD 09/20/2017 01/29/2018 Inactive metoprolol tartrate 100 mg tablet RxNorm: 102502 1 Tablet(s) PO BID 08/20/2017 02/18/2018 Inactive baclofen 20 mg tablet RxNorm: 692320 1 Tablet(s) PO TID as needed for muscle spasm 08/20/2017 01/21/2019 Inactive clonidine HCl 0.1 mg tablet RxNorm: 327719 1 Tablet(s) PO QID 08/2005/16/2018 Inactive Seroquel 25 mg tablet RxNorm: 559288 1 Tablet(s) PO QHS 08/17/2017 Inactive Seroquel 25 mg tablet RxNorm: 423487 1 Tablet(s) PO QHS 08/17/2017 Inactive Diflucan 100 mg tablet RxNorm: 926299 TAKE ONE TABLET BY MOUTH JOSÉ Y 07/25/2017 08/07/2017 Inactive hydrocodone 10 mg-acetaminophen 325 mg tablet RxNorm: 199096 1-2 Tablet(s) QID as needed for pain MUST LAST 30 DAYS 07/19/2017 08/17/2017 Inactive (Response to an electronic controlled substance refill request - RxReferenceNumber: [id number]) clindamycin 300 mg capsule RxNorm: 813945 1 Capsule(s) PO TID 07/1907/28/2017 Inactive clotrimazole-betamethasone 1 %-0.05 % topical cream RxNorm: 168493 Application TOP BID to elbow rash 07/19/2017 06/16/2018 Inactive Singulair 10 mg tablet RxNorm: 953732 Tablet(s) TAKE ONE TABLET BY MOUTH DAILY 07/18/2017 04/13/2018 Inactive triamterene 75 mg-hydrochlorothiazide 50 mg tablet RxNorm: 3 08624 1 Tablet(s) PO QD 07/18/2017 01/14/2018 Inactive Celebrex 200 mg capsule RxNorm: 976944 Capsule(s) TAKE ONE CAPSULE BY MOUTH TWICE A DAY 07/18/2017 10/15/2017 Inactive hydrocodone 10 mg-acetaminophen 325 mg tablet RxNorm: 745238 1-2 Tablet(s) QID as needed for pain MUST LAST 30 DAYS 06/19/2017 07/18/2017 Inactive (Response to an electronic controlled substance refill request - RxReferenceNumber: [id number]) hydrocodone 10 mg-acetaminophen 325 mg tablet RxNorm: 787470 1-2 Tablet(s) QID as needed for pain MUST LAST 30 DAYS 06/19/2017 06/18/2017 Inactive (Response to an electronic controlled substance refill request - RxReferenceNumber: [id number]) baclofen 20 mg tablet RxNorm: 070152 1 Tablet(s) PO TID as needed for muscle spasm 06/18/2017 08/20/2017 Inactive Medrol (Dustin) 4 mg tablets in a dose pack RxNorm: 027275 Tablet(s) PO As Directed 06/05/2017 07/18/2017 Inactive omeprazole 40 mg capsule,delayed release RxNorm: 859420 1 Capsu le(s) PO QD 04/20/2017 10/16/2017 Inactive Premarin 1.25 mg tablet RxNorm: 222898 1-2 Tablet(s) PO QD 04/11/20 17 05/15/2018 Inactive duloxetine 60 mg capsule,delayed release RxNorm: 646659 1 Capsu le(s) PO QD 04/11/2017 09/19/2017 Inactive furosemide 40 mg tablet RxNorm: 365089 1 Tablet(s) PO Q AM prn edema--take with potassium 04/11/2017 12/11/2017 Inactive Klor-Con 8 mEq tablet,extended release RxNorm: 777866 1 Tablet( s) PO BID 04/11/2017 01/14/2018 Inactive Lipitor 10 mg tablet RxNorm: 314471 1 Tablet(s) PO QHS 04/11/201702/2018 Inactive amlodipine 5 mg-benazepril 20 mg capsule RxNorm: 166303 1 Capsu le(s) PO QD 04/11/2017 01/29/2018 Inactive allopurinol 300 mg tablet RxNorm: 065691 1 Tablet(s) PO QD 04/11/20 17 01/14/2018 Inactive clonidine HCl 0.1 mg tablet RxNorm: 903724 1 Tablet(s) PO QID 04/0508/19/2017 Inactive baclofen 20 mg tablet RxNorm: 920516 1 Tablet(s) PO TID as needed for muscle spasm 04/02/2017 06/18/2017 Inactive Premarin 1.25 mg tablet RxNorm: 968768 1-2 Tablet(s) PO QD 03/20/20 17 04/10/2017 Inactive hydrocodone 10 mg-acetaminophen 325 mg tablet RxNorm: 719029 1-2 Tablet(s) QID as needed for pain MUST LAST 30 DAYS 03/14/2017 01/21/2019 Inactive (Response to an electronic controlled substance refill request - RxReferenceNumber: [id number]) metoprolol tartrate 100 mg tablet RxNorm: 568779 1 Tablet(s) PO BID 02/12/2017 08/20/2017 Inactive hydrocodone 10 mg-acetaminophen 325 mg tablet RxNorm: 203461 1-2 Tablet(s) QID as needed for pain MUST LAST 30 DAYS 02/08/2017 03/09/2017 Inactive (Response to an electronic controlled substance refill request - RxReferenceNumber: [id number]) metoprolol tartrate 100 mg tablet RxNorm: 606348 TAKE O NE TABLET BY MOUTH TWICE A DAY 01/11/2017 02/12/2017 Inactive metoprolol tartrate 100 mg tablet RxNorm: 303790 1 Tablet(s) PO BID 12/18/2016 12/17/2016 Inactive metoprolol tartrate 100 mg tablet RxNorm: 865977 1 Tablet(s) PO BID 12/18/2016 01/10/2017 Inactive furosemide 40 mg tablet RxNorm: 004062 1 Tablet(s) PO Q AM prn edema--take with potassium 12/13/2016 02/10/2017 Inactive amitriptyline 100 mg tablet RxNorm: 385627 1 Tablet(s) PO QHS 11/2812/12/2016 Inactive baclofen 20 mg tablet RxNorm: 568255 1 Tablet(s) PO TID as needed for muscle spasm 11/14/2016 04/01/2017 Inactive triamterene 75 mg-hydrochlorothiazide 50 mg tablet RxNorm: 3 04572 1 Tablet(s) PO QD 11/14/2016 11/13/2016 Inactive metolazone 2.5 mg tablet RxNorm: 042635 TAKE ONE TABLET BY MOUTH DAILY NEEDED FOR EDEMA 11/14/2016 12/12/2016 Inactive triamterene 75 mg-hydrochlorothiazide 50 mg tablet RxNorm: 3 10696 1 Tablet(s) PO QD 11/14/2016 07/18/2017 Inactive amitriptyline 50 mg tablet RxNorm: 387483 TAKE ONE TABL ET BY MOUTH AT BEDTIME NEEDED FOR SLEEP 11/14/2016 11/27/2016 Inactive Cymbalta 60 mg capsule,delayed release RxNorm: 858246 1 Capsule (s) PO QHS 11/14/2016 12/12/2016 Inactive clonidine HCl 0.1 mg tablet RxNorm: 900888 1 Tablet(s) PO QID 11/1304/04/2017 Inactive amitriptyline 50 mg tablet RxNorm: 075780 1 Tablet(s) P O QHS as needed for sleep 11/01/2016 11/27/2016 Inactive duloxetine 60 mg capsule,delayed release RxNorm: 433520 TAKE ONE CAPSULE BY MOUTH DAILY 10/20/2016 01/17/2017 Inactive allopurinol 300 mg tablet RxNorm: 122463 TAKE ONE TABLET BY LOPEZ TH DAILY 10/20/2016 01/16/2017 Inactive Lyrica 75 mg capsule RxNorm: 294293 TAKE ONE CAPSULE BY MOUTH EVERY NIGHT AT BEDTIME 10/20/2016 12/10/2016 Inactive Klor-Con 8 mEq tablet,extended release RxNorm: 420361 T FARRUKH ONE TABLET BY MOUTH TWICE A DAY 10/20/2016 01/17/2017 Inactive Celebrex 200 mg capsule RxNorm: 864894 TAKE ONE CAPSULE BY MOUT H TWICE A DAY 10/20/2016 07/18/2017 Inactive Bystolic 10 mg tablet RxNorm: 593206 TAKE ONE TABLET BY MOUTH EVERY NIGHT AT BEDTIME 10/20/2016 12/17/2016 Inactive amlodipine 5 mg-benazepril 20 mg capsule RxNorm: 118299 TAKE ONE CAPSULE BY MOUTH EVERY NIGHT AT BEDTIME -- TO REPLACE AMLODOPINE 10/20/20162016 Inactive Lipitor 10 mg tablet RxNorm: 964025 TAKE ONE TABLET BY MOUTH EVERY NIGHT AT BEDTIME 10/20/2016 01/17/2017 Inactive alprazolam 0.5 mg tablet RxNorm: 488065 3 Tablet(s) PO QHS as needed for sleep/anxiety 09/20/2016 10/31/2016 Inactive Tamiflu 75 mg capsule RxNorm: 514412 1 Capsule(s) PO QD 09/19/2016 Inactive Lyrica 75 mg capsule RxNorm: 250380 1 Capsule(s) PO QHS 09/19/2016 Inactive prednisone 20 mg tablet RxNorm: 939078 1 Tablet(s) PO QD 08/10/2016 1 10/17/2015 Inactive doxycycline hyclate 100 mg capsule RxNorm: 5495275 1 Capsule(s) PO BID 08/10/2016 08/19/2016 Inactive Medrol (Dustin) 4 mg tablets in a dose pack RxNorm: 810312 Tablet(s) PO As Directed 07/31/2016 08/22/2016 Inactive Singulair 10 mg tablet RxNorm: 148417 TAKE ONE TABLET BY MOUTH JOSÉ Y 07/27/2016 07/18/2017 Inactive hydrocodone 10 mg-acetaminophen 325 mg tablet RxNorm: 549363 1-2 Tablet(s) QID as needed for pain MUST LAST 30 DAYS 07/26/2016 08/24/2016 Inactive (Response to an electronic controlled substance refill request - RxReferenceNumber: [id number]) alprazolam 0.5 mg tablet RxNorm: 686268 3 Tablet(s) PO QHS as needed for anxiety or sleep 07/26/2016 09/20/2016 Inactive clindamycin 300 mg capsule RxNorm: 319085 1 Capsule(s) PO TID 07/2007/29/2016 Inactive Diflucan 100 mg tablet RxNorm: 865788 1 Tablet(s) PO QD 07/20/2016 Inactive Levaquin 500 mg tablet RxNorm: 950805 1 Tablet(s) PO QD 07/17/2016 Inactive Levaquin 500 mg tablet RxNorm: 203500 1 Tablet(s) PO QD 07/10/2016 Inactive Levaquin 500 mg tablet RxNorm: 040225 1 Tablet(s) PO QD 07/10/2016 Inactive mupirocin 2 % topical ointment RxNorm: 907057 TOP Apply topically to affected areas twice daily 07/06/2016 09/18/2016 Inactive Singulair 10 mg tablet RxNorm: 709464 TAKE ONE TABLET BY MOUTH JOSÉ Y 06/21/2016 01/21/2019 Inactive alprazolam 0.5 mg tablet RxNorm: 471485 TAKE THREE TABL ETS BY MOUTH AT BEDTIME NEEDED FOR SLEEP OR STRESS 05/22/2016 06/20/2016 Inactive triamterene 75 mg-hydrochlorothiazide 50 mg tablet RxNorm: 3 55831 1 Tablet(s) PO QD 04/26/2016 01/12/2020 Inactive Premarin 1.25 mg tablet RxNorm: 778784 1-2 Tablet(s) PO QD 04/26/20 16 03/20/2017 Inactive Klor-Con 8 mEq tablet,extended release RxNorm: 680755 1 Tablet( s) PO BID 04/26/2016 10/19/2016 Inactive Celebrex 200 mg capsule RxNorm: 010291 1 Capsule(s) PO BID TAKE ONE CAPSULE BY MOUTH EVERY DAY 04/26/2016 10/19/2016 Inactive Lipitor 10 mg tablet RxNorm: 603150 1 Tablet(s) PO QHS 04/26/201605/2017 Inactive allopurinol 300 mg tablet RxNorm: 374317 1 Tablet(s) PO QD TAKE ONE TABLET BY MOUTH EVERY DAY 04/26/2016 10/19/2016 Inactive amlodipine 5 mg-benazepril 20 mg capsule RxNorm: 828291 1 Capsule(s) PO QHS replaces amlodopine 04/26/2016 10/19/2016 Inactive duloxetine 60 mg capsule,delayed release RxNorm: 571713 1 Capsu le(s) PO QD 04/26/2016 10/19/2016 Inactive Bystolic 10 mg tablet RxNorm: 237755 1 Tablet(s) PO QHS 04/26/2016 Inactive Singulair 10 mg tablet RxNorm: 071386 1 Tablet(s) PO QD TAKE ONE TABLET BY MOUTH DAILY 04/26/2016 06/20/2016 Inactive clonidine HCl 0.1 mg tablet RxNorm: 574485 1 Tablet(s) PO QID 04/2610/22/2016 Inactive hydrocodone 10 mg-acetaminophen 325 mg tablet RxNorm: 894637 1-2 Tablet(s) QID as needed for pain TAKE ONE TO TWO TABLETS BY MOUTH FOUR TIMES A DAY . MUST LAST 30 DAYS 03/31/2016 04/29/2016 Inactive (Response to an electronic controlled substance refill request - RxReferenceNumber: [id number]) Klor-Con 8 mEq tablet,extended release RxNorm: 232247 T FARRUKH ONE TABLET BY MOUTH TWICE A DAY 03/24/2016 09/29/2019 Inactive prednisone 20 mg tablet RxNorm: 882136 1 Tablet(s) PO QD 03/09/2016 0 03/08/2016 Inactive prednisone 20 mg tablet RxNorm: 778675 1 Tablet(s) PO QD 03/09/2016 0 03/13/2016 Inactive alprazolam 0.5 mg tablet RxNorm: 534792 3 Tablet(s) PO QHS as needed for sleep/stress 03/02/2016 01/21/2019 Inactive mupirocin 2 % topical ointment RxNorm: 561379 TOP twice daily to affected areas of face and neck 02/21/2016 04/25/2016 Inactive clonidine HCl 0.1 mg tablet RxNorm: 351254 TAKE ONE TAB LET BY MOUTH FOUR TIMES A DAY 02/15/2016 09/29/2019 Inactive clonidine HCl 0.1 mg tablet RxNorm: 418123 1 Tablet(s) PO QID 02/1404/25/2016 Inactive Premarin 1.25 mg tablet RxNorm: 886523 1-2 Tablet(s) PO QD 02/15/20 16 03/15/2016 Inactive Klor-Con 8 mEq tablet,extended release RxNorm: 373219 T FARRUKH ONE TABLET BY MOUTH TWICE A DAY 02/15/2016 03/15/2016 Inactive potassium chloride ER 20 mEq tablet,extended release(part/cr yst) RxNorm: 173154 2 Tablet(s) PO BID 02/15/2016 03/15/2016 Inactive Macrobid 100 mg capsule RxNorm: 671732 1 Capsule(s) PO BID 0501/30/2016 Inactive prednisone 20 mg tablet RxNorm: 275712 Take 3tabs PO QD x 2 days, then 2 tabs PO QD x 2 days, then 1 tab PO QD x 2 days, then 1/2 tab PO QDy x 2 days 12/23/2015 04/25/2016 Inactive Klor-Con 8 mEq tablet,extended release RxNorm: 781171 T FARRUKH ONE TABLET BY MOUTH TWICE A DAY 12/20/2015 02/14/2016 Inactive alprazolam 1 mg tablet RxNorm: 426540 1 1/2 Tablet(s) PO QHS 201501/23/2016 Inactive nystatin 100,000 unit/gram topical cream RxNorm: 976188 APPLY TO AFFECTED AREA(S) TWO TIMES A DAY 11/30/2015 12/14/2015 Inactive Singulair 10 mg tablet RxNorm: 931294 TAKE ONE TABLET BY MOUTH JOSÉ Y 11/18/2015 04/25/2016 Inactive allopurinol 300 mg tablet RxNorm: 448583 1 Tablet(s) PO QD TAKE ONE TABLET BY MOUTH EVERY DAY 10/26/2015 04/22/2016 Inactive Singulair 10 mg tablet RxNorm: 220937 TAKE ONE TABLET BY MOUTH JOSÉ Y 10/26/2015 11/17/2015 Inactive duloxetine 60 mg capsule,delayed release RxNorm: 387844 1 Capsu le(s) PO QD 10/26/2015 04/22/2016 Inactive triamterene 75 mg-hydrochlorothiazide 50 mg tablet RxNorm: 3 82536 1 Tablet(s) PO QD 10/26/2015 11/14/2016 Inactive potassium chloride ER 20 mEq tablet,extended release(part/cr yst) RxNorm: 745666 2 Tablet(s) PO BID 10/26/2015 02/14/2016 Inactive Lipitor 10 mg tablet RxNorm: 415170 1 Tablet(s) PO QHS 10/26/2015 Inactive amlodipine 5 mg-benazepril 20 mg capsule RxNorm: 975759 1 Capsule(s) PO QHS replaces amlodopine 10/26/2015 04/22/2016 Inactive Bystolic 10 mg tablet RxNorm: 475381 1 Tablet(s) PO QHS 10/26/2015 Inactive amlodipine 5 mg-benazepril 20 mg capsule RxNorm: 420248 1 Capsule(s) PO QHS replaces amlodopine 10/06/2015 10/25/2015 Inactive amlodipine 5 mg tablet RxNorm: 412860 1 Tablet(s) PO QHS 09/30/2015 0 04/25/2016 Inactive metolazone 2.5 mg tablet RxNorm: 162374 TAKE ONE TABLET BY MOUTH DAILY NEEDED FOR EDEMA 09/30/2015 01/21/2019 Inactive duloxetine 60 mg capsule,delayed release RxNorm: 566014 1 Capsu le(s) PO QD 09/30/2015 10/25/2015 Inactive cephalexin 500 mg capsule RxNorm: 343914 1 Capsule(s) PO BID 201509/23/2015 Inactive mupirocin 2 % topical ointment RxNorm: 593289 TOP twice daily to affected areas of face and neck 09/14/2015 02/20/2016 Inactive baclofen 20 mg tablet RxNorm: 157517 1 Tablet(s) PO TID as needed for muscle spasm 09/01/2015 11/14/2016 Inactive clonidine HCl 0.1 mg tablet RxNorm: 105910 1 Tablet(s) PO QID 09/0102/14/2016 Inactive alprazolam 1 mg tablet RxNorm: 807368 1 1/2 Tablet(s) PO QHS 201409/09/2015 Inactive baclofen 20 mg tablet RxNorm: 138471 1 Tablet(s) PO TID as needed for muscle spasm 07/23/2015 09/01/2015 Inactive omeprazole 40 mg capsule,delayed release RxNorm: 069283 1 Capsu le(s) PO QD 07/23/2015 04/25/2016 Inactive alprazolam 1 mg tablet RxNorm: 627482 1 1/2 Tablet(s) PO QHS 201408/10/2015 Inactive Bystolic 10 mg tablet RxNorm: 776579 1 Tablet(s) PO BID 06/24/2015 Inactive allopurinol 300 mg tablet RxNorm: 214456 1 Tablet(s) PO QD TAKE ONE TABLET BY MOUTH EVERY DAY 06/23/2015 10/20/2015 Inactive alprazolam 1 mg tablet RxNorm: 795432 1 1/2 Tablet(s) PO QHS 201407/06/2015 Inactive clonidine HCl 0.1 mg tablet RxNorm: 365137 1 Tablet(s) PO QID 06/0209/01/2015 Inactive clonidine HCl 0.1 mg tablet RxNorm: 432214 1 Tablet(s) PO QID 06/0206/01/2015 Inactive Cymbalta 60 mg capsule,delayed release RxNorm: 663491 1 Capsule (s) PO QHS 06/02/2015 08/30/2015 Inactive Cymbalta 60 mg capsule,delayed release RxNorm: 274841 1 Capsule (s) PO QHS 06/02/2015 06/01/2015 Inactive clonidine HCl 0.1 mg tablet RxNorm: 464563 1 Tablet(s) PO TID 05/3106/01/2015 Inactive replaces 0.2mg dose metolazone 2.5 mg tablet RxNorm: 176399 TAKE ONE TABLET BY MOUTH DAILY NEEDED FOR EDEMA 05/21/2015 06/19/2015 Inactive Singulair 10 mg tablet RxNorm: 948683 TAKE ONE TABLET BY MOUTH JOSÉ Y 05/21/2015 10/17/2015 Inactive Cymbalta 30 mg capsule,delayed release RxNorm: 821751 1 Capsule (s) PO QHS 05/20/2015 11/14/2016 Inactive betamethasone valerate 0.1 % topical cream RxNorm: 211735 Appli cation TOP BID 05/10/2015 04/25/2016 Inactive Bactroban 2 % topical ointment RxNorm: 207986 Application TOP BID 0 05/10/2015 06/20/2015 Inactive baclofen 20 mg tablet RxNorm: 781236 1 Tablet(s) PO TID as needed 0 04/26/2015 07/23/2015 Inactive Lipitor 10 mg tablet RxNorm: 532371 1 Tablet(s) PO QHS 04/26/201508/2016 Inactive clonidine HCl 0.1 mg tablet RxNorm: 434328 1 Tablet(s) PO TID 04/2605/30/2015 Inactive replaces 0.2mg dose Klor-Con 8 mEq tablet,extended release RxNorm: 245278 1 Tablet( s) PO BID 04/26/2015 04/25/2016 Inactive metolazone 2.5 mg tablet RxNorm: 061298 1 Tablet(s) PO QD as ne eded for edema 04/26/2015 04/25/2015 Inactive triamterene 75 mg-hydrochlorothiazide 50 mg tablet RxNorm: 3 75667 1 Tablet(s) PO QD 04/26/2015 10/22/2015 Inactive Premarin 1.25 mg tablet RxNorm: 478197 1-2 Tablet(s) PO QD 04/26/20 15 10/22/2015 Inactive Bystolic 10 mg tablet RxNorm: 344869 1 Tablet(s) PO QAM TAKE ONE TABLET BY MOUTH EVERY MORNING 04/23/2015 06/23/2015 Inactive clonidine HCl 0.1 mg tablet RxNorm: 774516 1 Tablet(s) PO TID 03/2304/25/2015 Inactive replaces 0.2mg dose nystatin 100,000 unit/gram topical cream RxNorm: 047279 Applica tion TOP BID 03/23/2015 06/20/2015 Inactive baclofen 20 mg tablet RxNorm: 784433 1 Tablet(s) PO TID as needed 0 03/23/2015 04/25/2015 Inactive Premarin 1.25 mg tablet RxNorm: 746250 1-2 Tablet(s) PO QD 03/23/20 15 04/25/2015 Inactive Klor-Con 8 mEq tablet,extended release RxNorm: 391058 1 Tablet( s) PO BID 03/23/2015 04/25/2015 Inactive cefdinir 300 mg capsule RxNorm: 067866 2 Capsule(s) PO QD 03/16/2015 03/25/2015 Inactive baclofen 20 mg tablet RxNorm: 489621 1 Tablet(s) PO TID as needed 0 03/02/2015 03/22/2015 Inactive allopurinol 300 mg tablet RxNorm: 178111 1 Tablet(s) PO QD TAKE ONE TABLET BY MOUTH EVERY DAY 02/22/2015 05/22/2015 Inactive Klor-Con M20 mEq tablet,extended release RxNorm: 776888 2 Tablet(s) PO BID to use with lasix 02/22/2015 06/20/2015 Inactive clonidine HCl 0.1 mg tablet RxNorm: 644671 1 Tablet(s) PO TID 02/1903/22/2015 Inactive replaces 0.2mg dose Lipitor 10 mg tablet RxNorm: 863662 1 Tablet(s) PO QHS 01/20/201506/2015 Inactive Lipitor 10 mg tablet RxNorm: 682475 1 Tablet(s) PO QHS 01/20/2015 Inactive Singulair 10 mg tablet RxNorm: 674888 1 Tablet(s) PO QD TAKE ONE TABLET BY MOUTH EVERY DAY 11/20/2014 05/18/2015 Inactive Lipitor 10 mg tablet RxNorm: 624737 1 Tablet(s) PO QHS 11/20/201408/2015 Inactive allopurinol 300 mg tablet RxNorm: 636833 1 Tablet(s) PO QD TAKE ONE TABLET BY MOUTH EVERY DAY 11/20/2014 02/16/2015 Inactive Bystolic 10 mg tablet RxNorm: 258396 1 Tablet(s) PO QAM TAKE ONE TABLET BY MOUTH EVERY MORNING 11/20/2014 04/22/2015 Inactive Klor-Con 8 mEq tablet,extended release RxNorm: 494620 1 Tablet( s) PO BID 11/20/2014 02/17/2015 Inactive baclofen 20 mg tablet RxNorm: 154909 1 Tablet(s) PO TID as needed 0 11/20/2014 01/21/2019 Inactive baclofen 20 mg tablet RxNorm: 802453 1 Tablet(s) PO TID as needed 0 10/27/2014 11/19/2014 Inactive baclofen 20 mg tablet RxNorm: 499135 1 Tablet(s) PO TID as needed 0 10/26/2014 03/01/2015 Inactive allopurinol 300 mg tablet RxNorm: 036090 1 Tablet(s) PO QD TAKE ONE TABLET BY MOUTH EVERY DAY 10/26/2014 11/20/2014 Inactive Bystolic 10 mg tablet RxNorm: 539141 1 Tablet(s) PO QAM TAKE ONE TABLET BY MOUTH EVERY MORNING 10/26/2014 11/20/2014 Inactive clonidine HCl 0.1 mg tablet RxNorm: 886526 1 Tablet(s) PO TID 09/2805/27/2019 Inactive replaces 0.2mg dose clonidine HCl 0.1 mg tablet RxNorm: 442623 1 Tablet(s) PO TID 09/2802/18/2015 Inactive replaces 0.2mg dose baclofen 20 mg tablet RxNorm: 199357 1 Tablet(s) PO TID as needed 1 11/01/2013 08/30/2014 Inactive Lipitor 10 mg tablet RxNorm: 930781 1 Tablet(s) PO QHS 08/31/2014 Inactive baclofen 20 mg tablet RxNorm: 406833 1 Tablet(s) PO TID as needed 1 11/01/2013 10/26/2014 Inactive triamterene 75 mg-hydrochlorothiazide 50 mg tablet RxNorm: 3 18596 1 Tablet(s) PO QD 08/31/2014 02/26/2015 Inactive Klor-Con 8 mEq tablet,extended release RxNorm: 181288 1 Tablet( s) PO BID 08/31/2014 11/20/2014 Inactive baclofen 20 mg tablet RxNorm: 397172 1 Tablet(s) PO TID as needed 1 09/30/2013 10/25/2014 Inactive baclofen 20 mg tablet RxNorm: 753177 1 Tablet(s) PO TID as needed 1 09/30/2013 08/31/2014 Inactive omeprazole 40 mg capsule,delayed release RxNorm: 104525 1 Capsu le(s) PO QD 07/21/2014 07/23/2015 Inactive Flonase 50 mcg/actuation nasal spray,suspension RxNorm: 8963 23 1 [place] NASAL BID 07/15/2014 04/09/2017 Inactive hydrocodone 10 mg-acetaminophen 325 mg tablet RxNorm: 331553 1-2 Tablet(s) QID as needed for pain TAKE ONE TO TWO TABLETS BY MOUTH FOUR TIMES A DAY . MUST LAST 30 DAYS 06/30/2014 07/27/2014 Inactive (Response to an electronic controlled substance refill request - RxReferenceNumber: [id number]) baclofen 20 mg tablet RxNorm: 196834 1 Tablet(s) PO TID as needed 1 07/31/2014 Inactive Singulair 10 mg tablet RxNorm: 498540 1 Tablet(s) PO QD TAKE ONE TABLET BY MOUTH EVERY DAY 05/25/2014 11/20/2014 Inactive Bystolic 10 mg tablet RxNorm: 293878 TAKE ONE TABLET BY MOUTH E VERY MORNING 05/25/2014 09/21/2014 Inactive allopurinol 300 mg tablet RxNorm: 767708 1 Tablet(s) PO QD TAKE ONE TABLET BY MOUTH EVERY DAY 05/25/2014 10/21/2014 Inactive baclofen 20 mg tablet RxNorm: 382992 1 Tablet(s) PO TID as needed 0 05/25/2014 06/29/2014 Inactive allopurinol 300 mg tablet RxNorm: 762297 TAKE ONE TABLET BY LOPEZ TH EVERY DAY 05/25/2014 09/21/2014 Inactive Singulair 10 mg tablet RxNorm: 446842 1 Tablet(s) PO QD TAKE ONE TABLET BY MOUTH EVERY DAY 05/25/2014 05/24/2014 Inactive Bystolic 10 mg tablet RxNorm: 383427 1 Tablet(s) PO QAM TAKE ONE TABLET BY MOUTH EVERY MORNING 05/25/2014 10/21/2014 Inactive metolazone 2.5 mg tablet RxNorm: 980914 1 Tablet(s) PO QD as ne eded for edema 05/18/2014 04/25/2015 Inactive Lasix 40 mg tablet RxNorm: 851085 1 Tablet(s) PO QAM s hould take potassium supplementation with this medication 05/14/2014 05/17/2014 Inactive hydrocodone 10 mg-acetaminophen 325 mg tablet RxNorm: 585309 1-2 Tablet(s) QID as needed for pain TAKE ONE TO TWO TABLETS BY MOUTH FOUR TIMES A DAY . MUST LAST 30 DAYS 05/07/2014 06/05/2014 Inactive (Response to an electronic controlled substance refill request - RxReferenceNumber: [id number]) alprazolam 0.5 mg tablet RxNorm: 383260 TAKE ONE TABLET BY MOUTH TWICE A DAY , MUST LAST 30 DAYS 05/07/2014 05/22/2016 Inactive (Response to a n electronic controlled substance refill request - RxReferenceNumber: [id number]) diclofenac sodium 75 mg tablet,delayed release RxNorm: 89875 6 1 Tablet(s) PO BID for pain 04/24/2014 07/20/2014 Inactive Celebrex 200 mg capsule RxNorm: 825372 TAKE ONE CAPSULE BY MOUT H EVERY DAY 04/24/2014 07/20/2014 Inactive alprazolam 0.5 mg tablet RxNorm: 319792 TAKE ONE TABLET BY MOUTH TWICE A DAY , MUST LAST 30 DAYS 03/24/2014 04/22/2014 Inactive (Response to a n electronic controlled substance refill request - RxReferenceNumber: [id number]) diclofenac sodium 75 mg tablet,delayed release RxNorm: 69999 6 1 Tablet(s) PO BID for pain 03/24/2014 04/24/2014 Inactive clonidine HCl 0.1 mg tablet RxNorm: 028813 1 Tablet(s) PO TID 03/2409/28/2014 Inactive replaces 0.2mg dose Klor-Con 8 mEq tablet,extended release RxNorm: 468193 1 Tablet( s) PO BID 02/26/2014 08/31/2014 Inactive diclofenac sodium 75 mg tablet,delayed release RxNorm: 97989 6 1 Tablet(s) PO BID for pain 02/25/2014 03/24/2014 Inactive hydrocodone 10 mg-acetaminophen 325 mg tablet RxNorm: 354019 1-2 Tablet(s) QID as needed for pain TAKE ONE TO TWO TABLETS BY MOUTH FOUR TIMES A DAY . MUST LAST 30 DAYS 02/25/2014 03/26/2014 Inactive (Response to an electronic controlled substance refill request - RxReferenceNumber: [id number]) alprazolam 0.5 mg tablet RxNorm: 397417 Tablet(s) PO BI D as needed for anxiety TAKE ONE TABLET BY MOUTH TWICE A DAY , MUST LAST 30 DAYS 02/25/2014 Inactive (Response to an electronic controlled [place] bstance refill request - RxReferenceNumber: [id number]) [AttnRPh: Saving apply/adjudicate RxGRP:SG20 RxBIN:[id number] RxPCN: ID#:[id number]] alprazolam 0.5 mg tablet RxNorm: 577292 Tablet(s) TAKE ONE TABLET BY MOUTH TWICE A DAY , MUST LAST 30 DAYS 01/27/2014 02/24/2014 Inactive (Respo nse to an electronic controlled substance refill request - RxReferenceNumber: [id number]) [AttnRPh: Saving apply/adjudicate RxGRP:SG20 RxBIN:[id number] RxPCN:HT ID#:[id number]] hydrocodone 10 mg-acetaminophen 325 mg tablet RxNorm: 670838 1-2 Tablet(s) QID as needed for pain TAKE ONE TO TWO TABLETS BY MOUTH FOUR TIMES A DAY . MUST LAST 30 DAYS 01/27/2014 02/24/2014 Inactive (Response to an electronic controlled substance refill request - RxReferenceNumber: [id number]) alprazolam 0.5 mg tablet RxNorm: 974376 TAKE ONE TABLET BY MOUTH TWICE A DAY , MUST LAST 30 DAYS 01/27/2014 01/26/2014 Inactive (Response to a n electronic controlled substance refill request - RxReferenceNumber: [id number]) Premarin 1.25 mg tablet RxNorm: 567670 1-2 Tablet(s) PO QD 01/28/20 14 07/25/2014 Inactive alprazolam 0.5 mg tablet RxNorm: 548389 TAKE ONE TABLET BY MOUTH TWICE A DAY , MUST LAST 30 DAYS 01/27/2014 01/27/2014 Inactive (Response to a n electronic controlled substance refill request - RxReferenceNumber: [id number]) hydrocodone 10 mg-acetaminophen 325 mg tablet RxNorm: 098951 TAKE ONE TO TWO TABLETS BY MOUTH FOUR TIMES A DAY . MUST LAST 30 DAYS 01/27/20142013 Inactive (Response to an electronic controlled [place] bstance refill request - RxReferenceNumber: [id number]) Celebrex 200 mg capsule RxNorm: 079403 1 Capsule(s) PO QD TAKE ONE CAPSULE BY MOUTH EVERY DAY 12/29/2013 04/27/2014 Inactive hydrocodone 10 mg-acetaminophen 325 mg tablet RxNorm: 118178 1-2 Tablet(s) PO QID as needed for severe pain 12/29/2013 01/27/2014 Inactive allopurinol 300 mg tablet RxNorm: 629061 1 Tablet(s) PO QD TAKE ONE TABLET BY MOUTH EVERY DAY 12/29/2013 05/24/2014 Inactive alprazolam 0.5 mg tablet RxNorm: 760781 TAKE ONE TABLET BY MOUTH TWICE A DAY , MUST LAST 30 DAYS 12/29/2013 01/27/2014 Inactive (Response to a n electronic controlled substance refill request - RxReferenceNumber: [id number]) Celebrex 200 mg capsule RxNorm: 415765 1 Capsule(s) PO QD TAKE ONE CAPSULE BY MOUTH EVERY DAY 12/29/2013 12/29/2013 Inactive Bystolic 10 mg tablet RxNorm: 445436 1 Tablet(s) PO QAM TAKE ONE TABLET BY MOUTH EVERY MORNING 12/29/2013 05/24/2014 Inactive Bystolic 10 mg tablet RxNorm: 501888 1 Tablet(s) PO QAM TAKE ONE TABLET BY MOUTH EVERY MORNING 12/29/2013 12/29/2013 Inactive Singulair 10 mg tablet RxNorm: 876047 1 Tablet(s) PO QD TAKE ONE TABLET BY MOUTH EVERY DAY 12/29/2013 05/25/2014 Inactive hydrocodone 10 mg-acetaminophen 325 mg tablet RxNorm: 811038 TAKE ONE TO TWO TABLETS BY MOUTH FOUR TIMES A DAY . MUST LAST 30 DAYS 12/29/20132013 Inactive (Response to an electronic controlled cornell bstance refill request - RxReferenceNumber: [id number]) Trazadone 75mg Tablet RxNorm: 1 Tablet(s) PO QHS as needed 03/23/2014 Inactive Trazadone 75mg Tablet RxNorm: 1 Tablet(s) PO QHS 12/24/20132014 Inactive Soma 350 mg tablet RxNorm: 187064 Tablet(s) PO TAKE ON E TABLET BY MOUTH THREE TIMES A DAY NEEDED FOR MUSCLE SPASMS. THIS MUST LAST 30 DAYS BETWEEN REFILLS. 12/10/2013 12/22/2013 Inactive (Appended: Cont rolled substance eRx refill - RxReferenceNumber: [id number]) diclofenac sodium 75 mg tablet,delayed release RxNorm: 96519 6 1 Tablet(s) PO BID for pain 12/10/2013 02/24/2014 Inactive allopurinol 300 mg tablet RxNorm: 582833 1 Tablet(s) PO QD 11/20/19 14 12/29/2013 Inactive alprazolam 0.5 mg tablet RxNorm: 190504 2 Tablet(s) PO BID 11/13/19 14 12/29/2013 Inactive prn clonidine 0.1 mg tablet RxNorm: 646083 1 Tablet(s) PO TID 11/12/2013 02/09/2014 Inactive replaces 0.2mg dose Klor-Con M20 mEq tablet,extended release RxNorm: 517769 2 Tablet(s) PO BID to use with lasix 11/12/2013 05/10/2014 Inactive Singulair 10 mg tablet RxNorm: 909360 1 Tablet(s) PO QD 11/12/2013 Inactive hydrocodone 10 mg-acetaminophen 325 mg tablet RxNorm: 256958 1-2 Tablet(s) PO QID as needed for severe pain 11/12/2013 12/28/2013 Inactive Bystolic 10 mg tablet RxNorm: 181461 1 Tablet(s) PO QAM 11/12/2013 Inactive Soma 350 mg tablet RxNorm: 880163 Tablet(s) PO TAKE ON E TABLET BY MOUTH THREE TIMES A DAY NEEDED FOR MUSCLE SPASMS. THIS MUST LAST 30 DAYS BETWEEN REFILLS. 10/13/2013 12/10/2013 Inactive (Appended: Cont rolled substance eRx refill - RxReferenceNumber: [id number]) hydrocodone 10 mg-acetaminophen 325 mg tablet RxNorm: 965174 1-2 Tablet(s) PO QID as needed for severe pain 10/03/2013 11/11/2013 Inactive diclofenac sodium 75 mg tablet,delayed release RxNorm: 15329 8 1 Tablet(s) PO BID for pain 09/11/2013 12/10/2013 Inactive alprazolam 0.5 mg tablet RxNorm: 642549 1 Tablet(s) PO BID May refill on 04/26/13 09/01/2013 10/30/2013 Inactive prn hydrocodone 10 mg-acetaminophen 325 mg tablet RxNorm: 544444 1-2 Tablet(s) PO QID as needed for severe pain 09/01/2013 10/02/2013 Inactive triamterene 75 mg-hydrochlorothiazide 50 mg tablet RxNorm: 3 64336 1 Tablet(s) PO QD 08/04/2013 08/31/2014 Inactive cyclobenzaprine 10 mg tablet RxNorm: 858602 1 Tablet(s) PO TID prn spasm 08/04/2013 08/13/2013 Inactive clonidine 0.1 mg tablet RxNorm: 952750 1 Tablet(s) PO TID 08/04/2013 11/11/2013 Inactive replaces 0.2mg dose cyclobenzaprine 10 mg tablet RxNorm: 086600 1 Tablet(s) PO TID prn spasm 07/23/2013 08/01/2013 Inactive hydrocodone 10 mg-acetaminophen 325 mg tablet RxNorm: 004601 2 1-2 Tablet(s) PO QID as needed for severe pain 06/09/2013 08/07/2013 Inactive Singulair 10 mg tablet RxNorm: 388604 1 Tablet(s) PO QD 05/29/2013 Inactive Klor-Con 8 mEq tablet,extended release RxNorm: 479005 1 Tablet( s) PO BID 05/29/2013 02/26/2014 Inactive allopurinol 300 mg tablet RxNorm: 651183 1 Tablet(s) PO QD 05/29/20 13 11/19/2013 Inactive Bystolic 10 mg tablet RxNorm: 830978 1 Tablet(s) PO QAM take one daily in the morning. 05/29/2013 11/11/2013 Inactive scopolamine 1.5 mg 72 hr Transderm Patch RxNorm: 113820 Application TD Q72H for motion sickness 05/26/2013 07/22/2013 Inactive Soma 350 mg tablet RxNorm: 121795 1 Tablet(s) PO TID as needed for spasm 05/19/2013 10/13/2013 Inactive diclofenac sodium 75 mg tablet,delayed release RxNorm: 92350 8 1 Tablet(s) PO BID for pain 05/14/2013 07/22/2013 Inactive allopurinol 300 mg tablet RxNorm: 659744 1 Tablet(s) PO QD 04/25/20 13 05/28/2013 Inactive alprazolam 0.5 mg tablet RxNorm: 270165 1 Tablet(s) PO BID May refill on 04/26/13 04/25/2013 06/23/2013 Inactive prn Celebrex 200 mg capsule RxNorm: 539645 1 Capsule(s) PO QD 04/16/2013 12/29/2013 Inactive alprazolam 0.5 mg tablet RxNorm: 878958 1 Tablet(s) PO BID May refill on 04/26/13 04/16/2013 04/24/2013 Inactive prn Soma 350 mg tablet RxNorm: 649344 1 Tablet(s) PO TID as needed for spasm 04/16/2013 No Stop Date Active Lasix 40 mg tablet RxNorm: 025088 1 Tablet(s) PO QAM s hould take potassium supplementation with this medication 04/16/2013 06/14/2013 Inactive clonidine 0.1 mg tablet RxNorm: 953218 1 Tablet(s) PO TID 04/16/2013 08/03/2013 Inactive replaces 0.2mg dose prednisone 20 mg tablet RxNorm: 536534 1 Tablet(s) PO BID 04/16/2013 04/20/2013 Inactive diclofenac sodium 75 mg tablet,delayed release RxNorm: 39264 8 1 Tablet(s) PO BID for pain 04/14/2013 05/13/2013 Inactive hydrocodone 10 mg-acetaminophen 325 mg tablet RxNorm: 473984 2 1-2 Tablet(s) PO QID as needed for severe pain 04/14/2013 No Stop Date Active Lasix 40 mg tablet RxNorm: 480553 1 Tablet(s) PO QAM s hould take potassium supplementation with this medication 03/31/2013 04/15/2013 Inactive Celebrex 200 mg capsule RxNorm: 817154 1 Capsule(s) PO QD 03/31/2013 04/15/2013 Inactive alprazolam 0.5 mg tablet RxNorm: 166894 1 Tablet(s) PO BID 03/28/20 13 04/15/2013 Inactive prn hydrocodone 10 mg-acetaminophen 325 mg tablet RxNorm: 971718 2 1-2 Tablet(s) PO QID as needed for severe pain 03/10/2013 No Stop Date Active metformin ER 500 mg 24 hr tablet,extended release RxNorm: 86 1018 1 Tablet(s) PO QD 03/06/2013 07/22/2013 Inactive clindamycin 300 mg capsule RxNorm: 222129 2 Capsule(s) PO TID 03/0503/14/2013 Inactive Zaroxolyn 2.5 mg tablet RxNorm: 078532 1 Tablet(s) PO QAM 03/05/2013 05/19/2015 Inactive amlodipine 10 mg tablet RxNorm: 466851 1 Tablet(s) PO QD 03/03/2013 0 05/25/2013 Inactive Norvasc 10 mg tablet RxNorm: 460703 1 Tablet(s) PO QD 02/28/201307/11 Inactive Celebrex 200 mg capsule RxNorm: 668049 1 Capsule(s) PO QD 02/28/2013 03/30/2013 Inactive diclofenac sodium 75 mg tablet,delayed release RxNorm: 31434 8 1 Tablet(s) PO BID for pain 02/14/2013 03/15/2013 Inactive Soma 350 mg tablet RxNorm: 209561 1 Tablet(s) PO TID as needed for spasm 02/14/2013 No Stop Date Active hydrocodone 10 mg-acetaminophen 325 mg tablet RxNorm: 208313 2 1-2 Tablet(s) PO QID as needed for severe pain 02/14/2013 No Stop Date Active Norvasc 10 mg tablet RxNorm: 650270 1 Tablet(s) PO QD 02/10/201302/09 Inactive Celebrex 200 mg capsule RxNorm: 280847 1 Capsule(s) PO QD 01/27/2013 01/26/2013 Inactive Premarin 1.25 mg tablet RxNorm: 636916 1-2 Tablet(s) PO QD 01/28/20 13 06/25/2013 Inactive alprazolam 0.5 mg tablet RxNorm: 708086 1 Tablet(s) PO BID 01/28/20 13 02/25/2013 Inactive prn amlodipine 5 mg tablet RxNorm: 333680 1 Tablet(s) PO QD 01/27/2013 Inactive Celebrex 200 mg capsule RxNorm: 372346 1 Capsule(s) PO QD 01/27/2013 02/27/2013 Inactive gabapentin 600 mg tablet RxNorm: 973801 1 Tablet(s) PO QHS 01/16/20 13 07/22/2013 Inactive Soma 350 mg tablet RxNorm: 480879 1 Tablet(s) PO TID as needed for spasm 01/15/2013 No Stop Date Active hydrocodone 10 mg-acetaminophen 325 mg tablet RxNorm: 270354 2 1-2 Tablet(s) PO QID as needed for severe pain 01/15/2013 No Stop Date Active Soma 350 mg tablet RxNorm: 316123 1 Tablet(s) PO TID as needed for spasm 01/13/2013 No Stop Date Active alprazolam 0.5 mg tablet RxNorm: 601112 1 Tablet(s) PO BID 12/31/19 13 01/26/2013 Inactive prn diclofenac sodium 75 mg tablet,delayed release RxNorm: 94204 8 1 Tablet(s) PO BID for pain 12/09/2012 01/07/2013 Inactive gabapentin 600 mg tablet RxNorm: 474707 1 Tablet(s) PO QHS 12/10/19 13 01/07/2013 Inactive hydrocodone 10 mg-acetaminophen 325 mg tablet RxNorm: 976991 2 1-2 Tablet(s) PO QID as needed for severe pain 12/02/2012 No Stop Date Active Levaquin 750 mg tablet RxNorm: 046534 1 Tablet(s) PO QD 11/21/2012 Inactive Singulair 10 mg tablet RxNorm: 295257 1 Tablet(s) PO QD 11/11/2012 Inactive clonidine 0.2 mg tablet RxNorm: 560083 1 Tablet(s) PO TID 11/11/2012 04/15/2013 Inactive alprazolam 0.5 mg tablet RxNorm: 127014 1 Tablet(s) PO BID 11/12/19 13 12/10/2012 Inactive prn Klor-Con 8 mEq tablet,extended release RxNorm: 639580 1 Tablet( s) PO BID 11/11/2012 03/04/2013 Inactive hydrocodone 10 mg-acetaminophen 325 mg tablet RxNorm: 437636 2 1-2 Tablet(s) PO QID as needed for severe pain 11/06/2012 No Stop Date Active alprazolam 0.5 mg tablet RxNorm: 805495 1 Tablet(s) PO BID 10/15/19 13 11/10/2012 Inactive prn hydrocodone-acetaminophen 10 mg-325 mg tablet RxNorm: 916792 2 1-2 Tablet(s) PO QID as needed for severe pain 10/10/2012 10/09/2012 Inactive allopurinol 300 mg tablet RxNorm: 804985 1 Tablet(s) PO QD 09/20/19 13 12/18/2012 Inactive alprazolam 0.5 mg tablet RxNorm: 080006 1 Tablet(s) PO BID 09/17/19 13 10/14/2012 Inactive prn hydrocodone-acetaminophen 10 mg-325 mg tablet RxNorm: 790965 2 1-2 Tablet(s) PO QID as needed for severe pain 08/22/2012 08/21/2012 Inactive Norvasc 10 mg tablet RxNorm: 514863 1 Tablet(s) PO QD 08/12/201201/10 Inactive Premarin 1.25 mg tablet RxNorm: 969991 1-2 Tablet(s) PO QD 07/30/20 12 12/26/2012 Inactive alprazolam 0.5 mg tablet RxNorm: 868116 1 Tablet(s) PO BID 07/29/20 12 08/27/2012 Inactive prn Klor-Con 8 mEq tablet,extended release RxNorm: 261864 1 Tablet( s) PO BID 07/29/2012 11/10/2012 Inactive hydrocodone-acetaminophen 10 mg-325 mg tablet RxNorm: 108853 2 1-2 Tablet(s) PO QID as needed for severe pain 07/29/2012 No Stop Date Active Premarin 1.25 mg tablet RxNorm: 217947 1-2 Tablet(s) PO QD 07/29/20 12 07/29/2012 Inactive clonidine 0.2 mg tablet RxNorm: 093556 1 Tablet(s) PO TID 07/29/2012 10/28/2012 Inactive ketorolac 10 mg tablet RxNorm: 816718 1 Tablet(s) PO QID prn mitul joseph 07/18/2012 No Stop Date Active hydrocodone-acetaminophen 10 mg-325 mg tablet RxNorm: 407095 2 1-2 Tablet(s) PO QID as needed for severe pain 07/03/2012 No Stop Date Active amlodipine 5 mg tablet RxNorm: 483707 1 Tablet(s) PO QD 07/02/2012 Inactive allopurinol 300 mg tablet RxNorm: 378540 1 Tablet(s) PO QD 07/02/20 12 09/19/2012 Inactive Celebrex 200 mg capsule RxNorm: 022333 1 Capsule(s) PO QD for j oint pain 06/26/2012 10/23/2012 Inactive diclofenac sodium 75 mg tablet,delayed release RxNorm: 27488 8 1 Tablet(s) PO BID for pain 06/19/2012 09/16/2012 Inactive hydrocodone-acetaminophen 10 mg-325 mg tablet RxNorm: 342932 2 1-2 Tablet(s) PO QID as needed for severe pain 06/10/2012 No Stop Date Active alprazolam 0.5 mg tablet RxNorm: 134816 1 Tablet(s) PO BID 06/03/20 12 07/02/2012 Inactive prn ketorolac 10 mg tablet RxNorm: 716275 1 Tablet(s) PO Q8H 05/27/2012 0 01/21/2019 Inactive as needed for headache hydrocodone-acetaminophen 10 mg-325 mg tablet RxNorm: 929258 2 1-2 Tablet(s) PO QID as needed for severe pain 05/15/2012 No Stop Date Active allopurinol 300 mg tablet RxNorm: 383526 1 Tablet(s) PO QD 05/14/20 12 06/12/2012 Inactive allopurinol 300 mg tablet RxNorm: 563703 1 Tablet(s) PO QD 05/14/20 12 05/13/2012 Inactive amlodipine 5 mg tablet RxNorm: 225118 1 Tablet(s) PO QD 05/01/2012 Inactive amlodipine 5 mg Tab RxNorm: 557359 1 Tablet(s) PO QD 05/01/201204/30 Inactive Celebrex 200 mg capsule RxNorm: 409873 1 Capsule(s) PO QD for j oint pain 05/01/2012 06/25/2012 Inactive Singulair 10 mg tablet RxNorm: 423902 1 Tablet(s) PO QD 05/01/2012 Inactive alprazolam 0.5 mg tablet RxNorm: 386892 1 Tablet(s) PO BID 05/01/20 12 05/30/2012 Inactive prn Celebrex 200 mg Cap RxNorm: 511976 1 Capsule(s) PO QD for joint radu n 05/01/2012 04/30/2012 Inactive hydrocodone-acetaminophen 10 mg-325 mg tablet RxNorm: 449578 2 1-2 Tablet(s) PO QID as needed for severe pain 04/19/2012 No Stop Date Active Lasix 40 mg tablet RxNorm: 120255 1 Tablet(s) PO QAM s hould take potassium supplementation with this medication 04/05/2012 06/03/2012 Inactive alprazolam 0.5 mg Tab RxNorm: 462445 1 Tablet(s) PO BID 04/05/2012 Inactive prn hydrocodone-acetaminophen 10 mg-325 mg Tab RxNorm: 7633217 1-2 Tablet(s) PO QID as needed for severe pain 03/25/2012 03/24/2012 Inactive clonidine 0.2 mg Tab RxNorm: 824645 1 Tablet(s) PO TID 03/08/2012 Inactive alprazolam 0.5 mg Tab RxNorm: 116183 1 Tablet(s) PO BID 03/08/2012 Inactive prn Soma 350 mg tablet RxNorm: 065726 1 Tablet(s) PO TID for spasm 02/0903/18/2012 Inactive clonidine 0.2 mg tablet RxNorm: 601257 1 Tablet(s) PO TID 03/08/2012 07/28/2012 Inactive Celebrex 200 mg Cap RxNorm: 115142 1 Capsule(s) PO QD for joint radu n 03/01/2012 04/29/2012 Inactive amlodipine 5 mg Tab RxNorm: 684983 1 Tablet(s) PO QD 02/26/201202/24 Inactive amlodipine 5 mg Tab RxNorm: 400572 1 Tablet(s) PO QD 02/26/201204/25 Inactive Bactroban 2 % Ointment RxNorm: 016479 Application TOP QID to sores 02/23/2012 No Stop Date Active amlodipine 2.5 mg tablet RxNorm: 292316 1 Tablet(s) PO QHS 02/20/20 12 02/25/2012 Inactive doxycycline hyclate 100 mg Cap RxNorm: 8016990 1 Capsule(s) PO BID 02/20/2012 02/29/2012 Inactive hydrocodone-acetaminophen 10 mg-325 mg Tab RxNorm: 8056130 1-2 T ablet(s) PO QID 02/08/2012 No Stop Date Active alprazolam 0.5 mg Tab RxNorm: 225920 1 Tablet(s) PO BID 02/08/2012 Inactive prn Singulair 10 mg Tab RxNorm: 997324 1 Tablet(s) PO QD 02/08/201204/30 Inactive Soma 350 mg Tab RxNorm: 658991 1 Tablet(s) PO TID for spasm 012 03/07/2012 Inactive Soma 350 mg Tab RxNorm: 273493 1 Tablet(s) PO TID for spasm 012 02/05/2012 Inactive diclofenac sodium 75 mg tablet,delayed release RxNorm: 94764 8 1 Tablet(s) PO BID for pain 02/01/2012 03/18/2012 Inactive Celebrex 200 mg Cap RxNorm: 022684 1 Capsule(s) PO QD for joint radu n 01/30/2012 02/28/2012 Inactive Lasix 40 mg Tab RxNorm: 075059 1 Tablet(s) PO QAM 01/24/2012 03/18/20 12 Inactive potassium chloride ER 20 mEq tablet,extended release(part/cr yst) RxNorm: 545670 2 Tablet(s) PO BID 01/24/2012 02/22/2012 Inactive alprazolam 0.5 mg Tab RxNorm: 015608 1 Tablet(s) PO BID 01/11/2012 Inactive prn hydrocodone-acetaminophen 10 mg-325 mg Tab RxNorm: 9175867 1-2 T ablet(s) PO QID 01/11/2012 No Stop Date Active Ambien 10 mg Tab RxNorm: 282629 1 Tablet(s) PO QHS 01/11/2012 012 Inactive Klor-Con 8 mEq Tab RxNorm: 470692 1 Tablet(s) PO BID 01/11/201201/22 Inactive diclofenac sodium 75 mg Tab, Delayed Release RxNorm: 296026 1 Tablet(s) PO BID for pain 01/10/2012 01/31/2012 Inactive Ambien 10 mg Tab RxNorm: 249865 1 Tablet(s) PO QHS 12/11/2011 012 Inactive alprazolam 0.5 mg Tab RxNorm: 333278 1 Tablet(s) PO BID 12/11/2011 Inactive prn hydrocodone 10 mg-acetaminophen 325 mg tablet RxNorm: 977446 1-2 Tablet(s) PO TID 11/28/2011 No Stop Date Active as needed for pa in - Previous quantity #240, will start dosing for #180 in April 2011 per Doctor Appiah. Ambien 10 mg Tab RxNorm: 669261 1 Tablet(s) PO QHS 11/09/2011 012 Inactive alprazolam 0.5 mg Tab RxNorm: 100416 1 Tablet(s) PO BID 11/09/2011 Inactive prn hydrocodone-acetaminophen 10 mg-325 mg Tab RxNorm: 0949551 1-2 T ablet(s) PO TID 11/06/2011 No Stop Date Active as needed for pain - Previous quantity #240, will start dosing for #180 in April 2011 per Doctor Td. Singulair 10 mg Tab RxNorm: 143576 1 Tablet(s) PO QD 10/13/201110/12 Inactive Singulair 10 mg Tab RxNorm: 817523 1 Tablet(s) PO QD 10/13/201102/06 Inactive hydrocodone-acetaminophen 10 mg-325 mg Tab RxNorm: 9406315 1-2 T ablet(s) PO TID 10/10/2011 10/09/2011 Inactive as needed for pain - Previous quantity #240, will start dosing for #180 in April 2011 per Doctor Td. hydrocodone-acetaminophen 10 mg-325 mg Tab RxNorm: 6246640 1-2 T ablet(s) PO TID 10/09/2011 No Stop Date Active as needed for pain - Previous quantity #240, will start dosing for #180 in April 2011 per Doctor Td. Klor-Con 8 mEq Tab RxNorm: 934092 1 Tablet(s) PO BID 10/02/201101/09 Inactive triamterene 75 mg-hydrochlorothiazide 50 mg tablet RxNorm: 3 32924 1 Tablet(s) PO QD 09/14/2011 03/06/2013 Inactive Ambien 10 mg Tab RxNorm: 451935 1 Tablet(s) PO QHS 09/14/2011 012 Inactive hydrocodone-acetaminophen 10 mg-325 mg Tab RxNorm: 4434933 1-2 T ablet(s) PO TID 09/14/2011 No Stop Date Active as needed for pain - Previous quantity #240, will start dosing for #180 in April 2011 per Doctor Td. alprazolam 0.5 mg Tab RxNorm: 882939 1 Tablet(s) PO BID 09/14/2011 Inactive prn Zithromax 500 mg Tab RxNorm: 386766 1 Tablet(s) PO QD 09/13/201109/10 Inactive prednisone 20 mg Tab RxNorm: 836597 1 Tablet(s) PO BID 08/31/2011 Inactive Ambien 10 mg Tab RxNorm: 702062 1 Tablet(s) PO QHS 08/17/2011 011 Inactive hydrocodone-acetaminophen 10 mg-325 mg Tab RxNorm: 1356409 1-2 T ablet(s) PO TID 08/17/2011 No Stop Date Active as needed for pain - Previous quantity #240, will start dosing for #180 in April 2011 per Doctor Td. clonidine 0.2 mg Tab RxNorm: 386347 1 Tablet(s) PO TID 08/17/201112/2011 Inactive Ambien 10 mg Tab RxNorm: 735433 1 Tablet(s) PO QHS 08/17/2011 019 Inactive alprazolam 0.5 mg Tab RxNorm: 418066 1 Tablet(s) PO BID 08/17/2011 Inactive prn hydrocodone-acetaminophen 10 mg-325 mg Tab RxNorm: 7782265 1-2 T ablet(s) PO TID 08/17/2011 08/16/2011 Inactive as needed for pain - Previous quantity #240, will start dosing for #180 in April 2011 per Doctor Td. Singulair 10 mg Tab RxNorm: 051310 1 Tablet(s) PO QD 08/17/201108/16 Inactive Klor-Con 8 mEq Tab RxNorm: 560996 1 Tablet(s) PO QD 08/17/20112011 Inactive alprazolam 0.5 mg Tab RxNorm: 276411 1 Tablet(s) PO BID 07/20/2011 Inactive prn Ambien 10 mg Tab RxNorm: 585709 1 Tablet(s) PO QHS 07/20/2011 012 Inactive Singulair 10 mg Tab RxNorm: 415275 1 Tablet(s) PO QD 07/20/201107/19 Inactive Premarin 1.25 mg tablet RxNorm: 881030 2 Tablet(s) PO QD 07/20/2011 0 01/21/2019 Inactive Premarin 1.25 mg tablet RxNorm: 976636 1-2 Tablet(s) PO QD 07/20/20 11 12/16/2011 Inactive Premarin 1.25 mg Tab RxNorm: 284747 1-2 Tablet(s) PO QD 07/06/2011 Inactive alprazolam 0.5 mg Tab RxNorm: 589256 1 Tablet(s) PO BID 06/22/2011 Inactive prn alprazolam 0.5 mg Tab RxNorm: 458270 1 Tablet(s) PO BID 06/22/2011 Inactive prn Premarin 1.25 mg Tab RxNorm: 697828 1 Tablet(s) PO QD m ay do 90 day fill if desired 06/22/2011 07/05/2011 Inactive hydrocodone-acetaminophen 10 mg-325 mg Tab RxNorm: 1847476 1-2 T ablet(s) PO TID 06/22/2011 No Stop Date Active as needed for pain - Previous quantity #240, will start dosing for #180 in April 2011 per Doctor Td. clonidine 0.2 mg Tab RxNorm: 292371 1 Tablet(s) PO TID 05/25/201103/2011 Inactive triamterene-hydrochlorothiazide 75 mg-50 mg Tab RxNorm: 3108 18 1 Tablet(s) PO QD 05/25/2011 09/13/2011 Inactive alprazolam 0.5 mg Tab RxNorm: 033244 1 Tablet(s) PO BID 05/25/2011 Inactive prn hydrocodone-acetaminophen 10 mg-325 mg Tab RxNorm: 0573346 1-2 T ablet(s) PO TID 05/25/2011 No Stop Date Active as needed for pain - Previous quantity #240, will start dosing for #180 in April 2011 per Doctor Td. Robaxin-750 750 mg Tab RxNorm: 502372 2 Tablet(s) PO QHS 05/22/2011 1 Inactive prn spasm hydrocodone-acetaminophen 10 mg-325 mg Tab RxNorm: 9073771 1-2 T ablet(s) PO TID 04/26/2011 No Stop Date Active as needed for pain - Previous quantity #240, will start dosing for #180 in April 2011 per Doctor Td. alprazolam 0.5 mg Tab RxNorm: 155893 1 Tablet(s) PO BID 04/25/2011 Inactive prn Klor-Con 8 mEq Tab RxNorm: 577888 1 Tablet(s) PO QD 03/30/20112010 Inactive Klor-Con 8 mEq Tab RxNorm: 662519 1 Tablet(s) PO QD 03/29/20112010 Inactive hydrocodone-acetaminophen 10 mg-325 mg Tab RxNorm: 7779425 1-2 T ablet(s) PO TID 03/20/2011 04/25/2011 Inactive as needed for pain - Previous quantity #240, will start dosing for #180 in April 2011 per Doctor Td. alprazolam 0.5 mg Tab RxNorm: 397100 1 Tablet(s) PO BID prn 011 03/30/2011 Inactive Ambien 10 mg Tab RxNorm: 822287 1 Tablet(s) PO QHS 03/01/2011 011 Inactive cyclobenzaprine 10 mg Tab RxNorm: 686071 1 Tablet(s) PO TID 011 03/18/2012 Inactive cyclobenzaprine 10 mg Tab RxNorm: 157334 1 Tablet(s) PO TID 011 01/08/2011 Inactive cyclobenzaprine 10 mg Tab RxNorm: 838416 1 Tablet(s) PO TID 011 12/20/2010 Inactive terbinafine 250 mg Tab RxNorm: 224639 1 Tablet(s) PO QD 12/12/2010 Inactive triamterene-hydrochlorothiazide 75 mg-50 mg Tab RxNorm: 3108 18 1 Tablet(s) PO QD 12/07/2010 01/12/2020 Inactive Klor-Con 8 8 mEq Tab RxNorm: 810214 1 Tablet(s) PO QD 12/07/201001/08 Inactive Premarin 1.25 mg Tab RxNorm: 074736 2 Tablet(s) PO QD 12/07/201001/08 Inactive clonidine 0.2 mg Tab RxNorm: 683772 1 Tablet(s) PO TID 12/07/2010 Inactive hydrocodone-acetaminophen 7.5 mg-650 mg Tab RxNorm: 551940 1 Ta blet(s) PO Q4H 12/05/2010 01/21/2019 Inactive hydrocodone-acetaminophen 7.5 mg-650 mg Tab RxNorm: 525560 1 Ta blet(s) PO Q4H 10/26/2010 11/14/2010 Inactive hydrocodone-acetaminophen 7.5 mg-650 mg Tab RxNorm: 379096 1 Ta blet(s) PO Q4H 10/13/2010 10/25/2010 Inactive hydrocodone-acetaminophen 7.5 mg-650 mg Tab RxNorm: 986430 1 Ta blet(s) PO Q4H 09/15/2010 09/12/2010 Inactive alprazolam 0.5 mg Tab RxNorm: 544798 1 Tablet(s) PO BID prn 011 09/12/2010 Inactive terbinafine 250 mg Tab RxNorm: 100192 1 Tablet(s) PO QD 09/05/2010 Inactive hydrocodone-acetaminophen 7.5 mg-650 mg Tab RxNorm: 385938 1 Ta blet(s) PO Q4H 08/29/2010 09/17/2010 Inactive alprazolam 0.5 mg Tab RxNorm: 865779 1 Tablet(s) PO BID prn 010 09/27/2010 Inactive alprazolam 0.5 mg Tab RxNorm: 725290 1 Tablet(s) PO BID prn 010 09/06/2010 Inactive Klor-Con 8 mEq Tab RxNorm: 904192 1 Tablet(s) PO QD 08/08/20102010 Inactive hydrocodone-acetaminophen 7.5 mg-650 mg Tab RxNorm: 158097 1 Ta blet(s) PO Q4H 08/08/2010 08/27/2010 Inactive Ambien 10 mg Tab RxNorm: 682276 1 Tablet(s) PO QHS 08/08/2010 Inactive clonidine 0.2 mg Tab RxNorm: 247515 1 Tablet(s) PO TID 08/08/2010 Inactive Premarin 1.25 mg Tab RxNorm: 614696 2 Tablet(s) PO QD 08/08/201009/12 Inactive Ambien 10 mg Tab RxNorm: 580424 1 Tablet(s) PO QHS 07/18/2010 Inactive alprazolam 0.5 mg Tab RxNorm: 154351 1 Tablet(s) PO BID prn 010 08/07/2010 Inactive hydrocodone-acetaminophen 7.5 mg-650 mg Tab RxNorm: 047992 1 Ta blet(s) PO Q4H 07/12/2010 07/31/2010 Inactive clonidine 0.2 mg Tab RxNorm: 589433 1 Tablet(s) PO TID 06/20/2010 Inactive terbinafine 250 mg Tab RxNorm: 415058 1 Tablet(s) PO QD 05/24/2010 Inactive Clonidine 0.2 mg Tab RxNorm: 992846 1 Tablet(s) PO TID 05/24/201006/2010 Inactive Ambien 10 mg Tab RxNorm: 888435 1 Tablet(s) PO QHS 05/24/2010 010 Inactive alprazolam 0.5 mg Tab RxNorm: 283283 1 Tablet(s) PO BID 05/24/2010 Inactive Klor-Con 8 mEq Tab RxNorm: 527702 1 Tablet(s) PO QD 05/24/20102009 Inactive alprazolam 0.5 mg Tab RxNorm: 452285 2 Tablet(s) PO QD prn 05/24/20 10 07/17/2010 Inactive triamterene-hydrochlorothiazide 75 mg-50 mg Tab RxNorm: 3108 18 1 Tablet(s) PO QD 05/24/2010 11/19/2010 Inactive Ambien 10 mg Tab RxNorm: 385114 1 Tablet(s) PO QHS 05/23/2010 010 Inactive Alprazolam 0.5 mg Tab RxNorm: 486698 2 Tablet(s) PO QD prn 05/23/2005/23/2010 Inactive Premarin 1.25 mg Tab RxNorm: 175681 2 Tablet(s) PO QD 05/19/201007/12 Inactive Hydrocodone-Acetaminophen 7.5 mg-650 mg Tab RxNorm: 690801 1 Ta blet(s) PO Q4H 05/19/2010 03/20/2011 Inactive Prednisone 20 mg Tab RxNorm: 267514 1 Tablet(s) PO BID 05/17/2010 Inactive Prednisone 20 mg Tab RxNorm: 475482 1 Tablet(s) PO BID 05/06/201001/2010 Inactive Premarin 1.25 mg Tab RxNorm: 305157 Tablet(s) PO 2 M-W-F, and 1 Wk-An-Hpj-Sun 05/05/2010 08/02/2010 Inactive Premarin 1.25 mg Tab RxNorm: 666997 Tablet(s) PO 2 M-W-F, and 1 Tc-Hk-Fgh-Sun 05/04/2010 05/04/2010 Inactive Premarin 1.25 mg Tab RxNorm: 610901 Tablet(s) PO 2 M-W-F, and 1 Ml-Rv-Dwk-Sun 05/04/2010 05/03/2010 Inactive Prednisone 20 mg Tab RxNorm: 026902 1 Tablet(s) PO BID 04/27/2010 Inactive Alprazolam 0.5 mg Tab RxNorm: 479699 2 Tablet(s) PO QD prn 04/26/20 10 05/22/2010 Inactive Clindamycin 300 mg Cap RxNorm: 156821 2 Capsule(s) PO TID 04/05/2010 04/18/2010 Inactive Terbinafine 250 mg Tab RxNorm: 201246 1 Tablet(s) PO QD 04/04/2010 Inactive Hydrocodone-Acetaminophen 7.5 mg-650 mg Tab RxNorm: 662898 1 Ta blet(s) PO Q4H 03/30/2010 04/18/2010 Inactive Avelox 400 mg Tab RxNorm: 064340 1 Tablet(s) PO QD 03/09/2010 010 Inactive Hydrocodone-Acetaminophen 7.5 mg-650 mg Tab RxNorm: 919736 1 Ta blet(s) PO Q4H 03/08/2010 03/27/2010 Inactive Alprazolam 0.5 mg Tab RxNorm: 054136 2 Tablet(s) PO QD prn 03/08/20 10 04/25/2010 Inactive Klor-Con 8 mEq Tab RxNorm: 561570 1 Tablet(s) PO QD when takes lasi x 03/07/2010 09/29/2019 Inactive Premarin 1.25 mg Tab RxNorm: 455190 1 Tablet(s) PO QD 03/03/201003/11 Inactive Alprazolam 0.5 mg Tab RxNorm: 971046 1 Tablet(s) PO BID PRN 010 No Stop Date Active triamterene-hydrochlorothiazide 75 mg-50 mg Tab RxNorm: 3108 18 1 Tablet(s) PO QD 02/09/2010 02/03/2011 Inactive Hydrocodone-Acetaminophen 10 mg-750 mg Tab RxNorm: 999346 1 Tablet(s) PO Q4H PRN 02/09/2010 03/20/2011 Inactive Clonidine 0.2 mg Tab RxNorm: 520988 1 Tablet(s) PO TID 01/13/201009/2009 Inactive Alprazolam 0.5 mg Tab RxNorm: 287379 1 Tablet(s) PO BID PRN 010 01/12/2010 Inactive Hydrocodone-Acetaminophen 10 mg-750 mg Tab RxNorm: 157272 1 Tablet(s) PO Q4H PRN 01/13/2010 01/12/2010 Inactive ANGELIQ 1 mg-0.5 mg Tab RxNorm: 0675179 1 Tablet(s) PO QD 12/27/2009 01/23/2010 Inactive Lasix 40 mg Tab RxNorm: 314527 1 Tablet(s) PO QAM 12/14/2009 06/11/20 10 Inactive Vitamin B12 1000mcg Tablet RxNorm: 1 Tablet(s) PO QD No Start Date Active cyclobenzaprine 10 mg tablet RxNorm: 632201 1 Tablet(s) PO TID as needed DO NOT USE WITH BACLOFEN No Start Date Active Vitamin D 5,000 unit Tab RxNorm: 1 Tablet(s) PO QD No Start Date Active vitamin E (dl, acetate) 400 unit Cap RxNorm: 548529 1 Capsule(s ) PO QD No Start Date Active Benadryl 25 mg Cap RxNorm: 0347897 Capsule(s) PO PRN No Start Date Inactive amitriptyline 100 mg tablet RxNorm: 362704 1 Tablet(s) PO QHS No St art Date 11/27/2016 Inactive Zithromax Z-Dustin 250 mg tablet RxNorm: 671386 Tablet(s) PO as di rected No Start Date 07/22/2013 Inactive Klor-Con 8 mEq tablet,extended release RxNorm: 016703 1 Tablet( s) PO BID No Start Date 07/28/2012 Inactive scopolamine 1.5 mg 72 hr Transderm Patch RxNorm: 121761 Application TD Q72H for motion sickness No Start Date 05/25/2013 Inactive Klonopin 1 mg tablet RxNorm: 632257 1-2 Tablet(s) PO QHS as nee ded for sleep No Start Date 06/20/2015 Inactive Klor-Con M20 mEq tablet,extended release RxNorm: 591009 2 Tablet(s) PO BID to use with lasix No Start Date 11/11/2013 Inactive Bystolic 5 mg tablet RxNorm: 699221 1 Tablet(s) PO QD No Start Date 1 Inactive Bystolic 10 mg tablet RxNorm: 639049 1 Tablet(s) PO BID No Start Da te 07/06/2015 Inactive Premarin 1.25 mg Tab RxNorm: 486136 Tablet(s) PO 2 -W-, and 1 Yo-Ei-Mfr-Sun No Start Date 05/03/2010 Inactive baclofen 20 mg tablet RxNorm: 439117 1 Tablet(s) PO TID as needed for muscle spasm No Start Date 07/22/2015 Inactive hydrocodone-acetaminophen 7.5 mg-650 mg Tab RxNorm: 668392 1 Tablet(s) PO Q4H as needed for pain No Start Date 03/20/2011 Inactive albuterol sulfate 1.25 mg/3 mL Neb Solution RxNorm: 252298 1 Unit Dose INH Q4H 2boxes No Start Date 09/06/2015 Inactive Butrans 20 mcg/hour Transderm Patch RxNorm: 506499 1 TD WEEKLY apply to skin weekly after removing previous. No Start Date 07/22/2013 Inactive Medrol (Dustin) 4 mg tablets in a dose pack RxNorm: 228545 Tablet(s) PO As Directed No Start Date 07/30/2016 Inactive hydrocodone-acetaminophen 10 mg-325 mg Tab RxNorm: 2820668 1-2 Tablet(s) PO TID as needed for pain No Start Date 03/19/2011 Inactive Klonopin 1 mg tablet RxNorm: 247769 1 Tablet(s) PO QHS No Start Date 02/28/2016 Inactive honey topical RxNorm: topical No Start Date 06/16/2018 Inactive Clonidine 0.2 mg Tab RxNorm: 776697 1 Tablet(s) PO TID No Start Date 01/12/2010 Inactive ketorolac 10 mg tablet RxNorm: 689275 1 Tablet(s) PO Q8H No Start D ate 03/18/2012 Inactive as needed for headache Singulair 10 mg Tab RxNorm: 999054 1 Tablet(s) PO QD No Start Date Inactive Premarin 1.25 mg Tab RxNorm: 283341 1 Tablet(s) PO QD No Start Date 1 Inactive Flonase 50 mcg/Actuation Nasal [place] RxNorm: 1709270 1 [place] AL BID No Start Date 03/18/2012 Inactive Terbinafine 250 mg Tab RxNorm: 854658 1 Tablet(s) PO QD No Start Da te 04/03/2010 Inactive Fexofenadine 180 mg Tab RxNorm: 9196672 1 Tablet(s) PO QD No Start Date 09/06/2015 Inactive baclofen 20 mg tablet RxNorm: 951658 1 Tablet(s) PO TID as needed N o Start Date 05/25/2014 Inactive Diovan 160 mg Tab RxNorm: 923882 1 Tablet(s) PO QD No Start Date 09/12 Inactive mupirocin 2 % topical ointment RxNorm: 759978 1 Application TOP QID No Start Date 04/25/2016 Inactive ZOFRAN ODT 4 mg Tab, Rapid Dissolve RxNorm: 704760 1 Tablet(s) PO Q4H No Start Date 03/18/2012 Inactive as needed for nausea and vomiting Alprazolam 0.5 mg Tab RxNorm: 651274 1 Tablet(s) PO BID PRN No Star t Date 01/12/2010 Inactive cyclobenzaprine 10 mg tablet RxNorm: 204188 1 Tablet(s) PO TID as needed for muscle spasm No Start Date 10/08/2017 Inactive Albuterol 0.083% Aerosol Solution RxNorm: 1 Appl ication INH Q4H Use one ampule every 4 hrs with nebulizer as needed for shortness of breath. No Start Date 10/09/2010 Inactive lorazepam 1 mg tablet RxNorm: 377706 1 1/2 Tablet(s) PO QHS No Star t Date 02/02/2016 Inactive Melatonin 3 mg Tab RxNorm: 795825 Tablet(s) PO PRN No Start Date 07/11 Inactive Medrol (Dustin) 4 mg Tabs in a Dose Pack RxNorm: 267255 Tablet(s) PO N o Start Date 11/28/2010 Inactive lorazepam 1 mg tablet RxNorm: 669224 1 Tablet(s) PO QHS as need ed for sleep No Start Date 01/30/2016 Inactive hydrocodone-acetaminophen 10 mg-325 mg Tab RxNorm: 3606986 1-2 Tablet(s) PO QID as needed for severe pain No Start Date 03/24/2012 Inactive celecoxib 200 mg capsule RxNorm: 890871 1 Capsule(s) PO BID No Star t Date 06/26/2019 Inactive amlodipine 5 mg-benazepril 20 mg capsule RxNorm: 808647 1 Capsu le(s) PO QD No Start Date 04/10/2017 Inactive Bystolic 20 mg tablet RxNorm: 252861 1/2 Tablet(s) PO QAM No Start Date 01/23/2016 Inactive Bystolic 20 mg tablet RxNorm: 793553 1 Tablet(s) PO QAM No Start Da te 04/25/2016 Inactive Ambien 10 mg Tab RxNorm: 233051 1 Tablet(s) PO QHS No Start Date 05/11 Inactive Klor-Con 8 mEq Tab RxNorm: 142550 1 Tablet(s) PO QD when takes lasix No Start Date 03/06/2010 Inactive aspirin 81 mg tablet RxNorm: 336645 1 Tablet(s) PO QD No Start Date 0 01/29/2018 Inactive hydrocodone-acetaminophen 10 mg-325 mg Tab RxNorm: 9792454 1-2 T ablet(s) PO QID No Start Date 01/10/2012 Inactive Bystolic 10 mg tablet RxNorm: 477999 1 Tablet(s) PO QAM take one daily in the morning. No Start Date 05/28/2013 Inactive nystatin 100,000 unit/mL Oral Susp RxNorm: 774249 5 Milliliter( s) PO QID No Start Date 03/18/2012 Inactive swish and spit scopolamine 1.5 mg 72 hr Transderm Patch RxNorm: 843722 1 Unit Dose TD Q72H for motion sickness No Start Date 12/23/2013 Inactive Hydrocodone-Acetaminophen 10 mg-750 mg Tab RxNorm: 271801 1 Tablet(s) PO Q4H PRN No Start Date 01/12/2010 Inactive Soma 350 mg tablet RxNorm: 404253 1 Tablet(s) PO TID as needed for spasm No Start Date 01/12/2013 Inactive baclofen 10 mg tablet RxNorm: 829247 1 Tablet(s) PO TID as needed for muscle spasm No Start Date 09/18/2019 Inactive Soma 350 mg Tab RxNorm: 617736 1 Tablet(s) PO TID for spasm No Star t Date 01/31/2012 Inactive Co Q-10 400 mg capsule RxNorm: 225888 1 Capsule(s) PO QD No Start D ate 01/21/2019 Inactive nystatin 100,000 unit/gram topical cream RxNorm: 239620 Applica tion TOP BID No Start Date 03/22/2015 Inactive Exforge 5 mg-160 mg Tab RxNorm: 163767 1 Tablet(s) PO QD No Start D ate 10/09/2010 Inactive Hydrocodone-Acetaminophen 7.5 mg-650 mg Tab RxNorm: 688219 1 Ta blet(s) PO Q4H No Start Date 03/07/2010 Inactive Robaxin-750 750 mg Tab RxNorm: 667462 1-2 Tablet(s) PO TID prn spasm No Start Date 05/21/2011 Inactive amlodipine 5 mg tablet RxNorm: 217935 1 Tablet(s) PO QHS No Start D ate 09/29/2015 Inactive oxycodone-acetaminophen 10 mg-325 mg tablet RxNorm: 2930080 1-2 Tablet(s) PO Q6H No Start Date 06/16/2018 Inactive Triamterene-Hydrochlorothiazide 75 mg-50 mg Tab RxNorm: 3108 18 1 Tablet(s) PO QD No Start Date 02/08/2010 Inactive Alprazolam 0.5 mg Tab RxNorm: 167324 2 Tablet(s) PO QD prn No Start Date 03/07/2010 Inactive Bystolic 20 mg tablet RxNorm: 837856 1 Tablet(s) PO QAM No Start Da te 08/17/2015 Inactive ketorolac 10 mg tablet RxNorm: 586333 1 Tablet(s) PO QID prn he adache No Start Date 07/17/2012 Inactive acyclovir 800 mg Tab RxNorm: 235928 1 Tablet(s) PO BID No Start Date 03/18/2012 Inactive duloxetine 60 mg capsule,delayed release RxNorm: 954389 1 Capsu le(s) PO QD No Start Date 09/29/2015 Inactive Norvasc 5 mg tablet RxNorm: 695092 1 Tablet(s) PO QHS No Start Date 1 10/18/2014 Inactive promethazine 25 mg tablet RxNorm: 985441 1 Tablet(s) PO Q8H use sparingly No Start Date 07/22/2013 Inactive alprazolam 0.5 mg tablet RxNorm: 329956 3 Tablet(s) PO QHS No Start Date 06/06/2015 Inactive Lunesta 3 mg tablet RxNorm: 632606 1 Tablet(s) PO QHS No Start Date 0 09/20/2017 Inactive hydrocodone-acetaminophen 10 mg-325 mg Tab RxNorm: 1325347 1-2 Tablet(s) PO TID as needed for pain No Start Date 12/10/2011 Inactive Coricidin HBP Cough & Cold 4 mg-30 mg Tab RxNorm: 9656391 Tablet (s) PO PRN No Start Date 10/09/2010 Inactive Bactroban 2 % Ointment RxNorm: 387755 Application TOP QID to so res No Start Date 02/22/2012 Inactive Flonase 50 mcg/actuation Nasal [place] RxNorm: 105638 2 [place] QHS No Start Date 03/03/2014 Inactive Medication Administered No Medication Administered data Immunizations Vaccine Codes Date Status Tetanus, Diptheria, Pertussis CVX: 115 02/27/2014 Results Observation Observation Code Item Item Code Result Date S ervice Location GFR CALC [id number] GFR Non Afr Amr >60 mL/min 02/12/2020 Un known GFR CALC [id number] GFR Afr Amr >60 mL/min 02/12/2020 Unknow n [facility] 68573 AST 27 U/L 2019 Unknown [facility] 59060 ALT 16 U/L 2019 Unknown [facility] 63133 BUN 22 mg/dL 2019 Unknown [facility] 86282 ALBUMIN 3.9 g/dL 2019 Unknown [facility] 88112 CHLORIDE 98 mmol/L 2019 Unknown COMPREHENSIVE METABOLIC 58442 Bili Total 0.5 mg/dL 02/11 Unknown [facility]PREHENSIVE METABOLIC 31126 ALK PHOS 72 U/L 2019 Unknown [facility] 36758 SODIUM 137 mmol/L 02/11 Unknown [facility] MET[facility] 86065 CREATININE 0.96 mg/dL 12/2019 Unknown [facility] 76921 CALCIUM 9.1 mg/dL 2019 Unknown [facility] 39288 POTASSIUM 4.6 mmol/L 02/11 Unknown [facility]HENS[facility] MET[facility]OL[facility] 34406 Total Protein 6.5 g/dL Unknown [facility] 68391 Glucose 129 mg/dL 2019 Unknown [facility] MET[facility] 00043 Bicarbonate 31 mmol/L 12/2019 Unknown COMPREHENSIVE METABOLIC 42161 AGAP 8 mmol/L 2019 Unknown COMPREHENSIVE METABOLIC 31432 AST 15 U/L 2019 Unknown COMPREHENSIVE METABOLIC 72800 ALT 13 U/L 2019 Unknown COMPREHENSIVE METABOLIC 34515 BUN 12 mg/dL 2019 Unknown COMPREHENSIVE METABOLIC 17900 ALBUMIN 3.9 g/dL 2019 Unknown COMPREHENSIVE METABOLIC 26334 CHLORIDE 97 mmol/L 2019 Unknown COMPREHENSIVE METABOLIC 29377 Bili Total 0.4 mg/dL 09/29 Unknown COMPREHENSIVE METABOLIC 73964 ALK PHOS 130 U/L 2019 Unknown COMPREHENSIVE METABOLIC 53047 SODIUM 136 mmol/L 09/29 Unknown COMPREHENSIVE METABOLIC 62018 CREATININE 0.92 mg/dL 09/11 Unknown COMPREHENSIVE METABOLIC 49178 CALCIUM 9.1 mg/dL 2019 Unknown COMPREHENSIVE METABOLIC 32770 POTASSIUM 4.4 mmol/L 09/29 Unknown COMPREHENSIVE METABOLIC 96357 Total Protein 6.2 g/dL Unknown COMPREHENSIVE METABOLIC 46464 Glucose 391 mg/dL 2019 Unknown COMPREHENSIVE METABOLIC 95950 Bicarbonate 30 mmol/L 09/11 Unknown COMPREHENSIVE METABOLIC 62090 AGAP 9 mmol/L 2019 Unknown MEAN GLUC 5714387 Calc Mean Gluc 332 mg/dL 09/29/2019 Unkn own COMPLETE BLOOD COUNT [id number] WBC 7.0 10e9/L 09/29/19 Unknown COMPLETE BLOOD COUNT [id number] RBC 4.69 10e12/L 2019 Unknown COMPLETE BLOOD COUNT [id number] HEMOGLOBIN 14.6 g/dL 09/29/19 Unknown COMPLETE BLOOD COUNT [id number] HEMATOCRIT 45.2 % 09/29/19 Unknown COMPLETE BLOOD COUNT [id number] MCV 96.4 fL 0 Unknown COMPLETE BLOOD COUNT [id number] MCH 31.1 pg 0 Unknown COMPLETE BLOOD COUNT [id number] MCHC 32.3 g/dL 0 Unknown COMPLETE BLOOD COUNT [id number] PLATELET COUNT 209 10e9/L Unknown COMPLETE BLOOD COUNT [id number] Mean Plt Volume 9.8 fL Unknown COMPLETE BLOOD COUNT [id number] Neut Auto 48.1 % 0 Unknown COMPLETE BLOOD COUNT [id number] Lymph Auto 36.5 % 09/29/19 Unknown COMPLETE BLOOD COUNT [id number] Rooks Auto 8.6 % 0 Unknown COMPLETE BLOOD COUNT [id number] RDW 13.4 % 0 Unknown COMPLETE BLOOD COUNT [id number] Eos Auto 6.5 % 0 Unknown COMPLETE BLOOD COUNT [id number] Baso Auto 0.3 % 0 Unknown COMPLETE BLOOD COUNT [id number] Neutrophil Abs 3.37 10e9/L Unknown COMPLETE BLOOD COUNT [id number] Lymphocyte Abs 2.56 10e9/L Unknown COMPLETE BLOOD COUNT [id number] Monocyte Abs 0.60 10e9/L 09/11 Unknown COMPLETE BLOOD COUNT [id number] Eosinophil Abs 0.46 10e9/L Unknown COMPLETE BLOOD COUNT [id number] RDW-SD 45.9 fL 0 Unknown COMPLETE BLOOD COUNT [id number] Basophil Abs 0.02 10e9/L 09/11 Unknown LIPID GROUP 68733 Cholesterol 248 mg/dL 09/29/2019 Unkno wn LIPID GROUP 26244 Triglyceride 898 mg/dL 09/29/2019 Unkn own LIPID GROUP 90974 HDL CHOLESTEROL 41 mg/dL 09/29/2019 U nknown LIPID GROUP 31258 Chol/HDL Ratio 6.05 ratio 09/29/2019 U nknown LIP[facility] GROUP 33412 NON-HDL Chol 207 mg/dL 09/29/2019 Unkn own LIPID GROUP 71821 LDL Cholesterol N/A Trig >400 020 Unknown GLYCOSYLATED HEMOGLOBIN TEST 84016 Hgb A1c 26175-8 13.2 % 0 09/29/2019 Unknown FREE T4 08392 T4 Free 0.75 ng/dL 09/29/2019 Unknown GFR CALC 6980709 GFR Non Afr Amr >60 mL/min 09/29/2019 Un known GFR CALC 4561122 GFR Afr Amr >60 mL/min 09/29/2019 Unknow n THYROID STIMULATING HORMONE 42251 TSH 4.245 uIU/mL 09/29/2019 Unknown COMPLETE BLOOD COUNT [id number] WBC 10.7 10e9/L 018 Unknown COMPLETE BLOOD COUNT [id number] RBC 4.59 10e12/L 2017 Unknown COMPLETE BLOOD COUNT [id number] HEMOGLOBIN 14.8 g/dL 12/11/19 18 Unknown COMPLETE BLOOD COUNT [id number] HEMATOCRIT 44.9 % 12/11/19 18 Unknown COMPLETE BLOOD COUNT [id number] MCV 97.8 fL 8 Unknown COMPLETE BLOOD COUNT 7709254 MCH 32.2 pg 8 Unknown COMPLETE BLOOD COUNT [id number] MCHC 33.0 g/dL 8 Unknown COMPLETE BLOOD COUNT 8957354 PLATELET COUNT 261 10e9/L 10/2017 Unknown COMPLETE BLOOD COUNT 0778409 Mean Plt Volume 9.5 fL 10/2017 Unknown COMPLETE BLOOD COUNT 9466016 Neut Auto 59.9 % 8 Unknown COMPLETE BLOOD COUNT [id number] Lymph Auto 27.4 % 12/11/19 18 Unknown COMPLETE BLOOD COUNT 4468562 Rooks Auto 8.2 % 8 Unknown COMPLETE BLOOD COUNT 2589107 RDW 13.3 % 8 Unknown COMPLETE BLOOD COUNT [id number] Eos Auto 4.1 % 8 Unknown COMPLETE BLOOD COUNT [id number] Baso Auto 0.4 % 8 Unknown COMPLETE BLOOD COUNT [id number] Neutrophil Abs 6.41 10e9/L Unknown COMPLETE BLOOD COUNT [id number] Lymphocyte Abs 2.93 10e9/L Unknown COMPLETE BLOOD COUNT [id number] Monocyte Abs 0.88 10e9/L 10/2017 Unknown COMPLETE BLOOD COUNT [id number] Eosinophil Abs 0.44 10e9/L Unknown COMPLETE BLOOD COUNT [id number] RDW-SD 46.2 fL 8 Unknown COMPLETE BLOOD COUNT [id number] Basophil Abs 0.04 10e9/L 10/2017 Unknown THYROID STIMULATING HORMONE 72515 TSH 4.015 uIU/mL 12/10/2017 Unknown COMPREHENSIVE METABOLIC 81198 AST 25 U/L 2017 Unknown COMPREHENSIVE METABOLIC 13308 ALT 17 U/L 2017 Unknown COMPREHENSIVE METABOLIC 21161 BUN 19 mg/dL 2017 Unknown COMPREHENSIVE METABOLIC 41306 ALBUMIN 4.0 g/dL 2017 Unknown COMPREHENSIVE METABOLIC 20236 CHLORIDE 91 mmol/L 2017 Unknown COMPREHENSIVE METABOLIC 79474 Bili Total 0.5 mg/dL 12/10 Unknown COMPREHENSIVE METABOLIC 40829 ALK PHOS 75 U/L 2017 Unknown COMPREHENSIVE METABOLIC 67269 SODIUM 136 mmol/L 12/10 Unknown COMPREHENSIVE METABOLIC 80783 CREATININE 1.05 mg/dL 10/2017 Unknown COMPREHENSIVE METABOLIC 57057 CALCIUM 8.9 mg/dL 2017 Unknown COMPREHENSIVE METABOLIC 08677 POTASSIUM 3.4 mmol/L 12/10 Unknown COMPREHENSIVE METABOLIC 18763 Total Protein 6.5 g/dL Unknown COMPREHENSIVE METABOLIC 36024 Glucose 138 mg/dL 2017 Unknown COMPREHENSIVE METABOLIC 54870 Bicarbonate 35 mmol/L 10/2017 Unknown COMPREHENSIVE METABOLIC 82363 AGAP 10 mmol/L 2017 Unknown MEAN GLUC 1268116 Calc Mean Gluc 171 mg/dL 12/10/2017 Unkn own LIPID GROUP 28224 Cholesterol 204 mg/dL 12/10/2017 Unkno wn LIPID GROUP 95308 Triglyceride 411 mg/dL 12/10/2017 Unkn own LIP[facility] GROUP 93592 HDL CHOLESTEROL 50 mg/dL 12/10/2017 U nknown LIP[facility] GROUP 04840 Chol/HDL Ratio 4.08 ratio 12/10/2017 U nknown LIP[facility] GROUP 66165 NON-HDL Chol 154 mg/dL 12/10/2017 Unkn own LIP[facility] GROUP 49393 LDL Cholesterol N/A Trig >400 018 Unknown GLYCOSYLATED HEMOGLOBIN TEST 62228 Hgb A1c 55828-8 7.6 % 0 12/10/2017 Unknown FREE T4 55403 T4 Free 1.40 ng/dL 12/10/2017 Unknown GFR CALC 2728494 GFR Non Afr Amr 55 mL/min 12/10/2017 Unk nown GFR CALC 5526497 GFR Afr Amr >60 mL/min 12/10/2017 Unknow n GFR CALC 5642063 GFR Non Afr Amr 48 mL/min 06/28/2017 Unk nown GFR CALC 7373601 GFR Afr Amr 59 mL/min 06/28/2017 Unknown COMPREHENSIVE METABOLIC 94913 AST 32 U/L 2016 Unknown COMPREHENSIVE METABOLIC 22081 ALT 22 U/L 2016 Unknown COMPREHENSIVE METABOLIC 90986 BUN 23 mg/dL 2016 Unknown COMPREHENSIVE METABOLIC 17111 ALBUMIN 4.7 g/dL 2016 Unknown COMPREHENSIVE METABOLIC 94066 CHLORIDE 89 mmol/L 2016 Unknown COMPREHENSIVE METABOLIC 39350 Bili Total 0.5 mg/dL 06/28 Unknown COMPREHENSIVE METABOLIC 84900 ALK PHOS 90 U/L 2016 Unknown COMPREHENSIVE METABOLIC 35379 SODIUM 135 mmol/L 06/28 Unknown COMPREHENSIVE METABOLIC 43429 CREATININE 1.18 mg/dL 06/10 Unknown COMPREHENSIVE METABOLIC 59162 CALCIUM 9.7 mg/dL 2016 Unknown COMPREHENSIVE METABOLIC 22866 POTASSIUM 3.5 mmol/L 06/28 Unknown COMPREHENSIVE METABOLIC 67012 Total Protein 7.7 g/dL Unknown COMPREHENSIVE METABOLIC 74698 Glucose 129 mg/dL 2016 Unknown COMPREHENSIVE METABOLIC 77814 Bicarbonate 34 mmol/L 06/10 Unknown COMPREHENSIVE METABOLIC 68420 AGAP 12 mmol/L 2016 Unknown LIPID GROUP 07420 HDL TEST 64 MG/DL 08/27/2014 Unknown LIPID GROUP 02114 TRIG 222 MG/DL 08/27/2014 Unknown LIP[facility] GROUP 56885 TEST LDL 209 MG/DL 08/27/2014 Unknown LIPID GROUP 82779 CHOL 317 MG/DL 08/27/2014 Unknown LIPID GROUP 84705 RCHOL/HDL 4.95 RATIO 08/27/2014 Unknow n LIPID GROUP 85289 NON-HDL CH 253 MG/DL 08/27/2014 Unknow n GFR CALC 8019248 GFR AA >60 ML/MIN 08/27/2014 Unknown GFR CALC 0362160 GFR NON-AA >60 ML/MIN 08/27/2014 Unknown COMPLETE BLOOD COUNT 7621863 WBC 7.0 10e9/L 08/27/20 14 Unknown COMPLETE BLOOD COUNT [id number] RBC 4.98 10e12/L 2013 Unknown COMPLETE BLOOD COUNT 3031594 HGB 15.6 g/dL 4 Unknown COMPLETE BLOOD COUNT 6151664 HCT DET 46.5 % 4 Unknown COMPLETE BLOOD COUNT 1628942 MCV 93.4 fL 4 Unknown COMPLETE BLOOD COUNT 8150924 MCH 31.3 pg 4 Unknown COMPLETE BLOOD COUNT 2548398 MCHC 33.5 g/dL 4 Unknown COMPLETE BLOOD COUNT 5441073 PLT 309 10e9/L 08/27/20 14 Unknown COMPLETE BLOOD COUNT 2577809 MPV 9.6 fL 4 Unknown COMPLETE BLOOD COUNT 8914058 CADEN % 57.2 % 4 Unknown COMPLETE BLOOD COUNT 3769065 LY % 33.2 % 4 Unknown COMPLETE BLOOD COUNT [id number] MON % 7.3 % 4 Unknown COMPLETE BLOOD COUNT 6669137 EOS % 2.0 % 4 Unknown COMPLETE BLOOD COUNT 2851201 BASO % 0.3 % 4 Unknown COMPLETE BLOOD COUNT 1070763 RDW 13.7 % 4 Unknown COMPLETE BLOOD COUNT [id number] ABS CADEN 4.00 10e9/L 014 Unknown COMPLETE BLOOD COUNT [id number] ABS LYMPH 2.32 10e9/L 014 Unknown COMPLETE BLOOD COUNT [id number] ABS MONO 0.51 10e9/L 014 Unknown COMPLETE BLOOD COUNT [id number] ABS EOS 0.14 10e9/L 014 Unknown COMPLETE BLOOD COUNT [id number] ABS BASO 0.02 10e9/L 014 Unknown COMPLETE BLOOD COUNT [id number] RDW-SD 45.1 fL 4 Unknown COMPREHENSIVE METABOLIC 22344 AST 13 U/L 2013 Unknown COMPREHENSIVE METABOLIC 15181 ALT 11 IU/L 2013 Unknown COMPREHENSIVE METABOLIC 35341 BUN 23 MG/DL 2013 Unknown COMPREHENSIVE METABOLIC 74969 ALBUMIN 4.4 GM/DL 2013 Unknown COMPREHENSIVE METABOLIC 50665 CHLORIDE 99 MMOL/L 2013 Unknown COMPREHENSIVE METABOLIC 87906 BILI TOT 0.5 MG/DL 2013 Unknown COMPREHENSIVE METABOLIC 73685 ALK PHOS 56 U/L 2013 Unknown COMPREHENSIVE METABOLIC 94927 SODIUM 138 MMOL/L 08/27 Unknown COMPREHENSIVE METABOLIC 64628 CREATININE 0.95 MG/DL 08/10 Unknown COMPREHENSIVE METABOLIC 20950 CALCIUM 9.8 MG/DL 2013 Unknown COMPREHENSIVE METABOLIC 01275 POTASSIUM 3.5 MMOL/L 08/27 Unknown COMPREHENSIVE METABOLIC 36475 PROT TOT 6.8 GM/DL 2013 Unknown COMPREHENSIVE METABOLIC 14250 Glucose 90 MG/DL 2013 Unknown COMPREHENSIVE METABOLIC 02457 BICARB 34 MMOL/L 2013 Unknown COMPREHENSIVE METABOLIC 77728 ANION GAP 5 MEQ/L 2013 Unknown LIPASE 93977 LIPASE 11 IU/L 07/21/2014 Unknown AMYLASE 35076 AMYLASE 39 IU/L 07/21/2014 Unknown HEMOGLOBIN A1C (GLYCOSYLATED) 4537894 A1C HPLC 38064-0 6.2 % 03/05/2013 Unknown THYROID STIMULATING HORMONE 45565 TSH 6.986 uIU/ML 03/05/2013 Unknown COMPLETE BLOOD COUNT [id number] WBC 12.7 10e9/L 013 Unknown COMPLETE BLOOD COUNT [id number] RBC 4.53 10e12/L 2012 Unknown COMPLETE BLOOD COUNT 4994793 HGB 14.7 g/dL 3 Unknown COMPLETE BLOOD COUNT 0070463 HCT DET 43.1 % 3 Unknown COMPLETE BLOOD COUNT 3405347 MCV 95.1 fL 3 Unknown COMPLETE BLOOD COUNT 5811298 MCH 32.5 pg 3 Unknown COMPLETE BLOOD COUNT 6832537 MCHC 34.1 g/dL 3 Unknown COMPLETE BLOOD COUNT 9269565 PLT 346 10e9/L 03/05/20 13 Unknown COMPLETE BLOOD COUNT 6349218 MPV 9.5 fL 3 Unknown COMPLETE BLOOD COUNT 3877614 CADEN % 67.6 % 3 Unknown COMPLETE BLOOD COUNT 5051685 LY % 22.1 % 3 Unknown COMPLETE BLOOD COUNT 7566296 MON % 6.6 % 3 Unknown COMPLETE BLOOD COUNT 2457039 EOS % 3.3 % 3 Unknown COMPLETE BLOOD COUNT 3434566 BASO % 0.4 % 3 Unknown COMPLETE BLOOD COUNT 9367346 RDW 14.0 % 3 Unknown COMPLETE BLOOD COUNT [id number] ABS CADEN 8.59 10e9/L 013 Unknown COMPLETE BLOOD COUNT 4367966 ABS LYMPH 2.81 10e9/L 013 Unknown COMPLETE BLOOD COUNT [id number] ABS MONO 0.84 10e9/L 013 Unknown COMPLETE BLOOD COUNT [id number] ABS EOS 0.42 10e9/L 013 Unknown COMPLETE BLOOD COUNT [id number] ABS BASO 0.05 10e9/L 013 Unknown COMPLETE BLOOD COUNT 9043564 RDW-SD 46.0 fL 3 Unknown FREE T4 05635 FREE T4 1.14 NG/DL 03/05/2013 Unknown COMPREHENSIVE METABOLIC 94973 AST 17 U/L 2012 Unknown COMPREHENSIVE METABOLIC 40283 ALT 12 IU/L 2012 Unknown COMPREHENSIVE METABOLIC 02334 BUN 24 MG/DL 2012 Unknown COMPREHENSIVE METABOLIC 33302 ALBUMIN 4.2 GM/DL 2012 Unknown COMPREHENSIVE METABOLIC 20177 CHLORIDE 93 MMOL/L 2012 Unknown COMPREHENSIVE METABOLIC 13583 BILI TOT 0.5 MG/DL 2012 Unknown COMPREHENSIVE METABOLIC 34932 ALK PHOS 75 U/L 2012 Unknown COMPREHENSIVE METABOLIC 93542 SODIUM 141 MMOL/L 03/05 Unknown COMPREHENSIVE METABOLIC 55313 CREATININE 1.36 MG/DL 02/09 Unknown COMPREHENSIVE METABOLIC 28421 CALCIUM 9.2 MG/DL 2012 Unknown COMPREHENSIVE METABOLIC 86880 POTASSIUM 3.1 MMOL/L 03/05 Unknown COMPREHENSIVE METABOLIC 04486 PROT TOT 6.9 GM/DL 2012 Unknown COMPREHENSIVE METABOLIC 90268 Glucose 123 MG/DL 2012 Unknown COMPREHENSIVE METABOLIC 29492 BICARB 36 MMOL/L 2012 Unknown COMPREHENSIVE METABOLIC 04073 ANION GAP 12 MEQ/L 2012 Unknown GFR CALC 4868756 GFR AA 51.0L ML/MIN 03/05/2013 Unknow n GFR CALC 1858424 GFR NON-AA 42.0L ML/MIN 03/05/2013 Unkno wn COMPREHENSIVE METABOLIC 62241 AST 14 U/L 2012 Unknown COMPREHENSIVE METABOLIC 22395 ALT 11 IU/L 2012 Unknown COMPREHENSIVE METABOLIC 23054 BUN 16 MG/DL 2012 Unknown COMPREHENSIVE METABOLIC 83331 ALBUMIN 4.2 GM/DL 2012 Unknown COMPREHENSIVE METABOLIC 51065 CHLORIDE 98 MMOL/L 2012 Unknown COMPREHENSIVE METABOLIC 99353 BILI TOT 0.4 MG/DL 2012 Unknown COMPREHENSIVE METABOLIC 94639 ALK PHOS 77 U/L 2012 Unknown COMPREHENSIVE METABOLIC 11343 SODIUM 139 MMOL/L 09/25 Unknown COMPREHENSIVE METABOLIC 61353 CREATININE 0.86 MG/DL 09/10 Unknown COMPREHENSIVE METABOLIC 04259 CALCIUM 9.5 MG/DL 2012 Unknown COMPREHENSIVE METABOLIC 87943 POTASSIUM 3.8 MMOL/L 09/25 Unknown COMPREHENSIVE METABOLIC 34578 PROT TOT 6.8 GM/DL 2012 Unknown COMPREHENSIVE METABOLIC 55477 Glucose 91 MG/DL 2012 Unknown COMPREHENSIVE METABOLIC 96744 BICARB 32 MMOL/L 2012 Unknown COMPREHENSIVE METABOLIC 10057 ANION GAP 9 MEQ/L 2012 Unknown FREE T4 19743 FREE T4 0.98 NG/DL 09/25/2012 Unknown THYROID STIMULATING HORMONE 63621 TSH 1.736 uIU/ML 09/25/2012 Unknown C-REACTIVE PROTEIN (CRP) QUANT 14378 CRP 2.3 MG/DL 09/25/2012 Unknown COMPLETE BLOOD COUNT [id number] WBC 11.9 10e9/L 013 Unknown COMPLETE BLOOD COUNT 8877347 RBC 4.87 10e12/L 2012 Unknown COMPLETE BLOOD COUNT 5469515 HGB 15.1 g/dL 3 Unknown COMPLETE BLOOD COUNT [id number] HCT DET 44.8 % 3 Unknown COMPLETE BLOOD COUNT 8178486 MCV 92.0 fL 3 Unknown COMPLETE BLOOD COUNT 7766338 MCH 31.0 pg 3 Unknown COMPLETE BLOOD COUNT 3122509 MCHC 33.7 g/dL 3 Unknown COMPLETE BLOOD COUNT [id number] PLT 343 10e9/L 09/25/19 13 Unknown COMPLETE BLOOD COUNT [id number] MPV 9.0 fL 3 Unknown COMPLETE BLOOD COUNT [id number] CADEN % 68.2 % 3 Unknown COMPLETE BLOOD COUNT [id number] LY % 22.4 % 3 Unknown COMPLETE BLOOD COUNT [id number] MON % 6.4 % 3 Unknown COMPLETE BLOOD COUNT [id number] EOS % 2.7 % 3 Unknown COMPLETE BLOOD COUNT [id number] BASO % 0.3 % 3 Unknown COMPLETE BLOOD COUNT [id number] RDW 13.8 % 3 Unknown COMPLETE BLOOD COUNT [id number] ABS CADEN 8.12 10e9/L 013 Unknown COMPLETE BLOOD COUNT [id number] ABS LYMPH 2.67 10e9/L 013 Unknown COMPLETE BLOOD COUNT [id number] ABS MONO 0.76 10e9/L 013 Unknown COMPLETE BLOOD COUNT [id number] ABS EOS 0.32 10e9/L 013 Unknown COMPLETE BLOOD COUNT [id number] ABS BASO 0.04 10e9/L 013 Unknown COMPLETE BLOOD COUNT [id number] RDW-SD 45.6 fL 3 Unknown GFR CALC [id number] GFR AA >60 ML/MIN 09/25/2012 Unknown GFR CALC [id number] GFR NON-AA >60 ML/MIN 09/25/2012 Unknown ERYTHROCYTE SEDIMENTATION RATE [id number] ESR 19 MM/HR 05/06/2012 Unknown VITAMIN B 12 FOLIC ACID [id number] VIT B 12 922 PG/ML 04/11 Unknown VITAMIN B 12 FOLIC ACID [id number] FOLIC ACID 13.6 NG/ML Unknown URIC ACID [id number] URIC ACID 7.8 MG/DL 05/06/2012 Unknown COMPLETE BLOOD COUNT [id number] WBC 11.9 10e9/L 012 Unknown COMPLETE BLOOD COUNT [id number] RBC 5.30 10e12/L 2011 Unknown COMPLETE BLOOD COUNT 57642 HGB 16.6 g/dL 2 Unknown COMPLETE BLOOD COUNT 39147 HCT DET 47.2 % 2 Unknown COMPLETE BLOOD COUNT 03581 MCV 89.1 fL 2 Unknown COMPLETE BLOOD COUNT 76739 MCH 31.3 pg 2 Unknown COMPLETE BLOOD COUNT 40170 MCHC 35.2 g/dL 2 Unknown COMPLETE BLOOD COUNT 76336 PLT 362 10e9/L 05/06/20 12 Unknown COMPLETE BLOOD COUNT 45884 MPV 9.4 fL 2 Unknown COMPLETE BLOOD COUNT 20963 CADEN % 68.2 % 2 Unknown COMPLETE BLOOD COUNT 16320 LY % 22.0 % 2 Unknown COMPLETE BLOOD COUNT 77802 MON % 6.9 % 2 Unknown COMPLETE BLOOD COUNT 43122 EOS % 2.6 % 2 Unknown COMPLETE BLOOD COUNT 76727 BASO % 0.3 % 2 Unknown COMPLETE BLOOD COUNT 19498 RDW 12.8 % 2 Unknown COMPLETE BLOOD COUNT 70733 ABS CADEN 8.12 10e9/L 012 Unknown COMPLETE BLOOD COUNT 89190 ABS LYMPH 2.62 10e9/L 012 Unknown COMPLETE BLOOD COUNT 72559 ABS MONO 0.82 10e9/L 012 Unknown COMPLETE BLOOD COUNT 34842 ABS EOS 0.31 10e9/L 012 Unknown COMPLETE BLOOD COUNT 25744 ABS BASO 0.04 10e9/L 012 Unknown COMPLETE BLOOD COUNT 11945 RDW-SD 41.5 fL 2 Unknown GFR CALC [id number] GFR AA >60 ML/MIN 05/06/2012 Unknown GFR CALC [id number] GFR NON-AA 58.0L ML/MIN 05/06/2012 Unkno wn FREE T4 27001 FREE T4 1.15 NG/DL 05/06/2012 Unknown THYROID STIMULATING HORMONE 66645 TSH 1.568 uIU/ML 05/06/2012 Unknown COMPREHENSIVE METABOLIC 87557 AST 20 U/L 2011 Unknown COMPREHENSIVE METABOLIC 51467 ALT 12 IU/L 2011 Unknown COMPREHENSIVE METABOLIC 82692 BUN 20 MG/DL 2011 Unknown COMPREHENSIVE METABOLIC 70857 ALBUMIN 4.5 GM/DL 2011 Unknown COMPREHENSIVE METABOLIC 57979 CHLORIDE 91 MMOL/L 2011 Unknown COMPREHENSIVE METABOLIC 20546 BILI TOT 0.4 MG/DL 2011 Unknown COMPREHENSIVE METABOLIC 39152 ALK PHOS 73 U/L 2011 Unknown COMPREHENSIVE METABOLIC 60356 SODIUM 139 MMOL/L 05/06 Unknown COMPREHENSIVE METABOLIC 56774 CREATININE 1.02 MG/DL 04/11 Unknown COMPREHENSIVE METABOLIC 64222 CALCIUM 9.7 MG/DL 2011 Unknown COMPREHENSIVE METABOLIC 08411 POTASSIUM 3.1 MMOL/L 05/06 Unknown COMPREHENSIVE METABOLIC 32367 PROT TOT 7.3 GM/DL 2011 Unknown COMPREHENSIVE METABOLIC 91057 Glucose 118 MG/DL 2011 Unknown COMPREHENSIVE METABOLIC 02950 BICARB 33 MMOL/L 2011 Unknown COMPREHENSIVE METABOLIC 18356 ANION GAP 15 MEQ/L 2011 Unknown Procedures Procedure Codes Date ROUTINE VENIPUNCTURE CPT-4: 73066 09/29/2019 URINALYSIS NONAUTO W/O SCOPE CPT-4: 55321 09/29/2019 COMPREHEN METABOLIC PANEL CPT-4: 54342 09/29/2019 LIPID PANEL CPT-4: 64717 09/29/2019 A1C HPLC CPT-4: 94687 09/29/2019 ASSAY OF FREE THYROXINE CPT-4: 32574 09/29/2019 ASSAY THYROID STIM HORMONE CPT-4: 39570 09/29/2019 COMPLETE CBC W/AUTO DIFF WBC CPT-4: 16251 09/29/2019 URINALYSIS NONAUTO W/O SCOPE CPT-4: 99727 09/30/2018 MICROALBUMIN QUANTITATIVE CPT-4: 48100 09/30/2018 CEFTRIAXONE SODIUM INJECTION CPT-4: J0696 06/19/2018 THER/PROPH/DIAG INJ SC/IM CPT-4: 19095 06/19/2018 CEFTRIAXONE SODIUM INJECTION CPT-4: J0696 06/17/2018 THER/PROPH/DIAG INJ SC/IM CPT-4: 53966 06/17/2018 THER/PROPH/DIAG INJ SC/IM CPT-4: 79785 05/16/2018 KETOROLAC TROMETHAMINE INJ CPT-4: J1885 05/16/2018 ONDANSETRON HCL INJECTION CPT-4: J2405 05/16/2018 THER/PROPH/DIAG INJ SC/IM CPT-4: 07199 05/16/2018 ROUTINE VENIPUNCTURE CPT-4: 72938 03/20/2018 COMPREHEN METABOLIC PANEL CPT-4: 69024 03/20/2018 DEXAMETHASONE SODIUM PHOS CPT-4: J1100 02/11/2018 THER/PROPH/DIAG INJ SC/IM CPT-4: 57731 02/11/2018 TRIAMCINOLONE ACET INJ NOS CPT-4: J3301 02/11/2018 CEFTRIAXONE SODIUM INJECTION CPT-4: J0696 02/01/2018 THER/PROPH/DIAG INJ SC/IM CPT-4: 38383 02/01/2018 CEFTRIAXONE SODIUM INJECTION CPT-4: J0696 01/30/2018 THER/PROPH/DIAG INJ SC/IM CPT-4: 11966 01/30/2018 ROUTINE VENIPUNCTURE CPT-4: 71742 12/10/2017 ASSAY OF FREE THYROXINE CPT-4: 36003 12/10/2017 ASSAY THYROID STIM HORMONE CPT-4: 27556 12/10/2017 COMPREHEN METABOLIC PANEL CPT-4: 68501 12/10/2017 COMPLETE CBC W/AUTO DIFF WBC CPT-4: 36292 12/10/2017 LIPID PANEL CPT-4: 26047 12/10/2017 A1C HPLC CPT-4: 52443 12/10/2017 CEFTRIAXONE SODIUM INJECTION CPT-4: J0696 12/10/2017 THER/PROPH/DIAG INJ SC/IM CPT-4: 99163 12/10/2017 CEFTRIAXONE SODIUM INJECTION CPT-4: J0696 12/07/2017 THER/PROPH/DIAG INJ SC/IM CPT-4: 08945 12/07/2017 DEXAMETHASONE SODIUM PHOS CPT-4: J1100 12/07/2017 THER/PROPH/DIAG INJ SC/IM CPT-4: 31606 12/07/2017 CEFTRIAXONE SODIUM INJECTION CPT-4: J0696 10/08/2017 THER/PROPH/DIAG INJ SC/IM CPT-4: 81803 10/08/2017 CEFTRIAXONE SODIUM INJECTION CPT-4: J0696 09/21/2017 THER/PROPH/DIAG INJ SC/IM CPT-4: 86524 09/21/2017 CEFTRIAXONE SODIUM INJECTION CPT-4: J0696 09/20/2017 THER/PROPH/DIAG INJ SC/IM CPT-4: 99517 09/20/2017 REMOVAL OF NAIL PLATE CPT-4: 26706 08/29/2017 THER/PROPH/DIAG INJ SC/IM CPT-4: 80446 08/29/2017 TRIAMCINOLONE ACET INJ NOS CPT-4: J3301 08/29/2017 CEFTRIAXONE SODIUM INJECTION CPT-4: J0696 08/29/2017 THER/PROPH/DIAG INJ SC/IM CPT-4: 46590 08/29/2017 DESTRUCT PREMALG LESION (Cryosurgery) CPT-4: 16439 ROUTINE VENIPUNCTURE CPT-4: 07418 06/27/2017 ASSAY OF FREE THYROXINE CPT-4: 60386 06/27/2017 ASSAY THYROID STIM HORMONE CPT-4: 26875 06/27/2017 COMPREHEN METABOLIC PANEL CPT-4: 22441 06/27/2017 COMPLETE CBC W/AUTO DIFF WBC CPT-4: 76712 06/27/2017 EXC TR-EXT B9+REECE 0.5 CM< CPT-4: 16690 01/24/2017 THER/PROPH/DIAG INJ SC/IM CPT-4: 96537 08/02/2016 DEXAMETHASONE SODIUM PHOS CPT-4: J1100 08/02/2016 DESTRUCT PREMALG LESION (Cryosurgery) CPT-4: 34213 EXC TR-EXT B9+REECE 0.5 CM< CPT-4: 61665 08/01/2016 AEROBIC WOUND CULTURE & STN CPT-4: 99944 07/06/2016 CEFTRIAXONE SODIUM INJECTION CPT-4: J0696 05/25/2016 THER/PROPH/DIAG INJ SC/IM CPT-4: 10395 05/25/2016 THER/PROPH/DIAG INJ SC/IM CPT-4: 42373 04/26/2016 DEXAMETHASONE SODIUM PHOS CPT-4: J1100 04/26/2016 CEFTRIAXONE SODIUM INJECTION CPT-4: J0696 04/26/2016 THER/PROPH/DIAG INJ SC/IM CPT-4: 47728 04/26/2016 THER/PROPH/DIAG INJ SC/IM CPT-4: 47548 02/09/2016 TRIAMCINOLONE ACET INJ NOS CPT-4: J3301 02/09/2016 URINALYSIS NONAUTO W/O SCOPE CPT-4: 18707 01/24/2016 URINE CULTURE/ COLONY COUNT CPT-4: 05607 01/24/2016 THER/PROPH/DIAG INJ SC/IM CPT-4: 77884 12/08/2015 TRIAMCINOLONE ACET INJ NOS CPT-4: J3301 12/08/2015 THER/PROPH/DIAG INJ SC/IM CPT-4: 91563 10/07/2015 TRIAMCINOLONE ACET INJ NOS CPT-4: J3301 10/07/2015 DESTRUCT PREMALG LESION (Cryosurgery) CPT-4: 50835 THER/PROPH/DIAG INJ SC/IM CPT-4: 11954 03/16/2015 METHYLPREDNISOLONE 40 MG INJ CPT-4: J1030 03/16/2015 DESTRUCT PREMALG LESION (Cryosurgery) CPT-4: 39297 THER/PROPH/DIAG INJ SC/IM CPT-4: 05345 09/11/2014 METHYLPREDNISOLONE 40 MG INJ CPT-4: J1030 09/11/2014 TRIAMCINOLONE ACET INJ NOS CPT-4: J3301 09/11/2014 CEFTRIAXONE SODIUM INJECTION CPT-4: J0696 09/11/2014 THER/PROPH/DIAG INJ SC/IM CPT-4: 49768 09/11/2014 ROUTINE VENIPUNCTURE CPT-4: 68421 08/27/2014 COMPREHEN METABOLIC PANEL CPT-4: 71121 08/27/2014 COMPLETE CBC W/AUTO DIFF WBC CPT-4: 28936 08/27/2014 LIPID PANEL CPT-4: 83543 08/27/2014 ROUTINE VENIPUNCTURE CPT-4: 57477 07/21/2014 ASSAY OF AMYLASE CPT-4: 06056 07/21/2014 ASSAY OF LIPASE CPT-4: 59277 07/21/2014 THER/PROPH/DIAG INJ SC/IM CPT-4: 68720 07/15/2014 TRIAMCINOLONE ACET INJ NOS CPT-4: J3301 07/15/2014 ROUTINE VENIPUNCTURE CPT-4: 41026 05/14/2014 ASSAY OF FREE THYROXINE CPT-4: 75716 05/14/2014 ASSAY THYROID STIM HORMONE CPT-4: 23443 05/14/2014 COMPREHEN METABOLIC PANEL CPT-4: 39262 05/14/2014 COMPLETE CBC W/AUTO DIFF WBC CPT-4: 31216 05/14/2014 LIPID PANEL CPT-4: 30806 05/14/2014 CEFTRIAXONE SODIUM INJECTION CPT-4: J0696 04/21/2014 THER/PROPH/DIAG INJ SC/IM CPT-4: 75056 04/21/2014 THER/PROPH/DIAG INJ SC/IM CPT-4: 42042 04/21/2014 TRIAMCINOLONE ACET INJ NOS CPT-4: J3301 04/21/2014 THER/PROPH/DIAG INJ SC/IM CPT-4: 48105 03/04/2014 METHYLPREDNISOLONE 40 MG INJ CPT-4: J1030 03/04/2014 TRIAMCINOLONE ACET INJ NOS CPT-4: J3301 03/04/2014 CEFTRIAXONE SODIUM INJECTION CPT-4: J0696 03/04/2014 THER/PROPH/DIAG INJ SC/IM CPT-4: 71957 03/04/2014 TDAP VACCINE 7 YRS/> IM CPT-4: 03242 02/27/2014 IMMUNIZATION ADMIN CPT-4: 43989 02/27/2014 DESTRUCT PREMALG LESION (Cryosurgery) CPT-4: 29232 DESTRUCT PREMALG LES 2-14 CPT-4: 14570 01/13/2014 THER/PROPH/DIAG INJ SC/IM CPT-4: 70473 10/21/2013 METHYLPREDNISOLONE 40 MG INJ CPT-4: J1030 10/21/2013 TRIAMCINOLONE ACET INJ NOS CPT-4: J3301 10/21/2013 CEFTRIAXONE SODIUM INJECTION CPT-4: J0696 08/27/2013 THER/PROPH/DIAG INJ SC/IM CPT-4: 92250 08/27/2013 THER/PROPH/DIAG INJ SC/IM CPT-4: 64952 08/27/2013 METHYLPREDNISOLONE 40 MG INJ CPT-4: J1030 08/27/2013 TRIAMCINOLONE ACET INJ NOS CPT-4: J3301 08/27/2013 THER/PROPH/DIAG INJ SC/IM CPT-4: 13206 06/23/2013 METHYLPREDNISOLONE 40 MG INJ CPT-4: J1030 06/23/2013 TRIAMCINOLONE ACET INJ NOS CPT-4: J3301 06/23/2013 THER/PROPH/DIAG INJ SC/IM CPT-4: 59446 05/26/2013 METHYLPREDNISOLONE 40 MG INJ CPT-4: J1030 05/26/2013 TRIAMCINOLONE ACET INJ NOS CPT-4: J3301 05/26/2013 ROUTINE VENIPUNCTURE CPT-4: 59078 03/05/2013 ASSAY OF FREE THYROXINE CPT-4: 66066 03/05/2013 ASSAY THYROID STIM HORMONE CPT-4: 83676 03/05/2013 COMPREHEN METABOLIC PANEL CPT-4: 42838 03/05/2013 COMPLETE CBC W/AUTO DIFF WBC CPT-4: 17084 03/05/2013 A1C GLYCOSYLATED HEMOGLOBIN TEST CPT-4: 35499 013 DRAIN/INJECT JOINT/BURSA CPT-4: 68112 12/04/2012 METHYLPREDNISOLONE 40 MG INJ CPT-4: J1030 12/04/2012 TRIAMCINOLONE ACET INJ NOS CPT-4: J3301 12/04/2012 CEFTRIAXONE SODIUM INJECTION CPT-4: J0696 11/21/2012 THER/PROPH/DIAG INJ SC/IM CPT-4: 97806 11/21/2012 THER/PROPH/DIAG INJ SC/IM CPT-4: 02520 10/14/2012 METHYLPREDNISOLONE 40 MG INJ CPT-4: J1030 10/14/2012 TRIAMCINOLONE ACET INJ NOS CPT-4: J3301 10/14/2012 URINALYSIS NONAUTO W/O SCOPE CPT-4: 14015 09/27/2012 ROUTINE VENIPUNCTURE CPT-4: 57951 09/25/2012 ASSAY OF FREE THYROXINE CPT-4: 25276 09/25/2012 ASSAY THYROID STIM HORMONE CPT-4: 12904 09/25/2012 COMPREHEN METABOLIC PANEL CPT-4: 96842 09/25/2012 COMPLETE CBC W/AUTO DIFF WBC CPT-4: 97301 09/25/2012 C-REACTIVE PROTEIN CPT-4: 89604 09/25/2012 THER/PROPH/DIAG INJ SC/IM CPT-4: 41682 08/29/2012 METHYLPREDNISOLONE 40 MG INJ CPT-4: J1030 08/29/2012 TRIAMCINOLONE ACET INJ NOS CPT-4: J3301 08/29/2012 DESTRUCT PREMALG LESION (Cryosurgery) CPT-4: 15990 THER/PROPH/DIAG INJ SC/IM CPT-4: 11852 05/06/2012 METHYLPREDNISOLONE 40 MG INJ CPT-4: J1030 05/06/2012 TRIAMCINOLONE ACET INJ NOS CPT-4: J3301 05/06/2012 VITAMIN B 12 FOLIC ACID CPT-4: 64831|98119 05/06/2012 RBC SED RATE AUTOMATED CPT-4: 98246 05/06/2012 ROUTINE VENIPUNCTURE CPT-4: 57509 05/06/2012 ASSAY OF FREE THYROXINE CPT-4: 01629 05/06/2012 ASSAY THYROID STIM HORMONE CPT-4: 86211 05/06/2012 COMPREHEN METABOLIC PANEL CPT-4: 35997 05/06/2012 COMPLETE CBC W/AUTO DIFF WBC CPT-4: 93693 05/06/2012 ASSAY OF BLOOD/URIC ACID CPT-4: 41393 05/06/2012 THER/PROPH/DIAG INJ SC/IM CPT-4: 85002 03/19/2012 KETOROLAC TROMETHAMINE INJ CPT-4: J1885 03/19/2012 KETOROLAC TROMETHAMINE INJ CPT-4: J1885 01/30/2012 THER/PROPH/DIAG INJ SC/IM CPT-4: 07684 01/30/2012 PROMETHAZINE HCL INJECTION CPT-4: J2550 01/30/2012 THER/PROPH/DIAG INJ SC/IM CPT-4: 85425 01/24/2012 METHYLPREDNISOLONE 40 MG INJ CPT-4: J1030 01/24/2012 TRIAMCINOLONE ACET INJ NOS CPT-4: J3301 01/24/2012 THER/PROPH/DIAG INJ SC/IM CPT-4: 83721 09/13/2011 KETOROLAC TROMETHAMINE INJ CPT-4: J1885 09/13/2011 THER/PROPH/DIAG INJ SC/IM CPT-4: 30486 09/13/2011 PROMETHAZINE HCL INJECTION CPT-4: J2550 09/13/2011 CEFTRIAXONE SODIUM INJECTION CPT-4: J0696 07/20/2011 THER/PROPH/DIAG INJ SC/IM CPT-4: 51813 07/20/2011 THER/PROPH/DIAG INJ SC/IM CPT-4: 74082 07/20/2011 METHYLPREDNISOLONE INJECTION CPT-4: J2930 07/20/2011 URINALYSIS NONAUTO W/O SCOPE CPT-4: 63204 05/09/2011 CEFTRIAXONE SODIUM INJECTION CPT-4: J0696 05/09/2011 THER/PROPH/DIAG INJ SC/IM CPT-4: 67399 05/09/2011 THER/PROPH/DIAG INJ SC/IM CPT-4: 35490 05/09/2011 PROMETHAZINE HCL INJECTION CPT-4: J2550 05/09/2011 HYDRATION IV INFUSION INIT CPT-4: 17109 05/09/2011 DESTRUCT PREMALG LESION (Cryosurgery) CPT-4: 79844 DESTRUCT PREMALG LES 2-14 CPT-4: 24598 07/19/2010 REMOVAL OF SKIN TAGS <W/15 CPT-4: 63937 05/30/2010 THER/PROPH/DIAG INJ SC/IM CPT-4: 15960 04/05/2010 CEFTRIAXONE SODIUM INJECTION CPT-4: J0696 04/05/2010 TRIAMCINOLONE ACET INJ NOS CPT-4: J3301 04/05/2010 METHYLPREDNISOLONE 40 MG INJ CPT-4: J1030 04/05/2010 THER/PROPH/DIAG INJ SC/IM CPT-4: 94818 04/05/2010 TRIAMCINOLONE ACET INJ NOS CPT-4: J3301 03/09/2010 METHYLPREDNISOLONE 40 MG INJ CPT-4: J1030 03/09/2010 THER/PROPH/DIAG INJ SC/IM CPT-4: 80907 03/09/2010 THER/PROPH/DIAG INJ SC/IM CPT-4: 60781 03/09/2010 CEFTRIAXONE SODIUM INJECTION CPT-4: J0696 03/09/2010 Vital Signs Date Vital 01/13/2020 Blood Pressure 1: 144/94 Code: 8480-6 [...] 1: 132/80 Code: 8480-6 BMI: 35.8 Code: 10014-7 Heart Rate 1: 88 bpm Height: 5'4" Respiratory Rate: 20 bpm SpO2: 95% Tempera ture: 36.9 (C) / 98.5 (F) Weight: 210 lbs 05/28/2019 Blood Pressure 1: 126/82 Code: 8480-6 BMI: 35.0 Code: 83772-8 Heart Rate 1: 88 bpm Height: 5'4" [...] 1: 128/90 Code: 8480-6 BMI: 37.2 Code: 27119-5 Heart Rate 1: 84 bpm Height: 5'4" Respiratory Rate: 20 bpm SpO2: 95% Tempera ture: 36.6 (C) / 97.8 (F) Weight: 217 lbs 08/27/2018 Blood Pressure 1: 128/88 Code: 8480-6 BMI: 38.3 Code: 07129-5 Heart Rate 1: 84 bpm Height: 5'4" [...] 1: 119/72 Code: 8480-6 BMI: 37.4 Code: 49128-2 Heart Rate 1: 82 bpm Height: 5'4" Respiratory Rate: 12 bpm SpO2: 94% Tempera ture: 35.2 (C) / 95.4 (F) Weight: 218 lbs 12/18/2017 Blood Pressure 1: 128/86 Code: 8480-6 BMI: 37.8 Code: 25979-5 Heart Rate 1: 84 bpm Height: 5'4" [...] 1: 128/82 Code: 8480-6 BMI: 35.5 Code: 66974-1 Heart Rate 1: 84 bpm Height: 5'4" [...] 1: 128/82 Code: 8480-6 BMI: 30.2 Code: 37393-9 Heart Rate 1: 80 bpm Height: 5'4" [...] 1: 128/86 Code: 8480-6 BMI: 32.8 Code: 15759-5 Heart Rate 1: 66 bpm Height: 5'4" Respiratory Rate: 18 bpm Temperature: 36 .3 (C) / 97.3 (F) Weight: 191 lbs 06/23/2013 Blood Pressure 1: 132/94 Code: 8480-6 BMI: 34.0 Code: 91891-0 Heart Rate 1: 84 bpm Height: 5'4" Respiratory Rate: 20 bpm Temperature: 36 .8 (C) / 98.2 (F) Weight: 198 lbs 05/26/2013 Blood Pressure 1: 114/80 Code: 8480-6 BMI: 35.0 Code: 92540-8 Heart Rate 1: 80 bpm Height: 5'4" Respiratory Rate: 20 bpm Temperature: 36 .4 (C) / 97.6 (F) Weight: 204 lbs 04/16/2013 Blood Pressure 1: 114/82 Code: 8480-6 BMI: 36.7 Code: 93035-0 Heart Rate 1: 84 bpm Height: 5'4" Respiratory Rate: 20 bpm Temperature: 36 .7 (C) / 98.0 (F) Weight: 214 lbs 03/05/2013 Blood Pressure 1: 136/90 Code: 8480-6 BMI: 37.1 Code: 21171-3 Heart Rate 1: 84 bpm Height: 5'4" [...] 1: 168/114 Code: 8480-6 BMI: 36.2 Code: 10301-6 Heart Rate 1: 104 bpm Height: 5'4" Respiratory Rate: 20 bpm Temperature: 36 .8 (C) / 98.2 (F) Weight: 211 lbs 11/22/2012 Blood Pressure 1: 128/90 Code: 8480-6 Heart Rate 1: 88 bpm Respiratory Rate: 20 bpm SpO2: 96% Temperature: 36.8 (C) / 98.2 (F) 11/21/2012 Blood Pressure 1: 146/100 Code: 8480-6 BMI: 35.7 Code: 53728-9 Heart Rate 1: 96 bpm Height: 5'4" [...] 1: 138/100 Code: 8480-6 BMI: 35.7 Code: 45962-8 Heart Rate 1: 96 bpm Height: 5'4" Respiratory Rate: 20 bpm Temperature: 36 .8 (C) / 98.2 (F) Weight: 208 lbs 05/06/2012 Blood Pressure 1: 154/102 Code: 8480-6 BMI: 34.7 Code: 73618-3 Heart Rate 1: 116 bpm Height: 5'4" Respiratory Rate: 20 bpm Temperature: 36 .8 (C) / 98.2 (F) Weight: 202 lbs 04/03/2012 Blood Pressure 1: 134/94 Code: 8480-6 BMI: 34.8 Code: 29030-8 Heart Rate 1: 108 bpm Height: 5'4" Respiratory Rate: 20 bpm Temperature: 36 .8 (C) / 98.2 (F) Weight: 203 lbs 03/19/2012 Blood Pressure 1: 148/106 Code: 8480-6 BMI: 35.0 Code: 84791-1 Heart Rate 1: 100 bpm Height: 5'4" Respiratory Rate: 20 bpm Temperature: 36 .6 (C) / 97.9 (F) Weight: 204 lbs 02/22/2012 Blood Pressure 1: 146/94 Code: 8480-6 He art Rate 1: 88 bpm 02/21/2012 Blood Pressure 1: 172/120 Code: 8480-6 B lood Pressure 2: 152/106 Code: 8480-6 Heart Rate 1: 116 bpm 02/20/2012 Blood Pressure 1: 160/100 Code: 8480-6 BMI: 32.0 Code: 05467-8 Heart Rate 1: 84 bpm Height: 5'7" Temperature: 36.5 (C) / 97.7 (F) Weight: 204 lbs 01/30/2012 Blood Pressure 1: 152/110 Code: 8480-6 BMI: 32.0 Code: 48787-1 Heart Rate 1: 116 bpm Height: 5'7" Respiratory Rate: 20 bpm Temperature: 37 .0 (C) / 98.6 (F) Weight: 204 lbs 01/24/2012 Blood Pressure 1: 146/100 Code: 8480-6 BMI: 32.0 Code: 39440-7 Heart Rate 1: 100 bpm Height: 5'7" Respiratory Rate: 20 bpm Temperature: 36 .7 (C) / 98.0 (F) Weight: 204 lbs 01/10/2012 Blood Pressure 1: 156/94 Code: 8480-6 BMI: 32.6 Code: 67416-2 Heart Rate 1: 72 bpm Height: 5'7" Respiratory Rate: 20 bpm Temperature: 36 .8 (C) / 98.2 (F) Weight: 208 lbs 12/11/2011 Blood Pressure 1: 146/100 Code: 8480-6 Heart Rat e 1: 116 bpm Height: 5'7" Respiratory Rate: 20 bpm Temperature: 36.9 (C) / 98.4 (F) We ight: 11/09/2011 Blood Pressure 1: 148/96 Code: 8480-6 BMI: 32.1 Code: 23196-4 Heart Rate 1: 116 bpm Height: 5'7" Respiratory Rate: 20 bpm Temperature: 36 .7 (C) / 98.0 (F) Weight: 205 lbs 09/13/2011 Blood Pressure 1: 126/88 Code: 8480-6 Heart Rate 1: 88 bpm Height: 5'7" Respiratory Rate: 20 bpm Temperature: 36.9 (C) / 98.4 (F) We ight: 08/31/2011 Blood Pressure 1: 118/82 Code: 8480-6 BMI: 32.0 Code: 34490-9 Heart Rate 1: 80 bpm Height: 5'7" Temperature: 36.4 (C) / 97.6 (F) Weight: 204 lbs 07/06/2011 Blood Pressure 1: 128/86 Code: 8480-6 BMI: 30.9 Code: 44265-9 Heart Rate 1: 92 bpm Height: 5'7" Respiratory Rate: 20 bpm Temperature: 36 .9 (C) / 98.4 (F) Weight: 197 lbs 06/06/2011 Blood Pressure 1: 112/74 Code: 8480-6 BMI: 31.0 Code: 33092-0 Heart Rate 1: 72 bpm Height: 5'7" [...] 1: 128/92 Code: 8480-6 BMI: 33.6 Code: 09666-6 Heart Rate 1: 104 bpm Height: 5'4" Temperature: 36.8 (C) / 98.3 (F) Weight: 196 lbs Functional Status No Functional Status data Reason For Visit Reason For Visit Effective Dates Notes nasal allergies 01/13/2020 follow up 11/20/2019 sores [...] Codes Date () OFFICE/OUTPATIENT VISIT EST Diagnosis: Essential (primary) hypertension[ICD10: I10] Diagnosis: Type 2 diabetes mellitus with hyperglycemia[ICD10: E11.65] Diagnosis: Allergic rhinitis[ICD10: J30.9] María Elena JUARES [employer] CPT-4: 85207 01/13/2020 ([id number]) OFFICE/OUTPATIENT VISIT EST Diagnosis: Type 2 diabetes mellitus with hyperglycemia[ICD10: E11.65] María Elena Hicks [employer] CPT-4: 89648 11/20/2019 ([id number]) OFFICE/OUTPATIENT VISIT EST Diagnosis: Ingrowing nail[ICD10: L60.0] Diagnosis: Type 2 diabetes mellitus with hyperglycemia[ICD10: E11.65] Kathleen Hicks [employer] CPT-4: 05762 10/07/2019 ([id number]) OFFICE/OUTPATIENT VISIT EST Diagnosis: DM w/o complication type II, uncontrolled[ICD10: E11.65] Diagnosis: Hypertriglyceridemia[ICD10: E78.1] Diagnosis: Essential hypertension[ICD10: I10] María Elena Seamusabbey BASURTO TED APPIAH DO [facility] CPT-4: 96717 09/30/2019 ([id number]) NURSE/OUTPATIENT VISIT EST Diagnosis: Essential (primary) hypertension[ICD10: I10] Diagnosis: Cervicalgia[ICD10: M54.2] Diagnosis: Hyperglycemia, unspecified[ICD10: R73.9] Diagnosis: Mixed hyperlipidemia[ICD10: E78.2] María Elena JEAN Fabiola APPIAH [employer] [facility] CPT-4: 79223 09/29/2019 ([id number]) OFFICE/OUTPATIENT VISIT EST Diagnosis: Essential (primary) hypertension[ICD10: I10] Diagnosis: Fall from bed, sequela[ICD10: W06.XXXS] María Elena REED LucioJj TD [employer] [facility] CPT-4: 66310 05/28/2019 ([id number]) NURSE/OUTPATIENT VISIT EST Diagnosis: Essential (primary) hypertension[ICD10: I10] María Elenamarcella MONTEROQUELINE [employer] [facility] CPT-4: 69026 05/19/2019 ([id number]) OFFICE/OUTPATIENT VISIT EST Diagnosis: Essential (primary) hypertension[ICD10: I10] Diagnosis: Type 2 diabetes mellitus with hyperglycemia[ICD10: E11.65] Diagnosis: Intervertebral disc disorders with radiculopathy, 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] Diagnosis: Hormone replacement therapy[ICD10: Z79.890] María Elena JUARES [employer] [facility] CPT-4: 09428 01/22/2019 ([id number]) OFFICE/OUTPATIENT VISIT EST Diagnosis: Essential (primary) hypertension[ICD10: I10] Diagnosis: Type 2 diabetes mellitus with hyperglycemia[ICD10: E11.65] María Elena JUARES LucioJj TD [facility] CPT-4: 76843 09/30/2018 ([id number]) OFFICE/OUTPATIENT VISIT EST Diagnosis: Pain in left elbow[ICD10: M25.522] Diagnosis: Acute stress reaction[ICD10: F43.0] Diagnosis: Primary insomnia[ICD10: F51.01] Diagnosis: Abnormal weight gain[ICD10: R63.5] María Elena Td APPIAH [facility] CPT-4: 34859 08/27/2018 ([id number]) OFFICE/OUTPATIENT VISIT EST Diagnosis: Acute recurrent sinusitis, unspecified[ICD10: J01.91] Diagnosis: Follicular disorder, unspecified[ICD10: L73.9] Diagnosis: Tinea corporis[ICD10: B35.4] María Elena APPIAH [facility] CPT-4: 35531 08/09/2018 ([id number]) OFFICE/OUTPATIENT VISIT EST Diagnosis: Tinea corporis[ICD10: B35.4] Diagnosis: Anxiety disorder, unspecified[ICD10: F41.9] Diagnosis: Menopausal and female climacteric states[ICD10: N95.1] María Elena Seamusmindimaryjane ELLISMARÍA ELENA Fabiola [facility] CPT-4: 15290 07/22/2018 ([id number]) NURSE/OUTPATIENT VISIT EST Diagnosis: Cellulitis of right toe[ICD10: L03.031] María Elena Waymindimaryjane [facility] CPT-4: 14159 06/19/2018 ([id number]) OFFICE/OUTPATIENT VISIT EST Diagnosis: Cellulitis of right toe[ICD10: L03.031] Kathleen APPIAH [facility] CPT-4: 38255 06/17/2018 ([id number]) OFFICE/OUTPATIENT VISIT EST Diagnosis: Migraine without aura, intractable, without status migrainosus[ICD10: G43.019] Diagnosis: Zoster without complications[ICD10: B02.9] Kathleen APPIAH [facility] CPT-4: 31544 05/16/2018 ([id number]) OFFICE/OUTPATIENT VISIT EST Diagnosis: Cellulitis of right lower limb[ICD10: L03.115] Kathleen APPIAH [facility] CPT-4: 32555 03/20/2018 ([id number]) OFFICE/OUTPATIENT VISIT EST Diagnosis: Cellulitis of right lower limb[ICD10: L03.115] Kathleen APPIAH DO [facility] CPT-4: 53994 03/18/2018 ([id number]) OFFICE/OUTPATIENT VISIT EST Diagnosis: Cellulitis of right lower limb[ICD10: L03.115] Kathleen APPIAH DO [facility] CPT-4: 84286 03/15/2018 ([id number]) OFFICE/OUTPATIENT VISIT EST Diagnosis: Acute sinusitis, unspecified[ICD10: J01.90] Kathleen APPIHA DO [facility] CPT-4: 35058 02/11/2018 ([id number]) NURSE/OUTPATIENT VISIT EST Diagnosis: Otitis media, unspecified, right ear[ICD10: H66.91] María Elena APPIAH DO [facility] CPT-4: 46378 02/01/2018 ([id number]) OFFICE/OUTPATIENT VISIT EST Diagnosis: Acute suppurative otitis media without spontaneous rupture of ear drum, left ear[ICD10: H66.002] Diagnosis: Abnormal weight gain[ICD10: R63.5] Diagnosis: Intervertebral disc disorders with radiculopathy, 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] Kathleen APPIAH DO [facility] CPT-4: 99 214 01/30/2018 ([id number]) PREV VISIT EST AGE 40-64 Diagnosis: Encounter for general adult medical examination without abnormal findings[ICD10: Z00.00] Diagnosis: Essential (primary) hypertension[ICD10: I10] Diagnosis: Mixed hyperlipidemia[ICD10: E78.2] Diagnosis: Type 2 diabetes mellitus with hyperglycemia[ICD10: E11.65] Diagnosis: 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] María Elena APPIAH DO [facility] CPT-4: 81605 12/18/2017 ([id number]) OFFICE/OUTPATIENT VISIT EST Diagnosis: Cellulitis of right toe[ICD10: L03.031] Diagnosis: Mixed hyperlipidemia[ICD10: E78.2] Diagnosis: Essential (primary) hypertension[ICD10: I10] Diagnosis: Hyperglycemia, unspecified[ICD10: R73.9] Diagnosis: Nontoxic goiter, 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] María Elena APPIAH DO [facility] CPT-4: 02305 12/10/2017 ([id number]) OFFICE/OUTPATIENT VISIT EST Diagnosis: Cellulitis of right toe[ICD10: L03.031] Diagnosis: Acute sinusitis, unspecified[ICD10: J01.90] Kathleen APPIAH DO [facility] CPT-4: 37482 12/07/2017 OFFICE/OUTPATIENT VISIT EST Diagnosis: Acute maxillary sinusitis, unspecified[ICD10: J01.00] Kathleen APPIAH DO [facility] CPT-4: 64235 10/08/2017 ([id number]) OFFICE/OUTPATIENT VISIT EST Diagnosis: Cellulitis of left toe[ICD10: L03.032] María Elena APPIAH DO [facility] CPT-4: 26102 09/21/2017 ([id number]) OFFICE/OUTPATIENT VISIT EST Diagnosis: Insomnia, unspecified[ICD10: G47.00] Diagnosis: Major depressive disorder, single episode, unspecified[ICD10: F32.9] Diagnosis: Anxiety disorder, unspecified[ICD10: F41.9] Diagnosis: Cellulitis of left toe[ICD10: L03.032] Diagnosis: Snoring[ICD10: R06.83] Kathleen APPIAH DO [facility] CPT-4: 88158 09/20/2017 ([id number]) OFFICE/OUTPATIENT VISIT EST Diagnosis: Cellulitis of left toe[ICD10: L03.032] María Elena APPIAH DO [facility] CPT-4: 93531 07/19/2017 OFFICE/OUTPATIENT VISIT EST Diagnosis: Chronic sinusitis, unspecified[ICD10: J32.9] Diagnosis: Generalized hyperhidrosis[ICD10: R61] Kathleen APPIAH DO [facility] CPT-4: 87367 06/27/2017 ([id number]) OFFICE/OUTPATIENT VISIT EST Diagnosis: Intervertebral disc disorders with radiculopathy, 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] Diagnosis: Primary insomnia[ICD10: F51.01] Diagnosis: Other fatigue[ICD10: R53.83] María Elena APPIAH DO [facility] CPT-4: 24347 04/10/2017 ([id number]) OFFICE/OUTPATIENT VISIT EST Diagnosis: Primary insomnia[ICD10: F51.01] Diagnosis: Localized edema[ICD10: R60.0] Diagnosis: 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] María Elena APPIAH DO [facility] CPT-4: 22573 12/13/2016 ([id number]) OFFICE/OUTPATIENT VISIT EST Diagnosis: Primary insomnia[ICD10: F51.01] Diagnosis: Cyanosis[ICD10: R23.0] María Elena Bazzi [employer] CPT-4: 35929 11/01/2016 ([id number]) PREV VISIT EST AGE 40-64 Diagnosis: Encounter for gynecological examination (general) (routine) without abnormal findings[ICD10: Z01.419] Diagnosis: Encounter for routine child health examination without abnormal findings[ICD10: Z00.129] María Elena APPIAH [employer] CPT-4: 74993 10/17/2016 ([id number]) OFFICE/OUTPATIENT VISIT EST Diagnosis: Other seasonal allergic rhinitis[ICD10: J30.2] María Elena APPIAH DO [employer] CPT-4: 13922 10/10/2016 ([id number]) OFFICE/OUTPATIENT VISIT EST Diagnosis: Pain in left arm[ICD10: M79.602] Diagnosis: Contact with and (suspected) exposure to potentially hazardous body fluids[ICD10: Z77.21] Diagnosis: 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, 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] Diagnosis: Unspecified open wound, right foot, sequela[ICD10: S91.301S] María Elena APPIAH DO [facility] CPT-4: 96777 09/19/2016 ([id number]) OFFICE/OUTPATIENT VISIT EST Diagnosis: Chronic sinusitis, unspecified[ICD10: J32.9] Diagnosis: Allergic rhinitis due to pollen[ICD10: J30.1] María Elena APPIAH DO [facility] CPT-4: 30515 08/24/2016 ([id number]) OFFICE/OUTPATIENT VISIT EST Diagnosis: Acute bronchitis, unspecified[ICD10: J20.9] María Elena APPIAH DO [facility] CPT-4: 44439 08/16/2016 ([id number]) OFFICE/OUTPATIENT VISIT EST Diagnosis: Otitis media, unspecified, right ear[ICD10: H66.91] Diagnosis: Acute bronchitis, unspecified[ICD10: J20.9] María Elena APPIAH DO [facility] CPT-4: 31785 08/10/2016 ([id number]) OFFICE/OUTPATIENT VISIT EST Diagnosis: Acute recurrent sinusitis, unspecified[ICD10: J01.91] Diagnosis: Allergic rhinitis due to pollen[ICD10: J30.1] María Elena APPIAH DO [facility] CPT-4: 46809 08/02/2016 ([id number]) OFFICE/OUTPATIENT VISIT EST Diagnosis: Pain in unspecified joint[ICD10: M25.50] María Elena APPIAH DO [facility] CPT-4: 46000 07/27/2016 OFFICE/OUTPATIENT VISIT EST Diagnosis: 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] Diagnosis: Acute recurrent sinusitis, unspecified[ICD10: J01.91] Diagnosis: Other fatigue[ICD10: R53.83] Diagnosis: Primary insomnia[ICD10: F51.01] Diagnosis: Pain in unspecified joint[ICD10: M25.50] María Elena APPIAH DO [facility] CPT-4: 74665 07/20/2016 ([id number]) OFFICE/OUTPATIENT VISIT EST Diagnosis: Blister (nonthermal), left great toe, initial encounter[ICD10: S90.422A] Loan APPIAH DO [facility] CPT-4: 32771 ([id number]) OFFICE/OUTPATIENT VISIT EST Diagnosis: Acute recurrent sinusitis, unspecified[ICD10: J01.91] María Elena WAYNDER [facility] CPT-4: 64694 05/25/2016 ([id number]) OFFICE/OUTPATIENT VISIT EST Diagnosis: Acute sinusitis, unspecified[ICD10: J01.90] María Elena APPIAH DO [facility] CPT-4: 94089 04/26/2016 ([id number]) OFFICE/OUTPATIENT VISIT EST Diagnosis: Flushing[ICD10: R23.2] Diagnosis: Primary insomnia[ICD10: F51.01] María Elena APPIAH [facility] CPT-4: 13057 03/02/2016 ([id number]) OFFICE/OUTPATIENT VISIT EST Diagnosis: Other seasonal allergic rhinitis[ICD10: J30.2] Loan APPIAH [facility] CPT-4: 60808 02/09/2016 ([id number]) OFFICE/OUTPATIENT VISIT EST Diagnosis: Primary insomnia[ICD10: F51.01] Diagnosis: Urinary tract infection, site not specified[ICD10: N39.0] María Elena APPIAH [facility] CPT-4: 47267 01/24/2016 ([id number]) OFFICE/OUTPATIENT VISIT EST Diagnosis: Other specified disorders of Eustachian tube, bilateral[ICD10: H69.83] Diagnosis: Allergic rhinitis, unspecified[ICD10: J30.9] Loan APPIAH [facility] CPT-4: 29725 12/23/2015 ([id number]) OFFICE/OUTPATIENT VISIT EST Diagnosis: Acute recurrent sinusitis, unspecified[ICD10: J01.91] Diagnosis: 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] Diagnosis: Allergic rhinitis, unspecified[ICD10: J30.9] María Elena APPIAH DO [facility] CPT-4: 53891 12/08/2015 ([id number]) OFFICE/OUTPATIENT VISIT EST Diagnosis: Allergic rhinitis, unspecified[ICD10: J30.9] Diagnosis: Pain in unspecified joint[ICD10: M25.50] María Elena APPIAH [facility] CPT-4: 30840 10/07/2015 ([id number]) OFFICE/OUTPATIENT VISIT EST Diagnosis: Essential (primary) hypertension[ICD10: I10] María Elena APPIAH DO [facility] CPT-4: 30858 10/06/2015 OFFICE/OUTPATIENT VISIT EST Diagnosis: Localized enlarged lymph nodes[ICD10: R59.0] Diagnosis: Local infection of the skin and subcutaneous tissue, unspecified[ICD10: L08.9] June APPIAH DO [facility] CPT- 4: 59293 09/14/2015 ([id number]) OFFICE/OUTPATIENT VISIT EST Diagnosis: Essential (primary) hypertension[ICD10: I10] Diagnosis: Actinic keratosis[ICD10: L57.0] María Elena APPIAH DO [facility] CPT-4: 60742 09/07/2015 ([id number]) OFFICE/OUTPATIENT VISIT EST Diagnosis: Essential (primary) hypertension[ICD10: I10] Diagnosis: Acute stress reaction[ICD10: F43.0] María Elena APPIAH DO [facility] CPT-4: 60438 08/18/2015 ([id number]) OFFICE/OUTPATIENT VISIT EST Diagnosis: Essential (primary) hypertension[ICD10: I10] María Elena APPIAH DO [facility] CPT-4: 01295 07/07/2015 ([id number]) OFFICE/OUTPATIENT VISIT EST Diagnosis: Essential (primary) hypertension[ICD10: I10] María Elena APPIAH DO [facility] CPT-4: 21482 06/24/2015 ([id number]) OFFICE/OUTPATIENT VISIT EST Diagnosis: Essential (primary) hypertension[ICD10: I10] María Elena APPIAH DO [facility] CPT-4: 66760 06/21/2015 ([id number]) OFFICE/OUTPATIENT VISIT EST Diagnosis: Essential (primary) hypertension[ICD10: I10] Diagnosis: Mixed hyperlipidemia[ICD10: E78.2] Diagnosis: Acute stress reaction[ICD10: F43.0] Diagnosis: Primary insomnia[ICD10: F51.01] María Elena APPIAH DO [facility] CPT-4: 10894 06/16/2015 ([id number]) OFFICE/OUTPATIENT VISIT EST Diagnosis: INSOMNIA NOS[ICD9: 780.52] Diagnosis: HYPERTENSION[ICD9: 401.9] Diagnosis: Stress reaction[ICD9: 308.9] María Elena APPIAH DO [facility] CPT-4: 40855 06/02/2015 ([id number]) OFFICE/OUTPATIENT VISIT EST Diagnosis: HYPERTENSION[ICD9: 401.9] Diagnosis: Stress reaction[ICD9: 308.9] María Elena APPIAH DO [facility] CPT-4: 14015 05/20/2015 ([id number]) OFFICE/OUTPATIENT VISIT EST Diagnosis: Skin lesion[ICD9: 709.9] 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] María Elena APPIAH DO [facility] CPT-4: 65418 05/10/2015 ([id number]) OFFICE/OUTPATIENT VISIT EST Diagnosis: SINUSITIS, ACUTE[ICD9: 461.9] Diagnosis: ALLERGIC RHINITIS[ICD9: 477.9] Diagnosis: DERMATITIS NOS[ICD9: 692.9] María Elena REHMAN [facility] CPT-4: 32819 03/16/2015 OFFICE/OUTPATIENT VISIT EST Diagnosis: Otitis media[ICD9: 382.9] Diagnosis: SINUSITIS, ACUTE[ICD9: 461.9] June Flores MARÍA ELENA APPIAH [employer] [facility] CPT-4: 53846 09/11/2014 ([id number]) OFFICE/OUTPATIENT VISIT EST Diagnosis: HYPERLIPIDEMIA NEC/NOS[ICD9: 272.4] María Elena APPIAH [employer] [facility] CPT-4: 07267 08/31/2014 ([id number]) OFFICE/OUTPATIENT VISIT EST Diagnosis: - I - HYPERTENSION[ICD9: 401.9] Diagnosis: HYPERLIPIDEMIA NEC/NOS[ICD9: 272.4] María Elena APPIAH DO [facility] CPT-4: 29666 08/27/2014 ([id number]) OFFICE/OUTPATIENT VISIT EST Diagnosis: ABDOMINAL PAIN[ICD9: 789.00] Diagnosis: DYSPEPSIA[ICD9: 536.8] Diagnosis: Thoracic back pain[ICD9: 724.1] María Elena APPIAH DO [facility] CPT-4: 69555 07/21/2014 ([id number]) OFFICE/OUTPATIENT VISIT EST Diagnosis: ALLERGIC RHINITIS[ICD9: 477.9] María Elena APPIAH DO [facility] CPT-4: 05454 07/15/2014 ([id number]) OFFICE/OUTPATIENT VISIT EST Diagnosis: EDEMA[ICD9: 782.3] Diagnosis: Chronic insomnia[ICD9: 780.52] María Elena APPIAH DO [facility] CPT-4: 44287 05/18/2014 ([id number]) OFFICE/OUTPATIENT VISIT EST Diagnosis: Thyromegaly[ICD9: 240.9] Diagnosis: - I - HYPERTENSION[ICD9: 401.9] Diagnosis: ROUTINE MEDICAL EXAM[ICD9: V70.0] Diagnosis: EDEMA[ICD9: 782.3] María Elena APPIAH [facility] CPT-4: 36553 05/14/2014 OFFICE/OUTPATIENT VISIT EST Diagnosis: BRONCHITIS, ACUTE[ICD9: 466.0] Diagnosis: SINUSITIS, ACUTE[ICD9: 461.9] María Elena APPIAH [facility] CPT-4: 21756 04/21/2014 OFFICE/OUTPATIENT VISIT EST Diagnosis: SINUSITIS, ACUTE[ICD9: 461.9] June Sandra MARÍA ELENA APPIAH [facility] CPT-4: 70478 03/04/2014 ([id number]) OFFICE/OUTPATIENT VISIT EST Diagnosis: VACCINE FOR TDAP[ICD10: Z23] María Elena APPIAH [facility] CPT-4: 53977 02/27/2014 ([id number]) OFFICE/OUTPATIENT VISIT EST Diagnosis: Seborrheic keratoses, inflamed[ICD9: 702.11] Diagnosis: ACTINIC KERATOSIS[ICD9: 702.0] Diagnosis: INSOMNIA NOS[ICD9: 780.52] María Elena PANDYA [facility] CPT-4: 30555 01/13/2014 OFFICE/OUTPATIENT VISIT EST 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] Diagnosis: ALLERGIC RHINITIS[ICD9: 477.9] Diagnosis: Serous otitis media[ICD9: 381.4] María Elena APPIAH [facility] CPT-4: 21878 12/24/2013 ([id number]) OFFICE/OUTPATIENT VISIT EST Diagnosis: SINUSITIS, ACUTE[ICD9: 461.9] Diagnosis: ALLERGIC RHINITIS[ICD9: 477.9] 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] María Elena APPIAH [facility] CPT-4: 18375 11/12/2013 ([id number]) OFFICE/OUTPATIENT VISIT EST Diagnosis: ALLERGIC RHINITIS[ICD9: 477.9] Diagnosis: SINUSITIS, ACUTE[ICD9: 461.9] María Elena APPIAH [facility] CPT-4: 19249 10/21/2013 ([id number]) OFFICE/OUTPATIENT VISIT EST Diagnosis: ASYMPTOMATIC VARICOSE VEINS[ICD9: 454.9] Diagnosis: INSOMNIA NOS[ICD9: 780.52] [facility] C[facility]: 26056 09/22/2013 OFFICE/OUTPATIENT VISIT EST Diagnosis: SINUSITIS, ACUTE[ICD9: 461.9] June Washingtondaniella APPIAH [facility] CPT-4: 64844 08/27/2013 ([id number]) OFFICE/OUTPATIENT VISIT EST Diagnosis: CEPHALGIA[ICD9: 784.0] Diagnosis: CEPHALGIA, TENSION[ICD9: 307.81] 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] María Elena APPIAH [facility] CPT-4: 45203 08/04/2013 ([id number]) OFFICE/OUTPATIENT VISIT EST Diagnosis: Cervicalgia[ICD9: 723.1] Diagnosis: SPASM OF MUSCLE[ICD9: 728.85] Diagnosis: CEPHALGIA, TENSION[ICD9: 307.81] María Elena APPIAH [facility] CPT-4: 94597 07/23/2013 ([id number]) OFFICE/OUTPATIENT VISIT EST 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] Diagnosis: ALLERGIC RHINITIS[ICD9: 477.9] María Elena Seamusabbey JUARES Lucio Jj TD [facility] CPT-4: 95435 06/23/2013 ([id number]) OFFICE/OUTPATIENT VISIT EST Diagnosis: ALLERGIC RHINITIS[ICD9: 477.9] Diagnosis: ACUTE SEROUS OTITIS MEDIA[ICD9: 381.01] 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] María Elena JUARES LucioJj TD [facility] CPT-4: 23464 05/26/2013 ([id number]) OFFICE/OUTPATIENT VISIT EST Diagnosis: HYPERTENSION[ICD9: 401.9] Diagnosis: EDEMA[ICD9: 782.3] Diagnosis: Serous otitis media[ICD9: 381.4] María Elena JUARES LucioJj [facility] CPT-4: 14909 04/16/2013 ([id number]) OFFICE/OUTPATIENT VISIT EST Diagnosis: SINUSITIS, ACUTE[ICD9: 461.9] Diagnosis: ALLERGIC RHINITIS[ICD9: 477.9] Diagnosis: EDEMA[ICD9: 782.3] Diagnosis: Thyromegaly[ICD9: 240.9] Diagnosis: MALAISE AND FATIGUE[ICD9: 780.79] María Elena Lopez LucioJj [facility] CPT-4: 06310 03/05/2013 ([id number]) OFFICE/OUTPATIENT VISIT EST Diagnosis: PAIN, LOWER BACK[ICD9: 724.2] Diagnosis: SPASM OF MUSCLE[ICD9: 728.85] María Elena JUARES LucioJj TD [facility] CPT-4: 89440 12/23/2012 OFFICE/OUTPATIENT VISIT EST Diagnosis: Low back pain[ICD9: 724.2] Lashawn Hicks KRISTYN [facility] CPT-4: 18758 12/16/2012 ([id number]) OFFICE/OUTPATIENT VISIT EST Diagnosis: PAIN, LOWER BACK[ICD9: 724.2] Diagnosis: SCIATICA[ICD9: 724.3] Diagnosis: Lumbar herniated disc[ICD9: 722.10] María Elena Hicks [facility] CPT-4: 15250 12/09/2012 ([id number]) OFFICE/OUTPATIENT VISIT EST Diagnosis: PAIN, LOWER BACK[ICD9: 724.2] Diagnosis: SCIATICA[ICD9: 724.3] Diagnosis: LUMBAR DISC DISPLACEMENT[ICD9: 722.10] María Elena ISAAC TANIA APPIAH DO [facility] CPT-4: 16449 12/04/2012 OFFICE/OUTPATIENT VISIT EST Diagnosis: Pneumonia[ICD9: 486] Mary Layne MARÍA ELENA Fabiola APPIAH DO [facility] CPT-4: 60284 11/22/2012 ([id number]) OFFICE/OUTPATIENT VISIT EST Diagnosis: PNEUMONIA, ORGANISM[ICD9: 486] Diagnosis: Exacerbation of RAD (reactive airway disease)[ICD9: 493.92] María Elenamarcella Appiah MARÍA ELENA Fabiola APPIAH [facility] CPT-4: 15063 11/21/2012 OFFICE/OUTPATIENT VISIT EST Diagnosis: HYPERTENSION[ICD9: 401.9] Diagnosis: Cephalgia[ICD9: 784.0] Lashawn MONTEROQUELINE Fabiola APPIAH DO [facility] CPT-4: 61676 10/29/2012 ([id number]) OFFICE/OUTPATIENT VISIT EST Diagnosis: MALAISE AND FATIGUE[ICD9: 780.79] Diagnosis: ARTHRALGIA-MULTIPLE SITES[ICD9: 719.49] María Elena MONTERO APARNAALCIDES Fabiola APPIAH [facility] CPT-4: 13180 10/14/2012 ([id number]) OFFICE/OUTPATIENT VISIT EST Diagnosis: URINARY FREQUENCY[ICD9: 788.41] María Elena MONTEROQUELINE Fabiola APPIAH DO [facility] CPT-4: 97665 09/27/2012 ([id number]) OFFICE/OUTPATIENT VISIT EST Diagnosis: MALAISE AND FATIGUE[ICD9: 780.79] Diagnosis: ARTHRALGIA-MULTIPLE SITES[ICD9: 719.49] María Elena MONTERO APARNAALCIDES LucioJj TD [facility] CPT-4: 38173 09/25/2012 ([id number]) OFFICE/OUTPATIENT VISIT EST Diagnosis: SINUSITIS, ACUTE[ICD9: 461.9] 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] María Elena JUARES [facility]ioJj [facility] C[facility]: 73525 08/29/2012 OFFICE/OUTPATIENT VISIT EST Diagnosis: ACTINIC KERATOSIS[ICD9: 702.0] Diagnosis: Inflamed seborrheic keratosis[ICD9: 702.11] Diagnosis: Skin cancer of face[ICD9: 173.31] Diagnosis: HYPERTENSION[ICD9: 401.9] María Elena SEYMOUR [facility] CPT-4: 51784 08/12/2012 ([id number]) OFFICE/OUTPATIENT VISIT EST Diagnosis: ARTHRALGIA-MULTIPLE SITES[ICD9: 719.49] Diagnosis: GOUT[ICD9: 274.9] Diagnosis: HYPERTENSION[ICD9: 401.9] Diagnosis: Tachycardia[ICD9: 785.0] María Elena BRADFORD [facility] CPT-4: 35475 05/06/2012 ([id number]) OFFICE/OUTPATIENT VISIT EST Diagnosis: INSOMNIA NOS[ICD9: 780.52] María Elena [facility] CPT-4: 09398 04/03/2012 ([id number]) OFFICE/OUTPATIENT VISIT EST Diagnosis: INSOMNIA NOS[ICD9: 780.52] Diagnosis: HYPERTENSION[ICD9: 401.9] Diagnosis: MIGRAINE NOS/NOT INTRCBL[ICD9: 346.90] María [facility]: 68759 03/19/2012 ([id number]) OFFICE/OUTPATIENT VISIT EST Diagnosis: CELLULITIS[ICD9: 682.9] Diagnosis: Ankle pain[ICD9: 719.47] Diagnosis: HYPERTENSION[ICD9: 401.9] María Elena ValdesJj SEAMUS SEYMOUR [facility] CPT-4: 39286 02/20/2012 ([id number]) OFFICE/OUTPATIENT VISIT EST Diagnosis: MIGRAINE NOS/NOT INTRCBL[ICD9: 346.90] Diagnosis: Vomiting[ICD9: 787.03] María Elena Waymindimaryjane MONTEROMARÍA ELENA LucioJj CIRO Bazzi [facility] CPT-4: 16591 01/30/2012 ([id number]) OFFICE/OUTPATIENT VISIT EST Diagnosis: EDEMA[ICD9: 782.3] Diagnosis: HYPERTENSION[ICD9: 401.9] Diagnosis: ALLERGIC RHINITIS[ICD9: 477.9] Diagnosis: ARTHRALGIA-MULTIPLE SITES[ICD9: 719.49] María Elena APPIAH [facility] CPT-4: 08334 01/24/2012 ([id number]) OFFICE/OUTPATIENT VISIT EST Diagnosis: SPASM OF MUSCLE[ICD9: 728.85] Diagnosis: Thoracic back pain[ICD9: 724.1] Diagnosis: Cervical pain[ICD9: 723.1] María Elena PANDYA [facility] CPT-4: 98436 01/10/2012 OFFICE/OUTPATIENT VISIT EST Diagnosis: PAIN, LOWER BACK[ICD9: 724.2] Diagnosis: LUMBAR DISC DISPLACEMENT[ICD9: 722.10] María Elena [facility]aryjane [facility]: 64014 12/11/2011 OFFICE/OUTPATIENT VISIT EST Diagnosis: MIGRAINE NOS/NOT INTRCBL[ICD9: 346.90] Diagnosis: SINUSITIS, ACUTE[ICD9: 461.9] María Elena APPIAH [facility] CPT-4: 78819 11/09/2011 OFFICE/OUTPATIENT VISIT EST Diagnosis: MIGRAINE NOS/NOT INTRCBL[ICD9: 346.90] Diagnosis: LYMPHADENOPATHY[ICD9: 785.6] María Elena [facility] CPT-4: 68391 09/13/2011 OFFICE/OUTPATIENT VISIT EST Diagnosis: MALAISE AND FATIGUE[ICD9: 780.79] Diagnosis: ARTHRALGIA-MULTIPLE SITES[ICD9: 719.49] María Elena Seamusmindimaryjane APPIAH [facility] CPT-4: 41821 08/31/2011 OFFICE/OUTPATIENT VISIT EST Diagnosis: SINUSITIS, ACUTE[ICD9: 461.9] María Elena Td APPIAH [facility] CPT-4: 74147 07/20/2011 OFFICE/OUTPATIENT VISIT EST Diagnosis: HYPERTENSION[ICD9: 401.9] Diagnosis: PAIN, LOWER BACK[ICD9: 724.2] Diagnosis: SPASM OF MUSCLE[ICD9: 728.85] María Elena MONTEROQUELINE S. ORENDER DO [facility] CPT-4: 73571 07/06/2011 OFFICE/OUTPATIENT VISIT EST Diagnosis: MIGRAINE NOS/NOT INTRCBL[ICD9: 346.90] Diagnosis: HYPERTENSION[ICD9: 401.9] María Elena WAY NDER DO [employer] CPT-4: 37537 05/22/2011 OFFICE/OUTPATIENT VISIT EST Diagnosis: SINUSITIS, ACUTE[ICD9: 461.9] Diagnosis: MIGRAINE NOS/NOT INTRCBL[ICD9: 346.90] Diagnosis: Dehydration[ICD9: 276.51] Diagnosis: Vomiting[ICD9: 787.03] María Elena ELLISLINE Fabiola ORTAE R DO [facility] CPT-4: 80586 05/09/2011 ([id number]) OFFICE/OUTPATIENT VISIT EST María Elena ISAAC UJARED S. ORENDER DO [employer] CPT-4: 01104 02/14/2011 ([id number]) OFFICE/OUTPATIENT VISIT EST María Elena Td ISAAC UELINE S. ORENDER DO [facility] CPT-4: 84425 02/03/2011 ([id number]) OFFICE/OUTPATIENT VISIT EST María Elena ISAAC [facility]INE [facility] CPT-4: 82373 01/31/2011 ([id number]) OFFICE/OUTPATIENT VISIT EST María Elena ISAAC UELINE S. ORENDER DO [facility] CPT-4: 38190 01/25/2011 ([id number]) OFFICE/OUTPATIENT VISIT EST María Elena Td ISAAC UELINE S. ORENDER DO [facility] CPT-4: 44227 01/18/2011 ([id number]) OFFICE/OUTPATIENT VISIT EST María Elena ISAAC UELINE [facility] CPT-4: 75231 11/29/2010 ([id number]) OFFICE/OUTPATIENT VISIT, EST María Elena Seamusmindimaryjane BRAUNALCIDES [facility] CPT-4: 92677 10/10/2010 ([id number]) OFFICE/OUTPATIENT VISIT, EST María Elena Seamusmindimaryjane BRAUNALCIDES S. ORENDER DO [employer] CPT-4: 24510 06/07/2010 ([id number]) OFFICE/OUTPATIENT VISIT, EST María Elena Seamusndmaryjane REED [facility] CPT-4: 26806 04/27/2010 ([id number]) OFFICE/OUTPATIENT VISIT, EST María Elena [facility] CPT-4: 33524 04/05/2010 ([id number]) OFFICE/OUTPATIENT VISIT, EST María Elena REED SJj [facility] CPT-4: 59793 03/09/2010 ([id number]) OFFICE/OUTPATIENT VISIT, EST María Elena [facility] CPT-4: 16979 03/03/2010 ([id number]) OFFICE/OUTPATIENT VISIT, EST María Elena [facility] CPT-4: 68541 01/17/2010 ([id number]) PREV VISIT, EST, AGE 40-64 María Elena ORTAER DO [employer] CPT-4: 31322 12/27/2009 Plan of Care Planned Activity Notes Codes Status Date Visit Diagnosis Plan: Essential (primary) hypertension Discussion: [...] 01/13/2020 [facility]ment[facility] [phone] [id number] [facility] 01/13/2020 Patient Education: lisinopril- [employer] [id number] Completed 01/13/2020 Patient Education: glimepiride- [employer] [id number] Completed 01/13/2020 App[facility]ment: María Elena [facility] [phone] [facility] [facility] CAN[facility]ED 11/26/2019 Visit Diagnosis Plan: Type 2 diabetes mellitus with hy perglycemia Discussion: Januvia 100mg daily Glimepride 2mg po BID Accuchecks BID Call in 2 weeks with BS readings Get formulary book ICD-9 : 250.02 ICD-10 : E11.65 11/20/2019 Appointment: María Elena Appiah WPtel: [phone] [id number] [place] FOLLOW UP 11/20/2019 Patient Education: glimepiride- [employer]on [id number] Completed 11/20/2019 Patient Education: Januvia- [employer]on [id number] Completed 11/20/2019 Visit Diagnosis Plan: Ingrowing nail [...] ICD-10 : E11.65 10/07/2019 Appointment: Kathleen Zuniga [address] [place], [place] [id number] OFFICE SURGERY 10/07/2019 Visit Diagnosis Plan: Hypertriglyceridemia [...] E11.65 09/30/2019 Appointment: María Elena Appiah WPtel: [address] [place], [place] [phone] [place] CHECK UP 09/30/2019 Patient Education: Premarin- [employer]on [id number] https://www.[employer]!/resources/getResource/61/40273o72-k678-4vvb-w1 Completed 09/30/2019 Appointment: María Elena Appiah WPtel: [address] [place], [place] [phone] [place] LAB 09/29/2019 Appointment: María Elena Appiah WPtel: [address] [place], [place] [phone] [place] Won't have the new insurance till [...] W06.XXXS 05/28/2019 Appointment: María Elena Appiah WPtel: [phone] [place], [place] [phone] [place] FOLLOW UP 05/28/2019 Appointment: María Elena Appiah WPtel: [address] [place], [place] [phone] [place] BP CHECK 05/19/2019 Visit Diagnosis Plan: [...] Z79.890 01/22/2019 Appointment: María Elena Appiah WPtel: [address] [place], [place] [phone] [place] FOLLOW UP 01/22/2019 Patient Education: estradiol- [employer]on [id number] https://www.[employer]/resources/getResource/61/[email or web address] Completed 01/22/2019 Appointment: María Elena Appiah WPtel: [address] [place], [place] [phone] [place] CANCELED 01/20/2019 Appointment: María Elena Appiah WPtel: [address] [place], [place] [phone] [place] LM NO SHOW 01/06/2019 Appointment: María Elena Appiah WPtel: [address] [place], [place] [phone] [place] CANCELED 10/17/2018 Appointment: María Elena Appiah WPtel: [address] [place], [place] [phone] [place] BP CHECK 10/09/2018 Visit Diagnosis Plan: [...] I10 09/30/2018 Appointment: María Elena Appiah WPtel: [address] [place] [address] [place] FOLLOW UP 09/30/2018 Visit Diagnosis Plan: [...] F51.01 08/27/2018 Appointment: María Elena Appiah WPtel: [address] [place] [address] ACUTE ILLNESS 08/27/2018 Appointment: María Elena Appiah WPtel: [address] [place] [address] [place] Patient stated she went out to [...] Tyle... 08/09/2018 Appointment: María Elena Appiah WPtel: [address] [place] [address] ACUTE ILLNESS 08/09/2018 Appointment: María Elena Appiah WPtel: [address] [place] [address] NO SHOW 08/08/2018 Visit Diagnosis Plan: Anxiety [...] B35.4 07/22/2018 Appointment: María Elena Appiah WPtel: [address] [place] [address] ACUTE ILLNESS 07/22/2018 Appointment: María Elena Appiah WPtel: [address] [place] [address] [place] INJECTION 06/19/2018 Patient Education: Patient Medication [...] : L03.031 06/17/2018 Appointment: Kathleen Zuniga [address] [place] [address] ACUTE ILLNESS 06/17/2018 Patient Education: Patient Medication [...] ICD-10 : B02.9 05/16/2018 Appointment: Kathleen Zuniga [address] [place] [address] ACUTE ILLNESS 05/16/2018 Patient Education: Patient Medication [...] ICD-10 : L03.115 03/20/2018 Appointment: Kathleen Zuniga [address] [place], [place] [phone] FOLLOW UP 03/20/2018 Patient Education: Patient Medication [...] : L03.115 03/18/2018 Appointment: Kathleen Zuniga [address] [place], [place] [phone] FOLLOW UP 03/18/2018 Patient Education: Patient Medication [...] ICD-10 : L03.115 03/15/2018 Appointment: Kathleen Zuniga [address] [place] [address] ACUTE ILLNESS 03/15/2018 Patient Education: Patient Medication [...] ICD-10 : J01.90 02/11/2018 Appointment: Kathleen Zuniga [address] [place] [address] ACUTE ILLNESS 02/11/2018 Patient Education: Patient Medication Summary Completed 02/11/2018 Appointment: María Elena Appiah WPtel: [phone] [address] [place] INJECTION 02/01/2018 Patient Education: Patient Medication [...] ICD-10 : M51.16 01/30/2018 Appointment: Kathleen Zuniga [address] ACUTE ILLNESS 01/30/2018 Patient Education: Patient Medication Summary Completed 01/30/2018 Patient Education: Lyrica - 18+ - No [place] Completed 01/30/2018 Visit Diagnosis Plan: [...] E11.65 12/18/2017 Appointment: María Elena Appiah WPtel: [address] [place] [address] Annual Well Visit 12/18/2017 Patient Education: Patient Medication Summary Completed 12/18/2017 Care Plan: Referral Order SNOMED-CT : [id number] Pending 12/18/2017 Appointment: María Elena Appiah WPtel: [address] [place] [address] INJECTION 12/10/2017 Patient Education: Patient Medication Summary [...] ICD-10 : L03.031 12/07/2017 Appointment: Kathleen Zuniga [address] [place], [place] [id number] ACUTE ILLNESS 12/07/2017 Patient Education: Patient [...] ICD-10 : J01.00 10/08/2017 Appointment: Kathleen Zuniga [address] [place], [place] [id number] ACUTE ILLNESS 10/08/2017 Patient Education: Patient Medication Summary Completed 10/08/2017 Appointment: María Elena Appiah WPtel: [address] [facility] INJECTION 09/21/2017 Patient Education: Patient Medication Summary [...] : R06.83 09/20/2017 Appointment: Kathleen Zuniga 504 [facility] ACUTE ILLNESS 09/20/2017 Patient Education: Patient [...] ICD-10 : L60.0 08/29/2017 Appointment: Kathleen Zuniga [address] [place], [place] [id number] 08/29/2017 Patient Education: Patient Medication Summary Completed 08/29/2017 Visit Diagnosis Plan: Actinic keratosis Discussion: Cr yotherapy as above ICD-9 : 702.0 ICD-10 : L57.0 08/01/2017 Appointment: María Elena Appiah WPtel: [address] [facility] OFFICE SURGERY 08/01/2017 Patient Education: Patient Medication Summary Completed 08/01/2017 Appointment: María Elena Appiah WPtel: [facility] PATIENT THOUGHT APPOINTMENT WAS TOMORROW 07/26/17 CALLED 15 MINUTES BEFORE APPT TO SAY SHE DIDN'T HAVE ANYONE TO COVER HER BUSINESS AND WOULD NOT MAKE IT NO SHOW 07/25/2017 Visit Diagnosis Plan: Cellulitis of left toe Discussio n: Clindamycin and notify if worsening or persistis ICD-9 : 681.10 ICD-10 : L03.032 07/19/2017 Appointment: María Elena Appiah WPtel: [facility] MEDICATION REVIEW 07/19/2017 Patient Education: Patient Medication Summary Completed 07/19/2017 Appointment: María Elena Appiah WPtel: [facility]66[facility] CANCELED 07/04/2017 Visit Diagnosis Plan: Generalized hyperhidrosis Discus ian: CBC, CMP, TSH, free T4 ordered to assess. will review labs. ICD-9 : 780.8 ICD-10 : R61 06/27/2017 Visit Diagnosis Plan: Chronic sinusitis, unspecified D iscussion: Referral sent to dr. albarado in [place] per patient request. patient has been treated multiple times for sinus infections with no recovery. patient was seen by dr sanchez in the past with no interventions. patient has deviated septum which may be affecting her sinuses. 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, including hip Discussion: Shave removal of above lesio n--sent to pathology ICD-9 : 216.7 ICD-10 : D23.72 01/24/2017 Appointment: María Elena Appiah WPtel: [address] [place], [place] [phone] [place] 01/23 confirmed ~sl OFFICE SURGERY 01/24/2017 Patient Education: Patient Medication Summary Completed 01/24/2017 Appointment: Loan Sánchez [address] [place] [address] 01/09 rescheduled~sl RESCHEDULED 01/15/2017 Visit Diagnosis Plan: [...] L81.4 12/13/2016 Appointment: María Elena Appiah WPtel: [address] [place], [place] [phone] 12/12 confirmed ~sl MEDICATION REVIEW 12/13/2016 Patient Education: Patient Medication Summary Completed 12/13/2016 Appointment: María Elena Appiah WPtel: [address] [place], [place] [id number] [place] rescheduled for 12/13/16 at 11am RESCHEDULED 0 12/06/2016 Appointment: María [facility]el[facility] [place] [facility] 11/23/2016 Patient Education: [...] F51.01 11/01/2016 Appointment: María Elena Appiah WPtel: [address] [place], [place] [id number] 10/31 lm `sl 11/01 lm`sl MEDICATION REVIEW 017 Patient Education: Patient Medication Summary Completed 11/01/2016 Referral: Canelo Overton WPtel: [phone] [id number] [place] Referral Initiated 10/30/2016 Visit Diagnosis Plan: [...] Z01.419 10/17/2016 Appointment: María Elena Appiah WPtel: [address] [place], [place] [phone] 10/16 confirmed ~sl PAP 10/17/2016 Patient Education: Patient Medication Summary Completed 10/17/2016 Care Plan: MAMMOGRAM SCREENING LOINC : 2 6347-5 Pending 10/17/2016 Visit Diagnosis Plan: Other seasonal allergic rhinitis Discussion: Decadron/Garamycin Nasal Cressona Mix Too soon for steroid Retry zyrtec 10mg daily ICD-9 : 477.9 ICD-10 : J30.2 10/10/2016 Appointment: María Elena Appiah WPtel: [address] [place] [address] FOLLOW UP 10/10/2016 Patient Education: Patient Medication Summary Completed 10/10/2016 Appointment: María Elena Appiah WPtel: [address] [place] [address] 10/02 reschedule `sl RESCHEDULED 10/02/2016 Visit Plan: See surgery for removal of n ew left arm lesion and right foot lesion Lyrica to use next month for left arm paresthesias Continue current meds Discussed sunscreen/sunblock combo 09/19/2016 Appointment: María Elena Appiah WPtel: [address] [place], [place] [id number] 09/18 confirmed ~sl FOLLOW UP 09/19/2016 Patient Education: Patient Medication Summary Completed 09/19/2016 Patient Education: Patient Medication Summary Completed 09/18/2016 Care Plan: MAMMOGRAM BOTH BREASTS LOINC : 72322-1 Pending 09/18/2016 Visit Plan: Discussed that needs [...] sinuses 08/24/2016 Appointment: María Elena Appiah WPtel: [address] [place] [address] ACUTE ILLNESS 08/24/2016 Patient Education: Patient Medication Summary Completed 08/24/2016 Patient Education: Patient Medication Summary Completed 08/23/2016 Care Plan: MAMMOGRAM SCREENING LOINC : 2 6347-5 Pending 08/23/2016 Visit Plan: Finish doxycycline Add Breo 100/25 1 p BID for 2 weeks If not improving within next 2 days will get CXR 08/16/2016 Appointment: María Elena Appiah WPtel: [address] [place] [address] ACUTE ILLNESS 08/16/2016 Patient Education: Patient Medication Summary Completed 08/16/2016 Visit Plan: Supportive care. Rest, Fluid s, Tylenol/Motrin prn fever or bodyaches. Notify if worsening symptoms. Doxycyline and Prednisone 08/10/2016 Appointment: María Elena Appiah WPtel: [address] [place] [address] 08/09 lm`sl....confirmed-sp FOLLOW UP 09/2015 Patient Education: Patient Medication Summary Completed 08/10/2016 Visit Plan: Saline nasal flushes prn. Ty lenol/Motrin prn headache. Notify if persists/symptoms worsening. Dexamethasone 8mg IM today May use coricedan and mucinex 08/02/2016 Appointment: María Elena Appiah WPtel: [address] [place] [address] ACUTE ILLNESS 08/02/2016 Patient Education: Patient Medication Summary Completed 08/02/2016 Visit Plan: Cryotherapy as above and lef t forearm lesion removal as above with 5-0 punch biopsy and sent to path Return in 10 days for suture removal 08/01/2016 Appointment: María Elena Appiah WPtel: [address] [place] [address] 07/31 confirmed`~sl OFFICE SURGERY 08/01/2016 Patient Education: Patient Medication Summary Completed 08/01/2016 Visit Plan: Stop clindamycin Check CBC, CMP, ESR now/STAT 07/27/2016 Appointment: María Elena Appiahtel: [address] [place] [address] ACUTE ILLNESS 07/27/2016 Patient Education: Patient Medication Summary Completed 07/27/2016 Visit Plan: Update lab and check ABIs to start with Will likely need cardiology evaluation to rule out PVD Clindamycin for 10 days Daily yogurt or probiotic Will return for removal of left arm lesions 07/20/2016 Appointment: María Elena Appiah WPtel: [address] [place] [address] ACUTE ILLNESS 07/20/2016 Patient Education: Patient Medication Summary Completed 07/20/2016 Patient Education: Patient Medication Summary Completed 07/20/2016 Care Plan: MAMMOGRAM BOTH BREASTS LOINC : 36903-5 Pending 07/20/2016 Care Plan: US EXAM CHEST LOINC : 10213-1 Pending 07/20/2016 Visit Plan: Wound culture collected from left great toe Appearance is somewhat staph like Rx as above Wound cleanser and skin care reviewed May need to add oral antibiotic if sores do not heal or continue to reoccur 07/06/2016 Appointment: Loan Sánchez [address] [place] [address] ACUTE ILLNESS 07/06/2016 Patient Education: Patient Medication Summary Completed 07/06/2016 Appointment: María Elena Appiah WPtel: [address] [place] [address] [place] INJECTION 05/25/2016 Patient Education: Patient Medication Summary Completed 05/25/2016 Visit Plan: Saline nasal flushes prn. Ty lenol/Motrin prn headache. Notify if persists/symptoms worsening. Dexamethasone and Rocephin given 04/26/2016 Appointment: María Elena Appiah WPtel: [address] [place] [address] ACUTE ILLNESS 04/26/2016 Patient Education: Patient Medication Summary Completed 04/26/2016 Visit Plan: Check CBC, CMP, TSH, FreeT4, HbA1C, estradiol, lipids in AM 03/02/2016 Appointment: María Elena Appiah WPtel: [address] [place], [place] [id number] 03/01 lm~sl ACUTE ILLNESS 03/02/2016 Patient Education: Patient Medication Summary Completed 03/02/2016 Visit Plan: Exam is nearly normal Needs to be taking daily antihistamine Would prefer to use oral steroids instead of shot but patient insist that oral steroids cause horrible headaches for her Will given kenalog IM instead 02/09/2016 Appointment: Loan Sánchez [address] [place] [address] ACUTE ILLNESS 02/09/2016 Patient Education: Patient Medication Summary Completed 02/09/2016 Visit Plan: Culture urine Macrobid DC xa nax Trial of Ativan 1mg q HS 01/24/2016 Appointment: María Elena Appiah WPtel: [address] [place] [address] ACUTE ILLNESS 01/24/2016 Patient Education: Patient Medication Summary Completed 01/24/2016 Visit Plan: No steroid or rocephin injec tion warranted Can have oral prednisone Continue current home regimen Needs to follow up with Dr Sanchez if problems persist 12/23/2015 Appointment: Loan Sánchez [address] [place] [address] ACUTE ILLNESS 12/23/2015 Patient Education: Patient Medication Summary Completed 12/23/2015 Visit Plan: Saline nasal flushes prn. Ty lenol/Motrin prn headache. Notify if persists/symptoms worsening. Kenalog 40mg IM today 12/08/2015 Appointment: María Elena Appiah WPtel: [address] [place] [address] 12/06 confirmed~sl ACUTE ILLNESS 12/08/2015 Patient Education: Patient Medication Summary Completed 12/08/2015 Appointment: María Elena Appiah WPtel: [address] [place] [address] ACUTE ILLNESS 11/18/2015 Patient Education: Patient Medication Summary Completed 10/11/2015 Appointment: María Elena Appiah WPtel: [address] [place] [address] [place] INJECTION 10/07/2015 Patient Education: Patient Medication Summary Completed 10/07/2015 Visit Plan: Check renal arterial doppler s and ECHO Change amlodopine to lotrel 5/20mg q HS Will need stress test as well Check CMP, uric acid, ESR 10/06/2015 Appointment: María Elena Appiah WPtel: [address] [place] [address] ACUTE ILLNESS 10/06/2015 Patient Education: Patient Medication Summary Completed 10/06/2015 Patient Education: [facility] - Saving AutoInj - Amlodipine Besylate - 18-64 - Dynamic Portal ID Completed 10/06/2015 Appointment: María Elena Appiah WPtel: [address] [place] [address] FOLLOW UP 09/22/2015 Visit Plan: Cephalexin 500 mg PO bid Mery ly topical Mupirocin to lesions on left lateral neck and face Follow-up in one week. Sooner if symptoms worsen 09/14/2015 Appointment: June Flores WPtel: [address] [place] [address] ACUTE ILLNESS 09/14/2015 Patient Education: Patient Medication Summary Completed 09/14/2015 Visit Plan: Change bystolic to bedtime d osing and amlodopine to morning dosing Cryotherapy as above to AKs 09/07/2015 Appointment: María Elena Appiah WPtel: [address] [place] [address] 09/06 appointment made and confirmed ~ FOLLOW UP 09/07/2015 Patient Education: Patient Medication Summary Completed 09/07/2015 Visit Plan: Increase bystolic back to 20 mg daily but will split and take 10mg in AM and 10mg in PM Stress Reducers 08/18/2015 Appointment: María Elena Appiah WPtel: [address] [place] [address] 08/17/15 appt confirmed cn ACUTE ILLNESS 08/18 Patient Education: Patient Medication Summary Completed 08/18/2015 Appointment: María Elena Appiah WPtel: [phone] BP CHECK 07/07/2015 Patient Education: Patient Medication Summary Completed 07/07/2015 Appointment: María Elena Appiah WPtel: [address] [place] [address] BP CHECK 06/24/2015 Patient Education: Patient Medication Summary Completed 06/24/2015 Appointment: María Elena Appiah WPtel: [address] [place] [address] BP CHECK 06/21/2015 Patient Education: Patient Medication Summary Completed 06/21/2015 Visit Plan: Lab discussed Continue curre nt meds and lifestyle modification Recheck lab in 6mos 06/16/2015 Appointment: María Elena Appiah WPtel: [address] [place] [address] 06/15 confirmed FOLLOW UP 06/16/2015 Patient Education: Patient Medication Summary Completed 06/16/2015 Patient Education: Patient Medication Summary Completed 06/15/2015 Visit Plan: Increase cymbalta to 60mg q HS Keep clonidine at current dose Recheck 2weeks Change xanax to klonopin 06/02/2015 Appointment: María Elena Appiah WPtel: [address] [place] [address] 06/02 lm FOLLOW UP 06/02/2015 Patient Education: Patient Medication Summary Completed 06/02/2015 Appointment: María Elena Appiah WPtel: [address] [place] [address] ACUTE ILLNESS 05/24/2015 Visit Plan: Increase clonidine to 0.2mg q HS Add cymbalta 30mg q HS Recheck 2weeks Stress Reducers Check fasting lab Discussed sleep study 05/20/2015 Appointment: María Elena Appiah WPtel: [address] [place] [address] ACUTE ILLNESS 05/20/2015 Patient Education: Patient Medication Summary Completed 05/20/2015 Patient Education: [facility] - Saving Auto[employer]j - Cymbalta - 18-64 - Dynamic Portal ID Completed 05/20/2015 Appointment: María Elena Appiah WPtel: [address] [place] [address] BP CHECK 05/19/2015 Patient Education: Patient Medication Summary Completed 05/19/2015 Visit Plan: Topical Bactroban alternatin g with topical betamethasone Recheck 2weeks 05/10/2015 Appointment: María Elena Appiah WPtel: [address] [place], [place] [id number] 05/07 vm cn...05/07 appt confirmed OFFICE SURGER Y 05/10/2015 Patient Education: Patient Medication Summary Completed 05/10/2015 Referral: Patrick Chandler [facility]el[facility] [address] Referral Initiated 05/04/2015 Visit Plan: Saline nasal flushes prn. Ty lenol/Motrin prn headache. Notify if persists/symptoms worsening. Depomedrol 40mg IM today 03/16/2015 Appointment: María Elena Appiah WPtel: [address] [place] [address] ACUTE ILLNESS 03/16/2015 Patient Education: Patient Medication Summary Completed 03/16/2015 Appointment: María Elena Appiah WPtel: [address] [place], [place] [id number] ER Follow UP 03/09/2015 Visit Plan: Cryotherapy to lesions as ab ove 10/27/2014 Appointment: María Elena Appiah WPtel: [address] [place], [place] [id number] OFFICE SURGERY 10/27/2014 Patient Education: Patient Medication Summary Completed 10/27/2014 Appointment: June Flores WPtel: [address] [place], [place] [id number] ACUTE ILLNESS 09/11/2014 Patient Education: Patient Medication Summary Completed 09/11/2014 Visit Plan: Lab discussed Lipitor 10mg d aily Coenzyme Q-10 400mg daily Vitamin D3 5000u daily Recheck lipids with LFTs in 3mos then fwup 08/31/2014 Appointment: María Elena Appiahtel: [address] [place] [address] 08/28 voicemail FOLLOW UP 08/31/2014 Patient Education: Patient Medication Summary Completed 08/31/2014 Appointment: María Elena Appiah WPtel: [address] [place] [address] LAB 08/27/2014 Appointment: María Elena Appiah WPtel: [address] [place] [address] LAB 08/27/2014 Patient Education: Patient Medication Summary Completed 08/27/2014 Appointment: María Elena Appiah WPtel: [address] [place] [address] ACUTE ILLNESS 07/23/2014 Appointment: María Elena Appiah WPtel: [address] [place] [address] ACUTE ILLNESS 07/21/2014 Patient Education: Patient Medication Summary Completed 07/21/2014 Visit Plan: Kenalog 40mg IM today Contin ue narendra and singulair Add Flonase 07/15/2014 Appointment: María Elena Appiah WPtel: [address] [place] [address] ACUTE ILLNESS 07/15/2014 Appointment: María Elena Appiah WPtel: [address] [place] [address] ACUTE ILLNESS 07/15/2014 Patient Education: Patient Medication Summary Completed 07/15/2014 Visit Plan: Will do metolazone 2.5mg prn with 6 potassium and see if causes as severe cramping Trial of of seroquel XR 50mg q PM with evening meal and let us know how works 05/18/2014 Appointment: María Elena Appiah WPtel: [address] [place] [address] 05/15 left message FOLLOW UP 05/18/2014 Patient Education: Patient Medication Summary Completed 05/18/2014 Appointment: María Elena Appiah WPtel: [address] [place], [place] [phone] LAB 05/14/2014 Patient Education: Patient Medication Summary Completed 05/14/2014 Appointment: María Elena Appiah WPtel: [address] [place], [place] [phone] [place] INJECTION 04/22/2014 Visit Plan: Tisha and Kenluis f today a nd finish abx given from urgent care 04/21/2014 Appointment: María Elena Appiah WPtel: [address] [place] [address] [place] INJECTION 04/21/2014 Patient Education: Patient Medication Summary Completed 04/21/2014 Appointment: June Flores WPtel: [address] [place] [address] ACUTE ILLNESS 03/04/2014 Patient Education: Patient Medication Summary Completed 03/04/2014 Appointment: María Elena Appiah WPtel: [address] [place], [place] [id number] [place] INJECTION 02/27/2014 Patient Education: Patient Medication Summary Completed 02/27/2014 Visit Plan: Cryotherapy as above to all lesions Patient wants to try no meds for insomnia for a while and see how goes 01/13/2014 Appointment: María Elena Appiah WPtel: [address] [place], [place] [phone] OFFICE SURGERY 01/13/2014 Patient Education: Patient Medication Summary Completed 01/13/2014 Visit Plan: Stop Melatonin Stop Soma Tri al of trazadone 75mg q HS See ENT for possible tubes as has had chronic ETD and serous otitis media with numerous steroids 12/24/2013 Appointment: María Elena Appiah WPtel: [address] [place] [address] ACUTE ILLNESS 12/24/2013 Patient Education: Patient Medication Summary Completed 12/24/2013 Visit Plan: Saline nasal flushes prn. Ty lenol/Motrin prn headache. Notify if persists/symptoms worsening. 11/12/2013 Appointment: María Elena Appiah WPtel: [address] [place] [address] ACUTE ILLNESS 11/12/2013 Patient Education: Patient Medication Summary Completed 11/12/2013 Appointment: María Elena Appiah WPtel: [address] [place] [address] ACUTE ILLNESS 10/21/2013 Patient Education: Patient Medication Summary Completed 10/21/2013 Visit Plan: Sleep hygiene and sleep rout ine Melatonin 10mg q HS Support stockings and observe 09/22/2013 Appointment: María Elena Appiah WPtel: [address] [place] [address] ACUTE ILLNESS 09/22/2013 Patient Education: Patient Medication Summary Completed 09/22/2013 Appointment: June Flores WPtel: [address] [place] [address] ACUTE ILLNESS 08/27/2013 Patient Education: Patient Medication Summary Completed 08/27/2013 Visit Plan: Proceed with CT scan of head /neck Proceed with occipital nerve injections Butrans 20mcg patch weekly until can get into see Dr. Mcdonough for injections 08/04/2013 Appointment: María Elena Appiah WPtel: [address] [place] [address] FOLLOW UP 08/04/2013 Patient Education: Patient Medication Summary Completed 08/04/2013 Visit Plan: OMT done Daily neck stretche s, moist heat Increase Celebrex to 200mg BID Add flexeril 07/23/2013 Appointment: María Elena Appiah WPtel: [address] [place] [address] 07/22 voicemail FOLLOW UP 07/23/2013 Patient Education: Patient Medication Summary Completed 07/23/2013 Appointment: María Elena Appiah WPtel: [address] [place] [address] ACUTE ILLNESS 06/23/2013 Patient Education: Patient Medication Summary Completed 06/23/2013 Appointment: María Elena Appiah WPtel: [address] [place] [address] ACUTE ILLNESS 05/26/2013 Patient Education: Patient Medication Summary Completed 05/26/2013 Visit Plan: Decrease clonidine to 0.1mg TID If BP remains stable consider decreasing amlodopine Prednisone for 5 days BP check in 1mo 04/16/2013 Appointment: María Elena Appiah WPtel: [address] [place] [address] 04/14 pt called and confirmed appt FOLLOW UP 04/16/2013 Patient Education: Patient Medication Summary Completed 04/16/2013 Appointment: María Elena Appiah WPtel: [address] [place] [address] ACUTE ILLNESS 03/05/2013 Patient Education: Patient Medication Summary Completed 03/05/2013 Visit Plan: Pt has MARIA ELENA on with Dr. Mcdonough Continue Butrans patch Refill Hydrocodone early tomorrow 12/23/2012 Appointment: María Elena Appiah WPtel: [address] [place] [address] FOLLOW UP 12/23/2012 Patient Education: Patient Medication Summary Completed 12/23/2012 Appointment: Lashawn Eckert WPtel: [address] [place] [address] ACUTE ILLNESS 12/16/2012 Patient Education: Patient Medication Summary Completed 12/16/2012 Visit Plan: Proceed with updated MRI of LS spine Continue gabapentin and add soma and diclofenac Will likely need to go for another epidural 12/09/2012 Appointment: María Elena Appiah WPtel: [address] [place] [address] ACUTE ILLNESS 12/09/2012 Patient Education: Patient Medication Summary Completed 12/09/2012 Visit Plan: Injection as above Finish me drol dose pack Chiropracter this afternoon 12/04/2012 Appointment: María Elena Appiah WPtel: [address] [place] [address] ACUTE ILLNESS 12/04/2012 Patient Education: Patient Medication Summary Completed 12/04/2012 Appointment: Mary Tillman WPtel: [address] [place] [address] FOLLOW UP 11/22/2012 Patient Education: Patient Medication Summary Completed 11/22/2012 Appointment: María Elena Appiah WPtel: [address] [place] [address] ACUTE ILLNESS 11/21/2012 Patient Education: Patient Medication Summary Completed 11/21/2012 Appointment: María Elena Appiah WPtel: [address] [place] [address] BP CHECK 11/07/2012 Patient Education: Patient Medication Summary Completed 11/07/2012 Visit Plan: reports extra clonidine and extra amlodipine and extra alprazalam. extra Ketolorac and promethazine last night. Bystolic 10 mg QAM and will continue all other blood pressure meds. Pt. encouraged to rest and hydrate. Discussed stroke and [place] symptoms. Pt. instructed to seek ER eval if symptoms worsen or headache persists. Pt. agrees to ER eval/EMS transport if symptoms worsen. BP re-check. 10/29/2012 Appointment: Lashawn Eckert WPtel: [address] [place] [address] ACUTE ILLNESS 10/29/2012 Patient Education: Patient Medication Summary Completed 10/29/2012 Appointment: María Elena Appiah WPtel: [address] [place] [address] ACUTE ILLNESS 10/14/2012 Patient Education: Patient Medication Summary Completed 10/14/2012 Appointment: María Elena Appiah WPtel: [address] [place] [address] UA 09/27/2012 Patient Education: Patient Medication Summary Completed 09/27/2012 Appointment: María Elena Appiah WPtel: [address] [place], [place] [id number] ACUTE ILLNESS 09/25/2012 Patient Education: Patient Medication Summary Completed 09/25/2012 Appointment: María Elena Appiah WPtel: [address] [place], [place] [id number] BP CHECK 09/24/2012 Appointment: María Elena Appiah WPtel: [address] [place], [place] [id number] ACUTE ILLNESS 08/29/2012 Patient Education: Patient Medication Summary Completed 08/29/2012 Visit Plan: Cryotherapy as above See Karlos m for right ear lesion--probable MOHs procedure Increase amlodopine to 10mg daily 08/12/2012 Appointment: María Elena Appiah WPtel: [address] [place] [address] OFFICE SURGERY 08/12/2012 Patient Education: Patient Medication Summary Completed 08/12/2012 Appointment: María Elena Appiah WPtel: [address] [place] [address] 05/03 vm on pt phone...pt called on 04/11 3 pt called wanting in had no one cancel so could not get her in for an appt sooner than 05/06. ACUTE ILLNESS 05/06/2012 Patient Education: Patient Medication Summary Completed 05/06/2012 Visit Plan: Pt wants to hold on any furt her sleep medications 04/03/2012 Appointment: María Elena Appiah WPtel: [address] [place], [place] [id number] FOLLOW UP 04/03/2012 Patient Education: Patient Medication Summary Completed 04/03/2012 Appointment: María Elena Appiah WPtel: [address] [place], [place] [id number] FOLLOW UP 03/19/2012 Patient Education: Patient Medication Summary Completed 03/19/2012 Appointment: María Elena Appiah WPtel: [address] [place] [address] BP CHECK 02/22/2012 Patient Education: Patient Medication Summary Completed 02/22/2012 Appointment: María Elena Appiah WPtel: [address] [place] [address] BP CHECK 02/21/2012 Patient Education: Patient Medication Summary Completed 02/21/2012 Visit Plan: Doxycycline and bactroban fo r foot Supportive care on ankles and knees Add norvasc for BP 02/20/2012 Appointment: María Elena Appiah WPtel: [address] [place] [address] ER Follow UP 02/20/2012 Patient Education: Patient Medication Summary Completed 02/20/2012 Appointment: María Elena Appiah WPtel: [address] [place] [address] ACUTE ILLNESS 01/30/2012 Patient Education: Patient Medication Summary Completed 01/30/2012 Appointment: María Elena Appiah WPtel: [address] [place] [address] ACUTE ILLNESS 01/24/2012 Patient Education: Patient Medication Summary Completed 01/24/2012 Visit Plan: Daily back stretches, moist heat, Biofreeze prn OMT done 01/10/2012 Appointment: María Elena Appiah WPtel: [address] [place] [address] ACUTE ILLNESS 01/10/2012 Patient Education: Patient Medication Summary Completed 01/10/2012 Appointment: María Elena Appiah WPtel: [address] [place] [address] [place] FOLLOW UP 12/11/2011 Patient Education: Patient Medication Summary Completed 12/11/2011 Appointment: María Elena Appiah WPtel: [address] [place] [address] ACUTE ILLNESS 11/09/2011 Patient Education: Patient Medication Summary Completed 11/09/2011 Appointment: María Elena Appiahtel: [address] [place] [address] ACUTE ILLNESS 09/13/2011 Patient Education: Patient Medication Summary Completed 09/13/2011 Visit Plan: Check CBC, TSH, Free T4, CMP , ESR, Vit D, B12 now Start Prednisone today 08/31/2011 Appointment: María Elena Appiahtel: [address] [place] [address] ACUTE ILLNESS 08/31/2011 Patient Education: Patient Medication Summary Completed 08/31/2011 Appointment: María Elena Appiahtel: [address] [place] [address] [place] INJECTION 07/20/2011 Patient Education: Patient Medication Summary Completed 07/20/2011 Visit Plan: Continue current meds Monite r BP Cont stretches from PT 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 07/06/2011 Appointment: María Elena Appiahtel: [address] [place] [address] FOLLOW UP 07/06/2011 Patient Education: Patient Medication Summary Completed 07/06/2011 Appointment: María Elena Appiahtel: [address] [place] [address] BP CHECK 06/06/2011 Patient Education: Patient Medication Summary Completed 06/06/2011 Visit Plan: Add Bystolic at 2.5mg QAM Ad d Robaxin 750mg 2 po q HS BP check in 2wks 05/22/2011 Appointment: María Elena Appiahtel: [address] [place] [address] [place] FOLLOW UP 05/22/2011 Patient Education: Patient Medication Summary Completed 05/22/2011 Appointment: Marí aElena Appiahtel: [address] [place] [address] ER Follow UP 05/09/2011 Patient Education: Patient Medication Summary Completed 05/09/2011 Appointment: María Elena Appiahtel: [address] [place] [address] FOLLOW UP 02/22/2011 Visit Plan: Rx written for Hydrocodone 1 0/325mg #240 See Ortho 02/14/2011 Appointment: María Elena Appiah WPtel: [address] [place] [address] [place] OMT 02/14/2011 Patient Education: Patient Medication [...] lab work. 02/03/2011 Appointment: Lashawn Eckert WPtel: [address] [place] [address] ACUTE ILLNESS 02/03/2011 Patient Education: Patient Medication Summary Completed 02/03/2011 Visit Plan: OMT done Cont daily stretche s 01/31/2011 Appointment: María Elena Appiah WPtel: [address] [place] [address] ACUTE ILLNESS 01/31/2011 Patient Education: Patient Medication Summary Completed 01/31/2011 Visit Plan: Continue pain meds OMT done Proceed with PT No work this summer01/25/2011 Appointment: María Elena Appiah WPtel: [address] [place] [address] ACUTE ILLNESS 01/25/2011 Patient Education: Patient Medication Summary Completed 01/25/2011 Visit Plan: Start PT Long discussion abo ut getting pain meds from only us and can only have max of 4grams of tylenol per day Change to Hydrocodone 10/325mg 1- 2 po TID prn pain--#180 called to Radha 01/18/2011 Appointment: María Elena Appiahtel: [address] [place] [address] FOLLOW UP 01/18/2011 Patient Education: Patient Medication Summary Completed 01/18/2011 Visit Plan: Daily back stretches, moist heat, Biofreeze prn 11/29/2010 Appointment: María Elena Appiah WPtel: [address] [place] [address] ER Follow UP 11/29/2010 Patient Education: Patient Medication Summary Completed 11/29/2010 Visit Plan: Saline nasal flushes prn. Ty lenol/Motrin prn headache. Notify if persists/symptoms worsening. Finish augmentin Add Medrol Dose Pack 10/10/2010 Appointment: María Elena Appiahtel: [address] [place] [address] ACUTE ILLNESS 10/10/2010 Patient Education: Patient Medication Summary Completed 10/10/2010 Visit Plan: Cryotherapy x3 to multiple l esions on both forearms 07/19/2010 Appointment: María Elena Appiahtel: [address] [place] [address] OFFICE SURGERY 07/19/2010 Patient Education: Patient Medication Summary Completed 07/19/2010 Appointment: María Elena Appiahtel: [address] [place], [place] [id number] BP CHECK 07/06/2010 Patient Education: Patient Medication Summary Completed 07/06/2010 Appointment: María Elena Appiahtel: [address] [place] [address] BP CHECK 06/30/2010 Patient Education: Patient Medication Summary Completed 06/30/2010 Appointment: María Elena Appiahtel: [address] [place] [address] BP CHECK 06/20/2010 Patient Education: Patient Medication Summary Completed 06/20/2010 Visit Plan: Change Diovan to Exforge 160 /5mg QD OMT done to thoracics BP check in 2wks 06/07/2010 Appointment: María Elena Appiah WPtel: [address] [place], [place] [id number] FOLLOW UP 06/07/2010 Patient Education: Patient Medication Summary Completed 06/07/2010 Appointment: María Elena Appiah WPtel: [address] [place], [place] [id number] BP CHECK 06/03/2010 Patient Education: Patient Medication Summary Completed 06/03/2010 Appointment: María Elena Appiah WPtel: [address] [place], [place] [id number] BP CHECK 06/01/2010 Patient Education: Patient Medication Summary Completed 06/01/2010 Visit Plan: Irritated skin tags to left neck x2 excised at base with scissors and base cauterized 05/30/2010 Appointment: María Elena Appiah WPtel: [address] [place] [address] OFFICE SURGERY 05/30/2010 Patient Education: Patient Medication Summary Completed 05/30/2010 Visit Plan: Saline nasal flushes prn. Ty lenol/Motrin prn headache. Notify if persists/symptoms worsening. Restart Nasonex Has allergy testing set for May 25 04/27/2010 Appointment: María Elena Appiah WPtel: [address] [place], [place] [id number] ACUTE ILLNESS 04/27/2010 Patient Education: Patient Medication Summary Completed 04/27/2010 Visit Plan: Saline nasal flushes prn. Ty lenol/Motrin prn headache. Notify if persists/symptoms worsening. Omnaris BID plus injections 04/05/2010 Appointment: María Elena Appiah WPtel: [address] [place] [address] ACUTE ILLNESS 04/05/2010 Patient Education: Patient Medication Summary Completed 04/05/2010 Visit Plan: Saline nasal flushes prn. Ty lenol/Motrin prn headache. Notify if persists/symptoms worsening. 03/09/2010 Appointment: María Elena Appiah WPtel: [address] [place] [address] ACUTE ILLNESS 03/09/2010 Patient Education: Patient Medication Summary Completed 03/09/2010 Visit Plan: Cont Clonidine as is Cont Pr emarin Fwup with surgery as scheduled 03/03/2010 Appointment: María Elena Appiah WPtel: [address] [place] [address] FOLLOW UP 03/03/2010 Patient Education: Patient Medication Summary Completed 03/03/2010 Visit Plan: Check Pelvic US now Dukee tacho Sal C vs Hysterectomy 01/17/2010 Appointment: María Elena Appiah WPtel: [address] [place] [address] ACUTE ILLNESS 01/17/2010 Patient Education: Patient Medication Summary Completed 01/17/2010 Visit Plan: Check fasting lab and schedu le Mammogram 2gm Na Diet Trial of Ambien 10mg qhs Fwup pending lab results 12/27/2009 Appointment: María Elena Appiah WPtel: [address] [place] [address] [place] ESTABLISHED PATIENT 12/27/2009 Patient Education: Patient Medication Summary Completed 12/27/2009 Referral: Canelo Overton WPtel: [address] [place] [id number] [place] Referral Initiated Referral: Philipp Flores WPtel: [address] [id number] [place] Referral Appointment Requested Instructions Comment . [...] to rest and hydrate. Discussed stroke and [place] symptoms. Pt. instructed to seek ER eval [...]
--- OUTSIDE RECORDS SUMMARY | 2020-03-13 04:36 | XMS REPORT | CCD ---
Author Author Gale Appiah D.O. Organization [facility] Address [address] [place] [phone] Phone Care Team Providers Care Prefitter Name Role Phone María Elena Appiah D.O., PP Unavailable CCM Unavailable Summary Purpose Interface Exchange Insurance Providers Payer name Policy type / Coverage type Covered republican ID Effective Begin Date Effective End Date [facility] Commercial Insurance [id number] Unknown Family History Family History data not found Social History Social History Element Codes Description Effective Dates Tobacco history SNOMED CT: 234096231 Never smoker 05/22/2011 Allergies, Adverse Reactions, Alerts Substance Reaction Codes Entered Date Inactivated Date Status * NO KNOWN FOOD ALLERGIES Unknown 12/27/2009 No Inactiv e Date Active _ Unknown 03/10/2013 No Inactive Date Active _ Unknown 12/27/2009 No Inactive Date Active SULFA (SULFONAMIDE ANTIBIOTICS) Unknown 12/27/2009 No I nactive Date Active Problems Condition Codes Effective Dates Condition Status Essential (primary) hypertension ICD-9: 401.9 ICD-10: I10 05/14/2014 Active Type 2 diabetes mellitus with hyperglycemia ICD-9: 250 .02 ICD-10: E11.65 12/18/2017 Active Ingrowing nail ICD-9: 703.0 ICD-10: L60.0 [...] Start Date Stop Date Status Fill Instructions Lipitor 10 mg tablet RxNorm: 391067 TAKE ONE TABLET BY MOUTH DAILY 01/23/2020 No Stop Date Active Januvia 100 mg tablet RxNorm: 565552 TAKE ONE TABLET BY MOUTH DAILY 01/22/2020 No Stop Date Active gabapentin 300 mg capsule RxNorm: 759253 TAKE ONE CAPSU LE BY MOUTH EVERY NIGHT AT BEDTIME 01/22/2020 No Stop Date Active allopurinol 300 mg tablet RxNorm: 359718 TAKE ONE TABLET BY LOPEZ TH DAILY 01/22/2020 No Stop Date Active Klor-Con 8 mEq tablet,extended release RxNorm: 598504 T FARRUKH ONE TABLET BY MOUTH TWICE A DAY 01/22/2020 No Stop Date Active doxepin 25 mg capsule RxNorm: 1498165 TAKE ONE CAPSULE B Y MOUTH EVERY NIGHT AT BEDTIME NEEDED FOR SLEEP 01/22/2020 No Stop Date Active glimepiride 4 mg tablet RxNorm: 734225 1 Tablet(s) Oral two times a day replaces 2mg dose 01/13/2020 04/12/2020 Active lisinopril 40 mg tablet RxNorm: 774581 1 Tablet(s) Oral QD repl aces 20mg dose 01/13/2020 04/12/2020 Active hydrocodone 10 mg-acetaminophen 325 mg tablet RxNorm: 941261 1-2 Tablet(s) Oral three times a day as needed for pain 01/12/2020 No Stop Date Active cyclobenzaprine 10 mg tablet RxNorm: 309117 TAKE ONE TA BLET BY MOUTH THREE TIMES A DAY NEEDED FOR MUSCLE SPASMS 01/05/2020 No Stop Date Active triamterene 75 mg-hydrochlorothiazide 50 mg tablet RxNorm: 3 09417 TAKE ONE TABLET BY MOUTH DAILY 12/29/2019 No Stop Date Active Klor-Con 8 mEq tablet,extended release RxNorm: 084683 T FARRUKH ONE TABLET BY MOUTH TWICE A DAY 12/19/2019 01/21/2020 Inactive allopurinol 300 mg tablet RxNorm: 730623 TAKE ONE TABLET BY LOPEZ TH DAILY 12/19/2019 01/21/2020 Inactive glimepiride 2 mg tablet RxNorm: 426884 TAKE ONE TABLET BY MOUTH TWICE A DAY 12/19/2019 01/12/2020 Inactive hydrocodone 10 mg-acetaminophen 325 mg tablet RxNorm: 722789 1-2 Tablet(s) Oral three times a day as needed for pain 12/10/2019 01/11/2020 Inactive Januvia 100 mg tablet RxNorm: 744650 1 Tablet(s) Oral QD 11/20/2019 0 11/20/2019 Inactive glimepiride 2 mg tablet RxNorm: 030534 1 Tablet(s) Oral two sawyer es a day 11/20/2019 12/18/2019 Inactive cyclobenzaprine 10 mg tablet RxNorm: 107204 TAKE ONE TA BLET BY MOUTH THREE TIMES A DAY NEEDED FOR MUSCLE SPASMS 11/17/2019 01/04/2020 Inactive doxepin 25 mg capsule RxNorm: 3925509 TAKE ONE CAPSULE B Y MOUTH EVERY NIGHT AT BEDTIME NEEDED FOR SLEEP 11/16/2019 01/21/2020 Inactive Klor-Con 8 mEq tablet,extended release RxNorm: 543433 T FARRUKH ONE TABLET BY MOUTH TWICE A DAY 11/16/2019 12/18/2019 Inactive hydrocodone 10 mg-acetaminophen 325 mg tablet RxNorm: 736558 1-2 Tablet(s) Oral three times a day as needed for pain 11/10/2019 12/09/2019 Inactive cyclobenzaprine 10 mg tablet RxNorm: 191352 TAKE ONE TA BLET BY MOUTH THREE TIMES A DAY NEEDED FOR MUSCLE SPASMS 10/23/2019 11/16/2019 Inactive duloxetine 60 mg capsule,delayed release RxNorm: 006428 1 Capsu le(s) Oral QD 10/17/2019 04/13/2020 Active celecoxib 200 mg capsule RxNorm: 404380 1 Capsule(s) Or al two times a day as needed for pain 10/17/2019 01/14/2020 Inactive Singulair 10 mg tablet RxNorm: 517467 1 Tablet(s) Oral QD 10/17/2019 04/14/2020 Active metoprolol tartrate 100 mg tablet RxNorm: 618118 1 Tabl et(s) Oral two times a day 10/17/2019 04/13/2020 Active clonidine HCl 0.1 mg tablet RxNorm: 160120 1 Tablet(s) Oral fou r times a day 10/17/2019 04/13/2020 Active Steglatro 15 mg tablet RxNorm: 7523426 1 Tablet(s) Oral QD 10/17/19 20 No Stop Date Active lisinopril 20 mg tablet RxNorm: 296939 1 Tablet(s) Oral QD 10/17/19 20 01/12/2020 Inactive gabapentin 300 mg capsule RxNorm: 536389 1 Capsule(s) O ral every night at bedtime 10/17/2019 01/15/2020 Inactive Klor-Con 8 mEq tablet,extended release RxNorm: 279218 1 Tablet(s) Oral two times a day 10/17/2019 11/15/2019 Inactive Januvia 100 mg tablet RxNorm: 525052 1 Tablet(s) Oral QD 10/17/2019 0 01/12/2020 Inactive Lipitor 10 mg tablet RxNorm: 653999 1 Tablet(s) Oral QD 10/17/2019 Inactive Glyxambi 25 mg-5 mg tablet RxNorm: 7302469 1 Tablet(s) Oral QD 01/202010/16/2019 Inactive Patient will bring in copay discount card as well Glyxambi 25 mg-5 mg tablet RxNorm: 4421807 1 Tablet(s) Oral QD 01/202010/14/2019 Inactive Patient will bring in copay discount card as well Keflex 500 mg capsule RxNorm: 375874 1 Capsule(s) Oral two time s a day 10/07/2019 10/14/2019 Inactive Premarin 1.25 mg tablet RxNorm: 232694 1 Tablet(s) Oral QD 09/30/19 20 06/25/2020 Active hydrocodone 10 mg-acetaminophen 325 mg tablet RxNorm: 329818 1-2 Tablet(s) Oral three times a day as needed for pain 09/30/2019 09/30/2019 Inactive baclofen 10 mg tablet RxNorm: 707322 TAKE ONE TABLET BY MOUTH THREE TIMES A DAY NEEDED 09/19/2019 No Stop Date Active gabapentin 300 mg capsule RxNorm: 808859 TAKE ONE CAPSU LE BY MOUTH EVERY NIGHT AT BEDTIME 09/19/2019 10/16/2019 Inactive Klor-Con 8 mEq tablet,extended release RxNorm: 961669 T FARRUKH ONE TABLET BY MOUTH TWICE A DAY 1 Tablet(s) Oral two times a day 09/19/2019 10/16/2019 Renu ctive hydrocodone 10 mg-acetaminophen 325 mg tablet RxNorm: 410390 1-2 Tablet(s) Oral three times a day as needed for pain 09/19/2019 09/29/2019 Inactive duloxetine 60 mg capsule,delayed release RxNorm: 368831 TAKE ONE CAPSULE BY MOUTH DAILY 09/11/2019 10/16/2019 Inactive Lipitor 10 mg tablet RxNorm: 768322 TAKE ONE TABLET BY MOUTH AT BEDTIME 09/11/2019 10/16/2019 Inactive lisinopril 20 mg tablet RxNorm: 132256 TAKE ONE TABLET BY MOUTH DAILY .... THIS REPLACE 10MG TABLETS 09/11/2019 10/16/2019 Inactive triamterene 75 mg-hydrochlorothiazide 50 mg tablet RxNorm: 3 19473 TAKE ONE TABLET BY MOUTH DAILY 09/11/2019 12/28/2019 Inactive allopurinol 300 mg tablet RxNorm: 766266 TAKE ONE TABLET BY LOPEZ TH DAILY 09/11/2019 12/18/2019 Inactive celecoxib 200 mg capsule RxNorm: 973061 TAKE ONE CAPSUL E BY MOUTH TWICE A DAY NEEDED FOR PAIN 09/11/2019 10/16/2019 Inactive clonidine HCl 0.1 mg tablet RxNorm: 347037 TAKE ONE TAB LET BY MOUTH FOUR TIMES A DAY 09/11/2019 10/16/2019 Inactive doxepin 25 mg capsule RxNorm: 6324511 1 Capsule(s) Oral every night at bedtime as needed for sleep 08/21/2019 11/15/2019 Inactive hydrocodone 10 mg-acetaminophen 325 mg tablet RxNorm: 185234 1-2 Tablet(s) PO TID 08/12/2019 09/29/2019 Inactive as needed for pa in - Previous quantity #240, will start dosing for #180 in April 2011 per Doctor Td. Medrol (Dustin) 4 mg tablets in a dose pack RxNorm: 104522 Tablet(s) Oral As Directed 07/21/2019 09/29/2019 Inactive Premarin 1.25 mg tablet RxNorm: 216256 1 Tablet(s) Oral QD 07/02/20 19 09/29/2019 Inactive hydrocodone 10 mg-acetaminophen 325 mg tablet RxNorm: 602242 1-2 Tablet(s) PO TID 07/01/2019 08/11/2019 Inactive as needed for pa in - Previous quantity #240, will start dosing for #180 in April 2011 per Doctor Td. gabapentin 300 mg capsule RxNorm: 683793 1 Capsule(s) PO QHS 201809/18/2019 Inactive celecoxib 200 mg capsule RxNorm: 645292 1 Capsule(s) Or al two times a day as needed for pain 06/27/2019 06/27/2019 Inactive doxepin 25 mg capsule RxNorm: 0093464 TAKE ONE CAPSULE B Y MOUTH EVERY NIGHT AT BEDTIME NEEDED FOR SLEEP 06/24/2019 08/20/2019 Inactive Singulair 10 mg tablet RxNorm: 641925 TAKE ONE TABLET BY MOUTH JOSÉ Y 06/24/2019 10/16/2019 Inactive furosemide 40 mg tablet RxNorm: 819513 TAKE ONE TABLET BY MOUTH EVERY MORNING NEEDED FOR EDEMA . TAKE WITH POTASSIUM 06/24/2019 01/12/2020 Inactive lisinopril 20 mg tablet RxNorm: 105683 TAKE ONE TABLET BY MOUTH DAILY .... THIS REPLACE 10MG TABLETS 06/24/2019 09/10/2019 Inactive nystatin-triamcinolone 100,000 unit/g-0.1 % topical cream Rx Norm: 4183641 1 Application Topical two times a day 06/12/2019 06/19/2019 Inactive apply BID for 1 week nystatin-triamcinolone 100,000 unit/g-0.1 % topical cream Rx Norm: 5078657 1 Application Topical two times a day 06/12/2019 06/11/2019 Inactive apply BID for 1 week hydrocodone 10 mg-acetaminophen 325 mg tablet RxNorm: 825985 1-2 Tablet(s) PO QID as needed for pain MUST LAST 30 DAYS 05/28/2019 06/26/2019 Inactiv e (Response to an electronic controlled substance refill request - RxReferenceNumber: [id number]) baclofen 20 mg tablet RxNorm: 833187 1 Tablet(s) PO TID as needed for muscle spasm 05/19/2019 05/27/2019 Inactive gabapentin 300 mg capsule RxNorm: 941739 1 Capsule(s) PO QHS 201805/27/2019 Inactive lisinopril 20 mg tablet RxNorm: 986184 1 Tablet(s) PO Q D TAKE ONE TABLET BY MOUTH DAILY, REPLACES 10 MG DOSE 05/19/2019 06/23/2019 Inactive doxepin 25 mg capsule RxNorm: 0230406 TAKE ONE CAPSULE B Y MOUTH EVERY NIGHT AT BEDTIME NEEDED FOR SLEEP 05/16/2019 06/14/2019 Inactive lisinopril 20 mg tablet RxNorm: 619109 TAKE ONE TABLET BY MOUTH DAILY, REPLACES 10 MG DOSE 05/16/2019 05/18/2019 Inactive Singulair 10 mg tablet RxNorm: 957034 TAKE ONE TABLET BY MOUTH JOSÉ Y 05/16/2019 06/14/2019 Inactive gabapentin 300 mg capsule RxNorm: 994573 1 Capsule(s) PO QHS 201805/04/2019 Inactive estropipate 1.5 mg tablet RxNorm: 822885 1 Tablet(s) PO QD 05/05/2005/27/2019 Inactive estropipate 1.5 mg tablet RxNorm: 302739 1 Tablet(s) PO QD 05/05/2005/04/2019 Inactive gabapentin 300 mg capsule RxNorm: 402218 1 Capsule(s) PO QHS 201805/18/2019 Inactive hydrocodone 10 mg-acetaminophen 325 mg tablet RxNorm: 289196 1-2 Tablet(s) PO QID as needed for pain MUST LAST 30 DAYS 04/25/2019 05/24/2019 Inactiv e (Response to an electronic controlled substance refill request - RxReferenceNumber: [id number]) cyclobenzaprine 10 mg tablet RxNorm: 001414 TAKE ONE TA BLET BY MOUTH THREE TIMES A DAY NEEDED FOR MUSCLE SPASMS 04/24/2019 05/18/2019 Inactive metoprolol tartrate 100 mg tablet RxNorm: 145837 TAKE O NE TABLET BY MOUTH TWICE A DAY 04/24/2019 10/16/2019 Inactive Lyrica 75 mg capsule RxNorm: 266213 1 Capsule(s) PO QHS 03/25/2019 Inactive duloxetine 60 mg capsule,delayed release RxNorm: 815699 TAKE ONE CAPSULE BY MOUTH DAILY 03/21/2019 05/19/2019 Inactive triamterene 75 mg-hydrochlorothiazide 50 mg tablet RxNorm: 3 89595 TAKE ONE TABLET BY MOUTH DAILY 03/21/2019 05/19/2019 Inactive Klor-Con 8 mEq tablet,extended release RxNorm: 277143 T FARRUKH ONE TABLET BY MOUTH TWICE A DAY 03/21/2019 09/18/2019 Inactive Lipitor 10 mg tablet RxNorm: 540508 TAKE ONE TABLET BY MOUTH AT BEDTIME 03/21/2019 09/10/2019 Inactive clonidine HCl 0.1 mg tablet RxNorm: 042798 TAKE ONE TAB LET BY MOUTH FOUR TIMES A DAY 03/21/2019 05/19/2019 Inactive allopurinol 300 mg tablet RxNorm: 520504 TAKE ONE TABLET BY LOPEZ TH DAILY 03/21/2019 05/19/2019 Inactive hydrocodone 10 mg-acetaminophen 325 mg tablet RxNorm: 919638 1-2 Tablet(s) PO QID as needed for pain MUST LAST 30 DAYS 02/28/2019 03/29/2019 Inactiv e (Response to an electronic controlled substance refill request - RxReferenceNumber: [id number]) furosemide 40 mg tablet RxNorm: 708959 TAKE ONE TABLET BY MOUTH EVERY MORNING NEEDED FOR EDEMA . TAKE WITH POTASSIUM 02/21/2019 03/22/2019 Inactive cyclobenzaprine 10 mg tablet RxNorm: 660442 TAKE ONE TA BLET BY MOUTH THREE TIMES A DAY NEEDED FOR MUSCLE SPASMS 02/21/2019 04/21/2019 Inactive lisinopril 20 mg tablet RxNorm: 559433 TAKE ONE TABLET BY MOUTH DAILY, REPLACES 10 MG DOSE 02/21/2019 05/15/2019 Inactive doxepin 25 mg capsule RxNorm: 0173392 TAKE ONE CAPSULE B Y MOUTH EVERY NIGHT AT BEDTIME NEEDED FOR SLEEP 02/21/2019 05/15/2019 Inactive nystatin 100,000 unit/gram topical cream RxNorm: 321037 APPLY TO AFFECTED AREA(S) TWO TIMES A DAY 02/21/2019 03/22/2019 Inactive estradiol 1 mg tablet RxNorm: 340637 2 Tablet(s) PO QD replaces premarin 01/22/2019 05/04/2019 Inactive lisinopril 20 mg tablet RxNorm: 866918 TAKE ONE TABLET BY MOUTH DAILY, REPLACES 10 MG DOSE 01/20/2019 02/18/2019 Inactive cyclobenzaprine 10 mg tablet RxNorm: 394332 TAKE ONE TA BLET BY MOUTH THREE TIMES A DAY NEEDED FOR MUSCLE SPASMS 01/20/2019 02/18/2019 Inactive metoprolol tartrate 100 mg tablet RxNorm: 894182 TAKE O NE TABLET BY MOUTH TWICE A DAY 01/20/2019 02/18/2019 Inactive cyclobenzaprine 10 mg tablet RxNorm: 731754 TAKE ONE TA BLET BY MOUTH THREE TIMES A DAY NEEDED FOR MUSCLE SPASMS 12/19/2018 01/17/2019 Inactive lisinopril 20 mg tablet RxNorm: 325112 TAKE ONE TABLET BY MOUTH DAILY, REPLACES 10 MG DOSE 12/19/2018 01/17/2019 Inactive duloxetine 60 mg capsule,delayed release RxNorm: 457973 TAKE ONE CAPSULE BY MOUTH DAILY 12/19/2018 01/17/2019 Inactive Lipitor 10 mg tablet RxNorm: 812846 TAKE ONE TABLET BY MOUTH AT BEDTIME 12/19/2018 01/17/2019 Inactive cyclobenzaprine 10 mg tablet RxNorm: 406838 1 Tablet(s) PO TID as needed for muscle spasm 11/19/2018 12/18/2018 Inactive Singulair 10 mg tablet RxNorm: 576421 1 Tablet(s) PO QD 11/19/2018 Inactive lisinopril 20 mg tablet RxNorm: 549828 TAKE ONE TABLET BY MOUTH DAILY, REPLACES 10 MG DOSE 11/15/2018 12/18/2018 Inactive hydrocodone 10 mg-acetaminophen 325 mg tablet RxNorm: 677774 1-2 Tablet(s) PO QID as needed for pain MUST LAST 30 DAYS 11/13/2018 12/12/2018 Inactiv e (Response to an electronic controlled substance refill request - RxReferenceNumber: [id number]) nystatin 100,000 unit/gram topical cream RxNorm: 244260 APPLY TO AFFECTED AREA(S) TWO TIMES A DAY 10/23/2018 11/06/2018 Inactive lisinopril 20 mg tablet RxNorm: 779807 1 Tablet(s) PO QD replac es 10mg dose 10/18/2018 11/14/2018 Inactive hydrocodone 10 mg-acetaminophen 325 mg tablet RxNorm: 750152 1-2 Tablet(s) QID as needed for pain MUST LAST 30 DAYS 10/08/2018 11/06/2018 Inactive (Response to an electronic controlled substance refill request - RxReferenceNumber: [id number]) lisinopril 10 mg tablet RxNorm: 290520 1 Tablet(s) PO QD 10/03/2018 0 01/21/2019 Inactive Celebrex 200 mg capsule RxNorm: 270678 TAKE ONE CAPSULE BY MOUT H TWICE A DAY 09/30/2018 05/04/2019 Inactive cyclobenzaprine 10 mg tablet RxNorm: 088810 TAKE ONE TA BLET BY MOUTH THREE TIMES A DAY NEEDED FOR MUSCLE SPASMS 09/30/2018 11/18/2018 Inactive doxepin 25 mg capsule RxNorm: 7710934 TAKE ONE CAPSULE B Y MOUTH EVERY NIGHT AT BEDTIME NEEDED 09/05/2018 10/16/2018 Inactive omeprazole 40 mg capsule,delayed release RxNorm: 250684 TAKE ONE CAPSULE BY MOUTH DAILY 09/05/2018 01/21/2019 Inactive furosemide 40 mg tablet RxNorm: 593596 TAKE ONE TABLET BY MOUTH EVERY MORNING NEEDED FOR EDEMA . TAKE WITH POTASSIUM 09/05/2018 11/03/2018 Inactive phentermine 37.5 mg tablet RxNorm: 660677 1 Tablet(s) PO QAM 201701/21/2019 Inactive doxepin 25 mg capsule RxNorm: 4570044 1 Capsule(s) PO QH S as needed for sleep TAKE ONE CAPSULE BY MOUTH EVERY NIGHT AT BEDTIME NEEDED 08/27/2018 09/04/2018 Inactive Keflex 500 mg capsule RxNorm: 221863 1 Capsule(s) PO TID 08/09/2018 1 10/19/2017 Inactive Diflucan 100 mg tablet RxNorm: 271132 1 Tablet(s) PO QD 08/09/2018 Inactive Premarin 1.25 mg tablet RxNorm: 718271 2 Tablet(s) PO QD 08/09/2018 0 05/04/2019 Inactive Zofran ODT 4 mg disintegrating tablet RxNorm: 855371 1 Tablet(s) PO Q4H as needed for nausea 08/09/2018 01/21/2019 Inactive metoprolol tartrate 100 mg tablet RxNorm: 144812 TAKE O NE TABLET BY MOUTH TWICE A DAY 2018 10/04/2018 Inactive doxepin 25 mg capsule RxNorm: 5890920 TAKE ONE CAPSULE B Y MOUTH EVERY NIGHT AT BEDTIME NEEDED 2018 08/26/2018 Inactive cyclobenzaprine 10 mg tablet RxNorm: 120332 TAKE ONE TA BLET BY MOUTH THREE TIMES A DAY NEEDED FOR MUSCLE SPASMS 2018 09/29/2018 Inactive hydrocodone 10 mg-acetaminophen 325 mg tablet RxNorm: 726268 1-2 Tablet(s) QID as needed for pain MUST LAST 30 DAYS 07/29/2018 08/27/2018 Inactive (Response to an electronic controlled substance refill request - RxReferenceNumber: [id number]) nystatin 100,000 unit/gram topical powder RxNorm: 294937 Applic ation TOP BID 07/22/2018 08/04/2018 Inactive doxepin 25 mg capsule RxNorm: 0366792 1 Capsule(s) PO QHS as needed 07/22/2018 08/05/2018 Inactive triamterene 75 mg-hydrochlorothiazide 50 mg tablet RxNorm: 3 67559 TAKE ONE TABLET BY MOUTH DAILY 07/05/2018 10/02/2018 Inactive duloxetine 60 mg capsule,delayed release RxNorm: 555963 TAKE ONE CAPSULE BY MOUTH DAILY 07/05/2018 09/02/2018 Inactive Klor-Con 8 mEq tablet,extended release RxNorm: 229690 T FARRUKH ONE TABLET BY MOUTH TWICE A DAY 07/05/2018 10/02/2018 Inactive Lipitor 10 mg tablet RxNorm: 198690 TAKE ONE TABLET BY MOUTH AT BEDTIME 07/05/2018 09/02/2018 Inactive allopurinol 300 mg tablet RxNorm: 621601 TAKE ONE TABLET BY LOPEZ TH DAILY 07/05/2018 10/02/2018 Inactive clonidine HCl 0.1 mg tablet RxNorm: 691953 TAKE ONE TAB LET BY MOUTH FOUR TIMES A DAY 07/05/2018 10/02/2018 Inactive hydrocodone 10 mg-acetaminophen 325 mg tablet RxNorm: 005262 1-2 Tablet(s) QID as needed for pain MUST LAST 30 DAYS 06/28/2018 07/27/2018 Inactive (Response to an electronic controlled substance refill request - RxReferenceNumber: [id number]) MediHoney (calcium alginate-honey) 4" X 5" bandage RxNorm: 1 Application TOP QD 06/17/2018 06/26/2018 Inactive honey-hydrocolloid dressing 4" X 5" RxNorm: 1 Application TOP QD 06/17/2018 07/16/2018 Inactive furosemide 40 mg tablet RxNorm: 835460 TAKE ONE TABLET BY MOUTH EVERY MORNING NEEDED FOR EDEMA . TAKE WITH POTASSIUM 06/10/2018 07/09/2018 Inactive This is a refill request. hydrocodone 10 mg-acetaminophen 325 mg tablet RxNorm: 396539 1-2 Tablet(s) QID as needed for pain MUST LAST 30 DAYS 05/30/2018 06/27/2018 Inactive (Response to an electronic controlled substance refill request - RxReferenceNumber: [id number]) acyclovir 800 mg tablet RxNorm: 042351 1 Tablet(s) PO 5x day 201705/22/2018 Inactive Premarin 1.25 mg tablet RxNorm: 383680 1-2 Tablet(s) PO QD 05/15/20 18 07/13/2018 Inactive cyclobenzaprine 10 mg tablet RxNorm: 048746 1 Tablet(s) PO TID as needed for muscle spasm 05/09/2018 05/08/2018 Inactive Medrol (Dustin) 4 mg tablets in a dose pack RxNorm: 779273 Tablet(s) PO As Directed 05/02/2018 06/16/2018 Inactive hydrocodone 10 mg-acetaminophen 325 mg tablet RxNorm: 989732 1-2 Tablet(s) QID as needed for pain MUST LAST 30 DAYS 04/30/2018 05/29/2018 Inactive (Response to an electronic controlled substance refill request - RxReferenceNumber: [id number]) duloxetine 60 mg capsule,delayed release RxNorm: 877560 TAKE ONE CAPSULE BY MOUTH DAILY 04/16/2018 05/15/2018 Inactive Celebrex 200 mg capsule RxNorm: 691265 TAKE ONE CAPSULE BY MOUT H TWICE A DAY 04/16/2018 06/14/2018 Inactive Singulair 10 mg tablet RxNorm: 261236 TAKE ONE TABLET BY MOUTH JOSÉ Y 04/16/2018 11/19/2018 Inactive Lipitor 10 mg tablet RxNorm: 685741 TAKE ONE TABLET BY MOUTH AT BEDTIME 04/16/2018 05/15/2018 Inactive hydrocodone 10 mg-acetaminophen 325 mg tablet RxNorm: 691161 1-2 Tablet(s) QID as needed for pain MUST LAST 30 DAYS 03/29/2018 04/27/2018 Inactive (Response to an electronic controlled substance refill request - RxReferenceNumber: [id number]) cyclobenzaprine 10 mg tablet RxNorm: 887478 1 Tablet(s) PO TID as needed for muscle spasm 03/18/2018 05/09/2018 Inactive omeprazole 40 mg capsule,delayed release RxNorm: 306232 1 Capsu le(s) PO QD 02/26/2018 08/24/2018 Inactive hydrocodone 10 mg-acetaminophen 325 mg tablet RxNorm: 996705 1-2 Tablet(s) QID as needed for pain MUST LAST 30 DAYS 02/26/2018 03/27/2018 Inactive (Response to an electronic controlled substance refill request - RxReferenceNumber: [id number]) metoprolol tartrate 100 mg tablet RxNorm: 548893 1 Tablet(s) PO BID 02/18/2018 08/05/2018 Inactive Lyrica 75 mg capsule RxNorm: 310536 1 Capsule(s) PO QHS 01/30/2018 Inactive phentermine 37.5 mg tablet RxNorm: 082336 1 Tablet(s) PO QAM 201706/16/2018 Inactive hydrocodone 10 mg-acetaminophen 325 mg tablet RxNorm: 958818 1-2 Tablet(s) QID as needed for pain MUST LAST 30 DAYS 01/29/2018 02/25/2018 Inactive (Response to an electronic controlled substance refill request - RxReferenceNumber: [id number]) Klor-Con 8 mEq tablet,extended release RxNorm: 681004 1 Tablet( s) PO BID 01/14/2018 07/04/2018 Inactive allopurinol 300 mg tablet RxNorm: 154632 1 Tablet(s) PO QD 01/15/20 18 07/04/2018 Inactive Lipitor 10 mg tablet RxNorm: 976269 1 Tablet(s) PO QHS 01/14/201812/2017 Inactive triamterene 75 mg-hydrochlorothiazide 50 mg tablet RxNorm: 3 09553 1 Tablet(s) PO QD 01/14/2018 07/04/2018 Inactive hydrocodone 10 mg-acetaminophen 325 mg tablet RxNorm: 163730 1-2 Tablet(s) QID as needed for pain MUST LAST 30 DAYS 12/27/2017 01/25/2018 Inactive (Response to an electronic controlled substance refill request - RxReferenceNumber: [id number]) Onglyza 5 mg tablet RxNorm: 386187 1 Tablet(s) PO QD 12/18/201701/29 Inactive metformin 500 mg tablet RxNorm: 424649 1 Tablet(s) PO BID 12/11/2017 12/10/2017 Inactive metformin 500 mg tablet RxNorm: 242607 1 Tablet(s) PO BID 12/11/2017 12/17/2017 Inactive furosemide 40 mg tablet RxNorm: 871722 1 Tablet(s) PO Q AM prn edema--take with potassium 12/11/2017 06/08/2018 Inactive cyclobenzaprine 10 mg tablet RxNorm: 725498 1 Tablet(s) PO TID as needed for muscle spasm 12/11/2017 03/18/2018 Inactive hydrocodone 10 mg-acetaminophen 325 mg tablet RxNorm: 166301 1-2 Tablet(s) QID as needed for pain MUST LAST 30 DAYS 10/23/2017 11/21/2017 Inactive (Response to an electronic controlled substance refill request - RxReferenceNumber: [id number]) Lipitor 10 mg tablet RxNorm: 895091 1 Tablet(s) PO QHS 10/16/201703/2018 Inactive cyclobenzaprine 10 mg tablet RxNorm: 371657 1 Tablet(s) PO TID as needed for muscle spasm 10/09/2017 12/10/2017 Inactive hydroxyzine HCl 25 mg tablet RxNorm: 400371 1 Tablet(s) PO BID as needed for anxiety 09/20/2017 01/29/2018 Inactive Effexor XR 75 mg capsule,extended release RxNorm: 995248 1 Caps ule(s) PO QD 09/20/2017 01/29/2018 Inactive metoprolol tartrate 100 mg tablet RxNorm: 791027 1 Tablet(s) PO BID 08/20/2017 02/18/2018 Inactive baclofen 20 mg tablet RxNorm: 423550 1 Tablet(s) PO TID as needed for muscle spasm 08/20/2017 01/21/2019 Inactive clonidine HCl 0.1 mg tablet RxNorm: 922662 1 Tablet(s) PO QID 08/2005/16/2018 Inactive Seroquel 25 mg tablet RxNorm: 228095 1 Tablet(s) PO QHS 08/17/2017 Inactive Seroquel 25 mg tablet RxNorm: 389200 1 Tablet(s) PO QHS 08/17/2017 Inactive Diflucan 100 mg tablet RxNorm: 551961 TAKE ONE TABLET BY MOUTH JOSÉ Y 07/25/2017 08/07/2017 Inactive hydrocodone 10 mg-acetaminophen 325 mg tablet RxNorm: 512144 1-2 Tablet(s) QID as needed for pain MUST LAST 30 DAYS 07/19/2017 08/17/2017 Inactive (Response to an electronic controlled substance refill request - RxReferenceNumber: [id number]) clindamycin 300 mg capsule RxNorm: 748493 1 Capsule(s) PO TID 07/1907/28/2017 Inactive clotrimazole-betamethasone 1 %-0.05 % topical cream RxNorm: 912903 Application TOP BID to elbow rash 07/19/2017 06/16/2018 Inactive Singulair 10 mg tablet RxNorm: 589001 Tablet(s) TAKE ONE TABLET BY MOUTH DAILY 07/18/2017 04/13/2018 Inactive triamterene 75 mg-hydrochlorothiazide 50 mg tablet RxNorm: 3 65183 1 Tablet(s) PO QD 07/18/2017 01/14/2018 Inactive Celebrex 200 mg capsule RxNorm: 583019 Capsule(s) TAKE ONE CAPSULE BY MOUTH TWICE A DAY 07/18/2017 10/15/2017 Inactive hydrocodone 10 mg-acetaminophen 325 mg tablet RxNorm: 164607 1-2 Tablet(s) QID as needed for pain MUST LAST 30 DAYS 06/19/2017 07/18/2017 Inactive (Response to an electronic controlled substance refill request - RxReferenceNumber: [id number]) hydrocodone 10 mg-acetaminophen 325 mg tablet RxNorm: 248371 1-2 Tablet(s) QID as needed for pain MUST LAST 30 DAYS 06/19/2017 06/18/2017 Inactive (Response to an electronic controlled substance refill request - RxReferenceNumber: [id number]) baclofen 20 mg tablet RxNorm: 668383 1 Tablet(s) PO TID as needed for muscle spasm 06/18/2017 08/20/2017 Inactive Medrol (Dustin) 4 mg tablets in a dose pack RxNorm: 752779 Tablet(s) PO As Directed 06/05/2017 07/18/2017 Inactive omeprazole 40 mg capsule,delayed release RxNorm: 985248 1 Capsu le(s) PO QD 04/20/2017 10/16/2017 Inactive Premarin 1.25 mg tablet RxNorm: 727903 1-2 Tablet(s) PO QD 04/11/20 17 05/15/2018 Inactive duloxetine 60 mg capsule,delayed release RxNorm: 456649 1 Capsu le(s) PO QD 04/11/2017 09/19/2017 Inactive furosemide 40 mg tablet RxNorm: 727954 1 Tablet(s) PO Q AM prn edema--take with potassium 04/11/2017 12/11/2017 Inactive Klor-Con 8 mEq tablet,extended release RxNorm: 080323 1 Tablet( s) PO BID 04/11/2017 01/14/2018 Inactive Lipitor 10 mg tablet RxNorm: 458501 1 Tablet(s) PO QHS 04/11/201702/2018 Inactive amlodipine 5 mg-benazepril 20 mg capsule RxNorm: 058045 1 Capsu le(s) PO QD 04/11/2017 01/29/2018 Inactive allopurinol 300 mg tablet RxNorm: 310634 1 Tablet(s) PO QD 04/11/20 17 01/14/2018 Inactive clonidine HCl 0.1 mg tablet RxNorm: 191544 1 Tablet(s) PO QID 04/0508/19/2017 Inactive baclofen 20 mg tablet RxNorm: 138927 1 Tablet(s) PO TID as needed for muscle spasm 04/02/2017 06/18/2017 Inactive Premarin 1.25 mg tablet RxNorm: 159488 1-2 Tablet(s) PO QD 03/20/20 17 04/10/2017 Inactive hydrocodone 10 mg-acetaminophen 325 mg tablet RxNorm: 802304 1-2 Tablet(s) QID as needed for pain MUST LAST 30 DAYS 03/14/2017 01/21/2019 Inactive (Response to an electronic controlled substance refill request - RxReferenceNumber: [id number]) metoprolol tartrate 100 mg tablet RxNorm: 220973 1 Tablet(s) PO BID 02/12/2017 08/20/2017 Inactive hydrocodone 10 mg-acetaminophen 325 mg tablet RxNorm: 945626 1-2 Tablet(s) QID as needed for pain MUST LAST 30 DAYS 02/08/2017 03/09/2017 Inactive (Response to an electronic controlled substance refill request - RxReferenceNumber: [id number]) metoprolol tartrate 100 mg tablet RxNorm: 977492 TAKE O NE TABLET BY MOUTH TWICE A DAY 01/11/2017 02/12/2017 Inactive metoprolol tartrate 100 mg tablet RxNorm: 542223 1 Tablet(s) PO BID 12/18/2016 12/17/2016 Inactive metoprolol tartrate 100 mg tablet RxNorm: 546633 1 Tablet(s) PO BID 12/18/2016 01/10/2017 Inactive furosemide 40 mg tablet RxNorm: 766841 1 Tablet(s) PO Q AM prn edema--take with potassium 12/13/2016 02/10/2017 Inactive amitriptyline 100 mg tablet RxNorm: 044094 1 Tablet(s) PO QHS 11/2812/12/2016 Inactive baclofen 20 mg tablet RxNorm: 021873 1 Tablet(s) PO TID as needed for muscle spasm 11/14/2016 04/01/2017 Inactive triamterene 75 mg-hydrochlorothiazide 50 mg tablet RxNorm: 3 55285 1 Tablet(s) PO QD 11/14/2016 11/13/2016 Inactive metolazone 2.5 mg tablet RxNorm: 262773 TAKE ONE TABLET BY MOUTH DAILY NEEDED FOR EDEMA 11/14/2016 12/12/2016 Inactive triamterene 75 mg-hydrochlorothiazide 50 mg tablet RxNorm: 3 00940 1 Tablet(s) PO QD 11/14/2016 07/18/2017 Inactive amitriptyline 50 mg tablet RxNorm: 752876 TAKE ONE TABL ET BY MOUTH AT BEDTIME NEEDED FOR SLEEP 11/14/2016 11/27/2016 Inactive Cymbalta 60 mg capsule,delayed release RxNorm: 062451 1 Capsule (s) PO QHS 11/14/2016 12/12/2016 Inactive clonidine HCl 0.1 mg tablet RxNorm: 263431 1 Tablet(s) PO QID 11/1304/04/2017 Inactive amitriptyline 50 mg tablet RxNorm: 785737 1 Tablet(s) P O QHS as needed for sleep 11/01/2016 11/27/2016 Inactive duloxetine 60 mg capsule,delayed release RxNorm: 794431 TAKE ONE CAPSULE BY MOUTH DAILY 10/20/2016 01/17/2017 Inactive allopurinol 300 mg tablet RxNorm: 447600 TAKE ONE TABLET BY LOPEZ TH DAILY 10/20/2016 01/16/2017 Inactive Lyrica 75 mg capsule RxNorm: 488301 TAKE ONE CAPSULE BY MOUTH EVERY NIGHT AT BEDTIME 10/20/2016 12/10/2016 Inactive Klor-Con 8 mEq tablet,extended release RxNorm: 845749 T FARRUKH ONE TABLET BY MOUTH TWICE A DAY 10/20/2016 01/17/2017 Inactive Celebrex 200 mg capsule RxNorm: 715773 TAKE ONE CAPSULE BY MOUT H TWICE A DAY 10/20/2016 07/18/2017 Inactive Bystolic 10 mg tablet RxNorm: 253095 TAKE ONE TABLET BY MOUTH EVERY NIGHT AT BEDTIME 10/20/2016 12/17/2016 Inactive amlodipine 5 mg-benazepril 20 mg capsule RxNorm: 632700 TAKE ONE CAPSULE BY MOUTH EVERY NIGHT AT BEDTIME -- TO REPLACE AMLODOPINE 10/20/20162016 Inactive Lipitor 10 mg tablet RxNorm: 728022 TAKE ONE TABLET BY MOUTH EVERY NIGHT AT BEDTIME 10/20/2016 01/17/2017 Inactive alprazolam 0.5 mg tablet RxNorm: 200808 3 Tablet(s) PO QHS as needed for sleep/anxiety 09/20/2016 10/31/2016 Inactive Tamiflu 75 mg capsule RxNorm: 661415 1 Capsule(s) PO QD 09/19/2016 Inactive Lyrica 75 mg capsule RxNorm: 967677 1 Capsule(s) PO QHS 09/19/2016 Inactive prednisone 20 mg tablet RxNorm: 725510 1 Tablet(s) PO QD 08/10/2016 1 10/17/2015 Inactive doxycycline hyclate 100 mg capsule RxNorm: 2613570 1 Capsule(s) PO BID 08/10/2016 08/19/2016 Inactive Medrol (Dustin) 4 mg tablets in a dose pack RxNorm: 666913 Tablet(s) PO As Directed 07/31/2016 08/22/2016 Inactive Singulair 10 mg tablet RxNorm: 411365 TAKE ONE TABLET BY MOUTH JOSÉ Y 07/27/2016 07/18/2017 Inactive hydrocodone 10 mg-acetaminophen 325 mg tablet RxNorm: 824947 1-2 Tablet(s) QID as needed for pain MUST LAST 30 DAYS 07/26/2016 08/24/2016 Inactive (Response to an electronic controlled substance refill request - RxReferenceNumber: [id number]) alprazolam 0.5 mg tablet RxNorm: 994134 3 Tablet(s) PO QHS as needed for anxiety or sleep 07/26/2016 09/20/2016 Inactive clindamycin 300 mg capsule RxNorm: 975635 1 Capsule(s) PO TID 07/2007/29/2016 Inactive Diflucan 100 mg tablet RxNorm: 872346 1 Tablet(s) PO QD 07/20/2016 Inactive Levaquin 500 mg tablet RxNorm: 339147 1 Tablet(s) PO QD 07/17/2016 Inactive Levaquin 500 mg tablet RxNorm: 530687 1 Tablet(s) PO QD 07/10/2016 Inactive Levaquin 500 mg tablet RxNorm: 550998 1 Tablet(s) PO QD 07/10/2016 Inactive mupirocin 2 % topical ointment RxNorm: 846687 TOP Apply topically to affected areas twice daily 07/06/2016 09/18/2016 Inactive Singulair 10 mg tablet RxNorm: 797714 TAKE ONE TABLET BY MOUTH JOSÉ Y 06/21/2016 01/21/2019 Inactive alprazolam 0.5 mg tablet RxNorm: 877152 TAKE THREE TABL ETS BY MOUTH AT BEDTIME NEEDED FOR SLEEP OR STRESS 05/22/2016 06/20/2016 Inactive triamterene 75 mg-hydrochlorothiazide 50 mg tablet RxNorm: 3 91939 1 Tablet(s) PO QD 04/26/2016 01/12/2020 Inactive Premarin 1.25 mg tablet RxNorm: 787190 1-2 Tablet(s) PO QD 04/26/20 16 03/20/2017 Inactive Klor-Con 8 mEq tablet,extended release RxNorm: 367445 1 Tablet( s) PO BID 04/26/2016 10/19/2016 Inactive Celebrex 200 mg capsule RxNorm: 144217 1 Capsule(s) PO BID TAKE ONE CAPSULE BY MOUTH EVERY DAY 04/26/2016 10/19/2016 Inactive Lipitor 10 mg tablet RxNorm: 285895 1 Tablet(s) PO QHS 04/26/201605/2017 Inactive allopurinol 300 mg tablet RxNorm: 189507 1 Tablet(s) PO QD TAKE ONE TABLET BY MOUTH EVERY DAY 04/26/2016 10/19/2016 Inactive amlodipine 5 mg-benazepril 20 mg capsule RxNorm: 634980 1 Capsule(s) PO QHS replaces amlodopine 04/26/2016 10/19/2016 Inactive duloxetine 60 mg capsule,delayed release RxNorm: 026804 1 Capsu le(s) PO QD 04/26/2016 10/19/2016 Inactive Bystolic 10 mg tablet RxNorm: 438913 1 Tablet(s) PO QHS 04/26/2016 Inactive Singulair 10 mg tablet RxNorm: 933237 1 Tablet(s) PO QD TAKE ONE TABLET BY MOUTH DAILY 04/26/2016 06/20/2016 Inactive clonidine HCl 0.1 mg tablet RxNorm: 320478 1 Tablet(s) PO QID 04/2610/22/2016 Inactive hydrocodone 10 mg-acetaminophen 325 mg tablet RxNorm: 906250 1-2 Tablet(s) QID as needed for pain TAKE ONE TO TWO TABLETS BY MOUTH FOUR TIMES A DAY . MUST LAST 30 DAYS 03/31/2016 04/29/2016 Inactive (Response to an electronic controlled substance refill request [id number]) Klor-Con 8 mEq tablet,extended release RxNorm: 331033 T FARRUKH ONE TABLET BY MOUTH TWICE A DAY 03/24/2016 09/29/2019 Inactive prednisone 20 mg tablet RxNorm: 094790 1 Tablet(s) PO QD 03/09/2016 0 03/08/2016 Inactive prednisone 20 mg tablet RxNorm: 770122 1 Tablet(s) PO QD 03/09/2016 0 03/13/2016 Inactive alprazolam 0.5 mg tablet RxNorm: 785039 3 Tablet(s) PO QHS as needed for sleep/stress 03/02/2016 01/21/2019 Inactive mupirocin 2 % topical ointment RxNorm: 376601 TOP twice daily to affected areas of face and neck 02/21/2016 04/25/2016 Inactive clonidine HCl 0.1 mg tablet RxNorm: 867744 TAKE ONE TAB LET BY MOUTH FOUR TIMES A DAY 02/15/2016 09/29/2019 Inactive clonidine HCl 0.1 mg tablet RxNorm: 548096 1 Tablet(s) PO QID 02/1404/25/2016 Inactive Premarin 1.25 mg tablet RxNorm: 887040 1-2 Tablet(s) PO QD 02/15/20 16 03/15/2016 Inactive Klor-Con 8 mEq tablet,extended release RxNorm: 767657 T FARRUKH ONE TABLET BY MOUTH TWICE A DAY 02/15/2016 03/15/2016 Inactive potassium chloride ER 20 mEq tablet,extended release(part/cr yst) RxNorm: 325522 2 Tablet(s) PO BID 02/15/2016 03/15/2016 Inactive Macrobid 100 mg capsule RxNorm: 875802 1 Capsule(s) PO BID 01/24/20 16 01/30/2016 Inactive prednisone 20 mg tablet RxNorm: 137363 Take 3tabs PO QD x 2 days, then 2 tabs PO QD x 2 days, then 1 tab PO QD x 2 days, then 1/2 tab PO QDy x 2 days 12/23/2015 04/25/2016 Inactive Klor-Con 8 mEq tablet,extended release RxNorm: 628614 T FARRUKH ONE TABLET BY MOUTH TWICE A DAY 12/20/2015 02/14/2016 Inactive alprazolam 1 mg tablet RxNorm: 454104 1 1/2 Tablet(s) PO QHS 201501/23/2016 Inactive nystatin 100,000 unit/gram topical cream RxNorm: 154556 APPLY TO AFFECTED AREA(S) TWO TIMES A DAY 11/30/2015 12/14/2015 Inactive Singulair 10 mg tablet RxNorm: 082739 TAKE ONE TABLET BY MOUTH JOSÉ Y 11/18/2015 04/25/2016 Inactive allopurinol 300 mg tablet RxNorm: 509172 1 Tablet(s) PO QD TAKE ONE TABLET BY MOUTH EVERY DAY 10/26/2015 04/22/2016 Inactive Singulair 10 mg tablet RxNorm: 368838 TAKE ONE TABLET BY MOUTH JOSÉ Y 10/26/2015 11/17/2015 Inactive duloxetine 60 mg capsule,delayed release RxNorm: 149976 1 Capsu le(s) PO QD 10/26/2015 04/22/2016 Inactive triamterene 75 mg-hydrochlorothiazide 50 mg tablet RxNorm: 3 17910 1 Tablet(s) PO QD 10/26/2015 11/14/2016 Inactive potassium chloride ER 20 mEq tablet,extended release(part/cr yst) RxNorm: 756347 2 Tablet(s) PO BID 10/26/2015 02/14/2016 Inactive Lipitor 10 mg tablet RxNorm: 452502 1 Tablet(s) PO QHS 10/26/2015 Inactive amlodipine 5 mg-benazepril 20 mg capsule RxNorm: 194909 1 Capsule(s) PO QHS replaces amlodopine 10/26/2015 04/22/2016 Inactive Bystolic 10 mg tablet RxNorm: 631015 1 Tablet(s) PO QHS 10/26/2015 Inactive amlodipine 5 mg-benazepril 20 mg capsule RxNorm: 742020 1 Capsule(s) PO QHS replaces amlodopine 10/06/2015 10/25/2015 Inactive amlodipine 5 mg tablet RxNorm: 231664 1 Tablet(s) PO QHS 09/30/2015 0 04/25/2016 Inactive metolazone 2.5 mg tablet RxNorm: 117256 TAKE ONE TABLET BY MOUTH DAILY NEEDED FOR EDEMA 09/30/2015 01/21/2019 Inactive duloxetine 60 mg capsule,delayed release RxNorm: 446455 1 Capsu le(s) PO QD 09/30/2015 10/25/2015 Inactive cephalexin 500 mg capsule RxNorm: 610276 1 Capsule(s) PO BID 201509/23/2015 Inactive mupirocin 2 % topical ointment RxNorm: 325059 TOP twice daily to affected areas of face and neck 09/14/2015 02/20/2016 Inactive baclofen 20 mg tablet RxNorm: 077339 1 Tablet(s) PO TID as needed for muscle spasm 09/01/2015 11/14/2016 Inactive clonidine HCl 0.1 mg tablet RxNorm: 032743 1 Tablet(s) PO QID 09/0102/14/2016 Inactive alprazolam 1 mg tablet RxNorm: 091312 1 1/2 Tablet(s) PO QHS 201409/09/2015 Inactive baclofen 20 mg tablet RxNorm: 794908 1 Tablet(s) PO TID as needed for muscle spasm 07/23/2015 09/01/2015 Inactive omeprazole 40 mg capsule,delayed release RxNorm: 813872 1 Capsu le(s) PO QD 07/23/2015 04/25/2016 Inactive alprazolam 1 mg tablet RxNorm: 847905 1 1/2 Tablet(s) PO QHS 201408/10/2015 Inactive Bystolic 10 mg tablet RxNorm: 185106 1 Tablet(s) PO BID 06/24/2015 Inactive allopurinol 300 mg tablet RxNorm: 811432 1 Tablet(s) PO QD TAKE ONE TABLET BY MOUTH EVERY DAY 06/23/2015 10/20/2015 Inactive alprazolam 1 mg tablet RxNorm: 080846 1 1/2 Tablet(s) PO QHS 201407/06/2015 Inactive clonidine HCl 0.1 mg tablet RxNorm: 940804 1 Tablet(s) PO QID 06/0209/01/2015 Inactive clonidine HCl 0.1 mg tablet RxNorm: 774781 1 Tablet(s) PO QID 06/0206/01/2015 Inactive Cymbalta 60 mg capsule,delayed release RxNorm: 193883 1 Capsule (s) PO QHS 06/02/2015 08/30/2015 Inactive Cymbalta 60 mg capsule,delayed release RxNorm: 499179 1 Capsule (s) PO QHS 06/02/2015 06/01/2015 Inactive clonidine HCl 0.1 mg tablet RxNorm: 056672 1 Tablet(s) PO TID 05/3106/01/2015 Inactive replaces 0.2mg dose metolazone 2.5 mg tablet RxNorm: 192451 TAKE ONE TABLET BY MOUTH DAILY NEEDED FOR EDEMA 05/21/2015 06/19/2015 Inactive Singulair 10 mg tablet RxNorm: 224903 TAKE ONE TABLET BY MOUTH JOSÉ Y 05/21/2015 10/17/2015 Inactive Cymbalta 30 mg capsule,delayed release RxNorm: 754627 1 Capsule (s) PO QHS 05/20/2015 11/14/2016 Inactive betamethasone valerate 0.1 % topical cream RxNorm: 908657 Appli cation TOP BID 05/10/2015 04/25/2016 Inactive Bactroban 2 % topical ointment RxNorm: 530039 Application TOP BID 0 05/10/2015 06/20/2015 Inactive baclofen 20 mg tablet RxNorm: 281333 1 Tablet(s) PO TID as needed 0 04/26/2015 07/23/2015 Inactive Lipitor 10 mg tablet RxNorm: 208783 1 Tablet(s) PO QHS 04/26/201508/2016 Inactive clonidine HCl 0.1 mg tablet RxNorm: 765595 1 Tablet(s) PO TID 04/2605/30/2015 Inactive replaces 0.2mg dose Klor-Con 8 mEq tablet,extended release RxNorm: 836887 1 Tablet( s) PO BID 04/26/2015 04/25/2016 Inactive metolazone 2.5 mg tablet RxNorm: 575032 1 Tablet(s) PO QD as ne eded for edema 04/26/2015 04/25/2015 Inactive triamterene 75 mg-hydrochlorothiazide 50 mg tablet RxNorm: 3 97958 1 Tablet(s) PO QD 04/26/2015 10/22/2015 Inactive Premarin 1.25 mg tablet RxNorm: 133672 1-2 Tablet(s) PO QD 04/26/20 15 10/22/2015 Inactive Bystolic 10 mg tablet RxNorm: 346740 1 Tablet(s) PO QAM TAKE ONE TABLET BY MOUTH EVERY MORNING 04/23/2015 06/23/2015 Inactive clonidine HCl 0.1 mg tablet RxNorm: 355687 1 Tablet(s) PO TID 03/2304/25/2015 Inactive replaces 0.2mg dose nystatin 100,000 unit/gram topical cream RxNorm: 897839 Applica tion TOP BID 03/23/2015 06/20/2015 Inactive baclofen 20 mg tablet RxNorm: 549219 1 Tablet(s) PO TID as needed 0 03/23/2015 04/25/2015 Inactive Premarin 1.25 mg tablet RxNorm: 459962 1-2 Tablet(s) PO QD 03/23/20 15 04/25/2015 Inactive Klor-Con 8 mEq tablet,extended release RxNorm: 546355 1 Tablet( s) PO BID 03/23/2015 04/25/2015 Inactive cefdinir 300 mg capsule RxNorm: 695381 2 Capsule(s) PO QD 03/16/2015 03/25/2015 Inactive baclofen 20 mg tablet RxNorm: 515563 1 Tablet(s) PO TID as needed 0 03/02/2015 03/22/2015 Inactive allopurinol 300 mg tablet RxNorm: 650476 1 Tablet(s) PO QD TAKE ONE TABLET BY MOUTH EVERY DAY 02/22/2015 05/22/2015 Inactive Klor-Con M20 mEq tablet,extended release RxNorm: 153087 2 Tablet(s) PO BID to use with lasix 02/22/2015 06/20/2015 Inactive clonidine HCl 0.1 mg tablet RxNorm: 077659 1 Tablet(s) PO TID 02/1903/22/2015 Inactive replaces 0.2mg dose Lipitor 10 mg tablet RxNorm: 652414 1 Tablet(s) PO QHS 01/20/201506/2015 Inactive Lipitor 10 mg tablet RxNorm: 029297 1 Tablet(s) PO QHS 01/20/2015 Inactive Singulair 10 mg tablet RxNorm: 275664 1 Tablet(s) PO QD TAKE ONE TABLET BY MOUTH EVERY DAY 11/20/2014 05/18/2015 Inactive Lipitor 10 mg tablet RxNorm: 344552 1 Tablet(s) PO QHS 11/20/201408/2015 Inactive allopurinol 300 mg tablet RxNorm: 342831 1 Tablet(s) PO QD TAKE ONE TABLET BY MOUTH EVERY DAY 11/20/2014 02/16/2015 Inactive Bystolic 10 mg tablet RxNorm: 610562 1 Tablet(s) PO QAM TAKE ONE TABLET BY MOUTH EVERY MORNING 11/20/2014 04/22/2015 Inactive Klor-Con 8 mEq tablet,extended release RxNorm: 692633 1 Tablet( s) PO BID 11/20/2014 02/17/2015 Inactive baclofen 20 mg tablet RxNorm: 487171 1 Tablet(s) PO TID as needed 0 11/20/2014 01/21/2019 Inactive baclofen 20 mg tablet RxNorm: 382334 1 Tablet(s) PO TID as needed 0 10/27/2014 11/19/2014 Inactive baclofen 20 mg tablet RxNorm: 901092 1 Tablet(s) PO TID as needed 0 10/26/2014 03/01/2015 Inactive allopurinol 300 mg tablet RxNorm: 389391 1 Tablet(s) PO QD TAKE ONE TABLET BY MOUTH EVERY DAY 10/26/2014 11/20/2014 Inactive Bystolic 10 mg tablet RxNorm: 955980 1 Tablet(s) PO QAM TAKE ONE TABLET BY MOUTH EVERY MORNING 10/26/2014 11/20/2014 Inactive clonidine HCl 0.1 mg tablet RxNorm: 621387 1 Tablet(s) PO TID 09/2805/27/2019 Inactive replaces 0.2mg dose clonidine HCl 0.1 mg tablet RxNorm: 422357 1 Tablet(s) PO TID 09/2802/18/2015 Inactive replaces 0.2mg dose baclofen 20 mg tablet RxNorm: 348700 1 Tablet(s) PO TID as needed 1 11/01/2013 08/30/2014 Inactive Lipitor 10 mg tablet RxNorm: 574079 1 Tablet(s) PO QHS 08/31/2014 Inactive baclofen 20 mg tablet RxNorm: 278762 1 Tablet(s) PO TID as needed 1 11/01/2013 10/26/2014 Inactive triamterene 75 mg-hydrochlorothiazide 50 mg tablet RxNorm: 3 70466 1 Tablet(s) PO QD 08/31/2014 02/26/2015 Inactive Klor-Con 8 mEq tablet,extended release RxNorm: 961285 1 Tablet( s) PO BID 08/31/2014 11/20/2014 Inactive baclofen 20 mg tablet RxNorm: 284171 1 Tablet(s) PO TID as needed 1 09/30/2013 10/25/2014 Inactive baclofen 20 mg tablet RxNorm: 331028 1 Tablet(s) PO TID as needed 1 09/30/2013 08/31/2014 Inactive omeprazole 40 mg capsule,delayed release RxNorm: 729315 1 Capsu le(s) PO QD 07/21/2014 07/23/2015 Inactive Flonase 50 mcg/actuation nasal spray,suspension RxNorm: 8963 23 1 [place] NASAL BID 07/15/2014 04/09/2017 Inactive hydrocodone 10 mg-acetaminophen 325 mg tablet RxNorm: 273066 1-2 Tablet(s) QID as needed for pain TAKE ONE TO TWO TABLETS BY MOUTH FOUR TIMES A DAY . MUST LAST 30 DAYS 06/30/2014 07/27/2014 Inactive (Response to an electronic controlled substance refill request - RxReferenceNumber: [id number]) baclofen 20 mg tablet RxNorm: 135790 1 Tablet(s) PO TID as needed 1 07/31/2014 Inactive Singulair 10 mg tablet RxNorm: 121352 1 Tablet(s) PO QD TAKE ONE TABLET BY MOUTH EVERY DAY 05/25/2014 11/20/2014 Inactive Bystolic 10 mg tablet RxNorm: 921451 TAKE ONE TABLET BY MOUTH E VERY MORNING 05/25/2014 09/21/2014 Inactive allopurinol 300 mg tablet RxNorm: 681692 1 Tablet(s) PO QD TAKE ONE TABLET BY MOUTH EVERY DAY 05/25/2014 10/21/2014 Inactive baclofen 20 mg tablet RxNorm: 593031 1 Tablet(s) PO TID as needed 0 05/25/2014 06/29/2014 Inactive allopurinol 300 mg tablet RxNorm: 450429 TAKE ONE TABLET BY LOPEZ TH EVERY DAY 05/25/2014 09/21/2014 Inactive Singulair 10 mg tablet RxNorm: 974032 1 Tablet(s) PO QD TAKE ONE TABLET BY MOUTH EVERY DAY 05/25/2014 05/24/2014 Inactive Bystolic 10 mg tablet RxNorm: 998028 1 Tablet(s) PO QAM TAKE ONE TABLET BY MOUTH EVERY MORNING 05/25/2014 10/21/2014 Inactive metolazone 2.5 mg tablet RxNorm: 640218 1 Tablet(s) PO QD as ne eded for edema 05/18/2014 04/25/2015 Inactive Lasix 40 mg tablet RxNorm: 452536 1 Tablet(s) PO QAM s hould take potassium supplementation with this medication 05/14/2014 05/17/2014 Inactive hydrocodone 10 mg-acetaminophen 325 mg tablet RxNorm: 633187 1-2 Tablet(s) QID as needed for pain TAKE ONE TO TWO TABLETS BY MOUTH FOUR TIMES A DAY . MUST LAST 30 DAYS 05/07/2014 06/05/2014 Inactive (Response to an electronic controlled substance refill request - RxReferenceNumber: [id number]) alprazolam 0.5 mg tablet RxNorm: 762607 TAKE ONE TABLET BY MOUTH TWICE A DAY , MUST LAST 30 DAYS 05/07/2014 05/22/2016 Inactive (Response to a n electronic controlled substance refill request - RxReferenceNumber: [id number]) diclofenac sodium 75 mg tablet,delayed release RxNorm: 33729 6 1 Tablet(s) PO BID for pain 04/24/2014 07/20/2014 Inactive Celebrex 200 mg capsule RxNorm: 475964 TAKE ONE CAPSULE BY MOUT H EVERY DAY 04/24/2014 07/20/2014 Inactive alprazolam 0.5 mg tablet RxNorm: 672628 TAKE ONE TABLET BY MOUTH TWICE A DAY , MUST LAST 30 DAYS 03/24/2014 04/22/2014 Inactive (Response to a n electronic controlled substance refill request - RxReferenceNumber: [id number]) diclofenac sodium 75 mg tablet,delayed release RxNorm: 30866 6 1 Tablet(s) PO BID for pain 03/24/2014 04/24/2014 Inactive clonidine HCl 0.1 mg tablet RxNorm: 484178 1 Tablet(s) PO TID 03/2409/28/2014 Inactive replaces 0.2mg dose Klor-Con 8 mEq tablet,extended release RxNorm: 495270 1 Tablet( s) PO BID 02/26/2014 08/31/2014 Inactive diclofenac sodium 75 mg tablet,delayed release RxNorm: 59109 6 1 Tablet(s) PO BID for pain 02/25/2014 03/24/2014 Inactive hydrocodone 10 mg-acetaminophen 325 mg tablet RxNorm: 278933 1-2 Tablet(s) QID as needed for pain TAKE ONE TO TWO TABLETS BY MOUTH FOUR TIMES A DAY . MUST LAST 30 DAYS 02/25/2014 03/26/2014 Inactive (Response to an electronic controlled substance refill request - RxReferenceNumber: [id number]) alprazolam 0.5 mg tablet RxNorm: 665009 Tablet(s) PO BI D as needed for anxiety TAKE ONE TABLET BY MOUTH TWICE A DAY , MUST LAST 30 DAYS 02/25/2014 Inactive (Response to an electronic controlled [place] bstance refill request - RxReferenceNumber: [id number]) [AttnRPh: Saving apply/adjudicate RxGRP:SG20 RxBIN:[id number] RxPCN: ID#:[id number]] alprazolam 0.5 mg tablet RxNorm: 554602 Tablet(s) TAKE ONE TABLET BY MOUTH TWICE A DAY , MUST LAST 30 DAYS 01/27/2014 02/24/2014 Inactive (Respo nse to an electronic controlled substance refill request - RxReferenceNumber: [id number]) [AttnRPh: Saving apply/adjudicate RxGRP:SG20 RxBIN:[id number] RxPCN: ID#:[id number]] hydrocodone 10 mg-acetaminophen 325 mg tablet RxNorm: 024904 1-2 Tablet(s) QID as needed for pain TAKE ONE TO TWO TABLETS BY MOUTH FOUR TIMES A DAY . MUST LAST 30 DAYS 01/27/2014 02/24/2014 Inactive (Response to an electronic controlled substance refill request - RxReferenceNumber: [id number]) alprazolam 0.5 mg tablet RxNorm: 073545 TAKE ONE TABLET BY MOUTH TWICE A DAY , MUST LAST 30 DAYS 01/27/2014 01/26/2014 Inactive (Response to a n electronic controlled substance refill request - RxReferenceNumber: [id number]) Premarin 1.25 mg tablet RxNorm: 484925 1-2 Tablet(s) PO QD 01/28/20 14 07/25/2014 Inactive alprazolam 0.5 mg tablet RxNorm: 196895 TAKE ONE TABLET BY MOUTH TWICE A DAY , MUST LAST 30 DAYS 01/27/2014 01/27/2014 Inactive (Response to a n electronic controlled substance refill request - RxReferenceNumber: [id number]) hydrocodone 10 mg-acetaminophen 325 mg tablet RxNorm: 637566 TAKE ONE TO TWO TABLETS BY MOUTH FOUR TIMES A DAY . MUST LAST 30 DAYS 01/27/20142013 Inactive (Response to an electronic controlled [place] bstance refill request - RxReferenceNumber: [id number]) Celebrex 200 mg capsule RxNorm: 963139 1 Capsule(s) PO QD TAKE ONE CAPSULE BY MOUTH EVERY DAY 12/29/2013 04/27/2014 Inactive hydrocodone 10 mg-acetaminophen 325 mg tablet RxNorm: 374816 1-2 Tablet(s) PO QID as needed for severe pain 12/29/2013 01/27/2014 Inactive allopurinol 300 mg tablet RxNorm: 978204 1 Tablet(s) PO QD TAKE ONE TABLET BY MOUTH EVERY DAY 12/29/2013 05/24/2014 Inactive alprazolam 0.5 mg tablet RxNorm: 266972 TAKE ONE TABLET BY MOUTH TWICE A DAY , MUST LAST 30 DAYS 12/29/2013 01/27/2014 Inactive (Response to a n electronic controlled substance refill request - RxReferenceNumber: [id number]) Celebrex 200 mg capsule RxNorm: 766126 1 Capsule(s) PO QD TAKE ONE CAPSULE BY MOUTH EVERY DAY 12/29/2013 12/29/2013 Inactive Bystolic 10 mg tablet RxNorm: 996478 1 Tablet(s) PO QAM TAKE ONE TABLET BY MOUTH EVERY MORNING 12/29/2013 05/24/2014 Inactive Bystolic 10 mg tablet RxNorm: 542307 1 Tablet(s) PO QAM TAKE ONE TABLET BY MOUTH EVERY MORNING 12/29/2013 12/29/2013 Inactive Singulair 10 mg tablet RxNorm: 121469 1 Tablet(s) PO QD TAKE ONE TABLET BY MOUTH EVERY DAY 12/29/2013 05/25/2014 Inactive hydrocodone 10 mg-acetaminophen 325 mg tablet RxNorm: 614576 TAKE ONE TO TWO TABLETS BY MOUTH FOUR TIMES A DAY . MUST LAST 30 DAYS 12/29/20132013 Inactive (Response to an electronic controlled cornell bstance refill request - RxReferenceNumber: [id number]) Trazadone 75mg Tablet RxNorm: 1 Tablet(s) PO QHS as needed 03/23/2014 Inactive Trazadone 75mg Tablet RxNorm: 1 Tablet(s) PO QHS 12/24/20132014 Inactive Soma 350 mg tablet RxNorm: 776426 Tablet(s) PO TAKE ON E TABLET BY MOUTH THREE TIMES A DAY NEEDED FOR MUSCLE SPASMS. THIS MUST LAST 30 DAYS BETWEEN REFILLS. 12/10/2013 12/22/2013 Inactive (Appended: Cont rolled substance eRx refill - RxReferenceNumber: [id number]) diclofenac sodium 75 mg tablet,delayed release RxNorm: 28611 6 1 Tablet(s) PO BID for pain 12/10/2013 02/24/2014 Inactive allopurinol 300 mg tablet RxNorm: 398182 1 Tablet(s) PO QD 11/20/19 14 12/29/2013 Inactive alprazolam 0.5 mg tablet RxNorm: 808963 2 Tablet(s) PO BID 11/13/19 14 12/29/2013 Inactive prn clonidine 0.1 mg tablet RxNorm: 848480 1 Tablet(s) PO TID 11/12/2013 02/09/2014 Inactive replaces 0.2mg dose Klor-Con M20 mEq tablet,extended release RxNorm: 563018 2 Tablet(s) PO BID to use with lasix 11/12/2013 05/10/2014 Inactive Singulair 10 mg tablet RxNorm: 048627 1 Tablet(s) PO QD 11/12/2013 Inactive hydrocodone 10 mg-acetaminophen 325 mg tablet RxNorm: 156781 1-2 Tablet(s) PO QID as needed for severe pain 11/12/2013 12/28/2013 Inactive Bystolic 10 mg tablet RxNorm: 787136 1 Tablet(s) PO QAM 11/12/2013 Inactive Soma 350 mg tablet RxNorm: 282793 Tablet(s) PO TAKE ON E TABLET BY MOUTH THREE TIMES A DAY NEEDED FOR MUSCLE SPASMS. THIS MUST LAST 30 DAYS BETWEEN REFILLS. 10/13/2013 12/10/2013 Inactive (Appended: Cont rolled substance eRx refill - RxReferenceNumber: [id number]) hydrocodone 10 mg-acetaminophen 325 mg tablet RxNorm: 892597 1-2 Tablet(s) PO QID as needed for severe pain 10/03/2013 11/11/2013 Inactive diclofenac sodium 75 mg tablet,delayed release RxNorm: 24553 8 1 Tablet(s) PO BID for pain 09/11/2013 12/10/2013 Inactive alprazolam 0.5 mg tablet RxNorm: 891091 1 Tablet(s) PO BID May refill on 04/26/13 09/01/2013 10/30/2013 Inactive prn hydrocodone 10 mg-acetaminophen 325 mg tablet RxNorm: 766388 1-2 Tablet(s) PO QID as needed for severe pain 09/01/2013 10/02/2013 Inactive triamterene 75 mg-hydrochlorothiazide 50 mg tablet RxNorm: 3 28708 1 Tablet(s) PO QD 08/04/2013 08/31/2014 Inactive cyclobenzaprine 10 mg tablet RxNorm: 976961 1 Tablet(s) PO TID prn spasm 08/04/2013 08/13/2013 Inactive clonidine 0.1 mg tablet RxNorm: 998803 1 Tablet(s) PO TID 08/04/2013 11/11/2013 Inactive replaces 0.2mg dose cyclobenzaprine 10 mg tablet RxNorm: 842175 1 Tablet(s) PO TID prn spasm 07/23/2013 08/01/2013 Inactive hydrocodone 10 mg-acetaminophen 325 mg tablet RxNorm: 327012 2 1-2 Tablet(s) PO QID as needed for severe pain 06/09/2013 08/07/2013 Inactive Singulair 10 mg tablet RxNorm: 008428 1 Tablet(s) PO QD 05/29/2013 Inactive Klor-Con 8 mEq tablet,extended release RxNorm: 440763 1 Tablet( s) PO BID 05/29/2013 02/26/2014 Inactive allopurinol 300 mg tablet RxNorm: 915453 1 Tablet(s) PO QD 05/29/20 13 11/19/2013 Inactive Bystolic 10 mg tablet RxNorm: 915500 1 Tablet(s) PO QAM take one daily in the morning. 05/29/2013 11/11/2013 Inactive scopolamine 1.5 mg 72 hr Transderm Patch RxNorm: 518900 Application TD Q72H for motion sickness 05/26/2013 07/22/2013 Inactive Soma 350 mg tablet RxNorm: 756835 1 Tablet(s) PO TID as needed for spasm 05/19/2013 10/13/2013 Inactive diclofenac sodium 75 mg tablet,delayed release RxNorm: 02104 8 1 Tablet(s) PO BID for pain 05/14/2013 07/22/2013 Inactive allopurinol 300 mg tablet RxNorm: 765077 1 Tablet(s) PO QD 04/25/20 13 05/28/2013 Inactive alprazolam 0.5 mg tablet RxNorm: 647242 1 Tablet(s) PO BID May refill on 04/26/13 04/25/2013 06/23/2013 Inactive prn Celebrex 200 mg capsule RxNorm: 692569 1 Capsule(s) PO QD 04/16/2013 12/29/2013 Inactive alprazolam 0.5 mg tablet RxNorm: 849476 1 Tablet(s) PO BID May refill on 04/26/13 04/16/2013 04/24/2013 Inactive prn Soma 350 mg tablet RxNorm: 638826 1 Tablet(s) PO TID as needed for spasm 04/16/2013 No Stop Date Active Lasix 40 mg tablet RxNorm: 348634 1 Tablet(s) PO QAM s hould take potassium supplementation with this medication 04/16/2013 06/14/2013 Inactive clonidine 0.1 mg tablet RxNorm: 303800 1 Tablet(s) PO TID 04/16/2013 08/03/2013 Inactive replaces 0.2mg dose prednisone 20 mg tablet RxNorm: 880842 1 Tablet(s) PO BID 04/16/2013 04/20/2013 Inactive diclofenac sodium 75 mg tablet,delayed release RxNorm: 07421 8 1 Tablet(s) PO BID for pain 04/14/2013 05/13/2013 Inactive hydrocodone 10 mg-acetaminophen 325 mg tablet RxNorm: 720813 2 1-2 Tablet(s) PO QID as needed for severe pain 04/14/2013 No Stop Date Active Lasix 40 mg tablet RxNorm: 756221 1 Tablet(s) PO QAM s hould take potassium supplementation with this medication 03/31/2013 04/15/2013 Inactive Celebrex 200 mg capsule RxNorm: 564691 1 Capsule(s) PO QD 03/31/2013 04/15/2013 Inactive alprazolam 0.5 mg tablet RxNorm: 871850 1 Tablet(s) PO BID 03/28/20 13 04/15/2013 Inactive prn hydrocodone 10 mg-acetaminophen 325 mg tablet RxNorm: 612592 2 1-2 Tablet(s) PO QID as needed for severe pain 03/10/2013 No Stop Date Active metformin ER 500 mg 24 hr tablet,extended release RxNorm: 86 1018 1 Tablet(s) PO QD 03/06/2013 07/22/2013 Inactive clindamycin 300 mg capsule RxNorm: 479405 2 Capsule(s) PO TID 03/0503/14/2013 Inactive Zaroxolyn 2.5 mg tablet RxNorm: 375524 1 Tablet(s) PO QAM 03/05/2013 05/19/2015 Inactive amlodipine 10 mg tablet RxNorm: 274101 1 Tablet(s) PO QD 03/03/2013 0 05/25/2013 Inactive Norvasc 10 mg tablet RxNorm: 183071 1 Tablet(s) PO QD 02/28/201307/11 Inactive Celebrex 200 mg capsule RxNorm: 951179 1 Capsule(s) PO QD 02/28/2013 03/30/2013 Inactive diclofenac sodium 75 mg tablet,delayed release RxNorm: 63565 8 1 Tablet(s) PO BID for pain 02/14/2013 03/15/2013 Inactive Soma 350 mg tablet RxNorm: 243106 1 Tablet(s) PO TID as needed for spasm 02/14/2013 No Stop Date Active hydrocodone 10 mg-acetaminophen 325 mg tablet RxNorm: 649059 2 1-2 Tablet(s) PO QID as needed for severe pain 02/14/2013 No Stop Date Active Norvasc 10 mg tablet RxNorm: 964005 1 Tablet(s) PO QD 02/10/201302/09 Inactive Celebrex 200 mg capsule RxNorm: 382679 1 Capsule(s) PO QD 01/27/2013 01/26/2013 Inactive Premarin 1.25 mg tablet RxNorm: 653231 1-2 Tablet(s) PO QD 01/28/20 13 06/25/2013 Inactive alprazolam 0.5 mg tablet RxNorm: 679413 1 Tablet(s) PO BID 01/28/20 13 02/25/2013 Inactive prn amlodipine 5 mg tablet RxNorm: 974625 1 Tablet(s) PO QD 01/27/2013 Inactive Celebrex 200 mg capsule RxNorm: 426785 1 Capsule(s) PO QD 01/27/2013 02/27/2013 Inactive gabapentin 600 mg tablet RxNorm: 688431 1 Tablet(s) PO QHS 01/16/20 13 07/22/2013 Inactive Soma 350 mg tablet RxNorm: 750141 1 Tablet(s) PO TID as needed for spasm 01/15/2013 No Stop Date Active hydrocodone 10 mg-acetaminophen 325 mg tablet RxNorm: 879146 2 1-2 Tablet(s) PO QID as needed for severe pain 01/15/2013 No Stop Date Active Soma 350 mg tablet RxNorm: 044102 1 Tablet(s) PO TID as needed for spasm 01/13/2013 No Stop Date Active alprazolam 0.5 mg tablet RxNorm: 729314 1 Tablet(s) PO BID 12/31/19 13 01/26/2013 Inactive prn diclofenac sodium 75 mg tablet,delayed release RxNorm: 74499 8 1 Tablet(s) PO BID for pain 12/09/2012 01/07/2013 Inactive gabapentin 600 mg tablet RxNorm: 352694 1 Tablet(s) PO QHS 12/10/19 13 01/07/2013 Inactive hydrocodone 10 mg-acetaminophen 325 mg tablet RxNorm: 708277 2 1-2 Tablet(s) PO QID as needed for severe pain 12/02/2012 No Stop Date Active Levaquin 750 mg tablet RxNorm: 917583 1 Tablet(s) PO QD 11/21/2012 Inactive Singulair 10 mg tablet RxNorm: 857592 1 Tablet(s) PO QD 11/11/2012 Inactive clonidine 0.2 mg tablet RxNorm: 364064 1 Tablet(s) PO TID 11/11/2012 04/15/2013 Inactive alprazolam 0.5 mg tablet RxNorm: 991633 1 Tablet(s) PO BID 11/12/19 13 12/10/2012 Inactive prn Klor-Con 8 mEq tablet,extended release RxNorm: 382400 1 Tablet( s) PO BID 11/11/2012 03/04/2013 Inactive hydrocodone 10 mg-acetaminophen 325 mg tablet RxNorm: 394517 2 1-2 Tablet(s) PO QID as needed for severe pain 11/06/2012 No Stop Date Active alprazolam 0.5 mg tablet RxNorm: 066802 1 Tablet(s) PO BID 10/15/19 13 11/10/2012 Inactive prn hydrocodone-acetaminophen 10 mg-325 mg tablet RxNorm: 872505 2 1-2 Tablet(s) PO QID as needed for severe pain 10/10/2012 10/09/2012 Inactive allopurinol 300 mg tablet RxNorm: 286722 1 Tablet(s) PO QD 09/20/19 13 12/18/2012 Inactive alprazolam 0.5 mg tablet RxNorm: 612358 1 Tablet(s) PO BID 09/17/19 13 10/14/2012 Inactive prn hydrocodone-acetaminophen 10 mg-325 mg tablet RxNorm: 962425 2 1-2 Tablet(s) PO QID as needed for severe pain 08/22/2012 08/21/2012 Inactive Norvasc 10 mg tablet RxNorm: 480094 1 Tablet(s) PO QD 08/12/201201/10 Inactive Premarin 1.25 mg tablet RxNorm: 441939 1-2 Tablet(s) PO QD 07/30/20 12 12/26/2012 Inactive alprazolam 0.5 mg tablet RxNorm: 157901 1 Tablet(s) PO BID 07/29/20 12 08/27/2012 Inactive prn Klor-Con 8 mEq tablet,extended release RxNorm: 938550 1 Tablet( s) PO BID 07/29/2012 11/10/2012 Inactive hydrocodone-acetaminophen 10 mg-325 mg tablet RxNorm: 313832 2 1-2 Tablet(s) PO QID as needed for severe pain 07/29/2012 No Stop Date Active Premarin 1.25 mg tablet RxNorm: 904840 1-2 Tablet(s) PO QD 07/29/20 12 07/29/2012 Inactive clonidine 0.2 mg tablet RxNorm: 032774 1 Tablet(s) PO TID 07/29/2012 10/28/2012 Inactive ketorolac 10 mg tablet RxNorm: 159169 1 Tablet(s) PO QID prn he adache 07/18/2012 No Stop Date Active hydrocodone-acetaminophen 10 mg-325 mg tablet RxNorm: 167868 2 1-2 Tablet(s) PO QID as needed for severe pain 07/03/2012 No Stop Date Active amlodipine 5 mg tablet RxNorm: 927649 1 Tablet(s) PO QD 07/02/2012 Inactive allopurinol 300 mg tablet RxNorm: 193009 1 Tablet(s) PO QD 07/02/20 12 09/19/2012 Inactive Celebrex 200 mg capsule RxNorm: 715951 1 Capsule(s) PO QD for j oint pain 06/26/2012 10/23/2012 Inactive diclofenac sodium 75 mg tablet,delayed release RxNorm: 43909 8 1 Tablet(s) PO BID for pain 06/19/2012 09/16/2012 Inactive hydrocodone-acetaminophen 10 mg-325 mg tablet RxNorm: 082713 2 1-2 Tablet(s) PO QID as needed for severe pain 06/10/2012 No Stop Date Active alprazolam 0.5 mg tablet RxNorm: 213218 1 Tablet(s) PO BID 06/03/20 12 07/02/2012 Inactive prn ketorolac 10 mg tablet RxNorm: 950253 1 Tablet(s) PO Q8H 05/27/2012 0 01/21/2019 Inactive as needed for headache hydrocodone-acetaminophen 10 mg-325 mg tablet RxNorm: 642118 2 1-2 Tablet(s) PO QID as needed for severe pain 05/15/2012 No Stop Date Active allopurinol 300 mg tablet RxNorm: 696957 1 Tablet(s) PO QD 05/14/20 12 06/12/2012 Inactive allopurinol 300 mg tablet RxNorm: 892593 1 Tablet(s) PO QD 05/14/20 12 05/13/2012 Inactive amlodipine 5 mg tablet RxNorm: 280805 1 Tablet(s) PO QD 05/01/2012 Inactive amlodipine 5 mg Tab RxNorm: 237290 1 Tablet(s) PO QD 05/01/201204/30 Inactive Celebrex 200 mg capsule RxNorm: 456225 1 Capsule(s) PO QD for j oint pain 05/01/2012 06/25/2012 Inactive Singulair 10 mg tablet RxNorm: 377443 1 Tablet(s) PO QD 05/01/2012 Inactive alprazolam 0.5 mg tablet RxNorm: 760030 1 Tablet(s) PO BID 05/01/2005/30/2012 Inactive prn Celebrex 200 mg Cap RxNorm: 427407 1 Capsule(s) PO QD for joint radu n 05/01/2012 04/30/2012 Inactive hydrocodone-acetaminophen 10 mg-325 mg tablet RxNorm: 223110 2 1-2 Tablet(s) PO QID as needed for severe pain 04/19/2012 No Stop Date Active Lasix 40 mg tablet RxNorm: 458090 1 Tablet(s) PO CORTEZM alan purdyuld take potassium supplementation with this medication 04/05/2012 06/03/2012 Inactive alprazolam 0.5 mg Tab RxNorm: 255369 1 Tablet(s) PO BID 04/05/2012 Inactive prn hydrocodone-acetaminophen 10 mg-325 mg Tab RxNorm: 0932739 1-2 Tablet(s) PO QID as needed for severe pain 03/25/2012 03/24/2012 Inactive clonidine 0.2 mg Tab RxNorm: 060813 1 Tablet(s) PO TID 03/08/2012 Inactive alprazolam 0.5 mg Tab RxNorm: 886241 1 Tablet(s) PO BID 03/08/2012 Inactive prn Soma 350 mg tablet RxNorm: 242363 1 Tablet(s) PO TID for spasm 02/0903/18/2012 Inactive clonidine 0.2 mg tablet RxNorm: 048437 1 Tablet(s) PO TID 03/08/2012 07/28/2012 Inactive Celebrex 200 mg Cap RxNorm: 117351 1 Capsule(s) PO QD for joint radu n 03/01/2012 04/29/2012 Inactive amlodipine 5 mg Tab RxNorm: 566455 1 Tablet(s) PO QD 02/26/201202/24 Inactive amlodipine 5 mg Tab RxNorm: 358922 1 Tablet(s) PO QD 02/26/201204/25 Inactive Bactroban 2 % Ointment RxNorm: 718756 Application TOP QID to sores 02/23/2012 No Stop Date Active amlodipine 2.5 mg tablet RxNorm: 954235 1 Tablet(s) PO QHS 02/20/20 12 02/25/2012 Inactive doxycycline hyclate 100 mg Cap RxNorm: 7356837 1 Capsule(s) PO BID 02/20/2012 02/29/2012 Inactive hydrocodone-acetaminophen 10 mg-325 mg Tab RxNorm: 7658121 1-2 T ablet(s) PO QID 02/08/2012 No Stop Date Active alprazolam 0.5 mg Tab RxNorm: 317479 1 Tablet(s) PO BID 02/08/2012 Inactive prn Singulair 10 mg Tab RxNorm: 413825 1 Tablet(s) PO QD 02/08/201204/30 Inactive Soma 350 mg Tab RxNorm: 204096 1 Tablet(s) PO TID for spasm 012 03/07/2012 Inactive Soma 350 mg Tab RxNorm: 326909 1 Tablet(s) PO TID for spasm 012 02/05/2012 Inactive diclofenac sodium 75 mg tablet,delayed release RxNorm: 13786 8 1 Tablet(s) PO BID for pain 02/01/2012 03/18/2012 Inactive Celebrex 200 mg Cap RxNorm: 178274 1 Capsule(s) PO QD for joint radu n 01/30/2012 02/28/2012 Inactive Lasix 40 mg Tab RxNorm: 648401 1 Tablet(s) PO QAM 01/24/2012 03/18/20 12 Inactive potassium chloride ER 20 mEq tablet,extended release(part/cr yst) RxNorm: 618944 2 Tablet(s) PO BID 01/24/2012 02/22/2012 Inactive alprazolam 0.5 mg Tab RxNorm: 303517 1 Tablet(s) PO BID 01/11/2012 Inactive prn hydrocodone-acetaminophen 10 mg-325 mg Tab RxNorm: 4968594 1-2 T ablet(s) PO QID 01/11/2012 No Stop Date Active Ambien 10 mg Tab RxNorm: 666473 1 Tablet(s) PO QHS 01/11/2012 012 Inactive Klor-Con 8 mEq Tab RxNorm: 894727 1 Tablet(s) PO BID 01/11/201201/22 Inactive diclofenac sodium 75 mg Tab, Delayed Release RxNorm: 495191 1 Tablet(s) PO BID for pain 01/10/2012 01/31/2012 Inactive Ambien 10 mg Tab RxNorm: 817567 1 Tablet(s) PO QHS 12/11/2011 012 Inactive alprazolam 0.5 mg Tab RxNorm: 879294 1 Tablet(s) PO BID 12/11/2011 Inactive prn hydrocodone 10 mg-acetaminophen 325 mg tablet RxNorm: 248791 1-2 Tablet(s) PO TID 11/28/2011 No Stop Date Active as needed for pa in - Previous quantity #240, will start dosing for #180 in April 2011 per Doctor Td. Ambien 10 mg Tab RxNorm: 121359 1 Tablet(s) PO QHS 11/09/2011 012 Inactive alprazolam 0.5 mg Tab RxNorm: 814525 1 Tablet(s) PO BID 11/09/2011 Inactive prn hydrocodone-acetaminophen 10 mg-325 mg Tab RxNorm: 5737916 1-2 T ablet(s) PO TID 11/06/2011 No Stop Date Active as needed for pain - Previous quantity #240, will start dosing for #180 in April 2011 per Doctor Td. Singulair 10 mg Tab RxNorm: 254948 1 Tablet(s) PO QD 10/13/201110/12 Inactive Singulair 10 mg Tab RxNorm: 433805 1 Tablet(s) PO QD 10/13/201102/06 Inactive hydrocodone-acetaminophen 10 mg-325 mg Tab RxNorm: 4937576 1-2 T ablet(s) PO TID 10/10/2011 10/09/2011 Inactive as needed for pain - Previous quantity #240, will start dosing for #180 in April 2011 per Doctor Td. hydrocodone-acetaminophen 10 mg-325 mg Tab RxNorm: 2242572 1-2 T ablet(s) PO TID 10/09/2011 No Stop Date Active as needed for pain - Previous quantity #240, will start dosing for #180 in April 2011 per Doctor Td. Klor-Con 8 mEq Tab RxNorm: 193679 1 Tablet(s) PO BID 10/02/201101/09 Inactive triamterene 75 mg-hydrochlorothiazide 50 mg tablet RxNorm: 3 85005 1 Tablet(s) PO QD 09/14/2011 03/06/2013 Inactive Ambien 10 mg Tab RxNorm: 500634 1 Tablet(s) PO QHS 09/14/2011 012 Inactive hydrocodone-acetaminophen 10 mg-325 mg Tab RxNorm: 3875328 1-2 T ablet(s) PO TID 09/14/2011 No Stop Date Active as needed for pain - Previous quantity #240, will start dosing for #180 in April 2011 per Doctor Td. alprazolam 0.5 mg Tab RxNorm: 176366 1 Tablet(s) PO BID 09/14/2011 Inactive prn Zithromax 500 mg Tab RxNorm: 737758 1 Tablet(s) PO QD 09/13/201109/10 Inactive prednisone 20 mg Tab RxNorm: 281975 1 Tablet(s) PO BID 08/31/2011 Inactive Ambien 10 mg Tab RxNorm: 818457 1 Tablet(s) PO QHS 08/17/2011 011 Inactive hydrocodone-acetaminophen 10 mg-325 mg Tab RxNorm: 2709534 1-2 T ablet(s) PO TID 08/17/2011 No Stop Date Active as needed for pain - Previous quantity #240, will start dosing for #180 in April 2011 per Doctor Td. clonidine 0.2 mg Tab RxNorm: 046978 1 Tablet(s) PO TID 08/17/201112/2011 Inactive Ambien 10 mg Tab RxNorm: 251899 1 Tablet(s) PO QHS 08/17/2011 019 Inactive alprazolam 0.5 mg Tab RxNorm: 092025 1 Tablet(s) PO BID 08/17/2011 Inactive prn hydrocodone-acetaminophen 10 mg-325 mg Tab RxNorm: 9085993 1-2 T ablet(s) PO TID 08/17/2011 08/16/2011 Inactive as needed for pain - Previous quantity #240, will start dosing for #180 in April 2011 per Doctor Td. Singulair 10 mg Tab RxNorm: 393663 1 Tablet(s) PO QD 08/17/201108/16 Inactive Klor-Con 8 mEq Tab RxNorm: 197673 1 Tablet(s) PO QD 08/17/20112011 Inactive alprazolam 0.5 mg Tab RxNorm: 398229 1 Tablet(s) PO BID 07/20/2011 Inactive prn Ambien 10 mg Tab RxNorm: 808230 1 Tablet(s) PO QHS 07/20/2011 012 Inactive Singulair 10 mg Tab RxNorm: 117037 1 Tablet(s) PO QD 07/20/201107/19 Inactive Premarin 1.25 mg tablet RxNorm: 059441 2 Tablet(s) PO QD 07/20/2011 0 01/21/2019 Inactive Premarin 1.25 mg tablet RxNorm: 070074 1-2 Tablet(s) PO QD 07/20/20 11 12/16/2011 Inactive Premarin 1.25 mg Tab RxNorm: 291864 1-2 Tablet(s) PO QD 07/06/2011 Inactive alprazolam 0.5 mg Tab RxNorm: 880014 1 Tablet(s) PO BID 06/22/2011 Inactive prn alprazolam 0.5 mg Tab RxNorm: 653572 1 Tablet(s) PO BID 06/22/2011 Inactive prn Premarin 1.25 mg Tab RxNorm: 773612 1 Tablet(s) PO QD m ay do 90 day fill if desired 06/22/2011 07/05/2011 Inactive hydrocodone-acetaminophen 10 mg-325 mg Tab RxNorm: 3537727 1-2 T ablet(s) PO TID 06/22/2011 No Stop Date Active as needed for pain - Previous quantity #240, will start dosing for #180 in April 2011 per Doctor Td. clonidine 0.2 mg Tab RxNorm: 733808 1 Tablet(s) PO TID 05/25/201103/2011 Inactive triamterene-hydrochlorothiazide 75 mg-50 mg Tab RxNorm: 3108 18 1 Tablet(s) PO QD 05/25/2011 09/13/2011 Inactive alprazolam 0.5 mg Tab RxNorm: 543071 1 Tablet(s) PO BID 05/25/2011 Inactive prn hydrocodone-acetaminophen 10 mg-325 mg Tab RxNorm: 5156903 1-2 T ablet(s) PO TID 05/25/2011 No Stop Date Active as needed for pain - Previous quantity #240, will start dosing for #180 in April 2011 per Doctor Td. Robaxin-750 750 mg Tab RxNorm: 269786 2 Tablet(s) PO QHS 05/22/2011 1 Inactive prn spasm hydrocodone-acetaminophen 10 mg-325 mg Tab RxNorm: 8296501 1-2 T ablet(s) PO TID 04/26/2011 No Stop Date Active as needed for pain - Previous quantity #240, will start dosing for #180 in April 2011 per Doctor Td. alprazolam 0.5 mg Tab RxNorm: 169269 1 Tablet(s) PO BID 04/25/2011 Inactive prn Klor-Con 8 mEq Tab RxNorm: 435523 1 Tablet(s) PO QD 03/30/20112010 Inactive Klor-Con 8 mEq Tab RxNorm: 360020 1 Tablet(s) PO QD 03/29/20112010 Inactive hydrocodone-acetaminophen 10 mg-325 mg Tab RxNorm: 2778636 1-2 T ablet(s) PO TID 03/20/2011 04/25/2011 Inactive as needed for pain - Previous quantity #240, will start dosing for #180 in April 2011 per Doctor Td. alprazolam 0.5 mg Tab RxNorm: 770687 1 Tablet(s) PO BID prn 011 03/30/2011 Inactive Ambien 10 mg Tab RxNorm: 533600 1 Tablet(s) PO QHS 03/01/2011 011 Inactive cyclobenzaprine 10 mg Tab RxNorm: 400053 1 Tablet(s) PO TID 011 03/18/2012 Inactive cyclobenzaprine 10 mg Tab RxNorm: 013169 1 Tablet(s) PO TID 011 01/08/2011 Inactive cyclobenzaprine 10 mg Tab RxNorm: 136571 1 Tablet(s) PO TID 011 12/20/2010 Inactive terbinafine 250 mg Tab RxNorm: 824469 1 Tablet(s) PO QD 12/12/2010 Inactive triamterene-hydrochlorothiazide 75 mg-50 mg Tab RxNorm: 3108 18 1 Tablet(s) PO QD 12/07/2010 01/12/2020 Inactive Klor-Con 8 8 mEq Tab RxNorm: 954304 1 Tablet(s) PO QD 12/07/201001/08 Inactive Premarin 1.25 mg Tab RxNorm: 245463 2 Tablet(s) PO QD 12/07/201001/08 Inactive clonidine 0.2 mg Tab RxNorm: 555071 1 Tablet(s) PO TID 12/07/2010 Inactive hydrocodone-acetaminophen 7.5 mg-650 mg Tab RxNorm: 387742 1 Ta blet(s) PO Q4H 12/05/2010 01/21/2019 Inactive hydrocodone-acetaminophen 7.5 mg-650 mg Tab RxNorm: 054609 1 Ta blet(s) PO Q4H 10/26/2010 11/14/2010 Inactive hydrocodone-acetaminophen 7.5 mg-650 mg Tab RxNorm: 414311 1 Ta blet(s) PO Q4H 10/13/2010 10/25/2010 Inactive hydrocodone-acetaminophen 7.5 mg-650 mg Tab RxNorm: 202369 1 Ta blet(s) PO Q4H 09/15/2010 09/12/2010 Inactive alprazolam 0.5 mg Tab RxNorm: 611234 1 Tablet(s) PO BID prn 011 09/12/2010 Inactive terbinafine 250 mg Tab RxNorm: 547515 1 Tablet(s) PO QD 09/05/2010 Inactive hydrocodone-acetaminophen 7.5 mg-650 mg Tab RxNorm: 903391 1 Ta blet(s) PO Q4H 08/29/2010 09/17/2010 Inactive alprazolam 0.5 mg Tab RxNorm: 815289 1 Tablet(s) PO BID prn 010 09/27/2010 Inactive alprazolam 0.5 mg Tab RxNorm: 748031 1 Tablet(s) PO BID prn 010 09/06/2010 Inactive Klor-Con 8 mEq Tab RxNorm: 356344 1 Tablet(s) PO QD 08/08/20102010 Inactive hydrocodone-acetaminophen 7.5 mg-650 mg Tab RxNorm: 959413 1 Ta blet(s) PO Q4H 08/08/2010 08/27/2010 Inactive Ambien 10 mg Tab RxNorm: 098965 1 Tablet(s) PO QHS 08/08/2010 Inactive clonidine 0.2 mg Tab RxNorm: 049544 1 Tablet(s) PO TID 08/08/2010 Inactive Premarin 1.25 mg Tab RxNorm: 088139 2 Tablet(s) PO QD 08/08/201009/12 Inactive Ambien 10 mg Tab RxNorm: 948714 1 Tablet(s) PO QHS 07/18/2010 Inactive alprazolam 0.5 mg Tab RxNorm: 506503 1 Tablet(s) PO BID prn 010 08/07/2010 Inactive hydrocodone-acetaminophen 7.5 mg-650 mg Tab RxNorm: 409291 1 Ta blet(s) PO Q4H 07/12/2010 07/31/2010 Inactive clonidine 0.2 mg Tab RxNorm: 157106 1 Tablet(s) PO TID 06/20/2010 Inactive terbinafine 250 mg Tab RxNorm: 194214 1 Tablet(s) PO QD 05/24/2010 Inactive Clonidine 0.2 mg Tab RxNorm: 413439 1 Tablet(s) PO TID 05/24/201006/2010 Inactive Ambien 10 mg Tab RxNorm: 212675 1 Tablet(s) PO QHS 05/24/2010 010 Inactive alprazolam 0.5 mg Tab RxNorm: 561875 1 Tablet(s) PO BID 05/24/2010 Inactive Klor-Con 8 mEq Tab RxNorm: 640240 1 Tablet(s) PO QD 05/24/20102009 Inactive alprazolam 0.5 mg Tab RxNorm: 048859 2 Tablet(s) PO QD prn 05/24/2007/17/2010 Inactive triamterene-hydrochlorothiazide 75 mg-50 mg Tab RxNorm: 3108 18 1 Tablet(s) PO QD 05/24/2010 11/19/2010 Inactive Ambien 10 mg Tab RxNorm: 089431 1 Tablet(s) PO QHS 05/23/2010 010 Inactive Alprazolam 0.5 mg Tab RxNorm: 506280 2 Tablet(s) PO QD prn 05/23/2005/23/2010 Inactive Premarin 1.25 mg Tab RxNorm: 600118 2 Tablet(s) PO QD 05/19/201007/12 Inactive Hydrocodone-Acetaminophen 7.5 mg-650 mg Tab RxNorm: 177743 1 Ta blet(s) PO Q4H 05/19/2010 03/20/2011 Inactive Prednisone 20 mg Tab RxNorm: 892408 1 Tablet(s) PO BID 05/17/2010 Inactive Prednisone 20 mg Tab RxNorm: 445061 1 Tablet(s) PO BID 05/06/201001/2010 Inactive Premarin 1.25 mg Tab RxNorm: 760514 Tablet(s) PO 2 M-W-F, and 1 Dp-Pd-Lhv-Sun 05/05/2010 08/02/2010 Inactive Premarin 1.25 mg Tab RxNorm: 574705 Tablet(s) PO 2 M-W-F, and 1 Tn-Td-YwbSun 05/04/2010 05/04/2010 Inactive Premarin 1.25 mg Tab RxNorm: 736781 Tablet(s) PO 2 M-W-F, and 1 Yp-Qh-RhqSun 05/04/2010 05/03/2010 Inactive Prednisone 20 mg Tab RxNorm: 285773 1 Tablet(s) PO BID 04/27/2010 Inactive Alprazolam 0.5 mg Tab RxNorm: 284991 2 Tablet(s) PO QD prn 04/26/20 10 05/22/2010 Inactive Clindamycin 300 mg Cap RxNorm: 171792 2 Capsule(s) PO TID 04/05/2010 04/18/2010 Inactive Terbinafine 250 mg Tab RxNorm: 694057 1 Tablet(s) PO QD 04/04/2010 Inactive Hydrocodone-Acetaminophen 7.5 mg-650 mg Tab RxNorm: 591138 1 Ta blet(s) PO Q4H 03/30/2010 04/18/2010 Inactive Avelox 400 mg Tab RxNorm: 993598 1 Tablet(s) PO QD 03/09/2010 010 Inactive Hydrocodone-Acetaminophen 7.5 mg-650 mg Tab RxNorm: 558348 1 Ta blet(s) PO Q4H 03/08/2010 03/27/2010 Inactive Alprazolam 0.5 mg Tab RxNorm: 548028 2 Tablet(s) PO QD prn 03/08/20 10 04/25/2010 Inactive Klor-Con 8 mEq Tab RxNorm: 267827 1 Tablet(s) PO QD when takes lasi x 03/07/2010 09/29/2019 Inactive Premarin 1.25 mg Tab RxNorm: 542383 1 Tablet(s) PO QD 03/03/201003/11 Inactive Alprazolam 0.5 mg Tab RxNorm: 707659 1 Tablet(s) PO BID PRN 010 No Stop Date Active triamterene-hydrochlorothiazide 75 mg-50 mg Tab RxNorm: 3108 18 1 Tablet(s) PO QD 02/09/2010 02/03/2011 Inactive Hydrocodone-Acetaminophen 10 mg-750 mg Tab RxNorm: 218051 1 Tablet(s) PO Q4H PRN 02/09/2010 03/20/2011 Inactive Clonidine 0.2 mg Tab RxNorm: 047682 1 Tablet(s) PO TID 01/13/201009/2009 Inactive Alprazolam 0.5 mg Tab RxNorm: 090254 1 Tablet(s) PO BID PRN 010 01/12/2010 Inactive Hydrocodone-Acetaminophen 10 mg-750 mg Tab RxNorm: 608156 1 Tablet(s) PO Q4H PRN 01/13/2010 01/12/2010 Inactive ANGELIQ 1 mg-0.5 mg Tab RxNorm: 6557681 1 Tablet(s) PO QD 12/27/2009 01/23/2010 Inactive Lasix 40 mg Tab RxNorm: 234431 1 Tablet(s) PO QAM 12/14/2009 06/11/20 10 Inactive Vitamin B12 1000mcg Tablet RxNorm: 1 Tablet(s) PO QD No Start Date Active cyclobenzaprine 10 mg tablet RxNorm: 007469 1 Tablet(s) PO TID as needed DO NOT USE WITH BACLOFEN No Start Date Active Vitamin D 5,000 unit Tab RxNorm: 1 Tablet(s) PO QD No Start Date Active vitamin E (dl, acetate) 400 unit Cap RxNorm: 091713 1 Capsule(s ) PO QD No Start Date Active Benadryl 25 mg Cap RxNorm: 4711896 Capsule(s) PO PRN No Start Date Inactive amitriptyline 100 mg tablet RxNorm: 843732 1 Tablet(s) PO QHS No St art Date 11/27/2016 Inactive Zithromax Z-Dustin 250 mg tablet RxNorm: 821687 Tablet(s) PO as di rected No Start Date 07/22/2013 Inactive Klor-Con 8 mEq tablet,extended release RxNorm: 679951 1 Tablet( s) PO BID No Start Date 07/28/2012 Inactive scopolamine 1.5 mg 72 hr Transderm Patch RxNorm: 046912 Application TD Q72H for motion sickness No Start Date 05/25/2013 Inactive Klonopin 1 mg tablet RxNorm: 613153 1-2 Tablet(s) PO QHS as nee ded for sleep No Start Date 06/20/2015 Inactive Klor-Con M20 mEq tablet,extended release RxNorm: 607504 2 Tablet(s) PO BID to use with lasix No Start Date 11/11/2013 Inactive Bystolic 5 mg tablet RxNorm: 280653 1 Tablet(s) PO QD No Start Date 1 Inactive Bystolic 10 mg tablet RxNorm: 218109 1 Tablet(s) PO BID No Start Da te 07/06/2015 Inactive Premarin 1.25 mg Tab RxNorm: 217511 Tablet(s) PO 2 -W-, and 1 Xr-[id number]-Jou-Sun No Start Date 05/03/2010 Inactive baclofen 20 mg tablet RxNorm: 913613 1 Tablet(s) PO TID as needed for muscle spasm No Start Date 07/22/2015 Inactive hydrocodone-acetaminophen 7.5 mg-650 mg Tab RxNorm: 802243 1 Tablet(s) PO Q4H as needed for pain No Start Date 03/20/2011 Inactive albuterol sulfate 1.25 mg/3 mL Neb Solution RxNorm: 281938 1 Unit Dose INH Q4H 2boxes No Start Date 09/06/2015 Inactive Butrans 20 mcg/hour Transderm Patch RxNorm: 397049 1 TD WEEKLY apply to skin weekly after removing previous. No Start Date 07/22/2013 Inactive Medrol (Dustin) 4 mg tablets in a dose pack RxNorm: 988590 Tablet(s) PO As Directed No Start Date 07/30/2016 Inactive hydrocodone-acetaminophen 10 mg-325 mg Tab RxNorm: 5650710 1-2 Tablet(s) PO TID as needed for pain No Start Date 03/19/2011 Inactive Klonopin 1 mg tablet RxNorm: 150006 1 Tablet(s) PO QHS No Start Date 02/28/2016 Inactive honey topical RxNorm: topical No Start Date 06/16/2018 Inactive Clonidine 0.2 mg Tab RxNorm: 852971 1 Tablet(s) PO TID No Start Date 01/12/2010 Inactive ketorolac 10 mg tablet RxNorm: 170253 1 Tablet(s) PO Q8H No Start D ate 03/18/2012 Inactive as needed for headache Singulair 10 mg Tab RxNorm: 425062 1 Tablet(s) PO QD No Start Date Inactive Premarin 1.25 mg Tab RxNorm: 697928 1 Tablet(s) PO QD No Start Date Inactive Flonase 50 mcg/Actuation Nasal [place] RxNorm: 9954824 1 [place] CEC[place] AL BID No Start Date 03/18/2012 Inactive Terbinafine 250 mg Tab RxNorm: 204469 1 Tablet(s) PO QD No Start Da te 04/03/2010 Inactive Fexofenadine 180 mg Tab RxNorm: 9906442 1 Tablet(s) PO QD No Start Date 09/06/2015 Inactive baclofen 20 mg tablet RxNorm: 561277 1 Tablet(s) PO TID as needed N o Start Date 05/25/2014 Inactive Diovan 160 mg Tab RxNorm: 139184 1 Tablet(s) PO QD No Start Date 09/12 Inactive mupirocin 2 % topical ointment RxNorm: 548754 1 Application TOP QID No Start Date 04/25/2016 Inactive ZOFRAN ODT 4 mg Tab, Rapid Dissolve RxNorm: 622095 1 Tablet(s) PO Q4H No Start Date 03/18/2012 Inactive as needed for nausea and vomiting Alprazolam 0.5 mg Tab RxNorm: 823865 1 Tablet(s) PO BID PRN No Star t Date 01/12/2010 Inactive cyclobenzaprine 10 mg tablet RxNorm: 351310 1 Tablet(s) PO TID as needed for muscle spasm No Start Date 10/08/2017 Inactive Albuterol 0.083% Aerosol Solution RxNorm: 1 Appl ication INH Q4H Use one ampule every 4 hrs with nebulizer as needed for shortness of breath. No Start Date 10/09/2010 Inactive lorazepam 1 mg tablet RxNorm: 985486 1 1/2 Tablet(s) PO QHS No Star t Date 02/02/2016 Inactive Melatonin 3 mg Tab RxNorm: 242729 Tablet(s) PO PRN No Start Date 07/11 Inactive Medrol (Dustin) 4 mg Tabs in a Dose Pack RxNorm: 997385 Tablet(s) PO N o Start Date 11/28/2010 Inactive lorazepam 1 mg tablet RxNorm: 879468 1 Tablet(s) PO QHS as need ed for sleep No Start Date 01/30/2016 Inactive hydrocodone-acetaminophen 10 mg-325 mg Tab RxNorm: 3329876 1-2 Tablet(s) PO QID as needed for severe pain No Start Date 03/24/2012 Inactive celecoxib 200 mg capsule RxNorm: 540743 1 Capsule(s) PO BID No Star t Date 06/26/2019 Inactive amlodipine 5 mg-benazepril 20 mg capsule RxNorm: 607860 1 Capsu le(s) PO QD No Start Date 04/10/2017 Inactive Bystolic 20 mg tablet RxNorm: 802630 1/2 Tablet(s) PO QAM No Start Date 01/23/2016 Inactive Bystolic 20 mg tablet RxNorm: 049397 1 Tablet(s) PO QAM No Start Da te 04/25/2016 Inactive Ambien 10 mg Tab RxNorm: 435684 1 Tablet(s) PO QHS No Start Date 05/11 Inactive Klor-Con 8 mEq Tab RxNorm: 097122 1 Tablet(s) PO QD when takes lasix No Start Date 03/06/2010 Inactive aspirin 81 mg tablet RxNorm: 109162 1 Tablet(s) PO QD No Start Date 0 01/29/2018 Inactive hydrocodone-acetaminophen 10 mg-325 mg Tab RxNorm: 1598358 1-2 T ablet(s) PO QID No Start Date 01/10/2012 Inactive Bystolic 10 mg tablet RxNorm: 843577 1 Tablet(s) PO QAM take one daily in the morning. No Start Date 05/28/2013 Inactive nystatin 100,000 unit/mL Oral Susp RxNorm: 610610 5 Milliliter( s) PO QID No Start Date 03/18/2012 Inactive swish and spit scopolamine 1.5 mg 72 hr Transderm Patch RxNorm: 890809 1 Unit Dose TD Q72H for motion sickness No Start Date 12/23/2013 Inactive Hydrocodone-Acetaminophen 10 mg-750 mg Tab RxNorm: 963342 1 Tablet(s) PO Q4H PRN No Start Date 01/12/2010 Inactive Soma 350 mg tablet RxNorm: 623526 1 Tablet(s) PO TID as needed for spasm No Start Date 01/12/2013 Inactive baclofen 10 mg tablet RxNorm: 513828 1 Tablet(s) PO TID as needed for muscle spasm No Start Date 09/18/2019 Inactive Soma 350 mg Tab RxNorm: 628087 1 Tablet(s) PO TID for spasm No Star t Date 01/31/2012 Inactive Co Q-10 400 mg capsule RxNorm: 943322 1 Capsule(s) PO QD No Start D ate 01/21/2019 Inactive nystatin 100,000 unit/gram topical cream RxNorm: 180753 Applica tion TOP BID No Start Date 03/22/2015 Inactive Exforge 5 mg-160 mg Tab RxNorm: 746256 1 Tablet(s) PO QD No Start D ate 10/09/2010 Inactive Hydrocodone-Acetaminophen 7.5 mg-650 mg Tab RxNorm: 409271 1 Ta blet(s) PO Q4H No Start Date 03/07/2010 Inactive Robaxin-750 750 mg Tab RxNorm: 325972 1-2 Tablet(s) PO TID prn spasm No Start Date 05/21/2011 Inactive amlodipine 5 mg tablet RxNorm: 957761 1 Tablet(s) PO QHS No Start D ate 09/29/2015 Inactive oxycodone-acetaminophen 10 mg-325 mg tablet RxNorm: 6060294 1-2 Tablet(s) PO Q6H No Start Date 06/16/2018 Inactive Triamterene-Hydrochlorothiazide 75 mg-50 mg Tab RxNorm: 3108 18 1 Tablet(s) PO QD No Start Date 02/08/2010 Inactive Alprazolam 0.5 mg Tab RxNorm: 196456 2 Tablet(s) PO QD prn No Start Date 03/07/2010 Inactive Bystolic 20 mg tablet RxNorm: 121592 1 Tablet(s) PO QAM No Start Da te 08/17/2015 Inactive ketorolac 10 mg tablet RxNorm: 276167 1 Tablet(s) PO QID prn he adache No Start Date 07/17/2012 Inactive acyclovir 800 mg Tab RxNorm: 759548 1 Tablet(s) PO BID No Start Date 03/18/2012 Inactive duloxetine 60 mg capsule,delayed release RxNorm: 717220 1 Capsu le(s) PO QD No Start Date 09/29/2015 Inactive Norvasc 5 mg tablet RxNorm: 700464 1 Tablet(s) PO QHS No Start Date 1 10/18/2014 Inactive promethazine 25 mg tablet RxNorm: 029665 1 Tablet(s) PO Q8H use sparingly No Start Date 07/22/2013 Inactive alprazolam 0.5 mg tablet RxNorm: 716439 3 Tablet(s) PO QHS No Start Date 06/06/2015 Inactive Lunesta 3 mg tablet RxNorm: 662878 1 Tablet(s) PO QHS No Start Date 0 09/20/2017 Inactive hydrocodone-acetaminophen 10 mg-325 mg Tab RxNorm: 5108971 1-2 Tablet(s) PO TID as needed for pain No Start Date 12/10/2011 Inactive Coricidin HBP Cough & Cold 4 mg-30 mg Tab RxNorm: 6302844 Tablet (s) PO PRN No Start Date 10/09/2010 Inactive Bactroban 2 % Ointment RxNorm: 504357 Application TOP QID to so res No Start Date 02/22/2012 Inactive Flonase 50 mcg/actuation Nasal [place] RxNorm: 768185 2 [place] QHS No Start Date 03/03/2014 Inactive Medication Administered No Medication Administered data Immunizations Vaccine Codes Date Status Tetanus, Diptheria, Pertussis CVX: 115 02/27/2014 Results Observation Observation Code Item Item Code Result Date S ervice Location [facility] 54389 AST 15 U/L 2019 Unknown [facility] 63336 ALT 13 U/L 2019 Unknown [facility] 75025 BUN 12 mg/dL 2019 Unknown [facility] 73964 ALBUMIN 3.9 g/dL 2019 Unknown [facility] 79094 CHLORIDE 97 mmol/L 2019 Unknown [facility] 94612 Bili Total 0.4 mg/dL 09/29 Unknown [facility]PREH[facility] MET[facility]OL[facility] 80438 ALK PHOS 130 U/L 2019 Unknown [facility] 13173 SODIUM 136 mmol/L 09/29 Unknown [facility] 13539 CREATININE 0.92 mg/dL 09/11 Unknown [facility] 11074 CALCIUM 9.1 mg/dL 2019 Unknown [facility] 75682 POTASSIUM 4.4 mmol/L 09/29 Unknown [facility] MET[facility] 63959 Total Protein 6.2 g/dL Unknown [facility] 75365 Glucose 391 mg/dL 2019 Unknown [facility] 11866 Bicarbonate 30 mmol/L 09/11 Unknown COMPREHENSIVE METABOLIC 09752 AGAP 9 mmol/L 2019 Unknown MEAN GLUC 3257110 Calc Mean Gluc 332 mg/dL 09/29/2019 Unkn own COMPLETE BLOOD COUNT [id number] WBC 7.0 10e9/L 09/29/19 Unknown COMPLETE BLOOD COUNT [id number] RBC 4.69 10e12/L 2019 Unknown COMPLETE BLOOD COUNT [id number] HEMOGLOBIN 14.6 g/dL 09/29/19 Unknown COMPLETE BLOOD COUNT [id number] HEMATOCRIT 45.2 % 09/29/19 Unknown COMPLETE BLOOD COUNT [id number] MCV 96.4 fL 0 Unknown COMPLETE BLOOD COUNT [id number] MCH 31.1 pg 0 Unknown COMPLETE BLOOD COUNT [id number] MCHC 32.3 g/dL 0 Unknown COMPLETE BLOOD COUNT [id number] PLATELET COUNT 209 10e9/L Unknown COMPLETE BLOOD COUNT 3984710 Mean Plt Volume 9.8 fL Unknown COMPLETE BLOOD COUNT 1232809 Neut Auto 48.1 % 0 Unknown COMPLETE BLOOD COUNT [id number] Lymph Auto 36.5 % 09/29/19 Unknown COMPLETE BLOOD COUNT [id number] [place] Auto 8.6 % 0 Unknown COMPLETE BLOOD COUNT [id number] RDW 13.4 % 0 Unknown COMPLETE BLOOD COUNT [id number] Eos Auto 6.5 % 0 Unknown COMPLETE BLOOD COUNT [id number] Baso Auto 0.3 % 0 Unknown COMPLETE BLOOD COUNT 1105748 Neutrophil Abs 3.37 10e9/L Unknown COMPLETE BLOOD COUNT 0960090 Lymphocyte Abs 2.56 10e9/L Unknown COMPLETE BLOOD COUNT [id number] Monocyte Abs 0.60 10e9/L 09/11 Unknown COMPLETE BLOOD COUNT [id number] Eosinophil Abs 0.46 10e9/L Unknown COMPLETE BLOOD COUNT [id number] Basophil Abs 0.02 10e9/L 09/11 Unknown COMPLETE BLOOD COUNT [id number] RDW-SD 45.9 fL 0 Unknown LIPID GROUP 31516 Cholesterol 248 mg/dL 09/29/2019 Unkno wn LIPID GROUP 73538 Triglyceride 898 mg/dL 09/29/2019 Unkn own LIPID GROUP 67212 HDL CHOLESTEROL 41 mg/dL 09/29/2019 U nknown LIP[facility] GROUP 87032 Chol/HDL Ratio 6.05 ratio 09/29/2019 U nknown LIP[facility] GROUP 78177 NON-HDL Chol 207 mg/dL 09/29/2019 Unkn own LIP[facility] GROUP 86225 LDL Cholesterol N/A Trig >400 020 Unknown GLYCOSYLATED HEMOGLOBIN TEST 15504 Hgb A1c 16082-9 13.2 % 0 09/29/2019 Unknown FREE T4 29169 T4 Free 0.75 ng/dL 09/29/2019 Unknown GFR CALC 9008583 GFR Non Afr Amr >60 mL/min 09/29/2019 Un known GFR CALC 5065826 GFR Afr Amr >60 mL/min 09/29/2019 Unknow n THYROID STIMULATING HORMONE 93099 TSH 4.245 uIU/mL 09/29/2019 Unknown COMPLETE BLOOD COUNT 8541983 WBC 10.7 10e9/L 018 Unknown COMPLETE BLOOD COUNT [id number] RBC 4.59 10e12/L 2017 Unknown COMPLETE BLOOD COUNT [id number] HEMOGLOBIN 14.8 g/dL 12/11/19 18 Unknown COMPLETE BLOOD COUNT [id number] HEMATOCRIT 44.9 % 12/11/19 18 Unknown COMPLETE BLOOD COUNT 9294308 MCV 97.8 fL 8 Unknown COMPLETE BLOOD COUNT 2991045 MCH 32.2 pg 8 Unknown COMPLETE BLOOD COUNT 9571126 MCHC 33.0 g/dL 8 Unknown COMPLETE BLOOD COUNT [id number] PLATELET COUNT 261 10e9/L 10/2017 Unknown COMPLETE BLOOD COUNT [id number] Mean Plt Volume 9.5 fL 10/2017 Unknown COMPLETE BLOOD COUNT [id number] Neut Auto 59.9 % 8 Unknown COMPLETE BLOOD COUNT [id number] Lymph Auto 27.4 % 12/11/19 18 Unknown COMPLETE BLOOD COUNT 2789468 [place] Auto 8.2 % 8 Unknown COMPLETE BLOOD COUNT 1099181 RDW 13.3 % 8 Unknown COMPLETE BLOOD COUNT 1537452 Eos Auto 4.1 % 8 Unknown COMPLETE BLOOD COUNT 7470468 Baso Auto 0.4 % 8 Unknown COMPLETE BLOOD COUNT [id number] Neutrophil Abs 6.41 10e9/L Unknown COMPLETE BLOOD COUNT [id number] Lymphocyte Abs 2.93 10e9/L Unknown COMPLETE BLOOD COUNT [id number] Monocyte Abs 0.88 10e9/L 10/2017 Unknown COMPLETE BLOOD COUNT [id number] Eosinophil Abs 0.44 10e9/L Unknown COMPLETE BLOOD COUNT [id number] RDW-SD 46.2 fL 8 Unknown COMPLETE BLOOD COUNT [id number] Basophil Abs 0.04 10e9/L 10/2017 Unknown THYROID STIMULATING HORMONE 97339 TSH 4.015 uIU/mL 12/10/2017 Unknown COMPREHENSIVE METABOLIC 27574 AST 25 U/L 2017 Unknown COMPREHENSIVE METABOLIC 46806 ALT 17 U/L 2017 Unknown COMPREHENSIVE METABOLIC 20247 BUN 19 mg/dL 2017 Unknown COMPREHENSIVE METABOLIC 50872 ALBUMIN 4.0 g/dL 2017 Unknown COMPREHENSIVE METABOLIC 18689 CHLORIDE 91 mmol/L 2017 Unknown COMPREHENSIVE METABOLIC 68467 Bili Total 0.5 mg/dL 12/10 Unknown COMPREHENSIVE METABOLIC 71764 ALK PHOS 75 U/L 2017 Unknown COMPREHENSIVE METABOLIC 99804 SODIUM 136 mmol/L 12/10 Unknown COMPREHENSIVE METABOLIC 49910 CREATININE 1.05 mg/dL 10/2017 Unknown COMPREHENSIVE METABOLIC 98107 CALCIUM 8.9 mg/dL 2017 Unknown COMPREHENSIVE METABOLIC 05793 POTASSIUM 3.4 mmol/L 12/10 Unknown COMPREHENSIVE METABOLIC 71676 Total Protein 6.5 g/dL Unknown COMPREHENSIVE METABOLIC 47926 Glucose 138 mg/dL 2017 Unknown COMPREHENSIVE METABOLIC 22314 Bicarbonate 35 mmol/L 10/2017 Unknown COMPREHENSIVE METABOLIC 99942 AGAP 10 mmol/L 2017 Unknown MEAN GLUC 6075289 Calc Mean Gluc 171 mg/dL 12/10/2017 Unkn own LIPID GROUP 64200 Cholesterol 204 mg/dL 12/10/2017 Unkno wn LIPID GROUP 86663 Triglyceride 411 mg/dL 12/10/2017 Unkn own LIP[facility] GROUP 25562 HDL CHOLESTEROL 50 mg/dL 12/10/2017 U nknown LIP[facility] GROUP 24714 Chol/HDL Ratio 4.08 ratio 12/10/2017 U nknown LIPID GROUP 06061 NON-HDL Chol 154 mg/dL 12/10/2017 Unkn own LIPID GROUP 77643 LDL Cholesterol N/A Trig >400 018 Unknown GLYCOSYLATED HEMOGLOBIN TEST 47777 Hgb A1c 21859-8 7.6 % 0 12/10/2017 Unknown FREE T4 28534 T4 Free 1.40 ng/dL 12/10/2017 Unknown GFR CALC 2035576 GFR Afr Amr >60 mL/min 12/10/2017 Unknow n GFR CALC 7176337 GFR Non Afr Amr 55 mL/min 12/10/2017 Unk lisan GFR CALC 1242367 GFR Afr Amr 59 mL/min 06/28/2017 Unknown GFR CALC 5313875 GFR Non Afr Amr 48 mL/min 06/28/2017 Unk lisan COMPREHENSIVE METABOLIC 25663 AST 32 U/L 2016 Unknown COMPREHENSIVE METABOLIC 47586 ALT 22 U/L 2016 Unknown COMPREHENSIVE METABOLIC 73463 BUN 23 mg/dL 2016 Unknown COMPREHENSIVE METABOLIC 42155 ALBUMIN 4.7 g/dL 2016 Unknown COMPREHENSIVE METABOLIC 63239 CHLORIDE 89 mmol/L 2016 Unknown COMPREHENSIVE METABOLIC 95025 Bili Total 0.5 mg/dL 06/28 Unknown COMPREHENSIVE METABOLIC 41063 ALK PHOS 90 U/L 2016 Unknown COMPREHENSIVE METABOLIC 67988 SODIUM 135 mmol/L 06/28 Unknown COMPREHENSIVE METABOLIC 24953 CREATININE 1.18 mg/dL 06/10 Unknown COMPREHENSIVE METABOLIC 23163 CALCIUM 9.7 mg/dL 2016 Unknown COMPREHENSIVE METABOLIC 64263 POTASSIUM 3.5 mmol/L 06/28 Unknown COMPREHENSIVE METABOLIC 55145 Total Protein 7.7 g/dL Unknown COMPREHENSIVE METABOLIC 48553 Glucose 129 mg/dL 2016 Unknown COMPREHENSIVE METABOLIC 98766 Bicarbonate 34 mmol/L 06/10 Unknown COMPREHENSIVE METABOLIC 65692 AGAP 12 mmol/L 2016 Unknown LIP[facility] GROUP 84198 HDL TEST 64 MG/DL 08/27/2014 Unknown L[facility] GROUP 54142 TRIG 222 MG/DL 08/27/2014 Unknown L[facility] GROUP 20832 TEST LDL 209 MG/DL 08/27/2014 Unknown LIP[facility] GROUP 33258 CHOL 317 MG/DL 08/27/2014 Unknown LIP[facility] GROUP 94894 RCHOL/HDL 4.95 RATIO 08/27/2014 Unknow n LIPID GROUP 31473 NON-HDL CH 253 MG/DL 08/27/2014 Unknow n GFR CALC 8074267 GFR AA >60 ML/MIN 08/27/2014 Unknown GFR CALC 5023964 GFR NON-AA >60 ML/MIN 08/27/2014 Unknown COMPLETE BLOOD COUNT 9907853 WBC 7.0 10e9/L 08/27/20 14 Unknown COMPLETE BLOOD COUNT 4176265 RBC 4.98 10e12/L 2013 Unknown COMPLETE BLOOD COUNT 9008252 HGB 15.6 g/dL 4 Unknown COMPLETE BLOOD COUNT 3450750 HCT DET 46.5 % 4 Unknown COMPLETE BLOOD COUNT 9015603 MCV 93.4 fL 4 Unknown COMPLETE BLOOD COUNT 6936458 MCH 31.3 pg 4 Unknown COMPLETE BLOOD COUNT 1241288 MCHC 33.5 g/dL 4 Unknown COMPLETE BLOOD COUNT 0227086 PLT 309 10e9/L 08/27/20 14 Unknown COMPLETE BLOOD COUNT 6926425 MPV 9.6 fL 4 Unknown COMPLETE BLOOD COUNT 9384929 CADEN % 57.2 % 4 Unknown COMPLETE BLOOD COUNT 0993979 LY % 33.2 % 4 Unknown COMPLETE BLOOD COUNT 4371442 MON % 7.3 % 4 Unknown COMPLETE BLOOD COUNT 0330730 EOS % 2.0 % 4 Unknown COMPLETE BLOOD COUNT 3413540 BASO % 0.3 % 4 Unknown COMPLETE BLOOD COUNT 1241875 RDW 13.7 % 4 Unknown COMPLETE BLOOD COUNT [id number] ABS CADEN 4.00 10e9/L 014 Unknown COMPLETE BLOOD COUNT 1260920 ABS LYMPH 2.32 10e9/L 014 Unknown COMPLETE BLOOD COUNT [id number] ABS MONO 0.51 10e9/L 014 Unknown COMPLETE BLOOD COUNT 1295634 ABS EOS 0.14 10e9/L 014 Unknown COMPLETE BLOOD COUNT 8229901 ABS BASO 0.02 10e9/L 014 Unknown COMPLETE BLOOD COUNT 3320508 RDW-SD 45.1 fL 4 Unknown COMPREHENSIVE METABOLIC 41989 AST 13 U/L 2013 Unknown COMPREHENSIVE METABOLIC 05721 ALT 11 IU/L 2013 Unknown COMPREHENSIVE METABOLIC 12597 BUN 23 MG/DL 2013 Unknown COMPREHENSIVE METABOLIC 36258 ALBUMIN 4.4 GM/DL 2013 Unknown COMPREHENSIVE METABOLIC 10702 CHLORIDE 99 MMOL/L 2013 Unknown COMPREHENSIVE METABOLIC 89128 BILI TOT 0.5 MG/DL 2013 Unknown COMPREHENSIVE METABOLIC 45426 ALK PHOS 56 U/L 2013 Unknown COMPREHENSIVE METABOLIC 19836 SODIUM 138 MMOL/L 08/27 Unknown COMPREHENSIVE METABOLIC 96062 CREATININE 0.95 MG/DL 08/10 Unknown COMPREHENSIVE METABOLIC 21756 CALCIUM 9.8 MG/DL 2013 Unknown COMPREHENSIVE METABOLIC 56016 POTASSIUM 3.5 MMOL/L 08/27 Unknown COMPREHENSIVE METABOLIC 34422 PROT TOT 6.8 GM/DL 2013 Unknown COMPREHENSIVE METABOLIC 61119 Glucose 90 MG/DL 2013 Unknown COMPREHENSIVE METABOLIC 67079 BICARB 34 MMOL/L 2013 Unknown COMPREHENSIVE METABOLIC 74797 ANION GAP 5 MEQ/L 2013 Unknown LIPASE 15433 LIPASE 11 IU/L 07/21/2014 Unknown AMYLASE 76367 AMYLASE 39 IU/L 07/21/2014 Unknown HEMOGLOBIN A1C (GLYCOSYLATED) 6838735 A1C HPLC 98832-7 6.2 % 03/05/2013 Unknown THYROID STIMULATING HORMONE 52417 TSH 6.986 uIU/ML 03/05/2013 Unknown COMPLETE BLOOD COUNT 1846347 WBC 12.7 10e9/L 013 Unknown COMPLETE BLOOD COUNT 3150961 RBC 4.53 10e12/L 2012 Unknown COMPLETE BLOOD COUNT 5150262 HGB 14.7 g/dL 3 Unknown COMPLETE BLOOD COUNT 8131927 HCT DET 43.1 % 3 Unknown COMPLETE BLOOD COUNT 0786420 MCV 95.1 fL 3 Unknown COMPLETE BLOOD COUNT 1347941 MCH 32.5 pg 3 Unknown COMPLETE BLOOD COUNT 7341296 MCHC 34.1 g/dL 3 Unknown COMPLETE BLOOD COUNT 2500248 PLT 346 10e9/L 03/05/20 13 Unknown COMPLETE BLOOD COUNT 7203144 MPV 9.5 fL 3 Unknown COMPLETE BLOOD COUNT 0265780 CADEN % 67.6 % 3 Unknown COMPLETE BLOOD COUNT 0167978 LY % 22.1 % 3 Unknown COMPLETE BLOOD COUNT 0175075 MON % 6.6 % 3 Unknown COMPLETE BLOOD COUNT 1882851 EOS % 3.3 % 3 Unknown COMPLETE BLOOD COUNT 0267207 BASO % 0.4 % 3 Unknown COMPLETE BLOOD COUNT 7051698 RDW 14.0 % 3 Unknown COMPLETE BLOOD COUNT 1955482 ABS CADEN 8.59 10e9/L 013 Unknown COMPLETE BLOOD COUNT 4490321 ABS LYMPH 2.81 10e9/L 013 Unknown COMPLETE BLOOD COUNT 5233734 ABS MONO 0.84 10e9/L 013 Unknown COMPLETE BLOOD COUNT [id number] ABS EOS 0.42 10e9/L 013 Unknown COMPLETE BLOOD COUNT [id number] ABS BASO 0.05 10e9/L 013 Unknown COMPLETE BLOOD COUNT 5516023 RDW-SD 46.0 fL 3 Unknown FREE T4 11941 FREE T4 1.14 NG/DL 03/05/2013 Unknown COMPREHENSIVE METABOLIC 13950 AST 17 U/L 2012 Unknown COMPREHENSIVE METABOLIC 33801 ALT 12 IU/L 2012 Unknown COMPREHENSIVE METABOLIC 55811 BUN 24 MG/DL 2012 Unknown COMPREHENSIVE METABOLIC 32928 ALBUMIN 4.2 GM/DL 2012 Unknown COMPREHENSIVE METABOLIC 35065 CHLORIDE 93 MMOL/L 2012 Unknown COMPREHENSIVE METABOLIC 58976 BILI TOT 0.5 MG/DL 2012 Unknown COMPREHENSIVE METABOLIC 68197 ALK PHOS 75 U/L 2012 Unknown COMPREHENSIVE METABOLIC 55014 SODIUM 141 MMOL/L 03/05 Unknown COMPREHENSIVE METABOLIC 71085 CREATININE 1.36 MG/DL 02/09 Unknown COMPREHENSIVE METABOLIC 91662 CALCIUM 9.2 MG/DL 2012 Unknown COMPREHENSIVE METABOLIC 20906 POTASSIUM 3.1 MMOL/L 03/05 Unknown COMPREHENSIVE METABOLIC 25348 PROT TOT 6.9 GM/DL 2012 Unknown COMPREHENSIVE METABOLIC 08993 Glucose 123 MG/DL 2012 Unknown COMPREHENSIVE METABOLIC 81520 BICARB 36 MMOL/L 2012 Unknown COMPREHENSIVE METABOLIC 63276 ANION GAP 12 MEQ/L 2012 Unknown GFR CALC 8344716 GFR AA 51.0L ML/MIN 03/05/2013 Unknow n GFR CALC 4149685 GFR NON-AA 42.0L ML/MIN 03/05/2013 Unkno wn COMPREHENSIVE METABOLIC 41699 AST 14 U/L 2012 Unknown COMPREHENSIVE METABOLIC 01331 ALT 11 IU/L 2012 Unknown COMPREHENSIVE METABOLIC 51906 BUN 16 MG/DL 2012 Unknown COMPREHENSIVE METABOLIC 58130 ALBUMIN 4.2 GM/DL 2012 Unknown COMPREHENSIVE METABOLIC 56913 CHLORIDE 98 MMOL/L 2012 Unknown COMPREHENSIVE METABOLIC 04182 BILI TOT 0.4 MG/DL 2012 Unknown COMPREHENSIVE METABOLIC 29354 ALK PHOS 77 U/L 2012 Unknown COMPREHENSIVE METABOLIC 17136 SODIUM 139 MMOL/L 09/25 Unknown COMPREHENSIVE METABOLIC 27857 CREATININE 0.86 MG/DL 09/10 Unknown COMPREHENSIVE METABOLIC 18776 CALCIUM 9.5 MG/DL 2012 Unknown COMPREHENSIVE METABOLIC 01406 POTASSIUM 3.8 MMOL/L 09/25 Unknown COMPREHENSIVE METABOLIC 68636 PROT TOT 6.8 GM/DL 2012 Unknown COMPREHENSIVE METABOLIC 88033 Glucose 91 MG/DL 2012 Unknown COMPREHENSIVE METABOLIC 12008 BICARB 32 MMOL/L 2012 Unknown COMPREHENSIVE METABOLIC 04018 ANION GAP 9 MEQ/L 2012 Unknown FREE T4 28685 FREE T4 0.98 NG/DL 09/25/2012 Unknown THYROID STIMULATING HORMONE 24108 TSH 1.736 uIU/ML 09/25/2012 Unknown C-REACTIVE PROTEIN (CRP) QUANT 75515 CRP 2.3 MG/DL 09/25/2012 Unknown COMPLETE BLOOD COUNT [id number] WBC 11.9 10e9/L 013 Unknown COMPLETE BLOOD COUNT 6924858 RBC 4.87 10e12/L 2012 Unknown COMPLETE BLOOD COUNT 6712014 HGB 15.1 g/dL 3 Unknown COMPLETE BLOOD COUNT 0948763 HCT DET 44.8 % 3 Unknown COMPLETE BLOOD COUNT 6512413 MCV 92.0 fL 3 Unknown COMPLETE BLOOD COUNT 6188342 MCH 31.0 pg 3 Unknown COMPLETE BLOOD COUNT 2455237 MCHC 33.7 g/dL 3 Unknown COMPLETE BLOOD COUNT 7699653 PLT 343 10e9/L 09/25/19 13 Unknown COMPLETE BLOOD COUNT 4715025 MPV 9.0 fL 3 Unknown COMPLETE BLOOD COUNT 4765741 CADEN % 68.2 % 3 Unknown COMPLETE BLOOD COUNT 2144263 LY % 22.4 % 3 Unknown COMPLETE BLOOD COUNT 9568336 MON % 6.4 % 3 Unknown COMPLETE BLOOD COUNT [id number] EOS % 2.7 % 3 Unknown COMPLETE BLOOD COUNT [id number] BASO % 0.3 % 3 Unknown COMPLETE BLOOD COUNT [id number] RDW 13.8 % 3 Unknown COMPLETE BLOOD COUNT 6019332 ABS CADEN 8.12 10e9/L 013 Unknown COMPLETE BLOOD COUNT 1678996 ABS LYMPH 2.67 10e9/L 013 Unknown COMPLETE BLOOD COUNT [id number] ABS MONO 0.76 10e9/L 013 Unknown COMPLETE BLOOD COUNT 9304458 ABS EOS 0.32 10e9/L 013 Unknown COMPLETE BLOOD COUNT 4775129 ABS BASO 0.04 10e9/L 013 Unknown COMPLETE BLOOD COUNT [id number] RDW-SD 45.6 fL 3 Unknown GFR CALC 7063716 GFR AA >60 ML/MIN 09/25/2012 Unknown GFR CALC [id number] GFR NON-AA >60 ML/MIN 09/25/2012 Unknown ERYTHROCYTE SEDIMENTATION RATE 16087 ESR 19 MM/HR 05/06/2012 Unknown VITAMIN B 12 FOLIC ACID 23396|26054 VIT B 12 922 PG/ML 04/11 Unknown VITAMIN B 12 FOLIC ACID 15394|02903 FOLIC ACID 13.6 NG/ML Unknown URIC ACID 80412 URIC ACID 7.8 MG/DL 05/06/2012 Unknown COMPLETE BLOOD COUNT 74242 WBC 11.9 10e9/L 012 Unknown COMPLETE BLOOD COUNT 77176 RBC 5.30 10e12/L 2011 Unknown COMPLETE BLOOD COUNT 98017 HGB 16.6 g/dL 2 Unknown COMPLETE BLOOD COUNT 60218 HCT DET 47.2 % 2 Unknown COMPLETE BLOOD COUNT 14749 MCV 89.1 fL 2 Unknown COMPLETE BLOOD COUNT 93237 MCH 31.3 pg 2 Unknown COMPLETE BLOOD COUNT 51289 MCHC 35.2 g/dL 2 Unknown COMPLETE BLOOD COUNT 12426 PLT 362 10e9/L 05/06/20 12 Unknown COMPLETE BLOOD COUNT 19635 MPV 9.4 fL 2 Unknown COMPLETE BLOOD COUNT 94523 CADEN % 68.2 % 2 Unknown COMPLETE BLOOD COUNT 37937 LY % 22.0 % 2 Unknown COMPLETE BLOOD COUNT 41550 MON % 6.9 % 2 Unknown COMPLETE BLOOD COUNT 86180 EOS % 2.6 % 2 Unknown COMPLETE BLOOD COUNT 28902 BASO % 0.3 % 2 Unknown COMPLETE BLOOD COUNT 05674 RDW 12.8 % 2 Unknown COMPLETE BLOOD COUNT 60313 ABS CADEN 8.12 10e9/L 012 Unknown COMPLETE BLOOD COUNT 29316 ABS LYMPH 2.62 10e9/L 012 Unknown COMPLETE BLOOD COUNT 39903 ABS MONO 0.82 10e9/L 012 Unknown COMPLETE BLOOD COUNT 99812 ABS EOS 0.31 10e9/L 012 Unknown COMPLETE BLOOD COUNT 14835 ABS BASO 0.04 10e9/L 012 Unknown COMPLETE BLOOD COUNT 83617 RDW-SD 41.5 fL 2 Unknown GFR CALC [id number] GFR AA >60 ML/MIN 05/06/2012 Unknown GFR CALC [id number] GFR NON-AA 58.0L ML/MIN 05/06/2012 Unkno wn FREE T4 [id number] FREE T4 1.15 NG/DL 05/06/2012 Unknown THYROID STIMULATING HORMONE 86849 TSH 1.568 uIU/ML 05/06/2012 Unknown COMPREHENSIVE METABOLIC 40698 AST 20 U/L 2011 Unknown COMPREHENSIVE METABOLIC 21789 ALT 12 IU/L 2011 Unknown COMPREHENSIVE METABOLIC 39794 BUN 20 MG/DL 2011 Unknown COMPREHENSIVE METABOLIC 76819 ALBUMIN 4.5 GM/DL 2011 Unknown COMPREHENSIVE METABOLIC 86866 CHLORIDE 91 MMOL/L 2011 Unknown COMPREHENSIVE METABOLIC 53387 BILI TOT 0.4 MG/DL 2011 Unknown COMPREHENSIVE METABOLIC 44607 ALK PHOS 73 U/L 2011 Unknown COMPREHENSIVE METABOLIC 37148 SODIUM 139 MMOL/L 05/06 Unknown COMPREHENSIVE METABOLIC 93232 CREATININE 1.02 MG/DL 04/11 Unknown COMPREHENSIVE METABOLIC 79368 CALCIUM 9.7 MG/DL 2011 Unknown COMPREHENSIVE METABOLIC 76244 POTASSIUM 3.1 MMOL/L 05/06 Unknown COMPREHENSIVE METABOLIC 42696 PROT TOT 7.3 GM/DL 2011 Unknown COMPREHENSIVE METABOLIC 71029 Glucose 118 MG/DL 2011 Unknown COMPREHENSIVE METABOLIC 09129 BICARB 33 MMOL/L 2011 Unknown COMPREHENSIVE METABOLIC 42248 ANION GAP 15 MEQ/L 2011 Unknown Procedures Procedure Codes Date ROUTINE VENIPUNCTURE CPT-4: 07991 09/29/2019 URINALYSIS NONAUTO W/O SCOPE CPT-4: 61323 09/29/2019 COMPREHEN METABOLIC PANEL CPT-4: 91627 09/29/2019 LIPID PANEL CPT-4: 98400 09/29/2019 A1C HPLC CPT-4: 50403 09/29/2019 ASSAY OF FREE THYROXINE CPT-4: 70588 09/29/2019 ASSAY THYROID STIM HORMONE CPT-4: 16483 09/29/2019 COMPLETE CBC W/AUTO DIFF WBC CPT-4: 28929 09/29/2019 URINALYSIS NONAUTO W/O SCOPE CPT-4: 15325 09/30/2018 MICROALBUMIN QUANTITATIVE CPT-4: 38796 09/30/2018 CEFTRIAXONE SODIUM INJECTION CPT-4: J0696 06/19/2018 THER/PROPH/DIAG INJ SC/IM CPT-4: 20369 06/19/2018 CEFTRIAXONE SODIUM INJECTION CPT-4: J0696 06/17/2018 THER/PROPH/DIAG INJ SC/IM CPT-4: 40852 06/17/2018 THER/PROPH/DIAG INJ SC/IM CPT-4: 85648 05/16/2018 KETOROLAC TROMETHAMINE INJ CPT-4: J1885 05/16/2018 ONDANSETRON HCL INJECTION CPT-4: J2405 05/16/2018 THER/PROPH/DIAG INJ SC/IM CPT-4: 95914 05/16/2018 ROUTINE VENIPUNCTURE CPT-4: 68552 03/20/2018 COMPREHEN METABOLIC PANEL CPT-4: 43300 03/20/2018 DEXAMETHASONE SODIUM PHOS CPT-4: J1100 02/11/2018 THER/PROPH/DIAG INJ SC/IM CPT-4: 24529 02/11/2018 TRIAMCINOLONE ACET INJ NOS CPT-4: J3301 02/11/2018 CEFTRIAXONE SODIUM INJECTION CPT-4: J0696 02/01/2018 THER/PROPH/DIAG INJ SC/IM CPT-4: 52068 02/01/2018 CEFTRIAXONE SODIUM INJECTION CPT-4: J0696 01/30/2018 THER/PROPH/DIAG INJ SC/IM CPT-4: 87862 01/30/2018 ROUTINE VENIPUNCTURE CPT-4: 69926 12/10/2017 ASSAY OF FREE THYROXINE CPT-4: 42895 12/10/2017 ASSAY THYROID STIM HORMONE CPT-4: 80941 12/10/2017 COMPREHEN METABOLIC PANEL CPT-4: 96386 12/10/2017 COMPLETE CBC W/AUTO DIFF WBC CPT-4: 50403 12/10/2017 LIPID PANEL CPT-4: 92171 12/10/2017 A1C HPLC CPT-4: 17359 12/10/2017 CEFTRIAXONE SODIUM INJECTION CPT-4: J0696 12/10/2017 THER/PROPH/DIAG INJ SC/IM CPT-4: 62544 12/10/2017 CEFTRIAXONE SODIUM INJECTION CPT-4: J0696 12/07/2017 THER/PROPH/DIAG INJ SC/IM CPT-4: 19363 12/07/2017 DEXAMETHASONE SODIUM PHOS CPT-4: J1100 12/07/2017 THER/PROPH/DIAG INJ SC/IM CPT-4: 81769 12/07/2017 CEFTRIAXONE SODIUM INJECTION CPT-4: J0696 10/08/2017 THER/PROPH/DIAG INJ SC/IM CPT-4: 62135 10/08/2017 CEFTRIAXONE SODIUM INJECTION CPT-4: J0696 09/21/2017 THER/PROPH/DIAG INJ SC/IM CPT-4: 87210 09/21/2017 CEFTRIAXONE SODIUM INJECTION CPT-4: J0696 09/20/2017 THER/PROPH/DIAG INJ SC/IM CPT-4: 80646 09/20/2017 REMOVAL OF NAIL PLATE CPT-4: 03217 08/29/2017 THER/PROPH/DIAG INJ SC/IM CPT-4: 27767 08/29/2017 TRIAMCINOLONE ACET INJ NOS CPT-4: J3301 08/29/2017 CEFTRIAXONE SODIUM INJECTION CPT-4: J0696 08/29/2017 THER/PROPH/DIAG INJ SC/IM CPT-4: 78474 08/29/2017 DESTRUCT PREMALG LESION (Cryosurgery) CPT-4: 53665 ROUTINE VENIPUNCTURE CPT-4: 24836 06/27/2017 ASSAY OF FREE THYROXINE CPT-4: 39200 06/27/2017 ASSAY THYROID STIM HORMONE CPT-4: 36740 06/27/2017 COMPREHEN METABOLIC PANEL CPT-4: 77342 06/27/2017 COMPLETE CBC W/AUTO DIFF WBC CPT-4: 84045 06/27/2017 EXC TR-EXT B9+REECE 0.5 CM< CPT-4: 16210 01/24/2017 THER/PROPH/DIAG INJ SC/IM CPT-4: 02796 08/02/2016 DEXAMETHASONE SODIUM PHOS CPT-4: J1100 08/02/2016 DESTRUCT PREMALG LESION (Cryosurgery) CPT-4: 14198 EXC TR-EXT B9+REECE 0.5 CM< CPT-4: 84584 08/01/2016 AEROBIC WOUND CULTURE & STN CPT-4: 56225 07/06/2016 CEFTRIAXONE SODIUM INJECTION CPT-4: J0696 05/25/2016 THER/PROPH/DIAG INJ SC/IM CPT-4: 02172 05/25/2016 THER/PROPH/DIAG INJ SC/IM CPT-4: 76963 04/26/2016 DEXAMETHASONE SODIUM PHOS CPT-4: J1100 04/26/2016 CEFTRIAXONE SODIUM INJECTION CPT-4: J0696 04/26/2016 THER/PROPH/DIAG INJ SC/IM CPT-4: 18517 04/26/2016 THER/PROPH/DIAG INJ SC/IM CPT-4: 57983 02/09/2016 TRIAMCINOLONE ACET INJ NOS CPT-4: J3301 02/09/2016 URINALYSIS NONAUTO W/O SCOPE CPT-4: 18089 01/24/2016 URINE CULTURE/ COLONY COUNT CPT-4: 58057 01/24/2016 THER/PROPH/DIAG INJ SC/IM CPT-4: 27969 12/08/2015 TRIAMCINOLONE ACET INJ NOS CPT-4: J3301 12/08/2015 THER/PROPH/DIAG INJ SC/IM CPT-4: 96074 10/07/2015 TRIAMCINOLONE ACET INJ NOS CPT-4: J3301 10/07/2015 DESTRUCT PREMALG LESION (Cryosurgery) CPT-4: 59594 THER/PROPH/DIAG INJ SC/IM CPT-4: 67764 03/16/2015 METHYLPREDNISOLONE 40 MG INJ CPT-4: J1030 03/16/2015 DESTRUCT PREMALG LESION (Cryosurgery) CPT-4: 39214 THER/PROPH/DIAG INJ SC/IM CPT-4: 34973 09/11/2014 METHYLPREDNISOLONE 40 MG INJ CPT-4: J1030 09/11/2014 TRIAMCINOLONE ACET INJ NOS CPT-4: J3301 09/11/2014 CEFTRIAXONE SODIUM INJECTION CPT-4: J0696 09/11/2014 THER/PROPH/DIAG INJ SC/IM CPT-4: 91704 09/11/2014 ROUTINE VENIPUNCTURE CPT-4: 75931 08/27/2014 COMPREHEN METABOLIC PANEL CPT-4: 29123 08/27/2014 COMPLETE CBC W/AUTO DIFF WBC CPT-4: 54443 08/27/2014 LIPID PANEL CPT-4: 92134 08/27/2014 ROUTINE VENIPUNCTURE CPT-4: 39608 07/21/2014 ASSAY OF AMYLASE CPT-4: 86294 07/21/2014 ASSAY OF LIPASE CPT-4: 59333 07/21/2014 THER/PROPH/DIAG INJ SC/IM CPT-4: 41478 07/15/2014 TRIAMCINOLONE ACET INJ NOS CPT-4: J3301 07/15/2014 ROUTINE VENIPUNCTURE CPT-4: 85444 05/14/2014 ASSAY OF FREE THYROXINE CPT-4: 55305 05/14/2014 ASSAY THYROID STIM HORMONE CPT-4: 04604 05/14/2014 COMPREHEN METABOLIC PANEL CPT-4: 66878 05/14/2014 COMPLETE CBC W/AUTO DIFF WBC CPT-4: 45962 05/14/2014 LIPID PANEL CPT-4: 92834 05/14/2014 CEFTRIAXONE SODIUM INJECTION CPT-4: J0696 04/21/2014 THER/PROPH/DIAG INJ SC/IM CPT-4: 63149 04/21/2014 THER/PROPH/DIAG INJ SC/IM CPT-4: 79852 04/21/2014 TRIAMCINOLONE ACET INJ NOS CPT-4: J3301 04/21/2014 THER/PROPH/DIAG INJ SC/IM CPT-4: 19621 03/04/2014 METHYLPREDNISOLONE 40 MG INJ CPT-4: J1030 03/04/2014 TRIAMCINOLONE ACET INJ NOS CPT-4: J3301 03/04/2014 CEFTRIAXONE SODIUM INJECTION CPT-4: J0696 03/04/2014 THER/PROPH/DIAG INJ SC/IM CPT-4: 43131 03/04/2014 TDAP VACCINE 7 YRS/> IM CPT-4: 53328 02/27/2014 IMMUNIZATION ADMIN CPT-4: 50210 02/27/2014 DESTRUCT PREMALG LESION (Cryosurgery) CPT-4: 98839 DESTRUCT PREMALG LES 2-14 CPT-4: 74531 01/13/2014 THER/PROPH/DIAG INJ SC/IM CPT-4: 62787 10/21/2013 METHYLPREDNISOLONE 40 MG INJ CPT-4: J1030 10/21/2013 TRIAMCINOLONE ACET INJ NOS CPT-4: J3301 10/21/2013 CEFTRIAXONE SODIUM INJECTION CPT-4: J0696 08/27/2013 THER/PROPH/DIAG INJ SC/IM CPT-4: 81288 08/27/2013 THER/PROPH/DIAG INJ SC/IM CPT-4: 46800 08/27/2013 METHYLPREDNISOLONE 40 MG INJ CPT-4: J1030 08/27/2013 TRIAMCINOLONE ACET INJ NOS CPT-4: J3301 08/27/2013 THER/PROPH/DIAG INJ SC/IM CPT-4: 70368 06/23/2013 METHYLPREDNISOLONE 40 MG INJ CPT-4: J1030 06/23/2013 TRIAMCINOLONE ACET INJ NOS CPT-4: J3301 06/23/2013 THER/PROPH/DIAG INJ SC/IM CPT-4: 64495 05/26/2013 METHYLPREDNISOLONE 40 MG INJ CPT-4: J1030 05/26/2013 TRIAMCINOLONE ACET INJ NOS CPT-4: J3301 05/26/2013 ROUTINE VENIPUNCTURE CPT-4: 95824 03/05/2013 ASSAY OF FREE THYROXINE CPT-4: 85027 03/05/2013 ASSAY THYROID STIM HORMONE CPT-4: 87917 03/05/2013 COMPREHEN METABOLIC PANEL CPT-4: 63023 03/05/2013 COMPLETE CBC W/AUTO DIFF WBC CPT-4: 78053 03/05/2013 A1C GLYCOSYLATED HEMOGLOBIN TEST CPT-4: 65918 013 DRAIN/INJECT JOINT/BURSA CPT-4: 58925 12/04/2012 METHYLPREDNISOLONE 40 MG INJ CPT-4: J1030 12/04/2012 TRIAMCINOLONE ACET INJ NOS CPT-4: J3301 12/04/2012 CEFTRIAXONE SODIUM INJECTION CPT-4: J0696 11/21/2012 THER/PROPH/DIAG INJ SC/IM CPT-4: 57526 11/21/2012 THER/PROPH/DIAG INJ SC/IM CPT-4: 04423 10/14/2012 METHYLPREDNISOLONE 40 MG INJ CPT-4: J1030 10/14/2012 TRIAMCINOLONE ACET INJ NOS CPT-4: J3301 10/14/2012 URINALYSIS NONAUTO W/O SCOPE CPT-4: 88154 09/27/2012 ROUTINE VENIPUNCTURE CPT-4: 64616 09/25/2012 ASSAY OF FREE THYROXINE CPT-4: 94447 09/25/2012 ASSAY THYROID STIM HORMONE CPT-4: 38487 09/25/2012 COMPREHEN METABOLIC PANEL CPT-4: 83594 09/25/2012 COMPLETE CBC W/AUTO DIFF WBC CPT-4: 20025 09/25/2012 C-REACTIVE PROTEIN CPT-4: 72062 09/25/2012 THER/PROPH/DIAG INJ SC/IM CPT-4: 64404 08/29/2012 METHYLPREDNISOLONE 40 MG INJ CPT-4: J1030 08/29/2012 TRIAMCINOLONE ACET INJ NOS CPT-4: J3301 08/29/2012 DESTRUCT PREMALG LESION (Cryosurgery) CPT-4: 90207 THER/PROPH/DIAG INJ SC/IM CPT-4: 43941 05/06/2012 METHYLPREDNISOLONE 40 MG INJ CPT-4: J1030 05/06/2012 TRIAMCINOLONE ACET INJ NOS CPT-4: J3301 05/06/2012 VITAMIN B 12 FOLIC ACID CPT-4: 11607|35958 05/06/2012 RBC SED RATE AUTOMATED CPT-4: 89311 05/06/2012 ROUTINE VENIPUNCTURE CPT-4: 02515 05/06/2012 ASSAY OF FREE THYROXINE CPT-4: 46519 05/06/2012 ASSAY THYROID STIM HORMONE CPT-4: 75677 05/06/2012 COMPREHEN METABOLIC PANEL CPT-4: 37130 05/06/2012 COMPLETE CBC W/AUTO DIFF WBC CPT-4: 68687 05/06/2012 ASSAY OF BLOOD/URIC ACID CPT-4: 08367 05/06/2012 THER/PROPH/DIAG INJ SC/IM CPT-4: 37597 03/19/2012 KETOROLAC TROMETHAMINE INJ CPT-4: J1885 03/19/2012 KETOROLAC TROMETHAMINE INJ CPT-4: J1885 01/30/2012 THER/PROPH/DIAG INJ SC/IM CPT-4: 13851 01/30/2012 PROMETHAZINE HCL INJECTION CPT-4: J2550 01/30/2012 THER/PROPH/DIAG INJ SC/IM CPT-4: 96414 01/24/2012 METHYLPREDNISOLONE 40 MG INJ CPT-4: J1030 01/24/2012 TRIAMCINOLONE ACET INJ NOS CPT-4: J3301 01/24/2012 THER/PROPH/DIAG INJ SC/IM CPT-4: 12775 09/13/2011 KETOROLAC TROMETHAMINE INJ CPT-4: J1885 09/13/2011 THER/PROPH/DIAG INJ SC/IM CPT-4: 52545 09/13/2011 PROMETHAZINE HCL INJECTION CPT-4: J2550 09/13/2011 CEFTRIAXONE SODIUM INJECTION CPT-4: J0696 07/20/2011 THER/PROPH/DIAG INJ SC/IM CPT-4: 95785 07/20/2011 THER/PROPH/DIAG INJ SC/IM CPT-4: 82503 07/20/2011 METHYLPREDNISOLONE INJECTION CPT-4: J2930 07/20/2011 URINALYSIS NONAUTO W/O SCOPE CPT-4: 93486 05/09/2011 CEFTRIAXONE SODIUM INJECTION CPT-4: J0696 05/09/2011 THER/PROPH/DIAG INJ SC/IM CPT-4: 51136 05/09/2011 THER/PROPH/DIAG INJ SC/IM CPT-4: 40897 05/09/2011 PROMETHAZINE HCL INJECTION CPT-4: J2550 05/09/2011 HYDRATION IV INFUSION INIT CPT-4: 63984 05/09/2011 DESTRUCT PREMALG LESION (Cryosurgery) CPT-4: 83865 DESTRUCT PREMALG LES 2-14 CPT-4: 44749 07/19/2010 REMOVAL OF SKIN TAGS <W/15 CPT-4: 77410 05/30/2010 THER/PROPH/DIAG INJ SC/IM CPT-4: 28511 04/05/2010 CEFTRIAXONE SODIUM INJECTION CPT-4: J0696 04/05/2010 TRIAMCINOLONE ACET INJ NOS CPT-4: J3301 04/05/2010 METHYLPREDNISOLONE 40 MG INJ CPT-4: J1030 04/05/2010 THER/PROPH/DIAG INJ SC/IM CPT-4: 63424 04/05/2010 TRIAMCINOLONE ACET INJ NOS CPT-4: J3301 03/09/2010 METHYLPREDNISOLONE 40 MG INJ CPT-4: J1030 03/09/2010 THER/PROPH/DIAG INJ SC/IM CPT-4: 80412 03/09/2010 THER/PROPH/DIAG INJ SC/IM CPT-4: 93968 03/09/2010 CEFTRIAXONE SODIUM INJECTION CPT-4: J0696 03/09/2010 [...] 1: 132/80 Code: 8480-6 BMI: 35.8 Code: 62656-7 Heart Rate 1: 88 bpm Height: 5'4" Respiratory Rate: 20 bpm SpO2: 95% Tempera ture: 36.9 (C) / 98.5 (F) Weight: 210 lbs 05/28/2019 Blood Pressure 1: 126/82 Code: 8480-6 BMI: 35.0 Code: 76830-6 Heart Rate 1: 88 bpm Height: 5'4" [...] 1: 128/90 Code: 8480-6 BMI: 37.2 Code: 62661-4 Heart Rate 1: 84 bpm Height: 5'4" Respiratory Rate: 20 bpm SpO2: 95% Tempera ture: 36.6 (C) / 97.8 (F) Weight: 217 lbs 08/27/2018 Blood Pressure 1: 128/88 Code: 8480-6 BMI: 38.3 Code: 65191-1 Heart Rate 1: 84 bpm Height: 5'4" [...] 1: 119/72 Code: 8480-6 BMI: 37.4 Code: 14976-5 Heart Rate 1: 82 bpm Height: 5'4" Respiratory Rate: 12 bpm SpO2: 94% Tempera ture: 35.2 (C) / 95.4 (F) Weight: 218 lbs 12/18/2017 Blood Pressure 1: 128/86 Code: 8480-6 BMI: 37.8 Code: 18686-1 Heart Rate 1: 84 bpm Height: 5'4" [...] 1: 128/82 Code: 8480-6 BMI: 35.5 Code: 63380-7 Heart Rate 1: 84 bpm Height: 5'4" [...] 1: 128/82 Code: 8480-6 BMI: 30.2 Code: 00736-6 Heart Rate 1: 80 bpm Height: 5'4" [...] 1: 128/86 Code: 8480-6 BMI: 32.8 Code: 30232-5 Heart Rate 1: 66 bpm Height: 5'4" Respiratory Rate: 18 bpm Temperature: 36 .3 (C) / 97.3 (F) Weight: 191 lbs 06/23/2013 Blood Pressure 1: 132/94 Code: 8480-6 BMI: 34.0 Code: 52788-9 Heart Rate 1: 84 bpm Height: 5'4" Respiratory Rate: 20 bpm Temperature: 36 .8 (C) / 98.2 (F) Weight: 198 lbs 05/26/2013 Blood Pressure 1: 114/80 Code: 8480-6 BMI: 35.0 Code: 11355-2 Heart Rate 1: 80 bpm Height: 5'4" Respiratory Rate: 20 bpm Temperature: 36 .4 (C) / 97.6 (F) Weight: 204 lbs 04/16/2013 Blood Pressure 1: 114/82 Code: 8480-6 BMI: 36.7 Code: 90719-8 Heart Rate 1: 84 bpm Height: 5'4" Respiratory Rate: 20 bpm Temperature: 36 .7 (C) / 98.0 (F) Weight: 214 lbs 03/05/2013 Blood Pressure 1: 136/90 Code: 8480-6 BMI: 37.1 Code: 46771-0 Heart Rate 1: 84 bpm Height: 5'4" [...] 1: 168/114 Code: 8480-6 BMI: 36.2 Code: 65852-3 Heart Rate 1: 104 bpm Height: 5'4" Respiratory Rate: 20 bpm Temperature: 36 .8 (C) / 98.2 (F) Weight: 211 lbs 11/22/2012 Blood Pressure 1: 128/90 Code: 8480-6 Heart Rate 1: 88 bpm Respiratory Rate: 20 bpm SpO2: 96% Temperature: 36.8 (C) / 98.2 (F) 11/21/2012 Blood Pressure 1: 146/100 Code: 8480-6 BMI: 35.7 Code: 17046-4 Heart Rate 1: 96 bpm Height: 5'4" [...] 1: 138/100 Code: 8480-6 BMI: 35.7 Code: 26174-8 Heart Rate 1: 96 bpm Height: 5'4" Respiratory Rate: 20 bpm Temperature: 36 .8 (C) / 98.2 (F) Weight: 208 lbs 05/06/2012 Blood Pressure 1: 154/102 Code: 8480-6 BMI: 34.7 Code: 29206-3 Heart Rate 1: 116 bpm Height: 5'4" Respiratory Rate: 20 bpm Temperature: 36 .8 (C) / 98.2 (F) Weight: 202 lbs 04/03/2012 Blood Pressure 1: 134/94 Code: 8480-6 BMI: 34.8 Code: 46700-8 Heart Rate 1: 108 bpm Height: 5'4" Respiratory Rate: 20 bpm Temperature: 36 .8 (C) / 98.2 (F) Weight: 203 lbs 03/19/2012 Blood Pressure 1: 148/106 Code: 8480-6 BMI: 35.0 Code: 18584-1 Heart Rate 1: 100 bpm Height: 5'4" Respiratory Rate: 20 bpm Temperature: 36 .6 (C) / 97.9 (F) Weight: 204 lbs 02/22/2012 Blood Pressure 1: 146/94 Code: 8480-6 He art Rate 1: 88 bpm 02/21/2012 Blood Pressure 1: 172/120 Code: 8480-6 B lood Pressure 2: 152/106 Code: 8480-6 Heart Rate 1: 116 bpm 02/20/2012 Blood Pressure 1: 160/100 Code: 8480-6 BMI: 32.0 Code: 97311-3 Heart Rate 1: 84 bpm Height: 5'7" Temperature: 36.5 (C) / 97.7 (F) Weight: 204 lbs 01/30/2012 Blood Pressure 1: 152/110 Code: 8480-6 BMI: 32.0 Code: 86193-1 Heart Rate 1: 116 bpm Height: 5'7" Respiratory Rate: 20 bpm Temperature: 37 .0 (C) / 98.6 (F) Weight: 204 lbs 01/24/2012 Blood Pressure 1: 146/100 Code: 8480-6 BMI: 32.0 Code: 08400-7 Heart Rate 1: 100 bpm Height: 5'7" Respiratory Rate: 20 bpm Temperature: 36 .7 (C) / 98.0 (F) Weight: 204 lbs 01/10/2012 Blood Pressure 1: 156/94 Code: 8480-6 BMI: 32.6 Code: 05166-3 Heart Rate 1: 72 bpm Height: 5'7" Respiratory Rate: 20 bpm Temperature: 36 .8 (C) / 98.2 (F) Weight: 208 lbs 12/11/2011 Blood Pressure 1: 146/100 Code: 8480-6 Heart Rat e 1: 116 bpm Height: 5'7" Respiratory Rate: 20 bpm Temperature: 36.9 (C) / 98.4 (F) We ight: 11/09/2011 Blood Pressure 1: 148/96 Code: 8480-6 BMI: 32.1 Code: 42016-4 Heart Rate 1: 116 bpm Height: 5'7" Respiratory Rate: 20 bpm Temperature: 36 .7 (C) / 98.0 (F) Weight: 205 lbs 09/13/2011 Blood Pressure 1: 126/88 Code: 8480-6 Heart Rate 1: 88 bpm Height: 5'7" Respiratory Rate: 20 bpm Temperature: 36.9 (C) / 98.4 (F) We ight: 08/31/2011 Blood Pressure 1: 118/82 Code: 8480-6 BMI: 32.0 Code: 71376-8 Heart Rate 1: 80 bpm Height: 5'7" Temperature: 36.4 (C) / 97.6 (F) Weight: 204 lbs 07/06/2011 Blood Pressure 1: 128/86 Code: 8480-6 BMI: 30.9 Code: 50444-5 Heart Rate 1: 92 bpm Height: 5'7" Respiratory Rate: 20 bpm Temperature: 36 .9 (C) / 98.4 (F) Weight: 197 lbs 06/06/2011 Blood Pressure 1: 112/74 Code: 8480-6 BMI: 31.0 Code: 48842-3 Heart Rate 1: 72 bpm Height: 5'7" [...] 1: 128/92 Code: 8480-6 BMI: 33.6 Code: 22489-2 Heart Rate 1: 104 bpm Height: 5'4" [...] woman exam (40-65 years) 10/17/2016 Patient ov raj for mamogram---had history of breast biopsy sinus [...] Check-up Encounters Encounter Performer Location Codes Date ([id number]) OFFICE/OUTPATIENT VISIT EST Diagnosis: Essential (primary) hypertension[ICD10: I10] Diagnosis: Type 2 diabetes mellitus with hyperglycemia[ICD10: E11.65] Diagnosis: Allergic rhinitis[ICD10: J30.9] María Elena APPIAH DO [facility] CPT-4: 34470 01/13/2020 ([id number]) OFFICE/OUTPATIENT VISIT EST Diagnosis: Type 2 diabetes mellitus with hyperglycemia[ICD10: E11.65] María Elena APPIAH DO [facility] CPT-4: 67074 11/20/2019 ([id number]) OFFICE/OUTPATIENT VISIT EST Diagnosis: Ingrowing nail[ICD10: L60.0] Diagnosis: Type 2 diabetes mellitus with hyperglycemia[ICD10: E11.65] Kathleen APPIAH DO [facility] CPT-4: 73690 10/07/2019 ([id number]) OFFICE/OUTPATIENT VISIT EST Diagnosis: DM w/o complication type II, uncontrolled[ICD10: E11.65] Diagnosis: Hypertriglyceridemia[ICD10: E78.1] Diagnosis: Essential hypertension[ICD10: I10] María Elena Td [facility] [employer] [facility] CPT-4: 74603 09/30/2019 ([id number]) NURSE/OUTPATIENT VISIT EST Diagnosis: Essential (primary) hypertension[ICD10: I10] Diagnosis: Cervicalgia[ICD10: M54.2] Diagnosis: Hyperglycemia, unspecified[ICD10: R73.9] Diagnosis: Mixed hyperlipidemia[ICD10: E78.2] María Elena [facility] [employer] [facility] CPT-4: 26615 09/29/2019 ([id number]) OFFICE/OUTPATIENT VISIT EST Diagnosis: Essential (primary) hypertension[ICD10: I10] Diagnosis: Fall from bed, sequela[ICD10: W06.XXXS] María Elena Se[employer] Fabiola [facility] [employer] [facility] CPT-4: 69197 05/28/2019 ([id number]) NURSE/OUTPATIENT VISIT EST Diagnosis: Essential (primary) hypertension[ICD10: I10] María Elena Seamusmind[facility]ictorino [facility] CPT-4: 81334 05/19/2019 ([id number]) OFFICE/OUTPATIENT VISIT EST Diagnosis: Essential (primary) hypertension[ICD10: I10] Diagnosis: Type 2 diabetes mellitus with hyperglycemia[ICD10: E11.65] Diagnosis: Intervertebral disc disorders with radiculopathy, 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] Diagnosis: Hormone replacement therapy[ICD10: Z79.890] María Elena APPIAH DO [facility] CPT-4: 31161 01/22/2019 ([id number]) OFFICE/OUTPATIENT VISIT EST Diagnosis: Essential (primary) hypertension[ICD10: I10] Diagnosis: Type 2 diabetes mellitus with hyperglycemia[ICD10: E11.65] María Elena [facility] CPT-4: 96196 09/30/2018 ([id number]) OFFICE/OUTPATIENT VISIT EST Diagnosis: Pain in left elbow[ICD10: M25.522] Diagnosis: Acute stress reaction[ICD10: F43.0] Diagnosis: Primary insomnia[ICD10: F51.01] Diagnosis: Abnormal weight gain[ICD10: R63.5] María Elena Td [facility] CPT-4: 24904 08/27/2018 ([id number]) OFFICE/OUTPATIENT VISIT EST Diagnosis: Acute recurrent sinusitis, unspecified[ICD10: J01.91] Diagnosis: Follicular disorder, unspecified[ICD10: L73.9] Diagnosis: Tinea corporis[ICD10: B35.4] María Elena [facility] CPT-4: 11553 08/09/2018 ([id number]) OFFICE/OUTPATIENT VISIT EST Diagnosis: Tinea corporis[ICD10: B35.4] Diagnosis: Anxiety disorder, unspecified[ICD10: F41.9] Diagnosis: Menopausal and female climacteric states[ICD10: N95.1] María Elena [facility] CPT-4: 68375 07/22/2018 ([id number]) NURSE/OUTPATIENT VISIT EST Diagnosis: Cellulitis of right toe[ICD10: L03.031] María Elena Seamusmindivictorino [facility] CPT-4: 38947 06/19/2018 ([id number]) OFFICE/OUTPATIENT VISIT EST Diagnosis: Cellulitis of right toe[ICD10: L03.031] Kathleen Nadia KYLAH [facility] CPT-4: 70839 06/17/2018 ([id number]) OFFICE/OUTPATIENT VISIT EST Diagnosis: Migraine without aura, intractable, without status migrainosus[ICD10: G43.019] Diagnosis: Zoster without complications[ICD10: B02.9] Kathleen [facility] CPT-4: 64291 05/16/2018 ([id number]) OFFICE/OUTPATIENT VISIT EST Diagnosis: Cellulitis of right lower limb[ICD10: L03.115] Kathleen [facility] CPT-4: 19107 03/20/2018 ([id number]) OFFICE/OUTPATIENT VISIT EST Diagnosis: Cellulitis of right lower limb[ICD10: L03.115] Kathleen [facility] CPT-4: 32993 03/18/2018 ([id number]) OFFICE/OUTPATIENT VISIT EST Diagnosis: Cellulitis of right lower limb[ICD10: L03.115] Kathleen [facility] CPT-4: 69308 03/15/2018 ([id number]) OFFICE/OUTPATIENT VISIT EST Diagnosis: Acute sinusitis, unspecified[ICD10: J01.90] Kathleen [facility] CPT-4: 90971 02/11/2018 ([id number]) NURSE/OUTPATIENT VISIT EST Diagnosis: Otitis media, unspecified, right ear[ICD10: H66.91] María Elena [facility] CPT-4: 94844 02/01/2018 ([id number]) OFFICE/OUTPATIENT VISIT EST Diagnosis: Acute suppurative otitis media without spontaneous rupture of ear drum, left ear[ICD10: H66.002] Diagnosis: Abnormal weight gain[ICD10: R63.5] Diagnosis: Intervertebral disc disorders with radiculopathy, 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] Kathleen [facility] CPT-4: 99 214 01/30/2018 ([id number]) PREV VISIT EST AGE 40-64 Diagnosis: Encounter for general adult medical examination without abnormal findings[ICD10: Z00.00] Diagnosis: Essential (primary) hypertension[ICD10: I10] Diagnosis: Mixed hyperlipidemia[ICD10: E78.2] Diagnosis: Type 2 diabetes mellitus with hyperglycemia[ICD10: E11.65] Diagnosis: 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] María Elena [facility] CPT-4: 29845 12/18/2017 ([id number]) OFFICE/OUTPATIENT VISIT EST Diagnosis: Cellulitis of right toe[ICD10: L03.031] Diagnosis: Mixed hyperlipidemia[ICD10: E78.2] Diagnosis: Essential (primary) hypertension[ICD10: I10] Diagnosis: Hyperglycemia, unspecified[ICD10: R73.9] Diagnosis: Nontoxic goiter, 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] María Elena [facility] CPT-4: 24094 12/10/2017 ([id number]) OFFICE/OUTPATIENT VISIT EST Diagnosis: Cellulitis of right toe[ICD10: L03.031] Diagnosis: Acute sinusitis, unspecified[ICD10: J01.90] Kathleen [facility] CPT-4: 58288 12/07/2017 OFFICE/OUTPATIENT VISIT EST Diagnosis: Acute maxillary sinusitis, unspecified[ICD10: J01.00] Kathleen [facility] CPT-4: 33518 10/08/2017 ([id number]) OFFICE/OUTPATIENT VISIT EST Diagnosis: Cellulitis of left toe[ICD10: L03.032] María Elena [facility] CPT-4: 65981 09/21/2017 ([id number]) OFFICE/OUTPATIENT VISIT EST Diagnosis: Insomnia, unspecified[ICD10: G47.00] Diagnosis: Major depressive disorder, single episode, unspecified[ICD10: F32.9] Diagnosis: Anxiety disorder, unspecified[ICD10: F41.9] Diagnosis: Cellulitis of left toe[ICD10: L03.032] Diagnosis: Snoring[ICD10: R06.83] Kathleen [facility] CPT-4: 33539 09/20/2017 ([id number]) OFFICE/OUTPATIENT VISIT EST Diagnosis: Cellulitis of left toe[ICD10: L03.032] María Elena [facility] [employer] [facility] CPT-4: 82361 07/19/2017 OFFICE/OUTPATIENT VISIT EST Diagnosis: Chronic sinusitis, unspecified[ICD10: J32.9] Diagnosis: Generalized hyperhidrosis[ICD10: R61] Kathleen [facility] [employer] [facility] CPT-4: 86970 06/27/2017 ([id number]) OFFICE/OUTPATIENT VISIT EST Diagnosis: Intervertebral disc disorders with radiculopathy, 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] Diagnosis: Primary insomnia[ICD10: F51.01] Diagnosis: Other fatigue[ICD10: R53.83] María Elena [facility] CPT-4: 31880 04/10/2017 ([id number]) OFFICE/OUTPATIENT VISIT EST Diagnosis: Primary insomnia[ICD10: F51.01] Diagnosis: Localized edema[ICD10: R60.0] Diagnosis: 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] María Elena [facility] [employer] [facility] CPT-4: 96783 12/13/2016 ([id number]) OFFICE/OUTPATIENT VISIT EST Diagnosis: Primary insomnia[ICD10: F51.01] Diagnosis: Cyanosis[ICD10: R23.0] María Elena [employer] [facility] CPT-4: 01025 11/01/2016 ([id number]) PREV VISIT EST AGE 40-64 Diagnosis: Encounter for gynecological examination (general) (routine) without abnormal findings[ICD10: Z01.419] Diagnosis: Encounter for routine child health examination without abnormal findings[ICD10: Z00.129] María Elena [facility] [employer] [facility] CPT-4: [address] 10/17/2016 ([id number]) OFFICE/OUTPATIENT VISIT EST Diagnosis: Other seasonal allergic rhinitis[ICD10: J30.2] María Elena APPIAH DO [facility] CPT-4: 12474 10/10/2016 ([id number]) OFFICE/OUTPATIENT VISIT EST Diagnosis: Pain in left arm[ICD10: M79.602] Diagnosis: Contact with and (suspected) exposure to potentially hazardous body fluids[ICD10: Z77.21] Diagnosis: 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, 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] Diagnosis: Unspecified open wound, right foot, sequela[ICD10: S91.301S] María Elena APPIAH [employer] [facility] CPT-4: 25616 09/19/2016 ([id number]) OFFICE/OUTPATIENT VISIT EST Diagnosis: Chronic sinusitis, unspecified[ICD10: J32.9] Diagnosis: Allergic rhinitis due to pollen[ICD10: J30.1] María Elena APPIAH [employer] [facility] CPT-4: 42977 08/24/2016 ([id number]) OFFICE/OUTPATIENT VISIT EST Diagnosis: Acute bronchitis, unspecified[ICD10: J20.9] María Elena APPIAH [employer] [facility] CPT-4: 10935 08/16/2016 ([id number]) OFFICE/OUTPATIENT VISIT EST Diagnosis: Otitis media, unspecified, right ear[ICD10: H66.91] Diagnosis: Acute bronchitis, unspecified[ICD10: J20.9] María Elena APPIAH [employer] [facility] CPT-4: 43514 08/10/2016 ([id number]) OFFICE/OUTPATIENT VISIT EST Diagnosis: Acute recurrent sinusitis, unspecified[ICD10: J01.91] Diagnosis: Allergic rhinitis due to pollen[ICD10: J30.1] María Elena APPIAH [employer] [facility] CPT-4: 90472 08/02/2016 ([id number]) OFFICE/OUTPATIENT VISIT EST Diagnosis: Pain in unspecified joint[ICD10: M25.50] María Elena APPIAH [employer] [facility] CPT-4: 47048 07/27/2016 OFFICE/OUTPATIENT VISIT EST Diagnosis: 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] Diagnosis: Acute recurrent sinusitis, unspecified[ICD10: J01.91] Diagnosis: Other fatigue[ICD10: R53.83] Diagnosis: Primary insomnia[ICD10: F51.01] Diagnosis: Pain in unspecified joint[ICD10: M25.50] María Elena APPIAH DO [facility] CPT-4: 55415 07/20/2016 ([id number]) OFFICE/OUTPATIENT VISIT EST Diagnosis: Blister (nonthermal), left great toe, initial encounter[ICD10: S90.422A] Loan APPIAH DO [facility] CPT-4: 64378 ([id number]) OFFICE/OUTPATIENT VISIT EST Diagnosis: Acute recurrent sinusitis, unspecified[ICD10: J01.91] María Elena APPIAH DO [facility] CPT-4: 79471 05/25/2016 ([id number]) OFFICE/OUTPATIENT VISIT EST Diagnosis: Acute sinusitis, unspecified[ICD10: J01.90] María Elena APPIAH DO [facility] CPT-4: 48826 04/26/2016 ([id number]) OFFICE/OUTPATIENT VISIT EST Diagnosis: Flushing[ICD10: R23.2] Diagnosis: Primary insomnia[ICD10: F51.01] María Elena APPIAH DO [facility] CPT-4: 12527 03/02/2016 ([id number]) OFFICE/OUTPATIENT VISIT EST Diagnosis: Other seasonal allergic rhinitis[ICD10: J30.2] Loan APPIAH DO [facility] CPT-4: 16516 02/09/2016 ([id number]) OFFICE/OUTPATIENT VISIT EST Diagnosis: Primary insomnia[ICD10: F51.01] Diagnosis: Urinary tract infection, site not specified[ICD10: N39.0] María Elena APPIAH DO [facility] CPT-4: 96821 01/24/2016 ([id number]) OFFICE/OUTPATIENT VISIT EST Diagnosis: Other specified disorders of Eustachian tube, bilateral[ICD10: H69.83] Diagnosis: Allergic rhinitis, unspecified[ICD10: J30.9] Loan APPIAH DO [facility] CPT-4: 27545 12/23/2015 ([id number]) OFFICE/OUTPATIENT VISIT EST Diagnosis: Acute recurrent sinusitis, unspecified[ICD10: J01.91] Diagnosis: 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] Diagnosis: Allergic rhinitis, unspecified[ICD10: J30.9] María Elena APPIAH DO [facility] CPT-4: 17236 12/08/2015 ([id number]) OFFICE/OUTPATIENT VISIT EST Diagnosis: Allergic rhinitis, unspecified[ICD10: J30.9] Diagnosis: Pain in unspecified joint[ICD10: M25.50] María Elena APPIAH DO [facility] CPT-4: 69249 10/07/2015 ([id number]) OFFICE/OUTPATIENT VISIT EST Diagnosis: Essential (primary) hypertension[ICD10: I10] María Elena APPIAH DO [facility] CPT-4: 96235 10/06/2015 OFFICE/OUTPATIENT VISIT EST Diagnosis: Localized enlarged lymph nodes[ICD10: R59.0] Diagnosis: Local infection of the skin and subcutaneous tissue, unspecified[ICD10: L08.9] June Washingtongurmeetfatimah MARÍA ELENA APPIAH [facility] CPT- 4: 33187 09/14/2015 ([id number]) OFFICE/OUTPATIENT VISIT EST Diagnosis: Essential (primary) hypertension[ICD10: I10] Diagnosis: Actinic keratosis[ICD10: L57.0] María Elena APPIAH DO [facility] CPT-4: 39760 09/07/2015 ([id number]) OFFICE/OUTPATIENT VISIT EST Diagnosis: Essential (primary) hypertension[ICD10: I10] Diagnosis: Acute stress reaction[ICD10: F43.0] María Elena APPIAH [employer] [facility] CPT-4: 49222 08/18/2015 ([id number]) OFFICE/OUTPATIENT VISIT EST Diagnosis: Essential (primary) hypertension[ICD10: I10] María Elena APPIAH DO [facility] CPT-4: 81923 07/07/2015 ([id number]) OFFICE/OUTPATIENT VISIT EST Diagnosis: Essential (primary) hypertension[ICD10: I10] María Elena APPIAH DO [facility] CPT-4: 37725 06/24/2015 ([id number]) OFFICE/OUTPATIENT VISIT EST Diagnosis: Essential (primary) hypertension[ICD10: I10] María Elena APPIAH [facility] CPT-4: 12482 06/21/2015 ([id number]) OFFICE/OUTPATIENT VISIT EST Diagnosis: Essential (primary) hypertension[ICD10: I10] Diagnosis: Mixed hyperlipidemia[ICD10: E78.2] Diagnosis: Acute stress reaction[ICD10: F43.0] Diagnosis: Primary insomnia[ICD10: F51.01] María Elena APPIAH [facility] CPT-4: 86247 06/16/2015 ([id number]) OFFICE/OUTPATIENT VISIT EST Diagnosis: INSOMNIA NOS[ICD9: 780.52] Diagnosis: HYPERTENSION[ICD9: 401.9] Diagnosis: Stress reaction[ICD9: 308.9] María Elena APPIAH [facility] CPT-4: 33755 06/02/2015 ([id number]) OFFICE/OUTPATIENT VISIT EST Diagnosis: HYPERTENSION[ICD9: 401.9] Diagnosis: Stress reaction[ICD9: 308.9] María Elena APPIAH [facility] CPT-4: 07532 05/20/2015 ([id number]) OFFICE/OUTPATIENT VISIT EST Diagnosis: Skin lesion[ICD9: 709.9] 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] María Elena APPIAH [facility] CPT-4: 12761 05/10/2015 ([id number]) OFFICE/OUTPATIENT VISIT EST Diagnosis: SINUSITIS, ACUTE[ICD9: 461.9] Diagnosis: ALLERGIC RHINITIS[ICD9: 477.9] Diagnosis: DERMATITIS NOS[ICD9: 692.9] María Elena REHMAN [facility] CPT-4: 61335 03/16/2015 OFFICE/OUTPATIENT VISIT EST Diagnosis: Otitis media[ICD9: 382.9] Diagnosis: SINUSITIS, ACUTE[ICD9: 461.9] June Flores MARÍA ELENA APPIAH [employer] [facility] CPT-4: 60550 09/11/2014 ([id number]) OFFICE/OUTPATIENT VISIT EST Diagnosis: HYPERLIPIDEMIA NEC/NOS[ICD9: 272.4] María Elena APPIAH DO [facility] CPT-4: 73680 08/31/2014 ([id number]) OFFICE/OUTPATIENT VISIT EST Diagnosis: - I - HYPERTENSION[ICD9: 401.9] Diagnosis: HYPERLIPIDEMIA NEC/NOS[ICD9: 272.4] María Elena APPIAH DO [facility] CPT-4: 11222 08/27/2014 ([id number]) OFFICE/OUTPATIENT VISIT EST Diagnosis: ABDOMINAL PAIN[ICD9: 789.00] Diagnosis: DYSPEPSIA[ICD9: 536.8] Diagnosis: Thoracic back pain[ICD9: 724.1] María Elena APPIAH DO [facility] CPT-4: 05973 07/21/2014 ([id number]) OFFICE/OUTPATIENT VISIT EST Diagnosis: ALLERGIC RHINITIS[ICD9: 477.9] María Elena APPIAH DO [facility] CPT-4: 47886 07/15/2014 ([id number]) OFFICE/OUTPATIENT VISIT EST Diagnosis: EDEMA[ICD9: 782.3] Diagnosis: Chronic insomnia[ICD9: 780.52] María Elena APPIAH DO [facility] CPT-4: 83411 05/18/2014 ([id number]) OFFICE/OUTPATIENT VISIT EST Diagnosis: Thyromegaly[ICD9: 240.9] Diagnosis: - I - HYPERTENSION[ICD9: 401.9] Diagnosis: ROUTINE MEDICAL EXAM[ICD9: V70.0] Diagnosis: EDEMA[ICD9: 782.3] María Elena APPIAH DO [facility] CPT-4: 13096 05/14/2014 OFFICE/OUTPATIENT VISIT EST Diagnosis: BRONCHITIS, ACUTE[ICD9: 466.0] Diagnosis: SINUSITIS, ACUTE[ICD9: 461.9] María Elena APIPAH DO [facility] CPT-4: 12145 04/21/2014 OFFICE/OUTPATIENT VISIT EST Diagnosis: SINUSITIS, ACUTE[ICD9: 461.9] June Flores MARÍA ELENA APPIAH DO [facility] CPT-4: 27290 03/04/2014 ([id number]) OFFICE/OUTPATIENT VISIT EST Diagnosis: VACCINE FOR TDAP[ICD10: Z23] María Elena APPIAH [facility] CPT-4: 53448 02/27/2014 ([id number]) OFFICE/OUTPATIENT VISIT EST Diagnosis: Seborrheic keratoses, inflamed[ICD9: 702.11] Diagnosis: ACTINIC KERATOSIS[ICD9: 702.0] Diagnosis: INSOMNIA NOS[ICD9: 780.52] María Elena PANDYA [facility] CPT-4: 79247 01/13/2014 OFFICE/OUTPATIENT VISIT EST 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] Diagnosis: ALLERGIC RHINITIS[ICD9: 477.9] Diagnosis: Serous otitis media[ICD9: 381.4] María Elena APPIAH [facility] CPT-4: 46523 12/24/2013 ([id number]) OFFICE/OUTPATIENT VISIT EST Diagnosis: SINUSITIS, ACUTE[ICD9: 461.9] Diagnosis: ALLERGIC RHINITIS[ICD9: 477.9] 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] María Elena APPIAH [facility] CPT-4: 19948 11/12/2013 ([id number]) OFFICE/OUTPATIENT VISIT EST Diagnosis: ALLERGIC RHINITIS[ICD9: 477.9] Diagnosis: SINUSITIS, ACUTE[ICD9: 461.9] María Elena APPIAH [facility] CPT-4: 99840 10/21/2013 ([id number]) OFFICE/OUTPATIENT VISIT EST Diagnosis: ASYMPTOMATIC VARICOSE VEINS[ICD9: 454.9] Diagnosis: INSOMNIA NOS[ICD9: 780.52] María Elena PANDYA [facility] CPT-4: 14948 09/22/2013 OFFICE/OUTPATIENT VISIT EST Diagnosis: SINUSITIS, ACUTE[ICD9: 461.9] June Flores MARÍA ELENA APPIAH [facility] CPT-4: 56059 08/27/2013 ([id number]) OFFICE/OUTPATIENT VISIT EST Diagnosis: CEPHALGIA[ICD9: 784.0] Diagnosis: CEPHALGIA, TENSION[ICD9: 307.81] 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] María Elena APPIAH DO [facility] CPT-4: 12408 08/04/2013 ([id number]) OFFICE/OUTPATIENT VISIT EST Diagnosis: Cervicalgia[ICD9: 723.1] Diagnosis: SPASM OF MUSCLE[ICD9: 728.85] Diagnosis: CEPHALGIA, TENSION[ICD9: 307.81] María Elena APPIAH DO [facility] CPT-4: 72994 07/23/2013 ([id number]) OFFICE/OUTPATIENT VISIT EST 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] Diagnosis: ALLERGIC RHINITIS[ICD9: 477.9] María Elena APPIAH DO [facility] CPT-4: 84419 06/23/2013 ([id number]) OFFICE/OUTPATIENT VISIT EST Diagnosis: ALLERGIC RHINITIS[ICD9: 477.9] Diagnosis: ACUTE SEROUS OTITIS MEDIA[ICD9: 381.01] 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] María Elena APPIAH [facility] CPT-4: 33839 05/26/2013 ([id number]) OFFICE/OUTPATIENT VISIT EST Diagnosis: HYPERTENSION[ICD9: 401.9] Diagnosis: EDEMA[ICD9: 782.3] Diagnosis: Serous otitis media[ICD9: 381.4] María Elena APPIAH DO [facility] CPT-4: 33880 04/16/2013 ([id number]) OFFICE/OUTPATIENT VISIT EST Diagnosis: SINUSITIS, ACUTE[ICD9: 461.9] Diagnosis: ALLERGIC RHINITIS[ICD9: 477.9] Diagnosis: EDEMA[ICD9: 782.3] Diagnosis: Thyromegaly[ICD9: 240.9] Diagnosis: MALAISE AND FATIGUE[ICD9: 780.79] María Elena APPIAH [facility] CPT-4: 37051 03/05/2013 ([id number]) OFFICE/OUTPATIENT VISIT EST Diagnosis: PAIN, LOWER BACK[ICD9: 724.2] Diagnosis: SPASM OF MUSCLE[ICD9: 728.85] María Elena JUARES AlanJj TD GARIBAY [facility] CPT-4: 68611 12/23/2012 OFFICE/OUTPATIENT VISIT EST Diagnosis: Low back pain[ICD9: 724.2] Lashawn Hicks KRISTYN MUMTAZ [facility] CPT-4: 87928 12/16/2012 ([id number]) OFFICE/OUTPATIENT VISIT EST Diagnosis: PAIN, LOWER BACK[ICD9: 724.2] Diagnosis: SCIATICA[ICD9: 724.3] Diagnosis: Lumbar herniated disc[ICD9: 722.10] María Elena COLON AlanJj TD [facility] CPT-4: 43326 12/09/2012 ([id number]) OFFICE/OUTPATIENT VISIT EST Diagnosis: PAIN, LOWER BACK[ICD9: 724.2] Diagnosis: SCIATICA[ICD9: 724.3] Diagnosis: LUMBAR DISC DISPLACEMENT[ICD9: 722.10] María Elena MARIN AlanJj TD [facility] CPT-4: 15854 12/04/2012 OFFICE/OUTPATIENT VISIT EST Diagnosis: Pneumonia[ICD9: 486] Mary JUARES AlanJj TD [facility] CPT-4: 23213 11/22/2012 ([id number]) OFFICE/OUTPATIENT VISIT EST Diagnosis: PNEUMONIA, ORGANISM[ICD9: 486] Diagnosis: Exacerbation of RAD (reactive airway disease)[ICD9: 493.92] María Elena JUARES AlanJj TD [facility] CPT-4: 40060 11/21/2012 OFFICE/OUTPATIENT VISIT EST Diagnosis: HYPERTENSION[ICD9: 401.9] Diagnosis: Cephalgia[ICD9: 784.0] Lashawn Hicks SEAMUSMINDIVICTORINO [facility] CPT-4: 53399 10/29/2012 ([id number]) OFFICE/OUTPATIENT VISIT EST Diagnosis: MALAISE AND FATIGUE[ICD9: 780.79] Diagnosis: ARTHRALGIA-MULTIPLE SITES[ICD9: 719.49] María Elena Hicks TD [facility] CPT-4: 68281 10/14/2012 ([id number]) OFFICE/OUTPATIENT VISIT EST Diagnosis: URINARY FREQUENCY[ICD9: 788.41] María Elena [facility]: 42303 09/27/2012 ([id number]) OFFICE/OUTPATIENT VISIT EST Diagnosis: MALAISE AND FATIGUE[ICD9: 780.79] Diagnosis: ARTHRALGIA-MULTIPLE SITES[ICD9: 719.49] María Elena APPIAH [facility] CPT-4: 55721 09/25/2012 ([id number]) OFFICE/OUTPATIENT VISIT EST Diagnosis: SINUSITIS, ACUTE[ICD9: 461.9] 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] [facility]: 47033 08/29/2012 OFFICE/OUTPATIENT VISIT EST Diagnosis: ACTINIC KERATOSIS[ICD9: 702.0] Diagnosis: Inflamed seborrheic keratosis[ICD9: 702.11] Diagnosis: Skin cancer of face[ICD9: 173.31] Diagnosis: HYPERTENSION[ICD9: 401.9] María Elena WAY [facility] CPT-4: 58508 08/12/2012 ([id number]) OFFICE/OUTPATIENT VISIT EST Diagnosis: ARTHRALGIA-MULTIPLE SITES[ICD9: 719.49] Diagnosis: GOUT[ICD9: 274.9] Diagnosis: HYPERTENSION[ICD9: 401.9] Diagnosis: Tachycardia[ICD9: 785.0] María Elena HU [facility] CPT-4: 92034 05/06/2012 ([id number]) OFFICE/OUTPATIENT VISIT EST Diagnosis: INSOMNIA NOS[ICD9: 780.52] María Elena SIMONS [facility] CPT-4: 85383 04/03/2012 ([id number]) OFFICE/OUTPATIENT VISIT EST Diagnosis: INSOMNIA NOS[ICD9: 780.52] Diagnosis: HYPERTENSION[ICD9: 401.9] Diagnosis: MIGRAINE NOS/NOT INTRCBL[ICD9: 346.90] [facility] 39707 03/19/2012 ([id number]) OFFICE/OUTPATIENT VISIT EST Diagnosis: CELLULITIS[ICD9: 682.9] Diagnosis: Ankle pain[ICD9: 719.47] Diagnosis: HYPERTENSION[ICD9: 401.9] María Elena Waymindivictorino MARÍA ELENA AlanJj SE[facility] CPT-4: 14704 02/20/2012 ([id number]) OFFICE/OUTPATIENT VISIT EST Diagnosis: MIGRAINE NOS/NOT INTRCBL[ICD9: 346.90] Diagnosis: Vomiting[ICD9: 787.03] María Elena Seamusabbey JUARES AlanJj CIRO Bazzi [facility] CPT-4: 60567 01/30/2012 ([id number]) OFFICE/OUTPATIENT VISIT EST Diagnosis: EDEMA[ICD9: 782.3] Diagnosis: HYPERTENSION[ICD9: 401.9] Diagnosis: ALLERGIC RHINITIS[ICD9: 477.9] Diagnosis: ARTHRALGIA-MULTIPLE SITES[ICD9: 719.49] María Elena Seamusabbey MONTERO APARNAALCIDES AlanJj [facility]: 89896 01/24/2012 ([id number]) OFFICE/OUTPATIENT VISIT EST Diagnosis: SPASM OF MUSCLE[ICD9: 728.85] Diagnosis: Thoracic back pain[ICD9: 724.1] Diagnosis: Cervical pain[ICD9: 723.1] María Elena Seamusabbey JUARES AlanJj [facility] CPT-4: 89896 01/10/2012 OFFICE/OUTPATIENT VISIT EST Diagnosis: PAIN, LOWER BACK[ICD9: 724.2] Diagnosis: LUMBAR DISC DISPLACEMENT[ICD9: 722.10] María Elena MARIN AlanJj [facility] CPT-4: 12649 12/11/2011 OFFICE/OUTPATIENT VISIT EST Diagnosis: MIGRAINE NOS/NOT INTRCBL[ICD9: 346.90] Diagnosis: SINUSITIS, ACUTE[ICD9: 461.9] María Elena JUARES AlanJj [facility] CPT-[facility]: 08716 11/09/2011 OFFICE/OUTPATIENT VISIT EST Diagnosis: MIGRAINE NOS/NOT INTRCBL[ICD9: 346.90] Diagnosis: LYMPHADENOPATHY[ICD9: 785.6] María Elena Seamusabbey JUARES AlanJj [facility] CPT-4: 77136 09/13/2011 OFFICE/OUTPATIENT VISIT EST Diagnosis: MALAISE AND FATIGUE[ICD9: 780.79] Diagnosis: ARTHRALGIA-MULTIPLE SITES[ICD9: 719.49] María Elena APPIAH DO [facility] CPT-4: 76583 08/31/2011 OFFICE/OUTPATIENT VISIT EST Diagnosis: SINUSITIS, ACUTE[ICD9: 461.9] María Elena APPIAH DO [facility] CPT-4: 82390 07/20/2011 OFFICE/OUTPATIENT VISIT EST Diagnosis: HYPERTENSION[ICD9: 401.9] Diagnosis: PAIN, LOWER BACK[ICD9: 724.2] Diagnosis: SPASM OF MUSCLE[ICD9: 728.85] María Elena APIPAH DO [facility] CPT-4: 18203 07/06/2011 OFFICE/OUTPATIENT VISIT EST Diagnosis: MIGRAINE NOS/NOT INTRCBL[ICD9: 346.90] Diagnosis: HYPERTENSION[ICD9: 401.9] María Elena SEYMOUR DO [facility] CPT-4: 79679 05/22/2011 OFFICE/OUTPATIENT VISIT EST Diagnosis: SINUSITIS, ACUTE[ICD9: 461.9] Diagnosis: MIGRAINE NOS/NOT INTRCBL[ICD9: 346.90] Diagnosis: Dehydration[ICD9: 276.51] Diagnosis: Vomiting[ICD9: 787.03] María Elena Td Bazzi DO [facility] CPT-4: 62414 05/09/2011 ([id number]) OFFICE/OUTPATIENT VISIT EST María Elena MARIN SJj WAYNDER DO [facility] CPT-4: 80687 02/14/2011 ([id number]) OFFICE/OUTPATIENT VISIT EST María Elena Td ISAAC UJARED S. ORENDER DO [facility] CPT-4: 73585 02/03/2011 ([id number]) OFFICE/OUTPATIENT VISIT EST María Elena Td ISAAC UJARED SJj WAYNDER DO [facility] CPT-4: 40376 01/31/2011 ([id number]) OFFICE/OUTPATIENT VISIT EST María Elena Seamusmindivictorino MARLIN UJARED SJj ORENDER DO [facility] CPT-4: 67761 01/25/2011 ([id number]) OFFICE/OUTPATIENT VISIT EST María Elena Ortavictorino MARLIN TANIA SJj WAYNDER DO [facility] CPT-4: 76353 01/18/2011 ([id number]) OFFICE/OUTPATIENT VISIT EST María Elena [facility] CPT-4: 20167 11/29/2010 ([id number]) OFFICE/OUTPATIENT VISIT, EST María Elena REED [facility] CPT-4: 08885 10/10/2010 ([id number]) OFFICE/OUTPATIENT VISIT, EST María Elena MONTERO QU[facility]INE [facility] CPT-4: 01428 06/07/2010 ([id number]) OFFICE/OUTPATIENT VISIT, EST María Elena BRAUNLINE [facility] CPT-4: 89698 04/27/2010 ([id number]) OFFICE/OUTPATIENT VISIT, EST María Elena [facility]LINE [facility] CPT-4: 19539 04/05/2010 ([id number]) OFFICE/OUTPATIENT VISIT, EST María Elena MONTERO [facility] CPT-4: 02285 03/09/2010 ([id number]) OFFICE/OUTPATIENT VISIT, EST María Elena [facility] CPT-4: 52699 03/03/2010 ([id number]) OFFICE/OUTPATIENT VISIT, EST María Elena [facility] CPT-4: 72409 01/17/2010 ([id number]) PREV VISIT, EST, AGE 40-64 María Elena COLEMAN S. ORENDER DO [employer] CPT-4: 07765 12/27/2009 Plan of Care Planned Activity Notes [...] E11.65 01/13/2020 Appointment: María Elena [facility] [facility] 01/13/2020 Patient Education: lisinopril- [employer] C[employer]on [id number] Completed 01/13/2020 Patient Education: glimepiride- [employer]on [id number] Completed 01/13/2020 Appointment: María Elena Appiah [facility] [facility]ED 11/26/2019 Visit Diagnosis Plan: Type 2 diabetes mellitus with hy perglycemia Discussion: Januvia 100mg daily Glimepride 2mg po BID Accuchecks BID Call in 2 weeks with BS readings Get formulary book ICD-9 : 250.02 ICD-10 : E11.65 11/20/2019 Appointment: María Elena Appiah [facility] [phone] [facility] [place] [facility] 11/20/2019 Patient Education: glimepiride- [employer] C[employer]on [id number] Completed 11/20/2019 Patient Education: Januvia- [employer] C[employer]on [id number] Completed 11/20/2019 Visit Diagnosis Plan: Ingrowing nail [...] ICD-10 : E11.65 10/07/2019 Appointment: Kathleen Zuniga [address] [place], [place] [id number] OFFICE SURGERY 10/07/2019 Visit Diagnosis Plan: Hypertriglyceridemia [...] E11.65 09/30/2019 Appointment: María Elena Appiah WPtel: [address] [place], [place] [phone] [place] CHECK UP 09/30/2019 Patient Education: Premarin- [employer] Coupon [id number] [email or web address]/resources/[email or web address] Completed 09/30/2019 Appointment: María Elena Appiah WPtel: [address] [place], [place] [phone] [place] LAB 09/29/2019 Appointment: María Elena Appiah WPtel: [address] [place], [place] [phone] [place] Won't have the new insurance till [...] : W06.XXXS 05/28/2019 Appointment: María Elena Appiahtel: [address] [place], [place] [phone] [place] FOLLOW UP 05/28/2019 Appointment: María Elena Appiah WPtel: [address] [place], [place] [phone] [place] BP CHECK 05/19/2019 Visit Diagnosis Plan: [...] : Z79.890 01/22/2019 Appointment: María Elena Appiahtel: [address] [place], [place] [id number] [place] FOLLOW UP 01/22/2019 Patient Education: estradiol- [employer] Coupon [id number] [email or web address] [email or web address]/samplemd/resources/[email or web address] Completed 01/22/2019 Appointment: María Elena Appiahtel: [address] [place], [place] [id number] [place] CANCELED 01/20/2019 Appointment: María Elena Appiahtel: [address] [place], [place] [phone] [place] LM NO SHOW 01/06/2019 Appointment: María Elena Appiah WPtel: [address] [place], [place] [phone] [place] CANCELED 10/17/2018 Appointment: María Elena Appiah WPtel: [address] [place] [address] [place] BP CHECK 10/09/2018 Visit Diagnosis Plan: [...] 09/30/2018 Appointment: María Elena Appiah WPtel: [address] [place] [address] [place] FOLLOW UP 09/30/2018 Visit Diagnosis Plan: [...] 08/27/2018 Appointment: María Elena Appiah WPtel: [address] [place], [place] [phone] ACUTE ILLNESS 08/27/2018 Appointment: María Elena Appiah WPtel: [address] [place] [address] [place] Patient stated she went out to start her car to come here and she has a flat tire. NO SHOW - FORGIVEN 08/19/2018 Visit Plan: Saline nasal flushes prn. Ty lenol/Motrin prn headache. Notify if persists/symptoms worsening. 08/09/2018 Visit Diagnosis Plan: Tinea corporis Discussion: Rossy can ICD-9 : 110.5 ICD-10 : B35.4 08/09/2018 Visit Diagnosis Plan: Follicular disorder, unspecified Discussion: Keflex ICD-9 : 704.8 ICD-10 : L73.9 08/09/2018 Visit NOS Plan: Plan Notes: Saline nasal flu shes prn. Tyle... 08/09/2018 Appointment: María Elena Appiah WPtel: [address] [place] [address] ACUTE ILLNESS 08/09/2018 Appointment: María Elena Appiah WPtel: [address] [place] [address] NO SHOW 08/08/2018 Visit Diagnosis Plan: Anxiety [...] 07/22/2018 Appointment: María Elena Appiah WPtel: [address] [place] [address] ACUTE ILLNESS 07/22/2018 Appointment: María Elena Appiah WPtel: [address] [place] [address] [place] INJECTION 06/19/2018 Patient Education: Patient Medication [...] ICD-10 : L03.031 06/17/2018 Appointment: Kathleen Zuniga [address] [place] [address] ACUTE ILLNESS 06/17/2018 Patient Education: Patient Medication [...] ICD-10 : B02.9 05/16/2018 Appointment: Kathleen Zuniga [address] [place], [place] [address] ACUTE ILLNESS 05/16/2018 Patient Education: Patient Medication [...] : L03.115 03/20/2018 Appointment: Kathleen Zuniga [address] [place], [place] [address] FOLLOW UP 03/20/2018 Patient Education: Patient Medication [...] : L03.115 03/18/2018 Appointment: Kathleen Zuniga [address] FOLLOW UP 03/18/2018 Patient Education: Patient Medication [...] ICD-10 : L03.115 03/15/2018 Appointment: Kathleen Zuniga [address] [place], [place] [id number] ACUTE ILLNESS 03/15/2018 Patient Education: Patient Medication [...] : J01.90 02/11/2018 Appointment: Kathleen Zuniga [address] [place], [place] [id number] ACUTE ILLNESS 02/11/2018 Patient Education: Patient Medication Summary Completed 02/11/2018 Appointment: María Elena Appiah WPtel: [phone] [facility] INJECTION 02/01/2018 Patient Education: Patient Medication Summary [...] ICD-10 : M51.16 01/30/2018 Appointment: Kathleen Zuniga [address] [place] [address] ACUTE ILLNESS 01/30/2018 Patient Education: Patient Medication [...] ICD-10 : E11.65 12/18/2017 Appointment: María Elena Appaih WPtel: [phone] [facility] Annual Well Visit 12/18/2017 Patient Education: Patient Medication Summary Completed 12/18/2017 Care Plan: Referral Order SNOMED-CT : [id number] Pending 12/18/2017 Appointment: María Elena Appiah WPtel: [phone] [facility] [place] INJECTION 12/10/2017 Patient Education: Patient Medication [...] ICD-10 : L03.031 12/07/2017 Appointment: Kathleen Zuniga [address] [place] [address] ACUTE ILLNESS 12/07/2017 Patient Education: Patient Medication [...] ICD-10 : J01.00 10/08/2017 Appointment: Kathleen Zuniga [address] [place] [address] ACUTE ILLNESS 10/08/2017 Patient Education: Patient Medication Summary Completed 10/08/2017 Appointment: María Elena Appiah WPtel: [phone] [facility] [place] INJECTION 09/21/2017 Patient Education: Patient Medication [...] ICD-10 : R06.83 09/20/2017 Appointment: Kathleen Zuniga [address] [place], [place] [phone] ACUTE ILLNESS 09/20/2017 Patient Education: Patient Medication [...] ICD-10 : L60.0 08/29/2017 Appointment: Kathleen Zuniga [address] [place] [address] OFFICE SURGERY 08/29/2017 Patient Education: Patient Medication Summary Completed 08/29/2017 Visit Diagnosis Plan: Actinic keratosis Discussion: Cr yotherapy as above ICD-9 : 702.0 ICD-10 : L57.0 08/01/2017 Appointment: María Elena Appiah WPtel: [address] [place], [place] [phone] OFFICE SURGERY 08/01/2017 Patient Education: Patient Medication Summary Completed 08/01/2017 Appointment: María Elena Appiah WPtel: [address] [place] [address] PATIENT THOUGHT APPOINTMENT WAS TOMORROW 07/26/17 CALLED 15 MINUTES BEFORE APPT TO SAY SHE DIDN'T HAVE ANYONE TO COVER HER BUSINESS AND WOULD NOT MAKE IT NO SHOW 07/25/2017 Visit Diagnosis Plan: Cellulitis of left toe Discussio n: Clindamycin and notify if worsening or persistis ICD-9 : 681.10 ICD-10 : L03.032 07/19/2017 Appointment: María Elena Appiah WPtel: [address] [place], [place] [address] MEDICATION REVIEW 07/19/2017 Patient Education: Patient Medication Summary Completed 07/19/2017 Appointment: María Elena Appiah WPtel: [address] [place], [place] [phone] CANCELED 07/04/2017 Visit Diagnosis Plan: Generalized hyperhidrosis Discus ian: CBC, CMP, TSH, free T4 ordered to assess. will review labs. ICD-9 : 780.8 ICD-10 : R61 06/27/2017 Visit Diagnosis Plan: Chronic sinusitis, unspecified D iscussion: Referral sent to dr. albarado in [place] per patient request. patient has been treated multiple times for sinus infections with no recovery. patient was seen by dr sanchez in the past with no interventions. patient has deviated septum which may be affecting her sinuses. 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, including hip Discussion: Shave removal of above lesio n--sent to pathology ICD-9 : 216.7 ICD-10 : D23.72 01/24/2017 Appointment: María Elena Appiah WPtel: [address] [place], [place] [phone] 01/23 confirmed ~sl OFFICE SURGERY 01/24/2017 Patient Education: Patient Medication Summary Completed 01/24/2017 Appointment: Loan Sánchez [address] [place], [place] [phone] 01/09 rescheduled~sl RESCHEDULED 01/15/2017 Visit Diagnosis Plan: Localized edema Discussion: Recih ge metolazone to lasix with potassium prn ICD-9 : 782.3 ICD-10 : R60.0 12/13/2016 Visit Diagnosis Plan: Primary insomnia Discussion: Dis cussed Edgar but at this time patient wants to hold on trying any new meds and would like to try to decrease meds ICD-9 : 780.52 ICD-10 : F51.01 12/13/2016 Visit Diagnosis Plan: Other melanin hyperpigmentation Discussion: Monitor/Observe Sunscreen ICD-9 : 709.09 ICD-10 : L81.4 12/13/2016 Appointment: María [phone] [facility] [place] 12/12 confirmed ~ MEDICATION REVIEW 12/13/2016 Patient Education: Patient Medication Summary Completed 12/13/2016 Appointment: María [facility] [phone] [facility] [place] rescheduled for 12/13/16 at 11am RESCHEDULED 0 12/06/2016 Appointment: María Elena [facility]el[phone] [facility] [place] CANCELED 11/23/2016 Patient Education: [...] 11/01/2016 Appointment: María Elena App[facility]el[facility] [phone] [facility] [place] 10/31 lm `sl 11/01 lm`sl MEDICATION REVIEW 017 Patient Education: Patient Medication Summary Completed 11/01/2016 Referral: Canelo Overton WPtel: [phone] [id number] [place] Referral Initiated 10/30/2016 Visit Diagnosis Plan: [...] Z01.419 10/17/2016 Appointment: María Elena Appiah WPtel: [address] [place], [place] [phone] 10/16 confirmed ~sl PAP 10/17/2016 Patient Education: Patient Medication Summary Completed 10/17/2016 Care Plan: MAMMOGRAM SCREENING LOINC : 2 6347-5 Pending 10/17/2016 Visit Diagnosis Plan: Other seasonal allergic rhinitis Discussion: Decadron/Garamycin Nasal [place] Mix Too soon for steroid Retry zyrtec 10mg daily ICD-9 : 477.9 ICD-10 : J30.2 10/10/2016 Appointment: María Elena Appiah WPtel: [address] [place], [place] [phone] [place] FOLLOW UP 10/10/2016 Patient Education: Patient Medication Summary Completed 10/10/2016 Appointment: María Elena Appiah WPtel: [address] [place], [place] [phone] 10/02 reschedule `sl RESCHEDULED 10/02/2016 Visit Plan: See surgery for removal of n ew left arm lesion and right foot lesion Lyrica to use next month for left arm paresthesias Continue current meds Discussed sunscreen/sunblock combo 09/19/2016 Appointment: María Elena Appiah WPtel: [address] [place], [place] [phone] [place] 09/18 confirmed ~sl FOLLOW UP 09/19/2016 Patient Education: Patient Medication Summary Completed 09/19/2016 Patient Education: Patient Medication Summary Completed 09/18/2016 Care Plan: MAMMOGRAM BOTH BREASTS LOINC : 39175-9 Pending 09/18/2016 Visit Plan: Discussed that needs [...] sinuses 08/24/2016 Appointment: María Elena Appiah WPtel: [address] [place] [address] ACUTE ILLNESS 08/24/2016 Patient Education: Patient Medication Summary Completed 08/24/2016 Patient Education: Patient Medication Summary Completed 08/23/2016 Care Plan: MAMMOGRAM SCREENING LOINC : 2 6347-5 Pending 08/23/2016 Visit Plan: Finish doxycycline Add Breo 100/25 1 p BID for 2 weeks If not improving within next 2 days will get CXR 08/16/2016 Appointment: María Elena Appiah WPtel: [address] [place] [address] ACUTE ILLNESS 08/16/2016 Patient Education: Patient Medication Summary Completed 08/16/2016 Visit Plan: Supportive care. Rest, Fluid s, Tylenol/Motrin prn fever or bodyaches. Notify if worsening symptoms. Doxycyline and Prednisone 08/10/2016 Appointment: María Elena Appiah WPtel: [address] [place] [address] 08/09 lm`sl....confirmed-sp FOLLOW UP 09/2015 Patient Education: Patient Medication Summary Completed 08/10/2016 Visit Plan: Saline nasal flushes prn. Ty lenol/Motrin prn headache. Notify if persists/symptoms worsening. Dexamethasone 8mg IM today May use coricedan and mucinex 08/02/2016 Appointment: María Elena Appiah WPtel: [address] [place] [address] ACUTE ILLNESS 08/02/2016 Patient Education: Patient Medication Summary Completed 08/02/2016 Visit Plan: Cryotherapy as above and lef t forearm lesion removal as above with 5-0 punch biopsy and sent to path Return in 10 days for suture removal 08/01/2016 Appointment: María Elena Appiah WPtel: [address] [place], [place] [phone] 07/31 confirmed`~sl OFFICE SURGERY 08/01/2016 Patient Education: Patient Medication Summary Completed 08/01/2016 Visit Plan: Stop clindamycin Check CBC, CMP, ESR now/STAT 07/27/2016 Appointment: María Elena Appiah WPtel: [address] [place], [place] [id number] ACUTE ILLNESS 07/27/2016 Patient Education: Patient Medication Summary Completed 07/27/2016 Visit Plan: Update lab and check ABIs to start with Will likely need cardiology evaluation to rule out PVD Clindamycin for 10 days Daily yogurt or probiotic Will return for removal of left arm lesions 07/20/2016 Appointment: María Elena Appiah WPtel: [address] [place], [place] [phone] ACUTE ILLNESS 07/20/2016 Patient Education: Patient Medication Summary Completed 07/20/2016 Patient Education: Patient Medication Summary Completed 07/20/2016 Care Plan: MAMMOGRAM BOTH BREASTS LOINC : 26876-3 Pending 07/20/2016 Care Plan: US EXAM CHEST LOINC : 18132-0 Pending 07/20/2016 Visit Plan: Wound culture collected from left great toe Appearance is somewhat staph like Rx as above Wound cleanser and skin care reviewed May need to add oral antibiotic if sores do not heal or continue to reoccur 07/06/2016 Appointment: Loan Sánchez [address] [place], [place] [phone] ACUTE ILLNESS 07/06/2016 Patient Education: Patient Medication Summary Completed 07/06/2016 Appointment: María Elena Appiah WPtel: [address] [place], [place] [phone] [place] INJECTION 05/25/2016 Patient Education: Patient Medication Summary Completed 05/25/2016 Visit Plan: Saline nasal flushes prn. Ty lenol/Motrin prn headache. Notify if persists/symptoms worsening. Dexamethasone and Rocephin given 04/26/2016 Appointment: María Elena Appiah WPtel: [address] [place] [address] ACUTE ILLNESS 04/26/2016 Patient Education: Patient Medication Summary Completed 04/26/2016 Visit Plan: Check CBC, CMP, TSH, FreeT4, HbA1C, estradiol, lipids in AM 03/02/2016 Appointment: María Elena Appiah WPtel: [address] [place] [address] 03/01 lm~sl ACUTE ILLNESS 03/02/2016 Patient Education: Patient Medication Summary Completed 03/02/2016 Visit Plan: Exam is nearly normal Needs to be taking daily antihistamine Would prefer to use oral steroids instead of shot but patient insist that oral steroids cause horrible headaches for her Will given kenalog IM instead 02/09/2016 Appointment: Loan Sánchez [address] [place] [address] ACUTE ILLNESS 02/09/2016 Patient Education: Patient Medication Summary Completed 02/09/2016 Visit Plan: Culture urine Macrobid DC xa nax Trial of Ativan 1mg q HS 01/24/2016 Appointment: María Elena Appiah WPtel: [address] [place] [address] ACUTE ILLNESS 01/24/2016 Patient Education: Patient Medication Summary Completed 01/24/2016 Visit Plan: No steroid or rocephin injec tion warranted Can have oral prednisone Continue current home regimen Needs to follow up with Dr Sanchez if problems persist 12/23/2015 Appointment: Loan Sánchez [address] [place] [address] ACUTE ILLNESS 12/23/2015 Patient Education: Patient Medication Summary Completed 12/23/2015 Visit Plan: Saline nasal flushes prn. Ty lenol/Motrin prn headache. Notify if persists/symptoms worsening. Kenalog 40mg IM today 12/08/2015 Appointment: María Elena Appiah WPtel: [address] [place] [address] 12/06 confirmed~sl ACUTE ILLNESS 12/08/2015 Patient Education: Patient Medication Summary Completed 12/08/2015 Appointment: María Elena Appiah WPtel: [address] [place], [place] [id number] ACUTE ILLNESS 11/18/2015 Patient Education: Patient Medication Summary Completed 10/11/2015 Appointment: María Elena Appiah WPtel: [address] [place], [place] [phone] [place] INJECTION 10/07/2015 Patient Education: Patient Medication Summary Completed 10/07/2015 Visit Plan: Check renal arterial doppler s and ECHO Change amlodopine to lotrel 5/20mg q HS Will need stress test as well Check CMP, uric acid, ESR 10/06/2015 Appointment: María Elena Appiah WPtel: [address] [place] [address] ACUTE ILLNESS 10/06/2015 Patient Education: Patient Medication Summary Completed 10/06/2015 Patient Education: [facility] - [employer] - Amlodipine Besylate - 18-64 - Dynamic Portal ID Completed 10/06/2015 Appointment: María Elena Appiah WPtel: [address] [place] [address] FOLLOW UP 09/22/2015 Visit Plan: Cephalexin 500 mg PO bid Mery ly topical Mupirocin to lesions on left lateral neck and face Follow-up in one week. Sooner if symptoms worsen 09/14/2015 Appointment: June Flores WPtel: [address] [place], [place] [phone] ACUTE ILLNESS 09/14/2015 Patient Education: Patient Medication Summary Completed 09/14/2015 Visit Plan: Change bystolic to bedtime d osing and amlodopine to morning dosing Cryotherapy as above to AKs 09/07/2015 Appointment: María Elena Appiah WPtel: [address] [place], [place] [phone] 09/06 appointment made and confirmed ~sl FOLLOW UP 09/07/2015 Patient Education: Patient Medication Summary Completed 09/07/2015 Visit Plan: Increase bystolic back to 20 mg daily but will split and take 10mg in AM and 10mg in PM Stress Reducers 08/18/2015 Appointment: María Elena Appiahtel: [address] [place], [place] [phone] 08/17/15 appt confirmed cn ACUTE ILLNESS 08/18 Patient Education: Patient Medication Summary Completed 08/18/2015 Appointment: María Elena Appiah WPtel: [address] [place] [address] BP CHECK 07/07/2015 Patient Education: Patient Medication Summary Completed 07/07/2015 Appointment: María Elena Appiah WPtel: [address] [place] [address] BP CHECK 06/24/2015 Patient Education: Patient Medication Summary Completed 06/24/2015 Appointment: María Elena Appiah WPtel: [address] [place] [address] BP CHECK 06/21/2015 Patient Education: Patient Medication Summary Completed 06/21/2015 Visit Plan: Lab discussed Continue suhail nt meds and lifestyle modification Recheck lab in 6mos 06/16/2015 Appointment: María Elena Appiah WPtel: [address] [place] [address] 06/15 confirmed FOLLOW UP 06/16/2015 Patient Education: Patient Medication Summary Completed 06/16/2015 Patient Education: Patient Medication Summary Completed 06/15/2015 Visit Plan: Increase cymbalta to 60mg q HS Keep clonidine at current dose Recheck 2weeks Change xanax to klonopin 06/02/2015 Appointment: María Elena Appiahtel: [address] [place] [address] 06/02 lm FOLLOW UP 06/02/2015 Patient Education: Patient Medication Summary Completed 06/02/2015 Appointment: María Elena Appiah WPtel: [address] [place] [address] ACUTE ILLNESS 05/24/2015 Visit Plan: Increase clonidine to 0.2mg q HS Add cymbalta 30mg q HS Recheck 2weeks Stress Reducers Check fasting lab Discussed sleep study 05/20/2015 Appointment: María Elena Appiah WPtel: [address] [place] [address] ACUTE ILLNESS 05/20/2015 Patient Education: Patient Medication Summary Completed 05/20/2015 Patient Education: [facility] - [employer] - Cymbalta - 18-64 - Dynamic Portal ID Completed 05/20/2015 Appointment: María Elena Appiah WPtel: [address] [place] [address] BP CHECK 05/19/2015 Patient Education: Patient Medication Summary Completed 05/19/2015 Visit Plan: Topical Bactroban alternatin g with topical betamethasone Recheck 2weeks 05/10/2015 Appointment: María Elena Appiah WPtel: [address] [place] [address] 05/07 vm cn...05/07 appt confirmed OFFICE SURGER Y 05/10/2015 Patient Education: Patient Medication Summary Completed 05/10/2015 Referral: Patrick Chandler WPtel: [address] Referral Initiated 05/04/2015 Visit Plan: Saline nasal flushes prn. Ty lenol/Motrin prn headache. Notify if persists/symptoms worsening. Depomedrol 40mg IM today 03/16/2015 Appointment: María Elena Appiah WPtel: [address] [place] [address] ACUTE ILLNESS 03/16/2015 Patient Education: Patient Medication Summary Completed 03/16/2015 Appointment: María Elena Appiah WPtel: [address] [place] [address] ER Follow UP 03/09/2015 Visit Plan: Cryotherapy to lesions as ab ove 10/27/2014 Appointment: María Elena Appiah WPtel: [address] [place] [address] OFFICE SURGERY 10/27/2014 Patient Education: Patient Medication Summary Completed 10/27/2014 Appointment: June Flores WPtel: [address] [place] [address] ACUTE ILLNESS 09/11/2014 Patient Education: Patient Medication Summary Completed 09/11/2014 Visit Plan: Lab discussed Lipitor 10mg d aily Coenzyme Q-10 400mg daily Vitamin D3 5000u daily Recheck lipids with LFTs in 3mos then fwup 08/31/2014 Appointment: María Elena Appiah WPtel: [address] [place] [address] 08/28 voicemail FOLLOW UP 08/31/2014 Patient Education: Patient Medication Summary Completed 08/31/2014 Appointment: María Elena Appiah WPtel: [address] [place] [address] [place] LAB 08/27/2014 Appointment: María Elena Appiah WPtel: [address] [place] [address] [place] LAB 08/27/2014 Patient Education: Patient Medication Summary Completed 08/27/2014 Appointment: María Elena Appiah WPtel: [address] [place] [address] ACUTE ILLNESS 07/23/2014 Appointment: María Elena Appiah WPtel: [address] [place] [address] ACUTE ILLNESS 07/21/2014 Patient Education: Patient Medication Summary Completed 07/21/2014 Visit Plan: Kenalog 40mg IM today Contin ue narendra and singulair Add Flonase 07/15/2014 Appointment: María Elena Appiah WPtel: [address] [place] [address] ACUTE ILLNESS 07/15/2014 Appointment: María Elena Appiah WPtel: [address] [place], [place] [phone] ACUTE ILLNESS 07/15/2014 Patient Education: Patient Medication Summary Completed 07/15/2014 Visit Plan: Will do metolazone 2.5mg prn with 6 potassium and see if causes as severe cramping Trial of of seroquel XR 50mg q PM with evening meal and let us know how works 05/18/2014 Appointment: María Elena Appiah WPtel: [address] [place], [place] [phone] 05/15 left message FOLLOW UP 05/18/2014 Patient Education: Patient Medication Summary Completed 05/18/2014 Appointment: María Elena Appiah WPtel: [address] [place], [place] [phone] LAB 05/14/2014 Patient Education: Patient Medication Summary Completed 05/14/2014 Appointment: María Elena Appiah WPtel: [address] [place], [place] [phone] [place] INJECTION 04/22/2014 Visit Plan: Tisha and Miranda today a nd finish abx given from urgent care 04/21/2014 Appointment: María Elena Appiah WPtel: [address] [place], [place] [phone] [place] INJECTION 04/21/2014 Patient Education: Patient Medication Summary Completed 04/21/2014 Appointment: June Flores WPtel: [address] [place], [place] [phone] ACUTE ILLNESS 03/04/2014 Patient Education: Patient Medication Summary Completed 03/04/2014 Appointment: María Elena Appiah WPtel: [address] [place], [place] [phone] [place] INJECTION 02/27/2014 Patient Education: Patient Medication Summary Completed 02/27/2014 Visit Plan: Cryotherapy as above to all lesions Patient wants to try no meds for insomnia for a while and see how goes 01/13/2014 Appointment: María Elena Appiah WPtel: [address] [place] [address] OFFICE SURGERY 01/13/2014 Patient Education: Patient Medication Summary Completed 01/13/2014 Visit Plan: Stop Melatonin Stop Soma Tri al of trazadone 75mg q HS See ENT for possible tubes as has had chronic ETD and serous otitis media with numerous steroids 12/24/2013 Appointment: María Elena Appiah WPtel: [address] [place] [address] ACUTE ILLNESS 12/24/2013 Patient Education: Patient Medication Summary Completed 12/24/2013 Visit Plan: Saline nasal flushes prn. Ty lenol/Motrin prn headache. Notify if persists/symptoms worsening. 11/12/2013 Appointment: María Elena Appiah WPtel: [address] [place] [address] ACUTE ILLNESS 11/12/2013 Patient Education: Patient Medication Summary Completed 11/12/2013 Appointment: María Elena Appiah WPtel: [address] [place] [address] ACUTE ILLNESS 10/21/2013 Patient Education: Patient Medication Summary Completed 10/21/2013 Visit Plan: Sleep hygiene and sleep rout ine Melatonin 10mg q HS Support stockings and observe 09/22/2013 Appointment: María Elena Appiah WPtel: [address] [place] [address] ACUTE ILLNESS 09/22/2013 Patient Education: Patient Medication Summary Completed 09/22/2013 Appointment: June Flores WPtel: [address] [place] [address] ACUTE ILLNESS 08/27/2013 Patient Education: Patient Medication Summary Completed 08/27/2013 Visit Plan: Proceed with CT scan of head /neck Proceed with occipital nerve injections Butrans 20mcg patch weekly until can get into see Dr. Mcdonough for injections 08/04/2013 Appointment: María Elena Appiah WPtel: [address] [place] [address] FOLLOW UP 08/04/2013 Patient Education: Patient Medication Summary Completed 08/04/2013 Visit Plan: OMT done Daily neck stretche s, moist heat Increase Celebrex to 200mg BID Add flexeril 07/23/2013 Appointment: María Elena Appiah WPtel: [address] [place] [address] 07/22 voicemail FOLLOW UP 07/23/2013 Patient Education: Patient Medication Summary Completed 07/23/2013 Appointment: María Elena Appiah WPtel: [address] [place] [address] ACUTE ILLNESS 06/23/2013 Patient Education: Patient Medication Summary Completed 06/23/2013 Appointment: María Elena Appiah WPtel: [address] [place] [address] ACUTE ILLNESS 05/26/2013 Patient Education: Patient Medication Summary Completed 05/26/2013 Visit Plan: Decrease clonidine to 0.1mg TID If BP remains stable consider decreasing amlodopine Prednisone for 5 days BP check in 1mo 04/16/2013 Appointment: María Elena Appiah WPtel: [address] [place] [address] 04/14 pt called and confirmed appt FOLLOW UP 04/16/2013 Patient Education: Patient Medication Summary Completed 04/16/2013 Appointment: María Elena Appiah WPtel: [address] [place] [address] ACUTE ILLNESS 03/05/2013 Patient Education: Patient Medication Summary Completed 03/05/2013 Visit Plan: Pt has MARIA ELENA on with Dr. Sharonda Trents patch Refill Hydrocodone early tomorrow 12/23/2012 Appointment: María Elena Appiah WPtel: [address] [place] [address] FOLLOW UP 12/23/2012 Patient Education: Patient Medication Summary Completed 12/23/2012 Appointment: Lashawn Eckert WPtel: [address] [place] [address] ACUTE ILLNESS 12/16/2012 Patient Education: Patient Medication Summary Completed 12/16/2012 Visit Plan: Proceed with updated MRI of LS spine Continue gabapentin and add soma and diclofenac Will likely need to go for another epidural 12/09/2012 Appointment: María Elena Appiah WPtel: [address] [place] [address] ACUTE ILLNESS 12/09/2012 Patient Education: Patient Medication Summary Completed 12/09/2012 Visit Plan: Injection as above Finish me drol dose pack Chiropracter this afternoon 12/04/2012 Appointment: María Elena Appiah WPtel: [address] [place] [address] ACUTE ILLNESS 12/04/2012 Patient Education: Patient Medication Summary Completed 12/04/2012 Appointment: Mary Tillman WPtel: [address] [place] [address] FOLLOW UP 11/22/2012 Patient Education: Patient Medication Summary Completed 11/22/2012 Appointment: María Elena Appiah WPtel: [address] [place] [address] ACUTE ILLNESS 11/21/2012 Patient Education: Patient Medication Summary Completed 11/21/2012 Appointment: María Elena Appiah WPtel: [address] [place] [address] BP CHECK 11/07/2012 Patient Education: Patient Medication Summary Completed 11/07/2012 Visit Plan: reports extra clonidine and extra amlodipine and extra alprazalam. extra Ketolorac and promethazine last night. Bystolic 10 mg QAM and will continue all other blood pressure meds. Pt. encouraged to rest and hydrate. Discussed stroke and MA symptoms. Pt. instructed to seek ER eval if symptoms worsen or headache persists. Pt. agrees to ER eval/EMS transport if symptoms worsen. BP re-check. 10/29/2012 Appointment: Lashawn Eckert WPtel: [address] [place], [place] [phone] ACUTE ILLNESS 10/29/2012 Patient Education: Patient Medication Summary Completed 10/29/2012 Appointment: María Elena Appiah WPtel: [address] [place] [id number] ACUTE ILLNESS 10/14/2012 Patient Education: Patient Medication Summary Completed 10/14/2012 Appointment: María Elena Appiah WPtel: [address] [place], [place] [id number] UA 09/27/2012 Patient Education: Patient Medication Summary Completed 09/27/2012 Appointment: María Elena Appiah WPtel: [address] [place] [address] ACUTE ILLNESS 09/25/2012 Patient Education: Patient Medication Summary Completed 09/25/2012 Appointment: María Elena Appiah WPtel: [address] [place] [address] BP CHECK 09/24/2012 Appointment: María Elena Appiah WPtel: [address] [place] [address] ACUTE ILLNESS 08/29/2012 Patient Education: Patient Medication Summary Completed 08/29/2012 Visit Plan: Cryotherapy as above See Karlos m for right ear lesion--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 ACUTE ILLNESS 05/06/2012 Patient Education: Patient Medication Summary Completed 05/06/2012 Visit Plan: Pt wants to hold on any furt her sleep medications 04/03/2012 Appointment: María Elena Appiah WPtel: [address] [place] [address] FOLLOW UP 04/03/2012 Patient Education: Patient Medication Summary Completed 04/03/2012 Appointment: María Elena Appiah WPtel: [address] [place] [address] FOLLOW UP 03/19/2012 Patient Education: Patient Medication Summary Completed 03/19/2012 Appointment: María Elena Appiah WPtel: [address] [place] [address] BP CHECK 02/22/2012 Patient Education: Patient Medication Summary Completed 02/22/2012 Appointment: María Elena Appiah WPtel: [address] [place] [address] BP CHECK 02/21/2012 Patient Education: Patient Medication Summary Completed 02/21/2012 Visit Plan: Doxycycline and bactroban fo r foot Supportive care on ankles and knees Add norvasc for BP 02/20/2012 Appointment: María Elena Appiah WPtel: [address] [place] [address] ER Follow UP 02/20/2012 Patient Education: Patient Medication Summary Completed 02/20/2012 Appointment: María Elena Appiah WPtel: [address] [place] [address] ACUTE ILLNESS 01/30/2012 Patient Education: Patient Medication Summary Completed 01/30/2012 Appointment: María Elena Appiah WPtel: [address] [place] [address] ACUTE ILLNESS 01/24/2012 Patient Education: Patient Medication Summary Completed 01/24/2012 Visit Plan: Daily back stretches, moist heat, Biofreeze prn OMT done 01/10/2012 Appointment: María Elena Appiah WPtel: [address] [place] [address] ACUTE ILLNESS 01/10/2012 Patient Education: Patient Medication Summary Completed 01/10/2012 Appointment: María Elena Appiahtel: [address] [place] [address] FOLLOW UP 12/11/2011 Patient Education: Patient Medication Summary Completed 12/11/2011 Appointment: María Elena Appiahtel: [address] [place] [address] ACUTE ILLNESS 11/09/2011 Patient Education: Patient Medication Summary Completed 11/09/2011 Appointment: María Elena Appiahtel: [address] [place] [address] ACUTE ILLNESS 09/13/2011 Patient Education: Patient Medication Summary Completed 09/13/2011 Visit Plan: Check CBC, TSH, Free T4, CMP , ESR, Vit D, B12 now Start Prednisone today 08/31/2011 Appointment: María Elena Appiahtel: [address] [place] [address] ACUTE ILLNESS 08/31/2011 Patient Education: Patient Medication Summary Completed 08/31/2011 Appointment: María Elena Appiahtel: [address] [place] [address] [place] INJECTION 07/20/2011 Patient Education: Patient Medication Summary Completed 07/20/2011 Visit Plan: Continue current meds Monite r BP Cont stretches from PT 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 07/06/2011 Appointment: María Elena Appiahtel: [address] [place] [address] FOLLOW UP 07/06/2011 Patient Education: Patient Medication Summary Completed 07/06/2011 Appointment: María Elena Appiahtel: [address] [place] [address] [place] BP CHECK 06/06/2011 Patient Education: Patient Medication Summary Completed 06/06/2011 Visit Plan: Add Bystolic at 2.5mg QAM Ad d Robaxin 750mg 2 po q HS BP check in 2wks 05/22/2011 Appointment: María Elena Appiah WPtel: [address] [place] [address] FOLLOW UP 05/22/2011 Patient Education: Patient Medication Summary Completed 05/22/2011 Appointment: María Elena Appiah WPtel: [address] [place] [address] ER Follow UP 05/09/2011 Patient Education: Patient Medication Summary Completed 05/09/2011 Appointment: María Elena Appiah WPtel: [address] [place] [address] FOLLOW UP 02/22/2011 Visit Plan: Rx written for Hydrocodone 1 0/325mg #240 See Ortho 02/14/2011 Appointment: María Elena Appiah WPtel: [address] [place] [address] OMT 02/14/2011 Patient Education: Patient Medication Summary [...] lab work. 02/03/2011 Appointment: Lashawn Eckert WPtel: [address] [place], [place] [id number] ACUTE ILLNESS 02/03/2011 Patient Education: Patient Medication Summary Completed 02/03/2011 Visit Plan: OMT done Cont daily stretche s 01/31/2011 Appointment: María Elena Appiah WPtel: [address] [place] [address] ACUTE ILLNESS 01/31/2011 Patient Education: Patient Medication Summary Completed 01/31/2011 Visit Plan: Continue pain meds OMT done Proceed with PT No work this summer01/25/2011 Appointment: María Elena Appiah WPtel: [address] [place] [address] ACUTE ILLNESS 01/25/2011 Patient Education: Patient Medication Summary Completed 01/25/2011 Visit Plan: Start PT Long discussion abo ut getting pain meds from only us and can only have max of 4grams of tylenol per day Change to Hydrocodone 10/325mg 1- 2 po TID prn pain--#180 called to Radha 01/18/2011 Appointment: María Elena Appiah WPtel: [address] [place] [address] FOLLOW UP 01/18/2011 Patient Education: Patient Medication Summary Completed 01/18/2011 Visit Plan: Daily back stretches, moist heat, Biofreeze prn 11/29/2010 Appointment: María Elena Appiah WPtel: [address] [place] [address] ER Follow UP 11/29/2010 Patient Education: Patient Medication Summary Completed 11/29/2010 Visit Plan: Saline nasal flushes prn. Ty lenol/Motrin prn headache. Notify if persists/symptoms worsening. Finish augmentin Add Medrol Dose Pack 10/10/2010 Appointment: María Elena Appiah WPtel: [address] [place] [address] ACUTE ILLNESS 10/10/2010 Patient Education: Patient Medication Summary Completed 10/10/2010 Visit Plan: Cryotherapy x3 to multiple l esions on both forearms 07/19/2010 Appointment: María Elena Appiah WPtel: [address] [place] [address] OFFICE SURGERY 07/19/2010 Patient Education: Patient Medication Summary Completed 07/19/2010 Appointment: María Elena Appiahtejaylin: [address] [place] [address] [place] BP CHECK 07/06/2010 Patient Education: Patient Medication Summary Completed 07/06/2010 Appointment: María Elena Appiah WPtel: [address] [place], [place] [id number] [place] BP CHECK 06/30/2010 Patient Education: Patient Medication Summary Completed 06/30/2010 Appointment: María Elena Appiah WPtel: [address] [place] [address] BP CHECK 06/20/2010 Patient Education: Patient Medication Summary Completed 06/20/2010 Visit Plan: Change Diovan to Exforge 160 /5mg QD OMT done to thoracics BP check in 2wks 06/07/2010 Appointment: María Elena Appiah WPtel: [address] [place] [address] FOLLOW UP 06/07/2010 Patient Education: Patient Medication Summary Completed 06/07/2010 Appointment: María Elena Appiah WPtel: [address] [place] [address] BP CHECK 06/03/2010 Patient Education: Patient Medication Summary Completed 06/03/2010 Appointment: María Elena Appiah WPtel: [address] [place] [address] BP CHECK 06/01/2010 Patient Education: Patient Medication Summary Completed 06/01/2010 Visit Plan: Irritated skin tags to left neck x2 excised at base with scissors and base cauterized 05/30/2010 Appointment: María Elena Appiah WPtel: [address] [place] [address] OFFICE SURGERY 05/30/2010 Patient Education: Patient Medication Summary Completed 05/30/2010 Visit Plan: Saline nasal flushes prn. Ty lenol/Motrin prn headache. Notify if persists/symptoms worsening. Restart Nasonex Has allergy testing set for May 25 04/27/2010 Appointment: María Elena Appiah WPtel: [address] [place] [address] ACUTE ILLNESS 04/27/2010 Patient Education: Patient Medication Summary Completed 04/27/2010 Visit Plan: Saline nasal flushes prn. Ty lenol/Motrin prn headache. Notify if persists/symptoms worsening. Omnaris BID plus injections 04/05/2010 Appointment: María Elena Appiah WPtel: [address] [place] [address] ACUTE ILLNESS 04/05/2010 Patient Education: Patient Medication Summary Completed 04/05/2010 Visit Plan: Saline nasal flushes prn. Ty lenol/Motrin prn headache. Notify if persists/symptoms worsening. 03/09/2010 Appointment: María Elena Appiah WPtel: [address] [place] [address] ACUTE ILLNESS 03/09/2010 Patient Education: Patient Medication Summary Completed 03/09/2010 Visit Plan: Cont Clonidine as is Cont Pr emarin Fwup with surgery as scheduled 03/03/2010 Appointment: María Elena Appiahtel: [address] [place] [address] FOLLOW UP 03/03/2010 Patient Education: Patient Medication Summary Completed 03/03/2010 Visit Plan: Check Pelvic US now Chelsey Sal C vs Hysterectomy 01/17/2010 Appointment: María Elena Appiahtel: [address] [place] [address] ACUTE ILLNESS 01/17/2010 Patient Education: Patient Medication Summary Completed 01/17/2010 Visit Plan: Check fasting lab and schedu le Mammogram 2gm Na Diet Trial of Ambien 10mg qhs Fwup pending lab results 12/27/2009 Appointment: María Elena Appiah WPtel: [address] [place] [address] ESTABLISHED PATIENT 12/27/2009 Patient Education: Patient Medication Summary Completed 12/27/2009 Referral: Canelo Overton WPtel: [address] [id number] [place] Referral Initiated Referral: Philipp Flores WPtel: [address] [id number] [place] Referral Appointment Requested Instructions Comment . [...] to rest and hydrate. Discussed stroke and MA symptoms. Pt. instructed to seek ER eval [...]
--- OUTSIDE RECORDS SUMMARY | 2020-03-13 04:39 | XMS REPORT | CCD ---
Author Author Gale Appiah D.O. 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 Name Role Phone María Elena Appiah D.O., PP Unavailable CCM Unavailable Summary Purpose Interface Exchange Insurance Providers Payer name Policy type / Coverage type Covered libertarian ID Effective Begin Date Effective End Date [facility] Commercial Insurance [id number] Unknown Family History Family History data not found Social History Social History Element Codes Description Effective Dates Tobacco history SNOMED CT: [id number] Never smoker 05/22/2011 Allergies, Adverse Reactions, Alerts [...] Start Date Stop Date Status Fill Instructions Januvia 100 mg tablet RxNorm: 764745 TAKE ONE TABLET BY MOUTH DAILY 01/22/2020 No Stop Date Active gabapentin 300 mg capsule RxNorm: 421705 TAKE ONE CAPSU LE BY MOUTH EVERY NIGHT AT BEDTIME 01/22/2020 No Stop Date Active allopurinol 300 mg tablet RxNorm: 346407 TAKE ONE TABLET BY LOPEZ TH DAILY 01/22/2020 No Stop Date Active Klor-Con 8 mEq tablet,extended release RxNorm: 749037 T FARRUKH ONE TABLET BY MOUTH TWICE A DAY 01/22/2020 No Stop Date Active doxepin 25 mg capsule RxNorm: 8733488 TAKE ONE CAPSULE B Y MOUTH EVERY NIGHT AT BEDTIME NEEDED FOR SLEEP 01/22/2020 No Stop Date Active glimepiride 4 mg tablet RxNorm: 315186 1 Tablet(s) Oral two times a day replaces 2mg dose 01/13/2020 04/12/2020 Active lisinopril 40 mg tablet RxNorm: 209217 1 Tablet(s) Oral QD repl aces 20mg dose 01/13/2020 04/12/2020 Active hydrocodone 10 mg-acetaminophen 325 mg tablet RxNorm: 477362 1-2 Tablet(s) Oral three times a day as needed for pain 01/12/2020 No Stop Date Active cyclobenzaprine 10 mg tablet RxNorm: 450464 TAKE ONE TA BLET BY MOUTH THREE TIMES A DAY NEEDED FOR MUSCLE SPASMS 01/05/2020 No Stop Date Active triamterene 75 mg-hydrochlorothiazide 50 mg tablet RxNorm: 3 87491 TAKE ONE TABLET BY MOUTH DAILY 12/29/2019 No Stop Date Active Klor-Con 8 mEq tablet,extended release RxNorm: 224778 T FARRUKH ONE TABLET BY MOUTH TWICE A DAY 12/19/2019 01/21/2020 Inactive allopurinol 300 mg tablet RxNorm: 745737 TAKE ONE TABLET BY LOPEZ TH DAILY 12/19/2019 01/21/2020 Inactive glimepiride 2 mg tablet RxNorm: 672352 TAKE ONE TABLET BY MOUTH TWICE A DAY 12/19/2019 01/12/2020 Inactive hydrocodone 10 mg-acetaminophen 325 mg tablet RxNorm: 630248 1-2 Tablet(s) Oral three times a day as needed for pain 12/10/2019 01/11/2020 Inactive Januvia 100 mg tablet RxNorm: 432443 1 Tablet(s) Oral QD 11/20/2019 0 11/20/2019 Inactive glimepiride 2 mg tablet RxNorm: 840573 1 Tablet(s) Oral two sawyer es a day 11/20/2019 12/18/2019 Inactive cyclobenzaprine 10 mg tablet RxNorm: 999197 TAKE ONE TA BLET BY MOUTH THREE TIMES A DAY NEEDED FOR MUSCLE SPASMS 11/17/2019 01/04/2020 Inactive doxepin 25 mg capsule RxNorm: 0172546 TAKE ONE CAPSULE B Y MOUTH EVERY NIGHT AT BEDTIME NEEDED FOR SLEEP 11/16/2019 01/21/2020 Inactive Klor-Con 8 mEq tablet,extended release RxNorm: 384830 T FARRUKH ONE TABLET BY MOUTH TWICE A DAY 11/16/2019 12/18/2019 Inactive hydrocodone 10 mg-acetaminophen 325 mg tablet RxNorm: 378648 1-2 Tablet(s) Oral three times a day as needed for pain 11/10/2019 12/09/2019 Inactive cyclobenzaprine 10 mg tablet RxNorm: 735686 TAKE ONE TA BLET BY MOUTH THREE TIMES A DAY NEEDED FOR MUSCLE SPASMS 10/23/2019 11/16/2019 Inactive duloxetine 60 mg capsule,delayed release RxNorm: 095872 1 Capsu le(s) Oral QD 10/17/2019 04/13/2020 Active celecoxib 200 mg capsule RxNorm: 072046 1 Capsule(s) Or al two times a day as needed for pain 10/17/2019 01/14/2020 Inactive Singulair 10 mg tablet RxNorm: 715759 1 Tablet(s) Oral QD 10/17/2019 04/14/2020 Active metoprolol tartrate 100 mg tablet RxNorm: 099990 1 Tabl et(s) Oral two times a day 10/17/2019 04/13/2020 Active clonidine HCl 0.1 mg tablet RxNorm: 480394 1 Tablet(s) Oral fou r times a day 10/17/2019 04/13/2020 Active Lipitor 10 mg tablet RxNorm: 562412 1 Tablet(s) Oral QD 10/17/2019 Inactive Steglatro 15 mg tablet RxNorm: 9703993 1 Tablet(s) Oral QD 10/17/19 No Stop Date Active lisinopril 20 mg tablet RxNorm: 326790 1 Tablet(s) Oral QD 10/17/19 20 01/12/2020 Inactive gabapentin 300 mg capsule RxNorm: 179806 1 Capsule(s) O ral every night at bedtime 10/17/2019 01/15/2020 Inactive Klor-Con 8 mEq tablet,extended release RxNorm: 102493 1 Tablet(s) Oral two times a day 10/17/2019 11/15/2019 Inactive Januvia 100 mg tablet RxNorm: 850509 1 Tablet(s) Oral QD 10/17/2019 0 01/12/2020 Inactive Glyxambi 25 mg-5 mg tablet RxNorm: 6293691 1 Tablet(s) Oral QD 01/202010/16/2019 Inactive Patient will bring in copay discount card as well Glyxambi 25 mg-5 mg tablet RxNorm: 2738264 1 Tablet(s) Oral QD 01/202010/14/2019 Inactive Patient will bring in copay discount card as well Keflex 500 mg capsule RxNorm: 697777 1 Capsule(s) Oral two time s a day 10/07/2019 10/14/2019 Inactive Premarin 1.25 mg tablet RxNorm: 936391 1 Tablet(s) Oral QD 09/30/19 20 06/25/2020 Active hydrocodone 10 mg-acetaminophen 325 mg tablet RxNorm: 680079 1-2 Tablet(s) Oral three times a day as needed for pain 09/30/2019 09/30/2019 Inactive baclofen 10 mg tablet RxNorm: 520265 TAKE ONE TABLET BY MOUTH THREE TIMES A DAY NEEDED 09/19/2019 No Stop Date Active gabapentin 300 mg capsule RxNorm: 278397 TAKE ONE CAPSU LE BY MOUTH EVERY NIGHT AT BEDTIME 09/19/2019 10/16/2019 Inactive Klor-Con 8 mEq tablet,extended release RxNorm: 561220 T FARRUKH ONE TABLET BY MOUTH TWICE A DAY 1 Tablet(s) Oral two times a day 09/19/2019 10/16/2019 [place] [facility]ive hydrocodone 10 mg-acetaminophen 325 mg tablet RxNorm: 660591 1-2 Tablet(s) Oral three times a day as needed for pain 09/19/2019 09/29/2019 Inactive duloxetine 60 mg capsule,delayed release RxNorm: 828460 TAKE ONE CAPSULE BY MOUTH DAILY 09/11/2019 10/16/2019 Inactive Lipitor 10 mg tablet RxNorm: 946583 TAKE ONE TABLET BY MOUTH AT BEDTIME 09/11/2019 10/16/2019 Inactive lisinopril 20 mg tablet RxNorm: 965342 TAKE ONE TABLET BY MOUTH DAILY .... THIS REPLACE 10MG TABLETS 09/11/2019 10/16/2019 Inactive triamterene 75 mg-hydrochlorothiazide 50 mg tablet RxNorm: 3 08024 TAKE ONE TABLET BY MOUTH DAILY 09/11/2019 12/28/2019 Inactive allopurinol 300 mg tablet RxNorm: 264108 TAKE ONE TABLET BY LOPEZ TH DAILY 09/11/2019 12/18/2019 Inactive celecoxib 200 mg capsule RxNorm: 053783 TAKE ONE CAPSUL E BY MOUTH TWICE A DAY NEEDED FOR PAIN 09/11/2019 10/16/2019 Inactive clonidine HCl 0.1 mg tablet RxNorm: 129980 TAKE ONE TAB LET BY MOUTH FOUR TIMES A DAY 09/11/2019 10/16/2019 Inactive doxepin 25 mg capsule RxNorm: 3967497 1 Capsule(s) Oral every night at bedtime as needed for sleep 08/21/2019 11/15/2019 Inactive hydrocodone 10 mg-acetaminophen 325 mg tablet RxNorm: 794164 1-2 Tablet(s) PO TID 08/12/2019 09/29/2019 Inactive as needed for pa in - Previous quantity #240, will start dosing for #180 in April 2011 per Doctor Td. Medrol (Dustin) 4 mg tablets in a dose pack RxNorm: 777164 Tablet(s) Oral As Directed 07/21/2019 09/29/2019 Inactive Premarin 1.25 mg tablet RxNorm: 595883 1 Tablet(s) Oral QD 07/02/2009/29/2019 Inactive hydrocodone 10 mg-acetaminophen 325 mg tablet RxNorm: 061699 1-2 Tablet(s) PO TID 07/01/2019 08/11/2019 Inactive as needed for pa in - Previous quantity #240, will start dosing for #180 in April 2011 per Doctor Appiah. gabapentin 300 mg capsule RxNorm: 348964 1 Capsule(s) PO QHS 201809/18/2019 Inactive celecoxib 200 mg capsule RxNorm: 019780 1 Capsule(s) Or al two times a day as needed for pain 06/27/2019 06/27/2019 Inactive doxepin 25 mg capsule RxNorm: 1410233 TAKE ONE CAPSULE B Y MOUTH EVERY NIGHT AT BEDTIME NEEDED FOR SLEEP 06/24/2019 08/20/2019 Inactive Singulair 10 mg tablet RxNorm: 312266 TAKE ONE TABLET BY MOUTH JOSÉ Y 06/24/2019 10/16/2019 Inactive furosemide 40 mg tablet RxNorm: 528981 TAKE ONE TABLET BY MOUTH EVERY MORNING NEEDED FOR EDEMA . TAKE WITH POTASSIUM 06/24/2019 01/12/2020 Inactive lisinopril 20 mg tablet RxNorm: 434655 TAKE ONE TABLET BY MOUTH DAILY .... THIS REPLACE 10MG TABLETS 06/24/2019 09/10/2019 Inactive nystatin-triamcinolone 100,000 unit/g-0.1 % topical cream Rx Norm: 3040462 1 Application Topical two times a day 06/12/2019 06/19/2019 Inactive apply BID for 1 week nystatin-triamcinolone 100,000 unit/g-0.1 % topical cream Rx Norm: 2594114 1 Application Topical two times a day 06/12/2019 06/11/2019 Inactive apply BID for 1 week hydrocodone 10 mg-acetaminophen 325 mg tablet RxNorm: 708208 1-2 Tablet(s) PO QID as needed for pain MUST LAST 30 DAYS 05/28/2019 06/26/2019 Inactiv e (Response to an electronic controlled substance refill request - RxReferenceNumber: [id number]) baclofen 20 mg tablet RxNorm: 270131 1 Tablet(s) PO TID as needed for muscle spasm 05/19/2019 05/27/2019 Inactive gabapentin 300 mg capsule RxNorm: 762708 1 Capsule(s) PO QHS 201805/27/2019 Inactive lisinopril 20 mg tablet RxNorm: 736538 1 Tablet(s) PO Q D TAKE ONE TABLET BY MOUTH DAILY, REPLACES 10 MG DOSE 05/19/2019 06/23/2019 Inactive doxepin 25 mg capsule RxNorm: 0662775 TAKE ONE CAPSULE B Y MOUTH EVERY NIGHT AT BEDTIME NEEDED FOR SLEEP 05/16/2019 06/14/2019 Inactive lisinopril 20 mg tablet RxNorm: 507667 TAKE ONE TABLET BY MOUTH DAILY, REPLACES 10 MG DOSE 05/16/2019 05/18/2019 Inactive Singulair 10 mg tablet RxNorm: 822368 TAKE ONE TABLET BY MOUTH JOSÉ Y 05/16/2019 06/14/2019 Inactive gabapentin 300 mg capsule RxNorm: 153670 1 Capsule(s) PO QHS 201805/04/2019 Inactive estropipate 1.5 mg tablet RxNorm: 551623 1 Tablet(s) PO QD 05/05/2005/27/2019 Inactive estropipate 1.5 mg tablet RxNorm: 779871 1 Tablet(s) PO QD 05/05/2005/04/2019 Inactive gabapentin 300 mg capsule RxNorm: 322117 1 Capsule(s) PO QHS 201805/18/2019 Inactive hydrocodone 10 mg-acetaminophen 325 mg tablet RxNorm: 448625 1-2 Tablet(s) PO QID as needed for pain MUST LAST 30 DAYS 04/25/2019 05/24/2019 Inactiv e (Response to an electronic controlled substance refill request - RxReferenceNumber: [id number]) cyclobenzaprine 10 mg tablet RxNorm: 313384 TAKE ONE TA BLET BY MOUTH THREE TIMES A DAY NEEDED FOR MUSCLE SPASMS 04/24/2019 05/18/2019 Inactive metoprolol tartrate 100 mg tablet RxNorm: 901734 TAKE O NE TABLET BY MOUTH TWICE A DAY 04/24/2019 10/16/2019 Inactive Lyrica 75 mg capsule RxNorm: 264243 1 Capsule(s) PO QHS 03/25/2019 Inactive duloxetine 60 mg capsule,delayed release RxNorm: 475598 TAKE ONE CAPSULE BY MOUTH DAILY 03/21/2019 05/19/2019 Inactive triamterene 75 mg-hydrochlorothiazide 50 mg tablet RxNorm: 3 71456 TAKE ONE TABLET BY MOUTH DAILY 03/21/2019 05/19/2019 Inactive Klor-Con 8 mEq tablet,extended release RxNorm: 355425 T FARRUKH ONE TABLET BY MOUTH TWICE A DAY 03/21/2019 09/18/2019 Inactive Lipitor 10 mg tablet RxNorm: 356749 TAKE ONE TABLET BY MOUTH AT BEDTIME 03/21/2019 09/10/2019 Inactive clonidine HCl 0.1 mg tablet RxNorm: 450960 TAKE ONE TAB LET BY MOUTH FOUR TIMES A DAY 03/21/2019 05/19/2019 Inactive allopurinol 300 mg tablet RxNorm: 096287 TAKE ONE TABLET BY LOPEZ TH DAILY 03/21/2019 05/19/2019 Inactive hydrocodone 10 mg-acetaminophen 325 mg tablet RxNorm: 962458 1-2 Tablet(s) PO QID as needed for pain MUST LAST 30 DAYS 02/28/2019 03/29/2019 Inactiv e (Response to an electronic controlled substance refill request - RxReferenceNumber: [id number]) furosemide 40 mg tablet RxNorm: 775959 TAKE ONE TABLET BY MOUTH EVERY MORNING NEEDED FOR EDEMA . TAKE WITH POTASSIUM 02/21/2019 03/22/2019 Inactive cyclobenzaprine 10 mg tablet RxNorm: 166020 TAKE ONE TA BLET BY MOUTH THREE TIMES A DAY NEEDED FOR MUSCLE SPASMS 02/21/2019 04/21/2019 Inactive lisinopril 20 mg tablet RxNorm: 799977 TAKE ONE TABLET BY MOUTH DAILY, REPLACES 10 MG DOSE 02/21/2019 05/15/2019 Inactive doxepin 25 mg capsule RxNorm: 9234781 TAKE ONE CAPSULE B Y MOUTH EVERY NIGHT AT BEDTIME NEEDED FOR SLEEP 02/21/2019 05/15/2019 Inactive nystatin 100,000 unit/gram topical cream RxNorm: 932697 APPLY TO AFFECTED AREA(S) TWO TIMES A DAY 02/21/2019 03/22/2019 Inactive estradiol 1 mg tablet RxNorm: 643927 2 Tablet(s) PO QD replaces premarin 01/22/2019 05/04/2019 Inactive lisinopril 20 mg tablet RxNorm: 157754 TAKE ONE TABLET BY MOUTH DAILY, REPLACES 10 MG DOSE 01/20/2019 02/18/2019 Inactive cyclobenzaprine 10 mg tablet RxNorm: 799179 TAKE ONE TA BLET BY MOUTH THREE TIMES A DAY NEEDED FOR MUSCLE SPASMS 01/20/2019 02/18/2019 Inactive metoprolol tartrate 100 mg tablet RxNorm: 660552 TAKE O NE TABLET BY MOUTH TWICE A DAY 01/20/2019 02/18/2019 Inactive cyclobenzaprine 10 mg tablet RxNorm: 437295 TAKE ONE TA BLET BY MOUTH THREE TIMES A DAY NEEDED FOR MUSCLE SPASMS 12/19/2018 01/17/2019 Inactive lisinopril 20 mg tablet RxNorm: 500313 TAKE ONE TABLET BY MOUTH DAILY, REPLACES 10 MG DOSE 12/19/2018 01/17/2019 Inactive duloxetine 60 mg capsule,delayed release RxNorm: 119324 TAKE ONE CAPSULE BY MOUTH DAILY 12/19/2018 01/17/2019 Inactive Lipitor 10 mg tablet RxNorm: 752767 TAKE ONE TABLET BY MOUTH AT BEDTIME 12/19/2018 01/17/2019 Inactive cyclobenzaprine 10 mg tablet RxNorm: 166982 1 Tablet(s) PO TID as needed for muscle spasm 11/19/2018 12/18/2018 Inactive Singulair 10 mg tablet RxNorm: 208240 1 Tablet(s) PO QD 11/19/2018 Inactive lisinopril 20 mg tablet RxNorm: 233958 TAKE ONE TABLET BY MOUTH DAILY, REPLACES 10 MG DOSE 11/15/2018 12/18/2018 Inactive hydrocodone 10 mg-acetaminophen 325 mg tablet RxNorm: 153738 1-2 Tablet(s) PO QID as needed for pain MUST LAST 30 DAYS 11/13/2018 12/12/2018 Inactiv e (Response to an electronic controlled substance refill request - RxReferenceNumber: [id number]) nystatin 100,000 unit/gram topical cream RxNorm: 883220 APPLY TO AFFECTED AREA(S) TWO TIMES A DAY 10/23/2018 11/06/2018 Inactive lisinopril 20 mg tablet RxNorm: 887082 1 Tablet(s) PO QD replac es 10mg dose 10/18/2018 11/14/2018 Inactive hydrocodone 10 mg-acetaminophen 325 mg tablet RxNorm: 015518 1-2 Tablet(s) QID as needed for pain MUST LAST 30 DAYS 10/08/2018 11/06/2018 Inactive (Response to an electronic controlled substance refill request - RxReferenceNumber: [id number]) lisinopril 10 mg tablet RxNorm: 981690 1 Tablet(s) PO QD 10/03/2018 0 01/21/2019 Inactive Celebrex 200 mg capsule RxNorm: 116145 TAKE ONE CAPSULE BY MOUT H TWICE A DAY 09/30/2018 05/04/2019 Inactive cyclobenzaprine 10 mg tablet RxNorm: 610903 TAKE ONE TA BLET BY MOUTH THREE TIMES A DAY NEEDED FOR MUSCLE SPASMS 09/30/2018 11/18/2018 Inactive doxepin 25 mg capsule RxNorm: 0432597 TAKE ONE CAPSULE B Y MOUTH EVERY NIGHT AT BEDTIME NEEDED 09/05/2018 10/16/2018 Inactive omeprazole 40 mg capsule,delayed release RxNorm: 727182 TAKE ONE CAPSULE BY MOUTH DAILY 09/05/2018 01/21/2019 Inactive furosemide 40 mg tablet RxNorm: 074559 TAKE ONE TABLET BY MOUTH EVERY MORNING NEEDED FOR EDEMA . TAKE WITH POTASSIUM 09/05/2018 11/03/2018 Inactive phentermine 37.5 mg tablet RxNorm: 470299 1 Tablet(s) PO QAM 201701/21/2019 Inactive doxepin 25 mg capsule RxNorm: 5092392 1 Capsule(s) PO QH S as needed for sleep TAKE ONE CAPSULE BY MOUTH EVERY NIGHT AT BEDTIME NEEDED 08/27/2018 09/04/2018 Inactive Keflex 500 mg capsule RxNorm: 327570 1 Capsule(s) PO TID 08/09/2018 1 10/19/2017 Inactive Diflucan 100 mg tablet RxNorm: 453982 1 Tablet(s) PO QD 08/09/2018 Inactive Premarin 1.25 mg tablet RxNorm: 475644 2 Tablet(s) PO QD 08/09/2018 0 05/04/2019 Inactive Zofran ODT 4 mg disintegrating tablet RxNorm: 653595 1 Tablet(s) PO Q4H as needed for nausea 08/09/2018 01/21/2019 Inactive metoprolol tartrate 100 mg tablet RxNorm: 261886 TAKE O NE TABLET BY MOUTH TWICE A DAY 2018 10/04/2018 Inactive doxepin 25 mg capsule RxNorm: 5344278 TAKE ONE CAPSULE B Y MOUTH EVERY NIGHT AT BEDTIME NEEDED 2018 08/26/2018 Inactive cyclobenzaprine 10 mg tablet RxNorm: 037539 TAKE ONE TA BLET BY MOUTH THREE TIMES A DAY NEEDED FOR MUSCLE SPASMS 2018 09/29/2018 Inactive hydrocodone 10 mg-acetaminophen 325 mg tablet RxNorm: 524825 1-2 Tablet(s) QID as needed for pain MUST LAST 30 DAYS 07/29/2018 08/27/2018 Inactive (Response to an electronic controlled substance refill request - RxReferenceNumber: [id number]) nystatin 100,000 unit/gram topical powder RxNorm: 821918 Applic ation TOP BID 07/22/2018 08/04/2018 Inactive doxepin 25 mg capsule RxNorm: 8373477 1 Capsule(s) PO QHS as needed 07/22/2018 08/05/2018 Inactive triamterene 75 mg-hydrochlorothiazide 50 mg tablet RxNorm: 3 52968 TAKE ONE TABLET BY MOUTH DAILY 07/05/2018 10/02/2018 Inactive duloxetine 60 mg capsule,delayed release RxNorm: 014054 TAKE ONE CAPSULE BY MOUTH DAILY 07/05/2018 09/02/2018 Inactive Klor-Con 8 mEq tablet,extended release RxNorm: 390639 T FARRUKH ONE TABLET BY MOUTH TWICE A DAY 07/05/2018 10/02/2018 Inactive Lipitor 10 mg tablet RxNorm: 664375 TAKE ONE TABLET BY MOUTH AT BEDTIME 07/05/2018 09/02/2018 Inactive allopurinol 300 mg tablet RxNorm: 362580 TAKE ONE TABLET BY LOPEZ TH DAILY 07/05/2018 10/02/2018 Inactive clonidine HCl 0.1 mg tablet RxNorm: 778331 TAKE ONE TAB LET BY MOUTH FOUR TIMES A DAY 07/05/2018 10/02/2018 Inactive hydrocodone 10 mg-acetaminophen 325 mg tablet RxNorm: 900223 1-2 Tablet(s) QID as needed for pain MUST LAST 30 DAYS 06/28/2018 07/27/2018 Inactive (Response to an electronic controlled substance refill request - RxReferenceNumber: [id number]) MediHoney (calcium alginate-honey) 4" X 5" bandage RxNorm: 1 Application TOP QD 06/17/2018 06/26/2018 Inactive honey-hydrocolloid dressing 4" X 5" RxNorm: 1 Application TOP QD 06/17/2018 07/16/2018 Inactive furosemide 40 mg tablet RxNorm: 611056 TAKE ONE TABLET BY MOUTH EVERY MORNING NEEDED FOR EDEMA . TAKE WITH POTASSIUM 06/10/2018 07/09/2018 Inactive This is a refill request. hydrocodone 10 mg-acetaminophen 325 mg tablet RxNorm: 839228 1-2 Tablet(s) QID as needed for pain MUST LAST 30 DAYS 05/30/2018 06/27/2018 Inactive (Response to an electronic controlled substance refill request - RxReferenceNumber: [id number]) acyclovir 800 mg tablet RxNorm: 151578 1 Tablet(s) PO 5x day 201705/22/2018 Inactive Premarin 1.25 mg tablet RxNorm: 505672 1-2 Tablet(s) PO QD 05/15/20 18 07/13/2018 Inactive cyclobenzaprine 10 mg tablet RxNorm: 623880 1 Tablet(s) PO TID as needed for muscle spasm 05/09/2018 05/08/2018 Inactive Medrol (Dustin) 4 mg tablets in a dose pack RxNorm: 048620 Tablet(s) PO As Directed 05/02/2018 06/16/2018 Inactive hydrocodone 10 mg-acetaminophen 325 mg tablet RxNorm: 883867 1-2 Tablet(s) QID as needed for pain MUST LAST 30 DAYS 04/30/2018 05/29/2018 Inactive (Response to an electronic controlled substance refill request - RxReferenceNumber: [id number]) duloxetine 60 mg capsule,delayed release RxNorm: 124583 TAKE ONE CAPSULE BY MOUTH DAILY 04/16/2018 05/15/2018 Inactive Celebrex 200 mg capsule RxNorm: 138777 TAKE ONE CAPSULE BY MOUT H TWICE A DAY 04/16/2018 06/14/2018 Inactive Singulair 10 mg tablet RxNorm: 200051 TAKE ONE TABLET BY MOUTH JOSÉ Y 04/16/2018 11/19/2018 Inactive Lipitor 10 mg tablet RxNorm: 724927 TAKE ONE TABLET BY MOUTH AT BEDTIME 04/16/2018 05/15/2018 Inactive hydrocodone 10 mg-acetaminophen 325 mg tablet RxNorm: 852527 1-2 Tablet(s) QID as needed for pain MUST LAST 30 DAYS 03/29/2018 04/27/2018 Inactive (Response to an electronic controlled substance refill request - RxReferenceNumber: [id number]) cyclobenzaprine 10 mg tablet RxNorm: 165259 1 Tablet(s) PO TID as needed for muscle spasm 03/18/2018 05/09/2018 Inactive omeprazole 40 mg capsule,delayed release RxNorm: 413305 1 Capsu le(s) PO QD 02/26/2018 08/24/2018 Inactive hydrocodone 10 mg-acetaminophen 325 mg tablet RxNorm: 208738 1-2 Tablet(s) QID as needed for pain MUST LAST 30 DAYS 02/26/2018 03/27/2018 Inactive (Response to an electronic controlled substance refill request - RxReferenceNumber: [id number]) metoprolol tartrate 100 mg tablet RxNorm: 667264 1 Tablet(s) PO BID 02/18/2018 08/05/2018 Inactive Lyrica 75 mg capsule RxNorm: 383639 1 Capsule(s) PO QHS 01/30/2018 Inactive phentermine 37.5 mg tablet RxNorm: 908770 1 Tablet(s) PO QAM 201706/16/2018 Inactive hydrocodone 10 mg-acetaminophen 325 mg tablet RxNorm: 430488 1-2 Tablet(s) QID as needed for pain MUST LAST 30 DAYS 01/29/2018 02/25/2018 Inactive (Response to an electronic controlled substance refill request - RxReferenceNumber: [id number]) Klor-Con 8 mEq tablet,extended release RxNorm: 883936 1 Tablet( s) PO BID 01/14/2018 07/04/2018 Inactive allopurinol 300 mg tablet RxNorm: 075861 1 Tablet(s) PO QD 01/15/20 18 07/04/2018 Inactive Lipitor 10 mg tablet RxNorm: 768082 1 Tablet(s) PO QHS 01/14/201812/2017 Inactive triamterene 75 mg-hydrochlorothiazide 50 mg tablet RxNorm: 3 52161 1 Tablet(s) PO QD 01/14/2018 07/04/2018 Inactive hydrocodone 10 mg-acetaminophen 325 mg tablet RxNorm: 985059 1-2 Tablet(s) QID as needed for pain MUST LAST 30 DAYS 12/27/2017 01/25/2018 Inactive (Response to an electronic controlled substance refill request - RxReferenceNumber: [id number]) Onglyza 5 mg tablet RxNorm: 232428 1 Tablet(s) PO QD 12/18/201701/29 Inactive metformin 500 mg tablet RxNorm: 497333 1 Tablet(s) PO BID 12/11/2017 12/10/2017 Inactive metformin 500 mg tablet RxNorm: 692207 1 Tablet(s) PO BID 12/11/2017 12/17/2017 Inactive furosemide 40 mg tablet RxNorm: 587011 1 Tablet(s) PO Q AM prn edema--take with potassium 12/11/2017 06/08/2018 Inactive cyclobenzaprine 10 mg tablet RxNorm: 119457 1 Tablet(s) PO TID as needed for muscle spasm 12/11/2017 03/18/2018 Inactive hydrocodone 10 mg-acetaminophen 325 mg tablet RxNorm: 657721 1-2 Tablet(s) QID as needed for pain MUST LAST 30 DAYS 10/23/2017 11/21/2017 Inactive (Response to an electronic controlled substance refill request - RxReferenceNumber: [id number]) Lipitor 10 mg tablet RxNorm: 069060 1 Tablet(s) PO QHS 10/16/201703/2018 Inactive cyclobenzaprine 10 mg tablet RxNorm: 180104 1 Tablet(s) PO TID as needed for muscle spasm 10/09/2017 12/10/2017 Inactive hydroxyzine HCl 25 mg tablet RxNorm: 475531 1 Tablet(s) PO BID as needed for anxiety 09/20/2017 01/29/2018 Inactive Effexor XR 75 mg capsule,extended release RxNorm: 229768 1 Caps ule(s) PO QD 09/20/2017 01/29/2018 Inactive metoprolol tartrate 100 mg tablet RxNorm: 148135 1 Tablet(s) PO BID 08/20/2017 02/18/2018 Inactive baclofen 20 mg tablet RxNorm: 151147 1 Tablet(s) PO TID as needed for muscle spasm 08/20/2017 01/21/2019 Inactive clonidine HCl 0.1 mg tablet RxNorm: 972199 1 Tablet(s) PO QID 08/2005/16/2018 Inactive Seroquel 25 mg tablet RxNorm: 051658 1 Tablet(s) PO QHS 08/17/2017 Inactive Seroquel 25 mg tablet RxNorm: 719484 1 Tablet(s) PO QHS 08/17/2017 Inactive Diflucan 100 mg tablet RxNorm: 693651 TAKE ONE TABLET BY MOUTH JOSÉ Y 07/25/2017 08/07/2017 Inactive hydrocodone 10 mg-acetaminophen 325 mg tablet RxNorm: 826661 1-2 Tablet(s) QID as needed for pain MUST LAST 30 DAYS 07/19/2017 08/17/2017 Inactive (Response to an electronic controlled substance refill request - RxReferenceNumber: [id number]) clindamycin 300 mg capsule RxNorm: 408106 1 Capsule(s) PO TID 07/1907/28/2017 Inactive clotrimazole-betamethasone 1 %-0.05 % topical cream RxNorm: 651570 Application TOP BID to elbow rash 07/19/2017 06/16/2018 Inactive Singulair 10 mg tablet RxNorm: 092127 Tablet(s) TAKE ONE TABLET BY MOUTH DAILY 07/18/2017 04/13/2018 Inactive triamterene 75 mg-hydrochlorothiazide 50 mg tablet RxNorm: 3 70523 1 Tablet(s) PO QD 07/18/2017 01/14/2018 Inactive Celebrex 200 mg capsule RxNorm: 116674 Capsule(s) TAKE ONE CAPSULE BY MOUTH TWICE A DAY 07/18/2017 10/15/2017 Inactive hydrocodone 10 mg-acetaminophen 325 mg tablet RxNorm: 586476 1-2 Tablet(s) QID as needed for pain MUST LAST 30 DAYS 06/19/2017 07/18/2017 Inactive (Response to an electronic controlled substance refill request - RxReferenceNumber: [id number]) hydrocodone 10 mg-acetaminophen 325 mg tablet RxNorm: 741617 1-2 Tablet(s) QID as needed for pain MUST LAST 30 DAYS 06/19/2017 06/18/2017 Inactive (Response to an electronic controlled substance refill request - RxReferenceNumber: [id number]) baclofen 20 mg tablet RxNorm: 895971 1 Tablet(s) PO TID as needed for muscle spasm 06/18/2017 08/20/2017 Inactive Medrol (Dustin) 4 mg tablets in a dose pack RxNorm: 247588 Tablet(s) PO As Directed 06/05/2017 07/18/2017 Inactive omeprazole 40 mg capsule,delayed release RxNorm: 802978 1 Capsu le(s) PO QD 04/20/2017 10/16/2017 Inactive Premarin 1.25 mg tablet RxNorm: 830291 1-2 Tablet(s) PO QD 04/11/20 17 05/15/2018 Inactive duloxetine 60 mg capsule,delayed release RxNorm: 005017 1 Capsu le(s) PO QD 04/11/2017 09/19/2017 Inactive furosemide 40 mg tablet RxNorm: 661267 1 Tablet(s) PO Q AM prn edema--take with potassium 04/11/2017 12/11/2017 Inactive Klor-Con 8 mEq tablet,extended release RxNorm: 103985 1 Tablet( s) PO BID 04/11/2017 01/14/2018 Inactive Lipitor 10 mg tablet RxNorm: 555720 1 Tablet(s) PO QHS 04/11/201702/2018 Inactive amlodipine 5 mg-benazepril 20 mg capsule RxNorm: 485698 1 Capsu le(s) PO QD 04/11/2017 01/29/2018 Inactive allopurinol 300 mg tablet RxNorm: 739061 1 Tablet(s) PO QD 04/11/2001/14/2018 Inactive clonidine HCl 0.1 mg tablet RxNorm: 772212 1 Tablet(s) PO QID 04/0508/19/2017 Inactive baclofen 20 mg tablet RxNorm: 619724 1 Tablet(s) PO TID as needed for muscle spasm 04/02/2017 06/18/2017 Inactive Premarin 1.25 mg tablet RxNorm: 898383 1-2 Tablet(s) PO QD 03/20/20 17 04/10/2017 Inactive hydrocodone 10 mg-acetaminophen 325 mg tablet RxNorm: 701066 1-2 Tablet(s) QID as needed for pain MUST LAST 30 DAYS 03/14/2017 01/21/2019 Inactive (Response to an electronic controlled substance refill request - RxReferenceNumber: [id number]) metoprolol tartrate 100 mg tablet RxNorm: 471709 1 Tablet(s) PO BID 02/12/2017 08/20/2017 Inactive hydrocodone 10 mg-acetaminophen 325 mg tablet RxNorm: 153036 1-2 Tablet(s) QID as needed for pain MUST LAST 30 DAYS 02/08/2017 03/09/2017 Inactive (Response to an electronic controlled substance refill request - RxReferenceNumber: [id number]) metoprolol tartrate 100 mg tablet RxNorm: 439520 TAKE O NE TABLET BY MOUTH TWICE A DAY 01/11/2017 02/12/2017 Inactive metoprolol tartrate 100 mg tablet RxNorm: 728760 1 Tablet(s) PO BID 12/18/2016 12/17/2016 Inactive metoprolol tartrate 100 mg tablet RxNorm: 672724 1 Tablet(s) PO BID 12/18/2016 01/10/2017 Inactive furosemide 40 mg tablet RxNorm: 945289 1 Tablet(s) PO Q AM prn edema--take with potassium 12/13/2016 02/10/2017 Inactive amitriptyline 100 mg tablet RxNorm: 862924 1 Tablet(s) PO QHS 11/2812/12/2016 Inactive baclofen 20 mg tablet RxNorm: 306863 1 Tablet(s) PO TID as needed for muscle spasm 11/14/2016 04/01/2017 Inactive triamterene 75 mg-hydrochlorothiazide 50 mg tablet RxNorm: 3 40932 1 Tablet(s) PO QD 11/14/2016 11/13/2016 Inactive metolazone 2.5 mg tablet RxNorm: 968324 TAKE ONE TABLET BY MOUTH DAILY NEEDED FOR EDEMA 11/14/2016 12/12/2016 Inactive triamterene 75 mg-hydrochlorothiazide 50 mg tablet RxNorm: 3 61193 1 Tablet(s) PO QD 11/14/2016 07/18/2017 Inactive amitriptyline 50 mg tablet RxNorm: 581133 TAKE ONE TABL ET BY MOUTH AT BEDTIME NEEDED FOR SLEEP 11/14/2016 11/27/2016 Inactive Cymbalta 60 mg capsule,delayed release RxNorm: 413776 1 Capsule (s) PO QHS 11/14/2016 12/12/2016 Inactive clonidine HCl 0.1 mg tablet RxNorm: 665196 1 Tablet(s) PO QID 11/1304/04/2017 Inactive amitriptyline 50 mg tablet RxNorm: 998941 1 Tablet(s) P O QHS as needed for sleep 11/01/2016 11/27/2016 Inactive duloxetine 60 mg capsule,delayed release RxNorm: 054000 TAKE ONE CAPSULE BY MOUTH DAILY 10/20/2016 01/17/2017 Inactive allopurinol 300 mg tablet RxNorm: 022791 TAKE ONE TABLET BY LOPEZ TH DAILY 10/20/2016 01/16/2017 Inactive Lyrica 75 mg capsule RxNorm: 522977 TAKE ONE CAPSULE BY MOUTH EVERY NIGHT AT BEDTIME 10/20/2016 12/10/2016 Inactive Klor-Con 8 mEq tablet,extended release RxNorm: 865322 T FARRUKH ONE TABLET BY MOUTH TWICE A DAY 10/20/2016 01/17/2017 Inactive Celebrex 200 mg capsule RxNorm: 176162 TAKE ONE CAPSULE BY MOUT H TWICE A DAY 10/20/2016 07/18/2017 Inactive Bystolic 10 mg tablet RxNorm: 242671 TAKE ONE TABLET BY MOUTH EVERY NIGHT AT BEDTIME 10/20/2016 12/17/2016 Inactive amlodipine 5 mg-benazepril 20 mg capsule RxNorm: 339552 TAKE ONE CAPSULE BY MOUTH EVERY NIGHT AT BEDTIME -- TO REPLACE AMLODOPINE 10/20/20162016 Inactive Lipitor 10 mg tablet RxNorm: 050276 TAKE ONE TABLET BY MOUTH EVERY NIGHT AT BEDTIME 10/20/2016 01/17/2017 Inactive alprazolam 0.5 mg tablet RxNorm: 024654 3 Tablet(s) PO QHS as needed for sleep/anxiety 09/20/2016 10/31/2016 Inactive Tamiflu 75 mg capsule RxNorm: 535236 1 Capsule(s) PO QD 09/19/2016 Inactive Lyrica 75 mg capsule RxNorm: 047951 1 Capsule(s) PO QHS 09/19/2016 Inactive prednisone 20 mg tablet RxNorm: 557418 1 Tablet(s) PO QD 08/10/2016 1 10/17/2015 Inactive doxycycline hyclate 100 mg capsule RxNorm: 4946490 1 Capsule(s) PO BID 08/10/2016 08/19/2016 Inactive Medrol (Dustin) 4 mg tablets in a dose pack RxNorm: 356415 Tablet(s) PO As Directed 07/31/2016 08/22/2016 Inactive Singulair 10 mg tablet RxNorm: 308145 TAKE ONE TABLET BY MOUTH JOSÉ Y 07/27/2016 07/18/2017 Inactive hydrocodone 10 mg-acetaminophen 325 mg tablet RxNorm: 530692 1-2 Tablet(s) QID as needed for pain MUST LAST 30 DAYS 07/26/2016 08/24/2016 Inactive (Response to an electronic controlled substance refill request - RxReferenceNumber: [id number]) alprazolam 0.5 mg tablet RxNorm: 002792 3 Tablet(s) PO QHS as needed for anxiety or sleep 07/26/2016 09/20/2016 Inactive clindamycin 300 mg capsule RxNorm: 511721 1 Capsule(s) PO TID 07/2007/29/2016 Inactive Diflucan 100 mg tablet RxNorm: 692929 1 Tablet(s) PO QD 07/20/2016 Inactive Levaquin 500 mg tablet RxNorm: 389810 1 Tablet(s) PO QD 07/17/2016 Inactive Levaquin 500 mg tablet RxNorm: 705116 1 Tablet(s) PO QD 07/10/2016 Inactive Levaquin 500 mg tablet RxNorm: 802377 1 Tablet(s) PO QD 07/10/2016 Inactive mupirocin 2 % topical ointment RxNorm: 163043 TOP Apply topically to affected areas twice daily 07/06/2016 09/18/2016 Inactive Singulair 10 mg tablet RxNorm: 484987 TAKE ONE TABLET BY MOUTH JOSÉ Y 06/21/2016 01/21/2019 Inactive alprazolam 0.5 mg tablet RxNorm: 593762 TAKE THREE TABL ETS BY MOUTH AT BEDTIME NEEDED FOR SLEEP OR STRESS 05/22/2016 06/20/2016 Inactive triamterene 75 mg-hydrochlorothiazide 50 mg tablet RxNorm: 3 16864 1 Tablet(s) PO QD 04/26/2016 01/12/2020 Inactive Premarin 1.25 mg tablet RxNorm: 142029 1-2 Tablet(s) PO QD 04/26/2003/20/2017 Inactive Klor-Con 8 mEq tablet,extended release RxNorm: 016740 1 Tablet( s) PO BID 04/26/2016 10/19/2016 Inactive Celebrex 200 mg capsule RxNorm: 369690 1 Capsule(s) PO BID TAKE ONE CAPSULE BY MOUTH EVERY DAY 04/26/2016 10/19/2016 Inactive Lipitor 10 mg tablet RxNorm: 360865 1 Tablet(s) PO QHS 04/26/201605/2017 Inactive allopurinol 300 mg tablet RxNorm: 895533 1 Tablet(s) PO QD TAKE ONE TABLET BY MOUTH EVERY DAY 04/26/2016 10/19/2016 Inactive amlodipine 5 mg-benazepril 20 mg capsule RxNorm: 661115 1 Capsule(s) PO QHS replaces amlodopine 04/26/2016 10/19/2016 Inactive duloxetine 60 mg capsule,delayed release RxNorm: 429107 1 Capsu le(s) PO QD 04/26/2016 10/19/2016 Inactive Bystolic 10 mg tablet RxNorm: 552919 1 Tablet(s) PO QHS 04/26/2016 Inactive Singulair 10 mg tablet RxNorm: 126088 1 Tablet(s) PO QD TAKE ONE TABLET BY MOUTH DAILY 04/26/2016 06/20/2016 Inactive clonidine HCl 0.1 mg tablet RxNorm: 735973 1 Tablet(s) PO QID 04/2610/22/2016 Inactive hydrocodone 10 mg-acetaminophen 325 mg tablet RxNorm: 768368 1-2 Tablet(s) QID as needed for pain TAKE ONE TO TWO TABLETS BY MOUTH FOUR TIMES A DAY . MUST LAST 30 DAYS 03/31/2016 04/29/2016 Inactive (Response to an electronic controlled substance refill request [id number]) Klor-Con 8 mEq tablet,extended release RxNorm: 269258 T FARRUKH ONE TABLET BY MOUTH TWICE A DAY 03/24/2016 09/29/2019 Inactive prednisone 20 mg tablet RxNorm: 325589 1 Tablet(s) PO QD 03/09/2016 0 03/08/2016 Inactive prednisone 20 mg tablet RxNorm: 872755 1 Tablet(s) PO QD 03/09/2016 0 03/13/2016 Inactive alprazolam 0.5 mg tablet RxNorm: 507823 3 Tablet(s) PO QHS as needed for sleep/stress 03/02/2016 01/21/2019 Inactive mupirocin 2 % topical ointment RxNorm: 381476 TOP twice daily to affected areas of face and neck 02/21/2016 04/25/2016 Inactive clonidine HCl 0.1 mg tablet RxNorm: 089235 TAKE ONE TAB LET BY MOUTH FOUR TIMES A DAY 02/15/2016 09/29/2019 Inactive clonidine HCl 0.1 mg tablet RxNorm: 449579 1 Tablet(s) PO QID 02/1404/25/2016 Inactive Premarin 1.25 mg tablet RxNorm: 628791 1-2 Tablet(s) PO QD 02/15/20 16 03/15/2016 Inactive Klor-Con 8 mEq tablet,extended release RxNorm: 374100 T FARRUKH ONE TABLET BY MOUTH TWICE A DAY 02/15/2016 03/15/2016 Inactive potassium chloride ER 20 mEq tablet,extended release(part/cr yst) RxNorm: 813138 2 Tablet(s) PO BID 02/15/2016 03/15/2016 Inactive Macrobid 100 mg capsule RxNorm: 477825 1 Capsule(s) PO BID 01/24/20 16 01/30/2016 Inactive prednisone 20 mg tablet RxNorm: 796155 Take 3tabs PO QD x 2 days, then 2 tabs PO QD x 2 days, then 1 tab PO QD x 2 days, then 1/2 tab PO QDy x 2 days 12/23/2015 04/25/2016 Inactive Klor-Con 8 mEq tablet,extended release RxNorm: 066909 T FARRUKH ONE TABLET BY MOUTH TWICE A DAY 12/20/2015 02/14/2016 Inactive alprazolam 1 mg tablet RxNorm: 136513 1 1/2 Tablet(s) PO QHS 201501/23/2016 Inactive nystatin 100,000 unit/gram topical cream RxNorm: 246467 APPLY TO AFFECTED AREA(S) TWO TIMES A DAY 11/30/2015 12/14/2015 Inactive Singulair 10 mg tablet RxNorm: 594702 TAKE ONE TABLET BY MOUTH JOSÉ Y 11/18/2015 04/25/2016 Inactive allopurinol 300 mg tablet RxNorm: 160157 1 Tablet(s) PO QD TAKE ONE TABLET BY MOUTH EVERY DAY 10/26/2015 04/22/2016 Inactive Singulair 10 mg tablet RxNorm: 608162 TAKE ONE TABLET BY MOUTH JOSÉ Y 10/26/2015 11/17/2015 Inactive duloxetine 60 mg capsule,delayed release RxNorm: 578593 1 Capsu le(s) PO QD 10/26/2015 04/22/2016 Inactive triamterene 75 mg-hydrochlorothiazide 50 mg tablet RxNorm: 3 10531 1 Tablet(s) PO QD 10/26/2015 11/14/2016 Inactive potassium chloride ER 20 mEq tablet,extended release(part/cr yst) RxNorm: 472381 2 Tablet(s) PO BID 10/26/2015 02/14/2016 Inactive Lipitor 10 mg tablet RxNorm: 764543 1 Tablet(s) PO QHS 10/26/2015 Inactive amlodipine 5 mg-benazepril 20 mg capsule RxNorm: 409667 1 Capsule(s) PO QHS replaces amlodopine 10/26/2015 04/22/2016 Inactive Bystolic 10 mg tablet RxNorm: 277741 1 Tablet(s) PO QHS 10/26/2015 Inactive amlodipine 5 mg-benazepril 20 mg capsule RxNorm: 799546 1 Capsule(s) PO QHS replaces amlodopine 10/06/2015 10/25/2015 Inactive amlodipine 5 mg tablet RxNorm: 025338 1 Tablet(s) PO QHS 09/30/2015 0 04/25/2016 Inactive metolazone 2.5 mg tablet RxNorm: 425396 TAKE ONE TABLET BY MOUTH DAILY NEEDED FOR EDEMA 09/30/2015 01/21/2019 Inactive duloxetine 60 mg capsule,delayed release RxNorm: 518614 1 Capsu le(s) PO QD 09/30/2015 10/25/2015 Inactive cephalexin 500 mg capsule RxNorm: 709724 1 Capsule(s) PO BID 201509/23/2015 Inactive mupirocin 2 % topical ointment RxNorm: 078873 TOP twice daily to affected areas of face and neck 09/14/2015 02/20/2016 Inactive baclofen 20 mg tablet RxNorm: 615730 1 Tablet(s) PO TID as needed for muscle spasm 09/01/2015 11/14/2016 Inactive clonidine HCl 0.1 mg tablet RxNorm: 956032 1 Tablet(s) PO QID 09/0102/14/2016 Inactive alprazolam 1 mg tablet RxNorm: 151917 1 1/2 Tablet(s) PO QHS 201409/09/2015 Inactive baclofen 20 mg tablet RxNorm: 217095 1 Tablet(s) PO TID as needed for muscle spasm 07/23/2015 09/01/2015 Inactive omeprazole 40 mg capsule,delayed release RxNorm: 395231 1 Capsu le(s) PO QD 07/23/2015 04/25/2016 Inactive alprazolam 1 mg tablet RxNorm: 130636 1 1/2 Tablet(s) PO QHS 201408/10/2015 Inactive Bystolic 10 mg tablet RxNorm: 562910 1 Tablet(s) PO BID 06/24/2015 Inactive allopurinol 300 mg tablet RxNorm: 991888 1 Tablet(s) PO QD TAKE ONE TABLET BY MOUTH EVERY DAY 06/23/2015 10/20/2015 Inactive alprazolam 1 mg tablet RxNorm: 721860 1 1/2 Tablet(s) PO QHS 201407/06/2015 Inactive clonidine HCl 0.1 mg tablet RxNorm: 896978 1 Tablet(s) PO QID 06/0209/01/2015 Inactive clonidine HCl 0.1 mg tablet RxNorm: 830735 1 Tablet(s) PO QID 06/0206/01/2015 Inactive Cymbalta 60 mg capsule,delayed release RxNorm: 056202 1 Capsule (s) PO QHS 06/02/2015 08/30/2015 Inactive Cymbalta 60 mg capsule,delayed release RxNorm: 747624 1 Capsule (s) PO QHS 06/02/2015 06/01/2015 Inactive clonidine HCl 0.1 mg tablet RxNorm: 887447 1 Tablet(s) PO TID 05/3106/01/2015 Inactive replaces 0.2mg dose metolazone 2.5 mg tablet RxNorm: 774425 TAKE ONE TABLET BY MOUTH DAILY NEEDED FOR EDEMA 05/21/2015 06/19/2015 Inactive Singulair 10 mg tablet RxNorm: 315775 TAKE ONE TABLET BY MOUTH JOSÉ Y 05/21/2015 10/17/2015 Inactive Cymbalta 30 mg capsule,delayed release RxNorm: 285899 1 Capsule (s) PO QHS 05/20/2015 11/14/2016 Inactive betamethasone valerate 0.1 % topical cream RxNorm: 757910 Appli cation TOP BID 05/10/2015 04/25/2016 Inactive Bactroban 2 % topical ointment RxNorm: 206000 Application TOP BID 0 05/10/2015 06/20/2015 Inactive baclofen 20 mg tablet RxNorm: 739261 1 Tablet(s) PO TID as needed 0 04/26/2015 07/23/2015 Inactive Lipitor 10 mg tablet RxNorm: 566158 1 Tablet(s) PO QHS 04/26/201508/2016 Inactive clonidine HCl 0.1 mg tablet RxNorm: 350868 1 Tablet(s) PO TID 04/2605/30/2015 Inactive replaces 0.2mg dose Klor-Con 8 mEq tablet,extended release RxNorm: 015525 1 Tablet( s) PO BID 04/26/2015 04/25/2016 Inactive metolazone 2.5 mg tablet RxNorm: 592175 1 Tablet(s) PO QD as ne eded for edema 04/26/2015 04/25/2015 Inactive triamterene 75 mg-hydrochlorothiazide 50 mg tablet RxNorm: 3 45698 1 Tablet(s) PO QD 04/26/2015 10/22/2015 Inactive Premarin 1.25 mg tablet RxNorm: 743865 1-2 Tablet(s) PO QD 04/26/20 15 10/22/2015 Inactive Bystolic 10 mg tablet RxNorm: 360034 1 Tablet(s) PO QAM TAKE ONE TABLET BY MOUTH EVERY MORNING 04/23/2015 06/23/2015 Inactive clonidine HCl 0.1 mg tablet RxNorm: 894668 1 Tablet(s) PO TID 03/2304/25/2015 Inactive replaces 0.2mg dose nystatin 100,000 unit/gram topical cream RxNorm: 370055 Applica tion TOP BID 03/23/2015 06/20/2015 Inactive baclofen 20 mg tablet RxNorm: 584127 1 Tablet(s) PO TID as needed 0 03/23/2015 04/25/2015 Inactive Premarin 1.25 mg tablet RxNorm: 345455 1-2 Tablet(s) PO QD 03/23/20 15 04/25/2015 Inactive Klor-Con 8 mEq tablet,extended release RxNorm: 050999 1 Tablet( s) PO BID 03/23/2015 04/25/2015 Inactive cefdinir 300 mg capsule RxNorm: 039139 2 Capsule(s) PO QD 03/16/2015 03/25/2015 Inactive baclofen 20 mg tablet RxNorm: 128996 1 Tablet(s) PO TID as needed 0 03/02/2015 03/22/2015 Inactive allopurinol 300 mg tablet RxNorm: 933579 1 Tablet(s) PO QD TAKE ONE TABLET BY MOUTH EVERY DAY 02/22/2015 05/22/2015 Inactive Klor-Con M20 mEq tablet,extended release RxNorm: 131885 2 Tablet(s) PO BID to use with lasix 02/22/2015 06/20/2015 Inactive clonidine HCl 0.1 mg tablet RxNorm: 206015 1 Tablet(s) PO TID 02/1903/22/2015 Inactive replaces 0.2mg dose Lipitor 10 mg tablet RxNorm: 162392 1 Tablet(s) PO QHS 01/20/201506/2015 Inactive Lipitor 10 mg tablet RxNorm: 524708 1 Tablet(s) PO QHS 01/20/2015 Inactive Singulair 10 mg tablet RxNorm: 211767 1 Tablet(s) PO QD TAKE ONE TABLET BY MOUTH EVERY DAY 11/20/2014 05/18/2015 Inactive Lipitor 10 mg tablet RxNorm: 596699 1 Tablet(s) PO QHS 11/20/201408/2015 Inactive allopurinol 300 mg tablet RxNorm: 627486 1 Tablet(s) PO QD TAKE ONE TABLET BY MOUTH EVERY DAY 11/20/2014 02/16/2015 Inactive Bystolic 10 mg tablet RxNorm: 820779 1 Tablet(s) PO QAM TAKE ONE TABLET BY MOUTH EVERY MORNING 11/20/2014 04/22/2015 Inactive Klor-Con 8 mEq tablet,extended release RxNorm: 620389 1 Tablet( s) PO BID 11/20/2014 02/17/2015 Inactive baclofen 20 mg tablet RxNorm: 203893 1 Tablet(s) PO TID as needed 0 11/20/2014 01/21/2019 Inactive baclofen 20 mg tablet RxNorm: 899480 1 Tablet(s) PO TID as needed 0 10/27/2014 11/19/2014 Inactive baclofen 20 mg tablet RxNorm: 203393 1 Tablet(s) PO TID as needed 0 10/26/2014 03/01/2015 Inactive allopurinol 300 mg tablet RxNorm: 268890 1 Tablet(s) PO QD TAKE ONE TABLET BY MOUTH EVERY DAY 10/26/2014 11/20/2014 Inactive Bystolic 10 mg tablet RxNorm: 844608 1 Tablet(s) PO QAM TAKE ONE TABLET BY MOUTH EVERY MORNING 10/26/2014 11/20/2014 Inactive clonidine HCl 0.1 mg tablet RxNorm: 042346 1 Tablet(s) PO TID 09/2805/27/2019 Inactive replaces 0.2mg dose clonidine HCl 0.1 mg tablet RxNorm: 674828 1 Tablet(s) PO TID 09/2802/18/2015 Inactive replaces 0.2mg dose baclofen 20 mg tablet RxNorm: 932887 1 Tablet(s) PO TID as needed 1 11/01/2013 08/30/2014 Inactive Lipitor 10 mg tablet RxNorm: 783913 1 Tablet(s) PO QHS 08/31/2014 Inactive baclofen 20 mg tablet RxNorm: 668062 1 Tablet(s) PO TID as needed 1 11/01/2013 10/26/2014 Inactive triamterene 75 mg-hydrochlorothiazide 50 mg tablet RxNorm: 3 75420 1 Tablet(s) PO QD 08/31/2014 02/26/2015 Inactive Klor-Con 8 mEq tablet,extended release RxNorm: 613848 1 Tablet( s) PO BID 08/31/2014 11/20/2014 Inactive baclofen 20 mg tablet RxNorm: 000830 1 Tablet(s) PO TID as needed 1 09/30/2013 10/25/2014 Inactive baclofen 20 mg tablet RxNorm: 918066 1 Tablet(s) PO TID as needed 1 09/30/2013 08/31/2014 Inactive omeprazole 40 mg capsule,delayed release RxNorm: 446123 1 Capsu le(s) PO QD 07/21/2014 07/23/2015 Inactive Flonase 50 mcg/actuation nasal spray,suspension RxNorm: 8963 23 1 Spencer NASAL BID 07/15/2014 04/09/2017 Inactive hydrocodone 10 mg-acetaminophen 325 mg tablet RxNorm: 934569 1-2 Tablet(s) QID as needed for pain TAKE ONE TO TWO TABLETS BY MOUTH FOUR TIMES A DAY . MUST LAST 30 DAYS 06/30/2014 07/27/2014 Inactive (Response to an electronic controlled substance refill request - RxReferenceNumber: [id number]) baclofen 20 mg tablet RxNorm: 613331 1 Tablet(s) PO TID as needed 1 07/31/2014 Inactive Singulair 10 mg tablet RxNorm: 841666 1 Tablet(s) PO QD TAKE ONE TABLET BY MOUTH EVERY DAY 05/25/2014 11/20/2014 Inactive Bystolic 10 mg tablet RxNorm: 950392 TAKE ONE TABLET BY MOUTH E VERY MORNING 05/25/2014 09/21/2014 Inactive allopurinol 300 mg tablet RxNorm: 648045 1 Tablet(s) PO QD TAKE ONE TABLET BY MOUTH EVERY DAY 05/25/2014 10/21/2014 Inactive baclofen 20 mg tablet RxNorm: 810093 1 Tablet(s) PO TID as needed 0 05/25/2014 06/29/2014 Inactive allopurinol 300 mg tablet RxNorm: 623344 TAKE ONE TABLET BY LOPEZ TH EVERY DAY 05/25/2014 09/21/2014 Inactive Singulair 10 mg tablet RxNorm: 279309 1 Tablet(s) PO QD TAKE ONE TABLET BY MOUTH EVERY DAY 05/25/2014 05/24/2014 Inactive Bystolic 10 mg tablet RxNorm: 353264 1 Tablet(s) PO QAM TAKE ONE TABLET BY MOUTH EVERY MORNING 05/25/2014 10/21/2014 Inactive metolazone 2.5 mg tablet RxNorm: 785307 1 Tablet(s) PO QD as ne eded for edema 05/18/2014 04/25/2015 Inactive Lasix 40 mg tablet RxNorm: 524753 1 Tablet(s) PO QAM s hould take potassium supplementation with this medication 05/14/2014 05/17/2014 Inactive hydrocodone 10 mg-acetaminophen 325 mg tablet RxNorm: 145463 1-2 Tablet(s) QID as needed for pain TAKE ONE TO TWO TABLETS BY MOUTH FOUR TIMES A DAY . MUST LAST 30 DAYS 05/07/2014 06/05/2014 Inactive (Response to an electronic controlled substance refill request - RxReferenceNumber: [id number]) alprazolam 0.5 mg tablet RxNorm: 768545 TAKE ONE TABLET BY MOUTH TWICE A DAY , MUST LAST 30 DAYS 05/07/2014 05/22/2016 Inactive (Response to a n electronic controlled substance refill request - RxReferenceNumber: [id number]) diclofenac sodium 75 mg tablet,delayed release RxNorm: 27519 6 1 Tablet(s) PO BID for pain 04/24/2014 07/20/2014 Inactive Celebrex 200 mg capsule RxNorm: 542638 TAKE ONE CAPSULE BY MOUT H EVERY DAY 04/24/2014 07/20/2014 Inactive alprazolam 0.5 mg tablet RxNorm: 527062 TAKE ONE TABLET BY MOUTH TWICE A DAY , MUST LAST 30 DAYS 03/24/2014 04/22/2014 Inactive (Response to a n electronic controlled substance refill request - RxReferenceNumber: [id number]) diclofenac sodium 75 mg tablet,delayed release RxNorm: 34184 6 1 Tablet(s) PO BID for pain 03/24/2014 04/24/2014 Inactive clonidine HCl 0.1 mg tablet RxNorm: 079156 1 Tablet(s) PO TID 03/2409/28/2014 Inactive replaces 0.2mg dose Klor-Con 8 mEq tablet,extended release RxNorm: 854239 1 Tablet( s) PO BID 02/26/2014 08/31/2014 Inactive diclofenac sodium 75 mg tablet,delayed release RxNorm: 82933 6 1 Tablet(s) PO BID for pain 02/25/2014 03/24/2014 Inactive hydrocodone 10 mg-acetaminophen 325 mg tablet RxNorm: 453292 1-2 Tablet(s) QID as needed for pain TAKE ONE TO TWO TABLETS BY MOUTH FOUR TIMES A DAY . MUST LAST 30 DAYS 02/25/2014 03/26/2014 Inactive (Response to an electronic controlled substance refill request - RxReferenceNumber: [id number]) alprazolam 0.5 mg tablet RxNorm: 940019 Tablet(s) PO BI D as needed for anxiety TAKE ONE TABLET BY MOUTH TWICE A DAY , MUST LAST 30 DAYS 02/25/2014 Inactive (Response to an electronic controlled [place] bstance refill request - RxReferenceNumber: [id number]) [AttnRPh: Saving apply/adjudicate RxGRP:SG20 RxBIN:[id number] RxN: ID#:[id number]] alprazolam 0.5 mg tablet RxNorm: 544867 Tablet(s) TAKE ONE TABLET BY MOUTH TWICE A DAY , MUST LAST 30 DAYS 01/27/2014 02/24/2014 Inactive (Respo nse to an electronic controlled substance refill request - RxReferenceNumber: [id number]) [AttnRPh: Saving apply/adjudicate RxGRP:SG20 RxBIN:[id number] RxPCN: ID#:[id number]] hydrocodone 10 mg-acetaminophen 325 mg tablet RxNorm: 391974 1-2 Tablet(s) QID as needed for pain TAKE ONE TO TWO TABLETS BY MOUTH FOUR TIMES A DAY . MUST LAST 30 DAYS 01/27/2014 02/24/2014 Inactive (Response to an electronic controlled substance refill request - RxReferenceNumber: [id number]) alprazolam 0.5 mg tablet RxNorm: 816128 TAKE ONE TABLET BY MOUTH TWICE A DAY , MUST LAST 30 DAYS 01/27/2014 01/26/2014 Inactive (Response to a n electronic controlled substance refill request - RxReferenceNumber: [id number]) Premarin 1.25 mg tablet RxNorm: 542562 1-2 Tablet(s) PO QD 01/28/20 14 07/25/2014 Inactive alprazolam 0.5 mg tablet RxNorm: 128512 TAKE ONE TABLET BY MOUTH TWICE A DAY , MUST LAST 30 DAYS 01/27/2014 01/27/2014 Inactive (Response to a n electronic controlled substance refill request - RxReferenceNumber: [id number]) hydrocodone 10 mg-acetaminophen 325 mg tablet RxNorm: 910812 TAKE ONE TO TWO TABLETS BY MOUTH FOUR TIMES A DAY . MUST LAST 30 DAYS 01/27/20142013 Inactive (Response to an electronic controlled [place] bstance refill request - RxReferenceNumber: [id number]) Celebrex 200 mg capsule RxNorm: 676586 1 Capsule(s) PO QD TAKE ONE CAPSULE BY MOUTH EVERY DAY 12/29/2013 04/27/2014 Inactive hydrocodone 10 mg-acetaminophen 325 mg tablet RxNorm: 410882 1-2 Tablet(s) PO QID as needed for severe pain 12/29/2013 01/27/2014 Inactive allopurinol 300 mg tablet RxNorm: 799879 1 Tablet(s) PO QD TAKE ONE TABLET BY MOUTH EVERY DAY 12/29/2013 05/24/2014 Inactive alprazolam 0.5 mg tablet RxNorm: 864228 TAKE ONE TABLET BY MOUTH TWICE A DAY , MUST LAST 30 DAYS 12/29/2013 01/27/2014 Inactive (Response to a n electronic controlled substance refill request - RxReferenceNumber: [id number]) Celebrex 200 mg capsule RxNorm: 968139 1 Capsule(s) PO QD TAKE ONE CAPSULE BY MOUTH EVERY DAY 12/29/2013 12/29/2013 Inactive Bystolic 10 mg tablet RxNorm: 752939 1 Tablet(s) PO QAM TAKE ONE TABLET BY MOUTH EVERY MORNING 12/29/2013 05/24/2014 Inactive Bystolic 10 mg tablet RxNorm: 691998 1 Tablet(s) PO QAM TAKE ONE TABLET BY MOUTH EVERY MORNING 12/29/2013 12/29/2013 Inactive Singulair 10 mg tablet RxNorm: 202213 1 Tablet(s) PO QD TAKE ONE TABLET BY MOUTH EVERY DAY 12/29/2013 05/25/2014 Inactive hydrocodone 10 mg-acetaminophen 325 mg tablet RxNorm: 901856 TAKE ONE TO TWO TABLETS BY MOUTH FOUR TIMES A DAY . MUST LAST 30 DAYS 12/29/20132013 Inactive (Response to an electronic controlled [place] bstance refill request - RxReferenceNumber: [id number]) Trazadone 75mg Tablet RxNorm: 1 Tablet(s) PO QHS as needed 03/23/2014 Inactive Trazadone 75mg Tablet RxNorm: 1 Tablet(s) PO QHS 12/24/20132014 Inactive Soma 350 mg tablet RxNorm: 850919 Tablet(s) PO TAKE ON E TABLET BY MOUTH THREE TIMES A DAY NEEDED FOR MUSCLE SPASMS. THIS MUST LAST 30 DAYS BETWEEN REFILLS. 12/10/2013 12/22/2013 Inactive (Appended: Cont rolled substance eRx refill - RxReferenceNumber: [id number]) diclofenac sodium 75 mg tablet,delayed release RxNorm: 23525 6 1 Tablet(s) PO BID for pain 12/10/2013 02/24/2014 Inactive allopurinol 300 mg tablet RxNorm: 826063 1 Tablet(s) PO QD 11/20/19 14 12/29/2013 Inactive alprazolam 0.5 mg tablet RxNorm: 595960 2 Tablet(s) PO BID 11/13/19 14 12/29/2013 Inactive prn clonidine 0.1 mg tablet RxNorm: 450441 1 Tablet(s) PO TID 11/12/2013 02/09/2014 Inactive replaces 0.2mg dose Klor-Con M20 mEq tablet,extended release RxNorm: 830370 2 Tablet(s) PO BID to use with lasix 11/12/2013 05/10/2014 Inactive Singulair 10 mg tablet RxNorm: 619764 1 Tablet(s) PO QD 11/12/2013 Inactive hydrocodone 10 mg-acetaminophen 325 mg tablet RxNorm: 718838 1-2 Tablet(s) PO QID as needed for severe pain 11/12/2013 12/28/2013 Inactive Bystolic 10 mg tablet RxNorm: 001649 1 Tablet(s) PO QAM 11/12/2013 Inactive Soma 350 mg tablet RxNorm: 195878 Tablet(s) PO TAKE ON E TABLET BY MOUTH THREE TIMES A DAY NEEDED FOR MUSCLE SPASMS. THIS MUST LAST 30 DAYS BETWEEN REFILLS. 10/13/2013 12/10/2013 Inactive (Appended: Cont rolled substance eRx refill - RxReferenceNumber: [id number]) hydrocodone 10 mg-acetaminophen 325 mg tablet RxNorm: 572888 1-2 Tablet(s) PO QID as needed for severe pain 10/03/2013 11/11/2013 Inactive diclofenac sodium 75 mg tablet,delayed release RxNorm: 17167 8 1 Tablet(s) PO BID for pain 09/11/2013 12/10/2013 Inactive alprazolam 0.5 mg tablet RxNorm: 547579 1 Tablet(s) PO BID May refill on 04/26/13 09/01/2013 10/30/2013 Inactive prn hydrocodone 10 mg-acetaminophen 325 mg tablet RxNorm: 508176 1-2 Tablet(s) PO QID as needed for severe pain 09/01/2013 10/02/2013 Inactive triamterene 75 mg-hydrochlorothiazide 50 mg tablet RxNorm: 3 52600 1 Tablet(s) PO QD 08/04/2013 08/31/2014 Inactive cyclobenzaprine 10 mg tablet RxNorm: 480604 1 Tablet(s) PO TID prn spasm 08/04/2013 08/13/2013 Inactive clonidine 0.1 mg tablet RxNorm: 944986 1 Tablet(s) PO TID 08/04/2013 11/11/2013 Inactive replaces 0.2mg dose cyclobenzaprine 10 mg tablet RxNorm: 167985 1 Tablet(s) PO TID prn spasm 07/23/2013 08/01/2013 Inactive hydrocodone 10 mg-acetaminophen 325 mg tablet RxNorm: 358139 2 1-2 Tablet(s) PO QID as needed for severe pain 06/09/2013 08/07/2013 Inactive Singulair 10 mg tablet RxNorm: 349096 1 Tablet(s) PO QD 05/29/2013 Inactive Klor-Con 8 mEq tablet,extended release RxNorm: 501093 1 Tablet( s) PO BID 05/29/2013 02/26/2014 Inactive allopurinol 300 mg tablet RxNorm: 585015 1 Tablet(s) PO QD 05/29/20 13 11/19/2013 Inactive Bystolic 10 mg tablet RxNorm: 200503 1 Tablet(s) PO QAM take one daily in the morning. 05/29/2013 11/11/2013 Inactive scopolamine 1.5 mg 72 hr Transderm Patch RxNorm: 989586 Application TD Q72H for motion sickness 05/26/2013 07/22/2013 Inactive Soma 350 mg tablet RxNorm: 199049 1 Tablet(s) PO TID as needed for spasm 05/19/2013 10/13/2013 Inactive diclofenac sodium 75 mg tablet,delayed release RxNorm: 10939 8 1 Tablet(s) PO BID for pain 05/14/2013 07/22/2013 Inactive allopurinol 300 mg tablet RxNorm: 512504 1 Tablet(s) PO QD 04/25/20 13 05/28/2013 Inactive alprazolam 0.5 mg tablet RxNorm: 402936 1 Tablet(s) PO BID May refill on 04/26/13 04/25/2013 06/23/2013 Inactive prn Celebrex 200 mg capsule RxNorm: 111194 1 Capsule(s) PO QD 04/16/2013 12/29/2013 Inactive alprazolam 0.5 mg tablet RxNorm: 505536 1 Tablet(s) PO BID May refill on 04/26/13 04/16/2013 04/24/2013 Inactive prn Soma 350 mg tablet RxNorm: 427184 1 Tablet(s) PO TID as needed for spasm 04/16/2013 No Stop Date Active Lasix 40 mg tablet RxNorm: 535932 1 Tablet(s) PO QAM s hould take potassium supplementation with this medication 04/16/2013 06/14/2013 Inactive clonidine 0.1 mg tablet RxNorm: 180018 1 Tablet(s) PO TID 04/16/2013 08/03/2013 Inactive replaces 0.2mg dose prednisone 20 mg tablet RxNorm: 307424 1 Tablet(s) PO BID 04/16/2013 04/20/2013 Inactive diclofenac sodium 75 mg tablet,delayed release RxNorm: 00020 8 1 Tablet(s) PO BID for pain 04/14/2013 05/13/2013 Inactive hydrocodone 10 mg-acetaminophen 325 mg tablet RxNorm: 897816 2 1-2 Tablet(s) PO QID as needed for severe pain 04/14/2013 No Stop Date Active Lasix 40 mg tablet RxNorm: 849086 1 Tablet(s) PO QAM s hould take potassium supplementation with this medication 03/31/2013 04/15/2013 Inactive Celebrex 200 mg capsule RxNorm: 028687 1 Capsule(s) PO QD 03/31/2013 04/15/2013 Inactive alprazolam 0.5 mg tablet RxNorm: 236527 1 Tablet(s) PO BID 03/28/20 13 04/15/2013 Inactive prn hydrocodone 10 mg-acetaminophen 325 mg tablet RxNorm: 522460 2 1-2 Tablet(s) PO QID as needed for severe pain 03/10/2013 No Stop Date Active metformin ER 500 mg 24 hr tablet,extended release RxNorm: 86 1018 1 Tablet(s) PO QD 03/06/2013 07/22/2013 Inactive clindamycin 300 mg capsule RxNorm: 478608 2 Capsule(s) PO TID 03/0503/14/2013 Inactive Zaroxolyn 2.5 mg tablet RxNorm: 702979 1 Tablet(s) PO QAM 03/05/2013 05/19/2015 Inactive amlodipine 10 mg tablet RxNorm: 138901 1 Tablet(s) PO QD 03/03/2013 0 05/25/2013 Inactive Norvasc 10 mg tablet RxNorm: 454259 1 Tablet(s) PO QD 02/28/201307/11 Inactive Celebrex 200 mg capsule RxNorm: 266252 1 Capsule(s) PO QD 02/28/2013 03/30/2013 Inactive diclofenac sodium 75 mg tablet,delayed release RxNorm: 80001 8 1 Tablet(s) PO BID for pain 02/14/2013 03/15/2013 Inactive Soma 350 mg tablet RxNorm: 529647 1 Tablet(s) PO TID as needed for spasm 02/14/2013 No Stop Date Active hydrocodone 10 mg-acetaminophen 325 mg tablet RxNorm: 825354 2 1-2 Tablet(s) PO QID as needed for severe pain 02/14/2013 No Stop Date Active Norvasc 10 mg tablet RxNorm: 770837 1 Tablet(s) PO QD 02/10/201302/09 Inactive Celebrex 200 mg capsule RxNorm: 908472 1 Capsule(s) PO QD 01/27/2013 01/26/2013 Inactive Premarin 1.25 mg tablet RxNorm: 273970 1-2 Tablet(s) PO QD 01/28/20 13 06/25/2013 Inactive alprazolam 0.5 mg tablet RxNorm: 773606 1 Tablet(s) PO BID 01/28/20 13 02/25/2013 Inactive prn amlodipine 5 mg tablet RxNorm: 227089 1 Tablet(s) PO QD 01/27/2013 Inactive Celebrex 200 mg capsule RxNorm: 192415 1 Capsule(s) PO QD 01/27/2013 02/27/2013 Inactive gabapentin 600 mg tablet RxNorm: 510767 1 Tablet(s) PO QHS 01/16/20 13 07/22/2013 Inactive Soma 350 mg tablet RxNorm: 046619 1 Tablet(s) PO TID as needed for spasm 01/15/2013 No Stop Date Active hydrocodone 10 mg-acetaminophen 325 mg tablet RxNorm: 417206 2 1-2 Tablet(s) PO QID as needed for severe pain 01/15/2013 No Stop Date Active Soma 350 mg tablet RxNorm: 290599 1 Tablet(s) PO TID as needed for spasm 01/13/2013 No Stop Date Active alprazolam 0.5 mg tablet RxNorm: 439858 1 Tablet(s) PO BID 12/31/19 13 01/26/2013 Inactive prn diclofenac sodium 75 mg tablet,delayed release RxNorm: 32347 8 1 Tablet(s) PO BID for pain 12/09/2012 01/07/2013 Inactive gabapentin 600 mg tablet RxNorm: 785694 1 Tablet(s) PO QHS 12/10/19 13 01/07/2013 Inactive hydrocodone 10 mg-acetaminophen 325 mg tablet RxNorm: 723869 2 1-2 Tablet(s) PO QID as needed for severe pain 12/02/2012 No Stop Date Active Levaquin 750 mg tablet RxNorm: 581912 1 Tablet(s) PO QD 11/21/2012 Inactive Singulair 10 mg tablet RxNorm: 500430 1 Tablet(s) PO QD 11/11/2012 Inactive clonidine 0.2 mg tablet RxNorm: 343022 1 Tablet(s) PO TID 11/11/2012 04/15/2013 Inactive alprazolam 0.5 mg tablet RxNorm: 972553 1 Tablet(s) PO BID 11/12/19 13 12/10/2012 Inactive prn Klor-Con 8 mEq tablet,extended release RxNorm: 833214 1 Tablet( s) PO BID 11/11/2012 03/04/2013 Inactive hydrocodone 10 mg-acetaminophen 325 mg tablet RxNorm: 902933 2 1-2 Tablet(s) PO QID as needed for severe pain 11/06/2012 No Stop Date Active alprazolam 0.5 mg tablet RxNorm: 290474 1 Tablet(s) PO BID 10/15/19 13 11/10/2012 Inactive prn hydrocodone-acetaminophen 10 mg-325 mg tablet RxNorm: 425519 2 1-2 Tablet(s) PO QID as needed for severe pain 10/10/2012 10/09/2012 Inactive allopurinol 300 mg tablet RxNorm: 245837 1 Tablet(s) PO QD 09/20/19 13 12/18/2012 Inactive alprazolam 0.5 mg tablet RxNorm: 561894 1 Tablet(s) PO BID 09/17/19 13 10/14/2012 Inactive prn hydrocodone-acetaminophen 10 mg-325 mg tablet RxNorm: 000221 2 1-2 Tablet(s) PO QID as needed for severe pain 08/22/2012 08/21/2012 Inactive Norvasc 10 mg tablet RxNorm: 236201 1 Tablet(s) PO QD 08/12/201201/10 Inactive Premarin 1.25 mg tablet RxNorm: 981976 1-2 Tablet(s) PO QD 07/30/20 12 12/26/2012 Inactive alprazolam 0.5 mg tablet RxNorm: 185326 1 Tablet(s) PO BID 07/29/20 12 08/27/2012 Inactive prn Klor-Con 8 mEq tablet,extended release RxNorm: 232408 1 Tablet( s) PO BID 07/29/2012 11/10/2012 Inactive hydrocodone-acetaminophen 10 mg-325 mg tablet RxNorm: 826565 2 1-2 Tablet(s) PO QID as needed for severe pain 07/29/2012 No Stop Date Active Premarin 1.25 mg tablet RxNorm: 511910 1-2 Tablet(s) PO QD 07/29/20 12 07/29/2012 Inactive clonidine 0.2 mg tablet RxNorm: 191475 1 Tablet(s) PO TID 07/29/2012 10/28/2012 Inactive ketorolac 10 mg tablet RxNorm: 032699 1 Tablet(s) PO QID prn he adache 07/18/2012 No Stop Date Active hydrocodone-acetaminophen 10 mg-325 mg tablet RxNorm: 862920 2 1-2 Tablet(s) PO QID as needed for severe pain 07/03/2012 No Stop Date Active amlodipine 5 mg tablet RxNorm: 692173 1 Tablet(s) PO QD 07/02/2012 Inactive allopurinol 300 mg tablet RxNorm: 131568 1 Tablet(s) PO QD 07/02/2009/19/2012 Inactive Celebrex 200 mg capsule RxNorm: 558362 1 Capsule(s) PO QD for j oint pain 06/26/2012 10/23/2012 Inactive diclofenac sodium 75 mg tablet,delayed release RxNorm: 17818 8 1 Tablet(s) PO BID for pain 06/19/2012 09/16/2012 Inactive hydrocodone-acetaminophen 10 mg-325 mg tablet RxNorm: 787288 2 1-2 Tablet(s) PO QID as needed for severe pain 06/10/2012 No Stop Date Active alprazolam 0.5 mg tablet RxNorm: 288476 1 Tablet(s) PO BID 06/03/20 12 07/02/2012 Inactive prn ketorolac 10 mg tablet RxNorm: 146447 1 Tablet(s) PO Q8H 05/27/2012 0 01/21/2019 Inactive as needed for headache hydrocodone-acetaminophen 10 mg-325 mg tablet RxNorm: 641519 2 1-2 Tablet(s) PO QID as needed for severe pain 05/15/2012 No Stop Date Active allopurinol 300 mg tablet RxNorm: 611508 1 Tablet(s) PO QD 05/14/20 12 06/12/2012 Inactive allopurinol 300 mg tablet RxNorm: 068477 1 Tablet(s) PO QD 05/14/20 12 05/13/2012 Inactive amlodipine 5 mg tablet RxNorm: 263846 1 Tablet(s) PO QD 05/01/2012 Inactive amlodipine 5 mg Tab RxNorm: 884891 1 Tablet(s) PO QD 05/01/201204/30 Inactive Celebrex 200 mg capsule RxNorm: 832052 1 Capsule(s) PO QD for j oint pain 05/01/2012 06/25/2012 Inactive Singulair 10 mg tablet RxNorm: 100296 1 Tablet(s) PO QD 05/01/2012 Inactive alprazolam 0.5 mg tablet RxNorm: 109603 1 Tablet(s) PO BID 05/01/2005/30/2012 Inactive prn Celebrex 200 mg Cap RxNorm: 867874 1 Capsule(s) PO QD for joint radu n 05/01/2012 04/30/2012 Inactive hydrocodone-acetaminophen 10 mg-325 mg tablet RxNorm: 904607 2 1-2 Tablet(s) PO QID as needed for severe pain 04/19/2012 No Stop Date Active Lasix 40 mg tablet RxNorm: 653258 1 Tablet(s) PO RAZA ramirez take potassium supplementation with this medication 04/05/2012 06/03/2012 Inactive alprazolam 0.5 mg Tab RxNorm: 479424 1 Tablet(s) PO BID 04/05/2012 Inactive prn hydrocodone-acetaminophen 10 mg-325 mg Tab RxNorm: 4656381 1-2 Tablet(s) PO QID as needed for severe pain 03/25/2012 03/24/2012 Inactive clonidine 0.2 mg Tab RxNorm: 489850 1 Tablet(s) PO TID 03/08/2012 Inactive alprazolam 0.5 mg Tab RxNorm: 271732 1 Tablet(s) PO BID 03/08/2012 Inactive prn Soma 350 mg tablet RxNorm: 080745 1 Tablet(s) PO TID for spasm 02/0903/18/2012 Inactive clonidine 0.2 mg tablet RxNorm: 369568 1 Tablet(s) PO TID 03/08/2012 07/28/2012 Inactive Celebrex 200 mg Cap RxNorm: 955224 1 Capsule(s) PO QD for joint radu n 03/01/2012 04/29/2012 Inactive amlodipine 5 mg Tab RxNorm: 941739 1 Tablet(s) PO QD 02/26/201202/24 Inactive amlodipine 5 mg Tab RxNorm: 578574 1 Tablet(s) PO QD 02/26/201204/25 Inactive Bactroban 2 % Ointment RxNorm: 272654 Application TOP QID to sores 02/23/2012 No Stop Date Active amlodipine 2.5 mg tablet RxNorm: 558094 1 Tablet(s) PO QHS 02/20/20 12 02/25/2012 Inactive doxycycline hyclate 100 mg Cap RxNorm: 0502127 1 Capsule(s) PO BID 02/20/2012 02/29/2012 Inactive hydrocodone-acetaminophen 10 mg-325 mg Tab RxNorm: 9888672 1-2 T ablet(s) PO QID 02/08/2012 No Stop Date Active alprazolam 0.5 mg Tab RxNorm: 014050 1 Tablet(s) PO BID 02/08/2012 Inactive prn Singulair 10 mg Tab RxNorm: 362134 1 Tablet(s) PO QD 02/08/201204/30 Inactive Soma 350 mg Tab RxNorm: 732557 1 Tablet(s) PO TID for spasm 012 03/07/2012 Inactive Soma 350 mg Tab RxNorm: 465928 1 Tablet(s) PO TID for spasm 012 02/05/2012 Inactive diclofenac sodium 75 mg tablet,delayed release RxNorm: 23769 8 1 Tablet(s) PO BID for pain 02/01/2012 03/18/2012 Inactive Celebrex 200 mg Cap RxNorm: 373747 1 Capsule(s) PO QD for joint radu n 01/30/2012 02/28/2012 Inactive Lasix 40 mg Tab RxNorm: 471590 1 Tablet(s) PO QAM 01/24/2012 03/18/20 12 Inactive potassium chloride ER 20 mEq tablet,extended release(part/cr yst) RxNorm: 729350 2 Tablet(s) PO BID 01/24/2012 02/22/2012 Inactive alprazolam 0.5 mg Tab RxNorm: 547590 1 Tablet(s) PO BID 01/11/2012 Inactive prn hydrocodone-acetaminophen 10 mg-325 mg Tab RxNorm: 7502033 1-2 T ablet(s) PO QID 01/11/2012 No Stop Date Active Ambien 10 mg Tab RxNorm: 166468 1 Tablet(s) PO QHS 01/11/2012 012 Inactive Klor-Con 8 mEq Tab RxNorm: 303712 1 Tablet(s) PO BID 01/11/201201/22 Inactive diclofenac sodium 75 mg Tab, Delayed Release RxNorm: 906423 1 Tablet(s) PO BID for pain 01/10/2012 01/31/2012 Inactive Ambien 10 mg Tab RxNorm: 935728 1 Tablet(s) PO QHS 12/11/2011 012 Inactive alprazolam 0.5 mg Tab RxNorm: 172781 1 Tablet(s) PO BID 12/11/2011 Inactive prn hydrocodone 10 mg-acetaminophen 325 mg tablet RxNorm: 288014 1-2 Tablet(s) PO TID 11/28/2011 No Stop Date Active as needed for pa in - Previous quantity #240, will start dosing for #180 in April 2011 per Doctor Td. Ambien 10 mg Tab RxNorm: 820699 1 Tablet(s) PO QHS 11/09/2011 012 Inactive alprazolam 0.5 mg Tab RxNorm: 449755 1 Tablet(s) PO BID 11/09/2011 Inactive prn hydrocodone-acetaminophen 10 mg-325 mg Tab RxNorm: 7715821 1-2 T ablet(s) PO TID 11/06/2011 No Stop Date Active as needed for pain - Previous quantity #240, will start dosing for #180 in April 2011 per Doctor Td. Singulair 10 mg Tab RxNorm: 950113 1 Tablet(s) PO QD 10/13/201110/12 Inactive Singulair 10 mg Tab RxNorm: 020593 1 Tablet(s) PO QD 10/13/201102/06 Inactive hydrocodone-acetaminophen 10 mg-325 mg Tab RxNorm: 1600335 1-2 T ablet(s) PO TID 10/10/2011 10/09/2011 Inactive as needed for pain - Previous quantity #240, will start dosing for #180 in April 2011 per Doctor Td. hydrocodone-acetaminophen 10 mg-325 mg Tab RxNorm: 7311995 1-2 T ablet(s) PO TID 10/09/2011 No Stop Date Active as needed for pain - Previous quantity #240, will start dosing for #180 in April 2011 per Doctor Td. Klor-Con 8 mEq Tab RxNorm: 522181 1 Tablet(s) PO BID 10/02/201101/09 Inactive triamterene 75 mg-hydrochlorothiazide 50 mg tablet RxNorm: 3 56703 1 Tablet(s) PO QD 09/14/2011 03/06/2013 Inactive Ambien 10 mg Tab RxNorm: 171789 1 Tablet(s) PO QHS 09/14/2011 012 Inactive hydrocodone-acetaminophen 10 mg-325 mg Tab RxNorm: 1971543 1-2 T ablet(s) PO TID 09/14/2011 No Stop Date Active as needed for pain - Previous quantity #240, will start dosing for #180 in April 2011 per Doctor Td. alprazolam 0.5 mg Tab RxNorm: 497374 1 Tablet(s) PO BID 09/14/2011 Inactive prn Zithromax 500 mg Tab RxNorm: 633311 1 Tablet(s) PO QD 09/13/201109/10 Inactive prednisone 20 mg Tab RxNorm: 311541 1 Tablet(s) PO BID 08/31/2011 Inactive Ambien 10 mg Tab RxNorm: 173251 1 Tablet(s) PO QHS 08/17/2011 011 Inactive hydrocodone-acetaminophen 10 mg-325 mg Tab RxNorm: 2560747 1-2 T ablet(s) PO TID 08/17/2011 No Stop Date Active as needed for pain - Previous quantity #240, will start dosing for #180 in April 2011 per Doctor Td. clonidine 0.2 mg Tab RxNorm: 148658 1 Tablet(s) PO TID 08/17/201112/2011 Inactive Ambien 10 mg Tab RxNorm: 973613 1 Tablet(s) PO QHS 08/17/2011 019 Inactive alprazolam 0.5 mg Tab RxNorm: 447261 1 Tablet(s) PO BID 08/17/2011 Inactive prn hydrocodone-acetaminophen 10 mg-325 mg Tab RxNorm: 0559345 1-2 T ablet(s) PO TID 08/17/2011 08/16/2011 Inactive as needed for pain - Previous quantity #240, will start dosing for #180 in April 2011 per Doctor Td. Singulair 10 mg Tab RxNorm: 656622 1 Tablet(s) PO QD 08/17/201108/16 Inactive Klor-Con 8 mEq Tab RxNorm: 252983 1 Tablet(s) PO QD 08/17/20112011 Inactive alprazolam 0.5 mg Tab RxNorm: 895865 1 Tablet(s) PO BID 07/20/2011 Inactive prn Ambien 10 mg Tab RxNorm: 801112 1 Tablet(s) PO QHS 07/20/2011 012 Inactive Singulair 10 mg Tab RxNorm: 637971 1 Tablet(s) PO QD 07/20/201107/19 Inactive Premarin 1.25 mg tablet RxNorm: 988712 2 Tablet(s) PO QD 07/20/2011 0 01/21/2019 Inactive Premarin 1.25 mg tablet RxNorm: 679856 1-2 Tablet(s) PO QD 07/20/20 11 12/16/2011 Inactive Premarin 1.25 mg Tab RxNorm: 773697 1-2 Tablet(s) PO QD 07/06/2011 Inactive alprazolam 0.5 mg Tab RxNorm: 370277 1 Tablet(s) PO BID 06/22/2011 Inactive prn alprazolam 0.5 mg Tab RxNorm: 015597 1 Tablet(s) PO BID 06/22/2011 Inactive prn Premarin 1.25 mg Tab RxNorm: 622823 1 Tablet(s) PO QD m ay do 90 day fill if desired 06/22/2011 07/05/2011 Inactive hydrocodone-acetaminophen 10 mg-325 mg Tab RxNorm: 9372113 1-2 T ablet(s) PO TID 06/22/2011 No Stop Date Active as needed for pain - Previous quantity #240, will start dosing for #180 in April 2011 per Doctor Td. clonidine 0.2 mg Tab RxNorm: 313628 1 Tablet(s) PO TID 05/25/201103/2011 Inactive triamterene-hydrochlorothiazide 75 mg-50 mg Tab RxNorm: 3108 18 1 Tablet(s) PO QD 05/25/2011 09/13/2011 Inactive alprazolam 0.5 mg Tab RxNorm: 797497 1 Tablet(s) PO BID 05/25/2011 Inactive prn hydrocodone-acetaminophen 10 mg-325 mg Tab RxNorm: 2599659 1-2 T ablet(s) PO TID 05/25/2011 No Stop Date Active as needed for pain - Previous quantity #240, will start dosing for #180 in April 2011 per Doctor Td. Robaxin-750 750 mg Tab RxNorm: 640288 2 Tablet(s) PO QHS 05/22/2011 1 Inactive prn spasm hydrocodone-acetaminophen 10 mg-325 mg Tab RxNorm: 2458975 1-2 T ablet(s) PO TID 04/26/2011 No Stop Date Active as needed for pain - Previous quantity #240, will start dosing for #180 in April 2011 per Doctor Td. alprazolam 0.5 mg Tab RxNorm: 930675 1 Tablet(s) PO BID 04/25/2011 Inactive prn Klor-Con 8 mEq Tab RxNorm: 872751 1 Tablet(s) PO QD 03/30/20112010 Inactive Klor-Con 8 mEq Tab RxNorm: 513713 1 Tablet(s) PO QD 03/29/20112010 Inactive hydrocodone-acetaminophen 10 mg-325 mg Tab RxNorm: 9558909 1-2 T ablet(s) PO TID 03/20/2011 04/25/2011 Inactive as needed for pain - Previous quantity #240, will start dosing for #180 in April 2011 per Doctor Td. alprazolam 0.5 mg Tab RxNorm: 057049 1 Tablet(s) PO BID prn 011 03/30/2011 Inactive Ambien 10 mg Tab RxNorm: 214865 1 Tablet(s) PO QHS 03/01/2011 011 Inactive cyclobenzaprine 10 mg Tab RxNorm: 680329 1 Tablet(s) PO TID 011 03/18/2012 Inactive cyclobenzaprine 10 mg Tab RxNorm: 604737 1 Tablet(s) PO TID 011 01/08/2011 Inactive cyclobenzaprine 10 mg Tab RxNorm: 690667 1 Tablet(s) PO TID 011 12/20/2010 Inactive terbinafine 250 mg Tab RxNorm: 182133 1 Tablet(s) PO QD 12/12/2010 Inactive triamterene-hydrochlorothiazide 75 mg-50 mg Tab RxNorm: 3108 18 1 Tablet(s) PO QD 12/07/2010 01/12/2020 Inactive Klor-Con 8 8 mEq Tab RxNorm: 873273 1 Tablet(s) PO QD 12/07/201001/08 Inactive Premarin 1.25 mg Tab RxNorm: 755995 2 Tablet(s) PO QD 12/07/201001/08 Inactive clonidine 0.2 mg Tab RxNorm: 458181 1 Tablet(s) PO TID 12/07/2010 Inactive hydrocodone-acetaminophen 7.5 mg-650 mg Tab RxNorm: 645374 1 Ta blet(s) PO Q4H 12/05/2010 01/21/2019 Inactive hydrocodone-acetaminophen 7.5 mg-650 mg Tab RxNorm: 557679 1 Ta blet(s) PO Q4H 10/26/2010 11/14/2010 Inactive hydrocodone-acetaminophen 7.5 mg-650 mg Tab RxNorm: 990525 1 Ta blet(s) PO Q4H 10/13/2010 10/25/2010 Inactive hydrocodone-acetaminophen 7.5 mg-650 mg Tab RxNorm: 554254 1 Ta blet(s) PO Q4H 09/15/2010 09/12/2010 Inactive alprazolam 0.5 mg Tab RxNorm: 070137 1 Tablet(s) PO BID prn 011 09/12/2010 Inactive terbinafine 250 mg Tab RxNorm: 277059 1 Tablet(s) PO QD 09/05/2010 Inactive hydrocodone-acetaminophen 7.5 mg-650 mg Tab RxNorm: 264468 1 Ta blet(s) PO Q4H 08/29/2010 09/17/2010 Inactive alprazolam 0.5 mg Tab RxNorm: 364994 1 Tablet(s) PO BID prn 010 09/27/2010 Inactive alprazolam 0.5 mg Tab RxNorm: 447330 1 Tablet(s) PO BID prn 010 09/06/2010 Inactive Klor-Con 8 mEq Tab RxNorm: 207122 1 Tablet(s) PO QD 08/08/20102010 Inactive hydrocodone-acetaminophen 7.5 mg-650 mg Tab RxNorm: 550260 1 Ta blet(s) PO Q4H 08/08/2010 08/27/2010 Inactive Ambien 10 mg Tab RxNorm: 008258 1 Tablet(s) PO QHS 08/08/2010 Inactive clonidine 0.2 mg Tab RxNorm: 825907 1 Tablet(s) PO TID 08/08/2010 Inactive Premarin 1.25 mg Tab RxNorm: 837200 2 Tablet(s) PO QD 08/08/201009/12 Inactive Ambien 10 mg Tab RxNorm: 536012 1 Tablet(s) PO QHS 07/18/2010 Inactive alprazolam 0.5 mg Tab RxNorm: 306823 1 Tablet(s) PO BID prn 010 08/07/2010 Inactive hydrocodone-acetaminophen 7.5 mg-650 mg Tab RxNorm: 708182 1 Ta blet(s) PO Q4H 07/12/2010 07/31/2010 Inactive clonidine 0.2 mg Tab RxNorm: 175194 1 Tablet(s) PO TID 06/20/2010 Inactive terbinafine 250 mg Tab RxNorm: 444546 1 Tablet(s) PO QD 05/24/2010 Inactive Clonidine 0.2 mg Tab RxNorm: 658913 1 Tablet(s) PO TID 05/24/201006/2010 Inactive Ambien 10 mg Tab RxNorm: 087849 1 Tablet(s) PO QHS 05/24/2010 010 Inactive alprazolam 0.5 mg Tab RxNorm: 661748 1 Tablet(s) PO BID 05/24/2010 Inactive Klor-Con 8 mEq Tab RxNorm: 473073 1 Tablet(s) PO QD 05/24/20102009 Inactive alprazolam 0.5 mg Tab RxNorm: 224652 2 Tablet(s) PO QD prn 05/24/2007/17/2010 Inactive triamterene-hydrochlorothiazide 75 mg-50 mg Tab RxNorm: 3108 18 1 Tablet(s) PO QD 05/24/2010 11/19/2010 Inactive Ambien 10 mg Tab RxNorm: 987094 1 Tablet(s) PO QHS 05/23/2010 010 Inactive Alprazolam 0.5 mg Tab RxNorm: 298500 2 Tablet(s) PO QD prn 05/23/20 10 05/23/2010 Inactive Premarin 1.25 mg Tab RxNorm: 959385 2 Tablet(s) PO QD 05/19/201007/12 Inactive Hydrocodone-Acetaminophen 7.5 mg-650 mg Tab RxNorm: 608515 1 Ta blet(s) PO Q4H 05/19/2010 03/20/2011 Inactive Prednisone 20 mg Tab RxNorm: 171140 1 Tablet(s) PO BID 05/17/2010 Inactive Prednisone 20 mg Tab RxNorm: 412876 1 Tablet(s) PO BID 05/06/201001/2010 Inactive Premarin 1.25 mg Tab RxNorm: 222666 Tablet(s) PO 2 -W-, and 1 Iq-Ly-Dtn-Sun 05/05/2010 08/02/2010 Inactive Premarin 1.25 mg Tab RxNorm: 559481 Tablet(s) PO 2 M-W-F, and 1 Yh-Lz-Qvd-Sun 05/04/2010 05/04/2010 Inactive Premarin 1.25 mg Tab RxNorm: 443167 Tablet(s) PO 2 M-W-F, and 1 Jl-Vj-Zel-Sun 05/04/2010 05/03/2010 Inactive Prednisone 20 mg Tab RxNorm: 632439 1 Tablet(s) PO BID 04/27/2010 Inactive Alprazolam 0.5 mg Tab RxNorm: 449499 2 Tablet(s) PO QD prn 04/26/20 10 05/22/2010 Inactive Clindamycin 300 mg Cap RxNorm: 381386 2 Capsule(s) PO TID 04/05/2010 04/18/2010 Inactive Terbinafine 250 mg Tab RxNorm: 579381 1 Tablet(s) PO QD 04/04/2010 Inactive Hydrocodone-Acetaminophen 7.5 mg-650 mg Tab RxNorm: 035992 1 Ta blet(s) PO Q4H 03/30/2010 04/18/2010 Inactive Avelox 400 mg Tab RxNorm: 469608 1 Tablet(s) PO QD 03/09/2010 010 Inactive Hydrocodone-Acetaminophen 7.5 mg-650 mg Tab RxNorm: 763821 1 Ta blet(s) PO Q4H 03/08/2010 03/27/2010 Inactive Alprazolam 0.5 mg Tab RxNorm: 176364 2 Tablet(s) PO QD prn 03/08/20 10 04/25/2010 Inactive Klor-Con 8 mEq Tab RxNorm: 505173 1 Tablet(s) PO QD when takes lasi x 03/07/2010 09/29/2019 Inactive Premarin 1.25 mg Tab RxNorm: 321270 1 Tablet(s) PO QD 03/03/201003/11 Inactive Alprazolam 0.5 mg Tab RxNorm: 247648 1 Tablet(s) PO BID PRN 010 No Stop Date Active triamterene-hydrochlorothiazide 75 mg-50 mg Tab RxNorm: 3108 18 1 Tablet(s) PO QD 02/09/2010 02/03/2011 Inactive Hydrocodone-Acetaminophen 10 mg-750 mg Tab RxNorm: 190489 1 Tablet(s) PO Q4H PRN 02/09/2010 03/20/2011 Inactive Clonidine 0.2 mg Tab RxNorm: 262806 1 Tablet(s) PO TID 01/13/201009/2009 Inactive Alprazolam 0.5 mg Tab RxNorm: 741631 1 Tablet(s) PO BID PRN 010 01/12/2010 Inactive Hydrocodone-Acetaminophen 10 mg-750 mg Tab RxNorm: 816577 1 Tablet(s) PO Q4H PRN 01/13/2010 01/12/2010 Inactive ANGELIQ 1 mg-0.5 mg Tab RxNorm: 2434109 1 Tablet(s) PO QD 12/27/2009 01/23/2010 Inactive Lasix 40 mg Tab RxNorm: 485726 1 Tablet(s) PO QAM 12/14/2009 06/11/20 10 Inactive Vitamin B12 1000mcg Tablet RxNorm: 1 Tablet(s) PO QD No Start Date Active cyclobenzaprine 10 mg tablet RxNorm: 434973 1 Tablet(s) PO TID as needed DO NOT USE WITH BACLOFEN No Start Date Active Vitamin D 5,000 unit Tab RxNorm: 1 Tablet(s) PO QD No Start Date Active vitamin E (dl, acetate) 400 unit Cap RxNorm: 513755 1 Capsule(s ) PO QD No Start Date Active Benadryl 25 mg Cap RxNorm: 2558241 Capsule(s) PO PRN No Start Date Inactive amitriptyline 100 mg tablet RxNorm: 183022 1 Tablet(s) PO QHS No St art Date 11/27/2016 Inactive Zithromax Z-Dustin 250 mg tablet RxNorm: 250032 Tablet(s) PO as di rected No Start Date 07/22/2013 Inactive Klor-Con 8 mEq tablet,extended release RxNorm: 682179 1 Tablet( s) PO BID No Start Date 07/28/2012 Inactive scopolamine 1.5 mg 72 hr Transderm Patch RxNorm: 388459 Application TD Q72H for motion sickness No Start Date 05/25/2013 Inactive Klonopin 1 mg tablet RxNorm: 903066 1-2 Tablet(s) PO QHS as nee ded for sleep No Start Date 06/20/2015 Inactive Klor-Con M20 mEq tablet,extended release RxNorm: 886704 2 Tablet(s) PO BID to use with lasix No Start Date 11/11/2013 Inactive Bystolic 5 mg tablet RxNorm: 702286 1 Tablet(s) PO QD No Start Date 1 Inactive Bystolic 10 mg tablet RxNorm: 501060 1 Tablet(s) PO BID No Start Da te 07/06/2015 Inactive Premarin 1.25 mg Tab RxNorm: 783543 Tablet(s) PO 2 -, and 1 -Sun No Start Date 05/03/2010 Inactive baclofen 20 mg tablet RxNorm: 687881 1 Tablet(s) PO TID as needed for muscle spasm No Start Date 07/22/2015 Inactive hydrocodone-acetaminophen 7.5 mg-650 mg Tab RxNorm: 717713 1 Tablet(s) PO Q4H as needed for pain No Start Date 03/20/2011 Inactive albuterol sulfate 1.25 mg/3 mL Neb Solution RxNorm: 686135 1 Unit Dose INH Q4H 2boxes No Start Date 09/06/2015 Inactive Butrans 20 mcg/hour Transderm Patch RxNorm: 415954 1 TD WEEKLY apply to skin weekly after removing previous. No Start Date 07/22/2013 Inactive Medrol (Dustin) 4 mg tablets in a dose pack RxNorm: 066670 Tablet(s) PO As Directed No Start Date 07/30/2016 Inactive hydrocodone-acetaminophen 10 mg-325 mg Tab RxNorm: 7051634 1-2 Tablet(s) PO TID as needed for pain No Start Date 03/19/2011 Inactive Klonopin 1 mg tablet RxNorm: 145090 1 Tablet(s) PO QHS No Start Date 02/28/2016 Inactive honey topical RxNorm: topical No Start Date 06/16/2018 Inactive Clonidine 0.2 mg Tab RxNorm: 005649 1 Tablet(s) PO TID No Start Date 01/12/2010 Inactive ketorolac 10 mg tablet RxNorm: 167056 1 Tablet(s) PO Q8H No Start D ate 03/18/2012 Inactive as needed for headache Singulair 10 mg Tab RxNorm: 091964 1 Tablet(s) PO QD No Start Date Inactive Premarin 1.25 mg Tab RxNorm: 841637 1 Tablet(s) PO QD No Start Date 1 Inactive Flonase 50 mcg/Actuation Nasal Spencer RxNorm: 0579362 1 Spencer CECELIA AL BID No Start Date 03/18/2012 Inactive Terbinafine 250 mg Tab RxNorm: 427367 1 Tablet(s) PO QD No Start Da te 04/03/2010 Inactive Fexofenadine 180 mg Tab RxNorm: 8293396 1 Tablet(s) PO QD No Start Date 09/06/2015 Inactive baclofen 20 mg tablet RxNorm: 601341 1 Tablet(s) PO TID as needed N o Start Date 05/25/2014 Inactive Diovan 160 mg Tab RxNorm: 763300 1 Tablet(s) PO QD No Start Date 09/12 Inactive mupirocin 2 % topical ointment RxNorm: 067688 1 Application TOP QID No Start Date 04/25/2016 Inactive ZOFRAN ODT 4 mg Tab, Rapid Dissolve RxNorm: 502706 1 Tablet(s) PO Q4H No Start Date 03/18/2012 Inactive as needed for nausea and vomiting Alprazolam 0.5 mg Tab RxNorm: 224852 1 Tablet(s) PO BID PRN No Star t Date 01/12/2010 Inactive cyclobenzaprine 10 mg tablet RxNorm: 009607 1 Tablet(s) PO TID as needed for muscle spasm No Start Date 10/08/2017 Inactive Albuterol 0.083% Aerosol Solution RxNorm: 1 Appl ication INH Q4H Use one ampule every 4 hrs with nebulizer as needed for shortness of breath. No Start Date 10/09/2010 Inactive lorazepam 1 mg tablet RxNorm: 348240 1 1/2 Tablet(s) PO QHS No Star t Date 02/02/2016 Inactive Melatonin 3 mg Tab RxNorm: 067443 Tablet(s) PO PRN No Start Date 07/11 Inactive Medrol (Dustin) 4 mg Tabs in a Dose Pack RxNorm: 622435 Tablet(s) PO N o Start Date 11/28/2010 Inactive lorazepam 1 mg tablet RxNorm: 721238 1 Tablet(s) PO QHS as need ed for sleep No Start Date 01/30/2016 Inactive hydrocodone-acetaminophen 10 mg-325 mg Tab RxNorm: 8567188 1-2 Tablet(s) PO QID as needed for severe pain No Start Date 03/24/2012 Inactive celecoxib 200 mg capsule RxNorm: 361903 1 Capsule(s) PO BID No Star t Date 06/26/2019 Inactive amlodipine 5 mg-benazepril 20 mg capsule RxNorm: 858793 1 Capsu le(s) PO QD No Start Date 04/10/2017 Inactive Bystolic 20 mg tablet RxNorm: 540279 1/2 Tablet(s) PO QAM No Start Date 01/23/2016 Inactive Bystolic 20 mg tablet RxNorm: 757643 1 Tablet(s) PO QAM No Start Da te 04/25/2016 Inactive Ambien 10 mg Tab RxNorm: 284547 1 Tablet(s) PO QHS No Start Date 05/11 Inactive Klor-Con 8 mEq Tab RxNorm: 126265 1 Tablet(s) PO QD when takes lasix No Start Date 03/06/2010 Inactive aspirin 81 mg tablet RxNorm: 150562 1 Tablet(s) PO QD No Start Date 0 01/29/2018 Inactive hydrocodone-acetaminophen 10 mg-325 mg Tab RxNorm: 3465522 1-2 T ablet(s) PO QID No Start Date 01/10/2012 Inactive Bystolic 10 mg tablet RxNorm: 829590 1 Tablet(s) PO QAM take one daily in the morning. No Start Date 05/28/2013 Inactive nystatin 100,000 unit/mL Oral Susp RxNorm: 437146 5 Milliliter( s) PO QID No Start Date 03/18/2012 Inactive swish and spit scopolamine 1.5 mg 72 hr Transderm Patch RxNorm: 896696 1 Unit Dose TD Q72H for motion sickness No Start Date 12/23/2013 Inactive Hydrocodone-Acetaminophen 10 mg-750 mg Tab RxNorm: 799062 1 Tablet(s) PO Q4H PRN No Start Date 01/12/2010 Inactive Soma 350 mg tablet RxNorm: 043862 1 Tablet(s) PO TID as needed for spasm No Start Date 01/12/2013 Inactive baclofen 10 mg tablet RxNorm: 391349 1 Tablet(s) PO TID as needed for muscle spasm No Start Date 09/18/2019 Inactive Soma 350 mg Tab RxNorm: 173306 1 Tablet(s) PO TID for spasm No Star t Date 01/31/2012 Inactive Co Q-10 400 mg capsule RxNorm: 913461 1 Capsule(s) PO QD No Start D ate 01/21/2019 Inactive nystatin 100,000 unit/gram topical cream RxNorm: 389543 Applica tion TOP BID No Start Date 03/22/2015 Inactive Exforge 5 mg-160 mg Tab RxNorm: 692171 1 Tablet(s) PO QD No Start D ate 10/09/2010 Inactive Hydrocodone-Acetaminophen 7.5 mg-650 mg Tab RxNorm: 120777 1 Ta blet(s) PO Q4H No Start Date 03/07/2010 Inactive Robaxin-750 750 mg Tab RxNorm: 705962 1-2 Tablet(s) PO TID prn spasm No Start Date 05/21/2011 Inactive amlodipine 5 mg tablet RxNorm: 073780 1 Tablet(s) PO QHS No Start D ate 09/29/2015 Inactive oxycodone-acetaminophen 10 mg-325 mg tablet RxNorm: 6912680 1-2 Tablet(s) PO Q6H No Start Date 06/16/2018 Inactive Triamterene-Hydrochlorothiazide 75 mg-50 mg Tab RxNorm: 3108 18 1 Tablet(s) PO QD No Start Date 02/08/2010 Inactive Alprazolam 0.5 mg Tab RxNorm: 848830 2 Tablet(s) PO QD prn No Start Date 03/07/2010 Inactive Bystolic 20 mg tablet RxNorm: 706270 1 Tablet(s) PO QAM No Start Da te 08/17/2015 Inactive ketorolac 10 mg tablet RxNorm: 289479 1 Tablet(s) PO QID prn he adache No Start Date 07/17/2012 Inactive acyclovir 800 mg Tab RxNorm: 006383 1 Tablet(s) PO BID No Start Date 03/18/2012 Inactive duloxetine 60 mg capsule,delayed release RxNorm: 797107 1 Capsu le(s) PO QD No Start Date 09/29/2015 Inactive Norvasc 5 mg tablet RxNorm: 075564 1 Tablet(s) PO QHS No Start Date 1 10/18/2014 Inactive promethazine 25 mg tablet RxNorm: 090612 1 Tablet(s) PO Q8H use sparingly No Start Date 07/22/2013 Inactive alprazolam 0.5 mg tablet RxNorm: 847133 3 Tablet(s) PO QHS No Start Date 06/06/2015 Inactive Lunesta 3 mg tablet RxNorm: 277371 1 Tablet(s) PO QHS No Start Date 0 09/20/2017 Inactive hydrocodone-acetaminophen 10 mg-325 mg Tab RxNorm: 5809329 1-2 Tablet(s) PO TID as needed for pain No Start Date 12/10/2011 Inactive Coricidin HBP Cough & Cold 4 mg-30 mg Tab RxNorm: 2026390 Tablet (s) PO PRN No Start Date 10/09/2010 Inactive Bactroban 2 % Ointment RxNorm: 597605 Application TOP QID to so res No Start Date 02/22/2012 Inactive Flonase 50 mcg/actuation Nasal Spencer RxNorm: 316734 2 Spencer CECELIA AL QHS No Start Date 03/03/2014 Inactive Medication Administered No Medication Administered data Immunizations Vaccine Codes Date Status Tetanus, Diptheria, Pertussis CVX: 115 02/27/2014 Results Observation Observation Code Item Item Code Result Date S [facility] Location COMPREHENSIVE METABOLIC 47040 AST 15 U/L 2019 Unknown COMPREHENSIVE METABOLIC 82920 ALT 13 U/L 2019 Unknown COMPREHENSIVE METABOLIC 70224 BUN 12 mg/dL 2019 Unknown COMPREHENSIVE METABOLIC 09856 ALBUMIN 3.9 g/dL 2019 Unknown COMPREHENSIVE METABOLIC 45504 CHLORIDE 97 mmol/L 2019 Unknown COMPREHENSIVE METABOLIC 36109 Bili Total 0.4 mg/dL 09/29 Unknown COMPREHENSIVE METABOLIC 04414 ALK PHOS 130 U/L 2019 Unknown COMPREHENSIVE METABOLIC 81285 SODIUM 136 mmol/L 09/29 Unknown COMPREHENSIVE METABOLIC 21498 CREATININE 0.92 mg/dL 09/11 Unknown COMPREHENSIVE METABOLIC 45775 CALCIUM 9.1 mg/dL 2019 Unknown COMPREHENSIVE METABOLIC 04303 POTASSIUM 4.4 mmol/L 09/29 Unknown COMPREHENSIVE METABOLIC 46459 Total Protein 6.2 g/dL Unknown COMPREHENSIVE METABOLIC 47340 Glucose 391 mg/dL 2019 Unknown COMPREHENSIVE METABOLIC 55392 Bicarbonate 30 mmol/L 09/11 Unknown COMPREHENSIVE METABOLIC 09939 AGAP 9 mmol/L 2019 Unknown MEAN GLUC 4281418 Calc Mean Gluc 332 mg/dL 09/29/2019 Unkn own COMPLETE BLOOD COUNT [id number] WBC 7.0 10e9/L 09/29/19 Unknown COMPLETE BLOOD COUNT [id number] RBC 4.69 10e12/L 2019 Unknown COMPLETE BLOOD COUNT 6385876 HEMOGLOBIN 14.6 g/dL 09/29/19 Unknown COMPLETE BLOOD COUNT [id number] HEMATOCRIT 45.2 % 09/29/19 Unknown COMPLETE BLOOD COUNT [id number] MCV 96.4 fL 0 Unknown COMPLETE BLOOD COUNT [id number] MCH 31.1 pg 0 Unknown COMPLETE BLOOD COUNT 8597676 MCHC 32.3 g/dL 0 Unknown COMPLETE BLOOD COUNT [id number] PLATELET COUNT 209 10e9/L Unknown COMPLETE BLOOD COUNT 5139307 Mean Plt Volume 9.8 fL Unknown COMPLETE BLOOD COUNT 9894360 Neut Auto 48.1 % 0 Unknown COMPLETE BLOOD COUNT 6654757 Lymph Auto 36.5 % 09/29/19 Unknown COMPLETE BLOOD COUNT [id number] [place] Auto 8.6 % 0 Unknown COMPLETE BLOOD COUNT 3009047 RDW 13.4 % 0 Unknown COMPLETE BLOOD COUNT 1095080 Eos Auto 6.5 % 0 Unknown COMPLETE BLOOD COUNT 9239828 Baso Auto 0.3 % 0 Unknown COMPLETE BLOOD COUNT [id number] Neutrophil Abs 3.37 10e9/L Unknown COMPLETE BLOOD COUNT [id number] Lymphocyte Abs 2.56 10e9/L Unknown COMPLETE BLOOD COUNT [id number] Monocyte Abs 0.60 10e9/L 09/11 Unknown COMPLETE BLOOD COUNT [id number] Eosinophil Abs 0.46 10e9/L Unknown COMPLETE BLOOD COUNT [id number] RDW-SD 45.9 fL 0 Unknown COMPLETE BLOOD COUNT [id number] Basophil Abs 0.02 10e9/L 09/11 Unknown LIPID GROUP 75832 Cholesterol 248 mg/dL 09/29/2019 Unkno wn LIPID GROUP 74812 Triglyceride 898 mg/dL 09/29/2019 Unkn own LIPID GROUP 15032 HDL CHOLESTEROL 41 mg/dL 09/29/2019 U nknown LIPID GROUP 28411 Chol/HDL Ratio 6.05 ratio 09/29/2019 U nknown LIPID GROUP 53578 NON-HDL Chol 207 mg/dL 09/29/2019 Unkn own LIPID GROUP 13173 LDL Cholesterol N/A Trig >400 020 Unknown GLYCOSYLATED HEMOGLOBIN TEST 98169 Hgb A1c 97897-0 13.2 % 0 09/29/2019 Unknown FREE T4 52533 T4 Free 0.75 ng/dL 09/29/2019 Unknown GFR CALC 5023012 GFR Non Afr Amr >60 mL/min 09/29/2019 Un known GFR CALC 2761142 GFR Afr Amr >60 mL/min 09/29/2019 Unknow n THYROID STIMULATING HORMONE 71810 TSH 4.245 uIU/mL 09/29/2019 Unknown COMPLETE BLOOD COUNT 0148233 WBC 10.7 10e9/L 018 Unknown COMPLETE BLOOD COUNT [id number] RBC 4.59 10e12/L 2017 Unknown COMPLETE BLOOD COUNT [id number] HEMOGLOBIN 14.8 g/dL 12/11/19 18 Unknown COMPLETE BLOOD COUNT 4204172 HEMATOCRIT 44.9 % 12/11/19 18 Unknown COMPLETE BLOOD COUNT 1937872 MCV 97.8 fL 8 Unknown COMPLETE BLOOD COUNT 9300621 MCH 32.2 pg 8 Unknown COMPLETE BLOOD COUNT 8553413 MCHC 33.0 g/dL 8 Unknown COMPLETE BLOOD COUNT [id number] PLATELET COUNT 261 10e9/L 10/2017 Unknown COMPLETE BLOOD COUNT 7690568 Mean Plt Volume 9.5 fL 10/2017 Unknown COMPLETE BLOOD COUNT 7835452 Neut Auto 59.9 % 8 Unknown COMPLETE BLOOD COUNT [id number] Lymph Auto 27.4 % 12/11/19 18 Unknown COMPLETE BLOOD COUNT 2998072 [place] Auto 8.2 % 8 Unknown COMPLETE BLOOD COUNT 0948129 RDW 13.3 % 8 Unknown COMPLETE BLOOD COUNT 0099407 Eos Auto 4.1 % 8 Unknown COMPLETE BLOOD COUNT 9704471 Baso Auto 0.4 % 8 Unknown COMPLETE BLOOD COUNT 0305854 Neutrophil Abs 6.41 10e9/L Unknown COMPLETE BLOOD COUNT 5004127 Lymphocyte Abs 2.93 10e9/L Unknown COMPLETE BLOOD COUNT [id number] Monocyte Abs 0.88 10e9/L 10/2017 Unknown COMPLETE BLOOD COUNT 7598236 Eosinophil Abs 0.44 10e9/L Unknown COMPLETE BLOOD COUNT [id number] RDW-SD 46.2 fL 8 Unknown COMPLETE BLOOD COUNT [id number] Basophil Abs 0.04 10e9/L 10/2017 Unknown THYROID STIMULATING HORMONE 08000 TSH 4.015 uIU/mL 12/10/2017 Unknown COMPREHENSIVE METABOLIC 66525 AST 25 U/L 2017 Unknown COMPREHENSIVE METABOLIC 68825 ALT 17 U/L 2017 Unknown COMPREHENSIVE METABOLIC 62853 BUN 19 mg/dL 2017 Unknown COMPREHENSIVE METABOLIC 46076 ALBUMIN 4.0 g/dL 2017 Unknown COMPREHENSIVE METABOLIC 73583 CHLORIDE 91 mmol/L 2017 Unknown COMPREHENSIVE METABOLIC 38189 Bili Total 0.5 mg/dL 12/10 Unknown COMPREHENSIVE METABOLIC 44556 ALK PHOS 75 U/L 2017 Unknown COMPREHENSIVE METABOLIC 18281 SODIUM 136 mmol/L 12/10 Unknown COMPREHENSIVE METABOLIC 04261 CREATININE 1.05 mg/dL 10/2017 Unknown COMPREHENSIVE METABOLIC 34099 CALCIUM 8.9 mg/dL 2017 Unknown COMPREHENSIVE METABOLIC 47039 POTASSIUM 3.4 mmol/L 12/10 Unknown COMPREHENSIVE METABOLIC 35077 Total Protein 6.5 g/dL Unknown COMPREHENSIVE METABOLIC 32618 Glucose 138 mg/dL 2017 Unknown COMPREHENSIVE METABOLIC 51838 Bicarbonate 35 mmol/L 10/2017 Unknown COMPREHENSIVE METABOLIC 47996 AGAP 10 mmol/L 2017 Unknown MEAN GLUC 0829182 Calc Mean Gluc 171 mg/dL 12/10/2017 Unkn own LIPID GROUP 76744 Cholesterol 204 mg/dL 12/10/2017 Unkno wn LIPID GROUP 86990 Triglyceride 411 mg/dL 12/10/2017 Unkn own LIPID GROUP 57358 HDL CHOLESTEROL 50 mg/dL 12/10/2017 U nknown LIPID GROUP 07457 Chol/HDL Ratio 4.08 ratio 12/10/2017 U nknown LIPID GROUP 23434 NON-HDL Chol 154 mg/dL 12/10/2017 Unkn own LIPID GROUP 25904 LDL Cholesterol N/A Trig >400 018 Unknown GLYCOSYLATED HEMOGLOBIN TEST 37304 Hgb A1c 76855-3 7.6 % 0 12/10/2017 Unknown FREE T4 93198 T4 Free 1.40 ng/dL 12/10/2017 Unknown GFR CALC 2883220 GFR Non Afr Amr 55 mL/min 12/10/2017 Unk nown GFR CALC 2540271 GFR Afr Amr >60 mL/min 12/10/2017 Unknow n GFR CALC 9030401 GFR Non Afr Amr 48 mL/min 06/28/2017 Unk nown GFR CALC 7716049 GFR Afr Amr 59 mL/min 06/28/2017 Unknown COMPREHENSIVE METABOLIC 92267 AST 32 U/L 2016 Unknown COMPREHENSIVE METABOLIC 54649 ALT 22 U/L 2016 Unknown COMPREHENSIVE METABOLIC 48756 BUN 23 mg/dL 2016 Unknown COMPREHENSIVE METABOLIC 49234 ALBUMIN 4.7 g/dL 2016 Unknown COMPREHENSIVE METABOLIC 51238 CHLORIDE 89 mmol/L 2016 Unknown COMPREHENSIVE METABOLIC 37935 Bili Total 0.5 mg/dL 06/28 Unknown COMPREHENSIVE METABOLIC 47692 ALK PHOS 90 U/L 2016 Unknown COMPREHENSIVE METABOLIC 26259 SODIUM 135 mmol/L 06/28 Unknown COMPREHENSIVE METABOLIC 74280 CREATININE 1.18 mg/dL 06/10 Unknown COMPREHENSIVE METABOLIC 40993 CALCIUM 9.7 mg/dL 2016 Unknown COMPREHENSIVE METABOLIC 27356 POTASSIUM 3.5 mmol/L 06/28 Unknown COMPREHENSIVE METABOLIC 52520 Total Protein 7.7 g/dL Unknown COMPREHENSIVE METABOLIC 42459 Glucose 129 mg/dL 2016 Unknown COMPREHENSIVE METABOLIC 94485 Bicarbonate 34 mmol/L 06/10 Unknown COMPREHENSIVE METABOLIC 63074 AGAP 12 mmol/L 2016 Unknown LIPID GROUP 82573 HDL TEST 64 MG/DL 08/27/2014 Unknown LIPID GROUP 86340 TRIG 222 MG/DL 08/27/2014 Unknown LIPID GROUP 21739 TEST LDL 209 MG/DL 08/27/2014 Unknown LIPID GROUP 91658 CHOL 317 MG/DL 08/27/2014 Unknown LIPID GROUP 43917 RCHOL/HDL 4.95 RATIO 08/27/2014 Unknow n LIPID GROUP 28321 NON-HDL CH 253 MG/DL 08/27/2014 Unknow n GFR CALC 2503851 GFR AA >60 ML/MIN 08/27/2014 Unknown GFR CALC 7898688 GFR NON-AA >60 ML/MIN 08/27/2014 Unknown COMPLETE BLOOD COUNT 9665389 WBC 7.0 10e9/L 08/27/20 14 Unknown COMPLETE BLOOD COUNT [id number] RBC 4.98 10e12/L 2013 Unknown COMPLETE BLOOD COUNT 3570686 HGB 15.6 g/dL 4 Unknown COMPLETE BLOOD COUNT 8762509 HCT DET 46.5 % 4 Unknown COMPLETE BLOOD COUNT 5098002 MCV 93.4 fL 4 Unknown COMPLETE BLOOD COUNT 2347073 MCH 31.3 pg 4 Unknown COMPLETE BLOOD COUNT 0726733 MCHC 33.5 g/dL 4 Unknown COMPLETE BLOOD COUNT 9850824 PLT 309 10e9/L 08/27/20 14 Unknown COMPLETE BLOOD COUNT 9730136 MPV 9.6 fL 4 Unknown COMPLETE BLOOD COUNT 5010191 CADEN % 57.2 % 4 Unknown COMPLETE BLOOD COUNT 2473428 LY % 33.2 % 4 Unknown COMPLETE BLOOD COUNT 6510180 MON % 7.3 % 4 Unknown COMPLETE BLOOD COUNT 4332867 EOS % 2.0 % 4 Unknown COMPLETE BLOOD COUNT 2302425 BASO % 0.3 % 4 Unknown COMPLETE BLOOD COUNT 6752845 RDW 13.7 % 4 Unknown COMPLETE BLOOD COUNT 6478491 ABS CADEN 4.00 10e9/L 014 Unknown COMPLETE BLOOD COUNT [id number] ABS LYMPH 2.32 10e9/L 014 Unknown COMPLETE BLOOD COUNT 4588894 ABS MONO 0.51 10e9/L 014 Unknown COMPLETE BLOOD COUNT 1095126 ABS EOS 0.14 10e9/L 014 Unknown COMPLETE BLOOD COUNT 7334493 ABS BASO 0.02 10e9/L 014 Unknown COMPLETE BLOOD COUNT 7154530 RDW-SD 45.1 fL 4 Unknown COMPREHENSIVE METABOLIC 96647 AST 13 U/L 2013 Unknown COMPREHENSIVE METABOLIC 54449 ALT 11 IU/L 2013 Unknown COMPREHENSIVE METABOLIC 41848 BUN 23 MG/DL 2013 Unknown COMPREHENSIVE METABOLIC 77485 ALBUMIN 4.4 GM/DL 2013 Unknown COMPREHENSIVE METABOLIC 89308 CHLORIDE 99 MMOL/L 2013 Unknown COMPREHENSIVE METABOLIC 35322 BILI TOT 0.5 MG/DL 2013 Unknown COMPREHENSIVE METABOLIC 86930 ALK PHOS 56 U/L 2013 Unknown COMPREHENSIVE METABOLIC 78459 SODIUM 138 MMOL/L 08/27 Unknown COMPREHENSIVE METABOLIC 44929 CREATININE 0.95 MG/DL 08/10 Unknown COMPREHENSIVE METABOLIC 95225 CALCIUM 9.8 MG/DL 2013 Unknown COMPREHENSIVE METABOLIC 94751 POTASSIUM 3.5 MMOL/L 08/27 Unknown COMPREHENSIVE METABOLIC 03856 PROT TOT 6.8 GM/DL 2013 Unknown COMPREHENSIVE METABOLIC 15089 Glucose 90 MG/DL 2013 Unknown COMPREHENSIVE METABOLIC 88787 BICARB 34 MMOL/L 2013 Unknown COMPREHENSIVE METABOLIC 86507 ANION GAP 5 MEQ/L 2013 Unknown LIPASE 97770 LIPASE 11 IU/L 07/21/2014 Unknown AMYLASE 79376 AMYLASE 39 IU/L 07/21/2014 Unknown HEMOGLOBIN A1C (GLYCOSYLATED) 6921858 A1C [facility] 44247-1 6.2 % 03/05/2013 Unknown THYROID STIMULATING HORMONE 13003 TSH 6.986 uIU/ML 03/05/2013 Unknown COMPLETE BLOOD COUNT 1226240 WBC 12.7 10e9/L 013 Unknown COMPLETE BLOOD COUNT [id number] RBC 4.53 10e12/L 2012 Unknown COMPLETE BLOOD COUNT 5940658 HGB 14.7 g/dL 3 Unknown COMPLETE BLOOD COUNT 6463909 HCT DET 43.1 % 3 Unknown COMPLETE BLOOD COUNT 5838119 MCV 95.1 fL 3 Unknown COMPLETE BLOOD COUNT 4037598 MCH 32.5 pg 3 Unknown COMPLETE BLOOD COUNT 9727502 MCHC 34.1 g/dL 3 Unknown COMPLETE BLOOD COUNT 9088241 PLT 346 10e9/L 03/05/20 13 Unknown COMPLETE BLOOD COUNT 3799424 MPV 9.5 fL 3 Unknown COMPLETE BLOOD COUNT 9464769 CADEN % 67.6 % 3 Unknown COMPLETE BLOOD COUNT 5613002 LY % 22.1 % 3 Unknown COMPLETE BLOOD COUNT 9118382 MON % 6.6 % 3 Unknown COMPLETE BLOOD COUNT 7794584 EOS % 3.3 % 3 Unknown COMPLETE BLOOD COUNT 3642516 BASO % 0.4 % 3 Unknown COMPLETE BLOOD COUNT 0245662 RDW 14.0 % 3 Unknown COMPLETE BLOOD COUNT 4395372 ABS CADEN 8.59 10e9/L 013 Unknown COMPLETE BLOOD COUNT 8622612 ABS LYMPH 2.81 10e9/L 013 Unknown COMPLETE BLOOD COUNT [id number] ABS MONO 0.84 10e9/L 013 Unknown COMPLETE BLOOD COUNT 1415206 ABS EOS 0.42 10e9/L 013 Unknown COMPLETE BLOOD COUNT 0594817 ABS BASO 0.05 10e9/L 013 Unknown COMPLETE BLOOD COUNT 1538358 RDW-SD 46.0 fL 3 Unknown FREE T4 24378 FREE T4 1.14 NG/DL 03/05/2013 Unknown COMPREHENSIVE METABOLIC 07291 AST 17 U/L 2012 Unknown COMPREHENSIVE METABOLIC 07655 ALT 12 IU/L 2012 Unknown COMPREHENSIVE METABOLIC 67587 BUN 24 MG/DL 2012 Unknown COMPREHENSIVE METABOLIC 87711 ALBUMIN 4.2 GM/DL 2012 Unknown COMPREHENSIVE METABOLIC 16334 CHLORIDE 93 MMOL/L 2012 Unknown COMPREHENSIVE METABOLIC 99459 BILI TOT 0.5 MG/DL 2012 Unknown COMPREHENSIVE METABOLIC 94634 ALK PHOS 75 U/L 2012 Unknown COMPREHENSIVE METABOLIC 45127 SODIUM 141 MMOL/L 03/05 Unknown COMPREHENSIVE METABOLIC 72901 CREATININE 1.36 MG/DL 02/09 Unknown COMPREHENSIVE METABOLIC 08182 CALCIUM 9.2 MG/DL 2012 Unknown COMPREHENSIVE METABOLIC 09244 POTASSIUM 3.1 MMOL/L 03/05 Unknown COMPREHENSIVE METABOLIC 38414 PROT TOT 6.9 GM/DL 2012 Unknown COMPREHENSIVE METABOLIC 46794 Glucose 123 MG/DL 2012 Unknown COMPREHENSIVE METABOLIC 58468 BICARB 36 MMOL/L 2012 Unknown COMPREHENSIVE METABOLIC 99261 ANION GAP 12 MEQ/L 2012 Unknown GFR CALC 2458925 GFR AA 51.0L ML/MIN 03/05/2013 Unknow n GFR CALC 5925070 GFR NON-AA 42.0L ML/MIN 03/05/2013 Unkno wn COMPREHENSIVE METABOLIC 59169 AST 14 U/L 2012 Unknown COMPREHENSIVE METABOLIC 91862 ALT 11 IU/L 2012 Unknown COMPREHENSIVE METABOLIC 42536 BUN 16 MG/DL 2012 Unknown COMPREHENSIVE METABOLIC 16871 ALBUMIN 4.2 GM/DL 2012 Unknown COMPREHENSIVE METABOLIC 44808 CHLORIDE 98 MMOL/L 2012 Unknown COMPREHENSIVE METABOLIC 22605 BILI TOT 0.4 MG/DL 2012 Unknown COMPREHENSIVE METABOLIC 59408 ALK PHOS 77 U/L 2012 Unknown COMPREHENSIVE METABOLIC 39777 SODIUM 139 MMOL/L 09/25 Unknown COMPREHENSIVE METABOLIC 50686 CREATININE 0.86 MG/DL 09/10 Unknown COMPREHENSIVE METABOLIC 93082 CALCIUM 9.5 MG/DL 2012 Unknown COMPREHENSIVE METABOLIC 07541 POTASSIUM 3.8 MMOL/L 09/25 Unknown COMPREHENSIVE METABOLIC 18319 PROT TOT 6.8 GM/DL 2012 Unknown COMPREHENSIVE METABOLIC 35062 Glucose 91 MG/DL 2012 Unknown COMPREHENSIVE METABOLIC 38836 BICARB 32 MMOL/L 2012 Unknown COMPREHENSIVE METABOLIC 60358 ANION GAP 9 MEQ/L 2012 Unknown FREE T4 58579 FREE T4 0.98 NG/DL 09/25/2012 Unknown THYROID STIMULATING HORMONE 61099 TSH 1.736 uIU/ML 09/25/2012 Unknown C-REACTIVE PROTEIN (CRP) QUANT 29291 CRP 2.3 MG/DL 09/25/2012 Unknown COMPLETE BLOOD COUNT [id number] WBC 11.9 10e9/L 013 Unknown COMPLETE BLOOD COUNT [id number] RBC 4.87 10e12/L 2012 Unknown COMPLETE BLOOD COUNT 0514727 HGB 15.1 g/dL 3 Unknown COMPLETE BLOOD COUNT 2801676 HCT DET 44.8 % 3 Unknown COMPLETE BLOOD COUNT 4623566 MCV 92.0 fL 3 Unknown COMPLETE BLOOD COUNT 6144809 MCH 31.0 pg 3 Unknown COMPLETE BLOOD COUNT 9427536 MCHC 33.7 g/dL 3 Unknown COMPLETE BLOOD COUNT 1084758 PLT 343 10e9/L 09/25/19 13 Unknown COMPLETE BLOOD COUNT 2244644 MPV 9.0 fL 3 Unknown COMPLETE BLOOD COUNT 2755241 CADEN % 68.2 % 3 Unknown COMPLETE BLOOD COUNT 3506792 LY % 22.4 % 3 Unknown COMPLETE BLOOD COUNT 7228296 MON % 6.4 % 3 Unknown COMPLETE BLOOD COUNT 2353562 EOS % 2.7 % 3 Unknown COMPLETE BLOOD COUNT 3335003 BASO % 0.3 % 3 Unknown COMPLETE BLOOD COUNT 8355135 RDW 13.8 % 3 Unknown COMPLETE BLOOD COUNT 3952308 ABS CADEN 8.12 10e9/L 013 Unknown COMPLETE BLOOD COUNT [id number] ABS LYMPH 2.67 10e9/L 013 Unknown COMPLETE BLOOD COUNT [id number] ABS MONO 0.76 10e9/L 013 Unknown COMPLETE BLOOD COUNT 0390032 ABS EOS 0.32 10e9/L 013 Unknown COMPLETE BLOOD COUNT 3019248 ABS BASO 0.04 10e9/L 013 Unknown COMPLETE BLOOD COUNT 9260199 RDW-SD 45.6 fL 3 Unknown GFR CALC 5663780 GFR AA >60 ML/MIN 09/25/2012 Unknown GFR CALC 3219241 GFR NON-AA >60 ML/MIN 09/25/2012 Unknown ERYTHROCYTE SEDIMENTATION RATE 59289 ESR 19 MM/HR 05/06/2012 Unknown VITAMIN B 12 FOLIC ACID 76855|66030 VIT B 12 922 PG/ML 04/11 Unknown VITAMIN B 12 FOLIC ACID 44598|52227 FOLIC ACID 13.6 NG/ML Unknown URIC ACID 94787 URIC ACID 7.8 MG/DL 05/06/2012 Unknown COMPLETE BLOOD COUNT 23755 WBC 11.9 10e9/L 012 Unknown COMPLETE BLOOD COUNT 91918 RBC 5.30 10e12/L 2011 Unknown COMPLETE BLOOD COUNT 62212 HGB 16.6 g/dL 2 Unknown COMPLETE BLOOD COUNT 12486 HCT DET 47.2 % 2 Unknown COMPLETE BLOOD COUNT 52842 MCV 89.1 fL 2 Unknown COMPLETE BLOOD COUNT 29995 MCH 31.3 pg 2 Unknown COMPLETE BLOOD COUNT 64521 MCHC 35.2 g/dL 2 Unknown COMPLETE BLOOD COUNT 14990 PLT 362 10e9/L 05/06/20 12 Unknown COMPLETE BLOOD COUNT 68178 MPV 9.4 fL 2 Unknown COMPLETE BLOOD COUNT 14319 CADEN % 68.2 % 2 Unknown COMPLETE BLOOD COUNT 11694 LY % 22.0 % 2 Unknown COMPLETE BLOOD COUNT 41115 MON % 6.9 % 2 Unknown COMPLETE BLOOD COUNT 38554 EOS % 2.6 % 2 Unknown COMPLETE BLOOD COUNT 34965 BASO % 0.3 % 2 Unknown COMPLETE BLOOD COUNT 58288 RDW 12.8 % 2 Unknown COMPLETE BLOOD COUNT 50184 ABS CADEN 8.12 10e9/L 012 Unknown COMPLETE BLOOD COUNT 78311 ABS LYMPH 2.62 10e9/L 012 Unknown COMPLETE BLOOD COUNT 74333 ABS MONO 0.82 10e9/L 012 Unknown COMPLETE BLOOD COUNT 77347 ABS EOS 0.31 10e9/L 012 Unknown COMPLETE BLOOD COUNT 78518 ABS BASO 0.04 10e9/L 012 Unknown COMPLETE BLOOD COUNT 67883 RDW-SD 41.5 fL 2 Unknown GFR CALC [id number] GFR AA >60 ML/MIN 05/06/2012 Unknown GFR CALC [id number] GFR NON-AA 58.0L ML/MIN 05/06/2012 Unkno wn FREE T4 54959 FREE T4 1.15 NG/DL 05/06/2012 Unknown THYROID STIMULATING HORMONE 95296 TSH 1.568 uIU/ML 05/06/2012 Unknown COMPREHENSIVE METABOLIC 14427 AST 20 U/L 2011 Unknown COMPREHENSIVE METABOLIC 53827 ALT 12 IU/L 2011 Unknown COMPREHENSIVE METABOLIC 99027 BUN 20 MG/DL 2011 Unknown COMPREHENSIVE METABOLIC 16534 ALBUMIN 4.5 GM/DL 2011 Unknown COMPREHENSIVE METABOLIC 14200 CHLORIDE 91 MMOL/L 2011 Unknown COMPREHENSIVE METABOLIC 83401 BILI TOT 0.4 MG/DL 2011 Unknown COMPREHENSIVE METABOLIC 11402 ALK PHOS 73 U/L 2011 Unknown COMPREHENSIVE METABOLIC 99661 SODIUM 139 MMOL/L 05/06 Unknown COMPREHENSIVE METABOLIC 91870 CREATININE 1.02 MG/DL 04/11 Unknown COMPREHENSIVE METABOLIC 34669 CALCIUM 9.7 MG/DL 2011 Unknown COMPREHENSIVE METABOLIC 81127 POTASSIUM 3.1 MMOL/L 05/06 Unknown COMPREHENSIVE METABOLIC 92138 PROT TOT 7.3 GM/DL 2011 Unknown COMPREHENSIVE METABOLIC 96379 Glucose 118 MG/DL 2011 Unknown COMPREHENSIVE METABOLIC 14311 BICARB 33 MMOL/L 2011 Unknown COMPREHENSIVE METABOLIC 87487 ANION GAP 15 MEQ/L 2011 Unknown Procedures Procedure Codes Date ROUTINE VENIPUNCTURE CPT-4: 95314 09/29/2019 URINALYSIS NONAUTO W/O SCOPE CPT-4: 35378 09/29/2019 COMPREHEN METABOLIC PANEL CPT-4: 85460 09/29/2019 LIPID PANEL CPT-4: 20871 09/29/2019 A1C HPLC CPT-4: 20145 09/29/2019 ASSAY OF FREE THYROXINE CPT-4: 01828 09/29/2019 ASSAY THYROID STIM HORMONE CPT-4: 15601 09/29/2019 COMPLETE CBC W/AUTO DIFF WBC CPT-4: 07744 09/29/2019 URINALYSIS NONAUTO W/O SCOPE CPT-4: 45927 09/30/2018 MICROALBUMIN QUANTITATIVE CPT-4: 89663 09/30/2018 CEFTRIAXONE SODIUM INJECTION CPT-4: J0696 06/19/2018 THER/PROPH/DIAG INJ SC/IM CPT-4: 43494 06/19/2018 CEFTRIAXONE SODIUM INJECTION CPT-4: J0696 06/17/2018 THER/PROPH/DIAG INJ SC/IM CPT-4: 33657 06/17/2018 THER/PROPH/DIAG INJ SC/IM CPT-4: 53940 05/16/2018 KETOROLAC TROMETHAMINE INJ CPT-4: J1885 05/16/2018 ONDANSETRON HCL INJECTION CPT-4: J2405 05/16/2018 THER/PROPH/DIAG INJ SC/IM CPT-4: 34965 05/16/2018 ROUTINE VENIPUNCTURE CPT-4: 26960 03/20/2018 COMPREHEN METABOLIC PANEL CPT-4: 33761 03/20/2018 DEXAMETHASONE SODIUM PHOS CPT-4: J1100 02/11/2018 THER/PROPH/DIAG INJ SC/IM CPT-4: 42764 02/11/2018 TRIAMCINOLONE ACET INJ NOS CPT-4: J3301 02/11/2018 CEFTRIAXONE SODIUM INJECTION CPT-4: J0696 02/01/2018 THER/PROPH/DIAG INJ SC/IM CPT-4: 13040 02/01/2018 CEFTRIAXONE SODIUM INJECTION CPT-4: J0696 01/30/2018 THER/PROPH/DIAG INJ SC/IM CPT-4: 13879 01/30/2018 ROUTINE VENIPUNCTURE CPT-4: 91368 12/10/2017 ASSAY OF FREE THYROXINE CPT-4: 35818 12/10/2017 ASSAY THYROID STIM HORMONE CPT-4: 37933 12/10/2017 COMPREHEN METABOLIC PANEL CPT-4: 61161 12/10/2017 COMPLETE CBC W/AUTO DIFF WBC CPT-4: 75638 12/10/2017 LIPID PANEL CPT-4: 97634 12/10/2017 A1C HPLC CPT-4: 02123 12/10/2017 CEFTRIAXONE SODIUM INJECTION CPT-4: J0696 12/10/2017 THER/PROPH/DIAG INJ SC/IM CPT-4: 50201 12/10/2017 CEFTRIAXONE SODIUM INJECTION CPT-4: J0696 12/07/2017 THER/PROPH/DIAG INJ SC/IM CPT-4: 28591 12/07/2017 DEXAMETHASONE SODIUM PHOS CPT-4: J1100 12/07/2017 THER/PROPH/DIAG INJ SC/IM CPT-4: 24645 12/07/2017 CEFTRIAXONE SODIUM INJECTION CPT-4: J0696 10/08/2017 THER/PROPH/DIAG INJ SC/IM CPT-4: 12394 10/08/2017 CEFTRIAXONE SODIUM INJECTION CPT-4: J0696 09/21/2017 THER/PROPH/DIAG INJ SC/IM CPT-4: 34126 09/21/2017 CEFTRIAXONE SODIUM INJECTION CPT-4: J0696 09/20/2017 THER/PROPH/DIAG INJ SC/IM CPT-4: 85979 09/20/2017 REMOVAL OF NAIL PLATE CPT-4: 82102 08/29/2017 THER/PROPH/DIAG INJ SC/IM CPT-4: 77869 08/29/2017 TRIAMCINOLONE ACET INJ NOS CPT-4: J3301 08/29/2017 CEFTRIAXONE SODIUM INJECTION CPT-4: J0696 08/29/2017 THER/PROPH/DIAG INJ SC/IM CPT-4: 28191 08/29/2017 DESTRUCT PREMALG LESION (Cryosurgery) CPT-4: 76406 ROUTINE VENIPUNCTURE CPT-4: 50834 06/27/2017 ASSAY OF FREE THYROXINE CPT-4: 02542 06/27/2017 ASSAY THYROID STIM HORMONE CPT-4: 74354 06/27/2017 COMPREHEN METABOLIC PANEL CPT-4: 78333 06/27/2017 COMPLETE CBC W/AUTO DIFF WBC CPT-4: 59355 06/27/2017 EXC TR-EXT B9+REECE 0.5 CM< CPT-4: 25415 01/24/2017 THER/PROPH/DIAG INJ SC/IM CPT-4: 63029 08/02/2016 DEXAMETHASONE SODIUM PHOS CPT-4: J1100 08/02/2016 DESTRUCT PREMALG LESION (Cryosurgery) CPT-4: 77364 EXC TR-EXT B9+REECE 0.5 CM< CPT-4: 32476 08/01/2016 AEROBIC WOUND CULTURE & STN CPT-4: 49199 07/06/2016 CEFTRIAXONE SODIUM INJECTION CPT-4: J0696 05/25/2016 THER/PROPH/DIAG INJ SC/IM CPT-4: 29808 05/25/2016 THER/PROPH/DIAG INJ SC/IM CPT-4: 02107 04/26/2016 DEXAMETHASONE SODIUM PHOS CPT-4: J1100 04/26/2016 CEFTRIAXONE SODIUM INJECTION CPT-4: J0696 04/26/2016 THER/PROPH/DIAG INJ SC/IM CPT-4: 08487 04/26/2016 THER/PROPH/DIAG INJ SC/IM CPT-4: 69746 02/09/2016 TRIAMCINOLONE ACET INJ NOS CPT-4: J3301 02/09/2016 URINALYSIS NONAUTO W/O SCOPE CPT-4: 57477 01/24/2016 URINE CULTURE/ COLONY COUNT CPT-4: 37998 01/24/2016 THER/PROPH/DIAG INJ SC/IM CPT-4: 78159 12/08/2015 TRIAMCINOLONE ACET INJ NOS CPT-4: J3301 12/08/2015 THER/PROPH/DIAG INJ SC/IM CPT-4: 82432 10/07/2015 TRIAMCINOLONE ACET INJ NOS CPT-4: J3301 10/07/2015 DESTRUCT PREMALG LESION (Cryosurgery) CPT-4: 92211 THER/PROPH/DIAG INJ SC/IM CPT-4: 76255 03/16/2015 METHYLPREDNISOLONE 40 MG INJ CPT-4: J1030 03/16/2015 DESTRUCT PREMALG LESION (Cryosurgery) CPT-4: 48020 THER/PROPH/DIAG INJ SC/IM CPT-4: 35948 09/11/2014 METHYLPREDNISOLONE 40 MG INJ CPT-4: J1030 09/11/2014 TRIAMCINOLONE ACET INJ NOS CPT-4: J3301 09/11/2014 CEFTRIAXONE SODIUM INJECTION CPT-4: J0696 09/11/2014 THER/PROPH/DIAG INJ SC/IM CPT-4: 98474 09/11/2014 ROUTINE VENIPUNCTURE CPT-4: 95913 08/27/2014 COMPREHEN METABOLIC PANEL CPT-4: 47699 08/27/2014 COMPLETE CBC W/AUTO DIFF WBC CPT-4: 78365 08/27/2014 LIPID PANEL CPT-4: 63293 08/27/2014 ROUTINE VENIPUNCTURE CPT-4: 63408 07/21/2014 ASSAY OF AMYLASE CPT-4: 01352 07/21/2014 ASSAY OF LIPASE CPT-4: 98904 07/21/2014 THER/PROPH/DIAG INJ SC/IM CPT-4: 83659 07/15/2014 TRIAMCINOLONE ACET INJ NOS CPT-4: J3301 07/15/2014 ROUTINE VENIPUNCTURE CPT-4: 27313 05/14/2014 ASSAY OF FREE THYROXINE CPT-4: 03668 05/14/2014 ASSAY THYROID STIM HORMONE CPT-4: 58190 05/14/2014 COMPREHEN METABOLIC PANEL CPT-4: 56307 05/14/2014 COMPLETE CBC W/AUTO DIFF WBC CPT-4: 62041 05/14/2014 LIPID PANEL CPT-4: 52841 05/14/2014 CEFTRIAXONE SODIUM INJECTION CPT-4: J0696 04/21/2014 THER/PROPH/DIAG INJ SC/IM CPT-4: 95126 04/21/2014 THER/PROPH/DIAG INJ SC/IM CPT-4: 92241 04/21/2014 TRIAMCINOLONE ACET INJ NOS CPT-4: J3301 04/21/2014 THER/PROPH/DIAG INJ SC/IM CPT-4: 31468 03/04/2014 METHYLPREDNISOLONE 40 MG INJ CPT-4: J1030 03/04/2014 TRIAMCINOLONE ACET INJ NOS CPT-4: J3301 03/04/2014 CEFTRIAXONE SODIUM INJECTION CPT-4: J0696 03/04/2014 THER/PROPH/DIAG INJ SC/IM CPT-4: 93981 03/04/2014 TDAP VACCINE 7 YRS/> IM CPT-4: 50563 02/27/2014 IMMUNIZATION ADMIN CPT-4: 58417 02/27/2014 DESTRUCT PREMALG LESION (Cryosurgery) CPT-4: 30516 DESTRUCT PREMALG LES 2-14 CPT-4: 94730 01/13/2014 THER/PROPH/DIAG INJ SC/IM CPT-4: 58643 10/21/2013 METHYLPREDNISOLONE 40 MG INJ CPT-4: J1030 10/21/2013 TRIAMCINOLONE ACET INJ NOS CPT-4: J3301 10/21/2013 CEFTRIAXONE SODIUM INJECTION CPT-4: J0696 08/27/2013 THER/PROPH/DIAG INJ SC/IM CPT-4: 87600 08/27/2013 THER/PROPH/DIAG INJ SC/IM CPT-4: 93499 08/27/2013 METHYLPREDNISOLONE 40 MG INJ CPT-4: J1030 08/27/2013 TRIAMCINOLONE ACET INJ NOS CPT-4: J3301 08/27/2013 THER/PROPH/DIAG INJ SC/IM CPT-4: 96522 06/23/2013 METHYLPREDNISOLONE 40 MG INJ CPT-4: J1030 06/23/2013 TRIAMCINOLONE ACET INJ NOS CPT-4: J3301 06/23/2013 THER/PROPH/DIAG INJ SC/IM CPT-4: 20720 05/26/2013 METHYLPREDNISOLONE 40 MG INJ CPT-4: J1030 05/26/2013 TRIAMCINOLONE ACET INJ NOS CPT-4: J3301 05/26/2013 ROUTINE VENIPUNCTURE CPT-4: 50391 03/05/2013 ASSAY OF FREE THYROXINE CPT-4: 66917 03/05/2013 ASSAY THYROID STIM HORMONE CPT-4: 74259 03/05/2013 COMPREHEN METABOLIC PANEL CPT-4: 11094 03/05/2013 COMPLETE CBC W/AUTO DIFF WBC CPT-4: 65762 03/05/2013 A1C GLYCOSYLATED HEMOGLOBIN TEST CPT-4: 90347 013 DRAIN/INJECT JOINT/BURSA CPT-4: 06354 12/04/2012 METHYLPREDNISOLONE 40 MG INJ CPT-4: J1030 12/04/2012 TRIAMCINOLONE ACET INJ NOS CPT-4: J3301 12/04/2012 CEFTRIAXONE SODIUM INJECTION CPT-4: J0696 11/21/2012 THER/PROPH/DIAG INJ SC/IM CPT-4: 74621 11/21/2012 THER/PROPH/DIAG INJ SC/IM CPT-4: 40508 10/14/2012 METHYLPREDNISOLONE 40 MG INJ CPT-4: J1030 10/14/2012 TRIAMCINOLONE ACET INJ NOS CPT-4: J3301 10/14/2012 URINALYSIS NONAUTO W/O SCOPE CPT-4: 71207 09/27/2012 ROUTINE VENIPUNCTURE CPT-4: 35319 09/25/2012 ASSAY OF FREE THYROXINE CPT-4: 40200 09/25/2012 ASSAY THYROID STIM HORMONE CPT-4: 12488 09/25/2012 COMPREHEN METABOLIC PANEL CPT-4: 29094 09/25/2012 COMPLETE CBC W/AUTO DIFF WBC CPT-4: 37497 09/25/2012 C-REACTIVE PROTEIN CPT-4: 08289 09/25/2012 THER/PROPH/DIAG INJ SC/IM CPT-4: 88787 08/29/2012 METHYLPREDNISOLONE 40 MG INJ CPT-4: J1030 08/29/2012 TRIAMCINOLONE ACET INJ NOS CPT-4: J3301 08/29/2012 DESTRUCT PREMALG LESION (Cryosurgery) CPT-4: 42651 THER/PROPH/DIAG INJ SC/IM CPT-4: 16379 05/06/2012 METHYLPREDNISOLONE 40 MG INJ CPT-4: J1030 05/06/2012 TRIAMCINOLONE ACET INJ NOS CPT-4: J3301 05/06/2012 VITAMIN B 12 FOLIC ACID CPT-4: 09103|00693 05/06/2012 RBC SED RATE AUTOMATED CPT-4: 17191 05/06/2012 ROUTINE VENIPUNCTURE CPT-4: 11070 05/06/2012 ASSAY OF FREE THYROXINE CPT-4: 62707 05/06/2012 ASSAY THYROID STIM HORMONE CPT-4: 38422 05/06/2012 COMPREHEN METABOLIC PANEL CPT-4: 46415 05/06/2012 COMPLETE CBC W/AUTO DIFF WBC CPT-4: 82840 05/06/2012 ASSAY OF BLOOD/URIC ACID CPT-4: 87168 05/06/2012 THER/PROPH/DIAG INJ SC/IM CPT-4: 84849 03/19/2012 KETOROLAC TROMETHAMINE INJ CPT-4: J1885 03/19/2012 KETOROLAC TROMETHAMINE INJ CPT-4: J1885 01/30/2012 THER/PROPH/DIAG INJ SC/IM CPT-4: 25472 01/30/2012 PROMETHAZINE HCL INJECTION CPT-4: J2550 01/30/2012 THER/PROPH/DIAG INJ SC/IM CPT-4: 20479 01/24/2012 METHYLPREDNISOLONE 40 MG INJ CPT-4: J1030 01/24/2012 TRIAMCINOLONE ACET INJ NOS CPT-4: J3301 01/24/2012 THER/PROPH/DIAG INJ SC/IM CPT-4: 26282 09/13/2011 KETOROLAC TROMETHAMINE INJ CPT-4: J1885 09/13/2011 THER/PROPH/DIAG INJ SC/IM CPT-4: 89407 09/13/2011 PROMETHAZINE HCL INJECTION CPT-4: J2550 09/13/2011 CEFTRIAXONE SODIUM INJECTION CPT-4: J0696 07/20/2011 THER/PROPH/DIAG INJ SC/IM CPT-4: 72109 07/20/2011 THER/PROPH/DIAG INJ SC/IM CPT-4: 21386 07/20/2011 METHYLPREDNISOLONE INJECTION CPT-4: J2930 07/20/2011 URINALYSIS NONAUTO W/O SCOPE CPT-4: 14226 05/09/2011 CEFTRIAXONE SODIUM INJECTION CPT-4: J0696 05/09/2011 THER/PROPH/DIAG INJ SC/IM CPT-4: 11273 05/09/2011 THER/PROPH/DIAG INJ SC/IM CPT-4: 73362 05/09/2011 PROMETHAZINE HCL INJECTION CPT-4: J2550 05/09/2011 HYDRATION IV INFUSION INIT CPT-4: 12888 05/09/2011 DESTRUCT PREMALG LESION (Cryosurgery) CPT-4: 62697 DESTRUCT PREMALG LES 2-14 CPT-4: 60243 07/19/2010 REMOVAL OF SKIN TAGS <W/15 CPT-4: 76690 05/30/2010 THER/PROPH/DIAG INJ SC/IM CPT-4: 61120 04/05/2010 CEFTRIAXONE SODIUM INJECTION CPT-4: J0696 04/05/2010 TRIAMCINOLONE ACET INJ NOS CPT-4: J3301 04/05/2010 METHYLPREDNISOLONE 40 MG INJ CPT-4: J1030 04/05/2010 THER/PROPH/DIAG INJ SC/IM CPT-4: 23268 04/05/2010 TRIAMCINOLONE ACET INJ NOS CPT-4: J3301 03/09/2010 METHYLPREDNISOLONE 40 MG INJ CPT-4: J1030 03/09/2010 THER/PROPH/DIAG INJ SC/IM CPT-4: 29190 03/09/2010 THER/PROPH/DIAG INJ SC/IM CPT-4: 39775 03/09/2010 CEFTRIAXONE SODIUM INJECTION CPT-4: J0696 03/09/2010 [...] 1: 132/80 Code: 8480-6 BMI: 35.8 Code: 69446-3 Heart Rate 1: 88 bpm Height: 5'4" Respiratory Rate: 20 bpm SpO2: 95% Tempera ture: 36.9 (C) / 98.5 (F) Weight: 210 lbs 05/28/2019 Blood Pressure 1: 126/82 Code: 8480-6 BMI: 35.0 Code: 28277-3 Heart Rate 1: 88 bpm Height: 5'4" [...] 1: 128/90 Code: 8480-6 BMI: 37.2 Code: 82494-8 Heart Rate 1: 84 bpm Height: 5'4" Respiratory Rate: 20 bpm SpO2: 95% Tempera ture: 36.6 (C) / 97.8 (F) Weight: 217 lbs 08/27/2018 Blood Pressure 1: 128/88 Code: 8480-6 BMI: 38.3 Code: 57768-8 Heart Rate 1: 84 bpm Height: 5'4" [...] 1: 119/72 Code: 8480-6 BMI: 37.4 Code: 05759-6 Heart Rate 1: 82 bpm Height: 5'4" Respiratory Rate: 12 bpm SpO2: 94% Tempera ture: 35.2 (C) / 95.4 (F) Weight: 218 lbs 12/18/2017 Blood Pressure 1: 128/86 Code: 8480-6 BMI: 37.8 Code: 86616-6 Heart Rate 1: 84 bpm Height: 5'4" [...] 1: 128/82 Code: 8480-6 BMI: 35.5 Code: 59197-6 Heart Rate 1: 84 bpm Height: 5'4" [...] 1: 128/82 Code: 8480-6 BMI: 30.2 Code: 89457-1 Heart Rate 1: 80 bpm Height: 5'4" [...] 1: 128/86 Code: 8480-6 BMI: 32.8 Code: 98859-3 Heart Rate 1: 66 bpm Height: 5'4" Respiratory Rate: 18 bpm Temperature: 36 .3 (C) / 97.3 (F) Weight: 191 lbs 06/23/2013 Blood Pressure 1: 132/94 Code: 8480-6 BMI: 34.0 Code: 25222-4 Heart Rate 1: 84 bpm Height: 5'4" Respiratory Rate: 20 bpm Temperature: 36 .8 (C) / 98.2 (F) Weight: 198 lbs 05/26/2013 Blood Pressure 1: 114/80 Code: 8480-6 BMI: 35.0 Code: 11010-6 Heart Rate 1: 80 bpm Height: 5'4" Respiratory Rate: 20 bpm Temperature: 36 .4 (C) / 97.6 (F) Weight: 204 lbs 04/16/2013 Blood Pressure 1: 114/82 Code: 8480-6 BMI: 36.7 Code: 83377-4 Heart Rate 1: 84 bpm Height: 5'4" Respiratory Rate: 20 bpm Temperature: 36 .7 (C) / 98.0 (F) Weight: 214 lbs 03/05/2013 Blood Pressure 1: 136/90 Code: 8480-6 BMI: 37.1 Code: 66821-8 Heart Rate 1: 84 bpm Height: 5'4" [...] 1: 168/114 Code: 8480-6 BMI: 36.2 Code: 51328-3 Heart Rate 1: 104 bpm Height: 5'4" Respiratory Rate: 20 bpm Temperature: 36 .8 (C) / 98.2 (F) Weight: 211 lbs 11/22/2012 Blood Pressure 1: 128/90 Code: 8480-6 Heart Rate 1: 88 bpm Respiratory Rate: 20 bpm SpO2: 96% Temperature: 36.8 (C) / 98.2 (F) 11/21/2012 Blood Pressure 1: 146/100 Code: 8480-6 BMI: 35.7 Code: 39108-5 Heart Rate 1: 96 bpm Height: 5'4" [...] 1: 138/100 Code: 8480-6 BMI: 35.7 Code: 80257-7 Heart Rate 1: 96 bpm Height: 5'4" Respiratory Rate: 20 bpm Temperature: 36 .8 (C) / 98.2 (F) Weight: 208 lbs 05/06/2012 Blood Pressure 1: 154/102 Code: 8480-6 BMI: 34.7 Code: 84106-4 Heart Rate 1: 116 bpm Height: 5'4" Respiratory Rate: 20 bpm Temperature: 36 .8 (C) / 98.2 (F) Weight: 202 lbs 04/03/2012 Blood Pressure 1: 134/94 Code: 8480-6 BMI: 34.8 Code: 03897-2 Heart Rate 1: 108 bpm Height: 5'4" Respiratory Rate: 20 bpm Temperature: 36 .8 (C) / 98.2 (F) Weight: 203 lbs 03/19/2012 Blood Pressure 1: 148/106 Code: 8480-6 BMI: 35.0 Code: 35306-7 Heart Rate 1: 100 bpm Height: 5'4" Respiratory Rate: 20 bpm Temperature: 36 .6 (C) / 97.9 (F) Weight: 204 lbs 02/22/2012 Blood Pressure 1: 146/94 Code: 8480-6 He art Rate 1: 88 bpm 02/21/2012 Blood Pressure 1: 172/120 Code: 8480-6 B lood Pressure 2: 152/106 Code: 8480-6 Heart Rate 1: 116 bpm 02/20/2012 Blood Pressure 1: 160/100 Code: 8480-6 BMI: 32.0 Code: 32322-6 Heart Rate 1: 84 bpm Height: 5'7" Temperature: 36.5 (C) / 97.7 (F) Weight: 204 lbs 01/30/2012 Blood Pressure 1: 152/110 Code: 8480-6 BMI: 32.0 Code: 02655-8 Heart Rate 1: 116 bpm Height: 5'7" Respiratory Rate: 20 bpm Temperature: 37 .0 (C) / 98.6 (F) Weight: 204 lbs 01/24/2012 Blood Pressure 1: 146/100 Code: 8480-6 BMI: 32.0 Code: 49797-2 Heart Rate 1: 100 bpm Height: 5'7" Respiratory Rate: 20 bpm Temperature: 36 .7 (C) / 98.0 (F) Weight: 204 lbs 01/10/2012 Blood Pressure 1: 156/94 Code: 8480-6 BMI: 32.6 Code: 21055-5 Heart Rate 1: 72 bpm Height: 5'7" Respiratory Rate: 20 bpm Temperature: 36 .8 (C) / 98.2 (F) Weight: 208 lbs 12/11/2011 Blood Pressure 1: 146/100 Code: 8480-6 Heart Rat e 1: 116 bpm Height: 5'7" Respiratory Rate: 20 bpm Temperature: 36.9 (C) / 98.4 (F) We ight: 11/09/2011 Blood Pressure 1: 148/96 Code: 8480-6 BMI: 32.1 Code: 80776-9 Heart Rate 1: 116 bpm Height: 5'7" Respiratory Rate: 20 bpm Temperature: 36 .7 (C) / 98.0 (F) Weight: 205 lbs 09/13/2011 Blood Pressure 1: 126/88 Code: 8480-6 Heart Rate 1: 88 bpm Height: 5'7" Respiratory Rate: 20 bpm Temperature: 36.9 (C) / 98.4 (F) We ight: 08/31/2011 Blood Pressure 1: 118/82 Code: 8480-6 BMI: 32.0 Code: 62033-5 Heart Rate 1: 80 bpm Height: 5'7" Temperature: 36.4 (C) / 97.6 (F) Weight: 204 lbs 07/06/2011 Blood Pressure 1: 128/86 Code: 8480-6 BMI: 30.9 Code: 64411-6 Heart Rate 1: 92 bpm Height: 5'7" Respiratory Rate: 20 bpm Temperature: 36 .9 (C) / 98.4 (F) Weight: 197 lbs 06/06/2011 Blood Pressure 1: 112/74 Code: 8480-6 BMI: 31.0 Code: 95195-9 Heart Rate 1: 72 bpm Height: 5'7" [...] 1: 128/92 Code: 8480-6 BMI: 33.6 Code: 73547-1 Heart Rate 1: 104 bpm Height: 5'4" [...] 02/09/2016 insomnia 01/24/2016 cough 12/23/2015 patient is requestsudarshan g rocephin and steroid injection chest congestion [...] Check-up Encounters Encounter Performer Location Codes Date ([id number]) OFFICE/OUTPATIENT VISIT EST Diagnosis: Essential (primary) hypertension[ICD10: I10] Diagnosis: Type 2 diabetes mellitus with hyperglycemia[ICD10: E11.65] Diagnosis: Allergic rhinitis[ICD10: J30.9] María Elena APPIAH DO [facility] CPT-4: 36663 01/13/2020 ([id number]) OFFICE/OUTPATIENT VISIT EST Diagnosis: Type 2 diabetes mellitus with hyperglycemia[ICD10: E11.65] María Elena JUARES LucioJj TD [employer] [facility] CPT-4: 95910 11/20/2019 ([id number]) OFFICE/OUTPATIENT VISIT EST Diagnosis: Ingrowing nail[ICD10: L60.0] Diagnosis: Type 2 diabetes mellitus with hyperglycemia[ICD10: E11.65] Kathleen Zuniga MARÍA ELENA LucioJj [employer] [facility] CPT-4: 44567 10/07/2019 ([id number]) OFFICE/OUTPATIENT VISIT EST Diagnosis: DM w/o complication type II, uncontrolled[ICD10: E11.65] Diagnosis: Hypertriglyceridemia[ICD10: E78.1] Diagnosis: Essential hypertension[ICD10: I10] María Elena JEAN Fabiola APPIAH [employer] [facility] CPT-4: 21114 09/30/2019 ([id number]) NURSE/OUTPATIENT VISIT EST Diagnosis: Essential (primary) hypertension[ICD10: I10] Diagnosis: Cervicalgia[ICD10: M54.2] Diagnosis: Hyperglycemia, unspecified[ICD10: R73.9] Diagnosis: Mixed hyperlipidemia[ICD10: E78.2] María Elena JEAN Fabiola APPIAH [employer] [facility] CPT-4: 44626 09/29/2019 ([id number]) OFFICE/OUTPATIENT VISIT EST Diagnosis: Essential (primary) hypertension[ICD10: I10] Diagnosis: Fall from bed, sequela[ICD10: W06.XXXS] María Elena REED LucioJj [employer] [facility] CPT-4: 44935 05/28/2019 ([id number]) NURSE/OUTPATIENT VISIT EST Diagnosis: Essential (primary) hypertension[ICD10: I10] María Elena JUARES LucioJj [employer] [facility] CPT-4: 05902 05/19/2019 ([id number]) OFFICE/OUTPATIENT VISIT EST Diagnosis: Essential (primary) hypertension[ICD10: I10] Diagnosis: Type 2 diabetes mellitus with hyperglycemia[ICD10: E11.65] Diagnosis: Intervertebral disc disorders with radiculopathy, 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] Diagnosis: Hormone replacement therapy[ICD10: Z79.890] María Elena APPIAH DO [facility] CPT-4: 61857 01/22/2019 ([id number]) OFFICE/OUTPATIENT VISIT EST Diagnosis: Essential (primary) hypertension[ICD10: I10] Diagnosis: Type 2 diabetes mellitus with hyperglycemia[ICD10: E11.65] María Elena APPIAH DO [facility] CPT-4: 69910 09/30/2018 ([id number]) OFFICE/OUTPATIENT VISIT EST Diagnosis: Pain in left elbow[ICD10: M25.522] Diagnosis: Acute stress reaction[ICD10: F43.0] Diagnosis: Primary insomnia[ICD10: F51.01] Diagnosis: Abnormal weight gain[ICD10: R63.5] María Elena APPIAH [facility] CPT-4: 32193 08/27/2018 ([id number]) OFFICE/OUTPATIENT VISIT EST Diagnosis: Acute recurrent sinusitis, unspecified[ICD10: J01.91] Diagnosis: Follicular disorder, unspecified[ICD10: L73.9] Diagnosis: Tinea corporis[ICD10: B35.4] María Elena APPIAH DO [facility] CPT-4: 00881 08/09/2018 ([id number]) OFFICE/OUTPATIENT VISIT EST Diagnosis: Tinea corporis[ICD10: B35.4] Diagnosis: Anxiety disorder, unspecified[ICD10: F41.9] Diagnosis: Menopausal and female climacteric states[ICD10: N95.1] María Elena APPIAH [facility] CPT-4: 11658 07/22/2018 ([id number]) NURSE/OUTPATIENT VISIT EST Diagnosis: Cellulitis of right toe[ICD10: L03.031] María Elena APPIAH [facility] CPT-4: 81770 06/19/2018 ([id number]) OFFICE/OUTPATIENT VISIT EST Diagnosis: Cellulitis of right toe[ICD10: L03.031] Kathleen APPIAH DO [facility] CPT-4: 88673 06/17/2018 ([id number]) OFFICE/OUTPATIENT VISIT EST Diagnosis: Migraine without aura, intractable, without status migrainosus[ICD10: G43.019] Diagnosis: Zoster without complications[ICD10: B02.9] Kathleen APPIAH DO [facility] CPT-4: 91436 05/16/2018 ([id number]) OFFICE/OUTPATIENT VISIT EST Diagnosis: Cellulitis of right lower limb[ICD10: L03.115] Kathleen APPIAH DO [facility] CPT-4: 75431 03/20/2018 ([id number]) OFFICE/OUTPATIENT VISIT EST Diagnosis: Cellulitis of right lower limb[ICD10: L03.115] Kathleen APPIA[facility] DO [facility] CPT-4: 85063 03/18/2018 ([id number]) OFFICE/OUTPATIENT VISIT EST Diagnosis: Cellulitis of right lower limb[ICD10: L03.115] Kathleen APPIAH DO [facility] CPT-4: 60357 03/15/2018 ([id number]) OFFICE/OUTPATIENT VISIT EST Diagnosis: Acute sinusitis, unspecified[ICD10: J01.90] Kathleen APIPAH DO [facility] CPT-4: 99840 02/11/2018 ([id number]) NURSE/OUTPATIENT VISIT EST Diagnosis: Otitis media, unspecified, right ear[ICD10: H66.91] María Elena APPIA[facility] DO [facility] CPT-4: 47706 02/01/2018 ([id number]) OFFICE/OUTPATIENT VISIT EST Diagnosis: Acute suppurative otitis media without spontaneous rupture of ear drum, left ear[ICD10: H66.002] Diagnosis: Abnormal weight gain[ICD10: R63.5] Diagnosis: Intervertebral disc disorders with radiculopathy, 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] Kathleen APPIAH DO [facility] CPT-4: 99 214 01/30/2018 ([id number]) PREV VISIT EST AGE 40-64 Diagnosis: Encounter for general adult medical examination without abnormal findings[ICD10: Z00.00] Diagnosis: Essential (primary) hypertension[ICD10: I10] Diagnosis: Mixed hyperlipidemia[ICD10: E78.2] Diagnosis: Type 2 diabetes mellitus with hyperglycemia[ICD10: E11.65] Diagnosis: 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] María Elena APPIAH DO [facility] CPT-4: 77928 12/18/2017 ([id number]) OFFICE/OUTPATIENT VISIT EST Diagnosis: Cellulitis of right toe[ICD10: L03.031] Diagnosis: Mixed hyperlipidemia[ICD10: E78.2] Diagnosis: Essential (primary) hypertension[ICD10: I10] Diagnosis: Hyperglycemia, unspecified[ICD10: R73.9] Diagnosis: Nontoxic goiter, 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] María Elena APPIAH DO [facility] CPT-4: 12003 12/10/2017 ([id number]) OFFICE/OUTPATIENT VISIT EST Diagnosis: Cellulitis of right toe[ICD10: L03.031] Diagnosis: Acute sinusitis, unspecified[ICD10: J01.90] Kathleen APPIAH DO [facility] CPT-4: 23165 12/07/2017 OFFICE/OUTPATIENT VISIT EST Diagnosis: Acute maxillary sinusitis, unspecified[ICD10: J01.00] Kathleen APPIAH DO [facility] CPT-4: 91853 10/08/2017 ([id number]) OFFICE/OUTPATIENT VISIT EST Diagnosis: Cellulitis of left toe[ICD10: L03.032] María Elena IS[employer]AC [employer] APP[facility] [employer] [facility] CPT-4: 34873 09/21/2017 ([id number]) OFFICE/OUTPATIENT VISIT EST Diagnosis: Insomnia, unspecified[ICD10: G47.00] Diagnosis: Major depressive disorder, single episode, unspecified[ICD10: F32.9] Diagnosis: Anxiety disorder, unspecified[ICD10: F41.9] Diagnosis: Cellulitis of left toe[ICD10: L03.032] Diagnosis: Snoring[ICD10: R06.83] Kathleen APPIAH DO [facility] CPT-4: 79949 09/20/2017 ([id number]) OFFICE/OUTPATIENT VISIT EST Diagnosis: Cellulitis of left toe[ICD10: L03.032] María Elena [facility] CPT-4: 46479 07/19/2017 OFFICE/OUTPATIENT VISIT EST Diagnosis: Chronic sinusitis, unspecified[ICD10: J32.9] Diagnosis: Generalized hyperhidrosis[ICD10: R61] Kathleen APPIAH DO [facility] CPT-4: 86564 06/27/2017 ([id number]) OFFICE/OUTPATIENT VISIT EST Diagnosis: Intervertebral disc disorders with radiculopathy, 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] Diagnosis: Primary insomnia[ICD10: F51.01] Diagnosis: Other fatigue[ICD10: R53.83] María Elena APPIAH DO [facility] CPT-4: 82858 04/10/2017 ([id number]) OFFICE/OUTPATIENT VISIT EST Diagnosis: Primary insomnia[ICD10: F51.01] Diagnosis: Localized edema[ICD10: R60.0] Diagnosis: 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] María Elena APPIAH [employer] [facility] CPT-4: 88762 12/13/2016 ([id number]) OFFICE/OUTPATIENT VISIT EST Diagnosis: Primary insomnia[ICD10: F51.01] Diagnosis: Cyanosis[ICD10: R23.0] María Elena [employer] [facility] CPT-4: 16162 11/01/2016 ([id number]) PREV VISIT EST AGE 40-64 Diagnosis: Encounter for gynecological examination (general) (routine) without abnormal findings[ICD10: Z01.419] Diagnosis: Encounter for routine child health examination without abnormal findings[ICD10: Z00.129] María Elena APPIAH [employer] [facility] CPT-4: 26924 10/17/2016 ([id number]) OFFICE/OUTPATIENT VISIT EST Diagnosis: Other seasonal allergic rhinitis[ICD10: J30.2] María Elena APPIAH DO [facility] CPT-4: 98819 10/10/2016 ([id number]) OFFICE/OUTPATIENT VISIT EST Diagnosis: Pain in left arm[ICD10: M79.602] Diagnosis: Contact with and (suspected) exposure to potentially hazardous body fluids[ICD10: Z77.21] Diagnosis: 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, 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] Diagnosis: Unspecified open wound, right foot, sequela[ICD10: S91.301S] María Elena APPIAH DO [facility] CPT-4: 12825 09/19/2016 ([id number]) OFFICE/OUTPATIENT VISIT EST Diagnosis: Chronic sinusitis, unspecified[ICD10: J32.9] Diagnosis: Allergic rhinitis due to pollen[ICD10: J30.1] María Elena APPIAH DO [facility] CPT-4: 87830 08/24/2016 ([id number]) OFFICE/OUTPATIENT VISIT EST Diagnosis: Acute bronchitis, unspecified[ICD10: J20.9] María Elena APPIAH DO [facility] CPT-4: 42729 08/16/2016 ([id number]) OFFICE/OUTPATIENT VISIT EST Diagnosis: Otitis media, unspecified, right ear[ICD10: H66.91] Diagnosis: Acute bronchitis, unspecified[ICD10: J20.9] María Elena APPIAH [employer] [facility] CPT-4: 13665 08/10/2016 ([id number]) OFFICE/OUTPATIENT VISIT EST Diagnosis: Acute recurrent sinusitis, unspecified[ICD10: J01.91] Diagnosis: Allergic rhinitis due to pollen[ICD10: J30.1] María Elena APPIAH [employer] [facility] CPT-4: 21039 08/02/2016 ([id number]) OFFICE/OUTPATIENT VISIT EST Diagnosis: Pain in unspecified joint[ICD10: M25.50] María Elena APPIAH [employer] [facility] CPT-4: 11991 07/27/2016 OFFICE/OUTPATIENT VISIT EST Diagnosis: 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] Diagnosis: Acute recurrent sinusitis, unspecified[ICD10: J01.91] Diagnosis: Other fatigue[ICD10: R53.83] Diagnosis: Primary insomnia[ICD10: F51.01] Diagnosis: Pain in unspecified joint[ICD10: M25.50] María Elena APPIAH DO [facility] CPT-4: 89680 07/20/2016 ([id number]) OFFICE/OUTPATIENT VISIT EST Diagnosis: Blister (nonthermal), left great toe, initial encounter[ICD10: S90.422A] Loan APPIAH DO [facility] CPT-4: 13423 ([id number]) OFFICE/OUTPATIENT VISIT EST Diagnosis: Acute recurrent sinusitis, unspecified[ICD10: J01.91] María Elena APPIAH DO [facility] CPT-4: 57030 05/25/2016 ([id number]) OFFICE/OUTPATIENT VISIT EST Diagnosis: Acute sinusitis, unspecified[ICD10: J01.90] María Elena APPIAH DO [facility] CPT-4: 92052 04/26/2016 ([id number]) OFFICE/OUTPATIENT VISIT EST Diagnosis: Flushing[ICD10: R23.2] Diagnosis: Primary insomnia[ICD10: F51.01] María Elena APPIAH [facility] CPT-4: 91764 03/02/2016 ([id number]) OFFICE/OUTPATIENT VISIT EST Diagnosis: Other seasonal allergic rhinitis[ICD10: J30.2] Loan APPIAH [facility] CPT-4: 64811 02/09/2016 ([id number]) OFFICE/OUTPATIENT VISIT EST Diagnosis: Primary insomnia[ICD10: F51.01] Diagnosis: Urinary tract infection, site not specified[ICD10: N39.0] María Elena APPIAH [facility] CPT-4: 25329 01/24/2016 ([id number]) OFFICE/OUTPATIENT VISIT EST Diagnosis: Other specified disorders of Eustachian tube, bilateral[ICD10: H69.83] Diagnosis: Allergic rhinitis, unspecified[ICD10: J30.9] Loan APPIAH [facility] CPT-4: 86528 12/23/2015 ([id number]) OFFICE/OUTPATIENT VISIT EST Diagnosis: Acute recurrent sinusitis, unspecified[ICD10: J01.91] Diagnosis: 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] Diagnosis: Allergic rhinitis, unspecified[ICD10: J30.9] María Elena APPIAH DO [facility] CPT-4: 17225 12/08/2015 ([id number]) OFFICE/OUTPATIENT VISIT EST Diagnosis: Allergic rhinitis, unspecified[ICD10: J30.9] Diagnosis: Pain in unspecified joint[ICD10: M25.50] María Elena APPIAH DO [facility] CPT-4: 36079 10/07/2015 ([id number]) OFFICE/OUTPATIENT VISIT EST Diagnosis: Essential (primary) hypertension[ICD10: I10] María Elena APPIAH DO [facility] CPT-4: 22627 10/06/2015 OFFICE/OUTPATIENT VISIT EST Diagnosis: Localized enlarged lymph nodes[ICD10: R59.0] Diagnosis: Local infection of the skin and subcutaneous tissue, unspecified[ICD10: L08.9] June Sandra MARÍA ELENA APPIAH DO [facility] CPT- 4: 18508 09/14/2015 ([id number]) OFFICE/OUTPATIENT VISIT EST Diagnosis: Essential (primary) hypertension[ICD10: I10] Diagnosis: Actinic keratosis[ICD10: L57.0] María Elena APPIAH DO [facility] CPT-4: 62487 09/07/2015 ([id number]) OFFICE/OUTPATIENT VISIT EST Diagnosis: Essential (primary) hypertension[ICD10: I10] Diagnosis: Acute stress reaction[ICD10: F43.0] María Elena APPIAH DO [facility] CPT-4: 74415 08/18/2015 ([id number]) OFFICE/OUTPATIENT VISIT EST Diagnosis: Essential (primary) hypertension[ICD10: I10] María Elena APPIAH DO [facility] CPT-4: 47447 07/07/2015 ([id number]) OFFICE/OUTPATIENT VISIT EST Diagnosis: Essential (primary) hypertension[ICD10: I10] María Elena APPIAH DO [facility] CPT-4: 25800 06/24/2015 ([id number]) OFFICE/OUTPATIENT VISIT EST Diagnosis: Essential (primary) hypertension[ICD10: I10] María Elena APPIAH [facility] CPT-4: 34361 06/21/2015 ([id number]) OFFICE/OUTPATIENT VISIT EST Diagnosis: Essential (primary) hypertension[ICD10: I10] Diagnosis: Mixed hyperlipidemia[ICD10: E78.2] Diagnosis: Acute stress reaction[ICD10: F43.0] Diagnosis: Primary insomnia[ICD10: F51.01] María Elena APPIAH [facility] CPT-4: 60328 06/16/2015 ([id number]) OFFICE/OUTPATIENT VISIT EST Diagnosis: INSOMNIA NOS[ICD9: 780.52] Diagnosis: HYPERTENSION[ICD9: 401.9] Diagnosis: Stress reaction[ICD9: 308.9] María Elena APPIAH [facility] CPT-4: 17713 06/02/2015 ([id number]) OFFICE/OUTPATIENT VISIT EST Diagnosis: HYPERTENSION[ICD9: 401.9] Diagnosis: Stress reaction[ICD9: 308.9] María Elena APPIAH [facility] CPT-4: 59575 05/20/2015 ([id number]) OFFICE/OUTPATIENT VISIT EST Diagnosis: Skin lesion[ICD9: 709.9] 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] María Elena APPIAH [facility] CPT-4: 41462 05/10/2015 ([id number]) OFFICE/OUTPATIENT VISIT EST Diagnosis: SINUSITIS, ACUTE[ICD9: 461.9] Diagnosis: ALLERGIC RHINITIS[ICD9: 477.9] Diagnosis: DERMATITIS NOS[ICD9: 692.9] María Elena Rodríguez ORI [facility] CPT-4: 60214 03/16/2015 OFFICE/OUTPATIENT VISIT EST Diagnosis: Otitis media[ICD9: 382.9] Diagnosis: SINUSITIS, ACUTE[ICD9: 461.9] June Flores MARÍA ELENA APPIAH [facility] CPT-4: 69079 09/11/2014 ([id number]) OFFICE/OUTPATIENT VISIT EST Diagnosis: HYPERLIPIDEMIA NEC/NOS[ICD9: 272.4] María Elena MONTEROGOMEZ COLON Fabiola APPIAH [facility] CPT-4: 06632 08/31/2014 ([id number]) OFFICE/OUTPATIENT VISIT EST Diagnosis: - I - HYPERTENSION[ICD9: 401.9] Diagnosis: HYPERLIPIDEMIA NEC/NOS[ICD9: 272.4] María Elena APPIAH DO [facility] CPT-4: 48162 08/27/2014 ([id number]) OFFICE/OUTPATIENT VISIT EST Diagnosis: ABDOMINAL PAIN[ICD9: 789.00] Diagnosis: DYSPEPSIA[ICD9: 536.8] Diagnosis: Thoracic back pain[ICD9: 724.1] María Elena APPIAH DO [facility] CPT-4: 65820 07/21/2014 ([id number]) OFFICE/OUTPATIENT VISIT EST Diagnosis: ALLERGIC RHINITIS[ICD9: 477.9] María Elena APPIAH DO [facility] CPT-4: 48131 07/15/2014 ([id number]) OFFICE/OUTPATIENT VISIT EST Diagnosis: EDEMA[ICD9: 782.3] Diagnosis: Chronic insomnia[ICD9: 780.52] María Elena APPIAH [facility] CPT-4: 31500 05/18/2014 ([id number]) OFFICE/OUTPATIENT VISIT EST Diagnosis: Thyromegaly[ICD9: 240.9] Diagnosis: - I - HYPERTENSION[ICD9: 401.9] Diagnosis: ROUTINE MEDICAL EXAM[ICD9: V70.0] Diagnosis: EDEMA[ICD9: 782.3] María Elena APPIAH [facility] CPT-4: 94409 05/14/2014 OFFICE/OUTPATIENT VISIT EST Diagnosis: BRONCHITIS, ACUTE[ICD9: 466.0] Diagnosis: SINUSITIS, ACUTE[ICD9: 461.9] María Elena APPIAH DO [facility] CPT-4: 67785 04/21/2014 OFFICE/OUTPATIENT VISIT EST Diagnosis: SINUSITIS, ACUTE[ICD9: 461.9] June Sandra MARÍA ELENA PAPIAH DO [facility] CPT-4: 50508 03/04/2014 ([id number]) OFFICE/OUTPATIENT VISIT EST Diagnosis: VACCINE FOR TDAP[ICD10: Z23] María Elena APPIAH [facility] CPT-4: 48500 02/27/2014 ([id number]) OFFICE/OUTPATIENT VISIT EST Diagnosis: Seborrheic keratoses, inflamed[ICD9: 702.11] Diagnosis: ACTINIC KERATOSIS[ICD9: 702.0] Diagnosis: INSOMNIA NOS[ICD9: 780.52] María Elena Valdes [facility]YN [facility] CPT-4: 71895 01/13/2014 OFFICE/OUTPATIENT VISIT EST 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] Diagnosis: ALLERGIC RHINITIS[ICD9: 477.9] Diagnosis: Serous otitis media[ICD9: 381.4] María Elena APPIAH [facility] CPT-4: 59903 12/24/2013 ([id number]) OFFICE/OUTPATIENT VISIT EST Diagnosis: SINUSITIS, ACUTE[ICD9: 461.9] Diagnosis: ALLERGIC RHINITIS[ICD9: 477.9] 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] María [facility]: 31197 11/12/2013 ([id number]) OFFICE/OUTPATIENT VISIT EST Diagnosis: ALLERGIC RHINITIS[ICD9: 477.9] Diagnosis: SINUSITIS, ACUTE[ICD9: 461.9] María Elena [facility] CPT[facility]: 91553 10/21/2013 ([id number]) OFFICE/OUTPATIENT VISIT EST Diagnosis: ASYMPTOMATIC VARICOSE VEINS[ICD9: 454.9] Diagnosis: INSOMNIA NOS[ICD9: 780.52] María Elena [facility] CPT-4: 92681 09/22/2013 OFFICE/OUTPATIENT VISIT EST Diagnosis: SINUSITIS, ACUTE[ICD9: 461.9] June Flores MARÍA ELENA [facility] CPT-4: 47302 08/27/2013 ([id number]) OFFICE/OUTPATIENT VISIT EST Diagnosis: CEPHALGIA[ICD9: 784.0] Diagnosis: CEPHALGIA, TENSION[ICD9: 307.81] 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] María Elena APPIAH DO [facility] CPT-4: 09242 08/04/2013 ([id number]) OFFICE/OUTPATIENT VISIT EST Diagnosis: Cervicalgia[ICD9: 723.1] Diagnosis: SPASM OF MUSCLE[ICD9: 728.85] Diagnosis: CEPHALGIA, TENSION[ICD9: 307.81] María Elena APPIAH DO [facility] CPT-4: 89269 07/23/2013 ([id number]) OFFICE/OUTPATIENT VISIT EST 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] Diagnosis: ALLERGIC RHINITIS[ICD9: 477.9] María Elena APPIAH DO [facility] CPT-4: 15343 06/23/2013 ([id number]) OFFICE/OUTPATIENT VISIT EST Diagnosis: ALLERGIC RHINITIS[ICD9: 477.9] Diagnosis: ACUTE SEROUS OTITIS MEDIA[ICD9: 381.01] 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] María Elena APPIAH DO [facility] CPT-4: 61512 05/26/2013 ([id number]) OFFICE/OUTPATIENT VISIT EST Diagnosis: HYPERTENSION[ICD9: 401.9] Diagnosis: EDEMA[ICD9: 782.3] Diagnosis: Serous otitis media[ICD9: 381.4] María Elena APPIAH DO [facility] CPT-4: 61636 04/16/2013 ([id number]) OFFICE/OUTPATIENT VISIT EST Diagnosis: SINUSITIS, ACUTE[ICD9: 461.9] Diagnosis: ALLERGIC RHINITIS[ICD9: 477.9] Diagnosis: EDEMA[ICD9: 782.3] Diagnosis: Thyromegaly[ICD9: 240.9] Diagnosis: MALAISE AND FATIGUE[ICD9: 780.79] María Elena APPIAH [facility] CPT-4: 46848 03/05/2013 ([id number]) OFFICE/OUTPATIENT VISIT EST Diagnosis: PAIN, LOWER BACK[ICD9: 724.2] Diagnosis: SPASM OF MUSCLE[ICD9: 728.85] María Elena APPIAH DO [facility] CPT-4: 83582 12/23/2012 OFFICE/OUTPATIENT VISIT EST Diagnosis: Low back pain[ICD9: 724.2] Lashawn Hicks K[facility]YN [facility] CPT-4: 15067 12/16/2012 ([id number]) OFFICE/OUTPATIENT VISIT EST Diagnosis: PAIN, LOWER BACK[ICD9: 724.2] Diagnosis: SCIATICA[ICD9: 724.3] Diagnosis: Lumbar herniated disc[ICD9: 722.10] María Elena COLON LucioJj TD [facility] CPT-4: 12121 12/09/2012 ([id number]) OFFICE/OUTPATIENT VISIT EST Diagnosis: PAIN, LOWER BACK[ICD9: 724.2] Diagnosis: SCIATICA[ICD9: 724.3] Diagnosis: LUMBAR DISC DISPLACEMENT[ICD9: 722.10] María Elena MARIN LucioJj TD [facility] CPT-4: 95664 12/04/2012 OFFICE/OUTPATIENT VISIT EST Diagnosis: Pneumonia[ICD9: 486] Mary Hicks TD [facility] CPT-4: 18388 11/22/2012 ([id number]) OFFICE/OUTPATIENT VISIT EST Diagnosis: PNEUMONIA, ORGANISM[ICD9: 486] Diagnosis: Exacerbation of RAD (reactive airway disease)[ICD9: 493.92] María Elena JUARES LucioJj TD [facility] CPT-4: 45444 11/21/2012 OFFICE/OUTPATIENT VISIT EST Diagnosis: HYPERTENSION[ICD9: 401.9] Diagnosis: Cephalgia[ICD9: 784.0] Lashawn Hicks SEAMUSMINDIVICTORINO [facility] CPT-4: 37888 10/29/2012 ([id number]) OFFICE/OUTPATIENT VISIT EST Diagnosis: MALAISE AND FATIGUE[ICD9: 780.79] Diagnosis: ARTHRALGIA-MULTIPLE SITES[ICD9: 719.49] María Elena Hicks TD [facility] CPT-4: 36821 10/14/2012 ([id number]) OFFICE/OUTPATIENT VISIT EST Diagnosis: URINARY FREQUENCY[ICD9: 788.41] María Elena Hicks TD [facility] CPT-4: 08454 09/27/2012 ([id number]) OFFICE/OUTPATIENT VISIT EST Diagnosis: MALAISE AND FATIGUE[ICD9: 780.79] Diagnosis: ARTHRALGIA-MULTIPLE SITES[ICD9: 719.49] María Elena ValdesJj [facility] CPT-4: 23749 09/25/2012 ([id number]) OFFICE/OUTPATIENT VISIT EST Diagnosis: SINUSITIS, ACUTE[ICD9: 461.9] 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] María Elena ValdesJj TD [facility] CPT-4: 98367 08/29/2012 OFFICE/OUTPATIENT VISIT EST Diagnosis: ACTINIC KERATOSIS[ICD9: 702.0] Diagnosis: Inflamed seborrheic keratosis[ICD9: 702.11] Diagnosis: Skin cancer of face[ICD9: 173.31] Diagnosis: HYPERTENSION[ICD9: 401.9] María Elena Waymindivictorino ValdesJj [facility] CPT-4: 00875 08/12/2012 ([id number]) OFFICE/OUTPATIENT VISIT EST Diagnosis: ARTHRALGIA-MULTIPLE SITES[ICD9: 719.49] Diagnosis: GOUT[ICD9: 274.9] Diagnosis: HYPERTENSION[ICD9: 401.9] Diagnosis: Tachycardia[ICD9: 785.0] María Elena ELLISLINE LucioJj [facility] CPT-4: 26412 05/06/2012 ([id number]) OFFICE/OUTPATIENT VISIT EST Diagnosis: INSOMNIA NOS[ICD9: 780.52] María Elena Seamusabbey JUARES LucioJj [facility] CPT-4: 93962 04/03/2012 ([id number]) OFFICE/OUTPATIENT VISIT EST Diagnosis: INSOMNIA NOS[ICD9: 780.52] Diagnosis: HYPERTENSION[ICD9: 401.9] Diagnosis: MIGRAINE NOS/NOT INTRCBL[ICD9: 346.90] María Elena Seamusabbey MARIN [facility]Jj [facility]: 19677 03/19/2012 ([id number]) OFFICE/OUTPATIENT VISIT EST Diagnosis: CELLULITIS[ICD9: 682.9] Diagnosis: Ankle pain[ICD9: 719.47] Diagnosis: HYPERTENSION[ICD9: 401.9] María Elena JUARES LucioJj [facility] CPT-4: 41606 02/20/2012 ([id number]) OFFICE/OUTPATIENT VISIT EST Diagnosis: MIGRAINE NOS/NOT INTRCBL[ICD9: 346.90] Diagnosis: Vomiting[ICD9: 787.03] María Elena JUARES LucioJj CIRO Bazzi [facility] CPT-4: 10292 01/30/2012 ([id number]) OFFICE/OUTPATIENT VISIT EST Diagnosis: EDEMA[ICD9: 782.3] Diagnosis: HYPERTENSION[ICD9: 401.9] Diagnosis: ALLERGIC RHINITIS[ICD9: 477.9] Diagnosis: ARTHRALGIA-MULTIPLE SITES[ICD9: 719.49] María Elena Hicks [facility] CPT-4: 97022 01/24/2012 ([id number]) OFFICE/OUTPATIENT VISIT EST Diagnosis: SPASM OF MUSCLE[ICD9: 728.85] Diagnosis: Thoracic back pain[ICD9: 724.1] Diagnosis: Cervical pain[ICD9: 723.1] María Elena Hicks KRISTYN [facility]UM[facility] CPT-4: 82432 01/10/2012 OFFICE/OUTPATIENT VISIT EST Diagnosis: PAIN, LOWER BACK[ICD9: 724.2] Diagnosis: LUMBAR DISC DISPLACEMENT[ICD9: 722.10] María Elena MARIN LucioJj TD [facility] CPT-4: 31106 12/11/2011 OFFICE/OUTPATIENT VISIT EST Diagnosis: MIGRAINE NOS/NOT INTRCBL[ICD9: 346.90] Diagnosis: SINUSITIS, ACUTE[ICD9: 461.9] María Elena Hicks [facility] CPT-4: 38829 11/09/2011 OFFICE/OUTPATIENT VISIT EST Diagnosis: MIGRAINE NOS/NOT INTRCBL[ICD9: 346.90] Diagnosis: LYMPHADENOPATHY[ICD9: 785.6] María Elena Hicks TD [facility] CPT-4: 93588 09/13/2011 OFFICE/OUTPATIENT VISIT EST Diagnosis: MALAISE AND FATIGUE[ICD9: 780.79] Diagnosis: ARTHRALGIA-MULTIPLE SITES[ICD9: 719.49] María Elena Hicks TD [facility] CPT-4: 58615 08/31/2011 OFFICE/OUTPATIENT VISIT EST Diagnosis: SINUSITIS, ACUTE[ICD9: 461.9] María Elena APPIAH DO [facility] CPT-4: 79558 07/20/2011 OFFICE/OUTPATIENT VISIT EST Diagnosis: HYPERTENSION[ICD9: 401.9] Diagnosis: PAIN, LOWER BACK[ICD9: 724.2] Diagnosis: SPASM OF MUSCLE[ICD9: 728.85] María Elena APPIAH DO [facility] CPT-4: 96796 07/06/2011 OFFICE/OUTPATIENT VISIT EST Diagnosis: MIGRAINE NOS/NOT INTRCBL[ICD9: 346.90] Diagnosis: HYPERTENSION[ICD9: 401.9] María Elena MOJICAR DO [facility] CPT-4: 23393 05/22/2011 OFFICE/OUTPATIENT VISIT EST Diagnosis: SINUSITIS, ACUTE[ICD9: 461.9] Diagnosis: MIGRAINE NOS/NOT INTRCBL[ICD9: 346.90] Diagnosis: Dehydration[ICD9: 276.51] Diagnosis: Vomiting[ICD9: 787.03] María Elena Bazzi DO [facility] CPT-4: 60135 05/09/2011 ([id number]) OFFICE/OUTPATIENT VISIT EST María Elena ISAAC UJARED S. SEAMUSNDER DO [facility] CPT-4: 83728 02/14/2011 ([id number]) OFFICE/OUTPATIENT VISIT EST María Elena ISAAC UJARED S. ORENDER [facility] CPT-4: 13113 02/03/2011 ([id number]) OFFICE/OUTPATIENT VISIT EST María Elena ISAAC UELINE S. [facility] CPT-4: 05301 01/31/2011 ([id number]) OFFICE/OUTPATIENT VISIT EST María Elena Td ISAAC UJARED S. [facility]US[facility]ER [facility] CPT-4: 40324 01/25/2011 ([id number]) OFFICE/OUTPATIENT VISIT EST María Elenamarcella MARIN S. [facility] CPT-4: 31382 01/18/2011 ([id number]) OFFICE/OUTPATIENT VISIT EST María Elena ISAAC [facility]JARED [facility] CPT-4: 84683 11/29/2010 ([id number]) OFFICE/OUTPATIENT VISIT, EST María Elena REED [facility] CPT-4: 18507 10/10/2010 ([id number]) OFFICE/OUTPATIENT VISIT, EST María Elena [facility] CPT-4: 37487 06/07/2010 ([id number]) OFFICE/OUTPATIENT VISIT, EST María Elena [facility] CPT-4: 53889 04/27/2010 ([id number]) OFFICE/OUTPATIENT VISIT, EST María Elena [facility] CPT-4: 05387 04/05/2010 ([id number]) OFFICE/OUTPATIENT VISIT, EST María Elena [facility] CPT-4: 60228 03/09/2010 ([id number]) OFFICE/OUTPATIENT VISIT, EST María Elena [facility] CPT-4: 53712 03/03/2010 ([id number]) OFFICE/OUTPATIENT VISIT, EST María Elena [facility] CPT-4: 33372 01/17/2010 ([id number]) PREV VISIT, EST, AGE 40-64 María Elena COLEMAN [facility] CPT-4: 42991 12/27/2009 Plan of Care Planned Activity Notes [...] ICD-10 : E11.65 01/13/2020 Appointment: María Elena [facility]el[facility] [phone] [id number] [facility] 01/13/2020 Patient Education: lisinopril- [employer] [id number] Completed 01/13/2020 Patient Education: glimepiride- [employer] C[employer]on [id number] Completed 01/13/2020 Appointment: María Elena Appiah [facility]el[facility] [phone] [id number] [place] CANCELED 11/26/2019 Visit Diagnosis Plan: Type 2 diabetes mellitus with hy perglycemia Discussion: Januvia 100mg daily Glimepride 2mg po BID Accuchecks BID Call in 2 weeks with BS readings Get formulary book ICD-9 : 250.02 ICD-10 : E11.65 11/20/2019 Appointment: María Elena Appiah W[facility]el[facility] [phone] [id number] FO[facility] 11/20/2019 Patient Education: glimepiride- [employer] C[employer]on [id number] Completed 11/20/2019 Patient Education: Januvia- [employer] C[employer]on [id number] Completed 11/20/2019 Visit Diagnosis Plan: Ingrowing nail [...] : E11.65 10/07/2019 Appointment: Kathleen Zuniga [address] [facility] US OFFICE SURGERY 10/07/2019 Visit Diagnosis Plan: [...] E11.65 09/30/2019 Appointment: María Elena Appiah WPtel: [address] [place], [place] [phone] [place] CHECK UP 09/30/2019 Patient Education: Premarin- [employer] Coupon [id number] https://[email or web address]/samplemd/resources/getResource/61/[email or web address]-[email or web address] Completed 09/30/2019 Appointment: María Elena Appiah WPtel: [address] [place], [place] [phone] [place] LAB 09/29/2019 Appointment: María Elena Appiah WPtel: [address] [place], [place] [phone] [place] Won't have the new insurance till [...] W06.XXXS 05/28/2019 Appointment: María Elena Appiah WPtel: [address] [place], [place] [phone] [place] FOLLOW UP 05/28/2019 Appointment: María Elena Appiah WPtel: [address] [place] [address] US BP CHECK 05/19/2019 Visit Diagnosis Plan: [...] Z79.890 01/22/2019 Appointment: María Elena Appiah WPtel: [address] [place], [place] [phone] [place] FOLLOW UP 01/22/2019 Patient Education: estradiol- [employer] Coupon [id number] https://[email or web address]/samplemd/resources/getResource/61/[email or web address] Completed 01/22/2019 Appointment: María Elena Appiahtel: [address] [place], [place] [phone] [place] CANCELED 01/20/2019 Appointment: María Elena Appiah WPtel: [address] [place], [place] [phone] [place] LM NO SHOW 01/06/2019 Appointment: María Elena Appiah WPtel: [address] [place] [address] [place] CANCELED 10/17/2018 Appointment: María Elena Appiah WPtel: [address] [place] [address] US BP CHECK 10/09/2018 Visit Diagnosis Plan: [...] I10 09/30/2018 Appointment: María Elena Appiah WPtel: [address] [place] [address] US FOLLOW UP 09/30/2018 Visit Diagnosis Plan: [...] 08/27/2018 Appointment: María Elena Appiah WPtel: [address] [place] [address] ACUTE ILLNESS 08/27/2018 Appointment: María Elena Appiah WPtel: [address] [place] [address] [place] Patient stated she went out to [...] Tyle... 08/09/2018 Appointment: María Elena Appiah WPtel: [address] [place] [address] ACUTE ILLNESS 08/09/2018 Appointment: María Elena Appiahtel: [address] [place] [address] NO SHOW 08/08/2018 Visit Diagnosis Plan: Anxiety [...] : B35.4 07/22/2018 Appointment: María Elena Appiahtel: [address] [place] [address] ACUTE ILLNESS 07/22/2018 Appointment: María Elena Appiahtel: [address] [place] [address] [place] INJECTION 06/19/2018 Patient Education: Patient Medication [...] : L03.031 06/17/2018 Appointment: Kathleen Zuniga [address] ACUTE ILLNESS 06/17/2018 Patient Education: Patient Medication [...] : B02.9 05/16/2018 Appointment: Kathleen Zuniga [address] [place] [id number] ACUTE ILLNESS 05/16/2018 Patient Education: Patient Medication [...] ICD-10 : L03.115 03/20/2018 Appointment: Kathleen Zuniga [address] [place], [place] [address] FOLLOW UP 03/20/2018 Patient Education: Patient Medication [...] : L03.115 03/18/2018 Appointment: Kathleen Zuniga [address] [place] [phone] FOLLOW UP 03/18/2018 Patient Education: Patient Medication [...] ICD-10 : L03.115 03/15/2018 Appointment: Kathleen Zuniga [address] [place] [id number] ACUTE ILLNESS 03/15/2018 Patient Education: Patient Medication [...] ICD-10 : J01.90 02/11/2018 Appointment: Kathleen Zuniga [address] [place] [phone] ACUTE ILLNESS 02/11/2018 Patient Education: Patient Medication Summary Completed 02/11/2018 Appointment: María Elena Appiah WPtel: [phone] [facility] INJECTION 02/01/2018 Patient Education: Patient Medication [...] : M51.16 01/30/2018 Appointment: Kathleen Zuniga [address] [place] [address] ACUTE ILLNESS 01/30/2018 Patient Education: Patient Medication [...] 12/18/2017 Appointment: María Elena Appiah WPtel: [phone] Annual Well Visit 12/18/2017 Patient Education: Patient Medication Summary Completed 12/18/2017 Care Plan: Referral Order SNOMED-CT : [id number] Pending 12/18/2017 Appointment: María Elena Appiah WPtel: [phone] [id number] [place] INJECTION 12/10/2017 Patient Education: Patient [...] : L03.031 12/07/2017 Appointment: Kathleen Zuniga [address] [place] [address] ACUTE ILLNESS 12/07/2017 Patient Education: Patient Medication [...] ICD-10 : J01.00 10/08/2017 Appointment: Kathleen Zuniga [address] [place], [place] [id number] ACUTE ILLNESS 10/08/2017 Patient Education: Patient Medication Summary Completed 10/08/2017 Appointment: María Elena Appiah WPtel: [phone] [id number] [place] INJECTION 09/21/2017 Patient Education: Patient [...] ICD-10 : R06.83 09/20/2017 Appointment: Kathleen Zuniga [address] [place], [place] [id number] ACUTE ILLNESS 09/20/2017 Patient Education: Patient Medication [...] : L60.0 08/29/2017 Appointment: Kathleen Zuniga [address] OFFICE SURGERY 08/29/2017 Patient Education: Patient Medication Summary Completed 08/29/2017 Visit Diagnosis Plan: Actinic keratosis Discussion: Cr yotherapy as above ICD-9 : 702.0 ICD-10 : L57.0 08/01/2017 Appointment: María Elena Appiah WPtel: [address] [place] [address] OFFICE SURGERY 08/01/2017 Patient Education: Patient Medication Summary Completed 08/01/2017 Appointment: María Elena Appiah WPtel: [address] [place] [address] PATIENT THOUGHT APPOINTMENT WAS TOMORROW 07/26/17 CALLED 15 MINUTES BEFORE APPT TO SAY SHE DIDN'T HAVE ANYONE TO COVER HER BUSINESS AND WOULD NOT MAKE IT NO SHOW 07/25/2017 Visit Diagnosis Plan: Cellulitis of left toe Discussio n: Clindamycin and notify if worsening or persistis ICD-9 : 681.10 ICD-10 : L03.032 07/19/2017 Appointment: María Elena Appiah WPtel: [address] [place] [address] MEDICATION REVIEW 07/19/2017 Patient Education: Patient Medication Summary Completed 07/19/2017 Appointment: María Elena Appiah WPtel: [address] [place] [address] CANCELED 07/04/2017 Visit Diagnosis Plan: Generalized hyperhidrosis Discus ian: CBC, CMP, TSH, free T4 ordered to assess. will review labs. ICD-9 : 780.8 ICD-10 : R61 06/27/2017 Visit Diagnosis Plan: Chronic sinusitis, unspecified D iscussion: Referral sent to dr. albarado in [place] per patient request. patient has been treated multiple times for sinus infections with no recovery. patient was seen by dr sanchez in the past with no interventions. patient has deviated septum which may be affecting her sinuses. 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, including hip Discussion: Shave removal of above lesio n--sent to pathology ICD-9 : 216.7 ICD-10 : D23.72 01/24/2017 Appointment: María Elena Appiah WPtel: [address] [place], [place] [id number] 01/23 confirmed ~sl OFFICE SURGERY 01/24/2017 Patient Education: Patient Medication Summary Completed 01/24/2017 Appointment: Loan Sánchez [address] [place], [place] [id number] 01/09 rescheduled~sl RESCHEDULED 01/15/2017 Visit Diagnosis Plan: [...] L81.4 12/13/2016 Appointment: María Elena Appiah WPtel: [address] [place], [place] [id number] [place] 12/12 confirmed ~sl MEDICATION REVIEW 12/13/2016 Patient Education: Patient Medication Summary Completed 12/13/2016 Appointment: María Elena Appiah WPtel: [address] [place], [place] [id number] [place] rescheduled for 12/13/16 at 11am RESCHEDULED 0 12/06/2016 Appointment: María Elena Appiah WPtel: [address] [place], [place] [id number] [place] CANCELED 11/23/2016 Patient Education: Patient Medication [...] F51.01 11/01/2016 Appointment: María Elena Appiah WPtel: [address] [place], [place] [id number] [place] 10/31 lm `sl 11/01 lm` MEDICATION REVIEW 017 Patient Education: Patient Medication Summary Completed 11/01/2016 Referral: Canelo Overton WPtel: [address] [id number] [place] Referral Initiated 10/30/2016 Visit Diagnosis Plan: [...] Z01.419 10/17/2016 Appointment: María Elena Appiah WPtel: [address] [place], [place] [id number] 10/16 confirmed ~sl PAP 10/17/2016 Patient Education: Patient Medication Summary Completed 10/17/2016 Care Plan: MAMMOGRAM SCREENING LOINC : 2 6347-5 Pending 10/17/2016 Visit Diagnosis Plan: Other seasonal allergic rhinitis Discussion: Decadron/Garamycin Nasal Spencer Mix Too soon for steroid Retry zyrtec 10mg daily ICD-9 : 477.9 ICD-10 : J30.2 10/10/2016 Appointment: María Elena Appiah WPtel: [address] [place], [place] [id number] FOLLOW UP 10/10/2016 Patient Education: Patient Medication Summary Completed 10/10/2016 Appointment: María Elena Appiahtel: [address] [place], [place] [id number] 10/02 reschedule `sl RESCHEDULED 10/02/2016 Visit Plan: See surgery for removal of n ew left arm lesion and right foot lesion Lyrica to use next month for left arm paresthesias Continue current meds Discussed sunscreen/sunblock combo 09/19/2016 Appointment: María Elena Appiahtel: [address] [place], [place] [id number] 09/18 confirmed ~sl FOLLOW UP 09/19/2016 Patient Education: Patient Medication Summary Completed 09/19/2016 Patient Education: Patient Medication Summary Completed 09/18/2016 Care Plan: MAMMOGRAM BOTH BREASTS LOINC : 86930-5 Pending 09/18/2016 Visit Plan: Discussed that needs [...] sinuses 08/24/2016 Appointment: María Elena Appiah WPtel: [address] [place] [address] ACUTE ILLNESS 08/24/2016 Patient Education: Patient Medication Summary Completed 08/24/2016 Patient Education: Patient Medication Summary Completed 08/23/2016 Care Plan: MAMMOGRAM SCREENING [facility] : 2 6347-5 Pending 08/23/2016 Visit Plan: Finish doxycycline Add Breo 100/25 1 p BID for 2 weeks If not improving within next 2 days will get CXR 08/16/2016 Appointment: María Elena Appiah WPtel: [address] [place] [address] ACUTE ILLNESS 08/16/2016 Patient Education: Patient Medication Summary Completed 08/16/2016 Visit Plan: Supportive care. Rest, Fluid s, Tylenol/Motrin prn fever or bodyaches. Notify if worsening symptoms. Doxycyline and Prednisone 08/10/2016 Appointment: María Elena Appiah WPtel: [address] [place] [address] 08/09 lm`sl....confirmed-sp FOLLOW UP 09/2015 Patient Education: Patient Medication Summary Completed 08/10/2016 Visit Plan: Saline nasal flushes prn. Ty lenol/Motrin prn headache. Notify if persists/symptoms worsening. Dexamethasone 8mg IM today May use coricedan and mucinex 08/02/2016 Appointment: María Elena Appiah WPtel: [address] [place] [address] ACUTE ILLNESS 08/02/2016 Patient Education: Patient Medication Summary Completed 08/02/2016 Visit Plan: Cryotherapy as above and lef t forearm lesion removal as above with 5-0 punch biopsy and sent to path Return in 10 days for suture removal 08/01/2016 Appointment: María Elena Appiah WPtel: [address] [place] [address] 07/31 confirmed`~ OFFICE SURGERY 08/01/2016 Patient Education: Patient Medication Summary Completed 08/01/2016 Visit Plan: Stop clindamycin Check CBC, CMP, ESR now/STAT 07/27/2016 Appointment: María Elena Appiah WPtel: [address] [place] [address] ACUTE ILLNESS 07/27/2016 Patient Education: Patient Medication Summary Completed 07/27/2016 Visit Plan: Update lab and check ABIs to start with Will likely need cardiology evaluation to rule out PVD Clindamycin for 10 days Daily yogurt or probiotic Will return for removal of left arm lesions 07/20/2016 Appointment: María Elena Appiah WPtel: [address] [place] [address] ACUTE ILLNESS 07/20/2016 Patient Education: Patient Medication Summary Completed 07/20/2016 Patient Education: Patient Medication Summary Completed 07/20/2016 Care Plan: MAMMOGRAM BOTH BREASTS LOINC : 00755-5 Pending 07/20/2016 Care Plan: US EXAM CHEST LOINC : 69761-3 Pending 07/20/2016 Visit Plan: Wound culture collected from left great toe Appearance is somewhat staph like Rx as above Wound cleanser and skin care reviewed May need to add oral antibiotic if sores do not heal or continue to reoccur 07/06/2016 Appointment: Loan Sánchez [address] [place], [place] [phone] ACUTE ILLNESS 07/06/2016 Patient Education: Patient Medication Summary Completed 07/06/2016 Appointment: María Elena Appiah WPtel: [address] [place] [address] [place] INJECTION 05/25/2016 Patient Education: Patient Medication Summary Completed 05/25/2016 Visit Plan: Saline nasal flushes prn. Ty lenol/Motrin prn headache. Notify if persists/symptoms worsening. Dexamethasone and Rocephin given 04/26/2016 Appointment: María Elena Appiah WPtel: [address] [place] [address] ACUTE ILLNESS 04/26/2016 Patient Education: Patient Medication Summary Completed 04/26/2016 Visit Plan: Check CBC, CMP, TSH, FreeT4, HbA1C, estradiol, lipids in AM 03/02/2016 Appointment: María Elena Appiah WPtel: [address] [place] [address] 03/01 lm~sl ACUTE ILLNESS 03/02/2016 Patient Education: Patient Medication Summary Completed 03/02/2016 Visit Plan: Exam is nearly normal Needs to be taking daily antihistamine Would prefer to use oral steroids instead of shot but patient insist that oral steroids cause horrible headaches for her Will given kenalog IM instead 02/09/2016 Appointment: Loan Sánchez [address] [place] [address] ACUTE ILLNESS 02/09/2016 Patient Education: Patient Medication Summary Completed 02/09/2016 Visit Plan: Culture urine Macrobid DC xa nax Trial of Ativan 1mg q HS 01/24/2016 Appointment: María Elena Appiah WPtel: [address] [place] [address] ACUTE ILLNESS 01/24/2016 Patient Education: Patient Medication Summary Completed 01/24/2016 Visit Plan: No steroid or rocephin injec tion warranted Can have oral prednisone Continue current home regimen Needs to follow up with Dr Sanchez if problems persist 12/23/2015 Appointment: Loan Sánchez [address] [place] [address] ACUTE ILLNESS 12/23/2015 Patient Education: Patient Medication Summary Completed 12/23/2015 Visit Plan: Saline nasal flushes prn. Ty lenol/Motrin prn headache. Notify if persists/symptoms worsening. Kenalog 40mg IM today 12/08/2015 Appointment: María Elena Appiah WPtel: [address] [place] [address] 12/06 confirmed~sl ACUTE ILLNESS 12/08/2015 Patient Education: Patient Medication Summary Completed 12/08/2015 Appointment: María Elena Appiah WPtel: [address] [place] [address] ACUTE ILLNESS 11/18/2015 Patient Education: Patient Medication Summary Completed 10/11/2015 Appointment: María Elena Appiah WPtel: [address] [place], [place] [phone] [place] INJECTION 10/07/2015 Patient Education: Patient Medication Summary Completed 10/07/2015 Visit Plan: Check renal arterial doppler s and ECHO Change amlodopine to lotrel 5/20mg q HS Will need stress test as well Check CMP, uric acid, ESR 10/06/2015 Appointment: María Elena Appiah WPtel: [address] [place] [address] ACUTE ILLNESS 10/06/2015 Patient Education: Patient Medication Summary Completed 10/06/2015 Patient Education: [facility] - [employer]aving [employer] - Amlodipine Besylate - 18-64 - Dynamic Portal ID Completed 10/06/2015 Appointment: María Elena Appiah WPtel: [address] [place] [address] FOLLOW UP 09/22/2015 Visit Plan: Cephalexin 500 mg PO bid Mery ly topical Mupirocin to lesions on left lateral neck and face Follow-up in one week. Sooner if symptoms worsen 09/14/2015 Appointment: June Flores WPtel: [address] [place] [address] ACUTE ILLNESS 09/14/2015 Patient Education: Patient Medication Summary Completed 09/14/2015 Visit Plan: Change bystolic to bedtime d osing and amlodopine to morning dosing Cryotherapy as above to AKs 09/07/2015 Appointment: María Elena Appiah WPtel: [address] [place], [place] [phone] 09/06 appointment made and confirmed ~ FOLLOW UP 09/07/2015 Patient Education: Patient Medication Summary Completed 09/07/2015 Visit Plan: Increase bystolic back to 20 mg daily but will split and take 10mg in AM and 10mg in PM Stress Reducers 08/18/2015 Appointment: María Elena Appiah WPtel: [address] [place] [address] 08/17/15 appt confirmed cn ACUTE ILLNESS 08/18 Patient Education: Patient Medication Summary Completed 08/18/2015 Appointment: María Elena Appiah WPtel: [address] [place] [address] BP CHECK 07/07/2015 Patient Education: Patient Medication Summary Completed 07/07/2015 Appointment: María Elena Appiah WPtel: [address] [place] [address] BP CHECK 06/24/2015 Patient Education: Patient Medication Summary Completed 06/24/2015 Appointment: María Elena Appiah WPtel: [address] [place] [address] BP CHECK 06/21/2015 Patient Education: Patient Medication Summary Completed 06/21/2015 Visit Plan: Lab discussed Continue curre nt meds and lifestyle modification Recheck lab in 6mos 06/16/2015 Appointment: María Elena Appiah WPtel: [address] [place] [address] 06/15 confirmed FOLLOW UP 06/16/2015 Patient Education: Patient Medication Summary Completed 06/16/2015 Patient Education: Patient Medication Summary Completed 06/15/2015 Visit Plan: Increase cymbalta to 60mg q HS Keep clonidine at current dose Recheck 2weeks Change xanax to klonopin 06/02/2015 Appointment: María Elena Appiah WPtel: [address] [place] [address] 06/02 lm FOLLOW UP 06/02/2015 Patient Education: Patient Medication Summary Completed 06/02/2015 Appointment: María Elena Appiah WPtel: [address] [place] [address] ACUTE ILLNESS 05/24/2015 Visit Plan: Increase clonidine to 0.2mg q HS Add cymbalta 30mg q HS Recheck 2weeks Stress Reducers Check fasting lab Discussed sleep study 05/20/2015 Appointment: María Elena Appiahtel: [address] [place] [address] ACUTE ILLNESS 05/20/2015 Patient Education: Patient Medication Summary Completed 05/20/2015 Patient Education: [facility] - [employer] - Cymbalta - 18-64 - Dynamic Portal ID Completed 05/20/2015 Appointment: María Elena Appiah WPtel: [address] [place] [address] BP CHECK 05/19/2015 Patient Education: Patient Medication Summary Completed 05/19/2015 Visit Plan: Topical Bactroban alternatin g with topical betamethasone Recheck 2weeks 05/10/2015 Appointment: María Elena Appiah WPtel: [address] [place] [address] 05/07 vm cn...05/07 appt confirmed OFFICE SURGER Y 05/10/2015 Patient Education: Patient Medication Summary Completed 05/10/2015 [facility] [address] Referral Initiated 05/04/2015 Visit Plan: Saline nasal flushes prn. Ty lenol/Motrin prn headache. Notify if persists/symptoms worsening. Depomedrol 40mg IM today 03/16/2015 Appointment: María Elena Appiah WPtel: [address] [place] [address] ACUTE ILLNESS 03/16/2015 Patient Education: Patient Medication Summary Completed 03/16/2015 Appointment: María Elena Appiahtel: [address] [place] [address] ER Follow UP 03/09/2015 Visit Plan: Cryotherapy to lesions as ab ove 10/27/2014 Appointment: María Elena Appiah WPtel: [address] [place], [place] [id number] OFFICE SURGERY 10/27/2014 Patient Education: Patient Medication Summary Completed 10/27/2014 Appointment: June Flores WPtel: [address] [place] [address] ACUTE ILLNESS 09/11/2014 Patient Education: Patient Medication Summary Completed 09/11/2014 Visit Plan: Lab discussed Lipitor 10mg d aily Coenzyme Q-10 400mg daily Vitamin D3 5000u daily Recheck lipids with LFTs in 3mos then fwup 08/31/2014 Appointment: María Elena Appiah WPtel: [address] [place] [address] 08/28 voicegail FOLLOW UP 08/31/2014 Patient Education: Patient Medication Summary Completed 08/31/2014 Appointment: María Elena Appiah WPtel: [address] [place] [address] [place] LAB 08/27/2014 Appointment: María Elena Appiah WPtel: [address] [place] [address] [place] LAB 08/27/2014 Patient Education: Patient Medication Summary Completed 08/27/2014 Appointment: María Elena Appiah WPtel: [address] [place] [address] ACUTE ILLNESS 07/23/2014 Appointment: María Elena Appiah WPtel: [address] [place] [address] ACUTE ILLNESS 07/21/2014 Patient Education: Patient Medication Summary Completed 07/21/2014 Visit Plan: Kenalog 40mg IM today Contin ue narendra and singulair Add Flonase 07/15/2014 Appointment: María Elena Appiah WPtel: [address] [place] [address] ACUTE ILLNESS 07/15/2014 Appointment: María Elena Appiah WPtel: [address] [place], [place] [phone] ACUTE ILLNESS 07/15/2014 Patient Education: Patient Medication Summary Completed 07/15/2014 Visit Plan: Will do metolazone 2.5mg prn with 6 potassium and see if causes as severe cramping Trial of of seroquel XR 50mg q PM with evening meal and let us know how works 05/18/2014 Appointment: María Elena Appiah WPtel: [address] [place], [place] [phone] 05/15 left message FOLLOW UP 05/18/2014 Patient Education: Patient Medication Summary Completed 05/18/2014 Appointment: María Elena Appiah WPtel: [address] [place], [place] [phone] LAB 05/14/2014 Patient Education: Patient Medication Summary Completed 05/14/2014 Appointment: María Elena Appiah WPtel: [address] [place], [place] [phone] [place] INJECTION 04/22/2014 Visit Plan: Tisha and Miranda today a nd finish abx given from urgent care 04/21/2014 Appointment: María Elena Appiah WPtel: [address] [place] [phone] [place] INJECTION 04/21/2014 Patient Education: Patient Medication Summary Completed 04/21/2014 Appointment: June Flores WPtel: [address] [place], [place] [phone] ACUTE ILLNESS 03/04/2014 Patient Education: Patient Medication Summary Completed 03/04/2014 Appointment: María Elena Appiah WPtel: [address] [place], [place] [phone] [place] INJECTION 02/27/2014 Patient Education: Patient Medication Summary Completed 02/27/2014 Visit Plan: Cryotherapy as above to all lesions Patient wants to try no meds for insomnia for a while and see how goes 01/13/2014 Appointment: María Elena Appiah WPtel: [address] [place], [place] [phone] OFFICE SURGERY 01/13/2014 Patient Education: Patient Medication Summary Completed 01/13/2014 Visit Plan: Stop Melatonin Stop Soma Tri al of trazadone 75mg q HS See ENT for possible tubes as has had chronic ETD and serous otitis media with numerous steroids 12/24/2013 Appointment: María Elena Appiah WPtel: [address] [place] [address] ACUTE ILLNESS 12/24/2013 Patient Education: Patient Medication Summary Completed 12/24/2013 Visit Plan: Saline nasal flushes prn. Ty lenol/Motrin prn headache. Notify if persists/symptoms worsening. 11/12/2013 Appointment: María Elena Appiah WPtel: [address] [place] [address] ACUTE ILLNESS 11/12/2013 Patient Education: Patient Medication Summary Completed 11/12/2013 Appointment: María Elena Appiah WPtel: [address] [place] [address] ACUTE ILLNESS 10/21/2013 Patient Education: Patient Medication Summary Completed 10/21/2013 Visit Plan: Sleep hygiene and sleep rout ine Melatonin 10mg q HS Support stockings and observe 09/22/2013 Appointment: María Elena Appiah WPtel: [address] [place] [address] ACUTE ILLNESS 09/22/2013 Patient Education: Patient Medication Summary Completed 09/22/2013 Appointment: June Flores WPtel: [address] [place] [address] ACUTE ILLNESS 08/27/2013 Patient Education: Patient Medication Summary Completed 08/27/2013 Visit Plan: Proceed with CT scan of head /neck Proceed with occipital nerve injections Butrans 20mcg patch weekly until can get into see Dr. Mcdonough for injections 08/04/2013 Appointment: María Elena Appiah WPtel: [address] [place] [address] FOLLOW UP 08/04/2013 Patient Education: Patient Medication Summary Completed 08/04/2013 Visit Plan: OMT done Daily neck stretche s, moist heat Increase Celebrex to 200mg BID Add flexeril 07/23/2013 Appointment: María Elena Appiah WPtel: [address] [place] [address] 07/22 voicemail FOLLOW UP 07/23/2013 Patient Education: Patient Medication Summary Completed 07/23/2013 Appointment: María Elena Appiah WPtel: [address] [place] [address] ACUTE ILLNESS 06/23/2013 Patient Education: Patient Medication Summary Completed 06/23/2013 Appointment: María Elena Appiah WPtel: [address] [place] [address] ACUTE ILLNESS 05/26/2013 Patient Education: Patient Medication Summary Completed 05/26/2013 Visit Plan: Decrease clonidine to 0.1mg TID If BP remains stable consider decreasing amlodopine Prednisone for 5 days BP check in 1mo 04/16/2013 Appointment: María Elena Appiah WPtel: [address] [place] [address] 04/14 pt called and confirmed appt FOLLOW UP 04/16/2013 Patient Education: Patient Medication Summary Completed 04/16/2013 Appointment: María Elena Apipah WPtel: [address] [place] [address] ACUTE ILLNESS 03/05/2013 Patient Education: Patient Medication Summary Completed 03/05/2013 Visit Plan: Pt has MARIA ELENA on with Dr. Sharonda Arita Butrans patch Refill Hydrocodone early tomorrow 12/23/2012 Appointment: María Elena Appiah WPtel: [address] [place] [address] FOLLOW UP 12/23/2012 Patient Education: Patient Medication Summary Completed 12/23/2012 Appointment: Lashawn Eckert WPtel: [address] [place] [address] ACUTE ILLNESS 12/16/2012 Patient Education: Patient Medication Summary Completed 12/16/2012 Visit Plan: Proceed with updated MRI of LS spine Continue gabapentin and add soma and diclofenac Will likely need to go for another epidural 12/09/2012 Appointment: María Elena Appiah WPtel: [address] [place] [address] ACUTE ILLNESS 12/09/2012 Patient Education: Patient Medication Summary Completed 12/09/2012 Visit Plan: Injection as above Finish me drol dose pack Chiropracter this afternoon 12/04/2012 Appointment: María Elena Appiah WPtel: [address] [place] [address] ACUTE ILLNESS 12/04/2012 Patient Education: Patient Medication Summary Completed 12/04/2012 Appointment: Mary Tillman WPtel: [address] [place] [address] FOLLOW UP 11/22/2012 Patient Education: Patient Medication Summary Completed 11/22/2012 Appointment: María Elena Appiah WPtel: [address] [place] [address] ACUTE ILLNESS 11/21/2012 Patient Education: Patient Medication Summary Completed 11/21/2012 Appointment: María Elena Appiah WPtel: [address] [place] [address] BP CHECK 11/07/2012 Patient Education: Patient Medication Summary Completed 11/07/2012 Visit Plan: reports extra clonidine and extra amlodipine and extra alprazalam. extra Ketolorac and promethazine last night. Bystolic 10 mg QAM and will continue all other blood pressure meds. Pt. encouraged to rest and hydrate. Discussed stroke and CA symptoms. Pt. instructed to seek ER eval if symptoms worsen or headache persists. Pt. agrees to ER eval/EMS transport if symptoms worsen. BP re-check. 10/29/2012 Appointment: Lashawn Eckert WPtel: [address] [place] [address] ACUTE ILLNESS 10/29/2012 Patient Education: Patient Medication Summary Completed 10/29/2012 Appointment: María Elena Appiah WPtel: [address] [place], [place] [phone] ACUTE ILLNESS 10/14/2012 Patient Education: Patient Medication Summary Completed 10/14/2012 Appointment: María Elena Appiah WPtel: [address] [place], [place] [phone] UA 09/27/2012 Patient Education: Patient Medication Summary Completed 09/27/2012 Appointment: María Elena Appiah WPtel: [address] [place], [place] [phone] ACUTE ILLNESS 09/25/2012 Patient Education: Patient Medication Summary Completed 09/25/2012 Appointment: María Elena Appiah WPtel: [address] [place], [place] [phone] BP CHECK 09/24/2012 Appointment: María Elena Appiah WPtel: [address] [place], [place] [phone] ACUTE ILLNESS 08/29/2012 Patient Education: Patient Medication Summary Completed 08/29/2012 Visit Plan: Cryotherapy as above See Karlos m for right ear lesion--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 ACUTE ILLNESS 05/06/2012 Patient Education: Patient Medication Summary Completed 05/06/2012 Visit Plan: Pt wants to hold on any furt her sleep medications 04/03/2012 Appointment: María Elena Appiah WPtel: [address] [place] [address] [place] FOLLOW UP 04/03/2012 Patient Education: Patient Medication Summary Completed 04/03/2012 Appointment: María Elena Appiah WPtel: [address] [place] [address] [place] FOLLOW UP 03/19/2012 Patient Education: Patient Medication Summary Completed 03/19/2012 Appointment: María Elena Appiah WPtel: [address] [place] [address] BP CHECK 02/22/2012 Patient Education: Patient Medication Summary Completed 02/22/2012 Appointment: María Elena Appiah WPtel: [address] [place] [address] BP CHECK 02/21/2012 Patient Education: Patient Medication Summary Completed 02/21/2012 Visit Plan: Doxycycline and bactroban fo r foot Supportive care on ankles and knees Add norvasc for BP 02/20/2012 Appointment: María Elena Appiah WPtel: [address] [place] [address] ER Follow UP 02/20/2012 Patient Education: Patient Medication Summary Completed 02/20/2012 Appointment: María Elena Appiah WPtel: [address] [place] [address] ACUTE ILLNESS 01/30/2012 Patient Education: Patient Medication Summary Completed 01/30/2012 Appointment: María Elena Appiah WPtel: [address] [place] [address] ACUTE ILLNESS 01/24/2012 Patient Education: Patient Medication Summary Completed 01/24/2012 Visit Plan: Daily back stretches, moist heat, Biofreeze prn OMT done 01/10/2012 Appointment: María Elena Appiah WPtel: [address] [place] [address] ACUTE ILLNESS 01/10/2012 Patient Education: Patient Medication Summary Completed 01/10/2012 Appointment: María Elena Appiah WPtel: [address] [place] [address] FOLLOW UP 12/11/2011 Patient Education: Patient Medication Summary Completed 12/11/2011 Appointment: María Elena Appiah WPtel: [address] [place] [address] ACUTE ILLNESS 11/09/2011 Patient Education: Patient Medication Summary Completed 11/09/2011 Appointment: María Elena Appiah WPtel: [address] [place] [address] ACUTE ILLNESS 09/13/2011 Patient Education: Patient Medication Summary Completed 09/13/2011 Visit Plan: Check CBC, TSH, Free T4, CMP , ESR, Vit D, B12 now Start Prednisone today 08/31/2011 Appointment: María Elena Appiahtel: [address] [place] [address] ACUTE ILLNESS 08/31/2011 Patient Education: Patient Medication Summary Completed 08/31/2011 Appointment: María Elena Appiahtel: [address] [place] [address] [place] INJECTION 07/20/2011 Patient Education: Patient Medication Summary Completed 07/20/2011 Visit Plan: Continue current meds Monite r BP Cont stretches from PT 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 07/06/2011 Appointment: María Elena Appiahtel: [address] [place] [address] FOLLOW UP 07/06/2011 Patient Education: Patient Medication Summary Completed 07/06/2011 Appointment: María Elena Appiah WPtel: [address] [place] [address] BP CHECK 06/06/2011 Patient Education: Patient Medication Summary Completed 06/06/2011 Visit Plan: Add Bystolic at 2.5mg QAM Ad d Robaxin 750mg 2 po q HS BP check in 2wks 05/22/2011 Appointment: María Elena Appiah WPtel: [address] [place], [place] [id number] [place] FOLLOW UP 05/22/2011 Patient Education: Patient Medication Summary Completed 05/22/2011 Appointment: María Elena Appiah WPtel: [address] [place], [place] [phone] ER Follow UP 05/09/2011 Patient Education: Patient Medication Summary Completed 05/09/2011 Appointment: María Elena Appiah WPtel: [address] [place], [place] [phone] FOLLOW UP 02/22/2011 Visit Plan: Rx written for Hydrocodone 1 0/325mg #240 See Ortho 02/14/2011 Appointment: María Elena Appiah WPtel: [address] [place], [place] [phone] OMT 02/14/2011 Patient Education: Patient Medication Summary [...] lab work. 02/03/2011 Appointment: Lashawn Eckert WPtel: [address] [place], [place] [phone] ACUTE ILLNESS 02/03/2011 Patient Education: Patient Medication Summary Completed 02/03/2011 Visit Plan: OMT done Cont daily stretche s 01/31/2011 Appointment: María Elena Appiah WPtel: [address] [place], [place] [phone] ACUTE ILLNESS 01/31/2011 Patient Education: Patient Medication Summary Completed 01/31/2011 Visit Plan: Continue pain meds OMT done Proceed with PT No work this summer01/25/2011 Appointment: María Elena Appiahtel: [address] [place] [address] ACUTE ILLNESS 01/25/2011 Patient Education: Patient Medication Summary Completed 01/25/2011 Visit Plan: Start PT Long discussion abo ut getting pain meds from only us and can only have max of 4grams of tylenol per day Change to Hydrocodone 10/325mg 1- 2 po TID prn pain--#180 called to [facility] 01/18/2011 Appointment: María Elena Appiahtel: [address] [place] [address] FOLLOW UP 01/18/2011 Patient Education: Patient Medication Summary Completed 01/18/2011 Visit Plan: Daily back stretches, moist heat, Biofreeze prn 11/29/2010 Appointment: María Elena Appiahtel: [address] [place] [address] ER Follow UP 11/29/2010 Patient Education: Patient Medication Summary Completed 11/29/2010 Visit Plan: Saline nasal flushes prn. Ty lenol/Motrin prn headache. Notify if persists/symptoms worsening. Finish augmentin Add Medrol Dose Pack 10/10/2010 Appointment: María Elena Appiahtel: [address] [place], [place] [phone] ACUTE ILLNESS 10/10/2010 Patient Education: Patient Medication Summary Completed 10/10/2010 Visit Plan: Cryotherapy x3 to multiple l esions on both forearms 07/19/2010 Appointment: María Elena Appiahtel: [address] [place], [place] [phone] OFFICE SURGERY 07/19/2010 Patient Education: Patient Medication Summary Completed 07/19/2010 Appointment: María Elena Appiahtel: [address] [place], [place] [id number] BP CHECK 07/06/2010 Patient Education: Patient Medication Summary Completed 07/06/2010 Appointment: María Elena Appiah WPtel: [address] [place] [address] BP CHECK 06/30/2010 Patient Education: Patient Medication Summary Completed 06/30/2010 Appointment: María Elena Appiah WPtel: [address] [place] [address] BP CHECK 06/20/2010 Patient Education: Patient Medication Summary Completed 06/20/2010 Visit Plan: Change Diovan to Exforge 160 /5mg QD OMT done to thoracics BP check in 2wks 06/07/2010 Appointment: María Elena Appiah WPtel: [address] [place] [address] FOLLOW UP 06/07/2010 Patient Education: Patient Medication Summary Completed 06/07/2010 Appointment: María Elena Appiah WPtel: [address] [place] [address] BP CHECK 06/03/2010 Patient Education: Patient Medication Summary Completed 06/03/2010 Appointment: María Elena Appiah WPtel: [address] [place] [address] BP CHECK 06/01/2010 Patient Education: Patient Medication Summary Completed 06/01/2010 Visit Plan: Irritated skin tags to left neck x2 excised at base with scissors and base cauterized 05/30/2010 Appointment: María Elena Appiah WPtel: [address] [place] [address] OFFICE SURGERY 05/30/2010 Patient Education: Patient Medication Summary Completed 05/30/2010 Visit Plan: Saline nasal flushes prn. Ty lenol/Motrin prn headache. Notify if persists/symptoms worsening. Restart Nasonex Has allergy testing set for May 25 04/27/2010 Appointment: María Elena Appiah WPtel: [address] [place] [address] [place] ACUTE ILLNESS 04/27/2010 Patient Education: Patient Medication Summary Completed 04/27/2010 Visit Plan: Saline nasal flushes prn. Ty lenol/Motrin prn headache. Notify if persists/symptoms worsening. Omnaris BID plus injections 04/05/2010 Appointment: María Elena Appiah WPtel: [address] [place] [address] ACUTE ILLNESS 04/05/2010 Patient Education: Patient Medication Summary Completed 04/05/2010 Visit Plan: Saline nasal flushes prn. Ty lenol/Motrin prn headache. Notify if persists/symptoms worsening. 03/09/2010 Appointment: María Elena Appiah WPtel: [address] [place] [address] ACUTE ILLNESS 03/09/2010 Patient Education: Patient Medication Summary Completed 03/09/2010 Visit Plan: Cont Clonidine as is Cont Pr emarin Fwup with surgery as scheduled 03/03/2010 Appointment: María Elena Appiah WPtel: [address] [place] [address] FOLLOW UP 03/03/2010 Patient Education: Patient Medication Summary Completed 03/03/2010 Visit Plan: Check Pelvic US now Dukee tacho Sal C vs Hysterectomy 01/17/2010 Appointment: María Elena Appiahtel: [address] [place] [address] ACUTE ILLNESS 01/17/2010 Patient Education: Patient Medication Summary Completed 01/17/2010 Visit Plan: Check fasting lab and schedu le Mammogram 2gm Na Diet Trial of Ambien 10mg qhs Fwup pending lab results 12/27/2009 Appointment: María Elena Appiah WPtel: [address] [place] [address] [place] ESTABLISHED PATIENT 12/27/2009 Patient Education: Patient Medication Summary Completed 12/27/2009 Referral: Canelo Overton WPtel: [address] [place] [address] [place] Referral Initiated Referral: Philipp Flores WPtel: [address] [id number] [place] Referral Appointment Requested Instructions Comment . [...] to rest and hydrate. Discussed stroke and CA symptoms. Pt. instructed to seek ER eval [...]
--- OUTSIDE RECORDS SUMMARY | 2020-03-13 04:42 | XMS REPORT | CCD ---
Author Author Gale Appiah D.O. 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 Name Role Phone María Elena Appiah D.O., PP Unavailable CCM Unavailable Summary Purpose Interface Exchange Insurance Providers Payer name Policy type / Coverage type Covered libertarian ID Effective Begin Date Effective End Date [facility] Commercial Insurance [id number] Unknown Family History Family History data not found Social History Social History Element Codes Description Effective Dates Tobacco history SNOMED CT: [id number] Never smoker 05/22/2011 Allergies, Adverse Reactions, Alerts [...] Fill Instructions Januvia 100 mg tablet RxNorm: 981771 TAKE ONE TABLET BY MOUTH DAILY 01/22/2020 No Stop Date Active gabapentin 300 mg capsule RxNorm: 477703 TAKE ONE CAPSU LE BY MOUTH EVERY NIGHT AT BEDTIME 01/22/2020 No Stop Date Active allopurinol 300 mg tablet RxNorm: 514656 TAKE ONE TABLET BY LOPEZ TH DAILY 01/22/2020 No Stop Date Active Klor-Con 8 mEq tablet,extended release RxNorm: 348072 T FARRUKH ONE TABLET BY MOUTH TWICE A DAY 01/22/2020 No Stop Date Active doxepin 25 mg capsule RxNorm: 7071942 TAKE ONE CAPSULE B Y MOUTH EVERY NIGHT AT BEDTIME NEEDED FOR SLEEP 01/22/2020 No Stop Date Active glimepiride 4 mg tablet RxNorm: 207542 1 Tablet(s) Oral two times a day replaces 2mg dose 01/13/2020 04/12/2020 Active lisinopril 40 mg tablet RxNorm: 304563 1 Tablet(s) Oral QD repl aces 20mg dose 01/13/2020 04/12/2020 Active hydrocodone 10 mg-acetaminophen 325 mg tablet RxNorm: 899987 1-2 Tablet(s) Oral three times a day as needed for pain 01/12/2020 No Stop Date Active cyclobenzaprine 10 mg tablet RxNorm: 171887 TAKE ONE TA BLET BY MOUTH THREE TIMES A DAY NEEDED FOR MUSCLE SPASMS 01/05/2020 No Stop Date Active triamterene 75 mg-hydrochlorothiazide 50 mg tablet RxNorm: 3 87578 TAKE ONE TABLET BY MOUTH DAILY 12/29/2019 No Stop Date Active Klor-Con 8 mEq tablet,extended release RxNorm: 610899 T FARRUKH ONE TABLET BY MOUTH TWICE A DAY 12/19/2019 01/21/2020 Inactive allopurinol 300 mg tablet RxNorm: 933301 TAKE ONE TABLET BY LOPEZ TH DAILY 12/19/2019 01/21/2020 Inactive glimepiride 2 mg tablet RxNorm: 016700 TAKE ONE TABLET BY MOUTH TWICE A DAY 12/19/2019 01/12/2020 Inactive hydrocodone 10 mg-acetaminophen 325 mg tablet RxNorm: 572338 1-2 Tablet(s) Oral three times a day as needed for pain 12/10/2019 01/11/2020 Inactive Januvia 100 mg tablet RxNorm: 336097 1 Tablet(s) Oral QD 11/20/2019 0 11/20/2019 Inactive glimepiride 2 mg tablet RxNorm: 467334 1 Tablet(s) Oral two sawyer es a day 11/20/2019 12/18/2019 Inactive cyclobenzaprine 10 mg tablet RxNorm: 359736 TAKE ONE TA BLET BY MOUTH THREE TIMES A DAY NEEDED FOR MUSCLE SPASMS 11/17/2019 01/04/2020 Inactive doxepin 25 mg capsule RxNorm: 8367719 TAKE ONE CAPSULE B Y MOUTH EVERY NIGHT AT BEDTIME NEEDED FOR SLEEP 11/16/2019 01/21/2020 Inactive Klor-Con 8 mEq tablet,extended release RxNorm: 407727 T FARRUKH ONE TABLET BY MOUTH TWICE A DAY 11/16/2019 12/18/2019 Inactive hydrocodone 10 mg-acetaminophen 325 mg tablet RxNorm: 755114 1-2 Tablet(s) Oral three times a day as needed for pain 11/10/2019 12/09/2019 Inactive cyclobenzaprine 10 mg tablet RxNorm: 544495 TAKE ONE TA BLET BY MOUTH THREE TIMES A DAY NEEDED FOR MUSCLE SPASMS 10/23/2019 11/16/2019 Inactive duloxetine 60 mg capsule,delayed release RxNorm: 169253 1 Capsu le(s) Oral QD 10/17/2019 04/13/2020 Active celecoxib 200 mg capsule RxNorm: 016721 1 Capsule(s) Or al two times a day as needed for pain 10/17/2019 01/14/2020 Inactive Singulair 10 mg tablet RxNorm: 636835 1 Tablet(s) Oral QD 10/17/2019 04/14/2020 Active metoprolol tartrate 100 mg tablet RxNorm: 097093 1 Tabl et(s) Oral two times a day 10/17/2019 04/13/2020 Active clonidine HCl 0.1 mg tablet RxNorm: 758943 1 Tablet(s) Oral fou r times a day 10/17/2019 04/13/2020 Active Lipitor 10 mg tablet RxNorm: 759200 1 Tablet(s) Oral QD 10/17/2019 Inactive Steglatro 15 mg tablet RxNorm: 6280451 1 Tablet(s) Oral QD 10/17/19 No Stop Date Active lisinopril 20 mg tablet RxNorm: 718546 1 Tablet(s) Oral QD 10/17/19 20 01/12/2020 Inactive gabapentin 300 mg capsule RxNorm: 187824 1 Capsule(s) O ral every night at bedtime 10/17/2019 01/15/2020 Inactive Klor-Con 8 mEq tablet,extended release RxNorm: 455708 1 Tablet(s) Oral two times a day 10/17/2019 11/15/2019 Inactive Januvia 100 mg tablet RxNorm: 306870 1 Tablet(s) Oral QD 10/17/2019 0 01/12/2020 Inactive Glyxambi 25 mg-5 mg tablet RxNorm: 4443435 1 Tablet(s) Oral QD 01/202010/16/2019 Inactive Patient will bring in copay discount card as well Glyxambi 25 mg-5 mg tablet RxNorm: 9902904 1 Tablet(s) Oral QD 01/202010/14/2019 Inactive Patient will bring in copay discount card as well Keflex 500 mg capsule RxNorm: 104975 1 Capsule(s) Oral two time s a day 10/07/2019 10/14/2019 Inactive Premarin 1.25 mg tablet RxNorm: 227138 1 Tablet(s) Oral QD 09/30/19 20 06/25/2020 Active hydrocodone 10 mg-acetaminophen 325 mg tablet RxNorm: 815922 1-2 Tablet(s) Oral three times a day as needed for pain 09/30/2019 09/30/2019 Inactive baclofen 10 mg tablet RxNorm: 104691 TAKE ONE TABLET BY MOUTH THREE TIMES A DAY NEEDED 09/19/2019 No Stop Date Active gabapentin 300 mg capsule RxNorm: 802219 TAKE ONE CAPSU LE BY MOUTH EVERY NIGHT AT BEDTIME 09/19/2019 10/16/2019 Inactive Klor-Con 8 mEq tablet,extended release RxNorm: 113882 T FARRUKH ONE TABLET BY MOUTH TWICE A DAY 1 Tablet(s) Oral two times a day 09/19/2019 10/16/2019 Leslie ctive hydrocodone 10 mg-acetaminophen 325 mg tablet RxNorm: 258231 1-2 Tablet(s) Oral three times a day as needed for pain 09/19/2019 09/29/2019 Inactive duloxetine 60 mg capsule,delayed release RxNorm: 319944 TAKE ONE CAPSULE BY MOUTH DAILY 09/11/2019 10/16/2019 Inactive Lipitor 10 mg tablet RxNorm: 293868 TAKE ONE TABLET BY MOUTH AT BEDTIME 09/11/2019 10/16/2019 Inactive lisinopril 20 mg tablet RxNorm: 362506 TAKE ONE TABLET BY MOUTH DAILY .... THIS REPLACE 10MG TABLETS 09/11/2019 10/16/2019 Inactive triamterene 75 mg-hydrochlorothiazide 50 mg tablet RxNorm: 3 77007 TAKE ONE TABLET BY MOUTH DAILY 09/11/2019 12/28/2019 Inactive allopurinol 300 mg tablet RxNorm: 293544 TAKE ONE TABLET BY LOPEZ TH DAILY 09/11/2019 12/18/2019 Inactive celecoxib 200 mg capsule RxNorm: 096055 TAKE ONE CAPSUL E BY MOUTH TWICE A DAY NEEDED FOR PAIN 09/11/2019 10/16/2019 Inactive clonidine HCl 0.1 mg tablet RxNorm: 823272 TAKE ONE TAB LET BY MOUTH FOUR TIMES A DAY 09/11/2019 10/16/2019 Inactive doxepin 25 mg capsule RxNorm: 8542944 1 Capsule(s) Oral every night at bedtime as needed for sleep 08/21/2019 11/15/2019 Inactive hydrocodone 10 mg-acetaminophen 325 mg tablet RxNorm: 696646 1-2 Tablet(s) PO TID 08/12/2019 09/29/2019 Inactive as needed for pa in - Previous quantity #240, will start dosing for #180 in April 2011 per Doctor Td. Medrol (Dustin) 4 mg tablets in a dose pack RxNorm: 910260 Tablet(s) Oral As Directed 07/21/2019 09/29/2019 Inactive Premarin 1.25 mg tablet RxNorm: 506386 1 Tablet(s) Oral QD 07/02/2009/29/2019 Inactive hydrocodone 10 mg-acetaminophen 325 mg tablet RxNorm: 554233 1-2 Tablet(s) PO TID 07/01/2019 08/11/2019 Inactive as needed for pa in - Previous quantity #240, will start dosing for #180 in April 2011 per Doctor Appiah. gabapentin 300 mg capsule RxNorm: 166583 1 Capsule(s) PO QHS 201809/18/2019 Inactive celecoxib 200 mg capsule RxNorm: 047633 1 Capsule(s) Or al two times a day as needed for pain 06/27/2019 06/27/2019 Inactive doxepin 25 mg capsule RxNorm: 6274429 TAKE ONE CAPSULE B Y MOUTH EVERY NIGHT AT BEDTIME NEEDED FOR SLEEP 06/24/2019 08/20/2019 Inactive Singulair 10 mg tablet RxNorm: 682182 TAKE ONE TABLET BY MOUTH JOSÉ Y 06/24/2019 10/16/2019 Inactive furosemide 40 mg tablet RxNorm: 807582 TAKE ONE TABLET BY MOUTH EVERY MORNING NEEDED FOR EDEMA . TAKE WITH POTASSIUM 06/24/2019 01/12/2020 Inactive lisinopril 20 mg tablet RxNorm: 747800 TAKE ONE TABLET BY MOUTH DAILY .... THIS REPLACE 10MG TABLETS 06/24/2019 09/10/2019 Inactive nystatin-triamcinolone 100,000 unit/g-0.1 % topical cream Rx Norm: 1398417 1 Application Topical two times a day 06/12/2019 06/19/2019 Inactive apply BID for 1 week nystatin-triamcinolone 100,000 unit/g-0.1 % topical cream Rx Norm: 7524203 1 Application Topical two times a day 06/12/2019 06/11/2019 Inactive apply BID for 1 week hydrocodone 10 mg-acetaminophen 325 mg tablet RxNorm: 874333 1-2 Tablet(s) PO QID as needed for pain MUST LAST 30 DAYS 05/28/2019 06/26/2019 Inactiv e (Response to an electronic controlled substance refill request - RxReferenceNumber: [id number]) baclofen 20 mg tablet RxNorm: 220889 1 Tablet(s) PO TID as needed for muscle spasm 05/19/2019 05/27/2019 Inactive gabapentin 300 mg capsule RxNorm: 881611 1 Capsule(s) PO QHS 201805/27/2019 Inactive lisinopril 20 mg tablet RxNorm: 412068 1 Tablet(s) PO Q D TAKE ONE TABLET BY MOUTH DAILY, REPLACES 10 MG DOSE 05/19/2019 06/23/2019 Inactive doxepin 25 mg capsule RxNorm: 1663187 TAKE ONE CAPSULE B Y MOUTH EVERY NIGHT AT BEDTIME NEEDED FOR SLEEP 05/16/2019 06/14/2019 Inactive lisinopril 20 mg tablet RxNorm: 766878 TAKE ONE TABLET BY MOUTH DAILY, REPLACES 10 MG DOSE 05/16/2019 05/18/2019 Inactive Singulair 10 mg tablet RxNorm: 427940 TAKE ONE TABLET BY MOUTH JOSÉ Y 05/16/2019 06/14/2019 Inactive gabapentin 300 mg capsule RxNorm: 837371 1 Capsule(s) PO QHS 201805/04/2019 Inactive estropipate 1.5 mg tablet RxNorm: 381371 1 Tablet(s) PO QD 05/05/2005/27/2019 Inactive estropipate 1.5 mg tablet RxNorm: 371742 1 Tablet(s) PO QD 05/05/2005/04/2019 Inactive gabapentin 300 mg capsule RxNorm: 498859 1 Capsule(s) PO QHS 201805/18/2019 Inactive hydrocodone 10 mg-acetaminophen 325 mg tablet RxNorm: 671004 1-2 Tablet(s) PO QID as needed for pain MUST LAST 30 DAYS 04/25/2019 05/24/2019 Inactiv e (Response to an electronic controlled substance refill request - RxReferenceNumber: [id number]) cyclobenzaprine 10 mg tablet RxNorm: 025112 TAKE ONE TA BLET BY MOUTH THREE TIMES A DAY NEEDED FOR MUSCLE SPASMS 04/24/2019 05/18/2019 Inactive metoprolol tartrate 100 mg tablet RxNorm: 887487 TAKE O NE TABLET BY MOUTH TWICE A DAY 04/24/2019 10/16/2019 Inactive Lyrica 75 mg capsule RxNorm: 961017 1 Capsule(s) PO QHS 03/25/2019 Inactive duloxetine 60 mg capsule,delayed release RxNorm: 739644 TAKE ONE CAPSULE BY MOUTH DAILY 03/21/2019 05/19/2019 Inactive triamterene 75 mg-hydrochlorothiazide 50 mg tablet RxNorm: 3 86692 TAKE ONE TABLET BY MOUTH DAILY 03/21/2019 05/19/2019 Inactive Klor-Con 8 mEq tablet,extended release RxNorm: 356729 T FARRUKH ONE TABLET BY MOUTH TWICE A DAY 03/21/2019 09/18/2019 Inactive Lipitor 10 mg tablet RxNorm: 324125 TAKE ONE TABLET BY MOUTH AT BEDTIME 03/21/2019 09/10/2019 Inactive clonidine HCl 0.1 mg tablet RxNorm: 249292 TAKE ONE TAB LET BY MOUTH FOUR TIMES A DAY 03/21/2019 05/19/2019 Inactive allopurinol 300 mg tablet RxNorm: 182650 TAKE ONE TABLET BY LOPZE TH DAILY 03/21/2019 05/19/2019 Inactive hydrocodone 10 mg-acetaminophen 325 mg tablet RxNorm: 882568 1-2 Tablet(s) PO QID as needed for pain MUST LAST 30 DAYS 02/28/2019 03/29/2019 Inactiv e (Response to an electronic controlled substance refill request - RxReferenceNumber: [id number]) furosemide 40 mg tablet RxNorm: 466642 TAKE ONE TABLET BY MOUTH EVERY MORNING NEEDED FOR EDEMA . TAKE WITH POTASSIUM 02/21/2019 03/22/2019 Inactive cyclobenzaprine 10 mg tablet RxNorm: 243244 TAKE ONE TA BLET BY MOUTH THREE TIMES A DAY NEEDED FOR MUSCLE SPASMS 02/21/2019 04/21/2019 Inactive lisinopril 20 mg tablet RxNorm: 107396 TAKE ONE TABLET BY MOUTH DAILY, REPLACES 10 MG DOSE 02/21/2019 05/15/2019 Inactive doxepin 25 mg capsule RxNorm: 9663229 TAKE ONE CAPSULE B Y MOUTH EVERY NIGHT AT BEDTIME NEEDED FOR SLEEP 02/21/2019 05/15/2019 Inactive nystatin 100,000 unit/gram topical cream RxNorm: 707983 APPLY TO AFFECTED AREA(S) TWO TIMES A DAY 02/21/2019 03/22/2019 Inactive estradiol 1 mg tablet RxNorm: 641328 2 Tablet(s) PO QD replaces premarin 01/22/2019 05/04/2019 Inactive lisinopril 20 mg tablet RxNorm: 731912 TAKE ONE TABLET BY MOUTH DAILY, REPLACES 10 MG DOSE 01/20/2019 02/18/2019 Inactive cyclobenzaprine 10 mg tablet RxNorm: 489307 TAKE ONE TA BLET BY MOUTH THREE TIMES A DAY NEEDED FOR MUSCLE SPASMS 01/20/2019 02/18/2019 Inactive metoprolol tartrate 100 mg tablet RxNorm: 797032 TAKE O NE TABLET BY MOUTH TWICE A DAY 01/20/2019 02/18/2019 Inactive cyclobenzaprine 10 mg tablet RxNorm: 665960 TAKE ONE TA BLET BY MOUTH THREE TIMES A DAY NEEDED FOR MUSCLE SPASMS 12/19/2018 01/17/2019 Inactive lisinopril 20 mg tablet RxNorm: 444145 TAKE ONE TABLET BY MOUTH DAILY, REPLACES 10 MG DOSE 12/19/2018 01/17/2019 Inactive duloxetine 60 mg capsule,delayed release RxNorm: 940759 TAKE ONE CAPSULE BY MOUTH DAILY 12/19/2018 01/17/2019 Inactive Lipitor 10 mg tablet RxNorm: 331290 TAKE ONE TABLET BY MOUTH AT BEDTIME 12/19/2018 01/17/2019 Inactive cyclobenzaprine 10 mg tablet RxNorm: 548737 1 Tablet(s) PO TID as needed for muscle spasm 11/19/2018 12/18/2018 Inactive Singulair 10 mg tablet RxNorm: 181910 1 Tablet(s) PO QD 11/19/2018 Inactive lisinopril 20 mg tablet RxNorm: 403760 TAKE ONE TABLET BY MOUTH DAILY, REPLACES 10 MG DOSE 11/15/2018 12/18/2018 Inactive hydrocodone 10 mg-acetaminophen 325 mg tablet RxNorm: 273097 1-2 Tablet(s) PO QID as needed for pain MUST LAST 30 DAYS 11/13/2018 12/12/2018 Inactiv e (Response to an electronic controlled substance refill request - RxReferenceNumber: [id number]) nystatin 100,000 unit/gram topical cream RxNorm: 301064 APPLY TO AFFECTED AREA(S) TWO TIMES A DAY 10/23/2018 11/06/2018 Inactive lisinopril 20 mg tablet RxNorm: 651569 1 Tablet(s) PO QD replac es 10mg dose 10/18/2018 11/14/2018 Inactive hydrocodone 10 mg-acetaminophen 325 mg tablet RxNorm: 168310 1-2 Tablet(s) QID as needed for pain MUST LAST 30 DAYS 10/08/2018 11/06/2018 Inactive (Response to an electronic controlled substance refill request - RxReferenceNumber: [id number]) lisinopril 10 mg tablet RxNorm: 415130 1 Tablet(s) PO QD 10/03/2018 0 01/21/2019 Inactive Celebrex 200 mg capsule RxNorm: 501203 TAKE ONE CAPSULE BY MOUT H TWICE A DAY 09/30/2018 05/04/2019 Inactive cyclobenzaprine 10 mg tablet RxNorm: 819927 TAKE ONE TA BLET BY MOUTH THREE TIMES A DAY NEEDED FOR MUSCLE SPASMS 09/30/2018 11/18/2018 Inactive doxepin 25 mg capsule RxNorm: 7896248 TAKE ONE CAPSULE B Y MOUTH EVERY NIGHT AT BEDTIME NEEDED 09/05/2018 10/16/2018 Inactive omeprazole 40 mg capsule,delayed release RxNorm: 117322 TAKE ONE CAPSULE BY MOUTH DAILY 09/05/2018 01/21/2019 Inactive furosemide 40 mg tablet RxNorm: 871491 TAKE ONE TABLET BY MOUTH EVERY MORNING NEEDED FOR EDEMA . TAKE WITH POTASSIUM 09/05/2018 11/03/2018 Inactive phentermine 37.5 mg tablet RxNorm: 668115 1 Tablet(s) PO QAM 201701/21/2019 Inactive doxepin 25 mg capsule RxNorm: 3356395 1 Capsule(s) PO QH S as needed for sleep TAKE ONE CAPSULE BY MOUTH EVERY NIGHT AT BEDTIME NEEDED 08/27/2018 09/04/2018 Inactive Keflex 500 mg capsule RxNorm: 721634 1 Capsule(s) PO TID 08/09/2018 1 10/19/2017 Inactive Diflucan 100 mg tablet RxNorm: 731818 1 Tablet(s) PO QD 08/09/2018 Inactive Premarin 1.25 mg tablet RxNorm: 694204 2 Tablet(s) PO QD 08/09/2018 0 05/04/2019 Inactive Zofran ODT 4 mg disintegrating tablet RxNorm: 863311 1 Tablet(s) PO Q4H as needed for nausea 08/09/2018 01/21/2019 Inactive metoprolol tartrate 100 mg tablet RxNorm: 135361 TAKE O NE TABLET BY MOUTH TWICE A DAY 2018 10/04/2018 Inactive doxepin 25 mg capsule RxNorm: 6640376 TAKE ONE CAPSULE B Y MOUTH EVERY NIGHT AT BEDTIME NEEDED 2018 08/26/2018 Inactive cyclobenzaprine 10 mg tablet RxNorm: 422379 TAKE ONE TA BLET BY MOUTH THREE TIMES A DAY NEEDED FOR MUSCLE SPASMS 2018 09/29/2018 Inactive hydrocodone 10 mg-acetaminophen 325 mg tablet RxNorm: 521372 1-2 Tablet(s) QID as needed for pain MUST LAST 30 DAYS 07/29/2018 08/27/2018 Inactive (Response to an electronic controlled substance refill request - RxReferenceNumber: [id number]) nystatin 100,000 unit/gram topical powder RxNorm: 557274 Applic ation TOP BID 07/22/2018 08/04/2018 Inactive doxepin 25 mg capsule RxNorm: 8041131 1 Capsule(s) PO QHS as needed 07/22/2018 08/05/2018 Inactive triamterene 75 mg-hydrochlorothiazide 50 mg tablet RxNorm: 3 50394 TAKE ONE TABLET BY MOUTH DAILY 07/05/2018 10/02/2018 Inactive duloxetine 60 mg capsule,delayed release RxNorm: 354973 TAKE ONE CAPSULE BY MOUTH DAILY 07/05/2018 09/02/2018 Inactive Klor-Con 8 mEq tablet,extended release RxNorm: 451168 T FARRUKH ONE TABLET BY MOUTH TWICE A DAY 07/05/2018 10/02/2018 Inactive Lipitor 10 mg tablet RxNorm: 476751 TAKE ONE TABLET BY MOUTH AT BEDTIME 07/05/2018 09/02/2018 Inactive allopurinol 300 mg tablet RxNorm: 686608 TAKE ONE TABLET BY LOPEZ TH DAILY 07/05/2018 10/02/2018 Inactive clonidine HCl 0.1 mg tablet RxNorm: 247691 TAKE ONE TAB LET BY MOUTH FOUR TIMES A DAY 07/05/2018 10/02/2018 Inactive hydrocodone 10 mg-acetaminophen 325 mg tablet RxNorm: 438797 1-2 Tablet(s) QID as needed for pain MUST LAST 30 DAYS 06/28/2018 07/27/2018 Inactive (Response to an electronic controlled substance refill request - RxReferenceNumber: [id number]) MediHoney (calcium alginate-honey) 4" X 5" bandage RxNorm: 1 Application TOP QD 06/17/2018 06/26/2018 Inactive honey-hydrocolloid dressing 4" X 5" RxNorm: 1 Application TOP QD 06/17/2018 07/16/2018 Inactive furosemide 40 mg tablet RxNorm: 230892 TAKE ONE TABLET BY MOUTH EVERY MORNING NEEDED FOR EDEMA . TAKE WITH POTASSIUM 06/10/2018 07/09/2018 Inactive This is a refill request. hydrocodone 10 mg-acetaminophen 325 mg tablet RxNorm: 262746 1-2 Tablet(s) QID as needed for pain MUST LAST 30 DAYS 05/30/2018 06/27/2018 Inactive (Response to an electronic controlled substance refill request - RxReferenceNumber: [id number]) acyclovir 800 mg tablet RxNorm: 095932 1 Tablet(s) PO 5x day 201705/22/2018 Inactive Premarin 1.25 mg tablet RxNorm: 268292 1-2 Tablet(s) PO QD 05/15/20 18 07/13/2018 Inactive cyclobenzaprine 10 mg tablet RxNorm: 300360 1 Tablet(s) PO TID as needed for muscle spasm 05/09/2018 05/08/2018 Inactive Medrol (Dustin) 4 mg tablets in a dose pack RxNorm: 964959 Tablet(s) PO As Directed 05/02/2018 06/16/2018 Inactive hydrocodone 10 mg-acetaminophen 325 mg tablet RxNorm: 221938 1-2 Tablet(s) QID as needed for pain MUST LAST 30 DAYS 04/30/2018 05/29/2018 Inactive (Response to an electronic controlled substance refill request - RxReferenceNumber: [id number]) duloxetine 60 mg capsule,delayed release RxNorm: 063161 TAKE ONE CAPSULE BY MOUTH DAILY 04/16/2018 05/15/2018 Inactive Celebrex 200 mg capsule RxNorm: 868566 TAKE ONE CAPSULE BY MOUT H TWICE A DAY 04/16/2018 06/14/2018 Inactive Singulair 10 mg tablet RxNorm: 981436 TAKE ONE TABLET BY MOUTH JOSÉ Y 04/16/2018 11/19/2018 Inactive Lipitor 10 mg tablet RxNorm: 000257 TAKE ONE TABLET BY MOUTH AT BEDTIME 04/16/2018 05/15/2018 Inactive hydrocodone 10 mg-acetaminophen 325 mg tablet RxNorm: 598412 1-2 Tablet(s) QID as needed for pain MUST LAST 30 DAYS 03/29/2018 04/27/2018 Inactive (Response to an electronic controlled substance refill request - RxReferenceNumber: [id number]) cyclobenzaprine 10 mg tablet RxNorm: 214594 1 Tablet(s) PO TID as needed for muscle spasm 03/18/2018 05/09/2018 Inactive omeprazole 40 mg capsule,delayed release RxNorm: 911131 1 Capsu le(s) PO QD 02/26/2018 08/24/2018 Inactive hydrocodone 10 mg-acetaminophen 325 mg tablet RxNorm: 341591 1-2 Tablet(s) QID as needed for pain MUST LAST 30 DAYS 02/26/2018 03/27/2018 Inactive (Response to an electronic controlled substance refill request - RxReferenceNumber: [id number]) metoprolol tartrate 100 mg tablet RxNorm: 273835 1 Tablet(s) PO BID 02/18/2018 08/05/2018 Inactive Lyrica 75 mg capsule RxNorm: 104090 1 Capsule(s) PO QHS 01/30/2018 Inactive phentermine 37.5 mg tablet RxNorm: 670435 1 Tablet(s) PO QAM 201706/16/2018 Inactive hydrocodone 10 mg-acetaminophen 325 mg tablet RxNorm: 247405 1-2 Tablet(s) QID as needed for pain MUST LAST 30 DAYS 01/29/2018 02/25/2018 Inactive (Response to an electronic controlled substance refill request - RxReferenceNumber: [id number]) Klor-Con 8 mEq tablet,extended release RxNorm: 214296 1 Tablet( s) PO BID 01/14/2018 07/04/2018 Inactive allopurinol 300 mg tablet RxNorm: 907801 1 Tablet(s) PO QD 01/15/20 18 07/04/2018 Inactive Lipitor 10 mg tablet RxNorm: 407636 1 Tablet(s) PO QHS 01/14/201812/2017 Inactive triamterene 75 mg-hydrochlorothiazide 50 mg tablet RxNorm: 3 57583 1 Tablet(s) PO QD 01/14/2018 07/04/2018 Inactive hydrocodone 10 mg-acetaminophen 325 mg tablet RxNorm: 829672 1-2 Tablet(s) QID as needed for pain MUST LAST 30 DAYS 12/27/2017 01/25/2018 Inactive (Response to an electronic controlled substance refill request - RxReferenceNumber: [id number]) Onglyza 5 mg tablet RxNorm: 868040 1 Tablet(s) PO QD 12/18/201701/29 Inactive metformin 500 mg tablet RxNorm: 995138 1 Tablet(s) PO BID 12/11/2017 12/10/2017 Inactive metformin 500 mg tablet RxNorm: 875456 1 Tablet(s) PO BID 12/11/2017 12/17/2017 Inactive furosemide 40 mg tablet RxNorm: 640543 1 Tablet(s) PO Q AM prn edema--take with potassium 12/11/2017 06/08/2018 Inactive cyclobenzaprine 10 mg tablet RxNorm: 459576 1 Tablet(s) PO TID as needed for muscle spasm 12/11/2017 03/18/2018 Inactive hydrocodone 10 mg-acetaminophen 325 mg tablet RxNorm: 957872 1-2 Tablet(s) QID as needed for pain MUST LAST 30 DAYS 10/23/2017 11/21/2017 Inactive (Response to an electronic controlled substance refill request - RxReferenceNumber: [id number]) Lipitor 10 mg tablet RxNorm: 645301 1 Tablet(s) PO QHS 10/16/201703/2018 Inactive cyclobenzaprine 10 mg tablet RxNorm: 453476 1 Tablet(s) PO TID as needed for muscle spasm 10/09/2017 12/10/2017 Inactive hydroxyzine HCl 25 mg tablet RxNorm: 019025 1 Tablet(s) PO BID as needed for anxiety 09/20/2017 01/29/2018 Inactive Effexor XR 75 mg capsule,extended release RxNorm: 195477 1 Caps ule(s) PO QD 09/20/2017 01/29/2018 Inactive metoprolol tartrate 100 mg tablet RxNorm: 368474 1 Tablet(s) PO BID 08/20/2017 02/18/2018 Inactive baclofen 20 mg tablet RxNorm: 930477 1 Tablet(s) PO TID as needed for muscle spasm 08/20/2017 01/21/2019 Inactive clonidine HCl 0.1 mg tablet RxNorm: 292398 1 Tablet(s) PO QID 08/2005/16/2018 Inactive Seroquel 25 mg tablet RxNorm: 483382 1 Tablet(s) PO QHS 08/17/2017 Inactive Seroquel 25 mg tablet RxNorm: 697261 1 Tablet(s) PO QHS 08/17/2017 Inactive Diflucan 100 mg tablet RxNorm: 959213 TAKE ONE TABLET BY MOUTH JOSÉ Y 07/25/2017 08/07/2017 Inactive hydrocodone 10 mg-acetaminophen 325 mg tablet RxNorm: 953469 1-2 Tablet(s) QID as needed for pain MUST LAST 30 DAYS 07/19/2017 08/17/2017 Inactive (Response to an electronic controlled substance refill request - RxReferenceNumber: [id number]) clindamycin 300 mg capsule RxNorm: 336749 1 Capsule(s) PO TID 07/1907/28/2017 Inactive clotrimazole-betamethasone 1 %-0.05 % topical cream RxNorm: 262052 Application TOP BID to elbow rash 07/19/2017 06/16/2018 Inactive Singulair 10 mg tablet RxNorm: 624527 Tablet(s) TAKE ONE TABLET BY MOUTH DAILY 07/18/2017 04/13/2018 Inactive triamterene 75 mg-hydrochlorothiazide 50 mg tablet RxNorm: 3 04754 1 Tablet(s) PO QD 07/18/2017 01/14/2018 Inactive Celebrex 200 mg capsule RxNorm: 948838 Capsule(s) TAKE ONE CAPSULE BY MOUTH TWICE A DAY 07/18/2017 10/15/2017 Inactive hydrocodone 10 mg-acetaminophen 325 mg tablet RxNorm: 881162 1-2 Tablet(s) QID as needed for pain MUST LAST 30 DAYS 06/19/2017 07/18/2017 Inactive (Response to an electronic controlled substance refill request - RxReferenceNumber: [id number]) hydrocodone 10 mg-acetaminophen 325 mg tablet RxNorm: 332749 1-2 Tablet(s) QID as needed for pain MUST LAST 30 DAYS 06/19/2017 06/18/2017 Inactive (Response to an electronic controlled substance refill request - RxReferenceNumber: [id number]) baclofen 20 mg tablet RxNorm: 035458 1 Tablet(s) PO TID as needed for muscle spasm 06/18/2017 08/20/2017 Inactive Medrol (Dustin) 4 mg tablets in a dose pack RxNorm: 631388 Tablet(s) PO As Directed 06/05/2017 07/18/2017 Inactive omeprazole 40 mg capsule,delayed release RxNorm: 585863 1 Capsu le(s) PO QD 04/20/2017 10/16/2017 Inactive Premarin 1.25 mg tablet RxNorm: 669817 1-2 Tablet(s) PO QD 04/11/20 17 05/15/2018 Inactive duloxetine 60 mg capsule,delayed release RxNorm: 209318 1 Capsu le(s) PO QD 04/11/2017 09/19/2017 Inactive furosemide 40 mg tablet RxNorm: 046903 1 Tablet(s) PO Q AM prn edema--take with potassium 04/11/2017 12/11/2017 Inactive Klor-Con 8 mEq tablet,extended release RxNorm: 247716 1 Tablet( s) PO BID 04/11/2017 01/14/2018 Inactive Lipitor 10 mg tablet RxNorm: 482391 1 Tablet(s) PO QHS 04/11/201702/2018 Inactive amlodipine 5 mg-benazepril 20 mg capsule RxNorm: 249122 1 Capsu le(s) PO QD 04/11/2017 01/29/2018 Inactive allopurinol 300 mg tablet RxNorm: 615161 1 Tablet(s) PO QD 04/11/2001/14/2018 Inactive clonidine HCl 0.1 mg tablet RxNorm: 875486 1 Tablet(s) PO QID 04/0508/19/2017 Inactive baclofen 20 mg tablet RxNorm: 888829 1 Tablet(s) PO TID as needed for muscle spasm 04/02/2017 06/18/2017 Inactive Premarin 1.25 mg tablet RxNorm: 474040 1-2 Tablet(s) PO QD 03/20/20 17 04/10/2017 Inactive hydrocodone 10 mg-acetaminophen 325 mg tablet RxNorm: 249039 1-2 Tablet(s) QID as needed for pain MUST LAST 30 DAYS 03/14/2017 01/21/2019 Inactive (Response to an electronic controlled substance refill request - RxReferenceNumber: [id number]) metoprolol tartrate 100 mg tablet RxNorm: 688780 1 Tablet(s) PO BID 02/12/2017 08/20/2017 Inactive hydrocodone 10 mg-acetaminophen 325 mg tablet RxNorm: 103933 1-2 Tablet(s) QID as needed for pain MUST LAST 30 DAYS 02/08/2017 03/09/2017 Inactive (Response to an electronic controlled substance refill request - RxReferenceNumber: [id number]) metoprolol tartrate 100 mg tablet RxNorm: 574631 TAKE O NE TABLET BY MOUTH TWICE A DAY 01/11/2017 02/12/2017 Inactive metoprolol tartrate 100 mg tablet RxNorm: 683135 1 Tablet(s) PO BID 12/18/2016 12/17/2016 Inactive metoprolol tartrate 100 mg tablet RxNorm: 568664 1 Tablet(s) PO BID 12/18/2016 01/10/2017 Inactive furosemide 40 mg tablet RxNorm: 614657 1 Tablet(s) PO Q AM prn edema--take with potassium 12/13/2016 02/10/2017 Inactive amitriptyline 100 mg tablet RxNorm: 688384 1 Tablet(s) PO QHS 11/2812/12/2016 Inactive baclofen 20 mg tablet RxNorm: 217928 1 Tablet(s) PO TID as needed for muscle spasm 11/14/2016 04/01/2017 Inactive triamterene 75 mg-hydrochlorothiazide 50 mg tablet RxNorm: 3 81460 1 Tablet(s) PO QD 11/14/2016 11/13/2016 Inactive metolazone 2.5 mg tablet RxNorm: 952277 TAKE ONE TABLET BY MOUTH DAILY NEEDED FOR EDEMA 11/14/2016 12/12/2016 Inactive triamterene 75 mg-hydrochlorothiazide 50 mg tablet RxNorm: 3 73474 1 Tablet(s) PO QD 11/14/2016 07/18/2017 Inactive amitriptyline 50 mg tablet RxNorm: 356220 TAKE ONE TABL ET BY MOUTH AT BEDTIME NEEDED FOR SLEEP 11/14/2016 11/27/2016 Inactive Cymbalta 60 mg capsule,delayed release RxNorm: 629220 1 Capsule (s) PO QHS 11/14/2016 12/12/2016 Inactive clonidine HCl 0.1 mg tablet RxNorm: 989629 1 Tablet(s) PO QID 11/1304/04/2017 Inactive amitriptyline 50 mg tablet RxNorm: 524399 1 Tablet(s) P O QHS as needed for sleep 11/01/2016 11/27/2016 Inactive duloxetine 60 mg capsule,delayed release RxNorm: 809029 TAKE ONE CAPSULE BY MOUTH DAILY 10/20/2016 01/17/2017 Inactive allopurinol 300 mg tablet RxNorm: 009726 TAKE ONE TABLET BY LOPEZ TH DAILY 10/20/2016 01/16/2017 Inactive Lyrica 75 mg capsule RxNorm: 405296 TAKE ONE CAPSULE BY MOUTH EVERY NIGHT AT BEDTIME 10/20/2016 12/10/2016 Inactive Klor-Con 8 mEq tablet,extended release RxNorm: 230168 T FARRUKH ONE TABLET BY MOUTH TWICE A DAY 10/20/2016 01/17/2017 Inactive Celebrex 200 mg capsule RxNorm: 493417 TAKE ONE CAPSULE BY MOUT H TWICE A DAY 10/20/2016 07/18/2017 Inactive Bystolic 10 mg tablet RxNorm: 617523 TAKE ONE TABLET BY MOUTH EVERY NIGHT AT BEDTIME 10/20/2016 12/17/2016 Inactive amlodipine 5 mg-benazepril 20 mg capsule RxNorm: 361889 TAKE ONE CAPSULE BY MOUTH EVERY NIGHT AT BEDTIME -- TO REPLACE AMLODOPINE 10/20/20162016 Inactive Lipitor 10 mg tablet RxNorm: 724536 TAKE ONE TABLET BY MOUTH EVERY NIGHT AT BEDTIME 10/20/2016 01/17/2017 Inactive alprazolam 0.5 mg tablet RxNorm: 077354 3 Tablet(s) PO QHS as needed for sleep/anxiety 09/20/2016 10/31/2016 Inactive Tamiflu 75 mg capsule RxNorm: 715841 1 Capsule(s) PO QD 09/19/2016 Inactive Lyrica 75 mg capsule RxNorm: 311775 1 Capsule(s) PO QHS 09/19/2016 Inactive prednisone 20 mg tablet RxNorm: 530190 1 Tablet(s) PO QD 08/10/2016 1 10/17/2015 Inactive doxycycline hyclate 100 mg capsule RxNorm: 6853703 1 Capsule(s) PO BID 08/10/2016 08/19/2016 Inactive Medrol (Dustin) 4 mg tablets in a dose pack RxNorm: 653876 Tablet(s) PO As Directed 07/31/2016 08/22/2016 Inactive Singulair 10 mg tablet RxNorm: 178574 TAKE ONE TABLET BY MOUTH JOSÉ Y 07/27/2016 07/18/2017 Inactive hydrocodone 10 mg-acetaminophen 325 mg tablet RxNorm: 814658 1-2 Tablet(s) QID as needed for pain MUST LAST 30 DAYS 07/26/2016 08/24/2016 Inactive (Response to an electronic controlled substance refill request - RxReferenceNumber: [id number]) alprazolam 0.5 mg tablet RxNorm: 559309 3 Tablet(s) PO QHS as needed for anxiety or sleep 07/26/2016 09/20/2016 Inactive clindamycin 300 mg capsule RxNorm: 237046 1 Capsule(s) PO TID 07/2007/29/2016 Inactive Diflucan 100 mg tablet RxNorm: 884026 1 Tablet(s) PO QD 07/20/2016 Inactive Levaquin 500 mg tablet RxNorm: 103026 1 Tablet(s) PO QD 07/17/2016 Inactive Levaquin 500 mg tablet RxNorm: 710684 1 Tablet(s) PO QD 07/10/2016 Inactive Levaquin 500 mg tablet RxNorm: 471205 1 Tablet(s) PO QD 07/10/2016 Inactive mupirocin 2 % topical ointment RxNorm: 166733 TOP Apply topically to affected areas twice daily 07/06/2016 09/18/2016 Inactive Singulair 10 mg tablet RxNorm: 354563 TAKE ONE TABLET BY MOUTH JOSÉ Y 06/21/2016 01/21/2019 Inactive alprazolam 0.5 mg tablet RxNorm: 165446 TAKE THREE TABL ETS BY MOUTH AT BEDTIME NEEDED FOR SLEEP OR STRESS 05/22/2016 06/20/2016 Inactive triamterene 75 mg-hydrochlorothiazide 50 mg tablet RxNorm: 3 05550 1 Tablet(s) PO QD 04/26/2016 01/12/2020 Inactive Premarin 1.25 mg tablet RxNorm: 762095 1-2 Tablet(s) PO QD 04/26/2003/20/2017 Inactive Klor-Con 8 mEq tablet,extended release RxNorm: 074281 1 Tablet( s) PO BID 04/26/2016 10/19/2016 Inactive Celebrex 200 mg capsule RxNorm: 028530 1 Capsule(s) PO BID TAKE ONE CAPSULE BY MOUTH EVERY DAY 04/26/2016 10/19/2016 Inactive Lipitor 10 mg tablet RxNorm: 626919 1 Tablet(s) PO QHS 04/26/201605/2017 Inactive allopurinol 300 mg tablet RxNorm: 018340 1 Tablet(s) PO QD TAKE ONE TABLET BY MOUTH EVERY DAY 04/26/2016 10/19/2016 Inactive amlodipine 5 mg-benazepril 20 mg capsule RxNorm: 485798 1 Capsule(s) PO QHS replaces amlodopine 04/26/2016 10/19/2016 Inactive duloxetine 60 mg capsule,delayed release RxNorm: 797088 1 Capsu le(s) PO QD 04/26/2016 10/19/2016 Inactive Bystolic 10 mg tablet RxNorm: 584361 1 Tablet(s) PO QHS 04/26/2016 Inactive Singulair 10 mg tablet RxNorm: 445704 1 Tablet(s) PO QD TAKE ONE TABLET BY MOUTH DAILY 04/26/2016 06/20/2016 Inactive clonidine HCl 0.1 mg tablet RxNorm: 140062 1 Tablet(s) PO QID 04/2610/22/2016 Inactive hydrocodone 10 mg-acetaminophen 325 mg tablet RxNorm: 964040 1-2 Tablet(s) QID as needed for pain TAKE ONE TO TWO TABLETS BY MOUTH FOUR TIMES A DAY . MUST LAST 30 DAYS 03/31/2016 04/29/2016 Inactive (Response to an electronic controlled substance refill request - [facility] [id number]) Klor-Con 8 mEq tablet,extended release RxNorm: 543786 T FARRUKH ONE TABLET BY MOUTH TWICE A DAY 03/24/2016 09/29/2019 Inactive prednisone 20 mg tablet RxNorm: 085395 1 Tablet(s) PO QD 03/09/2016 0 03/08/2016 Inactive prednisone 20 mg tablet RxNorm: 458737 1 Tablet(s) PO QD 03/09/2016 0 03/13/2016 Inactive alprazolam 0.5 mg tablet RxNorm: 235291 3 Tablet(s) PO QHS as needed for sleep/stress 03/02/2016 01/21/2019 Inactive mupirocin 2 % topical ointment RxNorm: 990904 TOP twice daily to affected areas of face and neck 02/21/2016 04/25/2016 Inactive clonidine HCl 0.1 mg tablet RxNorm: 317642 TAKE ONE TAB LET BY MOUTH FOUR TIMES A DAY 02/15/2016 09/29/2019 Inactive clonidine HCl 0.1 mg tablet RxNorm: 801861 1 Tablet(s) PO QID 02/1404/25/2016 Inactive Premarin 1.25 mg tablet RxNorm: 246161 1-2 Tablet(s) PO QD 02/15/20 16 03/15/2016 Inactive Klor-Con 8 mEq tablet,extended release RxNorm: 176280 T FARRUKH ONE TABLET BY MOUTH TWICE A DAY 02/15/2016 03/15/2016 Inactive potassium chloride ER 20 mEq tablet,extended release(part/cr yst) RxNorm: 946253 2 Tablet(s) PO BID 02/15/2016 03/15/2016 Inactive Macrobid 100 mg capsule RxNorm: 237235 1 Capsule(s) PO BID 01/24/20 16 01/30/2016 Inactive prednisone 20 mg tablet RxNorm: 670761 Take 3tabs PO QD x 2 days, then 2 tabs PO QD x 2 days, then 1 tab PO QD x 2 days, then 1/2 tab PO QDy x 2 days 12/23/2015 04/25/2016 Inactive Klor-Con 8 mEq tablet,extended release RxNorm: 167581 T FARRUKH ONE TABLET BY MOUTH TWICE A DAY 12/20/2015 02/14/2016 Inactive alprazolam 1 mg tablet RxNorm: 867192 1 1/2 Tablet(s) PO QHS 201501/23/2016 Inactive nystatin 100,000 unit/gram topical cream RxNorm: 918289 APPLY TO AFFECTED AREA(S) TWO TIMES A DAY 11/30/2015 12/14/2015 Inactive Singulair 10 mg tablet RxNorm: 977234 TAKE ONE TABLET BY MOUTH JOSÉ Y 11/18/2015 04/25/2016 Inactive allopurinol 300 mg tablet RxNorm: 276705 1 Tablet(s) PO QD TAKE ONE TABLET BY MOUTH EVERY DAY 10/26/2015 04/22/2016 Inactive Singulair 10 mg tablet RxNorm: 980815 TAKE ONE TABLET BY MOUTH JOSÉ Y 10/26/2015 11/17/2015 Inactive duloxetine 60 mg capsule,delayed release RxNorm: 469032 1 Capsu le(s) PO QD 10/26/2015 04/22/2016 Inactive triamterene 75 mg-hydrochlorothiazide 50 mg tablet RxNorm: 3 67022 1 Tablet(s) PO QD 10/26/2015 11/14/2016 Inactive potassium chloride ER 20 mEq tablet,extended release(part/cr yst) RxNorm: 735025 2 Tablet(s) PO BID 10/26/2015 02/14/2016 Inactive Lipitor 10 mg tablet RxNorm: 409133 1 Tablet(s) PO QHS 10/26/2015 Inactive amlodipine 5 mg-benazepril 20 mg capsule RxNorm: 320949 1 Capsule(s) PO QHS replaces amlodopine 10/26/2015 04/22/2016 Inactive Bystolic 10 mg tablet RxNorm: 492446 1 Tablet(s) PO QHS 10/26/2015 Inactive amlodipine 5 mg-benazepril 20 mg capsule RxNorm: 324578 1 Capsule(s) PO QHS replaces amlodopine 10/06/2015 10/25/2015 Inactive amlodipine 5 mg tablet RxNorm: 556492 1 Tablet(s) PO QHS 09/30/2015 0 04/25/2016 Inactive metolazone 2.5 mg tablet RxNorm: 115991 TAKE ONE TABLET BY MOUTH DAILY NEEDED FOR EDEMA 09/30/2015 01/21/2019 Inactive duloxetine 60 mg capsule,delayed release RxNorm: 924187 1 Capsu le(s) PO QD 09/30/2015 10/25/2015 Inactive cephalexin 500 mg capsule RxNorm: 369485 1 Capsule(s) PO BID 201509/23/2015 Inactive mupirocin 2 % topical ointment RxNorm: 744924 TOP twice daily to affected areas of face and neck 09/14/2015 02/20/2016 Inactive baclofen 20 mg tablet RxNorm: 497591 1 Tablet(s) PO TID as needed for muscle spasm 09/01/2015 11/14/2016 Inactive clonidine HCl 0.1 mg tablet RxNorm: 010250 1 Tablet(s) PO QID 09/0102/14/2016 Inactive alprazolam 1 mg tablet RxNorm: 774921 1 1/2 Tablet(s) PO QHS 201409/09/2015 Inactive baclofen 20 mg tablet RxNorm: 317603 1 Tablet(s) PO TID as needed for muscle spasm 07/23/2015 09/01/2015 Inactive omeprazole 40 mg capsule,delayed release RxNorm: 016181 1 Capsu le(s) PO QD 07/23/2015 04/25/2016 Inactive alprazolam 1 mg tablet RxNorm: 460209 1 1/2 Tablet(s) PO QHS 201408/10/2015 Inactive Bystolic 10 mg tablet RxNorm: 209557 1 Tablet(s) PO BID 06/24/2015 Inactive allopurinol 300 mg tablet RxNorm: 380062 1 Tablet(s) PO QD TAKE ONE TABLET BY MOUTH EVERY DAY 06/23/2015 10/20/2015 Inactive alprazolam 1 mg tablet RxNorm: 618161 1 1/2 Tablet(s) PO QHS 201407/06/2015 Inactive clonidine HCl 0.1 mg tablet RxNorm: 101528 1 Tablet(s) PO QID 06/0209/01/2015 Inactive clonidine HCl 0.1 mg tablet RxNorm: 614803 1 Tablet(s) PO QID 06/0206/01/2015 Inactive Cymbalta 60 mg capsule,delayed release RxNorm: 570318 1 Capsule (s) PO QHS 06/02/2015 08/30/2015 Inactive Cymbalta 60 mg capsule,delayed release RxNorm: 151571 1 Capsule (s) PO QHS 06/02/2015 06/01/2015 Inactive clonidine HCl 0.1 mg tablet RxNorm: 102531 1 Tablet(s) PO TID 05/3106/01/2015 Inactive replaces 0.2mg dose metolazone 2.5 mg tablet RxNorm: 456761 TAKE ONE TABLET BY MOUTH DAILY NEEDED FOR EDEMA 05/21/2015 06/19/2015 Inactive Singulair 10 mg tablet RxNorm: 711859 TAKE ONE TABLET BY MOUTH JOSÉ Y 05/21/2015 10/17/2015 Inactive Cymbalta 30 mg capsule,delayed release RxNorm: 472510 1 Capsule (s) PO QHS 05/20/2015 11/14/2016 Inactive betamethasone valerate 0.1 % topical cream RxNorm: 976980 Appli cation TOP BID 05/10/2015 04/25/2016 Inactive Bactroban 2 % topical ointment RxNorm: 054716 Application TOP BID 0 05/10/2015 06/20/2015 Inactive baclofen 20 mg tablet RxNorm: 402445 1 Tablet(s) PO TID as needed 0 04/26/2015 07/23/2015 Inactive Lipitor 10 mg tablet RxNorm: 222068 1 Tablet(s) PO QHS 04/26/201508/2016 Inactive clonidine HCl 0.1 mg tablet RxNorm: 957200 1 Tablet(s) PO TID 04/2605/30/2015 Inactive replaces 0.2mg dose Klor-Con 8 mEq tablet,extended release RxNorm: 598626 1 Tablet( s) PO BID 04/26/2015 04/25/2016 Inactive metolazone 2.5 mg tablet RxNorm: 301838 1 Tablet(s) PO QD as ne eded for edema 04/26/2015 04/25/2015 Inactive triamterene 75 mg-hydrochlorothiazide 50 mg tablet RxNorm: 3 19307 1 Tablet(s) PO QD 04/26/2015 10/22/2015 Inactive Premarin 1.25 mg tablet RxNorm: 537695 1-2 Tablet(s) PO QD 04/26/20 15 10/22/2015 Inactive Bystolic 10 mg tablet RxNorm: 211480 1 Tablet(s) PO QAM TAKE ONE TABLET BY MOUTH EVERY MORNING 04/23/2015 06/23/2015 Inactive clonidine HCl 0.1 mg tablet RxNorm: 070541 1 Tablet(s) PO TID 03/2304/25/2015 Inactive replaces 0.2mg dose nystatin 100,000 unit/gram topical cream RxNorm: 550927 Applica tion TOP BID 03/23/2015 06/20/2015 Inactive baclofen 20 mg tablet RxNorm: 208408 1 Tablet(s) PO TID as needed 0 03/23/2015 04/25/2015 Inactive Premarin 1.25 mg tablet RxNorm: 413995 1-2 Tablet(s) PO QD 03/23/20 15 04/25/2015 Inactive Klor-Con 8 mEq tablet,extended release RxNorm: 237910 1 Tablet( s) PO BID 03/23/2015 04/25/2015 Inactive cefdinir 300 mg capsule RxNorm: 282485 2 Capsule(s) PO QD 03/16/2015 03/25/2015 Inactive baclofen 20 mg tablet RxNorm: 772146 1 Tablet(s) PO TID as needed 0 03/02/2015 03/22/2015 Inactive allopurinol 300 mg tablet RxNorm: 439202 1 Tablet(s) PO QD TAKE ONE TABLET BY MOUTH EVERY DAY 02/22/2015 05/22/2015 Inactive Klor-Con M20 mEq tablet,extended release RxNorm: 944256 2 Tablet(s) PO BID to use with lasix 02/22/2015 06/20/2015 Inactive clonidine HCl 0.1 mg tablet RxNorm: 386384 1 Tablet(s) PO TID 02/1903/22/2015 Inactive replaces 0.2mg dose Lipitor 10 mg tablet RxNorm: 823941 1 Tablet(s) PO QHS 01/20/201506/2015 Inactive Lipitor 10 mg tablet RxNorm: 066676 1 Tablet(s) PO QHS 01/20/2015 Inactive Singulair 10 mg tablet RxNorm: 419910 1 Tablet(s) PO QD TAKE ONE TABLET BY MOUTH EVERY DAY 11/20/2014 05/18/2015 Inactive Lipitor 10 mg tablet RxNorm: 640888 1 Tablet(s) PO QHS 11/20/201408/2015 Inactive allopurinol 300 mg tablet RxNorm: 571649 1 Tablet(s) PO QD TAKE ONE TABLET BY MOUTH EVERY DAY 11/20/2014 02/16/2015 Inactive Bystolic 10 mg tablet RxNorm: 308263 1 Tablet(s) PO QAM TAKE ONE TABLET BY MOUTH EVERY MORNING 11/20/2014 04/22/2015 Inactive Klor-Con 8 mEq tablet,extended release RxNorm: 507346 1 Tablet( s) PO BID 11/20/2014 02/17/2015 Inactive baclofen 20 mg tablet RxNorm: 561384 1 Tablet(s) PO TID as needed 0 11/20/2014 01/21/2019 Inactive baclofen 20 mg tablet RxNorm: 085093 1 Tablet(s) PO TID as needed 0 10/27/2014 11/19/2014 Inactive baclofen 20 mg tablet RxNorm: 543051 1 Tablet(s) PO TID as needed 0 10/26/2014 03/01/2015 Inactive allopurinol 300 mg tablet RxNorm: 494247 1 Tablet(s) PO QD TAKE ONE TABLET BY MOUTH EVERY DAY 10/26/2014 11/20/2014 Inactive Bystolic 10 mg tablet RxNorm: 080475 1 Tablet(s) PO QAM TAKE ONE TABLET BY MOUTH EVERY MORNING 10/26/2014 11/20/2014 Inactive clonidine HCl 0.1 mg tablet RxNorm: 534502 1 Tablet(s) PO TID 09/2805/27/2019 Inactive replaces 0.2mg dose clonidine HCl 0.1 mg tablet RxNorm: 967594 1 Tablet(s) PO TID 09/2802/18/2015 Inactive replaces 0.2mg dose baclofen 20 mg tablet RxNorm: 759584 1 Tablet(s) PO TID as needed 1 11/01/2013 08/30/2014 Inactive Lipitor 10 mg tablet RxNorm: 414030 1 Tablet(s) PO QHS 08/31/2014 Inactive baclofen 20 mg tablet RxNorm: 703135 1 Tablet(s) PO TID as needed 1 11/01/2013 10/26/2014 Inactive triamterene 75 mg-hydrochlorothiazide 50 mg tablet RxNorm: 3 01967 1 Tablet(s) PO QD 08/31/2014 02/26/2015 Inactive Klor-Con 8 mEq tablet,extended release RxNorm: 759383 1 Tablet( s) PO BID 08/31/2014 11/20/2014 Inactive baclofen 20 mg tablet RxNorm: 826994 1 Tablet(s) PO TID as needed 1 09/30/2013 10/25/2014 Inactive baclofen 20 mg tablet RxNorm: 974793 1 Tablet(s) PO TID as needed 1 09/30/2013 08/31/2014 Inactive omeprazole 40 mg capsule,delayed release RxNorm: 745918 1 Capsu le(s) PO QD 07/21/2014 07/23/2015 Inactive Flonase 50 mcg/actuation nasal spray,suspension RxNorm: 8963 23 1 [place] NASAL BID 07/15/2014 04/09/2017 Inactive hydrocodone 10 mg-acetaminophen 325 mg tablet RxNorm: 664895 1-2 Tablet(s) QID as needed for pain TAKE ONE TO TWO TABLETS BY MOUTH FOUR TIMES A DAY . MUST LAST 30 DAYS 06/30/2014 07/27/2014 Inactive (Response to an electronic controlled substance refill request - RxReferenceNumber: [id number]) baclofen 20 mg tablet RxNorm: 282287 1 Tablet(s) PO TID as needed 1 07/31/2014 Inactive Singulair 10 mg tablet RxNorm: 880036 1 Tablet(s) PO QD TAKE ONE TABLET BY MOUTH EVERY DAY 05/25/2014 11/20/2014 Inactive Bystolic 10 mg tablet RxNorm: 444811 TAKE ONE TABLET BY MOUTH E VERY MORNING 05/25/2014 09/21/2014 Inactive allopurinol 300 mg tablet RxNorm: 411189 1 Tablet(s) PO QD TAKE ONE TABLET BY MOUTH EVERY DAY 05/25/2014 10/21/2014 Inactive baclofen 20 mg tablet RxNorm: 306807 1 Tablet(s) PO TID as needed 0 05/25/2014 06/29/2014 Inactive allopurinol 300 mg tablet RxNorm: 132593 TAKE ONE TABLET BY LOPEZ TH EVERY DAY 05/25/2014 09/21/2014 Inactive Singulair 10 mg tablet RxNorm: 123149 1 Tablet(s) PO QD TAKE ONE TABLET BY MOUTH EVERY DAY 05/25/2014 05/24/2014 Inactive Bystolic 10 mg tablet RxNorm: 078026 1 Tablet(s) PO QAM TAKE ONE TABLET BY MOUTH EVERY MORNING 05/25/2014 10/21/2014 Inactive metolazone 2.5 mg tablet RxNorm: 805622 1 Tablet(s) PO QD as ne eded for edema 05/18/2014 04/25/2015 Inactive Lasix 40 mg tablet RxNorm: 346590 1 Tablet(s) PO QAM s hould take potassium supplementation with this medication 05/14/2014 05/17/2014 Inactive hydrocodone 10 mg-acetaminophen 325 mg tablet RxNorm: 954362 1-2 Tablet(s) QID as needed for pain TAKE ONE TO TWO TABLETS BY MOUTH FOUR TIMES A DAY . MUST LAST 30 DAYS 05/07/2014 06/05/2014 Inactive (Response to an electronic controlled substance refill request - RxReferenceNumber: [id number]) alprazolam 0.5 mg tablet RxNorm: 284511 TAKE ONE TABLET BY MOUTH TWICE A DAY , MUST LAST 30 DAYS 05/07/2014 05/22/2016 Inactive (Response to a n electronic controlled substance refill request - RxReferenceNumber: [id number]) diclofenac sodium 75 mg tablet,delayed release RxNorm: 22081 6 1 Tablet(s) PO BID for pain 04/24/2014 07/20/2014 Inactive Celebrex 200 mg capsule RxNorm: 151457 TAKE ONE CAPSULE BY MOUT H EVERY DAY 04/24/2014 07/20/2014 Inactive alprazolam 0.5 mg tablet RxNorm: 999974 TAKE ONE TABLET BY MOUTH TWICE A DAY , MUST LAST 30 DAYS 03/24/2014 04/22/2014 Inactive (Response to a n electronic controlled substance refill request - RxReferenceNumber: [id number]) diclofenac sodium 75 mg tablet,delayed release RxNorm: 52352 6 1 Tablet(s) PO BID for pain 03/24/2014 04/24/2014 Inactive clonidine HCl 0.1 mg tablet RxNorm: 123485 1 Tablet(s) PO TID 03/2409/28/2014 Inactive replaces 0.2mg dose Klor-Con 8 mEq tablet,extended release RxNorm: 191927 1 Tablet( s) PO BID 02/26/2014 08/31/2014 Inactive diclofenac sodium 75 mg tablet,delayed release RxNorm: 52541 6 1 Tablet(s) PO BID for pain 02/25/2014 03/24/2014 Inactive hydrocodone 10 mg-acetaminophen 325 mg tablet RxNorm: 467262 1-2 Tablet(s) QID as needed for pain TAKE ONE TO TWO TABLETS BY MOUTH FOUR TIMES A DAY . MUST LAST 30 DAYS 02/25/2014 03/26/2014 Inactive (Response to an electronic controlled substance refill request - RxReferenceNumber: [id number]) alprazolam 0.5 mg tablet RxNorm: 322053 Tablet(s) PO BI D as needed for anxiety TAKE ONE TABLET BY MOUTH TWICE A DAY , MUST LAST 30 DAYS 02/25/2014 Inactive (Response to an electronic controlled [place] bstance refill request - RxReferenceNumber: [id number]) [AttnRPh: Saving apply/adjudicate RxGRP:SG20 RxBIN:[id number] RxN: ID#:[id number]] alprazolam 0.5 mg tablet RxNorm: 645957 Tablet(s) TAKE ONE TABLET BY MOUTH TWICE A DAY , MUST LAST 30 DAYS 01/27/2014 02/24/2014 Inactive (Respo nse to an electronic controlled substance refill request - RxReferenceNumber: [id number]) [AttnRPh: Saving apply/adjudicate RxGRP:SG20 RxBIN:[id number] RxPCN: ID#:[id number]] hydrocodone 10 mg-acetaminophen 325 mg tablet RxNorm: 492887 1-2 Tablet(s) QID as needed for pain TAKE ONE TO TWO TABLETS BY MOUTH FOUR TIMES A DAY . MUST LAST 30 DAYS 01/27/2014 02/24/2014 Inactive (Response to an electronic controlled substance refill request - RxReferenceNumber: [id number]) alprazolam 0.5 mg tablet RxNorm: 178616 TAKE ONE TABLET BY MOUTH TWICE A DAY , MUST LAST 30 DAYS 01/27/2014 01/26/2014 Inactive (Response to a n electronic controlled substance refill request - RxReferenceNumber: [id number]) Premarin 1.25 mg tablet RxNorm: 296383 1-2 Tablet(s) PO QD 01/28/20 14 07/25/2014 Inactive alprazolam 0.5 mg tablet RxNorm: 549391 TAKE ONE TABLET BY MOUTH TWICE A DAY , MUST LAST 30 DAYS 01/27/2014 01/27/2014 Inactive (Response to a n electronic controlled substance refill request - RxReferenceNumber: [id number]) hydrocodone 10 mg-acetaminophen 325 mg tablet RxNorm: 045617 TAKE ONE TO TWO TABLETS BY MOUTH FOUR TIMES A DAY . MUST LAST 30 DAYS 01/27/20142013 Inactive (Response to an electronic controlled [place] bstance refill request - RxReferenceNumber: [id number]) Celebrex 200 mg capsule RxNorm: 364579 1 Capsule(s) PO QD TAKE ONE CAPSULE BY MOUTH EVERY DAY 12/29/2013 04/27/2014 Inactive hydrocodone 10 mg-acetaminophen 325 mg tablet RxNorm: 348727 1-2 Tablet(s) PO QID as needed for severe pain 12/29/2013 01/27/2014 Inactive allopurinol 300 mg tablet RxNorm: 803914 1 Tablet(s) PO QD TAKE ONE TABLET BY MOUTH EVERY DAY 12/29/2013 05/24/2014 Inactive alprazolam 0.5 mg tablet RxNorm: 107191 TAKE ONE TABLET BY MOUTH TWICE A DAY , MUST LAST 30 DAYS 12/29/2013 01/27/2014 Inactive (Response to a n electronic controlled substance refill request - RxReferenceNumber: [id number]) Celebrex 200 mg capsule RxNorm: 801881 1 Capsule(s) PO QD TAKE ONE CAPSULE BY MOUTH EVERY DAY 12/29/2013 12/29/2013 Inactive Bystolic 10 mg tablet RxNorm: 667727 1 Tablet(s) PO QAM TAKE ONE TABLET BY MOUTH EVERY MORNING 12/29/2013 05/24/2014 Inactive Bystolic 10 mg tablet RxNorm: 698503 1 Tablet(s) PO QAM TAKE ONE TABLET BY MOUTH EVERY MORNING 12/29/2013 12/29/2013 Inactive Singulair 10 mg tablet RxNorm: 426718 1 Tablet(s) PO QD TAKE ONE TABLET BY MOUTH EVERY DAY 12/29/2013 05/25/2014 Inactive hydrocodone 10 mg-acetaminophen 325 mg tablet RxNorm: 162396 TAKE ONE TO TWO TABLETS BY MOUTH FOUR TIMES A DAY . MUST LAST 30 DAYS 12/29/20132013 Inactive (Response to an electronic controlled [place] bstance refill request - RxReferenceNumber: [id number]) Trazadone 75mg Tablet RxNorm: 1 Tablet(s) PO QHS as needed 03/23/2014 Inactive Trazadone 75mg Tablet RxNorm: 1 Tablet(s) PO QHS 12/24/20132014 Inactive Soma 350 mg tablet RxNorm: 069998 Tablet(s) PO TAKE ON E TABLET BY MOUTH THREE TIMES A DAY NEEDED FOR MUSCLE SPASMS. THIS MUST LAST 30 DAYS BETWEEN REFILLS. 12/10/2013 12/22/2013 Inactive (Appended: Cont rolled substance eRx refill - RxReferenceNumber: [id number]) diclofenac sodium 75 mg tablet,delayed release RxNorm: 85344 6 1 Tablet(s) PO BID for pain 12/10/2013 02/24/2014 Inactive allopurinol 300 mg tablet RxNorm: 073512 1 Tablet(s) PO QD 11/20/19 14 12/29/2013 Inactive alprazolam 0.5 mg tablet RxNorm: 761706 2 Tablet(s) PO BID 11/13/19 14 12/29/2013 Inactive prn clonidine 0.1 mg tablet RxNorm: 949730 1 Tablet(s) PO TID 11/12/2013 02/09/2014 Inactive replaces 0.2mg dose Klor-Con M20 mEq tablet,extended release RxNorm: 152928 2 Tablet(s) PO BID to use with lasix 11/12/2013 05/10/2014 Inactive Singulair 10 mg tablet RxNorm: 307904 1 Tablet(s) PO QD 11/12/2013 Inactive hydrocodone 10 mg-acetaminophen 325 mg tablet RxNorm: 043268 1-2 Tablet(s) PO QID as needed for severe pain 11/12/2013 12/28/2013 Inactive Bystolic 10 mg tablet RxNorm: 027040 1 Tablet(s) PO QAM 11/12/2013 Inactive Soma 350 mg tablet RxNorm: 232457 Tablet(s) PO TAKE ON E TABLET BY MOUTH THREE TIMES A DAY NEEDED FOR MUSCLE SPASMS. THIS MUST LAST 30 DAYS BETWEEN REFILLS. 10/13/2013 12/10/2013 Inactive (Appended: Cont rolled substance eRx refill - RxReferenceNumber: [id number]) hydrocodone 10 mg-acetaminophen 325 mg tablet RxNorm: 037918 1-2 Tablet(s) PO QID as needed for severe pain 10/03/2013 11/11/2013 Inactive diclofenac sodium 75 mg tablet,delayed release RxNorm: 67514 8 1 Tablet(s) PO BID for pain 09/11/2013 12/10/2013 Inactive alprazolam 0.5 mg tablet RxNorm: 702121 1 Tablet(s) PO BID May refill on 04/26/13 09/01/2013 10/30/2013 Inactive prn hydrocodone 10 mg-acetaminophen 325 mg tablet RxNorm: 269092 1-2 Tablet(s) PO QID as needed for severe pain 09/01/2013 10/02/2013 Inactive triamterene 75 mg-hydrochlorothiazide 50 mg tablet RxNorm: 3 22600 1 Tablet(s) PO QD 08/04/2013 08/31/2014 Inactive cyclobenzaprine 10 mg tablet RxNorm: 546923 1 Tablet(s) PO TID prn spasm 08/04/2013 08/13/2013 Inactive clonidine 0.1 mg tablet RxNorm: 648193 1 Tablet(s) PO TID 08/04/2013 11/11/2013 Inactive replaces 0.2mg dose cyclobenzaprine 10 mg tablet RxNorm: 249314 1 Tablet(s) PO TID prn spasm 07/23/2013 08/01/2013 Inactive hydrocodone 10 mg-acetaminophen 325 mg tablet RxNorm: 474744 2 1-2 Tablet(s) PO QID as needed for severe pain 06/09/2013 08/07/2013 Inactive Singulair 10 mg tablet RxNorm: 499065 1 Tablet(s) PO QD 05/29/2013 Inactive Klor-Con 8 mEq tablet,extended release RxNorm: 569147 1 Tablet( s) PO BID 05/29/2013 02/26/2014 Inactive allopurinol 300 mg tablet RxNorm: 410179 1 Tablet(s) PO QD 05/29/20 13 11/19/2013 Inactive Bystolic 10 mg tablet RxNorm: 095145 1 Tablet(s) PO QAM take one daily in the morning. 05/29/2013 11/11/2013 Inactive scopolamine 1.5 mg 72 hr Transderm Patch RxNorm: 429256 Application TD Q72H for motion sickness 05/26/2013 07/22/2013 Inactive Soma 350 mg tablet RxNorm: 719123 1 Tablet(s) PO TID as needed for spasm 05/19/2013 10/13/2013 Inactive diclofenac sodium 75 mg tablet,delayed release RxNorm: 79979 8 1 Tablet(s) PO BID for pain 05/14/2013 07/22/2013 Inactive allopurinol 300 mg tablet RxNorm: 530962 1 Tablet(s) PO QD 04/25/20 13 05/28/2013 Inactive alprazolam 0.5 mg tablet RxNorm: 377358 1 Tablet(s) PO BID May refill on 04/26/13 04/25/2013 06/23/2013 Inactive prn Celebrex 200 mg capsule RxNorm: 689607 1 Capsule(s) PO QD 04/16/2013 12/29/2013 Inactive alprazolam 0.5 mg tablet RxNorm: 430192 1 Tablet(s) PO BID May refill on 04/26/13 04/16/2013 04/24/2013 Inactive prn Soma 350 mg tablet RxNorm: 706769 1 Tablet(s) PO TID as needed for spasm 04/16/2013 No Stop Date Active Lasix 40 mg tablet RxNorm: 701693 1 Tablet(s) PO QAM s hould take potassium supplementation with this medication 04/16/2013 06/14/2013 Inactive clonidine 0.1 mg tablet RxNorm: 592106 1 Tablet(s) PO TID 04/16/2013 08/03/2013 Inactive replaces 0.2mg dose prednisone 20 mg tablet RxNorm: 892951 1 Tablet(s) PO BID 04/16/2013 04/20/2013 Inactive diclofenac sodium 75 mg tablet,delayed release RxNorm: 19005 8 1 Tablet(s) PO BID for pain 04/14/2013 05/13/2013 Inactive hydrocodone 10 mg-acetaminophen 325 mg tablet RxNorm: 091167 2 1-2 Tablet(s) PO QID as needed for severe pain 04/14/2013 No Stop Date Active Lasix 40 mg tablet RxNorm: 282841 1 Tablet(s) PO QAM s hould take potassium supplementation with this medication 03/31/2013 04/15/2013 Inactive Celebrex 200 mg capsule RxNorm: 935822 1 Capsule(s) PO QD 03/31/2013 04/15/2013 Inactive alprazolam 0.5 mg tablet RxNorm: 202584 1 Tablet(s) PO BID 03/28/20 13 04/15/2013 Inactive prn hydrocodone 10 mg-acetaminophen 325 mg tablet RxNorm: 322323 2 1-2 Tablet(s) PO QID as needed for severe pain 03/10/2013 No Stop Date Active metformin ER 500 mg 24 hr tablet,extended release RxNorm: 86 1018 1 Tablet(s) PO QD 03/06/2013 07/22/2013 Inactive clindamycin 300 mg capsule RxNorm: 216970 2 Capsule(s) PO TID 03/0503/14/2013 Inactive Zaroxolyn 2.5 mg tablet RxNorm: 667645 1 Tablet(s) PO QAM 03/05/2013 05/19/2015 Inactive amlodipine 10 mg tablet RxNorm: 352383 1 Tablet(s) PO QD 03/03/2013 0 05/25/2013 Inactive Norvasc 10 mg tablet RxNorm: 068207 1 Tablet(s) PO QD 02/28/201307/11 Inactive Celebrex 200 mg capsule RxNorm: 849203 1 Capsule(s) PO QD 02/28/2013 03/30/2013 Inactive diclofenac sodium 75 mg tablet,delayed release RxNorm: 99658 8 1 Tablet(s) PO BID for pain 02/14/2013 03/15/2013 Inactive Soma 350 mg tablet RxNorm: 816203 1 Tablet(s) PO TID as needed for spasm 02/14/2013 No Stop Date Active hydrocodone 10 mg-acetaminophen 325 mg tablet RxNorm: 032507 2 1-2 Tablet(s) PO QID as needed for severe pain 02/14/2013 No Stop Date Active Norvasc 10 mg tablet RxNorm: 288715 1 Tablet(s) PO QD 02/10/201302/09 Inactive Celebrex 200 mg capsule RxNorm: 074954 1 Capsule(s) PO QD 01/27/2013 01/26/2013 Inactive Premarin 1.25 mg tablet RxNorm: 182282 1-2 Tablet(s) PO QD 01/28/20 13 06/25/2013 Inactive alprazolam 0.5 mg tablet RxNorm: 074736 1 Tablet(s) PO BID 01/28/20 13 02/25/2013 Inactive prn amlodipine 5 mg tablet RxNorm: 930545 1 Tablet(s) PO QD 01/27/2013 Inactive Celebrex 200 mg capsule RxNorm: 405588 1 Capsule(s) PO QD 01/27/2013 02/27/2013 Inactive gabapentin 600 mg tablet RxNorm: 647987 1 Tablet(s) PO QHS 01/16/20 13 07/22/2013 Inactive Soma 350 mg tablet RxNorm: 420289 1 Tablet(s) PO TID as needed for spasm 01/15/2013 No Stop Date Active hydrocodone 10 mg-acetaminophen 325 mg tablet RxNorm: 041880 2 1-2 Tablet(s) PO QID as needed for severe pain 01/15/2013 No Stop Date Active Soma 350 mg tablet RxNorm: 896431 1 Tablet(s) PO TID as needed for spasm 01/13/2013 No Stop Date Active alprazolam 0.5 mg tablet RxNorm: 450387 1 Tablet(s) PO BID 12/31/19 13 01/26/2013 Inactive prn diclofenac sodium 75 mg tablet,delayed release RxNorm: 76278 8 1 Tablet(s) PO BID for pain 12/09/2012 01/07/2013 Inactive gabapentin 600 mg tablet RxNorm: 619029 1 Tablet(s) PO QHS 12/10/19 13 01/07/2013 Inactive hydrocodone 10 mg-acetaminophen 325 mg tablet RxNorm: 063848 2 1-2 Tablet(s) PO QID as needed for severe pain 12/02/2012 No Stop Date Active Levaquin 750 mg tablet RxNorm: 794205 1 Tablet(s) PO QD 11/21/2012 Inactive Singulair 10 mg tablet RxNorm: 799230 1 Tablet(s) PO QD 11/11/2012 Inactive clonidine 0.2 mg tablet RxNorm: 124995 1 Tablet(s) PO TID 11/11/2012 04/15/2013 Inactive alprazolam 0.5 mg tablet RxNorm: 215095 1 Tablet(s) PO BID 11/12/19 13 12/10/2012 Inactive prn Klor-Con 8 mEq tablet,extended release RxNorm: 450126 1 Tablet( s) PO BID 11/11/2012 03/04/2013 Inactive hydrocodone 10 mg-acetaminophen 325 mg tablet RxNorm: 616077 2 1-2 Tablet(s) PO QID as needed for severe pain 11/06/2012 No Stop Date Active alprazolam 0.5 mg tablet RxNorm: 709628 1 Tablet(s) PO BID 10/15/19 13 11/10/2012 Inactive prn hydrocodone-acetaminophen 10 mg-325 mg tablet RxNorm: 191883 2 1-2 Tablet(s) PO QID as needed for severe pain 10/10/2012 10/09/2012 Inactive allopurinol 300 mg tablet RxNorm: 525797 1 Tablet(s) PO QD 09/20/19 13 12/18/2012 Inactive alprazolam 0.5 mg tablet RxNorm: 799022 1 Tablet(s) PO BID 09/17/19 13 10/14/2012 Inactive prn hydrocodone-acetaminophen 10 mg-325 mg tablet RxNorm: 132250 2 1-2 Tablet(s) PO QID as needed for severe pain 08/22/2012 08/21/2012 Inactive Norvasc 10 mg tablet RxNorm: 593640 1 Tablet(s) PO QD 08/12/201201/10 Inactive Premarin 1.25 mg tablet RxNorm: 141109 1-2 Tablet(s) PO QD 07/30/20 12 12/26/2012 Inactive alprazolam 0.5 mg tablet RxNorm: 779822 1 Tablet(s) PO BID 07/29/20 12 08/27/2012 Inactive prn Klor-Con 8 mEq tablet,extended release RxNorm: 482241 1 Tablet( s) PO BID 07/29/2012 11/10/2012 Inactive hydrocodone-acetaminophen 10 mg-325 mg tablet RxNorm: 480931 2 1-2 Tablet(s) PO QID as needed for severe pain 07/29/2012 No Stop Date Active Premarin 1.25 mg tablet RxNorm: 836827 1-2 Tablet(s) PO QD 07/29/20 12 07/29/2012 Inactive clonidine 0.2 mg tablet RxNorm: 865946 1 Tablet(s) PO TID 07/29/2012 10/28/2012 Inactive ketorolac 10 mg tablet RxNorm: 108147 1 Tablet(s) PO QID prn he adache 07/18/2012 No Stop Date Active hydrocodone-acetaminophen 10 mg-325 mg tablet RxNorm: 533652 2 1-2 Tablet(s) PO QID as needed for severe pain 07/03/2012 No Stop Date Active amlodipine 5 mg tablet RxNorm: 378183 1 Tablet(s) PO QD 07/02/2012 Inactive allopurinol 300 mg tablet RxNorm: 723309 1 Tablet(s) PO QD 07/02/2009/19/2012 Inactive Celebrex 200 mg capsule RxNorm: 425114 1 Capsule(s) PO QD for j oint pain 06/26/2012 10/23/2012 Inactive diclofenac sodium 75 mg tablet,delayed release RxNorm: 98781 8 1 Tablet(s) PO BID for pain 06/19/2012 09/16/2012 Inactive hydrocodone-acetaminophen 10 mg-325 mg tablet RxNorm: 272571 2 1-2 Tablet(s) PO QID as needed for severe pain 06/10/2012 No Stop Date Active alprazolam 0.5 mg tablet RxNorm: 654380 1 Tablet(s) PO BID 06/03/20 12 07/02/2012 Inactive prn ketorolac 10 mg tablet RxNorm: 341505 1 Tablet(s) PO Q8H 05/27/2012 0 01/21/2019 Inactive as needed for headache hydrocodone-acetaminophen 10 mg-325 mg tablet RxNorm: 065703 2 1-2 Tablet(s) PO QID as needed for severe pain 05/15/2012 No Stop Date Active allopurinol 300 mg tablet RxNorm: 724316 1 Tablet(s) PO QD 05/14/20 12 06/12/2012 Inactive allopurinol 300 mg tablet RxNorm: 914216 1 Tablet(s) PO QD 05/14/20 12 05/13/2012 Inactive amlodipine 5 mg tablet RxNorm: 829915 1 Tablet(s) PO QD 05/01/2012 Inactive amlodipine 5 mg Tab RxNorm: 681007 1 Tablet(s) PO QD 05/01/201204/30 Inactive Celebrex 200 mg capsule RxNorm: 790096 1 Capsule(s) PO QD for j oint pain 05/01/2012 06/25/2012 Inactive Singulair 10 mg tablet RxNorm: 361358 1 Tablet(s) PO QD 05/01/2012 Inactive alprazolam 0.5 mg tablet RxNorm: 528799 1 Tablet(s) PO BID 05/01/2005/30/2012 Inactive prn Celebrex 200 mg Cap RxNorm: 417410 1 Capsule(s) PO QD for joint radu n 05/01/2012 04/30/2012 Inactive hydrocodone-acetaminophen 10 mg-325 mg tablet RxNorm: 107943 2 1-2 Tablet(s) PO QID as needed for severe pain 04/19/2012 No Stop Date Active Lasix 40 mg tablet RxNorm: 708167 1 Tablet(s) PO RAZA ramirez take potassium supplementation with this medication 04/05/2012 06/03/2012 Inactive alprazolam 0.5 mg Tab RxNorm: 951462 1 Tablet(s) PO BID 04/05/2012 Inactive prn hydrocodone-acetaminophen 10 mg-325 mg Tab RxNorm: 3149808 1-2 Tablet(s) PO QID as needed for severe pain 03/25/2012 03/24/2012 Inactive clonidine 0.2 mg Tab RxNorm: 238315 1 Tablet(s) PO TID 03/08/2012 Inactive alprazolam 0.5 mg Tab RxNorm: 535614 1 Tablet(s) PO BID 03/08/2012 Inactive prn Soma 350 mg tablet RxNorm: 299904 1 Tablet(s) PO TID for spasm 02/0903/18/2012 Inactive clonidine 0.2 mg tablet RxNorm: 162116 1 Tablet(s) PO TID 03/08/2012 07/28/2012 Inactive Celebrex 200 mg Cap RxNorm: 231584 1 Capsule(s) PO QD for joint radu n 03/01/2012 04/29/2012 Inactive amlodipine 5 mg Tab RxNorm: 852405 1 Tablet(s) PO QD 02/26/201202/24 Inactive amlodipine 5 mg Tab RxNorm: 086262 1 Tablet(s) PO QD 02/26/201204/25 Inactive Bactroban 2 % Ointment RxNorm: 968171 Application TOP QID to sores 02/23/2012 No Stop Date Active amlodipine 2.5 mg tablet RxNorm: 386098 1 Tablet(s) PO QHS 02/20/20 12 02/25/2012 Inactive doxycycline hyclate 100 mg Cap RxNorm: 0882318 1 Capsule(s) PO BID 02/20/2012 02/29/2012 Inactive hydrocodone-acetaminophen 10 mg-325 mg Tab RxNorm: 7761270 1-2 T ablet(s) PO QID 02/08/2012 No Stop Date Active alprazolam 0.5 mg Tab RxNorm: 127225 1 Tablet(s) PO BID 02/08/2012 Inactive prn Singulair 10 mg Tab RxNorm: 821827 1 Tablet(s) PO QD 02/08/201204/30 Inactive Soma 350 mg Tab RxNorm: 201452 1 Tablet(s) PO TID for spasm 012 03/07/2012 Inactive Soma 350 mg Tab RxNorm: 312595 1 Tablet(s) PO TID for spasm 012 02/05/2012 Inactive diclofenac sodium 75 mg tablet,delayed release RxNorm: 54315 8 1 Tablet(s) PO BID for pain 02/01/2012 03/18/2012 Inactive Celebrex 200 mg Cap RxNorm: 474379 1 Capsule(s) PO QD for joint radu n 01/30/2012 02/28/2012 Inactive Lasix 40 mg Tab RxNorm: 427145 1 Tablet(s) PO QAM 01/24/2012 03/18/20 12 Inactive potassium chloride ER 20 mEq tablet,extended release(part/cr yst) RxNorm: 887576 2 Tablet(s) PO BID 01/24/2012 02/22/2012 Inactive alprazolam 0.5 mg Tab RxNorm: 532468 1 Tablet(s) PO BID 01/11/2012 Inactive prn hydrocodone-acetaminophen 10 mg-325 mg Tab RxNorm: 3158529 1-2 T ablet(s) PO QID 01/11/2012 No Stop Date Active Ambien 10 mg Tab RxNorm: 290459 1 Tablet(s) PO QHS 01/11/2012 012 Inactive Klor-Con 8 mEq Tab RxNorm: 098078 1 Tablet(s) PO BID 01/11/201201/22 Inactive diclofenac sodium 75 mg Tab, Delayed Release RxNorm: 561848 1 Tablet(s) PO BID for pain 01/10/2012 01/31/2012 Inactive Ambien 10 mg Tab RxNorm: 917922 1 Tablet(s) PO QHS 12/11/2011 012 Inactive alprazolam 0.5 mg Tab RxNorm: 305173 1 Tablet(s) PO BID 12/11/2011 Inactive prn hydrocodone 10 mg-acetaminophen 325 mg tablet RxNorm: 944834 1-2 Tablet(s) PO TID 11/28/2011 No Stop Date Active as needed for pa in - Previous quantity #240, will start dosing for #180 in April 2011 per Doctor Td. Ambien 10 mg Tab RxNorm: 044257 1 Tablet(s) PO QHS 11/09/2011 012 Inactive alprazolam 0.5 mg Tab RxNorm: 199782 1 Tablet(s) PO BID 11/09/2011 Inactive prn hydrocodone-acetaminophen 10 mg-325 mg Tab RxNorm: 4432686 1-2 T ablet(s) PO TID 11/06/2011 No Stop Date Active as needed for pain - Previous quantity #240, will start dosing for #180 in April 2011 per Doctor Td. Singulair 10 mg Tab RxNorm: 551074 1 Tablet(s) PO QD 10/13/201110/12 Inactive Singulair 10 mg Tab RxNorm: 501630 1 Tablet(s) PO QD 10/13/201102/06 Inactive hydrocodone-acetaminophen 10 mg-325 mg Tab RxNorm: 5133632 1-2 T ablet(s) PO TID 10/10/2011 10/09/2011 Inactive as needed for pain - Previous quantity #240, will start dosing for #180 in April 2011 per Doctor Td. hydrocodone-acetaminophen 10 mg-325 mg Tab RxNorm: 9631740 1-2 T ablet(s) PO TID 10/09/2011 No Stop Date Active as needed for pain - Previous quantity #240, will start dosing for #180 in April 2011 per Doctor Td. Klor-Con 8 mEq Tab RxNorm: 750580 1 Tablet(s) PO BID 10/02/201101/09 Inactive triamterene 75 mg-hydrochlorothiazide 50 mg tablet RxNorm: 3 11499 1 Tablet(s) PO QD 09/14/2011 03/06/2013 Inactive Ambien 10 mg Tab RxNorm: 215811 1 Tablet(s) PO QHS 09/14/2011 012 Inactive hydrocodone-acetaminophen 10 mg-325 mg Tab RxNorm: 5235216 1-2 T ablet(s) PO TID 09/14/2011 No Stop Date Active as needed for pain - Previous quantity #240, will start dosing for #180 in April 2011 per Doctor Td. alprazolam 0.5 mg Tab RxNorm: 543163 1 Tablet(s) PO BID 09/14/2011 Inactive prn Zithromax 500 mg Tab RxNorm: 169444 1 Tablet(s) PO QD 09/13/201109/10 Inactive prednisone 20 mg Tab RxNorm: 024277 1 Tablet(s) PO BID 08/31/2011 Inactive Ambien 10 mg Tab RxNorm: 203629 1 Tablet(s) PO QHS 08/17/2011 011 Inactive hydrocodone-acetaminophen 10 mg-325 mg Tab RxNorm: 8946290 1-2 T ablet(s) PO TID 08/17/2011 No Stop Date Active as needed for pain - Previous quantity #240, will start dosing for #180 in April 2011 per Doctor Td. clonidine 0.2 mg Tab RxNorm: 371269 1 Tablet(s) PO TID 08/17/201112/2011 Inactive Ambien 10 mg Tab RxNorm: 682170 1 Tablet(s) PO QHS 08/17/2011 019 Inactive alprazolam 0.5 mg Tab RxNorm: 975347 1 Tablet(s) PO BID 08/17/2011 Inactive prn hydrocodone-acetaminophen 10 mg-325 mg Tab RxNorm: 5906349 1-2 T ablet(s) PO TID 08/17/2011 08/16/2011 Inactive as needed for pain - Previous quantity #240, will start dosing for #180 in April 2011 per Doctor Td. Singulair 10 mg Tab RxNorm: 554114 1 Tablet(s) PO QD 08/17/201108/16 Inactive Klor-Con 8 mEq Tab RxNorm: 918231 1 Tablet(s) PO QD 08/17/20112011 Inactive alprazolam 0.5 mg Tab RxNorm: 160659 1 Tablet(s) PO BID 07/20/2011 Inactive prn Ambien 10 mg Tab RxNorm: 474326 1 Tablet(s) PO QHS 07/20/2011 012 Inactive Singulair 10 mg Tab RxNorm: 303420 1 Tablet(s) PO QD 07/20/201107/19 Inactive Premarin 1.25 mg tablet RxNorm: 335117 2 Tablet(s) PO QD 07/20/2011 0 01/21/2019 Inactive Premarin 1.25 mg tablet RxNorm: 850818 1-2 Tablet(s) PO QD 07/20/20 11 12/16/2011 Inactive Premarin 1.25 mg Tab RxNorm: 261624 1-2 Tablet(s) PO QD 07/06/2011 Inactive alprazolam 0.5 mg Tab RxNorm: 503235 1 Tablet(s) PO BID 06/22/2011 Inactive prn alprazolam 0.5 mg Tab RxNorm: 190855 1 Tablet(s) PO BID 06/22/2011 Inactive prn Premarin 1.25 mg Tab RxNorm: 710232 1 Tablet(s) PO QD m ay do 90 day fill if desired 06/22/2011 07/05/2011 Inactive hydrocodone-acetaminophen 10 mg-325 mg Tab RxNorm: 8867751 1-2 T ablet(s) PO TID 06/22/2011 No Stop Date Active as needed for pain - Previous quantity #240, will start dosing for #180 in April 2011 per Doctor Td. clonidine 0.2 mg Tab RxNorm: 315297 1 Tablet(s) PO TID 05/25/201103/2011 Inactive triamterene-hydrochlorothiazide 75 mg-50 mg Tab RxNorm: 3108 18 1 Tablet(s) PO QD 05/25/2011 09/13/2011 Inactive alprazolam 0.5 mg Tab RxNorm: 925951 1 Tablet(s) PO BID 05/25/2011 Inactive prn hydrocodone-acetaminophen 10 mg-325 mg Tab RxNorm: 5876907 1-2 T ablet(s) PO TID 05/25/2011 No Stop Date Active as needed for pain - Previous quantity #240, will start dosing for #180 in April 2011 per Doctor Td. Robaxin-750 750 mg Tab RxNorm: 933796 2 Tablet(s) PO QHS 05/22/2011 1 Inactive prn spasm hydrocodone-acetaminophen 10 mg-325 mg Tab RxNorm: 6923045 1-2 T ablet(s) PO TID 04/26/2011 No Stop Date Active as needed for pain - Previous quantity #240, will start dosing for #180 in April 2011 per Doctor Td. alprazolam 0.5 mg Tab RxNorm: 252798 1 Tablet(s) PO BID 04/25/2011 Inactive prn Klor-Con 8 mEq Tab RxNorm: 000580 1 Tablet(s) PO QD 03/30/20112010 Inactive Klor-Con 8 mEq Tab RxNorm: 690799 1 Tablet(s) PO QD 03/29/20112010 Inactive hydrocodone-acetaminophen 10 mg-325 mg Tab RxNorm: 4362067 1-2 T ablet(s) PO TID 03/20/2011 04/25/2011 Inactive as needed for pain - Previous quantity #240, will start dosing for #180 in April 2011 per Doctor Td. alprazolam 0.5 mg Tab RxNorm: 754446 1 Tablet(s) PO BID prn 011 03/30/2011 Inactive Ambien 10 mg Tab RxNorm: 903984 1 Tablet(s) PO QHS 03/01/2011 011 Inactive cyclobenzaprine 10 mg Tab RxNorm: 872572 1 Tablet(s) PO TID 011 03/18/2012 Inactive cyclobenzaprine 10 mg Tab RxNorm: 125731 1 Tablet(s) PO TID 011 01/08/2011 Inactive cyclobenzaprine 10 mg Tab RxNorm: 321438 1 Tablet(s) PO TID 011 12/20/2010 Inactive terbinafine 250 mg Tab RxNorm: 862830 1 Tablet(s) PO QD 12/12/2010 Inactive triamterene-hydrochlorothiazide 75 mg-50 mg Tab RxNorm: 3108 18 1 Tablet(s) PO QD 12/07/2010 01/12/2020 Inactive Klor-Con 8 8 mEq Tab RxNorm: 569952 1 Tablet(s) PO QD 12/07/201001/08 Inactive Premarin 1.25 mg Tab RxNorm: 521729 2 Tablet(s) PO QD 12/07/201001/08 Inactive clonidine 0.2 mg Tab RxNorm: 889858 1 Tablet(s) PO TID 12/07/2010 Inactive hydrocodone-acetaminophen 7.5 mg-650 mg Tab RxNorm: 619459 1 Ta blet(s) PO Q4H 12/05/2010 01/21/2019 Inactive hydrocodone-acetaminophen 7.5 mg-650 mg Tab RxNorm: 349553 1 Ta blet(s) PO Q4H 10/26/2010 11/14/2010 Inactive hydrocodone-acetaminophen 7.5 mg-650 mg Tab RxNorm: 842831 1 Ta blet(s) PO Q4H 10/13/2010 10/25/2010 Inactive hydrocodone-acetaminophen 7.5 mg-650 mg Tab RxNorm: 368725 1 Ta blet(s) PO Q4H 09/15/2010 09/12/2010 Inactive alprazolam 0.5 mg Tab RxNorm: 835603 1 Tablet(s) PO BID prn 011 09/12/2010 Inactive terbinafine 250 mg Tab RxNorm: 315646 1 Tablet(s) PO QD 09/05/2010 Inactive hydrocodone-acetaminophen 7.5 mg-650 mg Tab RxNorm: 186314 1 Ta blet(s) PO Q4H 08/29/2010 09/17/2010 Inactive alprazolam 0.5 mg Tab RxNorm: 793145 1 Tablet(s) PO BID prn 010 09/27/2010 Inactive alprazolam 0.5 mg Tab RxNorm: 007841 1 Tablet(s) PO BID prn 010 09/06/2010 Inactive Klor-Con 8 mEq Tab RxNorm: 983881 1 Tablet(s) PO QD 08/08/20102010 Inactive hydrocodone-acetaminophen 7.5 mg-650 mg Tab RxNorm: 741125 1 Ta blet(s) PO Q4H 08/08/2010 08/27/2010 Inactive Ambien 10 mg Tab RxNorm: 880636 1 Tablet(s) PO QHS 08/08/2010 Inactive clonidine 0.2 mg Tab RxNorm: 956097 1 Tablet(s) PO TID 08/08/2010 Inactive Premarin 1.25 mg Tab RxNorm: 700533 2 Tablet(s) PO QD 08/08/201009/12 Inactive Ambien 10 mg Tab RxNorm: 697631 1 Tablet(s) PO QHS 07/18/2010 Inactive alprazolam 0.5 mg Tab RxNorm: 252255 1 Tablet(s) PO BID prn 010 08/07/2010 Inactive hydrocodone-acetaminophen 7.5 mg-650 mg Tab RxNorm: 843374 1 Ta blet(s) PO Q4H 07/12/2010 07/31/2010 Inactive clonidine 0.2 mg Tab RxNorm: 298436 1 Tablet(s) PO TID 06/20/2010 Inactive terbinafine 250 mg Tab RxNorm: 922839 1 Tablet(s) PO QD 05/24/2010 Inactive Clonidine 0.2 mg Tab RxNorm: 283760 1 Tablet(s) PO TID 05/24/201006/2010 Inactive Ambien 10 mg Tab RxNorm: 861311 1 Tablet(s) PO QHS 05/24/2010 010 Inactive alprazolam 0.5 mg Tab RxNorm: 479099 1 Tablet(s) PO BID 05/24/2010 Inactive Klor-Con 8 mEq Tab RxNorm: 188514 1 Tablet(s) PO QD 05/24/20102009 Inactive alprazolam 0.5 mg Tab RxNorm: 308897 2 Tablet(s) PO QD prn 05/24/2007/17/2010 Inactive triamterene-hydrochlorothiazide 75 mg-50 mg Tab RxNorm: 3108 18 1 Tablet(s) PO QD 05/24/2010 11/19/2010 Inactive Ambien 10 mg Tab RxNorm: 150839 1 Tablet(s) PO QHS 05/23/2010 010 Inactive Alprazolam 0.5 mg Tab RxNorm: 854010 2 Tablet(s) PO QD prn 05/23/20 10 05/23/2010 Inactive Premarin 1.25 mg Tab RxNorm: 409274 2 Tablet(s) PO QD 05/19/201007/12 Inactive Hydrocodone-Acetaminophen 7.5 mg-650 mg Tab RxNorm: 415711 1 Ta blet(s) PO Q4H 05/19/2010 03/20/2011 Inactive Prednisone 20 mg Tab RxNorm: 230001 1 Tablet(s) PO BID 05/17/2010 Inactive Prednisone 20 mg Tab RxNorm: 806705 1 Tablet(s) PO BID 05/06/201001/2010 Inactive Premarin 1.25 mg Tab RxNorm: 170090 Tablet(s) PO 2 -W-, and 1 Iu-Lm-Fav-Sun 05/05/2010 08/02/2010 Inactive Premarin 1.25 mg Tab RxNorm: 248039 Tablet(s) PO 2 M-W-F, and 1 Gl-Mx-Yqh-Sun 05/04/2010 05/04/2010 Inactive Premarin 1.25 mg Tab RxNorm: 887682 Tablet(s) PO 2 M-W-F, and 1 Vz-Dk-Nqs-Sun 05/04/2010 05/03/2010 Inactive Prednisone 20 mg Tab RxNorm: 988672 1 Tablet(s) PO BID 04/27/2010 Inactive Alprazolam 0.5 mg Tab RxNorm: 936328 2 Tablet(s) PO QD prn 04/26/20 10 05/22/2010 Inactive Clindamycin 300 mg Cap RxNorm: 926553 2 Capsule(s) PO TID 04/05/2010 04/18/2010 Inactive Terbinafine 250 mg Tab RxNorm: 411419 1 Tablet(s) PO QD 04/04/2010 Inactive Hydrocodone-Acetaminophen 7.5 mg-650 mg Tab RxNorm: 624543 1 Ta blet(s) PO Q4H 03/30/2010 04/18/2010 Inactive Avelox 400 mg Tab RxNorm: 158771 1 Tablet(s) PO QD 03/09/2010 010 Inactive Hydrocodone-Acetaminophen 7.5 mg-650 mg Tab RxNorm: 713165 1 Ta blet(s) PO Q4H 03/08/2010 03/27/2010 Inactive Alprazolam 0.5 mg Tab RxNorm: 260002 2 Tablet(s) PO QD prn 03/08/20 10 04/25/2010 Inactive Klor-Con 8 mEq Tab RxNorm: 683768 1 Tablet(s) PO QD when takes lasi x 03/07/2010 09/29/2019 Inactive Premarin 1.25 mg Tab RxNorm: 520503 1 Tablet(s) PO QD 03/03/201003/11 Inactive Alprazolam 0.5 mg Tab RxNorm: 550794 1 Tablet(s) PO BID PRN 010 No Stop Date Active triamterene-hydrochlorothiazide 75 mg-50 mg Tab RxNorm: 3108 18 1 Tablet(s) PO QD 02/09/2010 02/03/2011 Inactive Hydrocodone-Acetaminophen 10 mg-750 mg Tab RxNorm: 418473 1 Tablet(s) PO Q4H PRN 02/09/2010 03/20/2011 Inactive Clonidine 0.2 mg Tab RxNorm: 262828 1 Tablet(s) PO TID 01/13/201009/2009 Inactive Alprazolam 0.5 mg Tab RxNorm: 650130 1 Tablet(s) PO BID PRN 010 01/12/2010 Inactive Hydrocodone-Acetaminophen 10 mg-750 mg Tab RxNorm: 775054 1 Tablet(s) PO Q4H PRN 01/13/2010 01/12/2010 Inactive ANGELIQ 1 mg-0.5 mg Tab RxNorm: 7336101 1 Tablet(s) PO QD 12/27/2009 01/23/2010 Inactive Lasix 40 mg Tab RxNorm: 606059 1 Tablet(s) PO QAM 12/14/2009 06/11/20 10 Inactive Vitamin B12 1000mcg Tablet RxNorm: 1 Tablet(s) PO QD No Start Date Active cyclobenzaprine 10 mg tablet RxNorm: 909373 1 Tablet(s) PO TID as needed DO NOT USE WITH BACLOFEN No Start Date Active Vitamin D 5,000 unit Tab RxNorm: 1 Tablet(s) PO QD No Start Date Active vitamin E (dl, acetate) 400 unit Cap RxNorm: 101126 1 Capsule(s ) PO QD No Start Date Active Benadryl 25 mg Cap RxNorm: 8630646 Capsule(s) PO PRN No Start Date Inactive amitriptyline 100 mg tablet RxNorm: 297389 1 Tablet(s) PO QHS No St art Date 11/27/2016 Inactive Zithromax Z-Dustin 250 mg tablet RxNorm: 194807 Tablet(s) PO as di rected No Start Date 07/22/2013 Inactive Klor-Con 8 mEq tablet,extended release RxNorm: 492355 1 Tablet( s) PO BID No Start Date 07/28/2012 Inactive scopolamine 1.5 mg 72 hr Transderm Patch RxNorm: 270920 Application TD Q72H for motion sickness No Start Date 05/25/2013 Inactive Klonopin 1 mg tablet RxNorm: 525246 1-2 Tablet(s) PO QHS as nee ded for sleep No Start Date 06/20/2015 Inactive Klor-Con M20 mEq tablet,extended release RxNorm: 890463 2 Tablet(s) PO BID to use with lasix No Start Date 11/11/2013 Inactive Bystolic 5 mg tablet RxNorm: 061556 1 Tablet(s) PO QD No Start Date 1 Inactive Bystolic 10 mg tablet RxNorm: 462729 1 Tablet(s) PO BID No Start Da te 07/06/2015 Inactive Premarin 1.25 mg Tab RxNorm: 196170 Tablet(s) PO 2 -, and 1 -Sun No Start Date 05/03/2010 Inactive baclofen 20 mg tablet RxNorm: 867020 1 Tablet(s) PO TID as needed for muscle spasm No Start Date 07/22/2015 Inactive hydrocodone-acetaminophen 7.5 mg-650 mg Tab RxNorm: 128295 1 Tablet(s) PO Q4H as needed for pain No Start Date 03/20/2011 Inactive albuterol sulfate 1.25 mg/3 mL Neb Solution RxNorm: 184573 1 Unit Dose INH Q4H 2boxes No Start Date 09/06/2015 Inactive Butrans 20 mcg/hour Transderm Patch RxNorm: 982862 1 TD WEEKLY apply to skin weekly after removing previous. No Start Date 07/22/2013 Inactive Medrol (Dustin) 4 mg tablets in a dose pack RxNorm: 066366 Tablet(s) PO As Directed No Start Date 07/30/2016 Inactive hydrocodone-acetaminophen 10 mg-325 mg Tab RxNorm: 0531539 1-2 Tablet(s) PO TID as needed for pain No Start Date 03/19/2011 Inactive Klonopin 1 mg tablet RxNorm: 054259 1 Tablet(s) PO QHS No Start Date 02/28/2016 Inactive honey topical RxNorm: topical No Start Date 06/16/2018 Inactive Clonidine 0.2 mg Tab RxNorm: 077311 1 Tablet(s) PO TID No Start Date 01/12/2010 Inactive ketorolac 10 mg tablet RxNorm: 046598 1 Tablet(s) PO Q8H No Start D ate 03/18/2012 Inactive as needed for headache Singulair 10 mg Tab RxNorm: 452711 1 Tablet(s) PO QD No Start Date Inactive Premarin 1.25 mg Tab RxNorm: 688445 1 Tablet(s) PO QD No Start Date 1 Inactive Flonase 50 mcg/Actuation Nasal [place] RxNorm: 9077706 1 [place] BID No Start Date 03/18/2012 Inactive Terbinafine 250 mg Tab RxNorm: 483109 1 Tablet(s) PO QD No Start Da te 04/03/2010 Inactive Fexofenadine 180 mg Tab RxNorm: 9668154 1 Tablet(s) PO QD No Start Date 09/06/2015 Inactive baclofen 20 mg tablet RxNorm: 336109 1 Tablet(s) PO TID as needed N o Start Date 05/25/2014 Inactive Diovan 160 mg Tab RxNorm: 130930 1 Tablet(s) PO QD No Start Date 09/12 Inactive mupirocin 2 % topical ointment RxNorm: 076142 1 Application TOP QID No Start Date 04/25/2016 Inactive ZOFRAN ODT 4 mg Tab, Rapid Dissolve RxNorm: 692744 1 Tablet(s) PO Q4H No Start Date 03/18/2012 Inactive as needed for nausea and vomiting Alprazolam 0.5 mg Tab RxNorm: 325154 1 Tablet(s) PO BID PRN No Star t Date 01/12/2010 Inactive cyclobenzaprine 10 mg tablet RxNorm: 208270 1 Tablet(s) PO TID as needed for muscle spasm No Start Date 10/08/2017 Inactive Albuterol 0.083% Aerosol Solution RxNorm: 1 Appl ication INH Q4H Use one ampule every 4 hrs with nebulizer as needed for shortness of breath. No Start Date 10/09/2010 Inactive lorazepam 1 mg tablet RxNorm: 742594 1 1/2 Tablet(s) PO QHS No Star t Date 02/02/2016 Inactive Melatonin 3 mg Tab RxNorm: 211878 Tablet(s) PO PRN No Start Date 07/11 Inactive Medrol (Dustin) 4 mg Tabs in a Dose Pack RxNorm: 570904 Tablet(s) PO N o Start Date 11/28/2010 Inactive lorazepam 1 mg tablet RxNorm: 531439 1 Tablet(s) PO QHS as need ed for sleep No Start Date 01/30/2016 Inactive hydrocodone-acetaminophen 10 mg-325 mg Tab RxNorm: 3166839 1-2 Tablet(s) PO QID as needed for severe pain No Start Date 03/24/2012 Inactive celecoxib 200 mg capsule RxNorm: 050870 1 Capsule(s) PO BID No Star t Date 06/26/2019 Inactive amlodipine 5 mg-benazepril 20 mg capsule RxNorm: 157690 1 Capsu le(s) PO QD No Start Date 04/10/2017 Inactive Bystolic 20 mg tablet RxNorm: 562626 1/2 Tablet(s) PO QAM No Start Date 01/23/2016 Inactive Bystolic 20 mg tablet RxNorm: 516520 1 Tablet(s) PO QAM No Start Da te 04/25/2016 Inactive Ambien 10 mg Tab RxNorm: 076989 1 Tablet(s) PO QHS No Start Date 05/11 Inactive Klor-Con 8 mEq Tab RxNorm: 421566 1 Tablet(s) PO QD when takes lasix No Start Date 03/06/2010 Inactive aspirin 81 mg tablet RxNorm: 553825 1 Tablet(s) PO QD No Start Date 0 01/29/2018 Inactive hydrocodone-acetaminophen 10 mg-325 mg Tab RxNorm: 0346540 1-2 T ablet(s) PO QID No Start Date 01/10/2012 Inactive Bystolic 10 mg tablet RxNorm: 069023 1 Tablet(s) PO QAM take one daily in the morning. No Start Date 05/28/2013 Inactive nystatin 100,000 unit/mL Oral Susp RxNorm: 818300 5 Milliliter( s) PO QID No Start Date 03/18/2012 Inactive swish and spit scopolamine 1.5 mg 72 hr Transderm Patch RxNorm: 838506 1 Unit Dose TD Q72H for motion sickness No Start Date 12/23/2013 Inactive Hydrocodone-Acetaminophen 10 mg-750 mg Tab RxNorm: 707090 1 Tablet(s) PO Q4H PRN No Start Date 01/12/2010 Inactive Soma 350 mg tablet RxNorm: 536010 1 Tablet(s) PO TID as needed for spasm No Start Date 01/12/2013 Inactive baclofen 10 mg tablet RxNorm: 683260 1 Tablet(s) PO TID as needed for muscle spasm No Start Date 09/18/2019 Inactive Soma 350 mg Tab RxNorm: 691948 1 Tablet(s) PO TID for spasm No Star t Date 01/31/2012 Inactive Co Q-10 400 mg capsule RxNorm: 082511 1 Capsule(s) PO QD No Start D ate 01/21/2019 Inactive nystatin 100,000 unit/gram topical cream RxNorm: 592166 Applica tion TOP BID No Start Date 03/22/2015 Inactive Exforge 5 mg-160 mg Tab RxNorm: 329060 1 Tablet(s) PO QD No Start D ate 10/09/2010 Inactive Hydrocodone-Acetaminophen 7.5 mg-650 mg Tab RxNorm: 934398 1 Ta blet(s) PO Q4H No Start Date 03/07/2010 Inactive Robaxin-750 750 mg Tab RxNorm: 732755 1-2 Tablet(s) PO TID prn spasm No Start Date 05/21/2011 Inactive amlodipine 5 mg tablet RxNorm: 448058 1 Tablet(s) PO QHS No Start D ate 09/29/2015 Inactive oxycodone-acetaminophen 10 mg-325 mg tablet RxNorm: 9222575 1-2 Tablet(s) PO Q6H No Start Date 06/16/2018 Inactive Triamterene-Hydrochlorothiazide 75 mg-50 mg Tab RxNorm: 3108 18 1 Tablet(s) PO QD No Start Date 02/08/2010 Inactive Alprazolam 0.5 mg Tab RxNorm: 631450 2 Tablet(s) PO QD prn No Start Date 03/07/2010 Inactive Bystolic 20 mg tablet RxNorm: 265226 1 Tablet(s) PO QAM No Start Da te 08/17/2015 Inactive ketorolac 10 mg tablet RxNorm: 285516 1 Tablet(s) PO QID prn he adache No Start Date 07/17/2012 Inactive acyclovir 800 mg Tab RxNorm: 663889 1 Tablet(s) PO BID No Start Date 03/18/2012 Inactive duloxetine 60 mg capsule,delayed release RxNorm: 495818 1 Capsu le(s) PO QD No Start Date 09/29/2015 Inactive Norvasc 5 mg tablet RxNorm: 190599 1 Tablet(s) PO QHS No Start Date 1 10/18/2014 Inactive promethazine 25 mg tablet RxNorm: 336958 1 Tablet(s) PO Q8H use sparingly No Start Date 07/22/2013 Inactive alprazolam 0.5 mg tablet RxNorm: 799445 3 Tablet(s) PO QHS No Start Date 06/06/2015 Inactive Lunesta 3 mg tablet RxNorm: 497224 1 Tablet(s) PO QHS No Start Date 0 09/20/2017 Inactive hydrocodone-acetaminophen 10 mg-325 mg Tab RxNorm: 2029771 1-2 Tablet(s) PO TID as needed for pain No Start Date 12/10/2011 Inactive Coricidin HBP Cough & Cold 4 mg-30 mg Tab RxNorm: 3185015 Tablet (s) PO PRN No Start Date 10/09/2010 Inactive Bactroban 2 % Ointment RxNorm: 297568 Application TOP QID to so res No Start Date 02/22/2012 Inactive Flonase 50 mcg/actuation Nasal [place] RxNorm: 849407 2 [place] QHS No Start Date 03/03/2014 Inactive Medication Administered No Medication Administered data Immunizations Vaccine Codes Date Status Tetanus, Diptheria, Pertussis CVX: 115 02/27/2014 Results Observation Observation Code Item Item Code Result Date S [facility] Location COMPREHENSIVE METABOLIC 06534 AST 15 U/L 2019 Unknown COMPREHENSIVE METABOLIC 39303 ALT 13 U/L 2019 Unknown COMPREHENSIVE METABOLIC 54254 BUN 12 mg/dL 2019 Unknown COMPREHENSIVE METABOLIC 93789 ALBUMIN 3.9 g/dL 2019 Unknown COMPREHENSIVE METABOLIC 79738 CHLORIDE 97 mmol/L 2019 Unknown COMPREHENSIVE METABOLIC 35184 Bili Total 0.4 mg/dL 09/29 Unknown COMPREHENSIVE METABOLIC 48063 ALK PHOS 130 U/L 2019 Unknown COMPREHENSIVE METABOLIC 99893 SODIUM 136 mmol/L 09/29 Unknown COMPREHENSIVE METABOLIC 48342 CREATININE 0.92 mg/dL 09/11 Unknown COMPREHENSIVE METABOLIC 26164 CALCIUM 9.1 mg/dL 2019 Unknown COMPREHENSIVE METABOLIC 34007 POTASSIUM 4.4 mmol/L 09/29 Unknown COMPREHENSIVE METABOLIC 93247 Total Protein 6.2 g/dL Unknown COMPREHENSIVE METABOLIC 77006 Glucose 391 mg/dL 2019 Unknown COMPREHENSIVE METABOLIC 55179 Bicarbonate 30 mmol/L 09/11 Unknown COMPREHENSIVE METABOLIC 40564 AGAP 9 mmol/L 2019 Unknown MEAN GLUC 7775623 Calc Mean Gluc 332 mg/dL 09/29/2019 Unkn own COMPLETE BLOOD COUNT [id number] WBC 7.0 10e9/L 09/29/19 Unknown COMPLETE BLOOD COUNT [id number] RBC 4.69 10e12/L 2019 Unknown COMPLETE BLOOD COUNT 3297857 HEMOGLOBIN 14.6 g/dL 09/29/19 Unknown COMPLETE BLOOD COUNT [id number] HEMATOCRIT 45.2 % 09/29/19 Unknown COMPLETE BLOOD COUNT [id number] MCV 96.4 fL 0 Unknown COMPLETE BLOOD COUNT 1034222 MCH 31.1 pg 0 Unknown COMPLETE BLOOD COUNT 1178047 MCHC 32.3 g/dL 0 Unknown COMPLETE BLOOD COUNT 0508254 PLATELET COUNT 209 10e9/L Unknown COMPLETE BLOOD COUNT 2593677 Mean Plt Volume 9.8 fL Unknown COMPLETE BLOOD COUNT 0806652 Neut Auto 48.1 % 0 Unknown COMPLETE BLOOD COUNT [id number] Lymph Auto 36.5 % 09/29/19 Unknown COMPLETE BLOOD COUNT 7687287 [place] Auto 8.6 % 0 Unknown COMPLETE BLOOD COUNT 5774837 RDW 13.4 % 0 Unknown COMPLETE BLOOD COUNT [id number] Eos Auto 6.5 % 0 Unknown COMPLETE BLOOD COUNT 1289263 Baso Auto 0.3 % 0 Unknown COMPLETE BLOOD COUNT 5168015 Neutrophil Abs 3.37 10e9/L Unknown COMPLETE BLOOD COUNT [id number] Lymphocyte Abs 2.56 10e9/L Unknown COMPLETE BLOOD COUNT [id number] Monocyte Abs 0.60 10e9/L 09/11 Unknown COMPLETE BLOOD COUNT [id number] Eosinophil Abs 0.46 10e9/L Unknown COMPLETE BLOOD COUNT [id number] RDW-SD 45.9 fL 0 Unknown COMPLETE BLOOD COUNT [id number] Basophil Abs 0.02 10e9/L 09/11 Unknown LIPID GROUP 80966 Cholesterol 248 mg/dL 09/29/2019 Unkno wn LIPID GROUP 01942 Triglyceride 898 mg/dL 09/29/2019 Unkn own LIPID GROUP 09433 HDL CHOLESTEROL 41 mg/dL 09/29/2019 U nknown LIPID GROUP 91662 Chol/HDL Ratio 6.05 ratio 09/29/2019 U nknown LIPID GROUP 77930 NON-HDL Chol 207 mg/dL 09/29/2019 Unkn own LIPID GROUP 22920 LDL Cholesterol N/A Trig >400 020 Unknown GLYCOSYLATED HEMOGLOBIN TEST 34919 Hgb A1c 73184-9 13.2 % 0 09/29/2019 Unknown FREE T4 37172 T4 Free 0.75 ng/dL 09/29/2019 Unknown GFR CALC 5040362 GFR Non Afr Amr >60 mL/min 09/29/2019 Un known GFR CALC 8087181 GFR Afr Amr >60 mL/min 09/29/2019 Unknow n THYROID STIMULATING HORMONE 89837 TSH 4.245 uIU/mL 09/29/2019 Unknown COMPLETE BLOOD COUNT [id number] WBC 10.7 10e9/L 018 Unknown COMPLETE BLOOD COUNT [id number] RBC 4.59 10e12/L 2017 Unknown COMPLETE BLOOD COUNT [id number] HEMOGLOBIN 14.8 g/dL 12/11/19 18 Unknown COMPLETE BLOOD COUNT 2008875 HEMATOCRIT 44.9 % 12/11/19 18 Unknown COMPLETE BLOOD COUNT 1640908 MCV 97.8 fL 8 Unknown COMPLETE BLOOD COUNT 3135235 MCH 32.2 pg 8 Unknown COMPLETE BLOOD COUNT 5933452 MCHC 33.0 g/dL 8 Unknown COMPLETE BLOOD COUNT 2292259 PLATELET COUNT 261 10e9/L 10/2017 Unknown COMPLETE BLOOD COUNT [id number] Mean Plt Volume 9.5 fL 10/2017 Unknown COMPLETE BLOOD COUNT 9038993 Neut Auto 59.9 % 8 Unknown COMPLETE BLOOD COUNT [id number] Lymph Auto 27.4 % 12/11/19 18 Unknown COMPLETE BLOOD COUNT 8275308 [place] Auto 8.2 % 8 Unknown COMPLETE BLOOD COUNT 4978338 RDW 13.3 % 8 Unknown COMPLETE BLOOD COUNT 2273613 Eos Auto 4.1 % 8 Unknown COMPLETE BLOOD COUNT 0575099 Baso Auto 0.4 % 8 Unknown COMPLETE BLOOD COUNT 4257013 Neutrophil Abs 6.41 10e9/L Unknown COMPLETE BLOOD COUNT 7406884 Lymphocyte Abs 2.93 10e9/L Unknown COMPLETE BLOOD COUNT [id number] Monocyte Abs 0.88 10e9/L 10/2017 Unknown COMPLETE BLOOD COUNT [id number] Eosinophil Abs 0.44 10e9/L Unknown COMPLETE BLOOD COUNT [id number] RDW-SD 46.2 fL 8 Unknown COMPLETE BLOOD COUNT [id number] Basophil Abs 0.04 10e9/L 10/2017 Unknown THYROID STIMULATING HORMONE 69812 TSH 4.015 uIU/mL 12/10/2017 Unknown COMPREHENSIVE METABOLIC 02266 AST 25 U/L 2017 Unknown COMPREHENSIVE METABOLIC 56887 ALT 17 U/L 2017 Unknown COMPREHENSIVE METABOLIC 82281 BUN 19 mg/dL 2017 Unknown COMPREHENSIVE METABOLIC 27629 ALBUMIN 4.0 g/dL 2017 Unknown COMPREHENSIVE METABOLIC 11228 CHLORIDE 91 mmol/L 2017 Unknown COMPREHENSIVE METABOLIC 61965 Bili Total 0.5 mg/dL 12/10 Unknown COMPREHENSIVE METABOLIC 80502 ALK PHOS 75 U/L 2017 Unknown COMPREHENSIVE METABOLIC 37998 SODIUM 136 mmol/L 12/10 Unknown COMPREHENSIVE METABOLIC 72218 CREATININE 1.05 mg/dL 10/2017 Unknown COMPREHENSIVE METABOLIC 99279 CALCIUM 8.9 mg/dL 2017 Unknown COMPREHENSIVE METABOLIC 29003 POTASSIUM 3.4 mmol/L 12/10 Unknown COMPREHENSIVE METABOLIC 53500 Total Protein 6.5 g/dL Unknown COMPREHENSIVE METABOLIC 59757 Glucose 138 mg/dL 2017 Unknown COMPREHENSIVE METABOLIC 37464 Bicarbonate 35 mmol/L 10/2017 Unknown COMPREHENSIVE METABOLIC 73585 AGAP 10 mmol/L 2017 Unknown MEAN GLUC 0933169 Calc Mean Gluc 171 mg/dL 12/10/2017 Unkn own LIPID GROUP 88361 Cholesterol 204 mg/dL 12/10/2017 Unkno wn LIPID GROUP 79674 Triglyceride 411 mg/dL 12/10/2017 Unkn own LIPID GROUP 58814 HDL CHOLESTEROL 50 mg/dL 12/10/2017 U nknown LIPID GROUP 46084 Chol/HDL Ratio 4.08 ratio 12/10/2017 U nknown LIPID GROUP 56020 NON-HDL Chol 154 mg/dL 12/10/2017 Unkn own LIPID GROUP 27715 LDL Cholesterol N/A Trig >400 018 Unknown GLYCOSYLATED HEMOGLOBIN TEST 59110 Hgb A1c 06378-5 7.6 % 0 12/10/2017 Unknown FREE T4 16350 T4 Free 1.40 ng/dL 12/10/2017 Unknown GFR CALC 1987647 GFR Non Afr Amr 55 mL/min 12/10/2017 Unk nown GFR CALC 2889293 GFR Afr Amr >60 mL/min 12/10/2017 Unknow n GFR CALC 5711802 GFR Non Afr Amr 48 mL/min 06/28/2017 Unk nown GFR CALC 2446206 GFR Afr Amr 59 mL/min 06/28/2017 Unknown COMPREHENSIVE METABOLIC 00594 AST 32 U/L 2016 Unknown COMPREHENSIVE METABOLIC 41868 ALT 22 U/L 2016 Unknown COMPREHENSIVE METABOLIC 20351 BUN 23 mg/dL 2016 Unknown COMPREHENSIVE METABOLIC 38059 ALBUMIN 4.7 g/dL 2016 Unknown COMPREHENSIVE METABOLIC 73123 CHLORIDE 89 mmol/L 2016 Unknown COMPREHENSIVE METABOLIC 53229 Bili Total 0.5 mg/dL 06/28 Unknown COMPREHENSIVE METABOLIC 45329 ALK PHOS 90 U/L 2016 Unknown COMPREHENSIVE METABOLIC 10458 SODIUM 135 mmol/L 06/28 Unknown COMPREHENSIVE METABOLIC 98339 CREATININE 1.18 mg/dL 06/10 Unknown COMPREHENSIVE METABOLIC 00459 CALCIUM 9.7 mg/dL 2016 Unknown COMPREHENSIVE METABOLIC 52409 POTASSIUM 3.5 mmol/L 06/28 Unknown COMPREHENSIVE METABOLIC 99509 Total Protein 7.7 g/dL Unknown COMPREHENSIVE METABOLIC 49324 Glucose 129 mg/dL 2016 Unknown COMPREHENSIVE METABOLIC 72064 Bicarbonate 34 mmol/L 06/10 Unknown COMPREHENSIVE METABOLIC 25421 AGAP 12 mmol/L 2016 Unknown LIPID GROUP 73258 HDL TEST 64 MG/DL 08/27/2014 Unknown LIPID GROUP 75184 TRIG 222 MG/DL 08/27/2014 Unknown LIPID GROUP 74815 TEST LDL 209 MG/DL 08/27/2014 Unknown LIPID GROUP 31791 CHOL 317 MG/DL 08/27/2014 Unknown LIPID GROUP 79260 RCHOL/HDL 4.95 RATIO 08/27/2014 Unknow n LIPID GROUP 12443 NON-HDL CH 253 MG/DL 08/27/2014 Unknow n GFR CALC 5695286 GFR AA >60 ML/MIN 08/27/2014 Unknown GFR CALC 6051250 GFR NON-AA >60 ML/MIN 08/27/2014 Unknown COMPLETE BLOOD COUNT 5733406 WBC 7.0 10e9/L 08/27/20 14 Unknown COMPLETE BLOOD COUNT 1703638 RBC 4.98 10e12/L 2013 Unknown COMPLETE BLOOD COUNT 7702736 HGB 15.6 g/dL 4 Unknown COMPLETE BLOOD COUNT 7394518 HCT DET 46.5 % 4 Unknown COMPLETE BLOOD COUNT 9314653 MCV 93.4 fL 4 Unknown COMPLETE BLOOD COUNT 0574219 MCH 31.3 pg 4 Unknown COMPLETE BLOOD COUNT 9174369 MCHC 33.5 g/dL 4 Unknown COMPLETE BLOOD COUNT 6313561 PLT 309 10e9/L 08/27/20 14 Unknown COMPLETE BLOOD COUNT 8041867 MPV 9.6 fL 4 Unknown COMPLETE BLOOD COUNT 8707031 CADEN % 57.2 % 4 Unknown COMPLETE BLOOD COUNT 0560480 LY % 33.2 % 4 Unknown COMPLETE BLOOD COUNT 7033498 MON % 7.3 % 4 Unknown COMPLETE BLOOD COUNT 4130935 EOS % 2.0 % 4 Unknown COMPLETE BLOOD COUNT 9200323 BASO % 0.3 % 4 Unknown COMPLETE BLOOD COUNT 4200557 RDW 13.7 % 4 Unknown COMPLETE BLOOD COUNT [id number] ABS CADEN 4.00 10e9/L 014 Unknown COMPLETE BLOOD COUNT 5402838 ABS LYMPH 2.32 10e9/L 014 Unknown COMPLETE BLOOD COUNT 5150777 ABS MONO 0.51 10e9/L 014 Unknown COMPLETE BLOOD COUNT 1662168 ABS EOS 0.14 10e9/L 014 Unknown COMPLETE BLOOD COUNT 2194968 ABS BASO 0.02 10e9/L 014 Unknown COMPLETE BLOOD COUNT 1131953 RDW-SD 45.1 fL 4 Unknown COMPREHENSIVE METABOLIC 58802 AST 13 U/L 2013 Unknown COMPREHENSIVE METABOLIC 34169 ALT 11 IU/L 2013 Unknown COMPREHENSIVE METABOLIC 31655 BUN 23 MG/DL 2013 Unknown COMPREHENSIVE METABOLIC 85553 ALBUMIN 4.4 GM/DL 2013 Unknown COMPREHENSIVE METABOLIC 35833 CHLORIDE 99 MMOL/L 2013 Unknown COMPREHENSIVE METABOLIC 20566 BILI TOT 0.5 MG/DL 2013 Unknown COMPREHENSIVE METABOLIC 53548 ALK PHOS 56 U/L 2013 Unknown COMPREHENSIVE METABOLIC 17555 SODIUM 138 MMOL/L 08/27 Unknown COMPREHENSIVE METABOLIC 39730 CREATININE 0.95 MG/DL 08/10 Unknown COMPREHENSIVE METABOLIC 53868 CALCIUM 9.8 MG/DL 2013 Unknown COMPREHENSIVE METABOLIC 60413 POTASSIUM 3.5 MMOL/L 08/27 Unknown COMPREHENSIVE METABOLIC 46828 PROT TOT 6.8 GM/DL 2013 Unknown COMPREHENSIVE METABOLIC 20250 Glucose 90 MG/DL 2013 Unknown COMPREHENSIVE METABOLIC 58347 BICARB 34 MMOL/L 2013 Unknown COMPREHENSIVE METABOLIC 97188 ANION GAP 5 MEQ/L 2013 Unknown LIPASE 85285 LIPASE 11 IU/L 07/21/2014 Unknown AMYLASE 99959 AMYLASE 39 IU/L 07/21/2014 Unknown HEMOGLOBIN A1C (GLYCOSYLATED) 9001874 A1C [place] [facility] [facility] 13757-3 6.2 % 03/05/2013 Unknown THYROID STIMULATING HORMONE 51547 TSH 6.986 uIU/ML 03/05/2013 Unknown COMPLETE BLOOD COUNT 7735722 WBC 12.7 10e9/L 013 Unknown COMPLETE BLOOD COUNT 6856971 RBC 4.53 10e12/L 2012 Unknown COMPLETE BLOOD COUNT 7562515 HGB 14.7 g/dL 3 Unknown COMPLETE BLOOD COUNT 7414019 HCT DET 43.1 % 3 Unknown COMPLETE BLOOD COUNT 7957473 MCV 95.1 fL 3 Unknown COMPLETE BLOOD COUNT 8189861 MCH 32.5 pg 3 Unknown COMPLETE BLOOD COUNT 6981774 MCHC 34.1 g/dL 3 Unknown COMPLETE BLOOD COUNT 3406134 PLT 346 10e9/L 03/05/20 13 Unknown COMPLETE BLOOD COUNT 2042340 MPV 9.5 fL 3 Unknown COMPLETE BLOOD COUNT 1801787 CADNE % 67.6 % 3 Unknown COMPLETE BLOOD COUNT 9077055 LY % 22.1 % 3 Unknown COMPLETE BLOOD COUNT 1525029 MON % 6.6 % 3 Unknown COMPLETE BLOOD COUNT 5014793 EOS % 3.3 % 3 Unknown COMPLETE BLOOD COUNT 2399696 BASO % 0.4 % 3 Unknown COMPLETE BLOOD COUNT 7061323 RDW 14.0 % 3 Unknown COMPLETE BLOOD COUNT 7279683 ABS CADEN 8.59 10e9/L 013 Unknown COMPLETE BLOOD COUNT 8174261 ABS LYMPH 2.81 10e9/L 013 Unknown COMPLETE BLOOD COUNT 0869100 ABS MONO 0.84 10e9/L 013 Unknown COMPLETE BLOOD COUNT [id number] ABS EOS 0.42 10e9/L 013 Unknown COMPLETE BLOOD COUNT 3637012 ABS BASO 0.05 10e9/L 013 Unknown COMPLETE BLOOD COUNT 7721958 RDW-SD 46.0 fL 3 Unknown FREE T4 62586 FREE T4 1.14 NG/DL 03/05/2013 Unknown COMPREHENSIVE METABOLIC 00436 AST 17 U/L 2012 Unknown COMPREHENSIVE METABOLIC 08763 ALT 12 IU/L 2012 Unknown COMPREHENSIVE METABOLIC 27134 BUN 24 MG/DL 2012 Unknown COMPREHENSIVE METABOLIC 26238 ALBUMIN 4.2 GM/DL 2012 Unknown COMPREHENSIVE METABOLIC 73486 CHLORIDE 93 MMOL/L 2012 Unknown COMPREHENSIVE METABOLIC 27325 BILI TOT 0.5 MG/DL 2012 Unknown COMPREHENSIVE METABOLIC 67916 ALK PHOS 75 U/L 2012 Unknown COMPREHENSIVE METABOLIC 65044 SODIUM 141 MMOL/L 03/05 Unknown COMPREHENSIVE METABOLIC 34107 CREATININE 1.36 MG/DL 02/09 Unknown COMPREHENSIVE METABOLIC 43813 CALCIUM 9.2 MG/DL 2012 Unknown COMPREHENSIVE METABOLIC 54508 POTASSIUM 3.1 MMOL/L 03/05 Unknown COMPREHENSIVE METABOLIC 27811 PROT TOT 6.9 GM/DL 2012 Unknown COMPREHENSIVE METABOLIC 43154 Glucose 123 MG/DL 2012 Unknown COMPREHENSIVE METABOLIC 60033 BICARB 36 MMOL/L 2012 Unknown COMPREHENSIVE METABOLIC 66433 ANION GAP 12 MEQ/L 2012 Unknown GFR CALC 5418139 GFR AA 51.0L ML/MIN 03/05/2013 Unknow n GFR CALC 0147487 GFR NON-AA 42.0L ML/MIN 03/05/2013 Unkno wn COMPREHENSIVE METABOLIC 83645 AST 14 U/L 2012 Unknown COMPREHENSIVE METABOLIC 08219 ALT 11 IU/L 2012 Unknown COMPREHENSIVE METABOLIC 19788 BUN 16 MG/DL 2012 Unknown COMPREHENSIVE METABOLIC 37960 ALBUMIN 4.2 GM/DL 2012 Unknown COMPREHENSIVE METABOLIC 86898 CHLORIDE 98 MMOL/L 2012 Unknown COMPREHENSIVE METABOLIC 11966 BILI TOT 0.4 MG/DL 2012 Unknown COMPREHENSIVE METABOLIC 64462 ALK PHOS 77 U/L 2012 Unknown COMPREHENSIVE METABOLIC 90197 SODIUM 139 MMOL/L 09/25 Unknown COMPREHENSIVE METABOLIC 43237 CREATININE 0.86 MG/DL 09/10 Unknown COMPREHENSIVE METABOLIC 19459 CALCIUM 9.5 MG/DL 2012 Unknown COMPREHENSIVE METABOLIC 66533 POTASSIUM 3.8 MMOL/L 09/25 Unknown COMPREHENSIVE METABOLIC 81623 PROT TOT 6.8 GM/DL 2012 Unknown COMPREHENSIVE METABOLIC 79292 Glucose 91 MG/DL 2012 Unknown COMPREHENSIVE METABOLIC 24537 BICARB 32 MMOL/L 2012 Unknown COMPREHENSIVE METABOLIC 70356 ANION GAP 9 MEQ/L 2012 Unknown FREE T4 43976 FREE T4 0.98 NG/DL 09/25/2012 Unknown THYROID STIMULATING HORMONE 40890 TSH 1.736 uIU/ML 09/25/2012 Unknown C-REACTIVE PROTEIN (CRP) QUANT 86571 CRP 2.3 MG/DL 09/25/2012 Unknown COMPLETE BLOOD COUNT 7736999 WBC 11.9 10e9/L 013 Unknown COMPLETE BLOOD COUNT [id number] RBC 4.87 10e12/L 2012 Unknown COMPLETE BLOOD COUNT 8536323 HGB 15.1 g/dL 3 Unknown COMPLETE BLOOD COUNT 3698510 HCT DET 44.8 % 3 Unknown COMPLETE BLOOD COUNT 9890638 MCV 92.0 fL 3 Unknown COMPLETE BLOOD COUNT 5864056 MCH 31.0 pg 3 Unknown COMPLETE BLOOD COUNT 6042304 MCHC 33.7 g/dL 3 Unknown COMPLETE BLOOD COUNT 2212730 PLT 343 10e9/L 09/25/19 13 Unknown COMPLETE BLOOD COUNT 3155843 MPV 9.0 fL 3 Unknown COMPLETE BLOOD COUNT 0134281 CADEN % 68.2 % 3 Unknown COMPLETE BLOOD COUNT 4581288 LY % 22.4 % 3 Unknown COMPLETE BLOOD COUNT 3748393 MON % 6.4 % 3 Unknown COMPLETE BLOOD COUNT 1371790 EOS % 2.7 % 3 Unknown COMPLETE BLOOD COUNT 0352191 BASO % 0.3 % 3 Unknown COMPLETE BLOOD COUNT 8608404 RDW 13.8 % 3 Unknown COMPLETE BLOOD COUNT 2254560 ABS CADEN 8.12 10e9/L 013 Unknown COMPLETE BLOOD COUNT 0938834 ABS LYMPH 2.67 10e9/L 013 Unknown COMPLETE BLOOD COUNT [id number] ABS MONO 0.76 10e9/L 013 Unknown COMPLETE BLOOD COUNT 4373488 ABS EOS 0.32 10e9/L 013 Unknown COMPLETE BLOOD COUNT 1836102 ABS BASO 0.04 10e9/L 013 Unknown COMPLETE BLOOD COUNT 9846281 RDW-SD 45.6 fL 3 Unknown GFR CALC 7945888 GFR AA >60 ML/MIN 09/25/2012 Unknown GFR CALC 2325019 GFR NON-AA >60 ML/MIN 09/25/2012 Unknown ERYTHROCYTE SEDIMENTATION RATE 41051 ESR 19 MM/HR 05/06/2012 Unknown VITAMIN B 12 FOLIC ACID 33958|97477 VIT B 12 922 PG/ML 04/11 Unknown VITAMIN B 12 FOLIC ACID 88742|72063 FOLIC ACID 13.6 NG/ML Unknown URIC ACID 06323 URIC ACID 7.8 MG/DL 05/06/2012 Unknown COMPLETE BLOOD COUNT 60228 WBC 11.9 10e9/L 012 Unknown COMPLETE BLOOD COUNT 34855 RBC 5.30 10e12/L 2011 Unknown COMPLETE BLOOD COUNT 94691 HGB 16.6 g/dL 2 Unknown COMPLETE BLOOD COUNT 75413 HCT DET 47.2 % 2 Unknown COMPLETE BLOOD COUNT 06615 MCV 89.1 fL 2 Unknown COMPLETE BLOOD COUNT 94007 MCH 31.3 pg 2 Unknown COMPLETE BLOOD COUNT 78973 MCHC 35.2 g/dL 2 Unknown COMPLETE BLOOD COUNT 82761 PLT 362 10e9/L 05/06/20 12 Unknown COMPLETE BLOOD COUNT 53878 MPV 9.4 fL 2 Unknown COMPLETE BLOOD COUNT 13038 CADEN % 68.2 % 2 Unknown COMPLETE BLOOD COUNT 73163 LY % 22.0 % 2 Unknown COMPLETE BLOOD COUNT 95835 MON % 6.9 % 2 Unknown COMPLETE BLOOD COUNT 00649 EOS % 2.6 % 2 Unknown COMPLETE BLOOD COUNT 26012 BASO % 0.3 % 2 Unknown COMPLETE BLOOD COUNT 27821 RDW 12.8 % 2 Unknown COMPLETE BLOOD COUNT 70227 ABS CADEN 8.12 10e9/L 012 Unknown COMPLETE BLOOD COUNT 29382 ABS LYMPH 2.62 10e9/L 012 Unknown COMPLETE BLOOD COUNT 49310 ABS MONO 0.82 10e9/L 012 Unknown COMPLETE BLOOD COUNT 73534 ABS EOS 0.31 10e9/L 012 Unknown COMPLETE BLOOD COUNT 63986 ABS BASO 0.04 10e9/L 012 Unknown COMPLETE BLOOD COUNT 61813 RDW-SD 41.5 fL 2 Unknown GFR CALC [id number] GFR AA >60 ML/MIN 05/06/2012 Unknown GFR CALC [id number] GFR NON-AA 58.0L ML/MIN 05/06/2012 Unkno wn FREE T4 34260 FREE T4 1.15 NG/DL 05/06/2012 Unknown THYROID STIMULATING HORMONE 07725 TSH 1.568 uIU/ML 05/06/2012 Unknown COMPREHENSIVE METABOLIC 23183 AST 20 U/L 2011 Unknown COMPREHENSIVE METABOLIC 56514 ALT 12 IU/L 2011 Unknown COMPREHENSIVE METABOLIC 81318 BUN 20 MG/DL 2011 Unknown COMPREHENSIVE METABOLIC 69375 ALBUMIN 4.5 GM/DL 2011 Unknown COMPREHENSIVE METABOLIC 49003 CHLORIDE 91 MMOL/L 2011 Unknown COMPREHENSIVE METABOLIC 00360 BILI TOT 0.4 MG/DL 2011 Unknown COMPREHENSIVE METABOLIC 69114 ALK PHOS 73 U/L 2011 Unknown COMPREHENSIVE METABOLIC 17429 SODIUM 139 MMOL/L 05/06 Unknown COMPREHENSIVE METABOLIC 09169 CREATININE 1.02 MG/DL 04/11 Unknown COMPREHENSIVE METABOLIC 83846 CALCIUM 9.7 MG/DL 2011 Unknown COMPREHENSIVE METABOLIC 71109 POTASSIUM 3.1 MMOL/L 05/06 Unknown COMPREHENSIVE METABOLIC 65244 PROT TOT 7.3 GM/DL 2011 Unknown COMPREHENSIVE METABOLIC 19139 Glucose 118 MG/DL 2011 Unknown COMPREHENSIVE METABOLIC 72110 BICARB 33 MMOL/L 2011 Unknown COMPREHENSIVE METABOLIC 88079 ANION GAP 15 MEQ/L 2011 Unknown Procedures Procedure Codes Date ROUTINE VENIPUNCTURE CPT-4: 26919 09/29/2019 URINALYSIS NONAUTO W/O SCOPE CPT-4: 78672 09/29/2019 COMPREHEN METABOLIC PANEL CPT-4: 16362 09/29/2019 LIPID PANEL CPT-4: 61878 09/29/2019 A1C HPLC CPT-4: 65981 09/29/2019 ASSAY OF FREE THYROXINE CPT-4: 73427 09/29/2019 ASSAY THYROID STIM HORMONE CPT-4: 74656 09/29/2019 COMPLETE CBC W/AUTO DIFF WBC CPT-4: 84953 09/29/2019 URINALYSIS NONAUTO W/O SCOPE CPT-4: 97698 09/30/2018 MICROALBUMIN QUANTITATIVE CPT-4: 88052 09/30/2018 CEFTRIAXONE SODIUM INJECTION CPT-4: J0696 06/19/2018 THER/PROPH/DIAG INJ SC/IM CPT-4: 73116 06/19/2018 CEFTRIAXONE SODIUM INJECTION CPT-4: J0696 06/17/2018 THER/PROPH/DIAG INJ SC/IM CPT-4: 66693 06/17/2018 THER/PROPH/DIAG INJ SC/IM CPT-4: 89572 05/16/2018 KETOROLAC TROMETHAMINE INJ CPT-4: J1885 05/16/2018 ONDANSETRON HCL INJECTION CPT-4: J2405 05/16/2018 THER/PROPH/DIAG INJ SC/IM CPT-4: 62314 05/16/2018 ROUTINE VENIPUNCTURE CPT-4: 86860 03/20/2018 COMPREHEN METABOLIC PANEL CPT-4: 32786 03/20/2018 DEXAMETHASONE SODIUM PHOS CPT-4: J1100 02/11/2018 THER/PROPH/DIAG INJ SC/IM CPT-4: 60432 02/11/2018 TRIAMCINOLONE ACET INJ NOS CPT-4: J3301 02/11/2018 CEFTRIAXONE SODIUM INJECTION CPT-4: J0696 02/01/2018 THER/PROPH/DIAG INJ SC/IM CPT-4: 11666 02/01/2018 CEFTRIAXONE SODIUM INJECTION CPT-4: J0696 01/30/2018 THER/PROPH/DIAG INJ SC/IM CPT-4: 97805 01/30/2018 ROUTINE VENIPUNCTURE CPT-4: 77579 12/10/2017 ASSAY OF FREE THYROXINE CPT-4: 49649 12/10/2017 ASSAY THYROID STIM HORMONE CPT-4: 49479 12/10/2017 COMPREHEN METABOLIC PANEL CPT-4: 34899 12/10/2017 COMPLETE CBC W/AUTO DIFF WBC CPT-4: 38990 12/10/2017 LIPID PANEL CPT-4: 36078 12/10/2017 A1C HPLC CPT-4: 01315 12/10/2017 CEFTRIAXONE SODIUM INJECTION CPT-4: J0696 12/10/2017 THER/PROPH/DIAG INJ SC/IM CPT-4: 32083 12/10/2017 CEFTRIAXONE SODIUM INJECTION CPT-4: J0696 12/07/2017 THER/PROPH/DIAG INJ SC/IM CPT-4: 63576 12/07/2017 DEXAMETHASONE SODIUM PHOS CPT-4: J1100 12/07/2017 THER/PROPH/DIAG INJ SC/IM CPT-4: 17368 12/07/2017 CEFTRIAXONE SODIUM INJECTION CPT-4: J0696 10/08/2017 THER/PROPH/DIAG INJ SC/IM CPT-4: 51787 10/08/2017 CEFTRIAXONE SODIUM INJECTION CPT-4: J0696 09/21/2017 THER/PROPH/DIAG INJ SC/IM CPT-4: 55066 09/21/2017 CEFTRIAXONE SODIUM INJECTION CPT-4: J0696 09/20/2017 THER/PROPH/DIAG INJ SC/IM CPT-4: 36960 09/20/2017 REMOVAL OF NAIL PLATE CPT-4: 11116 08/29/2017 THER/PROPH/DIAG INJ SC/IM CPT-4: 27691 08/29/2017 TRIAMCINOLONE ACET INJ NOS CPT-4: J3301 08/29/2017 CEFTRIAXONE SODIUM INJECTION CPT-4: J0696 08/29/2017 THER/PROPH/DIAG INJ SC/IM CPT-4: 38368 08/29/2017 DESTRUCT PREMALG LESION (Cryosurgery) CPT-4: 18230 ROUTINE VENIPUNCTURE CPT-4: 95232 06/27/2017 ASSAY OF FREE THYROXINE CPT-4: 06494 06/27/2017 ASSAY THYROID STIM HORMONE CPT-4: 34492 06/27/2017 COMPREHEN METABOLIC PANEL CPT-4: 65788 06/27/2017 COMPLETE CBC W/AUTO DIFF WBC CPT-4: 38883 06/27/2017 EXC TR-EXT B9+REECE 0.5 CM< CPT-4: 37010 01/24/2017 THER/PROPH/DIAG INJ SC/IM CPT-4: 51236 08/02/2016 DEXAMETHASONE SODIUM PHOS CPT-4: J1100 08/02/2016 DESTRUCT PREMALG LESION (Cryosurgery) CPT-4: 00722 EXC TR-EXT B9+REECE 0.5 CM< CPT-4: 33243 08/01/2016 AEROBIC WOUND CULTURE & STN CPT-4: 01435 07/06/2016 CEFTRIAXONE SODIUM INJECTION CPT-4: J0696 05/25/2016 THER/PROPH/DIAG INJ SC/IM CPT-4: 24915 05/25/2016 THER/PROPH/DIAG INJ SC/IM CPT-4: 45046 04/26/2016 DEXAMETHASONE SODIUM PHOS CPT-4: J1100 04/26/2016 CEFTRIAXONE SODIUM INJECTION CPT-4: J0696 04/26/2016 THER/PROPH/DIAG INJ SC/IM CPT-4: 57499 04/26/2016 THER/PROPH/DIAG INJ SC/IM CPT-4: 27019 02/09/2016 TRIAMCINOLONE ACET INJ NOS CPT-4: J3301 02/09/2016 URINALYSIS NONAUTO W/O SCOPE CPT-4: 33381 01/24/2016 URINE CULTURE/ COLONY COUNT CPT-4: 82305 01/24/2016 THER/PROPH/DIAG INJ SC/IM CPT-4: 73578 12/08/2015 TRIAMCINOLONE ACET INJ NOS CPT-4: J3301 12/08/2015 THER/PROPH/DIAG INJ SC/IM CPT-4: 39693 10/07/2015 TRIAMCINOLONE ACET INJ NOS CPT-4: J3301 10/07/2015 DESTRUCT PREMALG LESION (Cryosurgery) CPT-4: 98718 THER/PROPH/DIAG INJ SC/IM CPT-4: 67669 03/16/2015 METHYLPREDNISOLONE 40 MG INJ CPT-4: J1030 03/16/2015 DESTRUCT PREMALG LESION (Cryosurgery) CPT-4: 58437 THER/PROPH/DIAG INJ SC/IM CPT-4: 09616 09/11/2014 METHYLPREDNISOLONE 40 MG INJ CPT-4: J1030 09/11/2014 TRIAMCINOLONE ACET INJ NOS CPT-4: J3301 09/11/2014 CEFTRIAXONE SODIUM INJECTION CPT-4: J0696 09/11/2014 THER/PROPH/DIAG INJ SC/IM CPT-4: 81562 09/11/2014 ROUTINE VENIPUNCTURE CPT-4: 52068 08/27/2014 COMPREHEN METABOLIC PANEL CPT-4: 08088 08/27/2014 COMPLETE CBC W/AUTO DIFF WBC CPT-4: 28458 08/27/2014 LIPID PANEL CPT-4: 90708 08/27/2014 ROUTINE VENIPUNCTURE CPT-4: 86788 07/21/2014 ASSAY OF AMYLASE CPT-4: 46378 07/21/2014 ASSAY OF LIPASE CPT-4: 05173 07/21/2014 THER/PROPH/DIAG INJ SC/IM CPT-4: 22650 07/15/2014 TRIAMCINOLONE ACET INJ NOS CPT-4: J3301 07/15/2014 ROUTINE VENIPUNCTURE CPT-4: 97899 05/14/2014 ASSAY OF FREE THYROXINE CPT-4: 61754 05/14/2014 ASSAY THYROID STIM HORMONE CPT-4: 80905 05/14/2014 COMPREHEN METABOLIC PANEL CPT-4: 04069 05/14/2014 COMPLETE CBC W/AUTO DIFF WBC CPT-4: 92090 05/14/2014 LIPID PANEL CPT-4: 76425 05/14/2014 CEFTRIAXONE SODIUM INJECTION CPT-4: J0696 04/21/2014 THER/PROPH/DIAG INJ SC/IM CPT-4: 93525 04/21/2014 THER/PROPH/DIAG INJ SC/IM CPT-4: 15589 04/21/2014 TRIAMCINOLONE ACET INJ NOS CPT-4: J3301 04/21/2014 THER/PROPH/DIAG INJ SC/IM CPT-4: 35562 03/04/2014 METHYLPREDNISOLONE 40 MG INJ CPT-4: J1030 03/04/2014 TRIAMCINOLONE ACET INJ NOS CPT-4: J3301 03/04/2014 CEFTRIAXONE SODIUM INJECTION CPT-4: J0696 03/04/2014 THER/PROPH/DIAG INJ SC/IM CPT-4: 25578 03/04/2014 TDAP VACCINE 7 YRS/> IM CPT-4: 26065 02/27/2014 IMMUNIZATION ADMIN CPT-4: 55666 02/27/2014 DESTRUCT PREMALG LESION (Cryosurgery) CPT-4: 29794 DESTRUCT PREMALG LES 2-14 CPT-4: 99414 01/13/2014 THER/PROPH/DIAG INJ SC/IM CPT-4: 79001 10/21/2013 METHYLPREDNISOLONE 40 MG INJ CPT-4: J1030 10/21/2013 TRIAMCINOLONE ACET INJ NOS CPT-4: J3301 10/21/2013 CEFTRIAXONE SODIUM INJECTION CPT-4: J0696 08/27/2013 THER/PROPH/DIAG INJ SC/IM CPT-4: 09821 08/27/2013 THER/PROPH/DIAG INJ SC/IM CPT-4: 60125 08/27/2013 METHYLPREDNISOLONE 40 MG INJ CPT-4: J1030 08/27/2013 TRIAMCINOLONE ACET INJ NOS CPT-4: J3301 08/27/2013 THER/PROPH/DIAG INJ SC/IM CPT-4: 54176 06/23/2013 METHYLPREDNISOLONE 40 MG INJ CPT-4: J1030 06/23/2013 TRIAMCINOLONE ACET INJ NOS CPT-4: J3301 06/23/2013 THER/PROPH/DIAG INJ SC/IM CPT-4: 44034 05/26/2013 METHYLPREDNISOLONE 40 MG INJ CPT-4: J1030 05/26/2013 TRIAMCINOLONE ACET INJ NOS CPT-4: J3301 05/26/2013 ROUTINE VENIPUNCTURE CPT-4: 33291 03/05/2013 ASSAY OF FREE THYROXINE CPT-4: 25128 03/05/2013 ASSAY THYROID STIM HORMONE CPT-4: 39469 03/05/2013 COMPREHEN METABOLIC PANEL CPT-4: 54006 03/05/2013 COMPLETE CBC W/AUTO DIFF WBC CPT-4: 70038 03/05/2013 A1C GLYCOSYLATED HEMOGLOBIN TEST CPT-4: 90140 013 DRAIN/INJECT JOINT/BURSA CPT-4: 47507 12/04/2012 METHYLPREDNISOLONE 40 MG INJ CPT-4: J1030 12/04/2012 TRIAMCINOLONE ACET INJ NOS CPT-4: J3301 12/04/2012 CEFTRIAXONE SODIUM INJECTION CPT-4: J0696 11/21/2012 THER/PROPH/DIAG INJ SC/IM CPT-4: 25616 11/21/2012 THER/PROPH/DIAG INJ SC/IM CPT-4: 86650 10/14/2012 METHYLPREDNISOLONE 40 MG INJ CPT-4: J1030 10/14/2012 TRIAMCINOLONE ACET INJ NOS CPT-4: J3301 10/14/2012 URINALYSIS NONAUTO W/O SCOPE CPT-4: 84757 09/27/2012 ROUTINE VENIPUNCTURE CPT-4: 58826 09/25/2012 ASSAY OF FREE THYROXINE CPT-4: 35937 09/25/2012 ASSAY THYROID STIM HORMONE CPT-4: 74020 09/25/2012 COMPREHEN METABOLIC PANEL CPT-4: 59290 09/25/2012 COMPLETE CBC W/AUTO DIFF WBC CPT-4: 00759 09/25/2012 C-REACTIVE PROTEIN CPT-4: 11198 09/25/2012 THER/PROPH/DIAG INJ SC/IM CPT-4: 23360 08/29/2012 METHYLPREDNISOLONE 40 MG INJ CPT-4: J1030 08/29/2012 TRIAMCINOLONE ACET INJ NOS CPT-4: J3301 08/29/2012 DESTRUCT PREMALG LESION (Cryosurgery) CPT-4: 31508 THER/PROPH/DIAG INJ SC/IM CPT-4: 90118 05/06/2012 METHYLPREDNISOLONE 40 MG INJ CPT-4: J1030 05/06/2012 TRIAMCINOLONE ACET INJ NOS CPT-4: J3301 05/06/2012 VITAMIN B 12 FOLIC ACID CPT-4: 54532|82004 05/06/2012 RBC SED RATE AUTOMATED CPT-4: 50483 05/06/2012 ROUTINE VENIPUNCTURE CPT-4: 38167 05/06/2012 ASSAY OF FREE THYROXINE CPT-4: 59564 05/06/2012 ASSAY THYROID STIM HORMONE CPT-4: 97600 05/06/2012 COMPREHEN METABOLIC PANEL CPT-4: 06690 05/06/2012 COMPLETE CBC W/AUTO DIFF WBC CPT-4: 86409 05/06/2012 ASSAY OF BLOOD/URIC ACID CPT-4: 54390 05/06/2012 THER/PROPH/DIAG INJ SC/IM CPT-4: 98047 03/19/2012 KETOROLAC TROMETHAMINE INJ CPT-4: J1885 03/19/2012 KETOROLAC TROMETHAMINE INJ CPT-4: J1885 01/30/2012 THER/PROPH/DIAG INJ SC/IM CPT-4: 03799 01/30/2012 PROMETHAZINE HCL INJECTION CPT-4: J2550 01/30/2012 THER/PROPH/DIAG INJ SC/IM CPT-4: 37888 01/24/2012 METHYLPREDNISOLONE 40 MG INJ CPT-4: J1030 01/24/2012 TRIAMCINOLONE ACET INJ NOS CPT-4: J3301 01/24/2012 THER/PROPH/DIAG INJ SC/IM CPT-4: 81794 09/13/2011 KETOROLAC TROMETHAMINE INJ CPT-4: J1885 09/13/2011 THER/PROPH/DIAG INJ SC/IM CPT-4: 13634 09/13/2011 PROMETHAZINE HCL INJECTION CPT-4: J2550 09/13/2011 CEFTRIAXONE SODIUM INJECTION CPT-4: J0696 07/20/2011 THER/PROPH/DIAG INJ SC/IM CPT-4: 75968 07/20/2011 THER/PROPH/DIAG INJ SC/IM CPT-4: 89873 07/20/2011 METHYLPREDNISOLONE INJECTION CPT-4: J2930 07/20/2011 URINALYSIS NONAUTO W/O SCOPE CPT-4: 19857 05/09/2011 CEFTRIAXONE SODIUM INJECTION CPT-4: J0696 05/09/2011 THER/PROPH/DIAG INJ SC/IM CPT-4: 01446 05/09/2011 THER/PROPH/DIAG INJ SC/IM CPT-4: 54197 05/09/2011 PROMETHAZINE HCL INJECTION CPT-4: J2550 05/09/2011 HYDRATION IV INFUSION INIT CPT-4: 13795 05/09/2011 DESTRUCT PREMALG LESION (Cryosurgery) CPT-4: 36221 DESTRUCT PREMALG LES 2-14 CPT-4: 52388 07/19/2010 REMOVAL OF SKIN TAGS <W/15 CPT-4: 49648 05/30/2010 THER/PROPH/DIAG INJ SC/IM CPT-4: 81854 04/05/2010 CEFTRIAXONE SODIUM INJECTION CPT-4: J0696 04/05/2010 TRIAMCINOLONE ACET INJ NOS CPT-4: J3301 04/05/2010 METHYLPREDNISOLONE 40 MG INJ CPT-4: J1030 04/05/2010 THER/PROPH/DIAG INJ SC/IM CPT-4: 87868 04/05/2010 TRIAMCINOLONE ACET INJ NOS CPT-4: J3301 03/09/2010 METHYLPREDNISOLONE 40 MG INJ CPT-4: J1030 03/09/2010 THER/PROPH/DIAG INJ SC/IM CPT-4: 01720 03/09/2010 THER/PROPH/DIAG INJ SC/IM CPT-4: 38356 03/09/2010 CEFTRIAXONE SODIUM INJECTION CPT-4: J0696 03/09/2010 [...] 1: 132/80 Code: 8480-6 BMI: 35.8 Code: 11760-4 Heart Rate 1: 88 bpm Height: 5'4" Respiratory Rate: 20 bpm SpO2: 95% Tempera ture: 36.9 (C) / 98.5 (F) Weight: 210 lbs 05/28/2019 Blood Pressure 1: 126/82 Code: 8480-6 BMI: 35.0 Code: 64484-2 Heart Rate 1: 88 bpm Height: 5'4" [...] 1: 128/90 Code: 8480-6 BMI: 37.2 Code: 21408-4 Heart Rate 1: 84 bpm Height: 5'4" Respiratory Rate: 20 bpm SpO2: 95% Tempera ture: 36.6 (C) / 97.8 (F) Weight: 217 lbs 08/27/2018 Blood Pressure 1: 128/88 Code: 8480-6 BMI: 38.3 Code: 30909-8 Heart Rate 1: 84 bpm Height: 5'4" [...] 1: 119/72 Code: 8480-6 BMI: 37.4 Code: 91299-3 Heart Rate 1: 82 bpm Height: 5'4" Respiratory Rate: 12 bpm SpO2: 94% Tempera ture: 35.2 (C) / 95.4 (F) Weight: 218 lbs 12/18/2017 Blood Pressure 1: 128/86 Code: 8480-6 BMI: 37.8 Code: 13362-5 Heart Rate 1: 84 bpm Height: 5'4" [...] 1: 128/82 Code: 8480-6 BMI: 35.5 Code: 50730-3 Heart Rate 1: 84 bpm Height: 5'4" [...] 1: 128/82 Code: 8480-6 BMI: 30.2 Code: 04603-2 Heart Rate 1: 80 bpm Height: 5'4" [...] 1: 128/86 Code: 8480-6 BMI: 32.8 Code: 06200-6 Heart Rate 1: 66 bpm Height: 5'4" Respiratory Rate: 18 bpm Temperature: 36 .3 (C) / 97.3 (F) Weight: 191 lbs 06/23/2013 Blood Pressure 1: 132/94 Code: 8480-6 BMI: 34.0 Code: 46904-4 Heart Rate 1: 84 bpm Height: 5'4" Respiratory Rate: 20 bpm Temperature: 36 .8 (C) / 98.2 (F) Weight: 198 lbs 05/26/2013 Blood Pressure 1: 114/80 Code: 8480-6 BMI: 35.0 Code: 22574-7 Heart Rate 1: 80 bpm Height: 5'4" Respiratory Rate: 20 bpm Temperature: 36 .4 (C) / 97.6 (F) Weight: 204 lbs 04/16/2013 Blood Pressure 1: 114/82 Code: 8480-6 BMI: 36.7 Code: 92090-4 Heart Rate 1: 84 bpm Height: 5'4" Respiratory Rate: 20 bpm Temperature: 36 .7 (C) / 98.0 (F) Weight: 214 lbs 03/05/2013 Blood Pressure 1: 136/90 Code: 8480-6 BMI: 37.1 Code: 94343-8 Heart Rate 1: 84 bpm Height: 5'4" [...] 1: 168/114 Code: 8480-6 BMI: 36.2 Code: 99699-5 Heart Rate 1: 104 bpm Height: 5'4" Respiratory Rate: 20 bpm Temperature: 36 .8 (C) / 98.2 (F) Weight: 211 lbs 11/22/2012 Blood Pressure 1: 128/90 Code: 8480-6 Heart Rate 1: 88 bpm Respiratory Rate: 20 bpm SpO2: 96% Temperature: 36.8 (C) / 98.2 (F) 11/21/2012 Blood Pressure 1: 146/100 Code: 8480-6 BMI: 35.7 Code: 33979-5 Heart Rate 1: 96 bpm Height: 5'4" [...] 1: 138/100 Code: 8480-6 BMI: 35.7 Code: 55665-1 Heart Rate 1: 96 bpm Height: 5'4" Respiratory Rate: 20 bpm Temperature: 36 .8 (C) / 98.2 (F) Weight: 208 lbs 05/06/2012 Blood Pressure 1: 154/102 Code: 8480-6 BMI: 34.7 Code: 28830-4 Heart Rate 1: 116 bpm Height: 5'4" Respiratory Rate: 20 bpm Temperature: 36 .8 (C) / 98.2 (F) Weight: 202 lbs 04/03/2012 Blood Pressure 1: 134/94 Code: 8480-6 BMI: 34.8 Code: 84399-3 Heart Rate 1: 108 bpm Height: 5'4" Respiratory Rate: 20 bpm Temperature: 36 .8 (C) / 98.2 (F) Weight: 203 lbs 03/19/2012 Blood Pressure 1: 148/106 Code: 8480-6 BMI: 35.0 Code: 10861-3 Heart Rate 1: 100 bpm Height: 5'4" Respiratory Rate: 20 bpm Temperature: 36 .6 (C) / 97.9 (F) Weight: 204 lbs 02/22/2012 Blood Pressure 1: 146/94 Code: 8480-6 He art Rate 1: 88 bpm 02/21/2012 Blood Pressure 1: 172/120 Code: 8480-6 B lood Pressure 2: 152/106 Code: 8480-6 Heart Rate 1: 116 bpm 02/20/2012 Blood Pressure 1: 160/100 Code: 8480-6 BMI: 32.0 Code: 80572-5 Heart Rate 1: 84 bpm Height: 5'7" Temperature: 36.5 (C) / 97.7 (F) Weight: 204 lbs 01/30/2012 Blood Pressure 1: 152/110 Code: 8480-6 BMI: 32.0 Code: 61521-6 Heart Rate 1: 116 bpm Height: 5'7" Respiratory Rate: 20 bpm Temperature: 37 .0 (C) / 98.6 (F) Weight: 204 lbs 01/24/2012 Blood Pressure 1: 146/100 Code: 8480-6 BMI: 32.0 Code: 38913-1 Heart Rate 1: 100 bpm Height: 5'7" Respiratory Rate: 20 bpm Temperature: 36 .7 (C) / 98.0 (F) Weight: 204 lbs 01/10/2012 Blood Pressure 1: 156/94 Code: 8480-6 BMI: 32.6 Code: 38119-3 Heart Rate 1: 72 bpm Height: 5'7" Respiratory Rate: 20 bpm Temperature: 36 .8 (C) / 98.2 (F) Weight: 208 lbs 12/11/2011 Blood Pressure 1: 146/100 Code: 8480-6 Heart Rat e 1: 116 bpm Height: 5'7" Respiratory Rate: 20 bpm Temperature: 36.9 (C) / 98.4 (F) We ight: 11/09/2011 Blood Pressure 1: 148/96 Code: 8480-6 BMI: 32.1 Code: 27163-9 Heart Rate 1: 116 bpm Height: 5'7" Respiratory Rate: 20 bpm Temperature: 36 .7 (C) / 98.0 (F) Weight: 205 lbs 09/13/2011 Blood Pressure 1: 126/88 Code: 8480-6 Heart Rate 1: 88 bpm Height: 5'7" Respiratory Rate: 20 bpm Temperature: 36.9 (C) / 98.4 (F) We ight: 08/31/2011 Blood Pressure 1: 118/82 Code: 8480-6 BMI: 32.0 Code: 74198-3 Heart Rate 1: 80 bpm Height: 5'7" Temperature: 36.4 (C) / 97.6 (F) Weight: 204 lbs 07/06/2011 Blood Pressure 1: 128/86 Code: 8480-6 BMI: 30.9 Code: 71128-3 Heart Rate 1: 92 bpm Height: 5'7" Respiratory Rate: 20 bpm Temperature: 36 .9 (C) / 98.4 (F) Weight: 197 lbs 06/06/2011 Blood Pressure 1: 112/74 Code: 8480-6 BMI: 31.0 Code: 97942-5 Heart Rate 1: 72 bpm Height: 5'7" [...] 1: 128/92 Code: 8480-6 BMI: 33.6 Code: 99601-7 Heart Rate 1: 104 bpm Height: 5'4" [...] Check-up Encounters Encounter Performer Location Codes Date ([id number]) OFFICE/OUTPATIENT VISIT EST Diagnosis: Essential (primary) hypertension[ICD10: I10] Diagnosis: Type 2 diabetes mellitus with hyperglycemia[ICD10: E11.65] Diagnosis: Allergic rhinitis[ICD10: J30.9] María Elena APPIAH DO [facility] CPT-4: 88798 01/13/2020 ([id number]) OFFICE/OUTPATIENT VISIT EST Diagnosis: Type 2 diabetes mellitus with hyperglycemia[ICD10: E11.65] María Elena JUARES LucioJj TD [employer] [facility] CPT-4: 81984 11/20/2019 ([id number]) OFFICE/OUTPATIENT VISIT EST Diagnosis: Ingrowing nail[ICD10: L60.0] Diagnosis: Type 2 diabetes mellitus with hyperglycemia[ICD10: E11.65] Kathleen Zuniga MARÍA ELENA LucioJj [employer] [facility] CPT-4: 08284 10/07/2019 ([id number]) OFFICE/OUTPATIENT VISIT EST Diagnosis: DM w/o complication type II, uncontrolled[ICD10: E11.65] Diagnosis: Hypertriglyceridemia[ICD10: E78.1] Diagnosis: Essential hypertension[ICD10: I10] María Elena JEAN Fabiola APPIAH [employer] [facility] CPT-4: 08894 09/30/2019 ([id number]) NURSE/OUTPATIENT VISIT EST Diagnosis: Essential (primary) hypertension[ICD10: I10] Diagnosis: Cervicalgia[ICD10: M54.2] Diagnosis: Hyperglycemia, unspecified[ICD10: R73.9] Diagnosis: Mixed hyperlipidemia[ICD10: E78.2] María Elena JEAN Fabiola APPIAH [employer] [facility] CPT-4: 43471 09/29/2019 ([id number]) OFFICE/OUTPATIENT VISIT EST Diagnosis: Essential (primary) hypertension[ICD10: I10] Diagnosis: Fall from bed, sequela[ICD10: W06.XXXS] María Elena REED LucioJj [employer] [facility] CPT-4: 96561 05/28/2019 ([id number]) NURSE/OUTPATIENT VISIT EST Diagnosis: Essential (primary) hypertension[ICD10: I10] María Elena JUARES LucioJj [employer] [facility] CPT-4: 53804 05/19/2019 ([id number]) OFFICE/OUTPATIENT VISIT EST Diagnosis: Essential (primary) hypertension[ICD10: I10] Diagnosis: Type 2 diabetes mellitus with hyperglycemia[ICD10: E11.65] Diagnosis: Intervertebral disc disorders with radiculopathy, 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 CPT-4: 29983 08/27/2018 ([id number]) OFFICE/OUTPATIENT VISIT EST Diagnosis: Acute recurrent sinusitis, unspecified[ICD10: J01.91] Diagnosis: Follicular disorder, unspecified[ICD10: L73.9] Diagnosis: Tinea corporis[ICD10: B35.4] María Elena APPIAH DO [facility] CPT-4: 86100 08/09/2018 ([id number]) OFFICE/OUTPATIENT VISIT EST Diagnosis: Tinea corporis[ICD10: B35.4] Diagnosis: Anxiety disorder, unspecified[ICD10: F41.9] Diagnosis: Menopausal and female climacteric states[ICD10: N95.1] María Elena APPIAH [facility] CPT-4: 79597 07/22/2018 ([id number]) NURSE/OUTPATIENT VISIT EST Diagnosis: Cellulitis of right toe[ICD10: L03.031] María Elena APPIAH [facility] CPT-4: 97008 06/19/2018 ([id number]) OFFICE/OUTPATIENT VISIT EST Diagnosis: Cellulitis of right toe[ICD10: L03.031] Kathleen APPIAH DO [facility] CPT-4: 43632 06/17/2018 ([id number]) OFFICE/OUTPATIENT VISIT EST Diagnosis: Migraine without aura, intractable, without status migrainosus[ICD10: G43.019] Diagnosis: Zoster without complications[ICD10: B02.9] Kathleen APPIAH DO [facility] CPT-4: 95074 05/16/2018 ([id number]) OFFICE/OUTPATIENT VISIT EST Diagnosis: Cellulitis of right lower limb[ICD10: L03.115] Kathleen APPIAH DO [facility] CPT-4: 41398 03/20/2018 ([id number]) OFFICE/OUTPATIENT VISIT EST Diagnosis: Cellulitis of right lower limb[ICD10: L03.115] Kathleen APPIAH DO [facility] CPT-4: 02461 03/18/2018 ([id number]) OFFICE/OUTPATIENT VISIT EST Diagnosis: Cellulitis of right lower limb[ICD10: L03.115] Kathleen APPIAH DO [facility] CPT-4: 18115 03/15/2018 ([id number]) OFFICE/OUTPATIENT VISIT EST Diagnosis: Acute sinusitis, unspecified[ICD10: J01.90] Kathleen APPIAH DO [facility] CPT-4: 29570 02/11/2018 ([id number]) NURSE/OUTPATIENT VISIT EST Diagnosis: Otitis media, unspecified, right ear[ICD10: H66.91] María Elena APPIAH DO [facility] CPT-4: 15592 02/01/2018 ([id number]) OFFICE/OUTPATIENT VISIT EST Diagnosis: Acute suppurative otitis media without spontaneous rupture of ear drum, left ear[ICD10: H66.002] Diagnosis: Abnormal weight gain[ICD10: R63.5] Diagnosis: Intervertebral disc disorders with radiculopathy, 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] Kathleen APPIAH DO [facility] CPT-4: 99 214 01/30/2018 ([id number]) PREV VISIT EST AGE 40-64 Diagnosis: Encounter for general adult medical examination without abnormal findings[ICD10: Z00.00] Diagnosis: Essential (primary) hypertension[ICD10: I10] Diagnosis: Mixed hyperlipidemia[ICD10: E78.2] Diagnosis: Type 2 diabetes mellitus with hyperglycemia[ICD10: E11.65] Diagnosis: 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] María Elena APPIAH DO [facility] CPT-4: 92423 12/18/2017 ([id number]) OFFICE/OUTPATIENT VISIT EST Diagnosis: Cellulitis of right toe[ICD10: L03.031] Diagnosis: Mixed hyperlipidemia[ICD10: E78.2] Diagnosis: Essential (primary) hypertension[ICD10: I10] Diagnosis: Hyperglycemia, unspecified[ICD10: R73.9] Diagnosis: Nontoxic goiter, 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] María Elena APPIAH DO [facility] CPT-4: 86932 12/10/2017 ([id number]) OFFICE/OUTPATIENT VISIT EST Diagnosis: Cellulitis of right toe[ICD10: L03.031] Diagnosis: Acute sinusitis, unspecified[ICD10: J01.90] Kathleen APPIAH DO [facility] CPT-4: 22399 12/07/2017 OFFICE/OUTPATIENT VISIT EST Diagnosis: Acute maxillary sinusitis, unspecified[ICD10: J01.00] Kathleen APPIAH DO [facility] CPT-4: 14205 10/08/2017 ([id number]) OFFICE/OUTPATIENT VISIT EST Diagnosis: Cellulitis of left toe[ICD10: L03.032] María Elena [employer] APPIAH [employer] [facility] CPT-4: 71397 09/21/2017 ([id number]) OFFICE/OUTPATIENT VISIT EST Diagnosis: Insomnia, unspecified[ICD10: G47.00] Diagnosis: Major depressive disorder, single episode, unspecified[ICD10: F32.9] Diagnosis: Anxiety disorder, unspecified[ICD10: F41.9] Diagnosis: Cellulitis of left toe[ICD10: L03.032] Diagnosis: Snoring[ICD10: R06.83] Kathleen APPIAH DO [facility] CPT-4: 63064 09/20/2017 ([id number]) OFFICE/OUTPATIENT VISIT EST Diagnosis: Cellulitis of left toe[ICD10: L03.032] María Elena APPIAH 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] Diagnosis: Primary insomnia[ICD10: F51.01] Diagnosis: Other fatigue[ICD10: R53.83] María Elena APPIAH DO [facility] CPT-4: 87406 04/10/2017 ([id number]) OFFICE/OUTPATIENT VISIT EST Diagnosis: Primary insomnia[ICD10: F51.01] Diagnosis: Localized edema[ICD10: R60.0] Diagnosis: 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] María Elena APPIAH [employer] [facility] CPT-4: 60617 12/13/2016 ([id number]) OFFICE/OUTPATIENT VISIT EST Diagnosis: Primary insomnia[ICD10: F51.01] Diagnosis: Cyanosis[ICD10: R23.0] María Elena B[employer] [facility] CPT-4: 80860 11/01/2016 ([id number]) PREV VISIT EST AGE 40-64 Diagnosis: Encounter for gynecological examination (general) (routine) without abnormal findings[ICD10: Z01.419] Diagnosis: Encounter for routine child health examination without abnormal findings[ICD10: Z00.129] María Elena APPIAH [employer] [facility] CPT-4: 69249 10/17/2016 ([id number]) OFFICE/OUTPATIENT VISIT EST Diagnosis: Other seasonal allergic rhinitis[ICD10: J30.2] María Elena APPIAH DO [facility] CPT-4: 64839 10/10/2016 ([id number]) OFFICE/OUTPATIENT VISIT EST Diagnosis: Pain in left arm[ICD10: M79.602] Diagnosis: Contact with and (suspected) exposure to potentially hazardous body fluids[ICD10: Z77.21] Diagnosis: 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, 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] Diagnosis: Unspecified open wound, right foot, sequela[ICD10: S91.301S] María Elena APPIAH DO [facility] CPT-4: 91913 09/19/2016 ([id number]) OFFICE/OUTPATIENT VISIT EST Diagnosis: Chronic sinusitis, unspecified[ICD10: J32.9] Diagnosis: Allergic rhinitis due to pollen[ICD10: J30.1] María Elena APPIAH DO [facility] CPT-4: 87274 08/24/2016 ([id number]) OFFICE/OUTPATIENT VISIT EST Diagnosis: Acute bronchitis, unspecified[ICD10: J20.9] María Elena APPIAH DO [facility] CPT-4: 62862 08/16/2016 ([id number]) OFFICE/OUTPATIENT VISIT EST Diagnosis: Otitis media, unspecified, right ear[ICD10: H66.91] Diagnosis: Acute bronchitis, unspecified[ICD10: J20.9] María Elena APPIAH [employer] [facility] CPT-4: 71876 08/10/2016 ([id number]) OFFICE/OUTPATIENT VISIT EST Diagnosis: Acute recurrent sinusitis, unspecified[ICD10: J01.91] Diagnosis: Allergic rhinitis due to pollen[ICD10: J30.1] María Elena APPIAH [employer] [facility] CPT-4: 31986 08/02/2016 ([id number]) OFFICE/OUTPATIENT VISIT EST Diagnosis: Pain in unspecified joint[ICD10: M25.50] María Elena APPIAH [employer] [facility] CPT-4: 67796 07/27/2016 OFFICE/OUTPATIENT VISIT EST Diagnosis: 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] Diagnosis: Acute recurrent sinusitis, unspecified[ICD10: J01.91] Diagnosis: Other fatigue[ICD10: R53.83] Diagnosis: Primary insomnia[ICD10: F51.01] Diagnosis: Pain in unspecified joint[ICD10: M25.50] María Elena APPIAH DO [facility] CPT-4: 64251 07/20/2016 ([id number]) OFFICE/OUTPATIENT VISIT EST Diagnosis: Blister (nonthermal), left great toe, initial encounter[ICD10: S90.422A] Loan APPIAH DO [facility] CPT-4: 99684 ([id number]) OFFICE/OUTPATIENT VISIT EST Diagnosis: Acute recurrent sinusitis, unspecified[ICD10: J01.91] María Elena APPIAH DO [facility] CPT-4: 40373 05/25/2016 ([id number]) OFFICE/OUTPATIENT VISIT EST Diagnosis: Acute sinusitis, unspecified[ICD10: J01.90] María Elena APPIAH DO [facility] CPT-4: 43994 04/26/2016 ([id number]) OFFICE/OUTPATIENT VISIT EST Diagnosis: Flushing[ICD10: R23.2] Diagnosis: Primary insomnia[ICD10: F51.01] María Elena APPIAH [facility] CPT-4: 81160 03/02/2016 ([id number]) OFFICE/OUTPATIENT VISIT EST Diagnosis: Other seasonal allergic rhinitis[ICD10: J30.2] Loan APPIAH [facility] CPT-4: 62484 02/09/2016 ([id number]) OFFICE/OUTPATIENT VISIT EST Diagnosis: Primary insomnia[ICD10: F51.01] Diagnosis: Urinary tract infection, site not specified[ICD10: N39.0] María Elena APPIAH [facility] CPT-4: 60645 01/24/2016 ([id number]) OFFICE/OUTPATIENT VISIT EST Diagnosis: Other specified disorders of Eustachian tube, bilateral[ICD10: H69.83] Diagnosis: Allergic rhinitis, unspecified[ICD10: J30.9] Loan APPIAH [facility] CPT-4: 65753 12/23/2015 ([id number]) OFFICE/OUTPATIENT VISIT EST Diagnosis: Acute recurrent sinusitis, unspecified[ICD10: J01.91] Diagnosis: 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] Diagnosis: Allergic rhinitis, unspecified[ICD10: J30.9] María Elena APPIAH DO [facility] CPT-4: 23398 12/08/2015 ([id number]) OFFICE/OUTPATIENT VISIT EST Diagnosis: Allergic rhinitis, unspecified[ICD10: J30.9] Diagnosis: Pain in unspecified joint[ICD10: M25.50] María Elena APPIAH DO [facility] CPT-4: 17197 10/07/2015 ([id number]) OFFICE/OUTPATIENT VISIT EST Diagnosis: Essential (primary) hypertension[ICD10: I10] María Elena APPIAH DO [facility] CPT-4: 27070 10/06/2015 OFFICE/OUTPATIENT VISIT EST Diagnosis: Localized enlarged lymph nodes[ICD10: R59.0] Diagnosis: Local infection of the skin and subcutaneous tissue, unspecified[ICD10: L08.9] June Sandra MARÍA ELENA APPIAH DO [facility] CPT- 4: 50287 09/14/2015 ([id number]) OFFICE/OUTPATIENT VISIT EST Diagnosis: Essential (primary) hypertension[ICD10: I10] Diagnosis: Actinic keratosis[ICD10: L57.0] María Elena APPIAH DO [facility] CPT-4: 64675 09/07/2015 ([id number]) OFFICE/OUTPATIENT VISIT EST Diagnosis: Essential (primary) hypertension[ICD10: I10] Diagnosis: Acute stress reaction[ICD10: F43.0] María Elena APPIAH DO [facility] CPT-4: 35876 08/18/2015 ([id number]) OFFICE/OUTPATIENT VISIT EST Diagnosis: Essential (primary) hypertension[ICD10: I10] María Elena APPIAH DO [facility] CPT-4: 53451 07/07/2015 ([id number]) OFFICE/OUTPATIENT VISIT EST Diagnosis: Essential (primary) hypertension[ICD10: I10] María Elena APPIAH DO [facility] CPT-4: 98446 06/24/2015 ([id number]) OFFICE/OUTPATIENT VISIT EST Diagnosis: Essential (primary) hypertension[ICD10: I10] María Elena APPIAH [facility] CPT-4: 27767 06/21/2015 ([id number]) OFFICE/OUTPATIENT VISIT EST Diagnosis: Essential (primary) hypertension[ICD10: I10] Diagnosis: Mixed hyperlipidemia[ICD10: E78.2] Diagnosis: Acute stress reaction[ICD10: F43.0] Diagnosis: Primary insomnia[ICD10: F51.01] María Elena APPIAH [facility] CPT-4: 51333 06/16/2015 ([id number]) OFFICE/OUTPATIENT VISIT EST Diagnosis: INSOMNIA NOS[ICD9: 780.52] Diagnosis: HYPERTENSION[ICD9: 401.9] Diagnosis: Stress reaction[ICD9: 308.9] María Elena APPIAH [facility] CPT-4: 97785 06/02/2015 ([id number]) OFFICE/OUTPATIENT VISIT EST Diagnosis: HYPERTENSION[ICD9: 401.9] Diagnosis: Stress reaction[ICD9: 308.9] María Elena APPIAH 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 CPT-4: 86020 05/10/2015 ([id number]) OFFICE/OUTPATIENT VISIT EST Diagnosis: SINUSITIS, ACUTE[ICD9: 461.9] Diagnosis: ALLERGIC RHINITIS[ICD9: 477.9] Diagnosis: DERMATITIS NOS[ICD9: 692.9] María Elena Rodríguez ORI [facility] CPT-4: 41380 03/16/2015 OFFICE/OUTPATIENT VISIT EST Diagnosis: Otitis media[ICD9: 382.9] Diagnosis: SINUSITIS, ACUTE[ICD9: 461.9] June Flores MARÍA ELENA APPIAH [facility] CPT-4: 80683 09/11/2014 ([id number]) OFFICE/OUTPATIENT VISIT EST Diagnosis: HYPERLIPIDEMIA NEC/NOS[ICD9: 272.4] María Elena MONTEROGOMEZ COLON Fabiola APPIAH [facility] CPT-4: 87645 08/31/2014 ([id number]) OFFICE/OUTPATIENT VISIT EST Diagnosis: - I - HYPERTENSION[ICD9: 401.9] Diagnosis: HYPERLIPIDEMIA NEC/NOS[ICD9: 272.4] María Elena APPIAH DO [facility] CPT-4: 67595 08/27/2014 ([id number]) OFFICE/OUTPATIENT VISIT EST Diagnosis: ABDOMINAL PAIN[ICD9: 789.00] Diagnosis: DYSPEPSIA[ICD9: 536.8] Diagnosis: Thoracic back pain[ICD9: 724.1] María Elena APPIAH DO [facility] CPT-4: 06874 07/21/2014 ([id number]) OFFICE/OUTPATIENT VISIT EST Diagnosis: ALLERGIC RHINITIS[ICD9: 477.9] María Elena APPIAH DO [facility] CPT-4: 68309 07/15/2014 ([id number]) OFFICE/OUTPATIENT VISIT EST Diagnosis: EDEMA[ICD9: 782.3] Diagnosis: Chronic insomnia[ICD9: 780.52] María Elena APPIAH [facility] CPT-4: 91672 05/18/2014 ([id number]) OFFICE/OUTPATIENT VISIT EST Diagnosis: Thyromegaly[ICD9: 240.9] Diagnosis: - I - HYPERTENSION[ICD9: 401.9] Diagnosis: ROUTINE MEDICAL EXAM[ICD9: V70.0] Diagnosis: EDEMA[ICD9: 782.3] María Elena APPIAH [facility] CPT-4: 32375 05/14/2014 OFFICE/OUTPATIENT VISIT EST Diagnosis: BRONCHITIS, ACUTE[ICD9: 466.0] Diagnosis: SINUSITIS, ACUTE[ICD9: 461.9] María Elena APPIAH DO [facility] CPT-4: 27012 04/21/2014 OFFICE/OUTPATIENT VISIT EST Diagnosis: SINUSITIS, ACUTE[ICD9: 461.9] June Sandra MARÍA ELENA APPIAH DO [facility] CPT-4: 19997 03/04/2014 ([id number]) OFFICE/OUTPATIENT VISIT EST Diagnosis: VACCINE FOR TDAP[ICD10: Z23] María Elena APPIAH [facility] CPT-4: 72457 02/27/2014 ([id number]) OFFICE/OUTPATIENT VISIT EST Diagnosis: Seborrheic keratoses, inflamed[ICD9: 702.11] Diagnosis: ACTINIC KERATOSIS[ICD9: 702.0] Diagnosis: INSOMNIA NOS[ICD9: 780.52] María Elena Valdes KRISTYN [facility] CPT-4: 54246 01/13/2014 OFFICE/OUTPATIENT VISIT EST 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] Diagnosis: ALLERGIC RHINITIS[ICD9: 477.9] Diagnosis: Serous otitis media[ICD9: 381.4] María Elena APPIAH [facility] CPT-4: 47609 12/24/2013 ([id number]) OFFICE/OUTPATIENT VISIT EST Diagnosis: SINUSITIS, ACUTE[ICD9: 461.9] Diagnosis: ALLERGIC RHINITIS[ICD9: 477.9] 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] María Elena [facility] CPT-4: 81526 11/12/2013 ([id number]) OFFICE/OUTPATIENT VISIT EST Diagnosis: ALLERGIC RHINITIS[ICD9: 477.9] Diagnosis: SINUSITIS, ACUTE[ICD9: 461.9] María Elena [facility] CPT-4: 19253 10/21/2013 ([id number]) OFFICE/OUTPATIENT VISIT EST Diagnosis: ASYMPTOMATIC VARICOSE VEINS[ICD9: 454.9] Diagnosis: INSOMNIA NOS[ICD9: 780.52] María Elena [facility] CPT-4: 97467 09/22/2013 OFFICE/OUTPATIENT VISIT EST Diagnosis: SINUSITIS, ACUTE[ICD9: 461.9] June Flores MARÍA ELENA [facility] CPT-4: 24776 08/27/2013 ([id number]) OFFICE/OUTPATIENT VISIT EST Diagnosis: CEPHALGIA[ICD9: 784.0] Diagnosis: CEPHALGIA, TENSION[ICD9: 307.81] 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] María Elena APPIAH DO [facility] CPT-4: 84309 08/04/2013 ([id number]) OFFICE/OUTPATIENT VISIT EST Diagnosis: Cervicalgia[ICD9: 723.1] Diagnosis: SPASM OF MUSCLE[ICD9: 728.85] Diagnosis: CEPHALGIA, TENSION[ICD9: 307.81] María Elena APPIAH DO [facility] CPT-4: 98371 07/23/2013 ([id number]) OFFICE/OUTPATIENT VISIT EST 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] Diagnosis: ALLERGIC RHINITIS[ICD9: 477.9] María Elena APPIAH DO [facility] CPT-4: 74261 06/23/2013 ([id number]) OFFICE/OUTPATIENT VISIT EST Diagnosis: ALLERGIC RHINITIS[ICD9: 477.9] Diagnosis: ACUTE SEROUS OTITIS MEDIA[ICD9: 381.01] 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] María Elena APPIAH DO [facility] CPT-4: 04785 05/26/2013 ([id number]) OFFICE/OUTPATIENT VISIT EST Diagnosis: HYPERTENSION[ICD9: 401.9] Diagnosis: EDEMA[ICD9: 782.3] Diagnosis: Serous otitis media[ICD9: 381.4] María Elena APPIAH DO [facility] CPT-4: 60389 04/16/2013 ([id number]) OFFICE/OUTPATIENT VISIT EST Diagnosis: SINUSITIS, ACUTE[ICD9: 461.9] Diagnosis: ALLERGIC RHINITIS[ICD9: 477.9] Diagnosis: EDEMA[ICD9: 782.3] Diagnosis: Thyromegaly[ICD9: 240.9] Diagnosis: MALAISE AND FATIGUE[ICD9: 780.79] María Elena APPIAH [facility] CPT-4: 69701 03/05/2013 ([id number]) OFFICE/OUTPATIENT VISIT EST Diagnosis: PAIN, LOWER BACK[ICD9: 724.2] Diagnosis: SPASM OF MUSCLE[ICD9: 728.85] María Elena APPIAH DO [facility] CPT-4: 99125 12/23/2012 OFFICE/OUTPATIENT VISIT EST Diagnosis: Low back pain[ICD9: 724.2] Lashawn Hicks KRISTYN KENTER [facility] CPT-4: 97618 12/16/2012 ([id number]) OFFICE/OUTPATIENT VISIT EST Diagnosis: PAIN, LOWER BACK[ICD9: 724.2] Diagnosis: SCIATICA[ICD9: 724.3] Diagnosis: Lumbar herniated disc[ICD9: 722.10] María Elena COLON LucioJj TD [facility] CPT-4: 08346 12/09/2012 ([id number]) OFFICE/OUTPATIENT VISIT EST Diagnosis: PAIN, LOWER BACK[ICD9: 724.2] Diagnosis: SCIATICA[ICD9: 724.3] Diagnosis: LUMBAR DISC DISPLACEMENT[ICD9: 722.10] María Elena MARIN LucioJj TD [facility] CPT-4: 74612 12/04/2012 OFFICE/OUTPATIENT VISIT EST Diagnosis: Pneumonia[ICD9: 486] Mary Hicks TD [facility] CPT-4: 07470 11/22/2012 ([id number]) OFFICE/OUTPATIENT VISIT EST Diagnosis: PNEUMONIA, ORGANISM[ICD9: 486] Diagnosis: Exacerbation of RAD (reactive airway disease)[ICD9: 493.92] María Elena JUARES LucioJj TD [facility] CPT-4: 79127 11/21/2012 OFFICE/OUTPATIENT VISIT EST Diagnosis: HYPERTENSION[ICD9: 401.9] Diagnosis: Cephalgia[ICD9: 784.0] Lashawn Hicks SEAMUSMINDIVICTORINO [facility] CPT-4: 01837 10/29/2012 ([id number]) OFFICE/OUTPATIENT VISIT EST Diagnosis: MALAISE AND FATIGUE[ICD9: 780.79] Diagnosis: ARTHRALGIA-MULTIPLE SITES[ICD9: 719.49] María Elena Hicks TD [facility] CPT-4: 62118 10/14/2012 ([id number]) OFFICE/OUTPATIENT VISIT EST Diagnosis: URINARY FREQUENCY[ICD9: 788.41] María Elena Hicks TD [facility] CPT-4: 33117 09/27/2012 ([id number]) OFFICE/OUTPATIENT VISIT EST Diagnosis: MALAISE AND FATIGUE[ICD9: 780.79] Diagnosis: ARTHRALGIA-MULTIPLE SITES[ICD9: 719.49] María Elena [facility]desJj [facility] CPT-[facility]: 35963 09/25/2012 ([id number]) OFFICE/OUTPATIENT VISIT EST Diagnosis: SINUSITIS, ACUTE[ICD9: 461.9] 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] María Elena ValdesJj TD [facility] CPT-4: 35146 08/29/2012 OFFICE/OUTPATIENT VISIT EST Diagnosis: ACTINIC KERATOSIS[ICD9: 702.0] Diagnosis: Inflamed seborrheic keratosis[ICD9: 702.11] Diagnosis: Skin cancer of face[ICD9: 173.31] Diagnosis: HYPERTENSION[ICD9: 401.9] María Elena Waymindivictorino ValdesJj [facility] CPT-4: 24363 08/12/2012 ([id number]) OFFICE/OUTPATIENT VISIT EST Diagnosis: ARTHRALGIA-MULTIPLE SITES[ICD9: 719.49] Diagnosis: GOUT[ICD9: 274.9] Diagnosis: HYPERTENSION[ICD9: 401.9] Diagnosis: Tachycardia[ICD9: 785.0] María Elena ELLISLINE LucioJj [facility] CPT-4: 94674 05/06/2012 ([id number]) OFFICE/OUTPATIENT VISIT EST Diagnosis: INSOMNIA NOS[ICD9: 780.52] María Elena Seamusabbey JUARES LucioJj [facility] CPT-4: 11012 04/03/2012 ([id number]) OFFICE/OUTPATIENT VISIT EST Diagnosis: INSOMNIA NOS[ICD9: 780.52] Diagnosis: HYPERTENSION[ICD9: 401.9] Diagnosis: MIGRAINE NOS/NOT INTRCBL[ICD9: 346.90] María Elena Seamusabbey MARIN LucioJj [facility]: 49566 03/19/2012 ([id number]) OFFICE/OUTPATIENT VISIT EST Diagnosis: CELLULITIS[ICD9: 682.9] Diagnosis: Ankle pain[ICD9: 719.47] Diagnosis: HYPERTENSION[ICD9: 401.9] María Elena JUARES LucioJj [facility] CPT-4: 44872 02/20/2012 ([id number]) OFFICE/OUTPATIENT VISIT EST Diagnosis: MIGRAINE NOS/NOT INTRCBL[ICD9: 346.90] Diagnosis: Vomiting[ICD9: 787.03] María Elena JUARES LucioJj CIRO Bazzi [facility] CPT-4: 28495 01/30/2012 ([id number]) OFFICE/OUTPATIENT VISIT EST Diagnosis: EDEMA[ICD9: 782.3] Diagnosis: HYPERTENSION[ICD9: 401.9] Diagnosis: ALLERGIC RHINITIS[ICD9: 477.9] Diagnosis: ARTHRALGIA-MULTIPLE SITES[ICD9: 719.49] María Elena Hicks [facility]AMUSMINDIVICTOR[facility] CPT-4: 06621 01/24/2012 ([id number]) OFFICE/OUTPATIENT VISIT EST Diagnosis: SPASM OF MUSCLE[ICD9: 728.85] Diagnosis: Thoracic back pain[ICD9: 724.1] Diagnosis: Cervical pain[ICD9: 723.1] María Elena Hicks KRISTYN MUMTAZ [facility] CPT-4: 56888 01/10/2012 OFFICE/OUTPATIENT VISIT EST Diagnosis: PAIN, LOWER BACK[ICD9: 724.2] Diagnosis: LUMBAR DISC DISPLACEMENT[ICD9: 722.10] María Elena MARIN LucioJj TD [facility] CPT-4: 90753 12/11/2011 OFFICE/OUTPATIENT VISIT EST Diagnosis: MIGRAINE NOS/NOT INTRCBL[ICD9: 346.90] Diagnosis: SINUSITIS, ACUTE[ICD9: 461.9] María Elena Hicks SEAMUSMINDIVICTOR[facility] CPT-4: 78797 11/09/2011 OFFICE/OUTPATIENT VISIT EST Diagnosis: MIGRAINE NOS/NOT INTRCBL[ICD9: 346.90] Diagnosis: LYMPHADENOPATHY[ICD9: 785.6] María Elena Hicks TD [facility] CPT-4: 65100 09/13/2011 OFFICE/OUTPATIENT VISIT EST Diagnosis: MALAISE AND FATIGUE[ICD9: 780.79] Diagnosis: ARTHRALGIA-MULTIPLE SITES[ICD9: 719.49] María Elena Hicks TD [facility] CPT-4: 32538 08/31/2011 OFFICE/OUTPATIENT VISIT EST Diagnosis: SINUSITIS, ACUTE[ICD9: 461.9] María Elena APPIAH DO [facility] CPT-4: 21659 07/20/2011 OFFICE/OUTPATIENT VISIT EST Diagnosis: HYPERTENSION[ICD9: 401.9] Diagnosis: PAIN, LOWER BACK[ICD9: 724.2] Diagnosis: SPASM OF MUSCLE[ICD9: 728.85] María Elena APPIAH DO [facility] CPT-4: 68379 07/06/2011 OFFICE/OUTPATIENT VISIT EST Diagnosis: MIGRAINE NOS/NOT INTRCBL[ICD9: 346.90] Diagnosis: HYPERTENSION[ICD9: 401.9] María Elena MOJICAR DO [facility] CPT-4: 27243 05/22/2011 OFFICE/OUTPATIENT VISIT EST Diagnosis: SINUSITIS, ACUTE[ICD9: 461.9] Diagnosis: MIGRAINE NOS/NOT INTRCBL[ICD9: 346.90] Diagnosis: Dehydration[ICD9: 276.51] Diagnosis: Vomiting[ICD9: 787.03] María Elena Bazzi DO [facility] CPT-4: 51875 05/09/2011 ([id number]) OFFICE/OUTPATIENT VISIT EST María Elena ISAAC UJARED S. SEAMUSNDER DO [facility] CPT-4: 46207 02/14/2011 ([id number]) OFFICE/OUTPATIENT VISIT EST María Elena ISAAC UJARED S. ORENDER DO [facility] CPT-4: 31707 02/03/2011 ([id number]) OFFICE/OUTPATIENT VISIT EST María Elena ISAAC UELINE S. ORENDER DO [facility] CPT-4: 48575 01/31/2011 ([id number]) OFFICE/OUTPATIENT VISIT EST María Elena Td ISAAC UJARED S. SEAMUSNDER DO [facility] CPT-4: 53046 01/25/2011 ([id number]) OFFICE/OUTPATIENT VISIT EST María Elenamarcella MARIN S. ORENDER DO [facility] CPT-4: 84333 01/18/2011 ([id number]) OFFICE/OUTPATIENT VISIT EST María Elena ISAAC [facility]ED [facility] CPT-4: 14314 11/29/2010 ([id number]) OFFICE/OUTPATIENT VISIT, EST María Elena REED [facility] CPT-4: 31158 10/10/2010 ([id number]) OFFICE/OUTPATIENT VISIT, EST María Elena [facility] CPT-4: 30050 06/07/2010 ([id number]) OFFICE/OUTPATIENT VISIT, EST María Elena [facility] CPT-4: 84904 04/27/2010 ([id number]) OFFICE/OUTPATIENT VISIT, EST María Elena [facility] CPT-4: 05427 04/05/2010 ([id number]) OFFICE/OUTPATIENT VISIT, EST María Elena [facility] CPT-4: 10437 03/09/2010 ([id number]) OFFICE/OUTPATIENT VISIT, EST María Elena [facility] CPT-4: 05485 03/03/2010 ([id number]) OFFICE/OUTPATIENT VISIT, EST María Elena [facility] CPT-4: 35855 01/17/2010 ([id number]) PREV VISIT, EST, AGE 40-64 María Elena CO[facility]MAN [facility] CPT-4: 03003 12/27/2009 Plan of Care Planned Activity Notes [...] E11.65 01/13/2020 Appointment: [facility] [phone] [facility] [facility] 01/13/2020 Patient Education: lisinopril- [employer] [id number] Completed 01/13/2020 Patient Education: glimepiride- [employer] [id number] Completed 01/13/2020 Appointment: María Elena [facility]iah [facility] [phone] [facility] [facility] CANCELED 11/26/2019 Visit Diagnosis Plan: Type 2 diabetes mellitus with hy perglycemia Discussion: Januvia 100mg daily Glimepride 2mg po BID Accuchecks BID Call in 2 weeks with BS readings Get formulary book ICD-9 : 250.02 ICD-10 : E11.65 11/20/2019 Appointment: María Elena [facility]iah [facility] [phone] [facility] [facility] 11/20/2019 Patient Education: glimepiride- [employer]on [id number] Completed 11/20/2019 Patient Education: Januvia- [employer]on [id number] Completed 11/20/2019 Visit Diagnosis Plan: Ingrowing nail [...] E11.65 10/07/2019 Appointment: Kathleen Zuniga [address] [facility] US OFFICE SURGERY 10/07/2019 Visit Diagnosis [...] E11.65 09/30/2019 Appointment: María Elena Appiah WPtel: [address] [place], [place] [phone] [place] CHECK UP 09/30/2019 Patient Education: Premarin- [employer] C[employer]on [id number] https://www.HiMom.com/samplemd/resources/getResource/61/55545r88-p999-2qzz-t7 Completed 09/30/2019 Appointment: María Elena Appiah WPtel: [address] [place], [place] [phone] [place] LAB 09/29/2019 Appointment: María Elena Appiah WPtel: [address] [place], [place] [phone] [place] Won't have the new insurance till [...] W06.XXXS 05/28/2019 Appointment: María Elena Appiah WPtel: [address] [place], [place] [phone] [place] FOLLOW UP 05/28/2019 Appointment: María Elena Appiah WPtel: [address] [place] [address] US BP CHECK 05/19/2019 Visit Diagnosis Plan: [...] Z79.890 01/22/2019 Appointment: María Elena Appiah WPtel: [address] [place], [place] [phone] [place] FOLLOW UP 01/22/2019 Patient Education: estradiol- [employer] C[employer]on [id number] https://www.HiMom.SIVI/samplemd/resources/getResource/61/545h368n-3mn2-1w51-7s Completed 01/22/2019 Appointment: María Elena Appiahtel: [address] [place], [place] [phone] [place] CANCELED 01/20/2019 Appointment: María Elena Appiah WPtel: [address] [place], [place] [phone] [place] LM NO SHOW 01/06/2019 Appointment: María Elena Appiah WPtel: [address] [place] [address] US CANCELED 10/17/2018 Appointment: María Elena Appiah WPtel: [address] [place] [address] US BP CHECK 10/09/2018 Visit Diagnosis Plan: [...] I10 09/30/2018 Appointment: María Elena Appiah WPtel: [address] [place] [address] US FOLLOW UP 09/30/2018 Visit Diagnosis Plan: [...] F51.01 08/27/2018 Appointment: María Elena Appiah WPtel: [address] [place] [address] ACUTE ILLNESS 08/27/2018 Appointment: María Elena Appiah WPtel: [address] [place] [address] US Patient stated she went out to [...] Tyle... 08/09/2018 Appointment: María Elena Appiah WPtel: [address] [place] [address] ACUTE ILLNESS 08/09/2018 Appointment: María Elena Appiahtel: [address] [place] [address] NO SHOW 08/08/2018 Visit Diagnosis Plan: Anxiety [...] : B35.4 07/22/2018 Appointment: María Elena Appiahtel: [address] [place] [address] ACUTE ILLNESS 07/22/2018 Appointment: María Elena Appiahtel: [address] [place] [address] US INJECTION 06/19/2018 Patient Education: Patient Medication [...] : L03.031 06/17/2018 Appointment: Kathleen Zuniga [address] ACUTE ILLNESS 06/17/2018 Patient Education: Patient [...] : B02.9 05/16/2018 Appointment: Kathleen Zuniga [address] [place] [phone] ACUTE ILLNESS 05/16/2018 Patient Education: Patient Medication [...] ICD-10 : L03.115 03/20/2018 Appointment: Kathleen Zuniga [address] [place], [place] [address] FOLLOW UP 03/20/2018 Patient Education: Patient Medication [...] : L03.115 03/18/2018 Appointment: Kathleen Zuniga [address] [place] [phone] FOLLOW UP 03/18/2018 Patient Education: Patient Medication [...] : L03.115 03/15/2018 Appointment: Kathleen Zuniga [address] [place] [phone] ACUTE ILLNESS 03/15/2018 Patient Education: Patient Medication [...] : J01.90 02/11/2018 Appointment: Kathleen Zuniga [address] [phone] ACUTE ILLNESS 02/11/2018 Patient Education: Patient Medication Summary Completed 02/11/2018 Appointment: María Elena Appiah WPtel: [phone] [id number] INJECTION 02/01/2018 Patient Education: Patient Medication Summary [...] ICD-10 : M51.16 01/30/2018 Appointment: Kathleen Zuniga [address] [place] [address] ACUTE ILLNESS 01/30/2018 Patient Education: Patient Medication [...] 12/18/2017 Appointment: María Elena Appiah WPtel: [phone] Annual Well Visit 12/18/2017 Patient Education: Patient Medication Summary Completed 12/18/2017 Care Plan: Referral Order SNOMED-CT : [id number] Pending 12/18/2017 Appointment: María Elena Appiah WPtel: [phone] [id number] [place] INJECTION 12/10/2017 Patient Education: Patient Medication [...] ICD-10 : L03.031 12/07/2017 Appointment: Kathleen Zuniga [address] [place] [address] ACUTE ILLNESS 12/07/2017 Patient Education: Patient Medication [...] ICD-10 : J01.00 10/08/2017 Appointment: Kathleen Zuniga [address] [place], [place] [phone] ACUTE ILLNESS 10/08/2017 Patient Education: Patient Medication Summary Completed 10/08/2017 Appointment: María Elena Appiah WPtel: [phone] [id number] [place] INJECTION 09/21/2017 Patient Education: Patient Medication [...] ICD-10 : R06.83 09/20/2017 Appointment: Kathleen Zuniga [address] [place], [place] [id number] ACUTE ILLNESS 09/20/2017 Patient Education: Patient [...] : L60.0 08/29/2017 Appointment: Kathleen Zuniga [address] OFFICE SURGERY 08/29/2017 Patient Education: Patient Medication Summary Completed 08/29/2017 Visit Diagnosis Plan: Actinic keratosis Discussion: Cr yotherapy as above ICD-9 : 702.0 ICD-10 : L57.0 08/01/2017 Appointment: María Elena Appiah WPtel: [address] [place] [address] OFFICE SURGERY 08/01/2017 Patient Education: Patient Medication Summary Completed 08/01/2017 Appointment: María Elena Appiah WPtel: [address] [place] [address] PATIENT THOUGHT APPOINTMENT WAS TOMORROW 07/26/17 CALLED 15 MINUTES BEFORE APPT TO SAY SHE DIDN'T HAVE ANYONE TO COVER HER BUSINESS AND WOULD NOT MAKE IT NO SHOW 07/25/2017 Visit Diagnosis Plan: Cellulitis of left toe Discussio n: Clindamycin and notify if worsening or persistis ICD-9 : 681.10 ICD-10 : L03.032 07/19/2017 Appointment: María Elena Appiah WPtel: [address] [place] [address] MEDICATION REVIEW 07/19/2017 Patient Education: Patient Medication Summary Completed 07/19/2017 Appointment: María Elena Appiah WPtel: [address] [place] [place] [address] CANCELED 07/04/2017 Visit Diagnosis Plan: Generalized hyperhidrosis Discus ian: CBC, CMP, TSH, free T4 ordered to assess. will review labs. ICD-9 : 780.8 ICD-10 : R61 06/27/2017 Visit Diagnosis Plan: Chronic sinusitis, unspecified D iscussion: Referral sent to dr. albarado in [place] per patient request. patient has been treated multiple times for sinus infections with no recovery. patient was seen by dr sanchez in the past with no interventions. patient has deviated septum which may be affecting her sinuses. 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, including hip Discussion: Shave removal of above lesio n--sent to pathology ICD-9 : 216.7 ICD-10 : D23.72 01/24/2017 Appointment: María Elena Appiah WPtel: [address] [place], [place] [phone] 01/23 confirmed ~sl OFFICE SURGERY 01/24/2017 Patient Education: Patient Medication Summary Completed 01/24/2017 Appointment: Loan Sánchez [address] [place], [place] [id number] 01/09 rescheduled~sl RESCHEDULED 01/15/2017 Visit Diagnosis Plan: [...] L81.4 12/13/2016 Appointment: María Elena Appiah WPtel: [address] [place], [place] [id number] [place] 12/12 confirmed ~sl MEDICATION REVIEW 12/13/2016 Patient Education: Patient Medication Summary Completed 12/13/2016 Appointment: María Elena Appiah WPtel: [address] [place], [place] [phone] [place] rescheduled for 12/13/16 at 11am RESCHEDULED 0 12/06/2016 Appointment: María Elena Appiah WPtel: [address] [place] [id number] [place] CANCELED 11/23/2016 Patient Education: Patient Medication [...] F51.01 11/01/2016 Appointment: María Elena Appiah WPtel: [address] [place], [place] [id number] [place] 10/31 lm `sl 11/01 lm` MEDICATION REVIEW 017 Patient Education: Patient Medication Summary Completed 11/01/2016 Referral: Canelo Overton WPtel: [address] [id number] [place] Referral Initiated 10/30/2016 Visit Diagnosis Plan: [...] 10/17/2016 Appointment: María Elena Appiah WPtel: [address] [place], [place] [id number] 10/16 confirmed ~sl PAP 10/17/2016 Patient Education: Patient Medication Summary Completed 10/17/2016 Care Plan: MAMMOGRAM SCREENING LOINC : 2 6347-5 Pending 10/17/2016 Visit Diagnosis Plan: Other seasonal allergic rhinitis Discussion: Decadron/Garamycin Nasal [place] Mix Too soon for steroid Retry zyrtec 10mg daily ICD-9 : 477.9 ICD-10 : J30.2 10/10/2016 Appointment: María Elena Appiah WPtel: [address] [place], [place] [id number] FOLLOW UP 10/10/2016 Patient Education: Patient Medication Summary Completed 10/10/2016 Appointment: María Elena Appiahtel: [address] [place], [place] [id number] 10/02 reschedule `sl RESCHEDULED 10/02/2016 Visit Plan: See surgery for removal of n ew left arm lesion and right foot lesion Lyrica to use next month for left arm paresthesias Continue current meds Discussed sunscreen/sunblock combo 09/19/2016 Appointment: María Elena Appiahtel: [address] [place], [place] [id number] 09/18 confirmed ~sl FOLLOW UP 09/19/2016 Patient Education: Patient Medication Summary Completed 09/19/2016 Patient Education: Patient Medication Summary Completed 09/18/2016 Care Plan: MAMMOGRAM BOTH BREASTS LOINC : 90506-8 Pending 09/18/2016 Visit Plan: Discussed that needs [...] sinuses 08/24/2016 Appointment: María Elena Appiah WPtel: [address] [place] [address] ACUTE ILLNESS 08/24/2016 Patient Education: Patient Medication Summary Completed 08/24/2016 Patient Education: Patient Medication Summary Completed 08/23/2016 Care Plan: MAMMOGRAM SCREENING [facility] : 2 6347-5 Pending 08/23/2016 Visit Plan: Finish doxycycline Add Breo 100/25 1 p BID for 2 weeks If not improving within next 2 days will get CXR 08/16/2016 Appointment: María Elena Appiah WPtel: [address] [place] [address] ACUTE ILLNESS 08/16/2016 Patient Education: Patient Medication Summary Completed 08/16/2016 Visit Plan: Supportive care. Rest, Fluid s, Tylenol/Motrin prn fever or bodyaches. Notify if worsening symptoms. Doxycyline and Prednisone 08/10/2016 Appointment: María Elena Appiah WPtel: [address] [place] [address] 08/09 lm`sl....confirmed-sp FOLLOW UP 09/2015 Patient Education: Patient Medication Summary Completed 08/10/2016 Visit Plan: Saline nasal flushes prn. Ty lenol/Motrin prn headache. Notify if persists/symptoms worsening. Dexamethasone 8mg IM today May use coricedan and mucinex 08/02/2016 Appointment: María Elena Appiah WPtel: [address] [place] [address] ACUTE ILLNESS 08/02/2016 Patient Education: Patient Medication Summary Completed 08/02/2016 Visit Plan: Cryotherapy as above and lef t forearm lesion removal as above with 5-0 punch biopsy and sent to path Return in 10 days for suture removal 08/01/2016 Appointment: María Elena Appiah WPtel: [address] [place] [address] 07/31 confirmed`~ OFFICE SURGERY 08/01/2016 Patient Education: Patient Medication Summary Completed 08/01/2016 Visit Plan: Stop clindamycin Check CBC, CMP, ESR now/STAT 07/27/2016 Appointment: María Elena Appiah WPtel: [address] [place] [address] ACUTE ILLNESS 07/27/2016 Patient Education: Patient Medication Summary Completed 07/27/2016 Visit Plan: Update lab and check ABIs to start with Will likely need cardiology evaluation to rule out PVD Clindamycin for 10 days Daily yogurt or probiotic Will return for removal of left arm lesions 07/20/2016 Appointment: María Elena Appiah WPtel: [address] [place] [address] ACUTE ILLNESS 07/20/2016 Patient Education: Patient Medication Summary Completed 07/20/2016 Patient Education: Patient Medication Summary Completed 07/20/2016 Care Plan: MAMMOGRAM BOTH BREASTS LOINC : 17583-6 Pending 07/20/2016 Care Plan: US EXAM CHEST LOINC : 46611-7 Pending 07/20/2016 Visit Plan: Wound culture collected from left great toe Appearance is somewhat staph like Rx as above Wound cleanser and skin care reviewed May need to add oral antibiotic if sores do not heal or continue to reoccur 07/06/2016 Appointment: Loan Sánchez [address] [place], [place] [id number] ACUTE ILLNESS 07/06/2016 Patient Education: Patient Medication Summary Completed 07/06/2016 Appointment: María Elena Appiah WPtel: [address] [place] [address] [place] INJECTION 05/25/2016 Patient Education: Patient Medication Summary Completed 05/25/2016 Visit Plan: Saline nasal flushes prn. Ty lenol/Motrin prn headache. Notify if persists/symptoms worsening. Dexamethasone and Rocephin given 04/26/2016 Appointment: María Elena Appiah WPtel: [address] [place] [address] ACUTE ILLNESS 04/26/2016 Patient Education: Patient Medication Summary Completed 04/26/2016 Visit Plan: Check CBC, CMP, TSH, FreeT4, HbA1C, estradiol, lipids in AM 03/02/2016 Appointment: María Elena Appiah WPtel: [address] [place] [address] 03/01 lm~sl ACUTE ILLNESS 03/02/2016 Patient Education: Patient Medication Summary Completed 03/02/2016 Visit Plan: Exam is nearly normal Needs to be taking daily antihistamine Would prefer to use oral steroids instead of shot but patient insist that oral steroids cause horrible headaches for her Will given kenalog IM instead 02/09/2016 Appointment: Loan Sánchez [address] [place] [address] ACUTE ILLNESS 02/09/2016 Patient Education: Patient Medication Summary Completed 02/09/2016 Visit Plan: Culture urine Macrobid DC xa nax Trial of Ativan 1mg q HS 01/24/2016 Appointment: María Elena Appiah WPtel: [address] [place] [address] ACUTE ILLNESS 01/24/2016 Patient Education: Patient Medication Summary Completed 01/24/2016 Visit Plan: No steroid or rocephin injec tion warranted Can have oral prednisone Continue current home regimen Needs to follow up with Dr Sanchez if problems persist 12/23/2015 Appointment: Loan Sánchez [address] [place] [address] ACUTE ILLNESS 12/23/2015 Patient Education: Patient Medication Summary Completed 12/23/2015 Visit Plan: Saline nasal flushes prn. Ty lenol/Motrin prn headache. Notify if persists/symptoms worsening. Kenalog 40mg IM today 12/08/2015 Appointment: María Elena Appiah WPtel: [address] [place] [address] 12/06 confirmed~sl ACUTE ILLNESS 12/08/2015 Patient Education: Patient Medication Summary Completed 12/08/2015 Appointment: María Elena Appiah WPtel: [address] [place] [address] ACUTE ILLNESS 11/18/2015 Patient Education: Patient Medication Summary Completed 10/11/2015 Appointment: María Elena Appiah WPtel: [address] [place], [place] [phone] [place] INJECTION 10/07/2015 Patient Education: Patient Medication Summary Completed 10/07/2015 Visit Plan: Check renal arterial doppler s and ECHO Change amlodopine to lotrel 5/20mg q HS Will need stress test as well Check CMP, uric acid, ESR 10/06/2015 Appointment: María Elena Appiah WPtel: [address] [place] [address] ACUTE ILLNESS 10/06/2015 Patient Education: Patient Medication Summary Completed 10/06/2015 Patient Education: [facility] - [employer]aving [employer] - Amlodipine Besylate - 18-64 - Dynamic Portal ID Completed 10/06/2015 Appointment: María Elena Appiah WPtel: [address] [place] [address] FOLLOW UP 09/22/2015 Visit Plan: Cephalexin 500 mg PO bid Mery ly topical Mupirocin to lesions on left lateral neck and face Follow-up in one week. Sooner if symptoms worsen 09/14/2015 Appointment: June Flores WPtel: [address] [place] [address] ACUTE ILLNESS 09/14/2015 Patient Education: Patient Medication Summary Completed 09/14/2015 Visit Plan: Change bystolic to bedtime d osing and amlodopine to morning dosing Cryotherapy as above to AKs 09/07/2015 Appointment: María Elena Appiah WPtel: [address] [place], [place] [phone] 09/06 appointment made and confirmed ~ FOLLOW UP 09/07/2015 Patient Education: Patient Medication Summary Completed 09/07/2015 Visit Plan: Increase bystolic back to 20 mg daily but will split and take 10mg in AM and 10mg in PM Stress Reducers 08/18/2015 Appointment: María Elena Appiah WPtel: [address] [place] [address] 08/17/15 appt confirmed cn ACUTE ILLNESS 08/18 Patient Education: Patient Medication Summary Completed 08/18/2015 Appointment: María Elena Appiah WPtel: [address] [place] [address] BP CHECK 07/07/2015 Patient Education: Patient Medication Summary Completed 07/07/2015 Appointment: María Elena Appiah WPtel: [address] [place] [address] BP CHECK 06/24/2015 Patient Education: Patient Medication Summary Completed 06/24/2015 Appointment: María Elena Appiah WPtel: [address] [place] [address] BP CHECK 06/21/2015 Patient Education: Patient Medication Summary Completed 06/21/2015 Visit Plan: Lab discussed Continue curre nt meds and lifestyle modification Recheck lab in 6mos 06/16/2015 Appointment: María Elena Appiah WPtel: [address] [place] [address] 06/15 confirmed FOLLOW UP 06/16/2015 Patient Education: Patient Medication Summary Completed 06/16/2015 Patient Education: Patient Medication Summary Completed 06/15/2015 Visit Plan: Increase cymbalta to 60mg q HS Keep clonidine at current dose Recheck 2weeks Change xanax to klonopin 06/02/2015 Appointment: María Elena Appiah WPtel: [address] [place] [address] 06/02 lm FOLLOW UP 06/02/2015 Patient Education: Patient Medication Summary Completed 06/02/2015 Appointment: María Elena Appiah WPtel: [address] [place] [address] ACUTE ILLNESS 05/24/2015 Visit Plan: Increase clonidine to 0.2mg q HS Add cymbalta 30mg q HS Recheck 2weeks Stress Reducers Check fasting lab Discussed sleep study 05/20/2015 Appointment: María Elena Appiahtel: [address] [place] [address] ACUTE ILLNESS 05/20/2015 Patient Education: Patient Medication Summary Completed 05/20/2015 Patient Education: [facility] - [employer] - Cymbalta - 18-64 - Dynamic Portal ID Completed 05/20/2015 Appointment: María Elena Appiah WPtel: [address] [place] [address] BP CHECK 05/19/2015 Patient Education: Patient Medication Summary Completed 05/19/2015 Visit Plan: Topical Bactroban alternatin g with topical betamethasone Recheck 2weeks 05/10/2015 Appointment: María Elena Appiah WPtel: [address] [place] [address] 05/07 vm cn...05/07 appt confirmed OFFICE SURGER Y 05/10/2015 Patient Education: Patient Medication Summary Completed 05/10/2015 [facility] [address] Referral Initiated 05/04/2015 Visit Plan: Saline nasal flushes prn. Ty lenol/Motrin prn headache. Notify if persists/symptoms worsening. Depomedrol 40mg IM today 03/16/2015 Appointment: María Elena Appiah WPtel: [address] [place] [address] ACUTE ILLNESS 03/16/2015 Patient Education: Patient Medication Summary Completed 03/16/2015 Appointment: María Elena Appiahtel: [address] [place] [address] ER Follow UP 03/09/2015 Visit Plan: Cryotherapy to lesions as ab ove 10/27/2014 Appointment: María Elena Appiah WPtel: [address] [place], [place] [id number] OFFICE SURGERY 10/27/2014 Patient Education: Patient Medication Summary Completed 10/27/2014 Appointment: June Flores WPtel: [address] [place] [address] ACUTE ILLNESS 09/11/2014 Patient Education: Patient Medication Summary Completed 09/11/2014 Visit Plan: Lab discussed Lipitor 10mg d aily Coenzyme Q-10 400mg daily Vitamin D3 5000u daily Recheck lipids with LFTs in 3mos then fwup 08/31/2014 Appointment: María Elena Appiah WPtel: [address] [place] [address] 08/28 voicetxil FOLLOW UP 08/31/2014 Patient Education: Patient Medication Summary Completed 08/31/2014 Appointment: María Elena Appiah WPtel: [address] [place] [address] [place] LAB 08/27/2014 Appointment: María Elena Appiah WPtel: [address] [place] [address] [place] LAB 08/27/2014 Patient Education: Patient Medication Summary Completed 08/27/2014 Appointment: María Elena Appiah WPtel: [address] [place] [address] ACUTE ILLNESS 07/23/2014 Appointment: María Elena Appiah WPtel: [address] [place] [address] ACUTE ILLNESS 07/21/2014 Patient Education: Patient Medication Summary Completed 07/21/2014 Visit Plan: Kenalog 40mg IM today Contin ue narendra and singulair Add Flonase 07/15/2014 Appointment: María Elena Appiah WPtel: [address] [place] [address] ACUTE ILLNESS 07/15/2014 Appointment: María Elena Appiah WPtel: [address] [place], [place] [phone] ACUTE ILLNESS 07/15/2014 Patient Education: Patient Medication Summary Completed 07/15/2014 Visit Plan: Will do metolazone 2.5mg prn with 6 potassium and see if causes as severe cramping Trial of of seroquel XR 50mg q PM with evening meal and let us know how works 05/18/2014 Appointment: María Elena Appiah WPtel: [address] [place], [place] [phone] 05/15 left message FOLLOW UP 05/18/2014 Patient Education: Patient Medication Summary Completed 05/18/2014 Appointment: María Elena Appiah WPtel: [address] [place], [place] [phone] LAB 05/14/2014 Patient Education: Patient Medication Summary Completed 05/14/2014 Appointment: María Elena Appiah WPtel: [address] [place], [place] [phone] [place] INJECTION 04/22/2014 Visit Plan: Tisha and Miranda today a nd finish abx given from urgent care 04/21/2014 Appointment: María Elena Appiah WPtel: [address] [place], [place] [phone] [place] INJECTION 04/21/2014 Patient Education: Patient Medication Summary Completed 04/21/2014 Appointment: June Flores WPtel: [address] [place], [place] [phone] ACUTE ILLNESS 03/04/2014 Patient Education: Patient Medication Summary Completed 03/04/2014 Appointment: María Elena Appiah WPtel: [address] [place], [place] [phone] [place] INJECTION 02/27/2014 Patient Education: Patient Medication Summary Completed 02/27/2014 Visit Plan: Cryotherapy as above to all lesions Patient wants to try no meds for insomnia for a while and see how goes 01/13/2014 Appointment: María Elena Appiah WPtel: [address] [place], [place] [phone] OFFICE SURGERY 01/13/2014 Patient Education: Patient Medication Summary Completed 01/13/2014 Visit Plan: Stop Melatonin Stop Soma Tri al of trazadone 75mg q HS See ENT for possible tubes as has had chronic ETD and serous otitis media with numerous steroids 12/24/2013 Appointment: María Elena Appiah WPtel: [address] [place] [address] ACUTE ILLNESS 12/24/2013 Patient Education: Patient Medication Summary Completed 12/24/2013 Visit Plan: Saline nasal flushes prn. Ty lenol/Motrin prn headache. Notify if persists/symptoms worsening. 11/12/2013 Appointment: María Elena Appiah WPtel: [address] [place] [address] ACUTE ILLNESS 11/12/2013 Patient Education: Patient Medication Summary Completed 11/12/2013 Appointment: María Elena Appiah WPtel: [address] [place] [address] ACUTE ILLNESS 10/21/2013 Patient Education: Patient Medication Summary Completed 10/21/2013 Visit Plan: Sleep hygiene and sleep rout ine Melatonin 10mg q HS Support stockings and observe 09/22/2013 Appointment: María Elena Appiah WPtel: [address] [place] [address] ACUTE ILLNESS 09/22/2013 Patient Education: Patient Medication Summary Completed 09/22/2013 Appointment: June Flores WPtel: [address] [place] [address] ACUTE ILLNESS 08/27/2013 Patient Education: Patient Medication Summary Completed 08/27/2013 Visit Plan: Proceed with CT scan of head /neck Proceed with occipital nerve injections Butrans 20mcg patch weekly until can get into see Dr. Mcdonough for injections 08/04/2013 Appointment: María Elena Appiah WPtel: [address] [place] [address] FOLLOW UP 08/04/2013 Patient Education: Patient Medication Summary Completed 08/04/2013 Visit Plan: OMT done Daily neck stretche s, moist heat Increase Celebrex to 200mg BID Add flexeril 07/23/2013 Appointment: María Elena Appiah WPtel: [address] [place] [address] 07/22 voicemail FOLLOW UP 07/23/2013 Patient Education: Patient Medication Summary Completed 07/23/2013 Appointment: María Elena Appiah WPtel: [address] [place] [address] ACUTE ILLNESS 06/23/2013 Patient Education: Patient Medication Summary Completed 06/23/2013 Appointment: María Elena Appiah WPtel: [address] [place] [address] ACUTE ILLNESS 05/26/2013 Patient Education: Patient Medication Summary Completed 05/26/2013 Visit Plan: Decrease clonidine to 0.1mg TID If BP remains stable consider decreasing amlodopine Prednisone for 5 days BP check in 1mo 04/16/2013 Appointment: María Elena Appiah WPtel: [address] [place] [address] 04/14 pt called and confirmed appt FOLLOW UP 04/16/2013 Patient Education: Patient Medication Summary Completed 04/16/2013 Appointment: María Elena Appiah WPtel: [address] [place] [address] ACUTE ILLNESS 03/05/2013 Patient Education: Patient Medication Summary Completed 03/05/2013 Visit Plan: Pt has MARIA ELENA on with Dr. Sharonda Arita Butrans patch Refill Hydrocodone early tomorrow 12/23/2012 Appointment: María Elena Appiah WPtel: [address] [place] [address] FOLLOW UP 12/23/2012 Patient Education: Patient Medication Summary Completed 12/23/2012 Appointment: Lashawn Eckert WPtel: [address] [place] [address] ACUTE ILLNESS 12/16/2012 Patient Education: Patient Medication Summary Completed 12/16/2012 Visit Plan: Proceed with updated MRI of LS spine Continue gabapentin and add soma and diclofenac Will likely need to go for another epidural 12/09/2012 Appointment: María Elena Appiah WPtel: [address] [place] [address] ACUTE ILLNESS 12/09/2012 Patient Education: Patient Medication Summary Completed 12/09/2012 Visit Plan: Injection as above Finish me drol dose pack Chiropracter this afternoon 12/04/2012 Appointment: María Elena Appiah WPtel: [address] [place] [address] ACUTE ILLNESS 12/04/2012 Patient Education: Patient Medication Summary Completed 12/04/2012 Appointment: Mary Tillman WPtel: [address] [place] [address] FOLLOW UP 11/22/2012 Patient Education: Patient Medication Summary Completed 11/22/2012 Appointment: María Elena Appiah WPtel: [address] [place] [address] ACUTE ILLNESS 11/21/2012 Patient Education: Patient Medication Summary Completed 11/21/2012 Appointment: María Elena Appiah WPtel: [address] [place] [address] BP CHECK 11/07/2012 Patient Education: Patient Medication Summary Completed 11/07/2012 Visit Plan: reports extra clonidine and extra amlodipine and extra alprazalam. extra Ketolorac and promethazine last night. Bystolic 10 mg QAM and will continue all other blood pressure meds. Pt. encouraged to rest and hydrate. Discussed stroke and IN symptoms. Pt. instructed to seek ER eval if symptoms worsen or headache persists. Pt. agrees to ER eval/EMS transport if symptoms worsen. BP re-check. 10/29/2012 Appointment: Lashawn Eckert WPtel: [address] [place] [address] ACUTE ILLNESS 10/29/2012 Patient Education: Patient Medication Summary Completed 10/29/2012 Appointment: María Elena Appiah WPtel: [address] [place], [place] [phone] ACUTE ILLNESS 10/14/2012 Patient Education: Patient Medication Summary Completed 10/14/2012 Appointment: María Elena Appiah WPtel: [address] [place] [phone] UA 09/27/2012 Patient Education: Patient Medication Summary Completed 09/27/2012 Appointment: María Elena Appiah WPtel: [address] [place], [place] [phone] ACUTE ILLNESS 09/25/2012 Patient Education: Patient Medication Summary Completed 09/25/2012 Appointment: María Elena Appiah WPtel: [address] [place], [place] [phone] BP CHECK 09/24/2012 Appointment: María Elena Appiah WPtel: [address] [place], [place] [phone] ACUTE ILLNESS 08/29/2012 Patient Education: Patient Medication Summary Completed 08/29/2012 Visit Plan: Cryotherapy as above See Karlos m for right ear lesion--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 ACUTE ILLNESS 05/06/2012 Patient Education: Patient Medication Summary Completed 05/06/2012 Visit Plan: Pt wants to hold on any furt her sleep medications 04/03/2012 Appointment: María Elena Appiah WPtel: [address] [place] [address] [place] FOLLOW UP 04/03/2012 Patient Education: Patient Medication Summary Completed 04/03/2012 Appointment: María Elena Appiah WPtel: [address] [place] [address] [place] FOLLOW UP 03/19/2012 Patient Education: Patient Medication Summary Completed 03/19/2012 Appointment: María Elena Appiah WPtel: [address] [place] [address] BP CHECK 02/22/2012 Patient Education: Patient Medication Summary Completed 02/22/2012 Appointment: María Elena Appiah WPtel: [address] [place] [address] BP CHECK 02/21/2012 Patient Education: Patient Medication Summary Completed 02/21/2012 Visit Plan: Doxycycline and bactroban fo r foot Supportive care on ankles and knees Add norvasc for BP 02/20/2012 Appointment: María Elena Appiah WPtel: [address] [place] [address] ER Follow UP 02/20/2012 Patient Education: Patient Medication Summary Completed 02/20/2012 Appointment: María Elena Appiah WPtel: [address] [place] [address] ACUTE ILLNESS 01/30/2012 Patient Education: Patient Medication Summary Completed 01/30/2012 Appointment: María Elena Appiah WPtel: [address] [place] [address] ACUTE ILLNESS 01/24/2012 Patient Education: Patient Medication Summary Completed 01/24/2012 Visit Plan: Daily back stretches, moist heat, Biofreeze prn OMT done 01/10/2012 Appointment: María Elena Appiah WPtel: [address] [place] [address] ACUTE ILLNESS 01/10/2012 Patient Education: Patient Medication Summary Completed 01/10/2012 Appointment: María Elena Appiah WPtel: [address] [place] [address] FOLLOW UP 12/11/2011 Patient Education: Patient Medication Summary Completed 12/11/2011 Appointment: María Elena Appiah WPtel: [address] [place] [address] ACUTE ILLNESS 11/09/2011 Patient Education: Patient Medication Summary Completed 11/09/2011 Appointment: María Elena Appiah WPtel: [address] [place] [address] ACUTE ILLNESS 09/13/2011 Patient Education: Patient Medication Summary Completed 09/13/2011 Visit Plan: Check CBC, TSH, Free T4, CMP , ESR, Vit D, B12 now Start Prednisone today 08/31/2011 Appointment: María Elena Appiahtel: [address] [place] [address] ACUTE ILLNESS 08/31/2011 Patient Education: Patient Medication Summary Completed 08/31/2011 Appointment: María Elena Appiahtel: [address] [place] [address] [place] INJECTION 07/20/2011 Patient Education: Patient Medication Summary Completed 07/20/2011 Visit Plan: Continue current meds Monite r BP Cont stretches from PT 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 07/06/2011 Appointment: María Elena Appiahtel: [address] [place] [address] FOLLOW UP 07/06/2011 Patient Education: Patient Medication Summary Completed 07/06/2011 Appointment: María Elena Appiah WPtel: [address] [place] [address] BP CHECK 06/06/2011 Patient Education: Patient Medication Summary Completed 06/06/2011 Visit Plan: Add Bystolic at 2.5mg QAM Ad d Robaxin 750mg 2 po q HS BP check in 2wks 05/22/2011 Appointment: María Elena Appiah WPtel: [address] [place], [place] [phone] [place] FOLLOW UP 05/22/2011 Patient Education: Patient Medication Summary Completed 05/22/2011 Appointment: María Elena Appiah WPtel: [address] [place], [place] [phone] ER Follow UP 05/09/2011 Patient Education: Patient Medication Summary Completed 05/09/2011 Appointment: María Elena Appiah WPtel: [address] [place], [place] [phone] FOLLOW UP 02/22/2011 Visit Plan: Rx written for Hydrocodone 1 0/325mg #240 See Ortho 02/14/2011 Appointment: María Elena Appiah WPtel: [address] [place], [place] [phone] OMT 02/14/2011 Patient Education: Patient Medication Summary [...] lab work. 02/03/2011 Appointment: Lashawn Eckert WPtel: [address] [place], [place] [phone] ACUTE ILLNESS 02/03/2011 Patient Education: Patient Medication Summary Completed 02/03/2011 Visit Plan: OMT done Cont daily stretche s 01/31/2011 Appointment: María Elena Appiah WPtel: [address] [place], [place] [phone] ACUTE ILLNESS 01/31/2011 Patient Education: Patient Medication Summary Completed 01/31/2011 Visit Plan: Continue pain meds OMT done Proceed with PT No work this summer01/25/2011 Appointment: María Elena Appiahtel: [address] [place] [address] ACUTE ILLNESS 01/25/2011 Patient Education: Patient Medication Summary Completed 01/25/2011 Visit Plan: Start PT Long discussion abo ut getting pain meds from only us and can only have max of 4grams of tylenol per day Change to Hydrocodone 10/325mg 1- 2 po TID prn pain--#180 called to [facility] 01/18/2011 Appointment: María Elena Appiahtel: [address] [place] [address] FOLLOW UP 01/18/2011 Patient Education: Patient Medication Summary Completed 01/18/2011 Visit Plan: Daily back stretches, moist heat, Biofreeze prn 11/29/2010 Appointment: María Elena Appiahtel: [address] [place] [address] ER Follow UP 11/29/2010 Patient Education: Patient Medication Summary Completed 11/29/2010 Visit Plan: Saline nasal flushes prn. Ty lenol/Motrin prn headache. Notify if persists/symptoms worsening. Finish augmentin Add Medrol Dose Pack 10/10/2010 Appointment: María Elena Appiahtel: [address] [place], [place] [id number] ACUTE ILLNESS 10/10/2010 Patient Education: Patient Medication Summary Completed 10/10/2010 Visit Plan: Cryotherapy x3 to multiple l esions on both forearms 07/19/2010 Appointment: María Elena Appiahtel: [address] [place], [place] [id number] OFFICE SURGERY 07/19/2010 Patient Education: Patient Medication Summary Completed 07/19/2010 Appointment: María Elena Appiahtel: [address] [place], [place] [id number] BP CHECK 07/06/2010 Patient Education: Patient Medication Summary Completed 07/06/2010 Appointment: María Elena Appiah WPtel: [address] [place] [address] BP CHECK 06/30/2010 Patient Education: Patient Medication Summary Completed 06/30/2010 Appointment: María Elena Appiah WPtel: [address] [place] [address] BP CHECK 06/20/2010 Patient Education: Patient Medication Summary Completed 06/20/2010 Visit Plan: Change Diovan to Exforge 160 /5mg QD OMT done to thoracics BP check in 2wks 06/07/2010 Appointment: María Elena Appiah WPtel: [address] [place] [address] FOLLOW UP 06/07/2010 Patient Education: Patient Medication Summary Completed 06/07/2010 Appointment: María Elena Appiah WPtel: [address] [place] [address] BP CHECK 06/03/2010 Patient Education: Patient Medication Summary Completed 06/03/2010 Appointment: María Elena Appiah WPtel: [address] [place] [address] BP CHECK 06/01/2010 Patient Education: Patient Medication Summary Completed 06/01/2010 Visit Plan: Irritated skin tags to left neck x2 excised at base with scissors and base cauterized 05/30/2010 Appointment: María Elena Appiah WPtel: [address] [place] [address] OFFICE SURGERY 05/30/2010 Patient Education: Patient Medication Summary Completed 05/30/2010 Visit Plan: Saline nasal flushes prn. Ty lenol/Motrin prn headache. Notify if persists/symptoms worsening. Restart Nasonex Has allergy testing set for May 25 04/27/2010 Appointment: Maraí Elena Appiah WPtel: [address] [place] [address] [place] ACUTE ILLNESS 04/27/2010 Patient Education: Patient Medication Summary Completed 04/27/2010 Visit Plan: Saline nasal flushes prn. Ty lenol/Motrin prn headache. Notify if persists/symptoms worsening. Omnaris BID plus injections 04/05/2010 Appointment: María Elena Appiah WPtel: [address] [place] [address] ACUTE ILLNESS 04/05/2010 Patient Education: Patient Medication Summary Completed 04/05/2010 Visit Plan: Saline nasal flushes prn. Ty lenol/Motrin prn headache. Notify if persists/symptoms worsening. 03/09/2010 Appointment: María Elena Appiah WPtel: [address] [place] [address] ACUTE ILLNESS 03/09/2010 Patient Education: Patient Medication Summary Completed 03/09/2010 Visit Plan: Cont Clonidine as is Cont Pr emarin Fwup with surgery as scheduled 03/03/2010 Appointment: María Elena Appiah WPtel: [address] [place] [address] FOLLOW UP 03/03/2010 Patient Education: Patient Medication Summary Completed 03/03/2010 Visit Plan: Check Pelvic US now Dukee tacho Sal C vs Hysterectomy 01/17/2010 Appointment: María Elena Appiahtel: [address] [place] [address] ACUTE ILLNESS 01/17/2010 Patient Education: Patient Medication Summary Completed 01/17/2010 Visit Plan: Check fasting lab and schedu le Mammogram 2gm Na Diet Trial of Ambien 10mg qhs Fwup pending lab results 12/27/2009 Appointment: María Elena Appiah WPtel: [address] [place] [address] [place] ESTABLISHED PATIENT 12/27/2009 Patient Education: Patient Medication Summary Completed 12/27/2009 Referral: Canelo Overton WPtel: [address] [place] [address] [place] Referral Initiated Referral: Philipp Flores WPtel: [address] [id number] [place] Referral Appointment Requested Instructions Comment . [...] to rest and hydrate. Discussed stroke and IN symptoms. Pt. instructed to seek ER eval [...]
--- OUTSIDE RECORDS SUMMARY | 2020-03-13 04:44 | XMS REPORT | CCD ---
Author Author Gale Appiah D.O. 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 Role Phone María Elena Appiah D.O., PP Unavailable CCM Unavailable Summary Purpose Interface Exchange Insurance Providers Payer name Policy type / Coverage type Covered democrat ID Effective Begin Date Effective End Date [facility] Commercial Insurance [id number] Unknown Family History Family History data not found Social History Social History Element Codes Description Effective Dates Tobacco history SNOMED CT: [id number] Never smoker 05/22/2011 Allergies, Adverse Reactions, Alerts [...] Fill Instructions Januvia 100 mg tablet RxNorm: 659593 TAKE ONE TABLET BY MOUTH DAILY 01/22/2020 No Stop Date Active gabapentin 300 mg capsule RxNorm: 644837 TAKE ONE CAPSU LE BY MOUTH EVERY NIGHT AT BEDTIME 01/22/2020 No Stop Date Active allopurinol 300 mg tablet RxNorm: 087238 TAKE ONE TABLET BY LOPEZ TH DAILY 01/22/2020 No Stop Date Active Klor-Con 8 mEq tablet,extended release RxNorm: 817540 T FARRUKH ONE TABLET BY MOUTH TWICE A DAY 01/22/2020 No Stop Date Active doxepin 25 mg capsule RxNorm: 9449906 TAKE ONE CAPSULE B Y MOUTH EVERY NIGHT AT BEDTIME NEEDED FOR SLEEP 01/22/2020 No Stop Date Active glimepiride 4 mg tablet RxNorm: 411742 1 Tablet(s) Oral two times a day replaces 2mg dose 01/13/2020 04/12/2020 Active lisinopril 40 mg tablet RxNorm: 861205 1 Tablet(s) Oral QD repl aces 20mg dose 01/13/2020 04/12/2020 Active hydrocodone 10 mg-acetaminophen 325 mg tablet RxNorm: 081418 1-2 Tablet(s) Oral three times a day as needed for pain 01/12/2020 No Stop Date Active cyclobenzaprine 10 mg tablet RxNorm: 681692 TAKE ONE TA BLET BY MOUTH THREE TIMES A DAY NEEDED FOR MUSCLE SPASMS 01/05/2020 No Stop Date Active triamterene 75 mg-hydrochlorothiazide 50 mg tablet RxNorm: 3 79107 TAKE ONE TABLET BY MOUTH DAILY 12/29/2019 No Stop Date Active Klor-Con 8 mEq tablet,extended release RxNorm: 554618 T FARRUKH ONE TABLET BY MOUTH TWICE A DAY 12/19/2019 01/21/2020 Inactive allopurinol 300 mg tablet RxNorm: 440261 TAKE ONE TABLET BY LOPEZ TH DAILY 12/19/2019 01/21/2020 Inactive glimepiride 2 mg tablet RxNorm: 026474 TAKE ONE TABLET BY MOUTH TWICE A DAY 12/19/2019 01/12/2020 Inactive hydrocodone 10 mg-acetaminophen 325 mg tablet RxNorm: 634675 1-2 Tablet(s) Oral three times a day as needed for pain 12/10/2019 01/11/2020 Inactive Januvia 100 mg tablet RxNorm: 742840 1 Tablet(s) Oral QD 11/20/2019 0 11/20/2019 Inactive glimepiride 2 mg tablet RxNorm: 135442 1 Tablet(s) Oral two sawyer es a day 11/20/2019 12/18/2019 Inactive cyclobenzaprine 10 mg tablet RxNorm: 314248 TAKE ONE TA BLET BY MOUTH THREE TIMES A DAY NEEDED FOR MUSCLE SPASMS 11/17/2019 01/04/2020 Inactive doxepin 25 mg capsule RxNorm: 9604712 TAKE ONE CAPSULE B Y MOUTH EVERY NIGHT AT BEDTIME NEEDED FOR SLEEP 11/16/2019 01/21/2020 Inactive Klor-Con 8 mEq tablet,extended release RxNorm: 703125 T FARRUKH ONE TABLET BY MOUTH TWICE A DAY 11/16/2019 12/18/2019 Inactive hydrocodone 10 mg-acetaminophen 325 mg tablet RxNorm: 854231 1-2 Tablet(s) Oral three times a day as needed for pain 11/10/2019 12/09/2019 Inactive cyclobenzaprine 10 mg tablet RxNorm: 532101 TAKE ONE TA BLET BY MOUTH THREE TIMES A DAY NEEDED FOR MUSCLE SPASMS 10/23/2019 11/16/2019 Inactive duloxetine 60 mg capsule,delayed release RxNorm: 793140 1 Capsu le(s) Oral QD 10/17/2019 04/13/2020 Active celecoxib 200 mg capsule RxNorm: 825153 1 Capsule(s) Or al two times a day as needed for pain 10/17/2019 01/14/2020 Inactive Singulair 10 mg tablet RxNorm: 180102 1 Tablet(s) Oral QD 10/17/2019 04/14/2020 Active metoprolol tartrate 100 mg tablet RxNorm: 137633 1 Tabl et(s) Oral two times a day 10/17/2019 04/13/2020 Active clonidine HCl 0.1 mg tablet RxNorm: 709056 1 Tablet(s) Oral fou r times a day 10/17/2019 04/13/2020 Active Lipitor 10 mg tablet RxNorm: 391200 1 Tablet(s) Oral QD 10/17/2019 Inactive Steglatro 15 mg tablet RxNorm: 1334975 1 Tablet(s) Oral QD 10/17/19 No Stop Date Active lisinopril 20 mg tablet RxNorm: 233199 1 Tablet(s) Oral QD 10/17/19 20 01/12/2020 Inactive gabapentin 300 mg capsule RxNorm: 082776 1 Capsule(s) O ral every night at bedtime 10/17/2019 01/15/2020 Inactive Klor-Con 8 mEq tablet,extended release RxNorm: 393381 1 Tablet(s) Oral two times a day 10/17/2019 11/15/2019 Inactive Januvia 100 mg tablet RxNorm: 515336 1 Tablet(s) Oral QD 10/17/2019 0 01/12/2020 Inactive Glyxambi 25 mg-5 mg tablet RxNorm: 6048124 1 Tablet(s) Oral QD 01/202010/16/2019 Inactive Patient will bring in copay discount card as well Glyxambi 25 mg-5 mg tablet RxNorm: 1864921 1 Tablet(s) Oral QD 01/202010/14/2019 Inactive Patient will bring in copay discount card as well Keflex 500 mg capsule RxNorm: 516892 1 Capsule(s) Oral two time s a day 10/07/2019 10/14/2019 Inactive Premarin 1.25 mg tablet RxNorm: 320188 1 Tablet(s) Oral QD 09/30/19 20 06/25/2020 Active hydrocodone 10 mg-acetaminophen 325 mg tablet RxNorm: 975810 1-2 Tablet(s) Oral three times a day as needed for pain 09/30/2019 09/30/2019 Inactive baclofen 10 mg tablet RxNorm: 671609 TAKE ONE TABLET BY MOUTH THREE TIMES A DAY NEEDED 09/19/2019 No Stop Date Active gabapentin 300 mg capsule RxNorm: 859856 TAKE ONE CAPSU LE BY MOUTH EVERY NIGHT AT BEDTIME 09/19/2019 10/16/2019 Inactive Klor-Con 8 mEq tablet,extended release RxNorm: 788372 T FARRUKH ONE TABLET BY MOUTH TWICE A DAY 1 Tablet(s) Oral two times a day 09/19/2019 10/16/2019 Breeding ctive hydrocodone 10 mg-acetaminophen 325 mg tablet RxNorm: 450276 1-2 Tablet(s) Oral three times a day as needed for pain 09/19/2019 09/29/2019 Inactive duloxetine 60 mg capsule,delayed release RxNorm: 892214 TAKE ONE CAPSULE BY MOUTH DAILY 09/11/2019 10/16/2019 Inactive Lipitor 10 mg tablet RxNorm: 982616 TAKE ONE TABLET BY MOUTH AT BEDTIME 09/11/2019 10/16/2019 Inactive lisinopril 20 mg tablet RxNorm: 323794 TAKE ONE TABLET BY MOUTH DAILY .... THIS REPLACE 10MG TABLETS 09/11/2019 10/16/2019 Inactive triamterene 75 mg-hydrochlorothiazide 50 mg tablet RxNorm: 3 30079 TAKE ONE TABLET BY MOUTH DAILY 09/11/2019 12/28/2019 Inactive allopurinol 300 mg tablet RxNorm: 372616 TAKE ONE TABLET BY LOPEZ TH DAILY 09/11/2019 12/18/2019 Inactive celecoxib 200 mg capsule RxNorm: 003984 TAKE ONE CAPSUL E BY MOUTH TWICE A DAY NEEDED FOR PAIN 09/11/2019 10/16/2019 Inactive clonidine HCl 0.1 mg tablet RxNorm: 647652 TAKE ONE TAB LET BY MOUTH FOUR TIMES A DAY 09/11/2019 10/16/2019 Inactive doxepin 25 mg capsule RxNorm: 3465795 1 Capsule(s) Oral every night at bedtime as needed for sleep 08/21/2019 11/15/2019 Inactive hydrocodone 10 mg-acetaminophen 325 mg tablet RxNorm: 718827 1-2 Tablet(s) PO TID 08/12/2019 09/29/2019 Inactive as needed for pa in - Previous quantity #240, will start dosing for #180 in April 2011 per Doctor Td. Medrol (Dustin) 4 mg tablets in a dose pack RxNorm: 981315 Tablet(s) Oral As Directed 07/21/2019 09/29/2019 Inactive Premarin 1.25 mg tablet RxNorm: 878961 1 Tablet(s) Oral QD 07/02/2009/29/2019 Inactive hydrocodone 10 mg-acetaminophen 325 mg tablet RxNorm: 645992 1-2 Tablet(s) PO TID 07/01/2019 08/11/2019 Inactive as needed for pa in - Previous quantity #240, will start dosing for #180 in April 2011 per Doctor Appiah. gabapentin 300 mg capsule RxNorm: 014787 1 Capsule(s) PO QHS 201809/18/2019 Inactive celecoxib 200 mg capsule RxNorm: 140052 1 Capsule(s) Or al two times a day as needed for pain 06/27/2019 06/27/2019 Inactive doxepin 25 mg capsule RxNorm: 1275420 TAKE ONE CAPSULE B Y MOUTH EVERY NIGHT AT BEDTIME NEEDED FOR SLEEP 06/24/2019 08/20/2019 Inactive Singulair 10 mg tablet RxNorm: 442424 TAKE ONE TABLET BY MOUTH JOSÉ Y 06/24/2019 10/16/2019 Inactive furosemide 40 mg tablet RxNorm: 316542 TAKE ONE TABLET BY MOUTH EVERY MORNING NEEDED FOR EDEMA . TAKE WITH POTASSIUM 06/24/2019 01/12/2020 Inactive lisinopril 20 mg tablet RxNorm: 261295 TAKE ONE TABLET BY MOUTH DAILY .... THIS REPLACE 10MG TABLETS 06/24/2019 09/10/2019 Inactive nystatin-triamcinolone 100,000 unit/g-0.1 % topical cream Rx Norm: 1195454 1 Application Topical two times a day 06/12/2019 06/19/2019 Inactive apply BID for 1 week nystatin-triamcinolone 100,000 unit/g-0.1 % topical cream Rx Norm: 9617665 1 Application Topical two times a day 06/12/2019 06/11/2019 Inactive apply BID for 1 week hydrocodone 10 mg-acetaminophen 325 mg tablet RxNorm: 862579 1-2 Tablet(s) PO QID as needed for pain MUST LAST 30 DAYS 05/28/2019 06/26/2019 Inactiv e (Response to an electronic controlled substance refill request - RxReferenceNumber: [id number]) baclofen 20 mg tablet RxNorm: 206376 1 Tablet(s) PO TID as needed for muscle spasm 05/19/2019 05/27/2019 Inactive gabapentin 300 mg capsule RxNorm: 346896 1 Capsule(s) PO QHS 201805/27/2019 Inactive lisinopril 20 mg tablet RxNorm: 670329 1 Tablet(s) PO Q D TAKE ONE TABLET BY MOUTH DAILY, REPLACES 10 MG DOSE 05/19/2019 06/23/2019 Inactive doxepin 25 mg capsule RxNorm: 8787494 TAKE ONE CAPSULE B Y MOUTH EVERY NIGHT AT BEDTIME NEEDED FOR SLEEP 05/16/2019 06/14/2019 Inactive lisinopril 20 mg tablet RxNorm: 994966 TAKE ONE TABLET BY MOUTH DAILY, REPLACES 10 MG DOSE 05/16/2019 05/18/2019 Inactive Singulair 10 mg tablet RxNorm: 824124 TAKE ONE TABLET BY MOUTH JOSÉ Y 05/16/2019 06/14/2019 Inactive gabapentin 300 mg capsule RxNorm: 582231 1 Capsule(s) PO QHS 201805/04/2019 Inactive estropipate 1.5 mg tablet RxNorm: 643958 1 Tablet(s) PO QD 05/05/2005/27/2019 Inactive estropipate 1.5 mg tablet RxNorm: 052446 1 Tablet(s) PO QD 05/05/2005/04/2019 Inactive gabapentin 300 mg capsule RxNorm: 316458 1 Capsule(s) PO QHS 201805/18/2019 Inactive hydrocodone 10 mg-acetaminophen 325 mg tablet RxNorm: 410278 1-2 Tablet(s) PO QID as needed for pain MUST LAST 30 DAYS 04/25/2019 05/24/2019 Inactiv e (Response to an electronic controlled substance refill request - RxReferenceNumber: [id number]) cyclobenzaprine 10 mg tablet RxNorm: 805813 TAKE ONE TA BLET BY MOUTH THREE TIMES A DAY NEEDED FOR MUSCLE SPASMS 04/24/2019 05/18/2019 Inactive metoprolol tartrate 100 mg tablet RxNorm: 030754 TAKE O NE TABLET BY MOUTH TWICE A DAY 04/24/2019 10/16/2019 Inactive Lyrica 75 mg capsule RxNorm: 399726 1 Capsule(s) PO QHS 03/25/2019 Inactive duloxetine 60 mg capsule,delayed release RxNorm: 907043 TAKE ONE CAPSULE BY MOUTH DAILY 03/21/2019 05/19/2019 Inactive triamterene 75 mg-hydrochlorothiazide 50 mg tablet RxNorm: 3 67121 TAKE ONE TABLET BY MOUTH DAILY 03/21/2019 05/19/2019 Inactive Klor-Con 8 mEq tablet,extended release RxNorm: 690230 T FARRUKH ONE TABLET BY MOUTH TWICE A DAY 03/21/2019 09/18/2019 Inactive Lipitor 10 mg tablet RxNorm: 786011 TAKE ONE TABLET BY MOUTH AT BEDTIME 03/21/2019 09/10/2019 Inactive clonidine HCl 0.1 mg tablet RxNorm: 971029 TAKE ONE TAB LET BY MOUTH FOUR TIMES A DAY 03/21/2019 05/19/2019 Inactive allopurinol 300 mg tablet RxNorm: 736053 TAKE ONE TABLET BY LOPEZ TH DAILY 03/21/2019 05/19/2019 Inactive hydrocodone 10 mg-acetaminophen 325 mg tablet RxNorm: 809615 1-2 Tablet(s) PO QID as needed for pain MUST LAST 30 DAYS 02/28/2019 03/29/2019 Inactiv e (Response to an electronic controlled substance refill request - RxReferenceNumber: [id number]) furosemide 40 mg tablet RxNorm: 756520 TAKE ONE TABLET BY MOUTH EVERY MORNING NEEDED FOR EDEMA . TAKE WITH POTASSIUM 02/21/2019 03/22/2019 Inactive cyclobenzaprine 10 mg tablet RxNorm: 301353 TAKE ONE TA BLET BY MOUTH THREE TIMES A DAY NEEDED FOR MUSCLE SPASMS 02/21/2019 04/21/2019 Inactive lisinopril 20 mg tablet RxNorm: 333344 TAKE ONE TABLET BY MOUTH DAILY, REPLACES 10 MG DOSE 02/21/2019 05/15/2019 Inactive doxepin 25 mg capsule RxNorm: 1035538 TAKE ONE CAPSULE B Y MOUTH EVERY NIGHT AT BEDTIME NEEDED FOR SLEEP 02/21/2019 05/15/2019 Inactive nystatin 100,000 unit/gram topical cream RxNorm: 271736 APPLY TO AFFECTED AREA(S) TWO TIMES A DAY 02/21/2019 03/22/2019 Inactive estradiol 1 mg tablet RxNorm: 433578 2 Tablet(s) PO QD replaces premarin 01/22/2019 05/04/2019 Inactive lisinopril 20 mg tablet RxNorm: 571905 TAKE ONE TABLET BY MOUTH DAILY, REPLACES 10 MG DOSE 01/20/2019 02/18/2019 Inactive cyclobenzaprine 10 mg tablet RxNorm: 632026 TAKE ONE TA BLET BY MOUTH THREE TIMES A DAY NEEDED FOR MUSCLE SPASMS 01/20/2019 02/18/2019 Inactive metoprolol tartrate 100 mg tablet RxNorm: 349181 TAKE O NE TABLET BY MOUTH TWICE A DAY 01/20/2019 02/18/2019 Inactive cyclobenzaprine 10 mg tablet RxNorm: 980816 TAKE ONE TA BLET BY MOUTH THREE TIMES A DAY NEEDED FOR MUSCLE SPASMS 12/19/2018 01/17/2019 Inactive lisinopril 20 mg tablet RxNorm: 046580 TAKE ONE TABLET BY MOUTH DAILY, REPLACES 10 MG DOSE 12/19/2018 01/17/2019 Inactive duloxetine 60 mg capsule,delayed release RxNorm: 242376 TAKE ONE CAPSULE BY MOUTH DAILY 12/19/2018 01/17/2019 Inactive Lipitor 10 mg tablet RxNorm: 866556 TAKE ONE TABLET BY MOUTH AT BEDTIME 12/19/2018 01/17/2019 Inactive cyclobenzaprine 10 mg tablet RxNorm: 506457 1 Tablet(s) PO TID as needed for muscle spasm 11/19/2018 12/18/2018 Inactive Singulair 10 mg tablet RxNorm: 297214 1 Tablet(s) PO QD 11/19/2018 Inactive lisinopril 20 mg tablet RxNorm: 537036 TAKE ONE TABLET BY MOUTH DAILY, REPLACES 10 MG DOSE 11/15/2018 12/18/2018 Inactive hydrocodone 10 mg-acetaminophen 325 mg tablet RxNorm: 591298 1-2 Tablet(s) PO QID as needed for pain MUST LAST 30 DAYS 11/13/2018 12/12/2018 Inactiv e (Response to an electronic controlled substance refill request - RxReferenceNumber: [id number]) nystatin 100,000 unit/gram topical cream RxNorm: 026069 APPLY TO AFFECTED AREA(S) TWO TIMES A DAY 10/23/2018 11/06/2018 Inactive lisinopril 20 mg tablet RxNorm: 416210 1 Tablet(s) PO QD replac es 10mg dose 10/18/2018 11/14/2018 Inactive hydrocodone 10 mg-acetaminophen 325 mg tablet RxNorm: 732376 1-2 Tablet(s) QID as needed for pain MUST LAST 30 DAYS 10/08/2018 11/06/2018 Inactive (Response to an electronic controlled substance refill request - RxReferenceNumber: [id number]) lisinopril 10 mg tablet RxNorm: 018114 1 Tablet(s) PO QD 10/03/2018 0 01/21/2019 Inactive Celebrex 200 mg capsule RxNorm: 950398 TAKE ONE CAPSULE BY MOUT H TWICE A DAY 09/30/2018 05/04/2019 Inactive cyclobenzaprine 10 mg tablet RxNorm: 868840 TAKE ONE TA BLET BY MOUTH THREE TIMES A DAY NEEDED FOR MUSCLE SPASMS 09/30/2018 11/18/2018 Inactive doxepin 25 mg capsule RxNorm: 6307371 TAKE ONE CAPSULE B Y MOUTH EVERY NIGHT AT BEDTIME NEEDED 09/05/2018 10/16/2018 Inactive omeprazole 40 mg capsule,delayed release RxNorm: 955376 TAKE ONE CAPSULE BY MOUTH DAILY 09/05/2018 01/21/2019 Inactive furosemide 40 mg tablet RxNorm: 832217 TAKE ONE TABLET BY MOUTH EVERY MORNING NEEDED FOR EDEMA . TAKE WITH POTASSIUM 09/05/2018 11/03/2018 Inactive phentermine 37.5 mg tablet RxNorm: 772561 1 Tablet(s) PO QAM 201701/21/2019 Inactive doxepin 25 mg capsule RxNorm: 6040601 1 Capsule(s) PO QH S as needed for sleep TAKE ONE CAPSULE BY MOUTH EVERY NIGHT AT BEDTIME NEEDED 08/27/2018 09/04/2018 Inactive Keflex 500 mg capsule RxNorm: 786047 1 Capsule(s) PO TID 08/09/2018 1 10/19/2017 Inactive Diflucan 100 mg tablet RxNorm: 456424 1 Tablet(s) PO QD 08/09/2018 Inactive Premarin 1.25 mg tablet RxNorm: 129520 2 Tablet(s) PO QD 08/09/2018 0 05/04/2019 Inactive Zofran ODT 4 mg disintegrating tablet RxNorm: 831136 1 Tablet(s) PO Q4H as needed for nausea 08/09/2018 01/21/2019 Inactive metoprolol tartrate 100 mg tablet RxNorm: 839406 TAKE O NE TABLET BY MOUTH TWICE A DAY 2018 10/04/2018 Inactive doxepin 25 mg capsule RxNorm: 5311728 TAKE ONE CAPSULE B Y MOUTH EVERY NIGHT AT BEDTIME NEEDED 2018 08/26/2018 Inactive cyclobenzaprine 10 mg tablet RxNorm: 814711 TAKE ONE TA BLET BY MOUTH THREE TIMES A DAY NEEDED FOR MUSCLE SPASMS 2018 09/29/2018 Inactive hydrocodone 10 mg-acetaminophen 325 mg tablet RxNorm: 129890 1-2 Tablet(s) QID as needed for pain MUST LAST 30 DAYS 07/29/2018 08/27/2018 Inactive (Response to an electronic controlled substance refill request - RxReferenceNumber: [id number]) nystatin 100,000 unit/gram topical powder RxNorm: 248038 Applic ation TOP BID 07/22/2018 08/04/2018 Inactive doxepin 25 mg capsule RxNorm: 6460780 1 Capsule(s) PO QHS as needed 07/22/2018 08/05/2018 Inactive triamterene 75 mg-hydrochlorothiazide 50 mg tablet RxNorm: 3 27526 TAKE ONE TABLET BY MOUTH DAILY 07/05/2018 10/02/2018 Inactive duloxetine 60 mg capsule,delayed release RxNorm: 384487 TAKE ONE CAPSULE BY MOUTH DAILY 07/05/2018 09/02/2018 Inactive Klor-Con 8 mEq tablet,extended release RxNorm: 519314 T FARRUKH ONE TABLET BY MOUTH TWICE A DAY 07/05/2018 10/02/2018 Inactive Lipitor 10 mg tablet RxNorm: 050847 TAKE ONE TABLET BY MOUTH AT BEDTIME 07/05/2018 09/02/2018 Inactive allopurinol 300 mg tablet RxNorm: 509081 TAKE ONE TABLET BY LOPEZ TH DAILY 07/05/2018 10/02/2018 Inactive clonidine HCl 0.1 mg tablet RxNorm: 361256 TAKE ONE TAB LET BY MOUTH FOUR TIMES A DAY 07/05/2018 10/02/2018 Inactive hydrocodone 10 mg-acetaminophen 325 mg tablet RxNorm: 448053 1-2 Tablet(s) QID as needed for pain MUST LAST 30 DAYS 06/28/2018 07/27/2018 Inactive (Response to an electronic controlled substance refill request - RxReferenceNumber: [id number]) MediHoney (calcium alginate-honey) 4" X 5" bandage RxNorm: 1 Application TOP QD 06/17/2018 06/26/2018 Inactive honey-hydrocolloid dressing 4" X 5" RxNorm: 1 Application TOP QD 06/17/2018 07/16/2018 Inactive furosemide 40 mg tablet RxNorm: 297353 TAKE ONE TABLET BY MOUTH EVERY MORNING NEEDED FOR EDEMA . TAKE WITH POTASSIUM 06/10/2018 07/09/2018 Inactive This is a refill request. hydrocodone 10 mg-acetaminophen 325 mg tablet RxNorm: 256404 1-2 Tablet(s) QID as needed for pain MUST LAST 30 DAYS 05/30/2018 06/27/2018 Inactive (Response to an electronic controlled substance refill request - RxReferenceNumber: [id number]) acyclovir 800 mg tablet RxNorm: 999577 1 Tablet(s) PO 5x day 201705/22/2018 Inactive Premarin 1.25 mg tablet RxNorm: 213505 1-2 Tablet(s) PO QD 05/15/20 18 07/13/2018 Inactive cyclobenzaprine 10 mg tablet RxNorm: 066164 1 Tablet(s) PO TID as needed for muscle spasm 05/09/2018 05/08/2018 Inactive Medrol (Dustin) 4 mg tablets in a dose pack RxNorm: 815422 Tablet(s) PO As Directed 05/02/2018 06/16/2018 Inactive hydrocodone 10 mg-acetaminophen 325 mg tablet RxNorm: 987790 1-2 Tablet(s) QID as needed for pain MUST LAST 30 DAYS 04/30/2018 05/29/2018 Inactive (Response to an electronic controlled substance refill request - RxReferenceNumber: [id number]) duloxetine 60 mg capsule,delayed release RxNorm: 135075 TAKE ONE CAPSULE BY MOUTH DAILY 04/16/2018 05/15/2018 Inactive Celebrex 200 mg capsule RxNorm: 628986 TAKE ONE CAPSULE BY MOUT H TWICE A DAY 04/16/2018 06/14/2018 Inactive Singulair 10 mg tablet RxNorm: 693630 TAKE ONE TABLET BY MOUTH JOSÉ Y 04/16/2018 11/19/2018 Inactive Lipitor 10 mg tablet RxNorm: 802615 TAKE ONE TABLET BY MOUTH AT BEDTIME 04/16/2018 05/15/2018 Inactive hydrocodone 10 mg-acetaminophen 325 mg tablet RxNorm: 743198 1-2 Tablet(s) QID as needed for pain MUST LAST 30 DAYS 03/29/2018 04/27/2018 Inactive (Response to an electronic controlled substance refill request - RxReferenceNumber: [id number]) cyclobenzaprine 10 mg tablet RxNorm: 904808 1 Tablet(s) PO TID as needed for muscle spasm 03/18/2018 05/09/2018 Inactive omeprazole 40 mg capsule,delayed release RxNorm: 062644 1 Capsu le(s) PO QD 02/26/2018 08/24/2018 Inactive hydrocodone 10 mg-acetaminophen 325 mg tablet RxNorm: 848578 1-2 Tablet(s) QID as needed for pain MUST LAST 30 DAYS 02/26/2018 03/27/2018 Inactive (Response to an electronic controlled substance refill request - RxReferenceNumber: [id number]) metoprolol tartrate 100 mg tablet RxNorm: 009699 1 Tablet(s) PO BID 02/18/2018 08/05/2018 Inactive Lyrica 75 mg capsule RxNorm: 541621 1 Capsule(s) PO QHS 01/30/2018 Inactive phentermine 37.5 mg tablet RxNorm: 221832 1 Tablet(s) PO QAM 201706/16/2018 Inactive hydrocodone 10 mg-acetaminophen 325 mg tablet RxNorm: 894458 1-2 Tablet(s) QID as needed for pain MUST LAST 30 DAYS 01/29/2018 02/25/2018 Inactive (Response to an electronic controlled substance refill request - RxReferenceNumber: [id number]) Klor-Con 8 mEq tablet,extended release RxNorm: 066265 1 Tablet( s) PO BID 01/14/2018 07/04/2018 Inactive allopurinol 300 mg tablet RxNorm: 328574 1 Tablet(s) PO QD 01/15/20 18 07/04/2018 Inactive Lipitor 10 mg tablet RxNorm: 867568 1 Tablet(s) PO QHS 01/14/201812/2017 Inactive triamterene 75 mg-hydrochlorothiazide 50 mg tablet RxNorm: 3 08174 1 Tablet(s) PO QD 01/14/2018 07/04/2018 Inactive hydrocodone 10 mg-acetaminophen 325 mg tablet RxNorm: 421029 1-2 Tablet(s) QID as needed for pain MUST LAST 30 DAYS 12/27/2017 01/25/2018 Inactive (Response to an electronic controlled substance refill request - RxReferenceNumber: [id number]) Onglyza 5 mg tablet RxNorm: 395812 1 Tablet(s) PO QD 12/18/201701/29 Inactive metformin 500 mg tablet RxNorm: 394774 1 Tablet(s) PO BID 12/11/2017 12/10/2017 Inactive metformin 500 mg tablet RxNorm: 362527 1 Tablet(s) PO BID 12/11/2017 12/17/2017 Inactive furosemide 40 mg tablet RxNorm: 226535 1 Tablet(s) PO Q AM prn edema--take with potassium 12/11/2017 06/08/2018 Inactive cyclobenzaprine 10 mg tablet RxNorm: 186035 1 Tablet(s) PO TID as needed for muscle spasm 12/11/2017 03/18/2018 Inactive hydrocodone 10 mg-acetaminophen 325 mg tablet RxNorm: 595987 1-2 Tablet(s) QID as needed for pain MUST LAST 30 DAYS 10/23/2017 11/21/2017 Inactive (Response to an electronic controlled substance refill request - RxReferenceNumber: [id number]) Lipitor 10 mg tablet RxNorm: 096968 1 Tablet(s) PO QHS 10/16/201703/2018 Inactive cyclobenzaprine 10 mg tablet RxNorm: 551325 1 Tablet(s) PO TID as needed for muscle spasm 10/09/2017 12/10/2017 Inactive hydroxyzine HCl 25 mg tablet RxNorm: 086117 1 Tablet(s) PO BID as needed for anxiety 09/20/2017 01/29/2018 Inactive Effexor XR 75 mg capsule,extended release RxNorm: 110584 1 Caps ule(s) PO QD 09/20/2017 01/29/2018 Inactive metoprolol tartrate 100 mg tablet RxNorm: 482986 1 Tablet(s) PO BID 08/20/2017 02/18/2018 Inactive baclofen 20 mg tablet RxNorm: 274417 1 Tablet(s) PO TID as needed for muscle spasm 08/20/2017 01/21/2019 Inactive clonidine HCl 0.1 mg tablet RxNorm: 410485 1 Tablet(s) PO QID 08/2005/16/2018 Inactive Seroquel 25 mg tablet RxNorm: 139851 1 Tablet(s) PO QHS 08/17/2017 Inactive Seroquel 25 mg tablet RxNorm: 754725 1 Tablet(s) PO QHS 08/17/2017 Inactive Diflucan 100 mg tablet RxNorm: 049078 TAKE ONE TABLET BY MOUTH JOSÉ Y 07/25/2017 08/07/2017 Inactive hydrocodone 10 mg-acetaminophen 325 mg tablet RxNorm: 535011 1-2 Tablet(s) QID as needed for pain MUST LAST 30 DAYS 07/19/2017 08/17/2017 Inactive (Response to an electronic controlled substance refill request - RxReferenceNumber: [id number]) clindamycin 300 mg capsule RxNorm: 303309 1 Capsule(s) PO TID 07/1907/28/2017 Inactive clotrimazole-betamethasone 1 %-0.05 % topical cream RxNorm: 284824 Application TOP BID to elbow rash 07/19/2017 06/16/2018 Inactive Singulair 10 mg tablet RxNorm: 046010 Tablet(s) TAKE ONE TABLET BY MOUTH DAILY 07/18/2017 04/13/2018 Inactive triamterene 75 mg-hydrochlorothiazide 50 mg tablet RxNorm: 3 90414 1 Tablet(s) PO QD 07/18/2017 01/14/2018 Inactive Celebrex 200 mg capsule RxNorm: 319986 Capsule(s) TAKE ONE CAPSULE BY MOUTH TWICE A DAY 07/18/2017 10/15/2017 Inactive hydrocodone 10 mg-acetaminophen 325 mg tablet RxNorm: 436750 1-2 Tablet(s) QID as needed for pain MUST LAST 30 DAYS 06/19/2017 07/18/2017 Inactive (Response to an electronic controlled substance refill request - RxReferenceNumber: [id number]) hydrocodone 10 mg-acetaminophen 325 mg tablet RxNorm: 301853 1-2 Tablet(s) QID as needed for pain MUST LAST 30 DAYS 06/19/2017 06/18/2017 Inactive (Response to an electronic controlled substance refill request - RxReferenceNumber: [id number]) baclofen 20 mg tablet RxNorm: 456993 1 Tablet(s) PO TID as needed for muscle spasm 06/18/2017 08/20/2017 Inactive Medrol (Dustin) 4 mg tablets in a dose pack RxNorm: 059997 Tablet(s) PO As Directed 06/05/2017 07/18/2017 Inactive omeprazole 40 mg capsule,delayed release RxNorm: 865620 1 Capsu le(s) PO QD 04/20/2017 10/16/2017 Inactive Premarin 1.25 mg tablet RxNorm: 577596 1-2 Tablet(s) PO QD 04/11/20 17 05/15/2018 Inactive duloxetine 60 mg capsule,delayed release RxNorm: 512957 1 Capsu le(s) PO QD 04/11/2017 09/19/2017 Inactive furosemide 40 mg tablet RxNorm: 520228 1 Tablet(s) PO Q AM prn edema--take with potassium 04/11/2017 12/11/2017 Inactive Klor-Con 8 mEq tablet,extended release RxNorm: 416062 1 Tablet( s) PO BID 04/11/2017 01/14/2018 Inactive Lipitor 10 mg tablet RxNorm: 223105 1 Tablet(s) PO QHS 04/11/201702/2018 Inactive amlodipine 5 mg-benazepril 20 mg capsule RxNorm: 071956 1 Capsu le(s) PO QD 04/11/2017 01/29/2018 Inactive allopurinol 300 mg tablet RxNorm: 233274 1 Tablet(s) PO QD 04/11/2001/14/2018 Inactive clonidine HCl 0.1 mg tablet RxNorm: 102380 1 Tablet(s) PO QID 04/0508/19/2017 Inactive baclofen 20 mg tablet RxNorm: 372143 1 Tablet(s) PO TID as needed for muscle spasm 04/02/2017 06/18/2017 Inactive Premarin 1.25 mg tablet RxNorm: 028492 1-2 Tablet(s) PO QD 03/20/20 17 04/10/2017 Inactive hydrocodone 10 mg-acetaminophen 325 mg tablet RxNorm: 699875 1-2 Tablet(s) QID as needed for pain MUST LAST 30 DAYS 03/14/2017 01/21/2019 Inactive (Response to an electronic controlled substance refill request - RxReferenceNumber: [id number]) metoprolol tartrate 100 mg tablet RxNorm: 758317 1 Tablet(s) PO BID 02/12/2017 08/20/2017 Inactive hydrocodone 10 mg-acetaminophen 325 mg tablet RxNorm: 419913 1-2 Tablet(s) QID as needed for pain MUST LAST 30 DAYS 02/08/2017 03/09/2017 Inactive (Response to an electronic controlled substance refill request - RxReferenceNumber: [id number]) metoprolol tartrate 100 mg tablet RxNorm: 626407 TAKE O NE TABLET BY MOUTH TWICE A DAY 01/11/2017 02/12/2017 Inactive metoprolol tartrate 100 mg tablet RxNorm: 924785 1 Tablet(s) PO BID 12/18/2016 12/17/2016 Inactive metoprolol tartrate 100 mg tablet RxNorm: 102829 1 Tablet(s) PO BID 12/18/2016 01/10/2017 Inactive furosemide 40 mg tablet RxNorm: 545766 1 Tablet(s) PO Q AM prn edema--take with potassium 12/13/2016 02/10/2017 Inactive amitriptyline 100 mg tablet RxNorm: 768556 1 Tablet(s) PO QHS 11/2812/12/2016 Inactive baclofen 20 mg tablet RxNorm: 184048 1 Tablet(s) PO TID as needed for muscle spasm 11/14/2016 04/01/2017 Inactive triamterene 75 mg-hydrochlorothiazide 50 mg tablet RxNorm: 3 68805 1 Tablet(s) PO QD 11/14/2016 11/13/2016 Inactive metolazone 2.5 mg tablet RxNorm: 940041 TAKE ONE TABLET BY MOUTH DAILY NEEDED FOR EDEMA 11/14/2016 12/12/2016 Inactive triamterene 75 mg-hydrochlorothiazide 50 mg tablet RxNorm: 3 38452 1 Tablet(s) PO QD 11/14/2016 07/18/2017 Inactive amitriptyline 50 mg tablet RxNorm: 718675 TAKE ONE TABL ET BY MOUTH AT BEDTIME NEEDED FOR SLEEP 11/14/2016 11/27/2016 Inactive Cymbalta 60 mg capsule,delayed release RxNorm: 501639 1 Capsule (s) PO QHS 11/14/2016 12/12/2016 Inactive clonidine HCl 0.1 mg tablet RxNorm: 358303 1 Tablet(s) PO QID 11/1304/04/2017 Inactive amitriptyline 50 mg tablet RxNorm: 935749 1 Tablet(s) P O QHS as needed for sleep 11/01/2016 11/27/2016 Inactive duloxetine 60 mg capsule,delayed release RxNorm: 193193 TAKE ONE CAPSULE BY MOUTH DAILY 10/20/2016 01/17/2017 Inactive allopurinol 300 mg tablet RxNorm: 466452 TAKE ONE TABLET BY LOPEZ TH DAILY 10/20/2016 01/16/2017 Inactive Lyrica 75 mg capsule RxNorm: 517128 TAKE ONE CAPSULE BY MOUTH EVERY NIGHT AT BEDTIME 10/20/2016 12/10/2016 Inactive Klor-Con 8 mEq tablet,extended release RxNorm: 456065 T FARRUKH ONE TABLET BY MOUTH TWICE A DAY 10/20/2016 01/17/2017 Inactive Celebrex 200 mg capsule RxNorm: 743539 TAKE ONE CAPSULE BY MOUT H TWICE A DAY 10/20/2016 07/18/2017 Inactive Bystolic 10 mg tablet RxNorm: 473873 TAKE ONE TABLET BY MOUTH EVERY NIGHT AT BEDTIME 10/20/2016 12/17/2016 Inactive amlodipine 5 mg-benazepril 20 mg capsule RxNorm: 349912 TAKE ONE CAPSULE BY MOUTH EVERY NIGHT AT BEDTIME -- TO REPLACE AMLODOPINE 10/20/20162016 Inactive Lipitor 10 mg tablet RxNorm: 632517 TAKE ONE TABLET BY MOUTH EVERY NIGHT AT BEDTIME 10/20/2016 01/17/2017 Inactive alprazolam 0.5 mg tablet RxNorm: 407229 3 Tablet(s) PO QHS as needed for sleep/anxiety 09/20/2016 10/31/2016 Inactive Tamiflu 75 mg capsule RxNorm: 310659 1 Capsule(s) PO QD 09/19/2016 Inactive Lyrica 75 mg capsule RxNorm: 187468 1 Capsule(s) PO QHS 09/19/2016 Inactive prednisone 20 mg tablet RxNorm: 407976 1 Tablet(s) PO QD 08/10/2016 1 10/17/2015 Inactive doxycycline hyclate 100 mg capsule RxNorm: 3880550 1 Capsule(s) PO BID 08/10/2016 08/19/2016 Inactive Medrol (Dustin) 4 mg tablets in a dose pack RxNorm: 616378 Tablet(s) PO As Directed 07/31/2016 08/22/2016 Inactive Singulair 10 mg tablet RxNorm: 752551 TAKE ONE TABLET BY MOUTH JOSÉ Y 07/27/2016 07/18/2017 Inactive hydrocodone 10 mg-acetaminophen 325 mg tablet RxNorm: 092262 1-2 Tablet(s) QID as needed for pain MUST LAST 30 DAYS 07/26/2016 08/24/2016 Inactive (Response to an electronic controlled substance refill request - RxReferenceNumber: [id number]) alprazolam 0.5 mg tablet RxNorm: 716849 3 Tablet(s) PO QHS as needed for anxiety or sleep 07/26/2016 09/20/2016 Inactive clindamycin 300 mg capsule RxNorm: 174845 1 Capsule(s) PO TID 07/2007/29/2016 Inactive Diflucan 100 mg tablet RxNorm: 263668 1 Tablet(s) PO QD 07/20/2016 Inactive Levaquin 500 mg tablet RxNorm: 755264 1 Tablet(s) PO QD 07/17/2016 Inactive Levaquin 500 mg tablet RxNorm: 726443 1 Tablet(s) PO QD 07/10/2016 Inactive Levaquin 500 mg tablet RxNorm: 625599 1 Tablet(s) PO QD 07/10/2016 Inactive mupirocin 2 % topical ointment RxNorm: 070793 TOP Apply topically to affected areas twice daily 07/06/2016 09/18/2016 Inactive Singulair 10 mg tablet RxNorm: 479341 TAKE ONE TABLET BY MOUTH JOSÉ Y 06/21/2016 01/21/2019 Inactive alprazolam 0.5 mg tablet RxNorm: 835618 TAKE THREE TABL ETS BY MOUTH AT BEDTIME NEEDED FOR SLEEP OR STRESS 05/22/2016 06/20/2016 Inactive triamterene 75 mg-hydrochlorothiazide 50 mg tablet RxNorm: 3 30462 1 Tablet(s) PO QD 04/26/2016 01/12/2020 Inactive Premarin 1.25 mg tablet RxNorm: 056946 1-2 Tablet(s) PO QD 04/26/2003/20/2017 Inactive Klor-Con 8 mEq tablet,extended release RxNorm: 654460 1 Tablet( s) PO BID 04/26/2016 10/19/2016 Inactive Celebrex 200 mg capsule RxNorm: 391542 1 Capsule(s) PO BID TAKE ONE CAPSULE BY MOUTH EVERY DAY 04/26/2016 10/19/2016 Inactive Lipitor 10 mg tablet RxNorm: 290607 1 Tablet(s) PO QHS 04/26/201605/2017 Inactive allopurinol 300 mg tablet RxNorm: 548093 1 Tablet(s) PO QD TAKE ONE TABLET BY MOUTH EVERY DAY 04/26/2016 10/19/2016 Inactive amlodipine 5 mg-benazepril 20 mg capsule RxNorm: 918223 1 Capsule(s) PO QHS replaces amlodopine 04/26/2016 10/19/2016 Inactive duloxetine 60 mg capsule,delayed release RxNorm: 127458 1 Capsu le(s) PO QD 04/26/2016 10/19/2016 Inactive Bystolic 10 mg tablet RxNorm: 612340 1 Tablet(s) PO QHS 04/26/2016 Inactive Singulair 10 mg tablet RxNorm: 681603 1 Tablet(s) PO QD TAKE ONE TABLET BY MOUTH DAILY 04/26/2016 06/20/2016 Inactive clonidine HCl 0.1 mg tablet RxNorm: 398628 1 Tablet(s) PO QID 04/2610/22/2016 Inactive hydrocodone 10 mg-acetaminophen 325 mg tablet RxNorm: 498250 1-2 Tablet(s) QID as needed for pain TAKE ONE TO TWO TABLETS BY MOUTH FOUR TIMES A DAY . MUST LAST 30 DAYS 03/31/2016 04/29/2016 Inactive (Response to an electronic controlled substance refill request - [id number]) Klor-Con 8 mEq tablet,extended release RxNorm: 494895 T FARRUKH ONE TABLET BY MOUTH TWICE A DAY 03/24/2016 09/29/2019 Inactive prednisone 20 mg tablet RxNorm: 253921 1 Tablet(s) PO QD 03/09/2016 0 03/08/2016 Inactive prednisone 20 mg tablet RxNorm: 973459 1 Tablet(s) PO QD 03/09/2016 0 03/13/2016 Inactive alprazolam 0.5 mg tablet RxNorm: 621250 3 Tablet(s) PO QHS as needed for sleep/stress 03/02/2016 01/21/2019 Inactive mupirocin 2 % topical ointment RxNorm: 186569 TOP twice daily to affected areas of face and neck 02/21/2016 04/25/2016 Inactive clonidine HCl 0.1 mg tablet RxNorm: 949215 TAKE ONE TAB LET BY MOUTH FOUR TIMES A DAY 02/15/2016 09/29/2019 Inactive clonidine HCl 0.1 mg tablet RxNorm: 588174 1 Tablet(s) PO QID 02/1404/25/2016 Inactive Premarin 1.25 mg tablet RxNorm: 946741 1-2 Tablet(s) PO QD 02/15/20 16 03/15/2016 Inactive Klor-Con 8 mEq tablet,extended release RxNorm: 392246 T FARRUKH ONE TABLET BY MOUTH TWICE A DAY 02/15/2016 03/15/2016 Inactive potassium chloride ER 20 mEq tablet,extended release(part/cr yst) RxNorm: 116965 2 Tablet(s) PO BID 02/15/2016 03/15/2016 Inactive Macrobid 100 mg capsule RxNorm: 662133 1 Capsule(s) PO BID 01/24/20 16 01/30/2016 Inactive prednisone 20 mg tablet RxNorm: 021579 Take 3tabs PO QD x 2 days, then 2 tabs PO QD x 2 days, then 1 tab PO QD x 2 days, then 1/2 tab PO QDy x 2 days 12/23/2015 04/25/2016 Inactive Klor-Con 8 mEq tablet,extended release RxNorm: 693532 T FARRUKH ONE TABLET BY MOUTH TWICE A DAY 12/20/2015 02/14/2016 Inactive alprazolam 1 mg tablet RxNorm: 411405 1 1/2 Tablet(s) PO QHS 201501/23/2016 Inactive nystatin 100,000 unit/gram topical cream RxNorm: 248057 APPLY TO AFFECTED AREA(S) TWO TIMES A DAY 11/30/2015 12/14/2015 Inactive Singulair 10 mg tablet RxNorm: 704128 TAKE ONE TABLET BY MOUTH JOSÉ Y 11/18/2015 04/25/2016 Inactive allopurinol 300 mg tablet RxNorm: 154790 1 Tablet(s) PO QD TAKE ONE TABLET BY MOUTH EVERY DAY 10/26/2015 04/22/2016 Inactive Singulair 10 mg tablet RxNorm: 240684 TAKE ONE TABLET BY MOUTH JOSÉ Y 10/26/2015 11/17/2015 Inactive duloxetine 60 mg capsule,delayed release RxNorm: 963870 1 Capsu le(s) PO QD 10/26/2015 04/22/2016 Inactive triamterene 75 mg-hydrochlorothiazide 50 mg tablet RxNorm: 3 13727 1 Tablet(s) PO QD 10/26/2015 11/14/2016 Inactive potassium chloride ER 20 mEq tablet,extended release(part/cr yst) RxNorm: 355097 2 Tablet(s) PO BID 10/26/2015 02/14/2016 Inactive Lipitor 10 mg tablet RxNorm: 596398 1 Tablet(s) PO QHS 10/26/2015 Inactive amlodipine 5 mg-benazepril 20 mg capsule RxNorm: 136770 1 Capsule(s) PO QHS replaces amlodopine 10/26/2015 04/22/2016 Inactive Bystolic 10 mg tablet RxNorm: 237176 1 Tablet(s) PO QHS 10/26/2015 Inactive amlodipine 5 mg-benazepril 20 mg capsule RxNorm: 597278 1 Capsule(s) PO QHS replaces amlodopine 10/06/2015 10/25/2015 Inactive amlodipine 5 mg tablet RxNorm: 842881 1 Tablet(s) PO QHS 09/30/2015 0 04/25/2016 Inactive metolazone 2.5 mg tablet RxNorm: 903243 TAKE ONE TABLET BY MOUTH DAILY NEEDED FOR EDEMA 09/30/2015 01/21/2019 Inactive duloxetine 60 mg capsule,delayed release RxNorm: 079211 1 Capsu le(s) PO QD 09/30/2015 10/25/2015 Inactive cephalexin 500 mg capsule RxNorm: 602564 1 Capsule(s) PO BID 201509/23/2015 Inactive mupirocin 2 % topical ointment RxNorm: 913364 TOP twice daily to affected areas of face and neck 09/14/2015 02/20/2016 Inactive baclofen 20 mg tablet RxNorm: 333593 1 Tablet(s) PO TID as needed for muscle spasm 09/01/2015 11/14/2016 Inactive clonidine HCl 0.1 mg tablet RxNorm: 808703 1 Tablet(s) PO QID 09/0102/14/2016 Inactive alprazolam 1 mg tablet RxNorm: 643511 1 1/2 Tablet(s) PO QHS 201409/09/2015 Inactive baclofen 20 mg tablet RxNorm: 504563 1 Tablet(s) PO TID as needed for muscle spasm 07/23/2015 09/01/2015 Inactive omeprazole 40 mg capsule,delayed release RxNorm: 919209 1 Capsu le(s) PO QD 07/23/2015 04/25/2016 Inactive alprazolam 1 mg tablet RxNorm: 777230 1 1/2 Tablet(s) PO QHS 201408/10/2015 Inactive Bystolic 10 mg tablet RxNorm: 493536 1 Tablet(s) PO BID 06/24/2015 Inactive allopurinol 300 mg tablet RxNorm: 651965 1 Tablet(s) PO QD TAKE ONE TABLET BY MOUTH EVERY DAY 06/23/2015 10/20/2015 Inactive alprazolam 1 mg tablet RxNorm: 394349 1 1/2 Tablet(s) PO QHS 201407/06/2015 Inactive clonidine HCl 0.1 mg tablet RxNorm: 806214 1 Tablet(s) PO QID 06/0209/01/2015 Inactive clonidine HCl 0.1 mg tablet RxNorm: 189731 1 Tablet(s) PO QID 06/0206/01/2015 Inactive Cymbalta 60 mg capsule,delayed release RxNorm: 637005 1 Capsule (s) PO QHS 06/02/2015 08/30/2015 Inactive Cymbalta 60 mg capsule,delayed release RxNorm: 148179 1 Capsule (s) PO QHS 06/02/2015 06/01/2015 Inactive clonidine HCl 0.1 mg tablet RxNorm: 884913 1 Tablet(s) PO TID 05/3106/01/2015 Inactive replaces 0.2mg dose metolazone 2.5 mg tablet RxNorm: 715049 TAKE ONE TABLET BY MOUTH DAILY NEEDED FOR EDEMA 05/21/2015 06/19/2015 Inactive Singulair 10 mg tablet RxNorm: 611294 TAKE ONE TABLET BY MOUTH JOSÉ Y 05/21/2015 10/17/2015 Inactive Cymbalta 30 mg capsule,delayed release RxNorm: 939116 1 Capsule (s) PO QHS 05/20/2015 11/14/2016 Inactive betamethasone valerate 0.1 % topical cream RxNorm: 935947 Appli cation TOP BID 05/10/2015 04/25/2016 Inactive Bactroban 2 % topical ointment RxNorm: 004393 Application TOP BID 0 05/10/2015 06/20/2015 Inactive baclofen 20 mg tablet RxNorm: 801207 1 Tablet(s) PO TID as needed 0 04/26/2015 07/23/2015 Inactive Lipitor 10 mg tablet RxNorm: 589592 1 Tablet(s) PO QHS 04/26/201508/2016 Inactive clonidine HCl 0.1 mg tablet RxNorm: 265486 1 Tablet(s) PO TID 04/2605/30/2015 Inactive replaces 0.2mg dose Klor-Con 8 mEq tablet,extended release RxNorm: 785885 1 Tablet( s) PO BID 04/26/2015 04/25/2016 Inactive metolazone 2.5 mg tablet RxNorm: 257393 1 Tablet(s) PO QD as ne eded for edema 04/26/2015 04/25/2015 Inactive triamterene 75 mg-hydrochlorothiazide 50 mg tablet RxNorm: 3 45371 1 Tablet(s) PO QD 04/26/2015 10/22/2015 Inactive Premarin 1.25 mg tablet RxNorm: 993495 1-2 Tablet(s) PO QD 04/26/20 15 10/22/2015 Inactive Bystolic 10 mg tablet RxNorm: 408524 1 Tablet(s) PO QAM TAKE ONE TABLET BY MOUTH EVERY MORNING 04/23/2015 06/23/2015 Inactive clonidine HCl 0.1 mg tablet RxNorm: 061957 1 Tablet(s) PO TID 03/2304/25/2015 Inactive replaces 0.2mg dose nystatin 100,000 unit/gram topical cream RxNorm: 540748 Applica tion TOP BID 03/23/2015 06/20/2015 Inactive baclofen 20 mg tablet RxNorm: 162834 1 Tablet(s) PO TID as needed 0 03/23/2015 04/25/2015 Inactive Premarin 1.25 mg tablet RxNorm: 752300 1-2 Tablet(s) PO QD 03/23/20 15 04/25/2015 Inactive Klor-Con 8 mEq tablet,extended release RxNorm: 150764 1 Tablet( s) PO BID 03/23/2015 04/25/2015 Inactive cefdinir 300 mg capsule RxNorm: 977706 2 Capsule(s) PO QD 03/16/2015 03/25/2015 Inactive baclofen 20 mg tablet RxNorm: 005083 1 Tablet(s) PO TID as needed 0 03/02/2015 03/22/2015 Inactive allopurinol 300 mg tablet RxNorm: 622378 1 Tablet(s) PO QD TAKE ONE TABLET BY MOUTH EVERY DAY 02/22/2015 05/22/2015 Inactive Klor-Con M20 mEq tablet,extended release RxNorm: 199363 2 Tablet(s) PO BID to use with lasix 02/22/2015 06/20/2015 Inactive clonidine HCl 0.1 mg tablet RxNorm: 544867 1 Tablet(s) PO TID 02/1903/22/2015 Inactive replaces 0.2mg dose Lipitor 10 mg tablet RxNorm: 130348 1 Tablet(s) PO QHS 01/20/201506/2015 Inactive Lipitor 10 mg tablet RxNorm: 971070 1 Tablet(s) PO QHS 01/20/2015 Inactive Singulair 10 mg tablet RxNorm: 974320 1 Tablet(s) PO QD TAKE ONE TABLET BY MOUTH EVERY DAY 11/20/2014 05/18/2015 Inactive Lipitor 10 mg tablet RxNorm: 494567 1 Tablet(s) PO QHS 11/20/201408/2015 Inactive allopurinol 300 mg tablet RxNorm: 336116 1 Tablet(s) PO QD TAKE ONE TABLET BY MOUTH EVERY DAY 11/20/2014 02/16/2015 Inactive Bystolic 10 mg tablet RxNorm: 133811 1 Tablet(s) PO QAM TAKE ONE TABLET BY MOUTH EVERY MORNING 11/20/2014 04/22/2015 Inactive Klor-Con 8 mEq tablet,extended release RxNorm: 529149 1 Tablet( s) PO BID 11/20/2014 02/17/2015 Inactive baclofen 20 mg tablet RxNorm: 197568 1 Tablet(s) PO TID as needed 0 11/20/2014 01/21/2019 Inactive baclofen 20 mg tablet RxNorm: 911634 1 Tablet(s) PO TID as needed 0 10/27/2014 11/19/2014 Inactive baclofen 20 mg tablet RxNorm: 063181 1 Tablet(s) PO TID as needed 0 10/26/2014 03/01/2015 Inactive allopurinol 300 mg tablet RxNorm: 701570 1 Tablet(s) PO QD TAKE ONE TABLET BY MOUTH EVERY DAY 10/26/2014 11/20/2014 Inactive Bystolic 10 mg tablet RxNorm: 848798 1 Tablet(s) PO QAM TAKE ONE TABLET BY MOUTH EVERY MORNING 10/26/2014 11/20/2014 Inactive clonidine HCl 0.1 mg tablet RxNorm: 042198 1 Tablet(s) PO TID 09/2805/27/2019 Inactive replaces 0.2mg dose clonidine HCl 0.1 mg tablet RxNorm: 701141 1 Tablet(s) PO TID 09/2802/18/2015 Inactive replaces 0.2mg dose baclofen 20 mg tablet RxNorm: 259228 1 Tablet(s) PO TID as needed 1 11/01/2013 08/30/2014 Inactive Lipitor 10 mg tablet RxNorm: 041443 1 Tablet(s) PO QHS 08/31/2014 Inactive baclofen 20 mg tablet RxNorm: 297764 1 Tablet(s) PO TID as needed 1 11/01/2013 10/26/2014 Inactive triamterene 75 mg-hydrochlorothiazide 50 mg tablet RxNorm: 3 70422 1 Tablet(s) PO QD 08/31/2014 02/26/2015 Inactive Klor-Con 8 mEq tablet,extended release RxNorm: 994061 1 Tablet( s) PO BID 08/31/2014 11/20/2014 Inactive baclofen 20 mg tablet RxNorm: 263847 1 Tablet(s) PO TID as needed 1 09/30/2013 10/25/2014 Inactive baclofen 20 mg tablet RxNorm: 832482 1 Tablet(s) PO TID as needed 1 09/30/2013 08/31/2014 Inactive omeprazole 40 mg capsule,delayed release RxNorm: 509327 1 Capsu le(s) PO QD 07/21/2014 07/23/2015 Inactive Flonase 50 mcg/actuation nasal spray,suspension RxNorm: 8963 23 1 [place] NASAL BID 07/15/2014 04/09/2017 Inactive hydrocodone 10 mg-acetaminophen 325 mg tablet RxNorm: 236173 1-2 Tablet(s) QID as needed for pain TAKE ONE TO TWO TABLETS BY MOUTH FOUR TIMES A DAY . MUST LAST 30 DAYS 06/30/2014 07/27/2014 Inactive (Response to an electronic controlled substance refill request - RxReferenceNumber: [id number]) baclofen 20 mg tablet RxNorm: 640148 1 Tablet(s) PO TID as needed 1 07/31/2014 Inactive Singulair 10 mg tablet RxNorm: 018271 1 Tablet(s) PO QD TAKE ONE TABLET BY MOUTH EVERY DAY 05/25/2014 11/20/2014 Inactive Bystolic 10 mg tablet RxNorm: 208062 TAKE ONE TABLET BY MOUTH E VERY MORNING 05/25/2014 09/21/2014 Inactive allopurinol 300 mg tablet RxNorm: 440465 1 Tablet(s) PO QD TAKE ONE TABLET BY MOUTH EVERY DAY 05/25/2014 10/21/2014 Inactive baclofen 20 mg tablet RxNorm: 422218 1 Tablet(s) PO TID as needed 0 05/25/2014 06/29/2014 Inactive allopurinol 300 mg tablet RxNorm: 220654 TAKE ONE TABLET BY LOPEZ TH EVERY DAY 05/25/2014 09/21/2014 Inactive Singulair 10 mg tablet RxNorm: 330059 1 Tablet(s) PO QD TAKE ONE TABLET BY MOUTH EVERY DAY 05/25/2014 05/24/2014 Inactive Bystolic 10 mg tablet RxNorm: 978570 1 Tablet(s) PO QAM TAKE ONE TABLET BY MOUTH EVERY MORNING 05/25/2014 10/21/2014 Inactive metolazone 2.5 mg tablet RxNorm: 086422 1 Tablet(s) PO QD as ne eded for edema 05/18/2014 04/25/2015 Inactive Lasix 40 mg tablet RxNorm: 280846 1 Tablet(s) PO QAM s hould take potassium supplementation with this medication 05/14/2014 05/17/2014 Inactive hydrocodone 10 mg-acetaminophen 325 mg tablet RxNorm: 342747 1-2 Tablet(s) QID as needed for pain TAKE ONE TO TWO TABLETS BY MOUTH FOUR TIMES A DAY . MUST LAST 30 DAYS 05/07/2014 06/05/2014 Inactive (Response to an electronic controlled substance refill request - RxReferenceNumber: [id number]) alprazolam 0.5 mg tablet RxNorm: 647822 TAKE ONE TABLET BY MOUTH TWICE A DAY , MUST LAST 30 DAYS 05/07/2014 05/22/2016 Inactive (Response to a n electronic controlled substance refill request - RxReferenceNumber: [id number]) diclofenac sodium 75 mg tablet,delayed release RxNorm: 79879 6 1 Tablet(s) PO BID for pain 04/24/2014 07/20/2014 Inactive Celebrex 200 mg capsule RxNorm: 658828 TAKE ONE CAPSULE BY MOUT H EVERY DAY 04/24/2014 07/20/2014 Inactive alprazolam 0.5 mg tablet RxNorm: 425648 TAKE ONE TABLET BY MOUTH TWICE A DAY , MUST LAST 30 DAYS 03/24/2014 04/22/2014 Inactive (Response to a n electronic controlled substance refill request - RxReferenceNumber: [id number]) diclofenac sodium 75 mg tablet,delayed release RxNorm: 28812 6 1 Tablet(s) PO BID for pain 03/24/2014 04/24/2014 Inactive clonidine HCl 0.1 mg tablet RxNorm: 557705 1 Tablet(s) PO TID 03/2409/28/2014 Inactive replaces 0.2mg dose Klor-Con 8 mEq tablet,extended release RxNorm: 818555 1 Tablet( s) PO BID 02/26/2014 08/31/2014 Inactive diclofenac sodium 75 mg tablet,delayed release RxNorm: 86496 6 1 Tablet(s) PO BID for pain 02/25/2014 03/24/2014 Inactive hydrocodone 10 mg-acetaminophen 325 mg tablet RxNorm: 813162 1-2 Tablet(s) QID as needed for pain TAKE ONE TO TWO TABLETS BY MOUTH FOUR TIMES A DAY . MUST LAST 30 DAYS 02/25/2014 03/26/2014 Inactive (Response to an electronic controlled substance refill request - RxReferenceNumber: [id number]) alprazolam 0.5 mg tablet RxNorm: 632970 Tablet(s) PO BI D as needed for anxiety TAKE ONE TABLET BY MOUTH TWICE A DAY , MUST LAST 30 DAYS 02/25/2014 Inactive (Response to an electronic controlled [place] bstance refill request - RxReferenceNumber: [id number]) [AttnRPh: Saving apply/adjudicate RxGRP:SG20 RxBIN:[id number] RxN: ID#:[id number]] alprazolam 0.5 mg tablet RxNorm: 448109 Tablet(s) TAKE ONE TABLET BY MOUTH TWICE A DAY , MUST LAST 30 DAYS 01/27/2014 02/24/2014 Inactive (Respo nse to an electronic controlled substance refill request - RxReferenceNumber: [id number]) [AttnRPh: Saving apply/adjudicate RxGRP:SG20 RxBIN:[id number] RxPCN: ID#:[id number]] hydrocodone 10 mg-acetaminophen 325 mg tablet RxNorm: 190603 1-2 Tablet(s) QID as needed for pain TAKE ONE TO TWO TABLETS BY MOUTH FOUR TIMES A DAY . MUST LAST 30 DAYS 01/27/2014 02/24/2014 Inactive (Response to an electronic controlled substance refill request - RxReferenceNumber: [id number]) alprazolam 0.5 mg tablet RxNorm: 162973 TAKE ONE TABLET BY MOUTH TWICE A DAY , MUST LAST 30 DAYS 01/27/2014 01/26/2014 Inactive (Response to a n electronic controlled substance refill request - RxReferenceNumber: [id number]) Premarin 1.25 mg tablet RxNorm: 995676 1-2 Tablet(s) PO QD 01/28/20 14 07/25/2014 Inactive alprazolam 0.5 mg tablet RxNorm: 955094 TAKE ONE TABLET BY MOUTH TWICE A DAY , MUST LAST 30 DAYS 01/27/2014 01/27/2014 Inactive (Response to a n electronic controlled substance refill request - RxReferenceNumber: [id number]) hydrocodone 10 mg-acetaminophen 325 mg tablet RxNorm: 681951 TAKE ONE TO TWO TABLETS BY MOUTH FOUR TIMES A DAY . MUST LAST 30 DAYS 01/27/20142013 Inactive (Response to an electronic controlled [place] bstance refill request - RxReferenceNumber: [id number]) Celebrex 200 mg capsule RxNorm: 782294 1 Capsule(s) PO QD TAKE ONE CAPSULE BY MOUTH EVERY DAY 12/29/2013 04/27/2014 Inactive hydrocodone 10 mg-acetaminophen 325 mg tablet RxNorm: 703781 1-2 Tablet(s) PO QID as needed for severe pain 12/29/2013 01/27/2014 Inactive allopurinol 300 mg tablet RxNorm: 685209 1 Tablet(s) PO QD TAKE ONE TABLET BY MOUTH EVERY DAY 12/29/2013 05/24/2014 Inactive alprazolam 0.5 mg tablet RxNorm: 259181 TAKE ONE TABLET BY MOUTH TWICE A DAY , MUST LAST 30 DAYS 12/29/2013 01/27/2014 Inactive (Response to a n electronic controlled substance refill request - RxReferenceNumber: [id number]) Celebrex 200 mg capsule RxNorm: 338010 1 Capsule(s) PO QD TAKE ONE CAPSULE BY MOUTH EVERY DAY 12/29/2013 12/29/2013 Inactive Bystolic 10 mg tablet RxNorm: 598973 1 Tablet(s) PO QAM TAKE ONE TABLET BY MOUTH EVERY MORNING 12/29/2013 05/24/2014 Inactive Bystolic 10 mg tablet RxNorm: 475916 1 Tablet(s) PO QAM TAKE ONE TABLET BY MOUTH EVERY MORNING 12/29/2013 12/29/2013 Inactive Singulair 10 mg tablet RxNorm: 413865 1 Tablet(s) PO QD TAKE ONE TABLET BY MOUTH EVERY DAY 12/29/2013 05/25/2014 Inactive hydrocodone 10 mg-acetaminophen 325 mg tablet RxNorm: 892984 TAKE ONE TO TWO TABLETS BY MOUTH FOUR TIMES A DAY . MUST LAST 30 DAYS 12/29/20132013 Inactive (Response to an electronic controlled [place] bstance refill request - RxReferenceNumber: [id number]) Trazadone 75mg Tablet RxNorm: 1 Tablet(s) PO QHS as needed 03/23/2014 Inactive Trazadone 75mg Tablet RxNorm: 1 Tablet(s) PO QHS 12/24/20132014 Inactive Soma 350 mg tablet RxNorm: 967476 Tablet(s) PO TAKE ON E TABLET BY MOUTH THREE TIMES A DAY NEEDED FOR MUSCLE SPASMS. THIS MUST LAST 30 DAYS BETWEEN REFILLS. 12/10/2013 12/22/2013 Inactive (Appended: Cont rolled substance eRx refill - RxReferenceNumber: [id number]) diclofenac sodium 75 mg tablet,delayed release RxNorm: 10355 6 1 Tablet(s) PO BID for pain 12/10/2013 02/24/2014 Inactive allopurinol 300 mg tablet RxNorm: 396886 1 Tablet(s) PO QD 11/20/19 14 12/29/2013 Inactive alprazolam 0.5 mg tablet RxNorm: 255206 2 Tablet(s) PO BID 11/13/19 14 12/29/2013 Inactive prn clonidine 0.1 mg tablet RxNorm: 744734 1 Tablet(s) PO TID 11/12/2013 02/09/2014 Inactive replaces 0.2mg dose Klor-Con M20 mEq tablet,extended release RxNorm: 998273 2 Tablet(s) PO BID to use with lasix 11/12/2013 05/10/2014 Inactive Singulair 10 mg tablet RxNorm: 527320 1 Tablet(s) PO QD 11/12/2013 Inactive hydrocodone 10 mg-acetaminophen 325 mg tablet RxNorm: 843436 1-2 Tablet(s) PO QID as needed for severe pain 11/12/2013 12/28/2013 Inactive Bystolic 10 mg tablet RxNorm: 152755 1 Tablet(s) PO QAM 11/12/2013 Inactive Soma 350 mg tablet RxNorm: 257815 Tablet(s) PO TAKE ON E TABLET BY MOUTH THREE TIMES A DAY NEEDED FOR MUSCLE SPASMS. THIS MUST LAST 30 DAYS BETWEEN REFILLS. 10/13/2013 12/10/2013 Inactive (Appended: Cont rolled substance eRx refill - RxReferenceNumber: [id number]) hydrocodone 10 mg-acetaminophen 325 mg tablet RxNorm: 924651 1-2 Tablet(s) PO QID as needed for severe pain 10/03/2013 11/11/2013 Inactive diclofenac sodium 75 mg tablet,delayed release RxNorm: 43603 8 1 Tablet(s) PO BID for pain 09/11/2013 12/10/2013 Inactive alprazolam 0.5 mg tablet RxNorm: 675090 1 Tablet(s) PO BID May refill on 04/26/13 09/01/2013 10/30/2013 Inactive prn hydrocodone 10 mg-acetaminophen 325 mg tablet RxNorm: 255006 1-2 Tablet(s) PO QID as needed for severe pain 09/01/2013 10/02/2013 Inactive triamterene 75 mg-hydrochlorothiazide 50 mg tablet RxNorm: 3 12527 1 Tablet(s) PO QD 08/04/2013 08/31/2014 Inactive cyclobenzaprine 10 mg tablet RxNorm: 471483 1 Tablet(s) PO TID prn spasm 08/04/2013 08/13/2013 Inactive clonidine 0.1 mg tablet RxNorm: 496852 1 Tablet(s) PO TID 08/04/2013 11/11/2013 Inactive replaces 0.2mg dose cyclobenzaprine 10 mg tablet RxNorm: 175028 1 Tablet(s) PO TID prn spasm 07/23/2013 08/01/2013 Inactive hydrocodone 10 mg-acetaminophen 325 mg tablet RxNorm: 945337 2 1-2 Tablet(s) PO QID as needed for severe pain 06/09/2013 08/07/2013 Inactive Singulair 10 mg tablet RxNorm: 603621 1 Tablet(s) PO QD 05/29/2013 Inactive Klor-Con 8 mEq tablet,extended release RxNorm: 642844 1 Tablet( s) PO BID 05/29/2013 02/26/2014 Inactive allopurinol 300 mg tablet RxNorm: 570694 1 Tablet(s) PO QD 05/29/20 13 11/19/2013 Inactive Bystolic 10 mg tablet RxNorm: 271959 1 Tablet(s) PO QAM take one daily in the morning. 05/29/2013 11/11/2013 Inactive scopolamine 1.5 mg 72 hr Transderm Patch RxNorm: 258654 Application TD Q72H for motion sickness 05/26/2013 07/22/2013 Inactive Soma 350 mg tablet RxNorm: 504994 1 Tablet(s) PO TID as needed for spasm 05/19/2013 10/13/2013 Inactive diclofenac sodium 75 mg tablet,delayed release RxNorm: 70326 8 1 Tablet(s) PO BID for pain 05/14/2013 07/22/2013 Inactive allopurinol 300 mg tablet RxNorm: 681241 1 Tablet(s) PO QD 04/25/20 13 05/28/2013 Inactive alprazolam 0.5 mg tablet RxNorm: 584260 1 Tablet(s) PO BID May refill on 04/26/13 04/25/2013 06/23/2013 Inactive prn Celebrex 200 mg capsule RxNorm: 110673 1 Capsule(s) PO QD 04/16/2013 12/29/2013 Inactive alprazolam 0.5 mg tablet RxNorm: 246591 1 Tablet(s) PO BID May refill on 04/26/13 04/16/2013 04/24/2013 Inactive prn Soma 350 mg tablet RxNorm: 447184 1 Tablet(s) PO TID as needed for spasm 04/16/2013 No Stop Date Active Lasix 40 mg tablet RxNorm: 875029 1 Tablet(s) PO QAM s hould take potassium supplementation with this medication 04/16/2013 06/14/2013 Inactive clonidine 0.1 mg tablet RxNorm: 799717 1 Tablet(s) PO TID 04/16/2013 08/03/2013 Inactive replaces 0.2mg dose prednisone 20 mg tablet RxNorm: 305310 1 Tablet(s) PO BID 04/16/2013 04/20/2013 Inactive diclofenac sodium 75 mg tablet,delayed release RxNorm: 87953 8 1 Tablet(s) PO BID for pain 04/14/2013 05/13/2013 Inactive hydrocodone 10 mg-acetaminophen 325 mg tablet RxNorm: 671428 2 1-2 Tablet(s) PO QID as needed for severe pain 04/14/2013 No Stop Date Active Lasix 40 mg tablet RxNorm: 475101 1 Tablet(s) PO QAM s hould take potassium supplementation with this medication 03/31/2013 04/15/2013 Inactive Celebrex 200 mg capsule RxNorm: 578926 1 Capsule(s) PO QD 03/31/2013 04/15/2013 Inactive alprazolam 0.5 mg tablet RxNorm: 467341 1 Tablet(s) PO BID 03/28/20 13 04/15/2013 Inactive prn hydrocodone 10 mg-acetaminophen 325 mg tablet RxNorm: 259328 2 1-2 Tablet(s) PO QID as needed for severe pain 03/10/2013 No Stop Date Active metformin ER 500 mg 24 hr tablet,extended release RxNorm: 86 1018 1 Tablet(s) PO QD 03/06/2013 07/22/2013 Inactive clindamycin 300 mg capsule RxNorm: 775381 2 Capsule(s) PO TID 03/0503/14/2013 Inactive Zaroxolyn 2.5 mg tablet RxNorm: 101789 1 Tablet(s) PO QAM 03/05/2013 05/19/2015 Inactive amlodipine 10 mg tablet RxNorm: 329047 1 Tablet(s) PO QD 03/03/2013 0 05/25/2013 Inactive Norvasc 10 mg tablet RxNorm: 060383 1 Tablet(s) PO QD 02/28/201307/11 Inactive Celebrex 200 mg capsule RxNorm: 450274 1 Capsule(s) PO QD 02/28/2013 03/30/2013 Inactive diclofenac sodium 75 mg tablet,delayed release RxNorm: 15118 8 1 Tablet(s) PO BID for pain 02/14/2013 03/15/2013 Inactive Soma 350 mg tablet RxNorm: 879952 1 Tablet(s) PO TID as needed for spasm 02/14/2013 No Stop Date Active hydrocodone 10 mg-acetaminophen 325 mg tablet RxNorm: 730881 2 1-2 Tablet(s) PO QID as needed for severe pain 02/14/2013 No Stop Date Active Norvasc 10 mg tablet RxNorm: 864592 1 Tablet(s) PO QD 02/10/201302/09 Inactive Celebrex 200 mg capsule RxNorm: 897132 1 Capsule(s) PO QD 01/27/2013 01/26/2013 Inactive Premarin 1.25 mg tablet RxNorm: 742645 1-2 Tablet(s) PO QD 01/28/20 13 06/25/2013 Inactive alprazolam 0.5 mg tablet RxNorm: 542750 1 Tablet(s) PO BID 01/28/20 13 02/25/2013 Inactive prn amlodipine 5 mg tablet RxNorm: 513949 1 Tablet(s) PO QD 01/27/2013 Inactive Celebrex 200 mg capsule RxNorm: 824068 1 Capsule(s) PO QD 01/27/2013 02/27/2013 Inactive gabapentin 600 mg tablet RxNorm: 394227 1 Tablet(s) PO QHS 01/16/20 13 07/22/2013 Inactive Soma 350 mg tablet RxNorm: 117732 1 Tablet(s) PO TID as needed for spasm 01/15/2013 No Stop Date Active hydrocodone 10 mg-acetaminophen 325 mg tablet RxNorm: 092450 2 1-2 Tablet(s) PO QID as needed for severe pain 01/15/2013 No Stop Date Active Soma 350 mg tablet RxNorm: 202371 1 Tablet(s) PO TID as needed for spasm 01/13/2013 No Stop Date Active alprazolam 0.5 mg tablet RxNorm: 948797 1 Tablet(s) PO BID 12/31/19 13 01/26/2013 Inactive prn diclofenac sodium 75 mg tablet,delayed release RxNorm: 66308 8 1 Tablet(s) PO BID for pain 12/09/2012 01/07/2013 Inactive gabapentin 600 mg tablet RxNorm: 782127 1 Tablet(s) PO QHS 12/10/19 13 01/07/2013 Inactive hydrocodone 10 mg-acetaminophen 325 mg tablet RxNorm: 706192 2 1-2 Tablet(s) PO QID as needed for severe pain 12/02/2012 No Stop Date Active Levaquin 750 mg tablet RxNorm: 945296 1 Tablet(s) PO QD 11/21/2012 Inactive Singulair 10 mg tablet RxNorm: 834318 1 Tablet(s) PO QD 11/11/2012 Inactive clonidine 0.2 mg tablet RxNorm: 727045 1 Tablet(s) PO TID 11/11/2012 04/15/2013 Inactive alprazolam 0.5 mg tablet RxNorm: 528906 1 Tablet(s) PO BID 11/12/19 13 12/10/2012 Inactive prn Klor-Con 8 mEq tablet,extended release RxNorm: 972706 1 Tablet( s) PO BID 11/11/2012 03/04/2013 Inactive hydrocodone 10 mg-acetaminophen 325 mg tablet RxNorm: 709954 2 1-2 Tablet(s) PO QID as needed for severe pain 11/06/2012 No Stop Date Active alprazolam 0.5 mg tablet RxNorm: 322785 1 Tablet(s) PO BID 10/15/19 13 11/10/2012 Inactive prn hydrocodone-acetaminophen 10 mg-325 mg tablet RxNorm: 511895 2 1-2 Tablet(s) PO QID as needed for severe pain 10/10/2012 10/09/2012 Inactive allopurinol 300 mg tablet RxNorm: 099541 1 Tablet(s) PO QD 09/20/19 13 12/18/2012 Inactive alprazolam 0.5 mg tablet RxNorm: 194682 1 Tablet(s) PO BID 09/17/19 13 10/14/2012 Inactive prn hydrocodone-acetaminophen 10 mg-325 mg tablet RxNorm: 251941 2 1-2 Tablet(s) PO QID as needed for severe pain 08/22/2012 08/21/2012 Inactive Norvasc 10 mg tablet RxNorm: 391297 1 Tablet(s) PO QD 08/12/201201/10 Inactive Premarin 1.25 mg tablet RxNorm: 592755 1-2 Tablet(s) PO QD 07/30/20 12 12/26/2012 Inactive alprazolam 0.5 mg tablet RxNorm: 633862 1 Tablet(s) PO BID 07/29/20 12 08/27/2012 Inactive prn Klor-Con 8 mEq tablet,extended release RxNorm: 350024 1 Tablet( s) PO BID 07/29/2012 11/10/2012 Inactive hydrocodone-acetaminophen 10 mg-325 mg tablet RxNorm: 478491 2 1-2 Tablet(s) PO QID as needed for severe pain 07/29/2012 No Stop Date Active Premarin 1.25 mg tablet RxNorm: 892612 1-2 Tablet(s) PO QD 07/29/20 12 07/29/2012 Inactive clonidine 0.2 mg tablet RxNorm: 876410 1 Tablet(s) PO TID 07/29/2012 10/28/2012 Inactive ketorolac 10 mg tablet RxNorm: 840010 1 Tablet(s) PO QID prn he adache 07/18/2012 No Stop Date Active hydrocodone-acetaminophen 10 mg-325 mg tablet RxNorm: 671309 2 1-2 Tablet(s) PO QID as needed for severe pain 07/03/2012 No Stop Date Active amlodipine 5 mg tablet RxNorm: 436036 1 Tablet(s) PO QD 07/02/2012 Inactive allopurinol 300 mg tablet RxNorm: 957568 1 Tablet(s) PO QD 07/02/2009/19/2012 Inactive Celebrex 200 mg capsule RxNorm: 271431 1 Capsule(s) PO QD for j oint pain 06/26/2012 10/23/2012 Inactive diclofenac sodium 75 mg tablet,delayed release RxNorm: 53142 8 1 Tablet(s) PO BID for pain 06/19/2012 09/16/2012 Inactive hydrocodone-acetaminophen 10 mg-325 mg tablet RxNorm: 458953 2 1-2 Tablet(s) PO QID as needed for severe pain 06/10/2012 No Stop Date Active alprazolam 0.5 mg tablet RxNorm: 245160 1 Tablet(s) PO BID 06/03/20 12 07/02/2012 Inactive prn ketorolac 10 mg tablet RxNorm: 059307 1 Tablet(s) PO Q8H 05/27/2012 0 01/21/2019 Inactive as needed for headache hydrocodone-acetaminophen 10 mg-325 mg tablet RxNorm: 676292 2 1-2 Tablet(s) PO QID as needed for severe pain 05/15/2012 No Stop Date Active allopurinol 300 mg tablet RxNorm: 076840 1 Tablet(s) PO QD 05/14/20 12 06/12/2012 Inactive allopurinol 300 mg tablet RxNorm: 188462 1 Tablet(s) PO QD 05/14/20 12 05/13/2012 Inactive amlodipine 5 mg tablet RxNorm: 533202 1 Tablet(s) PO QD 05/01/2012 Inactive amlodipine 5 mg Tab RxNorm: 118756 1 Tablet(s) PO QD 05/01/201204/30 Inactive Celebrex 200 mg capsule RxNorm: 888446 1 Capsule(s) PO QD for j oint pain 05/01/2012 06/25/2012 Inactive Singulair 10 mg tablet RxNorm: 257020 1 Tablet(s) PO QD 05/01/2012 Inactive alprazolam 0.5 mg tablet RxNorm: 326783 1 Tablet(s) PO BID 05/01/2005/30/2012 Inactive prn Celebrex 200 mg Cap RxNorm: 488714 1 Capsule(s) PO QD for joint radu n 05/01/2012 04/30/2012 Inactive hydrocodone-acetaminophen 10 mg-325 mg tablet RxNorm: 894837 2 1-2 Tablet(s) PO QID as needed for severe pain 04/19/2012 No Stop Date Active Lasix 40 mg tablet RxNorm: 262195 1 Tablet(s) PO RAZA ramirez take potassium supplementation with this medication 04/05/2012 06/03/2012 Inactive alprazolam 0.5 mg Tab RxNorm: 864460 1 Tablet(s) PO BID 04/05/2012 Inactive prn hydrocodone-acetaminophen 10 mg-325 mg Tab RxNorm: 5336953 1-2 Tablet(s) PO QID as needed for severe pain 03/25/2012 03/24/2012 Inactive clonidine 0.2 mg Tab RxNorm: 744455 1 Tablet(s) PO TID 03/08/2012 Inactive alprazolam 0.5 mg Tab RxNorm: 204180 1 Tablet(s) PO BID 03/08/2012 Inactive prn Soma 350 mg tablet RxNorm: 477447 1 Tablet(s) PO TID for spasm 02/0903/18/2012 Inactive clonidine 0.2 mg tablet RxNorm: 399196 1 Tablet(s) PO TID 03/08/2012 07/28/2012 Inactive Celebrex 200 mg Cap RxNorm: 380836 1 Capsule(s) PO QD for joint radu n 03/01/2012 04/29/2012 Inactive amlodipine 5 mg Tab RxNorm: 512326 1 Tablet(s) PO QD 02/26/201202/24 Inactive amlodipine 5 mg Tab RxNorm: 701471 1 Tablet(s) PO QD 02/26/201204/25 Inactive Bactroban 2 % Ointment RxNorm: 868270 Application TOP QID to sores 02/23/2012 No Stop Date Active amlodipine 2.5 mg tablet RxNorm: 952472 1 Tablet(s) PO QHS 02/20/20 12 02/25/2012 Inactive doxycycline hyclate 100 mg Cap RxNorm: 7605256 1 Capsule(s) PO BID 02/20/2012 02/29/2012 Inactive hydrocodone-acetaminophen 10 mg-325 mg Tab RxNorm: 3244450 1-2 T ablet(s) PO QID 02/08/2012 No Stop Date Active alprazolam 0.5 mg Tab RxNorm: 870274 1 Tablet(s) PO BID 02/08/2012 Inactive prn Singulair 10 mg Tab RxNorm: 686691 1 Tablet(s) PO QD 02/08/201204/30 Inactive Soma 350 mg Tab RxNorm: 515208 1 Tablet(s) PO TID for spasm 012 03/07/2012 Inactive Soma 350 mg Tab RxNorm: 364960 1 Tablet(s) PO TID for spasm 012 02/05/2012 Inactive diclofenac sodium 75 mg tablet,delayed release RxNorm: 84618 8 1 Tablet(s) PO BID for pain 02/01/2012 03/18/2012 Inactive Celebrex 200 mg Cap RxNorm: 193814 1 Capsule(s) PO QD for joint radu n 01/30/2012 02/28/2012 Inactive Lasix 40 mg Tab RxNorm: 517067 1 Tablet(s) PO QAM 01/24/2012 03/18/20 12 Inactive potassium chloride ER 20 mEq tablet,extended release(part/cr yst) RxNorm: 624300 2 Tablet(s) PO BID 01/24/2012 02/22/2012 Inactive alprazolam 0.5 mg Tab RxNorm: 243279 1 Tablet(s) PO BID 01/11/2012 Inactive prn hydrocodone-acetaminophen 10 mg-325 mg Tab RxNorm: 1948617 1-2 T ablet(s) PO QID 01/11/2012 No Stop Date Active Ambien 10 mg Tab RxNorm: 959494 1 Tablet(s) PO QHS 01/11/2012 012 Inactive Klor-Con 8 mEq Tab RxNorm: 657799 1 Tablet(s) PO BID 01/11/201201/22 Inactive diclofenac sodium 75 mg Tab, Delayed Release RxNorm: 584035 1 Tablet(s) PO BID for pain 01/10/2012 01/31/2012 Inactive Ambien 10 mg Tab RxNorm: 916439 1 Tablet(s) PO QHS 12/11/2011 012 Inactive alprazolam 0.5 mg Tab RxNorm: 863793 1 Tablet(s) PO BID 12/11/2011 Inactive prn hydrocodone 10 mg-acetaminophen 325 mg tablet RxNorm: 296287 1-2 Tablet(s) PO TID 11/28/2011 No Stop Date Active as needed for pa in - Previous quantity #240, will start dosing for #180 in April 2011 per Doctor Td. Ambien 10 mg Tab RxNorm: 207986 1 Tablet(s) PO QHS 11/09/2011 012 Inactive alprazolam 0.5 mg Tab RxNorm: 046005 1 Tablet(s) PO BID 11/09/2011 Inactive prn hydrocodone-acetaminophen 10 mg-325 mg Tab RxNorm: 7456287 1-2 T ablet(s) PO TID 11/06/2011 No Stop Date Active as needed for pain - Previous quantity #240, will start dosing for #180 in April 2011 per Doctor Td. Singulair 10 mg Tab RxNorm: 834776 1 Tablet(s) PO QD 10/13/201110/12 Inactive Singulair 10 mg Tab RxNorm: 063786 1 Tablet(s) PO QD 10/13/201102/06 Inactive hydrocodone-acetaminophen 10 mg-325 mg Tab RxNorm: 3641941 1-2 T ablet(s) PO TID 10/10/2011 10/09/2011 Inactive as needed for pain - Previous quantity #240, will start dosing for #180 in April 2011 per Doctor Td. hydrocodone-acetaminophen 10 mg-325 mg Tab RxNorm: 3661507 1-2 T ablet(s) PO TID 10/09/2011 No Stop Date Active as needed for pain - Previous quantity #240, will start dosing for #180 in April 2011 per Doctor Td. Klor-Con 8 mEq Tab RxNorm: 655182 1 Tablet(s) PO BID 10/02/201101/09 Inactive triamterene 75 mg-hydrochlorothiazide 50 mg tablet RxNorm: 3 94298 1 Tablet(s) PO QD 09/14/2011 03/06/2013 Inactive Ambien 10 mg Tab RxNorm: 656212 1 Tablet(s) PO QHS 09/14/2011 012 Inactive hydrocodone-acetaminophen 10 mg-325 mg Tab RxNorm: 3977268 1-2 T ablet(s) PO TID 09/14/2011 No Stop Date Active as needed for pain - Previous quantity #240, will start dosing for #180 in April 2011 per Doctor Td. alprazolam 0.5 mg Tab RxNorm: 446548 1 Tablet(s) PO BID 09/14/2011 Inactive prn Zithromax 500 mg Tab RxNorm: 664025 1 Tablet(s) PO QD 09/13/201109/10 Inactive prednisone 20 mg Tab RxNorm: 723512 1 Tablet(s) PO BID 08/31/2011 Inactive Ambien 10 mg Tab RxNorm: 723517 1 Tablet(s) PO QHS 08/17/2011 011 Inactive hydrocodone-acetaminophen 10 mg-325 mg Tab RxNorm: 1770287 1-2 T ablet(s) PO TID 08/17/2011 No Stop Date Active as needed for pain - Previous quantity #240, will start dosing for #180 in April 2011 per Doctor Td. clonidine 0.2 mg Tab RxNorm: 062801 1 Tablet(s) PO TID 08/17/201112/2011 Inactive Ambien 10 mg Tab RxNorm: 854706 1 Tablet(s) PO QHS 08/17/2011 019 Inactive alprazolam 0.5 mg Tab RxNorm: 601082 1 Tablet(s) PO BID 08/17/2011 Inactive prn hydrocodone-acetaminophen 10 mg-325 mg Tab RxNorm: 9235080 1-2 T ablet(s) PO TID 08/17/2011 08/16/2011 Inactive as needed for pain - Previous quantity #240, will start dosing for #180 in April 2011 per Doctor Td. Singulair 10 mg Tab RxNorm: 351741 1 Tablet(s) PO QD 08/17/201108/16 Inactive Klor-Con 8 mEq Tab RxNorm: 951344 1 Tablet(s) PO QD 08/17/20112011 Inactive alprazolam 0.5 mg Tab RxNorm: 140510 1 Tablet(s) PO BID 07/20/2011 Inactive prn Ambien 10 mg Tab RxNorm: 644752 1 Tablet(s) PO QHS 07/20/2011 012 Inactive Singulair 10 mg Tab RxNorm: 713491 1 Tablet(s) PO QD 07/20/201107/19 Inactive Premarin 1.25 mg tablet RxNorm: 574266 2 Tablet(s) PO QD 07/20/2011 0 01/21/2019 Inactive Premarin 1.25 mg tablet RxNorm: 875035 1-2 Tablet(s) PO QD 07/20/20 11 12/16/2011 Inactive Premarin 1.25 mg Tab RxNorm: 893878 1-2 Tablet(s) PO QD 07/06/2011 Inactive alprazolam 0.5 mg Tab RxNorm: 750271 1 Tablet(s) PO BID 06/22/2011 Inactive prn alprazolam 0.5 mg Tab RxNorm: 875423 1 Tablet(s) PO BID 06/22/2011 Inactive prn Premarin 1.25 mg Tab RxNorm: 880200 1 Tablet(s) PO QD m ay do 90 day fill if desired 06/22/2011 07/05/2011 Inactive hydrocodone-acetaminophen 10 mg-325 mg Tab RxNorm: 0182090 1-2 T ablet(s) PO TID 06/22/2011 No Stop Date Active as needed for pain - Previous quantity #240, will start dosing for #180 in April 2011 per Doctor Td. clonidine 0.2 mg Tab RxNorm: 535799 1 Tablet(s) PO TID 05/25/201103/2011 Inactive triamterene-hydrochlorothiazide 75 mg-50 mg Tab RxNorm: 3108 18 1 Tablet(s) PO QD 05/25/2011 09/13/2011 Inactive alprazolam 0.5 mg Tab RxNorm: 798147 1 Tablet(s) PO BID 05/25/2011 Inactive prn hydrocodone-acetaminophen 10 mg-325 mg Tab RxNorm: 4721388 1-2 T ablet(s) PO TID 05/25/2011 No Stop Date Active as needed for pain - Previous quantity #240, will start dosing for #180 in April 2011 per Doctor Td. Robaxin-750 750 mg Tab RxNorm: 624856 2 Tablet(s) PO QHS 05/22/2011 1 Inactive prn spasm hydrocodone-acetaminophen 10 mg-325 mg Tab RxNorm: 2632292 1-2 T ablet(s) PO TID 04/26/2011 No Stop Date Active as needed for pain - Previous quantity #240, will start dosing for #180 in April 2011 per Doctor Td. alprazolam 0.5 mg Tab RxNorm: 389570 1 Tablet(s) PO BID 04/25/2011 Inactive prn Klor-Con 8 mEq Tab RxNorm: 278355 1 Tablet(s) PO QD 03/30/20112010 Inactive Klor-Con 8 mEq Tab RxNorm: 136994 1 Tablet(s) PO QD 03/29/20112010 Inactive hydrocodone-acetaminophen 10 mg-325 mg Tab RxNorm: 8608967 1-2 T ablet(s) PO TID 03/20/2011 04/25/2011 Inactive as needed for pain - Previous quantity #240, will start dosing for #180 in April 2011 per Doctor Td. alprazolam 0.5 mg Tab RxNorm: 743931 1 Tablet(s) PO BID prn 011 03/30/2011 Inactive Ambien 10 mg Tab RxNorm: 040711 1 Tablet(s) PO QHS 03/01/2011 011 Inactive cyclobenzaprine 10 mg Tab RxNorm: 545340 1 Tablet(s) PO TID 011 03/18/2012 Inactive cyclobenzaprine 10 mg Tab RxNorm: 016450 1 Tablet(s) PO TID 011 01/08/2011 Inactive cyclobenzaprine 10 mg Tab RxNorm: 183921 1 Tablet(s) PO TID 011 12/20/2010 Inactive terbinafine 250 mg Tab RxNorm: 425311 1 Tablet(s) PO QD 12/12/2010 Inactive triamterene-hydrochlorothiazide 75 mg-50 mg Tab RxNorm: 3108 18 1 Tablet(s) PO QD 12/07/2010 01/12/2020 Inactive Klor-Con 8 8 mEq Tab RxNorm: 317525 1 Tablet(s) PO QD 12/07/201001/08 Inactive Premarin 1.25 mg Tab RxNorm: 987824 2 Tablet(s) PO QD 12/07/201001/08 Inactive clonidine 0.2 mg Tab RxNorm: 812879 1 Tablet(s) PO TID 12/07/2010 Inactive hydrocodone-acetaminophen 7.5 mg-650 mg Tab RxNorm: 872854 1 Ta blet(s) PO Q4H 12/05/2010 01/21/2019 Inactive hydrocodone-acetaminophen 7.5 mg-650 mg Tab RxNorm: 393437 1 Ta blet(s) PO Q4H 10/26/2010 11/14/2010 Inactive hydrocodone-acetaminophen 7.5 mg-650 mg Tab RxNorm: 846819 1 Ta blet(s) PO Q4H 10/13/2010 10/25/2010 Inactive hydrocodone-acetaminophen 7.5 mg-650 mg Tab RxNorm: 658108 1 Ta blet(s) PO Q4H 09/15/2010 09/12/2010 Inactive alprazolam 0.5 mg Tab RxNorm: 390104 1 Tablet(s) PO BID prn 011 09/12/2010 Inactive terbinafine 250 mg Tab RxNorm: 519332 1 Tablet(s) PO QD 09/05/2010 Inactive hydrocodone-acetaminophen 7.5 mg-650 mg Tab RxNorm: 524689 1 Ta blet(s) PO Q4H 08/29/2010 09/17/2010 Inactive alprazolam 0.5 mg Tab RxNorm: 368504 1 Tablet(s) PO BID prn 010 09/27/2010 Inactive alprazolam 0.5 mg Tab RxNorm: 468081 1 Tablet(s) PO BID prn 010 09/06/2010 Inactive Klor-Con 8 mEq Tab RxNorm: 328790 1 Tablet(s) PO QD 08/08/20102010 Inactive hydrocodone-acetaminophen 7.5 mg-650 mg Tab RxNorm: 508745 1 Ta blet(s) PO Q4H 08/08/2010 08/27/2010 Inactive Ambien 10 mg Tab RxNorm: 679184 1 Tablet(s) PO QHS 08/08/2010 Inactive clonidine 0.2 mg Tab RxNorm: 336510 1 Tablet(s) PO TID 08/08/2010 Inactive Premarin 1.25 mg Tab RxNorm: 862604 2 Tablet(s) PO QD 08/08/201009/12 Inactive Ambien 10 mg Tab RxNorm: 356976 1 Tablet(s) PO QHS 07/18/2010 Inactive alprazolam 0.5 mg Tab RxNorm: 155634 1 Tablet(s) PO BID prn 010 08/07/2010 Inactive hydrocodone-acetaminophen 7.5 mg-650 mg Tab RxNorm: 820222 1 Ta blet(s) PO Q4H 07/12/2010 07/31/2010 Inactive clonidine 0.2 mg Tab RxNorm: 265906 1 Tablet(s) PO TID 06/20/2010 Inactive terbinafine 250 mg Tab RxNorm: 115781 1 Tablet(s) PO QD 05/24/2010 Inactive Clonidine 0.2 mg Tab RxNorm: 967746 1 Tablet(s) PO TID 05/24/201006/2010 Inactive Ambien 10 mg Tab RxNorm: 627259 1 Tablet(s) PO QHS 05/24/2010 010 Inactive alprazolam 0.5 mg Tab RxNorm: 750084 1 Tablet(s) PO BID 05/24/2010 Inactive Klor-Con 8 mEq Tab RxNorm: 354451 1 Tablet(s) PO QD 05/24/20102009 Inactive alprazolam 0.5 mg Tab RxNorm: 792727 2 Tablet(s) PO QD prn 05/24/2007/17/2010 Inactive triamterene-hydrochlorothiazide 75 mg-50 mg Tab RxNorm: 3108 18 1 Tablet(s) PO QD 05/24/2010 11/19/2010 Inactive Ambien 10 mg Tab RxNorm: 731417 1 Tablet(s) PO QHS 05/23/2010 010 Inactive Alprazolam 0.5 mg Tab RxNorm: 428174 2 Tablet(s) PO QD prn 05/23/20 10 05/23/2010 Inactive Premarin 1.25 mg Tab RxNorm: 523231 2 Tablet(s) PO QD 05/19/201007/12 Inactive Hydrocodone-Acetaminophen 7.5 mg-650 mg Tab RxNorm: 281510 1 Ta blet(s) PO Q4H 05/19/2010 03/20/2011 Inactive Prednisone 20 mg Tab RxNorm: 954275 1 Tablet(s) PO BID 05/17/2010 Inactive Prednisone 20 mg Tab RxNorm: 546693 1 Tablet(s) PO BID 05/06/201001/2010 Inactive Premarin 1.25 mg Tab RxNorm: 949596 Tablet(s) PO 2 -W-, and 1 Hm-Sa-Jpa-Sun 05/05/2010 08/02/2010 Inactive Premarin 1.25 mg Tab RxNorm: 999313 Tablet(s) PO 2 M-W-F, and 1 Kf-Ny-Avx-Sun 05/04/2010 05/04/2010 Inactive Premarin 1.25 mg Tab RxNorm: 595218 Tablet(s) PO 2 M-W-F, and 1 Iz-Of-Nrl-Sun 05/04/2010 05/03/2010 Inactive Prednisone 20 mg Tab RxNorm: 127556 1 Tablet(s) PO BID 04/27/2010 Inactive Alprazolam 0.5 mg Tab RxNorm: 709220 2 Tablet(s) PO QD prn 04/26/20 10 05/22/2010 Inactive Clindamycin 300 mg Cap RxNorm: 640825 2 Capsule(s) PO TID 04/05/2010 04/18/2010 Inactive Terbinafine 250 mg Tab RxNorm: 482173 1 Tablet(s) PO QD 04/04/2010 Inactive Hydrocodone-Acetaminophen 7.5 mg-650 mg Tab RxNorm: 149999 1 Ta blet(s) PO Q4H 03/30/2010 04/18/2010 Inactive Avelox 400 mg Tab RxNorm: 584256 1 Tablet(s) PO QD 03/09/2010 010 Inactive Hydrocodone-Acetaminophen 7.5 mg-650 mg Tab RxNorm: 620361 1 Ta blet(s) PO Q4H 03/08/2010 03/27/2010 Inactive Alprazolam 0.5 mg Tab RxNorm: 101812 2 Tablet(s) PO QD prn 03/08/20 10 04/25/2010 Inactive Klor-Con 8 mEq Tab RxNorm: 563927 1 Tablet(s) PO QD when takes lasi x 03/07/2010 09/29/2019 Inactive Premarin 1.25 mg Tab RxNorm: 673710 1 Tablet(s) PO QD 03/03/201003/11 Inactive Alprazolam 0.5 mg Tab RxNorm: 176400 1 Tablet(s) PO BID PRN 010 No Stop Date Active triamterene-hydrochlorothiazide 75 mg-50 mg Tab RxNorm: 3108 18 1 Tablet(s) PO QD 02/09/2010 02/03/2011 Inactive Hydrocodone-Acetaminophen 10 mg-750 mg Tab RxNorm: 897278 1 Tablet(s) PO Q4H PRN 02/09/2010 03/20/2011 Inactive Clonidine 0.2 mg Tab RxNorm: 842723 1 Tablet(s) PO TID 01/13/201009/2009 Inactive Alprazolam 0.5 mg Tab RxNorm: 555416 1 Tablet(s) PO BID PRN 010 01/12/2010 Inactive Hydrocodone-Acetaminophen 10 mg-750 mg Tab RxNorm: 908851 1 Tablet(s) PO Q4H PRN 01/13/2010 01/12/2010 Inactive ANGELIQ 1 mg-0.5 mg Tab RxNorm: 9799841 1 Tablet(s) PO QD 12/27/2009 01/23/2010 Inactive Lasix 40 mg Tab RxNorm: 970037 1 Tablet(s) PO QAM 12/14/2009 06/11/20 10 Inactive Vitamin B12 1000mcg Tablet RxNorm: 1 Tablet(s) PO QD No Start Date Active cyclobenzaprine 10 mg tablet RxNorm: 491347 1 Tablet(s) PO TID as needed DO NOT USE WITH BACLOFEN No Start Date Active Vitamin D 5,000 unit Tab RxNorm: 1 Tablet(s) PO QD No Start Date Active vitamin E (dl, acetate) 400 unit Cap RxNorm: 155247 1 Capsule(s ) PO QD No Start Date Active Benadryl 25 mg Cap RxNorm: 8551225 Capsule(s) PO PRN No Start Date Inactive amitriptyline 100 mg tablet RxNorm: 941837 1 Tablet(s) PO QHS No St art Date 11/27/2016 Inactive Zithromax Z-Dustin 250 mg tablet RxNorm: 909607 Tablet(s) PO as di rected No Start Date 07/22/2013 Inactive Klor-Con 8 mEq tablet,extended release RxNorm: 591836 1 Tablet( s) PO BID No Start Date 07/28/2012 Inactive scopolamine 1.5 mg 72 hr Transderm Patch RxNorm: 755324 Application TD Q72H for motion sickness No Start Date 05/25/2013 Inactive Klonopin 1 mg tablet RxNorm: 729476 1-2 Tablet(s) PO QHS as nee ded for sleep No Start Date 06/20/2015 Inactive Klor-Con M20 mEq tablet,extended release RxNorm: 130530 2 Tablet(s) PO BID to use with lasix No Start Date 11/11/2013 Inactive Bystolic 5 mg tablet RxNorm: 962449 1 Tablet(s) PO QD No Start Date 1 Inactive Bystolic 10 mg tablet RxNorm: 294357 1 Tablet(s) PO BID No Start Da te 07/06/2015 Inactive Premarin 1.25 mg Tab RxNorm: 838395 Tablet(s) PO 2 -, and 1 -Sun No Start Date 05/03/2010 Inactive baclofen 20 mg tablet RxNorm: 744964 1 Tablet(s) PO TID as needed for muscle spasm No Start Date 07/22/2015 Inactive hydrocodone-acetaminophen 7.5 mg-650 mg Tab RxNorm: 035298 1 Tablet(s) PO Q4H as needed for pain No Start Date 03/20/2011 Inactive albuterol sulfate 1.25 mg/3 mL Neb Solution RxNorm: 313096 1 Unit Dose INH Q4H 2boxes No Start Date 09/06/2015 Inactive Butrans 20 mcg/hour Transderm Patch RxNorm: 474520 1 TD WEEKLY apply to skin weekly after removing previous. No Start Date 07/22/2013 Inactive Medrol (Dustin) 4 mg tablets in a dose pack RxNorm: 366601 Tablet(s) PO As Directed No Start Date 07/30/2016 Inactive hydrocodone-acetaminophen 10 mg-325 mg Tab RxNorm: 7383695 1-2 Tablet(s) PO TID as needed for pain No Start Date 03/19/2011 Inactive Klonopin 1 mg tablet RxNorm: 418445 1 Tablet(s) PO QHS No Start Date 02/28/2016 Inactive honey topical RxNorm: topical No Start Date 06/16/2018 Inactive Clonidine 0.2 mg Tab RxNorm: 887405 1 Tablet(s) PO TID No Start Date 01/12/2010 Inactive ketorolac 10 mg tablet RxNorm: 048090 1 Tablet(s) PO Q8H No Start D ate 03/18/2012 Inactive as needed for headache Singulair 10 mg Tab RxNorm: 046367 1 Tablet(s) PO QD No Start Date Inactive Premarin 1.25 mg Tab RxNorm: 400557 1 Tablet(s) PO QD No Start Date 1 Inactive Flonase 50 mcg/Actuation Nasal [place] RxNorm: 5769512 1 [place] BID No Start Date 03/18/2012 Inactive Terbinafine 250 mg Tab RxNorm: 782863 1 Tablet(s) PO QD No Start Da te 04/03/2010 Inactive Fexofenadine 180 mg Tab RxNorm: 8566374 1 Tablet(s) PO QD No Start Date 09/06/2015 Inactive baclofen 20 mg tablet RxNorm: 933133 1 Tablet(s) PO TID as needed N o Start Date 05/25/2014 Inactive Diovan 160 mg Tab RxNorm: 659454 1 Tablet(s) PO QD No Start Date 09/12 Inactive mupirocin 2 % topical ointment RxNorm: 445328 1 Application TOP QID No Start Date 04/25/2016 Inactive ZOFRAN ODT 4 mg Tab, Rapid Dissolve RxNorm: 679434 1 Tablet(s) PO Q4H No Start Date 03/18/2012 Inactive as needed for nausea and vomiting Alprazolam 0.5 mg Tab RxNorm: 764029 1 Tablet(s) PO BID PRN No Star t Date 01/12/2010 Inactive cyclobenzaprine 10 mg tablet RxNorm: 616839 1 Tablet(s) PO TID as needed for muscle spasm No Start Date 10/08/2017 Inactive Albuterol 0.083% Aerosol Solution RxNorm: 1 Appl ication INH Q4H Use one ampule every 4 hrs with nebulizer as needed for shortness of breath. No Start Date 10/09/2010 Inactive lorazepam 1 mg tablet RxNorm: 200746 1 1/2 Tablet(s) PO QHS No Star t Date 02/02/2016 Inactive Melatonin 3 mg Tab RxNorm: 089616 Tablet(s) PO PRN No Start Date 07/11 Inactive Medrol (Dustin) 4 mg Tabs in a Dose Pack RxNorm: 911025 Tablet(s) PO N o Start Date 11/28/2010 Inactive lorazepam 1 mg tablet RxNorm: 702480 1 Tablet(s) PO QHS as need ed for sleep No Start Date 01/30/2016 Inactive hydrocodone-acetaminophen 10 mg-325 mg Tab RxNorm: 2809425 1-2 Tablet(s) PO QID as needed for severe pain No Start Date 03/24/2012 Inactive celecoxib 200 mg capsule RxNorm: 504498 1 Capsule(s) PO BID No Star t Date 06/26/2019 Inactive amlodipine 5 mg-benazepril 20 mg capsule RxNorm: 734337 1 Capsu le(s) PO QD No Start Date 04/10/2017 Inactive Bystolic 20 mg tablet RxNorm: 288521 1/2 Tablet(s) PO QAM No Start Date 01/23/2016 Inactive Bystolic 20 mg tablet RxNorm: 359809 1 Tablet(s) PO QAM No Start Da te 04/25/2016 Inactive Ambien 10 mg Tab RxNorm: 657980 1 Tablet(s) PO QHS No Start Date 05/11 Inactive Klor-Con 8 mEq Tab RxNorm: 230582 1 Tablet(s) PO QD when takes lasix No Start Date 03/06/2010 Inactive aspirin 81 mg tablet RxNorm: 556026 1 Tablet(s) PO QD No Start Date 0 01/29/2018 Inactive hydrocodone-acetaminophen 10 mg-325 mg Tab RxNorm: 9248701 1-2 T ablet(s) PO QID No Start Date 01/10/2012 Inactive Bystolic 10 mg tablet RxNorm: 220256 1 Tablet(s) PO QAM take one daily in the morning. No Start Date 05/28/2013 Inactive nystatin 100,000 unit/mL Oral Susp RxNorm: 446978 5 Milliliter( s) PO QID No Start Date 03/18/2012 Inactive swish and spit scopolamine 1.5 mg 72 hr Transderm Patch RxNorm: 109581 1 Unit Dose TD Q72H for motion sickness No Start Date 12/23/2013 Inactive Hydrocodone-Acetaminophen 10 mg-750 mg Tab RxNorm: 866929 1 Tablet(s) PO Q4H PRN No Start Date 01/12/2010 Inactive Soma 350 mg tablet RxNorm: 562068 1 Tablet(s) PO TID as needed for spasm No Start Date 01/12/2013 Inactive baclofen 10 mg tablet RxNorm: 873570 1 Tablet(s) PO TID as needed for muscle spasm No Start Date 09/18/2019 Inactive Soma 350 mg Tab RxNorm: 977648 1 Tablet(s) PO TID for spasm No Star t Date 01/31/2012 Inactive Co Q-10 400 mg capsule RxNorm: 468755 1 Capsule(s) PO QD No Start D ate 01/21/2019 Inactive nystatin 100,000 unit/gram topical cream RxNorm: 750960 Applica tion TOP BID No Start Date 03/22/2015 Inactive Exforge 5 mg-160 mg Tab RxNorm: 492765 1 Tablet(s) PO QD No Start D ate 10/09/2010 Inactive Hydrocodone-Acetaminophen 7.5 mg-650 mg Tab RxNorm: 660682 1 Ta blet(s) PO Q4H No Start Date 03/07/2010 Inactive Robaxin-750 750 mg Tab RxNorm: 631482 1-2 Tablet(s) PO TID prn spasm No Start Date 05/21/2011 Inactive amlodipine 5 mg tablet RxNorm: 980863 1 Tablet(s) PO QHS No Start D ate 09/29/2015 Inactive oxycodone-acetaminophen 10 mg-325 mg tablet RxNorm: 2541012 1-2 Tablet(s) PO Q6H No Start Date 06/16/2018 Inactive Triamterene-Hydrochlorothiazide 75 mg-50 mg Tab RxNorm: 3108 18 1 Tablet(s) PO QD No Start Date 02/08/2010 Inactive Alprazolam 0.5 mg Tab RxNorm: 160181 2 Tablet(s) PO QD prn No Start Date 03/07/2010 Inactive Bystolic 20 mg tablet RxNorm: 211260 1 Tablet(s) PO QAM No Start Da te 08/17/2015 Inactive ketorolac 10 mg tablet RxNorm: 444442 1 Tablet(s) PO QID prn he adache No Start Date 07/17/2012 Inactive acyclovir 800 mg Tab RxNorm: 998637 1 Tablet(s) PO BID No Start Date 03/18/2012 Inactive duloxetine 60 mg capsule,delayed release RxNorm: 173480 1 Capsu le(s) PO QD No Start Date 09/29/2015 Inactive Norvasc 5 mg tablet RxNorm: 350968 1 Tablet(s) PO QHS No Start Date 1 10/18/2014 Inactive promethazine 25 mg tablet RxNorm: 688034 1 Tablet(s) PO Q8H use sparingly No Start Date 07/22/2013 Inactive alprazolam 0.5 mg tablet RxNorm: 785349 3 Tablet(s) PO QHS No Start Date 06/06/2015 Inactive Lunesta 3 mg tablet RxNorm: 548844 1 Tablet(s) PO QHS No Start Date 0 09/20/2017 Inactive hydrocodone-acetaminophen 10 mg-325 mg Tab RxNorm: 4560925 1-2 Tablet(s) PO TID as needed for pain No Start Date 12/10/2011 Inactive Coricidin HBP Cough & Cold 4 mg-30 mg Tab RxNorm: 3398319 Tablet (s) PO PRN No Start Date 10/09/2010 Inactive Bactroban 2 % Ointment RxNorm: 367556 Application TOP QID to so res No Start Date 02/22/2012 Inactive Flonase 50 mcg/actuation Nasal [place] RxNorm: 662940 2 [place] QHS No Start Date 03/03/2014 Inactive Medication Administered No Medication Administered data Immunizations Vaccine Codes Date Status Tetanus, Diptheria, Pertussis CVX: 115 02/27/2014 Results Observation Observation Code Item Item Code Result Date S [facility] Location COMPREHENSIVE METABOLIC 05569 AST 15 U/L 2019 Unknown COMPREHENSIVE METABOLIC 69132 ALT 13 U/L 2019 Unknown COMPREHENSIVE METABOLIC 08458 BUN 12 mg/dL 2019 Unknown COMPREHENSIVE METABOLIC 02524 ALBUMIN 3.9 g/dL 2019 Unknown COMPREHENSIVE METABOLIC 51468 CHLORIDE 97 mmol/L 2019 Unknown COMPREHENSIVE METABOLIC 54981 Bili Total 0.4 mg/dL 09/29 Unknown COMPREHENSIVE METABOLIC 82839 ALK PHOS 130 U/L 2019 Unknown COMPREHENSIVE METABOLIC 14631 SODIUM 136 mmol/L 09/29 Unknown COMPREHENSIVE METABOLIC 12943 CREATININE 0.92 mg/dL 09/11 Unknown COMPREHENSIVE METABOLIC 33004 CALCIUM 9.1 mg/dL 2019 Unknown COMPREHENSIVE METABOLIC 02784 POTASSIUM 4.4 mmol/L 09/29 Unknown COMPREHENSIVE METABOLIC 28454 Total Protein 6.2 g/dL Unknown COMPREHENSIVE METABOLIC 69766 Glucose 391 mg/dL 2019 Unknown COMPREHENSIVE METABOLIC 93146 Bicarbonate 30 mmol/L 09/11 Unknown COMPREHENSIVE METABOLIC 09429 AGAP 9 mmol/L 2019 Unknown MEAN GLUC 3626309 Calc Mean Gluc 332 mg/dL 09/29/2019 Unkn own COMPLETE BLOOD COUNT [id number] WBC 7.0 10e9/L 09/29/19 Unknown COMPLETE BLOOD COUNT 1019640 RBC 4.69 10e12/L 2019 Unknown COMPLETE BLOOD COUNT [id number] HEMOGLOBIN 14.6 g/dL 09/29/19 Unknown COMPLETE BLOOD COUNT [id number] HEMATOCRIT 45.2 % 09/29/19 Unknown COMPLETE BLOOD COUNT [id number] MCV 96.4 fL 0 Unknown COMPLETE BLOOD COUNT [id number] MCH 31.1 pg 0 Unknown COMPLETE BLOOD COUNT 8015873 MCHC 32.3 g/dL 0 Unknown COMPLETE BLOOD COUNT [id number] PLATELET COUNT 209 10e9/L Unknown COMPLETE BLOOD COUNT 9178541 Mean Plt Volume 9.8 fL Unknown COMPLETE BLOOD COUNT [id number] Neut Auto 48.1 % 0 Unknown COMPLETE BLOOD COUNT 4688862 Lymph Auto 36.5 % 09/29/19 Unknown COMPLETE BLOOD COUNT 1937110 [place] Auto 8.6 % 0 Unknown COMPLETE BLOOD COUNT 9131036 RDW 13.4 % 0 Unknown COMPLETE BLOOD COUNT 5959981 Eos Auto 6.5 % 0 Unknown COMPLETE BLOOD COUNT 7110015 Baso Auto 0.3 % 0 Unknown COMPLETE BLOOD COUNT 3274686 Neutrophil Abs 3.37 10e9/L Unknown COMPLETE BLOOD COUNT [id number] Lymphocyte Abs 2.56 10e9/L Unknown COMPLETE BLOOD COUNT [id number] Monocyte Abs 0.60 10e9/L 09/11 Unknown COMPLETE BLOOD COUNT [id number] Eosinophil Abs 0.46 10e9/L Unknown COMPLETE BLOOD COUNT 8429897 RDW-SD 45.9 fL 0 Unknown COMPLETE BLOOD COUNT 1018916 Basophil Abs 0.02 10e9/L 09/11 Unknown LIPID GROUP 52627 Cholesterol 248 mg/dL 09/29/2019 Unkno wn LIPID GROUP 04613 Triglyceride 898 mg/dL 09/29/2019 Unkn own LIPID GROUP 03550 HDL CHOLESTEROL 41 mg/dL 09/29/2019 U nknown LIPID GROUP 97789 Chol/HDL Ratio 6.05 ratio 09/29/2019 U nknown LIPID GROUP 12880 NON-HDL Chol 207 mg/dL 09/29/2019 Unkn own LIPID GROUP 11347 LDL Cholesterol N/A Trig >400 020 Unknown GLYCOSYLATED HEMOGLOBIN TEST 33867 Hgb A1c 14633-2 13.2 % 0 09/29/2019 Unknown FREE T4 15774 T4 Free 0.75 ng/dL 09/29/2019 Unknown GFR CALC 1441182 GFR Non Afr Amr >60 mL/min 09/29/2019 Un known GFR CALC 2007311 GFR Afr Amr >60 mL/min 09/29/2019 Unknow n THYROID STIMULATING HORMONE 23074 TSH 4.245 uIU/mL 09/29/2019 Unknown COMPLETE BLOOD COUNT 0359394 WBC 10.7 10e9/L 018 Unknown COMPLETE BLOOD COUNT 0301217 RBC 4.59 10e12/L 2017 Unknown COMPLETE BLOOD COUNT 9371696 HEMOGLOBIN 14.8 g/dL 12/11/19 18 Unknown COMPLETE BLOOD COUNT 8388262 HEMATOCRIT 44.9 % 12/11/19 18 Unknown COMPLETE BLOOD COUNT 0828838 MCV 97.8 fL 8 Unknown COMPLETE BLOOD COUNT 2503421 MCH 32.2 pg 8 Unknown COMPLETE BLOOD COUNT 8735346 MCHC 33.0 g/dL 8 Unknown COMPLETE BLOOD COUNT 0246641 PLATELET COUNT 261 10e9/L 10/2017 Unknown COMPLETE BLOOD COUNT 9462650 Mean Plt Volume 9.5 fL 10/2017 Unknown COMPLETE BLOOD COUNT 3965133 Neut Auto 59.9 % 8 Unknown COMPLETE BLOOD COUNT 9011310 Lymph Auto 27.4 % 12/11/19 18 Unknown COMPLETE BLOOD COUNT 8157685 [place] Auto 8.2 % 8 Unknown COMPLETE BLOOD COUNT 1643083 RDW 13.3 % 8 Unknown COMPLETE BLOOD COUNT 6042950 Eos Auto 4.1 % 8 Unknown COMPLETE BLOOD COUNT 9674043 Baso Auto 0.4 % 8 Unknown COMPLETE BLOOD COUNT 9970918 Neutrophil Abs 6.41 10e9/L Unknown COMPLETE BLOOD COUNT 3668990 Lymphocyte Abs 2.93 10e9/L Unknown COMPLETE BLOOD COUNT [id number] Monocyte Abs 0.88 10e9/L 10/2017 Unknown COMPLETE BLOOD COUNT [id number] Eosinophil Abs 0.44 10e9/L Unknown COMPLETE BLOOD COUNT [id number] RDW-SD 46.2 fL 8 Unknown COMPLETE BLOOD COUNT [id number] Basophil Abs 0.04 10e9/L 10/2017 Unknown THYROID STIMULATING HORMONE 28417 TSH 4.015 uIU/mL 12/10/2017 Unknown COMPREHENSIVE METABOLIC 52445 AST 25 U/L 2017 Unknown COMPREHENSIVE METABOLIC 48814 ALT 17 U/L 2017 Unknown COMPREHENSIVE METABOLIC 38149 BUN 19 mg/dL 2017 Unknown COMPREHENSIVE METABOLIC 24515 ALBUMIN 4.0 g/dL 2017 Unknown COMPREHENSIVE METABOLIC 22590 CHLORIDE 91 mmol/L 2017 Unknown COMPREHENSIVE METABOLIC 90893 Bili Total 0.5 mg/dL 12/10 Unknown COMPREHENSIVE METABOLIC 41248 ALK PHOS 75 U/L 2017 Unknown COMPREHENSIVE METABOLIC 21383 SODIUM 136 mmol/L 12/10 Unknown COMPREHENSIVE METABOLIC 17537 CREATININE 1.05 mg/dL 10/2017 Unknown COMPREHENSIVE METABOLIC 50460 CALCIUM 8.9 mg/dL 2017 Unknown COMPREHENSIVE METABOLIC 43040 POTASSIUM 3.4 mmol/L 12/10 Unknown COMPREHENSIVE METABOLIC 17158 Total Protein 6.5 g/dL Unknown COMPREHENSIVE METABOLIC 80275 Glucose 138 mg/dL 2017 Unknown COMPREHENSIVE METABOLIC 02012 Bicarbonate 35 mmol/L 10/2017 Unknown COMPREHENSIVE METABOLIC 77115 AGAP 10 mmol/L 2017 Unknown MEAN GLUC 3455837 Calc Mean Gluc 171 mg/dL 12/10/2017 Unkn own LIPID GROUP 13282 Cholesterol 204 mg/dL 12/10/2017 Unkno wn LIPID GROUP 31249 Triglyceride 411 mg/dL 12/10/2017 Unkn own LIPID GROUP 97668 HDL CHOLESTEROL 50 mg/dL 12/10/2017 U nknown LIPID GROUP 66393 Chol/HDL Ratio 4.08 ratio 12/10/2017 U nknown LIPID GROUP 67194 NON-HDL Chol 154 mg/dL 12/10/2017 Unkn own LIPID GROUP 23754 LDL Cholesterol N/A Trig >400 018 Unknown GLYCOSYLATED HEMOGLOBIN TEST 88739 Hgb A1c 56325-4 7.6 % 0 12/10/2017 Unknown FREE T4 59819 T4 Free 1.40 ng/dL 12/10/2017 Unknown GFR CALC 0380700 GFR Non Afr Amr 55 mL/min 12/10/2017 Unk nown GFR CALC 4795828 GFR Afr Amr >60 mL/min 12/10/2017 Unknow n GFR CALC 2167272 GFR Non Afr Amr 48 mL/min 06/28/2017 Unk nown GFR CALC 8640768 GFR Afr Amr 59 mL/min 06/28/2017 Unknown COMPREHENSIVE METABOLIC 86781 AST 32 U/L 2016 Unknown COMPREHENSIVE METABOLIC 53592 ALT 22 U/L 2016 Unknown COMPREHENSIVE METABOLIC 08263 BUN 23 mg/dL 2016 Unknown COMPREHENSIVE METABOLIC 63086 ALBUMIN 4.7 g/dL 2016 Unknown COMPREHENSIVE METABOLIC 42836 CHLORIDE 89 mmol/L 2016 Unknown COMPREHENSIVE METABOLIC 42016 Bili Total 0.5 mg/dL 06/28 Unknown COMPREHENSIVE METABOLIC 67009 ALK PHOS 90 U/L 2016 Unknown COMPREHENSIVE METABOLIC 86563 SODIUM 135 mmol/L 06/28 Unknown COMPREHENSIVE METABOLIC 78043 CREATININE 1.18 mg/dL 06/10 Unknown COMPREHENSIVE METABOLIC 16122 CALCIUM 9.7 mg/dL 2016 Unknown COMPREHENSIVE METABOLIC 58949 POTASSIUM 3.5 mmol/L 06/28 Unknown COMPREHENSIVE METABOLIC 42725 Total Protein 7.7 g/dL Unknown COMPREHENSIVE METABOLIC 23907 Glucose 129 mg/dL 2016 Unknown COMPREHENSIVE METABOLIC 12632 Bicarbonate 34 mmol/L 06/10 Unknown COMPREHENSIVE METABOLIC 41398 AGAP 12 mmol/L 2016 Unknown LIPID GROUP 39721 HDL TEST 64 MG/DL 08/27/2014 Unknown LIPID GROUP 57433 TRIG 222 MG/DL 08/27/2014 Unknown LIPID GROUP 23370 TEST LDL 209 MG/DL 08/27/2014 Unknown LIPID GROUP 18719 CHOL 317 MG/DL 08/27/2014 Unknown LIPID GROUP 75608 RCHOL/HDL 4.95 RATIO 08/27/2014 Unknow n LIPID GROUP 82557 NON-HDL CH 253 MG/DL 08/27/2014 Unknow n GFR CALC 1061314 GFR AA >60 ML/MIN 08/27/2014 Unknown GFR CALC 4854838 GFR NON-AA >60 ML/MIN 08/27/2014 Unknown COMPLETE BLOOD COUNT 0557115 WBC 7.0 10e9/L 08/27/20 14 Unknown COMPLETE BLOOD COUNT 3912007 RBC 4.98 10e12/L 2013 Unknown COMPLETE BLOOD COUNT 9168577 HGB 15.6 g/dL 4 Unknown COMPLETE BLOOD COUNT 8469381 HCT DET 46.5 % 4 Unknown COMPLETE BLOOD COUNT 4910666 MCV 93.4 fL 4 Unknown COMPLETE BLOOD COUNT 9847285 MCH 31.3 pg 4 Unknown COMPLETE BLOOD COUNT 9577531 MCHC 33.5 g/dL 4 Unknown COMPLETE BLOOD COUNT 3493494 PLT 309 10e9/L 08/27/20 14 Unknown COMPLETE BLOOD COUNT 1303926 MPV 9.6 fL 4 Unknown COMPLETE BLOOD COUNT 1990192 CADEN % 57.2 % 4 Unknown COMPLETE BLOOD COUNT 2447084 LY % 33.2 % 4 Unknown COMPLETE BLOOD COUNT 3847699 MON % 7.3 % 4 Unknown COMPLETE BLOOD COUNT 3435594 EOS % 2.0 % 4 Unknown COMPLETE BLOOD COUNT 2837049 BASO % 0.3 % 4 Unknown COMPLETE BLOOD COUNT 8496685 RDW 13.7 % 4 Unknown COMPLETE BLOOD COUNT 8607519 ABS CADEN 4.00 10e9/L 014 Unknown COMPLETE BLOOD COUNT 7807829 ABS LYMPH 2.32 10e9/L 014 Unknown COMPLETE BLOOD COUNT 7133576 ABS MONO 0.51 10e9/L 014 Unknown COMPLETE BLOOD COUNT 8580768 ABS EOS 0.14 10e9/L 014 Unknown COMPLETE BLOOD COUNT [id number] ABS BASO 0.02 10e9/L 014 Unknown COMPLETE BLOOD COUNT 7967023 RDW-SD 45.1 fL 4 Unknown COMPREHENSIVE METABOLIC 54684 AST 13 U/L 2013 Unknown COMPREHENSIVE METABOLIC 42774 ALT 11 IU/L 2013 Unknown COMPREHENSIVE METABOLIC 49911 BUN 23 MG/DL 2013 Unknown COMPREHENSIVE METABOLIC 65638 ALBUMIN 4.4 GM/DL 2013 Unknown COMPREHENSIVE METABOLIC 72521 CHLORIDE 99 MMOL/L 2013 Unknown COMPREHENSIVE METABOLIC 61357 BILI TOT 0.5 MG/DL 2013 Unknown COMPREHENSIVE METABOLIC 66558 ALK PHOS 56 U/L 2013 Unknown COMPREHENSIVE METABOLIC 67876 SODIUM 138 MMOL/L 08/27 Unknown COMPREHENSIVE METABOLIC 62973 CREATININE 0.95 MG/DL 08/10 Unknown COMPREHENSIVE METABOLIC 17363 CALCIUM 9.8 MG/DL 2013 Unknown COMPREHENSIVE METABOLIC 81367 POTASSIUM 3.5 MMOL/L 08/27 Unknown COMPREHENSIVE METABOLIC 80045 PROT TOT 6.8 GM/DL 2013 Unknown COMPREHENSIVE METABOLIC 41033 Glucose 90 MG/DL 2013 Unknown COMPREHENSIVE METABOLIC 44466 BICARB 34 MMOL/L 2013 Unknown COMPREHENSIVE METABOLIC 06251 ANION GAP 5 MEQ/L 2013 Unknown LIPASE 59217 LIPASE 11 IU/L 07/21/2014 Unknown AMYLASE 59988 AMYLASE 39 IU/L 07/21/2014 Unknown HEMOGLOBIN A1C (GLYCOSYLATED) 4550125 A1C [facility] 81345-3 6.2 % 03/05/2013 Unknown THYROID STIMULATING HORMONE 11803 TSH 6.986 uIU/ML 03/05/2013 Unknown COMPLETE BLOOD COUNT 8700331 WBC 12.7 10e9/L 013 Unknown COMPLETE BLOOD COUNT 7420094 RBC 4.53 10e12/L 2012 Unknown COMPLETE BLOOD COUNT 4430846 HGB 14.7 g/dL 3 Unknown COMPLETE BLOOD COUNT 6656505 HCT DET 43.1 % 3 Unknown COMPLETE BLOOD COUNT 9724496 MCV 95.1 fL 3 Unknown COMPLETE BLOOD COUNT 7165044 MCH 32.5 pg 3 Unknown COMPLETE BLOOD COUNT 5805761 MCHC 34.1 g/dL 3 Unknown COMPLETE BLOOD COUNT 2368315 PLT 346 10e9/L 03/05/20 13 Unknown COMPLETE BLOOD COUNT 9633690 MPV 9.5 fL 3 Unknown COMPLETE BLOOD COUNT 6613247 CADEN % 67.6 % 3 Unknown COMPLETE BLOOD COUNT 9942780 LY % 22.1 % 3 Unknown COMPLETE BLOOD COUNT 7760420 MON % 6.6 % 3 Unknown COMPLETE BLOOD COUNT 2648724 EOS % 3.3 % 3 Unknown COMPLETE BLOOD COUNT 3824992 BASO % 0.4 % 3 Unknown COMPLETE BLOOD COUNT 3761403 RDW 14.0 % 3 Unknown COMPLETE BLOOD COUNT 7089442 ABS CADEN 8.59 10e9/L 013 Unknown COMPLETE BLOOD COUNT 4770507 ABS LYMPH 2.81 10e9/L 013 Unknown COMPLETE BLOOD COUNT [id number] ABS MONO 0.84 10e9/L 013 Unknown COMPLETE BLOOD COUNT [id number] ABS EOS 0.42 10e9/L 013 Unknown COMPLETE BLOOD COUNT 2196190 ABS BASO 0.05 10e9/L 013 Unknown COMPLETE BLOOD COUNT 2248926 RDW-SD 46.0 fL 3 Unknown FREE T4 80357 FREE T4 1.14 NG/DL 03/05/2013 Unknown COMPREHENSIVE METABOLIC 21478 AST 17 U/L 2012 Unknown COMPREHENSIVE METABOLIC 35962 ALT 12 IU/L 2012 Unknown COMPREHENSIVE METABOLIC 29642 BUN 24 MG/DL 2012 Unknown COMPREHENSIVE METABOLIC 34922 ALBUMIN 4.2 GM/DL 2012 Unknown COMPREHENSIVE METABOLIC 65310 CHLORIDE 93 MMOL/L 2012 Unknown COMPREHENSIVE METABOLIC 93021 BILI TOT 0.5 MG/DL 2012 Unknown COMPREHENSIVE METABOLIC 43334 ALK PHOS 75 U/L 2012 Unknown COMPREHENSIVE METABOLIC 73583 SODIUM 141 MMOL/L 03/05 Unknown COMPREHENSIVE METABOLIC 77907 CREATININE 1.36 MG/DL 02/09 Unknown COMPREHENSIVE METABOLIC 99148 CALCIUM 9.2 MG/DL 2012 Unknown COMPREHENSIVE METABOLIC 18947 POTASSIUM 3.1 MMOL/L 03/05 Unknown COMPREHENSIVE METABOLIC 23066 PROT TOT 6.9 GM/DL 2012 Unknown COMPREHENSIVE METABOLIC 23927 Glucose 123 MG/DL 2012 Unknown COMPREHENSIVE METABOLIC 89631 BICARB 36 MMOL/L 2012 Unknown COMPREHENSIVE METABOLIC 33247 ANION GAP 12 MEQ/L 2012 Unknown GFR CALC 9983185 GFR AA 51.0L ML/MIN 03/05/2013 Unknow n GFR CALC 4195151 GFR NON-AA 42.0L ML/MIN 03/05/2013 Unkno wn COMPREHENSIVE METABOLIC 13285 AST 14 U/L 2012 Unknown COMPREHENSIVE METABOLIC 85593 ALT 11 IU/L 2012 Unknown COMPREHENSIVE METABOLIC 13102 BUN 16 MG/DL 2012 Unknown COMPREHENSIVE METABOLIC 59781 ALBUMIN 4.2 GM/DL 2012 Unknown COMPREHENSIVE METABOLIC 98224 CHLORIDE 98 MMOL/L 2012 Unknown COMPREHENSIVE METABOLIC 77892 BILI TOT 0.4 MG/DL 2012 Unknown COMPREHENSIVE METABOLIC 61678 ALK PHOS 77 U/L 2012 Unknown COMPREHENSIVE METABOLIC 97398 SODIUM 139 MMOL/L 09/25 Unknown COMPREHENSIVE METABOLIC 48609 CREATININE 0.86 MG/DL 09/10 Unknown COMPREHENSIVE METABOLIC 02708 CALCIUM 9.5 MG/DL 2012 Unknown COMPREHENSIVE METABOLIC 55290 POTASSIUM 3.8 MMOL/L 09/25 Unknown COMPREHENSIVE METABOLIC 12439 PROT TOT 6.8 GM/DL 2012 Unknown COMPREHENSIVE METABOLIC 31249 Glucose 91 MG/DL 2012 Unknown COMPREHENSIVE METABOLIC 14089 BICARB 32 MMOL/L 2012 Unknown COMPREHENSIVE METABOLIC 50837 ANION GAP 9 MEQ/L 2012 Unknown FREE T4 64440 FREE T4 0.98 NG/DL 09/25/2012 Unknown THYROID STIMULATING HORMONE 10950 TSH 1.736 uIU/ML 09/25/2012 Unknown C-REACTIVE PROTEIN (CRP) QUANT 32019 CRP 2.3 MG/DL 09/25/2012 Unknown COMPLETE BLOOD COUNT 1144065 WBC 11.9 10e9/L 013 Unknown COMPLETE BLOOD COUNT 4338938 RBC 4.87 10e12/L 2012 Unknown COMPLETE BLOOD COUNT 6908846 HGB 15.1 g/dL 3 Unknown COMPLETE BLOOD COUNT 2878903 HCT DET 44.8 % 3 Unknown COMPLETE BLOOD COUNT 9584919 MCV 92.0 fL 3 Unknown COMPLETE BLOOD COUNT 5411458 MCH 31.0 pg 3 Unknown COMPLETE BLOOD COUNT 3281249 MCHC 33.7 g/dL 3 Unknown COMPLETE BLOOD COUNT 4853127 PLT 343 10e9/L 09/25/19 13 Unknown COMPLETE BLOOD COUNT 5934958 MPV 9.0 fL 3 Unknown COMPLETE BLOOD COUNT 4054962 CADEN % 68.2 % 3 Unknown COMPLETE BLOOD COUNT 7494968 LY % 22.4 % 3 Unknown COMPLETE BLOOD COUNT 0684322 MON % 6.4 % 3 Unknown COMPLETE BLOOD COUNT 6469686 EOS % 2.7 % 3 Unknown COMPLETE BLOOD COUNT 1964717 BASO % 0.3 % 3 Unknown COMPLETE BLOOD COUNT 5180035 RDW 13.8 % 3 Unknown COMPLETE BLOOD COUNT 8737744 ABS CADEN 8.12 10e9/L 013 Unknown COMPLETE BLOOD COUNT 6348561 ABS LYMPH 2.67 10e9/L 013 Unknown COMPLETE BLOOD COUNT [id number] ABS MONO 0.76 10e9/L 013 Unknown COMPLETE BLOOD COUNT 3846503 ABS EOS 0.32 10e9/L 013 Unknown COMPLETE BLOOD COUNT 9851461 ABS BASO 0.04 10e9/L 013 Unknown COMPLETE BLOOD COUNT 2938297 RDW-SD 45.6 fL 3 Unknown GFR CALC 4234928 GFR AA >60 ML/MIN 09/25/2012 Unknown GFR CALC 2709530 GFR NON-AA >60 ML/MIN 09/25/2012 Unknown ERYTHROCYTE SEDIMENTATION RATE 18125 ESR 19 MM/HR 05/06/2012 Unknown VITAMIN B 12 FOLIC ACID 83551|42457 VIT B 12 922 PG/ML 04/11 Unknown VITAMIN B 12 FOLIC ACID 42677|54621 FOLIC ACID 13.6 NG/ML Unknown URIC ACID 77142 URIC ACID 7.8 MG/DL 05/06/2012 Unknown COMPLETE BLOOD COUNT 64653 WBC 11.9 10e9/L 012 Unknown COMPLETE BLOOD COUNT 68857 RBC 5.30 10e12/L 2011 Unknown COMPLETE BLOOD COUNT 89023 HGB 16.6 g/dL 2 Unknown COMPLETE BLOOD COUNT 91675 HCT DET 47.2 % 2 Unknown COMPLETE BLOOD COUNT 39690 MCV 89.1 fL 2 Unknown COMPLETE BLOOD COUNT 97918 MCH 31.3 pg 2 Unknown COMPLETE BLOOD COUNT 94000 MCHC 35.2 g/dL 2 Unknown COMPLETE BLOOD COUNT 26628 PLT 362 10e9/L 05/06/20 12 Unknown COMPLETE BLOOD COUNT 31456 MPV 9.4 fL 2 Unknown COMPLETE BLOOD COUNT 28690 CADEN % 68.2 % 2 Unknown COMPLETE BLOOD COUNT 92960 LY % 22.0 % 2 Unknown COMPLETE BLOOD COUNT 73998 MON % 6.9 % 2 Unknown COMPLETE BLOOD COUNT 22134 EOS % 2.6 % 2 Unknown COMPLETE BLOOD COUNT 75097 BASO % 0.3 % 2 Unknown COMPLETE BLOOD COUNT 98467 RDW 12.8 % 2 Unknown COMPLETE BLOOD COUNT 80744 ABS CADEN 8.12 10e9/L 012 Unknown COMPLETE BLOOD COUNT 04954 ABS LYMPH 2.62 10e9/L 012 Unknown COMPLETE BLOOD COUNT 22317 ABS MONO 0.82 10e9/L 012 Unknown COMPLETE BLOOD COUNT 50393 ABS EOS 0.31 10e9/L 012 Unknown COMPLETE BLOOD COUNT 57003 ABS BASO 0.04 10e9/L 012 Unknown COMPLETE BLOOD COUNT 86076 RDW-SD 41.5 fL 2 Unknown GFR CALC [id number] GFR AA >60 ML/MIN 05/06/2012 Unknown GFR CALC [id number] GFR NON-AA 58.0L ML/MIN 05/06/2012 Unkno wn FREE T4 26006 FREE T4 1.15 NG/DL 05/06/2012 Unknown THYROID STIMULATING HORMONE 00820 TSH 1.568 uIU/ML 05/06/2012 Unknown COMPREHENSIVE METABOLIC 80725 AST 20 U/L 2011 Unknown COMPREHENSIVE METABOLIC 12408 ALT 12 IU/L 2011 Unknown COMPREHENSIVE METABOLIC 49333 BUN 20 MG/DL 2011 Unknown COMPREHENSIVE METABOLIC 21483 ALBUMIN 4.5 GM/DL 2011 Unknown COMPREHENSIVE METABOLIC 04224 CHLORIDE 91 MMOL/L 2011 Unknown COMPREHENSIVE METABOLIC 44700 BILI TOT 0.4 MG/DL 2011 Unknown COMPREHENSIVE METABOLIC 33914 ALK PHOS 73 U/L 2011 Unknown COMPREHENSIVE METABOLIC 96578 SODIUM 139 MMOL/L 05/06 Unknown COMPREHENSIVE METABOLIC 99141 CREATININE 1.02 MG/DL 04/11 Unknown COMPREHENSIVE METABOLIC 70112 CALCIUM 9.7 MG/DL 2011 Unknown COMPREHENSIVE METABOLIC 85186 POTASSIUM 3.1 MMOL/L 05/06 Unknown COMPREHENSIVE METABOLIC 28922 PROT TOT 7.3 GM/DL 2011 Unknown COMPREHENSIVE METABOLIC 53419 Glucose 118 MG/DL 2011 Unknown COMPREHENSIVE METABOLIC 57952 BICARB 33 MMOL/L 2011 Unknown COMPREHENSIVE METABOLIC 60614 ANION GAP 15 MEQ/L 2011 Unknown Procedures Procedure Codes Date ROUTINE VENIPUNCTURE CPT-4: 34214 09/29/2019 URINALYSIS NONAUTO W/O SCOPE CPT-4: 47787 09/29/2019 COMPREHEN METABOLIC PANEL CPT-4: 07943 09/29/2019 LIPID PANEL CPT-4: 16348 09/29/2019 A1C HPLC CPT-4: 59576 09/29/2019 ASSAY OF FREE THYROXINE CPT-4: 21376 09/29/2019 ASSAY THYROID STIM HORMONE CPT-4: 21159 09/29/2019 COMPLETE CBC W/AUTO DIFF WBC CPT-4: 50498 09/29/2019 URINALYSIS NONAUTO W/O SCOPE CPT-4: 63495 09/30/2018 MICROALBUMIN QUANTITATIVE CPT-4: 72424 09/30/2018 CEFTRIAXONE SODIUM INJECTION CPT-4: J0696 06/19/2018 THER/PROPH/DIAG INJ SC/IM CPT-4: 95825 06/19/2018 CEFTRIAXONE SODIUM INJECTION CPT-4: J0696 06/17/2018 THER/PROPH/DIAG INJ SC/IM CPT-4: 05959 06/17/2018 THER/PROPH/DIAG INJ SC/IM CPT-4: 73712 05/16/2018 KETOROLAC TROMETHAMINE INJ CPT-4: J1885 05/16/2018 ONDANSETRON HCL INJECTION CPT-4: J2405 05/16/2018 THER/PROPH/DIAG INJ SC/IM CPT-4: 07197 05/16/2018 ROUTINE VENIPUNCTURE CPT-4: 63218 03/20/2018 COMPREHEN METABOLIC PANEL CPT-4: 79746 03/20/2018 DEXAMETHASONE SODIUM PHOS CPT-4: J1100 02/11/2018 THER/PROPH/DIAG INJ SC/IM CPT-4: 97068 02/11/2018 TRIAMCINOLONE ACET INJ NOS CPT-4: J3301 02/11/2018 CEFTRIAXONE SODIUM INJECTION CPT-4: J0696 02/01/2018 THER/PROPH/DIAG INJ SC/IM CPT-4: 80643 02/01/2018 CEFTRIAXONE SODIUM INJECTION CPT-4: J0696 01/30/2018 THER/PROPH/DIAG INJ SC/IM CPT-4: 44256 01/30/2018 ROUTINE VENIPUNCTURE CPT-4: 87564 12/10/2017 ASSAY OF FREE THYROXINE CPT-4: 86896 12/10/2017 ASSAY THYROID STIM HORMONE CPT-4: 28649 12/10/2017 COMPREHEN METABOLIC PANEL CPT-4: 77879 12/10/2017 COMPLETE CBC W/AUTO DIFF WBC CPT-4: 57902 12/10/2017 LIPID PANEL CPT-4: 53981 12/10/2017 A1C HPLC CPT-4: 91825 12/10/2017 CEFTRIAXONE SODIUM INJECTION CPT-4: J0696 12/10/2017 THER/PROPH/DIAG INJ SC/IM CPT-4: 13300 12/10/2017 CEFTRIAXONE SODIUM INJECTION CPT-4: J0696 12/07/2017 THER/PROPH/DIAG INJ SC/IM CPT-4: 91130 12/07/2017 DEXAMETHASONE SODIUM PHOS CPT-4: J1100 12/07/2017 THER/PROPH/DIAG INJ SC/IM CPT-4: 49141 12/07/2017 CEFTRIAXONE SODIUM INJECTION CPT-4: J0696 10/08/2017 THER/PROPH/DIAG INJ SC/IM CPT-4: 72332 10/08/2017 CEFTRIAXONE SODIUM INJECTION CPT-4: J0696 09/21/2017 THER/PROPH/DIAG INJ SC/IM CPT-4: 82499 09/21/2017 CEFTRIAXONE SODIUM INJECTION CPT-4: J0696 09/20/2017 THER/PROPH/DIAG INJ SC/IM CPT-4: 82792 09/20/2017 REMOVAL OF NAIL PLATE CPT-4: 97892 08/29/2017 THER/PROPH/DIAG INJ SC/IM CPT-4: 09893 08/29/2017 TRIAMCINOLONE ACET INJ NOS CPT-4: J3301 08/29/2017 CEFTRIAXONE SODIUM INJECTION CPT-4: J0696 08/29/2017 THER/PROPH/DIAG INJ SC/IM CPT-4: 02300 08/29/2017 DESTRUCT PREMALG LESION (Cryosurgery) CPT-4: 79976 ROUTINE VENIPUNCTURE CPT-4: 90162 06/27/2017 ASSAY OF FREE THYROXINE CPT-4: 00115 06/27/2017 ASSAY THYROID STIM HORMONE CPT-4: 34073 06/27/2017 COMPREHEN METABOLIC PANEL CPT-4: 98811 06/27/2017 COMPLETE CBC W/AUTO DIFF WBC CPT-4: 80997 06/27/2017 EXC TR-EXT B9+REECE 0.5 CM< CPT-4: 13790 01/24/2017 THER/PROPH/DIAG INJ SC/IM CPT-4: 46830 08/02/2016 DEXAMETHASONE SODIUM PHOS CPT-4: J1100 08/02/2016 DESTRUCT PREMALG LESION (Cryosurgery) CPT-4: 45017 EXC TR-EXT B9+REECE 0.5 CM< CPT-4: 05822 08/01/2016 AEROBIC WOUND CULTURE & STN CPT-4: 48213 07/06/2016 CEFTRIAXONE SODIUM INJECTION CPT-4: J0696 05/25/2016 THER/PROPH/DIAG INJ SC/IM CPT-4: 44482 05/25/2016 THER/PROPH/DIAG INJ SC/IM CPT-4: 89105 04/26/2016 DEXAMETHASONE SODIUM PHOS CPT-4: J1100 04/26/2016 CEFTRIAXONE SODIUM INJECTION CPT-4: J0696 04/26/2016 THER/PROPH/DIAG INJ SC/IM CPT-4: 96657 04/26/2016 THER/PROPH/DIAG INJ SC/IM CPT-4: 98315 02/09/2016 TRIAMCINOLONE ACET INJ NOS CPT-4: J3301 02/09/2016 URINALYSIS NONAUTO W/O SCOPE CPT-4: 48821 01/24/2016 URINE CULTURE/ COLONY COUNT CPT-4: 37818 01/24/2016 THER/PROPH/DIAG INJ SC/IM CPT-4: 12120 12/08/2015 TRIAMCINOLONE ACET INJ NOS CPT-4: J3301 12/08/2015 THER/PROPH/DIAG INJ SC/IM CPT-4: 85857 10/07/2015 TRIAMCINOLONE ACET INJ NOS CPT-4: J3301 10/07/2015 DESTRUCT PREMALG LESION (Cryosurgery) CPT-4: 85342 THER/PROPH/DIAG INJ SC/IM CPT-4: 96139 03/16/2015 METHYLPREDNISOLONE 40 MG INJ CPT-4: J1030 03/16/2015 DESTRUCT PREMALG LESION (Cryosurgery) CPT-4: 66537 THER/PROPH/DIAG INJ SC/IM CPT-4: 31725 09/11/2014 METHYLPREDNISOLONE 40 MG INJ CPT-4: J1030 09/11/2014 TRIAMCINOLONE ACET INJ NOS CPT-4: J3301 09/11/2014 CEFTRIAXONE SODIUM INJECTION CPT-4: J0696 09/11/2014 THER/PROPH/DIAG INJ SC/IM CPT-4: 24955 09/11/2014 ROUTINE VENIPUNCTURE CPT-4: 41278 08/27/2014 COMPREHEN METABOLIC PANEL CPT-4: 68965 08/27/2014 COMPLETE CBC W/AUTO DIFF WBC CPT-4: 62787 08/27/2014 LIPID PANEL CPT-4: 68962 08/27/2014 ROUTINE VENIPUNCTURE CPT-4: 58686 07/21/2014 ASSAY OF AMYLASE CPT-4: 92344 07/21/2014 ASSAY OF LIPASE CPT-4: 96493 07/21/2014 THER/PROPH/DIAG INJ SC/IM CPT-4: 79885 07/15/2014 TRIAMCINOLONE ACET INJ NOS CPT-4: J3301 07/15/2014 ROUTINE VENIPUNCTURE CPT-4: 85130 05/14/2014 ASSAY OF FREE THYROXINE CPT-4: 72771 05/14/2014 ASSAY THYROID STIM HORMONE CPT-4: 45798 05/14/2014 COMPREHEN METABOLIC PANEL CPT-4: 64006 05/14/2014 COMPLETE CBC W/AUTO DIFF WBC CPT-4: 69534 05/14/2014 LIPID PANEL CPT-4: 45368 05/14/2014 CEFTRIAXONE SODIUM INJECTION CPT-4: J0696 04/21/2014 THER/PROPH/DIAG INJ SC/IM CPT-4: 75383 04/21/2014 THER/PROPH/DIAG INJ SC/IM CPT-4: 30084 04/21/2014 TRIAMCINOLONE ACET INJ NOS CPT-4: J3301 04/21/2014 THER/PROPH/DIAG INJ SC/IM CPT-4: 11582 03/04/2014 METHYLPREDNISOLONE 40 MG INJ CPT-4: J1030 03/04/2014 TRIAMCINOLONE ACET INJ NOS CPT-4: J3301 03/04/2014 CEFTRIAXONE SODIUM INJECTION CPT-4: J0696 03/04/2014 THER/PROPH/DIAG INJ SC/IM CPT-4: 35510 03/04/2014 TDAP VACCINE 7 YRS/> IM CPT-4: 14206 02/27/2014 IMMUNIZATION ADMIN CPT-4: 30491 02/27/2014 DESTRUCT PREMALG LESION (Cryosurgery) CPT-4: 66676 DESTRUCT PREMALG LES 2-14 CPT-4: 42939 01/13/2014 THER/PROPH/DIAG INJ SC/IM CPT-4: 44845 10/21/2013 METHYLPREDNISOLONE 40 MG INJ CPT-4: J1030 10/21/2013 TRIAMCINOLONE ACET INJ NOS CPT-4: J3301 10/21/2013 CEFTRIAXONE SODIUM INJECTION CPT-4: J0696 08/27/2013 THER/PROPH/DIAG INJ SC/IM CPT-4: 97976 08/27/2013 THER/PROPH/DIAG INJ SC/IM CPT-4: 87101 08/27/2013 METHYLPREDNISOLONE 40 MG INJ CPT-4: J1030 08/27/2013 TRIAMCINOLONE ACET INJ NOS CPT-4: J3301 08/27/2013 THER/PROPH/DIAG INJ SC/IM CPT-4: 06998 06/23/2013 METHYLPREDNISOLONE 40 MG INJ CPT-4: J1030 06/23/2013 TRIAMCINOLONE ACET INJ NOS CPT-4: J3301 06/23/2013 THER/PROPH/DIAG INJ SC/IM CPT-4: 75035 05/26/2013 METHYLPREDNISOLONE 40 MG INJ CPT-4: J1030 05/26/2013 TRIAMCINOLONE ACET INJ NOS CPT-4: J3301 05/26/2013 ROUTINE VENIPUNCTURE CPT-4: 69633 03/05/2013 ASSAY OF FREE THYROXINE CPT-4: 61046 03/05/2013 ASSAY THYROID STIM HORMONE CPT-4: 78441 03/05/2013 COMPREHEN METABOLIC PANEL CPT-4: 49752 03/05/2013 COMPLETE CBC W/AUTO DIFF WBC CPT-4: 70708 03/05/2013 A1C GLYCOSYLATED HEMOGLOBIN TEST CPT-4: 91483 013 DRAIN/INJECT JOINT/BURSA CPT-4: 51140 12/04/2012 METHYLPREDNISOLONE 40 MG INJ CPT-4: J1030 12/04/2012 TRIAMCINOLONE ACET INJ NOS CPT-4: J3301 12/04/2012 CEFTRIAXONE SODIUM INJECTION CPT-4: J0696 11/21/2012 THER/PROPH/DIAG INJ SC/IM CPT-4: 80054 11/21/2012 THER/PROPH/DIAG INJ SC/IM CPT-4: 68517 10/14/2012 METHYLPREDNISOLONE 40 MG INJ CPT-4: J1030 10/14/2012 TRIAMCINOLONE ACET INJ NOS CPT-4: J3301 10/14/2012 URINALYSIS NONAUTO W/O SCOPE CPT-4: 28413 09/27/2012 ROUTINE VENIPUNCTURE CPT-4: 84701 09/25/2012 ASSAY OF FREE THYROXINE CPT-4: 31058 09/25/2012 ASSAY THYROID STIM HORMONE CPT-4: 24922 09/25/2012 COMPREHEN METABOLIC PANEL CPT-4: 50287 09/25/2012 COMPLETE CBC W/AUTO DIFF WBC CPT-4: 49425 09/25/2012 C-REACTIVE PROTEIN CPT-4: 97911 09/25/2012 THER/PROPH/DIAG INJ SC/IM CPT-4: 57378 08/29/2012 METHYLPREDNISOLONE 40 MG INJ CPT-4: J1030 08/29/2012 TRIAMCINOLONE ACET INJ NOS CPT-4: J3301 08/29/2012 DESTRUCT PREMALG LESION (Cryosurgery) CPT-4: 50066 THER/PROPH/DIAG INJ SC/IM CPT-4: 87917 05/06/2012 METHYLPREDNISOLONE 40 MG INJ CPT-4: J1030 05/06/2012 TRIAMCINOLONE ACET INJ NOS CPT-4: J3301 05/06/2012 VITAMIN B 12 FOLIC ACID CPT-4: 08754|81606 05/06/2012 RBC SED RATE AUTOMATED CPT-4: 23515 05/06/2012 ROUTINE VENIPUNCTURE CPT-4: 63006 05/06/2012 ASSAY OF FREE THYROXINE CPT-4: 56776 05/06/2012 ASSAY THYROID STIM HORMONE CPT-4: 79698 05/06/2012 COMPREHEN METABOLIC PANEL CPT-4: 43014 05/06/2012 COMPLETE CBC W/AUTO DIFF WBC CPT-4: 67428 05/06/2012 ASSAY OF BLOOD/URIC ACID CPT-4: 38532 05/06/2012 THER/PROPH/DIAG INJ SC/IM CPT-4: 32880 03/19/2012 KETOROLAC TROMETHAMINE INJ CPT-4: J1885 03/19/2012 KETOROLAC TROMETHAMINE INJ CPT-4: J1885 01/30/2012 THER/PROPH/DIAG INJ SC/IM CPT-4: 14617 01/30/2012 PROMETHAZINE HCL INJECTION CPT-4: J2550 01/30/2012 THER/PROPH/DIAG INJ SC/IM CPT-4: 26272 01/24/2012 METHYLPREDNISOLONE 40 MG INJ CPT-4: J1030 01/24/2012 TRIAMCINOLONE ACET INJ NOS CPT-4: J3301 01/24/2012 THER/PROPH/DIAG INJ SC/IM CPT-4: 54092 09/13/2011 KETOROLAC TROMETHAMINE INJ CPT-4: J1885 09/13/2011 THER/PROPH/DIAG INJ SC/IM CPT-4: 50376 09/13/2011 PROMETHAZINE HCL INJECTION CPT-4: J2550 09/13/2011 CEFTRIAXONE SODIUM INJECTION CPT-4: J0696 07/20/2011 THER/PROPH/DIAG INJ SC/IM CPT-4: 54287 07/20/2011 THER/PROPH/DIAG INJ SC/IM CPT-4: 34930 07/20/2011 METHYLPREDNISOLONE INJECTION CPT-4: J2930 07/20/2011 URINALYSIS NONAUTO W/O SCOPE CPT-4: 22160 05/09/2011 CEFTRIAXONE SODIUM INJECTION CPT-4: J0696 05/09/2011 THER/PROPH/DIAG INJ SC/IM CPT-4: 91763 05/09/2011 THER/PROPH/DIAG INJ SC/IM CPT-4: 15189 05/09/2011 PROMETHAZINE HCL INJECTION CPT-4: J2550 05/09/2011 HYDRATION IV INFUSION INIT CPT-4: 05691 05/09/2011 DESTRUCT PREMALG LESION (Cryosurgery) CPT-4: 52837 DESTRUCT PREMALG LES 2-14 CPT-4: 47446 07/19/2010 REMOVAL OF SKIN TAGS <W/15 CPT-4: 64537 05/30/2010 THER/PROPH/DIAG INJ SC/IM CPT-4: 87211 04/05/2010 CEFTRIAXONE SODIUM INJECTION CPT-4: J0696 04/05/2010 TRIAMCINOLONE ACET INJ NOS CPT-4: J3301 04/05/2010 METHYLPREDNISOLONE 40 MG INJ CPT-4: J1030 04/05/2010 THER/PROPH/DIAG INJ SC/IM CPT-4: 12363 04/05/2010 TRIAMCINOLONE ACET INJ NOS CPT-4: J3301 03/09/2010 METHYLPREDNISOLONE 40 MG INJ CPT-4: J1030 03/09/2010 THER/PROPH/DIAG INJ SC/IM CPT-4: 60893 03/09/2010 THER/PROPH/DIAG INJ SC/IM CPT-4: 02399 03/09/2010 CEFTRIAXONE SODIUM INJECTION CPT-4: J0696 03/09/2010 [...] 1: 132/80 Code: 8480-6 BMI: 35.8 Code: 53243-3 Heart Rate 1: 88 bpm Height: 5'4" Respiratory Rate: 20 bpm SpO2: 95% Tempera ture: 36.9 (C) / 98.5 (F) Weight: 210 lbs 05/28/2019 Blood Pressure 1: 126/82 Code: 8480-6 BMI: 35.0 Code: 78964-4 Heart Rate 1: 88 bpm Height: 5'4" [...] 1: 128/90 Code: 8480-6 BMI: 37.2 Code: 78987-0 Heart Rate 1: 84 bpm Height: 5'4" Respiratory Rate: 20 bpm SpO2: 95% Tempera ture: 36.6 (C) / 97.8 (F) Weight: 217 lbs 08/27/2018 Blood Pressure 1: 128/88 Code: 8480-6 BMI: 38.3 Code: 44446-0 Heart Rate 1: 84 bpm Height: 5'4" [...] 1: 119/72 Code: 8480-6 BMI: 37.4 Code: 64791-9 Heart Rate 1: 82 bpm Height: 5'4" Respiratory Rate: 12 bpm SpO2: 94% Tempera ture: 35.2 (C) / 95.4 (F) Weight: 218 lbs 12/18/2017 Blood Pressure 1: 128/86 Code: 8480-6 BMI: 37.8 Code: 52688-7 Heart Rate 1: 84 bpm Height: 5'4" [...] 1: 128/82 Code: 8480-6 BMI: 35.5 Code: 84843-6 Heart Rate 1: 84 bpm Height: 5'4" [...] 1: 128/82 Code: 8480-6 BMI: 30.2 Code: 96052-1 Heart Rate 1: 80 bpm Height: 5'4" [...] 1: 128/86 Code: 8480-6 BMI: 32.8 Code: 96121-4 Heart Rate 1: 66 bpm Height: 5'4" Respiratory Rate: 18 bpm Temperature: 36 .3 (C) / 97.3 (F) Weight: 191 lbs 06/23/2013 Blood Pressure 1: 132/94 Code: 8480-6 BMI: 34.0 Code: 17956-3 Heart Rate 1: 84 bpm Height: 5'4" Respiratory Rate: 20 bpm Temperature: 36 .8 (C) / 98.2 (F) Weight: 198 lbs 05/26/2013 Blood Pressure 1: 114/80 Code: 8480-6 BMI: 35.0 Code: 13907-4 Heart Rate 1: 80 bpm Height: 5'4" Respiratory Rate: 20 bpm Temperature: 36 .4 (C) / 97.6 (F) Weight: 204 lbs 04/16/2013 Blood Pressure 1: 114/82 Code: 8480-6 BMI: 36.7 Code: 11421-0 Heart Rate 1: 84 bpm Height: 5'4" Respiratory Rate: 20 bpm Temperature: 36 .7 (C) / 98.0 (F) Weight: 214 lbs 03/05/2013 Blood Pressure 1: 136/90 Code: 8480-6 BMI: 37.1 Code: 51456-4 Heart Rate 1: 84 bpm Height: 5'4" [...] 1: 168/114 Code: 8480-6 BMI: 36.2 Code: 52804-6 Heart Rate 1: 104 bpm Height: 5'4" Respiratory Rate: 20 bpm Temperature: 36 .8 (C) / 98.2 (F) Weight: 211 lbs 11/22/2012 Blood Pressure 1: 128/90 Code: 8480-6 Heart Rate 1: 88 bpm Respiratory Rate: 20 bpm SpO2: 96% Temperature: 36.8 (C) / 98.2 (F) 11/21/2012 Blood Pressure 1: 146/100 Code: 8480-6 BMI: 35.7 Code: 52266-9 Heart Rate 1: 96 bpm Height: 5'4" [...] 1: 138/100 Code: 8480-6 BMI: 35.7 Code: 46292-0 Heart Rate 1: 96 bpm Height: 5'4" Respiratory Rate: 20 bpm Temperature: 36 .8 (C) / 98.2 (F) Weight: 208 lbs 05/06/2012 Blood Pressure 1: 154/102 Code: 8480-6 BMI: 34.7 Code: 80397-8 Heart Rate 1: 116 bpm Height: 5'4" Respiratory Rate: 20 bpm Temperature: 36 .8 (C) / 98.2 (F) Weight: 202 lbs 04/03/2012 Blood Pressure 1: 134/94 Code: 8480-6 BMI: 34.8 Code: 99803-4 Heart Rate 1: 108 bpm Height: 5'4" Respiratory Rate: 20 bpm Temperature: 36 .8 (C) / 98.2 (F) Weight: 203 lbs 03/19/2012 Blood Pressure 1: 148/106 Code: 8480-6 BMI: 35.0 Code: 70465-0 Heart Rate 1: 100 bpm Height: 5'4" Respiratory Rate: 20 bpm Temperature: 36 .6 (C) / 97.9 (F) Weight: 204 lbs 02/22/2012 Blood Pressure 1: 146/94 Code: 8480-6 He art Rate 1: 88 bpm 02/21/2012 Blood Pressure 1: 172/120 Code: 8480-6 B lood Pressure 2: 152/106 Code: 8480-6 Heart Rate 1: 116 bpm 02/20/2012 Blood Pressure 1: 160/100 Code: 8480-6 BMI: 32.0 Code: 03125-4 Heart Rate 1: 84 bpm Height: 5'7" Temperature: 36.5 (C) / 97.7 (F) Weight: 204 lbs 01/30/2012 Blood Pressure 1: 152/110 Code: 8480-6 BMI: 32.0 Code: 45832-7 Heart Rate 1: 116 bpm Height: 5'7" Respiratory Rate: 20 bpm Temperature: 37 .0 (C) / 98.6 (F) Weight: 204 lbs 01/24/2012 Blood Pressure 1: 146/100 Code: 8480-6 BMI: 32.0 Code: 01936-9 Heart Rate 1: 100 bpm Height: 5'7" Respiratory Rate: 20 bpm Temperature: 36 .7 (C) / 98.0 (F) Weight: 204 lbs 01/10/2012 Blood Pressure 1: 156/94 Code: 8480-6 BMI: 32.6 Code: 42176-5 Heart Rate 1: 72 bpm Height: 5'7" Respiratory Rate: 20 bpm Temperature: 36 .8 (C) / 98.2 (F) Weight: 208 lbs 12/11/2011 Blood Pressure 1: 146/100 Code: 8480-6 Heart Rat e 1: 116 bpm Height: 5'7" Respiratory Rate: 20 bpm Temperature: 36.9 (C) / 98.4 (F) We ight: 11/09/2011 Blood Pressure 1: 148/96 Code: 8480-6 BMI: 32.1 Code: 86093-2 Heart Rate 1: 116 bpm Height: 5'7" Respiratory Rate: 20 bpm Temperature: 36 .7 (C) / 98.0 (F) Weight: 205 lbs 09/13/2011 Blood Pressure 1: 126/88 Code: 8480-6 Heart Rate 1: 88 bpm Height: 5'7" Respiratory Rate: 20 bpm Temperature: 36.9 (C) / 98.4 (F) We ight: 08/31/2011 Blood Pressure 1: 118/82 Code: 8480-6 BMI: 32.0 Code: 25385-0 Heart Rate 1: 80 bpm Height: 5'7" Temperature: 36.4 (C) / 97.6 (F) Weight: 204 lbs 07/06/2011 Blood Pressure 1: 128/86 Code: 8480-6 BMI: 30.9 Code: 11227-0 Heart Rate 1: 92 bpm Height: 5'7" Respiratory Rate: 20 bpm Temperature: 36 .9 (C) / 98.4 (F) Weight: 197 lbs 06/06/2011 Blood Pressure 1: 112/74 Code: 8480-6 BMI: 31.0 Code: 78227-7 Heart Rate 1: 72 bpm Height: 5'7" [...] 1: 128/92 Code: 8480-6 BMI: 33.6 Code: 37876-8 Heart Rate 1: 104 bpm Height: 5'4" [...] Check-up Encounters Encounter Performer Location Codes Date ([id number]) OFFICE/OUTPATIENT VISIT EST Diagnosis: Essential (primary) hypertension[ICD10: I10] Diagnosis: Type 2 diabetes mellitus with hyperglycemia[ICD10: E11.65] Diagnosis: Allergic rhinitis[ICD10: J30.9] María Elena APPIAH DO [facility] CPT-4: 96711 01/13/2020 ([id number]) OFFICE/OUTPATIENT VISIT EST Diagnosis: Type 2 diabetes mellitus with hyperglycemia[ICD10: E11.65] María Elena JUARES LucioJj [employer] [facility] CPT-4: 27444 11/20/2019 ([id number]) OFFICE/OUTPATIENT VISIT EST Diagnosis: Ingrowing nail[ICD10: L60.0] Diagnosis: Type 2 diabetes mellitus with hyperglycemia[ICD10: E11.65] Kathleen Zuniga MARÍA ELENA [employer] [facility] CPT-4: 01612 10/07/2019 ([id number]) OFFICE/OUTPATIENT VISIT EST Diagnosis: DM w/o complication type II, uncontrolled[ICD10: E11.65] Diagnosis: Hypertriglyceridemia[ICD10: E78.1] Diagnosis: Essential hypertension[ICD10: I10] María Elena JEAN Fabiola APPIAH [employer] [facility] CPT-4: 04651 09/30/2019 ([id number]) NURSE/OUTPATIENT VISIT EST Diagnosis: Essential (primary) hypertension[ICD10: I10] Diagnosis: Cervicalgia[ICD10: M54.2] Diagnosis: Hyperglycemia, unspecified[ICD10: R73.9] Diagnosis: Mixed hyperlipidemia[ICD10: E78.2] María Elena JEAN Fabiola APPIAH [employer] [facility] CPT-4: 47779 09/29/2019 ([id number]) OFFICE/OUTPATIENT VISIT EST Diagnosis: Essential (primary) hypertension[ICD10: I10] Diagnosis: Fall from bed, sequela[ICD10: W06.XXXS] María Elena REED [employer] [facility] CPT-4: 02823 05/28/2019 ([id number]) NURSE/OUTPATIENT VISIT EST Diagnosis: Essential (primary) hypertension[ICD10: I10] María Elena JUARES [employer] [facility] CPT-4: 28073 05/19/2019 ([id number]) OFFICE/OUTPATIENT VISIT EST Diagnosis: Essential (primary) hypertension[ICD10: I10] Diagnosis: Type 2 diabetes mellitus with hyperglycemia[ICD10: E11.65] Diagnosis: Intervertebral disc disorders with radiculopathy, 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] Diagnosis: Hormone replacement therapy[ICD10: Z79.890] María Elena APPIAH DO [facility] CPT-4: 17432 01/22/2019 ([id number]) OFFICE/OUTPATIENT VISIT EST Diagnosis: Essential (primary) hypertension[ICD10: I10] Diagnosis: Type 2 diabetes mellitus with hyperglycemia[ICD10: E11.65] María Elena APPIAH DO [facility] CPT-4: 15455 09/30/2018 ([id number]) OFFICE/OUTPATIENT VISIT EST Diagnosis: Pain in left elbow[ICD10: M25.522] Diagnosis: Acute stress reaction[ICD10: F43.0] Diagnosis: Primary insomnia[ICD10: F51.01] Diagnosis: Abnormal weight gain[ICD10: R63.5] María Elena APPIAH [facility] CPT-4: 76931 08/27/2018 ([id number]) OFFICE/OUTPATIENT VISIT EST Diagnosis: Acute recurrent sinusitis, unspecified[ICD10: J01.91] Diagnosis: Follicular disorder, unspecified[ICD10: L73.9] Diagnosis: Tinea corporis[ICD10: B35.4] María Elena APPIAH DO [facility] CPT-4: 53774 08/09/2018 ([id number]) OFFICE/OUTPATIENT VISIT EST Diagnosis: Tinea corporis[ICD10: B35.4] Diagnosis: Anxiety disorder, unspecified[ICD10: F41.9] Diagnosis: Menopausal and female climacteric states[ICD10: N95.1] María Elena APPIAH [facility] CPT-4: 36001 07/22/2018 ([id number]) NURSE/OUTPATIENT VISIT EST Diagnosis: Cellulitis of right toe[ICD10: L03.031] María Elena APPIAH [facility] CPT-4: 17980 06/19/2018 ([id number]) OFFICE/OUTPATIENT VISIT EST Diagnosis: Cellulitis of right toe[ICD10: L03.031] Kathleen APPIAH DO [facility] CPT-4: 65412 06/17/2018 ([id number]) OFFICE/OUTPATIENT VISIT EST Diagnosis: Migraine without aura, intractable, without status migrainosus[ICD10: G43.019] Diagnosis: Zoster without complications[ICD10: B02.9] Kathleen APPIAH DO [facility] CPT-4: 90042 05/16/2018 ([id number]) OFFICE/OUTPATIENT VISIT EST Diagnosis: Cellulitis of right lower limb[ICD10: L03.115] Kathleen APPIAH DO [facility] CPT-4: 16875 03/20/2018 ([id number]) OFFICE/OUTPATIENT VISIT EST Diagnosis: Cellulitis of right lower limb[ICD10: L03.115] Kathleen APPIAH DO [facility] CPT-4: 56075 03/18/2018 ([id number]) OFFICE/OUTPATIENT VISIT EST Diagnosis: Cellulitis of right lower limb[ICD10: L03.115] Kathleen APPIAH DO [facility] CPT-4: 86709 03/15/2018 ([id number]) OFFICE/OUTPATIENT VISIT EST Diagnosis: Acute sinusitis, unspecified[ICD10: J01.90] Kathleen APPIAH DO [facility] CPT-4: 70702 02/11/2018 ([id number]) NURSE/OUTPATIENT VISIT EST Diagnosis: Otitis media, unspecified, right ear[ICD10: H66.91] María Elena APPIAH DO [facility] CPT-4: 50177 02/01/2018 ([id number]) OFFICE/OUTPATIENT VISIT EST Diagnosis: Acute suppurative otitis media without spontaneous rupture of ear drum, left ear[ICD10: H66.002] Diagnosis: Abnormal weight gain[ICD10: R63.5] Diagnosis: Intervertebral disc disorders with radiculopathy, 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] Kathleen APPIAH DO [facility] CPT-4: 99 214 01/30/2018 ([id number]) PREV VISIT EST AGE 40-64 Diagnosis: Encounter for general adult medical examination without abnormal findings[ICD10: Z00.00] Diagnosis: Essential (primary) hypertension[ICD10: I10] Diagnosis: Mixed hyperlipidemia[ICD10: E78.2] Diagnosis: Type 2 diabetes mellitus with hyperglycemia[ICD10: E11.65] Diagnosis: 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] María Elena APPIAH DO [facility] CPT-4: 74281 12/18/2017 ([id number]) OFFICE/OUTPATIENT VISIT EST Diagnosis: Cellulitis of right toe[ICD10: L03.031] Diagnosis: Mixed hyperlipidemia[ICD10: E78.2] Diagnosis: Essential (primary) hypertension[ICD10: I10] Diagnosis: Hyperglycemia, unspecified[ICD10: R73.9] Diagnosis: Nontoxic goiter, 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] María Elena APPIAH DO [facility] CPT-4: 13098 12/10/2017 ([id number]) OFFICE/OUTPATIENT VISIT EST Diagnosis: Cellulitis of right toe[ICD10: L03.031] Diagnosis: Acute sinusitis, unspecified[ICD10: J01.90] Kathleen APPIAH DO [facility] CPT-4: 03840 12/07/2017 OFFICE/OUTPATIENT VISIT EST Diagnosis: Acute maxillary sinusitis, unspecified[ICD10: J01.00] Kathleen APPIAH DO [facility] CPT-4: 36285 10/08/2017 ([id number]) OFFICE/OUTPATIENT VISIT EST Diagnosis: Cellulitis of left toe[ICD10: L03.032] María Elena [employer] APPIAH [employer] [facility] CPT-4: 02425 09/21/2017 ([id number]) OFFICE/OUTPATIENT VISIT EST Diagnosis: Insomnia, unspecified[ICD10: G47.00] Diagnosis: Major depressive disorder, single episode, unspecified[ICD10: F32.9] Diagnosis: Anxiety disorder, unspecified[ICD10: F41.9] Diagnosis: Cellulitis of left toe[ICD10: L03.032] Diagnosis: Snoring[ICD10: R06.83] Kathleen APPIAH DO [facility] CPT-4: 75479 09/20/2017 ([id number]) OFFICE/OUTPATIENT VISIT EST Diagnosis: Cellulitis of left toe[ICD10: L03.032] María Elena APPIAH [facility] CPT-4: 76365 07/19/2017 OFFICE/OUTPATIENT VISIT EST Diagnosis: Chronic sinusitis, unspecified[ICD10: J32.9] Diagnosis: Generalized hyperhidrosis[ICD10: R61] Kathleen APPIAH DO [facility] CPT-4: 00993 06/27/2017 ([id number]) OFFICE/OUTPATIENT VISIT EST Diagnosis: Intervertebral disc disorders with radiculopathy, 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] Diagnosis: Primary insomnia[ICD10: F51.01] Diagnosis: Other fatigue[ICD10: R53.83] María Elena APPIAH DO [facility] CPT-4: 12203 04/10/2017 ([id number]) OFFICE/OUTPATIENT VISIT EST Diagnosis: Primary insomnia[ICD10: F51.01] Diagnosis: Localized edema[ICD10: R60.0] Diagnosis: 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] María Elena APPIAH [employer] [facility] CPT-4: 61087 12/13/2016 ([id number]) OFFICE/OUTPATIENT VISIT EST Diagnosis: Primary insomnia[ICD10: F51.01] Diagnosis: Cyanosis[ICD10: R23.0] María Elena Baz[employer] [facility] CPT-4: 68596 11/01/2016 ([id number]) PREV VISIT EST AGE 40-64 Diagnosis: Encounter for gynecological examination (general) (routine) without abnormal findings[ICD10: Z01.419] Diagnosis: Encounter for routine child health examination without abnormal findings[ICD10: Z00.129] María Elena APPIAH [employer] [facility] CPT-4: 67883 10/17/2016 ([id number]) OFFICE/OUTPATIENT VISIT EST Diagnosis: Other seasonal allergic rhinitis[ICD10: J30.2] María Elena APPIAH DO [facility] CPT-4: 74189 10/10/2016 ([id number]) OFFICE/OUTPATIENT VISIT EST Diagnosis: Pain in left arm[ICD10: M79.602] Diagnosis: Contact with and (suspected) exposure to potentially hazardous body fluids[ICD10: Z77.21] Diagnosis: 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, 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] Diagnosis: Unspecified open wound, right foot, sequela[ICD10: S91.301S] María Elena APPIAH DO [facility] CPT-4: 20462 09/19/2016 ([id number]) OFFICE/OUTPATIENT VISIT EST Diagnosis: Chronic sinusitis, unspecified[ICD10: J32.9] Diagnosis: Allergic rhinitis due to pollen[ICD10: J30.1] María Elena APPIAH DO [facility] CPT-4: 71948 08/24/2016 ([id number]) OFFICE/OUTPATIENT VISIT EST Diagnosis: Acute bronchitis, unspecified[ICD10: J20.9] María Elena APPIAH DO [facility] CPT-4: 13916 08/16/2016 ([id number]) OFFICE/OUTPATIENT VISIT EST Diagnosis: Otitis media, unspecified, right ear[ICD10: H66.91] Diagnosis: Acute bronchitis, unspecified[ICD10: J20.9] María Elena APPIAH [employer] [facility] CPT-4: 65246 08/10/2016 ([id number]) OFFICE/OUTPATIENT VISIT EST Diagnosis: Acute recurrent sinusitis, unspecified[ICD10: J01.91] Diagnosis: Allergic rhinitis due to pollen[ICD10: J30.1] María Elena APPIAH [employer] [facility] CPT-4: 09816 08/02/2016 ([id number]) OFFICE/OUTPATIENT VISIT EST Diagnosis: Pain in unspecified joint[ICD10: M25.50] María Elena APPIAH [employer] [facility] CPT-4: 81400 07/27/2016 OFFICE/OUTPATIENT VISIT EST Diagnosis: 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] Diagnosis: Acute recurrent sinusitis, unspecified[ICD10: J01.91] Diagnosis: Other fatigue[ICD10: R53.83] Diagnosis: Primary insomnia[ICD10: F51.01] Diagnosis: Pain in unspecified joint[ICD10: M25.50] María Elena APPIAH DO [facility] CPT-4: 14459 07/20/2016 ([id number]) OFFICE/OUTPATIENT VISIT EST Diagnosis: Blister (nonthermal), left great toe, initial encounter[ICD10: S90.422A] Loan PAPIAH DO [facility] CPT-4: 12914 ([id number]) OFFICE/OUTPATIENT VISIT EST Diagnosis: Acute recurrent sinusitis, unspecified[ICD10: J01.91] María Elena APPIAH DO [facility] CPT-4: 04745 05/25/2016 ([id number]) OFFICE/OUTPATIENT VISIT EST Diagnosis: Acute sinusitis, unspecified[ICD10: J01.90] María Elena APPIAH DO [facility] CPT-4: 85464 04/26/2016 ([id number]) OFFICE/OUTPATIENT VISIT EST Diagnosis: Flushing[ICD10: R23.2] Diagnosis: Primary insomnia[ICD10: F51.01] María Elena APPIAH [facility] CPT-4: 30259 03/02/2016 ([id number]) OFFICE/OUTPATIENT VISIT EST Diagnosis: Other seasonal allergic rhinitis[ICD10: J30.2] Loan APPIAH [facility] CPT-4: 94112 02/09/2016 ([id number]) OFFICE/OUTPATIENT VISIT EST Diagnosis: Primary insomnia[ICD10: F51.01] Diagnosis: Urinary tract infection, site not specified[ICD10: N39.0] María Elena APPIAH [facility] CPT-4: 87943 01/24/2016 ([id number]) OFFICE/OUTPATIENT VISIT EST Diagnosis: Other specified disorders of Eustachian tube, bilateral[ICD10: H69.83] Diagnosis: Allergic rhinitis, unspecified[ICD10: J30.9] Loan APPIAH [facility] CPT-4: 56985 12/23/2015 ([id number]) OFFICE/OUTPATIENT VISIT EST Diagnosis: Acute recurrent sinusitis, unspecified[ICD10: J01.91] Diagnosis: 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] Diagnosis: Allergic rhinitis, unspecified[ICD10: J30.9] María Elena APPIAH DO [facility] CPT-4: 16923 12/08/2015 ([id number]) OFFICE/OUTPATIENT VISIT EST Diagnosis: Allergic rhinitis, unspecified[ICD10: J30.9] Diagnosis: Pain in unspecified joint[ICD10: M25.50] María Elena APPIAH DO [facility] CPT-4: 29741 10/07/2015 ([id number]) OFFICE/OUTPATIENT VISIT EST Diagnosis: Essential (primary) hypertension[ICD10: I10] María Elena APPIAH DO [facility] CPT-4: 60921 10/06/2015 OFFICE/OUTPATIENT VISIT EST Diagnosis: Localized enlarged lymph nodes[ICD10: R59.0] Diagnosis: Local infection of the skin and subcutaneous tissue, unspecified[ICD10: L08.9] June Sandra MARÍA ELENA APPIAH DO [facility] CPT- 4: 94051 09/14/2015 ([id number]) OFFICE/OUTPATIENT VISIT EST Diagnosis: Essential (primary) hypertension[ICD10: I10] Diagnosis: Actinic keratosis[ICD10: L57.0] María Elena APPIAH DO [facility] CPT-4: 10412 09/07/2015 ([id number]) OFFICE/OUTPATIENT VISIT EST Diagnosis: Essential (primary) hypertension[ICD10: I10] Diagnosis: Acute stress reaction[ICD10: F43.0] María Elena APPIAH DO [facility] CPT-4: 05012 08/18/2015 ([id number]) OFFICE/OUTPATIENT VISIT EST Diagnosis: Essential (primary) hypertension[ICD10: I10] María Elena APPIAH DO [facility] CPT-4: 52456 07/07/2015 ([id number]) OFFICE/OUTPATIENT VISIT EST Diagnosis: Essential (primary) hypertension[ICD10: I10] María Elena APPIAH DO [facility] CPT-4: 29339 06/24/2015 ([id number]) OFFICE/OUTPATIENT VISIT EST Diagnosis: Essential (primary) hypertension[ICD10: I10] María Elena APPIAH [facility] CPT-4: 58667 06/21/2015 ([id number]) OFFICE/OUTPATIENT VISIT EST Diagnosis: Essential (primary) hypertension[ICD10: I10] Diagnosis: Mixed hyperlipidemia[ICD10: E78.2] Diagnosis: Acute stress reaction[ICD10: F43.0] Diagnosis: Primary insomnia[ICD10: F51.01] María Elena APPIAH [facility] CPT-4: 68721 06/16/2015 ([id number]) OFFICE/OUTPATIENT VISIT EST Diagnosis: INSOMNIA NOS[ICD9: 780.52] Diagnosis: HYPERTENSION[ICD9: 401.9] Diagnosis: Stress reaction[ICD9: 308.9] María Elena APPIAH [facility] CPT-4: 93402 06/02/2015 ([id number]) OFFICE/OUTPATIENT VISIT EST Diagnosis: HYPERTENSION[ICD9: 401.9] Diagnosis: Stress reaction[ICD9: 308.9] María Elena APPIAH [facility] CPT-4: 78008 05/20/2015 ([id number]) OFFICE/OUTPATIENT VISIT EST Diagnosis: Skin lesion[ICD9: 709.9] 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] María Elena APPIAH [facility] CPT-4: 57247 05/10/2015 ([id number]) OFFICE/OUTPATIENT VISIT EST Diagnosis: SINUSITIS, ACUTE[ICD9: 461.9] Diagnosis: ALLERGIC RHINITIS[ICD9: 477.9] Diagnosis: DERMATITIS NOS[ICD9: 692.9] María Elena Rodríguez ORI [facility] CPT-4: 78299 03/16/2015 OFFICE/OUTPATIENT VISIT EST Diagnosis: Otitis media[ICD9: 382.9] Diagnosis: SINUSITIS, ACUTE[ICD9: 461.9] June Flores MARÍA ELENA APPIAH [facility] CPT-4: 67544 09/11/2014 ([id number]) OFFICE/OUTPATIENT VISIT EST Diagnosis: HYPERLIPIDEMIA NEC/NOS[ICD9: 272.4] María Elena MONTEROGOMEZ COLON Fabiola APPIAH [facility] CPT-4: 96566 08/31/2014 ([id number]) OFFICE/OUTPATIENT VISIT EST Diagnosis: - I - HYPERTENSION[ICD9: 401.9] Diagnosis: HYPERLIPIDEMIA NEC/NOS[ICD9: 272.4] María Elena APPIAH DO [facility] CPT-4: 54461 08/27/2014 ([id number]) OFFICE/OUTPATIENT VISIT EST Diagnosis: ABDOMINAL PAIN[ICD9: 789.00] Diagnosis: DYSPEPSIA[ICD9: 536.8] Diagnosis: Thoracic back pain[ICD9: 724.1] María Elena APPIAH DO [facility] CPT-4: 52670 07/21/2014 ([id number]) OFFICE/OUTPATIENT VISIT EST Diagnosis: ALLERGIC RHINITIS[ICD9: 477.9] María Elena APPIAH DO [facility] CPT-4: 64804 07/15/2014 ([id number]) OFFICE/OUTPATIENT VISIT EST Diagnosis: EDEMA[ICD9: 782.3] Diagnosis: Chronic insomnia[ICD9: 780.52] María Elena APPIAH [facility] CPT-4: 93844 05/18/2014 ([id number]) OFFICE/OUTPATIENT VISIT EST Diagnosis: Thyromegaly[ICD9: 240.9] Diagnosis: - I - HYPERTENSION[ICD9: 401.9] Diagnosis: ROUTINE MEDICAL EXAM[ICD9: V70.0] Diagnosis: EDEMA[ICD9: 782.3] María Elena APPIAH [facility] CPT-4: 91977 05/14/2014 OFFICE/OUTPATIENT VISIT EST Diagnosis: BRONCHITIS, ACUTE[ICD9: 466.0] Diagnosis: SINUSITIS, ACUTE[ICD9: 461.9] María Elena APPIAH DO [facility] CPT-4: 23943 04/21/2014 OFFICE/OUTPATIENT VISIT EST Diagnosis: SINUSITIS, ACUTE[ICD9: 461.9] June Sandra MARÍA ELENA APPIAH DO [facility] CPT-4: 05361 03/04/2014 ([id number]) OFFICE/OUTPATIENT VISIT EST Diagnosis: VACCINE FOR TDAP[ICD10: Z23] María Elena APPIAH [facility] CPT-4: 31136 02/27/2014 ([id number]) OFFICE/OUTPATIENT VISIT EST Diagnosis: Seborrheic keratoses, inflamed[ICD9: 702.11] Diagnosis: ACTINIC KERATOSIS[ICD9: 702.0] Diagnosis: INSOMNIA NOS[ICD9: 780.52] María Elena Valdes [facility] CPT-4: 25784 01/13/2014 OFFICE/OUTPATIENT VISIT EST 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] Diagnosis: ALLERGIC RHINITIS[ICD9: 477.9] Diagnosis: Serous otitis media[ICD9: 381.4] MaríaE lena APPIAH [facility] CPT-4: 50161 12/24/2013 ([id number]) OFFICE/OUTPATIENT VISIT EST Diagnosis: SINUSITIS, ACUTE[ICD9: 461.9] Diagnosis: ALLERGIC RHINITIS[ICD9: 477.9] 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] María Elena [facility]: 95859 11/12/2013 ([id number]) OFFICE/OUTPATIENT VISIT EST Diagnosis: ALLERGIC RHINITIS[ICD9: 477.9] Diagnosis: SINUSITIS, ACUTE[ICD9: 461.9] María [facility]: 60202 10/21/2013 ([id number]) OFFICE/OUTPATIENT VISIT EST Diagnosis: ASYMPTOMATIC VARICOSE VEINS[ICD9: 454.9] Diagnosis: INSOMNIA NOS[ICD9: 780.52] María Elena [facility] CPT-[facility]: 62761 09/22/2013 OFFICE/OUTPATIENT VISIT EST Diagnosis: SINUSITIS, ACUTE[ICD9: 461.9] June Flores MARÍA ELENA [facility] CPT-[facility]: 24349 08/27/2013 ([id number]) OFFICE/OUTPATIENT VISIT EST Diagnosis: CEPHALGIA[ICD9: 784.0] Diagnosis: CEPHALGIA, TENSION[ICD9: 307.81] 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] María Elena APPIAH DO [facility] CPT-4: 29740 08/04/2013 ([id number]) OFFICE/OUTPATIENT VISIT EST Diagnosis: Cervicalgia[ICD9: 723.1] Diagnosis: SPASM OF MUSCLE[ICD9: 728.85] Diagnosis: CEPHALGIA, TENSION[ICD9: 307.81] María Elena APPIAH DO [facility] CPT-4: 17816 07/23/2013 ([id number]) OFFICE/OUTPATIENT VISIT EST 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] Diagnosis: ALLERGIC RHINITIS[ICD9: 477.9] María Elena APPIAH DO [facility] CPT-4: 15257 06/23/2013 ([id number]) OFFICE/OUTPATIENT VISIT EST Diagnosis: ALLERGIC RHINITIS[ICD9: 477.9] Diagnosis: ACUTE SEROUS OTITIS MEDIA[ICD9: 381.01] 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] María Elena APPIAH DO [facility] CPT-4: 97209 05/26/2013 ([id number]) OFFICE/OUTPATIENT VISIT EST Diagnosis: HYPERTENSION[ICD9: 401.9] Diagnosis: EDEMA[ICD9: 782.3] Diagnosis: Serous otitis media[ICD9: 381.4] María Elena APPIAH DO [facility] CPT-4: 33940 04/16/2013 ([id number]) OFFICE/OUTPATIENT VISIT EST Diagnosis: SINUSITIS, ACUTE[ICD9: 461.9] Diagnosis: ALLERGIC RHINITIS[ICD9: 477.9] Diagnosis: EDEMA[ICD9: 782.3] Diagnosis: Thyromegaly[ICD9: 240.9] Diagnosis: MALAISE AND FATIGUE[ICD9: 780.79] María Elena APPIAH [facility] CPT-4: 25963 03/05/2013 ([id number]) OFFICE/OUTPATIENT VISIT EST Diagnosis: PAIN, LOWER BACK[ICD9: 724.2] Diagnosis: SPASM OF MUSCLE[ICD9: 728.85] María Elena APPIAH DO [facility] CPT-4: 93518 12/23/2012 OFFICE/OUTPATIENT VISIT EST Diagnosis: Low back pain[ICD9: 724.2] Lashawn Hicks KRISTYN KENTER [facility] CPT-4: 41649 12/16/2012 ([id number]) OFFICE/OUTPATIENT VISIT EST Diagnosis: PAIN, LOWER BACK[ICD9: 724.2] Diagnosis: SCIATICA[ICD9: 724.3] Diagnosis: Lumbar herniated disc[ICD9: 722.10] María Elena COLON LucioJj TD GARIBAY [facility] CPT-4: 78474 12/09/2012 ([id number]) OFFICE/OUTPATIENT VISIT EST Diagnosis: PAIN, LOWER BACK[ICD9: 724.2] Diagnosis: SCIATICA[ICD9: 724.3] Diagnosis: LUMBAR DISC DISPLACEMENT[ICD9: 722.10] María Elena MARIN LucioJj TD [facility] CPT-4: 47942 12/04/2012 OFFICE/OUTPATIENT VISIT EST Diagnosis: Pneumonia[ICD9: 486] Mary Hicks TD GARIB[facility] CPT-4: 65641 11/22/2012 ([id number]) OFFICE/OUTPATIENT VISIT EST Diagnosis: PNEUMONIA, ORGANISM[ICD9: 486] Diagnosis: Exacerbation of RAD (reactive airway disease)[ICD9: 493.92] María Elena JUARES LucioJj TD [facility] CPT-4: 54512 11/21/2012 OFFICE/OUTPATIENT VISIT EST Diagnosis: HYPERTENSION[ICD9: 401.9] Diagnosis: Cephalgia[ICD9: 784.0] Lashawn Hicks SEAMUSMINDIVICTORINO [facility]AR[facility] CPT-4: 64334 10/29/2012 ([id number]) OFFICE/OUTPATIENT VISIT EST Diagnosis: MALAISE AND FATIGUE[ICD9: 780.79] Diagnosis: ARTHRALGIA-MULTIPLE SITES[ICD9: 719.49] María Elena Hicks TD GARIB[facility] CPT-4: 96616 10/14/2012 ([id number]) OFFICE/OUTPATIENT VISIT EST Diagnosis: URINARY FREQUENCY[ICD9: 788.41] María Elena Hicks TD GARIBAY [facility] CPT-4: 52576 09/27/2012 ([id number]) OFFICE/OUTPATIENT VISIT EST Diagnosis: MALAISE AND FATIGUE[ICD9: 780.79] Diagnosis: ARTHRALGIA-MULTIPLE SITES[ICD9: 719.49] María Elena ValdesJj [facility]: 62656 09/25/2012 ([id number]) OFFICE/OUTPATIENT VISIT EST Diagnosis: SINUSITIS, ACUTE[ICD9: 461.9] 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] María Elena ValdesJj TD [facility] CPT-4: 99948 08/29/2012 OFFICE/OUTPATIENT VISIT EST Diagnosis: ACTINIC KERATOSIS[ICD9: 702.0] Diagnosis: Inflamed seborrheic keratosis[ICD9: 702.11] Diagnosis: Skin cancer of face[ICD9: 173.31] Diagnosis: HYPERTENSION[ICD9: 401.9] María Elena Waymindivictorino ValdesJj [facility] CPT-4: 24164 08/12/2012 ([id number]) OFFICE/OUTPATIENT VISIT EST Diagnosis: ARTHRALGIA-MULTIPLE SITES[ICD9: 719.49] Diagnosis: GOUT[ICD9: 274.9] Diagnosis: HYPERTENSION[ICD9: 401.9] Diagnosis: Tachycardia[ICD9: 785.0] María Elena ELLISLINE LucioJj [facility] CPT-4: 51658 05/06/2012 ([id number]) OFFICE/OUTPATIENT VISIT EST Diagnosis: INSOMNIA NOS[ICD9: 780.52] María Elena Seamusabbey JUARES LucioJj [facility]: 24114 04/03/2012 ([id number]) OFFICE/OUTPATIENT VISIT EST Diagnosis: INSOMNIA NOS[ICD9: 780.52] Diagnosis: HYPERTENSION[ICD9: 401.9] Diagnosis: MIGRAINE NOS/NOT INTRCBL[ICD9: 346.90] María Elena Seamusabbey MARIN LucioJj [facility] CPT-[facility]: 96855 03/19/2012 ([id number]) OFFICE/OUTPATIENT VISIT EST Diagnosis: CELLULITIS[ICD9: 682.9] Diagnosis: Ankle pain[ICD9: 719.47] Diagnosis: HYPERTENSION[ICD9: 401.9] María Elena JUARES LucioJj [facility] CPT-4: 62779 02/20/2012 ([id number]) OFFICE/OUTPATIENT VISIT EST Diagnosis: MIGRAINE NOS/NOT INTRCBL[ICD9: 346.90] Diagnosis: Vomiting[ICD9: 787.03] María Elena JUARES LucioJj CIRO Bazzi [facility] CPT-4: 04126 01/30/2012 ([id number]) OFFICE/OUTPATIENT VISIT EST Diagnosis: EDEMA[ICD9: 782.3] Diagnosis: HYPERTENSION[ICD9: 401.9] Diagnosis: ALLERGIC RHINITIS[ICD9: 477.9] Diagnosis: ARTHRALGIA-MULTIPLE SITES[ICD9: 719.49] María Elena Hicks SEAMUSMINDIVICTORINO [facility] CPT-4: 42978 01/24/2012 ([id number]) OFFICE/OUTPATIENT VISIT EST Diagnosis: SPASM OF MUSCLE[ICD9: 728.85] Diagnosis: Thoracic back pain[ICD9: 724.1] Diagnosis: Cervical pain[ICD9: 723.1] María Elena Hicks KRISTYN MUMTAZ [facility] CPT-4: 44770 01/10/2012 OFFICE/OUTPATIENT VISIT EST Diagnosis: PAIN, LOWER BACK[ICD9: 724.2] Diagnosis: LUMBAR DISC DISPLACEMENT[ICD9: 722.10] María Elena MARIN LucioJj TD [facility] CPT-4: 10115 12/11/2011 OFFICE/OUTPATIENT VISIT EST Diagnosis: MIGRAINE NOS/NOT INTRCBL[ICD9: 346.90] Diagnosis: SINUSITIS, ACUTE[ICD9: 461.9] María Elena Hicks SEAMUSMINDIVICTORINO [facility] CPT-4: 21984 11/09/2011 OFFICE/OUTPATIENT VISIT EST Diagnosis: MIGRAINE NOS/NOT INTRCBL[ICD9: 346.90] Diagnosis: LYMPHADENOPATHY[ICD9: 785.6] María Elena Hicks TD [facility] CPT-4: 27197 09/13/2011 OFFICE/OUTPATIENT VISIT EST Diagnosis: MALAISE AND FATIGUE[ICD9: 780.79] Diagnosis: ARTHRALGIA-MULTIPLE SITES[ICD9: 719.49] María Elena Hicks TD [facility] CPT-4: 66022 08/31/2011 OFFICE/OUTPATIENT VISIT EST Diagnosis: SINUSITIS, ACUTE[ICD9: 461.9] María Elena APPIAH DO [facility] CPT-4: 97252 07/20/2011 OFFICE/OUTPATIENT VISIT EST Diagnosis: HYPERTENSION[ICD9: 401.9] Diagnosis: PAIN, LOWER BACK[ICD9: 724.2] Diagnosis: SPASM OF MUSCLE[ICD9: 728.85] María Elena APPIAH DO [facility] CPT-4: 98178 07/06/2011 OFFICE/OUTPATIENT VISIT EST Diagnosis: MIGRAINE NOS/NOT INTRCBL[ICD9: 346.90] Diagnosis: HYPERTENSION[ICD9: 401.9] María Elena MOJICAR DO [facility] CPT-4: 92961 05/22/2011 OFFICE/OUTPATIENT VISIT EST Diagnosis: SINUSITIS, ACUTE[ICD9: 461.9] Diagnosis: MIGRAINE NOS/NOT INTRCBL[ICD9: 346.90] Diagnosis: Dehydration[ICD9: 276.51] Diagnosis: Vomiting[ICD9: 787.03] María Elena Bazzi DO [facility] CPT-4: 61637 05/09/2011 ([id number]) OFFICE/OUTPATIENT VISIT EST María Elena ISAAC UJARED S. SEAMUSNDER DO [facility] CPT-4: 19275 02/14/2011 ([id number]) OFFICE/OUTPATIENT VISIT EST María Elena ISAAC UJARED S. ORENDER DO [facility] CPT-4: 01042 02/03/2011 ([id number]) OFFICE/OUTPATIENT VISIT EST María Elena ISAAC UELINE S. ORENDER DO [facility] CPT-4: 61477 01/31/2011 ([id number]) OFFICE/OUTPATIENT VISIT EST María Elena Td ISAAC UJARED S. SEAMUSNDER DO [facility] CPT-4: 62020 01/25/2011 ([id number]) OFFICE/OUTPATIENT VISIT EST María Elenamarcella MARIN S. ORENDER DO [facility] CPT-4: 05783 01/18/2011 ([id number]) OFFICE/OUTPATIENT VISIT EST María Elena ISAAC [facility]ED [facility] CPT-4: 37261 11/29/2010 ([id number]) OFFICE/OUTPATIENT VISIT, EST María Elena REED [facility] CPT-4: 72941 10/10/2010 ([id number]) OFFICE/OUTPATIENT VISIT, EST María Elena [facility] CPT-4: 02106 06/07/2010 ([id number]) OFFICE/OUTPATIENT VISIT, EST María Elena [facility] CPT-4: 63022 04/27/2010 ([id number]) OFFICE/OUTPATIENT VISIT, EST María Elena [facility] CPT-4: 81785 04/05/2010 ([id number]) OFFICE/OUTPATIENT VISIT, EST María Elena [facility] CPT-4: 97923 03/09/2010 ([id number]) OFFICE/OUTPATIENT VISIT, EST María Elena [facility] CPT-4: 49703 03/03/2010 ([id number]) OFFICE/OUTPATIENT VISIT, EST María Elena [facility] CPT-4: 71143 01/17/2010 ([id number]) PREV VISIT, EST, AGE 40-64 María Elena [facility]MAN [facility] CPT-4: 42277 12/27/2009 Plan of Care Planned Activity Notes [...] E11.65 01/13/2020 Appointment: [facility] [phone] [facility] [facility] 01/13/2020 Patient Education: lisinopril- [employer] [id number] Completed 01/13/2020 Patient Education: glimepiride- [employer]on [id number] Completed 01/13/2020 Appointment: María Elena [facility]iah [facility] [phone] [facility] [place] CANCELED 11/26/2019 Visit Diagnosis Plan: Type 2 diabetes mellitus with hy perglycemia Discussion: Januvia 100mg daily Glimepride 2mg po BID Accuchecks BID Call in 2 weeks with BS readings Get formulary book ICD-9 : 250.02 ICD-10 : E11.65 11/20/2019 Appointment: María Elena [facility]iah [facility] [phone] [facility] [facility] 11/20/2019 Patient Education: glimepiride- [employer]on [id number] Completed 11/20/2019 Patient Education: Januvia- [employer]on [id number] Completed 11/20/2019 Visit Diagnosis Plan: Ingrowing nail [...] E11.65 10/07/2019 Appointment: Kathleen Zuniga [address] [facility] US OFFICE SURGERY 10/07/2019 Visit Diagnosis Plan: [...] E11.65 09/30/2019 Appointment: María Elena Appiah WPtel: [address] [place], [place] [phone] [place] CHECK UP 09/30/2019 Patient Education: Premarin- [employer] C[employer]on [id number] https://[email or web address].com/samplemd/resources/getResource/61/44699o47-b508-9fgs-w5 Completed 09/30/2019 Appointment: María Elena Appiah WPtel: [address] [place], [place] [phone] [place] LAB 09/29/2019 Appointment: María Elena Appiah WPtel: [address] [place], [place] [phone] [place] Won't have the new insurance till [...] W06.XXXS 05/28/2019 Appointment: María Elena Appiah WPtel: [address] [place], [place] [phone] [place] FOLLOW UP 05/28/2019 Appointment: María Elena Appiah WPtel: [address] [place] [address] US BP CHECK 05/19/2019 Visit Diagnosis Plan: [...] Z79.890 01/22/2019 Appointment: María Elena Appiah WPtel: [address] [place], [place] [phone] [place] FOLLOW UP 01/22/2019 Patient Education: estradiol- [employer] C[employer]on [id number] https://[email or web address]/samplemd/resources/getResource/61/277r973o-0my2-8j66-9w Completed 01/22/2019 Appointment: María Elena Appiahtel: [address] [place], [place] [phone] [place] CANCELED 01/20/2019 Appointment: María Elena Appiah WPtel: [address] [place], [place] [phone] [place] LM NO SHOW 01/06/2019 Appointment: María Elena Appiah WPtel: [address] [place] [address] [place] CANCELED 10/17/2018 Appointment: María Elena Appiah WPtel: [address] [place] [address] US BP CHECK 10/09/2018 Visit Diagnosis Plan: [...] I10 09/30/2018 Appointment: María Elena Appiah WPtel: [address] [place] [address] [place] FOLLOW UP 09/30/2018 Visit Diagnosis Plan: [...] F51.01 08/27/2018 Appointment: María Elena Appiah WPtel: [address] [place] [address] ACUTE ILLNESS 08/27/2018 Appointment: María Elena Appiah WPtel: [address] [place] [address] US Patient stated she went out to [...] Tyle... 08/09/2018 Appointment: María Elena Appiah WPtel: [address] [place] [address] ACUTE ILLNESS 08/09/2018 Appointment: María Elena Appiahtel: [address] [place] [address] NO SHOW 08/08/2018 Visit Diagnosis Plan: Anxiety [...] : B35.4 07/22/2018 Appointment: María Elena Appiahtel: [address] [place] [address] ACUTE ILLNESS 07/22/2018 Appointment: María Elena Appiahtel: [address] [place] [address] US INJECTION 06/19/2018 Patient Education: Patient Medication [...] : L03.031 06/17/2018 Appointment: Kathleen Zuniga [address] ACUTE ILLNESS 06/17/2018 Patient Education: Patient [...] : B02.9 05/16/2018 Appointment: Kathleen Zuniga [address] [place] [id number] ACUTE ILLNESS 05/16/2018 Patient Education: Patient Medication [...] ICD-10 : L03.115 03/20/2018 Appointment: Kathleen Zuniga [address] [place], [place] [id number] FOLLOW UP 03/20/2018 Patient Education: Patient Medication [...] : L03.115 03/18/2018 Appointment: Kathleen Zuniga [address] [place] [phone] FOLLOW UP 03/18/2018 Patient Education: Patient Medication [...] : L03.115 03/15/2018 Appointment: Kathleen Zuniga [address] [place] [address] ACUTE ILLNESS 03/15/2018 Patient Education: Patient Medication [...] : J01.90 02/11/2018 Appointment: Kathleen Zuniga [address] [place] [phone] ACUTE ILLNESS 02/11/2018 Patient Education: Patient Medication Summary Completed 02/11/2018 Appointment: María Elena Appiah WPtel: [phone] [facility] INJECTION 02/01/2018 Patient Education: Patient Medication Summary [...] ICD-10 : M51.16 01/30/2018 Appointment: Kathleen Zuniga [address] [place] [address] ACUTE ILLNESS 01/30/2018 Patient Education: Patient Medication [...] 12/18/2017 Appointment: María Elena Appiah WPtel: [phone] Annual Well Visit 12/18/2017 Patient Education: Patient Medication Summary Completed 12/18/2017 Care Plan: Referral Order SNOMED-CT : [id number] Pending 12/18/2017 Appointment: María Elena Appiah WPtel: [phone] [facility] US INJECTION 12/10/2017 Patient Education: Patient Medication [...] ICD-10 : L03.031 12/07/2017 Appointment: Kathleen Zuniga [address] [place] [address] ACUTE ILLNESS 12/07/2017 Patient Education: Patient Medication [...] ICD-10 : J01.00 10/08/2017 Appointment: Kathleen Zuniga [address] [place], [place] [id number] ACUTE ILLNESS 10/08/2017 Patient Education: Patient Medication Summary Completed 10/08/2017 Appointment: María Elena Appiah WPtel: [phone] [facility] US INJECTION 09/21/2017 Patient Education: [...] ICD-10 : R06.83 09/20/2017 Appointment: Kathleen Zuniga [address] [place], [place] [id number] ACUTE ILLNESS 09/20/2017 Patient Education: Patient [...] : 703.0 ICD-10 : L60.0 08/29/2017 Appointment: Katlheen Zuniga [address] OFFICE SURGERY 08/29/2017 Patient Education: Patient Medication Summary Completed 08/29/2017 Visit Diagnosis Plan: Actinic keratosis Discussion: Cr yotherapy as above ICD-9 : 702.0 ICD-10 : L57.0 08/01/2017 Appointment: María Elena Appiah WPtel: [address] [place] [address] OFFICE SURGERY 08/01/2017 Patient Education: Patient Medication Summary Completed 08/01/2017 Appointment: María Elena Appiah WPtel: [address] [place] [address] PATIENT THOUGHT APPOINTMENT WAS TOMORROW 07/26/17 CALLED 15 MINUTES BEFORE APPT TO SAY SHE DIDN'T HAVE ANYONE TO COVER HER BUSINESS AND WOULD NOT MAKE IT NO SHOW 07/25/2017 Visit Diagnosis Plan: Cellulitis of left toe Discussio n: Clindamycin and notify if worsening or persistis ICD-9 : 681.10 ICD-10 : L03.032 07/19/2017 Appointment: María Elena Appiah WPtel: [address] [place] [address] MEDICATION REVIEW 07/19/2017 Patient Education: Patient Medication Summary Completed 07/19/2017 Appointment: María Elena Appiah WPtel: [address] [place] [address] CANCELED 07/04/2017 Visit Diagnosis Plan: Generalized hyperhidrosis Discus ian: CBC, CMP, TSH, free T4 ordered to assess. will review labs. ICD-9 : 780.8 ICD-10 : R61 06/27/2017 Visit Diagnosis Plan: Chronic sinusitis, unspecified D iscussion: Referral sent to dr. albarado in [place] per patient request. patient has been treated multiple times for sinus infections with no recovery. patient was seen by dr sanchez in the past with no interventions. patient has deviated septum which may be affecting her sinuses. 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, including hip Discussion: Shave removal of above lesio n--sent to pathology ICD-9 : 216.7 ICD-10 : D23.72 01/24/2017 Appointment: María Elena Appiah WPtel: [address] [place], [place] [phone] 01/23 confirmed ~sl OFFICE SURGERY 01/24/2017 Patient Education: Patient Medication Summary Completed 01/24/2017 Appointment: Loan Sánchez [address] [place], [place] [id number] 01/09 rescheduled~sl RESCHEDULED 01/15/2017 Visit Diagnosis Plan: [...] L81.4 12/13/2016 Appointment: María Elena Appiah WPtel: [address] [place], [place] [id number] [place] 12/12 confirmed ~sl MEDICATION REVIEW 12/13/2016 Patient Education: Patient Medication Summary Completed 12/13/2016 Appointment: María Elena Appiah WPtel: [address] [place], [place] [id number] [place] rescheduled for 12/13/16 at 11am RESCHEDULED 0 12/06/2016 Appointment: María Elena Appiah WPtel: [address] [place], [place] [id number] [place] CANCELED 11/23/2016 Patient Education: Patient Medication [...] F51.01 11/01/2016 Appointment: María Elena Appiah WPtel: [address] [place], [place] [id number] [place] 10/31 lm `sl 11/01 lm` MEDICATION REVIEW 017 Patient Education: Patient Medication Summary Completed 11/01/2016 Referral: Canelo Overton WPtel: [address] [id number] [place] Referral Initiated 10/30/2016 Visit Diagnosis Plan: [...] 10/17/2016 Appointment: María Elena Appiah WPtel: [address] [place], [place] [id number] 10/16 confirmed ~sl PAP 10/17/2016 Patient Education: Patient Medication Summary Completed 10/17/2016 Care Plan: MAMMOGRAM SCREENING LOINC : 2 6347-5 Pending 10/17/2016 Visit Diagnosis Plan: Other seasonal allergic rhinitis Discussion: Decadron/Garamycin Nasal [place] Mix Too soon for steroid Retry zyrtec 10mg daily ICD-9 : 477.9 ICD-10 : J30.2 10/10/2016 Appointment: María Elena Appiah WPtel: [address] [place], [place] [id number] FOLLOW UP 10/10/2016 Patient Education: Patient Medication Summary Completed 10/10/2016 Appointment: María Elena Appiahtel: [address] [place] [id number] 10/02 reschedule `sl RESCHEDULED 10/02/2016 Visit Plan: See surgery for removal of n ew left arm lesion and right foot lesion Lyrica to use next month for left arm paresthesias Continue current meds Discussed sunscreen/sunblock combo 09/19/2016 Appointment: María Elena Appiahtel: [address] [place] [id number] 09/18 confirmed ~sl FOLLOW UP 09/19/2016 Patient Education: Patient Medication Summary Completed 09/19/2016 Patient Education: Patient Medication Summary Completed 09/18/2016 Care Plan: MAMMOGRAM BOTH BREASTS LOINC : 62530-6 Pending 09/18/2016 Visit Plan: Discussed that needs [...] sinuses 08/24/2016 Appointment: María Elena Appiah WPtel: [address] [place] [address] ACUTE ILLNESS 08/24/2016 Patient Education: Patient Medication Summary Completed 08/24/2016 Patient Education: Patient Medication Summary Completed 08/23/2016 Care Plan: MAMMOGRAM SCREENING [facility] : 2 6347-5 Pending 08/23/2016 Visit Plan: Finish doxycycline Add Breo 100/25 1 p BID for 2 weeks If not improving within next 2 days will get CXR 08/16/2016 Appointment: María Elena Appiah WPtel: [address] [place] [address] ACUTE ILLNESS 08/16/2016 Patient Education: Patient Medication Summary Completed 08/16/2016 Visit Plan: Supportive care. Rest, Fluid s, Tylenol/Motrin prn fever or bodyaches. Notify if worsening symptoms. Doxycyline and Prednisone 08/10/2016 Appointment: María Elena Appiah WPtel: [address] [place] [address] 08/09 lm`sl....confirmed-sp FOLLOW UP 09/2015 Patient Education: Patient Medication Summary Completed 08/10/2016 Visit Plan: Saline nasal flushes prn. Ty lenol/Motrin prn headache. Notify if persists/symptoms worsening. Dexamethasone 8mg IM today May use coricedan and mucinex 08/02/2016 Appointment: María Elena Appiah WPtel: [address] [place] [address] ACUTE ILLNESS 08/02/2016 Patient Education: Patient Medication Summary Completed 08/02/2016 Visit Plan: Cryotherapy as above and lef t forearm lesion removal as above with 5-0 punch biopsy and sent to path Return in 10 days for suture removal 08/01/2016 Appointment: María Elena Appiah WPtel: [address] [place] [address] 07/31 confirmed`~ OFFICE SURGERY 08/01/2016 Patient Education: Patient Medication Summary Completed 08/01/2016 Visit Plan: Stop clindamycin Check CBC, CMP, ESR now/STAT 07/27/2016 Appointment: María Elena Appiah WPtel: [address] [place] [address] ACUTE ILLNESS 07/27/2016 Patient Education: Patient Medication Summary Completed 07/27/2016 Visit Plan: Update lab and check ABIs to start with Will likely need cardiology evaluation to rule out PVD Clindamycin for 10 days Daily yogurt or probiotic Will return for removal of left arm lesions 07/20/2016 Appointment: María Elena Appiah WPtel: [address] [place] [address] ACUTE ILLNESS 07/20/2016 Patient Education: Patient Medication Summary Completed 07/20/2016 Patient Education: Patient Medication Summary Completed 07/20/2016 Care Plan: MAMMOGRAM BOTH BREASTS LOINC : 09018-2 Pending 07/20/2016 Care Plan: US EXAM CHEST LOINC : 12412-7 Pending 07/20/2016 Visit Plan: Wound culture collected from left great toe Appearance is somewhat staph like Rx as above Wound cleanser and skin care reviewed May need to add oral antibiotic if sores do not heal or continue to reoccur 07/06/2016 Appointment: Loan Sánchez [address] [place], [place] [id number] ACUTE ILLNESS 07/06/2016 Patient Education: Patient Medication Summary Completed 07/06/2016 Appointment: María Elena Appiah WPtel: [address] [place] [address] [place] INJECTION 05/25/2016 Patient Education: Patient Medication Summary Completed 05/25/2016 Visit Plan: Saline nasal flushes prn. Ty lenol/Motrin prn headache. Notify if persists/symptoms worsening. Dexamethasone and Rocephin given 04/26/2016 Appointment: María Elena Appiah WPtel: [address] [place] [address] ACUTE ILLNESS 04/26/2016 Patient Education: Patient Medication Summary Completed 04/26/2016 Visit Plan: Check CBC, CMP, TSH, FreeT4, HbA1C, estradiol, lipids in AM 03/02/2016 Appointment: María Elena Appiah WPtel: [address] [place] [address] 03/01 lm~sl ACUTE ILLNESS 03/02/2016 Patient Education: Patient Medication Summary Completed 03/02/2016 Visit Plan: Exam is nearly normal Needs to be taking daily antihistamine Would prefer to use oral steroids instead of shot but patient insist that oral steroids cause horrible headaches for her Will given kenalog IM instead 02/09/2016 Appointment: Loan Sánchez [address] [place] [address] ACUTE ILLNESS 02/09/2016 Patient Education: Patient Medication Summary Completed 02/09/2016 Visit Plan: Culture urine Macrobid DC xa nax Trial of Ativan 1mg q HS 01/24/2016 Appointment: María Elena Appiah WPtel: [address] [place] [address] ACUTE ILLNESS 01/24/2016 Patient Education: Patient Medication Summary Completed 01/24/2016 Visit Plan: No steroid or rocephin injec tion warranted Can have oral prednisone Continue current home regimen Needs to follow up with Dr Sanchez if problems persist 12/23/2015 Appointment: Loan Sánchez [address] [place] [address] ACUTE ILLNESS 12/23/2015 Patient Education: Patient Medication Summary Completed 12/23/2015 Visit Plan: Saline nasal flushes prn. Ty lenol/Motrin prn headache. Notify if persists/symptoms worsening. Kenalog 40mg IM today 12/08/2015 Appointment: María Elena Appiah WPtel: [address] [place] [address] 12/06 confirmed~sl ACUTE ILLNESS 12/08/2015 Patient Education: Patient Medication Summary Completed 12/08/2015 Appointment: María Elena Appiah WPtel: [address] [place] [address] ACUTE ILLNESS 11/18/2015 Patient Education: Patient Medication Summary Completed 10/11/2015 Appointment: María Elena Appiah WPtel: [address] [place], [place] [phone] [place] INJECTION 10/07/2015 Patient Education: Patient Medication Summary Completed 10/07/2015 Visit Plan: Check renal arterial doppler s and ECHO Change amlodopine to lotrel 5/20mg q HS Will need stress test as well Check CMP, uric acid, ESR 10/06/2015 Appointment: María Elena Appiah WPtel: [address] [place] [address] ACUTE ILLNESS 10/06/2015 Patient Education: Patient Medication Summary Completed 10/06/2015 Patient Education: [facility] - Saving AutoInj - Amlodipine Besylate - 18-64 - Dynamic Portal ID Completed 10/06/2015 Appointment: María Elena Appiah WPtel: [address] [place] [address] FOLLOW UP 09/22/2015 Visit Plan: Cephalexin 500 mg PO bid Mery ly topical Mupirocin to lesions on left lateral neck and face Follow-up in one week. Sooner if symptoms worsen 09/14/2015 Appointment: June Flores WPtel: [address] [place] [address] ACUTE ILLNESS 09/14/2015 Patient Education: Patient Medication Summary Completed 09/14/2015 Visit Plan: Change bystolic to bedtime d osing and amlodopine to morning dosing Cryotherapy as above to AKs 09/07/2015 Appointment: María Elena Appiah WPtel: [address] [place], [place] [phone] 09/06 appointment made and confirmed ~ FOLLOW UP 09/07/2015 Patient Education: Patient Medication Summary Completed 09/07/2015 Visit Plan: Increase bystolic back to 20 mg daily but will split and take 10mg in AM and 10mg in PM Stress Reducers 08/18/2015 Appointment: María Elena Appiah WPtel: [address] [place] [address] 08/17/15 appt confirmed cn ACUTE ILLNESS 08/18 Patient Education: Patient Medication Summary Completed 08/18/2015 Appointment: María Elena Appiah WPtel: [address] [place] [address] BP CHECK 07/07/2015 Patient Education: Patient Medication Summary Completed 07/07/2015 Appointment: María Elena Appiah WPtel: [address] [place] [address] BP CHECK 06/24/2015 Patient Education: Patient Medication Summary Completed 06/24/2015 Appointment: María Elena Appiah WPtel: [address] [place] [address] BP CHECK 06/21/2015 Patient Education: Patient Medication Summary Completed 06/21/2015 Visit Plan: Lab discussed Continue curre nt meds and lifestyle modification Recheck lab in 6mos 06/16/2015 Appointment: María Elena Appiah WPtel: [address] [place] [address] 06/15 confirmed FOLLOW UP 06/16/2015 Patient Education: Patient Medication Summary Completed 06/16/2015 Patient Education: Patient Medication Summary Completed 06/15/2015 Visit Plan: Increase cymbalta to 60mg q HS Keep clonidine at current dose Recheck 2weeks Change xanax to klonopin 06/02/2015 Appointment: María Elena Appiah WPtel: [address] [place] [address] 06/02 lm FOLLOW UP 06/02/2015 Patient Education: Patient Medication Summary Completed 06/02/2015 Appointment: María Elena Appiah WPtel: [address] [place] [address] ACUTE ILLNESS 05/24/2015 Visit Plan: Increase clonidine to 0.2mg q HS Add cymbalta 30mg q HS Recheck 2weeks Stress Reducers Check fasting lab Discussed sleep study 05/20/2015 Appointment: María Elena Appiahtel: [address] [place] [address] ACUTE ILLNESS 05/20/2015 Patient Education: Patient Medication Summary Completed 05/20/2015 Patient Education: [facility] - Saving [employer] - Cymbalta - 18-64 - Dynamic Portal ID Completed 05/20/2015 Appointment: María Elena Appiah WPtel: [address] [place] [address] BP CHECK 05/19/2015 Patient Education: Patient Medication Summary Completed 05/19/2015 Visit Plan: Topical Bactroban alternatin g with topical betamethasone Recheck 2weeks 05/10/2015 Appointment: María Elena Appiah WPtel: [address] [place] [address] 05/07 vm cn...05/07 appt confirmed OFFICE SURGER Y 05/10/2015 Patient Education: Patient Medication Summary Completed 05/10/2015 [facility] [address] Referral Initiated 05/04/2015 Visit Plan: Saline nasal flushes prn. Ty lenol/Motrin prn headache. Notify if persists/symptoms worsening. Depomedrol 40mg IM today 03/16/2015 Appointment: María Elena Appiah WPtel: [address] [place] [address] ACUTE ILLNESS 03/16/2015 Patient Education: Patient Medication Summary Completed 03/16/2015 Appointment: María Elena Appiahtel: [address] [place] [address] ER Follow UP 03/09/2015 Visit Plan: Cryotherapy to lesions as ab ove 10/27/2014 Appointment: María Elena Appiah WPtel: [address] [place], [place] [id number] OFFICE SURGERY 10/27/2014 Patient Education: Patient Medication Summary Completed 10/27/2014 Appointment: June Flores WPtel: [address] [place] [address] ACUTE ILLNESS 09/11/2014 Patient Education: Patient Medication Summary Completed 09/11/2014 Visit Plan: Lab discussed Lipitor 10mg d aily Coenzyme Q-10 400mg daily Vitamin D3 5000u daily Recheck lipids with LFTs in 3mos then fwup 08/31/2014 Appointment: María Elena Appiah WPtel: [address] [place] [address] 08/28 voicenvil FOLLOW UP 08/31/2014 Patient Education: Patient Medication Summary Completed 08/31/2014 Appointment: María Elena Appiah WPtel: [address] [place] [address] US LAB 08/27/2014 Appointment: María Elena Appiah WPtel: [address] [place] [address] US LAB 08/27/2014 Patient Education: Patient Medication Summary Completed 08/27/2014 Appointment: María Elena Appiah WPtel: [address] [place] [address] ACUTE ILLNESS 07/23/2014 Appointment: María Elena Appiah WPtel: [address] [place] [address] ACUTE ILLNESS 07/21/2014 Patient Education: Patient Medication Summary Completed 07/21/2014 Visit Plan: Kenalog 40mg IM today Contin ue narendra and singulair Add Flonase 07/15/2014 Appointment: María Elena Appiah WPtel: [address] [place] [address] ACUTE ILLNESS 07/15/2014 Appointment: María Elena Appiah WPtel: [address] [place], [place] [phone] ACUTE ILLNESS 07/15/2014 Patient Education: Patient Medication Summary Completed 07/15/2014 Visit Plan: Will do metolazone 2.5mg prn with 6 potassium and see if causes as severe cramping Trial of of seroquel XR 50mg q PM with evening meal and let us know how works 05/18/2014 Appointment: María Elena Appiah WPtel: [address] [place], [place] [phone] 05/15 left message FOLLOW UP 05/18/2014 Patient Education: Patient Medication Summary Completed 05/18/2014 Appointment: María Elena Appiah WPtel: [address] [place], [place] [phone] LAB 05/14/2014 Patient Education: Patient Medication Summary Completed 05/14/2014 Appointment: María Elena Appiah WPtel: [address] [place] [phone] [place] INJECTION 04/22/2014 Visit Plan: Tisha and Miranda today a nd finish abx given from urgent care 04/21/2014 Appointment: María Elena Appiah WPtel: [address] [place] [phone] [place] INJECTION 04/21/2014 Patient Education: Patient Medication Summary Completed 04/21/2014 Appointment: June Flores WPtel: [address] [place], [place] [phone] ACUTE ILLNESS 03/04/2014 Patient Education: Patient Medication Summary Completed 03/04/2014 Appointment: María Elena Appiah WPtel: [address] [place] [phone] [place] INJECTION 02/27/2014 Patient Education: Patient Medication Summary Completed 02/27/2014 Visit Plan: Cryotherapy as above to all lesions Patient wants to try no meds for insomnia for a while and see how goes 01/13/2014 Appointment: María Elena Appiah WPtel: [address] [place] [phone] OFFICE SURGERY 01/13/2014 Patient Education: Patient Medication Summary Completed 01/13/2014 Visit Plan: Stop Melatonin Stop Soma Tri al of trazadone 75mg q HS See ENT for possible tubes as has had chronic ETD and serous otitis media with numerous steroids 12/24/2013 Appointment: María Elena Appiah WPtel: [address] [place] [address] ACUTE ILLNESS 12/24/2013 Patient Education: Patient Medication Summary Completed 12/24/2013 Visit Plan: Saline nasal flushes prn. Ty lenol/Motrin prn headache. Notify if persists/symptoms worsening. 11/12/2013 Appointment: María Elena Appiah WPtel: [address] [place] [address] ACUTE ILLNESS 11/12/2013 Patient Education: Patient Medication Summary Completed 11/12/2013 Appointment: María Elena Appiah WPtel: [address] [place] [address] ACUTE ILLNESS 10/21/2013 Patient Education: Patient Medication Summary Completed 10/21/2013 Visit Plan: Sleep hygiene and sleep rout ine Melatonin 10mg q HS Support stockings and observe 09/22/2013 Appointment: María Elena Appiah WPtel: [address] [place] [address] ACUTE ILLNESS 09/22/2013 Patient Education: Patient Medication Summary Completed 09/22/2013 Appointment: June Flores WPtel: [address] [place] [address] ACUTE ILLNESS 08/27/2013 Patient Education: Patient Medication Summary Completed 08/27/2013 Visit Plan: Proceed with CT scan of head /neck Proceed with occipital nerve injections Butrans 20mcg patch weekly until can get into see Dr. Mcdonough for injections 08/04/2013 Appointment: María Elena Appiah WPtel: [address] [place] [address] FOLLOW UP 08/04/2013 Patient Education: Patient Medication Summary Completed 08/04/2013 Visit Plan: OMT done Daily neck stretche s, moist heat Increase Celebrex to 200mg BID Add flexeril 07/23/2013 Appointment: María Elena Appiah WPtel: [address] [place] [address] 07/22 voicemail FOLLOW UP 07/23/2013 Patient Education: Patient Medication Summary Completed 07/23/2013 Appointment: María Elena Appiah WPtel: [address] [place] [address] ACUTE ILLNESS 06/23/2013 Patient Education: Patient Medication Summary Completed 06/23/2013 Appointment: María Elena Appiah WPtel: [address] [place] [address] ACUTE ILLNESS 05/26/2013 Patient Education: Patient Medication Summary Completed 05/26/2013 Visit Plan: Decrease clonidine to 0.1mg TID If BP remains stable consider decreasing amlodopine Prednisone for 5 days BP check in 1mo 04/16/2013 Appointment: María Elena Appiah WPtel: [address] [place] [address] 04/14 pt called and confirmed appt FOLLOW UP 04/16/2013 Patient Education: Patient Medication Summary Completed 04/16/2013 Appointment: María Elena Appiah WPtel: [address] [place] [address] ACUTE ILLNESS 03/05/2013 Patient Education: Patient Medication Summary Completed 03/05/2013 Visit Plan: Pt has MARIA ELENA on with Dr. Sharonda Arita Butrans patch Refill Hydrocodone early tomorrow 12/23/2012 Appointment: María Elena Appiah WPtel: [address] [place] [address] FOLLOW UP 12/23/2012 Patient Education: Patient Medication Summary Completed 12/23/2012 Appointment: Lashawn Eckert WPtel: [address] [place] [address] ACUTE ILLNESS 12/16/2012 Patient Education: Patient Medication Summary Completed 12/16/2012 Visit Plan: Proceed with updated MRI of LS spine Continue gabapentin and add soma and diclofenac Will likely need to go for another epidural 12/09/2012 Appointment: María Elena Appiah WPtel: [address] [place] [address] ACUTE ILLNESS 12/09/2012 Patient Education: Patient Medication Summary Completed 12/09/2012 Visit Plan: Injection as above Finish me drol dose pack Chiropracter this afternoon 12/04/2012 Appointment: Maraí Elena Appiah WPtel: [address] [place] [address] ACUTE ILLNESS 12/04/2012 Patient Education: Patient Medication Summary Completed 12/04/2012 Appointment: Mary Tillman WPtel: [address] [place] [address] FOLLOW UP 11/22/2012 Patient Education: Patient Medication Summary Completed 11/22/2012 Appointment: María Elena Appiah WPtel: [address] [place] [address] ACUTE ILLNESS 11/21/2012 Patient Education: Patient Medication Summary Completed 11/21/2012 Appointment: María Elena Appiah WPtel: [address] [place] [address] BP CHECK 11/07/2012 Patient Education: Patient Medication Summary Completed 11/07/2012 Visit Plan: reports extra clonidine and extra amlodipine and extra alprazalam. extra Ketolorac and promethazine last night. Bystolic 10 mg QAM and will continue all other blood pressure meds. Pt. encouraged to rest and hydrate. Discussed stroke and SD symptoms. Pt. instructed to seek ER eval if symptoms worsen or headache persists. Pt. agrees to ER eval/EMS transport if symptoms worsen. BP re-check. 10/29/2012 Appointment: Lashawn Eckert WPtel: [address] [place] [address] ACUTE ILLNESS 10/29/2012 Patient Education: Patient Medication Summary Completed 10/29/2012 Appointment: María Elena Appiah WPtel: [address] [place], [place] [phone] ACUTE ILLNESS 10/14/2012 Patient Education: Patient Medication Summary Completed 10/14/2012 Appointment: María Elena Appiah WPtel: [address] [place], [place] [phone] UA 09/27/2012 Patient Education: Patient Medication Summary Completed 09/27/2012 Appointment: María Elena Appiah WPtel: [address] [place], [place] [phone] ACUTE ILLNESS 09/25/2012 Patient Education: Patient Medication Summary Completed 09/25/2012 Appointment: María Elena Appiah WPtel: [address] [place], [place] [phone] BP CHECK 09/24/2012 Appointment: María Elena Appiah WPtel: [address] [place], [place] [phone] ACUTE ILLNESS 08/29/2012 Patient Education: Patient Medication Summary Completed 08/29/2012 Visit Plan: Cryotherapy as above See Karlos m for right ear lesion--probable MOHs procedure Increase amlodopine to 10mg daily 08/12/2012 Appointment: María Elena Appiah WPtel: [address] [place] [phone] OFFICE SURGERY 08/12/2012 Patient Education: Patient Medication Summary Completed 08/12/2012 Appointment: María Elena Appiah WPtel: [address] [place], [place] [phone] 05/03 vm on pt phone...pt called on 04/11 3 pt called wanting in had no one cancel so could not get her in for an appt sooner than 05/06. ACUTE ILLNESS 05/06/2012 Patient Education: Patient Medication Summary Completed 05/06/2012 Visit Plan: Pt wants to hold on any furt her sleep medications 04/03/2012 Appointment: María Elena Appiah WPtel: [address] [place] [address] US FOLLOW UP 04/03/2012 Patient Education: Patient Medication Summary Completed 04/03/2012 Appointment: María Elena Appiah WPtel: [address] [place] [address] [place] FOLLOW UP 03/19/2012 Patient Education: Patient Medication Summary Completed 03/19/2012 Appointment: María Elena Appiah WPtel: [address] [place] [address] BP CHECK 02/22/2012 Patient Education: Patient Medication Summary Completed 02/22/2012 Appointment: María Elena Appiah WPtel: [address] [place] [address] BP CHECK 02/21/2012 Patient Education: Patient Medication Summary Completed 02/21/2012 Visit Plan: Doxycycline and bactroban fo r foot Supportive care on ankles and knees Add norvasc for BP 02/20/2012 Appointment: María Elena Appiah WPtel: [address] [place] [address] ER Follow UP 02/20/2012 Patient Education: Patient Medication Summary Completed 02/20/2012 Appointment: María Elena Appiah WPtel: [address] [place] [address] ACUTE ILLNESS 01/30/2012 Patient Education: Patient Medication Summary Completed 01/30/2012 Appointment: María Elena Appiah WPtel: [address] [place] [address] ACUTE ILLNESS 01/24/2012 Patient Education: Patient Medication Summary Completed 01/24/2012 Visit Plan: Daily back stretches, moist heat, Biofreeze prn OMT done 01/10/2012 Appointment: María Elena Appiah WPtel: [address] [place] [address] ACUTE ILLNESS 01/10/2012 Patient Education: Patient Medication Summary Completed 01/10/2012 Appointment: María Elena Appiah WPtel: [address] [place] [address] FOLLOW UP 12/11/2011 Patient Education: Patient Medication Summary Completed 12/11/2011 Appointment: María Elena Appiah WPtel: [address] [place] [address] ACUTE ILLNESS 11/09/2011 Patient Education: Patient Medication Summary Completed 11/09/2011 Appointment: María Elena Appiah WPtel: [address] [place] [address] ACUTE ILLNESS 09/13/2011 Patient Education: Patient Medication Summary Completed 09/13/2011 Visit Plan: Check CBC, TSH, Free T4, CMP , ESR, Vit D, B12 now Start Prednisone today 08/31/2011 Appointment: María Elena Appiahtel: [address] [place] [address] ACUTE ILLNESS 08/31/2011 Patient Education: Patient Medication Summary Completed 08/31/2011 Appointment: María Elena Appiahtel: [address] [place] [address] [place] INJECTION 07/20/2011 Patient Education: Patient Medication Summary Completed 07/20/2011 Visit Plan: Continue current meds Monite r BP Cont stretches from PT 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 07/06/2011 Appointment: María Elena Appiahtel: [address] [place] [address] FOLLOW UP 07/06/2011 Patient Education: Patient Medication Summary Completed 07/06/2011 Appointment: María Elena Appiah WPtel: [address] [place] [address] BP CHECK 06/06/2011 Patient Education: Patient Medication Summary Completed 06/06/2011 Visit Plan: Add Bystolic at 2.5mg QAM Ad d Robaxin 750mg 2 po q HS BP check in 2wks 05/22/2011 Appointment: María Elena Appiah WPtel: [address] [place], [place] [phone] [place] FOLLOW UP 05/22/2011 Patient Education: Patient Medication Summary Completed 05/22/2011 Appointment: María Elena Appiah WPtel: [address] [place], [place] [id number] ER Follow UP 05/09/2011 Patient Education: Patient Medication Summary Completed 05/09/2011 Appointment: María Elena Appiah WPtel: [address] [place], [place] [phone] FOLLOW UP 02/22/2011 Visit Plan: Rx written for Hydrocodone 1 0/325mg #240 See Ortho 02/14/2011 Appointment: María Elena Appiah WPtel: [address] [place], [place] [phone] OMT 02/14/2011 Patient Education: Patient Medication Summary [...] lab work. 02/03/2011 Appointment: Lashawn Eckert WPtel: [address] [place], [place] [phone] ACUTE ILLNESS 02/03/2011 Patient Education: Patient Medication Summary Completed 02/03/2011 Visit Plan: OMT done Cont daily stretche s 01/31/2011 Appointment: María Elena Appiah WPtel: [address] [place], [place] [phone] ACUTE ILLNESS 01/31/2011 Patient Education: Patient Medication Summary Completed 01/31/2011 Visit Plan: Continue pain meds OMT done Proceed with PT No work this summer01/25/2011 Appointment: María Elena Appiahtel: [address] [place] [address] ACUTE ILLNESS 01/25/2011 Patient Education: Patient Medication Summary Completed 01/25/2011 Visit Plan: Start PT Long discussion abo ut getting pain meds from only us and can only have max of 4grams of tylenol per day Change to Hydrocodone 10/325mg 1- 2 po TID prn pain--#180 called to [facility] 01/18/2011 Appointment: María Elena Appiahtel: [address] [place] [address] FOLLOW UP 01/18/2011 Patient Education: Patient Medication Summary Completed 01/18/2011 Visit Plan: Daily back stretches, moist heat, Biofreeze prn 11/29/2010 Appointment: María Elena Appiahtel: [address] [place] [address] ER Follow UP 11/29/2010 Patient Education: Patient Medication Summary Completed 11/29/2010 Visit Plan: Saline nasal flushes prn. Ty lenol/Motrin prn headache. Notify if persists/symptoms worsening. Finish augmentin Add Medrol Dose Pack 10/10/2010 Appointment: María Elena Appiahtel: [address] [place], [place] [phone] ACUTE ILLNESS 10/10/2010 Patient Education: Patient Medication Summary Completed 10/10/2010 Visit Plan: Cryotherapy x3 to multiple l esions on both forearms 07/19/2010 Appointment: María Elena Appiahtel: [address] [place], [place] [id number] OFFICE SURGERY 07/19/2010 Patient Education: Patient Medication Summary Completed 07/19/2010 Appointment: María Elena Appiahtel: [address] [place], [place] [id number] BP CHECK 07/06/2010 Patient Education: Patient Medication Summary Completed 07/06/2010 Appointment: María Elena Appiah WPtel: [address] [place] [address] BP CHECK 06/30/2010 Patient Education: Patient Medication Summary Completed 06/30/2010 Appointment: María Elena Appiah WPtel: [address] [place] [address] BP CHECK 06/20/2010 Patient Education: Patient Medication Summary Completed 06/20/2010 Visit Plan: Change Diovan to Exforge 160 /5mg QD OMT done to thoracics BP check in 2wks 06/07/2010 Appointment: María Elena Appiah WPtel: [address] [place] [address] FOLLOW UP 06/07/2010 Patient Education: Patient Medication Summary Completed 06/07/2010 Appointment: María Elena Appiah WPtel: [address] [place] [address] BP CHECK 06/03/2010 Patient Education: Patient Medication Summary Completed 06/03/2010 Appointment: María Elena Appiah WPtel: [address] [place] [address] BP CHECK 06/01/2010 Patient Education: Patient Medication Summary Completed 06/01/2010 Visit Plan: Irritated skin tags to left neck x2 excised at base with scissors and base cauterized 05/30/2010 Appointment: María Elena Appiah WPtel: [address] [place] [address] OFFICE SURGERY 05/30/2010 Patient Education: Patient Medication Summary Completed 05/30/2010 Visit Plan: Saline nasal flushes prn. Ty lenol/Motrin prn headache. Notify if persists/symptoms worsening. Restart Nasonex Has allergy testing set for May 25 04/27/2010 Appointment: María Elena Appiah WPtel: [address] [place] [address] [place] ACUTE ILLNESS 04/27/2010 Patient Education: Patient Medication Summary Completed 04/27/2010 Visit Plan: Saline nasal flushes prn. Ty lenol/Motrin prn headache. Notify if persists/symptoms worsening. Omnaris BID plus injections 04/05/2010 Appointment: María Elena Appiah WPtel: [address] [place] [address] ACUTE ILLNESS 04/05/2010 Patient Education: Patient Medication Summary Completed 04/05/2010 Visit Plan: Saline nasal flushes prn. Ty lenol/Motrin prn headache. Notify if persists/symptoms worsening. 03/09/2010 Appointment: María Elena Appiah WPtel: [address] [place] [address] ACUTE ILLNESS 03/09/2010 Patient Education: Patient Medication Summary Completed 03/09/2010 Visit Plan: Cont Clonidine as is Cont Pr emarin Fwup with surgery as scheduled 03/03/2010 Appointment: María Elena Appiah WPtel: [address] [place] [address] FOLLOW UP 03/03/2010 Patient Education: Patient Medication Summary Completed 03/03/2010 Visit Plan: Check Pelvic US now Dukee tacho Sal C vs Hysterectomy 01/17/2010 Appointment: María Elena Appiahtel: [address] [place] [address] ACUTE ILLNESS 01/17/2010 Patient Education: Patient Medication Summary Completed 01/17/2010 Visit Plan: Check fasting lab and schedu le Mammogram 2gm Na Diet Trial of Ambien 10mg qhs Fwup pending lab results 12/27/2009 Appointment: María Elena Appiah WPtel: [address] [place] [address] [place] ESTABLISHED PATIENT 12/27/2009 Patient Education: Patient Medication Summary Completed 12/27/2009 Referral: Canelo Overton WPtel: [address] [place] [address] [place] Referral Initiated Referral: Philipp Flores WPtel: [address] [id number] [place] Referral Appointment Requested Instructions Comment . [...] HS . No steroid or rocephin injection moseh avila Can have oral prednisone Continue current [...] to rest and hydrate. Discussed stroke and SD symptoms. Pt. instructed to seek ER eval [...]
--- OUTSIDE RECORDS SUMMARY | 2020-03-13 04:47 | XMS REPORT | CCD ---
Author Author Gale Appiah D.O. Organization [facility] Address [address] [place] [id number] Phone Care Team Providers Care [employer] Operator Name Role Phone María Elena Appiah D.O., PP Unavailable CCM Unavailable Summary Purpose Interface Exchange Insurance Providers Payer name Policy type / Coverage type Covered republican ID Effective Begin Date Effective End Date [facility] Commercial Insurance [id number] Unknown Family History Family History data not found Social History Social History Element Codes Description Effective Dates Tobacco history SNOMED CT: 164267128 Never smoker 05/22/2011 Allergies, Adverse Reactions, Alerts [...] Fill Instructions Januvia 100 mg tablet RxNorm: 450630 TAKE ONE TABLET BY MOUTH DAILY 01/22/2020 No Stop Date Active gabapentin 300 mg capsule RxNorm: 517880 TAKE ONE CAPSU LE BY MOUTH EVERY NIGHT AT BEDTIME 01/22/2020 No Stop Date Active allopurinol 300 mg tablet RxNorm: 686530 TAKE ONE TABLET BY LOPEZ TH DAILY 01/22/2020 No Stop Date Active Klor-Con 8 mEq tablet,extended release RxNorm: 052852 T FARRUKH ONE TABLET BY MOUTH TWICE A DAY 01/22/2020 No Stop Date Active doxepin 25 mg capsule RxNorm: 1102804 TAKE ONE CAPSULE B Y MOUTH EVERY NIGHT AT BEDTIME NEEDED FOR SLEEP 01/22/2020 No Stop Date Active glimepiride 4 mg tablet RxNorm: 305112 1 Tablet(s) Oral two times a day replaces 2mg dose 01/13/2020 04/12/2020 Active lisinopril 40 mg tablet RxNorm: 313912 1 Tablet(s) Oral QD repl aces 20mg dose 01/13/2020 04/12/2020 Active hydrocodone 10 mg-acetaminophen 325 mg tablet RxNorm: 015862 1-2 Tablet(s) Oral three times a day as needed for pain 01/12/2020 No Stop Date Active cyclobenzaprine 10 mg tablet RxNorm: 039076 TAKE ONE TA BLET BY MOUTH THREE TIMES A DAY NEEDED FOR MUSCLE SPASMS 01/05/2020 No Stop Date Active triamterene 75 mg-hydrochlorothiazide 50 mg tablet RxNorm: 3 35622 TAKE ONE TABLET BY MOUTH DAILY 12/29/2019 No Stop Date Active Klor-Con 8 mEq tablet,extended release RxNorm: 686294 T FARRUKH ONE TABLET BY MOUTH TWICE A DAY 12/19/2019 01/21/2020 Inactive allopurinol 300 mg tablet RxNorm: 671496 TAKE ONE TABLET BY LOPEZ TH DAILY 12/19/2019 01/21/2020 Inactive glimepiride 2 mg tablet RxNorm: 033565 TAKE ONE TABLET BY MOUTH TWICE A DAY 12/19/2019 01/12/2020 Inactive hydrocodone 10 mg-acetaminophen 325 mg tablet RxNorm: 464681 1-2 Tablet(s) Oral three times a day as needed for pain 12/10/2019 01/11/2020 Inactive Januvia 100 mg tablet RxNorm: 486886 1 Tablet(s) Oral QD 11/20/2019 0 11/20/2019 Inactive glimepiride 2 mg tablet RxNorm: 982248 1 Tablet(s) Oral two sawyer es a day 11/20/2019 12/18/2019 Inactive cyclobenzaprine 10 mg tablet RxNorm: 891926 TAKE ONE TA BLET BY MOUTH THREE TIMES A DAY NEEDED FOR MUSCLE SPASMS 11/17/2019 01/04/2020 Inactive doxepin 25 mg capsule RxNorm: 5425237 TAKE ONE CAPSULE B Y MOUTH EVERY NIGHT AT BEDTIME NEEDED FOR SLEEP 11/16/2019 01/21/2020 Inactive Klor-Con 8 mEq tablet,extended release RxNorm: 652752 T FARRUKH ONE TABLET BY MOUTH TWICE A DAY 11/16/2019 12/18/2019 Inactive hydrocodone 10 mg-acetaminophen 325 mg tablet RxNorm: 106189 1-2 Tablet(s) Oral three times a day as needed for pain 11/10/2019 12/09/2019 Inactive cyclobenzaprine 10 mg tablet RxNorm: 138753 TAKE ONE TA BLET BY MOUTH THREE TIMES A DAY NEEDED FOR MUSCLE SPASMS 10/23/2019 11/16/2019 Inactive duloxetine 60 mg capsule,delayed release RxNorm: 714308 1 Capsu le(s) Oral QD 10/17/2019 04/13/2020 Active celecoxib 200 mg capsule RxNorm: 268401 1 Capsule(s) Or al two times a day as needed for pain 10/17/2019 01/14/2020 Inactive Singulair 10 mg tablet RxNorm: 032709 1 Tablet(s) Oral QD 10/17/2019 04/14/2020 Active metoprolol tartrate 100 mg tablet RxNorm: 878964 1 Tabl et(s) Oral two times a day 10/17/2019 04/13/2020 Active clonidine HCl 0.1 mg tablet RxNorm: 361757 1 Tablet(s) Oral fou r times a day 10/17/2019 04/13/2020 Active Lipitor 10 mg tablet RxNorm: 855062 1 Tablet(s) Oral QD 10/17/2019 Inactive Steglatro 15 mg tablet RxNorm: 9220673 1 Tablet(s) Oral QD 10/17/19 No Stop Date Active lisinopril 20 mg tablet RxNorm: 170891 1 Tablet(s) Oral QD 10/17/19 20 01/12/2020 Inactive gabapentin 300 mg capsule RxNorm: 873807 1 Capsule(s) O ral every night at bedtime 10/17/2019 01/15/2020 Inactive Klor-Con 8 mEq tablet,extended release RxNorm: 735747 1 Tablet(s) Oral two times a day 10/17/2019 11/15/2019 Inactive Januvia 100 mg tablet RxNorm: 880655 1 Tablet(s) Oral QD 10/17/2019 0 01/12/2020 Inactive Glyxambi 25 mg-5 mg tablet RxNorm: 4721483 1 Tablet(s) Oral QD 01/202010/16/2019 Inactive Patient will bring in copay discount card as well Glyxambi 25 mg-5 mg tablet RxNorm: 9331054 1 Tablet(s) Oral QD 01/202010/14/2019 Inactive Patient will bring in copay discount card as well Keflex 500 mg capsule RxNorm: 498163 1 Capsule(s) Oral two time s a day 10/07/2019 10/14/2019 Inactive Premarin 1.25 mg tablet RxNorm: 202614 1 Tablet(s) Oral QD 09/30/19 20 06/25/2020 Active hydrocodone 10 mg-acetaminophen 325 mg tablet RxNorm: 170732 1-2 Tablet(s) Oral three times a day as needed for pain 09/30/2019 09/30/2019 Inactive baclofen 10 mg tablet RxNorm: 168614 TAKE ONE TABLET BY MOUTH THREE TIMES A DAY NEEDED 09/19/2019 No Stop Date Active gabapentin 300 mg capsule RxNorm: 427683 TAKE ONE CAPSU LE BY MOUTH EVERY NIGHT AT BEDTIME 09/19/2019 10/16/2019 Inactive Klor-Con 8 mEq tablet,extended release RxNorm: 971921 T FARRUKH ONE TABLET BY MOUTH TWICE A DAY 1 Tablet(s) Oral two times a day 09/19/2019 10/16/2019 [place] [facility] hydrocodone 10 mg-acetaminophen 325 mg tablet RxNorm: 957806 1-2 Tablet(s) Oral three times a day as needed for pain 09/19/2019 09/29/2019 Inactive duloxetine 60 mg capsule,delayed release RxNorm: 754634 TAKE ONE CAPSULE BY MOUTH DAILY 09/11/2019 10/16/2019 Inactive Lipitor 10 mg tablet RxNorm: 480370 TAKE ONE TABLET BY MOUTH AT BEDTIME 09/11/2019 10/16/2019 Inactive lisinopril 20 mg tablet RxNorm: 426582 TAKE ONE TABLET BY MOUTH DAILY .... THIS REPLACE 10MG TABLETS 09/11/2019 10/16/2019 Inactive triamterene 75 mg-hydrochlorothiazide 50 mg tablet RxNorm: 3 08903 TAKE ONE TABLET BY MOUTH DAILY 09/11/2019 12/28/2019 Inactive allopurinol 300 mg tablet RxNorm: 894325 TAKE ONE TABLET BY LOPEZ TH DAILY 09/11/2019 12/18/2019 Inactive celecoxib 200 mg capsule RxNorm: 064051 TAKE ONE CAPSUL E BY MOUTH TWICE A DAY NEEDED FOR PAIN 09/11/2019 10/16/2019 Inactive clonidine HCl 0.1 mg tablet RxNorm: 063164 TAKE ONE TAB LET BY MOUTH FOUR TIMES A DAY 09/11/2019 10/16/2019 Inactive doxepin 25 mg capsule RxNorm: 7682267 1 Capsule(s) Oral every night at bedtime as needed for sleep 08/21/2019 11/15/2019 Inactive hydrocodone 10 mg-acetaminophen 325 mg tablet RxNorm: 856295 1-2 Tablet(s) PO TID 08/12/2019 09/29/2019 Inactive as needed for pa in - Previous quantity #240, will start dosing for #180 in April 2011 per Doctor Td. Medrol (Dustin) 4 mg tablets in a dose pack RxNorm: 990215 Tablet(s) Oral As Directed 07/21/2019 09/29/2019 Inactive Premarin 1.25 mg tablet RxNorm: 206401 1 Tablet(s) Oral QD 07/02/2009/29/2019 Inactive hydrocodone 10 mg-acetaminophen 325 mg tablet RxNorm: 942260 1-2 Tablet(s) PO TID 07/01/2019 08/11/2019 Inactive as needed for pa in - Previous quantity #240, will start dosing for #180 in April 2011 per Doctor Appiah. gabapentin 300 mg capsule RxNorm: 282490 1 Capsule(s) PO QHS 201809/18/2019 Inactive celecoxib 200 mg capsule RxNorm: 752407 1 Capsule(s) Or al two times a day as needed for pain 06/27/2019 06/27/2019 Inactive doxepin 25 mg capsule RxNorm: 2944046 TAKE ONE CAPSULE B Y MOUTH EVERY NIGHT AT BEDTIME NEEDED FOR SLEEP 06/24/2019 08/20/2019 Inactive Singulair 10 mg tablet RxNorm: 089024 TAKE ONE TABLET BY MOUTH JOSÉ Y 06/24/2019 10/16/2019 Inactive furosemide 40 mg tablet RxNorm: 652051 TAKE ONE TABLET BY MOUTH EVERY MORNING NEEDED FOR EDEMA . TAKE WITH POTASSIUM 06/24/2019 01/12/2020 Inactive lisinopril 20 mg tablet RxNorm: 786316 TAKE ONE TABLET BY MOUTH DAILY .... THIS REPLACE 10MG TABLETS 06/24/2019 09/10/2019 Inactive nystatin-triamcinolone 100,000 unit/g-0.1 % topical cream Rx Norm: 9361078 1 Application Topical two times a day 06/12/2019 06/19/2019 Inactive apply BID for 1 week nystatin-triamcinolone 100,000 unit/g-0.1 % topical cream Rx Norm: 6287321 1 Application Topical two times a day 06/12/2019 06/11/2019 Inactive apply BID for 1 week hydrocodone 10 mg-acetaminophen 325 mg tablet RxNorm: 254729 1-2 Tablet(s) PO QID as needed for pain MUST LAST 30 DAYS 05/28/2019 06/26/2019 Inactiv e (Response to an electronic controlled substance refill request - RxReferenceNumber: [id number]) baclofen 20 mg tablet RxNorm: 437831 1 Tablet(s) PO TID as needed for muscle spasm 05/19/2019 05/27/2019 Inactive gabapentin 300 mg capsule RxNorm: 006931 1 Capsule(s) PO QHS 201805/27/2019 Inactive lisinopril 20 mg tablet RxNorm: 798563 1 Tablet(s) PO Q D TAKE ONE TABLET BY MOUTH DAILY, REPLACES 10 MG DOSE 05/19/2019 06/23/2019 Inactive doxepin 25 mg capsule RxNorm: 6966966 TAKE ONE CAPSULE B Y MOUTH EVERY NIGHT AT BEDTIME NEEDED FOR SLEEP 05/16/2019 06/14/2019 Inactive lisinopril 20 mg tablet RxNorm: 868330 TAKE ONE TABLET BY MOUTH DAILY, REPLACES 10 MG DOSE 05/16/2019 05/18/2019 Inactive Singulair 10 mg tablet RxNorm: 907678 TAKE ONE TABLET BY MOUTH JOSÉ Y 05/16/2019 06/14/2019 Inactive gabapentin 300 mg capsule RxNorm: 067260 1 Capsule(s) PO QHS 201805/04/2019 Inactive estropipate 1.5 mg tablet RxNorm: 470288 1 Tablet(s) PO QD 05/05/2005/27/2019 Inactive estropipate 1.5 mg tablet RxNorm: 823376 1 Tablet(s) PO QD 05/05/2005/04/2019 Inactive gabapentin 300 mg capsule RxNorm: 941507 1 Capsule(s) PO QHS 201805/18/2019 Inactive hydrocodone 10 mg-acetaminophen 325 mg tablet RxNorm: 752749 1-2 Tablet(s) PO QID as needed for pain MUST LAST 30 DAYS 04/25/2019 05/24/2019 Inactiv e (Response to an electronic controlled substance refill request - RxReferenceNumber: [id number]) cyclobenzaprine 10 mg tablet RxNorm: 554805 TAKE ONE TA BLET BY MOUTH THREE TIMES A DAY NEEDED FOR MUSCLE SPASMS 04/24/2019 05/18/2019 Inactive metoprolol tartrate 100 mg tablet RxNorm: 378535 TAKE O NE TABLET BY MOUTH TWICE A DAY 04/24/2019 10/16/2019 Inactive Lyrica 75 mg capsule RxNorm: 042296 1 Capsule(s) PO QHS 03/25/2019 Inactive duloxetine 60 mg capsule,delayed release RxNorm: 096896 TAKE ONE CAPSULE BY MOUTH DAILY 03/21/2019 05/19/2019 Inactive triamterene 75 mg-hydrochlorothiazide 50 mg tablet RxNorm: 3 37345 TAKE ONE TABLET BY MOUTH DAILY 03/21/2019 05/19/2019 Inactive Klor-Con 8 mEq tablet,extended release RxNorm: 613683 T FARRUKH ONE TABLET BY MOUTH TWICE A DAY 03/21/2019 09/18/2019 Inactive Lipitor 10 mg tablet RxNorm: 210138 TAKE ONE TABLET BY MOUTH AT BEDTIME 03/21/2019 09/10/2019 Inactive clonidine HCl 0.1 mg tablet RxNorm: 115379 TAKE ONE TAB LET BY MOUTH FOUR TIMES A DAY 03/21/2019 05/19/2019 Inactive allopurinol 300 mg tablet RxNorm: 876760 TAKE ONE TABLET BY LOPEZ TH DAILY 03/21/2019 05/19/2019 Inactive hydrocodone 10 mg-acetaminophen 325 mg tablet RxNorm: 181896 1-2 Tablet(s) PO QID as needed for pain MUST LAST 30 DAYS 02/28/2019 03/29/2019 Inactiv e (Response to an electronic controlled substance refill request - RxReferenceNumber: [id number]) furosemide 40 mg tablet RxNorm: 986926 TAKE ONE TABLET BY MOUTH EVERY MORNING NEEDED FOR EDEMA . TAKE WITH POTASSIUM 02/21/2019 03/22/2019 Inactive cyclobenzaprine 10 mg tablet RxNorm: 626281 TAKE ONE TA BLET BY MOUTH THREE TIMES A DAY NEEDED FOR MUSCLE SPASMS 02/21/2019 04/21/2019 Inactive lisinopril 20 mg tablet RxNorm: 402810 TAKE ONE TABLET BY MOUTH DAILY, REPLACES 10 MG DOSE 02/21/2019 05/15/2019 Inactive doxepin 25 mg capsule RxNorm: 3413649 TAKE ONE CAPSULE B Y MOUTH EVERY NIGHT AT BEDTIME NEEDED FOR SLEEP 02/21/2019 05/15/2019 Inactive nystatin 100,000 unit/gram topical cream RxNorm: 847474 APPLY TO AFFECTED AREA(S) TWO TIMES A DAY 02/21/2019 03/22/2019 Inactive estradiol 1 mg tablet RxNorm: 728136 2 Tablet(s) PO QD replaces premarin 01/22/2019 05/04/2019 Inactive lisinopril 20 mg tablet RxNorm: 783876 TAKE ONE TABLET BY MOUTH DAILY, REPLACES 10 MG DOSE 01/20/2019 02/18/2019 Inactive cyclobenzaprine 10 mg tablet RxNorm: 660170 TAKE ONE TA BLET BY MOUTH THREE TIMES A DAY NEEDED FOR MUSCLE SPASMS 01/20/2019 02/18/2019 Inactive metoprolol tartrate 100 mg tablet RxNorm: 456837 TAKE O NE TABLET BY MOUTH TWICE A DAY 01/20/2019 02/18/2019 Inactive cyclobenzaprine 10 mg tablet RxNorm: 499004 TAKE ONE TA BLET BY MOUTH THREE TIMES A DAY NEEDED FOR MUSCLE SPASMS 12/19/2018 01/17/2019 Inactive lisinopril 20 mg tablet RxNorm: 772734 TAKE ONE TABLET BY MOUTH DAILY, REPLACES 10 MG DOSE 12/19/2018 01/17/2019 Inactive duloxetine 60 mg capsule,delayed release RxNorm: 253660 TAKE ONE CAPSULE BY MOUTH DAILY 12/19/2018 01/17/2019 Inactive Lipitor 10 mg tablet RxNorm: 297067 TAKE ONE TABLET BY MOUTH AT BEDTIME 12/19/2018 01/17/2019 Inactive cyclobenzaprine 10 mg tablet RxNorm: 609450 1 Tablet(s) PO TID as needed for muscle spasm 11/19/2018 12/18/2018 Inactive Singulair 10 mg tablet RxNorm: 367112 1 Tablet(s) PO QD 11/19/2018 Inactive lisinopril 20 mg tablet RxNorm: 657597 TAKE ONE TABLET BY MOUTH DAILY, REPLACES 10 MG DOSE 11/15/2018 12/18/2018 Inactive hydrocodone 10 mg-acetaminophen 325 mg tablet RxNorm: 766692 1-2 Tablet(s) PO QID as needed for pain MUST LAST 30 DAYS 11/13/2018 12/12/2018 Inactiv e (Response to an electronic controlled substance refill request - RxReferenceNumber: [id number]) nystatin 100,000 unit/gram topical cream RxNorm: 381173 APPLY TO AFFECTED AREA(S) TWO TIMES A DAY 10/23/2018 11/06/2018 Inactive lisinopril 20 mg tablet RxNorm: 845548 1 Tablet(s) PO QD replac es 10mg dose 10/18/2018 11/14/2018 Inactive hydrocodone 10 mg-acetaminophen 325 mg tablet RxNorm: 181703 1-2 Tablet(s) QID as needed for pain MUST LAST 30 DAYS 10/08/2018 11/06/2018 Inactive (Response to an electronic controlled substance refill request - RxReferenceNumber: [id number]) lisinopril 10 mg tablet RxNorm: 985603 1 Tablet(s) PO QD 10/03/2018 0 01/21/2019 Inactive Celebrex 200 mg capsule RxNorm: 059923 TAKE ONE CAPSULE BY MOUT H TWICE A DAY 09/30/2018 05/04/2019 Inactive cyclobenzaprine 10 mg tablet RxNorm: 848369 TAKE ONE TA BLET BY MOUTH THREE TIMES A DAY NEEDED FOR MUSCLE SPASMS 09/30/2018 11/18/2018 Inactive doxepin 25 mg capsule RxNorm: 2637201 TAKE ONE CAPSULE B Y MOUTH EVERY NIGHT AT BEDTIME NEEDED 09/05/2018 10/16/2018 Inactive omeprazole 40 mg capsule,delayed release RxNorm: 273880 TAKE ONE CAPSULE BY MOUTH DAILY 09/05/2018 01/21/2019 Inactive furosemide 40 mg tablet RxNorm: 706418 TAKE ONE TABLET BY MOUTH EVERY MORNING NEEDED FOR EDEMA . TAKE WITH POTASSIUM 09/05/2018 11/03/2018 Inactive phentermine 37.5 mg tablet RxNorm: 682675 1 Tablet(s) PO QAM 201701/21/2019 Inactive doxepin 25 mg capsule RxNorm: 7420248 1 Capsule(s) PO QH S as needed for sleep TAKE ONE CAPSULE BY MOUTH EVERY NIGHT AT BEDTIME NEEDED 08/27/2018 09/04/2018 Inactive Keflex 500 mg capsule RxNorm: 716999 1 Capsule(s) PO TID 08/09/2018 1 10/19/2017 Inactive Diflucan 100 mg tablet RxNorm: 091088 1 Tablet(s) PO QD 08/09/2018 Inactive Premarin 1.25 mg tablet RxNorm: 681801 2 Tablet(s) PO QD 08/09/2018 0 05/04/2019 Inactive Zofran ODT 4 mg disintegrating tablet RxNorm: 981939 1 Tablet(s) PO Q4H as needed for nausea 08/09/2018 01/21/2019 Inactive metoprolol tartrate 100 mg tablet RxNorm: 548885 TAKE O NE TABLET BY MOUTH TWICE A DAY 2018 10/04/2018 Inactive doxepin 25 mg capsule RxNorm: 5590484 TAKE ONE CAPSULE B Y MOUTH EVERY NIGHT AT BEDTIME NEEDED 2018 08/26/2018 Inactive cyclobenzaprine 10 mg tablet RxNorm: 437942 TAKE ONE TA BLET BY MOUTH THREE TIMES A DAY NEEDED FOR MUSCLE SPASMS 2018 09/29/2018 Inactive hydrocodone 10 mg-acetaminophen 325 mg tablet RxNorm: 674772 1-2 Tablet(s) QID as needed for pain MUST LAST 30 DAYS 07/29/2018 08/27/2018 Inactive (Response to an electronic controlled substance refill request - RxReferenceNumber: [id number]) nystatin 100,000 unit/gram topical powder RxNorm: 979453 Applic ation TOP BID 07/22/2018 08/04/2018 Inactive doxepin 25 mg capsule RxNorm: 0812702 1 Capsule(s) PO QHS as needed 07/22/2018 08/05/2018 Inactive triamterene 75 mg-hydrochlorothiazide 50 mg tablet RxNorm: 3 33257 TAKE ONE TABLET BY MOUTH DAILY 07/05/2018 10/02/2018 Inactive duloxetine 60 mg capsule,delayed release RxNorm: 562126 TAKE ONE CAPSULE BY MOUTH DAILY 07/05/2018 09/02/2018 Inactive Klor-Con 8 mEq tablet,extended release RxNorm: 903098 T FARRUKH ONE TABLET BY MOUTH TWICE A DAY 07/05/2018 10/02/2018 Inactive Lipitor 10 mg tablet RxNorm: 310254 TAKE ONE TABLET BY MOUTH AT BEDTIME 07/05/2018 09/02/2018 Inactive allopurinol 300 mg tablet RxNorm: 449510 TAKE ONE TABLET BY LOPEZ TH DAILY 07/05/2018 10/02/2018 Inactive clonidine HCl 0.1 mg tablet RxNorm: 409974 TAKE ONE TAB LET BY MOUTH FOUR TIMES A DAY 07/05/2018 10/02/2018 Inactive hydrocodone 10 mg-acetaminophen 325 mg tablet RxNorm: 784127 1-2 Tablet(s) QID as needed for pain MUST LAST 30 DAYS 06/28/2018 07/27/2018 Inactive (Response to an electronic controlled substance refill request - RxReferenceNumber: [id number]) MediHoney (calcium alginate-honey) 4" X 5" bandage RxNorm: 1 Application TOP QD 06/17/2018 06/26/2018 Inactive honey-hydrocolloid dressing 4" X 5" RxNorm: 1 Application TOP QD 06/17/2018 07/16/2018 Inactive furosemide 40 mg tablet RxNorm: 502613 TAKE ONE TABLET BY MOUTH EVERY MORNING NEEDED FOR EDEMA . TAKE WITH POTASSIUM 06/10/2018 07/09/2018 Inactive This is a refill request. hydrocodone 10 mg-acetaminophen 325 mg tablet RxNorm: 354784 1-2 Tablet(s) QID as needed for pain MUST LAST 30 DAYS 05/30/2018 06/27/2018 Inactive (Response to an electronic controlled substance refill request - RxReferenceNumber: [id number]) acyclovir 800 mg tablet RxNorm: 689523 1 Tablet(s) PO 5x day 201705/22/2018 Inactive Premarin 1.25 mg tablet RxNorm: 142028 1-2 Tablet(s) PO QD 05/15/20 18 07/13/2018 Inactive cyclobenzaprine 10 mg tablet RxNorm: 543504 1 Tablet(s) PO TID as needed for muscle spasm 05/09/2018 05/08/2018 Inactive Medrol (Dustin) 4 mg tablets in a dose pack RxNorm: 928448 Tablet(s) PO As Directed 05/02/2018 06/16/2018 Inactive hydrocodone 10 mg-acetaminophen 325 mg tablet RxNorm: 635616 1-2 Tablet(s) QID as needed for pain MUST LAST 30 DAYS 04/30/2018 05/29/2018 Inactive (Response to an electronic controlled substance refill request - RxReferenceNumber: [id number]) duloxetine 60 mg capsule,delayed release RxNorm: 022105 TAKE ONE CAPSULE BY MOUTH DAILY 04/16/2018 05/15/2018 Inactive Celebrex 200 mg capsule RxNorm: 245994 TAKE ONE CAPSULE BY MOUT H TWICE A DAY 04/16/2018 06/14/2018 Inactive Singulair 10 mg tablet RxNorm: 798117 TAKE ONE TABLET BY MOUTH JOSÉ Y 04/16/2018 11/19/2018 Inactive Lipitor 10 mg tablet RxNorm: 315530 TAKE ONE TABLET BY MOUTH AT BEDTIME 04/16/2018 05/15/2018 Inactive hydrocodone 10 mg-acetaminophen 325 mg tablet RxNorm: 325248 1-2 Tablet(s) QID as needed for pain MUST LAST 30 DAYS 03/29/2018 04/27/2018 Inactive (Response to an electronic controlled substance refill request - RxReferenceNumber: [id number]) cyclobenzaprine 10 mg tablet RxNorm: 658641 1 Tablet(s) PO TID as needed for muscle spasm 03/18/2018 05/09/2018 Inactive omeprazole 40 mg capsule,delayed release RxNorm: 685299 1 Capsu le(s) PO QD 02/26/2018 08/24/2018 Inactive hydrocodone 10 mg-acetaminophen 325 mg tablet RxNorm: 862074 1-2 Tablet(s) QID as needed for pain MUST LAST 30 DAYS 02/26/2018 03/27/2018 Inactive (Response to an electronic controlled substance refill request - RxReferenceNumber: [id number]) metoprolol tartrate 100 mg tablet RxNorm: 804147 1 Tablet(s) PO BID 02/18/2018 08/05/2018 Inactive Lyrica 75 mg capsule RxNorm: 202422 1 Capsule(s) PO QHS 01/30/2018 Inactive phentermine 37.5 mg tablet RxNorm: 504456 1 Tablet(s) PO QAM 201706/16/2018 Inactive hydrocodone 10 mg-acetaminophen 325 mg tablet RxNorm: 914494 1-2 Tablet(s) QID as needed for pain MUST LAST 30 DAYS 01/29/2018 02/25/2018 Inactive (Response to an electronic controlled substance refill request - RxReferenceNumber: [id number]) Klor-Con 8 mEq tablet,extended release RxNorm: 593960 1 Tablet( s) PO BID 01/14/2018 07/04/2018 Inactive allopurinol 300 mg tablet RxNorm: 602508 1 Tablet(s) PO QD 01/15/20 18 07/04/2018 Inactive Lipitor 10 mg tablet RxNorm: 987279 1 Tablet(s) PO QHS 01/14/201812/2017 Inactive triamterene 75 mg-hydrochlorothiazide 50 mg tablet RxNorm: 3 62495 1 Tablet(s) PO QD 01/14/2018 07/04/2018 Inactive hydrocodone 10 mg-acetaminophen 325 mg tablet RxNorm: 453938 1-2 Tablet(s) QID as needed for pain MUST LAST 30 DAYS 12/27/2017 01/25/2018 Inactive (Response to an electronic controlled substance refill request - RxReferenceNumber: [id number]) Onglyza 5 mg tablet RxNorm: 007612 1 Tablet(s) PO QD 12/18/201701/29 Inactive metformin 500 mg tablet RxNorm: 031568 1 Tablet(s) PO BID 12/11/2017 12/10/2017 Inactive metformin 500 mg tablet RxNorm: 615381 1 Tablet(s) PO BID 12/11/2017 12/17/2017 Inactive furosemide 40 mg tablet RxNorm: 691021 1 Tablet(s) PO Q AM prn edema--take with potassium 12/11/2017 06/08/2018 Inactive cyclobenzaprine 10 mg tablet RxNorm: 443087 1 Tablet(s) PO TID as needed for muscle spasm 12/11/2017 03/18/2018 Inactive hydrocodone 10 mg-acetaminophen 325 mg tablet RxNorm: 803129 1-2 Tablet(s) QID as needed for pain MUST LAST 30 DAYS 10/23/2017 11/21/2017 Inactive (Response to an electronic controlled substance refill request - RxReferenceNumber: [id number]) Lipitor 10 mg tablet RxNorm: 584618 1 Tablet(s) PO QHS 10/16/201703/2018 Inactive cyclobenzaprine 10 mg tablet RxNorm: 860016 1 Tablet(s) PO TID as needed for muscle spasm 10/09/2017 12/10/2017 Inactive hydroxyzine HCl 25 mg tablet RxNorm: 399897 1 Tablet(s) PO BID as needed for anxiety 09/20/2017 01/29/2018 Inactive Effexor XR 75 mg capsule,extended release RxNorm: 790199 1 Caps ule(s) PO QD 09/20/2017 01/29/2018 Inactive metoprolol tartrate 100 mg tablet RxNorm: 084587 1 Tablet(s) PO BID 08/20/2017 02/18/2018 Inactive baclofen 20 mg tablet RxNorm: 100810 1 Tablet(s) PO TID as needed for muscle spasm 08/20/2017 01/21/2019 Inactive clonidine HCl 0.1 mg tablet RxNorm: 799957 1 Tablet(s) PO QID 08/2005/16/2018 Inactive Seroquel 25 mg tablet RxNorm: 667321 1 Tablet(s) PO QHS 08/17/2017 Inactive Seroquel 25 mg tablet RxNorm: 996828 1 Tablet(s) PO QHS 08/17/2017 Inactive Diflucan 100 mg tablet RxNorm: 866121 TAKE ONE TABLET BY MOUTH JOSÉ Y 07/25/2017 08/07/2017 Inactive hydrocodone 10 mg-acetaminophen 325 mg tablet RxNorm: 141013 1-2 Tablet(s) QID as needed for pain MUST LAST 30 DAYS 07/19/2017 08/17/2017 Inactive (Response to an electronic controlled substance refill request - RxReferenceNumber: [id number]) clindamycin 300 mg capsule RxNorm: 679584 1 Capsule(s) PO TID 07/1907/28/2017 Inactive clotrimazole-betamethasone 1 %-0.05 % topical cream RxNorm: 812102 Application TOP BID to elbow rash 07/19/2017 06/16/2018 Inactive Singulair 10 mg tablet RxNorm: 035128 Tablet(s) TAKE ONE TABLET BY MOUTH DAILY 07/18/2017 04/13/2018 Inactive triamterene 75 mg-hydrochlorothiazide 50 mg tablet RxNorm: 3 51455 1 Tablet(s) PO QD 07/18/2017 01/14/2018 Inactive Celebrex 200 mg capsule RxNorm: 413446 Capsule(s) TAKE ONE CAPSULE BY MOUTH TWICE A DAY 07/18/2017 10/15/2017 Inactive hydrocodone 10 mg-acetaminophen 325 mg tablet RxNorm: 606936 1-2 Tablet(s) QID as needed for pain MUST LAST 30 DAYS 06/19/2017 07/18/2017 Inactive (Response to an electronic controlled substance refill request - RxReferenceNumber: [id number]) hydrocodone 10 mg-acetaminophen 325 mg tablet RxNorm: 270353 1-2 Tablet(s) QID as needed for pain MUST LAST 30 DAYS 06/19/2017 06/18/2017 Inactive (Response to an electronic controlled substance refill request - RxReferenceNumber: [id number]) baclofen 20 mg tablet RxNorm: 902362 1 Tablet(s) PO TID as needed for muscle spasm 06/18/2017 08/20/2017 Inactive Medrol (Dustin) 4 mg tablets in a dose pack RxNorm: 487287 Tablet(s) PO As Directed 06/05/2017 07/18/2017 Inactive omeprazole 40 mg capsule,delayed release RxNorm: 067296 1 Capsu le(s) PO QD 04/20/2017 10/16/2017 Inactive Premarin 1.25 mg tablet RxNorm: 928823 1-2 Tablet(s) PO QD 04/11/20 17 05/15/2018 Inactive duloxetine 60 mg capsule,delayed release RxNorm: 401998 1 Capsu le(s) PO QD 04/11/2017 09/19/2017 Inactive furosemide 40 mg tablet RxNorm: 820630 1 Tablet(s) PO Q AM prn edema--take with potassium 04/11/2017 12/11/2017 Inactive Klor-Con 8 mEq tablet,extended release RxNorm: 909484 1 Tablet( s) PO BID 04/11/2017 01/14/2018 Inactive Lipitor 10 mg tablet RxNorm: 808537 1 Tablet(s) PO QHS 04/11/201702/2018 Inactive amlodipine 5 mg-benazepril 20 mg capsule RxNorm: 076568 1 Capsu le(s) PO QD 04/11/2017 01/29/2018 Inactive allopurinol 300 mg tablet RxNorm: 730942 1 Tablet(s) PO QD 04/11/2001/14/2018 Inactive clonidine HCl 0.1 mg tablet RxNorm: 888804 1 Tablet(s) PO QID 04/0508/19/2017 Inactive baclofen 20 mg tablet RxNorm: 711537 1 Tablet(s) PO TID as needed for muscle spasm 04/02/2017 06/18/2017 Inactive Premarin 1.25 mg tablet RxNorm: 527161 1-2 Tablet(s) PO QD 03/20/20 17 04/10/2017 Inactive hydrocodone 10 mg-acetaminophen 325 mg tablet RxNorm: 853887 1-2 Tablet(s) QID as needed for pain MUST LAST 30 DAYS 03/14/2017 01/21/2019 Inactive (Response to an electronic controlled substance refill request - RxReferenceNumber: [id number]) metoprolol tartrate 100 mg tablet RxNorm: 542090 1 Tablet(s) PO BID 02/12/2017 08/20/2017 Inactive hydrocodone 10 mg-acetaminophen 325 mg tablet RxNorm: 121984 1-2 Tablet(s) QID as needed for pain MUST LAST 30 DAYS 02/08/2017 03/09/2017 Inactive (Response to an electronic controlled substance refill request - RxReferenceNumber: [id number]) metoprolol tartrate 100 mg tablet RxNorm: 632212 TAKE O NE TABLET BY MOUTH TWICE A DAY 01/11/2017 02/12/2017 Inactive metoprolol tartrate 100 mg tablet RxNorm: 551385 1 Tablet(s) PO BID 12/18/2016 12/17/2016 Inactive metoprolol tartrate 100 mg tablet RxNorm: 835257 1 Tablet(s) PO BID 12/18/2016 01/10/2017 Inactive furosemide 40 mg tablet RxNorm: 909827 1 Tablet(s) PO Q AM prn edema--take with potassium 12/13/2016 02/10/2017 Inactive amitriptyline 100 mg tablet RxNorm: 226344 1 Tablet(s) PO QHS 11/2812/12/2016 Inactive baclofen 20 mg tablet RxNorm: 929674 1 Tablet(s) PO TID as needed for muscle spasm 11/14/2016 04/01/2017 Inactive triamterene 75 mg-hydrochlorothiazide 50 mg tablet RxNorm: 3 12201 1 Tablet(s) PO QD 11/14/2016 11/13/2016 Inactive metolazone 2.5 mg tablet RxNorm: 165907 TAKE ONE TABLET BY MOUTH DAILY NEEDED FOR EDEMA 11/14/2016 12/12/2016 Inactive triamterene 75 mg-hydrochlorothiazide 50 mg tablet RxNorm: 3 70078 1 Tablet(s) PO QD 11/14/2016 07/18/2017 Inactive amitriptyline 50 mg tablet RxNorm: 697002 TAKE ONE TABL ET BY MOUTH AT BEDTIME NEEDED FOR SLEEP 11/14/2016 11/27/2016 Inactive Cymbalta 60 mg capsule,delayed release RxNorm: 900252 1 Capsule (s) PO QHS 11/14/2016 12/12/2016 Inactive clonidine HCl 0.1 mg tablet RxNorm: 749963 1 Tablet(s) PO QID 11/1304/04/2017 Inactive amitriptyline 50 mg tablet RxNorm: 873262 1 Tablet(s) P O QHS as needed for sleep 11/01/2016 11/27/2016 Inactive duloxetine 60 mg capsule,delayed release RxNorm: 774330 TAKE ONE CAPSULE BY MOUTH DAILY 10/20/2016 01/17/2017 Inactive allopurinol 300 mg tablet RxNorm: 552712 TAKE ONE TABLET BY LOPEZ TH DAILY 10/20/2016 01/16/2017 Inactive Lyrica 75 mg capsule RxNorm: 334047 TAKE ONE CAPSULE BY MOUTH EVERY NIGHT AT BEDTIME 10/20/2016 12/10/2016 Inactive Klor-Con 8 mEq tablet,extended release RxNorm: 915686 T FARRUKH ONE TABLET BY MOUTH TWICE A DAY 10/20/2016 01/17/2017 Inactive Celebrex 200 mg capsule RxNorm: 796336 TAKE ONE CAPSULE BY MOUT H TWICE A DAY 10/20/2016 07/18/2017 Inactive Bystolic 10 mg tablet RxNorm: 421802 TAKE ONE TABLET BY MOUTH EVERY NIGHT AT BEDTIME 10/20/2016 12/17/2016 Inactive amlodipine 5 mg-benazepril 20 mg capsule RxNorm: 362721 TAKE ONE CAPSULE BY MOUTH EVERY NIGHT AT BEDTIME -- TO REPLACE AMLODOPINE 10/20/20162016 Inactive Lipitor 10 mg tablet RxNorm: 707357 TAKE ONE TABLET BY MOUTH EVERY NIGHT AT BEDTIME 10/20/2016 01/17/2017 Inactive alprazolam 0.5 mg tablet RxNorm: 375703 3 Tablet(s) PO QHS as needed for sleep/anxiety 09/20/2016 10/31/2016 Inactive Tamiflu 75 mg capsule RxNorm: 992377 1 Capsule(s) PO QD 09/19/2016 Inactive Lyrica 75 mg capsule RxNorm: 049919 1 Capsule(s) PO QHS 09/19/2016 Inactive prednisone 20 mg tablet RxNorm: 285373 1 Tablet(s) PO QD 08/10/2016 1 10/17/2015 Inactive doxycycline hyclate 100 mg capsule RxNorm: 8295896 1 Capsule(s) PO BID 08/10/2016 08/19/2016 Inactive Medrol (Dustin) 4 mg tablets in a dose pack RxNorm: 605373 Tablet(s) PO As Directed 07/31/2016 08/22/2016 Inactive Singulair 10 mg tablet RxNorm: 319613 TAKE ONE TABLET BY MOUTH JOSÉ Y 07/27/2016 07/18/2017 Inactive hydrocodone 10 mg-acetaminophen 325 mg tablet RxNorm: 522053 1-2 Tablet(s) QID as needed for pain MUST LAST 30 DAYS 07/26/2016 08/24/2016 Inactive (Response to an electronic controlled substance refill request - RxReferenceNumber: [id number]) alprazolam 0.5 mg tablet RxNorm: 114713 3 Tablet(s) PO QHS as needed for anxiety or sleep 07/26/2016 09/20/2016 Inactive clindamycin 300 mg capsule RxNorm: 418543 1 Capsule(s) PO TID 07/2007/29/2016 Inactive Diflucan 100 mg tablet RxNorm: 333831 1 Tablet(s) PO QD 07/20/2016 Inactive Levaquin 500 mg tablet RxNorm: 219712 1 Tablet(s) PO QD 07/17/2016 Inactive Levaquin 500 mg tablet RxNorm: 403571 1 Tablet(s) PO QD 07/10/2016 Inactive Levaquin 500 mg tablet RxNorm: 833518 1 Tablet(s) PO QD 07/10/2016 Inactive mupirocin 2 % topical ointment RxNorm: 811504 TOP Apply topically to affected areas twice daily 07/06/2016 09/18/2016 Inactive Singulair 10 mg tablet RxNorm: 765248 TAKE ONE TABLET BY MOUTH JOSÉ Y 06/21/2016 01/21/2019 Inactive alprazolam 0.5 mg tablet RxNorm: 154063 TAKE THREE TABL ETS BY MOUTH AT BEDTIME NEEDED FOR SLEEP OR STRESS 05/22/2016 06/20/2016 Inactive triamterene 75 mg-hydrochlorothiazide 50 mg tablet RxNorm: 3 59396 1 Tablet(s) PO QD 04/26/2016 01/12/2020 Inactive Premarin 1.25 mg tablet RxNorm: 882623 1-2 Tablet(s) PO QD 04/26/2003/20/2017 Inactive Klor-Con 8 mEq tablet,extended release RxNorm: 673562 1 Tablet( s) PO BID 04/26/2016 10/19/2016 Inactive Celebrex 200 mg capsule RxNorm: 277874 1 Capsule(s) PO BID TAKE ONE CAPSULE BY MOUTH EVERY DAY 04/26/2016 10/19/2016 Inactive Lipitor 10 mg tablet RxNorm: 686485 1 Tablet(s) PO QHS 04/26/201605/2017 Inactive allopurinol 300 mg tablet RxNorm: 325022 1 Tablet(s) PO QD TAKE ONE TABLET BY MOUTH EVERY DAY 04/26/2016 10/19/2016 Inactive amlodipine 5 mg-benazepril 20 mg capsule RxNorm: 782053 1 Capsule(s) PO QHS replaces amlodopine 04/26/2016 10/19/2016 Inactive duloxetine 60 mg capsule,delayed release RxNorm: 160782 1 Capsu le(s) PO QD 04/26/2016 10/19/2016 Inactive Bystolic 10 mg tablet RxNorm: 293379 1 Tablet(s) PO QHS 04/26/2016 Inactive Singulair 10 mg tablet RxNorm: 182478 1 Tablet(s) PO QD TAKE ONE TABLET BY MOUTH DAILY 04/26/2016 06/20/2016 Inactive clonidine HCl 0.1 mg tablet RxNorm: 056660 1 Tablet(s) PO QID 04/2610/22/2016 Inactive hydrocodone 10 mg-acetaminophen 325 mg tablet RxNorm: 101050 1-2 Tablet(s) QID as needed for pain TAKE ONE TO TWO TABLETS BY MOUTH FOUR TIMES A DAY . MUST LAST 30 DAYS 03/31/2016 04/29/2016 Inactive (Response to an electronic controlled substance refill request - [id number]) Klor-Con 8 mEq tablet,extended release RxNorm: 322190 T FARRUKH ONE TABLET BY MOUTH TWICE A DAY 03/24/2016 09/29/2019 Inactive prednisone 20 mg tablet RxNorm: 128968 1 Tablet(s) PO QD 03/09/2016 0 03/08/2016 Inactive prednisone 20 mg tablet RxNorm: 772173 1 Tablet(s) PO QD 03/09/2016 0 03/13/2016 Inactive alprazolam 0.5 mg tablet RxNorm: 745062 3 Tablet(s) PO QHS as needed for sleep/stress 03/02/2016 01/21/2019 Inactive mupirocin 2 % topical ointment RxNorm: 990436 TOP twice daily to affected areas of face and neck 02/21/2016 04/25/2016 Inactive clonidine HCl 0.1 mg tablet RxNorm: 545090 TAKE ONE TAB LET BY MOUTH FOUR TIMES A DAY 02/15/2016 09/29/2019 Inactive clonidine HCl 0.1 mg tablet RxNorm: 918047 1 Tablet(s) PO QID 02/1404/25/2016 Inactive Premarin 1.25 mg tablet RxNorm: 868828 1-2 Tablet(s) PO QD 02/15/20 16 03/15/2016 Inactive Klor-Con 8 mEq tablet,extended release RxNorm: 867386 T FARRUKH ONE TABLET BY MOUTH TWICE A DAY 02/15/2016 03/15/2016 Inactive potassium chloride ER 20 mEq tablet,extended release(part/cr yst) RxNorm: 394624 2 Tablet(s) PO BID 02/15/2016 03/15/2016 Inactive Macrobid 100 mg capsule RxNorm: 349745 1 Capsule(s) PO BID 01/24/20 16 01/30/2016 Inactive prednisone 20 mg tablet RxNorm: 638012 Take 3tabs PO QD x 2 days, then 2 tabs PO QD x 2 days, then 1 tab PO QD x 2 days, then 1/2 tab PO QDy x 2 days 12/23/2015 04/25/2016 Inactive Klor-Con 8 mEq tablet,extended release RxNorm: 523800 T FARRUKH ONE TABLET BY MOUTH TWICE A DAY 12/20/2015 02/14/2016 Inactive alprazolam 1 mg tablet RxNorm: 613474 1 1/2 Tablet(s) PO QHS 201501/23/2016 Inactive nystatin 100,000 unit/gram topical cream RxNorm: 721550 APPLY TO AFFECTED AREA(S) TWO TIMES A DAY 11/30/2015 12/14/2015 Inactive Singulair 10 mg tablet RxNorm: 818451 TAKE ONE TABLET BY MOUTH JOSÉ Y 11/18/2015 04/25/2016 Inactive allopurinol 300 mg tablet RxNorm: 089278 1 Tablet(s) PO QD TAKE ONE TABLET BY MOUTH EVERY DAY 10/26/2015 04/22/2016 Inactive Singulair 10 mg tablet RxNorm: 729403 TAKE ONE TABLET BY MOUTH JOSÉ Y 10/26/2015 11/17/2015 Inactive duloxetine 60 mg capsule,delayed release RxNorm: 705468 1 Capsu le(s) PO QD 10/26/2015 04/22/2016 Inactive triamterene 75 mg-hydrochlorothiazide 50 mg tablet RxNorm: 3 50509 1 Tablet(s) PO QD 10/26/2015 11/14/2016 Inactive potassium chloride ER 20 mEq tablet,extended release(part/cr yst) RxNorm: 847522 2 Tablet(s) PO BID 10/26/2015 02/14/2016 Inactive Lipitor 10 mg tablet RxNorm: 491191 1 Tablet(s) PO QHS 10/26/2015 Inactive amlodipine 5 mg-benazepril 20 mg capsule RxNorm: 543236 1 Capsule(s) PO QHS replaces amlodopine 10/26/2015 04/22/2016 Inactive Bystolic 10 mg tablet RxNorm: 124299 1 Tablet(s) PO QHS 10/26/2015 Inactive amlodipine 5 mg-benazepril 20 mg capsule RxNorm: 266418 1 Capsule(s) PO QHS replaces amlodopine 10/06/2015 10/25/2015 Inactive amlodipine 5 mg tablet RxNorm: 546074 1 Tablet(s) PO QHS 09/30/2015 0 04/25/2016 Inactive metolazone 2.5 mg tablet RxNorm: 045554 TAKE ONE TABLET BY MOUTH DAILY NEEDED FOR EDEMA 09/30/2015 01/21/2019 Inactive duloxetine 60 mg capsule,delayed release RxNorm: 440871 1 Capsu le(s) PO QD 09/30/2015 10/25/2015 Inactive cephalexin 500 mg capsule RxNorm: 455829 1 Capsule(s) PO BID 201509/23/2015 Inactive mupirocin 2 % topical ointment RxNorm: 116220 TOP twice daily to affected areas of face and neck 09/14/2015 02/20/2016 Inactive baclofen 20 mg tablet RxNorm: 722013 1 Tablet(s) PO TID as needed for muscle spasm 09/01/2015 11/14/2016 Inactive clonidine HCl 0.1 mg tablet RxNorm: 477417 1 Tablet(s) PO QID 09/0102/14/2016 Inactive alprazolam 1 mg tablet RxNorm: 096325 1 1/2 Tablet(s) PO QHS 201409/09/2015 Inactive baclofen 20 mg tablet RxNorm: 100083 1 Tablet(s) PO TID as needed for muscle spasm 07/23/2015 09/01/2015 Inactive omeprazole 40 mg capsule,delayed release RxNorm: 621919 1 Capsu le(s) PO QD 07/23/2015 04/25/2016 Inactive alprazolam 1 mg tablet RxNorm: 243902 1 1/2 Tablet(s) PO QHS 201408/10/2015 Inactive Bystolic 10 mg tablet RxNorm: 079954 1 Tablet(s) PO BID 06/24/2015 Inactive allopurinol 300 mg tablet RxNorm: 046711 1 Tablet(s) PO QD TAKE ONE TABLET BY MOUTH EVERY DAY 06/23/2015 10/20/2015 Inactive alprazolam 1 mg tablet RxNorm: 000843 1 1/2 Tablet(s) PO QHS 201407/06/2015 Inactive clonidine HCl 0.1 mg tablet RxNorm: 860407 1 Tablet(s) PO QID 06/0209/01/2015 Inactive clonidine HCl 0.1 mg tablet RxNorm: 702248 1 Tablet(s) PO QID 06/0206/01/2015 Inactive Cymbalta 60 mg capsule,delayed release RxNorm: 836939 1 Capsule (s) PO QHS 06/02/2015 08/30/2015 Inactive Cymbalta 60 mg capsule,delayed release RxNorm: 574063 1 Capsule (s) PO QHS 06/02/2015 06/01/2015 Inactive clonidine HCl 0.1 mg tablet RxNorm: 834577 1 Tablet(s) PO TID 05/3106/01/2015 Inactive replaces 0.2mg dose metolazone 2.5 mg tablet RxNorm: 163690 TAKE ONE TABLET BY MOUTH DAILY NEEDED FOR EDEMA 05/21/2015 06/19/2015 Inactive Singulair 10 mg tablet RxNorm: 648975 TAKE ONE TABLET BY MOUTH JOSÉ Y 05/21/2015 10/17/2015 Inactive Cymbalta 30 mg capsule,delayed release RxNorm: 376149 1 Capsule (s) PO QHS 05/20/2015 11/14/2016 Inactive betamethasone valerate 0.1 % topical cream RxNorm: 314450 Appli cation TOP BID 05/10/2015 04/25/2016 Inactive Bactroban 2 % topical ointment RxNorm: 276742 Application TOP BID 0 05/10/2015 06/20/2015 Inactive baclofen 20 mg tablet RxNorm: 665224 1 Tablet(s) PO TID as needed 0 04/26/2015 07/23/2015 Inactive Lipitor 10 mg tablet RxNorm: 684351 1 Tablet(s) PO QHS 04/26/201508/2016 Inactive clonidine HCl 0.1 mg tablet RxNorm: 950289 1 Tablet(s) PO TID 04/2605/30/2015 Inactive replaces 0.2mg dose Klor-Con 8 mEq tablet,extended release RxNorm: 712469 1 Tablet( s) PO BID 04/26/2015 04/25/2016 Inactive metolazone 2.5 mg tablet RxNorm: 692607 1 Tablet(s) PO QD as ne eded for edema 04/26/2015 04/25/2015 Inactive triamterene 75 mg-hydrochlorothiazide 50 mg tablet RxNorm: 3 12799 1 Tablet(s) PO QD 04/26/2015 10/22/2015 Inactive Premarin 1.25 mg tablet RxNorm: 110430 1-2 Tablet(s) PO QD 04/26/20 15 10/22/2015 Inactive Bystolic 10 mg tablet RxNorm: 923970 1 Tablet(s) PO QAM TAKE ONE TABLET BY MOUTH EVERY MORNING 04/23/2015 06/23/2015 Inactive clonidine HCl 0.1 mg tablet RxNorm: 864849 1 Tablet(s) PO TID 03/2304/25/2015 Inactive replaces 0.2mg dose nystatin 100,000 unit/gram topical cream RxNorm: 304681 Applica tion TOP BID 03/23/2015 06/20/2015 Inactive baclofen 20 mg tablet RxNorm: 298242 1 Tablet(s) PO TID as needed 0 03/23/2015 04/25/2015 Inactive Premarin 1.25 mg tablet RxNorm: 364995 1-2 Tablet(s) PO QD 03/23/20 15 04/25/2015 Inactive Klor-Con 8 mEq tablet,extended release RxNorm: 070011 1 Tablet( s) PO BID 03/23/2015 04/25/2015 Inactive cefdinir 300 mg capsule RxNorm: 726838 2 Capsule(s) PO QD 03/16/2015 03/25/2015 Inactive baclofen 20 mg tablet RxNorm: 502490 1 Tablet(s) PO TID as needed 0 03/02/2015 03/22/2015 Inactive allopurinol 300 mg tablet RxNorm: 741372 1 Tablet(s) PO QD TAKE ONE TABLET BY MOUTH EVERY DAY 02/22/2015 05/22/2015 Inactive Klor-Con M20 mEq tablet,extended release RxNorm: 376104 2 Tablet(s) PO BID to use with lasix 02/22/2015 06/20/2015 Inactive clonidine HCl 0.1 mg tablet RxNorm: 837471 1 Tablet(s) PO TID 02/1903/22/2015 Inactive replaces 0.2mg dose Lipitor 10 mg tablet RxNorm: 236956 1 Tablet(s) PO QHS 01/20/201506/2015 Inactive Lipitor 10 mg tablet RxNorm: 406321 1 Tablet(s) PO QHS 01/20/2015 Inactive Singulair 10 mg tablet RxNorm: 704286 1 Tablet(s) PO QD TAKE ONE TABLET BY MOUTH EVERY DAY 11/20/2014 05/18/2015 Inactive Lipitor 10 mg tablet RxNorm: 821196 1 Tablet(s) PO QHS 11/20/201408/2015 Inactive allopurinol 300 mg tablet RxNorm: 333410 1 Tablet(s) PO QD TAKE ONE TABLET BY MOUTH EVERY DAY 11/20/2014 02/16/2015 Inactive Bystolic 10 mg tablet RxNorm: 426633 1 Tablet(s) PO QAM TAKE ONE TABLET BY MOUTH EVERY MORNING 11/20/2014 04/22/2015 Inactive Klor-Con 8 mEq tablet,extended release RxNorm: 110724 1 Tablet( s) PO BID 11/20/2014 02/17/2015 Inactive baclofen 20 mg tablet RxNorm: 989405 1 Tablet(s) PO TID as needed 0 11/20/2014 01/21/2019 Inactive baclofen 20 mg tablet RxNorm: 638784 1 Tablet(s) PO TID as needed 0 10/27/2014 11/19/2014 Inactive baclofen 20 mg tablet RxNorm: 805158 1 Tablet(s) PO TID as needed 0 10/26/2014 03/01/2015 Inactive allopurinol 300 mg tablet RxNorm: 838751 1 Tablet(s) PO QD TAKE ONE TABLET BY MOUTH EVERY DAY 10/26/2014 11/20/2014 Inactive Bystolic 10 mg tablet RxNorm: 134496 1 Tablet(s) PO QAM TAKE ONE TABLET BY MOUTH EVERY MORNING 10/26/2014 11/20/2014 Inactive clonidine HCl 0.1 mg tablet RxNorm: 169408 1 Tablet(s) PO TID 09/2805/27/2019 Inactive replaces 0.2mg dose clonidine HCl 0.1 mg tablet RxNorm: 786305 1 Tablet(s) PO TID 09/2802/18/2015 Inactive replaces 0.2mg dose baclofen 20 mg tablet RxNorm: 869584 1 Tablet(s) PO TID as needed 1 11/01/2013 08/30/2014 Inactive Lipitor 10 mg tablet RxNorm: 658259 1 Tablet(s) PO QHS 08/31/2014 Inactive baclofen 20 mg tablet RxNorm: 448060 1 Tablet(s) PO TID as needed 1 11/01/2013 10/26/2014 Inactive triamterene 75 mg-hydrochlorothiazide 50 mg tablet RxNorm: 3 86414 1 Tablet(s) PO QD 08/31/2014 02/26/2015 Inactive Klor-Con 8 mEq tablet,extended release RxNorm: 035687 1 Tablet( s) PO BID 08/31/2014 11/20/2014 Inactive baclofen 20 mg tablet RxNorm: 600441 1 Tablet(s) PO TID as needed 1 09/30/2013 10/25/2014 Inactive baclofen 20 mg tablet RxNorm: 575794 1 Tablet(s) PO TID as needed 1 09/30/2013 08/31/2014 Inactive omeprazole 40 mg capsule,delayed release RxNorm: 231103 1 Capsu le(s) PO QD 07/21/2014 07/23/2015 Inactive Flonase 50 mcg/actuation nasal spray,suspension RxNorm: 8963 23 1 [place] NASAL BID 07/15/2014 04/09/2017 Inactive hydrocodone 10 mg-acetaminophen 325 mg tablet RxNorm: 534957 1-2 Tablet(s) QID as needed for pain TAKE ONE TO TWO TABLETS BY MOUTH FOUR TIMES A DAY . MUST LAST 30 DAYS 06/30/2014 07/27/2014 Inactive (Response to an electronic controlled substance refill request - RxReferenceNumber: [id number]) baclofen 20 mg tablet RxNorm: 878744 1 Tablet(s) PO TID as needed 1 07/31/2014 Inactive Singulair 10 mg tablet RxNorm: 943933 1 Tablet(s) PO QD TAKE ONE TABLET BY MOUTH EVERY DAY 05/25/2014 11/20/2014 Inactive Bystolic 10 mg tablet RxNorm: 208158 TAKE ONE TABLET BY MOUTH E VERY MORNING 05/25/2014 09/21/2014 Inactive allopurinol 300 mg tablet RxNorm: 626791 1 Tablet(s) PO QD TAKE ONE TABLET BY MOUTH EVERY DAY 05/25/2014 10/21/2014 Inactive baclofen 20 mg tablet RxNorm: 797314 1 Tablet(s) PO TID as needed 0 05/25/2014 06/29/2014 Inactive allopurinol 300 mg tablet RxNorm: 446049 TAKE ONE TABLET BY LOPEZ TH EVERY DAY 05/25/2014 09/21/2014 Inactive Singulair 10 mg tablet RxNorm: 254357 1 Tablet(s) PO QD TAKE ONE TABLET BY MOUTH EVERY DAY 05/25/2014 05/24/2014 Inactive Bystolic 10 mg tablet RxNorm: 652671 1 Tablet(s) PO QAM TAKE ONE TABLET BY MOUTH EVERY MORNING 05/25/2014 10/21/2014 Inactive metolazone 2.5 mg tablet RxNorm: 639685 1 Tablet(s) PO QD as ne eded for edema 05/18/2014 04/25/2015 Inactive Lasix 40 mg tablet RxNorm: 280533 1 Tablet(s) PO QAM s hould take potassium supplementation with this medication 05/14/2014 05/17/2014 Inactive hydrocodone 10 mg-acetaminophen 325 mg tablet RxNorm: 602580 1-2 Tablet(s) QID as needed for pain TAKE ONE TO TWO TABLETS BY MOUTH FOUR TIMES A DAY . MUST LAST 30 DAYS 05/07/2014 06/05/2014 Inactive (Response to an electronic controlled substance refill request - RxReferenceNumber: [id number]) alprazolam 0.5 mg tablet RxNorm: 870779 TAKE ONE TABLET BY MOUTH TWICE A DAY , MUST LAST 30 DAYS 05/07/2014 05/22/2016 Inactive (Response to a n electronic controlled substance refill request - RxReferenceNumber: [id number]) diclofenac sodium 75 mg tablet,delayed release RxNorm: 99818 6 1 Tablet(s) PO BID for pain 04/24/2014 07/20/2014 Inactive Celebrex 200 mg capsule RxNorm: 822911 TAKE ONE CAPSULE BY MOUT H EVERY DAY 04/24/2014 07/20/2014 Inactive alprazolam 0.5 mg tablet RxNorm: 138482 TAKE ONE TABLET BY MOUTH TWICE A DAY , MUST LAST 30 DAYS 03/24/2014 04/22/2014 Inactive (Response to a n electronic controlled substance refill request - RxReferenceNumber: [id number]) diclofenac sodium 75 mg tablet,delayed release RxNorm: 64410 6 1 Tablet(s) PO BID for pain 03/24/2014 04/24/2014 Inactive clonidine HCl 0.1 mg tablet RxNorm: 982908 1 Tablet(s) PO TID 03/2409/28/2014 Inactive replaces 0.2mg dose Klor-Con 8 mEq tablet,extended release RxNorm: 792028 1 Tablet( s) PO BID 02/26/2014 08/31/2014 Inactive diclofenac sodium 75 mg tablet,delayed release RxNorm: 32787 6 1 Tablet(s) PO BID for pain 02/25/2014 03/24/2014 Inactive hydrocodone 10 mg-acetaminophen 325 mg tablet RxNorm: 649772 1-2 Tablet(s) QID as needed for pain TAKE ONE TO TWO TABLETS BY MOUTH FOUR TIMES A DAY . MUST LAST 30 DAYS 02/25/2014 03/26/2014 Inactive (Response to an electronic controlled substance refill request - RxReferenceNumber: [id number]) alprazolam 0.5 mg tablet RxNorm: 869964 Tablet(s) PO BI D as needed for anxiety TAKE ONE TABLET BY MOUTH TWICE A DAY , MUST LAST 30 DAYS 02/25/2014 Inactive (Response to an electronic controlled [place] bstance refill request - RxReferenceNumber: [id number]) [AttnRPh: Saving apply/adjudicate RxGRP:SG20 RxBIN:[id number] RxN: ID#:[id number]] alprazolam 0.5 mg tablet RxNorm: 587044 Tablet(s) TAKE ONE TABLET BY MOUTH TWICE A DAY , MUST LAST 30 DAYS 01/27/2014 02/24/2014 Inactive (Respo nse to an electronic controlled substance refill request - RxReferenceNumber: [id number]) [AttnRPh: Saving apply/adjudicate RxGRP:SG20 RxBIN:[id number] RxPCN: ID#:[id number]] hydrocodone 10 mg-acetaminophen 325 mg tablet RxNorm: 342335 1-2 Tablet(s) QID as needed for pain TAKE ONE TO TWO TABLETS BY MOUTH FOUR TIMES A DAY . MUST LAST 30 DAYS 01/27/2014 02/24/2014 Inactive (Response to an electronic controlled substance refill request - RxReferenceNumber: [id number]) alprazolam 0.5 mg tablet RxNorm: 323173 TAKE ONE TABLET BY MOUTH TWICE A DAY , MUST LAST 30 DAYS 01/27/2014 01/26/2014 Inactive (Response to a n electronic controlled substance refill request - RxReferenceNumber: [id number]) Premarin 1.25 mg tablet RxNorm: 454748 1-2 Tablet(s) PO QD 01/28/20 14 07/25/2014 Inactive alprazolam 0.5 mg tablet RxNorm: 503197 TAKE ONE TABLET BY MOUTH TWICE A DAY , MUST LAST 30 DAYS 01/27/2014 01/27/2014 Inactive (Response to a n electronic controlled substance refill request - RxReferenceNumber: [id number]) hydrocodone 10 mg-acetaminophen 325 mg tablet RxNorm: 486651 TAKE ONE TO TWO TABLETS BY MOUTH FOUR TIMES A DAY . MUST LAST 30 DAYS 01/27/20142013 Inactive (Response to an electronic controlled [place] bstance refill request - RxReferenceNumber: [id number]) Celebrex 200 mg capsule RxNorm: 517443 1 Capsule(s) PO QD TAKE ONE CAPSULE BY MOUTH EVERY DAY 12/29/2013 04/27/2014 Inactive hydrocodone 10 mg-acetaminophen 325 mg tablet RxNorm: 959492 1-2 Tablet(s) PO QID as needed for severe pain 12/29/2013 01/27/2014 Inactive allopurinol 300 mg tablet RxNorm: 810739 1 Tablet(s) PO QD TAKE ONE TABLET BY MOUTH EVERY DAY 12/29/2013 05/24/2014 Inactive alprazolam 0.5 mg tablet RxNorm: 139671 TAKE ONE TABLET BY MOUTH TWICE A DAY , MUST LAST 30 DAYS 12/29/2013 01/27/2014 Inactive (Response to a n electronic controlled substance refill request - RxReferenceNumber: [id number]) Celebrex 200 mg capsule RxNorm: 361942 1 Capsule(s) PO QD TAKE ONE CAPSULE BY MOUTH EVERY DAY 12/29/2013 12/29/2013 Inactive Bystolic 10 mg tablet RxNorm: 269635 1 Tablet(s) PO QAM TAKE ONE TABLET BY MOUTH EVERY MORNING 12/29/2013 05/24/2014 Inactive Bystolic 10 mg tablet RxNorm: 622349 1 Tablet(s) PO QAM TAKE ONE TABLET BY MOUTH EVERY MORNING 12/29/2013 12/29/2013 Inactive Singulair 10 mg tablet RxNorm: 744357 1 Tablet(s) PO QD TAKE ONE TABLET BY MOUTH EVERY DAY 12/29/2013 05/25/2014 Inactive hydrocodone 10 mg-acetaminophen 325 mg tablet RxNorm: 323533 TAKE ONE TO TWO TABLETS BY MOUTH FOUR TIMES A DAY . MUST LAST 30 DAYS 12/29/20132013 Inactive (Response to an electronic controlled [place] bstance refill request - RxReferenceNumber: [id number]) Trazadone 75mg Tablet RxNorm: 1 Tablet(s) PO QHS as needed 03/23/2014 Inactive Trazadone 75mg Tablet RxNorm: 1 Tablet(s) PO QHS 12/24/20132014 Inactive Soma 350 mg tablet RxNorm: 738469 Tablet(s) PO TAKE ON E TABLET BY MOUTH THREE TIMES A DAY NEEDED FOR MUSCLE SPASMS. THIS MUST LAST 30 DAYS BETWEEN REFILLS. 12/10/2013 12/22/2013 Inactive (Appended: Cont rolled substance eRx refill - RxReferenceNumber: [id number]) diclofenac sodium 75 mg tablet,delayed release RxNorm: 42927 6 1 Tablet(s) PO BID for pain 12/10/2013 02/24/2014 Inactive allopurinol 300 mg tablet RxNorm: 355244 1 Tablet(s) PO QD 11/20/19 14 12/29/2013 Inactive alprazolam 0.5 mg tablet RxNorm: 636697 2 Tablet(s) PO BID 11/13/19 14 12/29/2013 Inactive prn clonidine 0.1 mg tablet RxNorm: 852663 1 Tablet(s) PO TID 11/12/2013 02/09/2014 Inactive replaces 0.2mg dose Klor-Con M20 mEq tablet,extended release RxNorm: 528658 2 Tablet(s) PO BID to use with lasix 11/12/2013 05/10/2014 Inactive Singulair 10 mg tablet RxNorm: 997256 1 Tablet(s) PO QD 11/12/2013 Inactive hydrocodone 10 mg-acetaminophen 325 mg tablet RxNorm: 752279 1-2 Tablet(s) PO QID as needed for severe pain 11/12/2013 12/28/2013 Inactive Bystolic 10 mg tablet RxNorm: 584081 1 Tablet(s) PO QAM 11/12/2013 Inactive Soma 350 mg tablet RxNorm: 860392 Tablet(s) PO TAKE ON E TABLET BY MOUTH THREE TIMES A DAY NEEDED FOR MUSCLE SPASMS. THIS MUST LAST 30 DAYS BETWEEN REFILLS. 10/13/2013 12/10/2013 Inactive (Appended: Cont rolled substance eRx refill - RxReferenceNumber: [id number]) hydrocodone 10 mg-acetaminophen 325 mg tablet RxNorm: 174495 1-2 Tablet(s) PO QID as needed for severe pain 10/03/2013 11/11/2013 Inactive diclofenac sodium 75 mg tablet,delayed release RxNorm: 34822 8 1 Tablet(s) PO BID for pain 09/11/2013 12/10/2013 Inactive alprazolam 0.5 mg tablet RxNorm: 562363 1 Tablet(s) PO BID May refill on 04/26/13 09/01/2013 10/30/2013 Inactive prn hydrocodone 10 mg-acetaminophen 325 mg tablet RxNorm: 207547 1-2 Tablet(s) PO QID as needed for severe pain 09/01/2013 10/02/2013 Inactive triamterene 75 mg-hydrochlorothiazide 50 mg tablet RxNorm: 3 80577 1 Tablet(s) PO QD 08/04/2013 08/31/2014 Inactive cyclobenzaprine 10 mg tablet RxNorm: 912108 1 Tablet(s) PO TID prn spasm 08/04/2013 08/13/2013 Inactive clonidine 0.1 mg tablet RxNorm: 201800 1 Tablet(s) PO TID 08/04/2013 11/11/2013 Inactive replaces 0.2mg dose cyclobenzaprine 10 mg tablet RxNorm: 408905 1 Tablet(s) PO TID prn spasm 07/23/2013 08/01/2013 Inactive hydrocodone 10 mg-acetaminophen 325 mg tablet RxNorm: 612564 2 1-2 Tablet(s) PO QID as needed for severe pain 06/09/2013 08/07/2013 Inactive Singulair 10 mg tablet RxNorm: 219332 1 Tablet(s) PO QD 05/29/2013 Inactive Klor-Con 8 mEq tablet,extended release RxNorm: 243749 1 Tablet( s) PO BID 05/29/2013 02/26/2014 Inactive allopurinol 300 mg tablet RxNorm: 999453 1 Tablet(s) PO QD 05/29/20 13 11/19/2013 Inactive Bystolic 10 mg tablet RxNorm: 256020 1 Tablet(s) PO QAM take one daily in the morning. 05/29/2013 11/11/2013 Inactive scopolamine 1.5 mg 72 hr Transderm Patch RxNorm: 891690 Application TD Q72H for motion sickness 05/26/2013 07/22/2013 Inactive Soma 350 mg tablet RxNorm: 339597 1 Tablet(s) PO TID as needed for spasm 05/19/2013 10/13/2013 Inactive diclofenac sodium 75 mg tablet,delayed release RxNorm: 11933 8 1 Tablet(s) PO BID for pain 05/14/2013 07/22/2013 Inactive allopurinol 300 mg tablet RxNorm: 104599 1 Tablet(s) PO QD 04/25/20 13 05/28/2013 Inactive alprazolam 0.5 mg tablet RxNorm: 323964 1 Tablet(s) PO BID May refill on 04/26/13 04/25/2013 06/23/2013 Inactive prn Celebrex 200 mg capsule RxNorm: 746192 1 Capsule(s) PO QD 04/16/2013 12/29/2013 Inactive alprazolam 0.5 mg tablet RxNorm: 759242 1 Tablet(s) PO BID May refill on 04/26/13 04/16/2013 04/24/2013 Inactive prn Soma 350 mg tablet RxNorm: 088554 1 Tablet(s) PO TID as needed for spasm 04/16/2013 No Stop Date Active Lasix 40 mg tablet RxNorm: 539078 1 Tablet(s) PO QAM s hould take potassium supplementation with this medication 04/16/2013 06/14/2013 Inactive clonidine 0.1 mg tablet RxNorm: 974385 1 Tablet(s) PO TID 04/16/2013 08/03/2013 Inactive replaces 0.2mg dose prednisone 20 mg tablet RxNorm: 722131 1 Tablet(s) PO BID 04/16/2013 04/20/2013 Inactive diclofenac sodium 75 mg tablet,delayed release RxNorm: 83652 8 1 Tablet(s) PO BID for pain 04/14/2013 05/13/2013 Inactive hydrocodone 10 mg-acetaminophen 325 mg tablet RxNorm: 909679 2 1-2 Tablet(s) PO QID as needed for severe pain 04/14/2013 No Stop Date Active Lasix 40 mg tablet RxNorm: 129895 1 Tablet(s) PO QAM s hould take potassium supplementation with this medication 03/31/2013 04/15/2013 Inactive Celebrex 200 mg capsule RxNorm: 327103 1 Capsule(s) PO QD 03/31/2013 04/15/2013 Inactive alprazolam 0.5 mg tablet RxNorm: 119640 1 Tablet(s) PO BID 03/28/20 13 04/15/2013 Inactive prn hydrocodone 10 mg-acetaminophen 325 mg tablet RxNorm: 029730 2 1-2 Tablet(s) PO QID as needed for severe pain 03/10/2013 No Stop Date Active metformin ER 500 mg 24 hr tablet,extended release RxNorm: 86 1018 1 Tablet(s) PO QD 03/06/2013 07/22/2013 Inactive clindamycin 300 mg capsule RxNorm: 291430 2 Capsule(s) PO TID 03/0503/14/2013 Inactive Zaroxolyn 2.5 mg tablet RxNorm: 372299 1 Tablet(s) PO QAM 03/05/2013 05/19/2015 Inactive amlodipine 10 mg tablet RxNorm: 572097 1 Tablet(s) PO QD 03/03/2013 0 05/25/2013 Inactive Norvasc 10 mg tablet RxNorm: 505353 1 Tablet(s) PO QD 02/28/201307/11 Inactive Celebrex 200 mg capsule RxNorm: 942204 1 Capsule(s) PO QD 02/28/2013 03/30/2013 Inactive diclofenac sodium 75 mg tablet,delayed release RxNorm: 55257 8 1 Tablet(s) PO BID for pain 02/14/2013 03/15/2013 Inactive Soma 350 mg tablet RxNorm: 357993 1 Tablet(s) PO TID as needed for spasm 02/14/2013 No Stop Date Active hydrocodone 10 mg-acetaminophen 325 mg tablet RxNorm: 079248 2 1-2 Tablet(s) PO QID as needed for severe pain 02/14/2013 No Stop Date Active Norvasc 10 mg tablet RxNorm: 122954 1 Tablet(s) PO QD 02/10/201302/09 Inactive Celebrex 200 mg capsule RxNorm: 761070 1 Capsule(s) PO QD 01/27/2013 01/26/2013 Inactive Premarin 1.25 mg tablet RxNorm: 756131 1-2 Tablet(s) PO QD 01/28/20 13 06/25/2013 Inactive alprazolam 0.5 mg tablet RxNorm: 892358 1 Tablet(s) PO BID 01/28/20 13 02/25/2013 Inactive prn amlodipine 5 mg tablet RxNorm: 331071 1 Tablet(s) PO QD 01/27/2013 Inactive Celebrex 200 mg capsule RxNorm: 406177 1 Capsule(s) PO QD 01/27/2013 02/27/2013 Inactive gabapentin 600 mg tablet RxNorm: 251346 1 Tablet(s) PO QHS 01/16/20 13 07/22/2013 Inactive Soma 350 mg tablet RxNorm: 561361 1 Tablet(s) PO TID as needed for spasm 01/15/2013 No Stop Date Active hydrocodone 10 mg-acetaminophen 325 mg tablet RxNorm: 186526 2 1-2 Tablet(s) PO QID as needed for severe pain 01/15/2013 No Stop Date Active Soma 350 mg tablet RxNorm: 795280 1 Tablet(s) PO TID as needed for spasm 01/13/2013 No Stop Date Active alprazolam 0.5 mg tablet RxNorm: 645438 1 Tablet(s) PO BID 12/31/19 13 01/26/2013 Inactive prn diclofenac sodium 75 mg tablet,delayed release RxNorm: 89714 8 1 Tablet(s) PO BID for pain 12/09/2012 01/07/2013 Inactive gabapentin 600 mg tablet RxNorm: 975568 1 Tablet(s) PO QHS 12/10/19 13 01/07/2013 Inactive hydrocodone 10 mg-acetaminophen 325 mg tablet RxNorm: 791814 2 1-2 Tablet(s) PO QID as needed for severe pain 12/02/2012 No Stop Date Active Levaquin 750 mg tablet RxNorm: 003213 1 Tablet(s) PO QD 11/21/2012 Inactive Singulair 10 mg tablet RxNorm: 677661 1 Tablet(s) PO QD 11/11/2012 Inactive clonidine 0.2 mg tablet RxNorm: 905150 1 Tablet(s) PO TID 11/11/2012 04/15/2013 Inactive alprazolam 0.5 mg tablet RxNorm: 105920 1 Tablet(s) PO BID 11/12/19 13 12/10/2012 Inactive prn Klor-Con 8 mEq tablet,extended release RxNorm: 011300 1 Tablet( s) PO BID 11/11/2012 03/04/2013 Inactive hydrocodone 10 mg-acetaminophen 325 mg tablet RxNorm: 304857 2 1-2 Tablet(s) PO QID as needed for severe pain 11/06/2012 No Stop Date Active alprazolam 0.5 mg tablet RxNorm: 339676 1 Tablet(s) PO BID 10/15/19 13 11/10/2012 Inactive prn hydrocodone-acetaminophen 10 mg-325 mg tablet RxNorm: 500400 2 1-2 Tablet(s) PO QID as needed for severe pain 10/10/2012 10/09/2012 Inactive allopurinol 300 mg tablet RxNorm: 710615 1 Tablet(s) PO QD 09/20/19 13 12/18/2012 Inactive alprazolam 0.5 mg tablet RxNorm: 723997 1 Tablet(s) PO BID 09/17/19 13 10/14/2012 Inactive prn hydrocodone-acetaminophen 10 mg-325 mg tablet RxNorm: 123339 2 1-2 Tablet(s) PO QID as needed for severe pain 08/22/2012 08/21/2012 Inactive Norvasc 10 mg tablet RxNorm: 487128 1 Tablet(s) PO QD 08/12/201201/10 Inactive Premarin 1.25 mg tablet RxNorm: 808254 1-2 Tablet(s) PO QD 07/30/20 12 12/26/2012 Inactive alprazolam 0.5 mg tablet RxNorm: 239870 1 Tablet(s) PO BID 07/29/20 12 08/27/2012 Inactive prn Klor-Con 8 mEq tablet,extended release RxNorm: 268120 1 Tablet( s) PO BID 07/29/2012 11/10/2012 Inactive hydrocodone-acetaminophen 10 mg-325 mg tablet RxNorm: 101517 2 1-2 Tablet(s) PO QID as needed for severe pain 07/29/2012 No Stop Date Active Premarin 1.25 mg tablet RxNorm: 878793 1-2 Tablet(s) PO QD 07/29/20 12 07/29/2012 Inactive clonidine 0.2 mg tablet RxNorm: 225848 1 Tablet(s) PO TID 07/29/2012 10/28/2012 Inactive ketorolac 10 mg tablet RxNorm: 766005 1 Tablet(s) PO QID prn he adache 07/18/2012 No Stop Date Active hydrocodone-acetaminophen 10 mg-325 mg tablet RxNorm: 602954 2 1-2 Tablet(s) PO QID as needed for severe pain 07/03/2012 No Stop Date Active amlodipine 5 mg tablet RxNorm: 421846 1 Tablet(s) PO QD 07/02/2012 Inactive allopurinol 300 mg tablet RxNorm: 601177 1 Tablet(s) PO QD 07/02/2009/19/2012 Inactive Celebrex 200 mg capsule RxNorm: 151255 1 Capsule(s) PO QD for j oint pain 06/26/2012 10/23/2012 Inactive diclofenac sodium 75 mg tablet,delayed release RxNorm: 10471 8 1 Tablet(s) PO BID for pain 06/19/2012 09/16/2012 Inactive hydrocodone-acetaminophen 10 mg-325 mg tablet RxNorm: 224486 2 1-2 Tablet(s) PO QID as needed for severe pain 06/10/2012 No Stop Date Active alprazolam 0.5 mg tablet RxNorm: 654585 1 Tablet(s) PO BID 06/03/20 12 07/02/2012 Inactive prn ketorolac 10 mg tablet RxNorm: 748824 1 Tablet(s) PO Q8H 05/27/2012 0 01/21/2019 Inactive as needed for headache hydrocodone-acetaminophen 10 mg-325 mg tablet RxNorm: 282167 2 1-2 Tablet(s) PO QID as needed for severe pain 05/15/2012 No Stop Date Active allopurinol 300 mg tablet RxNorm: 858850 1 Tablet(s) PO QD 05/14/20 12 06/12/2012 Inactive allopurinol 300 mg tablet RxNorm: 731363 1 Tablet(s) PO QD 05/14/20 12 05/13/2012 Inactive amlodipine 5 mg tablet RxNorm: 348229 1 Tablet(s) PO QD 05/01/2012 Inactive amlodipine 5 mg Tab RxNorm: 349373 1 Tablet(s) PO QD 05/01/201204/30 Inactive Celebrex 200 mg capsule RxNorm: 965242 1 Capsule(s) PO QD for j oint pain 05/01/2012 06/25/2012 Inactive Singulair 10 mg tablet RxNorm: 410274 1 Tablet(s) PO QD 05/01/2012 Inactive alprazolam 0.5 mg tablet RxNorm: 240350 1 Tablet(s) PO BID 05/01/2005/30/2012 Inactive prn Celebrex 200 mg Cap RxNorm: 681362 1 Capsule(s) PO QD for joint radu n 05/01/2012 04/30/2012 Inactive hydrocodone-acetaminophen 10 mg-325 mg tablet RxNorm: 162191 2 1-2 Tablet(s) PO QID as needed for severe pain 04/19/2012 No Stop Date Active Lasix 40 mg tablet RxNorm: 489799 1 Tablet(s) PO RAZA ramirez take potassium supplementation with this medication 04/05/2012 06/03/2012 Inactive alprazolam 0.5 mg Tab RxNorm: 565315 1 Tablet(s) PO BID 04/05/2012 Inactive prn hydrocodone-acetaminophen 10 mg-325 mg Tab RxNorm: 2197856 1-2 Tablet(s) PO QID as needed for severe pain 03/25/2012 03/24/2012 Inactive clonidine 0.2 mg Tab RxNorm: 573819 1 Tablet(s) PO TID 03/08/2012 Inactive alprazolam 0.5 mg Tab RxNorm: 008457 1 Tablet(s) PO BID 03/08/2012 Inactive prn Soma 350 mg tablet RxNorm: 324721 1 Tablet(s) PO TID for spasm 02/0903/18/2012 Inactive clonidine 0.2 mg tablet RxNorm: 309852 1 Tablet(s) PO TID 03/08/2012 07/28/2012 Inactive Celebrex 200 mg Cap RxNorm: 608091 1 Capsule(s) PO QD for joint radu n 03/01/2012 04/29/2012 Inactive amlodipine 5 mg Tab RxNorm: 342609 1 Tablet(s) PO QD 02/26/201202/24 Inactive amlodipine 5 mg Tab RxNorm: 258460 1 Tablet(s) PO QD 02/26/201204/25 Inactive Bactroban 2 % Ointment RxNorm: 030586 Application TOP QID to sores 02/23/2012 No Stop Date Active amlodipine 2.5 mg tablet RxNorm: 986744 1 Tablet(s) PO QHS 02/20/20 12 02/25/2012 Inactive doxycycline hyclate 100 mg Cap RxNorm: 7391521 1 Capsule(s) PO BID 02/20/2012 02/29/2012 Inactive hydrocodone-acetaminophen 10 mg-325 mg Tab RxNorm: 5972314 1-2 T ablet(s) PO QID 02/08/2012 No Stop Date Active alprazolam 0.5 mg Tab RxNorm: 059287 1 Tablet(s) PO BID 02/08/2012 Inactive prn Singulair 10 mg Tab RxNorm: 657610 1 Tablet(s) PO QD 02/08/201204/30 Inactive Soma 350 mg Tab RxNorm: 132974 1 Tablet(s) PO TID for spasm 012 03/07/2012 Inactive Soma 350 mg Tab RxNorm: 128859 1 Tablet(s) PO TID for spasm 012 02/05/2012 Inactive diclofenac sodium 75 mg tablet,delayed release RxNorm: 29738 8 1 Tablet(s) PO BID for pain 02/01/2012 03/18/2012 Inactive Celebrex 200 mg Cap RxNorm: 858985 1 Capsule(s) PO QD for joint radu n 01/30/2012 02/28/2012 Inactive Lasix 40 mg Tab RxNorm: 472951 1 Tablet(s) PO QAM 01/24/2012 03/18/20 12 Inactive potassium chloride ER 20 mEq tablet,extended release(part/cr yst) RxNorm: 534419 2 Tablet(s) PO BID 01/24/2012 02/22/2012 Inactive alprazolam 0.5 mg Tab RxNorm: 313705 1 Tablet(s) PO BID 01/11/2012 Inactive prn hydrocodone-acetaminophen 10 mg-325 mg Tab RxNorm: 6492582 1-2 T ablet(s) PO QID 01/11/2012 No Stop Date Active Ambien 10 mg Tab RxNorm: 003237 1 Tablet(s) PO QHS 01/11/2012 012 Inactive Klor-Con 8 mEq Tab RxNorm: 235143 1 Tablet(s) PO BID 01/11/201201/22 Inactive diclofenac sodium 75 mg Tab, Delayed Release RxNorm: 860912 1 Tablet(s) PO BID for pain 01/10/2012 01/31/2012 Inactive Ambien 10 mg Tab RxNorm: 790893 1 Tablet(s) PO QHS 12/11/2011 012 Inactive alprazolam 0.5 mg Tab RxNorm: 816283 1 Tablet(s) PO BID 12/11/2011 Inactive prn hydrocodone 10 mg-acetaminophen 325 mg tablet RxNorm: 261719 1-2 Tablet(s) PO TID 11/28/2011 No Stop Date Active as needed for pa in - Previous quantity #240, will start dosing for #180 in April 2011 per Doctor Td. Ambien 10 mg Tab RxNorm: 726335 1 Tablet(s) PO QHS 11/09/2011 012 Inactive alprazolam 0.5 mg Tab RxNorm: 965582 1 Tablet(s) PO BID 11/09/2011 Inactive prn hydrocodone-acetaminophen 10 mg-325 mg Tab RxNorm: 9234593 1-2 T ablet(s) PO TID 11/06/2011 No Stop Date Active as needed for pain - Previous quantity #240, will start dosing for #180 in April 2011 per Doctor Td. Singulair 10 mg Tab RxNorm: 859784 1 Tablet(s) PO QD 10/13/201110/12 Inactive Singulair 10 mg Tab RxNorm: 190252 1 Tablet(s) PO QD 10/13/201102/06 Inactive hydrocodone-acetaminophen 10 mg-325 mg Tab RxNorm: 3669829 1-2 T ablet(s) PO TID 10/10/2011 10/09/2011 Inactive as needed for pain - Previous quantity #240, will start dosing for #180 in April 2011 per Doctor Td. hydrocodone-acetaminophen 10 mg-325 mg Tab RxNorm: 9195174 1-2 T ablet(s) PO TID 10/09/2011 No Stop Date Active as needed for pain - Previous quantity #240, will start dosing for #180 in April 2011 per Doctor Td. Klor-Con 8 mEq Tab RxNorm: 233981 1 Tablet(s) PO BID 10/02/201101/09 Inactive triamterene 75 mg-hydrochlorothiazide 50 mg tablet RxNorm: 3 49157 1 Tablet(s) PO QD 09/14/2011 03/06/2013 Inactive Ambien 10 mg Tab RxNorm: 371012 1 Tablet(s) PO QHS 09/14/2011 012 Inactive hydrocodone-acetaminophen 10 mg-325 mg Tab RxNorm: 8559148 1-2 T ablet(s) PO TID 09/14/2011 No Stop Date Active as needed for pain - Previous quantity #240, will start dosing for #180 in April 2011 per Doctor Td. alprazolam 0.5 mg Tab RxNorm: 302756 1 Tablet(s) PO BID 09/14/2011 Inactive prn Zithromax 500 mg Tab RxNorm: 857424 1 Tablet(s) PO QD 09/13/201109/10 Inactive prednisone 20 mg Tab RxNorm: 249991 1 Tablet(s) PO BID 08/31/2011 Inactive Ambien 10 mg Tab RxNorm: 414501 1 Tablet(s) PO QHS 08/17/2011 011 Inactive hydrocodone-acetaminophen 10 mg-325 mg Tab RxNorm: 4201288 1-2 T ablet(s) PO TID 08/17/2011 No Stop Date Active as needed for pain - Previous quantity #240, will start dosing for #180 in April 2011 per Doctor Td. clonidine 0.2 mg Tab RxNorm: 739705 1 Tablet(s) PO TID 08/17/201112/2011 Inactive Ambien 10 mg Tab RxNorm: 479651 1 Tablet(s) PO QHS 08/17/2011 019 Inactive alprazolam 0.5 mg Tab RxNorm: 167373 1 Tablet(s) PO BID 08/17/2011 Inactive prn hydrocodone-acetaminophen 10 mg-325 mg Tab RxNorm: 4197327 1-2 T ablet(s) PO TID 08/17/2011 08/16/2011 Inactive as needed for pain - Previous quantity #240, will start dosing for #180 in April 2011 per Doctor Td. Singulair 10 mg Tab RxNorm: 941816 1 Tablet(s) PO QD 08/17/201108/16 Inactive Klor-Con 8 mEq Tab RxNorm: 123767 1 Tablet(s) PO QD 08/17/20112011 Inactive alprazolam 0.5 mg Tab RxNorm: 670267 1 Tablet(s) PO BID 07/20/2011 Inactive prn Ambien 10 mg Tab RxNorm: 088061 1 Tablet(s) PO QHS 07/20/2011 012 Inactive Singulair 10 mg Tab RxNorm: 845023 1 Tablet(s) PO QD 07/20/201107/19 Inactive Premarin 1.25 mg tablet RxNorm: 006114 2 Tablet(s) PO QD 07/20/2011 0 01/21/2019 Inactive Premarin 1.25 mg tablet RxNorm: 292725 1-2 Tablet(s) PO QD 07/20/20 11 12/16/2011 Inactive Premarin 1.25 mg Tab RxNorm: 984233 1-2 Tablet(s) PO QD 07/06/2011 Inactive alprazolam 0.5 mg Tab RxNorm: 830166 1 Tablet(s) PO BID 06/22/2011 Inactive prn alprazolam 0.5 mg Tab RxNorm: 230431 1 Tablet(s) PO BID 06/22/2011 Inactive prn Premarin 1.25 mg Tab RxNorm: 241169 1 Tablet(s) PO QD m ay do 90 day fill if desired 06/22/2011 07/05/2011 Inactive hydrocodone-acetaminophen 10 mg-325 mg Tab RxNorm: 5092554 1-2 T ablet(s) PO TID 06/22/2011 No Stop Date Active as needed for pain - Previous quantity #240, will start dosing for #180 in April 2011 per Doctor Td. clonidine 0.2 mg Tab RxNorm: 123053 1 Tablet(s) PO TID 05/25/201103/2011 Inactive triamterene-hydrochlorothiazide 75 mg-50 mg Tab RxNorm: 3108 18 1 Tablet(s) PO QD 05/25/2011 09/13/2011 Inactive alprazolam 0.5 mg Tab RxNorm: 267857 1 Tablet(s) PO BID 05/25/2011 Inactive prn hydrocodone-acetaminophen 10 mg-325 mg Tab RxNorm: 9210811 1-2 T ablet(s) PO TID 05/25/2011 No Stop Date Active as needed for pain - Previous quantity #240, will start dosing for #180 in April 2011 per Doctor Td. Robaxin-750 750 mg Tab RxNorm: 353354 2 Tablet(s) PO QHS 05/22/2011 1 Inactive prn spasm hydrocodone-acetaminophen 10 mg-325 mg Tab RxNorm: 5087070 1-2 T ablet(s) PO TID 04/26/2011 No Stop Date Active as needed for pain - Previous quantity #240, will start dosing for #180 in April 2011 per Doctor Td. alprazolam 0.5 mg Tab RxNorm: 908519 1 Tablet(s) PO BID 04/25/2011 Inactive prn Klor-Con 8 mEq Tab RxNorm: 235266 1 Tablet(s) PO QD 03/30/20112010 Inactive Klor-Con 8 mEq Tab RxNorm: 313262 1 Tablet(s) PO QD 03/29/20112010 Inactive hydrocodone-acetaminophen 10 mg-325 mg Tab RxNorm: 1696109 1-2 T ablet(s) PO TID 03/20/2011 04/25/2011 Inactive as needed for pain - Previous quantity #240, will start dosing for #180 in April 2011 per Doctor Td. alprazolam 0.5 mg Tab RxNorm: 057583 1 Tablet(s) PO BID prn 011 03/30/2011 Inactive Ambien 10 mg Tab RxNorm: 130157 1 Tablet(s) PO QHS 03/01/2011 011 Inactive cyclobenzaprine 10 mg Tab RxNorm: 509126 1 Tablet(s) PO TID 011 03/18/2012 Inactive cyclobenzaprine 10 mg Tab RxNorm: 612680 1 Tablet(s) PO TID 011 01/08/2011 Inactive cyclobenzaprine 10 mg Tab RxNorm: 827531 1 Tablet(s) PO TID 011 12/20/2010 Inactive terbinafine 250 mg Tab RxNorm: 085177 1 Tablet(s) PO QD 12/12/2010 Inactive triamterene-hydrochlorothiazide 75 mg-50 mg Tab RxNorm: 3108 18 1 Tablet(s) PO QD 12/07/2010 01/12/2020 Inactive Klor-Con 8 8 mEq Tab RxNorm: 735652 1 Tablet(s) PO QD 12/07/201001/08 Inactive Premarin 1.25 mg Tab RxNorm: 079214 2 Tablet(s) PO QD 12/07/201001/08 Inactive clonidine 0.2 mg Tab RxNorm: 036237 1 Tablet(s) PO TID 12/07/2010 Inactive hydrocodone-acetaminophen 7.5 mg-650 mg Tab RxNorm: 415473 1 Ta blet(s) PO Q4H 12/05/2010 01/21/2019 Inactive hydrocodone-acetaminophen 7.5 mg-650 mg Tab RxNorm: 876989 1 Ta blet(s) PO Q4H 10/26/2010 11/14/2010 Inactive hydrocodone-acetaminophen 7.5 mg-650 mg Tab RxNorm: 071515 1 Ta blet(s) PO Q4H 10/13/2010 10/25/2010 Inactive hydrocodone-acetaminophen 7.5 mg-650 mg Tab RxNorm: 866001 1 Ta blet(s) PO Q4H 09/15/2010 09/12/2010 Inactive alprazolam 0.5 mg Tab RxNorm: 420584 1 Tablet(s) PO BID prn 011 09/12/2010 Inactive terbinafine 250 mg Tab RxNorm: 654079 1 Tablet(s) PO QD 09/05/2010 Inactive hydrocodone-acetaminophen 7.5 mg-650 mg Tab RxNorm: 647847 1 Ta blet(s) PO Q4H 08/29/2010 09/17/2010 Inactive alprazolam 0.5 mg Tab RxNorm: 363259 1 Tablet(s) PO BID prn 010 09/27/2010 Inactive alprazolam 0.5 mg Tab RxNorm: 535836 1 Tablet(s) PO BID prn 010 09/06/2010 Inactive Klor-Con 8 mEq Tab RxNorm: 259234 1 Tablet(s) PO QD 08/08/20102010 Inactive hydrocodone-acetaminophen 7.5 mg-650 mg Tab RxNorm: 223290 1 Ta blet(s) PO Q4H 08/08/2010 08/27/2010 Inactive Ambien 10 mg Tab RxNorm: 453649 1 Tablet(s) PO QHS 08/08/2010 Inactive clonidine 0.2 mg Tab RxNorm: 522528 1 Tablet(s) PO TID 08/08/2010 Inactive Premarin 1.25 mg Tab RxNorm: 335987 2 Tablet(s) PO QD 08/08/201009/12 Inactive Ambien 10 mg Tab RxNorm: 710017 1 Tablet(s) PO QHS 07/18/2010 Inactive alprazolam 0.5 mg Tab RxNorm: 340152 1 Tablet(s) PO BID prn 010 08/07/2010 Inactive hydrocodone-acetaminophen 7.5 mg-650 mg Tab RxNorm: 819957 1 Ta blet(s) PO Q4H 07/12/2010 07/31/2010 Inactive clonidine 0.2 mg Tab RxNorm: 762823 1 Tablet(s) PO TID 06/20/2010 Inactive terbinafine 250 mg Tab RxNorm: 315386 1 Tablet(s) PO QD 05/24/2010 Inactive Clonidine 0.2 mg Tab RxNorm: 295655 1 Tablet(s) PO TID 05/24/201006/2010 Inactive Ambien 10 mg Tab RxNorm: 687631 1 Tablet(s) PO QHS 05/24/2010 010 Inactive alprazolam 0.5 mg Tab RxNorm: 250576 1 Tablet(s) PO BID 05/24/2010 Inactive Klor-Con 8 mEq Tab RxNorm: 473881 1 Tablet(s) PO QD 05/24/20102009 Inactive alprazolam 0.5 mg Tab RxNorm: 824079 2 Tablet(s) PO QD prn 05/24/2007/17/2010 Inactive triamterene-hydrochlorothiazide 75 mg-50 mg Tab RxNorm: 3108 18 1 Tablet(s) PO QD 05/24/2010 11/19/2010 Inactive Ambien 10 mg Tab RxNorm: 958564 1 Tablet(s) PO QHS 05/23/2010 010 Inactive Alprazolam 0.5 mg Tab RxNorm: 166474 2 Tablet(s) PO QD prn 05/23/20 10 05/23/2010 Inactive Premarin 1.25 mg Tab RxNorm: 787260 2 Tablet(s) PO QD 05/19/201007/12 Inactive Hydrocodone-Acetaminophen 7.5 mg-650 mg Tab RxNorm: 507387 1 Ta blet(s) PO Q4H 05/19/2010 03/20/2011 Inactive Prednisone 20 mg Tab RxNorm: 690584 1 Tablet(s) PO BID 05/17/2010 Inactive Prednisone 20 mg Tab RxNorm: 680579 1 Tablet(s) PO BID 05/06/201001/2010 Inactive Premarin 1.25 mg Tab RxNorm: 093469 Tablet(s) PO 2 -W-, and 1 Pb-Kr-Tsx-Sun 05/05/2010 08/02/2010 Inactive Premarin 1.25 mg Tab RxNorm: 462480 Tablet(s) PO 2 M-W-F, and 1 Nn-Jy-Ldh-Sun 05/04/2010 05/04/2010 Inactive Premarin 1.25 mg Tab RxNorm: 044159 Tablet(s) PO 2 M-W-F, and 1 Aa-Ik-Fim-Sun 05/04/2010 05/03/2010 Inactive Prednisone 20 mg Tab RxNorm: 771277 1 Tablet(s) PO BID 04/27/2010 Inactive Alprazolam 0.5 mg Tab RxNorm: 571046 2 Tablet(s) PO QD prn 04/26/20 10 05/22/2010 Inactive Clindamycin 300 mg Cap RxNorm: 518777 2 Capsule(s) PO TID 04/05/2010 04/18/2010 Inactive Terbinafine 250 mg Tab RxNorm: 986412 1 Tablet(s) PO QD 04/04/2010 Inactive Hydrocodone-Acetaminophen 7.5 mg-650 mg Tab RxNorm: 175081 1 Ta blet(s) PO Q4H 03/30/2010 04/18/2010 Inactive Avelox 400 mg Tab RxNorm: 612319 1 Tablet(s) PO QD 03/09/2010 010 Inactive Hydrocodone-Acetaminophen 7.5 mg-650 mg Tab RxNorm: 673306 1 Ta blet(s) PO Q4H 03/08/2010 03/27/2010 Inactive Alprazolam 0.5 mg Tab RxNorm: 854708 2 Tablet(s) PO QD prn 03/08/20 10 04/25/2010 Inactive Klor-Con 8 mEq Tab RxNorm: 682215 1 Tablet(s) PO QD when takes lasi x 03/07/2010 09/29/2019 Inactive Premarin 1.25 mg Tab RxNorm: 792588 1 Tablet(s) PO QD 03/03/201003/11 Inactive Alprazolam 0.5 mg Tab RxNorm: 407199 1 Tablet(s) PO BID PRN 010 No Stop Date Active triamterene-hydrochlorothiazide 75 mg-50 mg Tab RxNorm: 3108 18 1 Tablet(s) PO QD 02/09/2010 02/03/2011 Inactive Hydrocodone-Acetaminophen 10 mg-750 mg Tab RxNorm: 556012 1 Tablet(s) PO Q4H PRN 02/09/2010 03/20/2011 Inactive Clonidine 0.2 mg Tab RxNorm: 090770 1 Tablet(s) PO TID 01/13/201009/2009 Inactive Alprazolam 0.5 mg Tab RxNorm: 864074 1 Tablet(s) PO BID PRN 010 01/12/2010 Inactive Hydrocodone-Acetaminophen 10 mg-750 mg Tab RxNorm: 703063 1 Tablet(s) PO Q4H PRN 01/13/2010 01/12/2010 Inactive ANGELIQ 1 mg-0.5 mg Tab RxNorm: 8283046 1 Tablet(s) PO QD 12/27/2009 01/23/2010 Inactive Lasix 40 mg Tab RxNorm: 194438 1 Tablet(s) PO QAM 12/14/2009 06/11/20 10 Inactive Vitamin B12 1000mcg Tablet RxNorm: 1 Tablet(s) PO QD No Start Date Active cyclobenzaprine 10 mg tablet RxNorm: 765693 1 Tablet(s) PO TID as needed DO NOT USE WITH BACLOFEN No Start Date Active Vitamin D 5,000 unit Tab RxNorm: 1 Tablet(s) PO QD No Start Date Active vitamin E (dl, acetate) 400 unit Cap RxNorm: 884919 1 Capsule(s ) PO QD No Start Date Active Benadryl 25 mg Cap RxNorm: 1777226 Capsule(s) PO PRN No Start Date Inactive amitriptyline 100 mg tablet RxNorm: 665287 1 Tablet(s) PO QHS No St art Date 11/27/2016 Inactive Zithromax Z-Dustin 250 mg tablet RxNorm: 170040 Tablet(s) PO as di rected No Start Date 07/22/2013 Inactive Klor-Con 8 mEq tablet,extended release RxNorm: 261890 1 Tablet( s) PO BID No Start Date 07/28/2012 Inactive scopolamine 1.5 mg 72 hr Transderm Patch RxNorm: 783325 Application TD Q72H for motion sickness No Start Date 05/25/2013 Inactive Klonopin 1 mg tablet RxNorm: 962640 1-2 Tablet(s) PO QHS as nee ded for sleep No Start Date 06/20/2015 Inactive Klor-Con M20 mEq tablet,extended release RxNorm: 313192 2 Tablet(s) PO BID to use with lasix No Start Date 11/11/2013 Inactive Bystolic 5 mg tablet RxNorm: 743332 1 Tablet(s) PO QD No Start Date 1 Inactive Bystolic 10 mg tablet RxNorm: 321030 1 Tablet(s) PO BID No Start Da te 07/06/2015 Inactive Premarin 1.25 mg Tab RxNorm: 841425 Tablet(s) PO 2 -, and 1 -Sun No Start Date 05/03/2010 Inactive baclofen 20 mg tablet RxNorm: 719905 1 Tablet(s) PO TID as needed for muscle spasm No Start Date 07/22/2015 Inactive hydrocodone-acetaminophen 7.5 mg-650 mg Tab RxNorm: 240334 1 Tablet(s) PO Q4H as needed for pain No Start Date 03/20/2011 Inactive albuterol sulfate 1.25 mg/3 mL Neb Solution RxNorm: 355145 1 Unit Dose INH Q4H 2boxes No Start Date 09/06/2015 Inactive Butrans 20 mcg/hour Transderm Patch RxNorm: 375378 1 TD WEEKLY apply to skin weekly after removing previous. No Start Date 07/22/2013 Inactive Medrol (Dustin) 4 mg tablets in a dose pack RxNorm: 451718 Tablet(s) PO As Directed No Start Date 07/30/2016 Inactive hydrocodone-acetaminophen 10 mg-325 mg Tab RxNorm: 3822548 1-2 Tablet(s) PO TID as needed for pain No Start Date 03/19/2011 Inactive Klonopin 1 mg tablet RxNorm: 950070 1 Tablet(s) PO QHS No Start Date 02/28/2016 Inactive honey topical RxNorm: topical No Start Date 06/16/2018 Inactive Clonidine 0.2 mg Tab RxNorm: 791678 1 Tablet(s) PO TID No Start Date 01/12/2010 Inactive ketorolac 10 mg tablet RxNorm: 395368 1 Tablet(s) PO Q8H No Start D ate 03/18/2012 Inactive as needed for headache Singulair 10 mg Tab RxNorm: 897185 1 Tablet(s) PO QD No Start Date Inactive Premarin 1.25 mg Tab RxNorm: 713571 1 Tablet(s) PO QD No Start Date 1 Inactive Flonase 50 mcg/Actuation Nasal [place] RxNorm: 1674320 1 [place] AL BID No Start Date 03/18/2012 Inactive Terbinafine 250 mg Tab RxNorm: 220389 1 Tablet(s) PO QD No Start Da te 04/03/2010 Inactive Fexofenadine 180 mg Tab RxNorm: 6904883 1 Tablet(s) PO QD No Start Date 09/06/2015 Inactive baclofen 20 mg tablet RxNorm: 152416 1 Tablet(s) PO TID as needed N o Start Date 05/25/2014 Inactive Diovan 160 mg Tab RxNorm: 375447 1 Tablet(s) PO QD No Start Date 09/12 Inactive mupirocin 2 % topical ointment RxNorm: 054485 1 Application TOP QID No Start Date 04/25/2016 Inactive ZOFRAN ODT 4 mg Tab, Rapid Dissolve RxNorm: 745803 1 Tablet(s) PO Q4H No Start Date 03/18/2012 Inactive as needed for nausea and vomiting Alprazolam 0.5 mg Tab RxNorm: 806879 1 Tablet(s) PO BID PRN No Star t Date 01/12/2010 Inactive cyclobenzaprine 10 mg tablet RxNorm: 471497 1 Tablet(s) PO TID as needed for muscle spasm No Start Date 10/08/2017 Inactive Albuterol 0.083% Aerosol Solution RxNorm: 1 Appl ication INH Q4H Use one ampule every 4 hrs with nebulizer as needed for shortness of breath. No Start Date 10/09/2010 Inactive lorazepam 1 mg tablet RxNorm: 183320 1 1/2 Tablet(s) PO QHS No Star t Date 02/02/2016 Inactive Melatonin 3 mg Tab RxNorm: 688866 Tablet(s) PO PRN No Start Date 07/11 Inactive Medrol (Dustin) 4 mg Tabs in a Dose Pack RxNorm: 978385 Tablet(s) PO N o Start Date 11/28/2010 Inactive lorazepam 1 mg tablet RxNorm: 119509 1 Tablet(s) PO QHS as need ed for sleep No Start Date 01/30/2016 Inactive hydrocodone-acetaminophen 10 mg-325 mg Tab RxNorm: 7075490 1-2 Tablet(s) PO QID as needed for severe pain No Start Date 03/24/2012 Inactive celecoxib 200 mg capsule RxNorm: 477856 1 Capsule(s) PO BID No Star t Date 06/26/2019 Inactive amlodipine 5 mg-benazepril 20 mg capsule RxNorm: 960460 1 Capsu le(s) PO QD No Start Date 04/10/2017 Inactive Bystolic 20 mg tablet RxNorm: 927396 1/2 Tablet(s) PO QAM No Start Date 01/23/2016 Inactive Bystolic 20 mg tablet RxNorm: 978386 1 Tablet(s) PO QAM No Start Da te 04/25/2016 Inactive Ambien 10 mg Tab RxNorm: 509362 1 Tablet(s) PO QHS No Start Date 05/11 Inactive Klor-Con 8 mEq Tab RxNorm: 798815 1 Tablet(s) PO QD when takes lasix No Start Date 03/06/2010 Inactive aspirin 81 mg tablet RxNorm: 825657 1 Tablet(s) PO QD No Start Date 0 01/29/2018 Inactive hydrocodone-acetaminophen 10 mg-325 mg Tab RxNorm: 6662362 1-2 T ablet(s) PO QID No Start Date 01/10/2012 Inactive Bystolic 10 mg tablet RxNorm: 607677 1 Tablet(s) PO QAM take one daily in the morning. No Start Date 05/28/2013 Inactive nystatin 100,000 unit/mL Oral Susp RxNorm: 257536 5 Milliliter( s) PO QID No Start Date 03/18/2012 Inactive swish and spit scopolamine 1.5 mg 72 hr Transderm Patch RxNorm: 957899 1 Unit Dose TD Q72H for motion sickness No Start Date 12/23/2013 Inactive Hydrocodone-Acetaminophen 10 mg-750 mg Tab RxNorm: 789845 1 Tablet(s) PO Q4H PRN No Start Date 01/12/2010 Inactive Soma 350 mg tablet RxNorm: 031784 1 Tablet(s) PO TID as needed for spasm No Start Date 01/12/2013 Inactive baclofen 10 mg tablet RxNorm: 158412 1 Tablet(s) PO TID as needed for muscle spasm No Start Date 09/18/2019 Inactive Soma 350 mg Tab RxNorm: 264853 1 Tablet(s) PO TID for spasm No Star t Date 01/31/2012 Inactive Co Q-10 400 mg capsule RxNorm: 503263 1 Capsule(s) PO QD No Start D ate 01/21/2019 Inactive nystatin 100,000 unit/gram topical cream RxNorm: 266002 Applica tion TOP BID No Start Date 03/22/2015 Inactive Exforge 5 mg-160 mg Tab RxNorm: 500253 1 Tablet(s) PO QD No Start D ate 10/09/2010 Inactive Hydrocodone-Acetaminophen 7.5 mg-650 mg Tab RxNorm: 587285 1 Ta blet(s) PO Q4H No Start Date 03/07/2010 Inactive Robaxin-750 750 mg Tab RxNorm: 819148 1-2 Tablet(s) PO TID prn spasm No Start Date 05/21/2011 Inactive amlodipine 5 mg tablet RxNorm: 281178 1 Tablet(s) PO QHS No Start D ate 09/29/2015 Inactive oxycodone-acetaminophen 10 mg-325 mg tablet RxNorm: 7260651 1-2 Tablet(s) PO Q6H No Start Date 06/16/2018 Inactive Triamterene-Hydrochlorothiazide 75 mg-50 mg Tab RxNorm: 3108 18 1 Tablet(s) PO QD No Start Date 02/08/2010 Inactive Alprazolam 0.5 mg Tab RxNorm: 710499 2 Tablet(s) PO QD prn No Start Date 03/07/2010 Inactive Bystolic 20 mg tablet RxNorm: 976128 1 Tablet(s) PO QAM No Start Da te 08/17/2015 Inactive ketorolac 10 mg tablet RxNorm: 719059 1 Tablet(s) PO QID prn he adache No Start Date 07/17/2012 Inactive acyclovir 800 mg Tab RxNorm: 895294 1 Tablet(s) PO BID No Start Date 03/18/2012 Inactive duloxetine 60 mg capsule,delayed release RxNorm: 930375 1 Capsu le(s) PO QD No Start Date 09/29/2015 Inactive Norvasc 5 mg tablet RxNorm: 043367 1 Tablet(s) PO QHS No Start Date 1 10/18/2014 Inactive promethazine 25 mg tablet RxNorm: 639069 1 Tablet(s) PO Q8H use sparingly No Start Date 07/22/2013 Inactive alprazolam 0.5 mg tablet RxNorm: 501917 3 Tablet(s) PO QHS No Start Date 06/06/2015 Inactive Lunesta 3 mg tablet RxNorm: 842192 1 Tablet(s) PO QHS No Start Date 0 09/20/2017 Inactive hydrocodone-acetaminophen 10 mg-325 mg Tab RxNorm: 2289799 1-2 Tablet(s) PO TID as needed for pain No Start Date 12/10/2011 Inactive Coricidin HBP Cough & Cold 4 mg-30 mg Tab RxNorm: 6335167 Tablet (s) PO PRN No Start Date 10/09/2010 Inactive Bactroban 2 % Ointment RxNorm: 947335 Application TOP QID to so res No Start Date 02/22/2012 Inactive Flonase 50 mcg/actuation Nasal [place] RxNorm: 565986 2 [place] AL QHS No Start Date 03/03/2014 Inactive Medication Administered No Medication Administered data Immunizations Vaccine Codes Date Status Tetanus, Diptheria, Pertussis CVX: 115 02/27/2014 Results Observation Observation Code Item Item Code Result Date S [facility] Location COMPREHENSIVE METABOLIC 14916 AST 15 U/L 2019 Unknown COMPREHENSIVE METABOLIC 13146 ALT 13 U/L 2019 Unknown COMPREHENSIVE METABOLIC 46927 BUN 12 mg/dL 2019 Unknown COMPREHENSIVE METABOLIC 08356 ALBUMIN 3.9 g/dL 2019 Unknown COMPREHENSIVE METABOLIC 07285 CHLORIDE 97 mmol/L 2019 Unknown COMPREHENSIVE METABOLIC 34600 Bili Total 0.4 mg/dL 09/29 Unknown COMPREHENSIVE METABOLIC 86208 ALK PHOS 130 U/L 2019 Unknown COMPREHENSIVE METABOLIC 58489 SODIUM 136 mmol/L 09/29 Unknown COMPREHENSIVE METABOLIC 86526 CREATININE 0.92 mg/dL 09/11 Unknown COMPREHENSIVE METABOLIC 53697 CALCIUM 9.1 mg/dL 2019 Unknown COMPREHENSIVE METABOLIC 26884 POTASSIUM 4.4 mmol/L 09/29 Unknown COMPREHENSIVE METABOLIC 91706 Total Protein 6.2 g/dL Unknown COMPREHENSIVE METABOLIC 55817 Glucose 391 mg/dL 2019 Unknown COMPREHENSIVE METABOLIC 79351 Bicarbonate 30 mmol/L 09/11 Unknown COMPREHENSIVE METABOLIC 35769 AGAP 9 mmol/L 2019 Unknown MEAN GLUC 8608792 Calc Mean Gluc 332 mg/dL 09/29/2019 Unkn own COMPLETE BLOOD COUNT [id number] WBC 7.0 10e9/L 09/29/19 Unknown COMPLETE BLOOD COUNT [id number] RBC 4.69 10e12/L 2019 Unknown COMPLETE BLOOD COUNT [id number] HEMOGLOBIN 14.6 g/dL 09/29/19 Unknown COMPLETE BLOOD COUNT [id number] HEMATOCRIT 45.2 % 09/29/19 Unknown COMPLETE BLOOD COUNT [id number] MCV 96.4 fL 0 Unknown COMPLETE BLOOD COUNT [id number] MCH 31.1 pg 0 Unknown COMPLETE BLOOD COUNT [id number] MCHC 32.3 g/dL 0 Unknown COMPLETE BLOOD COUNT [id number] PLATELET COUNT 209 10e9/L Unknown COMPLETE BLOOD COUNT 3656204 Mean Plt Volume 9.8 fL Unknown COMPLETE BLOOD COUNT 1147214 Neut Auto 48.1 % 0 Unknown COMPLETE BLOOD COUNT [id number] Lymph Auto 36.5 % 09/29/19 Unknown COMPLETE BLOOD COUNT [id number] [place] Auto 8.6 % 0 Unknown COMPLETE BLOOD COUNT 8805802 RDW 13.4 % 0 Unknown COMPLETE BLOOD COUNT [id number] Eos Auto 6.5 % 0 Unknown COMPLETE BLOOD COUNT [id number] Baso Auto 0.3 % 0 Unknown COMPLETE BLOOD COUNT [id number] Neutrophil Abs 3.37 10e9/L Unknown COMPLETE BLOOD COUNT [id number] Lymphocyte Abs 2.56 10e9/L Unknown COMPLETE BLOOD COUNT [id number] Monocyte Abs 0.60 10e9/L 09/11 Unknown COMPLETE BLOOD COUNT [id number] Eosinophil Abs 0.46 10e9/L Unknown COMPLETE BLOOD COUNT [id number] RDW-SD 45.9 fL 0 Unknown COMPLETE BLOOD COUNT [id number] Basophil Abs 0.02 10e9/L 09/11 Unknown LIPID GROUP 00340 Cholesterol 248 mg/dL 09/29/2019 Unkno wn LIPID GROUP 15187 Triglyceride 898 mg/dL 09/29/2019 Unkn own LIPID GROUP 78929 HDL CHOLESTEROL 41 mg/dL 09/29/2019 U nknown LIPID GROUP 70188 Chol/HDL Ratio 6.05 ratio 09/29/2019 U nknown LIPID GROUP 68086 NON-HDL Chol 207 mg/dL 09/29/2019 Unkn own LIPID GROUP 63396 LDL Cholesterol N/A Trig >400 020 Unknown GLYCOSYLATED HEMOGLOBIN TEST 33492 Hgb A1c 01774-2 13.2 % 0 09/29/2019 Unknown FREE T4 06351 T4 Free 0.75 ng/dL 09/29/2019 Unknown GFR CALC 1550549 GFR Non Afr Amr >60 mL/min 09/29/2019 Un known GFR CALC 1997109 GFR Afr Amr >60 mL/min 09/29/2019 Unknow n THYROID STIMULATING HORMONE 57853 TSH 4.245 uIU/mL 09/29/2019 Unknown COMPLETE BLOOD COUNT [id number] WBC 10.7 10e9/L 018 Unknown COMPLETE BLOOD COUNT 8856001 RBC 4.59 10e12/L 2017 Unknown COMPLETE BLOOD COUNT [id number] HEMOGLOBIN 14.8 g/dL 12/11/19 18 Unknown COMPLETE BLOOD COUNT [id number] HEMATOCRIT 44.9 % 12/11/19 18 Unknown COMPLETE BLOOD COUNT [id number] MCV 97.8 fL 8 Unknown COMPLETE BLOOD COUNT 7670412 MCH 32.2 pg 8 Unknown COMPLETE BLOOD COUNT 8202682 MCHC 33.0 g/dL 8 Unknown COMPLETE BLOOD COUNT 7566546 PLATELET COUNT 261 10e9/L 10/2017 Unknown COMPLETE BLOOD COUNT 6846310 Mean Plt Volume 9.5 fL 10/2017 Unknown COMPLETE BLOOD COUNT 5503534 Neut Auto 59.9 % 8 Unknown COMPLETE BLOOD COUNT [id number] Lymph Auto 27.4 % 12/11/19 18 Unknown COMPLETE BLOOD COUNT [id number] [place] Auto 8.2 % 8 Unknown COMPLETE BLOOD COUNT 8845401 RDW 13.3 % 8 Unknown COMPLETE BLOOD COUNT 6958574 Eos Auto 4.1 % 8 Unknown COMPLETE BLOOD COUNT 1621275 Baso Auto 0.4 % 8 Unknown COMPLETE BLOOD COUNT [id number] Neutrophil Abs 6.41 10e9/L Unknown COMPLETE BLOOD COUNT 6636884 Lymphocyte Abs 2.93 10e9/L Unknown COMPLETE BLOOD COUNT [id number] Monocyte Abs 0.88 10e9/L 10/2017 Unknown COMPLETE BLOOD COUNT [id number] Eosinophil Abs 0.44 10e9/L Unknown COMPLETE BLOOD COUNT [id number] RDW-SD 46.2 fL 8 Unknown COMPLETE BLOOD COUNT [id number] Basophil Abs 0.04 10e9/L 10/2017 Unknown THYROID STIMULATING HORMONE 52007 TSH 4.015 uIU/mL 12/10/2017 Unknown COMPREHENSIVE METABOLIC 31313 AST 25 U/L 2017 Unknown COMPREHENSIVE METABOLIC 24546 ALT 17 U/L 2017 Unknown COMPREHENSIVE METABOLIC 00313 BUN 19 mg/dL 2017 Unknown COMPREHENSIVE METABOLIC 91918 ALBUMIN 4.0 g/dL 2017 Unknown COMPREHENSIVE METABOLIC 49834 CHLORIDE 91 mmol/L 2017 Unknown COMPREHENSIVE METABOLIC 47457 Bili Total 0.5 mg/dL 12/10 Unknown COMPREHENSIVE METABOLIC 01776 ALK PHOS 75 U/L 2017 Unknown COMPREHENSIVE METABOLIC 35622 SODIUM 136 mmol/L 12/10 Unknown COMPREHENSIVE METABOLIC 96626 CREATININE 1.05 mg/dL 10/2017 Unknown COMPREHENSIVE METABOLIC 86013 CALCIUM 8.9 mg/dL 2017 Unknown COMPREHENSIVE METABOLIC 25911 POTASSIUM 3.4 mmol/L 12/10 Unknown COMPREHENSIVE METABOLIC 46042 Total Protein 6.5 g/dL Unknown COMPREHENSIVE METABOLIC 12096 Glucose 138 mg/dL 2017 Unknown COMPREHENSIVE METABOLIC 54115 Bicarbonate 35 mmol/L 10/2017 Unknown COMPREHENSIVE METABOLIC 86428 AGAP 10 mmol/L 2017 Unknown MEAN GLUC 0206640 Calc Mean Gluc 171 mg/dL 12/10/2017 Unkn own LIPID GROUP 35694 Cholesterol 204 mg/dL 12/10/2017 Unkno wn LIPID GROUP 58779 Triglyceride 411 mg/dL 12/10/2017 Unkn own LIPID GROUP 89759 HDL CHOLESTEROL 50 mg/dL 12/10/2017 U nknown LIPID GROUP 17258 Chol/HDL Ratio 4.08 ratio 12/10/2017 U nknown LIPID GROUP 84224 NON-HDL Chol 154 mg/dL 12/10/2017 Unkn own LIPID GROUP 21503 LDL Cholesterol N/A Trig >400 018 Unknown GLYCOSYLATED HEMOGLOBIN TEST 59534 Hgb A1c 83730-0 7.6 % 0 12/10/2017 Unknown FREE T4 04357 T4 Free 1.40 ng/dL 12/10/2017 Unknown GFR CALC 9755835 GFR Non Afr Amr 55 mL/min 12/10/2017 Unk nown GFR CALC 9362034 GFR Afr Amr >60 mL/min 12/10/2017 Unknow n GFR CALC 5098904 GFR Non Afr Amr 48 mL/min 06/28/2017 Unk nown GFR CALC 6795922 GFR Afr Amr 59 mL/min 06/28/2017 Unknown COMPREHENSIVE METABOLIC 42949 AST 32 U/L 2016 Unknown COMPREHENSIVE METABOLIC 98197 ALT 22 U/L 2016 Unknown COMPREHENSIVE METABOLIC 00657 BUN 23 mg/dL 2016 Unknown COMPREHENSIVE METABOLIC 05797 ALBUMIN 4.7 g/dL 2016 Unknown COMPREHENSIVE METABOLIC 91759 CHLORIDE 89 mmol/L 2016 Unknown COMPREHENSIVE METABOLIC 27596 Bili Total 0.5 mg/dL 06/28 Unknown COMPREHENSIVE METABOLIC 07590 ALK PHOS 90 U/L 2016 Unknown COMPREHENSIVE METABOLIC 23545 SODIUM 135 mmol/L 06/28 Unknown COMPREHENSIVE METABOLIC 77107 CREATININE 1.18 mg/dL 06/10 Unknown COMPREHENSIVE METABOLIC 46589 CALCIUM 9.7 mg/dL 2016 Unknown COMPREHENSIVE METABOLIC 65089 POTASSIUM 3.5 mmol/L 06/28 Unknown COMPREHENSIVE METABOLIC 73408 Total Protein 7.7 g/dL Unknown COMPREHENSIVE METABOLIC 88770 Glucose 129 mg/dL 2016 Unknown COMPREHENSIVE METABOLIC 48443 Bicarbonate 34 mmol/L 06/10 Unknown COMPREHENSIVE METABOLIC 50309 AGAP 12 mmol/L 2016 Unknown LIPID GROUP 27443 HDL TEST 64 MG/DL 08/27/2014 Unknown LIPID GROUP 70781 TRIG 222 MG/DL 08/27/2014 Unknown LIPID GROUP 33764 TEST LDL 209 MG/DL 08/27/2014 Unknown LIPID GROUP 92229 CHOL 317 MG/DL 08/27/2014 Unknown LIPID GROUP 16255 RCHOL/HDL 4.95 RATIO 08/27/2014 Unknow n LIPID GROUP 62024 NON-HDL CH 253 MG/DL 08/27/2014 Unknow n GFR CALC 6923221 GFR AA >60 ML/MIN 08/27/2014 Unknown GFR CALC 4801464 GFR NON-AA >60 ML/MIN 08/27/2014 Unknown COMPLETE BLOOD COUNT 0491342 WBC 7.0 10e9/L 08/27/20 14 Unknown COMPLETE BLOOD COUNT [id number] RBC 4.98 10e12/L 2013 Unknown COMPLETE BLOOD COUNT 5735967 HGB 15.6 g/dL 4 Unknown COMPLETE BLOOD COUNT 3114534 HCT DET 46.5 % 4 Unknown COMPLETE BLOOD COUNT [id number] MCV 93.4 fL 4 Unknown COMPLETE BLOOD COUNT 1371613 MCH 31.3 pg 4 Unknown COMPLETE BLOOD COUNT 5506044 MCHC 33.5 g/dL 4 Unknown COMPLETE BLOOD COUNT 3391811 PLT 309 10e9/L 08/27/20 14 Unknown COMPLETE BLOOD COUNT 9759175 MPV 9.6 fL 4 Unknown COMPLETE BLOOD COUNT 4887196 CADEN % 57.2 % 4 Unknown COMPLETE BLOOD COUNT 6784993 LY % 33.2 % 4 Unknown COMPLETE BLOOD COUNT [id number] MON % 7.3 % 4 Unknown COMPLETE BLOOD COUNT [id number] EOS % 2.0 % 4 Unknown COMPLETE BLOOD COUNT [id number] BASO % 0.3 % 4 Unknown COMPLETE BLOOD COUNT 1551127 RDW 13.7 % 4 Unknown COMPLETE BLOOD COUNT [id number] ABS CADEN 4.00 10e9/L 014 Unknown COMPLETE BLOOD COUNT 9778211 ABS LYMPH 2.32 10e9/L 014 Unknown COMPLETE BLOOD COUNT [id number] ABS MONO 0.51 10e9/L 014 Unknown COMPLETE BLOOD COUNT [id number] ABS EOS 0.14 10e9/L 014 Unknown COMPLETE BLOOD COUNT 8542783 ABS BASO 0.02 10e9/L 014 Unknown COMPLETE BLOOD COUNT [id number] RDW-SD 45.1 fL 4 Unknown COMPREHENSIVE METABOLIC 69334 AST 13 U/L 2013 Unknown COMPREHENSIVE METABOLIC 50150 ALT 11 IU/L 2013 Unknown COMPREHENSIVE METABOLIC 41224 BUN 23 MG/DL 2013 Unknown COMPREHENSIVE METABOLIC 20425 ALBUMIN 4.4 GM/DL 2013 Unknown COMPREHENSIVE METABOLIC 76214 CHLORIDE 99 MMOL/L 2013 Unknown COMPREHENSIVE METABOLIC 86500 BILI TOT 0.5 MG/DL 2013 Unknown COMPREHENSIVE METABOLIC 97038 ALK PHOS 56 U/L 2013 Unknown COMPREHENSIVE METABOLIC 32048 SODIUM 138 MMOL/L 08/27 Unknown COMPREHENSIVE METABOLIC 65000 CREATININE 0.95 MG/DL 08/10 Unknown COMPREHENSIVE METABOLIC 75950 CALCIUM 9.8 MG/DL 2013 Unknown COMPREHENSIVE METABOLIC 76372 POTASSIUM 3.5 MMOL/L 08/27 Unknown COMPREHENSIVE METABOLIC 19889 PROT TOT 6.8 GM/DL 2013 Unknown COMPREHENSIVE METABOLIC 46342 Glucose 90 MG/DL 2013 Unknown COMPREHENSIVE METABOLIC 84114 BICARB 34 MMOL/L 2013 Unknown COMPREHENSIVE METABOLIC 17958 ANION GAP 5 MEQ/L 2013 Unknown LIPASE 54389 LIPASE 11 IU/L 07/21/2014 Unknown AMYLASE 10850 AMYLASE 39 IU/L 07/21/2014 Unknown HEMOGLOBIN A1C (GLYCOSYLATED) 2135139 A1C [facility] 47768-6 6.2 % 03/05/2013 Unknown THYROID STIMULATING HORMONE 40354 TSH 6.986 uIU/ML 03/05/2013 Unknown COMPLETE BLOOD COUNT [id number] WBC 12.7 10e9/L 013 Unknown COMPLETE BLOOD COUNT [id number] RBC 4.53 10e12/L 2012 Unknown COMPLETE BLOOD COUNT [id number] HGB 14.7 g/dL 3 Unknown COMPLETE BLOOD COUNT 1666851 HCT DET 43.1 % 3 Unknown COMPLETE BLOOD COUNT 7343217 MCV 95.1 fL 3 Unknown COMPLETE BLOOD COUNT 2003008 MCH 32.5 pg 3 Unknown COMPLETE BLOOD COUNT 4596915 MCHC 34.1 g/dL 3 Unknown COMPLETE BLOOD COUNT [id number] PLT 346 10e9/L 03/05/20 13 Unknown COMPLETE BLOOD COUNT 1002944 MPV 9.5 fL 3 Unknown COMPLETE BLOOD COUNT 8522068 CADEN % 67.6 % 3 Unknown COMPLETE BLOOD COUNT 0950836 LY % 22.1 % 3 Unknown COMPLETE BLOOD COUNT 9953204 MON % 6.6 % 3 Unknown COMPLETE BLOOD COUNT 0110077 EOS % 3.3 % 3 Unknown COMPLETE BLOOD COUNT 4792490 BASO % 0.4 % 3 Unknown COMPLETE BLOOD COUNT 9292032 RDW 14.0 % 3 Unknown COMPLETE BLOOD COUNT 8031650 ABS CADEN 8.59 10e9/L 013 Unknown COMPLETE BLOOD COUNT 5653661 ABS LYMPH 2.81 10e9/L 013 Unknown COMPLETE BLOOD COUNT 2044569 ABS MONO 0.84 10e9/L 013 Unknown COMPLETE BLOOD COUNT [id number] ABS EOS 0.42 10e9/L 013 Unknown COMPLETE BLOOD COUNT 8367934 ABS BASO 0.05 10e9/L 013 Unknown COMPLETE BLOOD COUNT 8422036 RDW-SD 46.0 fL 3 Unknown FREE T4 84839 FREE T4 1.14 NG/DL 03/05/2013 Unknown COMPREHENSIVE METABOLIC 54265 AST 17 U/L 2012 Unknown COMPREHENSIVE METABOLIC 18623 ALT 12 IU/L 2012 Unknown COMPREHENSIVE METABOLIC 39794 BUN 24 MG/DL 2012 Unknown COMPREHENSIVE METABOLIC 02803 ALBUMIN 4.2 GM/DL 2012 Unknown COMPREHENSIVE METABOLIC 99963 CHLORIDE 93 MMOL/L 2012 Unknown COMPREHENSIVE METABOLIC 28852 BILI TOT 0.5 MG/DL 2012 Unknown COMPREHENSIVE METABOLIC 93895 ALK PHOS 75 U/L 2012 Unknown COMPREHENSIVE METABOLIC 68350 SODIUM 141 MMOL/L 03/05 Unknown COMPREHENSIVE METABOLIC 16633 CREATININE 1.36 MG/DL 02/09 Unknown COMPREHENSIVE METABOLIC 00770 CALCIUM 9.2 MG/DL 2012 Unknown COMPREHENSIVE METABOLIC 15438 POTASSIUM 3.1 MMOL/L 03/05 Unknown COMPREHENSIVE METABOLIC 12150 PROT TOT 6.9 GM/DL 2012 Unknown COMPREHENSIVE METABOLIC 55365 Glucose 123 MG/DL 2012 Unknown COMPREHENSIVE METABOLIC 89080 BICARB 36 MMOL/L 2012 Unknown COMPREHENSIVE METABOLIC 55881 ANION GAP 12 MEQ/L 2012 Unknown GFR CALC 7643760 GFR AA 51.0L ML/MIN 03/05/2013 Unknow n GFR CALC 2273718 GFR NON-AA 42.0L ML/MIN 03/05/2013 Unkno wn COMPREHENSIVE METABOLIC 51822 AST 14 U/L 2012 Unknown COMPREHENSIVE METABOLIC 10607 ALT 11 IU/L 2012 Unknown COMPREHENSIVE METABOLIC 03005 BUN 16 MG/DL 2012 Unknown COMPREHENSIVE METABOLIC 28058 ALBUMIN 4.2 GM/DL 2012 Unknown COMPREHENSIVE METABOLIC 21979 CHLORIDE 98 MMOL/L 2012 Unknown COMPREHENSIVE METABOLIC 07555 BILI TOT 0.4 MG/DL 2012 Unknown COMPREHENSIVE METABOLIC 67579 ALK PHOS 77 U/L 2012 Unknown COMPREHENSIVE METABOLIC 73020 SODIUM 139 MMOL/L 09/25 Unknown COMPREHENSIVE METABOLIC 05710 CREATININE 0.86 MG/DL 09/10 Unknown COMPREHENSIVE METABOLIC 49546 CALCIUM 9.5 MG/DL 2012 Unknown COMPREHENSIVE METABOLIC 49123 POTASSIUM 3.8 MMOL/L 09/25 Unknown COMPREHENSIVE METABOLIC 30892 PROT TOT 6.8 GM/DL 2012 Unknown COMPREHENSIVE METABOLIC 10745 Glucose 91 MG/DL 2012 Unknown COMPREHENSIVE METABOLIC 04601 BICARB 32 MMOL/L 2012 Unknown COMPREHENSIVE METABOLIC 51405 ANION GAP 9 MEQ/L 2012 Unknown FREE T4 02786 FREE T4 0.98 NG/DL 09/25/2012 Unknown THYROID STIMULATING HORMONE 40391 TSH 1.736 uIU/ML 09/25/2012 Unknown C-REACTIVE PROTEIN (CRP) QUANT 23321 CRP 2.3 MG/DL 09/25/2012 Unknown COMPLETE BLOOD COUNT 1307730 WBC 11.9 10e9/L 013 Unknown COMPLETE BLOOD COUNT 8860496 RBC 4.87 10e12/L 2012 Unknown COMPLETE BLOOD COUNT 6869485 HGB 15.1 g/dL 3 Unknown COMPLETE BLOOD COUNT 6591712 HCT DET 44.8 % 3 Unknown COMPLETE BLOOD COUNT 9436713 MCV 92.0 fL 3 Unknown COMPLETE BLOOD COUNT 2965617 MCH 31.0 pg 3 Unknown COMPLETE BLOOD COUNT 7743654 MCHC 33.7 g/dL 3 Unknown COMPLETE BLOOD COUNT 0183124 PLT 343 10e9/L 09/25/19 13 Unknown COMPLETE BLOOD COUNT 6493219 MPV 9.0 fL 3 Unknown COMPLETE BLOOD COUNT 5654804 CADEN % 68.2 % 3 Unknown COMPLETE BLOOD COUNT 1324482 LY % 22.4 % 3 Unknown COMPLETE BLOOD COUNT 3792782 MON % 6.4 % 3 Unknown COMPLETE BLOOD COUNT [id number] EOS % 2.7 % 3 Unknown COMPLETE BLOOD COUNT 4109587 BASO % 0.3 % 3 Unknown COMPLETE BLOOD COUNT 1408141 RDW 13.8 % 3 Unknown COMPLETE BLOOD COUNT [id number] ABS CADEN 8.12 10e9/L 013 Unknown COMPLETE BLOOD COUNT 1569182 ABS LYMPH 2.67 10e9/L 013 Unknown COMPLETE BLOOD COUNT 2689667 ABS MONO 0.76 10e9/L 013 Unknown COMPLETE BLOOD COUNT [id number] ABS EOS 0.32 10e9/L 013 Unknown COMPLETE BLOOD COUNT [id number] ABS BASO 0.04 10e9/L 013 Unknown COMPLETE BLOOD COUNT 5205793 RDW-SD 45.6 fL 3 Unknown GFR CALC 8910451 GFR AA >60 ML/MIN 09/25/2012 Unknown GFR CALC 6427450 GFR NON-AA >60 ML/MIN 09/25/2012 Unknown ERYTHROCYTE SEDIMENTATION RATE 32693 ESR 19 MM/HR 05/06/2012 Unknown VITAMIN B 12 FOLIC ACID 28452|31109 VIT B 12 922 PG/ML 04/11 Unknown VITAMIN B 12 FOLIC ACID 86968|07985 FOLIC ACID 13.6 NG/ML Unknown URIC ACID 63337 URIC ACID 7.8 MG/DL 05/06/2012 Unknown COMPLETE BLOOD COUNT 51682 WBC 11.9 10e9/L 012 Unknown COMPLETE BLOOD COUNT 59544 RBC 5.30 10e12/L 2011 Unknown COMPLETE BLOOD COUNT 00820 HGB 16.6 g/dL 2 Unknown COMPLETE BLOOD COUNT 98787 HCT DET 47.2 % 2 Unknown COMPLETE BLOOD COUNT 82302 MCV 89.1 fL 2 Unknown COMPLETE BLOOD COUNT 34579 MCH 31.3 pg 2 Unknown COMPLETE BLOOD COUNT 98444 MCHC 35.2 g/dL 2 Unknown COMPLETE BLOOD COUNT 31197 PLT 362 10e9/L 05/06/20 12 Unknown COMPLETE BLOOD COUNT 15493 MPV 9.4 fL 2 Unknown COMPLETE BLOOD COUNT 55058 CADEN % 68.2 % 2 Unknown COMPLETE BLOOD COUNT 29304 LY % 22.0 % 2 Unknown COMPLETE BLOOD COUNT 81091 MON % 6.9 % 2 Unknown COMPLETE BLOOD COUNT 85796 EOS % 2.6 % 2 Unknown COMPLETE BLOOD COUNT 01701 BASO % 0.3 % 2 Unknown COMPLETE BLOOD COUNT 83668 RDW 12.8 % 2 Unknown COMPLETE BLOOD COUNT 33499 ABS CADEN 8.12 10e9/L 012 Unknown COMPLETE BLOOD COUNT 29158 ABS LYMPH 2.62 10e9/L 012 Unknown COMPLETE BLOOD COUNT 24092 ABS MONO 0.82 10e9/L 012 Unknown COMPLETE BLOOD COUNT 35614 ABS EOS 0.31 10e9/L 012 Unknown COMPLETE BLOOD COUNT 76566 ABS BASO 0.04 10e9/L 012 Unknown COMPLETE BLOOD COUNT 81122 RDW-SD 41.5 fL 2 Unknown GFR CALC [id number] GFR AA >60 ML/MIN 05/06/2012 Unknown GFR CALC [id number] GFR NON-AA 58.0L ML/MIN 05/06/2012 Unkno wn FREE T4 06232 FREE T4 1.15 NG/DL 05/06/2012 Unknown THYROID STIMULATING HORMONE 61998 TSH 1.568 uIU/ML 05/06/2012 Unknown COMPREHENSIVE METABOLIC 61818 AST 20 U/L 2011 Unknown COMPREHENSIVE METABOLIC 28740 ALT 12 IU/L 2011 Unknown COMPREHENSIVE METABOLIC 93846 BUN 20 MG/DL 2011 Unknown COMPREHENSIVE METABOLIC 58996 ALBUMIN 4.5 GM/DL 2011 Unknown COMPREHENSIVE METABOLIC 72897 CHLORIDE 91 MMOL/L 2011 Unknown COMPREHENSIVE METABOLIC 03527 BILI TOT 0.4 MG/DL 2011 Unknown COMPREHENSIVE METABOLIC 70771 ALK PHOS 73 U/L 2011 Unknown COMPREHENSIVE METABOLIC 88681 SODIUM 139 MMOL/L 05/06 Unknown COMPREHENSIVE METABOLIC 60256 CREATININE 1.02 MG/DL 04/11 Unknown COMPREHENSIVE METABOLIC 18170 CALCIUM 9.7 MG/DL 2011 Unknown COMPREHENSIVE METABOLIC 24440 POTASSIUM 3.1 MMOL/L 05/06 Unknown COMPREHENSIVE METABOLIC 99602 PROT TOT 7.3 GM/DL 2011 Unknown COMPREHENSIVE METABOLIC 35516 Glucose 118 MG/DL 2011 Unknown COMPREHENSIVE METABOLIC 27739 BICARB 33 MMOL/L 2011 Unknown COMPREHENSIVE METABOLIC 68182 ANION GAP 15 MEQ/L 2011 Unknown Procedures Procedure Codes Date ROUTINE VENIPUNCTURE CPT-4: 86790 09/29/2019 URINALYSIS NONAUTO W/O SCOPE CPT-4: 76479 09/29/2019 COMPREHEN METABOLIC PANEL CPT-4: 22247 09/29/2019 LIPID PANEL CPT-4: 02289 09/29/2019 A1C HPLC CPT-4: 87305 09/29/2019 ASSAY OF FREE THYROXINE CPT-4: 43044 09/29/2019 ASSAY THYROID STIM HORMONE CPT-4: 41880 09/29/2019 COMPLETE CBC W/AUTO DIFF WBC CPT-4: 87036 09/29/2019 URINALYSIS NONAUTO W/O SCOPE CPT-4: 39545 09/30/2018 MICROALBUMIN QUANTITATIVE CPT-4: 22164 09/30/2018 CEFTRIAXONE SODIUM INJECTION CPT-4: J0696 06/19/2018 THER/PROPH/DIAG INJ SC/IM CPT-4: 77370 06/19/2018 CEFTRIAXONE SODIUM INJECTION CPT-4: J0696 06/17/2018 THER/PROPH/DIAG INJ SC/IM CPT-4: 78539 06/17/2018 THER/PROPH/DIAG INJ SC/IM CPT-4: 93676 05/16/2018 KETOROLAC TROMETHAMINE INJ CPT-4: J1885 05/16/2018 ONDANSETRON HCL INJECTION CPT-4: J2405 05/16/2018 THER/PROPH/DIAG INJ SC/IM CPT-4: 88564 05/16/2018 ROUTINE VENIPUNCTURE CPT-4: 32383 03/20/2018 COMPREHEN METABOLIC PANEL CPT-4: 12979 03/20/2018 DEXAMETHASONE SODIUM PHOS CPT-4: J1100 02/11/2018 THER/PROPH/DIAG INJ SC/IM CPT-4: 19246 02/11/2018 TRIAMCINOLONE ACET INJ NOS CPT-4: J3301 02/11/2018 CEFTRIAXONE SODIUM INJECTION CPT-4: J0696 02/01/2018 THER/PROPH/DIAG INJ SC/IM CPT-4: 40903 02/01/2018 CEFTRIAXONE SODIUM INJECTION CPT-4: J0696 01/30/2018 THER/PROPH/DIAG INJ SC/IM CPT-4: 99107 01/30/2018 ROUTINE VENIPUNCTURE CPT-4: 23610 12/10/2017 ASSAY OF FREE THYROXINE CPT-4: 12229 12/10/2017 ASSAY THYROID STIM HORMONE CPT-4: 39601 12/10/2017 COMPREHEN METABOLIC PANEL CPT-4: 52844 12/10/2017 COMPLETE CBC W/AUTO DIFF WBC CPT-4: 95848 12/10/2017 LIPID PANEL CPT-4: 14006 12/10/2017 A1C HPLC CPT-4: 33042 12/10/2017 CEFTRIAXONE SODIUM INJECTION CPT-4: J0696 12/10/2017 THER/PROPH/DIAG INJ SC/IM CPT-4: 34492 12/10/2017 CEFTRIAXONE SODIUM INJECTION CPT-4: J0696 12/07/2017 THER/PROPH/DIAG INJ SC/IM CPT-4: 82222 12/07/2017 DEXAMETHASONE SODIUM PHOS CPT-4: J1100 12/07/2017 THER/PROPH/DIAG INJ SC/IM CPT-4: 27892 12/07/2017 CEFTRIAXONE SODIUM INJECTION CPT-4: J0696 10/08/2017 THER/PROPH/DIAG INJ SC/IM CPT-4: 56364 10/08/2017 CEFTRIAXONE SODIUM INJECTION CPT-4: J0696 09/21/2017 THER/PROPH/DIAG INJ SC/IM CPT-4: 37298 09/21/2017 CEFTRIAXONE SODIUM INJECTION CPT-4: J0696 09/20/2017 THER/PROPH/DIAG INJ SC/IM CPT-4: 27105 09/20/2017 REMOVAL OF NAIL PLATE CPT-4: 57642 08/29/2017 THER/PROPH/DIAG INJ SC/IM CPT-4: 74131 08/29/2017 TRIAMCINOLONE ACET INJ NOS CPT-4: J3301 08/29/2017 CEFTRIAXONE SODIUM INJECTION CPT-4: J0696 08/29/2017 THER/PROPH/DIAG INJ SC/IM CPT-4: 32422 08/29/2017 DESTRUCT PREMALG LESION (Cryosurgery) CPT-4: 35467 ROUTINE VENIPUNCTURE CPT-4: 34891 06/27/2017 ASSAY OF FREE THYROXINE CPT-4: 47800 06/27/2017 ASSAY THYROID STIM HORMONE CPT-4: 23106 06/27/2017 COMPREHEN METABOLIC PANEL CPT-4: 03408 06/27/2017 COMPLETE CBC W/AUTO DIFF WBC CPT-4: 25462 06/27/2017 EXC TR-EXT B9+REECE 0.5 CM< CPT-4: 37092 01/24/2017 THER/PROPH/DIAG INJ SC/IM CPT-4: 43220 08/02/2016 DEXAMETHASONE SODIUM PHOS CPT-4: J1100 08/02/2016 DESTRUCT PREMALG LESION (Cryosurgery) CPT-4: 61123 EXC TR-EXT B9+REECE 0.5 CM< CPT-4: 11971 08/01/2016 AEROBIC WOUND CULTURE & STN CPT-4: 19198 07/06/2016 CEFTRIAXONE SODIUM INJECTION CPT-4: J0696 05/25/2016 THER/PROPH/DIAG INJ SC/IM CPT-4: 68976 05/25/2016 THER/PROPH/DIAG INJ SC/IM CPT-4: 49001 04/26/2016 DEXAMETHASONE SODIUM PHOS CPT-4: J1100 04/26/2016 CEFTRIAXONE SODIUM INJECTION CPT-4: J0696 04/26/2016 THER/PROPH/DIAG INJ SC/IM CPT-4: 43951 04/26/2016 THER/PROPH/DIAG INJ SC/IM CPT-4: 97028 02/09/2016 TRIAMCINOLONE ACET INJ NOS CPT-4: J3301 02/09/2016 URINALYSIS NONAUTO W/O SCOPE CPT-4: 81085 01/24/2016 URINE CULTURE/ COLONY COUNT CPT-4: 42400 01/24/2016 THER/PROPH/DIAG INJ SC/IM CPT-4: 08999 12/08/2015 TRIAMCINOLONE ACET INJ NOS CPT-4: J3301 12/08/2015 THER/PROPH/DIAG INJ SC/IM CPT-4: 15204 10/07/2015 TRIAMCINOLONE ACET INJ NOS CPT-4: J3301 10/07/2015 DESTRUCT PREMALG LESION (Cryosurgery) CPT-4: 98962 THER/PROPH/DIAG INJ SC/IM CPT-4: 80035 03/16/2015 METHYLPREDNISOLONE 40 MG INJ CPT-4: J1030 03/16/2015 DESTRUCT PREMALG LESION (Cryosurgery) CPT-4: 26617 THER/PROPH/DIAG INJ SC/IM CPT-4: 97203 09/11/2014 METHYLPREDNISOLONE 40 MG INJ CPT-4: J1030 09/11/2014 TRIAMCINOLONE ACET INJ NOS CPT-4: J3301 09/11/2014 CEFTRIAXONE SODIUM INJECTION CPT-4: J0696 09/11/2014 THER/PROPH/DIAG INJ SC/IM CPT-4: 31955 09/11/2014 ROUTINE VENIPUNCTURE CPT-4: 56229 08/27/2014 COMPREHEN METABOLIC PANEL CPT-4: 98327 08/27/2014 COMPLETE CBC W/AUTO DIFF WBC CPT-4: 72650 08/27/2014 LIPID PANEL CPT-4: 96634 08/27/2014 ROUTINE VENIPUNCTURE CPT-4: 07054 07/21/2014 ASSAY OF AMYLASE CPT-4: 80468 07/21/2014 ASSAY OF LIPASE CPT-4: 90628 07/21/2014 THER/PROPH/DIAG INJ SC/IM CPT-4: 54315 07/15/2014 TRIAMCINOLONE ACET INJ NOS CPT-4: J3301 07/15/2014 ROUTINE VENIPUNCTURE CPT-4: 67267 05/14/2014 ASSAY OF FREE THYROXINE CPT-4: 41041 05/14/2014 ASSAY THYROID STIM HORMONE CPT-4: 43105 05/14/2014 COMPREHEN METABOLIC PANEL CPT-4: 67273 05/14/2014 COMPLETE CBC W/AUTO DIFF WBC CPT-4: 36701 05/14/2014 LIPID PANEL CPT-4: 86474 05/14/2014 CEFTRIAXONE SODIUM INJECTION CPT-4: J0696 04/21/2014 THER/PROPH/DIAG INJ SC/IM CPT-4: 46070 04/21/2014 THER/PROPH/DIAG INJ SC/IM CPT-4: 09753 04/21/2014 TRIAMCINOLONE ACET INJ NOS CPT-4: J3301 04/21/2014 THER/PROPH/DIAG INJ SC/IM CPT-4: 89523 03/04/2014 METHYLPREDNISOLONE 40 MG INJ CPT-4: J1030 03/04/2014 TRIAMCINOLONE ACET INJ NOS CPT-4: J3301 03/04/2014 CEFTRIAXONE SODIUM INJECTION CPT-4: J0696 03/04/2014 THER/PROPH/DIAG INJ SC/IM CPT-4: 91447 03/04/2014 TDAP VACCINE 7 YRS/> IM CPT-4: 50781 02/27/2014 IMMUNIZATION ADMIN CPT-4: 65811 02/27/2014 DESTRUCT PREMALG LESION (Cryosurgery) CPT-4: 09679 DESTRUCT PREMALG LES 2-14 CPT-4: 53403 01/13/2014 THER/PROPH/DIAG INJ SC/IM CPT-4: 55756 10/21/2013 METHYLPREDNISOLONE 40 MG INJ CPT-4: J1030 10/21/2013 TRIAMCINOLONE ACET INJ NOS CPT-4: J3301 10/21/2013 CEFTRIAXONE SODIUM INJECTION CPT-4: J0696 08/27/2013 THER/PROPH/DIAG INJ SC/IM CPT-4: 53457 08/27/2013 THER/PROPH/DIAG INJ SC/IM CPT-4: 98097 08/27/2013 METHYLPREDNISOLONE 40 MG INJ CPT-4: J1030 08/27/2013 TRIAMCINOLONE ACET INJ NOS CPT-4: J3301 08/27/2013 THER/PROPH/DIAG INJ SC/IM CPT-4: 27128 06/23/2013 METHYLPREDNISOLONE 40 MG INJ CPT-4: J1030 06/23/2013 TRIAMCINOLONE ACET INJ NOS CPT-4: J3301 06/23/2013 THER/PROPH/DIAG INJ SC/IM CPT-4: 89186 05/26/2013 METHYLPREDNISOLONE 40 MG INJ CPT-4: J1030 05/26/2013 TRIAMCINOLONE ACET INJ NOS CPT-4: J3301 05/26/2013 ROUTINE VENIPUNCTURE CPT-4: 07499 03/05/2013 ASSAY OF FREE THYROXINE CPT-4: 78787 03/05/2013 ASSAY THYROID STIM HORMONE CPT-4: 30108 03/05/2013 COMPREHEN METABOLIC PANEL CPT-4: 01526 03/05/2013 COMPLETE CBC W/AUTO DIFF WBC CPT-4: 29478 03/05/2013 A1C GLYCOSYLATED HEMOGLOBIN TEST CPT-4: 31133 013 DRAIN/INJECT JOINT/BURSA CPT-4: 53509 12/04/2012 METHYLPREDNISOLONE 40 MG INJ CPT-4: J1030 12/04/2012 TRIAMCINOLONE ACET INJ NOS CPT-4: J3301 12/04/2012 CEFTRIAXONE SODIUM INJECTION CPT-4: J0696 11/21/2012 THER/PROPH/DIAG INJ SC/IM CPT-4: 32104 11/21/2012 THER/PROPH/DIAG INJ SC/IM CPT-4: 06904 10/14/2012 METHYLPREDNISOLONE 40 MG INJ CPT-4: J1030 10/14/2012 TRIAMCINOLONE ACET INJ NOS CPT-4: J3301 10/14/2012 URINALYSIS NONAUTO W/O SCOPE CPT-4: 45621 09/27/2012 ROUTINE VENIPUNCTURE CPT-4: 11238 09/25/2012 ASSAY OF FREE THYROXINE CPT-4: 63851 09/25/2012 ASSAY THYROID STIM HORMONE CPT-4: 46512 09/25/2012 COMPREHEN METABOLIC PANEL CPT-4: 05086 09/25/2012 COMPLETE CBC W/AUTO DIFF WBC CPT-4: 20898 09/25/2012 C-REACTIVE PROTEIN CPT-4: 63759 09/25/2012 THER/PROPH/DIAG INJ SC/IM CPT-4: 56187 08/29/2012 METHYLPREDNISOLONE 40 MG INJ CPT-4: J1030 08/29/2012 TRIAMCINOLONE ACET INJ NOS CPT-4: J3301 08/29/2012 DESTRUCT PREMALG LESION (Cryosurgery) CPT-4: 05074 THER/PROPH/DIAG INJ SC/IM CPT-4: 65331 05/06/2012 METHYLPREDNISOLONE 40 MG INJ CPT-4: J1030 05/06/2012 TRIAMCINOLONE ACET INJ NOS CPT-4: J3301 05/06/2012 VITAMIN B 12 FOLIC ACID CPT-4: 59016|41445 05/06/2012 RBC SED RATE AUTOMATED CPT-4: 11884 05/06/2012 ROUTINE VENIPUNCTURE CPT-4: 54383 05/06/2012 ASSAY OF FREE THYROXINE CPT-4: 61611 05/06/2012 ASSAY THYROID STIM HORMONE CPT-4: 59526 05/06/2012 COMPREHEN METABOLIC PANEL CPT-4: 51460 05/06/2012 COMPLETE CBC W/AUTO DIFF WBC CPT-4: 78988 05/06/2012 ASSAY OF BLOOD/URIC ACID CPT-4: 22658 05/06/2012 THER/PROPH/DIAG INJ SC/IM CPT-4: 74050 03/19/2012 KETOROLAC TROMETHAMINE INJ CPT-4: J1885 03/19/2012 KETOROLAC TROMETHAMINE INJ CPT-4: J1885 01/30/2012 THER/PROPH/DIAG INJ SC/IM CPT-4: 59234 01/30/2012 PROMETHAZINE HCL INJECTION CPT-4: J2550 01/30/2012 THER/PROPH/DIAG INJ SC/IM CPT-4: 01220 01/24/2012 METHYLPREDNISOLONE 40 MG INJ CPT-4: J1030 01/24/2012 TRIAMCINOLONE ACET INJ NOS CPT-4: J3301 01/24/2012 THER/PROPH/DIAG INJ SC/IM CPT-4: 10638 09/13/2011 KETOROLAC TROMETHAMINE INJ CPT-4: J1885 09/13/2011 THER/PROPH/DIAG INJ SC/IM CPT-4: 73172 09/13/2011 PROMETHAZINE HCL INJECTION CPT-4: J2550 09/13/2011 CEFTRIAXONE SODIUM INJECTION CPT-4: J0696 07/20/2011 THER/PROPH/DIAG INJ SC/IM CPT-4: 83496 07/20/2011 THER/PROPH/DIAG INJ SC/IM CPT-4: 22207 07/20/2011 METHYLPREDNISOLONE INJECTION CPT-4: J2930 07/20/2011 URINALYSIS NONAUTO W/O SCOPE CPT-4: 09994 05/09/2011 CEFTRIAXONE SODIUM INJECTION CPT-4: J0696 05/09/2011 THER/PROPH/DIAG INJ SC/IM CPT-4: 55319 05/09/2011 THER/PROPH/DIAG INJ SC/IM CPT-4: 28926 05/09/2011 PROMETHAZINE HCL INJECTION CPT-4: J2550 05/09/2011 HYDRATION IV INFUSION INIT CPT-4: 50521 05/09/2011 DESTRUCT PREMALG LESION (Cryosurgery) CPT-4: 19883 DESTRUCT PREMALG LES 2-14 CPT-4: 61011 07/19/2010 REMOVAL OF SKIN TAGS <W/15 CPT-4: 53975 05/30/2010 THER/PROPH/DIAG INJ SC/IM CPT-4: 06364 04/05/2010 CEFTRIAXONE SODIUM INJECTION CPT-4: J0696 04/05/2010 TRIAMCINOLONE ACET INJ NOS CPT-4: J3301 04/05/2010 METHYLPREDNISOLONE 40 MG INJ CPT-4: J1030 04/05/2010 THER/PROPH/DIAG INJ SC/IM CPT-4: 81636 04/05/2010 TRIAMCINOLONE ACET INJ NOS CPT-4: J3301 03/09/2010 METHYLPREDNISOLONE 40 MG INJ CPT-4: J1030 03/09/2010 THER/PROPH/DIAG INJ SC/IM CPT-4: 81468 03/09/2010 THER/PROPH/DIAG INJ SC/IM CPT-4: 95582 03/09/2010 CEFTRIAXONE SODIUM INJECTION CPT-4: J0696 03/09/2010 [...] 1: 132/80 Code: 8480-6 BMI: 35.8 Code: 81691-8 Heart Rate 1: 88 bpm Height: 5'4" Respiratory Rate: 20 bpm SpO2: 95% Tempera ture: 36.9 (C) / 98.5 (F) Weight: 210 lbs 05/28/2019 Blood Pressure 1: 126/82 Code: 8480-6 BMI: 35.0 Code: 44434-7 Heart Rate 1: 88 bpm Height: 5'4" [...] 1: 128/90 Code: 8480-6 BMI: 37.2 Code: 65637-0 Heart Rate 1: 84 bpm Height: 5'4" Respiratory Rate: 20 bpm SpO2: 95% Tempera ture: 36.6 (C) / 97.8 (F) Weight: 217 lbs 08/27/2018 Blood Pressure 1: 128/88 Code: 8480-6 BMI: 38.3 Code: 56028-7 Heart Rate 1: 84 bpm Height: 5'4" [...] 1: 119/72 Code: 8480-6 BMI: 37.4 Code: 99492-7 Heart Rate 1: 82 bpm Height: 5'4" Respiratory Rate: 12 bpm SpO2: 94% Tempera ture: 35.2 (C) / 95.4 (F) Weight: 218 lbs 12/18/2017 Blood Pressure 1: 128/86 Code: 8480-6 BMI: 37.8 Code: 53863-4 Heart Rate 1: 84 bpm Height: 5'4" [...] 1: 128/82 Code: 8480-6 BMI: 35.5 Code: 57109-0 Heart Rate 1: 84 bpm Height: 5'4" [...] 1: 128/82 Code: 8480-6 BMI: 30.2 Code: 54732-5 Heart Rate 1: 80 bpm Height: 5'4" [...] 1: 128/86 Code: 8480-6 BMI: 32.8 Code: 75202-0 Heart Rate 1: 66 bpm Height: 5'4" Respiratory Rate: 18 bpm Temperature: 36 .3 (C) / 97.3 (F) Weight: 191 lbs 06/23/2013 Blood Pressure 1: 132/94 Code: 8480-6 BMI: 34.0 Code: 38762-2 Heart Rate 1: 84 bpm Height: 5'4" Respiratory Rate: 20 bpm Temperature: 36 .8 (C) / 98.2 (F) Weight: 198 lbs 05/26/2013 Blood Pressure 1: 114/80 Code: 8480-6 BMI: 35.0 Code: 19502-5 Heart Rate 1: 80 bpm Height: 5'4" Respiratory Rate: 20 bpm Temperature: 36 .4 (C) / 97.6 (F) Weight: 204 lbs 04/16/2013 Blood Pressure 1: 114/82 Code: 8480-6 BMI: 36.7 Code: 33550-6 Heart Rate 1: 84 bpm Height: 5'4" Respiratory Rate: 20 bpm Temperature: 36 .7 (C) / 98.0 (F) Weight: 214 lbs 03/05/2013 Blood Pressure 1: 136/90 Code: 8480-6 BMI: 37.1 Code: 74370-8 Heart Rate 1: 84 bpm Height: 5'4" [...] 1: 168/114 Code: 8480-6 BMI: 36.2 Code: 50854-2 Heart Rate 1: 104 bpm Height: 5'4" Respiratory Rate: 20 bpm Temperature: 36 .8 (C) / 98.2 (F) Weight: 211 lbs 11/22/2012 Blood Pressure 1: 128/90 Code: 8480-6 Heart Rate 1: 88 bpm Respiratory Rate: 20 bpm SpO2: 96% Temperature: 36.8 (C) / 98.2 (F) 11/21/2012 Blood Pressure 1: 146/100 Code: 8480-6 BMI: 35.7 Code: 07795-4 Heart Rate 1: 96 bpm Height: 5'4" [...] 1: 138/100 Code: 8480-6 BMI: 35.7 Code: 78077-6 Heart Rate 1: 96 bpm Height: 5'4" Respiratory Rate: 20 bpm Temperature: 36 .8 (C) / 98.2 (F) Weight: 208 lbs 05/06/2012 Blood Pressure 1: 154/102 Code: 8480-6 BMI: 34.7 Code: 20442-8 Heart Rate 1: 116 bpm Height: 5'4" Respiratory Rate: 20 bpm Temperature: 36 .8 (C) / 98.2 (F) Weight: 202 lbs 04/03/2012 Blood Pressure 1: 134/94 Code: 8480-6 BMI: 34.8 Code: 20406-3 Heart Rate 1: 108 bpm Height: 5'4" Respiratory Rate: 20 bpm Temperature: 36 .8 (C) / 98.2 (F) Weight: 203 lbs 03/19/2012 Blood Pressure 1: 148/106 Code: 8480-6 BMI: 35.0 Code: 08943-7 Heart Rate 1: 100 bpm Height: 5'4" Respiratory Rate: 20 bpm Temperature: 36 .6 (C) / 97.9 (F) Weight: 204 lbs 02/22/2012 Blood Pressure 1: 146/94 Code: 8480-6 He art Rate 1: 88 bpm 02/21/2012 Blood Pressure 1: 172/120 Code: 8480-6 B lood Pressure 2: 152/106 Code: 8480-6 Heart Rate 1: 116 bpm 02/20/2012 Blood Pressure 1: 160/100 Code: 8480-6 BMI: 32.0 Code: 98470-2 Heart Rate 1: 84 bpm Height: 5'7" Temperature: 36.5 (C) / 97.7 (F) Weight: 204 lbs 01/30/2012 Blood Pressure 1: 152/110 Code: 8480-6 BMI: 32.0 Code: 82441-9 Heart Rate 1: 116 bpm Height: 5'7" Respiratory Rate: 20 bpm Temperature: 37 .0 (C) / 98.6 (F) Weight: 204 lbs 01/24/2012 Blood Pressure 1: 146/100 Code: 8480-6 BMI: 32.0 Code: 91491-4 Heart Rate 1: 100 bpm Height: 5'7" Respiratory Rate: 20 bpm Temperature: 36 .7 (C) / 98.0 (F) Weight: 204 lbs 01/10/2012 Blood Pressure 1: 156/94 Code: 8480-6 BMI: 32.6 Code: 39483-9 Heart Rate 1: 72 bpm Height: 5'7" Respiratory Rate: 20 bpm Temperature: 36 .8 (C) / 98.2 (F) Weight: 208 lbs 12/11/2011 Blood Pressure 1: 146/100 Code: 8480-6 Heart Rat e 1: 116 bpm Height: 5'7" Respiratory Rate: 20 bpm Temperature: 36.9 (C) / 98.4 (F) We ight: 11/09/2011 Blood Pressure 1: 148/96 Code: 8480-6 BMI: 32.1 Code: 69408-4 Heart Rate 1: 116 bpm Height: 5'7" Respiratory Rate: 20 bpm Temperature: 36 .7 (C) / 98.0 (F) Weight: 205 lbs 09/13/2011 Blood Pressure 1: 126/88 Code: 8480-6 Heart Rate 1: 88 bpm Height: 5'7" Respiratory Rate: 20 bpm Temperature: 36.9 (C) / 98.4 (F) We ight: 08/31/2011 Blood Pressure 1: 118/82 Code: 8480-6 BMI: 32.0 Code: 36363-9 Heart Rate 1: 80 bpm Height: 5'7" Temperature: 36.4 (C) / 97.6 (F) Weight: 204 lbs 07/06/2011 Blood Pressure 1: 128/86 Code: 8480-6 BMI: 30.9 Code: 41806-7 Heart Rate 1: 92 bpm Height: 5'7" Respiratory Rate: 20 bpm Temperature: 36 .9 (C) / 98.4 (F) Weight: 197 lbs 06/06/2011 Blood Pressure 1: 112/74 Code: 8480-6 BMI: 31.0 Code: 81769-9 Heart Rate 1: 72 bpm Height: 5'7" [...] 1: 128/92 Code: 8480-6 BMI: 33.6 Code: 82755-3 Heart Rate 1: 104 bpm Height: 5'4" [...] Check-up Encounters Encounter Performer Location Codes Date ([id number]) OFFICE/OUTPATIENT VISIT EST Diagnosis: Essential (primary) hypertension[ICD10: I10] Diagnosis: Type 2 diabetes mellitus with hyperglycemia[ICD10: E11.65] Diagnosis: Allergic rhinitis[ICD10: J30.9] María Elena APPIAH DO [facility] CPT-4: 86255 01/13/2020 ([id number]) OFFICE/OUTPATIENT VISIT EST Diagnosis: Type 2 diabetes mellitus with hyperglycemia[ICD10: E11.65] María Elena JUARES [facility] [employer] [employer] [facility] CPT-4: 34258 11/20/2019 ([id number]) OFFICE/OUTPATIENT VISIT EST Diagnosis: Ingrowing nail[ICD10: L60.0] Diagnosis: Type 2 diabetes mellitus with hyperglycemia[ICD10: E11.65] Kathleen Zuniga MARÍA ELENA [facility] CPT-4: 61026 10/07/2019 ([id number]) OFFICE/OUTPATIENT VISIT EST Diagnosis: DM w/o complication type II, uncontrolled[ICD10: E11.65] Diagnosis: Hypertriglyceridemia[ICD10: E78.1] Diagnosis: Essential hypertension[ICD10: I10] María Elena JEAN Fabiola [facility] CPT-4: 76176 09/30/2019 ([id number]) NURSE/OUTPATIENT VISIT EST Diagnosis: Essential (primary) hypertension[ICD10: I10] Diagnosis: Cervicalgia[ICD10: M54.2] Diagnosis: Hyperglycemia, unspecified[ICD10: R73.9] Diagnosis: Mixed hyperlipidemia[ICD10: E78.2] María Elena JEAN Fabiola [facility] CPT-4: 25047 09/29/2019 ([id number]) OFFICE/OUTPATIENT VISIT EST Diagnosis: Essential (primary) hypertension[ICD10: I10] Diagnosis: Fall from bed, sequela[ICD10: W06.XXXS] María Elena REED [facility] CPT-4: 79002 05/28/2019 ([id number]) NURSE/OUTPATIENT VISIT EST Diagnosis: Essential (primary) hypertension[ICD10: I10] María Elena JUARES [facility] CPT-4: 06670 05/19/2019 ([id number]) OFFICE/OUTPATIENT VISIT EST Diagnosis: Essential (primary) hypertension[ICD10: I10] Diagnosis: Type 2 diabetes mellitus with hyperglycemia[ICD10: E11.65] Diagnosis: Intervertebral disc disorders with radiculopathy, 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] Diagnosis: Hormone replacement therapy[ICD10: Z79.890] María Elena APPIAH DO [facility] CPT-4: 58947 01/22/2019 ([id number]) OFFICE/OUTPATIENT VISIT EST Diagnosis: Essential (primary) hypertension[ICD10: I10] Diagnosis: Type 2 diabetes mellitus with hyperglycemia[ICD10: E11.65] María Elena APPIAH DO [facility] CPT-4: 37795 09/30/2018 ([id number]) OFFICE/OUTPATIENT VISIT EST Diagnosis: Pain in left elbow[ICD10: M25.522] Diagnosis: Acute stress reaction[ICD10: F43.0] Diagnosis: Primary insomnia[ICD10: F51.01] Diagnosis: Abnormal weight gain[ICD10: R63.5] María Elena APPIAH [facility] CPT-4: 85273 08/27/2018 ([id number]) OFFICE/OUTPATIENT VISIT EST Diagnosis: Acute recurrent sinusitis, unspecified[ICD10: J01.91] Diagnosis: Follicular disorder, unspecified[ICD10: L73.9] Diagnosis: Tinea corporis[ICD10: B35.4] María Elena APPIAH DO [facility] CPT-4: 57038 08/09/2018 ([id number]) OFFICE/OUTPATIENT VISIT EST Diagnosis: Tinea corporis[ICD10: B35.4] Diagnosis: Anxiety disorder, unspecified[ICD10: F41.9] Diagnosis: Menopausal and female climacteric states[ICD10: N95.1] María Elena APPIAH [facility] CPT-4: 35261 07/22/2018 ([id number]) NURSE/OUTPATIENT VISIT EST Diagnosis: Cellulitis of right toe[ICD10: L03.031] María Elena APPIAH [facility] CPT-4: 76634 06/19/2018 ([id number]) OFFICE/OUTPATIENT VISIT EST Diagnosis: Cellulitis of right toe[ICD10: L03.031] Kathleen APPIAH DO [facility] CPT-4: 38568 06/17/2018 ([id number]) OFFICE/OUTPATIENT VISIT EST Diagnosis: Migraine without aura, intractable, without status migrainosus[ICD10: G43.019] Diagnosis: Zoster without complications[ICD10: B02.9] Kathleen APPIAH DO [facility] CPT-4: 88481 05/16/2018 ([id number]) OFFICE/OUTPATIENT VISIT EST Diagnosis: Cellulitis of right lower limb[ICD10: L03.115] Kathleen APPIAH DO [facility] CPT-4: 91401 03/20/2018 ([id number]) OFFICE/OUTPATIENT VISIT EST Diagnosis: Cellulitis of right lower limb[ICD10: L03.115] Kathleen APPIAH DO [facility] CPT-4: 68147 03/18/2018 ([id number]) OFFICE/OUTPATIENT VISIT EST Diagnosis: Cellulitis of right lower limb[ICD10: L03.115] Kathleen APPIAH DO [facility] CPT-4: 89739 03/15/2018 ([id number]) OFFICE/OUTPATIENT VISIT EST Diagnosis: Acute sinusitis, unspecified[ICD10: J01.90] Kathleen APPIAH DO [facility] CPT-4: 56596 02/11/2018 ([id number]) NURSE/OUTPATIENT VISIT EST Diagnosis: Otitis media, unspecified, right ear[ICD10: H66.91] María Elena APPIAH DO [facility] CPT-4: 70743 02/01/2018 ([id number]) OFFICE/OUTPATIENT VISIT EST Diagnosis: Acute suppurative otitis media without spontaneous rupture of ear drum, left ear[ICD10: H66.002] Diagnosis: Abnormal weight gain[ICD10: R63.5] Diagnosis: Intervertebral disc disorders with radiculopathy, 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] Kathleen APPIAH DO [facility] CPT-4: 99 214 01/30/2018 ([id number]) PREV VISIT EST AGE 40-64 Diagnosis: Encounter for general adult medical examination without abnormal findings[ICD10: Z00.00] Diagnosis: Essential (primary) hypertension[ICD10: I10] Diagnosis: Mixed hyperlipidemia[ICD10: E78.2] Diagnosis: Type 2 diabetes mellitus with hyperglycemia[ICD10: E11.65] Diagnosis: 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] María Elena APPIAH DO [facility] CPT-4: 14054 12/18/2017 ([id number]) OFFICE/OUTPATIENT VISIT EST Diagnosis: Cellulitis of right toe[ICD10: L03.031] Diagnosis: Mixed hyperlipidemia[ICD10: E78.2] Diagnosis: Essential (primary) hypertension[ICD10: I10] Diagnosis: Hyperglycemia, unspecified[ICD10: R73.9] Diagnosis: Nontoxic goiter, 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] María Elena APPIAH DO [facility] CPT-4: 23982 12/10/2017 ([id number]) OFFICE/OUTPATIENT VISIT EST Diagnosis: Cellulitis of right toe[ICD10: L03.031] Diagnosis: Acute sinusitis, unspecified[ICD10: J01.90] Kathleen APPIAH DO [facility] CPT-4: 83546 12/07/2017 OFFICE/OUTPATIENT VISIT EST Diagnosis: Acute maxillary sinusitis, unspecified[ICD10: J01.00] Kathleen APPIAH DO [facility] CPT-4: 27162 10/08/2017 ([id number]) OFFICE/OUTPATIENT VISIT EST Diagnosis: Cellulitis of left toe[ICD10: L03.032] María Elena ISAAC [employer] APPIAH [employer] [facility] CPT-4: 50225 09/21/2017 ([id number]) OFFICE/OUTPATIENT VISIT EST Diagnosis: Insomnia, unspecified[ICD10: G47.00] Diagnosis: Major depressive disorder, single episode, unspecified[ICD10: F32.9] Diagnosis: Anxiety disorder, unspecified[ICD10: F41.9] Diagnosis: Cellulitis of left toe[ICD10: L03.032] Diagnosis: Snoring[ICD10: R06.83] Kathleen APPIAH DO [facility] CPT-4: 15676 09/20/2017 ([id number]) OFFICE/OUTPATIENT VISIT EST Diagnosis: Cellulitis of left toe[ICD10: L03.032] María Elena APPIAH [facility] CPT-4: 96232 07/19/2017 OFFICE/OUTPATIENT VISIT EST Diagnosis: Chronic sinusitis, unspecified[ICD10: J32.9] Diagnosis: Generalized hyperhidrosis[ICD10: R61] Kathleen APPIAH DO [facility] CPT-4: 06445 06/27/2017 ([id number]) OFFICE/OUTPATIENT VISIT EST Diagnosis: Intervertebral disc disorders with radiculopathy, 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] Diagnosis: Primary insomnia[ICD10: F51.01] Diagnosis: Other fatigue[ICD10: R53.83] María Elena APPIAH DO [facility] CPT-4: 89645 04/10/2017 ([id number]) OFFICE/OUTPATIENT VISIT EST Diagnosis: Primary insomnia[ICD10: F51.01] Diagnosis: Localized edema[ICD10: R60.0] Diagnosis: 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] María Elena APPIAH [facility] CPT-4: 42356 12/13/2016 ([id number]) OFFICE/OUTPATIENT VISIT EST Diagnosis: Primary insomnia[ICD10: F51.01] Diagnosis: Cyanosis[ICD10: R23.0] María Elena [facility] [employer] [facility] CPT-4: 46512 11/01/2016 ([id number]) PREV VISIT EST AGE 40-64 Diagnosis: Encounter for gynecological examination (general) (routine) without abnormal findings[ICD10: Z01.419] Diagnosis: Encounter for routine child health examination without abnormal findings[ICD10: Z00.129] María Elena APPIAH [facility] CPT-4: 71697 10/17/2016 ([id number]) OFFICE/OUTPATIENT VISIT EST Diagnosis: Other seasonal allergic rhinitis[ICD10: J30.2] María Elena APPIAH DO [facility] CPT-4: 87126 10/10/2016 ([id number]) OFFICE/OUTPATIENT VISIT EST Diagnosis: Pain in left arm[ICD10: M79.602] Diagnosis: Contact with and (suspected) exposure to potentially hazardous body fluids[ICD10: Z77.21] Diagnosis: 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, 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] Diagnosis: Unspecified open wound, right foot, sequela[ICD10: S91.301S] María Elena APPIAH DO [facility] CPT-4: 86955 09/19/2016 ([id number]) OFFICE/OUTPATIENT VISIT EST Diagnosis: Chronic sinusitis, unspecified[ICD10: J32.9] Diagnosis: Allergic rhinitis due to pollen[ICD10: J30.1] María Elena APPIAH DO [facility] CPT-4: 47763 08/24/2016 ([id number]) OFFICE/OUTPATIENT VISIT EST Diagnosis: Acute bronchitis, unspecified[ICD10: J20.9] María Elena APPIAH DO [facility] CPT-4: 84261 08/16/2016 ([id number]) OFFICE/OUTPATIENT VISIT EST Diagnosis: Otitis media, unspecified, right ear[ICD10: H66.91] Diagnosis: Acute bronchitis, unspecified[ICD10: J20.9] María Elena APPIAH [employer] [facility] CPT-4: 92563 08/10/2016 ([id number]) OFFICE/OUTPATIENT VISIT EST Diagnosis: Acute recurrent sinusitis, unspecified[ICD10: J01.91] Diagnosis: Allergic rhinitis due to pollen[ICD10: J30.1] María Elena APPIAH [employer] [facility] CPT-4: 08092 08/02/2016 ([id number]) OFFICE/OUTPATIENT VISIT EST Diagnosis: Pain in unspecified joint[ICD10: M25.50] María Elena APPIAH [employer] [facility] CPT-4: 40153 07/27/2016 OFFICE/OUTPATIENT VISIT EST Diagnosis: 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] Diagnosis: Acute recurrent sinusitis, unspecified[ICD10: J01.91] Diagnosis: Other fatigue[ICD10: R53.83] Diagnosis: Primary insomnia[ICD10: F51.01] Diagnosis: Pain in unspecified joint[ICD10: M25.50] María Elena APPIAH DO [facility] CPT-4: 67902 07/20/2016 ([id number]) OFFICE/OUTPATIENT VISIT EST Diagnosis: Blister (nonthermal), left great toe, initial encounter[ICD10: S90.422A] Loan APPIAH DO [facility] CPT-4: 31024 ([id number]) OFFICE/OUTPATIENT VISIT EST Diagnosis: Acute recurrent sinusitis, unspecified[ICD10: J01.91] María Elena APPIAH DO [facility] CPT-4: 07243 05/25/2016 ([id number]) OFFICE/OUTPATIENT VISIT EST Diagnosis: Acute sinusitis, unspecified[ICD10: J01.90] María Elena APPIAH DO [facility] CPT-4: 65095 04/26/2016 ([id number]) OFFICE/OUTPATIENT VISIT EST Diagnosis: Flushing[ICD10: R23.2] Diagnosis: Primary insomnia[ICD10: F51.01] María Elena APPIAH [facility] CPT-4: 90715 03/02/2016 ([id number]) OFFICE/OUTPATIENT VISIT EST Diagnosis: Other seasonal allergic rhinitis[ICD10: J30.2] Loan APPIAH [facility] CPT-4: 28845 02/09/2016 ([id number]) OFFICE/OUTPATIENT VISIT EST Diagnosis: Primary insomnia[ICD10: F51.01] Diagnosis: Urinary tract infection, site not specified[ICD10: N39.0] María Elena APPIAH [facility] CPT-4: 67623 01/24/2016 ([id number]) OFFICE/OUTPATIENT VISIT EST Diagnosis: Other specified disorders of Eustachian tube, bilateral[ICD10: H69.83] Diagnosis: Allergic rhinitis, unspecified[ICD10: J30.9] Loan APPIAH [facility] CPT-4: 02122 12/23/2015 ([id number]) OFFICE/OUTPATIENT VISIT EST Diagnosis: Acute recurrent sinusitis, unspecified[ICD10: J01.91] Diagnosis: 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] Diagnosis: Allergic rhinitis, unspecified[ICD10: J30.9] María Elena APPIAH DO [facility] CPT-4: 28036 12/08/2015 ([id number]) OFFICE/OUTPATIENT VISIT EST Diagnosis: Allergic rhinitis, unspecified[ICD10: J30.9] Diagnosis: Pain in unspecified joint[ICD10: M25.50] María Elena APPIAH DO [facility] CPT-4: 31050 10/07/2015 ([id number]) OFFICE/OUTPATIENT VISIT EST Diagnosis: Essential (primary) hypertension[ICD10: I10] María Elena APPIAH DO [facility] CPT-4: 18325 10/06/2015 OFFICE/OUTPATIENT VISIT EST Diagnosis: Localized enlarged lymph nodes[ICD10: R59.0] Diagnosis: Local infection of the skin and subcutaneous tissue, unspecified[ICD10: L08.9] June Sandra MARÍA ELENA APPIAH DO [facility] CPT- 4: 97508 09/14/2015 ([id number]) OFFICE/OUTPATIENT VISIT EST Diagnosis: Essential (primary) hypertension[ICD10: I10] Diagnosis: Actinic keratosis[ICD10: L57.0] María Elena APPIAH DO [facility] CPT-4: 69296 09/07/2015 ([id number]) OFFICE/OUTPATIENT VISIT EST Diagnosis: Essential (primary) hypertension[ICD10: I10] Diagnosis: Acute stress reaction[ICD10: F43.0] María Elena APPIAH DO [facility] CPT-4: 33662 08/18/2015 ([id number]) OFFICE/OUTPATIENT VISIT EST Diagnosis: Essential (primary) hypertension[ICD10: I10] María Elena APPIAH DO [facility] CPT-4: 99529 07/07/2015 ([id number]) OFFICE/OUTPATIENT VISIT EST Diagnosis: Essential (primary) hypertension[ICD10: I10] María Elena APPIAH DO [facility] CPT-4: 24940 06/24/2015 ([id number]) OFFICE/OUTPATIENT VISIT EST Diagnosis: Essential (primary) hypertension[ICD10: I10] María Elena APPIAH [facility] CPT-4: 53331 06/21/2015 ([id number]) OFFICE/OUTPATIENT VISIT EST Diagnosis: Essential (primary) hypertension[ICD10: I10] Diagnosis: Mixed hyperlipidemia[ICD10: E78.2] Diagnosis: Acute stress reaction[ICD10: F43.0] Diagnosis: Primary insomnia[ICD10: F51.01] María Elena APPIAH [facility] CPT-4: 12906 06/16/2015 ([id number]) OFFICE/OUTPATIENT VISIT EST Diagnosis: INSOMNIA NOS[ICD9: 780.52] Diagnosis: HYPERTENSION[ICD9: 401.9] Diagnosis: Stress reaction[ICD9: 308.9] María Elena APPIAH [facility] CPT-4: 61757 06/02/2015 ([id number]) OFFICE/OUTPATIENT VISIT EST Diagnosis: HYPERTENSION[ICD9: 401.9] Diagnosis: Stress reaction[ICD9: 308.9] María Elena APPIAH [facility] CPT-4: 40686 05/20/2015 ([id number]) OFFICE/OUTPATIENT VISIT EST Diagnosis: Skin lesion[ICD9: 709.9] 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] María Elena APPIAH [facility] CPT-4: 45521 05/10/2015 ([id number]) OFFICE/OUTPATIENT VISIT EST Diagnosis: SINUSITIS, ACUTE[ICD9: 461.9] Diagnosis: ALLERGIC RHINITIS[ICD9: 477.9] Diagnosis: DERMATITIS NOS[ICD9: 692.9] María Elena Rodríguez ORI [facility] CPT-4: 71766 03/16/2015 OFFICE/OUTPATIENT VISIT EST Diagnosis: Otitis media[ICD9: 382.9] Diagnosis: SINUSITIS, ACUTE[ICD9: 461.9] June Flores MARÍA ELENA APPIAH [facility] CPT-4: 07156 09/11/2014 ([id number]) OFFICE/OUTPATIENT VISIT EST Diagnosis: HYPERLIPIDEMIA NEC/NOS[ICD9: 272.4] María Elena MONTEROGOMEZ COLON Fabiola APPIAH [facility] CPT-4: 91270 08/31/2014 ([id number]) OFFICE/OUTPATIENT VISIT EST Diagnosis: - I - HYPERTENSION[ICD9: 401.9] Diagnosis: HYPERLIPIDEMIA NEC/NOS[ICD9: 272.4] María Elena APPIAH DO [facility] CPT-4: 72179 08/27/2014 ([id number]) OFFICE/OUTPATIENT VISIT EST Diagnosis: ABDOMINAL PAIN[ICD9: 789.00] Diagnosis: DYSPEPSIA[ICD9: 536.8] Diagnosis: Thoracic back pain[ICD9: 724.1] María Elena APPIAH DO [facility] CPT-4: 16302 07/21/2014 ([id number]) OFFICE/OUTPATIENT VISIT EST Diagnosis: ALLERGIC RHINITIS[ICD9: 477.9] María Elena APPIAH DO [facility] CPT-4: 39395 07/15/2014 ([id number]) OFFICE/OUTPATIENT VISIT EST Diagnosis: EDEMA[ICD9: 782.3] Diagnosis: Chronic insomnia[ICD9: 780.52] María Elena APPIAH [facility] CPT-4: 15558 05/18/2014 ([id number]) OFFICE/OUTPATIENT VISIT EST Diagnosis: Thyromegaly[ICD9: 240.9] Diagnosis: - I - HYPERTENSION[ICD9: 401.9] Diagnosis: ROUTINE MEDICAL EXAM[ICD9: V70.0] Diagnosis: EDEMA[ICD9: 782.3] María Elena APPIAH [facility] CPT-4: 61611 05/14/2014 OFFICE/OUTPATIENT VISIT EST Diagnosis: BRONCHITIS, ACUTE[ICD9: 466.0] Diagnosis: SINUSITIS, ACUTE[ICD9: 461.9] María Elena APPIAH DO [facility] CPT-4: 80366 04/21/2014 OFFICE/OUTPATIENT VISIT EST Diagnosis: SINUSITIS, ACUTE[ICD9: 461.9] June Sandra MARÍA ELENA APPIAH DO [facility] CPT-4: 25369 03/04/2014 ([id number]) OFFICE/OUTPATIENT VISIT EST Diagnosis: VACCINE FOR TDAP[ICD10: Z23] María Elena APPIAH [facility] CPT-4: 27594 02/27/2014 ([id number]) OFFICE/OUTPATIENT VISIT EST Diagnosis: Seborrheic keratoses, inflamed[ICD9: 702.11] Diagnosis: ACTINIC KERATOSIS[ICD9: 702.0] Diagnosis: INSOMNIA NOS[ICD9: 780.52] María Elena Valdes [facility] CPT-4: 50983 01/13/2014 OFFICE/OUTPATIENT VISIT EST 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] Diagnosis: ALLERGIC RHINITIS[ICD9: 477.9] Diagnosis: Serous otitis media[ICD9: 381.4] María Elena APPIAH [facility] CPT-4: 30652 12/24/2013 ([id number]) OFFICE/OUTPATIENT VISIT EST Diagnosis: SINUSITIS, ACUTE[ICD9: 461.9] Diagnosis: ALLERGIC RHINITIS[ICD9: 477.9] 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] María Elena [facility]: 35307 11/12/2013 ([id number]) OFFICE/OUTPATIENT VISIT EST Diagnosis: ALLERGIC RHINITIS[ICD9: 477.9] Diagnosis: SINUSITIS, ACUTE[ICD9: 461.9] María Elena [facility] CPT-[facility]: 05706 10/21/2013 ([id number]) OFFICE/OUTPATIENT VISIT EST Diagnosis: ASYMPTOMATIC VARICOSE VEINS[ICD9: 454.9] Diagnosis: INSOMNIA NOS[ICD9: 780.52] María [facility] CPT-[facility]: 14846 09/22/2013 OFFICE/OUTPATIENT VISIT EST Diagnosis: SINUSITIS, ACUTE[ICD9: 461.9] June Flores [facility] ELENA [facility] CPT-4: 51213 08/27/2013 ([id number]) OFFICE/OUTPATIENT VISIT EST Diagnosis: CEPHALGIA[ICD9: 784.0] Diagnosis: CEPHALGIA, TENSION[ICD9: 307.81] 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] María Elena APPIAH DO [facility] CPT-4: 35489 08/04/2013 ([id number]) OFFICE/OUTPATIENT VISIT EST Diagnosis: Cervicalgia[ICD9: 723.1] Diagnosis: SPASM OF MUSCLE[ICD9: 728.85] Diagnosis: CEPHALGIA, TENSION[ICD9: 307.81] María Elena APPIAH DO [facility] CPT-4: 39309 07/23/2013 ([id number]) OFFICE/OUTPATIENT VISIT EST 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] Diagnosis: ALLERGIC RHINITIS[ICD9: 477.9] María Elena APPIAH DO [facility] CPT-4: 96220 06/23/2013 ([id number]) OFFICE/OUTPATIENT VISIT EST Diagnosis: ALLERGIC RHINITIS[ICD9: 477.9] Diagnosis: ACUTE SEROUS OTITIS MEDIA[ICD9: 381.01] 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] María Elena APPIAH DO [facility] CPT-4: 86102 05/26/2013 ([id number]) OFFICE/OUTPATIENT VISIT EST Diagnosis: HYPERTENSION[ICD9: 401.9] Diagnosis: EDEMA[ICD9: 782.3] Diagnosis: Serous otitis media[ICD9: 381.4] María Elena APPIAH DO [facility] CPT-4: 97633 04/16/2013 ([id number]) OFFICE/OUTPATIENT VISIT EST Diagnosis: SINUSITIS, ACUTE[ICD9: 461.9] Diagnosis: ALLERGIC RHINITIS[ICD9: 477.9] Diagnosis: EDEMA[ICD9: 782.3] Diagnosis: Thyromegaly[ICD9: 240.9] Diagnosis: MALAISE AND FATIGUE[ICD9: 780.79] María Elena APPIAH [facility] CPT-4: 05406 03/05/2013 ([id number]) OFFICE/OUTPATIENT VISIT EST Diagnosis: PAIN, LOWER BACK[ICD9: 724.2] Diagnosis: SPASM OF MUSCLE[ICD9: 728.85] María Elena APPIAH DO [facility] CPT-4: 35427 12/23/2012 OFFICE/OUTPATIENT VISIT EST Diagnosis: Low back pain[ICD9: 724.2] Lashawn Hicks KRISTYN KENTER [facility] CPT-4: 44232 12/16/2012 ([id number]) OFFICE/OUTPATIENT VISIT EST Diagnosis: PAIN, LOWER BACK[ICD9: 724.2] Diagnosis: SCIATICA[ICD9: 724.3] Diagnosis: Lumbar herniated disc[ICD9: 722.10] María Elena COLON LucioJj TD GARIBAY [facility] CPT-4: 68952 12/09/2012 ([id number]) OFFICE/OUTPATIENT VISIT EST Diagnosis: PAIN, LOWER BACK[ICD9: 724.2] Diagnosis: SCIATICA[ICD9: 724.3] Diagnosis: LUMBAR DISC DISPLACEMENT[ICD9: 722.10] María Elena MARIN LucioJj TD G[facility] CPT-4: 84685 12/04/2012 OFFICE/OUTPATIENT VISIT EST Diagnosis: Pneumonia[ICD9: 486] Mary Hicks TD GARIB[facility] CPT-4: 22513 11/22/2012 ([id number]) OFFICE/OUTPATIENT VISIT EST Diagnosis: PNEUMONIA, ORGANISM[ICD9: 486] Diagnosis: Exacerbation of RAD (reactive airway disease)[ICD9: 493.92] María Elena JUARES LucioJj TD G[facility] CPT-4: 63907 11/21/2012 OFFICE/OUTPATIENT VISIT EST Diagnosis: HYPERTENSION[ICD9: 401.9] Diagnosis: Cephalgia[ICD9: 784.0] Lashawn Hicks SEAMUSMINDIVICTORINO [facility] CPT-4: 17591 10/29/2012 ([id number]) OFFICE/OUTPATIENT VISIT EST Diagnosis: MALAISE AND FATIGUE[ICD9: 780.79] Diagnosis: ARTHRALGIA-MULTIPLE SITES[ICD9: 719.49] María Elena Hicks TD GARIBAY [facility] CPT-4: 61899 10/14/2012 ([id number]) OFFICE/OUTPATIENT VISIT EST Diagnosis: URINARY FREQUENCY[ICD9: 788.41] María Elena Hicks TD GARIB[facility] CPT-4: 90094 09/27/2012 ([id number]) OFFICE/OUTPATIENT VISIT EST Diagnosis: MALAISE AND FATIGUE[ICD9: 780.79] Diagnosis: ARTHRALGIA-MULTIPLE SITES[ICD9: 719.49] María Elena ValdesJj [facility] CPT-4: 72381 09/25/2012 ([id number]) OFFICE/OUTPATIENT VISIT EST Diagnosis: SINUSITIS, ACUTE[ICD9: 461.9] 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] María Elena ValdesJj TD [facility] CPT-4: 95903 08/29/2012 OFFICE/OUTPATIENT VISIT EST Diagnosis: ACTINIC KERATOSIS[ICD9: 702.0] Diagnosis: Inflamed seborrheic keratosis[ICD9: 702.11] Diagnosis: Skin cancer of face[ICD9: 173.31] Diagnosis: HYPERTENSION[ICD9: 401.9] María Elena Waymindivictorino ValdesJj [facility] CPT-4: 41560 08/12/2012 ([id number]) OFFICE/OUTPATIENT VISIT EST Diagnosis: ARTHRALGIA-MULTIPLE SITES[ICD9: 719.49] Diagnosis: GOUT[ICD9: 274.9] Diagnosis: HYPERTENSION[ICD9: 401.9] Diagnosis: Tachycardia[ICD9: 785.0] María Elena ELLISLINE LucioJj [facility] CPT-4: 57856 05/06/2012 ([id number]) OFFICE/OUTPATIENT VISIT EST Diagnosis: INSOMNIA NOS[ICD9: 780.52] María Elena Seamusabbey JUARES LucioJj [facility] CPT-4: 82104 04/03/2012 ([id number]) OFFICE/OUTPATIENT VISIT EST Diagnosis: INSOMNIA NOS[ICD9: 780.52] Diagnosis: HYPERTENSION[ICD9: 401.9] Diagnosis: MIGRAINE NOS/NOT INTRCBL[ICD9: 346.90] María Elena Seamusabbey MARIN LucioJj [facility] CPT-[facility]: 74977 03/19/2012 ([id number]) OFFICE/OUTPATIENT VISIT EST Diagnosis: CELLULITIS[ICD9: 682.9] Diagnosis: Ankle pain[ICD9: 719.47] Diagnosis: HYPERTENSION[ICD9: 401.9] María Elena JUARES LucioJj [facility] CPT-4: 84855 02/20/2012 ([id number]) OFFICE/OUTPATIENT VISIT EST Diagnosis: MIGRAINE NOS/NOT INTRCBL[ICD9: 346.90] Diagnosis: Vomiting[ICD9: 787.03] María Elena JUARES LucioJj CIRO Bazzi [facility] CPT-4: 00982 01/30/2012 ([id number]) OFFICE/OUTPATIENT VISIT EST Diagnosis: EDEMA[ICD9: 782.3] Diagnosis: HYPERTENSION[ICD9: 401.9] Diagnosis: ALLERGIC RHINITIS[ICD9: 477.9] Diagnosis: ARTHRALGIA-MULTIPLE SITES[ICD9: 719.49] María Elena Hicks SE[facility]IVICTOR[facility] CPT-4: 91940 01/24/2012 ([id number]) OFFICE/OUTPATIENT VISIT EST Diagnosis: SPASM OF MUSCLE[ICD9: 728.85] Diagnosis: Thoracic back pain[ICD9: 724.1] Diagnosis: Cervical pain[ICD9: 723.1] María Elena Hicks KRISTYN MUMTAZ [facility] CPT-4: 03253 01/10/2012 OFFICE/OUTPATIENT VISIT EST Diagnosis: PAIN, LOWER BACK[ICD9: 724.2] Diagnosis: LUMBAR DISC DISPLACEMENT[ICD9: 722.10] María Elena MARIN LucioJj TD [facility] CPT-4: 22887 12/11/2011 OFFICE/OUTPATIENT VISIT EST Diagnosis: MIGRAINE NOS/NOT INTRCBL[ICD9: 346.90] Diagnosis: SINUSITIS, ACUTE[ICD9: 461.9] María Elena Hicks SE[facility]ICT[facility] CPT-4: 71324 11/09/2011 OFFICE/OUTPATIENT VISIT EST Diagnosis: MIGRAINE NOS/NOT INTRCBL[ICD9: 346.90] Diagnosis: LYMPHADENOPATHY[ICD9: 785.6] María Elena Hicks TD [facility] CPT-4: 85318 09/13/2011 OFFICE/OUTPATIENT VISIT EST Diagnosis: MALAISE AND FATIGUE[ICD9: 780.79] Diagnosis: ARTHRALGIA-MULTIPLE SITES[ICD9: 719.49] María Elena Hicks TD [facility] CPT-4: 11848 08/31/2011 OFFICE/OUTPATIENT VISIT EST Diagnosis: SINUSITIS, ACUTE[ICD9: 461.9] María Elena APPIAH DO [facility] CPT-4: 76230 07/20/2011 OFFICE/OUTPATIENT VISIT EST Diagnosis: HYPERTENSION[ICD9: 401.9] Diagnosis: PAIN, LOWER BACK[ICD9: 724.2] Diagnosis: SPASM OF MUSCLE[ICD9: 728.85] María Elena APPIAH DO [facility] CPT-4: 70557 07/06/2011 OFFICE/OUTPATIENT VISIT EST Diagnosis: MIGRAINE NOS/NOT INTRCBL[ICD9: 346.90] Diagnosis: HYPERTENSION[ICD9: 401.9] María Elena MOJICAR DO [facility] CPT-4: 79229 05/22/2011 OFFICE/OUTPATIENT VISIT EST Diagnosis: SINUSITIS, ACUTE[ICD9: 461.9] Diagnosis: MIGRAINE NOS/NOT INTRCBL[ICD9: 346.90] Diagnosis: Dehydration[ICD9: 276.51] Diagnosis: Vomiting[ICD9: 787.03] María Elena Bazzi DO [facility] CPT-4: 99096 05/09/2011 ([id number]) OFFICE/OUTPATIENT VISIT EST María Elena ISAAC UJARED S. SEAMUSNDER DO [facility] CPT-4: 13413 02/14/2011 ([id number]) OFFICE/OUTPATIENT VISIT EST María Elena ISAAC UJARED S. ORENDER DO [facility] CPT-4: 55837 02/03/2011 ([id number]) OFFICE/OUTPATIENT VISIT EST María Elena ISAAC UELINE S. ORENDER DO [facility] CPT-4: 95832 01/31/2011 ([id number]) OFFICE/OUTPATIENT VISIT EST María Elena Td ISAAC UJARED S. SEAMUSNDER DO [facility] CPT-4: 53391 01/25/2011 ([id number]) OFFICE/OUTPATIENT VISIT EST María Elenamarcella MARIN S. ORENDER DO [facility] CPT-4: 23218 01/18/2011 ([id number]) OFFICE/OUTPATIENT VISIT EST María Elena ISAAC [facility]ED [facility] CPT-4: 36090 11/29/2010 ([id number]) OFFICE/OUTPATIENT VISIT, EST María Elena REED [facility] CPT-4: 25355 10/10/2010 ([id number]) OFFICE/OUTPATIENT VISIT, EST María Elena [facility] CPT-4: 12622 06/07/2010 ([id number]) OFFICE/OUTPATIENT VISIT, EST María Elena [facility] CPT-4: 50799 04/27/2010 ([id number]) OFFICE/OUTPATIENT VISIT, EST María Elena [facility] CPT-4: 63399 04/05/2010 ([id number]) OFFICE/OUTPATIENT VISIT, EST María Elena [facility] CPT-4: 12587 03/09/2010 ([id number]) OFFICE/OUTPATIENT VISIT, EST María Elena [facility] CPT-4: 34749 03/03/2010 ([id number]) OFFICE/OUTPATIENT VISIT, EST María Elena [facility] CPT-4: 59116 01/17/2010 ([id number]) PREV VISIT, EST, AGE 40-64 María Elena CO[facility]MAN [facility] CPT-4: 92113 12/27/2009 Plan of Care Planned Activity Notes [...] E11.65 01/13/2020 Appointment: María Elena [facility]htel[facility] [phone] [facility] [facility] 01/13/2020 Patient Education: lisinopril- [employer] C[employer]on [id number] Completed 01/13/2020 Patient Education: glimepiride- [employer]on [id number] Completed 01/13/2020 Appointment: María Elena Appiah [facility]el[facility] [phone] [facility] [place] CANCELED 11/26/2019 Visit Diagnosis Plan: Type 2 diabetes mellitus with hy perglycemia Discussion: Januvia 100mg daily Glimepride 2mg po BID Accuchecks BID Call in 2 weeks with BS readings Get formulary book ICD-9 : 250.02 ICD-10 : E11.65 11/20/2019 Appointment: María Elena Appiah WPtel[facility] [phone] [facility] FO[facility] 11/20/2019 Patient Education: glimepiride- [employer] C[employer]on [id number] Completed 11/20/2019 Patient Education: Januvia- [employer] C[employer]on [id number] Completed 11/20/2019 Visit Diagnosis Plan: Ingrowing nail [...] 250.02 ICD-10 : E11.65 10/07/2019 Appointment: Kathleen Zuniag [address] [facility] US OFFICE SURGERY 10/07/2019 Visit [...] E11.65 09/30/2019 Appointment: María Elena Appiah WPtel: [address] [place], [place] [phone] [place] CHECK UP 09/30/2019 Patient Education: Premarin- [employer] Coupon [id number] https://[email or web address].com/samplemd/resources/getResource/61/41999q57-[email or web address]-j9 Completed 09/30/2019 Appointment: María Elena Appiah WPtel: [address] [place], [place] [phone] [place] LAB 09/29/2019 Appointment: María Elena Appiah WPtel: [address] [place], [place] [phone] [place] Won't have the new insurance till [...] W06.XXXS 05/28/2019 Appointment: María Elena Appiah WPtel: [address] [place], [place] [phone] [place] FOLLOW UP 05/28/2019 Appointment: María Elena Appiah WPtel: [address] [place] [address] US BP CHECK 05/19/2019 Visit Diagnosis Plan: [...] Z79.890 01/22/2019 Appointment: María Elena Appiah WPtel: [address] [place], [place] [phone] [place] FOLLOW UP 01/22/2019 Patient Education: estradiol- [employer] Coupon [id number] [email or web address]://[email or web address] Spex/samplemd/resources/getResource/61/579n414o-[email or web address] Completed 01/22/2019 Appointment: María Elena Appiahtel: [address] [place], [place] [phone] [place] CANCELED 01/20/2019 Appointment: María Elena Appiah WPtel: [address] [place], [place] [phone] [place] LM NO SHOW 01/06/2019 Appointment: María Elena Appiah WPtel: [address] [place] [address] US CANCELED 10/17/2018 Appointment: María Elena Appiah WPtel: [address] [place] [address] US BP CHECK 10/09/2018 Visit Diagnosis Plan: [...] I10 09/30/2018 Appointment: María Elena Appiah WPtel: [address] [place] [address] US FOLLOW UP 09/30/2018 Visit Diagnosis Plan: [...] F51.01 08/27/2018 Appointment: María Elena Appiah WPtel: [address] [place] [address] ACUTE ILLNESS 08/27/2018 Appointment: María Elena Appiah WPtel: [address] [place] [address] [place] Patient stated she went out to [...] Tyle... 08/09/2018 Appointment: María Elena Appiah WPtel: [address] [place] [address] ACUTE ILLNESS 08/09/2018 Appointment: María Elena Appiahtel: [address] [place] [address] NO SHOW 08/08/2018 Visit Diagnosis Plan: Anxiety [...] : B35.4 07/22/2018 Appointment: María Elena Appiahtel: [address] [place] [address] ACUTE ILLNESS 07/22/2018 Appointment: María Elena Appiahtel: [address] [place] [address] [place] INJECTION 06/19/2018 Patient Education: Patient Medication [...] : L03.031 06/17/2018 Appointment: Kathleen Zuniga [address] ACUTE ILLNESS 06/17/2018 Patient Education: Patient [...] : B02.9 05/16/2018 Appointment: Kathleen Zuniga [address] [place] [id number] ACUTE ILLNESS 05/16/2018 Patient Education: Patient Medication [...] : L03.115 03/20/2018 Appointment: Kathleen Zuniga [address] [place], [place] [address] FOLLOW UP 03/20/2018 Patient Education: Patient Medication [...] : L03.115 03/18/2018 Appointment: Kathleen Zuniga [address] [place] [phone] FOLLOW UP 03/18/2018 Patient Education: Patient Medication [...] : L03.115 03/15/2018 Appointment: Kathleen Zuniga [address] [phone] ACUTE ILLNESS 03/15/2018 Patient Education: Patient Medication [...] : J01.90 02/11/2018 Appointment: Kathleen Zuniga [address] [phone] ACUTE ILLNESS 02/11/2018 Patient Education: Patient Medication Summary Completed 02/11/2018 Appointment: María Elena Appiah WPtel: [phone] [facility] INJECTION 02/01/2018 Patient Education: Patient Medication [...] ICD-10 : M51.16 01/30/2018 Appointment: Kathleen Zuniga [address] [place] [address] ACUTE ILLNESS 01/30/2018 Patient Education: Patient Medication [...] 12/18/2017 Appointment: María Elena Appiah WPtel: [phone] Annual Well Visit 12/18/2017 Patient Education: Patient Medication Summary Completed 12/18/2017 Care Plan: Referral Order SNOMED-CT : [id number] Pending 12/18/2017 Appointment: María Elena Appiah WPtel: [phone] [facility] [place] INJECTION 12/10/2017 Patient Education: Patient [...] ICD-10 : L03.031 12/07/2017 Appointment: Kathleen Zuniga [address] [place] [address] ACUTE ILLNESS 12/07/2017 Patient Education: Patient Medication [...] ICD-10 : J01.00 10/08/2017 Appointment: Kathleen Zuniga [address] [place], [place] [id number] ACUTE ILLNESS 10/08/2017 Patient Education: Patient Medication Summary Completed 10/08/2017 Appointment: María Elena Appiah WPtel: [phone] [facility] [place] INJECTION 09/21/2017 Patient Education: Patient [...] ICD-10 : R06.83 09/20/2017 Appointment: Kathleen Zuniga [address] [place], [place] [id number] ACUTE ILLNESS 09/20/2017 Patient Education: Patient [...] : L60.0 08/29/2017 Appointment: Kathleen Zuniga [address] OFFICE SURGERY 08/29/2017 Patient Education: Patient Medication Summary Completed 08/29/2017 Visit Diagnosis Plan: Actinic keratosis Discussion: Cr yotherapy as above ICD-9 : 702.0 ICD-10 : L57.0 08/01/2017 Appointment: María Elena Appiah WPtel: [address] [place] [address] OFFICE SURGERY 08/01/2017 Patient Education: Patient Medication Summary Completed 08/01/2017 Appointment: María Elena Appiah WPtel: [address] [place] [address] PATIENT THOUGHT APPOINTMENT WAS TOMORROW 07/26/17 CALLED 15 MINUTES BEFORE APPT TO SAY SHE DIDN'T HAVE ANYONE TO COVER HER BUSINESS AND WOULD NOT MAKE IT NO SHOW 07/25/2017 Visit Diagnosis Plan: Cellulitis of left toe Discussio n: Clindamycin and notify if worsening or persistis ICD-9 : 681.10 ICD-10 : L03.032 07/19/2017 Appointment: María Elena Appiah WPtel: [address] [place] [address] MEDICATION REVIEW 07/19/2017 Patient Education: Patient Medication Summary Completed 07/19/2017 Appointment: María Elena Appiah WPtel: [address] [place] [address] CANCELED 07/04/2017 Visit Diagnosis Plan: Generalized hyperhidrosis Discus ian: CBC, CMP, TSH, free T4 ordered to assess. will review labs. ICD-9 : 780.8 ICD-10 : R61 06/27/2017 Visit Diagnosis Plan: Chronic sinusitis, unspecified D iscussion: Referral sent to dr. albarado in [place] per patient request. patient has been treated multiple times for sinus infections with no recovery. patient was seen by dr sanchez in the past with no interventions. patient has deviated septum which may be affecting her sinuses. 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, including hip Discussion: Shave removal of above lesio n--sent to pathology ICD-9 : 216.7 ICD-10 : D23.72 01/24/2017 Appointment: María Elena Appiah WPtel: [address] [place], [place] [phone] 01/23 confirmed ~sl OFFICE SURGERY 01/24/2017 Patient Education: Patient Medication Summary Completed 01/24/2017 Appointment: Loan Sánchez [address] [place], [place] [id number] 01/09 rescheduled~sl RESCHEDULED 01/15/2017 Visit [...] L81.4 12/13/2016 Appointment: María Elena Appiah WPtel: [address] [place], [place] [id number] [place] 12/12 confirmed ~sl MEDICATION REVIEW 12/13/2016 Patient Education: Patient Medication Summary Completed 12/13/2016 Appointment: María Elena Appiah WPtel: [address] [place], [place] [phone] [place] rescheduled for 12/13/16 at 11am RESCHEDULED 0 12/06/2016 Appointment: María Elena Appiah WPtel: [address] [place], [place] [phone] [place] CANCELED 11/23/2016 Patient Education: Patient Medication [...] F51.01 11/01/2016 Appointment: María Elena Appiah WPtel: [address] [place], [place] [id number] [place] 10/31 lm `sl 11/01 lm` MEDICATION REVIEW 017 Patient Education: Patient Medication Summary Completed 11/01/2016 Referral: Canelo Overton WPtel: [address] [id number] [place] Referral Initiated 10/30/2016 Visit Diagnosis Plan: [...] Z01.419 10/17/2016 Appointment: María Elena Appiah WPtel: [address] [place], [place] [id number] 10/16 confirmed ~sl PAP 10/17/2016 Patient Education: Patient Medication Summary Completed 10/17/2016 Care Plan: MAMMOGRAM SCREENING LOINC : 2 6347-5 Pending 10/17/2016 Visit Diagnosis Plan: Other seasonal allergic rhinitis Discussion: Decadron/Garamycin Nasal [place] Mix Too soon for steroid Retry zyrtec 10mg daily ICD-9 : 477.9 ICD-10 : J30.2 10/10/2016 Appointment: María Elena Appiah WPtel: [address] [place], [place] [id number] FOLLOW UP 10/10/2016 Patient Education: Patient Medication Summary Completed 10/10/2016 Appointment: María Elena Appiahtel: [address] [place], [place] [phone] 10/02 reschedule `sl RESCHEDULED 10/02/2016 Visit Plan: See surgery for removal of n ew left arm lesion and right foot lesion Lyrica to use next month for left arm paresthesias Continue current meds Discussed sunscreen/sunblock combo 09/19/2016 Appointment: María Elena Appiahtel: [address] [place], [place] [id number] 09/18 confirmed ~sl FOLLOW UP 09/19/2016 Patient Education: Patient Medication Summary Completed 09/19/2016 Patient Education: Patient Medication Summary Completed 09/18/2016 Care Plan: MAMMOGRAM BOTH BREASTS LOINC : 01697-6 Pending 09/18/2016 Visit Plan: Discussed that needs [...] sinuses 08/24/2016 Appointment: María Elena Appiah WPtel: [address] [place] [address] ACUTE ILLNESS 08/24/2016 Patient Education: Patient Medication Summary Completed 08/24/2016 Patient Education: Patient Medication Summary Completed 08/23/2016 Care Plan: MAMMOGRAM SCREENING [facility] : 2 6347-5 Pending 08/23/2016 Visit Plan: Finish doxycycline Add Breo 100/25 1 p BID for 2 weeks If not improving within next 2 days will get CXR 08/16/2016 Appointment: María Elena Appiah WPtel: [address] [place] [address] ACUTE ILLNESS 08/16/2016 Patient Education: Patient Medication Summary Completed 08/16/2016 Visit Plan: Supportive care. Rest, Fluid s, Tylenol/Motrin prn fever or bodyaches. Notify if worsening symptoms. Doxycyline and Prednisone 08/10/2016 Appointment: María Elena Appiah WPtel: [address] [place] [address] 08/09 lm`sl....confirmed-sp FOLLOW UP 09/2015 Patient Education: Patient Medication Summary Completed 08/10/2016 Visit Plan: Saline nasal flushes prn. Ty lenol/Motrin prn headache. Notify if persists/symptoms worsening. Dexamethasone 8mg IM today May use coricedan and mucinex 08/02/2016 Appointment: María Elena Appiah WPtel: [address] [place] [address] ACUTE ILLNESS 08/02/2016 Patient Education: Patient Medication Summary Completed 08/02/2016 Visit Plan: Cryotherapy as above and lef t forearm lesion removal as above with 5-0 punch biopsy and sent to path Return in 10 days for suture removal 08/01/2016 Appointment: María Elena Appiah WPtel: [address] [place] [address] 07/31 confirmed`~ OFFICE SURGERY 08/01/2016 Patient Education: Patient Medication Summary Completed 08/01/2016 Visit Plan: Stop clindamycin Check CBC, CMP, ESR now/STAT 07/27/2016 Appointment: María Elena Appiah WPtel: [address] [place] [address] ACUTE ILLNESS 07/27/2016 Patient Education: Patient Medication Summary Completed 07/27/2016 Visit Plan: Update lab and check ABIs to start with Will likely need cardiology evaluation to rule out PVD Clindamycin for 10 days Daily yogurt or probiotic Will return for removal of left arm lesions 07/20/2016 Appointment: María Elena Appiah WPtel: [address] [place] [address] ACUTE ILLNESS 07/20/2016 Patient Education: Patient Medication Summary Completed 07/20/2016 Patient Education: Patient Medication Summary Completed 07/20/2016 Care Plan: MAMMOGRAM BOTH BREASTS LOINC : 60028-0 Pending 07/20/2016 Care Plan: US EXAM CHEST LOINC : 48095-0 Pending 07/20/2016 Visit Plan: Wound culture collected from left great toe Appearance is somewhat staph like Rx as above Wound cleanser and skin care reviewed May need to add oral antibiotic if sores do not heal or continue to reoccur 07/06/2016 Appointment: Loan Sánchez [address] [place], [place] [phone] ACUTE ILLNESS 07/06/2016 Patient Education: Patient Medication Summary Completed 07/06/2016 Appointment: María Elena Appiah WPtel: [address] [place] [address] [place] INJECTION 05/25/2016 Patient Education: Patient Medication Summary Completed 05/25/2016 Visit Plan: Saline nasal flushes prn. Ty lenol/Motrin prn headache. Notify if persists/symptoms worsening. Dexamethasone and Rocephin given 04/26/2016 Appointment: María Elena Appiah WPtel: [address] [place] [address] ACUTE ILLNESS 04/26/2016 Patient Education: Patient Medication Summary Completed 04/26/2016 Visit Plan: Check CBC, CMP, TSH, FreeT4, HbA1C, estradiol, lipids in AM 03/02/2016 Appointment: María Elena Appiah WPtel: [address] [place] [address] 03/01 lm~sl ACUTE ILLNESS 03/02/2016 Patient Education: Patient Medication Summary Completed 03/02/2016 Visit Plan: Exam is nearly normal Needs to be taking daily antihistamine Would prefer to use oral steroids instead of shot but patient insist that oral steroids cause horrible headaches for her Will given kenalog IM instead 02/09/2016 Appointment: Loan Sánchez [address] [place] [address] ACUTE ILLNESS 02/09/2016 Patient Education: Patient Medication Summary Completed 02/09/2016 Visit Plan: Culture urine Macrobid DC xa nax Trial of Ativan 1mg q HS 01/24/2016 Appointment: Marí aElena Appiah WPtel: [address] [place] [address] ACUTE ILLNESS 01/24/2016 Patient Education: Patient Medication Summary Completed 01/24/2016 Visit Plan: No steroid or rocephin injec tion warranted Can have oral prednisone Continue current home regimen Needs to follow up with Dr Sanchez if problems persist 12/23/2015 Appointment: Loan Sánchez [address] [place] [address] ACUTE ILLNESS 12/23/2015 Patient Education: Patient Medication Summary Completed 12/23/2015 Visit Plan: Saline nasal flushes prn. Ty lenol/Motrin prn headache. Notify if persists/symptoms worsening. Kenalog 40mg IM today 12/08/2015 Appointment: María Elena Appiah WPtel: [address] [place] [address] 12/06 confirmed~sl ACUTE ILLNESS 12/08/2015 Patient Education: Patient Medication Summary Completed 12/08/2015 Appointment: María Elena Appiah WPtel: [address] [place] [address] ACUTE ILLNESS 11/18/2015 Patient Education: Patient Medication Summary Completed 10/11/2015 Appointment: María Elena Appiah WPtel: [address] [place], [place] [phone] [place] INJECTION 10/07/2015 Patient Education: Patient Medication Summary Completed 10/07/2015 Visit Plan: Check renal arterial doppler s and ECHO Change amlodopine to lotrel 5/20mg q HS Will need stress test as well Check CMP, uric acid, ESR 10/06/2015 Appointment: María Elena Appiah WPtel: [address] [place] [address] ACUTE ILLNESS 10/06/2015 Patient Education: Patient Medication Summary Completed 10/06/2015 Patient Education: FOR[facility] NAMED [facility] - Saving [employer] - Amlodipine Besylate - 18-64 - Dynamic Portal ID Completed 10/06/2015 Appointment: María Elena Appiah WPtel: [address] [place] [address] FOLLOW UP 09/22/2015 Visit Plan: Cephalexin 500 mg PO bid Mery ly topical Mupirocin to lesions on left lateral neck and face Follow-up in one week. Sooner if symptoms worsen 09/14/2015 Appointment: June Flores WPtel: [address] [place] [address] ACUTE ILLNESS 09/14/2015 Patient Education: Patient Medication Summary Completed 09/14/2015 Visit Plan: Change bystolic to bedtime d osing and amlodopine to morning dosing Cryotherapy as above to AKs 09/07/2015 Appointment: María Elena Appiah WPtel: [address] [place], [place] [phone] 09/06 appointment made and confirmed ~ FOLLOW UP 09/07/2015 Patient Education: Patient Medication Summary Completed 09/07/2015 Visit Plan: Increase bystolic back to 20 mg daily but will split and take 10mg in AM and 10mg in PM Stress Reducers 08/18/2015 Appointment: María Elena Appiah WPtel: [address] [place] [address] 08/17/15 appt confirmed cn ACUTE ILLNESS 08/18 Patient Education: Patient Medication Summary Completed 08/18/2015 Appointment: María Elena Appiah WPtel: [address] [place] [address] BP CHECK 07/07/2015 Patient Education: Patient Medication Summary Completed 07/07/2015 Appointment: María Elena Appiah WPtel: [address] [place] [address] BP CHECK 06/24/2015 Patient Education: Patient Medication Summary Completed 06/24/2015 Appointment: María Elena Appiah WPtel: [address] [place] [address] BP CHECK 06/21/2015 Patient Education: Patient Medication Summary Completed 06/21/2015 Visit Plan: Lab discussed Continue curre nt meds and lifestyle modification Recheck lab in 6mos 06/16/2015 Appointment: María Elena Appiah WPtel: [address] [place] [address] 06/15 confirmed FOLLOW UP 06/16/2015 Patient Education: Patient Medication Summary Completed 06/16/2015 Patient Education: Patient Medication Summary Completed 06/15/2015 Visit Plan: Increase cymbalta to 60mg q HS Keep clonidine at current dose Recheck 2weeks Change xanax to klonopin 06/02/2015 Appointment: María Elena Appiah WPtel: [address] [place] [address] 06/02 lm FOLLOW UP 06/02/2015 Patient Education: Patient Medication Summary Completed 06/02/2015 Appointment: María Elena Appiah WPtel: [address] [place] [address] ACUTE ILLNESS 05/24/2015 Visit Plan: Increase clonidine to 0.2mg q HS Add cymbalta 30mg q HS Recheck 2weeks Stress Reducers Check fasting lab Discussed sleep study 05/20/2015 Appointment: María Elena Appiahtel: [address] [place] [address] ACUTE ILLNESS 05/20/2015 Patient Education: Patient Medication Summary Completed 05/20/2015 Patient Education: [facility] NAMED [facility] - [employer]aving [employer] - Cymbalta - 18-64 - Dynamic Portal ID Completed 05/20/2015 Appointment: María Elena Appiah WPtel: [address] [place] [address] BP CHECK 05/19/2015 Patient Education: Patient Medication Summary Completed 05/19/2015 Visit Plan: Topical Bactroban alternatin g with topical betamethasone Recheck 2weeks 05/10/2015 Appointment: María Elena Appiah WPtel: [address] [place] [address] 05/07 vm cn...05/07 appt confirmed OFFICE SURGER Y 05/10/2015 Patient Education: Patient Medication Summary Completed 05/10/2015 Ref[facility]: [facility] [address] Referral Initiated 05/04/2015 Visit Plan: Saline nasal flushes prn. Ty lenol/Motrin prn headache. Notify if persists/symptoms worsening. Depomedrol 40mg IM today 03/16/2015 Appointment: María Elena Appiah WPtel: [address] [place] [address] ACUTE ILLNESS 03/16/2015 Patient Education: Patient Medication Summary Completed 03/16/2015 Appointment: María Elena Appiahtel: [address] [place] [address] ER Follow UP 03/09/2015 Visit Plan: Cryotherapy to lesions as ab ove 10/27/2014 Appointment: María Elena Appiah WPtel: [address] [place], [place] [id number] OFFICE SURGERY 10/27/2014 Patient Education: Patient Medication Summary Completed 10/27/2014 Appointment: June Flores WPtel: [address] [place] [address] ACUTE ILLNESS 09/11/2014 Patient Education: Patient Medication Summary Completed 09/11/2014 Visit Plan: Lab discussed Lipitor 10mg d aily Coenzyme Q-10 400mg daily Vitamin D3 5000u daily Recheck lipids with LFTs in 3mos then fwup 08/31/2014 Appointment: María Elena Appiah WPtel: [address] [place] [address] 08/28 voicehiil FOLLOW UP 08/31/2014 Patient Education: Patient Medication Summary Completed 08/31/2014 Appointment: María Elena Appiah WPtel: [address] [place] [address] [place] LAB 08/27/2014 Appointment: María Elena Appiah WPtel: [address] [place] [address] [place] LAB 08/27/2014 Patient Education: Patient Medication Summary Completed 08/27/2014 Appointment: María Elena Appiah WPtel: [address] [place] [address] ACUTE ILLNESS 07/23/2014 Appointment: María Elena Appiah WPtel: [address] [place] [address] ACUTE ILLNESS 07/21/2014 Patient Education: Patient Medication Summary Completed 07/21/2014 Visit Plan: Kenalog 40mg IM today Contin ue narendra and singulair Add Flonase 07/15/2014 Appointment: María Elena Appiah WPtel: [address] [place] [address] ACUTE ILLNESS 07/15/2014 Appointment: María Elena Appiah WPtel: [address] [place], [place] [phone] ACUTE ILLNESS 07/15/2014 Patient Education: Patient Medication Summary Completed 07/15/2014 Visit Plan: Will do metolazone 2.5mg prn with 6 potassium and see if causes as severe cramping Trial of of seroquel XR 50mg q PM with evening meal and let us know how works 05/18/2014 Appointment: María Elena Appiah WPtel: [address] [place], [place] [phone] 05/15 left message FOLLOW UP 05/18/2014 Patient Education: Patient Medication Summary Completed 05/18/2014 Appointment: María Elena Appiah WPtel: [address] [place], [place] [phone] LAB 05/14/2014 Patient Education: Patient Medication Summary Completed 05/14/2014 Appointment: María Elena Appiah WPtel: [address] [place], [place] [phone] [place] INJECTION 04/22/2014 Visit Plan: Tisha and Miranda today a nd finish abx given from urgent care 04/21/2014 Appointment: María Elena Appiah WPtel: [address] [place], [place] [phone] [place] INJECTION 04/21/2014 Patient Education: Patient Medication Summary Completed 04/21/2014 Appointment: June Flores WPtel: [address] [place], [place] [phone] ACUTE ILLNESS 03/04/2014 Patient Education: Patient Medication Summary Completed 03/04/2014 Appointment: María Elena Appiah WPtel: [address] [place], [place] [phone] [place] INJECTION 02/27/2014 Patient Education: Patient Medication Summary Completed 02/27/2014 Visit Plan: Cryotherapy as above to all lesions Patient wants to try no meds for insomnia for a while and see how goes 01/13/2014 Appointment: María Elena Appiah WPtel: [address] [place], [place] [phone] OFFICE SURGERY 01/13/2014 Patient Education: Patient Medication Summary Completed 01/13/2014 Visit Plan: Stop Melatonin Stop Soma Tri al of trazadone 75mg q HS See ENT for possible tubes as has had chronic ETD and serous otitis media with numerous steroids 12/24/2013 Appointment: María Elena Appiah WPtel: [address] [place] [address] ACUTE ILLNESS 12/24/2013 Patient Education: Patient Medication Summary Completed 12/24/2013 Visit Plan: Saline nasal flushes prn. Ty lenol/Motrin prn headache. Notify if persists/symptoms worsening. 11/12/2013 Appointment: María Elena Appiah WPtel: [address] [place] [address] ACUTE ILLNESS 11/12/2013 Patient Education: Patient Medication Summary Completed 11/12/2013 Appointment: María Elena Appiah WPtel: [address] [place] [address] ACUTE ILLNESS 10/21/2013 Patient Education: Patient Medication Summary Completed 10/21/2013 Visit Plan: Sleep hygiene and sleep rout ine Melatonin 10mg q HS Support stockings and observe 09/22/2013 Appointment: María Elena Appiah WPtel: [address] [place] [address] ACUTE ILLNESS 09/22/2013 Patient Education: Patient Medication Summary Completed 09/22/2013 Appointment: June Flores WPtel: [address] [place] [address] ACUTE ILLNESS 08/27/2013 Patient Education: Patient Medication Summary Completed 08/27/2013 Visit Plan: Proceed with CT scan of head /neck Proceed with occipital nerve injections Butrans 20mcg patch weekly until can get into see Dr. Mcdonough for injections 08/04/2013 Appointment: María Elena Appiah WPtel: [address] [place] [address] FOLLOW UP 08/04/2013 Patient Education: Patient Medication Summary Completed 08/04/2013 Visit Plan: OMT done Daily neck stretche s, moist heat Increase Celebrex to 200mg BID Add flexeril 07/23/2013 Appointment: María Elena Appaih WPtel: [address] [place] [address] 07/22 voicemail FOLLOW UP 07/23/2013 Patient Education: Patient Medication Summary Completed 07/23/2013 Appointment: María Elena Appiah WPtel: [address] [place] [address] ACUTE ILLNESS 06/23/2013 Patient Education: Patient Medication Summary Completed 06/23/2013 Appointment: María Elena Appiah WPtel: [address] [place] [address] ACUTE ILLNESS 05/26/2013 Patient Education: Patient Medication Summary Completed 05/26/2013 Visit Plan: Decrease clonidine to 0.1mg TID If BP remains stable consider decreasing amlodopine Prednisone for 5 days BP check in 1mo 04/16/2013 Appointment: María Elena Appiah WPtel: [address] [place] [address] 04/14 pt called and confirmed appt FOLLOW UP 04/16/2013 Patient Education: Patient Medication Summary Completed 04/16/2013 Appointment: María Elena Appiah WPtel: [address] [place] [address] ACUTE ILLNESS 03/05/2013 Patient Education: Patient Medication Summary Completed 03/05/2013 Visit Plan: Pt has MARIA ELENA on with Dr. Sharonda Arita Butrans patch Refill Hydrocodone early tomorrow 12/23/2012 Appointment: María Elena Appiah WPtel: [address] [place] [address] FOLLOW UP 12/23/2012 Patient Education: Patient Medication Summary Completed 12/23/2012 Appointment: Lashawn Eckert WPtel: [address] [place] [address] ACUTE ILLNESS 12/16/2012 Patient Education: Patient Medication Summary Completed 12/16/2012 Visit Plan: Proceed with updated MRI of LS spine Continue gabapentin and add soma and diclofenac Will likely need to go for another epidural 12/09/2012 Appointment: María Elena Appiah WPtel: [address] [place] [address] ACUTE ILLNESS 12/09/2012 Patient Education: Patient Medication Summary Completed 12/09/2012 Visit Plan: Injection as above Finish me drol dose pack Chiropracter this afternoon 12/04/2012 Appointment: María Elena Appiah WPtel: [address] [place] [address] ACUTE ILLNESS 12/04/2012 Patient Education: Patient Medication Summary Completed 12/04/2012 Appointment: Mary Tillman WPtel: [address] [place] [address] FOLLOW UP 11/22/2012 Patient Education: Patient Medication Summary Completed 11/22/2012 Appointment: María Elena Appiah WPtel: [address] [place] [address] ACUTE ILLNESS 11/21/2012 Patient Education: Patient Medication Summary Completed 11/21/2012 Appointment: María Elena Appiah WPtel: [address] [place] [address] BP CHECK 11/07/2012 Patient Education: Patient Medication Summary Completed 11/07/2012 Visit Plan: reports extra clonidine and extra amlodipine and extra alprazalam. extra Ketolorac and promethazine last night. Bystolic 10 mg QAM and will continue all other blood pressure meds. Pt. encouraged to rest and hydrate. Discussed stroke and LA symptoms. Pt. instructed to seek ER eval if symptoms worsen or headache persists. Pt. agrees to ER eval/EMS transport if symptoms worsen. BP re-check. 10/29/2012 Appointment: Lashawn Eckert WPtel: [address] [place] [address] ACUTE ILLNESS 10/29/2012 Patient Education: Patient Medication Summary Completed 10/29/2012 Appointment: María Elena Appiah WPtel: [address] [place], [place] [phone] ACUTE ILLNESS 10/14/2012 Patient Education: Patient Medication Summary Completed 10/14/2012 Appointment: María Elena Appiah WPtel: [address] [place], [place] [phone] UA 09/27/2012 Patient Education: Patient Medication Summary Completed 09/27/2012 Appointment: María Elena Appiah WPtel: [address] [place], [place] [phone] ACUTE ILLNESS 09/25/2012 Patient Education: Patient Medication Summary Completed 09/25/2012 Appointment: María Elena Appiah WPtel: [address] [place], [place] [phone] BP CHECK 09/24/2012 Appointment: María Elena Appiah WPtel: [address] [place], [place] [phone] ACUTE ILLNESS 08/29/2012 Patient Education: Patient Medication Summary Completed 08/29/2012 Visit Plan: Cryotherapy as above See Karlos m for right ear lesion--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 ACUTE ILLNESS 05/06/2012 Patient Education: Patient Medication Summary Completed 05/06/2012 Visit Plan: Pt wants to hold on any furt her sleep medications 04/03/2012 Appointment: María Elena Appiah WPtel: [address] [place] [address] [place] FOLLOW UP 04/03/2012 Patient Education: Patient Medication Summary Completed 04/03/2012 Appointment: María Elena Appiah WPtel: [address] [place] [address] [place] FOLLOW UP 03/19/2012 Patient Education: Patient Medication Summary Completed 03/19/2012 Appointment: María Elena Appiah WPtel: [address] [place] [address] BP CHECK 02/22/2012 Patient Education: Patient Medication Summary Completed 02/22/2012 Appointment: María Elena Appiah WPtel: [address] [place] [address] BP CHECK 02/21/2012 Patient Education: Patient Medication Summary Completed 02/21/2012 Visit Plan: Doxycycline and bactroban fo r foot Supportive care on ankles and knees Add norvasc for BP 02/20/2012 Appointment: María Elena Appiah WPtel: [address] [place] [address] ER Follow UP 02/20/2012 Patient Education: Patient Medication Summary Completed 02/20/2012 Appointment: María Elena Appiah WPtel: [address] [place] [address] ACUTE ILLNESS 01/30/2012 Patient Education: Patient Medication Summary Completed 01/30/2012 Appointment: María Elena Appiah WPtel: [address] [place] [address] ACUTE ILLNESS 01/24/2012 Patient Education: Patient Medication Summary Completed 01/24/2012 Visit Plan: Daily back stretches, moist heat, Biofreeze prn OMT done 01/10/2012 Appointment: María Elena Appiah WPtel: [address] [place] [address] ACUTE ILLNESS 01/10/2012 Patient Education: Patient Medication Summary Completed 01/10/2012 Appointment: María Elena Appiah WPtel: [address] [place] [address] FOLLOW UP 12/11/2011 Patient Education: Patient Medication Summary Completed 12/11/2011 Appointment: María Elena Appiah WPtel: [address] [place] [address] ACUTE ILLNESS 11/09/2011 Patient Education: Patient Medication Summary Completed 11/09/2011 Appointment: María Elena Appiah WPtel: [address] [place] [address] ACUTE ILLNESS 09/13/2011 Patient Education: Patient Medication Summary Completed 09/13/2011 Visit Plan: Check CBC, TSH, Free T4, CMP , ESR, Vit D, B12 now Start Prednisone today 08/31/2011 Appointment: María Elena Appiahtel: [address] [place] [address] ACUTE ILLNESS 08/31/2011 Patient Education: Patient Medication Summary Completed 08/31/2011 Appointment: María Elena Appiahtel: [address] [place] [address] [place] INJECTION 07/20/2011 Patient Education: Patient Medication Summary Completed 07/20/2011 Visit Plan: Continue current meds Monite r BP Cont stretches from PT 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 07/06/2011 Appointment: María Elena Appiahtel: [address] [place] [address] FOLLOW UP 07/06/2011 Patient Education: Patient Medication Summary Completed 07/06/2011 Appointment: María Elena Appiah WPtel: [address] [place] [address] BP CHECK 06/06/2011 Patient Education: Patient Medication Summary Completed 06/06/2011 Visit Plan: Add Bystolic at 2.5mg QAM Ad d Robaxin 750mg 2 po q HS BP check in 2wks 05/22/2011 Appointment: María Elena Appiah WPtel: [address] [place], [place] [id number] [place] FOLLOW UP 05/22/2011 Patient Education: Patient Medication Summary Completed 05/22/2011 Appointment: María Elena Appiah WPtel: [address] [place], [place] [id number] ER Follow UP 05/09/2011 Patient Education: Patient Medication Summary Completed 05/09/2011 Appointment: María Elena Appiah WPtel: [address] [place], [place] [id number] FOLLOW UP 02/22/2011 Visit Plan: Rx written for Hydrocodone 1 0/325mg #240 See Ortho 02/14/2011 Appointment: María Elena Appiah WPtel: [address] [place], [place] [id number] OMT 02/14/2011 Patient Education: Patient Medication Summary [...] lab work. 02/03/2011 Appointment: Lashawn Eckert WPtel: [address] [place], [place] [id number] ACUTE ILLNESS 02/03/2011 Patient Education: Patient Medication Summary Completed 02/03/2011 Visit Plan: OMT done Cont daily stretche s 01/31/2011 Appointment: María Elena Appiah WPtel: [address] [place], [place] [phone] ACUTE ILLNESS 01/31/2011 Patient Education: Patient Medication Summary Completed 01/31/2011 Visit Plan: Continue pain meds OMT done Proceed with PT No work this summer01/25/2011 Appointment: María Elena Appiahtel: [address] [place] [address] ACUTE ILLNESS 01/25/2011 Patient Education: Patient Medication Summary Completed 01/25/2011 Visit Plan: Start PT Long discussion abo ut getting pain meds from only us and can only have max of 4grams of tylenol per day Change to Hydrocodone 10/325mg 1- 2 po TID prn pain--#180 called to [facility] 01/18/2011 Appointment: María Elena Appiahtel: [address] [place] [address] FOLLOW UP 01/18/2011 Patient Education: Patient Medication Summary Completed 01/18/2011 Visit Plan: Daily back stretches, moist heat, Biofreeze prn 11/29/2010 Appointment: María Elena Appiahtel: [address] [place] [address] ER Follow UP 11/29/2010 Patient Education: Patient Medication Summary Completed 11/29/2010 Visit Plan: Saline nasal flushes prn. Ty lenol/Motrin prn headache. Notify if persists/symptoms worsening. Finish augmentin Add Medrol Dose Pack 10/10/2010 Appointment: María Elena Appiahtel: [address] [place], [place] [id number] ACUTE ILLNESS 10/10/2010 Patient Education: Patient Medication Summary Completed 10/10/2010 Visit Plan: Cryotherapy x3 to multiple l esions on both forearms 07/19/2010 Appointment: María Elena Appiahtel: [address] [place], [place] [id number] OFFICE SURGERY 07/19/2010 Patient Education: Patient Medication Summary Completed 07/19/2010 Appointment: María Elena Appiahtel: [address] [place], [place] [id number] BP CHECK 07/06/2010 Patient Education: Patient Medication Summary Completed 07/06/2010 Appointment: María Elena Appiah WPtel: [address] [place] [address] BP CHECK 06/30/2010 Patient Education: Patient Medication Summary Completed 06/30/2010 Appointment: María Elena Appiah WPtel: [address] [place] [address] BP CHECK 06/20/2010 Patient Education: Patient Medication Summary Completed 06/20/2010 Visit Plan: Change Diovan to Exforge 160 /5mg QD OMT done to thoracics BP check in 2wks 06/07/2010 Appointment: María Elena Appiah WPtel: [address] [place] [address] FOLLOW UP 06/07/2010 Patient Education: Patient Medication Summary Completed 06/07/2010 Appointment: María Elena Appiah WPtel: [address] [place] [address] BP CHECK 06/03/2010 Patient Education: Patient Medication Summary Completed 06/03/2010 Appointment: María Elena Appiah WPtel: [address] [place] [address] BP CHECK 06/01/2010 Patient Education: Patient Medication Summary Completed 06/01/2010 Visit Plan: Irritated skin tags to left neck x2 excised at base with scissors and base cauterized 05/30/2010 Appointment: María Elena Appiah WPtel: [address] [place] [address] OFFICE SURGERY 05/30/2010 Patient Education: Patient Medication Summary Completed 05/30/2010 Visit Plan: Saline nasal flushes prn. Ty lenol/Motrin prn headache. Notify if persists/symptoms worsening. Restart Nasonex Has allergy testing set for May 25 04/27/2010 Appointment: María Elena Appiah WPtel: [address] [place] [address] [place] ACUTE ILLNESS 04/27/2010 Patient Education: Patient Medication Summary Completed 04/27/2010 Visit Plan: Saline nasal flushes prn. Ty lenol/Motrin prn headache. Notify if persists/symptoms worsening. Omnaris BID plus injections 04/05/2010 Appointment: María Elena Appiah WPtel: [address] [place] [address] ACUTE ILLNESS 04/05/2010 Patient Education: Patient Medication Summary Completed 04/05/2010 Visit Plan: Saline nasal flushes prn. Ty lenol/Motrin prn headache. Notify if persists/symptoms worsening. 03/09/2010 Appointment: María Elena Appiah WPtel: [address] [place] [address] ACUTE ILLNESS 03/09/2010 Patient Education: Patient Medication Summary Completed 03/09/2010 Visit Plan: Cont Clonidine as is Cont Pr emarin Fwup with surgery as scheduled 03/03/2010 Appointment: María Elena Appiah WPtel: [address] [place] [address] FOLLOW UP 03/03/2010 Patient Education: Patient Medication Summary Completed 03/03/2010 Visit Plan: Check Pelvic US now Dukee tacho Sal C vs Hysterectomy 01/17/2010 Appointment: María Elena Appiahtel: [address] [place] [address] ACUTE ILLNESS 01/17/2010 Patient Education: Patient Medication Summary Completed 01/17/2010 Visit Plan: Check fasting lab and schedu le Mammogram 2gm Na Diet Trial of Ambien 10mg qhs Fwup pending lab results 12/27/2009 Appointment: María Elena Appiah WPtel: [address] [place] [address] [place] ESTABLISHED PATIENT 12/27/2009 Patient Education: Patient Medication Summary Completed 12/27/2009 Referral: Canelo Overton WPtel: [address] [place] [address] [place] Referral Initiated Referral: Philipp Flores WPtel: [address] [id number] [place] Referral Appointment Requested Instructions Comment . [...] to rest and hydrate. Discussed stroke and [place] symptoms. Pt. instructed to seek ER eval [...]
--- OUTSIDE RECORDS SUMMARY | 2020-03-13 04:50 | XMS REPORT | CCD ---
Author Author Gale Appiah D.O. 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 Name Role Phone María Elena Appiah D.O., PP Unavailable CCM Unavailable Summary Purpose Interface Exchange Insurance Providers Payer name Policy type / Coverage type Covered alliance party ID Effective Begin Date Effective End Date [facility] Commercial Insurance [id number] Unknown Family History Family History data not found Social History Social History Element Codes Description Effective Dates Tobacco history SNOMED CT: [id number] Never smoker 05/22/2011 Allergies, Adverse Reactions, Alerts [...] Fill Instructions Januvia 100 mg tablet RxNorm: 802028 TAKE ONE TABLET BY MOUTH DAILY 01/22/2020 No Stop Date Active allopurinol 300 mg tablet RxNorm: 190756 TAKE ONE TABLET BY LOPEZ TH DAILY 01/22/2020 No Stop Date Active glimepiride 4 mg tablet RxNorm: 687654 1 Tablet(s) Oral two times a day replaces 2mg dose 01/13/2020 04/12/2020 Active lisinopril 40 mg tablet RxNorm: 808655 1 Tablet(s) Oral QD repl aces 20mg dose 01/13/2020 04/12/2020 Active hydrocodone 10 mg-acetaminophen 325 mg tablet RxNorm: 386456 1-2 Tablet(s) Oral three times a day as needed for pain 01/12/2020 No Stop Date Active cyclobenzaprine 10 mg tablet RxNorm: 919384 TAKE ONE TA BLET BY MOUTH THREE TIMES A DAY NEEDED FOR MUSCLE SPASMS 01/05/2020 No Stop Date Active triamterene 75 mg-hydrochlorothiazide 50 mg tablet RxNorm: 3 32298 TAKE ONE TABLET BY MOUTH DAILY 12/29/2019 No Stop Date Active Klor-Con 8 mEq tablet,extended release RxNorm: 566107 T FARRUKH ONE TABLET BY MOUTH TWICE A DAY 12/19/2019 No Stop Date Active allopurinol 300 mg tablet RxNorm: 346360 TAKE ONE TABLET BY LOPEZ TH DAILY 12/19/2019 01/21/2020 Inactive glimepiride 2 mg tablet RxNorm: 692863 TAKE ONE TABLET BY MOUTH TWICE A DAY 12/19/2019 01/12/2020 Inactive hydrocodone 10 mg-acetaminophen 325 mg tablet RxNorm: 292646 1-2 Tablet(s) Oral three times a day as needed for pain 12/10/2019 01/11/2020 Inactive Januvia 100 mg tablet RxNorm: 562826 1 Tablet(s) Oral QD 11/20/2019 0 11/20/2019 Inactive glimepiride 2 mg tablet RxNorm: 543500 1 Tablet(s) Oral two sawyer es a day 11/20/2019 12/18/2019 Inactive cyclobenzaprine 10 mg tablet RxNorm: 772184 TAKE ONE TA BLET BY MOUTH THREE TIMES A DAY NEEDED FOR MUSCLE SPASMS 11/17/2019 01/04/2020 Inactive doxepin 25 mg capsule RxNorm: 2594165 TAKE ONE CAPSULE B Y MOUTH EVERY NIGHT AT BEDTIME NEEDED FOR SLEEP 11/16/2019 No Stop Date Active Klor-Con 8 mEq tablet,extended release RxNorm: 584282 T FARRUKH ONE TABLET BY MOUTH TWICE A DAY 11/16/2019 12/18/2019 Inactive hydrocodone 10 mg-acetaminophen 325 mg tablet RxNorm: 952534 1-2 Tablet(s) Oral three times a day as needed for pain 11/10/2019 12/09/2019 Inactive cyclobenzaprine 10 mg tablet RxNorm: 682177 TAKE ONE TA BLET BY MOUTH THREE TIMES A DAY NEEDED FOR MUSCLE SPASMS 10/23/2019 11/16/2019 Inactive duloxetine 60 mg capsule,delayed release RxNorm: 339441 1 Capsu le(s) Oral QD 10/17/2019 04/13/2020 Active celecoxib 200 mg capsule RxNorm: 426473 1 Capsule(s) Or al two times a day as needed for pain 10/17/2019 01/14/2020 Inactive gabapentin 300 mg capsule RxNorm: 579795 1 Capsule(s) O ral every night at bedtime 10/17/2019 01/15/2020 Inactive Singulair 10 mg tablet RxNorm: 449191 1 Tablet(s) Oral QD 10/17/2019 04/14/2020 Active metoprolol tartrate 100 mg tablet RxNorm: 777104 1 Tabl et(s) Oral two times a day 10/17/2019 04/13/2020 Active clonidine HCl 0.1 mg tablet RxNorm: 958462 1 Tablet(s) Oral fou r times a day 10/17/2019 04/13/2020 Active Lipitor 10 mg tablet RxNorm: 844426 1 Tablet(s) Oral QD 10/17/2019 Inactive Steglatro 15 mg tablet RxNorm: 7647144 1 Tablet(s) Oral QD 10/17/19 20 No Stop Date Active lisinopril 20 mg tablet RxNorm: 683977 1 Tablet(s) Oral QD 10/17/19 20 01/12/2020 Inactive Klor-Con 8 mEq tablet,extended release RxNorm: 230122 1 Tablet(s) Oral two times a day 10/17/2019 11/15/2019 Inactive Januvia 100 mg tablet RxNorm: 829775 1 Tablet(s) Oral QD 10/17/2019 0 01/12/2020 Inactive Glyxambi 25 mg-5 mg tablet RxNorm: 2277155 1 Tablet(s) Oral QD 01/202010/16/2019 Inactive Patient will bring in copay discount card as well Glyxambi 25 mg-5 mg tablet RxNorm: 3797068 1 Tablet(s) Oral QD 01/202010/14/2019 Inactive Patient will bring in copay discount card as well Keflex 500 mg capsule RxNorm: 129305 1 Capsule(s) Oral two time s a day 10/07/2019 10/14/2019 Inactive Premarin 1.25 mg tablet RxNorm: 327983 1 Tablet(s) Oral QD 09/30/19 20 06/25/2020 Active hydrocodone 10 mg-acetaminophen 325 mg tablet RxNorm: 490346 1-2 Tablet(s) Oral three times a day as needed for pain 09/30/2019 09/30/2019 Inactive baclofen 10 mg tablet RxNorm: 327756 TAKE ONE TABLET BY MOUTH THREE TIMES A DAY NEEDED 09/19/2019 No Stop Date Active gabapentin 300 mg capsule RxNorm: 215522 TAKE ONE CAPSU LE BY MOUTH EVERY NIGHT AT BEDTIME 09/19/2019 10/16/2019 Inactive Klor-Con 8 mEq tablet,extended release RxNorm: 928876 T FARRUKH ONE TABLET BY MOUTH TWICE A DAY 1 Tablet(s) Oral two times a day 09/19/2019 10/16/2019 [place] ctive hydrocodone 10 mg-acetaminophen 325 mg tablet RxNorm: 012745 1-2 Tablet(s) Oral three times a day as needed for pain 09/19/2019 09/29/2019 Inactive duloxetine 60 mg capsule,delayed release RxNorm: 729018 TAKE ONE CAPSULE BY MOUTH DAILY 09/11/2019 10/16/2019 Inactive Lipitor 10 mg tablet RxNorm: 713444 TAKE ONE TABLET BY MOUTH AT BEDTIME 09/11/2019 10/16/2019 Inactive lisinopril 20 mg tablet RxNorm: 891651 TAKE ONE TABLET BY MOUTH DAILY .... THIS REPLACE 10MG TABLETS 09/11/2019 10/16/2019 Inactive triamterene 75 mg-hydrochlorothiazide 50 mg tablet RxNorm: 3 18998 TAKE ONE TABLET BY MOUTH DAILY 09/11/2019 12/28/2019 Inactive allopurinol 300 mg tablet RxNorm: 698320 TAKE ONE TABLET BY LOPEZ TH DAILY 09/11/2019 12/18/2019 Inactive celecoxib 200 mg capsule RxNorm: 805019 TAKE ONE CAPSUL E BY MOUTH TWICE A DAY NEEDED FOR PAIN 09/11/2019 10/16/2019 Inactive clonidine HCl 0.1 mg tablet RxNorm: 344105 TAKE ONE TAB LET BY MOUTH FOUR TIMES A DAY 09/11/2019 10/16/2019 Inactive doxepin 25 mg capsule RxNorm: 2663781 1 Capsule(s) Oral every night at bedtime as needed for sleep 08/21/2019 11/15/2019 Inactive hydrocodone 10 mg-acetaminophen 325 mg tablet RxNorm: 072769 1-2 Tablet(s) PO TID 08/12/2019 09/29/2019 Inactive as needed for pa in - Previous quantity #240, will start dosing for #180 in April 2011 per Doctor Td. Medrol (Dustin) 4 mg tablets in a dose pack RxNorm: 346327 Tablet(s) Oral As Directed 07/21/2019 09/29/2019 Inactive Premarin 1.25 mg tablet RxNorm: 620596 1 Tablet(s) Oral QD 07/02/2009/29/2019 Inactive hydrocodone 10 mg-acetaminophen 325 mg tablet RxNorm: 816484 1-2 Tablet(s) PO TID 07/01/2019 08/11/2019 Inactive as needed for pa in - Previous quantity #240, will start dosing for #180 in April 2011 per Doctor Td. gabapentin 300 mg capsule RxNorm: 561976 1 Capsule(s) PO QHS 201809/18/2019 Inactive celecoxib 200 mg capsule RxNorm: 046620 1 Capsule(s) Or al two times a day as needed for pain 06/27/2019 06/27/2019 Inactive doxepin 25 mg capsule RxNorm: 0194287 TAKE ONE CAPSULE B Y MOUTH EVERY NIGHT AT BEDTIME NEEDED FOR SLEEP 06/24/2019 08/20/2019 Inactive Singulair 10 mg tablet RxNorm: 149082 TAKE ONE TABLET BY MOUTH JOSÉ Y 06/24/2019 10/16/2019 Inactive furosemide 40 mg tablet RxNorm: 825274 TAKE ONE TABLET BY MOUTH EVERY MORNING NEEDED FOR EDEMA . TAKE WITH POTASSIUM 06/24/2019 01/12/2020 Inactive lisinopril 20 mg tablet RxNorm: 960295 TAKE ONE TABLET BY MOUTH DAILY .... THIS REPLACE 10MG TABLETS 06/24/2019 09/10/2019 Inactive nystatin-triamcinolone 100,000 unit/g-0.1 % topical cream Rx Norm: 4773039 1 Application Topical two times a day 06/12/2019 06/19/2019 Inactive apply BID for 1 week nystatin-triamcinolone 100,000 unit/g-0.1 % topical cream Rx Norm: 0147352 1 Application Topical two times a day 06/12/2019 06/11/2019 Inactive apply BID for 1 week hydrocodone 10 mg-acetaminophen 325 mg tablet RxNorm: 464123 1-2 Tablet(s) PO QID as needed for pain MUST LAST 30 DAYS 05/28/2019 06/26/2019 Inactiv e (Response to an electronic controlled substance refill request - RxReferenceNumber: [id number]) baclofen 20 mg tablet RxNorm: 841454 1 Tablet(s) PO TID as needed for muscle spasm 05/19/2019 05/27/2019 Inactive gabapentin 300 mg capsule RxNorm: 522513 1 Capsule(s) PO QHS 201805/27/2019 Inactive lisinopril 20 mg tablet RxNorm: 582546 1 Tablet(s) PO Q D TAKE ONE TABLET BY MOUTH DAILY, REPLACES 10 MG DOSE 05/19/2019 06/23/2019 Inactive doxepin 25 mg capsule RxNorm: 6769479 TAKE ONE CAPSULE B Y MOUTH EVERY NIGHT AT BEDTIME NEEDED FOR SLEEP 05/16/2019 06/14/2019 Inactive lisinopril 20 mg tablet RxNorm: 292370 TAKE ONE TABLET BY MOUTH DAILY, REPLACES 10 MG DOSE 05/16/2019 05/18/2019 Inactive Singulair 10 mg tablet RxNorm: 560325 TAKE ONE TABLET BY MOUTH JOSÉ Y 05/16/2019 06/14/2019 Inactive gabapentin 300 mg capsule RxNorm: 844817 1 Capsule(s) PO QHS 201805/04/2019 Inactive estropipate 1.5 mg tablet RxNorm: 409313 1 Tablet(s) PO QD 05/05/2005/27/2019 Inactive estropipate 1.5 mg tablet RxNorm: 195427 1 Tablet(s) PO QD 05/05/20 19 05/04/2019 Inactive gabapentin 300 mg capsule RxNorm: 601723 1 Capsule(s) PO QHS 201805/18/2019 Inactive hydrocodone 10 mg-acetaminophen 325 mg tablet RxNorm: 847155 1-2 Tablet(s) PO QID as needed for pain MUST LAST 30 DAYS 04/25/2019 05/24/2019 Inactiv e (Response to an electronic controlled substance refill request - RxReferenceNumber: [id number]) cyclobenzaprine 10 mg tablet RxNorm: 022046 TAKE ONE TA BLET BY MOUTH THREE TIMES A DAY NEEDED FOR MUSCLE SPASMS 04/24/2019 05/18/2019 Inactive metoprolol tartrate 100 mg tablet RxNorm: 869649 TAKE O NE TABLET BY MOUTH TWICE A DAY 04/24/2019 10/16/2019 Inactive Lyrica 75 mg capsule RxNorm: 593113 1 Capsule(s) PO QHS 03/25/2019 Inactive duloxetine 60 mg capsule,delayed release RxNorm: 348508 TAKE ONE CAPSULE BY MOUTH DAILY 03/21/2019 05/19/2019 Inactive triamterene 75 mg-hydrochlorothiazide 50 mg tablet RxNorm: 3 86650 TAKE ONE TABLET BY MOUTH DAILY 03/21/2019 05/19/2019 Inactive Klor-Con 8 mEq tablet,extended release RxNorm: 803019 T FARRUKH ONE TABLET BY MOUTH TWICE A DAY 03/21/2019 09/18/2019 Inactive Lipitor 10 mg tablet RxNorm: 922151 TAKE ONE TABLET BY MOUTH AT BEDTIME 03/21/2019 09/10/2019 Inactive clonidine HCl 0.1 mg tablet RxNorm: 145249 TAKE ONE TAB LET BY MOUTH FOUR TIMES A DAY 03/21/2019 05/19/2019 Inactive allopurinol 300 mg tablet RxNorm: 931688 TAKE ONE TABLET BY LOPEZ TH DAILY 03/21/2019 05/19/2019 Inactive hydrocodone 10 mg-acetaminophen 325 mg tablet RxNorm: 145773 1-2 Tablet(s) PO QID as needed for pain MUST LAST 30 DAYS 02/28/2019 03/29/2019 Inactiv e (Response to an electronic controlled substance refill request - RxReferenceNumber: [id number]) furosemide 40 mg tablet RxNorm: 968090 TAKE ONE TABLET BY MOUTH EVERY MORNING NEEDED FOR EDEMA . TAKE WITH POTASSIUM 02/21/2019 03/22/2019 Inactive cyclobenzaprine 10 mg tablet RxNorm: 525314 TAKE ONE TA BLET BY MOUTH THREE TIMES A DAY NEEDED FOR MUSCLE SPASMS 02/21/2019 04/21/2019 Inactive lisinopril 20 mg tablet RxNorm: 342605 TAKE ONE TABLET BY MOUTH DAILY, REPLACES 10 MG DOSE 02/21/2019 05/15/2019 Inactive doxepin 25 mg capsule RxNorm: 3329900 TAKE ONE CAPSULE B Y MOUTH EVERY NIGHT AT BEDTIME NEEDED FOR SLEEP 02/21/2019 05/15/2019 Inactive nystatin 100,000 unit/gram topical cream RxNorm: 594662 APPLY TO AFFECTED AREA(S) TWO TIMES A DAY 02/21/2019 03/22/2019 Inactive estradiol 1 mg tablet RxNorm: 177118 2 Tablet(s) PO QD replaces premarin 01/22/2019 05/04/2019 Inactive lisinopril 20 mg tablet RxNorm: 701089 TAKE ONE TABLET BY MOUTH DAILY, REPLACES 10 MG DOSE 01/20/2019 02/18/2019 Inactive cyclobenzaprine 10 mg tablet RxNorm: 986349 TAKE ONE TA BLET BY MOUTH THREE TIMES A DAY NEEDED FOR MUSCLE SPASMS 01/20/2019 02/18/2019 Inactive metoprolol tartrate 100 mg tablet RxNorm: 997474 TAKE O NE TABLET BY MOUTH TWICE A DAY 01/20/2019 02/18/2019 Inactive cyclobenzaprine 10 mg tablet RxNorm: 475287 TAKE ONE TA BLET BY MOUTH THREE TIMES A DAY NEEDED FOR MUSCLE SPASMS 12/19/2018 01/17/2019 Inactive lisinopril 20 mg tablet RxNorm: 548789 TAKE ONE TABLET BY MOUTH DAILY, REPLACES 10 MG DOSE 12/19/2018 01/17/2019 Inactive duloxetine 60 mg capsule,delayed release RxNorm: 444247 TAKE ONE CAPSULE BY MOUTH DAILY 12/19/2018 01/17/2019 Inactive Lipitor 10 mg tablet RxNorm: 552839 TAKE ONE TABLET BY MOUTH AT BEDTIME 12/19/2018 01/17/2019 Inactive cyclobenzaprine 10 mg tablet RxNorm: 118924 1 Tablet(s) PO TID as needed for muscle spasm 11/19/2018 12/18/2018 Inactive Singulair 10 mg tablet RxNorm: 623719 1 Tablet(s) PO QD 11/19/2018 Inactive lisinopril 20 mg tablet RxNorm: 228447 TAKE ONE TABLET BY MOUTH DAILY, REPLACES 10 MG DOSE 11/15/2018 12/18/2018 Inactive hydrocodone 10 mg-acetaminophen 325 mg tablet RxNorm: 468818 1-2 Tablet(s) PO QID as needed for pain MUST LAST 30 DAYS 11/13/2018 12/12/2018 Inactiv e (Response to an electronic controlled substance refill request - RxReferenceNumber: [id number]) nystatin 100,000 unit/gram topical cream RxNorm: 045100 APPLY TO AFFECTED AREA(S) TWO TIMES A DAY 10/23/2018 11/06/2018 Inactive lisinopril 20 mg tablet RxNorm: 589258 1 Tablet(s) PO QD replac es 10mg dose 10/18/2018 11/14/2018 Inactive hydrocodone 10 mg-acetaminophen 325 mg tablet RxNorm: 710755 1-2 Tablet(s) QID as needed for pain MUST LAST 30 DAYS 10/08/2018 11/06/2018 Inactive (Response to an electronic controlled substance refill request - RxReferenceNumber: [id number]) lisinopril 10 mg tablet RxNorm: 121711 1 Tablet(s) PO QD 10/03/2018 0 01/21/2019 Inactive Celebrex 200 mg capsule RxNorm: 478770 TAKE ONE CAPSULE BY MOUT H TWICE A DAY 09/30/2018 05/04/2019 Inactive cyclobenzaprine 10 mg tablet RxNorm: 279638 TAKE ONE TA BLET BY MOUTH THREE TIMES A DAY NEEDED FOR MUSCLE SPASMS 09/30/2018 11/18/2018 Inactive doxepin 25 mg capsule RxNorm: 4019067 TAKE ONE CAPSULE B Y MOUTH EVERY NIGHT AT BEDTIME NEEDED 09/05/2018 10/16/2018 Inactive omeprazole 40 mg capsule,delayed release RxNorm: 600878 TAKE ONE CAPSULE BY MOUTH DAILY 09/05/2018 01/21/2019 Inactive furosemide 40 mg tablet RxNorm: 590803 TAKE ONE TABLET BY MOUTH EVERY MORNING NEEDED FOR EDEMA . TAKE WITH POTASSIUM 09/05/2018 11/03/2018 Inactive phentermine 37.5 mg tablet RxNorm: 782808 1 Tablet(s) PO QAM 201701/21/2019 Inactive doxepin 25 mg capsule RxNorm: 7119670 1 Capsule(s) PO QH S as needed for sleep TAKE ONE CAPSULE BY MOUTH EVERY NIGHT AT BEDTIME NEEDED 08/27/2018 09/04/2018 Inactive Keflex 500 mg capsule RxNorm: 015127 1 Capsule(s) PO TID 08/09/2018 1 10/19/2017 Inactive Diflucan 100 mg tablet RxNorm: 220689 1 Tablet(s) PO QD 08/09/2018 Inactive Premarin 1.25 mg tablet RxNorm: 116740 2 Tablet(s) PO QD 08/09/2018 0 05/04/2019 Inactive Zofran ODT 4 mg disintegrating tablet RxNorm: 957648 1 Tablet(s) PO Q4H as needed for nausea 08/09/2018 01/21/2019 Inactive metoprolol tartrate 100 mg tablet RxNorm: 071023 TAKE O NE TABLET BY MOUTH TWICE A DAY 2018 10/04/2018 Inactive doxepin 25 mg capsule RxNorm: 2535550 TAKE ONE CAPSULE B Y MOUTH EVERY NIGHT AT BEDTIME NEEDED 2018 08/26/2018 Inactive cyclobenzaprine 10 mg tablet RxNorm: 408633 TAKE ONE TA BLET BY MOUTH THREE TIMES A DAY NEEDED FOR MUSCLE SPASMS 2018 09/29/2018 Inactive hydrocodone 10 mg-acetaminophen 325 mg tablet RxNorm: 944975 1-2 Tablet(s) QID as needed for pain MUST LAST 30 DAYS 07/29/2018 08/27/2018 Inactive (Response to an electronic controlled substance refill request - RxReferenceNumber: [id number]) nystatin 100,000 unit/gram topical powder RxNorm: 609452 Applic ation TOP BID 07/22/2018 08/04/2018 Inactive doxepin 25 mg capsule RxNorm: 6175023 1 Capsule(s) PO QHS as needed 07/22/2018 08/05/2018 Inactive triamterene 75 mg-hydrochlorothiazide 50 mg tablet RxNorm: 3 62208 TAKE ONE TABLET BY MOUTH DAILY 07/05/2018 10/02/2018 Inactive duloxetine 60 mg capsule,delayed release RxNorm: 355119 TAKE ONE CAPSULE BY MOUTH DAILY 07/05/2018 09/02/2018 Inactive Klor-Con 8 mEq tablet,extended release RxNorm: 251973 T FARRUKH ONE TABLET BY MOUTH TWICE A DAY 07/05/2018 10/02/2018 Inactive Lipitor 10 mg tablet RxNorm: 534637 TAKE ONE TABLET BY MOUTH AT BEDTIME 07/05/2018 09/02/2018 Inactive allopurinol 300 mg tablet RxNorm: 096856 TAKE ONE TABLET BY LOPEZ TH DAILY 07/05/2018 10/02/2018 Inactive clonidine HCl 0.1 mg tablet RxNorm: 462346 TAKE ONE TAB LET BY MOUTH FOUR TIMES A DAY 07/05/2018 10/02/2018 Inactive hydrocodone 10 mg-acetaminophen 325 mg tablet RxNorm: 190220 1-2 Tablet(s) QID as needed for pain MUST LAST 30 DAYS 06/28/2018 07/27/2018 Inactive (Response to an electronic controlled substance refill request - RxReferenceNumber: [id number]) MediHoney (calcium alginate-honey) 4" X 5" bandage RxNorm: 1 Application TOP QD 06/17/2018 06/26/2018 Inactive honey-hydrocolloid dressing 4" X 5" RxNorm: 1 Application TOP QD 06/17/2018 07/16/2018 Inactive furosemide 40 mg tablet RxNorm: 000843 TAKE ONE TABLET BY MOUTH EVERY MORNING NEEDED FOR EDEMA . TAKE WITH POTASSIUM 06/10/2018 07/09/2018 Inactive This is a refill request. hydrocodone 10 mg-acetaminophen 325 mg tablet RxNorm: 530565 1-2 Tablet(s) QID as needed for pain MUST LAST 30 DAYS 05/30/2018 06/27/2018 Inactive (Response to an electronic controlled substance refill request - RxReferenceNumber: [id number]) acyclovir 800 mg tablet RxNorm: 424012 1 Tablet(s) PO 5x day 201705/22/2018 Inactive Premarin 1.25 mg tablet RxNorm: 621518 1-2 Tablet(s) PO QD 05/15/2007/13/2018 Inactive cyclobenzaprine 10 mg tablet RxNorm: 649862 1 Tablet(s) PO TID as needed for muscle spasm 05/09/2018 05/08/2018 Inactive Medrol (Dustin) 4 mg tablets in a dose pack RxNorm: 791508 Tablet(s) PO As Directed 05/02/2018 06/16/2018 Inactive hydrocodone 10 mg-acetaminophen 325 mg tablet RxNorm: 561532 1-2 Tablet(s) QID as needed for pain MUST LAST 30 DAYS 04/30/2018 05/29/2018 Inactive (Response to an electronic controlled substance refill request - RxReferenceNumber: [id number]) duloxetine 60 mg capsule,delayed release RxNorm: 507089 TAKE ONE CAPSULE BY MOUTH DAILY 04/16/2018 05/15/2018 Inactive Celebrex 200 mg capsule RxNorm: 431717 TAKE ONE CAPSULE BY MOUT H TWICE A DAY 04/16/2018 06/14/2018 Inactive Singulair 10 mg tablet RxNorm: 408995 TAKE ONE TABLET BY MOUTH JOSÉ Y 04/16/2018 11/19/2018 Inactive Lipitor 10 mg tablet RxNorm: 624659 TAKE ONE TABLET BY MOUTH AT BEDTIME 04/16/2018 05/15/2018 Inactive hydrocodone 10 mg-acetaminophen 325 mg tablet RxNorm: 983624 1-2 Tablet(s) QID as needed for pain MUST LAST 30 DAYS 03/29/2018 04/27/2018 Inactive (Response to an electronic controlled substance refill request - RxReferenceNumber: [id number]) cyclobenzaprine 10 mg tablet RxNorm: 345503 1 Tablet(s) PO TID as needed for muscle spasm 03/18/2018 05/09/2018 Inactive omeprazole 40 mg capsule,delayed release RxNorm: 984380 1 Capsu le(s) PO QD 02/26/2018 08/24/2018 Inactive hydrocodone 10 mg-acetaminophen 325 mg tablet RxNorm: 267288 1-2 Tablet(s) QID as needed for pain MUST LAST 30 DAYS 02/26/2018 03/27/2018 Inactive (Response to an electronic controlled substance refill request - RxReferenceNumber: [id number]) metoprolol tartrate 100 mg tablet RxNorm: 717372 1 Tablet(s) PO BID 02/18/2018 08/05/2018 Inactive Lyrica 75 mg capsule RxNorm: 089868 1 Capsule(s) PO QHS 01/30/2018 Inactive phentermine 37.5 mg tablet RxNorm: 605388 1 Tablet(s) PO QAM 201706/16/2018 Inactive hydrocodone 10 mg-acetaminophen 325 mg tablet RxNorm: 422261 1-2 Tablet(s) QID as needed for pain MUST LAST 30 DAYS 01/29/2018 02/25/2018 Inactive (Response to an electronic controlled substance refill request - RxReferenceNumber: [id number]) Klor-Con 8 mEq tablet,extended release RxNorm: 563873 1 Tablet( s) PO BID 01/14/2018 07/04/2018 Inactive allopurinol 300 mg tablet RxNorm: 236493 1 Tablet(s) PO QD 01/15/2007/04/2018 Inactive Lipitor 10 mg tablet RxNorm: 364241 1 Tablet(s) PO QHS 01/14/201812/2017 Inactive triamterene 75 mg-hydrochlorothiazide 50 mg tablet RxNorm: 3 19388 1 Tablet(s) PO QD 01/14/2018 07/04/2018 Inactive hydrocodone 10 mg-acetaminophen 325 mg tablet RxNorm: 538668 1-2 Tablet(s) QID as needed for pain MUST LAST 30 DAYS 12/27/2017 01/25/2018 Inactive (Response to an electronic controlled substance refill request - RxReferenceNumber: [id number]) Onglyza 5 mg tablet RxNorm: 335986 1 Tablet(s) PO QD 12/18/201701/29 Inactive metformin 500 mg tablet RxNorm: 171969 1 Tablet(s) PO BID 12/11/2017 12/10/2017 Inactive metformin 500 mg tablet RxNorm: 181353 1 Tablet(s) PO BID 12/11/2017 12/17/2017 Inactive furosemide 40 mg tablet RxNorm: 772581 1 Tablet(s) PO Q AM prn edema--take with potassium 12/11/2017 06/08/2018 Inactive cyclobenzaprine 10 mg tablet RxNorm: 369852 1 Tablet(s) PO TID as needed for muscle spasm 12/11/2017 03/18/2018 Inactive hydrocodone 10 mg-acetaminophen 325 mg tablet RxNorm: 268952 1-2 Tablet(s) QID as needed for pain MUST LAST 30 DAYS 10/23/2017 11/21/2017 Inactive (Response to an electronic controlled substance refill request - RxReferenceNumber: [id number]) Lipitor 10 mg tablet RxNorm: 034014 1 Tablet(s) PO QHS 10/16/201703/2018 Inactive cyclobenzaprine 10 mg tablet RxNorm: 265708 1 Tablet(s) PO TID as needed for muscle spasm 10/09/2017 12/10/2017 Inactive hydroxyzine HCl 25 mg tablet RxNorm: 702642 1 Tablet(s) PO BID as needed for anxiety 09/20/2017 01/29/2018 Inactive Effexor XR 75 mg capsule,extended release RxNorm: 475190 1 Caps ule(s) PO QD 09/20/2017 01/29/2018 Inactive metoprolol tartrate 100 mg tablet RxNorm: 099321 1 Tablet(s) PO BID 08/20/2017 02/18/2018 Inactive baclofen 20 mg tablet RxNorm: 805726 1 Tablet(s) PO TID as needed for muscle spasm 08/20/2017 01/21/2019 Inactive clonidine HCl 0.1 mg tablet RxNorm: 234015 1 Tablet(s) PO QID 08/2005/16/2018 Inactive Seroquel 25 mg tablet RxNorm: 939236 1 Tablet(s) PO QHS 08/17/2017 Inactive Seroquel 25 mg tablet RxNorm: 228131 1 Tablet(s) PO QHS 08/17/2017 Inactive Diflucan 100 mg tablet RxNorm: 128933 TAKE ONE TABLET BY MOUTH JOSÉ Y 07/25/2017 08/07/2017 Inactive hydrocodone 10 mg-acetaminophen 325 mg tablet RxNorm: 359866 1-2 Tablet(s) QID as needed for pain MUST LAST 30 DAYS 07/19/2017 08/17/2017 Inactive (Response to an electronic controlled substance refill request - RxReferenceNumber: [id number]) clindamycin 300 mg capsule RxNorm: 280707 1 Capsule(s) PO TID 07/1907/28/2017 Inactive clotrimazole-betamethasone 1 %-0.05 % topical cream RxNorm: 715481 Application TOP BID to elbow rash 07/19/2017 06/16/2018 Inactive Singulair 10 mg tablet RxNorm: 415010 Tablet(s) TAKE ONE TABLET BY MOUTH DAILY 07/18/2017 04/13/2018 Inactive triamterene 75 mg-hydrochlorothiazide 50 mg tablet RxNorm: 3 48938 1 Tablet(s) PO QD 07/18/2017 01/14/2018 Inactive Celebrex 200 mg capsule RxNorm: 224113 Capsule(s) TAKE ONE CAPSULE BY MOUTH TWICE A DAY 07/18/2017 10/15/2017 Inactive hydrocodone 10 mg-acetaminophen 325 mg tablet RxNorm: 051532 1-2 Tablet(s) QID as needed for pain MUST LAST 30 DAYS 06/19/2017 07/18/2017 Inactive (Response to an electronic controlled substance refill request - RxReferenceNumber: [id number]) hydrocodone 10 mg-acetaminophen 325 mg tablet RxNorm: 811044 1-2 Tablet(s) QID as needed for pain MUST LAST 30 DAYS 06/19/2017 06/18/2017 Inactive (Response to an electronic controlled substance refill request - RxReferenceNumber: [id number]) baclofen 20 mg tablet RxNorm: 536283 1 Tablet(s) PO TID as needed for muscle spasm 06/18/2017 08/20/2017 Inactive Medrol (Dustin) 4 mg tablets in a dose pack RxNorm: 955178 Tablet(s) PO As Directed 06/05/2017 07/18/2017 Inactive omeprazole 40 mg capsule,delayed release RxNorm: 174560 1 Capsu le(s) PO QD 04/20/2017 10/16/2017 Inactive Premarin 1.25 mg tablet RxNorm: 523024 1-2 Tablet(s) PO QD 04/11/20 17 05/15/2018 Inactive duloxetine 60 mg capsule,delayed release RxNorm: 168246 1 Capsu le(s) PO QD 04/11/2017 09/19/2017 Inactive furosemide 40 mg tablet RxNorm: 343279 1 Tablet(s) PO Q AM prn edema--take with potassium 04/11/2017 12/11/2017 Inactive Klor-Con 8 mEq tablet,extended release RxNorm: 571822 1 Tablet( s) PO BID 04/11/2017 01/14/2018 Inactive Lipitor 10 mg tablet RxNorm: 090199 1 Tablet(s) PO QHS 04/11/201702/2018 Inactive amlodipine 5 mg-benazepril 20 mg capsule RxNorm: 941147 1 Capsu le(s) PO QD 04/11/2017 01/29/2018 Inactive allopurinol 300 mg tablet RxNorm: 955059 1 Tablet(s) PO QD 04/11/20 17 01/14/2018 Inactive clonidine HCl 0.1 mg tablet RxNorm: 337931 1 Tablet(s) PO QID 04/0508/19/2017 Inactive baclofen 20 mg tablet RxNorm: 529562 1 Tablet(s) PO TID as needed for muscle spasm 04/02/2017 06/18/2017 Inactive Premarin 1.25 mg tablet RxNorm: 944584 1-2 Tablet(s) PO QD 03/20/20 17 04/10/2017 Inactive hydrocodone 10 mg-acetaminophen 325 mg tablet RxNorm: 253438 1-2 Tablet(s) QID as needed for pain MUST LAST 30 DAYS 03/14/2017 01/21/2019 Inactive (Response to an electronic controlled substance refill request - RxReferenceNumber: [id number]) metoprolol tartrate 100 mg tablet RxNorm: 494969 1 Tablet(s) PO BID 02/12/2017 08/20/2017 Inactive hydrocodone 10 mg-acetaminophen 325 mg tablet RxNorm: 499229 1-2 Tablet(s) QID as needed for pain MUST LAST 30 DAYS 02/08/2017 03/09/2017 Inactive (Response to an electronic controlled substance refill request - [facility] [id number]) metoprolol tartrate 100 mg tablet RxNorm: 895472 TAKE O NE TABLET BY MOUTH TWICE A DAY 01/11/2017 02/12/2017 Inactive metoprolol tartrate 100 mg tablet RxNorm: 943354 1 Tablet(s) PO BID 12/18/2016 12/17/2016 Inactive metoprolol tartrate 100 mg tablet RxNorm: 015232 1 Tablet(s) PO BID 12/18/2016 01/10/2017 Inactive furosemide 40 mg tablet RxNorm: 926681 1 Tablet(s) PO Q AM prn edema--take with potassium 12/13/2016 02/10/2017 Inactive amitriptyline 100 mg tablet RxNorm: 615752 1 Tablet(s) PO QHS 11/2812/12/2016 Inactive baclofen 20 mg tablet RxNorm: 843697 1 Tablet(s) PO TID as needed for muscle spasm 11/14/2016 04/01/2017 Inactive triamterene 75 mg-hydrochlorothiazide 50 mg tablet RxNorm: 3 37010 1 Tablet(s) PO QD 11/14/2016 11/13/2016 Inactive metolazone 2.5 mg tablet RxNorm: 417841 TAKE ONE TABLET BY MOUTH DAILY NEEDED FOR EDEMA 11/14/2016 12/12/2016 Inactive triamterene 75 mg-hydrochlorothiazide 50 mg tablet RxNorm: 3 13925 1 Tablet(s) PO QD 11/14/2016 07/18/2017 Inactive amitriptyline 50 mg tablet RxNorm: 213324 TAKE ONE TABL ET BY MOUTH AT BEDTIME NEEDED FOR SLEEP 11/14/2016 11/27/2016 Inactive Cymbalta 60 mg capsule,delayed release RxNorm: 748117 1 Capsule (s) PO QHS 11/14/2016 12/12/2016 Inactive clonidine HCl 0.1 mg tablet RxNorm: 897579 1 Tablet(s) PO QID 11/1304/04/2017 Inactive amitriptyline 50 mg tablet RxNorm: 376663 1 Tablet(s) P O QHS as needed for sleep 11/01/2016 11/27/2016 Inactive duloxetine 60 mg capsule,delayed release RxNorm: 449576 TAKE ONE CAPSULE BY MOUTH DAILY 10/20/2016 01/17/2017 Inactive allopurinol 300 mg tablet RxNorm: 841569 TAKE ONE TABLET BY LOPEZ TH DAILY 10/20/2016 01/16/2017 Inactive Lyrica 75 mg capsule RxNorm: 212116 TAKE ONE CAPSULE BY MOUTH EVERY NIGHT AT BEDTIME 10/20/2016 12/10/2016 Inactive Klor-Con 8 mEq tablet,extended release RxNorm: 821337 T FARRUKH ONE TABLET BY MOUTH TWICE A DAY 10/20/2016 01/17/2017 Inactive Celebrex 200 mg capsule RxNorm: 462156 TAKE ONE CAPSULE BY MOUT H TWICE A DAY 10/20/2016 07/18/2017 Inactive Bystolic 10 mg tablet RxNorm: 179687 TAKE ONE TABLET BY MOUTH EVERY NIGHT AT BEDTIME 10/20/2016 12/17/2016 Inactive amlodipine 5 mg-benazepril 20 mg capsule RxNorm: 073506 TAKE ONE CAPSULE BY MOUTH EVERY NIGHT AT BEDTIME -- TO REPLACE AMLODOPINE 10/20/20162016 Inactive Lipitor 10 mg tablet RxNorm: 901935 TAKE ONE TABLET BY MOUTH EVERY NIGHT AT BEDTIME 10/20/2016 01/17/2017 Inactive alprazolam 0.5 mg tablet RxNorm: 915177 3 Tablet(s) PO QHS as needed for sleep/anxiety 09/20/2016 10/31/2016 Inactive Tamiflu 75 mg capsule RxNorm: 730110 1 Capsule(s) PO QD 09/19/2016 Inactive Lyrica 75 mg capsule RxNorm: 433281 1 Capsule(s) PO QHS 09/19/2016 Inactive prednisone 20 mg tablet RxNorm: 535671 1 Tablet(s) PO QD 08/10/2016 1 10/17/2015 Inactive doxycycline hyclate 100 mg capsule RxNorm: 9915973 1 Capsule(s) PO BID 08/10/2016 08/19/2016 Inactive Medrol (Dustin) 4 mg tablets in a dose pack RxNorm: 331988 Tablet(s) PO As Directed 07/31/2016 08/22/2016 Inactive Singulair 10 mg tablet RxNorm: 679181 TAKE ONE TABLET BY MOUTH JOSÉ Y 07/27/2016 07/18/2017 Inactive hydrocodone 10 mg-acetaminophen 325 mg tablet RxNorm: 671610 1-2 Tablet(s) QID as needed for pain MUST LAST 30 DAYS 07/26/2016 08/24/2016 Inactive (Response to an electronic controlled substance refill request - RxReferenceNumber: [id number]) alprazolam 0.5 mg tablet RxNorm: 333371 3 Tablet(s) PO QHS as needed for anxiety or sleep 07/26/2016 09/20/2016 Inactive clindamycin 300 mg capsule RxNorm: 568448 1 Capsule(s) PO TID 07/2007/29/2016 Inactive Diflucan 100 mg tablet RxNorm: 244946 1 Tablet(s) PO QD 07/20/2016 Inactive Levaquin 500 mg tablet RxNorm: 405174 1 Tablet(s) PO QD 07/17/2016 Inactive Levaquin 500 mg tablet RxNorm: 273785 1 Tablet(s) PO QD 07/10/2016 Inactive Levaquin 500 mg tablet RxNorm: 853436 1 Tablet(s) PO QD 07/10/2016 Inactive mupirocin 2 % topical ointment RxNorm: 902381 TOP Apply topically to affected areas twice daily 07/06/2016 09/18/2016 Inactive Singulair 10 mg tablet RxNorm: 324923 TAKE ONE TABLET BY MOUTH JOSÉ Y 06/21/2016 01/21/2019 Inactive alprazolam 0.5 mg tablet RxNorm: 303082 TAKE THREE TABL ETS BY MOUTH AT BEDTIME NEEDED FOR SLEEP OR STRESS 05/22/2016 06/20/2016 Inactive triamterene 75 mg-hydrochlorothiazide 50 mg tablet RxNorm: 3 18413 1 Tablet(s) PO QD 04/26/2016 01/12/2020 Inactive Premarin 1.25 mg tablet RxNorm: 076017 1-2 Tablet(s) PO QD 04/26/20 16 03/20/2017 Inactive Klor-Con 8 mEq tablet,extended release RxNorm: 665368 1 Tablet( s) PO BID 04/26/2016 10/19/2016 Inactive Celebrex 200 mg capsule RxNorm: 897472 1 Capsule(s) PO BID TAKE ONE CAPSULE BY MOUTH EVERY DAY 04/26/2016 10/19/2016 Inactive Lipitor 10 mg tablet RxNorm: 249074 1 Tablet(s) PO QHS 04/26/201605/2017 Inactive allopurinol 300 mg tablet RxNorm: 455966 1 Tablet(s) PO QD TAKE ONE TABLET BY MOUTH EVERY DAY 04/26/2016 10/19/2016 Inactive amlodipine 5 mg-benazepril 20 mg capsule RxNorm: 649317 1 Capsule(s) PO QHS replaces amlodopine 04/26/2016 10/19/2016 Inactive duloxetine 60 mg capsule,delayed release RxNorm: 831542 1 Capsu le(s) PO QD 04/26/2016 10/19/2016 Inactive Bystolic 10 mg tablet RxNorm: 694271 1 Tablet(s) PO QHS 04/26/2016 Inactive Singulair 10 mg tablet RxNorm: 040097 1 Tablet(s) PO QD TAKE ONE TABLET BY MOUTH DAILY 04/26/2016 06/20/2016 Inactive clonidine HCl 0.1 mg tablet RxNorm: 646845 1 Tablet(s) PO QID 04/2610/22/2016 Inactive hydrocodone 10 mg-acetaminophen 325 mg tablet RxNorm: 909669 1-2 Tablet(s) QID as needed for pain TAKE ONE TO TWO TABLETS BY MOUTH FOUR TIMES A DAY . MUST LAST 30 DAYS 03/31/2016 04/29/2016 Inactive (Response to an electronic controlled substance refill request - RxReferenceNumber: [id number]) Klor-Con 8 mEq tablet,extended release RxNorm: 928121 T FARRUKH ONE TABLET BY MOUTH TWICE A DAY 03/24/2016 09/29/2019 Inactive prednisone 20 mg tablet RxNorm: 893386 1 Tablet(s) PO QD 03/09/2016 0 03/08/2016 Inactive prednisone 20 mg tablet RxNorm: 143308 1 Tablet(s) PO QD 03/09/2016 0 03/13/2016 Inactive alprazolam 0.5 mg tablet RxNorm: 515521 3 Tablet(s) PO QHS as needed for sleep/stress 03/02/2016 01/21/2019 Inactive mupirocin 2 % topical ointment RxNorm: 860121 TOP twice daily to affected areas of face and neck 02/21/2016 04/25/2016 Inactive clonidine HCl 0.1 mg tablet RxNorm: 777746 TAKE ONE TAB LET BY MOUTH FOUR TIMES A DAY 02/15/2016 09/29/2019 Inactive clonidine HCl 0.1 mg tablet RxNorm: 781800 1 Tablet(s) PO QID 02/1404/25/2016 Inactive Premarin 1.25 mg tablet RxNorm: 222705 1-2 Tablet(s) PO QD 02/15/20 16 03/15/2016 Inactive Klor-Con 8 mEq tablet,extended release RxNorm: 795890 T FARRUKH ONE TABLET BY MOUTH TWICE A DAY 02/15/2016 03/15/2016 Inactive potassium chloride ER 20 mEq tablet,extended release(part/cr yst) RxNorm: 545681 2 Tablet(s) PO BID 02/15/2016 03/15/2016 Inactive Macrobid 100 mg capsule RxNorm: 622522 1 Capsule(s) PO BID 01/24/20 16 01/30/2016 Inactive prednisone 20 mg tablet RxNorm: 977202 Take 3tabs PO QD x 2 days, then 2 tabs PO QD x 2 days, then 1 tab PO QD x 2 days, then 1/2 tab PO QDy x 2 days 12/23/2015 04/25/2016 Inactive Klor-Con 8 mEq tablet,extended release RxNorm: 077796 T FARRUKH ONE TABLET BY MOUTH TWICE A DAY 12/20/2015 02/14/2016 Inactive alprazolam 1 mg tablet RxNorm: 331084 1 1/2 Tablet(s) PO QHS 201501/23/2016 Inactive nystatin 100,000 unit/gram topical cream RxNorm: 593668 APPLY TO AFFECTED AREA(S) TWO TIMES A DAY 11/30/2015 12/14/2015 Inactive Singulair 10 mg tablet RxNorm: 794728 TAKE ONE TABLET BY MOUTH JOSÉ Y 11/18/2015 04/25/2016 Inactive allopurinol 300 mg tablet RxNorm: 564594 1 Tablet(s) PO QD TAKE ONE TABLET BY MOUTH EVERY DAY 10/26/2015 04/22/2016 Inactive Singulair 10 mg tablet RxNorm: 788468 TAKE ONE TABLET BY MOUTH JOSÉ Y 10/26/2015 11/17/2015 Inactive duloxetine 60 mg capsule,delayed release RxNorm: 371259 1 Capsu le(s) PO QD 10/26/2015 04/22/2016 Inactive triamterene 75 mg-hydrochlorothiazide 50 mg tablet RxNorm: 3 73232 1 Tablet(s) PO QD 10/26/2015 11/14/2016 Inactive potassium chloride ER 20 mEq tablet,extended release(part/cr yst) RxNorm: 328808 2 Tablet(s) PO BID 10/26/2015 02/14/2016 Inactive Lipitor 10 mg tablet RxNorm: 727366 1 Tablet(s) PO QHS 10/26/2015 Inactive amlodipine 5 mg-benazepril 20 mg capsule RxNorm: 144413 1 Capsule(s) PO QHS replaces amlodopine 10/26/2015 04/22/2016 Inactive Bystolic 10 mg tablet RxNorm: 058564 1 Tablet(s) PO QHS 10/26/2015 Inactive amlodipine 5 mg-benazepril 20 mg capsule RxNorm: 647529 1 Capsule(s) PO QHS replaces amlodopine 10/06/2015 10/25/2015 Inactive amlodipine 5 mg tablet RxNorm: 283546 1 Tablet(s) PO QHS 09/30/2015 0 04/25/2016 Inactive metolazone 2.5 mg tablet RxNorm: 486197 TAKE ONE TABLET BY MOUTH DAILY NEEDED FOR EDEMA 09/30/2015 01/21/2019 Inactive duloxetine 60 mg capsule,delayed release RxNorm: 057813 1 Capsu le(s) PO QD 09/30/2015 10/25/2015 Inactive cephalexin 500 mg capsule RxNorm: 415647 1 Capsule(s) PO BID 201509/23/2015 Inactive mupirocin 2 % topical ointment RxNorm: 250627 TOP twice daily to affected areas of face and neck 09/14/2015 02/20/2016 Inactive baclofen 20 mg tablet RxNorm: 051338 1 Tablet(s) PO TID as needed for muscle spasm 09/01/2015 11/14/2016 Inactive clonidine HCl 0.1 mg tablet RxNorm: 204398 1 Tablet(s) PO QID 09/0102/14/2016 Inactive alprazolam 1 mg tablet RxNorm: 922911 1 1/2 Tablet(s) PO QHS 201409/09/2015 Inactive baclofen 20 mg tablet RxNorm: 556626 1 Tablet(s) PO TID as needed for muscle spasm 07/23/2015 09/01/2015 Inactive omeprazole 40 mg capsule,delayed release RxNorm: 664429 1 Capsu le(s) PO QD 07/23/2015 04/25/2016 Inactive alprazolam 1 mg tablet RxNorm: 667644 1 1/2 Tablet(s) PO QHS 201408/10/2015 Inactive Bystolic 10 mg tablet RxNorm: 550364 1 Tablet(s) PO BID 06/24/2015 Inactive allopurinol 300 mg tablet RxNorm: 815948 1 Tablet(s) PO QD TAKE ONE TABLET BY MOUTH EVERY DAY 06/23/2015 10/20/2015 Inactive alprazolam 1 mg tablet RxNorm: 613241 1 1/2 Tablet(s) PO QHS 201407/06/2015 Inactive clonidine HCl 0.1 mg tablet RxNorm: 309756 1 Tablet(s) PO QID 06/0209/01/2015 Inactive clonidine HCl 0.1 mg tablet RxNorm: 672335 1 Tablet(s) PO QID 06/0206/01/2015 Inactive Cymbalta 60 mg capsule,delayed release RxNorm: 826504 1 Capsule (s) PO QHS 06/02/2015 08/30/2015 Inactive Cymbalta 60 mg capsule,delayed release RxNorm: 514546 1 Capsule (s) PO QHS 06/02/2015 06/01/2015 Inactive clonidine HCl 0.1 mg tablet RxNorm: 810906 1 Tablet(s) PO TID 05/3106/01/2015 Inactive replaces 0.2mg dose metolazone 2.5 mg tablet RxNorm: 566554 TAKE ONE TABLET BY MOUTH DAILY NEEDED FOR EDEMA 05/21/2015 06/19/2015 Inactive Singulair 10 mg tablet RxNorm: 014111 TAKE ONE TABLET BY MOUTH JOSÉ Y 05/21/2015 10/17/2015 Inactive Cymbalta 30 mg capsule,delayed release RxNorm: 550847 1 Capsule (s) PO QHS 05/20/2015 11/14/2016 Inactive betamethasone valerate 0.1 % topical cream RxNorm: 705182 Appli cation TOP BID 05/10/2015 04/25/2016 Inactive Bactroban 2 % topical ointment RxNorm: 652696 Application TOP BID 0 05/10/2015 06/20/2015 Inactive baclofen 20 mg tablet RxNorm: 911526 1 Tablet(s) PO TID as needed 0 04/26/2015 07/23/2015 Inactive Lipitor 10 mg tablet RxNorm: 271236 1 Tablet(s) PO QHS 04/26/201508/2016 Inactive clonidine HCl 0.1 mg tablet RxNorm: 117268 1 Tablet(s) PO TID 04/2605/30/2015 Inactive replaces 0.2mg dose Klor-Con 8 mEq tablet,extended release RxNorm: 136712 1 Tablet( s) PO BID 04/26/2015 04/25/2016 Inactive metolazone 2.5 mg tablet RxNorm: 232142 1 Tablet(s) PO QD as ne eded for edema 04/26/2015 04/25/2015 Inactive triamterene 75 mg-hydrochlorothiazide 50 mg tablet RxNorm: 3 76850 1 Tablet(s) PO QD 04/26/2015 10/22/2015 Inactive Premarin 1.25 mg tablet RxNorm: 890339 1-2 Tablet(s) PO QD 04/26/20 15 10/22/2015 Inactive Bystolic 10 mg tablet RxNorm: 178183 1 Tablet(s) PO QAM TAKE ONE TABLET BY MOUTH EVERY MORNING 04/23/2015 06/23/2015 Inactive clonidine HCl 0.1 mg tablet RxNorm: 321727 1 Tablet(s) PO TID 03/2304/25/2015 Inactive replaces 0.2mg dose nystatin 100,000 unit/gram topical cream RxNorm: 157350 Applica tion TOP BID 03/23/2015 06/20/2015 Inactive baclofen 20 mg tablet RxNorm: 015550 1 Tablet(s) PO TID as needed 0 03/23/2015 04/25/2015 Inactive Premarin 1.25 mg tablet RxNorm: 199921 1-2 Tablet(s) PO QD 03/23/20 15 04/25/2015 Inactive Klor-Con 8 mEq tablet,extended release RxNorm: 267781 1 Tablet( s) PO BID 03/23/2015 04/25/2015 Inactive cefdinir 300 mg capsule RxNorm: 347916 2 Capsule(s) PO QD 03/16/2015 03/25/2015 Inactive baclofen 20 mg tablet RxNorm: 495910 1 Tablet(s) PO TID as needed 0 03/02/2015 03/22/2015 Inactive allopurinol 300 mg tablet RxNorm: 556403 1 Tablet(s) PO QD TAKE ONE TABLET BY MOUTH EVERY DAY 02/22/2015 05/22/2015 Inactive Klor-Con M20 mEq tablet,extended release RxNorm: 554199 2 Tablet(s) PO BID to use with lasix 02/22/2015 06/20/2015 Inactive clonidine HCl 0.1 mg tablet RxNorm: 662833 1 Tablet(s) PO TID 02/1903/22/2015 Inactive replaces 0.2mg dose Lipitor 10 mg tablet RxNorm: 103315 1 Tablet(s) PO QHS 01/20/201506/2015 Inactive Lipitor 10 mg tablet RxNorm: 581917 1 Tablet(s) PO QHS 01/20/2015 Inactive Singulair 10 mg tablet RxNorm: 709973 1 Tablet(s) PO QD TAKE ONE TABLET BY MOUTH EVERY DAY 11/20/2014 05/18/2015 Inactive Lipitor 10 mg tablet RxNorm: 760205 1 Tablet(s) PO QHS 11/20/201408/2015 Inactive allopurinol 300 mg tablet RxNorm: 046854 1 Tablet(s) PO QD TAKE ONE TABLET BY MOUTH EVERY DAY 11/20/2014 02/16/2015 Inactive Bystolic 10 mg tablet RxNorm: 711969 1 Tablet(s) PO QAM TAKE ONE TABLET BY MOUTH EVERY MORNING 11/20/2014 04/22/2015 Inactive Klor-Con 8 mEq tablet,extended release RxNorm: 063057 1 Tablet( s) PO BID 11/20/2014 02/17/2015 Inactive baclofen 20 mg tablet RxNorm: 868893 1 Tablet(s) PO TID as needed 0 11/20/2014 01/21/2019 Inactive baclofen 20 mg tablet RxNorm: 491300 1 Tablet(s) PO TID as needed 0 10/27/2014 11/19/2014 Inactive baclofen 20 mg tablet RxNorm: 479063 1 Tablet(s) PO TID as needed 0 10/26/2014 03/01/2015 Inactive allopurinol 300 mg tablet RxNorm: 941181 1 Tablet(s) PO QD TAKE ONE TABLET BY MOUTH EVERY DAY 10/26/2014 11/20/2014 Inactive Bystolic 10 mg tablet RxNorm: 771041 1 Tablet(s) PO QAM TAKE ONE TABLET BY MOUTH EVERY MORNING 10/26/2014 11/20/2014 Inactive clonidine HCl 0.1 mg tablet RxNorm: 961761 1 Tablet(s) PO TID 09/2805/27/2019 Inactive replaces 0.2mg dose clonidine HCl 0.1 mg tablet RxNorm: 649378 1 Tablet(s) PO TID 09/2802/18/2015 Inactive replaces 0.2mg dose baclofen 20 mg tablet RxNorm: 583148 1 Tablet(s) PO TID as needed 1 11/01/2013 08/30/2014 Inactive Lipitor 10 mg tablet RxNorm: 039639 1 Tablet(s) PO QHS 08/31/2014 Inactive baclofen 20 mg tablet RxNorm: 406568 1 Tablet(s) PO TID as needed 1 11/01/2013 10/26/2014 Inactive triamterene 75 mg-hydrochlorothiazide 50 mg tablet RxNorm: 3 77366 1 Tablet(s) PO QD 08/31/2014 02/26/2015 Inactive Klor-Con 8 mEq tablet,extended release RxNorm: 334067 1 Tablet( s) PO BID 08/31/2014 11/20/2014 Inactive baclofen 20 mg tablet RxNorm: 603949 1 Tablet(s) PO TID as needed 1 09/30/2013 10/25/2014 Inactive baclofen 20 mg tablet RxNorm: 850301 1 Tablet(s) PO TID as needed 1 09/30/2013 08/31/2014 Inactive omeprazole 40 mg capsule,delayed release RxNorm: 231870 1 Capsu le(s) PO QD 07/21/2014 07/23/2015 Inactive Flonase 50 mcg/actuation nasal spray,suspension RxNorm: 8963 23 1 [place] NASAL BID 07/15/2014 04/09/2017 Inactive hydrocodone 10 mg-acetaminophen 325 mg tablet RxNorm: 360149 1-2 Tablet(s) QID as needed for pain TAKE ONE TO TWO TABLETS BY MOUTH FOUR TIMES A DAY . MUST LAST 30 DAYS 06/30/2014 07/27/2014 Inactive (Response to an electronic controlled substance refill request - RxReferenceNumber: [id number]) baclofen 20 mg tablet RxNorm: 948477 1 Tablet(s) PO TID as needed 1 07/31/2014 Inactive Singulair 10 mg tablet RxNorm: 439572 1 Tablet(s) PO QD TAKE ONE TABLET BY MOUTH EVERY DAY 05/25/2014 11/20/2014 Inactive Bystolic 10 mg tablet RxNorm: 417869 TAKE ONE TABLET BY MOUTH E VERY MORNING 05/25/2014 09/21/2014 Inactive allopurinol 300 mg tablet RxNorm: 704254 1 Tablet(s) PO QD TAKE ONE TABLET BY MOUTH EVERY DAY 05/25/2014 10/21/2014 Inactive baclofen 20 mg tablet RxNorm: 214344 1 Tablet(s) PO TID as needed 0 05/25/2014 06/29/2014 Inactive allopurinol 300 mg tablet RxNorm: 417486 TAKE ONE TABLET BY LOPEZ TH EVERY DAY 05/25/2014 09/21/2014 Inactive Singulair 10 mg tablet RxNorm: 002729 1 Tablet(s) PO QD TAKE ONE TABLET BY MOUTH EVERY DAY 05/25/2014 05/24/2014 Inactive Bystolic 10 mg tablet RxNorm: 840775 1 Tablet(s) PO QAM TAKE ONE TABLET BY MOUTH EVERY MORNING 05/25/2014 10/21/2014 Inactive metolazone 2.5 mg tablet RxNorm: 355460 1 Tablet(s) PO QD as ne eded for edema 05/18/2014 04/25/2015 Inactive Lasix 40 mg tablet RxNorm: 483296 1 Tablet(s) PO RAZA ramirez take potassium supplementation with this medication 05/14/2014 05/17/2014 Inactive hydrocodone 10 mg-acetaminophen 325 mg tablet RxNorm: 844986 1-2 Tablet(s) QID as needed for pain TAKE ONE TO TWO TABLETS BY MOUTH FOUR TIMES A DAY . MUST LAST 30 DAYS 05/07/2014 06/05/2014 Inactive (Response to an electronic controlled substance refill request - RxReferenceNumber: [id number]) alprazolam 0.5 mg tablet RxNorm: 625700 TAKE ONE TABLET BY MOUTH TWICE A DAY , MUST LAST 30 DAYS 05/07/2014 05/22/2016 Inactive (Response to a n electronic controlled substance refill request - RxReferenceNumber: [id number]) diclofenac sodium 75 mg tablet,delayed release RxNorm: 88999 6 1 Tablet(s) PO BID for pain 04/24/2014 07/20/2014 Inactive Celebrex 200 mg capsule RxNorm: 300683 TAKE ONE CAPSULE BY MOUT H EVERY DAY 04/24/2014 07/20/2014 Inactive alprazolam 0.5 mg tablet RxNorm: 758821 TAKE ONE TABLET BY MOUTH TWICE A DAY , MUST LAST 30 DAYS 03/24/2014 04/22/2014 Inactive (Response to a n electronic controlled substance refill request - RxReferenceNumber: [id number]) diclofenac sodium 75 mg tablet,delayed release RxNorm: 48980 6 1 Tablet(s) PO BID for pain 03/24/2014 04/24/2014 Inactive clonidine HCl 0.1 mg tablet RxNorm: 221298 1 Tablet(s) PO TID 03/2409/28/2014 Inactive replaces 0.2mg dose Klor-Con 8 mEq tablet,extended release RxNorm: 850539 1 Tablet( s) PO BID 02/26/2014 08/31/2014 Inactive diclofenac sodium 75 mg tablet,delayed release RxNorm: 61702 6 1 Tablet(s) PO BID for pain 02/25/2014 03/24/2014 Inactive hydrocodone 10 mg-acetaminophen 325 mg tablet RxNorm: 383231 1-2 Tablet(s) QID as needed for pain TAKE ONE TO TWO TABLETS BY MOUTH FOUR TIMES A DAY . MUST LAST 30 DAYS 02/25/2014 03/26/2014 Inactive (Response to an electronic controlled substance refill request - RxReferenceNumber: [id number]) alprazolam 0.5 mg tablet RxNorm: 052650 Tablet(s) PO BI D as needed for anxiety TAKE ONE TABLET BY MOUTH TWICE A DAY , MUST LAST 30 DAYS 02/25/2014 Inactive (Response to an electronic controlled [place] bstance refill request - RxReferenceNumber: [id number]) [AttnRPh: Saving apply/adjudicate RxGRP:SG20 RxBIN:[id number] RxPCN: ID#:[id number]] alprazolam 0.5 mg tablet RxNorm: 439224 Tablet(s) TAKE ONE TABLET BY MOUTH TWICE A DAY , MUST LAST 30 DAYS 01/27/2014 02/24/2014 Inactive (Respo nse to an electronic controlled substance refill request - RxReferenceNumber: [id number]) [AttnRPh: Saving apply/adjudicate RxGRP:SG20 RxBIN:[id number] RxPCN: ID#:[id number]] hydrocodone 10 mg-acetaminophen 325 mg tablet RxNorm: 654768 1-2 Tablet(s) QID as needed for pain TAKE ONE TO TWO TABLETS BY MOUTH FOUR TIMES A DAY . MUST LAST 30 DAYS 01/27/2014 02/24/2014 Inactive (Response to an electronic controlled substance refill request - RxReferenceNumber: [id number]) alprazolam 0.5 mg tablet RxNorm: 522134 TAKE ONE TABLET BY MOUTH TWICE A DAY , MUST LAST 30 DAYS 01/27/2014 01/26/2014 Inactive (Response to a n electronic controlled substance refill request - RxReferenceNumber: [id number]) Premarin 1.25 mg tablet RxNorm: 852612 1-2 Tablet(s) PO QD 01/28/20 14 07/25/2014 Inactive alprazolam 0.5 mg tablet RxNorm: 114654 TAKE ONE TABLET BY MOUTH TWICE A DAY , MUST LAST 30 DAYS 01/27/2014 01/27/2014 Inactive (Response to a n electronic controlled substance refill request - RxReferenceNumber: [id number]) hydrocodone 10 mg-acetaminophen 325 mg tablet RxNorm: 146022 TAKE ONE TO TWO TABLETS BY MOUTH FOUR TIMES A DAY . MUST LAST 30 DAYS 01/27/20142013 Inactive (Response to an electronic controlled [place] bstance refill request - RxReferenceNumber: [id number]) Celebrex 200 mg capsule RxNorm: 408198 1 Capsule(s) PO QD TAKE ONE CAPSULE BY MOUTH EVERY DAY 12/29/2013 04/27/2014 Inactive hydrocodone 10 mg-acetaminophen 325 mg tablet RxNorm: 725454 1-2 Tablet(s) PO QID as needed for severe pain 12/29/2013 01/27/2014 Inactive allopurinol 300 mg tablet RxNorm: 577044 1 Tablet(s) PO QD TAKE ONE TABLET BY MOUTH EVERY DAY 12/29/2013 05/24/2014 Inactive alprazolam 0.5 mg tablet RxNorm: 552094 TAKE ONE TABLET BY MOUTH TWICE A DAY , MUST LAST 30 DAYS 12/29/2013 01/27/2014 Inactive (Response to a n electronic controlled substance refill request - RxReferenceNumber: [id number]) Celebrex 200 mg capsule RxNorm: 434820 1 Capsule(s) PO QD TAKE ONE CAPSULE BY MOUTH EVERY DAY 12/29/2013 12/29/2013 Inactive Bystolic 10 mg tablet RxNorm: 357219 1 Tablet(s) PO QAM TAKE ONE TABLET BY MOUTH EVERY MORNING 12/29/2013 05/24/2014 Inactive Bystolic 10 mg tablet RxNorm: 995754 1 Tablet(s) PO QAM TAKE ONE TABLET BY MOUTH EVERY MORNING 12/29/2013 12/29/2013 Inactive Singulair 10 mg tablet RxNorm: 100204 1 Tablet(s) PO QD TAKE ONE TABLET BY MOUTH EVERY DAY 12/29/2013 05/25/2014 Inactive hydrocodone 10 mg-acetaminophen 325 mg tablet RxNorm: 034843 TAKE ONE TO TWO TABLETS BY MOUTH FOUR TIMES A DAY . MUST LAST 30 DAYS 12/29/20132013 Inactive (Response to an electronic controlled [place] bstance refill request - RxReferenceNumber: [id number]) Trazadone 75mg Tablet RxNorm: 1 Tablet(s) PO QHS as needed 03/23/2014 Inactive Trazadone 75mg Tablet RxNorm: 1 Tablet(s) PO QHS 12/24/20132014 Inactive Soma 350 mg tablet RxNorm: 760984 Tablet(s) PO TAKE ON E TABLET BY MOUTH THREE TIMES A DAY NEEDED FOR MUSCLE SPASMS. THIS MUST LAST 30 DAYS BETWEEN REFILLS. 12/10/2013 12/22/2013 Inactive (Appended: Cont rolled substance eRx refill - RxReferenceNumber: [id number]) diclofenac sodium 75 mg tablet,delayed release RxNorm: 47756 6 1 Tablet(s) PO BID for pain 12/10/2013 02/24/2014 Inactive allopurinol 300 mg tablet RxNorm: 220382 1 Tablet(s) PO QD 11/20/19 14 12/29/2013 Inactive alprazolam 0.5 mg tablet RxNorm: 374028 2 Tablet(s) PO BID 11/13/19 14 12/29/2013 Inactive prn clonidine 0.1 mg tablet RxNorm: 908113 1 Tablet(s) PO TID 11/12/2013 02/09/2014 Inactive replaces 0.2mg dose Klor-Con M20 mEq tablet,extended release RxNorm: 635157 2 Tablet(s) PO BID to use with lasix 11/12/2013 05/10/2014 Inactive Singulair 10 mg tablet RxNorm: 352845 1 Tablet(s) PO QD 11/12/2013 Inactive hydrocodone 10 mg-acetaminophen 325 mg tablet RxNorm: 227532 1-2 Tablet(s) PO QID as needed for severe pain 11/12/2013 12/28/2013 Inactive Bystolic 10 mg tablet RxNorm: 421969 1 Tablet(s) PO QAM 11/12/2013 Inactive Soma 350 mg tablet RxNorm: 920859 Tablet(s) PO TAKE ON E TABLET BY MOUTH THREE TIMES A DAY NEEDED FOR MUSCLE SPASMS. THIS MUST LAST 30 DAYS BETWEEN REFILLS. 10/13/2013 12/10/2013 Inactive (Appended: Cont rolled substance eRx refill - RxReferenceNumber: [id number]) hydrocodone 10 mg-acetaminophen 325 mg tablet RxNorm: 217949 1-2 Tablet(s) PO QID as needed for severe pain 10/03/2013 11/11/2013 Inactive diclofenac sodium 75 mg tablet,delayed release RxNorm: 43967 8 1 Tablet(s) PO BID for pain 09/11/2013 12/10/2013 Inactive alprazolam 0.5 mg tablet RxNorm: 570340 1 Tablet(s) PO BID May refill on 04/26/13 09/01/2013 10/30/2013 Inactive prn hydrocodone 10 mg-acetaminophen 325 mg tablet RxNorm: 514006 1-2 Tablet(s) PO QID as needed for severe pain 09/01/2013 10/02/2013 Inactive triamterene 75 mg-hydrochlorothiazide 50 mg tablet RxNorm: 3 67079 1 Tablet(s) PO QD 08/04/2013 08/31/2014 Inactive cyclobenzaprine 10 mg tablet RxNorm: 066082 1 Tablet(s) PO TID prn spasm 08/04/2013 08/13/2013 Inactive clonidine 0.1 mg tablet RxNorm: 392473 1 Tablet(s) PO TID 08/04/2013 11/11/2013 Inactive replaces 0.2mg dose cyclobenzaprine 10 mg tablet RxNorm: 246251 1 Tablet(s) PO TID prn spasm 07/23/2013 08/01/2013 Inactive hydrocodone 10 mg-acetaminophen 325 mg tablet RxNorm: 496914 2 1-2 Tablet(s) PO QID as needed for severe pain 06/09/2013 08/07/2013 Inactive Singulair 10 mg tablet RxNorm: 340644 1 Tablet(s) PO QD 05/29/2013 Inactive Klor-Con 8 mEq tablet,extended release RxNorm: 047633 1 Tablet( s) PO BID 05/29/2013 02/26/2014 Inactive allopurinol 300 mg tablet RxNorm: 700618 1 Tablet(s) PO QD 05/29/20 13 11/19/2013 Inactive Bystolic 10 mg tablet RxNorm: 445826 1 Tablet(s) PO QAM take one daily in the morning. 05/29/2013 11/11/2013 Inactive scopolamine 1.5 mg 72 hr Transderm Patch RxNorm: 125370 Application TD Q72H for motion sickness 05/26/2013 07/22/2013 Inactive Soma 350 mg tablet RxNorm: 870942 1 Tablet(s) PO TID as needed for spasm 05/19/2013 10/13/2013 Inactive diclofenac sodium 75 mg tablet,delayed release RxNorm: 01561 8 1 Tablet(s) PO BID for pain 05/14/2013 07/22/2013 Inactive allopurinol 300 mg tablet RxNorm: 115005 1 Tablet(s) PO QD 04/25/2005/28/2013 Inactive alprazolam 0.5 mg tablet RxNorm: 221144 1 Tablet(s) PO BID May refill on 04/26/13 04/25/2013 06/23/2013 Inactive prn Celebrex 200 mg capsule RxNorm: 148016 1 Capsule(s) PO QD 04/16/2013 12/29/2013 Inactive alprazolam 0.5 mg tablet RxNorm: 246619 1 Tablet(s) PO BID May refill on 04/26/13 04/16/2013 04/24/2013 Inactive prn Soma 350 mg tablet RxNorm: 413679 1 Tablet(s) PO TID as needed for spasm 04/16/2013 No Stop Date Active Lasix 40 mg tablet RxNorm: 824378 1 Tablet(s) PO QAM s hould take potassium supplementation with this medication 04/16/2013 06/14/2013 Inactive clonidine 0.1 mg tablet RxNorm: 972078 1 Tablet(s) PO TID 04/16/2013 08/03/2013 Inactive replaces 0.2mg dose prednisone 20 mg tablet RxNorm: 510714 1 Tablet(s) PO BID 04/16/2013 04/20/2013 Inactive diclofenac sodium 75 mg tablet,delayed release RxNorm: 22091 8 1 Tablet(s) PO BID for pain 04/14/2013 05/13/2013 Inactive hydrocodone 10 mg-acetaminophen 325 mg tablet RxNorm: 275164 2 1-2 Tablet(s) PO QID as needed for severe pain 04/14/2013 No Stop Date Active Lasix 40 mg tablet RxNorm: 927355 1 Tablet(s) PO QAM s hould take potassium supplementation with this medication 03/31/2013 04/15/2013 Inactive Celebrex 200 mg capsule RxNorm: 536865 1 Capsule(s) PO QD 03/31/2013 04/15/2013 Inactive alprazolam 0.5 mg tablet RxNorm: 933847 1 Tablet(s) PO BID 03/28/20 13 04/15/2013 Inactive prn hydrocodone 10 mg-acetaminophen 325 mg tablet RxNorm: 327915 2 1-2 Tablet(s) PO QID as needed for severe pain 03/10/2013 No Stop Date Active metformin ER 500 mg 24 hr tablet,extended release RxNorm: 86 1018 1 Tablet(s) PO QD 03/06/2013 07/22/2013 Inactive clindamycin 300 mg capsule RxNorm: 796507 2 Capsule(s) PO TID 03/0503/14/2013 Inactive Zaroxolyn 2.5 mg tablet RxNorm: 410875 1 Tablet(s) PO QAM 03/05/2013 05/19/2015 Inactive amlodipine 10 mg tablet RxNorm: 010306 1 Tablet(s) PO QD 03/03/2013 0 05/25/2013 Inactive Norvasc 10 mg tablet RxNorm: 125802 1 Tablet(s) PO QD 02/28/201307/11 Inactive Celebrex 200 mg capsule RxNorm: 079683 1 Capsule(s) PO QD 02/28/2013 03/30/2013 Inactive diclofenac sodium 75 mg tablet,delayed release RxNorm: 08828 8 1 Tablet(s) PO BID for pain 02/14/2013 03/15/2013 Inactive Soma 350 mg tablet RxNorm: 580680 1 Tablet(s) PO TID as needed for spasm 02/14/2013 No Stop Date Active hydrocodone 10 mg-acetaminophen 325 mg tablet RxNorm: 219688 2 1-2 Tablet(s) PO QID as needed for severe pain 02/14/2013 No Stop Date Active Norvasc 10 mg tablet RxNorm: 855358 1 Tablet(s) PO QD 02/10/201302/09 Inactive Celebrex 200 mg capsule RxNorm: 113744 1 Capsule(s) PO QD 01/27/2013 01/26/2013 Inactive Premarin 1.25 mg tablet RxNorm: 093167 1-2 Tablet(s) PO QD 01/28/20 13 06/25/2013 Inactive alprazolam 0.5 mg tablet RxNorm: 453332 1 Tablet(s) PO BID 01/28/20 13 02/25/2013 Inactive prn amlodipine 5 mg tablet RxNorm: 671394 1 Tablet(s) PO QD 01/27/2013 Inactive Celebrex 200 mg capsule RxNorm: 742238 1 Capsule(s) PO QD 01/27/2013 02/27/2013 Inactive gabapentin 600 mg tablet RxNorm: 949433 1 Tablet(s) PO QHS 01/16/20 13 07/22/2013 Inactive Soma 350 mg tablet RxNorm: 705783 1 Tablet(s) PO TID as needed for spasm 01/15/2013 No Stop Date Active hydrocodone 10 mg-acetaminophen 325 mg tablet RxNorm: 155979 2 1-2 Tablet(s) PO QID as needed for severe pain 01/15/2013 No Stop Date Active Soma 350 mg tablet RxNorm: 637332 1 Tablet(s) PO TID as needed for spasm 01/13/2013 No Stop Date Active alprazolam 0.5 mg tablet RxNorm: 086342 1 Tablet(s) PO BID 12/31/19 13 01/26/2013 Inactive prn diclofenac sodium 75 mg tablet,delayed release RxNorm: 27602 8 1 Tablet(s) PO BID for pain 12/09/2012 01/07/2013 Inactive gabapentin 600 mg tablet RxNorm: 465844 1 Tablet(s) PO QHS 12/10/19 13 01/07/2013 Inactive hydrocodone 10 mg-acetaminophen 325 mg tablet RxNorm: 104056 2 1-2 Tablet(s) PO QID as needed for severe pain 12/02/2012 No Stop Date Active Levaquin 750 mg tablet RxNorm: 669727 1 Tablet(s) PO QD 11/21/2012 Inactive Singulair 10 mg tablet RxNorm: 490826 1 Tablet(s) PO QD 11/11/2012 Inactive clonidine 0.2 mg tablet RxNorm: 034673 1 Tablet(s) PO TID 11/11/2012 04/15/2013 Inactive alprazolam 0.5 mg tablet RxNorm: 528236 1 Tablet(s) PO BID 11/12/19 13 12/10/2012 Inactive prn Klor-Con 8 mEq tablet,extended release RxNorm: 856655 1 Tablet( s) PO BID 11/11/2012 03/04/2013 Inactive hydrocodone 10 mg-acetaminophen 325 mg tablet RxNorm: 861093 2 1-2 Tablet(s) PO QID as needed for severe pain 11/06/2012 No Stop Date Active alprazolam 0.5 mg tablet RxNorm: 509053 1 Tablet(s) PO BID 10/15/19 13 11/10/2012 Inactive prn hydrocodone-acetaminophen 10 mg-325 mg tablet RxNorm: 452189 2 1-2 Tablet(s) PO QID as needed for severe pain 10/10/2012 10/09/2012 Inactive allopurinol 300 mg tablet RxNorm: 133713 1 Tablet(s) PO QD 09/20/19 13 12/18/2012 Inactive alprazolam 0.5 mg tablet RxNorm: 689414 1 Tablet(s) PO BID 09/17/19 13 10/14/2012 Inactive prn hydrocodone-acetaminophen 10 mg-325 mg tablet RxNorm: 608753 2 1-2 Tablet(s) PO QID as needed for severe pain 08/22/2012 08/21/2012 Inactive Norvasc 10 mg tablet RxNorm: 820920 1 Tablet(s) PO QD 08/12/201201/10 Inactive Premarin 1.25 mg tablet RxNorm: 451181 1-2 Tablet(s) PO QD 07/30/20 12 12/26/2012 Inactive alprazolam 0.5 mg tablet RxNorm: 738377 1 Tablet(s) PO BID 07/29/20 12 08/27/2012 Inactive prn Klor-Con 8 mEq tablet,extended release RxNorm: 667744 1 Tablet( s) PO BID 07/29/2012 11/10/2012 Inactive hydrocodone-acetaminophen 10 mg-325 mg tablet RxNorm: 713494 2 1-2 Tablet(s) PO QID as needed for severe pain 07/29/2012 No Stop Date Active Premarin 1.25 mg tablet RxNorm: 549631 1-2 Tablet(s) PO QD 07/29/20 12 07/29/2012 Inactive clonidine 0.2 mg tablet RxNorm: 173760 1 Tablet(s) PO TID 07/29/2012 10/28/2012 Inactive ketorolac 10 mg tablet RxNorm: 797210 1 Tablet(s) PO QID prn he adache 07/18/2012 No Stop Date Active hydrocodone-acetaminophen 10 mg-325 mg tablet RxNorm: 598733 2 1-2 Tablet(s) PO QID as needed for severe pain 07/03/2012 No Stop Date Active amlodipine 5 mg tablet RxNorm: 292139 1 Tablet(s) PO QD 07/02/2012 Inactive allopurinol 300 mg tablet RxNorm: 256290 1 Tablet(s) PO QD 07/02/20 12 09/19/2012 Inactive Celebrex 200 mg capsule RxNorm: 291916 1 Capsule(s) PO QD for j oint pain 06/26/2012 10/23/2012 Inactive diclofenac sodium 75 mg tablet,delayed release RxNorm: 67427 8 1 Tablet(s) PO BID for pain 06/19/2012 09/16/2012 Inactive hydrocodone-acetaminophen 10 mg-325 mg tablet RxNorm: 046252 2 1-2 Tablet(s) PO QID as needed for severe pain 06/10/2012 No Stop Date Active alprazolam 0.5 mg tablet RxNorm: 169139 1 Tablet(s) PO BID 06/03/20 12 07/02/2012 Inactive prn ketorolac 10 mg tablet RxNorm: 964808 1 Tablet(s) PO Q8H 05/27/2012 0 01/21/2019 Inactive as needed for headache hydrocodone-acetaminophen 10 mg-325 mg tablet RxNorm: 171860 2 1-2 Tablet(s) PO QID as needed for severe pain 05/15/2012 No Stop Date Active allopurinol 300 mg tablet RxNorm: 017715 1 Tablet(s) PO QD 05/14/20 12 06/12/2012 Inactive allopurinol 300 mg tablet RxNorm: 709336 1 Tablet(s) PO QD 05/14/20 12 05/13/2012 Inactive amlodipine 5 mg tablet RxNorm: 039368 1 Tablet(s) PO QD 05/01/2012 Inactive amlodipine 5 mg Tab RxNorm: 558887 1 Tablet(s) PO QD 05/01/201204/30 Inactive Celebrex 200 mg capsule RxNorm: 513604 1 Capsule(s) PO QD for j oint pain 05/01/2012 06/25/2012 Inactive Singulair 10 mg tablet RxNorm: 114979 1 Tablet(s) PO QD 05/01/2012 Inactive alprazolam 0.5 mg tablet RxNorm: 232421 1 Tablet(s) PO BID 05/01/2005/30/2012 Inactive prn Celebrex 200 mg Cap RxNorm: 846840 1 Capsule(s) PO QD for joint radu n 05/01/2012 04/30/2012 Inactive hydrocodone-acetaminophen 10 mg-325 mg tablet RxNorm: 140613 2 1-2 Tablet(s) PO QID as needed for severe pain 04/19/2012 No Stop Date Active Lasix 40 mg tablet RxNorm: 582502 1 Tablet(s) PO QAM s hould take potassium supplementation with this medication 04/05/2012 06/03/2012 Inactive alprazolam 0.5 mg Tab RxNorm: 398966 1 Tablet(s) PO BID 04/05/2012 Inactive prn hydrocodone-acetaminophen 10 mg-325 mg Tab RxNorm: 9663233 1-2 Tablet(s) PO QID as needed for severe pain 03/25/2012 03/24/2012 Inactive clonidine 0.2 mg Tab RxNorm: 869858 1 Tablet(s) PO TID 03/08/2012 Inactive alprazolam 0.5 mg Tab RxNorm: 990251 1 Tablet(s) PO BID 03/08/2012 Inactive prn Soma 350 mg tablet RxNorm: 836351 1 Tablet(s) PO TID for spasm 02/0903/18/2012 Inactive clonidine 0.2 mg tablet RxNorm: 103133 1 Tablet(s) PO TID 03/08/2012 07/28/2012 Inactive Celebrex 200 mg Cap RxNorm: 341202 1 Capsule(s) PO QD for joint radu n 03/01/2012 04/29/2012 Inactive amlodipine 5 mg Tab RxNorm: 789566 1 Tablet(s) PO QD 02/26/201202/24 Inactive amlodipine 5 mg Tab RxNorm: 047131 1 Tablet(s) PO QD 02/26/201204/25 Inactive Bactroban 2 % Ointment RxNorm: 638516 Application TOP QID to sores 02/23/2012 No Stop Date Active amlodipine 2.5 mg tablet RxNorm: 241408 1 Tablet(s) PO QHS 02/20/20 12 02/25/2012 Inactive doxycycline hyclate 100 mg Cap RxNorm: 1769435 1 Capsule(s) PO BID 02/20/2012 02/29/2012 Inactive hydrocodone-acetaminophen 10 mg-325 mg Tab RxNorm: 0681500 1-2 T ablet(s) PO QID 02/08/2012 No Stop Date Active alprazolam 0.5 mg Tab RxNorm: 224537 1 Tablet(s) PO BID 02/08/2012 Inactive prn Singulair 10 mg Tab RxNorm: 219435 1 Tablet(s) PO QD 02/08/201204/30 Inactive Soma 350 mg Tab RxNorm: 366125 1 Tablet(s) PO TID for spasm 012 03/07/2012 Inactive Soma 350 mg Tab RxNorm: 972449 1 Tablet(s) PO TID for spasm 012 02/05/2012 Inactive diclofenac sodium 75 mg tablet,delayed release RxNorm: 84838 8 1 Tablet(s) PO BID for pain 02/01/2012 03/18/2012 Inactive Celebrex 200 mg Cap RxNorm: 935781 1 Capsule(s) PO QD for joint radu n 01/30/2012 02/28/2012 Inactive Lasix 40 mg Tab RxNorm: 035123 1 Tablet(s) PO QAM 01/24/2012 03/18/20 12 Inactive potassium chloride ER 20 mEq tablet,extended release(part/cr yst) RxNorm: 161696 2 Tablet(s) PO BID 01/24/2012 02/22/2012 Inactive alprazolam 0.5 mg Tab RxNorm: 359106 1 Tablet(s) PO BID 01/11/2012 Inactive prn hydrocodone-acetaminophen 10 mg-325 mg Tab RxNorm: 8789585 1-2 T ablet(s) PO QID 01/11/2012 No Stop Date Active Ambien 10 mg Tab RxNorm: 803737 1 Tablet(s) PO QHS 01/11/2012 012 Inactive Klor-Con 8 mEq Tab RxNorm: 913961 1 Tablet(s) PO BID 01/11/201201/22 Inactive diclofenac sodium 75 mg Tab, Delayed Release RxNorm: 060784 1 Tablet(s) PO BID for pain 01/10/2012 01/31/2012 Inactive Ambien 10 mg Tab RxNorm: 362007 1 Tablet(s) PO QHS 12/11/2011 012 Inactive alprazolam 0.5 mg Tab RxNorm: 995723 1 Tablet(s) PO BID 12/11/2011 Inactive prn hydrocodone 10 mg-acetaminophen 325 mg tablet RxNorm: 344274 1-2 Tablet(s) PO TID 11/28/2011 No Stop Date Active as needed for pa in - Previous quantity #240, will start dosing for #180 in April 2011 per Doctor Td. Ambien 10 mg Tab RxNorm: 729856 1 Tablet(s) PO QHS 11/09/2011 012 Inactive alprazolam 0.5 mg Tab RxNorm: 563148 1 Tablet(s) PO BID 11/09/2011 Inactive prn hydrocodone-acetaminophen 10 mg-325 mg Tab RxNorm: 0613033 1-2 T ablet(s) PO TID 11/06/2011 No Stop Date Active as needed for pain - Previous quantity #240, will start dosing for #180 in April 2011 per Doctor Td. Singulair 10 mg Tab RxNorm: 374773 1 Tablet(s) PO QD 10/13/201110/12 Inactive Singulair 10 mg Tab RxNorm: 549243 1 Tablet(s) PO QD 10/13/201102/06 Inactive hydrocodone-acetaminophen 10 mg-325 mg Tab RxNorm: 2008768 1-2 T ablet(s) PO TID 10/10/2011 10/09/2011 Inactive as needed for pain - Previous quantity #240, will start dosing for #180 in April 2011 per Doctor Td. hydrocodone-acetaminophen 10 mg-325 mg Tab RxNorm: 1406123 1-2 T ablet(s) PO TID 10/09/2011 No Stop Date Active as needed for pain - Previous quantity #240, will start dosing for #180 in April 2011 per Doctor Td. Klor-Con 8 mEq Tab RxNorm: 321205 1 Tablet(s) PO BID 10/02/201101/09 Inactive triamterene 75 mg-hydrochlorothiazide 50 mg tablet RxNorm: 3 14136 1 Tablet(s) PO QD 09/14/2011 03/06/2013 Inactive Ambien 10 mg Tab RxNorm: 199777 1 Tablet(s) PO QHS 09/14/2011 012 Inactive hydrocodone-acetaminophen 10 mg-325 mg Tab RxNorm: 3292193 1-2 T ablet(s) PO TID 09/14/2011 No Stop Date Active as needed for pain - Previous quantity #240, will start dosing for #180 in April 2011 per Doctor Td. alprazolam 0.5 mg Tab RxNorm: 246209 1 Tablet(s) PO BID 09/14/2011 Inactive prn Zithromax 500 mg Tab RxNorm: 227846 1 Tablet(s) PO QD 09/13/201109/10 Inactive prednisone 20 mg Tab RxNorm: 801235 1 Tablet(s) PO BID 08/31/2011 Inactive Ambien 10 mg Tab RxNorm: 815346 1 Tablet(s) PO QHS 08/17/2011 011 Inactive hydrocodone-acetaminophen 10 mg-325 mg Tab RxNorm: 3560317 1-2 T ablet(s) PO TID 08/17/2011 No Stop Date Active as needed for pain - Previous quantity #240, will start dosing for #180 in April 2011 per Doctor Td. clonidine 0.2 mg Tab RxNorm: 251315 1 Tablet(s) PO TID 08/17/201112/2011 Inactive Ambien 10 mg Tab RxNorm: 301701 1 Tablet(s) PO QHS 08/17/2011 019 Inactive alprazolam 0.5 mg Tab RxNorm: 148332 1 Tablet(s) PO BID 08/17/2011 Inactive prn hydrocodone-acetaminophen 10 mg-325 mg Tab RxNorm: 6644532 1-2 T ablet(s) PO TID 08/17/2011 08/16/2011 Inactive as needed for pain - Previous quantity #240, will start dosing for #180 in April 2011 per Doctor Td. Singulair 10 mg Tab RxNorm: 870641 1 Tablet(s) PO QD 08/17/201108/16 Inactive Klor-Con 8 mEq Tab RxNorm: 904468 1 Tablet(s) PO QD 08/17/20112011 Inactive alprazolam 0.5 mg Tab RxNorm: 523665 1 Tablet(s) PO BID 07/20/2011 Inactive prn Ambien 10 mg Tab RxNorm: 885109 1 Tablet(s) PO QHS 07/20/2011 012 Inactive Singulair 10 mg Tab RxNorm: 313711 1 Tablet(s) PO QD 07/20/201107/19 Inactive Premarin 1.25 mg tablet RxNorm: 487449 2 Tablet(s) PO QD 07/20/2011 0 01/21/2019 Inactive Premarin 1.25 mg tablet RxNorm: 779572 1-2 Tablet(s) PO QD 07/20/20 11 12/16/2011 Inactive Premarin 1.25 mg Tab RxNorm: 413074 1-2 Tablet(s) PO QD 07/06/2011 Inactive alprazolam 0.5 mg Tab RxNorm: 632344 1 Tablet(s) PO BID 06/22/2011 Inactive prn alprazolam 0.5 mg Tab RxNorm: 101236 1 Tablet(s) PO BID 06/22/2011 Inactive prn Premarin 1.25 mg Tab RxNorm: 990765 1 Tablet(s) PO QD m ay do 90 day fill if desired 06/22/2011 07/05/2011 Inactive hydrocodone-acetaminophen 10 mg-325 mg Tab RxNorm: 6160618 1-2 T ablet(s) PO TID 06/22/2011 No Stop Date Active as needed for pain - Previous quantity #240, will start dosing for #180 in April 2011 per Doctor Td. clonidine 0.2 mg Tab RxNorm: 933401 1 Tablet(s) PO TID 05/25/201103/2011 Inactive triamterene-hydrochlorothiazide 75 mg-50 mg Tab RxNorm: 3108 18 1 Tablet(s) PO QD 05/25/2011 09/13/2011 Inactive alprazolam 0.5 mg Tab RxNorm: 026199 1 Tablet(s) PO BID 05/25/2011 Inactive prn hydrocodone-acetaminophen 10 mg-325 mg Tab RxNorm: 3176445 1-2 T ablet(s) PO TID 05/25/2011 No Stop Date Active as needed for pain - Previous quantity #240, will start dosing for #180 in April 2011 per Doctor Td. Robaxin-750 750 mg Tab RxNorm: 009311 2 Tablet(s) PO QHS 05/22/2011 1 Inactive prn spasm hydrocodone-acetaminophen 10 mg-325 mg Tab RxNorm: 4947785 1-2 T ablet(s) PO TID 04/26/2011 No Stop Date Active as needed for pain - Previous quantity #240, will start dosing for #180 in April 2011 per Doctor dT. alprazolam 0.5 mg Tab RxNorm: 690687 1 Tablet(s) PO BID 04/25/2011 Inactive prn Klor-Con 8 mEq Tab RxNorm: 158216 1 Tablet(s) PO QD 03/30/20112010 Inactive Klor-Con 8 mEq Tab RxNorm: 995811 1 Tablet(s) PO QD 03/29/20112010 Inactive hydrocodone-acetaminophen 10 mg-325 mg Tab RxNorm: 3354692 1-2 T ablet(s) PO TID 03/20/2011 04/25/2011 Inactive as needed for pain - Previous quantity #240, will start dosing for #180 in April 2011 per Doctor Td. alprazolam 0.5 mg Tab RxNorm: 130428 1 Tablet(s) PO BID prn 011 03/30/2011 Inactive Ambien 10 mg Tab RxNorm: 888518 1 Tablet(s) PO QHS 03/01/2011 011 Inactive cyclobenzaprine 10 mg Tab RxNorm: 679963 1 Tablet(s) PO TID 011 03/18/2012 Inactive cyclobenzaprine 10 mg Tab RxNorm: 507442 1 Tablet(s) PO TID 011 01/08/2011 Inactive cyclobenzaprine 10 mg Tab RxNorm: 008296 1 Tablet(s) PO TID 011 12/20/2010 Inactive terbinafine 250 mg Tab RxNorm: 092848 1 Tablet(s) PO QD 12/12/2010 Inactive triamterene-hydrochlorothiazide 75 mg-50 mg Tab RxNorm: 3108 18 1 Tablet(s) PO QD 12/07/2010 01/12/2020 Inactive Klor-Con 8 8 mEq Tab RxNorm: 116487 1 Tablet(s) PO QD 12/07/201001/08 Inactive Premarin 1.25 mg Tab RxNorm: 462842 2 Tablet(s) PO QD 12/07/201001/08 Inactive clonidine 0.2 mg Tab RxNorm: 445926 1 Tablet(s) PO TID 12/07/2010 Inactive hydrocodone-acetaminophen 7.5 mg-650 mg Tab RxNorm: 245789 1 Ta blet(s) PO Q4H 12/05/2010 01/21/2019 Inactive hydrocodone-acetaminophen 7.5 mg-650 mg Tab RxNorm: 860804 1 Ta blet(s) PO Q4H 10/26/2010 11/14/2010 Inactive hydrocodone-acetaminophen 7.5 mg-650 mg Tab RxNorm: 434733 1 Ta blet(s) PO Q4H 10/13/2010 10/25/2010 Inactive hydrocodone-acetaminophen 7.5 mg-650 mg Tab RxNorm: 713158 1 Ta blet(s) PO Q4H 09/15/2010 09/12/2010 Inactive alprazolam 0.5 mg Tab RxNorm: 343500 1 Tablet(s) PO BID prn 011 09/12/2010 Inactive terbinafine 250 mg Tab RxNorm: 431697 1 Tablet(s) PO QD 09/05/2010 Inactive hydrocodone-acetaminophen 7.5 mg-650 mg Tab RxNorm: 453473 1 Ta blet(s) PO Q4H 08/29/2010 09/17/2010 Inactive alprazolam 0.5 mg Tab RxNorm: 423436 1 Tablet(s) PO BID prn 010 09/27/2010 Inactive alprazolam 0.5 mg Tab RxNorm: 508186 1 Tablet(s) PO BID prn 010 09/06/2010 Inactive Klor-Con 8 mEq Tab RxNorm: 161784 1 Tablet(s) PO QD 08/08/20102010 Inactive hydrocodone-acetaminophen 7.5 mg-650 mg Tab RxNorm: 738710 1 Ta blet(s) PO Q4H 08/08/2010 08/27/2010 Inactive Ambien 10 mg Tab RxNorm: 774888 1 Tablet(s) PO QHS 08/08/2010 Inactive clonidine 0.2 mg Tab RxNorm: 376551 1 Tablet(s) PO TID 08/08/2010 Inactive Premarin 1.25 mg Tab RxNorm: 986603 2 Tablet(s) PO QD 08/08/201009/12 Inactive Ambien 10 mg Tab RxNorm: 106806 1 Tablet(s) PO QHS 07/18/2010 Inactive alprazolam 0.5 mg Tab RxNorm: 772306 1 Tablet(s) PO BID prn 08/07/2010 Inactive hydrocodone-acetaminophen 7.5 mg-650 mg Tab RxNorm: 544174 1 Ta blet(s) PO Q4H 07/12/2010 07/31/2010 Inactive clonidine 0.2 mg Tab RxNorm: 416768 1 Tablet(s) PO TID 06/20/2010 Inactive terbinafine 250 mg Tab RxNorm: 176173 1 Tablet(s) PO QD 05/24/2010 Inactive Clonidine 0.2 mg Tab RxNorm: 891976 1 Tablet(s) PO TID 05/24/201006/2010 Inactive Ambien 10 mg Tab RxNorm: 596481 1 Tablet(s) PO QHS 05/24/2010 010 Inactive alprazolam 0.5 mg Tab RxNorm: 488378 1 Tablet(s) PO BID 05/24/2010 Inactive Klor-Con 8 mEq Tab RxNorm: 123273 1 Tablet(s) PO QD 05/24/20102009 Inactive alprazolam 0.5 mg Tab RxNorm: 043943 2 Tablet(s) PO QD prn 05/24/20 10 07/17/2010 Inactive triamterene-hydrochlorothiazide 75 mg-50 mg Tab RxNorm: 3108 18 1 Tablet(s) PO QD 05/24/2010 11/19/2010 Inactive Ambien 10 mg Tab RxNorm: 324829 1 Tablet(s) PO QHS 05/23/2010 010 Inactive Alprazolam 0.5 mg Tab RxNorm: 173253 2 Tablet(s) PO QD prn 05/23/20 10 05/23/2010 Inactive Premarin 1.25 mg Tab RxNorm: 109167 2 Tablet(s) PO QD 05/19/201007/12 Inactive Hydrocodone-Acetaminophen 7.5 mg-650 mg Tab RxNorm: 571004 1 Ta blet(s) PO Q4H 05/19/2010 03/20/2011 Inactive Prednisone 20 mg Tab RxNorm: 354635 1 Tablet(s) PO BID 05/17/2010 Inactive Prednisone 20 mg Tab RxNorm: 422541 1 Tablet(s) PO BID 05/06/201001/2010 Inactive Premarin 1.25 mg Tab RxNorm: 565493 Tablet(s) PO 2 M-W-F, and 1 Bs-Qs-Blb-Sun 05/05/2010 08/02/2010 Inactive Premarin 1.25 mg Tab RxNorm: 971789 Tablet(s) PO 2 M-W-F, and 1 Bw-Os-Uye-Sun 05/04/2010 05/04/2010 Inactive Premarin 1.25 mg Tab RxNorm: 311793 Tablet(s) PO 2 M-W-F, and 1 We-Lr-Vvr-Sun 05/04/2010 05/03/2010 Inactive Prednisone 20 mg Tab RxNorm: 273073 1 Tablet(s) PO BID 04/27/2010 Inactive Alprazolam 0.5 mg Tab RxNorm: 106025 2 Tablet(s) PO QD prn 04/26/20 10 05/22/2010 Inactive Clindamycin 300 mg Cap RxNorm: 041779 2 Capsule(s) PO TID 04/05/2010 04/18/2010 Inactive Terbinafine 250 mg Tab RxNorm: 727536 1 Tablet(s) PO QD 04/04/2010 Inactive Hydrocodone-Acetaminophen 7.5 mg-650 mg Tab RxNorm: 576181 1 Ta blet(s) PO Q4H 03/30/2010 04/18/2010 Inactive Avelox 400 mg Tab RxNorm: 454839 1 Tablet(s) PO QD 03/09/2010 010 Inactive Hydrocodone-Acetaminophen 7.5 mg-650 mg Tab RxNorm: 067749 1 Ta blet(s) PO Q4H 03/08/2010 03/27/2010 Inactive Alprazolam 0.5 mg Tab RxNorm: 036531 2 Tablet(s) PO QD prn 03/08/20 10 04/25/2010 Inactive Klor-Con 8 mEq Tab RxNorm: 522755 1 Tablet(s) PO QD when takes lasi x 03/07/2010 09/29/2019 Inactive Premarin 1.25 mg Tab RxNorm: 619728 1 Tablet(s) PO QD 03/03/201003/11 Inactive Alprazolam 0.5 mg Tab RxNorm: 121262 1 Tablet(s) PO BID PRN 010 No Stop Date Active triamterene-hydrochlorothiazide 75 mg-50 mg Tab RxNorm: 3108 18 1 Tablet(s) PO QD 02/09/2010 02/03/2011 Inactive Hydrocodone-Acetaminophen 10 mg-750 mg Tab RxNorm: 231212 1 Tablet(s) PO Q4H PRN 02/09/2010 03/20/2011 Inactive Clonidine 0.2 mg Tab RxNorm: 300180 1 Tablet(s) PO TID 01/13/201009/2009 Inactive Alprazolam 0.5 mg Tab RxNorm: 156704 1 Tablet(s) PO BID PRN 010 01/12/2010 Inactive Hydrocodone-Acetaminophen 10 mg-750 mg Tab RxNorm: 708663 1 Tablet(s) PO Q4H PRN 01/13/2010 01/12/2010 Inactive ANGELIQ 1 mg-0.5 mg Tab RxNorm: 7559450 1 Tablet(s) PO QD 12/27/2009 01/23/2010 Inactive Lasix 40 mg Tab RxNorm: 801709 1 Tablet(s) PO QAM 12/14/2009 06/11/20 10 Inactive Vitamin B12 1000mcg Tablet RxNorm: 1 Tablet(s) PO QD No Start Date Active cyclobenzaprine 10 mg tablet RxNorm: 274894 1 Tablet(s) PO TID as needed DO NOT USE WITH BACLOFEN No Start Date Active Vitamin D 5,000 unit Tab RxNorm: 1 Tablet(s) PO QD No Start Date Active vitamin E (dl, acetate) 400 unit Cap RxNorm: 404680 1 Capsule(s ) PO QD No Start Date Active Benadryl 25 mg Cap RxNorm: 4688520 Capsule(s) PO PRN No Start Date Inactive amitriptyline 100 mg tablet RxNorm: 412024 1 Tablet(s) PO QHS No St art Date 11/27/2016 Inactive Zithromax Z-Dustin 250 mg tablet RxNorm: 719347 Tablet(s) PO as di rected No Start Date 07/22/2013 Inactive Klor-Con 8 mEq tablet,extended release RxNorm: 194469 1 Tablet( s) PO BID No Start Date 07/28/2012 Inactive scopolamine 1.5 mg 72 hr Transderm Patch RxNorm: 700436 Application TD Q72H for motion sickness No Start Date 05/25/2013 Inactive Klonopin 1 mg tablet RxNorm: 169140 1-2 Tablet(s) PO QHS as nee ded for sleep No Start Date 06/20/2015 Inactive Klor-Con M20 mEq tablet,extended release RxNorm: 319208 2 Tablet(s) PO BID to use with lasix No Start Date 11/11/2013 Inactive Bystolic 5 mg tablet RxNorm: 740140 1 Tablet(s) PO QD No Start Date 1 Inactive Bystolic 10 mg tablet RxNorm: 269691 1 Tablet(s) PO BID No Start Da te 07/06/2015 Inactive Premarin 1.25 mg Tab RxNorm: 743275 Tablet(s) PO 2 M-W-F, and 1 [id number] No Start Date 05/03/2010 Inactive baclofen 20 mg tablet RxNorm: 778088 1 Tablet(s) PO TID as needed for muscle spasm No Start Date 07/22/2015 Inactive hydrocodone-acetaminophen 7.5 mg-650 mg Tab RxNorm: 348612 1 Tablet(s) PO Q4H as needed for pain No Start Date 03/20/2011 Inactive albuterol sulfate 1.25 mg/3 mL Neb Solution RxNorm: 810301 1 Unit Dose INH Q4H 2boxes No Start Date 09/06/2015 Inactive Butrans 20 mcg/hour Transderm Patch RxNorm: 847773 1 TD WEEKLY apply to skin weekly after removing previous. No Start Date 07/22/2013 Inactive Medrol (Dustin) 4 mg tablets in a dose pack RxNorm: 152737 Tablet(s) PO As Directed No Start Date 07/30/2016 Inactive hydrocodone-acetaminophen 10 mg-325 mg Tab RxNorm: 4308572 1-2 Tablet(s) PO TID as needed for pain No Start Date 03/19/2011 Inactive Klonopin 1 mg tablet RxNorm: 923100 1 Tablet(s) PO QHS No Start Date 02/28/2016 Inactive honey topical RxNorm: topical No Start Date 06/16/2018 Inactive Clonidine 0.2 mg Tab RxNorm: 218281 1 Tablet(s) PO TID No Start Date 01/12/2010 Inactive ketorolac 10 mg tablet RxNorm: 425464 1 Tablet(s) PO Q8H No Start D ate 03/18/2012 Inactive as needed for headache Singulair 10 mg Tab RxNorm: 258871 1 Tablet(s) PO QD No Start Date Inactive Premarin 1.25 mg Tab RxNorm: 962714 1 Tablet(s) PO QD No Start Date 1 Inactive Flonase 50 mcg/Actuation Nasal [place] RxNorm: 1987602 1 [place] C[place] AL BID No Start Date 03/18/2012 Inactive Terbinafine 250 mg Tab RxNorm: 133051 1 Tablet(s) PO QD No Start Da te 04/03/2010 Inactive Fexofenadine 180 mg Tab RxNorm: 4447331 1 Tablet(s) PO QD No Start Date 09/06/2015 Inactive baclofen 20 mg tablet RxNorm: 420853 1 Tablet(s) PO TID as needed N o Start Date 05/25/2014 Inactive Diovan 160 mg Tab RxNorm: 193051 1 Tablet(s) PO QD No Start Date 09/12 Inactive mupirocin 2 % topical ointment RxNorm: 493331 1 Application TOP QID No Start Date 04/25/2016 Inactive ZOFRAN ODT 4 mg Tab, Rapid Dissolve RxNorm: 855099 1 Tablet(s) PO Q4H No Start Date 03/18/2012 Inactive as needed for nausea and vomiting Alprazolam 0.5 mg Tab RxNorm: 841085 1 Tablet(s) PO BID PRN No Star t Date 01/12/2010 Inactive cyclobenzaprine 10 mg tablet RxNorm: 072338 1 Tablet(s) PO TID as needed for muscle spasm No Start Date 10/08/2017 Inactive Albuterol 0.083% Aerosol Solution RxNorm: 1 Appl ication INH Q4H Use one ampule every 4 hrs with nebulizer as needed for shortness of breath. No Start Date 10/09/2010 Inactive lorazepam 1 mg tablet RxNorm: 906265 1 1/2 Tablet(s) PO QHS No Star t Date 02/02/2016 Inactive Melatonin 3 mg Tab RxNorm: 033702 Tablet(s) PO PRN No Start Date 07/11 Inactive Medrol (Dustin) 4 mg Tabs in a Dose Pack RxNorm: 635752 Tablet(s) PO N o Start Date 11/28/2010 Inactive lorazepam 1 mg tablet RxNorm: 091680 1 Tablet(s) PO QHS as need ed for sleep No Start Date 01/30/2016 Inactive hydrocodone-acetaminophen 10 mg-325 mg Tab RxNorm: 2742685 1-2 Tablet(s) PO QID as needed for severe pain No Start Date 03/24/2012 Inactive celecoxib 200 mg capsule RxNorm: 384365 1 Capsule(s) PO BID No Star t Date 06/26/2019 Inactive amlodipine 5 mg-benazepril 20 mg capsule RxNorm: 959401 1 Capsu le(s) PO QD No Start Date 04/10/2017 Inactive Bystolic 20 mg tablet RxNorm: 555466 1/2 Tablet(s) PO QAM No Start Date 01/23/2016 Inactive Bystolic 20 mg tablet RxNorm: 916604 1 Tablet(s) PO QAM No Start Da te 04/25/2016 Inactive Ambien 10 mg Tab RxNorm: 968248 1 Tablet(s) PO QHS No Start Date 05/11 Inactive Klor-Con 8 mEq Tab RxNorm: 388383 1 Tablet(s) PO QD when takes lasix No Start Date 03/06/2010 Inactive aspirin 81 mg tablet RxNorm: 932823 1 Tablet(s) PO QD No Start Date 0 01/29/2018 Inactive hydrocodone-acetaminophen 10 mg-325 mg Tab RxNorm: 0420828 1-2 T ablet(s) PO QID No Start Date 01/10/2012 Inactive Bystolic 10 mg tablet RxNorm: 463600 1 Tablet(s) PO QAM take one daily in the morning. No Start Date 05/28/2013 Inactive nystatin 100,000 unit/mL Oral Susp RxNorm: 222763 5 Milliliter( s) PO QID No Start Date 03/18/2012 Inactive swish and spit scopolamine 1.5 mg 72 hr Transderm Patch RxNorm: 619947 1 Unit Dose TD Q72H for motion sickness No Start Date 12/23/2013 Inactive Hydrocodone-Acetaminophen 10 mg-750 mg Tab RxNorm: 245847 1 Tablet(s) PO Q4H PRN No Start Date 01/12/2010 Inactive Soma 350 mg tablet RxNorm: 276333 1 Tablet(s) PO TID as needed for spasm No Start Date 01/12/2013 Inactive baclofen 10 mg tablet RxNorm: 355838 1 Tablet(s) PO TID as needed for muscle spasm No Start Date 09/18/2019 Inactive Soma 350 mg Tab RxNorm: 210145 1 Tablet(s) PO TID for spasm No Star t Date 01/31/2012 Inactive Co Q-10 400 mg capsule RxNorm: 989148 1 Capsule(s) PO QD No Start D ate 01/21/2019 Inactive nystatin 100,000 unit/gram topical cream RxNorm: 494819 Applica tion TOP BID No Start Date 03/22/2015 Inactive Exforge 5 mg-160 mg Tab RxNorm: 006564 1 Tablet(s) PO QD No Start D ate 10/09/2010 Inactive Hydrocodone-Acetaminophen 7.5 mg-650 mg Tab RxNorm: 981170 1 Ta blet(s) PO Q4H No Start Date 03/07/2010 Inactive Robaxin-750 750 mg Tab RxNorm: 970156 1-2 Tablet(s) PO TID prn spasm No Start Date 05/21/2011 Inactive amlodipine 5 mg tablet RxNorm: 082588 1 Tablet(s) PO QHS No Start D ate 09/29/2015 Inactive oxycodone-acetaminophen 10 mg-325 mg tablet RxNorm: 8176252 1-2 Tablet(s) PO Q6H No Start Date 06/16/2018 Inactive Triamterene-Hydrochlorothiazide 75 mg-50 mg Tab RxNorm: 3108 18 1 Tablet(s) PO QD No Start Date 02/08/2010 Inactive Alprazolam 0.5 mg Tab RxNorm: 581796 2 Tablet(s) PO QD prn No Start Date 03/07/2010 Inactive Bystolic 20 mg tablet RxNorm: 086209 1 Tablet(s) PO QAM No Start Da te 08/17/2015 Inactive ketorolac 10 mg tablet RxNorm: 094361 1 Tablet(s) PO QID prn he adache No Start Date 07/17/2012 Inactive acyclovir 800 mg Tab RxNorm: 730715 1 Tablet(s) PO BID No Start Date 03/18/2012 Inactive duloxetine 60 mg capsule,delayed release RxNorm: 736467 1 Capsu le(s) PO QD No Start Date 09/29/2015 Inactive Norvasc 5 mg tablet RxNorm: 907262 1 Tablet(s) PO QHS No Start Date 1 10/18/2014 Inactive promethazine 25 mg tablet RxNorm: 395627 1 Tablet(s) PO Q8H use sparingly No Start Date 07/22/2013 Inactive alprazolam 0.5 mg tablet RxNorm: 253307 3 Tablet(s) PO QHS No Start Date 06/06/2015 Inactive Lunesta 3 mg tablet RxNorm: 888210 1 Tablet(s) PO QHS No Start Date 0 09/20/2017 Inactive hydrocodone-acetaminophen 10 mg-325 mg Tab RxNorm: 8299593 1-2 Tablet(s) PO TID as needed for pain No Start Date 12/10/2011 Inactive Coricidin HBP Cough & Cold 4 mg-30 mg Tab RxNorm: 8067859 Tablet (s) PO PRN No Start Date 10/09/2010 Inactive Bactroban 2 % Ointment RxNorm: 403114 Application TOP QID to so res No Start Date 02/22/2012 Inactive Flonase 50 mcg/actuation Nasal [place] RxNorm: 975621 2 [place] AL QHS No Start Date 03/03/2014 Inactive Medication Administered No Medication Administered data Immunizations Vaccine Codes Date Status Tetanus, Diptheria, Pertussis CVX: 115 02/27/2014 Results Observation Observation Code Item Item Code Result Date S [facility] Location COMPREHENSIVE METABOLIC 79106 AST 15 U/L 2019 Unknown COMPREHENSIVE METABOLIC 77753 ALT 13 U/L 2019 Unknown COMPREHENSIVE METABOLIC 88196 BUN 12 mg/dL 2019 Unknown COMPREHENSIVE METABOLIC 02731 ALBUMIN 3.9 g/dL 2019 Unknown COMPREHENSIVE METABOLIC 82082 CHLORIDE 97 mmol/L 2019 Unknown COMPREHENSIVE METABOLIC 98000 Bili Total 0.4 mg/dL 09/29 Unknown COMPREHENSIVE METABOLIC 50774 ALK PHOS 130 U/L 2019 Unknown COMPREHENSIVE METABOLIC 39886 SODIUM 136 mmol/L 09/29 Unknown COMPREHENSIVE METABOLIC 98497 CREATININE 0.92 mg/dL 09/11 Unknown COMPREHENSIVE METABOLIC 21584 CALCIUM 9.1 mg/dL 2019 Unknown COMPREHENSIVE METABOLIC 94992 POTASSIUM 4.4 mmol/L 09/29 Unknown COMPREHENSIVE METABOLIC 99971 Total Protein 6.2 g/dL Unknown COMPREHENSIVE METABOLIC 68429 Glucose 391 mg/dL 2019 Unknown COMPREHENSIVE METABOLIC 62574 Bicarbonate 30 mmol/L 09/11 Unknown COMPREHENSIVE METABOLIC 55903 AGAP 9 mmol/L 2019 Unknown MEAN GLUC 0225929 Calc Mean Gluc 332 mg/dL 09/29/2019 Unkn own COMPLETE BLOOD COUNT [id number] WBC 7.0 10e9/L 09/29/19 Unknown COMPLETE BLOOD COUNT [id number] RBC 4.69 10e12/L 2019 Unknown COMPLETE BLOOD COUNT [id number] HEMOGLOBIN 14.6 g/dL 09/29/19 Unknown COMPLETE BLOOD COUNT [id number] HEMATOCRIT 45.2 % 09/29/19 Unknown COMPLETE BLOOD COUNT [id number] MCV 96.4 fL 0 Unknown COMPLETE BLOOD COUNT [id number] MCH 31.1 pg 0 Unknown COMPLETE BLOOD COUNT [id number] MCHC 32.3 g/dL 0 Unknown COMPLETE BLOOD COUNT [id number] PLATELET COUNT 209 10e9/L Unknown COMPLETE BLOOD COUNT 4357127 Mean Plt Volume 9.8 fL Unknown COMPLETE BLOOD COUNT [id number] Neut Auto 48.1 % 0 Unknown COMPLETE BLOOD COUNT [id number] Lymph Auto 36.5 % 09/29/19 Unknown COMPLETE BLOOD COUNT [id number] [place] Auto 8.6 % 0 Unknown COMPLETE BLOOD COUNT [id number] RDW 13.4 % 0 Unknown COMPLETE BLOOD COUNT 3954986 Eos Auto 6.5 % 0 Unknown COMPLETE BLOOD COUNT [id number] Baso Auto 0.3 % 0 Unknown COMPLETE BLOOD COUNT [id number] Neutrophil Abs 3.37 10e9/L Unknown COMPLETE BLOOD COUNT [id number] Lymphocyte Abs 2.56 10e9/L Unknown COMPLETE BLOOD COUNT [id number] Monocyte Abs 0.60 10e9/L 09/11 Unknown COMPLETE BLOOD COUNT [id number] Eosinophil Abs 0.46 10e9/L Unknown COMPLETE BLOOD COUNT [id number] RDW-SD 45.9 fL 0 Unknown COMPLETE BLOOD COUNT [id number] Basophil Abs 0.02 10e9/L 09/11 Unknown LIPID GROUP 88920 Cholesterol 248 mg/dL 09/29/2019 Unkno wn LIPID GROUP 49245 Triglyceride 898 mg/dL 09/29/2019 Unkn own LIPID GROUP 85344 HDL CHOLESTEROL 41 mg/dL 09/29/2019 U nknown LIPID GROUP 05424 Chol/HDL Ratio 6.05 ratio 09/29/2019 U nknown LIPID GROUP 64132 NON-HDL Chol 207 mg/dL 09/29/2019 Unkn own LIPID GROUP 02392 LDL Cholesterol N/A Trig >400 020 Unknown GLYCOSYLATED HEMOGLOBIN TEST 95129 Hgb A1c 80619-0 13.2 % 0 09/29/2019 Unknown FREE T4 06589 T4 Free 0.75 ng/dL 09/29/2019 Unknown GFR CALC 7209721 GFR Non Afr Amr >60 mL/min 09/29/2019 Un known GFR CALC 8175333 GFR Afr Amr >60 mL/min 09/29/2019 Unknow n THYROID STIMULATING HORMONE 45941 TSH 4.245 uIU/mL 09/29/2019 Unknown COMPLETE BLOOD COUNT [id number] WBC 10.7 10e9/L 018 Unknown COMPLETE BLOOD COUNT [id number] RBC 4.59 10e12/L 2017 Unknown COMPLETE BLOOD COUNT [id number] HEMOGLOBIN 14.8 g/dL 12/11/19 18 Unknown COMPLETE BLOOD COUNT 0844549 HEMATOCRIT 44.9 % 12/11/19 18 Unknown COMPLETE BLOOD COUNT [id number] MCV 97.8 fL 8 Unknown COMPLETE BLOOD COUNT 5497650 MCH 32.2 pg 8 Unknown COMPLETE BLOOD COUNT 1330060 MCHC 33.0 g/dL 8 Unknown COMPLETE BLOOD COUNT [id number] PLATELET COUNT 261 10e9/L 10/2017 Unknown COMPLETE BLOOD COUNT [id number] Mean Plt Volume 9.5 fL 10/2017 Unknown COMPLETE BLOOD COUNT 1073389 Neut Auto 59.9 % 8 Unknown COMPLETE BLOOD COUNT 7461633 Lymph Auto 27.4 % 12/11/19 18 Unknown COMPLETE BLOOD COUNT 3017006 [place] Auto 8.2 % 8 Unknown COMPLETE BLOOD COUNT 1072783 RDW 13.3 % 8 Unknown COMPLETE BLOOD COUNT 0970825 Eos Auto 4.1 % 8 Unknown COMPLETE BLOOD COUNT [id number] Baso Auto 0.4 % 8 Unknown COMPLETE BLOOD COUNT [id number] Neutrophil Abs 6.41 10e9/L Unknown COMPLETE BLOOD COUNT [id number] Lymphocyte Abs 2.93 10e9/L Unknown COMPLETE BLOOD COUNT [id number] Monocyte Abs 0.88 10e9/L 10/2017 Unknown COMPLETE BLOOD COUNT [id number] Eosinophil Abs 0.44 10e9/L Unknown COMPLETE BLOOD COUNT [id number] RDW-SD 46.2 fL 8 Unknown COMPLETE BLOOD COUNT [id number] Basophil Abs 0.04 10e9/L 10/2017 Unknown THYROID STIMULATING HORMONE 53859 TSH 4.015 uIU/mL 12/10/2017 Unknown COMPREHENSIVE METABOLIC 02982 AST 25 U/L 2017 Unknown COMPREHENSIVE METABOLIC 12835 ALT 17 U/L 2017 Unknown COMPREHENSIVE METABOLIC 47228 BUN 19 mg/dL 2017 Unknown COMPREHENSIVE METABOLIC 53042 ALBUMIN 4.0 g/dL 2017 Unknown COMPREHENSIVE METABOLIC 45199 CHLORIDE 91 mmol/L 2017 Unknown COMPREHENSIVE METABOLIC 03585 Bili Total 0.5 mg/dL 12/10 Unknown COMPREHENSIVE METABOLIC 48044 ALK PHOS 75 U/L 2017 Unknown COMPREHENSIVE METABOLIC 83175 SODIUM 136 mmol/L 12/10 Unknown COMPREHENSIVE METABOLIC 61211 CREATININE 1.05 mg/dL 10/2017 Unknown COMPREHENSIVE METABOLIC 40484 CALCIUM 8.9 mg/dL 2017 Unknown COMPREHENSIVE METABOLIC 65921 POTASSIUM 3.4 mmol/L 12/10 Unknown COMPREHENSIVE METABOLIC 21641 Total Protein 6.5 g/dL Unknown COMPREHENSIVE METABOLIC 30673 Glucose 138 mg/dL 2017 Unknown COMPREHENSIVE METABOLIC 48911 Bicarbonate 35 mmol/L 10/2017 Unknown COMPREHENSIVE METABOLIC 00664 AGAP 10 mmol/L 2017 Unknown MEAN GLUC 1074988 Calc Mean Gluc 171 mg/dL 12/10/2017 Unkn own LIPID GROUP 47128 Cholesterol 204 mg/dL 12/10/2017 Unkno wn LIPID GROUP 48719 Triglyceride 411 mg/dL 12/10/2017 Unkn own LIPID GROUP 15889 HDL CHOLESTEROL 50 mg/dL 12/10/2017 U nknown LIPID GROUP 15325 Chol/HDL Ratio 4.08 ratio 12/10/2017 U nknown LIPID GROUP 85399 NON-HDL Chol 154 mg/dL 12/10/2017 Unkn own LIPID GROUP 61209 LDL Cholesterol N/A Trig >400 018 Unknown GLYCOSYLATED HEMOGLOBIN TEST 38822 Hgb A1c 91638-5 7.6 % 0 12/10/2017 Unknown FREE T4 57466 T4 Free 1.40 ng/dL 12/10/2017 Unknown GFR CALC 9083110 GFR Non Afr Amr 55 mL/min 12/10/2017 Unk nown GFR CALC 0086375 GFR Afr Amr >60 mL/min 12/10/2017 Unknow n GFR CALC 3689462 GFR Non Afr Amr 48 mL/min 06/28/2017 Unk nown GFR CALC 6190003 GFR Afr Amr 59 mL/min 06/28/2017 Unknown COMPREHENSIVE METABOLIC 54489 AST 32 U/L 2016 Unknown COMPREHENSIVE METABOLIC 57750 ALT 22 U/L 2016 Unknown COMPREHENSIVE METABOLIC 53289 BUN 23 mg/dL 2016 Unknown COMPREHENSIVE METABOLIC 64939 ALBUMIN 4.7 g/dL 2016 Unknown COMPREHENSIVE METABOLIC 61662 CHLORIDE 89 mmol/L 2016 Unknown COMPREHENSIVE METABOLIC 96292 Bili Total 0.5 mg/dL 06/28 Unknown COMPREHENSIVE METABOLIC 60967 ALK PHOS 90 U/L 2016 Unknown COMPREHENSIVE METABOLIC 02343 SODIUM 135 mmol/L 06/28 Unknown COMPREHENSIVE METABOLIC 56803 CREATININE 1.18 mg/dL 06/10 Unknown COMPREHENSIVE METABOLIC 74319 CALCIUM 9.7 mg/dL 2016 Unknown COMPREHENSIVE METABOLIC 32382 POTASSIUM 3.5 mmol/L 06/28 Unknown COMPREHENSIVE METABOLIC 44186 Total Protein 7.7 g/dL Unknown COMPREHENSIVE METABOLIC 77757 Glucose 129 mg/dL 2016 Unknown COMPREHENSIVE METABOLIC 83030 Bicarbonate 34 mmol/L 06/10 Unknown COMPREHENSIVE METABOLIC 68371 AGAP 12 mmol/L 2016 Unknown LIPID GROUP 74911 HDL TEST 64 MG/DL 08/27/2014 Unknown LIPID GROUP 74621 TRIG 222 MG/DL 08/27/2014 Unknown LIPID GROUP 31709 TEST LDL 209 MG/DL 08/27/2014 Unknown LIPID GROUP 62058 CHOL 317 MG/DL 08/27/2014 Unknown LIPID GROUP 59182 RCHOL/HDL 4.95 RATIO 08/27/2014 Unknow n LIPID GROUP 76316 NON-HDL CH 253 MG/DL 08/27/2014 Unknow n GFR CALC 4593457 GFR AA >60 ML/MIN 08/27/2014 Unknown GFR CALC 2888384 GFR NON-AA >60 ML/MIN 08/27/2014 Unknown COMPLETE BLOOD COUNT 2448383 WBC 7.0 10e9/L 08/27/20 14 Unknown COMPLETE BLOOD COUNT 3664888 RBC 4.98 10e12/L 2013 Unknown COMPLETE BLOOD COUNT 3504182 HGB 15.6 g/dL 4 Unknown COMPLETE BLOOD COUNT 9681464 HCT DET 46.5 % 4 Unknown COMPLETE BLOOD COUNT 8808662 MCV 93.4 fL 4 Unknown COMPLETE BLOOD COUNT 8638140 MCH 31.3 pg 4 Unknown COMPLETE BLOOD COUNT 2812806 MCHC 33.5 g/dL 4 Unknown COMPLETE BLOOD COUNT 4667875 PLT 309 10e9/L 08/27/20 14 Unknown COMPLETE BLOOD COUNT 6713863 MPV 9.6 fL 4 Unknown COMPLETE BLOOD COUNT 3591371 CADEN % 57.2 % 4 Unknown COMPLETE BLOOD COUNT 1349333 LY % 33.2 % 4 Unknown COMPLETE BLOOD COUNT 0638805 MON % 7.3 % 4 Unknown COMPLETE BLOOD COUNT 7268699 EOS % 2.0 % 4 Unknown COMPLETE BLOOD COUNT 5623819 BASO % 0.3 % 4 Unknown COMPLETE BLOOD COUNT 2216850 RDW 13.7 % 4 Unknown COMPLETE BLOOD COUNT [id number] ABS CADEN 4.00 10e9/L 014 Unknown COMPLETE BLOOD COUNT [id number] ABS LYMPH 2.32 10e9/L 014 Unknown COMPLETE BLOOD COUNT [id number] ABS MONO 0.51 10e9/L 014 Unknown COMPLETE BLOOD COUNT [id number] ABS EOS 0.14 10e9/L 014 Unknown COMPLETE BLOOD COUNT [id number] ABS BASO 0.02 10e9/L 014 Unknown COMPLETE BLOOD COUNT 7361001 RDW-SD 45.1 fL 4 Unknown COMPREHENSIVE METABOLIC 56708 AST 13 U/L 2013 Unknown COMPREHENSIVE METABOLIC 31347 ALT 11 IU/L 2013 Unknown COMPREHENSIVE METABOLIC 30785 BUN 23 MG/DL 2013 Unknown COMPREHENSIVE METABOLIC 18126 ALBUMIN 4.4 GM/DL 2013 Unknown COMPREHENSIVE METABOLIC 62020 CHLORIDE 99 MMOL/L 2013 Unknown COMPREHENSIVE METABOLIC 80881 BILI TOT 0.5 MG/DL 2013 Unknown COMPREHENSIVE METABOLIC 66559 ALK PHOS 56 U/L 2013 Unknown COMPREHENSIVE METABOLIC 66965 SODIUM 138 MMOL/L 08/27 Unknown COMPREHENSIVE METABOLIC 41324 CREATININE 0.95 MG/DL 08/10 Unknown COMPREHENSIVE METABOLIC 84817 CALCIUM 9.8 MG/DL 2013 Unknown COMPREHENSIVE METABOLIC 02431 POTASSIUM 3.5 MMOL/L 08/27 Unknown COMPREHENSIVE METABOLIC 10706 PROT TOT 6.8 GM/DL 2013 Unknown COMPREHENSIVE METABOLIC 71341 Glucose 90 MG/DL 2013 Unknown COMPREHENSIVE METABOLIC 73137 BICARB 34 MMOL/L 2013 Unknown COMPREHENSIVE METABOLIC 15131 ANION GAP 5 MEQ/L 2013 Unknown LIPASE 62493 LIPASE 11 IU/L 07/21/2014 Unknown AMYLASE 62372 AMYLASE 39 IU/L 07/21/2014 Unknown HEMOGLOBIN A1C (GLYCOSYLATED) 4084440 A1C [facility] 79673-6 6.2 % 03/05/2013 Unknown THYROID STIMULATING HORMONE 20086 TSH 6.986 uIU/ML 03/05/2013 Unknown COMPLETE BLOOD COUNT [id number] WBC 12.7 10e9/L 013 Unknown COMPLETE BLOOD COUNT [id number] RBC 4.53 10e12/L 2012 Unknown COMPLETE BLOOD COUNT 9426466 HGB 14.7 g/dL 3 Unknown COMPLETE BLOOD COUNT 6185181 HCT DET 43.1 % 3 Unknown COMPLETE BLOOD COUNT 3471973 MCV 95.1 fL 3 Unknown COMPLETE BLOOD COUNT 0890999 MCH 32.5 pg 3 Unknown COMPLETE BLOOD COUNT 5486368 MCHC 34.1 g/dL 3 Unknown COMPLETE BLOOD COUNT 2791570 PLT 346 10e9/L 03/05/20 13 Unknown COMPLETE BLOOD COUNT 5060895 MPV 9.5 fL 3 Unknown COMPLETE BLOOD COUNT 5195802 CADEN % 67.6 % 3 Unknown COMPLETE BLOOD COUNT 7991660 LY % 22.1 % 3 Unknown COMPLETE BLOOD COUNT 8479538 MON % 6.6 % 3 Unknown COMPLETE BLOOD COUNT 6786172 EOS % 3.3 % 3 Unknown COMPLETE BLOOD COUNT 2518364 BASO % 0.4 % 3 Unknown COMPLETE BLOOD COUNT 2454381 RDW 14.0 % 3 Unknown COMPLETE BLOOD COUNT 2350044 ABS CADEN 8.59 10e9/L 013 Unknown COMPLETE BLOOD COUNT [id number] ABS LYMPH 2.81 10e9/L 013 Unknown COMPLETE BLOOD COUNT [id number] ABS MONO 0.84 10e9/L 013 Unknown COMPLETE BLOOD COUNT [id number] ABS EOS 0.42 10e9/L 013 Unknown COMPLETE BLOOD COUNT 1236668 ABS BASO 0.05 10e9/L 013 Unknown COMPLETE BLOOD COUNT 7628240 RDW-SD 46.0 fL 3 Unknown FREE T4 42313 FREE T4 1.14 NG/DL 03/05/2013 Unknown COMPREHENSIVE METABOLIC 93517 AST 17 U/L 2012 Unknown COMPREHENSIVE METABOLIC 47525 ALT 12 IU/L 2012 Unknown COMPREHENSIVE METABOLIC 83438 BUN 24 MG/DL 2012 Unknown COMPREHENSIVE METABOLIC 78031 ALBUMIN 4.2 GM/DL 2012 Unknown COMPREHENSIVE METABOLIC 37777 CHLORIDE 93 MMOL/L 2012 Unknown COMPREHENSIVE METABOLIC 93735 BILI TOT 0.5 MG/DL 2012 Unknown COMPREHENSIVE METABOLIC 03018 ALK PHOS 75 U/L 2012 Unknown COMPREHENSIVE METABOLIC 05608 SODIUM 141 MMOL/L 03/05 Unknown COMPREHENSIVE METABOLIC 91772 CREATININE 1.36 MG/DL 02/09 Unknown COMPREHENSIVE METABOLIC 43114 CALCIUM 9.2 MG/DL 2012 Unknown COMPREHENSIVE METABOLIC 35270 POTASSIUM 3.1 MMOL/L 03/05 Unknown COMPREHENSIVE METABOLIC 17806 PROT TOT 6.9 GM/DL 2012 Unknown COMPREHENSIVE METABOLIC 00740 Glucose 123 MG/DL 2012 Unknown COMPREHENSIVE METABOLIC 35692 BICARB 36 MMOL/L 2012 Unknown COMPREHENSIVE METABOLIC 18205 ANION GAP 12 MEQ/L 2012 Unknown GFR CALC 9318720 GFR AA 51.0L ML/MIN 03/05/2013 Unknow n GFR CALC 1594917 GFR NON-AA 42.0L ML/MIN 03/05/2013 Unkno wn COMPREHENSIVE METABOLIC 10237 AST 14 U/L 2012 Unknown COMPREHENSIVE METABOLIC 03986 ALT 11 IU/L 2012 Unknown COMPREHENSIVE METABOLIC 99133 BUN 16 MG/DL 2012 Unknown COMPREHENSIVE METABOLIC 29887 ALBUMIN 4.2 GM/DL 2012 Unknown COMPREHENSIVE METABOLIC 85925 CHLORIDE 98 MMOL/L 2012 Unknown COMPREHENSIVE METABOLIC 05949 BILI TOT 0.4 MG/DL 2012 Unknown COMPREHENSIVE METABOLIC 75602 ALK PHOS 77 U/L 2012 Unknown COMPREHENSIVE METABOLIC 18873 SODIUM 139 MMOL/L 09/25 Unknown COMPREHENSIVE METABOLIC 66394 CREATININE 0.86 MG/DL 09/10 Unknown COMPREHENSIVE METABOLIC 79985 CALCIUM 9.5 MG/DL 2012 Unknown COMPREHENSIVE METABOLIC 83289 POTASSIUM 3.8 MMOL/L 09/25 Unknown COMPREHENSIVE METABOLIC 14372 PROT TOT 6.8 GM/DL 2012 Unknown COMPREHENSIVE METABOLIC 11930 Glucose 91 MG/DL 2012 Unknown COMPREHENSIVE METABOLIC 30201 BICARB 32 MMOL/L 2012 Unknown COMPREHENSIVE METABOLIC 80782 ANION GAP 9 MEQ/L 2012 Unknown FREE T4 29883 FREE T4 0.98 NG/DL 09/25/2012 Unknown THYROID STIMULATING HORMONE 94492 TSH 1.736 uIU/ML 09/25/2012 Unknown C-REACTIVE PROTEIN (CRP) QUANT 60754 CRP 2.3 MG/DL 09/25/2012 Unknown COMPLETE BLOOD COUNT [id number] WBC 11.9 10e9/L 013 Unknown COMPLETE BLOOD COUNT 3155254 RBC 4.87 10e12/L 2012 Unknown COMPLETE BLOOD COUNT 3092553 HGB 15.1 g/dL 3 Unknown COMPLETE BLOOD COUNT 6043028 HCT DET 44.8 % 3 Unknown COMPLETE BLOOD COUNT 7034513 MCV 92.0 fL 3 Unknown COMPLETE BLOOD COUNT 9295645 MCH 31.0 pg 3 Unknown COMPLETE BLOOD COUNT 3053887 MCHC 33.7 g/dL 3 Unknown COMPLETE BLOOD COUNT 3773989 PLT 343 10e9/L 09/25/19 13 Unknown COMPLETE BLOOD COUNT 9161143 MPV 9.0 fL 3 Unknown COMPLETE BLOOD COUNT 2635414 CADEN % 68.2 % 3 Unknown COMPLETE BLOOD COUNT 3408609 LY % 22.4 % 3 Unknown COMPLETE BLOOD COUNT 9544219 MON % 6.4 % 3 Unknown COMPLETE BLOOD COUNT [id number] EOS % 2.7 % 3 Unknown COMPLETE BLOOD COUNT [id number] BASO % 0.3 % 3 Unknown COMPLETE BLOOD COUNT 1850536 RDW 13.8 % 3 Unknown COMPLETE BLOOD COUNT 5670410 ABS CADEN 8.12 10e9/L 013 Unknown COMPLETE BLOOD COUNT 7683951 ABS LYMPH 2.67 10e9/L 013 Unknown COMPLETE BLOOD COUNT [id number] ABS MONO 0.76 10e9/L 013 Unknown COMPLETE BLOOD COUNT [id number] ABS EOS 0.32 10e9/L 013 Unknown COMPLETE BLOOD COUNT [id number] ABS BASO 0.04 10e9/L 013 Unknown COMPLETE BLOOD COUNT 3037412 RDW-SD 45.6 fL 3 Unknown GFR CALC 0184796 GFR AA >60 ML/MIN 09/25/2012 Unknown GFR CALC 4537550 GFR NON-AA >60 ML/MIN 09/25/2012 Unknown ERYTHROCYTE SEDIMENTATION RATE 16906 ESR 19 MM/HR 05/06/2012 Unknown VITAMIN B 12 FOLIC ACID 97294|81921 VIT B 12 922 PG/ML 04/11 Unknown VITAMIN B 12 FOLIC ACID 72092|82106 FOLIC ACID 13.6 NG/ML Unknown URIC ACID 01791 URIC ACID 7.8 MG/DL 05/06/2012 Unknown COMPLETE BLOOD COUNT 08349 WBC 11.9 10e9/L 012 Unknown COMPLETE BLOOD COUNT 43783 RBC 5.30 10e12/L 2011 Unknown COMPLETE BLOOD COUNT 55779 HGB 16.6 g/dL 2 Unknown COMPLETE BLOOD COUNT 53812 HCT DET 47.2 % 2 Unknown COMPLETE BLOOD COUNT 14546 MCV 89.1 fL 2 Unknown COMPLETE BLOOD COUNT 89905 MCH 31.3 pg 2 Unknown COMPLETE BLOOD COUNT 05780 MCHC 35.2 g/dL 2 Unknown COMPLETE BLOOD COUNT 23588 PLT 362 10e9/L 05/06/20 12 Unknown COMPLETE BLOOD COUNT 95976 MPV 9.4 fL 2 Unknown COMPLETE BLOOD COUNT 17202 CADEN % 68.2 % 2 Unknown COMPLETE BLOOD COUNT 46646 LY % 22.0 % 2 Unknown COMPLETE BLOOD COUNT 48820 MON % 6.9 % 2 Unknown COMPLETE BLOOD COUNT 41580 EOS % 2.6 % 2 Unknown COMPLETE BLOOD COUNT 81505 BASO % 0.3 % 2 Unknown COMPLETE BLOOD COUNT 39775 RDW 12.8 % 2 Unknown COMPLETE BLOOD COUNT 07946 ABS CADEN 8.12 10e9/L 012 Unknown COMPLETE BLOOD COUNT 35838 ABS LYMPH 2.62 10e9/L 012 Unknown COMPLETE BLOOD COUNT 98332 ABS MONO 0.82 10e9/L 012 Unknown COMPLETE BLOOD COUNT 61601 ABS EOS 0.31 10e9/L 012 Unknown COMPLETE BLOOD COUNT 76256 ABS BASO 0.04 10e9/L 012 Unknown COMPLETE BLOOD COUNT 82620 RDW-SD 41.5 fL 2 Unknown GFR CALC [id number] GFR AA >60 ML/MIN 05/06/2012 Unknown GFR CALC [id number] GFR NON-AA 58.0L ML/MIN 05/06/2012 Unkno wn FREE T4 01688 FREE T4 1.15 NG/DL 05/06/2012 Unknown THYROID STIMULATING HORMONE 81951 TSH 1.568 uIU/ML 05/06/2012 Unknown COMPREHENSIVE METABOLIC 94216 AST 20 U/L 2011 Unknown COMPREHENSIVE METABOLIC 59660 ALT 12 IU/L 2011 Unknown COMPREHENSIVE METABOLIC 54206 BUN 20 MG/DL 2011 Unknown COMPREHENSIVE METABOLIC 93327 ALBUMIN 4.5 GM/DL 2011 Unknown COMPREHENSIVE METABOLIC 93557 CHLORIDE 91 MMOL/L 2011 Unknown COMPREHENSIVE METABOLIC 13360 BILI TOT 0.4 MG/DL 2011 Unknown COMPREHENSIVE METABOLIC 88879 ALK PHOS 73 U/L 2011 Unknown COMPREHENSIVE METABOLIC 70617 SODIUM 139 MMOL/L 05/06 Unknown COMPREHENSIVE METABOLIC 20772 CREATININE 1.02 MG/DL 04/11 Unknown COMPREHENSIVE METABOLIC 73174 CALCIUM 9.7 MG/DL 2011 Unknown COMPREHENSIVE METABOLIC 03578 POTASSIUM 3.1 MMOL/L 05/06 Unknown COMPREHENSIVE METABOLIC 12656 PROT TOT 7.3 GM/DL 2011 Unknown COMPREHENSIVE METABOLIC 83232 Glucose 118 MG/DL 2011 Unknown COMPREHENSIVE METABOLIC 46616 BICARB 33 MMOL/L 2011 Unknown COMPREHENSIVE METABOLIC 29598 ANION GAP 15 MEQ/L 2011 Unknown Procedures Procedure Codes Date ROUTINE VENIPUNCTURE CPT-4: 19032 09/29/2019 URINALYSIS NONAUTO W/O SCOPE CPT-4: 81769 09/29/2019 COMPREHEN METABOLIC PANEL CPT-4: 21508 09/29/2019 LIPID PANEL CPT-4: 17738 09/29/2019 A1C HPLC CPT-4: 83734 09/29/2019 ASSAY OF FREE THYROXINE CPT-4: 86141 09/29/2019 ASSAY THYROID STIM HORMONE CPT-4: 14376 09/29/2019 COMPLETE CBC W/AUTO DIFF WBC CPT-4: 44987 09/29/2019 URINALYSIS NONAUTO W/O SCOPE CPT-4: 50420 09/30/2018 MICROALBUMIN QUANTITATIVE CPT-4: 14863 09/30/2018 CEFTRIAXONE SODIUM INJECTION CPT-4: J0696 06/19/2018 THER/PROPH/DIAG INJ SC/IM CPT-4: 99500 06/19/2018 CEFTRIAXONE SODIUM INJECTION CPT-4: J0696 06/17/2018 THER/PROPH/DIAG INJ SC/IM CPT-4: 08048 06/17/2018 THER/PROPH/DIAG INJ SC/IM CPT-4: 56361 05/16/2018 KETOROLAC TROMETHAMINE INJ CPT-4: J1885 05/16/2018 ONDANSETRON HCL INJECTION CPT-4: J2405 05/16/2018 THER/PROPH/DIAG INJ SC/IM CPT-4: 64172 05/16/2018 ROUTINE VENIPUNCTURE CPT-4: 98744 03/20/2018 COMPREHEN METABOLIC PANEL CPT-4: 57480 03/20/2018 DEXAMETHASONE SODIUM PHOS CPT-4: J1100 02/11/2018 THER/PROPH/DIAG INJ SC/IM CPT-4: 90482 02/11/2018 TRIAMCINOLONE ACET INJ NOS CPT-4: J3301 02/11/2018 CEFTRIAXONE SODIUM INJECTION CPT-4: J0696 02/01/2018 THER/PROPH/DIAG INJ SC/IM CPT-4: 01915 02/01/2018 CEFTRIAXONE SODIUM INJECTION CPT-4: J0696 01/30/2018 THER/PROPH/DIAG INJ SC/IM CPT-4: 18924 01/30/2018 ROUTINE VENIPUNCTURE CPT-4: 10939 12/10/2017 ASSAY OF FREE THYROXINE CPT-4: 24734 12/10/2017 ASSAY THYROID STIM HORMONE CPT-4: 46642 12/10/2017 COMPREHEN METABOLIC PANEL CPT-4: 40346 12/10/2017 COMPLETE CBC W/AUTO DIFF WBC CPT-4: 99765 12/10/2017 LIPID PANEL CPT-4: 28136 12/10/2017 A1C HPLC CPT-4: 61039 12/10/2017 CEFTRIAXONE SODIUM INJECTION CPT-4: J0696 12/10/2017 THER/PROPH/DIAG INJ SC/IM CPT-4: 03340 12/10/2017 CEFTRIAXONE SODIUM INJECTION CPT-4: J0696 12/07/2017 THER/PROPH/DIAG INJ SC/IM CPT-4: 38271 12/07/2017 DEXAMETHASONE SODIUM PHOS CPT-4: J1100 12/07/2017 THER/PROPH/DIAG INJ SC/IM CPT-4: 72534 12/07/2017 CEFTRIAXONE SODIUM INJECTION CPT-4: J0696 10/08/2017 THER/PROPH/DIAG INJ SC/IM CPT-4: 08398 10/08/2017 CEFTRIAXONE SODIUM INJECTION CPT-4: J0696 09/21/2017 THER/PROPH/DIAG INJ SC/IM CPT-4: 29294 09/21/2017 CEFTRIAXONE SODIUM INJECTION CPT-4: J0696 09/20/2017 THER/PROPH/DIAG INJ SC/IM CPT-4: 76406 09/20/2017 REMOVAL OF NAIL PLATE CPT-4: 97168 08/29/2017 THER/PROPH/DIAG INJ SC/IM CPT-4: 00802 08/29/2017 TRIAMCINOLONE ACET INJ NOS CPT-4: J3301 08/29/2017 CEFTRIAXONE SODIUM INJECTION CPT-4: J0696 08/29/2017 THER/PROPH/DIAG INJ SC/IM CPT-4: 39309 08/29/2017 DESTRUCT PREMALG LESION (Cryosurgery) CPT-4: 53044 ROUTINE VENIPUNCTURE CPT-4: 04076 06/27/2017 ASSAY OF FREE THYROXINE CPT-4: 44026 06/27/2017 ASSAY THYROID STIM HORMONE CPT-4: 59810 06/27/2017 COMPREHEN METABOLIC PANEL CPT-4: 36806 06/27/2017 COMPLETE CBC W/AUTO DIFF WBC CPT-4: 64205 06/27/2017 EXC TR-EXT B9+REECE 0.5 CM< CPT-4: 87790 01/24/2017 THER/PROPH/DIAG INJ SC/IM CPT-4: 58005 08/02/2016 DEXAMETHASONE SODIUM PHOS CPT-4: J1100 08/02/2016 DESTRUCT PREMALG LESION (Cryosurgery) CPT-4: 86337 EXC TR-EXT B9+REECE 0.5 CM< CPT-4: 54722 08/01/2016 AEROBIC WOUND CULTURE & STN CPT-4: 75020 07/06/2016 CEFTRIAXONE SODIUM INJECTION CPT-4: J0696 05/25/2016 THER/PROPH/DIAG INJ SC/IM CPT-4: 31740 05/25/2016 THER/PROPH/DIAG INJ SC/IM CPT-4: 31263 04/26/2016 DEXAMETHASONE SODIUM PHOS CPT-4: J1100 04/26/2016 CEFTRIAXONE SODIUM INJECTION CPT-4: J0696 04/26/2016 THER/PROPH/DIAG INJ SC/IM CPT-4: 10403 04/26/2016 THER/PROPH/DIAG INJ SC/IM CPT-4: 26928 02/09/2016 TRIAMCINOLONE ACET INJ NOS CPT-4: J3301 02/09/2016 URINALYSIS NONAUTO W/O SCOPE CPT-4: 20985 01/24/2016 URINE CULTURE/ COLONY COUNT CPT-4: 89636 01/24/2016 THER/PROPH/DIAG INJ SC/IM CPT-4: 23788 12/08/2015 TRIAMCINOLONE ACET INJ NOS CPT-4: J3301 12/08/2015 THER/PROPH/DIAG INJ SC/IM CPT-4: 24812 10/07/2015 TRIAMCINOLONE ACET INJ NOS CPT-4: J3301 10/07/2015 DESTRUCT PREMALG LESION (Cryosurgery) CPT-4: 13531 THER/PROPH/DIAG INJ SC/IM CPT-4: 94919 03/16/2015 METHYLPREDNISOLONE 40 MG INJ CPT-4: J1030 03/16/2015 DESTRUCT PREMALG LESION (Cryosurgery) CPT-4: 36887 THER/PROPH/DIAG INJ SC/IM CPT-4: 03177 09/11/2014 METHYLPREDNISOLONE 40 MG INJ CPT-4: J1030 09/11/2014 TRIAMCINOLONE ACET INJ NOS CPT-4: J3301 09/11/2014 CEFTRIAXONE SODIUM INJECTION CPT-4: J0696 09/11/2014 THER/PROPH/DIAG INJ SC/IM CPT-4: 31621 09/11/2014 ROUTINE VENIPUNCTURE CPT-4: 67524 08/27/2014 COMPREHEN METABOLIC PANEL CPT-4: 87101 08/27/2014 COMPLETE CBC W/AUTO DIFF WBC CPT-4: 39341 08/27/2014 LIPID PANEL CPT-4: 98425 08/27/2014 ROUTINE VENIPUNCTURE CPT-4: 91229 07/21/2014 ASSAY OF AMYLASE CPT-4: 87565 07/21/2014 ASSAY OF LIPASE CPT-4: 16435 07/21/2014 THER/PROPH/DIAG INJ SC/IM CPT-4: 11488 07/15/2014 TRIAMCINOLONE ACET INJ NOS CPT-4: J3301 07/15/2014 ROUTINE VENIPUNCTURE CPT-4: 31503 05/14/2014 ASSAY OF FREE THYROXINE CPT-4: 86583 05/14/2014 ASSAY THYROID STIM HORMONE CPT-4: 84143 05/14/2014 COMPREHEN METABOLIC PANEL CPT-4: 07574 05/14/2014 COMPLETE CBC W/AUTO DIFF WBC CPT-4: 82697 05/14/2014 LIPID PANEL CPT-4: 78150 05/14/2014 CEFTRIAXONE SODIUM INJECTION CPT-4: J0696 04/21/2014 THER/PROPH/DIAG INJ SC/IM CPT-4: 51862 04/21/2014 THER/PROPH/DIAG INJ SC/IM CPT-4: 99195 04/21/2014 TRIAMCINOLONE ACET INJ NOS CPT-4: J3301 04/21/2014 THER/PROPH/DIAG INJ SC/IM CPT-4: 57258 03/04/2014 METHYLPREDNISOLONE 40 MG INJ CPT-4: J1030 03/04/2014 TRIAMCINOLONE ACET INJ NOS CPT-4: J3301 03/04/2014 CEFTRIAXONE SODIUM INJECTION CPT-4: J0696 03/04/2014 THER/PROPH/DIAG INJ SC/IM CPT-4: 09950 03/04/2014 TDAP VACCINE 7 YRS/> IM CPT-4: 75435 02/27/2014 IMMUNIZATION ADMIN CPT-4: 15771 02/27/2014 DESTRUCT PREMALG LESION (Cryosurgery) CPT-4: 62268 DESTRUCT PREMALG LES 2-14 CPT-4: 21642 01/13/2014 THER/PROPH/DIAG INJ SC/IM CPT-4: 89578 10/21/2013 METHYLPREDNISOLONE 40 MG INJ CPT-4: J1030 10/21/2013 TRIAMCINOLONE ACET INJ NOS CPT-4: J3301 10/21/2013 CEFTRIAXONE SODIUM INJECTION CPT-4: J0696 08/27/2013 THER/PROPH/DIAG INJ SC/IM CPT-4: 78314 08/27/2013 THER/PROPH/DIAG INJ SC/IM CPT-4: 99734 08/27/2013 METHYLPREDNISOLONE 40 MG INJ CPT-4: J1030 08/27/2013 TRIAMCINOLONE ACET INJ NOS CPT-4: J3301 08/27/2013 THER/PROPH/DIAG INJ SC/IM CPT-4: 48223 06/23/2013 METHYLPREDNISOLONE 40 MG INJ CPT-4: J1030 06/23/2013 TRIAMCINOLONE ACET INJ NOS CPT-4: J3301 06/23/2013 THER/PROPH/DIAG INJ SC/IM CPT-4: 53528 05/26/2013 METHYLPREDNISOLONE 40 MG INJ CPT-4: J1030 05/26/2013 TRIAMCINOLONE ACET INJ NOS CPT-4: J3301 05/26/2013 ROUTINE VENIPUNCTURE CPT-4: 16485 03/05/2013 ASSAY OF FREE THYROXINE CPT-4: 33503 03/05/2013 ASSAY THYROID STIM HORMONE CPT-4: 43763 03/05/2013 COMPREHEN METABOLIC PANEL CPT-4: 15351 03/05/2013 COMPLETE CBC W/AUTO DIFF WBC CPT-4: 28623 03/05/2013 A1C GLYCOSYLATED HEMOGLOBIN TEST CPT-4: 55721 013 DRAIN/INJECT JOINT/BURSA CPT-4: 76722 12/04/2012 METHYLPREDNISOLONE 40 MG INJ CPT-4: J1030 12/04/2012 TRIAMCINOLONE ACET INJ NOS CPT-4: J3301 12/04/2012 CEFTRIAXONE SODIUM INJECTION CPT-4: J0696 11/21/2012 THER/PROPH/DIAG INJ SC/IM CPT-4: 32876 11/21/2012 THER/PROPH/DIAG INJ SC/IM CPT-4: 92690 10/14/2012 METHYLPREDNISOLONE 40 MG INJ CPT-4: J1030 10/14/2012 TRIAMCINOLONE ACET INJ NOS CPT-4: J3301 10/14/2012 URINALYSIS NONAUTO W/O SCOPE CPT-4: 56136 09/27/2012 ROUTINE VENIPUNCTURE CPT-4: 86974 09/25/2012 ASSAY OF FREE THYROXINE CPT-4: 55087 09/25/2012 ASSAY THYROID STIM HORMONE CPT-4: 74473 09/25/2012 COMPREHEN METABOLIC PANEL CPT-4: 08398 09/25/2012 COMPLETE CBC W/AUTO DIFF WBC CPT-4: 17527 09/25/2012 C-REACTIVE PROTEIN CPT-4: 84396 09/25/2012 THER/PROPH/DIAG INJ SC/IM CPT-4: 62632 08/29/2012 METHYLPREDNISOLONE 40 MG INJ CPT-4: J1030 08/29/2012 TRIAMCINOLONE ACET INJ NOS CPT-4: J3301 08/29/2012 DESTRUCT PREMALG LESION (Cryosurgery) CPT-4: 74752 THER/PROPH/DIAG INJ SC/IM CPT-4: 17468 05/06/2012 METHYLPREDNISOLONE 40 MG INJ CPT-4: J1030 05/06/2012 TRIAMCINOLONE ACET INJ NOS CPT-4: J3301 05/06/2012 VITAMIN B 12 FOLIC ACID CPT-4: 47355|10218 05/06/2012 RBC SED RATE AUTOMATED CPT-4: 50870 05/06/2012 ROUTINE VENIPUNCTURE CPT-4: 79384 05/06/2012 ASSAY OF FREE THYROXINE CPT-4: 92634 05/06/2012 ASSAY THYROID STIM HORMONE CPT-4: 41107 05/06/2012 COMPREHEN METABOLIC PANEL CPT-4: 27277 05/06/2012 COMPLETE CBC W/AUTO DIFF WBC CPT-4: 83033 05/06/2012 ASSAY OF BLOOD/URIC ACID CPT-4: 37616 05/06/2012 THER/PROPH/DIAG INJ SC/IM CPT-4: 47522 03/19/2012 KETOROLAC TROMETHAMINE INJ CPT-4: J1885 03/19/2012 KETOROLAC TROMETHAMINE INJ CPT-4: J1885 01/30/2012 THER/PROPH/DIAG INJ SC/IM CPT-4: 47428 01/30/2012 PROMETHAZINE HCL INJECTION CPT-4: J2550 01/30/2012 THER/PROPH/DIAG INJ SC/IM CPT-4: 95468 01/24/2012 METHYLPREDNISOLONE 40 MG INJ CPT-4: J1030 01/24/2012 TRIAMCINOLONE ACET INJ NOS CPT-4: J3301 01/24/2012 THER/PROPH/DIAG INJ SC/IM CPT-4: 73441 09/13/2011 KETOROLAC TROMETHAMINE INJ CPT-4: J1885 09/13/2011 THER/PROPH/DIAG INJ SC/IM CPT-4: 21194 09/13/2011 PROMETHAZINE HCL INJECTION CPT-4: J2550 09/13/2011 CEFTRIAXONE SODIUM INJECTION CPT-4: J0696 07/20/2011 THER/PROPH/DIAG INJ SC/IM CPT-4: 18912 07/20/2011 THER/PROPH/DIAG INJ SC/IM CPT-4: 65376 07/20/2011 METHYLPREDNISOLONE INJECTION CPT-4: J2930 07/20/2011 URINALYSIS NONAUTO W/O SCOPE CPT-4: 58674 05/09/2011 CEFTRIAXONE SODIUM INJECTION CPT-4: J0696 05/09/2011 THER/PROPH/DIAG INJ SC/IM CPT-4: 09165 05/09/2011 THER/PROPH/DIAG INJ SC/IM CPT-4: 03537 05/09/2011 PROMETHAZINE HCL INJECTION CPT-4: J2550 05/09/2011 HYDRATION IV INFUSION INIT CPT-4: 88245 05/09/2011 DESTRUCT PREMALG LESION (Cryosurgery) CPT-4: 81372 DESTRUCT PREMALG LES 2-14 CPT-4: 03187 07/19/2010 REMOVAL OF SKIN TAGS <W/15 CPT-4: 84697 05/30/2010 THER/PROPH/DIAG INJ SC/IM CPT-4: 54367 04/05/2010 CEFTRIAXONE SODIUM INJECTION CPT-4: J0696 04/05/2010 TRIAMCINOLONE ACET INJ NOS CPT-4: J3301 04/05/2010 METHYLPREDNISOLONE 40 MG INJ CPT-4: J1030 04/05/2010 THER/PROPH/DIAG INJ SC/IM CPT-4: 92734 04/05/2010 TRIAMCINOLONE ACET INJ NOS CPT-4: J3301 03/09/2010 METHYLPREDNISOLONE 40 MG INJ CPT-4: J1030 03/09/2010 THER/PROPH/DIAG INJ SC/IM CPT-4: 83380 03/09/2010 THER/PROPH/DIAG INJ SC/IM CPT-4: 28299 03/09/2010 CEFTRIAXONE SODIUM INJECTION CPT-4: J0696 03/09/2010 [...] 1: 132/80 Code: 8480-6 BMI: 35.8 Code: 98306-1 Heart Rate 1: 88 bpm Height: 5'4" Respiratory Rate: 20 bpm SpO2: 95% Tempera ture: 36.9 (C) / 98.5 (F) Weight: 210 lbs 05/28/2019 Blood Pressure 1: 126/82 Code: 8480-6 BMI: 35.0 Code: 51893-5 Heart Rate 1: 88 bpm Height: 5'4" [...] 1: 128/90 Code: 8480-6 BMI: 37.2 Code: 15509-0 Heart Rate 1: 84 bpm Height: 5'4" Respiratory Rate: 20 bpm SpO2: 95% Tempera ture: 36.6 (C) / 97.8 (F) Weight: 217 lbs 08/27/2018 Blood Pressure 1: 128/88 Code: 8480-6 BMI: 38.3 Code: 43194-7 Heart Rate 1: 84 bpm Height: 5'4" [...] 1: 119/72 Code: 8480-6 BMI: 37.4 Code: 64093-3 Heart Rate 1: 82 bpm Height: 5'4" Respiratory Rate: 12 bpm SpO2: 94% Tempera ture: 35.2 (C) / 95.4 (F) Weight: 218 lbs 12/18/2017 Blood Pressure 1: 128/86 Code: 8480-6 BMI: 37.8 Code: 49947-2 Heart Rate 1: 84 bpm Height: 5'4" [...] 1: 128/82 Code: 8480-6 BMI: 35.5 Code: 88941-2 Heart Rate 1: 84 bpm Height: 5'4" [...] 1: 128/82 Code: 8480-6 BMI: 30.2 Code: 48131-4 Heart Rate 1: 80 bpm Height: 5'4" [...] 1: 128/86 Code: 8480-6 BMI: 32.8 Code: 56396-3 Heart Rate 1: 66 bpm Height: 5'4" Respiratory Rate: 18 bpm Temperature: 36 .3 (C) / 97.3 (F) Weight: 191 lbs 06/23/2013 Blood Pressure 1: 132/94 Code: 8480-6 BMI: 34.0 Code: 40737-9 Heart Rate 1: 84 bpm Height: 5'4" Respiratory Rate: 20 bpm Temperature: 36 .8 (C) / 98.2 (F) Weight: 198 lbs 05/26/2013 Blood Pressure 1: 114/80 Code: 8480-6 BMI: 35.0 Code: 98565-6 Heart Rate 1: 80 bpm Height: 5'4" Respiratory Rate: 20 bpm Temperature: 36 .4 (C) / 97.6 (F) Weight: 204 lbs 04/16/2013 Blood Pressure 1: 114/82 Code: 8480-6 BMI: 36.7 Code: 28867-4 Heart Rate 1: 84 bpm Height: 5'4" Respiratory Rate: 20 bpm Temperature: 36 .7 (C) / 98.0 (F) Weight: 214 lbs 03/05/2013 Blood Pressure 1: 136/90 Code: 8480-6 BMI: 37.1 Code: 68249-5 Heart Rate 1: 84 bpm Height: 5'4" [...] 1: 168/114 Code: 8480-6 BMI: 36.2 Code: 35646-3 Heart Rate 1: 104 bpm Height: 5'4" Respiratory Rate: 20 bpm Temperature: 36 .8 (C) / 98.2 (F) Weight: 211 lbs 11/22/2012 Blood Pressure 1: 128/90 Code: 8480-6 Heart Rate 1: 88 bpm Respiratory Rate: 20 bpm SpO2: 96% Temperature: 36.8 (C) / 98.2 (F) 11/21/2012 Blood Pressure 1: 146/100 Code: 8480-6 BMI: 35.7 Code: 97504-5 Heart Rate 1: 96 bpm Height: 5'4" [...] 1: 138/100 Code: 8480-6 BMI: 35.7 Code: 53276-7 Heart Rate 1: 96 bpm Height: 5'4" Respiratory Rate: 20 bpm Temperature: 36 .8 (C) / 98.2 (F) Weight: 208 lbs 05/06/2012 Blood Pressure 1: 154/102 Code: 8480-6 BMI: 34.7 Code: 55088-5 Heart Rate 1: 116 bpm Height: 5'4" Respiratory Rate: 20 bpm Temperature: 36 .8 (C) / 98.2 (F) Weight: 202 lbs 04/03/2012 Blood Pressure 1: 134/94 Code: 8480-6 BMI: 34.8 Code: 52623-7 Heart Rate 1: 108 bpm Height: 5'4" Respiratory Rate: 20 bpm Temperature: 36 .8 (C) / 98.2 (F) Weight: 203 lbs 03/19/2012 Blood Pressure 1: 148/106 Code: 8480-6 BMI: 35.0 Code: 93418-4 Heart Rate 1: 100 bpm Height: 5'4" Respiratory Rate: 20 bpm Temperature: 36 .6 (C) / 97.9 (F) Weight: 204 lbs 02/22/2012 Blood Pressure 1: 146/94 Code: 8480-6 He art Rate 1: 88 bpm 02/21/2012 Blood Pressure 1: 172/120 Code: 8480-6 B lood Pressure 2: 152/106 Code: 8480-6 Heart Rate 1: 116 bpm 02/20/2012 Blood Pressure 1: 160/100 Code: 8480-6 BMI: 32.0 Code: 75925-7 Heart Rate 1: 84 bpm Height: 5'7" Temperature: 36.5 (C) / 97.7 (F) Weight: 204 lbs 01/30/2012 Blood Pressure 1: 152/110 Code: 8480-6 BMI: 32.0 Code: 00839-7 Heart Rate 1: 116 bpm Height: 5'7" Respiratory Rate: 20 bpm Temperature: 37 .0 (C) / 98.6 (F) Weight: 204 lbs 01/24/2012 Blood Pressure 1: 146/100 Code: 8480-6 BMI: 32.0 Code: 73076-4 Heart Rate 1: 100 bpm Height: 5'7" Respiratory Rate: 20 bpm Temperature: 36 .7 (C) / 98.0 (F) Weight: 204 lbs 01/10/2012 Blood Pressure 1: 156/94 Code: 8480-6 BMI: 32.6 Code: 23360-0 Heart Rate 1: 72 bpm Height: 5'7" Respiratory Rate: 20 bpm Temperature: 36 .8 (C) / 98.2 (F) Weight: 208 lbs 12/11/2011 Blood Pressure 1: 146/100 Code: 8480-6 Heart Rat e 1: 116 bpm Height: 5'7" Respiratory Rate: 20 bpm Temperature: 36.9 (C) / 98.4 (F) We ight: 11/09/2011 Blood Pressure 1: 148/96 Code: 8480-6 BMI: 32.1 Code: 18886-6 Heart Rate 1: 116 bpm Height: 5'7" Respiratory Rate: 20 bpm Temperature: 36 .7 (C) / 98.0 (F) Weight: 205 lbs 09/13/2011 Blood Pressure 1: 126/88 Code: 8480-6 Heart Rate 1: 88 bpm Height: 5'7" Respiratory Rate: 20 bpm Temperature: 36.9 (C) / 98.4 (F) We ight: 08/31/2011 Blood Pressure 1: 118/82 Code: 8480-6 BMI: 32.0 Code: 10197-4 Heart Rate 1: 80 bpm Height: 5'7" Temperature: 36.4 (C) / 97.6 (F) Weight: 204 lbs 07/06/2011 Blood Pressure 1: 128/86 Code: 8480-6 BMI: 30.9 Code: 94760-8 Heart Rate 1: 92 bpm Height: 5'7" Respiratory Rate: 20 bpm Temperature: 36 .9 (C) / 98.4 (F) Weight: 197 lbs 06/06/2011 Blood Pressure 1: 112/74 Code: 8480-6 BMI: 31.0 Code: 08657-7 Heart Rate 1: 72 bpm Height: 5'7" [...] 1: 128/92 Code: 8480-6 BMI: 33.6 Code: 24788-5 Heart Rate 1: 104 bpm Height: 5'4" [...] insomnia 01/24/2016 cough 12/23/2015 patient is chante cotterephin and steroid injection chest congestion 12/08/2015 injection(s) [...] in ER and given Cefprozil and Tessalon Michael blood pressure check 11/07/2012 blood pressure check [...] Diagnosis: Allergic rhinitis[ICD10: J30.9] María Elena JUARES [email or web address] CPT-4: 07076 01/13/2020 ([id number]) OFFICE/OUTPATIENT VISIT EST Diagnosis: Type 2 diabetes mellitus with hyperglycemia[ICD10: E11.65] María Elena JUARES [email or web address] CPT-4: 45390 11/20/2019 ([id number]) OFFICE/OUTPATIENT VISIT EST Diagnosis: Ingrowing nail[ICD10: L60.0] Diagnosis: Type 2 diabetes mellitus with hyperglycemia[ICD10: E11.65] Kathleen JUARES [facility] CPT-4: 83786 10/07/2019 ([id number]) OFFICE/OUTPATIENT VISIT EST Diagnosis: DM w/o complication type II, uncontrolled[ICD10: E11.65] Diagnosis: Hypertriglyceridemia[ICD10: E78.1] Diagnosis: Essential hypertension[ICD10: I10] María Elena ELLISCIARRA [facility] CPT-4: 18764 09/30/2019 ([id number]) NURSE/OUTPATIENT VISIT EST Diagnosis: Essential (primary) hypertension[ICD10: I10] Diagnosis: Cervicalgia[ICD10: M54.2] Diagnosis: Hyperglycemia, unspecified[ICD10: R73.9] Diagnosis: Mixed hyperlipidemia[ICD10: E78.2] María Elena BASURTO TED [facility] CPT-4: 31730 09/29/2019 ([id number]) OFFICE/OUTPATIENT VISIT EST Diagnosis: Essential (primary) hypertension[ICD10: I10] Diagnosis: Fall from bed, sequela[ICD10: W06.XXXS] María Elena MONTERO APARNAGAEL Fabiola [facility] CPT-4: 22032 05/28/2019 ([id number]) NURSE/OUTPATIENT VISIT EST Diagnosis: Essential (primary) hypertension[ICD10: I10] María Elenamarcella Appiah MARÍA ELENA Fabiola [facility] CPT-4: 71412 05/19/2019 ([id number]) OFFICE/OUTPATIENT VISIT EST Diagnosis: Essential (primary) hypertension[ICD10: I10] Diagnosis: Type 2 diabetes mellitus with hyperglycemia[ICD10: E11.65] Diagnosis: Intervertebral disc disorders with radiculopathy, 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] Diagnosis: Hormone replacement therapy[ICD10: Z79.890] María Elena MONTEROQUELINE Fabiola [facility] CPT-4: 08008 01/22/2019 ([id number]) OFFICE/OUTPATIENT VISIT EST Diagnosis: Essential (primary) hypertension[ICD10: I10] Diagnosis: Type 2 diabetes mellitus with hyperglycemia[ICD10: E11.65] María Elena MONTEROQUELINE Fabiola [facility] CPT-4: 83131 09/30/2018 ([id number]) OFFICE/OUTPATIENT VISIT EST Diagnosis: Pain in left elbow[ICD10: M25.522] Diagnosis: Acute stress reaction[ICD10: F43.0] Diagnosis: Primary insomnia[ICD10: F51.01] Diagnosis: Abnormal weight gain[ICD10: R63.5] María Elena Oreabbey [facility] CPT-4: 01454 08/27/2018 ([id number]) OFFICE/OUTPATIENT VISIT EST Diagnosis: Acute recurrent sinusitis, unspecified[ICD10: J01.91] Diagnosis: Follicular disorder, unspecified[ICD10: L73.9] Diagnosis: Tinea corporis[ICD10: B35.4] María Elena [facility] CPT-4: 16698 08/09/2018 ([id number]) OFFICE/OUTPATIENT VISIT EST Diagnosis: Tinea corporis[ICD10: B35.4] Diagnosis: Anxiety disorder, unspecified[ICD10: F41.9] Diagnosis: Menopausal and female climacteric states[ICD10: N95.1] María Elena Seamusmindivictorino [facility] CPT-4: 94171 07/22/2018 ([id number]) NURSE/OUTPATIENT VISIT EST Diagnosis: Cellulitis of right toe[ICD10: L03.031] María Elena Seamusmindivictorino [facility] CPT-4: 45944 06/19/2018 ([id number]) OFFICE/OUTPATIENT VISIT EST Diagnosis: Cellulitis of right toe[ICD10: L03.031] Kathleen [facility] CPT-4: 14923 06/17/2018 ([id number]) OFFICE/OUTPATIENT VISIT EST Diagnosis: Migraine without aura, intractable, without status migrainosus[ICD10: G43.019] Diagnosis: Zoster without complications[ICD10: B02.9] Kathleen [facility] CPT-4: 92115 05/16/2018 ([id number]) OFFICE/OUTPATIENT VISIT EST Diagnosis: Cellulitis of right lower limb[ICD10: L03.115] Kathleen [facility] CPT-4: 24986 03/20/2018 ([id number]) OFFICE/OUTPATIENT VISIT EST Diagnosis: Cellulitis of right lower limb[ICD10: L03.115] Kathleen APPIAH [facility] CPT-4: 30762 03/18/2018 ([id number]) OFFICE/OUTPATIENT VISIT EST Diagnosis: Cellulitis of right lower limb[ICD10: L03.115] Kathleen APPIAH DO [facility] CPT-4: 60824 03/15/2018 ([id number]) OFFICE/OUTPATIENT VISIT EST Diagnosis: Acute sinusitis, unspecified[ICD10: J01.90] Kathleen APPIAH DO [facility] CPT-4: 19123 02/11/2018 ([id number]) NURSE/OUTPATIENT VISIT EST Diagnosis: Otitis media, unspecified, right ear[ICD10: H66.91] María Elena APPIAH DO [facility] CPT-4: 69039 02/01/2018 ([id number]) OFFICE/OUTPATIENT VISIT EST Diagnosis: Acute suppurative otitis media without spontaneous rupture of ear drum, left ear[ICD10: H66.002] Diagnosis: Abnormal weight gain[ICD10: R63.5] Diagnosis: Intervertebral disc disorders with radiculopathy, 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] Kathleen APPIAH DO [facility] CPT-4: 99 214 01/30/2018 ([id number]) PREV VISIT EST AGE 40-64 Diagnosis: Encounter for general adult medical examination without abnormal findings[ICD10: Z00.00] Diagnosis: Essential (primary) hypertension[ICD10: I10] Diagnosis: Mixed hyperlipidemia[ICD10: E78.2] Diagnosis: Type 2 diabetes mellitus with hyperglycemia[ICD10: E11.65] Diagnosis: 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] María Elena APPIAH DO [facility] CPT-4: 08554 12/18/2017 ([id number]) OFFICE/OUTPATIENT VISIT EST Diagnosis: Cellulitis of right toe[ICD10: L03.031] Diagnosis: Mixed hyperlipidemia[ICD10: E78.2] Diagnosis: Essential (primary) hypertension[ICD10: I10] Diagnosis: Hyperglycemia, unspecified[ICD10: R73.9] Diagnosis: Nontoxic goiter, 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] María Elena APPIAH DO [facility] CPT-4: 40151 12/10/2017 ([id number]) OFFICE/OUTPATIENT VISIT EST Diagnosis: Cellulitis of right toe[ICD10: L03.031] Diagnosis: Acute sinusitis, unspecified[ICD10: J01.90] Kathleen APPIAH DO [facility] CPT-4: 00058 12/07/2017 OFFICE/OUTPATIENT VISIT EST Diagnosis: Acute maxillary sinusitis, unspecified[ICD10: J01.00] Kathleen APPIAH DO [facility] CPT-4: 69825 10/08/2017 ([id number]) OFFICE/OUTPATIENT VISIT EST Diagnosis: Cellulitis of left toe[ICD10: L03.032] María Elena [facility] CPT-4: 16182 09/21/2017 ([id number]) OFFICE/OUTPATIENT VISIT EST Diagnosis: Insomnia, unspecified[ICD10: G47.00] Diagnosis: Major depressive disorder, single episode, unspecified[ICD10: F32.9] Diagnosis: Anxiety disorder, unspecified[ICD10: F41.9] Diagnosis: Cellulitis of left toe[ICD10: L03.032] Diagnosis: Snoring[ICD10: R06.83] Kathleen APPIAH DO [facility] CPT-4: 98297 09/20/2017 ([id number]) OFFICE/OUTPATIENT VISIT EST Diagnosis: Cellulitis of left toe[ICD10: L03.032] María Elena APPIAH DO [facility] CPT-4: 04514 07/19/2017 OFFICE/OUTPATIENT VISIT EST Diagnosis: Chronic sinusitis, unspecified[ICD10: J32.9] Diagnosis: Generalized hyperhidrosis[ICD10: R61] Kathleen APPIAH DO [facility] CPT-4: 44804 06/27/2017 ([id number]) OFFICE/OUTPATIENT VISIT EST Diagnosis: Intervertebral disc disorders with radiculopathy, 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] Diagnosis: Primary insomnia[ICD10: F51.01] Diagnosis: Other fatigue[ICD10: R53.83] María Elena APPIAH DO [facility] CPT-4: 56715 04/10/2017 ([id number]) OFFICE/OUTPATIENT VISIT EST Diagnosis: Primary insomnia[ICD10: F51.01] Diagnosis: Localized edema[ICD10: R60.0] Diagnosis: 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] María Elena APPIAH DO [facility] CPT-4: 67723 12/13/2016 ([id number]) OFFICE/OUTPATIENT VISIT EST Diagnosis: Primary insomnia[ICD10: F51.01] Diagnosis: Cyanosis[ICD10: R23.0] María Elena [facility] CPT-4: 38381 11/01/2016 ([id number]) PREV VISIT EST AGE 40-64 Diagnosis: Encounter for gynecological examination (general) (routine) without abnormal findings[ICD10: Z01.419] Diagnosis: Encounter for routine child health examination without abnormal findings[ICD10: Z00.129] María Elena APPIA[facility] CPT-4: 08362 10/17/2016 ([id number]) OFFICE/OUTPATIENT VISIT EST Diagnosis: Other seasonal allergic rhinitis[ICD10: J30.2] María Elena APPIAH DO [facility] CPT-4: 68483 10/10/2016 ([id number]) OFFICE/OUTPATIENT VISIT EST Diagnosis: Pain in left arm[ICD10: M79.602] Diagnosis: Contact with and (suspected) exposure to potentially hazardous body fluids[ICD10: Z77.21] Diagnosis: 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, 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] Diagnosis: Unspecified open wound, right foot, sequela[ICD10: S91.301S] María Elnea APPIAH DO [facility] CPT-4: 81476 09/19/2016 ([id number]) OFFICE/OUTPATIENT VISIT EST Diagnosis: Chronic sinusitis, unspecified[ICD10: J32.9] Diagnosis: Allergic rhinitis due to pollen[ICD10: J30.1] María Elena APPIAH [employer] [facility] CPT-4: 41780 08/24/2016 ([id number]) OFFICE/OUTPATIENT VISIT EST Diagnosis: Acute bronchitis, unspecified[ICD10: J20.9] María Elena APPIAH DO [facility] CPT-4: 83763 08/16/2016 ([id number]) OFFICE/OUTPATIENT VISIT EST Diagnosis: Otitis media, unspecified, right ear[ICD10: H66.91] Diagnosis: Acute bronchitis, unspecified[ICD10: J20.9] María Elena APPIAH DO [facility] CPT-4: 25806 08/10/2016 ([id number]) OFFICE/OUTPATIENT VISIT EST Diagnosis: Acute recurrent sinusitis, unspecified[ICD10: J01.91] Diagnosis: Allergic rhinitis due to pollen[ICD10: J30.1] María Elena APPIAH DO [facility] CPT-4: 10591 08/02/2016 ([id number]) OFFICE/OUTPATIENT VISIT EST Diagnosis: Pain in unspecified joint[ICD10: M25.50] María Elena APPIAH DO [facility] CPT-4: 99706 07/27/2016 OFFICE/OUTPATIENT VISIT EST Diagnosis: 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] Diagnosis: Acute recurrent sinusitis, unspecified[ICD10: J01.91] Diagnosis: Other fatigue[ICD10: R53.83] Diagnosis: Primary insomnia[ICD10: F51.01] Diagnosis: Pain in unspecified joint[ICD10: M25.50] María Elena APPIAH [employer] [facility] CPT-4: 99921 07/20/2016 ([id number]) OFFICE/OUTPATIENT VISIT EST Diagnosis: Blister (nonthermal), left great toe, initial encounter[ICD10: S90.422A] Loan APPIAH DO [facility] CPT-4: 03963 ([id number]) OFFICE/OUTPATIENT VISIT EST Diagnosis: Acute recurrent sinusitis, unspecified[ICD10: J01.91] María Elena APPIAH DO [facility] CPT-4: 91156 05/25/2016 ([id number]) OFFICE/OUTPATIENT VISIT EST Diagnosis: Acute sinusitis, unspecified[ICD10: J01.90] María Elena APPIAH DO [facility] CPT-4: 60366 04/26/2016 ([id number]) OFFICE/OUTPATIENT VISIT EST Diagnosis: Flushing[ICD10: R23.2] Diagnosis: Primary insomnia[ICD10: F51.01] María Elena APPIAH DO [facility] CPT-4: 32991 03/02/2016 ([id number]) OFFICE/OUTPATIENT VISIT EST Diagnosis: Other seasonal allergic rhinitis[ICD10: J30.2] Loan APPIAH DO [facility] CPT-4: 44456 02/09/2016 ([id number]) OFFICE/OUTPATIENT VISIT EST Diagnosis: Primary insomnia[ICD10: F51.01] Diagnosis: Urinary tract infection, site not specified[ICD10: N39.0] María Elena APPIAH [facility] CPT-4: 47131 01/24/2016 ([id number]) OFFICE/OUTPATIENT VISIT EST Diagnosis: Other specified disorders of Eustachian tube, bilateral[ICD10: H69.83] Diagnosis: Allergic rhinitis, unspecified[ICD10: J30.9] Loan APPIAH DO [facility] CPT-4: 16473 12/23/2015 ([id number]) OFFICE/OUTPATIENT VISIT EST Diagnosis: Acute recurrent sinusitis, unspecified[ICD10: J01.91] Diagnosis: 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] Diagnosis: Allergic rhinitis, unspecified[ICD10: J30.9] María Elena APPIAH DO [facility] CPT-4: 06506 12/08/2015 ([id number]) OFFICE/OUTPATIENT VISIT EST Diagnosis: Allergic rhinitis, unspecified[ICD10: J30.9] Diagnosis: Pain in unspecified joint[ICD10: M25.50] María Elena APPIAH [facility] CPT-4: 66294 10/07/2015 ([id number]) OFFICE/OUTPATIENT VISIT EST Diagnosis: Essential (primary) hypertension[ICD10: I10] María Elena APPIAH DO [facility] CPT-4: 23286 10/06/2015 OFFICE/OUTPATIENT VISIT EST Diagnosis: Localized enlarged lymph nodes[ICD10: R59.0] Diagnosis: Local infection of the skin and subcutaneous tissue, unspecified[ICD10: L08.9] June APPIAH DO [facility] CPT- 4: 44615 09/14/2015 ([id number]) OFFICE/OUTPATIENT VISIT EST Diagnosis: Essential (primary) hypertension[ICD10: I10] Diagnosis: Actinic keratosis[ICD10: L57.0] María Elena APPIAH DO [facility] CPT-4: 38857 09/07/2015 ([id number]) OFFICE/OUTPATIENT VISIT EST Diagnosis: Essential (primary) hypertension[ICD10: I10] Diagnosis: Acute stress reaction[ICD10: F43.0] María Elena APPIAH DO [facility] CPT-4: 08578 08/18/2015 ([id number]) OFFICE/OUTPATIENT VISIT EST Diagnosis: Essential (primary) hypertension[ICD10: I10] María Elena APPIAH DO [facility] CPT-4: 22597 07/07/2015 ([id number]) OFFICE/OUTPATIENT VISIT EST Diagnosis: Essential (primary) hypertension[ICD10: I10] María Elena APPIAH DO [facility] CPT-4: 16525 06/24/2015 ([id number]) OFFICE/OUTPATIENT VISIT EST Diagnosis: Essential (primary) hypertension[ICD10: I10] María Elena APPIAH DO [facility] CPT-4: 55190 06/21/2015 ([id number]) OFFICE/OUTPATIENT VISIT EST Diagnosis: Essential (primary) hypertension[ICD10: I10] Diagnosis: Mixed hyperlipidemia[ICD10: E78.2] Diagnosis: Acute stress reaction[ICD10: F43.0] Diagnosis: Primary insomnia[ICD10: F51.01] María Elena APPIAH DO [facility] CPT-4: 15138 06/16/2015 ([id number]) OFFICE/OUTPATIENT VISIT EST Diagnosis: INSOMNIA NOS[ICD9: 780.52] Diagnosis: HYPERTENSION[ICD9: 401.9] Diagnosis: Stress reaction[ICD9: 308.9] María Elena APPIAH DO [facility] CPT-4: 67438 06/02/2015 ([id number]) OFFICE/OUTPATIENT VISIT EST Diagnosis: HYPERTENSION[ICD9: 401.9] Diagnosis: Stress reaction[ICD9: 308.9] María Elena APPIAH DO [facility] CPT-4: 20057 05/20/2015 ([id number]) OFFICE/OUTPATIENT VISIT EST Diagnosis: Skin lesion[ICD9: 709.9] 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] María Elena APPIAH DO [facility] CPT-4: 83875 05/10/2015 ([id number]) OFFICE/OUTPATIENT VISIT EST Diagnosis: SINUSITIS, ACUTE[ICD9: 461.9] Diagnosis: ALLERGIC RHINITIS[ICD9: 477.9] Diagnosis: DERMATITIS NOS[ICD9: 692.9] María Elena [facility] CPT-4: 56272 03/16/2015 OFFICE/OUTPATIENT VISIT EST Diagnosis: Otitis media[ICD9: 382.9] Diagnosis: SINUSITIS, ACUTE[ICD9: 461.9] June Flores MARÍA ELENA APPIAH DO [facility] CPT-4: 71086 09/11/2014 ([id number]) OFFICE/OUTPATIENT VISIT EST Diagnosis: HYPERLIPIDEMIA NEC/NOS[ICD9: 272.4] María Elena COLON S. TD GARIBAY [facility] CPT-4: 15381 08/31/2014 ([id number]) OFFICE/OUTPATIENT VISIT EST Diagnosis: - I - HYPERTENSION[ICD9: 401.9] Diagnosis: HYPERLIPIDEMIA NEC/NOS[ICD9: 272.4] María Elena COLON S. SEAMUSNDVICTORINO GARIBAY [facility] CPT-4: 85238 08/27/2014 ([id number]) OFFICE/OUTPATIENT VISIT EST Diagnosis: ABDOMINAL PAIN[ICD9: 789.00] Diagnosis: DYSPEPSIA[ICD9: 536.8] Diagnosis: Thoracic back pain[ICD9: 724.1] María Elena APPIAH [facility] CPT-4: 94460 07/21/2014 ([id number]) OFFICE/OUTPATIENT VISIT EST Diagnosis: ALLERGIC RHINITIS[ICD9: 477.9] María Elena APPIAH DO [facility] CPT-4: 40209 07/15/2014 ([id number]) OFFICE/OUTPATIENT VISIT EST Diagnosis: EDEMA[ICD9: 782.3] Diagnosis: Chronic insomnia[ICD9: 780.52] María Elena APPIAH [facility] CPT-4: 39436 05/18/2014 ([id number]) OFFICE/OUTPATIENT VISIT EST Diagnosis: Thyromegaly[ICD9: 240.9] Diagnosis: - I - HYPERTENSION[ICD9: 401.9] Diagnosis: ROUTINE MEDICAL EXAM[ICD9: V70.0] Diagnosis: EDEMA[ICD9: 782.3] María Elena APPIAH [facility] CPT-4: 93034 05/14/2014 OFFICE/OUTPATIENT VISIT EST Diagnosis: BRONCHITIS, ACUTE[ICD9: 466.0] Diagnosis: SINUSITIS, ACUTE[ICD9: 461.9] María Elena APPIAH [facility] CPT-4: 18654 04/21/2014 OFFICE/OUTPATIENT VISIT EST Diagnosis: SINUSITIS, ACUTE[ICD9: 461.9] June Flores MARÍA ELENA APPIAH [facility] CPT-4: 91988 03/04/2014 ([id number]) OFFICE/OUTPATIENT VISIT EST Diagnosis: VACCINE FOR TDAP[ICD10: Z23] María Elena APPIAH [facility] CPT-4: 62819 02/27/2014 ([id number]) OFFICE/OUTPATIENT VISIT EST Diagnosis: Seborrheic keratoses, inflamed[ICD9: 702.11] Diagnosis: ACTINIC KERATOSIS[ICD9: 702.0] Diagnosis: INSOMNIA NOS[ICD9: 780.52] María Elena [facility] CPT-4: 75290 01/13/2014 OFFICE/OUTPATIENT VISIT EST 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] Diagnosis: ALLERGIC RHINITIS[ICD9: 477.9] Diagnosis: Serous otitis media[ICD9: 381.4] María Elena APPIAH DO [facility] CPT-4: 84817 12/24/2013 ([id number]) OFFICE/OUTPATIENT VISIT EST Diagnosis: SINUSITIS, ACUTE[ICD9: 461.9] Diagnosis: ALLERGIC RHINITIS[ICD9: 477.9] 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] María Elena APPIAH DO [facility] CPT-4: 15482 11/12/2013 ([id number]) OFFICE/OUTPATIENT VISIT EST Diagnosis: ALLERGIC RHINITIS[ICD9: 477.9] Diagnosis: SINUSITIS, ACUTE[ICD9: 461.9] María Elena APPIAH [facility] CPT-4: 68687 10/21/2013 ([id number]) OFFICE/OUTPATIENT VISIT EST Diagnosis: ASYMPTOMATIC VARICOSE VEINS[ICD9: 454.9] Diagnosis: INSOMNIA NOS[ICD9: 780.52] María Elena [facility] CPT-4: 15769 09/22/2013 OFFICE/OUTPATIENT VISIT EST Diagnosis: SINUSITIS, ACUTE[ICD9: 461.9] June VelozAlbertadaniella APPIAH [facility] CPT-4: 00232 08/27/2013 ([id number]) OFFICE/OUTPATIENT VISIT EST Diagnosis: CEPHALGIA[ICD9: 784.0] Diagnosis: CEPHALGIA, TENSION[ICD9: 307.81] 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] María Elena APPIAH [facility] CPT-4: 86043 08/04/2013 ([id number]) OFFICE/OUTPATIENT VISIT EST Diagnosis: Cervicalgia[ICD9: 723.1] Diagnosis: SPASM OF MUSCLE[ICD9: 728.85] Diagnosis: CEPHALGIA, TENSION[ICD9: 307.81] María Elena APPIAH [facility] CPT-4: 14130 07/23/2013 ([id number]) OFFICE/OUTPATIENT VISIT EST 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] Diagnosis: ALLERGIC RHINITIS[ICD9: 477.9] María Elena Seamusabbey MARÍA ELENA Lucio APPIAH [facility] CPT-4: 86567 06/23/2013 ([id number]) OFFICE/OUTPATIENT VISIT EST Diagnosis: ALLERGIC RHINITIS[ICD9: 477.9] Diagnosis: ACUTE SEROUS OTITIS MEDIA[ICD9: 381.01] 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] María Elena JUARES LucioJj TD [employer] [facility] CPT-4: 25969 05/26/2013 ([id number]) OFFICE/OUTPATIENT VISIT EST Diagnosis: HYPERTENSION[ICD9: 401.9] Diagnosis: EDEMA[ICD9: 782.3] Diagnosis: Serous otitis media[ICD9: 381.4] María Elena Ortavictorino MARÍA ELENA LucioJj TD [employer] [facility] CPT-4: 85325 04/16/2013 ([id number]) OFFICE/OUTPATIENT VISIT EST Diagnosis: SINUSITIS, ACUTE[ICD9: 461.9] Diagnosis: ALLERGIC RHINITIS[ICD9: 477.9] Diagnosis: EDEMA[ICD9: 782.3] Diagnosis: Thyromegaly[ICD9: 240.9] Diagnosis: MALAISE AND FATIGUE[ICD9: 780.79] María Elena Lopez LucioJj TD [employer] [facility] CPT-4: 72908 03/05/2013 ([id number]) OFFICE/OUTPATIENT VISIT EST Diagnosis: PAIN, LOWER BACK[ICD9: 724.2] Diagnosis: SPASM OF MUSCLE[ICD9: 728.85] María Elena JUARES LucioJj TD [employer] [facility] CPT-4: 21240 12/23/2012 OFFICE/OUTPATIENT VISIT EST Diagnosis: Low back pain[ICD9: 724.2] Lashawn Hicks KRISTYN MUMTAZ [employer] [facility] CPT-4: 52776 12/16/2012 ([id number]) OFFICE/OUTPATIENT VISIT EST Diagnosis: PAIN, LOWER BACK[ICD9: 724.2] Diagnosis: SCIATICA[ICD9: 724.3] Diagnosis: Lumbar herniated disc[ICD9: 722.10] María Elena COLON LucioJj [facility] CPT-4: 66540 12/09/2012 ([id number]) OFFICE/OUTPATIENT VISIT EST Diagnosis: PAIN, LOWER BACK[ICD9: 724.2] Diagnosis: SCIATICA[ICD9: 724.3] Diagnosis: LUMBAR DISC DISPLACEMENT[ICD9: 722.10] María Elena MARIN Fabiola APPIAH [facility] CPT-4: 43562 12/04/2012 OFFICE/OUTPATIENT VISIT EST Diagnosis: Pneumonia[ICD9: 486] Mary Layne MARÍA ELENA APPIAH [facility] CPT-4: 75367 11/22/2012 ([id number]) OFFICE/OUTPATIENT VISIT EST Diagnosis: PNEUMONIA, ORGANISM[ICD9: 486] Diagnosis: Exacerbation of RAD (reactive airway disease)[ICD9: 493.92] María Elenamarcella Appiah MARÍA ELENA Fabiola APPIAH [facility] CPT-4: 40919 11/21/2012 OFFICE/OUTPATIENT VISIT EST Diagnosis: HYPERTENSION[ICD9: 401.9] Diagnosis: Cephalgia[ICD9: 784.0] Lashawn MONTEROQUELINE Fabiola APPIAH [facility] CPT-4: 90418 10/29/2012 ([id number]) OFFICE/OUTPATIENT VISIT EST Diagnosis: MALAISE AND FATIGUE[ICD9: 780.79] Diagnosis: ARTHRALGIA-MULTIPLE SITES[ICD9: 719.49] María Elena Appiah KYLAH BRAUNGAEL Fabiola APPIAH [facility] CPT-4: 50038 10/14/2012 ([id number]) OFFICE/OUTPATIENT VISIT EST Diagnosis: URINARY FREQUENCY[ICD9: 788.41] María Elena MONTEROQUELINE Fabiola APPIAH DO [facility] CPT-4: 81956 09/27/2012 ([id number]) OFFICE/OUTPATIENT VISIT EST Diagnosis: MALAISE AND FATIGUE[ICD9: 780.79] Diagnosis: ARTHRALGIA-MULTIPLE SITES[ICD9: 719.49] María Elena MONTERO APARNAGAEL Fabiola APPIAH DO [facility] CPT-4: 65300 09/25/2012 ([id number]) OFFICE/OUTPATIENT VISIT EST Diagnosis: SINUSITIS, ACUTE[ICD9: 461.9] 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] María Elena APPIAH [facility] CPT-4: 75854 08/29/2012 OFFICE/OUTPATIENT VISIT EST Diagnosis: ACTINIC KERATOSIS[ICD9: 702.0] Diagnosis: Inflamed seborrheic keratosis[ICD9: 702.11] Diagnosis: Skin cancer of face[ICD9: 173.31] Diagnosis: HYPERTENSION[ICD9: 401.9] María Elena [facility] CPT-4: 82002 08/12/2012 ([id number]) OFFICE/OUTPATIENT VISIT EST Diagnosis: ARTHRALGIA-MULTIPLE SITES[ICD9: 719.49] Diagnosis: GOUT[ICD9: 274.9] Diagnosis: HYPERTENSION[ICD9: 401.9] Diagnosis: Tachycardia[ICD9: 785.0] María Elena HU KARLOS [facility] CPT-4: 68140 05/06/2012 ([id number]) OFFICE/OUTPATIENT VISIT EST Diagnosis: INSOMNIA NOS[ICD9: 780.52] María Elena [facility] CPT-4: 97760 04/03/2012 ([id number]) OFFICE/OUTPATIENT VISIT EST Diagnosis: INSOMNIA NOS[ICD9: 780.52] Diagnosis: HYPERTENSION[ICD9: 401.9] Diagnosis: MIGRAINE NOS/NOT INTRCBL[ICD9: 346.90] María Elena [facility]: 99167 03/19/2012 ([id number]) OFFICE/OUTPATIENT VISIT EST Diagnosis: CELLULITIS[ICD9: 682.9] Diagnosis: Ankle pain[ICD9: 719.47] Diagnosis: HYPERTENSION[ICD9: 401.9] María Elena [facility] CPT-4: 04570 02/20/2012 ([id number]) OFFICE/OUTPATIENT VISIT EST Diagnosis: MIGRAINE NOS/NOT INTRCBL[ICD9: 346.90] Diagnosis: Vomiting[ICD9: 787.03] María Elena TANNER R [facility] CPT-4: 59577 01/30/2012 ([id number]) OFFICE/OUTPATIENT VISIT EST Diagnosis: EDEMA[ICD9: 782.3] Diagnosis: HYPERTENSION[ICD9: 401.9] Diagnosis: ALLERGIC RHINITIS[ICD9: 477.9] Diagnosis: ARTHRALGIA-MULTIPLE SITES[ICD9: 719.49] María Elena APPIAH [facility] CPT-4: 39419 01/24/2012 ([id number]) OFFICE/OUTPATIENT VISIT EST Diagnosis: SPASM OF MUSCLE[ICD9: 728.85] Diagnosis: Thoracic back pain[ICD9: 724.1] Diagnosis: Cervical pain[ICD9: 723.1] María Elena PANDYA [facility] CPT-4: 64300 01/10/2012 OFFICE/OUTPATIENT VISIT EST Diagnosis: PAIN, LOWER BACK[ICD9: 724.2] Diagnosis: LUMBAR DISC DISPLACEMENT[ICD9: 722.10] María Elena Seamusmindivicotrino MARLIN MARIN LucioJj [facility] CPT-[facility]: 29104 12/11/2011 OFFICE/OUTPATIENT VISIT EST Diagnosis: MIGRAINE NOS/NOT INTRCBL[ICD9: 346.90] Diagnosis: SINUSITIS, ACUTE[ICD9: 461.9] María Elena ValdesJj TD [facility] CPT-4: 85285 11/09/2011 OFFICE/OUTPATIENT VISIT EST Diagnosis: MIGRAINE NOS/NOT INTRCBL[ICD9: 346.90] Diagnosis: LYMPHADENOPATHY[ICD9: 785.6] María Elena ValdesJj TD [facility] CPT-4: 95036 09/13/2011 OFFICE/OUTPATIENT VISIT EST Diagnosis: MALAISE AND FATIGUE[ICD9: 780.79] Diagnosis: ARTHRALGIA-MULTIPLE SITES[ICD9: 719.49] María Elena Seamusmindivictorino KYLAH APARNAGAEL LucioJj TD [facility] CPT-4: 91530 08/31/2011 OFFICE/OUTPATIENT VISIT EST Diagnosis: SINUSITIS, ACUTE[ICD9: 461.9] María Elena ELLISLINE LucioJj TD [facility] CPT-4: 18137 07/20/2011 OFFICE/OUTPATIENT VISIT EST Diagnosis: HYPERTENSION[ICD9: 401.9] Diagnosis: PAIN, LOWER BACK[ICD9: 724.2] Diagnosis: SPASM OF MUSCLE[ICD9: 728.85] María Elena JUARES S. ORENDER DO [facility] CPT-4: 26064 07/06/2011 OFFICE/OUTPATIENT VISIT EST Diagnosis: MIGRAINE NOS/NOT INTRCBL[ICD9: 346.90] Diagnosis: HYPERTENSION[ICD9: 401.9] María Elena WAY NDER DO [facility] CPT-4: 05085 05/22/2011 OFFICE/OUTPATIENT VISIT EST Diagnosis: SINUSITIS, ACUTE[ICD9: 461.9] Diagnosis: MIGRAINE NOS/NOT INTRCBL[ICD9: 346.90] Diagnosis: Dehydration[ICD9: 276.51] Diagnosis: Vomiting[ICD9: 787.03] María Elena ORTAE R DO [facility] CPT-4: 35416 05/09/2011 ([id number]) OFFICE/OUTPATIENT VISIT EST María Elena ISAAC UJARED S. ORENDER DO [facility] CPT-4: 37464 02/14/2011 ([id number]) OFFICE/OUTPATIENT VISIT EST María Elena ISAAC UELINE S. ORENDER DO [facility] CPT-4: 76157 02/03/2011 ([id number]) OFFICE/OUTPATIENT VISIT EST María Elena ISAAC UELINE S. ORENDER DO [facility] CPT-4: 89031 01/31/2011 ([id number]) OFFICE/OUTPATIENT VISIT EST María Elena ISAAC [facility] CPT-4: 74442 01/25/2011 ([id number]) OFFICE/OUTPATIENT VISIT EST María Elena ISAAC UELINE S. ORENDER DO [facility] CPT-4: 00599 01/18/2011 ([id number]) OFFICE/OUTPATIENT VISIT EST María Elena ISAAC UELINE S. ORENDER DO [facility] CPT-4: 20866 11/29/2010 ([id number]) OFFICE/OUTPATIENT VISIT, EST María Elena Seamusmindivictorino BRAUNGAEL S. ORENDER DO [facility] CPT-4: 65863 10/10/2010 ([id number]) OFFICE/OUTPATIENT VISIT, EST María Elena Seamusmindivictorino BRAUNGAEL S. ORENDER DO [facility] CPT-4: 31316 06/07/2010 ([id number]) OFFICE/OUTPATIENT VISIT, EST María Elena REED SJj [facility] CPT-4: 05889 04/27/2010 ([id number]) OFFICE/OUTPATIENT VISIT, EST María Elena REED SJj [facility] CPT-4: 28258 04/05/2010 ([id number]) OFFICE/OUTPATIENT VISIT, EST María Elena REED SJj [facility] CPT-4: 79099 03/09/2010 ([id number]) OFFICE/OUTPATIENT VISIT, EST María Elena REED SJj [facility] CPT-4: 31713 03/03/2010 ([id number]) OFFICE/OUTPATIENT VISIT, EST María Elena REED SJj [facility] CPT-4: 60618 01/17/2010 ([id number]) PREV VISIT, EST, AGE 40-64 María Elena [facility] CPT-4: 04000 12/27/2009 Plan of Care Planned Activity Notes [...] 01/13/2020 App[facility]ment: María Elena [facility] [phone] [id number] [place] [facility] 01/13/2020 Patient Education: lisinopril- [employer] C[employer]on [id number] Completed 01/13/2020 Patient Education: glimepiride- [employer] C[employer]on [id number] Completed 01/13/2020 Appointment: María Elena [facility] [phone] [id number] [place] CANCELED 11/26/2019 Visit Diagnosis Plan: Type 2 diabetes mellitus with hy perglycemia Discussion: Januvia 100mg daily Glimepride 2mg po BID Accuchecks BID Call in 2 weeks with BS readings Get formulary book ICD-9 : 250.02 ICD-10 : E11.65 11/20/2019 Appointment: María Elena Appiah WPtel: [id number] [place] FOLLOW UP 11/20/2019 Patient Education: glimepiride- [employer] C[employer]on [id number] Completed 11/20/2019 Patient Education: Januvia- [employer] Coupon [id number] Completed 11/20/2019 Visit Diagnosis Plan: Ingrowing nail [...] ICD-10 : E11.65 10/07/2019 Appointment: Kathleen Zuniga [address] [place], [place] [id number] OFFICE SURGERY 10/07/2019 Visit Diagnosis Plan: Hypertriglyceridemia [...] : E11.65 09/30/2019 Appointment: María Elena Appiahtel: [address] [place], [place] [phone] [place] CHECK UP 09/30/2019 Patient Education: Premarin- [employer] Coupon [id number] https://[email or web address]/resources/getResource/[email or web address] Completed 09/30/2019 Appointment: María Elena Appiah WPtel: [address] [place], [place] [phone] [place] LAB 09/29/2019 Appointment: María Elena Appiah WPtel: [address] [place], [place] [phone] [place] Won't have the new insurance till [...] W06.XXXS 05/28/2019 Appointment: María Elena Appiah WPtel: [facility] [place] FOLLOW UP 05/28/2019 Appointment: María Elena Appiah WPtel: [address] [place], [place] [phone] [place] BP CHECK 05/19/2019 Visit Diagnosis Plan: [...] Z79.890 01/22/2019 Appointment: María Elena Appiah WPtel: [address] [place], [place] [phone] [place] FOLLOW UP 01/22/2019 Patient Education: estradiol- [employer] Coupon [id number] https://[email or web address]/resources/getResource/61/[email or web address] Completed 01/22/2019 Appointment: María Elena Appiah WPtel: [address] [place], [place] [phone] [place] CANCELED 01/20/2019 Appointment: María Elena Appiah WPtel: [address] [place], [place] [phone] [place] LM NO SHOW 01/06/2019 Appointment: María Elena Appiah WPtel: [address] [place], [place] [phone] [place] CANCELED 10/17/2018 Appointment: María Elena Appiah WPtel: [address] [place], [place] [phone] [place] BP CHECK 10/09/2018 Visit Diagnosis Plan: [...] I10 09/30/2018 Appointment: María Elena Appiah WPtel: [address] [place], [place] [id number] FOLLOW UP 09/30/2018 Visit Diagnosis Plan: Pain [...] F51.01 08/27/2018 Appointment: María Elena Appiah WPtel: [address] [place] [address] ACUTE ILLNESS 08/27/2018 Appointment: María Elena Appiah WPtel: [address] [place] [address] Patient stated she went out to start [...] Tyle... 08/09/2018 Appointment: María Elena Appiah WPtel: [address] [place] [address] ACUTE ILLNESS 08/09/2018 Appointment: María Elena Appiah WPtel: [address] [place] [address] NO SHOW 08/08/2018 Visit Diagnosis Plan: Anxiety [...] B35.4 07/22/2018 Appointment: María Elena Appiah WPtel: [address] [place] [address] ACUTE ILLNESS 07/22/2018 Appointment: María Elena Appiah WPtel: [address] [place] [address] [place] INJECTION 06/19/2018 Patient Education: Patient Medication [...] ICD-10 : L03.031 06/17/2018 Appointment: Kathleen Zuniga [address] [place] [address] ACUTE ILLNESS 06/17/2018 Patient Education: Patient Medication [...] ICD-10 : B02.9 05/16/2018 Appointment: Kathleen Zuniga [address] [place] [address] ACUTE ILLNESS 05/16/2018 Patient Education: Patient Medication [...] ICD-10 : L03.115 03/20/2018 Appointment: Kathleen Zuniga [address] [place], [place] [id number] FOLLOW UP 03/20/2018 Patient Education: Patient Medication [...] ICD-10 : L03.115 03/18/2018 Appointment: Kathleen Zuniga [address] [place], [place] [id number] FOLLOW UP 03/18/2018 Patient Education: Patient Medication [...] ICD-10 : L03.115 03/15/2018 Appointment: Kathleen Zuniga [address] [place] [address] ACUTE ILLNESS 03/15/2018 Patient Education: Patient Medication [...] ICD-10 : J01.90 02/11/2018 Appointment: Kathleen Zuniga [address] [place], [place] [id number] ACUTE ILLNESS 02/11/2018 Patient Education: Patient Medication Summary Completed 02/11/2018 Appointment: María Elena Appiah WPtel: [phone] [id number] [place] INJECTION 02/01/2018 Patient Education: Patient Medication [...] : M51.16 01/30/2018 Appointment: Kathleen Zuniga [address] ACUTE ILLNESS 01/30/2018 Patient Education: Patient [...] E11.65 12/18/2017 Appointment: María Elena Appiah WPtel: [address] [place] [address] Annual Well Visit 12/18/2017 Patient Education: Patient Medication Summary Completed 12/18/2017 Care Plan: Referral Order SNOMED-CT : [id number] Pending 12/18/2017 Appointment: María Elena Appaih WPtel: [address] [place] [address] INJECTION 12/10/2017 Patient Education: Patient Medication Summary [...] ICD-10 : L03.031 12/07/2017 Appointment: Kathleen Zuniga [address] [place] [address] ACUTE ILLNESS 12/07/2017 Patient Education: Patient Medication [...] ICD-10 : J01.00 10/08/2017 Appointment: Kathleen Zuniga [address] [place] [address] ACUTE ILLNESS 10/08/2017 Patient Education: Patient Medication Summary Completed 10/08/2017 Appointment: María Elena Appiah WPtel: [phone] [id number] [place] INJECTION 09/21/2017 Patient Education: Patient [...] : R06.83 09/20/2017 Appointment: Kathleen Zuniga 504 [facility] ACUTE ILLNESS 09/20/2017 Patient Education: [...] : L60.0 08/29/2017 App[facility]ment: [facility]iga [id number] 08/29/2017 Patient Education: Patient Medication Summary Completed 08/29/2017 Visit Diagnosis Plan: Actinic keratosis Discussion: Cr yotherapy as above ICD-9 : 702.0 ICD-10 : L57.0 08/01/2017 Appointment: María Elena Appiah WPtel: [phone] [facility] OFFICE SURGERY 08/01/2017 Patient Education: Patient Medication Summary Completed 08/01/2017 Appointment: María Elena Appiah WPtel: [address] [place] [address] PATIENT THOUGHT APPOINTMENT WAS TOMORROW 07/26/17 CALLED 15 MINUTES BEFORE APPT TO SAY SHE DIDN'T HAVE ANYONE TO COVER HER BUSINESS AND WOULD NOT MAKE IT NO SHOW 07/25/2017 Visit Diagnosis Plan: Cellulitis of left toe Discussio n: Clindamycin and notify if worsening or persistis ICD-9 : 681.10 ICD-10 : L03.032 07/19/2017 Appointment: María Elena Appiah WPtel: [address] [place] [address] MEDICATION REVIEW 07/19/2017 Patient Education: Patient Medication Summary Completed 07/19/2017 Appointment: María Elena Appiah WPtel: [facility] [address] CANCELED 07/04/2017 Visit Diagnosis Plan: Generalized hyperhidrosis Discus ian: CBC, CMP, TSH, free T4 ordered to assess. will review labs. ICD-9 : 780.8 ICD-10 : R61 06/27/2017 Visit Diagnosis Plan: Chronic sinusitis, unspecified D iscussion: Referral sent to dr. albarado in [place] per patient request. patient has been treated multiple times for sinus infections with no recovery. patient was seen by dr sanchez in the past with no interventions. patient has deviated septum which may be affecting her sinuses. 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, including hip Discussion: Shave removal of above lesio n--sent to pathology ICD-9 : 216.7 ICD-10 : D23.72 01/24/2017 Appointment: María Elena Appiah WPtel: [address] [place], [place] [phone] 01/23 confirmed ~sl OFFICE SURGERY 01/24/2017 Patient Education: Patient Medication Summary Completed 01/24/2017 Appointment: Loan Sánchez [address] [place], [place] [phone] 01/09 rescheduled~sl RESCHEDULED 01/15/2017 Visit [...] L81.4 12/13/2016 Appointment: María Elena Appiah WPtel: [address] [place], [place] [phone] 12/12 confirmed ~sl MEDICATION REVIEW 12/13/2016 Patient Education: Patient Medication Summary Completed 12/13/2016 Appointment: María Elena Appiah WPtel: [address] [place], [place] [id number] [place] rescheduled for 12/13/16 at 11am RESCHEDULED 0 12/06/2016 Appointment: María Elena Appiah WPtel: [phone] [facility] [place] CANCELED 11/23/2016 Patient Education: Patient [...] 11/01/2016 Appointment: María Elena Appiah WPtel: [address] [place], [place] [id number] 10/31 lm `sl 11/01 lm`sl MEDICATION REVIEW 017 Patient Education: Patient Medication Summary Completed 11/01/2016 Referral: Canelo Overton WPtel: [phone] [id number] [place] Referral Initiated 10/30/2016 Visit Diagnosis Plan: [...] Z01.419 10/17/2016 Appointment: María Elena Appiah WPtel: [address] [place] [address] 10/16 confirmed ~sl PAP 10/17/2016 Patient Education: Patient Medication Summary Completed 10/17/2016 Care Plan: MAMMOGRAM SCREENING LOINC : 2 6347-5 Pending 10/17/2016 Visit Diagnosis Plan: Other seasonal allergic rhinitis Discussion: Decadron/Garamycin Nasal [place] Mix Too soon for steroid Retry zyrtec 10mg daily ICD-9 : 477.9 ICD-10 : J30.2 10/10/2016 Appointment: María Elena Appiah WPtel: [address] [place] [address] FOLLOW UP 10/10/2016 Patient Education: Patient Medication Summary Completed 10/10/2016 Appointment: María Elena Appiah WPtel: [address] [place] [address] 10/02 reschedule `sl RESCHEDULED 10/02/2016 Visit Plan: See surgery for removal of n ew left arm lesion and right foot lesion Lyrica to use next month for left arm paresthesias Continue current meds Discussed sunscreen/sunblock combo 09/19/2016 Appointment: María Elena Appiah WPtel: [address] [place], [place] [address] 09/18 confirmed ~sl FOLLOW UP 09/19/2016 Patient Education: Patient Medication Summary Completed 09/19/2016 Patient Education: Patient Medication Summary Completed 09/18/2016 Care Plan: MAMMOGRAM BOTH BREASTS LOINC : 39730-8 Pending 09/18/2016 Visit Plan: Discussed that needs [...] sinuses 08/24/2016 Appointment: María Elena Appiah WPtel: [address] [place] [address] ACUTE ILLNESS 08/24/2016 Patient Education: Patient Medication Summary Completed 08/24/2016 Patient Education: Patient Medication Summary Completed 08/23/2016 Care Plan: MAMMOGRAM SCREENING LOINC : 2 6347-5 Pending 08/23/2016 Visit Plan: Finish doxycycline Add Breo 100/25 1 p BID for 2 weeks If not improving within next 2 days will get CXR 08/16/2016 Appointment: María Elena Appiah WPtel: [address] [place] [address] ACUTE ILLNESS 08/16/2016 Patient Education: Patient Medication Summary Completed 08/16/2016 Visit Plan: Supportive care. Rest, Fluid s, Tylenol/Motrin prn fever or bodyaches. Notify if worsening symptoms. Doxycyline and Prednisone 08/10/2016 Appointment: María Elena Appiah WPtel: [address] [place] [address] 08/09 lm`sl....confirmed-sp FOLLOW UP 09/2015 Patient Education: Patient Medication Summary Completed 08/10/2016 Visit Plan: Saline nasal flushes prn. Ty lenol/Motrin prn headache. Notify if persists/symptoms worsening. Dexamethasone 8mg IM today May use coricedan and mucinex 08/02/2016 Appointment: María Elena Appiah WPtel: [address] [place] [address] ACUTE ILLNESS 08/02/2016 Patient Education: Patient Medication Summary Completed 08/02/2016 Visit Plan: Cryotherapy as above and lef t forearm lesion removal as above with 5-0 punch biopsy and sent to path Return in 10 days for suture removal 08/01/2016 Appointment: María Elena Appiah WPtel: [address] [place] [address] 07/31 confirmed`~sl OFFICE SURGERY 08/01/2016 Patient Education: Patient Medication Summary Completed 08/01/2016 Visit Plan: Stop clindamycin Check CBC, CMP, ESR now/STAT 07/27/2016 Appointment: María Elena Appiah WPtel: [address] [place] [address] ACUTE ILLNESS 07/27/2016 Patient Education: Patient Medication Summary Completed 07/27/2016 Visit Plan: Update lab and check ABIs to start with Will likely need cardiology evaluation to rule out PVD Clindamycin for 10 days Daily yogurt or probiotic Will return for removal of left arm lesions 07/20/2016 Appointment: María Elena Appiah WPtel: [address] [place] [address] ACUTE ILLNESS 07/20/2016 Patient Education: Patient Medication Summary Completed 07/20/2016 Patient Education: Patient Medication Summary Completed 07/20/2016 Care Plan: MAMMOGRAM BOTH BREASTS LOINC : 95041-1 Pending 07/20/2016 Care Plan: US EXAM CHEST LOINC : 50711-8 Pending 07/20/2016 Visit Plan: Wound culture collected from left great toe Appearance is somewhat staph like Rx as above Wound cleanser and skin care reviewed May need to add oral antibiotic if sores do not heal or continue to reoccur 07/06/2016 Appointment: Loan Sánchez [address] [place] [address] ACUTE ILLNESS 07/06/2016 Patient Education: Patient Medication Summary Completed 07/06/2016 Appointment: María Elena Appiah WPtel: [address] [place] [address] [place] INJECTION 05/25/2016 Patient Education: Patient Medication Summary Completed 05/25/2016 Visit Plan: Saline nasal flushes prn. Ty lenol/Motrin prn headache. Notify if persists/symptoms worsening. Dexamethasone and Rocephin given 04/26/2016 Appointment: María Elena Appiah WPtel: [address] [place] [address] ACUTE ILLNESS 04/26/2016 Patient Education: Patient Medication Summary Completed 04/26/2016 Visit Plan: Check CBC, CMP, TSH, FreeT4, HbA1C, estradiol, lipids in AM 03/02/2016 Appointment: María Elena Appiah WPtel: [address] [place], [place] [phone] 03/01 lm~sl ACUTE ILLNESS 03/02/2016 Patient Education: Patient Medication Summary Completed 03/02/2016 Visit Plan: Exam is nearly normal Needs to be taking daily antihistamine Would prefer to use oral steroids instead of shot but patient insist that oral steroids cause horrible headaches for her Will given kenalog IM instead 02/09/2016 Appointment: Loan Sánchez [address] [place] [address] ACUTE ILLNESS 02/09/2016 Patient Education: Patient Medication Summary Completed 02/09/2016 Visit Plan: Culture urine Macrobid DC xa nax Trial of Ativan 1mg q HS 01/24/2016 Appointment: María Elena Appiah WPtel: [address] [place] [address] ACUTE ILLNESS 01/24/2016 Patient Education: Patient Medication Summary Completed 01/24/2016 Visit Plan: No steroid or rocephin injec tion warranted Can have oral prednisone Continue current home regimen Needs to follow up with Dr Sanchez if problems persist 12/23/2015 Appointment: Loan Sánchez [address] [place] [address] ACUTE ILLNESS 12/23/2015 Patient Education: Patient Medication Summary Completed 12/23/2015 Visit Plan: Saline nasal flushes prn. Ty lenol/Motrin prn headache. Notify if persists/symptoms worsening. Kenalog 40mg IM today 12/08/2015 Appointment: María Elena Appiah WPtel: [address] [place] [address] 12/06 confirmed~sl ACUTE ILLNESS 12/08/2015 Patient Education: Patient Medication Summary Completed 12/08/2015 Appointment: María Elena Appiah WPtel: [address] [place] [address] ACUTE ILLNESS 11/18/2015 Patient Education: Patient Medication Summary Completed 10/11/2015 Appointment: María Elena Appiah WPtel: [address] [place] [address] [place] INJECTION 10/07/2015 Patient Education: Patient Medication Summary Completed 10/07/2015 Visit Plan: Check renal arterial doppler s and ECHO Change amlodopine to lotrel 5/20mg q HS Will need stress test as well Check CMP, uric acid, ESR 10/06/2015 Appointment: María Elena Appiah WPtel: [address] [place] [address] ACUTE ILLNESS 10/06/2015 Patient Education: Patient Medication Summary Completed 10/06/2015 Patient Education: [facility] - Saving AutoInj - Amlodipine Besylate - 18-64 - Dynamic Portal ID Completed 10/06/2015 Appointment: María Elena Appiah WPtel: [address] [place] [address] FOLLOW UP 09/22/2015 Visit Plan: Cephalexin 500 mg PO bid Mery ly topical Mupirocin to lesions on left lateral neck and face Follow-up in one week. Sooner if symptoms worsen 09/14/2015 Appointment: June Flores WPtel: [address] [place] [address] ACUTE ILLNESS 09/14/2015 Patient Education: Patient Medication Summary Completed 09/14/2015 Visit Plan: Change bystolic to bedtime d osing and amlodopine to morning dosing Cryotherapy as above to AKs 09/07/2015 Appointment: María Elena Appiah WPtel: [address] [place] [address] 09/06 appointment made and confirmed ~ FOLLOW UP 09/07/2015 Patient Education: Patient Medication Summary Completed 09/07/2015 Visit Plan: Increase bystolic back to 20 mg daily but will split and take 10mg in AM and 10mg in PM Stress Reducers 08/18/2015 Appointment: María Elena Appiah WPtel: [address] [place] [address] 08/17/15 appt confirmed cn ACUTE ILLNESS 08/18 Patient Education: Patient Medication Summary Completed 08/18/2015 Appointment: María Elena Appiah WPtel: [address] [place] [address] BP CHECK 07/07/2015 Patient Education: Patient Medication Summary Completed 07/07/2015 Appointment: María Elena Appiah WPtel: [address] [place] [address] BP CHECK 06/24/2015 Patient Education: Patient Medication Summary Completed 06/24/2015 Appointment: María Elena Appiah WPtel: [address] [place] [address] BP CHECK 06/21/2015 Patient Education: Patient Medication Summary Completed 06/21/2015 Visit Plan: Lab discussed Continue curre nt meds and lifestyle modification Recheck lab in 6mos 06/16/2015 Appointment: María Elena Appiah WPtel: [address] [place] [address] 06/15 confirmed FOLLOW UP 06/16/2015 Patient Education: Patient Medication Summary Completed 06/16/2015 Patient Education: Patient Medication Summary Completed 06/15/2015 Visit Plan: Increase cymbalta to 60mg q HS Keep clonidine at current dose Recheck 2weeks Change xanax to klonopin 06/02/2015 Appointment: María Elena Appiah WPtel: [address] [place] [address] 06/02 lm FOLLOW UP 06/02/2015 Patient Education: Patient Medication Summary Completed 06/02/2015 Appointment: María Elena Appiah WPtel: [address] [place] [address] ACUTE ILLNESS 05/24/2015 Visit Plan: Increase clonidine to 0.2mg q HS Add cymbalta 30mg q HS Recheck 2weeks Stress Reducers Check fasting lab Discussed sleep study 05/20/2015 Appointment: María Elena Appiah WPtel: [address] [place] [address] ACUTE ILLNESS 05/20/2015 Patient Education: Patient Medication Summary Completed 05/20/2015 Patient Education: [facility] - Saving [employer] - Cymbalta - 18-64 - Dynamic Portal ID Completed 05/20/2015 Appointment: María Elena Appiah WPtel: [address] [place] [address] BP CHECK 05/19/2015 Patient Education: Patient Medication Summary Completed 05/19/2015 Visit Plan: Topical Bactroban alternatin g with topical betamethasone Recheck 2weeks 05/10/2015 Appointment: María Elena Appiah WPtel: [address] [place] [address] 05/07 vm cn...05/07 appt confirmed OFFICE SURGER Y 05/10/2015 Patient Education: Patient Medication Summary Completed 05/10/2015 Referral: Patrick Chandler WPtel: [facility] [address] Referral Initiated 05/04/2015 Visit Plan: Saline nasal flushes prn. Ty lenol/Motrin prn headache. Notify if persists/symptoms worsening. Depomedrol 40mg IM today 03/16/2015 Appointment: María Elena Appiah WPtel: [address] [place] [address] ACUTE ILLNESS 03/16/2015 Patient Education: Patient Medication Summary Completed 03/16/2015 Appointment: María Elena Appiah WPtel: [address] [place] [address] ER Follow UP 03/09/2015 Visit Plan: Cryotherapy to lesions as ab ove 10/27/2014 Appointment: María Elena Appiah WPtel: [address] [place] [address] OFFICE SURGERY 10/27/2014 Patient Education: Patient Medication Summary Completed 10/27/2014 Appointment: June Flores WPtel: [address] [place] [address] ACUTE ILLNESS 09/11/2014 Patient Education: Patient Medication Summary Completed 09/11/2014 Visit Plan: Lab discussed Lipitor 10mg d aily Coenzyme Q-10 400mg daily Vitamin D3 5000u daily Recheck lipids with LFTs in 3mos then fwup 08/31/2014 Appointment: María Elena Appiahtel: [address] [place], [place] [id number] 08/28 voicemail FOLLOW UP 08/31/2014 Patient Education: Patient Medication Summary Completed 08/31/2014 Appointment: María Elena Appiah WPtel: [address] [place], [place] [id number] LAB 08/27/2014 Appointment: María Elena Appiah WPtel: [address] [place] [address] [place] LAB 08/27/2014 Patient Education: Patient Medication Summary Completed 08/27/2014 Appointment: María Elena Appiahtel: [address] [place] [address] ACUTE ILLNESS 07/23/2014 Appointment: María Elena Appiah WPtel: [address] [place] [address] ACUTE ILLNESS 07/21/2014 Patient Education: Patient Medication Summary Completed 07/21/2014 Visit Plan: Kenalog 40mg IM today Contin ue narendra and singulair Add Flonase 07/15/2014 Appointment: María Elena Appiah WPtel: [address] [place] [address] ACUTE ILLNESS 07/15/2014 Appointment: María Elena Appiah WPtel: [address] [place] [address] ACUTE ILLNESS 07/15/2014 Patient Education: Patient Medication Summary Completed 07/15/2014 Visit Plan: Will do metolazone 2.5mg prn with 6 potassium and see if causes as severe cramping Trial of of seroquel XR 50mg q PM with evening meal and let us know how works 05/18/2014 Appointment: María Elena Appiah WPtel: [address] [place], [place] [phone] 05/15 left message FOLLOW UP 05/18/2014 Patient Education: Patient Medication Summary Completed 05/18/2014 Appointment: María Elena Appiah WPtel: [address] [place], [place] [phone] [place] LAB 05/14/2014 Patient Education: Patient Medication Summary Completed 05/14/2014 Appointment: María Elena Appiah WPtel: [address] [place], [place] [phone] [place] INJECTION 04/22/2014 Visit Plan: Tisha and Miranda today a nd finish abx given from urgent care 04/21/2014 Appointment: María Elena Appiah WPtel: [address] [place] [phone] [place] INJECTION 04/21/2014 Patient Education: Patient Medication Summary Completed 04/21/2014 Appointment: June Flores WPtel: [address] [place] [address] ACUTE ILLNESS 03/04/2014 Patient Education: Patient Medication Summary Completed 03/04/2014 Appointment: María Elena Appiah WPtel: [address] [place], [place] [phone] [place] INJECTION 02/27/2014 Patient Education: Patient Medication Summary Completed 02/27/2014 Visit Plan: Cryotherapy as above to all lesions Patient wants to try no meds for insomnia for a while and see how goes 01/13/2014 Appointment: María Elena Appiah WPtel: [address] [place] [phone] OFFICE SURGERY 01/13/2014 Patient Education: Patient Medication Summary Completed 01/13/2014 Visit Plan: Stop Melatonin Stop Soma Tri al of trazadone 75mg q HS See ENT for possible tubes as has had chronic ETD and serous otitis media with numerous steroids 12/24/2013 Appointment: María Elena Appiah WPtel: [address] [place], [place] [phone] ACUTE ILLNESS 12/24/2013 Patient Education: Patient Medication Summary Completed 12/24/2013 Visit Plan: Saline nasal flushes prn. Ty lenol/Motrin prn headache. Notify if persists/symptoms worsening. 11/12/2013 Appointment: María Elena Appiah WPtel: [address] [place] [address] ACUTE ILLNESS 11/12/2013 Patient Education: Patient Medication Summary Completed 11/12/2013 Appointment: María Elena Appiah WPtel: [address] [place] [address] ACUTE ILLNESS 10/21/2013 Patient Education: Patient Medication Summary Completed 10/21/2013 Visit Plan: Sleep hygiene and sleep rout ine Melatonin 10mg q HS Support stockings and observe 09/22/2013 Appointment: María Elena Appiah WPtel: [address] [place] [address] ACUTE ILLNESS 09/22/2013 Patient Education: Patient Medication Summary Completed 09/22/2013 Appointment: June Flores WPtel: [address] [place] [address] ACUTE ILLNESS 08/27/2013 Patient Education: Patient Medication Summary Completed 08/27/2013 Visit Plan: Proceed with CT scan of head /neck Proceed with occipital nerve injections Butrans 20mcg patch weekly until can get into see Dr. Mcdonough for injections 08/04/2013 Appointment: María Elena Appiah WPtel: [address] [place] [address] FOLLOW UP 08/04/2013 Patient Education: Patient Medication Summary Completed 08/04/2013 Visit Plan: OMT done Daily neck stretche s, moist heat Increase Celebrex to 200mg BID Add flexeril 07/23/2013 Appointment: María Elena Appiah WPtel: [address] [place] [address] 07/22 voicemail FOLLOW UP 07/23/2013 Patient Education: Patient Medication Summary Completed 07/23/2013 Appointment: María Elena Appiah WPtel: [address] [place] [address] ACUTE ILLNESS 06/23/2013 Patient Education: Patient Medication Summary Completed 06/23/2013 Appointment: María Elena Appiah WPtel: [address] [place] [address] ACUTE ILLNESS 05/26/2013 Patient Education: Patient Medication Summary Completed 05/26/2013 Visit Plan: Decrease clonidine to 0.1mg TID If BP remains stable consider decreasing amlodopine Prednisone for 5 days BP check in 1mo 04/16/2013 Appointment: María Elena Appiah WPtel: [address] [place] [address] 04/14 pt called and confirmed appt FOLLOW UP 04/16/2013 Patient Education: Patient Medication Summary Completed 04/16/2013 Appointment: María Elena Appiah WPtel: [address] [place] [address] ACUTE ILLNESS 03/05/2013 Patient Education: Patient Medication Summary Completed 03/05/2013 Visit Plan: Pt has MARIA ELENA on with Dr. Mcdonough Continue Butrans patch Refill Hydrocodone early tomorrow 12/23/2012 Appointment: María Elena Appiah WPtel: [address] [place] [address] FOLLOW UP 12/23/2012 Patient Education: Patient Medication Summary Completed 12/23/2012 Appointment: Lashawn Eckert WPtel: [address] [place] [address] ACUTE ILLNESS 12/16/2012 Patient Education: Patient Medication Summary Completed 12/16/2012 Visit Plan: Proceed with updated MRI of LS spine Continue gabapentin and add soma and diclofenac Will likely need to go for another epidural 12/09/2012 Appointment: María Elena Appiah WPtel: [address] [place] [address] ACUTE ILLNESS 12/09/2012 Patient Education: Patient Medication Summary Completed 12/09/2012 Visit Plan: Injection as above Finish me drol dose pack Chiropracter this afternoon 12/04/2012 Appointment: María Elena Appiah WPtel: [address] [place] [address] ACUTE ILLNESS 12/04/2012 Patient Education: Patient Medication Summary Completed 12/04/2012 Appointment: Mary Tillman WPtel: [address] [place] [address] FOLLOW UP 11/22/2012 Patient Education: Patient Medication Summary Completed 11/22/2012 Appointment: María Elena Appiah WPtel: [address] [place] [address] ACUTE ILLNESS 11/21/2012 Patient Education: Patient Medication Summary Completed 11/21/2012 Appointment: María Elena Appiah WPtel: [address] [place] [address] BP CHECK 11/07/2012 Patient Education: Patient Medication Summary Completed 11/07/2012 Visit Plan: reports extra clonidine and extra amlodipine and extra alprazalam. extra Ketolorac and promethazine last night. Bystolic 10 mg QAM and will continue all other blood pressure meds. Pt. encouraged to rest and hydrate. Discussed stroke and MT symptoms. Pt. instructed to seek ER eval if symptoms worsen or headache persists. Pt. agrees to ER eval/EMS transport if symptoms worsen. BP re-check. 10/29/2012 Appointment: Lashawn Eckert WPtel: [address] [place] [address] ACUTE ILLNESS 10/29/2012 Patient Education: Patient Medication Summary Completed 10/29/2012 Appointment: María Elena Appiah WPtel: [address] [place] [address] ACUTE ILLNESS 10/14/2012 Patient Education: Patient Medication Summary Completed 10/14/2012 Appointment: María Elena Appiah WPtel: [address] [place] [address] UA 09/27/2012 Patient Education: Patient Medication Summary Completed 09/27/2012 Appointment: María Elena Appiah WPtel: [address] [place], [place] [phone] ACUTE ILLNESS 09/25/2012 Patient Education: Patient Medication Summary Completed 09/25/2012 Appointment: María Elena Appiah WPtel: [address] [place], [place] [phone] BP CHECK 09/24/2012 Appointment: María Elena Appiah WPtel: [address] [place], [place] [phone] ACUTE ILLNESS 08/29/2012 Patient Education: Patient Medication Summary Completed 08/29/2012 Visit Plan: Cryotherapy as above See Karlos m for right ear lesion--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 ACUTE ILLNESS 05/06/2012 Patient Education: Patient Medication Summary Completed 05/06/2012 Visit Plan: Pt wants to hold on any furt her sleep medications 04/03/2012 Appointment: María Elena Appiah WPtel: [address] [place], [place] [phone] FOLLOW UP 04/03/2012 Patient Education: Patient Medication Summary Completed 04/03/2012 Appointment: María Elena Appiah WPtel: [address] [place], [place] [phone] FOLLOW UP 03/19/2012 Patient Education: Patient Medication Summary Completed 03/19/2012 Appointment: María Elena Appiah WPtel: [address] [place] [address] BP CHECK 02/22/2012 Patient Education: Patient Medication Summary Completed 02/22/2012 Appointment: María Elena Appiah WPtel: [address] [place] [address] BP CHECK 02/21/2012 Patient Education: Patient Medication Summary Completed 02/21/2012 Visit Plan: Doxycycline and bactroban fo r foot Supportive care on ankles and knees Add norvasc for BP 02/20/2012 Appointment: María Elena Appiah WPtel: [address] [place] [address] ER Follow UP 02/20/2012 Patient Education: Patient Medication Summary Completed 02/20/2012 Appointment: María Elena Appiah WPtel: [address] [place] [address] ACUTE ILLNESS 01/30/2012 Patient Education: Patient Medication Summary Completed 01/30/2012 Appointment: María Elena Appiah WPtel: [address] [place] [address] ACUTE ILLNESS 01/24/2012 Patient Education: Patient Medication Summary Completed 01/24/2012 Visit Plan: Daily back stretches, moist heat, Biofreeze prn OMT done 01/10/2012 Appointment: María Elena Appiah WPtel: [address] [place] [address] ACUTE ILLNESS 01/10/2012 Patient Education: Patient Medication Summary Completed 01/10/2012 Appointment: María Elena Appiah WPtel: [address] [place] [address] FOLLOW UP 12/11/2011 Patient Education: Patient Medication Summary Completed 12/11/2011 Appointment: María Elena Appiah WPtel: [address] [place] [address] ACUTE ILLNESS 11/09/2011 Patient Education: Patient Medication Summary Completed 11/09/2011 Appointment: María Elena Appiahtel: [address] [place] [address] ACUTE ILLNESS 09/13/2011 Patient Education: Patient Medication Summary Completed 09/13/2011 Visit Plan: Check CBC, TSH, Free T4, CMP , ESR, Vit D, B12 now Start Prednisone today 08/31/2011 Appointment: María Elena Appiahtel: [address] [place] [address] ACUTE ILLNESS 08/31/2011 Patient Education: Patient Medication Summary Completed 08/31/2011 Appointment: María Elena Appiahtel: [address] [place] [address] [place] INJECTION 07/20/2011 Patient Education: Patient Medication Summary Completed 07/20/2011 Visit Plan: Continue current meds Monite r BP Cont stretches from PT 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 07/06/2011 Appointment: María Elena Appiahtel: [address] [place] [address] FOLLOW UP 07/06/2011 Patient Education: Patient Medication Summary Completed 07/06/2011 Appointment: María Elena Appiahtel: [address] [place] [address] BP CHECK 06/06/2011 Patient Education: Patient Medication Summary Completed 06/06/2011 Visit Plan: Add Bystolic at 2.5mg QAM Ad d Robaxin 750mg 2 po q HS BP check in 2wks 05/22/2011 Appointment: María Elena Appiah WPtel: [address] [place] [address] FOLLOW UP 05/22/2011 Patient Education: Patient Medication Summary Completed 05/22/2011 Appointment: María Elena Appiah WPtel: [address] [place] [address] ER Follow UP 05/09/2011 Patient Education: Patient Medication Summary Completed 05/09/2011 Appointment: María Elena Appiah WPtel: [address] [place] [address] [place] FOLLOW UP 02/22/2011 Visit Plan: Rx written for Hydrocodone 1 0/325mg #240 See Ortho 02/14/2011 Appointment: María Elena Appiah WPtel: [address] [place] [address] [place] OMT 02/14/2011 Patient Education: Patient Medication [...] work. 02/03/2011 Appointment: Lashawn Eckert WPtel: [address] [place] [address] ACUTE ILLNESS 02/03/2011 Patient Education: Patient Medication Summary Completed 02/03/2011 Visit Plan: OMT done Cont daily stretche s 01/31/2011 Appointment: María Elena Appiah WPtel: [address] [place] [address] ACUTE ILLNESS 01/31/2011 Patient Education: Patient Medication Summary Completed 01/31/2011 Visit Plan: Continue pain meds OMT done Proceed with PT No work this summer01/25/2011 Appointment: María Elena Appiah WPtel: [address] [place] [address] ACUTE ILLNESS 01/25/2011 Patient Education: Patient Medication Summary Completed 01/25/2011 Visit Plan: Start PT Long discussion abo ut getting pain meds from only us and can only have max of 4grams of tylenol per day Change to Hydrocodone 10/325mg 1- 2 po TID prn pain--#180 called to Radha 01/18/2011 Appointment: María Elena Appiahtel: [address] [place], [place] [id number] FOLLOW UP 01/18/2011 Patient Education: Patient Medication Summary Completed 01/18/2011 Visit Plan: Daily back stretches, moist heat, Biofreeze prn 11/29/2010 Appointment: María Elena Appiah WPtel: [address] [place] [address] ER Follow UP 11/29/2010 Patient Education: Patient Medication Summary Completed 11/29/2010 Visit Plan: Saline nasal flushes prn. Ty lenol/Motrin prn headache. Notify if persists/symptoms worsening. Finish augmentin Add Medrol Dose Pack 10/10/2010 Appointment: María Elena Appiahtel: [address] [place] [address] ACUTE ILLNESS 10/10/2010 Patient Education: Patient Medication Summary Completed 10/10/2010 Visit Plan: Cryotherapy x3 to multiple l esions on both forearms 07/19/2010 Appointment: María Elena Appiahtel: [address] [place] [address] OFFICE SURGERY 07/19/2010 Patient Education: Patient Medication Summary Completed 07/19/2010 Appointment: María Elena Appiahtel: [address] [place], [place] [id number] BP CHECK 07/06/2010 Patient Education: Patient Medication Summary Completed 07/06/2010 Appointment: María Elena Appiahtel: [address] [place] [address] BP CHECK 06/30/2010 Patient Education: Patient Medication Summary Completed 06/30/2010 Appointment: María Elena Appiah WPtel: [address] [place] [address] BP CHECK 06/20/2010 Patient Education: Patient Medication Summary Completed 06/20/2010 Visit Plan: Change Diovan to Exforge 160 /5mg QD OMT done to thoracics BP check in 2wks 06/07/2010 Appointment: María Elena Appiah WPtel: [address] [place] [address] FOLLOW UP 06/07/2010 Patient Education: Patient Medication Summary Completed 06/07/2010 Appointment: María Elena Appiah WPtel: [address] [place] [address] BP CHECK 06/03/2010 Patient Education: Patient Medication Summary Completed 06/03/2010 Appointment: María Elena Appiah WPtel: [address] [place] [address] BP CHECK 06/01/2010 Patient Education: Patient Medication Summary Completed 06/01/2010 Visit Plan: Irritated skin tags to left neck x2 excised at base with scissors and base cauterized 05/30/2010 Appointment: María Elena Appiah WPtel: [address] [place] [address] OFFICE SURGERY 05/30/2010 Patient Education: Patient Medication Summary Completed 05/30/2010 Visit Plan: Saline nasal flushes prn. Ty lenol/Motrin prn headache. Notify if persists/symptoms worsening. Restart Nasonex Has allergy testing set for May 25 04/27/2010 Appointment: María Elena Appiah WPtel: [address] [place], [place] [id number] ACUTE ILLNESS 04/27/2010 Patient Education: Patient Medication Summary Completed 04/27/2010 Visit Plan: Saline nasal flushes prn. Ty lenol/Motrin prn headache. Notify if persists/symptoms worsening. Omnaris BID plus injections 04/05/2010 Appointment: María Elena Appiah WPtel: [address] [place] [address] ACUTE ILLNESS 04/05/2010 Patient Education: Patient Medication Summary Completed 04/05/2010 Visit Plan: Saline nasal flushes prn. Ty lenol/Motrin prn headache. Notify if persists/symptoms worsening. 03/09/2010 Appointment: María Elena Appiah WPtel: [address] [place], [place] [id number] ACUTE ILLNESS 03/09/2010 Patient Education: Patient Medication Summary Completed 03/09/2010 Visit Plan: Cont Clonidine as is Cont Pr emarin Fwup with surgery as scheduled 03/03/2010 Appointment: María Elena Appiah WPtel: [address] [place], [place] [id number] FOLLOW UP 03/03/2010 Patient Education: Patient Medication Summary Completed 03/03/2010 Visit Plan: Check Pelvic US now Chelsey Sal C vs Hysterectomy 01/17/2010 Appointment: María Elena Appiah WPtel: [address] [place], [place] [id number] ACUTE ILLNESS 01/17/2010 Patient Education: Patient Medication Summary Completed 01/17/2010 Visit Plan: Check fasting lab and schedu le Mammogram 2gm Na Diet Trial of Ambien 10mg qhs Fwup pending lab results 12/27/2009 Appointment: María Elena Appiah WPtel: [address] [place], [place] [id number] ESTABLISHED PATIENT 12/27/2009 Patient Education: Patient Medication Summary Completed 12/27/2009 Referral: Canelo Overton WPtel: [address] [id number] [place] Referral Initiated Referral: Philipp Flores WPtel: [address] [id number] [place] Referral Appointment Requested Instructions Comment . [...] to rest and hydrate. Discussed stroke and MT symptoms. Pt. instructed to seek ER eval [...]
--- OUTSIDE RECORDS SUMMARY | 2020-03-13 04:53 | XMS REPORT | CCD ---
Author Author Gale Appiah D.O. Organization [facility] Address [address] [place] [id number] Phone Care Team Providers Care Screw Remover Name Role Phone María Elena Appiah D.O., PP Unavailable CCM Unavailable Summary Purpose Interface Exchange Insurance Providers Payer name Policy type / Coverage type Covered green party ID Effective Begin Date Effective End Date [facility] Commercial Insurance [id number] Unknown Family History Family History data not found Social History Social History Element Codes Description Effective Dates Tobacco history SNOMED CT: [id number] Never smoker 05/22/2011 Allergies, Adverse Reactions, Alerts [...] Start Date Stop Date Status Fill Instructions glimepiride 4 mg tablet RxNorm: 137439 1 Tablet(s) Oral two times a day replaces 2mg dose 01/13/2020 04/12/2020 Active lisinopril 40 mg tablet RxNorm: 767090 1 Tablet(s) Oral QD repl aces 20mg dose 01/13/2020 04/12/2020 Active hydrocodone 10 mg-acetaminophen 325 mg tablet RxNorm: 635571 1-2 Tablet(s) Oral three times a day as needed for pain 01/12/2020 No Stop Date Active cyclobenzaprine 10 mg tablet RxNorm: 154717 TAKE ONE TA BLET BY MOUTH THREE TIMES A DAY NEEDED FOR MUSCLE SPASMS 01/05/2020 No Stop Date Active triamterene 75 mg-hydrochlorothiazide 50 mg tablet RxNorm: 3 25142 TAKE ONE TABLET BY MOUTH DAILY 12/29/2019 No Stop Date Active Klor-Con 8 mEq tablet,extended release RxNorm: 175891 T FARRUKH ONE TABLET BY MOUTH TWICE A DAY 12/19/2019 No Stop Date Active allopurinol 300 mg tablet RxNorm: 259717 TAKE ONE TABLET BY LOPEZ TH DAILY 12/19/2019 No Stop Date Active glimepiride 2 mg tablet RxNorm: 472473 TAKE ONE TABLET BY MOUTH TWICE A DAY 12/19/2019 01/12/2020 Inactive hydrocodone 10 mg-acetaminophen 325 mg tablet RxNorm: 432209 1-2 Tablet(s) Oral three times a day as needed for pain 12/10/2019 01/11/2020 Inactive Januvia 100 mg tablet RxNorm: 958512 1 Tablet(s) Oral QD 11/20/2019 0 11/20/2019 Inactive glimepiride 2 mg tablet RxNorm: 380510 1 Tablet(s) Oral two sawyer es a day 11/20/2019 12/18/2019 Inactive cyclobenzaprine 10 mg tablet RxNorm: 152767 TAKE ONE TA BLET BY MOUTH THREE TIMES A DAY NEEDED FOR MUSCLE SPASMS 11/17/2019 01/04/2020 Inactive doxepin 25 mg capsule RxNorm: 1129951 TAKE ONE CAPSULE B Y MOUTH EVERY NIGHT AT BEDTIME NEEDED FOR SLEEP 11/16/2019 No Stop Date Active Klor-Con 8 mEq tablet,extended release RxNorm: 812185 T FARRUKH ONE TABLET BY MOUTH TWICE A DAY 11/16/2019 12/18/2019 Inactive hydrocodone 10 mg-acetaminophen 325 mg tablet RxNorm: 731260 1-2 Tablet(s) Oral three times a day as needed for pain 11/10/2019 12/09/2019 Inactive cyclobenzaprine 10 mg tablet RxNorm: 158492 TAKE ONE TA BLET BY MOUTH THREE TIMES A DAY NEEDED FOR MUSCLE SPASMS 10/23/2019 11/16/2019 Inactive duloxetine 60 mg capsule,delayed release RxNorm: 215987 1 Capsu le(s) Oral QD 10/17/2019 04/13/2020 Active celecoxib 200 mg capsule RxNorm: 704744 1 Capsule(s) Or al two times a day as needed for pain 10/17/2019 01/14/2020 Active gabapentin 300 mg capsule RxNorm: 303187 1 Capsule(s) O ral every night at bedtime 10/17/2019 01/15/2020 Active Singulair 10 mg tablet RxNorm: 830370 1 Tablet(s) Oral QD 10/17/2019 04/14/2020 Active metoprolol tartrate 100 mg tablet RxNorm: 666171 1 Tabl et(s) Oral two times a day 10/17/2019 04/13/2020 Active clonidine HCl 0.1 mg tablet RxNorm: 745693 1 Tablet(s) Oral fou r times a day 10/17/2019 04/13/2020 Active Lipitor 10 mg tablet RxNorm: 760650 1 Tablet(s) Oral QD 10/17/2019 Active Steglatro 15 mg tablet RxNorm: 9768118 1 Tablet(s) Oral QD 10/17/19 No Stop Date Active lisinopril 20 mg tablet RxNorm: 130063 1 Tablet(s) Oral QD 10/17/19 20 01/12/2020 Inactive Klor-Con 8 mEq tablet,extended release RxNorm: 025311 1 Tablet(s) Oral two times a day 10/17/2019 11/15/2019 Inactive Januvia 100 mg tablet RxNorm: 316264 1 Tablet(s) Oral QD 10/17/2019 0 01/12/2020 Inactive Glyxambi 25 mg-5 mg tablet RxNorm: 3089426 1 Tablet(s) Oral QD 01/202010/16/2019 Inactive Patient will bring in copay discount card as well Glyxambi 25 mg-5 mg tablet RxNorm: 6587198 1 Tablet(s) Oral QD 01/202010/14/2019 Inactive Patient will bring in copay discount card as well Keflex 500 mg capsule RxNorm: 744783 1 Capsule(s) Oral two time s a day 10/07/2019 10/14/2019 Inactive Premarin 1.25 mg tablet RxNorm: 804294 1 Tablet(s) Oral QD 09/30/19 20 06/25/2020 Active hydrocodone 10 mg-acetaminophen 325 mg tablet RxNorm: 919184 1-2 Tablet(s) Oral three times a day as needed for pain 09/30/2019 09/30/2019 Inactive baclofen 10 mg tablet RxNorm: 521670 TAKE ONE TABLET BY MOUTH THREE TIMES A DAY NEEDED 09/19/2019 No Stop Date Active gabapentin 300 mg capsule RxNorm: 533622 TAKE ONE CAPSU LE BY MOUTH EVERY NIGHT AT BEDTIME 09/19/2019 10/16/2019 Inactive Klor-Con 8 mEq tablet,extended release RxNorm: 820199 T FARRUKH ONE TABLET BY MOUTH TWICE A DAY 1 Tablet(s) Oral two times a day 09/19/2019 10/16/2019 Renu ctive hydrocodone 10 mg-acetaminophen 325 mg tablet RxNorm: 058047 1-2 Tablet(s) Oral three times a day as needed for pain 09/19/2019 09/29/2019 Inactive duloxetine 60 mg capsule,delayed release RxNorm: 964706 TAKE ONE CAPSULE BY MOUTH DAILY 09/11/2019 10/16/2019 Inactive Lipitor 10 mg tablet RxNorm: 265139 TAKE ONE TABLET BY MOUTH AT BEDTIME 09/11/2019 10/16/2019 Inactive lisinopril 20 mg tablet RxNorm: 392741 TAKE ONE TABLET BY MOUTH DAILY .... THIS REPLACE 10MG TABLETS 09/11/2019 10/16/2019 Inactive triamterene 75 mg-hydrochlorothiazide 50 mg tablet RxNorm: 3 22893 TAKE ONE TABLET BY MOUTH DAILY 09/11/2019 12/28/2019 Inactive allopurinol 300 mg tablet RxNorm: 772317 TAKE ONE TABLET BY LOPEZ TH DAILY 09/11/2019 12/18/2019 Inactive celecoxib 200 mg capsule RxNorm: 084554 TAKE ONE CAPSUL E BY MOUTH TWICE A DAY NEEDED FOR PAIN 09/11/2019 10/16/2019 Inactive clonidine HCl 0.1 mg tablet RxNorm: 498564 TAKE ONE TAB LET BY MOUTH FOUR TIMES A DAY 09/11/2019 10/16/2019 Inactive doxepin 25 mg capsule RxNorm: 3362945 1 Capsule(s) Oral every night at bedtime as needed for sleep 08/21/2019 11/15/2019 Inactive hydrocodone 10 mg-acetaminophen 325 mg tablet RxNorm: 137034 1-2 Tablet(s) PO TID 08/12/2019 09/29/2019 Inactive as needed for pa in - Previous quantity #240, will start dosing for #180 in April 2011 per Doctor Td. Medrol (Dustin) 4 mg tablets in a dose pack RxNorm: 500304 Tablet(s) Oral As Directed 07/21/2019 09/29/2019 Inactive Premarin 1.25 mg tablet RxNorm: 467763 1 Tablet(s) Oral QD 07/02/2009/29/2019 Inactive hydrocodone 10 mg-acetaminophen 325 mg tablet RxNorm: 519475 1-2 Tablet(s) PO TID 07/01/2019 08/11/2019 Inactive as needed for pa in - Previous quantity #240, will start dosing for #180 in April 2011 per Doctor Td. gabapentin 300 mg capsule RxNorm: 037021 1 Capsule(s) PO QHS 201809/18/2019 Inactive celecoxib 200 mg capsule RxNorm: 195616 1 Capsule(s) Or al two times a day as needed for pain 06/27/2019 06/27/2019 Inactive doxepin 25 mg capsule RxNorm: 7074385 TAKE ONE CAPSULE B Y MOUTH EVERY NIGHT AT BEDTIME NEEDED FOR SLEEP 06/24/2019 08/20/2019 Inactive Singulair 10 mg tablet RxNorm: 188987 TAKE ONE TABLET BY MOUTH JOSÉ Y 06/24/2019 10/16/2019 Inactive furosemide 40 mg tablet RxNorm: 247589 TAKE ONE TABLET BY MOUTH EVERY MORNING NEEDED FOR EDEMA . TAKE WITH POTASSIUM 06/24/2019 01/12/2020 Inactive lisinopril 20 mg tablet RxNorm: 558097 TAKE ONE TABLET BY MOUTH DAILY .... THIS REPLACE 10MG TABLETS 06/24/2019 09/10/2019 Inactive nystatin-triamcinolone 100,000 unit/g-0.1 % topical cream Rx Norm: 9466081 1 Application Topical two times a day 06/12/2019 06/19/2019 Inactive apply BID for 1 week nystatin-triamcinolone 100,000 unit/g-0.1 % topical cream Rx Norm: 0625720 1 Application Topical two times a day 06/12/2019 06/11/2019 Inactive apply BID for 1 week hydrocodone 10 mg-acetaminophen 325 mg tablet RxNorm: 209918 1-2 Tablet(s) PO QID as needed for pain MUST LAST 30 DAYS 05/28/2019 06/26/2019 Inactiv e (Response to an electronic controlled substance refill request - RxReferenceNumber: [id number]) baclofen 20 mg tablet RxNorm: 559605 1 Tablet(s) PO TID as needed for muscle spasm 05/19/2019 05/27/2019 Inactive gabapentin 300 mg capsule RxNorm: 599121 1 Capsule(s) PO QHS 201805/27/2019 Inactive lisinopril 20 mg tablet RxNorm: 593180 1 Tablet(s) PO Q D TAKE ONE TABLET BY MOUTH DAILY, REPLACES 10 MG DOSE 05/19/2019 06/23/2019 Inactive doxepin 25 mg capsule RxNorm: 8733645 TAKE ONE CAPSULE B Y MOUTH EVERY NIGHT AT BEDTIME NEEDED FOR SLEEP 05/16/2019 06/14/2019 Inactive lisinopril 20 mg tablet RxNorm: 033767 TAKE ONE TABLET BY MOUTH DAILY, REPLACES 10 MG DOSE 05/16/2019 05/18/2019 Inactive Singulair 10 mg tablet RxNorm: 031651 TAKE ONE TABLET BY MOUTH JOSÉ Y 05/16/2019 06/14/2019 Inactive gabapentin 300 mg capsule RxNorm: 862330 1 Capsule(s) PO QHS 201805/04/2019 Inactive estropipate 1.5 mg tablet RxNorm: 287477 1 Tablet(s) PO QD 05/05/2005/27/2019 Inactive estropipate 1.5 mg tablet RxNorm: 610202 1 Tablet(s) PO QD 05/05/20 19 05/04/2019 Inactive gabapentin 300 mg capsule RxNorm: 265284 1 Capsule(s) PO QHS 201805/18/2019 Inactive hydrocodone 10 mg-acetaminophen 325 mg tablet RxNorm: 583201 1-2 Tablet(s) PO QID as needed for pain MUST LAST 30 DAYS 04/25/2019 05/24/2019 Inactiv e (Response to an electronic controlled substance refill request - RxReferenceNumber: [id number]) cyclobenzaprine 10 mg tablet RxNorm: 178544 TAKE ONE TA BLET BY MOUTH THREE TIMES A DAY NEEDED FOR MUSCLE SPASMS 04/24/2019 05/18/2019 Inactive metoprolol tartrate 100 mg tablet RxNorm: 823181 TAKE O NE TABLET BY MOUTH TWICE A DAY 04/24/2019 10/16/2019 Inactive Lyrica 75 mg capsule RxNorm: 077568 1 Capsule(s) PO QHS 03/25/2019 Inactive duloxetine 60 mg capsule,delayed release RxNorm: 713237 TAKE ONE CAPSULE BY MOUTH DAILY 03/21/2019 05/19/2019 Inactive triamterene 75 mg-hydrochlorothiazide 50 mg tablet RxNorm: 3 89699 TAKE ONE TABLET BY MOUTH DAILY 03/21/2019 05/19/2019 Inactive Klor-Con 8 mEq tablet,extended release RxNorm: 986678 T FARRUKH ONE TABLET BY MOUTH TWICE A DAY 03/21/2019 09/18/2019 Inactive Lipitor 10 mg tablet RxNorm: 724290 TAKE ONE TABLET BY MOUTH AT BEDTIME 03/21/2019 09/10/2019 Inactive clonidine HCl 0.1 mg tablet RxNorm: 046463 TAKE ONE TAB LET BY MOUTH FOUR TIMES A DAY 03/21/2019 05/19/2019 Inactive allopurinol 300 mg tablet RxNorm: 306720 TAKE ONE TABLET BY LOPEZ TH DAILY 03/21/2019 05/19/2019 Inactive hydrocodone 10 mg-acetaminophen 325 mg tablet RxNorm: 614563 1-2 Tablet(s) PO QID as needed for pain MUST LAST 30 DAYS 02/28/2019 03/29/2019 Inactiv e (Response to an electronic controlled substance refill request - RxReferenceNumber: [id number]) furosemide 40 mg tablet RxNorm: 442669 TAKE ONE TABLET BY MOUTH EVERY MORNING NEEDED FOR EDEMA . TAKE WITH POTASSIUM 02/21/2019 03/22/2019 Inactive cyclobenzaprine 10 mg tablet RxNorm: 054876 TAKE ONE TA BLET BY MOUTH THREE TIMES A DAY NEEDED FOR MUSCLE SPASMS 02/21/2019 04/21/2019 Inactive lisinopril 20 mg tablet RxNorm: 724105 TAKE ONE TABLET BY MOUTH DAILY, REPLACES 10 MG DOSE 02/21/2019 05/15/2019 Inactive doxepin 25 mg capsule RxNorm: 7275373 TAKE ONE CAPSULE B Y MOUTH EVERY NIGHT AT BEDTIME NEEDED FOR SLEEP 02/21/2019 05/15/2019 Inactive nystatin 100,000 unit/gram topical cream RxNorm: 938989 APPLY TO AFFECTED AREA(S) TWO TIMES A DAY 02/21/2019 03/22/2019 Inactive estradiol 1 mg tablet RxNorm: 749883 2 Tablet(s) PO QD replaces premarin 01/22/2019 05/04/2019 Inactive lisinopril 20 mg tablet RxNorm: 809405 TAKE ONE TABLET BY MOUTH DAILY, REPLACES 10 MG DOSE 01/20/2019 02/18/2019 Inactive cyclobenzaprine 10 mg tablet RxNorm: 926414 TAKE ONE TA BLET BY MOUTH THREE TIMES A DAY NEEDED FOR MUSCLE SPASMS 01/20/2019 02/18/2019 Inactive metoprolol tartrate 100 mg tablet RxNorm: 283982 TAKE O NE TABLET BY MOUTH TWICE A DAY 01/20/2019 02/18/2019 Inactive cyclobenzaprine 10 mg tablet RxNorm: 819119 TAKE ONE TA BLET BY MOUTH THREE TIMES A DAY NEEDED FOR MUSCLE SPASMS 12/19/2018 01/17/2019 Inactive lisinopril 20 mg tablet RxNorm: 876027 TAKE ONE TABLET BY MOUTH DAILY, REPLACES 10 MG DOSE 12/19/2018 01/17/2019 Inactive duloxetine 60 mg capsule,delayed release RxNorm: 275949 TAKE ONE CAPSULE BY MOUTH DAILY 12/19/2018 01/17/2019 Inactive Lipitor 10 mg tablet RxNorm: 603359 TAKE ONE TABLET BY MOUTH AT BEDTIME 12/19/2018 01/17/2019 Inactive cyclobenzaprine 10 mg tablet RxNorm: 774931 1 Tablet(s) PO TID as needed for muscle spasm 11/19/2018 12/18/2018 Inactive Singulair 10 mg tablet RxNorm: 904774 1 Tablet(s) PO QD 11/19/2018 Inactive lisinopril 20 mg tablet RxNorm: 622871 TAKE ONE TABLET BY MOUTH DAILY, REPLACES 10 MG DOSE 11/15/2018 12/18/2018 Inactive hydrocodone 10 mg-acetaminophen 325 mg tablet RxNorm: 945760 1-2 Tablet(s) PO QID as needed for pain MUST LAST 30 DAYS 11/13/2018 12/12/2018 Inactiv e (Response to an electronic controlled substance refill request - RxReferenceNumber: [id number]) nystatin 100,000 unit/gram topical cream RxNorm: 613131 APPLY TO AFFECTED AREA(S) TWO TIMES A DAY 10/23/2018 11/06/2018 Inactive lisinopril 20 mg tablet RxNorm: 926065 1 Tablet(s) PO QD replac es 10mg dose 10/18/2018 11/14/2018 Inactive hydrocodone 10 mg-acetaminophen 325 mg tablet RxNorm: 448621 1-2 Tablet(s) QID as needed for pain MUST LAST 30 DAYS 10/08/2018 11/06/2018 Inactive (Response to an electronic controlled substance refill request - RxReferenceNumber: [id number]) lisinopril 10 mg tablet RxNorm: 819802 1 Tablet(s) PO QD 10/03/2018 0 01/21/2019 Inactive Celebrex 200 mg capsule RxNorm: 751271 TAKE ONE CAPSULE BY MOUT H TWICE A DAY 09/30/2018 05/04/2019 Inactive cyclobenzaprine 10 mg tablet RxNorm: 176734 TAKE ONE TA BLET BY MOUTH THREE TIMES A DAY NEEDED FOR MUSCLE SPASMS 09/30/2018 11/18/2018 Inactive doxepin 25 mg capsule RxNorm: 1972705 TAKE ONE CAPSULE B Y MOUTH EVERY NIGHT AT BEDTIME NEEDED 09/05/2018 10/16/2018 Inactive omeprazole 40 mg capsule,delayed release RxNorm: 087793 TAKE ONE CAPSULE BY MOUTH DAILY 09/05/2018 01/21/2019 Inactive furosemide 40 mg tablet RxNorm: 901816 TAKE ONE TABLET BY MOUTH EVERY MORNING NEEDED FOR EDEMA . TAKE WITH POTASSIUM 09/05/2018 11/03/2018 Inactive phentermine 37.5 mg tablet RxNorm: 100854 1 Tablet(s) PO QAM 201701/21/2019 Inactive doxepin 25 mg capsule RxNorm: 8156495 1 Capsule(s) PO QH S as needed for sleep TAKE ONE CAPSULE BY MOUTH EVERY NIGHT AT BEDTIME NEEDED 08/27/2018 09/04/2018 Inactive Keflex 500 mg capsule RxNorm: 531398 1 Capsule(s) PO TID 08/09/2018 1 10/19/2017 Inactive Diflucan 100 mg tablet RxNorm: 185422 1 Tablet(s) PO QD 08/09/2018 Inactive Premarin 1.25 mg tablet RxNorm: 337840 2 Tablet(s) PO QD 08/09/2018 0 05/04/2019 Inactive Zofran ODT 4 mg disintegrating tablet RxNorm: 983902 1 Tablet(s) PO Q4H as needed for nausea 08/09/2018 01/21/2019 Inactive metoprolol tartrate 100 mg tablet RxNorm: 601743 TAKE O NE TABLET BY MOUTH TWICE A DAY 2018 10/04/2018 Inactive doxepin 25 mg capsule RxNorm: 5465890 TAKE ONE CAPSULE B Y MOUTH EVERY NIGHT AT BEDTIME NEEDED 2018 08/26/2018 Inactive cyclobenzaprine 10 mg tablet RxNorm: 003278 TAKE ONE TA BLET BY MOUTH THREE TIMES A DAY NEEDED FOR MUSCLE SPASMS 2018 09/29/2018 Inactive hydrocodone 10 mg-acetaminophen 325 mg tablet RxNorm: 957335 1-2 Tablet(s) QID as needed for pain MUST LAST 30 DAYS 07/29/2018 08/27/2018 Inactive (Response to an electronic controlled substance refill request - RxReferenceNumber: [id number]) nystatin 100,000 unit/gram topical powder RxNorm: 950868 Applic ation TOP BID 07/22/2018 08/04/2018 Inactive doxepin 25 mg capsule RxNorm: 6968030 1 Capsule(s) PO QHS as needed 07/22/2018 08/05/2018 Inactive triamterene 75 mg-hydrochlorothiazide 50 mg tablet RxNorm: 3 80074 TAKE ONE TABLET BY MOUTH DAILY 07/05/2018 10/02/2018 Inactive duloxetine 60 mg capsule,delayed release RxNorm: 378283 TAKE ONE CAPSULE BY MOUTH DAILY 07/05/2018 09/02/2018 Inactive Klor-Con 8 mEq tablet,extended release RxNorm: 396454 T FARRUKH ONE TABLET BY MOUTH TWICE A DAY 07/05/2018 10/02/2018 Inactive Lipitor 10 mg tablet RxNorm: 703058 TAKE ONE TABLET BY MOUTH AT BEDTIME 07/05/2018 09/02/2018 Inactive allopurinol 300 mg tablet RxNorm: 325252 TAKE ONE TABLET BY LOPEZ TH DAILY 07/05/2018 10/02/2018 Inactive clonidine HCl 0.1 mg tablet RxNorm: 207286 TAKE ONE TAB LET BY MOUTH FOUR TIMES A DAY 07/05/2018 10/02/2018 Inactive hydrocodone 10 mg-acetaminophen 325 mg tablet RxNorm: 739321 1-2 Tablet(s) QID as needed for pain MUST LAST 30 DAYS 06/28/2018 07/27/2018 Inactive (Response to an electronic controlled substance refill request - RxReferenceNumber: [id number]) MediHoney (calcium alginate-honey) 4" X 5" bandage RxNorm: 1 Application TOP QD 06/17/2018 06/26/2018 Inactive honey-hydrocolloid dressing 4" X 5" RxNorm: 1 Application TOP QD 06/17/2018 07/16/2018 Inactive furosemide 40 mg tablet RxNorm: 379762 TAKE ONE TABLET BY MOUTH EVERY MORNING NEEDED FOR EDEMA . TAKE WITH POTASSIUM 06/10/2018 07/09/2018 Inactive This is a refill request. hydrocodone 10 mg-acetaminophen 325 mg tablet RxNorm: 789080 1-2 Tablet(s) QID as needed for pain MUST LAST 30 DAYS 05/30/2018 06/27/2018 Inactive (Response to an electronic controlled substance refill request - RxReferenceNumber: [id number]) acyclovir 800 mg tablet RxNorm: 890587 1 Tablet(s) PO 5x day 201705/22/2018 Inactive Premarin 1.25 mg tablet RxNorm: 913899 1-2 Tablet(s) PO QD 05/15/20 18 07/13/2018 Inactive cyclobenzaprine 10 mg tablet RxNorm: 704841 1 Tablet(s) PO TID as needed for muscle spasm 05/09/2018 05/08/2018 Inactive Medrol (Dustin) 4 mg tablets in a dose pack RxNorm: 694107 Tablet(s) PO As Directed 05/02/2018 06/16/2018 Inactive hydrocodone 10 mg-acetaminophen 325 mg tablet RxNorm: 930928 1-2 Tablet(s) QID as needed for pain MUST LAST 30 DAYS 04/30/2018 05/29/2018 Inactive (Response to an electronic controlled substance refill request - RxReferenceNumber: [id number]) duloxetine 60 mg capsule,delayed release RxNorm: 543102 TAKE ONE CAPSULE BY MOUTH DAILY 04/16/2018 05/15/2018 Inactive Celebrex 200 mg capsule RxNorm: 661716 TAKE ONE CAPSULE BY MOUT H TWICE A DAY 04/16/2018 06/14/2018 Inactive Singulair 10 mg tablet RxNorm: 153900 TAKE ONE TABLET BY MOUTH JOSÉ Y 04/16/2018 11/19/2018 Inactive Lipitor 10 mg tablet RxNorm: 971661 TAKE ONE TABLET BY MOUTH AT BEDTIME 04/16/2018 05/15/2018 Inactive hydrocodone 10 mg-acetaminophen 325 mg tablet RxNorm: 170417 1-2 Tablet(s) QID as needed for pain MUST LAST 30 DAYS 03/29/2018 04/27/2018 Inactive (Response to an electronic controlled substance refill request - RxReferenceNumber: [id number]) cyclobenzaprine 10 mg tablet RxNorm: 854475 1 Tablet(s) PO TID as needed for muscle spasm 03/18/2018 05/09/2018 Inactive omeprazole 40 mg capsule,delayed release RxNorm: 703380 1 Capsu le(s) PO QD 02/26/2018 08/24/2018 Inactive hydrocodone 10 mg-acetaminophen 325 mg tablet RxNorm: 588165 1-2 Tablet(s) QID as needed for pain MUST LAST 30 DAYS 02/26/2018 03/27/2018 Inactive (Response to an electronic controlled substance refill request - RxReferenceNumber: [id number]) metoprolol tartrate 100 mg tablet RxNorm: 267099 1 Tablet(s) PO BID 02/18/2018 08/05/2018 Inactive Lyrica 75 mg capsule RxNorm: 831213 1 Capsule(s) PO QHS 01/30/2018 Inactive phentermine 37.5 mg tablet RxNorm: 614973 1 Tablet(s) PO QAM 201706/16/2018 Inactive hydrocodone 10 mg-acetaminophen 325 mg tablet RxNorm: 118919 1-2 Tablet(s) QID as needed for pain MUST LAST 30 DAYS 01/29/2018 02/25/2018 Inactive (Response to an electronic controlled substance refill request - RxReferenceNumber: [id number]) Klor-Con 8 mEq tablet,extended release RxNorm: 102441 1 Tablet( s) PO BID 01/14/2018 07/04/2018 Inactive allopurinol 300 mg tablet RxNorm: 461743 1 Tablet(s) PO QD 01/15/2007/04/2018 Inactive Lipitor 10 mg tablet RxNorm: 418076 1 Tablet(s) PO QHS 01/14/201812/2017 Inactive triamterene 75 mg-hydrochlorothiazide 50 mg tablet RxNorm: 3 12299 1 Tablet(s) PO QD 01/14/2018 07/04/2018 Inactive hydrocodone 10 mg-acetaminophen 325 mg tablet RxNorm: 368384 1-2 Tablet(s) QID as needed for pain MUST LAST 30 DAYS 12/27/2017 01/25/2018 Inactive (Response to an electronic controlled substance refill request - RxReferenceNumber: [id number]) Onglyza 5 mg tablet RxNorm: 326590 1 Tablet(s) PO QD 12/18/201701/29 Inactive metformin 500 mg tablet RxNorm: 182946 1 Tablet(s) PO BID 12/11/2017 12/10/2017 Inactive metformin 500 mg tablet RxNorm: 921678 1 Tablet(s) PO BID 12/11/2017 12/17/2017 Inactive furosemide 40 mg tablet RxNorm: 478869 1 Tablet(s) PO Q AM prn edema--take with potassium 12/11/2017 06/08/2018 Inactive cyclobenzaprine 10 mg tablet RxNorm: 921525 1 Tablet(s) PO TID as needed for muscle spasm 12/11/2017 03/18/2018 Inactive hydrocodone 10 mg-acetaminophen 325 mg tablet RxNorm: 271823 1-2 Tablet(s) QID as needed for pain MUST LAST 30 DAYS 10/23/2017 11/21/2017 Inactive (Response to an electronic controlled substance refill request - RxReferenceNumber: [id number]) Lipitor 10 mg tablet RxNorm: 233440 1 Tablet(s) PO QHS 10/16/201703/2018 Inactive cyclobenzaprine 10 mg tablet RxNorm: 395962 1 Tablet(s) PO TID as needed for muscle spasm 10/09/2017 12/10/2017 Inactive hydroxyzine HCl 25 mg tablet RxNorm: 985906 1 Tablet(s) PO BID as needed for anxiety 09/20/2017 01/29/2018 Inactive Effexor XR 75 mg capsule,extended release RxNorm: 233896 1 Caps ule(s) PO QD 09/20/2017 01/29/2018 Inactive metoprolol tartrate 100 mg tablet RxNorm: 370986 1 Tablet(s) PO BID 08/20/2017 02/18/2018 Inactive baclofen 20 mg tablet RxNorm: 283699 1 Tablet(s) PO TID as needed for muscle spasm 08/20/2017 01/21/2019 Inactive clonidine HCl 0.1 mg tablet RxNorm: 734562 1 Tablet(s) PO QID 08/2005/16/2018 Inactive Seroquel 25 mg tablet RxNorm: 642616 1 Tablet(s) PO QHS 08/17/2017 Inactive Seroquel 25 mg tablet RxNorm: 023978 1 Tablet(s) PO QHS 08/17/2017 Inactive Diflucan 100 mg tablet RxNorm: 308909 TAKE ONE TABLET BY MOUTH JOSÉ Y 07/25/2017 08/07/2017 Inactive hydrocodone 10 mg-acetaminophen 325 mg tablet RxNorm: 578572 1-2 Tablet(s) QID as needed for pain MUST LAST 30 DAYS 07/19/2017 08/17/2017 Inactive (Response to an electronic controlled substance refill request - RxReferenceNumber: [id number]) clindamycin 300 mg capsule RxNorm: 752613 1 Capsule(s) PO TID 07/1907/28/2017 Inactive clotrimazole-betamethasone 1 %-0.05 % topical cream RxNorm: 736907 Application TOP BID to elbow rash 07/19/2017 06/16/2018 Inactive Singulair 10 mg tablet RxNorm: 853306 Tablet(s) TAKE ONE TABLET BY MOUTH DAILY 07/18/2017 04/13/2018 Inactive triamterene 75 mg-hydrochlorothiazide 50 mg tablet RxNorm: 3 41360 1 Tablet(s) PO QD 07/18/2017 01/14/2018 Inactive Celebrex 200 mg capsule RxNorm: 073339 Capsule(s) TAKE ONE CAPSULE BY MOUTH TWICE A DAY 07/18/2017 10/15/2017 Inactive hydrocodone 10 mg-acetaminophen 325 mg tablet RxNorm: 569653 1-2 Tablet(s) QID as needed for pain MUST LAST 30 DAYS 06/19/2017 07/18/2017 Inactive (Response to an electronic controlled substance refill request - RxReferenceNumber: [id number]) hydrocodone 10 mg-acetaminophen 325 mg tablet RxNorm: 663027 1-2 Tablet(s) QID as needed for pain MUST LAST 30 DAYS 06/19/2017 06/18/2017 Inactive (Response to an electronic controlled substance refill request - RxReferenceNumber: [id number]) baclofen 20 mg tablet RxNorm: 516468 1 Tablet(s) PO TID as needed for muscle spasm 06/18/2017 08/20/2017 Inactive Medrol (Dustin) 4 mg tablets in a dose pack RxNorm: 538467 Tablet(s) PO As Directed 06/05/2017 07/18/2017 Inactive omeprazole 40 mg capsule,delayed release RxNorm: 099020 1 Capsu le(s) PO QD 04/20/2017 10/16/2017 Inactive Premarin 1.25 mg tablet RxNorm: 305736 1-2 Tablet(s) PO QD 04/11/20 17 05/15/2018 Inactive duloxetine 60 mg capsule,delayed release RxNorm: 028362 1 Capsu le(s) PO QD 04/11/2017 09/19/2017 Inactive furosemide 40 mg tablet RxNorm: 862716 1 Tablet(s) PO Q AM prn edema--take with potassium 04/11/2017 12/11/2017 Inactive Klor-Con 8 mEq tablet,extended release RxNorm: 172888 1 Tablet( s) PO BID 04/11/2017 01/14/2018 Inactive Lipitor 10 mg tablet RxNorm: 431680 1 Tablet(s) PO QHS 04/11/201702/2018 Inactive amlodipine 5 mg-benazepril 20 mg capsule RxNorm: 165328 1 Capsu le(s) PO QD 04/11/2017 01/29/2018 Inactive allopurinol 300 mg tablet RxNorm: 662944 1 Tablet(s) PO QD 04/11/20 17 01/14/2018 Inactive clonidine HCl 0.1 mg tablet RxNorm: 463869 1 Tablet(s) PO QID 04/0508/19/2017 Inactive baclofen 20 mg tablet RxNorm: 962275 1 Tablet(s) PO TID as needed for muscle spasm 04/02/2017 06/18/2017 Inactive Premarin 1.25 mg tablet RxNorm: 371015 1-2 Tablet(s) PO QD 03/20/20 17 04/10/2017 Inactive hydrocodone 10 mg-acetaminophen 325 mg tablet RxNorm: 771992 1-2 Tablet(s) QID as needed for pain MUST LAST 30 DAYS 03/14/2017 01/21/2019 Inactive (Response to an electronic controlled substance refill request - RxReferenceNumber: [id number]) metoprolol tartrate 100 mg tablet RxNorm: 486399 1 Tablet(s) PO BID 02/12/2017 08/20/2017 Inactive hydrocodone 10 mg-acetaminophen 325 mg tablet RxNorm: 124591 1-2 Tablet(s) QID as needed for pain MUST LAST 30 DAYS 02/08/2017 03/09/2017 Inactive (Response to an electronic controlled substance refill request - [id number]) metoprolol tartrate 100 mg tablet RxNorm: 423673 TAKE O NE TABLET BY MOUTH TWICE A DAY 01/11/2017 02/12/2017 Inactive metoprolol tartrate 100 mg tablet RxNorm: 113912 1 Tablet(s) PO BID 12/18/2016 12/17/2016 Inactive metoprolol tartrate 100 mg tablet RxNorm: 104983 1 Tablet(s) PO BID 12/18/2016 01/10/2017 Inactive furosemide 40 mg tablet RxNorm: 297749 1 Tablet(s) PO Q AM prn edema--take with potassium 12/13/2016 02/10/2017 Inactive amitriptyline 100 mg tablet RxNorm: 128906 1 Tablet(s) PO QHS 11/2812/12/2016 Inactive baclofen 20 mg tablet RxNorm: 577003 1 Tablet(s) PO TID as needed for muscle spasm 11/14/2016 04/01/2017 Inactive triamterene 75 mg-hydrochlorothiazide 50 mg tablet RxNorm: 3 25514 1 Tablet(s) PO QD 11/14/2016 11/13/2016 Inactive metolazone 2.5 mg tablet RxNorm: 232566 TAKE ONE TABLET BY MOUTH DAILY NEEDED FOR EDEMA 11/14/2016 12/12/2016 Inactive triamterene 75 mg-hydrochlorothiazide 50 mg tablet RxNorm: 3 29957 1 Tablet(s) PO QD 11/14/2016 07/18/2017 Inactive amitriptyline 50 mg tablet RxNorm: 145454 TAKE ONE TABL ET BY MOUTH AT BEDTIME NEEDED FOR SLEEP 11/14/2016 11/27/2016 Inactive Cymbalta 60 mg capsule,delayed release RxNorm: 076375 1 Capsule (s) PO QHS 11/14/2016 12/12/2016 Inactive clonidine HCl 0.1 mg tablet RxNorm: 454429 1 Tablet(s) PO QID 11/1304/04/2017 Inactive amitriptyline 50 mg tablet RxNorm: 241469 1 Tablet(s) P O QHS as needed for sleep 11/01/2016 11/27/2016 Inactive duloxetine 60 mg capsule,delayed release RxNorm: 730319 TAKE ONE CAPSULE BY MOUTH DAILY 10/20/2016 01/17/2017 Inactive allopurinol 300 mg tablet RxNorm: 438443 TAKE ONE TABLET BY LOPEZ TH DAILY 10/20/2016 01/16/2017 Inactive Lyrica 75 mg capsule RxNorm: 226996 TAKE ONE CAPSULE BY MOUTH EVERY NIGHT AT BEDTIME 10/20/2016 12/10/2016 Inactive Klor-Con 8 mEq tablet,extended release RxNorm: 227657 T FARRUKH ONE TABLET BY MOUTH TWICE A DAY 10/20/2016 01/17/2017 Inactive Celebrex 200 mg capsule RxNorm: 829130 TAKE ONE CAPSULE BY MOUT H TWICE A DAY 10/20/2016 07/18/2017 Inactive Bystolic 10 mg tablet RxNorm: 084525 TAKE ONE TABLET BY MOUTH EVERY NIGHT AT BEDTIME 10/20/2016 12/17/2016 Inactive amlodipine 5 mg-benazepril 20 mg capsule RxNorm: 063979 TAKE ONE CAPSULE BY MOUTH EVERY NIGHT AT BEDTIME -- TO REPLACE AMLODOPINE 10/20/20162016 Inactive Lipitor 10 mg tablet RxNorm: 317298 TAKE ONE TABLET BY MOUTH EVERY NIGHT AT BEDTIME 10/20/2016 01/17/2017 Inactive alprazolam 0.5 mg tablet RxNorm: 285425 3 Tablet(s) PO QHS as needed for sleep/anxiety 09/20/2016 10/31/2016 Inactive Tamiflu 75 mg capsule RxNorm: 244491 1 Capsule(s) PO QD 09/19/2016 Inactive Lyrica 75 mg capsule RxNorm: 821518 1 Capsule(s) PO QHS 09/19/2016 Inactive prednisone 20 mg tablet RxNorm: 345429 1 Tablet(s) PO QD 08/10/2016 1 10/17/2015 Inactive doxycycline hyclate 100 mg capsule RxNorm: 8038950 1 Capsule(s) PO BID 08/10/2016 08/19/2016 Inactive Medrol (Dustin) 4 mg tablets in a dose pack RxNorm: 728850 Tablet(s) PO As Directed 07/31/2016 08/22/2016 Inactive Singulair 10 mg tablet RxNorm: 537269 TAKE ONE TABLET BY MOUTH JOSÉ Y 07/27/2016 07/18/2017 Inactive hydrocodone 10 mg-acetaminophen 325 mg tablet RxNorm: 328782 1-2 Tablet(s) QID as needed for pain MUST LAST 30 DAYS 07/26/2016 08/24/2016 Inactive (Response to an electronic controlled substance refill request - RxReferenceNumber: [id number]) alprazolam 0.5 mg tablet RxNorm: 010022 3 Tablet(s) PO QHS as needed for anxiety or sleep 07/26/2016 09/20/2016 Inactive clindamycin 300 mg capsule RxNorm: 879915 1 Capsule(s) PO TID 07/2007/29/2016 Inactive Diflucan 100 mg tablet RxNorm: 274883 1 Tablet(s) PO QD 07/20/2016 Inactive Levaquin 500 mg tablet RxNorm: 291339 1 Tablet(s) PO QD 07/17/2016 Inactive Levaquin 500 mg tablet RxNorm: 854155 1 Tablet(s) PO QD 07/10/2016 Inactive Levaquin 500 mg tablet RxNorm: 131694 1 Tablet(s) PO QD 07/10/2016 Inactive mupirocin 2 % topical ointment RxNorm: 474877 TOP Apply topically to affected areas twice daily 07/06/2016 09/18/2016 Inactive Singulair 10 mg tablet RxNorm: 770431 TAKE ONE TABLET BY MOUTH JOSÉ Y 06/21/2016 01/21/2019 Inactive alprazolam 0.5 mg tablet RxNorm: 141382 TAKE THREE TABL ETS BY MOUTH AT BEDTIME NEEDED FOR SLEEP OR STRESS 05/22/2016 06/20/2016 Inactive triamterene 75 mg-hydrochlorothiazide 50 mg tablet RxNorm: 3 97828 1 Tablet(s) PO QD 04/26/2016 01/12/2020 Inactive Premarin 1.25 mg tablet RxNorm: 129597 1-2 Tablet(s) PO QD 04/26/20 16 03/20/2017 Inactive Klor-Con 8 mEq tablet,extended release RxNorm: 665882 1 Tablet( s) PO BID 04/26/2016 10/19/2016 Inactive Celebrex 200 mg capsule RxNorm: 475855 1 Capsule(s) PO BID TAKE ONE CAPSULE BY MOUTH EVERY DAY 04/26/2016 10/19/2016 Inactive Lipitor 10 mg tablet RxNorm: 705554 1 Tablet(s) PO QHS 04/26/201605/2017 Inactive allopurinol 300 mg tablet RxNorm: 113196 1 Tablet(s) PO QD TAKE ONE TABLET BY MOUTH EVERY DAY 04/26/2016 10/19/2016 Inactive amlodipine 5 mg-benazepril 20 mg capsule RxNorm: 659148 1 Capsule(s) PO QHS replaces amlodopine 04/26/2016 10/19/2016 Inactive duloxetine 60 mg capsule,delayed release RxNorm: 204476 1 Capsu le(s) PO QD 04/26/2016 10/19/2016 Inactive Bystolic 10 mg tablet RxNorm: 265373 1 Tablet(s) PO QHS 04/26/2016 Inactive Singulair 10 mg tablet RxNorm: 177614 1 Tablet(s) PO QD TAKE ONE TABLET BY MOUTH DAILY 04/26/2016 06/20/2016 Inactive clonidine HCl 0.1 mg tablet RxNorm: 414375 1 Tablet(s) PO QID 04/2610/22/2016 Inactive hydrocodone 10 mg-acetaminophen 325 mg tablet RxNorm: 741865 1-2 Tablet(s) QID as needed for pain TAKE ONE TO TWO TABLETS BY MOUTH FOUR TIMES A DAY . MUST LAST 30 DAYS 03/31/2016 04/29/2016 Inactive (Response to an electronic controlled substance refill request - RxReferenceNumber: [id number]) Klor-Con 8 mEq tablet,extended release RxNorm: 389992 T FARRUKH ONE TABLET BY MOUTH TWICE A DAY 03/24/2016 09/29/2019 Inactive prednisone 20 mg tablet RxNorm: 977188 1 Tablet(s) PO QD 03/09/2016 0 03/08/2016 Inactive prednisone 20 mg tablet RxNorm: 721838 1 Tablet(s) PO QD 03/09/2016 0 03/13/2016 Inactive alprazolam 0.5 mg tablet RxNorm: 597367 3 Tablet(s) PO QHS as needed for sleep/stress 03/02/2016 01/21/2019 Inactive mupirocin 2 % topical ointment RxNorm: 854611 TOP twice daily to affected areas of face and neck 02/21/2016 04/25/2016 Inactive clonidine HCl 0.1 mg tablet RxNorm: 850161 TAKE ONE TAB LET BY MOUTH FOUR TIMES A DAY 02/15/2016 09/29/2019 Inactive clonidine HCl 0.1 mg tablet RxNorm: 838016 1 Tablet(s) PO QID 02/1404/25/2016 Inactive Premarin 1.25 mg tablet RxNorm: 140382 1-2 Tablet(s) PO QD 02/15/20 16 03/15/2016 Inactive Klor-Con 8 mEq tablet,extended release RxNorm: 548672 T FARRUKH ONE TABLET BY MOUTH TWICE A DAY 02/15/2016 03/15/2016 Inactive potassium chloride ER 20 mEq tablet,extended release(part/cr yst) RxNorm: 744116 2 Tablet(s) PO BID 02/15/2016 03/15/2016 Inactive Macrobid 100 mg capsule RxNorm: 819467 1 Capsule(s) PO BID 01/24/20 16 01/30/2016 Inactive prednisone 20 mg tablet RxNorm: 812942 Take 3tabs PO QD x 2 days, then 2 tabs PO QD x 2 days, then 1 tab PO QD x 2 days, then 1/2 tab PO QDy x 2 days 12/23/2015 04/25/2016 Inactive Klor-Con 8 mEq tablet,extended release RxNorm: 809652 T FARRUKH ONE TABLET BY MOUTH TWICE A DAY 12/20/2015 02/14/2016 Inactive alprazolam 1 mg tablet RxNorm: 053740 1 1/2 Tablet(s) PO QHS 201501/23/2016 Inactive nystatin 100,000 unit/gram topical cream RxNorm: 355173 APPLY TO AFFECTED AREA(S) TWO TIMES A DAY 11/30/2015 12/14/2015 Inactive Singulair 10 mg tablet RxNorm: 147820 TAKE ONE TABLET BY MOUTH JOSÉ Y 11/18/2015 04/25/2016 Inactive allopurinol 300 mg tablet RxNorm: 280770 1 Tablet(s) PO QD TAKE ONE TABLET BY MOUTH EVERY DAY 10/26/2015 04/22/2016 Inactive Singulair 10 mg tablet RxNorm: 251267 TAKE ONE TABLET BY MOUTH JOSÉ Y 10/26/2015 11/17/2015 Inactive duloxetine 60 mg capsule,delayed release RxNorm: 710126 1 Capsu le(s) PO QD 10/26/2015 04/22/2016 Inactive triamterene 75 mg-hydrochlorothiazide 50 mg tablet RxNorm: 3 37496 1 Tablet(s) PO QD 10/26/2015 11/14/2016 Inactive potassium chloride ER 20 mEq tablet,extended release(part/cr yst) RxNorm: 454281 2 Tablet(s) PO BID 10/26/2015 02/14/2016 Inactive Lipitor 10 mg tablet RxNorm: 224389 1 Tablet(s) PO QHS 10/26/2015 Inactive amlodipine 5 mg-benazepril 20 mg capsule RxNorm: 978322 1 Capsule(s) PO QHS replaces amlodopine 10/26/2015 04/22/2016 Inactive Bystolic 10 mg tablet RxNorm: 947179 1 Tablet(s) PO QHS 10/26/2015 Inactive amlodipine 5 mg-benazepril 20 mg capsule RxNorm: 643377 1 Capsule(s) PO QHS replaces amlodopine 10/06/2015 10/25/2015 Inactive amlodipine 5 mg tablet RxNorm: 691297 1 Tablet(s) PO QHS 09/30/2015 0 04/25/2016 Inactive metolazone 2.5 mg tablet RxNorm: 613219 TAKE ONE TABLET BY MOUTH DAILY NEEDED FOR EDEMA 09/30/2015 01/21/2019 Inactive duloxetine 60 mg capsule,delayed release RxNorm: 629606 1 Capsu le(s) PO QD 09/30/2015 10/25/2015 Inactive cephalexin 500 mg capsule RxNorm: 651867 1 Capsule(s) PO BID 201509/23/2015 Inactive mupirocin 2 % topical ointment RxNorm: 872504 TOP twice daily to affected areas of face and neck 09/14/2015 02/20/2016 Inactive baclofen 20 mg tablet RxNorm: 993354 1 Tablet(s) PO TID as needed for muscle spasm 09/01/2015 11/14/2016 Inactive clonidine HCl 0.1 mg tablet RxNorm: 900393 1 Tablet(s) PO QID 09/0102/14/2016 Inactive alprazolam 1 mg tablet RxNorm: 896553 1 1/2 Tablet(s) PO QHS 201409/09/2015 Inactive baclofen 20 mg tablet RxNorm: 117403 1 Tablet(s) PO TID as needed for muscle spasm 07/23/2015 09/01/2015 Inactive omeprazole 40 mg capsule,delayed release RxNorm: 674240 1 Capsu le(s) PO QD 07/23/2015 04/25/2016 Inactive alprazolam 1 mg tablet RxNorm: 489584 1 1/2 Tablet(s) PO QHS 201408/10/2015 Inactive Bystolic 10 mg tablet RxNorm: 081356 1 Tablet(s) PO BID 06/24/2015 Inactive allopurinol 300 mg tablet RxNorm: 943545 1 Tablet(s) PO QD TAKE ONE TABLET BY MOUTH EVERY DAY 06/23/2015 10/20/2015 Inactive alprazolam 1 mg tablet RxNorm: 387136 1 1/2 Tablet(s) PO QHS 201407/06/2015 Inactive clonidine HCl 0.1 mg tablet RxNorm: 244393 1 Tablet(s) PO QID 06/0209/01/2015 Inactive clonidine HCl 0.1 mg tablet RxNorm: 756708 1 Tablet(s) PO QID 06/0206/01/2015 Inactive Cymbalta 60 mg capsule,delayed release RxNorm: 893176 1 Capsule (s) PO QHS 06/02/2015 08/30/2015 Inactive Cymbalta 60 mg capsule,delayed release RxNorm: 947545 1 Capsule (s) PO QHS 06/02/2015 06/01/2015 Inactive clonidine HCl 0.1 mg tablet RxNorm: 398943 1 Tablet(s) PO TID 05/3106/01/2015 Inactive replaces 0.2mg dose metolazone 2.5 mg tablet RxNorm: 405427 TAKE ONE TABLET BY MOUTH DAILY NEEDED FOR EDEMA 05/21/2015 06/19/2015 Inactive Singulair 10 mg tablet RxNorm: 095035 TAKE ONE TABLET BY MOUTH JOSÉ Y 05/21/2015 10/17/2015 Inactive Cymbalta 30 mg capsule,delayed release RxNorm: 988254 1 Capsule (s) PO QHS 05/20/2015 11/14/2016 Inactive betamethasone valerate 0.1 % topical cream RxNorm: 621924 Appli cation TOP BID 05/10/2015 04/25/2016 Inactive Bactroban 2 % topical ointment RxNorm: 120634 Application TOP BID 0 05/10/2015 06/20/2015 Inactive baclofen 20 mg tablet RxNorm: 605163 1 Tablet(s) PO TID as needed 0 04/26/2015 07/23/2015 Inactive Lipitor 10 mg tablet RxNorm: 706388 1 Tablet(s) PO QHS 04/26/201508/2016 Inactive clonidine HCl 0.1 mg tablet RxNorm: 279173 1 Tablet(s) PO TID 04/2605/30/2015 Inactive replaces 0.2mg dose Klor-Con 8 mEq tablet,extended release RxNorm: 474348 1 Tablet( s) PO BID 04/26/2015 04/25/2016 Inactive metolazone 2.5 mg tablet RxNorm: 393161 1 Tablet(s) PO QD as ne eded for edema 04/26/2015 04/25/2015 Inactive triamterene 75 mg-hydrochlorothiazide 50 mg tablet RxNorm: 3 79466 1 Tablet(s) PO QD 04/26/2015 10/22/2015 Inactive Premarin 1.25 mg tablet RxNorm: 296753 1-2 Tablet(s) PO QD 04/26/20 15 10/22/2015 Inactive Bystolic 10 mg tablet RxNorm: 628815 1 Tablet(s) PO QAM TAKE ONE TABLET BY MOUTH EVERY MORNING 04/23/2015 06/23/2015 Inactive clonidine HCl 0.1 mg tablet RxNorm: 644932 1 Tablet(s) PO TID 03/2304/25/2015 Inactive replaces 0.2mg dose nystatin 100,000 unit/gram topical cream RxNorm: 935611 Applica tion TOP BID 03/23/2015 06/20/2015 Inactive baclofen 20 mg tablet RxNorm: 255270 1 Tablet(s) PO TID as needed 0 03/23/2015 04/25/2015 Inactive Premarin 1.25 mg tablet RxNorm: 088272 1-2 Tablet(s) PO QD 03/23/20 15 04/25/2015 Inactive Klor-Con 8 mEq tablet,extended release RxNorm: 617819 1 Tablet( s) PO BID 03/23/2015 04/25/2015 Inactive cefdinir 300 mg capsule RxNorm: 887764 2 Capsule(s) PO QD 03/16/2015 03/25/2015 Inactive baclofen 20 mg tablet RxNorm: 057806 1 Tablet(s) PO TID as needed 0 03/02/2015 03/22/2015 Inactive allopurinol 300 mg tablet RxNorm: 822733 1 Tablet(s) PO QD TAKE ONE TABLET BY MOUTH EVERY DAY 02/22/2015 05/22/2015 Inactive Klor-Con M20 mEq tablet,extended release RxNorm: 037203 2 Tablet(s) PO BID to use with lasix 02/22/2015 06/20/2015 Inactive clonidine HCl 0.1 mg tablet RxNorm: 966587 1 Tablet(s) PO TID 02/1903/22/2015 Inactive replaces 0.2mg dose Lipitor 10 mg tablet RxNorm: 356465 1 Tablet(s) PO QHS 01/20/201506/2015 Inactive Lipitor 10 mg tablet RxNorm: 998387 1 Tablet(s) PO QHS 01/20/2015 Inactive Singulair 10 mg tablet RxNorm: 446775 1 Tablet(s) PO QD TAKE ONE TABLET BY MOUTH EVERY DAY 11/20/2014 05/18/2015 Inactive Lipitor 10 mg tablet RxNorm: 885136 1 Tablet(s) PO QHS 11/20/201408/2015 Inactive allopurinol 300 mg tablet RxNorm: 975927 1 Tablet(s) PO QD TAKE ONE TABLET BY MOUTH EVERY DAY 11/20/2014 02/16/2015 Inactive Bystolic 10 mg tablet RxNorm: 076993 1 Tablet(s) PO QAM TAKE ONE TABLET BY MOUTH EVERY MORNING 11/20/2014 04/22/2015 Inactive Klor-Con 8 mEq tablet,extended release RxNorm: 728412 1 Tablet( s) PO BID 11/20/2014 02/17/2015 Inactive baclofen 20 mg tablet RxNorm: 064882 1 Tablet(s) PO TID as needed 0 11/20/2014 01/21/2019 Inactive baclofen 20 mg tablet RxNorm: 535644 1 Tablet(s) PO TID as needed 0 10/27/2014 11/19/2014 Inactive baclofen 20 mg tablet RxNorm: 025128 1 Tablet(s) PO TID as needed 0 10/26/2014 03/01/2015 Inactive allopurinol 300 mg tablet RxNorm: 930163 1 Tablet(s) PO QD TAKE ONE TABLET BY MOUTH EVERY DAY 10/26/2014 11/20/2014 Inactive Bystolic 10 mg tablet RxNorm: 384692 1 Tablet(s) PO QAM TAKE ONE TABLET BY MOUTH EVERY MORNING 10/26/2014 11/20/2014 Inactive clonidine HCl 0.1 mg tablet RxNorm: 326524 1 Tablet(s) PO TID 09/2805/27/2019 Inactive replaces 0.2mg dose clonidine HCl 0.1 mg tablet RxNorm: 254666 1 Tablet(s) PO TID 09/2802/18/2015 Inactive replaces 0.2mg dose baclofen 20 mg tablet RxNorm: 491720 1 Tablet(s) PO TID as needed 1 11/01/2013 08/30/2014 Inactive Lipitor 10 mg tablet RxNorm: 677179 1 Tablet(s) PO QHS 08/31/2014 Inactive baclofen 20 mg tablet RxNorm: 580666 1 Tablet(s) PO TID as needed 1 11/01/2013 10/26/2014 Inactive triamterene 75 mg-hydrochlorothiazide 50 mg tablet RxNorm: 3 24016 1 Tablet(s) PO QD 08/31/2014 02/26/2015 Inactive Klor-Con 8 mEq tablet,extended release RxNorm: 536982 1 Tablet( s) PO BID 08/31/2014 11/20/2014 Inactive baclofen 20 mg tablet RxNorm: 668095 1 Tablet(s) PO TID as needed 1 09/30/2013 10/25/2014 Inactive baclofen 20 mg tablet RxNorm: 046960 1 Tablet(s) PO TID as needed 1 09/30/2013 08/31/2014 Inactive omeprazole 40 mg capsule,delayed release RxNorm: 498795 1 Capsu le(s) PO QD 07/21/2014 07/23/2015 Inactive Flonase 50 mcg/actuation nasal spray,suspension RxNorm: 8963 23 1 [place] NASAL BID 07/15/2014 04/09/2017 Inactive hydrocodone 10 mg-acetaminophen 325 mg tablet RxNorm: 743202 1-2 Tablet(s) QID as needed for pain TAKE ONE TO TWO TABLETS BY MOUTH FOUR TIMES A DAY . MUST LAST 30 DAYS 06/30/2014 07/27/2014 Inactive (Response to an electronic controlled substance refill request - [facility] [id number]) baclofen 20 mg tablet RxNorm: 331815 1 Tablet(s) PO TID as needed 1 07/31/2014 Inactive Singulair 10 mg tablet RxNorm: 331513 1 Tablet(s) PO QD TAKE ONE TABLET BY MOUTH EVERY DAY 05/25/2014 11/20/2014 Inactive Bystolic 10 mg tablet RxNorm: 574454 TAKE ONE TABLET BY MOUTH E VERY MORNING 05/25/2014 09/21/2014 Inactive allopurinol 300 mg tablet RxNorm: 763333 1 Tablet(s) PO QD TAKE ONE TABLET BY MOUTH EVERY DAY 05/25/2014 10/21/2014 Inactive baclofen 20 mg tablet RxNorm: 095141 1 Tablet(s) PO TID as needed 0 05/25/2014 06/29/2014 Inactive allopurinol 300 mg tablet RxNorm: 523171 TAKE ONE TABLET BY LOPEZ TH EVERY DAY 05/25/2014 09/21/2014 Inactive Singulair 10 mg tablet RxNorm: 170966 1 Tablet(s) PO QD TAKE ONE TABLET BY MOUTH EVERY DAY 05/25/2014 05/24/2014 Inactive Bystolic 10 mg tablet RxNorm: 958079 1 Tablet(s) PO QAM TAKE ONE TABLET BY MOUTH EVERY MORNING 05/25/2014 10/21/2014 Inactive metolazone 2.5 mg tablet RxNorm: 818451 1 Tablet(s) PO QD as ne eded for edema 05/18/2014 04/25/2015 Inactive Lasix 40 mg tablet RxNorm: 496620 1 Tablet(s) PO QAM s hould take potassium supplementation with this medication 05/14/2014 05/17/2014 Inactive hydrocodone 10 mg-acetaminophen 325 mg tablet RxNorm: 702105 1-2 Tablet(s) QID as needed for pain TAKE ONE TO TWO TABLETS BY MOUTH FOUR TIMES A DAY . MUST LAST 30 DAYS 05/07/2014 06/05/2014 Inactive (Response to an electronic controlled substance refill request - RxReferenceNumber: [id number]) alprazolam 0.5 mg tablet RxNorm: 010664 TAKE ONE TABLET BY MOUTH TWICE A DAY , MUST LAST 30 DAYS 05/07/2014 05/22/2016 Inactive (Response to a n electronic controlled substance refill request - RxReferenceNumber: [id number]) diclofenac sodium 75 mg tablet,delayed release RxNorm: 46554 6 1 Tablet(s) PO BID for pain 04/24/2014 07/20/2014 Inactive Celebrex 200 mg capsule RxNorm: 601536 TAKE ONE CAPSULE BY MOUT H EVERY DAY 04/24/2014 07/20/2014 Inactive alprazolam 0.5 mg tablet RxNorm: 438427 TAKE ONE TABLET BY MOUTH TWICE A DAY , MUST LAST 30 DAYS 03/24/2014 04/22/2014 Inactive (Response to a n electronic controlled substance refill request - RxReferenceNumber: [id number]) diclofenac sodium 75 mg tablet,delayed release RxNorm: 16955 6 1 Tablet(s) PO BID for pain 03/24/2014 04/24/2014 Inactive clonidine HCl 0.1 mg tablet RxNorm: 537755 1 Tablet(s) PO TID 03/2409/28/2014 Inactive replaces 0.2mg dose Klor-Con 8 mEq tablet,extended release RxNorm: 795034 1 Tablet( s) PO BID 02/26/2014 08/31/2014 Inactive diclofenac sodium 75 mg tablet,delayed release RxNorm: 46467 6 1 Tablet(s) PO BID for pain 02/25/2014 03/24/2014 Inactive hydrocodone 10 mg-acetaminophen 325 mg tablet RxNorm: 887529 1-2 Tablet(s) QID as needed for pain TAKE ONE TO TWO TABLETS BY MOUTH FOUR TIMES A DAY . MUST LAST 30 DAYS 02/25/2014 03/26/2014 Inactive (Response to an electronic controlled substance refill request - RxReferenceNumber: [id number]) alprazolam 0.5 mg tablet RxNorm: 803211 Tablet(s) PO BI D as needed for anxiety TAKE ONE TABLET BY MOUTH TWICE A DAY , MUST LAST 30 DAYS 02/25/2014 Inactive (Response to an electronic controlled [place] bstance refill request - RxReferenceNumber: [id number]) [AttnRPh: Saving apply/adjudicate RxGRP:SG20 RxBIN:[id number] RxPCN: ID#:[id number]] alprazolam 0.5 mg tablet RxNorm: 430917 Tablet(s) TAKE ONE TABLET BY MOUTH TWICE A DAY , MUST LAST 30 DAYS 01/27/2014 02/24/2014 Inactive (Respo nse to an electronic controlled substance refill request - RxReferenceNumber: [id number]) [AttnRPh: Saving apply/adjudicate RxGRP:SG20 RxBIN:[id number] RxPCN: ID#:[id number]] hydrocodone 10 mg-acetaminophen 325 mg tablet RxNorm: 992015 1-2 Tablet(s) QID as needed for pain TAKE ONE TO TWO TABLETS BY MOUTH FOUR TIMES A DAY . MUST LAST 30 DAYS 01/27/2014 02/24/2014 Inactive (Response to an electronic controlled substance refill request - RxReferenceNumber: [id number]) alprazolam 0.5 mg tablet RxNorm: 588903 TAKE ONE TABLET BY MOUTH TWICE A DAY , MUST LAST 30 DAYS 01/27/2014 01/26/2014 Inactive (Response to a n electronic controlled substance refill request - RxReferenceNumber: [id number]) Premarin 1.25 mg tablet RxNorm: 140186 1-2 Tablet(s) PO QD 01/28/20 14 07/25/2014 Inactive alprazolam 0.5 mg tablet RxNorm: 495879 TAKE ONE TABLET BY MOUTH TWICE A DAY , MUST LAST 30 DAYS 01/27/2014 01/27/2014 Inactive (Response to a n electronic controlled substance refill request - RxReferenceNumber: [id number]) hydrocodone 10 mg-acetaminophen 325 mg tablet RxNorm: 558024 TAKE ONE TO TWO TABLETS BY MOUTH FOUR TIMES A DAY . MUST LAST 30 DAYS 01/27/20142013 Inactive (Response to an electronic controlled [place] bstance refill request - RxReferenceNumber: [id number]) Celebrex 200 mg capsule RxNorm: 057559 1 Capsule(s) PO QD TAKE ONE CAPSULE BY MOUTH EVERY DAY 12/29/2013 04/27/2014 Inactive hydrocodone 10 mg-acetaminophen 325 mg tablet RxNorm: 453569 1-2 Tablet(s) PO QID as needed for severe pain 12/29/2013 01/27/2014 Inactive allopurinol 300 mg tablet RxNorm: 014699 1 Tablet(s) PO QD TAKE ONE TABLET BY MOUTH EVERY DAY 12/29/2013 05/24/2014 Inactive alprazolam 0.5 mg tablet RxNorm: 745608 TAKE ONE TABLET BY MOUTH TWICE A DAY , MUST LAST 30 DAYS 12/29/2013 01/27/2014 Inactive (Response to a n electronic controlled substance refill request - RxReferenceNumber: [id number]) Celebrex 200 mg capsule RxNorm: 936603 1 Capsule(s) PO QD TAKE ONE CAPSULE BY MOUTH EVERY DAY 12/29/2013 12/29/2013 Inactive Bystolic 10 mg tablet RxNorm: 984775 1 Tablet(s) PO QAM TAKE ONE TABLET BY MOUTH EVERY MORNING 12/29/2013 05/24/2014 Inactive Bystolic 10 mg tablet RxNorm: 418380 1 Tablet(s) PO QAM TAKE ONE TABLET BY MOUTH EVERY MORNING 12/29/2013 12/29/2013 Inactive Singulair 10 mg tablet RxNorm: 312754 1 Tablet(s) PO QD TAKE ONE TABLET BY MOUTH EVERY DAY 12/29/2013 05/25/2014 Inactive hydrocodone 10 mg-acetaminophen 325 mg tablet RxNorm: 691637 TAKE ONE TO TWO TABLETS BY MOUTH FOUR TIMES A DAY . MUST LAST 30 DAYS 12/29/20132013 Inactive (Response to an electronic controlled [place] bstance refill request - RxReferenceNumber: [id number]) Trazadone 75mg Tablet RxNorm: 1 Tablet(s) PO QHS as needed 03/23/2014 Inactive Trazadone 75mg Tablet RxNorm: 1 Tablet(s) PO QHS 12/24/20132014 Inactive Soma 350 mg tablet RxNorm: 694648 Tablet(s) PO TAKE ON E TABLET BY MOUTH THREE TIMES A DAY NEEDED FOR MUSCLE SPASMS. THIS MUST LAST 30 DAYS BETWEEN REFILLS. 12/10/2013 12/22/2013 Inactive (Appended: Cont rolled substance eRx refill - RxReferenceNumber: [id number]) diclofenac sodium 75 mg tablet,delayed release RxNorm: 89607 6 1 Tablet(s) PO BID for pain 12/10/2013 02/24/2014 Inactive allopurinol 300 mg tablet RxNorm: 511291 1 Tablet(s) PO QD 11/20/19 14 12/29/2013 Inactive alprazolam 0.5 mg tablet RxNorm: 798648 2 Tablet(s) PO BID 11/13/19 14 12/29/2013 Inactive prn clonidine 0.1 mg tablet RxNorm: 604125 1 Tablet(s) PO TID 11/12/2013 02/09/2014 Inactive replaces 0.2mg dose Klor-Con M20 mEq tablet,extended release RxNorm: 877237 2 Tablet(s) PO BID to use with lasix 11/12/2013 05/10/2014 Inactive Singulair 10 mg tablet RxNorm: 042197 1 Tablet(s) PO QD 11/12/2013 Inactive hydrocodone 10 mg-acetaminophen 325 mg tablet RxNorm: 674674 1-2 Tablet(s) PO QID as needed for severe pain 11/12/2013 12/28/2013 Inactive Bystolic 10 mg tablet RxNorm: 108434 1 Tablet(s) PO QAM 11/12/2013 Inactive Soma 350 mg tablet RxNorm: 821297 Tablet(s) PO TAKE ON E TABLET BY MOUTH THREE TIMES A DAY NEEDED FOR MUSCLE SPASMS. THIS MUST LAST 30 DAYS BETWEEN REFILLS. 10/13/2013 12/10/2013 Inactive (Appended: Cont rolled substance eRx refill - RxReferenceNumber: [id number]) hydrocodone 10 mg-acetaminophen 325 mg tablet RxNorm: 218726 1-2 Tablet(s) PO QID as needed for severe pain 10/03/2013 11/11/2013 Inactive diclofenac sodium 75 mg tablet,delayed release RxNorm: 62969 8 1 Tablet(s) PO BID for pain 09/11/2013 12/10/2013 Inactive alprazolam 0.5 mg tablet RxNorm: 513988 1 Tablet(s) PO BID May refill on 8/17/13 09/01/2013 10/30/2013 Inactive prn hydrocodone 10 mg-acetaminophen 325 mg tablet RxNorm: 843114 1-2 Tablet(s) PO QID as needed for severe pain 09/01/2013 10/02/2013 Inactive triamterene 75 mg-hydrochlorothiazide 50 mg tablet RxNorm: 3 35128 1 Tablet(s) PO QD 08/04/2013 08/31/2014 Inactive cyclobenzaprine 10 mg tablet RxNorm: 843486 1 Tablet(s) PO TID prn spasm 08/04/2013 08/13/2013 Inactive clonidine 0.1 mg tablet RxNorm: 430660 1 Tablet(s) PO TID 08/04/2013 11/11/2013 Inactive replaces 0.2mg dose cyclobenzaprine 10 mg tablet RxNorm: 488070 1 Tablet(s) PO TID prn spasm 07/23/2013 08/01/2013 Inactive hydrocodone 10 mg-acetaminophen 325 mg tablet RxNorm: 913340 2 1-2 Tablet(s) PO QID as needed for severe pain 06/09/2013 08/07/2013 Inactive Singulair 10 mg tablet RxNorm: 116447 1 Tablet(s) PO QD 05/29/2013 Inactive Klor-Con 8 mEq tablet,extended release RxNorm: 082759 1 Tablet( s) PO BID 05/29/2013 02/26/2014 Inactive allopurinol 300 mg tablet RxNorm: 876167 1 Tablet(s) PO QD 05/29/20 13 11/19/2013 Inactive Bystolic 10 mg tablet RxNorm: 464080 1 Tablet(s) PO QAM take one daily in the morning. 05/29/2013 11/11/2013 Inactive scopolamine 1.5 mg 72 hr Transderm Patch RxNorm: 362692 Application TD Q72H for motion sickness 05/26/2013 07/22/2013 Inactive Soma 350 mg tablet RxNorm: 630699 1 Tablet(s) PO TID as needed for spasm 05/19/2013 10/13/2013 Inactive diclofenac sodium 75 mg tablet,delayed release RxNorm: 94968 8 1 Tablet(s) PO BID for pain 05/14/2013 07/22/2013 Inactive allopurinol 300 mg tablet RxNorm: 377586 1 Tablet(s) PO QD 04/25/20 13 05/28/2013 Inactive alprazolam 0.5 mg tablet RxNorm: 876180 1 Tablet(s) PO BID May refill on 04/26/13 04/25/2013 06/23/2013 Inactive prn Celebrex 200 mg capsule RxNorm: 272670 1 Capsule(s) PO QD 04/16/2013 12/29/2013 Inactive alprazolam 0.5 mg tablet RxNorm: 522623 1 Tablet(s) PO BID May refill on 04/26/13 04/16/2013 04/24/2013 Inactive prn Soma 350 mg tablet RxNorm: 001966 1 Tablet(s) PO TID as needed for spasm 04/16/2013 No Stop Date Active Lasix 40 mg tablet RxNorm: 528207 1 Tablet(s) PO QAM s hould take potassium supplementation with this medication 04/16/2013 06/14/2013 Inactive clonidine 0.1 mg tablet RxNorm: 344240 1 Tablet(s) PO TID 04/16/2013 08/03/2013 Inactive replaces 0.2mg dose prednisone 20 mg tablet RxNorm: 119833 1 Tablet(s) PO BID 04/16/2013 04/20/2013 Inactive diclofenac sodium 75 mg tablet,delayed release RxNorm: 76036 8 1 Tablet(s) PO BID for pain 04/14/2013 05/13/2013 Inactive hydrocodone 10 mg-acetaminophen 325 mg tablet RxNorm: 754276 2 1-2 Tablet(s) PO QID as needed for severe pain 04/14/2013 No Stop Date Active Lasix 40 mg tablet RxNorm: 626027 1 Tablet(s) PO QAM s hould take potassium supplementation with this medication 03/31/2013 04/15/2013 Inactive Celebrex 200 mg capsule RxNorm: 834301 1 Capsule(s) PO QD 03/31/2013 04/15/2013 Inactive alprazolam 0.5 mg tablet RxNorm: 935536 1 Tablet(s) PO BID 03/28/20 13 04/15/2013 Inactive prn hydrocodone 10 mg-acetaminophen 325 mg tablet RxNorm: 468924 2 1-2 Tablet(s) PO QID as needed for severe pain 03/10/2013 No Stop Date Active metformin ER 500 mg 24 hr tablet,extended release RxNorm: 86 1018 1 Tablet(s) PO QD 03/06/2013 07/22/2013 Inactive clindamycin 300 mg capsule RxNorm: 234256 2 Capsule(s) PO TID 03/0503/14/2013 Inactive Zaroxolyn 2.5 mg tablet RxNorm: 071165 1 Tablet(s) PO QAM 03/05/2013 05/19/2015 Inactive amlodipine 10 mg tablet RxNorm: 281886 1 Tablet(s) PO QD 03/03/2013 0 05/25/2013 Inactive Norvasc 10 mg tablet RxNorm: 086947 1 Tablet(s) PO QD 02/28/201307/11 Inactive Celebrex 200 mg capsule RxNorm: 650849 1 Capsule(s) PO QD 02/28/2013 03/30/2013 Inactive diclofenac sodium 75 mg tablet,delayed release RxNorm: 63492 8 1 Tablet(s) PO BID for pain 02/14/2013 03/15/2013 Inactive Soma 350 mg tablet RxNorm: 302264 1 Tablet(s) PO TID as needed for spasm 02/14/2013 No Stop Date Active hydrocodone 10 mg-acetaminophen 325 mg tablet RxNorm: 090305 2 1-2 Tablet(s) PO QID as needed for severe pain 02/14/2013 No Stop Date Active Norvasc 10 mg tablet RxNorm: 341308 1 Tablet(s) PO QD 02/10/201302/09 Inactive Celebrex 200 mg capsule RxNorm: 294405 1 Capsule(s) PO QD 01/27/2013 01/26/2013 Inactive Premarin 1.25 mg tablet RxNorm: 170181 1-2 Tablet(s) PO QD 01/28/20 13 06/25/2013 Inactive alprazolam 0.5 mg tablet RxNorm: 584473 1 Tablet(s) PO BID 01/28/20 13 02/25/2013 Inactive prn amlodipine 5 mg tablet RxNorm: 868394 1 Tablet(s) PO QD 01/27/2013 Inactive Celebrex 200 mg capsule RxNorm: 170127 1 Capsule(s) PO QD 01/27/2013 02/27/2013 Inactive gabapentin 600 mg tablet RxNorm: 975098 1 Tablet(s) PO QHS 01/16/20 13 07/22/2013 Inactive Soma 350 mg tablet RxNorm: 074691 1 Tablet(s) PO TID as needed for spasm 01/15/2013 No Stop Date Active hydrocodone 10 mg-acetaminophen 325 mg tablet RxNorm: 141076 2 1-2 Tablet(s) PO QID as needed for severe pain 01/15/2013 No Stop Date Active Soma 350 mg tablet RxNorm: 894036 1 Tablet(s) PO TID as needed for spasm 01/13/2013 No Stop Date Active alprazolam 0.5 mg tablet RxNorm: 945067 1 Tablet(s) PO BID 12/31/19 13 01/26/2013 Inactive prn diclofenac sodium 75 mg tablet,delayed release RxNorm: 94414 8 1 Tablet(s) PO BID for pain 12/09/2012 01/07/2013 Inactive gabapentin 600 mg tablet RxNorm: 829039 1 Tablet(s) PO QHS 12/10/19 13 01/07/2013 Inactive hydrocodone 10 mg-acetaminophen 325 mg tablet RxNorm: 933236 2 1-2 Tablet(s) PO QID as needed for severe pain 12/02/2012 No Stop Date Active Levaquin 750 mg tablet RxNorm: 481717 1 Tablet(s) PO QD 11/21/2012 Inactive Singulair 10 mg tablet RxNorm: 254093 1 Tablet(s) PO QD 11/11/2012 Inactive clonidine 0.2 mg tablet RxNorm: 867766 1 Tablet(s) PO TID 11/11/2012 04/15/2013 Inactive alprazolam 0.5 mg tablet RxNorm: 747595 1 Tablet(s) PO BID 11/12/19 13 12/10/2012 Inactive prn Klor-Con 8 mEq tablet,extended release RxNorm: 655661 1 Tablet( s) PO BID 11/11/2012 03/04/2013 Inactive hydrocodone 10 mg-acetaminophen 325 mg tablet RxNorm: 735262 2 1-2 Tablet(s) PO QID as needed for severe pain 11/06/2012 No Stop Date Active alprazolam 0.5 mg tablet RxNorm: 011889 1 Tablet(s) PO BID 10/15/19 13 11/10/2012 Inactive prn hydrocodone-acetaminophen 10 mg-325 mg tablet RxNorm: 221344 2 1-2 Tablet(s) PO QID as needed for severe pain 10/10/2012 10/09/2012 Inactive allopurinol 300 mg tablet RxNorm: 800646 1 Tablet(s) PO QD 09/20/19 13 12/18/2012 Inactive alprazolam 0.5 mg tablet RxNorm: 259598 1 Tablet(s) PO BID 09/17/19 13 10/14/2012 Inactive prn hydrocodone-acetaminophen 10 mg-325 mg tablet RxNorm: 554412 2 1-2 Tablet(s) PO QID as needed for severe pain 08/22/2012 08/21/2012 Inactive Norvasc 10 mg tablet RxNorm: 228022 1 Tablet(s) PO QD 08/12/201201/10 Inactive Premarin 1.25 mg tablet RxNorm: 545733 1-2 Tablet(s) PO QD 07/30/20 12 12/26/2012 Inactive alprazolam 0.5 mg tablet RxNorm: 343038 1 Tablet(s) PO BID 07/29/20 12 08/27/2012 Inactive prn Klor-Con 8 mEq tablet,extended release RxNorm: 286801 1 Tablet( s) PO BID 07/29/2012 11/10/2012 Inactive hydrocodone-acetaminophen 10 mg-325 mg tablet RxNorm: 659890 2 1-2 Tablet(s) PO QID as needed for severe pain 07/29/2012 No Stop Date Active Premarin 1.25 mg tablet RxNorm: 326118 1-2 Tablet(s) PO QD 07/29/20 12 07/29/2012 Inactive clonidine 0.2 mg tablet RxNorm: 492571 1 Tablet(s) PO TID 07/29/2012 10/28/2012 Inactive ketorolac 10 mg tablet RxNorm: 070088 1 Tablet(s) PO QID prn he adache 07/18/2012 No Stop Date Active hydrocodone-acetaminophen 10 mg-325 mg tablet RxNorm: 413396 2 1-2 Tablet(s) PO QID as needed for severe pain 07/03/2012 No Stop Date Active amlodipine 5 mg tablet RxNorm: 050223 1 Tablet(s) PO QD 07/02/2012 Inactive allopurinol 300 mg tablet RxNorm: 474151 1 Tablet(s) PO QD 07/02/20 12 09/19/2012 Inactive Celebrex 200 mg capsule RxNorm: 370294 1 Capsule(s) PO QD for j oint pain 06/26/2012 10/23/2012 Inactive diclofenac sodium 75 mg tablet,delayed release RxNorm: 01961 8 1 Tablet(s) PO BID for pain 06/19/2012 09/16/2012 Inactive hydrocodone-acetaminophen 10 mg-325 mg tablet RxNorm: 715927 2 1-2 Tablet(s) PO QID as needed for severe pain 06/10/2012 No Stop Date Active alprazolam 0.5 mg tablet RxNorm: 767954 1 Tablet(s) PO BID 06/03/20 12 07/02/2012 Inactive prn ketorolac 10 mg tablet RxNorm: 156831 1 Tablet(s) PO Q8H 05/27/2012 0 01/21/2019 Inactive as needed for headache hydrocodone-acetaminophen 10 mg-325 mg tablet RxNorm: 684724 2 1-2 Tablet(s) PO QID as needed for severe pain 05/15/2012 No Stop Date Active allopurinol 300 mg tablet RxNorm: 465526 1 Tablet(s) PO QD 05/14/20 12 06/12/2012 Inactive allopurinol 300 mg tablet RxNorm: 196570 1 Tablet(s) PO QD 05/14/20 12 05/13/2012 Inactive amlodipine 5 mg tablet RxNorm: 127961 1 Tablet(s) PO QD 05/01/2012 Inactive amlodipine 5 mg Tab RxNorm: 417978 1 Tablet(s) PO QD 05/01/201204/30 Inactive Celebrex 200 mg capsule RxNorm: 581822 1 Capsule(s) PO QD for j oint pain 05/01/2012 06/25/2012 Inactive Singulair 10 mg tablet RxNorm: 135671 1 Tablet(s) PO QD 05/01/2012 Inactive alprazolam 0.5 mg tablet RxNorm: 557859 1 Tablet(s) PO BID 05/01/20 12 05/30/2012 Inactive prn Celebrex 200 mg Cap RxNorm: 243630 1 Capsule(s) PO QD for joint radu n 05/01/2012 04/30/2012 Inactive hydrocodone-acetaminophen 10 mg-325 mg tablet RxNorm: 105832 2 1-2 Tablet(s) PO QID as needed for severe pain 04/19/2012 No Stop Date Active Lasix 40 mg tablet RxNorm: 839345 1 Tablet(s) PO QAM s hould take potassium supplementation with this medication 04/05/2012 06/03/2012 Inactive alprazolam 0.5 mg Tab RxNorm: 046290 1 Tablet(s) PO BID 04/05/2012 Inactive prn hydrocodone-acetaminophen 10 mg-325 mg Tab RxNorm: 8390686 1-2 Tablet(s) PO QID as needed for severe pain 03/25/2012 03/24/2012 Inactive clonidine 0.2 mg Tab RxNorm: 554929 1 Tablet(s) PO TID 03/08/2012 Inactive alprazolam 0.5 mg Tab RxNorm: 403116 1 Tablet(s) PO BID 03/08/2012 Inactive prn Soma 350 mg tablet RxNorm: 064027 1 Tablet(s) PO TID for spasm 02/0903/18/2012 Inactive clonidine 0.2 mg tablet RxNorm: 022954 1 Tablet(s) PO TID 03/08/2012 07/28/2012 Inactive Celebrex 200 mg Cap RxNorm: 901650 1 Capsule(s) PO QD for joint radu n 03/01/2012 04/29/2012 Inactive amlodipine 5 mg Tab RxNorm: 673022 1 Tablet(s) PO QD 02/26/201202/24 Inactive amlodipine 5 mg Tab RxNorm: 646402 1 Tablet(s) PO QD 02/26/201204/25 Inactive Bactroban 2 % Ointment RxNorm: 779900 Application TOP QID to sores 02/23/2012 No Stop Date Active amlodipine 2.5 mg tablet RxNorm: 559152 1 Tablet(s) PO QHS 02/20/20 12 02/25/2012 Inactive doxycycline hyclate 100 mg Cap RxNorm: 0483588 1 Capsule(s) PO BID 02/20/2012 02/29/2012 Inactive hydrocodone-acetaminophen 10 mg-325 mg Tab RxNorm: 0207018 1-2 T ablet(s) PO QID 02/08/2012 No Stop Date Active alprazolam 0.5 mg Tab RxNorm: 907335 1 Tablet(s) PO BID 02/08/2012 Inactive prn Singulair 10 mg Tab RxNorm: 605405 1 Tablet(s) PO QD 02/08/201204/30 Inactive Soma 350 mg Tab RxNorm: 543451 1 Tablet(s) PO TID for spasm 012 03/07/2012 Inactive Soma 350 mg Tab RxNorm: 525962 1 Tablet(s) PO TID for spasm 02/05/2012 Inactive diclofenac sodium 75 mg tablet,delayed release RxNorm: 56247 8 1 Tablet(s) PO BID for pain 02/01/2012 03/18/2012 Inactive Celebrex 200 mg Cap RxNorm: 025296 1 Capsule(s) PO QD for joint radu n 01/30/2012 02/28/2012 Inactive Lasix 40 mg Tab RxNorm: 935202 1 Tablet(s) PO QAM 01/24/2012 03/18/20 12 Inactive potassium chloride ER 20 mEq tablet,extended release(part/cr yst) RxNorm: 698947 2 Tablet(s) PO BID 01/24/2012 02/22/2012 Inactive alprazolam 0.5 mg Tab RxNorm: 115497 1 Tablet(s) PO BID 01/11/2012 Inactive prn hydrocodone-acetaminophen 10 mg-325 mg Tab RxNorm: 6428371 1-2 T ablet(s) PO QID 01/11/2012 No Stop Date Active Ambien 10 mg Tab RxNorm: 877584 1 Tablet(s) PO QHS 01/11/2012 012 Inactive Klor-Con 8 mEq Tab RxNorm: 834805 1 Tablet(s) PO BID 01/11/201201/22 Inactive diclofenac sodium 75 mg Tab, Delayed Release RxNorm: 530990 1 Tablet(s) PO BID for pain 01/10/2012 01/31/2012 Inactive Ambien 10 mg Tab RxNorm: 825828 1 Tablet(s) PO QHS 12/11/2011 012 Inactive alprazolam 0.5 mg Tab RxNorm: 914140 1 Tablet(s) PO BID 12/11/2011 Inactive prn hydrocodone 10 mg-acetaminophen 325 mg tablet RxNorm: 253907 1-2 Tablet(s) PO TID 11/28/2011 No Stop Date Active as needed for pa in - Previous quantity #240, will start dosing for #180 in April 2011 per Doctor Td. Ambien 10 mg Tab RxNorm: 812712 1 Tablet(s) PO QHS 11/09/2011 012 Inactive alprazolam 0.5 mg Tab RxNorm: 479975 1 Tablet(s) PO BID 11/09/2011 Inactive prn hydrocodone-acetaminophen 10 mg-325 mg Tab RxNorm: 2384175 1-2 T ablet(s) PO TID 11/06/2011 No Stop Date Active as needed for pain - Previous quantity #240, will start dosing for #180 in April 2011 per Doctor Td. Singulair 10 mg Tab RxNorm: 744530 1 Tablet(s) PO QD 10/13/201110/12 Inactive Singulair 10 mg Tab RxNorm: 382179 1 Tablet(s) PO QD 10/13/201102/06 Inactive hydrocodone-acetaminophen 10 mg-325 mg Tab RxNorm: 3924788 1-2 T ablet(s) PO TID 10/10/2011 10/09/2011 Inactive as needed for pain - Previous quantity #240, will start dosing for #180 in April 2011 per Doctor Td. hydrocodone-acetaminophen 10 mg-325 mg Tab RxNorm: 6863707 1-2 T ablet(s) PO TID 10/09/2011 No Stop Date Active as needed for pain - Previous quantity #240, will start dosing for #180 in April 2011 per Doctor Td. Klor-Con 8 mEq Tab RxNorm: 956750 1 Tablet(s) PO BID 10/02/201101/09 Inactive triamterene 75 mg-hydrochlorothiazide 50 mg tablet RxNorm: 3 01011 1 Tablet(s) PO QD 09/14/2011 03/06/2013 Inactive Ambien 10 mg Tab RxNorm: 639726 1 Tablet(s) PO QHS 09/14/2011 012 Inactive hydrocodone-acetaminophen 10 mg-325 mg Tab RxNorm: 4605659 1-2 T ablet(s) PO TID 09/14/2011 No Stop Date Active as needed for pain - Previous quantity #240, will start dosing for #180 in April 2011 per Doctor Td. alprazolam 0.5 mg Tab RxNorm: 437314 1 Tablet(s) PO BID 09/14/2011 Inactive prn Zithromax 500 mg Tab RxNorm: 453519 1 Tablet(s) PO QD 09/13/201109/10 Inactive prednisone 20 mg Tab RxNorm: 791917 1 Tablet(s) PO BID 08/31/2011 Inactive Ambien 10 mg Tab RxNorm: 937087 1 Tablet(s) PO QHS 08/17/2011 011 Inactive hydrocodone-acetaminophen 10 mg-325 mg Tab RxNorm: 6002222 1-2 T ablet(s) PO TID 08/17/2011 No Stop Date Active as needed for pain - Previous quantity #240, will start dosing for #180 in April 2011 per Doctor Td. clonidine 0.2 mg Tab RxNorm: 573290 1 Tablet(s) PO TID 08/17/201112/2011 Inactive Ambien 10 mg Tab RxNorm: 509174 1 Tablet(s) PO QHS 08/17/2011 019 Inactive alprazolam 0.5 mg Tab RxNorm: 324432 1 Tablet(s) PO BID 08/17/2011 Inactive prn hydrocodone-acetaminophen 10 mg-325 mg Tab RxNorm: 9800937 1-2 T ablet(s) PO TID 08/17/2011 08/16/2011 Inactive as needed for pain - Previous quantity #240, will start dosing for #180 in April 2011 per Doctor Td. Singulair 10 mg Tab RxNorm: 087663 1 Tablet(s) PO QD 08/17/201108/16 Inactive Klor-Con 8 mEq Tab RxNorm: 283693 1 Tablet(s) PO QD 08/17/20112011 Inactive alprazolam 0.5 mg Tab RxNorm: 071752 1 Tablet(s) PO BID 07/20/2011 Inactive prn Ambien 10 mg Tab RxNorm: 744133 1 Tablet(s) PO QHS 07/20/2011 012 Inactive Singulair 10 mg Tab RxNorm: 737520 1 Tablet(s) PO QD 07/20/201107/19 Inactive Premarin 1.25 mg tablet RxNorm: 639231 2 Tablet(s) PO QD 07/20/2011 0 01/21/2019 Inactive Premarin 1.25 mg tablet RxNorm: 510139 1-2 Tablet(s) PO QD 07/20/20 11 12/16/2011 Inactive Premarin 1.25 mg Tab RxNorm: 801114 1-2 Tablet(s) PO QD 07/06/2011 Inactive alprazolam 0.5 mg Tab RxNorm: 552265 1 Tablet(s) PO BID 06/22/2011 Inactive prn alprazolam 0.5 mg Tab RxNorm: 714200 1 Tablet(s) PO BID 06/22/2011 Inactive prn Premarin 1.25 mg Tab RxNorm: 150089 1 Tablet(s) PO QD m ay do 90 day fill if desired 06/22/2011 07/05/2011 Inactive hydrocodone-acetaminophen 10 mg-325 mg Tab RxNorm: 7546368 1-2 T ablet(s) PO TID 06/22/2011 No Stop Date Active as needed for pain - Previous quantity #240, will start dosing for #180 in April 2011 per Doctor Td. clonidine 0.2 mg Tab RxNorm: 015267 1 Tablet(s) PO TID 05/25/201103/2011 Inactive triamterene-hydrochlorothiazide 75 mg-50 mg Tab RxNorm: 3108 18 1 Tablet(s) PO QD 05/25/2011 09/13/2011 Inactive alprazolam 0.5 mg Tab RxNorm: 450671 1 Tablet(s) PO BID 05/25/2011 Inactive prn hydrocodone-acetaminophen 10 mg-325 mg Tab RxNorm: 1130094 1-2 T ablet(s) PO TID 05/25/2011 No Stop Date Active as needed for pain - Previous quantity #240, will start dosing for #180 in April 2011 per Doctor Td. Robaxin-750 750 mg Tab RxNorm: 961015 2 Tablet(s) PO QHS 05/22/2011 1 Inactive prn spasm hydrocodone-acetaminophen 10 mg-325 mg Tab RxNorm: 3195345 1-2 T ablet(s) PO TID 04/26/2011 No Stop Date Active as needed for pain - Previous quantity #240, will start dosing for #180 in April 2011 per Doctor Td. alprazolam 0.5 mg Tab RxNorm: 035141 1 Tablet(s) PO BID 04/25/2011 Inactive prn Klor-Con 8 mEq Tab RxNorm: 161287 1 Tablet(s) PO QD 03/30/20112010 Inactive Klor-Con 8 mEq Tab RxNorm: 992209 1 Tablet(s) PO QD 03/29/20112010 Inactive hydrocodone-acetaminophen 10 mg-325 mg Tab RxNorm: 0329941 1-2 T ablet(s) PO TID 03/20/2011 04/25/2011 Inactive as needed for pain - Previous quantity #240, will start dosing for #180 in April 2011 per Doctor Td. alprazolam 0.5 mg Tab RxNorm: 186236 1 Tablet(s) PO BID prn 011 03/30/2011 Inactive Ambien 10 mg Tab RxNorm: 821786 1 Tablet(s) PO QHS 03/01/2011 011 Inactive cyclobenzaprine 10 mg Tab RxNorm: 717209 1 Tablet(s) PO TID 011 03/18/2012 Inactive cyclobenzaprine 10 mg Tab RxNorm: 209687 1 Tablet(s) PO TID 011 01/08/2011 Inactive cyclobenzaprine 10 mg Tab RxNorm: 944454 1 Tablet(s) PO TID 011 12/20/2010 Inactive terbinafine 250 mg Tab RxNorm: 750689 1 Tablet(s) PO QD 12/12/2010 Inactive triamterene-hydrochlorothiazide 75 mg-50 mg Tab RxNorm: 3108 18 1 Tablet(s) PO QD 12/07/2010 01/12/2020 Inactive Klor-Con 8 8 mEq Tab RxNorm: 279093 1 Tablet(s) PO QD 12/07/201001/08 Inactive Premarin 1.25 mg Tab RxNorm: 127608 2 Tablet(s) PO QD 12/07/201001/08 Inactive clonidine 0.2 mg Tab RxNorm: 203844 1 Tablet(s) PO TID 12/07/2010 Inactive hydrocodone-acetaminophen 7.5 mg-650 mg Tab RxNorm: 119631 1 Ta blet(s) PO Q4H 12/05/2010 01/21/2019 Inactive hydrocodone-acetaminophen 7.5 mg-650 mg Tab RxNorm: 184911 1 Ta blet(s) PO Q4H 10/26/2010 11/14/2010 Inactive hydrocodone-acetaminophen 7.5 mg-650 mg Tab RxNorm: 920814 1 Ta blet(s) PO Q4H 10/13/2010 10/25/2010 Inactive hydrocodone-acetaminophen 7.5 mg-650 mg Tab RxNorm: 647811 1 Ta blet(s) PO Q4H 09/15/2010 09/12/2010 Inactive alprazolam 0.5 mg Tab RxNorm: 002302 1 Tablet(s) PO BID prn 011 09/12/2010 Inactive terbinafine 250 mg Tab RxNorm: 346793 1 Tablet(s) PO QD 09/05/2010 Inactive hydrocodone-acetaminophen 7.5 mg-650 mg Tab RxNorm: 488830 1 Ta blet(s) PO Q4H 08/29/2010 09/17/2010 Inactive alprazolam 0.5 mg Tab RxNorm: 106027 1 Tablet(s) PO BID prn 010 09/27/2010 Inactive alprazolam 0.5 mg Tab RxNorm: 494696 1 Tablet(s) PO BID prn 010 09/06/2010 Inactive Klor-Con 8 mEq Tab RxNorm: 300064 1 Tablet(s) PO QD 08/08/20102010 Inactive hydrocodone-acetaminophen 7.5 mg-650 mg Tab RxNorm: 815029 1 Ta blet(s) PO Q4H 08/08/2010 08/27/2010 Inactive Ambien 10 mg Tab RxNorm: 693920 1 Tablet(s) PO QHS 08/08/2010 Inactive clonidine 0.2 mg Tab RxNorm: 497332 1 Tablet(s) PO TID 08/08/2010 Inactive Premarin 1.25 mg Tab RxNorm: 564477 2 Tablet(s) PO QD 08/08/201009/12 Inactive Ambien 10 mg Tab RxNorm: 464386 1 Tablet(s) PO QHS 07/18/2010 Inactive alprazolam 0.5 mg Tab RxNorm: 213667 1 Tablet(s) PO BID prn 010 08/07/2010 Inactive hydrocodone-acetaminophen 7.5 mg-650 mg Tab RxNorm: 589809 1 Ta blet(s) PO Q4H 07/12/2010 07/31/2010 Inactive clonidine 0.2 mg Tab RxNorm: 419148 1 Tablet(s) PO TID 06/20/2010 Inactive terbinafine 250 mg Tab RxNorm: 552731 1 Tablet(s) PO QD 05/24/2010 Inactive Clonidine 0.2 mg Tab RxNorm: 661690 1 Tablet(s) PO TID 05/24/201006/2010 Inactive Ambien 10 mg Tab RxNorm: 423496 1 Tablet(s) PO QHS 05/24/2010 010 Inactive alprazolam 0.5 mg Tab RxNorm: 960608 1 Tablet(s) PO BID 05/24/2010 Inactive Klor-Con 8 mEq Tab RxNorm: 272006 1 Tablet(s) PO QD 05/24/20102009 Inactive alprazolam 0.5 mg Tab RxNorm: 587858 2 Tablet(s) PO QD prn 05/24/20 10 07/17/2010 Inactive triamterene-hydrochlorothiazide 75 mg-50 mg Tab RxNorm: 3108 18 1 Tablet(s) PO QD 05/24/2010 11/19/2010 Inactive Ambien 10 mg Tab RxNorm: 617219 1 Tablet(s) PO QHS 05/23/2010 010 Inactive Alprazolam 0.5 mg Tab RxNorm: 438575 2 Tablet(s) PO QD prn 05/23/2005/23/2010 Inactive Premarin 1.25 mg Tab RxNorm: 391004 2 Tablet(s) PO QD 05/19/201007/12 Inactive Hydrocodone-Acetaminophen 7.5 mg-650 mg Tab RxNorm: 402903 1 Ta blet(s) PO Q4H 05/19/2010 03/20/2011 Inactive Prednisone 20 mg Tab RxNorm: 282594 1 Tablet(s) PO BID 05/17/2010 Inactive Prednisone 20 mg Tab RxNorm: 155309 1 Tablet(s) PO BID 05/06/201001/2010 Inactive Premarin 1.25 mg Tab RxNorm: 513226 Tablet(s) PO 2 M-W-F, and 1 By-Tr-Jzm-Sun 05/05/2010 08/02/2010 Inactive Premarin 1.25 mg Tab RxNorm: 280827 Tablet(s) PO 2 M-W-F, and 1 Fk-Lx-Uus-Sun 05/04/2010 05/04/2010 Inactive Premarin 1.25 mg Tab RxNorm: 177676 Tablet(s) PO 2 M-W-F, and 1 Kk-Rr-Ydv-Sun 05/04/2010 05/03/2010 Inactive Prednisone 20 mg Tab RxNorm: 787512 1 Tablet(s) PO BID 04/27/2010 Inactive Alprazolam 0.5 mg Tab RxNorm: 500086 2 Tablet(s) PO QD prn 04/26/20 10 05/22/2010 Inactive Clindamycin 300 mg Cap RxNorm: 355171 2 Capsule(s) PO TID 04/05/2010 04/18/2010 Inactive Terbinafine 250 mg Tab RxNorm: 440495 1 Tablet(s) PO QD 04/04/2010 Inactive Hydrocodone-Acetaminophen 7.5 mg-650 mg Tab RxNorm: 034935 1 Ta blet(s) PO Q4H 03/30/2010 04/18/2010 Inactive Avelox 400 mg Tab RxNorm: 044803 1 Tablet(s) PO QD 03/09/2010 010 Inactive Hydrocodone-Acetaminophen 7.5 mg-650 mg Tab RxNorm: 903633 1 Ta blet(s) PO Q4H 03/08/2010 03/27/2010 Inactive Alprazolam 0.5 mg Tab RxNorm: 809657 2 Tablet(s) PO QD prn 03/08/20 10 04/25/2010 Inactive Klor-Con 8 mEq Tab RxNorm: 308975 1 Tablet(s) PO QD when takes lasi x 03/07/2010 09/29/2019 Inactive Premarin 1.25 mg Tab RxNorm: 720075 1 Tablet(s) PO QD 03/03/201003/11 Inactive Alprazolam 0.5 mg Tab RxNorm: 200275 1 Tablet(s) PO BID PRN 010 No Stop Date Active triamterene-hydrochlorothiazide 75 mg-50 mg Tab RxNorm: 3108 18 1 Tablet(s) PO QD 02/09/2010 02/03/2011 Inactive Hydrocodone-Acetaminophen 10 mg-750 mg Tab RxNorm: 773960 1 Tablet(s) PO Q4H PRN 02/09/2010 03/20/2011 Inactive Clonidine 0.2 mg Tab RxNorm: 187169 1 Tablet(s) PO TID 01/13/201009/2009 Inactive Alprazolam 0.5 mg Tab RxNorm: 102329 1 Tablet(s) PO BID PRN 010 01/12/2010 Inactive Hydrocodone-Acetaminophen 10 mg-750 mg Tab RxNorm: 438326 1 Tablet(s) PO Q4H PRN 01/13/2010 01/12/2010 Inactive ANGELIQ 1 mg-0.5 mg Tab RxNorm: 4563731 1 Tablet(s) PO QD 12/27/2009 01/23/2010 Inactive Lasix 40 mg Tab RxNorm: 831903 1 Tablet(s) PO QAM 12/14/2009 06/11/20 10 Inactive Vitamin B12 1000mcg Tablet RxNorm: 1 Tablet(s) PO QD No Start Date Active cyclobenzaprine 10 mg tablet RxNorm: 193954 1 Tablet(s) PO TID as needed DO NOT USE WITH BACLOFEN No Start Date Active Vitamin D 5,000 unit Tab RxNorm: 1 Tablet(s) PO QD No Start Date Active vitamin E (dl, acetate) 400 unit Cap RxNorm: 176593 1 Capsule(s ) PO QD No Start Date Active Benadryl 25 mg Cap RxNorm: 7146614 Capsule(s) PO PRN No Start Date Inactive amitriptyline 100 mg tablet RxNorm: 660629 1 Tablet(s) PO QHS No St art Date 11/27/2016 Inactive Zithromax Z-Dustin 250 mg tablet RxNorm: 601314 Tablet(s) PO as di rected No Start Date 07/22/2013 Inactive Klor-Con 8 mEq tablet,extended release RxNorm: 144960 1 Tablet( s) PO BID No Start Date 07/28/2012 Inactive scopolamine 1.5 mg 72 hr Transderm Patch RxNorm: 244472 Application TD Q72H for motion sickness No Start Date 05/25/2013 Inactive Klonopin 1 mg tablet RxNorm: 442598 1-2 Tablet(s) PO QHS as nee ded for sleep No Start Date 06/20/2015 Inactive Klor-Con M20 mEq tablet,extended release RxNorm: 524152 2 Tablet(s) PO BID to use with lasix No Start Date 11/11/2013 Inactive Bystolic 5 mg tablet RxNorm: 062934 1 Tablet(s) PO QD No Start Date 1 Inactive Bystolic 10 mg tablet RxNorm: 209343 1 Tablet(s) PO BID No Start Da te 07/06/2015 Inactive Premarin 1.25 mg Tab RxNorm: 006242 Tablet(s) PO 2 -, and 1 [facility] No Start Date 05/03/2010 Inactive baclofen 20 mg tablet RxNorm: 700470 1 Tablet(s) PO TID as needed for muscle spasm No Start Date 07/22/2015 Inactive hydrocodone-acetaminophen 7.5 mg-650 mg Tab RxNorm: 543258 1 Tablet(s) PO Q4H as needed for pain No Start Date 03/20/2011 Inactive albuterol sulfate 1.25 mg/3 mL Neb Solution RxNorm: 012820 1 Unit Dose INH Q4H 2boxes No Start Date 09/06/2015 Inactive Butrans 20 mcg/hour Transderm Patch RxNorm: 781400 1 TD WEEKLY apply to skin weekly after removing previous. No Start Date 07/22/2013 Inactive Medrol (Dustin) 4 mg tablets in a dose pack RxNorm: 341699 Tablet(s) PO As Directed No Start Date 07/30/2016 Inactive hydrocodone-acetaminophen 10 mg-325 mg Tab RxNorm: 4535282 1-2 Tablet(s) PO TID as needed for pain No Start Date 03/19/2011 Inactive Klonopin 1 mg tablet RxNorm: 833230 1 Tablet(s) PO QHS No Start Date 02/28/2016 Inactive honey topical RxNorm: topical No Start Date 06/16/2018 Inactive Clonidine 0.2 mg Tab RxNorm: 123401 1 Tablet(s) PO TID No Start Date 01/12/2010 Inactive ketorolac 10 mg tablet RxNorm: 138359 1 Tablet(s) PO Q8H No Start D ate 03/18/2012 Inactive as needed for headache Singulair 10 mg Tab RxNorm: 147080 1 Tablet(s) PO QD No Start Date Inactive Premarin 1.25 mg Tab RxNorm: 789532 1 Tablet(s) PO QD No Start Date 1 Inactive Flonase 50 mcg/Actuation Nasal [place] RxNorm: 2169153 1 [place] CECELIA AL BID No Start Date 03/18/2012 Inactive Terbinafine 250 mg Tab RxNorm: 809536 1 Tablet(s) PO QD No Start Da te 04/03/2010 Inactive Fexofenadine 180 mg Tab RxNorm: 6561153 1 Tablet(s) PO QD No Start Date 09/06/2015 Inactive baclofen 20 mg tablet RxNorm: 218332 1 Tablet(s) PO TID as needed N o Start Date 05/25/2014 Inactive Diovan 160 mg Tab RxNorm: 126002 1 Tablet(s) PO QD No Start Date 09/12 Inactive mupirocin 2 % topical ointment RxNorm: 837078 1 Application TOP QID No Start Date 04/25/2016 Inactive ZOFRAN ODT 4 mg Tab, Rapid Dissolve RxNorm: 537159 1 Tablet(s) PO Q4H No Start Date 03/18/2012 Inactive as needed for nausea and vomiting Alprazolam 0.5 mg Tab RxNorm: 738440 1 Tablet(s) PO BID PRN No Star t Date 01/12/2010 Inactive cyclobenzaprine 10 mg tablet RxNorm: 696200 1 Tablet(s) PO TID as needed for muscle spasm No Start Date 10/08/2017 Inactive Albuterol 0.083% Aerosol Solution RxNorm: 1 Appl ication INH Q4H Use one ampule every 4 hrs with nebulizer as needed for shortness of breath. No Start Date 10/09/2010 Inactive lorazepam 1 mg tablet RxNorm: 224386 1 1/2 Tablet(s) PO QHS No Star t Date 02/02/2016 Inactive Melatonin 3 mg Tab RxNorm: 187173 Tablet(s) PO PRN No Start Date 07/11 Inactive Medrol (Dustin) 4 mg Tabs in a Dose Pack RxNorm: 046212 Tablet(s) PO N o Start Date 11/28/2010 Inactive lorazepam 1 mg tablet RxNorm: 071148 1 Tablet(s) PO QHS as need ed for sleep No Start Date 01/30/2016 Inactive hydrocodone-acetaminophen 10 mg-325 mg Tab RxNorm: 4006843 1-2 Tablet(s) PO QID as needed for severe pain No Start Date 03/24/2012 Inactive celecoxib 200 mg capsule RxNorm: 594478 1 Capsule(s) PO BID No Star t Date 06/26/2019 Inactive amlodipine 5 mg-benazepril 20 mg capsule RxNorm: 012975 1 Capsu le(s) PO QD No Start Date 04/10/2017 Inactive Bystolic 20 mg tablet RxNorm: 082645 1/2 Tablet(s) PO QAM No Start Date 01/23/2016 Inactive Bystolic 20 mg tablet RxNorm: 349470 1 Tablet(s) PO QAM No Start Da te 04/25/2016 Inactive Ambien 10 mg Tab RxNorm: 177291 1 Tablet(s) PO QHS No Start Date 05/11 Inactive Klor-Con 8 mEq Tab RxNorm: 969095 1 Tablet(s) PO QD when takes lasix No Start Date 03/06/2010 Inactive aspirin 81 mg tablet RxNorm: 273711 1 Tablet(s) PO QD No Start Date 0 01/29/2018 Inactive hydrocodone-acetaminophen 10 mg-325 mg Tab RxNorm: 8445543 1-2 T ablet(s) PO QID No Start Date 01/10/2012 Inactive Bystolic 10 mg tablet RxNorm: 933504 1 Tablet(s) PO QAM take one daily in the morning. No Start Date 05/28/2013 Inactive nystatin 100,000 unit/mL Oral Susp RxNorm: 047287 5 Milliliter( s) PO QID No Start Date 03/18/2012 Inactive swish and spit scopolamine 1.5 mg 72 hr Transderm Patch RxNorm: 945907 1 Unit Dose TD Q72H for motion sickness No Start Date 12/23/2013 Inactive Hydrocodone-Acetaminophen 10 mg-750 mg Tab RxNorm: 136846 1 Tablet(s) PO Q4H PRN No Start Date 01/12/2010 Inactive Soma 350 mg tablet RxNorm: 937719 1 Tablet(s) PO TID as needed for spasm No Start Date 01/12/2013 Inactive baclofen 10 mg tablet RxNorm: 436572 1 Tablet(s) PO TID as needed for muscle spasm No Start Date 09/18/2019 Inactive Soma 350 mg Tab RxNorm: 042234 1 Tablet(s) PO TID for spasm No Star t Date 01/31/2012 Inactive Co Q-10 400 mg capsule RxNorm: 815843 1 Capsule(s) PO QD No Start D ate 01/21/2019 Inactive nystatin 100,000 unit/gram topical cream RxNorm: 128722 Applica tion TOP BID No Start Date 03/22/2015 Inactive Exforge 5 mg-160 mg Tab RxNorm: 920309 1 Tablet(s) PO QD No Start D ate 10/09/2010 Inactive Hydrocodone-Acetaminophen 7.5 mg-650 mg Tab RxNorm: 126319 1 Ta blet(s) PO Q4H No Start Date 03/07/2010 Inactive Robaxin-750 750 mg Tab RxNorm: 195474 1-2 Tablet(s) PO TID prn spasm No Start Date 05/21/2011 Inactive amlodipine 5 mg tablet RxNorm: 478545 1 Tablet(s) PO QHS No Start D ate 09/29/2015 Inactive oxycodone-acetaminophen 10 mg-325 mg tablet RxNorm: 0710392 1-2 Tablet(s) PO Q6H No Start Date 06/16/2018 Inactive Triamterene-Hydrochlorothiazide 75 mg-50 mg Tab RxNorm: 3108 18 1 Tablet(s) PO QD No Start Date 02/08/2010 Inactive Alprazolam 0.5 mg Tab RxNorm: 658592 2 Tablet(s) PO QD prn No Start Date 03/07/2010 Inactive Bystolic 20 mg tablet RxNorm: 794743 1 Tablet(s) PO QAM No Start Da te 08/17/2015 Inactive ketorolac 10 mg tablet RxNorm: 620794 1 Tablet(s) PO QID prn he adache No Start Date 07/17/2012 Inactive acyclovir 800 mg Tab RxNorm: 760138 1 Tablet(s) PO BID No Start Date 03/18/2012 Inactive duloxetine 60 mg capsule,delayed release RxNorm: 096668 1 Capsu le(s) PO QD No Start Date 09/29/2015 Inactive Norvasc 5 mg tablet RxNorm: 278923 1 Tablet(s) PO QHS No Start Date 1 10/18/2014 Inactive promethazine 25 mg tablet RxNorm: 113831 1 Tablet(s) PO Q8H use sparingly No Start Date 07/22/2013 Inactive alprazolam 0.5 mg tablet RxNorm: 911470 3 Tablet(s) PO QHS No Start Date 06/06/2015 Inactive Lunesta 3 mg tablet RxNorm: 960955 1 Tablet(s) PO QHS No Start Date 0 09/20/2017 Inactive hydrocodone-acetaminophen 10 mg-325 mg Tab RxNorm: 2096447 1-2 Tablet(s) PO TID as needed for pain No Start Date 12/10/2011 Inactive Coricidin HBP Cough & Cold 4 mg-30 mg Tab RxNorm: 6155688 Tablet (s) PO PRN No Start Date 10/09/2010 Inactive Bactroban 2 % Ointment RxNorm: 800603 Application TOP QID to so res No Start Date 02/22/2012 Inactive Flonase 50 mcg/actuation Nasal [place] RxNorm: 098284 2 [place] CECELIA AL QHS No Start Date 03/03/2014 Inactive Medication Administered No Medication Administered data Immunizations Vaccine Codes Date Status Tetanus, Diptheria, Pertussis CVX: 115 02/27/2014 Results Observation Observation Code Item Item Code Result Date S [facility] Location COMPREHENSIVE METABOLIC 07756 AST 15 U/L 2019 Unknown COMPREHENSIVE METABOLIC 44189 ALT 13 U/L 2019 Unknown COMPREHENSIVE METABOLIC 99826 BUN 12 mg/dL 2019 Unknown COMPREHENSIVE METABOLIC 98455 ALBUMIN 3.9 g/dL 2019 Unknown COMPREHENSIVE METABOLIC 97058 CHLORIDE 97 mmol/L 2019 Unknown COMPREHENSIVE METABOLIC 75463 Bili Total 0.4 mg/dL 09/29 Unknown COMPREHENSIVE METABOLIC 65016 ALK PHOS 130 U/L 2019 Unknown COMPREHENSIVE METABOLIC 50745 SODIUM 136 mmol/L 09/29 Unknown COMPREHENSIVE METABOLIC 21907 CREATININE 0.92 mg/dL 09/11 Unknown COMPREHENSIVE METABOLIC 92233 CALCIUM 9.1 mg/dL 2019 Unknown COMPREHENSIVE METABOLIC 17310 POTASSIUM 4.4 mmol/L 09/29 Unknown COMPREHENSIVE METABOLIC 49729 Total Protein 6.2 g/dL Unknown COMPREHENSIVE METABOLIC 49513 Glucose 391 mg/dL 2019 Unknown COMPREHENSIVE METABOLIC 65423 Bicarbonate 30 mmol/L 09/11 Unknown COMPREHENSIVE METABOLIC 46095 AGAP 9 mmol/L 2019 Unknown MEAN GLUC 8196809 Calc Mean Gluc 332 mg/dL 09/29/2019 Unkn own COMPLETE BLOOD COUNT [id number] WBC 7.0 10e9/L 09/29/19 Unknown COMPLETE BLOOD COUNT [id number] RBC 4.69 10e12/L 2019 Unknown COMPLETE BLOOD COUNT [id number] HEMOGLOBIN 14.6 g/dL 09/29/19 Unknown COMPLETE BLOOD COUNT [id number] HEMATOCRIT 45.2 % 09/29/19 Unknown COMPLETE BLOOD COUNT 3602127 MCV 96.4 fL 0 Unknown COMPLETE BLOOD COUNT [id number] MCH 31.1 pg 0 Unknown COMPLETE BLOOD COUNT 0366178 MCHC 32.3 g/dL 0 Unknown COMPLETE BLOOD COUNT 2586344 PLATELET COUNT 209 10e9/L Unknown COMPLETE BLOOD COUNT 8884995 Mean Plt Volume 9.8 fL Unknown COMPLETE BLOOD COUNT 3675873 Neut Auto 48.1 % 0 Unknown COMPLETE BLOOD COUNT 3564487 Lymph Auto 36.5 % 09/29/19 Unknown COMPLETE BLOOD COUNT 0393140 [place] Auto 8.6 % 0 Unknown COMPLETE BLOOD COUNT 7252508 RDW 13.4 % 0 Unknown COMPLETE BLOOD COUNT 5404287 Eos Auto 6.5 % 0 Unknown COMPLETE BLOOD COUNT [id number] Baso Auto 0.3 % 0 Unknown COMPLETE BLOOD COUNT [id number] Neutrophil Abs 3.37 10e9/L Unknown COMPLETE BLOOD COUNT [id number] Lymphocyte Abs 2.56 10e9/L Unknown COMPLETE BLOOD COUNT [id number] Monocyte Abs 0.60 10e9/L 09/11 Unknown COMPLETE BLOOD COUNT 8140019 Eosinophil Abs 0.46 10e9/L Unknown COMPLETE BLOOD COUNT [id number] RDW-SD 45.9 fL 0 Unknown COMPLETE BLOOD COUNT [id number] Basophil Abs 0.02 10e9/L 09/11 Unknown LIPID GROUP 83656 Cholesterol 248 mg/dL 09/29/2019 Unkno wn LIPID GROUP 89524 Triglyceride 898 mg/dL 09/29/2019 Unkn own LIPID GROUP 58119 HDL CHOLESTEROL 41 mg/dL 09/29/2019 U nknown LIPID GROUP 36428 Chol/HDL Ratio 6.05 ratio 09/29/2019 U nknown LIPID GROUP 04600 NON-HDL Chol 207 mg/dL 09/29/2019 Unkn own LIPID GROUP 24197 LDL Cholesterol N/A Trig >400 020 Unknown GLYCOSYLATED HEMOGLOBIN TEST 92215 Hgb A1c 92288-5 13.2 % 0 09/29/2019 Unknown FREE T4 11231 T4 Free 0.75 ng/dL 09/29/2019 Unknown GFR CALC 0233991 GFR Non Afr Amr >60 mL/min 09/29/2019 Un known GFR CALC 6908806 GFR Afr Amr >60 mL/min 09/29/2019 Unknow n THYROID STIMULATING HORMONE 52222 TSH 4.245 uIU/mL 09/29/2019 Unknown COMPLETE BLOOD COUNT 1836808 WBC 10.7 10e9/L 018 Unknown COMPLETE BLOOD COUNT [id number] RBC 4.59 10e12/L 2017 Unknown COMPLETE BLOOD COUNT 7092924 HEMOGLOBIN 14.8 g/dL 12/11/19 18 Unknown COMPLETE BLOOD COUNT [id number] HEMATOCRIT 44.9 % 12/11/19 18 Unknown COMPLETE BLOOD COUNT [id number] MCV 97.8 fL 8 Unknown COMPLETE BLOOD COUNT 1328982 MCH 32.2 pg 8 Unknown COMPLETE BLOOD COUNT 8580226 MCHC 33.0 g/dL 8 Unknown COMPLETE BLOOD COUNT 1678605 PLATELET COUNT 261 10e9/L 10/2017 Unknown COMPLETE BLOOD COUNT [id number] Mean Plt Volume 9.5 fL 10/2017 Unknown COMPLETE BLOOD COUNT [id number] Neut Auto 59.9 % 8 Unknown COMPLETE BLOOD COUNT 7932314 Lymph Auto 27.4 % 12/11/19 18 Unknown COMPLETE BLOOD COUNT 5000292 [place] Auto 8.2 % 8 Unknown COMPLETE BLOOD COUNT 6549882 RDW 13.3 % 8 Unknown COMPLETE BLOOD COUNT 2700697 Eos Auto 4.1 % 8 Unknown COMPLETE BLOOD COUNT 2832827 Baso Auto 0.4 % 8 Unknown COMPLETE BLOOD COUNT 3995281 Neutrophil Abs 6.41 10e9/L Unknown COMPLETE BLOOD COUNT [id number] Lymphocyte Abs 2.93 10e9/L Unknown COMPLETE BLOOD COUNT 5245661 Monocyte Abs 0.88 10e9/L 10/2017 Unknown COMPLETE BLOOD COUNT [id number] Eosinophil Abs 0.44 10e9/L Unknown COMPLETE BLOOD COUNT [id number] RDW-SD 46.2 fL 8 Unknown COMPLETE BLOOD COUNT [id number] Basophil Abs 0.04 10e9/L 10/2017 Unknown THYROID STIMULATING HORMONE 88684 TSH 4.015 uIU/mL 12/10/2017 Unknown COMPREHENSIVE METABOLIC 16598 AST 25 U/L 2017 Unknown COMPREHENSIVE METABOLIC 86905 ALT 17 U/L 2017 Unknown COMPREHENSIVE METABOLIC 81210 BUN 19 mg/dL 2017 Unknown COMPREHENSIVE METABOLIC 75076 ALBUMIN 4.0 g/dL 2017 Unknown COMPREHENSIVE METABOLIC 55346 CHLORIDE 91 mmol/L 2017 Unknown COMPREHENSIVE METABOLIC 87753 Bili Total 0.5 mg/dL 12/10 Unknown COMPREHENSIVE METABOLIC 16211 ALK PHOS 75 U/L 2017 Unknown COMPREHENSIVE METABOLIC 20948 SODIUM 136 mmol/L 12/10 Unknown COMPREHENSIVE METABOLIC 38510 CREATININE 1.05 mg/dL 10/2017 Unknown COMPREHENSIVE METABOLIC 80521 CALCIUM 8.9 mg/dL 2017 Unknown COMPREHENSIVE METABOLIC 57766 POTASSIUM 3.4 mmol/L 12/10 Unknown COMPREHENSIVE METABOLIC 89783 Total Protein 6.5 g/dL Unknown COMPREHENSIVE METABOLIC 01946 Glucose 138 mg/dL 2017 Unknown COMPREHENSIVE METABOLIC 11659 Bicarbonate 35 mmol/L 10/2017 Unknown COMPREHENSIVE METABOLIC 75408 AGAP 10 mmol/L 2017 Unknown MEAN GLUC 3557191 Calc Mean Gluc 171 mg/dL 12/10/2017 Unkn own LIPID GROUP 58672 Cholesterol 204 mg/dL 12/10/2017 Unkno wn LIPID GROUP 44834 Triglyceride 411 mg/dL 12/10/2017 Unkn own LIPID GROUP 60985 HDL CHOLESTEROL 50 mg/dL 12/10/2017 U nknown LIPID GROUP 51066 Chol/HDL Ratio 4.08 ratio 12/10/2017 U nknown LIPID GROUP 69521 NON-HDL Chol 154 mg/dL 12/10/2017 Unkn own LIPID GROUP 59870 LDL Cholesterol N/A Trig >400 018 Unknown GLYCOSYLATED HEMOGLOBIN TEST 58355 Hgb A1c 91095-6 7.6 % 0 12/10/2017 Unknown FREE T4 10131 T4 Free 1.40 ng/dL 12/10/2017 Unknown GFR CALC 3820804 GFR Non Afr Amr 55 mL/min 12/10/2017 Unk nown GFR CALC 2328291 GFR Afr Amr >60 mL/min 12/10/2017 Unknow n GFR CALC 1953576 GFR Non Afr Amr 48 mL/min 06/28/2017 Unk nown GFR CALC 5459087 GFR Afr Amr 59 mL/min 06/28/2017 Unknown COMPREHENSIVE METABOLIC 49262 AST 32 U/L 2016 Unknown COMPREHENSIVE METABOLIC 78031 ALT 22 U/L 2016 Unknown COMPREHENSIVE METABOLIC 74339 BUN 23 mg/dL 2016 Unknown COMPREHENSIVE METABOLIC 74376 ALBUMIN 4.7 g/dL 2016 Unknown COMPREHENSIVE METABOLIC 93703 CHLORIDE 89 mmol/L 2016 Unknown COMPREHENSIVE METABOLIC 08389 Bili Total 0.5 mg/dL 06/28 Unknown COMPREHENSIVE METABOLIC 89777 ALK PHOS 90 U/L 2016 Unknown COMPREHENSIVE METABOLIC 41089 SODIUM 135 mmol/L 06/28 Unknown COMPREHENSIVE METABOLIC 30944 CREATININE 1.18 mg/dL 06/10 Unknown COMPREHENSIVE METABOLIC 70110 CALCIUM 9.7 mg/dL 2016 Unknown COMPREHENSIVE METABOLIC 07601 POTASSIUM 3.5 mmol/L 06/28 Unknown COMPREHENSIVE METABOLIC 96645 Total Protein 7.7 g/dL Unknown COMPREHENSIVE METABOLIC 18666 Glucose 129 mg/dL 2016 Unknown COMPREHENSIVE METABOLIC 34495 Bicarbonate 34 mmol/L 06/10 Unknown COMPREHENSIVE METABOLIC 84553 AGAP 12 mmol/L 2016 Unknown LIPID GROUP 43864 HDL TEST 64 MG/DL 08/27/2014 Unknown LIPID GROUP 30389 TRIG 222 MG/DL 08/27/2014 Unknown LIPID GROUP 12157 TEST LDL 209 MG/DL 08/27/2014 Unknown LIPID GROUP 77915 CHOL 317 MG/DL 08/27/2014 Unknown LIPID GROUP 44532 RCHOL/HDL 4.95 RATIO 08/27/2014 Unknow n LIPID GROUP 61227 NON-HDL CH 253 MG/DL 08/27/2014 Unknow n GFR CALC 8932207 GFR AA >60 ML/MIN 08/27/2014 Unknown GFR CALC 3982160 GFR NON-AA >60 ML/MIN 08/27/2014 Unknown COMPLETE BLOOD COUNT 8040520 WBC 7.0 10e9/L 08/27/20 14 Unknown COMPLETE BLOOD COUNT [id number] RBC 4.98 10e12/L 2013 Unknown COMPLETE BLOOD COUNT 8038935 HGB 15.6 g/dL 4 Unknown COMPLETE BLOOD COUNT 5698384 HCT DET 46.5 % 4 Unknown COMPLETE BLOOD COUNT 7229006 MCV 93.4 fL 4 Unknown COMPLETE BLOOD COUNT 6720475 MCH 31.3 pg 4 Unknown COMPLETE BLOOD COUNT 0556598 MCHC 33.5 g/dL 4 Unknown COMPLETE BLOOD COUNT 7970086 PLT 309 10e9/L 08/27/20 14 Unknown COMPLETE BLOOD COUNT 4759109 MPV 9.6 fL 4 Unknown COMPLETE BLOOD COUNT 9252915 CADEN % 57.2 % 4 Unknown COMPLETE BLOOD COUNT 8958425 LY % 33.2 % 4 Unknown COMPLETE BLOOD COUNT 2515221 MON % 7.3 % 4 Unknown COMPLETE BLOOD COUNT 8482045 EOS % 2.0 % 4 Unknown COMPLETE BLOOD COUNT 9180121 BASO % 0.3 % 4 Unknown COMPLETE BLOOD COUNT 7318092 RDW 13.7 % 4 Unknown COMPLETE BLOOD COUNT [id number] ABS CADEN 4.00 10e9/L 014 Unknown COMPLETE BLOOD COUNT 8581616 ABS LYMPH 2.32 10e9/L 014 Unknown COMPLETE BLOOD COUNT 2576266 ABS MONO 0.51 10e9/L 014 Unknown COMPLETE BLOOD COUNT 8251765 ABS EOS 0.14 10e9/L 014 Unknown COMPLETE BLOOD COUNT 5668684 ABS BASO 0.02 10e9/L 014 Unknown COMPLETE BLOOD COUNT 0720337 RDW-SD 45.1 fL 4 Unknown COMPREHENSIVE METABOLIC 49130 AST 13 U/L 2013 Unknown COMPREHENSIVE METABOLIC 29438 ALT 11 IU/L 2013 Unknown COMPREHENSIVE METABOLIC 72534 BUN 23 MG/DL 2013 Unknown COMPREHENSIVE METABOLIC 48700 ALBUMIN 4.4 GM/DL 2013 Unknown COMPREHENSIVE METABOLIC 25983 CHLORIDE 99 MMOL/L 2013 Unknown COMPREHENSIVE METABOLIC 75779 BILI TOT 0.5 MG/DL 2013 Unknown COMPREHENSIVE METABOLIC 68357 ALK PHOS 56 U/L 2013 Unknown COMPREHENSIVE METABOLIC 75526 SODIUM 138 MMOL/L 08/27 Unknown COMPREHENSIVE METABOLIC 45965 CREATININE 0.95 MG/DL 08/10 Unknown COMPREHENSIVE METABOLIC 39166 CALCIUM 9.8 MG/DL 2013 Unknown COMPREHENSIVE METABOLIC 18054 POTASSIUM 3.5 MMOL/L 08/27 Unknown COMPREHENSIVE METABOLIC 76155 PROT TOT 6.8 GM/DL 2013 Unknown COMPREHENSIVE METABOLIC 67008 Glucose 90 MG/DL 2013 Unknown COMPREHENSIVE METABOLIC 74479 BICARB 34 MMOL/L 2013 Unknown COMPREHENSIVE METABOLIC 77766 ANION GAP 5 MEQ/L 2013 Unknown LIPASE 29430 LIPASE 11 IU/L 07/21/2014 Unknown AMYLASE 30570 AMYLASE 39 IU/L 07/21/2014 Unknown HEMOGLOBIN A1C (GLYCOSYLATED) 2419821 A1C HPLC 14637-0 6.2 % 03/05/2013 Unknown THYROID STIMULATING HORMONE 90791 TSH 6.986 uIU/ML 03/05/2013 Unknown COMPLETE BLOOD COUNT 5431709 WBC 12.7 10e9/L 013 Unknown COMPLETE BLOOD COUNT 4365652 RBC 4.53 10e12/L 2012 Unknown COMPLETE BLOOD COUNT 7501616 HGB 14.7 g/dL 3 Unknown COMPLETE BLOOD COUNT 0197266 HCT DET 43.1 % 3 Unknown COMPLETE BLOOD COUNT 0157404 MCV 95.1 fL 3 Unknown COMPLETE BLOOD COUNT 2561344 MCH 32.5 pg 3 Unknown COMPLETE BLOOD COUNT 6710196 MCHC 34.1 g/dL 3 Unknown COMPLETE BLOOD COUNT 7451154 PLT 346 10e9/L 03/05/20 13 Unknown COMPLETE BLOOD COUNT 3117337 MPV 9.5 fL 3 Unknown COMPLETE BLOOD COUNT 7227965 CADEN % 67.6 % 3 Unknown COMPLETE BLOOD COUNT 5451086 LY % 22.1 % 3 Unknown COMPLETE BLOOD COUNT 4860392 MON % 6.6 % 3 Unknown COMPLETE BLOOD COUNT 0703333 EOS % 3.3 % 3 Unknown COMPLETE BLOOD COUNT 5902416 BASO % 0.4 % 3 Unknown COMPLETE BLOOD COUNT 8376110 RDW 14.0 % 3 Unknown COMPLETE BLOOD COUNT [id number] ABS CADEN 8.59 10e9/L 013 Unknown COMPLETE BLOOD COUNT 0050077 ABS LYMPH 2.81 10e9/L 013 Unknown COMPLETE BLOOD COUNT [id number] ABS MONO 0.84 10e9/L 013 Unknown COMPLETE BLOOD COUNT [id number] ABS EOS 0.42 10e9/L 013 Unknown COMPLETE BLOOD COUNT [id number] ABS BASO 0.05 10e9/L 013 Unknown COMPLETE BLOOD COUNT 4765929 RDW-SD 46.0 fL 3 Unknown FREE T4 58045 FREE T4 1.14 NG/DL 03/05/2013 Unknown COMPREHENSIVE METABOLIC 02258 AST 17 U/L 2012 Unknown COMPREHENSIVE METABOLIC 51672 ALT 12 IU/L 2012 Unknown COMPREHENSIVE METABOLIC 68197 BUN 24 MG/DL 2012 Unknown COMPREHENSIVE METABOLIC 50530 ALBUMIN 4.2 GM/DL 2012 Unknown COMPREHENSIVE METABOLIC 50382 CHLORIDE 93 MMOL/L 2012 Unknown COMPREHENSIVE METABOLIC 95445 BILI TOT 0.5 MG/DL 2012 Unknown COMPREHENSIVE METABOLIC 35254 ALK PHOS 75 U/L 2012 Unknown COMPREHENSIVE METABOLIC 06476 SODIUM 141 MMOL/L 03/05 Unknown COMPREHENSIVE METABOLIC 80080 CREATININE 1.36 MG/DL 02/09 Unknown COMPREHENSIVE METABOLIC 82373 CALCIUM 9.2 MG/DL 2012 Unknown COMPREHENSIVE METABOLIC 38735 POTASSIUM 3.1 MMOL/L 03/05 Unknown COMPREHENSIVE METABOLIC 02255 PROT TOT 6.9 GM/DL 2012 Unknown COMPREHENSIVE METABOLIC 65752 Glucose 123 MG/DL 2012 Unknown COMPREHENSIVE METABOLIC 39361 BICARB 36 MMOL/L 2012 Unknown COMPREHENSIVE METABOLIC 85871 ANION GAP 12 MEQ/L 2012 Unknown GFR CALC 5259676 GFR AA 51.0L ML/MIN 03/05/2013 Unknow n GFR CALC 0698399 GFR NON-AA 42.0L ML/MIN 03/05/2013 Unkno wn COMPREHENSIVE METABOLIC 65036 AST 14 U/L 2012 Unknown COMPREHENSIVE METABOLIC 74653 ALT 11 IU/L 2012 Unknown COMPREHENSIVE METABOLIC 91161 BUN 16 MG/DL 2012 Unknown COMPREHENSIVE METABOLIC 22154 ALBUMIN 4.2 GM/DL 2012 Unknown COMPREHENSIVE METABOLIC 07275 CHLORIDE 98 MMOL/L 2012 Unknown COMPREHENSIVE METABOLIC 20534 BILI TOT 0.4 MG/DL 2012 Unknown COMPREHENSIVE METABOLIC 54087 ALK PHOS 77 U/L 2012 Unknown COMPREHENSIVE METABOLIC 29002 SODIUM 139 MMOL/L 09/25 Unknown COMPREHENSIVE METABOLIC 87588 CREATININE 0.86 MG/DL 09/10 Unknown COMPREHENSIVE METABOLIC 03121 CALCIUM 9.5 MG/DL 2012 Unknown COMPREHENSIVE METABOLIC 11159 POTASSIUM 3.8 MMOL/L 09/25 Unknown COMPREHENSIVE METABOLIC 73111 PROT TOT 6.8 GM/DL 2012 Unknown COMPREHENSIVE METABOLIC 29269 Glucose 91 MG/DL 2012 Unknown COMPREHENSIVE METABOLIC 39540 BICARB 32 MMOL/L 2012 Unknown COMPREHENSIVE METABOLIC 77120 ANION GAP 9 MEQ/L 2012 Unknown FREE T4 74219 FREE T4 0.98 NG/DL 09/25/2012 Unknown THYROID STIMULATING HORMONE 72182 TSH 1.736 uIU/ML 09/25/2012 Unknown C-REACTIVE PROTEIN (CRP) QUANT 63083 CRP 2.3 MG/DL 09/25/2012 Unknown COMPLETE BLOOD COUNT [id number] WBC 11.9 10e9/L 013 Unknown COMPLETE BLOOD COUNT 7324913 RBC 4.87 10e12/L 2012 Unknown COMPLETE BLOOD COUNT 1445035 HGB 15.1 g/dL 3 Unknown COMPLETE BLOOD COUNT 7494641 HCT DET 44.8 % 3 Unknown COMPLETE BLOOD COUNT 1519320 MCV 92.0 fL 3 Unknown COMPLETE BLOOD COUNT 4313484 MCH 31.0 pg 3 Unknown COMPLETE BLOOD COUNT 0855596 MCHC 33.7 g/dL 3 Unknown COMPLETE BLOOD COUNT 1934830 PLT 343 10e9/L 09/25/19 13 Unknown COMPLETE BLOOD COUNT 2210201 MPV 9.0 fL 3 Unknown COMPLETE BLOOD COUNT 3027358 CADEN % 68.2 % 3 Unknown COMPLETE BLOOD COUNT 8252926 LY % 22.4 % 3 Unknown COMPLETE BLOOD COUNT 7577139 MON % 6.4 % 3 Unknown COMPLETE BLOOD COUNT 5656830 EOS % 2.7 % 3 Unknown COMPLETE BLOOD COUNT 8788871 BASO % 0.3 % 3 Unknown COMPLETE BLOOD COUNT 3945596 RDW 13.8 % 3 Unknown COMPLETE BLOOD COUNT 5460951 ABS CADEN 8.12 10e9/L 013 Unknown COMPLETE BLOOD COUNT 2534130 ABS LYMPH 2.67 10e9/L 013 Unknown COMPLETE BLOOD COUNT 4093541 ABS MONO 0.76 10e9/L 013 Unknown COMPLETE BLOOD COUNT 2442591 ABS EOS 0.32 10e9/L 013 Unknown COMPLETE BLOOD COUNT [id number] ABS BASO 0.04 10e9/L 013 Unknown COMPLETE BLOOD COUNT 9203487 RDW-SD 45.6 fL 3 Unknown GFR CALC 2754259 GFR AA >60 ML/MIN 09/25/2012 Unknown GFR CALC 9099019 GFR NON-AA >60 ML/MIN 09/25/2012 Unknown ERYTHROCYTE SEDIMENTATION RATE 29220 ESR 19 MM/HR 05/06/2012 Unknown VITAMIN B 12 FOLIC ACID 87436|24181 VIT B 12 922 PG/ML 04/11 Unknown VITAMIN B 12 FOLIC ACID 04542|88796 FOLIC ACID 13.6 NG/ML Unknown URIC ACID 19113 URIC ACID 7.8 MG/DL 05/06/2012 Unknown COMPLETE BLOOD COUNT 81583 WBC 11.9 10e9/L 012 Unknown COMPLETE BLOOD COUNT 81082 RBC 5.30 10e12/L 2011 Unknown COMPLETE BLOOD COUNT 53263 HGB 16.6 g/dL 2 Unknown COMPLETE BLOOD COUNT 67230 HCT DET 47.2 % 2 Unknown COMPLETE BLOOD COUNT 60345 MCV 89.1 fL 2 Unknown COMPLETE BLOOD COUNT 81546 MCH 31.3 pg 2 Unknown COMPLETE BLOOD COUNT 00409 MCHC 35.2 g/dL 2 Unknown COMPLETE BLOOD COUNT 12486 PLT 362 10e9/L 05/06/20 12 Unknown COMPLETE BLOOD COUNT 73835 MPV 9.4 fL 2 Unknown COMPLETE BLOOD COUNT 56853 CADEN % 68.2 % 2 Unknown COMPLETE BLOOD COUNT 54169 LY % 22.0 % 2 Unknown COMPLETE BLOOD COUNT 43206 MON % 6.9 % 2 Unknown COMPLETE BLOOD COUNT 54089 EOS % 2.6 % 2 Unknown COMPLETE BLOOD COUNT 54612 BASO % 0.3 % 2 Unknown COMPLETE BLOOD COUNT 79883 RDW 12.8 % 2 Unknown COMPLETE BLOOD COUNT 52325 ABS CADEN 8.12 10e9/L 012 Unknown COMPLETE BLOOD COUNT 11072 ABS LYMPH 2.62 10e9/L 012 Unknown COMPLETE BLOOD COUNT 83017 ABS MONO 0.82 10e9/L 012 Unknown COMPLETE BLOOD COUNT 10394 ABS EOS 0.31 10e9/L 012 Unknown COMPLETE BLOOD COUNT 30581 ABS BASO 0.04 10e9/L 012 Unknown COMPLETE BLOOD COUNT 17823 RDW-SD 41.5 fL 2 Unknown GFR CALC [id number] GFR AA >60 ML/MIN 05/06/2012 Unknown GFR CALC [id number] GFR NON-AA 58.0L ML/MIN 05/06/2012 Unkno wn FREE T4 34514 FREE T4 1.15 NG/DL 05/06/2012 Unknown THYROID STIMULATING HORMONE 86770 TSH 1.568 uIU/ML 05/06/2012 Unknown COMPREHENSIVE METABOLIC 05047 AST 20 U/L 2011 Unknown COMPREHENSIVE METABOLIC 94411 ALT 12 IU/L 2011 Unknown COMPREHENSIVE METABOLIC 16286 BUN 20 MG/DL 2011 Unknown COMPREHENSIVE METABOLIC 45296 ALBUMIN 4.5 GM/DL 2011 Unknown COMPREHENSIVE METABOLIC 15082 CHLORIDE 91 MMOL/L 2011 Unknown COMPREHENSIVE METABOLIC 13536 BILI TOT 0.4 MG/DL 2011 Unknown COMPREHENSIVE METABOLIC 58597 ALK PHOS 73 U/L 2011 Unknown COMPREHENSIVE METABOLIC 08008 SODIUM 139 MMOL/L 05/06 Unknown COMPREHENSIVE METABOLIC 06278 CREATININE 1.02 MG/DL 04/11 Unknown COMPREHENSIVE METABOLIC 41147 CALCIUM 9.7 MG/DL 2011 Unknown COMPREHENSIVE METABOLIC 53156 POTASSIUM 3.1 MMOL/L 05/06 Unknown COMPREHENSIVE METABOLIC 56283 PROT TOT 7.3 GM/DL 2011 Unknown COMPREHENSIVE METABOLIC 76113 Glucose 118 MG/DL 2011 Unknown COMPREHENSIVE METABOLIC 99156 BICARB 33 MMOL/L 2011 Unknown COMPREHENSIVE METABOLIC 53555 ANION GAP 15 MEQ/L 2011 Unknown Procedures Procedure Codes Date ROUTINE VENIPUNCTURE CPT-4: 44570 09/29/2019 URINALYSIS NONAUTO W/O SCOPE CPT-4: 33513 09/29/2019 COMPREHEN METABOLIC PANEL CPT-4: 39302 09/29/2019 LIPID PANEL CPT-4: 92661 09/29/2019 A1C HPLC CPT-4: [id number] 09/29/2019 ASSAY OF FREE THYROXINE CPT-4: 32403 09/29/2019 ASSAY THYROID STIM HORMONE CPT-4: 54974 09/29/2019 COMPLETE CBC W/AUTO DIFF WBC CPT-4: 51375 09/29/2019 URINALYSIS NONAUTO W/O SCOPE CPT-4: 07791 09/30/2018 MICROALBUMIN QUANTITATIVE CPT-4: 98951 09/30/2018 CEFTRIAXONE SODIUM INJECTION CPT-4: J0696 06/19/2018 THER/PROPH/DIAG INJ SC/IM CPT-4: 25204 06/19/2018 CEFTRIAXONE SODIUM INJECTION CPT-4: J0696 06/17/2018 THER/PROPH/DIAG INJ SC/IM CPT-4: 04177 06/17/2018 THER/PROPH/DIAG INJ SC/IM CPT-4: 53510 05/16/2018 KETOROLAC TROMETHAMINE INJ CPT-4: J1885 05/16/2018 ONDANSETRON HCL INJECTION CPT-4: J2405 05/16/2018 THER/PROPH/DIAG INJ SC/IM CPT-4: 53610 05/16/2018 ROUTINE VENIPUNCTURE CPT-4: 15440 03/20/2018 COMPREHEN METABOLIC PANEL CPT-4: 41757 03/20/2018 DEXAMETHASONE SODIUM PHOS CPT-4: J1100 02/11/2018 THER/PROPH/DIAG INJ SC/IM CPT-4: 09675 02/11/2018 TRIAMCINOLONE ACET INJ NOS CPT-4: J3301 02/11/2018 CEFTRIAXONE SODIUM INJECTION CPT-4: J0696 02/01/2018 THER/PROPH/DIAG INJ SC/IM CPT-4: 22917 02/01/2018 CEFTRIAXONE SODIUM INJECTION CPT-4: J0696 01/30/2018 THER/PROPH/DIAG INJ SC/IM CPT-4: 32408 01/30/2018 ROUTINE VENIPUNCTURE CPT-4: 77229 12/10/2017 ASSAY OF FREE THYROXINE CPT-4: 49438 12/10/2017 ASSAY THYROID STIM HORMONE CPT-4: 56528 12/10/2017 COMPREHEN METABOLIC PANEL CPT-4: 93334 12/10/2017 COMPLETE CBC W/AUTO DIFF WBC CPT-4: 01172 12/10/2017 LIPID PANEL CPT-4: 29621 12/10/2017 A1C HPLC CPT-4: 18881 12/10/2017 CEFTRIAXONE SODIUM INJECTION CPT-4: J0696 12/10/2017 THER/PROPH/DIAG INJ SC/IM CPT-4: 67739 12/10/2017 CEFTRIAXONE SODIUM INJECTION CPT-4: J0696 12/07/2017 THER/PROPH/DIAG INJ SC/IM CPT-4: 53785 12/07/2017 DEXAMETHASONE SODIUM PHOS CPT-4: J1100 12/07/2017 THER/PROPH/DIAG INJ SC/IM CPT-4: 58550 12/07/2017 CEFTRIAXONE SODIUM INJECTION CPT-4: J0696 10/08/2017 THER/PROPH/DIAG INJ SC/IM CPT-4: 00365 10/08/2017 CEFTRIAXONE SODIUM INJECTION CPT-4: J0696 09/21/2017 THER/PROPH/DIAG INJ SC/IM CPT-4: 05181 09/21/2017 CEFTRIAXONE SODIUM INJECTION CPT-4: J0696 09/20/2017 THER/PROPH/DIAG INJ SC/IM CPT-4: 93437 09/20/2017 REMOVAL OF NAIL PLATE CPT-4: 30086 08/29/2017 THER/PROPH/DIAG INJ SC/IM CPT-4: 35517 08/29/2017 TRIAMCINOLONE ACET INJ NOS CPT-4: J3301 08/29/2017 CEFTRIAXONE SODIUM INJECTION CPT-4: J0696 08/29/2017 THER/PROPH/DIAG INJ SC/IM CPT-4: 77392 08/29/2017 DESTRUCT PREMALG LESION (Cryosurgery) CPT-4: 14420 ROUTINE VENIPUNCTURE CPT-4: 41603 06/27/2017 ASSAY OF FREE THYROXINE CPT-4: 30150 06/27/2017 ASSAY THYROID STIM HORMONE CPT-4: 40297 06/27/2017 COMPREHEN METABOLIC PANEL CPT-4: 39431 06/27/2017 COMPLETE CBC W/AUTO DIFF WBC CPT-4: 02122 06/27/2017 EXC TR-EXT B9+REECE 0.5 CM< CPT-4: 53018 01/24/2017 THER/PROPH/DIAG INJ SC/IM CPT-4: 93127 08/02/2016 DEXAMETHASONE SODIUM PHOS CPT-4: J1100 08/02/2016 DESTRUCT PREMALG LESION (Cryosurgery) CPT-4: 28750 EXC TR-EXT B9+REECE 0.5 CM< CPT-4: 64424 08/01/2016 AEROBIC WOUND CULTURE & STN CPT-4: 02997 07/06/2016 CEFTRIAXONE SODIUM INJECTION CPT-4: J0696 05/25/2016 THER/PROPH/DIAG INJ SC/IM CPT-4: 68898 05/25/2016 THER/PROPH/DIAG INJ SC/IM CPT-4: 72828 04/26/2016 DEXAMETHASONE SODIUM PHOS CPT-4: J1100 04/26/2016 CEFTRIAXONE SODIUM INJECTION CPT-4: J0696 04/26/2016 THER/PROPH/DIAG INJ SC/IM CPT-4: 37031 04/26/2016 THER/PROPH/DIAG INJ SC/IM CPT-4: 16042 02/09/2016 TRIAMCINOLONE ACET INJ NOS CPT-4: J3301 02/09/2016 URINALYSIS NONAUTO W/O SCOPE CPT-4: 96501 01/24/2016 URINE CULTURE/ COLONY COUNT CPT-4: 13643 01/24/2016 THER/PROPH/DIAG INJ SC/IM CPT-4: 33657 12/08/2015 TRIAMCINOLONE ACET INJ NOS CPT-4: J3301 12/08/2015 THER/PROPH/DIAG INJ SC/IM CPT-4: 77062 10/07/2015 TRIAMCINOLONE ACET INJ NOS CPT-4: J3301 10/07/2015 DESTRUCT PREMALG LESION (Cryosurgery) CPT-4: 61168 THER/PROPH/DIAG INJ SC/IM CPT-4: 35257 03/16/2015 METHYLPREDNISOLONE 40 MG INJ CPT-4: J1030 03/16/2015 DESTRUCT PREMALG LESION (Cryosurgery) CPT-4: 38424 THER/PROPH/DIAG INJ SC/IM CPT-4: 48392 09/11/2014 METHYLPREDNISOLONE 40 MG INJ CPT-4: J1030 09/11/2014 TRIAMCINOLONE ACET INJ NOS CPT-4: J3301 09/11/2014 CEFTRIAXONE SODIUM INJECTION CPT-4: J0696 09/11/2014 THER/PROPH/DIAG INJ SC/IM CPT-4: 94026 09/11/2014 ROUTINE VENIPUNCTURE CPT-4: 00704 08/27/2014 COMPREHEN METABOLIC PANEL CPT-4: 90183 08/27/2014 COMPLETE CBC W/AUTO DIFF WBC CPT-4: 62117 08/27/2014 LIPID PANEL CPT-4: 45517 08/27/2014 ROUTINE VENIPUNCTURE CPT-4: 85838 07/21/2014 ASSAY OF AMYLASE CPT-4: 00587 07/21/2014 ASSAY OF LIPASE CPT-4: 83209 07/21/2014 THER/PROPH/DIAG INJ SC/IM CPT-4: 18366 07/15/2014 TRIAMCINOLONE ACET INJ NOS CPT-4: J3301 07/15/2014 ROUTINE VENIPUNCTURE CPT-4: 48444 05/14/2014 ASSAY OF FREE THYROXINE CPT-4: 67336 05/14/2014 ASSAY THYROID STIM HORMONE CPT-4: 40695 05/14/2014 COMPREHEN METABOLIC PANEL CPT-4: 64612 05/14/2014 COMPLETE CBC W/AUTO DIFF WBC CPT-4: 86755 05/14/2014 LIPID PANEL CPT-4: 50526 05/14/2014 CEFTRIAXONE SODIUM INJECTION CPT-4: J0696 04/21/2014 THER/PROPH/DIAG INJ SC/IM CPT-4: 53025 04/21/2014 THER/PROPH/DIAG INJ SC/IM CPT-4: 88825 04/21/2014 TRIAMCINOLONE ACET INJ NOS CPT-4: J3301 04/21/2014 THER/PROPH/DIAG INJ SC/IM CPT-4: 83138 03/04/2014 METHYLPREDNISOLONE 40 MG INJ CPT-4: J1030 03/04/2014 TRIAMCINOLONE ACET INJ NOS CPT-4: J3301 03/04/2014 CEFTRIAXONE SODIUM INJECTION CPT-4: J0696 03/04/2014 THER/PROPH/DIAG INJ SC/IM CPT-4: 88959 03/04/2014 TDAP VACCINE 7 YRS/> IM CPT-4: 71469 02/27/2014 IMMUNIZATION ADMIN CPT-4: 92085 02/27/2014 DESTRUCT PREMALG LESION (Cryosurgery) CPT-4: 11692 DESTRUCT PREMALG LES 2-14 CPT-4: 38835 01/13/2014 THER/PROPH/DIAG INJ SC/IM CPT-4: 47995 10/21/2013 METHYLPREDNISOLONE 40 MG INJ CPT-4: J1030 10/21/2013 TRIAMCINOLONE ACET INJ NOS CPT-4: J3301 10/21/2013 CEFTRIAXONE SODIUM INJECTION CPT-4: J0696 08/27/2013 THER/PROPH/DIAG INJ SC/IM CPT-4: 37003 08/27/2013 THER/PROPH/DIAG INJ SC/IM CPT-4: 35016 08/27/2013 METHYLPREDNISOLONE 40 MG INJ CPT-4: J1030 08/27/2013 TRIAMCINOLONE ACET INJ NOS CPT-4: J3301 08/27/2013 THER/PROPH/DIAG INJ SC/IM CPT-4: 47263 06/23/2013 METHYLPREDNISOLONE 40 MG INJ CPT-4: J1030 06/23/2013 TRIAMCINOLONE ACET INJ NOS CPT-4: J3301 06/23/2013 THER/PROPH/DIAG INJ SC/IM CPT-4: 66710 05/26/2013 METHYLPREDNISOLONE 40 MG INJ CPT-4: J1030 05/26/2013 TRIAMCINOLONE ACET INJ NOS CPT-4: J3301 05/26/2013 ROUTINE VENIPUNCTURE CPT-4: 89497 03/05/2013 ASSAY OF FREE THYROXINE CPT-4: 15124 03/05/2013 ASSAY THYROID STIM HORMONE CPT-4: 52310 03/05/2013 COMPREHEN METABOLIC PANEL CPT-4: 64890 03/05/2013 COMPLETE CBC W/AUTO DIFF WBC CPT-4: 23277 03/05/2013 A1C GLYCOSYLATED HEMOGLOBIN TEST CPT-4: 82520 013 DRAIN/INJECT JOINT/BURSA CPT-4: 26663 12/04/2012 METHYLPREDNISOLONE 40 MG INJ CPT-4: J1030 12/04/2012 TRIAMCINOLONE ACET INJ NOS CPT-4: J3301 12/04/2012 CEFTRIAXONE SODIUM INJECTION CPT-4: J0696 11/21/2012 THER/PROPH/DIAG INJ SC/IM CPT-4: 05162 11/21/2012 THER/PROPH/DIAG INJ SC/IM CPT-4: 14922 10/14/2012 METHYLPREDNISOLONE 40 MG INJ CPT-4: J1030 10/14/2012 TRIAMCINOLONE ACET INJ NOS CPT-4: J3301 10/14/2012 URINALYSIS NONAUTO W/O SCOPE CPT-4: 26692 09/27/2012 ROUTINE VENIPUNCTURE CPT-4: 59923 09/25/2012 ASSAY OF FREE THYROXINE CPT-4: 37722 09/25/2012 ASSAY THYROID STIM HORMONE CPT-4: 09429 09/25/2012 COMPREHEN METABOLIC PANEL CPT-4: 43650 09/25/2012 COMPLETE CBC W/AUTO DIFF WBC CPT-4: 13907 09/25/2012 C-REACTIVE PROTEIN CPT-4: 87408 09/25/2012 THER/PROPH/DIAG INJ SC/IM CPT-4: 52700 08/29/2012 METHYLPREDNISOLONE 40 MG INJ CPT-4: J1030 08/29/2012 TRIAMCINOLONE ACET INJ NOS CPT-4: J3301 08/29/2012 DESTRUCT PREMALG LESION (Cryosurgery) CPT-4: 81499 THER/PROPH/DIAG INJ SC/IM CPT-4: 73505 05/06/2012 METHYLPREDNISOLONE 40 MG INJ CPT-4: J1030 05/06/2012 TRIAMCINOLONE ACET INJ NOS CPT-4: J3301 05/06/2012 VITAMIN B 12 FOLIC ACID CPT-4: 80627|42682 05/06/2012 RBC SED RATE AUTOMATED CPT-4: 90955 05/06/2012 ROUTINE VENIPUNCTURE CPT-4: 25834 05/06/2012 ASSAY OF FREE THYROXINE CPT-4: 44853 05/06/2012 ASSAY THYROID STIM HORMONE CPT-4: 00790 05/06/2012 COMPREHEN METABOLIC PANEL CPT-4: 71310 05/06/2012 COMPLETE CBC W/AUTO DIFF WBC CPT-4: 69386 05/06/2012 ASSAY OF BLOOD/URIC ACID CPT-4: 37156 05/06/2012 THER/PROPH/DIAG INJ SC/IM CPT-4: 85761 03/19/2012 KETOROLAC TROMETHAMINE INJ CPT-4: J1885 03/19/2012 KETOROLAC TROMETHAMINE INJ CPT-4: J1885 01/30/2012 THER/PROPH/DIAG INJ SC/IM CPT-4: 11132 01/30/2012 PROMETHAZINE HCL INJECTION CPT-4: J2550 01/30/2012 THER/PROPH/DIAG INJ SC/IM CPT-4: 36110 01/24/2012 METHYLPREDNISOLONE 40 MG INJ CPT-4: J1030 01/24/2012 TRIAMCINOLONE ACET INJ NOS CPT-4: J3301 01/24/2012 THER/PROPH/DIAG INJ SC/IM CPT-4: 15094 09/13/2011 KETOROLAC TROMETHAMINE INJ CPT-4: J1885 09/13/2011 THER/PROPH/DIAG INJ SC/IM CPT-4: 69380 09/13/2011 PROMETHAZINE HCL INJECTION CPT-4: J2550 09/13/2011 CEFTRIAXONE SODIUM INJECTION CPT-4: J0696 07/20/2011 THER/PROPH/DIAG INJ SC/IM CPT-4: 80857 07/20/2011 THER/PROPH/DIAG INJ SC/IM CPT-4: 04608 07/20/2011 METHYLPREDNISOLONE INJECTION CPT-4: J2930 07/20/2011 URINALYSIS NONAUTO W/O SCOPE CPT-4: 41815 05/09/2011 CEFTRIAXONE SODIUM INJECTION CPT-4: J0696 05/09/2011 THER/PROPH/DIAG INJ SC/IM CPT-4: 63720 05/09/2011 THER/PROPH/DIAG INJ SC/IM CPT-4: 57232 05/09/2011 PROMETHAZINE HCL INJECTION CPT-4: J2550 05/09/2011 HYDRATION IV INFUSION INIT CPT-4: 26159 05/09/2011 DESTRUCT PREMALG LESION (Cryosurgery) CPT-4: 32162 DESTRUCT PREMALG LES 2-14 CPT-4: 87913 07/19/2010 REMOVAL OF SKIN TAGS <W/15 CPT-4: 74998 05/30/2010 THER/PROPH/DIAG INJ SC/IM CPT-4: 53482 04/05/2010 CEFTRIAXONE SODIUM INJECTION CPT-4: J0696 04/05/2010 TRIAMCINOLONE ACET INJ NOS CPT-4: J3301 04/05/2010 METHYLPREDNISOLONE 40 MG INJ CPT-4: J1030 04/05/2010 THER/PROPH/DIAG INJ SC/IM CPT-4: 78172 04/05/2010 TRIAMCINOLONE ACET INJ NOS CPT-4: J3301 03/09/2010 METHYLPREDNISOLONE 40 MG INJ CPT-4: J1030 03/09/2010 THER/PROPH/DIAG INJ SC/IM CPT-4: 10133 03/09/2010 THER/PROPH/DIAG INJ SC/IM CPT-4: 26716 03/09/2010 CEFTRIAXONE SODIUM INJECTION CPT-4: J0696 03/09/2010 [...] 1: 132/80 Code: 8480-6 BMI: 35.8 Code: 52927-6 Heart Rate 1: 88 bpm Height: 5'4" Respiratory Rate: 20 bpm SpO2: 95% Tempera ture: 36.9 (C) / 98.5 (F) Weight: 210 lbs 05/28/2019 Blood Pressure 1: 126/82 Code: 8480-6 BMI: 35.0 Code: 96018-8 Heart Rate 1: 88 bpm Height: 5'4" [...] 1: 128/90 Code: 8480-6 BMI: 37.2 Code: 53389-3 Heart Rate 1: 84 bpm Height: 5'4" Respiratory Rate: 20 bpm SpO2: 95% Tempera ture: 36.6 (C) / 97.8 (F) Weight: 217 lbs 08/27/2018 Blood Pressure 1: 128/88 Code: 8480-6 BMI: 38.3 Code: 90976-9 Heart Rate 1: 84 bpm Height: 5'4" [...] 1: 119/72 Code: 8480-6 BMI: 37.4 Code: 52067-3 Heart Rate 1: 82 bpm Height: 5'4" Respiratory Rate: 12 bpm SpO2: 94% Tempera ture: 35.2 (C) / 95.4 (F) Weight: 218 lbs 12/18/2017 Blood Pressure 1: 128/86 Code: 8480-6 BMI: 37.8 Code: 55989-9 Heart Rate 1: 84 bpm Height: 5'4" [...] 1: 128/82 Code: 8480-6 BMI: 35.5 Code: 60686-2 Heart Rate 1: 84 bpm Height: 5'4" [...] 1: 128/82 Code: 8480-6 BMI: 30.2 Code: 27680-7 Heart Rate 1: 80 bpm Height: 5'4" [...] 1: 128/86 Code: 8480-6 BMI: 32.8 Code: 97996-6 Heart Rate 1: 66 bpm Height: 5'4" Respiratory Rate: 18 bpm Temperature: 36 .3 (C) / 97.3 (F) Weight: 191 lbs 06/23/2013 Blood Pressure 1: 132/94 Code: 8480-6 BMI: 34.0 Code: 06658-4 Heart Rate 1: 84 bpm Height: 5'4" Respiratory Rate: 20 bpm Temperature: 36 .8 (C) / 98.2 (F) Weight: 198 lbs 05/26/2013 Blood Pressure 1: 114/80 Code: 8480-6 BMI: 35.0 Code: 04705-5 Heart Rate 1: 80 bpm Height: 5'4" Respiratory Rate: 20 bpm Temperature: 36 .4 (C) / 97.6 (F) Weight: 204 lbs 04/16/2013 Blood Pressure 1: 114/82 Code: 8480-6 BMI: 36.7 Code: 90279-5 Heart Rate 1: 84 bpm Height: 5'4" Respiratory Rate: 20 bpm Temperature: 36 .7 (C) / 98.0 (F) Weight: 214 lbs 03/05/2013 Blood Pressure 1: 136/90 Code: 8480-6 BMI: 37.1 Code: 93649-7 Heart Rate 1: 84 bpm Height: 5'4" [...] 1: 168/114 Code: 8480-6 BMI: 36.2 Code: 80230-1 Heart Rate 1: 104 bpm Height: 5'4" Respiratory Rate: 20 bpm Temperature: 36 .8 (C) / 98.2 (F) Weight: 211 lbs 11/22/2012 Blood Pressure 1: 128/90 Code: 8480-6 Heart Rate 1: 88 bpm Respiratory Rate: 20 bpm SpO2: 96% Temperature: 36.8 (C) / 98.2 (F) 11/21/2012 Blood Pressure 1: 146/100 Code: 8480-6 BMI: 35.7 Code: 47894-6 Heart Rate 1: 96 bpm Height: 5'4" [...] 1: 138/100 Code: 8480-6 BMI: 35.7 Code: 80338-6 Heart Rate 1: 96 bpm Height: 5'4" Respiratory Rate: 20 bpm Temperature: 36 .8 (C) / 98.2 (F) Weight: 208 lbs 05/06/2012 Blood Pressure 1: 154/102 Code: 8480-6 BMI: 34.7 Code: 62968-9 Heart Rate 1: 116 bpm Height: 5'4" Respiratory Rate: 20 bpm Temperature: 36 .8 (C) / 98.2 (F) Weight: 202 lbs 04/03/2012 Blood Pressure 1: 134/94 Code: 8480-6 BMI: 34.8 Code: 09077-3 Heart Rate 1: 108 bpm Height: 5'4" Respiratory Rate: 20 bpm Temperature: 36 .8 (C) / 98.2 (F) Weight: 203 lbs 03/19/2012 Blood Pressure 1: 148/106 Code: 8480-6 BMI: 35.0 Code: 31404-9 Heart Rate 1: 100 bpm Height: 5'4" Respiratory Rate: 20 bpm Temperature: 36 .6 (C) / 97.9 (F) Weight: 204 lbs 02/22/2012 Blood Pressure 1: 146/94 Code: 8480-6 He art Rate 1: 88 bpm 02/21/2012 Blood Pressure 1: 172/120 Code: 8480-6 B lood Pressure 2: 152/106 Code: 8480-6 Heart Rate 1: 116 bpm 02/20/2012 Blood Pressure 1: 160/100 Code: 8480-6 BMI: 32.0 Code: 69439-5 Heart Rate 1: 84 bpm Height: 5'7" Temperature: 36.5 (C) / 97.7 (F) Weight: 204 lbs 01/30/2012 Blood Pressure 1: 152/110 Code: 8480-6 BMI: 32.0 Code: 66564-3 Heart Rate 1: 116 bpm Height: 5'7" Respiratory Rate: 20 bpm Temperature: 37 .0 (C) / 98.6 (F) Weight: 204 lbs 01/24/2012 Blood Pressure 1: 146/100 Code: 8480-6 BMI: 32.0 Code: 26576-9 Heart Rate 1: 100 bpm Height: 5'7" Respiratory Rate: 20 bpm Temperature: 36 .7 (C) / 98.0 (F) Weight: 204 lbs 01/10/2012 Blood Pressure 1: 156/94 Code: 8480-6 BMI: 32.6 Code: 56529-1 Heart Rate 1: 72 bpm Height: 5'7" Respiratory Rate: 20 bpm Temperature: 36 .8 (C) / 98.2 (F) Weight: 208 lbs 12/11/2011 Blood Pressure 1: 146/100 Code: 8480-6 Heart Rat e 1: 116 bpm Height: 5'7" Respiratory Rate: 20 bpm Temperature: 36.9 (C) / 98.4 (F) We ight: 11/09/2011 Blood Pressure 1: 148/96 Code: 8480-6 BMI: 32.1 Code: 54857-3 Heart Rate 1: 116 bpm Height: 5'7" Respiratory Rate: 20 bpm Temperature: 36 .7 (C) / 98.0 (F) Weight: 205 lbs 09/13/2011 Blood Pressure 1: 126/88 Code: 8480-6 Heart Rate 1: 88 bpm Height: 5'7" Respiratory Rate: 20 bpm Temperature: 36.9 (C) / 98.4 (F) We ight: 08/31/2011 Blood Pressure 1: 118/82 Code: 8480-6 BMI: 32.0 Code: 70405-5 Heart Rate 1: 80 bpm Height: 5'7" Temperature: 36.4 (C) / 97.6 (F) Weight: 204 lbs 07/06/2011 Blood Pressure 1: 128/86 Code: 8480-6 BMI: 30.9 Code: 22771-5 Heart Rate 1: 92 bpm Height: 5'7" Respiratory Rate: 20 bpm Temperature: 36 .9 (C) / 98.4 (F) Weight: 197 lbs 06/06/2011 Blood Pressure 1: 112/74 Code: 8480-6 BMI: 31.0 Code: 69275-6 Heart Rate 1: 72 bpm Height: 5'7" [...] 1: 128/92 Code: 8480-6 BMI: 33.6 Code: 78890-2 Heart Rate 1: 104 bpm Height: 5'4" [...] insomnia 01/24/2016 cough 12/23/2015 patient is [facility]terepnaseemn and steroid injection chest congestion 12/08/2015 injection(s) [...] Check-up Encounters Encounter Performer Location Codes Date ([id number]) OFFICE/OUTPATIENT VISIT EST Diagnosis: Essential (primary) hypertension[ICD10: I10] Diagnosis: Type 2 diabetes mellitus with hyperglycemia[ICD10: E11.65] Diagnosis: Allergic rhinitis[ICD10: J30.9] María Elena [facility] [employer] CPT-4: 25913 01/13/2020 ([id number]) OFFICE/OUTPATIENT VISIT EST Diagnosis: Type 2 diabetes mellitus with hyperglycemia[ICD10: E11.65] María Elena [facility]ES [facility] [employer] CPT-4: 46871 11/20/2019 ([id number]) OFFICE/OUTPATIENT VISIT EST Diagnosis: Ingrowing nail[ICD10: L60.0] Diagnosis: Type 2 diabetes mellitus with hyperglycemia[ICD10: E11.65] Kathleen [facility] [employer] CPT-4: 15764 10/07/2019 ([id number]) OFFICE/OUTPATIENT VISIT EST Diagnosis: DM w/o complication type II, uncontrolled[ICD10: E11.65] Diagnosis: Hypertriglyceridemia[ICD10: E78.1] Diagnosis: Essential hypertension[ICD10: I10] María Elena JEAN Fabiola [facility] CPT-4: 38111 09/30/2019 ([id number]) NURSE/OUTPATIENT VISIT EST Diagnosis: Essential (primary) hypertension[ICD10: I10] Diagnosis: Cervicalgia[ICD10: M54.2] Diagnosis: Hyperglycemia, unspecified[ICD10: R73.9] Diagnosis: Mixed hyperlipidemia[ICD10: E78.2] María Elena JEAN Fabiola APPIAH [employer] [facility] CPT-4: 87953 09/29/2019 ([id number]) OFFICE/OUTPATIENT VISIT EST Diagnosis: Essential (primary) hypertension[ICD10: I10] Diagnosis: Fall from bed, sequela[ICD10: W06.XXXS] María Elena REED LucioJj [facility] CPT-4: 26070 05/28/2019 ([id number]) NURSE/OUTPATIENT VISIT EST Diagnosis: Essential (primary) hypertension[ICD10: I10] María Elena MONTEROQUELINE LucioJj [facility] CPT-4: 83414 05/19/2019 ([id number]) OFFICE/OUTPATIENT VISIT EST Diagnosis: Essential (primary) hypertension[ICD10: I10] Diagnosis: Type 2 diabetes mellitus with hyperglycemia[ICD10: E11.65] Diagnosis: Intervertebral disc disorders with radiculopathy, 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] Diagnosis: Hormone replacement therapy[ICD10: Z79.890] María Elena JUARES [facility] CPT-4: 42390 01/22/2019 ([id number]) OFFICE/OUTPATIENT VISIT EST Diagnosis: Essential (primary) hypertension[ICD10: I10] Diagnosis: Type 2 diabetes mellitus with hyperglycemia[ICD10: E11.65] María Elenagael MONTEROQUELINE LucioJj [facility] CPT-4: 17838 09/30/2018 ([id number]) OFFICE/OUTPATIENT VISIT EST Diagnosis: Pain in left elbow[ICD10: M25.522] Diagnosis: Acute stress reaction[ICD10: F43.0] Diagnosis: Primary insomnia[ICD10: F51.01] Diagnosis: Abnormal weight gain[ICD10: R63.5] María Elenagael [facility]IA[facility] CPT-4: 17655 08/27/2018 ([id number]) OFFICE/OUTPATIENT VISIT EST Diagnosis: Acute recurrent sinusitis, unspecified[ICD10: J01.91] Diagnosis: Follicular disorder, unspecified[ICD10: L73.9] Diagnosis: Tinea corporis[ICD10: B35.4] María Elena [facility] CPT-4: 48740 08/09/2018 ([id number]) OFFICE/OUTPATIENT VISIT EST Diagnosis: Tinea corporis[ICD10: B35.4] Diagnosis: Anxiety disorder, unspecified[ICD10: F41.9] Diagnosis: Menopausal and female climacteric states[ICD10: N95.1] María Elena [facility] CPT-4: 38917 07/22/2018 ([id number]) NURSE/OUTPATIENT VISIT EST Diagnosis: Cellulitis of right toe[ICD10: L03.031] [facility] CPT[facility]: 14281 06/19/2018 ([id number]) OFFICE/OUTPATIENT VISIT EST Diagnosis: Cellulitis of right toe[ICD10: L03.031] Kathleen APPIA[facility] CPT-4: 71907 06/17/2018 ([id number]) OFFICE/OUTPATIENT VISIT EST Diagnosis: Migraine without aura, intractable, without status migrainosus[ICD10: G43.019] Diagnosis: Zoster without complications[ICD10: B02.9] Kathleen APPIA[facility] CPT-4: 36910 05/16/2018 ([id number]) OFFICE/OUTPATIENT VISIT EST Diagnosis: Cellulitis of right lower limb[ICD10: L03.115] Kathleen APPIA[facility] CPT-4: 53904 03/20/2018 ([id number]) OFFICE/OUTPATIENT VISIT EST Diagnosis: Cellulitis of right lower limb[ICD10: L03.115] Kathleen APPIA[facility] CPT-4: 70481 03/18/2018 ([id number]) OFFICE/OUTPATIENT VISIT EST Diagnosis: Cellulitis of right lower limb[ICD10: L03.115] Kathleen [facility] CPT-4: 44903 03/15/2018 ([id number]) OFFICE/OUTPATIENT VISIT EST Diagnosis: Acute sinusitis, unspecified[ICD10: J01.90] Kathleen APPIAH DO [facility] CPT-4: 64166 02/11/2018 ([id number]) NURSE/OUTPATIENT VISIT EST Diagnosis: Otitis media, unspecified, right ear[ICD10: H66.91] María Elena APPIAH DO [facility] CPT-4: 92719 02/01/2018 ([id number]) OFFICE/OUTPATIENT VISIT EST Diagnosis: Acute suppurative otitis media without spontaneous rupture of ear drum, left ear[ICD10: H66.002] Diagnosis: Abnormal weight gain[ICD10: R63.5] Diagnosis: Intervertebral disc disorders with radiculopathy, 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] Kathleen APPIAH DO [facility] CPT-4: 99 214 01/30/2018 ([id number]) PREV VISIT EST AGE 40-64 Diagnosis: Encounter for general adult medical examination without abnormal findings[ICD10: Z00.00] Diagnosis: Essential (primary) hypertension[ICD10: I10] Diagnosis: Mixed hyperlipidemia[ICD10: E78.2] Diagnosis: Type 2 diabetes mellitus with hyperglycemia[ICD10: E11.65] Diagnosis: 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] María Elena APPIAH DO [facility] CPT-4: 81387 12/18/2017 ([id number]) OFFICE/OUTPATIENT VISIT EST Diagnosis: Cellulitis of right toe[ICD10: L03.031] Diagnosis: Mixed hyperlipidemia[ICD10: E78.2] Diagnosis: Essential (primary) hypertension[ICD10: I10] Diagnosis: Hyperglycemia, unspecified[ICD10: R73.9] Diagnosis: Nontoxic goiter, 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] María Elena APPIAH DO [facility] CPT-4: 74004 12/10/2017 ([id number]) OFFICE/OUTPATIENT VISIT EST Diagnosis: Cellulitis of right toe[ICD10: L03.031] Diagnosis: Acute sinusitis, unspecified[ICD10: J01.90] Kathleen APPIAH DO [facility] CPT-4: 93637 12/07/2017 OFFICE/OUTPATIENT VISIT EST Diagnosis: Acute maxillary sinusitis, unspecified[ICD10: J01.00] Kathleen APPIAH DO [facility] CPT-4: 49820 10/08/2017 ([id number]) OFFICE/OUTPATIENT VISIT EST Diagnosis: Cellulitis of left toe[ICD10: L03.032] María Elena APPIAH DO [facility] CPT-4: 69592 09/21/2017 ([id number]) OFFICE/OUTPATIENT VISIT EST Diagnosis: Insomnia, unspecified[ICD10: G47.00] Diagnosis: Major depressive disorder, single episode, unspecified[ICD10: F32.9] Diagnosis: Anxiety disorder, unspecified[ICD10: F41.9] Diagnosis: Cellulitis of left toe[ICD10: L03.032] Diagnosis: Snoring[ICD10: R06.83] Kathleen APPIAH DO [facility] CPT-4: 37282 09/20/2017 ([id number]) OFFICE/OUTPATIENT VISIT EST Diagnosis: Cellulitis of left toe[ICD10: L03.032] María Elena APPIAH DO [facility] CPT-4: 51326 07/19/2017 OFFICE/OUTPATIENT VISIT EST Diagnosis: Chronic sinusitis, unspecified[ICD10: J32.9] Diagnosis: Generalized hyperhidrosis[ICD10: R61] Kathleen APPIAH DO [facility] CPT-4: 61054 06/27/2017 ([id number]) OFFICE/OUTPATIENT VISIT EST Diagnosis: Intervertebral disc disorders with radiculopathy, 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] Diagnosis: Primary insomnia[ICD10: F51.01] Diagnosis: Other fatigue[ICD10: R53.83] María Elena APPIAH DO [facility] CPT-4: 15672 04/10/2017 ([id number]) OFFICE/OUTPATIENT VISIT EST Diagnosis: Primary insomnia[ICD10: F51.01] Diagnosis: Localized edema[ICD10: R60.0] Diagnosis: 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] María Elena APPIAH DO [facility] CPT-4: 38155 12/13/2016 ([id number]) OFFICE/OUTPATIENT VISIT EST Diagnosis: Primary insomnia[ICD10: F51.01] Diagnosis: Cyanosis[ICD10: R23.0] María Elena [facility] CPT-4: 97976 11/01/2016 ([id number]) PREV VISIT EST AGE 40-64 Diagnosis: Encounter for gynecological examination (general) (routine) without abnormal findings[ICD10: Z01.419] Diagnosis: Encounter for routine child health examination without abnormal findings[ICD10: Z00.129] María Elena APPIAH [facility] CPT-4: 23104 10/17/2016 ([id number]) OFFICE/OUTPATIENT VISIT EST Diagnosis: Other seasonal allergic rhinitis[ICD10: J30.2] María Elena APPIAH [facility] CPT-4: 01050 10/10/2016 ([id number]) OFFICE/OUTPATIENT VISIT EST Diagnosis: Pain in left arm[ICD10: M79.602] Diagnosis: Contact with and (suspected) exposure to potentially hazardous body fluids[ICD10: Z77.21] Diagnosis: 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, 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] Diagnosis: Unspecified open wound, right foot, sequela[ICD10: S91.301S] María Elena APPIAH DO [facility] CPT-4: 89245 09/19/2016 ([id number]) OFFICE/OUTPATIENT VISIT EST Diagnosis: Chronic sinusitis, unspecified[ICD10: J32.9] Diagnosis: Allergic rhinitis due to pollen[ICD10: J30.1] María Elena APPIAH [facility] CPT-4: 86591 08/24/2016 ([id number]) OFFICE/OUTPATIENT VISIT EST Diagnosis: Acute bronchitis, unspecified[ICD10: J20.9] María Elena APPIAH DO [facility] CPT-4: 67415 08/16/2016 ([id number]) OFFICE/OUTPATIENT VISIT EST Diagnosis: Otitis media, unspecified, right ear[ICD10: H66.91] Diagnosis: Acute bronchitis, unspecified[ICD10: J20.9] María Elena APPIAH DO [facility] CPT-4: 49347 08/10/2016 ([id number]) OFFICE/OUTPATIENT VISIT EST Diagnosis: Acute recurrent sinusitis, unspecified[ICD10: J01.91] Diagnosis: Allergic rhinitis due to pollen[ICD10: J30.1] María Elena APPIAH DO [facility] CPT-4: 53213 08/02/2016 ([id number]) OFFICE/OUTPATIENT VISIT EST Diagnosis: Pain in unspecified joint[ICD10: M25.50] María Elena APPIAH DO [facility] CPT-4: 18150 07/27/2016 OFFICE/OUTPATIENT VISIT EST Diagnosis: 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] Diagnosis: Acute recurrent sinusitis, unspecified[ICD10: J01.91] Diagnosis: Other fatigue[ICD10: R53.83] Diagnosis: Primary insomnia[ICD10: F51.01] Diagnosis: Pain in unspecified joint[ICD10: M25.50] María Elena APPIAH [employer] [facility] CPT-4: 28621 07/20/2016 ([id number]) OFFICE/OUTPATIENT VISIT EST Diagnosis: Blister (nonthermal), left great toe, initial encounter[ICD10: S90.422A] Loan APPIAH [employer] [facility] CPT-4: 09995 ([id number]) OFFICE/OUTPATIENT VISIT EST Diagnosis: Acute recurrent sinusitis, unspecified[ICD10: J01.91] María Elena APPIAH DO [facility] CPT-4: 78957 05/25/2016 ([id number]) OFFICE/OUTPATIENT VISIT EST Diagnosis: Acute sinusitis, unspecified[ICD10: J01.90] María Elenamarcella APPIAH DO [facility] CPT-4: 37584 04/26/2016 ([id number]) OFFICE/OUTPATIENT VISIT EST Diagnosis: Flushing[ICD10: R23.2] Diagnosis: Primary insomnia[ICD10: F51.01] María Elena APPIAH DO [facility] CPT-4: 64120 03/02/2016 ([id number]) OFFICE/OUTPATIENT VISIT EST Diagnosis: Other seasonal allergic rhinitis[ICD10: J30.2] Loan APPIAH DO [facility] CPT-4: 39777 02/09/2016 ([id number]) OFFICE/OUTPATIENT VISIT EST Diagnosis: Primary insomnia[ICD10: F51.01] Diagnosis: Urinary tract infection, site not specified[ICD10: N39.0] María Elena APPIAH DO [facility] CPT-4: 74712 01/24/2016 ([id number]) OFFICE/OUTPATIENT VISIT EST Diagnosis: Other specified disorders of Eustachian tube, bilateral[ICD10: H69.83] Diagnosis: Allergic rhinitis, unspecified[ICD10: J30.9] Loan APPIAH DO [facility] CPT-4: 66688 12/23/2015 ([id number]) OFFICE/OUTPATIENT VISIT EST Diagnosis: Acute recurrent sinusitis, unspecified[ICD10: J01.91] Diagnosis: 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] Diagnosis: Allergic rhinitis, unspecified[ICD10: J30.9] María Elena APPIAH DO [facility] CPT-4: 57718 12/08/2015 ([id number]) OFFICE/OUTPATIENT VISIT EST Diagnosis: Allergic rhinitis, unspecified[ICD10: J30.9] Diagnosis: Pain in unspecified joint[ICD10: M25.50] María Elena APPIAH DO [facility] CPT-4: 28148 10/07/2015 ([id number]) OFFICE/OUTPATIENT VISIT EST Diagnosis: Essential (primary) hypertension[ICD10: I10] María Elena APPIAH DO [facility] CPT-4: 42318 10/06/2015 OFFICE/OUTPATIENT VISIT EST Diagnosis: Localized enlarged lymph nodes[ICD10: R59.0] Diagnosis: Local infection of the skin and subcutaneous tissue, unspecified[ICD10: L08.9] June APPIAH DO [facility] CPT- 4: 98696 09/14/2015 ([id number]) OFFICE/OUTPATIENT VISIT EST Diagnosis: Essential (primary) hypertension[ICD10: I10] Diagnosis: Actinic keratosis[ICD10: L57.0] María Elena APPIAH DO [facility] CPT-4: 36885 09/07/2015 ([id number]) OFFICE/OUTPATIENT VISIT EST Diagnosis: Essential (primary) hypertension[ICD10: I10] Diagnosis: Acute stress reaction[ICD10: F43.0] María Elena APPIAH [facility] CPT-4: 82213 08/18/2015 ([id number]) OFFICE/OUTPATIENT VISIT EST Diagnosis: Essential (primary) hypertension[ICD10: I10] María Elena APPIAH DO [facility] CPT-4: 17945 07/07/2015 ([id number]) OFFICE/OUTPATIENT VISIT EST Diagnosis: Essential (primary) hypertension[ICD10: I10] María Elena APPIAH DO [facility] CPT-4: 51738 06/24/2015 ([id number]) OFFICE/OUTPATIENT VISIT EST Diagnosis: Essential (primary) hypertension[ICD10: I10] María Elena APPIAH DO [facility] CPT-4: 17280 06/21/2015 ([id number]) OFFICE/OUTPATIENT VISIT EST Diagnosis: Essential (primary) hypertension[ICD10: I10] Diagnosis: Mixed hyperlipidemia[ICD10: E78.2] Diagnosis: Acute stress reaction[ICD10: F43.0] Diagnosis: Primary insomnia[ICD10: F51.01] María Elena APPIAH DO [facility] CPT-4: 52626 06/16/2015 ([id number]) OFFICE/OUTPATIENT VISIT EST Diagnosis: INSOMNIA NOS[ICD9: 780.52] Diagnosis: HYPERTENSION[ICD9: 401.9] Diagnosis: Stress reaction[ICD9: 308.9] María Elena APPIAH DO [facility] CPT-4: 29040 06/02/2015 ([id number]) OFFICE/OUTPATIENT VISIT EST Diagnosis: HYPERTENSION[ICD9: 401.9] Diagnosis: Stress reaction[ICD9: 308.9] María Elena APPIAH DO [facility] CPT-4: 42768 05/20/2015 ([id number]) OFFICE/OUTPATIENT VISIT EST Diagnosis: Skin lesion[ICD9: 709.9] 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] María Elena APPIAH DO [facility] CPT-4: 31957 05/10/2015 ([id number]) OFFICE/OUTPATIENT VISIT EST Diagnosis: SINUSITIS, ACUTE[ICD9: 461.9] Diagnosis: ALLERGIC RHINITIS[ICD9: 477.9] Diagnosis: DERMATITIS NOS[ICD9: 692.9] María Elena REHMAN [facility] CPT-4: 72144 03/16/2015 OFFICE/OUTPATIENT VISIT EST Diagnosis: Otitis media[ICD9: 382.9] Diagnosis: SINUSITIS, ACUTE[ICD9: 461.9] June Felixdaniella APPIAH DO [facility] CPT-4: 21950 09/11/2014 ([id number]) OFFICE/OUTPATIENT VISIT EST Diagnosis: HYPERLIPIDEMIA NEC/NOS[ICD9: 272.4] María Elena APPIAH DO [facility] CPT-4: 14262 08/31/2014 ([id number]) OFFICE/OUTPATIENT VISIT EST Diagnosis: - I - HYPERTENSION[ICD9: 401.9] Diagnosis: HYPERLIPIDEMIA NEC/NOS[ICD9: 272.4] María Elena APPIAH DO [facility] CPT-4: 47328 08/27/2014 ([id number]) OFFICE/OUTPATIENT VISIT EST Diagnosis: ABDOMINAL PAIN[ICD9: 789.00] Diagnosis: DYSPEPSIA[ICD9: 536.8] Diagnosis: Thoracic back pain[ICD9: 724.1] María Elena APPIAH DO [facility] CPT-4: 70636 07/21/2014 ([id number]) OFFICE/OUTPATIENT VISIT EST Diagnosis: ALLERGIC RHINITIS[ICD9: 477.9] María Elena APPIAH [facility] CPT-4: 96367 07/15/2014 ([id number]) OFFICE/OUTPATIENT VISIT EST Diagnosis: EDEMA[ICD9: 782.3] Diagnosis: Chronic insomnia[ICD9: 780.52] María Elena APPIAH [facility] CPT-4: 56280 05/18/2014 ([id number]) OFFICE/OUTPATIENT VISIT EST Diagnosis: Thyromegaly[ICD9: 240.9] Diagnosis: - I - HYPERTENSION[ICD9: 401.9] Diagnosis: ROUTINE MEDICAL EXAM[ICD9: V70.0] Diagnosis: EDEMA[ICD9: 782.3] María Elena APPIAH [facility] CPT-4: 77120 05/14/2014 OFFICE/OUTPATIENT VISIT EST Diagnosis: BRONCHITIS, ACUTE[ICD9: 466.0] Diagnosis: SINUSITIS, ACUTE[ICD9: 461.9] María Elena APPIAH [facility] CPT-4: 35566 04/21/2014 OFFICE/OUTPATIENT VISIT EST Diagnosis: SINUSITIS, ACUTE[ICD9: 461.9] June Flores [facility] C[facility]: 60380 03/04/2014 ([id number]) OFFICE/OUTPATIENT VISIT EST Diagnosis: VACCINE FOR TDAP[ICD10: Z23] María Elena APPIAH [facility] CPT-4: 44804 02/27/2014 ([id number]) OFFICE/OUTPATIENT VISIT EST Diagnosis: Seborrheic keratoses, inflamed[ICD9: 702.11] Diagnosis: ACTINIC KERATOSIS[ICD9: 702.0] Diagnosis: INSOMNIA NOS[ICD9: 780.52] [facility]: 33561 01/13/2014 OFFICE/OUTPATIENT VISIT EST 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] Diagnosis: ALLERGIC RHINITIS[ICD9: 477.9] Diagnosis: Serous otitis media[ICD9: 381.4] María Elena ValdesJj TD [facility] CPT-4: 16538 12/24/2013 ([id number]) OFFICE/OUTPATIENT VISIT EST Diagnosis: SINUSITIS, ACUTE[ICD9: 461.9] Diagnosis: ALLERGIC RHINITIS[ICD9: 477.9] 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] María Elena APPIAH [facility] CPT-4: 07957 11/12/2013 ([id number]) OFFICE/OUTPATIENT VISIT EST Diagnosis: ALLERGIC RHINITIS[ICD9: 477.9] Diagnosis: SINUSITIS, ACUTE[ICD9: 461.9] María Elena APPIAH [facility] CPT-4: 61259 10/21/2013 ([id number]) OFFICE/OUTPATIENT VISIT EST Diagnosis: ASYMPTOMATIC VARICOSE VEINS[ICD9: 454.9] Diagnosis: INSOMNIA NOS[ICD9: 780.52] María Elena PANDYA [facility] CPT-4: 59313 09/22/2013 OFFICE/OUTPATIENT VISIT EST Diagnosis: SINUSITIS, ACUTE[ICD9: 461.9] June APPIAH [facility] CPT-4: 29747 08/27/2013 ([id number]) OFFICE/OUTPATIENT VISIT EST Diagnosis: CEPHALGIA[ICD9: 784.0] Diagnosis: CEPHALGIA, TENSION[ICD9: 307.81] 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] María Elena APPIAH [facility] CPT-4: 83852 08/04/2013 ([id number]) OFFICE/OUTPATIENT VISIT EST Diagnosis: Cervicalgia[ICD9: 723.1] Diagnosis: SPASM OF MUSCLE[ICD9: 728.85] Diagnosis: CEPHALGIA, TENSION[ICD9: 307.81] María Elena APPIAH [facility] CPT-4: 32726 07/23/2013 ([id number]) OFFICE/OUTPATIENT VISIT EST 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] Diagnosis: ALLERGIC RHINITIS[ICD9: 477.9] María Elena APPIAH [facility] CPT-4: 39945 06/23/2013 ([id number]) OFFICE/OUTPATIENT VISIT EST Diagnosis: ALLERGIC RHINITIS[ICD9: 477.9] Diagnosis: ACUTE SEROUS OTITIS MEDIA[ICD9: 381.01] 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] María Elena JUARES LucioJj TD [facility] CPT-4: 44076 05/26/2013 ([id number]) OFFICE/OUTPATIENT VISIT EST Diagnosis: HYPERTENSION[ICD9: 401.9] Diagnosis: EDEMA[ICD9: 782.3] Diagnosis: Serous otitis media[ICD9: 381.4] María Elena JUARES LucioJj TD [facility] CPT-4: 04637 04/16/2013 ([id number]) OFFICE/OUTPATIENT VISIT EST Diagnosis: SINUSITIS, ACUTE[ICD9: 461.9] Diagnosis: ALLERGIC RHINITIS[ICD9: 477.9] Diagnosis: EDEMA[ICD9: 782.3] Diagnosis: Thyromegaly[ICD9: 240.9] Diagnosis: MALAISE AND FATIGUE[ICD9: 780.79] María Elena Lopez LucioJj MARIVEL [employer] [facility] CPT-4: 07091 03/05/2013 ([id number]) OFFICE/OUTPATIENT VISIT EST Diagnosis: PAIN, LOWER BACK[ICD9: 724.2] Diagnosis: SPASM OF MUSCLE[ICD9: 728.85] María Elena J[facility]ARES Luc[facility]Jj [facility]: 33119 12/23/2012 OFFICE/OUTPATIENT VISIT EST Diagnosis: Low back pain[ICD9: 724.2] Lashawn Hicks [facility]: 64270 12/16/2012 ([id number]) OFFICE/OUTPATIENT VISIT EST Diagnosis: PAIN, LOWER BACK[ICD9: 724.2] Diagnosis: SCIATICA[ICD9: 724.3] Diagnosis: Lumbar herniated disc[ICD9: 722.10] María Elena COLON LucioJj MARIVEL [employer] [facility] CPT-4: 44546 12/09/2012 ([id number]) OFFICE/OUTPATIENT VISIT EST Diagnosis: PAIN, LOWER BACK[ICD9: 724.2] Diagnosis: SCIATICA[ICD9: 724.3] Diagnosis: LUMBAR DISC DISPLACEMENT[ICD9: 722.10] María Elena MONTEROLui APPIAH DO [facility] CPT-4: 86069 12/04/2012 OFFICE/OUTPATIENT VISIT EST Diagnosis: Pneumonia[ICD9: 486] Mary SerranoRustam MARÍA ELENA APPIAH DO [facility] CPT-4: 54768 11/22/2012 ([id number]) OFFICE/OUTPATIENT VISIT EST Diagnosis: PNEUMONIA, ORGANISM[ICD9: 486] Diagnosis: Exacerbation of RAD (reactive airway disease)[ICD9: 493.92] María Elena Ortamaryjane MARÍA ELENA APPIAH DO [facility] CPT-4: 43037 11/21/2012 OFFICE/OUTPATIENT VISIT EST Diagnosis: HYPERTENSION[ICD9: 401.9] Diagnosis: Cephalgia[ICD9: 784.0] Lashawn Eckert MARÍA ELENA APPIAH DO [facility] CPT-4: 60392 10/29/2012 ([id number]) OFFICE/OUTPATIENT VISIT EST Diagnosis: MALAISE AND FATIGUE[ICD9: 780.79] Diagnosis: ARTHRALGIA-MULTIPLE SITES[ICD9: 719.49] María Elena Seamusmindimaryjane APPIAH DO [facility] CPT-4: 93242 10/14/2012 ([id number]) OFFICE/OUTPATIENT VISIT EST Diagnosis: URINARY FREQUENCY[ICD9: 788.41] María Elena Td APPIAH DO [facility] CPT-4: 00556 09/27/2012 ([id number]) OFFICE/OUTPATIENT VISIT EST Diagnosis: MALAISE AND FATIGUE[ICD9: 780.79] Diagnosis: ARTHRALGIA-MULTIPLE SITES[ICD9: 719.49] María Elena Seamusabbey KYLAH APPIAH DO [facility] CPT-4: 90147 09/25/2012 ([id number]) OFFICE/OUTPATIENT VISIT EST Diagnosis: SINUSITIS, ACUTE[ICD9: 461.9] 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] María Elena Seamusabbey MARÍA ELENA APPIAH DO [facility] CPT-4: 29473 08/29/2012 OFFICE/OUTPATIENT VISIT EST Diagnosis: ACTINIC KERATOSIS[ICD9: 702.0] Diagnosis: Inflamed seborrheic keratosis[ICD9: 702.11] Diagnosis: Skin cancer of face[ICD9: 173.31] Diagnosis: HYPERTENSION[ICD9: 401.9] María Elena SEYMOUR [facility] CPT-4: 50950 08/12/2012 ([id number]) OFFICE/OUTPATIENT VISIT EST Diagnosis: ARTHRALGIA-MULTIPLE SITES[ICD9: 719.49] Diagnosis: GOUT[ICD9: 274.9] Diagnosis: HYPERTENSION[ICD9: 401.9] Diagnosis: Tachycardia[ICD9: 785.0] María Elena HU KARLOS [facility] CPT-4: 06947 05/06/2012 ([id number]) OFFICE/OUTPATIENT VISIT EST Diagnosis: INSOMNIA NOS[ICD9: 780.52] María Elena PANDYA [facility] CPT-4: 43492 04/03/2012 ([id number]) OFFICE/OUTPATIENT VISIT EST Diagnosis: INSOMNIA NOS[ICD9: 780.52] Diagnosis: HYPERTENSION[ICD9: 401.9] Diagnosis: MIGRAINE NOS/NOT INTRCBL[ICD9: 346.90] María Elena MARIN SJj APPIAH [facility] CPT-4: 09397 03/19/2012 ([id number]) OFFICE/OUTPATIENT VISIT EST Diagnosis: CELLULITIS[ICD9: 682.9] Diagnosis: Ankle pain[ICD9: 719.47] Diagnosis: HYPERTENSION[ICD9: 401.9] María Elena MOJICAR [facility] CPT-4: 66180 02/20/2012 ([id number]) OFFICE/OUTPATIENT VISIT EST Diagnosis: MIGRAINE NOS/NOT INTRCBL[ICD9: 346.90] Diagnosis: Vomiting[ICD9: 787.03] María Elena TANNER R [facility] CPT-4: 17176 01/30/2012 ([id number]) OFFICE/OUTPATIENT VISIT EST Diagnosis: EDEMA[ICD9: 782.3] Diagnosis: HYPERTENSION[ICD9: 401.9] Diagnosis: ALLERGIC RHINITIS[ICD9: 477.9] Diagnosis: ARTHRALGIA-MULTIPLE SITES[ICD9: 719.49] María Elena WAYNDER [facility] CPT-4: 85503 01/24/2012 ([id number]) OFFICE/OUTPATIENT VISIT EST Diagnosis: SPASM OF MUSCLE[ICD9: 728.85] Diagnosis: Thoracic back pain[ICD9: 724.1] Diagnosis: Cervical pain[ICD9: 723.1] María Elena PANDYA [facility] CPT-4: 65791 01/10/2012 OFFICE/OUTPATIENT VISIT EST Diagnosis: PAIN, LOWER BACK[ICD9: 724.2] Diagnosis: LUMBAR DISC DISPLACEMENT[ICD9: 722.10] María Elena Seamusabbey MARLIN APPIAH [facility] CPT-4: 32786 12/11/2011 OFFICE/OUTPATIENT VISIT EST Diagnosis: MIGRAINE NOS/NOT INTRCBL[ICD9: 346.90] Diagnosis: SINUSITIS, ACUTE[ICD9: 461.9] María Elena APPIAH [facility] CPT-4: 95292 11/09/2011 OFFICE/OUTPATIENT VISIT EST Diagnosis: MIGRAINE NOS/NOT INTRCBL[ICD9: 346.90] Diagnosis: LYMPHADENOPATHY[ICD9: 785.6] María Elena APPIAH [facility] CPT-4: 27383 09/13/2011 OFFICE/OUTPATIENT VISIT EST Diagnosis: MALAISE AND FATIGUE[ICD9: 780.79] Diagnosis: ARTHRALGIA-MULTIPLE SITES[ICD9: 719.49] María Elena Seamusabbey MONTERO APARNAGAEL LucioJj TD [facility] CPT-4: 17017 08/31/2011 OFFICE/OUTPATIENT VISIT EST Diagnosis: SINUSITIS, ACUTE[ICD9: 461.9] María Elena Waymindimaryjane ValdesJj TD [facility] CPT-4: 75386 07/20/2011 OFFICE/OUTPATIENT VISIT EST Diagnosis: HYPERTENSION[ICD9: 401.9] Diagnosis: PAIN, LOWER BACK[ICD9: 724.2] Diagnosis: SPASM OF MUSCLE[ICD9: 728.85] María Elena Waymindimaryjane APPIAH [facility] CPT-4: 49942 07/06/2011 OFFICE/OUTPATIENT VISIT EST Diagnosis: MIGRAINE NOS/NOT INTRCBL[ICD9: 346.90] Diagnosis: HYPERTENSION[ICD9: 401.9] María Elena Hicks [facility] CPT-4: 16341 05/22/2011 OFFICE/OUTPATIENT VISIT EST Diagnosis: SINUSITIS, ACUTE[ICD9: 461.9] Diagnosis: MIGRAINE NOS/NOT INTRCBL[ICD9: 346.90] Diagnosis: Dehydration[ICD9: 276.51] Diagnosis: Vomiting[ICD9: 787.03] María Elena Hicks [facility] CPT-4: 28979 05/09/2011 ([id number]) OFFICE/OUTPATIENT VISIT EST María Elena ISAAC [facility] CPT-4: 57392 02/14/2011 ([id number]) OFFICE/OUTPATIENT VISIT EST María Elena ISAAC [facility] CPT-4: 36814 02/03/2011 ([id number]) OFFICE/OUTPATIENT VISIT EST María Elena ISAAC [facility] CPT-4: 84146 01/31/2011 ([id number]) OFFICE/OUTPATIENT VISIT EST María Elena ISAAC [facility] CPT-4: 47608 01/25/2011 ([id number]) OFFICE/OUTPATIENT VISIT EST María Elena ISAAC [facility] CPT-4: 67139 01/18/2011 ([id number]) OFFICE/OUTPATIENT VISIT EST María Elena ISAAC [facility] CPT-4: 10627 11/29/2010 ([id number]) OFFICE/OUTPATIENT VISIT, EST María Elena MONTERO [facility] CPT-4: 34926 10/10/2010 ([id number]) OFFICE/OUTPATIENT VISIT, EST María Elena MONTERO [facility] CPT-4: 91058 06/07/2010 ([id number]) OFFICE/OUTPATIENT VISIT, EST María Elena MONTERO [facility] CPT-4: 54294 04/27/2010 ([id number]) OFFICE/OUTPATIENT VISIT, EST María Elena Waymindimaryjane MONTERO [facility] CPT-4: 17361 04/05/2010 ([id number]) OFFICE/OUTPATIENT VISIT, EST María Elena [facility] CPT-4: 64171 03/09/2010 ([id number]) OFFICE/OUTPATIENT VISIT, EST María Elena [facility] CPT-4: 05347 03/03/2010 ([id number]) OFFICE/OUTPATIENT VISIT, EST María Elena [facility] CPT-4: 16976 01/17/2010 ([id number]) PREV VISIT, EST, AGE 40-64 María Elena [facility] CPT-4: 88800 12/27/2009 Plan of Care Planned Activity Notes [...] ICD-9 : 250.02 ICD-10 : E11.65 01/13/2020 Patient Education: lisinopril- [employer] [id number] Completed 01/13/2020 Patient Education: glimepiride- [employer] [id number] Completed 01/13/2020 Appointment: María Elena Appiah WPtel: [facility] [facility] 11/26/2019 Visit Diagnosis Plan: Type 2 diabetes mellitus with hy perglycemia Discussion: Januvia 100mg daily Glimepride 2mg po BID Accuchecks BID Call in 2 weeks with BS readings Get formulary book ICD-9 : 250.02 ICD-10 : E11.65 11/20/2019 Appointment: María Elena Appiah WPtel[facility] [phone] [facility] [facility] FOLLOW UP 11/20/2019 Patient Education: glimepiride- [employer] [id number] Completed 11/20/2019 Patient Education: Januvia- [employer]on [id number] Completed 11/20/2019 Visit Diagnosis Plan: Ingrowing nail [...] ICD-10 : E11.65 10/07/2019 Appointment: Kathleen Zuniga [address] [place], [place] [address] OFFICE SURGERY 10/07/2019 Visit Diagnosis Plan: Hypertriglyceridemia [...] E11.65 09/30/2019 Appointment: María Elena Appiah WPtel: [address] [place], [place] [phone] [place] CHECK UP 09/30/2019 Patient Education: Premarin- [employer]on [id number] [email or web address]/resources/getResource/61/[email or web address] Completed 09/30/2019 Appointment: María Elena Appiah WPtel: [address] [place], [place] [phone] [place] LAB 09/29/2019 Appointment: María Elena Appiah WPtel: [address] [place], [place] [phone] [place] Won't have the new insurance till Sep 10. AMARILYS Longoria 07/24/2019 Visit Diagnosis Plan: Essential (primary) hypertension Discussion: Stable Will have insurance in July and do lab then ICD-9 : 401.9 ICD-10 : I10 05/28/2019 Visit Diagnosis Plan: Fall from bed, sequela Discussio n: DC gabapentin Decrease baclofen to 10mg TID prn ICD-9 : E929.3 ICD-10 : W06.XXXS 05/28/2019 Appointment: María Elena Appiah WPtel: [address] [place], [place] [phone] US FOLLOW UP 05/28/2019 Appointment: María Elena Appiah WPtel: [address] [place], [place] [phone] [place] BP CHECK 05/19/2019 Visit Diagnosis Plan: [...] Z79.890 01/22/2019 Appointment: María Elena Appiah WPtel: [address] [place], [place] [address] US FOLLOW UP 01/22/2019 Patient Education: estradiol- [employer] C[employer]on [id number] https://[email or web address]/resources/getResource/61/[email or web address] Completed 01/22/2019 Appointment: María Elena Appiah WPtel: [address] [place] [address] US CANCELED 01/20/2019 Appointment: María Elena Appiah WPtel: [address] [place] [address] US LM NO SHOW 01/06/2019 Appointment: María Elena Appiah WPtel: [address] [place] [address] US CANCELED 10/17/2018 Appointment: María Elena Appiah WPtel: [address] [place] [address] US BP CHECK 10/09/2018 Visit Diagnosis Plan: [...] I10 09/30/2018 Appointment: María Elena Appiah WPtel: [address] [place] [address] US FOLLOW UP 09/30/2018 Visit Diagnosis Plan: [...] F51.01 08/27/2018 Appointment: María Elena Appiah WPtel: [address] [place] [address] ACUTE ILLNESS 08/27/2018 Appointment: María Elena Appiah WPtel: [address] [place] [address] US Patient stated she went out to [...] Tyle... 08/09/2018 Appointment: María Elena Appiah WPtel: [address] [place], [place] [phone] ACUTE ILLNESS 08/09/2018 Appointment: María Elena Appiah WPtel: [address] [place], [place] [phone] NO SHOW 08/08/2018 Visit Diagnosis Plan: Anxiety [...] B35.4 07/22/2018 Appointment: María Elena Appiah WPtel: [address] [place] [address] ACUTE ILLNESS 07/22/2018 Appointment: María Elena Appiah WPtel: [address] [place] [address] US INJECTION 06/19/2018 Patient Education: Patient Medication [...] ICD-10 : L03.031 06/17/2018 Appointment: Kathleen Zuniga [address] [place] [address] ACUTE ILLNESS 06/17/2018 Patient Education: Patient Medication [...] ICD-10 : B02.9 05/16/2018 Appointment: Kathleen Zuniga [address] [place], [place] [id number] ACUTE ILLNESS 05/16/2018 Patient Education: Patient Medication [...] ICD-10 : L03.115 03/20/2018 Appointment: Kathleen Zuniga [address] [place] [address] FOLLOW UP 03/20/2018 Patient Education: Patient Medication [...] ICD-10 : L03.115 03/18/2018 Appointment: Kathleen Zuniga [address] [place], [place] [address] FOLLOW UP 03/18/2018 Patient Education: Patient Medication [...] : L03.115 03/15/2018 Appointment: [facility] [facility] 03/15/2018 Patient Education: Patient Medication [...] : J01.90 02/11/2018 Appointment: Kathleen Zuniga [address] [facility] ACUTE ILLNESS 02/11/2018 Patient Education: Patient Medication Summary Completed 02/11/2018 Appointment: María Elena Appiah WPtel: [phone] [facility] INJECTION 02/01/2018 Patient Education: Patient Medication [...] : M51.16 01/30/2018 Appointment: Kathleen Zuniga [address] [facility] ACUTE ILLNESS 01/30/2018 Patient Education: Patient Medication [...] E11.65 12/18/2017 Appointment: María Elena Appiah WPtel: [facility] Annual Well Visit 12/18/2017 Patient Education: Patient Medication Summary Completed 12/18/2017 Care Plan: Referral Order SNOMED-CT : [id number] Pending 12/18/2017 Appointment: María Elena Appiah WPtel: [phone] [facility] US INJECTION 12/10/2017 Patient Education: Patient Medication [...] ICD-10 : L03.031 12/07/2017 Appointment: Kathleen Zuniga [address] [place], [place] [id number] ACUTE ILL[facility] 12/07/2017 Patient Education: Patient Medication [...] ICD-10 : J01.00 10/08/2017 Appointment: Kathleen Zuniga [address] [place], [place] [id number] 10/08/2017 Patient Education: Patient Medication Summary Completed 10/08/2017 Appointment: María Elena Appiah WPtel: [phone] [facility] IN[facility] 09/21/2017 Patient Education: Patient Medication Summary [...] ICD-10 : R06.83 09/20/2017 Appointment: Kathleen Zuniga [address] [place], [place] [id number] AC[facility] ILL[facility] 09/20/2017 Patient Education: Patient Medication [...] ICD-10 : L60.0 08/29/2017 Appointment: Kathleen Zuniga [address] [place], [place] [id number] OFFICE SURGERY 08/29/2017 Patient Education: Patient Medication Summary Completed 08/29/2017 Visit Diagnosis Plan: Actinic keratosis Discussion: Cr yotherapy as above ICD-9 : 702.0 ICD-10 : L57.0 08/01/2017 Appointment: María Elena Appiah WPtel: [phone] [facility] OFFICE SURGERY 08/01/2017 Patient Education: Patient Medication Summary Completed 08/01/2017 Appointment: María Elena Appiah WPtel: [phone] [facility] [place] PATIENT THOUGHT APPOINTMENT WAS TOMORROW 07/26/17 CALLED 15 MINUTES BEFORE APPT TO SAY SHE DIDN'T HAVE ANYONE TO COVER HER BUSINESS AND WOULD NOT MAKE IT NO SHOW 07/25/2017 Visit Diagnosis Plan: Cellulitis of left toe Discussio n: Clindamycin and notify if worsening or persistis ICD-9 : 681.10 ICD-10 : L03.032 07/19/2017 App[facility]ment: [id number] [place] [facility]VIEW 07/19/2017 Patient Education: Patient Medication Summary Completed 07/19/2017 Appointment: María Elena Appiah WPtel: [phone] [facility] [id number] [place]CELED 07/04/2017 Visit Diagnosis Plan: Generalized hyperhidrosis Discus ian: CBC, CMP, TSH, free T4 ordered to assess. will review labs. ICD-9 : 780.8 ICD-10 : R61 06/27/2017 Visit Diagnosis Plan: Chronic sinusitis, unspecified D iscussion: Referral sent to dr. albarado in [place] per patient request. patient has been treated multiple times for sinus infections with no recovery. patient was seen by dr sanchez in the past with no interventions. patient has deviated septum which may be affecting her sinuses. 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, including hip Discussion: Shave removal of above lesio n--sent to pathology ICD-9 : 216.7 ICD-10 : D23.72 01/24/2017 Appointment: María Elena Appiah WPtel: [address] [place], [place] [phone] 01/23 confirmed ~sl OFFICE SURGERY 01/24/2017 Patient Education: Patient Medication Summary Completed 01/24/2017 Appointment: Gonzalo Loan [address] [place] [address] 01/09 rescheduled~sl RESCHEDULED 01/15/2017 Visit Diagnosis Plan: [...] L81.4 12/13/2016 Appointment: María Elena Appiah WPtel: [address] [place], [place] [phone] [place] 12/12 confirmed ~sl MEDICATION REVIEW 12/13/2016 Patient Education: Patient Medication Summary Completed 12/13/2016 Appointment: María Elena Appiah WPtel: [address] [place], [place] [phone] US rescheduled for 12/13/16 at 11am RESCHEDULED 0 12/06/2016 Appointment: María Elena Appiah [facility]Ptel[facility] [phone] [id number] [facility] 11/23/2016 Patient Education: Patient [...] F51.01 11/01/2016 Appointment: María Elena Appiah WPtel: [facility] [id number] [facility] 10/31 lm `sl 11/01 lm`sl MEDICATION REVIEW 017 Patient Education: Patient Medication Summary Completed 11/01/2016 Referral: Canelo Overton WPtel: [phone] [id number] [place] Referral Initiated 10/30/2016 Visit Diagnosis Plan: [...] Z01.419 10/17/2016 Appointment: María Elena Appiah WPtel: [address] [place], [place] [id number] [place] 10/16 confirmed ~sl PAP 10/17/2016 Patient Education: Patient Medication Summary Completed 10/17/2016 Care Plan: MAMMOGRAM SCREENING LOINC : 2 6347-5 Pending 10/17/2016 Visit Diagnosis Plan: Other seasonal allergic rhinitis Discussion: Decadron/Garamycin Nasal [place] Mix Too soon for steroid Retry zyrtec 10mg daily ICD-9 : 477.9 ICD-10 : J30.2 10/10/2016 Appointment: María Elena Appiah WPtel: [address] [place], [place] [phone] FOLLOW UP 10/10/2016 Patient Education: Patient Medication Summary Completed 10/10/2016 Appointment: María Elena Appiah WPtel: [address] [place], [place] [phone] 10/02 reschedule `sl RESCHEDULED 10/02/2016 Visit Plan: See surgery for removal of n ew left arm lesion and right foot lesion Lyrica to use next month for left arm paresthesias Continue current meds Discussed sunscreen/sunblock combo 09/19/2016 Appointment: María Elena Appiah WPtel: [address] [place] [address] 09/18 confirmed ~sl FOLLOW UP 09/19/2016 Patient Education: Patient Medication Summary Completed 09/19/2016 Patient Education: Patient Medication Summary Completed 09/18/2016 Care Plan: MAMMOGRAM BOTH BREASTS LOINC : 20861-2 Pending 09/18/2016 Visit Plan: Discussed that needs [...] sinuses 08/24/2016 Appointment: María Elena Appiah WPtel: [address] [place], [place] [phone] ACUTE ILLNESS 08/24/2016 Patient Education: Patient Medication Summary Completed 08/24/2016 Patient Education: Patient Medication Summary Completed 08/23/2016 Care Plan: MAMMOGRAM SCREENING LOINC : 2 6347-5 Pending 08/23/2016 Visit Plan: Finish doxycycline Add Breo 100/25 1 p BID for 2 weeks If not improving within next 2 days will get CXR 08/16/2016 Appointment: María Elena Appiah WPtel: [address] [place] [address] ACUTE ILLNESS 08/16/2016 Patient Education: Patient Medication Summary Completed 08/16/2016 Visit Plan: Supportive care. Rest, Fluid s, Tylenol/Motrin prn fever or bodyaches. Notify if worsening symptoms. Doxycyline and Prednisone 08/10/2016 Appointment: María Elena Appiah WPtel: [address] [place] [address] 08/09 lm`sl....confirmed-sp FOLLOW UP 09/2015 Patient Education: Patient Medication Summary Completed 08/10/2016 Visit Plan: Saline nasal flushes prn. Ty lenol/Motrin prn headache. Notify if persists/symptoms worsening. Dexamethasone 8mg IM today May use coricedan and mucinex 08/02/2016 Appointment: María Elena Appiah WPtel: [address] [place] [address] ACUTE ILLNESS 08/02/2016 Patient Education: Patient Medication Summary Completed 08/02/2016 Visit Plan: Cryotherapy as above and lef t forearm lesion removal as above with 5-0 punch biopsy and sent to path Return in 10 days for suture removal 08/01/2016 Appointment: María Elena Appiah WPtel: [address] [place] [address] 07/31 confirmed`~sl OFFICE SURGERY 08/01/2016 Patient Education: Patient Medication Summary Completed 08/01/2016 Visit Plan: Stop clindamycin Check CBC, CMP, ESR now/STAT 07/27/2016 Appointment: María Elena Appiah WPtel: [address] [place] [address] ACUTE ILLNESS 07/27/2016 Patient Education: Patient Medication Summary Completed 07/27/2016 Visit Plan: Update lab and check ABIs to start with Will likely need cardiology evaluation to rule out PVD Clindamycin for 10 days Daily yogurt or probiotic Will return for removal of left arm lesions 07/20/2016 Appointment: María Elena Appiah WPtel: [address] [place], [place] [phone] ACUTE ILLNESS 07/20/2016 Patient Education: Patient Medication Summary Completed 07/20/2016 Patient Education: Patient Medication Summary Completed 07/20/2016 Care Plan: MAMMOGRAM BOTH BREASTS LOINC : 55784-2 Pending 07/20/2016 Care Plan: US EXAM CHEST LOINC : 58517-9 Pending 07/20/2016 Visit Plan: Wound culture collected from left great toe Appearance is somewhat staph like Rx as above Wound cleanser and skin care reviewed May need to add oral antibiotic if sores do not heal or continue to reoccur 07/06/2016 Appointment: Loan Sánchez [address] [place] [address] ACUTE ILLNESS 07/06/2016 Patient Education: Patient Medication Summary Completed 07/06/2016 Appointment: María Elena Appiah WPtel: [address] [place], [place] [phone] US INJECTION 05/25/2016 Patient Education: Patient Medication Summary Completed 05/25/2016 Visit Plan: Saline nasal flushes prn. Ty lenol/Motrin prn headache. Notify if persists/symptoms worsening. Dexamethasone and Rocephin given 04/26/2016 Appointment: María Elena Appiah WPtel: [address] [place], [place] [phone] ACUTE ILLNESS 04/26/2016 Patient Education: Patient Medication Summary Completed 04/26/2016 Visit Plan: Check CBC, CMP, TSH, FreeT4, HbA1C, estradiol, lipids in AM 03/02/2016 Appointment: María Elena Appiah WPtel: [address] [place], [place] [phone] 03/01 lm~sl ACUTE ILLNESS 03/02/2016 Patient Education: Patient Medication Summary Completed 03/02/2016 Visit Plan: Exam is nearly normal Needs to be taking daily antihistamine Would prefer to use oral steroids instead of shot but patient insist that oral steroids cause horrible headaches for her Will given kenalog IM instead 02/09/2016 Appointment: Loan Sánchez [address] [place] [address] ACUTE ILLNESS 02/09/2016 Patient Education: Patient Medication Summary Completed 02/09/2016 Visit Plan: Culture urine Macrobid DC xa nax Trial of Ativan 1mg q HS 01/24/2016 Appointment: María Elena Appiah WPtel: [address] [place] [address] ACUTE ILLNESS 01/24/2016 Patient Education: Patient Medication Summary Completed 01/24/2016 Visit Plan: No steroid or rocephin injec tion warranted Can have oral prednisone Continue current home regimen Needs to follow up with Dr Sanchez if problems persist 12/23/2015 Appointment: Loan Sánchez [address] [place] [address] ACUTE ILLNESS 12/23/2015 Patient Education: Patient Medication Summary Completed 12/23/2015 Visit Plan: Saline nasal flushes prn. Ty lenol/Motrin prn headache. Notify if persists/symptoms worsening. Kenalog 40mg IM today 12/08/2015 Appointment: María Elena Appiah WPtel: [address] [place] [address] 12/06 confirmed~ ACUTE ILLNESS 12/08/2015 Patient Education: Patient Medication Summary Completed 12/08/2015 Appointment: María Elena Appiah WPtel: [address] [place] [address] ACUTE ILLNESS 11/18/2015 Patient Education: Patient Medication Summary Completed 10/11/2015 Appointment: María Elena Appiah WPtel: [address] [place] [address] [place] INJECTION 10/07/2015 Patient Education: Patient Medication Summary Completed 10/07/2015 Visit Plan: Check renal arterial doppler s and ECHO Change amlodopine to lotrel 5/20mg q HS Will need stress test as well Check CMP, uric acid, ESR 10/06/2015 Appointment: María Elena Appiah WPtel: [address] [place] [address] ACUTE ILLNESS 10/06/2015 Patient Education: Patient Medication Summary Completed 10/06/2015 Patient Education: [facility] [place] [facility] [employer] - Amlodipine Besylate - 18-64 - Dynamic Portal ID Completed 10/06/2015 Appointment: María Elena Appiah WPtel: [address] [place], [place] [phone] [place] FOLLOW UP 09/22/2015 Visit Plan: Cephalexin 500 mg PO bid Mery ly topical Mupirocin to lesions on left lateral neck and face Follow-up in one week. Sooner if symptoms worsen 09/14/2015 Appointment: June Flores WPtel: [address] [place] [address] ACUTE ILLNESS 09/14/2015 Patient Education: Patient Medication Summary Completed 09/14/2015 Visit Plan: Change bystolic to bedtime d osing and amlodopine to morning dosing Cryotherapy as above to AKs 09/07/2015 Appointment: María Elena Appiah WPtel: [address] [place], [place] [phone] 09/06 appointment made and confirmed ~ FOLLOW UP 09/07/2015 Patient Education: Patient Medication Summary Completed 09/07/2015 Visit Plan: Increase bystolic back to 20 mg daily but will split and take 10mg in AM and 10mg in PM Stress Reducers 08/18/2015 Appointment: María Elena Appiah WPtel: [address] [place], [place] [phone] 08/17/15 appt confirmed cn ACUTE ILLNESS 08/18 Patient Education: Patient Medication Summary Completed 08/18/2015 Appointment: María Elena Appiah WPtel: [address] [place], [place] [phone] BP CHECK 07/07/2015 Patient Education: Patient Medication Summary Completed 07/07/2015 Appointment: María Elena Appiah WPtel: [address] [place], [place] [phone] BP CHECK 06/24/2015 Patient Education: Patient Medication Summary Completed 06/24/2015 Appointment: María Elena Appiah WPtel: [address] [place] [address] BP CHECK 06/21/2015 Patient Education: Patient Medication Summary Completed 06/21/2015 Visit Plan: Lab discussed Continue curre nt meds and lifestyle modification Recheck lab in 6mos 06/16/2015 Appointment: María Elena Appiah WPtel: [address] [place] [address] 06/15 confirmed FOLLOW UP 06/16/2015 Patient Education: Patient Medication Summary Completed 06/16/2015 Patient Education: Patient Medication Summary Completed 06/15/2015 Visit Plan: Increase cymbalta to 60mg q HS Keep clonidine at current dose Recheck 2weeks Change xanax to klonopin 06/02/2015 Appointment: María Elena Appiah WPtel: [address] [place] [address] 06/02 lm FOLLOW UP 06/02/2015 Patient Education: Patient Medication Summary Completed 06/02/2015 Appointment: María Elena Appiah WPtel: [address] [place] [address] ACUTE ILLNESS 05/24/2015 Visit Plan: Increase clonidine to 0.2mg q HS Add cymbalta 30mg q HS Recheck 2weeks Stress Reducers Check fasting lab Discussed sleep study 05/20/2015 Appointment: María Elena Appiah WPtel: [address] [place] [address] ACUTE ILLNESS 05/20/2015 Patient Education: Patient Medication Summary Completed 05/20/2015 Patient Education: [facility] [place] [facility] [employer] - Cymbalta - 18-64 - Dynamic Portal ID Completed 05/20/2015 Appointment: María Elena Appiah WPtel: [address] [place] [address] BP CHECK 05/19/2015 Patient Education: Patient Medication Summary Completed 05/19/2015 Visit Plan: Topical Bactroban alternatin g with topical betamethasone Recheck 2weeks 05/10/2015 Appointment: María Elena Appiahl: [address] [place], [place] [phone] 05/07 vm cn...05/07 appt confirmed OFFICE SURGER Y 05/10/2015 Patient Education: Patient Medication Summary Completed 05/10/2015 Ref[facility]: [id number] Referral Initiated 05/04/2015 Visit Plan: Saline nasal flushes prn. Ty lenol/Motrin prn headache. Notify if persists/symptoms worsening. Depomedrol 40mg IM today 03/16/2015 Appointment: María Elena Appiah WPtel: [address] [place] [address] ACUTE ILLNESS 03/16/2015 Patient Education: Patient Medication Summary Completed 03/16/2015 Appointment: María Elena Appiah WPtel: [address] [place] [address] ER Follow UP 03/09/2015 Visit Plan: Cryotherapy to lesions as ab ove 10/27/2014 Appointment: María Elena Appiah WPtel: [address] [place] [address] OFFICE SURGERY 10/27/2014 Patient Education: Patient Medication Summary Completed 10/27/2014 Appointment: June Flores WPtel: [address] [place] [address] ACUTE ILLNESS 09/11/2014 Patient Education: Patient Medication Summary Completed 09/11/2014 Visit Plan: Lab discussed Lipitor 10mg d aily Coenzyme Q-10 400mg daily Vitamin D3 5000u daily Recheck lipids with LFTs in 3mos then fwup 08/31/2014 Appointment: María Elena Appiah WPtel: [address] [place] [address] 08/28 voicemail FOLLOW UP 08/31/2014 Patient Education: Patient Medication Summary Completed 08/31/2014 Appointment: María Elena Appiah WPtel: [address] [place], [place] [phone] LAB 08/27/2014 Appointment: María Elena Appiah WPtel: [address] [place] [address] LAB 08/27/2014 Patient Education: Patient Medication Summary Completed 08/27/2014 Appointment: María Elena Appiah WPtel: [address] [place] [address] ACUTE ILLNESS 07/23/2014 Appointment: María Elena Appiah WPtel: [address] [place] [address] ACUTE ILLNESS 07/21/2014 Patient Education: Patient Medication Summary Completed 07/21/2014 Visit Plan: Kenalog 40mg IM today Contin ue narendra and singulair Add Flonase 07/15/2014 Appointment: María Elena Appiah WPtel: [address] [place] [address] ACUTE ILLNESS 07/15/2014 Appointment: María Elena Appiah WPtel: [address] [place] [address] ACUTE ILLNESS 07/15/2014 Patient Education: Patient Medication Summary Completed 07/15/2014 Visit Plan: Will do metolazone 2.5mg prn with 6 potassium and see if causes as severe cramping Trial of of seroquel XR 50mg q PM with evening meal and let us know how works 05/18/2014 Appointment: María Elena Appiah WPtel: [address] [place] [address] 05/15 left message FOLLOW UP 05/18/2014 Patient Education: Patient Medication Summary Completed 05/18/2014 Appointment: María Elena Appiah WPtel: [address] [place], [place] [phone] LAB 05/14/2014 Patient Education: Patient Medication Summary Completed 05/14/2014 Appointment: María Elena Appiah WPtel: [address] [place], [place] [phone] [place] INJECTION 04/22/2014 Visit Plan: Tisha and Miranda today a nd finish abx given from urgent care 04/21/2014 Appointment: María Elena Appiah WPtel: [address] [place], [place] [phone] [place] INJECTION 04/21/2014 Patient Education: Patient Medication Summary Completed 04/21/2014 Appointment: June Flores WPtel: [address] [place], [place] [phone] ACUTE ILLNESS 03/04/2014 Patient Education: Patient Medication Summary Completed 03/04/2014 Appointment: María Elena Appiah WPtel: [address] [place], [place] [phone] [place] INJECTION 02/27/2014 Patient Education: Patient Medication Summary Completed 02/27/2014 Visit Plan: Cryotherapy as above to all lesions Patient wants to try no meds for insomnia for a while and see how goes 01/13/2014 Appointment: María Elena Appiah WPtel: [address] [place] [address] OFFICE SURGERY 01/13/2014 Patient Education: Patient Medication Summary Completed 01/13/2014 Visit Plan: Stop Melatonin Stop Soma Tri al of trazadone 75mg q HS See ENT for possible tubes as has had chronic ETD and serous otitis media with numerous steroids 12/24/2013 Appointment: María Elena Appiah WPtel: [address] [place], [place] [phone] ACUTE ILLNESS 12/24/2013 Patient Education: Patient Medication Summary Completed 12/24/2013 Visit Plan: Saline nasal flushes prn. Ty lenol/Motrin prn headache. Notify if persists/symptoms worsening. 11/12/2013 Appointment: María Elena Appiah WPtel: [address] [place], [place] [phone] ACUTE ILLNESS 11/12/2013 Patient Education: Patient Medication Summary Completed 11/12/2013 Appointment: María Elena Appiah WPtel: [address] [place] [address] ACUTE ILLNESS 10/21/2013 Patient Education: Patient Medication Summary Completed 10/21/2013 Visit Plan: Sleep hygiene and sleep rout ine Melatonin 10mg q HS Support stockings and observe 09/22/2013 Appointment: María Elena Appiah WPtel: [address] [place] [address] ACUTE ILLNESS 09/22/2013 Patient Education: Patient Medication Summary Completed 09/22/2013 Appointment: June Flores WPtel: [address] [place] [address] ACUTE ILLNESS 08/27/2013 Patient Education: Patient Medication Summary Completed 08/27/2013 Visit Plan: Proceed with CT scan of head /neck Proceed with occipital nerve injections Butrans 20mcg patch weekly until can get into see Dr. Mcdonough for injections 08/04/2013 Appointment: María Elena Appiah WPtel: [address] [place] [address] FOLLOW UP 08/04/2013 Patient Education: Patient Medication Summary Completed 08/04/2013 Visit Plan: OMT done Daily neck stretche s, moist heat Increase Celebrex to 200mg BID Add flexeril 07/23/2013 Appointment: María Elena Appiah WPtel: [address] [place] [address] 07/22 voicemail FOLLOW UP 07/23/2013 Patient Education: Patient Medication Summary Completed 07/23/2013 Appointment: María Elena Appiah WPtel: [address] [place] [address] ACUTE ILLNESS 06/23/2013 Patient Education: Patient Medication Summary Completed 06/23/2013 Appointment: María Elena Appiah WPtel: [address] [place] [address] ACUTE ILLNESS 05/26/2013 Patient Education: Patient Medication Summary Completed 05/26/2013 Visit Plan: Decrease clonidine to 0.1mg TID If BP remains stable consider decreasing amlodopine Prednisone for 5 days BP check in 1mo 04/16/2013 Appointment: María Elena Appiah WPtel: [address] [place] [address] 04/14 pt called and confirmed appt FOLLOW UP 04/16/2013 Patient Education: Patient Medication Summary Completed 04/16/2013 Appointment: María Elena Appiah WPtel: [address] [place] [address] ACUTE ILLNESS 03/05/2013 Patient Education: Patient Medication Summary Completed 03/05/2013 Visit Plan: Pt has MARIA ELENA on with Dr. Sharonda Arita Butrans patch Refill Hydrocodone early tomorrow 12/23/2012 Appointment: María Elena Appiah WPtel: [address] [place] [address] FOLLOW UP 12/23/2012 Patient Education: Patient Medication Summary Completed 12/23/2012 Appointment: Lashawn Eckert WPtel: [address] [place] [address] ACUTE ILLNESS 12/16/2012 Patient Education: Patient Medication Summary Completed 12/16/2012 Visit Plan: Proceed with updated MRI of LS spine Continue gabapentin and add soma and diclofenac Will likely need to go for another epidural 12/09/2012 Appointment: María Elena Appiah WPtel: [address] [place] [address] ACUTE ILLNESS 12/09/2012 Patient Education: Patient Medication Summary Completed 12/09/2012 Visit Plan: Injection as above Finish me drol dose pack Chiropracter this afternoon 12/04/2012 Appointment: María Elena Appiah WPtel: [address] [place] [address] ACUTE ILLNESS 12/04/2012 Patient Education: Patient Medication Summary Completed 12/04/2012 Appointment: Mary Tillman WPtel: [address] [place] [address] FOLLOW UP 11/22/2012 Patient Education: Patient Medication Summary Completed 11/22/2012 Appointment: María Elena Appiah WPtel: [address] [place] [address] ACUTE ILLNESS 11/21/2012 Patient Education: Patient Medication Summary Completed 11/21/2012 Appointment: María Elena Appiah WPtel: [address] [place] [address] BP CHECK 11/07/2012 Patient Education: Patient Medication [...] BP re-check. 10/29/2012 Appointment: Lashawn Eckert WPtel: [address] [place] [address] ACUTE ILLNESS 10/29/2012 Patient Education: Patient Medication Summary Completed 10/29/2012 Appointment: María Elena Appiah WPtel: [address] [place] [address] ACUTE ILLNESS 10/14/2012 Patient Education: Patient Medication Summary Completed 10/14/2012 Appointment: María Elena Appiah WPtel: [address] [place] [address] UA 09/27/2012 Patient Education: Patient Medication Summary Completed 09/27/2012 Appointment: María Elena Appiah WPtel: [address] [place] [address] ACUTE ILLNESS 09/25/2012 Patient Education: Patient Medication Summary Completed 09/25/2012 Appointment: María Elena Appiah WPtel: [address] [place] [address] BP CHECK 09/24/2012 Appointment: María Elena Appiah WPtel: [address] [place], [place] [phone] ACUTE ILLNESS 08/29/2012 Patient Education: Patient Medication Summary Completed 08/29/2012 Visit Plan: Cryotherapy as above See Karlos m for right ear lesion--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 ACUTE ILLNESS 05/06/2012 Patient Education: Patient Medication Summary Completed 05/06/2012 Visit Plan: Pt wants to hold on any furt her sleep medications 04/03/2012 Appointment: María Elena Appiah WPtel: [address] [place] [address] FOLLOW UP 04/03/2012 Patient Education: Patient Medication Summary Completed 04/03/2012 Appointment: María Elena Appiah WPtel: [address] [place], [place] [phone] FOLLOW UP 03/19/2012 Patient Education: Patient Medication Summary Completed 03/19/2012 Appointment: María Elena Appiah WPtel: [address] [place], [place] [address] BP CHECK 02/22/2012 Patient Education: Patient Medication Summary Completed 02/22/2012 Appointment: María Elena Appiah WPtel: [address] [place], [place] [phone] BP CHECK 02/21/2012 Patient Education: Patient Medication Summary Completed 02/21/2012 Visit Plan: Doxycycline and bactroban fo r foot Supportive care on ankles and knees Add norvasc for BP 02/20/2012 Appointment: María Elena Appiahtel: [address] [place] [address] ER Follow UP 02/20/2012 Patient Education: Patient Medication Summary Completed 02/20/2012 Appointment: María Elena Appiahtel: [address] [place] [address] ACUTE ILLNESS 01/30/2012 Patient Education: Patient Medication Summary Completed 01/30/2012 Appointment: María Elena Appiahtel: [address] [place] [address] ACUTE ILLNESS 01/24/2012 Patient Education: Patient Medication Summary Completed 01/24/2012 Visit Plan: Daily back stretches, moist heat, Biofreeze prn OMT done 01/10/2012 Appointment: María Elena Appiahtel: [address] [place] [address] ACUTE ILLNESS 01/10/2012 Patient Education: Patient Medication Summary Completed 01/10/2012 Appointment: María Elena Appiahtel: [address] [place] [address] FOLLOW UP 12/11/2011 Patient Education: Patient Medication Summary Completed 12/11/2011 Appointment: María Elena Appiahtel: [address] [place] [address] ACUTE ILLNESS 11/09/2011 Patient Education: Patient Medication Summary Completed 11/09/2011 Appointment: María Elena Appiahtel: [address] [place] [address] ACUTE ILLNESS 09/13/2011 Patient Education: Patient Medication Summary Completed 09/13/2011 Visit Plan: Check CBC, TSH, Free T4, CMP , ESR, Vit D, B12 now Start Prednisone today 08/31/2011 Appointment: María Elena Appiahtel: [address] [place], [place] [phone] ACUTE ILLNESS 08/31/2011 Patient Education: Patient Medication Summary Completed 08/31/2011 Appointment: María Elena Appiahtel: [address] [place], [place] [phone] [place] INJECTION 07/20/2011 Patient Education: Patient Medication Summary Completed 07/20/2011 Visit Plan: Continue current meds Monite r BP Cont stretches from PT 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 07/06/2011 Appointment: María Elena Appiah WPtel: [address] [place] [address] FOLLOW UP 07/06/2011 Patient Education: Patient Medication Summary Completed 07/06/2011 Appointment: María Elena Appiah WPtel: [address] [place] [address] BP CHECK 06/06/2011 Patient Education: Patient Medication Summary Completed 06/06/2011 Visit Plan: Add Bystolic at 2.5mg QAM Ad d Robaxin 750mg 2 po q HS BP check in 2wks 05/22/2011 Appointment: María Elena Appiahtel: [address] [place] [address] FOLLOW UP 05/22/2011 Patient Education: Patient Medication Summary Completed 05/22/2011 Appointment: María Elena Appiah WPtel: [address] [place], [place] [phone] ER Follow UP 05/09/2011 Patient Education: Patient Medication Summary Completed 05/09/2011 Appointment: María Elena Appiah WPtel: [address] [place] [address] [place] FOLLOW UP 02/22/2011 Visit Plan: Rx written for Hydrocodone 1 0/325mg #240 See Ortho 02/14/2011 Appointment: María Elena Appiah WPtel: [address] [place], [place] [phone] OMT 02/14/2011 Patient Education: Patient Medication Summary [...] lab work. 02/03/2011 Appointment: Lashawn Eckert WPtel: [address] [place] [address] ACUTE ILLNESS 02/03/2011 Patient Education: Patient Medication Summary Completed 02/03/2011 Visit Plan: OMT done Cont daily stretche s 01/31/2011 Appointment: María Elena Appiah WPtel: [address] [place] [address] ACUTE ILLNESS 01/31/2011 Patient Education: Patient Medication Summary Completed 01/31/2011 Visit Plan: Continue pain meds OMT done Proceed with PT No work this summer01/25/2011 Appointment: María Elena Appiah WPtel: [address] [place] [address] ACUTE ILLNESS 01/25/2011 Patient Education: Patient Medication Summary Completed 01/25/2011 Visit Plan: Start PT Long discussion abo ut getting pain meds from only us and can only have max of 4grams of tylenol per day Change to Hydrocodone 10/325mg 1- 2 po TID prn pain--#180 called to Radha 01/18/2011 Appointment: María Elena Appiah WPtel: [address] [place] [address] FOLLOW UP 01/18/2011 Patient Education: Patient Medication Summary Completed 01/18/2011 Visit Plan: Daily back stretches, moist heat, Biofreeze prn 11/29/2010 Appointment: María Elena Appiah WPtel: [address] [place], [place] [phone] ER Follow UP 11/29/2010 Patient Education: Patient Medication Summary Completed 11/29/2010 Visit Plan: Saline nasal flushes prn. Ty lenol/Motrin prn headache. Notify if persists/symptoms worsening. Finish augmentin Add Medrol Dose Pack 10/10/2010 Appointment: María Elena Appiah WPtel: [address] [place], [place] [phone] ACUTE ILLNESS 10/10/2010 Patient Education: Patient Medication Summary Completed 10/10/2010 Visit Plan: Cryotherapy x3 to multiple l esions on both forearms 07/19/2010 Appointment: María Elena Appiah WPtel: [address] [place] [address] OFFICE SURGERY 07/19/2010 Patient Education: Patient Medication Summary Completed 07/19/2010 Appointment: María Elena Appiah WPtel: [address] [place] [address] BP CHECK 07/06/2010 Patient Education: Patient Medication Summary Completed 07/06/2010 Appointment: María Elena Appiah WPtel: [address] [place], [place] [phone] BP CHECK 06/30/2010 Patient Education: Patient Medication Summary Completed 06/30/2010 Appointment: María Elena Appiah WPtel: [address] [place], [place] [phone] BP CHECK 06/20/2010 Patient Education: Patient Medication Summary Completed 06/20/2010 Visit Plan: Change Diovan to Exforge 160 /5mg QD OMT done to thoracics BP check in 2wks 06/07/2010 Appointment: María Elena Appiah WPtel: [address] [place], [place] [phone] FOLLOW UP 06/07/2010 Patient Education: Patient Medication Summary Completed 06/07/2010 Appointment: María Elena Appiah WPtel: [address] [place] [address] BP CHECK 06/03/2010 Patient Education: Patient Medication Summary Completed 06/03/2010 Appointment: María Elena Appiah WPtel: [address] [place] [address] BP CHECK 06/01/2010 Patient Education: Patient Medication Summary Completed 06/01/2010 Visit Plan: Irritated skin tags to left neck x2 excised at base with scissors and base cauterized 05/30/2010 Appointment: María Elena Appiah WPtel: [address] [place] [address] OFFICE SURGERY 05/30/2010 Patient Education: Patient Medication Summary Completed 05/30/2010 Visit Plan: Saline nasal flushes prn. Ty lenol/Motrin prn headache. Notify if persists/symptoms worsening. Restart Nasonex Has allergy testing set for May 25 04/27/2010 Appointment: María Elena Appiah WPtel: [address] [place] [address] ACUTE ILLNESS 04/27/2010 Patient Education: Patient Medication Summary Completed 04/27/2010 Visit Plan: Saline nasal flushes prn. Ty lenol/Motrin prn headache. Notify if persists/symptoms worsening. Omnaris BID plus injections 04/05/2010 Appointment: Marí aElena Appiah WPtel: [address] [place] [address] ACUTE ILLNESS 04/05/2010 Patient Education: Patient Medication Summary Completed 04/05/2010 Visit Plan: Saline nasal flushes prn. Ty lenol/Motrin prn headache. Notify if persists/symptoms worsening. 03/09/2010 Appointment: María Elena Appiah WPtel: [address] [place] [address] ACUTE ILLNESS 03/09/2010 Patient Education: Patient Medication Summary Completed 03/09/2010 Visit Plan: Cont Clonidine as is Cont Pr emarin Fwup with surgery as scheduled 03/03/2010 Appointment: María Elena Appiah WPtel: [address] [place], [place] [phone] FOLLOW UP 03/03/2010 Patient Education: Patient Medication Summary Completed 03/03/2010 Visit Plan: Check Pelvic US now Discusse tacho Sal C vs Hysterectomy 01/17/2010 Appointment: María Elena Appiah WPtel: [address] [place], [place] [phone] ACUTE ILLNESS 01/17/2010 Patient Education: Patient Medication Summary Completed 01/17/2010 Visit Plan: Check fasting lab and schedu le Mammogram 2gm Na Diet Trial of Ambien 10mg qhs Fwup pending lab results 12/27/2009 Appointment: María Elena Appiah WPtel: [address] [place] [address] ESTABLISHED PATIENT 12/27/2009 Patient Education: Patient Medication Summary Completed 12/27/2009 Referral: Canelo Overton WPtel: [address] [id number] [place] Referral Initiated Referral: Philipp Flores WPtel: [address] [id number] [place] Referral Appointment Requested Instructions Comment . [...]
--- OUTSIDE RECORDS SUMMARY | 2020-03-13 04:55 | XMS REPORT | CCD ---
Author Author Gale Appiah D.O. 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 Name Role Phone María Elena Appiah D.O., PP Unavailable CCM Unavailable Summary Purpose Interface Exchange Insurance Providers Payer name Policy type / Coverage type Covered libertarian ID Effective Begin Date Effective End Date [facility] [address] Commercial Insurance [id number] Unknown Family History Family History data not found Social History Social History Element Codes Description Effective Dates Tobacco history SNOMED CT: [id number] Never smoker 05/22/2011 Allergies, Adverse Reactions, Alerts [...] Fill Instructions glimepiride 4 mg tablet RxNorm: 648810 1 Tablet(s) Oral two times a day replaces 2mg dose 01/13/2020 04/12/2020 Active lisinopril 40 mg tablet RxNorm: 686194 1 Tablet(s) Oral QD repl aces 20mg dose 01/13/2020 04/12/2020 Active hydrocodone 10 mg-acetaminophen 325 mg tablet RxNorm: 446097 1-2 Tablet(s) Oral three times a day as needed for pain 01/12/2020 No Stop Date Active cyclobenzaprine 10 mg tablet RxNorm: 705747 TAKE ONE TA BLET BY MOUTH THREE TIMES A DAY NEEDED FOR MUSCLE SPASMS 01/05/2020 No Stop Date Active triamterene 75 mg-hydrochlorothiazide 50 mg tablet RxNorm: 3 48103 TAKE ONE TABLET BY MOUTH DAILY 12/29/2019 No Stop Date Active Klor-Con 8 mEq tablet,extended release RxNorm: 119423 T FARRUKH ONE TABLET BY MOUTH TWICE A DAY 12/19/2019 No Stop Date Active allopurinol 300 mg tablet RxNorm: 433233 TAKE ONE TABLET BY LOPEZ TH DAILY 12/19/2019 No Stop Date Active glimepiride 2 mg tablet RxNorm: 310052 TAKE ONE TABLET BY MOUTH TWICE A DAY 12/19/2019 01/12/2020 Inactive hydrocodone 10 mg-acetaminophen 325 mg tablet RxNorm: 613640 1-2 Tablet(s) Oral three times a day as needed for pain 12/10/2019 01/11/2020 Inactive Januvia 100 mg tablet RxNorm: 951714 1 Tablet(s) Oral QD 11/20/2019 0 11/20/2019 Inactive glimepiride 2 mg tablet RxNorm: 187085 1 Tablet(s) Oral two sawyer es a day 11/20/2019 12/18/2019 Inactive cyclobenzaprine 10 mg tablet RxNorm: 307677 TAKE ONE TA BLET BY MOUTH THREE TIMES A DAY NEEDED FOR MUSCLE SPASMS 11/17/2019 01/04/2020 Inactive doxepin 25 mg capsule RxNorm: 8204088 TAKE ONE CAPSULE B Y MOUTH EVERY NIGHT AT BEDTIME NEEDED FOR SLEEP 11/16/2019 No Stop Date Active Klor-Con 8 mEq tablet,extended release RxNorm: 573744 T FARRUKH ONE TABLET BY MOUTH TWICE A DAY 11/16/2019 12/18/2019 Inactive hydrocodone 10 mg-acetaminophen 325 mg tablet RxNorm: 224281 1-2 Tablet(s) Oral three times a day as needed for pain 11/10/2019 12/09/2019 Inactive cyclobenzaprine 10 mg tablet RxNorm: 682348 TAKE ONE TA BLET BY MOUTH THREE TIMES A DAY NEEDED FOR MUSCLE SPASMS 10/23/2019 11/16/2019 Inactive duloxetine 60 mg capsule,delayed release RxNorm: 239893 1 Capsu le(s) Oral QD 10/17/2019 04/13/2020 Active celecoxib 200 mg capsule RxNorm: 781815 1 Capsule(s) Or al two times a day as needed for pain 10/17/2019 01/14/2020 Active gabapentin 300 mg capsule RxNorm: 228766 1 Capsule(s) O ral every night at bedtime 10/17/2019 01/15/2020 Active Singulair 10 mg tablet RxNorm: 939247 1 Tablet(s) Oral QD 10/17/2019 04/14/2020 Active metoprolol tartrate 100 mg tablet RxNorm: 575341 1 Tabl et(s) Oral two times a day 10/17/2019 04/13/2020 Active clonidine HCl 0.1 mg tablet RxNorm: 491194 1 Tablet(s) Oral fou r times a day 10/17/2019 04/13/2020 Active Lipitor 10 mg tablet RxNorm: 437371 1 Tablet(s) Oral QD 10/17/2019 Active Steglatro 15 mg tablet RxNorm: 3063122 1 Tablet(s) Oral QD 10/17/19 No Stop Date Active lisinopril 20 mg tablet RxNorm: 625474 1 Tablet(s) Oral QD 10/17/19 20 01/12/2020 Inactive Klor-Con 8 mEq tablet,extended release RxNorm: 591442 1 Tablet(s) Oral two times a day 10/17/2019 11/15/2019 Inactive Januvia 100 mg tablet RxNorm: 296209 1 Tablet(s) Oral QD 10/17/2019 0 01/12/2020 Inactive Glyxambi 25 mg-5 mg tablet RxNorm: 6380199 1 Tablet(s) Oral QD 01/202010/16/2019 Inactive Patient will bring in copay discount card as well Glyxambi 25 mg-5 mg tablet RxNorm: 0152273 1 Tablet(s) Oral QD 01/202010/14/2019 Inactive Patient will bring in copay discount card as well Keflex 500 mg capsule RxNorm: 726193 1 Capsule(s) Oral two time s a day 10/07/2019 10/14/2019 Inactive Premarin 1.25 mg tablet RxNorm: 016869 1 Tablet(s) Oral QD 09/30/19 20 06/25/2020 Active hydrocodone 10 mg-acetaminophen 325 mg tablet RxNorm: 666644 1-2 Tablet(s) Oral three times a day as needed for pain 09/30/2019 09/30/2019 Inactive baclofen 10 mg tablet RxNorm: 726257 TAKE ONE TABLET BY MOUTH THREE TIMES A DAY NEEDED 09/19/2019 No Stop Date Active gabapentin 300 mg capsule RxNorm: 735724 TAKE ONE CAPSU LE BY MOUTH EVERY NIGHT AT BEDTIME 09/19/2019 10/16/2019 Inactive Klor-Con 8 mEq tablet,extended release RxNorm: 362084 T FARRUKH ONE TABLET BY MOUTH TWICE A DAY 1 Tablet(s) Oral two times a day 09/19/2019 10/16/2019 Renu ctive hydrocodone 10 mg-acetaminophen 325 mg tablet RxNorm: 862272 1-2 Tablet(s) Oral three times a day as needed for pain 09/19/2019 09/29/2019 Inactive duloxetine 60 mg capsule,delayed release RxNorm: 111745 TAKE ONE CAPSULE BY MOUTH DAILY 09/11/2019 10/16/2019 Inactive Lipitor 10 mg tablet RxNorm: 072548 TAKE ONE TABLET BY MOUTH AT BEDTIME 09/11/2019 10/16/2019 Inactive lisinopril 20 mg tablet RxNorm: 397467 TAKE ONE TABLET BY MOUTH DAILY .... THIS REPLACE 10MG TABLETS 09/11/2019 10/16/2019 Inactive triamterene 75 mg-hydrochlorothiazide 50 mg tablet RxNorm: 3 02803 TAKE ONE TABLET BY MOUTH DAILY 09/11/2019 12/28/2019 Inactive allopurinol 300 mg tablet RxNorm: 692083 TAKE ONE TABLET BY LOPEZ TH DAILY 09/11/2019 12/18/2019 Inactive celecoxib 200 mg capsule RxNorm: 236374 TAKE ONE CAPSUL E BY MOUTH TWICE A DAY NEEDED FOR PAIN 09/11/2019 10/16/2019 Inactive clonidine HCl 0.1 mg tablet RxNorm: 084844 TAKE ONE TAB LET BY MOUTH FOUR TIMES A DAY 09/11/2019 10/16/2019 Inactive doxepin 25 mg capsule RxNorm: 6469215 1 Capsule(s) Oral every night at bedtime as needed for sleep 08/21/2019 11/15/2019 Inactive hydrocodone 10 mg-acetaminophen 325 mg tablet RxNorm: 570286 1-2 Tablet(s) PO TID 08/12/2019 09/29/2019 Inactive as needed for pa in - Previous quantity #240, will start dosing for #180 in April 2011 per Doctor Td. Medrol (Dustin) 4 mg tablets in a dose pack RxNorm: 652256 Tablet(s) Oral As Directed 07/21/2019 09/29/2019 Inactive Premarin 1.25 mg tablet RxNorm: 142429 1 Tablet(s) Oral QD 07/02/2009/29/2019 Inactive hydrocodone 10 mg-acetaminophen 325 mg tablet RxNorm: 431683 1-2 Tablet(s) PO TID 07/01/2019 08/11/2019 Inactive as needed for pa in - Previous quantity #240, will start dosing for #180 in April 2011 per Doctor Td. gabapentin 300 mg capsule RxNorm: 412796 1 Capsule(s) PO QHS 201809/18/2019 Inactive celecoxib 200 mg capsule RxNorm: 927800 1 Capsule(s) Or al two times a day as needed for pain 06/27/2019 06/27/2019 Inactive doxepin 25 mg capsule RxNorm: 4349774 TAKE ONE CAPSULE B Y MOUTH EVERY NIGHT AT BEDTIME NEEDED FOR SLEEP 06/24/2019 08/20/2019 Inactive Singulair 10 mg tablet RxNorm: 830926 TAKE ONE TABLET BY MOUTH JOSÉ Y 06/24/2019 10/16/2019 Inactive furosemide 40 mg tablet RxNorm: 852554 TAKE ONE TABLET BY MOUTH EVERY MORNING NEEDED FOR EDEMA . TAKE WITH POTASSIUM 06/24/2019 01/12/2020 Inactive lisinopril 20 mg tablet RxNorm: 239370 TAKE ONE TABLET BY MOUTH DAILY .... THIS REPLACE 10MG TABLETS 06/24/2019 09/10/2019 Inactive nystatin-triamcinolone 100,000 unit/g-0.1 % topical cream Rx Norm: 9263966 1 Application Topical two times a day 06/12/2019 06/19/2019 Inactive apply BID for 1 week nystatin-triamcinolone 100,000 unit/g-0.1 % topical cream Rx Norm: 1105596 1 Application Topical two times a day 06/12/2019 06/11/2019 Inactive apply BID for 1 week hydrocodone 10 mg-acetaminophen 325 mg tablet RxNorm: 718797 1-2 Tablet(s) PO QID as needed for pain MUST LAST 30 DAYS 05/28/2019 06/26/2019 Inactiv e (Response to an electronic controlled substance refill request - RxReferenceNumber: [id number]) baclofen 20 mg tablet RxNorm: 131071 1 Tablet(s) PO TID as needed for muscle spasm 05/19/2019 05/27/2019 Inactive gabapentin 300 mg capsule RxNorm: 254543 1 Capsule(s) PO QHS 201805/27/2019 Inactive lisinopril 20 mg tablet RxNorm: 610871 1 Tablet(s) PO Q D TAKE ONE TABLET BY MOUTH DAILY, REPLACES 10 MG DOSE 05/19/2019 06/23/2019 Inactive doxepin 25 mg capsule RxNorm: 0329037 TAKE ONE CAPSULE B Y MOUTH EVERY NIGHT AT BEDTIME NEEDED FOR SLEEP 05/16/2019 06/14/2019 Inactive lisinopril 20 mg tablet RxNorm: 195024 TAKE ONE TABLET BY MOUTH DAILY, REPLACES 10 MG DOSE 05/16/2019 05/18/2019 Inactive Singulair 10 mg tablet RxNorm: 249215 TAKE ONE TABLET BY MOUTH JOSÉ Y 05/16/2019 06/14/2019 Inactive gabapentin 300 mg capsule RxNorm: 012715 1 Capsule(s) PO QHS 201805/04/2019 Inactive estropipate 1.5 mg tablet RxNorm: 965843 1 Tablet(s) PO QD 05/05/2005/27/2019 Inactive estropipate 1.5 mg tablet RxNorm: 150590 1 Tablet(s) PO QD 05/05/20 19 05/04/2019 Inactive gabapentin 300 mg capsule RxNorm: 395288 1 Capsule(s) PO QHS 201805/18/2019 Inactive hydrocodone 10 mg-acetaminophen 325 mg tablet RxNorm: 648592 1-2 Tablet(s) PO QID as needed for pain MUST LAST 30 DAYS 04/25/2019 05/24/2019 Inactiv e (Response to an electronic controlled substance refill request - RxReferenceNumber: [id number]) cyclobenzaprine 10 mg tablet RxNorm: 776611 TAKE ONE TA BLET BY MOUTH THREE TIMES A DAY NEEDED FOR MUSCLE SPASMS 04/24/2019 05/18/2019 Inactive metoprolol tartrate 100 mg tablet RxNorm: 757863 TAKE O NE TABLET BY MOUTH TWICE A DAY 04/24/2019 10/16/2019 Inactive Lyrica 75 mg capsule RxNorm: 926562 1 Capsule(s) PO QHS 03/25/2019 Inactive duloxetine 60 mg capsule,delayed release RxNorm: 288527 TAKE ONE CAPSULE BY MOUTH DAILY 03/21/2019 05/19/2019 Inactive triamterene 75 mg-hydrochlorothiazide 50 mg tablet RxNorm: 3 83418 TAKE ONE TABLET BY MOUTH DAILY 03/21/2019 05/19/2019 Inactive Klor-Con 8 mEq tablet,extended release RxNorm: 838680 T FARRUKH ONE TABLET BY MOUTH TWICE A DAY 03/21/2019 09/18/2019 Inactive Lipitor 10 mg tablet RxNorm: 510623 TAKE ONE TABLET BY MOUTH AT BEDTIME 03/21/2019 09/10/2019 Inactive clonidine HCl 0.1 mg tablet RxNorm: 291136 TAKE ONE TAB LET BY MOUTH FOUR TIMES A DAY 03/21/2019 05/19/2019 Inactive allopurinol 300 mg tablet RxNorm: 944876 TAKE ONE TABLET BY LOPEZ TH DAILY 03/21/2019 05/19/2019 Inactive hydrocodone 10 mg-acetaminophen 325 mg tablet RxNorm: 650792 1-2 Tablet(s) PO QID as needed for pain MUST LAST 30 DAYS 02/28/2019 03/29/2019 Inactiv e (Response to an electronic controlled substance refill request - RxReferenceNumber: [id number]) furosemide 40 mg tablet RxNorm: 134423 TAKE ONE TABLET BY MOUTH EVERY MORNING NEEDED FOR EDEMA . TAKE WITH POTASSIUM 02/21/2019 03/22/2019 Inactive cyclobenzaprine 10 mg tablet RxNorm: 217349 TAKE ONE TA BLET BY MOUTH THREE TIMES A DAY NEEDED FOR MUSCLE SPASMS 02/21/2019 04/21/2019 Inactive lisinopril 20 mg tablet RxNorm: 354717 TAKE ONE TABLET BY MOUTH DAILY, REPLACES 10 MG DOSE 02/21/2019 05/15/2019 Inactive doxepin 25 mg capsule RxNorm: 0263070 TAKE ONE CAPSULE B Y MOUTH EVERY NIGHT AT BEDTIME NEEDED FOR SLEEP 02/21/2019 05/15/2019 Inactive nystatin 100,000 unit/gram topical cream RxNorm: 481148 APPLY TO AFFECTED AREA(S) TWO TIMES A DAY 02/21/2019 03/22/2019 Inactive estradiol 1 mg tablet RxNorm: 773743 2 Tablet(s) PO QD replaces premarin 01/22/2019 05/04/2019 Inactive lisinopril 20 mg tablet RxNorm: 732394 TAKE ONE TABLET BY MOUTH DAILY, REPLACES 10 MG DOSE 01/20/2019 02/18/2019 Inactive cyclobenzaprine 10 mg tablet RxNorm: 278385 TAKE ONE TA BLET BY MOUTH THREE TIMES A DAY NEEDED FOR MUSCLE SPASMS 01/20/2019 02/18/2019 Inactive metoprolol tartrate 100 mg tablet RxNorm: 466336 TAKE O NE TABLET BY MOUTH TWICE A DAY 01/20/2019 02/18/2019 Inactive cyclobenzaprine 10 mg tablet RxNorm: 435084 TAKE ONE TA BLET BY MOUTH THREE TIMES A DAY NEEDED FOR MUSCLE SPASMS 12/19/2018 01/17/2019 Inactive lisinopril 20 mg tablet RxNorm: 586268 TAKE ONE TABLET BY MOUTH DAILY, REPLACES 10 MG DOSE 12/19/2018 01/17/2019 Inactive duloxetine 60 mg capsule,delayed release RxNorm: 922205 TAKE ONE CAPSULE BY MOUTH DAILY 12/19/2018 01/17/2019 Inactive Lipitor 10 mg tablet RxNorm: 773309 TAKE ONE TABLET BY MOUTH AT BEDTIME 12/19/2018 01/17/2019 Inactive cyclobenzaprine 10 mg tablet RxNorm: 537238 1 Tablet(s) PO TID as needed for muscle spasm 11/19/2018 12/18/2018 Inactive Singulair 10 mg tablet RxNorm: 219154 1 Tablet(s) PO QD 11/19/2018 Inactive lisinopril 20 mg tablet RxNorm: 968969 TAKE ONE TABLET BY MOUTH DAILY, REPLACES 10 MG DOSE 11/15/2018 12/18/2018 Inactive hydrocodone 10 mg-acetaminophen 325 mg tablet RxNorm: 559471 1-2 Tablet(s) PO QID as needed for pain MUST LAST 30 DAYS 11/13/2018 12/12/2018 Inactiv e (Response to an electronic controlled substance refill request - RxReferenceNumber: [id number]) nystatin 100,000 unit/gram topical cream RxNorm: 629479 APPLY TO AFFECTED AREA(S) TWO TIMES A DAY 10/23/2018 11/06/2018 Inactive lisinopril 20 mg tablet RxNorm: 454136 1 Tablet(s) PO QD replac es 10mg dose 10/18/2018 11/14/2018 Inactive hydrocodone 10 mg-acetaminophen 325 mg tablet RxNorm: 166325 1-2 Tablet(s) QID as needed for pain MUST LAST 30 DAYS 10/08/2018 11/06/2018 Inactive (Response to an electronic controlled substance refill request - RxReferenceNumber: [id number]) lisinopril 10 mg tablet RxNorm: 246813 1 Tablet(s) PO QD 10/03/2018 0 01/21/2019 Inactive Celebrex 200 mg capsule RxNorm: 858391 TAKE ONE CAPSULE BY MOUT H TWICE A DAY 09/30/2018 05/04/2019 Inactive cyclobenzaprine 10 mg tablet RxNorm: 460568 TAKE ONE TA BLET BY MOUTH THREE TIMES A DAY NEEDED FOR MUSCLE SPASMS 09/30/2018 11/18/2018 Inactive doxepin 25 mg capsule RxNorm: 2641851 TAKE ONE CAPSULE B Y MOUTH EVERY NIGHT AT BEDTIME NEEDED 09/05/2018 10/16/2018 Inactive omeprazole 40 mg capsule,delayed release RxNorm: 490855 TAKE ONE CAPSULE BY MOUTH DAILY 09/05/2018 01/21/2019 Inactive furosemide 40 mg tablet RxNorm: 738423 TAKE ONE TABLET BY MOUTH EVERY MORNING NEEDED FOR EDEMA . TAKE WITH POTASSIUM 09/05/2018 11/03/2018 Inactive phentermine 37.5 mg tablet RxNorm: 904765 1 Tablet(s) PO QAM 201701/21/2019 Inactive doxepin 25 mg capsule RxNorm: 9220048 1 Capsule(s) PO QH S as needed for sleep TAKE ONE CAPSULE BY MOUTH EVERY NIGHT AT BEDTIME NEEDED 08/27/2018 09/04/2018 Inactive Keflex 500 mg capsule RxNorm: 719564 1 Capsule(s) PO TID 08/09/2018 1 10/19/2017 Inactive Diflucan 100 mg tablet RxNorm: 891013 1 Tablet(s) PO QD 08/09/2018 Inactive Premarin 1.25 mg tablet RxNorm: 985339 2 Tablet(s) PO QD 08/09/2018 0 05/04/2019 Inactive Zofran ODT 4 mg disintegrating tablet RxNorm: 339798 1 Tablet(s) PO Q4H as needed for nausea 08/09/2018 01/21/2019 Inactive metoprolol tartrate 100 mg tablet RxNorm: 073838 TAKE O NE TABLET BY MOUTH TWICE A DAY 2018 10/04/2018 Inactive doxepin 25 mg capsule RxNorm: 3173239 TAKE ONE CAPSULE B Y MOUTH EVERY NIGHT AT BEDTIME NEEDED 2018 08/26/2018 Inactive cyclobenzaprine 10 mg tablet RxNorm: 789971 TAKE ONE TA BLET BY MOUTH THREE TIMES A DAY NEEDED FOR MUSCLE SPASMS 2018 09/29/2018 Inactive hydrocodone 10 mg-acetaminophen 325 mg tablet RxNorm: 385257 1-2 Tablet(s) QID as needed for pain MUST LAST 30 DAYS 07/29/2018 08/27/2018 Inactive (Response to an electronic controlled substance refill request - RxReferenceNumber: [id number]) nystatin 100,000 unit/gram topical powder RxNorm: 708492 Applic ation TOP BID 07/22/2018 08/04/2018 Inactive doxepin 25 mg capsule RxNorm: 8916587 1 Capsule(s) PO QHS as needed 07/22/2018 08/05/2018 Inactive triamterene 75 mg-hydrochlorothiazide 50 mg tablet RxNorm: 3 95665 TAKE ONE TABLET BY MOUTH DAILY 07/05/2018 10/02/2018 Inactive duloxetine 60 mg capsule,delayed release RxNorm: 742331 TAKE ONE CAPSULE BY MOUTH DAILY 07/05/2018 09/02/2018 Inactive Klor-Con 8 mEq tablet,extended release RxNorm: 141054 T FARRUKH ONE TABLET BY MOUTH TWICE A DAY 07/05/2018 10/02/2018 Inactive Lipitor 10 mg tablet RxNorm: 568630 TAKE ONE TABLET BY MOUTH AT BEDTIME 07/05/2018 09/02/2018 Inactive allopurinol 300 mg tablet RxNorm: 781271 TAKE ONE TABLET BY LOPEZ TH DAILY 07/05/2018 10/02/2018 Inactive clonidine HCl 0.1 mg tablet RxNorm: 359536 TAKE ONE TAB LET BY MOUTH FOUR TIMES A DAY 07/05/2018 10/02/2018 Inactive hydrocodone 10 mg-acetaminophen 325 mg tablet RxNorm: 987145 1-2 Tablet(s) QID as needed for pain MUST LAST 30 DAYS 06/28/2018 07/27/2018 Inactive (Response to an electronic controlled substance refill request - RxReferenceNumber: [id number]) MediHoney (calcium alginate-honey) 4" X 5" bandage RxNorm: 1 Application TOP QD 06/17/2018 06/26/2018 Inactive honey-hydrocolloid dressing 4" X 5" RxNorm: 1 Application TOP QD 06/17/2018 07/16/2018 Inactive furosemide 40 mg tablet RxNorm: 238268 TAKE ONE TABLET BY MOUTH EVERY MORNING NEEDED FOR EDEMA . TAKE WITH POTASSIUM 06/10/2018 07/09/2018 Inactive This is a refill request. hydrocodone 10 mg-acetaminophen 325 mg tablet RxNorm: 987428 1-2 Tablet(s) QID as needed for pain MUST LAST 30 DAYS 05/30/2018 06/27/2018 Inactive (Response to an electronic controlled substance refill request - RxReferenceNumber: [id number]) acyclovir 800 mg tablet RxNorm: 126647 1 Tablet(s) PO 5x day 201705/22/2018 Inactive Premarin 1.25 mg tablet RxNorm: 459631 1-2 Tablet(s) PO QD 05/15/20 18 07/13/2018 Inactive cyclobenzaprine 10 mg tablet RxNorm: 864494 1 Tablet(s) PO TID as needed for muscle spasm 05/09/2018 05/08/2018 Inactive Medrol (Dustin) 4 mg tablets in a dose pack RxNorm: 225926 Tablet(s) PO As Directed 05/02/2018 06/16/2018 Inactive hydrocodone 10 mg-acetaminophen 325 mg tablet RxNorm: 390451 1-2 Tablet(s) QID as needed for pain MUST LAST 30 DAYS 04/30/2018 05/29/2018 Inactive (Response to an electronic controlled substance refill request - RxReferenceNumber: [id number]) duloxetine 60 mg capsule,delayed release RxNorm: 000243 TAKE ONE CAPSULE BY MOUTH DAILY 04/16/2018 05/15/2018 Inactive Celebrex 200 mg capsule RxNorm: 825981 TAKE ONE CAPSULE BY MOUT H TWICE A DAY 04/16/2018 06/14/2018 Inactive Singulair 10 mg tablet RxNorm: 431370 TAKE ONE TABLET BY MOUTH JOSÉ Y 04/16/2018 11/19/2018 Inactive Lipitor 10 mg tablet RxNorm: 852848 TAKE ONE TABLET BY MOUTH AT BEDTIME 04/16/2018 05/15/2018 Inactive hydrocodone 10 mg-acetaminophen 325 mg tablet RxNorm: 203612 1-2 Tablet(s) QID as needed for pain MUST LAST 30 DAYS 03/29/2018 04/27/2018 Inactive (Response to an electronic controlled substance refill request - RxReferenceNumber: [id number]) cyclobenzaprine 10 mg tablet RxNorm: 905866 1 Tablet(s) PO TID as needed for muscle spasm 03/18/2018 05/09/2018 Inactive omeprazole 40 mg capsule,delayed release RxNorm: 833450 1 Capsu le(s) PO QD 02/26/2018 08/24/2018 Inactive hydrocodone 10 mg-acetaminophen 325 mg tablet RxNorm: 418305 1-2 Tablet(s) QID as needed for pain MUST LAST 30 DAYS 02/26/2018 03/27/2018 Inactive (Response to an electronic controlled substance refill request - RxReferenceNumber: [id number]) metoprolol tartrate 100 mg tablet RxNorm: 187262 1 Tablet(s) PO BID 02/18/2018 08/05/2018 Inactive Lyrica 75 mg capsule RxNorm: 814607 1 Capsule(s) PO QHS 01/30/2018 Inactive phentermine 37.5 mg tablet RxNorm: 002898 1 Tablet(s) PO QAM 201706/16/2018 Inactive hydrocodone 10 mg-acetaminophen 325 mg tablet RxNorm: 763364 1-2 Tablet(s) QID as needed for pain MUST LAST 30 DAYS 01/29/2018 02/25/2018 Inactive (Response to an electronic controlled substance refill request - RxReferenceNumber: [id number]) Klor-Con 8 mEq tablet,extended release RxNorm: 257722 1 Tablet( s) PO BID 01/14/2018 07/04/2018 Inactive allopurinol 300 mg tablet RxNorm: 424571 1 Tablet(s) PO QD 01/15/2007/04/2018 Inactive Lipitor 10 mg tablet RxNorm: 720023 1 Tablet(s) PO QHS 01/14/201812/2017 Inactive triamterene 75 mg-hydrochlorothiazide 50 mg tablet RxNorm: 3 59543 1 Tablet(s) PO QD 01/14/2018 07/04/2018 Inactive hydrocodone 10 mg-acetaminophen 325 mg tablet RxNorm: 849810 1-2 Tablet(s) QID as needed for pain MUST LAST 30 DAYS 12/27/2017 01/25/2018 Inactive (Response to an electronic controlled substance refill request - RxReferenceNumber: [id number]) Onglyza 5 mg tablet RxNorm: 633605 1 Tablet(s) PO QD 12/18/201701/29 Inactive metformin 500 mg tablet RxNorm: 977475 1 Tablet(s) PO BID 12/11/2017 12/10/2017 Inactive metformin 500 mg tablet RxNorm: 599004 1 Tablet(s) PO BID 12/11/2017 12/17/2017 Inactive furosemide 40 mg tablet RxNorm: 832098 1 Tablet(s) PO Q AM prn edema--take with potassium 12/11/2017 06/08/2018 Inactive cyclobenzaprine 10 mg tablet RxNorm: 721503 1 Tablet(s) PO TID as needed for muscle spasm 12/11/2017 03/18/2018 Inactive hydrocodone 10 mg-acetaminophen 325 mg tablet RxNorm: 289378 1-2 Tablet(s) QID as needed for pain MUST LAST 30 DAYS 10/23/2017 11/21/2017 Inactive (Response to an electronic controlled substance refill request - RxReferenceNumber: [id number]) Lipitor 10 mg tablet RxNorm: 639677 1 Tablet(s) PO QHS 10/16/201703/2018 Inactive cyclobenzaprine 10 mg tablet RxNorm: 703604 1 Tablet(s) PO TID as needed for muscle spasm 10/09/2017 12/10/2017 Inactive hydroxyzine HCl 25 mg tablet RxNorm: 109210 1 Tablet(s) PO BID as needed for anxiety 09/20/2017 01/29/2018 Inactive Effexor XR 75 mg capsule,extended release RxNorm: 511770 1 Caps ule(s) PO QD 09/20/2017 01/29/2018 Inactive metoprolol tartrate 100 mg tablet RxNorm: 673552 1 Tablet(s) PO BID 08/20/2017 02/18/2018 Inactive baclofen 20 mg tablet RxNorm: 481650 1 Tablet(s) PO TID as needed for muscle spasm 08/20/2017 01/21/2019 Inactive clonidine HCl 0.1 mg tablet RxNorm: 319697 1 Tablet(s) PO QID 08/2005/16/2018 Inactive Seroquel 25 mg tablet RxNorm: 827338 1 Tablet(s) PO QHS 08/17/2017 Inactive Seroquel 25 mg tablet RxNorm: 605709 1 Tablet(s) PO QHS 08/17/2017 Inactive Diflucan 100 mg tablet RxNorm: 752115 TAKE ONE TABLET BY MOUTH JOSÉ Y 07/25/2017 08/07/2017 Inactive hydrocodone 10 mg-acetaminophen 325 mg tablet RxNorm: 453584 1-2 Tablet(s) QID as needed for pain MUST LAST 30 DAYS 07/19/2017 08/17/2017 Inactive (Response to an electronic controlled substance refill request - RxReferenceNumber: [id number]) clindamycin 300 mg capsule RxNorm: 316954 1 Capsule(s) PO TID 07/1907/28/2017 Inactive clotrimazole-betamethasone 1 %-0.05 % topical cream RxNorm: 927601 Application TOP BID to elbow rash 07/19/2017 06/16/2018 Inactive Singulair 10 mg tablet RxNorm: 496662 Tablet(s) TAKE ONE TABLET BY MOUTH DAILY 07/18/2017 04/13/2018 Inactive triamterene 75 mg-hydrochlorothiazide 50 mg tablet RxNorm: 3 36428 1 Tablet(s) PO QD 07/18/2017 01/14/2018 Inactive Celebrex 200 mg capsule RxNorm: 692041 Capsule(s) TAKE ONE CAPSULE BY MOUTH TWICE A DAY 07/18/2017 10/15/2017 Inactive hydrocodone 10 mg-acetaminophen 325 mg tablet RxNorm: 441541 1-2 Tablet(s) QID as needed for pain MUST LAST 30 DAYS 06/19/2017 07/18/2017 Inactive (Response to an electronic controlled substance refill request - RxReferenceNumber: [id number]) hydrocodone 10 mg-acetaminophen 325 mg tablet RxNorm: 506669 1-2 Tablet(s) QID as needed for pain MUST LAST 30 DAYS 06/19/2017 06/18/2017 Inactive (Response to an electronic controlled substance refill request - RxReferenceNumber: [id number]) baclofen 20 mg tablet RxNorm: 378593 1 Tablet(s) PO TID as needed for muscle spasm 06/18/2017 08/20/2017 Inactive Medrol (Dustin) 4 mg tablets in a dose pack RxNorm: 520691 Tablet(s) PO As Directed 06/05/2017 07/18/2017 Inactive omeprazole 40 mg capsule,delayed release RxNorm: 369861 1 Capsu le(s) PO QD 04/20/2017 10/16/2017 Inactive Premarin 1.25 mg tablet RxNorm: 133540 1-2 Tablet(s) PO QD 04/11/20 17 05/15/2018 Inactive duloxetine 60 mg capsule,delayed release RxNorm: 524887 1 Capsu le(s) PO QD 04/11/2017 09/19/2017 Inactive furosemide 40 mg tablet RxNorm: 567402 1 Tablet(s) PO Q AM prn edema--take with potassium 04/11/2017 12/11/2017 Inactive Klor-Con 8 mEq tablet,extended release RxNorm: 258615 1 Tablet( s) PO BID 04/11/2017 01/14/2018 Inactive Lipitor 10 mg tablet RxNorm: 654396 1 Tablet(s) PO QHS 04/11/201702/2018 Inactive amlodipine 5 mg-benazepril 20 mg capsule RxNorm: 650785 1 Capsu le(s) PO QD 04/11/2017 01/29/2018 Inactive allopurinol 300 mg tablet RxNorm: 771210 1 Tablet(s) PO QD 04/11/20 17 01/14/2018 Inactive clonidine HCl 0.1 mg tablet RxNorm: 298924 1 Tablet(s) PO QID 04/0508/19/2017 Inactive baclofen 20 mg tablet RxNorm: 762502 1 Tablet(s) PO TID as needed for muscle spasm 04/02/2017 06/18/2017 Inactive Premarin 1.25 mg tablet RxNorm: 244113 1-2 Tablet(s) PO QD 03/20/20 17 04/10/2017 Inactive hydrocodone 10 mg-acetaminophen 325 mg tablet RxNorm: 286023 1-2 Tablet(s) QID as needed for pain MUST LAST 30 DAYS 03/14/2017 01/21/2019 Inactive (Response to an electronic controlled substance refill request - RxReferenceNumber: [id number]) metoprolol tartrate 100 mg tablet RxNorm: 157501 1 Tablet(s) PO BID 02/12/2017 08/20/2017 Inactive hydrocodone 10 mg-acetaminophen 325 mg tablet RxNorm: 991503 1-2 Tablet(s) QID as needed for pain MUST LAST 30 DAYS 02/08/2017 03/09/2017 Inactive (Response to an electronic controlled substance refill request [id number] metoprolol tartrate 100 mg tablet RxNorm: 255329 TAKE O NE TABLET BY MOUTH TWICE A DAY 01/11/2017 02/12/2017 Inactive metoprolol tartrate 100 mg tablet RxNorm: 410310 1 Tablet(s) PO BID 12/18/2016 12/17/2016 Inactive metoprolol tartrate 100 mg tablet RxNorm: 231333 1 Tablet(s) PO BID 12/18/2016 01/10/2017 Inactive furosemide 40 mg tablet RxNorm: 679796 1 Tablet(s) PO Q AM prn edema--take with potassium 12/13/2016 02/10/2017 Inactive amitriptyline 100 mg tablet RxNorm: 381232 1 Tablet(s) PO QHS 11/2812/12/2016 Inactive baclofen 20 mg tablet RxNorm: 796367 1 Tablet(s) PO TID as needed for muscle spasm 11/14/2016 04/01/2017 Inactive triamterene 75 mg-hydrochlorothiazide 50 mg tablet RxNorm: 3 07775 1 Tablet(s) PO QD 11/14/2016 11/13/2016 Inactive metolazone 2.5 mg tablet RxNorm: 136183 TAKE ONE TABLET BY MOUTH DAILY NEEDED FOR EDEMA 11/14/2016 12/12/2016 Inactive triamterene 75 mg-hydrochlorothiazide 50 mg tablet RxNorm: 3 70551 1 Tablet(s) PO QD 11/14/2016 07/18/2017 Inactive amitriptyline 50 mg tablet RxNorm: 967840 TAKE ONE TABL ET BY MOUTH AT BEDTIME NEEDED FOR SLEEP 11/14/2016 11/27/2016 Inactive Cymbalta 60 mg capsule,delayed release RxNorm: 624055 1 Capsule (s) PO QHS 11/14/2016 12/12/2016 Inactive clonidine HCl 0.1 mg tablet RxNorm: 808137 1 Tablet(s) PO QID 11/1304/04/2017 Inactive amitriptyline 50 mg tablet RxNorm: 324035 1 Tablet(s) P O QHS as needed for sleep 11/01/2016 11/27/2016 Inactive duloxetine 60 mg capsule,delayed release RxNorm: 235134 TAKE ONE CAPSULE BY MOUTH DAILY 10/20/2016 01/17/2017 Inactive allopurinol 300 mg tablet RxNorm: 803000 TAKE ONE TABLET BY LOPEZ TH DAILY 10/20/2016 01/16/2017 Inactive Lyrica 75 mg capsule RxNorm: 686361 TAKE ONE CAPSULE BY MOUTH EVERY NIGHT AT BEDTIME 10/20/2016 12/10/2016 Inactive Klor-Con 8 mEq tablet,extended release RxNorm: 942332 T FARRUKH ONE TABLET BY MOUTH TWICE A DAY 10/20/2016 01/17/2017 Inactive Celebrex 200 mg capsule RxNorm: 956717 TAKE ONE CAPSULE BY MOUT H TWICE A DAY 10/20/2016 07/18/2017 Inactive Bystolic 10 mg tablet RxNorm: 519364 TAKE ONE TABLET BY MOUTH EVERY NIGHT AT BEDTIME 10/20/2016 12/17/2016 Inactive amlodipine 5 mg-benazepril 20 mg capsule RxNorm: 002793 TAKE ONE CAPSULE BY MOUTH EVERY NIGHT AT BEDTIME -- TO REPLACE AMLODOPINE 10/20/20162016 Inactive Lipitor 10 mg tablet RxNorm: 538008 TAKE ONE TABLET BY MOUTH EVERY NIGHT AT BEDTIME 10/20/2016 01/17/2017 Inactive alprazolam 0.5 mg tablet RxNorm: 185437 3 Tablet(s) PO QHS as needed for sleep/anxiety 09/20/2016 10/31/2016 Inactive Tamiflu 75 mg capsule RxNorm: 687779 1 Capsule(s) PO QD 09/19/2016 Inactive Lyrica 75 mg capsule RxNorm: 476120 1 Capsule(s) PO QHS 09/19/2016 Inactive prednisone 20 mg tablet RxNorm: 448386 1 Tablet(s) PO QD 08/10/2016 1 10/17/2015 Inactive doxycycline hyclate 100 mg capsule RxNorm: 1512046 1 Capsule(s) PO BID 08/10/2016 08/19/2016 Inactive Medrol (Dustin) 4 mg tablets in a dose pack RxNorm: 666100 Tablet(s) PO As Directed 07/31/2016 08/22/2016 Inactive Singulair 10 mg tablet RxNorm: 122124 TAKE ONE TABLET BY MOUTH JOSÉ Y 07/27/2016 07/18/2017 Inactive hydrocodone 10 mg-acetaminophen 325 mg tablet RxNorm: 484588 1-2 Tablet(s) QID as needed for pain MUST LAST 30 DAYS 07/26/2016 08/24/2016 Inactive (Response to an electronic controlled substance refill request - RxReferenceNumber: [id number]) alprazolam 0.5 mg tablet RxNorm: 584471 3 Tablet(s) PO QHS as needed for anxiety or sleep 07/26/2016 09/20/2016 Inactive clindamycin 300 mg capsule RxNorm: 307323 1 Capsule(s) PO TID 07/2007/29/2016 Inactive Diflucan 100 mg tablet RxNorm: 964980 1 Tablet(s) PO QD 07/20/2016 Inactive Levaquin 500 mg tablet RxNorm: 622919 1 Tablet(s) PO QD 07/17/2016 Inactive Levaquin 500 mg tablet RxNorm: 315312 1 Tablet(s) PO QD 07/10/2016 Inactive Levaquin 500 mg tablet RxNorm: 872230 1 Tablet(s) PO QD 07/10/2016 Inactive mupirocin 2 % topical ointment RxNorm: 215206 TOP Apply topically to affected areas twice daily 07/06/2016 09/18/2016 Inactive Singulair 10 mg tablet RxNorm: 396154 TAKE ONE TABLET BY MOUTH JOSÉ Y 06/21/2016 01/21/2019 Inactive alprazolam 0.5 mg tablet RxNorm: 645583 TAKE THREE TABL ETS BY MOUTH AT BEDTIME NEEDED FOR SLEEP OR STRESS 05/22/2016 06/20/2016 Inactive triamterene 75 mg-hydrochlorothiazide 50 mg tablet RxNorm: 3 09675 1 Tablet(s) PO QD 04/26/2016 01/12/2020 Inactive Premarin 1.25 mg tablet RxNorm: 302584 1-2 Tablet(s) PO QD 04/26/20 16 03/20/2017 Inactive Klor-Con 8 mEq tablet,extended release RxNorm: 528727 1 Tablet( s) PO BID 04/26/2016 10/19/2016 Inactive Celebrex 200 mg capsule RxNorm: 033053 1 Capsule(s) PO BID TAKE ONE CAPSULE BY MOUTH EVERY DAY 04/26/2016 10/19/2016 Inactive Lipitor 10 mg tablet RxNorm: 843393 1 Tablet(s) PO QHS 04/26/201605/2017 Inactive allopurinol 300 mg tablet RxNorm: 826076 1 Tablet(s) PO QD TAKE ONE TABLET BY MOUTH EVERY DAY 04/26/2016 10/19/2016 Inactive amlodipine 5 mg-benazepril 20 mg capsule RxNorm: 337589 1 Capsule(s) PO QHS replaces amlodopine 04/26/2016 10/19/2016 Inactive duloxetine 60 mg capsule,delayed release RxNorm: 915332 1 Capsu le(s) PO QD 04/26/2016 10/19/2016 Inactive Bystolic 10 mg tablet RxNorm: 837562 1 Tablet(s) PO QHS 04/26/2016 Inactive Singulair 10 mg tablet RxNorm: 173472 1 Tablet(s) PO QD TAKE ONE TABLET BY MOUTH DAILY 04/26/2016 06/20/2016 Inactive clonidine HCl 0.1 mg tablet RxNorm: 444540 1 Tablet(s) PO QID 04/2610/22/2016 Inactive hydrocodone 10 mg-acetaminophen 325 mg tablet RxNorm: 398017 1-2 Tablet(s) QID as needed for pain TAKE ONE TO TWO TABLETS BY MOUTH FOUR TIMES A DAY . MUST LAST 30 DAYS 03/31/2016 04/29/2016 Inactive (Response to an electronic controlled substance refill request - RxReferenceNumber: [id number]) Klor-Con 8 mEq tablet,extended release RxNorm: 606751 T FARRUKH ONE TABLET BY MOUTH TWICE A DAY 03/24/2016 09/29/2019 Inactive prednisone 20 mg tablet RxNorm: 747954 1 Tablet(s) PO QD 03/09/2016 0 03/08/2016 Inactive prednisone 20 mg tablet RxNorm: 133695 1 Tablet(s) PO QD 03/09/2016 0 03/13/2016 Inactive alprazolam 0.5 mg tablet RxNorm: 657652 3 Tablet(s) PO QHS as needed for sleep/stress 03/02/2016 01/21/2019 Inactive mupirocin 2 % topical ointment RxNorm: 903394 TOP twice daily to affected areas of face and neck 02/21/2016 04/25/2016 Inactive clonidine HCl 0.1 mg tablet RxNorm: 721026 TAKE ONE TAB LET BY MOUTH FOUR TIMES A DAY 02/15/2016 09/29/2019 Inactive clonidine HCl 0.1 mg tablet RxNorm: 216318 1 Tablet(s) PO QID 02/1404/25/2016 Inactive Premarin 1.25 mg tablet RxNorm: 699124 1-2 Tablet(s) PO QD 02/15/20 16 03/15/2016 Inactive Klor-Con 8 mEq tablet,extended release RxNorm: 838156 T FARRUKH ONE TABLET BY MOUTH TWICE A DAY 02/15/2016 03/15/2016 Inactive potassium chloride ER 20 mEq tablet,extended release(part/cr yst) RxNorm: 237549 2 Tablet(s) PO BID 02/15/2016 03/15/2016 Inactive Macrobid 100 mg capsule RxNorm: 150110 1 Capsule(s) PO BID 01/24/20 16 01/30/2016 Inactive prednisone 20 mg tablet RxNorm: 149720 Take 3tabs PO QD x 2 days, then 2 tabs PO QD x 2 days, then 1 tab PO QD x 2 days, then 1/2 tab PO QDy x 2 days 12/23/2015 04/25/2016 Inactive Klor-Con 8 mEq tablet,extended release RxNorm: 917382 T FARRUKH ONE TABLET BY MOUTH TWICE A DAY 12/20/2015 02/14/2016 Inactive alprazolam 1 mg tablet RxNorm: 606188 1 1/2 Tablet(s) PO QHS 201501/23/2016 Inactive nystatin 100,000 unit/gram topical cream RxNorm: 887654 APPLY TO AFFECTED AREA(S) TWO TIMES A DAY 11/30/2015 12/14/2015 Inactive Singulair 10 mg tablet RxNorm: 085219 TAKE ONE TABLET BY MOUTH JOSÉ Y 11/18/2015 04/25/2016 Inactive allopurinol 300 mg tablet RxNorm: 413063 1 Tablet(s) PO QD TAKE ONE TABLET BY MOUTH EVERY DAY 10/26/2015 04/22/2016 Inactive Singulair 10 mg tablet RxNorm: 931687 TAKE ONE TABLET BY MOUTH JOSÉ Y 10/26/2015 11/17/2015 Inactive duloxetine 60 mg capsule,delayed release RxNorm: 706487 1 Capsu le(s) PO QD 10/26/2015 04/22/2016 Inactive triamterene 75 mg-hydrochlorothiazide 50 mg tablet RxNorm: 3 15758 1 Tablet(s) PO QD 10/26/2015 11/14/2016 Inactive potassium chloride ER 20 mEq tablet,extended release(part/cr yst) RxNorm: 622604 2 Tablet(s) PO BID 10/26/2015 02/14/2016 Inactive Lipitor 10 mg tablet RxNorm: 967399 1 Tablet(s) PO QHS 10/26/2015 Inactive amlodipine 5 mg-benazepril 20 mg capsule RxNorm: 775027 1 Capsule(s) PO QHS replaces amlodopine 10/26/2015 04/22/2016 Inactive Bystolic 10 mg tablet RxNorm: 834744 1 Tablet(s) PO QHS 10/26/2015 Inactive amlodipine 5 mg-benazepril 20 mg capsule RxNorm: 411424 1 Capsule(s) PO QHS replaces amlodopine 10/06/2015 10/25/2015 Inactive amlodipine 5 mg tablet RxNorm: 854274 1 Tablet(s) PO QHS 09/30/2015 0 04/25/2016 Inactive metolazone 2.5 mg tablet RxNorm: 154805 TAKE ONE TABLET BY MOUTH DAILY NEEDED FOR EDEMA 09/30/2015 01/21/2019 Inactive duloxetine 60 mg capsule,delayed release RxNorm: 080654 1 Capsu le(s) PO QD 09/30/2015 10/25/2015 Inactive cephalexin 500 mg capsule RxNorm: 544287 1 Capsule(s) PO BID 201509/23/2015 Inactive mupirocin 2 % topical ointment RxNorm: 065613 TOP twice daily to affected areas of face and neck 09/14/2015 02/20/2016 Inactive baclofen 20 mg tablet RxNorm: 057694 1 Tablet(s) PO TID as needed for muscle spasm 09/01/2015 11/14/2016 Inactive clonidine HCl 0.1 mg tablet RxNorm: 341645 1 Tablet(s) PO QID 09/0102/14/2016 Inactive alprazolam 1 mg tablet RxNorm: 585383 1 1/2 Tablet(s) PO QHS 201409/09/2015 Inactive baclofen 20 mg tablet RxNorm: 133715 1 Tablet(s) PO TID as needed for muscle spasm 07/23/2015 09/01/2015 Inactive omeprazole 40 mg capsule,delayed release RxNorm: 183365 1 Capsu le(s) PO QD 07/23/2015 04/25/2016 Inactive alprazolam 1 mg tablet RxNorm: 255428 1 1/2 Tablet(s) PO QHS 201408/10/2015 Inactive Bystolic 10 mg tablet RxNorm: 794598 1 Tablet(s) PO BID 06/24/2015 Inactive allopurinol 300 mg tablet RxNorm: 340442 1 Tablet(s) PO QD TAKE ONE TABLET BY MOUTH EVERY DAY 06/23/2015 10/20/2015 Inactive alprazolam 1 mg tablet RxNorm: 011382 1 1/2 Tablet(s) PO QHS 201407/06/2015 Inactive clonidine HCl 0.1 mg tablet RxNorm: 782729 1 Tablet(s) PO QID 06/0209/01/2015 Inactive clonidine HCl 0.1 mg tablet RxNorm: 979694 1 Tablet(s) PO QID 06/0206/01/2015 Inactive Cymbalta 60 mg capsule,delayed release RxNorm: 632976 1 Capsule (s) PO QHS 06/02/2015 08/30/2015 Inactive Cymbalta 60 mg capsule,delayed release RxNorm: 664434 1 Capsule (s) PO QHS 06/02/2015 06/01/2015 Inactive clonidine HCl 0.1 mg tablet RxNorm: 398784 1 Tablet(s) PO TID 05/3106/01/2015 Inactive replaces 0.2mg dose metolazone 2.5 mg tablet RxNorm: 059877 TAKE ONE TABLET BY MOUTH DAILY NEEDED FOR EDEMA 05/21/2015 06/19/2015 Inactive Singulair 10 mg tablet RxNorm: 157004 TAKE ONE TABLET BY MOUTH JOSÉ Y 05/21/2015 10/17/2015 Inactive Cymbalta 30 mg capsule,delayed release RxNorm: 592138 1 Capsule (s) PO QHS 05/20/2015 11/14/2016 Inactive betamethasone valerate 0.1 % topical cream RxNorm: 239077 Appli cation TOP BID 05/10/2015 04/25/2016 Inactive Bactroban 2 % topical ointment RxNorm: 817889 Application TOP BID 0 05/10/2015 06/20/2015 Inactive baclofen 20 mg tablet RxNorm: 152267 1 Tablet(s) PO TID as needed 0 04/26/2015 07/23/2015 Inactive Lipitor 10 mg tablet RxNorm: 557219 1 Tablet(s) PO QHS 04/26/201508/2016 Inactive clonidine HCl 0.1 mg tablet RxNorm: 702643 1 Tablet(s) PO TID 04/2605/30/2015 Inactive replaces 0.2mg dose Klor-Con 8 mEq tablet,extended release RxNorm: 216867 1 Tablet( s) PO BID 04/26/2015 04/25/2016 Inactive metolazone 2.5 mg tablet RxNorm: 910046 1 Tablet(s) PO QD as ne eded for edema 04/26/2015 04/25/2015 Inactive triamterene 75 mg-hydrochlorothiazide 50 mg tablet RxNorm: 3 12247 1 Tablet(s) PO QD 04/26/2015 10/22/2015 Inactive Premarin 1.25 mg tablet RxNorm: 457745 1-2 Tablet(s) PO QD 04/26/20 15 10/22/2015 Inactive Bystolic 10 mg tablet RxNorm: 132801 1 Tablet(s) PO QAM TAKE ONE TABLET BY MOUTH EVERY MORNING 04/23/2015 06/23/2015 Inactive clonidine HCl 0.1 mg tablet RxNorm: 743129 1 Tablet(s) PO TID 03/2304/25/2015 Inactive replaces 0.2mg dose nystatin 100,000 unit/gram topical cream RxNorm: 943910 Applica tion TOP BID 03/23/2015 06/20/2015 Inactive baclofen 20 mg tablet RxNorm: 419178 1 Tablet(s) PO TID as needed 0 03/23/2015 04/25/2015 Inactive Premarin 1.25 mg tablet RxNorm: 796102 1-2 Tablet(s) PO QD 03/23/20 15 04/25/2015 Inactive Klor-Con 8 mEq tablet,extended release RxNorm: 375854 1 Tablet( s) PO BID 03/23/2015 04/25/2015 Inactive cefdinir 300 mg capsule RxNorm: 057199 2 Capsule(s) PO QD 03/16/2015 03/25/2015 Inactive baclofen 20 mg tablet RxNorm: 579215 1 Tablet(s) PO TID as needed 0 03/02/2015 03/22/2015 Inactive allopurinol 300 mg tablet RxNorm: 755766 1 Tablet(s) PO QD TAKE ONE TABLET BY MOUTH EVERY DAY 02/22/2015 05/22/2015 Inactive Klor-Con M20 mEq tablet,extended release RxNorm: 495493 2 Tablet(s) PO BID to use with lasix 02/22/2015 06/20/2015 Inactive clonidine HCl 0.1 mg tablet RxNorm: 162707 1 Tablet(s) PO TID 02/1903/22/2015 Inactive replaces 0.2mg dose Lipitor 10 mg tablet RxNorm: 970791 1 Tablet(s) PO QHS 01/20/201506/2015 Inactive Lipitor 10 mg tablet RxNorm: 210285 1 Tablet(s) PO QHS 01/20/2015 Inactive Singulair 10 mg tablet RxNorm: 145157 1 Tablet(s) PO QD TAKE ONE TABLET BY MOUTH EVERY DAY 11/20/2014 05/18/2015 Inactive Lipitor 10 mg tablet RxNorm: 920260 1 Tablet(s) PO QHS 11/20/201408/2015 Inactive allopurinol 300 mg tablet RxNorm: 718703 1 Tablet(s) PO QD TAKE ONE TABLET BY MOUTH EVERY DAY 11/20/2014 02/16/2015 Inactive Bystolic 10 mg tablet RxNorm: 596058 1 Tablet(s) PO QAM TAKE ONE TABLET BY MOUTH EVERY MORNING 11/20/2014 04/22/2015 Inactive Klor-Con 8 mEq tablet,extended release RxNorm: 372025 1 Tablet( s) PO BID 11/20/2014 02/17/2015 Inactive baclofen 20 mg tablet RxNorm: 441609 1 Tablet(s) PO TID as needed 0 11/20/2014 01/21/2019 Inactive baclofen 20 mg tablet RxNorm: 030773 1 Tablet(s) PO TID as needed 0 10/27/2014 11/19/2014 Inactive baclofen 20 mg tablet RxNorm: 616238 1 Tablet(s) PO TID as needed 0 10/26/2014 03/01/2015 Inactive allopurinol 300 mg tablet RxNorm: 395516 1 Tablet(s) PO QD TAKE ONE TABLET BY MOUTH EVERY DAY 10/26/2014 11/20/2014 Inactive Bystolic 10 mg tablet RxNorm: 665291 1 Tablet(s) PO QAM TAKE ONE TABLET BY MOUTH EVERY MORNING 10/26/2014 11/20/2014 Inactive clonidine HCl 0.1 mg tablet RxNorm: 043622 1 Tablet(s) PO TID 09/2805/27/2019 Inactive replaces 0.2mg dose clonidine HCl 0.1 mg tablet RxNorm: 802217 1 Tablet(s) PO TID 09/2802/18/2015 Inactive replaces 0.2mg dose baclofen 20 mg tablet RxNorm: 645036 1 Tablet(s) PO TID as needed 1 11/01/2013 08/30/2014 Inactive Lipitor 10 mg tablet RxNorm: 698609 1 Tablet(s) PO QHS 08/31/2014 Inactive baclofen 20 mg tablet RxNorm: 085894 1 Tablet(s) PO TID as needed 1 11/01/2013 10/26/2014 Inactive triamterene 75 mg-hydrochlorothiazide 50 mg tablet RxNorm: 3 27707 1 Tablet(s) PO QD 08/31/2014 02/26/2015 Inactive Klor-Con 8 mEq tablet,extended release RxNorm: 105124 1 Tablet( s) PO BID 08/31/2014 11/20/2014 Inactive baclofen 20 mg tablet RxNorm: 294374 1 Tablet(s) PO TID as needed 1 09/30/2013 10/25/2014 Inactive baclofen 20 mg tablet RxNorm: 690591 1 Tablet(s) PO TID as needed 1 09/30/2013 08/31/2014 Inactive omeprazole 40 mg capsule,delayed release RxNorm: 610223 1 Capsu le(s) PO QD 07/21/2014 07/23/2015 Inactive Flonase 50 mcg/actuation nasal spray,suspension RxNorm: 8963 23 1 [place] NASAL BID 07/15/2014 04/09/2017 Inactive hydrocodone 10 mg-acetaminophen 325 mg tablet RxNorm: 010882 1-2 Tablet(s) QID as needed for pain TAKE ONE TO TWO TABLETS BY MOUTH FOUR TIMES A DAY . MUST LAST 30 DAYS 06/30/2014 07/27/2014 Inactive (Response to an electronic controlled substance refill request [facility] [id number]) baclofen 20 mg tablet RxNorm: 314305 1 Tablet(s) PO TID as needed 1 07/31/2014 Inactive Singulair 10 mg tablet RxNorm: 402530 1 Tablet(s) PO QD TAKE ONE TABLET BY MOUTH EVERY DAY 05/25/2014 11/20/2014 Inactive Bystolic 10 mg tablet RxNorm: 234644 TAKE ONE TABLET BY MOUTH E VERY MORNING 05/25/2014 09/21/2014 Inactive allopurinol 300 mg tablet RxNorm: 644181 1 Tablet(s) PO QD TAKE ONE TABLET BY MOUTH EVERY DAY 05/25/2014 10/21/2014 Inactive baclofen 20 mg tablet RxNorm: 018728 1 Tablet(s) PO TID as needed 0 05/25/2014 06/29/2014 Inactive allopurinol 300 mg tablet RxNorm: 465399 TAKE ONE TABLET BY LOPEZ TH EVERY DAY 05/25/2014 09/21/2014 Inactive Singulair 10 mg tablet RxNorm: 096903 1 Tablet(s) PO QD TAKE ONE TABLET BY MOUTH EVERY DAY 05/25/2014 05/24/2014 Inactive Bystolic 10 mg tablet RxNorm: 335737 1 Tablet(s) PO QAM TAKE ONE TABLET BY MOUTH EVERY MORNING 05/25/2014 10/21/2014 Inactive metolazone 2.5 mg tablet RxNorm: 845981 1 Tablet(s) PO QD as ne eded for edema 05/18/2014 04/25/2015 Inactive Lasix 40 mg tablet RxNorm: 125545 1 Tablet(s) PO QAM s hould take potassium supplementation with this medication 05/14/2014 05/17/2014 Inactive hydrocodone 10 mg-acetaminophen 325 mg tablet RxNorm: 655179 1-2 Tablet(s) QID as needed for pain TAKE ONE TO TWO TABLETS BY MOUTH FOUR TIMES A DAY . MUST LAST 30 DAYS 05/07/2014 06/05/2014 Inactive (Response to an electronic controlled substance refill request - RxReferenceNumber: [id number]) alprazolam 0.5 mg tablet RxNorm: 492515 TAKE ONE TABLET BY MOUTH TWICE A DAY , MUST LAST 30 DAYS 05/07/2014 05/22/2016 Inactive (Response to a n electronic controlled substance refill request - RxReferenceNumber: [id number]) diclofenac sodium 75 mg tablet,delayed release RxNorm: 28168 6 1 Tablet(s) PO BID for pain 04/24/2014 07/20/2014 Inactive Celebrex 200 mg capsule RxNorm: 333482 TAKE ONE CAPSULE BY MOUT H EVERY DAY 04/24/2014 07/20/2014 Inactive alprazolam 0.5 mg tablet RxNorm: 681285 TAKE ONE TABLET BY MOUTH TWICE A DAY , MUST LAST 30 DAYS 03/24/2014 04/22/2014 Inactive (Response to a n electronic controlled substance refill request - RxReferenceNumber: [id number]) diclofenac sodium 75 mg tablet,delayed release RxNorm: 52274 6 1 Tablet(s) PO BID for pain 03/24/2014 04/24/2014 Inactive clonidine HCl 0.1 mg tablet RxNorm: 388312 1 Tablet(s) PO TID 03/2409/28/2014 Inactive replaces 0.2mg dose Klor-Con 8 mEq tablet,extended release RxNorm: 463537 1 Tablet( s) PO BID 02/26/2014 08/31/2014 Inactive diclofenac sodium 75 mg tablet,delayed release RxNorm: 89458 6 1 Tablet(s) PO BID for pain 02/25/2014 03/24/2014 Inactive hydrocodone 10 mg-acetaminophen 325 mg tablet RxNorm: 195133 1-2 Tablet(s) QID as needed for pain TAKE ONE TO TWO TABLETS BY MOUTH FOUR TIMES A DAY . MUST LAST 30 DAYS 02/25/2014 03/26/2014 Inactive (Response to an electronic controlled substance refill request - RxReferenceNumber: [id number]) alprazolam 0.5 mg tablet RxNorm: 635895 Tablet(s) PO BI D as needed for anxiety TAKE ONE TABLET BY MOUTH TWICE A DAY , MUST LAST 30 DAYS 02/25/2014 Inactive (Response to an electronic controlled [place] bstance refill request - RxReferenceNumber: [id number]) [AttnRPh: Saving apply/adjudicate RxGRP:SG20 RxBIN:[id number] RxPCN: ID#:[id number]] alprazolam 0.5 mg tablet RxNorm: 499350 Tablet(s) TAKE ONE TABLET BY MOUTH TWICE A DAY , MUST LAST 30 DAYS 01/27/2014 02/24/2014 Inactive (Respo nse to an electronic controlled substance refill request - RxReferenceNumber: [id number]) [AttnRPh: Saving apply/adjudicate RxGRP:SG20 RxBIN:[id number] RxPCN: ID#:[id number]] hydrocodone 10 mg-acetaminophen 325 mg tablet RxNorm: 136729 1-2 Tablet(s) QID as needed for pain TAKE ONE TO TWO TABLETS BY MOUTH FOUR TIMES A DAY . MUST LAST 30 DAYS 01/27/2014 02/24/2014 Inactive (Response to an electronic controlled substance refill request - RxReferenceNumber: [id number]) alprazolam 0.5 mg tablet RxNorm: 600609 TAKE ONE TABLET BY MOUTH TWICE A DAY , MUST LAST 30 DAYS 01/27/2014 01/26/2014 Inactive (Response to a n electronic controlled substance refill request - RxReferenceNumber: [id number]) Premarin 1.25 mg tablet RxNorm: 686125 1-2 Tablet(s) PO QD 01/28/20 14 07/25/2014 Inactive alprazolam 0.5 mg tablet RxNorm: 054478 TAKE ONE TABLET BY MOUTH TWICE A DAY , MUST LAST 30 DAYS 01/27/2014 01/27/2014 Inactive (Response to a n electronic controlled substance refill request - RxReferenceNumber: [id number]) hydrocodone 10 mg-acetaminophen 325 mg tablet RxNorm: 108847 TAKE ONE TO TWO TABLETS BY MOUTH FOUR TIMES A DAY . MUST LAST 30 DAYS 01/27/20142013 Inactive (Response to an electronic controlled [place] bstance refill request - RxReferenceNumber: [id number]) Celebrex 200 mg capsule RxNorm: 510676 1 Capsule(s) PO QD TAKE ONE CAPSULE BY MOUTH EVERY DAY 12/29/2013 04/27/2014 Inactive hydrocodone 10 mg-acetaminophen 325 mg tablet RxNorm: 780108 1-2 Tablet(s) PO QID as needed for severe pain 12/29/2013 01/27/2014 Inactive allopurinol 300 mg tablet RxNorm: 688788 1 Tablet(s) PO QD TAKE ONE TABLET BY MOUTH EVERY DAY 12/29/2013 05/24/2014 Inactive alprazolam 0.5 mg tablet RxNorm: 203281 TAKE ONE TABLET BY MOUTH TWICE A DAY , MUST LAST 30 DAYS 12/29/2013 01/27/2014 Inactive (Response to a n electronic controlled substance refill request - RxReferenceNumber: [id number]) Celebrex 200 mg capsule RxNorm: 289665 1 Capsule(s) PO QD TAKE ONE CAPSULE BY MOUTH EVERY DAY 12/29/2013 12/29/2013 Inactive Bystolic 10 mg tablet RxNorm: 459314 1 Tablet(s) PO QAM TAKE ONE TABLET BY MOUTH EVERY MORNING 12/29/2013 05/24/2014 Inactive Bystolic 10 mg tablet RxNorm: 149170 1 Tablet(s) PO QAM TAKE ONE TABLET BY MOUTH EVERY MORNING 12/29/2013 12/29/2013 Inactive Singulair 10 mg tablet RxNorm: 479518 1 Tablet(s) PO QD TAKE ONE TABLET BY MOUTH EVERY DAY 12/29/2013 05/25/2014 Inactive hydrocodone 10 mg-acetaminophen 325 mg tablet RxNorm: 894169 TAKE ONE TO TWO TABLETS BY MOUTH FOUR TIMES A DAY . MUST LAST 30 DAYS 12/29/20132013 Inactive (Response to an electronic controlled [place] bstance refill request - RxReferenceNumber: [id number]) Trazadone 75mg Tablet RxNorm: 1 Tablet(s) PO QHS as needed 03/23/2014 Inactive Trazadone 75mg Tablet RxNorm: 1 Tablet(s) PO QHS 12/24/20132014 Inactive Soma 350 mg tablet RxNorm: 198263 Tablet(s) PO TAKE ON E TABLET BY MOUTH THREE TIMES A DAY NEEDED FOR MUSCLE SPASMS. THIS MUST LAST 30 DAYS BETWEEN REFILLS. 12/10/2013 12/22/2013 Inactive (Appended: Cont rolled substance eRx refill - RxReferenceNumber: [id number]) diclofenac sodium 75 mg tablet,delayed release RxNorm: 81605 6 1 Tablet(s) PO BID for pain 12/10/2013 02/24/2014 Inactive allopurinol 300 mg tablet RxNorm: 682420 1 Tablet(s) PO QD 11/20/19 14 12/29/2013 Inactive alprazolam 0.5 mg tablet RxNorm: 775342 2 Tablet(s) PO BID 11/13/19 14 12/29/2013 Inactive prn clonidine 0.1 mg tablet RxNorm: 252859 1 Tablet(s) PO TID 11/12/2013 02/09/2014 Inactive replaces 0.2mg dose Klor-Con M20 mEq tablet,extended release RxNorm: 842953 2 Tablet(s) PO BID to use with lasix 11/12/2013 05/10/2014 Inactive Singulair 10 mg tablet RxNorm: 446888 1 Tablet(s) PO QD 11/12/2013 Inactive hydrocodone 10 mg-acetaminophen 325 mg tablet RxNorm: 829595 1-2 Tablet(s) PO QID as needed for severe pain 11/12/2013 12/28/2013 Inactive Bystolic 10 mg tablet RxNorm: 153031 1 Tablet(s) PO QAM 11/12/2013 Inactive Soma 350 mg tablet RxNorm: 896026 Tablet(s) PO TAKE ON E TABLET BY MOUTH THREE TIMES A DAY NEEDED FOR MUSCLE SPASMS. THIS MUST LAST 30 DAYS BETWEEN REFILLS. 10/13/2013 12/10/2013 Inactive (Appended: Cont rolled substance eRx refill - RxReferenceNumber: [id number]) hydrocodone 10 mg-acetaminophen 325 mg tablet RxNorm: 012915 1-2 Tablet(s) PO QID as needed for severe pain 10/03/2013 11/11/2013 Inactive diclofenac sodium 75 mg tablet,delayed release RxNorm: 64324 8 1 Tablet(s) PO BID for pain 09/11/2013 12/10/2013 Inactive alprazolam 0.5 mg tablet RxNorm: 108333 1 Tablet(s) PO BID May refill on 8/17/13 09/01/2013 10/30/2013 Inactive prn hydrocodone 10 mg-acetaminophen 325 mg tablet RxNorm: 371791 1-2 Tablet(s) PO QID as needed for severe pain 09/01/2013 10/02/2013 Inactive triamterene 75 mg-hydrochlorothiazide 50 mg tablet RxNorm: 3 51647 1 Tablet(s) PO QD 08/04/2013 08/31/2014 Inactive cyclobenzaprine 10 mg tablet RxNorm: 127334 1 Tablet(s) PO TID prn spasm 08/04/2013 08/13/2013 Inactive clonidine 0.1 mg tablet RxNorm: 748676 1 Tablet(s) PO TID 08/04/2013 11/11/2013 Inactive replaces 0.2mg dose cyclobenzaprine 10 mg tablet RxNorm: 727071 1 Tablet(s) PO TID prn spasm 07/23/2013 08/01/2013 Inactive hydrocodone 10 mg-acetaminophen 325 mg tablet RxNorm: 157054 2 1-2 Tablet(s) PO QID as needed for severe pain 06/09/2013 08/07/2013 Inactive Singulair 10 mg tablet RxNorm: 960139 1 Tablet(s) PO QD 05/29/2013 Inactive Klor-Con 8 mEq tablet,extended release RxNorm: 224221 1 Tablet( s) PO BID 05/29/2013 02/26/2014 Inactive allopurinol 300 mg tablet RxNorm: 286471 1 Tablet(s) PO QD 05/29/20 13 11/19/2013 Inactive Bystolic 10 mg tablet RxNorm: 084254 1 Tablet(s) PO QAM take one daily in the morning. 05/29/2013 11/11/2013 Inactive scopolamine 1.5 mg 72 hr Transderm Patch RxNorm: 105324 Application TD Q72H for motion sickness 05/26/2013 07/22/2013 Inactive Soma 350 mg tablet RxNorm: 509608 1 Tablet(s) PO TID as needed for spasm 05/19/2013 10/13/2013 Inactive diclofenac sodium 75 mg tablet,delayed release RxNorm: 41869 8 1 Tablet(s) PO BID for pain 05/14/2013 07/22/2013 Inactive allopurinol 300 mg tablet RxNorm: 683545 1 Tablet(s) PO QD 04/25/20 13 05/28/2013 Inactive alprazolam 0.5 mg tablet RxNorm: 965845 1 Tablet(s) PO BID May refill on 04/26/13 04/25/2013 06/23/2013 Inactive prn Celebrex 200 mg capsule RxNorm: 270023 1 Capsule(s) PO QD 04/16/2013 12/29/2013 Inactive alprazolam 0.5 mg tablet RxNorm: 588722 1 Tablet(s) PO BID May refill on 04/26/13 04/16/2013 04/24/2013 Inactive prn Soma 350 mg tablet RxNorm: 597266 1 Tablet(s) PO TID as needed for spasm 04/16/2013 No Stop Date Active Lasix 40 mg tablet RxNorm: 802821 1 Tablet(s) PO QAM s hould take potassium supplementation with this medication 04/16/2013 06/14/2013 Inactive clonidine 0.1 mg tablet RxNorm: 169345 1 Tablet(s) PO TID 04/16/2013 08/03/2013 Inactive replaces 0.2mg dose prednisone 20 mg tablet RxNorm: 425938 1 Tablet(s) PO BID 04/16/2013 04/20/2013 Inactive diclofenac sodium 75 mg tablet,delayed release RxNorm: 98421 8 1 Tablet(s) PO BID for pain 04/14/2013 05/13/2013 Inactive hydrocodone 10 mg-acetaminophen 325 mg tablet RxNorm: 266359 2 1-2 Tablet(s) PO QID as needed for severe pain 04/14/2013 No Stop Date Active Lasix 40 mg tablet RxNorm: 856244 1 Tablet(s) PO QAM s hould take potassium supplementation with this medication 03/31/2013 04/15/2013 Inactive Celebrex 200 mg capsule RxNorm: 933957 1 Capsule(s) PO QD 03/31/2013 04/15/2013 Inactive alprazolam 0.5 mg tablet RxNorm: 111167 1 Tablet(s) PO BID 03/28/20 13 04/15/2013 Inactive prn hydrocodone 10 mg-acetaminophen 325 mg tablet RxNorm: 644596 2 1-2 Tablet(s) PO QID as needed for severe pain 03/10/2013 No Stop Date Active metformin ER 500 mg 24 hr tablet,extended release RxNorm: 86 1018 1 Tablet(s) PO QD 03/06/2013 07/22/2013 Inactive clindamycin 300 mg capsule RxNorm: 622260 2 Capsule(s) PO TID 03/0503/14/2013 Inactive Zaroxolyn 2.5 mg tablet RxNorm: 021836 1 Tablet(s) PO QAM 03/05/2013 05/19/2015 Inactive amlodipine 10 mg tablet RxNorm: 706585 1 Tablet(s) PO QD 03/03/2013 0 05/25/2013 Inactive Norvasc 10 mg tablet RxNorm: 809721 1 Tablet(s) PO QD 02/28/201307/11 Inactive Celebrex 200 mg capsule RxNorm: 711382 1 Capsule(s) PO QD 02/28/2013 03/30/2013 Inactive diclofenac sodium 75 mg tablet,delayed release RxNorm: 31168 8 1 Tablet(s) PO BID for pain 02/14/2013 03/15/2013 Inactive Soma 350 mg tablet RxNorm: 408139 1 Tablet(s) PO TID as needed for spasm 02/14/2013 No Stop Date Active hydrocodone 10 mg-acetaminophen 325 mg tablet RxNorm: 152852 2 1-2 Tablet(s) PO QID as needed for severe pain 02/14/2013 No Stop Date Active Norvasc 10 mg tablet RxNorm: 773892 1 Tablet(s) PO QD 02/10/201302/09 Inactive Celebrex 200 mg capsule RxNorm: 425638 1 Capsule(s) PO QD 01/27/2013 01/26/2013 Inactive Premarin 1.25 mg tablet RxNorm: 291655 1-2 Tablet(s) PO QD 01/28/20 13 06/25/2013 Inactive alprazolam 0.5 mg tablet RxNorm: 030708 1 Tablet(s) PO BID 01/28/20 13 02/25/2013 Inactive prn amlodipine 5 mg tablet RxNorm: 489112 1 Tablet(s) PO QD 01/27/2013 Inactive Celebrex 200 mg capsule RxNorm: 159927 1 Capsule(s) PO QD 01/27/2013 02/27/2013 Inactive gabapentin 600 mg tablet RxNorm: 701910 1 Tablet(s) PO QHS 01/16/20 13 07/22/2013 Inactive Soma 350 mg tablet RxNorm: 767031 1 Tablet(s) PO TID as needed for spasm 01/15/2013 No Stop Date Active hydrocodone 10 mg-acetaminophen 325 mg tablet RxNorm: 308497 2 1-2 Tablet(s) PO QID as needed for severe pain 01/15/2013 No Stop Date Active Soma 350 mg tablet RxNorm: 080777 1 Tablet(s) PO TID as needed for spasm 01/13/2013 No Stop Date Active alprazolam 0.5 mg tablet RxNorm: 999203 1 Tablet(s) PO BID 12/31/19 13 01/26/2013 Inactive prn diclofenac sodium 75 mg tablet,delayed release RxNorm: 07920 8 1 Tablet(s) PO BID for pain 12/09/2012 01/07/2013 Inactive gabapentin 600 mg tablet RxNorm: 006044 1 Tablet(s) PO QHS 12/10/19 13 01/07/2013 Inactive hydrocodone 10 mg-acetaminophen 325 mg tablet RxNorm: 459583 2 1-2 Tablet(s) PO QID as needed for severe pain 12/02/2012 No Stop Date Active Levaquin 750 mg tablet RxNorm: 333653 1 Tablet(s) PO QD 11/21/2012 Inactive Singulair 10 mg tablet RxNorm: 589634 1 Tablet(s) PO QD 11/11/2012 Inactive clonidine 0.2 mg tablet RxNorm: 867282 1 Tablet(s) PO TID 11/11/2012 04/15/2013 Inactive alprazolam 0.5 mg tablet RxNorm: 785557 1 Tablet(s) PO BID 11/12/19 13 12/10/2012 Inactive prn Klor-Con 8 mEq tablet,extended release RxNorm: 266090 1 Tablet( s) PO BID 11/11/2012 03/04/2013 Inactive hydrocodone 10 mg-acetaminophen 325 mg tablet RxNorm: 172511 2 1-2 Tablet(s) PO QID as needed for severe pain 11/06/2012 No Stop Date Active alprazolam 0.5 mg tablet RxNorm: 086406 1 Tablet(s) PO BID 10/15/19 13 11/10/2012 Inactive prn hydrocodone-acetaminophen 10 mg-325 mg tablet RxNorm: 028870 2 1-2 Tablet(s) PO QID as needed for severe pain 10/10/2012 10/09/2012 Inactive allopurinol 300 mg tablet RxNorm: 518445 1 Tablet(s) PO QD 09/20/19 13 12/18/2012 Inactive alprazolam 0.5 mg tablet RxNorm: 362551 1 Tablet(s) PO BID 09/17/19 13 10/14/2012 Inactive prn hydrocodone-acetaminophen 10 mg-325 mg tablet RxNorm: 713690 2 1-2 Tablet(s) PO QID as needed for severe pain 08/22/2012 08/21/2012 Inactive Norvasc 10 mg tablet RxNorm: 800169 1 Tablet(s) PO QD 08/12/201201/10 Inactive Premarin 1.25 mg tablet RxNorm: 617200 1-2 Tablet(s) PO QD 07/30/20 12 12/26/2012 Inactive alprazolam 0.5 mg tablet RxNorm: 763608 1 Tablet(s) PO BID 07/29/20 12 08/27/2012 Inactive prn Klor-Con 8 mEq tablet,extended release RxNorm: 692631 1 Tablet( s) PO BID 07/29/2012 11/10/2012 Inactive hydrocodone-acetaminophen 10 mg-325 mg tablet RxNorm: 967462 2 1-2 Tablet(s) PO QID as needed for severe pain 07/29/2012 No Stop Date Active Premarin 1.25 mg tablet RxNorm: 883840 1-2 Tablet(s) PO QD 07/29/20 12 07/29/2012 Inactive clonidine 0.2 mg tablet RxNorm: 993594 1 Tablet(s) PO TID 07/29/2012 10/28/2012 Inactive ketorolac 10 mg tablet RxNorm: 705103 1 Tablet(s) PO QID prn he adache 07/18/2012 No Stop Date Active hydrocodone-acetaminophen 10 mg-325 mg tablet RxNorm: 349028 2 1-2 Tablet(s) PO QID as needed for severe pain 07/03/2012 No Stop Date Active amlodipine 5 mg tablet RxNorm: 283413 1 Tablet(s) PO QD 07/02/2012 Inactive allopurinol 300 mg tablet RxNorm: 274853 1 Tablet(s) PO QD 07/02/20 12 09/19/2012 Inactive Celebrex 200 mg capsule RxNorm: 712460 1 Capsule(s) PO QD for j oint pain 06/26/2012 10/23/2012 Inactive diclofenac sodium 75 mg tablet,delayed release RxNorm: 40095 8 1 Tablet(s) PO BID for pain 06/19/2012 09/16/2012 Inactive hydrocodone-acetaminophen 10 mg-325 mg tablet RxNorm: 246795 2 1-2 Tablet(s) PO QID as needed for severe pain 06/10/2012 No Stop Date Active alprazolam 0.5 mg tablet RxNorm: 831973 1 Tablet(s) PO BID 06/03/20 12 07/02/2012 Inactive prn ketorolac 10 mg tablet RxNorm: 041143 1 Tablet(s) PO Q8H 05/27/2012 0 01/21/2019 Inactive as needed for headache hydrocodone-acetaminophen 10 mg-325 mg tablet RxNorm: 603429 2 1-2 Tablet(s) PO QID as needed for severe pain 05/15/2012 No Stop Date Active allopurinol 300 mg tablet RxNorm: 142476 1 Tablet(s) PO QD 05/14/20 12 06/12/2012 Inactive allopurinol 300 mg tablet RxNorm: 727343 1 Tablet(s) PO QD 05/14/20 12 05/13/2012 Inactive amlodipine 5 mg tablet RxNorm: 628885 1 Tablet(s) PO QD 05/01/2012 Inactive amlodipine 5 mg Tab RxNorm: 940481 1 Tablet(s) PO QD 05/01/201204/30 Inactive Celebrex 200 mg capsule RxNorm: 248708 1 Capsule(s) PO QD for j oint pain 05/01/2012 06/25/2012 Inactive Singulair 10 mg tablet RxNorm: 131959 1 Tablet(s) PO QD 05/01/2012 Inactive alprazolam 0.5 mg tablet RxNorm: 685130 1 Tablet(s) PO BID 05/01/20 12 05/30/2012 Inactive prn Celebrex 200 mg Cap RxNorm: 140630 1 Capsule(s) PO QD for joint radu n 05/01/2012 04/30/2012 Inactive hydrocodone-acetaminophen 10 mg-325 mg tablet RxNorm: 577378 2 1-2 Tablet(s) PO QID as needed for severe pain 04/19/2012 No Stop Date Active Lasix 40 mg tablet RxNorm: 483760 1 Tablet(s) PO QAM s hould take potassium supplementation with this medication 04/05/2012 06/03/2012 Inactive alprazolam 0.5 mg Tab RxNorm: 477912 1 Tablet(s) PO BID 04/05/2012 Inactive prn hydrocodone-acetaminophen 10 mg-325 mg Tab RxNorm: 0315818 1-2 Tablet(s) PO QID as needed for severe pain 03/25/2012 03/24/2012 Inactive clonidine 0.2 mg Tab RxNorm: 442044 1 Tablet(s) PO TID 03/08/2012 Inactive alprazolam 0.5 mg Tab RxNorm: 431221 1 Tablet(s) PO BID 03/08/2012 Inactive prn Soma 350 mg tablet RxNorm: 170927 1 Tablet(s) PO TID for spasm 02/0903/18/2012 Inactive clonidine 0.2 mg tablet RxNorm: 964164 1 Tablet(s) PO TID 03/08/2012 07/28/2012 Inactive Celebrex 200 mg Cap RxNorm: 404376 1 Capsule(s) PO QD for joint radu n 03/01/2012 04/29/2012 Inactive amlodipine 5 mg Tab RxNorm: 438679 1 Tablet(s) PO QD 02/26/201202/24 Inactive amlodipine 5 mg Tab RxNorm: 487862 1 Tablet(s) PO QD 02/26/201204/25 Inactive Bactroban 2 % Ointment RxNorm: 079594 Application TOP QID to sores 02/23/2012 No Stop Date Active amlodipine 2.5 mg tablet RxNorm: 659794 1 Tablet(s) PO QHS 02/20/20 12 02/25/2012 Inactive doxycycline hyclate 100 mg Cap RxNorm: 4936748 1 Capsule(s) PO BID 02/20/2012 02/29/2012 Inactive hydrocodone-acetaminophen 10 mg-325 mg Tab RxNorm: 4196403 1-2 T ablet(s) PO QID 02/08/2012 No Stop Date Active alprazolam 0.5 mg Tab RxNorm: 783921 1 Tablet(s) PO BID 02/08/2012 Inactive prn Singulair 10 mg Tab RxNorm: 753462 1 Tablet(s) PO QD 02/08/201204/30 Inactive Soma 350 mg Tab RxNorm: 842847 1 Tablet(s) PO TID for spasm 012 03/07/2012 Inactive Soma 350 mg Tab RxNorm: 414454 1 Tablet(s) PO TID for spasm 02/05/2012 Inactive diclofenac sodium 75 mg tablet,delayed release RxNorm: 40426 8 1 Tablet(s) PO BID for pain 02/01/2012 03/18/2012 Inactive Celebrex 200 mg Cap RxNorm: 588332 1 Capsule(s) PO QD for joint radu n 01/30/2012 02/28/2012 Inactive Lasix 40 mg Tab RxNorm: 143953 1 Tablet(s) PO QAM 01/24/2012 03/18/20 12 Inactive potassium chloride ER 20 mEq tablet,extended release(part/cr yst) RxNorm: 105341 2 Tablet(s) PO BID 01/24/2012 02/22/2012 Inactive alprazolam 0.5 mg Tab RxNorm: 417441 1 Tablet(s) PO BID 01/11/2012 Inactive prn hydrocodone-acetaminophen 10 mg-325 mg Tab RxNorm: 4714240 1-2 T ablet(s) PO QID 01/11/2012 No Stop Date Active Ambien 10 mg Tab RxNorm: 218821 1 Tablet(s) PO QHS 01/11/2012 012 Inactive Klor-Con 8 mEq Tab RxNorm: 812303 1 Tablet(s) PO BID 01/11/201201/22 Inactive diclofenac sodium 75 mg Tab, Delayed Release RxNorm: 310914 1 Tablet(s) PO BID for pain 01/10/2012 01/31/2012 Inactive Ambien 10 mg Tab RxNorm: 738473 1 Tablet(s) PO QHS 12/11/2011 012 Inactive alprazolam 0.5 mg Tab RxNorm: 105133 1 Tablet(s) PO BID 12/11/2011 Inactive prn hydrocodone 10 mg-acetaminophen 325 mg tablet RxNorm: 386626 1-2 Tablet(s) PO TID 11/28/2011 No Stop Date Active as needed for pa in - Previous quantity #240, will start dosing for #180 in April 2011 per Doctor Td. Ambien 10 mg Tab RxNorm: 469321 1 Tablet(s) PO QHS 11/09/2011 012 Inactive alprazolam 0.5 mg Tab RxNorm: 610965 1 Tablet(s) PO BID 11/09/2011 Inactive prn hydrocodone-acetaminophen 10 mg-325 mg Tab RxNorm: 5517484 1-2 T ablet(s) PO TID 11/06/2011 No Stop Date Active as needed for pain - Previous quantity #240, will start dosing for #180 in April 2011 per Doctor Td. Singulair 10 mg Tab RxNorm: 151938 1 Tablet(s) PO QD 10/13/201110/12 Inactive Singulair 10 mg Tab RxNorm: 146614 1 Tablet(s) PO QD 10/13/201102/06 Inactive hydrocodone-acetaminophen 10 mg-325 mg Tab RxNorm: 4581580 1-2 T ablet(s) PO TID 10/10/2011 10/09/2011 Inactive as needed for pain - Previous quantity #240, will start dosing for #180 in April 2011 per Doctor Td. hydrocodone-acetaminophen 10 mg-325 mg Tab RxNorm: 5759004 1-2 T ablet(s) PO TID 10/09/2011 No Stop Date Active as needed for pain - Previous quantity #240, will start dosing for #180 in April 2011 per Doctor Td. Klor-Con 8 mEq Tab RxNorm: 083529 1 Tablet(s) PO BID 10/02/201101/09 Inactive triamterene 75 mg-hydrochlorothiazide 50 mg tablet RxNorm: 3 69058 1 Tablet(s) PO QD 09/14/2011 03/06/2013 Inactive Ambien 10 mg Tab RxNorm: 794344 1 Tablet(s) PO QHS 09/14/2011 012 Inactive hydrocodone-acetaminophen 10 mg-325 mg Tab RxNorm: 2113999 1-2 T ablet(s) PO TID 09/14/2011 No Stop Date Active as needed for pain - Previous quantity #240, will start dosing for #180 in April 2011 per Doctor Td. alprazolam 0.5 mg Tab RxNorm: 386269 1 Tablet(s) PO BID 09/14/2011 Inactive prn Zithromax 500 mg Tab RxNorm: 938360 1 Tablet(s) PO QD 09/13/201109/10 Inactive prednisone 20 mg Tab RxNorm: 747354 1 Tablet(s) PO BID 08/31/2011 Inactive Ambien 10 mg Tab RxNorm: 347377 1 Tablet(s) PO QHS 08/17/2011 011 Inactive hydrocodone-acetaminophen 10 mg-325 mg Tab RxNorm: 1480132 1-2 T ablet(s) PO TID 08/17/2011 No Stop Date Active as needed for pain - Previous quantity #240, will start dosing for #180 in April 2011 per Doctor Td. clonidine 0.2 mg Tab RxNorm: 923535 1 Tablet(s) PO TID 08/17/201112/2011 Inactive Ambien 10 mg Tab RxNorm: 951793 1 Tablet(s) PO QHS 08/17/2011 019 Inactive alprazolam 0.5 mg Tab RxNorm: 991300 1 Tablet(s) PO BID 08/17/2011 Inactive prn hydrocodone-acetaminophen 10 mg-325 mg Tab RxNorm: 5563073 1-2 T ablet(s) PO TID 08/17/2011 08/16/2011 Inactive as needed for pain - Previous quantity #240, will start dosing for #180 in April 2011 per Doctor Td. Singulair 10 mg Tab RxNorm: 208013 1 Tablet(s) PO QD 08/17/201108/16 Inactive Klor-Con 8 mEq Tab RxNorm: 021782 1 Tablet(s) PO QD 08/17/20112011 Inactive alprazolam 0.5 mg Tab RxNorm: 087614 1 Tablet(s) PO BID 07/20/2011 Inactive prn Ambien 10 mg Tab RxNorm: 907485 1 Tablet(s) PO QHS 07/20/2011 012 Inactive Singulair 10 mg Tab RxNorm: 754031 1 Tablet(s) PO QD 07/20/201107/19 Inactive Premarin 1.25 mg tablet RxNorm: 237387 2 Tablet(s) PO QD 07/20/2011 0 01/21/2019 Inactive Premarin 1.25 mg tablet RxNorm: 946461 1-2 Tablet(s) PO QD 07/20/20 11 12/16/2011 Inactive Premarin 1.25 mg Tab RxNorm: 568344 1-2 Tablet(s) PO QD 07/06/2011 Inactive alprazolam 0.5 mg Tab RxNorm: 211623 1 Tablet(s) PO BID 06/22/2011 Inactive prn alprazolam 0.5 mg Tab RxNorm: 736732 1 Tablet(s) PO BID 06/22/2011 Inactive prn Premarin 1.25 mg Tab RxNorm: 948343 1 Tablet(s) PO QD m ay do 90 day fill if desired 06/22/2011 07/05/2011 Inactive hydrocodone-acetaminophen 10 mg-325 mg Tab RxNorm: 9117685 1-2 T ablet(s) PO TID 06/22/2011 No Stop Date Active as needed for pain - Previous quantity #240, will start dosing for #180 in April 2011 per Doctor Td. clonidine 0.2 mg Tab RxNorm: 367894 1 Tablet(s) PO TID 05/25/201103/2011 Inactive triamterene-hydrochlorothiazide 75 mg-50 mg Tab RxNorm: 3108 18 1 Tablet(s) PO QD 05/25/2011 09/13/2011 Inactive alprazolam 0.5 mg Tab RxNorm: 667208 1 Tablet(s) PO BID 05/25/2011 Inactive prn hydrocodone-acetaminophen 10 mg-325 mg Tab RxNorm: 1845570 1-2 T ablet(s) PO TID 05/25/2011 No Stop Date Active as needed for pain - Previous quantity #240, will start dosing for #180 in April 2011 per Doctor Td. Robaxin-750 750 mg Tab RxNorm: 414717 2 Tablet(s) PO QHS 05/22/2011 1 Inactive prn spasm hydrocodone-acetaminophen 10 mg-325 mg Tab RxNorm: 3045150 1-2 T ablet(s) PO TID 04/26/2011 No Stop Date Active as needed for pain - Previous quantity #240, will start dosing for #180 in April 2011 per Doctor Td. alprazolam 0.5 mg Tab RxNorm: 893495 1 Tablet(s) PO BID 04/25/2011 Inactive prn Klor-Con 8 mEq Tab RxNorm: 726779 1 Tablet(s) PO QD 03/30/20112010 Inactive Klor-Con 8 mEq Tab RxNorm: 350213 1 Tablet(s) PO QD 03/29/20112010 Inactive hydrocodone-acetaminophen 10 mg-325 mg Tab RxNorm: 8793211 1-2 T ablet(s) PO TID 03/20/2011 04/25/2011 Inactive as needed for pain - Previous quantity #240, will start dosing for #180 in April 2011 per Doctor Td. alprazolam 0.5 mg Tab RxNorm: 214788 1 Tablet(s) PO BID prn 011 03/30/2011 Inactive Ambien 10 mg Tab RxNorm: 960812 1 Tablet(s) PO QHS 03/01/2011 011 Inactive cyclobenzaprine 10 mg Tab RxNorm: 381502 1 Tablet(s) PO TID 011 03/18/2012 Inactive cyclobenzaprine 10 mg Tab RxNorm: 788770 1 Tablet(s) PO TID 011 01/08/2011 Inactive cyclobenzaprine 10 mg Tab RxNorm: 919616 1 Tablet(s) PO TID 011 12/20/2010 Inactive terbinafine 250 mg Tab RxNorm: 034527 1 Tablet(s) PO QD 12/12/2010 Inactive triamterene-hydrochlorothiazide 75 mg-50 mg Tab RxNorm: 3108 18 1 Tablet(s) PO QD 12/07/2010 01/12/2020 Inactive Klor-Con 8 8 mEq Tab RxNorm: 436386 1 Tablet(s) PO QD 12/07/201001/08 Inactive Premarin 1.25 mg Tab RxNorm: 695995 2 Tablet(s) PO QD 12/07/201001/08 Inactive clonidine 0.2 mg Tab RxNorm: 303370 1 Tablet(s) PO TID 12/07/2010 Inactive hydrocodone-acetaminophen 7.5 mg-650 mg Tab RxNorm: 653215 1 Ta blet(s) PO Q4H 12/05/2010 01/21/2019 Inactive hydrocodone-acetaminophen 7.5 mg-650 mg Tab RxNorm: 330215 1 Ta blet(s) PO Q4H 10/26/2010 11/14/2010 Inactive hydrocodone-acetaminophen 7.5 mg-650 mg Tab RxNorm: 403489 1 Ta blet(s) PO Q4H 10/13/2010 10/25/2010 Inactive hydrocodone-acetaminophen 7.5 mg-650 mg Tab RxNorm: 985720 1 Ta blet(s) PO Q4H 09/15/2010 09/12/2010 Inactive alprazolam 0.5 mg Tab RxNorm: 250970 1 Tablet(s) PO BID prn 011 09/12/2010 Inactive terbinafine 250 mg Tab RxNorm: 024233 1 Tablet(s) PO QD 09/05/2010 Inactive hydrocodone-acetaminophen 7.5 mg-650 mg Tab RxNorm: 652366 1 Ta blet(s) PO Q4H 08/29/2010 09/17/2010 Inactive alprazolam 0.5 mg Tab RxNorm: 964991 1 Tablet(s) PO BID prn 010 09/27/2010 Inactive alprazolam 0.5 mg Tab RxNorm: 577015 1 Tablet(s) PO BID prn 010 09/06/2010 Inactive Klor-Con 8 mEq Tab RxNorm: 653502 1 Tablet(s) PO QD 08/08/20102010 Inactive hydrocodone-acetaminophen 7.5 mg-650 mg Tab RxNorm: 087101 1 Ta blet(s) PO Q4H 08/08/2010 08/27/2010 Inactive Ambien 10 mg Tab RxNorm: 769307 1 Tablet(s) PO QHS 08/08/2010 Inactive clonidine 0.2 mg Tab RxNorm: 504305 1 Tablet(s) PO TID 08/08/2010 Inactive Premarin 1.25 mg Tab RxNorm: 175239 2 Tablet(s) PO QD 08/08/201009/12 Inactive Ambien 10 mg Tab RxNorm: 813513 1 Tablet(s) PO QHS 07/18/2010 Inactive alprazolam 0.5 mg Tab RxNorm: 714246 1 Tablet(s) PO BID prn 010 08/07/2010 Inactive hydrocodone-acetaminophen 7.5 mg-650 mg Tab RxNorm: 420896 1 Ta blet(s) PO Q4H 07/12/2010 07/31/2010 Inactive clonidine 0.2 mg Tab RxNorm: 621491 1 Tablet(s) PO TID 06/20/2010 Inactive terbinafine 250 mg Tab RxNorm: 509748 1 Tablet(s) PO QD 05/24/2010 Inactive Clonidine 0.2 mg Tab RxNorm: 423668 1 Tablet(s) PO TID 05/24/201006/2010 Inactive Ambien 10 mg Tab RxNorm: 086263 1 Tablet(s) PO QHS 05/24/2010 010 Inactive alprazolam 0.5 mg Tab RxNorm: 657600 1 Tablet(s) PO BID 05/24/2010 Inactive Klor-Con 8 mEq Tab RxNorm: 732914 1 Tablet(s) PO QD 05/24/20102009 Inactive alprazolam 0.5 mg Tab RxNorm: 575298 2 Tablet(s) PO QD prn 05/24/20 10 07/17/2010 Inactive triamterene-hydrochlorothiazide 75 mg-50 mg Tab RxNorm: 3108 18 1 Tablet(s) PO QD 05/24/2010 11/19/2010 Inactive Ambien 10 mg Tab RxNorm: 105039 1 Tablet(s) PO QHS 05/23/2010 010 Inactive Alprazolam 0.5 mg Tab RxNorm: 764769 2 Tablet(s) PO QD prn 05/23/2005/23/2010 Inactive Premarin 1.25 mg Tab RxNorm: 011801 2 Tablet(s) PO QD 05/19/201007/12 Inactive Hydrocodone-Acetaminophen 7.5 mg-650 mg Tab RxNorm: 320235 1 Ta blet(s) PO Q4H 05/19/2010 03/20/2011 Inactive Prednisone 20 mg Tab RxNorm: 031030 1 Tablet(s) PO BID 05/17/2010 Inactive Prednisone 20 mg Tab RxNorm: 568938 1 Tablet(s) PO BID 05/06/201001/2010 Inactive Premarin 1.25 mg Tab RxNorm: 326230 Tablet(s) PO 2 M-W-F, and 1 Lb-Kf-Oxe-Sun 05/05/2010 08/02/2010 Inactive Premarin 1.25 mg Tab RxNorm: 132778 Tablet(s) PO 2 M-W-F, and 1 En-Ub-Jzu-Sun 05/04/2010 05/04/2010 Inactive Premarin 1.25 mg Tab RxNorm: 623101 Tablet(s) PO 2 M-W-F, and 1 Nl-Da-Kft-Sun 05/04/2010 05/03/2010 Inactive Prednisone 20 mg Tab RxNorm: 493335 1 Tablet(s) PO BID 04/27/2010 Inactive Alprazolam 0.5 mg Tab RxNorm: 625584 2 Tablet(s) PO QD prn 04/26/20 10 05/22/2010 Inactive Clindamycin 300 mg Cap RxNorm: 764260 2 Capsule(s) PO TID 04/05/2010 04/18/2010 Inactive Terbinafine 250 mg Tab RxNorm: 931505 1 Tablet(s) PO QD 04/04/2010 Inactive Hydrocodone-Acetaminophen 7.5 mg-650 mg Tab RxNorm: 520066 1 Ta blet(s) PO Q4H 03/30/2010 04/18/2010 Inactive Avelox 400 mg Tab RxNorm: 549131 1 Tablet(s) PO QD 03/09/2010 010 Inactive Hydrocodone-Acetaminophen 7.5 mg-650 mg Tab RxNorm: 223049 1 Ta blet(s) PO Q4H 03/08/2010 03/27/2010 Inactive Alprazolam 0.5 mg Tab RxNorm: 708078 2 Tablet(s) PO QD prn 03/08/20 10 04/25/2010 Inactive Klor-Con 8 mEq Tab RxNorm: 762638 1 Tablet(s) PO QD when takes lasi x 03/07/2010 09/29/2019 Inactive Premarin 1.25 mg Tab RxNorm: 900812 1 Tablet(s) PO QD 03/03/201003/11 Inactive Alprazolam 0.5 mg Tab RxNorm: 147195 1 Tablet(s) PO BID PRN 010 No Stop Date Active triamterene-hydrochlorothiazide 75 mg-50 mg Tab RxNorm: 3108 18 1 Tablet(s) PO QD 02/09/2010 02/03/2011 Inactive Hydrocodone-Acetaminophen 10 mg-750 mg Tab RxNorm: 532240 1 Tablet(s) PO Q4H PRN 02/09/2010 03/20/2011 Inactive Clonidine 0.2 mg Tab RxNorm: 552161 1 Tablet(s) PO TID 01/13/201009/2009 Inactive Alprazolam 0.5 mg Tab RxNorm: 862716 1 Tablet(s) PO BID PRN 010 01/12/2010 Inactive Hydrocodone-Acetaminophen 10 mg-750 mg Tab RxNorm: 634132 1 Tablet(s) PO Q4H PRN 01/13/2010 01/12/2010 Inactive ANGELIQ 1 mg-0.5 mg Tab RxNorm: 2334106 1 Tablet(s) PO QD 12/27/2009 01/23/2010 Inactive Lasix 40 mg Tab RxNorm: 712106 1 Tablet(s) PO QAM 12/14/2009 06/11/20 10 Inactive Vitamin B12 1000mcg Tablet RxNorm: 1 Tablet(s) PO QD No Start Date Active cyclobenzaprine 10 mg tablet RxNorm: 547533 1 Tablet(s) PO TID as needed DO NOT USE WITH BACLOFEN No Start Date Active Vitamin D 5,000 unit Tab RxNorm: 1 Tablet(s) PO QD No Start Date Active vitamin E (dl, acetate) 400 unit Cap RxNorm: 474063 1 Capsule(s ) PO QD No Start Date Active Benadryl 25 mg Cap RxNorm: 3417591 Capsule(s) PO PRN No Start Date Inactive amitriptyline 100 mg tablet RxNorm: 217706 1 Tablet(s) PO QHS No St art Date 11/27/2016 Inactive Zithromax Z-Dustin 250 mg tablet RxNorm: 795106 Tablet(s) PO as di rected No Start Date 07/22/2013 Inactive Klor-Con 8 mEq tablet,extended release RxNorm: 469085 1 Tablet( s) PO BID No Start Date 07/28/2012 Inactive scopolamine 1.5 mg 72 hr Transderm Patch RxNorm: 632844 Application TD Q72H for motion sickness No Start Date 05/25/2013 Inactive Klonopin 1 mg tablet RxNorm: 562419 1-2 Tablet(s) PO QHS as nee ded for sleep No Start Date 06/20/2015 Inactive Klor-Con M20 mEq tablet,extended release RxNorm: 909054 2 Tablet(s) PO BID to use with lasix No Start Date 11/11/2013 Inactive Bystolic 5 mg tablet RxNorm: 743223 1 Tablet(s) PO QD No Start Date 1 Inactive Bystolic 10 mg tablet RxNorm: 460235 1 Tablet(s) PO BID No Start Da te 07/06/2015 Inactive Premarin 1.25 mg Tab RxNorm: 449328 Tablet(s) PO 2 -, and 1 Ha-Rd-Ehb-Liss No Start Date 05/03/2010 Inactive baclofen 20 mg tablet RxNorm: 943440 1 Tablet(s) PO TID as needed for muscle spasm No Start Date 07/22/2015 Inactive hydrocodone-acetaminophen 7.5 mg-650 mg Tab RxNorm: 543239 1 Tablet(s) PO Q4H as needed for pain No Start Date 03/20/2011 Inactive albuterol sulfate 1.25 mg/3 mL Neb Solution RxNorm: 834746 1 Unit Dose INH Q4H 2boxes No Start Date 09/06/2015 Inactive Butrans 20 mcg/hour Transderm Patch RxNorm: 550795 1 TD WEEKLY apply to skin weekly after removing previous. No Start Date 07/22/2013 Inactive Medrol (Dustin) 4 mg tablets in a dose pack RxNorm: 515613 Tablet(s) PO As Directed No Start Date 07/30/2016 Inactive hydrocodone-acetaminophen 10 mg-325 mg Tab RxNorm: 2721258 1-2 Tablet(s) PO TID as needed for pain No Start Date 03/19/2011 Inactive Klonopin 1 mg tablet RxNorm: 058927 1 Tablet(s) PO QHS No Start Date 02/28/2016 Inactive honey topical RxNorm: topical No Start Date 06/16/2018 Inactive Clonidine 0.2 mg Tab RxNorm: 417403 1 Tablet(s) PO TID No Start Date 01/12/2010 Inactive ketorolac 10 mg tablet RxNorm: 760502 1 Tablet(s) PO Q8H No Start D ate 03/18/2012 Inactive as needed for headache Singulair 10 mg Tab RxNorm: 137353 1 Tablet(s) PO QD No Start Date Inactive Premarin 1.25 mg Tab RxNorm: 919335 1 Tablet(s) PO QD No Start Date 1 Inactive Flonase 50 mcg/Actuation Nasal Fountain RxNorm: 1291994 1 Fountain [place] AL BID No Start Date 03/18/2012 Inactive Terbinafine 250 mg Tab RxNorm: 190604 1 Tablet(s) PO QD No Start Da te 04/03/2010 Inactive Fexofenadine 180 mg Tab RxNorm: 3606200 1 Tablet(s) PO QD No Start Date 09/06/2015 Inactive baclofen 20 mg tablet RxNorm: 729136 1 Tablet(s) PO TID as needed N o Start Date 05/25/2014 Inactive Diovan 160 mg Tab RxNorm: 652979 1 Tablet(s) PO QD No Start Date 09/12 Inactive mupirocin 2 % topical ointment RxNorm: 869566 1 Application TOP QID No Start Date 04/25/2016 Inactive ZOFRAN ODT 4 mg Tab, Rapid Dissolve RxNorm: 894486 1 Tablet(s) PO Q4H No Start Date 03/18/2012 Inactive as needed for nausea and vomiting Alprazolam 0.5 mg Tab RxNorm: 998024 1 Tablet(s) PO BID PRN No Star t Date 01/12/2010 Inactive cyclobenzaprine 10 mg tablet RxNorm: 475302 1 Tablet(s) PO TID as needed for muscle spasm No Start Date 10/08/2017 Inactive Albuterol 0.083% Aerosol Solution RxNorm: 1 Appl ication INH Q4H Use one ampule every 4 hrs with nebulizer as needed for shortness of breath. No Start Date 10/09/2010 Inactive lorazepam 1 mg tablet RxNorm: 648845 1 1/2 Tablet(s) PO QHS No Star t Date 02/02/2016 Inactive Melatonin 3 mg Tab RxNorm: 961264 Tablet(s) PO PRN No Start Date 07/11 Inactive Medrol (Dustin) 4 mg Tabs in a Dose Pack RxNorm: 664054 Tablet(s) PO N o Start Date 11/28/2010 Inactive lorazepam 1 mg tablet RxNorm: 790160 1 Tablet(s) PO QHS as need ed for sleep No Start Date 01/30/2016 Inactive hydrocodone-acetaminophen 10 mg-325 mg Tab RxNorm: 3874138 1-2 Tablet(s) PO QID as needed for severe pain No Start Date 03/24/2012 Inactive celecoxib 200 mg capsule RxNorm: 599441 1 Capsule(s) PO BID No Star t Date 06/26/2019 Inactive amlodipine 5 mg-benazepril 20 mg capsule RxNorm: 161636 1 Capsu le(s) PO QD No Start Date 04/10/2017 Inactive Bystolic 20 mg tablet RxNorm: 448467 1/2 Tablet(s) PO QAM No Start Date 01/23/2016 Inactive Bystolic 20 mg tablet RxNorm: 997083 1 Tablet(s) PO QAM No Start Da te 04/25/2016 Inactive Ambien 10 mg Tab RxNorm: 440708 1 Tablet(s) PO QHS No Start Date 05/11 Inactive Klor-Con 8 mEq Tab RxNorm: 772578 1 Tablet(s) PO QD when takes lasix No Start Date 03/06/2010 Inactive aspirin 81 mg tablet RxNorm: 509893 1 Tablet(s) PO QD No Start Date 0 01/29/2018 Inactive hydrocodone-acetaminophen 10 mg-325 mg Tab RxNorm: 5541664 1-2 T ablet(s) PO QID No Start Date 01/10/2012 Inactive Bystolic 10 mg tablet RxNorm: 184681 1 Tablet(s) PO QAM take one daily in the morning. No Start Date 05/28/2013 Inactive nystatin 100,000 unit/mL Oral Susp RxNorm: 464515 5 Milliliter( s) PO QID No Start Date 03/18/2012 Inactive swish and spit scopolamine 1.5 mg 72 hr Transderm Patch RxNorm: 864010 1 Unit Dose TD Q72H for motion sickness No Start Date 12/23/2013 Inactive Hydrocodone-Acetaminophen 10 mg-750 mg Tab RxNorm: 795136 1 Tablet(s) PO Q4H PRN No Start Date 01/12/2010 Inactive Soma 350 mg tablet RxNorm: 039044 1 Tablet(s) PO TID as needed for spasm No Start Date 01/12/2013 Inactive baclofen 10 mg tablet RxNorm: 201805 1 Tablet(s) PO TID as needed for muscle spasm No Start Date 09/18/2019 Inactive Soma 350 mg Tab RxNorm: 867300 1 Tablet(s) PO TID for spasm No Star t Date 01/31/2012 Inactive Co Q-10 400 mg capsule RxNorm: 939118 1 Capsule(s) PO QD No Start D ate 01/21/2019 Inactive nystatin 100,000 unit/gram topical cream RxNorm: 451367 Applica tion TOP BID No Start Date 03/22/2015 Inactive Exforge 5 mg-160 mg Tab RxNorm: 469484 1 Tablet(s) PO QD No Start D ate 10/09/2010 Inactive Hydrocodone-Acetaminophen 7.5 mg-650 mg Tab RxNorm: 854874 1 Ta blet(s) PO Q4H No Start Date 03/07/2010 Inactive Robaxin-750 750 mg Tab RxNorm: 048168 1-2 Tablet(s) PO TID prn spasm No Start Date 05/21/2011 Inactive amlodipine 5 mg tablet RxNorm: 229985 1 Tablet(s) PO QHS No Start D ate 09/29/2015 Inactive oxycodone-acetaminophen 10 mg-325 mg tablet RxNorm: 8780386 1-2 Tablet(s) PO Q6H No Start Date 06/16/2018 Inactive Triamterene-Hydrochlorothiazide 75 mg-50 mg Tab RxNorm: 3108 18 1 Tablet(s) PO QD No Start Date 02/08/2010 Inactive Alprazolam 0.5 mg Tab RxNorm: 709186 2 Tablet(s) PO QD prn No Start Date 03/07/2010 Inactive Bystolic 20 mg tablet RxNorm: 877692 1 Tablet(s) PO QAM No Start Da te 08/17/2015 Inactive ketorolac 10 mg tablet RxNorm: 485152 1 Tablet(s) PO QID prn he adache No Start Date 07/17/2012 Inactive acyclovir 800 mg Tab RxNorm: 292950 1 Tablet(s) PO BID No Start Date 03/18/2012 Inactive duloxetine 60 mg capsule,delayed release RxNorm: 185594 1 Capsu le(s) PO QD No Start Date 09/29/2015 Inactive Norvasc 5 mg tablet RxNorm: 320405 1 Tablet(s) PO QHS No Start Date 1 10/18/2014 Inactive promethazine 25 mg tablet RxNorm: 232880 1 Tablet(s) PO Q8H use sparingly No Start Date 07/22/2013 Inactive alprazolam 0.5 mg tablet RxNorm: 808167 3 Tablet(s) PO QHS No Start Date 06/06/2015 Inactive Lunesta 3 mg tablet RxNorm: 891346 1 Tablet(s) PO QHS No Start Date 0 09/20/2017 Inactive hydrocodone-acetaminophen 10 mg-325 mg Tab RxNorm: 0755687 1-2 Tablet(s) PO TID as needed for pain No Start Date 12/10/2011 Inactive Coricidin HBP Cough & Cold 4 mg-30 mg Tab RxNorm: 9363360 Tablet (s) PO PRN No Start Date 10/09/2010 Inactive Bactroban 2 % Ointment RxNorm: 972044 Application TOP QID to so res No Start Date 02/22/2012 Inactive Flonase 50 mcg/actuation Nasal F[place] RxNorm: 478147 2 Fountain [place] AL QHS No Start Date 03/03/2014 Inactive Medication Administered No Medication Administered data Immunizations Vaccine Codes Date Status Tetanus, Diptheria, Pertussis CVX: 115 02/27/2014 Results Observation Observation Code Item Item Code Result Date S [facility] Location COMPREHENSIVE METABOLIC 06225 AST 15 U/L 2019 Unknown COMPREHENSIVE METABOLIC 08458 ALT 13 U/L 2019 Unknown COMPREHENSIVE METABOLIC 94975 BUN 12 mg/dL 2019 Unknown COMPREHENSIVE METABOLIC 33941 ALBUMIN 3.9 g/dL 2019 Unknown COMPREHENSIVE METABOLIC 28756 CHLORIDE 97 mmol/L 2019 Unknown COMPREHENSIVE METABOLIC 21501 Bili Total 0.4 mg/dL 09/29 Unknown COMPREHENSIVE METABOLIC 02939 ALK PHOS 130 U/L 2019 Unknown COMPREHENSIVE METABOLIC 51268 SODIUM 136 mmol/L 09/29 Unknown COMPREHENSIVE METABOLIC 57392 CREATININE 0.92 mg/dL 09/11 Unknown COMPREHENSIVE METABOLIC 60293 CALCIUM 9.1 mg/dL 2019 Unknown COMPREHENSIVE METABOLIC 67301 POTASSIUM 4.4 mmol/L 09/29 Unknown COMPREHENSIVE METABOLIC 67672 Total Protein 6.2 g/dL Unknown COMPREHENSIVE METABOLIC 58684 Glucose 391 mg/dL 2019 Unknown COMPREHENSIVE METABOLIC 91059 Bicarbonate 30 mmol/L 09/11 Unknown COMPREHENSIVE METABOLIC 40468 AGAP 9 mmol/L 2019 Unknown MEAN GLUC 6492616 Calc Mean Gluc 332 mg/dL 09/29/2019 Unkn own COMPLETE BLOOD COUNT [id number] WBC 7.0 10e9/L 09/29/19 Unknown COMPLETE BLOOD COUNT [id number] RBC 4.69 10e12/L 2019 Unknown COMPLETE BLOOD COUNT 7306097 HEMOGLOBIN 14.6 g/dL 09/29/19 Unknown COMPLETE BLOOD COUNT [id number] HEMATOCRIT 45.2 % 09/29/19 Unknown COMPLETE BLOOD COUNT [id number] MCV 96.4 fL 0 Unknown COMPLETE BLOOD COUNT [id number] MCH 31.1 pg 0 Unknown COMPLETE BLOOD COUNT 8849033 MCHC 32.3 g/dL 0 Unknown COMPLETE BLOOD COUNT [id number] PLATELET COUNT 209 10e9/L Unknown COMPLETE BLOOD COUNT 5753014 Mean Plt Volume 9.8 fL Unknown COMPLETE BLOOD COUNT 4255611 Neut Auto 48.1 % 0 Unknown COMPLETE BLOOD COUNT [id number] Lymph Auto 36.5 % 09/29/19 Unknown COMPLETE BLOOD COUNT 6931030 [place] Auto 8.6 % 0 Unknown COMPLETE BLOOD COUNT 9083415 RDW 13.4 % 0 Unknown COMPLETE BLOOD COUNT 1694380 Eos Auto 6.5 % 0 Unknown COMPLETE BLOOD COUNT 5390136 Baso Auto 0.3 % 0 Unknown COMPLETE BLOOD COUNT [id number] Neutrophil Abs 3.37 10e9/L Unknown COMPLETE BLOOD COUNT [id number] Lymphocyte Abs 2.56 10e9/L Unknown COMPLETE BLOOD COUNT [id number] Monocyte Abs 0.60 10e9/L 09/11 Unknown COMPLETE BLOOD COUNT [id number] Eosinophil Abs 0.46 10e9/L Unknown COMPLETE BLOOD COUNT [id number] RDW-SD 45.9 fL 0 Unknown COMPLETE BLOOD COUNT [id number] Basophil Abs 0.02 10e9/L 09/11 Unknown LIPID GROUP 54856 Cholesterol 248 mg/dL 09/29/2019 Unkno wn LIPID GROUP 88861 Triglyceride 898 mg/dL 09/29/2019 Unkn own LIPID GROUP 74326 HDL CHOLESTEROL 41 mg/dL 09/29/2019 U nknown LIPID GROUP 85305 Chol/HDL Ratio 6.05 ratio 09/29/2019 U nknown LIPID GROUP 46871 NON-HDL Chol 207 mg/dL 09/29/2019 Unkn own LIPID GROUP 90019 LDL Cholesterol N/A Trig >400 020 Unknown GLYCOSYLATED HEMOGLOBIN TEST 56189 Hgb A1c 97205-2 13.2 % 0 09/29/2019 Unknown FREE T4 10123 T4 Free 0.75 ng/dL 09/29/2019 Unknown GFR CALC 8284516 GFR Non Afr Amr >60 mL/min 09/29/2019 Un known GFR CALC 1637019 GFR Afr Amr >60 mL/min 09/29/2019 Unknow n THYROID STIMULATING HORMONE 83951 TSH 4.245 uIU/mL 09/29/2019 Unknown COMPLETE BLOOD COUNT 8940483 WBC 10.7 10e9/L 018 Unknown COMPLETE BLOOD COUNT 8347418 RBC 4.59 10e12/L 2017 Unknown COMPLETE BLOOD COUNT 5208696 HEMOGLOBIN 14.8 g/dL 12/11/19 18 Unknown COMPLETE BLOOD COUNT 7530103 HEMATOCRIT 44.9 % 12/11/19 18 Unknown COMPLETE BLOOD COUNT 7856989 MCV 97.8 fL 8 Unknown COMPLETE BLOOD COUNT 9373129 MCH 32.2 pg 8 Unknown COMPLETE BLOOD COUNT 3076197 MCHC 33.0 g/dL 8 Unknown COMPLETE BLOOD COUNT 2618011 PLATELET COUNT 261 10e9/L 10/2017 Unknown COMPLETE BLOOD COUNT 2264765 Mean Plt Volume 9.5 fL 10/2017 Unknown COMPLETE BLOOD COUNT 6348146 Neut Auto 59.9 % 8 Unknown COMPLETE BLOOD COUNT 2664930 Lymph Auto 27.4 % 12/11/19 18 Unknown COMPLETE BLOOD COUNT 5432094 [place] Auto 8.2 % 8 Unknown COMPLETE BLOOD COUNT 9450268 RDW 13.3 % 8 Unknown COMPLETE BLOOD COUNT 3709190 Eos Auto 4.1 % 8 Unknown COMPLETE BLOOD COUNT 0517250 Baso Auto 0.4 % 8 Unknown COMPLETE BLOOD COUNT 0012088 Neutrophil Abs 6.41 10e9/L Unknown COMPLETE BLOOD COUNT 8751288 Lymphocyte Abs 2.93 10e9/L Unknown COMPLETE BLOOD COUNT [id number] Monocyte Abs 0.88 10e9/L 10/2017 Unknown COMPLETE BLOOD COUNT [id number] Eosinophil Abs 0.44 10e9/L Unknown COMPLETE BLOOD COUNT 7101837 RDW-SD 46.2 fL 8 Unknown COMPLETE BLOOD COUNT [id number] Basophil Abs 0.04 10e9/L 10/2017 Unknown THYROID STIMULATING HORMONE 34107 TSH 4.015 uIU/mL 12/10/2017 Unknown COMPREHENSIVE METABOLIC 00471 AST 25 U/L 2017 Unknown COMPREHENSIVE METABOLIC 14800 ALT 17 U/L 2017 Unknown COMPREHENSIVE METABOLIC 48657 BUN 19 mg/dL 2017 Unknown COMPREHENSIVE METABOLIC 29371 ALBUMIN 4.0 g/dL 2017 Unknown COMPREHENSIVE METABOLIC 09234 CHLORIDE 91 mmol/L 2017 Unknown COMPREHENSIVE METABOLIC 50449 Bili Total 0.5 mg/dL 12/10 Unknown COMPREHENSIVE METABOLIC 96098 ALK PHOS 75 U/L 2017 Unknown COMPREHENSIVE METABOLIC 73333 SODIUM 136 mmol/L 12/10 Unknown COMPREHENSIVE METABOLIC 60173 CREATININE 1.05 mg/dL 10/2017 Unknown COMPREHENSIVE METABOLIC 73434 CALCIUM 8.9 mg/dL 2017 Unknown COMPREHENSIVE METABOLIC 98009 POTASSIUM 3.4 mmol/L 12/10 Unknown COMPREHENSIVE METABOLIC 57577 Total Protein 6.5 g/dL Unknown COMPREHENSIVE METABOLIC 32922 Glucose 138 mg/dL 2017 Unknown COMPREHENSIVE METABOLIC 09680 Bicarbonate 35 mmol/L 10/2017 Unknown COMPREHENSIVE METABOLIC 30266 AGAP 10 mmol/L 2017 Unknown MEAN GLUC 3482465 Calc Mean Gluc 171 mg/dL 12/10/2017 Unkn own LIPID GROUP 25380 Cholesterol 204 mg/dL 12/10/2017 Unkno wn LIPID GROUP 78145 Triglyceride 411 mg/dL 12/10/2017 Unkn own LIPID GROUP 46348 HDL CHOLESTEROL 50 mg/dL 12/10/2017 U nknown LIPID GROUP 17000 Chol/HDL Ratio 4.08 ratio 12/10/2017 U nknown LIPID GROUP 46777 NON-HDL Chol 154 mg/dL 12/10/2017 Unkn own LIPID GROUP 10153 LDL Cholesterol N/A Trig >400 018 Unknown GLYCOSYLATED HEMOGLOBIN TEST 43744 Hgb A1c 50593-8 7.6 % 0 12/10/2017 Unknown FREE T4 95493 T4 Free 1.40 ng/dL 12/10/2017 Unknown GFR CALC 7017935 GFR Non Afr Amr 55 mL/min 12/10/2017 Unk nown GFR CALC 9188135 GFR Afr Amr >60 mL/min 12/10/2017 Unknow n GFR CALC 7837154 GFR Non Afr Amr 48 mL/min 06/28/2017 Unk nown GFR CALC 8114472 GFR Afr Amr 59 mL/min 06/28/2017 Unknown COMPREHENSIVE METABOLIC 50040 AST 32 U/L 2016 Unknown COMPREHENSIVE METABOLIC 97800 ALT 22 U/L 2016 Unknown COMPREHENSIVE METABOLIC 55183 BUN 23 mg/dL 2016 Unknown COMPREHENSIVE METABOLIC 33831 ALBUMIN 4.7 g/dL 2016 Unknown COMPREHENSIVE METABOLIC 84190 CHLORIDE 89 mmol/L 2016 Unknown COMPREHENSIVE METABOLIC 98109 Bili Total 0.5 mg/dL 06/28 Unknown COMPREHENSIVE METABOLIC 38569 ALK PHOS 90 U/L 2016 Unknown COMPREHENSIVE METABOLIC 73268 SODIUM 135 mmol/L 06/28 Unknown COMPREHENSIVE METABOLIC 49380 CREATININE 1.18 mg/dL 06/10 Unknown COMPREHENSIVE METABOLIC 89349 CALCIUM 9.7 mg/dL 2016 Unknown COMPREHENSIVE METABOLIC 31159 POTASSIUM 3.5 mmol/L 06/28 Unknown COMPREHENSIVE METABOLIC 41183 Total Protein 7.7 g/dL Unknown COMPREHENSIVE METABOLIC 45644 Glucose 129 mg/dL 2016 Unknown COMPREHENSIVE METABOLIC 88187 Bicarbonate 34 mmol/L 06/10 Unknown COMPREHENSIVE METABOLIC 59323 AGAP 12 mmol/L 2016 Unknown LIPID GROUP 55960 HDL TEST 64 MG/DL 08/27/2014 Unknown LIPID GROUP 46416 TRIG 222 MG/DL 08/27/2014 Unknown LIPID GROUP 67286 TEST LDL 209 MG/DL 08/27/2014 Unknown LIPID GROUP 17901 CHOL 317 MG/DL 08/27/2014 Unknown LIPID GROUP 31973 RCHOL/HDL 4.95 RATIO 08/27/2014 Unknow n LIPID GROUP 03620 NON-HDL CH 253 MG/DL 08/27/2014 Unknow n GFR CALC 7928546 GFR AA >60 ML/MIN 08/27/2014 Unknown GFR CALC 8812463 GFR NON-AA >60 ML/MIN 08/27/2014 Unknown COMPLETE BLOOD COUNT 3094914 WBC 7.0 10e9/L 08/27/20 14 Unknown COMPLETE BLOOD COUNT [id number] RBC 4.98 10e12/L 2013 Unknown COMPLETE BLOOD COUNT 7512429 HGB 15.6 g/dL 4 Unknown COMPLETE BLOOD COUNT 7704570 HCT DET 46.5 % 4 Unknown COMPLETE BLOOD COUNT 5552530 MCV 93.4 fL 4 Unknown COMPLETE BLOOD COUNT 7762868 MCH 31.3 pg 4 Unknown COMPLETE BLOOD COUNT 7587856 MCHC 33.5 g/dL 4 Unknown COMPLETE BLOOD COUNT 9772449 PLT 309 10e9/L 08/27/20 14 Unknown COMPLETE BLOOD COUNT 4764779 MPV 9.6 fL 4 Unknown COMPLETE BLOOD COUNT 1411623 CADEN % 57.2 % 4 Unknown COMPLETE BLOOD COUNT 4630218 LY % 33.2 % 4 Unknown COMPLETE BLOOD COUNT 1079514 MON % 7.3 % 4 Unknown COMPLETE BLOOD COUNT 2856915 EOS % 2.0 % 4 Unknown COMPLETE BLOOD COUNT 1136394 BASO % 0.3 % 4 Unknown COMPLETE BLOOD COUNT 8892690 RDW 13.7 % 4 Unknown COMPLETE BLOOD COUNT 3330403 ABS CADEN 4.00 10e9/L 014 Unknown COMPLETE BLOOD COUNT 2704657 ABS LYMPH 2.32 10e9/L 014 Unknown COMPLETE BLOOD COUNT 6829592 ABS MONO 0.51 10e9/L 014 Unknown COMPLETE BLOOD COUNT 1077074 ABS EOS 0.14 10e9/L 014 Unknown COMPLETE BLOOD COUNT 6773491 ABS BASO 0.02 10e9/L 014 Unknown COMPLETE BLOOD COUNT 2124572 RDW-SD 45.1 fL 4 Unknown COMPREHENSIVE METABOLIC 82198 AST 13 U/L 2013 Unknown COMPREHENSIVE METABOLIC 38475 ALT 11 IU/L 2013 Unknown COMPREHENSIVE METABOLIC 52288 BUN 23 MG/DL 2013 Unknown COMPREHENSIVE METABOLIC 77340 ALBUMIN 4.4 GM/DL 2013 Unknown COMPREHENSIVE METABOLIC 70713 CHLORIDE 99 MMOL/L 2013 Unknown COMPREHENSIVE METABOLIC 95869 BILI TOT 0.5 MG/DL 2013 Unknown COMPREHENSIVE METABOLIC 25620 ALK PHOS 56 U/L 2013 Unknown COMPREHENSIVE METABOLIC 25843 SODIUM 138 MMOL/L 08/27 Unknown COMPREHENSIVE METABOLIC 16331 CREATININE 0.95 MG/DL 08/10 Unknown COMPREHENSIVE METABOLIC 00925 CALCIUM 9.8 MG/DL 2013 Unknown COMPREHENSIVE METABOLIC 28289 POTASSIUM 3.5 MMOL/L 08/27 Unknown COMPREHENSIVE METABOLIC 38572 PROT TOT 6.8 GM/DL 2013 Unknown COMPREHENSIVE METABOLIC 45723 Glucose 90 MG/DL 2013 Unknown COMPREHENSIVE METABOLIC 83404 BICARB 34 MMOL/L 2013 Unknown COMPREHENSIVE METABOLIC 99576 ANION GAP 5 MEQ/L 2013 Unknown LIPASE 65437 LIPASE 11 IU/L 07/21/2014 Unknown AMYLASE 36374 AMYLASE 39 IU/L 07/21/2014 Unknown HEMOGLOBIN A1C (GLYCOSYLATED) 6330180 A1C HPLC 81144-9 6.2 % 03/05/2013 Unknown THYROID STIMULATING HORMONE 86808 TSH 6.986 uIU/ML 03/05/2013 Unknown COMPLETE BLOOD COUNT 6083510 WBC 12.7 10e9/L 013 Unknown COMPLETE BLOOD COUNT 7985985 RBC 4.53 10e12/L 2012 Unknown COMPLETE BLOOD COUNT 7471848 HGB 14.7 g/dL 3 Unknown COMPLETE BLOOD COUNT 8566938 HCT DET 43.1 % 3 Unknown COMPLETE BLOOD COUNT 4970945 MCV 95.1 fL 3 Unknown COMPLETE BLOOD COUNT 5703863 MCH 32.5 pg 3 Unknown COMPLETE BLOOD COUNT 4124172 MCHC 34.1 g/dL 3 Unknown COMPLETE BLOOD COUNT 9999506 PLT 346 10e9/L 03/05/20 13 Unknown COMPLETE BLOOD COUNT 1696874 MPV 9.5 fL 3 Unknown COMPLETE BLOOD COUNT 4844899 CADEN % 67.6 % 3 Unknown COMPLETE BLOOD COUNT 5525879 LY % 22.1 % 3 Unknown COMPLETE BLOOD COUNT 3517572 MON % 6.6 % 3 Unknown COMPLETE BLOOD COUNT 9957782 EOS % 3.3 % 3 Unknown COMPLETE BLOOD COUNT 4854716 BASO % 0.4 % 3 Unknown COMPLETE BLOOD COUNT 0998453 RDW 14.0 % 3 Unknown COMPLETE BLOOD COUNT 5173206 ABS CADEN 8.59 10e9/L 013 Unknown COMPLETE BLOOD COUNT 9396454 ABS LYMPH 2.81 10e9/L 013 Unknown COMPLETE BLOOD COUNT [id number] ABS MONO 0.84 10e9/L 013 Unknown COMPLETE BLOOD COUNT 7484957 ABS EOS 0.42 10e9/L 013 Unknown COMPLETE BLOOD COUNT [id number] ABS BASO 0.05 10e9/L 013 Unknown COMPLETE BLOOD COUNT 6124566 RDW-SD 46.0 fL 3 Unknown FREE T4 49798 FREE T4 1.14 NG/DL 03/05/2013 Unknown COMPREHENSIVE METABOLIC 59751 AST 17 U/L 2012 Unknown COMPREHENSIVE METABOLIC 16123 ALT 12 IU/L 2012 Unknown COMPREHENSIVE METABOLIC 84880 BUN 24 MG/DL 2012 Unknown COMPREHENSIVE METABOLIC 25288 ALBUMIN 4.2 GM/DL 2012 Unknown COMPREHENSIVE METABOLIC 38259 CHLORIDE 93 MMOL/L 2012 Unknown COMPREHENSIVE METABOLIC 61155 BILI TOT 0.5 MG/DL 2012 Unknown COMPREHENSIVE METABOLIC 10431 ALK PHOS 75 U/L 2012 Unknown COMPREHENSIVE METABOLIC 91693 SODIUM 141 MMOL/L 03/05 Unknown COMPREHENSIVE METABOLIC 63317 CREATININE 1.36 MG/DL 02/09 Unknown COMPREHENSIVE METABOLIC 96726 CALCIUM 9.2 MG/DL 2012 Unknown COMPREHENSIVE METABOLIC 33986 POTASSIUM 3.1 MMOL/L 03/05 Unknown COMPREHENSIVE METABOLIC 23295 PROT TOT 6.9 GM/DL 2012 Unknown COMPREHENSIVE METABOLIC 93894 Glucose 123 MG/DL 2012 Unknown COMPREHENSIVE METABOLIC 56973 BICARB 36 MMOL/L 2012 Unknown COMPREHENSIVE METABOLIC 64257 ANION GAP 12 MEQ/L 2012 Unknown GFR CALC 4998586 GFR AA 51.0L ML/MIN 03/05/2013 Unknow n GFR CALC 4819808 GFR NON-AA 42.0L ML/MIN 03/05/2013 Unkno wn COMPREHENSIVE METABOLIC 08323 AST 14 U/L 2012 Unknown COMPREHENSIVE METABOLIC 25093 ALT 11 IU/L 2012 Unknown COMPREHENSIVE METABOLIC 79331 BUN 16 MG/DL 2012 Unknown COMPREHENSIVE METABOLIC 80942 ALBUMIN 4.2 GM/DL 2012 Unknown COMPREHENSIVE METABOLIC 58747 CHLORIDE 98 MMOL/L 2012 Unknown COMPREHENSIVE METABOLIC 21196 BILI TOT 0.4 MG/DL 2012 Unknown COMPREHENSIVE METABOLIC 66621 ALK PHOS 77 U/L 2012 Unknown COMPREHENSIVE METABOLIC 30216 SODIUM 139 MMOL/L 09/25 Unknown COMPREHENSIVE METABOLIC 97149 CREATININE 0.86 MG/DL 09/10 Unknown COMPREHENSIVE METABOLIC 75198 CALCIUM 9.5 MG/DL 2012 Unknown COMPREHENSIVE METABOLIC 46636 POTASSIUM 3.8 MMOL/L 09/25 Unknown COMPREHENSIVE METABOLIC 52496 PROT TOT 6.8 GM/DL 2012 Unknown COMPREHENSIVE METABOLIC 83775 Glucose 91 MG/DL 2012 Unknown COMPREHENSIVE METABOLIC 74616 BICARB 32 MMOL/L 2012 Unknown COMPREHENSIVE METABOLIC 68215 ANION GAP 9 MEQ/L 2012 Unknown FREE T4 82816 FREE T4 0.98 NG/DL 09/25/2012 Unknown THYROID STIMULATING HORMONE 95627 TSH 1.736 uIU/ML 09/25/2012 Unknown C-REACTIVE PROTEIN (CRP) QUANT 93168 CRP 2.3 MG/DL 09/25/2012 Unknown COMPLETE BLOOD COUNT [id number] WBC 11.9 10e9/L 013 Unknown COMPLETE BLOOD COUNT [id number] RBC 4.87 10e12/L 2012 Unknown COMPLETE BLOOD COUNT 0374329 HGB 15.1 g/dL 3 Unknown COMPLETE BLOOD COUNT 7932225 HCT DET 44.8 % 3 Unknown COMPLETE BLOOD COUNT 1962430 MCV 92.0 fL 3 Unknown COMPLETE BLOOD COUNT 9123189 MCH 31.0 pg 3 Unknown COMPLETE BLOOD COUNT 6933295 MCHC 33.7 g/dL 3 Unknown COMPLETE BLOOD COUNT 3493250 PLT 343 10e9/L 09/25/19 13 Unknown COMPLETE BLOOD COUNT 4863614 MPV 9.0 fL 3 Unknown COMPLETE BLOOD COUNT 5399283 CADEN % 68.2 % 3 Unknown COMPLETE BLOOD COUNT 8592254 LY % 22.4 % 3 Unknown COMPLETE BLOOD COUNT 2305101 MON % 6.4 % 3 Unknown COMPLETE BLOOD COUNT 1621704 EOS % 2.7 % 3 Unknown COMPLETE BLOOD COUNT 4358906 BASO % 0.3 % 3 Unknown COMPLETE BLOOD COUNT 6172418 RDW 13.8 % 3 Unknown COMPLETE BLOOD COUNT 2857944 ABS CADEN 8.12 10e9/L 013 Unknown COMPLETE BLOOD COUNT 1298035 ABS LYMPH 2.67 10e9/L 013 Unknown COMPLETE BLOOD COUNT 8418934 ABS MONO 0.76 10e9/L 013 Unknown COMPLETE BLOOD COUNT 7577600 ABS EOS 0.32 10e9/L 013 Unknown COMPLETE BLOOD COUNT 8397223 ABS BASO 0.04 10e9/L 013 Unknown COMPLETE BLOOD COUNT 5718771 RDW-SD 45.6 fL 3 Unknown GFR CALC 8180304 GFR AA >60 ML/MIN 09/25/2012 Unknown GFR CALC 0494294 GFR NON-AA >60 ML/MIN 09/25/2012 Unknown ERYTHROCYTE SEDIMENTATION RATE 55842 ESR 19 MM/HR 05/06/2012 Unknown VITAMIN B 12 FOLIC ACID 48603|78377 VIT B 12 922 PG/ML 04/11 Unknown VITAMIN B 12 FOLIC ACID 80913|64240 FOLIC ACID 13.6 NG/ML Unknown URIC ACID 73535 URIC ACID 7.8 MG/DL 05/06/2012 Unknown COMPLETE BLOOD COUNT 96689 WBC 11.9 10e9/L 012 Unknown COMPLETE BLOOD COUNT 55182 RBC 5.30 10e12/L 2011 Unknown COMPLETE BLOOD COUNT 42933 HGB 16.6 g/dL 2 Unknown COMPLETE BLOOD COUNT 54381 HCT DET 47.2 % 2 Unknown COMPLETE BLOOD COUNT 80126 MCV 89.1 fL 2 Unknown COMPLETE BLOOD COUNT 91252 MCH 31.3 pg 2 Unknown COMPLETE BLOOD COUNT 96938 MCHC 35.2 g/dL 2 Unknown COMPLETE BLOOD COUNT 04679 PLT 362 10e9/L 05/06/20 12 Unknown COMPLETE BLOOD COUNT 00086 MPV 9.4 fL 2 Unknown COMPLETE BLOOD COUNT 56636 CADEN % 68.2 % 2 Unknown COMPLETE BLOOD COUNT 58477 LY % 22.0 % 2 Unknown COMPLETE BLOOD COUNT 26406 MON % 6.9 % 2 Unknown COMPLETE BLOOD COUNT 81975 EOS % 2.6 % 2 Unknown COMPLETE BLOOD COUNT 57597 BASO % 0.3 % 2 Unknown COMPLETE BLOOD COUNT 33489 RDW 12.8 % 2 Unknown COMPLETE BLOOD COUNT 84477 ABS CADEN 8.12 10e9/L 012 Unknown COMPLETE BLOOD COUNT 97316 ABS LYMPH 2.62 10e9/L 012 Unknown COMPLETE BLOOD COUNT 58095 ABS MONO 0.82 10e9/L 012 Unknown COMPLETE BLOOD COUNT 04720 ABS EOS 0.31 10e9/L 012 Unknown COMPLETE BLOOD COUNT 45643 ABS BASO 0.04 10e9/L 012 Unknown COMPLETE BLOOD COUNT 45473 RDW-SD 41.5 fL 2 Unknown GFR CALC [id number] GFR AA >60 ML/MIN 05/06/2012 Unknown GFR CALC [id number] GFR NON-AA 58.0L ML/MIN 05/06/2012 Unkno wn FREE T4 95317 FREE T4 1.15 NG/DL 05/06/2012 Unknown THYROID STIMULATING HORMONE 75597 TSH 1.568 uIU/ML 05/06/2012 Unknown COMPREHENSIVE METABOLIC 96381 AST 20 U/L 2011 Unknown COMPREHENSIVE METABOLIC 48167 ALT 12 IU/L 2011 Unknown COMPREHENSIVE METABOLIC 05418 BUN 20 MG/DL 2011 Unknown COMPREHENSIVE METABOLIC 05675 ALBUMIN 4.5 GM/DL 2011 Unknown COMPREHENSIVE METABOLIC 47037 CHLORIDE 91 MMOL/L 2011 Unknown COMPREHENSIVE METABOLIC 46506 BILI TOT 0.4 MG/DL 2011 Unknown COMPREHENSIVE METABOLIC 48596 ALK PHOS 73 U/L 2011 Unknown COMPREHENSIVE METABOLIC 65604 SODIUM 139 MMOL/L 05/06 Unknown COMPREHENSIVE METABOLIC 84393 CREATININE 1.02 MG/DL 04/11 Unknown COMPREHENSIVE METABOLIC 07627 CALCIUM 9.7 MG/DL 2011 Unknown COMPREHENSIVE METABOLIC 21224 POTASSIUM 3.1 MMOL/L 05/06 Unknown COMPREHENSIVE METABOLIC 56516 PROT TOT 7.3 GM/DL 2011 Unknown COMPREHENSIVE METABOLIC 25285 Glucose 118 MG/DL 2011 Unknown COMPREHENSIVE METABOLIC 49758 BICARB 33 MMOL/L 2011 Unknown COMPREHENSIVE METABOLIC 22570 ANION GAP 15 MEQ/L 2011 Unknown Procedures Procedure Codes Date ROUTINE VENIPUNCTURE CPT-4: 13002 09/29/2019 URINALYSIS NONAUTO W/O SCOPE CPT-4: 49075 09/29/2019 COMPREHEN METABOLIC PANEL CPT-4: 60219 09/29/2019 LIPID PANEL CPT-4: 97928 09/29/2019 A1C HPLC CPT-4: 30171 09/29/2019 ASSAY OF FREE THYROXINE CPT-4: 37460 09/29/2019 ASSAY THYROID STIM HORMONE CPT-4: 93851 09/29/2019 COMPLETE CBC W/AUTO DIFF WBC CPT-4: 32207 09/29/2019 URINALYSIS NONAUTO W/O SCOPE CPT-4: 90356 09/30/2018 MICROALBUMIN QUANTITATIVE CPT-4: 60320 09/30/2018 CEFTRIAXONE SODIUM INJECTION CPT-4: J0696 06/19/2018 THER/PROPH/DIAG INJ SC/IM CPT-4: 13692 06/19/2018 CEFTRIAXONE SODIUM INJECTION CPT-4: J0696 06/17/2018 THER/PROPH/DIAG INJ SC/IM CPT-4: 42421 06/17/2018 THER/PROPH/DIAG INJ SC/IM CPT-4: 06820 05/16/2018 KETOROLAC TROMETHAMINE INJ CPT-4: J1885 05/16/2018 ONDANSETRON HCL INJECTION CPT-4: J2405 05/16/2018 THER/PROPH/DIAG INJ SC/IM CPT-4: 14439 05/16/2018 ROUTINE VENIPUNCTURE CPT-4: 18011 03/20/2018 COMPREHEN METABOLIC PANEL CPT-4: 81480 03/20/2018 DEXAMETHASONE SODIUM PHOS CPT-4: J1100 02/11/2018 THER/PROPH/DIAG INJ SC/IM CPT-4: 20098 02/11/2018 TRIAMCINOLONE ACET INJ NOS CPT-4: J3301 02/11/2018 CEFTRIAXONE SODIUM INJECTION CPT-4: J0696 02/01/2018 THER/PROPH/DIAG INJ SC/IM CPT-4: 16043 02/01/2018 CEFTRIAXONE SODIUM INJECTION CPT-4: J0696 01/30/2018 THER/PROPH/DIAG INJ SC/IM CPT-4: 43289 01/30/2018 ROUTINE VENIPUNCTURE CPT-4: 96904 12/10/2017 ASSAY OF FREE THYROXINE CPT-4: 84023 12/10/2017 ASSAY THYROID STIM HORMONE CPT-4: 83604 12/10/2017 COMPREHEN METABOLIC PANEL CPT-4: 42565 12/10/2017 COMPLETE CBC W/AUTO DIFF WBC CPT-4: 55654 12/10/2017 LIPID PANEL CPT-4: 53173 12/10/2017 A1C HPLC CPT-4: 61361 12/10/2017 CEFTRIAXONE SODIUM INJECTION CPT-4: J0696 12/10/2017 THER/PROPH/DIAG INJ SC/IM CPT-4: 34781 12/10/2017 CEFTRIAXONE SODIUM INJECTION CPT-4: J0696 12/07/2017 THER/PROPH/DIAG INJ SC/IM CPT-4: 19534 12/07/2017 DEXAMETHASONE SODIUM PHOS CPT-4: J1100 12/07/2017 THER/PROPH/DIAG INJ SC/IM CPT-4: 98856 12/07/2017 CEFTRIAXONE SODIUM INJECTION CPT-4: J0696 10/08/2017 THER/PROPH/DIAG INJ SC/IM CPT-4: 79156 10/08/2017 CEFTRIAXONE SODIUM INJECTION CPT-4: J0696 09/21/2017 THER/PROPH/DIAG INJ SC/IM CPT-4: 38112 09/21/2017 CEFTRIAXONE SODIUM INJECTION CPT-4: J0696 09/20/2017 THER/PROPH/DIAG INJ SC/IM CPT-4: 27422 09/20/2017 REMOVAL OF NAIL PLATE CPT-4: 25257 08/29/2017 THER/PROPH/DIAG INJ SC/IM CPT-4: 10970 08/29/2017 TRIAMCINOLONE ACET INJ NOS CPT-4: J3301 08/29/2017 CEFTRIAXONE SODIUM INJECTION CPT-4: J0696 08/29/2017 THER/PROPH/DIAG INJ SC/IM CPT-4: 15365 08/29/2017 DESTRUCT PREMALG LESION (Cryosurgery) CPT-4: 11548 ROUTINE VENIPUNCTURE CPT-4: 48883 06/27/2017 ASSAY OF FREE THYROXINE CPT-4: 73390 06/27/2017 ASSAY THYROID STIM HORMONE CPT-4: 46680 06/27/2017 COMPREHEN METABOLIC PANEL CPT-4: 27715 06/27/2017 COMPLETE CBC W/AUTO DIFF WBC CPT-4: 72217 06/27/2017 EXC TR-EXT B9+REECE 0.5 CM< CPT-4: 00742 01/24/2017 THER/PROPH/DIAG INJ SC/IM CPT-4: 78667 08/02/2016 DEXAMETHASONE SODIUM PHOS CPT-4: J1100 08/02/2016 DESTRUCT PREMALG LESION (Cryosurgery) CPT-4: 66791 EXC TR-EXT B9+REECE 0.5 CM< CPT-4: 08953 08/01/2016 AEROBIC WOUND CULTURE & STN CPT-4: 96999 07/06/2016 CEFTRIAXONE SODIUM INJECTION CPT-4: J0696 05/25/2016 THER/PROPH/DIAG INJ SC/IM CPT-4: 79443 05/25/2016 THER/PROPH/DIAG INJ SC/IM CPT-4: 45838 04/26/2016 DEXAMETHASONE SODIUM PHOS CPT-4: J1100 04/26/2016 CEFTRIAXONE SODIUM INJECTION CPT-4: J0696 04/26/2016 THER/PROPH/DIAG INJ SC/IM CPT-4: 61201 04/26/2016 THER/PROPH/DIAG INJ SC/IM CPT-4: 42417 02/09/2016 TRIAMCINOLONE ACET INJ NOS CPT-4: J3301 02/09/2016 URINALYSIS NONAUTO W/O SCOPE CPT-4: 16488 01/24/2016 URINE CULTURE/ COLONY COUNT CPT-4: 44298 01/24/2016 THER/PROPH/DIAG INJ SC/IM CPT-4: 45335 12/08/2015 TRIAMCINOLONE ACET INJ NOS CPT-4: J3301 12/08/2015 THER/PROPH/DIAG INJ SC/IM CPT-4: 01661 10/07/2015 TRIAMCINOLONE ACET INJ NOS CPT-4: J3301 10/07/2015 DESTRUCT PREMALG LESION (Cryosurgery) CPT-4: 56460 THER/PROPH/DIAG INJ SC/IM CPT-4: 49213 03/16/2015 METHYLPREDNISOLONE 40 MG INJ CPT-4: J1030 03/16/2015 DESTRUCT PREMALG LESION (Cryosurgery) CPT-4: 70177 THER/PROPH/DIAG INJ SC/IM CPT-4: 35513 09/11/2014 METHYLPREDNISOLONE 40 MG INJ CPT-4: J1030 09/11/2014 TRIAMCINOLONE ACET INJ NOS CPT-4: J3301 09/11/2014 CEFTRIAXONE SODIUM INJECTION CPT-4: J0696 09/11/2014 THER/PROPH/DIAG INJ SC/IM CPT-4: 61755 09/11/2014 ROUTINE VENIPUNCTURE CPT-4: 49047 08/27/2014 COMPREHEN METABOLIC PANEL CPT-4: 04532 08/27/2014 COMPLETE CBC W/AUTO DIFF WBC CPT-4: 92680 08/27/2014 LIPID PANEL CPT-4: 68851 08/27/2014 ROUTINE VENIPUNCTURE CPT-4: 49695 07/21/2014 ASSAY OF AMYLASE CPT-4: 36188 07/21/2014 ASSAY OF LIPASE CPT-4: 33800 07/21/2014 THER/PROPH/DIAG INJ SC/IM CPT-4: 73971 07/15/2014 TRIAMCINOLONE ACET INJ NOS CPT-4: J3301 07/15/2014 ROUTINE VENIPUNCTURE CPT-4: 41900 05/14/2014 ASSAY OF FREE THYROXINE CPT-4: 15093 05/14/2014 ASSAY THYROID STIM HORMONE CPT-4: 64914 05/14/2014 COMPREHEN METABOLIC PANEL CPT-4: 79799 05/14/2014 COMPLETE CBC W/AUTO DIFF WBC CPT-4: 50376 05/14/2014 LIPID PANEL CPT-4: 25909 05/14/2014 CEFTRIAXONE SODIUM INJECTION CPT-4: J0696 04/21/2014 THER/PROPH/DIAG INJ SC/IM CPT-4: 85431 04/21/2014 THER/PROPH/DIAG INJ SC/IM CPT-4: 16351 04/21/2014 TRIAMCINOLONE ACET INJ NOS CPT-4: J3301 04/21/2014 THER/PROPH/DIAG INJ SC/IM CPT-4: 26077 03/04/2014 METHYLPREDNISOLONE 40 MG INJ CPT-4: J1030 03/04/2014 TRIAMCINOLONE ACET INJ NOS CPT-4: J3301 03/04/2014 CEFTRIAXONE SODIUM INJECTION CPT-4: J0696 03/04/2014 THER/PROPH/DIAG INJ SC/IM CPT-4: 73177 03/04/2014 TDAP VACCINE 7 YRS/> IM CPT-4: 15273 02/27/2014 IMMUNIZATION ADMIN CPT-4: 43075 02/27/2014 DESTRUCT PREMALG LESION (Cryosurgery) CPT-4: 31973 DESTRUCT PREMALG LES 2-14 CPT-4: 41941 01/13/2014 THER/PROPH/DIAG INJ SC/IM CPT-4: 30901 10/21/2013 METHYLPREDNISOLONE 40 MG INJ CPT-4: J1030 10/21/2013 TRIAMCINOLONE ACET INJ NOS CPT-4: J3301 10/21/2013 CEFTRIAXONE SODIUM INJECTION CPT-4: J0696 08/27/2013 THER/PROPH/DIAG INJ SC/IM CPT-4: 33471 08/27/2013 THER/PROPH/DIAG INJ SC/IM CPT-4: 65483 08/27/2013 METHYLPREDNISOLONE 40 MG INJ CPT-4: J1030 08/27/2013 TRIAMCINOLONE ACET INJ NOS CPT-4: J3301 08/27/2013 THER/PROPH/DIAG INJ SC/IM CPT-4: 30770 06/23/2013 METHYLPREDNISOLONE 40 MG INJ CPT-4: J1030 06/23/2013 TRIAMCINOLONE ACET INJ NOS CPT-4: J3301 06/23/2013 THER/PROPH/DIAG INJ SC/IM CPT-4: 11955 05/26/2013 METHYLPREDNISOLONE 40 MG INJ CPT-4: J1030 05/26/2013 TRIAMCINOLONE ACET INJ NOS CPT-4: J3301 05/26/2013 ROUTINE VENIPUNCTURE CPT-4: 61711 03/05/2013 ASSAY OF FREE THYROXINE CPT-4: 85367 03/05/2013 ASSAY THYROID STIM HORMONE CPT-4: 50312 03/05/2013 COMPREHEN METABOLIC PANEL CPT-4: 21767 03/05/2013 COMPLETE CBC W/AUTO DIFF WBC CPT-4: 08883 03/05/2013 A1C GLYCOSYLATED HEMOGLOBIN TEST CPT-4: 15374 013 DRAIN/INJECT JOINT/BURSA CPT-4: 77427 12/04/2012 METHYLPREDNISOLONE 40 MG INJ CPT-4: J1030 12/04/2012 TRIAMCINOLONE ACET INJ NOS CPT-4: J3301 12/04/2012 CEFTRIAXONE SODIUM INJECTION CPT-4: J0696 11/21/2012 THER/PROPH/DIAG INJ SC/IM CPT-4: 30360 11/21/2012 THER/PROPH/DIAG INJ SC/IM CPT-4: 78789 10/14/2012 METHYLPREDNISOLONE 40 MG INJ CPT-4: J1030 10/14/2012 TRIAMCINOLONE ACET INJ NOS CPT-4: J3301 10/14/2012 URINALYSIS NONAUTO W/O SCOPE CPT-4: 36610 09/27/2012 ROUTINE VENIPUNCTURE CPT-4: 79587 09/25/2012 ASSAY OF FREE THYROXINE CPT-4: 46909 09/25/2012 ASSAY THYROID STIM HORMONE CPT-4: 19633 09/25/2012 COMPREHEN METABOLIC PANEL CPT-4: 53608 09/25/2012 COMPLETE CBC W/AUTO DIFF WBC CPT-4: 65236 09/25/2012 C-REACTIVE PROTEIN CPT-4: 71994 09/25/2012 THER/PROPH/DIAG INJ SC/IM CPT-4: 03093 08/29/2012 METHYLPREDNISOLONE 40 MG INJ CPT-4: J1030 08/29/2012 TRIAMCINOLONE ACET INJ NOS CPT-4: J3301 08/29/2012 DESTRUCT PREMALG LESION (Cryosurgery) CPT-4: 67520 THER/PROPH/DIAG INJ SC/IM CPT-4: 81304 05/06/2012 METHYLPREDNISOLONE 40 MG INJ CPT-4: J1030 05/06/2012 TRIAMCINOLONE ACET INJ NOS CPT-4: J3301 05/06/2012 VITAMIN B 12 FOLIC ACID CPT-4: 47374|95770 05/06/2012 RBC SED RATE AUTOMATED CPT-4: 72290 05/06/2012 ROUTINE VENIPUNCTURE CPT-4: 27880 05/06/2012 ASSAY OF FREE THYROXINE CPT-4: 63514 05/06/2012 ASSAY THYROID STIM HORMONE CPT-4: 90212 05/06/2012 COMPREHEN METABOLIC PANEL CPT-4: 01920 05/06/2012 COMPLETE CBC W/AUTO DIFF WBC CPT-4: 99728 05/06/2012 ASSAY OF BLOOD/URIC ACID CPT-4: 47241 05/06/2012 THER/PROPH/DIAG INJ SC/IM CPT-4: 95605 03/19/2012 KETOROLAC TROMETHAMINE INJ CPT-4: J1885 03/19/2012 KETOROLAC TROMETHAMINE INJ CPT-4: J1885 01/30/2012 THER/PROPH/DIAG INJ SC/IM CPT-4: 16669 01/30/2012 PROMETHAZINE HCL INJECTION CPT-4: J2550 01/30/2012 THER/PROPH/DIAG INJ SC/IM CPT-4: 68873 01/24/2012 METHYLPREDNISOLONE 40 MG INJ CPT-4: J1030 01/24/2012 TRIAMCINOLONE ACET INJ NOS CPT-4: J3301 01/24/2012 THER/PROPH/DIAG INJ SC/IM CPT-4: 68954 09/13/2011 KETOROLAC TROMETHAMINE INJ CPT-4: J1885 09/13/2011 THER/PROPH/DIAG INJ SC/IM CPT-4: 48629 09/13/2011 PROMETHAZINE HCL INJECTION CPT-4: J2550 09/13/2011 CEFTRIAXONE SODIUM INJECTION CPT-4: J0696 07/20/2011 THER/PROPH/DIAG INJ SC/IM CPT-4: 99564 07/20/2011 THER/PROPH/DIAG INJ SC/IM CPT-4: 17352 07/20/2011 METHYLPREDNISOLONE INJECTION CPT-4: J2930 07/20/2011 URINALYSIS NONAUTO W/O SCOPE CPT-4: 16810 05/09/2011 CEFTRIAXONE SODIUM INJECTION CPT-4: J0696 05/09/2011 THER/PROPH/DIAG INJ SC/IM CPT-4: 90430 05/09/2011 THER/PROPH/DIAG INJ SC/IM CPT-4: 69778 05/09/2011 PROMETHAZINE HCL INJECTION CPT-4: J2550 05/09/2011 HYDRATION IV INFUSION INIT CPT-4: 68205 05/09/2011 DESTRUCT PREMALG LESION (Cryosurgery) CPT-4: 68916 DESTRUCT PREMALG LES 2-14 CPT-4: 70267 07/19/2010 REMOVAL OF SKIN TAGS <W/15 CPT-4: 79336 05/30/2010 THER/PROPH/DIAG INJ SC/IM CPT-4: 60266 04/05/2010 CEFTRIAXONE SODIUM INJECTION CPT-4: J0696 04/05/2010 TRIAMCINOLONE ACET INJ NOS CPT-4: J3301 04/05/2010 METHYLPREDNISOLONE 40 MG INJ CPT-4: J1030 04/05/2010 THER/PROPH/DIAG INJ SC/IM CPT-4: 16105 04/05/2010 TRIAMCINOLONE ACET INJ NOS CPT-4: J3301 03/09/2010 METHYLPREDNISOLONE 40 MG INJ CPT-4: J1030 03/09/2010 THER/PROPH/DIAG INJ SC/IM CPT-4: 02139 03/09/2010 THER/PROPH/DIAG INJ SC/IM CPT-4: 48223 03/09/2010 CEFTRIAXONE SODIUM INJECTION CPT-4: J0696 03/09/2010 [...] 1: 132/80 Code: 8480-6 BMI: 35.8 Code: 36681-0 Heart Rate 1: 88 bpm Height: 5'4" Respiratory Rate: 20 bpm SpO2: 95% Tempera ture: 36.9 (C) / 98.5 (F) Weight: 210 lbs 05/28/2019 Blood Pressure 1: 126/82 Code: 8480-6 BMI: 35.0 Code: 78637-1 Heart Rate 1: 88 bpm Height: 5'4" [...] 1: 128/90 Code: 8480-6 BMI: 37.2 Code: 92846-9 Heart Rate 1: 84 bpm Height: 5'4" Respiratory Rate: 20 bpm SpO2: 95% Tempera ture: 36.6 (C) / 97.8 (F) Weight: 217 lbs 08/27/2018 Blood Pressure 1: 128/88 Code: 8480-6 BMI: 38.3 Code: 47491-0 Heart Rate 1: 84 bpm Height: 5'4" [...] 1: 119/72 Code: 8480-6 BMI: 37.4 Code: 93322-1 Heart Rate 1: 82 bpm Height: 5'4" Respiratory Rate: 12 bpm SpO2: 94% Tempera ture: 35.2 (C) / 95.4 (F) Weight: 218 lbs 12/18/2017 Blood Pressure 1: 128/86 Code: 8480-6 BMI: 37.8 Code: 03075-1 Heart Rate 1: 84 bpm Height: 5'4" [...] 1: 128/82 Code: 8480-6 BMI: 35.5 Code: 24394-4 Heart Rate 1: 84 bpm Height: 5'4" [...] 1: 128/82 Code: 8480-6 BMI: 30.2 Code: 97497-2 Heart Rate 1: 80 bpm Height: 5'4" [...] 1: 128/86 Code: 8480-6 BMI: 32.8 Code: 01084-9 Heart Rate 1: 66 bpm Height: 5'4" Respiratory Rate: 18 bpm Temperature: 36 .3 (C) / 97.3 (F) Weight: 191 lbs 06/23/2013 Blood Pressure 1: 132/94 Code: 8480-6 BMI: 34.0 Code: 49437-2 Heart Rate 1: 84 bpm Height: 5'4" Respiratory Rate: 20 bpm Temperature: 36 .8 (C) / 98.2 (F) Weight: 198 lbs 05/26/2013 Blood Pressure 1: 114/80 Code: 8480-6 BMI: 35.0 Code: 30951-8 Heart Rate 1: 80 bpm Height: 5'4" Respiratory Rate: 20 bpm Temperature: 36 .4 (C) / 97.6 (F) Weight: 204 lbs 04/16/2013 Blood Pressure 1: 114/82 Code: 8480-6 BMI: 36.7 Code: 27449-0 Heart Rate 1: 84 bpm Height: 5'4" Respiratory Rate: 20 bpm Temperature: 36 .7 (C) / 98.0 (F) Weight: 214 lbs 03/05/2013 Blood Pressure 1: 136/90 Code: 8480-6 BMI: 37.1 Code: 51640-8 Heart Rate 1: 84 bpm Height: 5'4" [...] 1: 168/114 Code: 8480-6 BMI: 36.2 Code: 04778-3 Heart Rate 1: 104 bpm Height: 5'4" Respiratory Rate: 20 bpm Temperature: 36 .8 (C) / 98.2 (F) Weight: 211 lbs 11/22/2012 Blood Pressure 1: 128/90 Code: 8480-6 Heart Rate 1: 88 bpm Respiratory Rate: 20 bpm SpO2: 96% Temperature: 36.8 (C) / 98.2 (F) 11/21/2012 Blood Pressure 1: 146/100 Code: 8480-6 BMI: 35.7 Code: 39944-7 Heart Rate 1: 96 bpm Height: 5'4" [...] 1: 138/100 Code: 8480-6 BMI: 35.7 Code: 82739-2 Heart Rate 1: 96 bpm Height: 5'4" Respiratory Rate: 20 bpm Temperature: 36 .8 (C) / 98.2 (F) Weight: 208 lbs 05/06/2012 Blood Pressure 1: 154/102 Code: 8480-6 BMI: 34.7 Code: 29679-8 Heart Rate 1: 116 bpm Height: 5'4" Respiratory Rate: 20 bpm Temperature: 36 .8 (C) / 98.2 (F) Weight: 202 lbs 04/03/2012 Blood Pressure 1: 134/94 Code: 8480-6 BMI: 34.8 Code: 92508-1 Heart Rate 1: 108 bpm Height: 5'4" Respiratory Rate: 20 bpm Temperature: 36 .8 (C) / 98.2 (F) Weight: 203 lbs 03/19/2012 Blood Pressure 1: 148/106 Code: 8480-6 BMI: 35.0 Code: 58531-1 Heart Rate 1: 100 bpm Height: 5'4" Respiratory Rate: 20 bpm Temperature: 36 .6 (C) / 97.9 (F) Weight: 204 lbs 02/22/2012 Blood Pressure 1: 146/94 Code: 8480-6 He art Rate 1: 88 bpm 02/21/2012 Blood Pressure 1: 172/120 Code: 8480-6 B lood Pressure 2: 152/106 Code: 8480-6 Heart Rate 1: 116 bpm 02/20/2012 Blood Pressure 1: 160/100 Code: 8480-6 BMI: 32.0 Code: 81975-2 Heart Rate 1: 84 bpm Height: 5'7" Temperature: 36.5 (C) / 97.7 (F) Weight: 204 lbs 01/30/2012 Blood Pressure 1: 152/110 Code: 8480-6 BMI: 32.0 Code: 62835-9 Heart Rate 1: 116 bpm Height: 5'7" Respiratory Rate: 20 bpm Temperature: 37 .0 (C) / 98.6 (F) Weight: 204 lbs 01/24/2012 Blood Pressure 1: 146/100 Code: 8480-6 BMI: 32.0 Code: 50950-7 Heart Rate 1: 100 bpm Height: 5'7" Respiratory Rate: 20 bpm Temperature: 36 .7 (C) / 98.0 (F) Weight: 204 lbs 01/10/2012 Blood Pressure 1: 156/94 Code: 8480-6 BMI: 32.6 Code: 23796-2 Heart Rate 1: 72 bpm Height: 5'7" Respiratory Rate: 20 bpm Temperature: 36 .8 (C) / 98.2 (F) Weight: 208 lbs 12/11/2011 Blood Pressure 1: 146/100 Code: 8480-6 Heart Rat e 1: 116 bpm Height: 5'7" Respiratory Rate: 20 bpm Temperature: 36.9 (C) / 98.4 (F) We ight: 11/09/2011 Blood Pressure 1: 148/96 Code: 8480-6 BMI: 32.1 Code: 11982-8 Heart Rate 1: 116 bpm Height: 5'7" Respiratory Rate: 20 bpm Temperature: 36 .7 (C) / 98.0 (F) Weight: 205 lbs 09/13/2011 Blood Pressure 1: 126/88 Code: 8480-6 Heart Rate 1: 88 bpm Height: 5'7" Respiratory Rate: 20 bpm Temperature: 36.9 (C) / 98.4 (F) We ight: 08/31/2011 Blood Pressure 1: 118/82 Code: 8480-6 BMI: 32.0 Code: 60671-3 Heart Rate 1: 80 bpm Height: 5'7" Temperature: 36.4 (C) / 97.6 (F) Weight: 204 lbs 07/06/2011 Blood Pressure 1: 128/86 Code: 8480-6 BMI: 30.9 Code: 15925-4 Heart Rate 1: 92 bpm Height: 5'7" Respiratory Rate: 20 bpm Temperature: 36 .9 (C) / 98.4 (F) Weight: 197 lbs 06/06/2011 Blood Pressure 1: 112/74 Code: 8480-6 BMI: 31.0 Code: 85939-3 Heart Rate 1: 72 bpm Height: 5'7" [...] 1: 128/92 Code: 8480-6 BMI: 33.6 Code: 32120-3 Heart Rate 1: 104 bpm Height: 5'4" [...] Check-up Encounters Encounter Performer Location Codes Date ([id number]) OFFICE/OUTPATIENT VISIT EST Diagnosis: Essential (primary) hypertension[ICD10: I10] Diagnosis: Type 2 diabetes mellitus with hyperglycemia[ICD10: E11.65] Diagnosis: Allergic rhinitis[ICD10: J30.9] María Elena JUARES [employer] CPT-4: 28181 01/13/2020 ([id number]) OFFICE/OUTPATIENT VISIT EST Diagnosis: Type 2 diabetes mellitus with hyperglycemia[ICD10: E11.65] María Elena [facility]ES [employer] [facility] CPT-4: 55339 11/20/2019 ([id number]) OFFICE/OUTPATIENT VISIT EST Diagnosis: Ingrowing nail[ICD10: L60.0] Diagnosis: Type 2 diabetes mellitus with hyperglycemia[ICD10: E11.65] Kathleen JUARES [employer] [facility] [facility] [employer] CPT-4: 71074 10/07/2019 ([id number]) OFFICE/OUTPATIENT VISIT EST Diagnosis: DM w/o complication type II, uncontrolled[ICD10: E11.65] Diagnosis: Hypertriglyceridemia[ICD10: E78.1] Diagnosis: Essential hypertension[ICD10: I10] María Elena JEAN Fabiola APPIAH DO [facility] CPT-4: 01849 09/30/2019 ([id number]) NURSE/OUTPATIENT VISIT EST Diagnosis: Essential (primary) hypertension[ICD10: I10] Diagnosis: Cervicalgia[ICD10: M54.2] Diagnosis: Hyperglycemia, unspecified[ICD10: R73.9] Diagnosis: Mixed hyperlipidemia[ICD10: E78.2] María Elena JEAN Fabiola APPIAH [employer] [facility] CPT-4: 25242 09/29/2019 ([id number]) OFFICE/OUTPATIENT VISIT EST Diagnosis: Essential (primary) hypertension[ICD10: I10] Diagnosis: Fall from bed, sequela[ICD10: W06.XXXS] María Elena REED LucioJj TD [facility] CPT-4: 77800 05/28/2019 ([id number]) NURSE/OUTPATIENT VISIT EST Diagnosis: Essential (primary) hypertension[ICD10: I10] María Elena MONTEROQUELINE LucioJj TD [facility] CPT-4: 60493 05/19/2019 ([id number]) OFFICE/OUTPATIENT VISIT EST Diagnosis: Essential (primary) hypertension[ICD10: I10] Diagnosis: Type 2 diabetes mellitus with hyperglycemia[ICD10: E11.65] Diagnosis: Intervertebral disc disorders with radiculopathy, 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] Diagnosis: Hormone replacement therapy[ICD10: Z79.890] María Elena JUARES LucioJj [facility] CPT-4: 28696 01/22/2019 ([id number]) OFFICE/OUTPATIENT VISIT EST Diagnosis: Essential (primary) hypertension[ICD10: I10] Diagnosis: Type 2 diabetes mellitus with hyperglycemia[ICD10: E11.65] María Elenagael MONTEROQUELINE LucioJj TD [facility] CPT-4: 11080 09/30/2018 ([id number]) OFFICE/OUTPATIENT VISIT EST Diagnosis: Pain in left elbow[ICD10: M25.522] Diagnosis: Acute stress reaction[ICD10: F43.0] Diagnosis: Primary insomnia[ICD10: F51.01] Diagnosis: Abnormal weight gain[ICD10: R63.5] María Elenagael [facility] CPT-4: 91793 08/27/2018 ([id number]) OFFICE/OUTPATIENT VISIT EST Diagnosis: Acute recurrent sinusitis, unspecified[ICD10: J01.91] Diagnosis: Follicular disorder, unspecified[ICD10: L73.9] Diagnosis: Tinea corporis[ICD10: B35.4] María Elena [facility] CPT-4: 29237 08/09/2018 ([id number]) OFFICE/OUTPATIENT VISIT EST Diagnosis: Tinea corporis[ICD10: B35.4] Diagnosis: Anxiety disorder, unspecified[ICD10: F41.9] Diagnosis: Menopausal and female climacteric states[ICD10: N95.1] María Elena [facility] CPT-4: 21045 07/22/2018 ([id number]) NURSE/OUTPATIENT VISIT EST Diagnosis: Cellulitis of right toe[ICD10: L03.031] [facility] 33096 06/19/2018 ([id number]) OFFICE/OUTPATIENT VISIT EST Diagnosis: Cellulitis of right toe[ICD10: L03.031] Kathleen [facility] CPT-4: 75021 06/17/2018 ([id number]) OFFICE/OUTPATIENT VISIT EST Diagnosis: Migraine without aura, intractable, without status migrainosus[ICD10: G43.019] Diagnosis: Zoster without complications[ICD10: B02.9] Kathleen [facility] CPT-4: 72521 05/16/2018 ([id number]) OFFICE/OUTPATIENT VISIT EST Diagnosis: Cellulitis of right lower limb[ICD10: L03.115] Kathleen [facility] CPT-4: 92406 03/20/2018 ([id number]) OFFICE/OUTPATIENT VISIT EST Diagnosis: Cellulitis of right lower limb[ICD10: L03.115] Kathleen [facility] CPT-4: 51885 03/18/2018 ([id number]) OFFICE/OUTPATIENT VISIT EST Diagnosis: Cellulitis of right lower limb[ICD10: L03.115] Kathleen APPIAH DO [facility] CPT-4: 41455 03/15/2018 ([id number]) OFFICE/OUTPATIENT VISIT EST Diagnosis: Acute sinusitis, unspecified[ICD10: J01.90] Kathleen APPIAH DO [facility] CPT-4: 33997 02/11/2018 ([id number]) NURSE/OUTPATIENT VISIT EST Diagnosis: Otitis media, unspecified, right ear[ICD10: H66.91] María Elena APPIAH DO [facility] CPT-4: 56841 02/01/2018 ([id number]) OFFICE/OUTPATIENT VISIT EST Diagnosis: Acute suppurative otitis media without spontaneous rupture of ear drum, left ear[ICD10: H66.002] Diagnosis: Abnormal weight gain[ICD10: R63.5] Diagnosis: Intervertebral disc disorders with radiculopathy, 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] Kathleen APPIAH DO [facility] CPT-4: 99 214 01/30/2018 ([id number]) PREV VISIT EST AGE 40-64 Diagnosis: Encounter for general adult medical examination without abnormal findings[ICD10: Z00.00] Diagnosis: Essential (primary) hypertension[ICD10: I10] Diagnosis: Mixed hyperlipidemia[ICD10: E78.2] Diagnosis: Type 2 diabetes mellitus with hyperglycemia[ICD10: E11.65] Diagnosis: 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] María Elena APPIAH DO [facility] CPT-4: 06948 12/18/2017 ([id number]) OFFICE/OUTPATIENT VISIT EST Diagnosis: Cellulitis of right toe[ICD10: L03.031] Diagnosis: Mixed hyperlipidemia[ICD10: E78.2] Diagnosis: Essential (primary) hypertension[ICD10: I10] Diagnosis: Hyperglycemia, unspecified[ICD10: R73.9] Diagnosis: Nontoxic goiter, 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] María Elena APPIAH DO [facility] CPT-4: 17812 12/10/2017 ([id number]) OFFICE/OUTPATIENT VISIT EST Diagnosis: Cellulitis of right toe[ICD10: L03.031] Diagnosis: Acute sinusitis, unspecified[ICD10: J01.90] Kathleen APPIAH DO [facility] CPT-4: 55532 12/07/2017 OFFICE/OUTPATIENT VISIT EST Diagnosis: Acute maxillary sinusitis, unspecified[ICD10: J01.00] Kathleen APPIAH DO [facility] CPT-4: 09408 10/08/2017 ([id number]) OFFICE/OUTPATIENT VISIT EST Diagnosis: Cellulitis of left toe[ICD10: L03.032] María Elena APPIAH DO [facility] CPT-4: 05405 09/21/2017 ([id number]) OFFICE/OUTPATIENT VISIT EST Diagnosis: Insomnia, unspecified[ICD10: G47.00] Diagnosis: Major depressive disorder, single episode, unspecified[ICD10: F32.9] Diagnosis: Anxiety disorder, unspecified[ICD10: F41.9] Diagnosis: Cellulitis of left toe[ICD10: L03.032] Diagnosis: Snoring[ICD10: R06.83] Kathleen APPIAH DO [facility] CPT-4: 60818 09/20/2017 ([id number]) OFFICE/OUTPATIENT VISIT EST Diagnosis: Cellulitis of left toe[ICD10: L03.032] María Elena APPIAH DO [facility] CPT-4: 05395 07/19/2017 OFFICE/OUTPATIENT VISIT EST Diagnosis: Chronic sinusitis, unspecified[ICD10: J32.9] Diagnosis: Generalized hyperhidrosis[ICD10: R61] Kathleen APPIAH DO [facility] CPT-4: 57488 06/27/2017 ([id number]) OFFICE/OUTPATIENT VISIT EST Diagnosis: Intervertebral disc disorders with radiculopathy, 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] Diagnosis: Primary insomnia[ICD10: F51.01] Diagnosis: Other fatigue[ICD10: R53.83] María Elena APPIAH DO [facility] CPT-4: 21953 04/10/2017 ([id number]) OFFICE/OUTPATIENT VISIT EST Diagnosis: Primary insomnia[ICD10: F51.01] Diagnosis: Localized edema[ICD10: R60.0] Diagnosis: 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] María Elena APPIAH DO [employer] CPT-4: 97155 12/13/2016 ([id number]) OFFICE/OUTPATIENT VISIT EST Diagnosis: Primary insomnia[ICD10: F51.01] Diagnosis: Cyanosis[ICD10: R23.0] María Elena Bazzi [employer] CPT-4: 80660 11/01/2016 ([id number]) PREV VISIT EST AGE 40-64 Diagnosis: Encounter for gynecological examination (general) (routine) without abnormal findings[ICD10: Z01.419] Diagnosis: Encounter for routine child health examination without abnormal findings[ICD10: Z00.129] María Elena APPIAH [employer] CPT-4: 77045 10/17/2016 ([id number]) OFFICE/OUTPATIENT VISIT EST Diagnosis: Other seasonal allergic rhinitis[ICD10: J30.2] María Elena APPIAH [employer] CPT-4: 06602 10/10/2016 ([id number]) OFFICE/OUTPATIENT VISIT EST Diagnosis: Pain in left arm[ICD10: M79.602] Diagnosis: Contact with and (suspected) exposure to potentially hazardous body fluids[ICD10: Z77.21] Diagnosis: 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, 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] Diagnosis: Unspecified open wound, right foot, sequela[ICD10: S91.301S] María Elena APPIAH DO [employer] CPT-4: 83069 09/19/2016 ([id number]) OFFICE/OUTPATIENT VISIT EST Diagnosis: Chronic sinusitis, unspecified[ICD10: J32.9] Diagnosis: Allergic rhinitis due to pollen[ICD10: J30.1] María Elena APPIAH [employer] CPT-4: 11630 08/24/2016 ([id number]) OFFICE/OUTPATIENT VISIT EST Diagnosis: Acute bronchitis, unspecified[ICD10: J20.9] María Elena APPIAH DO [facility] CPT-4: 08774 08/16/2016 ([id number]) OFFICE/OUTPATIENT VISIT EST Diagnosis: Otitis media, unspecified, right ear[ICD10: H66.91] Diagnosis: Acute bronchitis, unspecified[ICD10: J20.9] María Elena APPIAH DO [facility] CPT-4: 83320 08/10/2016 ([id number]) OFFICE/OUTPATIENT VISIT EST Diagnosis: Acute recurrent sinusitis, unspecified[ICD10: J01.91] Diagnosis: Allergic rhinitis due to pollen[ICD10: J30.1] María Elena APPIAH DO [facility] CPT-4: 31579 08/02/2016 ([id number]) OFFICE/OUTPATIENT VISIT EST Diagnosis: Pain in unspecified joint[ICD10: M25.50] María Elena APPIAH DO [facility] CPT-4: 59904 07/27/2016 OFFICE/OUTPATIENT VISIT EST Diagnosis: 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] Diagnosis: Acute recurrent sinusitis, unspecified[ICD10: J01.91] Diagnosis: Other fatigue[ICD10: R53.83] Diagnosis: Primary insomnia[ICD10: F51.01] Diagnosis: Pain in unspecified joint[ICD10: M25.50] María Elena APPIAH [employer] [facility] CPT-4: 55555 07/20/2016 ([id number]) OFFICE/OUTPATIENT VISIT EST Diagnosis: Blister (nonthermal), left great toe, initial encounter[ICD10: S90.422A] Loan APPIAH [employer] [facility] CPT-4: 94441 ([id number]) OFFICE/OUTPATIENT VISIT EST Diagnosis: Acute recurrent sinusitis, unspecified[ICD10: J01.91] María Elena APPIAH DO [facility] CPT-4: 48784 05/25/2016 ([id number]) OFFICE/OUTPATIENT VISIT EST Diagnosis: Acute sinusitis, unspecified[ICD10: J01.90] María Elenamarcella APPIAH DO [facility] CPT-4: 78632 04/26/2016 ([id number]) OFFICE/OUTPATIENT VISIT EST Diagnosis: Flushing[ICD10: R23.2] Diagnosis: Primary insomnia[ICD10: F51.01] María Elena APPIAH DO [facility] CPT-4: 99895 03/02/2016 ([id number]) OFFICE/OUTPATIENT VISIT EST Diagnosis: Other seasonal allergic rhinitis[ICD10: J30.2] Loan APPIAH DO [facility] CPT-4: 79435 02/09/2016 ([id number]) OFFICE/OUTPATIENT VISIT EST Diagnosis: Primary insomnia[ICD10: F51.01] Diagnosis: Urinary tract infection, site not specified[ICD10: N39.0] María Elena APPIAH DO [facility] CPT-4: 00441 01/24/2016 ([id number]) OFFICE/OUTPATIENT VISIT EST Diagnosis: Other specified disorders of Eustachian tube, bilateral[ICD10: H69.83] Diagnosis: Allergic rhinitis, unspecified[ICD10: J30.9] Loan APPIAH DO [facility] CPT-4: 38659 12/23/2015 ([id number]) OFFICE/OUTPATIENT VISIT EST Diagnosis: Acute recurrent sinusitis, unspecified[ICD10: J01.91] Diagnosis: 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] Diagnosis: Allergic rhinitis, unspecified[ICD10: J30.9] María Elena APPIAH DO [facility] CPT-4: 52913 12/08/2015 ([id number]) OFFICE/OUTPATIENT VISIT EST Diagnosis: Allergic rhinitis, unspecified[ICD10: J30.9] Diagnosis: Pain in unspecified joint[ICD10: M25.50] María Elena APPIAH DO [facility] CPT-4: 05840 10/07/2015 ([id number]) OFFICE/OUTPATIENT VISIT EST Diagnosis: Essential (primary) hypertension[ICD10: I10] María Elena APPIAH DO [facility] CPT-4: 24538 10/06/2015 OFFICE/OUTPATIENT VISIT EST Diagnosis: Localized enlarged lymph nodes[ICD10: R59.0] Diagnosis: Local infection of the skin and subcutaneous tissue, unspecified[ICD10: L08.9] June APPIAH DO [facility] CPT- 4: 46963 09/14/2015 ([id number]) OFFICE/OUTPATIENT VISIT EST Diagnosis: Essential (primary) hypertension[ICD10: I10] Diagnosis: Actinic keratosis[ICD10: L57.0] María Elena APPIAH DO [facility] CPT-4: 06579 09/07/2015 ([id number]) OFFICE/OUTPATIENT VISIT EST Diagnosis: Essential (primary) hypertension[ICD10: I10] Diagnosis: Acute stress reaction[ICD10: F43.0] María Elena APPIAH [facility] CPT-4: 18229 08/18/2015 ([id number]) OFFICE/OUTPATIENT VISIT EST Diagnosis: Essential (primary) hypertension[ICD10: I10] María Elena APPIAH DO [facility] CPT-4: 63177 07/07/2015 ([id number]) OFFICE/OUTPATIENT VISIT EST Diagnosis: Essential (primary) hypertension[ICD10: I10] María Elena APPIAH DO [facility] CPT-4: 88406 06/24/2015 ([id number]) OFFICE/OUTPATIENT VISIT EST Diagnosis: Essential (primary) hypertension[ICD10: I10] María Elena APPIAH DO [facility] CPT-4: 21536 06/21/2015 ([id number]) OFFICE/OUTPATIENT VISIT EST Diagnosis: Essential (primary) hypertension[ICD10: I10] Diagnosis: Mixed hyperlipidemia[ICD10: E78.2] Diagnosis: Acute stress reaction[ICD10: F43.0] Diagnosis: Primary insomnia[ICD10: F51.01] María Elena APPIAH DO [facility] CPT-4: 83763 06/16/2015 ([id number]) OFFICE/OUTPATIENT VISIT EST Diagnosis: INSOMNIA NOS[ICD9: 780.52] Diagnosis: HYPERTENSION[ICD9: 401.9] Diagnosis: Stress reaction[ICD9: 308.9] María Elena APPIAH DO [facility] CPT-4: 62581 06/02/2015 ([id number]) OFFICE/OUTPATIENT VISIT EST Diagnosis: HYPERTENSION[ICD9: 401.9] Diagnosis: Stress reaction[ICD9: 308.9] María Elena APPIAH DO [facility] CPT-4: 14311 05/20/2015 ([id number]) OFFICE/OUTPATIENT VISIT EST Diagnosis: Skin lesion[ICD9: 709.9] 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] María Elena APPIAH DO [facility] CPT-4: 68855 05/10/2015 ([id number]) OFFICE/OUTPATIENT VISIT EST Diagnosis: SINUSITIS, ACUTE[ICD9: 461.9] Diagnosis: ALLERGIC RHINITIS[ICD9: 477.9] Diagnosis: DERMATITIS NOS[ICD9: 692.9] María Elena [facility] CPT-4: 37726 03/16/2015 OFFICE/OUTPATIENT VISIT EST Diagnosis: Otitis media[ICD9: 382.9] Diagnosis: SINUSITIS, ACUTE[ICD9: 461.9] June Felixdaniella APPIAH DO [facility] CPT-4: 25111 09/11/2014 ([id number]) OFFICE/OUTPATIENT VISIT EST Diagnosis: HYPERLIPIDEMIA NEC/NOS[ICD9: 272.4] María Elena APPIAH DO [facility] CPT-4: 20447 08/31/2014 ([id number]) OFFICE/OUTPATIENT VISIT EST Diagnosis: - I - HYPERTENSION[ICD9: 401.9] Diagnosis: HYPERLIPIDEMIA NEC/NOS[ICD9: 272.4] María Elena APPIAH DO [facility] CPT-4: 61415 08/27/2014 ([id number]) OFFICE/OUTPATIENT VISIT EST Diagnosis: ABDOMINAL PAIN[ICD9: 789.00] Diagnosis: DYSPEPSIA[ICD9: 536.8] Diagnosis: Thoracic back pain[ICD9: 724.1] María Elena APPIAH DO [facility] CPT-4: 19473 07/21/2014 ([id number]) OFFICE/OUTPATIENT VISIT EST Diagnosis: ALLERGIC RHINITIS[ICD9: 477.9] María Elena APPIAH [facility] CPT-4: 40076 07/15/2014 ([id number]) OFFICE/OUTPATIENT VISIT EST Diagnosis: EDEMA[ICD9: 782.3] Diagnosis: Chronic insomnia[ICD9: 780.52] María Elena APPIAH [facility] CPT-4: 78005 05/18/2014 ([id number]) OFFICE/OUTPATIENT VISIT EST Diagnosis: Thyromegaly[ICD9: 240.9] Diagnosis: - I - HYPERTENSION[ICD9: 401.9] Diagnosis: ROUTINE MEDICAL EXAM[ICD9: V70.0] Diagnosis: EDEMA[ICD9: 782.3] María Elena APPIAH [facility] CPT-4: 26785 05/14/2014 OFFICE/OUTPATIENT VISIT EST Diagnosis: BRONCHITIS, ACUTE[ICD9: 466.0] Diagnosis: SINUSITIS, ACUTE[ICD9: 461.9] María Elena APPIAH [facility] CPT-4: 68112 04/21/2014 OFFICE/OUTPATIENT VISIT EST Diagnosis: SINUSITIS, ACUTE[ICD9: 461.9] June Flores [facility]: 15854 03/04/2014 ([id number]) OFFICE/OUTPATIENT VISIT EST Diagnosis: VACCINE FOR TDAP[ICD10: Z23] María Elena APPIAH [facility] CPT-4: 73045 02/27/2014 ([id number]) OFFICE/OUTPATIENT VISIT EST Diagnosis: Seborrheic keratoses, inflamed[ICD9: 702.11] Diagnosis: ACTINIC KERATOSIS[ICD9: 702.0] Diagnosis: INSOMNIA NOS[ICD9: 780.52] [facility]: 60732 01/13/2014 OFFICE/OUTPATIENT VISIT EST 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] Diagnosis: ALLERGIC RHINITIS[ICD9: 477.9] Diagnosis: Serous otitis media[ICD9: 381.4] María Elena ValdesJj [facility] CPT-4: 26313 12/24/2013 ([id number]) OFFICE/OUTPATIENT VISIT EST Diagnosis: SINUSITIS, ACUTE[ICD9: 461.9] Diagnosis: ALLERGIC RHINITIS[ICD9: 477.9] 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] María Elena APPIAH [facility] CPT-4: 12161 11/12/2013 ([id number]) OFFICE/OUTPATIENT VISIT EST Diagnosis: ALLERGIC RHINITIS[ICD9: 477.9] Diagnosis: SINUSITIS, ACUTE[ICD9: 461.9] María Elena APPIAH [facility] CPT-4: 98502 10/21/2013 ([id number]) OFFICE/OUTPATIENT VISIT EST Diagnosis: ASYMPTOMATIC VARICOSE VEINS[ICD9: 454.9] Diagnosis: INSOMNIA NOS[ICD9: 780.52] María Elena [facility] CPT-4: 26842 09/22/2013 OFFICE/OUTPATIENT VISIT EST Diagnosis: SINUSITIS, ACUTE[ICD9: 461.9] June APPIAH [facility] CPT-4: 60905 08/27/2013 ([id number]) OFFICE/OUTPATIENT VISIT EST Diagnosis: CEPHALGIA[ICD9: 784.0] Diagnosis: CEPHALGIA, TENSION[ICD9: 307.81] 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] María Elena APPIAH [facility] CPT-4: 97805 08/04/2013 ([id number]) OFFICE/OUTPATIENT VISIT EST Diagnosis: Cervicalgia[ICD9: 723.1] Diagnosis: SPASM OF MUSCLE[ICD9: 728.85] Diagnosis: CEPHALGIA, TENSION[ICD9: 307.81] María Elena [facility]IAH [facility] CPT-4: 20462 07/23/2013 ([id number]) OFFICE/OUTPATIENT VISIT EST 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] Diagnosis: ALLERGIC RHINITIS[ICD9: 477.9] María Elena APPIAH [facility] CPT-4: 81682 06/23/2013 ([id number]) OFFICE/OUTPATIENT VISIT EST Diagnosis: ALLERGIC RHINITIS[ICD9: 477.9] Diagnosis: ACUTE SEROUS OTITIS MEDIA[ICD9: 381.01] 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] María Elena JUARES LucioJj [facility] CPT-4: 12359 05/26/2013 ([id number]) OFFICE/OUTPATIENT VISIT EST Diagnosis: HYPERTENSION[ICD9: 401.9] Diagnosis: EDEMA[ICD9: 782.3] Diagnosis: Serous otitis media[ICD9: 381.4] María Elena JUARES LucioJj [facility] CPT-4: 76082 04/16/2013 ([id number]) OFFICE/OUTPATIENT VISIT EST Diagnosis: SINUSITIS, ACUTE[ICD9: 461.9] Diagnosis: ALLERGIC RHINITIS[ICD9: 477.9] Diagnosis: EDEMA[ICD9: 782.3] Diagnosis: Thyromegaly[ICD9: 240.9] Diagnosis: MALAISE AND FATIGUE[ICD9: 780.79] María Elena Lopez LucioJj MARIVEL [employer] [facility] CPT-4: 43878 03/05/2013 ([id number]) OFFICE/OUTPATIENT VISIT EST Diagnosis: PAIN, LOWER BACK[ICD9: 724.2] Diagnosis: SPASM OF MUSCLE[ICD9: 728.85] María Elena JUARES [facility]Jj [facility] CPT-[facility]: 79847 12/23/2012 OFFICE/OUTPATIENT VISIT EST Diagnosis: Low back pain[ICD9: 724.2] Lashawn Hicks [facility] CPT-[facility]: 92697 12/16/2012 ([id number]) OFFICE/OUTPATIENT VISIT EST Diagnosis: PAIN, LOWER BACK[ICD9: 724.2] Diagnosis: SCIATICA[ICD9: 724.3] Diagnosis: Lumbar herniated disc[ICD9: 722.10] María Elena COLON LucioJj MARIVEL [employer] [facility] CPT-4: 01440 12/09/2012 ([id number]) OFFICE/OUTPATIENT VISIT EST Diagnosis: PAIN, LOWER BACK[ICD9: 724.2] Diagnosis: SCIATICA[ICD9: 724.3] Diagnosis: LUMBAR DISC DISPLACEMENT[ICD9: 722.10] María Elena MONTEROLui APPIAH DO [facility] CPT-4: 59932 12/04/2012 OFFICE/OUTPATIENT VISIT EST Diagnosis: Pneumonia[ICD9: 486] Mary SerranoRustam MARÍA ELENA APPIAH DO [facility] CPT-4: 84035 11/22/2012 ([id number]) OFFICE/OUTPATIENT VISIT EST Diagnosis: PNEUMONIA, ORGANISM[ICD9: 486] Diagnosis: Exacerbation of RAD (reactive airway disease)[ICD9: 493.92] María Elena Ortamaryjane MARÍA ELENA APPIAH DO [facility] CPT-4: 76947 11/21/2012 OFFICE/OUTPATIENT VISIT EST Diagnosis: HYPERTENSION[ICD9: 401.9] Diagnosis: Cephalgia[ICD9: 784.0] Lashawn Eckert MARÍA ELENA APPIAH DO [facility] CPT-4: 24859 10/29/2012 ([id number]) OFFICE/OUTPATIENT VISIT EST Diagnosis: MALAISE AND FATIGUE[ICD9: 780.79] Diagnosis: ARTHRALGIA-MULTIPLE SITES[ICD9: 719.49] María Elena Seamusmindimaryjane APPIAH DO [facility] CPT-4: 54493 10/14/2012 ([id number]) OFFICE/OUTPATIENT VISIT EST Diagnosis: URINARY FREQUENCY[ICD9: 788.41] María Elena Td APPIAH DO [facility] CPT-4: 54250 09/27/2012 ([id number]) OFFICE/OUTPATIENT VISIT EST Diagnosis: MALAISE AND FATIGUE[ICD9: 780.79] Diagnosis: ARTHRALGIA-MULTIPLE SITES[ICD9: 719.49] María Elena Seamusabbey KYLAH APPIAH DO [facility] CPT-4: 01574 09/25/2012 ([id number]) OFFICE/OUTPATIENT VISIT EST Diagnosis: SINUSITIS, ACUTE[ICD9: 461.9] 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] María Elena Seamusabbey MARÍA ELENA APPIAH DO [facility] CPT-4: 57864 08/29/2012 OFFICE/OUTPATIENT VISIT EST Diagnosis: ACTINIC KERATOSIS[ICD9: 702.0] Diagnosis: Inflamed seborrheic keratosis[ICD9: 702.11] Diagnosis: Skin cancer of face[ICD9: 173.31] Diagnosis: HYPERTENSION[ICD9: 401.9] María Elena [facility] CPT-4: 69278 08/12/2012 ([id number]) OFFICE/OUTPATIENT VISIT EST Diagnosis: ARTHRALGIA-MULTIPLE SITES[ICD9: 719.49] Diagnosis: GOUT[ICD9: 274.9] Diagnosis: HYPERTENSION[ICD9: 401.9] Diagnosis: Tachycardia[ICD9: 785.0] María Elena HU [facility] CPT-4: 02886 05/06/2012 ([id number]) OFFICE/OUTPATIENT VISIT EST Diagnosis: INSOMNIA NOS[ICD9: 780.52] María Elena [facility] CPT-4: 02540 04/03/2012 ([id number]) OFFICE/OUTPATIENT VISIT EST Diagnosis: INSOMNIA NOS[ICD9: 780.52] Diagnosis: HYPERTENSION[ICD9: 401.9] Diagnosis: MIGRAINE NOS/NOT INTRCBL[ICD9: 346.90] María Elena MARIN SJj [facility] CPT-4: 82092 03/19/2012 ([id number]) OFFICE/OUTPATIENT VISIT EST Diagnosis: CELLULITIS[ICD9: 682.9] Diagnosis: Ankle pain[ICD9: 719.47] Diagnosis: HYPERTENSION[ICD9: 401.9] María Elena [facility] CPT-4: 50138 02/20/2012 ([id number]) OFFICE/OUTPATIENT VISIT EST Diagnosis: MIGRAINE NOS/NOT INTRCBL[ICD9: 346.90] Diagnosis: Vomiting[ICD9: 787.03] María Elena [facility] CPT-4: 87096 01/30/2012 ([id number]) OFFICE/OUTPATIENT VISIT EST Diagnosis: EDEMA[ICD9: 782.3] Diagnosis: HYPERTENSION[ICD9: 401.9] Diagnosis: ALLERGIC RHINITIS[ICD9: 477.9] Diagnosis: ARTHRALGIA-MULTIPLE SITES[ICD9: 719.49] María Elena [facility] CPT-4: 90313 01/24/2012 ([id number]) OFFICE/OUTPATIENT VISIT EST Diagnosis: SPASM OF MUSCLE[ICD9: 728.85] Diagnosis: Thoracic back pain[ICD9: 724.1] Diagnosis: Cervical pain[ICD9: 723.1] María Elena [facility] CPT-4: 40926 01/10/2012 OFFICE/OUTPATIENT VISIT EST Diagnosis: PAIN, LOWER BACK[ICD9: 724.2] Diagnosis: LUMBAR DISC DISPLACEMENT[ICD9: 722.10] María Elena Seamusabbey MARLIN [facility] CPT-4: 96120 12/11/2011 OFFICE/OUTPATIENT VISIT EST Diagnosis: MIGRAINE NOS/NOT INTRCBL[ICD9: 346.90] Diagnosis: SINUSITIS, ACUTE[ICD9: 461.9] María Elena [facility] CPT-4: 63696 11/09/2011 OFFICE/OUTPATIENT VISIT EST Diagnosis: MIGRAINE NOS/NOT INTRCBL[ICD9: 346.90] Diagnosis: LYMPHADENOPATHY[ICD9: 785.6] María Elena [facility] CPT-4: 10556 09/13/2011 OFFICE/OUTPATIENT VISIT EST Diagnosis: MALAISE AND FATIGUE[ICD9: 780.79] Diagnosis: ARTHRALGIA-MULTIPLE SITES[ICD9: 719.49] María Elena Seamusabbey MONTERO APARNAGAEL LucioJj [facility] CPT-4: 59936 08/31/2011 OFFICE/OUTPATIENT VISIT EST Diagnosis: SINUSITIS, ACUTE[ICD9: 461.9] María Elena Waymindimaryjane ValdesJj [facility] CPT-4: 69018 07/20/2011 OFFICE/OUTPATIENT VISIT EST Diagnosis: HYPERTENSION[ICD9: 401.9] Diagnosis: PAIN, LOWER BACK[ICD9: 724.2] Diagnosis: SPASM OF MUSCLE[ICD9: 728.85] María Elena Waymindimaryjane [facility] CPT-4: 62112 07/06/2011 OFFICE/OUTPATIENT VISIT EST Diagnosis: MIGRAINE NOS/NOT INTRCBL[ICD9: 346.90] Diagnosis: HYPERTENSION[ICD9: 401.9] María Elena Hicks [facility] CPT-4: 05071 05/22/2011 OFFICE/OUTPATIENT VISIT EST Diagnosis: SINUSITIS, ACUTE[ICD9: 461.9] Diagnosis: MIGRAINE NOS/NOT INTRCBL[ICD9: 346.90] Diagnosis: Dehydration[ICD9: 276.51] Diagnosis: Vomiting[ICD9: 787.03] María Elena Hicks [facility] CPT-4: 87886 05/09/2011 ([id number]) OFFICE/OUTPATIENT VISIT EST María Elena [facility] CPT-4: 34181 02/14/2011 ([id number]) OFFICE/OUTPATIENT VISIT EST María Elena [facility] CPT-4: 62548 02/03/2011 ([id number]) OFFICE/OUTPATIENT VISIT EST María Elena [facility]AC [facility] CPT-4: 01262 01/31/2011 ([id number]) OFFICE/OUTPATIENT VISIT EST María Elena [facility]AC [facility] CPT-4: 70987 01/25/2011 ([id number]) OFFICE/OUTPATIENT VISIT EST María Elena [facility]AAC [facility] CPT-4: 78617 01/18/2011 ([id number]) OFFICE/OUTPATIENT VISIT EST María Elena [facility]AAC [facility] CPT-4: 25011 11/29/2010 ([id number]) OFFICE/OUTPATIENT VISIT, EST María Elena MOTNERO [facility] CPT-4: 97106 10/10/2010 ([id number]) OFFICE/OUTPATIENT VISIT, EST María Elena MONTERO [facility] CPT-4: 48011 06/07/2010 ([id number]) OFFICE/OUTPATIENT VISIT, EST María Elena [facility]TERO [facility] CPT-4: 45771 04/27/2010 ([id number]) OFFICE/OUTPATIENT VISIT, EST María Elena Waymindimaryjane [facility]TERO [facility] CPT-4: 86732 04/05/2010 ([id number]) OFFICE/OUTPATIENT VISIT, EST María Elena [facility] CPT-4: 87109 03/09/2010 ([id number]) OFFICE/OUTPATIENT VISIT, EST María Elena [facility] CPT-4: 27834 03/03/2010 ([id number]) OFFICE/OUTPATIENT VISIT, EST María Elena [facility] CPT-4: 16462 01/17/2010 ([id number]) PREV VISIT, EST, AGE 40-64 María Elena [facility] CPT-4: 58341 12/27/2009 Plan of Care Planned Activity Notes [...] E11.65 01/13/2020 Patient Education: lisinopril- [employer] [id number] Completed 01/13/2020 Patient Education: glimepiride- [employer]on [id number] Completed 01/13/2020 Appointment: María Elena [facility] [facility]ED 11/26/2019 Visit Diagnosis Plan: Type 2 diabetes mellitus with hy perglycemia Discussion: Januvia 100mg daily Glimepride 2mg po BID Accuchecks BID Call in 2 weeks with BS readings Get formulary book ICD-9 : 250.02 ICD-10 : E11.65 11/20/2019 Appointment: María Elena Appiah [facility]Ptel[facility] [phone] [facility] [facility] FOLLOW UP 11/20/2019 Patient Education: glimepiride- [employer] C[employer]on [id number] Completed 11/20/2019 Patient Education: Januvia- [employer]on [id number] Completed 11/20/2019 Visit Diagnosis Plan: Ingrowing nail [...] ICD-10 : E11.65 10/07/2019 Appointment: Kathleen Zuniga [address] [place], [place] [id number] OFFICE SURGERY 10/07/2019 Visit Diagnosis Plan: Hypertriglyceridemia [...] E11.65 09/30/2019 Appointment: María Elena Appiah WPtel: [address] [place], [place] [phone] [place] CHECK UP 09/30/2019 Patient Education: Premarin- [employer] Coupon [id number] https://[email or web address]/[email or web address]/resources/getResource/61/09349t68-k194-4gpy-w3 Completed 09/30/2019 Appointment: María Elena Appiah WPtel: [address] [place], [place] [phone] [place] LAB 09/29/2019 Appointment: María Elena Appiah WPtel: [address] [place], [place] [phone] [place] Won't have the new insurance till [...] W06.XXXS 05/28/2019 Appointment: María Elena Appiah WPtel: [address] [place], [place] [phone] US FOLLOW UP 05/28/2019 Appointment: María Elena Appiah WPtel: [address] [place], [place] [phone] US BP CHECK 05/19/2019 Visit Diagnosis Plan: [...] Z79.890 01/22/2019 Appointment: María Elena Appiah WPtel: [address] [place], [place] [address] US FOLLOW UP 01/22/2019 Patient Education: estradiol- [employer] Coupon [id number] https://[email or web address]/[employer]AR[employer]/resources/getResource/61/[email or web address] Completed 01/22/2019 Appointment: María Elena Appiah WPtel: [address] [place] [address] US CANCELED 01/20/2019 Appointment: María Elena Appiah WPtel: [address] [place] [address] US LM NO SHOW 01/06/2019 Appointment: María Elena Appiah WPtel: [address] [place] [address] US CANCELED 10/17/2018 Appointment: María Elena Appiah WPtel: [address] [place] [address] US BP CHECK 10/09/2018 Visit Diagnosis Plan: [...] I10 09/30/2018 Appointment: María Elena Appiah WPtel: [address] [place] [address] US FOLLOW UP 09/30/2018 Visit Diagnosis Plan: [...] F51.01 08/27/2018 Appointment: María Elena Appiah WPtel: [address] [place] [address] ACUTE ILLNESS 08/27/2018 Appointment: María Elena Appiah WPtel: [address] [place] [address] US Patient stated she went out to [...] Tyle... 08/09/2018 Appointment: María Elena Appiah WPtel: [address] [place], [place] [phone] ACUTE ILLNESS 08/09/2018 Appointment: María Elena Appiah WPtel: [address] [place], [place] [phone] NO SHOW 08/08/2018 Visit Diagnosis Plan: Anxiety [...] B35.4 07/22/2018 Appointment: María Elena Appiah WPtel: [address] [place] [address] ACUTE ILLNESS 07/22/2018 Appointment: María Elena Appiah WPtel: [address] [place] [address] US INJECTION 06/19/2018 Patient Education: Patient Medication [...] ICD-10 : L03.031 06/17/2018 Appointment: Kathleen Zuniga [address] [place] [address] ACUTE ILLNESS 06/17/2018 Patient Education: Patient Medication [...] ICD-10 : B02.9 05/16/2018 Appointment: Kathleen Zuniga [address] [place], [place] [phone] ACUTE ILLNESS 05/16/2018 Patient Education: Patient Medication [...] ICD-10 : L03.115 03/20/2018 Appointment: Kathleen Zuniga [address] [place] [address] FOLLOW UP 03/20/2018 Patient Education: Patient Medication [...] ICD-10 : L03.115 03/18/2018 Appointment: Kathleen Zuniga [address] [place], [place] [address] FOLLOW UP 03/18/2018 Patient Education: Patient Medication [...] : L03.115 03/15/2018 App[facility]ment[facility] [facility] 03/15/2018 Patient Education: Patient Medication [...] : J01.90 02/11/2018 Appointment: Kathleen Zuniga [facility] ACUTE ILLNESS 02/11/2018 Patient Education: Patient Medication Summary Completed 02/11/2018 Appointment: María Elena Appiah WPtel: [phone] [facility] [address] INJECTION 02/01/2018 Patient Education: Patient Medication Summary [...] : M51.16 01/30/2018 Appointment: Kathleen Zuniga [facility] ACUTE ILLNESS 01/30/2018 Patient Education: Patient Medication [...] E11.65 12/18/2017 Appointment: María Elena Appiah WPtel: [facility] [address] Annual Well Visit 12/18/2017 Patient Education: Patient Medication Summary Completed 12/18/2017 Care Plan: Referral Order SNOMED-CT : [id number] Pending 12/18/2017 Appointment: María Elena Appiah WPtel: [phone] [facility] [address] [place] INJECTION 12/10/2017 Patient Education: Patient Medication [...] ICD-10 : L03.031 12/07/2017 Appointment: Kathleen Zuniga [address] [place], [place] [id number] ACUTE ILLNESS 12/07/2017 Patient Education: Patient [...] ICD-10 : J01.00 10/08/2017 Appointment: Kathleen Zuniga [address] [place], [place] [id number] ACUTE ILLNESS 10/08/2017 Patient Education: Patient Medication Summary Completed 10/08/2017 Appointment: María Elena Appiah WPtel: [phone] [facility] [address] INJECTION 09/21/2017 Patient Education: Patient Medication Summary [...] ICD-10 : R06.83 09/20/2017 Appointment: Kathleen Zuniga [address] [place], [place] [id number] ACUTE ILLNESS 09/20/2017 Patient Education: Patient [...] ICD-10 : L60.0 08/29/2017 Appointment: Kathleen Zuniga [address] [place], [place] [id number] OFFICE SURGERY 08/29/2017 Patient Education: Patient Medication Summary Completed 08/29/2017 Visit Diagnosis Plan: Actinic keratosis Discussion: Cr yotherapy as above ICD-9 : 702.0 ICD-10 : L57.0 08/01/2017 Appointment: María Elena Appiah WPtel: [phone] [facility] [address] OFFICE SURGERY 08/01/2017 Patient Education: Patient Medication Summary Completed 08/01/2017 Appointment: María Elena Appiah WPtel: [phone] [facility] [address] [place] PATIENT THOUGHT APPOINTMENT WAS TOMORROW 07/26/17 CALLED 15 MINUTES BEFORE APPT TO SAY SHE DIDN'T HAVE ANYONE TO COVER HER BUSINESS AND WOULD NOT MAKE IT NO SHOW 07/25/2017 Visit Diagnosis Plan: Cellulitis of left toe Discussio n: Clindamycin and notify if worsening or persistis ICD-9 : 681.10 ICD-10 : L03.032 07/19/2017 Appointment: María Elena App[facility] [phone] [id number] [place] MEDICATION REVIEW 07/19/2017 Patient Education: Patient Medication Summary Completed 07/19/2017 Appointment: María Elena App[facility] [phone] [id number] [place] CANCELED 07/04/2017 Visit Diagnosis Plan: Generalized hyperhidrosis Discus ian: CBC, CMP, TSH, free T4 ordered to assess. will review labs. ICD-9 : 780.8 ICD-10 : R61 06/27/2017 Visit Diagnosis Plan: Chronic sinusitis, unspecified D iscussion: Referral sent to dr. albarado in [place] per patient request. patient has been treated multiple times for sinus infections with no recovery. patient was seen by dr sanchez in the past with no interventions. patient has deviated septum which may be affecting her sinuses. 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, including hip Discussion: Shave removal of above lesio n--sent to pathology ICD-9 : 216.7 ICD-10 : D23.72 01/24/2017 Appointment: María Elena Appiah WPtel: [address] [place], [place] [phone] 01/23 confirmed ~sl OFFICE SURGERY 01/24/2017 Patient Education: Patient Medication Summary Completed 01/24/2017 Appointment: Gonzalo Loan [address] [place] [address] 01/09 rescheduled~sl RESCHEDULED 01/15/2017 Visit Diagnosis Plan: [...] L81.4 12/13/2016 Appointment: María Elena Appiah WPtel: [address] [place], [place] [phone] [place] 12/12 confirmed ~sl MEDICATION REVIEW 12/13/2016 Patient Education: Patient Medication Summary Completed 12/13/2016 Appointment: María Elena Appiah WPtel: [address] [place], [place] [phone] [place] rescheduled for 12/13/16 at 11am RESCHEDULED [...] F51.01 11/01/2016 Appointment: María Elena Appiah WPtel: [facility] [place] 10/31 lm `sl 11/01 lm`sl MEDICATION REVIEW 017 Patient Education: Patient Medication Summary Completed 11/01/2016 Referral: Canelo Overton WPtel: [phone] [id number] [place] Referral Initiated 10/30/2016 Visit Diagnosis Plan: [...] Z01.419 10/17/2016 Appointment: María Elena Appiah WPtel: [address] [place], [place] [id number] [place] 10/16 confirmed ~sl PAP 10/17/2016 Patient Education: Patient Medication Summary Completed 10/17/2016 Care Plan: MAMMOGRAM SCREENING LOINC : 2 6347-5 Pending 10/17/2016 Visit Diagnosis Plan: Other seasonal allergic rhinitis Discussion: Decadron/Garamycin Nasal Fountain Mix Too soon for steroid Retry zyrtec 10mg daily ICD-9 : 477.9 ICD-10 : J30.2 10/10/2016 Appointment: María Elena Appiah WPtel: [address] [place], [place] [phone] FOLLOW UP 10/10/2016 Patient Education: Patient Medication Summary Completed 10/10/2016 Appointment: María Elena Appiah WPtel: [address] [place], [place] [phone] 10/02 reschedule `sl RESCHEDULED 10/02/2016 Visit Plan: See surgery for removal of n ew left arm lesion and right foot lesion Lyrica to use next month for left arm paresthesias Continue current meds Discussed sunscreen/sunblock combo 09/19/2016 Appointment: María Elena Appiah WPtel: [address] [place] [address] 09/18 confirmed ~sl FOLLOW UP 09/19/2016 Patient Education: Patient Medication Summary Completed 09/19/2016 Patient Education: Patient Medication Summary Completed 09/18/2016 Care Plan: MAMMOGRAM BOTH BREASTS LOINC : 55943-8 Pending 09/18/2016 Visit Plan: Discussed that needs [...] sinuses 08/24/2016 Appointment: María Elena Appiah WPtel: [address] [place], [place] [phone] ACUTE ILLNESS 08/24/2016 Patient Education: Patient Medication Summary Completed 08/24/2016 Patient Education: Patient Medication Summary Completed 08/23/2016 Care Plan: MAMMOGRAM SCREENING LOINC : 2 6347-5 Pending 08/23/2016 Visit Plan: Finish doxycycline Add Breo 100/25 1 p BID for 2 weeks If not improving within next 2 days will get CXR 08/16/2016 Appointment: María Elena Appiah WPtel: [address] [place] [address] ACUTE ILLNESS 08/16/2016 Patient Education: Patient Medication Summary Completed 08/16/2016 Visit Plan: Supportive care. Rest, Fluid s, Tylenol/Motrin prn fever or bodyaches. Notify if worsening symptoms. Doxycyline and Prednisone 08/10/2016 Appointment: María Elena Appiah WPtel: [address] [place] [address] 08/09 lm`sl....confirmed-sp FOLLOW UP 09/2015 Patient Education: Patient Medication Summary Completed 08/10/2016 Visit Plan: Saline nasal flushes prn. Ty lenol/Motrin prn headache. Notify if persists/symptoms worsening. Dexamethasone 8mg IM today May use coricedan and mucinex 08/02/2016 Appointment: María Elena Appiah WPtel: [address] [place] [address] ACUTE ILLNESS 08/02/2016 Patient Education: Patient Medication Summary Completed 08/02/2016 Visit Plan: Cryotherapy as above and lef t forearm lesion removal as above with 5-0 punch biopsy and sent to path Return in 10 days for suture removal 08/01/2016 Appointment: María Elena Appiah WPtel: [address] [place] [address] 07/31 confirmed`~sl OFFICE SURGERY 08/01/2016 Patient Education: Patient Medication Summary Completed 08/01/2016 Visit Plan: Stop clindamycin Check CBC, CMP, ESR now/STAT 07/27/2016 Appointment: María Elena Appiah WPtel: [address] [place] [address] ACUTE ILLNESS 07/27/2016 Patient Education: Patient Medication Summary Completed 07/27/2016 Visit Plan: Update lab and check ABIs to start with Will likely need cardiology evaluation to rule out PVD Clindamycin for 10 days Daily yogurt or probiotic Will return for removal of left arm lesions 07/20/2016 Appointment: María Elena Appiah WPtel: [address] [place], [place] [phone] ACUTE ILLNESS 07/20/2016 Patient Education: Patient Medication Summary Completed 07/20/2016 Patient Education: Patient Medication Summary Completed 07/20/2016 Care Plan: MAMMOGRAM BOTH BREASTS LOINC : 45162-0 Pending 07/20/2016 Care Plan: US EXAM CHEST LOINC : 18209-4 Pending 07/20/2016 Visit Plan: Wound culture collected from left great toe Appearance is somewhat staph like Rx as above Wound cleanser and skin care reviewed May need to add oral antibiotic if sores do not heal or continue to reoccur 07/06/2016 Appointment: Loan Sánchez [address] [place] [address] ACUTE ILLNESS 07/06/2016 Patient Education: Patient Medication Summary Completed 07/06/2016 Appointment: María Elena Appiah WPtel: [address] [place], [place] [phone] [place] INJECTION 05/25/2016 Patient Education: Patient Medication Summary Completed 05/25/2016 Visit Plan: Saline nasal flushes prn. Ty lenol/Motrin prn headache. Notify if persists/symptoms worsening. Dexamethasone and Rocephin given 04/26/2016 Appointment: María Elena Appiah WPtel: [address] [place], [place] [phone] ACUTE ILLNESS 04/26/2016 Patient Education: Patient Medication Summary Completed 04/26/2016 Visit Plan: Check CBC, CMP, TSH, FreeT4, HbA1C, estradiol, lipids in AM 03/02/2016 Appointment: María Elena Appiah WPtel: [address] [place], [place] [phone] 03/01 lm~sl ACUTE ILLNESS 03/02/2016 Patient Education: Patient Medication Summary Completed 03/02/2016 Visit Plan: Exam is nearly normal Needs to be taking daily antihistamine Would prefer to use oral steroids instead of shot but patient insist that oral steroids cause horrible headaches for her Will given kenalog IM instead 02/09/2016 Appointment: Loan Sánchez [address] [place] [address] ACUTE ILLNESS 02/09/2016 Patient Education: Patient Medication Summary Completed 02/09/2016 Visit Plan: Culture urine Macrobid DC xa nax Trial of Ativan 1mg q HS 01/24/2016 Appointment: María Elena Appiah WPtel: [address] [place] [address] ACUTE ILLNESS 01/24/2016 Patient Education: Patient Medication Summary Completed 01/24/2016 Visit Plan: No steroid or rocephin injec tion warranted Can have oral prednisone Continue current home regimen Needs to follow up with Dr Sanchez if problems persist 12/23/2015 Appointment: Loan Sánchez [address] [place] [address] ACUTE ILLNESS 12/23/2015 Patient Education: Patient Medication Summary Completed 12/23/2015 Visit Plan: Saline nasal flushes prn. Ty lenol/Motrin prn headache. Notify if persists/symptoms worsening. Kenalog 40mg IM today 12/08/2015 Appointment: María Elena Appiah WPtel: [address] [place] [address] 12/06 confirmed~ ACUTE ILLNESS 12/08/2015 Patient Education: Patient Medication Summary Completed 12/08/2015 Appointment: María Elena Appiah WPtel: [address] [place] [address] ACUTE ILLNESS 11/18/2015 Patient Education: Patient Medication Summary Completed 10/11/2015 Appointment: María Elena Appiah WPtel: [address] [place] [address] [place] INJECTION 10/07/2015 Patient Education: Patient Medication Summary Completed 10/07/2015 Visit Plan: Check renal arterial doppler s and ECHO Change amlodopine to lotrel 5/20mg q HS Will need stress test as well Check CMP, uric acid, ESR 10/06/2015 Appointment: María Elena Appiah WPtel: [address] [place] [address] ACUTE ILLNESS 10/06/2015 Patient Education: Patient Medication Summary Completed 10/06/2015 Patient Education: [facility] - [employer]aving [employer] - Amlodipine Besylate - 18-64 - Dynamic Portal ID Completed 10/06/2015 Appointment: María Elena Appaih WPtel: [address] [place], [place] [phone] [place] FOLLOW UP 09/22/2015 Visit Plan: Cephalexin 500 mg PO bid Mery ly topical Mupirocin to lesions on left lateral neck and face Follow-up in one week. Sooner if symptoms worsen 09/14/2015 Appointment: June Flores WPtel: [address] [place] [address] ACUTE ILLNESS 09/14/2015 Patient Education: Patient Medication Summary Completed 09/14/2015 Visit Plan: Change bystolic to bedtime d osing and amlodopine to morning dosing Cryotherapy as above to AKs 09/07/2015 Appointment: María Elena Appiah WPtel: [address] [place], [place] [phone] 09/06 appointment made and confirmed ~ FOLLOW UP 09/07/2015 Patient Education: Patient Medication Summary Completed 09/07/2015 Visit Plan: Increase bystolic back to 20 mg daily but will split and take 10mg in AM and 10mg in PM Stress Reducers 08/18/2015 Appointment: María Elena Appiah WPtel: [address] [place], [place] [phone] 08/17/15 appt confirmed cn ACUTE ILLNESS 08/18 Patient Education: Patient Medication Summary Completed 08/18/2015 Appointment: María Elena Appiah WPtel: [address] [place], [place] [phone] BP CHECK 07/07/2015 Patient Education: Patient Medication Summary Completed 07/07/2015 Appointment: María Elena Appiah WPtel: [address] [place], [place] [phone] BP CHECK 06/24/2015 Patient Education: Patient Medication Summary Completed 06/24/2015 Appointment: María Elena Appiah WPtel: [address] [place] [address] BP CHECK 06/21/2015 Patient Education: Patient Medication Summary Completed 06/21/2015 Visit Plan: Lab discussed Continue curre nt meds and lifestyle modification Recheck lab in 6mos 06/16/2015 Appointment: María Elena Appiah WPtel: [address] [place] [address] 06/15 confirmed FOLLOW UP 06/16/2015 Patient Education: Patient Medication Summary Completed 06/16/2015 Patient Education: Patient Medication Summary Completed 06/15/2015 Visit Plan: Increase cymbalta to 60mg q HS Keep clonidine at current dose Recheck 2weeks Change xanax to klonopin 06/02/2015 Appointment: María Elena Appiah WPtel: [address] [place] [address] 06/02 lm FOLLOW UP 06/02/2015 Patient Education: Patient Medication Summary Completed 06/02/2015 Appointment: María Elena Appiah WPtel: [address] [place] [address] ACUTE ILLNESS 05/24/2015 Visit Plan: Increase clonidine to 0.2mg q HS Add cymbalta 30mg q HS Recheck 2weeks Stress Reducers Check fasting lab Discussed sleep study 05/20/2015 Appointment: María Elena Appiah WPtel: [address] [place] [address] ACUTE ILLNESS 05/20/2015 Patient Education: Patient Medication Summary Completed 05/20/2015 Patient Education: [facility] - [employer] - Cymbalta - 18-64 - Dynamic Portal ID Completed 05/20/2015 Appointment: María Elena Appiah WPtel: [address] [place] [address] BP CHECK 05/19/2015 Patient Education: Patient Medication Summary Completed 05/19/2015 Visit Plan: Topical Bactroban alternatin g with topical betamethasone Recheck 2weeks 05/10/2015 Appointment: María Elena Appiahl: [address] [place], [place] [phone] 05/07 vm cn...05/07 appt confirmed OFFICE SURGER Y 05/10/2015 Patient Education: Patient Medication Summary Completed 05/10/2015 [facility]: [id number] Referral Initiated 05/04/2015 Visit Plan: Saline nasal flushes prn. Ty lenol/Motrin prn headache. Notify if persists/symptoms worsening. Depomedrol 40mg IM today 03/16/2015 Appointment: María Elena Appiah WPtel: [address] [place] [address] ACUTE ILLNESS 03/16/2015 Patient Education: Patient Medication Summary Completed 03/16/2015 Appointment: María Elena Appiah WPtel: [address] [place] [address] ER Follow UP 03/09/2015 Visit Plan: Cryotherapy to lesions as ab ove 10/27/2014 Appointment: María Elena Appiah WPtel: [address] [place] [address] OFFICE SURGERY 10/27/2014 Patient Education: Patient Medication Summary Completed 10/27/2014 Appointment: June Flores WPtel: [address] [place] [address] ACUTE ILLNESS 09/11/2014 Patient Education: Patient Medication Summary Completed 09/11/2014 Visit Plan: Lab discussed Lipitor 10mg d aily Coenzyme Q-10 400mg daily Vitamin D3 5000u daily Recheck lipids with LFTs in 3mos then fwup 08/31/2014 Appointment: María Elena Appiah WPtel: [address] [place] [address] 08/28 voicemail FOLLOW UP 08/31/2014 Patient Education: Patient Medication Summary Completed 08/31/2014 Appointment: María Elena Appiah WPtel: [address] [place], [place] [phone] LAB 08/27/2014 Appointment: María Elena Appiah WPtel: [address] [place] [address] LAB 08/27/2014 Patient Education: Patient Medication Summary Completed 08/27/2014 Appointment: María Elena Appiah WPtel: [address] [place] [address] ACUTE ILLNESS 07/23/2014 Appointment: María Elena Appiah WPtel: [address] [place] [address] ACUTE ILLNESS 07/21/2014 Patient Education: Patient Medication Summary Completed 07/21/2014 Visit Plan: Kenalog 40mg IM today Contin ue narendra and singulair Add Flonase 07/15/2014 Appointment: María Elena Appiah WPtel: [address] [place] [address] ACUTE ILLNESS 07/15/2014 Appointment: María Elena Appiah WPtel: [address] [place] [address] ACUTE ILLNESS 07/15/2014 Patient Education: Patient Medication Summary Completed 07/15/2014 Visit Plan: Will do metolazone 2.5mg prn with 6 potassium and see if causes as severe cramping Trial of of seroquel XR 50mg q PM with evening meal and let us know how works 05/18/2014 Appointment: María Elena Appiah WPtel: [address] [place] [address] 05/15 left message FOLLOW UP 05/18/2014 Patient Education: Patient Medication Summary Completed 05/18/2014 Appointment: María Elena Appiah WPtel: [address] [place], [place] [phone] LAB 05/14/2014 Patient Education: Patient Medication Summary Completed 05/14/2014 Appointment: María Elena Appiah WPtel: [address] [place], [place] [phone] [place] INJECTION 04/22/2014 Visit Plan: Tisha and Miranda today a nd finish abx given from urgent care 04/21/2014 Appointment: María Elena Appiah WPtel: [address] [place], [place] [phone] [place] INJECTION 04/21/2014 Patient Education: Patient Medication Summary Completed 04/21/2014 Appointment: June Flores WPtel: [address] [place], [place] [phone] ACUTE ILLNESS 03/04/2014 Patient Education: Patient Medication Summary Completed 03/04/2014 Appointment: María Elena Appiah WPtel: [address] [place], [place] [phone] [place] INJECTION 02/27/2014 Patient Education: Patient Medication Summary Completed 02/27/2014 Visit Plan: Cryotherapy as above to all lesions Patient wants to try no meds for insomnia for a while and see how goes 01/13/2014 Appointment: María Elena Appiah WPtel: [address] [place] [address] OFFICE SURGERY 01/13/2014 Patient Education: Patient Medication Summary Completed 01/13/2014 Visit Plan: Stop Melatonin Stop Soma Tri al of trazadone 75mg q HS See ENT for possible tubes as has had chronic ETD and serous otitis media with numerous steroids 12/24/2013 Appointment: María Elena Appiah WPtel: [address] [place], [place] [phone] ACUTE ILLNESS 12/24/2013 Patient Education: Patient Medication Summary Completed 12/24/2013 Visit Plan: Saline nasal flushes prn. Ty lenol/Motrin prn headache. Notify if persists/symptoms worsening. 11/12/2013 Appointment: María Elena Appiah WPtel: [address] [place], [place] [phone] ACUTE ILLNESS 11/12/2013 Patient Education: Patient Medication Summary Completed 11/12/2013 Appointment: María Elena Appiah WPtel: [address] [place] [address] ACUTE ILLNESS 10/21/2013 Patient Education: Patient Medication Summary Completed 10/21/2013 Visit Plan: Sleep hygiene and sleep rout ine Melatonin 10mg q HS Support stockings and observe 09/22/2013 Appointment: María Elena Appiah WPtel: [address] [place] [address] ACUTE ILLNESS 09/22/2013 Patient Education: Patient Medication Summary Completed 09/22/2013 Appointment: June Flores WPtel: [address] [place] [address] ACUTE ILLNESS 08/27/2013 Patient Education: Patient Medication Summary Completed 08/27/2013 Visit Plan: Proceed with CT scan of head /neck Proceed with occipital nerve injections Butrans 20mcg patch weekly until can get into see Dr. Mcdonough for injections 08/04/2013 Appointment: María Elena Appiah WPtel: [address] [place] [address] FOLLOW UP 08/04/2013 Patient Education: Patient Medication Summary Completed 08/04/2013 Visit Plan: OMT done Daily neck stretche s, moist heat Increase Celebrex to 200mg BID Add flexeril 07/23/2013 Appointment: María Elena Appiah WPtel: [address] [place] [address] 07/22 voicemail FOLLOW UP 07/23/2013 Patient Education: Patient Medication Summary Completed 07/23/2013 Appointment: María Elena Appiah WPtel: [address] [place] [address] ACUTE ILLNESS 06/23/2013 Patient Education: Patient Medication Summary Completed 06/23/2013 Appointment: María Elena Appiah WPtel: [address] [place] [address] ACUTE ILLNESS 05/26/2013 Patient Education: Patient Medication Summary Completed 05/26/2013 Visit Plan: Decrease clonidine to 0.1mg TID If BP remains stable consider decreasing amlodopine Prednisone for 5 days BP check in 1mo 04/16/2013 Appointment: María Elena Appiah WPtel: [address] [place] [address] 04/14 pt called and confirmed appt FOLLOW UP 04/16/2013 Patient Education: Patient Medication Summary Completed 04/16/2013 Appointment: María Elena Appiah WPtel: [address] [place] [address] ACUTE ILLNESS 03/05/2013 Patient Education: Patient Medication Summary Completed 03/05/2013 Visit Plan: Pt has MARIA ELENA on with Dr. Sharonda Arita Butrans patch Refill Hydrocodone early tomorrow 12/23/2012 Appointment: María Elena Appiah WPtel: [address] [place] [address] FOLLOW UP 12/23/2012 Patient Education: Patient Medication Summary Completed 12/23/2012 Appointment: Lashawn Eckert WPtel: [address] [place] [address] ACUTE ILLNESS 12/16/2012 Patient Education: Patient Medication Summary Completed 12/16/2012 Visit Plan: Proceed with updated MRI of LS spine Continue gabapentin and add soma and diclofenac Will likely need to go for another epidural 12/09/2012 Appointment: María Elena Appiah WPtel: [address] [place] [address] ACUTE ILLNESS 12/09/2012 Patient Education: Patient Medication Summary Completed 12/09/2012 Visit Plan: Injection as above Finish me drol dose pack Chiropracter this afternoon 12/04/2012 Appointment: María Elena Appiah WPtel: [address] [place] [address] ACUTE ILLNESS 12/04/2012 Patient Education: Patient Medication Summary Completed 12/04/2012 Appointment: Mary Tillman WPtel: [address] [place] [address] FOLLOW UP 11/22/2012 Patient Education: Patient Medication Summary Completed 11/22/2012 Appointment: María Elena Appiah WPtel: [address] [place] [address] ACUTE ILLNESS 11/21/2012 Patient Education: Patient Medication Summary Completed 11/21/2012 Appointment: María Elena Appiah WPtel: [address] [place] [address] BP CHECK 11/07/2012 Patient Education: Patient Medication [...] re-check. 10/29/2012 Appointment: Lashawn Eckert WPtel: [address] [place] [address] ACUTE ILLNESS 10/29/2012 Patient Education: Patient Medication Summary Completed 10/29/2012 Appointment: María Elena Appiah WPtel: [address] [place] [address] ACUTE ILLNESS 10/14/2012 Patient Education: Patient Medication Summary Completed 10/14/2012 Appointment: María Elena Appiah WPtel: [address] [place] [address] UA 09/27/2012 Patient Education: Patient Medication Summary Completed 09/27/2012 Appointment: María Elena Appiah WPtel: [address] [place] [address] ACUTE ILLNESS 09/25/2012 Patient Education: Patient Medication Summary Completed 09/25/2012 Appointment: María Elena Appiah WPtel: [address] [place] [address] BP CHECK 09/24/2012 Appointment: María Elena Appiah WPtel: [address] [place], [place] [phone] ACUTE ILLNESS 08/29/2012 Patient Education: Patient Medication Summary Completed 08/29/2012 Visit Plan: Cryotherapy as above See Karlos m for right ear lesion--probable MOHs procedure Increase amlodopine to 10mg daily 08/12/2012 Appointment: María Elena Appiah WPtel: [address] [place], [place] [phone] OFFICE SURGERY 08/12/2012 Patient Education: Patient Medication Summary Completed 08/12/2012 Appointment: María Elena Appiah WPtel: [address] [place] [address] 05/03 vm on pt phone...pt called on 04/11 3 pt called wanting in had no one cancel so could not get her in for an appt sooner than 05/06. ACUTE ILLNESS 05/06/2012 Patient Education: Patient Medication Summary Completed 05/06/2012 Visit Plan: Pt wants to hold on any furt her sleep medications 04/03/2012 Appointment: María Elena Appiah WPtel: [address] [place] [address] FOLLOW UP 04/03/2012 Patient Education: Patient Medication Summary Completed 04/03/2012 Appointment: María Elena Appiah WPtel: [address] [place], [place] [phone] FOLLOW UP 03/19/2012 Patient Education: Patient Medication Summary Completed 03/19/2012 Appointment: María Elena Appiah WPtel: [address] [place], [place] [phone] BP CHECK 02/22/2012 Patient Education: Patient Medication Summary Completed 02/22/2012 Appointment: María Elena Appiah WPtel: [address] [place], [place] [phone] BP CHECK 02/21/2012 Patient Education: Patient Medication Summary Completed 02/21/2012 Visit Plan: Doxycycline and bactroban fo r foot Supportive care on ankles and knees Add norvasc for BP 02/20/2012 Appointment: María Elena Appiahtel: [address] [place] [address] ER Follow UP 02/20/2012 Patient Education: Patient Medication Summary Completed 02/20/2012 Appointment: María Elena Appiahtel: [address] [place] [address] ACUTE ILLNESS 01/30/2012 Patient Education: Patient Medication Summary Completed 01/30/2012 Appointment: María Elena Appiahtel: [address] [place] [address] ACUTE ILLNESS 01/24/2012 Patient Education: Patient Medication Summary Completed 01/24/2012 Visit Plan: Daily back stretches, moist heat, Biofreeze prn OMT done 01/10/2012 Appointment: María Elena Appiahtel: [address] [place] [address] ACUTE ILLNESS 01/10/2012 Patient Education: Patient Medication Summary Completed 01/10/2012 Appointment: María Elena Appiahtel: [address] [place] [address] FOLLOW UP 12/11/2011 Patient Education: Patient Medication Summary Completed 12/11/2011 Appointment: María Elena Appiahtel: [address] [place] [address] ACUTE ILLNESS 11/09/2011 Patient Education: Patient Medication Summary Completed 11/09/2011 Appointment: María Elena Appiahtel: [address] [place] [address] ACUTE ILLNESS 09/13/2011 Patient Education: Patient Medication Summary Completed 09/13/2011 Visit Plan: Check CBC, TSH, Free T4, CMP , ESR, Vit D, B12 now Start Prednisone today 08/31/2011 Appointment: María Elena Appiahtel: [address] [place], [place] [phone] ACUTE ILLNESS 08/31/2011 Patient Education: Patient Medication Summary Completed 08/31/2011 Appointment: María Elena Appiahtel: [address] [place], [place] [phone] [place] INJECTION 07/20/2011 Patient Education: Patient Medication Summary Completed 07/20/2011 Visit Plan: Continue current meds Monite r BP Cont stretches from PT 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 07/06/2011 Appointment: María Elena Appiah WPtel: [address] [place] [address] FOLLOW UP 07/06/2011 Patient Education: Patient Medication Summary Completed 07/06/2011 Appointment: María Elena Appiah WPtel: [address] [place] [address] BP CHECK 06/06/2011 Patient Education: Patient Medication Summary Completed 06/06/2011 Visit Plan: Add Bystolic at 2.5mg QAM Ad d Robaxin 750mg 2 po q HS BP check in 2wks 05/22/2011 Appointment: María Elena Appiahtel: [address] [place] [address] FOLLOW UP 05/22/2011 Patient Education: Patient Medication Summary Completed 05/22/2011 Appointment: María Elena Appiah WPtel: [address] [place], [place] [phone] ER Follow UP 05/09/2011 Patient Education: Patient Medication Summary Completed 05/09/2011 Appointment: María Elena Appiah WPtel: [address] [place] [address] [place] FOLLOW UP 02/22/2011 Visit Plan: Rx written for Hydrocodone 1 0/325mg #240 See Ortho 02/14/2011 Appointment: María Elena Appiah WPtel: [address] [place], [place] [phone] OMT 02/14/2011 Patient Education: Patient Medication Summary [...] lab work. 02/03/2011 Appointment: Lashawn Eckert WPtel: [address] [place] [address] ACUTE ILLNESS 02/03/2011 Patient Education: Patient Medication Summary Completed 02/03/2011 Visit Plan: OMT done Cont daily stretche s 01/31/2011 Appointment: María Elena Appiah WPtel: [address] [place] [address] ACUTE ILLNESS 01/31/2011 Patient Education: Patient Medication Summary Completed 01/31/2011 Visit Plan: Continue pain meds OMT done Proceed with PT No work this summer01/25/2011 Appointment: María Elena Appiah WPtel: [address] [place] [address] ACUTE ILLNESS 01/25/2011 Patient Education: Patient Medication Summary Completed 01/25/2011 Visit Plan: Start PT Long discussion abo ut getting pain meds from only us and can only have max of 4grams of tylenol per day Change to Hydrocodone 10/325mg 1- 2 po TID prn pain--#180 called to Radha 01/18/2011 Appointment: María Elena Appiah WPtel: [address] [place] [address] FOLLOW UP 01/18/2011 Patient Education: Patient Medication Summary Completed 01/18/2011 Visit Plan: Daily back stretches, moist heat, Biofreeze prn 11/29/2010 Appointment: María Elena Appiah WPtel: [address] [place], [place] [phone] ER Follow UP 11/29/2010 Patient Education: Patient Medication Summary Completed 11/29/2010 Visit Plan: Saline nasal flushes prn. Ty lenol/Motrin prn headache. Notify if persists/symptoms worsening. Finish augmentin Add Medrol Dose Pack 10/10/2010 Appointment: María Elena Appiah WPtel: [address] [place], [place] [phone] ACUTE ILLNESS 10/10/2010 Patient Education: Patient Medication Summary Completed 10/10/2010 Visit Plan: Cryotherapy x3 to multiple l esions on both forearms 07/19/2010 Appointment: María Elena Appiah WPtel: [address] [place] [address] OFFICE SURGERY 07/19/2010 Patient Education: Patient Medication Summary Completed 07/19/2010 Appointment: María Elena Appiah WPtel: [address] [place] [address] BP CHECK 07/06/2010 Patient Education: Patient Medication Summary Completed 07/06/2010 Appointment: María Elena Appiah WPtel: [address] [place], [place] [phone] BP CHECK 06/30/2010 Patient Education: Patient Medication Summary Completed 06/30/2010 Appointment: María Elena Appiah WPtel: [address] [place], [place] [phone] BP CHECK 06/20/2010 Patient Education: Patient Medication Summary Completed 06/20/2010 Visit Plan: Change Diovan to Exforge 160 /5mg QD OMT done to thoracics BP check in 2wks 06/07/2010 Appointment: María Elena Appiah WPtel: [address] [place], [place] [phone] FOLLOW UP 06/07/2010 Patient Education: Patient Medication Summary Completed 06/07/2010 Appointment: María Elena Appiah WPtel: [address] [place] [address] BP CHECK 06/03/2010 Patient Education: Patient Medication Summary Completed 06/03/2010 Appointment: María Elena Appiah WPtel: [address] [place] [address] BP CHECK 06/01/2010 Patient Education: Patient Medication Summary Completed 06/01/2010 Visit Plan: Irritated skin tags to left neck x2 excised at base with scissors and base cauterized 05/30/2010 Appointment: María Elena Appiah WPtel: [address] [place] [address] OFFICE SURGERY 05/30/2010 Patient Education: Patient Medication Summary Completed 05/30/2010 Visit Plan: Saline nasal flushes prn. Ty lenol/Motrin prn headache. Notify if persists/symptoms worsening. Restart Nasonex Has allergy testing set for May 25 04/27/2010 Appointment: María Elena Appiah WPtel: [address] [place] [address] ACUTE ILLNESS 04/27/2010 Patient Education: Patient Medication Summary Completed 04/27/2010 Visit Plan: Saline nasal flushes prn. Ty lenol/Motrin prn headache. Notify if persists/symptoms worsening. Omnaris BID plus injections 04/05/2010 Appointment: María Elena Appiah WPtel: [address] [place] [address] ACUTE ILLNESS 04/05/2010 Patient Education: Patient Medication Summary Completed 04/05/2010 Visit Plan: Saline nasal flushes prn. Ty lenol/Motrin prn headache. Notify if persists/symptoms worsening. 03/09/2010 Appointment: María Elena Appiah WPtel: [address] [place] [address] ACUTE ILLNESS 03/09/2010 Patient Education: Patient Medication Summary Completed 03/09/2010 Visit Plan: Cont Clonidine as is Cont Pr emarin Fwup with surgery as scheduled 03/03/2010 Appointment: María Elena Appiah WPtel: [address] [place], [place] [phone] FOLLOW UP 03/03/2010 Patient Education: Patient Medication Summary Completed 03/03/2010 Visit Plan: Check Pelvic US now Discusse tacho Sal C vs Hysterectomy 01/17/2010 Appointment: María Elena Appiah WPtel: [address] [place], [place] [phone] ACUTE ILLNESS 01/17/2010 Patient Education: Patient Medication Summary Completed 01/17/2010 Visit Plan: Check fasting lab and schedu le Mammogram 2gm Na Diet Trial of Ambien 10mg qhs Fwup pending lab results 12/27/2009 Appointment: María Elena Appiah WPtel: [address] [place] [address] ESTABLISHED PATIENT 12/27/2009 Patient Education: Patient Medication Summary Completed 12/27/2009 Referral: Canelo Overton WPtel: [address] [place] [id number] [place] Referral Initiated Referral: Philipp Flores WPtel: [address] [id number] [place] Referral Appointment Requested Instructions Comment . [...]
--- OUTSIDE RECORDS SUMMARY | 2020-03-13 04:58 | XMS REPORT | CCD ---
Author Author Gale Appiah D.O. Organization [facility] Address [address] [place] [id number] Phone Care Team Providers Care Logistics Director Name Role Phone María Elena Appiah D.O., PP Unavailable CCM Unavailable Summary Purpose Interface Exchange Insurance Providers Payer name Policy type / Coverage type Covered libertarian ID Effective Begin Date Effective End Date [facility] Commercial Insurance [id number] Unknown Family History Family History data not found Social History Social History Element Codes Description Effective Dates Tobacco history SNOMED CT: [id number] Never smoker 05/22/2011 Allergies, Adverse Reactions, Alerts [...] Fill Instructions glimepiride 4 mg tablet RxNorm: 839842 1 Tablet(s) Oral two times a day replaces 2mg dose 01/13/2020 04/12/2020 Active lisinopril 40 mg tablet RxNorm: 203644 1 Tablet(s) Oral QD repl aces 20mg dose 01/13/2020 04/12/2020 Active hydrocodone 10 mg-acetaminophen 325 mg tablet RxNorm: 850644 1-2 Tablet(s) Oral three times a day as needed for pain 01/12/2020 No Stop Date Active cyclobenzaprine 10 mg tablet RxNorm: 420925 TAKE ONE TA BLET BY MOUTH THREE TIMES A DAY NEEDED FOR MUSCLE SPASMS 01/05/2020 No Stop Date Active triamterene 75 mg-hydrochlorothiazide 50 mg tablet RxNorm: 3 46593 TAKE ONE TABLET BY MOUTH DAILY 12/29/2019 No Stop Date Active Klor-Con 8 mEq tablet,extended release RxNorm: 409998 T FARRUKH ONE TABLET BY MOUTH TWICE A DAY 12/19/2019 No Stop Date Active allopurinol 300 mg tablet RxNorm: 361295 TAKE ONE TABLET BY LOPEZ TH DAILY 12/19/2019 No Stop Date Active glimepiride 2 mg tablet RxNorm: 859706 TAKE ONE TABLET BY MOUTH TWICE A DAY 12/19/2019 01/12/2020 Inactive hydrocodone 10 mg-acetaminophen 325 mg tablet RxNorm: 247828 1-2 Tablet(s) Oral three times a day as needed for pain 12/10/2019 01/11/2020 Inactive Januvia 100 mg tablet RxNorm: 132718 1 Tablet(s) Oral QD 11/20/2019 0 11/20/2019 Inactive glimepiride 2 mg tablet RxNorm: 846960 1 Tablet(s) Oral two sawyer es a day 11/20/2019 12/18/2019 Inactive cyclobenzaprine 10 mg tablet RxNorm: 940474 TAKE ONE TA BLET BY MOUTH THREE TIMES A DAY NEEDED FOR MUSCLE SPASMS 11/17/2019 01/04/2020 Inactive doxepin 25 mg capsule RxNorm: 0009900 TAKE ONE CAPSULE B Y MOUTH EVERY NIGHT AT BEDTIME NEEDED FOR SLEEP 11/16/2019 No Stop Date Active Klor-Con 8 mEq tablet,extended release RxNorm: 088551 T FARRUKH ONE TABLET BY MOUTH TWICE A DAY 11/16/2019 12/18/2019 Inactive hydrocodone 10 mg-acetaminophen 325 mg tablet RxNorm: 575695 1-2 Tablet(s) Oral three times a day as needed for pain 11/10/2019 12/09/2019 Inactive cyclobenzaprine 10 mg tablet RxNorm: 411060 TAKE ONE TA BLET BY MOUTH THREE TIMES A DAY NEEDED FOR MUSCLE SPASMS 10/23/2019 11/16/2019 Inactive duloxetine 60 mg capsule,delayed release RxNorm: 770313 1 Capsu le(s) Oral QD 10/17/2019 04/13/2020 Active celecoxib 200 mg capsule RxNorm: 164925 1 Capsule(s) Or al two times a day as needed for pain 10/17/2019 01/14/2020 Active gabapentin 300 mg capsule RxNorm: 690316 1 Capsule(s) O ral every night at bedtime 10/17/2019 01/15/2020 Active Singulair 10 mg tablet RxNorm: 479231 1 Tablet(s) Oral QD 10/17/2019 04/14/2020 Active metoprolol tartrate 100 mg tablet RxNorm: 469742 1 Tabl et(s) Oral two times a day 10/17/2019 04/13/2020 Active clonidine HCl 0.1 mg tablet RxNorm: 055856 1 Tablet(s) Oral fou r times a day 10/17/2019 04/13/2020 Active Lipitor 10 mg tablet RxNorm: 512022 1 Tablet(s) Oral QD 10/17/2019 Active Steglatro 15 mg tablet RxNorm: 6750115 1 Tablet(s) Oral QD 10/17/19 No Stop Date Active lisinopril 20 mg tablet RxNorm: 895244 1 Tablet(s) Oral QD 10/17/19 20 01/12/2020 Inactive Klor-Con 8 mEq tablet,extended release RxNorm: 104709 1 Tablet(s) Oral two times a day 10/17/2019 11/15/2019 Inactive Januvia 100 mg tablet RxNorm: 927157 1 Tablet(s) Oral QD 10/17/2019 0 01/12/2020 Inactive Glyxambi 25 mg-5 mg tablet RxNorm: 1601417 1 Tablet(s) Oral QD 01/202010/16/2019 Inactive Patient will bring in copay discount card as well Glyxambi 25 mg-5 mg tablet RxNorm: 4940190 1 Tablet(s) Oral QD 01/202010/14/2019 Inactive Patient will bring in copay discount card as well Keflex 500 mg capsule RxNorm: 257170 1 Capsule(s) Oral two time s a day 10/07/2019 10/14/2019 Inactive Premarin 1.25 mg tablet RxNorm: 161244 1 Tablet(s) Oral QD 09/30/19 20 06/25/2020 Active hydrocodone 10 mg-acetaminophen 325 mg tablet RxNorm: 519611 1-2 Tablet(s) Oral three times a day as needed for pain 09/30/2019 09/30/2019 Inactive baclofen 10 mg tablet RxNorm: 867469 TAKE ONE TABLET BY MOUTH THREE TIMES A DAY NEEDED 09/19/2019 No Stop Date Active gabapentin 300 mg capsule RxNorm: 671760 TAKE ONE CAPSU LE BY MOUTH EVERY NIGHT AT BEDTIME 09/19/2019 10/16/2019 Inactive Klor-Con 8 mEq tablet,extended release RxNorm: 168347 T FARRUKH ONE TABLET BY MOUTH TWICE A DAY 1 Tablet(s) Oral two times a day 09/19/2019 10/16/2019 Renu ctive hydrocodone 10 mg-acetaminophen 325 mg tablet RxNorm: 913981 1-2 Tablet(s) Oral three times a day as needed for pain 09/19/2019 09/29/2019 Inactive duloxetine 60 mg capsule,delayed release RxNorm: 100082 TAKE ONE CAPSULE BY MOUTH DAILY 09/11/2019 10/16/2019 Inactive Lipitor 10 mg tablet RxNorm: 251018 TAKE ONE TABLET BY MOUTH AT BEDTIME 09/11/2019 10/16/2019 Inactive lisinopril 20 mg tablet RxNorm: 499088 TAKE ONE TABLET BY MOUTH DAILY .... THIS REPLACE 10MG TABLETS 09/11/2019 10/16/2019 Inactive triamterene 75 mg-hydrochlorothiazide 50 mg tablet RxNorm: 3 55875 TAKE ONE TABLET BY MOUTH DAILY 09/11/2019 12/28/2019 Inactive allopurinol 300 mg tablet RxNorm: 356190 TAKE ONE TABLET BY LOPEZ TH DAILY 09/11/2019 12/18/2019 Inactive celecoxib 200 mg capsule RxNorm: 690534 TAKE ONE CAPSUL E BY MOUTH TWICE A DAY NEEDED FOR PAIN 09/11/2019 10/16/2019 Inactive clonidine HCl 0.1 mg tablet RxNorm: 217701 TAKE ONE TAB LET BY MOUTH FOUR TIMES A DAY 09/11/2019 10/16/2019 Inactive doxepin 25 mg capsule RxNorm: 2460878 1 Capsule(s) Oral every night at bedtime as needed for sleep 08/21/2019 11/15/2019 Inactive hydrocodone 10 mg-acetaminophen 325 mg tablet RxNorm: 905292 1-2 Tablet(s) PO TID 08/12/2019 09/29/2019 Inactive as needed for pa in - Previous quantity #240, will start dosing for #180 in April 2011 per Doctor Td. Medrol (Dustin) 4 mg tablets in a dose pack RxNorm: 721571 Tablet(s) Oral As Directed 07/21/2019 09/29/2019 Inactive Premarin 1.25 mg tablet RxNorm: 017418 1 Tablet(s) Oral QD 07/02/2009/29/2019 Inactive hydrocodone 10 mg-acetaminophen 325 mg tablet RxNorm: 429779 1-2 Tablet(s) PO TID 07/01/2019 08/11/2019 Inactive as needed for pa in - Previous quantity #240, will start dosing for #180 in April 2011 per Doctor Td. gabapentin 300 mg capsule RxNorm: 375952 1 Capsule(s) PO QHS 201809/18/2019 Inactive celecoxib 200 mg capsule RxNorm: 046824 1 Capsule(s) Or al two times a day as needed for pain 06/27/2019 06/27/2019 Inactive doxepin 25 mg capsule RxNorm: 5821686 TAKE ONE CAPSULE B Y MOUTH EVERY NIGHT AT BEDTIME NEEDED FOR SLEEP 06/24/2019 08/20/2019 Inactive Singulair 10 mg tablet RxNorm: 971713 TAKE ONE TABLET BY MOUTH JOSÉ Y 06/24/2019 10/16/2019 Inactive furosemide 40 mg tablet RxNorm: 443478 TAKE ONE TABLET BY MOUTH EVERY MORNING NEEDED FOR EDEMA . TAKE WITH POTASSIUM 06/24/2019 01/12/2020 Inactive lisinopril 20 mg tablet RxNorm: 714578 TAKE ONE TABLET BY MOUTH DAILY .... THIS REPLACE 10MG TABLETS 06/24/2019 09/10/2019 Inactive nystatin-triamcinolone 100,000 unit/g-0.1 % topical cream Rx Norm: 8769843 1 Application Topical two times a day 06/12/2019 06/19/2019 Inactive apply BID for 1 week nystatin-triamcinolone 100,000 unit/g-0.1 % topical cream Rx Norm: 1889739 1 Application Topical two times a day 06/12/2019 06/11/2019 Inactive apply BID for 1 week hydrocodone 10 mg-acetaminophen 325 mg tablet RxNorm: 921179 1-2 Tablet(s) PO QID as needed for pain MUST LAST 30 DAYS 05/28/2019 06/26/2019 Inactiv e (Response to an electronic controlled substance refill request - RxReferenceNumber: [id number]) baclofen 20 mg tablet RxNorm: 771536 1 Tablet(s) PO TID as needed for muscle spasm 05/19/2019 05/27/2019 Inactive gabapentin 300 mg capsule RxNorm: 299550 1 Capsule(s) PO QHS 201805/27/2019 Inactive lisinopril 20 mg tablet RxNorm: 821305 1 Tablet(s) PO Q D TAKE ONE TABLET BY MOUTH DAILY, REPLACES 10 MG DOSE 05/19/2019 06/23/2019 Inactive doxepin 25 mg capsule RxNorm: 2625310 TAKE ONE CAPSULE B Y MOUTH EVERY NIGHT AT BEDTIME NEEDED FOR SLEEP 05/16/2019 06/14/2019 Inactive lisinopril 20 mg tablet RxNorm: 028143 TAKE ONE TABLET BY MOUTH DAILY, REPLACES 10 MG DOSE 05/16/2019 05/18/2019 Inactive Singulair 10 mg tablet RxNorm: 792210 TAKE ONE TABLET BY MOUTH JOSÉ Y 05/16/2019 06/14/2019 Inactive gabapentin 300 mg capsule RxNorm: 751790 1 Capsule(s) PO QHS 201805/04/2019 Inactive estropipate 1.5 mg tablet RxNorm: 217243 1 Tablet(s) PO QD 05/05/2005/27/2019 Inactive estropipate 1.5 mg tablet RxNorm: 273438 1 Tablet(s) PO QD 05/05/20 19 05/04/2019 Inactive gabapentin 300 mg capsule RxNorm: 703453 1 Capsule(s) PO QHS 201805/18/2019 Inactive hydrocodone 10 mg-acetaminophen 325 mg tablet RxNorm: 288496 1-2 Tablet(s) PO QID as needed for pain MUST LAST 30 DAYS 04/25/2019 05/24/2019 Inactiv e (Response to an electronic controlled substance refill request - RxReferenceNumber: [id number]) cyclobenzaprine 10 mg tablet RxNorm: 971888 TAKE ONE TA BLET BY MOUTH THREE TIMES A DAY NEEDED FOR MUSCLE SPASMS 04/24/2019 05/18/2019 Inactive metoprolol tartrate 100 mg tablet RxNorm: 158845 TAKE O NE TABLET BY MOUTH TWICE A DAY 04/24/2019 10/16/2019 Inactive Lyrica 75 mg capsule RxNorm: 687397 1 Capsule(s) PO QHS 03/25/2019 Inactive duloxetine 60 mg capsule,delayed release RxNorm: 015439 TAKE ONE CAPSULE BY MOUTH DAILY 03/21/2019 05/19/2019 Inactive triamterene 75 mg-hydrochlorothiazide 50 mg tablet RxNorm: 3 66767 TAKE ONE TABLET BY MOUTH DAILY 03/21/2019 05/19/2019 Inactive Klor-Con 8 mEq tablet,extended release RxNorm: 882125 T FARRUKH ONE TABLET BY MOUTH TWICE A DAY 03/21/2019 09/18/2019 Inactive Lipitor 10 mg tablet RxNorm: 544611 TAKE ONE TABLET BY MOUTH AT BEDTIME 03/21/2019 09/10/2019 Inactive clonidine HCl 0.1 mg tablet RxNorm: 848863 TAKE ONE TAB LET BY MOUTH FOUR TIMES A DAY 03/21/2019 05/19/2019 Inactive allopurinol 300 mg tablet RxNorm: 699108 TAKE ONE TABLET BY LOPEZ TH DAILY 03/21/2019 05/19/2019 Inactive hydrocodone 10 mg-acetaminophen 325 mg tablet RxNorm: 227567 1-2 Tablet(s) PO QID as needed for pain MUST LAST 30 DAYS 02/28/2019 03/29/2019 Inactiv e (Response to an electronic controlled substance refill request - RxReferenceNumber: [id number]) furosemide 40 mg tablet RxNorm: 584764 TAKE ONE TABLET BY MOUTH EVERY MORNING NEEDED FOR EDEMA . TAKE WITH POTASSIUM 02/21/2019 03/22/2019 Inactive cyclobenzaprine 10 mg tablet RxNorm: 859141 TAKE ONE TA BLET BY MOUTH THREE TIMES A DAY NEEDED FOR MUSCLE SPASMS 02/21/2019 04/21/2019 Inactive lisinopril 20 mg tablet RxNorm: 579792 TAKE ONE TABLET BY MOUTH DAILY, REPLACES 10 MG DOSE 02/21/2019 05/15/2019 Inactive doxepin 25 mg capsule RxNorm: 9598546 TAKE ONE CAPSULE B Y MOUTH EVERY NIGHT AT BEDTIME NEEDED FOR SLEEP 02/21/2019 05/15/2019 Inactive nystatin 100,000 unit/gram topical cream RxNorm: 097522 APPLY TO AFFECTED AREA(S) TWO TIMES A DAY 02/21/2019 03/22/2019 Inactive estradiol 1 mg tablet RxNorm: 670531 2 Tablet(s) PO QD replaces premarin 01/22/2019 05/04/2019 Inactive lisinopril 20 mg tablet RxNorm: 360602 TAKE ONE TABLET BY MOUTH DAILY, REPLACES 10 MG DOSE 01/20/2019 02/18/2019 Inactive cyclobenzaprine 10 mg tablet RxNorm: 394052 TAKE ONE TA BLET BY MOUTH THREE TIMES A DAY NEEDED FOR MUSCLE SPASMS 01/20/2019 02/18/2019 Inactive metoprolol tartrate 100 mg tablet RxNorm: 132394 TAKE O NE TABLET BY MOUTH TWICE A DAY 01/20/2019 02/18/2019 Inactive cyclobenzaprine 10 mg tablet RxNorm: 911345 TAKE ONE TA BLET BY MOUTH THREE TIMES A DAY NEEDED FOR MUSCLE SPASMS 12/19/2018 01/17/2019 Inactive lisinopril 20 mg tablet RxNorm: 071722 TAKE ONE TABLET BY MOUTH DAILY, REPLACES 10 MG DOSE 12/19/2018 01/17/2019 Inactive duloxetine 60 mg capsule,delayed release RxNorm: 024683 TAKE ONE CAPSULE BY MOUTH DAILY 12/19/2018 01/17/2019 Inactive Lipitor 10 mg tablet RxNorm: 182443 TAKE ONE TABLET BY MOUTH AT BEDTIME 12/19/2018 01/17/2019 Inactive cyclobenzaprine 10 mg tablet RxNorm: 647642 1 Tablet(s) PO TID as needed for muscle spasm 11/19/2018 12/18/2018 Inactive Singulair 10 mg tablet RxNorm: 990093 1 Tablet(s) PO QD 11/19/2018 Inactive lisinopril 20 mg tablet RxNorm: 569290 TAKE ONE TABLET BY MOUTH DAILY, REPLACES 10 MG DOSE 11/15/2018 12/18/2018 Inactive hydrocodone 10 mg-acetaminophen 325 mg tablet RxNorm: 596031 1-2 Tablet(s) PO QID as needed for pain MUST LAST 30 DAYS 11/13/2018 12/12/2018 Inactiv e (Response to an electronic controlled substance refill request - RxReferenceNumber: [id number]) nystatin 100,000 unit/gram topical cream RxNorm: 913371 APPLY TO AFFECTED AREA(S) TWO TIMES A DAY 10/23/2018 11/06/2018 Inactive lisinopril 20 mg tablet RxNorm: 273625 1 Tablet(s) PO QD replac es 10mg dose 10/18/2018 11/14/2018 Inactive hydrocodone 10 mg-acetaminophen 325 mg tablet RxNorm: 229334 1-2 Tablet(s) QID as needed for pain MUST LAST 30 DAYS 10/08/2018 11/06/2018 Inactive (Response to an electronic controlled substance refill request - RxReferenceNumber: [id number]) lisinopril 10 mg tablet RxNorm: 260213 1 Tablet(s) PO QD 10/03/2018 0 01/21/2019 Inactive Celebrex 200 mg capsule RxNorm: 881627 TAKE ONE CAPSULE BY MOUT H TWICE A DAY 09/30/2018 05/04/2019 Inactive cyclobenzaprine 10 mg tablet RxNorm: 906352 TAKE ONE TA BLET BY MOUTH THREE TIMES A DAY NEEDED FOR MUSCLE SPASMS 09/30/2018 11/18/2018 Inactive doxepin 25 mg capsule RxNorm: 1232946 TAKE ONE CAPSULE B Y MOUTH EVERY NIGHT AT BEDTIME NEEDED 09/05/2018 10/16/2018 Inactive omeprazole 40 mg capsule,delayed release RxNorm: 630435 TAKE ONE CAPSULE BY MOUTH DAILY 09/05/2018 01/21/2019 Inactive furosemide 40 mg tablet RxNorm: 799799 TAKE ONE TABLET BY MOUTH EVERY MORNING NEEDED FOR EDEMA . TAKE WITH POTASSIUM 09/05/2018 11/03/2018 Inactive phentermine 37.5 mg tablet RxNorm: 813035 1 Tablet(s) PO QAM 201701/21/2019 Inactive doxepin 25 mg capsule RxNorm: 0308896 1 Capsule(s) PO QH S as needed for sleep TAKE ONE CAPSULE BY MOUTH EVERY NIGHT AT BEDTIME NEEDED 08/27/2018 09/04/2018 Inactive Keflex 500 mg capsule RxNorm: 119286 1 Capsule(s) PO TID 08/09/2018 1 10/19/2017 Inactive Diflucan 100 mg tablet RxNorm: 593615 1 Tablet(s) PO QD 08/09/2018 Inactive Premarin 1.25 mg tablet RxNorm: 655797 2 Tablet(s) PO QD 08/09/2018 0 05/04/2019 Inactive Zofran ODT 4 mg disintegrating tablet RxNorm: 809760 1 Tablet(s) PO Q4H as needed for nausea 08/09/2018 01/21/2019 Inactive metoprolol tartrate 100 mg tablet RxNorm: 421945 TAKE O NE TABLET BY MOUTH TWICE A DAY 2018 10/04/2018 Inactive doxepin 25 mg capsule RxNorm: 0043855 TAKE ONE CAPSULE B Y MOUTH EVERY NIGHT AT BEDTIME NEEDED 2018 08/26/2018 Inactive cyclobenzaprine 10 mg tablet RxNorm: 559055 TAKE ONE TA BLET BY MOUTH THREE TIMES A DAY NEEDED FOR MUSCLE SPASMS 2018 09/29/2018 Inactive hydrocodone 10 mg-acetaminophen 325 mg tablet RxNorm: 355943 1-2 Tablet(s) QID as needed for pain MUST LAST 30 DAYS 07/29/2018 08/27/2018 Inactive (Response to an electronic controlled substance refill request - RxReferenceNumber: [id number]) nystatin 100,000 unit/gram topical powder RxNorm: 442608 Applic ation TOP BID 07/22/2018 08/04/2018 Inactive doxepin 25 mg capsule RxNorm: 0700662 1 Capsule(s) PO QHS as needed 07/22/2018 08/05/2018 Inactive triamterene 75 mg-hydrochlorothiazide 50 mg tablet RxNorm: 3 04528 TAKE ONE TABLET BY MOUTH DAILY 07/05/2018 10/02/2018 Inactive duloxetine 60 mg capsule,delayed release RxNorm: 431628 TAKE ONE CAPSULE BY MOUTH DAILY 07/05/2018 09/02/2018 Inactive Klor-Con 8 mEq tablet,extended release RxNorm: 848290 T FARRUKH ONE TABLET BY MOUTH TWICE A DAY 07/05/2018 10/02/2018 Inactive Lipitor 10 mg tablet RxNorm: 910997 TAKE ONE TABLET BY MOUTH AT BEDTIME 07/05/2018 09/02/2018 Inactive allopurinol 300 mg tablet RxNorm: 994839 TAKE ONE TABLET BY LOPEZ TH DAILY 07/05/2018 10/02/2018 Inactive clonidine HCl 0.1 mg tablet RxNorm: 633838 TAKE ONE TAB LET BY MOUTH FOUR TIMES A DAY 07/05/2018 10/02/2018 Inactive hydrocodone 10 mg-acetaminophen 325 mg tablet RxNorm: 964296 1-2 Tablet(s) QID as needed for pain MUST LAST 30 DAYS 06/28/2018 07/27/2018 Inactive (Response to an electronic controlled substance refill request - RxReferenceNumber: [id number]) MediHoney (calcium alginate-honey) 4" X 5" bandage RxNorm: 1 Application TOP QD 06/17/2018 06/26/2018 Inactive honey-hydrocolloid dressing 4" X 5" RxNorm: 1 Application TOP QD 06/17/2018 07/16/2018 Inactive furosemide 40 mg tablet RxNorm: 983376 TAKE ONE TABLET BY MOUTH EVERY MORNING NEEDED FOR EDEMA . TAKE WITH POTASSIUM 06/10/2018 07/09/2018 Inactive This is a refill request. hydrocodone 10 mg-acetaminophen 325 mg tablet RxNorm: 245692 1-2 Tablet(s) QID as needed for pain MUST LAST 30 DAYS 05/30/2018 06/27/2018 Inactive (Response to an electronic controlled substance refill request - RxReferenceNumber: [id number]) acyclovir 800 mg tablet RxNorm: 386463 1 Tablet(s) PO 5x day 201705/22/2018 Inactive Premarin 1.25 mg tablet RxNorm: 929449 1-2 Tablet(s) PO QD 05/15/20 18 07/13/2018 Inactive cyclobenzaprine 10 mg tablet RxNorm: 208427 1 Tablet(s) PO TID as needed for muscle spasm 05/09/2018 05/08/2018 Inactive Medrol (Dustin) 4 mg tablets in a dose pack RxNorm: 200231 Tablet(s) PO As Directed 05/02/2018 06/16/2018 Inactive hydrocodone 10 mg-acetaminophen 325 mg tablet RxNorm: 339746 1-2 Tablet(s) QID as needed for pain MUST LAST 30 DAYS 04/30/2018 05/29/2018 Inactive (Response to an electronic controlled substance refill request - RxReferenceNumber: [id number]) duloxetine 60 mg capsule,delayed release RxNorm: 746567 TAKE ONE CAPSULE BY MOUTH DAILY 04/16/2018 05/15/2018 Inactive Celebrex 200 mg capsule RxNorm: 632783 TAKE ONE CAPSULE BY MOUT H TWICE A DAY 04/16/2018 06/14/2018 Inactive Singulair 10 mg tablet RxNorm: 435704 TAKE ONE TABLET BY MOUTH JOSÉ Y 04/16/2018 11/19/2018 Inactive Lipitor 10 mg tablet RxNorm: 539533 TAKE ONE TABLET BY MOUTH AT BEDTIME 04/16/2018 05/15/2018 Inactive hydrocodone 10 mg-acetaminophen 325 mg tablet RxNorm: 729112 1-2 Tablet(s) QID as needed for pain MUST LAST 30 DAYS 03/29/2018 04/27/2018 Inactive (Response to an electronic controlled substance refill request - RxReferenceNumber: [id number]) cyclobenzaprine 10 mg tablet RxNorm: 885523 1 Tablet(s) PO TID as needed for muscle spasm 03/18/2018 05/09/2018 Inactive omeprazole 40 mg capsule,delayed release RxNorm: 876277 1 Capsu le(s) PO QD 02/26/2018 08/24/2018 Inactive hydrocodone 10 mg-acetaminophen 325 mg tablet RxNorm: 714408 1-2 Tablet(s) QID as needed for pain MUST LAST 30 DAYS 02/26/2018 03/27/2018 Inactive (Response to an electronic controlled substance refill request - RxReferenceNumber: [id number]) metoprolol tartrate 100 mg tablet RxNorm: 035161 1 Tablet(s) PO BID 02/18/2018 08/05/2018 Inactive Lyrica 75 mg capsule RxNorm: 485750 1 Capsule(s) PO QHS 01/30/2018 Inactive phentermine 37.5 mg tablet RxNorm: 817484 1 Tablet(s) PO QAM 201706/16/2018 Inactive hydrocodone 10 mg-acetaminophen 325 mg tablet RxNorm: 313975 1-2 Tablet(s) QID as needed for pain MUST LAST 30 DAYS 01/29/2018 02/25/2018 Inactive (Response to an electronic controlled substance refill request - RxReferenceNumber: [id number]) Klor-Con 8 mEq tablet,extended release RxNorm: 678632 1 Tablet( s) PO BID 01/14/2018 07/04/2018 Inactive allopurinol 300 mg tablet RxNorm: 396273 1 Tablet(s) PO QD 01/15/2007/04/2018 Inactive Lipitor 10 mg tablet RxNorm: 831978 1 Tablet(s) PO QHS 01/14/201812/2017 Inactive triamterene 75 mg-hydrochlorothiazide 50 mg tablet RxNorm: 3 51194 1 Tablet(s) PO QD 01/14/2018 07/04/2018 Inactive hydrocodone 10 mg-acetaminophen 325 mg tablet RxNorm: 789252 1-2 Tablet(s) QID as needed for pain MUST LAST 30 DAYS 12/27/2017 01/25/2018 Inactive (Response to an electronic controlled substance refill request - RxReferenceNumber: [id number]) Onglyza 5 mg tablet RxNorm: 568799 1 Tablet(s) PO QD 12/18/201701/29 Inactive metformin 500 mg tablet RxNorm: 002528 1 Tablet(s) PO BID 12/11/2017 12/10/2017 Inactive metformin 500 mg tablet RxNorm: 739616 1 Tablet(s) PO BID 12/11/2017 12/17/2017 Inactive furosemide 40 mg tablet RxNorm: 477817 1 Tablet(s) PO Q AM prn edema--take with potassium 12/11/2017 06/08/2018 Inactive cyclobenzaprine 10 mg tablet RxNorm: 104856 1 Tablet(s) PO TID as needed for muscle spasm 12/11/2017 03/18/2018 Inactive hydrocodone 10 mg-acetaminophen 325 mg tablet RxNorm: 638797 1-2 Tablet(s) QID as needed for pain MUST LAST 30 DAYS 10/23/2017 11/21/2017 Inactive (Response to an electronic controlled substance refill request - RxReferenceNumber: [id number]) Lipitor 10 mg tablet RxNorm: 109986 1 Tablet(s) PO QHS 10/16/201703/2018 Inactive cyclobenzaprine 10 mg tablet RxNorm: 007723 1 Tablet(s) PO TID as needed for muscle spasm 10/09/2017 12/10/2017 Inactive hydroxyzine HCl 25 mg tablet RxNorm: 527933 1 Tablet(s) PO BID as needed for anxiety 09/20/2017 01/29/2018 Inactive Effexor XR 75 mg capsule,extended release RxNorm: 258884 1 Caps ule(s) PO QD 09/20/2017 01/29/2018 Inactive metoprolol tartrate 100 mg tablet RxNorm: 820160 1 Tablet(s) PO BID 08/20/2017 02/18/2018 Inactive baclofen 20 mg tablet RxNorm: 238293 1 Tablet(s) PO TID as needed for muscle spasm 08/20/2017 01/21/2019 Inactive clonidine HCl 0.1 mg tablet RxNorm: 435886 1 Tablet(s) PO QID 08/2005/16/2018 Inactive Seroquel 25 mg tablet RxNorm: 918662 1 Tablet(s) PO QHS 08/17/2017 Inactive Seroquel 25 mg tablet RxNorm: 395566 1 Tablet(s) PO QHS 08/17/2017 Inactive Diflucan 100 mg tablet RxNorm: 576960 TAKE ONE TABLET BY MOUTH JOSÉ Y 07/25/2017 08/07/2017 Inactive hydrocodone 10 mg-acetaminophen 325 mg tablet RxNorm: 531179 1-2 Tablet(s) QID as needed for pain MUST LAST 30 DAYS 07/19/2017 08/17/2017 Inactive (Response to an electronic controlled substance refill request - RxReferenceNumber: [id number]) clindamycin 300 mg capsule RxNorm: 602915 1 Capsule(s) PO TID 07/1907/28/2017 Inactive clotrimazole-betamethasone 1 %-0.05 % topical cream RxNorm: 709200 Application TOP BID to elbow rash 07/19/2017 06/16/2018 Inactive Singulair 10 mg tablet RxNorm: 503896 Tablet(s) TAKE ONE TABLET BY MOUTH DAILY 07/18/2017 04/13/2018 Inactive triamterene 75 mg-hydrochlorothiazide 50 mg tablet RxNorm: 3 44831 1 Tablet(s) PO QD 07/18/2017 01/14/2018 Inactive Celebrex 200 mg capsule RxNorm: 150015 Capsule(s) TAKE ONE CAPSULE BY MOUTH TWICE A DAY 07/18/2017 10/15/2017 Inactive hydrocodone 10 mg-acetaminophen 325 mg tablet RxNorm: 804415 1-2 Tablet(s) QID as needed for pain MUST LAST 30 DAYS 06/19/2017 07/18/2017 Inactive (Response to an electronic controlled substance refill request - RxReferenceNumber: [id number]) hydrocodone 10 mg-acetaminophen 325 mg tablet RxNorm: 340343 1-2 Tablet(s) QID as needed for pain MUST LAST 30 DAYS 06/19/2017 06/18/2017 Inactive (Response to an electronic controlled substance refill request - RxReferenceNumber: [id number]) baclofen 20 mg tablet RxNorm: 091833 1 Tablet(s) PO TID as needed for muscle spasm 06/18/2017 08/20/2017 Inactive Medrol (Dustin) 4 mg tablets in a dose pack RxNorm: 206123 Tablet(s) PO As Directed 06/05/2017 07/18/2017 Inactive omeprazole 40 mg capsule,delayed release RxNorm: 137817 1 Capsu le(s) PO QD 04/20/2017 10/16/2017 Inactive Premarin 1.25 mg tablet RxNorm: 497022 1-2 Tablet(s) PO QD 04/11/20 17 05/15/2018 Inactive duloxetine 60 mg capsule,delayed release RxNorm: 583021 1 Capsu le(s) PO QD 04/11/2017 09/19/2017 Inactive furosemide 40 mg tablet RxNorm: 297537 1 Tablet(s) PO Q AM prn edema--take with potassium 04/11/2017 12/11/2017 Inactive Klor-Con 8 mEq tablet,extended release RxNorm: 662050 1 Tablet( s) PO BID 04/11/2017 01/14/2018 Inactive Lipitor 10 mg tablet RxNorm: 507972 1 Tablet(s) PO QHS 04/11/201702/2018 Inactive amlodipine 5 mg-benazepril 20 mg capsule RxNorm: 931177 1 Capsu le(s) PO QD 04/11/2017 01/29/2018 Inactive allopurinol 300 mg tablet RxNorm: 694126 1 Tablet(s) PO QD 04/11/20 17 01/14/2018 Inactive clonidine HCl 0.1 mg tablet RxNorm: 932261 1 Tablet(s) PO QID 04/0508/19/2017 Inactive baclofen 20 mg tablet RxNorm: 316989 1 Tablet(s) PO TID as needed for muscle spasm 04/02/2017 06/18/2017 Inactive Premarin 1.25 mg tablet RxNorm: 622405 1-2 Tablet(s) PO QD 03/20/20 17 04/10/2017 Inactive hydrocodone 10 mg-acetaminophen 325 mg tablet RxNorm: 172896 1-2 Tablet(s) QID as needed for pain MUST LAST 30 DAYS 03/14/2017 01/21/2019 Inactive (Response to an electronic controlled substance refill request - RxReferenceNumber: [id number]) metoprolol tartrate 100 mg tablet RxNorm: 703865 1 Tablet(s) PO BID 02/12/2017 08/20/2017 Inactive hydrocodone 10 mg-acetaminophen 325 mg tablet RxNorm: 233656 1-2 Tablet(s) QID as needed for pain MUST LAST 30 DAYS 02/08/2017 03/09/2017 Inactive (Response to an electronic controlled substance refill request [id number]) metoprolol tartrate 100 mg tablet RxNorm: 287269 TAKE O NE TABLET BY MOUTH TWICE A DAY 01/11/2017 02/12/2017 Inactive metoprolol tartrate 100 mg tablet RxNorm: 344601 1 Tablet(s) PO BID 12/18/2016 12/17/2016 Inactive metoprolol tartrate 100 mg tablet RxNorm: 132400 1 Tablet(s) PO BID 12/18/2016 01/10/2017 Inactive furosemide 40 mg tablet RxNorm: 795639 1 Tablet(s) PO Q AM prn edema--take with potassium 12/13/2016 02/10/2017 Inactive amitriptyline 100 mg tablet RxNorm: 709625 1 Tablet(s) PO QHS 11/2812/12/2016 Inactive baclofen 20 mg tablet RxNorm: 971531 1 Tablet(s) PO TID as needed for muscle spasm 11/14/2016 04/01/2017 Inactive triamterene 75 mg-hydrochlorothiazide 50 mg tablet RxNorm: 3 21270 1 Tablet(s) PO QD 11/14/2016 11/13/2016 Inactive metolazone 2.5 mg tablet RxNorm: 360313 TAKE ONE TABLET BY MOUTH DAILY NEEDED FOR EDEMA 11/14/2016 12/12/2016 Inactive triamterene 75 mg-hydrochlorothiazide 50 mg tablet RxNorm: 3 82714 1 Tablet(s) PO QD 11/14/2016 07/18/2017 Inactive amitriptyline 50 mg tablet RxNorm: 102108 TAKE ONE TABL ET BY MOUTH AT BEDTIME NEEDED FOR SLEEP 11/14/2016 11/27/2016 Inactive Cymbalta 60 mg capsule,delayed release RxNorm: 889209 1 Capsule (s) PO QHS 11/14/2016 12/12/2016 Inactive clonidine HCl 0.1 mg tablet RxNorm: 052939 1 Tablet(s) PO QID 11/1304/04/2017 Inactive amitriptyline 50 mg tablet RxNorm: 608274 1 Tablet(s) P O QHS as needed for sleep 11/01/2016 11/27/2016 Inactive duloxetine 60 mg capsule,delayed release RxNorm: 868821 TAKE ONE CAPSULE BY MOUTH DAILY 10/20/2016 01/17/2017 Inactive allopurinol 300 mg tablet RxNorm: 808901 TAKE ONE TABLET BY LOPEZ TH DAILY 10/20/2016 01/16/2017 Inactive Lyrica 75 mg capsule RxNorm: 894095 TAKE ONE CAPSULE BY MOUTH EVERY NIGHT AT BEDTIME 10/20/2016 12/10/2016 Inactive Klor-Con 8 mEq tablet,extended release RxNorm: 780722 T FARRUKH ONE TABLET BY MOUTH TWICE A DAY 10/20/2016 01/17/2017 Inactive Celebrex 200 mg capsule RxNorm: 018816 TAKE ONE CAPSULE BY MOUT H TWICE A DAY 10/20/2016 07/18/2017 Inactive Bystolic 10 mg tablet RxNorm: 422823 TAKE ONE TABLET BY MOUTH EVERY NIGHT AT BEDTIME 10/20/2016 12/17/2016 Inactive amlodipine 5 mg-benazepril 20 mg capsule RxNorm: 643268 TAKE ONE CAPSULE BY MOUTH EVERY NIGHT AT BEDTIME -- TO REPLACE AMLODOPINE 10/20/20162016 Inactive Lipitor 10 mg tablet RxNorm: 519485 TAKE ONE TABLET BY MOUTH EVERY NIGHT AT BEDTIME 10/20/2016 01/17/2017 Inactive alprazolam 0.5 mg tablet RxNorm: 835802 3 Tablet(s) PO QHS as needed for sleep/anxiety 09/20/2016 10/31/2016 Inactive Tamiflu 75 mg capsule RxNorm: 575698 1 Capsule(s) PO QD 09/19/2016 Inactive Lyrica 75 mg capsule RxNorm: 806013 1 Capsule(s) PO QHS 09/19/2016 Inactive prednisone 20 mg tablet RxNorm: 302234 1 Tablet(s) PO QD 08/10/2016 1 10/17/2015 Inactive doxycycline hyclate 100 mg capsule RxNorm: 4706766 1 Capsule(s) PO BID 08/10/2016 08/19/2016 Inactive Medrol (Dustin) 4 mg tablets in a dose pack RxNorm: 483582 Tablet(s) PO As Directed 07/31/2016 08/22/2016 Inactive Singulair 10 mg tablet RxNorm: 036328 TAKE ONE TABLET BY MOUTH JOSÉ Y 07/27/2016 07/18/2017 Inactive hydrocodone 10 mg-acetaminophen 325 mg tablet RxNorm: 615018 1-2 Tablet(s) QID as needed for pain MUST LAST 30 DAYS 07/26/2016 08/24/2016 Inactive (Response to an electronic controlled substance refill request - RxReferenceNumber: [id number]) alprazolam 0.5 mg tablet RxNorm: 795042 3 Tablet(s) PO QHS as needed for anxiety or sleep 07/26/2016 09/20/2016 Inactive clindamycin 300 mg capsule RxNorm: 809216 1 Capsule(s) PO TID 07/2007/29/2016 Inactive Diflucan 100 mg tablet RxNorm: 810785 1 Tablet(s) PO QD 07/20/2016 Inactive Levaquin 500 mg tablet RxNorm: 610263 1 Tablet(s) PO QD 07/17/2016 Inactive Levaquin 500 mg tablet RxNorm: 058158 1 Tablet(s) PO QD 07/10/2016 Inactive Levaquin 500 mg tablet RxNorm: 672526 1 Tablet(s) PO QD 07/10/2016 Inactive mupirocin 2 % topical ointment RxNorm: 096076 TOP Apply topically to affected areas twice daily 07/06/2016 09/18/2016 Inactive Singulair 10 mg tablet RxNorm: 119689 TAKE ONE TABLET BY MOUTH JOSÉ Y 06/21/2016 01/21/2019 Inactive alprazolam 0.5 mg tablet RxNorm: 425715 TAKE THREE TABL ETS BY MOUTH AT BEDTIME NEEDED FOR SLEEP OR STRESS 05/22/2016 06/20/2016 Inactive triamterene 75 mg-hydrochlorothiazide 50 mg tablet RxNorm: 3 48225 1 Tablet(s) PO QD 04/26/2016 01/12/2020 Inactive Premarin 1.25 mg tablet RxNorm: 257685 1-2 Tablet(s) PO QD 04/26/20 16 03/20/2017 Inactive Klor-Con 8 mEq tablet,extended release RxNorm: 031994 1 Tablet( s) PO BID 04/26/2016 10/19/2016 Inactive Celebrex 200 mg capsule RxNorm: 047630 1 Capsule(s) PO BID TAKE ONE CAPSULE BY MOUTH EVERY DAY 04/26/2016 10/19/2016 Inactive Lipitor 10 mg tablet RxNorm: 282460 1 Tablet(s) PO QHS 04/26/201605/2017 Inactive allopurinol 300 mg tablet RxNorm: 297115 1 Tablet(s) PO QD TAKE ONE TABLET BY MOUTH EVERY DAY 04/26/2016 10/19/2016 Inactive amlodipine 5 mg-benazepril 20 mg capsule RxNorm: 390962 1 Capsule(s) PO QHS replaces amlodopine 04/26/2016 10/19/2016 Inactive duloxetine 60 mg capsule,delayed release RxNorm: 434685 1 Capsu le(s) PO QD 04/26/2016 10/19/2016 Inactive Bystolic 10 mg tablet RxNorm: 669325 1 Tablet(s) PO QHS 04/26/2016 Inactive Singulair 10 mg tablet RxNorm: 505319 1 Tablet(s) PO QD TAKE ONE TABLET BY MOUTH DAILY 04/26/2016 06/20/2016 Inactive clonidine HCl 0.1 mg tablet RxNorm: 279991 1 Tablet(s) PO QID 04/2610/22/2016 Inactive hydrocodone 10 mg-acetaminophen 325 mg tablet RxNorm: 480081 1-2 Tablet(s) QID as needed for pain TAKE ONE TO TWO TABLETS BY MOUTH FOUR TIMES A DAY . MUST LAST 30 DAYS 03/31/2016 04/29/2016 Inactive (Response to an electronic controlled substance refill request - RxReferenceNumber: [id number]) Klor-Con 8 mEq tablet,extended release RxNorm: 420531 T FARRUKH ONE TABLET BY MOUTH TWICE A DAY 03/24/2016 09/29/2019 Inactive prednisone 20 mg tablet RxNorm: 861936 1 Tablet(s) PO QD 03/09/2016 0 03/08/2016 Inactive prednisone 20 mg tablet RxNorm: 510404 1 Tablet(s) PO QD 03/09/2016 0 03/13/2016 Inactive alprazolam 0.5 mg tablet RxNorm: 501323 3 Tablet(s) PO QHS as needed for sleep/stress 03/02/2016 01/21/2019 Inactive mupirocin 2 % topical ointment RxNorm: 347095 TOP twice daily to affected areas of face and neck 02/21/2016 04/25/2016 Inactive clonidine HCl 0.1 mg tablet RxNorm: 016119 TAKE ONE TAB LET BY MOUTH FOUR TIMES A DAY 02/15/2016 09/29/2019 Inactive clonidine HCl 0.1 mg tablet RxNorm: 571506 1 Tablet(s) PO QID 02/1404/25/2016 Inactive Premarin 1.25 mg tablet RxNorm: 521276 1-2 Tablet(s) PO QD 02/15/20 16 03/15/2016 Inactive Klor-Con 8 mEq tablet,extended release RxNorm: 377047 T FARRUKH ONE TABLET BY MOUTH TWICE A DAY 02/15/2016 03/15/2016 Inactive potassium chloride ER 20 mEq tablet,extended release(part/cr yst) RxNorm: 043975 2 Tablet(s) PO BID 02/15/2016 03/15/2016 Inactive Macrobid 100 mg capsule RxNorm: 665959 1 Capsule(s) PO BID 01/24/20 16 01/30/2016 Inactive prednisone 20 mg tablet RxNorm: 669839 Take 3tabs PO QD x 2 days, then 2 tabs PO QD x 2 days, then 1 tab PO QD x 2 days, then 1/2 tab PO QDy x 2 days 12/23/2015 04/25/2016 Inactive Klor-Con 8 mEq tablet,extended release RxNorm: 272386 T FARRUKH ONE TABLET BY MOUTH TWICE A DAY 12/20/2015 02/14/2016 Inactive alprazolam 1 mg tablet RxNorm: 355303 1 1/2 Tablet(s) PO QHS 201501/23/2016 Inactive nystatin 100,000 unit/gram topical cream RxNorm: 889893 APPLY TO AFFECTED AREA(S) TWO TIMES A DAY 11/30/2015 12/14/2015 Inactive Singulair 10 mg tablet RxNorm: 415141 TAKE ONE TABLET BY MOUTH JOSÉ Y 11/18/2015 04/25/2016 Inactive allopurinol 300 mg tablet RxNorm: 644838 1 Tablet(s) PO QD TAKE ONE TABLET BY MOUTH EVERY DAY 10/26/2015 04/22/2016 Inactive Singulair 10 mg tablet RxNorm: 178844 TAKE ONE TABLET BY MOUTH JOSÉ Y 10/26/2015 11/17/2015 Inactive duloxetine 60 mg capsule,delayed release RxNorm: 121756 1 Capsu le(s) PO QD 10/26/2015 04/22/2016 Inactive triamterene 75 mg-hydrochlorothiazide 50 mg tablet RxNorm: 3 83325 1 Tablet(s) PO QD 10/26/2015 11/14/2016 Inactive potassium chloride ER 20 mEq tablet,extended release(part/cr yst) RxNorm: 303227 2 Tablet(s) PO BID 10/26/2015 02/14/2016 Inactive Lipitor 10 mg tablet RxNorm: 622013 1 Tablet(s) PO QHS 10/26/2015 Inactive amlodipine 5 mg-benazepril 20 mg capsule RxNorm: 044774 1 Capsule(s) PO QHS replaces amlodopine 10/26/2015 04/22/2016 Inactive Bystolic 10 mg tablet RxNorm: 150980 1 Tablet(s) PO QHS 10/26/2015 Inactive amlodipine 5 mg-benazepril 20 mg capsule RxNorm: 984958 1 Capsule(s) PO QHS replaces amlodopine 10/06/2015 10/25/2015 Inactive amlodipine 5 mg tablet RxNorm: 456887 1 Tablet(s) PO QHS 09/30/2015 0 04/25/2016 Inactive metolazone 2.5 mg tablet RxNorm: 546396 TAKE ONE TABLET BY MOUTH DAILY NEEDED FOR EDEMA 09/30/2015 01/21/2019 Inactive duloxetine 60 mg capsule,delayed release RxNorm: 255384 1 Capsu le(s) PO QD 09/30/2015 10/25/2015 Inactive cephalexin 500 mg capsule RxNorm: 363134 1 Capsule(s) PO BID 201509/23/2015 Inactive mupirocin 2 % topical ointment RxNorm: 308669 TOP twice daily to affected areas of face and neck 09/14/2015 02/20/2016 Inactive baclofen 20 mg tablet RxNorm: 283152 1 Tablet(s) PO TID as needed for muscle spasm 09/01/2015 11/14/2016 Inactive clonidine HCl 0.1 mg tablet RxNorm: 613537 1 Tablet(s) PO QID 09/0102/14/2016 Inactive alprazolam 1 mg tablet RxNorm: 809384 1 1/2 Tablet(s) PO QHS 201409/09/2015 Inactive baclofen 20 mg tablet RxNorm: 568992 1 Tablet(s) PO TID as needed for muscle spasm 07/23/2015 09/01/2015 Inactive omeprazole 40 mg capsule,delayed release RxNorm: 310719 1 Capsu le(s) PO QD 07/23/2015 04/25/2016 Inactive alprazolam 1 mg tablet RxNorm: 577929 1 1/2 Tablet(s) PO QHS 201408/10/2015 Inactive Bystolic 10 mg tablet RxNorm: 324696 1 Tablet(s) PO BID 06/24/2015 Inactive allopurinol 300 mg tablet RxNorm: 212829 1 Tablet(s) PO QD TAKE ONE TABLET BY MOUTH EVERY DAY 06/23/2015 10/20/2015 Inactive alprazolam 1 mg tablet RxNorm: 761512 1 1/2 Tablet(s) PO QHS 201407/06/2015 Inactive clonidine HCl 0.1 mg tablet RxNorm: 405525 1 Tablet(s) PO QID 06/0209/01/2015 Inactive clonidine HCl 0.1 mg tablet RxNorm: 516536 1 Tablet(s) PO QID 06/0206/01/2015 Inactive Cymbalta 60 mg capsule,delayed release RxNorm: 391800 1 Capsule (s) PO QHS 06/02/2015 08/30/2015 Inactive Cymbalta 60 mg capsule,delayed release RxNorm: 061462 1 Capsule (s) PO QHS 06/02/2015 06/01/2015 Inactive clonidine HCl 0.1 mg tablet RxNorm: 411832 1 Tablet(s) PO TID 05/3106/01/2015 Inactive replaces 0.2mg dose metolazone 2.5 mg tablet RxNorm: 270209 TAKE ONE TABLET BY MOUTH DAILY NEEDED FOR EDEMA 05/21/2015 06/19/2015 Inactive Singulair 10 mg tablet RxNorm: 286269 TAKE ONE TABLET BY MOUTH JOSÉ Y 05/21/2015 10/17/2015 Inactive Cymbalta 30 mg capsule,delayed release RxNorm: 091004 1 Capsule (s) PO QHS 05/20/2015 11/14/2016 Inactive betamethasone valerate 0.1 % topical cream RxNorm: 399953 Appli cation TOP BID 05/10/2015 04/25/2016 Inactive Bactroban 2 % topical ointment RxNorm: 077566 Application TOP BID 0 05/10/2015 06/20/2015 Inactive baclofen 20 mg tablet RxNorm: 511706 1 Tablet(s) PO TID as needed 0 04/26/2015 07/23/2015 Inactive Lipitor 10 mg tablet RxNorm: 885695 1 Tablet(s) PO QHS 04/26/201508/2016 Inactive clonidine HCl 0.1 mg tablet RxNorm: 555100 1 Tablet(s) PO TID 04/2605/30/2015 Inactive replaces 0.2mg dose Klor-Con 8 mEq tablet,extended release RxNorm: 055959 1 Tablet( s) PO BID 04/26/2015 04/25/2016 Inactive metolazone 2.5 mg tablet RxNorm: 424779 1 Tablet(s) PO QD as ne eded for edema 04/26/2015 04/25/2015 Inactive triamterene 75 mg-hydrochlorothiazide 50 mg tablet RxNorm: 3 43787 1 Tablet(s) PO QD 04/26/2015 10/22/2015 Inactive Premarin 1.25 mg tablet RxNorm: 283794 1-2 Tablet(s) PO QD 04/26/20 15 10/22/2015 Inactive Bystolic 10 mg tablet RxNorm: 313544 1 Tablet(s) PO QAM TAKE ONE TABLET BY MOUTH EVERY MORNING 04/23/2015 06/23/2015 Inactive clonidine HCl 0.1 mg tablet RxNorm: 970755 1 Tablet(s) PO TID 03/2304/25/2015 Inactive replaces 0.2mg dose nystatin 100,000 unit/gram topical cream RxNorm: 381772 Applica tion TOP BID 03/23/2015 06/20/2015 Inactive baclofen 20 mg tablet RxNorm: 965901 1 Tablet(s) PO TID as needed 0 03/23/2015 04/25/2015 Inactive Premarin 1.25 mg tablet RxNorm: 850834 1-2 Tablet(s) PO QD 03/23/20 15 04/25/2015 Inactive Klor-Con 8 mEq tablet,extended release RxNorm: 844403 1 Tablet( s) PO BID 03/23/2015 04/25/2015 Inactive cefdinir 300 mg capsule RxNorm: 000749 2 Capsule(s) PO QD 03/16/2015 03/25/2015 Inactive baclofen 20 mg tablet RxNorm: 728514 1 Tablet(s) PO TID as needed 0 03/02/2015 03/22/2015 Inactive allopurinol 300 mg tablet RxNorm: 389649 1 Tablet(s) PO QD TAKE ONE TABLET BY MOUTH EVERY DAY 02/22/2015 05/22/2015 Inactive Klor-Con M20 mEq tablet,extended release RxNorm: 579500 2 Tablet(s) PO BID to use with lasix 02/22/2015 06/20/2015 Inactive clonidine HCl 0.1 mg tablet RxNorm: 846402 1 Tablet(s) PO TID 02/1903/22/2015 Inactive replaces 0.2mg dose Lipitor 10 mg tablet RxNorm: 736508 1 Tablet(s) PO QHS 01/20/201506/2015 Inactive Lipitor 10 mg tablet RxNorm: 795748 1 Tablet(s) PO QHS 01/20/2015 Inactive Singulair 10 mg tablet RxNorm: 822815 1 Tablet(s) PO QD TAKE ONE TABLET BY MOUTH EVERY DAY 11/20/2014 05/18/2015 Inactive Lipitor 10 mg tablet RxNorm: 244735 1 Tablet(s) PO QHS 11/20/201408/2015 Inactive allopurinol 300 mg tablet RxNorm: 695667 1 Tablet(s) PO QD TAKE ONE TABLET BY MOUTH EVERY DAY 11/20/2014 02/16/2015 Inactive Bystolic 10 mg tablet RxNorm: 790986 1 Tablet(s) PO QAM TAKE ONE TABLET BY MOUTH EVERY MORNING 11/20/2014 04/22/2015 Inactive Klor-Con 8 mEq tablet,extended release RxNorm: 139366 1 Tablet( s) PO BID 11/20/2014 02/17/2015 Inactive baclofen 20 mg tablet RxNorm: 397256 1 Tablet(s) PO TID as needed 0 11/20/2014 01/21/2019 Inactive baclofen 20 mg tablet RxNorm: 647523 1 Tablet(s) PO TID as needed 0 10/27/2014 11/19/2014 Inactive baclofen 20 mg tablet RxNorm: 965141 1 Tablet(s) PO TID as needed 0 10/26/2014 03/01/2015 Inactive allopurinol 300 mg tablet RxNorm: 779000 1 Tablet(s) PO QD TAKE ONE TABLET BY MOUTH EVERY DAY 10/26/2014 11/20/2014 Inactive Bystolic 10 mg tablet RxNorm: 111792 1 Tablet(s) PO QAM TAKE ONE TABLET BY MOUTH EVERY MORNING 10/26/2014 11/20/2014 Inactive clonidine HCl 0.1 mg tablet RxNorm: 759007 1 Tablet(s) PO TID 09/2805/27/2019 Inactive replaces 0.2mg dose clonidine HCl 0.1 mg tablet RxNorm: 119619 1 Tablet(s) PO TID 09/2802/18/2015 Inactive replaces 0.2mg dose baclofen 20 mg tablet RxNorm: 382367 1 Tablet(s) PO TID as needed 1 11/01/2013 08/30/2014 Inactive Lipitor 10 mg tablet RxNorm: 546758 1 Tablet(s) PO QHS 08/31/2014 Inactive baclofen 20 mg tablet RxNorm: 293338 1 Tablet(s) PO TID as needed 1 11/01/2013 10/26/2014 Inactive triamterene 75 mg-hydrochlorothiazide 50 mg tablet RxNorm: 3 03675 1 Tablet(s) PO QD 08/31/2014 02/26/2015 Inactive Klor-Con 8 mEq tablet,extended release RxNorm: 243999 1 Tablet( s) PO BID 08/31/2014 11/20/2014 Inactive baclofen 20 mg tablet RxNorm: 833780 1 Tablet(s) PO TID as needed 1 09/30/2013 10/25/2014 Inactive baclofen 20 mg tablet RxNorm: 948347 1 Tablet(s) PO TID as needed 1 09/30/2013 08/31/2014 Inactive omeprazole 40 mg capsule,delayed release RxNorm: 120869 1 Capsu le(s) PO QD 07/21/2014 07/23/2015 Inactive Flonase 50 mcg/actuation nasal spray,suspension RxNorm: 8963 23 1 [place] NASAL BID 07/15/2014 04/09/2017 Inactive hydrocodone 10 mg-acetaminophen 325 mg tablet RxNorm: 577660 1-2 Tablet(s) QID as needed for pain TAKE ONE TO TWO TABLETS BY MOUTH FOUR TIMES A DAY . MUST LAST 30 DAYS 06/30/2014 07/27/2014 Inactive (Response to an electronic controlled substance refill request - [facility] [id number]) baclofen 20 mg tablet RxNorm: 157729 1 Tablet(s) PO TID as needed 1 07/31/2014 Inactive Singulair 10 mg tablet RxNorm: 541524 1 Tablet(s) PO QD TAKE ONE TABLET BY MOUTH EVERY DAY 05/25/2014 11/20/2014 Inactive Bystolic 10 mg tablet RxNorm: 267973 TAKE ONE TABLET BY MOUTH E VERY MORNING 05/25/2014 09/21/2014 Inactive allopurinol 300 mg tablet RxNorm: 690521 1 Tablet(s) PO QD TAKE ONE TABLET BY MOUTH EVERY DAY 05/25/2014 10/21/2014 Inactive baclofen 20 mg tablet RxNorm: 603940 1 Tablet(s) PO TID as needed 0 05/25/2014 06/29/2014 Inactive allopurinol 300 mg tablet RxNorm: 235271 TAKE ONE TABLET BY LOPEZ TH EVERY DAY 05/25/2014 09/21/2014 Inactive Singulair 10 mg tablet RxNorm: 911024 1 Tablet(s) PO QD TAKE ONE TABLET BY MOUTH EVERY DAY 05/25/2014 05/24/2014 Inactive Bystolic 10 mg tablet RxNorm: 682154 1 Tablet(s) PO QAM TAKE ONE TABLET BY MOUTH EVERY MORNING 05/25/2014 10/21/2014 Inactive metolazone 2.5 mg tablet RxNorm: 560565 1 Tablet(s) PO QD as ne eded for edema 05/18/2014 04/25/2015 Inactive Lasix 40 mg tablet RxNorm: 748218 1 Tablet(s) PO QAM s hould take potassium supplementation with this medication 05/14/2014 05/17/2014 Inactive hydrocodone 10 mg-acetaminophen 325 mg tablet RxNorm: 621391 1-2 Tablet(s) QID as needed for pain TAKE ONE TO TWO TABLETS BY MOUTH FOUR TIMES A DAY . MUST LAST 30 DAYS 05/07/2014 06/05/2014 Inactive (Response to an electronic controlled substance refill request - RxReferenceNumber: [id number]) alprazolam 0.5 mg tablet RxNorm: 301921 TAKE ONE TABLET BY MOUTH TWICE A DAY , MUST LAST 30 DAYS 05/07/2014 05/22/2016 Inactive (Response to a n electronic controlled substance refill request - RxReferenceNumber: [id number]) diclofenac sodium 75 mg tablet,delayed release RxNorm: 10361 6 1 Tablet(s) PO BID for pain 04/24/2014 07/20/2014 Inactive Celebrex 200 mg capsule RxNorm: 061027 TAKE ONE CAPSULE BY MOUT H EVERY DAY 04/24/2014 07/20/2014 Inactive alprazolam 0.5 mg tablet RxNorm: 465826 TAKE ONE TABLET BY MOUTH TWICE A DAY , MUST LAST 30 DAYS 03/24/2014 04/22/2014 Inactive (Response to a n electronic controlled substance refill request - RxReferenceNumber: [id number]) diclofenac sodium 75 mg tablet,delayed release RxNorm: 86638 6 1 Tablet(s) PO BID for pain 03/24/2014 04/24/2014 Inactive clonidine HCl 0.1 mg tablet RxNorm: 947511 1 Tablet(s) PO TID 03/2409/28/2014 Inactive replaces 0.2mg dose Klor-Con 8 mEq tablet,extended release RxNorm: 816935 1 Tablet( s) PO BID 02/26/2014 08/31/2014 Inactive diclofenac sodium 75 mg tablet,delayed release RxNorm: 67709 6 1 Tablet(s) PO BID for pain 02/25/2014 03/24/2014 Inactive hydrocodone 10 mg-acetaminophen 325 mg tablet RxNorm: 846005 1-2 Tablet(s) QID as needed for pain TAKE ONE TO TWO TABLETS BY MOUTH FOUR TIMES A DAY . MUST LAST 30 DAYS 02/25/2014 03/26/2014 Inactive (Response to an electronic controlled substance refill request - RxReferenceNumber: [id number]) alprazolam 0.5 mg tablet RxNorm: 594993 Tablet(s) PO BI D as needed for anxiety TAKE ONE TABLET BY MOUTH TWICE A DAY , MUST LAST 30 DAYS 02/25/2014 Inactive (Response to an electronic controlled [place] bstance refill request - RxReferenceNumber: [id number]) [AttnRPh: Saving apply/adjudicate RxGRP:SG20 RxBIN:[id number] RxPCN: ID#:[id number]] alprazolam 0.5 mg tablet RxNorm: 829503 Tablet(s) TAKE ONE TABLET BY MOUTH TWICE A DAY , MUST LAST 30 DAYS 01/27/2014 02/24/2014 Inactive (Respo nse to an electronic controlled substance refill request - RxReferenceNumber: [id number]) [AttnRPh: Saving apply/adjudicate RxGRP:SG20 RxBIN:[id number] RxPCN: ID#:[id number]] hydrocodone 10 mg-acetaminophen 325 mg tablet RxNorm: 093359 1-2 Tablet(s) QID as needed for pain TAKE ONE TO TWO TABLETS BY MOUTH FOUR TIMES A DAY . MUST LAST 30 DAYS 01/27/2014 02/24/2014 Inactive (Response to an electronic controlled substance refill request - RxReferenceNumber: [id number]) alprazolam 0.5 mg tablet RxNorm: 071227 TAKE ONE TABLET BY MOUTH TWICE A DAY , MUST LAST 30 DAYS 01/27/2014 01/26/2014 Inactive (Response to a n electronic controlled substance refill request - RxReferenceNumber: [id number]) Premarin 1.25 mg tablet RxNorm: 516350 1-2 Tablet(s) PO QD 01/28/20 14 07/25/2014 Inactive alprazolam 0.5 mg tablet RxNorm: 897677 TAKE ONE TABLET BY MOUTH TWICE A DAY , MUST LAST 30 DAYS 01/27/2014 01/27/2014 Inactive (Response to a n electronic controlled substance refill request - RxReferenceNumber: [id number]) hydrocodone 10 mg-acetaminophen 325 mg tablet RxNorm: 970943 TAKE ONE TO TWO TABLETS BY MOUTH FOUR TIMES A DAY . MUST LAST 30 DAYS 01/27/20142013 Inactive (Response to an electronic controlled [place] bstance refill request - RxReferenceNumber: [id number]) Celebrex 200 mg capsule RxNorm: 113552 1 Capsule(s) PO QD TAKE ONE CAPSULE BY MOUTH EVERY DAY 12/29/2013 04/27/2014 Inactive hydrocodone 10 mg-acetaminophen 325 mg tablet RxNorm: 758086 1-2 Tablet(s) PO QID as needed for severe pain 12/29/2013 01/27/2014 Inactive allopurinol 300 mg tablet RxNorm: 664563 1 Tablet(s) PO QD TAKE ONE TABLET BY MOUTH EVERY DAY 12/29/2013 05/24/2014 Inactive alprazolam 0.5 mg tablet RxNorm: 961414 TAKE ONE TABLET BY MOUTH TWICE A DAY , MUST LAST 30 DAYS 12/29/2013 01/27/2014 Inactive (Response to a n electronic controlled substance refill request - RxReferenceNumber: [id number]) Celebrex 200 mg capsule RxNorm: 524280 1 Capsule(s) PO QD TAKE ONE CAPSULE BY MOUTH EVERY DAY 12/29/2013 12/29/2013 Inactive Bystolic 10 mg tablet RxNorm: 745524 1 Tablet(s) PO QAM TAKE ONE TABLET BY MOUTH EVERY MORNING 12/29/2013 05/24/2014 Inactive Bystolic 10 mg tablet RxNorm: 910912 1 Tablet(s) PO QAM TAKE ONE TABLET BY MOUTH EVERY MORNING 12/29/2013 12/29/2013 Inactive Singulair 10 mg tablet RxNorm: 067330 1 Tablet(s) PO QD TAKE ONE TABLET BY MOUTH EVERY DAY 12/29/2013 05/25/2014 Inactive hydrocodone 10 mg-acetaminophen 325 mg tablet RxNorm: 671536 TAKE ONE TO TWO TABLETS BY MOUTH FOUR TIMES A DAY . MUST LAST 30 DAYS 12/29/20132013 Inactive (Response to an electronic controlled [place] bstance refill request - RxReferenceNumber: [id number]) Trazadone 75mg Tablet RxNorm: 1 Tablet(s) PO QHS as needed 03/23/2014 Inactive Trazadone 75mg Tablet RxNorm: 1 Tablet(s) PO QHS 12/24/20132014 Inactive Soma 350 mg tablet RxNorm: 544801 Tablet(s) PO TAKE ON E TABLET BY MOUTH THREE TIMES A DAY NEEDED FOR MUSCLE SPASMS. THIS MUST LAST 30 DAYS BETWEEN REFILLS. 12/10/2013 12/22/2013 Inactive (Appended: Cont rolled substance eRx refill - RxReferenceNumber: [id number]) diclofenac sodium 75 mg tablet,delayed release RxNorm: 57610 6 1 Tablet(s) PO BID for pain 12/10/2013 02/24/2014 Inactive allopurinol 300 mg tablet RxNorm: 493483 1 Tablet(s) PO QD 11/20/19 14 12/29/2013 Inactive alprazolam 0.5 mg tablet RxNorm: 089783 2 Tablet(s) PO BID 11/13/19 14 12/29/2013 Inactive prn clonidine 0.1 mg tablet RxNorm: 196191 1 Tablet(s) PO TID 11/12/2013 02/09/2014 Inactive replaces 0.2mg dose Klor-Con M20 mEq tablet,extended release RxNorm: 492988 2 Tablet(s) PO BID to use with lasix 11/12/2013 05/10/2014 Inactive Singulair 10 mg tablet RxNorm: 565958 1 Tablet(s) PO QD 11/12/2013 Inactive hydrocodone 10 mg-acetaminophen 325 mg tablet RxNorm: 120599 1-2 Tablet(s) PO QID as needed for severe pain 11/12/2013 12/28/2013 Inactive Bystolic 10 mg tablet RxNorm: 209874 1 Tablet(s) PO QAM 11/12/2013 Inactive Soma 350 mg tablet RxNorm: 903251 Tablet(s) PO TAKE ON E TABLET BY MOUTH THREE TIMES A DAY NEEDED FOR MUSCLE SPASMS. THIS MUST LAST 30 DAYS BETWEEN REFILLS. 10/13/2013 12/10/2013 Inactive (Appended: Cont rolled substance eRx refill - RxReferenceNumber: [id number]) hydrocodone 10 mg-acetaminophen 325 mg tablet RxNorm: 592033 1-2 Tablet(s) PO QID as needed for severe pain 10/03/2013 11/11/2013 Inactive diclofenac sodium 75 mg tablet,delayed release RxNorm: 22563 8 1 Tablet(s) PO BID for pain 09/11/2013 12/10/2013 Inactive alprazolam 0.5 mg tablet RxNorm: 086110 1 Tablet(s) PO BID May refill on 8/17/13 09/01/2013 10/30/2013 Inactive prn hydrocodone 10 mg-acetaminophen 325 mg tablet RxNorm: 279216 1-2 Tablet(s) PO QID as needed for severe pain 09/01/2013 10/02/2013 Inactive triamterene 75 mg-hydrochlorothiazide 50 mg tablet RxNorm: 3 79721 1 Tablet(s) PO QD 08/04/2013 08/31/2014 Inactive cyclobenzaprine 10 mg tablet RxNorm: 491178 1 Tablet(s) PO TID prn spasm 08/04/2013 08/13/2013 Inactive clonidine 0.1 mg tablet RxNorm: 545251 1 Tablet(s) PO TID 08/04/2013 11/11/2013 Inactive replaces 0.2mg dose cyclobenzaprine 10 mg tablet RxNorm: 866999 1 Tablet(s) PO TID prn spasm 07/23/2013 08/01/2013 Inactive hydrocodone 10 mg-acetaminophen 325 mg tablet RxNorm: 343713 2 1-2 Tablet(s) PO QID as needed for severe pain 06/09/2013 08/07/2013 Inactive Singulair 10 mg tablet RxNorm: 073325 1 Tablet(s) PO QD 05/29/2013 Inactive Klor-Con 8 mEq tablet,extended release RxNorm: 358987 1 Tablet( s) PO BID 05/29/2013 02/26/2014 Inactive allopurinol 300 mg tablet RxNorm: 114328 1 Tablet(s) PO QD 05/29/20 13 11/19/2013 Inactive Bystolic 10 mg tablet RxNorm: 199965 1 Tablet(s) PO QAM take one daily in the morning. 05/29/2013 11/11/2013 Inactive scopolamine 1.5 mg 72 hr Transderm Patch RxNorm: 143030 Application TD Q72H for motion sickness 05/26/2013 07/22/2013 Inactive Soma 350 mg tablet RxNorm: 778516 1 Tablet(s) PO TID as needed for spasm 05/19/2013 10/13/2013 Inactive diclofenac sodium 75 mg tablet,delayed release RxNorm: 85376 8 1 Tablet(s) PO BID for pain 05/14/2013 07/22/2013 Inactive allopurinol 300 mg tablet RxNorm: 498792 1 Tablet(s) PO QD 04/25/20 13 05/28/2013 Inactive alprazolam 0.5 mg tablet RxNorm: 794202 1 Tablet(s) PO BID May refill on 04/26/13 04/25/2013 06/23/2013 Inactive prn Celebrex 200 mg capsule RxNorm: 565359 1 Capsule(s) PO QD 04/16/2013 12/29/2013 Inactive alprazolam 0.5 mg tablet RxNorm: 503398 1 Tablet(s) PO BID May refill on 04/26/13 04/16/2013 04/24/2013 Inactive prn Soma 350 mg tablet RxNorm: 855365 1 Tablet(s) PO TID as needed for spasm 04/16/2013 No Stop Date Active Lasix 40 mg tablet RxNorm: 755894 1 Tablet(s) PO QAM s hould take potassium supplementation with this medication 04/16/2013 06/14/2013 Inactive clonidine 0.1 mg tablet RxNorm: 430060 1 Tablet(s) PO TID 04/16/2013 08/03/2013 Inactive replaces 0.2mg dose prednisone 20 mg tablet RxNorm: 038981 1 Tablet(s) PO BID 04/16/2013 04/20/2013 Inactive diclofenac sodium 75 mg tablet,delayed release RxNorm: 80834 8 1 Tablet(s) PO BID for pain 04/14/2013 05/13/2013 Inactive hydrocodone 10 mg-acetaminophen 325 mg tablet RxNorm: 871406 2 1-2 Tablet(s) PO QID as needed for severe pain 04/14/2013 No Stop Date Active Lasix 40 mg tablet RxNorm: 690259 1 Tablet(s) PO QAM s hould take potassium supplementation with this medication 03/31/2013 04/15/2013 Inactive Celebrex 200 mg capsule RxNorm: 448866 1 Capsule(s) PO QD 03/31/2013 04/15/2013 Inactive alprazolam 0.5 mg tablet RxNorm: 347275 1 Tablet(s) PO BID 03/28/20 13 04/15/2013 Inactive prn hydrocodone 10 mg-acetaminophen 325 mg tablet RxNorm: 738694 2 1-2 Tablet(s) PO QID as needed for severe pain 03/10/2013 No Stop Date Active metformin ER 500 mg 24 hr tablet,extended release RxNorm: 86 1018 1 Tablet(s) PO QD 03/06/2013 07/22/2013 Inactive clindamycin 300 mg capsule RxNorm: 186014 2 Capsule(s) PO TID 03/0503/14/2013 Inactive Zaroxolyn 2.5 mg tablet RxNorm: 058082 1 Tablet(s) PO QAM 03/05/2013 05/19/2015 Inactive amlodipine 10 mg tablet RxNorm: 260993 1 Tablet(s) PO QD 03/03/2013 0 05/25/2013 Inactive Norvasc 10 mg tablet RxNorm: 739522 1 Tablet(s) PO QD 02/28/201307/11 Inactive Celebrex 200 mg capsule RxNorm: 341684 1 Capsule(s) PO QD 02/28/2013 03/30/2013 Inactive diclofenac sodium 75 mg tablet,delayed release RxNorm: 40825 8 1 Tablet(s) PO BID for pain 02/14/2013 03/15/2013 Inactive Soma 350 mg tablet RxNorm: 822020 1 Tablet(s) PO TID as needed for spasm 02/14/2013 No Stop Date Active hydrocodone 10 mg-acetaminophen 325 mg tablet RxNorm: 876804 2 1-2 Tablet(s) PO QID as needed for severe pain 02/14/2013 No Stop Date Active Norvasc 10 mg tablet RxNorm: 074932 1 Tablet(s) PO QD 02/10/201302/09 Inactive Celebrex 200 mg capsule RxNorm: 018141 1 Capsule(s) PO QD 01/27/2013 01/26/2013 Inactive Premarin 1.25 mg tablet RxNorm: 665845 1-2 Tablet(s) PO QD 01/28/20 13 06/25/2013 Inactive alprazolam 0.5 mg tablet RxNorm: 445134 1 Tablet(s) PO BID 01/28/20 13 02/25/2013 Inactive prn amlodipine 5 mg tablet RxNorm: 112787 1 Tablet(s) PO QD 01/27/2013 Inactive Celebrex 200 mg capsule RxNorm: 539501 1 Capsule(s) PO QD 01/27/2013 02/27/2013 Inactive gabapentin 600 mg tablet RxNorm: 102190 1 Tablet(s) PO QHS 01/16/20 13 07/22/2013 Inactive Soma 350 mg tablet RxNorm: 639277 1 Tablet(s) PO TID as needed for spasm 01/15/2013 No Stop Date Active hydrocodone 10 mg-acetaminophen 325 mg tablet RxNorm: 734500 2 1-2 Tablet(s) PO QID as needed for severe pain 01/15/2013 No Stop Date Active Soma 350 mg tablet RxNorm: 295473 1 Tablet(s) PO TID as needed for spasm 01/13/2013 No Stop Date Active alprazolam 0.5 mg tablet RxNorm: 336718 1 Tablet(s) PO BID 12/31/19 13 01/26/2013 Inactive prn diclofenac sodium 75 mg tablet,delayed release RxNorm: 88551 8 1 Tablet(s) PO BID for pain 12/09/2012 01/07/2013 Inactive gabapentin 600 mg tablet RxNorm: 703375 1 Tablet(s) PO QHS 12/10/19 13 01/07/2013 Inactive hydrocodone 10 mg-acetaminophen 325 mg tablet RxNorm: 263312 2 1-2 Tablet(s) PO QID as needed for severe pain 12/02/2012 No Stop Date Active Levaquin 750 mg tablet RxNorm: 240862 1 Tablet(s) PO QD 11/21/2012 Inactive Singulair 10 mg tablet RxNorm: 037118 1 Tablet(s) PO QD 11/11/2012 Inactive clonidine 0.2 mg tablet RxNorm: 133004 1 Tablet(s) PO TID 11/11/2012 04/15/2013 Inactive alprazolam 0.5 mg tablet RxNorm: 113957 1 Tablet(s) PO BID 11/12/19 13 12/10/2012 Inactive prn Klor-Con 8 mEq tablet,extended release RxNorm: 117521 1 Tablet( s) PO BID 11/11/2012 03/04/2013 Inactive hydrocodone 10 mg-acetaminophen 325 mg tablet RxNorm: 018977 2 1-2 Tablet(s) PO QID as needed for severe pain 11/06/2012 No Stop Date Active alprazolam 0.5 mg tablet RxNorm: 974039 1 Tablet(s) PO BID 10/15/19 13 11/10/2012 Inactive prn hydrocodone-acetaminophen 10 mg-325 mg tablet RxNorm: 085236 2 1-2 Tablet(s) PO QID as needed for severe pain 10/10/2012 10/09/2012 Inactive allopurinol 300 mg tablet RxNorm: 534914 1 Tablet(s) PO QD 09/20/19 13 12/18/2012 Inactive alprazolam 0.5 mg tablet RxNorm: 864532 1 Tablet(s) PO BID 09/17/19 13 10/14/2012 Inactive prn hydrocodone-acetaminophen 10 mg-325 mg tablet RxNorm: 506669 2 1-2 Tablet(s) PO QID as needed for severe pain 08/22/2012 08/21/2012 Inactive Norvasc 10 mg tablet RxNorm: 608160 1 Tablet(s) PO QD 08/12/201201/10 Inactive Premarin 1.25 mg tablet RxNorm: 219390 1-2 Tablet(s) PO QD 07/30/20 12 12/26/2012 Inactive alprazolam 0.5 mg tablet RxNorm: 236567 1 Tablet(s) PO BID 07/29/20 12 08/27/2012 Inactive prn Klor-Con 8 mEq tablet,extended release RxNorm: 048139 1 Tablet( s) PO BID 07/29/2012 11/10/2012 Inactive hydrocodone-acetaminophen 10 mg-325 mg tablet RxNorm: 976350 2 1-2 Tablet(s) PO QID as needed for severe pain 07/29/2012 No Stop Date Active Premarin 1.25 mg tablet RxNorm: 011519 1-2 Tablet(s) PO QD 07/29/20 12 07/29/2012 Inactive clonidine 0.2 mg tablet RxNorm: 807770 1 Tablet(s) PO TID 07/29/2012 10/28/2012 Inactive ketorolac 10 mg tablet RxNorm: 914758 1 Tablet(s) PO QID prn he adache 07/18/2012 No Stop Date Active hydrocodone-acetaminophen 10 mg-325 mg tablet RxNorm: 971768 2 1-2 Tablet(s) PO QID as needed for severe pain 07/03/2012 No Stop Date Active amlodipine 5 mg tablet RxNorm: 291052 1 Tablet(s) PO QD 07/02/2012 Inactive allopurinol 300 mg tablet RxNorm: 098828 1 Tablet(s) PO QD 07/02/20 12 09/19/2012 Inactive Celebrex 200 mg capsule RxNorm: 954580 1 Capsule(s) PO QD for j oint pain 06/26/2012 10/23/2012 Inactive diclofenac sodium 75 mg tablet,delayed release RxNorm: 91613 8 1 Tablet(s) PO BID for pain 06/19/2012 09/16/2012 Inactive hydrocodone-acetaminophen 10 mg-325 mg tablet RxNorm: 003105 2 1-2 Tablet(s) PO QID as needed for severe pain 06/10/2012 No Stop Date Active alprazolam 0.5 mg tablet RxNorm: 851265 1 Tablet(s) PO BID 06/03/20 12 07/02/2012 Inactive prn ketorolac 10 mg tablet RxNorm: 633326 1 Tablet(s) PO Q8H 05/27/2012 0 01/21/2019 Inactive as needed for headache hydrocodone-acetaminophen 10 mg-325 mg tablet RxNorm: 161851 2 1-2 Tablet(s) PO QID as needed for severe pain 05/15/2012 No Stop Date Active allopurinol 300 mg tablet RxNorm: 759494 1 Tablet(s) PO QD 05/14/20 12 06/12/2012 Inactive allopurinol 300 mg tablet RxNorm: 369444 1 Tablet(s) PO QD 05/14/20 12 05/13/2012 Inactive amlodipine 5 mg tablet RxNorm: 805363 1 Tablet(s) PO QD 05/01/2012 Inactive amlodipine 5 mg Tab RxNorm: 349169 1 Tablet(s) PO QD 05/01/201204/30 Inactive Celebrex 200 mg capsule RxNorm: 412337 1 Capsule(s) PO QD for j oint pain 05/01/2012 06/25/2012 Inactive Singulair 10 mg tablet RxNorm: 726621 1 Tablet(s) PO QD 05/01/2012 Inactive alprazolam 0.5 mg tablet RxNorm: 547342 1 Tablet(s) PO BID 05/01/20 12 05/30/2012 Inactive prn Celebrex 200 mg Cap RxNorm: 493990 1 Capsule(s) PO QD for joint radu n 05/01/2012 04/30/2012 Inactive hydrocodone-acetaminophen 10 mg-325 mg tablet RxNorm: 813498 2 1-2 Tablet(s) PO QID as needed for severe pain 04/19/2012 No Stop Date Active Lasix 40 mg tablet RxNorm: 677567 1 Tablet(s) PO QAM s hould take potassium supplementation with this medication 04/05/2012 06/03/2012 Inactive alprazolam 0.5 mg Tab RxNorm: 686942 1 Tablet(s) PO BID 04/05/2012 Inactive prn hydrocodone-acetaminophen 10 mg-325 mg Tab RxNorm: 6304031 1-2 Tablet(s) PO QID as needed for severe pain 03/25/2012 03/24/2012 Inactive clonidine 0.2 mg Tab RxNorm: 799511 1 Tablet(s) PO TID 03/08/2012 Inactive alprazolam 0.5 mg Tab RxNorm: 282418 1 Tablet(s) PO BID 03/08/2012 Inactive prn Soma 350 mg tablet RxNorm: 410028 1 Tablet(s) PO TID for spasm 02/0903/18/2012 Inactive clonidine 0.2 mg tablet RxNorm: 426626 1 Tablet(s) PO TID 03/08/2012 07/28/2012 Inactive Celebrex 200 mg Cap RxNorm: 888700 1 Capsule(s) PO QD for joint radu n 03/01/2012 04/29/2012 Inactive amlodipine 5 mg Tab RxNorm: 629538 1 Tablet(s) PO QD 02/26/201202/24 Inactive amlodipine 5 mg Tab RxNorm: 512772 1 Tablet(s) PO QD 02/26/201204/25 Inactive Bactroban 2 % Ointment RxNorm: 068840 Application TOP QID to sores 02/23/2012 No Stop Date Active amlodipine 2.5 mg tablet RxNorm: 670378 1 Tablet(s) PO QHS 02/20/20 12 02/25/2012 Inactive doxycycline hyclate 100 mg Cap RxNorm: 7456480 1 Capsule(s) PO BID 02/20/2012 02/29/2012 Inactive hydrocodone-acetaminophen 10 mg-325 mg Tab RxNorm: 4347672 1-2 T ablet(s) PO QID 02/08/2012 No Stop Date Active alprazolam 0.5 mg Tab RxNorm: 664616 1 Tablet(s) PO BID 02/08/2012 Inactive prn Singulair 10 mg Tab RxNorm: 988475 1 Tablet(s) PO QD 02/08/201204/30 Inactive Soma 350 mg Tab RxNorm: 915682 1 Tablet(s) PO TID for spasm 012 03/07/2012 Inactive Soma 350 mg Tab RxNorm: 684942 1 Tablet(s) PO TID for spasm 02/05/2012 Inactive diclofenac sodium 75 mg tablet,delayed release RxNorm: 51359 8 1 Tablet(s) PO BID for pain 02/01/2012 03/18/2012 Inactive Celebrex 200 mg Cap RxNorm: 565398 1 Capsule(s) PO QD for joint radu n 01/30/2012 02/28/2012 Inactive Lasix 40 mg Tab RxNorm: 206493 1 Tablet(s) PO QAM 01/24/2012 03/18/20 12 Inactive potassium chloride ER 20 mEq tablet,extended release(part/cr yst) RxNorm: 184126 2 Tablet(s) PO BID 01/24/2012 02/22/2012 Inactive alprazolam 0.5 mg Tab RxNorm: 463276 1 Tablet(s) PO BID 01/11/2012 Inactive prn hydrocodone-acetaminophen 10 mg-325 mg Tab RxNorm: 4937279 1-2 T ablet(s) PO QID 01/11/2012 No Stop Date Active Ambien 10 mg Tab RxNorm: 646930 1 Tablet(s) PO QHS 01/11/2012 012 Inactive Klor-Con 8 mEq Tab RxNorm: 301596 1 Tablet(s) PO BID 01/11/201201/22 Inactive diclofenac sodium 75 mg Tab, Delayed Release RxNorm: 715429 1 Tablet(s) PO BID for pain 01/10/2012 01/31/2012 Inactive Ambien 10 mg Tab RxNorm: 880601 1 Tablet(s) PO QHS 12/11/2011 012 Inactive alprazolam 0.5 mg Tab RxNorm: 135211 1 Tablet(s) PO BID 12/11/2011 Inactive prn hydrocodone 10 mg-acetaminophen 325 mg tablet RxNorm: 612659 1-2 Tablet(s) PO TID 11/28/2011 No Stop Date Active as needed for pa in - Previous quantity #240, will start dosing for #180 in April 2011 per Doctor Td. Ambien 10 mg Tab RxNorm: 787514 1 Tablet(s) PO QHS 11/09/2011 012 Inactive alprazolam 0.5 mg Tab RxNorm: 948575 1 Tablet(s) PO BID 11/09/2011 Inactive prn hydrocodone-acetaminophen 10 mg-325 mg Tab RxNorm: 3522215 1-2 T ablet(s) PO TID 11/06/2011 No Stop Date Active as needed for pain - Previous quantity #240, will start dosing for #180 in April 2011 per Doctor Td. Singulair 10 mg Tab RxNorm: 003245 1 Tablet(s) PO QD 10/13/201110/12 Inactive Singulair 10 mg Tab RxNorm: 832990 1 Tablet(s) PO QD 10/13/201102/06 Inactive hydrocodone-acetaminophen 10 mg-325 mg Tab RxNorm: 0339500 1-2 T ablet(s) PO TID 10/10/2011 10/09/2011 Inactive as needed for pain - Previous quantity #240, will start dosing for #180 in April 2011 per Doctor Td. hydrocodone-acetaminophen 10 mg-325 mg Tab RxNorm: 9758131 1-2 T ablet(s) PO TID 10/09/2011 No Stop Date Active as needed for pain - Previous quantity #240, will start dosing for #180 in April 2011 per Doctor Td. Klor-Con 8 mEq Tab RxNorm: 015450 1 Tablet(s) PO BID 10/02/201101/09 Inactive triamterene 75 mg-hydrochlorothiazide 50 mg tablet RxNorm: 3 24856 1 Tablet(s) PO QD 09/14/2011 03/06/2013 Inactive Ambien 10 mg Tab RxNorm: 567736 1 Tablet(s) PO QHS 09/14/2011 012 Inactive hydrocodone-acetaminophen 10 mg-325 mg Tab RxNorm: 9579913 1-2 T ablet(s) PO TID 09/14/2011 No Stop Date Active as needed for pain - Previous quantity #240, will start dosing for #180 in April 2011 per Doctor Td. alprazolam 0.5 mg Tab RxNorm: 982929 1 Tablet(s) PO BID 09/14/2011 Inactive prn Zithromax 500 mg Tab RxNorm: 844504 1 Tablet(s) PO QD 09/13/201109/10 Inactive prednisone 20 mg Tab RxNorm: 855408 1 Tablet(s) PO BID 08/31/2011 Inactive Ambien 10 mg Tab RxNorm: 785447 1 Tablet(s) PO QHS 08/17/2011 011 Inactive hydrocodone-acetaminophen 10 mg-325 mg Tab RxNorm: 1255377 1-2 T ablet(s) PO TID 08/17/2011 No Stop Date Active as needed for pain - Previous quantity #240, will start dosing for #180 in April 2011 per Doctor Td. clonidine 0.2 mg Tab RxNorm: 916790 1 Tablet(s) PO TID 08/17/201112/2011 Inactive Ambien 10 mg Tab RxNorm: 148700 1 Tablet(s) PO QHS 08/17/2011 019 Inactive alprazolam 0.5 mg Tab RxNorm: 373720 1 Tablet(s) PO BID 08/17/2011 Inactive prn hydrocodone-acetaminophen 10 mg-325 mg Tab RxNorm: 2125459 1-2 T ablet(s) PO TID 08/17/2011 08/16/2011 Inactive as needed for pain - Previous quantity #240, will start dosing for #180 in April 2011 per Doctor Td. Singulair 10 mg Tab RxNorm: 677465 1 Tablet(s) PO QD 08/17/201108/16 Inactive Klor-Con 8 mEq Tab RxNorm: 151231 1 Tablet(s) PO QD 08/17/20112011 Inactive alprazolam 0.5 mg Tab RxNorm: 363900 1 Tablet(s) PO BID 07/20/2011 Inactive prn Ambien 10 mg Tab RxNorm: 828106 1 Tablet(s) PO QHS 07/20/2011 012 Inactive Singulair 10 mg Tab RxNorm: 240153 1 Tablet(s) PO QD 07/20/201107/19 Inactive Premarin 1.25 mg tablet RxNorm: 890305 2 Tablet(s) PO QD 07/20/2011 0 01/21/2019 Inactive Premarin 1.25 mg tablet RxNorm: 286448 1-2 Tablet(s) PO QD 07/20/20 11 12/16/2011 Inactive Premarin 1.25 mg Tab RxNorm: 732284 1-2 Tablet(s) PO QD 07/06/2011 Inactive alprazolam 0.5 mg Tab RxNorm: 680574 1 Tablet(s) PO BID 06/22/2011 Inactive prn alprazolam 0.5 mg Tab RxNorm: 552019 1 Tablet(s) PO BID 06/22/2011 Inactive prn Premarin 1.25 mg Tab RxNorm: 459347 1 Tablet(s) PO QD m ay do 90 day fill if desired 06/22/2011 07/05/2011 Inactive hydrocodone-acetaminophen 10 mg-325 mg Tab RxNorm: 6106639 1-2 T ablet(s) PO TID 06/22/2011 No Stop Date Active as needed for pain - Previous quantity #240, will start dosing for #180 in April 2011 per Doctor Td. clonidine 0.2 mg Tab RxNorm: 866023 1 Tablet(s) PO TID 05/25/201103/2011 Inactive triamterene-hydrochlorothiazide 75 mg-50 mg Tab RxNorm: 3108 18 1 Tablet(s) PO QD 05/25/2011 09/13/2011 Inactive alprazolam 0.5 mg Tab RxNorm: 388578 1 Tablet(s) PO BID 05/25/2011 Inactive prn hydrocodone-acetaminophen 10 mg-325 mg Tab RxNorm: 5350703 1-2 T ablet(s) PO TID 05/25/2011 No Stop Date Active as needed for pain - Previous quantity #240, will start dosing for #180 in April 2011 per Doctor Td. Robaxin-750 750 mg Tab RxNorm: 073755 2 Tablet(s) PO QHS 05/22/2011 1 Inactive prn spasm hydrocodone-acetaminophen 10 mg-325 mg Tab RxNorm: 2679588 1-2 T ablet(s) PO TID 04/26/2011 No Stop Date Active as needed for pain - Previous quantity #240, will start dosing for #180 in April 2011 per Doctor Td. alprazolam 0.5 mg Tab RxNorm: 772485 1 Tablet(s) PO BID 04/25/2011 Inactive prn Klor-Con 8 mEq Tab RxNorm: 210614 1 Tablet(s) PO QD 03/30/20112010 Inactive Klor-Con 8 mEq Tab RxNorm: 126861 1 Tablet(s) PO QD 03/29/20112010 Inactive hydrocodone-acetaminophen 10 mg-325 mg Tab RxNorm: 2744695 1-2 T ablet(s) PO TID 03/20/2011 04/25/2011 Inactive as needed for pain - Previous quantity #240, will start dosing for #180 in April 2011 per Doctor Td. alprazolam 0.5 mg Tab RxNorm: 255162 1 Tablet(s) PO BID prn 011 03/30/2011 Inactive Ambien 10 mg Tab RxNorm: 569245 1 Tablet(s) PO QHS 03/01/2011 011 Inactive cyclobenzaprine 10 mg Tab RxNorm: 436145 1 Tablet(s) PO TID 011 03/18/2012 Inactive cyclobenzaprine 10 mg Tab RxNorm: 727139 1 Tablet(s) PO TID 011 01/08/2011 Inactive cyclobenzaprine 10 mg Tab RxNorm: 574132 1 Tablet(s) PO TID 011 12/20/2010 Inactive terbinafine 250 mg Tab RxNorm: 025930 1 Tablet(s) PO QD 12/12/2010 Inactive triamterene-hydrochlorothiazide 75 mg-50 mg Tab RxNorm: 3108 18 1 Tablet(s) PO QD 12/07/2010 01/12/2020 Inactive Klor-Con 8 8 mEq Tab RxNorm: 294468 1 Tablet(s) PO QD 12/07/201001/08 Inactive Premarin 1.25 mg Tab RxNorm: 471774 2 Tablet(s) PO QD 12/07/201001/08 Inactive clonidine 0.2 mg Tab RxNorm: 402806 1 Tablet(s) PO TID 12/07/2010 Inactive hydrocodone-acetaminophen 7.5 mg-650 mg Tab RxNorm: 065914 1 Ta blet(s) PO Q4H 12/05/2010 01/21/2019 Inactive hydrocodone-acetaminophen 7.5 mg-650 mg Tab RxNorm: 467234 1 Ta blet(s) PO Q4H 10/26/2010 11/14/2010 Inactive hydrocodone-acetaminophen 7.5 mg-650 mg Tab RxNorm: 815784 1 Ta blet(s) PO Q4H 10/13/2010 10/25/2010 Inactive hydrocodone-acetaminophen 7.5 mg-650 mg Tab RxNorm: 859033 1 Ta blet(s) PO Q4H 09/15/2010 09/12/2010 Inactive alprazolam 0.5 mg Tab RxNorm: 968213 1 Tablet(s) PO BID prn 011 09/12/2010 Inactive terbinafine 250 mg Tab RxNorm: 732066 1 Tablet(s) PO QD 09/05/2010 Inactive hydrocodone-acetaminophen 7.5 mg-650 mg Tab RxNorm: 166063 1 Ta blet(s) PO Q4H 08/29/2010 09/17/2010 Inactive alprazolam 0.5 mg Tab RxNorm: 811960 1 Tablet(s) PO BID prn 010 09/27/2010 Inactive alprazolam 0.5 mg Tab RxNorm: 283856 1 Tablet(s) PO BID prn 010 09/06/2010 Inactive Klor-Con 8 mEq Tab RxNorm: 663971 1 Tablet(s) PO QD 08/08/20102010 Inactive hydrocodone-acetaminophen 7.5 mg-650 mg Tab RxNorm: 823783 1 Ta blet(s) PO Q4H 08/08/2010 08/27/2010 Inactive Ambien 10 mg Tab RxNorm: 623998 1 Tablet(s) PO QHS 08/08/2010 Inactive clonidine 0.2 mg Tab RxNorm: 185352 1 Tablet(s) PO TID 08/08/2010 Inactive Premarin 1.25 mg Tab RxNorm: 166017 2 Tablet(s) PO QD 08/08/201009/12 Inactive Ambien 10 mg Tab RxNorm: 987500 1 Tablet(s) PO QHS 07/18/2010 Inactive alprazolam 0.5 mg Tab RxNorm: 525114 1 Tablet(s) PO BID prn 010 08/07/2010 Inactive hydrocodone-acetaminophen 7.5 mg-650 mg Tab RxNorm: 049519 1 Ta blet(s) PO Q4H 07/12/2010 07/31/2010 Inactive clonidine 0.2 mg Tab RxNorm: 079744 1 Tablet(s) PO TID 06/20/2010 Inactive terbinafine 250 mg Tab RxNorm: 178868 1 Tablet(s) PO QD 05/24/2010 Inactive Clonidine 0.2 mg Tab RxNorm: 425303 1 Tablet(s) PO TID 05/24/201006/2010 Inactive Ambien 10 mg Tab RxNorm: 252122 1 Tablet(s) PO QHS 05/24/2010 010 Inactive alprazolam 0.5 mg Tab RxNorm: 056933 1 Tablet(s) PO BID 05/24/2010 Inactive Klor-Con 8 mEq Tab RxNorm: 755580 1 Tablet(s) PO QD 05/24/20102009 Inactive alprazolam 0.5 mg Tab RxNorm: 798245 2 Tablet(s) PO QD prn 05/24/20 10 07/17/2010 Inactive triamterene-hydrochlorothiazide 75 mg-50 mg Tab RxNorm: 3108 18 1 Tablet(s) PO QD 05/24/2010 11/19/2010 Inactive Ambien 10 mg Tab RxNorm: 087708 1 Tablet(s) PO QHS 05/23/2010 010 Inactive Alprazolam 0.5 mg Tab RxNorm: 911216 2 Tablet(s) PO QD prn 05/23/2005/23/2010 Inactive Premarin 1.25 mg Tab RxNorm: 388420 2 Tablet(s) PO QD 05/19/201007/12 Inactive Hydrocodone-Acetaminophen 7.5 mg-650 mg Tab RxNorm: 311691 1 Ta blet(s) PO Q4H 05/19/2010 03/20/2011 Inactive Prednisone 20 mg Tab RxNorm: 972894 1 Tablet(s) PO BID 05/17/2010 Inactive Prednisone 20 mg Tab RxNorm: 259116 1 Tablet(s) PO BID 05/06/201001/2010 Inactive Premarin 1.25 mg Tab RxNorm: 448994 Tablet(s) PO 2 M-W-F, and 1 Wh-Px-Fxc-Sun 05/05/2010 08/02/2010 Inactive Premarin 1.25 mg Tab RxNorm: 334546 Tablet(s) PO 2 M-W-F, and 1 Nn-Hi-Yff-Sun 05/04/2010 05/04/2010 Inactive Premarin 1.25 mg Tab RxNorm: 817787 Tablet(s) PO 2 M-W-F, and 1 Xd-Zn-Kde-Sun 05/04/2010 05/03/2010 Inactive Prednisone 20 mg Tab RxNorm: 757210 1 Tablet(s) PO BID 04/27/2010 Inactive Alprazolam 0.5 mg Tab RxNorm: 096352 2 Tablet(s) PO QD prn 04/26/20 10 05/22/2010 Inactive Clindamycin 300 mg Cap RxNorm: 033243 2 Capsule(s) PO TID 04/05/2010 04/18/2010 Inactive Terbinafine 250 mg Tab RxNorm: 550940 1 Tablet(s) PO QD 04/04/2010 Inactive Hydrocodone-Acetaminophen 7.5 mg-650 mg Tab RxNorm: 686042 1 Ta blet(s) PO Q4H 03/30/2010 04/18/2010 Inactive Avelox 400 mg Tab RxNorm: 082192 1 Tablet(s) PO QD 03/09/2010 010 Inactive Hydrocodone-Acetaminophen 7.5 mg-650 mg Tab RxNorm: 003448 1 Ta blet(s) PO Q4H 03/08/2010 03/27/2010 Inactive Alprazolam 0.5 mg Tab RxNorm: 240463 2 Tablet(s) PO QD prn 03/08/20 10 04/25/2010 Inactive Klor-Con 8 mEq Tab RxNorm: 795394 1 Tablet(s) PO QD when takes lasi x 03/07/2010 09/29/2019 Inactive Premarin 1.25 mg Tab RxNorm: 426272 1 Tablet(s) PO QD 03/03/201003/11 Inactive Alprazolam 0.5 mg Tab RxNorm: 195697 1 Tablet(s) PO BID PRN 010 No Stop Date Active triamterene-hydrochlorothiazide 75 mg-50 mg Tab RxNorm: 3108 18 1 Tablet(s) PO QD 02/09/2010 02/03/2011 Inactive Hydrocodone-Acetaminophen 10 mg-750 mg Tab RxNorm: 137429 1 Tablet(s) PO Q4H PRN 02/09/2010 03/20/2011 Inactive Clonidine 0.2 mg Tab RxNorm: 537434 1 Tablet(s) PO TID 01/13/201009/2009 Inactive Alprazolam 0.5 mg Tab RxNorm: 591127 1 Tablet(s) PO BID PRN 010 01/12/2010 Inactive Hydrocodone-Acetaminophen 10 mg-750 mg Tab RxNorm: 313272 1 Tablet(s) PO Q4H PRN 01/13/2010 01/12/2010 Inactive ANGELIQ 1 mg-0.5 mg Tab RxNorm: 7651162 1 Tablet(s) PO QD 12/27/2009 01/23/2010 Inactive Lasix 40 mg Tab RxNorm: 701418 1 Tablet(s) PO QAM 12/14/2009 06/11/20 10 Inactive Vitamin B12 1000mcg Tablet RxNorm: 1 Tablet(s) PO QD No Start Date Active cyclobenzaprine 10 mg tablet RxNorm: 876213 1 Tablet(s) PO TID as needed DO NOT USE WITH BACLOFEN No Start Date Active Vitamin D 5,000 unit Tab RxNorm: 1 Tablet(s) PO QD No Start Date Active vitamin E (dl, acetate) 400 unit Cap RxNorm: 036186 1 Capsule(s ) PO QD No Start Date Active Benadryl 25 mg Cap RxNorm: 6466125 Capsule(s) PO PRN No Start Date Inactive amitriptyline 100 mg tablet RxNorm: 951673 1 Tablet(s) PO QHS No St art Date 11/27/2016 Inactive Zithromax Z-Dustin 250 mg tablet RxNorm: 139389 Tablet(s) PO as di rected No Start Date 07/22/2013 Inactive Klor-Con 8 mEq tablet,extended release RxNorm: 373076 1 Tablet( s) PO BID No Start Date 07/28/2012 Inactive scopolamine 1.5 mg 72 hr Transderm Patch RxNorm: 321769 Application TD Q72H for motion sickness No Start Date 05/25/2013 Inactive Klonopin 1 mg tablet RxNorm: 561441 1-2 Tablet(s) PO QHS as nee ded for sleep No Start Date 06/20/2015 Inactive Klor-Con M20 mEq tablet,extended release RxNorm: 243765 2 Tablet(s) PO BID to use with lasix No Start Date 11/11/2013 Inactive Bystolic 5 mg tablet RxNorm: 103602 1 Tablet(s) PO QD No Start Date 1 Inactive Bystolic 10 mg tablet RxNorm: 785065 1 Tablet(s) PO BID No Start Da te 07/06/2015 Inactive Premarin 1.25 mg Tab RxNorm: 755377 Tablet(s) PO 2 -, and 1 Vf-Oi-Mio-Liss No Start Date 05/03/2010 Inactive baclofen 20 mg tablet RxNorm: 231305 1 Tablet(s) PO TID as needed for muscle spasm No Start Date 07/22/2015 Inactive hydrocodone-acetaminophen 7.5 mg-650 mg Tab RxNorm: 466989 1 Tablet(s) PO Q4H as needed for pain No Start Date 03/20/2011 Inactive albuterol sulfate 1.25 mg/3 mL Neb Solution RxNorm: 203422 1 Unit Dose INH Q4H 2boxes No Start Date 09/06/2015 Inactive Butrans 20 mcg/hour Transderm Patch RxNorm: 732073 1 TD WEEKLY apply to skin weekly after removing previous. No Start Date 07/22/2013 Inactive Medrol (Dustin) 4 mg tablets in a dose pack RxNorm: 361625 Tablet(s) PO As Directed No Start Date 07/30/2016 Inactive hydrocodone-acetaminophen 10 mg-325 mg Tab RxNorm: 3929599 1-2 Tablet(s) PO TID as needed for pain No Start Date 03/19/2011 Inactive Klonopin 1 mg tablet RxNorm: 591544 1 Tablet(s) PO QHS No Start Date 02/28/2016 Inactive honey topical RxNorm: topical No Start Date 06/16/2018 Inactive Clonidine 0.2 mg Tab RxNorm: 692650 1 Tablet(s) PO TID No Start Date 01/12/2010 Inactive ketorolac 10 mg tablet RxNorm: 147250 1 Tablet(s) PO Q8H No Start D ate 03/18/2012 Inactive as needed for headache Singulair 10 mg Tab RxNorm: 494301 1 Tablet(s) PO QD No Start Date Inactive Premarin 1.25 mg Tab RxNorm: 607607 1 Tablet(s) PO QD No Start Date 1 Inactive Flonase 50 mcg/Actuation Nasal [place] RxNorm: 6375361 1 [place] CECEL[place] AL BID No Start Date 03/18/2012 Inactive Terbinafine 250 mg Tab RxNorm: 417570 1 Tablet(s) PO QD No Start Da te 04/03/2010 Inactive Fexofenadine 180 mg Tab RxNorm: 9226091 1 Tablet(s) PO QD No Start Date 09/06/2015 Inactive baclofen 20 mg tablet RxNorm: 027421 1 Tablet(s) PO TID as needed N o Start Date 05/25/2014 Inactive Diovan 160 mg Tab RxNorm: 689825 1 Tablet(s) PO QD No Start Date 09/12 Inactive mupirocin 2 % topical ointment RxNorm: 213964 1 Application TOP QID No Start Date 04/25/2016 Inactive ZOFRAN ODT 4 mg Tab, Rapid Dissolve RxNorm: 649402 1 Tablet(s) PO Q4H No Start Date 03/18/2012 Inactive as needed for nausea and vomiting Alprazolam 0.5 mg Tab RxNorm: 502005 1 Tablet(s) PO BID PRN No Star t Date 01/12/2010 Inactive cyclobenzaprine 10 mg tablet RxNorm: 426466 1 Tablet(s) PO TID as needed for muscle spasm No Start Date 10/08/2017 Inactive Albuterol 0.083% Aerosol Solution RxNorm: 1 Appl ication INH Q4H Use one ampule every 4 hrs with nebulizer as needed for shortness of breath. No Start Date 10/09/2010 Inactive lorazepam 1 mg tablet RxNorm: 266626 1 1/2 Tablet(s) PO QHS No Star t Date 02/02/2016 Inactive Melatonin 3 mg Tab RxNorm: 057293 Tablet(s) PO PRN No Start Date 07/11 Inactive Medrol (Dustin) 4 mg Tabs in a Dose Pack RxNorm: 161729 Tablet(s) PO N o Start Date 11/28/2010 Inactive lorazepam 1 mg tablet RxNorm: 861044 1 Tablet(s) PO QHS as need ed for sleep No Start Date 01/30/2016 Inactive hydrocodone-acetaminophen 10 mg-325 mg Tab RxNorm: 5550488 1-2 Tablet(s) PO QID as needed for severe pain No Start Date 03/24/2012 Inactive celecoxib 200 mg capsule RxNorm: 010519 1 Capsule(s) PO BID No Star t Date 06/26/2019 Inactive amlodipine 5 mg-benazepril 20 mg capsule RxNorm: 742801 1 Capsu le(s) PO QD No Start Date 04/10/2017 Inactive Bystolic 20 mg tablet RxNorm: 597803 1/2 Tablet(s) PO QAM No Start Date 01/23/2016 Inactive Bystolic 20 mg tablet RxNorm: 432431 1 Tablet(s) PO QAM No Start Da te 04/25/2016 Inactive Ambien 10 mg Tab RxNorm: 372135 1 Tablet(s) PO QHS No Start Date 05/11 Inactive Klor-Con 8 mEq Tab RxNorm: 163741 1 Tablet(s) PO QD when takes lasix No Start Date 03/06/2010 Inactive aspirin 81 mg tablet RxNorm: 526002 1 Tablet(s) PO QD No Start Date 0 01/29/2018 Inactive hydrocodone-acetaminophen 10 mg-325 mg Tab RxNorm: 9705561 1-2 T ablet(s) PO QID No Start Date 01/10/2012 Inactive Bystolic 10 mg tablet RxNorm: 472992 1 Tablet(s) PO QAM take one daily in the morning. No Start Date 05/28/2013 Inactive nystatin 100,000 unit/mL Oral Susp RxNorm: 467835 5 Milliliter( s) PO QID No Start Date 03/18/2012 Inactive swish and spit scopolamine 1.5 mg 72 hr Transderm Patch RxNorm: 719420 1 Unit Dose TD Q72H for motion sickness No Start Date 12/23/2013 Inactive Hydrocodone-Acetaminophen 10 mg-750 mg Tab RxNorm: 738341 1 Tablet(s) PO Q4H PRN No Start Date 01/12/2010 Inactive Soma 350 mg tablet RxNorm: 479087 1 Tablet(s) PO TID as needed for spasm No Start Date 01/12/2013 Inactive baclofen 10 mg tablet RxNorm: 258869 1 Tablet(s) PO TID as needed for muscle spasm No Start Date 09/18/2019 Inactive Soma 350 mg Tab RxNorm: 842512 1 Tablet(s) PO TID for spasm No Star t Date 01/31/2012 Inactive Co Q-10 400 mg capsule RxNorm: 724466 1 Capsule(s) PO QD No Start D ate 01/21/2019 Inactive nystatin 100,000 unit/gram topical cream RxNorm: 202282 Applica tion TOP BID No Start Date 03/22/2015 Inactive Exforge 5 mg-160 mg Tab RxNorm: 650770 1 Tablet(s) PO QD No Start D ate 10/09/2010 Inactive Hydrocodone-Acetaminophen 7.5 mg-650 mg Tab RxNorm: 355367 1 Ta blet(s) PO Q4H No Start Date 03/07/2010 Inactive Robaxin-750 750 mg Tab RxNorm: 318599 1-2 Tablet(s) PO TID prn spasm No Start Date 05/21/2011 Inactive amlodipine 5 mg tablet RxNorm: 487828 1 Tablet(s) PO QHS No Start D ate 09/29/2015 Inactive oxycodone-acetaminophen 10 mg-325 mg tablet RxNorm: 0787422 1-2 Tablet(s) PO Q6H No Start Date 06/16/2018 Inactive Triamterene-Hydrochlorothiazide 75 mg-50 mg Tab RxNorm: 3108 18 1 Tablet(s) PO QD No Start Date 02/08/2010 Inactive Alprazolam 0.5 mg Tab RxNorm: 306882 2 Tablet(s) PO QD prn No Start Date 03/07/2010 Inactive Bystolic 20 mg tablet RxNorm: 264103 1 Tablet(s) PO QAM No Start Da te 08/17/2015 Inactive ketorolac 10 mg tablet RxNorm: 098908 1 Tablet(s) PO QID prn he adache No Start Date 07/17/2012 Inactive acyclovir 800 mg Tab RxNorm: 240796 1 Tablet(s) PO BID No Start Date 03/18/2012 Inactive duloxetine 60 mg capsule,delayed release RxNorm: 635489 1 Capsu le(s) PO QD No Start Date 09/29/2015 Inactive Norvasc 5 mg tablet RxNorm: 692765 1 Tablet(s) PO QHS No Start Date 1 10/18/2014 Inactive promethazine 25 mg tablet RxNorm: 466847 1 Tablet(s) PO Q8H use sparingly No Start Date 07/22/2013 Inactive alprazolam 0.5 mg tablet RxNorm: 486063 3 Tablet(s) PO QHS No Start Date 06/06/2015 Inactive Lunesta 3 mg tablet RxNorm: 170028 1 Tablet(s) PO QHS No Start Date 0 09/20/2017 Inactive hydrocodone-acetaminophen 10 mg-325 mg Tab RxNorm: 4957154 1-2 Tablet(s) PO TID as needed for pain No Start Date 12/10/2011 Inactive Coricidin HBP Cough & Cold 4 mg-30 mg Tab RxNorm: 9360127 Tablet (s) PO PRN No Start Date 10/09/2010 Inactive Bactroban 2 % Ointment RxNorm: 661681 Application TOP QID to so res No Start Date 02/22/2012 Inactive Flonase 50 mcg/actuation Nasal [place] RxNorm: 420380 2 [place] CECEL[place] AL QHS No Start Date 03/03/2014 Inactive Medication Administered No Medication Administered data Immunizations Vaccine Codes Date Status Tetanus, Diptheria, Pertussis CVX: 115 02/27/2014 Results Observation Observation Code Item Item Code Result Date S [facility] Location COMPREHENSIVE METABOLIC 49735 AST 15 U/L 2019 Unknown COMPREHENSIVE METABOLIC 86393 ALT 13 U/L 2019 Unknown COMPREHENSIVE METABOLIC 27411 BUN 12 mg/dL 2019 Unknown COMPREHENSIVE METABOLIC 50106 ALBUMIN 3.9 g/dL 2019 Unknown COMPREHENSIVE METABOLIC 64854 CHLORIDE 97 mmol/L 2019 Unknown COMPREHENSIVE METABOLIC 16016 Bili Total 0.4 mg/dL 09/29 Unknown COMPREHENSIVE METABOLIC 54384 ALK PHOS 130 U/L 2019 Unknown COMPREHENSIVE METABOLIC 79248 SODIUM 136 mmol/L 09/29 Unknown COMPREHENSIVE METABOLIC 51246 CREATININE 0.92 mg/dL 09/11 Unknown COMPREHENSIVE METABOLIC 64260 CALCIUM 9.1 mg/dL 2019 Unknown COMPREHENSIVE METABOLIC 63075 POTASSIUM 4.4 mmol/L 09/29 Unknown COMPREHENSIVE METABOLIC 42583 Total Protein 6.2 g/dL Unknown COMPREHENSIVE METABOLIC 63618 Glucose 391 mg/dL 2019 Unknown COMPREHENSIVE METABOLIC 45684 Bicarbonate 30 mmol/L 09/11 Unknown COMPREHENSIVE METABOLIC 15844 AGAP 9 mmol/L 2019 Unknown MEAN GLUC 8444791 Calc Mean Gluc 332 mg/dL 09/29/2019 Unkn own COMPLETE BLOOD COUNT 7098455 WBC 7.0 10e9/L 09/29/19 Unknown COMPLETE BLOOD COUNT [id number] RBC 4.69 10e12/L 2019 Unknown COMPLETE BLOOD COUNT 7759077 HEMOGLOBIN 14.6 g/dL 09/29/19 Unknown COMPLETE BLOOD COUNT [id number] HEMATOCRIT 45.2 % 09/29/19 Unknown COMPLETE BLOOD COUNT [id number] MCV 96.4 fL 0 Unknown COMPLETE BLOOD COUNT 7257783 MCH 31.1 pg 0 Unknown COMPLETE BLOOD COUNT 0673013 MCHC 32.3 g/dL 0 Unknown COMPLETE BLOOD COUNT 1010561 PLATELET COUNT 209 10e9/L Unknown COMPLETE BLOOD COUNT 6847115 Mean Plt Volume 9.8 fL Unknown COMPLETE BLOOD COUNT 5284369 Neut Auto 48.1 % 0 Unknown COMPLETE BLOOD COUNT 7202851 Lymph Auto 36.5 % 09/29/19 Unknown COMPLETE BLOOD COUNT 2377911 [place] Auto 8.6 % 0 Unknown COMPLETE BLOOD COUNT 7687795 RDW 13.4 % 0 Unknown COMPLETE BLOOD COUNT 1455679 Eos Auto 6.5 % 0 Unknown COMPLETE BLOOD COUNT 5274629 Baso Auto 0.3 % 0 Unknown COMPLETE BLOOD COUNT 8965375 Neutrophil Abs 3.37 10e9/L Unknown COMPLETE BLOOD COUNT 9342365 Lymphocyte Abs 2.56 10e9/L Unknown COMPLETE BLOOD COUNT [id number] Monocyte Abs 0.60 10e9/L 09/11 Unknown COMPLETE BLOOD COUNT 4704758 Eosinophil Abs 0.46 10e9/L Unknown COMPLETE BLOOD COUNT [id number] RDW-SD 45.9 fL 0 Unknown COMPLETE BLOOD COUNT [id number] Basophil Abs 0.02 10e9/L 09/11 Unknown LIPID GROUP 23252 Cholesterol 248 mg/dL 09/29/2019 Unkno wn LIPID GROUP 47128 Triglyceride 898 mg/dL 09/29/2019 Unkn own LIPID GROUP 12603 HDL CHOLESTEROL 41 mg/dL 09/29/2019 U nknown LIPID GROUP 38455 Chol/HDL Ratio 6.05 ratio 09/29/2019 U nknown LIPID GROUP 27818 NON-HDL Chol 207 mg/dL 09/29/2019 Unkn own LIPID GROUP 11673 LDL Cholesterol N/A Trig >400 020 Unknown GLYCOSYLATED HEMOGLOBIN TEST 79107 Hgb A1c 34469-5 13.2 % 0 09/29/2019 Unknown FREE T4 13545 T4 Free 0.75 ng/dL 09/29/2019 Unknown GFR CALC 4908059 GFR Non Afr Amr >60 mL/min 09/29/2019 Un known GFR CALC 8882038 GFR Afr Amr >60 mL/min 09/29/2019 Unknow n THYROID STIMULATING HORMONE 77735 TSH 4.245 uIU/mL 09/29/2019 Unknown COMPLETE BLOOD COUNT [id number] WBC 10.7 10e9/L 018 Unknown COMPLETE BLOOD COUNT [id number] RBC 4.59 10e12/L 2017 Unknown COMPLETE BLOOD COUNT 8135955 HEMOGLOBIN 14.8 g/dL 12/11/19 18 Unknown COMPLETE BLOOD COUNT [id number] HEMATOCRIT 44.9 % 12/11/19 18 Unknown COMPLETE BLOOD COUNT 5273416 MCV 97.8 fL 8 Unknown COMPLETE BLOOD COUNT 6879746 MCH 32.2 pg 8 Unknown COMPLETE BLOOD COUNT 2281543 MCHC 33.0 g/dL 8 Unknown COMPLETE BLOOD COUNT [id number] PLATELET COUNT 261 10e9/L 10/2017 Unknown COMPLETE BLOOD COUNT 0738666 Mean Plt Volume 9.5 fL 10/2017 Unknown COMPLETE BLOOD COUNT 1876282 Neut Auto 59.9 % 8 Unknown COMPLETE BLOOD COUNT 9376001 Lymph Auto 27.4 % 12/11/19 18 Unknown COMPLETE BLOOD COUNT 6496430 Davidson Auto 8.2 % 8 Unknown COMPLETE BLOOD COUNT 1835897 RDW 13.3 % 8 Unknown COMPLETE BLOOD COUNT 3479429 Eos Auto 4.1 % 8 Unknown COMPLETE BLOOD COUNT 8313569 Baso Auto 0.4 % 8 Unknown COMPLETE BLOOD COUNT 3194410 Neutrophil Abs 6.41 10e9/L Unknown COMPLETE BLOOD COUNT 7232315 Lymphocyte Abs 2.93 10e9/L Unknown COMPLETE BLOOD COUNT 9147894 Monocyte Abs 0.88 10e9/L 10/2017 Unknown COMPLETE BLOOD COUNT [id number] Eosinophil Abs 0.44 10e9/L Unknown COMPLETE BLOOD COUNT 7971147 RDW-SD 46.2 fL 8 Unknown COMPLETE BLOOD COUNT [id number] Basophil Abs 0.04 10e9/L 10/2017 Unknown THYROID STIMULATING HORMONE 32313 TSH 4.015 uIU/mL 12/10/2017 Unknown COMPREHENSIVE METABOLIC 99932 AST 25 U/L 2017 Unknown COMPREHENSIVE METABOLIC 10811 ALT 17 U/L 2017 Unknown COMPREHENSIVE METABOLIC 22934 BUN 19 mg/dL 2017 Unknown COMPREHENSIVE METABOLIC 73294 ALBUMIN 4.0 g/dL 2017 Unknown COMPREHENSIVE METABOLIC 80285 CHLORIDE 91 mmol/L 2017 Unknown COMPREHENSIVE METABOLIC 00265 Bili Total 0.5 mg/dL 12/10 Unknown COMPREHENSIVE METABOLIC 15091 ALK PHOS 75 U/L 2017 Unknown COMPREHENSIVE METABOLIC 99686 SODIUM 136 mmol/L 12/10 Unknown COMPREHENSIVE METABOLIC 72984 CREATININE 1.05 mg/dL 10/2017 Unknown COMPREHENSIVE METABOLIC 60978 CALCIUM 8.9 mg/dL 2017 Unknown COMPREHENSIVE METABOLIC 94408 POTASSIUM 3.4 mmol/L 12/10 Unknown COMPREHENSIVE METABOLIC 39558 Total Protein 6.5 g/dL Unknown COMPREHENSIVE METABOLIC 06650 Glucose 138 mg/dL 2017 Unknown COMPREHENSIVE METABOLIC 63865 Bicarbonate 35 mmol/L 10/2017 Unknown COMPREHENSIVE METABOLIC 18528 AGAP 10 mmol/L 2017 Unknown MEAN GLUC 5825929 Calc Mean Gluc 171 mg/dL 12/10/2017 Unkn own LIPID GROUP 49110 Cholesterol 204 mg/dL 12/10/2017 Unkno wn LIPID GROUP 04909 Triglyceride 411 mg/dL 12/10/2017 Unkn own LIPID GROUP 51673 HDL CHOLESTEROL 50 mg/dL 12/10/2017 U nknown LIPID GROUP 06733 Chol/HDL Ratio 4.08 ratio 12/10/2017 U nknown LIPID GROUP 61825 NON-HDL Chol 154 mg/dL 12/10/2017 Unkn own LIPID GROUP 86931 LDL Cholesterol N/A Trig >400 018 Unknown GLYCOSYLATED HEMOGLOBIN TEST 73907 Hgb A1c 12165-7 7.6 % 0 12/10/2017 Unknown FREE T4 07235 T4 Free 1.40 ng/dL 12/10/2017 Unknown GFR CALC 1160638 GFR Non Afr Amr 55 mL/min 12/10/2017 Unk nown GFR CALC 4177110 GFR Afr Amr >60 mL/min 12/10/2017 Unknow n GFR CALC 7030456 GFR Non Afr Amr 48 mL/min 06/28/2017 Unk nown GFR CALC 6439755 GFR Afr Amr 59 mL/min 06/28/2017 Unknown COMPREHENSIVE METABOLIC 11499 AST 32 U/L 2016 Unknown COMPREHENSIVE METABOLIC 91122 ALT 22 U/L 2016 Unknown COMPREHENSIVE METABOLIC 00263 BUN 23 mg/dL 2016 Unknown COMPREHENSIVE METABOLIC 61772 ALBUMIN 4.7 g/dL 2016 Unknown COMPREHENSIVE METABOLIC 63555 CHLORIDE 89 mmol/L 2016 Unknown COMPREHENSIVE METABOLIC 39053 Bili Total 0.5 mg/dL 06/28 Unknown COMPREHENSIVE METABOLIC 79132 ALK PHOS 90 U/L 2016 Unknown COMPREHENSIVE METABOLIC 63538 SODIUM 135 mmol/L 06/28 Unknown COMPREHENSIVE METABOLIC 41151 CREATININE 1.18 mg/dL 06/10 Unknown COMPREHENSIVE METABOLIC 66743 CALCIUM 9.7 mg/dL 2016 Unknown COMPREHENSIVE METABOLIC 34231 POTASSIUM 3.5 mmol/L 06/28 Unknown COMPREHENSIVE METABOLIC 33874 Total Protein 7.7 g/dL Unknown COMPREHENSIVE METABOLIC 12387 Glucose 129 mg/dL 2016 Unknown COMPREHENSIVE METABOLIC 01779 Bicarbonate 34 mmol/L 06/10 Unknown COMPREHENSIVE METABOLIC 49150 AGAP 12 mmol/L 2016 Unknown LIPID GROUP 58549 HDL TEST 64 MG/DL 08/27/2014 Unknown LIPID GROUP 87190 TRIG 222 MG/DL 08/27/2014 Unknown LIPID GROUP 79189 TEST LDL 209 MG/DL 08/27/2014 Unknown LIPID GROUP 17119 CHOL 317 MG/DL 08/27/2014 Unknown LIPID GROUP 15895 RCHOL/HDL 4.95 RATIO 08/27/2014 Unknow n LIPID GROUP 36683 NON-HDL CH 253 MG/DL 08/27/2014 Unknow n GFR CALC 2774519 GFR AA >60 ML/MIN 08/27/2014 Unknown GFR CALC 6706699 GFR NON-AA >60 ML/MIN 08/27/2014 Unknown COMPLETE BLOOD COUNT 1276148 WBC 7.0 10e9/L 08/27/20 14 Unknown COMPLETE BLOOD COUNT 4405608 RBC 4.98 10e12/L 2013 Unknown COMPLETE BLOOD COUNT 2179140 HGB 15.6 g/dL 4 Unknown COMPLETE BLOOD COUNT 0613722 HCT DET 46.5 % 4 Unknown COMPLETE BLOOD COUNT 4857699 MCV 93.4 fL 4 Unknown COMPLETE BLOOD COUNT 0413448 MCH 31.3 pg 4 Unknown COMPLETE BLOOD COUNT 6764983 MCHC 33.5 g/dL 4 Unknown COMPLETE BLOOD COUNT 0499448 PLT 309 10e9/L 08/27/20 14 Unknown COMPLETE BLOOD COUNT 9506355 MPV 9.6 fL 4 Unknown COMPLETE BLOOD COUNT 1392340 CADEN % 57.2 % 4 Unknown COMPLETE BLOOD COUNT 0774124 LY % 33.2 % 4 Unknown COMPLETE BLOOD COUNT 2125159 MON % 7.3 % 4 Unknown COMPLETE BLOOD COUNT 2331060 EOS % 2.0 % 4 Unknown COMPLETE BLOOD COUNT 0725968 BASO % 0.3 % 4 Unknown COMPLETE BLOOD COUNT 2189871 RDW 13.7 % 4 Unknown COMPLETE BLOOD COUNT 1855833 ABS CADEN 4.00 10e9/L 014 Unknown COMPLETE BLOOD COUNT 6374244 ABS LYMPH 2.32 10e9/L 014 Unknown COMPLETE BLOOD COUNT 6622616 ABS MONO 0.51 10e9/L 014 Unknown COMPLETE BLOOD COUNT 2198167 ABS EOS 0.14 10e9/L 014 Unknown COMPLETE BLOOD COUNT 9246772 ABS BASO 0.02 10e9/L 014 Unknown COMPLETE BLOOD COUNT 1487743 RDW-SD 45.1 fL 4 Unknown COMPREHENSIVE METABOLIC 20935 AST 13 U/L 2013 Unknown COMPREHENSIVE METABOLIC 62708 ALT 11 IU/L 2013 Unknown COMPREHENSIVE METABOLIC 18852 BUN 23 MG/DL 2013 Unknown COMPREHENSIVE METABOLIC 66375 ALBUMIN 4.4 GM/DL 2013 Unknown COMPREHENSIVE METABOLIC 89950 CHLORIDE 99 MMOL/L 2013 Unknown COMPREHENSIVE METABOLIC 85073 BILI TOT 0.5 MG/DL 2013 Unknown COMPREHENSIVE METABOLIC 02656 ALK PHOS 56 U/L 2013 Unknown COMPREHENSIVE METABOLIC 24056 SODIUM 138 MMOL/L 08/27 Unknown COMPREHENSIVE METABOLIC 61760 CREATININE 0.95 MG/DL 08/10 Unknown COMPREHENSIVE METABOLIC 87610 CALCIUM 9.8 MG/DL 2013 Unknown COMPREHENSIVE METABOLIC 97718 POTASSIUM 3.5 MMOL/L 08/27 Unknown COMPREHENSIVE METABOLIC 28539 PROT TOT 6.8 GM/DL 2013 Unknown COMPREHENSIVE METABOLIC 69995 Glucose 90 MG/DL 2013 Unknown COMPREHENSIVE METABOLIC 12099 BICARB 34 MMOL/L 2013 Unknown COMPREHENSIVE METABOLIC 32617 ANION GAP 5 MEQ/L 2013 Unknown LIPASE 88321 LIPASE 11 IU/L 07/21/2014 Unknown AMYLASE 60016 AMYLASE 39 IU/L 07/21/2014 Unknown HEMOGLOBIN A1C (GLYCOSYLATED) 2488534 A1C HPLC 55484-5 6.2 % 03/05/2013 Unknown THYROID STIMULATING HORMONE 14347 TSH 6.986 uIU/ML 03/05/2013 Unknown COMPLETE BLOOD COUNT 3235665 WBC 12.7 10e9/L 013 Unknown COMPLETE BLOOD COUNT 3722558 RBC 4.53 10e12/L 2012 Unknown COMPLETE BLOOD COUNT 6000453 HGB 14.7 g/dL 3 Unknown COMPLETE BLOOD COUNT 8342461 HCT DET 43.1 % 3 Unknown COMPLETE BLOOD COUNT 4755165 MCV 95.1 fL 3 Unknown COMPLETE BLOOD COUNT 1109207 MCH 32.5 pg 3 Unknown COMPLETE BLOOD COUNT 6995821 MCHC 34.1 g/dL 3 Unknown COMPLETE BLOOD COUNT 8952753 PLT 346 10e9/L 03/05/20 13 Unknown COMPLETE BLOOD COUNT 8524761 MPV 9.5 fL 3 Unknown COMPLETE BLOOD COUNT 4434889 CADEN % 67.6 % 3 Unknown COMPLETE BLOOD COUNT 5653389 LY % 22.1 % 3 Unknown COMPLETE BLOOD COUNT 6652580 MON % 6.6 % 3 Unknown COMPLETE BLOOD COUNT 2956539 EOS % 3.3 % 3 Unknown COMPLETE BLOOD COUNT 3744575 BASO % 0.4 % 3 Unknown COMPLETE BLOOD COUNT 9921829 RDW 14.0 % 3 Unknown COMPLETE BLOOD COUNT 4431179 ABS CADEN 8.59 10e9/L 013 Unknown COMPLETE BLOOD COUNT 2582174 ABS LYMPH 2.81 10e9/L 013 Unknown COMPLETE BLOOD COUNT 7065399 ABS MONO 0.84 10e9/L 013 Unknown COMPLETE BLOOD COUNT [id number] ABS EOS 0.42 10e9/L 013 Unknown COMPLETE BLOOD COUNT 4789698 ABS BASO 0.05 10e9/L 013 Unknown COMPLETE BLOOD COUNT 3815652 RDW-SD 46.0 fL 3 Unknown FREE T4 77275 FREE T4 1.14 NG/DL 03/05/2013 Unknown COMPREHENSIVE METABOLIC 06701 AST 17 U/L 2012 Unknown COMPREHENSIVE METABOLIC 95811 ALT 12 IU/L 2012 Unknown COMPREHENSIVE METABOLIC 57571 BUN 24 MG/DL 2012 Unknown COMPREHENSIVE METABOLIC 21381 ALBUMIN 4.2 GM/DL 2012 Unknown COMPREHENSIVE METABOLIC 13685 CHLORIDE 93 MMOL/L 2012 Unknown COMPREHENSIVE METABOLIC 18122 BILI TOT 0.5 MG/DL 2012 Unknown COMPREHENSIVE METABOLIC 13859 ALK PHOS 75 U/L 2012 Unknown COMPREHENSIVE METABOLIC 91143 SODIUM 141 MMOL/L 03/05 Unknown COMPREHENSIVE METABOLIC 87948 CREATININE 1.36 MG/DL 02/09 Unknown COMPREHENSIVE METABOLIC 65414 CALCIUM 9.2 MG/DL 2012 Unknown COMPREHENSIVE METABOLIC 33513 POTASSIUM 3.1 MMOL/L 03/05 Unknown COMPREHENSIVE METABOLIC 62576 PROT TOT 6.9 GM/DL 2012 Unknown COMPREHENSIVE METABOLIC 00012 Glucose 123 MG/DL 2012 Unknown COMPREHENSIVE METABOLIC 87353 BICARB 36 MMOL/L 2012 Unknown COMPREHENSIVE METABOLIC 37453 ANION GAP 12 MEQ/L 2012 Unknown GFR CALC 3915931 GFR AA 51.0L ML/MIN 03/05/2013 Unknow n GFR CALC 9818256 GFR NON-AA 42.0L ML/MIN 03/05/2013 Unkno wn COMPREHENSIVE METABOLIC 16440 AST 14 U/L 2012 Unknown COMPREHENSIVE METABOLIC 91248 ALT 11 IU/L 2012 Unknown COMPREHENSIVE METABOLIC 72021 BUN 16 MG/DL 2012 Unknown COMPREHENSIVE METABOLIC 08989 ALBUMIN 4.2 GM/DL 2012 Unknown COMPREHENSIVE METABOLIC 25175 CHLORIDE 98 MMOL/L 2012 Unknown COMPREHENSIVE METABOLIC 97208 BILI TOT 0.4 MG/DL 2012 Unknown COMPREHENSIVE METABOLIC 08722 ALK PHOS 77 U/L 2012 Unknown COMPREHENSIVE METABOLIC 02054 SODIUM 139 MMOL/L 09/25 Unknown COMPREHENSIVE METABOLIC 36692 CREATININE 0.86 MG/DL 09/10 Unknown COMPREHENSIVE METABOLIC 61862 CALCIUM 9.5 MG/DL 2012 Unknown COMPREHENSIVE METABOLIC 86778 POTASSIUM 3.8 MMOL/L 09/25 Unknown COMPREHENSIVE METABOLIC 09806 PROT TOT 6.8 GM/DL 2012 Unknown COMPREHENSIVE METABOLIC 60301 Glucose 91 MG/DL 2012 Unknown COMPREHENSIVE METABOLIC 86352 BICARB 32 MMOL/L 2012 Unknown COMPREHENSIVE METABOLIC 66566 ANION GAP 9 MEQ/L 2012 Unknown FREE T4 34568 FREE T4 0.98 NG/DL 09/25/2012 Unknown THYROID STIMULATING HORMONE 94336 TSH 1.736 uIU/ML 09/25/2012 Unknown C-REACTIVE PROTEIN (CRP) QUANT 13491 CRP 2.3 MG/DL 09/25/2012 Unknown COMPLETE BLOOD COUNT [id number] WBC 11.9 10e9/L 013 Unknown COMPLETE BLOOD COUNT 6834106 RBC 4.87 10e12/L 2012 Unknown COMPLETE BLOOD COUNT 1174232 HGB 15.1 g/dL 3 Unknown COMPLETE BLOOD COUNT 4837580 HCT DET 44.8 % 3 Unknown COMPLETE BLOOD COUNT 6985068 MCV 92.0 fL 3 Unknown COMPLETE BLOOD COUNT 7329434 MCH 31.0 pg 3 Unknown COMPLETE BLOOD COUNT 1172223 MCHC 33.7 g/dL 3 Unknown COMPLETE BLOOD COUNT 7218684 PLT 343 10e9/L 09/25/19 13 Unknown COMPLETE BLOOD COUNT 6983672 MPV 9.0 fL 3 Unknown COMPLETE BLOOD COUNT 3041419 CADEN % 68.2 % 3 Unknown COMPLETE BLOOD COUNT 8639119 LY % 22.4 % 3 Unknown COMPLETE BLOOD COUNT 2177288 MON % 6.4 % 3 Unknown COMPLETE BLOOD COUNT 9049288 EOS % 2.7 % 3 Unknown COMPLETE BLOOD COUNT 0491223 BASO % 0.3 % 3 Unknown COMPLETE BLOOD COUNT 4421090 RDW 13.8 % 3 Unknown COMPLETE BLOOD COUNT 7573226 ABS CADEN 8.12 10e9/L 013 Unknown COMPLETE BLOOD COUNT 0888393 ABS LYMPH 2.67 10e9/L 013 Unknown COMPLETE BLOOD COUNT 2674383 ABS MONO 0.76 10e9/L 013 Unknown COMPLETE BLOOD COUNT 5345133 ABS EOS 0.32 10e9/L 013 Unknown COMPLETE BLOOD COUNT 7078848 ABS BASO 0.04 10e9/L 013 Unknown COMPLETE BLOOD COUNT 9461277 RDW-SD 45.6 fL 3 Unknown GFR CALC 8625570 GFR AA >60 ML/MIN 09/25/2012 Unknown GFR CALC 7413663 GFR NON-AA >60 ML/MIN 09/25/2012 Unknown ERYTHROCYTE SEDIMENTATION RATE 41352 ESR 19 MM/HR 05/06/2012 Unknown VITAMIN B 12 FOLIC ACID 77759|79759 VIT B 12 922 PG/ML 04/11 Unknown VITAMIN B 12 FOLIC ACID 76429|24321 FOLIC ACID 13.6 NG/ML Unknown URIC ACID 85914 URIC ACID 7.8 MG/DL 05/06/2012 Unknown COMPLETE BLOOD COUNT 85901 WBC 11.9 10e9/L 012 Unknown COMPLETE BLOOD COUNT 51061 RBC 5.30 10e12/L 2011 Unknown COMPLETE BLOOD COUNT 75174 HGB 16.6 g/dL 2 Unknown COMPLETE BLOOD COUNT 18475 HCT DET 47.2 % 2 Unknown COMPLETE BLOOD COUNT 91707 MCV 89.1 fL 2 Unknown COMPLETE BLOOD COUNT 00741 MCH 31.3 pg 2 Unknown COMPLETE BLOOD COUNT 63886 MCHC 35.2 g/dL 2 Unknown COMPLETE BLOOD COUNT 37314 PLT 362 10e9/L 05/06/20 12 Unknown COMPLETE BLOOD COUNT 94559 MPV 9.4 fL 2 Unknown COMPLETE BLOOD COUNT 26803 CADEN % 68.2 % 2 Unknown COMPLETE BLOOD COUNT 12457 LY % 22.0 % 2 Unknown COMPLETE BLOOD COUNT 94208 MON % 6.9 % 2 Unknown COMPLETE BLOOD COUNT 41433 EOS % 2.6 % 2 Unknown COMPLETE BLOOD COUNT 39651 BASO % 0.3 % 2 Unknown COMPLETE BLOOD COUNT 26023 RDW 12.8 % 2 Unknown COMPLETE BLOOD COUNT 22167 ABS CADEN 8.12 10e9/L 012 Unknown COMPLETE BLOOD COUNT 16368 ABS LYMPH 2.62 10e9/L 012 Unknown COMPLETE BLOOD COUNT 19191 ABS MONO 0.82 10e9/L 012 Unknown COMPLETE BLOOD COUNT 77534 ABS EOS 0.31 10e9/L 012 Unknown COMPLETE BLOOD COUNT 43564 ABS BASO 0.04 10e9/L 012 Unknown COMPLETE BLOOD COUNT 46384 RDW-SD 41.5 fL 2 Unknown GFR CALC [id number] GFR AA >60 ML/MIN 05/06/2012 Unknown GFR CALC [id number] GFR NON-AA 58.0L ML/MIN 05/06/2012 Unkno wn FREE T4 [id number] FREE T4 1.15 NG/DL 05/06/2012 Unknown THYROID STIMULATING HORMONE 61847 TSH 1.568 uIU/ML 05/06/2012 Unknown COMPREHENSIVE METABOLIC 53593 AST 20 U/L 2011 Unknown COMPREHENSIVE METABOLIC 96824 ALT 12 IU/L 2011 Unknown COMPREHENSIVE METABOLIC 68476 BUN 20 MG/DL 2011 Unknown COMPREHENSIVE METABOLIC 06578 ALBUMIN 4.5 GM/DL 2011 Unknown COMPREHENSIVE METABOLIC 23357 CHLORIDE 91 MMOL/L 2011 Unknown COMPREHENSIVE METABOLIC 28737 BILI TOT 0.4 MG/DL 2011 Unknown COMPREHENSIVE METABOLIC 33337 ALK PHOS 73 U/L 2011 Unknown COMPREHENSIVE METABOLIC 69333 SODIUM 139 MMOL/L 05/06 Unknown COMPREHENSIVE METABOLIC 39599 CREATININE 1.02 MG/DL 04/11 Unknown COMPREHENSIVE METABOLIC 88196 CALCIUM 9.7 MG/DL 2011 Unknown COMPREHENSIVE METABOLIC 55611 POTASSIUM 3.1 MMOL/L 05/06 Unknown COMPREHENSIVE METABOLIC 23236 PROT TOT 7.3 GM/DL 2011 Unknown COMPREHENSIVE METABOLIC 23256 Glucose 118 MG/DL 2011 Unknown COMPREHENSIVE METABOLIC 59023 BICARB 33 MMOL/L 2011 Unknown COMPREHENSIVE METABOLIC 67405 ANION GAP 15 MEQ/L 2011 Unknown Procedures Procedure Codes Date ROUTINE VENIPUNCTURE CPT-4: 92143 09/29/2019 URINALYSIS NONAUTO W/O SCOPE CPT-4: 52154 09/29/2019 COMPREHEN METABOLIC PANEL CPT-4: 85787 09/29/2019 LIPID PANEL CPT-4: 31618 09/29/2019 A1C HPLC CPT-4: 24466 09/29/2019 ASSAY OF FREE THYROXINE CPT-4: 58503 09/29/2019 ASSAY THYROID STIM HORMONE CPT-4: 54110 09/29/2019 COMPLETE CBC W/AUTO DIFF WBC CPT-4: 01694 09/29/2019 URINALYSIS NONAUTO W/O SCOPE CPT-4: 28643 09/30/2018 MICROALBUMIN QUANTITATIVE CPT-4: 67706 09/30/2018 CEFTRIAXONE SODIUM INJECTION CPT-4: J0696 06/19/2018 THER/PROPH/DIAG INJ SC/IM CPT-4: 58601 06/19/2018 CEFTRIAXONE SODIUM INJECTION CPT-4: J0696 06/17/2018 THER/PROPH/DIAG INJ SC/IM CPT-4: 72005 06/17/2018 THER/PROPH/DIAG INJ SC/IM CPT-4: 24662 05/16/2018 KETOROLAC TROMETHAMINE INJ CPT-4: J1885 05/16/2018 ONDANSETRON HCL INJECTION CPT-4: J2405 05/16/2018 THER/PROPH/DIAG INJ SC/IM CPT-4: 68596 05/16/2018 ROUTINE VENIPUNCTURE CPT-4: 67473 03/20/2018 COMPREHEN METABOLIC PANEL CPT-4: 76271 03/20/2018 DEXAMETHASONE SODIUM PHOS CPT-4: J1100 02/11/2018 THER/PROPH/DIAG INJ SC/IM CPT-4: 81324 02/11/2018 TRIAMCINOLONE ACET INJ NOS CPT-4: J3301 02/11/2018 CEFTRIAXONE SODIUM INJECTION CPT-4: J0696 02/01/2018 THER/PROPH/DIAG INJ SC/IM CPT-4: 79568 02/01/2018 CEFTRIAXONE SODIUM INJECTION CPT-4: J0696 01/30/2018 THER/PROPH/DIAG INJ SC/IM CPT-4: 47488 01/30/2018 ROUTINE VENIPUNCTURE CPT-4: 07251 12/10/2017 ASSAY OF FREE THYROXINE CPT-4: 34907 12/10/2017 ASSAY THYROID STIM HORMONE CPT-4: 80526 12/10/2017 COMPREHEN METABOLIC PANEL CPT-4: 60650 12/10/2017 COMPLETE CBC W/AUTO DIFF WBC CPT-4: 66918 12/10/2017 LIPID PANEL CPT-4: 19243 12/10/2017 A1C HPLC CPT-4: 12396 12/10/2017 CEFTRIAXONE SODIUM INJECTION CPT-4: J0696 12/10/2017 THER/PROPH/DIAG INJ SC/IM CPT-4: 69632 12/10/2017 CEFTRIAXONE SODIUM INJECTION CPT-4: J0696 12/07/2017 THER/PROPH/DIAG INJ SC/IM CPT-4: 93539 12/07/2017 DEXAMETHASONE SODIUM PHOS CPT-4: J1100 12/07/2017 THER/PROPH/DIAG INJ SC/IM CPT-4: 94888 12/07/2017 CEFTRIAXONE SODIUM INJECTION CPT-4: J0696 10/08/2017 THER/PROPH/DIAG INJ SC/IM CPT-4: 99691 10/08/2017 CEFTRIAXONE SODIUM INJECTION CPT-4: J0696 09/21/2017 THER/PROPH/DIAG INJ SC/IM CPT-4: 11767 09/21/2017 CEFTRIAXONE SODIUM INJECTION CPT-4: J0696 09/20/2017 THER/PROPH/DIAG INJ SC/IM CPT-4: 06437 09/20/2017 REMOVAL OF NAIL PLATE CPT-4: 50067 08/29/2017 THER/PROPH/DIAG INJ SC/IM CPT-4: 12751 08/29/2017 TRIAMCINOLONE ACET INJ NOS CPT-4: J3301 08/29/2017 CEFTRIAXONE SODIUM INJECTION CPT-4: J0696 08/29/2017 THER/PROPH/DIAG INJ SC/IM CPT-4: 50961 08/29/2017 DESTRUCT PREMALG LESION (Cryosurgery) CPT-4: 67376 ROUTINE VENIPUNCTURE CPT-4: 22770 06/27/2017 ASSAY OF FREE THYROXINE CPT-4: 92685 06/27/2017 ASSAY THYROID STIM HORMONE CPT-4: 47764 06/27/2017 COMPREHEN METABOLIC PANEL CPT-4: 95481 06/27/2017 COMPLETE CBC W/AUTO DIFF WBC CPT-4: 17786 06/27/2017 EXC TR-EXT B9+REECE 0.5 CM< CPT-4: 79588 01/24/2017 THER/PROPH/DIAG INJ SC/IM CPT-4: 36290 08/02/2016 DEXAMETHASONE SODIUM PHOS CPT-4: J1100 08/02/2016 DESTRUCT PREMALG LESION (Cryosurgery) CPT-4: 52058 EXC TR-EXT B9+REECE 0.5 CM< CPT-4: 80955 08/01/2016 AEROBIC WOUND CULTURE & STN CPT-4: 73238 07/06/2016 CEFTRIAXONE SODIUM INJECTION CPT-4: J0696 05/25/2016 THER/PROPH/DIAG INJ SC/IM CPT-4: 60763 05/25/2016 THER/PROPH/DIAG INJ SC/IM CPT-4: 73849 04/26/2016 DEXAMETHASONE SODIUM PHOS CPT-4: J1100 04/26/2016 CEFTRIAXONE SODIUM INJECTION CPT-4: J0696 04/26/2016 THER/PROPH/DIAG INJ SC/IM CPT-4: 09540 04/26/2016 THER/PROPH/DIAG INJ SC/IM CPT-4: 03294 02/09/2016 TRIAMCINOLONE ACET INJ NOS CPT-4: J3301 02/09/2016 URINALYSIS NONAUTO W/O SCOPE CPT-4: 38108 01/24/2016 URINE CULTURE/ COLONY COUNT CPT-4: 58044 01/24/2016 THER/PROPH/DIAG INJ SC/IM CPT-4: 86438 12/08/2015 TRIAMCINOLONE ACET INJ NOS CPT-4: J3301 12/08/2015 THER/PROPH/DIAG INJ SC/IM CPT-4: 88195 10/07/2015 TRIAMCINOLONE ACET INJ NOS CPT-4: J3301 10/07/2015 DESTRUCT PREMALG LESION (Cryosurgery) CPT-4: 34239 THER/PROPH/DIAG INJ SC/IM CPT-4: 75855 03/16/2015 METHYLPREDNISOLONE 40 MG INJ CPT-4: J1030 03/16/2015 DESTRUCT PREMALG LESION (Cryosurgery) CPT-4: 15116 THER/PROPH/DIAG INJ SC/IM CPT-4: 61499 09/11/2014 METHYLPREDNISOLONE 40 MG INJ CPT-4: J1030 09/11/2014 TRIAMCINOLONE ACET INJ NOS CPT-4: J3301 09/11/2014 CEFTRIAXONE SODIUM INJECTION CPT-4: J0696 09/11/2014 THER/PROPH/DIAG INJ SC/IM CPT-4: 25630 09/11/2014 ROUTINE VENIPUNCTURE CPT-4: 43741 08/27/2014 COMPREHEN METABOLIC PANEL CPT-4: 59022 08/27/2014 COMPLETE CBC W/AUTO DIFF WBC CPT-4: 27778 08/27/2014 LIPID PANEL CPT-4: 89450 08/27/2014 ROUTINE VENIPUNCTURE CPT-4: 75318 07/21/2014 ASSAY OF AMYLASE CPT-4: 40941 07/21/2014 ASSAY OF LIPASE CPT-4: 58079 07/21/2014 THER/PROPH/DIAG INJ SC/IM CPT-4: 96469 07/15/2014 TRIAMCINOLONE ACET INJ NOS CPT-4: J3301 07/15/2014 ROUTINE VENIPUNCTURE CPT-4: 37564 05/14/2014 ASSAY OF FREE THYROXINE CPT-4: 16450 05/14/2014 ASSAY THYROID STIM HORMONE CPT-4: 92780 05/14/2014 COMPREHEN METABOLIC PANEL CPT-4: 88847 05/14/2014 COMPLETE CBC W/AUTO DIFF WBC CPT-4: 26742 05/14/2014 LIPID PANEL CPT-4: 06535 05/14/2014 CEFTRIAXONE SODIUM INJECTION CPT-4: J0696 04/21/2014 THER/PROPH/DIAG INJ SC/IM CPT-4: 11400 04/21/2014 THER/PROPH/DIAG INJ SC/IM CPT-4: 99767 04/21/2014 TRIAMCINOLONE ACET INJ NOS CPT-4: J3301 04/21/2014 THER/PROPH/DIAG INJ SC/IM CPT-4: 96115 03/04/2014 METHYLPREDNISOLONE 40 MG INJ CPT-4: J1030 03/04/2014 TRIAMCINOLONE ACET INJ NOS CPT-4: J3301 03/04/2014 CEFTRIAXONE SODIUM INJECTION CPT-4: J0696 03/04/2014 THER/PROPH/DIAG INJ SC/IM CPT-4: 53111 03/04/2014 TDAP VACCINE 7 YRS/> IM CPT-4: 75942 02/27/2014 IMMUNIZATION ADMIN CPT-4: 91538 02/27/2014 DESTRUCT PREMALG LESION (Cryosurgery) CPT-4: 35501 DESTRUCT PREMALG LES 2-14 CPT-4: 31755 01/13/2014 THER/PROPH/DIAG INJ SC/IM CPT-4: 39704 10/21/2013 METHYLPREDNISOLONE 40 MG INJ CPT-4: J1030 10/21/2013 TRIAMCINOLONE ACET INJ NOS CPT-4: J3301 10/21/2013 CEFTRIAXONE SODIUM INJECTION CPT-4: J0696 08/27/2013 THER/PROPH/DIAG INJ SC/IM CPT-4: 47688 08/27/2013 THER/PROPH/DIAG INJ SC/IM CPT-4: 51349 08/27/2013 METHYLPREDNISOLONE 40 MG INJ CPT-4: J1030 08/27/2013 TRIAMCINOLONE ACET INJ NOS CPT-4: J3301 08/27/2013 THER/PROPH/DIAG INJ SC/IM CPT-4: 26862 06/23/2013 METHYLPREDNISOLONE 40 MG INJ CPT-4: J1030 06/23/2013 TRIAMCINOLONE ACET INJ NOS CPT-4: J3301 06/23/2013 THER/PROPH/DIAG INJ SC/IM CPT-4: 12416 05/26/2013 METHYLPREDNISOLONE 40 MG INJ CPT-4: J1030 05/26/2013 TRIAMCINOLONE ACET INJ NOS CPT-4: J3301 05/26/2013 ROUTINE VENIPUNCTURE CPT-4: 87855 03/05/2013 ASSAY OF FREE THYROXINE CPT-4: 72462 03/05/2013 ASSAY THYROID STIM HORMONE CPT-4: 16437 03/05/2013 COMPREHEN METABOLIC PANEL CPT-4: 06666 03/05/2013 COMPLETE CBC W/AUTO DIFF WBC CPT-4: 71472 03/05/2013 A1C GLYCOSYLATED HEMOGLOBIN TEST CPT-4: 78053 013 DRAIN/INJECT JOINT/BURSA CPT-4: 40152 12/04/2012 METHYLPREDNISOLONE 40 MG INJ CPT-4: J1030 12/04/2012 TRIAMCINOLONE ACET INJ NOS CPT-4: J3301 12/04/2012 CEFTRIAXONE SODIUM INJECTION CPT-4: J0696 11/21/2012 THER/PROPH/DIAG INJ SC/IM CPT-4: 69447 11/21/2012 THER/PROPH/DIAG INJ SC/IM CPT-4: 31168 10/14/2012 METHYLPREDNISOLONE 40 MG INJ CPT-4: J1030 10/14/2012 TRIAMCINOLONE ACET INJ NOS CPT-4: J3301 10/14/2012 URINALYSIS NONAUTO W/O SCOPE CPT-4: 12153 09/27/2012 ROUTINE VENIPUNCTURE CPT-4: 11387 09/25/2012 ASSAY OF FREE THYROXINE CPT-4: 86793 09/25/2012 ASSAY THYROID STIM HORMONE CPT-4: 61748 09/25/2012 COMPREHEN METABOLIC PANEL CPT-4: 87025 09/25/2012 COMPLETE CBC W/AUTO DIFF WBC CPT-4: 73093 09/25/2012 C-REACTIVE PROTEIN CPT-4: 80079 09/25/2012 THER/PROPH/DIAG INJ SC/IM CPT-4: 91916 08/29/2012 METHYLPREDNISOLONE 40 MG INJ CPT-4: J1030 08/29/2012 TRIAMCINOLONE ACET INJ NOS CPT-4: J3301 08/29/2012 DESTRUCT PREMALG LESION (Cryosurgery) CPT-4: 64774 THER/PROPH/DIAG INJ SC/IM CPT-4: 75946 05/06/2012 METHYLPREDNISOLONE 40 MG INJ CPT-4: J1030 05/06/2012 TRIAMCINOLONE ACET INJ NOS CPT-4: J3301 05/06/2012 VITAMIN B 12 FOLIC ACID CPT-4: 63070|39690 05/06/2012 RBC SED RATE AUTOMATED CPT-4: 12696 05/06/2012 ROUTINE VENIPUNCTURE CPT-4: 17024 05/06/2012 ASSAY OF FREE THYROXINE CPT-4: 47551 05/06/2012 ASSAY THYROID STIM HORMONE CPT-4: 57837 05/06/2012 COMPREHEN METABOLIC PANEL CPT-4: 66274 05/06/2012 COMPLETE CBC W/AUTO DIFF WBC CPT-4: 94259 05/06/2012 ASSAY OF BLOOD/URIC ACID CPT-4: 77769 05/06/2012 THER/PROPH/DIAG INJ SC/IM CPT-4: 10163 03/19/2012 KETOROLAC TROMETHAMINE INJ CPT-4: J1885 03/19/2012 KETOROLAC TROMETHAMINE INJ CPT-4: J1885 01/30/2012 THER/PROPH/DIAG INJ SC/IM CPT-4: 00750 01/30/2012 PROMETHAZINE HCL INJECTION CPT-4: J2550 01/30/2012 THER/PROPH/DIAG INJ SC/IM CPT-4: 86486 01/24/2012 METHYLPREDNISOLONE 40 MG INJ CPT-4: J1030 01/24/2012 TRIAMCINOLONE ACET INJ NOS CPT-4: J3301 01/24/2012 THER/PROPH/DIAG INJ SC/IM CPT-4: 86661 09/13/2011 KETOROLAC TROMETHAMINE INJ CPT-4: J1885 09/13/2011 THER/PROPH/DIAG INJ SC/IM CPT-4: 66168 09/13/2011 PROMETHAZINE HCL INJECTION CPT-4: J2550 09/13/2011 CEFTRIAXONE SODIUM INJECTION CPT-4: J0696 07/20/2011 THER/PROPH/DIAG INJ SC/IM CPT-4: 26493 07/20/2011 THER/PROPH/DIAG INJ SC/IM CPT-4: 46656 07/20/2011 METHYLPREDNISOLONE INJECTION CPT-4: J2930 07/20/2011 URINALYSIS NONAUTO W/O SCOPE CPT-4: 49990 05/09/2011 CEFTRIAXONE SODIUM INJECTION CPT-4: J0696 05/09/2011 THER/PROPH/DIAG INJ SC/IM CPT-4: 50505 05/09/2011 THER/PROPH/DIAG INJ SC/IM CPT-4: 61885 05/09/2011 PROMETHAZINE HCL INJECTION CPT-4: J2550 05/09/2011 HYDRATION IV INFUSION INIT CPT-4: 21375 05/09/2011 DESTRUCT PREMALG LESION (Cryosurgery) CPT-4: 74469 DESTRUCT PREMALG LES 2-14 CPT-4: 20455 07/19/2010 REMOVAL OF SKIN TAGS <W/15 CPT-4: 92363 05/30/2010 THER/PROPH/DIAG INJ SC/IM CPT-4: 37676 04/05/2010 CEFTRIAXONE SODIUM INJECTION CPT-4: J0696 04/05/2010 TRIAMCINOLONE ACET INJ NOS CPT-4: J3301 04/05/2010 METHYLPREDNISOLONE 40 MG INJ CPT-4: J1030 04/05/2010 THER/PROPH/DIAG INJ SC/IM CPT-4: 65497 04/05/2010 TRIAMCINOLONE ACET INJ NOS CPT-4: J3301 03/09/2010 METHYLPREDNISOLONE 40 MG INJ CPT-4: J1030 03/09/2010 THER/PROPH/DIAG INJ SC/IM CPT-4: 57088 03/09/2010 THER/PROPH/DIAG INJ SC/IM CPT-4: 73407 03/09/2010 CEFTRIAXONE SODIUM INJECTION CPT-4: J0696 03/09/2010 [...] 1: 132/80 Code: 8480-6 BMI: 35.8 Code: 74244-6 Heart Rate 1: 88 bpm Height: 5'4" Respiratory Rate: 20 bpm SpO2: 95% Tempera ture: 36.9 (C) / 98.5 (F) Weight: 210 lbs 05/28/2019 Blood Pressure 1: 126/82 Code: 8480-6 BMI: 35.0 Code: 86401-0 Heart Rate 1: 88 bpm Height: 5'4" [...] 1: 128/90 Code: 8480-6 BMI: 37.2 Code: 48233-5 Heart Rate 1: 84 bpm Height: 5'4" Respiratory Rate: 20 bpm SpO2: 95% Tempera ture: 36.6 (C) / 97.8 (F) Weight: 217 lbs 08/27/2018 Blood Pressure 1: 128/88 Code: 8480-6 BMI: 38.3 Code: 30065-2 Heart Rate 1: 84 bpm Height: 5'4" [...] 1: 119/72 Code: 8480-6 BMI: 37.4 Code: 18900-7 Heart Rate 1: 82 bpm Height: 5'4" Respiratory Rate: 12 bpm SpO2: 94% Tempera ture: 35.2 (C) / 95.4 (F) Weight: 218 lbs 12/18/2017 Blood Pressure 1: 128/86 Code: 8480-6 BMI: 37.8 Code: 87303-0 Heart Rate 1: 84 bpm Height: 5'4" [...] 1: 128/82 Code: 8480-6 BMI: 35.5 Code: 75017-5 Heart Rate 1: 84 bpm Height: 5'4" [...] 1: 128/82 Code: 8480-6 BMI: 30.2 Code: 72892-3 Heart Rate 1: 80 bpm Height: 5'4" [...] 1: 128/86 Code: 8480-6 BMI: 32.8 Code: 37965-8 Heart Rate 1: 66 bpm Height: 5'4" Respiratory Rate: 18 bpm Temperature: 36 .3 (C) / 97.3 (F) Weight: 191 lbs 06/23/2013 Blood Pressure 1: 132/94 Code: 8480-6 BMI: 34.0 Code: 26073-3 Heart Rate 1: 84 bpm Height: 5'4" Respiratory Rate: 20 bpm Temperature: 36 .8 (C) / 98.2 (F) Weight: 198 lbs 05/26/2013 Blood Pressure 1: 114/80 Code: 8480-6 BMI: 35.0 Code: 90938-1 Heart Rate 1: 80 bpm Height: 5'4" Respiratory Rate: 20 bpm Temperature: 36 .4 (C) / 97.6 (F) Weight: 204 lbs 04/16/2013 Blood Pressure 1: 114/82 Code: 8480-6 BMI: 36.7 Code: 22082-0 Heart Rate 1: 84 bpm Height: 5'4" Respiratory Rate: 20 bpm Temperature: 36 .7 (C) / 98.0 (F) Weight: 214 lbs 03/05/2013 Blood Pressure 1: 136/90 Code: 8480-6 BMI: 37.1 Code: 08140-4 Heart Rate 1: 84 bpm Height: 5'4" [...] 1: 168/114 Code: 8480-6 BMI: 36.2 Code: 31707-7 Heart Rate 1: 104 bpm Height: 5'4" Respiratory Rate: 20 bpm Temperature: 36 .8 (C) / 98.2 (F) Weight: 211 lbs 11/22/2012 Blood Pressure 1: 128/90 Code: 8480-6 Heart Rate 1: 88 bpm Respiratory Rate: 20 bpm SpO2: 96% Temperature: 36.8 (C) / 98.2 (F) 11/21/2012 Blood Pressure 1: 146/100 Code: 8480-6 BMI: 35.7 Code: 80878-4 Heart Rate 1: 96 bpm Height: 5'4" [...] 1: 138/100 Code: 8480-6 BMI: 35.7 Code: 93840-8 Heart Rate 1: 96 bpm Height: 5'4" Respiratory Rate: 20 bpm Temperature: 36 .8 (C) / 98.2 (F) Weight: 208 lbs 05/06/2012 Blood Pressure 1: 154/102 Code: 8480-6 BMI: 34.7 Code: 45432-6 Heart Rate 1: 116 bpm Height: 5'4" Respiratory Rate: 20 bpm Temperature: 36 .8 (C) / 98.2 (F) Weight: 202 lbs 04/03/2012 Blood Pressure 1: 134/94 Code: 8480-6 BMI: 34.8 Code: 45074-1 Heart Rate 1: 108 bpm Height: 5'4" Respiratory Rate: 20 bpm Temperature: 36 .8 (C) / 98.2 (F) Weight: 203 lbs 03/19/2012 Blood Pressure 1: 148/106 Code: 8480-6 BMI: 35.0 Code: 76381-6 Heart Rate 1: 100 bpm Height: 5'4" Respiratory Rate: 20 bpm Temperature: 36 .6 (C) / 97.9 (F) Weight: 204 lbs 02/22/2012 Blood Pressure 1: 146/94 Code: 8480-6 He art Rate 1: 88 bpm 02/21/2012 Blood Pressure 1: 172/120 Code: 8480-6 B lood Pressure 2: 152/106 Code: 8480-6 Heart Rate 1: 116 bpm 02/20/2012 Blood Pressure 1: 160/100 Code: 8480-6 BMI: 32.0 Code: 09240-3 Heart Rate 1: 84 bpm Height: 5'7" Temperature: 36.5 (C) / 97.7 (F) Weight: 204 lbs 01/30/2012 Blood Pressure 1: 152/110 Code: 8480-6 BMI: 32.0 Code: 45899-0 Heart Rate 1: 116 bpm Height: 5'7" Respiratory Rate: 20 bpm Temperature: 37 .0 (C) / 98.6 (F) Weight: 204 lbs 01/24/2012 Blood Pressure 1: 146/100 Code: 8480-6 BMI: 32.0 Code: 12705-8 Heart Rate 1: 100 bpm Height: 5'7" Respiratory Rate: 20 bpm Temperature: 36 .7 (C) / 98.0 (F) Weight: 204 lbs 01/10/2012 Blood Pressure 1: 156/94 Code: 8480-6 BMI: 32.6 Code: 29727-5 Heart Rate 1: 72 bpm Height: 5'7" Respiratory Rate: 20 bpm Temperature: 36 .8 (C) / 98.2 (F) Weight: 208 lbs 12/11/2011 Blood Pressure 1: 146/100 Code: 8480-6 Heart Rat e 1: 116 bpm Height: 5'7" Respiratory Rate: 20 bpm Temperature: 36.9 (C) / 98.4 (F) We ight: 11/09/2011 Blood Pressure 1: 148/96 Code: 8480-6 BMI: 32.1 Code: 76763-1 Heart Rate 1: 116 bpm Height: 5'7" Respiratory Rate: 20 bpm Temperature: 36 .7 (C) / 98.0 (F) Weight: 205 lbs 09/13/2011 Blood Pressure 1: 126/88 Code: 8480-6 Heart Rate 1: 88 bpm Height: 5'7" Respiratory Rate: 20 bpm Temperature: 36.9 (C) / 98.4 (F) We ight: 08/31/2011 Blood Pressure 1: 118/82 Code: 8480-6 BMI: 32.0 Code: 88581-8 Heart Rate 1: 80 bpm Height: 5'7" Temperature: 36.4 (C) / 97.6 (F) Weight: 204 lbs 07/06/2011 Blood Pressure 1: 128/86 Code: 8480-6 BMI: 30.9 Code: 83849-2 Heart Rate 1: 92 bpm Height: 5'7" Respiratory Rate: 20 bpm Temperature: 36 .9 (C) / 98.4 (F) Weight: 197 lbs 06/06/2011 Blood Pressure 1: 112/74 Code: 8480-6 BMI: 31.0 Code: 79926-4 Heart Rate 1: 72 bpm Height: 5'7" [...] 1: 128/92 Code: 8480-6 BMI: 33.6 Code: 05345-4 Heart Rate 1: 104 bpm Height: 5'4" [...] Check-up Encounters Encounter Performer Location Codes Date ([id number]) OFFICE/OUTPATIENT VISIT EST Diagnosis: Essential (primary) hypertension[ICD10: I10] Diagnosis: Type 2 diabetes mellitus with hyperglycemia[ICD10: E11.65] Diagnosis: Allergic rhinitis[ICD10: J30.9] María Elena JUARES [employer] CPT-4: 98259 01/13/2020 ([id number]) OFFICE/OUTPATIENT VISIT EST Diagnosis: Type 2 diabetes mellitus with hyperglycemia[ICD10: E11.65] María Elena JUARES AZZURRO [employer] CPT-4: 14410 11/20/2019 ([id number]) OFFICE/OUTPATIENT VISIT EST Diagnosis: Ingrowing nail[ICD10: L60.0] Diagnosis: Type 2 diabetes mellitus with hyperglycemia[ICD10: E11.65] Kathleen JUARES AZZURRO [employer] CPT-4: 16677 10/07/2019 ([id number]) OFFICE/OUTPATIENT VISIT EST Diagnosis: DM w/o complication type II, uncontrolled[ICD10: E11.65] Diagnosis: Hypertriglyceridemia[ICD10: E78.1] Diagnosis: Essential hypertension[ICD10: I10] María Elena JEAN Fabiola APPIAH DO [facility] CPT-4: 12874 09/30/2019 ([id number]) NURSE/OUTPATIENT VISIT EST Diagnosis: Essential (primary) hypertension[ICD10: I10] Diagnosis: Cervicalgia[ICD10: M54.2] Diagnosis: Hyperglycemia, unspecified[ICD10: R73.9] Diagnosis: Mixed hyperlipidemia[ICD10: E78.2] María Elena JEAN Fabiola APPIAH [employer] [facility] CPT-4: 16071 09/29/2019 ([id number]) OFFICE/OUTPATIENT VISIT EST Diagnosis: Essential (primary) hypertension[ICD10: I10] Diagnosis: Fall from bed, sequela[ICD10: W06.XXXS] María Elena REED LucioJj TD GAR[facility] CPT-4: 73041 05/28/2019 ([id number]) NURSE/OUTPATIENT VISIT EST Diagnosis: Essential (primary) hypertension[ICD10: I10] María Elena MONTEROQUELINE LucioJj TD [facility] CPT-4: 25118 05/19/2019 ([id number]) OFFICE/OUTPATIENT VISIT EST Diagnosis: Essential (primary) hypertension[ICD10: I10] Diagnosis: Type 2 diabetes mellitus with hyperglycemia[ICD10: E11.65] Diagnosis: Intervertebral disc disorders with radiculopathy, 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] Diagnosis: Hormone replacement therapy[ICD10: Z79.890] María Elena JUARES LucioJj TD [facility] CPT-4: 24878 01/22/2019 ([id number]) OFFICE/OUTPATIENT VISIT EST Diagnosis: Essential (primary) hypertension[ICD10: I10] Diagnosis: Type 2 diabetes mellitus with hyperglycemia[ICD10: E11.65] María Elenagael MONTEROQUELINE LucioJj TD [facility] CPT-4: 15934 09/30/2018 ([id number]) OFFICE/OUTPATIENT VISIT EST Diagnosis: Pain in left elbow[ICD10: M25.522] Diagnosis: Acute stress reaction[ICD10: F43.0] Diagnosis: Primary insomnia[ICD10: F51.01] Diagnosis: Abnormal weight gain[ICD10: R63.5] María Elenagael APPIAH [facility] CPT-4: 72839 08/27/2018 ([id number]) OFFICE/OUTPATIENT VISIT EST Diagnosis: Acute recurrent sinusitis, unspecified[ICD10: J01.91] Diagnosis: Follicular disorder, unspecified[ICD10: L73.9] Diagnosis: Tinea corporis[ICD10: B35.4] María Elena APPIAH [facility] CPT-4: 02748 08/09/2018 ([id number]) OFFICE/OUTPATIENT VISIT EST Diagnosis: Tinea corporis[ICD10: B35.4] Diagnosis: Anxiety disorder, unspecified[ICD10: F41.9] Diagnosis: Menopausal and female climacteric states[ICD10: N95.1] María Elena APPIAH [facility] CPT-4: 80247 07/22/2018 ([id number]) NURSE/OUTPATIENT VISIT EST Diagnosis: Cellulitis of right toe[ICD10: L03.031] [facility]: 78375 06/19/2018 ([id number]) OFFICE/OUTPATIENT VISIT EST Diagnosis: Cellulitis of right toe[ICD10: L03.031] Kathleen APPIAH [facility] CPT-4: 78603 06/17/2018 ([id number]) OFFICE/OUTPATIENT VISIT EST Diagnosis: Migraine without aura, intractable, without status migrainosus[ICD10: G43.019] Diagnosis: Zoster without complications[ICD10: B02.9] Kathleen APPIAH [facility] CPT-4: 83548 05/16/2018 ([id number]) OFFICE/OUTPATIENT VISIT EST Diagnosis: Cellulitis of right lower limb[ICD10: L03.115] Kathleen APPIAH [facility] CPT-4: 26340 03/20/2018 ([id number]) OFFICE/OUTPATIENT VISIT EST Diagnosis: Cellulitis of right lower limb[ICD10: L03.115] Kathleen APPIAH [facility] CPT-4: 05685 03/18/2018 ([id number]) OFFICE/OUTPATIENT VISIT EST Diagnosis: Cellulitis of right lower limb[ICD10: L03.115] Kathleen APPIAH DO [facility] CPT-4: 22861 03/15/2018 ([id number]) OFFICE/OUTPATIENT VISIT EST Diagnosis: Acute sinusitis, unspecified[ICD10: J01.90] Kathleen APPIAH DO [facility] CPT-4: 44687 02/11/2018 ([id number]) NURSE/OUTPATIENT VISIT EST Diagnosis: Otitis media, unspecified, right ear[ICD10: H66.91] María Elena APPIAH DO [facility] CPT-4: 10950 02/01/2018 ([id number]) OFFICE/OUTPATIENT VISIT EST Diagnosis: Acute suppurative otitis media without spontaneous rupture of ear drum, left ear[ICD10: H66.002] Diagnosis: Abnormal weight gain[ICD10: R63.5] Diagnosis: Intervertebral disc disorders with radiculopathy, 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] Kathleen APPIAH DO [facility] CPT-4: 99 214 01/30/2018 ([id number]) PREV VISIT EST AGE 40-64 Diagnosis: Encounter for general adult medical examination without abnormal findings[ICD10: Z00.00] Diagnosis: Essential (primary) hypertension[ICD10: I10] Diagnosis: Mixed hyperlipidemia[ICD10: E78.2] Diagnosis: Type 2 diabetes mellitus with hyperglycemia[ICD10: E11.65] Diagnosis: 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] María Elena APPIAH DO [facility] CPT-4: 04302 12/18/2017 ([id number]) OFFICE/OUTPATIENT VISIT EST Diagnosis: Cellulitis of right toe[ICD10: L03.031] Diagnosis: Mixed hyperlipidemia[ICD10: E78.2] Diagnosis: Essential (primary) hypertension[ICD10: I10] Diagnosis: Hyperglycemia, unspecified[ICD10: R73.9] Diagnosis: Nontoxic goiter, 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] María Elena APPIAH DO [facility] CPT-4: 83232 12/10/2017 ([id number]) OFFICE/OUTPATIENT VISIT EST Diagnosis: Cellulitis of right toe[ICD10: L03.031] Diagnosis: Acute sinusitis, unspecified[ICD10: J01.90] Kathleen APPIAH DO [facility] CPT-4: 17465 12/07/2017 OFFICE/OUTPATIENT VISIT EST Diagnosis: Acute maxillary sinusitis, unspecified[ICD10: J01.00] Kathleen APPIAH DO [facility] CPT-4: 44523 10/08/2017 ([id number]) OFFICE/OUTPATIENT VISIT EST Diagnosis: Cellulitis of left toe[ICD10: L03.032] María Elena APPIAH DO [facility] CPT-4: 74409 09/21/2017 ([id number]) OFFICE/OUTPATIENT VISIT EST Diagnosis: Insomnia, unspecified[ICD10: G47.00] Diagnosis: Major depressive disorder, single episode, unspecified[ICD10: F32.9] Diagnosis: Anxiety disorder, unspecified[ICD10: F41.9] Diagnosis: Cellulitis of left toe[ICD10: L03.032] Diagnosis: Snoring[ICD10: R06.83] Kathleen APPIAH DO [facility] CPT-4: 80276 09/20/2017 ([id number]) OFFICE/OUTPATIENT VISIT EST Diagnosis: Cellulitis of left toe[ICD10: L03.032] María Elena APPIAH DO [facility] CPT-4: 30668 07/19/2017 OFFICE/OUTPATIENT VISIT EST Diagnosis: Chronic sinusitis, unspecified[ICD10: J32.9] Diagnosis: Generalized hyperhidrosis[ICD10: R61] Kathleen APPIAH DO [facility] CPT-4: 03680 06/27/2017 ([id number]) OFFICE/OUTPATIENT VISIT EST Diagnosis: Intervertebral disc disorders with radiculopathy, 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] Diagnosis: Primary insomnia[ICD10: F51.01] Diagnosis: Other fatigue[ICD10: R53.83] María Elena APPIAH DO [facility] CPT-4: 22194 04/10/2017 ([id number]) OFFICE/OUTPATIENT VISIT EST Diagnosis: Primary insomnia[ICD10: F51.01] Diagnosis: Localized edema[ICD10: R60.0] Diagnosis: 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] María Elena APPIAH DO [facility] CPT-4: 23339 12/13/2016 ([id number]) OFFICE/OUTPATIENT VISIT EST Diagnosis: Primary insomnia[ICD10: F51.01] Diagnosis: Cyanosis[ICD10: R23.0] María Elena [facility] CPT-4: 04978 11/01/2016 ([id number]) PREV VISIT EST AGE 40-64 Diagnosis: Encounter for gynecological examination (general) (routine) without abnormal findings[ICD10: Z01.419] Diagnosis: Encounter for routine child health examination without abnormal findings[ICD10: Z00.129] María Elena APPIAH [facility] CPT-4: 02655 10/17/2016 ([id number]) OFFICE/OUTPATIENT VISIT EST Diagnosis: Other seasonal allergic rhinitis[ICD10: J30.2] María Elena APPIAH [facility] CPT-4: 31102 10/10/2016 ([id number]) OFFICE/OUTPATIENT VISIT EST Diagnosis: Pain in left arm[ICD10: M79.602] Diagnosis: Contact with and (suspected) exposure to potentially hazardous body fluids[ICD10: Z77.21] Diagnosis: 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, 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] Diagnosis: Unspecified open wound, right foot, sequela[ICD10: S91.301S] María Elena APPIAH DO [facility] CPT-4: 03890 09/19/2016 ([id number]) OFFICE/OUTPATIENT VISIT EST Diagnosis: Chronic sinusitis, unspecified[ICD10: J32.9] Diagnosis: Allergic rhinitis due to pollen[ICD10: J30.1] María Elena APPIAH [facility] CPT-4: 65190 08/24/2016 ([id number]) OFFICE/OUTPATIENT VISIT EST Diagnosis: Acute bronchitis, unspecified[ICD10: J20.9] María Elena APPIAH DO [facility] CPT-4: 13729 08/16/2016 ([id number]) OFFICE/OUTPATIENT VISIT EST Diagnosis: Otitis media, unspecified, right ear[ICD10: H66.91] Diagnosis: Acute bronchitis, unspecified[ICD10: J20.9] María [facility] [facility] CPT-4: 96129 08/10/2016 ([id number]) OFFICE/OUTPATIENT VISIT EST Diagnosis: Acute recurrent sinusitis, unspecified[ICD10: J01.91] Diagnosis: Allergic rhinitis due to pollen[ICD10: J30.1] María Elena APPIAH DO [facility] CPT-4: 21816 08/02/2016 ([id number]) OFFICE/OUTPATIENT VISIT EST Diagnosis: Pain in unspecified joint[ICD10: M25.50] María Elena APPIAH DO [facility] CPT-4: 94536 07/27/2016 OFFICE/OUTPATIENT VISIT EST Diagnosis: 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] Diagnosis: Acute recurrent sinusitis, unspecified[ICD10: J01.91] Diagnosis: Other fatigue[ICD10: R53.83] Diagnosis: Primary insomnia[ICD10: F51.01] Diagnosis: Pain in unspecified joint[ICD10: M25.50] María Elena APPIAH Nexidia [facility] CPT-4: 76681 07/20/2016 ([id number]) OFFICE/OUTPATIENT VISIT EST Diagnosis: Blister (nonthermal), left great toe, initial encounter[ICD10: S90.422A] Loan APPIAH Nexidia [facility] CPT-4: 31134 ([id number]) OFFICE/OUTPATIENT VISIT EST Diagnosis: Acute recurrent sinusitis, unspecified[ICD10: J01.91] María Elena APPIAH DO [facility] CPT-4: 11576 05/25/2016 ([id number]) OFFICE/OUTPATIENT VISIT EST Diagnosis: Acute sinusitis, unspecified[ICD10: J01.90] María Elenamarcella APPIAH DO [facility] CPT-4: 91919 04/26/2016 ([id number]) OFFICE/OUTPATIENT VISIT EST Diagnosis: Flushing[ICD10: R23.2] Diagnosis: Primary insomnia[ICD10: F51.01] María Elena APPIAH DO [facility] CPT-4: 89541 03/02/2016 ([id number]) OFFICE/OUTPATIENT VISIT EST Diagnosis: Other seasonal allergic rhinitis[ICD10: J30.2] Loan APPIAH DO [facility] CPT-4: 82344 02/09/2016 ([id number]) OFFICE/OUTPATIENT VISIT EST Diagnosis: Primary insomnia[ICD10: F51.01] Diagnosis: Urinary tract infection, site not specified[ICD10: N39.0] María Elena APPIAH DO [facility] CPT-4: 28826 01/24/2016 ([id number]) OFFICE/OUTPATIENT VISIT EST Diagnosis: Other specified disorders of Eustachian tube, bilateral[ICD10: H69.83] Diagnosis: Allergic rhinitis, unspecified[ICD10: J30.9] Loan APPIAH DO [facility] CPT-4: 61612 12/23/2015 ([id number]) OFFICE/OUTPATIENT VISIT EST Diagnosis: Acute recurrent sinusitis, unspecified[ICD10: J01.91] Diagnosis: 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] Diagnosis: Allergic rhinitis, unspecified[ICD10: J30.9] María Elena APPIAH DO [facility] CPT-4: 60158 12/08/2015 ([id number]) OFFICE/OUTPATIENT VISIT EST Diagnosis: Allergic rhinitis, unspecified[ICD10: J30.9] Diagnosis: Pain in unspecified joint[ICD10: M25.50] María Elena APPIAH DO [facility] CPT-4: 94562 10/07/2015 ([id number]) OFFICE/OUTPATIENT VISIT EST Diagnosis: Essential (primary) hypertension[ICD10: I10] María Elena APPIAH DO [facility] CPT-4: 94859 10/06/2015 OFFICE/OUTPATIENT VISIT EST Diagnosis: Localized enlarged lymph nodes[ICD10: R59.0] Diagnosis: Local infection of the skin and subcutaneous tissue, unspecified[ICD10: L08.9] June APPIAH DO [facility] CPT- 4: 34910 09/14/2015 ([id number]) OFFICE/OUTPATIENT VISIT EST Diagnosis: Essential (primary) hypertension[ICD10: I10] Diagnosis: Actinic keratosis[ICD10: L57.0] María Elena APPIAH DO [facility] CPT-4: 19007 09/07/2015 ([id number]) OFFICE/OUTPATIENT VISIT EST Diagnosis: Essential (primary) hypertension[ICD10: I10] Diagnosis: Acute stress reaction[ICD10: F43.0] María Elena APPIAH [facility] CPT-4: 54202 08/18/2015 ([id number]) OFFICE/OUTPATIENT VISIT EST Diagnosis: Essential (primary) hypertension[ICD10: I10] María Elena APPIAH DO [facility] CPT-4: 56141 07/07/2015 ([id number]) OFFICE/OUTPATIENT VISIT EST Diagnosis: Essential (primary) hypertension[ICD10: I10] María Elena APPIAH DO [facility] CPT-4: 08701 06/24/2015 ([id number]) OFFICE/OUTPATIENT VISIT EST Diagnosis: Essential (primary) hypertension[ICD10: I10] María Elena APPIAH DO [facility] CPT-4: 04296 06/21/2015 ([id number]) OFFICE/OUTPATIENT VISIT EST Diagnosis: Essential (primary) hypertension[ICD10: I10] Diagnosis: Mixed hyperlipidemia[ICD10: E78.2] Diagnosis: Acute stress reaction[ICD10: F43.0] Diagnosis: Primary insomnia[ICD10: F51.01] María Elena APPIAH DO [facility] CPT-4: 42374 06/16/2015 ([id number]) OFFICE/OUTPATIENT VISIT EST Diagnosis: INSOMNIA NOS[ICD9: 780.52] Diagnosis: HYPERTENSION[ICD9: 401.9] Diagnosis: Stress reaction[ICD9: 308.9] María Elena APPIAH DO [facility] CPT-4: 72361 06/02/2015 ([id number]) OFFICE/OUTPATIENT VISIT EST Diagnosis: HYPERTENSION[ICD9: 401.9] Diagnosis: Stress reaction[ICD9: 308.9] María Elena APPIAH DO [facility] CPT-4: 52633 05/20/2015 ([id number]) OFFICE/OUTPATIENT VISIT EST Diagnosis: Skin lesion[ICD9: 709.9] 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] María Elena APPIAH DO [facility] CPT-4: 06263 05/10/2015 ([id number]) OFFICE/OUTPATIENT VISIT EST Diagnosis: SINUSITIS, ACUTE[ICD9: 461.9] Diagnosis: ALLERGIC RHINITIS[ICD9: 477.9] Diagnosis: DERMATITIS NOS[ICD9: 692.9] María Elena REHMAN [facility] CPT-4: 81551 03/16/2015 OFFICE/OUTPATIENT VISIT EST Diagnosis: Otitis media[ICD9: 382.9] Diagnosis: SINUSITIS, ACUTE[ICD9: 461.9] June Felixdaniella APPIAH DO [facility] CPT-4: 25581 09/11/2014 ([id number]) OFFICE/OUTPATIENT VISIT EST Diagnosis: HYPERLIPIDEMIA NEC/NOS[ICD9: 272.4] María Elean APPIAH DO [facility] CPT-4: 41352 08/31/2014 ([id number]) OFFICE/OUTPATIENT VISIT EST Diagnosis: - I - HYPERTENSION[ICD9: 401.9] Diagnosis: HYPERLIPIDEMIA NEC/NOS[ICD9: 272.4] María Elena APPIHA DO [facility] CPT-4: 20455 08/27/2014 ([id number]) OFFICE/OUTPATIENT VISIT EST Diagnosis: ABDOMINAL PAIN[ICD9: 789.00] Diagnosis: DYSPEPSIA[ICD9: 536.8] Diagnosis: Thoracic back pain[ICD9: 724.1] María Elena APPIAH DO [facility] CPT-4: 47131 07/21/2014 ([id number]) OFFICE/OUTPATIENT VISIT EST Diagnosis: ALLERGIC RHINITIS[ICD9: 477.9] María Elena APPIAH [facility] CPT-4: 44986 07/15/2014 ([id number]) OFFICE/OUTPATIENT VISIT EST Diagnosis: EDEMA[ICD9: 782.3] Diagnosis: Chronic insomnia[ICD9: 780.52] María Elena APPIAH [facility] CPT-4: 99175 05/18/2014 ([id number]) OFFICE/OUTPATIENT VISIT EST Diagnosis: Thyromegaly[ICD9: 240.9] Diagnosis: - I - HYPERTENSION[ICD9: 401.9] Diagnosis: ROUTINE MEDICAL EXAM[ICD9: V70.0] Diagnosis: EDEMA[ICD9: 782.3] María Elena APPIAH [facility] CPT-4: 17819 05/14/2014 OFFICE/OUTPATIENT VISIT EST Diagnosis: BRONCHITIS, ACUTE[ICD9: 466.0] Diagnosis: SINUSITIS, ACUTE[ICD9: 461.9] María Elena APPIAH [facility] CPT-4: 72743 04/21/2014 OFFICE/OUTPATIENT VISIT EST Diagnosis: SINUSITIS, ACUTE[ICD9: 461.9] June Flores [facility]: 95340 03/04/2014 ([id number]) OFFICE/OUTPATIENT VISIT EST Diagnosis: VACCINE FOR TDAP[ICD10: Z23] María Elena APPIAH [facility] CPT-4: 11574 02/27/2014 ([id number]) OFFICE/OUTPATIENT VISIT EST Diagnosis: Seborrheic keratoses, inflamed[ICD9: 702.11] Diagnosis: ACTINIC KERATOSIS[ICD9: 702.0] Diagnosis: INSOMNIA NOS[ICD9: 780.52] [facility]: 84498 01/13/2014 OFFICE/OUTPATIENT VISIT EST 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] Diagnosis: ALLERGIC RHINITIS[ICD9: 477.9] Diagnosis: Serous otitis media[ICD9: 381.4] María Elena ValdesJj TD [facility] CPT-4: 92965 12/24/2013 ([id number]) OFFICE/OUTPATIENT VISIT EST Diagnosis: SINUSITIS, ACUTE[ICD9: 461.9] Diagnosis: ALLERGIC RHINITIS[ICD9: 477.9] 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] María Elena APPIAH [facility] CPT-4: 16109 11/12/2013 ([id number]) OFFICE/OUTPATIENT VISIT EST Diagnosis: ALLERGIC RHINITIS[ICD9: 477.9] Diagnosis: SINUSITIS, ACUTE[ICD9: 461.9] María Elena APPIAH [facility] CPT-4: 74517 10/21/2013 ([id number]) OFFICE/OUTPATIENT VISIT EST Diagnosis: ASYMPTOMATIC VARICOSE VEINS[ICD9: 454.9] Diagnosis: INSOMNIA NOS[ICD9: 780.52] María Elena PANDYA [facility] CPT-4: 01459 09/22/2013 OFFICE/OUTPATIENT VISIT EST Diagnosis: SINUSITIS, ACUTE[ICD9: 461.9] June APPIAH [facility] CPT-4: 03781 08/27/2013 ([id number]) OFFICE/OUTPATIENT VISIT EST Diagnosis: CEPHALGIA[ICD9: 784.0] Diagnosis: CEPHALGIA, TENSION[ICD9: 307.81] 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] María Elena APPIAH [facility] CPT-4: 29617 08/04/2013 ([id number]) OFFICE/OUTPATIENT VISIT EST Diagnosis: Cervicalgia[ICD9: 723.1] Diagnosis: SPASM OF MUSCLE[ICD9: 728.85] Diagnosis: CEPHALGIA, TENSION[ICD9: 307.81] María Elena APPIAH [facility] CPT-4: 51460 07/23/2013 ([id number]) OFFICE/OUTPATIENT VISIT EST 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] Diagnosis: ALLERGIC RHINITIS[ICD9: 477.9] María Elena APPIAH [facility] CPT-4: 16252 06/23/2013 ([id number]) OFFICE/OUTPATIENT VISIT EST Diagnosis: ALLERGIC RHINITIS[ICD9: 477.9] Diagnosis: ACUTE SEROUS OTITIS MEDIA[ICD9: 381.01] 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] María Elena JUARES LucioJj TD [facility] CPT-4: 13040 05/26/2013 ([id number]) OFFICE/OUTPATIENT VISIT EST Diagnosis: HYPERTENSION[ICD9: 401.9] Diagnosis: EDEMA[ICD9: 782.3] Diagnosis: Serous otitis media[ICD9: 381.4] María Elena JUARES LucioJj TD [facility] CPT-4: 29511 04/16/2013 ([id number]) OFFICE/OUTPATIENT VISIT EST Diagnosis: SINUSITIS, ACUTE[ICD9: 461.9] Diagnosis: ALLERGIC RHINITIS[ICD9: 477.9] Diagnosis: EDEMA[ICD9: 782.3] Diagnosis: Thyromegaly[ICD9: 240.9] Diagnosis: MALAISE AND FATIGUE[ICD9: 780.79] María Elena Lopez LucioJj MARIVEL Nexidia [facility] CPT-4: 26272 03/05/2013 ([id number]) OFFICE/OUTPATIENT VISIT EST Diagnosis: PAIN, LOWER BACK[ICD9: 724.2] Diagnosis: SPASM OF MUSCLE[ICD9: 728.85] María Elena JUARES LucioJj [facility]: 41622 12/23/2012 OFFICE/OUTPATIENT VISIT EST Diagnosis: Low back pain[ICD9: 724.2] Lashawn Hicks [facility]: 35726 12/16/2012 ([id number]) OFFICE/OUTPATIENT VISIT EST Diagnosis: PAIN, LOWER BACK[ICD9: 724.2] Diagnosis: SCIATICA[ICD9: 724.3] Diagnosis: Lumbar herniated disc[ICD9: 722.10] María Elena COLON LucioJj MARIVEL Nexidia [facility] CPT-4: 67220 12/09/2012 ([id number]) OFFICE/OUTPATIENT VISIT EST Diagnosis: PAIN, LOWER BACK[ICD9: 724.2] Diagnosis: SCIATICA[ICD9: 724.3] Diagnosis: LUMBAR DISC DISPLACEMENT[ICD9: 722.10] María Elena MONTEROLui APPIAH DO [facility] CPT-4: 08642 12/04/2012 OFFICE/OUTPATIENT VISIT EST Diagnosis: Pneumonia[ICD9: 486] Mary SerranoRustam MARÍA ELENA APPIAH DO [facility] CPT-4: 55648 11/22/2012 ([id number]) OFFICE/OUTPATIENT VISIT EST Diagnosis: PNEUMONIA, ORGANISM[ICD9: 486] Diagnosis: Exacerbation of RAD (reactive airway disease)[ICD9: 493.92] María Elena Ortamaryjane MARÍA ELENA APPIAH DO [facility] CPT-4: 56193 11/21/2012 OFFICE/OUTPATIENT VISIT EST Diagnosis: HYPERTENSION[ICD9: 401.9] Diagnosis: Cephalgia[ICD9: 784.0] Lashawn Eckert MARÍA ELENA APPIAH DO [facility] CPT-4: 60913 10/29/2012 ([id number]) OFFICE/OUTPATIENT VISIT EST Diagnosis: MALAISE AND FATIGUE[ICD9: 780.79] Diagnosis: ARTHRALGIA-MULTIPLE SITES[ICD9: 719.49] María Elena Seamusmindimaryjane APPIAH DO [facility] CPT-4: 52574 10/14/2012 ([id number]) OFFICE/OUTPATIENT VISIT EST Diagnosis: URINARY FREQUENCY[ICD9: 788.41] María Elena Td APPIAH DO [facility] CPT-4: 46547 09/27/2012 ([id number]) OFFICE/OUTPATIENT VISIT EST Diagnosis: MALAISE AND FATIGUE[ICD9: 780.79] Diagnosis: ARTHRALGIA-MULTIPLE SITES[ICD9: 719.49] María Elena Seamusabbey KYLAH APPIAH DO [facility] CPT-4: 12001 09/25/2012 ([id number]) OFFICE/OUTPATIENT VISIT EST Diagnosis: SINUSITIS, ACUTE[ICD9: 461.9] 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] María Elena Seamusabbey MARÍA ELENA APPIAH DO [facility] CPT-4: 98347 08/29/2012 OFFICE/OUTPATIENT VISIT EST Diagnosis: ACTINIC KERATOSIS[ICD9: 702.0] Diagnosis: Inflamed seborrheic keratosis[ICD9: 702.11] Diagnosis: Skin cancer of face[ICD9: 173.31] Diagnosis: HYPERTENSION[ICD9: 401.9] María Elena SEYMOUR [facility] CPT-4: 05312 08/12/2012 ([id number]) OFFICE/OUTPATIENT VISIT EST Diagnosis: ARTHRALGIA-MULTIPLE SITES[ICD9: 719.49] Diagnosis: GOUT[ICD9: 274.9] Diagnosis: HYPERTENSION[ICD9: 401.9] Diagnosis: Tachycardia[ICD9: 785.0] María Elena HU KARLOS [facility] CPT-4: 34717 05/06/2012 ([id number]) OFFICE/OUTPATIENT VISIT EST Diagnosis: INSOMNIA NOS[ICD9: 780.52] María Elena PANDYA [facility] CPT-4: 73806 04/03/2012 ([id number]) OFFICE/OUTPATIENT VISIT EST Diagnosis: INSOMNIA NOS[ICD9: 780.52] Diagnosis: HYPERTENSION[ICD9: 401.9] Diagnosis: MIGRAINE NOS/NOT INTRCBL[ICD9: 346.90] María Elena MARIN SJj APPIAH [facility] CPT-4: 25856 03/19/2012 ([id number]) OFFICE/OUTPATIENT VISIT EST Diagnosis: CELLULITIS[ICD9: 682.9] Diagnosis: Ankle pain[ICD9: 719.47] Diagnosis: HYPERTENSION[ICD9: 401.9] María Elena MOJICAR [facility] CPT-4: 96638 02/20/2012 ([id number]) OFFICE/OUTPATIENT VISIT EST Diagnosis: MIGRAINE NOS/NOT INTRCBL[ICD9: 346.90] Diagnosis: Vomiting[ICD9: 787.03] María Elena TANNER R [facility] CPT-4: 03317 01/30/2012 ([id number]) OFFICE/OUTPATIENT VISIT EST Diagnosis: EDEMA[ICD9: 782.3] Diagnosis: HYPERTENSION[ICD9: 401.9] Diagnosis: ALLERGIC RHINITIS[ICD9: 477.9] Diagnosis: ARTHRALGIA-MULTIPLE SITES[ICD9: 719.49] María Elena WAYNDER [facility] CPT-4: 67465 01/24/2012 ([id number]) OFFICE/OUTPATIENT VISIT EST Diagnosis: SPASM OF MUSCLE[ICD9: 728.85] Diagnosis: Thoracic back pain[ICD9: 724.1] Diagnosis: Cervical pain[ICD9: 723.1] María Elena PANDYA [facility] CPT-4: 65369 01/10/2012 OFFICE/OUTPATIENT VISIT EST Diagnosis: PAIN, LOWER BACK[ICD9: 724.2] Diagnosis: LUMBAR DISC DISPLACEMENT[ICD9: 722.10] María Elena Seamusabbey MARLIN APPIAH [facility] CPT-4: 26640 12/11/2011 OFFICE/OUTPATIENT VISIT EST Diagnosis: MIGRAINE NOS/NOT INTRCBL[ICD9: 346.90] Diagnosis: SINUSITIS, ACUTE[ICD9: 461.9] María Elena APPIAH [facility] CPT-4: 46396 11/09/2011 OFFICE/OUTPATIENT VISIT EST Diagnosis: MIGRAINE NOS/NOT INTRCBL[ICD9: 346.90] Diagnosis: LYMPHADENOPATHY[ICD9: 785.6] María Elena APPIAH [facility] CPT-4: 08615 09/13/2011 OFFICE/OUTPATIENT VISIT EST Diagnosis: MALAISE AND FATIGUE[ICD9: 780.79] Diagnosis: ARTHRALGIA-MULTIPLE SITES[ICD9: 719.49] María Elena Seamusabbey MONTERO APRANAGAEL LucioJj TD [facility] CPT-4: 81248 08/31/2011 OFFICE/OUTPATIENT VISIT EST Diagnosis: SINUSITIS, ACUTE[ICD9: 461.9] María Elena Waymindimaryjane ValdesJj TD [facility] CPT-4: 72550 07/20/2011 OFFICE/OUTPATIENT VISIT EST Diagnosis: HYPERTENSION[ICD9: 401.9] Diagnosis: PAIN, LOWER BACK[ICD9: 724.2] Diagnosis: SPASM OF MUSCLE[ICD9: 728.85] María Elena Waymindimaryjane APPIAH [facility] CPT-4: 86843 07/06/2011 OFFICE/OUTPATIENT VISIT EST Diagnosis: MIGRAINE NOS/NOT INTRCBL[ICD9: 346.90] Diagnosis: HYPERTENSION[ICD9: 401.9] María Elena Hicks [facility] CPT-4: 21349 05/22/2011 OFFICE/OUTPATIENT VISIT EST Diagnosis: SINUSITIS, ACUTE[ICD9: 461.9] Diagnosis: MIGRAINE NOS/NOT INTRCBL[ICD9: 346.90] Diagnosis: Dehydration[ICD9: 276.51] Diagnosis: Vomiting[ICD9: 787.03] María Elena Hicks [facility] CPT-4: 93790 05/09/2011 ([id number]) OFFICE/OUTPATIENT VISIT EST María Elena ISAAC [facility] CPT-4: 54648 02/14/2011 ([id number]) OFFICE/OUTPATIENT VISIT EST María Elena ISAAC [facility] CPT-4: 98654 02/03/2011 ([id number]) OFFICE/OUTPATIENT VISIT EST María Elena ISAAC [facility] CPT-4: 38908 01/31/2011 ([id number]) OFFICE/OUTPATIENT VISIT EST María Elena ISAAC [facility] CPT-4: 28224 01/25/2011 ([id number]) OFFICE/OUTPATIENT VISIT EST María Elena ISAAC [facility] CPT-4: 02018 01/18/2011 ([id number]) OFFICE/OUTPATIENT VISIT EST María Elena ISAAC [facility] CPT-4: 60688 11/29/2010 ([id number]) OFFICE/OUTPATIENT VISIT, EST María Elena MONTERO [facility] CPT-4: 24510 10/10/2010 ([id number]) OFFICE/OUTPATIENT VISIT, EST María Elena MONTERO [facility] CPT-4: 06905 06/07/2010 ([id number]) OFFICE/OUTPATIENT VISIT, EST María Elena MONTERO [facility] CPT-4: 24947 04/27/2010 ([id number]) OFFICE/OUTPATIENT VISIT, EST María Elena Waymindimaryjane MONTERO [facility] CPT-4: 54319 04/05/2010 ([id number]) OFFICE/OUTPATIENT VISIT, EST María Elena [facility] CPT-4: 39937 03/09/2010 ([id number]) OFFICE/OUTPATIENT VISIT, EST María Elena [facility] CPT-4: 90396 03/03/2010 ([id number]) OFFICE/OUTPATIENT VISIT, EST María Elena [facility] CPT-4: 04732 01/17/2010 ([id number]) PREV VISIT, EST, AGE 40-64 María Elena [facility] CPT-4: 15389 12/27/2009 Plan of Care Planned Activity Notes [...] E11.65 01/13/2020 Patient Education: lisinopril- [employer] C[employer]on [id number] Completed 01/13/2020 Patient Education: glimepiride- [employer] C[employer]on [id number] Completed 01/13/2020 Appointment: María Elena Appiah [facility]el[id number] [facility] 11/26/2019 Visit Diagnosis Plan: Type 2 diabetes mellitus with hy perglycemia Discussion: Januvia 100mg daily Glimepride 2mg po BID Accuchecks BID Call in 2 weeks with BS readings Get formulary book ICD-9 : 250.02 ICD-10 : E11.65 11/20/2019 Appointment: María Elena Appiah [facility]el[facility] [phone] [id number] [place] FOLLOW UP 11/20/2019 Patient Education: glimepiride- [employer] Coupon [id number] Completed 11/20/2019 Patient Education: Januvia- [employer] Coupon [id number] Completed 11/20/2019 Visit Diagnosis Plan: Ingrowing nail [...] ICD-10 : E11.65 10/07/2019 Appointment: Kathleen Zuniga [address] [place], [place] [id number] OFFICE SURGERY 10/07/2019 Visit Diagnosis Plan: Hypertriglyceridemia [...] E11.65 09/30/2019 Appointment: María Elena Appiah WPtel: [address] [place], [place] [phone] [place] CHECK UP 09/30/2019 Patient Education: Premarin- [employer] Coupon [id number] https://www.[employer]/resources/getResource/61/73942x08-q444-1ffo-l4 Completed 09/30/2019 Appointment: María Elena Appiah WPtel: [address] [place], [place] [phone] [place] LAB 09/29/2019 Appointment: María Elena Appiah WPtel: [address] [place], [place] [phone] [place] Won't have the new insurance till [...] W06.XXXS 05/28/2019 Appointment: María Elena Appiah WPtel: [address] [place], [place] [phone] [place] FOLLOW UP 05/28/2019 Appointment: María Elena Appiah WPtel: [address] [place], [place] [phone] US BP CHECK 05/19/2019 Visit Diagnosis Plan: [...] Z79.890 01/22/2019 Appointment: María Elena Appiah WPtel: [address] [place], [place] [phone] [place] FOLLOW UP 01/22/2019 Patient Education: estradiol- [employer] Coupon [id number] https://www.[employer]/resources/getResource/61/474w727w-2bz8-8q47-1j Completed 01/22/2019 Appointment: María Elena Appiah WPtel: [address] [place] [address] [place] CANCELED 01/20/2019 Appointment: María Elena Appiah WPtel: [address] [place] [address] US LM NO SHOW 01/06/2019 Appointment: María Elena Appiah WPtel: [address] [place] [address] US CANCELED 10/17/2018 Appointment: María Elena Appiah WPtel: [address] [place] [address] US BP CHECK 10/09/2018 Visit Diagnosis Plan: [...] 09/30/2018 Appointment: María Elena Appiah WPtel: [address] [place] [address] US FOLLOW UP 09/30/2018 Visit Diagnosis Plan: [...] F51.01 08/27/2018 Appointment: María Elena Appiah WPtel: [address] [place] [address] ACUTE ILLNESS 08/27/2018 Appointment: María Elena Appiah WPtel: [address] [place] [address] [place] Patient stated she went out to [...] Tyle... 08/09/2018 Appointment: María Elena Appiah WPtel: [address] [place], [place] [phone] ACUTE ILLNESS 08/09/2018 Appointment: María Elena Appiah WPtel: [address] [place], [place] [phone] NO SHOW 08/08/2018 Visit Diagnosis Plan: Anxiety [...] 07/22/2018 Appointment: María Elena Appiah WPtel: [address] [place] [address] ACUTE ILLNESS 07/22/2018 Appointment: María Elena Appiah WPtel: [address] [place] [address] [place] INJECTION 06/19/2018 Patient Education: Patient Medication [...] ICD-10 : L03.031 06/17/2018 Appointment: Kathleen Zuniga [address] [place] [address] ACUTE ILLNESS 06/17/2018 Patient Education: Patient Medication [...] ICD-10 : B02.9 05/16/2018 Appointment: Kathleen Zuniga [address] [place], [place] [phone] ACUTE ILLNESS 05/16/2018 Patient Education: Patient Medication [...] ICD-10 : L03.115 03/20/2018 Appointment: Kathleen Zuniga [address] [place] [address] FOLLOW UP 03/20/2018 Patient Education: Patient Medication [...] ICD-10 : L03.115 03/18/2018 Appointment: Kathleen Zuniga [address] [place], [place] [address] FOLLOW UP 03/18/2018 Patient Education: Patient Medication [...] : L03.115 03/15/2018 App[facility]ment[facility] [facility] 03/15/2018 Patient Education: Patient Medication [...] : J01.90 02/11/2018 Appointment: Kathleen Zuniga [address] [facility] ACUTE ILLNESS 02/11/2018 Patient Education: Patient Medication Summary Completed 02/11/2018 Appointment: María Elena Appiah WPtel: [phone] [facility] INJECTION 02/01/2018 Patient Education: Patient Medication [...] : M51.16 01/30/2018 Appointment: Kathleen Zuniga [address] [facility] ACUTE ILLNESS 01/30/2018 Patient Education: Patient [...] 12/18/2017 Appointment: María Elena Appiah WPtel: [facility]5 [facility] Annual Well Visit 12/18/2017 Patient Education: Patient Medication Summary Completed 12/18/2017 Care Plan: Referral Order SNOMED-CT : [id number] Pending 12/18/2017 Appointment: María Elena Appiah WPtel: [phone] [facility] [place] INJECTION 12/10/2017 Patient Education: Patient [...] ICD-10 : L03.031 12/07/2017 Appointment: Kathleen Zuniga [address] [place], [place] [id number] ACUTE ILLNESS 12/07/2017 Patient Education: Patient Medication [...] ICD-10 : J01.00 10/08/2017 Appointment: Kathleen Zuniga [address] [place], [place] [id number] ACUTE ILLNESS 10/08/2017 Patient Education: Patient Medication Summary Completed 10/08/2017 Appointment: María Elena Appiah WPtel: [phone] [facility] INJECTION 09/21/2017 Patient Education: Patient Medication Summary [...] ICD-10 : R06.83 09/20/2017 Appointment: Kathleen Zuniga [address] [place], [place] [address] ACUTE ILLNESS 09/20/2017 Patient Education: Patient Medication [...] ICD-10 : L60.0 08/29/2017 Appointment: Kathleen Zuniga [address] [place], [place] [id number] OFFICE SURGERY 08/29/2017 Patient Education: Patient Medication Summary Completed 08/29/2017 Visit Diagnosis Plan: Actinic keratosis Discussion: Cr yotherapy as above ICD-9 : 702.0 ICD-10 : L57.0 08/01/2017 Appointment: María Elena Appiah WPtel: [phone] [facility] OFFICE SURGERY 08/01/2017 Patient Education: Patient Medication Summary Completed 08/01/2017 Appointment: María Elena Appiah WPtel: [phone] [facility] [place] PATIENT THOUGHT APPOINTMENT WAS TOMORROW 07/26/17 CALLED 15 MINUTES BEFORE APPT TO SAY SHE DIDN'T HAVE ANYONE TO COVER HER BUSINESS AND WOULD NOT MAKE IT NO SHOW 07/25/2017 Visit Diagnosis Plan: Cellulitis of left toe Discussio n: Clindamycin and notify if worsening or persistis ICD-9 : 681.10 ICD-10 : L03.032 07/19/2017 Appointment: María [facility]el[phone] [place] MEDICATION REVIEW 07/19/2017 Patient Education: Patient Medication Summary Completed 07/19/2017 Appointment: María Elena Appiah [facility]Ptel[facility] [phone] [id number] [facility] CANCELED 07/04/2017 Visit Diagnosis Plan: Generalized hyperhidrosis Discus ian: CBC, CMP, TSH, free T4 ordered to assess. will review labs. ICD-9 : 780.8 ICD-10 : R61 06/27/2017 Visit Diagnosis Plan: Chronic sinusitis, unspecified D iscussion: Referral sent to dr. albarado in [place] per patient request. patient has been treated multiple times for sinus infections with no recovery. patient was seen by dr sanchez in the past with no interventions. patient has deviated septum which may be affecting her sinuses. 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, including hip Discussion: Shave removal of above lesio n--sent to pathology ICD-9 : 216.7 ICD-10 : D23.72 01/24/2017 Appointment: María Elena Appiah WPtel: [address] [place], [place] [phone] 01/23 confirmed ~sl OFFICE SURGERY 01/24/2017 Patient Education: Patient Medication Summary Completed 01/24/2017 Appointment: Gonzalo Loan [address] [place] [address] 01/09 rescheduled~sl RESCHEDULED 01/15/2017 Visit Diagnosis Plan: [...] L81.4 12/13/2016 Appointment: María Elena Appiah WPtel: [address] [place], [place] [phone] [place] 12/12 confirmed ~sl MEDICATION REVIEW 12/13/2016 Patient Education: Patient Medication Summary Completed 12/13/2016 Appointment: María Elena Appiah WPtel: [address] [place], [place] [phone] [place] rescheduled for 12/13/16 at 11am RESCHEDULED 0 12/06/2016 Appointment: María Elena Appiah [facility]Ptel: [phone] [id number] [place] CANCELED 11/23/2016 Patient Education: Patient Medication [...] 11/01/2016 Appointment: María Elena Appiah WPtel: [id number] [place] 10/31 lm `sl 11/01 lm`sl MEDICATION REVIEW 017 Patient Education: Patient Medication Summary Completed 11/01/2016 Referral: Canelo Overton WPtel: [phone] [id number] [place] Referral Initiated 10/30/2016 Visit Diagnosis Plan: [...] Z01.419 10/17/2016 Appointment: María Elena Appiah WPtel: [address] [place], [place] [id number] [place] 10/16 confirmed ~sl PAP 10/17/2016 Patient Education: Patient Medication Summary Completed 10/17/2016 Care Plan: MAMMOGRAM SCREENING LOINC : 2 6347-5 Pending 10/17/2016 Visit Diagnosis Plan: Other seasonal allergic rhinitis Discussion: Decadron/Garamycin Nasal [place] Mix Too soon for steroid Retry zyrtec 10mg daily ICD-9 : 477.9 ICD-10 : J30.2 10/10/2016 Appointment: María Elena Appiah WPtel: [address] [place], [place] [phone] FOLLOW UP 10/10/2016 Patient Education: Patient Medication Summary Completed 10/10/2016 Appointment: María Elena Appiah WPtel: [address] [place], [place] [phone] 10/02 reschedule `sl RESCHEDULED 10/02/2016 Visit Plan: See surgery for removal of n ew left arm lesion and right foot lesion Lyrica to use next month for left arm paresthesias Continue current meds Discussed sunscreen/sunblock combo 09/19/2016 Appointment: María Elena Appiah WPtel: [address] [place] [address] 09/18 confirmed ~sl FOLLOW UP 09/19/2016 Patient Education: Patient Medication Summary Completed 09/19/2016 Patient Education: Patient Medication Summary Completed 09/18/2016 Care Plan: MAMMOGRAM BOTH BREASTS LOINC : 40817-8 Pending 09/18/2016 Visit Plan: Discussed that needs [...] sinuses 08/24/2016 Appointment: María Elena Appiah WPtel: [address] [place], [place] [phone] ACUTE ILLNESS 08/24/2016 Patient Education: Patient Medication Summary Completed 08/24/2016 Patient Education: Patient Medication Summary Completed 08/23/2016 Care Plan: MAMMOGRAM SCREENING LOINC : 2 6347-5 Pending 08/23/2016 Visit Plan: Finish doxycycline Add Breo 100/25 1 p BID for 2 weeks If not improving within next 2 days will get CXR 08/16/2016 Appointment: María Elena Appiah WPtel: [address] [place] [address] ACUTE ILLNESS 08/16/2016 Patient Education: Patient Medication Summary Completed 08/16/2016 Visit Plan: Supportive care. Rest, Fluid s, Tylenol/Motrin prn fever or bodyaches. Notify if worsening symptoms. Doxycyline and Prednisone 08/10/2016 Appointment: María Elena Appiah WPtel: [address] [place] [address] 08/09 lm`sl....confirmed-sp FOLLOW UP 09/2015 Patient Education: Patient Medication Summary Completed 08/10/2016 Visit Plan: Saline nasal flushes prn. Ty lenol/Motrin prn headache. Notify if persists/symptoms worsening. Dexamethasone 8mg IM today May use coricedan and mucinex 08/02/2016 Appointment: María Elena Appiah WPtel: [address] [place] [address] ACUTE ILLNESS 08/02/2016 Patient Education: Patient Medication Summary Completed 08/02/2016 Visit Plan: Cryotherapy as above and lef t forearm lesion removal as above with 5-0 punch biopsy and sent to path Return in 10 days for suture removal 08/01/2016 Appointment: María Elena Appiah WPtel: [address] [place] [address] 07/31 confirmed`~sl OFFICE SURGERY 08/01/2016 Patient Education: Patient Medication Summary Completed 08/01/2016 Visit Plan: Stop clindamycin Check CBC, CMP, ESR now/STAT 07/27/2016 Appointment: María Elena Appiah WPtel: [address] [place] [address] ACUTE ILLNESS 07/27/2016 Patient Education: Patient Medication Summary Completed 07/27/2016 Visit Plan: Update lab and check ABIs to start with Will likely need cardiology evaluation to rule out PVD Clindamycin for 10 days Daily yogurt or probiotic Will return for removal of left arm lesions 07/20/2016 Appointment: María Elena Appiah WPtel: [address] [place] [phone] ACUTE ILLNESS 07/20/2016 Patient Education: Patient Medication Summary Completed 07/20/2016 Patient Education: Patient Medication Summary Completed 07/20/2016 Care Plan: MAMMOGRAM BOTH BREASTS LOINC : 84879-0 Pending 07/20/2016 Care Plan: US EXAM CHEST LOINC : 20429-1 Pending 07/20/2016 Visit Plan: Wound culture collected from left great toe Appearance is somewhat staph like Rx as above Wound cleanser and skin care reviewed May need to add oral antibiotic if sores do not heal or continue to reoccur 07/06/2016 Appointment: Loan Sánchez [address] [place] [address] ACUTE ILLNESS 07/06/2016 Patient Education: Patient Medication Summary Completed 07/06/2016 Appointment: María Elena Appiah WPtel: [address] [place], [place] [id number] [place] INJECTION 05/25/2016 Patient Education: Patient Medication Summary Completed 05/25/2016 Visit Plan: Saline nasal flushes prn. Ty lenol/Motrin prn headache. Notify if persists/symptoms worsening. Dexamethasone and Rocephin given 04/26/2016 Appointment: María Elena Appiah WPtel: [address] [place], [place] [phone] ACUTE ILLNESS 04/26/2016 Patient Education: Patient Medication Summary Completed 04/26/2016 Visit Plan: Check CBC, CMP, TSH, FreeT4, HbA1C, estradiol, lipids in AM 03/02/2016 Appointment: María Elena Appiah WPtel: [address] [place], [place] [phone] 03/01 lm~sl ACUTE ILLNESS 03/02/2016 Patient Education: Patient Medication Summary Completed 03/02/2016 Visit Plan: Exam is nearly normal Needs to be taking daily antihistamine Would prefer to use oral steroids instead of shot but patient insist that oral steroids cause horrible headaches for her Will given kenalog IM instead 02/09/2016 Appointment: Loan Sánchez [address] [place] [address] ACUTE ILLNESS 02/09/2016 Patient Education: Patient Medication Summary Completed 02/09/2016 Visit Plan: Culture urine Macrobid DC xa nax Trial of Ativan 1mg q HS 01/24/2016 Appointment: María Elena Appiah WPtel: [address] [place] [address] ACUTE ILLNESS 01/24/2016 Patient Education: Patient Medication Summary Completed 01/24/2016 Visit Plan: No steroid or rocephin injec tion warranted Can have oral prednisone Continue current home regimen Needs to follow up with Dr Sanchez if problems persist 12/23/2015 Appointment: Loan Sánchez [address] [place] [address] ACUTE ILLNESS 12/23/2015 Patient Education: Patient Medication Summary Completed 12/23/2015 Visit Plan: Saline nasal flushes prn. Ty lenol/Motrin prn headache. Notify if persists/symptoms worsening. Kenalog 40mg IM today 12/08/2015 Appointment: María Elena Appiah WPtel: [address] [place] [address] 12/06 confirmed~ ACUTE ILLNESS 12/08/2015 Patient Education: Patient Medication Summary Completed 12/08/2015 Appointment: María Elena Appiah WPtel: [address] [place] [address] ACUTE ILLNESS 11/18/2015 Patient Education: Patient Medication Summary Completed 10/11/2015 Appointment: María Elena Appiah WPtel: [address] [place] [address] US INJECTION 10/07/2015 Patient Education: Patient Medication Summary Completed 10/07/2015 Visit Plan: Check renal arterial doppler s and ECHO Change amlodopine to lotrel 5/20mg q HS Will need stress test as well Check CMP, uric acid, ESR 10/06/2015 Appointment: María Elena Appiah WPtel: [address] [place] [address] ACUTE ILLNESS 10/06/2015 Patient Education: Patient Medication Summary Completed 10/06/2015 Patient Education: [facility] [place] - Saving [employer] - Amlodipine Besylate - 18-64 - Dynamic Portal ID Completed 10/06/2015 Appointment: María Elena Appiah WPtel: [address] [place], [place] [phone] [place] FOLLOW UP 09/22/2015 Visit Plan: Cephalexin 500 mg PO bid Mery ly topical Mupirocin to lesions on left lateral neck and face Follow-up in one week. Sooner if symptoms worsen 09/14/2015 Appointment: June Flores WPtel: [address] [place] [address] ACUTE ILLNESS 09/14/2015 Patient Education: Patient Medication Summary Completed 09/14/2015 Visit Plan: Change bystolic to bedtime d osing and amlodopine to morning dosing Cryotherapy as above to AKs 09/07/2015 Appointment: María Elena Appiah WPtel: [address] [place], [place] [phone] 09/06 appointment made and confirmed ~ FOLLOW UP 09/07/2015 Patient Education: Patient Medication Summary Completed 09/07/2015 Visit Plan: Increase bystolic back to 20 mg daily but will split and take 10mg in AM and 10mg in PM Stress Reducers 08/18/2015 Appointment: María Elena Appiah WPtel: [address] [place], [place] [phone] 08/17/15 appt confirmed cn ACUTE ILLNESS 08/18 Patient Education: Patient Medication Summary Completed 08/18/2015 Appointment: María Elena Appiah WPtel: [address] [place], [place] [phone] BP CHECK 07/07/2015 Patient Education: Patient Medication Summary Completed 07/07/2015 Appointment: María Elena Appiah WPtel: [address] [place], [place] [phone] BP CHECK 06/24/2015 Patient Education: Patient Medication Summary Completed 06/24/2015 Appointment: María Elena Appiah WPtel: [address] [place] [address] BP CHECK 06/21/2015 Patient Education: Patient Medication Summary Completed 06/21/2015 Visit Plan: Lab discussed Continue curre nt meds and lifestyle modification Recheck lab in 6mos 06/16/2015 Appointment: María Elena Appiah WPtel: [address] [place] [address] 06/15 confirmed FOLLOW UP 06/16/2015 Patient Education: Patient Medication Summary Completed 06/16/2015 Patient Education: Patient Medication Summary Completed 06/15/2015 Visit Plan: Increase cymbalta to 60mg q HS Keep clonidine at current dose Recheck 2weeks Change xanax to klonopin 06/02/2015 Appointment: María Elena Appiah WPtel: [address] [place] [address] 06/02 lm FOLLOW UP 06/02/2015 Patient Education: Patient Medication Summary Completed 06/02/2015 Appointment: María Elena Appiah WPtel: [address] [place] [address] ACUTE ILLNESS 05/24/2015 Visit Plan: Increase clonidine to 0.2mg q HS Add cymbalta 30mg q HS Recheck 2weeks Stress Reducers Check fasting lab Discussed sleep study 05/20/2015 Appointment: María Elena Appiah WPtel: [address] [place] [address] ACUTE ILLNESS 05/20/2015 Patient Education: Patient Medication Summary Completed 05/20/2015 Patient Education: [facility] [place] - [employer]aving [employer] - Cymbalta - 18-64 - Dynamic Portal ID Completed 05/20/2015 Appointment: María Elena Appiah WPtel: [address] [place] [address] BP CHECK 05/19/2015 Patient Education: Patient Medication Summary Completed 05/19/2015 Visit Plan: Topical Bactroban alternatin g with topical betamethasone Recheck 2weeks 05/10/2015 Appointment: María Elena Appiahl: [address] [place], [place] [phone] 05/07 vm cn...05/07 appt confirmed OFFICE SURGER Y 05/10/2015 Patient Education: Patient Medication Summary Completed 05/10/2015 Ref[facility]: [id number] Referral Initiated 05/04/2015 Visit Plan: Saline nasal flushes prn. Ty lenol/Motrin prn headache. Notify if persists/symptoms worsening. Depomedrol 40mg IM today 03/16/2015 Appointment: María Elena Appiah WPtel: [address] [place] [address] ACUTE ILLNESS 03/16/2015 Patient Education: Patient Medication Summary Completed 03/16/2015 Appointment: María Elena Appiah WPtel: [address] [place] [address] ER Follow UP 03/09/2015 Visit Plan: Cryotherapy to lesions as ab ove 10/27/2014 Appointment: María Elena Appiah WPtel: [address] [place] [address] OFFICE SURGERY 10/27/2014 Patient Education: Patient Medication Summary Completed 10/27/2014 Appointment: June Flores WPtel: [address] [place] [address] ACUTE ILLNESS 09/11/2014 Patient Education: Patient Medication Summary Completed 09/11/2014 Visit Plan: Lab discussed Lipitor 10mg d aily Coenzyme Q-10 400mg daily Vitamin D3 5000u daily Recheck lipids with LFTs in 3mos then fwup 08/31/2014 Appointment: María Elena Appiah WPtel: [address] [place] [address] 08/28 voicemail FOLLOW UP 08/31/2014 Patient Education: Patient Medication Summary Completed 08/31/2014 Appointment: María Elena Appiah WPtel: [address] [place], [place] [phone] LAB 08/27/2014 Appointment: María Elena Appiah WPtel: [address] [place] [address] LAB 08/27/2014 Patient Education: Patient Medication Summary Completed 08/27/2014 Appointment: María Elena Appiah WPtel: [address] [place] [address] ACUTE ILLNESS 07/23/2014 Appointment: María Elena Appiah WPtel: [address] [place] [address] ACUTE ILLNESS 07/21/2014 Patient Education: Patient Medication Summary Completed 07/21/2014 Visit Plan: Kenalog 40mg IM today Contin ue narendra and singulair Add Flonase 07/15/2014 Appointment: María Elena Appiah WPtel: [address] [place] [address] ACUTE ILLNESS 07/15/2014 Appointment: María Elena Appiah WPtel: [address] [place] [address] ACUTE ILLNESS 07/15/2014 Patient Education: Patient Medication Summary Completed 07/15/2014 Visit Plan: Will do metolazone 2.5mg prn with 6 potassium and see if causes as severe cramping Trial of of seroquel XR 50mg q PM with evening meal and let us know how works 05/18/2014 Appointment: María Elena Appiah WPtel: [address] [place] [address] 05/15 left message FOLLOW UP 05/18/2014 Patient Education: Patient Medication Summary Completed 05/18/2014 Appointment: María Elena Appiah WPtel: [address] [place], [place] [phone] 05/14/2014 Patient Education: Patient Medication Summary Completed 05/14/2014 Appointment: María Elena Appiah WPtel: [address] [place], [place] [phone] [place] INJECTION 04/22/2014 Visit Plan: Tisha and Miranda today a nd finish abx given from urgent care 04/21/2014 Appointment: María Elena Appiah WPtel: [address] [place], [place] [phone] [place] INJECTION 04/21/2014 Patient Education: Patient Medication Summary Completed 04/21/2014 Appointment: June Flores WPtel: [address] [place], [place] [phone] ACUTE ILLNESS 03/04/2014 Patient Education: Patient Medication Summary Completed 03/04/2014 Appointment: María Elena Appiah WPtel: [address] [place], [place] [phone] [place] INJECTION 02/27/2014 Patient Education: Patient Medication Summary Completed 02/27/2014 Visit Plan: Cryotherapy as above to all lesions Patient wants to try no meds for insomnia for a while and see how goes 01/13/2014 Appointment: María Elena Appiah WPtel: [address] [place] [address] OFFICE SURGERY 01/13/2014 Patient Education: Patient Medication Summary Completed 01/13/2014 Visit Plan: Stop Melatonin Stop Soma Tri al of trazadone 75mg q HS See ENT for possible tubes as has had chronic ETD and serous otitis media with numerous steroids 12/24/2013 Appointment: María Elena Appiah WPtel: [address] [place], [place] [phone] ACUTE ILLNESS 12/24/2013 Patient Education: Patient Medication Summary Completed 12/24/2013 Visit Plan: Saline nasal flushes prn. Ty lenol/Motrin prn headache. Notify if persists/symptoms worsening. 11/12/2013 Appointment: María Elena Appiah WPtel: [address] [place], [place] [phone] ACUTE ILLNESS 11/12/2013 Patient Education: Patient Medication Summary Completed 11/12/2013 Appointment: María Elena Appiah WPtel: [address] [place] [address] ACUTE ILLNESS 10/21/2013 Patient Education: Patient Medication Summary Completed 10/21/2013 Visit Plan: Sleep hygiene and sleep rout ine Melatonin 10mg q HS Support stockings and observe 09/22/2013 Appointment: María Elena Appiah WPtel: [address] [place] [address] ACUTE ILLNESS 09/22/2013 Patient Education: Patient Medication Summary Completed 09/22/2013 Appointment: June Flores WPtel: [address] [place] [address] ACUTE ILLNESS 08/27/2013 Patient Education: Patient Medication Summary Completed 08/27/2013 Visit Plan: Proceed with CT scan of head /neck Proceed with occipital nerve injections Butrans 20mcg patch weekly until can get into see Dr. Mcdonough for injections 08/04/2013 Appointment: María Elena Appiah WPtel: [address] [place] [address] FOLLOW UP 08/04/2013 Patient Education: Patient Medication Summary Completed 08/04/2013 Visit Plan: OMT done Daily neck stretche s, moist heat Increase Celebrex to 200mg BID Add flexeril 07/23/2013 Appointment: María Elena Appiah WPtel: [address] [place] [address] 07/22 voicemail FOLLOW UP 07/23/2013 Patient Education: Patient Medication Summary Completed 07/23/2013 Appointment: María Elena Appiah WPtel: [address] [place] [address] ACUTE ILLNESS 06/23/2013 Patient Education: Patient Medication Summary Completed 06/23/2013 Appointment: María Elena Appiah WPtel: [address] [place] [address] ACUTE ILLNESS 05/26/2013 Patient Education: Patient Medication Summary Completed 05/26/2013 Visit Plan: Decrease clonidine to 0.1mg TID If BP remains stable consider decreasing amlodopine Prednisone for 5 days BP check in 1mo 04/16/2013 Appointment: María Elena Appiah WPtel: [address] [place] [address] 04/14 pt called and confirmed appt FOLLOW UP 04/16/2013 Patient Education: Patient Medication Summary Completed 04/16/2013 Appointment: María Elena Appiah WPtel: [address] [place] [address] ACUTE ILLNESS 03/05/2013 Patient Education: Patient Medication Summary Completed 03/05/2013 Visit Plan: Pt has MARIA ELENA on with Dr. Sharonda Arita Butrans patch Refill Hydrocodone early tomorrow 12/23/2012 Appointment: María Elena Appiah WPtel: [address] [place] [address] FOLLOW UP 12/23/2012 Patient Education: Patient Medication Summary Completed 12/23/2012 Appointment: Lashawn Eckert WPtel: [address] [place] [address] ACUTE ILLNESS 12/16/2012 Patient Education: Patient Medication Summary Completed 12/16/2012 Visit Plan: Proceed with updated MRI of LS spine Continue gabapentin and add soma and diclofenac Will likely need to go for another epidural 12/09/2012 Appointment: María Elena Appiah WPtel: [address] [place] [address] ACUTE ILLNESS 12/09/2012 Patient Education: Patient Medication Summary Completed 12/09/2012 Visit Plan: Injection as above Finish me drol dose pack Chiropracter this afternoon 12/04/2012 Appointment: María Elena Appiah WPtel: [address] [place] [address] ACUTE ILLNESS 12/04/2012 Patient Education: Patient Medication Summary Completed 12/04/2012 Appointment: Mary Tillman WPtel: [address] [place] [address] FOLLOW UP 11/22/2012 Patient Education: Patient Medication Summary Completed 11/22/2012 Appointment: María Elena Appiah WPtel: [address] [place] [address] ACUTE ILLNESS 11/21/2012 Patient Education: Patient Medication Summary Completed 11/21/2012 Appointment: María Elena Appiah WPtel: [address] [place] [address] BP CHECK 11/07/2012 Patient Education: Patient Medication Summary Completed 11/07/2012 Visit Plan: reports extra clonidine and extra amlodipine and extra alprazalam. extra Ketolorac and promethazine last night. Bystolic 10 mg QAM and will continue all other blood pressure meds. Pt. encouraged to rest and hydrate. Discussed stroke and ID symptoms. Pt. instructed to seek ER eval if symptoms worsen or headache persists. Pt. agrees to ER eval/EMS transport if symptoms worsen. BP re-check. 10/29/2012 Appointment: Lashawn Eckert WPtel: [address] [place] [address] ACUTE ILLNESS 10/29/2012 Patient Education: Patient Medication Summary Completed 10/29/2012 Appointment: María Elena Appiah WPtel: [address] [place] [address] ACUTE ILLNESS 10/14/2012 Patient Education: Patient Medication Summary Completed 10/14/2012 Appointment: María Elena Appiah WPtel: [address] [place] [address] UA 09/27/2012 Patient Education: Patient Medication Summary Completed 09/27/2012 Appointment: María Elena Appiah WPtel: [address] [place] [address] ACUTE ILLNESS 09/25/2012 Patient Education: Patient Medication Summary Completed 09/25/2012 Appointment: María Elena Appiah WPtel: [address] [place] [address] BP CHECK 09/24/2012 Appointment: María Elena Appiah WPtel: [address] [place], [place] [phone] ACUTE ILLNESS 08/29/2012 Patient Education: Patient Medication Summary Completed 08/29/2012 Visit Plan: Cryotherapy as above See Karlos m for right ear lesion--probable MOHs procedure Increase amlodopine to 10mg daily 08/12/2012 Appointment: María Elena Appiah WPtel: [address] [place], [place] [phone] OFFICE SURGERY 08/12/2012 Patient Education: Patient Medication Summary Completed 08/12/2012 Appointment: María Elena Appiah WPtel: [address] [place] [address] 05/03 vm on pt phone...pt called on 04/11 3 pt called wanting in had no one cancel so could not get her in for an appt sooner than 05/06. ACUTE ILLNESS 05/06/2012 Patient Education: Patient Medication Summary Completed 05/06/2012 Visit Plan: Pt wants to hold on any furt her sleep medications 04/03/2012 Appointment: María Elena Appiah WPtel: [address] [place] [address] FOLLOW UP 04/03/2012 Patient Education: Patient Medication Summary Completed 04/03/2012 Appointment: María Elena Appiah WPtel: [address] [place], [place] [phone] FOLLOW UP 03/19/2012 Patient Education: Patient Medication Summary Completed 03/19/2012 Appointment: María Elena Appiah WPtel: [address] [place], [place] [phone] BP CHECK 02/22/2012 Patient Education: Patient Medication Summary Completed 02/22/2012 Appointment: María Elena Appiah WPtel: [address] [place], [place] [phone] BP CHECK 02/21/2012 Patient Education: Patient Medication Summary Completed 02/21/2012 Visit Plan: Doxycycline and bactroban fo r foot Supportive care on ankles and knees Add norvasc for BP 02/20/2012 Appointment: María Elena Appiahtel: [address] [place] [id number] ER Follow UP 02/20/2012 Patient Education: Patient Medication Summary Completed 02/20/2012 Appointment: María Elena Appiahtel: [address] [place] [address] ACUTE ILLNESS 01/30/2012 Patient Education: Patient Medication Summary Completed 01/30/2012 Appointment: María Elena Appiahtel: [address] [place] [address] ACUTE ILLNESS 01/24/2012 Patient Education: Patient Medication Summary Completed 01/24/2012 Visit Plan: Daily back stretches, moist heat, Biofreeze prn OMT done 01/10/2012 Appointment: María Elena Appiahtel: [address] [place] [address] ACUTE ILLNESS 01/10/2012 Patient Education: Patient Medication Summary Completed 01/10/2012 Appointment: María Elena Appiahtel: [address] [place] [address] FOLLOW UP 12/11/2011 Patient Education: Patient Medication Summary Completed 12/11/2011 Appointment: María Elena Appiahtel: [address] [place] [address] ACUTE ILLNESS 11/09/2011 Patient Education: Patient Medication Summary Completed 11/09/2011 Appointment: María Elena Appiahtel: [address] [place] [address] ACUTE ILLNESS 09/13/2011 Patient Education: Patient Medication Summary Completed 09/13/2011 Visit Plan: Check CBC, TSH, Free T4, CMP , ESR, Vit D, B12 now Start Prednisone today 08/31/2011 Appointment: María Elena Appiahtel: [address] [place], [place] [id number] ACUTE ILLNESS 08/31/2011 Patient Education: Patient Medication Summary Completed 08/31/2011 Appointment: María Elena Appiahtel: [address] [place], [place] [phone] [place] INJECTION 07/20/2011 Patient Education: Patient Medication Summary Completed 07/20/2011 Visit Plan: Continue current meds Monite r BP Cont stretches from PT 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 07/06/2011 Appointment: María Elena Appiah WPtel: [address] [place] [address] FOLLOW UP 07/06/2011 Patient Education: Patient Medication Summary Completed 07/06/2011 Appointment: María Elena Appiah WPtel: [address] [place] [address] BP CHECK 06/06/2011 Patient Education: Patient Medication Summary Completed 06/06/2011 Visit Plan: Add Bystolic at 2.5mg QAM Ad d Robaxin 750mg 2 po q HS BP check in 2wks 05/22/2011 Appointment: María Elena Appiahtel: [address] [place] [address] FOLLOW UP 05/22/2011 Patient Education: Patient Medication Summary Completed 05/22/2011 Appointment: María Elena Appaih WPtel: [address] [place], [place] [phone] ER Follow UP 05/09/2011 Patient Education: Patient Medication Summary Completed 05/09/2011 Appointment: María Elena Appiah WPtel: [address] [place] [address] [place] FOLLOW UP 02/22/2011 Visit Plan: Rx written for Hydrocodone 1 0/325mg #240 See Ortho 02/14/2011 Appointment: María Elena Appiah WPtel: [address] [place], [place] [phone] OMT 02/14/2011 Patient Education: Patient Medication Summary [...] lab work. 02/03/2011 Appointment: Lashawn Eckert WPtel: [address] [place] [address] ACUTE ILLNESS 02/03/2011 Patient Education: Patient Medication Summary Completed 02/03/2011 Visit Plan: OMT done Cont daily stretche s 01/31/2011 Appointment: María Elena Appiah WPtel: [address] [place] [address] ACUTE ILLNESS 01/31/2011 Patient Education: Patient Medication Summary Completed 01/31/2011 Visit Plan: Continue pain meds OMT done Proceed with PT No work this summer01/25/2011 Appointment: María Elena Appiah WPtel: [address] [place] [address] ACUTE ILLNESS 01/25/2011 Patient Education: Patient Medication Summary Completed 01/25/2011 Visit Plan: Start PT Long discussion abo ut getting pain meds from only us and can only have max of 4grams of tylenol per day Change to Hydrocodone 10/325mg 1- 2 po TID prn pain--#180 called to Radha 01/18/2011 Appointment: María Elena Appiah WPtel: [address] [place] [address] FOLLOW UP 01/18/2011 Patient Education: Patient Medication Summary Completed 01/18/2011 Visit Plan: Daily back stretches, moist heat, Biofreeze prn 11/29/2010 Appointment: María Elena Appiah WPtel: [address] [place], [place] [phone] ER Follow UP 11/29/2010 Patient Education: Patient Medication Summary Completed 11/29/2010 Visit Plan: Saline nasal flushes prn. Ty lenol/Motrin prn headache. Notify if persists/symptoms worsening. Finish augmentin Add Medrol Dose Pack 10/10/2010 Appointment: María Elena Appiah WPtel: [address] [place], [place] [phone] ACUTE ILLNESS 10/10/2010 Patient Education: Patient Medication Summary Completed 10/10/2010 Visit Plan: Cryotherapy x3 to multiple l esions on both forearms 07/19/2010 Appointment: María Elena Appiah WPtel: [address] [place] [address] OFFICE SURGERY 07/19/2010 Patient Education: Patient Medication Summary Completed 07/19/2010 Appointment: María Elena Appiah WPtel: [address] [place] [address] BP CHECK 07/06/2010 Patient Education: Patient Medication Summary Completed 07/06/2010 Appointment: María Elena Appiah WPtel: [address] [place], [place] [phone] BP CHECK 06/30/2010 Patient Education: Patient Medication Summary Completed 06/30/2010 Appointment: María Elena Appiah WPtel: [address] [place], [place] [phone] BP CHECK 06/20/2010 Patient Education: Patient Medication Summary Completed 06/20/2010 Visit Plan: Change Diovan to Exforge 160 /5mg QD OMT done to thoracics BP check in 2wks 06/07/2010 Appointment: María Elena Appiah WPtel: [address] [place], [place] [phone] FOLLOW UP 06/07/2010 Patient Education: Patient Medication Summary Completed 06/07/2010 Appointment: María Elena Appiah WPtel: [address] [place] [address] BP CHECK 06/03/2010 Patient Education: Patient Medication Summary Completed 06/03/2010 Appointment: María Elena Appiah WPtel: [address] [place] [address] BP CHECK 06/01/2010 Patient Education: Patient Medication Summary Completed 06/01/2010 Visit Plan: Irritated skin tags to left neck x2 excised at base with scissors and base cauterized 05/30/2010 Appointment: María Elena Appiah WPtel: [address] [place] [address] OFFICE SURGERY 05/30/2010 Patient Education: Patient Medication Summary Completed 05/30/2010 Visit Plan: Saline nasal flushes prn. Ty lenol/Motrin prn headache. Notify if persists/symptoms worsening. Restart Nasonex Has allergy testing set for May 25 04/27/2010 Appointment: María Elena Appiah WPtel: [address] [place] [address] ACUTE ILLNESS 04/27/2010 Patient Education: Patient Medication Summary Completed 04/27/2010 Visit Plan: Saline nasal flushes prn. Ty lenol/Motrin prn headache. Notify if persists/symptoms worsening. Omnaris BID plus injections 04/05/2010 Appointment: María Elena Appiah WPtel: [address] [place] [address] ACUTE ILLNESS 04/05/2010 Patient Education: Patient Medication Summary Completed 04/05/2010 Visit Plan: Saline nasal flushes prn. Ty lenol/Motrin prn headache. Notify if persists/symptoms worsening. 03/09/2010 Appointment: María Elena Appiah WPtel: [address] [place] [address] ACUTE ILLNESS 03/09/2010 Patient Education: Patient Medication Summary Completed 03/09/2010 Visit Plan: Cont Clonidine as is Cont Pr emarin Fwup with surgery as scheduled 03/03/2010 Appointment: María Elena Appiah WPtel: [address] [place], [place] [id number] FOLLOW UP 03/03/2010 Patient Education: Patient Medication Summary Completed 03/03/2010 Visit Plan: Check Pelvic US now Discusse tacho Sal C vs Hysterectomy 01/17/2010 Appointment: María Elena Appiah WPtel: [address] [place], [place] [phone] ACUTE ILLNESS 01/17/2010 Patient Education: Patient Medication Summary Completed 01/17/2010 Visit Plan: Check fasting lab and schedu le Mammogram 2gm Na Diet Trial of Ambien 10mg qhs Fwup pending lab results 12/27/2009 Appointment: María Elena Appiah WPtel: [address] [place] [address] ESTABLISHED PATIENT 12/27/2009 Patient Education: Patient Medication Summary Completed 12/27/2009 Referral: Canelo Overton WPtel: [address] [place] [id number] [place] Referral Initiated Referral: Philipp Flores WPtel: [address] [id number] [place] Referral Appointment Requested Instructions Comment . [...] to rest and hydrate. Discussed stroke and ID symptoms. Pt. instructed to seek ER eval [...]
--- OUTSIDE RECORDS SUMMARY | 2020-03-13 05:01 | XMS REPORT | CCD ---
Author Author Gale Appiah D.O. Organization [facility] Address [address] [place] [id number] Phone Care Team Providers Care Asset Management Lead Name Role Phone María Elena Appiah D.O., PP Unavailable CCM Unavailable Summary Purpose Interface Exchange Insurance Providers Payer name Policy type / Coverage type Covered democrat ID Effective Begin Date Effective End Date [facility] Commercial Insurance [id number] Unknown Family History Family History data not found Social History Social History Element Codes Description Effective Dates Tobacco history SNOMED CT: [id number] Never smoker 05/22/2011 Allergies, Adverse Reactions, Alerts [...] Fill Instructions glimepiride 4 mg tablet RxNorm: 944426 1 Tablet(s) Oral two times a day replaces 2mg dose 01/13/2020 04/12/2020 Active lisinopril 40 mg tablet RxNorm: 013488 1 Tablet(s) Oral QD repl aces 20mg dose 01/13/2020 04/12/2020 Active hydrocodone 10 mg-acetaminophen 325 mg tablet RxNorm: 959672 1-2 Tablet(s) Oral three times a day as needed for pain 01/12/2020 No Stop Date Active cyclobenzaprine 10 mg tablet RxNorm: 760944 TAKE ONE TA BLET BY MOUTH THREE TIMES A DAY NEEDED FOR MUSCLE SPASMS 01/05/2020 No Stop Date Active triamterene 75 mg-hydrochlorothiazide 50 mg tablet RxNorm: 3 50350 TAKE ONE TABLET BY MOUTH DAILY 12/29/2019 No Stop Date Active Klor-Con 8 mEq tablet,extended release RxNorm: 123376 T FARRUKH ONE TABLET BY MOUTH TWICE A DAY 12/19/2019 No Stop Date Active allopurinol 300 mg tablet RxNorm: 300089 TAKE ONE TABLET BY LOPEZ TH DAILY 12/19/2019 No Stop Date Active glimepiride 2 mg tablet RxNorm: 153355 TAKE ONE TABLET BY MOUTH TWICE A DAY 12/19/2019 01/12/2020 Inactive hydrocodone 10 mg-acetaminophen 325 mg tablet RxNorm: 922303 1-2 Tablet(s) Oral three times a day as needed for pain 12/10/2019 01/11/2020 Inactive Januvia 100 mg tablet RxNorm: 254071 1 Tablet(s) Oral QD 11/20/2019 0 11/20/2019 Inactive glimepiride 2 mg tablet RxNorm: 483337 1 Tablet(s) Oral two sawyer es a day 11/20/2019 12/18/2019 Inactive cyclobenzaprine 10 mg tablet RxNorm: 129747 TAKE ONE TA BLET BY MOUTH THREE TIMES A DAY NEEDED FOR MUSCLE SPASMS 11/17/2019 01/04/2020 Inactive doxepin 25 mg capsule RxNorm: 5658335 TAKE ONE CAPSULE B Y MOUTH EVERY NIGHT AT BEDTIME NEEDED FOR SLEEP 11/16/2019 No Stop Date Active Klor-Con 8 mEq tablet,extended release RxNorm: 584416 T FARRUKH ONE TABLET BY MOUTH TWICE A DAY 11/16/2019 12/18/2019 Inactive hydrocodone 10 mg-acetaminophen 325 mg tablet RxNorm: 521288 1-2 Tablet(s) Oral three times a day as needed for pain 11/10/2019 12/09/2019 Inactive cyclobenzaprine 10 mg tablet RxNorm: 765023 TAKE ONE TA BLET BY MOUTH THREE TIMES A DAY NEEDED FOR MUSCLE SPASMS 10/23/2019 11/16/2019 Inactive duloxetine 60 mg capsule,delayed release RxNorm: 172604 1 Capsu le(s) Oral QD 10/17/2019 04/13/2020 Active celecoxib 200 mg capsule RxNorm: 994827 1 Capsule(s) Or al two times a day as needed for pain 10/17/2019 01/14/2020 Active gabapentin 300 mg capsule RxNorm: 846605 1 Capsule(s) O ral every night at bedtime 10/17/2019 01/15/2020 Active Singulair 10 mg tablet RxNorm: 089922 1 Tablet(s) Oral QD 10/17/2019 04/14/2020 Active metoprolol tartrate 100 mg tablet RxNorm: 036526 1 Tabl et(s) Oral two times a day 10/17/2019 04/13/2020 Active clonidine HCl 0.1 mg tablet RxNorm: 131423 1 Tablet(s) Oral fou r times a day 10/17/2019 04/13/2020 Active Lipitor 10 mg tablet RxNorm: 938223 1 Tablet(s) Oral QD 10/17/2019 Active Steglatro 15 mg tablet RxNorm: 1538207 1 Tablet(s) Oral QD 10/17/19 No Stop Date Active lisinopril 20 mg tablet RxNorm: 862481 1 Tablet(s) Oral QD 10/17/19 20 01/12/2020 Inactive Klor-Con 8 mEq tablet,extended release RxNorm: 752219 1 Tablet(s) Oral two times a day 10/17/2019 11/15/2019 Inactive Januvia 100 mg tablet RxNorm: 198945 1 Tablet(s) Oral QD 10/17/2019 0 01/12/2020 Inactive Glyxambi 25 mg-5 mg tablet RxNorm: 4695109 1 Tablet(s) Oral QD 01/202010/16/2019 Inactive Patient will bring in copay discount card as well Glyxambi 25 mg-5 mg tablet RxNorm: 1683304 1 Tablet(s) Oral QD 01/202010/14/2019 Inactive Patient will bring in copay discount card as well Keflex 500 mg capsule RxNorm: 184790 1 Capsule(s) Oral two time s a day 10/07/2019 10/14/2019 Inactive Premarin 1.25 mg tablet RxNorm: 043216 1 Tablet(s) Oral QD 09/30/19 20 06/25/2020 Active hydrocodone 10 mg-acetaminophen 325 mg tablet RxNorm: 923698 1-2 Tablet(s) Oral three times a day as needed for pain 09/30/2019 09/30/2019 Inactive baclofen 10 mg tablet RxNorm: 621409 TAKE ONE TABLET BY MOUTH THREE TIMES A DAY NEEDED 09/19/2019 No Stop Date Active gabapentin 300 mg capsule RxNorm: 539515 TAKE ONE CAPSU LE BY MOUTH EVERY NIGHT AT BEDTIME 09/19/2019 10/16/2019 Inactive Klor-Con 8 mEq tablet,extended release RxNorm: 817230 T FARRUKH ONE TABLET BY MOUTH TWICE A DAY 1 Tablet(s) Oral two times a day 09/19/2019 10/16/2019 Renu ctive hydrocodone 10 mg-acetaminophen 325 mg tablet RxNorm: 184564 1-2 Tablet(s) Oral three times a day as needed for pain 09/19/2019 09/29/2019 Inactive duloxetine 60 mg capsule,delayed release RxNorm: 158794 TAKE ONE CAPSULE BY MOUTH DAILY 09/11/2019 10/16/2019 Inactive Lipitor 10 mg tablet RxNorm: 882220 TAKE ONE TABLET BY MOUTH AT BEDTIME 09/11/2019 10/16/2019 Inactive lisinopril 20 mg tablet RxNorm: 676126 TAKE ONE TABLET BY MOUTH DAILY .... THIS REPLACE 10MG TABLETS 09/11/2019 10/16/2019 Inactive triamterene 75 mg-hydrochlorothiazide 50 mg tablet RxNorm: 3 67866 TAKE ONE TABLET BY MOUTH DAILY 09/11/2019 12/28/2019 Inactive allopurinol 300 mg tablet RxNorm: 694211 TAKE ONE TABLET BY LOPEZ TH DAILY 09/11/2019 12/18/2019 Inactive celecoxib 200 mg capsule RxNorm: 464763 TAKE ONE CAPSUL E BY MOUTH TWICE A DAY NEEDED FOR PAIN 09/11/2019 10/16/2019 Inactive clonidine HCl 0.1 mg tablet RxNorm: 142010 TAKE ONE TAB LET BY MOUTH FOUR TIMES A DAY 09/11/2019 10/16/2019 Inactive doxepin 25 mg capsule RxNorm: 5017429 1 Capsule(s) Oral every night at bedtime as needed for sleep 08/21/2019 11/15/2019 Inactive hydrocodone 10 mg-acetaminophen 325 mg tablet RxNorm: 601831 1-2 Tablet(s) PO TID 08/12/2019 09/29/2019 Inactive as needed for pa in - Previous quantity #240, will start dosing for #180 in April 2011 per Doctor Td. Medrol (Dustin) 4 mg tablets in a dose pack RxNorm: 863123 Tablet(s) Oral As Directed 07/21/2019 09/29/2019 Inactive Premarin 1.25 mg tablet RxNorm: 620943 1 Tablet(s) Oral QD 07/02/2009/29/2019 Inactive hydrocodone 10 mg-acetaminophen 325 mg tablet RxNorm: 951454 1-2 Tablet(s) PO TID 07/01/2019 08/11/2019 Inactive as needed for pa in - Previous quantity #240, will start dosing for #180 in April 2011 per Doctor Td. gabapentin 300 mg capsule RxNorm: 460080 1 Capsule(s) PO QHS 201809/18/2019 Inactive celecoxib 200 mg capsule RxNorm: 601519 1 Capsule(s) Or al two times a day as needed for pain 06/27/2019 06/27/2019 Inactive doxepin 25 mg capsule RxNorm: 2302110 TAKE ONE CAPSULE B Y MOUTH EVERY NIGHT AT BEDTIME NEEDED FOR SLEEP 06/24/2019 08/20/2019 Inactive Singulair 10 mg tablet RxNorm: 838834 TAKE ONE TABLET BY MOUTH JOSÉ Y 06/24/2019 10/16/2019 Inactive furosemide 40 mg tablet RxNorm: 753728 TAKE ONE TABLET BY MOUTH EVERY MORNING NEEDED FOR EDEMA . TAKE WITH POTASSIUM 06/24/2019 01/12/2020 Inactive lisinopril 20 mg tablet RxNorm: 511687 TAKE ONE TABLET BY MOUTH DAILY .... THIS REPLACE 10MG TABLETS 06/24/2019 09/10/2019 Inactive nystatin-triamcinolone 100,000 unit/g-0.1 % topical cream Rx Norm: 6131880 1 Application Topical two times a day 06/12/2019 06/19/2019 Inactive apply BID for 1 week nystatin-triamcinolone 100,000 unit/g-0.1 % topical cream Rx Norm: 1283121 1 Application Topical two times a day 06/12/2019 06/11/2019 Inactive apply BID for 1 week hydrocodone 10 mg-acetaminophen 325 mg tablet RxNorm: 485100 1-2 Tablet(s) PO QID as needed for pain MUST LAST 30 DAYS 05/28/2019 06/26/2019 Inactiv e (Response to an electronic controlled substance refill request - RxReferenceNumber: [id number]) baclofen 20 mg tablet RxNorm: 683140 1 Tablet(s) PO TID as needed for muscle spasm 05/19/2019 05/27/2019 Inactive gabapentin 300 mg capsule RxNorm: 509375 1 Capsule(s) PO QHS 201805/27/2019 Inactive lisinopril 20 mg tablet RxNorm: 909707 1 Tablet(s) PO Q D TAKE ONE TABLET BY MOUTH DAILY, REPLACES 10 MG DOSE 05/19/2019 06/23/2019 Inactive doxepin 25 mg capsule RxNorm: 1210417 TAKE ONE CAPSULE B Y MOUTH EVERY NIGHT AT BEDTIME NEEDED FOR SLEEP 05/16/2019 06/14/2019 Inactive lisinopril 20 mg tablet RxNorm: 298585 TAKE ONE TABLET BY MOUTH DAILY, REPLACES 10 MG DOSE 05/16/2019 05/18/2019 Inactive Singulair 10 mg tablet RxNorm: 379213 TAKE ONE TABLET BY MOUTH JOSÉ Y 05/16/2019 06/14/2019 Inactive gabapentin 300 mg capsule RxNorm: 598443 1 Capsule(s) PO QHS 201805/04/2019 Inactive estropipate 1.5 mg tablet RxNorm: 646000 1 Tablet(s) PO QD 05/05/2005/27/2019 Inactive estropipate 1.5 mg tablet RxNorm: 441646 1 Tablet(s) PO QD 05/05/20 19 05/04/2019 Inactive gabapentin 300 mg capsule RxNorm: 686533 1 Capsule(s) PO QHS 201805/18/2019 Inactive hydrocodone 10 mg-acetaminophen 325 mg tablet RxNorm: 440934 1-2 Tablet(s) PO QID as needed for pain MUST LAST 30 DAYS 04/25/2019 05/24/2019 Inactiv e (Response to an electronic controlled substance refill request - RxReferenceNumber: [id number]) cyclobenzaprine 10 mg tablet RxNorm: 927273 TAKE ONE TA BLET BY MOUTH THREE TIMES A DAY NEEDED FOR MUSCLE SPASMS 04/24/2019 05/18/2019 Inactive metoprolol tartrate 100 mg tablet RxNorm: 552708 TAKE O NE TABLET BY MOUTH TWICE A DAY 04/24/2019 10/16/2019 Inactive Lyrica 75 mg capsule RxNorm: 034953 1 Capsule(s) PO QHS 03/25/2019 Inactive duloxetine 60 mg capsule,delayed release RxNorm: 589309 TAKE ONE CAPSULE BY MOUTH DAILY 03/21/2019 05/19/2019 Inactive triamterene 75 mg-hydrochlorothiazide 50 mg tablet RxNorm: 3 14127 TAKE ONE TABLET BY MOUTH DAILY 03/21/2019 05/19/2019 Inactive Klor-Con 8 mEq tablet,extended release RxNorm: 378481 T FARRUKH ONE TABLET BY MOUTH TWICE A DAY 03/21/2019 09/18/2019 Inactive Lipitor 10 mg tablet RxNorm: 598532 TAKE ONE TABLET BY MOUTH AT BEDTIME 03/21/2019 09/10/2019 Inactive clonidine HCl 0.1 mg tablet RxNorm: 916634 TAKE ONE TAB LET BY MOUTH FOUR TIMES A DAY 03/21/2019 05/19/2019 Inactive allopurinol 300 mg tablet RxNorm: 385978 TAKE ONE TABLET BY LOPEZ TH DAILY 03/21/2019 05/19/2019 Inactive hydrocodone 10 mg-acetaminophen 325 mg tablet RxNorm: 287539 1-2 Tablet(s) PO QID as needed for pain MUST LAST 30 DAYS 02/28/2019 03/29/2019 Inactiv e (Response to an electronic controlled substance refill request - RxReferenceNumber: [id number]) furosemide 40 mg tablet RxNorm: 970546 TAKE ONE TABLET BY MOUTH EVERY MORNING NEEDED FOR EDEMA . TAKE WITH POTASSIUM 02/21/2019 03/22/2019 Inactive cyclobenzaprine 10 mg tablet RxNorm: 140348 TAKE ONE TA BLET BY MOUTH THREE TIMES A DAY NEEDED FOR MUSCLE SPASMS 02/21/2019 04/21/2019 Inactive lisinopril 20 mg tablet RxNorm: 626588 TAKE ONE TABLET BY MOUTH DAILY, REPLACES 10 MG DOSE 02/21/2019 05/15/2019 Inactive doxepin 25 mg capsule RxNorm: 5194667 TAKE ONE CAPSULE B Y MOUTH EVERY NIGHT AT BEDTIME NEEDED FOR SLEEP 02/21/2019 05/15/2019 Inactive nystatin 100,000 unit/gram topical cream RxNorm: 011497 APPLY TO AFFECTED AREA(S) TWO TIMES A DAY 02/21/2019 03/22/2019 Inactive estradiol 1 mg tablet RxNorm: 299519 2 Tablet(s) PO QD replaces premarin 01/22/2019 05/04/2019 Inactive lisinopril 20 mg tablet RxNorm: 131983 TAKE ONE TABLET BY MOUTH DAILY, REPLACES 10 MG DOSE 01/20/2019 02/18/2019 Inactive cyclobenzaprine 10 mg tablet RxNorm: 132865 TAKE ONE TA BLET BY MOUTH THREE TIMES A DAY NEEDED FOR MUSCLE SPASMS 01/20/2019 02/18/2019 Inactive metoprolol tartrate 100 mg tablet RxNorm: 185929 TAKE O NE TABLET BY MOUTH TWICE A DAY 01/20/2019 02/18/2019 Inactive cyclobenzaprine 10 mg tablet RxNorm: 021840 TAKE ONE TA BLET BY MOUTH THREE TIMES A DAY NEEDED FOR MUSCLE SPASMS 12/19/2018 01/17/2019 Inactive lisinopril 20 mg tablet RxNorm: 286899 TAKE ONE TABLET BY MOUTH DAILY, REPLACES 10 MG DOSE 12/19/2018 01/17/2019 Inactive duloxetine 60 mg capsule,delayed release RxNorm: 422289 TAKE ONE CAPSULE BY MOUTH DAILY 12/19/2018 01/17/2019 Inactive Lipitor 10 mg tablet RxNorm: 104312 TAKE ONE TABLET BY MOUTH AT BEDTIME 12/19/2018 01/17/2019 Inactive cyclobenzaprine 10 mg tablet RxNorm: 549657 1 Tablet(s) PO TID as needed for muscle spasm 11/19/2018 12/18/2018 Inactive Singulair 10 mg tablet RxNorm: 780738 1 Tablet(s) PO QD 11/19/2018 Inactive lisinopril 20 mg tablet RxNorm: 439246 TAKE ONE TABLET BY MOUTH DAILY, REPLACES 10 MG DOSE 11/15/2018 12/18/2018 Inactive hydrocodone 10 mg-acetaminophen 325 mg tablet RxNorm: 615081 1-2 Tablet(s) PO QID as needed for pain MUST LAST 30 DAYS 11/13/2018 12/12/2018 Inactiv e (Response to an electronic controlled substance refill request - RxReferenceNumber: [id number]) nystatin 100,000 unit/gram topical cream RxNorm: 279456 APPLY TO AFFECTED AREA(S) TWO TIMES A DAY 10/23/2018 11/06/2018 Inactive lisinopril 20 mg tablet RxNorm: 033176 1 Tablet(s) PO QD replac es 10mg dose 10/18/2018 11/14/2018 Inactive hydrocodone 10 mg-acetaminophen 325 mg tablet RxNorm: 941997 1-2 Tablet(s) QID as needed for pain MUST LAST 30 DAYS 10/08/2018 11/06/2018 Inactive (Response to an electronic controlled substance refill request - RxReferenceNumber: [id number]) lisinopril 10 mg tablet RxNorm: 477017 1 Tablet(s) PO QD 10/03/2018 0 01/21/2019 Inactive Celebrex 200 mg capsule RxNorm: 432295 TAKE ONE CAPSULE BY MOUT H TWICE A DAY 09/30/2018 05/04/2019 Inactive cyclobenzaprine 10 mg tablet RxNorm: 467732 TAKE ONE TA BLET BY MOUTH THREE TIMES A DAY NEEDED FOR MUSCLE SPASMS 09/30/2018 11/18/2018 Inactive doxepin 25 mg capsule RxNorm: 8349286 TAKE ONE CAPSULE B Y MOUTH EVERY NIGHT AT BEDTIME NEEDED 09/05/2018 10/16/2018 Inactive omeprazole 40 mg capsule,delayed release RxNorm: 595759 TAKE ONE CAPSULE BY MOUTH DAILY 09/05/2018 01/21/2019 Inactive furosemide 40 mg tablet RxNorm: 672133 TAKE ONE TABLET BY MOUTH EVERY MORNING NEEDED FOR EDEMA . TAKE WITH POTASSIUM 09/05/2018 11/03/2018 Inactive phentermine 37.5 mg tablet RxNorm: 245273 1 Tablet(s) PO QAM 201701/21/2019 Inactive doxepin 25 mg capsule RxNorm: 2424286 1 Capsule(s) PO QH S as needed for sleep TAKE ONE CAPSULE BY MOUTH EVERY NIGHT AT BEDTIME NEEDED 08/27/2018 09/04/2018 Inactive Keflex 500 mg capsule RxNorm: 618581 1 Capsule(s) PO TID 08/09/2018 1 10/19/2017 Inactive Diflucan 100 mg tablet RxNorm: 148855 1 Tablet(s) PO QD 08/09/2018 Inactive Premarin 1.25 mg tablet RxNorm: 483163 2 Tablet(s) PO QD 08/09/2018 0 05/04/2019 Inactive Zofran ODT 4 mg disintegrating tablet RxNorm: 019406 1 Tablet(s) PO Q4H as needed for nausea 08/09/2018 01/21/2019 Inactive metoprolol tartrate 100 mg tablet RxNorm: 191828 TAKE O NE TABLET BY MOUTH TWICE A DAY 2018 10/04/2018 Inactive doxepin 25 mg capsule RxNorm: 4392350 TAKE ONE CAPSULE B Y MOUTH EVERY NIGHT AT BEDTIME NEEDED 2018 08/26/2018 Inactive cyclobenzaprine 10 mg tablet RxNorm: 486676 TAKE ONE TA BLET BY MOUTH THREE TIMES A DAY NEEDED FOR MUSCLE SPASMS 2018 09/29/2018 Inactive hydrocodone 10 mg-acetaminophen 325 mg tablet RxNorm: 112244 1-2 Tablet(s) QID as needed for pain MUST LAST 30 DAYS 07/29/2018 08/27/2018 Inactive (Response to an electronic controlled substance refill request - RxReferenceNumber: [id number]) nystatin 100,000 unit/gram topical powder RxNorm: 970849 Applic ation TOP BID 07/22/2018 08/04/2018 Inactive doxepin 25 mg capsule RxNorm: 5996147 1 Capsule(s) PO QHS as needed 07/22/2018 08/05/2018 Inactive triamterene 75 mg-hydrochlorothiazide 50 mg tablet RxNorm: 3 05215 TAKE ONE TABLET BY MOUTH DAILY 07/05/2018 10/02/2018 Inactive duloxetine 60 mg capsule,delayed release RxNorm: 045728 TAKE ONE CAPSULE BY MOUTH DAILY 07/05/2018 09/02/2018 Inactive Klor-Con 8 mEq tablet,extended release RxNorm: 276504 T FARRUKH ONE TABLET BY MOUTH TWICE A DAY 07/05/2018 10/02/2018 Inactive Lipitor 10 mg tablet RxNorm: 483627 TAKE ONE TABLET BY MOUTH AT BEDTIME 07/05/2018 09/02/2018 Inactive allopurinol 300 mg tablet RxNorm: 107691 TAKE ONE TABLET BY LOPEZ TH DAILY 07/05/2018 10/02/2018 Inactive clonidine HCl 0.1 mg tablet RxNorm: 409145 TAKE ONE TAB LET BY MOUTH FOUR TIMES A DAY 07/05/2018 10/02/2018 Inactive hydrocodone 10 mg-acetaminophen 325 mg tablet RxNorm: 690512 1-2 Tablet(s) QID as needed for pain MUST LAST 30 DAYS 06/28/2018 07/27/2018 Inactive (Response to an electronic controlled substance refill request - RxReferenceNumber: [id number]) MediHoney (calcium alginate-honey) 4" X 5" bandage RxNorm: 1 Application TOP QD 06/17/2018 06/26/2018 Inactive honey-hydrocolloid dressing 4" X 5" RxNorm: 1 Application TOP QD 06/17/2018 07/16/2018 Inactive furosemide 40 mg tablet RxNorm: 812544 TAKE ONE TABLET BY MOUTH EVERY MORNING NEEDED FOR EDEMA . TAKE WITH POTASSIUM 06/10/2018 07/09/2018 Inactive This is a refill request. hydrocodone 10 mg-acetaminophen 325 mg tablet RxNorm: 915907 1-2 Tablet(s) QID as needed for pain MUST LAST 30 DAYS 05/30/2018 06/27/2018 Inactive (Response to an electronic controlled substance refill request - RxReferenceNumber: [id number]) acyclovir 800 mg tablet RxNorm: 049898 1 Tablet(s) PO 5x day 201705/22/2018 Inactive Premarin 1.25 mg tablet RxNorm: 370339 1-2 Tablet(s) PO QD 05/15/20 18 07/13/2018 Inactive cyclobenzaprine 10 mg tablet RxNorm: 122118 1 Tablet(s) PO TID as needed for muscle spasm 05/09/2018 05/08/2018 Inactive Medrol (Dustin) 4 mg tablets in a dose pack RxNorm: 166153 Tablet(s) PO As Directed 05/02/2018 06/16/2018 Inactive hydrocodone 10 mg-acetaminophen 325 mg tablet RxNorm: 414000 1-2 Tablet(s) QID as needed for pain MUST LAST 30 DAYS 04/30/2018 05/29/2018 Inactive (Response to an electronic controlled substance refill request - RxReferenceNumber: [id number]) duloxetine 60 mg capsule,delayed release RxNorm: 405899 TAKE ONE CAPSULE BY MOUTH DAILY 04/16/2018 05/15/2018 Inactive Celebrex 200 mg capsule RxNorm: 167559 TAKE ONE CAPSULE BY MOUT H TWICE A DAY 04/16/2018 06/14/2018 Inactive Singulair 10 mg tablet RxNorm: 301977 TAKE ONE TABLET BY MOUTH JOSÉ Y 04/16/2018 11/19/2018 Inactive Lipitor 10 mg tablet RxNorm: 341946 TAKE ONE TABLET BY MOUTH AT BEDTIME 04/16/2018 05/15/2018 Inactive hydrocodone 10 mg-acetaminophen 325 mg tablet RxNorm: 770041 1-2 Tablet(s) QID as needed for pain MUST LAST 30 DAYS 03/29/2018 04/27/2018 Inactive (Response to an electronic controlled substance refill request - RxReferenceNumber: [id number]) cyclobenzaprine 10 mg tablet RxNorm: 782321 1 Tablet(s) PO TID as needed for muscle spasm 03/18/2018 05/09/2018 Inactive omeprazole 40 mg capsule,delayed release RxNorm: 831547 1 Capsu le(s) PO QD 02/26/2018 08/24/2018 Inactive hydrocodone 10 mg-acetaminophen 325 mg tablet RxNorm: 416984 1-2 Tablet(s) QID as needed for pain MUST LAST 30 DAYS 02/26/2018 03/27/2018 Inactive (Response to an electronic controlled substance refill request - RxReferenceNumber: [id number]) metoprolol tartrate 100 mg tablet RxNorm: 750256 1 Tablet(s) PO BID 02/18/2018 08/05/2018 Inactive Lyrica 75 mg capsule RxNorm: 725364 1 Capsule(s) PO QHS 01/30/2018 Inactive phentermine 37.5 mg tablet RxNorm: 371675 1 Tablet(s) PO QAM 201706/16/2018 Inactive hydrocodone 10 mg-acetaminophen 325 mg tablet RxNorm: 907814 1-2 Tablet(s) QID as needed for pain MUST LAST 30 DAYS 01/29/2018 02/25/2018 Inactive (Response to an electronic controlled substance refill request - RxReferenceNumber: [id number]) Klor-Con 8 mEq tablet,extended release RxNorm: 293283 1 Tablet( s) PO BID 01/14/2018 07/04/2018 Inactive allopurinol 300 mg tablet RxNorm: 951270 1 Tablet(s) PO QD 01/15/2007/04/2018 Inactive Lipitor 10 mg tablet RxNorm: 891850 1 Tablet(s) PO QHS 01/14/201812/2017 Inactive triamterene 75 mg-hydrochlorothiazide 50 mg tablet RxNorm: 3 85354 1 Tablet(s) PO QD 01/14/2018 07/04/2018 Inactive hydrocodone 10 mg-acetaminophen 325 mg tablet RxNorm: 376823 1-2 Tablet(s) QID as needed for pain MUST LAST 30 DAYS 12/27/2017 01/25/2018 Inactive (Response to an electronic controlled substance refill request - RxReferenceNumber: [id number]) Onglyza 5 mg tablet RxNorm: 371936 1 Tablet(s) PO QD 12/18/201701/29 Inactive metformin 500 mg tablet RxNorm: 024260 1 Tablet(s) PO BID 12/11/2017 12/10/2017 Inactive metformin 500 mg tablet RxNorm: 962045 1 Tablet(s) PO BID 12/11/2017 12/17/2017 Inactive furosemide 40 mg tablet RxNorm: 721415 1 Tablet(s) PO Q AM prn edema--take with potassium 12/11/2017 06/08/2018 Inactive cyclobenzaprine 10 mg tablet RxNorm: 802993 1 Tablet(s) PO TID as needed for muscle spasm 12/11/2017 03/18/2018 Inactive hydrocodone 10 mg-acetaminophen 325 mg tablet RxNorm: 050800 1-2 Tablet(s) QID as needed for pain MUST LAST 30 DAYS 10/23/2017 11/21/2017 Inactive (Response to an electronic controlled substance refill request - RxReferenceNumber: [id number]) Lipitor 10 mg tablet RxNorm: 693353 1 Tablet(s) PO QHS 10/16/201703/2018 Inactive cyclobenzaprine 10 mg tablet RxNorm: 119186 1 Tablet(s) PO TID as needed for muscle spasm 10/09/2017 12/10/2017 Inactive hydroxyzine HCl 25 mg tablet RxNorm: 061558 1 Tablet(s) PO BID as needed for anxiety 09/20/2017 01/29/2018 Inactive Effexor XR 75 mg capsule,extended release RxNorm: 982588 1 Caps ule(s) PO QD 09/20/2017 01/29/2018 Inactive metoprolol tartrate 100 mg tablet RxNorm: 909321 1 Tablet(s) PO BID 08/20/2017 02/18/2018 Inactive baclofen 20 mg tablet RxNorm: 478794 1 Tablet(s) PO TID as needed for muscle spasm 08/20/2017 01/21/2019 Inactive clonidine HCl 0.1 mg tablet RxNorm: 634428 1 Tablet(s) PO QID 08/2005/16/2018 Inactive Seroquel 25 mg tablet RxNorm: 721921 1 Tablet(s) PO QHS 08/17/2017 Inactive Seroquel 25 mg tablet RxNorm: 198104 1 Tablet(s) PO QHS 08/17/2017 Inactive Diflucan 100 mg tablet RxNorm: 397035 TAKE ONE TABLET BY MOUTH JOSÉ Y 07/25/2017 08/07/2017 Inactive hydrocodone 10 mg-acetaminophen 325 mg tablet RxNorm: 080496 1-2 Tablet(s) QID as needed for pain MUST LAST 30 DAYS 07/19/2017 08/17/2017 Inactive (Response to an electronic controlled substance refill request - RxReferenceNumber: [id number]) clindamycin 300 mg capsule RxNorm: 737810 1 Capsule(s) PO TID 07/1907/28/2017 Inactive clotrimazole-betamethasone 1 %-0.05 % topical cream RxNorm: 557649 Application TOP BID to elbow rash 07/19/2017 06/16/2018 Inactive Singulair 10 mg tablet RxNorm: 577204 Tablet(s) TAKE ONE TABLET BY MOUTH DAILY 07/18/2017 04/13/2018 Inactive triamterene 75 mg-hydrochlorothiazide 50 mg tablet RxNorm: 3 86104 1 Tablet(s) PO QD 07/18/2017 01/14/2018 Inactive Celebrex 200 mg capsule RxNorm: 262711 Capsule(s) TAKE ONE CAPSULE BY MOUTH TWICE A DAY 07/18/2017 10/15/2017 Inactive hydrocodone 10 mg-acetaminophen 325 mg tablet RxNorm: 040698 1-2 Tablet(s) QID as needed for pain MUST LAST 30 DAYS 06/19/2017 07/18/2017 Inactive (Response to an electronic controlled substance refill request - RxReferenceNumber: [id number]) hydrocodone 10 mg-acetaminophen 325 mg tablet RxNorm: 632966 1-2 Tablet(s) QID as needed for pain MUST LAST 30 DAYS 06/19/2017 06/18/2017 Inactive (Response to an electronic controlled substance refill request - RxReferenceNumber: [id number]) baclofen 20 mg tablet RxNorm: 678907 1 Tablet(s) PO TID as needed for muscle spasm 06/18/2017 08/20/2017 Inactive Medrol (Dustin) 4 mg tablets in a dose pack RxNorm: 837286 Tablet(s) PO As Directed 06/05/2017 07/18/2017 Inactive omeprazole 40 mg capsule,delayed release RxNorm: 271777 1 Capsu le(s) PO QD 04/20/2017 10/16/2017 Inactive Premarin 1.25 mg tablet RxNorm: 314142 1-2 Tablet(s) PO QD 04/11/20 17 05/15/2018 Inactive duloxetine 60 mg capsule,delayed release RxNorm: 162934 1 Capsu le(s) PO QD 04/11/2017 09/19/2017 Inactive furosemide 40 mg tablet RxNorm: 944371 1 Tablet(s) PO Q AM prn edema--take with potassium 04/11/2017 12/11/2017 Inactive Klor-Con 8 mEq tablet,extended release RxNorm: 145800 1 Tablet( s) PO BID 04/11/2017 01/14/2018 Inactive Lipitor 10 mg tablet RxNorm: 809304 1 Tablet(s) PO QHS 04/11/201702/2018 Inactive amlodipine 5 mg-benazepril 20 mg capsule RxNorm: 379239 1 Capsu le(s) PO QD 04/11/2017 01/29/2018 Inactive allopurinol 300 mg tablet RxNorm: 432928 1 Tablet(s) PO QD 04/11/20 17 01/14/2018 Inactive clonidine HCl 0.1 mg tablet RxNorm: 427209 1 Tablet(s) PO QID 04/0508/19/2017 Inactive baclofen 20 mg tablet RxNorm: 061754 1 Tablet(s) PO TID as needed for muscle spasm 04/02/2017 06/18/2017 Inactive Premarin 1.25 mg tablet RxNorm: 240709 1-2 Tablet(s) PO QD 03/20/20 17 04/10/2017 Inactive hydrocodone 10 mg-acetaminophen 325 mg tablet RxNorm: 270452 1-2 Tablet(s) QID as needed for pain MUST LAST 30 DAYS 03/14/2017 01/21/2019 Inactive (Response to an electronic controlled substance refill request - RxReferenceNumber: [id number]) metoprolol tartrate 100 mg tablet RxNorm: 123370 1 Tablet(s) PO BID 02/12/2017 08/20/2017 Inactive hydrocodone 10 mg-acetaminophen 325 mg tablet RxNorm: 676629 1-2 Tablet(s) QID as needed for pain MUST LAST 30 DAYS 02/08/2017 03/09/2017 Inactive (Response to an electronic controlled substance refill request - [facility] [id number]) metoprolol tartrate 100 mg tablet RxNorm: 406726 TAKE O NE TABLET BY MOUTH TWICE A DAY 01/11/2017 02/12/2017 Inactive metoprolol tartrate 100 mg tablet RxNorm: 501195 1 Tablet(s) PO BID 12/18/2016 12/17/2016 Inactive metoprolol tartrate 100 mg tablet RxNorm: 416616 1 Tablet(s) PO BID 12/18/2016 01/10/2017 Inactive furosemide 40 mg tablet RxNorm: 876382 1 Tablet(s) PO Q AM prn edema--take with potassium 12/13/2016 02/10/2017 Inactive amitriptyline 100 mg tablet RxNorm: 577330 1 Tablet(s) PO QHS 11/2812/12/2016 Inactive baclofen 20 mg tablet RxNorm: 326281 1 Tablet(s) PO TID as needed for muscle spasm 11/14/2016 04/01/2017 Inactive triamterene 75 mg-hydrochlorothiazide 50 mg tablet RxNorm: 3 51324 1 Tablet(s) PO QD 11/14/2016 11/13/2016 Inactive metolazone 2.5 mg tablet RxNorm: 344470 TAKE ONE TABLET BY MOUTH DAILY NEEDED FOR EDEMA 11/14/2016 12/12/2016 Inactive triamterene 75 mg-hydrochlorothiazide 50 mg tablet RxNorm: 3 30550 1 Tablet(s) PO QD 11/14/2016 07/18/2017 Inactive amitriptyline 50 mg tablet RxNorm: 174099 TAKE ONE TABL ET BY MOUTH AT BEDTIME NEEDED FOR SLEEP 11/14/2016 11/27/2016 Inactive Cymbalta 60 mg capsule,delayed release RxNorm: 892273 1 Capsule (s) PO QHS 11/14/2016 12/12/2016 Inactive clonidine HCl 0.1 mg tablet RxNorm: 956311 1 Tablet(s) PO QID 11/1304/04/2017 Inactive amitriptyline 50 mg tablet RxNorm: 496645 1 Tablet(s) P O QHS as needed for sleep 11/01/2016 11/27/2016 Inactive duloxetine 60 mg capsule,delayed release RxNorm: 822074 TAKE ONE CAPSULE BY MOUTH DAILY 10/20/2016 01/17/2017 Inactive allopurinol 300 mg tablet RxNorm: 192526 TAKE ONE TABLET BY LOPEZ TH DAILY 10/20/2016 01/16/2017 Inactive Lyrica 75 mg capsule RxNorm: 539114 TAKE ONE CAPSULE BY MOUTH EVERY NIGHT AT BEDTIME 10/20/2016 12/10/2016 Inactive Klor-Con 8 mEq tablet,extended release RxNorm: 470919 T FARRUKH ONE TABLET BY MOUTH TWICE A DAY 10/20/2016 01/17/2017 Inactive Celebrex 200 mg capsule RxNorm: 965066 TAKE ONE CAPSULE BY MOUT H TWICE A DAY 10/20/2016 07/18/2017 Inactive Bystolic 10 mg tablet RxNorm: 303356 TAKE ONE TABLET BY MOUTH EVERY NIGHT AT BEDTIME 10/20/2016 12/17/2016 Inactive amlodipine 5 mg-benazepril 20 mg capsule RxNorm: 824936 TAKE ONE CAPSULE BY MOUTH EVERY NIGHT AT BEDTIME -- TO REPLACE AMLODOPINE 10/20/20162016 Inactive Lipitor 10 mg tablet RxNorm: 083707 TAKE ONE TABLET BY MOUTH EVERY NIGHT AT BEDTIME 10/20/2016 01/17/2017 Inactive alprazolam 0.5 mg tablet RxNorm: 369241 3 Tablet(s) PO QHS as needed for sleep/anxiety 09/20/2016 10/31/2016 Inactive Tamiflu 75 mg capsule RxNorm: 387409 1 Capsule(s) PO QD 09/19/2016 Inactive Lyrica 75 mg capsule RxNorm: 013767 1 Capsule(s) PO QHS 09/19/2016 Inactive prednisone 20 mg tablet RxNorm: 605252 1 Tablet(s) PO QD 08/10/2016 1 10/17/2015 Inactive doxycycline hyclate 100 mg capsule RxNorm: 2560063 1 Capsule(s) PO BID 08/10/2016 08/19/2016 Inactive Medrol (Dustin) 4 mg tablets in a dose pack RxNorm: 792423 Tablet(s) PO As Directed 07/31/2016 08/22/2016 Inactive Singulair 10 mg tablet RxNorm: 322145 TAKE ONE TABLET BY MOUTH JOSÉ Y 07/27/2016 07/18/2017 Inactive hydrocodone 10 mg-acetaminophen 325 mg tablet RxNorm: 713668 1-2 Tablet(s) QID as needed for pain MUST LAST 30 DAYS 07/26/2016 08/24/2016 Inactive (Response to an electronic controlled substance refill request - RxReferenceNumber: [id number]) alprazolam 0.5 mg tablet RxNorm: 515674 3 Tablet(s) PO QHS as needed for anxiety or sleep 07/26/2016 09/20/2016 Inactive clindamycin 300 mg capsule RxNorm: 732310 1 Capsule(s) PO TID 07/2007/29/2016 Inactive Diflucan 100 mg tablet RxNorm: 145228 1 Tablet(s) PO QD 07/20/2016 Inactive Levaquin 500 mg tablet RxNorm: 055184 1 Tablet(s) PO QD 07/17/2016 Inactive Levaquin 500 mg tablet RxNorm: 238153 1 Tablet(s) PO QD 07/10/2016 Inactive Levaquin 500 mg tablet RxNorm: 597434 1 Tablet(s) PO QD 07/10/2016 Inactive mupirocin 2 % topical ointment RxNorm: 662227 TOP Apply topically to affected areas twice daily 07/06/2016 09/18/2016 Inactive Singulair 10 mg tablet RxNorm: 624584 TAKE ONE TABLET BY MOUTH JOSÉ Y 06/21/2016 01/21/2019 Inactive alprazolam 0.5 mg tablet RxNorm: 526797 TAKE THREE TABL ETS BY MOUTH AT BEDTIME NEEDED FOR SLEEP OR STRESS 05/22/2016 06/20/2016 Inactive triamterene 75 mg-hydrochlorothiazide 50 mg tablet RxNorm: 3 21097 1 Tablet(s) PO QD 04/26/2016 01/12/2020 Inactive Premarin 1.25 mg tablet RxNorm: 515832 1-2 Tablet(s) PO QD 04/26/20 16 03/20/2017 Inactive Klor-Con 8 mEq tablet,extended release RxNorm: 664046 1 Tablet( s) PO BID 04/26/2016 10/19/2016 Inactive Celebrex 200 mg capsule RxNorm: 335188 1 Capsule(s) PO BID TAKE ONE CAPSULE BY MOUTH EVERY DAY 04/26/2016 10/19/2016 Inactive Lipitor 10 mg tablet RxNorm: 341095 1 Tablet(s) PO QHS 04/26/201605/2017 Inactive allopurinol 300 mg tablet RxNorm: 077514 1 Tablet(s) PO QD TAKE ONE TABLET BY MOUTH EVERY DAY 04/26/2016 10/19/2016 Inactive amlodipine 5 mg-benazepril 20 mg capsule RxNorm: 420585 1 Capsule(s) PO QHS replaces amlodopine 04/26/2016 10/19/2016 Inactive duloxetine 60 mg capsule,delayed release RxNorm: 881476 1 Capsu le(s) PO QD 04/26/2016 10/19/2016 Inactive Bystolic 10 mg tablet RxNorm: 470953 1 Tablet(s) PO QHS 04/26/2016 Inactive Singulair 10 mg tablet RxNorm: 003806 1 Tablet(s) PO QD TAKE ONE TABLET BY MOUTH DAILY 04/26/2016 06/20/2016 Inactive clonidine HCl 0.1 mg tablet RxNorm: 083297 1 Tablet(s) PO QID 04/2610/22/2016 Inactive hydrocodone 10 mg-acetaminophen 325 mg tablet RxNorm: 795504 1-2 Tablet(s) QID as needed for pain TAKE ONE TO TWO TABLETS BY MOUTH FOUR TIMES A DAY . MUST LAST 30 DAYS 03/31/2016 04/29/2016 Inactive (Response to an electronic controlled substance refill request - RxReferenceNumber: [id number]) Klor-Con 8 mEq tablet,extended release RxNorm: 370370 T FARRUKH ONE TABLET BY MOUTH TWICE A DAY 03/24/2016 09/29/2019 Inactive prednisone 20 mg tablet RxNorm: 210500 1 Tablet(s) PO QD 03/09/2016 0 03/08/2016 Inactive prednisone 20 mg tablet RxNorm: 563584 1 Tablet(s) PO QD 03/09/2016 0 03/13/2016 Inactive alprazolam 0.5 mg tablet RxNorm: 131511 3 Tablet(s) PO QHS as needed for sleep/stress 03/02/2016 01/21/2019 Inactive mupirocin 2 % topical ointment RxNorm: 916151 TOP twice daily to affected areas of face and neck 02/21/2016 04/25/2016 Inactive clonidine HCl 0.1 mg tablet RxNorm: 792594 TAKE ONE TAB LET BY MOUTH FOUR TIMES A DAY 02/15/2016 09/29/2019 Inactive clonidine HCl 0.1 mg tablet RxNorm: 003209 1 Tablet(s) PO QID 02/1404/25/2016 Inactive Premarin 1.25 mg tablet RxNorm: 381315 1-2 Tablet(s) PO QD 02/15/20 16 03/15/2016 Inactive Klor-Con 8 mEq tablet,extended release RxNorm: 542919 T FARRUKH ONE TABLET BY MOUTH TWICE A DAY 02/15/2016 03/15/2016 Inactive potassium chloride ER 20 mEq tablet,extended release(part/cr yst) RxNorm: 021896 2 Tablet(s) PO BID 02/15/2016 03/15/2016 Inactive Macrobid 100 mg capsule RxNorm: 009841 1 Capsule(s) PO BID 01/24/20 16 01/30/2016 Inactive prednisone 20 mg tablet RxNorm: 639122 Take 3tabs PO QD x 2 days, then 2 tabs PO QD x 2 days, then 1 tab PO QD x 2 days, then 1/2 tab PO QDy x 2 days 12/23/2015 04/25/2016 Inactive Klor-Con 8 mEq tablet,extended release RxNorm: 181613 T FARRUKH ONE TABLET BY MOUTH TWICE A DAY 12/20/2015 02/14/2016 Inactive alprazolam 1 mg tablet RxNorm: 355828 1 1/2 Tablet(s) PO QHS 201501/23/2016 Inactive nystatin 100,000 unit/gram topical cream RxNorm: 043694 APPLY TO AFFECTED AREA(S) TWO TIMES A DAY 11/30/2015 12/14/2015 Inactive Singulair 10 mg tablet RxNorm: 571885 TAKE ONE TABLET BY MOUTH JOSÉ Y 11/18/2015 04/25/2016 Inactive allopurinol 300 mg tablet RxNorm: 695237 1 Tablet(s) PO QD TAKE ONE TABLET BY MOUTH EVERY DAY 10/26/2015 04/22/2016 Inactive Singulair 10 mg tablet RxNorm: 479331 TAKE ONE TABLET BY MOUTH JOSÉ Y 10/26/2015 11/17/2015 Inactive duloxetine 60 mg capsule,delayed release RxNorm: 944329 1 Capsu le(s) PO QD 10/26/2015 04/22/2016 Inactive triamterene 75 mg-hydrochlorothiazide 50 mg tablet RxNorm: 3 34172 1 Tablet(s) PO QD 10/26/2015 11/14/2016 Inactive potassium chloride ER 20 mEq tablet,extended release(part/cr yst) RxNorm: 743723 2 Tablet(s) PO BID 10/26/2015 02/14/2016 Inactive Lipitor 10 mg tablet RxNorm: 631691 1 Tablet(s) PO QHS 10/26/2015 Inactive amlodipine 5 mg-benazepril 20 mg capsule RxNorm: 481420 1 Capsule(s) PO QHS replaces amlodopine 10/26/2015 04/22/2016 Inactive Bystolic 10 mg tablet RxNorm: 846812 1 Tablet(s) PO QHS 10/26/2015 Inactive amlodipine 5 mg-benazepril 20 mg capsule RxNorm: 090908 1 Capsule(s) PO QHS replaces amlodopine 10/06/2015 10/25/2015 Inactive amlodipine 5 mg tablet RxNorm: 972647 1 Tablet(s) PO QHS 09/30/2015 0 04/25/2016 Inactive metolazone 2.5 mg tablet RxNorm: 468069 TAKE ONE TABLET BY MOUTH DAILY NEEDED FOR EDEMA 09/30/2015 01/21/2019 Inactive duloxetine 60 mg capsule,delayed release RxNorm: 571268 1 Capsu le(s) PO QD 09/30/2015 10/25/2015 Inactive cephalexin 500 mg capsule RxNorm: 040441 1 Capsule(s) PO BID 201509/23/2015 Inactive mupirocin 2 % topical ointment RxNorm: 386315 TOP twice daily to affected areas of face and neck 09/14/2015 02/20/2016 Inactive baclofen 20 mg tablet RxNorm: 556370 1 Tablet(s) PO TID as needed for muscle spasm 09/01/2015 11/14/2016 Inactive clonidine HCl 0.1 mg tablet RxNorm: 498595 1 Tablet(s) PO QID 09/0102/14/2016 Inactive alprazolam 1 mg tablet RxNorm: 779539 1 1/2 Tablet(s) PO QHS 201409/09/2015 Inactive baclofen 20 mg tablet RxNorm: 663930 1 Tablet(s) PO TID as needed for muscle spasm 07/23/2015 09/01/2015 Inactive omeprazole 40 mg capsule,delayed release RxNorm: 815676 1 Capsu le(s) PO QD 07/23/2015 04/25/2016 Inactive alprazolam 1 mg tablet RxNorm: 850193 1 1/2 Tablet(s) PO QHS 201408/10/2015 Inactive Bystolic 10 mg tablet RxNorm: 127114 1 Tablet(s) PO BID 06/24/2015 Inactive allopurinol 300 mg tablet RxNorm: 475183 1 Tablet(s) PO QD TAKE ONE TABLET BY MOUTH EVERY DAY 06/23/2015 10/20/2015 Inactive alprazolam 1 mg tablet RxNorm: 869775 1 1/2 Tablet(s) PO QHS 201407/06/2015 Inactive clonidine HCl 0.1 mg tablet RxNorm: 945780 1 Tablet(s) PO QID 06/0209/01/2015 Inactive clonidine HCl 0.1 mg tablet RxNorm: 224463 1 Tablet(s) PO QID 06/0206/01/2015 Inactive Cymbalta 60 mg capsule,delayed release RxNorm: 734611 1 Capsule (s) PO QHS 06/02/2015 08/30/2015 Inactive Cymbalta 60 mg capsule,delayed release RxNorm: 895872 1 Capsule (s) PO QHS 06/02/2015 06/01/2015 Inactive clonidine HCl 0.1 mg tablet RxNorm: 851809 1 Tablet(s) PO TID 05/3106/01/2015 Inactive replaces 0.2mg dose metolazone 2.5 mg tablet RxNorm: 405124 TAKE ONE TABLET BY MOUTH DAILY NEEDED FOR EDEMA 05/21/2015 06/19/2015 Inactive Singulair 10 mg tablet RxNorm: 133267 TAKE ONE TABLET BY MOUTH JOSÉ Y 05/21/2015 10/17/2015 Inactive Cymbalta 30 mg capsule,delayed release RxNorm: 121142 1 Capsule (s) PO QHS 05/20/2015 11/14/2016 Inactive betamethasone valerate 0.1 % topical cream RxNorm: 429281 Appli cation TOP BID 05/10/2015 04/25/2016 Inactive Bactroban 2 % topical ointment RxNorm: 272522 Application TOP BID 0 05/10/2015 06/20/2015 Inactive baclofen 20 mg tablet RxNorm: 381802 1 Tablet(s) PO TID as needed 0 04/26/2015 07/23/2015 Inactive Lipitor 10 mg tablet RxNorm: 343229 1 Tablet(s) PO QHS 04/26/201508/2016 Inactive clonidine HCl 0.1 mg tablet RxNorm: 586478 1 Tablet(s) PO TID 04/2605/30/2015 Inactive replaces 0.2mg dose Klor-Con 8 mEq tablet,extended release RxNorm: 130047 1 Tablet( s) PO BID 04/26/2015 04/25/2016 Inactive metolazone 2.5 mg tablet RxNorm: 385196 1 Tablet(s) PO QD as ne eded for edema 04/26/2015 04/25/2015 Inactive triamterene 75 mg-hydrochlorothiazide 50 mg tablet RxNorm: 3 35877 1 Tablet(s) PO QD 04/26/2015 10/22/2015 Inactive Premarin 1.25 mg tablet RxNorm: 943902 1-2 Tablet(s) PO QD 04/26/20 15 10/22/2015 Inactive Bystolic 10 mg tablet RxNorm: 492127 1 Tablet(s) PO QAM TAKE ONE TABLET BY MOUTH EVERY MORNING 04/23/2015 06/23/2015 Inactive clonidine HCl 0.1 mg tablet RxNorm: 469332 1 Tablet(s) PO TID 03/2304/25/2015 Inactive replaces 0.2mg dose nystatin 100,000 unit/gram topical cream RxNorm: 424504 Applica tion TOP BID 03/23/2015 06/20/2015 Inactive baclofen 20 mg tablet RxNorm: 240888 1 Tablet(s) PO TID as needed 0 03/23/2015 04/25/2015 Inactive Premarin 1.25 mg tablet RxNorm: 495035 1-2 Tablet(s) PO QD 03/23/20 15 04/25/2015 Inactive Klor-Con 8 mEq tablet,extended release RxNorm: 686217 1 Tablet( s) PO BID 03/23/2015 04/25/2015 Inactive cefdinir 300 mg capsule RxNorm: 853700 2 Capsule(s) PO QD 03/16/2015 03/25/2015 Inactive baclofen 20 mg tablet RxNorm: 972148 1 Tablet(s) PO TID as needed 0 03/02/2015 03/22/2015 Inactive allopurinol 300 mg tablet RxNorm: 980217 1 Tablet(s) PO QD TAKE ONE TABLET BY MOUTH EVERY DAY 02/22/2015 05/22/2015 Inactive Klor-Con M20 mEq tablet,extended release RxNorm: 173190 2 Tablet(s) PO BID to use with lasix 02/22/2015 06/20/2015 Inactive clonidine HCl 0.1 mg tablet RxNorm: 889509 1 Tablet(s) PO TID 02/1903/22/2015 Inactive replaces 0.2mg dose Lipitor 10 mg tablet RxNorm: 837770 1 Tablet(s) PO QHS 01/20/201506/2015 Inactive Lipitor 10 mg tablet RxNorm: 591314 1 Tablet(s) PO QHS 01/20/2015 Inactive Singulair 10 mg tablet RxNorm: 706322 1 Tablet(s) PO QD TAKE ONE TABLET BY MOUTH EVERY DAY 11/20/2014 05/18/2015 Inactive Lipitor 10 mg tablet RxNorm: 730887 1 Tablet(s) PO QHS 11/20/201408/2015 Inactive allopurinol 300 mg tablet RxNorm: 702692 1 Tablet(s) PO QD TAKE ONE TABLET BY MOUTH EVERY DAY 11/20/2014 02/16/2015 Inactive Bystolic 10 mg tablet RxNorm: 944059 1 Tablet(s) PO QAM TAKE ONE TABLET BY MOUTH EVERY MORNING 11/20/2014 04/22/2015 Inactive Klor-Con 8 mEq tablet,extended release RxNorm: 578588 1 Tablet( s) PO BID 11/20/2014 02/17/2015 Inactive baclofen 20 mg tablet RxNorm: 890744 1 Tablet(s) PO TID as needed 0 11/20/2014 01/21/2019 Inactive baclofen 20 mg tablet RxNorm: 650083 1 Tablet(s) PO TID as needed 0 10/27/2014 11/19/2014 Inactive baclofen 20 mg tablet RxNorm: 461888 1 Tablet(s) PO TID as needed 0 10/26/2014 03/01/2015 Inactive allopurinol 300 mg tablet RxNorm: 278494 1 Tablet(s) PO QD TAKE ONE TABLET BY MOUTH EVERY DAY 10/26/2014 11/20/2014 Inactive Bystolic 10 mg tablet RxNorm: 378714 1 Tablet(s) PO QAM TAKE ONE TABLET BY MOUTH EVERY MORNING 10/26/2014 11/20/2014 Inactive clonidine HCl 0.1 mg tablet RxNorm: 269862 1 Tablet(s) PO TID 09/2805/27/2019 Inactive replaces 0.2mg dose clonidine HCl 0.1 mg tablet RxNorm: 211182 1 Tablet(s) PO TID 09/2802/18/2015 Inactive replaces 0.2mg dose baclofen 20 mg tablet RxNorm: 872638 1 Tablet(s) PO TID as needed 1 11/01/2013 08/30/2014 Inactive Lipitor 10 mg tablet RxNorm: 970634 1 Tablet(s) PO QHS 08/31/2014 Inactive baclofen 20 mg tablet RxNorm: 903498 1 Tablet(s) PO TID as needed 1 11/01/2013 10/26/2014 Inactive triamterene 75 mg-hydrochlorothiazide 50 mg tablet RxNorm: 3 99473 1 Tablet(s) PO QD 08/31/2014 02/26/2015 Inactive Klor-Con 8 mEq tablet,extended release RxNorm: 054402 1 Tablet( s) PO BID 08/31/2014 11/20/2014 Inactive baclofen 20 mg tablet RxNorm: 449799 1 Tablet(s) PO TID as needed 1 09/30/2013 10/25/2014 Inactive baclofen 20 mg tablet RxNorm: 822484 1 Tablet(s) PO TID as needed 1 09/30/2013 08/31/2014 Inactive omeprazole 40 mg capsule,delayed release RxNorm: 032651 1 Capsu le(s) PO QD 07/21/2014 07/23/2015 Inactive Flonase 50 mcg/actuation nasal spray,suspension RxNorm: 8963 23 1 Dickens NASAL BID 07/15/2014 04/09/2017 Inactive hydrocodone 10 mg-acetaminophen 325 mg tablet RxNorm: 172023 1-2 Tablet(s) QID as needed for pain TAKE ONE TO TWO TABLETS BY MOUTH FOUR TIMES A DAY . MUST LAST 30 DAYS 06/30/2014 07/27/2014 Inactive (Response to an electronic controlled substance refill request - [facility] [id number]) baclofen 20 mg tablet RxNorm: 776428 1 Tablet(s) PO TID as needed 1 07/31/2014 Inactive Singulair 10 mg tablet RxNorm: 087495 1 Tablet(s) PO QD TAKE ONE TABLET BY MOUTH EVERY DAY 05/25/2014 11/20/2014 Inactive Bystolic 10 mg tablet RxNorm: 966395 TAKE ONE TABLET BY MOUTH E VERY MORNING 05/25/2014 09/21/2014 Inactive allopurinol 300 mg tablet RxNorm: 155007 1 Tablet(s) PO QD TAKE ONE TABLET BY MOUTH EVERY DAY 05/25/2014 10/21/2014 Inactive baclofen 20 mg tablet RxNorm: 827858 1 Tablet(s) PO TID as needed 0 05/25/2014 06/29/2014 Inactive allopurinol 300 mg tablet RxNorm: 532602 TAKE ONE TABLET BY LOPEZ TH EVERY DAY 05/25/2014 09/21/2014 Inactive Singulair 10 mg tablet RxNorm: 089609 1 Tablet(s) PO QD TAKE ONE TABLET BY MOUTH EVERY DAY 05/25/2014 05/24/2014 Inactive Bystolic 10 mg tablet RxNorm: 328533 1 Tablet(s) PO QAM TAKE ONE TABLET BY MOUTH EVERY MORNING 05/25/2014 10/21/2014 Inactive metolazone 2.5 mg tablet RxNorm: 771894 1 Tablet(s) PO QD as ne eded for edema 05/18/2014 04/25/2015 Inactive Lasix 40 mg tablet RxNorm: 494045 1 Tablet(s) PO QAM s hould take potassium supplementation with this medication 05/14/2014 05/17/2014 Inactive hydrocodone 10 mg-acetaminophen 325 mg tablet RxNorm: 748158 1-2 Tablet(s) QID as needed for pain TAKE ONE TO TWO TABLETS BY MOUTH FOUR TIMES A DAY . MUST LAST 30 DAYS 05/07/2014 06/05/2014 Inactive (Response to an electronic controlled substance refill request - RxReferenceNumber: [id number]) alprazolam 0.5 mg tablet RxNorm: 178344 TAKE ONE TABLET BY MOUTH TWICE A DAY , MUST LAST 30 DAYS 05/07/2014 05/22/2016 Inactive (Response to a n electronic controlled substance refill request - RxReferenceNumber: [id number]) diclofenac sodium 75 mg tablet,delayed release RxNorm: 18224 6 1 Tablet(s) PO BID for pain 04/24/2014 07/20/2014 Inactive Celebrex 200 mg capsule RxNorm: 148102 TAKE ONE CAPSULE BY MOUT H EVERY DAY 04/24/2014 07/20/2014 Inactive alprazolam 0.5 mg tablet RxNorm: 830304 TAKE ONE TABLET BY MOUTH TWICE A DAY , MUST LAST 30 DAYS 03/24/2014 04/22/2014 Inactive (Response to a n electronic controlled substance refill request - RxReferenceNumber: [id number]) diclofenac sodium 75 mg tablet,delayed release RxNorm: 85512 6 1 Tablet(s) PO BID for pain 03/24/2014 04/24/2014 Inactive clonidine HCl 0.1 mg tablet RxNorm: 332117 1 Tablet(s) PO TID 03/2409/28/2014 Inactive replaces 0.2mg dose Klor-Con 8 mEq tablet,extended release RxNorm: 053164 1 Tablet( s) PO BID 02/26/2014 08/31/2014 Inactive diclofenac sodium 75 mg tablet,delayed release RxNorm: 22221 6 1 Tablet(s) PO BID for pain 02/25/2014 03/24/2014 Inactive hydrocodone 10 mg-acetaminophen 325 mg tablet RxNorm: 592261 1-2 Tablet(s) QID as needed for pain TAKE ONE TO TWO TABLETS BY MOUTH FOUR TIMES A DAY . MUST LAST 30 DAYS 02/25/2014 03/26/2014 Inactive (Response to an electronic controlled substance refill request - RxReferenceNumber: [id number]) alprazolam 0.5 mg tablet RxNorm: 354131 Tablet(s) PO BI D as needed for anxiety TAKE ONE TABLET BY MOUTH TWICE A DAY , MUST LAST 30 DAYS 02/25/2014 Inactive (Response to an electronic controlled [place] bstance refill request - RxReferenceNumber: [id number]) [AttnRPh: Saving apply/adjudicate RxGRP:SG20 RxBIN:[id number] RxPCN: ID#:[id number]] alprazolam 0.5 mg tablet RxNorm: 773696 Tablet(s) TAKE ONE TABLET BY MOUTH TWICE A DAY , MUST LAST 30 DAYS 01/27/2014 02/24/2014 Inactive (Respo nse to an electronic controlled substance refill request - RxReferenceNumber: [id number]) [AttnRPh: Saving apply/adjudicate RxGRP:SG20 RxBIN:[id number] RxPCN: ID#:[id number]] hydrocodone 10 mg-acetaminophen 325 mg tablet RxNorm: 443059 1-2 Tablet(s) QID as needed for pain TAKE ONE TO TWO TABLETS BY MOUTH FOUR TIMES A DAY . MUST LAST 30 DAYS 01/27/2014 02/24/2014 Inactive (Response to an electronic controlled substance refill request - RxReferenceNumber: [id number]) alprazolam 0.5 mg tablet RxNorm: 621348 TAKE ONE TABLET BY MOUTH TWICE A DAY , MUST LAST 30 DAYS 01/27/2014 01/26/2014 Inactive (Response to a n electronic controlled substance refill request - RxReferenceNumber: [id number]) Premarin 1.25 mg tablet RxNorm: 480819 1-2 Tablet(s) PO QD 01/28/20 14 07/25/2014 Inactive alprazolam 0.5 mg tablet RxNorm: 910148 TAKE ONE TABLET BY MOUTH TWICE A DAY , MUST LAST 30 DAYS 01/27/2014 01/27/2014 Inactive (Response to a n electronic controlled substance refill request - RxReferenceNumber: [id number]) hydrocodone 10 mg-acetaminophen 325 mg tablet RxNorm: 344235 TAKE ONE TO TWO TABLETS BY MOUTH FOUR TIMES A DAY . MUST LAST 30 DAYS 01/27/20142013 Inactive (Response to an electronic controlled [place] bstance refill request - RxReferenceNumber: [id number]) Celebrex 200 mg capsule RxNorm: 290320 1 Capsule(s) PO QD TAKE ONE CAPSULE BY MOUTH EVERY DAY 12/29/2013 04/27/2014 Inactive hydrocodone 10 mg-acetaminophen 325 mg tablet RxNorm: 606050 1-2 Tablet(s) PO QID as needed for severe pain 12/29/2013 01/27/2014 Inactive allopurinol 300 mg tablet RxNorm: 416704 1 Tablet(s) PO QD TAKE ONE TABLET BY MOUTH EVERY DAY 12/29/2013 05/24/2014 Inactive alprazolam 0.5 mg tablet RxNorm: 872031 TAKE ONE TABLET BY MOUTH TWICE A DAY , MUST LAST 30 DAYS 12/29/2013 01/27/2014 Inactive (Response to a n electronic controlled substance refill request - RxReferenceNumber: [id number]) Celebrex 200 mg capsule RxNorm: 277691 1 Capsule(s) PO QD TAKE ONE CAPSULE BY MOUTH EVERY DAY 12/29/2013 12/29/2013 Inactive Bystolic 10 mg tablet RxNorm: 270941 1 Tablet(s) PO QAM TAKE ONE TABLET BY MOUTH EVERY MORNING 12/29/2013 05/24/2014 Inactive Bystolic 10 mg tablet RxNorm: 101499 1 Tablet(s) PO QAM TAKE ONE TABLET BY MOUTH EVERY MORNING 12/29/2013 12/29/2013 Inactive Singulair 10 mg tablet RxNorm: 212674 1 Tablet(s) PO QD TAKE ONE TABLET BY MOUTH EVERY DAY 12/29/2013 05/25/2014 Inactive hydrocodone 10 mg-acetaminophen 325 mg tablet RxNorm: 439880 TAKE ONE TO TWO TABLETS BY MOUTH FOUR TIMES A DAY . MUST LAST 30 DAYS 12/29/20132013 Inactive (Response to an electronic controlled [place] bstance refill request - RxReferenceNumber: [id number]) Trazadone 75mg Tablet RxNorm: 1 Tablet(s) PO QHS as needed 03/23/2014 Inactive Trazadone 75mg Tablet RxNorm: 1 Tablet(s) PO QHS 12/24/20132014 Inactive Soma 350 mg tablet RxNorm: 023039 Tablet(s) PO TAKE ON E TABLET BY MOUTH THREE TIMES A DAY NEEDED FOR MUSCLE SPASMS. THIS MUST LAST 30 DAYS BETWEEN REFILLS. 12/10/2013 12/22/2013 Inactive (Appended: Cont rolled substance eRx refill - RxReferenceNumber: [id number]) diclofenac sodium 75 mg tablet,delayed release RxNorm: 08497 6 1 Tablet(s) PO BID for pain 12/10/2013 02/24/2014 Inactive allopurinol 300 mg tablet RxNorm: 868851 1 Tablet(s) PO QD 11/20/19 14 12/29/2013 Inactive alprazolam 0.5 mg tablet RxNorm: 081954 2 Tablet(s) PO BID 11/13/19 14 12/29/2013 Inactive prn clonidine 0.1 mg tablet RxNorm: 143659 1 Tablet(s) PO TID 11/12/2013 02/09/2014 Inactive replaces 0.2mg dose Klor-Con M20 mEq tablet,extended release RxNorm: 954719 2 Tablet(s) PO BID to use with lasix 11/12/2013 05/10/2014 Inactive Singulair 10 mg tablet RxNorm: 324233 1 Tablet(s) PO QD 11/12/2013 Inactive hydrocodone 10 mg-acetaminophen 325 mg tablet RxNorm: 834175 1-2 Tablet(s) PO QID as needed for severe pain 11/12/2013 12/28/2013 Inactive Bystolic 10 mg tablet RxNorm: 662805 1 Tablet(s) PO QAM 11/12/2013 Inactive Soma 350 mg tablet RxNorm: 127793 Tablet(s) PO TAKE ON E TABLET BY MOUTH THREE TIMES A DAY NEEDED FOR MUSCLE SPASMS. THIS MUST LAST 30 DAYS BETWEEN REFILLS. 10/13/2013 12/10/2013 Inactive (Appended: Cont rolled substance eRx refill - RxReferenceNumber: [id number]) hydrocodone 10 mg-acetaminophen 325 mg tablet RxNorm: 062964 1-2 Tablet(s) PO QID as needed for severe pain 10/03/2013 11/11/2013 Inactive diclofenac sodium 75 mg tablet,delayed release RxNorm: 93421 8 1 Tablet(s) PO BID for pain 09/11/2013 12/10/2013 Inactive alprazolam 0.5 mg tablet RxNorm: 413825 1 Tablet(s) PO BID May refill on 8/17/13 09/01/2013 10/30/2013 Inactive prn hydrocodone 10 mg-acetaminophen 325 mg tablet RxNorm: 079797 1-2 Tablet(s) PO QID as needed for severe pain 09/01/2013 10/02/2013 Inactive triamterene 75 mg-hydrochlorothiazide 50 mg tablet RxNorm: 3 65985 1 Tablet(s) PO QD 08/04/2013 08/31/2014 Inactive cyclobenzaprine 10 mg tablet RxNorm: 370966 1 Tablet(s) PO TID prn spasm 08/04/2013 08/13/2013 Inactive clonidine 0.1 mg tablet RxNorm: 105296 1 Tablet(s) PO TID 08/04/2013 11/11/2013 Inactive replaces 0.2mg dose cyclobenzaprine 10 mg tablet RxNorm: 118968 1 Tablet(s) PO TID prn spasm 07/23/2013 08/01/2013 Inactive hydrocodone 10 mg-acetaminophen 325 mg tablet RxNorm: 945270 2 1-2 Tablet(s) PO QID as needed for severe pain 06/09/2013 08/07/2013 Inactive Singulair 10 mg tablet RxNorm: 567409 1 Tablet(s) PO QD 05/29/2013 Inactive Klor-Con 8 mEq tablet,extended release RxNorm: 129703 1 Tablet( s) PO BID 05/29/2013 02/26/2014 Inactive allopurinol 300 mg tablet RxNorm: 133316 1 Tablet(s) PO QD 05/29/20 13 11/19/2013 Inactive Bystolic 10 mg tablet RxNorm: 608761 1 Tablet(s) PO QAM take one daily in the morning. 05/29/2013 11/11/2013 Inactive scopolamine 1.5 mg 72 hr Transderm Patch RxNorm: 715588 Application TD Q72H for motion sickness 05/26/2013 07/22/2013 Inactive Soma 350 mg tablet RxNorm: 870233 1 Tablet(s) PO TID as needed for spasm 05/19/2013 10/13/2013 Inactive diclofenac sodium 75 mg tablet,delayed release RxNorm: 68666 8 1 Tablet(s) PO BID for pain 05/14/2013 07/22/2013 Inactive allopurinol 300 mg tablet RxNorm: 517744 1 Tablet(s) PO QD 04/25/20 13 05/28/2013 Inactive alprazolam 0.5 mg tablet RxNorm: 820550 1 Tablet(s) PO BID May refill on 04/26/13 04/25/2013 06/23/2013 Inactive prn Celebrex 200 mg capsule RxNorm: 910482 1 Capsule(s) PO QD 04/16/2013 12/29/2013 Inactive alprazolam 0.5 mg tablet RxNorm: 126428 1 Tablet(s) PO BID May refill on 04/26/13 04/16/2013 04/24/2013 Inactive prn Soma 350 mg tablet RxNorm: 624176 1 Tablet(s) PO TID as needed for spasm 04/16/2013 No Stop Date Active Lasix 40 mg tablet RxNorm: 586535 1 Tablet(s) PO QAM s hould take potassium supplementation with this medication 04/16/2013 06/14/2013 Inactive clonidine 0.1 mg tablet RxNorm: 182206 1 Tablet(s) PO TID 04/16/2013 08/03/2013 Inactive replaces 0.2mg dose prednisone 20 mg tablet RxNorm: 676587 1 Tablet(s) PO BID 04/16/2013 04/20/2013 Inactive diclofenac sodium 75 mg tablet,delayed release RxNorm: 63801 8 1 Tablet(s) PO BID for pain 04/14/2013 05/13/2013 Inactive hydrocodone 10 mg-acetaminophen 325 mg tablet RxNorm: 592320 2 1-2 Tablet(s) PO QID as needed for severe pain 04/14/2013 No Stop Date Active Lasix 40 mg tablet RxNorm: 253336 1 Tablet(s) PO QAM s hould take potassium supplementation with this medication 03/31/2013 04/15/2013 Inactive Celebrex 200 mg capsule RxNorm: 726494 1 Capsule(s) PO QD 03/31/2013 04/15/2013 Inactive alprazolam 0.5 mg tablet RxNorm: 108208 1 Tablet(s) PO BID 03/28/20 13 04/15/2013 Inactive prn hydrocodone 10 mg-acetaminophen 325 mg tablet RxNorm: 004895 2 1-2 Tablet(s) PO QID as needed for severe pain 03/10/2013 No Stop Date Active metformin ER 500 mg 24 hr tablet,extended release RxNorm: 86 1018 1 Tablet(s) PO QD 03/06/2013 07/22/2013 Inactive clindamycin 300 mg capsule RxNorm: 375843 2 Capsule(s) PO TID 03/0503/14/2013 Inactive Zaroxolyn 2.5 mg tablet RxNorm: 994130 1 Tablet(s) PO QAM 03/05/2013 05/19/2015 Inactive amlodipine 10 mg tablet RxNorm: 555089 1 Tablet(s) PO QD 03/03/2013 0 05/25/2013 Inactive Norvasc 10 mg tablet RxNorm: 583671 1 Tablet(s) PO QD 02/28/201307/11 Inactive Celebrex 200 mg capsule RxNorm: 252154 1 Capsule(s) PO QD 02/28/2013 03/30/2013 Inactive diclofenac sodium 75 mg tablet,delayed release RxNorm: 52344 8 1 Tablet(s) PO BID for pain 02/14/2013 03/15/2013 Inactive Soma 350 mg tablet RxNorm: 204417 1 Tablet(s) PO TID as needed for spasm 02/14/2013 No Stop Date Active hydrocodone 10 mg-acetaminophen 325 mg tablet RxNorm: 082432 2 1-2 Tablet(s) PO QID as needed for severe pain 02/14/2013 No Stop Date Active Norvasc 10 mg tablet RxNorm: 414138 1 Tablet(s) PO QD 02/10/201302/09 Inactive Celebrex 200 mg capsule RxNorm: 533903 1 Capsule(s) PO QD 01/27/2013 01/26/2013 Inactive Premarin 1.25 mg tablet RxNorm: 468301 1-2 Tablet(s) PO QD 01/28/20 13 06/25/2013 Inactive alprazolam 0.5 mg tablet RxNorm: 669901 1 Tablet(s) PO BID 01/28/20 13 02/25/2013 Inactive prn amlodipine 5 mg tablet RxNorm: 387207 1 Tablet(s) PO QD 01/27/2013 Inactive Celebrex 200 mg capsule RxNorm: 078880 1 Capsule(s) PO QD 01/27/2013 02/27/2013 Inactive gabapentin 600 mg tablet RxNorm: 240899 1 Tablet(s) PO QHS 01/16/20 13 07/22/2013 Inactive Soma 350 mg tablet RxNorm: 893239 1 Tablet(s) PO TID as needed for spasm 01/15/2013 No Stop Date Active hydrocodone 10 mg-acetaminophen 325 mg tablet RxNorm: 188210 2 1-2 Tablet(s) PO QID as needed for severe pain 01/15/2013 No Stop Date Active Soma 350 mg tablet RxNorm: 973763 1 Tablet(s) PO TID as needed for spasm 01/13/2013 No Stop Date Active alprazolam 0.5 mg tablet RxNorm: 222543 1 Tablet(s) PO BID 12/31/19 13 01/26/2013 Inactive prn diclofenac sodium 75 mg tablet,delayed release RxNorm: 88083 8 1 Tablet(s) PO BID for pain 12/09/2012 01/07/2013 Inactive gabapentin 600 mg tablet RxNorm: 992958 1 Tablet(s) PO QHS 12/10/19 13 01/07/2013 Inactive hydrocodone 10 mg-acetaminophen 325 mg tablet RxNorm: 205181 2 1-2 Tablet(s) PO QID as needed for severe pain 12/02/2012 No Stop Date Active Levaquin 750 mg tablet RxNorm: 278314 1 Tablet(s) PO QD 11/21/2012 Inactive Singulair 10 mg tablet RxNorm: 456058 1 Tablet(s) PO QD 11/11/2012 Inactive clonidine 0.2 mg tablet RxNorm: 962310 1 Tablet(s) PO TID 11/11/2012 04/15/2013 Inactive alprazolam 0.5 mg tablet RxNorm: 171682 1 Tablet(s) PO BID 11/12/19 13 12/10/2012 Inactive prn Klor-Con 8 mEq tablet,extended release RxNorm: 904009 1 Tablet( s) PO BID 11/11/2012 03/04/2013 Inactive hydrocodone 10 mg-acetaminophen 325 mg tablet RxNorm: 637717 2 1-2 Tablet(s) PO QID as needed for severe pain 11/06/2012 No Stop Date Active alprazolam 0.5 mg tablet RxNorm: 737191 1 Tablet(s) PO BID 10/15/19 13 11/10/2012 Inactive prn hydrocodone-acetaminophen 10 mg-325 mg tablet RxNorm: 467863 2 1-2 Tablet(s) PO QID as needed for severe pain 10/10/2012 10/09/2012 Inactive allopurinol 300 mg tablet RxNorm: 698784 1 Tablet(s) PO QD 09/20/19 13 12/18/2012 Inactive alprazolam 0.5 mg tablet RxNorm: 047128 1 Tablet(s) PO BID 09/17/19 13 10/14/2012 Inactive prn hydrocodone-acetaminophen 10 mg-325 mg tablet RxNorm: 578687 2 1-2 Tablet(s) PO QID as needed for severe pain 08/22/2012 08/21/2012 Inactive Norvasc 10 mg tablet RxNorm: 979881 1 Tablet(s) PO QD 08/12/201201/10 Inactive Premarin 1.25 mg tablet RxNorm: 062716 1-2 Tablet(s) PO QD 07/30/20 12 12/26/2012 Inactive alprazolam 0.5 mg tablet RxNorm: 199919 1 Tablet(s) PO BID 07/29/20 12 08/27/2012 Inactive prn Klor-Con 8 mEq tablet,extended release RxNorm: 518188 1 Tablet( s) PO BID 07/29/2012 11/10/2012 Inactive hydrocodone-acetaminophen 10 mg-325 mg tablet RxNorm: 785654 2 1-2 Tablet(s) PO QID as needed for severe pain 07/29/2012 No Stop Date Active Premarin 1.25 mg tablet RxNorm: 630617 1-2 Tablet(s) PO QD 07/29/20 12 07/29/2012 Inactive clonidine 0.2 mg tablet RxNorm: 685683 1 Tablet(s) PO TID 07/29/2012 10/28/2012 Inactive ketorolac 10 mg tablet RxNorm: 214087 1 Tablet(s) PO QID prn he adache 07/18/2012 No Stop Date Active hydrocodone-acetaminophen 10 mg-325 mg tablet RxNorm: 491721 2 1-2 Tablet(s) PO QID as needed for severe pain 07/03/2012 No Stop Date Active amlodipine 5 mg tablet RxNorm: 924857 1 Tablet(s) PO QD 07/02/2012 Inactive allopurinol 300 mg tablet RxNorm: 145776 1 Tablet(s) PO QD 07/02/20 12 09/19/2012 Inactive Celebrex 200 mg capsule RxNorm: 501431 1 Capsule(s) PO QD for j oint pain 06/26/2012 10/23/2012 Inactive diclofenac sodium 75 mg tablet,delayed release RxNorm: 69159 8 1 Tablet(s) PO BID for pain 06/19/2012 09/16/2012 Inactive hydrocodone-acetaminophen 10 mg-325 mg tablet RxNorm: 772198 2 1-2 Tablet(s) PO QID as needed for severe pain 06/10/2012 No Stop Date Active alprazolam 0.5 mg tablet RxNorm: 177818 1 Tablet(s) PO BID 06/03/20 12 07/02/2012 Inactive prn ketorolac 10 mg tablet RxNorm: 351026 1 Tablet(s) PO Q8H 05/27/2012 0 01/21/2019 Inactive as needed for headache hydrocodone-acetaminophen 10 mg-325 mg tablet RxNorm: 061857 2 1-2 Tablet(s) PO QID as needed for severe pain 05/15/2012 No Stop Date Active allopurinol 300 mg tablet RxNorm: 468758 1 Tablet(s) PO QD 05/14/20 12 06/12/2012 Inactive allopurinol 300 mg tablet RxNorm: 613121 1 Tablet(s) PO QD 05/14/20 12 05/13/2012 Inactive amlodipine 5 mg tablet RxNorm: 319218 1 Tablet(s) PO QD 05/01/2012 Inactive amlodipine 5 mg Tab RxNorm: 739200 1 Tablet(s) PO QD 05/01/201204/30 Inactive Celebrex 200 mg capsule RxNorm: 520988 1 Capsule(s) PO QD for j oint pain 05/01/2012 06/25/2012 Inactive Singulair 10 mg tablet RxNorm: 145606 1 Tablet(s) PO QD 05/01/2012 Inactive alprazolam 0.5 mg tablet RxNorm: 169394 1 Tablet(s) PO BID 05/01/20 12 05/30/2012 Inactive prn Celebrex 200 mg Cap RxNorm: 776542 1 Capsule(s) PO QD for joint radu n 05/01/2012 04/30/2012 Inactive hydrocodone-acetaminophen 10 mg-325 mg tablet RxNorm: 281687 2 1-2 Tablet(s) PO QID as needed for severe pain 04/19/2012 No Stop Date Active Lasix 40 mg tablet RxNorm: 010297 1 Tablet(s) PO QAM s hould take potassium supplementation with this medication 04/05/2012 06/03/2012 Inactive alprazolam 0.5 mg Tab RxNorm: 115653 1 Tablet(s) PO BID 04/05/2012 Inactive prn hydrocodone-acetaminophen 10 mg-325 mg Tab RxNorm: 9461539 1-2 Tablet(s) PO QID as needed for severe pain 03/25/2012 03/24/2012 Inactive clonidine 0.2 mg Tab RxNorm: 800425 1 Tablet(s) PO TID 03/08/2012 Inactive alprazolam 0.5 mg Tab RxNorm: 152302 1 Tablet(s) PO BID 03/08/2012 Inactive prn Soma 350 mg tablet RxNorm: 935264 1 Tablet(s) PO TID for spasm 02/0903/18/2012 Inactive clonidine 0.2 mg tablet RxNorm: 021731 1 Tablet(s) PO TID 03/08/2012 07/28/2012 Inactive Celebrex 200 mg Cap RxNorm: 582657 1 Capsule(s) PO QD for joint radu n 03/01/2012 04/29/2012 Inactive amlodipine 5 mg Tab RxNorm: 271122 1 Tablet(s) PO QD 02/26/201202/24 Inactive amlodipine 5 mg Tab RxNorm: 194457 1 Tablet(s) PO QD 02/26/201204/25 Inactive Bactroban 2 % Ointment RxNorm: 799685 Application TOP QID to sores 02/23/2012 No Stop Date Active amlodipine 2.5 mg tablet RxNorm: 224436 1 Tablet(s) PO QHS 02/20/20 12 02/25/2012 Inactive doxycycline hyclate 100 mg Cap RxNorm: 3997628 1 Capsule(s) PO BID 02/20/2012 02/29/2012 Inactive hydrocodone-acetaminophen 10 mg-325 mg Tab RxNorm: 6965883 1-2 T ablet(s) PO QID 02/08/2012 No Stop Date Active alprazolam 0.5 mg Tab RxNorm: 205943 1 Tablet(s) PO BID 02/08/2012 Inactive prn Singulair 10 mg Tab RxNorm: 765509 1 Tablet(s) PO QD 02/08/201204/30 Inactive Soma 350 mg Tab RxNorm: 633960 1 Tablet(s) PO TID for spasm 012 03/07/2012 Inactive Soma 350 mg Tab RxNorm: 345101 1 Tablet(s) PO TID for spasm 02/05/2012 Inactive diclofenac sodium 75 mg tablet,delayed release RxNorm: 53279 8 1 Tablet(s) PO BID for pain 02/01/2012 03/18/2012 Inactive Celebrex 200 mg Cap RxNorm: 433440 1 Capsule(s) PO QD for joint radu n 01/30/2012 02/28/2012 Inactive Lasix 40 mg Tab RxNorm: 043135 1 Tablet(s) PO QAM 01/24/2012 03/18/20 12 Inactive potassium chloride ER 20 mEq tablet,extended release(part/cr yst) RxNorm: 710329 2 Tablet(s) PO BID 01/24/2012 02/22/2012 Inactive alprazolam 0.5 mg Tab RxNorm: 962798 1 Tablet(s) PO BID 01/11/2012 Inactive prn hydrocodone-acetaminophen 10 mg-325 mg Tab RxNorm: 8308295 1-2 T ablet(s) PO QID 01/11/2012 No Stop Date Active Ambien 10 mg Tab RxNorm: 261794 1 Tablet(s) PO QHS 01/11/2012 012 Inactive Klor-Con 8 mEq Tab RxNorm: 252690 1 Tablet(s) PO BID 01/11/201201/22 Inactive diclofenac sodium 75 mg Tab, Delayed Release RxNorm: 061491 1 Tablet(s) PO BID for pain 01/10/2012 01/31/2012 Inactive Ambien 10 mg Tab RxNorm: 411294 1 Tablet(s) PO QHS 12/11/2011 012 Inactive alprazolam 0.5 mg Tab RxNorm: 096745 1 Tablet(s) PO BID 12/11/2011 Inactive prn hydrocodone 10 mg-acetaminophen 325 mg tablet RxNorm: 503134 1-2 Tablet(s) PO TID 11/28/2011 No Stop Date Active as needed for pa in - Previous quantity #240, will start dosing for #180 in April 2011 per Doctor Td. Ambien 10 mg Tab RxNorm: 393301 1 Tablet(s) PO QHS 11/09/2011 012 Inactive alprazolam 0.5 mg Tab RxNorm: 518115 1 Tablet(s) PO BID 11/09/2011 Inactive prn hydrocodone-acetaminophen 10 mg-325 mg Tab RxNorm: 6669475 1-2 T ablet(s) PO TID 11/06/2011 No Stop Date Active as needed for pain - Previous quantity #240, will start dosing for #180 in April 2011 per Doctor Td. Singulair 10 mg Tab RxNorm: 886651 1 Tablet(s) PO QD 10/13/201110/12 Inactive Singulair 10 mg Tab RxNorm: 057488 1 Tablet(s) PO QD 10/13/201102/06 Inactive hydrocodone-acetaminophen 10 mg-325 mg Tab RxNorm: 3424404 1-2 T ablet(s) PO TID 10/10/2011 10/09/2011 Inactive as needed for pain - Previous quantity #240, will start dosing for #180 in April 2011 per Doctor Td. hydrocodone-acetaminophen 10 mg-325 mg Tab RxNorm: 8605071 1-2 T ablet(s) PO TID 10/09/2011 No Stop Date Active as needed for pain - Previous quantity #240, will start dosing for #180 in April 2011 per Doctor Td. Klor-Con 8 mEq Tab RxNorm: 353066 1 Tablet(s) PO BID 10/02/201101/09 Inactive triamterene 75 mg-hydrochlorothiazide 50 mg tablet RxNorm: 3 32559 1 Tablet(s) PO QD 09/14/2011 03/06/2013 Inactive Ambien 10 mg Tab RxNorm: 078104 1 Tablet(s) PO QHS 09/14/2011 012 Inactive hydrocodone-acetaminophen 10 mg-325 mg Tab RxNorm: 9899377 1-2 T ablet(s) PO TID 09/14/2011 No Stop Date Active as needed for pain - Previous quantity #240, will start dosing for #180 in April 2011 per Doctor Td. alprazolam 0.5 mg Tab RxNorm: 994641 1 Tablet(s) PO BID 09/14/2011 Inactive prn Zithromax 500 mg Tab RxNorm: 302877 1 Tablet(s) PO QD 09/13/201109/10 Inactive prednisone 20 mg Tab RxNorm: 119064 1 Tablet(s) PO BID 08/31/2011 Inactive Ambien 10 mg Tab RxNorm: 818503 1 Tablet(s) PO QHS 08/17/2011 011 Inactive hydrocodone-acetaminophen 10 mg-325 mg Tab RxNorm: 0510867 1-2 T ablet(s) PO TID 08/17/2011 No Stop Date Active as needed for pain - Previous quantity #240, will start dosing for #180 in April 2011 per Doctor Td. clonidine 0.2 mg Tab RxNorm: 024323 1 Tablet(s) PO TID 08/17/201112/2011 Inactive Ambien 10 mg Tab RxNorm: 455170 1 Tablet(s) PO QHS 08/17/2011 019 Inactive alprazolam 0.5 mg Tab RxNorm: 150780 1 Tablet(s) PO BID 08/17/2011 Inactive prn hydrocodone-acetaminophen 10 mg-325 mg Tab RxNorm: 3596160 1-2 T ablet(s) PO TID 08/17/2011 08/16/2011 Inactive as needed for pain - Previous quantity #240, will start dosing for #180 in April 2011 per Doctor Td. Singulair 10 mg Tab RxNorm: 723180 1 Tablet(s) PO QD 08/17/201108/16 Inactive Klor-Con 8 mEq Tab RxNorm: 075158 1 Tablet(s) PO QD 08/17/20112011 Inactive alprazolam 0.5 mg Tab RxNorm: 619978 1 Tablet(s) PO BID 07/20/2011 Inactive prn Ambien 10 mg Tab RxNorm: 164173 1 Tablet(s) PO QHS 07/20/2011 012 Inactive Singulair 10 mg Tab RxNorm: 188928 1 Tablet(s) PO QD 07/20/201107/19 Inactive Premarin 1.25 mg tablet RxNorm: 225025 2 Tablet(s) PO QD 07/20/2011 0 01/21/2019 Inactive Premarin 1.25 mg tablet RxNorm: 836624 1-2 Tablet(s) PO QD 07/20/20 11 12/16/2011 Inactive Premarin 1.25 mg Tab RxNorm: 284121 1-2 Tablet(s) PO QD 07/06/2011 Inactive alprazolam 0.5 mg Tab RxNorm: 329825 1 Tablet(s) PO BID 06/22/2011 Inactive prn alprazolam 0.5 mg Tab RxNorm: 028917 1 Tablet(s) PO BID 06/22/2011 Inactive prn Premarin 1.25 mg Tab RxNorm: 488471 1 Tablet(s) PO QD m ay do 90 day fill if desired 06/22/2011 07/05/2011 Inactive hydrocodone-acetaminophen 10 mg-325 mg Tab RxNorm: 0035435 1-2 T ablet(s) PO TID 06/22/2011 No Stop Date Active as needed for pain - Previous quantity #240, will start dosing for #180 in April 2011 per Doctor Td. clonidine 0.2 mg Tab RxNorm: 885692 1 Tablet(s) PO TID 05/25/201103/2011 Inactive triamterene-hydrochlorothiazide 75 mg-50 mg Tab RxNorm: 3108 18 1 Tablet(s) PO QD 05/25/2011 09/13/2011 Inactive alprazolam 0.5 mg Tab RxNorm: 360644 1 Tablet(s) PO BID 05/25/2011 Inactive prn hydrocodone-acetaminophen 10 mg-325 mg Tab RxNorm: 6013502 1-2 T ablet(s) PO TID 05/25/2011 No Stop Date Active as needed for pain - Previous quantity #240, will start dosing for #180 in April 2011 per Doctor Td. Robaxin-750 750 mg Tab RxNorm: 237676 2 Tablet(s) PO QHS 05/22/2011 1 Inactive prn spasm hydrocodone-acetaminophen 10 mg-325 mg Tab RxNorm: 6381236 1-2 T ablet(s) PO TID 04/26/2011 No Stop Date Active as needed for pain - Previous quantity #240, will start dosing for #180 in April 2011 per Doctor Td. alprazolam 0.5 mg Tab RxNorm: 947159 1 Tablet(s) PO BID 04/25/2011 Inactive prn Klor-Con 8 mEq Tab RxNorm: 290775 1 Tablet(s) PO QD 03/30/20112010 Inactive Klor-Con 8 mEq Tab RxNorm: 833773 1 Tablet(s) PO QD 03/29/20112010 Inactive hydrocodone-acetaminophen 10 mg-325 mg Tab RxNorm: 3685265 1-2 T ablet(s) PO TID 03/20/2011 04/25/2011 Inactive as needed for pain - Previous quantity #240, will start dosing for #180 in April 2011 per Doctor Td. alprazolam 0.5 mg Tab RxNorm: 002503 1 Tablet(s) PO BID prn 011 03/30/2011 Inactive Ambien 10 mg Tab RxNorm: 060809 1 Tablet(s) PO QHS 03/01/2011 011 Inactive cyclobenzaprine 10 mg Tab RxNorm: 853399 1 Tablet(s) PO TID 011 03/18/2012 Inactive cyclobenzaprine 10 mg Tab RxNorm: 443493 1 Tablet(s) PO TID 011 01/08/2011 Inactive cyclobenzaprine 10 mg Tab RxNorm: 394972 1 Tablet(s) PO TID 011 12/20/2010 Inactive terbinafine 250 mg Tab RxNorm: 996839 1 Tablet(s) PO QD 12/12/2010 Inactive triamterene-hydrochlorothiazide 75 mg-50 mg Tab RxNorm: 3108 18 1 Tablet(s) PO QD 12/07/2010 01/12/2020 Inactive Klor-Con 8 8 mEq Tab RxNorm: 522611 1 Tablet(s) PO QD 12/07/201001/08 Inactive Premarin 1.25 mg Tab RxNorm: 980090 2 Tablet(s) PO QD 12/07/201001/08 Inactive clonidine 0.2 mg Tab RxNorm: 627553 1 Tablet(s) PO TID 12/07/2010 Inactive hydrocodone-acetaminophen 7.5 mg-650 mg Tab RxNorm: 260195 1 Ta blet(s) PO Q4H 12/05/2010 01/21/2019 Inactive hydrocodone-acetaminophen 7.5 mg-650 mg Tab RxNorm: 698040 1 Ta blet(s) PO Q4H 10/26/2010 11/14/2010 Inactive hydrocodone-acetaminophen 7.5 mg-650 mg Tab RxNorm: 392073 1 Ta blet(s) PO Q4H 10/13/2010 10/25/2010 Inactive hydrocodone-acetaminophen 7.5 mg-650 mg Tab RxNorm: 012002 1 Ta blet(s) PO Q4H 09/15/2010 09/12/2010 Inactive alprazolam 0.5 mg Tab RxNorm: 363353 1 Tablet(s) PO BID prn 011 09/12/2010 Inactive terbinafine 250 mg Tab RxNorm: 059666 1 Tablet(s) PO QD 09/05/2010 Inactive hydrocodone-acetaminophen 7.5 mg-650 mg Tab RxNorm: 773404 1 Ta blet(s) PO Q4H 08/29/2010 09/17/2010 Inactive alprazolam 0.5 mg Tab RxNorm: 141866 1 Tablet(s) PO BID prn 010 09/27/2010 Inactive alprazolam 0.5 mg Tab RxNorm: 196758 1 Tablet(s) PO BID prn 010 09/06/2010 Inactive Klor-Con 8 mEq Tab RxNorm: 270100 1 Tablet(s) PO QD 08/08/20102010 Inactive hydrocodone-acetaminophen 7.5 mg-650 mg Tab RxNorm: 521857 1 Ta blet(s) PO Q4H 08/08/2010 08/27/2010 Inactive Ambien 10 mg Tab RxNorm: 678159 1 Tablet(s) PO QHS 08/08/2010 Inactive clonidine 0.2 mg Tab RxNorm: 848407 1 Tablet(s) PO TID 08/08/2010 Inactive Premarin 1.25 mg Tab RxNorm: 794794 2 Tablet(s) PO QD 08/08/201009/12 Inactive Ambien 10 mg Tab RxNorm: 019988 1 Tablet(s) PO QHS 07/18/2010 Inactive alprazolam 0.5 mg Tab RxNorm: 268570 1 Tablet(s) PO BID prn 010 08/07/2010 Inactive hydrocodone-acetaminophen 7.5 mg-650 mg Tab RxNorm: 893521 1 Ta blet(s) PO Q4H 07/12/2010 07/31/2010 Inactive clonidine 0.2 mg Tab RxNorm: 933257 1 Tablet(s) PO TID 06/20/2010 Inactive terbinafine 250 mg Tab RxNorm: 953261 1 Tablet(s) PO QD 05/24/2010 Inactive Clonidine 0.2 mg Tab RxNorm: 954801 1 Tablet(s) PO TID 05/24/201006/2010 Inactive Ambien 10 mg Tab RxNorm: 713602 1 Tablet(s) PO QHS 05/24/2010 010 Inactive alprazolam 0.5 mg Tab RxNorm: 799229 1 Tablet(s) PO BID 05/24/2010 Inactive Klor-Con 8 mEq Tab RxNorm: 031217 1 Tablet(s) PO QD 05/24/20102009 Inactive alprazolam 0.5 mg Tab RxNorm: 502113 2 Tablet(s) PO QD prn 05/24/20 10 07/17/2010 Inactive triamterene-hydrochlorothiazide 75 mg-50 mg Tab RxNorm: 3108 18 1 Tablet(s) PO QD 05/24/2010 11/19/2010 Inactive Ambien 10 mg Tab RxNorm: 210422 1 Tablet(s) PO QHS 05/23/2010 010 Inactive Alprazolam 0.5 mg Tab RxNorm: 590004 2 Tablet(s) PO QD prn 05/23/2005/23/2010 Inactive Premarin 1.25 mg Tab RxNorm: 880006 2 Tablet(s) PO QD 05/19/201007/12 Inactive Hydrocodone-Acetaminophen 7.5 mg-650 mg Tab RxNorm: 278409 1 Ta blet(s) PO Q4H 05/19/2010 03/20/2011 Inactive Prednisone 20 mg Tab RxNorm: 511535 1 Tablet(s) PO BID 05/17/2010 Inactive Prednisone 20 mg Tab RxNorm: 812567 1 Tablet(s) PO BID 05/06/201001/2010 Inactive Premarin 1.25 mg Tab RxNorm: 393067 Tablet(s) PO 2 M-W-F, and 1 No-Vv-Ada-Sun 05/05/2010 08/02/2010 Inactive Premarin 1.25 mg Tab RxNorm: 100114 Tablet(s) PO 2 M-W-F, and 1 Zz-Py-Kcu-Sun 05/04/2010 05/04/2010 Inactive Premarin 1.25 mg Tab RxNorm: 810014 Tablet(s) PO 2 M-W-F, and 1 Cl-Qr-Xdc-Sun 05/04/2010 05/03/2010 Inactive Prednisone 20 mg Tab RxNorm: 582715 1 Tablet(s) PO BID 04/27/2010 Inactive Alprazolam 0.5 mg Tab RxNorm: 678180 2 Tablet(s) PO QD prn 04/26/20 10 05/22/2010 Inactive Clindamycin 300 mg Cap RxNorm: 909738 2 Capsule(s) PO TID 04/05/2010 04/18/2010 Inactive Terbinafine 250 mg Tab RxNorm: 015388 1 Tablet(s) PO QD 04/04/2010 Inactive Hydrocodone-Acetaminophen 7.5 mg-650 mg Tab RxNorm: 076638 1 Ta blet(s) PO Q4H 03/30/2010 04/18/2010 Inactive Avelox 400 mg Tab RxNorm: 318214 1 Tablet(s) PO QD 03/09/2010 010 Inactive Hydrocodone-Acetaminophen 7.5 mg-650 mg Tab RxNorm: 545810 1 Ta blet(s) PO Q4H 03/08/2010 03/27/2010 Inactive Alprazolam 0.5 mg Tab RxNorm: 372713 2 Tablet(s) PO QD prn 03/08/20 10 04/25/2010 Inactive Klor-Con 8 mEq Tab RxNorm: 772109 1 Tablet(s) PO QD when takes lasi x 03/07/2010 09/29/2019 Inactive Premarin 1.25 mg Tab RxNorm: 687446 1 Tablet(s) PO QD 03/03/201003/11 Inactive Alprazolam 0.5 mg Tab RxNorm: 923194 1 Tablet(s) PO BID PRN 010 No Stop Date Active triamterene-hydrochlorothiazide 75 mg-50 mg Tab RxNorm: 3108 18 1 Tablet(s) PO QD 02/09/2010 02/03/2011 Inactive Hydrocodone-Acetaminophen 10 mg-750 mg Tab RxNorm: 442208 1 Tablet(s) PO Q4H PRN 02/09/2010 03/20/2011 Inactive Clonidine 0.2 mg Tab RxNorm: 810944 1 Tablet(s) PO TID 01/13/201009/2009 Inactive Alprazolam 0.5 mg Tab RxNorm: 330542 1 Tablet(s) PO BID PRN 010 01/12/2010 Inactive Hydrocodone-Acetaminophen 10 mg-750 mg Tab RxNorm: 529412 1 Tablet(s) PO Q4H PRN 01/13/2010 01/12/2010 Inactive ANGELIQ 1 mg-0.5 mg Tab RxNorm: 4432551 1 Tablet(s) PO QD 12/27/2009 01/23/2010 Inactive Lasix 40 mg Tab RxNorm: 775931 1 Tablet(s) PO QAM 12/14/2009 06/11/20 10 Inactive Vitamin B12 1000mcg Tablet RxNorm: 1 Tablet(s) PO QD No Start Date Active cyclobenzaprine 10 mg tablet RxNorm: 746012 1 Tablet(s) PO TID as needed DO NOT USE WITH BACLOFEN No Start Date Active Vitamin D 5,000 unit Tab RxNorm: 1 Tablet(s) PO QD No Start Date Active vitamin E (dl, acetate) 400 unit Cap RxNorm: 235035 1 Capsule(s ) PO QD No Start Date Active Benadryl 25 mg Cap RxNorm: 6653361 Capsule(s) PO PRN No Start Date Inactive amitriptyline 100 mg tablet RxNorm: 914963 1 Tablet(s) PO QHS No St art Date 11/27/2016 Inactive Zithromax Z-Dustin 250 mg tablet RxNorm: 833054 Tablet(s) PO as di rected No Start Date 07/22/2013 Inactive Klor-Con 8 mEq tablet,extended release RxNorm: 400172 1 Tablet( s) PO BID No Start Date 07/28/2012 Inactive scopolamine 1.5 mg 72 hr Transderm Patch RxNorm: 319980 Application TD Q72H for motion sickness No Start Date 05/25/2013 Inactive Klonopin 1 mg tablet RxNorm: 041211 1-2 Tablet(s) PO QHS as nee ded for sleep No Start Date 06/20/2015 Inactive Klor-Con M20 mEq tablet,extended release RxNorm: 926754 2 Tablet(s) PO BID to use with lasix No Start Date 11/11/2013 Inactive Bystolic 5 mg tablet RxNorm: 691738 1 Tablet(s) PO QD No Start Date 1 Inactive Bystolic 10 mg tablet RxNorm: 940490 1 Tablet(s) PO BID No Start Da te 07/06/2015 Inactive Premarin 1.25 mg Tab RxNorm: 287938 Tablet(s) PO 2 -, and 1 Pm-[id number] No Start Date 05/03/2010 Inactive baclofen 20 mg tablet RxNorm: 829966 1 Tablet(s) PO TID as needed for muscle spasm No Start Date 07/22/2015 Inactive hydrocodone-acetaminophen 7.5 mg-650 mg Tab RxNorm: 058940 1 Tablet(s) PO Q4H as needed for pain No Start Date 03/20/2011 Inactive albuterol sulfate 1.25 mg/3 mL Neb Solution RxNorm: 704249 1 Unit Dose INH Q4H 2boxes No Start Date 09/06/2015 Inactive Butrans 20 mcg/hour Transderm Patch RxNorm: 726629 1 TD WEEKLY apply to skin weekly after removing previous. No Start Date 07/22/2013 Inactive Medrol (Dustin) 4 mg tablets in a dose pack RxNorm: 308937 Tablet(s) PO As Directed No Start Date 07/30/2016 Inactive hydrocodone-acetaminophen 10 mg-325 mg Tab RxNorm: 1409590 1-2 Tablet(s) PO TID as needed for pain No Start Date 03/19/2011 Inactive Klonopin 1 mg tablet RxNorm: 205731 1 Tablet(s) PO QHS No Start Date 02/28/2016 Inactive honey topical RxNorm: topical No Start Date 06/16/2018 Inactive Clonidine 0.2 mg Tab RxNorm: 148941 1 Tablet(s) PO TID No Start Date 01/12/2010 Inactive ketorolac 10 mg tablet RxNorm: 638192 1 Tablet(s) PO Q8H No Start D ate 03/18/2012 Inactive as needed for headache Singulair 10 mg Tab RxNorm: 756644 1 Tablet(s) PO QD No Start Date Inactive Premarin 1.25 mg Tab RxNorm: 966674 1 Tablet(s) PO QD No Start Date 1 Inactive Flonase 50 mcg/Actuation Nasal Dickens RxNorm: 6537774 1 Dickens CECELIA AL BID No Start Date 03/18/2012 Inactive Terbinafine 250 mg Tab RxNorm: 667748 1 Tablet(s) PO QD No Start Da te 04/03/2010 Inactive Fexofenadine 180 mg Tab RxNorm: 9504777 1 Tablet(s) PO QD No Start Date 09/06/2015 Inactive baclofen 20 mg tablet RxNorm: 791548 1 Tablet(s) PO TID as needed N o Start Date 05/25/2014 Inactive Diovan 160 mg Tab RxNorm: 117303 1 Tablet(s) PO QD No Start Date 09/12 Inactive mupirocin 2 % topical ointment RxNorm: 616660 1 Application TOP QID No Start Date 04/25/2016 Inactive ZOFRAN ODT 4 mg Tab, Rapid Dissolve RxNorm: 421760 1 Tablet(s) PO Q4H No Start Date 03/18/2012 Inactive as needed for nausea and vomiting Alprazolam 0.5 mg Tab RxNorm: 920189 1 Tablet(s) PO BID PRN No Star t Date 01/12/2010 Inactive cyclobenzaprine 10 mg tablet RxNorm: 581745 1 Tablet(s) PO TID as needed for muscle spasm No Start Date 10/08/2017 Inactive Albuterol 0.083% Aerosol Solution RxNorm: 1 Appl ication INH Q4H Use one ampule every 4 hrs with nebulizer as needed for shortness of breath. No Start Date 10/09/2010 Inactive lorazepam 1 mg tablet RxNorm: 391375 1 1/2 Tablet(s) PO QHS No Star t Date 02/02/2016 Inactive Melatonin 3 mg Tab RxNorm: 476420 Tablet(s) PO PRN No Start Date 07/11 Inactive Medrol (Dustin) 4 mg Tabs in a Dose Pack RxNorm: 197982 Tablet(s) PO N o Start Date 11/28/2010 Inactive lorazepam 1 mg tablet RxNorm: 939936 1 Tablet(s) PO QHS as need ed for sleep No Start Date 01/30/2016 Inactive hydrocodone-acetaminophen 10 mg-325 mg Tab RxNorm: 4865990 1-2 Tablet(s) PO QID as needed for severe pain No Start Date 03/24/2012 Inactive celecoxib 200 mg capsule RxNorm: 441881 1 Capsule(s) PO BID No Star t Date 06/26/2019 Inactive amlodipine 5 mg-benazepril 20 mg capsule RxNorm: 840900 1 Capsu le(s) PO QD No Start Date 04/10/2017 Inactive Bystolic 20 mg tablet RxNorm: 949117 1/2 Tablet(s) PO QAM No Start Date 01/23/2016 Inactive Bystolic 20 mg tablet RxNorm: 589310 1 Tablet(s) PO QAM No Start Da te 04/25/2016 Inactive Ambien 10 mg Tab RxNorm: 091640 1 Tablet(s) PO QHS No Start Date 05/11 Inactive Klor-Con 8 mEq Tab RxNorm: 931519 1 Tablet(s) PO QD when takes lasix No Start Date 03/06/2010 Inactive aspirin 81 mg tablet RxNorm: 386763 1 Tablet(s) PO QD No Start Date 0 01/29/2018 Inactive hydrocodone-acetaminophen 10 mg-325 mg Tab RxNorm: 0647708 1-2 T ablet(s) PO QID No Start Date 01/10/2012 Inactive Bystolic 10 mg tablet RxNorm: 462221 1 Tablet(s) PO QAM take one daily in the morning. No Start Date 05/28/2013 Inactive nystatin 100,000 unit/mL Oral Susp RxNorm: 462178 5 Milliliter( s) PO QID No Start Date 03/18/2012 Inactive swish and spit scopolamine 1.5 mg 72 hr Transderm Patch RxNorm: 669632 1 Unit Dose TD Q72H for motion sickness No Start Date 12/23/2013 Inactive Hydrocodone-Acetaminophen 10 mg-750 mg Tab RxNorm: 773414 1 Tablet(s) PO Q4H PRN No Start Date 01/12/2010 Inactive Soma 350 mg tablet RxNorm: 494545 1 Tablet(s) PO TID as needed for spasm No Start Date 01/12/2013 Inactive baclofen 10 mg tablet RxNorm: 424390 1 Tablet(s) PO TID as needed for muscle spasm No Start Date 09/18/2019 Inactive Soma 350 mg Tab RxNorm: 724635 1 Tablet(s) PO TID for spasm No Star t Date 01/31/2012 Inactive Co Q-10 400 mg capsule RxNorm: 770213 1 Capsule(s) PO QD No Start D ate 01/21/2019 Inactive nystatin 100,000 unit/gram topical cream RxNorm: 363898 Applica tion TOP BID No Start Date 03/22/2015 Inactive Exforge 5 mg-160 mg Tab RxNorm: 355390 1 Tablet(s) PO QD No Start D ate 10/09/2010 Inactive Hydrocodone-Acetaminophen 7.5 mg-650 mg Tab RxNorm: 086057 1 Ta blet(s) PO Q4H No Start Date 03/07/2010 Inactive Robaxin-750 750 mg Tab RxNorm: 259295 1-2 Tablet(s) PO TID prn spasm No Start Date 05/21/2011 Inactive amlodipine 5 mg tablet RxNorm: 822725 1 Tablet(s) PO QHS No Start D ate 09/29/2015 Inactive oxycodone-acetaminophen 10 mg-325 mg tablet RxNorm: 4468631 1-2 Tablet(s) PO Q6H No Start Date 06/16/2018 Inactive Triamterene-Hydrochlorothiazide 75 mg-50 mg Tab RxNorm: 3108 18 1 Tablet(s) PO QD No Start Date 02/08/2010 Inactive Alprazolam 0.5 mg Tab RxNorm: 750013 2 Tablet(s) PO QD prn No Start Date 03/07/2010 Inactive Bystolic 20 mg tablet RxNorm: 317940 1 Tablet(s) PO QAM No Start Da te 08/17/2015 Inactive ketorolac 10 mg tablet RxNorm: 220351 1 Tablet(s) PO QID prn he adache No Start Date 07/17/2012 Inactive acyclovir 800 mg Tab RxNorm: 308780 1 Tablet(s) PO BID No Start Date 03/18/2012 Inactive duloxetine 60 mg capsule,delayed release RxNorm: 207813 1 Capsu le(s) PO QD No Start Date 09/29/2015 Inactive Norvasc 5 mg tablet RxNorm: 923444 1 Tablet(s) PO QHS No Start Date 1 10/18/2014 Inactive promethazine 25 mg tablet RxNorm: 739526 1 Tablet(s) PO Q8H use sparingly No Start Date 07/22/2013 Inactive alprazolam 0.5 mg tablet RxNorm: 694061 3 Tablet(s) PO QHS No Start Date 06/06/2015 Inactive Lunesta 3 mg tablet RxNorm: 655881 1 Tablet(s) PO QHS No Start Date 0 09/20/2017 Inactive hydrocodone-acetaminophen 10 mg-325 mg Tab RxNorm: 9901366 1-2 Tablet(s) PO TID as needed for pain No Start Date 12/10/2011 Inactive Coricidin HBP Cough & Cold 4 mg-30 mg Tab RxNorm: 6146521 Tablet (s) PO PRN No Start Date 10/09/2010 Inactive Bactroban 2 % Ointment RxNorm: 634921 Application TOP QID to so res No Start Date 02/22/2012 Inactive Flonase 50 mcg/actuation Nasal Dickens RxNorm: 389275 2 Dickens CECELIA AL QHS No Start Date 03/03/2014 Inactive Medication Administered No Medication Administered data Immunizations Vaccine Codes Date Status Tetanus, Diptheria, Pertussis CVX: 115 02/27/2014 Results Observation Observation Code Item Item Code Result Date S [facility] Location COMPREHENSIVE METABOLIC 31982 AST 15 U/L 2019 Unknown COMPREHENSIVE METABOLIC 35573 ALT 13 U/L 2019 Unknown COMPREHENSIVE METABOLIC 49329 BUN 12 mg/dL 2019 Unknown COMPREHENSIVE METABOLIC 52754 ALBUMIN 3.9 g/dL 2019 Unknown COMPREHENSIVE METABOLIC 69137 CHLORIDE 97 mmol/L 2019 Unknown COMPREHENSIVE METABOLIC 46646 Bili Total 0.4 mg/dL 09/29 Unknown COMPREHENSIVE METABOLIC 95055 ALK PHOS 130 U/L 2019 Unknown COMPREHENSIVE METABOLIC 18783 SODIUM 136 mmol/L 09/29 Unknown COMPREHENSIVE METABOLIC 51895 CREATININE 0.92 mg/dL 09/11 Unknown COMPREHENSIVE METABOLIC 74717 CALCIUM 9.1 mg/dL 2019 Unknown COMPREHENSIVE METABOLIC 06046 POTASSIUM 4.4 mmol/L 09/29 Unknown COMPREHENSIVE METABOLIC 80742 Total Protein 6.2 g/dL Unknown COMPREHENSIVE METABOLIC 74556 Glucose 391 mg/dL 2019 Unknown COMPREHENSIVE METABOLIC 60209 Bicarbonate 30 mmol/L 09/11 Unknown COMPREHENSIVE METABOLIC 98276 AGAP 9 mmol/L 2019 Unknown MEAN GLUC 8292655 Calc Mean Gluc 332 mg/dL 09/29/2019 Unkn own COMPLETE BLOOD COUNT [id number] WBC 7.0 10e9/L 09/29/19 Unknown COMPLETE BLOOD COUNT [id number] RBC 4.69 10e12/L 2019 Unknown COMPLETE BLOOD COUNT [id number] HEMOGLOBIN 14.6 g/dL 09/29/19 Unknown COMPLETE BLOOD COUNT [id number] HEMATOCRIT 45.2 % 09/29/19 Unknown COMPLETE BLOOD COUNT [id number] MCV 96.4 fL 0 Unknown COMPLETE BLOOD COUNT [id number] MCH 31.1 pg 0 Unknown COMPLETE BLOOD COUNT [id number] MCHC 32.3 g/dL 0 Unknown COMPLETE BLOOD COUNT [id number] PLATELET COUNT 209 10e9/L Unknown COMPLETE BLOOD COUNT 7594732 Mean Plt Volume 9.8 fL Unknown COMPLETE BLOOD COUNT 8599082 Neut Auto 48.1 % 0 Unknown COMPLETE BLOOD COUNT [id number] Lymph Auto 36.5 % 09/29/19 Unknown COMPLETE BLOOD COUNT [id number] Maverick Auto 8.6 % 0 Unknown COMPLETE BLOOD COUNT 9187555 Eos Auto 6.5 % 0 Unknown COMPLETE BLOOD COUNT 6151077 RDW 13.4 % 0 Unknown COMPLETE BLOOD COUNT 3235688 Baso Auto 0.3 % 0 Unknown COMPLETE BLOOD COUNT 6205874 Neutrophil Abs 3.37 10e9/L Unknown COMPLETE BLOOD COUNT [id number] Lymphocyte Abs 2.56 10e9/L Unknown COMPLETE BLOOD COUNT 7000010 Monocyte Abs 0.60 10e9/L 09/11 Unknown COMPLETE BLOOD COUNT [id number] Eosinophil Abs 0.46 10e9/L Unknown COMPLETE BLOOD COUNT 8291597 RDW-SD 45.9 fL 0 Unknown COMPLETE BLOOD COUNT [id number] Basophil Abs 0.02 10e9/L 09/11 Unknown LIPID GROUP 68969 Cholesterol 248 mg/dL 09/29/2019 Unkno wn LIPID GROUP 48077 Triglyceride 898 mg/dL 09/29/2019 Unkn own LIPID GROUP 38862 HDL CHOLESTEROL 41 mg/dL 09/29/2019 U nknown LIPID GROUP 04998 Chol/HDL Ratio 6.05 ratio 09/29/2019 U nknown LIPID GROUP 23270 NON-HDL Chol 207 mg/dL 09/29/2019 Unkn own LIPID GROUP 18329 LDL Cholesterol N/A Trig >400 020 Unknown GLYCOSYLATED HEMOGLOBIN TEST 31153 Hgb A1c 33448-6 13.2 % 0 09/29/2019 Unknown FREE T4 37085 T4 Free 0.75 ng/dL 09/29/2019 Unknown GFR CALC 2355444 GFR Non Afr Amr >60 mL/min 09/29/2019 Un known GFR CALC 2314783 GFR Afr Amr >60 mL/min 09/29/2019 Unknow n THYROID STIMULATING HORMONE 27993 TSH 4.245 uIU/mL 09/29/2019 Unknown COMPLETE BLOOD COUNT [id number] WBC 10.7 10e9/L 018 Unknown COMPLETE BLOOD COUNT [id number] RBC 4.59 10e12/L 2017 Unknown COMPLETE BLOOD COUNT 6596308 HEMOGLOBIN 14.8 g/dL 12/11/19 18 Unknown COMPLETE BLOOD COUNT [id number] HEMATOCRIT 44.9 % 12/11/19 18 Unknown COMPLETE BLOOD COUNT [id number] MCV 97.8 fL 8 Unknown COMPLETE BLOOD COUNT 6112522 MCH 32.2 pg 8 Unknown COMPLETE BLOOD COUNT 9642161 MCHC 33.0 g/dL 8 Unknown COMPLETE BLOOD COUNT [id number] PLATELET COUNT 261 10e9/L 10/2017 Unknown COMPLETE BLOOD COUNT [id number] Mean Plt Volume 9.5 fL 10/2017 Unknown COMPLETE BLOOD COUNT 2969834 Neut Auto 59.9 % 8 Unknown COMPLETE BLOOD COUNT [id number] Lymph Auto 27.4 % 12/11/19 18 Unknown COMPLETE BLOOD COUNT 9935468 Maverick Auto 8.2 % 8 Unknown COMPLETE BLOOD COUNT 6197394 RDW 13.3 % 8 Unknown COMPLETE BLOOD COUNT 9355187 Eos Auto 4.1 % 8 Unknown COMPLETE BLOOD COUNT 4342006 Baso Auto 0.4 % 8 Unknown COMPLETE BLOOD COUNT [id number] Neutrophil Abs 6.41 10e9/L Unknown COMPLETE BLOOD COUNT [id number] Lymphocyte Abs 2.93 10e9/L Unknown COMPLETE BLOOD COUNT 0597998 Monocyte Abs 0.88 10e9/L 10/2017 Unknown COMPLETE BLOOD COUNT [id number] Eosinophil Abs 0.44 10e9/L Unknown COMPLETE BLOOD COUNT [id number] Basophil Abs 0.04 10e9/L 10/2017 Unknown COMPLETE BLOOD COUNT 1204076 RDW-SD 46.2 fL 8 Unknown THYROID STIMULATING HORMONE 33098 TSH 4.015 uIU/mL 12/10/2017 Unknown COMPREHENSIVE METABOLIC 68546 AST 25 U/L 2017 Unknown COMPREHENSIVE METABOLIC 27253 ALT 17 U/L 2017 Unknown COMPREHENSIVE METABOLIC 29282 BUN 19 mg/dL 2017 Unknown COMPREHENSIVE METABOLIC 69869 ALBUMIN 4.0 g/dL 2017 Unknown COMPREHENSIVE METABOLIC 82147 CHLORIDE 91 mmol/L 2017 Unknown COMPREHENSIVE METABOLIC 12154 Bili Total 0.5 mg/dL 12/10 Unknown COMPREHENSIVE METABOLIC 44433 ALK PHOS 75 U/L 2017 Unknown COMPREHENSIVE METABOLIC 62717 SODIUM 136 mmol/L 12/10 Unknown COMPREHENSIVE METABOLIC 50413 CREATININE 1.05 mg/dL 10/2017 Unknown COMPREHENSIVE METABOLIC 57397 CALCIUM 8.9 mg/dL 2017 Unknown COMPREHENSIVE METABOLIC 91278 POTASSIUM 3.4 mmol/L 12/10 Unknown COMPREHENSIVE METABOLIC 68497 Total Protein 6.5 g/dL Unknown COMPREHENSIVE METABOLIC 28306 Glucose 138 mg/dL 2017 Unknown COMPREHENSIVE METABOLIC 24549 Bicarbonate 35 mmol/L 10/2017 Unknown COMPREHENSIVE METABOLIC 23153 AGAP 10 mmol/L 2017 Unknown MEAN GLUC 1922644 Calc Mean Gluc 171 mg/dL 12/10/2017 Unkn own LIPID GROUP 40437 Cholesterol 204 mg/dL 12/10/2017 Unkno wn LIPID GROUP 88053 Triglyceride 411 mg/dL 12/10/2017 Unkn own LIPID GROUP 23145 HDL CHOLESTEROL 50 mg/dL 12/10/2017 U nknown LIPID GROUP 94609 Chol/HDL Ratio 4.08 ratio 12/10/2017 U nknown LIPID GROUP 17269 NON-HDL Chol 154 mg/dL 12/10/2017 Unkn own LIPID GROUP 79355 LDL Cholesterol N/A Trig >400 018 Unknown GLYCOSYLATED HEMOGLOBIN TEST 97502 Hgb A1c 31422-1 7.6 % 0 12/10/2017 Unknown FREE T4 54800 T4 Free 1.40 ng/dL 12/10/2017 Unknown GFR CALC 3965846 GFR Non Afr Amr 55 mL/min 12/10/2017 Unk nown GFR CALC 7659662 GFR Afr Amr >60 mL/min 12/10/2017 Unknow n GFR CALC 2071958 GFR Afr Amr 59 mL/min 06/28/2017 Unknown GFR CALC 1578769 GFR Non Afr Amr 48 mL/min 06/28/2017 Unk nown COMPREHENSIVE METABOLIC 49183 AST 32 U/L 2016 Unknown COMPREHENSIVE METABOLIC 24601 ALT 22 U/L 2016 Unknown COMPREHENSIVE METABOLIC 86485 BUN 23 mg/dL 2016 Unknown COMPREHENSIVE METABOLIC 02079 ALBUMIN 4.7 g/dL 2016 Unknown COMPREHENSIVE METABOLIC 43228 CHLORIDE 89 mmol/L 2016 Unknown COMPREHENSIVE METABOLIC 13969 Bili Total 0.5 mg/dL 06/28 Unknown COMPREHENSIVE METABOLIC 94723 ALK PHOS 90 U/L 2016 Unknown COMPREHENSIVE METABOLIC 02758 SODIUM 135 mmol/L 06/28 Unknown COMPREHENSIVE METABOLIC 32447 CREATININE 1.18 mg/dL 06/10 Unknown COMPREHENSIVE METABOLIC 78919 CALCIUM 9.7 mg/dL 2016 Unknown COMPREHENSIVE METABOLIC 53301 POTASSIUM 3.5 mmol/L 06/28 Unknown COMPREHENSIVE METABOLIC 49735 Total Protein 7.7 g/dL Unknown COMPREHENSIVE METABOLIC 33494 Glucose 129 mg/dL 2016 Unknown COMPREHENSIVE METABOLIC 20371 Bicarbonate 34 mmol/L 06/10 Unknown COMPREHENSIVE METABOLIC 39673 AGAP 12 mmol/L 2016 Unknown LIPID GROUP 72790 HDL TEST 64 MG/DL 08/27/2014 Unknown LIPID GROUP 56725 TRIG 222 MG/DL 08/27/2014 Unknown LIPID GROUP 83319 TEST LDL 209 MG/DL 08/27/2014 Unknown LIPID GROUP 87016 CHOL 317 MG/DL 08/27/2014 Unknown LIPID GROUP 14356 RCHOL/HDL 4.95 RATIO 08/27/2014 Unknow n LIPID GROUP 36179 NON-HDL CH 253 MG/DL 08/27/2014 Unknow n GFR CALC 0900917 GFR AA >60 ML/MIN 08/27/2014 Unknown GFR CALC 0790903 GFR NON-AA >60 ML/MIN 08/27/2014 Unknown COMPLETE BLOOD COUNT [id number] WBC 7.0 10e9/L 08/27/20 14 Unknown COMPLETE BLOOD COUNT [id number] RBC 4.98 10e12/L 2013 Unknown COMPLETE BLOOD COUNT 9023764 HGB 15.6 g/dL 4 Unknown COMPLETE BLOOD COUNT 5640011 HCT DET 46.5 % 4 Unknown COMPLETE BLOOD COUNT 1885020 MCV 93.4 fL 4 Unknown COMPLETE BLOOD COUNT 7361259 MCH 31.3 pg 4 Unknown COMPLETE BLOOD COUNT 1161091 MCHC 33.5 g/dL 4 Unknown COMPLETE BLOOD COUNT 7437510 PLT 309 10e9/L 08/27/20 14 Unknown COMPLETE BLOOD COUNT 4719037 MPV 9.6 fL 4 Unknown COMPLETE BLOOD COUNT 8738676 CADEN % 57.2 % 4 Unknown COMPLETE BLOOD COUNT 6244794 LY % 33.2 % 4 Unknown COMPLETE BLOOD COUNT 5548330 MON % 7.3 % 4 Unknown COMPLETE BLOOD COUNT 4095177 EOS % 2.0 % 4 Unknown COMPLETE BLOOD COUNT 5134035 BASO % 0.3 % 4 Unknown COMPLETE BLOOD COUNT 6583060 RDW 13.7 % 4 Unknown COMPLETE BLOOD COUNT 9702590 ABS CADEN 4.00 10e9/L 014 Unknown COMPLETE BLOOD COUNT 0924862 ABS LYMPH 2.32 10e9/L 014 Unknown COMPLETE BLOOD COUNT 8056445 ABS MONO 0.51 10e9/L 014 Unknown COMPLETE BLOOD COUNT 6453772 ABS EOS 0.14 10e9/L 014 Unknown COMPLETE BLOOD COUNT 4383492 ABS BASO 0.02 10e9/L 014 Unknown COMPLETE BLOOD COUNT 1931736 RDW-SD 45.1 fL 4 Unknown COMPREHENSIVE METABOLIC 87627 AST 13 U/L 2013 Unknown COMPREHENSIVE METABOLIC 96501 ALT 11 IU/L 2013 Unknown COMPREHENSIVE METABOLIC 50201 BUN 23 MG/DL 2013 Unknown COMPREHENSIVE METABOLIC 96000 ALBUMIN 4.4 GM/DL 2013 Unknown COMPREHENSIVE METABOLIC 88662 CHLORIDE 99 MMOL/L 2013 Unknown COMPREHENSIVE METABOLIC 12316 BILI TOT 0.5 MG/DL 2013 Unknown COMPREHENSIVE METABOLIC 62142 ALK PHOS 56 U/L 2013 Unknown COMPREHENSIVE METABOLIC 73960 SODIUM 138 MMOL/L 08/27 Unknown COMPREHENSIVE METABOLIC 69666 CREATININE 0.95 MG/DL 08/10 Unknown COMPREHENSIVE METABOLIC 64067 CALCIUM 9.8 MG/DL 2013 Unknown COMPREHENSIVE METABOLIC 59572 POTASSIUM 3.5 MMOL/L 08/27 Unknown COMPREHENSIVE METABOLIC 06366 PROT TOT 6.8 GM/DL 2013 Unknown COMPREHENSIVE METABOLIC 95902 Glucose 90 MG/DL 2013 Unknown COMPREHENSIVE METABOLIC 01260 BICARB 34 MMOL/L 2013 Unknown COMPREHENSIVE METABOLIC 03631 ANION GAP 5 MEQ/L 2013 Unknown LIPASE 35767 LIPASE 11 IU/L 07/21/2014 Unknown AMYLASE 47299 AMYLASE 39 IU/L 07/21/2014 Unknown HEMOGLOBIN A1C (GLYCOSYLATED) 9785763 A1C HPLC 78792-0 6.2 % 03/05/2013 Unknown THYROID STIMULATING HORMONE 21392 TSH 6.986 uIU/ML 03/05/2013 Unknown COMPLETE BLOOD COUNT 6918056 WBC 12.7 10e9/L 013 Unknown COMPLETE BLOOD COUNT [id number] RBC 4.53 10e12/L 2012 Unknown COMPLETE BLOOD COUNT 2477291 HGB 14.7 g/dL 3 Unknown COMPLETE BLOOD COUNT 6397291 HCT DET 43.1 % 3 Unknown COMPLETE BLOOD COUNT 5043546 MCV 95.1 fL 3 Unknown COMPLETE BLOOD COUNT 5199783 MCH 32.5 pg 3 Unknown COMPLETE BLOOD COUNT 2043078 MCHC 34.1 g/dL 3 Unknown COMPLETE BLOOD COUNT 9097754 PLT 346 10e9/L 03/05/20 13 Unknown COMPLETE BLOOD COUNT 8306443 MPV 9.5 fL 3 Unknown COMPLETE BLOOD COUNT 1651542 CADEN % 67.6 % 3 Unknown COMPLETE BLOOD COUNT 2235614 LY % 22.1 % 3 Unknown COMPLETE BLOOD COUNT 1345622 MON % 6.6 % 3 Unknown COMPLETE BLOOD COUNT 8987397 EOS % 3.3 % 3 Unknown COMPLETE BLOOD COUNT 1958826 BASO % 0.4 % 3 Unknown COMPLETE BLOOD COUNT 8132958 RDW 14.0 % 3 Unknown COMPLETE BLOOD COUNT 6385871 ABS CADEN 8.59 10e9/L 013 Unknown COMPLETE BLOOD COUNT 3989700 ABS LYMPH 2.81 10e9/L 013 Unknown COMPLETE BLOOD COUNT 6562527 ABS MONO 0.84 10e9/L 013 Unknown COMPLETE BLOOD COUNT [id number] ABS EOS 0.42 10e9/L 013 Unknown COMPLETE BLOOD COUNT 7938417 ABS BASO 0.05 10e9/L 013 Unknown COMPLETE BLOOD COUNT 3397704 RDW-SD 46.0 fL 3 Unknown FREE T4 25008 FREE T4 1.14 NG/DL 03/05/2013 Unknown COMPREHENSIVE METABOLIC 08200 AST 17 U/L 2012 Unknown COMPREHENSIVE METABOLIC 78017 ALT 12 IU/L 2012 Unknown COMPREHENSIVE METABOLIC 13470 BUN 24 MG/DL 2012 Unknown COMPREHENSIVE METABOLIC 13359 ALBUMIN 4.2 GM/DL 2012 Unknown COMPREHENSIVE METABOLIC 60755 CHLORIDE 93 MMOL/L 2012 Unknown COMPREHENSIVE METABOLIC 17826 BILI TOT 0.5 MG/DL 2012 Unknown COMPREHENSIVE METABOLIC 65407 ALK PHOS 75 U/L 2012 Unknown COMPREHENSIVE METABOLIC 22950 SODIUM 141 MMOL/L 03/05 Unknown COMPREHENSIVE METABOLIC 60636 CREATININE 1.36 MG/DL 02/09 Unknown COMPREHENSIVE METABOLIC 07587 CALCIUM 9.2 MG/DL 2012 Unknown COMPREHENSIVE METABOLIC 73364 POTASSIUM 3.1 MMOL/L 03/05 Unknown COMPREHENSIVE METABOLIC 97011 PROT TOT 6.9 GM/DL 2012 Unknown COMPREHENSIVE METABOLIC 94732 Glucose 123 MG/DL 2012 Unknown COMPREHENSIVE METABOLIC 81635 BICARB 36 MMOL/L 2012 Unknown COMPREHENSIVE METABOLIC 69409 ANION GAP 12 MEQ/L 2012 Unknown GFR CALC 6288868 GFR AA 51.0L ML/MIN 03/05/2013 Unknow n GFR CALC 0776221 GFR NON-AA 42.0L ML/MIN 03/05/2013 Unkno wn COMPREHENSIVE METABOLIC 38563 AST 14 U/L 2012 Unknown COMPREHENSIVE METABOLIC 69892 ALT 11 IU/L 2012 Unknown COMPREHENSIVE METABOLIC 40324 BUN 16 MG/DL 2012 Unknown COMPREHENSIVE METABOLIC 40358 ALBUMIN 4.2 GM/DL 2012 Unknown COMPREHENSIVE METABOLIC 75012 CHLORIDE 98 MMOL/L 2012 Unknown COMPREHENSIVE METABOLIC 36696 BILI TOT 0.4 MG/DL 2012 Unknown COMPREHENSIVE METABOLIC 63056 ALK PHOS 77 U/L 2012 Unknown COMPREHENSIVE METABOLIC 12438 SODIUM 139 MMOL/L 09/25 Unknown COMPREHENSIVE METABOLIC 93142 CREATININE 0.86 MG/DL 09/10 Unknown COMPREHENSIVE METABOLIC 11999 CALCIUM 9.5 MG/DL 2012 Unknown COMPREHENSIVE METABOLIC 96562 POTASSIUM 3.8 MMOL/L 09/25 Unknown COMPREHENSIVE METABOLIC 86437 PROT TOT 6.8 GM/DL 2012 Unknown COMPREHENSIVE METABOLIC 73530 Glucose 91 MG/DL 2012 Unknown COMPREHENSIVE METABOLIC 18685 BICARB 32 MMOL/L 2012 Unknown COMPREHENSIVE METABOLIC 13724 ANION GAP 9 MEQ/L 2012 Unknown FREE T4 27750 FREE T4 0.98 NG/DL 09/25/2012 Unknown THYROID STIMULATING HORMONE 36471 TSH 1.736 uIU/ML 09/25/2012 Unknown C-REACTIVE PROTEIN (CRP) QUANT 51726 CRP 2.3 MG/DL 09/25/2012 Unknown COMPLETE BLOOD COUNT 8853455 WBC 11.9 10e9/L 013 Unknown COMPLETE BLOOD COUNT 0691990 RBC 4.87 10e12/L 2012 Unknown COMPLETE BLOOD COUNT 4453638 HGB 15.1 g/dL 3 Unknown COMPLETE BLOOD COUNT 2694197 HCT DET 44.8 % 3 Unknown COMPLETE BLOOD COUNT 0587647 MCV 92.0 fL 3 Unknown COMPLETE BLOOD COUNT 2253145 MCH 31.0 pg 3 Unknown COMPLETE BLOOD COUNT 5598010 MCHC 33.7 g/dL 3 Unknown COMPLETE BLOOD COUNT 2617379 PLT 343 10e9/L 09/25/19 13 Unknown COMPLETE BLOOD COUNT 4331373 MPV 9.0 fL 3 Unknown COMPLETE BLOOD COUNT 1419178 CADEN % 68.2 % 3 Unknown COMPLETE BLOOD COUNT 2710957 LY % 22.4 % 3 Unknown COMPLETE BLOOD COUNT 2727511 MON % 6.4 % 3 Unknown COMPLETE BLOOD COUNT [id number] EOS % 2.7 % 3 Unknown COMPLETE BLOOD COUNT 5027864 BASO % 0.3 % 3 Unknown COMPLETE BLOOD COUNT 5139208 RDW 13.8 % 3 Unknown COMPLETE BLOOD COUNT 3281027 ABS CADEN 8.12 10e9/L 013 Unknown COMPLETE BLOOD COUNT 4468594 ABS LYMPH 2.67 10e9/L 013 Unknown COMPLETE BLOOD COUNT 3250409 ABS MONO 0.76 10e9/L 013 Unknown COMPLETE BLOOD COUNT 3576615 ABS EOS 0.32 10e9/L 013 Unknown COMPLETE BLOOD COUNT [id number] ABS BASO 0.04 10e9/L 013 Unknown COMPLETE BLOOD COUNT 9106522 RDW-SD 45.6 fL 3 Unknown GFR CALC 7310331 GFR AA >60 ML/MIN 09/25/2012 Unknown GFR CALC 9438260 GFR NON-AA >60 ML/MIN 09/25/2012 Unknown ERYTHROCYTE SEDIMENTATION RATE 44874 ESR 19 MM/HR 05/06/2012 Unknown VITAMIN B 12 FOLIC ACID 30775|18515 VIT B 12 922 PG/ML 04/11 Unknown VITAMIN B 12 FOLIC ACID 45667|94131 FOLIC ACID 13.6 NG/ML Unknown URIC ACID 11853 URIC ACID 7.8 MG/DL 05/06/2012 Unknown COMPLETE BLOOD COUNT 36594 WBC 11.9 10e9/L 012 Unknown COMPLETE BLOOD COUNT 87987 RBC 5.30 10e12/L 2011 Unknown COMPLETE BLOOD COUNT 99032 HGB 16.6 g/dL 2 Unknown COMPLETE BLOOD COUNT 37183 HCT DET 47.2 % 2 Unknown COMPLETE BLOOD COUNT 53767 MCV 89.1 fL 2 Unknown COMPLETE BLOOD COUNT 55286 MCH 31.3 pg 2 Unknown COMPLETE BLOOD COUNT 77829 MCHC 35.2 g/dL 2 Unknown COMPLETE BLOOD COUNT 14058 PLT 362 10e9/L 05/06/20 12 Unknown COMPLETE BLOOD COUNT 43659 MPV 9.4 fL 2 Unknown COMPLETE BLOOD COUNT 48624 CADEN % 68.2 % 2 Unknown COMPLETE BLOOD COUNT 64182 LY % 22.0 % 2 Unknown COMPLETE BLOOD COUNT 75837 MON % 6.9 % 2 Unknown COMPLETE BLOOD COUNT 80383 EOS % 2.6 % 2 Unknown COMPLETE BLOOD COUNT 94115 BASO % 0.3 % 2 Unknown COMPLETE BLOOD COUNT 53034 RDW 12.8 % 2 Unknown COMPLETE BLOOD COUNT 43824 ABS CADEN 8.12 10e9/L 012 Unknown COMPLETE BLOOD COUNT 59817 ABS LYMPH 2.62 10e9/L 012 Unknown COMPLETE BLOOD COUNT 77117 ABS MONO 0.82 10e9/L 012 Unknown COMPLETE BLOOD COUNT 98739 ABS EOS 0.31 10e9/L 012 Unknown COMPLETE BLOOD COUNT 58657 ABS BASO 0.04 10e9/L 012 Unknown COMPLETE BLOOD COUNT 39643 RDW-SD 41.5 fL 2 Unknown GFR CALC [id number] GFR AA >60 ML/MIN 05/06/2012 Unknown GFR CALC [id number] GFR NON-AA 58.0L ML/MIN 05/06/2012 Unkno wn FREE T4 43796 FREE T4 1.15 NG/DL 05/06/2012 Unknown THYROID STIMULATING HORMONE 19114 TSH 1.568 uIU/ML 05/06/2012 Unknown COMPREHENSIVE METABOLIC 88510 AST 20 U/L 2011 Unknown COMPREHENSIVE METABOLIC 04495 ALT 12 IU/L 2011 Unknown COMPREHENSIVE METABOLIC 79362 BUN 20 MG/DL 2011 Unknown COMPREHENSIVE METABOLIC 88050 ALBUMIN 4.5 GM/DL 2011 Unknown COMPREHENSIVE METABOLIC 51467 CHLORIDE 91 MMOL/L 2011 Unknown COMPREHENSIVE METABOLIC 26149 BILI TOT 0.4 MG/DL 2011 Unknown COMPREHENSIVE METABOLIC 81527 ALK PHOS 73 U/L 2011 Unknown COMPREHENSIVE METABOLIC 21796 SODIUM 139 MMOL/L 05/06 Unknown COMPREHENSIVE METABOLIC 94383 CREATININE 1.02 MG/DL 04/11 Unknown COMPREHENSIVE METABOLIC 87794 CALCIUM 9.7 MG/DL 2011 Unknown COMPREHENSIVE METABOLIC 40873 POTASSIUM 3.1 MMOL/L 05/06 Unknown COMPREHENSIVE METABOLIC 84318 PROT TOT 7.3 GM/DL 2011 Unknown COMPREHENSIVE METABOLIC 96827 Glucose 118 MG/DL 2011 Unknown COMPREHENSIVE METABOLIC 94108 BICARB 33 MMOL/L 2011 Unknown COMPREHENSIVE METABOLIC 33352 ANION GAP 15 MEQ/L 2011 Unknown Procedures Procedure Codes Date ROUTINE VENIPUNCTURE CPT-4: 07206 09/29/2019 URINALYSIS NONAUTO W/O SCOPE CPT-4: 13665 09/29/2019 COMPREHEN METABOLIC PANEL CPT-4: 95091 09/29/2019 LIPID PANEL CPT-4: 60685 09/29/2019 A1C HPLC CPT-4: 57471 09/29/2019 ASSAY OF FREE THYROXINE CPT-4: 41382 09/29/2019 ASSAY THYROID STIM HORMONE CPT-4: 40972 09/29/2019 COMPLETE CBC W/AUTO DIFF WBC CPT-4: 87335 09/29/2019 URINALYSIS NONAUTO W/O SCOPE CPT-4: 31785 09/30/2018 MICROALBUMIN QUANTITATIVE CPT-4: 04179 09/30/2018 CEFTRIAXONE SODIUM INJECTION CPT-4: J0696 06/19/2018 THER/PROPH/DIAG INJ SC/IM CPT-4: 79410 06/19/2018 CEFTRIAXONE SODIUM INJECTION CPT-4: J0696 06/17/2018 THER/PROPH/DIAG INJ SC/IM CPT-4: 71215 06/17/2018 THER/PROPH/DIAG INJ SC/IM CPT-4: 93649 05/16/2018 KETOROLAC TROMETHAMINE INJ CPT-4: J1885 05/16/2018 ONDANSETRON HCL INJECTION CPT-4: J2405 05/16/2018 THER/PROPH/DIAG INJ SC/IM CPT-4: 94687 05/16/2018 ROUTINE VENIPUNCTURE CPT-4: 84767 03/20/2018 COMPREHEN METABOLIC PANEL CPT-4: 76558 03/20/2018 DEXAMETHASONE SODIUM PHOS CPT-4: J1100 02/11/2018 THER/PROPH/DIAG INJ SC/IM CPT-4: 53952 02/11/2018 TRIAMCINOLONE ACET INJ NOS CPT-4: J3301 02/11/2018 CEFTRIAXONE SODIUM INJECTION CPT-4: J0696 02/01/2018 THER/PROPH/DIAG INJ SC/IM CPT-4: 59560 02/01/2018 CEFTRIAXONE SODIUM INJECTION CPT-4: J0696 01/30/2018 THER/PROPH/DIAG INJ SC/IM CPT-4: 77253 01/30/2018 ROUTINE VENIPUNCTURE CPT-4: 69908 12/10/2017 ASSAY OF FREE THYROXINE CPT-4: 66480 12/10/2017 ASSAY THYROID STIM HORMONE CPT-4: 77342 12/10/2017 COMPREHEN METABOLIC PANEL CPT-4: 22139 12/10/2017 COMPLETE CBC W/AUTO DIFF WBC CPT-4: 84405 12/10/2017 LIPID PANEL CPT-4: 16625 12/10/2017 A1C HPLC CPT-4: 40776 12/10/2017 CEFTRIAXONE SODIUM INJECTION CPT-4: J0696 12/10/2017 THER/PROPH/DIAG INJ SC/IM CPT-4: 17014 12/10/2017 CEFTRIAXONE SODIUM INJECTION CPT-4: J0696 12/07/2017 THER/PROPH/DIAG INJ SC/IM CPT-4: 67177 12/07/2017 DEXAMETHASONE SODIUM PHOS CPT-4: J1100 12/07/2017 THER/PROPH/DIAG INJ SC/IM CPT-4: 58558 12/07/2017 CEFTRIAXONE SODIUM INJECTION CPT-4: J0696 10/08/2017 THER/PROPH/DIAG INJ SC/IM CPT-4: 51873 10/08/2017 CEFTRIAXONE SODIUM INJECTION CPT-4: J0696 09/21/2017 THER/PROPH/DIAG INJ SC/IM CPT-4: 90098 09/21/2017 CEFTRIAXONE SODIUM INJECTION CPT-4: J0696 09/20/2017 THER/PROPH/DIAG INJ SC/IM CPT-4: 15631 09/20/2017 REMOVAL OF NAIL PLATE CPT-4: 74838 08/29/2017 THER/PROPH/DIAG INJ SC/IM CPT-4: 89011 08/29/2017 TRIAMCINOLONE ACET INJ NOS CPT-4: J3301 08/29/2017 CEFTRIAXONE SODIUM INJECTION CPT-4: J0696 08/29/2017 THER/PROPH/DIAG INJ SC/IM CPT-4: 88795 08/29/2017 DESTRUCT PREMALG LESION (Cryosurgery) CPT-4: 53838 ROUTINE VENIPUNCTURE CPT-4: 27759 06/27/2017 ASSAY OF FREE THYROXINE CPT-4: 85736 06/27/2017 ASSAY THYROID STIM HORMONE CPT-4: 35615 06/27/2017 COMPREHEN METABOLIC PANEL CPT-4: 96121 06/27/2017 COMPLETE CBC W/AUTO DIFF WBC CPT-4: 32765 06/27/2017 EXC TR-EXT B9+REECE 0.5 CM< CPT-4: 79333 01/24/2017 THER/PROPH/DIAG INJ SC/IM CPT-4: 76384 08/02/2016 DEXAMETHASONE SODIUM PHOS CPT-4: J1100 08/02/2016 DESTRUCT PREMALG LESION (Cryosurgery) CPT-4: 71285 EXC TR-EXT B9+REECE 0.5 CM< CPT-4: 85612 08/01/2016 AEROBIC WOUND CULTURE & STN CPT-4: 75318 07/06/2016 CEFTRIAXONE SODIUM INJECTION CPT-4: J0696 05/25/2016 THER/PROPH/DIAG INJ SC/IM CPT-4: 78699 05/25/2016 THER/PROPH/DIAG INJ SC/IM CPT-4: 22095 04/26/2016 DEXAMETHASONE SODIUM PHOS CPT-4: J1100 04/26/2016 CEFTRIAXONE SODIUM INJECTION CPT-4: J0696 04/26/2016 THER/PROPH/DIAG INJ SC/IM CPT-4: 93331 04/26/2016 THER/PROPH/DIAG INJ SC/IM CPT-4: 49175 02/09/2016 TRIAMCINOLONE ACET INJ NOS CPT-4: J3301 02/09/2016 URINALYSIS NONAUTO W/O SCOPE CPT-4: 93232 01/24/2016 URINE CULTURE/ COLONY COUNT CPT-4: 89904 01/24/2016 THER/PROPH/DIAG INJ SC/IM CPT-4: 90774 12/08/2015 TRIAMCINOLONE ACET INJ NOS CPT-4: J3301 12/08/2015 THER/PROPH/DIAG INJ SC/IM CPT-4: 59664 10/07/2015 TRIAMCINOLONE ACET INJ NOS CPT-4: J3301 10/07/2015 DESTRUCT PREMALG LESION (Cryosurgery) CPT-4: 15734 THER/PROPH/DIAG INJ SC/IM CPT-4: 29467 03/16/2015 METHYLPREDNISOLONE 40 MG INJ CPT-4: J1030 03/16/2015 DESTRUCT PREMALG LESION (Cryosurgery) CPT-4: 68665 THER/PROPH/DIAG INJ SC/IM CPT-4: 88110 09/11/2014 METHYLPREDNISOLONE 40 MG INJ CPT-4: J1030 09/11/2014 TRIAMCINOLONE ACET INJ NOS CPT-4: J3301 09/11/2014 CEFTRIAXONE SODIUM INJECTION CPT-4: J0696 09/11/2014 THER/PROPH/DIAG INJ SC/IM CPT-4: 90896 09/11/2014 ROUTINE VENIPUNCTURE CPT-4: 12148 08/27/2014 COMPREHEN METABOLIC PANEL CPT-4: 76152 08/27/2014 COMPLETE CBC W/AUTO DIFF WBC CPT-4: 30753 08/27/2014 LIPID PANEL CPT-4: 66860 08/27/2014 ROUTINE VENIPUNCTURE CPT-4: 30458 07/21/2014 ASSAY OF AMYLASE CPT-4: 26576 07/21/2014 ASSAY OF LIPASE CPT-4: 81437 07/21/2014 THER/PROPH/DIAG INJ SC/IM CPT-4: 48425 07/15/2014 TRIAMCINOLONE ACET INJ NOS CPT-4: J3301 07/15/2014 ROUTINE VENIPUNCTURE CPT-4: 36474 05/14/2014 ASSAY OF FREE THYROXINE CPT-4: 73102 05/14/2014 ASSAY THYROID STIM HORMONE CPT-4: 28972 05/14/2014 COMPREHEN METABOLIC PANEL CPT-4: 19457 05/14/2014 COMPLETE CBC W/AUTO DIFF WBC CPT-4: 90558 05/14/2014 LIPID PANEL CPT-4: 85951 05/14/2014 CEFTRIAXONE SODIUM INJECTION CPT-4: J0696 04/21/2014 THER/PROPH/DIAG INJ SC/IM CPT-4: 42424 04/21/2014 THER/PROPH/DIAG INJ SC/IM CPT-4: 45514 04/21/2014 TRIAMCINOLONE ACET INJ NOS CPT-4: J3301 04/21/2014 THER/PROPH/DIAG INJ SC/IM CPT-4: 34497 03/04/2014 METHYLPREDNISOLONE 40 MG INJ CPT-4: J1030 03/04/2014 TRIAMCINOLONE ACET INJ NOS CPT-4: J3301 03/04/2014 CEFTRIAXONE SODIUM INJECTION CPT-4: J0696 03/04/2014 THER/PROPH/DIAG INJ SC/IM CPT-4: 63970 03/04/2014 TDAP VACCINE 7 YRS/> IM CPT-4: 49896 02/27/2014 IMMUNIZATION ADMIN CPT-4: 82594 02/27/2014 DESTRUCT PREMALG LESION (Cryosurgery) CPT-4: 90323 DESTRUCT PREMALG LES 2-14 CPT-4: 76590 01/13/2014 THER/PROPH/DIAG INJ SC/IM CPT-4: 60510 10/21/2013 METHYLPREDNISOLONE 40 MG INJ CPT-4: J1030 10/21/2013 TRIAMCINOLONE ACET INJ NOS CPT-4: J3301 10/21/2013 CEFTRIAXONE SODIUM INJECTION CPT-4: J0696 08/27/2013 THER/PROPH/DIAG INJ SC/IM CPT-4: 31177 08/27/2013 THER/PROPH/DIAG INJ SC/IM CPT-4: 68401 08/27/2013 METHYLPREDNISOLONE 40 MG INJ CPT-4: J1030 08/27/2013 TRIAMCINOLONE ACET INJ NOS CPT-4: J3301 08/27/2013 THER/PROPH/DIAG INJ SC/IM CPT-4: 00533 06/23/2013 METHYLPREDNISOLONE 40 MG INJ CPT-4: J1030 06/23/2013 TRIAMCINOLONE ACET INJ NOS CPT-4: J3301 06/23/2013 THER/PROPH/DIAG INJ SC/IM CPT-4: 29800 05/26/2013 METHYLPREDNISOLONE 40 MG INJ CPT-4: J1030 05/26/2013 TRIAMCINOLONE ACET INJ NOS CPT-4: J3301 05/26/2013 ROUTINE VENIPUNCTURE CPT-4: 91876 03/05/2013 ASSAY OF FREE THYROXINE CPT-4: 81035 03/05/2013 ASSAY THYROID STIM HORMONE CPT-4: 23273 03/05/2013 COMPREHEN METABOLIC PANEL CPT-4: 48140 03/05/2013 COMPLETE CBC W/AUTO DIFF WBC CPT-4: 53329 03/05/2013 A1C GLYCOSYLATED HEMOGLOBIN TEST CPT-4: 93182 013 DRAIN/INJECT JOINT/BURSA CPT-4: 99710 12/04/2012 METHYLPREDNISOLONE 40 MG INJ CPT-4: J1030 12/04/2012 TRIAMCINOLONE ACET INJ NOS CPT-4: J3301 12/04/2012 CEFTRIAXONE SODIUM INJECTION CPT-4: J0696 11/21/2012 THER/PROPH/DIAG INJ SC/IM CPT-4: 80106 11/21/2012 THER/PROPH/DIAG INJ SC/IM CPT-4: 76541 10/14/2012 METHYLPREDNISOLONE 40 MG INJ CPT-4: J1030 10/14/2012 TRIAMCINOLONE ACET INJ NOS CPT-4: J3301 10/14/2012 URINALYSIS NONAUTO W/O SCOPE CPT-4: 35970 09/27/2012 ROUTINE VENIPUNCTURE CPT-4: 89303 09/25/2012 ASSAY OF FREE THYROXINE CPT-4: 90677 09/25/2012 ASSAY THYROID STIM HORMONE CPT-4: 18777 09/25/2012 COMPREHEN METABOLIC PANEL CPT-4: 24862 09/25/2012 COMPLETE CBC W/AUTO DIFF WBC CPT-4: 93956 09/25/2012 C-REACTIVE PROTEIN CPT-4: 70537 09/25/2012 THER/PROPH/DIAG INJ SC/IM CPT-4: 45924 08/29/2012 METHYLPREDNISOLONE 40 MG INJ CPT-4: J1030 08/29/2012 TRIAMCINOLONE ACET INJ NOS CPT-4: J3301 08/29/2012 DESTRUCT PREMALG LESION (Cryosurgery) CPT-4: 32169 THER/PROPH/DIAG INJ SC/IM CPT-4: 13518 05/06/2012 METHYLPREDNISOLONE 40 MG INJ CPT-4: J1030 05/06/2012 TRIAMCINOLONE ACET INJ NOS CPT-4: J3301 05/06/2012 VITAMIN B 12 FOLIC ACID CPT-4: 27542|73273 05/06/2012 RBC SED RATE AUTOMATED CPT-4: 16660 05/06/2012 ROUTINE VENIPUNCTURE CPT-4: 77040 05/06/2012 ASSAY OF FREE THYROXINE CPT-4: 94854 05/06/2012 ASSAY THYROID STIM HORMONE CPT-4: 50315 05/06/2012 COMPREHEN METABOLIC PANEL CPT-4: 23925 05/06/2012 COMPLETE CBC W/AUTO DIFF WBC CPT-4: 45356 05/06/2012 ASSAY OF BLOOD/URIC ACID CPT-4: 22524 05/06/2012 THER/PROPH/DIAG INJ SC/IM CPT-4: 75422 03/19/2012 KETOROLAC TROMETHAMINE INJ CPT-4: J1885 03/19/2012 KETOROLAC TROMETHAMINE INJ CPT-4: J1885 01/30/2012 THER/PROPH/DIAG INJ SC/IM CPT-4: 49284 01/30/2012 PROMETHAZINE HCL INJECTION CPT-4: J2550 01/30/2012 THER/PROPH/DIAG INJ SC/IM CPT-4: 94790 01/24/2012 METHYLPREDNISOLONE 40 MG INJ CPT-4: J1030 01/24/2012 TRIAMCINOLONE ACET INJ NOS CPT-4: J3301 01/24/2012 THER/PROPH/DIAG INJ SC/IM CPT-4: 29973 09/13/2011 KETOROLAC TROMETHAMINE INJ CPT-4: J1885 09/13/2011 THER/PROPH/DIAG INJ SC/IM CPT-4: 51197 09/13/2011 PROMETHAZINE HCL INJECTION CPT-4: J2550 09/13/2011 CEFTRIAXONE SODIUM INJECTION CPT-4: J0696 07/20/2011 THER/PROPH/DIAG INJ SC/IM CPT-4: 93364 07/20/2011 THER/PROPH/DIAG INJ SC/IM CPT-4: 32932 07/20/2011 METHYLPREDNISOLONE INJECTION CPT-4: J2930 07/20/2011 URINALYSIS NONAUTO W/O SCOPE CPT-4: 93881 05/09/2011 CEFTRIAXONE SODIUM INJECTION CPT-4: J0696 05/09/2011 THER/PROPH/DIAG INJ SC/IM CPT-4: 89610 05/09/2011 THER/PROPH/DIAG INJ SC/IM CPT-4: 41142 05/09/2011 PROMETHAZINE HCL INJECTION CPT-4: J2550 05/09/2011 HYDRATION IV INFUSION INIT CPT-4: 66804 05/09/2011 DESTRUCT PREMALG LESION (Cryosurgery) CPT-4: 07495 DESTRUCT PREMALG LES 2-14 CPT-4: 55510 07/19/2010 REMOVAL OF SKIN TAGS <W/15 CPT-4: 26439 05/30/2010 THER/PROPH/DIAG INJ SC/IM CPT-4: 71209 04/05/2010 CEFTRIAXONE SODIUM INJECTION CPT-4: J0696 04/05/2010 TRIAMCINOLONE ACET INJ NOS CPT-4: J3301 04/05/2010 METHYLPREDNISOLONE 40 MG INJ CPT-4: J1030 04/05/2010 THER/PROPH/DIAG INJ SC/IM CPT-4: 90149 04/05/2010 TRIAMCINOLONE ACET INJ NOS CPT-4: J3301 03/09/2010 METHYLPREDNISOLONE 40 MG INJ CPT-4: J1030 03/09/2010 THER/PROPH/DIAG INJ SC/IM CPT-4: 67596 03/09/2010 THER/PROPH/DIAG INJ SC/IM CPT-4: 00539 03/09/2010 CEFTRIAXONE SODIUM INJECTION CPT-4: J0696 03/09/2010 [...] 1: 132/80 Code: 8480-6 BMI: 35.8 Code: 32154-2 Heart Rate 1: 88 bpm Height: 5'4" Respiratory Rate: 20 bpm SpO2: 95% Tempera ture: 36.9 (C) / 98.5 (F) Weight: 210 lbs 05/28/2019 Blood Pressure 1: 126/82 Code: 8480-6 BMI: 35.0 Code: 46014-4 Heart Rate 1: 88 bpm Height: 5'4" [...] 1: 128/90 Code: 8480-6 BMI: 37.2 Code: 26802-6 Heart Rate 1: 84 bpm Height: 5'4" Respiratory Rate: 20 bpm SpO2: 95% Tempera ture: 36.6 (C) / 97.8 (F) Weight: 217 lbs 08/27/2018 Blood Pressure 1: 128/88 Code: 8480-6 BMI: 38.3 Code: 37397-7 Heart Rate 1: 84 bpm Height: 5'4" [...] 1: 119/72 Code: 8480-6 BMI: 37.4 Code: 21895-7 Heart Rate 1: 82 bpm Height: 5'4" Respiratory Rate: 12 bpm SpO2: 94% Tempera ture: 35.2 (C) / 95.4 (F) Weight: 218 lbs 12/18/2017 Blood Pressure 1: 128/86 Code: 8480-6 BMI: 37.8 Code: 11632-0 Heart Rate 1: 84 bpm Height: 5'4" [...] 1: 128/82 Code: 8480-6 BMI: 35.5 Code: 92002-3 Heart Rate 1: 84 bpm Height: 5'4" [...] 1: 128/82 Code: 8480-6 BMI: 30.2 Code: 24504-7 Heart Rate 1: 80 bpm Height: 5'4" [...] 1: 128/86 Code: 8480-6 BMI: 32.8 Code: 35596-3 Heart Rate 1: 66 bpm Height: 5'4" Respiratory Rate: 18 bpm Temperature: 36 .3 (C) / 97.3 (F) Weight: 191 lbs 06/23/2013 Blood Pressure 1: 132/94 Code: 8480-6 BMI: 34.0 Code: 13836-2 Heart Rate 1: 84 bpm Height: 5'4" Respiratory Rate: 20 bpm Temperature: 36 .8 (C) / 98.2 (F) Weight: 198 lbs 05/26/2013 Blood Pressure 1: 114/80 Code: 8480-6 BMI: 35.0 Code: 01463-1 Heart Rate 1: 80 bpm Height: 5'4" Respiratory Rate: 20 bpm Temperature: 36 .4 (C) / 97.6 (F) Weight: 204 lbs 04/16/2013 Blood Pressure 1: 114/82 Code: 8480-6 BMI: 36.7 Code: 72034-6 Heart Rate 1: 84 bpm Height: 5'4" Respiratory Rate: 20 bpm Temperature: 36 .7 (C) / 98.0 (F) Weight: 214 lbs 03/05/2013 Blood Pressure 1: 136/90 Code: 8480-6 BMI: 37.1 Code: 31876-1 Heart Rate 1: 84 bpm Height: 5'4" [...] 1: 168/114 Code: 8480-6 BMI: 36.2 Code: 76207-0 Heart Rate 1: 104 bpm Height: 5'4" Respiratory Rate: 20 bpm Temperature: 36 .8 (C) / 98.2 (F) Weight: 211 lbs 11/22/2012 Blood Pressure 1: 128/90 Code: 8480-6 Heart Rate 1: 88 bpm Respiratory Rate: 20 bpm SpO2: 96% Temperature: 36.8 (C) / 98.2 (F) 11/21/2012 Blood Pressure 1: 146/100 Code: 8480-6 BMI: 35.7 Code: 30557-4 Heart Rate 1: 96 bpm Height: 5'4" [...] 1: 138/100 Code: 8480-6 BMI: 35.7 Code: 07815-7 Heart Rate 1: 96 bpm Height: 5'4" Respiratory Rate: 20 bpm Temperature: 36 .8 (C) / 98.2 (F) Weight: 208 lbs 05/06/2012 Blood Pressure 1: 154/102 Code: 8480-6 BMI: 34.7 Code: 68807-8 Heart Rate 1: 116 bpm Height: 5'4" Respiratory Rate: 20 bpm Temperature: 36 .8 (C) / 98.2 (F) Weight: 202 lbs 04/03/2012 Blood Pressure 1: 134/94 Code: 8480-6 BMI: 34.8 Code: 70058-3 Heart Rate 1: 108 bpm Height: 5'4" Respiratory Rate: 20 bpm Temperature: 36 .8 (C) / 98.2 (F) Weight: 203 lbs 03/19/2012 Blood Pressure 1: 148/106 Code: 8480-6 BMI: 35.0 Code: 66003-6 Heart Rate 1: 100 bpm Height: 5'4" Respiratory Rate: 20 bpm Temperature: 36 .6 (C) / 97.9 (F) Weight: 204 lbs 02/22/2012 Blood Pressure 1: 146/94 Code: 8480-6 He art Rate 1: 88 bpm 02/21/2012 Blood Pressure 1: 172/120 Code: 8480-6 B lood Pressure 2: 152/106 Code: 8480-6 Heart Rate 1: 116 bpm 02/20/2012 Blood Pressure 1: 160/100 Code: 8480-6 BMI: 32.0 Code: 56691-6 Heart Rate 1: 84 bpm Height: 5'7" Temperature: 36.5 (C) / 97.7 (F) Weight: 204 lbs 01/30/2012 Blood Pressure 1: 152/110 Code: 8480-6 BMI: 32.0 Code: 02103-2 Heart Rate 1: 116 bpm Height: 5'7" Respiratory Rate: 20 bpm Temperature: 37 .0 (C) / 98.6 (F) Weight: 204 lbs 01/24/2012 Blood Pressure 1: 146/100 Code: 8480-6 BMI: 32.0 Code: 62146-8 Heart Rate 1: 100 bpm Height: 5'7" Respiratory Rate: 20 bpm Temperature: 36 .7 (C) / 98.0 (F) Weight: 204 lbs 01/10/2012 Blood Pressure 1: 156/94 Code: 8480-6 BMI: 32.6 Code: 56988-7 Heart Rate 1: 72 bpm Height: 5'7" Respiratory Rate: 20 bpm Temperature: 36 .8 (C) / 98.2 (F) Weight: 208 lbs 12/11/2011 Blood Pressure 1: 146/100 Code: 8480-6 Heart Rat e 1: 116 bpm Height: 5'7" Respiratory Rate: 20 bpm Temperature: 36.9 (C) / 98.4 (F) We ight: 11/09/2011 Blood Pressure 1: 148/96 Code: 8480-6 BMI: 32.1 Code: 29169-8 Heart Rate 1: 116 bpm Height: 5'7" Respiratory Rate: 20 bpm Temperature: 36 .7 (C) / 98.0 (F) Weight: 205 lbs 09/13/2011 Blood Pressure 1: 126/88 Code: 8480-6 Heart Rate 1: 88 bpm Height: 5'7" Respiratory Rate: 20 bpm Temperature: 36.9 (C) / 98.4 (F) We ight: 08/31/2011 Blood Pressure 1: 118/82 Code: 8480-6 BMI: 32.0 Code: 42303-1 Heart Rate 1: 80 bpm Height: 5'7" Temperature: 36.4 (C) / 97.6 (F) Weight: 204 lbs 07/06/2011 Blood Pressure 1: 128/86 Code: 8480-6 BMI: 30.9 Code: 80724-5 Heart Rate 1: 92 bpm Height: 5'7" Respiratory Rate: 20 bpm Temperature: 36 .9 (C) / 98.4 (F) Weight: 197 lbs 06/06/2011 Blood Pressure 1: 112/74 Code: 8480-6 BMI: 31.0 Code: 64611-8 Heart Rate 1: 72 bpm Height: 5'7" [...] 1: 128/92 Code: 8480-6 BMI: 33.6 Code: 00198-9 Heart Rate 1: 104 bpm Height: 5'4" [...] Check-up Encounters Encounter Performer Location Codes Date ([id number]) OFFICE/OUTPATIENT VISIT EST Diagnosis: Essential (primary) hypertension[ICD10: I10] Diagnosis: Type 2 diabetes mellitus with hyperglycemia[ICD10: E11.65] Diagnosis: Allergic rhinitis[ICD10: J30.9] María Elena JUARES [employer] CPT-4: 40366 01/13/2020 ([id number]) OFFICE/OUTPATIENT VISIT EST Diagnosis: Type 2 diabetes mellitus with hyperglycemia[ICD10: E11.65] María Elena JUARES [employer] CPT-4: 97728 11/20/2019 ([id number]) OFFICE/OUTPATIENT VISIT EST Diagnosis: Ingrowing nail[ICD10: L60.0] Diagnosis: Type 2 diabetes mellitus with hyperglycemia[ICD10: E11.65] Kathleen JUARES [employer] CPT-4: 16497 10/07/2019 ([id number]) OFFICE/OUTPATIENT VISIT EST Diagnosis: DM w/o complication type II, uncontrolled[ICD10: E11.65] Diagnosis: Hypertriglyceridemia[ICD10: E78.1] Diagnosis: Essential hypertension[ICD10: I10] María Elena JEAN Fabiola APPIAH DO [facility] CPT-4: 55867 09/30/2019 ([id number]) NURSE/OUTPATIENT VISIT EST Diagnosis: Essential (primary) hypertension[ICD10: I10] Diagnosis: Cervicalgia[ICD10: M54.2] Diagnosis: Hyperglycemia, unspecified[ICD10: R73.9] Diagnosis: Mixed hyperlipidemia[ICD10: E78.2] María Elena JEAN Fabiola APPIAH [facility] CPT-4: 08478 09/29/2019 ([id number]) OFFICE/OUTPATIENT VISIT EST Diagnosis: Essential (primary) hypertension[ICD10: I10] Diagnosis: Fall from bed, sequela[ICD10: W06.XXXS] María Elena REED LucioJj TD [facility] CPT-4: 07390 05/28/2019 ([id number]) NURSE/OUTPATIENT VISIT EST Diagnosis: Essential (primary) hypertension[ICD10: I10] María Elena MONTEROQUELINE LucioJj TD [facility] CPT-4: 14912 05/19/2019 ([id number]) OFFICE/OUTPATIENT VISIT EST Diagnosis: Essential (primary) hypertension[ICD10: I10] Diagnosis: Type 2 diabetes mellitus with hyperglycemia[ICD10: E11.65] Diagnosis: Intervertebral disc disorders with radiculopathy, 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] Diagnosis: Hormone replacement therapy[ICD10: Z79.890] María Elena JUARES [facility] TD [facility] CPT-4: 57547 01/22/2019 ([id number]) OFFICE/OUTPATIENT VISIT EST Diagnosis: Essential (primary) hypertension[ICD10: I10] Diagnosis: Type 2 diabetes mellitus with hyperglycemia[ICD10: E11.65] María Elenagael MONTEROQUELINE LucioJj TD [facility] CPT-4: 12291 09/30/2018 ([id number]) OFFICE/OUTPATIENT VISIT EST Diagnosis: Pain in left elbow[ICD10: M25.522] Diagnosis: Acute stress reaction[ICD10: F43.0] Diagnosis: Primary insomnia[ICD10: F51.01] Diagnosis: Abnormal weight gain[ICD10: R63.5] María Elenagael APPIAH [facility] CPT-4: 13460 08/27/2018 ([id number]) OFFICE/OUTPATIENT VISIT EST Diagnosis: Acute recurrent sinusitis, unspecified[ICD10: J01.91] Diagnosis: Follicular disorder, unspecified[ICD10: L73.9] Diagnosis: Tinea corporis[ICD10: B35.4] María Elena APPIAH [facility] CPT-4: 02782 08/09/2018 ([id number]) OFFICE/OUTPATIENT VISIT EST Diagnosis: Tinea corporis[ICD10: B35.4] Diagnosis: Anxiety disorder, unspecified[ICD10: F41.9] Diagnosis: Menopausal and female climacteric states[ICD10: N95.1] María Elena APPIAH [facility] CPT-4: 97470 07/22/2018 ([id number]) NURSE/OUTPATIENT VISIT EST Diagnosis: Cellulitis of right toe[ICD10: L03.031] [facility] CPT-[facility]: 28341 06/19/2018 ([id number]) OFFICE/OUTPATIENT VISIT EST Diagnosis: Cellulitis of right toe[ICD10: L03.031] Kathleen APPIAH [facility] CPT-4: 19211 06/17/2018 ([id number]) OFFICE/OUTPATIENT VISIT EST Diagnosis: Migraine without aura, intractable, without status migrainosus[ICD10: G43.019] Diagnosis: Zoster without complications[ICD10: B02.9] Kathleen APPIAH [facility] CPT-4: 11317 05/16/2018 ([id number]) OFFICE/OUTPATIENT VISIT EST Diagnosis: Cellulitis of right lower limb[ICD10: L03.115] Kathleen APPIAH [facility] CPT-4: 73860 03/20/2018 ([id number]) OFFICE/OUTPATIENT VISIT EST Diagnosis: Cellulitis of right lower limb[ICD10: L03.115] Kathleen APPIAH [facility] CPT-4: 89646 03/18/2018 ([id number]) OFFICE/OUTPATIENT VISIT EST Diagnosis: Cellulitis of right lower limb[ICD10: L03.115] Kathleen APPIAH DO [facility] CPT-4: 61802 03/15/2018 ([id number]) OFFICE/OUTPATIENT VISIT EST Diagnosis: Acute sinusitis, unspecified[ICD10: J01.90] Kathleen APPIAH DO [facility] CPT-4: 19522 02/11/2018 ([id number]) NURSE/OUTPATIENT VISIT EST Diagnosis: Otitis media, unspecified, right ear[ICD10: H66.91] María Elena APPIAH DO [facility] CPT-4: 76353 02/01/2018 ([id number]) OFFICE/OUTPATIENT VISIT EST Diagnosis: Acute suppurative otitis media without spontaneous rupture of ear drum, left ear[ICD10: H66.002] Diagnosis: Abnormal weight gain[ICD10: R63.5] Diagnosis: Intervertebral disc disorders with radiculopathy, 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] Kathleen APPIAH DO [facility] CPT-4: 99 214 01/30/2018 ([id number]) PREV VISIT EST AGE 40-64 Diagnosis: Encounter for general adult medical examination without abnormal findings[ICD10: Z00.00] Diagnosis: Essential (primary) hypertension[ICD10: I10] Diagnosis: Mixed hyperlipidemia[ICD10: E78.2] Diagnosis: Type 2 diabetes mellitus with hyperglycemia[ICD10: E11.65] Diagnosis: 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] María Elena APPIAH DO [facility] CPT-4: 54975 12/18/2017 ([id number]) OFFICE/OUTPATIENT VISIT EST Diagnosis: Cellulitis of right toe[ICD10: L03.031] Diagnosis: Mixed hyperlipidemia[ICD10: E78.2] Diagnosis: Essential (primary) hypertension[ICD10: I10] Diagnosis: Hyperglycemia, unspecified[ICD10: R73.9] Diagnosis: Nontoxic goiter, 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] María Elena APPIAH DO [facility] CPT-4: 29660 12/10/2017 ([id number]) OFFICE/OUTPATIENT VISIT EST Diagnosis: Cellulitis of right toe[ICD10: L03.031] Diagnosis: Acute sinusitis, unspecified[ICD10: J01.90] Kathleen APPIAH DO [facility] CPT-4: 16980 12/07/2017 OFFICE/OUTPATIENT VISIT EST Diagnosis: Acute maxillary sinusitis, unspecified[ICD10: J01.00] Kathleen APPIAH DO [facility] CPT-4: 40424 10/08/2017 ([id number]) OFFICE/OUTPATIENT VISIT EST Diagnosis: Cellulitis of left toe[ICD10: L03.032] María Elena APPIAH DO [facility] CPT-4: 79870 09/21/2017 ([id number]) OFFICE/OUTPATIENT VISIT EST Diagnosis: Insomnia, unspecified[ICD10: G47.00] Diagnosis: Major depressive disorder, single episode, unspecified[ICD10: F32.9] Diagnosis: Anxiety disorder, unspecified[ICD10: F41.9] Diagnosis: Cellulitis of left toe[ICD10: L03.032] Diagnosis: Snoring[ICD10: R06.83] Kathleen APPIAH DO [facility] CPT-4: 41409 09/20/2017 ([id number]) OFFICE/OUTPATIENT VISIT EST Diagnosis: Cellulitis of left toe[ICD10: L03.032] María Elena APPIAH DO [facility] CPT-4: 01897 07/19/2017 OFFICE/OUTPATIENT VISIT EST Diagnosis: Chronic sinusitis, unspecified[ICD10: J32.9] Diagnosis: Generalized hyperhidrosis[ICD10: R61] Kathleen APPIAH DO [facility] CPT-4: 43907 06/27/2017 ([id number]) OFFICE/OUTPATIENT VISIT EST Diagnosis: Intervertebral disc disorders with radiculopathy, 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] Diagnosis: Primary insomnia[ICD10: F51.01] Diagnosis: Other fatigue[ICD10: R53.83] María Elena APPIAH DO [facility] CPT-4: 66213 04/10/2017 ([id number]) OFFICE/OUTPATIENT VISIT EST Diagnosis: Primary insomnia[ICD10: F51.01] Diagnosis: Localized edema[ICD10: R60.0] Diagnosis: 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] María Elena APPIAH DO [facility] CPT-4: 26485 12/13/2016 ([id number]) OFFICE/OUTPATIENT VISIT EST Diagnosis: Primary insomnia[ICD10: F51.01] Diagnosis: Cyanosis[ICD10: R23.0] María Elena Bazzi [facility] CPT-4: 10149 11/01/2016 ([id number]) PREV VISIT EST AGE 40-64 Diagnosis: Encounter for gynecological examination (general) (routine) without abnormal findings[ICD10: Z01.419] Diagnosis: Encounter for routine child health examination without abnormal findings[ICD10: Z00.129] María Elena APPIAH [facility] CPT-4: 05492 10/17/2016 ([id number]) OFFICE/OUTPATIENT VISIT EST Diagnosis: Other seasonal allergic rhinitis[ICD10: J30.2] María Elena APPIAH [employer] CPT-4: 70320 10/10/2016 ([id number]) OFFICE/OUTPATIENT VISIT EST Diagnosis: Pain in left arm[ICD10: M79.602] Diagnosis: Contact with and (suspected) exposure to potentially hazardous body fluids[ICD10: Z77.21] Diagnosis: 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, 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] Diagnosis: Unspecified open wound, right foot, sequela[ICD10: S91.301S] María Elena APPIAH DO [facility] CPT-4: 64686 09/19/2016 ([id number]) OFFICE/OUTPATIENT VISIT EST Diagnosis: Chronic sinusitis, unspecified[ICD10: J32.9] Diagnosis: Allergic rhinitis due to pollen[ICD10: J30.1] María Elena APPIAH [employer] CPT-4: 85777 08/24/2016 ([id number]) OFFICE/OUTPATIENT VISIT EST Diagnosis: Acute bronchitis, unspecified[ICD10: J20.9] María Elena APPIAH DO [facility] CPT-4: 32279 08/16/2016 ([id number]) OFFICE/OUTPATIENT VISIT EST Diagnosis: Otitis media, unspecified, right ear[ICD10: H66.91] Diagnosis: Acute bronchitis, unspecified[ICD10: J20.9] María Elena APPIAH DO [facility] CPT-4: 57985 08/10/2016 ([id number]) OFFICE/OUTPATIENT VISIT EST Diagnosis: Acute recurrent sinusitis, unspecified[ICD10: J01.91] Diagnosis: Allergic rhinitis due to pollen[ICD10: J30.1] María Elena APPIAH DO [facility] CPT-4: 35241 08/02/2016 ([id number]) OFFICE/OUTPATIENT VISIT EST Diagnosis: Pain in unspecified joint[ICD10: M25.50] María Elena APPIAH DO [facility] CPT-4: 63430 07/27/2016 OFFICE/OUTPATIENT VISIT EST Diagnosis: 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] Diagnosis: Acute recurrent sinusitis, unspecified[ICD10: J01.91] Diagnosis: Other fatigue[ICD10: R53.83] Diagnosis: Primary insomnia[ICD10: F51.01] Diagnosis: Pain in unspecified joint[ICD10: M25.50] María Elena APPIAH [facility] CPT-4: 23557 07/20/2016 ([id number]) OFFICE/OUTPATIENT VISIT EST Diagnosis: Blister (nonthermal), left great toe, initial encounter[ICD10: S90.422A] Loan APPIAH [facility] CPT-4: 29946 ([id number]) OFFICE/OUTPATIENT VISIT EST Diagnosis: Acute recurrent sinusitis, unspecified[ICD10: J01.91] María Elena APPIAH DO [facility] CPT-4: 25900 05/25/2016 ([id number]) OFFICE/OUTPATIENT VISIT EST Diagnosis: Acute sinusitis, unspecified[ICD10: J01.90] María Elenamarcella APPIAH DO [facility] CPT-4: 24834 04/26/2016 ([id number]) OFFICE/OUTPATIENT VISIT EST Diagnosis: Flushing[ICD10: R23.2] Diagnosis: Primary insomnia[ICD10: F51.01] María Elena APPAIH DO [facility] CPT-4: 58970 03/02/2016 ([id number]) OFFICE/OUTPATIENT VISIT EST Diagnosis: Other seasonal allergic rhinitis[ICD10: J30.2] Loan APPIAH DO [facility] CPT-4: 25664 02/09/2016 ([id number]) OFFICE/OUTPATIENT VISIT EST Diagnosis: Primary insomnia[ICD10: F51.01] Diagnosis: Urinary tract infection, site not specified[ICD10: N39.0] María Elena APPIAH DO [facility] CPT-4: 68716 01/24/2016 ([id number]) OFFICE/OUTPATIENT VISIT EST Diagnosis: Other specified disorders of Eustachian tube, bilateral[ICD10: H69.83] Diagnosis: Allergic rhinitis, unspecified[ICD10: J30.9] Loan APPIAH DO [facility] CPT-4: 24979 12/23/2015 ([id number]) OFFICE/OUTPATIENT VISIT EST Diagnosis: Acute recurrent sinusitis, unspecified[ICD10: J01.91] Diagnosis: 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] Diagnosis: Allergic rhinitis, unspecified[ICD10: J30.9] María Elena APPIAH DO [facility] CPT-4: 97010 12/08/2015 ([id number]) OFFICE/OUTPATIENT VISIT EST Diagnosis: Allergic rhinitis, unspecified[ICD10: J30.9] Diagnosis: Pain in unspecified joint[ICD10: M25.50] María Elena APPIAH DO [facility] CPT-4: 44359 10/07/2015 ([id number]) OFFICE/OUTPATIENT VISIT EST Diagnosis: Essential (primary) hypertension[ICD10: I10] María Elena APPIAH DO [facility] CPT-4: 83716 10/06/2015 OFFICE/OUTPATIENT VISIT EST Diagnosis: Localized enlarged lymph nodes[ICD10: R59.0] Diagnosis: Local infection of the skin and subcutaneous tissue, unspecified[ICD10: L08.9] June APPIAH DO [facility] CPT- 4: 81452 09/14/2015 ([id number]) OFFICE/OUTPATIENT VISIT EST Diagnosis: Essential (primary) hypertension[ICD10: I10] Diagnosis: Actinic keratosis[ICD10: L57.0] María Elena APPIAH DO [facility] CPT-4: 95281 09/07/2015 ([id number]) OFFICE/OUTPATIENT VISIT EST Diagnosis: Essential (primary) hypertension[ICD10: I10] Diagnosis: Acute stress reaction[ICD10: F43.0] María Elena APPIAH [facility] CPT-4: 61993 08/18/2015 ([id number]) OFFICE/OUTPATIENT VISIT EST Diagnosis: Essential (primary) hypertension[ICD10: I10] María Elena APPIAH DO [facility] CPT-4: 33330 07/07/2015 ([id number]) OFFICE/OUTPATIENT VISIT EST Diagnosis: Essential (primary) hypertension[ICD10: I10] María Elena APPIAH DO [facility] CPT-4: 65884 06/24/2015 ([id number]) OFFICE/OUTPATIENT VISIT EST Diagnosis: Essential (primary) hypertension[ICD10: I10] María Elena APPIAH DO [facility] CPT-4: 91015 06/21/2015 ([id number]) OFFICE/OUTPATIENT VISIT EST Diagnosis: Essential (primary) hypertension[ICD10: I10] Diagnosis: Mixed hyperlipidemia[ICD10: E78.2] Diagnosis: Acute stress reaction[ICD10: F43.0] Diagnosis: Primary insomnia[ICD10: F51.01] María Elena APPIAH DO [facility] CPT-4: 07571 06/16/2015 ([id number]) OFFICE/OUTPATIENT VISIT EST Diagnosis: INSOMNIA NOS[ICD9: 780.52] Diagnosis: HYPERTENSION[ICD9: 401.9] Diagnosis: Stress reaction[ICD9: 308.9] María Elena APPIAH DO [facility] CPT-4: 37663 06/02/2015 ([id number]) OFFICE/OUTPATIENT VISIT EST Diagnosis: HYPERTENSION[ICD9: 401.9] Diagnosis: Stress reaction[ICD9: 308.9] María Elena APPIAH DO [facility] CPT-4: 33130 05/20/2015 ([id number]) OFFICE/OUTPATIENT VISIT EST Diagnosis: Skin lesion[ICD9: 709.9] 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 CPT-4: 85748 03/16/2015 OFFICE/OUTPATIENT VISIT EST Diagnosis: Otitis media[ICD9: 382.9] Diagnosis: SINUSITIS, ACUTE[ICD9: 461.9] June Felixdaniella APPIAH DO [facility] CPT-4: 09178 09/11/2014 ([id number]) OFFICE/OUTPATIENT VISIT EST Diagnosis: HYPERLIPIDEMIA NEC/NOS[ICD9: 272.4] María Elena APPIAH DO [facility] CPT-4: 62656 08/31/2014 ([id number]) OFFICE/OUTPATIENT VISIT EST Diagnosis: - I - HYPERTENSION[ICD9: 401.9] Diagnosis: HYPERLIPIDEMIA NEC/NOS[ICD9: 272.4] María Elena APPIAH DO [facility] CPT-4: 70580 08/27/2014 ([id number]) OFFICE/OUTPATIENT VISIT EST Diagnosis: ABDOMINAL PAIN[ICD9: 789.00] Diagnosis: DYSPEPSIA[ICD9: 536.8] Diagnosis: Thoracic back pain[ICD9: 724.1] María Elena APPIAH DO [facility] CPT-4: 10108 07/21/2014 ([id number]) OFFICE/OUTPATIENT VISIT EST Diagnosis: ALLERGIC RHINITIS[ICD9: 477.9] María Elena APPIAH [facility] CPT-4: 87144 07/15/2014 ([id number]) OFFICE/OUTPATIENT VISIT EST Diagnosis: EDEMA[ICD9: 782.3] Diagnosis: Chronic insomnia[ICD9: 780.52] María Elena APPIAH [facility] CPT-4: 75864 05/18/2014 ([id number]) OFFICE/OUTPATIENT VISIT EST Diagnosis: Thyromegaly[ICD9: 240.9] Diagnosis: - I - HYPERTENSION[ICD9: 401.9] Diagnosis: ROUTINE MEDICAL EXAM[ICD9: V70.0] Diagnosis: EDEMA[ICD9: 782.3] María Elena APPIAH [facility] CPT-4: 17323 05/14/2014 OFFICE/OUTPATIENT VISIT EST Diagnosis: BRONCHITIS, ACUTE[ICD9: 466.0] Diagnosis: SINUSITIS, ACUTE[ICD9: 461.9] María Elena APPIAH [facility] CPT-4: 30318 04/21/2014 OFFICE/OUTPATIENT VISIT EST Diagnosis: SINUSITIS, ACUTE[ICD9: 461.9] June Flores [facility] CPT-4: 14088 03/04/2014 ([id number]) OFFICE/OUTPATIENT VISIT EST Diagnosis: VACCINE FOR TDAP[ICD10: Z23] María Elena APPIAH [facility] CPT-4: 74436 02/27/2014 ([id number]) OFFICE/OUTPATIENT VISIT EST Diagnosis: Seborrheic keratoses, inflamed[ICD9: 702.11] Diagnosis: ACTINIC KERATOSIS[ICD9: 702.0] Diagnosis: INSOMNIA NOS[ICD9: 780.52] [facility]PT-[facility]: 19172 01/13/2014 OFFICE/OUTPATIENT VISIT EST 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] Diagnosis: ALLERGIC RHINITIS[ICD9: 477.9] Diagnosis: Serous otitis media[ICD9: 381.4] María Elena ValdesJj TD [facility] CPT-4: 75429 12/24/2013 ([id number]) OFFICE/OUTPATIENT VISIT EST Diagnosis: SINUSITIS, ACUTE[ICD9: 461.9] Diagnosis: ALLERGIC RHINITIS[ICD9: 477.9] 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] María Elena APPIAH [facility] CPT-4: 16713 11/12/2013 ([id number]) OFFICE/OUTPATIENT VISIT EST Diagnosis: ALLERGIC RHINITIS[ICD9: 477.9] Diagnosis: SINUSITIS, ACUTE[ICD9: 461.9] María Elena APPIAH [facility] CPT-4: 26693 10/21/2013 ([id number]) OFFICE/OUTPATIENT VISIT EST Diagnosis: ASYMPTOMATIC VARICOSE VEINS[ICD9: 454.9] Diagnosis: INSOMNIA NOS[ICD9: 780.52] María Elena PANDYA [facility] CPT-4: 00546 09/22/2013 OFFICE/OUTPATIENT VISIT EST Diagnosis: SINUSITIS, ACUTE[ICD9: 461.9] June APPIAH 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 CPT-4: 47394 08/04/2013 ([id number]) OFFICE/OUTPATIENT VISIT EST Diagnosis: Cervicalgia[ICD9: 723.1] Diagnosis: SPASM OF MUSCLE[ICD9: 728.85] Diagnosis: CEPHALGIA, TENSION[ICD9: 307.81] María Elena APPIAH [facility] CPT-4: 62425 07/23/2013 ([id number]) OFFICE/OUTPATIENT VISIT EST 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] Diagnosis: ALLERGIC RHINITIS[ICD9: 477.9] María Elena APPIAH [facility] CPT-4: 14996 06/23/2013 ([id number]) OFFICE/OUTPATIENT VISIT EST Diagnosis: ALLERGIC RHINITIS[ICD9: 477.9] Diagnosis: ACUTE SEROUS OTITIS MEDIA[ICD9: 381.01] 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 CPT-4: 33481 05/26/2013 ([id number]) OFFICE/OUTPATIENT VISIT EST Diagnosis: HYPERTENSION[ICD9: 401.9] Diagnosis: EDEMA[ICD9: 782.3] Diagnosis: Serous otitis media[ICD9: 381.4] María Elena JUARES LucioJj TD [facility] CPT-4: 43611 04/16/2013 ([id number]) OFFICE/OUTPATIENT VISIT EST Diagnosis: SINUSITIS, ACUTE[ICD9: 461.9] Diagnosis: ALLERGIC RHINITIS[ICD9: 477.9] Diagnosis: EDEMA[ICD9: 782.3] Diagnosis: Thyromegaly[ICD9: 240.9] Diagnosis: MALAISE AND FATIGUE[ICD9: 780.79] María Elena Lopez LucioJj MARIVEL [facility] CPT-4: 83368 03/05/2013 ([id number]) OFFICE/OUTPATIENT VISIT EST Diagnosis: PAIN, LOWER BACK[ICD9: 724.2] Diagnosis: SPASM OF MUSCLE[ICD9: 728.85] María Elena [facility]ARES [facility] CPT-[facility]: 99094 12/23/2012 OFFICE/OUTPATIENT VISIT EST Diagnosis: Low back pain[ICD9: 724.2] Lashawn Hicks [facility] CPT-[facility]: 77323 12/16/2012 ([id number]) OFFICE/OUTPATIENT VISIT EST Diagnosis: PAIN, LOWER BACK[ICD9: 724.2] Diagnosis: SCIATICA[ICD9: 724.3] Diagnosis: Lumbar herniated disc[ICD9: 722.10] María Elena COLON LucioJj [facility] CPT-4: 60320 12/09/2012 ([id number]) OFFICE/OUTPATIENT VISIT EST Diagnosis: PAIN, LOWER BACK[ICD9: 724.2] Diagnosis: SCIATICA[ICD9: 724.3] Diagnosis: LUMBAR DISC DISPLACEMENT[ICD9: 722.10] María Elena MONTEROLui APPIAH DO [facility] CPT-4: 63986 12/04/2012 OFFICE/OUTPATIENT VISIT EST Diagnosis: Pneumonia[ICD9: 486] Mary SerranoRustam MARÍA ELENA APPIAH DO [facility] CPT-4: 96835 11/22/2012 ([id number]) OFFICE/OUTPATIENT VISIT EST Diagnosis: PNEUMONIA, ORGANISM[ICD9: 486] Diagnosis: Exacerbation of RAD (reactive airway disease)[ICD9: 493.92] María Elena Ortamaryjane MARÍA ELENA APPIAH DO [facility] CPT-4: 02847 11/21/2012 OFFICE/OUTPATIENT VISIT EST Diagnosis: HYPERTENSION[ICD9: 401.9] Diagnosis: Cephalgia[ICD9: 784.0] Lashawn Eckert MARÍA ELENA APPIAH DO [facility] CPT-4: 01084 10/29/2012 ([id number]) OFFICE/OUTPATIENT VISIT EST Diagnosis: MALAISE AND FATIGUE[ICD9: 780.79] Diagnosis: ARTHRALGIA-MULTIPLE SITES[ICD9: 719.49] María Elena Seamusmindimaryjane APPIAH DO [facility] CPT-4: 08792 10/14/2012 ([id number]) OFFICE/OUTPATIENT VISIT EST Diagnosis: URINARY FREQUENCY[ICD9: 788.41] María Elena Td APPIAH DO [facility] CPT-4: 10423 09/27/2012 ([id number]) OFFICE/OUTPATIENT VISIT EST Diagnosis: MALAISE AND FATIGUE[ICD9: 780.79] Diagnosis: ARTHRALGIA-MULTIPLE SITES[ICD9: 719.49] María Elena Seamusabbey KYLAH APPIAH DO [facility] CPT-4: 07765 09/25/2012 ([id number]) OFFICE/OUTPATIENT VISIT EST Diagnosis: SINUSITIS, ACUTE[ICD9: 461.9] 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] María Elena Seamusabbey MARÍA ELENA APPIAH DO [facility] CPT-4: 24739 08/29/2012 OFFICE/OUTPATIENT VISIT EST Diagnosis: ACTINIC KERATOSIS[ICD9: 702.0] Diagnosis: Inflamed seborrheic keratosis[ICD9: 702.11] Diagnosis: Skin cancer of face[ICD9: 173.31] Diagnosis: HYPERTENSION[ICD9: 401.9] María Elena [facility]YMOUR [facility] CPT-4: 90754 08/12/2012 ([id number]) OFFICE/OUTPATIENT VISIT EST Diagnosis: ARTHRALGIA-MULTIPLE SITES[ICD9: 719.49] Diagnosis: GOUT[ICD9: 274.9] Diagnosis: HYPERTENSION[ICD9: 401.9] Diagnosis: Tachycardia[ICD9: 785.0] María Elena HU KARLOS [facility] CPT-4: 33810 05/06/2012 ([id number]) OFFICE/OUTPATIENT VISIT EST Diagnosis: INSOMNIA NOS[ICD9: 780.52] María Elena PANDYA [facility] CPT-4: 45044 04/03/2012 ([id number]) OFFICE/OUTPATIENT VISIT EST Diagnosis: INSOMNIA NOS[ICD9: 780.52] Diagnosis: HYPERTENSION[ICD9: 401.9] Diagnosis: MIGRAINE NOS/NOT INTRCBL[ICD9: 346.90] María Elena MARIN SJj APPIAH [facility] CPT-4: 25278 03/19/2012 ([id number]) OFFICE/OUTPATIENT VISIT EST Diagnosis: CELLULITIS[ICD9: 682.9] Diagnosis: Ankle pain[ICD9: 719.47] Diagnosis: HYPERTENSION[ICD9: 401.9] María Elena MOJICAR [facility] CPT-4: 22261 02/20/2012 ([id number]) OFFICE/OUTPATIENT VISIT EST Diagnosis: MIGRAINE NOS/NOT INTRCBL[ICD9: 346.90] Diagnosis: Vomiting[ICD9: 787.03] María Elena TANNER R [facility] CPT-4: 64555 01/30/2012 ([id number]) OFFICE/OUTPATIENT VISIT EST Diagnosis: EDEMA[ICD9: 782.3] Diagnosis: HYPERTENSION[ICD9: 401.9] Diagnosis: ALLERGIC RHINITIS[ICD9: 477.9] Diagnosis: ARTHRALGIA-MULTIPLE SITES[ICD9: 719.49] María Elena WAYNDER [facility] CPT-4: 74694 01/24/2012 ([id number]) OFFICE/OUTPATIENT VISIT EST Diagnosis: SPASM OF MUSCLE[ICD9: 728.85] Diagnosis: Thoracic back pain[ICD9: 724.1] Diagnosis: Cervical pain[ICD9: 723.1] María Elena PANDYA [facility] CPT-4: 72281 01/10/2012 OFFICE/OUTPATIENT VISIT EST Diagnosis: PAIN, LOWER BACK[ICD9: 724.2] Diagnosis: LUMBAR DISC DISPLACEMENT[ICD9: 722.10] María Elena Seamusabbey MARLIN APPIAH [facility] CPT-4: 50929 12/11/2011 OFFICE/OUTPATIENT VISIT EST Diagnosis: MIGRAINE NOS/NOT INTRCBL[ICD9: 346.90] Diagnosis: SINUSITIS, ACUTE[ICD9: 461.9] María Elena APPIAH [facility] CPT-4: 60680 11/09/2011 OFFICE/OUTPATIENT VISIT EST Diagnosis: MIGRAINE NOS/NOT INTRCBL[ICD9: 346.90] Diagnosis: LYMPHADENOPATHY[ICD9: 785.6] María Elena APPIAH [facility] CPT-4: 08284 09/13/2011 OFFICE/OUTPATIENT VISIT EST Diagnosis: MALAISE AND FATIGUE[ICD9: 780.79] Diagnosis: ARTHRALGIA-MULTIPLE SITES[ICD9: 719.49] María Elena Seamusabbey MONTERO APARNAGAEL LucioJj TD [facility] CPT-4: 41672 08/31/2011 OFFICE/OUTPATIENT VISIT EST Diagnosis: SINUSITIS, ACUTE[ICD9: 461.9] María Elena Waymindimaryjane ValdesJj TD [facility] CPT-4: 19642 07/20/2011 OFFICE/OUTPATIENT VISIT EST Diagnosis: HYPERTENSION[ICD9: 401.9] Diagnosis: PAIN, LOWER BACK[ICD9: 724.2] Diagnosis: SPASM OF MUSCLE[ICD9: 728.85] María Elena Waymindimaryjane APPIAH [facility] CPT-4: 63563 07/06/2011 OFFICE/OUTPATIENT VISIT EST Diagnosis: MIGRAINE NOS/NOT INTRCBL[ICD9: 346.90] Diagnosis: HYPERTENSION[ICD9: 401.9] María Elena Hicks [facility] CPT-4: 88011 05/22/2011 OFFICE/OUTPATIENT VISIT EST Diagnosis: SINUSITIS, ACUTE[ICD9: 461.9] Diagnosis: MIGRAINE NOS/NOT INTRCBL[ICD9: 346.90] Diagnosis: Dehydration[ICD9: 276.51] Diagnosis: Vomiting[ICD9: 787.03] María Elena Hicks [facility] CPT-4: 94928 05/09/2011 ([id number]) OFFICE/OUTPATIENT VISIT EST María Elena [facility] CPT-4: 04063 02/14/2011 ([id number]) OFFICE/OUTPATIENT VISIT EST María Elena [facility] CPT-4: 10458 02/03/2011 ([id number]) OFFICE/OUTPATIENT VISIT EST María Elena [facility] CPT-4: 46655 01/31/2011 ([id number]) OFFICE/OUTPATIENT VISIT EST María Elena [facility]AC [facility] CPT-4: 00642 01/25/2011 ([id number]) OFFICE/OUTPATIENT VISIT EST María Elena [facility]AAC [facility] CPT-4: 07948 01/18/2011 ([id number]) OFFICE/OUTPATIENT VISIT EST María Elena [facility]AAC [facility] CPT-4: 30288 11/29/2010 ([id number]) OFFICE/OUTPATIENT VISIT, EST María Elena [facility]O [facility] CPT-4: 17092 10/10/2010 ([id number]) OFFICE/OUTPATIENT VISIT, EST María Elena [facility]O [facility] CPT-4: 80852 06/07/2010 ([id number]) OFFICE/OUTPATIENT VISIT, EST María Elena [facility] CPT-4: 34527 04/27/2010 ([id number]) OFFICE/OUTPATIENT VISIT, EST María Elena Waymindimaryjane [facility] CPT-4: 20603 04/05/2010 ([id number]) OFFICE/OUTPATIENT VISIT, EST María Elena [facility] CPT-4: 52657 03/09/2010 ([id number]) OFFICE/OUTPATIENT VISIT, EST María Elena [facility] CPT-4: 64166 03/03/2010 ([id number]) OFFICE/OUTPATIENT VISIT, EST María Elena [facility] CPT-4: 27791 01/17/2010 ([id number]) PREV VISIT, EST, AGE 40-64 María Elena [facility] CPT-4: 12165 12/27/2009 Plan of Care Planned Activity Notes [...] E11.65 01/13/2020 Patient Education: lisinopril- [employer] [id number] Completed 01/13/2020 Patient Education: glimepiride- [employer]on [id number] Completed 01/13/2020 Appointment: María Elena Appiah [facility]el[facility] [facility] 11/26/2019 Visit Diagnosis Plan: Type 2 diabetes mellitus with hy perglycemia Discussion: Januvia 100mg daily Glimepride 2mg po BID Accuchecks BID Call in 2 weeks with BS readings Get formulary book ICD-9 : 250.02 ICD-10 : E11.65 11/20/2019 Appointment: María Elena Appiah [facility]Ptel[facility] [phone] [facility] [facility] FOLLOW UP 11/20/2019 Patient Education: glimepiride- [employer] C[employer]on [id number] Completed 11/20/2019 Patient Education: Januvia- [employer] C[employer]on [id number] Completed 11/20/2019 Visit Diagnosis Plan: Ingrowing nail [...] ICD-10 : E11.65 10/07/2019 Appointment: Kathleen Zuniga [address] [place], [place] [id number] OFFICE SURGERY 10/07/2019 Visit Diagnosis Plan: Hypertriglyceridemia [...] E11.65 09/30/2019 Appointment: María Elena Appiah WPtel: [address] [place], [place] [phone] [place] CHECK UP 09/30/2019 Patient Education: Premarin- [employer] Coupon [id number] https://www.[employer]/resources/getResource/61/22929y74-v055-8awg-i2 Completed 09/30/2019 Appointment: María Elena Appiah WPtel: [address] [place], [place] [phone] [place] LAB 09/29/2019 Appointment: María Elena Appiah WPtel: [address] [place], [place] [phone] [place] Won't have the new insurance till [...] W06.XXXS 05/28/2019 Appointment: María Elena Appiah WPtel: [address] [place], [place] [phone] [place] FOLLOW UP 05/28/2019 Appointment: María Elena Appiah WPtel: [address] [place], [place] [phone] US BP CHECK 05/19/2019 Visit Diagnosis Plan: [...] Z79.890 01/22/2019 Appointment: María Elena Appiah WPtel: [phone] [place], [place] [address] [place] FOLLOW UP 01/22/2019 Patient Education: estradiol- [employer] Coupon [id number] https://www.[employer]/resources/getResource/61/056a906f-0dx2-1h44-6w Completed 01/22/2019 Appointment: María Elena Appiah WPtel: [address] [place] [address] US CANCELED 01/20/2019 Appointment: María Elena Appiah WPtel: [address] [place] [address] US LM NO SHOW 01/06/2019 Appointment: María Elena Appiah WPtel: [address] [place] [address] US CANCELED 10/17/2018 Appointment: María Elena Appiah WPtel: [address] [place] [address] US BP CHECK 10/09/2018 Visit Diagnosis Plan: [...] I10 09/30/2018 Appointment: María Elena Appiah WPtel: [address] [place] [address] US FOLLOW UP 09/30/2018 Visit Diagnosis Plan: [...] 08/27/2018 Appointment: María Elena Appiah WPtel: [address] [place] [address] ACUTE ILLNESS 08/27/2018 Appointment: María Elena Appiah WPtel: [address] [place] [address] US Patient stated she went out to [...] Tyle... 08/09/2018 Appointment: María Elena Appiah WPtel: [address] [place], [place] [phone] ACUTE ILLNESS 08/09/2018 Appointment: María Elena Appiah WPtel: [address] [place], [place] [phone] NO SHOW 08/08/2018 Visit Diagnosis Plan: Anxiety [...] ICD-10 : B35.4 07/22/2018 Appointment: María Elena Appiha WPtel: [address] [place] [address] ACUTE ILLNESS 07/22/2018 Appointment: María Elena Appiah WPtel: [address] [place] [address] US INJECTION 06/19/2018 Patient Education: Patient Medication [...] ICD-10 : L03.031 06/17/2018 Appointment: Kathleen Zuniga [address] [place] [address] ACUTE ILLNESS 06/17/2018 Patient Education: Patient Medication [...] ICD-10 : B02.9 05/16/2018 Appointment: Kathleen Zuniga [address] [place] [address] [place], [place] [id number] ACUTE ILLNESS 05/16/2018 Patient Education: Patient Medication [...] ICD-10 : L03.115 03/20/2018 Appointment: Kathleen Zuniga [address] [place] [address] FOLLOW UP 03/20/2018 Patient Education: Patient Medication [...] : L03.115 03/18/2018 Appointment: Kathleen Zuniga [address] [place], [place] [address] FOLLOW UP 03/18/2018 Patient Education: Patient Medication [...] : L03.115 03/15/2018 Appointment[facility] [facility] 03/15/2018 Patient [...] : J01.90 02/11/2018 Appointment: Kathleen Zuniga [address] [facility] ACUTE ILLNESS 02/11/2018 Patient Education: Patient Medication [...] : M51.16 01/30/2018 Appointment: Kathleen Zuniga [address] [facility] ACUTE ILLNESS 01/30/2018 Patient Education: Patient Medication [...] E11.65 12/18/2017 Appointment: María Elena Appiah WPtel: [facility] Annual Well Visit 12/18/2017 Patient Education: Patient Medication Summary Completed 12/18/2017 Care Plan: Referral Order SNOMED-CT : [id number] Pending 12/18/2017 Appointment: María Elena Appiah WPtel: [phone] [facility] US INJECTION 12/10/2017 Patient Education: [...] ICD-10 : L03.031 12/07/2017 Appointment: Kathleen Zuniga [address] [place], [place] [id number] ACUTE ILLNESS 12/07/2017 Patient Education: Patient [...] ICD-10 : J01.00 10/08/2017 Appointment: Kathleen Zuniga [address] [place], [place] [id number] ACUTE ILLNESS 10/08/2017 Patient Education: Patient Medication Summary Completed 10/08/2017 Appointment: María Elena Appiah WPtel: [phone] [facility] INJECTION 09/21/2017 Patient Education: Patient Medication [...] ICD-10 : R06.83 09/20/2017 Appointment: Kathleen Zuniga [address] [place], [place] [id number] 09/20/2017 Patient Education: Patient [...] ICD-10 : L60.0 08/29/2017 Appointment: Kathleen Zuniga [address] [place], [place] [id number] OFFICE SURGERY 08/29/2017 Patient Education: Patient Medication Summary Completed 08/29/2017 Visit Diagnosis Plan: Actinic keratosis Discussion: Cr yotherapy as above ICD-9 : 702.0 ICD-10 : L57.0 08/01/2017 Appointment: María Elena Appiah WPtel: [phone] [facility] OFFICE SURGERY 08/01/2017 Patient Education: Patient Medication Summary Completed 08/01/2017 Appointment: María Elena Appiah WPtel: [phone] [facility] [place] PATIENT THOUGHT APPOINTMENT WAS TOMORROW 07/26/17 CALLED 15 MINUTES BEFORE APPT TO SAY SHE DIDN'T HAVE ANYONE TO COVER HER BUSINESS AND WOULD NOT MAKE IT NO SHOW 07/25/2017 Visit Diagnosis Plan: Cellulitis of left toe Discussio n: Clindamycin and notify if worsening or persistis ICD-9 : 681.10 ICD-10 : L03.032 07/19/2017 [facility]ment[phone] [place] [facility] 07/19/2017 Patient Education: Patient Medication Summary Completed 07/19/2017 App[facility]ment: [phone] [place] CANCELED 07/04/2017 Visit Diagnosis Plan: Generalized hyperhidrosis Discus ian: CBC, CMP, TSH, free T4 ordered to assess. will review labs. ICD-9 : 780.8 ICD-10 : R61 06/27/2017 Visit Diagnosis Plan: Chronic sinusitis, unspecified D iscussion: Referral sent to dr. albarado in [place] per patient request. patient has been treated multiple times for sinus infections with no recovery. patient was seen by dr sanchez in the past with no interventions. patient has deviated septum which may be affecting her sinuses. 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, including hip Discussion: Shave removal of above lesio n--sent to pathology ICD-9 : 216.7 ICD-10 : D23.72 01/24/2017 Appointment: María Elena Appiah WPtel: [address] [place], [place] [phone] 01/23 confirmed ~sl OFFICE SURGERY 01/24/2017 Patient Education: Patient Medication Summary Completed 01/24/2017 Appointment: Gonzalo Loan [address] [place] [address] 01/09 rescheduled~sl RESCHEDULED 01/15/2017 Visit Diagnosis Plan: [...] L81.4 12/13/2016 Appointment: María Elena Appiah WPtel: [address] [place], [place] [id number] [place] 12/12 confirmed ~sl MEDICATION REVIEW 12/13/2016 Patient Education: Patient Medication Summary Completed 12/13/2016 Appointment: María Elena Appiah WPtel: [address] [place], [place] [phone] [place] rescheduled for 12/13/16 at 11am RESCHEDULED 0 12/06/2016 Appointment: María Elena [facility] [phone] [facility] [place] CANCELED 11/23/2016 Patient Education: Patient [...] F51.01 11/01/2016 Appointment: María Elena Appiah WPtel: [facility] [place] 10/31 lm `sl 11/01 lm`sl MEDICATION REVIEW 017 Patient Education: Patient Medication Summary Completed 11/01/2016 Referral: Canelo vOerton WPtel: [address] [id number] [place] Referral Initiated 10/30/2016 Visit Diagnosis Plan: [...] 10/17/2016 Appointment: María Elena Appiah WPtel: [address] [place], [place] [id number] [place] 10/16 confirmed ~sl PAP 10/17/2016 Patient Education: Patient Medication Summary Completed 10/17/2016 Care Plan: MAMMOGRAM SCREENING LOINC : 2 6347-5 Pending 10/17/2016 Visit Diagnosis Plan: Other seasonal allergic rhinitis Discussion: Decadron/Garamycin Nasal Dickens Mix Too soon for steroid Retry zyrtec 10mg daily ICD-9 : 477.9 ICD-10 : J30.2 10/10/2016 Appointment: María Elena Appiah WPtel: [address] [place], [place] [phone] FOLLOW UP 10/10/2016 Patient Education: Patient Medication Summary Completed 10/10/2016 Appointment: María Elena Appiah WPtel: [address] [place], [place] [phone] 10/02 reschedule `sl RESCHEDULED 10/02/2016 Visit Plan: See surgery for removal of n ew left arm lesion and right foot lesion Lyrica to use next month for left arm paresthesias Continue current meds Discussed sunscreen/sunblock combo 09/19/2016 Appointment: María Elena Appiah WPtel: [address] [place] [address] 09/18 confirmed ~sl FOLLOW UP 09/19/2016 Patient Education: Patient Medication Summary Completed 09/19/2016 Patient Education: Patient Medication Summary Completed 09/18/2016 Care Plan: MAMMOGRAM BOTH BREASTS LOINC : 48559-1 Pending 09/18/2016 Visit Plan: Discussed that needs [...] sinuses 08/24/2016 Appointment: María Elena Appiah WPtel: [address] [place], [place] [phone] ACUTE ILLNESS 08/24/2016 Patient Education: Patient Medication Summary Completed 08/24/2016 Patient Education: Patient Medication Summary Completed 08/23/2016 Care Plan: MAMMOGRAM SCREENING LOINC : 2 6347-5 Pending 08/23/2016 Visit Plan: Finish doxycycline Add Breo 100/25 1 p BID for 2 weeks If not improving within next 2 days will get CXR 08/16/2016 Appointment: María Elena Appiah WPtel: [address] [place] [address] ACUTE ILLNESS 08/16/2016 Patient Education: Patient Medication Summary Completed 08/16/2016 Visit Plan: Supportive care. Rest, Fluid s, Tylenol/Motrin prn fever or bodyaches. Notify if worsening symptoms. Doxycyline and Prednisone 08/10/2016 Appointment: María Elena Appiah WPtel: [address] [place] [address] 08/09 lm`sl....confirmed-sp FOLLOW UP 09/2015 Patient Education: Patient Medication Summary Completed 08/10/2016 Visit Plan: Saline nasal flushes prn. Ty lenol/Motrin prn headache. Notify if persists/symptoms worsening. Dexamethasone 8mg IM today May use coricedan and mucinex 08/02/2016 Appointment: María Elena Appiah WPtel: [address] [place] [address] ACUTE ILLNESS 08/02/2016 Patient Education: Patient Medication Summary Completed 08/02/2016 Visit Plan: Cryotherapy as above and lef t forearm lesion removal as above with 5-0 punch biopsy and sent to path Return in 10 days for suture removal 08/01/2016 Appointment: María Elena Appiah WPtel: [address] [place] [address] 07/31 confirmed`~sl OFFICE SURGERY 08/01/2016 Patient Education: Patient Medication Summary Completed 08/01/2016 Visit Plan: Stop clindamycin Check CBC, CMP, ESR now/STAT 07/27/2016 Appointment: María Elena Appiah WPtel: [address] [place] [address] ACUTE ILLNESS 07/27/2016 Patient Education: Patient Medication Summary Completed 07/27/2016 Visit Plan: Update lab and check ABIs to start with Will likely need cardiology evaluation to rule out PVD Clindamycin for 10 days Daily yogurt or probiotic Will return for removal of left arm lesions 07/20/2016 Appointment: María Elena Appiah WPtel: [address] [place], [place] [phone] ACUTE ILLNESS 07/20/2016 Patient Education: Patient Medication Summary Completed 07/20/2016 Patient Education: Patient Medication Summary Completed 07/20/2016 Care Plan: MAMMOGRAM BOTH BREASTS LOINC : 77774-3 Pending 07/20/2016 Care Plan: US EXAM CHEST LOINC : 41695-0 Pending 07/20/2016 Visit Plan: Wound culture collected from left great toe Appearance is somewhat staph like Rx as above Wound cleanser and skin care reviewed May need to add oral antibiotic if sores do not heal or continue to reoccur 07/06/2016 Appointment: Loan Sánchez [address] [place] [address] ACUTE ILLNESS 07/06/2016 Patient Education: Patient Medication Summary Completed 07/06/2016 Appointment: María Elena Appiah WPtel: [address] [place], [place] [id number] [place] INJECTION 05/25/2016 Patient Education: Patient Medication Summary Completed 05/25/2016 Visit Plan: Saline nasal flushes prn. Ty lenol/Motrin prn headache. Notify if persists/symptoms worsening. Dexamethasone and Rocephin given 04/26/2016 Appointment: María Elena Appiah WPtel: [address] [place], [place] [phone] ACUTE ILLNESS 04/26/2016 Patient Education: Patient Medication Summary Completed 04/26/2016 Visit Plan: Check CBC, CMP, TSH, FreeT4, HbA1C, estradiol, lipids in AM 03/02/2016 Appointment: María Elena Appiah WPtel: [address] [place], [place] [phone] 03/01 lm~sl ACUTE ILLNESS 03/02/2016 Patient Education: Patient Medication Summary Completed 03/02/2016 Visit Plan: Exam is nearly normal Needs to be taking daily antihistamine Would prefer to use oral steroids instead of shot but patient insist that oral steroids cause horrible headaches for her Will given kenalog IM instead 02/09/2016 Appointment: Loan Sánchez [address] [place] [address] ACUTE ILLNESS 02/09/2016 Patient Education: Patient Medication Summary Completed 02/09/2016 Visit Plan: Culture urine Macrobid DC xa nax Trial of Ativan 1mg q HS 01/24/2016 Appointment: María Elena Appiah WPtel: [address] [place] [address] ACUTE ILLNESS 01/24/2016 Patient Education: Patient Medication Summary Completed 01/24/2016 Visit Plan: No steroid or rocephin injec tion warranted Can have oral prednisone Continue current home regimen Needs to follow up with Dr Sanchez if problems persist 12/23/2015 Appointment: Loan Sánchez [address] [place] [address] ACUTE ILLNESS 12/23/2015 Patient Education: Patient Medication Summary Completed 12/23/2015 Visit Plan: Saline nasal flushes prn. Ty lenol/Motrin prn headache. Notify if persists/symptoms worsening. Kenalog 40mg IM today 12/08/2015 Appointment: María Elena Appiah WPtel: [address] [place] [address] 12/06 confirmed~ ACUTE ILLNESS 12/08/2015 Patient Education: Patient Medication Summary Completed 12/08/2015 Appointment: María Elena Appiah WPtel: [address] [place] [address] ACUTE ILLNESS 11/18/2015 Patient Education: Patient Medication Summary Completed 10/11/2015 Appointment: María Elena Appiah WPtel: [address] [place] [address] [place] INJECTION 10/07/2015 Patient Education: Patient Medication Summary Completed 10/07/2015 Visit Plan: Check renal arterial doppler s and ECHO Change amlodopine to lotrel 5/20mg q HS Will need stress test as well Check CMP, uric acid, ESR 10/06/2015 Appointment: María Elena Appiah WPtel: [address] [place] [address] ACUTE ILLNESS 10/06/2015 Patient Education: Patient Medication Summary Completed 10/06/2015 Patient Education: [facility] - Saving [employer]j - Amlodipine Besylate - 18-64 - Dynamic Portal ID Completed 10/06/2015 Appointment: María Elena Appiah WPtel: [address] [place], [place] [phone] [place] FOLLOW UP 09/22/2015 Visit Plan: Cephalexin 500 mg PO bid Mery ly topical Mupirocin to lesions on left lateral neck and face Follow-up in one week. Sooner if symptoms worsen 09/14/2015 Appointment: June Flores WPtel: [address] [place] [address] ACUTE ILLNESS 09/14/2015 Patient Education: Patient Medication Summary Completed 09/14/2015 Visit Plan: Change bystolic to bedtime d osing and amlodopine to morning dosing Cryotherapy as above to AKs 09/07/2015 Appointment: María Elena Appiah WPtel: [address] [place], [place] [phone] 09/06 appointment made and confirmed ~ FOLLOW UP 09/07/2015 Patient Education: Patient Medication Summary Completed 09/07/2015 Visit Plan: Increase bystolic back to 20 mg daily but will split and take 10mg in AM and 10mg in PM Stress Reducers 08/18/2015 Appointment: María Elena Appiah WPtel: [address] [place], [place] [phone] 08/17/15 appt confirmed cn ACUTE ILLNESS 08/18 Patient Education: Patient Medication Summary Completed 08/18/2015 Appointment: María Elena Appiah WPtel: [address] [place], [place] [phone] BP CHECK 07/07/2015 Patient Education: Patient Medication Summary Completed 07/07/2015 Appointment: María Elena Appiah WPtel: [address] [place], [place] [phone] BP CHECK 06/24/2015 Patient Education: Patient Medication Summary Completed 06/24/2015 Appointment: María Elena Appiah WPtel: [address] [place] [address] BP CHECK 06/21/2015 Patient Education: Patient Medication Summary Completed 06/21/2015 Visit Plan: Lab discussed Continue curre nt meds and lifestyle modification Recheck lab in 6mos 06/16/2015 Appointment: María Elena Appiah WPtel: [address] [place] [address] 06/15 confirmed FOLLOW UP 06/16/2015 Patient Education: Patient Medication Summary Completed 06/16/2015 Patient Education: Patient Medication Summary Completed 06/15/2015 Visit Plan: Increase cymbalta to 60mg q HS Keep clonidine at current dose Recheck 2weeks Change xanax to klonopin 06/02/2015 Appointment: María Elena Appiah WPtel: [address] [place] [address] 06/02 lm FOLLOW UP 06/02/2015 Patient Education: Patient Medication Summary Completed 06/02/2015 Appointment: María Elena Appiah WPtel: [address] [place] [address] ACUTE ILLNESS 05/24/2015 Visit Plan: Increase clonidine to 0.2mg q HS Add cymbalta 30mg q HS Recheck 2weeks Stress Reducers Check fasting lab Discussed sleep study 05/20/2015 Appointment: María Elena Appiah WPtel: [address] [place] [address] ACUTE ILLNESS 05/20/2015 Patient Education: Patient Medication Summary Completed 05/20/2015 Patient Education: [facility] - [employer]aving [employer] - Cymbalta - 18-64 - Dynamic Portal ID Completed 05/20/2015 Appointment: María Elena Appiah WPtel: [address] [place] [address] BP CHECK 05/19/2015 Patient Education: Patient Medication Summary Completed 05/19/2015 Visit Plan: Topical Bactroban alternatin g with topical betamethasone Recheck 2weeks 05/10/2015 Appointment: María Elena Appiahl: [address] [place], [place] [phone] 05/07 vm cn...05/07 appt confirmed OFFICE SURGER Y 05/10/2015 Patient Education: Patient Medication Summary Completed 05/10/2015 [facility]: [id number] [place] Referral Initiated 05/04/2015 Visit Plan: Saline nasal flushes prn. Ty lenol/Motrin prn headache. Notify if persists/symptoms worsening. Depomedrol 40mg IM today 03/16/2015 Appointment: María Elena Appiah WPtel: [address] [place] [address] ACUTE ILLNESS 03/16/2015 Patient Education: Patient Medication Summary Completed 03/16/2015 Appointment: María Elena Appiah WPtel: [address] [place] [address] ER Follow UP 03/09/2015 Visit Plan: Cryotherapy to lesions as ab ove 10/27/2014 Appointment: María Elena Appiah WPtel: [address] [place] [address] OFFICE SURGERY 10/27/2014 Patient Education: Patient Medication Summary Completed 10/27/2014 Appointment: June Flores WPtel: [address] [place] [address] ACUTE ILLNESS 09/11/2014 Patient Education: Patient Medication Summary Completed 09/11/2014 Visit Plan: Lab discussed Lipitor 10mg d aily Coenzyme Q-10 400mg daily Vitamin D3 5000u daily Recheck lipids with LFTs in 3mos then fwup 08/31/2014 Appointment: María Elena Appiah WPtel: [address] [place] [address] 08/28 voicemail FOLLOW UP 08/31/2014 Patient Education: Patient Medication Summary Completed 08/31/2014 Appointment: María Elena Appiah WPtel: [address] [place], [place] [phone] LAB 08/27/2014 Appointment: María Elena Appiah WPtel: [address] [place] [address] LAB 08/27/2014 Patient Education: Patient Medication Summary Completed 08/27/2014 Appointment: María Elena Appiah WPtel: [address] [place] [address] ACUTE ILLNESS 07/23/2014 Appointment: aMría Elena Appiah WPtel: [address] [place] [address] ACUTE ILLNESS 07/21/2014 Patient Education: Patient Medication Summary Completed 07/21/2014 Visit Plan: Kenalog 40mg IM today Contin ue narendra and singulair Add Flonase 07/15/2014 Appointment: María Elena Appiah WPtel: [address] [place] [address] ACUTE ILLNESS 07/15/2014 Appointment: María Elena Appiah WPtel: [address] [place] [address] ACUTE ILLNESS 07/15/2014 Patient Education: Patient Medication Summary Completed 07/15/2014 Visit Plan: Will do metolazone 2.5mg prn with 6 potassium and see if causes as severe cramping Trial of of seroquel XR 50mg q PM with evening meal and let us know how works 05/18/2014 Appointment: María Elena Appiah WPtel: [address] [place] [address] 05/15 left message FOLLOW UP 05/18/2014 Patient Education: Patient Medication Summary Completed 05/18/2014 Appointment: María Elena Appiah WPtel: [address] [place], [place] [phone] 05/14/2014 Patient Education: Patient Medication Summary Completed 05/14/2014 Appointment: María Elena Appiah WPtel: [address] [place], [place] [phone] [place] INJECTION 04/22/2014 Visit Plan: Tisha and Miranda today a nd finish abx given from urgent care 04/21/2014 Appointment: María Elena Appiah WPtel: [address] [place], [place] [phone] [place] INJECTION 04/21/2014 Patient Education: Patient Medication Summary Completed 04/21/2014 Appointment: June Flores WPtel: [address] [place], [place] [phone] ACUTE ILLNESS 03/04/2014 Patient Education: Patient Medication Summary Completed 03/04/2014 Appointment: María Elena Appiah WPtel: [address] [place], [place] [phone] [place] INJECTION 02/27/2014 Patient Education: Patient Medication Summary Completed 02/27/2014 Visit Plan: Cryotherapy as above to all lesions Patient wants to try no meds for insomnia for a while and see how goes 01/13/2014 Appointment: María Elena Appiah WPtel: [address] [place] [address] OFFICE SURGERY 01/13/2014 Patient Education: Patient Medication Summary Completed 01/13/2014 Visit Plan: Stop Melatonin Stop Soma Tri al of trazadone 75mg q HS See ENT for possible tubes as has had chronic ETD and serous otitis media with numerous steroids 12/24/2013 Appointment: María Elena Appiah WPtel: [address] [place], [place] [phone] ACUTE ILLNESS 12/24/2013 Patient Education: Patient Medication Summary Completed 12/24/2013 Visit Plan: Saline nasal flushes prn. Ty lenol/Motrin prn headache. Notify if persists/symptoms worsening. 11/12/2013 Appointment: María Elena Appiah WPtel: [address] [place], [place] [phone] ACUTE ILLNESS 11/12/2013 Patient Education: Patient Medication Summary Completed 11/12/2013 Appointment: María Elena Appiah WPtel: [address] [place] [address] ACUTE ILLNESS 10/21/2013 Patient Education: Patient Medication Summary Completed 10/21/2013 Visit Plan: Sleep hygiene and sleep rout ine Melatonin 10mg q HS Support stockings and observe 09/22/2013 Appointment: María Elena Appiah WPtel: [address] [place] [address] ACUTE ILLNESS 09/22/2013 Patient Education: Patient Medication Summary Completed 09/22/2013 Appointment: June Flores WPtel: [address] [place] [address] ACUTE ILLNESS 08/27/2013 Patient Education: Patient Medication Summary Completed 08/27/2013 Visit Plan: Proceed with CT scan of head /neck Proceed with occipital nerve injections Butrans 20mcg patch weekly until can get into see Dr. Mcdonough for injections 08/04/2013 Appointment: María Elena Appiah WPtel: [address] [place] [address] FOLLOW UP 08/04/2013 Patient Education: Patient Medication Summary Completed 08/04/2013 Visit Plan: OMT done Daily neck stretche s, moist heat Increase Celebrex to 200mg BID Add flexeril 07/23/2013 Appointment: María Elena Appiah WPtel: [address] [place] [address] 07/22 voicemail FOLLOW UP 07/23/2013 Patient Education: Patient Medication Summary Completed 07/23/2013 Appointment: María Elena Appiah WPtel: [address] [place] [address] ACUTE ILLNESS 06/23/2013 Patient Education: Patient Medication Summary Completed 06/23/2013 Appointment: María Elena Appiah WPtel: [address] [place] [address] ACUTE ILLNESS 05/26/2013 Patient Education: Patient Medication Summary Completed 05/26/2013 Visit Plan: Decrease clonidine to 0.1mg TID If BP remains stable consider decreasing amlodopine Prednisone for 5 days BP check in 1mo 04/16/2013 Appointment: María Elena Appiah WPtel: [address] [place] [address] 04/14 pt called and confirmed appt FOLLOW UP 04/16/2013 Patient Education: Patient Medication Summary Completed 04/16/2013 Appointment: María Elena Appiah WPtel: [address] [place] [address] ACUTE ILLNESS 03/05/2013 Patient Education: Patient Medication Summary Completed 03/05/2013 Visit Plan: Pt has MARIA ELENA on with Dr. Sharonda Arita Butrans patch Refill Hydrocodone early tomorrow 12/23/2012 Appointment: María Elena Appiah WPtel: [address] [place] [address] FOLLOW UP 12/23/2012 Patient Education: Patient Medication Summary Completed 12/23/2012 Appointment: Lashawn Eckert WPtel: [address] [place] [address] ACUTE ILLNESS 12/16/2012 Patient Education: Patient Medication Summary Completed 12/16/2012 Visit Plan: Proceed with updated MRI of LS spine Continue gabapentin and add soma and diclofenac Will likely need to go for another epidural 12/09/2012 Appointment: María Elena Appiah WPtel: [address] [place] [address] ACUTE ILLNESS 12/09/2012 Patient Education: Patient Medication Summary Completed 12/09/2012 Visit Plan: Injection as above Finish me drol dose pack Chiropracter this afternoon 12/04/2012 Appointment: María Elena Appiah WPtel: [address] [place] [address] ACUTE ILLNESS 12/04/2012 Patient Education: Patient Medication Summary Completed 12/04/2012 Appointment: Mary Tillman WPtel: [address] [place] [address] FOLLOW UP 11/22/2012 Patient Education: Patient Medication Summary Completed 11/22/2012 Appointment: María Elena Appiah WPtel: [address] [place] [address] ACUTE ILLNESS 11/21/2012 Patient Education: Patient Medication Summary Completed 11/21/2012 Appointment: María Elena Appiah WPtel: [address] [place] [address] BP CHECK 11/07/2012 Patient Education: Patient Medication Summary Completed 11/07/2012 Visit Plan: reports extra clonidine and extra amlodipine and extra alprazalam. extra Ketolorac and promethazine last night. Bystolic 10 mg QAM and will continue all other blood pressure meds. Pt. encouraged to rest and hydrate. Discussed stroke and CT symptoms. Pt. instructed to seek ER eval if symptoms worsen or headache persists. Pt. agrees to ER eval/EMS transport if symptoms worsen. BP re-check. 10/29/2012 Appointment: Lashawn Eckert WPtel: [address] [place] [address] ACUTE ILLNESS 10/29/2012 Patient Education: Patient Medication Summary Completed 10/29/2012 Appointment: María Elena Appiah WPtel: [address] [place] [address] ACUTE ILLNESS 10/14/2012 Patient Education: Patient Medication Summary Completed 10/14/2012 Appointment: María Elena Appiah WPtel: [address] [place] [address] UA 09/27/2012 Patient Education: Patient Medication Summary Completed 09/27/2012 Appointment: María Elena Appiah WPtel: [address] [place] [address] ACUTE ILLNESS 09/25/2012 Patient Education: Patient Medication Summary Completed 09/25/2012 Appointment: María Elena Appiah WPtel: [address] [place] [address] BP CHECK 09/24/2012 Appointment: María Elena Appiah WPtel: [address] [place], [place] [phone] ACUTE ILLNESS 08/29/2012 Patient Education: Patient Medication Summary Completed 08/29/2012 Visit Plan: Cryotherapy as above See Karlos m for right ear lesion--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 ACUTE ILLNESS 05/06/2012 Patient Education: Patient Medication Summary Completed 05/06/2012 Visit Plan: Pt wants to hold on any furt her sleep medications 04/03/2012 Appointment: María Elena Appiah WPtel: [address] [place] [address] FOLLOW UP 04/03/2012 Patient Education: Patient Medication Summary Completed 04/03/2012 Appointment: María Elena Appiah WPtel: [address] [place], [place] [phone] FOLLOW UP 03/19/2012 Patient Education: Patient Medication Summary Completed 03/19/2012 Appointment: María Elena Appiah WPtel: [address] [place], [place] [phone] BP CHECK 02/22/2012 Patient Education: Patient Medication Summary Completed 02/22/2012 Appointment: María Elena Appiah WPtel: [address] [place], [place] [phone] BP CHECK 02/21/2012 Patient Education: Patient Medication Summary Completed 02/21/2012 Visit Plan: Doxycycline and bactroban fo r foot Supportive care on ankles and knees Add norvasc for BP 02/20/2012 Appointment: María Elena Appiahtel: [address] [place] [address] ER Follow UP 02/20/2012 Patient Education: Patient Medication Summary Completed 02/20/2012 Appointment: María Elena Appiahtel: [address] [place] [address] ACUTE ILLNESS 01/30/2012 Patient Education: Patient Medication Summary Completed 01/30/2012 Appointment: María Elena Appiahtel: [address] [place] [address] ACUTE ILLNESS 01/24/2012 Patient Education: Patient Medication Summary Completed 01/24/2012 Visit Plan: Daily back stretches, moist heat, Biofreeze prn OMT done 01/10/2012 Appointment: María Elena Appiahtel: [address] [place] [address] ACUTE ILLNESS 01/10/2012 Patient Education: Patient Medication Summary Completed 01/10/2012 Appointment: María Elena Appiahtel: [address] [place] [address] FOLLOW UP 12/11/2011 Patient Education: Patient Medication Summary Completed 12/11/2011 Appointment: María Elena Appiahtel: [address] [place] [address] ACUTE ILLNESS 11/09/2011 Patient Education: Patient Medication Summary Completed 11/09/2011 Appointment: María Elena Appiahtel: [address] [place] [address] ACUTE ILLNESS 09/13/2011 Patient Education: Patient Medication Summary Completed 09/13/2011 Visit Plan: Check CBC, TSH, Free T4, CMP , ESR, Vit D, B12 now Start Prednisone today 08/31/2011 Appointment: María Elena Appiahtel: [address] [place], [place] [phone] ACUTE ILLNESS 08/31/2011 Patient Education: Patient Medication Summary Completed 08/31/2011 Appointment: María Elena Appiahtel: [address] [place], [place] [id number] [place] INJECTION 07/20/2011 Patient Education: Patient Medication Summary Completed 07/20/2011 Visit Plan: Continue current meds Monite r BP Cont stretches from PT 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 07/06/2011 Appointment: María Elena Appiah WPtel: [address] [place] [address] FOLLOW UP 07/06/2011 Patient Education: Patient Medication Summary Completed 07/06/2011 Appointment: María Elena Appiah WPtel: [address] [place] [address] BP CHECK 06/06/2011 Patient Education: Patient Medication Summary Completed 06/06/2011 Visit Plan: Add Bystolic at 2.5mg QAM Ad d Robaxin 750mg 2 po q HS BP check in 2wks 05/22/2011 Appointment: María Elena Appiahtel: [address] [place] [address] FOLLOW UP 05/22/2011 Patient Education: Patient Medication Summary Completed 05/22/2011 Appointment: María Elena Appiah WPtel: [address] [place], [place] [phone] ER Follow UP 05/09/2011 Patient Education: Patient Medication Summary Completed 05/09/2011 Appointment: María Elena Appiah WPtel: [address] [place] [address] [place] FOLLOW UP 02/22/2011 Visit Plan: Rx written for Hydrocodone 1 0/325mg #240 See Ortho 02/14/2011 Appointment: María Elena Appiah WPtel: [address] [place], [place] [phone] OMT 02/14/2011 Patient Education: Patient Medication [...] work. 02/03/2011 Appointment: Lashawn Eckert WPtel: [address] [place] [address] ACUTE ILLNESS 02/03/2011 Patient Education: Patient Medication Summary Completed 02/03/2011 Visit Plan: OMT done Cont daily stretche s 01/31/2011 Appointment: María Elena Appiah WPtel: [address] [place] [address] ACUTE ILLNESS 01/31/2011 Patient Education: Patient Medication Summary Completed 01/31/2011 Visit Plan: Continue pain meds OMT done Proceed with PT No work this summer01/25/2011 Appointment: María Elena Appiah WPtel: [address] [place] [address] ACUTE ILLNESS 01/25/2011 Patient Education: Patient Medication Summary Completed 01/25/2011 Visit Plan: Start PT Long discussion abo ut getting pain meds from only us and can only have max of 4grams of tylenol per day Change to Hydrocodone 10/325mg 1- 2 po TID prn pain--#180 called to Radha 01/18/2011 Appointment: María Elena Appiah WPtel: [address] [place] [address] FOLLOW UP 01/18/2011 Patient Education: Patient Medication Summary Completed 01/18/2011 Visit Plan: Daily back stretches, moist heat, Biofreeze prn 11/29/2010 Appointment: María Elena Appiah WPtel: [address] [place], [place] [id number] ER Follow UP 11/29/2010 Patient Education: Patient Medication Summary Completed 11/29/2010 Visit Plan: Saline nasal flushes prn. Ty lenol/Motrin prn headache. Notify if persists/symptoms worsening. Finish augmentin Add Medrol Dose Pack 10/10/2010 Appointment: María Elena Appiah WPtel: [address] [place], [place] [phone] ACUTE ILLNESS 10/10/2010 Patient Education: Patient Medication Summary Completed 10/10/2010 Visit Plan: Cryotherapy x3 to multiple l esions on both forearms 07/19/2010 Appointment: María Elena Appiah WPtel: [address] [place] [address] OFFICE SURGERY 07/19/2010 Patient Education: Patient Medication Summary Completed 07/19/2010 Appointment: María Elena Appiah WPtel: [address] [place] [address] BP CHECK 07/06/2010 Patient Education: Patient Medication Summary Completed 07/06/2010 Appointment: María Elena Appiah WPtel: [address] [place], [place] [phone] BP CHECK 06/30/2010 Patient Education: Patient Medication Summary Completed 06/30/2010 Appointment: María Elena Appiah WPtel: [address] [place], [place] [phone] BP CHECK 06/20/2010 Patient Education: Patient Medication Summary Completed 06/20/2010 Visit Plan: Change Diovan to Exforge 160 /5mg QD OMT done to thoracics BP check in 2wks 06/07/2010 Appointment: María Elena Appiah WPtel: [address] [place], [place] [id number] FOLLOW UP 06/07/2010 Patient Education: Patient Medication Summary Completed 06/07/2010 Appointment: María Elena Appiah WPtel: [address] [place] [address] BP CHECK 06/03/2010 Patient Education: Patient Medication Summary Completed 06/03/2010 Appointment: María Elena Appiah WPtel: [address] [place] [address] BP CHECK 06/01/2010 Patient Education: Patient Medication Summary Completed 06/01/2010 Visit Plan: Irritated skin tags to left neck x2 excised at base with scissors and base cauterized 05/30/2010 Appointment: María Elena Appiah WPtel: [address] [place] [address] OFFICE SURGERY 05/30/2010 Patient Education: Patient Medication Summary Completed 05/30/2010 Visit Plan: Saline nasal flushes prn. Ty lenol/Motrin prn headache. Notify if persists/symptoms worsening. Restart Nasonex Has allergy testing set for May 25 04/27/2010 Appointment: María Elena Appiah WPtel: [address] [place] [address] ACUTE ILLNESS 04/27/2010 Patient Education: Patient Medication Summary Completed 04/27/2010 Visit Plan: Saline nasal flushes prn. Ty lenol/Motrin prn headache. Notify if persists/symptoms worsening. Omnaris BID plus injections 04/05/2010 Appointment: María Elena Appiah WPtel: [address] [place] [address] ACUTE ILLNESS 04/05/2010 Patient Education: Patient Medication Summary Completed 04/05/2010 Visit Plan: Saline nasal flushes prn. Ty lenol/Motrin prn headache. Notify if persists/symptoms worsening. 03/09/2010 Appointment: María Elena Appiah WPtel: [address] [place] [address] ACUTE ILLNESS 03/09/2010 Patient Education: Patient Medication Summary Completed 03/09/2010 Visit Plan: Cont Clonidine as is Cont Pr emarin Fwup with surgery as scheduled 03/03/2010 Appointment: María Elena Appiah WPtel: [address] [place], [place] [phone] FOLLOW UP 03/03/2010 Patient Education: Patient Medication Summary Completed 03/03/2010 Visit Plan: Check Pelvic US now Discusse tacho Sal C vs Hysterectomy 01/17/2010 Appointment: María Elena Appiah WPtel: [address] [place], [place] [phone] ACUTE ILLNESS 01/17/2010 Patient Education: Patient Medication Summary Completed 01/17/2010 Visit Plan: Check fasting lab and schedu le Mammogram 2gm Na Diet Trial of Ambien 10mg qhs Fwup pending lab results 12/27/2009 Appointment: María Elena Appiah WPtel: [address] [place] [address] ESTABLISHED PATIENT 12/27/2009 Patient Education: Patient Medication Summary Completed 12/27/2009 Referral: Canelo Overton WPtel: [address] [id number] [place] Referral Initiated Referral: Philipp Flores WPtel: [address] [id number] [place] Referral Appointment Requested Instructions Comment . [...] regimen Needs to follow up with Dr Sacnhez if problems persist . Saline nasal flushes [...] to rest and hydrate. Discussed stroke and CT symptoms. Pt. instructed to seek ER eval [...]
--- OUTSIDE RECORDS SUMMARY | 2020-03-13 05:03 | XMS REPORT | CCD ---
Author Author Gale Appiah D.O. 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 Name Role Phone María Elena Appiah D.O., PP Unavailable CCM Unavailable Summary Purpose Interface Exchange Insurance Providers Payer name Policy type / Coverage type Covered constitution party ID Effective Begin Date Effective End Date [facility] Commercial Insurance [id number] Unknown Family History Family History data not found Social History Social History Element Codes Description Effective Dates Tobacco history SNOMED CT: 475428170 Never smoker 05/22/2011 Allergies, Adverse Reactions, Alerts Substance Reaction Codes Entered Date Inactivated Date Status * NO KNOWN FOOD ALLERGIES Unknown 12/27/2009 No Inactiv e Date Active _ Unknown 03/10/2013 No Inactive Date Active _ Unknown 12/27/2009 No Inactive Date Active SULFA (SULFONAMIDE ANTIBIOTICS) Unknown 12/27/2009 No I nactive Date Active Problems Condition Codes Effective Dates Condition Status Type 2 diabetes mellitus with hyperglycemia ICD-9: 250 .02 ICD-10: E11.65 12/18/2017 Active Ingrowing nail ICD-9: 703.0 ICD-10: L60.0 08/29/2017 Active Essential hypertension ICD-9: 401.9 ICD-10: I10 05/14/2014 Active Hypertriglyceridemia ICD-9: 272.1 ICD-10: E78.1 09/30/2019 [...] hydrocodone 10 mg-acetaminophen 325 mg tablet RxNorm: 285110 1-2 Tablet(s) Oral three times a day as needed for pain 01/12/2020 No Stop Date Active cyclobenzaprine 10 mg tablet RxNorm: 843570 TAKE ONE TA BLET BY MOUTH THREE TIMES A DAY NEEDED FOR MUSCLE SPASMS 01/05/2020 No Stop Date Active triamterene 75 mg-hydrochlorothiazide 50 mg tablet RxNorm: 3 19275 TAKE ONE TABLET BY MOUTH DAILY 12/29/2019 No Stop Date Active Klor-Con 8 mEq tablet,extended release RxNorm: 829017 T FARRUKH ONE TABLET BY MOUTH TWICE A DAY 12/19/2019 No Stop Date Active allopurinol 300 mg tablet RxNorm: 283228 TAKE ONE TABLET BY LOPEZ TH DAILY 12/19/2019 No Stop Date Active glimepiride 2 mg tablet RxNorm: 854495 TAKE ONE TABLET BY MOUTH TWICE A DAY 12/19/2019 No Stop Date Active hydrocodone 10 mg-acetaminophen 325 mg tablet RxNorm: 408324 1-2 Tablet(s) Oral three times a day as needed for pain 12/10/2019 01/11/2020 Inactive Januvia 100 mg tablet RxNorm: 471909 1 Tablet(s) Oral QD 11/20/2019 0 11/20/2019 Inactive glimepiride 2 mg tablet RxNorm: 353234 1 Tablet(s) Oral two sawyer es a day 11/20/2019 12/18/2019 Inactive cyclobenzaprine 10 mg tablet RxNorm: 938187 TAKE ONE TA BLET BY MOUTH THREE TIMES A DAY NEEDED FOR MUSCLE SPASMS 11/17/2019 01/04/2020 Inactive doxepin 25 mg capsule RxNorm: 8606763 TAKE ONE CAPSULE B Y MOUTH EVERY NIGHT AT BEDTIME NEEDED FOR SLEEP 11/16/2019 No Stop Date Active Klor-Con 8 mEq tablet,extended release RxNorm: 328695 T FARRUKH ONE TABLET BY MOUTH TWICE A DAY 11/16/2019 12/18/2019 Inactive hydrocodone 10 mg-acetaminophen 325 mg tablet RxNorm: 028313 1-2 Tablet(s) Oral three times a day as needed for pain 11/10/2019 12/09/2019 Inactive cyclobenzaprine 10 mg tablet RxNorm: 741514 TAKE ONE TA BLET BY MOUTH THREE TIMES A DAY NEEDED FOR MUSCLE SPASMS 10/23/2019 11/16/2019 Inactive duloxetine 60 mg capsule,delayed release RxNorm: 722262 1 Capsu le(s) Oral QD 10/17/2019 04/13/2020 Active celecoxib 200 mg capsule RxNorm: 950713 1 Capsule(s) Or al two times a day as needed for pain 10/17/2019 01/14/2020 Active lisinopril 20 mg tablet RxNorm: 981379 1 Tablet(s) Oral QD 10/17/19 20 04/13/2020 Active gabapentin 300 mg capsule RxNorm: 221399 1 Capsule(s) O ral every night at bedtime 10/17/2019 01/15/2020 Active Singulair 10 mg tablet RxNorm: 577076 1 Tablet(s) Oral QD 10/17/2019 04/14/2020 Active metoprolol tartrate 100 mg tablet RxNorm: 137430 1 Tabl et(s) Oral two times a day 10/17/2019 04/13/2020 Active clonidine HCl 0.1 mg tablet RxNorm: 863325 1 Tablet(s) Oral fou r times a day 10/17/2019 04/13/2020 Active Januvia 100 mg tablet RxNorm: 350548 1 Tablet(s) Oral QD 10/17/2019 No Stop Date Active Lipitor 10 mg tablet RxNorm: 908285 1 Tablet(s) Oral QD 10/17/2019 Active Steglatro 15 mg tablet RxNorm: 2733861 1 Tablet(s) Oral QD 02/07/20 20 No Stop Date Active Klor-Con 8 mEq tablet,extended release RxNorm: 700499 1 Tablet(s) Oral two times a day 10/17/2019 11/15/2019 Inactive Glyxambi 25 mg-5 mg tablet RxNorm: 9045511 1 Tablet(s) Oral QD 01/202010/16/2019 Inactive Patient will bring in copay discount card as well Glyxambi 25 mg-5 mg tablet RxNorm: 1629547 1 Tablet(s) Oral QD 01/202010/14/2019 Inactive Patient will bring in copay discount card as well Keflex 500 mg capsule RxNorm: 244113 1 Capsule(s) Oral two time s a day 10/07/2019 10/14/2019 Inactive Premarin 1.25 mg tablet RxNorm: 521486 1 Tablet(s) Oral QD 09/30/1906/25/2020 Active hydrocodone 10 mg-acetaminophen 325 mg tablet RxNorm: 292527 1-2 Tablet(s) Oral three times a day as needed for pain 09/30/2019 09/30/2019 Inactive baclofen 10 mg tablet RxNorm: 057498 TAKE ONE TABLET BY MOUTH THREE TIMES A DAY NEEDED 09/19/2019 No Stop Date Active gabapentin 300 mg capsule RxNorm: 280998 TAKE ONE CAPSU LE BY MOUTH EVERY NIGHT AT BEDTIME 09/19/2019 10/16/2019 Inactive Klor-Con 8 mEq tablet,extended release RxNorm: 331915 T FARRUKH ONE TABLET BY MOUTH TWICE A DAY 1 Tablet(s) Oral two times a day 09/19/2019 10/16/2019 [place] ctive hydrocodone 10 mg-acetaminophen 325 mg tablet RxNorm: 054703 1-2 Tablet(s) Oral three times a day as needed for pain 09/19/2019 09/29/2019 Inactive duloxetine 60 mg capsule,delayed release RxNorm: 100954 TAKE ONE CAPSULE BY MOUTH DAILY 09/11/2019 10/16/2019 Inactive Lipitor 10 mg tablet RxNorm: 583225 TAKE ONE TABLET BY MOUTH AT BEDTIME 09/11/2019 10/16/2019 Inactive lisinopril 20 mg tablet RxNorm: 388274 TAKE ONE TABLET BY MOUTH DAILY .... THIS REPLACE 10MG TABLETS 09/11/2019 10/16/2019 Inactive triamterene 75 mg-hydrochlorothiazide 50 mg tablet RxNorm: 3 28144 TAKE ONE TABLET BY MOUTH DAILY 09/11/2019 12/28/2019 Inactive allopurinol 300 mg tablet RxNorm: 243774 TAKE ONE TABLET BY LOPEZ TH DAILY 09/11/2019 12/18/2019 Inactive celecoxib 200 mg capsule RxNorm: 692145 TAKE ONE CAPSUL E BY MOUTH TWICE A DAY NEEDED FOR PAIN 09/11/2019 10/16/2019 Inactive clonidine HCl 0.1 mg tablet RxNorm: 685340 TAKE ONE TAB LET BY MOUTH FOUR TIMES A DAY 09/11/2019 10/16/2019 Inactive doxepin 25 mg capsule RxNorm: 7994051 1 Capsule(s) Oral every night at bedtime as needed for sleep 08/21/2019 11/15/2019 Inactive hydrocodone 10 mg-acetaminophen 325 mg tablet RxNorm: 398947 1-2 Tablet(s) PO TID 08/12/2019 09/29/2019 Inactive as needed for pa in - Previous quantity #240, will start dosing for #180 in April 2011 per Doctor Td. Medrol (Dustin) 4 mg tablets in a dose pack RxNorm: 270631 Tablet(s) Oral As Directed 07/21/2019 09/29/2019 Inactive Premarin 1.25 mg tablet RxNorm: 427411 1 Tablet(s) Oral QD 07/02/2009/29/2019 Inactive hydrocodone 10 mg-acetaminophen 325 mg tablet RxNorm: 980397 1-2 Tablet(s) PO TID 07/01/2019 08/11/2019 Inactive as needed for pa in - Previous quantity #240, will start dosing for #180 in April 2011 per Doctor Td. gabapentin 300 mg capsule RxNorm: 664318 1 Capsule(s) PO QHS 201809/18/2019 Inactive celecoxib 200 mg capsule RxNorm: 315926 1 Capsule(s) Or al two times a day as needed for pain 06/27/2019 06/27/2019 Inactive furosemide 40 mg tablet RxNorm: 648917 TAKE ONE TABLET BY MOUTH EVERY MORNING NEEDED FOR EDEMA . TAKE WITH POTASSIUM 06/24/2019 No Stop Date Active doxepin 25 mg capsule RxNorm: 0875563 TAKE ONE CAPSULE B Y MOUTH EVERY NIGHT AT BEDTIME NEEDED FOR SLEEP 06/24/2019 08/20/2019 Inactive Singulair 10 mg tablet RxNorm: 985774 TAKE ONE TABLET BY MOUTH JOSÉ Y 06/24/2019 10/16/2019 Inactive lisinopril 20 mg tablet RxNorm: 023960 TAKE ONE TABLET BY MOUTH DAILY .... THIS REPLACE 10MG TABLETS 06/24/2019 09/10/2019 Inactive nystatin-triamcinolone 100,000 unit/g-0.1 % topical cream Rx Norm: 1437569 1 Application Topical two times a day 06/12/2019 06/19/2019 Inactive apply BID for 1 week nystatin-triamcinolone 100,000 unit/g-0.1 % topical cream Rx Norm: 1101541 1 Application Topical two times a day 06/12/2019 06/11/2019 Inactive apply BID for 1 week hydrocodone 10 mg-acetaminophen 325 mg tablet RxNorm: 485179 1-2 Tablet(s) PO QID as needed for pain MUST LAST 30 DAYS 05/28/2019 06/26/2019 Inactiv e (Response to an electronic controlled substance refill request - RxReferenceNumber: [id number]) baclofen 20 mg tablet RxNorm: 289492 1 Tablet(s) PO TID as needed for muscle spasm 05/19/2019 05/27/2019 Inactive gabapentin 300 mg capsule RxNorm: 401771 1 Capsule(s) PO QHS 201805/27/2019 Inactive lisinopril 20 mg tablet RxNorm: 955211 1 Tablet(s) PO Q D TAKE ONE TABLET BY MOUTH DAILY, REPLACES 10 MG DOSE 05/19/2019 06/23/2019 Inactive doxepin 25 mg capsule RxNorm: 0444770 TAKE ONE CAPSULE B Y MOUTH EVERY NIGHT AT BEDTIME NEEDED FOR SLEEP 05/16/2019 06/14/2019 Inactive lisinopril 20 mg tablet RxNorm: 341366 TAKE ONE TABLET BY MOUTH DAILY, REPLACES 10 MG DOSE 05/16/2019 05/18/2019 Inactive Singulair 10 mg tablet RxNorm: 576381 TAKE ONE TABLET BY MOUTH JOSÉ Y 05/16/2019 06/14/2019 Inactive gabapentin 300 mg capsule RxNorm: 054101 1 Capsule(s) PO QHS 201805/04/2019 Inactive estropipate 1.5 mg tablet RxNorm: 982646 1 Tablet(s) PO QD 05/05/20 19 05/27/2019 Inactive estropipate 1.5 mg tablet RxNorm: 715527 1 Tablet(s) PO QD 05/05/20 19 05/04/2019 Inactive gabapentin 300 mg capsule RxNorm: 732030 1 Capsule(s) PO QHS 201805/18/2019 Inactive hydrocodone 10 mg-acetaminophen 325 mg tablet RxNorm: 710374 1-2 Tablet(s) PO QID as needed for pain MUST LAST 30 DAYS 04/25/2019 05/24/2019 Inactiv e (Response to an electronic controlled substance refill request - RxReferenceNumber: [id number]) cyclobenzaprine 10 mg tablet RxNorm: 168439 TAKE ONE TA BLET BY MOUTH THREE TIMES A DAY NEEDED FOR MUSCLE SPASMS 04/24/2019 05/18/2019 Inactive metoprolol tartrate 100 mg tablet RxNorm: 818251 TAKE O NE TABLET BY MOUTH TWICE A DAY 04/24/2019 10/16/2019 Inactive Lyrica 75 mg capsule RxNorm: 916116 1 Capsule(s) PO QHS 03/25/2019 Inactive duloxetine 60 mg capsule,delayed release RxNorm: 946538 TAKE ONE CAPSULE BY MOUTH DAILY 03/21/2019 05/19/2019 Inactive triamterene 75 mg-hydrochlorothiazide 50 mg tablet RxNorm: 3 35671 TAKE ONE TABLET BY MOUTH DAILY 03/21/2019 05/19/2019 Inactive Klor-Con 8 mEq tablet,extended release RxNorm: 960633 T FARRUKH ONE TABLET BY MOUTH TWICE A DAY 03/21/2019 09/18/2019 Inactive Lipitor 10 mg tablet RxNorm: 597891 TAKE ONE TABLET BY MOUTH AT BEDTIME 03/21/2019 09/10/2019 Inactive clonidine HCl 0.1 mg tablet RxNorm: 687844 TAKE ONE TAB LET BY MOUTH FOUR TIMES A DAY 03/21/2019 05/19/2019 Inactive allopurinol 300 mg tablet RxNorm: 196393 TAKE ONE TABLET BY LOPEZ TH DAILY 03/21/2019 05/19/2019 Inactive hydrocodone 10 mg-acetaminophen 325 mg tablet RxNorm: 998042 1-2 Tablet(s) PO QID as needed for pain MUST LAST 30 DAYS 02/28/2019 03/29/2019 Inactiv e (Response to an electronic controlled substance refill request [id number]) furosemide 40 mg tablet RxNorm: 396137 TAKE ONE TABLET BY MOUTH EVERY MORNING NEEDED FOR EDEMA . TAKE WITH POTASSIUM 02/21/2019 03/22/2019 Inactive cyclobenzaprine 10 mg tablet RxNorm: 192920 TAKE ONE TA BLET BY MOUTH THREE TIMES A DAY NEEDED FOR MUSCLE SPASMS 02/21/2019 04/21/2019 Inactive lisinopril 20 mg tablet RxNorm: 688342 TAKE ONE TABLET BY MOUTH DAILY, REPLACES 10 MG DOSE 02/21/2019 05/15/2019 Inactive doxepin 25 mg capsule RxNorm: 3376523 TAKE ONE CAPSULE B Y MOUTH EVERY NIGHT AT BEDTIME NEEDED FOR SLEEP 02/21/2019 05/15/2019 Inactive nystatin 100,000 unit/gram topical cream RxNorm: 135272 APPLY TO AFFECTED AREA(S) TWO TIMES A DAY 02/21/2019 03/22/2019 Inactive estradiol 1 mg tablet RxNorm: 817093 2 Tablet(s) PO QD replaces premarin 01/22/2019 05/04/2019 Inactive lisinopril 20 mg tablet RxNorm: 778967 TAKE ONE TABLET BY MOUTH DAILY, REPLACES 10 MG DOSE 01/20/2019 02/18/2019 Inactive cyclobenzaprine 10 mg tablet RxNorm: 552746 TAKE ONE TA BLET BY MOUTH THREE TIMES A DAY NEEDED FOR MUSCLE SPASMS 01/20/2019 02/18/2019 Inactive metoprolol tartrate 100 mg tablet RxNorm: 344159 TAKE O NE TABLET BY MOUTH TWICE A DAY 01/20/2019 02/18/2019 Inactive cyclobenzaprine 10 mg tablet RxNorm: 983315 TAKE ONE TA BLET BY MOUTH THREE TIMES A DAY NEEDED FOR MUSCLE SPASMS 12/19/2018 01/17/2019 Inactive lisinopril 20 mg tablet RxNorm: 044541 TAKE ONE TABLET BY MOUTH DAILY, REPLACES 10 MG DOSE 12/19/2018 01/17/2019 Inactive duloxetine 60 mg capsule,delayed release RxNorm: 240047 TAKE ONE CAPSULE BY MOUTH DAILY 12/19/2018 01/17/2019 Inactive Lipitor 10 mg tablet RxNorm: 948768 TAKE ONE TABLET BY MOUTH AT BEDTIME 12/19/2018 01/17/2019 Inactive cyclobenzaprine 10 mg tablet RxNorm: 450069 1 Tablet(s) PO TID as needed for muscle spasm 11/19/2018 12/18/2018 Inactive Singulair 10 mg tablet RxNorm: 208993 1 Tablet(s) PO QD 11/19/2018 Inactive lisinopril 20 mg tablet RxNorm: 764177 TAKE ONE TABLET BY MOUTH DAILY, REPLACES 10 MG DOSE 11/15/2018 12/18/2018 Inactive hydrocodone 10 mg-acetaminophen 325 mg tablet RxNorm: 733966 1-2 Tablet(s) PO QID as needed for pain MUST LAST 30 DAYS 11/13/2018 12/12/2018 Inactiv e (Response to an electronic controlled substance refill request - RxReferenceNumber: [id number]) nystatin 100,000 unit/gram topical cream RxNorm: 351483 APPLY TO AFFECTED AREA(S) TWO TIMES A DAY 10/23/2018 11/06/2018 Inactive lisinopril 20 mg tablet RxNorm: 702060 1 Tablet(s) PO QD replac es 10mg dose 10/18/2018 11/14/2018 Inactive hydrocodone 10 mg-acetaminophen 325 mg tablet RxNorm: 211363 1-2 Tablet(s) QID as needed for pain MUST LAST 30 DAYS 10/08/2018 11/06/2018 Inactive (Response to an electronic controlled substance refill request - RxReferenceNumber: [id number]) lisinopril 10 mg tablet RxNorm: 647082 1 Tablet(s) PO QD 10/03/2018 0 01/21/2019 Inactive Celebrex 200 mg capsule RxNorm: 809589 TAKE ONE CAPSULE BY MOUT H TWICE A DAY 09/30/2018 05/04/2019 Inactive cyclobenzaprine 10 mg tablet RxNorm: 928542 TAKE ONE TA BLET BY MOUTH THREE TIMES A DAY NEEDED FOR MUSCLE SPASMS 09/30/2018 11/18/2018 Inactive doxepin 25 mg capsule RxNorm: 3932754 TAKE ONE CAPSULE B Y MOUTH EVERY NIGHT AT BEDTIME NEEDED 09/05/2018 10/16/2018 Inactive omeprazole 40 mg capsule,delayed release RxNorm: 386351 TAKE ONE CAPSULE BY MOUTH DAILY 09/05/2018 01/21/2019 Inactive furosemide 40 mg tablet RxNorm: 352697 TAKE ONE TABLET BY MOUTH EVERY MORNING NEEDED FOR EDEMA . TAKE WITH POTASSIUM 09/05/2018 11/03/2018 Inactive phentermine 37.5 mg tablet RxNorm: 011710 1 Tablet(s) PO QAM 201701/21/2019 Inactive doxepin 25 mg capsule RxNorm: 4841823 1 Capsule(s) PO QH S as needed for sleep TAKE ONE CAPSULE BY MOUTH EVERY NIGHT AT BEDTIME NEEDED 08/27/2018 09/04/2018 Inactive Keflex 500 mg capsule RxNorm: 624948 1 Capsule(s) PO TID 08/09/2018 1 10/19/2017 Inactive Diflucan 100 mg tablet RxNorm: 984978 1 Tablet(s) PO QD 08/09/2018 Inactive Premarin 1.25 mg tablet RxNorm: 999886 2 Tablet(s) PO QD 08/09/2018 0 05/04/2019 Inactive Zofran ODT 4 mg disintegrating tablet RxNorm: 969087 1 Tablet(s) PO Q4H as needed for nausea 08/09/2018 01/21/2019 Inactive metoprolol tartrate 100 mg tablet RxNorm: 732827 TAKE O NE TABLET BY MOUTH TWICE A DAY 2018 10/04/2018 Inactive doxepin 25 mg capsule RxNorm: 4521819 TAKE ONE CAPSULE B Y MOUTH EVERY NIGHT AT BEDTIME NEEDED 2018 08/26/2018 Inactive cyclobenzaprine 10 mg tablet RxNorm: 214659 TAKE ONE TA BLET BY MOUTH THREE TIMES A DAY NEEDED FOR MUSCLE SPASMS 2018 09/29/2018 Inactive hydrocodone 10 mg-acetaminophen 325 mg tablet RxNorm: 371668 1-2 Tablet(s) QID as needed for pain MUST LAST 30 DAYS 07/29/2018 08/27/2018 Inactive (Response to an electronic controlled substance refill request - RxReferenceNumber: [id number]) nystatin 100,000 unit/gram topical powder RxNorm: 629880 Applic ation TOP BID 07/22/2018 08/04/2018 Inactive doxepin 25 mg capsule RxNorm: 3019630 1 Capsule(s) PO QHS as needed 07/22/2018 08/05/2018 Inactive triamterene 75 mg-hydrochlorothiazide 50 mg tablet RxNorm: 3 49932 TAKE ONE TABLET BY MOUTH DAILY 07/05/2018 10/02/2018 Inactive duloxetine 60 mg capsule,delayed release RxNorm: 273800 TAKE ONE CAPSULE BY MOUTH DAILY 07/05/2018 09/02/2018 Inactive Klor-Con 8 mEq tablet,extended release RxNorm: 800063 T FARRUKH ONE TABLET BY MOUTH TWICE A DAY 07/05/2018 10/02/2018 Inactive Lipitor 10 mg tablet RxNorm: 273431 TAKE ONE TABLET BY MOUTH AT BEDTIME 07/05/2018 09/02/2018 Inactive allopurinol 300 mg tablet RxNorm: 778399 TAKE ONE TABLET BY LOPEZ TH DAILY 07/05/2018 10/02/2018 Inactive clonidine HCl 0.1 mg tablet RxNorm: 894798 TAKE ONE TAB LET BY MOUTH FOUR TIMES A DAY 07/05/2018 10/02/2018 Inactive hydrocodone 10 mg-acetaminophen 325 mg tablet RxNorm: 602424 1-2 Tablet(s) QID as needed for pain MUST LAST 30 DAYS 06/28/2018 07/27/2018 Inactive (Response to an electronic controlled substance refill request - RxReferenceNumber: [id number]) MediHoney (calcium alginate-honey) 4" X 5" bandage RxNorm: 1 Application TOP QD 06/17/2018 06/26/2018 Inactive honey-hydrocolloid dressing 4" X 5" RxNorm: 1 Application TOP QD 06/17/2018 07/16/2018 Inactive furosemide 40 mg tablet RxNorm: 929054 TAKE ONE TABLET BY MOUTH EVERY MORNING NEEDED FOR EDEMA . TAKE WITH POTASSIUM 06/10/2018 07/09/2018 Inactive This is a refill request. hydrocodone 10 mg-acetaminophen 325 mg tablet RxNorm: 566943 1-2 Tablet(s) QID as needed for pain MUST LAST 30 DAYS 05/30/2018 06/27/2018 Inactive (Response to an electronic controlled substance refill request - RxReferenceNumber: [id number]) acyclovir 800 mg tablet RxNorm: 002930 1 Tablet(s) PO 5x day 201705/22/2018 Inactive Premarin 1.25 mg tablet RxNorm: 123976 1-2 Tablet(s) PO QD 05/15/2007/13/2018 Inactive cyclobenzaprine 10 mg tablet RxNorm: 880731 1 Tablet(s) PO TID as needed for muscle spasm 05/09/2018 05/08/2018 Inactive Medrol (Dustin) 4 mg tablets in a dose pack RxNorm: 670815 Tablet(s) PO As Directed 05/02/2018 06/16/2018 Inactive hydrocodone 10 mg-acetaminophen 325 mg tablet RxNorm: 554907 1-2 Tablet(s) QID as needed for pain MUST LAST 30 DAYS 04/30/2018 05/29/2018 Inactive (Response to an electronic controlled substance refill request - RxReferenceNumber: [id number]) duloxetine 60 mg capsule,delayed release RxNorm: 808407 TAKE ONE CAPSULE BY MOUTH DAILY 04/16/2018 05/15/2018 Inactive Celebrex 200 mg capsule RxNorm: 055913 TAKE ONE CAPSULE BY MOUT H TWICE A DAY 04/16/2018 06/14/2018 Inactive Singulair 10 mg tablet RxNorm: 340054 TAKE ONE TABLET BY MOUTH JOSÉ Y 04/16/2018 11/19/2018 Inactive Lipitor 10 mg tablet RxNorm: 373798 TAKE ONE TABLET BY MOUTH AT BEDTIME 04/16/2018 05/15/2018 Inactive hydrocodone 10 mg-acetaminophen 325 mg tablet RxNorm: 852054 1-2 Tablet(s) QID as needed for pain MUST LAST 30 DAYS 03/29/2018 04/27/2018 Inactive (Response to an electronic controlled substance refill request - RxReferenceNumber: [id number]) cyclobenzaprine 10 mg tablet RxNorm: 009433 1 Tablet(s) PO TID as needed for muscle spasm 03/18/2018 05/09/2018 Inactive omeprazole 40 mg capsule,delayed release RxNorm: 996319 1 Capsu le(s) PO QD 02/26/2018 08/24/2018 Inactive hydrocodone 10 mg-acetaminophen 325 mg tablet RxNorm: 759246 1-2 Tablet(s) QID as needed for pain MUST LAST 30 DAYS 02/26/2018 03/27/2018 Inactive (Response to an electronic controlled substance refill request - RxReferenceNumber: [id number]) metoprolol tartrate 100 mg tablet RxNorm: 831927 1 Tablet(s) PO BID 02/18/2018 08/05/2018 Inactive Lyrica 75 mg capsule RxNorm: 470250 1 Capsule(s) PO QHS 01/30/2018 Inactive phentermine 37.5 mg tablet RxNorm: 864607 1 Tablet(s) PO QAM 201706/16/2018 Inactive hydrocodone 10 mg-acetaminophen 325 mg tablet RxNorm: 867735 1-2 Tablet(s) QID as needed for pain MUST LAST 30 DAYS 01/29/2018 02/25/2018 Inactive (Response to an electronic controlled substance refill request - RxReferenceNumber: [id number]) Klor-Con 8 mEq tablet,extended release RxNorm: 428311 1 Tablet( s) PO BID 01/14/2018 07/04/2018 Inactive allopurinol 300 mg tablet RxNorm: 423929 1 Tablet(s) PO QD 01/15/2007/04/2018 Inactive Lipitor 10 mg tablet RxNorm: 172999 1 Tablet(s) PO QHS 01/14/201812/2017 Inactive triamterene 75 mg-hydrochlorothiazide 50 mg tablet RxNorm: 3 35387 1 Tablet(s) PO QD 01/14/2018 07/04/2018 Inactive hydrocodone 10 mg-acetaminophen 325 mg tablet RxNorm: 261945 1-2 Tablet(s) QID as needed for pain MUST LAST 30 DAYS 12/27/2017 01/25/2018 Inactive (Response to an electronic controlled substance refill request - RxReferenceNumber: [id number]) Onglyza 5 mg tablet RxNorm: 862126 1 Tablet(s) PO QD 12/18/201701/29 Inactive metformin 500 mg tablet RxNorm: 333840 1 Tablet(s) PO BID 12/11/2017 12/10/2017 Inactive metformin 500 mg tablet RxNorm: 238387 1 Tablet(s) PO BID 12/11/2017 12/17/2017 Inactive furosemide 40 mg tablet RxNorm: 283707 1 Tablet(s) PO Q AM prn edema--take with potassium 12/11/2017 06/08/2018 Inactive cyclobenzaprine 10 mg tablet RxNorm: 262807 1 Tablet(s) PO TID as needed for muscle spasm 12/11/2017 03/18/2018 Inactive hydrocodone 10 mg-acetaminophen 325 mg tablet RxNorm: 637568 1-2 Tablet(s) QID as needed for pain MUST LAST 30 DAYS 10/23/2017 11/21/2017 Inactive (Response to an electronic controlled substance refill request - RxReferenceNumber: [id number]) Lipitor 10 mg tablet RxNorm: 111452 1 Tablet(s) PO QHS 10/16/201703/2018 Inactive cyclobenzaprine 10 mg tablet RxNorm: 557333 1 Tablet(s) PO TID as needed for muscle spasm 10/09/2017 12/10/2017 Inactive hydroxyzine HCl 25 mg tablet RxNorm: 191708 1 Tablet(s) PO BID as needed for anxiety 09/20/2017 01/29/2018 Inactive Effexor XR 75 mg capsule,extended release RxNorm: 126292 1 Caps ule(s) PO QD 09/20/2017 01/29/2018 Inactive metoprolol tartrate 100 mg tablet RxNorm: 307232 1 Tablet(s) PO BID 08/20/2017 02/18/2018 Inactive baclofen 20 mg tablet RxNorm: 876190 1 Tablet(s) PO TID as needed for muscle spasm 08/20/2017 01/21/2019 Inactive clonidine HCl 0.1 mg tablet RxNorm: 498064 1 Tablet(s) PO QID 08/2005/16/2018 Inactive Seroquel 25 mg tablet RxNorm: 915056 1 Tablet(s) PO QHS 08/17/2017 Inactive Seroquel 25 mg tablet RxNorm: 707915 1 Tablet(s) PO QHS 08/17/2017 Inactive Diflucan 100 mg tablet RxNorm: 016509 TAKE ONE TABLET BY MOUTH JOSÉ Y 07/25/2017 08/07/2017 Inactive hydrocodone 10 mg-acetaminophen 325 mg tablet RxNorm: 606977 1-2 Tablet(s) QID as needed for pain MUST LAST 30 DAYS 07/19/2017 08/17/2017 Inactive (Response to an electronic controlled substance refill request - RxReferenceNumber: [id number]) clindamycin 300 mg capsule RxNorm: 584981 1 Capsule(s) PO TID 07/1907/28/2017 Inactive clotrimazole-betamethasone 1 %-0.05 % topical cream RxNorm: 753412 Application TOP BID to elbow rash 07/19/2017 06/16/2018 Inactive Singulair 10 mg tablet RxNorm: 904815 Tablet(s) TAKE ONE TABLET BY MOUTH DAILY 07/18/2017 04/13/2018 Inactive triamterene 75 mg-hydrochlorothiazide 50 mg tablet RxNorm: 3 69660 1 Tablet(s) PO QD 07/18/2017 01/14/2018 Inactive Celebrex 200 mg capsule RxNorm: 735326 Capsule(s) TAKE ONE CAPSULE BY MOUTH TWICE A DAY 07/18/2017 10/15/2017 Inactive hydrocodone 10 mg-acetaminophen 325 mg tablet RxNorm: 236598 1-2 Tablet(s) QID as needed for pain MUST LAST 30 DAYS 06/19/2017 07/18/2017 Inactive (Response to an electronic controlled substance refill request - RxReferenceNumber: [id number]) hydrocodone 10 mg-acetaminophen 325 mg tablet RxNorm: 742939 1-2 Tablet(s) QID as needed for pain MUST LAST 30 DAYS 06/19/2017 06/18/2017 Inactive (Response to an electronic controlled substance refill request - RxReferenceNumber: [id number]) baclofen 20 mg tablet RxNorm: 700246 1 Tablet(s) PO TID as needed for muscle spasm 06/18/2017 08/20/2017 Inactive Medrol (Dustin) 4 mg tablets in a dose pack RxNorm: 848735 Tablet(s) PO As Directed 06/05/2017 07/18/2017 Inactive omeprazole 40 mg capsule,delayed release RxNorm: 507584 1 Capsu le(s) PO QD 04/20/2017 10/16/2017 Inactive Premarin 1.25 mg tablet RxNorm: 816432 1-2 Tablet(s) PO QD 04/11/20 17 05/15/2018 Inactive duloxetine 60 mg capsule,delayed release RxNorm: 480727 1 Capsu le(s) PO QD 04/11/2017 09/19/2017 Inactive furosemide 40 mg tablet RxNorm: 977956 1 Tablet(s) PO Q AM prn edema--take with potassium 04/11/2017 12/11/2017 Inactive Klor-Con 8 mEq tablet,extended release RxNorm: 810816 1 Tablet( s) PO BID 04/11/2017 01/14/2018 Inactive Lipitor 10 mg tablet RxNorm: 660909 1 Tablet(s) PO QHS 04/11/201702/2018 Inactive amlodipine 5 mg-benazepril 20 mg capsule RxNorm: 483780 1 Capsu le(s) PO QD 04/11/2017 01/29/2018 Inactive allopurinol 300 mg tablet RxNorm: 060329 1 Tablet(s) PO QD 04/11/20 17 01/14/2018 Inactive clonidine HCl 0.1 mg tablet RxNorm: 473326 1 Tablet(s) PO QID 04/0508/19/2017 Inactive baclofen 20 mg tablet RxNorm: 021797 1 Tablet(s) PO TID as needed for muscle spasm 04/02/2017 06/18/2017 Inactive Premarin 1.25 mg tablet RxNorm: 570488 1-2 Tablet(s) PO QD 03/20/20 17 04/10/2017 Inactive hydrocodone 10 mg-acetaminophen 325 mg tablet RxNorm: 599957 1-2 Tablet(s) QID as needed for pain MUST LAST 30 DAYS 03/14/2017 01/21/2019 Inactive (Response to an electronic controlled substance refill request - RxReferenceNumber: [id number]) metoprolol tartrate 100 mg tablet RxNorm: 097278 1 Tablet(s) PO BID 02/12/2017 08/20/2017 Inactive hydrocodone 10 mg-acetaminophen 325 mg tablet RxNorm: 651981 1-2 Tablet(s) QID as needed for pain MUST LAST 30 DAYS 02/08/2017 03/09/2017 Inactive (Response to an electronic controlled substance refill request - RxReferenceNumber: [id number]) metoprolol tartrate 100 mg tablet RxNorm: 074867 TAKE O NE TABLET BY MOUTH TWICE A DAY 01/11/2017 02/12/2017 Inactive metoprolol tartrate 100 mg tablet RxNorm: 913745 1 Tablet(s) PO BID 12/18/2016 12/17/2016 Inactive metoprolol tartrate 100 mg tablet RxNorm: 714300 1 Tablet(s) PO BID 12/18/2016 01/10/2017 Inactive furosemide 40 mg tablet RxNorm: 898203 1 Tablet(s) PO Q AM prn edema--take with potassium 12/13/2016 02/10/2017 Inactive amitriptyline 100 mg tablet RxNorm: 170093 1 Tablet(s) PO QHS 11/2812/12/2016 Inactive baclofen 20 mg tablet RxNorm: 387873 1 Tablet(s) PO TID as needed for muscle spasm 11/14/2016 04/01/2017 Inactive triamterene 75 mg-hydrochlorothiazide 50 mg tablet RxNorm: 3 45979 1 Tablet(s) PO QD 11/14/2016 11/13/2016 Inactive metolazone 2.5 mg tablet RxNorm: 774809 TAKE ONE TABLET BY MOUTH DAILY NEEDED FOR EDEMA 11/14/2016 12/12/2016 Inactive triamterene 75 mg-hydrochlorothiazide 50 mg tablet RxNorm: 3 81138 1 Tablet(s) PO QD 11/14/2016 07/18/2017 Inactive amitriptyline 50 mg tablet RxNorm: 679222 TAKE ONE TABL ET BY MOUTH AT BEDTIME NEEDED FOR SLEEP 11/14/2016 11/27/2016 Inactive Cymbalta 60 mg capsule,delayed release RxNorm: 589922 1 Capsule (s) PO QHS 11/14/2016 12/12/2016 Inactive clonidine HCl 0.1 mg tablet RxNorm: 444131 1 Tablet(s) PO QID 11/1304/04/2017 Inactive amitriptyline 50 mg tablet RxNorm: 737799 1 Tablet(s) P O QHS as needed for sleep 11/01/2016 11/27/2016 Inactive duloxetine 60 mg capsule,delayed release RxNorm: 398504 TAKE ONE CAPSULE BY MOUTH DAILY 10/20/2016 01/17/2017 Inactive allopurinol 300 mg tablet RxNorm: 893881 TAKE ONE TABLET BY LOPEZ TH DAILY 10/20/2016 01/16/2017 Inactive Lyrica 75 mg capsule RxNorm: 232419 TAKE ONE CAPSULE BY MOUTH EVERY NIGHT AT BEDTIME 10/20/2016 12/10/2016 Inactive Klor-Con 8 mEq tablet,extended release RxNorm: 273240 T FARRUKH ONE TABLET BY MOUTH TWICE A DAY 10/20/2016 01/17/2017 Inactive Celebrex 200 mg capsule RxNorm: 507413 TAKE ONE CAPSULE BY MOUT H TWICE A DAY 10/20/2016 07/18/2017 Inactive Bystolic 10 mg tablet RxNorm: 349554 TAKE ONE TABLET BY MOUTH EVERY NIGHT AT BEDTIME 10/20/2016 12/17/2016 Inactive amlodipine 5 mg-benazepril 20 mg capsule RxNorm: 455093 TAKE ONE CAPSULE BY MOUTH EVERY NIGHT AT BEDTIME -- TO REPLACE AMLODOPINE 10/20/20162016 Inactive Lipitor 10 mg tablet RxNorm: 498834 TAKE ONE TABLET BY MOUTH EVERY NIGHT AT BEDTIME 10/20/2016 01/17/2017 Inactive alprazolam 0.5 mg tablet RxNorm: 868832 3 Tablet(s) PO QHS as needed for sleep/anxiety 09/20/2016 10/31/2016 Inactive Tamiflu 75 mg capsule RxNorm: 449641 1 Capsule(s) PO QD 09/19/2016 Inactive Lyrica 75 mg capsule RxNorm: 092550 1 Capsule(s) PO QHS 09/19/2016 Inactive prednisone 20 mg tablet RxNorm: 171642 1 Tablet(s) PO QD 08/10/2016 1 10/17/2015 Inactive doxycycline hyclate 100 mg capsule RxNorm: 0501500 1 Capsule(s) PO BID 08/10/2016 08/19/2016 Inactive Medrol (Dustin) 4 mg tablets in a dose pack RxNorm: 286905 Tablet(s) PO As Directed 07/31/2016 08/22/2016 Inactive Singulair 10 mg tablet RxNorm: 154620 TAKE ONE TABLET BY MOUTH JOSÉ Y 07/27/2016 07/18/2017 Inactive hydrocodone 10 mg-acetaminophen 325 mg tablet RxNorm: 346416 1-2 Tablet(s) QID as needed for pain MUST LAST 30 DAYS 07/26/2016 08/24/2016 Inactive (Response to an electronic controlled substance refill request - RxReferenceNumber: [id number]) alprazolam 0.5 mg tablet RxNorm: 411840 3 Tablet(s) PO QHS as needed for anxiety or sleep 07/26/2016 09/20/2016 Inactive clindamycin 300 mg capsule RxNorm: 841697 1 Capsule(s) PO TID 07/2007/29/2016 Inactive Diflucan 100 mg tablet RxNorm: 256747 1 Tablet(s) PO QD 07/20/2016 Inactive Levaquin 500 mg tablet RxNorm: 226109 1 Tablet(s) PO QD 07/17/2016 Inactive Levaquin 500 mg tablet RxNorm: 695309 1 Tablet(s) PO QD 07/10/2016 Inactive Levaquin 500 mg tablet RxNorm: 485820 1 Tablet(s) PO QD 07/10/2016 Inactive mupirocin 2 % topical ointment RxNorm: 881856 TOP Apply topically to affected areas twice daily 07/06/2016 09/18/2016 Inactive Singulair 10 mg tablet RxNorm: 406510 TAKE ONE TABLET BY MOUTH JOSÉ Y 06/21/2016 01/21/2019 Inactive alprazolam 0.5 mg tablet RxNorm: 232267 TAKE THREE TABL ETS BY MOUTH AT BEDTIME NEEDED FOR SLEEP OR STRESS 05/22/2016 06/20/2016 Inactive triamterene 75 mg-hydrochlorothiazide 50 mg tablet RxNorm: 3 06389 1 Tablet(s) PO QD 04/26/2016 10/21/2016 Inactive Premarin 1.25 mg tablet RxNorm: 885351 1-2 Tablet(s) PO QD 04/26/20 16 03/20/2017 Inactive Klor-Con 8 mEq tablet,extended release RxNorm: 130209 1 Tablet( s) PO BID 04/26/2016 10/19/2016 Inactive Celebrex 200 mg capsule RxNorm: 187827 1 Capsule(s) PO BID TAKE ONE CAPSULE BY MOUTH EVERY DAY 04/26/2016 10/19/2016 Inactive Lipitor 10 mg tablet RxNorm: 693485 1 Tablet(s) PO QHS 04/26/201605/2017 Inactive allopurinol 300 mg tablet RxNorm: 680872 1 Tablet(s) PO QD TAKE ONE TABLET BY MOUTH EVERY DAY 04/26/2016 10/19/2016 Inactive amlodipine 5 mg-benazepril 20 mg capsule RxNorm: 584650 1 Capsule(s) PO QHS replaces amlodopine 04/26/2016 10/19/2016 Inactive duloxetine 60 mg capsule,delayed release RxNorm: 101405 1 Capsu le(s) PO QD 04/26/2016 10/19/2016 Inactive Bystolic 10 mg tablet RxNorm: 964024 1 Tablet(s) PO QHS 04/26/2016 Inactive Singulair 10 mg tablet RxNorm: 063483 1 Tablet(s) PO QD TAKE ONE TABLET BY MOUTH DAILY 04/26/2016 06/20/2016 Inactive clonidine HCl 0.1 mg tablet RxNorm: 461028 1 Tablet(s) PO QID 04/2610/22/2016 Inactive hydrocodone 10 mg-acetaminophen 325 mg tablet RxNorm: 893945 1-2 Tablet(s) QID as needed for pain TAKE ONE TO TWO TABLETS BY MOUTH FOUR TIMES A DAY . MUST LAST 30 DAYS 03/31/2016 04/29/2016 Inactive (Response to an electronic controlled substance refill request - RxReferenceNumber: [id number]) Klor-Con 8 mEq tablet,extended release RxNorm: 986039 T FARRUKH ONE TABLET BY MOUTH TWICE A DAY 03/24/2016 09/29/2019 Inactive prednisone 20 mg tablet RxNorm: 782654 1 Tablet(s) PO QD 03/09/2016 0 03/08/2016 Inactive prednisone 20 mg tablet RxNorm: 757177 1 Tablet(s) PO QD 03/09/2016 0 03/13/2016 Inactive alprazolam 0.5 mg tablet RxNorm: 447273 3 Tablet(s) PO QHS as needed for sleep/stress 03/02/2016 01/21/2019 Inactive mupirocin 2 % topical ointment RxNorm: 854427 TOP twice daily to affected areas of face and neck 02/21/2016 04/25/2016 Inactive clonidine HCl 0.1 mg tablet RxNorm: 129379 TAKE ONE TAB LET BY MOUTH FOUR TIMES A DAY 02/15/2016 09/29/2019 Inactive clonidine HCl 0.1 mg tablet RxNorm: 856175 1 Tablet(s) PO QID 02/1404/25/2016 Inactive Premarin 1.25 mg tablet RxNorm: 998496 1-2 Tablet(s) PO QD 02/15/20 16 03/15/2016 Inactive Klor-Con 8 mEq tablet,extended release RxNorm: 589085 T FARRUKH ONE TABLET BY MOUTH TWICE A DAY 02/15/2016 03/15/2016 Inactive potassium chloride ER 20 mEq tablet,extended release(part/cr yst) RxNorm: 337582 2 Tablet(s) PO BID 02/15/2016 03/15/2016 Inactive Macrobid 100 mg capsule RxNorm: 429443 1 Capsule(s) PO BID 01/24/20 16 01/30/2016 Inactive prednisone 20 mg tablet RxNorm: 030198 Take 3tabs PO QD x 2 days, then 2 tabs PO QD x 2 days, then 1 tab PO QD x 2 days, then 1/2 tab PO QDy x 2 days 12/23/2015 04/25/2016 Inactive Klor-Con 8 mEq tablet,extended release RxNorm: 490792 T FARRUKH ONE TABLET BY MOUTH TWICE A DAY 12/20/2015 02/14/2016 Inactive alprazolam 1 mg tablet RxNorm: 754970 1 1/2 Tablet(s) PO QHS 201501/23/2016 Inactive nystatin 100,000 unit/gram topical cream RxNorm: 977496 APPLY TO AFFECTED AREA(S) TWO TIMES A DAY 11/30/2015 12/14/2015 Inactive Singulair 10 mg tablet RxNorm: 451930 TAKE ONE TABLET BY MOUTH JOSÉ Y 11/18/2015 04/25/2016 Inactive allopurinol 300 mg tablet RxNorm: 189425 1 Tablet(s) PO QD TAKE ONE TABLET BY MOUTH EVERY DAY 10/26/2015 04/22/2016 Inactive Singulair 10 mg tablet RxNorm: 793949 TAKE ONE TABLET BY MOUTH JOSÉ Y 10/26/2015 11/17/2015 Inactive duloxetine 60 mg capsule,delayed release RxNorm: 523115 1 Capsu le(s) PO QD 10/26/2015 04/22/2016 Inactive triamterene 75 mg-hydrochlorothiazide 50 mg tablet RxNorm: 3 38061 1 Tablet(s) PO QD 10/26/2015 11/14/2016 Inactive potassium chloride ER 20 mEq tablet,extended release(part/cr yst) RxNorm: 730934 2 Tablet(s) PO BID 10/26/2015 02/14/2016 Inactive Lipitor 10 mg tablet RxNorm: 099891 1 Tablet(s) PO QHS 10/26/2015 Inactive amlodipine 5 mg-benazepril 20 mg capsule RxNorm: 136474 1 Capsule(s) PO QHS replaces amlodopine 10/26/2015 04/22/2016 Inactive Bystolic 10 mg tablet RxNorm: 058234 1 Tablet(s) PO QHS 10/26/2015 Inactive amlodipine 5 mg-benazepril 20 mg capsule RxNorm: 345659 1 Capsule(s) PO QHS replaces amlodopine 10/06/2015 10/25/2015 Inactive amlodipine 5 mg tablet RxNorm: 807364 1 Tablet(s) PO QHS 09/30/2015 0 04/25/2016 Inactive metolazone 2.5 mg tablet RxNorm: 529446 TAKE ONE TABLET BY MOUTH DAILY NEEDED FOR EDEMA 09/30/2015 01/21/2019 Inactive duloxetine 60 mg capsule,delayed release RxNorm: 285263 1 Capsu le(s) PO QD 09/30/2015 10/25/2015 Inactive cephalexin 500 mg capsule RxNorm: 268360 1 Capsule(s) PO BID 201509/23/2015 Inactive mupirocin 2 % topical ointment RxNorm: 494517 TOP twice daily to affected areas of face and neck 09/14/2015 02/20/2016 Inactive baclofen 20 mg tablet RxNorm: 714273 1 Tablet(s) PO TID as needed for muscle spasm 09/01/2015 11/14/2016 Inactive clonidine HCl 0.1 mg tablet RxNorm: 049762 1 Tablet(s) PO QID 09/0102/14/2016 Inactive alprazolam 1 mg tablet RxNorm: 530615 1 1/2 Tablet(s) PO QHS 201409/09/2015 Inactive baclofen 20 mg tablet RxNorm: 164247 1 Tablet(s) PO TID as needed for muscle spasm 07/23/2015 09/01/2015 Inactive omeprazole 40 mg capsule,delayed release RxNorm: 600233 1 Capsu le(s) PO QD 07/23/2015 04/25/2016 Inactive alprazolam 1 mg tablet RxNorm: 480646 1 1/2 Tablet(s) PO QHS 201408/10/2015 Inactive Bystolic 10 mg tablet RxNorm: 472305 1 Tablet(s) PO BID 06/24/2015 Inactive allopurinol 300 mg tablet RxNorm: 255861 1 Tablet(s) PO QD TAKE ONE TABLET BY MOUTH EVERY DAY 06/23/2015 10/20/2015 Inactive alprazolam 1 mg tablet RxNorm: 752315 1 1/2 Tablet(s) PO QHS 201407/06/2015 Inactive clonidine HCl 0.1 mg tablet RxNorm: 493714 1 Tablet(s) PO QID 06/0209/01/2015 Inactive clonidine HCl 0.1 mg tablet RxNorm: 118883 1 Tablet(s) PO QID 06/0206/01/2015 Inactive Cymbalta 60 mg capsule,delayed release RxNorm: 379646 1 Capsule (s) PO QHS 06/02/2015 08/30/2015 Inactive Cymbalta 60 mg capsule,delayed release RxNorm: 959099 1 Capsule (s) PO QHS 06/02/2015 06/01/2015 Inactive clonidine HCl 0.1 mg tablet RxNorm: 546992 1 Tablet(s) PO TID 05/3106/01/2015 Inactive replaces 0.2mg dose metolazone 2.5 mg tablet RxNorm: 071322 TAKE ONE TABLET BY MOUTH DAILY NEEDED FOR EDEMA 05/21/2015 06/19/2015 Inactive Singulair 10 mg tablet RxNorm: 825877 TAKE ONE TABLET BY MOUTH JOSÉ Y 05/21/2015 10/17/2015 Inactive Cymbalta 30 mg capsule,delayed release RxNorm: 580417 1 Capsule (s) PO QHS 05/20/2015 11/14/2016 Inactive betamethasone valerate 0.1 % topical cream RxNorm: 956489 Appli cation TOP BID 05/10/2015 04/25/2016 Inactive Bactroban 2 % topical ointment RxNorm: 330832 Application TOP BID 0 05/10/2015 06/20/2015 Inactive baclofen 20 mg tablet RxNorm: 711164 1 Tablet(s) PO TID as needed 0 04/26/2015 07/23/2015 Inactive Lipitor 10 mg tablet RxNorm: 914581 1 Tablet(s) PO QHS 04/26/201508/2016 Inactive clonidine HCl 0.1 mg tablet RxNorm: 202759 1 Tablet(s) PO TID 04/2605/30/2015 Inactive replaces 0.2mg dose Klor-Con 8 mEq tablet,extended release RxNorm: 421077 1 Tablet( s) PO BID 04/26/2015 04/25/2016 Inactive metolazone 2.5 mg tablet RxNorm: 296576 1 Tablet(s) PO QD as ne eded for edema 04/26/2015 04/25/2015 Inactive triamterene 75 mg-hydrochlorothiazide 50 mg tablet RxNorm: 3 69272 1 Tablet(s) PO QD 04/26/2015 10/22/2015 Inactive Premarin 1.25 mg tablet RxNorm: 484047 1-2 Tablet(s) PO QD 04/26/20 15 10/22/2015 Inactive Bystolic 10 mg tablet RxNorm: 643887 1 Tablet(s) PO QAM TAKE ONE TABLET BY MOUTH EVERY MORNING 04/23/2015 06/23/2015 Inactive clonidine HCl 0.1 mg tablet RxNorm: 147032 1 Tablet(s) PO TID 03/2304/25/2015 Inactive replaces 0.2mg dose nystatin 100,000 unit/gram topical cream RxNorm: 702791 Applica tion TOP BID 03/23/2015 06/20/2015 Inactive baclofen 20 mg tablet RxNorm: 905909 1 Tablet(s) PO TID as needed 0 03/23/2015 04/25/2015 Inactive Premarin 1.25 mg tablet RxNorm: 932277 1-2 Tablet(s) PO QD 03/23/20 15 04/25/2015 Inactive Klor-Con 8 mEq tablet,extended release RxNorm: 806109 1 Tablet( s) PO BID 03/23/2015 04/25/2015 Inactive cefdinir 300 mg capsule RxNorm: 771257 2 Capsule(s) PO QD 03/16/2015 03/25/2015 Inactive baclofen 20 mg tablet RxNorm: 430390 1 Tablet(s) PO TID as needed 0 03/02/2015 03/22/2015 Inactive allopurinol 300 mg tablet RxNorm: 427137 1 Tablet(s) PO QD TAKE ONE TABLET BY MOUTH EVERY DAY 02/22/2015 05/22/2015 Inactive Klor-Con M20 mEq tablet,extended release RxNorm: 550187 2 Tablet(s) PO BID to use with lasix 02/22/2015 06/20/2015 Inactive clonidine HCl 0.1 mg tablet RxNorm: 419666 1 Tablet(s) PO TID 02/1903/22/2015 Inactive replaces 0.2mg dose Lipitor 10 mg tablet RxNorm: 028699 1 Tablet(s) PO QHS 01/20/201506/2015 Inactive Lipitor 10 mg tablet RxNorm: 229017 1 Tablet(s) PO QHS 01/20/2015 Inactive Singulair 10 mg tablet RxNorm: 549010 1 Tablet(s) PO QD TAKE ONE TABLET BY MOUTH EVERY DAY 11/20/2014 05/18/2015 Inactive Lipitor 10 mg tablet RxNorm: 439174 1 Tablet(s) PO QHS 11/20/201408/2015 Inactive allopurinol 300 mg tablet RxNorm: 395984 1 Tablet(s) PO QD TAKE ONE TABLET BY MOUTH EVERY DAY 11/20/2014 02/16/2015 Inactive Bystolic 10 mg tablet RxNorm: 853634 1 Tablet(s) PO QAM TAKE ONE TABLET BY MOUTH EVERY MORNING 11/20/2014 04/22/2015 Inactive Klor-Con 8 mEq tablet,extended release RxNorm: 336688 1 Tablet( s) PO BID 11/20/2014 02/17/2015 Inactive baclofen 20 mg tablet RxNorm: 983138 1 Tablet(s) PO TID as needed 0 11/20/2014 01/21/2019 Inactive baclofen 20 mg tablet RxNorm: 206665 1 Tablet(s) PO TID as needed 0 10/27/2014 11/19/2014 Inactive baclofen 20 mg tablet RxNorm: 838972 1 Tablet(s) PO TID as needed 0 10/26/2014 03/01/2015 Inactive allopurinol 300 mg tablet RxNorm: 776888 1 Tablet(s) PO QD TAKE ONE TABLET BY MOUTH EVERY DAY 10/26/2014 11/20/2014 Inactive Bystolic 10 mg tablet RxNorm: 364129 1 Tablet(s) PO QAM TAKE ONE TABLET BY MOUTH EVERY MORNING 10/26/2014 11/20/2014 Inactive clonidine HCl 0.1 mg tablet RxNorm: 741764 1 Tablet(s) PO TID 09/2805/27/2019 Inactive replaces 0.2mg dose clonidine HCl 0.1 mg tablet RxNorm: 094155 1 Tablet(s) PO TID 09/2802/18/2015 Inactive replaces 0.2mg dose baclofen 20 mg tablet RxNorm: 375563 1 Tablet(s) PO TID as needed 1 11/01/2013 08/30/2014 Inactive Lipitor 10 mg tablet RxNorm: 612561 1 Tablet(s) PO QHS 08/31/2014 Inactive baclofen 20 mg tablet RxNorm: 500963 1 Tablet(s) PO TID as needed 1 11/01/2013 10/26/2014 Inactive triamterene 75 mg-hydrochlorothiazide 50 mg tablet RxNorm: 3 87392 1 Tablet(s) PO QD 08/31/2014 02/26/2015 Inactive Klor-Con 8 mEq tablet,extended release RxNorm: 451968 1 Tablet( s) PO BID 08/31/2014 11/20/2014 Inactive baclofen 20 mg tablet RxNorm: 484110 1 Tablet(s) PO TID as needed 1 09/30/2013 10/25/2014 Inactive baclofen 20 mg tablet RxNorm: 092427 1 Tablet(s) PO TID as needed 1 09/30/2013 08/31/2014 Inactive omeprazole 40 mg capsule,delayed release RxNorm: 708587 1 Capsu le(s) PO QD 07/21/2014 07/23/2015 Inactive Flonase 50 mcg/actuation nasal spray,suspension RxNorm: 8963 23 1 [place] NASAL BID 07/15/2014 04/09/2017 Inactive hydrocodone 10 mg-acetaminophen 325 mg tablet RxNorm: 980283 1-2 Tablet(s) QID as needed for pain TAKE ONE TO TWO TABLETS BY MOUTH FOUR TIMES A DAY . MUST LAST 30 DAYS 06/30/2014 07/27/2014 Inactive (Response to an electronic controlled substance refill request - RxReferenceNumber: [id number]) baclofen 20 mg tablet RxNorm: 998938 1 Tablet(s) PO TID as needed 1 07/31/2014 Inactive Singulair 10 mg tablet RxNorm: 438089 1 Tablet(s) PO QD TAKE ONE TABLET BY MOUTH EVERY DAY 05/25/2014 11/20/2014 Inactive Bystolic 10 mg tablet RxNorm: 279115 TAKE ONE TABLET BY MOUTH E VERY MORNING 05/25/2014 09/21/2014 Inactive allopurinol 300 mg tablet RxNorm: 150390 1 Tablet(s) PO QD TAKE ONE TABLET BY MOUTH EVERY DAY 05/25/2014 10/21/2014 Inactive baclofen 20 mg tablet RxNorm: 232050 1 Tablet(s) PO TID as needed 0 05/25/2014 06/29/2014 Inactive allopurinol 300 mg tablet RxNorm: 636664 TAKE ONE TABLET BY LOPEZ TH EVERY DAY 05/25/2014 09/21/2014 Inactive Singulair 10 mg tablet RxNorm: 716278 1 Tablet(s) PO QD TAKE ONE TABLET BY MOUTH EVERY DAY 05/25/2014 05/24/2014 Inactive Bystolic 10 mg tablet RxNorm: 581574 1 Tablet(s) PO QAM TAKE ONE TABLET BY MOUTH EVERY MORNING 05/25/2014 10/21/2014 Inactive metolazone 2.5 mg tablet RxNorm: 712441 1 Tablet(s) PO QD as ne eded for edema 05/18/2014 04/25/2015 Inactive Lasix 40 mg tablet RxNorm: 771894 1 Tablet(s) PO QAM s hould take potassium supplementation with this medication 05/14/2014 05/17/2014 Inactive hydrocodone 10 mg-acetaminophen 325 mg tablet RxNorm: 110197 1-2 Tablet(s) QID as needed for pain TAKE ONE TO TWO TABLETS BY MOUTH FOUR TIMES A DAY . MUST LAST 30 DAYS 05/07/2014 06/05/2014 Inactive (Response to an electronic controlled substance refill request - RxReferenceNumber: [id number]) alprazolam 0.5 mg tablet RxNorm: 402935 TAKE ONE TABLET BY MOUTH TWICE A DAY , MUST LAST 30 DAYS 05/07/2014 05/22/2016 Inactive (Response to a n electronic controlled substance refill request - RxReferenceNumber: [id number]) diclofenac sodium 75 mg tablet,delayed release RxNorm: 48318 6 1 Tablet(s) PO BID for pain 04/24/2014 07/20/2014 Inactive Celebrex 200 mg capsule RxNorm: 932131 TAKE ONE CAPSULE BY MOUT H EVERY DAY 04/24/2014 07/20/2014 Inactive alprazolam 0.5 mg tablet RxNorm: 817260 TAKE ONE TABLET BY MOUTH TWICE A DAY , MUST LAST 30 DAYS 03/24/2014 04/22/2014 Inactive (Response to a n electronic controlled substance refill request - RxReferenceNumber: [id number]) diclofenac sodium 75 mg tablet,delayed release RxNorm: 96967 6 1 Tablet(s) PO BID for pain 03/24/2014 04/24/2014 Inactive clonidine HCl 0.1 mg tablet RxNorm: 743502 1 Tablet(s) PO TID 03/2409/28/2014 Inactive replaces 0.2mg dose Klor-Con 8 mEq tablet,extended release RxNorm: 872961 1 Tablet( s) PO BID 02/26/2014 08/31/2014 Inactive diclofenac sodium 75 mg tablet,delayed release RxNorm: 79606 6 1 Tablet(s) PO BID for pain 02/25/2014 03/24/2014 Inactive hydrocodone 10 mg-acetaminophen 325 mg tablet RxNorm: 801787 1-2 Tablet(s) QID as needed for pain TAKE ONE TO TWO TABLETS BY MOUTH FOUR TIMES A DAY . MUST LAST 30 DAYS 02/25/2014 03/26/2014 Inactive (Response to an electronic controlled substance refill request - RxReferenceNumber: [id number]) alprazolam 0.5 mg tablet RxNorm: 959623 Tablet(s) PO BI D as needed for anxiety TAKE ONE TABLET BY MOUTH TWICE A DAY , MUST LAST 30 DAYS 02/25/2014 Inactive (Response to an electronic controlled [place] bstance refill request - RxReferenceNumber: [id number]) [AttnRPh: Saving apply/adjudicate RxGRP:SG20 RxBIN:[id number] RxPCN: ID#:[id number]] alprazolam 0.5 mg tablet RxNorm: 579803 Tablet(s) TAKE ONE TABLET BY MOUTH TWICE A DAY , MUST LAST 30 DAYS 01/27/2014 02/24/2014 Inactive (Respo nse to an electronic controlled substance refill request - RxReferenceNumber: [id number]) [AttnRPh: Saving apply/adjudicate RxGRP:SG20 RxBIN:[id number] RxPCN: ID#:[id number]] hydrocodone 10 mg-acetaminophen 325 mg tablet RxNorm: 892552 1-2 Tablet(s) QID as needed for pain TAKE ONE TO TWO TABLETS BY MOUTH FOUR TIMES A DAY . MUST LAST 30 DAYS 01/27/2014 02/24/2014 Inactive (Response to an electronic controlled substance refill request - RxReferenceNumber: [id number]) alprazolam 0.5 mg tablet RxNorm: 982066 TAKE ONE TABLET BY MOUTH TWICE A DAY , MUST LAST 30 DAYS 01/27/2014 01/26/2014 Inactive (Response to a n electronic controlled substance refill request - RxReferenceNumber: [id number]) Premarin 1.25 mg tablet RxNorm: 033674 1-2 Tablet(s) PO QD 01/28/20 14 07/25/2014 Inactive alprazolam 0.5 mg tablet RxNorm: 640454 TAKE ONE TABLET BY MOUTH TWICE A DAY , MUST LAST 30 DAYS 01/27/2014 01/27/2014 Inactive (Response to a n electronic controlled substance refill request - RxReferenceNumber: [id number]) hydrocodone 10 mg-acetaminophen 325 mg tablet RxNorm: 309265 TAKE ONE TO TWO TABLETS BY MOUTH FOUR TIMES A DAY . MUST LAST 30 DAYS 01/27/20142013 Inactive (Response to an electronic controlled [place] bstance refill request - RxReferenceNumber: [id number]) Celebrex 200 mg capsule RxNorm: 858844 1 Capsule(s) PO QD TAKE ONE CAPSULE BY MOUTH EVERY DAY 12/29/2013 04/27/2014 Inactive hydrocodone 10 mg-acetaminophen 325 mg tablet RxNorm: 881988 1-2 Tablet(s) PO QID as needed for severe pain 12/29/2013 01/27/2014 Inactive allopurinol 300 mg tablet RxNorm: 847782 1 Tablet(s) PO QD TAKE ONE TABLET BY MOUTH EVERY DAY 12/29/2013 05/24/2014 Inactive alprazolam 0.5 mg tablet RxNorm: 463768 TAKE ONE TABLET BY MOUTH TWICE A DAY , MUST LAST 30 DAYS 12/29/2013 01/27/2014 Inactive (Response to a n electronic controlled substance refill request - RxReferenceNumber: [id number]) Celebrex 200 mg capsule RxNorm: 896886 1 Capsule(s) PO QD TAKE ONE CAPSULE BY MOUTH EVERY DAY 12/29/2013 12/29/2013 Inactive Bystolic 10 mg tablet RxNorm: 083446 1 Tablet(s) PO QAM TAKE ONE TABLET BY MOUTH EVERY MORNING 12/29/2013 05/24/2014 Inactive Bystolic 10 mg tablet RxNorm: 510094 1 Tablet(s) PO QAM TAKE ONE TABLET BY MOUTH EVERY MORNING 12/29/2013 12/29/2013 Inactive Singulair 10 mg tablet RxNorm: 730321 1 Tablet(s) PO QD TAKE ONE TABLET BY MOUTH EVERY DAY 12/29/2013 05/25/2014 Inactive hydrocodone 10 mg-acetaminophen 325 mg tablet RxNorm: 633576 TAKE ONE TO TWO TABLETS BY MOUTH FOUR TIMES A DAY . MUST LAST 30 DAYS 12/29/20132013 Inactive (Response to an electronic controlled [place] bstance refill request - RxReferenceNumber: [id number]) Trazadone 75mg Tablet RxNorm: 1 Tablet(s) PO QHS as needed 03/23/2014 Inactive Trazadone 75mg Tablet RxNorm: 1 Tablet(s) PO QHS 12/24/20132014 Inactive Soma 350 mg tablet RxNorm: 488933 Tablet(s) PO TAKE ON E TABLET BY MOUTH THREE TIMES A DAY NEEDED FOR MUSCLE SPASMS. THIS MUST LAST 30 DAYS BETWEEN REFILLS. 12/10/2013 12/22/2013 Inactive (Appended: Cont rolled substance eRx refill - RxReferenceNumber: [id number]) diclofenac sodium 75 mg tablet,delayed release RxNorm: 90724 6 1 Tablet(s) PO BID for pain 12/10/2013 02/24/2014 Inactive allopurinol 300 mg tablet RxNorm: 902467 1 Tablet(s) PO QD 11/20/19 14 12/29/2013 Inactive alprazolam 0.5 mg tablet RxNorm: 129883 2 Tablet(s) PO BID 11/13/19 14 12/29/2013 Inactive prn clonidine 0.1 mg tablet RxNorm: 305426 1 Tablet(s) PO TID 11/12/2013 02/09/2014 Inactive replaces 0.2mg dose Klor-Con M20 mEq tablet,extended release RxNorm: 516099 2 Tablet(s) PO BID to use with lasix 11/12/2013 05/10/2014 Inactive Singulair 10 mg tablet RxNorm: 286998 1 Tablet(s) PO QD 11/12/2013 Inactive hydrocodone 10 mg-acetaminophen 325 mg tablet RxNorm: 170834 1-2 Tablet(s) PO QID as needed for severe pain 11/12/2013 12/28/2013 Inactive Bystolic 10 mg tablet RxNorm: 021935 1 Tablet(s) PO QAM 11/12/2013 Inactive Soma 350 mg tablet RxNorm: 485387 Tablet(s) PO TAKE ON E TABLET BY MOUTH THREE TIMES A DAY NEEDED FOR MUSCLE SPASMS. THIS MUST LAST 30 DAYS BETWEEN REFILLS. 10/13/2013 12/10/2013 Inactive (Appended: Cont rolled substance eRx refill - RxReferenceNumber: [id number]) hydrocodone 10 mg-acetaminophen 325 mg tablet RxNorm: 183985 1-2 Tablet(s) PO QID as needed for severe pain 10/03/2013 11/11/2013 Inactive diclofenac sodium 75 mg tablet,delayed release RxNorm: 70139 8 1 Tablet(s) PO BID for pain 09/11/2013 12/10/2013 Inactive alprazolam 0.5 mg tablet RxNorm: 777518 1 Tablet(s) PO BID May refill on 04/26/13 09/01/2013 10/30/2013 Inactive prn hydrocodone 10 mg-acetaminophen 325 mg tablet RxNorm: 786241 1-2 Tablet(s) PO QID as needed for severe pain 09/01/2013 10/02/2013 Inactive triamterene 75 mg-hydrochlorothiazide 50 mg tablet RxNorm: 3 19586 1 Tablet(s) PO QD 08/04/2013 08/31/2014 Inactive cyclobenzaprine 10 mg tablet RxNorm: 584691 1 Tablet(s) PO TID prn spasm 08/04/2013 08/13/2013 Inactive clonidine 0.1 mg tablet RxNorm: 354825 1 Tablet(s) PO TID 08/04/2013 11/11/2013 Inactive replaces 0.2mg dose cyclobenzaprine 10 mg tablet RxNorm: 487795 1 Tablet(s) PO TID prn spasm 07/23/2013 08/01/2013 Inactive hydrocodone 10 mg-acetaminophen 325 mg tablet RxNorm: 513129 2 1-2 Tablet(s) PO QID as needed for severe pain 06/09/2013 08/07/2013 Inactive Singulair 10 mg tablet RxNorm: 121913 1 Tablet(s) PO QD 05/29/2013 Inactive Klor-Con 8 mEq tablet,extended release RxNorm: 666785 1 Tablet( s) PO BID 05/29/2013 02/26/2014 Inactive allopurinol 300 mg tablet RxNorm: 437675 1 Tablet(s) PO QD 05/29/20 13 11/19/2013 Inactive Bystolic 10 mg tablet RxNorm: 274421 1 Tablet(s) PO QAM take one daily in the morning. 05/29/2013 11/11/2013 Inactive scopolamine 1.5 mg 72 hr Transderm Patch RxNorm: 907019 Application TD Q72H for motion sickness 05/26/2013 07/22/2013 Inactive Soma 350 mg tablet RxNorm: 756382 1 Tablet(s) PO TID as needed for spasm 05/19/2013 10/13/2013 Inactive diclofenac sodium 75 mg tablet,delayed release RxNorm: 28232 8 1 Tablet(s) PO BID for pain 05/14/2013 07/22/2013 Inactive allopurinol 300 mg tablet RxNorm: 575460 1 Tablet(s) PO QD 04/25/20 13 05/28/2013 Inactive alprazolam 0.5 mg tablet RxNorm: 177892 1 Tablet(s) PO BID May refill on 04/26/13 04/25/2013 06/23/2013 Inactive prn Celebrex 200 mg capsule RxNorm: 509025 1 Capsule(s) PO QD 04/16/2013 12/29/2013 Inactive alprazolam 0.5 mg tablet RxNorm: 047218 1 Tablet(s) PO BID May refill on 04/26/13 04/16/2013 04/24/2013 Inactive prn Soma 350 mg tablet RxNorm: 269715 1 Tablet(s) PO TID as needed for spasm 04/16/2013 No Stop Date Active Lasix 40 mg tablet RxNorm: 126779 1 Tablet(s) PO QAKaran phillips hould take potassium supplementation with this medication 04/16/2013 06/14/2013 Inactive clonidine 0.1 mg tablet RxNorm: 827736 1 Tablet(s) PO TID 04/16/2013 08/03/2013 Inactive replaces 0.2mg dose prednisone 20 mg tablet RxNorm: 126140 1 Tablet(s) PO BID 04/16/2013 04/20/2013 Inactive diclofenac sodium 75 mg tablet,delayed release RxNorm: 53739 8 1 Tablet(s) PO BID for pain 04/14/2013 05/13/2013 Inactive hydrocodone 10 mg-acetaminophen 325 mg tablet RxNorm: 684680 2 1-2 Tablet(s) PO QID as needed for severe pain 04/14/2013 No Stop Date Active Lasix 40 mg tablet RxNorm: 524826 1 Tablet(s) PO QAM s hould take potassium supplementation with this medication 03/31/2013 04/15/2013 Inactive Celebrex 200 mg capsule RxNorm: 513909 1 Capsule(s) PO QD 03/31/2013 04/15/2013 Inactive alprazolam 0.5 mg tablet RxNorm: 942388 1 Tablet(s) PO BID 03/28/2004/15/2013 Inactive prn hydrocodone 10 mg-acetaminophen 325 mg tablet RxNorm: 387897 2 1-2 Tablet(s) PO QID as needed for severe pain 03/10/2013 No Stop Date Active metformin ER 500 mg 24 hr tablet,extended release RxNorm: 86 1018 1 Tablet(s) PO QD 03/06/2013 07/22/2013 Inactive clindamycin 300 mg capsule RxNorm: 115563 2 Capsule(s) PO TID 03/0503/14/2013 Inactive Zaroxolyn 2.5 mg tablet RxNorm: 608988 1 Tablet(s) PO QAM 03/05/2013 05/19/2015 Inactive amlodipine 10 mg tablet RxNorm: 555829 1 Tablet(s) PO QD 03/03/2013 0 05/25/2013 Inactive Norvasc 10 mg tablet RxNorm: 875695 1 Tablet(s) PO QD 02/28/201307/11 Inactive Celebrex 200 mg capsule RxNorm: 506596 1 Capsule(s) PO QD 02/28/2013 03/30/2013 Inactive diclofenac sodium 75 mg tablet,delayed release RxNorm: 97637 8 1 Tablet(s) PO BID for pain 02/14/2013 03/15/2013 Inactive Soma 350 mg tablet RxNorm: 517903 1 Tablet(s) PO TID as needed for spasm 02/14/2013 No Stop Date Active hydrocodone 10 mg-acetaminophen 325 mg tablet RxNorm: 656359 2 1-2 Tablet(s) PO QID as needed for severe pain 02/14/2013 No Stop Date Active Norvasc 10 mg tablet RxNorm: 367523 1 Tablet(s) PO QD 02/10/201302/09 Inactive Celebrex 200 mg capsule RxNorm: 055176 1 Capsule(s) PO QD 01/27/2013 01/26/2013 Inactive Premarin 1.25 mg tablet RxNorm: 514182 1-2 Tablet(s) PO QD 01/28/20 13 06/25/2013 Inactive alprazolam 0.5 mg tablet RxNorm: 686864 1 Tablet(s) PO BID 01/28/20 13 02/25/2013 Inactive prn amlodipine 5 mg tablet RxNorm: 977327 1 Tablet(s) PO QD 01/27/2013 Inactive Celebrex 200 mg capsule RxNorm: 749189 1 Capsule(s) PO QD 01/27/2013 02/27/2013 Inactive gabapentin 600 mg tablet RxNorm: 399435 1 Tablet(s) PO QHS 01/16/20 13 07/22/2013 Inactive Soma 350 mg tablet RxNorm: 599991 1 Tablet(s) PO TID as needed for spasm 01/15/2013 No Stop Date Active hydrocodone 10 mg-acetaminophen 325 mg tablet RxNorm: 240481 2 1-2 Tablet(s) PO QID as needed for severe pain 01/15/2013 No Stop Date Active Soma 350 mg tablet RxNorm: 332741 1 Tablet(s) PO TID as needed for spasm 01/13/2013 No Stop Date Active alprazolam 0.5 mg tablet RxNorm: 513651 1 Tablet(s) PO BID 12/31/19 13 01/26/2013 Inactive prn diclofenac sodium 75 mg tablet,delayed release RxNorm: 97150 8 1 Tablet(s) PO BID for pain 12/09/2012 01/07/2013 Inactive gabapentin 600 mg tablet RxNorm: 992103 1 Tablet(s) PO QHS 12/10/19 13 01/07/2013 Inactive hydrocodone 10 mg-acetaminophen 325 mg tablet RxNorm: 187290 2 1-2 Tablet(s) PO QID as needed for severe pain 12/02/2012 No Stop Date Active Levaquin 750 mg tablet RxNorm: 631619 1 Tablet(s) PO QD 11/21/2012 Inactive Singulair 10 mg tablet RxNorm: 423704 1 Tablet(s) PO QD 11/11/2012 Inactive clonidine 0.2 mg tablet RxNorm: 435053 1 Tablet(s) PO TID 11/11/2012 04/15/2013 Inactive alprazolam 0.5 mg tablet RxNorm: 517709 1 Tablet(s) PO BID 11/12/19 13 12/10/2012 Inactive prn Klor-Con 8 mEq tablet,extended release RxNorm: 508944 1 Tablet( s) PO BID 11/11/2012 03/04/2013 Inactive hydrocodone 10 mg-acetaminophen 325 mg tablet RxNorm: 859023 2 1-2 Tablet(s) PO QID as needed for severe pain 11/06/2012 No Stop Date Active alprazolam 0.5 mg tablet RxNorm: 783140 1 Tablet(s) PO BID 10/15/19 13 11/10/2012 Inactive prn hydrocodone-acetaminophen 10 mg-325 mg tablet RxNorm: 753659 2 1-2 Tablet(s) PO QID as needed for severe pain 10/10/2012 10/09/2012 Inactive allopurinol 300 mg tablet RxNorm: 609428 1 Tablet(s) PO QD 09/20/19 13 12/18/2012 Inactive alprazolam 0.5 mg tablet RxNorm: 519107 1 Tablet(s) PO BID 09/17/19 13 10/14/2012 Inactive prn hydrocodone-acetaminophen 10 mg-325 mg tablet RxNorm: 236411 2 1-2 Tablet(s) PO QID as needed for severe pain 08/22/2012 08/21/2012 Inactive Norvasc 10 mg tablet RxNorm: 799425 1 Tablet(s) PO QD 08/12/201201/10 Inactive Premarin 1.25 mg tablet RxNorm: 739222 1-2 Tablet(s) PO QD 07/30/20 12 12/26/2012 Inactive alprazolam 0.5 mg tablet RxNorm: 010194 1 Tablet(s) PO BID 07/29/20 12 08/27/2012 Inactive prn Klor-Con 8 mEq tablet,extended release RxNorm: 829304 1 Tablet( s) PO BID 07/29/2012 11/10/2012 Inactive hydrocodone-acetaminophen 10 mg-325 mg tablet RxNorm: 683839 2 1-2 Tablet(s) PO QID as needed for severe pain 07/29/2012 No Stop Date Active Premarin 1.25 mg tablet RxNorm: 905823 1-2 Tablet(s) PO QD 07/29/20 12 07/29/2012 Inactive clonidine 0.2 mg tablet RxNorm: 244761 1 Tablet(s) PO TID 07/29/2012 10/28/2012 Inactive ketorolac 10 mg tablet RxNorm: 863691 1 Tablet(s) PO QID prn he adache 07/18/2012 No Stop Date Active hydrocodone-acetaminophen 10 mg-325 mg tablet RxNorm: 642816 2 1-2 Tablet(s) PO QID as needed for severe pain 07/03/2012 No Stop Date Active amlodipine 5 mg tablet RxNorm: 290690 1 Tablet(s) PO QD 07/02/2012 Inactive allopurinol 300 mg tablet RxNorm: 790090 1 Tablet(s) PO QD 07/02/20 12 09/19/2012 Inactive Celebrex 200 mg capsule RxNorm: 019477 1 Capsule(s) PO QD for j oint pain 06/26/2012 10/23/2012 Inactive diclofenac sodium 75 mg tablet,delayed release RxNorm: 95582 8 1 Tablet(s) PO BID for pain 06/19/2012 09/16/2012 Inactive hydrocodone-acetaminophen 10 mg-325 mg tablet RxNorm: 353978 2 1-2 Tablet(s) PO QID as needed for severe pain 06/10/2012 No Stop Date Active alprazolam 0.5 mg tablet RxNorm: 500650 1 Tablet(s) PO BID 06/03/20 12 07/02/2012 Inactive prn ketorolac 10 mg tablet RxNorm: 304388 1 Tablet(s) PO Q8H 05/27/2012 0 01/21/2019 Inactive as needed for headache hydrocodone-acetaminophen 10 mg-325 mg tablet RxNorm: 605091 2 1-2 Tablet(s) PO QID as needed for severe pain 05/15/2012 No Stop Date Active allopurinol 300 mg tablet RxNorm: 190782 1 Tablet(s) PO QD 05/14/20 12 06/12/2012 Inactive allopurinol 300 mg tablet RxNorm: 383322 1 Tablet(s) PO QD 05/14/20 12 05/13/2012 Inactive amlodipine 5 mg tablet RxNorm: 397406 1 Tablet(s) PO QD 05/01/2012 Inactive amlodipine 5 mg Tab RxNorm: 750342 1 Tablet(s) PO QD 05/01/201204/30 Inactive Celebrex 200 mg capsule RxNorm: 478888 1 Capsule(s) PO QD for j oint pain 05/01/2012 06/25/2012 Inactive Singulair 10 mg tablet RxNorm: 898391 1 Tablet(s) PO QD 05/01/2012 Inactive alprazolam 0.5 mg tablet RxNorm: 345633 1 Tablet(s) PO BID 05/01/20 12 05/30/2012 Inactive prn Celebrex 200 mg Cap RxNorm: 791425 1 Capsule(s) PO QD for joint radu n 05/01/2012 04/30/2012 Inactive hydrocodone-acetaminophen 10 mg-325 mg tablet RxNorm: 428091 2 1-2 Tablet(s) PO QID as needed for severe pain 04/19/2012 No Stop Date Active Lasix 40 mg tablet RxNorm: 360332 1 Tablet(s) PO RAZA ramirez take potassium supplementation with this medication 04/05/2012 06/03/2012 Inactive alprazolam 0.5 mg Tab RxNorm: 347868 1 Tablet(s) PO BID 04/05/2012 Inactive prn hydrocodone-acetaminophen 10 mg-325 mg Tab RxNorm: 4669371 1-2 Tablet(s) PO QID as needed for severe pain 03/25/2012 03/24/2012 Inactive clonidine 0.2 mg Tab RxNorm: 911469 1 Tablet(s) PO TID 03/08/2012 Inactive alprazolam 0.5 mg Tab RxNorm: 409886 1 Tablet(s) PO BID 03/08/2012 Inactive prn Soma 350 mg tablet RxNorm: 887969 1 Tablet(s) PO TID for spasm 02/0903/18/2012 Inactive clonidine 0.2 mg tablet RxNorm: 411932 1 Tablet(s) PO TID 03/08/2012 07/28/2012 Inactive Celebrex 200 mg Cap RxNorm: 501240 1 Capsule(s) PO QD for joint radu n 03/01/2012 04/29/2012 Inactive amlodipine 5 mg Tab RxNorm: 517456 1 Tablet(s) PO QD 02/26/201202/24 Inactive amlodipine 5 mg Tab RxNorm: 827509 1 Tablet(s) PO QD 02/26/201204/25 Inactive Bactroban 2 % Ointment RxNorm: 114758 Application TOP QID to sores 02/23/2012 No Stop Date Active amlodipine 2.5 mg tablet RxNorm: 431584 1 Tablet(s) PO QHS 02/20/2002/25/2012 Inactive doxycycline hyclate 100 mg Cap RxNorm: 4900419 1 Capsule(s) PO BID 02/20/2012 02/29/2012 Inactive hydrocodone-acetaminophen 10 mg-325 mg Tab RxNorm: 8568846 1-2 T ablet(s) PO QID 02/08/2012 No Stop Date Active alprazolam 0.5 mg Tab RxNorm: 361944 1 Tablet(s) PO BID 02/08/2012 Inactive prn Singulair 10 mg Tab RxNorm: 342477 1 Tablet(s) PO QD 02/08/201204/30 Inactive Soma 350 mg Tab RxNorm: 441611 1 Tablet(s) PO TID for spasm 012 03/07/2012 Inactive Soma 350 mg Tab RxNorm: 188027 1 Tablet(s) PO TID for spasm 012 02/05/2012 Inactive diclofenac sodium 75 mg tablet,delayed release RxNorm: 96724 8 1 Tablet(s) PO BID for pain 02/01/2012 03/18/2012 Inactive Celebrex 200 mg Cap RxNorm: 397935 1 Capsule(s) PO QD for joint radu n 01/30/2012 02/28/2012 Inactive Lasix 40 mg Tab RxNorm: 575895 1 Tablet(s) PO QAM 01/24/2012 03/18/20 12 Inactive potassium chloride ER 20 mEq tablet,extended release(part/cr yst) RxNorm: 237068 2 Tablet(s) PO BID 01/24/2012 02/22/2012 Inactive alprazolam 0.5 mg Tab RxNorm: 137029 1 Tablet(s) PO BID 01/11/2012 Inactive prn hydrocodone-acetaminophen 10 mg-325 mg Tab RxNorm: 5317824 1-2 T ablet(s) PO QID 01/11/2012 No Stop Date Active Ambien 10 mg Tab RxNorm: 853232 1 Tablet(s) PO QHS 01/11/2012 012 Inactive Klor-Con 8 mEq Tab RxNorm: 061410 1 Tablet(s) PO BID 01/11/201201/22 Inactive diclofenac sodium 75 mg Tab, Delayed Release RxNorm: 384376 1 Tablet(s) PO BID for pain 01/10/2012 01/31/2012 Inactive Ambien 10 mg Tab RxNorm: 766994 1 Tablet(s) PO QHS 12/11/2011 012 Inactive alprazolam 0.5 mg Tab RxNorm: 203725 1 Tablet(s) PO BID 12/11/2011 Inactive prn hydrocodone 10 mg-acetaminophen 325 mg tablet RxNorm: 589682 1-2 Tablet(s) PO TID 11/28/2011 No Stop Date Active as needed for pa in - Previous quantity #240, will start dosing for #180 in April 2011 per Doctor Td. Ambien 10 mg Tab RxNorm: 448640 1 Tablet(s) PO QHS 11/09/2011 012 Inactive alprazolam 0.5 mg Tab RxNorm: 181136 1 Tablet(s) PO BID 11/09/2011 Inactive prn hydrocodone-acetaminophen 10 mg-325 mg Tab RxNorm: 5517520 1-2 T ablet(s) PO TID 11/06/2011 No Stop Date Active as needed for pain - Previous quantity #240, will start dosing for #180 in April 2011 per Doctor Td. Singulair 10 mg Tab RxNorm: 079719 1 Tablet(s) PO QD 10/13/201110/12 Inactive Singulair 10 mg Tab RxNorm: 467191 1 Tablet(s) PO QD 10/13/201102/06 Inactive hydrocodone-acetaminophen 10 mg-325 mg Tab RxNorm: 5409977 1-2 T ablet(s) PO TID 10/10/2011 10/09/2011 Inactive as needed for pain - Previous quantity #240, will start dosing for #180 in April 2011 per Doctor Td. hydrocodone-acetaminophen 10 mg-325 mg Tab RxNorm: 7667479 1-2 T ablet(s) PO TID 10/09/2011 No Stop Date Active as needed for pain - Previous quantity #240, will start dosing for #180 in April 2011 per Doctor Td. Klor-Con 8 mEq Tab RxNorm: 504517 1 Tablet(s) PO BID 10/02/201101/09 Inactive triamterene 75 mg-hydrochlorothiazide 50 mg tablet RxNorm: 3 04842 1 Tablet(s) PO QD 09/14/2011 03/06/2013 Inactive Ambien 10 mg Tab RxNorm: 170754 1 Tablet(s) PO QHS 09/14/2011 012 Inactive hydrocodone-acetaminophen 10 mg-325 mg Tab RxNorm: 0174546 1-2 T ablet(s) PO TID 09/14/2011 No Stop Date Active as needed for pain - Previous quantity #240, will start dosing for #180 in April 2011 per Doctor Td. alprazolam 0.5 mg Tab RxNorm: 131172 1 Tablet(s) PO BID 09/14/2011 Inactive prn Zithromax 500 mg Tab RxNorm: 344111 1 Tablet(s) PO QD 09/13/201109/10 Inactive prednisone 20 mg Tab RxNorm: 460735 1 Tablet(s) PO BID 08/31/2011 Inactive Ambien 10 mg Tab RxNorm: 474802 1 Tablet(s) PO QHS 08/17/2011 011 Inactive hydrocodone-acetaminophen 10 mg-325 mg Tab RxNorm: 1245293 1-2 T ablet(s) PO TID 08/17/2011 No Stop Date Active as needed for pain - Previous quantity #240, will start dosing for #180 in April 2011 per Doctor Td. clonidine 0.2 mg Tab RxNorm: 241086 1 Tablet(s) PO TID 08/17/201112/2011 Inactive Ambien 10 mg Tab RxNorm: 494456 1 Tablet(s) PO QHS 08/17/2011 019 Inactive alprazolam 0.5 mg Tab RxNorm: 758702 1 Tablet(s) PO BID 08/17/2011 Inactive prn hydrocodone-acetaminophen 10 mg-325 mg Tab RxNorm: 5183176 1-2 T ablet(s) PO TID 08/17/2011 08/16/2011 Inactive as needed for pain - Previous quantity #240, will start dosing for #180 in April 2011 per Doctor Td. Singulair 10 mg Tab RxNorm: 135384 1 Tablet(s) PO QD 08/17/201108/16 Inactive Klor-Con 8 mEq Tab RxNorm: 582138 1 Tablet(s) PO QD 08/17/20112011 Inactive alprazolam 0.5 mg Tab RxNorm: 592513 1 Tablet(s) PO BID 07/20/2011 Inactive prn Ambien 10 mg Tab RxNorm: 789140 1 Tablet(s) PO QHS 07/20/2011 012 Inactive Singulair 10 mg Tab RxNorm: 072594 1 Tablet(s) PO QD 07/20/201107/19 Inactive Premarin 1.25 mg tablet RxNorm: 592607 2 Tablet(s) PO QD 07/20/2011 0 01/21/2019 Inactive Premarin 1.25 mg tablet RxNorm: 560656 1-2 Tablet(s) PO QD 07/20/20 11 12/16/2011 Inactive Premarin 1.25 mg Tab RxNorm: 529637 1-2 Tablet(s) PO QD 07/06/2011 Inactive alprazolam 0.5 mg Tab RxNorm: 178921 1 Tablet(s) PO BID 06/22/2011 Inactive prn alprazolam 0.5 mg Tab RxNorm: 875021 1 Tablet(s) PO BID 06/22/2011 Inactive prn Premarin 1.25 mg Tab RxNorm: 653667 1 Tablet(s) PO QD m ay do 90 day fill if desired 06/22/2011 07/05/2011 Inactive hydrocodone-acetaminophen 10 mg-325 mg Tab RxNorm: 9158015 1-2 T ablet(s) PO TID 06/22/2011 No Stop Date Active as needed for pain - Previous quantity #240, will start dosing for #180 in April 2011 per Doctor Td. clonidine 0.2 mg Tab RxNorm: 730338 1 Tablet(s) PO TID 05/25/201103/2011 Inactive triamterene-hydrochlorothiazide 75 mg-50 mg Tab RxNorm: 3108 18 1 Tablet(s) PO QD 05/25/2011 09/13/2011 Inactive alprazolam 0.5 mg Tab RxNorm: 178419 1 Tablet(s) PO BID 05/25/2011 Inactive prn hydrocodone-acetaminophen 10 mg-325 mg Tab RxNorm: 3828420 1-2 T ablet(s) PO TID 05/25/2011 No Stop Date Active as needed for pain - Previous quantity #240, will start dosing for #180 in April 2011 per Doctor Td. Robaxin-750 750 mg Tab RxNorm: 684267 2 Tablet(s) PO QHS 05/22/2011 1 Inactive prn spasm hydrocodone-acetaminophen 10 mg-325 mg Tab RxNorm: 8028550 1-2 T ablet(s) PO TID 04/26/2011 No Stop Date Active as needed for pain - Previous quantity #240, will start dosing for #180 in April 2011 per Doctor Td. alprazolam 0.5 mg Tab RxNorm: 180919 1 Tablet(s) PO BID 04/25/2011 Inactive prn Klor-Con 8 mEq Tab RxNorm: 693853 1 Tablet(s) PO QD 03/30/20112010 Inactive Klor-Con 8 mEq Tab RxNorm: 720980 1 Tablet(s) PO QD 03/29/20112010 Inactive hydrocodone-acetaminophen 10 mg-325 mg Tab RxNorm: 0033998 1-2 T ablet(s) PO TID 03/20/2011 04/25/2011 Inactive as needed for pain - Previous quantity #240, will start dosing for #180 in April 2011 per Doctor Td. alprazolam 0.5 mg Tab RxNorm: 391588 1 Tablet(s) PO BID prn 011 03/30/2011 Inactive Ambien 10 mg Tab RxNorm: 691522 1 Tablet(s) PO QHS 03/01/2011 011 Inactive cyclobenzaprine 10 mg Tab RxNorm: 957986 1 Tablet(s) PO TID 011 03/18/2012 Inactive cyclobenzaprine 10 mg Tab RxNorm: 342992 1 Tablet(s) PO TID 011 01/08/2011 Inactive cyclobenzaprine 10 mg Tab RxNorm: 732927 1 Tablet(s) PO TID 011 12/20/2010 Inactive terbinafine 250 mg Tab RxNorm: 985946 1 Tablet(s) PO QD 12/12/2010 Inactive triamterene-hydrochlorothiazide 75 mg-50 mg Tab RxNorm: 3108 18 1 Tablet(s) PO QD 12/07/2010 06/04/2011 Inactive Klor-Con 8 8 mEq Tab RxNorm: 253095 1 Tablet(s) PO QD 12/07/201001/08 Inactive Premarin 1.25 mg Tab RxNorm: 430772 2 Tablet(s) PO QD 12/07/201001/08 Inactive clonidine 0.2 mg Tab RxNorm: 362494 1 Tablet(s) PO TID 12/07/2010 Inactive hydrocodone-acetaminophen 7.5 mg-650 mg Tab RxNorm: 048601 1 Ta blet(s) PO Q4H 12/05/2010 01/21/2019 Inactive hydrocodone-acetaminophen 7.5 mg-650 mg Tab RxNorm: 580532 1 Ta blet(s) PO Q4H 10/26/2010 11/14/2010 Inactive hydrocodone-acetaminophen 7.5 mg-650 mg Tab RxNorm: 096028 1 Ta blet(s) PO Q4H 10/13/2010 10/25/2010 Inactive hydrocodone-acetaminophen 7.5 mg-650 mg Tab RxNorm: 828526 1 Ta blet(s) PO Q4H 09/15/2010 09/12/2010 Inactive alprazolam 0.5 mg Tab RxNorm: 244464 1 Tablet(s) PO BID prn 011 09/12/2010 Inactive terbinafine 250 mg Tab RxNorm: 073689 1 Tablet(s) PO QD 09/05/2010 Inactive hydrocodone-acetaminophen 7.5 mg-650 mg Tab RxNorm: 881230 1 Ta blet(s) PO Q4H 08/29/2010 09/17/2010 Inactive alprazolam 0.5 mg Tab RxNorm: 957508 1 Tablet(s) PO BID prn 010 09/27/2010 Inactive alprazolam 0.5 mg Tab RxNorm: 023990 1 Tablet(s) PO BID prn 010 09/06/2010 Inactive Klor-Con 8 mEq Tab RxNorm: 085763 1 Tablet(s) PO QD 08/08/20102010 Inactive hydrocodone-acetaminophen 7.5 mg-650 mg Tab RxNorm: 391339 1 Ta blet(s) PO Q4H 08/08/2010 08/27/2010 Inactive Ambien 10 mg Tab RxNorm: 532204 1 Tablet(s) PO QHS 08/08/2010 Inactive clonidine 0.2 mg Tab RxNorm: 749924 1 Tablet(s) PO TID 08/08/2010 Inactive Premarin 1.25 mg Tab RxNorm: 615066 2 Tablet(s) PO QD 08/08/201009/12 Inactive Ambien 10 mg Tab RxNorm: 748194 1 Tablet(s) PO QHS 07/18/2010 Inactive alprazolam 0.5 mg Tab RxNorm: 097672 1 Tablet(s) PO BID prn 08/07/2010 Inactive hydrocodone-acetaminophen 7.5 mg-650 mg Tab RxNorm: 516783 1 Ta blet(s) PO Q4H 07/12/2010 07/31/2010 Inactive clonidine 0.2 mg Tab RxNorm: 972996 1 Tablet(s) PO TID 06/20/2010 Inactive terbinafine 250 mg Tab RxNorm: 076624 1 Tablet(s) PO QD 05/24/2010 Inactive Clonidine 0.2 mg Tab RxNorm: 395190 1 Tablet(s) PO TID 05/24/201006/2010 Inactive Ambien 10 mg Tab RxNorm: 396900 1 Tablet(s) PO QHS 05/24/2010 010 Inactive alprazolam 0.5 mg Tab RxNorm: 864977 1 Tablet(s) PO BID 05/24/2010 Inactive Klor-Con 8 mEq Tab RxNorm: 755767 1 Tablet(s) PO QD 05/24/20102009 Inactive alprazolam 0.5 mg Tab RxNorm: 720054 2 Tablet(s) PO QD prn 05/24/20 10 07/17/2010 Inactive triamterene-hydrochlorothiazide 75 mg-50 mg Tab RxNorm: 3108 18 1 Tablet(s) PO QD 05/24/2010 11/19/2010 Inactive Ambien 10 mg Tab RxNorm: 120925 1 Tablet(s) PO QHS 05/23/2010 Inactive Alprazolam 0.5 mg Tab RxNorm: 469382 2 Tablet(s) PO QD prn 05/23/20 10 05/23/2010 Inactive Premarin 1.25 mg Tab RxNorm: 549261 2 Tablet(s) PO QD 05/19/201007/12 Inactive Hydrocodone-Acetaminophen 7.5 mg-650 mg Tab RxNorm: 195958 1 Ta blet(s) PO Q4H 05/19/2010 03/20/2011 Inactive Prednisone 20 mg Tab RxNorm: 647337 1 Tablet(s) PO BID 05/17/2010 Inactive Prednisone 20 mg Tab RxNorm: 355210 1 Tablet(s) PO BID 05/06/201001/2010 Inactive Premarin 1.25 mg Tab RxNorm: 766818 Tablet(s) PO 2 M-W-F, and 1 Ab-Tk-Ejg-Sun 05/05/2010 08/02/2010 Inactive Premarin 1.25 mg Tab RxNorm: 358375 Tablet(s) PO 2 M-W-F, and 1 Mg-Sl-LxmSun 05/04/2010 05/04/2010 Inactive Premarin 1.25 mg Tab RxNorm: 362857 Tablet(s) PO 2 M-W-F, and 1 Hw-Ku-GcnSun 05/04/2010 05/03/2010 Inactive Prednisone 20 mg Tab RxNorm: 218719 1 Tablet(s) PO BID 04/27/2010 Inactive Alprazolam 0.5 mg Tab RxNorm: 603507 2 Tablet(s) PO QD prn 04/26/20 10 05/22/2010 Inactive Clindamycin 300 mg Cap RxNorm: 119699 2 Capsule(s) PO TID 04/05/2010 04/18/2010 Inactive Terbinafine 250 mg Tab RxNorm: 396074 1 Tablet(s) PO QD 04/04/2010 Inactive Hydrocodone-Acetaminophen 7.5 mg-650 mg Tab RxNorm: 888127 1 Ta blet(s) PO Q4H 03/30/2010 04/18/2010 Inactive Avelox 400 mg Tab RxNorm: 884286 1 Tablet(s) PO QD 03/09/2010 Inactive Hydrocodone-Acetaminophen 7.5 mg-650 mg Tab RxNorm: 621180 1 Ta blet(s) PO Q4H 03/08/2010 03/27/2010 Inactive Alprazolam 0.5 mg Tab RxNorm: 498422 2 Tablet(s) PO QD prn 03/08/20 10 04/25/2010 Inactive Klor-Con 8 mEq Tab RxNorm: 275554 1 Tablet(s) PO QD when takes lasi x 03/07/2010 09/29/2019 Inactive Premarin 1.25 mg Tab RxNorm: 923898 1 Tablet(s) PO QD 03/03/201003/11 Inactive Alprazolam 0.5 mg Tab RxNorm: 246994 1 Tablet(s) PO BID PRN 010 No Stop Date Active triamterene-hydrochlorothiazide 75 mg-50 mg Tab RxNorm: 3108 18 1 Tablet(s) PO QD 02/09/2010 02/03/2011 Inactive Hydrocodone-Acetaminophen 10 mg-750 mg Tab RxNorm: 150697 1 Tablet(s) PO Q4H PRN 02/09/2010 03/20/2011 Inactive Clonidine 0.2 mg Tab RxNorm: 621172 1 Tablet(s) PO TID 01/13/201009/2009 Inactive Alprazolam 0.5 mg Tab RxNorm: 960284 1 Tablet(s) PO BID PRN 010 01/12/2010 Inactive Hydrocodone-Acetaminophen 10 mg-750 mg Tab RxNorm: 311011 1 Tablet(s) PO Q4H PRN 01/13/2010 01/12/2010 Inactive ANGELIQ 1 mg-0.5 mg Tab RxNorm: 9309738 1 Tablet(s) PO QD 12/27/2009 01/23/2010 Inactive Lasix 40 mg Tab RxNorm: 131445 1 Tablet(s) PO QAM 12/14/2009 06/11/20 10 Inactive Vitamin B12 1000mcg Tablet RxNorm: 1 Tablet(s) PO QD No Start Date Active cyclobenzaprine 10 mg tablet RxNorm: 546211 1 Tablet(s) PO TID as needed DO NOT USE WITH BACLOFEN No Start Date Active Vitamin D 5,000 unit Tab RxNorm: 1 Tablet(s) PO QD No Start Date Active vitamin E (dl, acetate) 400 unit Cap RxNorm: 070685 1 Capsule(s ) PO QD No Start Date Active Benadryl 25 mg Cap RxNorm: 3064898 Capsule(s) PO PRN No Start Date Inactive amitriptyline 100 mg tablet RxNorm: 639015 1 Tablet(s) PO QHS No St art Date 11/27/2016 Inactive Zithromax Z-Dustin 250 mg tablet RxNorm: 679553 Tablet(s) PO as di rected No Start Date 07/22/2013 Inactive Klor-Con 8 mEq tablet,extended release RxNorm: 339602 1 Tablet( s) PO BID No Start Date 07/28/2012 Inactive scopolamine 1.5 mg 72 hr Transderm Patch RxNorm: 121420 Application TD Q72H for motion sickness No Start Date 05/25/2013 Inactive Klonopin 1 mg tablet RxNorm: 375060 1-2 Tablet(s) PO QHS as nee ded for sleep No Start Date 06/20/2015 Inactive Klor-Con M20 mEq tablet,extended release RxNorm: 111392 2 Tablet(s) PO BID to use with lasix No Start Date 11/11/2013 Inactive Bystolic 5 mg tablet RxNorm: 752318 1 Tablet(s) PO QD No Start Date 1 Inactive Bystolic 10 mg tablet RxNorm: 696573 1 Tablet(s) PO BID No Start Da te 07/06/2015 Inactive Premarin 1.25 mg Tab RxNorm: 619842 Tablet(s) PO 2 --, and 1 [id number]-[id number] No Start Date 05/03/2010 Inactive baclofen 20 mg tablet RxNorm: 538490 1 Tablet(s) PO TID as needed for muscle spasm No Start Date 07/22/2015 Inactive hydrocodone-acetaminophen 7.5 mg-650 mg Tab RxNorm: 284169 1 Tablet(s) PO Q4H as needed for pain No Start Date 03/20/2011 Inactive albuterol sulfate 1.25 mg/3 mL Neb Solution RxNorm: 547698 1 Unit Dose INH Q4H 2boxes No Start Date 09/06/2015 Inactive Butrans 20 mcg/hour Transderm Patch RxNorm: 766406 1 TD WEEKLY apply to skin weekly after removing previous. No Start Date 07/22/2013 Inactive Medrol (Dustin) 4 mg tablets in a dose pack RxNorm: 282998 Tablet(s) PO As Directed No Start Date 07/30/2016 Inactive hydrocodone-acetaminophen 10 mg-325 mg Tab RxNorm: 8107791 1-2 Tablet(s) PO TID as needed for pain No Start Date 03/19/2011 Inactive Klonopin 1 mg tablet RxNorm: 557560 1 Tablet(s) PO QHS No Start Date 02/28/2016 Inactive honey topical RxNorm: topical No Start Date 06/16/2018 Inactive Clonidine 0.2 mg Tab RxNorm: 496199 1 Tablet(s) PO TID No Start Date 01/12/2010 Inactive ketorolac 10 mg tablet RxNorm: 309812 1 Tablet(s) PO Q8H No Start D ate 03/18/2012 Inactive as needed for headache Singulair 10 mg Tab RxNorm: 068367 1 Tablet(s) PO QD No Start Date Inactive Premarin 1.25 mg Tab RxNorm: 968024 1 Tablet(s) PO QD No Start Date 1 Inactive Flonase 50 mcg/Actuation Nasal [place] RxNorm: 5792616 1 [place] CECELIA AL BID No Start Date 03/18/2012 Inactive Terbinafine 250 mg Tab RxNorm: 540546 1 Tablet(s) PO QD No Start Da te 04/03/2010 Inactive Fexofenadine 180 mg Tab RxNorm: 8365525 1 Tablet(s) PO QD No Start Date 09/06/2015 Inactive baclofen 20 mg tablet RxNorm: 834808 1 Tablet(s) PO TID as needed N o Start Date 05/25/2014 Inactive Diovan 160 mg Tab RxNorm: 414955 1 Tablet(s) PO QD No Start Date 09/12 Inactive mupirocin 2 % topical ointment RxNorm: 072260 1 Application TOP QID No Start Date 04/25/2016 Inactive ZOFRAN ODT 4 mg Tab, Rapid Dissolve RxNorm: 018859 1 Tablet(s) PO Q4H No Start Date 03/18/2012 Inactive as needed for nausea and vomiting Alprazolam 0.5 mg Tab RxNorm: 766807 1 Tablet(s) PO BID PRN No Star t Date 01/12/2010 Inactive cyclobenzaprine 10 mg tablet RxNorm: 367526 1 Tablet(s) PO TID as needed for muscle spasm No Start Date 10/08/2017 Inactive Albuterol 0.083% Aerosol Solution RxNorm: 1 Appl ication INH Q4H Use one ampule every 4 hrs with nebulizer as needed for shortness of breath. No Start Date 10/09/2010 Inactive lorazepam 1 mg tablet RxNorm: 630995 1 1/2 Tablet(s) PO QHS No Star t Date 02/02/2016 Inactive Melatonin 3 mg Tab RxNorm: 067219 Tablet(s) PO PRN No Start Date 07/11 Inactive Medrol (Dustin) 4 mg Tabs in a Dose Pack RxNorm: 943239 Tablet(s) PO N o Start Date 11/28/2010 Inactive lorazepam 1 mg tablet RxNorm: 266100 1 Tablet(s) PO QHS as need ed for sleep No Start Date 01/30/2016 Inactive hydrocodone-acetaminophen 10 mg-325 mg Tab RxNorm: 4620385 1-2 Tablet(s) PO QID as needed for severe pain No Start Date 03/24/2012 Inactive celecoxib 200 mg capsule RxNorm: 802145 1 Capsule(s) PO BID No Star t Date 06/26/2019 Inactive amlodipine 5 mg-benazepril 20 mg capsule RxNorm: 536951 1 Capsu le(s) PO QD No Start Date 04/10/2017 Inactive Bystolic 20 mg tablet RxNorm: 275921 1/2 Tablet(s) PO QAM No Start Date 01/23/2016 Inactive Bystolic 20 mg tablet RxNorm: 324468 1 Tablet(s) PO QAM No Start Da te 04/25/2016 Inactive Ambien 10 mg Tab RxNorm: 312054 1 Tablet(s) PO QHS No Start Date 05/11 Inactive Klor-Con 8 mEq Tab RxNorm: 623734 1 Tablet(s) PO QD when takes lasix No Start Date 03/06/2010 Inactive aspirin 81 mg tablet RxNorm: 642218 1 Tablet(s) PO QD No Start Date 0 01/29/2018 Inactive hydrocodone-acetaminophen 10 mg-325 mg Tab RxNorm: 9338243 1-2 T ablet(s) PO QID No Start Date 01/10/2012 Inactive Bystolic 10 mg tablet RxNorm: 298665 1 Tablet(s) PO QAM take one daily in the morning. No Start Date 05/28/2013 Inactive nystatin 100,000 unit/mL Oral Susp RxNorm: 800456 5 Milliliter( s) PO QID No Start Date 03/18/2012 Inactive swish and spit scopolamine 1.5 mg 72 hr Transderm Patch RxNorm: 160767 1 Unit Dose TD Q72H for motion sickness No Start Date 12/23/2013 Inactive Hydrocodone-Acetaminophen 10 mg-750 mg Tab RxNorm: 556762 1 Tablet(s) PO Q4H PRN No Start Date 01/12/2010 Inactive Soma 350 mg tablet RxNorm: 621004 1 Tablet(s) PO TID as needed for spasm No Start Date 01/12/2013 Inactive baclofen 10 mg tablet RxNorm: 363324 1 Tablet(s) PO TID as needed for muscle spasm No Start Date 09/18/2019 Inactive Soma 350 mg Tab RxNorm: 958608 1 Tablet(s) PO TID for spasm No Star t Date 01/31/2012 Inactive Co Q-10 400 mg capsule RxNorm: 083488 1 Capsule(s) PO QD No Start D ate 01/21/2019 Inactive nystatin 100,000 unit/gram topical cream RxNorm: 696081 Applica tion TOP BID No Start Date 03/22/2015 Inactive Exforge 5 mg-160 mg Tab RxNorm: 739263 1 Tablet(s) PO QD No Start D ate 10/09/2010 Inactive Hydrocodone-Acetaminophen 7.5 mg-650 mg Tab RxNorm: 050527 1 Ta blet(s) PO Q4H No Start Date 03/07/2010 Inactive Robaxin-750 750 mg Tab RxNorm: 198708 1-2 Tablet(s) PO TID prn spasm No Start Date 05/21/2011 Inactive amlodipine 5 mg tablet RxNorm: 990141 1 Tablet(s) PO QHS No Start D ate 09/29/2015 Inactive oxycodone-acetaminophen 10 mg-325 mg tablet RxNorm: 9668340 1-2 Tablet(s) PO Q6H No Start Date 06/16/2018 Inactive Triamterene-Hydrochlorothiazide 75 mg-50 mg Tab RxNorm: 3108 18 1 Tablet(s) PO QD No Start Date 02/08/2010 Inactive Alprazolam 0.5 mg Tab RxNorm: 178715 2 Tablet(s) PO QD prn No Start Date 03/07/2010 Inactive Bystolic 20 mg tablet RxNorm: 449613 1 Tablet(s) PO QAM No Start Da te 08/17/2015 Inactive ketorolac 10 mg tablet RxNorm: 304262 1 Tablet(s) PO QID prn he adache No Start Date 07/17/2012 Inactive acyclovir 800 mg Tab RxNorm: 447094 1 Tablet(s) PO BID No Start Date 03/18/2012 Inactive duloxetine 60 mg capsule,delayed release RxNorm: 328030 1 Capsu le(s) PO QD No Start Date 09/29/2015 Inactive Norvasc 5 mg tablet RxNorm: 156277 1 Tablet(s) PO QHS No Start Date 1 10/18/2014 Inactive promethazine 25 mg tablet RxNorm: 876904 1 Tablet(s) PO Q8H use sparingly No Start Date 07/22/2013 Inactive alprazolam 0.5 mg tablet RxNorm: 109570 3 Tablet(s) PO QHS No Start Date 06/06/2015 Inactive Lunesta 3 mg tablet RxNorm: 494652 1 Tablet(s) PO QHS No Start Date 0 09/20/2017 Inactive hydrocodone-acetaminophen 10 mg-325 mg Tab RxNorm: 1175329 1-2 Tablet(s) PO TID as needed for pain No Start Date 12/10/2011 Inactive Coricidin HBP Cough & Cold 4 mg-30 mg Tab RxNorm: 5334420 Tablet (s) PO PRN No Start Date 10/09/2010 Inactive Bactroban 2 % Ointment RxNorm: 531034 Application TOP QID to so res No Start Date 02/22/2012 Inactive Flonase 50 mcg/actuation Nasal [place] RxNorm: 833720 2 [place] AL QHS No Start Date 03/03/2014 Inactive Medication Administered No Medication Administered data Immunizations Vaccine Codes Date Status Tetanus, Diptheria, Pertussis CVX: 115 02/27/2014 Results Observation Observation Code Item Item Code Result Date [facility] COMPREHENSIVE METABOLIC 10307 AST 15 U/L 2019 Unknown COMPREHENSIVE METABOLIC 63684 ALT 13 U/L 2019 Unknown COMPREHENSIVE METABOLIC 78112 BUN 12 mg/dL 2019 Unknown COMPREHENSIVE METABOLIC 14669 ALBUMIN 3.9 g/dL 2019 Unknown COMPREHENSIVE METABOLIC 34622 CHLORIDE 97 mmol/L 2019 Unknown COMPREHENSIVE METABOLIC 22634 Bili Total 0.4 mg/dL 09/29 Unknown COMPREHENSIVE METABOLIC 80154 ALK PHOS 130 U/L 2019 Unknown COMPREHENSIVE METABOLIC 96474 SODIUM 136 mmol/L 09/29 Unknown COMPREHENSIVE METABOLIC 01116 CREATININE 0.92 mg/dL 09/11 Unknown COMPREHENSIVE METABOLIC 87679 CALCIUM 9.1 mg/dL 2019 Unknown COMPREHENSIVE METABOLIC 24390 POTASSIUM 4.4 mmol/L 09/29 Unknown COMPREHENSIVE METABOLIC 76389 Total Protein 6.2 g/dL Unknown COMPREHENSIVE METABOLIC 03158 Glucose 391 mg/dL 2019 Unknown COMPREHENSIVE METABOLIC 57448 Bicarbonate 30 mmol/L 09/11 Unknown COMPREHENSIVE METABOLIC 18634 AGAP 9 mmol/L 2019 Unknown MEAN GLUC 9341593 Calc Mean Gluc 332 mg/dL 09/29/2019 Unkn own COMPLETE BLOOD COUNT [id number] WBC 7.0 10e9/L 09/29/19 Unknown COMPLETE BLOOD COUNT [id number] RBC 4.69 10e12/L 2019 Unknown COMPLETE BLOOD COUNT [id number] HEMOGLOBIN 14.6 g/dL 09/29/19 Unknown COMPLETE BLOOD COUNT [id number] HEMATOCRIT 45.2 % 09/29/19 Unknown COMPLETE BLOOD COUNT [id number] MCV 96.4 fL 0 Unknown COMPLETE BLOOD COUNT [id number] MCH 31.1 pg 0 Unknown COMPLETE BLOOD COUNT [id number] MCHC 32.3 g/dL 0 Unknown COMPLETE BLOOD COUNT 8684038 PLATELET COUNT 209 10e9/L Unknown COMPLETE BLOOD COUNT [id number] Mean Plt Volume 9.8 fL Unknown COMPLETE BLOOD COUNT [id number] Neut Auto 48.1 % 0 Unknown COMPLETE BLOOD COUNT [id number] Lymph Auto 36.5 % 09/29/19 20 Unknown COMPLETE BLOOD COUNT [id number] [place] Auto 8.6 % 0 Unknown COMPLETE BLOOD COUNT [id number] RDW 13.4 % 0 Unknown COMPLETE BLOOD COUNT [id number] Eos Auto 6.5 % 0 Unknown COMPLETE BLOOD COUNT [id number] Baso Auto 0.3 % 0 Unknown COMPLETE BLOOD COUNT [id number] Neutrophil Abs 3.37 10e9/L Unknown COMPLETE BLOOD COUNT 7443534 Lymphocyte Abs 2.56 10e9/L Unknown COMPLETE BLOOD COUNT [id number] Monocyte Abs 0.60 10e9/L 09/11 Unknown COMPLETE BLOOD COUNT [id number] Eosinophil Abs 0.46 10e9/L Unknown COMPLETE BLOOD COUNT [id number] RDW-SD 45.9 fL 0 Unknown COMPLETE BLOOD COUNT [id number] Basophil Abs 0.02 10e9/L 09/11 Unknown LIPID GROUP 58432 Cholesterol 248 mg/dL 09/29/2019 Unkno wn LIPID GROUP 40767 Triglyceride 898 mg/dL 09/29/2019 Unkn own LIP[facility] GROUP 96586 HDL CHOLESTEROL 41 mg/dL 09/29/2019 U nknown L[facility] GROUP 14647 Chol/HDL Ratio 6.05 ratio 09/29/2019 U nknown LIP[facility] GROUP 08780 NON-HDL Chol 207 mg/dL 09/29/2019 Unkn own LIPID GROUP 37439 LDL Cholesterol N/A Trig >400 020 Unknown GLYCOSYLATED HEMOGLOBIN TEST 49185 Hgb A1c 26435-0 13.2 % 0 09/29/2019 Unknown FREE T4 70865 T4 Free 0.75 ng/dL 09/29/2019 Unknown GFR CALC 8347960 GFR Non Afr Amr >60 mL/min 09/29/2019 Un known GFR CALC 8105538 GFR Afr Amr >60 mL/min 09/29/2019 Unknow n THYROID STIMULATING HORMONE 70788 TSH 4.245 uIU/mL 09/29/2019 Unknown COMPLETE BLOOD COUNT [id number] WBC 10.7 10e9/L 018 Unknown COMPLETE BLOOD COUNT [id number] RBC 4.59 10e12/L 2017 Unknown COMPLETE BLOOD COUNT [id number] HEMOGLOBIN 14.8 g/dL 12/11/19 18 Unknown COMPLETE BLOOD COUNT 9084515 HEMATOCRIT 44.9 % 12/11/19 18 Unknown COMPLETE BLOOD COUNT 3207298 MCV 97.8 fL 8 Unknown COMPLETE BLOOD COUNT 5480594 MCH 32.2 pg 8 Unknown COMPLETE BLOOD COUNT 3555100 MCHC 33.0 g/dL 8 Unknown COMPLETE BLOOD COUNT [id number] PLATELET COUNT 261 10e9/L 10/2017 Unknown COMPLETE BLOOD COUNT 4607381 Mean Plt Volume 9.5 fL 10/2017 Unknown COMPLETE BLOOD COUNT 3501451 Neut Auto 59.9 % 8 Unknown COMPLETE BLOOD COUNT [id number] Lymph Auto 27.4 % 12/11/19 18 Unknown COMPLETE BLOOD COUNT 9240546 [place] Auto 8.2 % 8 Unknown COMPLETE BLOOD COUNT 5033859 RDW 13.3 % 8 Unknown COMPLETE BLOOD COUNT 5429105 Eos Auto 4.1 % 8 Unknown COMPLETE BLOOD COUNT 1182248 Baso Auto 0.4 % 8 Unknown COMPLETE BLOOD COUNT 0686882 Neutrophil Abs 6.41 10e9/L Unknown COMPLETE BLOOD COUNT 4070689 Lymphocyte Abs 2.93 10e9/L Unknown COMPLETE BLOOD COUNT [id number] Monocyte Abs 0.88 10e9/L 10/2017 Unknown COMPLETE BLOOD COUNT [id number] Eosinophil Abs 0.44 10e9/L Unknown COMPLETE BLOOD COUNT 5237819 RDW-SD 46.2 fL 8 Unknown COMPLETE BLOOD COUNT [id number] Basophil Abs 0.04 10e9/L 10/2017 Unknown THYROID STIMULATING HORMONE 07351 TSH 4.015 uIU/mL 12/10/2017 Unknown COMPREHENSIVE METABOLIC 95294 AST 25 U/L 2017 Unknown COMPREHENSIVE METABOLIC 11504 ALT 17 U/L 2017 Unknown COMPREHENSIVE METABOLIC 79449 BUN 19 mg/dL 2017 Unknown COMPREHENSIVE METABOLIC 79376 ALBUMIN 4.0 g/dL 2017 Unknown COMPREHENSIVE METABOLIC 37814 CHLORIDE 91 mmol/L 2017 Unknown COMPREHENSIVE METABOLIC 05907 Bili Total 0.5 mg/dL 12/10 Unknown COMPREHENSIVE METABOLIC 12437 ALK PHOS 75 U/L 2017 Unknown COMPREHENSIVE METABOLIC 61237 SODIUM 136 mmol/L 12/10 Unknown COMPREHENSIVE METABOLIC 92749 CREATININE 1.05 mg/dL 10/2017 Unknown COMPREHENSIVE METABOLIC 67631 CALCIUM 8.9 mg/dL 2017 Unknown COMPREHENSIVE METABOLIC 61423 POTASSIUM 3.4 mmol/L 12/10 Unknown COMPREHENSIVE METABOLIC 86908 Total Protein 6.5 g/dL Unknown COMPREHENSIVE METABOLIC 18064 Glucose 138 mg/dL 2017 Unknown COMPREHENSIVE METABOLIC 66921 Bicarbonate 35 mmol/L 10/2017 Unknown COMPREHENSIVE METABOLIC 56887 AGAP 10 mmol/L 2017 Unknown MEAN GLUC 3274824 Calc Mean Gluc 171 mg/dL 12/10/2017 Unkn own LIPID GROUP 36861 Cholesterol 204 mg/dL 12/10/2017 Unkno wn LIP[facility] GROUP 28281 Triglyceride 411 mg/dL 12/10/2017 Unkn own L[facility] GROUP 81299 HDL CHOLESTEROL 50 mg/dL 12/10/2017 U nknown L[facility] GROUP 23424 Chol/HDL Ratio 4.08 ratio 12/10/2017 U nknown L[facility] 34134 NON-HDL Chol 154 mg/dL 12/10/2017 Unkn own LIPID GROUP 00466 LDL Cholesterol N/A Trig >400 018 Unknown GLYCOSYLATED HEMOGLOBIN TEST 37946 Hgb A1c 19952-4 7.6 % 0 12/10/2017 Unknown FREE T4 24983 T4 Free 1.40 ng/dL 12/10/2017 Unknown GFR CALC 9210861 GFR Non Afr Amr 55 mL/min 12/10/2017 Unk nown GFR CALC 8760319 GFR Afr Amr >60 mL/min 12/10/2017 Unknow n GFR CALC 8727701 GFR Non Afr Amr 48 mL/min 06/28/2017 Unk nown GFR CALC 4353738 GFR Afr Amr 59 mL/min 06/28/2017 Unknown COMPREHENSIVE METABOLIC 06915 AST 32 U/L 2016 Unknown COMPREHENSIVE METABOLIC 49811 ALT 22 U/L 2016 Unknown COMPREHENSIVE METABOLIC 14375 BUN 23 mg/dL 2016 Unknown COMPREHENSIVE METABOLIC 01385 ALBUMIN 4.7 g/dL 2016 Unknown COMPREHENSIVE METABOLIC 62152 CHLORIDE 89 mmol/L 2016 Unknown COMPREHENSIVE METABOLIC 42443 Bili Total 0.5 mg/dL 06/28 Unknown COMPREHENSIVE METABOLIC 01298 ALK PHOS 90 U/L 2016 Unknown COMPREHENSIVE METABOLIC 87081 SODIUM 135 mmol/L 06/28 Unknown COMPREHENSIVE METABOLIC 27184 CREATININE 1.18 mg/dL 06/10 Unknown COMPREHENSIVE METABOLIC 71736 CALCIUM 9.7 mg/dL 2016 Unknown COMPREHENSIVE METABOLIC 06151 POTASSIUM 3.5 mmol/L 06/28 Unknown COMPREHENSIVE METABOLIC 96087 Total Protein 7.7 g/dL Unknown COMPREHENSIVE METABOLIC 75853 Glucose 129 mg/dL 2016 Unknown COMPREHENSIVE METABOLIC 52152 Bicarbonate 34 mmol/L 06/10 Unknown COMPREHENSIVE METABOLIC 94015 AGAP 12 mmol/L 2016 Unknown LIP[facility] GROUP 57259 HDL TEST 64 MG/DL 08/27/2014 Unknown LIP[facility] GROUP 17749 TRIG 222 MG/DL 08/27/2014 Unknown LIPID GROUP 60801 TEST LDL 209 MG/DL 08/27/2014 Unknown LIP[facility] GROUP 07136 CHOL 317 MG/DL 08/27/2014 Unknown LIPID GROUP 31424 RCHOL/HDL 4.95 RATIO 08/27/2014 Unknow n LIPID GROUP 99016 NON-HDL CH 253 MG/DL 08/27/2014 Unknow n GFR CALC 9478601 GFR AA >60 ML/MIN 08/27/2014 Unknown GFR CALC 8450873 GFR NON-AA >60 ML/MIN 08/27/2014 Unknown COMPLETE BLOOD COUNT 1424475 WBC 7.0 10e9/L 08/27/20 14 Unknown COMPLETE BLOOD COUNT 9884665 RBC 4.98 10e12/L 2013 Unknown COMPLETE BLOOD COUNT 2134982 HGB 15.6 g/dL 4 Unknown COMPLETE BLOOD COUNT 1345507 HCT DET 46.5 % 4 Unknown COMPLETE BLOOD COUNT 6471496 MCV 93.4 fL 4 Unknown COMPLETE BLOOD COUNT 7217761 MCH 31.3 pg 4 Unknown COMPLETE BLOOD COUNT 6508847 MCHC 33.5 g/dL 4 Unknown COMPLETE BLOOD COUNT 7316702 PLT 309 10e9/L 08/27/20 14 Unknown COMPLETE BLOOD COUNT 3414928 MPV 9.6 fL 4 Unknown COMPLETE BLOOD COUNT 7712366 CADEN % 57.2 % 4 Unknown COMPLETE BLOOD COUNT 6386613 LY % 33.2 % 4 Unknown COMPLETE BLOOD COUNT 5740833 MON % 7.3 % 4 Unknown COMPLETE BLOOD COUNT 1149628 EOS % 2.0 % 4 Unknown COMPLETE BLOOD COUNT 9383909 BASO % 0.3 % 4 Unknown COMPLETE BLOOD COUNT 3541783 RDW 13.7 % 4 Unknown COMPLETE BLOOD COUNT 4103524 ABS CADEN 4.00 10e9/L 014 Unknown COMPLETE BLOOD COUNT 5005647 ABS LYMPH 2.32 10e9/L 014 Unknown COMPLETE BLOOD COUNT 6872898 ABS MONO 0.51 10e9/L 014 Unknown COMPLETE BLOOD COUNT 0772519 ABS EOS 0.14 10e9/L 014 Unknown COMPLETE BLOOD COUNT [id number] ABS BASO 0.02 10e9/L 014 Unknown COMPLETE BLOOD COUNT 9284632 RDW-SD 45.1 fL 4 Unknown COMPREHENSIVE METABOLIC 63231 AST 13 U/L 2013 Unknown COMPREHENSIVE METABOLIC 57083 ALT 11 IU/L 2013 Unknown COMPREHENSIVE METABOLIC 01036 BUN 23 MG/DL 2013 Unknown COMPREHENSIVE METABOLIC 96585 ALBUMIN 4.4 GM/DL 2013 Unknown COMPREHENSIVE METABOLIC 24207 CHLORIDE 99 MMOL/L 2013 Unknown COMPREHENSIVE METABOLIC 38439 BILI TOT 0.5 MG/DL 2013 Unknown COMPREHENSIVE METABOLIC 78257 ALK PHOS 56 U/L 2013 Unknown COMPREHENSIVE METABOLIC 58607 SODIUM 138 MMOL/L 08/27 Unknown COMPREHENSIVE METABOLIC 62273 CREATININE 0.95 MG/DL 08/10 Unknown COMPREHENSIVE METABOLIC 26038 CALCIUM 9.8 MG/DL 2013 Unknown COMPREHENSIVE METABOLIC 63771 POTASSIUM 3.5 MMOL/L 08/27 Unknown COMPREHENSIVE METABOLIC 53173 PROT TOT 6.8 GM/DL 2013 Unknown COMPREHENSIVE METABOLIC 10487 Glucose 90 MG/DL 2013 Unknown COMPREHENSIVE METABOLIC 21349 BICARB 34 MMOL/L 2013 Unknown COMPREHENSIVE METABOLIC 46977 ANION GAP 5 MEQ/L 2013 Unknown LIPASE 79665 LIPASE 11 IU/L 07/21/2014 Unknown AMYLASE 15539 AMYLASE 39 IU/L 07/21/2014 Unknown HEMOGLOBIN A1C (GLYCOSYLATED) 8986625 A1C [facility] 36359-3 6.2 % 03/05/2013 Unknown THYROID STIMULATING HORMONE 77425 TSH 6.986 uIU/ML 03/05/2013 Unknown COMPLETE BLOOD COUNT 3852771 WBC 12.7 10e9/L 013 Unknown COMPLETE BLOOD COUNT 9954977 RBC 4.53 10e12/L 2012 Unknown COMPLETE BLOOD COUNT 5959385 HGB 14.7 g/dL 3 Unknown COMPLETE BLOOD COUNT 7357936 HCT DET 43.1 % 3 Unknown COMPLETE BLOOD COUNT 4228356 MCV 95.1 fL 3 Unknown COMPLETE BLOOD COUNT 5897336 MCH 32.5 pg 3 Unknown COMPLETE BLOOD COUNT 1504369 MCHC 34.1 g/dL 3 Unknown COMPLETE BLOOD COUNT 8316834 PLT 346 10e9/L 03/05/20 13 Unknown COMPLETE BLOOD COUNT 0194968 MPV 9.5 fL 3 Unknown COMPLETE BLOOD COUNT 8520955 CADEN % 67.6 % 3 Unknown COMPLETE BLOOD COUNT 7846741 LY % 22.1 % 3 Unknown COMPLETE BLOOD COUNT 6823204 MON % 6.6 % 3 Unknown COMPLETE BLOOD COUNT 4754610 EOS % 3.3 % 3 Unknown COMPLETE BLOOD COUNT 7210900 BASO % 0.4 % 3 Unknown COMPLETE BLOOD COUNT 5607636 RDW 14.0 % 3 Unknown COMPLETE BLOOD COUNT [id number] ABS CADEN 8.59 10e9/L 013 Unknown COMPLETE BLOOD COUNT 3168184 ABS LYMPH 2.81 10e9/L 013 Unknown COMPLETE BLOOD COUNT 4165188 ABS MONO 0.84 10e9/L 013 Unknown COMPLETE BLOOD COUNT 7226776 ABS EOS 0.42 10e9/L 013 Unknown COMPLETE BLOOD COUNT [id number] ABS BASO 0.05 10e9/L 013 Unknown COMPLETE BLOOD COUNT 4402760 RDW-SD 46.0 fL 201 3 Unknown FREE T4 59858 FREE T4 1.14 NG/DL 03/05/2013 Unknown COMPREHENSIVE METABOLIC 59161 AST 17 U/L 2012 Unknown COMPREHENSIVE METABOLIC 07093 ALT 12 IU/L 2012 Unknown COMPREHENSIVE METABOLIC 85147 BUN 24 MG/DL 2012 Unknown COMPREHENSIVE METABOLIC 64737 ALBUMIN 4.2 GM/DL 2012 Unknown COMPREHENSIVE METABOLIC 44623 CHLORIDE 93 MMOL/L 2012 Unknown COMPREHENSIVE METABOLIC 66322 BILI TOT 0.5 MG/DL 2012 Unknown COMPREHENSIVE METABOLIC 18267 ALK PHOS 75 U/L 2012 Unknown COMPREHENSIVE METABOLIC 39270 SODIUM 141 MMOL/L 03/05 Unknown COMPREHENSIVE METABOLIC 52635 CREATININE 1.36 MG/DL 02/09 Unknown COMPREHENSIVE METABOLIC 78160 CALCIUM 9.2 MG/DL 2012 Unknown COMPREHENSIVE METABOLIC 84866 POTASSIUM 3.1 MMOL/L 03/05 Unknown COMPREHENSIVE METABOLIC 13294 PROT TOT 6.9 GM/DL 2012 Unknown COMPREHENSIVE METABOLIC 43837 Glucose 123 MG/DL 2012 Unknown COMPREHENSIVE METABOLIC 94106 BICARB 36 MMOL/L 2012 Unknown COMPREHENSIVE METABOLIC 29725 ANION GAP 12 MEQ/L 2012 Unknown GFR CALC 5782034 GFR AA 51.0L ML/MIN 03/05/2013 Unknow n GFR CALC 7294538 GFR NON-AA 42.0L ML/MIN 03/05/2013 Unkno wn COMPREHENSIVE METABOLIC 11176 AST 14 U/L 2012 Unknown COMPREHENSIVE METABOLIC 47270 ALT 11 IU/L 2012 Unknown COMPREHENSIVE METABOLIC 01894 BUN 16 MG/DL 2012 Unknown COMPREHENSIVE METABOLIC 03107 ALBUMIN 4.2 GM/DL 2012 Unknown COMPREHENSIVE METABOLIC 74862 CHLORIDE 98 MMOL/L 2012 Unknown COMPREHENSIVE METABOLIC 51493 BILI TOT 0.4 MG/DL 2012 Unknown COMPREHENSIVE METABOLIC 61253 ALK PHOS 77 U/L 2012 Unknown COMPREHENSIVE METABOLIC 52946 SODIUM 139 MMOL/L 09/25 Unknown COMPREHENSIVE METABOLIC 86321 CREATININE 0.86 MG/DL 09/10 Unknown COMPREHENSIVE METABOLIC 30144 CALCIUM 9.5 MG/DL 2012 Unknown COMPREHENSIVE METABOLIC 92497 POTASSIUM 3.8 MMOL/L 09/25 Unknown COMPREHENSIVE METABOLIC 43953 PROT TOT 6.8 GM/DL 2012 Unknown COMPREHENSIVE METABOLIC 36452 Glucose 91 MG/DL 2012 Unknown COMPREHENSIVE METABOLIC 31734 BICARB 32 MMOL/L 2012 Unknown COMPREHENSIVE METABOLIC 33697 ANION GAP 9 MEQ/L 2012 Unknown FREE T4 85677 FREE T4 0.98 NG/DL 09/25/2012 Unknown THYROID STIMULATING HORMONE 55007 TSH 1.736 uIU/ML 09/25/2012 Unknown C-REACTIVE PROTEIN (CRP) QUANT 78996 CRP 2.3 MG/DL 09/25/2012 Unknown COMPLETE BLOOD COUNT [id number] WBC 11.9 10e9/L 013 Unknown COMPLETE BLOOD COUNT [id number] RBC 4.87 10e12/L 2012 Unknown COMPLETE BLOOD COUNT 4642971 HGB 15.1 g/dL 3 Unknown COMPLETE BLOOD COUNT 6967230 HCT DET 44.8 % 3 Unknown COMPLETE BLOOD COUNT 8546935 MCV 92.0 fL 3 Unknown COMPLETE BLOOD COUNT 4500143 MCH 31.0 pg 3 Unknown COMPLETE BLOOD COUNT 3825576 MCHC 33.7 g/dL 3 Unknown COMPLETE BLOOD COUNT 8470388 PLT 343 10e9/L 09/25/19 13 Unknown COMPLETE BLOOD COUNT 8716874 MPV 9.0 fL 3 Unknown COMPLETE BLOOD COUNT 2359727 CADEN % 68.2 % 3 Unknown COMPLETE BLOOD COUNT 4176333 LY % 22.4 % 3 Unknown COMPLETE BLOOD COUNT 2361338 MON % 6.4 % 3 Unknown COMPLETE BLOOD COUNT 6551757 EOS % 2.7 % 3 Unknown COMPLETE BLOOD COUNT 5532134 BASO % 0.3 % 3 Unknown COMPLETE BLOOD COUNT 4438561 RDW 13.8 % 3 Unknown COMPLETE BLOOD COUNT 7952476 ABS CADEN 8.12 10e9/L 013 Unknown COMPLETE BLOOD COUNT 1000567 ABS LYMPH 2.67 10e9/L 013 Unknown COMPLETE BLOOD COUNT 7073470 ABS MONO 0.76 10e9/L 013 Unknown COMPLETE BLOOD COUNT 8023493 ABS EOS 0.32 10e9/L 013 Unknown COMPLETE BLOOD COUNT 7456931 ABS BASO 0.04 10e9/L 013 Unknown COMPLETE BLOOD COUNT 2370492 RDW-SD 45.6 fL 3 Unknown GFR CALC 8551200 GFR AA >60 ML/MIN 09/25/2012 Unknown GFR CALC 7981908 GFR NON-AA >60 ML/MIN 09/25/2012 Unknown ERYTHROCYTE SEDIMENTATION RATE 64651 ESR 19 MM/HR 05/06/2012 Unknown VITAMIN B 12 FOLIC ACID 89177|10772 VIT B 12 922 PG/ML 04/11 Unknown VITAMIN B 12 FOLIC ACID 21513|73327 FOLIC ACID 13.6 NG/ML Unknown URIC ACID 65637 URIC ACID 7.8 MG/DL 05/06/2012 Unknown COMPLETE BLOOD COUNT 32978 WBC 11.9 10e9/L 012 Unknown COMPLETE BLOOD COUNT 20259 RBC 5.30 10e12/L 2011 Unknown COMPLETE BLOOD COUNT 69923 HGB 16.6 g/dL 2 Unknown COMPLETE BLOOD COUNT 23082 HCT DET 47.2 % 2 Unknown COMPLETE BLOOD COUNT 45941 MCV 89.1 fL 2 Unknown COMPLETE BLOOD COUNT 19383 MCH 31.3 pg 2 Unknown COMPLETE BLOOD COUNT 10196 MCHC 35.2 g/dL 2 Unknown COMPLETE BLOOD COUNT 92116 PLT 362 10e9/L 05/06/20 12 Unknown COMPLETE BLOOD COUNT 71212 MPV 9.4 fL 2 Unknown COMPLETE BLOOD COUNT 22353 CADEN % 68.2 % 2 Unknown COMPLETE BLOOD COUNT 52210 LY % 22.0 % 2 Unknown COMPLETE BLOOD COUNT 28870 MON % 6.9 % 2 Unknown COMPLETE BLOOD COUNT 01523 EOS % 2.6 % 2 Unknown COMPLETE BLOOD COUNT 44098 BASO % 0.3 % 2 Unknown COMPLETE BLOOD COUNT 91528 RDW 12.8 % 2 Unknown COMPLETE BLOOD COUNT 71399 ABS CADEN 8.12 10e9/L 012 Unknown COMPLETE BLOOD COUNT 87982 ABS LYMPH 2.62 10e9/L 012 Unknown COMPLETE BLOOD COUNT 68396 ABS MONO 0.82 10e9/L 012 Unknown COMPLETE BLOOD COUNT 84858 ABS EOS 0.31 10e9/L 012 Unknown COMPLETE BLOOD COUNT 69951 ABS BASO 0.04 10e9/L 012 Unknown COMPLETE BLOOD COUNT 71050 RDW-SD 41.5 fL 2 Unknown GFR CALC [id number] GFR AA >60 ML/MIN 05/06/2012 Unknown GFR CALC [id number] GFR NON-AA 58.0L ML/MIN 05/06/2012 Unkno wn FREE T4 40345 FREE T4 1.15 NG/DL 05/06/2012 Unknown THYROID STIMULATING HORMONE 96253 TSH 1.568 uIU/ML 05/06/2012 Unknown COMPREHENSIVE METABOLIC 10109 AST 20 U/L 2011 Unknown COMPREHENSIVE METABOLIC 62571 ALT 12 IU/L 2011 Unknown COMPREHENSIVE METABOLIC 46305 BUN 20 MG/DL 2011 Unknown COMPREHENSIVE METABOLIC 15989 ALBUMIN 4.5 GM/DL 2011 Unknown COMPREHENSIVE METABOLIC 78583 CHLORIDE 91 MMOL/L 2011 Unknown COMPREHENSIVE METABOLIC 67341 BILI TOT 0.4 MG/DL 2011 Unknown COMPREHENSIVE METABOLIC 18548 ALK PHOS 73 U/L 2011 Unknown COMPREHENSIVE METABOLIC 62846 SODIUM 139 MMOL/L 05/06 Unknown COMPREHENSIVE METABOLIC 11624 CREATININE 1.02 MG/DL 04/11 Unknown COMPREHENSIVE METABOLIC 99077 CALCIUM 9.7 MG/DL 2011 Unknown COMPREHENSIVE METABOLIC 04825 POTASSIUM 3.1 MMOL/L 05/06 Unknown COMPREHENSIVE METABOLIC 71176 PROT TOT 7.3 GM/DL 2011 Unknown COMPREHENSIVE METABOLIC 23586 Glucose 118 MG/DL 2011 Unknown COMPREHENSIVE METABOLIC 79077 BICARB 33 MMOL/L 2011 Unknown COMPREHENSIVE METABOLIC 50560 ANION GAP 15 MEQ/L 2011 Unknown Procedures Procedure Codes Date ROUTINE VENIPUNCTURE CPT-4: 69977 09/29/2019 URINALYSIS NONAUTO W/O SCOPE CPT-4: 05615 09/29/2019 COMPREHEN METABOLIC PANEL CPT-4: 33769 09/29/2019 LIPID PANEL CPT-4: 93085 09/29/2019 A1C HPLC CPT-4: 30231 09/29/2019 ASSAY OF FREE THYROXINE CPT-4: 79323 09/29/2019 ASSAY THYROID STIM HORMONE CPT-4: 44167 09/29/2019 COMPLETE CBC W/AUTO DIFF WBC CPT-4: 36061 09/29/2019 URINALYSIS NONAUTO W/O SCOPE CPT-4: 81115 09/30/2018 MICROALBUMIN QUANTITATIVE CPT-4: 36499 09/30/2018 CEFTRIAXONE SODIUM INJECTION CPT-4: J0696 06/19/2018 THER/PROPH/DIAG INJ SC/IM CPT-4: 81321 06/19/2018 CEFTRIAXONE SODIUM INJECTION CPT-4: J0696 06/17/2018 THER/PROPH/DIAG INJ SC/IM CPT-4: 73116 06/17/2018 THER/PROPH/DIAG INJ SC/IM CPT-4: 82372 05/16/2018 KETOROLAC TROMETHAMINE INJ CPT-4: J1885 05/16/2018 ONDANSETRON HCL INJECTION CPT-4: J2405 05/16/2018 THER/PROPH/DIAG INJ SC/IM CPT-4: 84687 05/16/2018 ROUTINE VENIPUNCTURE CPT-4: 86601 03/20/2018 COMPREHEN METABOLIC PANEL CPT-4: 22831 03/20/2018 DEXAMETHASONE SODIUM PHOS CPT-4: J1100 02/11/2018 THER/PROPH/DIAG INJ SC/IM CPT-4: 51103 02/11/2018 TRIAMCINOLONE ACET INJ NOS CPT-4: J3301 02/11/2018 CEFTRIAXONE SODIUM INJECTION CPT-4: J0696 02/01/2018 THER/PROPH/DIAG INJ SC/IM CPT-4: 00721 02/01/2018 CEFTRIAXONE SODIUM INJECTION CPT-4: J0696 01/30/2018 THER/PROPH/DIAG INJ SC/IM CPT-4: 51386 01/30/2018 ROUTINE VENIPUNCTURE CPT-4: 82037 12/10/2017 ASSAY OF FREE THYROXINE CPT-4: 84859 12/10/2017 ASSAY THYROID STIM HORMONE CPT-4: 46109 12/10/2017 COMPREHEN METABOLIC PANEL CPT-4: 66302 12/10/2017 COMPLETE CBC W/AUTO DIFF WBC CPT-4: 65696 12/10/2017 LIPID PANEL CPT-4: 68949 12/10/2017 A1C HPLC CPT-4: 07238 12/10/2017 CEFTRIAXONE SODIUM INJECTION CPT-4: J0696 12/10/2017 THER/PROPH/DIAG INJ SC/IM CPT-4: 83322 12/10/2017 CEFTRIAXONE SODIUM INJECTION CPT-4: J0696 12/07/2017 THER/PROPH/DIAG INJ SC/IM CPT-4: 75397 12/07/2017 DEXAMETHASONE SODIUM PHOS CPT-4: J1100 12/07/2017 THER/PROPH/DIAG INJ SC/IM CPT-4: 38081 12/07/2017 CEFTRIAXONE SODIUM INJECTION CPT-4: J0696 10/08/2017 THER/PROPH/DIAG INJ SC/IM CPT-4: 96059 10/08/2017 CEFTRIAXONE SODIUM INJECTION CPT-4: J0696 09/21/2017 THER/PROPH/DIAG INJ SC/IM CPT-4: 25403 09/21/2017 CEFTRIAXONE SODIUM INJECTION CPT-4: J0696 09/20/2017 THER/PROPH/DIAG INJ SC/IM CPT-4: 65236 09/20/2017 REMOVAL OF NAIL PLATE CPT-4: 63197 08/29/2017 THER/PROPH/DIAG INJ SC/IM CPT-4: 23526 08/29/2017 TRIAMCINOLONE ACET INJ NOS CPT-4: J3301 08/29/2017 CEFTRIAXONE SODIUM INJECTION CPT-4: J0696 08/29/2017 THER/PROPH/DIAG INJ SC/IM CPT-4: 74676 08/29/2017 DESTRUCT PREMALG LESION (Cryosurgery) CPT-4: 66321 ROUTINE VENIPUNCTURE CPT-4: 39260 06/27/2017 ASSAY OF FREE THYROXINE CPT-4: 22988 06/27/2017 ASSAY THYROID STIM HORMONE CPT-4: 13790 06/27/2017 COMPREHEN METABOLIC PANEL CPT-4: 07107 06/27/2017 COMPLETE CBC W/AUTO DIFF WBC CPT-4: 25646 06/27/2017 EXC TR-EXT B9+REECE 0.5 CM< CPT-4: 66004 01/24/2017 THER/PROPH/DIAG INJ SC/IM CPT-4: 74438 08/02/2016 DEXAMETHASONE SODIUM PHOS CPT-4: J1100 08/02/2016 DESTRUCT PREMALG LESION (Cryosurgery) CPT-4: 05334 EXC TR-EXT B9+ERECE 0.5 CM< CPT-4: 80205 08/01/2016 AEROBIC WOUND CULTURE & STN CPT-4: 48644 07/06/2016 CEFTRIAXONE SODIUM INJECTION CPT-4: J0696 05/25/2016 THER/PROPH/DIAG INJ SC/IM CPT-4: 57573 05/25/2016 THER/PROPH/DIAG INJ SC/IM CPT-4: 35813 04/26/2016 DEXAMETHASONE SODIUM PHOS CPT-4: J1100 04/26/2016 CEFTRIAXONE SODIUM INJECTION CPT-4: J0696 04/26/2016 THER/PROPH/DIAG INJ SC/IM CPT-4: 61716 04/26/2016 THER/PROPH/DIAG INJ SC/IM CPT-4: 93233 02/09/2016 TRIAMCINOLONE ACET INJ NOS CPT-4: J3301 02/09/2016 URINALYSIS NONAUTO W/O SCOPE CPT-4: 25376 01/24/2016 URINE CULTURE/ COLONY COUNT CPT-4: 40963 01/24/2016 THER/PROPH/DIAG INJ SC/IM CPT-4: 00198 12/08/2015 TRIAMCINOLONE ACET INJ NOS CPT-4: J3301 12/08/2015 THER/PROPH/DIAG INJ SC/IM CPT-4: 21087 10/07/2015 TRIAMCINOLONE ACET INJ NOS CPT-4: J3301 10/07/2015 DESTRUCT PREMALG LESION (Cryosurgery) CPT-4: 00624 THER/PROPH/DIAG INJ SC/IM CPT-4: 07565 03/16/2015 METHYLPREDNISOLONE 40 MG INJ CPT-4: J1030 03/16/2015 DESTRUCT PREMALG LESION (Cryosurgery) CPT-4: 76919 THER/PROPH/DIAG INJ SC/IM CPT-4: 09406 09/11/2014 METHYLPREDNISOLONE 40 MG INJ CPT-4: J1030 09/11/2014 TRIAMCINOLONE ACET INJ NOS CPT-4: J3301 09/11/2014 CEFTRIAXONE SODIUM INJECTION CPT-4: J0696 09/11/2014 THER/PROPH/DIAG INJ SC/IM CPT-4: 63139 09/11/2014 ROUTINE VENIPUNCTURE CPT-4: 41995 08/27/2014 COMPREHEN METABOLIC PANEL CPT-4: 51481 08/27/2014 COMPLETE CBC W/AUTO DIFF WBC CPT-4: 38736 08/27/2014 LIPID PANEL CPT-4: 88759 08/27/2014 ROUTINE VENIPUNCTURE CPT-4: 61157 07/21/2014 ASSAY OF AMYLASE CPT-4: 40276 07/21/2014 ASSAY OF LIPASE CPT-4: 65886 07/21/2014 THER/PROPH/DIAG INJ SC/IM CPT-4: 77736 07/15/2014 TRIAMCINOLONE ACET INJ NOS CPT-4: J3301 07/15/2014 ROUTINE VENIPUNCTURE CPT-4: 13064 05/14/2014 ASSAY OF FREE THYROXINE CPT-4: 78434 05/14/2014 ASSAY THYROID STIM HORMONE CPT-4: 01212 05/14/2014 COMPREHEN METABOLIC PANEL CPT-4: 32691 05/14/2014 COMPLETE CBC W/AUTO DIFF WBC CPT-4: 86013 05/14/2014 LIPID PANEL CPT-4: 95970 05/14/2014 CEFTRIAXONE SODIUM INJECTION CPT-4: J0696 04/21/2014 THER/PROPH/DIAG INJ SC/IM CPT-4: 43066 04/21/2014 THER/PROPH/DIAG INJ SC/IM CPT-4: 03328 04/21/2014 TRIAMCINOLONE ACET INJ NOS CPT-4: J3301 04/21/2014 THER/PROPH/DIAG INJ SC/IM CPT-4: 74333 03/04/2014 METHYLPREDNISOLONE 40 MG INJ CPT-4: J1030 03/04/2014 TRIAMCINOLONE ACET INJ NOS CPT-4: J3301 03/04/2014 CEFTRIAXONE SODIUM INJECTION CPT-4: J0696 03/04/2014 THER/PROPH/DIAG INJ SC/IM CPT-4: 25254 03/04/2014 TDAP VACCINE 7 YRS/> IM CPT-4: 74253 02/27/2014 IMMUNIZATION ADMIN CPT-4: 07634 02/27/2014 DESTRUCT PREMALG LESION (Cryosurgery) CPT-4: 81770 DESTRUCT PREMALG LES 2-14 CPT-4: 05502 01/13/2014 THER/PROPH/DIAG INJ SC/IM CPT-4: 24272 10/21/2013 METHYLPREDNISOLONE 40 MG INJ CPT-4: J1030 10/21/2013 TRIAMCINOLONE ACET INJ NOS CPT-4: J3301 10/21/2013 CEFTRIAXONE SODIUM INJECTION CPT-4: J0696 08/27/2013 THER/PROPH/DIAG INJ SC/IM CPT-4: 48978 08/27/2013 THER/PROPH/DIAG INJ SC/IM CPT-4: 24525 08/27/2013 METHYLPREDNISOLONE 40 MG INJ CPT-4: J1030 08/27/2013 TRIAMCINOLONE ACET INJ NOS CPT-4: J3301 08/27/2013 THER/PROPH/DIAG INJ SC/IM CPT-4: 23555 06/23/2013 METHYLPREDNISOLONE 40 MG INJ CPT-4: J1030 06/23/2013 TRIAMCINOLONE ACET INJ NOS CPT-4: J3301 06/23/2013 THER/PROPH/DIAG INJ SC/IM CPT-4: 49066 05/26/2013 METHYLPREDNISOLONE 40 MG INJ CPT-4: J1030 05/26/2013 TRIAMCINOLONE ACET INJ NOS CPT-4: J3301 05/26/2013 ROUTINE VENIPUNCTURE CPT-4: 00963 03/05/2013 ASSAY OF FREE THYROXINE CPT-4: 44422 03/05/2013 ASSAY THYROID STIM HORMONE CPT-4: 89845 03/05/2013 COMPREHEN METABOLIC PANEL CPT-4: 99237 03/05/2013 COMPLETE CBC W/AUTO DIFF WBC CPT-4: 46948 03/05/2013 A1C GLYCOSYLATED HEMOGLOBIN TEST CPT-4: 64482 013 DRAIN/INJECT JOINT/BURSA CPT-4: 79749 12/04/2012 METHYLPREDNISOLONE 40 MG INJ CPT-4: J1030 12/04/2012 TRIAMCINOLONE ACET INJ NOS CPT-4: J3301 12/04/2012 CEFTRIAXONE SODIUM INJECTION CPT-4: J0696 11/21/2012 THER/PROPH/DIAG INJ SC/IM CPT-4: 68655 11/21/2012 THER/PROPH/DIAG INJ SC/IM CPT-4: 49666 10/14/2012 METHYLPREDNISOLONE 40 MG INJ CPT-4: J1030 10/14/2012 TRIAMCINOLONE ACET INJ NOS CPT-4: J3301 10/14/2012 URINALYSIS NONAUTO W/O SCOPE CPT-4: 68036 09/27/2012 ROUTINE VENIPUNCTURE CPT-4: 30083 09/25/2012 ASSAY OF FREE THYROXINE CPT-4: 03422 09/25/2012 ASSAY THYROID STIM HORMONE CPT-4: 35789 09/25/2012 COMPREHEN METABOLIC PANEL CPT-4: 04683 09/25/2012 COMPLETE CBC W/AUTO DIFF WBC CPT-4: 13450 09/25/2012 C-REACTIVE PROTEIN CPT-4: 58198 09/25/2012 THER/PROPH/DIAG INJ SC/IM CPT-4: 41886 08/29/2012 METHYLPREDNISOLONE 40 MG INJ CPT-4: J1030 08/29/2012 TRIAMCINOLONE ACET INJ NOS CPT-4: J3301 08/29/2012 DESTRUCT PREMALG LESION (Cryosurgery) CPT-4: 53156 THER/PROPH/DIAG INJ SC/IM CPT-4: 76756 05/06/2012 METHYLPREDNISOLONE 40 MG INJ CPT-4: J1030 05/06/2012 TRIAMCINOLONE ACET INJ NOS CPT-4: J3301 05/06/2012 VITAMIN B 12 FOLIC ACID CPT-4: 49702|96701 05/06/2012 RBC SED RATE AUTOMATED CPT-4: 69122 05/06/2012 ROUTINE VENIPUNCTURE CPT-4: 57624 05/06/2012 ASSAY OF FREE THYROXINE CPT-4: 70890 05/06/2012 ASSAY THYROID STIM HORMONE CPT-4: 62542 05/06/2012 COMPREHEN METABOLIC PANEL CPT-4: 26003 05/06/2012 COMPLETE CBC W/AUTO DIFF WBC CPT-4: 62006 05/06/2012 ASSAY OF BLOOD/URIC ACID CPT-4: 04569 05/06/2012 THER/PROPH/DIAG INJ SC/IM CPT-4: 20562 03/19/2012 KETOROLAC TROMETHAMINE INJ CPT-4: J1885 03/19/2012 KETOROLAC TROMETHAMINE INJ CPT-4: J1885 01/30/2012 THER/PROPH/DIAG INJ SC/IM CPT-4: 37984 01/30/2012 PROMETHAZINE HCL INJECTION CPT-4: J2550 01/30/2012 THER/PROPH/DIAG INJ SC/IM CPT-4: 36981 01/24/2012 METHYLPREDNISOLONE 40 MG INJ CPT-4: J1030 01/24/2012 TRIAMCINOLONE ACET INJ NOS CPT-4: J3301 01/24/2012 THER/PROPH/DIAG INJ SC/IM CPT-4: 05899 09/13/2011 KETOROLAC TROMETHAMINE INJ CPT-4: J1885 09/13/2011 THER/PROPH/DIAG INJ SC/IM CPT-4: 85721 09/13/2011 PROMETHAZINE HCL INJECTION CPT-4: J2550 09/13/2011 CEFTRIAXONE SODIUM INJECTION CPT-4: J0696 07/20/2011 THER/PROPH/DIAG INJ SC/IM CPT-4: 71276 07/20/2011 THER/PROPH/DIAG INJ SC/IM CPT-4: 07742 07/20/2011 METHYLPREDNISOLONE INJECTION CPT-4: J2930 07/20/2011 URINALYSIS NONAUTO W/O SCOPE CPT-4: 39790 05/09/2011 CEFTRIAXONE SODIUM INJECTION CPT-4: J0696 05/09/2011 THER/PROPH/DIAG INJ SC/IM CPT-4: 15251 05/09/2011 THER/PROPH/DIAG INJ SC/IM CPT-4: 09814 05/09/2011 PROMETHAZINE HCL INJECTION CPT-4: J2550 05/09/2011 HYDRATION IV INFUSION INIT CPT-4: 40908 05/09/2011 DESTRUCT PREMALG LESION (Cryosurgery) CPT-4: 80701 DESTRUCT PREMALG LES 2-14 CPT-4: 39714 07/19/2010 REMOVAL OF SKIN TAGS <W/15 CPT-4: 36026 05/30/2010 THER/PROPH/DIAG INJ SC/IM CPT-4: 42668 04/05/2010 CEFTRIAXONE SODIUM INJECTION CPT-4: J0696 04/05/2010 TRIAMCINOLONE ACET INJ NOS CPT-4: J3301 04/05/2010 METHYLPREDNISOLONE 40 MG INJ CPT-4: J1030 04/05/2010 THER/PROPH/DIAG INJ SC/IM CPT-4: 07597 04/05/2010 TRIAMCINOLONE ACET INJ NOS CPT-4: J3301 03/09/2010 METHYLPREDNISOLONE 40 MG INJ CPT-4: J1030 03/09/2010 THER/PROPH/DIAG INJ SC/IM CPT-4: 27368 03/09/2010 THER/PROPH/DIAG INJ SC/IM CPT-4: 59139 03/09/2010 CEFTRIAXONE SODIUM INJECTION CPT-4: J0696 03/09/2010 Vital Signs Date Vital 11/20/2019 Blood Pressure 1: 130/82 Code: 8480-6 Heart Rate 1: 88 bpm Height: Respiratory Rate: 20 bpm Temperature: 36.9 (C) / 98.4 (F) Weight: 10/07/2019 Blood Pressure 1: 134/82 Code: 8480-6 Heart Rate 1: 105 bpm Respiratory Rate: 17 bpm SpO2: 96% Temperature: 36.8 (C) / 98.2 (F) We ight: 198 lbs 09/30/2019 Blood Pressure 1: 132/80 Code: 8480-6 BMI: 35.8 Code: 26878-6 Heart Rate 1: 88 bpm Height: 5'4" Respiratory Rate: 20 bpm SpO2: 95% Tempera ture: 36.9 (C) / 98.5 (F) Weight: 210 lbs 05/28/2019 Blood Pressure 1: 126/82 Code: 8480-6 BMI: 35.0 Code: 23485-7 Heart Rate 1: 88 bpm Height: 5'4" [...] 1: 128/90 Code: 8480-6 BMI: 37.2 Code: 87566-6 Heart Rate 1: 84 bpm Height: 5'4" Respiratory Rate: 20 bpm SpO2: 95% Tempera ture: 36.6 (C) / 97.8 (F) Weight: 217 lbs 08/27/2018 Blood Pressure 1: 128/88 Code: 8480-6 BMI: 38.3 Code: 65356-9 Heart Rate 1: 84 bpm Height: 5'4" [...] 1: 119/72 Code: 8480-6 BMI: 37.4 Code: 90986-7 Heart Rate 1: 82 bpm Height: 5'4" Respiratory Rate: 12 bpm SpO2: 94% Tempera ture: 35.2 (C) / 95.4 (F) Weight: 218 lbs 12/18/2017 Blood Pressure 1: 128/86 Code: 8480-6 BMI: 37.8 Code: 44848-8 Heart Rate 1: 84 bpm Height: 5'4" [...] 1: 128/82 Code: 8480-6 BMI: 35.5 Code: 29781-2 Heart Rate 1: 84 bpm Height: 5'4" [...] 1: 128/82 Code: 8480-6 BMI: 30.2 Code: 03252-4 Heart Rate 1: 80 bpm Height: 5'4" [...] 1: 128/86 Code: 8480-6 BMI: 32.8 Code: 90271-6 Heart Rate 1: 66 bpm Height: 5'4" Respiratory Rate: 18 bpm Temperature: 36 .3 (C) / 97.3 (F) Weight: 191 lbs 06/23/2013 Blood Pressure 1: 132/94 Code: 8480-6 BMI: 34.0 Code: 31172-8 Heart Rate 1: 84 bpm Height: 5'4" Respiratory Rate: 20 bpm Temperature: 36 .8 (C) / 98.2 (F) Weight: 198 lbs 05/26/2013 Blood Pressure 1: 114/80 Code: 8480-6 BMI: 35.0 Code: 42122-7 Heart Rate 1: 80 bpm Height: 5'4" Respiratory Rate: 20 bpm Temperature: 36 .4 (C) / 97.6 (F) Weight: 204 lbs 04/16/2013 Blood Pressure 1: 114/82 Code: 8480-6 BMI: 36.7 Code: 59356-5 Heart Rate 1: 84 bpm Height: 5'4" Respiratory Rate: 20 bpm Temperature: 36 .7 (C) / 98.0 (F) Weight: 214 lbs 03/05/2013 Blood Pressure 1: 136/90 Code: 8480-6 BMI: 37.1 Code: 29067-9 Heart Rate 1: 84 bpm Height: 5'4" [...] 1: 168/114 Code: 8480-6 BMI: 36.2 Code: 84820-5 Heart Rate 1: 104 bpm Height: 5'4" Respiratory Rate: 20 bpm Temperature: 36 .8 (C) / 98.2 (F) Weight: 211 lbs 11/22/2012 Blood Pressure 1: 128/90 Code: 8480-6 Heart Rate 1: 88 bpm Respiratory Rate: 20 bpm SpO2: 96% Temperature: 36.8 (C) / 98.2 (F) 11/21/2012 Blood Pressure 1: 146/100 Code: 8480-6 BMI: 35.7 Code: 53490-1 Heart Rate 1: 96 bpm Height: 5'4" [...] 1: 138/100 Code: 8480-6 BMI: 35.7 Code: 63055-2 Heart Rate 1: 96 bpm Height: 5'4" Respiratory Rate: 20 bpm Temperature: 36 .8 (C) / 98.2 (F) Weight: 208 lbs 05/06/2012 Blood Pressure 1: 154/102 Code: 8480-6 BMI: 34.7 Code: 36372-3 Heart Rate 1: 116 bpm Height: 5'4" Respiratory Rate: 20 bpm Temperature: 36 .8 (C) / 98.2 (F) Weight: 202 lbs 04/03/2012 Blood Pressure 1: 134/94 Code: 8480-6 BMI: 34.8 Code: 92752-4 Heart Rate 1: 108 bpm Height: 5'4" Respiratory Rate: 20 bpm Temperature: 36 .8 (C) / 98.2 (F) Weight: 203 lbs 03/19/2012 Blood Pressure 1: 148/106 Code: 8480-6 BMI: 35.0 Code: 33604-9 Heart Rate 1: 100 bpm Height: 5'4" Respiratory Rate: 20 bpm Temperature: 36 .6 (C) / 97.9 (F) Weight: 204 lbs 02/22/2012 Blood Pressure 1: 146/94 Code: 8480-6 He art Rate 1: 88 bpm 02/21/2012 Blood Pressure 1: 172/120 Code: 8480-6 B lood Pressure 2: 152/106 Code: 8480-6 Heart Rate 1: 116 bpm 02/20/2012 Blood Pressure 1: 160/100 Code: 8480-6 BMI: 32.0 Code: 08946-5 Heart Rate 1: 84 bpm Height: 5'7" Temperature: 36.5 (C) / 97.7 (F) Weight: 204 lbs 01/30/2012 Blood Pressure 1: 152/110 Code: 8480-6 BMI: 32.0 Code: 61332-2 Heart Rate 1: 116 bpm Height: 5'7" Respiratory Rate: 20 bpm Temperature: 37 .0 (C) / 98.6 (F) Weight: 204 lbs 01/24/2012 Blood Pressure 1: 146/100 Code: 8480-6 BMI: 32.0 Code: 54767-2 Heart Rate 1: 100 bpm Height: 5'7" Respiratory Rate: 20 bpm Temperature: 36 .7 (C) / 98.0 (F) Weight: 204 lbs 01/10/2012 Blood Pressure 1: 156/94 Code: 8480-6 BMI: 32.6 Code: 61510-9 Heart Rate 1: 72 bpm Height: 5'7" Respiratory Rate: 20 bpm Temperature: 36 .8 (C) / 98.2 (F) Weight: 208 lbs 12/11/2011 Blood Pressure 1: 146/100 Code: 8480-6 Heart Rat e 1: 116 bpm Height: 5'7" Respiratory Rate: 20 bpm Temperature: 36.9 (C) / 98.4 (F) We ight: 11/09/2011 Blood Pressure 1: 148/96 Code: 8480-6 BMI: 32.1 Code: 85993-4 Heart Rate 1: 116 bpm Height: 5'7" Respiratory Rate: 20 bpm Temperature: 36 .7 (C) / 98.0 (F) Weight: 205 lbs 09/13/2011 Blood Pressure 1: 126/88 Code: 8480-6 Heart Rate 1: 88 bpm Height: 5'7" Respiratory Rate: 20 bpm Temperature: 36.9 (C) / 98.4 (F) We ight: 08/31/2011 Blood Pressure 1: 118/82 Code: 8480-6 BMI: 32.0 Code: 91579-7 Heart Rate 1: 80 bpm Height: 5'7" Temperature: 36.4 (C) / 97.6 (F) Weight: 204 lbs 07/06/2011 Blood Pressure 1: 128/86 Code: 8480-6 BMI: 30.9 Code: 29734-0 Heart Rate 1: 92 bpm Height: 5'7" Respiratory Rate: 20 bpm Temperature: 36 .9 (C) / 98.4 (F) Weight: 197 lbs 06/06/2011 Blood Pressure 1: 112/74 Code: 8480-6 BMI: 31.0 Code: 63994-8 Heart Rate 1: 72 bpm Height: 5'7" [...] 1: 128/92 Code: 8480-6 BMI: 33.6 Code: 35682-0 Heart Rate 1: 104 bpm Height: 5'4" Temperature: 36.8 (C) / 98.3 (F) Weight: 196 lbs Functional Status No Functional Status data Reason For Visit Reason For Visit Effective Dates Notes follow up 11/20/2019 sores 10/07/2019 follow up [...] Codes Date () OFFICE/OUTPATIENT VISIT EST Diagnosis: Type 2 diabetes mellitus with hyperglycemia[ICD10: E11.65] María Elena Hicks [employer] CPT-4: 15097 11/20/2019 ([id number]) OFFICE/OUTPATIENT VISIT EST Diagnosis: Ingrowing nail[ICD10: L60.0] Diagnosis: Type 2 diabetes mellitus with hyperglycemia[ICD10: E11.65] Kathleen Zuniga MARÍA ELENA Hicks [employer] CPT-4: 44209 10/07/2019 ([id number]) OFFICE/OUTPATIENT VISIT EST Diagnosis: DM w/o complication type II, uncontrolled[ICD10: E11.65] Diagnosis: Hypertriglyceridemia[ICD10: E78.1] Diagnosis: Essential hypertension[ICD10: I10] María Elena JEAN [employer] CPT-4: 67674 09/30/2019 ([id number]) NURSE/OUTPATIENT VISIT EST Diagnosis: Essential (primary) hypertension[ICD10: I10] Diagnosis: Cervicalgia[ICD10: M54.2] Diagnosis: Hyperglycemia, unspecified[ICD10: R73.9] Diagnosis: Mixed hyperlipidemia[ICD10: E78.2] María Elena JEAN [employer] CPT-4: 18990 09/29/2019 ([id number]) OFFICE/OUTPATIENT VISIT EST Diagnosis: Essential (primary) hypertension[ICD10: I10] Diagnosis: Fall from bed, sequela[ICD10: W06.XXXS] María Elena APPIAH [employer] CPT-4: 36153 05/28/2019 ([id number]) NURSE/OUTPATIENT VISIT EST Diagnosis: Essential (primary) hypertension[ICD10: I10] María Elenamarcella APPIAH [facility] CPT-4: 97003 05/19/2019 ([id number]) OFFICE/OUTPATIENT VISIT EST Diagnosis: Essential (primary) hypertension[ICD10: I10] Diagnosis: Type 2 diabetes mellitus with hyperglycemia[ICD10: E11.65] Diagnosis: Intervertebral disc disorders with radiculopathy, 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] Diagnosis: Hormone replacement therapy[ICD10: Z79.890] María Elena ELLISLINE Fabiola APPIAH DO [facility] CPT-4: 04523 01/22/2019 ([id number]) OFFICE/OUTPATIENT VISIT EST Diagnosis: Essential (primary) hypertension[ICD10: I10] Diagnosis: Type 2 diabetes mellitus with hyperglycemia[ICD10: E11.65] María Elena ELLISLINE LucioJj TD [facility] CPT-4: 81999 09/30/2018 ([id number]) OFFICE/OUTPATIENT VISIT EST Diagnosis: Pain in left elbow[ICD10: M25.522] Diagnosis: Acute stress reaction[ICD10: F43.0] Diagnosis: Primary insomnia[ICD10: F51.01] Diagnosis: Abnormal weight gain[ICD10: R63.5] María Elena BASURTO TED Fabiola APPIAH [employer] [facility] CPT-4: 57116 08/27/2018 ([id number]) OFFICE/OUTPATIENT VISIT EST Diagnosis: Acute recurrent sinusitis, unspecified[ICD10: J01.91] Diagnosis: Follicular disorder, unspecified[ICD10: L73.9] Diagnosis: Tinea corporis[ICD10: B35.4] María Elena Appiah MARÍA ELENA Fabiola APPIAH DO [facility] CPT-4: 87498 08/09/2018 ([id number]) OFFICE/OUTPATIENT VISIT EST Diagnosis: Tinea corporis[ICD10: B35.4] Diagnosis: Anxiety disorder, unspecified[ICD10: F41.9] Diagnosis: Menopausal and female climacteric states[ICD10: N95.1] María Elena [employer] MARÍA ELENA LucioJj TD [facility] CPT-4: 23559 07/22/2018 ([id number]) NURSE/OUTPATIENT VISIT EST Diagnosis: Cellulitis of right toe[ICD10: L03.031] María Elena Td APPIAH DO [facility] CPT-4: 68457 06/19/2018 ([id number]) OFFICE/OUTPATIENT VISIT EST Diagnosis: Cellulitis of right toe[ICD10: L03.031] Kathleen APPIAH DO [facility] CPT-4: 65211 06/17/2018 ([id number]) OFFICE/OUTPATIENT VISIT EST Diagnosis: Migraine without aura, intractable, without status migrainosus[ICD10: G43.019] Diagnosis: Zoster without complications[ICD10: B02.9] Kathleen APPIAH DO [facility] CPT-4: 31941 05/16/2018 ([id number]) OFFICE/OUTPATIENT VISIT EST Diagnosis: Cellulitis of right lower limb[ICD10: L03.115] Kathleen APPIAH DO [facility] CPT-4: 15137 03/20/2018 ([id number]) OFFICE/OUTPATIENT VISIT EST Diagnosis: Cellulitis of right lower limb[ICD10: L03.115] Kathleen APPIAH DO [facility] CPT-4: 35270 03/18/2018 ([id number]) OFFICE/OUTPATIENT VISIT EST Diagnosis: Cellulitis of right lower limb[ICD10: L03.115] Kathleen APPIAH DO [facility] CPT-4: 43108 03/15/2018 ([id number]) OFFICE/OUTPATIENT VISIT EST Diagnosis: Acute sinusitis, unspecified[ICD10: J01.90] Kathleen APPIAH DO [facility] CPT-4: 00866 02/11/2018 ([id number]) NURSE/OUTPATIENT VISIT EST Diagnosis: Otitis media, unspecified, right ear[ICD10: H66.91] María Elena APPIAH DO [facility] CPT-4: 66560 02/01/2018 ([id number]) OFFICE/OUTPATIENT VISIT EST Diagnosis: Acute suppurative otitis media without spontaneous rupture of ear drum, left ear[ICD10: H66.002] Diagnosis: Abnormal weight gain[ICD10: R63.5] Diagnosis: Intervertebral disc disorders with radiculopathy, 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] Kathleen APPIAH DO [facility] CPT-4: 99 214 01/30/2018 ([id number]) PREV VISIT EST AGE 40-64 Diagnosis: Encounter for general adult medical examination without abnormal findings[ICD10: Z00.00] Diagnosis: Essential (primary) hypertension[ICD10: I10] Diagnosis: Mixed hyperlipidemia[ICD10: E78.2] Diagnosis: Type 2 diabetes mellitus with hyperglycemia[ICD10: E11.65] Diagnosis: 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] María Elena APPIAH DO [facility] CPT-4: 71742 12/18/2017 ([id number]) OFFICE/OUTPATIENT VISIT EST Diagnosis: Cellulitis of right toe[ICD10: L03.031] Diagnosis: Mixed hyperlipidemia[ICD10: E78.2] Diagnosis: Essential (primary) hypertension[ICD10: I10] Diagnosis: Hyperglycemia, unspecified[ICD10: R73.9] Diagnosis: Nontoxic goiter, 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] María Elena APPIAH [employer] [facility] CPT-4: 86700 12/10/2017 ([id number]) OFFICE/OUTPATIENT VISIT EST Diagnosis: Cellulitis of right toe[ICD10: L03.031] Diagnosis: Acute sinusitis, unspecified[ICD10: J01.90] Kathleen APPIAH DO [facility] CPT-4: 42262 12/07/2017 OFFICE/OUTPATIENT VISIT EST Diagnosis: Acute maxillary sinusitis, unspecified[ICD10: J01.00] Kathleen APPIAH DO [facility] CPT-4: 75909 10/08/2017 ([id number]) OFFICE/OUTPATIENT VISIT EST Diagnosis: Cellulitis of left toe[ICD10: L03.032] María Elena [facility] CPT-4: 37480 09/21/2017 ([id number]) OFFICE/OUTPATIENT VISIT EST Diagnosis: Insomnia, unspecified[ICD10: G47.00] Diagnosis: Major depressive disorder, single episode, unspecified[ICD10: F32.9] Diagnosis: Anxiety disorder, unspecified[ICD10: F41.9] Diagnosis: Cellulitis of left toe[ICD10: L03.032] Diagnosis: Snoring[ICD10: R06.83] Kathleen APPIAH DO [facility] CPT-4: 88982 09/20/2017 ([id number]) OFFICE/OUTPATIENT VISIT EST Diagnosis: Cellulitis of left toe[ICD10: L03.032] María Elena APPIAH DO [facility] CPT-4: 41323 07/19/2017 OFFICE/OUTPATIENT VISIT EST Diagnosis: Chronic sinusitis, unspecified[ICD10: J32.9] Diagnosis: Generalized hyperhidrosis[ICD10: R61] Kathleen APPIAH DO [facility] CPT-4: 57602 06/27/2017 ([id number]) OFFICE/OUTPATIENT VISIT EST Diagnosis: Intervertebral disc disorders with radiculopathy, 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] Diagnosis: Primary insomnia[ICD10: F51.01] Diagnosis: Other fatigue[ICD10: R53.83] María Elena APPIAH DO [facility] CPT-4: 95465 04/10/2017 ([id number]) OFFICE/OUTPATIENT VISIT EST Diagnosis: Primary insomnia[ICD10: F51.01] Diagnosis: Localized edema[ICD10: R60.0] Diagnosis: 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] María Elena APPIAH DO [facility] CPT-4: 24911 12/13/2016 ([id number]) OFFICE/OUTPATIENT VISIT EST Diagnosis: Primary insomnia[ICD10: F51.01] Diagnosis: Cyanosis[ICD10: R23.0] María Elena Bazzi [employer] [facility] CPT-4: 48050 11/01/2016 ([id number]) PREV VISIT EST AGE 40-64 Diagnosis: Encounter for gynecological examination (general) (routine) without abnormal findings[ICD10: Z01.419] Diagnosis: Encounter for routine child health examination without abnormal findings[ICD10: Z00.129] María Elena APPIAH [employer] [facility] CPT-4: 18101 10/17/2016 ([id number]) OFFICE/OUTPATIENT VISIT EST Diagnosis: Other seasonal allergic rhinitis[ICD10: J30.2] María Elena APPIAH [employer] CPT-4: 50241 10/10/2016 ([id number]) OFFICE/OUTPATIENT VISIT EST Diagnosis: Pain in left arm[ICD10: M79.602] Diagnosis: Contact with and (suspected) exposure to potentially hazardous body fluids[ICD10: Z77.21] Diagnosis: 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, 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] Diagnosis: Unspecified open wound, right foot, sequela[ICD10: S91.301S] María Elena APPIAH [employer] CPT-4: 90286 09/19/2016 ([id number]) OFFICE/OUTPATIENT VISIT EST Diagnosis: Chronic sinusitis, unspecified[ICD10: J32.9] Diagnosis: Allergic rhinitis due to pollen[ICD10: J30.1] María Elena APPIAH [employer] CPT-4: 42861 08/24/2016 ([id number]) OFFICE/OUTPATIENT VISIT EST Diagnosis: Acute bronchitis, unspecified[ICD10: J20.9] María Elena PAP[facility] [employer] CPT-4: 68231 08/16/2016 ([id number]) OFFICE/OUTPATIENT VISIT EST Diagnosis: Otitis media, unspecified, right ear[ICD10: H66.91] Diagnosis: Acute bronchitis, unspecified[ICD10: J20.9] María Elena [facility] [employer] CPT-4: 35226 08/10/2016 ([id number]) OFFICE/OUTPATIENT VISIT EST Diagnosis: Acute recurrent sinusitis, unspecified[ICD10: J01.91] Diagnosis: Allergic rhinitis due to pollen[ICD10: J30.1] María Elena [facility] [employer] CPT-4: 94813 08/02/2016 ([id number]) OFFICE/OUTPATIENT VISIT EST Diagnosis: Pain in unspecified joint[ICD10: M25.50] María Elena [facility] [employer] CPT-4: 08142 07/27/2016 OFFICE/OUTPATIENT VISIT EST Diagnosis: 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] Diagnosis: Acute recurrent sinusitis, unspecified[ICD10: J01.91] Diagnosis: Other fatigue[ICD10: R53.83] Diagnosis: Primary insomnia[ICD10: F51.01] Diagnosis: Pain in unspecified joint[ICD10: M25.50] María Elena APPIAH [facility] CPT-4: 07512 07/20/2016 ([id number]) OFFICE/OUTPATIENT VISIT EST Diagnosis: Blister (nonthermal), left great toe, initial encounter[ICD10: S90.422A] Loan ELLISLINE Fabiola APPIAH [employer] [facility] CPT-4: 82105 ([id number]) OFFICE/OUTPATIENT VISIT EST Diagnosis: Acute recurrent sinusitis, unspecified[ICD10: J01.91] María Elena APPIAH [facility] CPT-4: 79666 05/25/2016 ([id number]) OFFICE/OUTPATIENT VISIT EST Diagnosis: Acute sinusitis, unspecified[ICD10: J01.90] María Elena APPIAH [facility] CPT-4: 51604 04/26/2016 ([id number]) OFFICE/OUTPATIENT VISIT EST Diagnosis: Flushing[ICD10: R23.2] Diagnosis: Primary insomnia[ICD10: F51.01] María Elenamarcella APPIAH [facility] [facility] CPT-4: 26863 03/02/2016 ([id number]) OFFICE/OUTPATIENT VISIT EST Diagnosis: Other seasonal allergic rhinitis[ICD10: J30.2] Loan ELLISLINE Fabiola APPIAH [facility] CPT-4: 05271 02/09/2016 ([id number]) OFFICE/OUTPATIENT VISIT EST Diagnosis: Primary insomnia[ICD10: F51.01] Diagnosis: Urinary tract infection, site not specified[ICD10: N39.0] María Elenamarcella APPIAH [facility] CPT-4: 57828 01/24/2016 ([id number]) OFFICE/OUTPATIENT VISIT EST Diagnosis: Other specified disorders of Eustachian tube, bilateral[ICD10: H69.83] Diagnosis: Allergic rhinitis, unspecified[ICD10: J30.9] Loan APPIAH DO [facility] CPT-4: 65299 12/23/2015 ([id number]) OFFICE/OUTPATIENT VISIT EST Diagnosis: Acute recurrent sinusitis, unspecified[ICD10: J01.91] Diagnosis: 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] Diagnosis: Allergic rhinitis, unspecified[ICD10: J30.9] María Elena APPIAH [facility] CPT-4: 88869 12/08/2015 ([id number]) OFFICE/OUTPATIENT VISIT EST Diagnosis: Allergic rhinitis, unspecified[ICD10: J30.9] Diagnosis: Pain in unspecified joint[ICD10: M25.50] María Elena APPIAH DO [facility] CPT-4: 02285 10/07/2015 ([id number]) OFFICE/OUTPATIENT VISIT EST Diagnosis: Essential (primary) hypertension[ICD10: I10] María Elena APPIAH DO [facility] CPT-4: 90701 10/06/2015 OFFICE/OUTPATIENT VISIT EST Diagnosis: Localized enlarged lymph nodes[ICD10: R59.0] Diagnosis: Local infection of the skin and subcutaneous tissue, unspecified[ICD10: L08.9] June Flores MARÍA ELENA APPIAH [facility] CPT- 4: 05821 09/14/2015 ([id number]) OFFICE/OUTPATIENT VISIT EST Diagnosis: Essential (primary) hypertension[ICD10: I10] Diagnosis: Actinic keratosis[ICD10: L57.0] María Elena APPIAH DO [facility] CPT-4: 07103 09/07/2015 ([id number]) OFFICE/OUTPATIENT VISIT EST Diagnosis: Essential (primary) hypertension[ICD10: I10] Diagnosis: Acute stress reaction[ICD10: F43.0] María Elena Seamusdawn ACUÑA DARLENE APPIAH [facility] CPT-4: 45404 08/18/2015 ([id number]) OFFICE/OUTPATIENT VISIT EST Diagnosis: Essential (primary) hypertension[ICD10: I10] María Elena APPIAH DO [facility] CPT-4: 85090 07/07/2015 ([id number]) OFFICE/OUTPATIENT VISIT EST Diagnosis: Essential (primary) hypertension[ICD10: I10] María Elena APPIAH DO [facility] CPT-4: 34987 06/24/2015 ([id number]) OFFICE/OUTPATIENT VISIT EST Diagnosis: Essential (primary) hypertension[ICD10: I10] María Elena APPIAH DO [facility] CPT-4: 90748 06/21/2015 ([id number]) OFFICE/OUTPATIENT VISIT EST Diagnosis: Essential (primary) hypertension[ICD10: I10] Diagnosis: Mixed hyperlipidemia[ICD10: E78.2] Diagnosis: Acute stress reaction[ICD10: F43.0] Diagnosis: Primary insomnia[ICD10: F51.01] María Elena APPIAH DO [facility] CPT-4: 84461 06/16/2015 ([id number]) OFFICE/OUTPATIENT VISIT EST Diagnosis: INSOMNIA NOS[ICD9: 780.52] Diagnosis: HYPERTENSION[ICD9: 401.9] Diagnosis: Stress reaction[ICD9: 308.9] María Elena APPIAH DO [facility] CPT-4: 78910 06/02/2015 ([id number]) OFFICE/OUTPATIENT VISIT EST Diagnosis: HYPERTENSION[ICD9: 401.9] Diagnosis: Stress reaction[ICD9: 308.9] María Elena APPIAH [facility] CPT-4: 69802 05/20/2015 ([id number]) OFFICE/OUTPATIENT VISIT EST Diagnosis: Skin lesion[ICD9: 709.9] 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] María Elena APPIAH DO [facility] CPT-4: 31307 05/10/2015 ([id number]) OFFICE/OUTPATIENT VISIT EST Diagnosis: SINUSITIS, ACUTE[ICD9: 461.9] Diagnosis: ALLERGIC RHINITIS[ICD9: 477.9] Diagnosis: DERMATITIS NOS[ICD9: 692.9] María Elena REHMAN [facility] CPT-4: 06469 03/16/2015 OFFICE/OUTPATIENT VISIT EST Diagnosis: Otitis media[ICD9: 382.9] Diagnosis: SINUSITIS, ACUTE[ICD9: 461.9] June APPIAH DO [facility] CPT-4: 24609 09/11/2014 ([id number]) OFFICE/OUTPATIENT VISIT EST Diagnosis: HYPERLIPIDEMIA NEC/NOS[ICD9: 272.4] María Elena APPIAH DO [facility] CPT-4: 65810 08/31/2014 ([id number]) OFFICE/OUTPATIENT VISIT EST Diagnosis: - I - HYPERTENSION[ICD9: 401.9] Diagnosis: HYPERLIPIDEMIA NEC/NOS[ICD9: 272.4] María Elena APPIAH DO [facility] CPT-4: 03036 08/27/2014 ([id number]) OFFICE/OUTPATIENT VISIT EST Diagnosis: ABDOMINAL PAIN[ICD9: 789.00] Diagnosis: DYSPEPSIA[ICD9: 536.8] Diagnosis: Thoracic back pain[ICD9: 724.1] María Elena APPIAH [facility] CPT-4: 40053 07/21/2014 ([id number]) OFFICE/OUTPATIENT VISIT EST Diagnosis: ALLERGIC RHINITIS[ICD9: 477.9] María Elena APPIAH DO [facility] CPT-4: 34892 07/15/2014 ([id number]) OFFICE/OUTPATIENT VISIT EST Diagnosis: EDEMA[ICD9: 782.3] Diagnosis: Chronic insomnia[ICD9: 780.52] María Elena APPIAH DO [facility] CPT-4: 78714 05/18/2014 ([id number]) OFFICE/OUTPATIENT VISIT EST Diagnosis: Thyromegaly[ICD9: 240.9] Diagnosis: - I - HYPERTENSION[ICD9: 401.9] Diagnosis: ROUTINE MEDICAL EXAM[ICD9: V70.0] Diagnosis: EDEMA[ICD9: 782.3] María Elena APPIAH DO [facility] CPT-4: 49233 05/14/2014 OFFICE/OUTPATIENT VISIT EST Diagnosis: BRONCHITIS, ACUTE[ICD9: 466.0] Diagnosis: SINUSITIS, ACUTE[ICD9: 461.9] María Elena APPIAH DO [facility] CPT-4: 29590 04/21/2014 OFFICE/OUTPATIENT VISIT EST Diagnosis: SINUSITIS, ACUTE[ICD9: 461.9] June APPIAH DO [facility] CPT-4: 27253 03/04/2014 ([id number]) OFFICE/OUTPATIENT VISIT EST Diagnosis: VACCINE FOR TDAP[ICD10: Z23] María Elena APPIAH DO [facility] CPT-4: 14301 02/27/2014 ([id number]) OFFICE/OUTPATIENT VISIT EST Diagnosis: Seborrheic keratoses, inflamed[ICD9: 702.11] Diagnosis: ACTINIC KERATOSIS[ICD9: 702.0] Diagnosis: INSOMNIA NOS[ICD9: 780.52] María Elena PANDYA [facility] CPT-4: 90605 01/13/2014 OFFICE/OUTPATIENT VISIT EST 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] Diagnosis: ALLERGIC RHINITIS[ICD9: 477.9] Diagnosis: Serous otitis media[ICD9: 381.4] María Elena APPIAH DO [facility] CPT-4: 45622 12/24/2013 ([id number]) OFFICE/OUTPATIENT VISIT EST Diagnosis: SINUSITIS, ACUTE[ICD9: 461.9] Diagnosis: ALLERGIC RHINITIS[ICD9: 477.9] 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] María Elena APPIAH [facility] CPT-4: 60714 11/12/2013 ([id number]) OFFICE/OUTPATIENT VISIT EST Diagnosis: ALLERGIC RHINITIS[ICD9: 477.9] Diagnosis: SINUSITIS, ACUTE[ICD9: 461.9] María Elena APPIAH DO [facility] CPT-4: 36241 10/21/2013 ([id number]) OFFICE/OUTPATIENT VISIT EST Diagnosis: ASYMPTOMATIC VARICOSE VEINS[ICD9: 454.9] Diagnosis: INSOMNIA NOS[ICD9: 780.52] [facility]: 25221 09/22/2013 OFFICE/OUTPATIENT VISIT EST Diagnosis: SINUSITIS, ACUTE[ICD9: 461.9] June APPIAH [facility] CPT-4: 83873 08/27/2013 ([id number]) OFFICE/OUTPATIENT VISIT EST Diagnosis: CEPHALGIA[ICD9: 784.0] Diagnosis: CEPHALGIA, TENSION[ICD9: 307.81] 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] María Elena APPIAH [facility] CPT-4: 62648 08/04/2013 ([id number]) OFFICE/OUTPATIENT VISIT EST Diagnosis: Cervicalgia[ICD9: 723.1] Diagnosis: SPASM OF MUSCLE[ICD9: 728.85] Diagnosis: CEPHALGIA, TENSION[ICD9: 307.81] María Elena APPIAH [facility] CPT-4: 06239 07/23/2013 ([id number]) OFFICE/OUTPATIENT VISIT EST 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] Diagnosis: ALLERGIC RHINITIS[ICD9: 477.9] María Elena APPIAH [facility] CPT-4: 48927 06/23/2013 ([id number]) OFFICE/OUTPATIENT VISIT EST Diagnosis: ALLERGIC RHINITIS[ICD9: 477.9] Diagnosis: ACUTE SEROUS OTITIS MEDIA[ICD9: 381.01] 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] María Elena APPIAH [facility] CPT-4: 77051 05/26/2013 ([id number]) OFFICE/OUTPATIENT VISIT EST Diagnosis: HYPERTENSION[ICD9: 401.9] Diagnosis: EDEMA[ICD9: 782.3] Diagnosis: Serous otitis media[ICD9: 381.4] María Elena APPIAH [facility] CPT-4: 95756 04/16/2013 ([id number]) OFFICE/OUTPATIENT VISIT EST Diagnosis: SINUSITIS, ACUTE[ICD9: 461.9] Diagnosis: ALLERGIC RHINITIS[ICD9: 477.9] Diagnosis: EDEMA[ICD9: 782.3] Diagnosis: Thyromegaly[ICD9: 240.9] Diagnosis: MALAISE AND FATIGUE[ICD9: 780.79] María Elena Lopez Fabiola APPIAH [facility] CPT-4: 53563 03/05/2013 ([id number]) OFFICE/OUTPATIENT VISIT EST Diagnosis: PAIN, LOWER BACK[ICD9: 724.2] Diagnosis: SPASM OF MUSCLE[ICD9: 728.85] María Elena Seamusdawn JUARES LucioJj TD [facility] CPT-4: 92248 12/23/2012 OFFICE/OUTPATIENT VISIT EST Diagnosis: Low back pain[ICD9: 724.2] Lashawn Hicks KRISTYN [facility] CPT-4: 65980 12/16/2012 ([id number]) OFFICE/OUTPATIENT VISIT EST Diagnosis: PAIN, LOWER BACK[ICD9: 724.2] Diagnosis: SCIATICA[ICD9: 724.3] Diagnosis: Lumbar herniated disc[ICD9: 722.10] María Elena COLON Fabiola APPIAH [facility] CPT-4: 09953 12/09/2012 ([id number]) OFFICE/OUTPATIENT VISIT EST Diagnosis: PAIN, LOWER BACK[ICD9: 724.2] Diagnosis: SCIATICA[ICD9: 724.3] Diagnosis: LUMBAR DISC DISPLACEMENT[ICD9: 722.10] María Elena MARIN Fabiola APPIAH [facility] CPT-4: 51295 12/04/2012 OFFICE/OUTPATIENT VISIT EST Diagnosis: Pneumonia[ICD9: 486] Mary JUARES LucioJj TD [facility] CPT-4: 95655 11/22/2012 ([id number]) OFFICE/OUTPATIENT VISIT EST Diagnosis: PNEUMONIA, ORGANISM[ICD9: 486] Diagnosis: Exacerbation of RAD (reactive airway disease)[ICD9: 493.92] María Elena JUARES LucioJj TD [facility] CPT-4: 63797 11/21/2012 OFFICE/OUTPATIENT VISIT EST Diagnosis: HYPERTENSION[ICD9: 401.9] Diagnosis: Cephalgia[ICD9: 784.0] Lashawn Hicks [facility] CPT-4: 06051 10/29/2012 ([id number]) OFFICE/OUTPATIENT VISIT EST Diagnosis: MALAISE AND FATIGUE[ICD9: 780.79] Diagnosis: ARTHRALGIA-MULTIPLE SITES[ICD9: 719.49] María Elena APPIAH [facility] CPT-4: 70841 10/14/2012 ([id number]) OFFICE/OUTPATIENT VISIT EST Diagnosis: URINARY FREQUENCY[ICD9: 788.41] María Elena APPIAH [facility] CPT-4: 09106 09/27/2012 ([id number]) OFFICE/OUTPATIENT VISIT EST Diagnosis: MALAISE AND FATIGUE[ICD9: 780.79] Diagnosis: ARTHRALGIA-MULTIPLE SITES[ICD9: 719.49] María Elena APPIAH [facility] CPT-4: 92971 09/25/2012 ([id number]) OFFICE/OUTPATIENT VISIT EST Diagnosis: SINUSITIS, ACUTE[ICD9: 461.9] 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] María Elena APPIAH DO [facility] CPT-4: 80073 08/29/2012 OFFICE/OUTPATIENT VISIT EST Diagnosis: ACTINIC KERATOSIS[ICD9: 702.0] Diagnosis: Inflamed seborrheic keratosis[ICD9: 702.11] Diagnosis: Skin cancer of face[ICD9: 173.31] Diagnosis: HYPERTENSION[ICD9: 401.9] María Elena SEYMOUR [facility] CPT-4: 24064 08/12/2012 ([id number]) OFFICE/OUTPATIENT VISIT EST Diagnosis: ARTHRALGIA-MULTIPLE SITES[ICD9: 719.49] Diagnosis: GOUT[ICD9: 274.9] Diagnosis: HYPERTENSION[ICD9: 401.9] Diagnosis: Tachycardia[ICD9: 785.0] María Elena REDDY [facility] CPT-4: 12242 05/06/2012 ([id number]) OFFICE/OUTPATIENT VISIT EST Diagnosis: INSOMNIA NOS[ICD9: 780.52] María Elena PANDYA [facility] CPT-4: 60831 04/03/2012 ([id number]) OFFICE/OUTPATIENT VISIT EST Diagnosis: INSOMNIA NOS[ICD9: 780.52] Diagnosis: HYPERTENSION[ICD9: 401.9] Diagnosis: MIGRAINE NOS/NOT INTRCBL[ICD9: 346.90] María Elena Waymindimaryjane MARLIN TANIA APPIAH [facility] CPT-4: 66275 03/19/2012 ([id number]) OFFICE/OUTPATIENT VISIT EST Diagnosis: CELLULITIS[ICD9: 682.9] Diagnosis: Ankle pain[ICD9: 719.47] Diagnosis: HYPERTENSION[ICD9: 401.9] María Elena Appiah MARÍA ELENA Fabiola [facility] CPT-4: 20509 02/20/2012 ([id number]) OFFICE/OUTPATIENT VISIT EST Diagnosis: MIGRAINE NOS/NOT INTRCBL[ICD9: 346.90] Diagnosis: Vomiting[ICD9: 787.03] María Elena Waymindimaryjane ELLISMARÍA ELENA LucioJj CIRO Bazzi [facility] CPT-4: 76633 01/30/2012 ([id number]) OFFICE/OUTPATIENT VISIT EST Diagnosis: EDEMA[ICD9: 782.3] Diagnosis: HYPERTENSION[ICD9: 401.9] Diagnosis: ALLERGIC RHINITIS[ICD9: 477.9] Diagnosis: ARTHRALGIA-MULTIPLE SITES[ICD9: 719.49] María Elena Waymindimaryjane BRAUNALCIDES LucioJj TD [facility] CPT-4: 65267 01/24/2012 ([id number]) OFFICE/OUTPATIENT VISIT EST Diagnosis: SPASM OF MUSCLE[ICD9: 728.85] Diagnosis: Thoracic back pain[ICD9: 724.1] Diagnosis: Cervical pain[ICD9: 723.1] María Elena Hicks KRISTYN PANDYA [facility] CPT-4: 77874 01/10/2012 OFFICE/OUTPATIENT VISIT EST Diagnosis: PAIN, LOWER BACK[ICD9: 724.2] Diagnosis: LUMBAR DISC DISPLACEMENT[ICD9: 722.10] María Elena Semausmindimaryjane MARLIN TANIA APPIAH [facility] CPT-4: 26025 12/11/2011 OFFICE/OUTPATIENT VISIT EST Diagnosis: MIGRAINE NOS/NOT INTRCBL[ICD9: 346.90] Diagnosis: SINUSITIS, ACUTE[ICD9: 461.9] María Elena Seamusdawn MONTEROMARÍA ELENA LucioJj TD [facility] CPT-4: 11126 11/09/2011 OFFICE/OUTPATIENT VISIT EST Diagnosis: MIGRAINE NOS/NOT INTRCBL[ICD9: 346.90] Diagnosis: LYMPHADENOPATHY[ICD9: 785.6] María Elena APPIAH [facility] CPT-4: 10447 09/13/2011 OFFICE/OUTPATIENT VISIT EST Diagnosis: MALAISE AND FATIGUE[ICD9: 780.79] Diagnosis: ARTHRALGIA-MULTIPLE SITES[ICD9: 719.49] María Elena APPIAH DO [facility] CPT-4: 73687 08/31/2011 OFFICE/OUTPATIENT VISIT EST Diagnosis: SINUSITIS, ACUTE[ICD9: 461.9] María Elena PhillipsJj TD [facility] CPT-4: 81853 07/20/2011 OFFICE/OUTPATIENT VISIT EST Diagnosis: HYPERTENSION[ICD9: 401.9] Diagnosis: PAIN, LOWER BACK[ICD9: 724.2] Diagnosis: SPASM OF MUSCLE[ICD9: 728.85] María Elena PhillipsJj TD [facility] CPT-4: 30205 07/06/2011 OFFICE/OUTPATIENT VISIT EST Diagnosis: MIGRAINE NOS/NOT INTRCBL[ICD9: 346.90] Diagnosis: HYPERTENSION[ICD9: 401.9] María Elena PhillipsJj SEAMUS [facility] CPT-4: 31857 05/22/2011 OFFICE/OUTPATIENT VISIT EST Diagnosis: SINUSITIS, ACUTE[ICD9: 461.9] Diagnosis: MIGRAINE NOS/NOT INTRCBL[ICD9: 346.90] Diagnosis: Dehydration[ICD9: 276.51] Diagnosis: Vomiting[ICD9: 787.03] María Elena Seamusdawn JUARES LucioJj CIRO Bazzi [facility] CPT-4: 66933 05/09/2011 ([id number]) OFFICE/OUTPATIENT VISIT EST María Elena Seamusmnidimaryjane MARLIN TANIA PhillipsJj TD [facility] CPT-4: 29424 02/14/2011 ([id number]) OFFICE/OUTPATIENT VISIT EST María Elena Seamusmindimaryjane MARLIN TANIA PhillipsJj [facility] CPT-4: 13759 02/03/2011 ([id number]) OFFICE/OUTPATIENT VISIT EST María Elena Seamusmindimaryjane MARLIN TANIA PhillipsJj MARIVELER [facility] CPT-4: 28191 01/31/2011 ([id number]) OFFICE/OUTPATIENT VISIT EST María Elena [facility]AC [facility] CPT-4: 08254 01/25/2011 ([id number]) OFFICE/OUTPATIENT VISIT EST María Elena ISAAC [facility] CPT-4: 79024 01/18/2011 ([id number]) OFFICE/OUTPATIENT VISIT EST Marí aElena MARIN [facility] CPT-4: 18796 11/29/2010 ([id number]) OFFICE/OUTPATIENT VISIT, EST María Elena BRAUNLINE [facility] CPT-4: 26190 10/10/2010 ([id number]) OFFICE/OUTPATIENT VISIT, EST María Elena MONTERO [facility] CPT-4: 57201 06/07/2010 ([id number]) OFFICE/OUTPATIENT VISIT, EST María Elena MONTERO [facility] CPT-4: 02279 04/27/2010 ([id number]) OFFICE/OUTPATIENT VISIT, EST María Elena MONTERO [facility] CPT-4: 16439 04/05/2010 ([id number]) OFFICE/OUTPATIENT VISIT, EST María Elena MONTERO [facility] CPT-4: 76774 03/09/2010 ([id number]) OFFICE/OUTPATIENT VISIT, EST María Elena MONTERO [facility] CPT-4: 24558 03/03/2010 ([id number]) OFFICE/OUTPATIENT VISIT, EST María Elena MONTERO [facility] CPT-4: 73939 01/17/2010 ([id number]) PREV VISIT, EST, AGE 40-64 María Elena [facility]MAN [facility] CPT-4: 11297 12/27/2009 Plan of Care Planned Activity Notes Codes Status Date Appointment: María Elena [facility] [phone] [id number] [place] CANCELED 11/26/2019 Visit Diagnosis Plan: Type 2 diabetes mellitus with hy perglycemia Discussion: Januvia 100mg daily Glimepride 2mg po BID Accuchecks BID Call in 2 weeks with BS readings Get formulary book ICD-9 : 250.02 ICD-10 : E11.65 11/20/2019 Appointment: María Elena Appiah WPtel: [phone] [id number] [place] FOLLOW UP 11/20/2019 Patient Education: glimepiride- [employer] C[employer]on [id number] Completed 11/20/2019 Patient Education: Januvia- [employer] Coupon [id number] Completed 11/20/2019 Visit Diagnosis Plan: Ingrowing nail [...] : E11.65 10/07/2019 Appointment: [facility]iga [address] [id number] [facility] 10/07/2019 Visit Diagnosis Plan: Hypertriglyceridemia [...] E11.65 09/30/2019 Appointment: María Elena Appiah WPtel: [address] [place], [place] [phone] [place] CHECK UP 09/30/2019 Patient Education: Premarin- [employer] Coupon [id number] https://www.[employer]/resources/getResource/61/72574y55-q692-6dve-y2 Completed 09/30/2019 Appointment: María Elena Appiah WPtel: [phone] [place], [place] [phone] [place] LAB 09/29/2019 Appointment: María Elena Appiah WPtel: [address] [place], [place] [phone] [place] Won't have the new insurance till [...] W06.XXXS 05/28/2019 Appointment: María Elena Appiah WPtel: [address] [place], [place] [phone] [place] FOLLOW UP 05/28/2019 Appointment: María Elena Appiah WPtel: [address] [place], [place] [phone] [place] BP CHECK 05/19/2019 Visit Diagnosis Plan: [...] Z79.890 01/22/2019 Appointment: María Elena Appiah WPtel: [address] [place], [place] [phone] [place] FOLLOW UP 01/22/2019 Patient Education: estradiol- [employer] Coupon [id number] https://www.[employer]/resources/getResource/61/282y501g-8yt2-2e91-1e Completed 01/22/2019 Appointment: María Elena Appiah WPtel: [address] [place], [place] [phone] [place] CANCELED 01/20/2019 Appointment: María Elena Appiah WPtel: [address] [place], [place] [phone] [place] LM NO SHOW 01/06/2019 Appointment: María Elena Appiah WPtel: [address] [place] [address] US CANCELED 10/17/2018 Appointment: María Elena Appiah WPtel: [address] [place], [place] [phone] [place] BP CHECK 10/09/2018 Visit Diagnosis Plan: [...] I10 09/30/2018 Appointment: María Elena Appiah WPtel: [address] [place] [address] US FOLLOW UP 09/30/2018 Visit Diagnosis Plan: [...] F51.01 08/27/2018 Appointment: María Elena Appiah WPtel: [address] [place] [address] ACUTE ILLNESS 08/27/2018 Appointment: María Elena Appiah WPtel: [address] [place] [address] [place] Patient stated she went out to [...] Tyle... 08/09/2018 Appointment: María Elena Appiah WPtel: [address] [place] [address] US ACUTE ILLNESS 08/09/2018 Appointment: María Elena Appiah WPtel: [address] [place] [address] [place] NO SHOW 08/08/2018 Visit Diagnosis Plan: [...] B35.4 07/22/2018 Appointment: María Elena Appiah WPtel: [address] [place] [address] ACUTE ILLNESS 07/22/2018 Appointment: María Elena Appiah WPtel: [address] [place] [address] [place] INJECTION 06/19/2018 Patient Education: Patient Medication [...] : L03.031 06/17/2018 Appointment: Kathleen Zuniga [address] [place] [address] ACUTE ILLNESS 06/17/2018 Patient Education: Patient Medication [...] ICD-10 : B02.9 05/16/2018 Appointment: Kathleen Zuniga [address] [place] [address] ACUTE ILLNESS 05/16/2018 Patient Education: Patient Medication [...] ICD-10 : L03.115 03/20/2018 Appointment: Kathleen Zuniga [address] [place], [place] [address] FOLLOW UP 03/20/2018 Patient Education: Patient Medication [...] ICD-10 : L03.115 03/18/2018 Appointment: Kathleen Zuniga [address] [place], [place] [address] FOLLOW UP 03/18/2018 Patient Education: Patient Medication [...] ICD-10 : L03.115 03/15/2018 Appointment: Kathleen Zuniga [address] [place] [address] ACUTE ILLNESS 03/15/2018 Patient Education: Patient Medication [...] ICD-10 : J01.90 02/11/2018 Appointment: Kathleen Zuniga [address] [place] [address] ACUTE ILLNESS 02/11/2018 Patient Education: Patient Medication Summary Completed 02/11/2018 Appointment: María Elena Appiah WPtel: [phone] [address] [place] INJECTION 02/01/2018 Patient Education: Patient Medication [...] ICD-10 : M51.16 01/30/2018 Appointment: Kathleen Zuniga [address] [place] [address] ACUTE ILLNESS 01/30/2018 Patient Education: Patient Medication [...] E11.65 12/18/2017 Appointment: María Elena Appiah WPtel: [address] [place] [address] Annual Well Visit 12/18/2017 Patient Education: Patient Medication Summary Completed 12/18/2017 Care Plan: Referral Order SNOMED-CT : [phone] Pending 12/18/2017 Appointment: María Elena Appiah WPtel: [address] [place] [address] INJECTION 12/10/2017 Patient Education: Patient Medication Summary [...] : L03.031 12/07/2017 Appointment: Kathleen Zuniga [address] [place], [place] [id number] ACUTE ILLNESS 12/07/2017 Patient Education: [...] : J01.00 10/08/2017 Appointment: Kathleen Zuniga [address] [place] [address] ACUTE ILLNESS 10/08/2017 Patient Education: Patient Medication Summary Completed 10/08/2017 Appointment: María Elena Appiah WPtel: [phone] [facility] [place] INJECTION 09/21/2017 Patient Education: Patient Medication [...] : R06.83 09/20/2017 App[facility]ment: [facility] [address] [facility] [facility] 09/20/2017 Patient Education: Patient Medication [...] : L60.0 08/29/2017 App[facility]ment: [facility] [address] [facility] [place] OFF[facility] [place]GERY 08/29/2017 Patient Education: Patient Medication Summary Completed 08/29/2017 Visit Diagnosis Plan: Actinic keratosis Discussion: Cr yotherapy as above ICD-9 : 702.0 ICD-10 : L57.0 08/01/2017 Appointment: María Elena Appiah [facility] [phone] [facility] [facility] 08/01/2017 Patient Education: Patient Medication Summary Completed 08/01/2017 Appointment: María Elena Appiah WPtel: [address] [address] [place], [place] [phone] PATIENT THOUGHT APPOINTMENT WAS TOMORROW 07/26/17 CALLED 15 MINUTES BEFORE APPT TO SAY SHE DIDN'T HAVE ANYONE TO COVER HER BUSINESS AND WOULD NOT MAKE IT NO SHOW 07/25/2017 Visit Diagnosis Plan: Cellulitis of left toe Discussio n: Clindamycin and notify if worsening or persistis ICD-9 : 681.10 ICD-10 : L03.032 07/19/2017 Appointment: María Elena Appiah WPtel: [address] [place], [place] [phone] MEDICATION REVIEW 07/19/2017 Patient Education: Patient Medication Summary Completed 07/19/2017 Appointment: María Elena Appiah WPtel: [facility] CANCELED 07/04/2017 Visit Diagnosis Plan: Generalized hyperhidrosis Discus ian: CBC, CMP, TSH, free T4 ordered to assess. will review labs. ICD-9 : 780.8 ICD-10 : R61 06/27/2017 Visit Diagnosis Plan: Chronic sinusitis, unspecified D iscussion: Referral sent to dr. albarado in [place] per patient request. patient has been treated multiple times for sinus infections with no recovery. patient was seen by dr sanchez in the past with no interventions. patient has deviated septum which may be affecting her sinuses. 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, including hip Discussion: Shave removal of above lesio n--sent to pathology ICD-9 : 216.7 ICD-10 : D23.72 01/24/2017 Appointment: María Elena Appiah WPtel: [address] [place] [address] 01/23 confirmed ~sl OFFICE SURGERY 01/24/2017 Patient Education: Patient Medication Summary Completed 01/24/2017 Appointment: Loan Sánchez [address] [place] [address] 01/09 rescheduled~sl RESCHEDULED 01/15/2017 Visit Diagnosis Plan: [...] L81.4 12/13/2016 Appointment: María Elena Appiah WPtel: [address] [place] [address] 12/12 confirmed ~sl MEDICATION REVIEW 12/13/2016 Patient Education: Patient Medication Summary Completed 12/13/2016 Appointment: María Elena Appiah WPtel: [address] [place], [place] [phone] [place] rescheduled for 12/13/16 at 11am RESCHEDULED 0 12/06/2016 Appointment: María Elena Appiah WPtel: [phone] [facility] [place] CANCELED 11/23/2016 Patient Education: Patient Medication [...] F51.01 11/01/2016 Appointment: María Elena Appiah WPtel: [address] [place], [place] [phone] 10/31 lm `sl 11/01 lm`sl MEDICATION REVIEW 017 Patient Education: Patient Medication Summary Completed 11/01/2016 Referral: Canelo Overton WPtel: [phone] [id number] [place] Referral Initiated 10/30/2016 Visit Diagnosis Plan: [...] ICD-10 : Z01.419 10/17/2016 Appointment: María Elena Appiahl: [address] [place], [place] [id number] 10/16 confirmed ~sl PAP 10/17/2016 Patient Education: Patient Medication Summary Completed 10/17/2016 Care Plan: MAMMOGRAM SCREENING LOINC : 2 6347-5 Pending 10/17/2016 Visit Diagnosis Plan: Other seasonal allergic rhinitis Discussion: Decadron/Garamycin Nasal [place] Mix Too soon for steroid Retry zyrtec 10mg daily ICD-9 : 477.9 ICD-10 : J30.2 10/10/2016 Appointment: María Elena Appiah WPtel: [address] [place], [place] [phone] FOLLOW UP 10/10/2016 Patient Education: Patient Medication Summary Completed 10/10/2016 Appointment: María Elena Appiah WPtel: [address] [place], [place] [phone] 10/02 reschedule `sl RESCHEDULED 10/02/2016 Visit Plan: See surgery for removal of n ew left arm lesion and right foot lesion Lyrica to use next month for left arm paresthesias Continue current meds Discussed sunscreen/sunblock combo 09/19/2016 Appointment: María Elena Appiah WPtel: [address] [place], [place] [phone] 09/18 confirmed ~sl FOLLOW UP 09/19/2016 Patient Education: Patient Medication Summary Completed 09/19/2016 Patient Education: Patient Medication Summary Completed 09/18/2016 Care Plan: MAMMOGRAM BOTH BREASTS LOINC : 22002-4 Pending 09/18/2016 Visit Plan: Discussed that needs [...] sinuses 08/24/2016 Appointment: María Elena Appiah WPtel: [address] [place] [address] ACUTE ILLNESS 08/24/2016 Patient Education: Patient Medication Summary Completed 08/24/2016 Patient Education: Patient Medication Summary Completed 08/23/2016 Care Plan: MAMMOGRAM SCREENING LOINC : 2 6347-5 Pending 08/23/2016 Visit Plan: Finish doxycycline Add Breo 100/25 1 p BID for 2 weeks If not improving within next 2 days will get CXR 08/16/2016 Appointment: María Elena Appiah WPtel: [address] [place] [address] ACUTE ILLNESS 08/16/2016 Patient Education: Patient Medication Summary Completed 08/16/2016 Visit Plan: Supportive care. Rest, Fluid s, Tylenol/Motrin prn fever or bodyaches. Notify if worsening symptoms. Doxycyline and Prednisone 08/10/2016 Appointment: María Elena Appiah WPtel: [address] [place] [address] 08/09 lm`sl....confirmed-sp FOLLOW UP 09/2015 Patient Education: Patient Medication Summary Completed 08/10/2016 Visit Plan: Saline nasal flushes prn. Ty lenol/Motrin prn headache. Notify if persists/symptoms worsening. Dexamethasone 8mg IM today May use coricedan and mucinex 08/02/2016 Appointment: María lEena Appiah WPtel: [address] [place] [address] ACUTE ILLNESS 08/02/2016 Patient Education: Patient Medication Summary Completed 08/02/2016 Visit Plan: Cryotherapy as above and lef t forearm lesion removal as above with 5-0 punch biopsy and sent to path Return in 10 days for suture removal 08/01/2016 Appointment: María Elena Appiah WPtel: [address] [place] [address] 07/31 confirmed`~sl OFFICE SURGERY 08/01/2016 Patient Education: Patient Medication Summary Completed 08/01/2016 Visit Plan: Stop clindamycin Check CBC, CMP, ESR now/STAT 07/27/2016 Appointment: María Elena Appiah WPtel: [address] [place] [address] ACUTE ILLNESS 07/27/2016 Patient Education: Patient Medication Summary Completed 07/27/2016 Visit Plan: Update lab and check ABIs to start with Will likely need cardiology evaluation to rule out PVD Clindamycin for 10 days Daily yogurt or probiotic Will return for removal of left arm lesions 07/20/2016 Appointment: María Elena Appiah WPtel: [address] [place] [address] ACUTE ILLNESS 07/20/2016 Patient Education: Patient Medication Summary Completed 07/20/2016 Patient Education: Patient Medication Summary Completed 07/20/2016 Care Plan: MAMMOGRAM BOTH BREASTS LOINC : 97069-3 Pending 07/20/2016 Care Plan: US EXAM CHEST LOINC : 32913-6 Pending 07/20/2016 Visit Plan: Wound culture collected from left great toe Appearance is somewhat staph like Rx as above Wound cleanser and skin care reviewed May need to add oral antibiotic if sores do not heal or continue to reoccur 07/06/2016 Appointment: Loan Sánchez [address] [place] [address] ACUTE ILLNESS 07/06/2016 Patient Education: Patient Medication Summary Completed 07/06/2016 Appointment: María Elena Appiah WPtel: [address] [place] [address] [place] INJECTION 05/25/2016 Patient Education: Patient Medication Summary Completed 05/25/2016 Visit Plan: Saline nasal flushes prn. Ty lenol/Motrin prn headache. Notify if persists/symptoms worsening. Dexamethasone and Rocephin given 04/26/2016 Appointment: María Elena Appiah WPtel: [address] [place] [address] ACUTE ILLNESS 04/26/2016 Patient Education: Patient Medication Summary Completed 04/26/2016 Visit Plan: Check CBC, CMP, TSH, FreeT4, HbA1C, estradiol, lipids in AM 03/02/2016 Appointment: María Elena Appiah WPtel: [address] [place] [address] 03/01 lm~sl ACUTE ILLNESS 03/02/2016 Patient Education: Patient Medication Summary Completed 03/02/2016 Visit Plan: Exam is nearly normal Needs to be taking daily antihistamine Would prefer to use oral steroids instead of shot but patient insist that oral steroids cause horrible headaches for her Will given kenalog IM instead 02/09/2016 Appointment: Loan Sánchez [address] [place] [address] ACUTE ILLNESS 02/09/2016 Patient Education: Patient Medication Summary Completed 02/09/2016 Visit Plan: Culture urine Macrobid DC xa nax Trial of Ativan 1mg q HS 01/24/2016 Appointment: María Elena Appiah WPtel: [address] [place] [address] ACUTE ILLNESS 01/24/2016 Patient Education: Patient Medication Summary Completed 01/24/2016 Visit Plan: No steroid or rocephin injec tion warranted Can have oral prednisone Continue current home regimen Needs to follow up with Dr Sanchez if problems persist 12/23/2015 Appointment: Loan Sánchez [address] [place] [address] ACUTE ILLNESS 12/23/2015 Patient Education: Patient Medication Summary Completed 12/23/2015 Visit Plan: Saline nasal flushes prn. Ty lenol/Motrin prn headache. Notify if persists/symptoms worsening. Kenalog 40mg IM today 12/08/2015 Appointment: María Elena Appiah WPtel: [address] [place] [address] 12/06 confirmed~sl ACUTE ILLNESS 12/08/2015 Patient Education: Patient Medication Summary Completed 12/08/2015 Appointment: María Elena Appiah WPtel: [address] [place] [address] ACUTE ILLNESS 11/18/2015 Patient Education: Patient Medication Summary Completed 10/11/2015 Appointment: María Elena Appiah WPtel: [address] [place] [address] [place] INJECTION 10/07/2015 Patient Education: Patient Medication Summary Completed 10/07/2015 Visit Plan: Check renal arterial doppler s and ECHO Change amlodopine to lotrel 5/20mg q HS Will need stress test as well Check CMP, uric acid, ESR 10/06/2015 Appointment: María Elena Appiah WPtel: [address] [place], [place] [phone] ACUTE ILLNESS 10/06/2015 Patient Education: Patient Medication Summary Completed 10/06/2015 Patient Education: [facility] - [employer]aving [employer] - Amlodipine Besylate - 18-64 - Dynamic Portal ID Completed 10/06/2015 Appointment: María Elena Appiah WPtel: [address] [place] [address] FOLLOW UP 09/22/2015 Visit Plan: Cephalexin 500 mg PO bid Mery ly topical Mupirocin to lesions on left lateral neck and face Follow-up in one week. Sooner if symptoms worsen 09/14/2015 Appointment: June Flores WPtel: [address] [place] [address] ACUTE ILLNESS 09/14/2015 Patient Education: Patient Medication Summary Completed 09/14/2015 Visit Plan: Change bystolic to bedtime d osing and amlodopine to morning dosing Cryotherapy as above to AKs 09/07/2015 Appointment: María Elena Appiah WPtel: [address] [place] [address] 09/06 appointment made and confirmed ~sl FOLLOW UP 09/07/2015 Patient Education: Patient Medication Summary Completed 09/07/2015 Visit Plan: Increase bystolic back to 20 mg daily but will split and take 10mg in AM and 10mg in PM Stress Reducers 08/18/2015 Appointment: María Elena Appiah WPtel: [address] [place] [address] 08/17/15 appt confirmed cn ACUTE ILLNESS 08/18 Patient Education: Patient Medication Summary Completed 08/18/2015 Appointment: María Elena Appiah WPtel: [address] [place] [address] BP CHECK 07/07/2015 Patient Education: Patient Medication Summary Completed 07/07/2015 Appointment: María Elena Appiah WPtel: [address] [place] [address] BP CHECK 06/24/2015 Patient Education: Patient Medication Summary Completed 06/24/2015 Appointment: María Elena Appiah WPtel: [address] [place] [address] BP CHECK 06/21/2015 Patient Education: Patient Medication Summary Completed 06/21/2015 Visit Plan: Lab discussed Continue curre nt meds and lifestyle modification Recheck lab in 6mos 06/16/2015 Appointment: María Elena Appiah WPtel: [address] [place] [address] 06/15 confirmed FOLLOW UP 06/16/2015 Patient Education: Patient Medication Summary Completed 06/16/2015 Patient Education: Patient Medication Summary Completed 06/15/2015 Visit Plan: Increase cymbalta to 60mg q HS Keep clonidine at current dose Recheck 2weeks Change xanax to klonopin 06/02/2015 Appointment: María Elena Appiah WPtel: [address] [place] [address] 06/02 lm FOLLOW UP 06/02/2015 Patient Education: Patient Medication Summary Completed 06/02/2015 Appointment: María Elena Appiah WPtel: [address] [place] [address] ACUTE ILLNESS 05/24/2015 Visit Plan: Increase clonidine to 0.2mg q HS Add cymbalta 30mg q HS Recheck 2weeks Stress Reducers Check fasting lab Discussed sleep study 05/20/2015 Appointment: María Elena Appiah WPtel: [address] [place] [address] ACUTE ILLNESS 05/20/2015 Patient Education: Patient Medication Summary Completed 05/20/2015 Patient Education: [facility] - [employer] - Cymbalta - 18-64 - Dynamic Portal ID Completed 05/20/2015 Appointment: María Elena Appiah WPtel: [address] [place] [address] BP CHECK 05/19/2015 Patient Education: Patient Medication Summary Completed 05/19/2015 Visit Plan: Topical Bactroban alternatin g with topical betamethasone Recheck 2weeks 05/10/2015 Appointment: María Elena Appiah WPtel: [address] [place], [place] [phone] 05/07 vm cn...05/07 appt confirmed OFFICE SURGER Y 05/10/2015 Patient Education: Patient Medication Summary Completed 05/10/2015 Referral: Patrick Chandler WPtel: [facility] [address] Referral Initiated 05/04/2015 Visit Plan: Saline nasal flushes prn. Ty lenol/Motrin prn headache. Notify if persists/symptoms worsening. Depomedrol 40mg IM today 03/16/2015 Appointment: María Elena Appiah WPtel: [address] [place] [address] ACUTE ILLNESS 03/16/2015 Patient Education: Patient Medication Summary Completed 03/16/2015 Appointment: María Elena Appiah WPtel: [address] [place], [place] [id number] ER Follow UP 03/09/2015 Visit Plan: Cryotherapy to lesions as ab ove 10/27/2014 Appointment: María Elena Appiah WPtel: [address] [place], [place] [phone] OFFICE SURGERY 10/27/2014 Patient Education: Patient Medication Summary Completed 10/27/2014 Appointment: June Flores WPtel: [address] [place], [place] [id number] ACUTE ILLNESS 09/11/2014 Patient Education: Patient Medication Summary Completed 09/11/2014 Visit Plan: Lab discussed Lipitor 10mg d aily Coenzyme Q-10 400mg daily Vitamin D3 5000u daily Recheck lipids with LFTs in os then fwup 08/31/2014 Appointment: María Elena Appiah WPtel: [address] [place] [address] 08/28 voicemail FOLLOW UP 08/31/2014 Patient Education: Patient Medication Summary Completed 08/31/2014 Appointment: María Elena Appiah WPtel: [address] [place] [address] US LAB 08/27/2014 Appointment: María Elena Appiah WPtel: [address] [place] [address] US LAB 08/27/2014 Patient Education: Patient Medication Summary Completed 08/27/2014 Appointment: María Elena Appiah WPtel: [address] [place] [address] ACUTE ILLNESS 07/23/2014 Appointment: María Elena Appiah WPtel: [address] [place] [address] ACUTE ILLNESS 07/21/2014 Patient Education: Patient Medication Summary Completed 07/21/2014 Visit Plan: Kenalog 40mg IM today Contin ue narendra and singulair Add Flonase 07/15/2014 Appointment: María Elena Appiah WPtel: [address] [place] [address] ACUTE ILLNESS 07/15/2014 Appointment: María Elena Appiah WPtel: [address] [place] [address] ACUTE ILLNESS 07/15/2014 Patient Education: Patient Medication Summary Completed 07/15/2014 Visit Plan: Will do metolazone 2.5mg prn with 6 potassium and see if causes as severe cramping Trial of of seroquel XR 50mg q PM with evening meal and let us know how works 05/18/2014 Appointment: María Elena Appiah WPtel: [address] [place] [address] 05/15 left message FOLLOW UP 05/18/2014 Patient Education: Patient Medication Summary Completed 05/18/2014 Appointment: María Elena Appiah WPtel: [address] [place], [place] [phone] LAB 05/14/2014 Patient Education: Patient Medication Summary Completed 05/14/2014 Appointment: María Elena Appiah WPtel: [address] [place], [place] [phone] [place] INJECTION 04/22/2014 Visit Plan: Tisha and Raúlluis f today a nd finish abx given from urgent care 04/21/2014 Appointment: María Elena Appiah WPtel: [address] [place], [place] [phone] [place] INJECTION 04/21/2014 Patient Education: Patient Medication Summary Completed 04/21/2014 Appointment: June Flores WPtel: [address] [place], [place] [id number] ACUTE ILLNESS 03/04/2014 Patient Education: Patient Medication Summary Completed 03/04/2014 Appointment: María Elena Appiah WPtel: [address] [place], [place] [phone] [place] INJECTION 02/27/2014 Patient Education: Patient Medication Summary Completed 02/27/2014 Visit Plan: Cryotherapy as above to all lesions Patient wants to try no meds for insomnia for a while and see how goes 01/13/2014 Appointment: María Elena Appiah WPtel: [address] [place] [phone] OFFICE SURGERY 01/13/2014 Patient Education: Patient Medication Summary Completed 01/13/2014 Visit Plan: Stop Melatonin Stop Soma Tri al of trazadone 75mg q HS See ENT for possible tubes as has had chronic ETD and serous otitis media with numerous steroids 12/24/2013 Appointment: María Elena Appiah WPtel: [address] [place], [place] [phone] ACUTE ILLNESS 12/24/2013 Patient Education: Patient Medication Summary Completed 12/24/2013 Visit Plan: Saline nasal flushes prn. Ty lenol/Motrin prn headache. Notify if persists/symptoms worsening. 11/12/2013 Appointment: María Elena Appiah WPtel: [address] [place] [address] ACUTE ILLNESS 11/12/2013 Patient Education: Patient Medication Summary Completed 11/12/2013 Appointment: María Elena Appiah WPtel: [address] [place] [address] ACUTE ILLNESS 10/21/2013 Patient Education: Patient Medication Summary Completed 10/21/2013 Visit Plan: Sleep hygiene and sleep rout ine Melatonin 10mg q HS Support stockings and observe 09/22/2013 Appointment: María Elena Appiah WPtel: [address] [place] [address] ACUTE ILLNESS 09/22/2013 Patient Education: Patient Medication Summary Completed 09/22/2013 Appointment: June Flores WPtel: [address] [place] [address] ACUTE ILLNESS 08/27/2013 Patient Education: Patient Medication Summary Completed 08/27/2013 Visit Plan: Proceed with CT scan of head /neck Proceed with occipital nerve injections Butrans 20mcg patch weekly until can get into see Dr. Mcdonough for injections 08/04/2013 Appointment: María Elena Appiah WPtel: [address] [place] [address] FOLLOW UP 08/04/2013 Patient Education: Patient Medication Summary Completed 08/04/2013 Visit Plan: OMT done Daily neck stretche s, moist heat Increase Celebrex to 200mg BID Add flexeril 07/23/2013 Appointment: María Elena Appiah WPtel: [address] [place] [address] 07/22 voicemail FOLLOW UP 07/23/2013 Patient Education: Patient Medication Summary Completed 07/23/2013 Appointment: María Elena Appiah WPtel: [address] [place] [address] ACUTE ILLNESS 06/23/2013 Patient Education: Patient Medication Summary Completed 06/23/2013 Appointment: María Elena Appiah WPtel: [address] [place] [address] ACUTE ILLNESS 05/26/2013 Patient Education: Patient Medication Summary Completed 05/26/2013 Visit Plan: Decrease clonidine to 0.1mg TID If BP remains stable consider decreasing amlodopine Prednisone for 5 days BP check in 1mo 04/16/2013 Appointment: María Elena Appiah WPtel: [address] [place] [address] 04/14 pt called and confirmed appt FOLLOW UP 04/16/2013 Patient Education: Patient Medication Summary Completed 04/16/2013 Appointment: María Elena Appiah WPtel: [address] [place] [address] ACUTE ILLNESS 03/05/2013 Patient Education: Patient Medication Summary Completed 03/05/2013 Visit Plan: Pt has MARIA ELENA on with Dr. Mcdonough Continue Butrans patch Refill Hydrocodone early tomorrow 12/23/2012 Appointment: María Elena Appiah WPtel: [address] [place] [address] FOLLOW UP 12/23/2012 Patient Education: Patient Medication Summary Completed 12/23/2012 Appointment: Lashawn Eckert WPtel: [address] [place] [address] ACUTE ILLNESS 12/16/2012 Patient Education: Patient Medication Summary Completed 12/16/2012 Visit Plan: Proceed with updated MRI of LS spine Continue gabapentin and add soma and diclofenac Will likely need to go for another epidural 12/09/2012 Appointment: María Elena Appiah WPtel: [address] [place] [address] ACUTE ILLNESS 12/09/2012 Patient Education: Patient Medication Summary Completed 12/09/2012 Visit Plan: Injection as above Finish me drol dose pack Chiropracter this afternoon 12/04/2012 Appointment: María Elena Appiah WPtel: [address] [place] [address] ACUTE ILLNESS 12/04/2012 Patient Education: Patient Medication Summary Completed 12/04/2012 Appointment: Mary Tillman WPtel: [address] [place] [address] FOLLOW UP 11/22/2012 Patient Education: Patient Medication Summary Completed 11/22/2012 Appointment: María Elena Appiah WPtel: [address] [place] [address] ACUTE ILLNESS 11/21/2012 Patient Education: Patient Medication Summary Completed 11/21/2012 Appointment: María Elena Appiah WPtel: [address] [place] [address] BP CHECK 11/07/2012 Patient Education: Patient Medication [...] re-check. 10/29/2012 Appointment: Lashawn Eckert WPtel: [address] [place] [address] ACUTE ILLNESS 10/29/2012 Patient Education: Patient Medication Summary Completed 10/29/2012 Appointment: María Elena Appiah WPtel: [address] [place], [place] [phone] ACUTE ILLNESS 10/14/2012 Patient Education: Patient Medication Summary Completed 10/14/2012 Appointment: María Elena Appiah WPtel: [address] [place], [place] [phone] UA 09/27/2012 Patient Education: Patient Medication Summary Completed 09/27/2012 Appointment: María Elena Appiah WPtel: [address] [place], [place] [id number] ACUTE ILLNESS 09/25/2012 Patient Education: Patient Medication Summary Completed 09/25/2012 Appointment: María Elena Appiah WPtel: [address] [place], [place] [phone] BP CHECK 09/24/2012 Appointment: María Elena Appiah WPtel: [address] [place], [place] [phone] ACUTE ILLNESS 08/29/2012 Patient Education: Patient Medication Summary Completed 08/29/2012 Visit Plan: Cryotherapy as above See Karlos m for right ear lesion--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 05/03 vm on pt phone...pt called on 04/11 3 pt called wanting in had no one cancel so could not get her in for an appt sooner than 05/06. ACUTE ILLNESS 05/06/2012 Patient Education: Patient Medication Summary Completed 05/06/2012 Visit Plan: Pt wants to hold on any furt her sleep medications 04/03/2012 Appointment: María Elena Appiah WPtel: [address] [place], [place] [phone] FOLLOW UP 04/03/2012 Patient Education: Patient Medication Summary Completed 04/03/2012 Appointment: María Elena Appiahtel: [address] [place], [place] [phone] FOLLOW UP 03/19/2012 Patient Education: Patient Medication Summary Completed 03/19/2012 Appointment: María Elena Appiah WPtel: [address] [place] [address] BP CHECK 02/22/2012 Patient Education: Patient Medication Summary Completed 02/22/2012 Appointment: María Elena Appiahtel: [address] [place] [address] BP CHECK 02/21/2012 Patient Education: Patient Medication Summary Completed 02/21/2012 Visit Plan: Doxycycline and bactroban fo r foot Supportive care on ankles and knees Add norvasc for BP 02/20/2012 Appointment: María Elena Appiah WPtel: [address] [place] [address] ER Follow UP 02/20/2012 Patient Education: Patient Medication Summary Completed 02/20/2012 Appointment: María Elena Appiahtel: [address] [place] [address] ACUTE ILLNESS 01/30/2012 Patient Education: Patient Medication Summary Completed 01/30/2012 Appointment: María Elena Appiahtel: [address] [place] [address] ACUTE ILLNESS 01/24/2012 Patient Education: Patient Medication Summary Completed 01/24/2012 Visit Plan: Daily back stretches, moist heat, Biofreeze prn OMT done 01/10/2012 Appointment: María Elena Appiahtel: [address] [place] [address] ACUTE ILLNESS 01/10/2012 Patient Education: Patient Medication Summary Completed 01/10/2012 Appointment: María Elena Appiah WPtel: [address] [place] [address] [place] FOLLOW UP 12/11/2011 Patient Education: Patient Medication Summary Completed 12/11/2011 Appointment: María Elena Appiahtel: [address] [place] [address] ACUTE ILLNESS 11/09/2011 Patient Education: Patient Medication Summary Completed 11/09/2011 Appointment: María Elena Appiah WPtel: [address] [place] [address] ACUTE ILLNESS 09/13/2011 Patient Education: Patient Medication Summary Completed 09/13/2011 Visit Plan: Check CBC, TSH, Free T4, CMP , ESR, Vit D, B12 now Start Prednisone today 08/31/2011 Appointment: María Elena Appiahtel: [address] [place] [address] ACUTE ILLNESS 08/31/2011 Patient Education: Patient Medication Summary Completed 08/31/2011 Appointment: María Elena Appiah WPtel: [address] [place] [address] [place] INJECTION 07/20/2011 Patient Education: Patient Medication Summary Completed 07/20/2011 Visit Plan: Continue current meds Monite r BP Cont stretches from PT 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 07/06/2011 Appointment: María Elena Appiahtel: [address] [place] [address] FOLLOW UP 07/06/2011 Patient Education: Patient Medication Summary Completed 07/06/2011 Appointment: María Elena Appiahtel: [address] [place] [address] BP CHECK 06/06/2011 Patient Education: Patient Medication Summary Completed 06/06/2011 Visit Plan: Add Bystolic at 2.5mg QAM Ad d Robaxin 750mg 2 po q HS BP check in 2wks 05/22/2011 Appointment: María Elena Appiah WPtel: [address] [place] [address] FOLLOW UP 05/22/2011 Patient Education: Patient Medication Summary Completed 05/22/2011 Appointment: María Elena Appiahtel: [address] [place] [address] ER Follow UP 05/09/2011 Patient Education: Patient Medication Summary Completed 05/09/2011 Appointment: María Elena Appiahtel: [address] [place] [address] FOLLOW UP 02/22/2011 Visit Plan: Rx written for Hydrocodone 1 0/325mg #240 See Ortho 02/14/2011 Appointment: María Elena Appiah WPtel: [address] [place] [address] [place] OMT 02/14/2011 Patient Education: Patient Medication [...] work. 02/03/2011 Appointment: Lashawn Eckert WPtel: [address] [place] [address] ACUTE ILLNESS 02/03/2011 Patient Education: Patient Medication Summary Completed 02/03/2011 Visit Plan: OMT done Cont daily stretche s 01/31/2011 Appointment: María Elena Appiah WPtel: [address] [place] [address] ACUTE ILLNESS 01/31/2011 Patient Education: Patient Medication Summary Completed 01/31/2011 Visit Plan: Continue pain meds OMT done Proceed with PT No work this summer01/25/2011 Appointment: María Elena Appiah WPtel: [address] [place] [address] ACUTE ILLNESS 01/25/2011 Patient Education: Patient Medication Summary Completed 01/25/2011 Visit Plan: Start PT Long discussion abo ut getting pain meds from only us and can only have max of 4grams of tylenol per day Change to Hydrocodone 10/325mg 1- 2 po TID prn pain--#180 called to [place] 01/18/2011 Appointment: María Elena Appiahtel: [address] [place] [address] FOLLOW UP 01/18/2011 Patient Education: Patient Medication Summary Completed 01/18/2011 Visit Plan: Daily back stretches, moist heat, Biofreeze prn 11/29/2010 Appointment: María Elena Appiah WPtel: [address] [place] [address] ER Follow UP 11/29/2010 Patient Education: Patient Medication Summary Completed 11/29/2010 Visit Plan: Saline nasal flushes prn. Ty lenol/Motrin prn headache. Notify if persists/symptoms worsening. Finish augmentin Add Medrol Dose Pack 10/10/2010 Appointment: María Elena Appiahtel: [address] [place] [address] ACUTE ILLNESS 10/10/2010 Patient Education: Patient Medication Summary Completed 10/10/2010 Visit Plan: Cryotherapy x3 to multiple l esions on both forearms 07/19/2010 Appointment: María Elena Appiahtel: [address] [place] [address] OFFICE SURGERY 07/19/2010 Patient Education: Patient Medication Summary Completed 07/19/2010 Appointment: María Elena Appiahtel: [address] [place] [address] BP CHECK 07/06/2010 Patient Education: Patient Medication Summary Completed 07/06/2010 Appointment: María Elena Appiahtel: [address] [place] [address] BP CHECK 06/30/2010 Patient Education: Patient Medication Summary Completed 06/30/2010 Appointment: María Elena Appiahtel: [address] [place] [address] BP CHECK 06/20/2010 Patient Education: Patient Medication Summary Completed 06/20/2010 Visit Plan: Change Diovan to Exforge 160 /5mg QD OMT done to thoracics BP check in 2wks 06/07/2010 Appointment: María Elena Appiah WPtel: [address] [place], [place] [phone] FOLLOW UP 06/07/2010 Patient Education: Patient Medication Summary Completed 06/07/2010 Appointment: María Elena Appiah WPtel: [address] [place], [place] [phone] BP CHECK 06/03/2010 Patient Education: Patient Medication Summary Completed 06/03/2010 Appointment: María Elena Appiah WPtel: [address] [place], [place] [phone] BP CHECK 06/01/2010 Patient Education: Patient Medication Summary Completed 06/01/2010 Visit Plan: Irritated skin tags to left neck x2 excised at base with scissors and base cauterized 05/30/2010 Appointment: María Elena Appiah WPtel: [address] [place], [place] [phone] OFFICE SURGERY 05/30/2010 Patient Education: Patient Medication Summary Completed 05/30/2010 Visit Plan: Saline nasal flushes prn. Ty lenol/Motrin prn headache. Notify if persists/symptoms worsening. Restart Nasonex Has allergy testing set for May 25 04/27/2010 Appointment: María Elena Appiah WPtel: [address] [place], [place] [phone] ACUTE ILLNESS 04/27/2010 Patient Education: Patient Medication Summary Completed 04/27/2010 Visit Plan: Saline nasal flushes prn. Ty lenol/Motrin prn headache. Notify if persists/symptoms worsening. Omnaris BID plus injections 04/05/2010 Appointment: María Elena Appiah WPtel: [address] [place], [place] [phone] ACUTE ILLNESS 04/05/2010 Patient Education: Patient Medication Summary Completed 04/05/2010 Visit Plan: Saline nasal flushes prn. Ty lenol/Motrin prn headache. Notify if persists/symptoms worsening. 03/09/2010 Appointment: María Elena Appiah WPtel: [address] [place] [address] ACUTE ILLNESS 03/09/2010 Patient Education: Patient Medication Summary Completed 03/09/2010 Visit Plan: Cont Clonidine as is Cont Pr emarin Fwup with surgery as scheduled 03/03/2010 Appointment: María Elena Appiah WPtel: [address] [place] [address] FOLLOW UP 03/03/2010 Patient Education: Patient Medication Summary Completed 03/03/2010 Visit Plan: Check Pelvic US now Discusse tacho Dand C vs Hysterectomy 01/17/2010 Appointment: María Elena Appiah WPtel: [address] [place] [address] ACUTE ILLNESS 01/17/2010 Patient Education: Patient Medication Summary Completed 01/17/2010 Visit Plan: Check fasting lab and schedu le Mammogram 2gm Na Diet Trial of Ambien 10mg qhs Fwup pending lab results 12/27/2009 Appointment: María Elena Appiah WPtel: [address] [place] [address] ESTABLISHED PATIENT 12/27/2009 Patient Education: Patient Medication Summary Completed 12/27/2009 Referral: Canelo Overton WPtel: [address] [place] [address] [place] Referral Initiated Referral: Philipp Flores WPtel: [address] [id number] [place] Referral Appointment Requested Instructions Comment . [...]
--- OUTSIDE RECORDS SUMMARY | 2020-03-13 05:06 | XMS REPORT | CCD ---
Author Author Gale Appiah D.O. 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 Name Role Phone María Elena Appiah D.O., PP Unavailable CCM Unavailable Summary Purpose Interface Exchange Insurance Providers Payer name Policy type / Coverage type Covered libertarian ID Effective Begin Date Effective End Date [facility] Commercial Insurance [id number] Unknown Family History Family History data not found Social History Social History Element Codes Description Effective Dates Tobacco history SNOMED CT: 881610825 Never smoker 05/22/2011 Allergies, Adverse Reactions, Alerts [...] Fill Instructions cyclobenzaprine 10 mg tablet RxNorm: 625535 TAKE ONE TA BLET BY MOUTH THREE TIMES A DAY NEEDED FOR MUSCLE SPASMS 01/05/2020 No Stop Date Active triamterene 75 mg-hydrochlorothiazide 50 mg tablet RxNorm: 3 59309 TAKE ONE TABLET BY MOUTH DAILY 12/29/2019 No Stop Date Active Klor-Con 8 mEq tablet,extended release RxNorm: 751935 T FARRUKH ONE TABLET BY MOUTH TWICE A DAY 12/19/2019 No Stop Date Active allopurinol 300 mg tablet RxNorm: 290933 TAKE ONE TABLET BY LOPEZ TH DAILY 12/19/2019 No Stop Date Active glimepiride 2 mg tablet RxNorm: 926422 TAKE ONE TABLET BY MOUTH TWICE A DAY 12/19/2019 No Stop Date Active hydrocodone 10 mg-acetaminophen 325 mg tablet RxNorm: 855270 1-2 Tablet(s) Oral three times a day as needed for pain 12/10/2019 No Stop Date Active Januvia 100 mg tablet RxNorm: 634115 1 Tablet(s) Oral QD 11/20/2019 0 11/20/2019 Inactive glimepiride 2 mg tablet RxNorm: 724588 1 Tablet(s) Oral two sawyer es a day 11/20/2019 12/18/2019 Inactive cyclobenzaprine 10 mg tablet RxNorm: 855630 TAKE ONE TA BLET BY MOUTH THREE TIMES A DAY NEEDED FOR MUSCLE SPASMS 11/17/2019 01/04/2020 Inactive doxepin 25 mg capsule RxNorm: 3781690 TAKE ONE CAPSULE B Y MOUTH EVERY NIGHT AT BEDTIME NEEDED FOR SLEEP 11/16/2019 No Stop Date Active Klor-Con 8 mEq tablet,extended release RxNorm: 551269 T FARRUKH ONE TABLET BY MOUTH TWICE A DAY 11/16/2019 12/18/2019 Inactive hydrocodone 10 mg-acetaminophen 325 mg tablet RxNorm: 731279 1-2 Tablet(s) Oral three times a day as needed for pain 11/10/2019 12/09/2019 Inactive cyclobenzaprine 10 mg tablet RxNorm: 603294 TAKE ONE TA BLET BY MOUTH THREE TIMES A DAY NEEDED FOR MUSCLE SPASMS 10/23/2019 11/16/2019 Inactive duloxetine 60 mg capsule,delayed release RxNorm: 114117 1 Capsu le(s) Oral QD 10/17/2019 04/13/2020 Active celecoxib 200 mg capsule RxNorm: 680795 1 Capsule(s) Or al two times a day as needed for pain 10/17/2019 01/14/2020 Active lisinopril 20 mg tablet RxNorm: 676968 1 Tablet(s) Oral QD 10/17/19 20 04/13/2020 Active gabapentin 300 mg capsule RxNorm: 519451 1 Capsule(s) O ral every night at bedtime 10/17/2019 01/15/2020 Active Singulair 10 mg tablet RxNorm: 411309 1 Tablet(s) Oral QD 10/17/2019 04/14/2020 Active metoprolol tartrate 100 mg tablet RxNorm: 943369 1 Tabl et(s) Oral two times a day 10/17/2019 04/13/2020 Active clonidine HCl 0.1 mg tablet RxNorm: 093890 1 Tablet(s) Oral fou r times a day 10/17/2019 04/13/2020 Active Januvia 100 mg tablet RxNorm: 982268 1 Tablet(s) Oral QD 10/17/2019 No Stop Date Active Lipitor 10 mg tablet RxNorm: 656814 1 Tablet(s) Oral QD 10/17/2019 Active Steglatro 15 mg tablet RxNorm: 6142669 1 Tablet(s) Oral QD 10/17/19 20 No Stop Date Active Klor-Con 8 mEq tablet,extended release RxNorm: 956925 1 Tablet(s) Oral two times a day 10/17/2019 11/15/2019 Inactive Glyxambi 25 mg-5 mg tablet RxNorm: 9780141 1 Tablet(s) Oral QD 01/202010/16/2019 Inactive Patient will bring in copay discount card as well Glyxambi 25 mg-5 mg tablet RxNorm: 9458202 1 Tablet(s) Oral QD 01/202010/14/2019 Inactive Patient will bring in copay discount card as well Keflex 500 mg capsule RxNorm: 283533 1 Capsule(s) Oral two time s a day 10/07/2019 10/14/2019 Inactive Premarin 1.25 mg tablet RxNorm: 230743 1 Tablet(s) Oral QD 09/30/1906/25/2020 Active hydrocodone 10 mg-acetaminophen 325 mg tablet RxNorm: 698911 1-2 Tablet(s) Oral three times a day as needed for pain 09/30/2019 09/30/2019 Inactive baclofen 10 mg tablet RxNorm: 443363 TAKE ONE TABLET BY MOUTH THREE TIMES A DAY NEEDED 09/19/2019 No Stop Date Active gabapentin 300 mg capsule RxNorm: 326729 TAKE ONE CAPSU LE BY MOUTH EVERY NIGHT AT BEDTIME 09/19/2019 10/16/2019 Inactive Klor-Con 8 mEq tablet,extended release RxNorm: 454948 T FARRUKH ONE TABLET BY MOUTH TWICE A DAY 1 Tablet(s) Oral two times a day 09/19/2019 10/16/2019 Renu ctive hydrocodone 10 mg-acetaminophen 325 mg tablet RxNorm: 734229 1-2 Tablet(s) Oral three times a day as needed for pain 09/19/2019 09/29/2019 Inactive duloxetine 60 mg capsule,delayed release RxNorm: 369753 TAKE ONE CAPSULE BY MOUTH DAILY 09/11/2019 10/16/2019 Inactive Lipitor 10 mg tablet RxNorm: 882271 TAKE ONE TABLET BY MOUTH AT BEDTIME 09/11/2019 10/16/2019 Inactive lisinopril 20 mg tablet RxNorm: 527925 TAKE ONE TABLET BY MOUTH DAILY .... THIS REPLACE 10MG TABLETS 09/11/2019 10/16/2019 Inactive triamterene 75 mg-hydrochlorothiazide 50 mg tablet RxNorm: 3 54902 TAKE ONE TABLET BY MOUTH DAILY 09/11/2019 12/28/2019 Inactive allopurinol 300 mg tablet RxNorm: 164661 TAKE ONE TABLET BY LOPEZ TH DAILY 09/11/2019 12/18/2019 Inactive celecoxib 200 mg capsule RxNorm: 036708 TAKE ONE CAPSUL E BY MOUTH TWICE A DAY NEEDED FOR PAIN 09/11/2019 10/16/2019 Inactive clonidine HCl 0.1 mg tablet RxNorm: 256573 TAKE ONE TAB LET BY MOUTH FOUR TIMES A DAY 09/11/2019 10/16/2019 Inactive doxepin 25 mg capsule RxNorm: 3929488 1 Capsule(s) Oral every night at bedtime as needed for sleep 08/21/2019 11/15/2019 Inactive hydrocodone 10 mg-acetaminophen 325 mg tablet RxNorm: 215849 1-2 Tablet(s) PO TID 08/12/2019 09/29/2019 Inactive as needed for pa in - Previous quantity #240, will start dosing for #180 in April 2011 per Doctor Td. Medrol (Dustin) 4 mg tablets in a dose pack RxNorm: 531876 Tablet(s) Oral As Directed 07/21/2019 09/29/2019 Inactive Premarin 1.25 mg tablet RxNorm: 032474 1 Tablet(s) Oral QD 07/02/2009/29/2019 Inactive hydrocodone 10 mg-acetaminophen 325 mg tablet RxNorm: 961847 1-2 Tablet(s) PO TID 07/01/2019 08/11/2019 Inactive as needed for pa in - Previous quantity #240, will start dosing for #180 in April 2011 per Doctor Td. gabapentin 300 mg capsule RxNorm: 000953 1 Capsule(s) PO QHS 201809/18/2019 Inactive celecoxib 200 mg capsule RxNorm: 156353 1 Capsule(s) Or al two times a day as needed for pain 06/27/2019 06/27/2019 Inactive furosemide 40 mg tablet RxNorm: 448773 TAKE ONE TABLET BY MOUTH EVERY MORNING NEEDED FOR EDEMA . TAKE WITH POTASSIUM 06/24/2019 No Stop Date Active doxepin 25 mg capsule RxNorm: 8829076 TAKE ONE CAPSULE B Y MOUTH EVERY NIGHT AT BEDTIME NEEDED FOR SLEEP 06/24/2019 08/20/2019 Inactive Singulair 10 mg tablet RxNorm: 991264 TAKE ONE TABLET BY MOUTH JOSÉ Y 06/24/2019 10/16/2019 Inactive lisinopril 20 mg tablet RxNorm: 078717 TAKE ONE TABLET BY MOUTH DAILY .... THIS REPLACE 10MG TABLETS 06/24/2019 09/10/2019 Inactive nystatin-triamcinolone 100,000 unit/g-0.1 % topical cream Rx Norm: 9617362 1 Application Topical two times a day 06/12/2019 06/19/2019 Inactive apply BID for 1 week nystatin-triamcinolone 100,000 unit/g-0.1 % topical cream Rx Norm: 6932169 1 Application Topical two times a day 06/12/2019 06/11/2019 Inactive apply BID for 1 week hydrocodone 10 mg-acetaminophen 325 mg tablet RxNorm: 379720 1-2 Tablet(s) PO QID as needed for pain MUST LAST 30 DAYS 05/28/2019 06/26/2019 Inactiv e (Response to an electronic controlled substance refill request - RxReferenceNumber: [id number]) baclofen 20 mg tablet RxNorm: 290578 1 Tablet(s) PO TID as needed for muscle spasm 05/19/2019 05/27/2019 Inactive gabapentin 300 mg capsule RxNorm: 098158 1 Capsule(s) PO QHS 201805/27/2019 Inactive lisinopril 20 mg tablet RxNorm: 710315 1 Tablet(s) PO Q D TAKE ONE TABLET BY MOUTH DAILY, REPLACES 10 MG DOSE 05/19/2019 06/23/2019 Inactive doxepin 25 mg capsule RxNorm: 0349086 TAKE ONE CAPSULE B Y MOUTH EVERY NIGHT AT BEDTIME NEEDED FOR SLEEP 05/16/2019 06/14/2019 Inactive lisinopril 20 mg tablet RxNorm: 976942 TAKE ONE TABLET BY MOUTH DAILY, REPLACES 10 MG DOSE 05/16/2019 05/18/2019 Inactive Singulair 10 mg tablet RxNorm: 044198 TAKE ONE TABLET BY MOUTH JOSÉ Y 05/16/2019 06/14/2019 Inactive gabapentin 300 mg capsule RxNorm: 995555 1 Capsule(s) PO QHS 201805/04/2019 Inactive estropipate 1.5 mg tablet RxNorm: 394842 1 Tablet(s) PO QD 05/05/20 19 05/27/2019 Inactive estropipate 1.5 mg tablet RxNorm: 463036 1 Tablet(s) PO QD 05/05/20 19 05/04/2019 Inactive gabapentin 300 mg capsule RxNorm: 796905 1 Capsule(s) PO QHS 201805/18/2019 Inactive hydrocodone 10 mg-acetaminophen 325 mg tablet RxNorm: 045465 1-2 Tablet(s) PO QID as needed for pain MUST LAST 30 DAYS 04/25/2019 05/24/2019 Inactiv e (Response to an electronic controlled substance refill request - RxReferenceNumber: [id number]) cyclobenzaprine 10 mg tablet RxNorm: 254436 TAKE ONE TA BLET BY MOUTH THREE TIMES A DAY NEEDED FOR MUSCLE SPASMS 04/24/2019 05/18/2019 Inactive metoprolol tartrate 100 mg tablet RxNorm: 187845 TAKE O NE TABLET BY MOUTH TWICE A DAY 04/24/2019 10/16/2019 Inactive Lyrica 75 mg capsule RxNorm: 456151 1 Capsule(s) PO QHS 03/25/2019 Inactive duloxetine 60 mg capsule,delayed release RxNorm: 455843 TAKE ONE CAPSULE BY MOUTH DAILY 03/21/2019 05/19/2019 Inactive triamterene 75 mg-hydrochlorothiazide 50 mg tablet RxNorm: 3 13419 TAKE ONE TABLET BY MOUTH DAILY 03/21/2019 05/19/2019 Inactive Klor-Con 8 mEq tablet,extended release RxNorm: 911711 T FARRUKH ONE TABLET BY MOUTH TWICE A DAY 03/21/2019 09/18/2019 Inactive Lipitor 10 mg tablet RxNorm: 439370 TAKE ONE TABLET BY MOUTH AT BEDTIME 03/21/2019 09/10/2019 Inactive clonidine HCl 0.1 mg tablet RxNorm: 051598 TAKE ONE TAB LET BY MOUTH FOUR TIMES A DAY 03/21/2019 05/19/2019 Inactive allopurinol 300 mg tablet RxNorm: 097358 TAKE ONE TABLET BY LOPEZ TH DAILY 03/21/2019 05/19/2019 Inactive hydrocodone 10 mg-acetaminophen 325 mg tablet RxNorm: 574598 1-2 Tablet(s) PO QID as needed for pain MUST LAST 30 DAYS 02/28/2019 03/29/2019 Inactiv e (Response to an electronic controlled substance refill request - RxReferenceNumber: [id number]) furosemide 40 mg tablet RxNorm: 710501 TAKE ONE TABLET BY MOUTH EVERY MORNING NEEDED FOR EDEMA . TAKE WITH POTASSIUM 02/21/2019 03/22/2019 Inactive cyclobenzaprine 10 mg tablet RxNorm: 242420 TAKE ONE TA BLET BY MOUTH THREE TIMES A DAY NEEDED FOR MUSCLE SPASMS 02/21/2019 04/21/2019 Inactive lisinopril 20 mg tablet RxNorm: 731499 TAKE ONE TABLET BY MOUTH DAILY, REPLACES 10 MG DOSE 02/21/2019 05/15/2019 Inactive doxepin 25 mg capsule RxNorm: 3468577 TAKE ONE CAPSULE B Y MOUTH EVERY NIGHT AT BEDTIME NEEDED FOR SLEEP 02/21/2019 05/15/2019 Inactive nystatin 100,000 unit/gram topical cream RxNorm: 292030 APPLY TO AFFECTED AREA(S) TWO TIMES A DAY 02/21/2019 03/22/2019 Inactive estradiol 1 mg tablet RxNorm: 541065 2 Tablet(s) PO QD replaces premarin 01/22/2019 05/04/2019 Inactive lisinopril 20 mg tablet RxNorm: 874017 TAKE ONE TABLET BY MOUTH DAILY, REPLACES 10 MG DOSE 01/20/2019 02/18/2019 Inactive cyclobenzaprine 10 mg tablet RxNorm: 032377 TAKE ONE TA BLET BY MOUTH THREE TIMES A DAY NEEDED FOR MUSCLE SPASMS 01/20/2019 02/18/2019 Inactive metoprolol tartrate 100 mg tablet RxNorm: 487822 TAKE O NE TABLET BY MOUTH TWICE A DAY 01/20/2019 02/18/2019 Inactive cyclobenzaprine 10 mg tablet RxNorm: 862852 TAKE ONE TA BLET BY MOUTH THREE TIMES A DAY NEEDED FOR MUSCLE SPASMS 12/19/2018 01/17/2019 Inactive lisinopril 20 mg tablet RxNorm: 825113 TAKE ONE TABLET BY MOUTH DAILY, REPLACES 10 MG DOSE 12/19/2018 01/17/2019 Inactive duloxetine 60 mg capsule,delayed release RxNorm: 520373 TAKE ONE CAPSULE BY MOUTH DAILY 12/19/2018 01/17/2019 Inactive Lipitor 10 mg tablet RxNorm: 545082 TAKE ONE TABLET BY MOUTH AT BEDTIME 12/19/2018 01/17/2019 Inactive cyclobenzaprine 10 mg tablet RxNorm: 205255 1 Tablet(s) PO TID as needed for muscle spasm 11/19/2018 12/18/2018 Inactive Singulair 10 mg tablet RxNorm: 129517 1 Tablet(s) PO QD 11/19/2018 Inactive lisinopril 20 mg tablet RxNorm: 788937 TAKE ONE TABLET BY MOUTH DAILY, REPLACES 10 MG DOSE 11/15/2018 12/18/2018 Inactive hydrocodone 10 mg-acetaminophen 325 mg tablet RxNorm: 643384 1-2 Tablet(s) PO QID as needed for pain MUST LAST 30 DAYS 11/13/2018 12/12/2018 Inactiv e (Response to an electronic controlled substance refill request - RxReferenceNumber: [id number]) nystatin 100,000 unit/gram topical cream RxNorm: 582099 APPLY TO AFFECTED AREA(S) TWO TIMES A DAY 10/23/2018 11/06/2018 Inactive lisinopril 20 mg tablet RxNorm: 929234 1 Tablet(s) PO QD replac es 10mg dose 10/18/2018 11/14/2018 Inactive hydrocodone 10 mg-acetaminophen 325 mg tablet RxNorm: 212946 1-2 Tablet(s) QID as needed for pain MUST LAST 30 DAYS 10/08/2018 11/06/2018 Inactive (Response to an electronic controlled substance refill request - RxReferenceNumber: [id number]) lisinopril 10 mg tablet RxNorm: 593638 1 Tablet(s) PO QD 10/03/2018 0 01/21/2019 Inactive Celebrex 200 mg capsule RxNorm: 347389 TAKE ONE CAPSULE BY MOUT H TWICE A DAY 09/30/2018 05/04/2019 Inactive cyclobenzaprine 10 mg tablet RxNorm: 892534 TAKE ONE TA BLET BY MOUTH THREE TIMES A DAY NEEDED FOR MUSCLE SPASMS 09/30/2018 11/18/2018 Inactive doxepin 25 mg capsule RxNorm: 5473600 TAKE ONE CAPSULE B Y MOUTH EVERY NIGHT AT BEDTIME NEEDED 09/05/2018 10/16/2018 Inactive omeprazole 40 mg capsule,delayed release RxNorm: 469046 TAKE ONE CAPSULE BY MOUTH DAILY 09/05/2018 01/21/2019 Inactive furosemide 40 mg tablet RxNorm: 522917 TAKE ONE TABLET BY MOUTH EVERY MORNING NEEDED FOR EDEMA . TAKE WITH POTASSIUM 09/05/2018 11/03/2018 Inactive phentermine 37.5 mg tablet RxNorm: 947822 1 Tablet(s) PO QAM 201701/21/2019 Inactive doxepin 25 mg capsule RxNorm: 7184774 1 Capsule(s) PO QH S as needed for sleep TAKE ONE CAPSULE BY MOUTH EVERY NIGHT AT BEDTIME NEEDED 08/27/2018 09/04/2018 Inactive Keflex 500 mg capsule RxNorm: 833132 1 Capsule(s) PO TID 08/09/2018 1 10/19/2017 Inactive Diflucan 100 mg tablet RxNorm: 283454 1 Tablet(s) PO QD 08/09/2018 Inactive Premarin 1.25 mg tablet RxNorm: 491807 2 Tablet(s) PO QD 08/09/2018 0 05/04/2019 Inactive Zofran ODT 4 mg disintegrating tablet RxNorm: 514878 1 Tablet(s) PO Q4H as needed for nausea 08/09/2018 01/21/2019 Inactive metoprolol tartrate 100 mg tablet RxNorm: 874104 TAKE O NE TABLET BY MOUTH TWICE A DAY 2018 10/04/2018 Inactive doxepin 25 mg capsule RxNorm: 8654516 TAKE ONE CAPSULE B Y MOUTH EVERY NIGHT AT BEDTIME NEEDED 2018 08/26/2018 Inactive cyclobenzaprine 10 mg tablet RxNorm: 339819 TAKE ONE TA BLET BY MOUTH THREE TIMES A DAY NEEDED FOR MUSCLE SPASMS 2018 09/29/2018 Inactive hydrocodone 10 mg-acetaminophen 325 mg tablet RxNorm: 130711 1-2 Tablet(s) QID as needed for pain MUST LAST 30 DAYS 07/29/2018 08/27/2018 Inactive (Response to an electronic controlled substance refill request - RxReferenceNumber: [id number]) nystatin 100,000 unit/gram topical powder RxNorm: 836665 Applic ation TOP BID 07/22/2018 08/04/2018 Inactive doxepin 25 mg capsule RxNorm: 5497048 1 Capsule(s) PO QHS as needed 07/22/2018 08/05/2018 Inactive triamterene 75 mg-hydrochlorothiazide 50 mg tablet RxNorm: 3 25771 TAKE ONE TABLET BY MOUTH DAILY 07/05/2018 10/02/2018 Inactive duloxetine 60 mg capsule,delayed release RxNorm: 424464 TAKE ONE CAPSULE BY MOUTH DAILY 07/05/2018 09/02/2018 Inactive Klor-Con 8 mEq tablet,extended release RxNorm: 624247 T FARRUKH ONE TABLET BY MOUTH TWICE A DAY 07/05/2018 10/02/2018 Inactive Lipitor 10 mg tablet RxNorm: 199869 TAKE ONE TABLET BY MOUTH AT BEDTIME 07/05/2018 09/02/2018 Inactive allopurinol 300 mg tablet RxNorm: 358799 TAKE ONE TABLET BY LOPEZ TH DAILY 07/05/2018 10/02/2018 Inactive clonidine HCl 0.1 mg tablet RxNorm: 858102 TAKE ONE TAB LET BY MOUTH FOUR TIMES A DAY 07/05/2018 10/02/2018 Inactive hydrocodone 10 mg-acetaminophen 325 mg tablet RxNorm: 021739 1-2 Tablet(s) QID as needed for pain MUST LAST 30 DAYS 06/28/2018 07/27/2018 Inactive (Response to an electronic controlled substance refill request - RxReferenceNumber: [id number]) MediHoney (calcium alginate-honey) 4" X 5" bandage RxNorm: 1 Application TOP QD 06/17/2018 06/26/2018 Inactive honey-hydrocolloid dressing 4" X 5" RxNorm: 1 Application TOP QD 06/17/2018 07/16/2018 Inactive furosemide 40 mg tablet RxNorm: 479451 TAKE ONE TABLET BY MOUTH EVERY MORNING NEEDED FOR EDEMA . TAKE WITH POTASSIUM 06/10/2018 07/09/2018 Inactive This is a refill request. hydrocodone 10 mg-acetaminophen 325 mg tablet RxNorm: 391595 1-2 Tablet(s) QID as needed for pain MUST LAST 30 DAYS 05/30/2018 06/27/2018 Inactive (Response to an electronic controlled substance refill request - RxReferenceNumber: [id number]) acyclovir 800 mg tablet RxNorm: 486252 1 Tablet(s) PO 5x day 201705/22/2018 Inactive Premarin 1.25 mg tablet RxNorm: 994582 1-2 Tablet(s) PO QD 05/15/20 18 07/13/2018 Inactive cyclobenzaprine 10 mg tablet RxNorm: 181685 1 Tablet(s) PO TID as needed for muscle spasm 05/09/2018 05/08/2018 Inactive Medrol (Dustin) 4 mg tablets in a dose pack RxNorm: 474278 Tablet(s) PO As Directed 05/02/2018 06/16/2018 Inactive hydrocodone 10 mg-acetaminophen 325 mg tablet RxNorm: 316500 1-2 Tablet(s) QID as needed for pain MUST LAST 30 DAYS 04/30/2018 05/29/2018 Inactive (Response to an electronic controlled substance refill request - RxReferenceNumber: [id number]) duloxetine 60 mg capsule,delayed release RxNorm: 410705 TAKE ONE CAPSULE BY MOUTH DAILY 04/16/2018 05/15/2018 Inactive Celebrex 200 mg capsule RxNorm: 352054 TAKE ONE CAPSULE BY MOUT H TWICE A DAY 04/16/2018 06/14/2018 Inactive Singulair 10 mg tablet RxNorm: 382689 TAKE ONE TABLET BY MOUTH JOSÉ Y 04/16/2018 11/19/2018 Inactive Lipitor 10 mg tablet RxNorm: 511310 TAKE ONE TABLET BY MOUTH AT BEDTIME 04/16/2018 05/15/2018 Inactive hydrocodone 10 mg-acetaminophen 325 mg tablet RxNorm: 883359 1-2 Tablet(s) QID as needed for pain MUST LAST 30 DAYS 03/29/2018 04/27/2018 Inactive (Response to an electronic controlled substance refill request - RxReferenceNumber: [id number]) cyclobenzaprine 10 mg tablet RxNorm: 080032 1 Tablet(s) PO TID as needed for muscle spasm 03/18/2018 05/09/2018 Inactive omeprazole 40 mg capsule,delayed release RxNorm: 859094 1 Capsu le(s) PO QD 02/26/2018 08/24/2018 Inactive hydrocodone 10 mg-acetaminophen 325 mg tablet RxNorm: 571722 1-2 Tablet(s) QID as needed for pain MUST LAST 30 DAYS 02/26/2018 03/27/2018 Inactive (Response to an electronic controlled substance refill request - RxReferenceNumber: [id number]) metoprolol tartrate 100 mg tablet RxNorm: 671531 1 Tablet(s) PO BID 02/18/2018 08/05/2018 Inactive Lyrica 75 mg capsule RxNorm: 705045 1 Capsule(s) PO QHS 01/30/2018 Inactive phentermine 37.5 mg tablet RxNorm: 077692 1 Tablet(s) PO QAM 201706/16/2018 Inactive hydrocodone 10 mg-acetaminophen 325 mg tablet RxNorm: 045518 1-2 Tablet(s) QID as needed for pain MUST LAST 30 DAYS 01/29/2018 02/25/2018 Inactive (Response to an electronic controlled substance refill request - RxReferenceNumber: [id number]) Klor-Con 8 mEq tablet,extended release RxNorm: 893848 1 Tablet( s) PO BID 01/14/2018 07/04/2018 Inactive allopurinol 300 mg tablet RxNorm: 820533 1 Tablet(s) PO QD 01/15/2007/04/2018 Inactive Lipitor 10 mg tablet RxNorm: 574646 1 Tablet(s) PO QHS 01/14/201812/2017 Inactive triamterene 75 mg-hydrochlorothiazide 50 mg tablet RxNorm: 3 13722 1 Tablet(s) PO QD 01/14/2018 07/04/2018 Inactive hydrocodone 10 mg-acetaminophen 325 mg tablet RxNorm: 279324 1-2 Tablet(s) QID as needed for pain MUST LAST 30 DAYS 12/27/2017 01/25/2018 Inactive (Response to an electronic controlled substance refill request - RxReferenceNumber: [id number]) Onglyza 5 mg tablet RxNorm: 691990 1 Tablet(s) PO QD 12/18/201701/29 Inactive metformin 500 mg tablet RxNorm: 766833 1 Tablet(s) PO BID 12/11/2017 12/10/2017 Inactive metformin 500 mg tablet RxNorm: 667375 1 Tablet(s) PO BID 12/11/2017 12/17/2017 Inactive furosemide 40 mg tablet RxNorm: 100896 1 Tablet(s) PO Q AM prn edema--take with potassium 12/11/2017 06/08/2018 Inactive cyclobenzaprine 10 mg tablet RxNorm: 578932 1 Tablet(s) PO TID as needed for muscle spasm 12/11/2017 03/18/2018 Inactive hydrocodone 10 mg-acetaminophen 325 mg tablet RxNorm: 925146 1-2 Tablet(s) QID as needed for pain MUST LAST 30 DAYS 10/23/2017 11/21/2017 Inactive (Response to an electronic controlled substance refill request - RxReferenceNumber: [id number]) Lipitor 10 mg tablet RxNorm: 539393 1 Tablet(s) PO QHS 10/16/201703/2018 Inactive cyclobenzaprine 10 mg tablet RxNorm: 418807 1 Tablet(s) PO TID as needed for muscle spasm 10/09/2017 12/10/2017 Inactive hydroxyzine HCl 25 mg tablet RxNorm: 747244 1 Tablet(s) PO BID as needed for anxiety 09/20/2017 01/29/2018 Inactive Effexor XR 75 mg capsule,extended release RxNorm: 697567 1 Caps ule(s) PO QD 09/20/2017 01/29/2018 Inactive metoprolol tartrate 100 mg tablet RxNorm: 104533 1 Tablet(s) PO BID 08/20/2017 02/18/2018 Inactive baclofen 20 mg tablet RxNorm: 151613 1 Tablet(s) PO TID as needed for muscle spasm 08/20/2017 01/21/2019 Inactive clonidine HCl 0.1 mg tablet RxNorm: 256173 1 Tablet(s) PO QID 08/2005/16/2018 Inactive Seroquel 25 mg tablet RxNorm: 415241 1 Tablet(s) PO QHS 08/17/2017 Inactive Seroquel 25 mg tablet RxNorm: 199052 1 Tablet(s) PO QHS 08/17/2017 Inactive Diflucan 100 mg tablet RxNorm: 823648 TAKE ONE TABLET BY MOUTH JSOÉ Y 07/25/2017 08/07/2017 Inactive hydrocodone 10 mg-acetaminophen 325 mg tablet RxNorm: 251631 1-2 Tablet(s) QID as needed for pain MUST LAST 30 DAYS 07/19/2017 08/17/2017 Inactive (Response to an electronic controlled substance refill request - RxReferenceNumber: [id number]) clindamycin 300 mg capsule RxNorm: 790924 1 Capsule(s) PO TID 07/1907/28/2017 Inactive clotrimazole-betamethasone 1 %-0.05 % topical cream RxNorm: 594950 Application TOP BID to elbow rash 07/19/2017 06/16/2018 Inactive Singulair 10 mg tablet RxNorm: 580666 Tablet(s) TAKE ONE TABLET BY MOUTH DAILY 07/18/2017 04/13/2018 Inactive triamterene 75 mg-hydrochlorothiazide 50 mg tablet RxNorm: 3 91038 1 Tablet(s) PO QD 07/18/2017 01/14/2018 Inactive Celebrex 200 mg capsule RxNorm: 891638 Capsule(s) TAKE ONE CAPSULE BY MOUTH TWICE A DAY 07/18/2017 10/15/2017 Inactive hydrocodone 10 mg-acetaminophen 325 mg tablet RxNorm: 457930 1-2 Tablet(s) QID as needed for pain MUST LAST 30 DAYS 06/19/2017 07/18/2017 Inactive (Response to an electronic controlled substance refill request - RxReferenceNumber: [id number]) hydrocodone 10 mg-acetaminophen 325 mg tablet RxNorm: 246874 1-2 Tablet(s) QID as needed for pain MUST LAST 30 DAYS 06/19/2017 06/18/2017 Inactive (Response to an electronic controlled substance refill request - RxReferenceNumber: [id number]) baclofen 20 mg tablet RxNorm: 925409 1 Tablet(s) PO TID as needed for muscle spasm 06/18/2017 08/20/2017 Inactive Medrol (Dustin) 4 mg tablets in a dose pack RxNorm: 072327 Tablet(s) PO As Directed 06/05/2017 07/18/2017 Inactive omeprazole 40 mg capsule,delayed release RxNorm: 880946 1 Capsu le(s) PO QD 04/20/2017 10/16/2017 Inactive Premarin 1.25 mg tablet RxNorm: 330482 1-2 Tablet(s) PO QD 04/11/20 17 05/15/2018 Inactive duloxetine 60 mg capsule,delayed release RxNorm: 679662 1 Capsu le(s) PO QD 04/11/2017 09/19/2017 Inactive furosemide 40 mg tablet RxNorm: 081578 1 Tablet(s) PO Q AM prn edema--take with potassium 04/11/2017 12/11/2017 Inactive Klor-Con 8 mEq tablet,extended release RxNorm: 701626 1 Tablet( s) PO BID 04/11/2017 01/14/2018 Inactive Lipitor 10 mg tablet RxNorm: 601399 1 Tablet(s) PO QHS 04/11/201702/2018 Inactive amlodipine 5 mg-benazepril 20 mg capsule RxNorm: 491506 1 Capsu le(s) PO QD 04/11/2017 01/29/2018 Inactive allopurinol 300 mg tablet RxNorm: 137626 1 Tablet(s) PO QD 04/11/20 17 01/14/2018 Inactive clonidine HCl 0.1 mg tablet RxNorm: 710714 1 Tablet(s) PO QID 04/0508/19/2017 Inactive baclofen 20 mg tablet RxNorm: 688061 1 Tablet(s) PO TID as needed for muscle spasm 04/02/2017 06/18/2017 Inactive Premarin 1.25 mg tablet RxNorm: 093624 1-2 Tablet(s) PO QD 03/20/20 17 04/10/2017 Inactive hydrocodone 10 mg-acetaminophen 325 mg tablet RxNorm: 142203 1-2 Tablet(s) QID as needed for pain MUST LAST 30 DAYS 03/14/2017 01/21/2019 Inactive (Response to an electronic controlled substance refill request - RxReferenceNumber: [id number]) metoprolol tartrate 100 mg tablet RxNorm: 953057 1 Tablet(s) PO BID 02/12/2017 08/20/2017 Inactive hydrocodone 10 mg-acetaminophen 325 mg tablet RxNorm: 918727 1-2 Tablet(s) QID as needed for pain MUST LAST 30 DAYS 02/08/2017 03/09/2017 Inactive (Response to an electronic controlled substance refill request - RxReferenceNumber: [id number]) metoprolol tartrate 100 mg tablet RxNorm: 609004 TAKE O NE TABLET BY MOUTH TWICE A DAY 01/11/2017 02/12/2017 Inactive metoprolol tartrate 100 mg tablet RxNorm: 378126 1 Tablet(s) PO BID 12/18/2016 12/17/2016 Inactive metoprolol tartrate 100 mg tablet RxNorm: 868971 1 Tablet(s) PO BID 12/18/2016 01/10/2017 Inactive furosemide 40 mg tablet RxNorm: 989170 1 Tablet(s) PO Q AM prn edema--take with potassium 12/13/2016 02/10/2017 Inactive amitriptyline 100 mg tablet RxNorm: 672521 1 Tablet(s) PO QHS 11/2812/12/2016 Inactive baclofen 20 mg tablet RxNorm: 813537 1 Tablet(s) PO TID as needed for muscle spasm 11/14/2016 04/01/2017 Inactive triamterene 75 mg-hydrochlorothiazide 50 mg tablet RxNorm: 3 73893 1 Tablet(s) PO QD 11/14/2016 11/13/2016 Inactive metolazone 2.5 mg tablet RxNorm: 304367 TAKE ONE TABLET BY MOUTH DAILY NEEDED FOR EDEMA 11/14/2016 12/12/2016 Inactive triamterene 75 mg-hydrochlorothiazide 50 mg tablet RxNorm: 3 44269 1 Tablet(s) PO QD 11/14/2016 07/18/2017 Inactive amitriptyline 50 mg tablet RxNorm: 842687 TAKE ONE TABL ET BY MOUTH AT BEDTIME NEEDED FOR SLEEP 11/14/2016 11/27/2016 Inactive Cymbalta 60 mg capsule,delayed release RxNorm: 575260 1 Capsule (s) PO QHS 11/14/2016 12/12/2016 Inactive clonidine HCl 0.1 mg tablet RxNorm: 588551 1 Tablet(s) PO QID 11/1304/04/2017 Inactive amitriptyline 50 mg tablet RxNorm: 414314 1 Tablet(s) P O QHS as needed for sleep 11/01/2016 11/27/2016 Inactive duloxetine 60 mg capsule,delayed release RxNorm: 813041 TAKE ONE CAPSULE BY MOUTH DAILY 10/20/2016 01/17/2017 Inactive allopurinol 300 mg tablet RxNorm: 380400 TAKE ONE TABLET BY LOPEZ TH DAILY 10/20/2016 01/16/2017 Inactive Lyrica 75 mg capsule RxNorm: 794424 TAKE ONE CAPSULE BY MOUTH EVERY NIGHT AT BEDTIME 10/20/2016 12/10/2016 Inactive Klor-Con 8 mEq tablet,extended release RxNorm: 353846 T FARRUKH ONE TABLET BY MOUTH TWICE A DAY 10/20/2016 01/17/2017 Inactive Celebrex 200 mg capsule RxNorm: 652075 TAKE ONE CAPSULE BY MOUT H TWICE A DAY 10/20/2016 07/18/2017 Inactive Bystolic 10 mg tablet RxNorm: 556818 TAKE ONE TABLET BY MOUTH EVERY NIGHT AT BEDTIME 10/20/2016 12/17/2016 Inactive amlodipine 5 mg-benazepril 20 mg capsule RxNorm: 040876 TAKE ONE CAPSULE BY MOUTH EVERY NIGHT AT BEDTIME -- TO REPLACE AMLODOPINE 10/20/20162016 Inactive Lipitor 10 mg tablet RxNorm: 523453 TAKE ONE TABLET BY MOUTH EVERY NIGHT AT BEDTIME 10/20/2016 01/17/2017 Inactive alprazolam 0.5 mg tablet RxNorm: 780561 3 Tablet(s) PO QHS as needed for sleep/anxiety 09/20/2016 10/31/2016 Inactive Tamiflu 75 mg capsule RxNorm: 581301 1 Capsule(s) PO QD 09/19/2016 Inactive Lyrica 75 mg capsule RxNorm: 292435 1 Capsule(s) PO QHS 09/19/2016 Inactive prednisone 20 mg tablet RxNorm: 183261 1 Tablet(s) PO QD 08/10/2016 1 10/17/2015 Inactive doxycycline hyclate 100 mg capsule RxNorm: 9559037 1 Capsule(s) PO BID 08/10/2016 08/19/2016 Inactive Medrol (Dustin) 4 mg tablets in a dose pack RxNorm: 004026 Tablet(s) PO As Directed 07/31/2016 08/22/2016 Inactive Singulair 10 mg tablet RxNorm: 699937 TAKE ONE TABLET BY MOUTH JOSÉ Y 07/27/2016 07/18/2017 Inactive hydrocodone 10 mg-acetaminophen 325 mg tablet RxNorm: 441926 1-2 Tablet(s) QID as needed for pain MUST LAST 30 DAYS 07/26/2016 08/24/2016 Inactive (Response to an electronic controlled substance refill request - RxReferenceNumber: [id number]) alprazolam 0.5 mg tablet RxNorm: 760244 3 Tablet(s) PO QHS as needed for anxiety or sleep 07/26/2016 09/20/2016 Inactive clindamycin 300 mg capsule RxNorm: 609556 1 Capsule(s) PO TID 07/2007/29/2016 Inactive Diflucan 100 mg tablet RxNorm: 897871 1 Tablet(s) PO QD 07/20/2016 Inactive Levaquin 500 mg tablet RxNorm: 747813 1 Tablet(s) PO QD 07/17/2016 Inactive Levaquin 500 mg tablet RxNorm: 449329 1 Tablet(s) PO QD 07/10/2016 Inactive Levaquin 500 mg tablet RxNorm: 664026 1 Tablet(s) PO QD 07/10/2016 Inactive mupirocin 2 % topical ointment RxNorm: 605497 TOP Apply topically to affected areas twice daily 07/06/2016 09/18/2016 Inactive Singulair 10 mg tablet RxNorm: 194552 TAKE ONE TABLET BY MOUTH JOSÉ Y 06/21/2016 01/21/2019 Inactive alprazolam 0.5 mg tablet RxNorm: 433020 TAKE THREE TABL ETS BY MOUTH AT BEDTIME NEEDED FOR SLEEP OR STRESS 05/22/2016 06/20/2016 Inactive triamterene 75 mg-hydrochlorothiazide 50 mg tablet RxNorm: 3 02787 1 Tablet(s) PO QD 04/26/2016 10/21/2016 Inactive Premarin 1.25 mg tablet RxNorm: 528964 1-2 Tablet(s) PO QD 04/26/20 16 03/20/2017 Inactive Klor-Con 8 mEq tablet,extended release RxNorm: 306607 1 Tablet( s) PO BID 04/26/2016 10/19/2016 Inactive Celebrex 200 mg capsule RxNorm: 666260 1 Capsule(s) PO BID TAKE ONE CAPSULE BY MOUTH EVERY DAY 04/26/2016 10/19/2016 Inactive Lipitor 10 mg tablet RxNorm: 037395 1 Tablet(s) PO QHS 04/26/201605/2017 Inactive allopurinol 300 mg tablet RxNorm: 873685 1 Tablet(s) PO QD TAKE ONE TABLET BY MOUTH EVERY DAY 04/26/2016 10/19/2016 Inactive amlodipine 5 mg-benazepril 20 mg capsule RxNorm: 072768 1 Capsule(s) PO QHS replaces amlodopine 04/26/2016 10/19/2016 Inactive duloxetine 60 mg capsule,delayed release RxNorm: 777497 1 Capsu le(s) PO QD 04/26/2016 10/19/2016 Inactive Bystolic 10 mg tablet RxNorm: 194913 1 Tablet(s) PO QHS 04/26/2016 Inactive Singulair 10 mg tablet RxNorm: 736938 1 Tablet(s) PO QD TAKE ONE TABLET BY MOUTH DAILY 04/26/2016 06/20/2016 Inactive clonidine HCl 0.1 mg tablet RxNorm: 465466 1 Tablet(s) PO QID 04/2610/22/2016 Inactive hydrocodone 10 mg-acetaminophen 325 mg tablet RxNorm: 563219 1-2 Tablet(s) QID as needed for pain TAKE ONE TO TWO TABLETS BY MOUTH FOUR TIMES A DAY . MUST LAST 30 DAYS 03/31/2016 04/29/2016 Inactive (Response to an electronic controlled substance refill request - RxReferenceNumber: [id number]) Klor-Con 8 mEq tablet,extended release RxNorm: 158900 T FARRUKH ONE TABLET BY MOUTH TWICE A DAY 03/24/2016 09/29/2019 Inactive prednisone 20 mg tablet RxNorm: 560248 1 Tablet(s) PO QD 03/09/2016 0 03/08/2016 Inactive prednisone 20 mg tablet RxNorm: 757330 1 Tablet(s) PO QD 03/09/2016 0 03/13/2016 Inactive alprazolam 0.5 mg tablet RxNorm: 989659 3 Tablet(s) PO QHS as needed for sleep/stress 03/02/2016 01/21/2019 Inactive mupirocin 2 % topical ointment RxNorm: 443688 TOP twice daily to affected areas of face and neck 02/21/2016 04/25/2016 Inactive clonidine HCl 0.1 mg tablet RxNorm: 046012 TAKE ONE TAB LET BY MOUTH FOUR TIMES A DAY 02/15/2016 09/29/2019 Inactive clonidine HCl 0.1 mg tablet RxNorm: 817128 1 Tablet(s) PO QID 02/1404/25/2016 Inactive Premarin 1.25 mg tablet RxNorm: 208287 1-2 Tablet(s) PO QD 02/15/20 16 03/15/2016 Inactive Klor-Con 8 mEq tablet,extended release RxNorm: 773630 T FARRUKH ONE TABLET BY MOUTH TWICE A DAY 02/15/2016 03/15/2016 Inactive potassium chloride ER 20 mEq tablet,extended release(part/cr yst) RxNorm: 206540 2 Tablet(s) PO BID 02/15/2016 03/15/2016 Inactive Macrobid 100 mg capsule RxNorm: 820448 1 Capsule(s) PO BID 01/24/2001/30/2016 Inactive prednisone 20 mg tablet RxNorm: 009675 Take 3tabs PO QD x 2 days, then 2 tabs PO QD x 2 days, then 1 tab PO QD x 2 days, then 1/2 tab PO QDy x 2 days 12/23/2015 04/25/2016 Inactive Klor-Con 8 mEq tablet,extended release RxNorm: 949269 T FARURKH ONE TABLET BY MOUTH TWICE A DAY 12/20/2015 02/14/2016 Inactive alprazolam 1 mg tablet RxNorm: 707733 1 1/2 Tablet(s) PO QHS 201501/23/2016 Inactive nystatin 100,000 unit/gram topical cream RxNorm: 125426 APPLY TO AFFECTED AREA(S) TWO TIMES A DAY 11/30/2015 12/14/2015 Inactive Singulair 10 mg tablet RxNorm: 488420 TAKE ONE TABLET BY MOUTH JOSÉ Y 11/18/2015 04/25/2016 Inactive allopurinol 300 mg tablet RxNorm: 050426 1 Tablet(s) PO QD TAKE ONE TABLET BY MOUTH EVERY DAY 10/26/2015 04/22/2016 Inactive Singulair 10 mg tablet RxNorm: 157802 TAKE ONE TABLET BY MOUTH JOSÉ Y 10/26/2015 11/17/2015 Inactive duloxetine 60 mg capsule,delayed release RxNorm: 675842 1 Capsu le(s) PO QD 10/26/2015 04/22/2016 Inactive triamterene 75 mg-hydrochlorothiazide 50 mg tablet RxNorm: 3 98726 1 Tablet(s) PO QD 10/26/2015 11/14/2016 Inactive potassium chloride ER 20 mEq tablet,extended release(part/cr yst) RxNorm: 939027 2 Tablet(s) PO BID 10/26/2015 02/14/2016 Inactive Lipitor 10 mg tablet RxNorm: 151388 1 Tablet(s) PO QHS 10/26/2015 Inactive amlodipine 5 mg-benazepril 20 mg capsule RxNorm: 806868 1 Capsule(s) PO QHS replaces amlodopine 10/26/2015 04/22/2016 Inactive Bystolic 10 mg tablet RxNorm: 771975 1 Tablet(s) PO QHS 10/26/2015 Inactive amlodipine 5 mg-benazepril 20 mg capsule RxNorm: 875841 1 Capsule(s) PO QHS replaces amlodopine 10/06/2015 10/25/2015 Inactive amlodipine 5 mg tablet RxNorm: 431955 1 Tablet(s) PO QHS 09/30/2015 0 04/25/2016 Inactive metolazone 2.5 mg tablet RxNorm: 505234 TAKE ONE TABLET BY MOUTH DAILY NEEDED FOR EDEMA 09/30/2015 01/21/2019 Inactive duloxetine 60 mg capsule,delayed release RxNorm: 571430 1 Capsu le(s) PO QD 09/30/2015 10/25/2015 Inactive cephalexin 500 mg capsule RxNorm: 312143 1 Capsule(s) PO BID 201509/23/2015 Inactive mupirocin 2 % topical ointment RxNorm: 117543 TOP twice daily to affected areas of face and neck 09/14/2015 02/20/2016 Inactive baclofen 20 mg tablet RxNorm: 580675 1 Tablet(s) PO TID as needed for muscle spasm 09/01/2015 11/14/2016 Inactive clonidine HCl 0.1 mg tablet RxNorm: 325261 1 Tablet(s) PO QID 09/0102/14/2016 Inactive alprazolam 1 mg tablet RxNorm: 490645 1 1/2 Tablet(s) PO QHS 201409/09/2015 Inactive baclofen 20 mg tablet RxNorm: 993887 1 Tablet(s) PO TID as needed for muscle spasm 07/23/2015 09/01/2015 Inactive omeprazole 40 mg capsule,delayed release RxNorm: 250226 1 Capsu le(s) PO QD 07/23/2015 04/25/2016 Inactive alprazolam 1 mg tablet RxNorm: 948166 1 1/2 Tablet(s) PO QHS 201408/10/2015 Inactive Bystolic 10 mg tablet RxNorm: 183933 1 Tablet(s) PO BID 06/24/2015 Inactive allopurinol 300 mg tablet RxNorm: 163524 1 Tablet(s) PO QD TAKE ONE TABLET BY MOUTH EVERY DAY 06/23/2015 10/20/2015 Inactive alprazolam 1 mg tablet RxNorm: 886267 1 1/2 Tablet(s) PO QHS 201407/06/2015 Inactive clonidine HCl 0.1 mg tablet RxNorm: 191809 1 Tablet(s) PO QID 06/0209/01/2015 Inactive clonidine HCl 0.1 mg tablet RxNorm: 803332 1 Tablet(s) PO QID 06/0206/01/2015 Inactive Cymbalta 60 mg capsule,delayed release RxNorm: 375419 1 Capsule (s) PO QHS 06/02/2015 08/30/2015 Inactive Cymbalta 60 mg capsule,delayed release RxNorm: 119877 1 Capsule (s) PO QHS 06/02/2015 06/01/2015 Inactive clonidine HCl 0.1 mg tablet RxNorm: 463284 1 Tablet(s) PO TID 05/3106/01/2015 Inactive replaces 0.2mg dose metolazone 2.5 mg tablet RxNorm: 583578 TAKE ONE TABLET BY MOUTH DAILY NEEDED FOR EDEMA 05/21/2015 06/19/2015 Inactive Singulair 10 mg tablet RxNorm: 346503 TAKE ONE TABLET BY MOUTH JOSÉ Y 05/21/2015 10/17/2015 Inactive Cymbalta 30 mg capsule,delayed release RxNorm: 451762 1 Capsule (s) PO QHS 05/20/2015 11/14/2016 Inactive betamethasone valerate 0.1 % topical cream RxNorm: 726201 Appli cation TOP BID 05/10/2015 04/25/2016 Inactive Bactroban 2 % topical ointment RxNorm: 908519 Application TOP BID 0 05/10/2015 06/20/2015 Inactive baclofen 20 mg tablet RxNorm: 352293 1 Tablet(s) PO TID as needed 0 04/26/2015 07/23/2015 Inactive Lipitor 10 mg tablet RxNorm: 422953 1 Tablet(s) PO QHS 04/26/201508/2016 Inactive clonidine HCl 0.1 mg tablet RxNorm: 877939 1 Tablet(s) PO TID 04/2605/30/2015 Inactive replaces 0.2mg dose Klor-Con 8 mEq tablet,extended release RxNorm: 015188 1 Tablet( s) PO BID 04/26/2015 04/25/2016 Inactive metolazone 2.5 mg tablet RxNorm: 753472 1 Tablet(s) PO QD as ne eded for edema 04/26/2015 04/25/2015 Inactive triamterene 75 mg-hydrochlorothiazide 50 mg tablet RxNorm: 3 44205 1 Tablet(s) PO QD 04/26/2015 10/22/2015 Inactive Premarin 1.25 mg tablet RxNorm: 673012 1-2 Tablet(s) PO QD 04/26/20 15 10/22/2015 Inactive Bystolic 10 mg tablet RxNorm: 371923 1 Tablet(s) PO QAM TAKE ONE TABLET BY MOUTH EVERY MORNING 04/23/2015 06/23/2015 Inactive clonidine HCl 0.1 mg tablet RxNorm: 065885 1 Tablet(s) PO TID 03/2304/25/2015 Inactive replaces 0.2mg dose nystatin 100,000 unit/gram topical cream RxNorm: 395637 Applica tion TOP BID 03/23/2015 06/20/2015 Inactive baclofen 20 mg tablet RxNorm: 828205 1 Tablet(s) PO TID as needed 0 03/23/2015 04/25/2015 Inactive Premarin 1.25 mg tablet RxNorm: 936550 1-2 Tablet(s) PO QD 03/23/20 15 04/25/2015 Inactive Klor-Con 8 mEq tablet,extended release RxNorm: 358156 1 Tablet( s) PO BID 03/23/2015 04/25/2015 Inactive cefdinir 300 mg capsule RxNorm: 619761 2 Capsule(s) PO QD 03/16/2015 03/25/2015 Inactive baclofen 20 mg tablet RxNorm: 845922 1 Tablet(s) PO TID as needed 0 03/02/2015 03/22/2015 Inactive allopurinol 300 mg tablet RxNorm: 476320 1 Tablet(s) PO QD TAKE ONE TABLET BY MOUTH EVERY DAY 02/22/2015 05/22/2015 Inactive Klor-Con M20 mEq tablet,extended release RxNorm: 894857 2 Tablet(s) PO BID to use with lasix 02/22/2015 06/20/2015 Inactive clonidine HCl 0.1 mg tablet RxNorm: 111949 1 Tablet(s) PO TID 02/1903/22/2015 Inactive replaces 0.2mg dose Lipitor 10 mg tablet RxNorm: 815952 1 Tablet(s) PO QHS 01/20/201506/2015 Inactive Lipitor 10 mg tablet RxNorm: 243198 1 Tablet(s) PO QHS 01/20/2015 Inactive Singulair 10 mg tablet RxNorm: 358309 1 Tablet(s) PO QD TAKE ONE TABLET BY MOUTH EVERY DAY 11/20/2014 05/18/2015 Inactive Lipitor 10 mg tablet RxNorm: 097082 1 Tablet(s) PO QHS 11/20/201408/2015 Inactive allopurinol 300 mg tablet RxNorm: 223746 1 Tablet(s) PO QD TAKE ONE TABLET BY MOUTH EVERY DAY 11/20/2014 02/16/2015 Inactive Bystolic 10 mg tablet RxNorm: 731576 1 Tablet(s) PO QAM TAKE ONE TABLET BY MOUTH EVERY MORNING 11/20/2014 04/22/2015 Inactive Klor-Con 8 mEq tablet,extended release RxNorm: 190905 1 Tablet( s) PO BID 11/20/2014 02/17/2015 Inactive baclofen 20 mg tablet RxNorm: 594837 1 Tablet(s) PO TID as needed 0 11/20/2014 01/21/2019 Inactive baclofen 20 mg tablet RxNorm: 869289 1 Tablet(s) PO TID as needed 0 10/27/2014 11/19/2014 Inactive baclofen 20 mg tablet RxNorm: 973490 1 Tablet(s) PO TID as needed 0 10/26/2014 03/01/2015 Inactive allopurinol 300 mg tablet RxNorm: 299193 1 Tablet(s) PO QD TAKE ONE TABLET BY MOUTH EVERY DAY 10/26/2014 11/20/2014 Inactive Bystolic 10 mg tablet RxNorm: 475338 1 Tablet(s) PO QAM TAKE ONE TABLET BY MOUTH EVERY MORNING 10/26/2014 11/20/2014 Inactive clonidine HCl 0.1 mg tablet RxNorm: 320471 1 Tablet(s) PO TID 09/2805/27/2019 Inactive replaces 0.2mg dose clonidine HCl 0.1 mg tablet RxNorm: 092308 1 Tablet(s) PO TID 09/2802/18/2015 Inactive replaces 0.2mg dose baclofen 20 mg tablet RxNorm: 995839 1 Tablet(s) PO TID as needed 1 11/01/2013 08/30/2014 Inactive Lipitor 10 mg tablet RxNorm: 109601 1 Tablet(s) PO QHS 08/31/2014 Inactive baclofen 20 mg tablet RxNorm: 076128 1 Tablet(s) PO TID as needed 1 11/01/2013 10/26/2014 Inactive triamterene 75 mg-hydrochlorothiazide 50 mg tablet RxNorm: 3 32038 1 Tablet(s) PO QD 08/31/2014 02/26/2015 Inactive Klor-Con 8 mEq tablet,extended release RxNorm: 444444 1 Tablet( s) PO BID 08/31/2014 11/20/2014 Inactive baclofen 20 mg tablet RxNorm: 869986 1 Tablet(s) PO TID as needed 1 09/30/2013 10/25/2014 Inactive baclofen 20 mg tablet RxNorm: 796847 1 Tablet(s) PO TID as needed 1 09/30/2013 08/31/2014 Inactive omeprazole 40 mg capsule,delayed release RxNorm: 712497 1 Capsu le(s) PO QD 07/21/2014 07/23/2015 Inactive Flonase 50 mcg/actuation nasal spray,suspension RxNorm: 8963 23 1 [place] NASAL BID 07/15/2014 04/09/2017 Inactive hydrocodone 10 mg-acetaminophen 325 mg tablet RxNorm: 246214 1-2 Tablet(s) QID as needed for pain TAKE ONE TO TWO TABLETS BY MOUTH FOUR TIMES A DAY . MUST LAST 30 DAYS 06/30/2014 07/27/2014 Inactive (Response to an electronic controlled substance refill request - RxReferenceNumber: [id number]) baclofen 20 mg tablet RxNorm: 994791 1 Tablet(s) PO TID as needed 1 07/31/2014 Inactive Singulair 10 mg tablet RxNorm: 598330 1 Tablet(s) PO QD TAKE ONE TABLET BY MOUTH EVERY DAY 05/25/2014 11/20/2014 Inactive Bystolic 10 mg tablet RxNorm: 482808 TAKE ONE TABLET BY MOUTH E VERY MORNING 05/25/2014 09/21/2014 Inactive allopurinol 300 mg tablet RxNorm: 348028 1 Tablet(s) PO QD TAKE ONE TABLET BY MOUTH EVERY DAY 05/25/2014 10/21/2014 Inactive baclofen 20 mg tablet RxNorm: 216209 1 Tablet(s) PO TID as needed 0 05/25/2014 06/29/2014 Inactive allopurinol 300 mg tablet RxNorm: 287850 TAKE ONE TABLET BY LOPEZ TH EVERY DAY 05/25/2014 09/21/2014 Inactive Singulair 10 mg tablet RxNorm: 970812 1 Tablet(s) PO QD TAKE ONE TABLET BY MOUTH EVERY DAY 05/25/2014 05/24/2014 Inactive Bystolic 10 mg tablet RxNorm: 963684 1 Tablet(s) PO QAM TAKE ONE TABLET BY MOUTH EVERY MORNING 05/25/2014 10/21/2014 Inactive metolazone 2.5 mg tablet RxNorm: 801203 1 Tablet(s) PO QD as ne eded for edema 05/18/2014 04/25/2015 Inactive Lasix 40 mg tablet RxNorm: 887644 1 Tablet(s) PO QAM s hould take potassium supplementation with this medication 05/14/2014 05/17/2014 Inactive hydrocodone 10 mg-acetaminophen 325 mg tablet RxNorm: 305914 1-2 Tablet(s) QID as needed for pain TAKE ONE TO TWO TABLETS BY MOUTH FOUR TIMES A DAY . MUST LAST 30 DAYS 05/07/2014 06/05/2014 Inactive (Response to an electronic controlled substance refill request - RxReferenceNumber: [id number]) alprazolam 0.5 mg tablet RxNorm: 013227 TAKE ONE TABLET BY MOUTH TWICE A DAY , MUST LAST 30 DAYS 05/07/2014 05/22/2016 Inactive (Response to a n electronic controlled substance refill request - RxReferenceNumber: [id number]) diclofenac sodium 75 mg tablet,delayed release RxNorm: 87109 6 1 Tablet(s) PO BID for pain 04/24/2014 07/20/2014 Inactive Celebrex 200 mg capsule RxNorm: 592765 TAKE ONE CAPSULE BY MOUT H EVERY DAY 04/24/2014 07/20/2014 Inactive alprazolam 0.5 mg tablet RxNorm: 912242 TAKE ONE TABLET BY MOUTH TWICE A DAY , MUST LAST 30 DAYS 03/24/2014 04/22/2014 Inactive (Response to a n electronic controlled substance refill request - RxReferenceNumber: [id number]) diclofenac sodium 75 mg tablet,delayed release RxNorm: 13702 6 1 Tablet(s) PO BID for pain 03/24/2014 04/24/2014 Inactive clonidine HCl 0.1 mg tablet RxNorm: 422729 1 Tablet(s) PO TID 03/2409/28/2014 Inactive replaces 0.2mg dose Klor-Con 8 mEq tablet,extended release RxNorm: 006747 1 Tablet( s) PO BID 02/26/2014 08/31/2014 Inactive diclofenac sodium 75 mg tablet,delayed release RxNorm: 00916 6 1 Tablet(s) PO BID for pain 02/25/2014 03/24/2014 Inactive hydrocodone 10 mg-acetaminophen 325 mg tablet RxNorm: 509201 1-2 Tablet(s) QID as needed for pain TAKE ONE TO TWO TABLETS BY MOUTH FOUR TIMES A DAY . MUST LAST 30 DAYS 02/25/2014 03/26/2014 Inactive (Response to an electronic controlled substance refill request - RxReferenceNumber: [id number]) alprazolam 0.5 mg tablet RxNorm: 713425 Tablet(s) PO BI D as needed for anxiety TAKE ONE TABLET BY MOUTH TWICE A DAY , MUST LAST 30 DAYS 02/25/2014 Inactive (Response to an electronic controlled [place] bstance refill request - RxReferenceNumber: [id number]) [AttnRPh: Saving apply/adjudicate RxGRP:SG20 RxBIN:[id number] RxPCN: ID#:[id number]] alprazolam 0.5 mg tablet RxNorm: 749668 Tablet(s) TAKE ONE TABLET BY MOUTH TWICE A DAY , MUST LAST 30 DAYS 01/27/2014 02/24/2014 Inactive (Respo nse to an electronic controlled substance refill request - RxReferenceNumber: [id number]) [AttnRPh: Saving apply/adjudicate RxGRP:SG20 RxBIN:[id number] RxPCN: ID#:[id number]] hydrocodone 10 mg-acetaminophen 325 mg tablet RxNorm: 304824 1-2 Tablet(s) QID as needed for pain TAKE ONE TO TWO TABLETS BY MOUTH FOUR TIMES A DAY . MUST LAST 30 DAYS 01/27/2014 02/24/2014 Inactive (Response to an electronic controlled substance refill request - RxReferenceNumber: [id number]) alprazolam 0.5 mg tablet RxNorm: 531229 TAKE ONE TABLET BY MOUTH TWICE A DAY , MUST LAST 30 DAYS 01/27/2014 01/26/2014 Inactive (Response to a n electronic controlled substance refill request - RxReferenceNumber: [id number]) Premarin 1.25 mg tablet RxNorm: 493330 1-2 Tablet(s) PO QD 01/28/20 14 07/25/2014 Inactive alprazolam 0.5 mg tablet RxNorm: 755556 TAKE ONE TABLET BY MOUTH TWICE A DAY , MUST LAST 30 DAYS 01/27/2014 01/27/2014 Inactive (Response to a n electronic controlled substance refill request - RxReferenceNumber: [id number]) hydrocodone 10 mg-acetaminophen 325 mg tablet RxNorm: 728607 TAKE ONE TO TWO TABLETS BY MOUTH FOUR TIMES A DAY . MUST LAST 30 DAYS 01/27/20142013 Inactive (Response to an electronic controlled [place] bstance refill request - RxReferenceNumber: [id number]) Celebrex 200 mg capsule RxNorm: 406489 1 Capsule(s) PO QD TAKE ONE CAPSULE BY MOUTH EVERY DAY 12/29/2013 04/27/2014 Inactive hydrocodone 10 mg-acetaminophen 325 mg tablet RxNorm: 539151 1-2 Tablet(s) PO QID as needed for severe pain 12/29/2013 01/27/2014 Inactive allopurinol 300 mg tablet RxNorm: 268862 1 Tablet(s) PO QD TAKE ONE TABLET BY MOUTH EVERY DAY 12/29/2013 05/24/2014 Inactive alprazolam 0.5 mg tablet RxNorm: 594613 TAKE ONE TABLET BY MOUTH TWICE A DAY , MUST LAST 30 DAYS 12/29/2013 01/27/2014 Inactive (Response to a n electronic controlled substance refill request - RxReferenceNumber: [id number]) Celebrex 200 mg capsule RxNorm: 851149 1 Capsule(s) PO QD TAKE ONE CAPSULE BY MOUTH EVERY DAY 12/29/2013 12/29/2013 Inactive Bystolic 10 mg tablet RxNorm: 621675 1 Tablet(s) PO QAM TAKE ONE TABLET BY MOUTH EVERY MORNING 12/29/2013 05/24/2014 Inactive Bystolic 10 mg tablet RxNorm: 798597 1 Tablet(s) PO QAM TAKE ONE TABLET BY MOUTH EVERY MORNING 12/29/2013 12/29/2013 Inactive Singulair 10 mg tablet RxNorm: 220417 1 Tablet(s) PO QD TAKE ONE TABLET BY MOUTH EVERY DAY 12/29/2013 05/25/2014 Inactive hydrocodone 10 mg-acetaminophen 325 mg tablet RxNorm: 558825 TAKE ONE TO TWO TABLETS BY MOUTH FOUR TIMES A DAY . MUST LAST 30 DAYS 12/29/20132013 Inactive (Response to an electronic controlled [place] bstance refill request - RxReferenceNumber: [id number]) Trazadone 75mg Tablet RxNorm: 1 Tablet(s) PO QHS as needed 03/23/2014 Inactive Trazadone 75mg Tablet RxNorm: 1 Tablet(s) PO QHS 12/24/20132014 Inactive Soma 350 mg tablet RxNorm: 353358 Tablet(s) PO TAKE ON E TABLET BY MOUTH THREE TIMES A DAY NEEDED FOR MUSCLE SPASMS. THIS MUST LAST 30 DAYS BETWEEN REFILLS. 12/10/2013 12/22/2013 Inactive (Appended: Cont rolled substance eRx refill - RxReferenceNumber: [id number]) diclofenac sodium 75 mg tablet,delayed release RxNorm: 26903 6 1 Tablet(s) PO BID for pain 12/10/2013 02/24/2014 Inactive allopurinol 300 mg tablet RxNorm: 853568 1 Tablet(s) PO QD 11/20/19 14 12/29/2013 Inactive alprazolam 0.5 mg tablet RxNorm: 794504 2 Tablet(s) PO BID 11/13/19 14 12/29/2013 Inactive prn clonidine 0.1 mg tablet RxNorm: 878288 1 Tablet(s) PO TID 11/12/2013 02/09/2014 Inactive replaces 0.2mg dose Klor-Con M20 mEq tablet,extended release RxNorm: 134186 2 Tablet(s) PO BID to use with lasix 11/12/2013 05/10/2014 Inactive Singulair 10 mg tablet RxNorm: 363417 1 Tablet(s) PO QD 11/12/2013 Inactive hydrocodone 10 mg-acetaminophen 325 mg tablet RxNorm: 395012 1-2 Tablet(s) PO QID as needed for severe pain 11/12/2013 12/28/2013 Inactive Bystolic 10 mg tablet RxNorm: 255913 1 Tablet(s) PO QAM 11/12/2013 Inactive Soma 350 mg tablet RxNorm: 577888 Tablet(s) PO TAKE ON E TABLET BY MOUTH THREE TIMES A DAY NEEDED FOR MUSCLE SPASMS. THIS MUST LAST 30 DAYS BETWEEN REFILLS. 10/13/2013 12/10/2013 Inactive (Appended: Cont rolled substance eRx refill - RxReferenceNumber: [id number]) hydrocodone 10 mg-acetaminophen 325 mg tablet RxNorm: 793615 1-2 Tablet(s) PO QID as needed for severe pain 10/03/2013 11/11/2013 Inactive diclofenac sodium 75 mg tablet,delayed release RxNorm: 29355 8 1 Tablet(s) PO BID for pain 09/11/2013 12/10/2013 Inactive alprazolam 0.5 mg tablet RxNorm: 549948 1 Tablet(s) PO BID May refill on 04/26/13 09/01/2013 10/30/2013 Inactive prn hydrocodone 10 mg-acetaminophen 325 mg tablet RxNorm: 598822 1-2 Tablet(s) PO QID as needed for severe pain 09/01/2013 10/02/2013 Inactive triamterene 75 mg-hydrochlorothiazide 50 mg tablet RxNorm: 3 40801 1 Tablet(s) PO QD 08/04/2013 08/31/2014 Inactive cyclobenzaprine 10 mg tablet RxNorm: 755675 1 Tablet(s) PO TID prn spasm 08/04/2013 08/13/2013 Inactive clonidine 0.1 mg tablet RxNorm: 628799 1 Tablet(s) PO TID 08/04/2013 11/11/2013 Inactive replaces 0.2mg dose cyclobenzaprine 10 mg tablet RxNorm: 448326 1 Tablet(s) PO TID prn spasm 07/23/2013 08/01/2013 Inactive hydrocodone 10 mg-acetaminophen 325 mg tablet RxNorm: 792553 2 1-2 Tablet(s) PO QID as needed for severe pain 06/09/2013 08/07/2013 Inactive Singulair 10 mg tablet RxNorm: 667700 1 Tablet(s) PO QD 05/29/2013 Inactive Klor-Con 8 mEq tablet,extended release RxNorm: 150953 1 Tablet( s) PO BID 05/29/2013 02/26/2014 Inactive allopurinol 300 mg tablet RxNorm: 744832 1 Tablet(s) PO QD 05/29/20 13 11/19/2013 Inactive Bystolic 10 mg tablet RxNorm: 651927 1 Tablet(s) PO QAM take one daily in the morning. 05/29/2013 11/11/2013 Inactive scopolamine 1.5 mg 72 hr Transderm Patch RxNorm: 075426 Application TD Q72H for motion sickness 05/26/2013 07/22/2013 Inactive Soma 350 mg tablet RxNorm: 458042 1 Tablet(s) PO TID as needed for spasm 05/19/2013 10/13/2013 Inactive diclofenac sodium 75 mg tablet,delayed release RxNorm: 61613 8 1 Tablet(s) PO BID for pain 05/14/2013 07/22/2013 Inactive allopurinol 300 mg tablet RxNorm: 057075 1 Tablet(s) PO QD 04/25/20 13 05/28/2013 Inactive alprazolam 0.5 mg tablet RxNorm: 556705 1 Tablet(s) PO BID May refill on 04/26/13 04/25/2013 06/23/2013 Inactive prn Celebrex 200 mg capsule RxNorm: 703206 1 Capsule(s) PO QD 04/16/2013 12/29/2013 Inactive alprazolam 0.5 mg tablet RxNorm: 336685 1 Tablet(s) PO BID May refill on 04/26/13 04/16/2013 04/24/2013 Inactive prn Soma 350 mg tablet RxNorm: 603853 1 Tablet(s) PO TID as needed for spasm 04/16/2013 No Stop Date Active Lasix 40 mg tablet RxNorm: 313846 1 Tablet(s) PO QAM s hould take potassium supplementation with this medication 04/16/2013 06/14/2013 Inactive clonidine 0.1 mg tablet RxNorm: 921514 1 Tablet(s) PO TID 04/16/2013 08/03/2013 Inactive replaces 0.2mg dose prednisone 20 mg tablet RxNorm: 814435 1 Tablet(s) PO BID 04/16/2013 04/20/2013 Inactive diclofenac sodium 75 mg tablet,delayed release RxNorm: 30966 8 1 Tablet(s) PO BID for pain 04/14/2013 05/13/2013 Inactive hydrocodone 10 mg-acetaminophen 325 mg tablet RxNorm: 702696 2 1-2 Tablet(s) PO QID as needed for severe pain 04/14/2013 No Stop Date Active Lasix 40 mg tablet RxNorm: 246264 1 Tablet(s) PO QAM s hould take potassium supplementation with this medication 03/31/2013 04/15/2013 Inactive Celebrex 200 mg capsule RxNorm: 337143 1 Capsule(s) PO QD 03/31/2013 04/15/2013 Inactive alprazolam 0.5 mg tablet RxNorm: 189774 1 Tablet(s) PO BID 03/28/20 13 04/15/2013 Inactive prn hydrocodone 10 mg-acetaminophen 325 mg tablet RxNorm: 040504 2 1-2 Tablet(s) PO QID as needed for severe pain 03/10/2013 No Stop Date Active metformin ER 500 mg 24 hr tablet,extended release RxNorm: 86 1018 1 Tablet(s) PO QD 03/06/2013 07/22/2013 Inactive clindamycin 300 mg capsule RxNorm: 835771 2 Capsule(s) PO TID 03/0503/14/2013 Inactive Zaroxolyn 2.5 mg tablet RxNorm: 613847 1 Tablet(s) PO QAM 03/05/2013 05/19/2015 Inactive amlodipine 10 mg tablet RxNorm: 483354 1 Tablet(s) PO QD 03/03/2013 0 05/25/2013 Inactive Norvasc 10 mg tablet RxNorm: 896894 1 Tablet(s) PO QD 02/28/201307/11 Inactive Celebrex 200 mg capsule RxNorm: 871483 1 Capsule(s) PO QD 02/28/2013 03/30/2013 Inactive diclofenac sodium 75 mg tablet,delayed release RxNorm: 16339 8 1 Tablet(s) PO BID for pain 02/14/2013 03/15/2013 Inactive Soma 350 mg tablet RxNorm: 792480 1 Tablet(s) PO TID as needed for spasm 02/14/2013 No Stop Date Active hydrocodone 10 mg-acetaminophen 325 mg tablet RxNorm: 464497 2 1-2 Tablet(s) PO QID as needed for severe pain 02/14/2013 No Stop Date Active Norvasc 10 mg tablet RxNorm: 275022 1 Tablet(s) PO QD 02/10/201302/09 Inactive Celebrex 200 mg capsule RxNorm: 707782 1 Capsule(s) PO QD 01/27/2013 01/26/2013 Inactive Premarin 1.25 mg tablet RxNorm: 422890 1-2 Tablet(s) PO QD 01/28/20 13 06/25/2013 Inactive alprazolam 0.5 mg tablet RxNorm: 899259 1 Tablet(s) PO BID 01/28/20 13 02/25/2013 Inactive prn amlodipine 5 mg tablet RxNorm: 582187 1 Tablet(s) PO QD 01/27/2013 Inactive Celebrex 200 mg capsule RxNorm: 369624 1 Capsule(s) PO QD 01/27/2013 02/27/2013 Inactive gabapentin 600 mg tablet RxNorm: 286242 1 Tablet(s) PO QHS 01/16/20 13 07/22/2013 Inactive Soma 350 mg tablet RxNorm: 655874 1 Tablet(s) PO TID as needed for spasm 01/15/2013 No Stop Date Active hydrocodone 10 mg-acetaminophen 325 mg tablet RxNorm: 817043 2 1-2 Tablet(s) PO QID as needed for severe pain 01/15/2013 No Stop Date Active Soma 350 mg tablet RxNorm: 565807 1 Tablet(s) PO TID as needed for spasm 01/13/2013 No Stop Date Active alprazolam 0.5 mg tablet RxNorm: 419242 1 Tablet(s) PO BID 12/31/19 13 01/26/2013 Inactive prn diclofenac sodium 75 mg tablet,delayed release RxNorm: 73816 8 1 Tablet(s) PO BID for pain 12/09/2012 01/07/2013 Inactive gabapentin 600 mg tablet RxNorm: 396277 1 Tablet(s) PO QHS 12/10/19 13 01/07/2013 Inactive hydrocodone 10 mg-acetaminophen 325 mg tablet RxNorm: 962752 2 1-2 Tablet(s) PO QID as needed for severe pain 12/02/2012 No Stop Date Active Levaquin 750 mg tablet RxNorm: 032180 1 Tablet(s) PO QD 11/21/2012 Inactive Singulair 10 mg tablet RxNorm: 085452 1 Tablet(s) PO QD 11/11/2012 Inactive clonidine 0.2 mg tablet RxNorm: 741248 1 Tablet(s) PO TID 11/11/2012 04/15/2013 Inactive alprazolam 0.5 mg tablet RxNorm: 372692 1 Tablet(s) PO BID 11/12/19 13 12/10/2012 Inactive prn Klor-Con 8 mEq tablet,extended release RxNorm: 681697 1 Tablet( s) PO BID 11/11/2012 03/04/2013 Inactive hydrocodone 10 mg-acetaminophen 325 mg tablet RxNorm: 441625 2 1-2 Tablet(s) PO QID as needed for severe pain 11/06/2012 No Stop Date Active alprazolam 0.5 mg tablet RxNorm: 163483 1 Tablet(s) PO BID 10/15/19 13 11/10/2012 Inactive prn hydrocodone-acetaminophen 10 mg-325 mg tablet RxNorm: 594854 2 1-2 Tablet(s) PO QID as needed for severe pain 10/10/2012 10/09/2012 Inactive allopurinol 300 mg tablet RxNorm: 059299 1 Tablet(s) PO QD 09/20/19 13 12/18/2012 Inactive alprazolam 0.5 mg tablet RxNorm: 095923 1 Tablet(s) PO BID 09/17/19 13 10/14/2012 Inactive prn hydrocodone-acetaminophen 10 mg-325 mg tablet RxNorm: 440779 2 1-2 Tablet(s) PO QID as needed for severe pain 08/22/2012 08/21/2012 Inactive Norvasc 10 mg tablet RxNorm: 586474 1 Tablet(s) PO QD 08/12/201201/10 Inactive Premarin 1.25 mg tablet RxNorm: 558285 1-2 Tablet(s) PO QD 07/30/20 12 12/26/2012 Inactive alprazolam 0.5 mg tablet RxNorm: 964599 1 Tablet(s) PO BID 07/29/20 12 08/27/2012 Inactive prn Klor-Con 8 mEq tablet,extended release RxNorm: 410391 1 Tablet( s) PO BID 07/29/2012 11/10/2012 Inactive hydrocodone-acetaminophen 10 mg-325 mg tablet RxNorm: 705028 2 1-2 Tablet(s) PO QID as needed for severe pain 07/29/2012 No Stop Date Active Premarin 1.25 mg tablet RxNorm: 782554 1-2 Tablet(s) PO QD 07/29/20 12 07/29/2012 Inactive clonidine 0.2 mg tablet RxNorm: 788668 1 Tablet(s) PO TID 07/29/2012 10/28/2012 Inactive ketorolac 10 mg tablet RxNorm: 406596 1 Tablet(s) PO QID prn he adache 07/18/2012 No Stop Date Active hydrocodone-acetaminophen 10 mg-325 mg tablet RxNorm: 789840 2 1-2 Tablet(s) PO QID as needed for severe pain 07/03/2012 No Stop Date Active amlodipine 5 mg tablet RxNorm: 723038 1 Tablet(s) PO QD 07/02/2012 Inactive allopurinol 300 mg tablet RxNorm: 114315 1 Tablet(s) PO QD 07/02/20 12 09/19/2012 Inactive Celebrex 200 mg capsule RxNorm: 894462 1 Capsule(s) PO QD for j oint pain 06/26/2012 10/23/2012 Inactive diclofenac sodium 75 mg tablet,delayed release RxNorm: 30249 8 1 Tablet(s) PO BID for pain 06/19/2012 09/16/2012 Inactive hydrocodone-acetaminophen 10 mg-325 mg tablet RxNorm: 372025 2 1-2 Tablet(s) PO QID as needed for severe pain 06/10/2012 No Stop Date Active alprazolam 0.5 mg tablet RxNorm: 301779 1 Tablet(s) PO BID 06/03/20 12 07/02/2012 Inactive prn ketorolac 10 mg tablet RxNorm: 964288 1 Tablet(s) PO Q8H 05/27/2012 0 01/21/2019 Inactive as needed for headache hydrocodone-acetaminophen 10 mg-325 mg tablet RxNorm: 372096 2 1-2 Tablet(s) PO QID as needed for severe pain 05/15/2012 No Stop Date Active allopurinol 300 mg tablet RxNorm: 176005 1 Tablet(s) PO QD 05/14/20 12 06/12/2012 Inactive allopurinol 300 mg tablet RxNorm: 656783 1 Tablet(s) PO QD 05/14/20 12 05/13/2012 Inactive amlodipine 5 mg tablet RxNorm: 948841 1 Tablet(s) PO QD 05/01/2012 Inactive amlodipine 5 mg Tab RxNorm: 575583 1 Tablet(s) PO QD 05/01/201204/30 Inactive Celebrex 200 mg capsule RxNorm: 913279 1 Capsule(s) PO QD for j oint pain 05/01/2012 06/25/2012 Inactive Singulair 10 mg tablet RxNorm: 007940 1 Tablet(s) PO QD 05/01/2012 Inactive alprazolam 0.5 mg tablet RxNorm: 174216 1 Tablet(s) PO BID 05/01/20 12 05/30/2012 Inactive prn Celebrex 200 mg Cap RxNorm: 617376 1 Capsule(s) PO QD for joint radu n 05/01/2012 04/30/2012 Inactive hydrocodone-acetaminophen 10 mg-325 mg tablet RxNorm: 706813 2 1-2 Tablet(s) PO QID as needed for severe pain 04/19/2012 No Stop Date Active Lasix 40 mg tablet RxNorm: 967840 1 Tablet(s) PO CORTEZM s rajwinderuld take potassium supplementation with this medication 04/05/2012 06/03/2012 Inactive alprazolam 0.5 mg Tab RxNorm: 428601 1 Tablet(s) PO BID 04/05/2012 Inactive prn hydrocodone-acetaminophen 10 mg-325 mg Tab RxNorm: 1279210 1-2 Tablet(s) PO QID as needed for severe pain 03/25/2012 03/24/2012 Inactive clonidine 0.2 mg Tab RxNorm: 616141 1 Tablet(s) PO TID 03/08/2012 Inactive alprazolam 0.5 mg Tab RxNorm: 281235 1 Tablet(s) PO BID 03/08/2012 Inactive prn Soma 350 mg tablet RxNorm: 583381 1 Tablet(s) PO TID for spasm 02/0903/18/2012 Inactive clonidine 0.2 mg tablet RxNorm: 325502 1 Tablet(s) PO TID 03/08/2012 07/28/2012 Inactive Celebrex 200 mg Cap RxNorm: 932659 1 Capsule(s) PO QD for joint radu n 03/01/2012 04/29/2012 Inactive amlodipine 5 mg Tab RxNorm: 338787 1 Tablet(s) PO QD 02/26/201202/24 Inactive amlodipine 5 mg Tab RxNorm: 529780 1 Tablet(s) PO QD 02/26/201204/25 Inactive Bactroban 2 % Ointment RxNorm: 382514 Application TOP QID to sores 02/23/2012 No Stop Date Active amlodipine 2.5 mg tablet RxNorm: 316528 1 Tablet(s) PO QHS 02/20/2002/25/2012 Inactive doxycycline hyclate 100 mg Cap RxNorm: 5924439 1 Capsule(s) PO BID 02/20/2012 02/29/2012 Inactive hydrocodone-acetaminophen 10 mg-325 mg Tab RxNorm: 6308495 1-2 T ablet(s) PO QID 02/08/2012 No Stop Date Active alprazolam 0.5 mg Tab RxNorm: 049765 1 Tablet(s) PO BID 02/08/2012 Inactive prn Singulair 10 mg Tab RxNorm: 352817 1 Tablet(s) PO QD 02/08/201204/30 Inactive Soma 350 mg Tab RxNorm: 792441 1 Tablet(s) PO TID for spasm 012 03/07/2012 Inactive Soma 350 mg Tab RxNorm: 241518 1 Tablet(s) PO TID for spasm 012 02/05/2012 Inactive diclofenac sodium 75 mg tablet,delayed release RxNorm: 15551 8 1 Tablet(s) PO BID for pain 02/01/2012 03/18/2012 Inactive Celebrex 200 mg Cap RxNorm: 378480 1 Capsule(s) PO QD for joint radu n 01/30/2012 02/28/2012 Inactive Lasix 40 mg Tab RxNorm: 709452 1 Tablet(s) PO QAM 01/24/2012 03/18/20 12 Inactive potassium chloride ER 20 mEq tablet,extended release(part/cr yst) RxNorm: 906738 2 Tablet(s) PO BID 01/24/2012 02/22/2012 Inactive alprazolam 0.5 mg Tab RxNorm: 609601 1 Tablet(s) PO BID 01/11/2012 Inactive prn hydrocodone-acetaminophen 10 mg-325 mg Tab RxNorm: 0193155 1-2 T ablet(s) PO QID 01/11/2012 No Stop Date Active Ambien 10 mg Tab RxNorm: 133314 1 Tablet(s) PO QHS 01/11/2012 012 Inactive Klor-Con 8 mEq Tab RxNorm: 749053 1 Tablet(s) PO BID 01/11/201201/22 Inactive diclofenac sodium 75 mg Tab, Delayed Release RxNorm: 447237 1 Tablet(s) PO BID for pain 01/10/2012 01/31/2012 Inactive Ambien 10 mg Tab RxNorm: 634132 1 Tablet(s) PO QHS 12/11/2011 012 Inactive alprazolam 0.5 mg Tab RxNorm: 796222 1 Tablet(s) PO BID 12/11/2011 Inactive prn hydrocodone 10 mg-acetaminophen 325 mg tablet RxNorm: 827858 1-2 Tablet(s) PO TID 11/28/2011 No Stop Date Active as needed for pa in - Previous quantity #240, will start dosing for #180 in April 2011 per Doctor Td. Ambien 10 mg Tab RxNorm: 976911 1 Tablet(s) PO QHS 11/09/2011 012 Inactive alprazolam 0.5 mg Tab RxNorm: 303771 1 Tablet(s) PO BID 11/09/2011 Inactive prn hydrocodone-acetaminophen 10 mg-325 mg Tab RxNorm: 9564317 1-2 T ablet(s) PO TID 11/06/2011 No Stop Date Active as needed for pain - Previous quantity #240, will start dosing for #180 in April 2011 per Doctor Td. Singulair 10 mg Tab RxNorm: 697824 1 Tablet(s) PO QD 10/13/201110/12 Inactive Singulair 10 mg Tab RxNorm: 724356 1 Tablet(s) PO QD 10/13/201102/06 Inactive hydrocodone-acetaminophen 10 mg-325 mg Tab RxNorm: 0810937 1-2 T ablet(s) PO TID 10/10/2011 10/09/2011 Inactive as needed for pain - Previous quantity #240, will start dosing for #180 in April 2011 per Doctor Td. hydrocodone-acetaminophen 10 mg-325 mg Tab RxNorm: 6720869 1-2 T ablet(s) PO TID 10/09/2011 No Stop Date Active as needed for pain - Previous quantity #240, will start dosing for #180 in April 2011 per Doctor Td. Klor-Con 8 mEq Tab RxNorm: 507019 1 Tablet(s) PO BID 10/02/201101/09 Inactive triamterene 75 mg-hydrochlorothiazide 50 mg tablet RxNorm: 3 42447 1 Tablet(s) PO QD 09/14/2011 03/06/2013 Inactive Ambien 10 mg Tab RxNorm: 106292 1 Tablet(s) PO QHS 09/14/2011 012 Inactive hydrocodone-acetaminophen 10 mg-325 mg Tab RxNorm: 7230346 1-2 T ablet(s) PO TID 09/14/2011 No Stop Date Active as needed for pain - Previous quantity #240, will start dosing for #180 in April 2011 per Doctor Td. alprazolam 0.5 mg Tab RxNorm: 185068 1 Tablet(s) PO BID 09/14/2011 Inactive prn Zithromax 500 mg Tab RxNorm: 202842 1 Tablet(s) PO QD 09/13/201109/10 Inactive prednisone 20 mg Tab RxNorm: 510822 1 Tablet(s) PO BID 08/31/2011 Inactive Ambien 10 mg Tab RxNorm: 163288 1 Tablet(s) PO QHS 08/17/2011 011 Inactive hydrocodone-acetaminophen 10 mg-325 mg Tab RxNorm: 2144769 1-2 T ablet(s) PO TID 08/17/2011 No Stop Date Active as needed for pain - Previous quantity #240, will start dosing for #180 in April 2011 per Doctor Td. clonidine 0.2 mg Tab RxNorm: 203864 1 Tablet(s) PO TID 08/17/201112/2011 Inactive Ambien 10 mg Tab RxNorm: 354460 1 Tablet(s) PO QHS 08/17/2011 019 Inactive alprazolam 0.5 mg Tab RxNorm: 031518 1 Tablet(s) PO BID 08/17/2011 Inactive prn hydrocodone-acetaminophen 10 mg-325 mg Tab RxNorm: 3269079 1-2 T ablet(s) PO TID 08/17/2011 08/16/2011 Inactive as needed for pain - Previous quantity #240, will start dosing for #180 in April 2011 per Doctor Td. Singulair 10 mg Tab RxNorm: 651947 1 Tablet(s) PO QD 08/17/201108/16 Inactive Klor-Con 8 mEq Tab RxNorm: 611556 1 Tablet(s) PO QD 08/17/20112011 Inactive alprazolam 0.5 mg Tab RxNorm: 219551 1 Tablet(s) PO BID 07/20/2011 Inactive prn Ambien 10 mg Tab RxNorm: 061683 1 Tablet(s) PO QHS 07/20/2011 012 Inactive Singulair 10 mg Tab RxNorm: 419399 1 Tablet(s) PO QD 07/20/201107/19 Inactive Premarin 1.25 mg tablet RxNorm: 433159 2 Tablet(s) PO QD 07/20/2011 0 01/21/2019 Inactive Premarin 1.25 mg tablet RxNorm: 781863 1-2 Tablet(s) PO QD 07/20/20 11 12/16/2011 Inactive Premarin 1.25 mg Tab RxNorm: 564914 1-2 Tablet(s) PO QD 07/06/2011 Inactive alprazolam 0.5 mg Tab RxNorm: 690951 1 Tablet(s) PO BID 06/22/2011 Inactive prn alprazolam 0.5 mg Tab RxNorm: 008322 1 Tablet(s) PO BID 06/22/2011 Inactive prn Premarin 1.25 mg Tab RxNorm: 642935 1 Tablet(s) PO QD m ay do 90 day fill if desired 06/22/2011 07/05/2011 Inactive hydrocodone-acetaminophen 10 mg-325 mg Tab RxNorm: 8402885 1-2 T ablet(s) PO TID 06/22/2011 No Stop Date Active as needed for pain - Previous quantity #240, will start dosing for #180 in April 2011 per Doctor Td. clonidine 0.2 mg Tab RxNorm: 631958 1 Tablet(s) PO TID 05/25/201103/2011 Inactive triamterene-hydrochlorothiazide 75 mg-50 mg Tab RxNorm: 3108 18 1 Tablet(s) PO QD 05/25/2011 09/13/2011 Inactive alprazolam 0.5 mg Tab RxNorm: 385830 1 Tablet(s) PO BID 05/25/2011 Inactive prn hydrocodone-acetaminophen 10 mg-325 mg Tab RxNorm: 2383247 1-2 T ablet(s) PO TID 05/25/2011 No Stop Date Active as needed for pain - Previous quantity #240, will start dosing for #180 in April 2011 per Doctor Td. Robaxin-750 750 mg Tab RxNorm: 033103 2 Tablet(s) PO QHS 05/22/2011 1 Inactive prn spasm hydrocodone-acetaminophen 10 mg-325 mg Tab RxNorm: 3436506 1-2 T ablet(s) PO TID 04/26/2011 No Stop Date Active as needed for pain - Previous quantity #240, will start dosing for #180 in April 2011 per Doctor Td. alprazolam 0.5 mg Tab RxNorm: 008209 1 Tablet(s) PO BID 04/25/2011 Inactive prn Klor-Con 8 mEq Tab RxNorm: 390349 1 Tablet(s) PO QD 03/30/20112010 Inactive Klor-Con 8 mEq Tab RxNorm: 304840 1 Tablet(s) PO QD 03/29/20112010 Inactive hydrocodone-acetaminophen 10 mg-325 mg Tab RxNorm: 9998471 1-2 T ablet(s) PO TID 03/20/2011 04/25/2011 Inactive as needed for pain - Previous quantity #240, will start dosing for #180 in April 2011 per Doctor Td. alprazolam 0.5 mg Tab RxNorm: 504635 1 Tablet(s) PO BID prn 011 03/30/2011 Inactive Ambien 10 mg Tab RxNorm: 236751 1 Tablet(s) PO QHS 03/01/2011 011 Inactive cyclobenzaprine 10 mg Tab RxNorm: 538501 1 Tablet(s) PO TID 011 03/18/2012 Inactive cyclobenzaprine 10 mg Tab RxNorm: 901823 1 Tablet(s) PO TID 011 01/08/2011 Inactive cyclobenzaprine 10 mg Tab RxNorm: 733993 1 Tablet(s) PO TID 011 12/20/2010 Inactive terbinafine 250 mg Tab RxNorm: 088128 1 Tablet(s) PO QD 12/12/2010 Inactive triamterene-hydrochlorothiazide 75 mg-50 mg Tab RxNorm: 3108 18 1 Tablet(s) PO QD 12/07/2010 06/04/2011 Inactive Klor-Con 8 8 mEq Tab RxNorm: 622227 1 Tablet(s) PO QD 12/07/201001/08 Inactive Premarin 1.25 mg Tab RxNorm: 726773 2 Tablet(s) PO QD 12/07/201001/08 Inactive clonidine 0.2 mg Tab RxNorm: 890902 1 Tablet(s) PO TID 12/07/2010 Inactive hydrocodone-acetaminophen 7.5 mg-650 mg Tab RxNorm: 339957 1 Ta blet(s) PO Q4H 12/05/2010 01/21/2019 Inactive hydrocodone-acetaminophen 7.5 mg-650 mg Tab RxNorm: 566986 1 Ta blet(s) PO Q4H 10/26/2010 11/14/2010 Inactive hydrocodone-acetaminophen 7.5 mg-650 mg Tab RxNorm: 858132 1 Ta blet(s) PO Q4H 10/13/2010 10/25/2010 Inactive hydrocodone-acetaminophen 7.5 mg-650 mg Tab RxNorm: 564795 1 Ta blet(s) PO Q4H 09/15/2010 09/12/2010 Inactive alprazolam 0.5 mg Tab RxNorm: 419835 1 Tablet(s) PO BID prn 011 09/12/2010 Inactive terbinafine 250 mg Tab RxNorm: 703540 1 Tablet(s) PO QD 09/05/2010 Inactive hydrocodone-acetaminophen 7.5 mg-650 mg Tab RxNorm: 902377 1 Ta blet(s) PO Q4H 08/29/2010 09/17/2010 Inactive alprazolam 0.5 mg Tab RxNorm: 129584 1 Tablet(s) PO BID prn 010 09/27/2010 Inactive alprazolam 0.5 mg Tab RxNorm: 212213 1 Tablet(s) PO BID prn 010 09/06/2010 Inactive Klor-Con 8 mEq Tab RxNorm: 973070 1 Tablet(s) PO QD 08/08/20102010 Inactive hydrocodone-acetaminophen 7.5 mg-650 mg Tab RxNorm: 994784 1 Ta blet(s) PO Q4H 08/08/2010 08/27/2010 Inactive Ambien 10 mg Tab RxNorm: 334763 1 Tablet(s) PO QHS 08/08/2010 Inactive clonidine 0.2 mg Tab RxNorm: 175735 1 Tablet(s) PO TID 08/08/2010 Inactive Premarin 1.25 mg Tab RxNorm: 264538 2 Tablet(s) PO QD 08/08/201009/12 Inactive Ambien 10 mg Tab RxNorm: 641547 1 Tablet(s) PO QHS 07/18/2010 Inactive alprazolam 0.5 mg Tab RxNorm: 536949 1 Tablet(s) PO BID prn 08/07/2010 Inactive hydrocodone-acetaminophen 7.5 mg-650 mg Tab RxNorm: 904339 1 Ta blet(s) PO Q4H 07/12/2010 07/31/2010 Inactive clonidine 0.2 mg Tab RxNorm: 132035 1 Tablet(s) PO TID 06/20/2010 Inactive terbinafine 250 mg Tab RxNorm: 349159 1 Tablet(s) PO QD 05/24/2010 Inactive Clonidine 0.2 mg Tab RxNorm: 403463 1 Tablet(s) PO TID 05/24/201006/2010 Inactive Ambien 10 mg Tab RxNorm: 962036 1 Tablet(s) PO QHS 05/24/2010 Inactive alprazolam 0.5 mg Tab RxNorm: 269697 1 Tablet(s) PO BID 05/24/2010 Inactive Klor-Con 8 mEq Tab RxNorm: 265810 1 Tablet(s) PO QD 05/24/20102009 Inactive alprazolam 0.5 mg Tab RxNorm: 072036 2 Tablet(s) PO QD prn 05/24/2007/17/2010 Inactive triamterene-hydrochlorothiazide 75 mg-50 mg Tab RxNorm: 3108 18 1 Tablet(s) PO QD 05/24/2010 11/19/2010 Inactive Ambien 10 mg Tab RxNorm: 365219 1 Tablet(s) PO QHS 05/23/2010 09/13/2 010 Inactive Alprazolam 0.5 mg Tab RxNorm: 176519 2 Tablet(s) PO QD prn 05/23/20 10 05/23/2010 Inactive Premarin 1.25 mg Tab RxNorm: 167076 2 Tablet(s) PO QD 05/19/201007/12 Inactive Hydrocodone-Acetaminophen 7.5 mg-650 mg Tab RxNorm: 216602 1 Ta blet(s) PO Q4H 05/19/2010 03/20/2011 Inactive Prednisone 20 mg Tab RxNorm: 924130 1 Tablet(s) PO BID 05/17/2010 Inactive Prednisone 20 mg Tab RxNorm: 528869 1 Tablet(s) PO BID 05/06/201001/2010 Inactive Premarin 1.25 mg Tab RxNorm: 569006 Tablet(s) PO 2 M-W-F, and 1 Th-Rd-Zhd-Sun 05/05/2010 08/02/2010 Inactive Premarin 1.25 mg Tab RxNorm: 093656 Tablet(s) PO 2 M-W-F, and 1 Ln-Kt-Eay-Sun 05/04/2010 05/04/2010 Inactive Premarin 1.25 mg Tab RxNorm: 676731 Tablet(s) PO 2 M-W-F, and 1 Ou-Ap-Xio-Sun 05/04/2010 05/03/2010 Inactive Prednisone 20 mg Tab RxNorm: 583949 1 Tablet(s) PO BID 04/27/2010 Inactive Alprazolam 0.5 mg Tab RxNorm: 547051 2 Tablet(s) PO QD prn 04/26/20 10 05/22/2010 Inactive Clindamycin 300 mg Cap RxNorm: 217340 2 Capsule(s) PO TID 04/05/2010 04/18/2010 Inactive Terbinafine 250 mg Tab RxNorm: 527590 1 Tablet(s) PO QD 04/04/2010 Inactive Hydrocodone-Acetaminophen 7.5 mg-650 mg Tab RxNorm: 119742 1 Ta blet(s) PO Q4H 03/30/2010 04/18/2010 Inactive Avelox 400 mg Tab RxNorm: 451938 1 Tablet(s) PO QD 03/09/2010 010 Inactive Hydrocodone-Acetaminophen 7.5 mg-650 mg Tab RxNorm: 564766 1 Ta blet(s) PO Q4H 03/08/2010 03/27/2010 Inactive Alprazolam 0.5 mg Tab RxNorm: 951112 2 Tablet(s) PO QD prn 03/08/20 10 04/25/2010 Inactive Klor-Con 8 mEq Tab RxNorm: 353645 1 Tablet(s) PO QD when takes lasi x 03/07/2010 09/29/2019 Inactive Premarin 1.25 mg Tab RxNorm: 573079 1 Tablet(s) PO QD 03/03/201003/11 Inactive Alprazolam 0.5 mg Tab RxNorm: 565959 1 Tablet(s) PO BID PRN 010 No Stop Date Active triamterene-hydrochlorothiazide 75 mg-50 mg Tab RxNorm: 3108 18 1 Tablet(s) PO QD 02/09/2010 02/03/2011 Inactive Hydrocodone-Acetaminophen 10 mg-750 mg Tab RxNorm: 397336 1 Tablet(s) PO Q4H PRN 02/09/2010 03/20/2011 Inactive Clonidine 0.2 mg Tab RxNorm: 583432 1 Tablet(s) PO TID 01/13/201009/2009 Inactive Alprazolam 0.5 mg Tab RxNorm: 670593 1 Tablet(s) PO BID PRN 010 01/12/2010 Inactive Hydrocodone-Acetaminophen 10 mg-750 mg Tab RxNorm: 133077 1 Tablet(s) PO Q4H PRN 01/13/2010 01/12/2010 Inactive ANGELIQ 1 mg-0.5 mg Tab RxNorm: 5908422 1 Tablet(s) PO QD 12/27/2009 01/23/2010 Inactive Lasix 40 mg Tab RxNorm: 339059 1 Tablet(s) PO QAM 12/14/2009 06/11/20 10 Inactive Vitamin B12 1000mcg Tablet RxNorm: 1 Tablet(s) PO QD No Start Date Active cyclobenzaprine 10 mg tablet RxNorm: 952618 1 Tablet(s) PO TID as needed DO NOT USE WITH BACLOFEN No Start Date Active Vitamin D 5,000 unit Tab RxNorm: 1 Tablet(s) PO QD No Start Date Active vitamin E (dl, acetate) 400 unit Cap RxNorm: 355392 1 Capsule(s ) PO QD No Start Date Active Benadryl 25 mg Cap RxNorm: 8610503 Capsule(s) PO PRN No Start Date Inactive amitriptyline 100 mg tablet RxNorm: 655847 1 Tablet(s) PO QHS No St art Date 11/27/2016 Inactive Zithromax Z-Dustin 250 mg tablet RxNorm: 148171 Tablet(s) PO as di rected No Start Date 07/22/2013 Inactive Klor-Con 8 mEq tablet,extended release RxNorm: 414862 1 Tablet( s) PO BID No Start Date 07/28/2012 Inactive scopolamine 1.5 mg 72 hr Transderm Patch RxNorm: 662753 Application TD Q72H for motion sickness No Start Date 05/25/2013 Inactive Klonopin 1 mg tablet RxNorm: 661498 1-2 Tablet(s) PO QHS as nee ded for sleep No Start Date 06/20/2015 Inactive Klor-Con M20 mEq tablet,extended release RxNorm: 375033 2 Tablet(s) PO BID to use with lasix No Start Date 11/11/2013 Inactive Bystolic 5 mg tablet RxNorm: 073543 1 Tablet(s) PO QD No Start Date 1 Inactive Bystolic 10 mg tablet RxNorm: 918163 1 Tablet(s) PO BID No Start Da te 07/06/2015 Inactive Premarin 1.25 mg Tab RxNorm: 158078 Tablet(s) PO 2 --, and 1 [id number] No Start Date 05/03/2010 Inactive baclofen 20 mg tablet RxNorm: 017871 1 Tablet(s) PO TID as needed for muscle spasm No Start Date 07/22/2015 Inactive hydrocodone-acetaminophen 7.5 mg-650 mg Tab RxNorm: 911939 1 Tablet(s) PO Q4H as needed for pain No Start Date 03/20/2011 Inactive albuterol sulfate 1.25 mg/3 mL Neb Solution RxNorm: 582791 1 Unit Dose INH Q4H 2boxes No Start Date 09/06/2015 Inactive Butrans 20 mcg/hour Transderm Patch RxNorm: 633653 1 TD WEEKLY apply to skin weekly after removing previous. No Start Date 07/22/2013 Inactive Medrol (Dustin) 4 mg tablets in a dose pack RxNorm: 758350 Tablet(s) PO As Directed No Start Date 07/30/2016 Inactive hydrocodone-acetaminophen 10 mg-325 mg Tab RxNorm: 1906733 1-2 Tablet(s) PO TID as needed for pain No Start Date 03/19/2011 Inactive Klonopin 1 mg tablet RxNorm: 133352 1 Tablet(s) PO QHS No Start Date 02/28/2016 Inactive honey topical RxNorm: topical No Start Date 06/16/2018 Inactive Clonidine 0.2 mg Tab RxNorm: 613790 1 Tablet(s) PO TID No Start Date 01/12/2010 Inactive ketorolac 10 mg tablet RxNorm: 083388 1 Tablet(s) PO Q8H No Start D ate 03/18/2012 Inactive as needed for headache Singulair 10 mg Tab RxNorm: 343400 1 Tablet(s) PO QD No Start Date Inactive Premarin 1.25 mg Tab RxNorm: 721062 1 Tablet(s) PO QD No Start Date 1 Inactive Flonase 50 mcg/Actuation Nasal [place] RxNorm: 2785963 1 [place] CECEL[place] AL BID No Start Date 03/18/2012 Inactive Terbinafine 250 mg Tab RxNorm: 382724 1 Tablet(s) PO QD No Start Da te 04/03/2010 Inactive Fexofenadine 180 mg Tab RxNorm: 1645796 1 Tablet(s) PO QD No Start Date 09/06/2015 Inactive baclofen 20 mg tablet RxNorm: 340255 1 Tablet(s) PO TID as needed N o Start Date 05/25/2014 Inactive Diovan 160 mg Tab RxNorm: 473029 1 Tablet(s) PO QD No Start Date 09/12 Inactive mupirocin 2 % topical ointment RxNorm: 167974 1 Application TOP QID No Start Date 04/25/2016 Inactive ZOFRAN ODT 4 mg Tab, Rapid Dissolve RxNorm: 227277 1 Tablet(s) PO Q4H No Start Date 03/18/2012 Inactive as needed for nausea and vomiting Alprazolam 0.5 mg Tab RxNorm: 875209 1 Tablet(s) PO BID PRN No Star t Date 01/12/2010 Inactive cyclobenzaprine 10 mg tablet RxNorm: 012681 1 Tablet(s) PO TID as needed for muscle spasm No Start Date 10/08/2017 Inactive Albuterol 0.083% Aerosol Solution RxNorm: 1 Appl ication INH Q4H Use one ampule every 4 hrs with nebulizer as needed for shortness of breath. No Start Date 10/09/2010 Inactive lorazepam 1 mg tablet RxNorm: 846799 1 1/2 Tablet(s) PO QHS No Star t Date 02/02/2016 Inactive Melatonin 3 mg Tab RxNorm: 043588 Tablet(s) PO PRN No Start Date 07/11 Inactive Medrol (Dustin) 4 mg Tabs in a Dose Pack RxNorm: 765981 Tablet(s) PO N o Start Date 11/28/2010 Inactive lorazepam 1 mg tablet RxNorm: 040721 1 Tablet(s) PO QHS as need ed for sleep No Start Date 01/30/2016 Inactive hydrocodone-acetaminophen 10 mg-325 mg Tab RxNorm: 7580176 1-2 Tablet(s) PO QID as needed for severe pain No Start Date 03/24/2012 Inactive celecoxib 200 mg capsule RxNorm: 019871 1 Capsule(s) PO BID No Star t Date 06/26/2019 Inactive amlodipine 5 mg-benazepril 20 mg capsule RxNorm: 509471 1 Capsu le(s) PO QD No Start Date 04/10/2017 Inactive Bystolic 20 mg tablet RxNorm: 441189 1/2 Tablet(s) PO QAM No Start Date 01/23/2016 Inactive Bystolic 20 mg tablet RxNorm: 461491 1 Tablet(s) PO QAM No Start Da te 04/25/2016 Inactive Ambien 10 mg Tab RxNorm: 100603 1 Tablet(s) PO QHS No Start Date 05/11 Inactive Klor-Con 8 mEq Tab RxNorm: 763306 1 Tablet(s) PO QD when takes lasix No Start Date 03/06/2010 Inactive aspirin 81 mg tablet RxNorm: 195496 1 Tablet(s) PO QD No Start Date 01/29/2018 Inactive hydrocodone-acetaminophen 10 mg-325 mg Tab RxNorm: 2941812 1-2 T ablet(s) PO QID No Start Date 01/10/2012 Inactive Bystolic 10 mg tablet RxNorm: 118385 1 Tablet(s) PO QAM take one daily in the morning. No Start Date 05/28/2013 Inactive nystatin 100,000 unit/mL Oral Susp RxNorm: 738577 5 Milliliter( s) PO QID No Start Date 03/18/2012 Inactive swish and spit scopolamine 1.5 mg 72 hr Transderm Patch RxNorm: 199019 1 Unit Dose TD Q72H for motion sickness No Start Date 12/23/2013 Inactive Hydrocodone-Acetaminophen 10 mg-750 mg Tab RxNorm: 564095 1 Tablet(s) PO Q4H PRN No Start Date 01/12/2010 Inactive Soma 350 mg tablet RxNorm: 325473 1 Tablet(s) PO TID as needed for spasm No Start Date 01/12/2013 Inactive baclofen 10 mg tablet RxNorm: 229162 1 Tablet(s) PO TID as needed for muscle spasm No Start Date 09/18/2019 Inactive Soma 350 mg Tab RxNorm: 583615 1 Tablet(s) PO TID for spasm No Star t Date 01/31/2012 Inactive Co Q-10 400 mg capsule RxNorm: 849766 1 Capsule(s) PO QD No Start D ate 01/21/2019 Inactive nystatin 100,000 unit/gram topical cream RxNorm: 378581 Applica tion TOP BID No Start Date 03/22/2015 Inactive Exforge 5 mg-160 mg Tab RxNorm: 423159 1 Tablet(s) PO QD No Start D ate 10/09/2010 Inactive Hydrocodone-Acetaminophen 7.5 mg-650 mg Tab RxNorm: 634000 1 Ta blet(s) PO Q4H No Start Date 03/07/2010 Inactive Robaxin-750 750 mg Tab RxNorm: 388047 1-2 Tablet(s) PO TID prn spasm No Start Date 05/21/2011 Inactive amlodipine 5 mg tablet RxNorm: 006712 1 Tablet(s) PO QHS No Start D ate 09/29/2015 Inactive oxycodone-acetaminophen 10 mg-325 mg tablet RxNorm: 4046163 1-2 Tablet(s) PO Q6H No Start Date 06/16/2018 Inactive Triamterene-Hydrochlorothiazide 75 mg-50 mg Tab RxNorm: 3108 18 1 Tablet(s) PO QD No Start Date 02/08/2010 Inactive Alprazolam 0.5 mg Tab RxNorm: 362356 2 Tablet(s) PO QD prn No Start Date 03/07/2010 Inactive Bystolic 20 mg tablet RxNorm: 519622 1 Tablet(s) PO QAM No Start Da te 08/17/2015 Inactive ketorolac 10 mg tablet RxNorm: 751957 1 Tablet(s) PO QID prn he adache No Start Date 07/17/2012 Inactive acyclovir 800 mg Tab RxNorm: 871028 1 Tablet(s) PO BID No Start Date 03/18/2012 Inactive duloxetine 60 mg capsule,delayed release RxNorm: 890119 1 Capsu le(s) PO QD No Start Date 09/29/2015 Inactive Norvasc 5 mg tablet RxNorm: 478057 1 Tablet(s) PO QHS No Start Date 1 10/18/2014 Inactive promethazine 25 mg tablet RxNorm: 218283 1 Tablet(s) PO Q8H use sparingly No Start Date 07/22/2013 Inactive alprazolam 0.5 mg tablet RxNorm: 198388 3 Tablet(s) PO QHS No Start Date 06/06/2015 Inactive Lunesta 3 mg tablet RxNorm: 270738 1 Tablet(s) PO QHS No Start Date 0 09/20/2017 Inactive hydrocodone-acetaminophen 10 mg-325 mg Tab RxNorm: 9624686 1-2 Tablet(s) PO TID as needed for pain No Start Date 12/10/2011 Inactive Coricidin HBP Cough & Cold 4 mg-30 mg Tab RxNorm: 6222238 Tablet (s) PO PRN No Start Date 10/09/2010 Inactive Bactroban 2 % Ointment RxNorm: 471455 Application TOP QID to so res No Start Date 02/22/2012 Inactive Flonase 50 mcg/actuation Nasal [place] RxNorm: 632284 2 [place] C[place] AL QHS No Start Date 03/03/2014 Inactive Medication Administered No Medication Administered data Immunizations Vaccine Codes Date Status Tetanus, Diptheria, Pertussis CVX: 115 02/27/2014 Results Observation Observation Code Item Item Code Result Date S ervice Location [facility]PREHENS[facility] 42215 AST 15 U/L 2019 Unknown [facility] 73621 ALT 13 U/L 2019 Unknown [facility] 73426 BUN 12 mg/dL 2019 Unknown [facility] 44613 ALBUMIN 3.9 g/dL 2019 Unknown [facility] 93858 CHLORIDE 97 mmol/L 2019 Unknown [facility] MET[facility]OL[facility] 66509 Bili Total 0.4 mg/dL 09/29 Unknown COMPREHENSIVE METABOLIC 34444 ALK PHOS 130 U/L 2019 Unknown [facility] MET[facility] 22445 SODIUM 136 mmol/L 09/29 Unknown COMPREHENSIVE METABOLIC 79877 CREATININE 0.92 mg/dL 09/11 Unknown [facility] MET[facility] 68629 CALCIUM 9.1 mg/dL 2019 Unknown [facility] 71097 POTASSIUM 4.4 mmol/L 09/29 Unknown COMPREHENS[facility] METABOL[facility] 38228 Total Protein 6.2 g/dL Unknown [facility] 75122 Glucose 391 mg/dL 2019 Unknown COMPREHENSIVE MET[facility]OL[facility] 70806 Bicarbonate 30 mmol/L 09/11 Unknown COMPREHENSIVE METABOLIC 26282 AGAP 9 mmol/L 2019 Unknown MEAN GLUC 1120442 Calc Mean Gluc 332 mg/dL 09/29/2019 Unkn own COMPLETE BLOOD COUNT [id number] WBC 7.0 10e9/L 09/29/19 Unknown COMPLETE BLOOD COUNT [id number] RBC 4.69 10e12/L 2019 Unknown COMPLETE BLOOD COUNT 9361543 HEMOGLOBIN 14.6 g/dL 09/29/19 Unknown COMPLETE BLOOD COUNT [id number] HEMATOCRIT 45.2 % 09/29/19 Unknown COMPLETE BLOOD COUNT [id number] MCV 96.4 fL 0 Unknown COMPLETE BLOOD COUNT [id number] MCH 31.1 pg 0 Unknown COMPLETE BLOOD COUNT 5253173 MCHC 32.3 g/dL 0 Unknown COMPLETE BLOOD COUNT [id number] PLATELET COUNT 209 10e9/L Unknown COMPLETE BLOOD COUNT 8400586 Mean Plt Volume 9.8 fL Unknown COMPLETE BLOOD COUNT 2544237 Neut Auto 48.1 % 0 Unknown COMPLETE BLOOD COUNT [id number] Lymph Auto 36.5 % 09/29/19 20 Unknown COMPLETE BLOOD COUNT [id number] Dunn Auto 8.6 % 0 Unknown COMPLETE BLOOD COUNT 8170022 Eos Auto 6.5 % 0 Unknown COMPLETE BLOOD COUNT [id number] RDW 13.4 % 0 Unknown COMPLETE BLOOD COUNT [id number] Baso Auto 0.3 % 0 Unknown COMPLETE BLOOD COUNT [id number] Neutrophil Abs 3.37 10e9/L Unknown COMPLETE BLOOD COUNT 8569606 Lymphocyte Abs 2.56 10e9/L Unknown COMPLETE BLOOD COUNT [id number] Monocyte Abs 0.60 10e9/L 09/11 Unknown COMPLETE BLOOD COUNT [id number] Eosinophil Abs 0.46 10e9/L Unknown COMPLETE BLOOD COUNT 6776003 RDW-SD 45.9 fL 0 Unknown COMPLETE BLOOD COUNT [id number] Basophil Abs 0.02 10e9/L 09/11 Unknown LIPID GROUP 46497 Cholesterol 248 mg/dL 09/29/2019 Unkno wn LIPID GROUP 95913 Triglyceride 898 mg/dL 09/29/2019 Unkn own LIPID GROUP 97045 HDL CHOLESTEROL 41 mg/dL 09/29/2019 U nknown LIPID GROUP 29199 Chol/HDL Ratio 6.05 ratio 09/29/2019 U nknown LIPID GROUP 34482 NON-HDL Chol 207 mg/dL 09/29/2019 Unkn own LIPID GROUP 39862 LDL Cholesterol N/A Trig >400 020 Unknown GLYCOSYLATED HEMOGLOBIN TEST 83998 Hgb A1c 60424-7 13.2 % 0 09/29/2019 Unknown FREE T4 14289 T4 Free 0.75 ng/dL 09/29/2019 Unknown GFR CALC 7696691 GFR Afr Amr >60 mL/min 09/29/2019 Unknow n GFR CALC 5944438 GFR Non Afr Amr >60 mL/min 09/29/2019 Un known THYROID STIMULATING HORMONE 27553 TSH 4.245 uIU/mL 09/29/2019 Unknown COMPLETE BLOOD COUNT 3805307 WBC 10.7 10e9/L 018 Unknown COMPLETE BLOOD COUNT 0396408 RBC 4.59 10e12/L 2017 Unknown COMPLETE BLOOD COUNT [id number] HEMOGLOBIN 14.8 g/dL 12/11/19 18 Unknown COMPLETE BLOOD COUNT 7679894 HEMATOCRIT 44.9 % 12/11/19 18 Unknown COMPLETE BLOOD COUNT [id number] MCV 97.8 fL 8 Unknown COMPLETE BLOOD COUNT 1067853 MCH 32.2 pg 8 Unknown COMPLETE BLOOD COUNT 7030707 MCHC 33.0 g/dL 8 Unknown COMPLETE BLOOD COUNT 0845542 PLATELET COUNT 261 10e9/L 10/2017 Unknown COMPLETE BLOOD COUNT 1996415 Mean Plt Volume 9.5 fL 10/2017 Unknown COMPLETE BLOOD COUNT 5583221 Neut Auto 59.9 % 8 Unknown COMPLETE BLOOD COUNT [id number] Lymph Auto 27.4 % 12/11/19 18 Unknown COMPLETE BLOOD COUNT 2759001 Dunn Auto 8.2 % 8 Unknown COMPLETE BLOOD COUNT 5750886 Eos Auto 4.1 % 8 Unknown COMPLETE BLOOD COUNT 6203710 RDW 13.3 % 8 Unknown COMPLETE BLOOD COUNT 0755830 Baso Auto 0.4 % 8 Unknown COMPLETE BLOOD COUNT [id number] Neutrophil Abs 6.41 10e9/L Unknown COMPLETE BLOOD COUNT 4153506 Lymphocyte Abs 2.93 10e9/L Unknown COMPLETE BLOOD COUNT [id number] Monocyte Abs 0.88 10e9/L 10/2017 Unknown COMPLETE BLOOD COUNT 9999602 Eosinophil Abs 0.44 10e9/L Unknown COMPLETE BLOOD COUNT [id number] RDW-SD 46.2 fL 8 Unknown COMPLETE BLOOD COUNT [id number] Basophil Abs 0.04 10e9/L 10/2017 Unknown THYROID STIMULATING HORMONE 59344 TSH 4.015 uIU/mL 12/10/2017 Unknown COMPREHENSIVE METABOLIC 14279 AST 25 U/L 2017 Unknown COMPREHENSIVE METABOLIC 76316 ALT 17 U/L 2017 Unknown COMPREHENSIVE METABOLIC 75605 BUN 19 mg/dL 2017 Unknown COMPREHENSIVE METABOLIC 84667 ALBUMIN 4.0 g/dL 2017 Unknown COMPREHENSIVE METABOLIC 55466 CHLORIDE 91 mmol/L 2017 Unknown COMPREHENSIVE METABOLIC 28295 Bili Total 0.5 mg/dL 12/10 Unknown COMPREHENSIVE METABOLIC 42955 ALK PHOS 75 U/L 2017 Unknown COMPREHENSIVE METABOLIC 79781 SODIUM 136 mmol/L 12/10 Unknown COMPREHENSIVE METABOLIC 89743 CREATININE 1.05 mg/dL 10/2017 Unknown COMPREHENSIVE METABOLIC 66494 CALCIUM 8.9 mg/dL 2017 Unknown COMPREHENSIVE METABOLIC 52614 POTASSIUM 3.4 mmol/L 12/10 Unknown COMPREHENSIVE METABOLIC 35451 Total Protein 6.5 g/dL Unknown COMPREHENSIVE METABOLIC 08780 Glucose 138 mg/dL 2017 Unknown COMPREHENSIVE METABOLIC 52670 Bicarbonate 35 mmol/L 10/2017 Unknown COMPREHENSIVE METABOLIC 33012 AGAP 10 mmol/L 2017 Unknown MEAN GLUC 0082985 Calc Mean Gluc 171 mg/dL 12/10/2017 Unkn own LIPID GROUP 14198 Cholesterol 204 mg/dL 12/10/2017 Unkno wn LIPID GROUP 21531 Triglyceride 411 mg/dL 12/10/2017 Unkn own LIPID GROUP 88270 HDL CHOLESTEROL 50 mg/dL 12/10/2017 U nknown LIPID GROUP 92950 Chol/HDL Ratio 4.08 ratio 12/10/2017 U nknown LIPID GROUP 29692 NON-HDL Chol 154 mg/dL 12/10/2017 Unkn own LIPID GROUP 67641 LDL Cholesterol N/A Trig >400 018 Unknown GLYCOSYLATED HEMOGLOBIN TEST 48665 Hgb A1c 98244-3 7.6 % 0 12/10/2017 Unknown FREE T4 55563 T4 Free 1.40 ng/dL 12/10/2017 Unknown GFR CALC 7593320 GFR Non Afr Amr 55 mL/min 12/10/2017 Unk nown GFR CALC 0623107 GFR Afr Amr >60 mL/min 12/10/2017 Unknow n GFR CALC 7448527 GFR Non Afr Amr 48 mL/min 06/28/2017 Unk nown GFR CALC 3691367 GFR Afr Amr 59 mL/min 06/28/2017 Unknown COMPREHENSIVE METABOLIC 94779 AST 32 U/L 2016 Unknown COMPREHENSIVE METABOLIC 77428 ALT 22 U/L 2016 Unknown COMPREHENSIVE METABOLIC 59128 BUN 23 mg/dL 2016 Unknown COMPREHENSIVE METABOLIC 49654 ALBUMIN 4.7 g/dL 2016 Unknown COMPREHENSIVE METABOLIC 20127 CHLORIDE 89 mmol/L 2016 Unknown COMPREHENSIVE METABOLIC 06442 Bili Total 0.5 mg/dL 06/28 Unknown COMPREHENSIVE METABOLIC 04077 ALK PHOS 90 U/L 2016 Unknown COMPREHENSIVE METABOLIC 62711 SODIUM 135 mmol/L 06/28 Unknown COMPREHENSIVE METABOLIC 12278 CREATININE 1.18 mg/dL 06/10 Unknown COMPREHENSIVE METABOLIC 27239 CALCIUM 9.7 mg/dL 2016 Unknown COMPREHENSIVE METABOLIC 03297 POTASSIUM 3.5 mmol/L 06/28 Unknown COMPREHENSIVE METABOLIC 15275 Total Protein 7.7 g/dL Unknown COMPREHENSIVE METABOLIC 64556 Glucose 129 mg/dL 2016 Unknown COMPREHENSIVE METABOLIC 44449 Bicarbonate 34 mmol/L 06/10 Unknown COMPREHENSIVE METABOLIC 81848 AGAP 12 mmol/L 2016 Unknown LIPID GROUP 88461 HDL TEST 64 MG/DL 08/27/2014 Unknown LIPID GROUP 89040 TRIG 222 MG/DL 08/27/2014 Unknown LIPID GROUP 34246 TEST LDL 209 MG/DL 08/27/2014 Unknown LIPID GROUP 88292 CHOL 317 MG/DL 08/27/2014 Unknown LIPID GROUP 21695 RCHOL/HDL 4.95 RATIO 08/27/2014 Unknow n LIPID GROUP 10094 NON-HDL CH 253 MG/DL 08/27/2014 Unknow n GFR CALC 1906395 GFR AA >60 ML/MIN 08/27/2014 Unknown GFR CALC 8310678 GFR NON-AA >60 ML/MIN 08/27/2014 Unknown COMPLETE BLOOD COUNT 9942497 WBC 7.0 10e9/L 08/27/20 14 Unknown COMPLETE BLOOD COUNT 3400528 RBC 4.98 10e12/L 2013 Unknown COMPLETE BLOOD COUNT 7419613 HGB 15.6 g/dL 4 Unknown COMPLETE BLOOD COUNT 0835012 HCT DET 46.5 % 4 Unknown COMPLETE BLOOD COUNT 8986553 MCV 93.4 fL 4 Unknown COMPLETE BLOOD COUNT 5543140 MCH 31.3 pg 4 Unknown COMPLETE BLOOD COUNT 0541044 MCHC 33.5 g/dL 4 Unknown COMPLETE BLOOD COUNT 5558662 PLT 309 10e9/L 08/27/20 14 Unknown COMPLETE BLOOD COUNT 6861258 MPV 9.6 fL 4 Unknown COMPLETE BLOOD COUNT 9841413 CADEN % 57.2 % 4 Unknown COMPLETE BLOOD COUNT 4949432 LY % 33.2 % 4 Unknown COMPLETE BLOOD COUNT 8730016 MON % 7.3 % 4 Unknown COMPLETE BLOOD COUNT [id number] EOS % 2.0 % 4 Unknown COMPLETE BLOOD COUNT 5793346 BASO % 0.3 % 4 Unknown COMPLETE BLOOD COUNT 5275518 RDW 13.7 % 4 Unknown COMPLETE BLOOD COUNT [id number] ABS CADEN 4.00 10e9/L 014 Unknown COMPLETE BLOOD COUNT 2105706 ABS LYMPH 2.32 10e9/L 014 Unknown COMPLETE BLOOD COUNT 1197015 ABS MONO 0.51 10e9/L 014 Unknown COMPLETE BLOOD COUNT [id number] ABS EOS 0.14 10e9/L 014 Unknown COMPLETE BLOOD COUNT 9454623 ABS BASO 0.02 10e9/L 014 Unknown COMPLETE BLOOD COUNT 7472390 RDW-SD 45.1 fL 4 Unknown COMPREHENSIVE METABOLIC 64538 AST 13 U/L 2013 Unknown COMPREHENSIVE METABOLIC 47489 ALT 11 IU/L 2013 Unknown COMPREHENSIVE METABOLIC 74608 BUN 23 MG/DL 2013 Unknown COMPREHENSIVE METABOLIC 77061 ALBUMIN 4.4 GM/DL 2013 Unknown COMPREHENSIVE METABOLIC 85246 CHLORIDE 99 MMOL/L 2013 Unknown COMPREHENSIVE METABOLIC 98070 BILI TOT 0.5 MG/DL 2013 Unknown COMPREHENSIVE METABOLIC 84407 ALK PHOS 56 U/L 2013 Unknown COMPREHENSIVE METABOLIC 37969 SODIUM 138 MMOL/L 08/27 Unknown COMPREHENSIVE METABOLIC 41969 CREATININE 0.95 MG/DL 08/10 Unknown COMPREHENSIVE METABOLIC 69549 CALCIUM 9.8 MG/DL 2013 Unknown COMPREHENSIVE METABOLIC 04573 POTASSIUM 3.5 MMOL/L 08/27 Unknown COMPREHENSIVE METABOLIC 08760 PROT TOT 6.8 GM/DL 2013 Unknown COMPREHENSIVE METABOLIC 06615 Glucose 90 MG/DL 2013 Unknown COMPREHENSIVE METABOLIC 14443 BICARB 34 MMOL/L 2013 Unknown COMPREHENSIVE METABOLIC 77274 ANION GAP 5 MEQ/L 2013 Unknown LIPASE 63987 LIPASE 11 IU/L 07/21/2014 Unknown AMYLASE 08992 AMYLASE 39 IU/L 07/21/2014 Unknown HEMOGLOBIN A1C (GLYCOSYLATED) 0968023 A1C HPLC 98823-4 6.2 % 03/05/2013 Unknown THYROID STIMULATING HORMONE 57900 TSH 6.986 uIU/ML 03/05/2013 Unknown COMPLETE BLOOD COUNT 8941256 WBC 12.7 10e9/L 013 Unknown COMPLETE BLOOD COUNT 2497365 RBC 4.53 10e12/L 2012 Unknown COMPLETE BLOOD COUNT 8068547 HGB 14.7 g/dL 3 Unknown COMPLETE BLOOD COUNT 1073580 HCT DET 43.1 % 3 Unknown COMPLETE BLOOD COUNT 1430228 MCV 95.1 fL 3 Unknown COMPLETE BLOOD COUNT 3524722 MCH 32.5 pg 3 Unknown COMPLETE BLOOD COUNT 1505126 MCHC 34.1 g/dL 3 Unknown COMPLETE BLOOD COUNT 8494227 PLT 346 10e9/L 03/05/20 13 Unknown COMPLETE BLOOD COUNT 0747522 MPV 9.5 fL 3 Unknown COMPLETE BLOOD COUNT 4314002 CADEN % 67.6 % 3 Unknown COMPLETE BLOOD COUNT 3848045 LY % 22.1 % 3 Unknown COMPLETE BLOOD COUNT 8657593 MON % 6.6 % 3 Unknown COMPLETE BLOOD COUNT 7790038 EOS % 3.3 % 3 Unknown COMPLETE BLOOD COUNT 2445772 BASO % 0.4 % 3 Unknown COMPLETE BLOOD COUNT 0842353 RDW 14.0 % 3 Unknown COMPLETE BLOOD COUNT 0624962 ABS CADEN 8.59 10e9/L 013 Unknown COMPLETE BLOOD COUNT 4795575 ABS LYMPH 2.81 10e9/L 013 Unknown COMPLETE BLOOD COUNT 7493140 ABS MONO 0.84 10e9/L 013 Unknown COMPLETE BLOOD COUNT 8150327 ABS EOS 0.42 10e9/L 013 Unknown COMPLETE BLOOD COUNT [id number] ABS BASO 0.05 10e9/L 013 Unknown COMPLETE BLOOD COUNT 1365421 RDW-SD 46.0 fL 3 Unknown FREE T4 09843 FREE T4 1.14 NG/DL 03/05/2013 Unknown COMPREHENSIVE METABOLIC 95711 AST 17 U/L 2012 Unknown COMPREHENSIVE METABOLIC 81423 ALT 12 IU/L 2012 Unknown COMPREHENSIVE METABOLIC 77546 BUN 24 MG/DL 2012 Unknown COMPREHENSIVE METABOLIC 99392 ALBUMIN 4.2 GM/DL 2012 Unknown COMPREHENSIVE METABOLIC 67789 CHLORIDE 93 MMOL/L 2012 Unknown COMPREHENSIVE METABOLIC 85062 BILI TOT 0.5 MG/DL 2012 Unknown COMPREHENSIVE METABOLIC 11703 ALK PHOS 75 U/L 2012 Unknown COMPREHENSIVE METABOLIC 77198 SODIUM 141 MMOL/L 03/05 Unknown COMPREHENSIVE METABOLIC 58334 CREATININE 1.36 MG/DL 02/09 Unknown COMPREHENSIVE METABOLIC 37742 CALCIUM 9.2 MG/DL 2012 Unknown COMPREHENSIVE METABOLIC 10415 POTASSIUM 3.1 MMOL/L 03/05 Unknown COMPREHENSIVE METABOLIC 79246 PROT TOT 6.9 GM/DL 2012 Unknown COMPREHENSIVE METABOLIC 80138 Glucose 123 MG/DL 2012 Unknown COMPREHENSIVE METABOLIC 47414 BICARB 36 MMOL/L 2012 Unknown COMPREHENSIVE METABOLIC 94025 ANION GAP 12 MEQ/L 2012 Unknown GFR CALC 4839926 GFR AA 51.0L ML/MIN 03/05/2013 Unknow n GFR CALC 2118457 GFR NON-AA 42.0L ML/MIN 03/05/2013 Unkno wn COMPREHENSIVE METABOLIC 15552 AST 14 U/L 2012 Unknown COMPREHENSIVE METABOLIC 52020 ALT 11 IU/L 2012 Unknown COMPREHENSIVE METABOLIC 09734 BUN 16 MG/DL 2012 Unknown COMPREHENSIVE METABOLIC 35685 ALBUMIN 4.2 GM/DL 2012 Unknown COMPREHENSIVE METABOLIC 42693 CHLORIDE 98 MMOL/L 2012 Unknown COMPREHENSIVE METABOLIC 79472 BILI TOT 0.4 MG/DL 2012 Unknown COMPREHENSIVE METABOLIC 77296 ALK PHOS 77 U/L 2012 Unknown COMPREHENSIVE METABOLIC 14881 SODIUM 139 MMOL/L 09/25 Unknown COMPREHENSIVE METABOLIC 64667 CREATININE 0.86 MG/DL 09/10 Unknown COMPREHENSIVE METABOLIC 70011 CALCIUM 9.5 MG/DL 2012 Unknown COMPREHENSIVE METABOLIC 53761 POTASSIUM 3.8 MMOL/L 09/25 Unknown COMPREHENSIVE METABOLIC 97889 PROT TOT 6.8 GM/DL 2012 Unknown COMPREHENSIVE METABOLIC 05302 Glucose 91 MG/DL 2012 Unknown COMPREHENSIVE METABOLIC 52382 BICARB 32 MMOL/L 2012 Unknown COMPREHENSIVE METABOLIC 42714 ANION GAP 9 MEQ/L 2012 Unknown FREE T4 30493 FREE T4 0.98 NG/DL 09/25/2012 Unknown THYROID STIMULATING HORMONE 21172 TSH 1.736 uIU/ML 09/25/2012 Unknown C-REACTIVE PROTEIN (CRP) QUANT 06821 CRP 2.3 MG/DL 09/25/2012 Unknown COMPLETE BLOOD COUNT 0095190 WBC 11.9 10e9/L 013 Unknown COMPLETE BLOOD COUNT 6322289 RBC 4.87 10e12/L 2012 Unknown COMPLETE BLOOD COUNT 9859420 HGB 15.1 g/dL 3 Unknown COMPLETE BLOOD COUNT 2906360 HCT DET 44.8 % 3 Unknown COMPLETE BLOOD COUNT 3373602 MCV 92.0 fL 3 Unknown COMPLETE BLOOD COUNT 7376908 MCH 31.0 pg 3 Unknown COMPLETE BLOOD COUNT 6675109 MCHC 33.7 g/dL 3 Unknown COMPLETE BLOOD COUNT 0648006 PLT 343 10e9/L 09/25/19 13 Unknown COMPLETE BLOOD COUNT 5240306 MPV 9.0 fL 3 Unknown COMPLETE BLOOD COUNT 5477129 CADEN % 68.2 % 3 Unknown COMPLETE BLOOD COUNT 2614698 LY % 22.4 % 3 Unknown COMPLETE BLOOD COUNT 0036104 MON % 6.4 % 3 Unknown COMPLETE BLOOD COUNT 4751598 EOS % 2.7 % 3 Unknown COMPLETE BLOOD COUNT 9171662 BASO % 0.3 % 3 Unknown COMPLETE BLOOD COUNT 5214542 RDW 13.8 % 3 Unknown COMPLETE BLOOD COUNT 0622165 ABS CADEN 8.12 10e9/L 013 Unknown COMPLETE BLOOD COUNT 8346637 ABS LYMPH 2.67 10e9/L 013 Unknown COMPLETE BLOOD COUNT [id number] ABS MONO 0.76 10e9/L 013 Unknown COMPLETE BLOOD COUNT 8764023 ABS EOS 0.32 10e9/L 013 Unknown COMPLETE BLOOD COUNT 1441971 ABS BASO 0.04 10e9/L 013 Unknown COMPLETE BLOOD COUNT 9869450 RDW-SD 45.6 fL 3 Unknown GFR CALC 5510686 GFR AA >60 ML/MIN 09/25/2012 Unknown GFR CALC 6046242 GFR NON-AA >60 ML/MIN 09/25/2012 Unknown ERYTHROCYTE SEDIMENTATION RATE 98298 ESR 19 MM/HR 05/06/2012 Unknown VITAMIN B 12 FOLIC ACID 29799|13675 VIT B 12 922 PG/ML 04/11 Unknown VITAMIN B 12 FOLIC ACID 68051|95098 FOLIC ACID 13.6 NG/ML Unknown URIC ACID 32650 URIC ACID 7.8 MG/DL 05/06/2012 Unknown COMPLETE BLOOD COUNT 21588 WBC 11.9 10e9/L 012 Unknown COMPLETE BLOOD COUNT 72145 RBC 5.30 10e12/L 2011 Unknown COMPLETE BLOOD COUNT 30568 HGB 16.6 g/dL 2 Unknown COMPLETE BLOOD COUNT 97244 HCT DET 47.2 % 2 Unknown COMPLETE BLOOD COUNT 86521 MCV 89.1 fL 2 Unknown COMPLETE BLOOD COUNT 20443 MCH 31.3 pg 2 Unknown COMPLETE BLOOD COUNT 05956 MCHC 35.2 g/dL 2 Unknown COMPLETE BLOOD COUNT 49765 PLT 362 10e9/L 05/06/20 12 Unknown COMPLETE BLOOD COUNT 79837 MPV 9.4 fL 2 Unknown COMPLETE BLOOD COUNT 18517 CADEN % 68.2 % 2 Unknown COMPLETE BLOOD COUNT 93467 LY % 22.0 % 2 Unknown COMPLETE BLOOD COUNT 60768 MON % 6.9 % 2 Unknown COMPLETE BLOOD COUNT 37271 EOS % 2.6 % 2 Unknown COMPLETE BLOOD COUNT 84267 BASO % 0.3 % 2 Unknown COMPLETE BLOOD COUNT 14849 RDW 12.8 % 2 Unknown COMPLETE BLOOD COUNT 28434 ABS CADEN 8.12 10e9/L 012 Unknown COMPLETE BLOOD COUNT 37138 ABS LYMPH 2.62 10e9/L 012 Unknown COMPLETE BLOOD COUNT 09080 ABS MONO 0.82 10e9/L 012 Unknown COMPLETE BLOOD COUNT 30816 ABS EOS 0.31 10e9/L 012 Unknown COMPLETE BLOOD COUNT 88738 ABS BASO 0.04 10e9/L 012 Unknown COMPLETE BLOOD COUNT 80803 RDW-SD 41.5 fL 2 Unknown GFR CALC [id number] GFR AA >60 ML/MIN 05/06/2012 Unknown GFR CALC 3581951 GFR NON-AA 58.0L ML/MIN 05/06/2012 Unkno wn FREE T4 87740 FREE T4 1.15 NG/DL 05/06/2012 Unknown THYROID STIMULATING HORMONE 88206 TSH 1.568 uIU/ML 05/06/2012 Unknown COMPREHENSIVE METABOLIC 19904 AST 20 U/L 2011 Unknown COMPREHENSIVE METABOLIC 23699 ALT 12 IU/L 2011 Unknown COMPREHENSIVE METABOLIC 77765 BUN 20 MG/DL 2011 Unknown COMPREHENSIVE METABOLIC 66650 ALBUMIN 4.5 GM/DL 2011 Unknown COMPREHENSIVE METABOLIC 24608 CHLORIDE 91 MMOL/L 2011 Unknown COMPREHENSIVE METABOLIC 06463 BILI TOT 0.4 MG/DL 2011 Unknown COMPREHENSIVE METABOLIC 28487 ALK PHOS 73 U/L 2011 Unknown COMPREHENSIVE METABOLIC 93714 SODIUM 139 MMOL/L 05/06 Unknown COMPREHENSIVE METABOLIC 70372 CREATININE 1.02 MG/DL 04/11 Unknown COMPREHENSIVE METABOLIC 29249 CALCIUM 9.7 MG/DL 2011 Unknown COMPREHENSIVE METABOLIC 41116 POTASSIUM 3.1 MMOL/L 05/06 Unknown COMPREHENSIVE METABOLIC 76474 PROT TOT 7.3 GM/DL 2011 Unknown COMPREHENSIVE METABOLIC 07062 Glucose 118 MG/DL 2011 Unknown COMPREHENSIVE METABOLIC 46515 BICARB 33 MMOL/L 2011 Unknown COMPREHENSIVE METABOLIC 79946 ANION GAP 15 MEQ/L 2011 Unknown Procedures Procedure Codes Date ROUTINE VENIPUNCTURE CPT-4: 29486 09/29/2019 URINALYSIS NONAUTO W/O SCOPE CPT-4: 76782 09/29/2019 COMPREHEN METABOLIC PANEL CPT-4: 74289 09/29/2019 LIPID PANEL CPT-4: 18646 09/29/2019 A1C HPLC CPT-4: 05373 09/29/2019 ASSAY OF FREE THYROXINE CPT-4: 00739 09/29/2019 ASSAY THYROID STIM HORMONE CPT-4: 45077 09/29/2019 COMPLETE CBC W/AUTO DIFF WBC CPT-4: 52726 09/29/2019 URINALYSIS NONAUTO W/O SCOPE CPT-4: 87387 09/30/2018 MICROALBUMIN QUANTITATIVE CPT-4: 13420 09/30/2018 CEFTRIAXONE SODIUM INJECTION CPT-4: J0696 06/19/2018 THER/PROPH/DIAG INJ SC/IM CPT-4: 15274 06/19/2018 CEFTRIAXONE SODIUM INJECTION CPT-4: J0696 06/17/2018 THER/PROPH/DIAG INJ SC/IM CPT-4: 75223 06/17/2018 THER/PROPH/DIAG INJ SC/IM CPT-4: 28801 05/16/2018 KETOROLAC TROMETHAMINE INJ CPT-4: J1885 05/16/2018 ONDANSETRON HCL INJECTION CPT-4: J2405 05/16/2018 THER/PROPH/DIAG INJ SC/IM CPT-4: 97221 05/16/2018 ROUTINE VENIPUNCTURE CPT-4: 96855 03/20/2018 COMPREHEN METABOLIC PANEL CPT-4: 10738 03/20/2018 DEXAMETHASONE SODIUM PHOS CPT-4: J1100 02/11/2018 THER/PROPH/DIAG INJ SC/IM CPT-4: 96071 02/11/2018 TRIAMCINOLONE ACET INJ NOS CPT-4: J3301 02/11/2018 CEFTRIAXONE SODIUM INJECTION CPT-4: J0696 02/01/2018 THER/PROPH/DIAG INJ SC/IM CPT-4: 88144 02/01/2018 CEFTRIAXONE SODIUM INJECTION CPT-4: J0696 01/30/2018 THER/PROPH/DIAG INJ SC/IM CPT-4: 15193 01/30/2018 ROUTINE VENIPUNCTURE CPT-4: 89544 12/10/2017 ASSAY OF FREE THYROXINE CPT-4: 97876 12/10/2017 ASSAY THYROID STIM HORMONE CPT-4: 80192 12/10/2017 COMPREHEN METABOLIC PANEL CPT-4: 95116 12/10/2017 COMPLETE CBC W/AUTO DIFF WBC CPT-4: 92975 12/10/2017 LIPID PANEL CPT-4: 24986 12/10/2017 A1C HPLC CPT-4: 55656 12/10/2017 CEFTRIAXONE SODIUM INJECTION CPT-4: J0696 12/10/2017 THER/PROPH/DIAG INJ SC/IM CPT-4: 36058 12/10/2017 CEFTRIAXONE SODIUM INJECTION CPT-4: J0696 12/07/2017 THER/PROPH/DIAG INJ SC/IM CPT-4: 97565 12/07/2017 DEXAMETHASONE SODIUM PHOS CPT-4: J1100 12/07/2017 THER/PROPH/DIAG INJ SC/IM CPT-4: 13500 12/07/2017 CEFTRIAXONE SODIUM INJECTION CPT-4: J0696 10/08/2017 THER/PROPH/DIAG INJ SC/IM CPT-4: 36188 10/08/2017 CEFTRIAXONE SODIUM INJECTION CPT-4: J0696 09/21/2017 THER/PROPH/DIAG INJ SC/IM CPT-4: 32372 09/21/2017 CEFTRIAXONE SODIUM INJECTION CPT-4: J0696 09/20/2017 THER/PROPH/DIAG INJ SC/IM CPT-4: 34540 09/20/2017 REMOVAL OF NAIL PLATE CPT-4: 56451 08/29/2017 THER/PROPH/DIAG INJ SC/IM CPT-4: 00030 08/29/2017 TRIAMCINOLONE ACET INJ NOS CPT-4: J3301 08/29/2017 CEFTRIAXONE SODIUM INJECTION CPT-4: J0696 08/29/2017 THER/PROPH/DIAG INJ SC/IM CPT-4: 50170 08/29/2017 DESTRUCT PREMALG LESION (Cryosurgery) CPT-4: 91927 ROUTINE VENIPUNCTURE CPT-4: 97231 06/27/2017 ASSAY OF FREE THYROXINE CPT-4: 81177 06/27/2017 ASSAY THYROID STIM HORMONE CPT-4: 97933 06/27/2017 COMPREHEN METABOLIC PANEL CPT-4: 48785 06/27/2017 COMPLETE CBC W/AUTO DIFF WBC CPT-4: 57308 06/27/2017 EXC TR-EXT B9+REECE 0.5 CM< CPT-4: 01567 01/24/2017 THER/PROPH/DIAG INJ SC/IM CPT-4: 26239 08/02/2016 DEXAMETHASONE SODIUM PHOS CPT-4: J1100 08/02/2016 DESTRUCT PREMALG LESION (Cryosurgery) CPT-4: 19955 EXC TR-EXT B9+REECE 0.5 CM< CPT-4: 85544 08/01/2016 AEROBIC WOUND CULTURE & STN CPT-4: 93659 07/06/2016 CEFTRIAXONE SODIUM INJECTION CPT-4: J0696 05/25/2016 THER/PROPH/DIAG INJ SC/IM CPT-4: 81028 05/25/2016 THER/PROPH/DIAG INJ SC/IM CPT-4: 92673 04/26/2016 DEXAMETHASONE SODIUM PHOS CPT-4: J1100 04/26/2016 CEFTRIAXONE SODIUM INJECTION CPT-4: J0696 04/26/2016 THER/PROPH/DIAG INJ SC/IM CPT-4: 38087 04/26/2016 THER/PROPH/DIAG INJ SC/IM CPT-4: 88711 02/09/2016 TRIAMCINOLONE ACET INJ NOS CPT-4: J3301 02/09/2016 URINALYSIS NONAUTO W/O SCOPE CPT-4: 40208 01/24/2016 URINE CULTURE/ COLONY COUNT CPT-4: 65790 01/24/2016 THER/PROPH/DIAG INJ SC/IM CPT-4: 01222 12/08/2015 TRIAMCINOLONE ACET INJ NOS CPT-4: J3301 12/08/2015 THER/PROPH/DIAG INJ SC/IM CPT-4: 78651 10/07/2015 TRIAMCINOLONE ACET INJ NOS CPT-4: J3301 10/07/2015 DESTRUCT PREMALG LESION (Cryosurgery) CPT-4: 57789 THER/PROPH/DIAG INJ SC/IM CPT-4: 25778 03/16/2015 METHYLPREDNISOLONE 40 MG INJ CPT-4: J1030 03/16/2015 DESTRUCT PREMALG LESION (Cryosurgery) CPT-4: 16754 THER/PROPH/DIAG INJ SC/IM CPT-4: 24929 09/11/2014 METHYLPREDNISOLONE 40 MG INJ CPT-4: J1030 09/11/2014 TRIAMCINOLONE ACET INJ NOS CPT-4: J3301 09/11/2014 CEFTRIAXONE SODIUM INJECTION CPT-4: J0696 09/11/2014 THER/PROPH/DIAG INJ SC/IM CPT-4: 23794 09/11/2014 ROUTINE VENIPUNCTURE CPT-4: 05039 08/27/2014 COMPREHEN METABOLIC PANEL CPT-4: 11290 08/27/2014 COMPLETE CBC W/AUTO DIFF WBC CPT-4: 76066 08/27/2014 LIPID PANEL CPT-4: 99666 08/27/2014 ROUTINE VENIPUNCTURE CPT-4: 29449 07/21/2014 ASSAY OF AMYLASE CPT-4: 17858 07/21/2014 ASSAY OF LIPASE CPT-4: 93862 07/21/2014 THER/PROPH/DIAG INJ SC/IM CPT-4: 16534 07/15/2014 TRIAMCINOLONE ACET INJ NOS CPT-4: J3301 07/15/2014 ROUTINE VENIPUNCTURE CPT-4: 85250 05/14/2014 ASSAY OF FREE THYROXINE CPT-4: 84643 05/14/2014 ASSAY THYROID STIM HORMONE CPT-4: 52051 05/14/2014 COMPREHEN METABOLIC PANEL CPT-4: 90247 05/14/2014 COMPLETE CBC W/AUTO DIFF WBC CPT-4: 59713 05/14/2014 LIPID PANEL CPT-4: 31977 05/14/2014 CEFTRIAXONE SODIUM INJECTION CPT-4: J0696 04/21/2014 THER/PROPH/DIAG INJ SC/IM CPT-4: 55664 04/21/2014 THER/PROPH/DIAG INJ SC/IM CPT-4: 85218 04/21/2014 TRIAMCINOLONE ACET INJ NOS CPT-4: J3301 04/21/2014 THER/PROPH/DIAG INJ SC/IM CPT-4: 73572 03/04/2014 METHYLPREDNISOLONE 40 MG INJ CPT-4: J1030 03/04/2014 TRIAMCINOLONE ACET INJ NOS CPT-4: J3301 03/04/2014 CEFTRIAXONE SODIUM INJECTION CPT-4: J0696 03/04/2014 THER/PROPH/DIAG INJ SC/IM CPT-4: 96574 03/04/2014 TDAP VACCINE 7 YRS/> IM CPT-4: 25307 02/27/2014 IMMUNIZATION ADMIN CPT-4: 91534 02/27/2014 DESTRUCT PREMALG LESION (Cryosurgery) CPT-4: 56317 DESTRUCT PREMALG LES 2-14 CPT-4: 12474 01/13/2014 THER/PROPH/DIAG INJ SC/IM CPT-4: 83945 10/21/2013 METHYLPREDNISOLONE 40 MG INJ CPT-4: J1030 10/21/2013 TRIAMCINOLONE ACET INJ NOS CPT-4: J3301 10/21/2013 CEFTRIAXONE SODIUM INJECTION CPT-4: J0696 08/27/2013 THER/PROPH/DIAG INJ SC/IM CPT-4: 11696 08/27/2013 THER/PROPH/DIAG INJ SC/IM CPT-4: 63178 08/27/2013 METHYLPREDNISOLONE 40 MG INJ CPT-4: J1030 08/27/2013 TRIAMCINOLONE ACET INJ NOS CPT-4: J3301 08/27/2013 THER/PROPH/DIAG INJ SC/IM CPT-4: 83912 06/23/2013 METHYLPREDNISOLONE 40 MG INJ CPT-4: J1030 06/23/2013 TRIAMCINOLONE ACET INJ NOS CPT-4: J3301 06/23/2013 THER/PROPH/DIAG INJ SC/IM CPT-4: 55486 05/26/2013 METHYLPREDNISOLONE 40 MG INJ CPT-4: J1030 05/26/2013 TRIAMCINOLONE ACET INJ NOS CPT-4: J3301 05/26/2013 ROUTINE VENIPUNCTURE CPT-4: 15862 03/05/2013 ASSAY OF FREE THYROXINE CPT-4: 39476 03/05/2013 ASSAY THYROID STIM HORMONE CPT-4: 24879 03/05/2013 [facility]: 71721 03/05/2013 COMPLETE CBC W/AUTO DIFF WBC CPT-4: 78116 03/05/2013 A1C GLYCOSYLATED HEMOGLOBIN TEST CPT-4: 25643 013 DRAIN/INJECT JOINT/BURSA CPT-4: 01052 12/04/2012 METHYLPREDNISOLONE 40 MG INJ CPT-4: J1030 12/04/2012 TRIAMCINOLONE ACET INJ NOS CPT-4: J3301 12/04/2012 CEFTRIAXONE SODIUM INJECTION CPT-4: J0696 11/21/2012 THER/PROPH/DIAG INJ SC/IM CPT-4: 92471 11/21/2012 THER/PROPH/DIAG INJ SC/IM CPT-4: 97725 10/14/2012 METHYLPREDNISOLONE 40 MG INJ CPT-4: J1030 10/14/2012 TRIAMCINOLONE ACET INJ NOS CPT-4: J3301 10/14/2012 URINALYSIS NONAUTO W/O SCOPE CPT-4: 90694 09/27/2012 ROUTINE VENIPUNCTURE CPT-4: 30723 09/25/2012 ASSAY OF FREE THYROXINE CPT-4: 23858 09/25/2012 ASSAY THYROID STIM HORMONE CPT-4: 27008 09/25/2012 COMPREHEN METABOLIC PANEL CPT-4: 05955 09/25/2012 COMPLETE CBC W/AUTO DIFF WBC CPT-4: 23035 09/25/2012 C-REACTIVE PROTEIN CPT-4: 44794 09/25/2012 THER/PROPH/DIAG INJ SC/IM CPT-4: 03239 08/29/2012 METHYLPREDNISOLONE 40 MG INJ CPT-4: J1030 08/29/2012 TRIAMCINOLONE ACET INJ NOS CPT-4: J3301 08/29/2012 DESTRUCT PREMALG LESION (Cryosurgery) CPT-4: 91058 THER/PROPH/DIAG INJ SC/IM CPT-4: 98635 05/06/2012 METHYLPREDNISOLONE 40 MG INJ CPT-4: J1030 05/06/2012 TRIAMCINOLONE ACET INJ NOS CPT-4: J3301 05/06/2012 VITAMIN B 12 FOLIC ACID CPT-4: 35034|24610 05/06/2012 RBC SED RATE AUTOMATED CPT-4: 26882 05/06/2012 ROUTINE VENIPUNCTURE CPT-4: 94420 05/06/2012 ASSAY OF FREE THYROXINE CPT-4: 44922 05/06/2012 ASSAY THYROID STIM HORMONE CPT-4: 47133 05/06/2012 COMPREHEN METABOLIC PANEL CPT-4: 33229 05/06/2012 COMPLETE CBC W/AUTO DIFF WBC CPT-4: 81998 05/06/2012 ASSAY OF BLOOD/URIC ACID CPT-4: 17354 05/06/2012 THER/PROPH/DIAG INJ SC/IM CPT-4: 83696 03/19/2012 KETOROLAC TROMETHAMINE INJ CPT-4: J1885 03/19/2012 KETOROLAC TROMETHAMINE INJ CPT-4: J1885 01/30/2012 THER/PROPH/DIAG INJ SC/IM CPT-4: 69134 01/30/2012 PROMETHAZINE HCL INJECTION CPT-4: J2550 01/30/2012 THER/PROPH/DIAG INJ SC/IM CPT-4: 63586 01/24/2012 METHYLPREDNISOLONE 40 MG INJ CPT-4: J1030 01/24/2012 TRIAMCINOLONE ACET INJ NOS CPT-4: J3301 01/24/2012 THER/PROPH/DIAG INJ SC/IM CPT-4: 34921 09/13/2011 KETOROLAC TROMETHAMINE INJ CPT-4: J1885 09/13/2011 THER/PROPH/DIAG INJ SC/IM CPT-4: 47761 09/13/2011 PROMETHAZINE HCL INJECTION CPT-4: J2550 09/13/2011 CEFTRIAXONE SODIUM INJECTION CPT-4: J0696 07/20/2011 THER/PROPH/DIAG INJ SC/IM CPT-4: 64679 07/20/2011 THER/PROPH/DIAG INJ SC/IM CPT-4: 42223 07/20/2011 METHYLPREDNISOLONE INJECTION CPT-4: J2930 07/20/2011 URINALYSIS NONAUTO W/O SCOPE CPT-4: 39632 05/09/2011 CEFTRIAXONE SODIUM INJECTION CPT-4: J0696 05/09/2011 THER/PROPH/DIAG INJ SC/IM CPT-4: 25483 05/09/2011 THER/PROPH/DIAG INJ SC/IM CPT-4: 71563 05/09/2011 PROMETHAZINE HCL INJECTION CPT-4: J2550 05/09/2011 HYDRATION IV INFUSION INIT CPT-4: 96712 05/09/2011 DESTRUCT PREMALG LESION (Cryosurgery) CPT-4: 97203 DESTRUCT PREMALG LES 2-14 CPT-4: 97606 07/19/2010 REMOVAL OF SKIN TAGS <W/15 CPT-4: 37426 05/30/2010 THER/PROPH/DIAG INJ SC/IM CPT-4: 80026 04/05/2010 CEFTRIAXONE SODIUM INJECTION CPT-4: J0696 04/05/2010 TRIAMCINOLONE ACET INJ NOS CPT-4: J3301 04/05/2010 METHYLPREDNISOLONE 40 MG INJ CPT-4: J1030 04/05/2010 THER/PROPH/DIAG INJ SC/IM CPT-4: 63285 04/05/2010 TRIAMCINOLONE ACET INJ NOS CPT-4: J3301 03/09/2010 METHYLPREDNISOLONE 40 MG INJ CPT-4: J1030 03/09/2010 THER/PROPH/DIAG INJ SC/IM CPT-4: 00033 03/09/2010 THER/PROPH/DIAG INJ SC/IM CPT-4: 16489 03/09/2010 CEFTRIAXONE SODIUM INJECTION CPT-4: J0696 03/09/2010 [...] 1: 132/80 Code: 8480-6 BMI: 35.8 Code: 27593-8 Heart Rate 1: 88 bpm Height: 5'4" Respiratory Rate: 20 bpm SpO2: 95% Tempera ture: 36.9 (C) / 98.5 (F) Weight: 210 lbs 05/28/2019 Blood Pressure 1: 126/82 Code: 8480-6 BMI: 35.0 Code: 50031-9 Heart Rate 1: 88 bpm Height: 5'4" [...] 1: 128/90 Code: 8480-6 BMI: 37.2 Code: 11317-9 Heart Rate 1: 84 bpm Height: 5'4" Respiratory Rate: 20 bpm SpO2: 95% Tempera ture: 36.6 (C) / 97.8 (F) Weight: 217 lbs 08/27/2018 Blood Pressure 1: 128/88 Code: 8480-6 BMI: 38.3 Code: 05405-0 Heart Rate 1: 84 bpm Height: 5'4" [...] 1: 119/72 Code: 8480-6 BMI: 37.4 Code: 78803-3 Heart Rate 1: 82 bpm Height: 5'4" Respiratory Rate: 12 bpm SpO2: 94% Tempera ture: 35.2 (C) / 95.4 (F) Weight: 218 lbs 12/18/2017 Blood Pressure 1: 128/86 Code: 8480-6 BMI: 37.8 Code: 13630-8 Heart Rate 1: 84 bpm Height: 5'4" [...] 1: 128/82 Code: 8480-6 BMI: 35.5 Code: 00069-8 Heart Rate 1: 84 bpm Height: 5'4" [...] 1: 128/82 Code: 8480-6 BMI: 30.2 Code: 98382-2 Heart Rate 1: 80 bpm Height: 5'4" [...] 1: 128/86 Code: 8480-6 BMI: 32.8 Code: 05426-4 Heart Rate 1: 66 bpm Height: 5'4" Respiratory Rate: 18 bpm Temperature: 36 .3 (C) / 97.3 (F) Weight: 191 lbs 06/23/2013 Blood Pressure 1: 132/94 Code: 8480-6 BMI: 34.0 Code: 52385-5 Heart Rate 1: 84 bpm Height: 5'4" Respiratory Rate: 20 bpm Temperature: 36 .8 (C) / 98.2 (F) Weight: 198 lbs 05/26/2013 Blood Pressure 1: 114/80 Code: 8480-6 BMI: 35.0 Code: 38228-4 Heart Rate 1: 80 bpm Height: 5'4" Respiratory Rate: 20 bpm Temperature: 36 .4 (C) / 97.6 (F) Weight: 204 lbs 04/16/2013 Blood Pressure 1: 114/82 Code: 8480-6 BMI: 36.7 Code: 30334-4 Heart Rate 1: 84 bpm Height: 5'4" Respiratory Rate: 20 bpm Temperature: 36 .7 (C) / 98.0 (F) Weight: 214 lbs 03/05/2013 Blood Pressure 1: 136/90 Code: 8480-6 BMI: 37.1 Code: 75021-8 Heart Rate 1: 84 bpm Height: 5'4" [...] 1: 168/114 Code: 8480-6 BMI: 36.2 Code: 93166-1 Heart Rate 1: 104 bpm Height: 5'4" Respiratory Rate: 20 bpm Temperature: 36 .8 (C) / 98.2 (F) Weight: 211 lbs 11/22/2012 Blood Pressure 1: 128/90 Code: 8480-6 Heart Rate 1: 88 bpm Respiratory Rate: 20 bpm SpO2: 96% Temperature: 36.8 (C) / 98.2 (F) 11/21/2012 Blood Pressure 1: 146/100 Code: 8480-6 BMI: 35.7 Code: 06384-5 Heart Rate 1: 96 bpm Height: 5'4" [...] 1: 138/100 Code: 8480-6 BMI: 35.7 Code: 08807-5 Heart Rate 1: 96 bpm Height: 5'4" Respiratory Rate: 20 bpm Temperature: 36 .8 (C) / 98.2 (F) Weight: 208 lbs 05/06/2012 Blood Pressure 1: 154/102 Code: 8480-6 BMI: 34.7 Code: 86511-3 Heart Rate 1: 116 bpm Height: 5'4" Respiratory Rate: 20 bpm Temperature: 36 .8 (C) / 98.2 (F) Weight: 202 lbs 04/03/2012 Blood Pressure 1: 134/94 Code: 8480-6 BMI: 34.8 Code: 66851-9 Heart Rate 1: 108 bpm Height: 5'4" Respiratory Rate: 20 bpm Temperature: 36 .8 (C) / 98.2 (F) Weight: 203 lbs 03/19/2012 Blood Pressure 1: 148/106 Code: 8480-6 BMI: 35.0 Code: 48934-2 Heart Rate 1: 100 bpm Height: 5'4" Respiratory Rate: 20 bpm Temperature: 36 .6 (C) / 97.9 (F) Weight: 204 lbs 02/22/2012 Blood Pressure 1: 146/94 Code: 8480-6 He art Rate 1: 88 bpm 02/21/2012 Blood Pressure 1: 172/120 Code: 8480-6 B lood Pressure 2: 152/106 Code: 8480-6 Heart Rate 1: 116 bpm 02/20/2012 Blood Pressure 1: 160/100 Code: 8480-6 BMI: 32.0 Code: 64353-6 Heart Rate 1: 84 bpm Height: 5'7" Temperature: 36.5 (C) / 97.7 (F) Weight: 204 lbs 01/30/2012 Blood Pressure 1: 152/110 Code: 8480-6 BMI: 32.0 Code: 84752-2 Heart Rate 1: 116 bpm Height: 5'7" Respiratory Rate: 20 bpm Temperature: 37 .0 (C) / 98.6 (F) Weight: 204 lbs 01/24/2012 Blood Pressure 1: 146/100 Code: 8480-6 BMI: 32.0 Code: 60412-4 Heart Rate 1: 100 bpm Height: 5'7" Respiratory Rate: 20 bpm Temperature: 36 .7 (C) / 98.0 (F) Weight: 204 lbs 01/10/2012 Blood Pressure 1: 156/94 Code: 8480-6 BMI: 32.6 Code: 97195-6 Heart Rate 1: 72 bpm Height: 5'7" Respiratory Rate: 20 bpm Temperature: 36 .8 (C) / 98.2 (F) Weight: 208 lbs 12/11/2011 Blood Pressure 1: 146/100 Code: 8480-6 Heart Rat e 1: 116 bpm Height: 5'7" Respiratory Rate: 20 bpm Temperature: 36.9 (C) / 98.4 (F) We ight: 11/09/2011 Blood Pressure 1: 148/96 Code: 8480-6 BMI: 32.1 Code: 66591-6 Heart Rate 1: 116 bpm Height: 5'7" Respiratory Rate: 20 bpm Temperature: 36 .7 (C) / 98.0 (F) Weight: 205 lbs 09/13/2011 Blood Pressure 1: 126/88 Code: 8480-6 Heart Rate 1: 88 bpm Height: 5'7" Respiratory Rate: 20 bpm Temperature: 36.9 (C) / 98.4 (F) We ight: 08/31/2011 Blood Pressure 1: 118/82 Code: 8480-6 BMI: 32.0 Code: 60606-7 Heart Rate 1: 80 bpm Height: 5'7" Temperature: 36.4 (C) / 97.6 (F) Weight: 204 lbs 07/06/2011 Blood Pressure 1: 128/86 Code: 8480-6 BMI: 30.9 Code: 03381-8 Heart Rate 1: 92 bpm Height: 5'7" Respiratory Rate: 20 bpm Temperature: 36 .9 (C) / 98.4 (F) Weight: 197 lbs 06/06/2011 Blood Pressure 1: 112/74 Code: 8480-6 BMI: 31.0 Code: 85763-4 Heart Rate 1: 72 bpm Height: 5'7" [...] 1: 128/92 Code: 8480-6 BMI: 33.6 Code: 00848-9 Heart Rate 1: 104 bpm Height: 5'4" [...] Check-up Encounters Encounter Performer Location Codes Date ([id number]) OFFICE/OUTPATIENT VISIT EST Diagnosis: Type 2 diabetes mellitus with hyperglycemia[ICD10: E11.65] María Elena JUARES LucioJj [address] CPT-4: 90593 11/20/2019 ([id number]) OFFICE/OUTPATIENT VISIT EST Diagnosis: Ingrowing nail[ICD10: L60.0] Diagnosis: Type 2 diabetes mellitus with hyperglycemia[ICD10: E11.65] Kathleen Zuniga MARÍA ELENA LucioJj [address] CPT-4: 88345 10/07/2019 ([id number]) OFFICE/OUTPATIENT VISIT EST Diagnosis: DM w/o complication type II, uncontrolled[ICD10: E11.65] Diagnosis: Hypertriglyceridemia[ICD10: E78.1] Diagnosis: Essential hypertension[ICD10: I10] María Elena JEAN [place] [employer] CPT-4: 69259 09/30/2019 ([id number]) NURSE/OUTPATIENT VISIT EST Diagnosis: Essential (primary) hypertension[ICD10: I10] Diagnosis: Cervicalgia[ICD10: M54.2] Diagnosis: Hyperglycemia, unspecified[ICD10: R73.9] Diagnosis: Mixed hyperlipidemia[ICD10: E78.2] María Elena JEAN [place] [employer] CPT-4: 80476 09/29/2019 ([id number]) OFFICE/OUTPATIENT VISIT EST Diagnosis: Essential (primary) hypertension[ICD10: I10] Diagnosis: Fall from bed, sequela[ICD10: W06.XXXS] María Elena Hicks [facility] [address] CPT-4: 56922 05/28/2019 ([id number]) NURSE/OUTPATIENT VISIT EST Diagnosis: Essential (primary) hypertension[ICD10: I10] María Elena Hicks [address] CPT-4: 17292 05/19/2019 ([id number]) OFFICE/OUTPATIENT VISIT EST Diagnosis: Essential (primary) hypertension[ICD10: I10] Diagnosis: Type 2 diabetes mellitus with hyperglycemia[ICD10: E11.65] Diagnosis: Intervertebral disc disorders with radiculopathy, 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] Diagnosis: Hormone replacement therapy[ICD10: Z79.890] María Elena APPIAH [facility] CPT-4: 23984 01/22/2019 ([id number]) OFFICE/OUTPATIENT VISIT EST Diagnosis: Essential (primary) hypertension[ICD10: I10] Diagnosis: Type 2 diabetes mellitus with hyperglycemia[ICD10: E11.65] María Elena APPIAH DO [facility] CPT-4: 53749 09/30/2018 ([id number]) OFFICE/OUTPATIENT VISIT EST Diagnosis: Pain in left elbow[ICD10: M25.522] Diagnosis: Acute stress reaction[ICD10: F43.0] Diagnosis: Primary insomnia[ICD10: F51.01] Diagnosis: Abnormal weight gain[ICD10: R63.5] María Elena Seamusmindivictorino KYLAHLESLIE APPIAH [employer] [facility] CPT-4: 62717 08/27/2018 ([id number]) OFFICE/OUTPATIENT VISIT EST Diagnosis: Acute recurrent sinusitis, unspecified[ICD10: J01.91] Diagnosis: Follicular disorder, unspecified[ICD10: L73.9] Diagnosis: Tinea corporis[ICD10: B35.4] María Elena APPIAH [employer] CPT-4: 30815 08/09/2018 ([id number]) OFFICE/OUTPATIENT VISIT EST Diagnosis: Tinea corporis[ICD10: B35.4] Diagnosis: Anxiety disorder, unspecified[ICD10: F41.9] Diagnosis: Menopausal and female climacteric states[ICD10: N95.1] María Elena ELLISLINE Fabiola APPIAH [employer] CPT-4: 11764 07/22/2018 ([id number]) NURSE/OUTPATIENT VISIT EST Diagnosis: Cellulitis of right toe[ICD10: L03.031] María Elenamarcella Waymindivictorino BRAUNALCIDES Fabiola APPIAH [employer] CPT-4: 01882 06/19/2018 ([id number]) OFFICE/OUTPATIENT VISIT EST Diagnosis: Cellulitis of right toe[ICD10: L03.031] Kathleen APPIAH DO [facility] CPT-4: 75162 06/17/2018 ([id number]) OFFICE/OUTPATIENT VISIT EST Diagnosis: Migraine without aura, intractable, without status migrainosus[ICD10: G43.019] Diagnosis: Zoster without complications[ICD10: B02.9] Kathleen APPIAH DO [facility] CPT-4: 65109 05/16/2018 ([id number]) OFFICE/OUTPATIENT VISIT EST Diagnosis: Cellulitis of right lower limb[ICD10: L03.115] Kathleen APPIAH DO [facility] CPT-4: 23479 03/20/2018 ([id number]) OFFICE/OUTPATIENT VISIT EST Diagnosis: Cellulitis of right lower limb[ICD10: L03.115] Kathleen APPIAH DO [facility] CPT-4: 67615 03/18/2018 ([id number]) OFFICE/OUTPATIENT VISIT EST Diagnosis: Cellulitis of right lower limb[ICD10: L03.115] Kathleen APPIAH DO [facility] CPT-4: 15713 03/15/2018 ([id number]) OFFICE/OUTPATIENT VISIT EST Diagnosis: Acute sinusitis, unspecified[ICD10: J01.90] Kathleen APPIAH DO [facility] CPT-4: 71790 02/11/2018 ([id number]) NURSE/OUTPATIENT VISIT EST Diagnosis: Otitis media, unspecified, right ear[ICD10: H66.91] María Elena APPIAH DO [facility] CPT-4: 44302 02/01/2018 ([id number]) OFFICE/OUTPATIENT VISIT EST Diagnosis: Acute suppurative otitis media without spontaneous rupture of ear drum, left ear[ICD10: H66.002] Diagnosis: Abnormal weight gain[ICD10: R63.5] Diagnosis: Intervertebral disc disorders with radiculopathy, 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] Kathleen APPIAH DO [facility] CPT-4: 99 214 01/30/2018 ([id number]) PREV VISIT EST AGE 40-64 Diagnosis: Encounter for general adult medical examination without abnormal findings[ICD10: Z00.00] Diagnosis: Essential (primary) hypertension[ICD10: I10] Diagnosis: Mixed hyperlipidemia[ICD10: E78.2] Diagnosis: Type 2 diabetes mellitus with hyperglycemia[ICD10: E11.65] Diagnosis: 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] María Elena APPIAH [employer] [facility] CPT-4: 79217 12/18/2017 ([id number]) OFFICE/OUTPATIENT VISIT EST Diagnosis: Cellulitis of right toe[ICD10: L03.031] Diagnosis: Mixed hyperlipidemia[ICD10: E78.2] Diagnosis: Essential (primary) hypertension[ICD10: I10] Diagnosis: Hyperglycemia, unspecified[ICD10: R73.9] Diagnosis: Nontoxic goiter, 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] María Elena ORTA [employer] [facility] CPT-4: 55952 12/10/2017 ([id number]) OFFICE/OUTPATIENT VISIT EST Diagnosis: Cellulitis of right toe[ICD10: L03.031] Diagnosis: Acute sinusitis, unspecified[ICD10: J01.90] Kathleen APPIAH [employer] [facility] CPT-4: 47068 12/07/2017 OFFICE/OUTPATIENT VISIT EST Diagnosis: Acute maxillary sinusitis, unspecified[ICD10: J01.00] Kathleen APPIAH [employer] [facility] CPT-4: 50627 10/08/2017 ([id number]) OFFICE/OUTPATIENT VISIT EST Diagnosis: Cellulitis of left toe[ICD10: L03.032] María Elena Hicks [employer] [facility] CPT-4: 06986 09/21/2017 ([id number]) OFFICE/OUTPATIENT VISIT EST Diagnosis: Insomnia, unspecified[ICD10: G47.00] Diagnosis: Major depressive disorder, single episode, unspecified[ICD10: F32.9] Diagnosis: Anxiety disorder, unspecified[ICD10: F41.9] Diagnosis: Cellulitis of left toe[ICD10: L03.032] Diagnosis: Snoring[ICD10: R06.83] Kathleen APPIAH [employer] [facility] CPT-4: 32730 09/20/2017 ([id number]) OFFICE/OUTPATIENT VISIT EST Diagnosis: Cellulitis of left toe[ICD10: L03.032] María Elena Appiah MARLIN APPIAH DO [facility] CPT-4: 61743 07/19/2017 OFFICE/OUTPATIENT VISIT EST Diagnosis: Chronic sinusitis, unspecified[ICD10: J32.9] Diagnosis: Generalized hyperhidrosis[ICD10: R61] Kathleen APPIAH DO [facility] CPT-4: 97331 06/27/2017 ([id number]) OFFICE/OUTPATIENT VISIT EST Diagnosis: Intervertebral disc disorders with radiculopathy, 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] Diagnosis: Primary insomnia[ICD10: F51.01] Diagnosis: Other fatigue[ICD10: R53.83] María Elena Seamsudawn MARÍA ELENA Lucio[employer]j TD [employer] CPT-4: 38264 04/10/2017 ([id number]) OFFICE/OUTPATIENT VISIT EST Diagnosis: Primary insomnia[ICD10: F51.01] Diagnosis: Localized edema[ICD10: R60.0] Diagnosis: 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] María Elena Seamusdawn MARÍA ELENA [employer]io[employer]j TD [facility] CPT-4: 69905 12/13/2016 ([id number]) OFFICE/OUTPATIENT VISIT EST Diagnosis: Primary insomnia[ICD10: F51.01] Diagnosis: Cyanosis[ICD10: R23.0] María Elena JUARES Lucio[employer]j [employer] CPT-4: 58609 11/01/2016 ([id number]) PREV VISIT EST AGE 40-64 Diagnosis: Encounter for gynecological examination (general) (routine) without abnormal findings[ICD10: Z01.419] Diagnosis: Encounter for routine child health examination without abnormal findings[ICD10: Z00.129] María Elena MONTEROQUELINE LucioJj TD [facility] CPT-4: 43428 10/17/2016 ([id number]) OFFICE/OUTPATIENT VISIT EST Diagnosis: Other seasonal allergic rhinitis[ICD10: J30.2] María Elena JUARES LuicoJj TD [facility] CPT-4: 08937 10/10/2016 ([id number]) OFFICE/OUTPATIENT VISIT EST Diagnosis: Pain in left arm[ICD10: M79.602] Diagnosis: Contact with and (suspected) exposure to potentially hazardous body fluids[ICD10: Z77.21] Diagnosis: 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, 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] Diagnosis: Unspecified open wound, right foot, sequela[ICD10: S91.301S] María Elena APPIAH DO [facility] CPT-4: 58412 09/19/2016 ([id number]) OFFICE/OUTPATIENT VISIT EST Diagnosis: Chronic sinusitis, unspecified[ICD10: J32.9] Diagnosis: Allergic rhinitis due to pollen[ICD10: J30.1] María Elena APPIAH DO [facility] CPT-4: 21713 08/24/2016 ([id number]) OFFICE/OUTPATIENT VISIT EST Diagnosis: Acute bronchitis, unspecified[ICD10: J20.9] María Elena APPIAH [employer] [facility] CPT-4: 10126 08/16/2016 ([id number]) OFFICE/OUTPATIENT VISIT EST Diagnosis: Otitis media, unspecified, right ear[ICD10: H66.91] Diagnosis: Acute bronchitis, unspecified[ICD10: J20.9] María Elena APPIAH DO [facility] CPT-4: 88076 08/10/2016 ([id number]) OFFICE/OUTPATIENT VISIT EST Diagnosis: Acute recurrent sinusitis, unspecified[ICD10: J01.91] Diagnosis: Allergic rhinitis due to pollen[ICD10: J30.1] María Elena APPIAH [facility] CPT-4: 36980 08/02/2016 ([id number]) OFFICE/OUTPATIENT VISIT EST Diagnosis: Pain in unspecified joint[ICD10: M25.50] María Elena APPIAH DO [facility] CPT-4: 66220 07/27/2016 OFFICE/OUTPATIENT VISIT EST Diagnosis: 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] Diagnosis: Acute recurrent sinusitis, unspecified[ICD10: J01.91] Diagnosis: Other fatigue[ICD10: R53.83] Diagnosis: Primary insomnia[ICD10: F51.01] Diagnosis: Pain in unspecified joint[ICD10: M25.50] María Elena APPIAH DO [facility] CPT-4: 24007 07/20/2016 ([id number]) OFFICE/OUTPATIENT VISIT EST Diagnosis: Blister (nonthermal), left great toe, initial encounter[ICD10: S90.422A] Loan APPIAH DO [facility] CPT-4: 10157 ([id number]) OFFICE/OUTPATIENT VISIT EST Diagnosis: Acute recurrent sinusitis, unspecified[ICD10: J01.91] María Elena APPIAH [facility] CPT-4: 54077 05/25/2016 ([id number]) OFFICE/OUTPATIENT VISIT EST Diagnosis: Acute sinusitis, unspecified[ICD10: J01.90] María Elena APPIAH [facility] CPT-4: 70688 04/26/2016 ([id number]) OFFICE/OUTPATIENT VISIT EST Diagnosis: Flushing[ICD10: R23.2] Diagnosis: Primary insomnia[ICD10: F51.01] María Elena APPIAH [facility] CPT-4: 11571 03/02/2016 ([id number]) OFFICE/OUTPATIENT VISIT EST Diagnosis: Other seasonal allergic rhinitis[ICD10: J30.2] Loan APPIAH [facility] CPT-4: 23494 02/09/2016 ([id number]) OFFICE/OUTPATIENT VISIT EST Diagnosis: Primary insomnia[ICD10: F51.01] Diagnosis: Urinary tract infection, site not specified[ICD10: N39.0] María Elena APPIAH [facility] CPT-4: 37982 01/24/2016 ([id number]) OFFICE/OUTPATIENT VISIT EST Diagnosis: Other specified disorders of Eustachian tube, bilateral[ICD10: H69.83] Diagnosis: Allergic rhinitis, unspecified[ICD10: J30.9] Loan ELLISLINE Fabiola APPIAH [facility] CPT-4: 27274 12/23/2015 ([id number]) OFFICE/OUTPATIENT VISIT EST Diagnosis: Acute recurrent sinusitis, unspecified[ICD10: J01.91] Diagnosis: 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] Diagnosis: Allergic rhinitis, unspecified[ICD10: J30.9] María Elena APPIAH DO [facility] CPT-4: 74538 12/08/2015 ([id number]) OFFICE/OUTPATIENT VISIT EST Diagnosis: Allergic rhinitis, unspecified[ICD10: J30.9] Diagnosis: Pain in unspecified joint[ICD10: M25.50] María Elena APPIAH DO [facility] CPT-4: 76213 10/07/2015 ([id number]) OFFICE/OUTPATIENT VISIT EST Diagnosis: Essential (primary) hypertension[ICD10: I10] María Elena APPIAH DO [facility] CPT-4: 44594 10/06/2015 OFFICE/OUTPATIENT VISIT EST Diagnosis: Localized enlarged lymph nodes[ICD10: R59.0] Diagnosis: Local infection of the skin and subcutaneous tissue, unspecified[ICD10: L08.9] June Sandra MARÍA ELENA APPIAH [facility] CPT- 4: 55559 09/14/2015 ([id number]) OFFICE/OUTPATIENT VISIT EST Diagnosis: Essential (primary) hypertension[ICD10: I10] Diagnosis: Actinic keratosis[ICD10: L57.0] María Elena APPIAH DO [facility] CPT-4: 22942 09/07/2015 ([id number]) OFFICE/OUTPATIENT VISIT EST Diagnosis: Essential (primary) hypertension[ICD10: I10] Diagnosis: Acute stress reaction[ICD10: F43.0] María Elena APPIAH [facility] CPT-4: 71728 08/18/2015 ([id number]) OFFICE/OUTPATIENT VISIT EST Diagnosis: Essential (primary) hypertension[ICD10: I10] María Elena APPIAH DO [facility] CPT-4: 30456 07/07/2015 ([id number]) OFFICE/OUTPATIENT VISIT EST Diagnosis: Essential (primary) hypertension[ICD10: I10] María Elena APPIAH DO [facility] CPT-4: 90852 06/24/2015 ([id number]) OFFICE/OUTPATIENT VISIT EST Diagnosis: Essential (primary) hypertension[ICD10: I10] María Elena APPIAH DO [facility] CPT-4: 82057 06/21/2015 ([id number]) OFFICE/OUTPATIENT VISIT EST Diagnosis: Essential (primary) hypertension[ICD10: I10] Diagnosis: Mixed hyperlipidemia[ICD10: E78.2] Diagnosis: Acute stress reaction[ICD10: F43.0] Diagnosis: Primary insomnia[ICD10: F51.01] María Elena APPIAH DO [facility] CPT-4: 53202 06/16/2015 ([id number]) OFFICE/OUTPATIENT VISIT EST Diagnosis: INSOMNIA NOS[ICD9: 780.52] Diagnosis: HYPERTENSION[ICD9: 401.9] Diagnosis: Stress reaction[ICD9: 308.9] María Elena APPIAH DO [facility] CPT-4: 17052 06/02/2015 ([id number]) OFFICE/OUTPATIENT VISIT EST Diagnosis: HYPERTENSION[ICD9: 401.9] Diagnosis: Stress reaction[ICD9: 308.9] María Elena APPIAH DO [facility] CPT-4: 89431 05/20/2015 ([id number]) OFFICE/OUTPATIENT VISIT EST Diagnosis: Skin lesion[ICD9: 709.9] 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] María Elena APPIAH [facility] CPT-4: 07393 05/10/2015 ([id number]) OFFICE/OUTPATIENT VISIT EST Diagnosis: SINUSITIS, ACUTE[ICD9: 461.9] Diagnosis: ALLERGIC RHINITIS[ICD9: 477.9] Diagnosis: DERMATITIS NOS[ICD9: 692.9] María Elena REHMAN [facility] CPT-4: 94716 03/16/2015 OFFICE/OUTPATIENT VISIT EST Diagnosis: Otitis media[ICD9: 382.9] Diagnosis: SINUSITIS, ACUTE[ICD9: 461.9] June Sandra MARÍA ELENA APPIAH DO [facility] CPT-4: 67665 09/11/2014 ([id number]) OFFICE/OUTPATIENT VISIT EST Diagnosis: HYPERLIPIDEMIA NEC/NOS[ICD9: 272.4] María Elena APPIAH DO [facility] CPT-4: 52014 08/31/2014 ([id number]) OFFICE/OUTPATIENT VISIT EST Diagnosis: - I - HYPERTENSION[ICD9: 401.9] Diagnosis: HYPERLIPIDEMIA NEC/NOS[ICD9: 272.4] María Elena APPIAH DO [facility] CPT-4: 82034 08/27/2014 ([id number]) OFFICE/OUTPATIENT VISIT EST Diagnosis: ABDOMINAL PAIN[ICD9: 789.00] Diagnosis: DYSPEPSIA[ICD9: 536.8] Diagnosis: Thoracic back pain[ICD9: 724.1] María Elena APPIAH [facility] CPT-4: 47716 07/21/2014 ([id number]) OFFICE/OUTPATIENT VISIT EST Diagnosis: ALLERGIC RHINITIS[ICD9: 477.9] María Elena APPIAH [facility] CPT-4: 75574 07/15/2014 ([id number]) OFFICE/OUTPATIENT VISIT EST Diagnosis: EDEMA[ICD9: 782.3] Diagnosis: Chronic insomnia[ICD9: 780.52] María Elena APPIAH [facility] CPT-4: 61588 05/18/2014 ([id number]) OFFICE/OUTPATIENT VISIT EST Diagnosis: Thyromegaly[ICD9: 240.9] Diagnosis: - I - HYPERTENSION[ICD9: 401.9] Diagnosis: ROUTINE MEDICAL EXAM[ICD9: V70.0] Diagnosis: EDEMA[ICD9: 782.3] María Elena APPIAH DO [facility] CPT-4: 08729 05/14/2014 OFFICE/OUTPATIENT VISIT EST Diagnosis: BRONCHITIS, ACUTE[ICD9: 466.0] Diagnosis: SINUSITIS, ACUTE[ICD9: 461.9] María Elena APPIAH DO [facility] CPT-4: 68700 04/21/2014 OFFICE/OUTPATIENT VISIT EST Diagnosis: SINUSITIS, ACUTE[ICD9: 461.9] Jnue APPIAH [facility] CPT-4: 43203 03/04/2014 ([id number]) OFFICE/OUTPATIENT VISIT EST Diagnosis: VACCINE FOR TDAP[ICD10: Z23] María Elena APPIAH DO [facility] CPT-4: 36004 02/27/2014 ([id number]) OFFICE/OUTPATIENT VISIT EST Diagnosis: Seborrheic keratoses, inflamed[ICD9: 702.11] Diagnosis: ACTINIC KERATOSIS[ICD9: 702.0] Diagnosis: INSOMNIA NOS[ICD9: 780.52] María Elena [facility] CPT-4: 26802 01/13/2014 OFFICE/OUTPATIENT VISIT EST 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] Diagnosis: ALLERGIC RHINITIS[ICD9: 477.9] Diagnosis: Serous otitis media[ICD9: 381.4] María Elena APPIAH [facility] CPT-4: 63420 12/24/2013 ([id number]) OFFICE/OUTPATIENT VISIT EST Diagnosis: SINUSITIS, ACUTE[ICD9: 461.9] Diagnosis: ALLERGIC RHINITIS[ICD9: 477.9] 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] María Elena APPIAH [facility] CPT-4: 19899 11/12/2013 ([id number]) OFFICE/OUTPATIENT VISIT EST Diagnosis: ALLERGIC RHINITIS[ICD9: 477.9] Diagnosis: SINUSITIS, ACUTE[ICD9: 461.9] María Elena APPIAH [facility] CPT-4: 92254 10/21/2013 ([id number]) OFFICE/OUTPATIENT VISIT EST Diagnosis: ASYMPTOMATIC VARICOSE VEINS[ICD9: 454.9] Diagnosis: INSOMNIA NOS[ICD9: 780.52] María Elena [facility] CPT-4: 07140 09/22/2013 OFFICE/OUTPATIENT VISIT EST Diagnosis: SINUSITIS, ACUTE[ICD9: 461.9] June APPIAH [facility] CPT-4: 67730 08/27/2013 ([id number]) OFFICE/OUTPATIENT VISIT EST Diagnosis: CEPHALGIA[ICD9: 784.0] Diagnosis: CEPHALGIA, TENSION[ICD9: 307.81] 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] María Elena APPIAH DO [facility] CPT-4: 98520 08/04/2013 ([id number]) OFFICE/OUTPATIENT VISIT EST Diagnosis: Cervicalgia[ICD9: 723.1] Diagnosis: SPASM OF MUSCLE[ICD9: 728.85] Diagnosis: CEPHALGIA, TENSION[ICD9: 307.81] María Elena APPIAH DO [facility] CPT-4: 37155 07/23/2013 ([id number]) OFFICE/OUTPATIENT VISIT EST 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] Diagnosis: ALLERGIC RHINITIS[ICD9: 477.9] María Elena APPIAH DO [facility] CPT-4: 85655 06/23/2013 ([id number]) OFFICE/OUTPATIENT VISIT EST Diagnosis: ALLERGIC RHINITIS[ICD9: 477.9] Diagnosis: ACUTE SEROUS OTITIS MEDIA[ICD9: 381.01] 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] María Elena APPIAH DO [facility] CPT-4: 93719 05/26/2013 ([id number]) OFFICE/OUTPATIENT VISIT EST Diagnosis: HYPERTENSION[ICD9: 401.9] Diagnosis: EDEMA[ICD9: 782.3] Diagnosis: Serous otitis media[ICD9: 381.4] María Elena APPIAH DO [facility] CPT-4: 14076 04/16/2013 ([id number]) OFFICE/OUTPATIENT VISIT EST Diagnosis: SINUSITIS, ACUTE[ICD9: 461.9] Diagnosis: ALLERGIC RHINITIS[ICD9: 477.9] Diagnosis: EDEMA[ICD9: 782.3] Diagnosis: Thyromegaly[ICD9: 240.9] Diagnosis: MALAISE AND FATIGUE[ICD9: 780.79] María Elena APPIAH [facility] CPT-4: 22610 03/05/2013 ([id number]) OFFICE/OUTPATIENT VISIT EST Diagnosis: PAIN, LOWER BACK[ICD9: 724.2] Diagnosis: SPASM OF MUSCLE[ICD9: 728.85] María Elena JUARES LucioJj TD [facility] CPT-4: 90926 12/23/2012 OFFICE/OUTPATIENT VISIT EST Diagnosis: Low back pain[ICD9: 724.2] Lashawn Hicks [facility]: 72462 12/16/2012 ([id number]) OFFICE/OUTPATIENT VISIT EST Diagnosis: PAIN, LOWER BACK[ICD9: 724.2] Diagnosis: SCIATICA[ICD9: 724.3] Diagnosis: Lumbar herniated disc[ICD9: 722.10] María Elena COLON LucioJj TD [facility] CPT-4: 70097 12/09/2012 ([id number]) OFFICE/OUTPATIENT VISIT EST Diagnosis: PAIN, LOWER BACK[ICD9: 724.2] Diagnosis: SCIATICA[ICD9: 724.3] Diagnosis: LUMBAR DISC DISPLACEMENT[ICD9: 722.10] María Elena MARIN LucioJj TD [facility] CPT-4: 34403 12/04/2012 OFFICE/OUTPATIENT VISIT EST Diagnosis: Pneumonia[ICD9: 486] Mary JUARES LucioJj TD [facility] CPT-4: 18684 11/22/2012 ([id number]) OFFICE/OUTPATIENT VISIT EST Diagnosis: PNEUMONIA, ORGANISM[ICD9: 486] Diagnosis: Exacerbation of RAD (reactive airway disease)[ICD9: 493.92] María Elena JUARES LucioJj TD [facility] CPT-4: 75557 11/21/2012 OFFICE/OUTPATIENT VISIT EST Diagnosis: HYPERTENSION[ICD9: 401.9] Diagnosis: Cephalgia[ICD9: 784.0] Lashawn Hicks [facility] CPT-4: 05752 10/29/2012 ([id number]) OFFICE/OUTPATIENT VISIT EST Diagnosis: MALAISE AND FATIGUE[ICD9: 780.79] Diagnosis: ARTHRALGIA-MULTIPLE SITES[ICD9: 719.49] María Elena Hicks TD [facility] CPT-4: 59482 10/14/2012 ([id number]) OFFICE/OUTPATIENT VISIT EST Diagnosis: URINARY FREQUENCY[ICD9: 788.41] María Elena APPIAH DO [facility] CPT-4: 00075 09/27/2012 ([id number]) OFFICE/OUTPATIENT VISIT EST Diagnosis: MALAISE AND FATIGUE[ICD9: 780.79] Diagnosis: ARTHRALGIA-MULTIPLE SITES[ICD9: 719.49] María Elena APPIAH DO [facility] CPT-4: 38510 09/25/2012 ([id number]) OFFICE/OUTPATIENT VISIT EST Diagnosis: SINUSITIS, ACUTE[ICD9: 461.9] 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] María Elena APPIAH DO [facility] CPT-4: 27459 08/29/2012 OFFICE/OUTPATIENT VISIT EST Diagnosis: ACTINIC KERATOSIS[ICD9: 702.0] Diagnosis: Inflamed seborrheic keratosis[ICD9: 702.11] Diagnosis: Skin cancer of face[ICD9: 173.31] Diagnosis: HYPERTENSION[ICD9: 401.9] María Elena [facility] CPT-4: 19780 08/12/2012 ([id number]) OFFICE/OUTPATIENT VISIT EST Diagnosis: ARTHRALGIA-MULTIPLE SITES[ICD9: 719.49] Diagnosis: GOUT[ICD9: 274.9] Diagnosis: HYPERTENSION[ICD9: 401.9] Diagnosis: Tachycardia[ICD9: 785.0] Mraía Elena HU KARLOS [facility] CPT-4: 66171 05/06/2012 ([id number]) OFFICE/OUTPATIENT VISIT EST Diagnosis: INSOMNIA NOS[ICD9: 780.52] María Elena SIMONS MUMTAZ [facility] CPT-4: 61380 04/03/2012 ([id number]) OFFICE/OUTPATIENT VISIT EST Diagnosis: INSOMNIA NOS[ICD9: 780.52] Diagnosis: HYPERTENSION[ICD9: 401.9] Diagnosis: MIGRAINE NOS/NOT INTRCBL[ICD9: 346.90] María Elena MONTEROLui MARIN Fabiola WAYNDER [facility] CPT-4: 38720 03/19/2012 ([id number]) OFFICE/OUTPATIENT VISIT EST Diagnosis: CELLULITIS[ICD9: 682.9] Diagnosis: Ankle pain[ICD9: 719.47] Diagnosis: HYPERTENSION[ICD9: 401.9] María Elena JUARES LucioJj SE[facility] CPT-4: 63582 02/20/2012 ([id number]) OFFICE/OUTPATIENT VISIT EST Diagnosis: MIGRAINE NOS/NOT INTRCBL[ICD9: 346.90] Diagnosis: Vomiting[ICD9: 787.03] María Elena Hicks SE[facility]USGAL[facility] Rose Mary [facility] CPT-4: 92609 01/30/2012 ([id number]) OFFICE/OUTPATIENT VISIT EST Diagnosis: EDEMA[ICD9: 782.3] Diagnosis: HYPERTENSION[ICD9: 401.9] Diagnosis: ALLERGIC RHINITIS[ICD9: 477.9] Diagnosis: ARTHRALGIA-MULTIPLE SITES[ICD9: 719.49] María Elena Hicks [facility] CPT-4: 78936 01/24/2012 ([id number]) OFFICE/OUTPATIENT VISIT EST Diagnosis: SPASM OF MUSCLE[ICD9: 728.85] Diagnosis: Thoracic back pain[ICD9: 724.1] Diagnosis: Cervical pain[ICD9: 723.1] María Elena Hicks KRISTYN MUMTAZ [facility] CPT-4: 44678 01/10/2012 OFFICE/OUTPATIENT VISIT EST Diagnosis: PAIN, LOWER BACK[ICD9: 724.2] Diagnosis: LUMBAR DISC DISPLACEMENT[ICD9: 722.10] María Elena Hicks [facility] CPT-4: 32435 12/11/2011 OFFICE/OUTPATIENT VISIT EST Diagnosis: MIGRAINE NOS/NOT INTRCBL[ICD9: 346.90] Diagnosis: SINUSITIS, ACUTE[ICD9: 461.9] María Elena Hicks [facility] CPT-4: 04795 11/09/2011 OFFICE/OUTPATIENT VISIT EST Diagnosis: MIGRAINE NOS/NOT INTRCBL[ICD9: 346.90] Diagnosis: LYMPHADENOPATHY[ICD9: 785.6] María Elena Hicks [facility] CPT-4: 10958 09/13/2011 OFFICE/OUTPATIENT VISIT EST Diagnosis: MALAISE AND FATIGUE[ICD9: 780.79] Diagnosis: ARTHRALGIA-MULTIPLE SITES[ICD9: 719.49] María Elena APPIAH DO [facility] CPT-4: 36967 08/31/2011 OFFICE/OUTPATIENT VISIT EST Diagnosis: SINUSITIS, ACUTE[ICD9: 461.9] María Elena APPIAH DO [facility] CPT-4: 43301 07/20/2011 OFFICE/OUTPATIENT VISIT EST Diagnosis: HYPERTENSION[ICD9: 401.9] Diagnosis: PAIN, LOWER BACK[ICD9: 724.2] Diagnosis: SPASM OF MUSCLE[ICD9: 728.85] María Elena APPIAH DO [facility] CPT-4: 84724 07/06/2011 OFFICE/OUTPATIENT VISIT EST Diagnosis: MIGRAINE NOS/NOT INTRCBL[ICD9: 346.90] Diagnosis: HYPERTENSION[ICD9: 401.9] María Elena [facility] CPT-4: 00957 05/22/2011 OFFICE/OUTPATIENT VISIT EST Diagnosis: SINUSITIS, ACUTE[ICD9: 461.9] Diagnosis: MIGRAINE NOS/NOT INTRCBL[ICD9: 346.90] Diagnosis: Dehydration[ICD9: 276.51] Diagnosis: Vomiting[ICD9: 787.03] María Elena Seamusmindivictorino ELLISMARÍA ELENA LucioJj CIRO Bazzi [facility] CPT-4: 07985 05/09/2011 ([id number]) OFFICE/OUTPATIENT VISIT EST María Elena APPIAH DO [facility] CPT-4: 72082 02/14/2011 ([id number]) OFFICE/OUTPATIENT VISIT EST María Elena Seamusmindivictorino MARLIN TANIA ValdesJj TD [facility] CPT-4: 37513 02/03/2011 ([id number]) OFFICE/OUTPATIENT VISIT EST María Elena Appiah MARLIN TANIA ValdesJj TD [facility] CPT-4: 96223 01/31/2011 ([id number]) OFFICE/OUTPATIENT VISIT EST María Elenamarcella Waymindivictorino MARLIN TANIA ValdesJj TD [facility] CPT-4: 95144 01/25/2011 ([id number]) OFFICE/OUTPATIENT VISIT EST María Elena [facility] CPT-4: 20545 01/18/2011 ([id number]) OFFICE/OUTPATIENT VISIT EST María Elena MARIN SJj [facility] CPT-4: 04439 11/29/2010 ([id number]) OFFICE/OUTPATIENT VISIT, EST María Elena REED [facility] CPT-4: 87530 10/10/2010 ([id number]) OFFICE/OUTPATIENT VISIT, EST María Elena BRAUNLINE [facility] CPT-4: 41313 06/07/2010 ([id number]) OFFICE/OUTPATIENT VISIT, EST María Elena [facility] CPT-4: 98008 04/27/2010 ([id number]) OFFICE/OUTPATIENT VISIT, EST María Elena [facility] CPT-4: 94714 04/05/2010 ([id number]) OFFICE/OUTPATIENT VISIT, EST María Elena BRAUNLINE [facility] CPT-4: 05543 03/09/2010 ([id number]) OFFICE/OUTPATIENT VISIT, EST María Elena [facility] CPT-4: 00475 03/03/2010 ([id number]) OFFICE/OUTPATIENT VISIT, EST María Elena [facility] CPT-4: 41132 01/17/2010 ([id number]) PREV VISIT, EST, AGE 40-64 María Elena COLEMAN [facility] CPT-4: 08121 12/27/2009 Plan of Care Planned Activity Notes Codes Status Date Appointment: RichardvictorinoMaría Elena [id number] CANCELED 11/26/2019 Visit Diagnosis Plan: Type 2 diabetes mellitus with hy perglycemia Discussion: Januvia 100mg daily Glimepride 2mg po BID Accuchecks BID Call in 2 weeks with BS readings Get formulary book ICD-9 : 250.02 ICD-10 : E11.65 11/20/2019 Appointment: María Elena Appiah WPtel: [phone] [id number] FOLLOW UP 11/20/2019 Patient Education: glimepiride- [employer] C[employer]on [id number] Completed 11/20/2019 Patient Education: Januvia- [employer] C[employer]on [id number] Completed 11/20/2019 Visit Diagnosis Plan: Ingrowing nail [...] ICD-10 : E11.65 10/07/2019 Appointment: Kathleen Zuniga [address] [place], [place] [id number] OFFICE SURGERY 10/07/2019 Visit Diagnosis Plan: Hypertriglyceridemia [...] E11.65 09/30/2019 Appointment: María Elena Appiah WPtel: [address] [place], [place] [phone] [place] CHECK UP 09/30/2019 Patient Education: Premarin- [employer] Coupon [id number] [email or web address]/resources/[email or web address] Completed 09/30/2019 Appointment: María Elena Appiah WPtel: [address] [place], [place] [phone] [place] LAB 09/29/2019 Appointment: María Elena Appiah WPtel: [address] [place], [place] [phone] [place] Won't have the new insurance till Sep 10. CANSHARONE D 07/24/2019 Visit Diagnosis Plan: Essential (primary) hypertension Discussion: Stable Will have insurance in July and do lab then ICD-9 : 401.9 ICD-10 : I10 05/28/2019 Visit Diagnosis Plan: Fall from bed, sequela Discussio n: DC gabapentin Decrease baclofen to 10mg TID prn ICD-9 : E929.3 ICD-10 : W06.XXXS 05/28/2019 Appointment: María Elena Appiah WPtel: [address] [place], [place] [phone] [place] FOLLOW UP 05/28/2019 Appointment: María Elena Appiah WPtel: [address] [place], [place] [phone] [place] BP CHECK 05/19/2019 Visit Diagnosis Plan: [...] : Z79.890 01/22/2019 Appointment: María Elena Appiahtel: [address] [place] [address] [place] FOLLOW UP 01/22/2019 Patient Education: estradiol- [employer] Coupon [id number] [email or web address] Funding/resources/getResource/[email or web address] Completed 01/22/2019 Appointment: María Elena Appiah WPtel: [address] [place] [address] [place] CANCELED 01/20/2019 Appointment: María Elena Appiah WPtel: [address] [place] [address] [place] LM NO SHOW 01/06/2019 Appointment: María Elena Appiah WPtel: [address] [place] [address] [place] CANCELED 10/17/2018 Appointment: María Elena Appiah WPtel: [address] [place] [address] US BP CHECK 10/09/2018 Visit Diagnosis Plan: Type 2 diabetes mellitus with hy perglycemia Discussion: Patient still has not gotten lab done--will go today Check UA for microalbumin Follow Up: 3 months ICD-9 : 250.02 ICD-10 : E11.65 09/30/2018 Visit Diagnosis Plan: Essential (primary) hypertension Discussion: Continue current meds and monitor BP ICD-9 : 401.9 ICD-10 : I10 09/30/2018 Appointment: María Elena Appiahtel: [address] [place] [address] FOLLOW UP 09/30/2018 Visit Diagnosis Plan: Pain [...] : 780.52 ICD-10 : F51.01 08/27/2018 Appointment: MaríaE lena Appiah WPtel: [address] [place] [address] ACUTE ILLNESS 08/27/2018 Appointment: María Elena Appiah WPtel: [address] [place] [address] [place] Patient stated she went out to [...] 08/09/2018 Appointment: María Elena Appiah WPtel: [address] [place] [address] ACUTE ILLNESS 08/09/2018 Appointment: María Elena Appiah WPtel: [address] [place] [address] NO SHOW 08/08/2018 Visit Diagnosis Plan: Anxiety [...] B35.4 07/22/2018 Appointment: María Elena Appiah WPtel: [address] [place] [address] ACUTE ILLNESS 07/22/2018 Appointment: María Elena Appiah WPtel: [address] [place] [address] [place] INJECTION 06/19/2018 Patient Education: Patient Medication [...] ICD-10 : L03.031 06/17/2018 Appointment: Kathleen Zuniga [address] [place] [address] ACUTE ILLNESS 06/17/2018 Patient Education: Patient Medication [...] ICD-10 : B02.9 05/16/2018 Appointment: Kathleen Zuniga [address] [place], [place] [phone] ACUTE ILLNESS 05/16/2018 Patient Education: Patient Medication [...] : L03.115 03/20/2018 Appointment: Kathleen Zuniga [id number] FOLLOW UP 03/20/2018 Patient Education: Patient Medication [...] : L03.115 03/18/2018 Appointment: Kathleen Zuniga [id number] FOLLOW UP 03/18/2018 Patient Education: Patient Medication [...] ICD-10 : L03.115 03/15/2018 Appointment: Kathleen Zuniga [address] [place], [place] [phone] ACUTE ILLNESS 03/15/2018 Patient Education: Patient Medication [...] ICD-10 : J01.90 02/11/2018 Appointment: Kathleen Zuniga [address] [place], [place] [phone] ACUTE ILLNESS 02/11/2018 Patient Education: Patient Medication Summary Completed 02/11/2018 Appointment: María Elena Appiah WPtel: [phone] [id number] INJECTION 02/01/2018 Patient Education: Patient [...] ICD-10 : M51.16 01/30/2018 Appointment: Kathleen Zuniga [address] [place] [address] ACUTE ILLNESS 01/30/2018 Patient Education: Patient Medication Summary Completed 01/30/2018 Patient Education: Arian - 18+ - No HI TRAY JEAN [...] E11.65 12/18/2017 Appointment: María Elena Appiah WPtel: [address] [place] [address] Annual Well Visit 12/18/2017 Patient Education: Patient Medication Summary Completed 12/18/2017 Care Plan: Referral Order SNOMED-CT : [id number] Pending 12/18/2017 Appointment: María Elena Appiah WPtel: [address] [place] [address] [place] INJECTION 12/10/2017 Patient Education: Patient Medication [...] ICD-10 : L03.031 12/07/2017 Appointment: Kathleen Zuniga [address] [place], [place] [id number] ACUTE ILLNESS 12/07/2017 Patient Education: Patient [...] ICD-10 : J01.00 10/08/2017 Appointment: Kathleen Zuniga [address] [place], [place] [id number] ACUTE ILLNESS 10/08/2017 Patient Education: Patient Medication Summary Completed 10/08/2017 Appointment: María Elena Appiah WPtel: [phone] [id number] INJECTION 09/21/2017 Patient Education: Patient Medication [...] : R06.83 09/20/2017 Appointment: Kathleen Zuniga [address] [id number] ACUTE ILLNESS 09/20/2017 Patient Education: Patient [...] : L60.0 08/29/2017 Appointment: Kathleen Zuniga [address] [id number] OFFICE SURGERY 08/29/2017 Patient Education: Patient Medication Summary Completed 08/29/2017 Visit Diagnosis Plan: Actinic keratosis Discussion: Cr yotherapy as above ICD-9 : 702.0 ICD-10 : L57.0 08/01/2017 Appointment: María Elena Appiah WPtel: [phone] [id number] OFFICE SURGERY 08/01/2017 Patient Education: Patient Medication Summary Completed 08/01/2017 Appointment: María Elena Appiah WPtel: [phone] [id number] PATIENT THOUGHT APPOINTMENT WAS TOMORROW 07/26/17 CALLED 15 MINUTES BEFORE APPT TO SAY SHE DIDN'T HAVE ANYONE TO COVER HER BUSINESS AND WOULD NOT MAKE IT NO SHOW 07/25/2017 Visit Diagnosis Plan: Cellulitis of left toe Discussio n: Clindamycin and notify if worsening or persistis ICD-9 : 681.10 ICD-10 : L03.032 07/19/2017 Appointment: María Elena Appiah WPtel: [phone] [facility] MEDICATION REVIEW 07/19/2017 Patient Education: Patient Medication Summary Completed 07/19/2017 Appointment: María Elena Appiah WPtel: [phone] [facility] US CANCELED 07/04/2017 Visit Diagnosis Plan: Generalized hyperhidrosis Discus ian: CBC, CMP, TSH, free T4 ordered to assess. will review labs. ICD-9 : 780.8 ICD-10 : R61 06/27/2017 Visit Diagnosis Plan: Chronic sinusitis, unspecified D iscussion: Referral sent to dr. albarado in [place] per patient request. patient has been treated multiple times for sinus infections with no recovery. patient was seen by dr sanchez in the past with no interventions. patient has deviated septum which may be affecting her sinuses. 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, including hip Discussion: Shave removal of above lesio n--sent to pathology ICD-9 : 216.7 ICD-10 : D23.72 01/24/2017 Appointment: María Elena Appiah WPtel: [address] [place] [address] 01/23 confirmed ~sl OFFICE SURGERY 01/24/2017 Patient Education: Patient Medication Summary Completed 01/24/2017 Appointment: Loan Sánchez [address] [place] [address] 01/09 rescheduled~sl RESCHEDULED 01/15/2017 Visit Diagnosis Plan: [...] L81.4 12/13/2016 Appointment: María Elena Appiah WPtel: [address] [place], [place] [phone] 12/12 confirmed ~sl MEDICATION REVIEW 12/13/2016 Patient Education: Patient Medication Summary Completed 12/13/2016 Appointment: María Elena Appiah WPtel:[phone] [id number] [facility] rescheduled for 12/13/16 at 11am RESCHEDULED 0 12/06/2016 Appointment: María Elena Appiah WPtel: [phone] [facility] US CANCELED 11/23/2016 Patient Education: Patient Medication [...] 11/01/2016 Appointment: María Elena Appiah WPtel: [address] [place], [place] [address] [place] 10/31 lm `sl 11/01 lm`sl MEDICATION REVIEW 017 Patient Education: Patient Medication Summary Completed 11/01/2016 Referral: Canelo Overton WPtel: [phone] [id number] US Referral Initiated 10/30/2016 Visit Diagnosis Plan: [...] 10/17/2016 Appointment: María Elena [facility]Ptel[facility] [phone] [facility] [facility] 2/ confirmed ~sl PAP 10/17/2016 Patient Education: Patient Medication Summary Completed 10/17/2016 Care Plan: MAMMOGRAM SCREENING LOINC : 2 6347-5 Pending 10/17/2016 Visit Diagnosis Plan: Other seasonal allergic rhinitis Discussion: Decadron/Garamycin Nasal [place] Mix Too soon for steroid Retry zyrtec 10mg daily ICD-9 : 477.9 ICD-10 : J30.2 10/10/2016 Appointment: María Elena Appiah WPtel: [address] [place], [place] [id number] FOLLOW UP 10/10/2016 Patient Education: Patient Medication Summary Completed 10/10/2016 Appointment: María Elena Appiah WPtel: [address] [place], [place] [phone] 10/02 reschedule ` RESCHEDULED 10/02/2016 Visit Plan: See surgery for removal of n ew left arm lesion and right foot lesion Lyrica to use next month for left arm paresthesias Continue current meds Discussed sunscreen/sunblock combo 09/19/2016 Appointment: María Elena Appiah WPtel: [address] [place], [place] [address] 09/18 confirmed ~sl FOLLOW UP 09/19/2016 Patient Education: Patient Medication Summary Completed 09/19/2016 Patient Education: Patient Medication Summary Completed 09/18/2016 Care Plan: MAMMOGRAM BOTH BREASTS LOINC : 59738-6 Pending 09/18/2016 Visit Plan: Discussed that needs [...] sinuses 08/24/2016 Appointment: María Elena Appiah WPtel: [address] [place], [place] [address] ACUTE ILLNESS 08/24/2016 Patient Education: Patient Medication Summary Completed 08/24/2016 Patient Education: Patient Medication Summary Completed 08/23/2016 Care Plan: MAMMOGRAM SCREENING LOINC : 2 6347-5 Pending 08/23/2016 Visit Plan: Finish doxycycline Add Breo 100/25 1 p BID for 2 weeks If not improving within next 2 days will get CXR 08/16/2016 Appointment: María Elena Appiah WPtel: [address] [place] [address] ACUTE ILLNESS 08/16/2016 Patient Education: Patient Medication Summary Completed 08/16/2016 Visit Plan: Supportive care. Rest, Fluid s, Tylenol/Motrin prn fever or bodyaches. Notify if worsening symptoms. Doxycyline and Prednisone 08/10/2016 Appointment: María Elena Appiah WPtel: [address] [place] [address] 08/09 lm`sl....confirmed-sp FOLLOW UP 09/2015 Patient Education: Patient Medication Summary Completed 08/10/2016 Visit Plan: Saline nasal flushes prn. Ty lenol/Motrin prn headache. Notify if persists/symptoms worsening. Dexamethasone 8mg IM today May use coricedan and mucinex 08/02/2016 Appointment: María Elena Appiah WPtel: [address] [place] [address] ACUTE ILLNESS 08/02/2016 Patient Education: Patient Medication Summary Completed 08/02/2016 Visit Plan: Cryotherapy as above and lef t forearm lesion removal as above with 5-0 punch biopsy and sent to path Return in 10 days for suture removal 08/01/2016 Appointment: María Elena Appiah WPtel: [address] [place] [address] 07/31 confirmed`~sl OFFICE SURGERY 08/01/2016 Patient Education: Patient Medication Summary Completed 08/01/2016 Visit Plan: Stop clindamycin Check CBC, CMP, ESR now/STAT 07/27/2016 Appointment: María Elena Appiah WPtel: [address] [place] [address] ACUTE ILLNESS 07/27/2016 Patient Education: Patient Medication Summary Completed 07/27/2016 Visit Plan: Update lab and check ABIs to start with Will likely need cardiology evaluation to rule out PVD Clindamycin for 10 days Daily yogurt or probiotic Will return for removal of left arm lesions 07/20/2016 Appointment: María Eelna Appiah WPtel: [address] [place] [address] ACUTE ILLNESS 07/20/2016 Patient Education: Patient Medication Summary Completed 07/20/2016 Patient Education: Patient Medication Summary Completed 07/20/2016 Care Plan: MAMMOGRAM BOTH BREASTS LOINC : 71505-1 Pending 07/20/2016 Care Plan: US EXAM CHEST LOINC : 05282-1 Pending 07/20/2016 Visit Plan: Wound culture collected from left great toe Appearance is somewhat staph like Rx as above Wound cleanser and skin care reviewed May need to add oral antibiotic if sores do not heal or continue to reoccur 07/06/2016 Appointment: Loan Sánchez [address] [place] [address] ACUTE ILLNESS 07/06/2016 Patient Education: Patient Medication Summary Completed 07/06/2016 Appointment: María Elena Appiah WPtel: [address] [place] [address] US INJECTION 05/25/2016 Patient Education: Patient Medication Summary Completed 05/25/2016 Visit Plan: Saline nasal flushes prn. Ty lenol/Motrin prn headache. Notify if persists/symptoms worsening. Dexamethasone and Rocephin given 04/26/2016 Appointment: María Elena Appiah WPtel: [address] [place] [address] ACUTE ILLNESS 04/26/2016 Patient Education: Patient Medication Summary Completed 04/26/2016 Visit Plan: Check CBC, CMP, TSH, FreeT4, HbA1C, estradiol, lipids in AM 03/02/2016 Appointment: María Elena Appiah WPtel: [address] [place] [address] 03/01 lm~sl ACUTE ILLNESS 03/02/2016 Patient Education: Patient Medication Summary Completed 03/02/2016 Visit Plan: Exam is nearly normal Needs to be taking daily antihistamine Would prefer to use oral steroids instead of shot but patient insist that oral steroids cause horrible headaches for her Will given kenalog IM instead 02/09/2016 Appointment: Loan Sánchez [address] [place] [address] ACUTE ILLNESS 02/09/2016 Patient Education: Patient Medication Summary Completed 02/09/2016 Visit Plan: Culture urine Macrobid DC xa nax Trial of Ativan 1mg q HS 01/24/2016 Appointment: María Elena Appiah WPtel: [address] [place] [address] ACUTE ILLNESS 01/24/2016 Patient Education: Patient Medication Summary Completed 01/24/2016 Visit Plan: No steroid or rocephin injec tion warranted Can have oral prednisone Continue current home regimen Needs to follow up with Dr Sanchez if problems persist 12/23/2015 Appointment: Loan Sánchez [address] [place] [address] ACUTE ILLNESS 12/23/2015 Patient Education: Patient Medication Summary Completed 12/23/2015 Visit Plan: Saline nasal flushes prn. Ty lenol/Motrin prn headache. Notify if persists/symptoms worsening. Kenalog 40mg IM today 12/08/2015 Appointment: María Elena Appiah WPtel: [address] [place] [address] 12/06 confirmed~ ACUTE ILLNESS 12/08/2015 Patient Education: Patient Medication Summary Completed 12/08/2015 Appointment: María Elena Appiah WPtel: [address] [place] [address] ACUTE ILLNESS 11/18/2015 Patient Education: Patient Medication Summary Completed 10/11/2015 Appointment: María Elena Appiah WPtel: [address] [place] [address] US INJECTION 10/07/2015 Patient Education: Patient Medication Summary Completed 10/07/2015 Visit Plan: Check renal arterial doppler s and ECHO Change amlodopine to lotrel 5/20mg q HS Will need stress test as well Check CMP, uric acid, ESR 10/06/2015 Appointment: María Elena Appiah WPtel: [address] [place], [place] [phone] ACUTE ILLNESS 10/06/2015 Patient Education: Patient Medication Summary Completed 10/06/2015 Patient Education: [facility] [place] [facility] [employer] - Amlodipine Besylate - 18-64 - Dynamic Portal ID Completed 10/06/2015 Appointment: María Elena Appiah WPtel: [address] [place], [place] [phone] [place] FOLLOW UP 09/22/2015 Visit Plan: Cephalexin 500 mg PO bid Mery ly topical Mupirocin to lesions on left lateral neck and face Follow-up in one week. Sooner if symptoms worsen 09/14/2015 Appointment: June Flores WPtel: [address] [place], [place] [phone] ACUTE ILLNESS 09/14/2015 Patient Education: Patient Medication Summary Completed 09/14/2015 Visit Plan: Change bystolic to bedtime d osing and amlodopine to morning dosing Cryotherapy as above to AKs 09/07/2015 Appointment: María Elena Appiah WPtel: [address] [place] [address] 09/06 appointment made and confirmed ~ FOLLOW UP 09/07/2015 Patient Education: Patient Medication Summary Completed 09/07/2015 Visit Plan: Increase bystolic back to 20 mg daily but will split and take 10mg in AM and 10mg in PM Stress Reducers 08/18/2015 Appointment: María Elena Appiah WPtel: [address] [place], [place] [phone] 08/17/15 appt confirmed cn ACUTE ILLNESS 08/18 Patient Education: Patient Medication Summary Completed 08/18/2015 Appointment: María Elena Appiah WPtel: [address] [place], [place] [phone] [place] BP CHECK 07/07/2015 Patient Education: Patient Medication Summary Completed 07/07/2015 Appointment: María Elena Appiah WPtel: [address] [place], [place] [phone] BP CHECK 06/24/2015 Patient Education: Patient Medication Summary Completed 06/24/2015 Appointment: María Elena Appiah WPtel: [address] [place] [address] BP CHECK 06/21/2015 Patient Education: Patient Medication Summary Completed 06/21/2015 Visit Plan: Lab discussed Continue curre nt meds and lifestyle modification Recheck lab in 6mos 06/16/2015 Appointment: María Elena Appiah WPtel: [address] [place] [address] 06/15 confirmed FOLLOW UP 06/16/2015 Patient Education: Patient Medication Summary Completed 06/16/2015 Patient Education: Patient Medication Summary Completed 06/15/2015 Visit Plan: Increase cymbalta to 60mg q HS Keep clonidine at current dose Recheck 2weeks Change xanax to klonopin 06/02/2015 Appointment: María Elena Appiah WPtel: [address] [place] [address] 06/02 lm FOLLOW UP 06/02/2015 Patient Education: Patient Medication Summary Completed 06/02/2015 Appointment: María Elena Appiah WPtel: [address] [place] [address] ACUTE ILLNESS 05/24/2015 Visit Plan: Increase clonidine to 0.2mg q HS Add cymbalta 30mg q HS Recheck 2weeks Stress Reducers Check fasting lab Discussed sleep study 05/20/2015 Appointment: María Elena Appiah WPtel: [address] [place] [address] ACUTE ILLNESS 05/20/2015 Patient Education: Patient Medication Summary Completed 05/20/2015 Patient Education: [facility] [place] [facility] [employer] - Cymbalta - 18-64 - Dynamic Portal ID Completed 05/20/2015 Appointment: María Elena Appiah WPtel: [address] [place] [address] BP CHECK 05/19/2015 Patient Education: Patient Medication Summary Completed 05/19/2015 Visit Plan: Topical Bactroban alternatin g with topical betamethasone Recheck 2weeks 05/10/2015 Appointment: María Elena Appiah WPtel: [address] [place], [place] [phone] 05/07 vm cn...05/07 appt confirmed OFFICE SURGER Y 05/10/2015 Patient Education: Patient Medication Summary Completed 05/10/2015 Referral: Patrick Chandler WPtel: [address] Referral Initiated 05/04/2015 Visit Plan: Saline nasal flushes prn. Ty lenol/Motrin prn headache. Notify if persists/symptoms worsening. Depomedrol 40mg IM today 03/16/2015 Appointment: María Elena Appiah WPtel: [address] [place] [address] ACUTE ILLNESS 03/16/2015 Patient Education: Patient Medication Summary Completed 03/16/2015 Appointment: María Elena Appiah WPtel: [address] [place] [address] ER Follow UP 03/09/2015 Visit Plan: Cryotherapy to lesions as ab ove 10/27/2014 Appointment: María Elena Appiah WPtel: [address] [place] [address] OFFICE SURGERY 10/27/2014 Patient Education: Patient Medication Summary Completed 10/27/2014 Appointment: June Flores WPtel: [address] [place] [address] ACUTE ILLNESS 09/11/2014 Patient Education: Patient Medication Summary Completed 09/11/2014 Visit Plan: Lab discussed Lipitor 10mg d aily Coenzyme Q-10 400mg daily Vitamin D3 5000u daily Recheck lipids with LFTs in 3mos then fwup 08/31/2014 Appointment: María Elena Appiah WPtel: [address] [place] [address] 08/28 voicemail FOLLOW UP 08/31/2014 Patient Education: Patient Medication Summary Completed 08/31/2014 Appointment: María Elena Appiahtel: [address] [place] [address] LAB 08/27/2014 Appointment: María Elena Appiah WPtel: [address] [place] [address] LAB 08/27/2014 Patient Education: Patient Medication Summary Completed 08/27/2014 Appointment: María Elena Appiahtel: [address] [place] [address] ACUTE ILLNESS 07/23/2014 Appointment: María Elena Appiah WPtel: [address] [place] [address] ACUTE ILLNESS 07/21/2014 Patient Education: Patient Medication Summary Completed 07/21/2014 Visit Plan: Kenalog 40mg IM today Contin ue narendra and singulair Add Flonase 07/15/2014 Appointment: María Elena Appiahtel: [address] [place] [address] ACUTE ILLNESS 07/15/2014 Appointment: María Elena Appiahtel: [address] [place] [address] ACUTE ILLNESS 07/15/2014 Patient Education: Patient Medication Summary Completed 07/15/2014 Visit Plan: Will do metolazone 2.5mg prn with 6 potassium and see if causes as severe cramping Trial of of seroquel XR 50mg q PM with evening meal and let us know how works 05/18/2014 Appointment: María Elena Appiahtel: [address] [place] [address] 05/15 left message FOLLOW UP 05/18/2014 Patient Education: Patient Medication Summary Completed 05/18/2014 Appointment: María Elena Appiah WPtel: [address] [place], [place] [phone] [place] LAB 05/14/2014 Patient Education: Patient Medication Summary Completed 05/14/2014 Appointment: María Elena Appiah WPtel: [address] [place], [place] [phone] [place] INJECTION 04/22/2014 Visit Plan: Rocephin and Kenalog today a nd finish abx given from urgent care 04/21/2014 Appointment: María Elena Appiah WPtel: [address] [place] [address] US INJECTION 04/21/2014 Patient Education: Patient Medication Summary Completed 04/21/2014 Appointment: June Flores WPtel: [address] [place] [address] ACUTE ILLNESS 03/04/2014 Patient Education: Patient Medication Summary Completed 03/04/2014 Appointment: María Elena Appiah WPtel: [address] [place] [address] US INJECTION 02/27/2014 Patient Education: Patient Medication Summary Completed 02/27/2014 Visit Plan: Cryotherapy as above to all lesions Patient wants to try no meds for insomnia for a while and see how goes 01/13/2014 Appointment: María Elena Appiah WPtel: [address] [place] [address] OFFICE SURGERY 01/13/2014 Patient Education: Patient Medication Summary Completed 01/13/2014 Visit Plan: Stop Melatonin Stop Soma Tri al of trazadone 75mg q HS See ENT for possible tubes as has had chronic ETD and serous otitis media with numerous steroids 12/24/2013 Appointment: María Elena Appiah WPtel: [address] [place] [address] ACUTE ILLNESS 12/24/2013 Patient Education: Patient Medication Summary Completed 12/24/2013 Visit Plan: Saline nasal flushes prn. Ty lenol/Motrin prn headache. Notify if persists/symptoms worsening. 11/12/2013 Appointment: María Elena Appiah WPtel: [address] [place] [address] ACUTE ILLNESS 11/12/2013 Patient Education: Patient Medication Summary Completed 11/12/2013 Appointment: María Elena Appiah WPtel: [address] [place] [address] ACUTE ILLNESS 10/21/2013 Patient Education: Patient Medication Summary Completed 10/21/2013 Visit Plan: Sleep hygiene and sleep rout ine Melatonin 10mg q HS Support stockings and observe 09/22/2013 Appointment: María Elena Appiah WPtel: [address] [place] [address] ACUTE ILLNESS 09/22/2013 Patient Education: Patient Medication Summary Completed 09/22/2013 Appointment: June Flores WPtel: [address] [place] [address] ACUTE ILLNESS 08/27/2013 Patient Education: Patient Medication Summary Completed 08/27/2013 Visit Plan: Proceed with CT scan of head /neck Proceed with occipital nerve injections Butrans 20mcg patch weekly until can get into see Dr. Mcdonough for injections 08/04/2013 Appointment: María Elena Appiah WPtel: [address] [place] [address] FOLLOW UP 08/04/2013 Patient Education: Patient Medication Summary Completed 08/04/2013 Visit Plan: OMT done Daily neck stretche s, moist heat Increase Celebrex to 200mg BID Add flexeril 07/23/2013 Appointment: María Elena Appiah WPtel: [address] [place] [address] 07/22 voicemail FOLLOW UP 07/23/2013 Patient Education: Patient Medication Summary Completed 07/23/2013 Appointment: María Elena Appiah WPtel: [address] [place] [address] ACUTE ILLNESS 06/23/2013 Patient Education: Patient Medication Summary Completed 06/23/2013 Appointment: María Elena Appiah WPtel: [address] [place] [address] ACUTE ILLNESS 05/26/2013 Patient Education: Patient Medication Summary Completed 05/26/2013 Visit Plan: Decrease clonidine to 0.1mg TID If BP remains stable consider decreasing amlodopine Prednisone for 5 days BP check in 1mo 04/16/2013 Appointment: María Elena Appiah WPtel: [address] [place] [address] 04/14 pt called and confirmed appt FOLLOW UP 04/16/2013 Patient Education: Patient Medication Summary Completed 04/16/2013 Appointment: María Elena Appiah WPtel: [address] [place] [address] ACUTE ILLNESS 03/05/2013 Patient Education: Patient Medication Summary Completed 03/05/2013 Visit Plan: Pt has MARIA ELENA on with Dr. Mcdonough Continue Butrans patch Refill Hydrocodone early tomorrow 12/23/2012 Appointment: María Elena Appiah WPtel: [address] [place] [address] FOLLOW UP 12/23/2012 Patient Education: Patient Medication Summary Completed 12/23/2012 Appointment: Lashawn Eckert WPtel: [address] [place] [address] ACUTE ILLNESS 12/16/2012 Patient Education: Patient Medication Summary Completed 12/16/2012 Visit Plan: Proceed with updated MRI of LS spine Continue gabapentin and add soma and diclofenac Will likely need to go for another epidural 12/09/2012 Appointment: María Elena Appiah WPtel: [address] [place] [address] ACUTE ILLNESS 12/09/2012 Patient Education: Patient Medication Summary Completed 12/09/2012 Visit Plan: Injection as above Finish me drol dose pack Chiropracter this afternoon 12/04/2012 Appointment: María Elena pApiah WPtel: [address] [place] [address] ACUTE ILLNESS 12/04/2012 Patient Education: Patient Medication Summary Completed 12/04/2012 Appointment: Mary Tillman WPtel: [address] [place] [address] FOLLOW UP 11/22/2012 Patient Education: Patient Medication Summary Completed 11/22/2012 Appointment: María Elena Appiah WPtel: [address] [place] [address] ACUTE ILLNESS 11/21/2012 Patient Education: Patient Medication Summary Completed 11/21/2012 Appointment: María Elena Appiah WPtel: [address] [place] [address] BP CHECK 11/07/2012 Patient Education: Patient Medication Summary Completed 11/07/2012 Visit Plan: reports extra clonidine and extra amlodipine and extra alprazalam. extra Ketolorac and promethazine last night. Bystolic 10 mg QAM and will continue all other blood pressure meds. Pt. encouraged to rest and hydrate. Discussed stroke and SC symptoms. Pt. instructed to seek ER eval if symptoms worsen or headache persists. Pt. agrees to ER eval/EMS transport if symptoms worsen. BP re-check. 10/29/2012 Appointment: Lashawn Eckert WPtel: [address] [place] [address] ACUTE ILLNESS 10/29/2012 Patient Education: Patient Medication Summary Completed 10/29/2012 Appointment: María Elena Appiah WPtel: [address] [place] [address] ACUTE ILLNESS 10/14/2012 Patient Education: Patient Medication Summary Completed 10/14/2012 Appointment: María Elena Appiah WPtel: [address] [place] [address] UA 09/27/2012 Patient Education: Patient Medication Summary Completed 09/27/2012 Appointment: María Elena Appiah WPtel: [address] [place] [address] ACUTE ILLNESS 09/25/2012 Patient Education: Patient Medication Summary Completed 09/25/2012 Appointment: María Elena Appiah WPtel: [address] [place], [place] [phone] BP CHECK 09/24/2012 Appointment: María Elena Appiah WPtel: [address] [place] [phone] ACUTE ILLNESS 08/29/2012 Patient Education: Patient Medication Summary Completed 08/29/2012 Visit Plan: Cryotherapy as above See Karlos m for right ear lesion--probable MOHs procedure Increase amlodopine to 10mg daily 08/12/2012 Appointment: María Elena Appiah WPtel: [address] [place], [place] [phone] OFFICE SURGERY 08/12/2012 Patient Education: Patient Medication Summary Completed 08/12/2012 Appointment: María Elena Appiah WPtel: [address] [place] [address] 05/03 vm on pt phone...pt called on 04/11 3 pt called wanting in had no one cancel so could not get her in for an appt sooner than 05/06. ACUTE ILLNESS 05/06/2012 Patient Education: Patient Medication Summary Completed 05/06/2012 Visit Plan: Pt wants to hold on any furt her sleep medications 04/03/2012 Appointment: María Elena Appiah WPtel: [address] [place], [place] [phone] FOLLOW UP 04/03/2012 Patient Education: Patient Medication Summary Completed 04/03/2012 Appointment: María Elena Appiah WPtel: [address] [place] [phone] FOLLOW UP 03/19/2012 Patient Education: Patient Medication Summary Completed 03/19/2012 Appointment: María Elena Appiah WPtel: [address] [place], [place] [phone] BP CHECK 02/22/2012 Patient Education: Patient Medication Summary Completed 02/22/2012 Appointment: María Elena Appiah WPtel: [address] [place] [address] BP CHECK 02/21/2012 Patient Education: Patient Medication Summary Completed 02/21/2012 Visit Plan: Doxycycline and bactroban fo r foot Supportive care on ankles and knees Add norvasc for BP 02/20/2012 Appointment: María Elena Appiah WPtel: [address] [place] [address] ER Follow UP 02/20/2012 Patient Education: Patient Medication Summary Completed 02/20/2012 Appointment: María Elena Appiah WPtel: [address] [place] [address] ACUTE ILLNESS 01/30/2012 Patient Education: Patient Medication Summary Completed 01/30/2012 Appointment: María Elena Appiah WPtel: [address] [place] [address] ACUTE ILLNESS 01/24/2012 Patient Education: Patient Medication Summary Completed 01/24/2012 Visit Plan: Daily back stretches, moist heat, Biofreeze prn OMT done 01/10/2012 Appointment: María Elena Appiah WPtel: [address] [place] [address] ACUTE ILLNESS 01/10/2012 Patient Education: Patient Medication Summary Completed 01/10/2012 Appointment: María Elena Appiah WPtel: [address] [place] [address] FOLLOW UP 12/11/2011 Patient Education: Patient Medication Summary Completed 12/11/2011 Appointment: María Elena Appiah WPtel: [address] [place] [address] ACUTE ILLNESS 11/09/2011 Patient Education: Patient Medication Summary Completed 11/09/2011 Appointment: María Elena Appiahtel: [address] [place] [address] ACUTE ILLNESS 09/13/2011 Patient Education: Patient Medication Summary Completed 09/13/2011 Visit Plan: Check CBC, TSH, Free T4, CMP , ESR, Vit D, B12 now Start Prednisone today 08/31/2011 Appointment: María Elena Appiahtel: [address] [place], [place] [id number] ACUTE ILLNESS 08/31/2011 Patient Education: Patient Medication Summary Completed 08/31/2011 Appointment: María Elena Appiah WPtel: [address] [place], [place] [phone] [place] INJECTION 07/20/2011 Patient Education: Patient Medication Summary Completed 07/20/2011 Visit Plan: Continue current meds Monite r BP Cont stretches from PT 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 07/06/2011 Appointment: María Elena Appiahtel: [address] [place] [address] FOLLOW UP 07/06/2011 Patient Education: Patient Medication Summary Completed 07/06/2011 Appointment: María Elena Appiah WPtel: [address] [place] [address] [place] BP CHECK 06/06/2011 Patient Education: Patient Medication Summary Completed 06/06/2011 Visit Plan: Add Bystolic at 2.5mg QAM Ad d Robaxin 750mg 2 po q HS BP check in 2wks 05/22/2011 Appointment: María Elena Appiahtel: [address] [place], [place] [phone] FOLLOW UP 05/22/2011 Patient Education: Patient Medication Summary Completed 05/22/2011 Appointment: María Elena Appiah WPtel: [address] [place] [address] ER Follow UP 05/09/2011 Patient Education: Patient Medication Summary Completed 05/09/2011 Appointment: María Elena Appiahtel: [address] [place], [place] [phone] [place] FOLLOW UP 02/22/2011 Visit Plan: Rx written for Hydrocodone 1 0/325mg #240 See Ortho 02/14/2011 Appointment: María Elena Appiah WPtel: [address] [place] [address] [place] OMT 02/14/2011 Patient Education: Patient Medication [...] lab work. 02/03/2011 Appointment: Lashawn Eckert WPtel: [address] [place] [address] ACUTE ILLNESS 02/03/2011 Patient Education: Patient Medication Summary Completed 02/03/2011 Visit Plan: OMT done Cont daily stretche s 01/31/2011 Appointment: María Elena Appiah WPtel: [address] [place] [address] ACUTE ILLNESS 01/31/2011 Patient Education: Patient Medication Summary Completed 01/31/2011 Visit Plan: Continue pain meds OMT done Proceed with PT No work this summer01/25/2011 Appointment: María Elena Appiah WPtel: [address] [place] [address] ACUTE ILLNESS 01/25/2011 Patient Education: Patient Medication Summary Completed 01/25/2011 Visit Plan: Start PT Long discussion abo ut getting pain meds from only us and can only have max of 4grams of tylenol per day Change to Hydrocodone 10/325mg 1- 2 po TID prn pain--#180 called to Radha 01/18/2011 Appointment: María Elena Appiah WPtel: [address] [place], [place] [phone] FOLLOW UP 01/18/2011 Patient Education: Patient Medication Summary Completed 01/18/2011 Visit Plan: Daily back stretches, moist heat, Biofreeze prn 11/29/2010 Appointment: María Elena Appiah WPtel: [address] [place], [place] [phone] ER Follow UP 11/29/2010 Patient Education: Patient Medication Summary Completed 11/29/2010 Visit Plan: Saline nasal flushes prn. Ty lenol/Motrin prn headache. Notify if persists/symptoms worsening. Finish augmentin Add Medrol Dose Pack 10/10/2010 Appointment: María Elena Appiah WPtel: [address] [place], [place] [phone] ACUTE ILLNESS 10/10/2010 Patient Education: Patient Medication Summary Completed 10/10/2010 Visit Plan: Cryotherapy x3 to multiple l esions on both forearms 07/19/2010 Appointment: María Elena Appiah WPtel: [address] [place] [address] OFFICE SURGERY 07/19/2010 Patient Education: Patient Medication Summary Completed 07/19/2010 Appointment: María Elena Appiahtel: [address] [place], [place] [phone] BP CHECK 07/06/2010 Patient Education: Patient Medication Summary Completed 07/06/2010 Appointment: María Elena Appiah WPtel: [address] [place], [place] [phone] BP CHECK 06/30/2010 Patient Education: Patient Medication Summary Completed 06/30/2010 Appointment: María Elena Appiahtel: [address] [place], [place] [phone] BP CHECK 06/20/2010 Patient Education: Patient Medication Summary Completed 06/20/2010 Visit Plan: Change Diovan to Exforge 160 /5mg QD OMT done to thoracics BP check in 2wks 06/07/2010 Appointment: María Elena Appiah WPtel: [address] [place] [address] FOLLOW UP 06/07/2010 Patient Education: Patient Medication Summary Completed 06/07/2010 Appointment: María Elena Appiah WPtel: [address] [place] [address] BP CHECK 06/03/2010 Patient Education: Patient Medication Summary Completed 06/03/2010 Appointment: María Elena Appiah WPtel: [address] [place] [address] BP CHECK 06/01/2010 Patient Education: Patient Medication Summary Completed 06/01/2010 Visit Plan: Irritated skin tags to left neck x2 excised at base with scissors and base cauterized 05/30/2010 Appointment: María Elena Appiah WPtel: [address] [place] [address] OFFICE SURGERY 05/30/2010 Patient Education: Patient Medication Summary Completed 05/30/2010 Visit Plan: Saline nasal flushes prn. Ty lenol/Motrin prn headache. Notify if persists/symptoms worsening. Restart Nasonex Has allergy testing set for May 25 04/27/2010 Appointment: María Elena Appiah WPtel: [address] [place] [address] ACUTE ILLNESS 04/27/2010 Patient Education: Patient Medication Summary Completed 04/27/2010 Visit Plan: Saline nasal flushes prn. Ty lenol/Motrin prn headache. Notify if persists/symptoms worsening. Omnaris BID plus injections 04/05/2010 Appointment: María Elena Appiah WPtel: [address] [place] [address] ACUTE ILLNESS 04/05/2010 Patient Education: Patient Medication Summary Completed 04/05/2010 Visit Plan: Saline nasal flushes prn. Ty lenol/Motrin prn headache. Notify if persists/symptoms worsening. 03/09/2010 Appointment: María Elena Appiah WPtel: [address] [place], [place] [phone] ACUTE ILLNESS 03/09/2010 Patient Education: Patient Medication Summary Completed 03/09/2010 Visit Plan: Cont Clonidine as is Cont Pr emarin Fwup with surgery as scheduled 03/03/2010 Appointment: María Elena Appiah WPtel: [address] [place] [address] FOLLOW UP 03/03/2010 Patient Education: Patient Medication Summary Completed 03/03/2010 Visit Plan: Check Pelvic US now Discusse d Dand C vs Hysterectomy 01/17/2010 Appointment: María Elena Appiah WPtel: [address] [place] [address] ACUTE ILLNESS 01/17/2010 Patient Education: Patient Medication Summary Completed 01/17/2010 Visit Plan: Check fasting lab and schedu le Mammogram 2gm Na Diet Trial of Ambien 10mg qhs Fwup pending lab results 12/27/2009 Appointment: María Elena Appiah WPtel: [address] [place] [address] ESTABLISHED PATIENT 12/27/2009 Patient Education: Patient Medication Summary Completed 12/27/2009 Referral: Canelo Overton WPtel: [address] [id number] [place] Referral Initiated Referral: Philipp Flores WPtel: [address] [id number] [place] Referral Appointment Requested Instructions Comment . [...] to rest and hydrate. Discussed stroke and SC symptoms. Pt. instructed to seek ER eval [...]
--- OUTSIDE RECORDS SUMMARY | 2020-03-13 05:09 | XMS REPORT | CCD ---
Author Author Gale Appiah D.O. Organization [facility] Address [address] [place] [id number] Phone Care Team Providers Care Customer Service Leader Name Role Phone María Elena Appiah D.O., PP Unavailable CCM Unavailable Summary Purpose Interface Exchange Insurance Providers Payer name Policy type / Coverage type Covered libertarian ID Effective Begin Date Effective End Date [facility] Commercial Insurance [id number] Unknown Family History Family History data not found Social History Social History Element Codes Description Effective Dates Tobacco history SNOMED CT: [id number] Never smoker 05/22/2011 Allergies, Adverse Reactions, Alerts [...] Start Date Stop Date Status Fill Instructions triamterene 75 mg-hydrochlorothiazide 50 mg tablet RxNorm: 3 01410 TAKE ONE TABLET BY MOUTH DAILY 12/29/2019 No Stop Date Active Klor-Con 8 mEq tablet,extended release RxNorm: 943844 T FARRUKH ONE TABLET BY MOUTH TWICE A DAY 12/19/2019 No Stop Date Active allopurinol 300 mg tablet RxNorm: 347840 TAKE ONE TABLET BY LOPEZ TH DAILY 12/19/2019 No Stop Date Active glimepiride 2 mg tablet RxNorm: 181791 TAKE ONE TABLET BY MOUTH TWICE A DAY 12/19/2019 No Stop Date Active hydrocodone 10 mg-acetaminophen 325 mg tablet RxNorm: 632152 1-2 Tablet(s) Oral three times a day as needed for pain 12/10/2019 No Stop Date Active Januvia 100 mg tablet RxNorm: 685094 1 Tablet(s) Oral QD 11/20/2019 0 11/20/2019 Inactive glimepiride 2 mg tablet RxNorm: 300302 1 Tablet(s) Oral two sawyer es a day 11/20/2019 12/18/2019 Inactive cyclobenzaprine 10 mg tablet RxNorm: 375463 TAKE ONE TA BLET BY MOUTH THREE TIMES A DAY NEEDED FOR MUSCLE SPASMS 11/17/2019 No Stop Date Active doxepin 25 mg capsule RxNorm: 2592480 TAKE ONE CAPSULE B Y MOUTH EVERY NIGHT AT BEDTIME NEEDED FOR SLEEP 11/16/2019 No Stop Date Active Klor-Con 8 mEq tablet,extended release RxNorm: 348592 T FARRUKH ONE TABLET BY MOUTH TWICE A DAY 11/16/2019 12/18/2019 Inactive hydrocodone 10 mg-acetaminophen 325 mg tablet RxNorm: 399744 1-2 Tablet(s) Oral three times a day as needed for pain 11/10/2019 12/09/2019 Inactive cyclobenzaprine 10 mg tablet RxNorm: 640759 TAKE ONE TA BLET BY MOUTH THREE TIMES A DAY NEEDED FOR MUSCLE SPASMS 10/23/2019 11/16/2019 Inactive duloxetine 60 mg capsule,delayed release RxNorm: 833589 1 Capsu le(s) Oral QD 10/17/2019 04/13/2020 Active celecoxib 200 mg capsule RxNorm: 107335 1 Capsule(s) Or al two times a day as needed for pain 10/17/2019 01/14/2020 Active lisinopril 20 mg tablet RxNorm: 359475 1 Tablet(s) Oral QD 10/17/1904/13/2020 Active gabapentin 300 mg capsule RxNorm: 855459 1 Capsule(s) O ral every night at bedtime 10/17/2019 01/15/2020 Active Singulair 10 mg tablet RxNorm: 554340 1 Tablet(s) Oral QD 10/17/2019 04/14/2020 Active metoprolol tartrate 100 mg tablet RxNorm: 462020 1 Tabl et(s) Oral two times a day 10/17/2019 04/13/2020 Active clonidine HCl 0.1 mg tablet RxNorm: 634123 1 Tablet(s) Oral fou r times a day 10/17/2019 04/13/2020 Active Januvia 100 mg tablet RxNorm: 635457 1 Tablet(s) Oral QD 10/17/2019 No Stop Date Active Lipitor 10 mg tablet RxNorm: 902084 1 Tablet(s) Oral QD 10/17/2019 Active Steglatro 15 mg tablet RxNorm: 4659921 1 Tablet(s) Oral QD 10/17/19 No Stop Date Active Klor-Con 8 mEq tablet,extended release RxNorm: 110081 1 Tablet(s) Oral two times a day 10/17/2019 11/15/2019 Inactive Glyxambi 25 mg-5 mg tablet RxNorm: 6177269 1 Tablet(s) Oral QD 01/202010/16/2019 Inactive Patient will bring in copay discount card as well Glyxambi 25 mg-5 mg tablet RxNorm: 0911559 1 Tablet(s) Oral QD 01/202010/14/2019 Inactive Patient will bring in copay discount card as well Keflex 500 mg capsule RxNorm: 903261 1 Capsule(s) Oral two time s a day 10/07/2019 10/14/2019 Inactive Premarin 1.25 mg tablet RxNorm: 794589 1 Tablet(s) Oral QD 09/30/1906/25/2020 Active hydrocodone 10 mg-acetaminophen 325 mg tablet RxNorm: 346974 1-2 Tablet(s) Oral three times a day as needed for pain 09/30/2019 09/30/2019 Inactive baclofen 10 mg tablet RxNorm: 313840 TAKE ONE TABLET BY MOUTH THREE TIMES A DAY NEEDED 09/19/2019 No Stop Date Active gabapentin 300 mg capsule RxNorm: 094444 TAKE ONE CAPSU LE BY MOUTH EVERY NIGHT AT BEDTIME 09/19/2019 10/16/2019 Inactive Klor-Con 8 mEq tablet,extended release RxNorm: 289565 T FARRUKH ONE TABLET BY MOUTH TWICE A DAY 1 Tablet(s) Oral two times a day 09/19/2019 10/16/2019 Renu ctive hydrocodone 10 mg-acetaminophen 325 mg tablet RxNorm: 439442 1-2 Tablet(s) Oral three times a day as needed for pain 09/19/2019 09/29/2019 Inactive duloxetine 60 mg capsule,delayed release RxNorm: 884984 TAKE ONE CAPSULE BY MOUTH DAILY 09/11/2019 10/16/2019 Inactive Lipitor 10 mg tablet RxNorm: 508592 TAKE ONE TABLET BY MOUTH AT BEDTIME 09/11/2019 10/16/2019 Inactive lisinopril 20 mg tablet RxNorm: 766040 TAKE ONE TABLET BY MOUTH DAILY .... THIS REPLACE 10MG TABLETS 09/11/2019 10/16/2019 Inactive triamterene 75 mg-hydrochlorothiazide 50 mg tablet RxNorm: 3 61934 TAKE ONE TABLET BY MOUTH DAILY 09/11/2019 12/28/2019 Inactive allopurinol 300 mg tablet RxNorm: 312612 TAKE ONE TABLET BY LOPEZ TH DAILY 09/11/2019 12/18/2019 Inactive celecoxib 200 mg capsule RxNorm: 962575 TAKE ONE CAPSUL E BY MOUTH TWICE A DAY NEEDED FOR PAIN 09/11/2019 10/16/2019 Inactive clonidine HCl 0.1 mg tablet RxNorm: 898801 TAKE ONE TAB LET BY MOUTH FOUR TIMES A DAY 09/11/2019 10/16/2019 Inactive doxepin 25 mg capsule RxNorm: 0115534 1 Capsule(s) Oral every night at bedtime as needed for sleep 08/21/2019 11/15/2019 Inactive hydrocodone 10 mg-acetaminophen 325 mg tablet RxNorm: 240151 1-2 Tablet(s) PO TID 08/12/2019 09/29/2019 Inactive as needed for pa in - Previous quantity #240, will start dosing for #180 in April 2011 per Doctor Td. Medrol (Dustin) 4 mg tablets in a dose pack RxNorm: 161027 Tablet(s) Oral As Directed 07/21/2019 09/29/2019 Inactive Premarin 1.25 mg tablet RxNorm: 807215 1 Tablet(s) Oral QD 07/02/20 19 09/29/2019 Inactive hydrocodone 10 mg-acetaminophen 325 mg tablet RxNorm: 798075 1-2 Tablet(s) PO TID 07/01/2019 08/11/2019 Inactive as needed for pa in - Previous quantity #240, will start dosing for #180 in April 2011 per Doctor Td. gabapentin 300 mg capsule RxNorm: 540656 1 Capsule(s) PO QHS 201809/18/2019 Inactive celecoxib 200 mg capsule RxNorm: 919192 1 Capsule(s) Or al two times a day as needed for pain 06/27/2019 06/27/2019 Inactive furosemide 40 mg tablet RxNorm: 565617 TAKE ONE TABLET BY MOUTH EVERY MORNING NEEDED FOR EDEMA . TAKE WITH POTASSIUM 06/24/2019 No Stop Date Active doxepin 25 mg capsule RxNorm: 0371491 TAKE ONE CAPSULE B Y MOUTH EVERY NIGHT AT BEDTIME NEEDED FOR SLEEP 06/24/2019 08/20/2019 Inactive Singulair 10 mg tablet RxNorm: 549856 TAKE ONE TABLET BY MOUTH JOSÉ Y 06/24/2019 10/16/2019 Inactive lisinopril 20 mg tablet RxNorm: 030969 TAKE ONE TABLET BY MOUTH DAILY .... THIS REPLACE 10MG TABLETS 06/24/2019 09/10/2019 Inactive nystatin-triamcinolone 100,000 unit/g-0.1 % topical cream Rx Norm: 8212628 1 Application Topical two times a day 06/12/2019 06/19/2019 Inactive apply BID for 1 week nystatin-triamcinolone 100,000 unit/g-0.1 % topical cream Rx Norm: 9913838 1 Application Topical two times a day 06/12/2019 06/11/2019 Inactive apply BID for 1 week hydrocodone 10 mg-acetaminophen 325 mg tablet RxNorm: 895711 1-2 Tablet(s) PO QID as needed for pain MUST LAST 30 DAYS 05/28/2019 06/26/2019 Inactiv e (Response to an electronic controlled substance refill request - RxReferenceNumber: [id number]) baclofen 20 mg tablet RxNorm: 503506 1 Tablet(s) PO TID as needed for muscle spasm 05/19/2019 05/27/2019 Inactive gabapentin 300 mg capsule RxNorm: 841926 1 Capsule(s) PO QHS 201805/27/2019 Inactive lisinopril 20 mg tablet RxNorm: 587623 1 Tablet(s) PO Q D TAKE ONE TABLET BY MOUTH DAILY, REPLACES 10 MG DOSE 05/19/2019 06/23/2019 Inactive doxepin 25 mg capsule RxNorm: 3375775 TAKE ONE CAPSULE B Y MOUTH EVERY NIGHT AT BEDTIME NEEDED FOR SLEEP 05/16/2019 06/14/2019 Inactive lisinopril 20 mg tablet RxNorm: 728832 TAKE ONE TABLET BY MOUTH DAILY, REPLACES 10 MG DOSE 05/16/2019 05/18/2019 Inactive Singulair 10 mg tablet RxNorm: 164006 TAKE ONE TABLET BY MOUTH JOSÉ Y 05/16/2019 06/14/2019 Inactive gabapentin 300 mg capsule RxNorm: 909662 1 Capsule(s) PO QHS 201805/04/2019 Inactive estropipate 1.5 mg tablet RxNorm: 772195 1 Tablet(s) PO QD 05/05/2005/27/2019 Inactive estropipate 1.5 mg tablet RxNorm: 479331 1 Tablet(s) PO QD 05/05/2005/04/2019 Inactive gabapentin 300 mg capsule RxNorm: 312170 1 Capsule(s) PO QHS 201805/18/2019 Inactive hydrocodone 10 mg-acetaminophen 325 mg tablet RxNorm: 836554 1-2 Tablet(s) PO QID as needed for pain MUST LAST 30 DAYS 04/25/2019 05/24/2019 Inactiv e (Response to an electronic controlled substance refill request - RxReferenceNumber: [id number]) cyclobenzaprine 10 mg tablet RxNorm: 385169 TAKE ONE TA BLET BY MOUTH THREE TIMES A DAY NEEDED FOR MUSCLE SPASMS 04/24/2019 05/18/2019 Inactive metoprolol tartrate 100 mg tablet RxNorm: 713212 TAKE O NE TABLET BY MOUTH TWICE A DAY 04/24/2019 10/16/2019 Inactive Lyrica 75 mg capsule RxNorm: 756185 1 Capsule(s) PO QHS 03/25/2019 Inactive duloxetine 60 mg capsule,delayed release RxNorm: 566134 TAKE ONE CAPSULE BY MOUTH DAILY 03/21/2019 05/19/2019 Inactive triamterene 75 mg-hydrochlorothiazide 50 mg tablet RxNorm: 3 08468 TAKE ONE TABLET BY MOUTH DAILY 03/21/2019 05/19/2019 Inactive Klor-Con 8 mEq tablet,extended release RxNorm: 362967 T FARRUKH ONE TABLET BY MOUTH TWICE A DAY 03/21/2019 09/18/2019 Inactive Lipitor 10 mg tablet RxNorm: 481835 TAKE ONE TABLET BY MOUTH AT BEDTIME 03/21/2019 09/10/2019 Inactive clonidine HCl 0.1 mg tablet RxNorm: 904945 TAKE ONE TAB LET BY MOUTH FOUR TIMES A DAY 03/21/2019 05/19/2019 Inactive allopurinol 300 mg tablet RxNorm: 159847 TAKE ONE TABLET BY LOPEZ TH DAILY 03/21/2019 05/19/2019 Inactive hydrocodone 10 mg-acetaminophen 325 mg tablet RxNorm: 838734 1-2 Tablet(s) PO QID as needed for pain MUST LAST 30 DAYS 02/28/2019 03/29/2019 Inactiv e (Response to an electronic controlled substance refill request - RxReferenceNumber: [id number]) furosemide 40 mg tablet RxNorm: 542704 TAKE ONE TABLET BY MOUTH EVERY MORNING NEEDED FOR EDEMA . TAKE WITH POTASSIUM 02/21/2019 03/22/2019 Inactive cyclobenzaprine 10 mg tablet RxNorm: 608454 TAKE ONE TA BLET BY MOUTH THREE TIMES A DAY NEEDED FOR MUSCLE SPASMS 02/21/2019 04/21/2019 Inactive lisinopril 20 mg tablet RxNorm: 075340 TAKE ONE TABLET BY MOUTH DAILY, REPLACES 10 MG DOSE 02/21/2019 05/15/2019 Inactive doxepin 25 mg capsule RxNorm: 3853436 TAKE ONE CAPSULE B Y MOUTH EVERY NIGHT AT BEDTIME NEEDED FOR SLEEP 02/21/2019 05/15/2019 Inactive nystatin 100,000 unit/gram topical cream RxNorm: 486253 APPLY TO AFFECTED AREA(S) TWO TIMES A DAY 02/21/2019 03/22/2019 Inactive estradiol 1 mg tablet RxNorm: 187707 2 Tablet(s) PO QD replaces premarin 01/22/2019 05/04/2019 Inactive lisinopril 20 mg tablet RxNorm: 781944 TAKE ONE TABLET BY MOUTH DAILY, REPLACES 10 MG DOSE 01/20/2019 02/18/2019 Inactive cyclobenzaprine 10 mg tablet RxNorm: 599713 TAKE ONE TA BLET BY MOUTH THREE TIMES A DAY NEEDED FOR MUSCLE SPASMS 01/20/2019 02/18/2019 Inactive metoprolol tartrate 100 mg tablet RxNorm: 688849 TAKE O NE TABLET BY MOUTH TWICE A DAY 01/20/2019 02/18/2019 Inactive cyclobenzaprine 10 mg tablet RxNorm: 578717 TAKE ONE TA BLET BY MOUTH THREE TIMES A DAY NEEDED FOR MUSCLE SPASMS 12/19/2018 01/17/2019 Inactive lisinopril 20 mg tablet RxNorm: 155457 TAKE ONE TABLET BY MOUTH DAILY, REPLACES 10 MG DOSE 12/19/2018 01/17/2019 Inactive duloxetine 60 mg capsule,delayed release RxNorm: 426652 TAKE ONE CAPSULE BY MOUTH DAILY 12/19/2018 01/17/2019 Inactive Lipitor 10 mg tablet RxNorm: 796387 TAKE ONE TABLET BY MOUTH AT BEDTIME 12/19/2018 01/17/2019 Inactive cyclobenzaprine 10 mg tablet RxNorm: 675183 1 Tablet(s) PO TID as needed for muscle spasm 11/19/2018 12/18/2018 Inactive Singulair 10 mg tablet RxNorm: 068036 1 Tablet(s) PO QD 11/19/2018 Inactive lisinopril 20 mg tablet RxNorm: 964335 TAKE ONE TABLET BY MOUTH DAILY, REPLACES 10 MG DOSE 11/15/2018 12/18/2018 Inactive hydrocodone 10 mg-acetaminophen 325 mg tablet RxNorm: 592282 1-2 Tablet(s) PO QID as needed for pain MUST LAST 30 DAYS 11/13/2018 12/12/2018 Inactiv e (Response to an electronic controlled substance refill request - RxReferenceNumber: [id number]) nystatin 100,000 unit/gram topical cream RxNorm: 186874 APPLY TO AFFECTED AREA(S) TWO TIMES A DAY 10/23/2018 11/06/2018 Inactive lisinopril 20 mg tablet RxNorm: 749945 1 Tablet(s) PO QD replac es 10mg dose 10/18/2018 11/14/2018 Inactive hydrocodone 10 mg-acetaminophen 325 mg tablet RxNorm: 502480 1-2 Tablet(s) QID as needed for pain MUST LAST 30 DAYS 10/08/2018 11/06/2018 Inactive (Response to an electronic controlled substance refill request - RxReferenceNumber: [id number]) lisinopril 10 mg tablet RxNorm: 901299 1 Tablet(s) PO QD 10/03/2018 0 01/21/2019 Inactive Celebrex 200 mg capsule RxNorm: 053642 TAKE ONE CAPSULE BY MOUT H TWICE A DAY 09/30/2018 05/04/2019 Inactive cyclobenzaprine 10 mg tablet RxNorm: 489006 TAKE ONE TA BLET BY MOUTH THREE TIMES A DAY NEEDED FOR MUSCLE SPASMS 09/30/2018 11/18/2018 Inactive doxepin 25 mg capsule RxNorm: 3653593 TAKE ONE CAPSULE B Y MOUTH EVERY NIGHT AT BEDTIME NEEDED 09/05/2018 10/16/2018 Inactive omeprazole 40 mg capsule,delayed release RxNorm: 931773 TAKE ONE CAPSULE BY MOUTH DAILY 09/05/2018 01/21/2019 Inactive furosemide 40 mg tablet RxNorm: 528453 TAKE ONE TABLET BY MOUTH EVERY MORNING NEEDED FOR EDEMA . TAKE WITH POTASSIUM 09/05/2018 11/03/2018 Inactive phentermine 37.5 mg tablet RxNorm: 336546 1 Tablet(s) PO QAM 201701/21/2019 Inactive doxepin 25 mg capsule RxNorm: 9836763 1 Capsule(s) PO QH S as needed for sleep TAKE ONE CAPSULE BY MOUTH EVERY NIGHT AT BEDTIME NEEDED 08/27/2018 09/04/2018 Inactive Keflex 500 mg capsule RxNorm: 534262 1 Capsule(s) PO TID 08/09/2018 1 10/19/2017 Inactive Diflucan 100 mg tablet RxNorm: 323645 1 Tablet(s) PO QD 08/09/2018 Inactive Premarin 1.25 mg tablet RxNorm: 432099 2 Tablet(s) PO QD 08/09/2018 0 05/04/2019 Inactive Zofran ODT 4 mg disintegrating tablet RxNorm: 995835 1 Tablet(s) PO Q4H as needed for nausea 08/09/2018 01/21/2019 Inactive metoprolol tartrate 100 mg tablet RxNorm: 809408 TAKE O NE TABLET BY MOUTH TWICE A DAY 2018 10/04/2018 Inactive doxepin 25 mg capsule RxNorm: 0625417 TAKE ONE CAPSULE B Y MOUTH EVERY NIGHT AT BEDTIME NEEDED 2018 08/26/2018 Inactive cyclobenzaprine 10 mg tablet RxNorm: 679198 TAKE ONE TA BLET BY MOUTH THREE TIMES A DAY NEEDED FOR MUSCLE SPASMS 2018 09/29/2018 Inactive hydrocodone 10 mg-acetaminophen 325 mg tablet RxNorm: 218624 1-2 Tablet(s) QID as needed for pain MUST LAST 30 DAYS 07/29/2018 08/27/2018 Inactive (Response to an electronic controlled substance refill request - RxReferenceNumber: [id number]) nystatin 100,000 unit/gram topical powder RxNorm: 231679 Applic ation TOP BID 07/22/2018 08/04/2018 Inactive doxepin 25 mg capsule RxNorm: 0703339 1 Capsule(s) PO QHS as needed 07/22/2018 08/05/2018 Inactive triamterene 75 mg-hydrochlorothiazide 50 mg tablet RxNorm: 3 02792 TAKE ONE TABLET BY MOUTH DAILY 07/05/2018 10/02/2018 Inactive duloxetine 60 mg capsule,delayed release RxNorm: 232153 TAKE ONE CAPSULE BY MOUTH DAILY 07/05/2018 09/02/2018 Inactive Klor-Con 8 mEq tablet,extended release RxNorm: 419265 T FARRUKH ONE TABLET BY MOUTH TWICE A DAY 07/05/2018 10/02/2018 Inactive Lipitor 10 mg tablet RxNorm: 945630 TAKE ONE TABLET BY MOUTH AT BEDTIME 07/05/2018 09/02/2018 Inactive allopurinol 300 mg tablet RxNorm: 751120 TAKE ONE TABLET BY LOPEZ TH DAILY 07/05/2018 10/02/2018 Inactive clonidine HCl 0.1 mg tablet RxNorm: 914420 TAKE ONE TAB LET BY MOUTH FOUR TIMES A DAY 07/05/2018 10/02/2018 Inactive hydrocodone 10 mg-acetaminophen 325 mg tablet RxNorm: 496967 1-2 Tablet(s) QID as needed for pain MUST LAST 30 DAYS 06/28/2018 07/27/2018 Inactive (Response to an electronic controlled substance refill request - RxReferenceNumber: [id number]) MediHoney (calcium alginate-honey) 4" X 5" bandage RxNorm: 1 Application TOP QD 06/17/2018 06/26/2018 Inactive honey-hydrocolloid dressing 4" X 5" RxNorm: 1 Application TOP QD 06/17/2018 07/16/2018 Inactive furosemide 40 mg tablet RxNorm: 800634 TAKE ONE TABLET BY MOUTH EVERY MORNING NEEDED FOR EDEMA . TAKE WITH POTASSIUM 06/10/2018 07/09/2018 Inactive This is a refill request. hydrocodone 10 mg-acetaminophen 325 mg tablet RxNorm: 286825 1-2 Tablet(s) QID as needed for pain MUST LAST 30 DAYS 05/30/2018 06/27/2018 Inactive (Response to an electronic controlled substance refill request - RxReferenceNumber: [id number]) acyclovir 800 mg tablet RxNorm: 189768 1 Tablet(s) PO 5x day 201705/22/2018 Inactive Premarin 1.25 mg tablet RxNorm: 066936 1-2 Tablet(s) PO QD 05/15/20 18 07/13/2018 Inactive cyclobenzaprine 10 mg tablet RxNorm: 218317 1 Tablet(s) PO TID as needed for muscle spasm 05/09/2018 05/08/2018 Inactive Medrol (Dustin) 4 mg tablets in a dose pack RxNorm: 403796 Tablet(s) PO As Directed 05/02/2018 06/16/2018 Inactive hydrocodone 10 mg-acetaminophen 325 mg tablet RxNorm: 293206 1-2 Tablet(s) QID as needed for pain MUST LAST 30 DAYS 04/30/2018 05/29/2018 Inactive (Response to an electronic controlled substance refill request - RxReferenceNumber: [id number]) duloxetine 60 mg capsule,delayed release RxNorm: 589538 TAKE ONE CAPSULE BY MOUTH DAILY 04/16/2018 05/15/2018 Inactive Celebrex 200 mg capsule RxNorm: 386288 TAKE ONE CAPSULE BY MOUT H TWICE A DAY 04/16/2018 06/14/2018 Inactive Singulair 10 mg tablet RxNorm: 171560 TAKE ONE TABLET BY MOUTH JOSÉ Y 04/16/2018 11/19/2018 Inactive Lipitor 10 mg tablet RxNorm: 161959 TAKE ONE TABLET BY MOUTH AT BEDTIME 04/16/2018 05/15/2018 Inactive hydrocodone 10 mg-acetaminophen 325 mg tablet RxNorm: 747099 1-2 Tablet(s) QID as needed for pain MUST LAST 30 DAYS 03/29/2018 04/27/2018 Inactive (Response to an electronic controlled substance refill request - RxReferenceNumber: [id number]) cyclobenzaprine 10 mg tablet RxNorm: 652977 1 Tablet(s) PO TID as needed for muscle spasm 03/18/2018 05/09/2018 Inactive omeprazole 40 mg capsule,delayed release RxNorm: 272519 1 Capsu le(s) PO QD 02/26/2018 08/24/2018 Inactive hydrocodone 10 mg-acetaminophen 325 mg tablet RxNorm: 036248 1-2 Tablet(s) QID as needed for pain MUST LAST 30 DAYS 02/26/2018 03/27/2018 Inactive (Response to an electronic controlled substance refill request - RxReferenceNumber: [id number]) metoprolol tartrate 100 mg tablet RxNorm: 992689 1 Tablet(s) PO BID 02/18/2018 08/05/2018 Inactive Lyrica 75 mg capsule RxNorm: 187152 1 Capsule(s) PO QHS 01/30/2018 Inactive phentermine 37.5 mg tablet RxNorm: 746455 1 Tablet(s) PO QAM 201706/16/2018 Inactive hydrocodone 10 mg-acetaminophen 325 mg tablet RxNorm: 734350 1-2 Tablet(s) QID as needed for pain MUST LAST 30 DAYS 01/29/2018 02/25/2018 Inactive (Response to an electronic controlled substance refill request - RxReferenceNumber: [id number]) Klor-Con 8 mEq tablet,extended release RxNorm: 193221 1 Tablet( s) PO BID 01/14/2018 07/04/2018 Inactive allopurinol 300 mg tablet RxNorm: 310999 1 Tablet(s) PO QD 01/15/2007/04/2018 Inactive Lipitor 10 mg tablet RxNorm: 762088 1 Tablet(s) PO QHS 01/14/201812/2017 Inactive triamterene 75 mg-hydrochlorothiazide 50 mg tablet RxNorm: 3 63906 1 Tablet(s) PO QD 01/14/2018 07/04/2018 Inactive hydrocodone 10 mg-acetaminophen 325 mg tablet RxNorm: 435583 1-2 Tablet(s) QID as needed for pain MUST LAST 30 DAYS 12/27/2017 01/25/2018 Inactive (Response to an electronic controlled substance refill request - RxReferenceNumber: [id number]) Onglyza 5 mg tablet RxNorm: 915804 1 Tablet(s) PO QD 12/18/201701/29 Inactive metformin 500 mg tablet RxNorm: 481623 1 Tablet(s) PO BID 12/11/2017 12/10/2017 Inactive metformin 500 mg tablet RxNorm: 673050 1 Tablet(s) PO BID 12/11/2017 12/17/2017 Inactive furosemide 40 mg tablet RxNorm: 212543 1 Tablet(s) PO Q AM prn edema--take with potassium 12/11/2017 06/08/2018 Inactive cyclobenzaprine 10 mg tablet RxNorm: 026092 1 Tablet(s) PO TID as needed for muscle spasm 12/11/2017 03/18/2018 Inactive hydrocodone 10 mg-acetaminophen 325 mg tablet RxNorm: 200362 1-2 Tablet(s) QID as needed for pain MUST LAST 30 DAYS 10/23/2017 11/21/2017 Inactive (Response to an electronic controlled substance refill request - RxReferenceNumber: [id number]) Lipitor 10 mg tablet RxNorm: 800441 1 Tablet(s) PO QHS 10/16/201703/2018 Inactive cyclobenzaprine 10 mg tablet RxNorm: 271699 1 Tablet(s) PO TID as needed for muscle spasm 10/09/2017 12/10/2017 Inactive hydroxyzine HCl 25 mg tablet RxNorm: 750555 1 Tablet(s) PO BID as needed for anxiety 09/20/2017 01/29/2018 Inactive Effexor XR 75 mg capsule,extended release RxNorm: 898279 1 Caps ule(s) PO QD 09/20/2017 01/29/2018 Inactive metoprolol tartrate 100 mg tablet RxNorm: 144509 1 Tablet(s) PO BID 08/20/2017 02/18/2018 Inactive baclofen 20 mg tablet RxNorm: 523671 1 Tablet(s) PO TID as needed for muscle spasm 08/20/2017 01/21/2019 Inactive clonidine HCl 0.1 mg tablet RxNorm: 815655 1 Tablet(s) PO QID 08/2005/16/2018 Inactive Seroquel 25 mg tablet RxNorm: 114882 1 Tablet(s) PO QHS 08/17/2017 Inactive Seroquel 25 mg tablet RxNorm: 599267 1 Tablet(s) PO QHS 08/17/2017 Inactive Diflucan 100 mg tablet RxNorm: 282016 TAKE ONE TABLET BY MOUTH JOSÉ Y 07/25/2017 08/07/2017 Inactive hydrocodone 10 mg-acetaminophen 325 mg tablet RxNorm: 980757 1-2 Tablet(s) QID as needed for pain MUST LAST 30 DAYS 07/19/2017 08/17/2017 Inactive (Response to an electronic controlled substance refill request - RxReferenceNumber: [id number]) clindamycin 300 mg capsule RxNorm: 169543 1 Capsule(s) PO TID 07/1907/28/2017 Inactive clotrimazole-betamethasone 1 %-0.05 % topical cream RxNorm: 342702 Application TOP BID to elbow rash 07/19/2017 06/16/2018 Inactive Singulair 10 mg tablet RxNorm: 606600 Tablet(s) TAKE ONE TABLET BY MOUTH DAILY 07/18/2017 04/13/2018 Inactive triamterene 75 mg-hydrochlorothiazide 50 mg tablet RxNorm: 3 01865 1 Tablet(s) PO QD 07/18/2017 01/14/2018 Inactive Celebrex 200 mg capsule RxNorm: 937368 Capsule(s) TAKE ONE CAPSULE BY MOUTH TWICE A DAY 07/18/2017 10/15/2017 Inactive hydrocodone 10 mg-acetaminophen 325 mg tablet RxNorm: 904665 1-2 Tablet(s) QID as needed for pain MUST LAST 30 DAYS 06/19/2017 07/18/2017 Inactive (Response to an electronic controlled substance refill request - RxReferenceNumber: [id number]) hydrocodone 10 mg-acetaminophen 325 mg tablet RxNorm: 549596 1-2 Tablet(s) QID as needed for pain MUST LAST 30 DAYS 06/19/2017 06/18/2017 Inactive (Response to an electronic controlled substance refill request - RxReferenceNumber: [id number]) baclofen 20 mg tablet RxNorm: 957444 1 Tablet(s) PO TID as needed for muscle spasm 06/18/2017 08/20/2017 Inactive Medrol (Dustin) 4 mg tablets in a dose pack RxNorm: 152022 Tablet(s) PO As Directed 06/05/2017 07/18/2017 Inactive omeprazole 40 mg capsule,delayed release RxNorm: 962441 1 Capsu le(s) PO QD 04/20/2017 10/16/2017 Inactive Premarin 1.25 mg tablet RxNorm: 179130 1-2 Tablet(s) PO QD 04/11/20 17 05/15/2018 Inactive duloxetine 60 mg capsule,delayed release RxNorm: 545159 1 Capsu le(s) PO QD 04/11/2017 09/19/2017 Inactive furosemide 40 mg tablet RxNorm: 135221 1 Tablet(s) PO Q AM prn edema--take with potassium 04/11/2017 12/11/2017 Inactive Klor-Con 8 mEq tablet,extended release RxNorm: 406067 1 Tablet( s) PO BID 04/11/2017 01/14/2018 Inactive Lipitor 10 mg tablet RxNorm: 541554 1 Tablet(s) PO QHS 04/11/201702/2018 Inactive amlodipine 5 mg-benazepril 20 mg capsule RxNorm: 066250 1 Capsu le(s) PO QD 04/11/2017 01/29/2018 Inactive allopurinol 300 mg tablet RxNorm: 051683 1 Tablet(s) PO QD 04/11/20 17 01/14/2018 Inactive clonidine HCl 0.1 mg tablet RxNorm: 004806 1 Tablet(s) PO QID 04/0508/19/2017 Inactive baclofen 20 mg tablet RxNorm: 710912 1 Tablet(s) PO TID as needed for muscle spasm 04/02/2017 06/18/2017 Inactive Premarin 1.25 mg tablet RxNorm: 481336 1-2 Tablet(s) PO QD 03/20/20 17 04/10/2017 Inactive hydrocodone 10 mg-acetaminophen 325 mg tablet RxNorm: 723460 1-2 Tablet(s) QID as needed for pain MUST LAST 30 DAYS 03/14/2017 01/21/2019 Inactive (Response to an electronic controlled substance refill request - RxReferenceNumber: [id number]) metoprolol tartrate 100 mg tablet RxNorm: 133762 1 Tablet(s) PO BID 02/12/2017 08/20/2017 Inactive hydrocodone 10 mg-acetaminophen 325 mg tablet RxNorm: 610828 1-2 Tablet(s) QID as needed for pain MUST LAST 30 DAYS 02/08/2017 03/09/2017 Inactive (Response to an electronic controlled substance refill request - RxReferenceNumber: [id number]) metoprolol tartrate 100 mg tablet RxNorm: 919874 TAKE O NE TABLET BY MOUTH TWICE A DAY 01/11/2017 02/12/2017 Inactive metoprolol tartrate 100 mg tablet RxNorm: 018639 1 Tablet(s) PO BID 12/18/2016 12/17/2016 Inactive metoprolol tartrate 100 mg tablet RxNorm: 736351 1 Tablet(s) PO BID 12/18/2016 01/10/2017 Inactive furosemide 40 mg tablet RxNorm: 708012 1 Tablet(s) PO Q AM prn edema--take with potassium 12/13/2016 02/10/2017 Inactive amitriptyline 100 mg tablet RxNorm: 305564 1 Tablet(s) PO QHS 11/2812/12/2016 Inactive baclofen 20 mg tablet RxNorm: 834382 1 Tablet(s) PO TID as needed for muscle spasm 11/14/2016 04/01/2017 Inactive triamterene 75 mg-hydrochlorothiazide 50 mg tablet RxNorm: 3 21180 1 Tablet(s) PO QD 11/14/2016 11/13/2016 Inactive metolazone 2.5 mg tablet RxNorm: 991120 TAKE ONE TABLET BY MOUTH DAILY NEEDED FOR EDEMA 11/14/2016 12/12/2016 Inactive triamterene 75 mg-hydrochlorothiazide 50 mg tablet RxNorm: 3 33807 1 Tablet(s) PO QD 11/14/2016 07/18/2017 Inactive amitriptyline 50 mg tablet RxNorm: 443165 TAKE ONE TABL ET BY MOUTH AT BEDTIME NEEDED FOR SLEEP 11/14/2016 11/27/2016 Inactive Cymbalta 60 mg capsule,delayed release RxNorm: 248938 1 Capsule (s) PO QHS 11/14/2016 12/12/2016 Inactive clonidine HCl 0.1 mg tablet RxNorm: 209660 1 Tablet(s) PO QID 11/1304/04/2017 Inactive amitriptyline 50 mg tablet RxNorm: 674446 1 Tablet(s) P O QHS as needed for sleep 11/01/2016 11/27/2016 Inactive duloxetine 60 mg capsule,delayed release RxNorm: 498492 TAKE ONE CAPSULE BY MOUTH DAILY 10/20/2016 01/17/2017 Inactive allopurinol 300 mg tablet RxNorm: 784294 TAKE ONE TABLET BY LOPEZ TH DAILY 10/20/2016 01/16/2017 Inactive Lyrica 75 mg capsule RxNorm: 583580 TAKE ONE CAPSULE BY MOUTH EVERY NIGHT AT BEDTIME 10/20/2016 12/10/2016 Inactive Klor-Con 8 mEq tablet,extended release RxNorm: 257652 T FARRUKH ONE TABLET BY MOUTH TWICE A DAY 10/20/2016 01/17/2017 Inactive Celebrex 200 mg capsule RxNorm: 918182 TAKE ONE CAPSULE BY MOUT H TWICE A DAY 10/20/2016 07/18/2017 Inactive Bystolic 10 mg tablet RxNorm: 434630 TAKE ONE TABLET BY MOUTH EVERY NIGHT AT BEDTIME 10/20/2016 12/17/2016 Inactive amlodipine 5 mg-benazepril 20 mg capsule RxNorm: 803195 TAKE ONE CAPSULE BY MOUTH EVERY NIGHT AT BEDTIME -- TO REPLACE AMLODOPINE 10/20/20162016 Inactive Lipitor 10 mg tablet RxNorm: 935388 TAKE ONE TABLET BY MOUTH EVERY NIGHT AT BEDTIME 10/20/2016 01/17/2017 Inactive alprazolam 0.5 mg tablet RxNorm: 864456 3 Tablet(s) PO QHS as needed for sleep/anxiety 09/20/2016 10/31/2016 Inactive Tamiflu 75 mg capsule RxNorm: 155923 1 Capsule(s) PO QD 09/19/2016 Inactive Lyrica 75 mg capsule RxNorm: 745566 1 Capsule(s) PO QHS 09/19/2016 Inactive prednisone 20 mg tablet RxNorm: 569960 1 Tablet(s) PO QD 08/10/2016 1 10/17/2015 Inactive doxycycline hyclate 100 mg capsule RxNorm: 6431805 1 Capsule(s) PO BID 08/10/2016 08/19/2016 Inactive Medrol (Dustin) 4 mg tablets in a dose pack RxNorm: 030482 Tablet(s) PO As Directed 07/31/2016 08/22/2016 Inactive Singulair 10 mg tablet RxNorm: 915783 TAKE ONE TABLET BY MOUTH JOSÉ Y 07/27/2016 07/18/2017 Inactive hydrocodone 10 mg-acetaminophen 325 mg tablet RxNorm: 525179 1-2 Tablet(s) QID as needed for pain MUST LAST 30 DAYS 07/26/2016 08/24/2016 Inactive (Response to an electronic controlled substance refill request - RxReferenceNumber: [id number]) alprazolam 0.5 mg tablet RxNorm: 483937 3 Tablet(s) PO QHS as needed for anxiety or sleep 07/26/2016 09/20/2016 Inactive clindamycin 300 mg capsule RxNorm: 937988 1 Capsule(s) PO TID 07/2007/29/2016 Inactive Diflucan 100 mg tablet RxNorm: 805414 1 Tablet(s) PO QD 07/20/2016 Inactive Levaquin 500 mg tablet RxNorm: 088804 1 Tablet(s) PO QD 07/17/2016 Inactive Levaquin 500 mg tablet RxNorm: 538799 1 Tablet(s) PO QD 07/10/2016 Inactive Levaquin 500 mg tablet RxNorm: 329519 1 Tablet(s) PO QD 07/10/2016 Inactive mupirocin 2 % topical ointment RxNorm: 102515 TOP Apply topically to affected areas twice daily 07/06/2016 09/18/2016 Inactive Singulair 10 mg tablet RxNorm: 826968 TAKE ONE TABLET BY MOUTH JOSÉ Y 06/21/2016 01/21/2019 Inactive alprazolam 0.5 mg tablet RxNorm: 962695 TAKE THREE TABL ETS BY MOUTH AT BEDTIME NEEDED FOR SLEEP OR STRESS 05/22/2016 06/20/2016 Inactive triamterene 75 mg-hydrochlorothiazide 50 mg tablet RxNorm: 3 96512 1 Tablet(s) PO QD 04/26/2016 10/21/2016 Inactive Premarin 1.25 mg tablet RxNorm: 573407 1-2 Tablet(s) PO QD 04/26/20 16 03/20/2017 Inactive Klor-Con 8 mEq tablet,extended release RxNorm: 372826 1 Tablet( s) PO BID 04/26/2016 10/19/2016 Inactive Celebrex 200 mg capsule RxNorm: 051694 1 Capsule(s) PO BID TAKE ONE CAPSULE BY MOUTH EVERY DAY 04/26/2016 10/19/2016 Inactive Lipitor 10 mg tablet RxNorm: 747342 1 Tablet(s) PO QHS 04/26/201605/2017 Inactive allopurinol 300 mg tablet RxNorm: 982646 1 Tablet(s) PO QD TAKE ONE TABLET BY MOUTH EVERY DAY 04/26/2016 10/19/2016 Inactive amlodipine 5 mg-benazepril 20 mg capsule RxNorm: 611497 1 Capsule(s) PO QHS replaces amlodopine 04/26/2016 10/19/2016 Inactive duloxetine 60 mg capsule,delayed release RxNorm: 723867 1 Capsu le(s) PO QD 04/26/2016 10/19/2016 Inactive Bystolic 10 mg tablet RxNorm: 763311 1 Tablet(s) PO QHS 04/26/2016 Inactive Singulair 10 mg tablet RxNorm: 548909 1 Tablet(s) PO QD TAKE ONE TABLET BY MOUTH DAILY 04/26/2016 06/20/2016 Inactive clonidine HCl 0.1 mg tablet RxNorm: 310849 1 Tablet(s) PO QID 04/2610/22/2016 Inactive hydrocodone 10 mg-acetaminophen 325 mg tablet RxNorm: 918842 1-2 Tablet(s) QID as needed for pain TAKE ONE TO TWO TABLETS BY MOUTH FOUR TIMES A DAY . MUST LAST 30 DAYS 03/31/2016 04/29/2016 Inactive (Response to an electronic controlled substance refill request - RxReferenceNumber: [id number]) Klor-Con 8 mEq tablet,extended release RxNorm: 429094 T FARRUKH ONE TABLET BY MOUTH TWICE A DAY 03/24/2016 09/29/2019 Inactive prednisone 20 mg tablet RxNorm: 570725 1 Tablet(s) PO QD 03/09/2016 0 03/08/2016 Inactive prednisone 20 mg tablet RxNorm: 260475 1 Tablet(s) PO QD 03/09/2016 0 03/13/2016 Inactive alprazolam 0.5 mg tablet RxNorm: 994725 3 Tablet(s) PO QHS as needed for sleep/stress 03/02/2016 01/21/2019 Inactive mupirocin 2 % topical ointment RxNorm: 298117 TOP twice daily to affected areas of face and neck 02/21/2016 04/25/2016 Inactive clonidine HCl 0.1 mg tablet RxNorm: 881176 TAKE ONE TAB LET BY MOUTH FOUR TIMES A DAY 02/15/2016 09/29/2019 Inactive clonidine HCl 0.1 mg tablet RxNorm: 002470 1 Tablet(s) PO QID 02/1404/25/2016 Inactive Premarin 1.25 mg tablet RxNorm: 827739 1-2 Tablet(s) PO QD 02/15/20 16 03/15/2016 Inactive Klor-Con 8 mEq tablet,extended release RxNorm: 371874 T FARRUKH ONE TABLET BY MOUTH TWICE A DAY 02/15/2016 03/15/2016 Inactive potassium chloride ER 20 mEq tablet,extended release(part/cr yst) RxNorm: 905014 2 Tablet(s) PO BID 02/15/2016 03/15/2016 Inactive Macrobid 100 mg capsule RxNorm: 475504 1 Capsule(s) PO BID 01/24/2001/30/2016 Inactive prednisone 20 mg tablet RxNorm: 697152 Take 3tabs PO QD x 2 days, then 2 tabs PO QD x 2 days, then 1 tab PO QD x 2 days, then 1/2 tab PO QDy x 2 days 12/23/2015 04/25/2016 Inactive Klor-Con 8 mEq tablet,extended release RxNorm: 824260 T FARRUKH ONE TABLET BY MOUTH TWICE A DAY 12/20/2015 02/14/2016 Inactive alprazolam 1 mg tablet RxNorm: 308107 1 1/2 Tablet(s) PO QHS 201501/23/2016 Inactive nystatin 100,000 unit/gram topical cream RxNorm: 579864 APPLY TO AFFECTED AREA(S) TWO TIMES A DAY 11/30/2015 12/14/2015 Inactive Singulair 10 mg tablet RxNorm: 956547 TAKE ONE TABLET BY MOUTH JOSÉ Y 11/18/2015 04/25/2016 Inactive allopurinol 300 mg tablet RxNorm: 792410 1 Tablet(s) PO QD TAKE ONE TABLET BY MOUTH EVERY DAY 10/26/2015 04/22/2016 Inactive Singulair 10 mg tablet RxNorm: 208323 TAKE ONE TABLET BY MOUTH JOSÉ Y 10/26/2015 11/17/2015 Inactive duloxetine 60 mg capsule,delayed release RxNorm: 447290 1 Capsu le(s) PO QD 10/26/2015 04/22/2016 Inactive triamterene 75 mg-hydrochlorothiazide 50 mg tablet RxNorm: 3 98815 1 Tablet(s) PO QD 10/26/2015 11/14/2016 Inactive potassium chloride ER 20 mEq tablet,extended release(part/cr yst) RxNorm: 260230 2 Tablet(s) PO BID 10/26/2015 02/14/2016 Inactive Lipitor 10 mg tablet RxNorm: 567679 1 Tablet(s) PO QHS 10/26/2015 Inactive amlodipine 5 mg-benazepril 20 mg capsule RxNorm: 367435 1 Capsule(s) PO QHS replaces amlodopine 10/26/2015 04/22/2016 Inactive Bystolic 10 mg tablet RxNorm: 449898 1 Tablet(s) PO QHS 10/26/2015 Inactive amlodipine 5 mg-benazepril 20 mg capsule RxNorm: 033157 1 Capsule(s) PO QHS replaces amlodopine 10/06/2015 10/25/2015 Inactive amlodipine 5 mg tablet RxNorm: 208161 1 Tablet(s) PO QHS 09/30/2015 0 04/25/2016 Inactive metolazone 2.5 mg tablet RxNorm: 004031 TAKE ONE TABLET BY MOUTH DAILY NEEDED FOR EDEMA 09/30/2015 01/21/2019 Inactive duloxetine 60 mg capsule,delayed release RxNorm: 043145 1 Capsu le(s) PO QD 09/30/2015 10/25/2015 Inactive cephalexin 500 mg capsule RxNorm: 318036 1 Capsule(s) PO BID 201509/23/2015 Inactive mupirocin 2 % topical ointment RxNorm: 314546 TOP twice daily to affected areas of face and neck 09/14/2015 02/20/2016 Inactive baclofen 20 mg tablet RxNorm: 664161 1 Tablet(s) PO TID as needed for muscle spasm 09/01/2015 11/14/2016 Inactive clonidine HCl 0.1 mg tablet RxNorm: 633938 1 Tablet(s) PO QID 09/0102/14/2016 Inactive alprazolam 1 mg tablet RxNorm: 100325 1 1/2 Tablet(s) PO QHS 201409/09/2015 Inactive baclofen 20 mg tablet RxNorm: 067054 1 Tablet(s) PO TID as needed for muscle spasm 07/23/2015 09/01/2015 Inactive omeprazole 40 mg capsule,delayed release RxNorm: 134193 1 Capsu le(s) PO QD 07/23/2015 04/25/2016 Inactive alprazolam 1 mg tablet RxNorm: 370688 1 1/2 Tablet(s) PO QHS 201408/10/2015 Inactive Bystolic 10 mg tablet RxNorm: 406873 1 Tablet(s) PO BID 06/24/2015 Inactive allopurinol 300 mg tablet RxNorm: 874777 1 Tablet(s) PO QD TAKE ONE TABLET BY MOUTH EVERY DAY 06/23/2015 10/20/2015 Inactive alprazolam 1 mg tablet RxNorm: 925634 1 1/2 Tablet(s) PO QHS 201407/06/2015 Inactive clonidine HCl 0.1 mg tablet RxNorm: 149881 1 Tablet(s) PO QID 06/0209/01/2015 Inactive clonidine HCl 0.1 mg tablet RxNorm: 724682 1 Tablet(s) PO QID 06/0206/01/2015 Inactive Cymbalta 60 mg capsule,delayed release RxNorm: 931876 1 Capsule (s) PO QHS 06/02/2015 08/30/2015 Inactive Cymbalta 60 mg capsule,delayed release RxNorm: 756692 1 Capsule (s) PO QHS 06/02/2015 06/01/2015 Inactive clonidine HCl 0.1 mg tablet RxNorm: 296891 1 Tablet(s) PO TID 05/3106/01/2015 Inactive replaces 0.2mg dose metolazone 2.5 mg tablet RxNorm: 718329 TAKE ONE TABLET BY MOUTH DAILY NEEDED FOR EDEMA 05/21/2015 06/19/2015 Inactive Singulair 10 mg tablet RxNorm: 574397 TAKE ONE TABLET BY MOUTH JOSÉ Y 05/21/2015 10/17/2015 Inactive Cymbalta 30 mg capsule,delayed release RxNorm: 898303 1 Capsule (s) PO QHS 05/20/2015 11/14/2016 Inactive betamethasone valerate 0.1 % topical cream RxNorm: 434281 Appli cation TOP BID 05/10/2015 04/25/2016 Inactive Bactroban 2 % topical ointment RxNorm: 375970 Application TOP BID 0 05/10/2015 06/20/2015 Inactive baclofen 20 mg tablet RxNorm: 821235 1 Tablet(s) PO TID as needed 0 04/26/2015 07/23/2015 Inactive Lipitor 10 mg tablet RxNorm: 699657 1 Tablet(s) PO QHS 04/26/201508/2016 Inactive clonidine HCl 0.1 mg tablet RxNorm: 585368 1 Tablet(s) PO TID 04/2605/30/2015 Inactive replaces 0.2mg dose Klor-Con 8 mEq tablet,extended release RxNorm: 848839 1 Tablet( s) PO BID 04/26/2015 04/25/2016 Inactive metolazone 2.5 mg tablet RxNorm: 917451 1 Tablet(s) PO QD as ne eded for edema 04/26/2015 04/25/2015 Inactive triamterene 75 mg-hydrochlorothiazide 50 mg tablet RxNorm: 3 62349 1 Tablet(s) PO QD 04/26/2015 10/22/2015 Inactive Premarin 1.25 mg tablet RxNorm: 388508 1-2 Tablet(s) PO QD 04/26/20 15 10/22/2015 Inactive Bystolic 10 mg tablet RxNorm: 927791 1 Tablet(s) PO QAM TAKE ONE TABLET BY MOUTH EVERY MORNING 04/23/2015 06/23/2015 Inactive clonidine HCl 0.1 mg tablet RxNorm: 927343 1 Tablet(s) PO TID 03/2304/25/2015 Inactive replaces 0.2mg dose nystatin 100,000 unit/gram topical cream RxNorm: 579047 Applica tion TOP BID 03/23/2015 06/20/2015 Inactive baclofen 20 mg tablet RxNorm: 471099 1 Tablet(s) PO TID as needed 0 03/23/2015 04/25/2015 Inactive Premarin 1.25 mg tablet RxNorm: 326344 1-2 Tablet(s) PO QD 03/23/20 15 04/25/2015 Inactive Klor-Con 8 mEq tablet,extended release RxNorm: 182835 1 Tablet( s) PO BID 03/23/2015 04/25/2015 Inactive cefdinir 300 mg capsule RxNorm: 848218 2 Capsule(s) PO QD 03/16/2015 03/25/2015 Inactive baclofen 20 mg tablet RxNorm: 466739 1 Tablet(s) PO TID as needed 0 03/02/2015 03/22/2015 Inactive allopurinol 300 mg tablet RxNorm: 369622 1 Tablet(s) PO QD TAKE ONE TABLET BY MOUTH EVERY DAY 02/22/2015 05/22/2015 Inactive Klor-Con M20 mEq tablet,extended release RxNorm: 677732 2 Tablet(s) PO BID to use with lasix 02/22/2015 06/20/2015 Inactive clonidine HCl 0.1 mg tablet RxNorm: 470732 1 Tablet(s) PO TID 02/1903/22/2015 Inactive replaces 0.2mg dose Lipitor 10 mg tablet RxNorm: 475978 1 Tablet(s) PO QHS 01/20/201506/2015 Inactive Lipitor 10 mg tablet RxNorm: 553693 1 Tablet(s) PO QHS 01/20/2015 Inactive Singulair 10 mg tablet RxNorm: 244271 1 Tablet(s) PO QD TAKE ONE TABLET BY MOUTH EVERY DAY 11/20/2014 05/18/2015 Inactive Lipitor 10 mg tablet RxNorm: 826512 1 Tablet(s) PO QHS 11/20/201408/2015 Inactive allopurinol 300 mg tablet RxNorm: 268191 1 Tablet(s) PO QD TAKE ONE TABLET BY MOUTH EVERY DAY 11/20/2014 02/16/2015 Inactive Bystolic 10 mg tablet RxNorm: 594656 1 Tablet(s) PO QAM TAKE ONE TABLET BY MOUTH EVERY MORNING 11/20/2014 04/22/2015 Inactive Klor-Con 8 mEq tablet,extended release RxNorm: 684374 1 Tablet( s) PO BID 11/20/2014 02/17/2015 Inactive baclofen 20 mg tablet RxNorm: 393514 1 Tablet(s) PO TID as needed 0 11/20/2014 01/21/2019 Inactive baclofen 20 mg tablet RxNorm: 126177 1 Tablet(s) PO TID as needed 0 10/27/2014 11/19/2014 Inactive baclofen 20 mg tablet RxNorm: 144297 1 Tablet(s) PO TID as needed 0 10/26/2014 03/01/2015 Inactive allopurinol 300 mg tablet RxNorm: 450592 1 Tablet(s) PO QD TAKE ONE TABLET BY MOUTH EVERY DAY 10/26/2014 11/20/2014 Inactive Bystolic 10 mg tablet RxNorm: 340559 1 Tablet(s) PO QAM TAKE ONE TABLET BY MOUTH EVERY MORNING 10/26/2014 11/20/2014 Inactive clonidine HCl 0.1 mg tablet RxNorm: 148610 1 Tablet(s) PO TID 09/2805/27/2019 Inactive replaces 0.2mg dose clonidine HCl 0.1 mg tablet RxNorm: 751225 1 Tablet(s) PO TID 09/2802/18/2015 Inactive replaces 0.2mg dose baclofen 20 mg tablet RxNorm: 532308 1 Tablet(s) PO TID as needed 1 11/01/2013 08/30/2014 Inactive Lipitor 10 mg tablet RxNorm: 516318 1 Tablet(s) PO QHS 08/31/2014 Inactive baclofen 20 mg tablet RxNorm: 859813 1 Tablet(s) PO TID as needed 1 11/01/2013 10/26/2014 Inactive triamterene 75 mg-hydrochlorothiazide 50 mg tablet RxNorm: 3 07138 1 Tablet(s) PO QD 08/31/2014 02/26/2015 Inactive Klor-Con 8 mEq tablet,extended release RxNorm: 809437 1 Tablet( s) PO BID 08/31/2014 11/20/2014 Inactive baclofen 20 mg tablet RxNorm: 554125 1 Tablet(s) PO TID as needed 1 09/30/2013 10/25/2014 Inactive baclofen 20 mg tablet RxNorm: 701998 1 Tablet(s) PO TID as needed 1 09/30/2013 08/31/2014 Inactive omeprazole 40 mg capsule,delayed release RxNorm: 668078 1 Capsu le(s) PO QD 07/21/2014 07/23/2015 Inactive Flonase 50 mcg/actuation nasal spray,suspension RxNorm: 8963 23 1 Cameron NASAL BID 07/15/2014 04/09/2017 Inactive hydrocodone 10 mg-acetaminophen 325 mg tablet RxNorm: 097193 1-2 Tablet(s) QID as needed for pain TAKE ONE TO TWO TABLETS BY MOUTH FOUR TIMES A DAY . MUST LAST 30 DAYS 06/30/2014 07/27/2014 Inactive (Response to an electronic controlled substance refill request - RxReferenceNumber: [id number]) baclofen 20 mg tablet RxNorm: 102997 1 Tablet(s) PO TID as needed 1 07/31/2014 Inactive Singulair 10 mg tablet RxNorm: 642995 1 Tablet(s) PO QD TAKE ONE TABLET BY MOUTH EVERY DAY 05/25/2014 11/20/2014 Inactive Bystolic 10 mg tablet RxNorm: 758541 TAKE ONE TABLET BY MOUTH E VERY MORNING 05/25/2014 09/21/2014 Inactive allopurinol 300 mg tablet RxNorm: 684654 1 Tablet(s) PO QD TAKE ONE TABLET BY MOUTH EVERY DAY 05/25/2014 10/21/2014 Inactive baclofen 20 mg tablet RxNorm: 704950 1 Tablet(s) PO TID as needed 0 05/25/2014 06/29/2014 Inactive allopurinol 300 mg tablet RxNorm: 010389 TAKE ONE TABLET BY LOPEZ TH EVERY DAY 05/25/2014 09/21/2014 Inactive Singulair 10 mg tablet RxNorm: 846285 1 Tablet(s) PO QD TAKE ONE TABLET BY MOUTH EVERY DAY 05/25/2014 05/24/2014 Inactive Bystolic 10 mg tablet RxNorm: 339048 1 Tablet(s) PO QAM TAKE ONE TABLET BY MOUTH EVERY MORNING 05/25/2014 10/21/2014 Inactive metolazone 2.5 mg tablet RxNorm: 549604 1 Tablet(s) PO QD as ne eded for edema 05/18/2014 04/25/2015 Inactive Lasix 40 mg tablet RxNorm: 024403 1 Tablet(s) PO QAM s hould take potassium supplementation with this medication 05/14/2014 05/17/2014 Inactive hydrocodone 10 mg-acetaminophen 325 mg tablet RxNorm: 602788 1-2 Tablet(s) QID as needed for pain TAKE ONE TO TWO TABLETS BY MOUTH FOUR TIMES A DAY . MUST LAST 30 DAYS 05/07/2014 06/05/2014 Inactive (Response to an electronic controlled substance refill request - RxReferenceNumber: [id number]) alprazolam 0.5 mg tablet RxNorm: 157369 TAKE ONE TABLET BY MOUTH TWICE A DAY , MUST LAST 30 DAYS 05/07/2014 05/22/2016 Inactive (Response to a n electronic controlled substance refill request - RxReferenceNumber: [id number]) diclofenac sodium 75 mg tablet,delayed release RxNorm: 34788 6 1 Tablet(s) PO BID for pain 04/24/2014 07/20/2014 Inactive Celebrex 200 mg capsule RxNorm: 934033 TAKE ONE CAPSULE BY MOUT H EVERY DAY 04/24/2014 07/20/2014 Inactive alprazolam 0.5 mg tablet RxNorm: 008029 TAKE ONE TABLET BY MOUTH TWICE A DAY , MUST LAST 30 DAYS 03/24/2014 04/22/2014 Inactive (Response to a n electronic controlled substance refill request - RxReferenceNumber: [id number]) diclofenac sodium 75 mg tablet,delayed release RxNorm: 62914 6 1 Tablet(s) PO BID for pain 03/24/2014 04/24/2014 Inactive clonidine HCl 0.1 mg tablet RxNorm: 815102 1 Tablet(s) PO TID 03/2409/28/2014 Inactive replaces 0.2mg dose Klor-Con 8 mEq tablet,extended release RxNorm: 192943 1 Tablet( s) PO BID 02/26/2014 08/31/2014 Inactive diclofenac sodium 75 mg tablet,delayed release RxNorm: 82608 6 1 Tablet(s) PO BID for pain 02/25/2014 03/24/2014 Inactive hydrocodone 10 mg-acetaminophen 325 mg tablet RxNorm: 811323 1-2 Tablet(s) QID as needed for pain TAKE ONE TO TWO TABLETS BY MOUTH FOUR TIMES A DAY . MUST LAST 30 DAYS 02/25/2014 03/26/2014 Inactive (Response to an electronic controlled substance refill request - RxReferenceNumber: [id number]) alprazolam 0.5 mg tablet RxNorm: 803595 Tablet(s) PO BI D as needed for anxiety TAKE ONE TABLET BY MOUTH TWICE A DAY , MUST LAST 30 DAYS 02/25/2014 Inactive (Response to an electronic controlled [place] bstance refill request - RxReferenceNumber: [id number]) [AttnRPh: Saving apply/adjudicate RxGRP:SG20 RxBIN:[id number] RxN: ID#:[id number]] alprazolam 0.5 mg tablet RxNorm: 700931 Tablet(s) TAKE ONE TABLET BY MOUTH TWICE A DAY , MUST LAST 30 DAYS 01/27/2014 02/24/2014 Inactive (Respo nse to an electronic controlled substance refill request - RxReferenceNumber: [id number]) [AttnRPh: Saving apply/adjudicate RxGRP:SG20 RxBIN:[id number] RxPCN: ID#:[id number]] hydrocodone 10 mg-acetaminophen 325 mg tablet RxNorm: 186954 1-2 Tablet(s) QID as needed for pain TAKE ONE TO TWO TABLETS BY MOUTH FOUR TIMES A DAY . MUST LAST 30 DAYS 01/27/2014 02/24/2014 Inactive (Response to an electronic controlled substance refill request - RxReferenceNumber: [id number]) alprazolam 0.5 mg tablet RxNorm: 985360 TAKE ONE TABLET BY MOUTH TWICE A DAY , MUST LAST 30 DAYS 01/27/2014 01/26/2014 Inactive (Response to a n electronic controlled substance refill request - RxReferenceNumber: [id number]) Premarin 1.25 mg tablet RxNorm: 813886 1-2 Tablet(s) PO QD 01/28/20 14 07/25/2014 Inactive alprazolam 0.5 mg tablet RxNorm: 231262 TAKE ONE TABLET BY MOUTH TWICE A DAY , MUST LAST 30 DAYS 01/27/2014 01/27/2014 Inactive (Response to a n electronic controlled substance refill request - RxReferenceNumber: [id number]) hydrocodone 10 mg-acetaminophen 325 mg tablet RxNorm: 700241 TAKE ONE TO TWO TABLETS BY MOUTH FOUR TIMES A DAY . MUST LAST 30 DAYS 01/27/20142013 Inactive (Response to an electronic controlled [place] bstance refill request - RxReferenceNumber: [id number]) Celebrex 200 mg capsule RxNorm: 514116 1 Capsule(s) PO QD TAKE ONE CAPSULE BY MOUTH EVERY DAY 12/29/2013 04/27/2014 Inactive hydrocodone 10 mg-acetaminophen 325 mg tablet RxNorm: 860168 1-2 Tablet(s) PO QID as needed for severe pain 12/29/2013 01/27/2014 Inactive allopurinol 300 mg tablet RxNorm: 409559 1 Tablet(s) PO QD TAKE ONE TABLET BY MOUTH EVERY DAY 12/29/2013 05/24/2014 Inactive alprazolam 0.5 mg tablet RxNorm: 481049 TAKE ONE TABLET BY MOUTH TWICE A DAY , MUST LAST 30 DAYS 12/29/2013 01/27/2014 Inactive (Response to a n electronic controlled substance refill request - RxReferenceNumber: [id number]) Celebrex 200 mg capsule RxNorm: 401343 1 Capsule(s) PO QD TAKE ONE CAPSULE BY MOUTH EVERY DAY 12/29/2013 12/29/2013 Inactive Bystolic 10 mg tablet RxNorm: 142945 1 Tablet(s) PO QAM TAKE ONE TABLET BY MOUTH EVERY MORNING 12/29/2013 05/24/2014 Inactive Bystolic 10 mg tablet RxNorm: 500025 1 Tablet(s) PO QAM TAKE ONE TABLET BY MOUTH EVERY MORNING 12/29/2013 12/29/2013 Inactive Singulair 10 mg tablet RxNorm: 423528 1 Tablet(s) PO QD TAKE ONE TABLET BY MOUTH EVERY DAY 12/29/2013 05/25/2014 Inactive hydrocodone 10 mg-acetaminophen 325 mg tablet RxNorm: 381709 TAKE ONE TO TWO TABLETS BY MOUTH FOUR TIMES A DAY . MUST LAST 30 DAYS 12/29/20132013 Inactive (Response to an electronic controlled [place] bstance refill request - RxReferenceNumber: [id number]) Trazadone 75mg Tablet RxNorm: 1 Tablet(s) PO QHS as needed 03/23/2014 Inactive Trazadone 75mg Tablet RxNorm: 1 Tablet(s) PO QHS 12/24/20132014 Inactive Soma 350 mg tablet RxNorm: 049060 Tablet(s) PO TAKE ON E TABLET BY MOUTH THREE TIMES A DAY NEEDED FOR MUSCLE SPASMS. THIS MUST LAST 30 DAYS BETWEEN REFILLS. 12/10/2013 12/22/2013 Inactive (Appended: Cont rolled substance eRx refill - RxReferenceNumber: [id number]) diclofenac sodium 75 mg tablet,delayed release RxNorm: 34610 6 1 Tablet(s) PO BID for pain 12/10/2013 02/24/2014 Inactive allopurinol 300 mg tablet RxNorm: 647040 1 Tablet(s) PO QD 11/20/19 14 12/29/2013 Inactive alprazolam 0.5 mg tablet RxNorm: 186427 2 Tablet(s) PO BID 11/13/19 14 12/29/2013 Inactive prn clonidine 0.1 mg tablet RxNorm: 536228 1 Tablet(s) PO TID 11/12/2013 02/09/2014 Inactive replaces 0.2mg dose Klor-Con M20 mEq tablet,extended release RxNorm: 388391 2 Tablet(s) PO BID to use with lasix 11/12/2013 05/10/2014 Inactive Singulair 10 mg tablet RxNorm: 159816 1 Tablet(s) PO QD 11/12/2013 Inactive hydrocodone 10 mg-acetaminophen 325 mg tablet RxNorm: 425824 1-2 Tablet(s) PO QID as needed for severe pain 11/12/2013 12/28/2013 Inactive Bystolic 10 mg tablet RxNorm: 313219 1 Tablet(s) PO QAM 11/12/2013 Inactive Soma 350 mg tablet RxNorm: 945109 Tablet(s) PO TAKE ON E TABLET BY MOUTH THREE TIMES A DAY NEEDED FOR MUSCLE SPASMS. THIS MUST LAST 30 DAYS BETWEEN REFILLS. 10/13/2013 12/10/2013 Inactive (Appended: Cont rolled substance eRx refill - RxReferenceNumber: [id number]) hydrocodone 10 mg-acetaminophen 325 mg tablet RxNorm: 427289 1-2 Tablet(s) PO QID as needed for severe pain 10/03/2013 11/11/2013 Inactive diclofenac sodium 75 mg tablet,delayed release RxNorm: 17176 8 1 Tablet(s) PO BID for pain 09/11/2013 12/10/2013 Inactive alprazolam 0.5 mg tablet RxNorm: 861680 1 Tablet(s) PO BID May refill on 04/26/13 09/01/2013 10/30/2013 Inactive prn hydrocodone 10 mg-acetaminophen 325 mg tablet RxNorm: 474128 1-2 Tablet(s) PO QID as needed for severe pain 09/01/2013 10/02/2013 Inactive triamterene 75 mg-hydrochlorothiazide 50 mg tablet RxNorm: 3 52877 1 Tablet(s) PO QD 08/04/2013 08/31/2014 Inactive cyclobenzaprine 10 mg tablet RxNorm: 976841 1 Tablet(s) PO TID prn spasm 08/04/2013 08/13/2013 Inactive clonidine 0.1 mg tablet RxNorm: 049181 1 Tablet(s) PO TID 08/04/2013 11/11/2013 Inactive replaces 0.2mg dose cyclobenzaprine 10 mg tablet RxNorm: 325613 1 Tablet(s) PO TID prn spasm 07/23/2013 08/01/2013 Inactive hydrocodone 10 mg-acetaminophen 325 mg tablet RxNorm: 603728 2 1-2 Tablet(s) PO QID as needed for severe pain 06/09/2013 08/07/2013 Inactive Singulair 10 mg tablet RxNorm: 167413 1 Tablet(s) PO QD 05/29/2013 Inactive Klor-Con 8 mEq tablet,extended release RxNorm: 195948 1 Tablet( s) PO BID 05/29/2013 02/26/2014 Inactive allopurinol 300 mg tablet RxNorm: 825911 1 Tablet(s) PO QD 05/29/20 13 11/19/2013 Inactive Bystolic 10 mg tablet RxNorm: 115931 1 Tablet(s) PO QAM take one daily in the morning. 05/29/2013 11/11/2013 Inactive scopolamine 1.5 mg 72 hr Transderm Patch RxNorm: 278636 Application TD Q72H for motion sickness 05/26/2013 07/22/2013 Inactive Soma 350 mg tablet RxNorm: 518584 1 Tablet(s) PO TID as needed for spasm 05/19/2013 10/13/2013 Inactive diclofenac sodium 75 mg tablet,delayed release RxNorm: 71465 8 1 Tablet(s) PO BID for pain 05/14/2013 07/22/2013 Inactive allopurinol 300 mg tablet RxNorm: 103998 1 Tablet(s) PO QD 04/25/20 13 05/28/2013 Inactive alprazolam 0.5 mg tablet RxNorm: 334003 1 Tablet(s) PO BID May refill on 04/26/13 04/25/2013 06/23/2013 Inactive prn Celebrex 200 mg capsule RxNorm: 911337 1 Capsule(s) PO QD 04/16/2013 12/29/2013 Inactive alprazolam 0.5 mg tablet RxNorm: 391448 1 Tablet(s) PO BID May refill on 04/26/13 04/16/2013 04/24/2013 Inactive prn Soma 350 mg tablet RxNorm: 617342 1 Tablet(s) PO TID as needed for spasm 04/16/2013 No Stop Date Active Lasix 40 mg tablet RxNorm: 601149 1 Tablet(s) PO QAM s hould take potassium supplementation with this medication 04/16/2013 06/14/2013 Inactive clonidine 0.1 mg tablet RxNorm: 487685 1 Tablet(s) PO TID 04/16/2013 08/03/2013 Inactive replaces 0.2mg dose prednisone 20 mg tablet RxNorm: 094895 1 Tablet(s) PO BID 04/16/2013 04/20/2013 Inactive diclofenac sodium 75 mg tablet,delayed release RxNorm: 16464 8 1 Tablet(s) PO BID for pain 04/14/2013 05/13/2013 Inactive hydrocodone 10 mg-acetaminophen 325 mg tablet RxNorm: 492307 2 1-2 Tablet(s) PO QID as needed for severe pain 04/14/2013 No Stop Date Active Lasix 40 mg tablet RxNorm: 936811 1 Tablet(s) PO QAM s hould take potassium supplementation with this medication 03/31/2013 04/15/2013 Inactive Celebrex 200 mg capsule RxNorm: 429632 1 Capsule(s) PO QD 03/31/2013 04/15/2013 Inactive alprazolam 0.5 mg tablet RxNorm: 952927 1 Tablet(s) PO BID 03/28/20 13 04/15/2013 Inactive prn hydrocodone 10 mg-acetaminophen 325 mg tablet RxNorm: 072940 2 1-2 Tablet(s) PO QID as needed for severe pain 03/10/2013 No Stop Date Active metformin ER 500 mg 24 hr tablet,extended release RxNorm: 86 1018 1 Tablet(s) PO QD 03/06/2013 07/22/2013 Inactive clindamycin 300 mg capsule RxNorm: 979023 2 Capsule(s) PO TID 03/0503/14/2013 Inactive Zaroxolyn 2.5 mg tablet RxNorm: 565210 1 Tablet(s) PO QAM 03/05/2013 05/19/2015 Inactive amlodipine 10 mg tablet RxNorm: 803743 1 Tablet(s) PO QD 03/03/2013 0 05/25/2013 Inactive Norvasc 10 mg tablet RxNorm: 429544 1 Tablet(s) PO QD 02/28/201307/11 Inactive Celebrex 200 mg capsule RxNorm: 222220 1 Capsule(s) PO QD 02/28/2013 03/30/2013 Inactive diclofenac sodium 75 mg tablet,delayed release RxNorm: 40311 8 1 Tablet(s) PO BID for pain 02/14/2013 03/15/2013 Inactive Soma 350 mg tablet RxNorm: 383018 1 Tablet(s) PO TID as needed for spasm 02/14/2013 No Stop Date Active hydrocodone 10 mg-acetaminophen 325 mg tablet RxNorm: 963528 2 1-2 Tablet(s) PO QID as needed for severe pain 02/14/2013 No Stop Date Active Norvasc 10 mg tablet RxNorm: 074229 1 Tablet(s) PO QD 02/10/201302/09 Inactive Celebrex 200 mg capsule RxNorm: 098675 1 Capsule(s) PO QD 01/27/2013 01/26/2013 Inactive Premarin 1.25 mg tablet RxNorm: 425731 1-2 Tablet(s) PO QD 01/28/20 13 06/25/2013 Inactive alprazolam 0.5 mg tablet RxNorm: 562998 1 Tablet(s) PO BID 01/28/20 13 02/25/2013 Inactive prn amlodipine 5 mg tablet RxNorm: 314101 1 Tablet(s) PO QD 01/27/2013 Inactive Celebrex 200 mg capsule RxNorm: 873179 1 Capsule(s) PO QD 01/27/2013 02/27/2013 Inactive gabapentin 600 mg tablet RxNorm: 533434 1 Tablet(s) PO QHS 01/16/20 13 07/22/2013 Inactive Soma 350 mg tablet RxNorm: 392666 1 Tablet(s) PO TID as needed for spasm 01/15/2013 No Stop Date Active hydrocodone 10 mg-acetaminophen 325 mg tablet RxNorm: 522348 2 1-2 Tablet(s) PO QID as needed for severe pain 01/15/2013 No Stop Date Active Soma 350 mg tablet RxNorm: 580561 1 Tablet(s) PO TID as needed for spasm 01/13/2013 No Stop Date Active alprazolam 0.5 mg tablet RxNorm: 161146 1 Tablet(s) PO BID 12/31/19 13 01/26/2013 Inactive prn diclofenac sodium 75 mg tablet,delayed release RxNorm: 62543 8 1 Tablet(s) PO BID for pain 12/09/2012 01/07/2013 Inactive gabapentin 600 mg tablet RxNorm: 240560 1 Tablet(s) PO QHS 12/10/19 13 01/07/2013 Inactive hydrocodone 10 mg-acetaminophen 325 mg tablet RxNorm: 391343 2 1-2 Tablet(s) PO QID as needed for severe pain 12/02/2012 No Stop Date Active Levaquin 750 mg tablet RxNorm: 403758 1 Tablet(s) PO QD 11/21/2012 Inactive Singulair 10 mg tablet RxNorm: 124280 1 Tablet(s) PO QD 11/11/2012 Inactive clonidine 0.2 mg tablet RxNorm: 052418 1 Tablet(s) PO TID 11/11/2012 04/15/2013 Inactive alprazolam 0.5 mg tablet RxNorm: 196934 1 Tablet(s) PO BID 11/12/19 13 12/10/2012 Inactive prn Klor-Con 8 mEq tablet,extended release RxNorm: 874237 1 Tablet( s) PO BID 11/11/2012 03/04/2013 Inactive hydrocodone 10 mg-acetaminophen 325 mg tablet RxNorm: 829154 2 1-2 Tablet(s) PO QID as needed for severe pain 11/06/2012 No Stop Date Active alprazolam 0.5 mg tablet RxNorm: 088836 1 Tablet(s) PO BID 10/15/19 13 11/10/2012 Inactive prn hydrocodone-acetaminophen 10 mg-325 mg tablet RxNorm: 973766 2 1-2 Tablet(s) PO QID as needed for severe pain 10/10/2012 10/09/2012 Inactive allopurinol 300 mg tablet RxNorm: 982562 1 Tablet(s) PO QD 09/20/19 13 12/18/2012 Inactive alprazolam 0.5 mg tablet RxNorm: 241040 1 Tablet(s) PO BID 09/17/19 13 10/14/2012 Inactive prn hydrocodone-acetaminophen 10 mg-325 mg tablet RxNorm: 296337 2 1-2 Tablet(s) PO QID as needed for severe pain 08/22/2012 08/21/2012 Inactive Norvasc 10 mg tablet RxNorm: 579132 1 Tablet(s) PO QD 08/12/201201/10 Inactive Premarin 1.25 mg tablet RxNorm: 723810 1-2 Tablet(s) PO QD 07/30/20 12 12/26/2012 Inactive alprazolam 0.5 mg tablet RxNorm: 637055 1 Tablet(s) PO BID 07/29/2008/27/2012 Inactive prn Klor-Con 8 mEq tablet,extended release RxNorm: 124391 1 Tablet( s) PO BID 07/29/2012 11/10/2012 Inactive hydrocodone-acetaminophen 10 mg-325 mg tablet RxNorm: 220927 2 1-2 Tablet(s) PO QID as needed for severe pain 07/29/2012 No Stop Date Active Premarin 1.25 mg tablet RxNorm: 758259 1-2 Tablet(s) PO QD 07/29/2007/29/2012 Inactive clonidine 0.2 mg tablet RxNorm: 813446 1 Tablet(s) PO TID 07/29/2012 10/28/2012 Inactive ketorolac 10 mg tablet RxNorm: 593397 1 Tablet(s) PO QID prn he adache 07/18/2012 No Stop Date Active hydrocodone-acetaminophen 10 mg-325 mg tablet RxNorm: 870708 2 1-2 Tablet(s) PO QID as needed for severe pain 07/03/2012 No Stop Date Active amlodipine 5 mg tablet RxNorm: 005037 1 Tablet(s) PO QD 07/02/2012 Inactive allopurinol 300 mg tablet RxNorm: 397379 1 Tablet(s) PO QD 07/02/20 12 09/19/2012 Inactive Celebrex 200 mg capsule RxNorm: 983303 1 Capsule(s) PO QD for j oint pain 06/26/2012 10/23/2012 Inactive diclofenac sodium 75 mg tablet,delayed release RxNorm: 55136 8 1 Tablet(s) PO BID for pain 06/19/2012 09/16/2012 Inactive hydrocodone-acetaminophen 10 mg-325 mg tablet RxNorm: 273537 2 1-2 Tablet(s) PO QID as needed for severe pain 06/10/2012 No Stop Date Active alprazolam 0.5 mg tablet RxNorm: 135172 1 Tablet(s) PO BID 06/03/20 12 07/02/2012 Inactive prn ketorolac 10 mg tablet RxNorm: 688944 1 Tablet(s) PO Q8H 05/27/2012 0 01/21/2019 Inactive as needed for headache hydrocodone-acetaminophen 10 mg-325 mg tablet RxNorm: 136348 2 1-2 Tablet(s) PO QID as needed for severe pain 05/15/2012 No Stop Date Active allopurinol 300 mg tablet RxNorm: 538923 1 Tablet(s) PO QD 05/14/20 12 06/12/2012 Inactive allopurinol 300 mg tablet RxNorm: 120658 1 Tablet(s) PO QD 05/14/20 12 05/13/2012 Inactive amlodipine 5 mg tablet RxNorm: 176836 1 Tablet(s) PO QD 05/01/2012 Inactive amlodipine 5 mg Tab RxNorm: 242257 1 Tablet(s) PO QD 05/01/201204/30 Inactive Celebrex 200 mg capsule RxNorm: 535623 1 Capsule(s) PO QD for j oint pain 05/01/2012 06/25/2012 Inactive Singulair 10 mg tablet RxNorm: 835048 1 Tablet(s) PO QD 05/01/2012 Inactive alprazolam 0.5 mg tablet RxNorm: 309689 1 Tablet(s) PO BID 05/01/20 12 05/30/2012 Inactive prn Celebrex 200 mg Cap RxNorm: 676283 1 Capsule(s) PO QD for joint radu n 05/01/2012 04/30/2012 Inactive hydrocodone-acetaminophen 10 mg-325 mg tablet RxNorm: 880125 2 1-2 Tablet(s) PO QID as needed for severe pain 04/19/2012 No Stop Date Active Lasix 40 mg tablet RxNorm: 875163 1 Tablet(s) PO QAM s hould take potassium supplementation with this medication 04/05/2012 06/03/2012 Inactive alprazolam 0.5 mg Tab RxNorm: 713976 1 Tablet(s) PO BID 04/05/2012 Inactive prn hydrocodone-acetaminophen 10 mg-325 mg Tab RxNorm: 9888886 1-2 Tablet(s) PO QID as needed for severe pain 03/25/2012 03/24/2012 Inactive clonidine 0.2 mg Tab RxNorm: 859057 1 Tablet(s) PO TID 03/08/2012 Inactive alprazolam 0.5 mg Tab RxNorm: 602744 1 Tablet(s) PO BID 03/08/2012 Inactive prn Soma 350 mg tablet RxNorm: 117803 1 Tablet(s) PO TID for spasm 02/0903/18/2012 Inactive clonidine 0.2 mg tablet RxNorm: 216406 1 Tablet(s) PO TID 03/08/2012 07/28/2012 Inactive Celebrex 200 mg Cap RxNorm: 622925 1 Capsule(s) PO QD for joint radu n 03/01/2012 04/29/2012 Inactive amlodipine 5 mg Tab RxNorm: 807319 1 Tablet(s) PO QD 02/26/201202/24 Inactive amlodipine 5 mg Tab RxNorm: 700809 1 Tablet(s) PO QD 02/26/201204/25 Inactive Bactroban 2 % Ointment RxNorm: 011638 Application TOP QID to sores 02/23/2012 No Stop Date Active amlodipine 2.5 mg tablet RxNorm: 003365 1 Tablet(s) PO QHS 02/20/20 12 02/25/2012 Inactive doxycycline hyclate 100 mg Cap RxNorm: 8544102 1 Capsule(s) PO BID 02/20/2012 02/29/2012 Inactive hydrocodone-acetaminophen 10 mg-325 mg Tab RxNorm: 1865034 1-2 T ablet(s) PO QID 02/08/2012 No Stop Date Active alprazolam 0.5 mg Tab RxNorm: 067017 1 Tablet(s) PO BID 02/08/2012 Inactive prn Singulair 10 mg Tab RxNorm: 009062 1 Tablet(s) PO QD 02/08/201204/30 Inactive Soma 350 mg Tab RxNorm: 838112 1 Tablet(s) PO TID for spasm 012 03/07/2012 Inactive Soma 350 mg Tab RxNorm: 340403 1 Tablet(s) PO TID for spasm 012 02/05/2012 Inactive diclofenac sodium 75 mg tablet,delayed release RxNorm: 69913 8 1 Tablet(s) PO BID for pain 02/01/2012 03/18/2012 Inactive Celebrex 200 mg Cap RxNorm: 388096 1 Capsule(s) PO QD for joint radu n 01/30/2012 02/28/2012 Inactive Lasix 40 mg Tab RxNorm: 146964 1 Tablet(s) PO QAM 01/24/2012 03/18/20 12 Inactive potassium chloride ER 20 mEq tablet,extended release(part/cr yst) RxNorm: 217090 2 Tablet(s) PO BID 01/24/2012 02/22/2012 Inactive alprazolam 0.5 mg Tab RxNorm: 592286 1 Tablet(s) PO BID 01/11/2012 Inactive prn hydrocodone-acetaminophen 10 mg-325 mg Tab RxNorm: 2611827 1-2 T ablet(s) PO QID 01/11/2012 No Stop Date Active Ambien 10 mg Tab RxNorm: 341042 1 Tablet(s) PO QHS 01/11/2012 012 Inactive Klor-Con 8 mEq Tab RxNorm: 878743 1 Tablet(s) PO BID 01/11/201201/22 Inactive diclofenac sodium 75 mg Tab, Delayed Release RxNorm: 472856 1 Tablet(s) PO BID for pain 01/10/2012 01/31/2012 Inactive Ambien 10 mg Tab RxNorm: 343173 1 Tablet(s) PO QHS 12/11/2011 012 Inactive alprazolam 0.5 mg Tab RxNorm: 368693 1 Tablet(s) PO BID 12/11/2011 Inactive prn hydrocodone 10 mg-acetaminophen 325 mg tablet RxNorm: 535227 1-2 Tablet(s) PO TID 11/28/2011 No Stop Date Active as needed for pa in - Previous quantity #240, will start dosing for #180 in April 2011 per Doctor Appiah. Ambien 10 mg Tab RxNorm: 438977 1 Tablet(s) PO QHS 11/09/2011 012 Inactive alprazolam 0.5 mg Tab RxNorm: 975825 1 Tablet(s) PO BID 11/09/2011 Inactive prn hydrocodone-acetaminophen 10 mg-325 mg Tab RxNorm: 0553138 1-2 T ablet(s) PO TID 11/06/2011 No Stop Date Active as needed for pain - Previous quantity #240, will start dosing for #180 in April 2011 per Doctor Td. Singulair 10 mg Tab RxNorm: 423147 1 Tablet(s) PO QD 10/13/201110/12 Inactive Singulair 10 mg Tab RxNorm: 284332 1 Tablet(s) PO QD 10/13/201102/06 Inactive hydrocodone-acetaminophen 10 mg-325 mg Tab RxNorm: 1931772 1-2 T ablet(s) PO TID 10/10/2011 10/09/2011 Inactive as needed for pain - Previous quantity #240, will start dosing for #180 in April 2011 per Doctor Td. hydrocodone-acetaminophen 10 mg-325 mg Tab RxNorm: 3382672 1-2 T ablet(s) PO TID 10/09/2011 No Stop Date Active as needed for pain - Previous quantity #240, will start dosing for #180 in April 2011 per Doctor Td. Klor-Con 8 mEq Tab RxNorm: 717162 1 Tablet(s) PO BID 10/02/201101/09 Inactive triamterene 75 mg-hydrochlorothiazide 50 mg tablet RxNorm: 3 02276 1 Tablet(s) PO QD 09/14/2011 03/06/2013 Inactive Ambien 10 mg Tab RxNorm: 321131 1 Tablet(s) PO QHS 09/14/2011 012 Inactive hydrocodone-acetaminophen 10 mg-325 mg Tab RxNorm: 1159661 1-2 T ablet(s) PO TID 09/14/2011 No Stop Date Active as needed for pain - Previous quantity #240, will start dosing for #180 in April 2011 per Doctor Td. alprazolam 0.5 mg Tab RxNorm: 391698 1 Tablet(s) PO BID 09/14/2011 Inactive prn Zithromax 500 mg Tab RxNorm: 137803 1 Tablet(s) PO QD 09/13/201109/10 Inactive prednisone 20 mg Tab RxNorm: 949339 1 Tablet(s) PO BID 08/31/2011 Inactive Ambien 10 mg Tab RxNorm: 942162 1 Tablet(s) PO QHS 08/17/2011 011 Inactive hydrocodone-acetaminophen 10 mg-325 mg Tab RxNorm: 3837139 1-2 T ablet(s) PO TID 08/17/2011 No Stop Date Active as needed for pain - Previous quantity #240, will start dosing for #180 in April 2011 per Doctor Td. clonidine 0.2 mg Tab RxNorm: 432070 1 Tablet(s) PO TID 08/17/201112/2011 Inactive Ambien 10 mg Tab RxNorm: 726109 1 Tablet(s) PO QHS 08/17/2011 019 Inactive alprazolam 0.5 mg Tab RxNorm: 294254 1 Tablet(s) PO BID 08/17/2011 Inactive prn hydrocodone-acetaminophen 10 mg-325 mg Tab RxNorm: 0554536 1-2 T ablet(s) PO TID 08/17/2011 08/16/2011 Inactive as needed for pain - Previous quantity #240, will start dosing for #180 in April 2011 per Doctor Td. Singulair 10 mg Tab RxNorm: 787005 1 Tablet(s) PO QD 08/17/201108/16 Inactive Klor-Con 8 mEq Tab RxNorm: 151735 1 Tablet(s) PO QD 08/17/20112011 Inactive alprazolam 0.5 mg Tab RxNorm: 376272 1 Tablet(s) PO BID 07/20/2011 Inactive prn Ambien 10 mg Tab RxNorm: 994158 1 Tablet(s) PO QHS 07/20/2011 012 Inactive Singulair 10 mg Tab RxNorm: 815095 1 Tablet(s) PO QD 07/20/201107/19 Inactive Premarin 1.25 mg tablet RxNorm: 360360 2 Tablet(s) PO QD 07/20/2011 0 01/21/2019 Inactive Premarin 1.25 mg tablet RxNorm: 657461 1-2 Tablet(s) PO QD 07/20/20 11 12/16/2011 Inactive Premarin 1.25 mg Tab RxNorm: 648856 1-2 Tablet(s) PO QD 07/06/2011 Inactive alprazolam 0.5 mg Tab RxNorm: 388147 1 Tablet(s) PO BID 06/22/2011 Inactive prn alprazolam 0.5 mg Tab RxNorm: 747877 1 Tablet(s) PO BID 06/22/2011 Inactive prn Premarin 1.25 mg Tab RxNorm: 306720 1 Tablet(s) PO QD m ay do 90 day fill if desired 06/22/2011 07/05/2011 Inactive hydrocodone-acetaminophen 10 mg-325 mg Tab RxNorm: 1057467 1-2 T ablet(s) PO TID 06/22/2011 No Stop Date Active as needed for pain - Previous quantity #240, will start dosing for #180 in April 2011 per Doctor Td. clonidine 0.2 mg Tab RxNorm: 734257 1 Tablet(s) PO TID 05/25/201103/2011 Inactive triamterene-hydrochlorothiazide 75 mg-50 mg Tab RxNorm: 3108 18 1 Tablet(s) PO QD 05/25/2011 09/13/2011 Inactive alprazolam 0.5 mg Tab RxNorm: 294764 1 Tablet(s) PO BID 05/25/2011 Inactive prn hydrocodone-acetaminophen 10 mg-325 mg Tab RxNorm: 8222617 1-2 T ablet(s) PO TID 05/25/2011 No Stop Date Active as needed for pain - Previous quantity #240, will start dosing for #180 in April 2011 per Doctor Td. Robaxin-750 750 mg Tab RxNorm: 997373 2 Tablet(s) PO QHS 05/22/2011 1 Inactive prn spasm hydrocodone-acetaminophen 10 mg-325 mg Tab RxNorm: 7529083 1-2 T ablet(s) PO TID 04/26/2011 No Stop Date Active as needed for pain - Previous quantity #240, will start dosing for #180 in April 2011 per Doctor Td. alprazolam 0.5 mg Tab RxNorm: 020354 1 Tablet(s) PO BID 04/25/2011 Inactive prn Klor-Con 8 mEq Tab RxNorm: 645587 1 Tablet(s) PO QD 03/30/20112010 Inactive Klor-Con 8 mEq Tab RxNorm: 191920 1 Tablet(s) PO QD 03/29/20112010 Inactive hydrocodone-acetaminophen 10 mg-325 mg Tab RxNorm: 0529868 1-2 T ablet(s) PO TID 03/20/2011 04/25/2011 Inactive as needed for pain - Previous quantity #240, will start dosing for #180 in April 2011 per Doctor Td. alprazolam 0.5 mg Tab RxNorm: 998800 1 Tablet(s) PO BID prn 011 03/30/2011 Inactive Ambien 10 mg Tab RxNorm: 877980 1 Tablet(s) PO QHS 03/01/2011 011 Inactive cyclobenzaprine 10 mg Tab RxNorm: 883228 1 Tablet(s) PO TID 011 03/18/2012 Inactive cyclobenzaprine 10 mg Tab RxNorm: 664571 1 Tablet(s) PO TID 011 01/08/2011 Inactive cyclobenzaprine 10 mg Tab RxNorm: 039854 1 Tablet(s) PO TID 011 12/20/2010 Inactive terbinafine 250 mg Tab RxNorm: 114534 1 Tablet(s) PO QD 12/12/2010 Inactive triamterene-hydrochlorothiazide 75 mg-50 mg Tab RxNorm: 3108 18 1 Tablet(s) PO QD 12/07/2010 06/04/2011 Inactive Klor-Con 8 8 mEq Tab RxNorm: 986990 1 Tablet(s) PO QD 12/07/201001/08 Inactive Premarin 1.25 mg Tab RxNorm: 067910 2 Tablet(s) PO QD 12/07/201001/08 Inactive clonidine 0.2 mg Tab RxNorm: 247593 1 Tablet(s) PO TID 12/07/2010 Inactive hydrocodone-acetaminophen 7.5 mg-650 mg Tab RxNorm: 211925 1 Ta blet(s) PO Q4H 12/05/2010 01/21/2019 Inactive hydrocodone-acetaminophen 7.5 mg-650 mg Tab RxNorm: 086263 1 Ta blet(s) PO Q4H 10/26/2010 11/14/2010 Inactive hydrocodone-acetaminophen 7.5 mg-650 mg Tab RxNorm: 643100 1 Ta blet(s) PO Q4H 10/13/2010 10/25/2010 Inactive hydrocodone-acetaminophen 7.5 mg-650 mg Tab RxNorm: 300359 1 Ta blet(s) PO Q4H 09/15/2010 09/12/2010 Inactive alprazolam 0.5 mg Tab RxNorm: 529708 1 Tablet(s) PO BID prn 011 09/12/2010 Inactive terbinafine 250 mg Tab RxNorm: 714122 1 Tablet(s) PO QD 09/05/2010 Inactive hydrocodone-acetaminophen 7.5 mg-650 mg Tab RxNorm: 487465 1 Ta blet(s) PO Q4H 08/29/2010 09/17/2010 Inactive alprazolam 0.5 mg Tab RxNorm: 910080 1 Tablet(s) PO BID prn 010 09/27/2010 Inactive alprazolam 0.5 mg Tab RxNorm: 683793 1 Tablet(s) PO BID prn 010 09/06/2010 Inactive Klor-Con 8 mEq Tab RxNorm: 462649 1 Tablet(s) PO QD 08/08/20102010 Inactive hydrocodone-acetaminophen 7.5 mg-650 mg Tab RxNorm: 770819 1 Ta blet(s) PO Q4H 08/08/2010 08/27/2010 Inactive Ambien 10 mg Tab RxNorm: 442107 1 Tablet(s) PO QHS 08/08/2010 Inactive clonidine 0.2 mg Tab RxNorm: 028329 1 Tablet(s) PO TID 08/08/2010 Inactive Premarin 1.25 mg Tab RxNorm: 215700 2 Tablet(s) PO QD 08/08/201009/12 Inactive Ambien 10 mg Tab RxNorm: 949286 1 Tablet(s) PO QHS 07/18/2010 Inactive alprazolam 0.5 mg Tab RxNorm: 987575 1 Tablet(s) PO BID prn 010 08/07/2010 Inactive hydrocodone-acetaminophen 7.5 mg-650 mg Tab RxNorm: 020690 1 Ta blet(s) PO Q4H 07/12/2010 07/31/2010 Inactive clonidine 0.2 mg Tab RxNorm: 808435 1 Tablet(s) PO TID 06/20/2010 Inactive terbinafine 250 mg Tab RxNorm: 860345 1 Tablet(s) PO QD 05/24/2010 Inactive Clonidine 0.2 mg Tab RxNorm: 288052 1 Tablet(s) PO TID 05/24/201006/2010 Inactive Ambien 10 mg Tab RxNorm: 819194 1 Tablet(s) PO QHS 05/24/2010 Inactive alprazolam 0.5 mg Tab RxNorm: 238492 1 Tablet(s) PO BID 05/24/2010 Inactive Klor-Con 8 mEq Tab RxNorm: 862724 1 Tablet(s) PO QD 05/24/20102009 Inactive alprazolam 0.5 mg Tab RxNorm: 610867 2 Tablet(s) PO QD prn 05/24/20 10 07/17/2010 Inactive triamterene-hydrochlorothiazide 75 mg-50 mg Tab RxNorm: 3108 18 1 Tablet(s) PO QD 05/24/2010 11/19/2010 Inactive Ambien 10 mg Tab RxNorm: 991102 1 Tablet(s) PO QHS 05/23/2010 010 Inactive Alprazolam 0.5 mg Tab RxNorm: 163593 2 Tablet(s) PO QD prn 05/23/20 10 05/23/2010 Inactive Premarin 1.25 mg Tab RxNorm: 024119 2 Tablet(s) PO QD 05/19/201007/12 Inactive Hydrocodone-Acetaminophen 7.5 mg-650 mg Tab RxNorm: 699522 1 Ta blet(s) PO Q4H 05/19/2010 03/20/2011 Inactive Prednisone 20 mg Tab RxNorm: 392320 1 Tablet(s) PO BID 05/17/2010 Inactive Prednisone 20 mg Tab RxNorm: 571003 1 Tablet(s) PO BID 05/06/201001/2010 Inactive Premarin 1.25 mg Tab RxNorm: 277395 Tablet(s) PO 2 M-W-F, and 1 Qu-Ds-Bxy-Sun 05/05/2010 08/02/2010 Inactive Premarin 1.25 mg Tab RxNorm: 416484 Tablet(s) PO 2 M-W-F, and 1 Zy-Ma-Ysh-Sun 05/04/2010 05/04/2010 Inactive Premarin 1.25 mg Tab RxNorm: 990910 Tablet(s) PO 2 M-W-F, and 1 Zy-Lo-Jry-Sun 05/04/2010 05/03/2010 Inactive Prednisone 20 mg Tab RxNorm: 054233 1 Tablet(s) PO BID 04/27/2010 Inactive Alprazolam 0.5 mg Tab RxNorm: 098652 2 Tablet(s) PO QD prn 04/26/20 10 05/22/2010 Inactive Clindamycin 300 mg Cap RxNorm: 543078 2 Capsule(s) PO TID 04/05/2010 04/18/2010 Inactive Terbinafine 250 mg Tab RxNorm: 730145 1 Tablet(s) PO QD 04/04/2010 Inactive Hydrocodone-Acetaminophen 7.5 mg-650 mg Tab RxNorm: 099273 1 Ta blet(s) PO Q4H 03/30/2010 04/18/2010 Inactive Avelox 400 mg Tab RxNorm: 883329 1 Tablet(s) PO QD 03/09/2010 010 Inactive Hydrocodone-Acetaminophen 7.5 mg-650 mg Tab RxNorm: 176068 1 Ta blet(s) PO Q4H 03/08/2010 03/27/2010 Inactive Alprazolam 0.5 mg Tab RxNorm: 192918 2 Tablet(s) PO QD prn 03/08/20 10 04/25/2010 Inactive Klor-Con 8 mEq Tab RxNorm: 660876 1 Tablet(s) PO QD when takes lasi x 03/07/2010 09/29/2019 Inactive Premarin 1.25 mg Tab RxNorm: 818418 1 Tablet(s) PO QD 03/03/201003/11 Inactive Alprazolam 0.5 mg Tab RxNorm: 505424 1 Tablet(s) PO BID PRN 010 No Stop Date Active triamterene-hydrochlorothiazide 75 mg-50 mg Tab RxNorm: 3108 18 1 Tablet(s) PO QD 02/09/2010 02/03/2011 Inactive Hydrocodone-Acetaminophen 10 mg-750 mg Tab RxNorm: 625366 1 Tablet(s) PO Q4H PRN 02/09/2010 03/20/2011 Inactive Clonidine 0.2 mg Tab RxNorm: 229726 1 Tablet(s) PO TID 01/13/201009/2009 Inactive Alprazolam 0.5 mg Tab RxNorm: 577404 1 Tablet(s) PO BID PRN 010 01/12/2010 Inactive Hydrocodone-Acetaminophen 10 mg-750 mg Tab RxNorm: 429098 1 Tablet(s) PO Q4H PRN 01/13/2010 01/12/2010 Inactive ANGELIQ 1 mg-0.5 mg Tab RxNorm: 1832632 1 Tablet(s) PO QD 12/27/2009 01/23/2010 Inactive Lasix 40 mg Tab RxNorm: 680363 1 Tablet(s) PO QAM 12/14/2009 06/11/20 10 Inactive Vitamin B12 1000mcg Tablet RxNorm: 1 Tablet(s) PO QD No Start Date Active cyclobenzaprine 10 mg tablet RxNorm: 569358 1 Tablet(s) PO TID as needed DO NOT USE WITH BACLOFEN No Start Date Active Vitamin D 5,000 unit Tab RxNorm: 1 Tablet(s) PO QD No Start Date Active vitamin E (dl, acetate) 400 unit Cap RxNorm: 265877 1 Capsule(s ) PO QD No Start Date Active Benadryl 25 mg Cap RxNorm: 6183947 Capsule(s) PO PRN No Start Date Inactive amitriptyline 100 mg tablet RxNorm: 522853 1 Tablet(s) PO QHS No St art Date 11/27/2016 Inactive Zithromax Z-Dustin 250 mg tablet RxNorm: 209795 Tablet(s) PO as di rected No Start Date 07/22/2013 Inactive Klor-Con 8 mEq tablet,extended release RxNorm: 768527 1 Tablet( s) PO BID No Start Date 07/28/2012 Inactive scopolamine 1.5 mg 72 hr Transderm Patch RxNorm: 388824 Application TD Q72H for motion sickness No Start Date 05/25/2013 Inactive Klonopin 1 mg tablet RxNorm: 746742 1-2 Tablet(s) PO QHS as nee ded for sleep No Start Date 06/20/2015 Inactive Klor-Con M20 mEq tablet,extended release RxNorm: 252332 2 Tablet(s) PO BID to use with lasix No Start Date 11/11/2013 Inactive Bystolic 5 mg tablet RxNorm: 119725 1 Tablet(s) PO QD No Start Date 1 Inactive Bystolic 10 mg tablet RxNorm: 965404 1 Tablet(s) PO BID No Start Da te 07/06/2015 Inactive Premarin 1.25 mg Tab RxNorm: 172402 Tablet(s) PO 2 -W-, and 1 Iq-Gp-Kex-Sun No Start Date 05/03/2010 Inactive baclofen 20 mg tablet RxNorm: 881513 1 Tablet(s) PO TID as needed for muscle spasm No Start Date 07/22/2015 Inactive hydrocodone-acetaminophen 7.5 mg-650 mg Tab RxNorm: 995686 1 Tablet(s) PO Q4H as needed for pain No Start Date 03/20/2011 Inactive albuterol sulfate 1.25 mg/3 mL Neb Solution RxNorm: 738006 1 Unit Dose INH Q4H 2boxes No Start Date 09/06/2015 Inactive Butrans 20 mcg/hour Transderm Patch RxNorm: 127233 1 TD WEEKLY apply to skin weekly after removing previous. No Start Date 07/22/2013 Inactive Medrol (Dustin) 4 mg tablets in a dose pack RxNorm: 758531 Tablet(s) PO As Directed No Start Date 07/30/2016 Inactive hydrocodone-acetaminophen 10 mg-325 mg Tab RxNorm: 4739950 1-2 Tablet(s) PO TID as needed for pain No Start Date 03/19/2011 Inactive Klonopin 1 mg tablet RxNorm: 377567 1 Tablet(s) PO QHS No Start Date 02/28/2016 Inactive honey topical RxNorm: topical No Start Date 06/16/2018 Inactive Clonidine 0.2 mg Tab RxNorm: 597132 1 Tablet(s) PO TID No Start Date 01/12/2010 Inactive ketorolac 10 mg tablet RxNorm: 015217 1 Tablet(s) PO Q8H No Start D ate 03/18/2012 Inactive as needed for headache Singulair 10 mg Tab RxNorm: 506043 1 Tablet(s) PO QD No Start Date Inactive Premarin 1.25 mg Tab RxNorm: 796136 1 Tablet(s) PO QD No Start Date 1 Inactive Flonase 50 mcg/Actuation Nasal Cameron RxNorm: 1549697 1 Cameron CECELIA AL BID No Start Date 03/18/2012 Inactive Terbinafine 250 mg Tab RxNorm: 542237 1 Tablet(s) PO QD No Start Da te 04/03/2010 Inactive Fexofenadine 180 mg Tab RxNorm: 8081714 1 Tablet(s) PO QD No Start Date 09/06/2015 Inactive baclofen 20 mg tablet RxNorm: 891293 1 Tablet(s) PO TID as needed N o Start Date 05/25/2014 Inactive Diovan 160 mg Tab RxNorm: 133696 1 Tablet(s) PO QD No Start Date 09/12 Inactive mupirocin 2 % topical ointment RxNorm: 525250 1 Application TOP QID No Start Date 04/25/2016 Inactive ZOFRAN ODT 4 mg Tab, Rapid Dissolve RxNorm: 515298 1 Tablet(s) PO Q4H No Start Date 03/18/2012 Inactive as needed for nausea and vomiting Alprazolam 0.5 mg Tab RxNorm: 730474 1 Tablet(s) PO BID PRN No Star t Date 01/12/2010 Inactive cyclobenzaprine 10 mg tablet RxNorm: 293677 1 Tablet(s) PO TID as needed for muscle spasm No Start Date 10/08/2017 Inactive Albuterol 0.083% Aerosol Solution RxNorm: 1 Appl ication INH Q4H Use one ampule every 4 hrs with nebulizer as needed for shortness of breath. No Start Date 10/09/2010 Inactive lorazepam 1 mg tablet RxNorm: 354989 1 1/2 Tablet(s) PO QHS No Star t Date 02/02/2016 Inactive Melatonin 3 mg Tab RxNorm: 548016 Tablet(s) PO PRN No Start Date 07/11 Inactive Medrol (Dustin) 4 mg Tabs in a Dose Pack RxNorm: 175736 Tablet(s) PO N o Start Date 11/28/2010 Inactive lorazepam 1 mg tablet RxNorm: 461407 1 Tablet(s) PO QHS as need ed for sleep No Start Date 01/30/2016 Inactive hydrocodone-acetaminophen 10 mg-325 mg Tab RxNorm: 3050517 1-2 Tablet(s) PO QID as needed for severe pain No Start Date 03/24/2012 Inactive celecoxib 200 mg capsule RxNorm: 269687 1 Capsule(s) PO BID No Star t Date 06/26/2019 Inactive amlodipine 5 mg-benazepril 20 mg capsule RxNorm: 753517 1 Capsu le(s) PO QD No Start Date 04/10/2017 Inactive Bystolic 20 mg tablet RxNorm: 266019 1/2 Tablet(s) PO QAM No Start Date 01/23/2016 Inactive Bystolic 20 mg tablet RxNorm: 550610 1 Tablet(s) PO QAM No Start Da te 04/25/2016 Inactive Ambien 10 mg Tab RxNorm: 826155 1 Tablet(s) PO QHS No Start Date 05/11 Inactive Klor-Con 8 mEq Tab RxNorm: 902100 1 Tablet(s) PO QD when takes lasix No Start Date 03/06/2010 Inactive aspirin 81 mg tablet RxNorm: 956657 1 Tablet(s) PO QD No Start Date 0 01/29/2018 Inactive hydrocodone-acetaminophen 10 mg-325 mg Tab RxNorm: 8214728 1-2 T ablet(s) PO QID No Start Date 01/10/2012 Inactive Bystolic 10 mg tablet RxNorm: 789101 1 Tablet(s) PO QAM take one daily in the morning. No Start Date 05/28/2013 Inactive nystatin 100,000 unit/mL Oral Susp RxNorm: 814759 5 Milliliter( s) PO QID No Start Date 03/18/2012 Inactive swish and spit scopolamine 1.5 mg 72 hr Transderm Patch RxNorm: 155490 1 Unit Dose TD Q72H for motion sickness No Start Date 12/23/2013 Inactive Hydrocodone-Acetaminophen 10 mg-750 mg Tab RxNorm: 804325 1 Tablet(s) PO Q4H PRN No Start Date 01/12/2010 Inactive Soma 350 mg tablet RxNorm: 503859 1 Tablet(s) PO TID as needed for spasm No Start Date 01/12/2013 Inactive baclofen 10 mg tablet RxNorm: 865280 1 Tablet(s) PO TID as needed for muscle spasm No Start Date 09/18/2019 Inactive Soma 350 mg Tab RxNorm: 480532 1 Tablet(s) PO TID for spasm No Star t Date 01/31/2012 Inactive Co Q-10 400 mg capsule RxNorm: 535531 1 Capsule(s) PO QD No Start D ate 01/21/2019 Inactive nystatin 100,000 unit/gram topical cream RxNorm: 823913 Applica tion TOP BID No Start Date 03/22/2015 Inactive Exforge 5 mg-160 mg Tab RxNorm: 542981 1 Tablet(s) PO QD No Start D ate 10/09/2010 Inactive Hydrocodone-Acetaminophen 7.5 mg-650 mg Tab RxNorm: 445518 1 Ta blet(s) PO Q4H No Start Date 03/07/2010 Inactive Robaxin-750 750 mg Tab RxNorm: 436291 1-2 Tablet(s) PO TID prn spasm No Start Date 05/21/2011 Inactive amlodipine 5 mg tablet RxNorm: 526502 1 Tablet(s) PO QHS No Start D ate 09/29/2015 Inactive oxycodone-acetaminophen 10 mg-325 mg tablet RxNorm: 7572333 1-2 Tablet(s) PO Q6H No Start Date 06/16/2018 Inactive Triamterene-Hydrochlorothiazide 75 mg-50 mg Tab RxNorm: 3108 18 1 Tablet(s) PO QD No Start Date 02/08/2010 Inactive Alprazolam 0.5 mg Tab RxNorm: 391059 2 Tablet(s) PO QD prn No Start Date 03/07/2010 Inactive Bystolic 20 mg tablet RxNorm: 850708 1 Tablet(s) PO QAM No Start Da te 08/17/2015 Inactive ketorolac 10 mg tablet RxNorm: 968509 1 Tablet(s) PO QID prn he adache No Start Date 07/17/2012 Inactive acyclovir 800 mg Tab RxNorm: 745823 1 Tablet(s) PO BID No Start Date 03/18/2012 Inactive duloxetine 60 mg capsule,delayed release RxNorm: 111123 1 Capsu le(s) PO QD No Start Date 09/29/2015 Inactive Norvasc 5 mg tablet RxNorm: 590861 1 Tablet(s) PO QHS No Start Date 1 10/18/2014 Inactive promethazine 25 mg tablet RxNorm: 938118 1 Tablet(s) PO Q8H use sparingly No Start Date 07/22/2013 Inactive alprazolam 0.5 mg tablet RxNorm: 284317 3 Tablet(s) PO QHS No Start Date 06/06/2015 Inactive Lunesta 3 mg tablet RxNorm: 569857 1 Tablet(s) PO QHS No Start Date 0 09/20/2017 Inactive hydrocodone-acetaminophen 10 mg-325 mg Tab RxNorm: 8757053 1-2 Tablet(s) PO TID as needed for pain No Start Date 12/10/2011 Inactive Coricidin HBP Cough & Cold 4 mg-30 mg Tab RxNorm: 3634931 Tablet (s) PO PRN No Start Date 10/09/2010 Inactive Bactroban 2 % Ointment RxNorm: 230213 Application TOP QID to so res No Start Date 02/22/2012 Inactive Flonase 50 mcg/actuation Nasal Cameron RxNorm: 426306 2 Cameron CECELIA AL QHS No Start Date 03/03/2014 Inactive Medication Administered No Medication Administered data Immunizations Vaccine Codes Date Status Tetanus, Diptheria, Pertussis CVX: 115 02/27/2014 Results Observation Observation Code Item Item Code Result Date S ervice Location [facility] 27463 AST 15 U/L 2019 Unknown [facility] 55176 ALT 13 U/L 2019 Unknown [facility] 09810 BUN 12 mg/dL 2019 Unknown [facility] 03369 ALBUMIN 3.9 g/dL 2019 Unknown [facility] 84795 CHLORIDE 97 mmol/L 2019 Unknown [facility] 67809 Bili Total 0.4 mg/dL 09/29 Unknown [facility] 38622 ALK PHOS 130 U/L 2019 Unknown [facility] 36626 SODIUM 136 mmol/L 09/29 Unknown [facility] 59487 CREATININE 0.92 mg/dL 09/11 Unknown [facility] 74350 CALCIUM 9.1 mg/dL 2019 Unknown [facility] 13420 POTASSIUM 4.4 mmol/L 09/29 Unknown [facility] 80471 Total Protein 6.2 g/dL Unknown [facility] 50001 Glucose 391 mg/dL 2019 Unknown [facility] 71901 Bicarbonate 30 mmol/L 09/11 Unknown COMPREHENSIVE METABOLIC 99512 AGAP 9 mmol/L 2019 Unknown MEAN GLUC 4936577 Calc Mean Gluc 332 mg/dL 09/29/2019 Unkn own COMPLETE BLOOD COUNT [id number] WBC 7.0 10e9/L 09/29/19 Unknown COMPLETE BLOOD COUNT [id number] RBC 4.69 10e12/L 2019 Unknown COMPLETE BLOOD COUNT 6145008 HEMOGLOBIN 14.6 g/dL 09/29/19 Unknown COMPLETE BLOOD COUNT 8352542 HEMATOCRIT 45.2 % 09/29/19 Unknown COMPLETE BLOOD COUNT [id number] MCV 96.4 fL 0 Unknown COMPLETE BLOOD COUNT [id number] MCH 31.1 pg 0 Unknown COMPLETE BLOOD COUNT 5062005 MCHC 32.3 g/dL 0 Unknown COMPLETE BLOOD COUNT [id number] PLATELET COUNT 209 10e9/L Unknown COMPLETE BLOOD COUNT 8054147 Mean Plt Volume 9.8 fL Unknown COMPLETE BLOOD COUNT 5843693 Neut Auto 48.1 % 0 Unknown COMPLETE BLOOD COUNT [id number] Lymph Auto 36.5 % 09/29/19 Unknown COMPLETE BLOOD COUNT [id number] Cross Auto 8.6 % 0 Unknown COMPLETE BLOOD COUNT 6294731 RDW 13.4 % 0 Unknown COMPLETE BLOOD COUNT 0704728 Eos Auto 6.5 % 0 Unknown COMPLETE BLOOD COUNT 8680962 Baso Auto 0.3 % 0 Unknown COMPLETE BLOOD COUNT [id number] Neutrophil Abs 3.37 10e9/L Unknown COMPLETE BLOOD COUNT [id number] Lymphocyte Abs 2.56 10e9/L Unknown COMPLETE BLOOD COUNT [id number] Monocyte Abs 0.60 10e9/L 09/11 Unknown COMPLETE BLOOD COUNT [id number] Eosinophil Abs 0.46 10e9/L Unknown COMPLETE BLOOD COUNT 4349666 RDW-SD 45.9 fL 0 Unknown COMPLETE BLOOD COUNT [id number] Basophil Abs 0.02 10e9/L 09/11 Unknown LIPID GROUP 20722 Cholesterol 248 mg/dL 09/29/2019 Unkno wn LIPID GROUP 96133 Triglyceride 898 mg/dL 09/29/2019 Unkn own L[facility] GROUP 84271 HDL CHOLESTEROL 41 mg/dL 09/29/2019 U nknown L[facility] GROUP 63319 Chol/HDL Ratio 6.05 ratio 09/29/2019 U nknown LIP[facility] GROUP 50276 NON-HDL Chol 207 mg/dL 09/29/2019 Unkn own LIP[facility] GROUP 22799 LDL Cholesterol N/A Trig >400 020 Unknown GLYCOSYLATED HEMOGLOBIN TEST 53609 Hgb A1c 00262-5 13.2 % 0 09/29/2019 Unknown FREE T4 64743 T4 Free 0.75 ng/dL 09/29/2019 Unknown GFR CALC 4212631 GFR Non Afr Amr >60 mL/min 09/29/2019 Un known GFR CALC 1938398 GFR Afr Amr >60 mL/min 09/29/2019 Unknow n THYROID STIMULATING HORMONE 98467 TSH 4.245 uIU/mL 09/29/2019 Unknown COMPLETE BLOOD COUNT 6563442 WBC 10.7 10e9/L 018 Unknown COMPLETE BLOOD COUNT [id number] RBC 4.59 10e12/L 2017 Unknown COMPLETE BLOOD COUNT [id number] HEMOGLOBIN 14.8 g/dL 12/11/19 18 Unknown COMPLETE BLOOD COUNT [id number] HEMATOCRIT 44.9 % 12/11/19 18 Unknown COMPLETE BLOOD COUNT 1856166 MCV 97.8 fL 8 Unknown COMPLETE BLOOD COUNT 0097831 MCH 32.2 pg 8 Unknown COMPLETE BLOOD COUNT 7834651 MCHC 33.0 g/dL 8 Unknown COMPLETE BLOOD COUNT 8842437 PLATELET COUNT 261 10e9/L 10/2017 Unknown COMPLETE BLOOD COUNT 2917403 Mean Plt Volume 9.5 fL 10/2017 Unknown COMPLETE BLOOD COUNT [id number] Neut Auto 59.9 % 8 Unknown COMPLETE BLOOD COUNT [id number] Lymph Auto 27.4 % 12/11/19 18 Unknown COMPLETE BLOOD COUNT 3427296 Cross Auto 8.2 % 8 Unknown COMPLETE BLOOD COUNT 7874234 RDW 13.3 % 8 Unknown COMPLETE BLOOD COUNT 1231637 Eos Auto 4.1 % 8 Unknown COMPLETE BLOOD COUNT 2015347 Baso Auto 0.4 % 8 Unknown COMPLETE BLOOD COUNT [id number] Neutrophil Abs 6.41 10e9/L Unknown COMPLETE BLOOD COUNT [id number] Lymphocyte Abs 2.93 10e9/L Unknown COMPLETE BLOOD COUNT [id number] Monocyte Abs 0.88 10e9/L 10/2017 Unknown COMPLETE BLOOD COUNT [id number] Eosinophil Abs 0.44 10e9/L Unknown COMPLETE BLOOD COUNT 6142528 RDW-SD 46.2 fL 8 Unknown COMPLETE BLOOD COUNT 8128015 Basophil Abs 0.04 10e9/L 10/2017 Unknown THYROID STIMULATING HORMONE 01173 TSH 4.015 uIU/mL 12/10/2017 Unknown COMPREHENSIVE METABOLIC 78981 AST 25 U/L 2017 Unknown COMPREHENSIVE METABOLIC 75031 ALT 17 U/L 2017 Unknown COMPREHENSIVE METABOLIC 48569 BUN 19 mg/dL 2017 Unknown COMPREHENSIVE METABOLIC 20409 ALBUMIN 4.0 g/dL 2017 Unknown COMPREHENSIVE METABOLIC 43573 CHLORIDE 91 mmol/L 2017 Unknown COMPREHENSIVE METABOLIC 36566 Bili Total 0.5 mg/dL 12/10 Unknown COMPREHENSIVE METABOLIC 04021 ALK PHOS 75 U/L 2017 Unknown COMPREHENSIVE METABOLIC 88237 SODIUM 136 mmol/L 12/10 Unknown COMPREHENSIVE METABOLIC 98223 CREATININE 1.05 mg/dL 10/2017 Unknown COMPREHENSIVE METABOLIC 55395 CALCIUM 8.9 mg/dL 2017 Unknown COMPREHENSIVE METABOLIC 71204 POTASSIUM 3.4 mmol/L 12/10 Unknown COMPREHENSIVE METABOLIC 02117 Total Protein 6.5 g/dL Unknown COMPREHENSIVE METABOLIC 31696 Glucose 138 mg/dL 2017 Unknown COMPREHENSIVE METABOLIC 94099 Bicarbonate 35 mmol/L 10/2017 Unknown COMPREHENSIVE METABOLIC 33130 AGAP 10 mmol/L 2017 Unknown MEAN GLUC 9047167 Calc Mean Gluc 171 mg/dL 12/10/2017 Unkn own LIP[facility] GROUP 10149 Cholesterol 204 mg/dL 12/10/2017 Unkno wn LIPID GROUP 22734 Triglyceride 411 mg/dL 12/10/2017 Unkn own LIP[facility] GROUP 66469 HDL CHOLESTEROL 50 mg/dL 12/10/2017 U nknown LIP[facility] GROUP 29039 Chol/HDL Ratio 4.08 ratio 12/10/2017 U nknown L[facility] GROUP 92439 NON-HDL Chol 154 mg/dL 12/10/2017 Unkn own [facility] 59272 LDL Cholesterol N/A Trig >400 018 Unknown GLYCOSYLATED HEMOGLOBIN TEST 61637 Hgb A1c 78344-8 7.6 % 0 12/10/2017 Unknown FREE T4 34179 T4 Free 1.40 ng/dL 12/10/2017 Unknown GFR CALC 2635968 GFR Non Afr Amr 55 mL/min 12/10/2017 Unk nown GFR CALC 2653309 GFR Afr Amr >60 mL/min 12/10/2017 Unknow n GFR CALC 1857036 GFR Non Afr Amr 48 mL/min 06/28/2017 Unk nown GFR CALC 4126493 GFR Afr Amr 59 mL/min 06/28/2017 Unknown COMPREHENSIVE METABOLIC 05609 AST 32 U/L 2016 Unknown COMPREHENSIVE METABOLIC 99365 ALT 22 U/L 2016 Unknown COMPREHENSIVE METABOLIC 79256 BUN 23 mg/dL 2016 Unknown COMPREHENSIVE METABOLIC 92328 ALBUMIN 4.7 g/dL 2016 Unknown COMPREHENSIVE METABOLIC 92920 CHLORIDE 89 mmol/L 2016 Unknown COMPREHENSIVE METABOLIC 75442 Bili Total 0.5 mg/dL 06/28 Unknown COMPREHENSIVE METABOLIC 78805 ALK PHOS 90 U/L 2016 Unknown COMPREHENSIVE METABOLIC 16502 SODIUM 135 mmol/L 06/28 Unknown COMPREHENSIVE METABOLIC 74311 CREATININE 1.18 mg/dL 06/10 Unknown COMPREHENSIVE METABOLIC 83459 CALCIUM 9.7 mg/dL 2016 Unknown COMPREHENSIVE METABOLIC 13794 POTASSIUM 3.5 mmol/L 06/28 Unknown COMPREHENSIVE METABOLIC 53252 Total Protein 7.7 g/dL Unknown [facility] MET[facility]OL[facility] 95638 Glucose 129 mg/dL 2016 Unknown COMPREHENSIVE METABOLIC 46277 Bicarbonate 34 mmol/L 06/10 Unknown COMPREHENSIVE METABOLIC 71799 AGAP 12 mmol/L 2016 Unknown [facility] 09697 HDL TEST 64 MG/DL 08/27/2014 Unknown [facility] 55841 TRIG 222 MG/DL 08/27/2014 Unknown [facility] 09395 TEST LDL 209 MG/DL 08/27/2014 Unknown [facility] 07751 CHOL 317 MG/DL 08/27/2014 Unknown [facility] 49980 RCHOL/HDL 4.95 RATIO 08/27/2014 Unknow n LIP[facility] GROUP 20518 NON-HDL CH 253 MG/DL 08/27/2014 Unknow n GFR CALC 5061714 GFR AA >60 ML/MIN 08/27/2014 Unknown GFR CALC 6248007 GFR NON-AA >60 ML/MIN 08/27/2014 Unknown COMPLETE BLOOD COUNT 2350746 WBC 7.0 10e9/L 08/27/20 14 Unknown COMPLETE BLOOD COUNT [id number] RBC 4.98 10e12/L 2013 Unknown COMPLETE BLOOD COUNT 9392894 HGB 15.6 g/dL 4 Unknown COMPLETE BLOOD COUNT 2632893 HCT DET 46.5 % 4 Unknown COMPLETE BLOOD COUNT 2219477 MCV 93.4 fL 4 Unknown COMPLETE BLOOD COUNT 6200883 MCH 31.3 pg 4 Unknown COMPLETE BLOOD COUNT 9237963 MCHC 33.5 g/dL 4 Unknown COMPLETE BLOOD COUNT 0264286 PLT 309 10e9/L 08/27/20 14 Unknown COMPLETE BLOOD COUNT 8090795 MPV 9.6 fL 4 Unknown COMPLETE BLOOD COUNT 3433733 CADEN % 57.2 % 4 Unknown COMPLETE BLOOD COUNT 8658895 LY % 33.2 % 4 Unknown COMPLETE BLOOD COUNT 6234790 MON % 7.3 % 4 Unknown COMPLETE BLOOD COUNT 9231473 EOS % 2.0 % 12/18/201 4 Unknown COMPLETE BLOOD COUNT 4893776 BASO % 0.3 % 4 Unknown COMPLETE BLOOD COUNT 9310230 RDW 13.7 % 4 Unknown COMPLETE BLOOD COUNT [id number] ABS CADEN 4.00 10e9/L 014 Unknown COMPLETE BLOOD COUNT 4908270 ABS LYMPH 2.32 10e9/L 014 Unknown COMPLETE BLOOD COUNT 7399284 ABS MONO 0.51 10e9/L 014 Unknown COMPLETE BLOOD COUNT 6853205 ABS EOS 0.14 10e9/L 014 Unknown COMPLETE BLOOD COUNT 7905674 ABS BASO 0.02 10e9/L 014 Unknown COMPLETE BLOOD COUNT 5346467 RDW-SD 45.1 fL 4 Unknown COMPREHENSIVE METABOLIC 30777 AST 13 U/L 2013 Unknown COMPREHENSIVE METABOLIC 66672 ALT 11 IU/L 2013 Unknown COMPREHENSIVE METABOLIC 76881 BUN 23 MG/DL 2013 Unknown COMPREHENSIVE METABOLIC 78784 ALBUMIN 4.4 GM/DL 2013 Unknown COMPREHENSIVE METABOLIC 60167 CHLORIDE 99 MMOL/L 2013 Unknown COMPREHENSIVE METABOLIC 88100 BILI TOT 0.5 MG/DL 2013 Unknown COMPREHENSIVE METABOLIC 39417 ALK PHOS 56 U/L 2013 Unknown COMPREHENSIVE METABOLIC 42193 SODIUM 138 MMOL/L 08/27 Unknown COMPREHENSIVE METABOLIC 51099 CREATININE 0.95 MG/DL 08/10 Unknown COMPREHENSIVE METABOLIC 90204 CALCIUM 9.8 MG/DL 2013 Unknown COMPREHENSIVE METABOLIC 83492 POTASSIUM 3.5 MMOL/L 08/27 Unknown COMPREHENSIVE METABOLIC 78197 PROT TOT 6.8 GM/DL 2013 Unknown COMPREHENSIVE METABOLIC 73139 Glucose 90 MG/DL 2013 Unknown COMPREHENSIVE METABOLIC 21886 BICARB 34 MMOL/L 2013 Unknown COMPREHENSIVE METABOLIC 41807 ANION GAP 5 MEQ/L 2013 Unknown LIPASE 44173 LIPASE 11 IU/L 07/21/2014 Unknown AMYLASE 90484 AMYLASE 39 IU/L 07/21/2014 Unknown HEMOGLOBIN A1C (GLYCOSYLATED) 9819397 A1C HPLC 76472-3 6.2 % 03/05/2013 Unknown THYROID STIMULATING HORMONE 46329 TSH 6.986 uIU/ML 03/05/2013 Unknown COMPLETE BLOOD COUNT [id number] WBC 12.7 10e9/L 013 Unknown COMPLETE BLOOD COUNT 5326377 RBC 4.53 10e12/L 2012 Unknown COMPLETE BLOOD COUNT 9238161 HGB 14.7 g/dL 3 Unknown COMPLETE BLOOD COUNT 9723445 HCT DET 43.1 % 3 Unknown COMPLETE BLOOD COUNT 2621104 MCV 95.1 fL 3 Unknown COMPLETE BLOOD COUNT 1327467 MCH 32.5 pg 3 Unknown COMPLETE BLOOD COUNT 9082287 MCHC 34.1 g/dL 3 Unknown COMPLETE BLOOD COUNT 8838243 PLT 346 10e9/L 03/05/20 13 Unknown COMPLETE BLOOD COUNT 6536446 MPV 9.5 fL 3 Unknown COMPLETE BLOOD COUNT 4832035 CADEN % 67.6 % 3 Unknown COMPLETE BLOOD COUNT 2589648 LY % 22.1 % 3 Unknown COMPLETE BLOOD COUNT 1938439 MON % 6.6 % 3 Unknown COMPLETE BLOOD COUNT 1797137 EOS % 3.3 % 3 Unknown COMPLETE BLOOD COUNT 6439087 BASO % 0.4 % 3 Unknown COMPLETE BLOOD COUNT 1835735 RDW 14.0 % 3 Unknown COMPLETE BLOOD COUNT 2979272 ABS CADEN 8.59 10e9/L 013 Unknown COMPLETE BLOOD COUNT 3629496 ABS LYMPH 2.81 10e9/L 013 Unknown COMPLETE BLOOD COUNT 1083183 ABS MONO 0.84 10e9/L 013 Unknown COMPLETE BLOOD COUNT [id number] ABS EOS 0.42 10e9/L 013 Unknown COMPLETE BLOOD COUNT 7610841 ABS BASO 0.05 10e9/L 013 Unknown COMPLETE BLOOD COUNT [id number] RDW-SD 46.0 fL 3 Unknown FREE T4 14310 FREE T4 1.14 NG/DL 03/05/2013 Unknown COMPREHENSIVE METABOLIC 30147 AST 17 U/L 2012 Unknown COMPREHENSIVE METABOLIC 13959 ALT 12 IU/L 2012 Unknown COMPREHENSIVE METABOLIC 52517 BUN 24 MG/DL 2012 Unknown COMPREHENSIVE METABOLIC 36727 ALBUMIN 4.2 GM/DL 2012 Unknown COMPREHENSIVE METABOLIC 94789 CHLORIDE 93 MMOL/L 2012 Unknown COMPREHENSIVE METABOLIC 78182 BILI TOT 0.5 MG/DL 2012 Unknown COMPREHENSIVE METABOLIC 71734 ALK PHOS 75 U/L 2012 Unknown COMPREHENSIVE METABOLIC 13861 SODIUM 141 MMOL/L 03/05 Unknown COMPREHENSIVE METABOLIC 87000 CREATININE 1.36 MG/DL 02/09 Unknown COMPREHENSIVE METABOLIC 20772 CALCIUM 9.2 MG/DL 2012 Unknown COMPREHENSIVE METABOLIC 04528 POTASSIUM 3.1 MMOL/L 03/05 Unknown COMPREHENSIVE METABOLIC 38168 PROT TOT 6.9 GM/DL 2012 Unknown COMPREHENSIVE METABOLIC 85422 Glucose 123 MG/DL 2012 Unknown COMPREHENSIVE METABOLIC 69336 BICARB 36 MMOL/L 2012 Unknown COMPREHENSIVE METABOLIC 83892 ANION GAP 12 MEQ/L 2012 Unknown GFR CALC 3909540 GFR AA 51.0L ML/MIN 03/05/2013 Unknow n GFR CALC 7913803 GFR NON-AA 42.0L ML/MIN 03/05/2013 Unkno wn COMPREHENSIVE METABOLIC 66430 AST 14 U/L 2012 Unknown COMPREHENSIVE METABOLIC 72187 ALT 11 IU/L 2012 Unknown COMPREHENSIVE METABOLIC 51042 BUN 16 MG/DL 2012 Unknown COMPREHENSIVE METABOLIC 62968 ALBUMIN 4.2 GM/DL 2012 Unknown COMPREHENSIVE METABOLIC 62396 CHLORIDE 98 MMOL/L 2012 Unknown COMPREHENSIVE METABOLIC 02894 BILI TOT 0.4 MG/DL 2012 Unknown COMPREHENSIVE METABOLIC 78261 ALK PHOS 77 U/L 2012 Unknown COMPREHENSIVE METABOLIC 92237 SODIUM 139 MMOL/L 09/25 Unknown COMPREHENSIVE METABOLIC 48724 CREATININE 0.86 MG/DL 09/10 Unknown COMPREHENSIVE METABOLIC 99375 CALCIUM 9.5 MG/DL 2012 Unknown COMPREHENSIVE METABOLIC 19967 POTASSIUM 3.8 MMOL/L 09/25 Unknown COMPREHENSIVE METABOLIC 57434 PROT TOT 6.8 GM/DL 2012 Unknown COMPREHENSIVE METABOLIC 65496 Glucose 91 MG/DL 2012 Unknown COMPREHENSIVE METABOLIC 48911 BICARB 32 MMOL/L 2012 Unknown COMPREHENSIVE METABOLIC 67078 ANION GAP 9 MEQ/L 2012 Unknown FREE T4 48794 FREE T4 0.98 NG/DL 09/25/2012 Unknown THYROID STIMULATING HORMONE 59166 TSH 1.736 uIU/ML 09/25/2012 Unknown C-REACTIVE PROTEIN (CRP) QUANT 94176 CRP 2.3 MG/DL 09/25/2012 Unknown COMPLETE BLOOD COUNT 0568183 WBC 11.9 10e9/L 013 Unknown COMPLETE BLOOD COUNT 5054271 RBC 4.87 10e12/L 2012 Unknown COMPLETE BLOOD COUNT 3185215 HGB 15.1 g/dL 3 Unknown COMPLETE BLOOD COUNT 5450775 HCT DET 44.8 % 3 Unknown COMPLETE BLOOD COUNT 5416637 MCV 92.0 fL 3 Unknown COMPLETE BLOOD COUNT 5388068 MCH 31.0 pg 3 Unknown COMPLETE BLOOD COUNT [id number] MCHC 33.7 g/dL 3 Unknown COMPLETE BLOOD COUNT 5156689 PLT 343 10e9/L 09/25/19 13 Unknown COMPLETE BLOOD COUNT 8425215 MPV 9.0 fL 3 Unknown COMPLETE BLOOD COUNT 2479891 CADEN % 68.2 % 3 Unknown COMPLETE BLOOD COUNT 2105159 LY % 22.4 % 3 Unknown COMPLETE BLOOD COUNT 9099164 MON % 6.4 % 3 Unknown COMPLETE BLOOD COUNT 0383515 EOS % 2.7 % 3 Unknown COMPLETE BLOOD COUNT 4608603 BASO % 0.3 % 3 Unknown COMPLETE BLOOD COUNT 2872752 RDW 13.8 % 3 Unknown COMPLETE BLOOD COUNT 6858169 ABS CADEN 8.12 10e9/L 013 Unknown COMPLETE BLOOD COUNT [id number] ABS LYMPH 2.67 10e9/L 013 Unknown COMPLETE BLOOD COUNT 1554739 ABS MONO 0.76 10e9/L 013 Unknown COMPLETE BLOOD COUNT 0627454 ABS EOS 0.32 10e9/L 013 Unknown COMPLETE BLOOD COUNT [id number] ABS BASO 0.04 10e9/L 013 Unknown COMPLETE BLOOD COUNT 4767422 RDW-SD 45.6 fL 3 Unknown GFR CALC 9892494 GFR AA >60 ML/MIN 09/25/2012 Unknown GFR CALC 2472867 GFR NON-AA >60 ML/MIN 09/25/2012 Unknown ERYTHROCYTE SEDIMENTATION RATE 84959 ESR 19 MM/HR 05/06/2012 Unknown VITAMIN B 12 FOLIC ACID 28949|30118 VIT B 12 922 PG/ML 04/11 Unknown VITAMIN B 12 FOLIC ACID 68903|79797 FOLIC ACID 13.6 NG/ML Unknown URIC ACID 21822 URIC ACID 7.8 MG/DL 05/06/2012 Unknown COMPLETE BLOOD COUNT 75369 WBC 11.9 10e9/L 012 Unknown COMPLETE BLOOD COUNT 12349 RBC 5.30 10e12/L 2011 Unknown COMPLETE BLOOD COUNT 62219 HGB 16.6 g/dL 2 Unknown COMPLETE BLOOD COUNT 81462 HCT DET 47.2 % 2 Unknown COMPLETE BLOOD COUNT 29559 MCV 89.1 fL 2 Unknown COMPLETE BLOOD COUNT 33972 MCH 31.3 pg 2 Unknown COMPLETE BLOOD COUNT 47887 MCHC 35.2 g/dL 2 Unknown COMPLETE BLOOD COUNT 71839 PLT 362 10e9/L 05/06/20 12 Unknown COMPLETE BLOOD COUNT 86971 MPV 9.4 fL 2 Unknown COMPLETE BLOOD COUNT 34411 CADEN % 68.2 % 2 Unknown COMPLETE BLOOD COUNT 39368 LY % 22.0 % 2 Unknown COMPLETE BLOOD COUNT 85416 MON % 6.9 % 2 Unknown COMPLETE BLOOD COUNT 70451 EOS % 2.6 % 2 Unknown COMPLETE BLOOD COUNT 75930 BASO % 0.3 % 2 Unknown COMPLETE BLOOD COUNT 86791 RDW 12.8 % 2 Unknown COMPLETE BLOOD COUNT 09631 ABS CADEN 8.12 10e9/L 012 Unknown COMPLETE BLOOD COUNT 72779 ABS LYMPH 2.62 10e9/L 012 Unknown COMPLETE BLOOD COUNT 27471 ABS MONO 0.82 10e9/L 012 Unknown COMPLETE BLOOD COUNT 22609 ABS EOS 0.31 10e9/L 012 Unknown COMPLETE BLOOD COUNT 93452 ABS BASO 0.04 10e9/L 012 Unknown COMPLETE BLOOD COUNT 85414 RDW-SD 41.5 fL 05/06/201 2 Unknown GFR CALC 1959704 GFR AA >60 ML/MIN 05/06/2012 Unknown GFR CALC 7541789 GFR NON-AA 58.0L ML/MIN 05/06/2012 Unkno wn FREE T4 56012 FREE T4 1.15 NG/DL 05/06/2012 Unknown THYROID STIMULATING HORMONE 49332 TSH 1.568 uIU/ML 05/06/2012 Unknown COMPREHENSIVE METABOLIC 37419 AST 20 U/L 2011 Unknown COMPREHENSIVE METABOLIC 33238 ALT 12 IU/L 2011 Unknown COMPREHENSIVE METABOLIC 38365 BUN 20 MG/DL 2011 Unknown COMPREHENSIVE METABOLIC 72072 ALBUMIN 4.5 GM/DL 2011 Unknown COMPREHENSIVE METABOLIC 13228 CHLORIDE 91 MMOL/L 2011 Unknown COMPREHENSIVE METABOLIC 92779 BILI TOT 0.4 MG/DL 2011 Unknown COMPREHENSIVE METABOLIC 33364 ALK PHOS 73 U/L 2011 Unknown COMPREHENSIVE METABOLIC 37567 SODIUM 139 MMOL/L 05/06 Unknown COMPREHENSIVE METABOLIC 31225 CREATININE 1.02 MG/DL 04/11 Unknown COMPREHENSIVE METABOLIC 92733 CALCIUM 9.7 MG/DL 2011 Unknown COMPREHENSIVE METABOLIC 98421 POTASSIUM 3.1 MMOL/L 05/06 Unknown COMPREHENSIVE METABOLIC 66562 PROT TOT 7.3 GM/DL 2011 Unknown COMPREHENSIVE METABOLIC 08536 Glucose 118 MG/DL 2011 Unknown COMPREHENSIVE METABOLIC 96550 BICARB 33 MMOL/L 2011 Unknown COMPREHENSIVE METABOLIC 86432 ANION GAP 15 MEQ/L 2011 Unknown Procedures Procedure Codes Date ROUTINE VENIPUNCTURE CPT-4: 51751 09/29/2019 URINALYSIS NONAUTO W/O SCOPE CPT-4: 10384 09/29/2019 COMPREHEN METABOLIC PANEL CPT-4: 88709 09/29/2019 LIPID PANEL CPT-4: 80710 09/29/2019 A1C HPLC CPT-4: 20924 09/29/2019 ASSAY OF FREE THYROXINE CPT-4: 45471 09/29/2019 ASSAY THYROID STIM HORMONE CPT-4: 34023 09/29/2019 COMPLETE CBC W/AUTO DIFF WBC CPT-4: 31401 09/29/2019 URINALYSIS NONAUTO W/O SCOPE CPT-4: 05444 09/30/2018 MICROALBUMIN QUANTITATIVE CPT-4: 63723 09/30/2018 CEFTRIAXONE SODIUM INJECTION CPT-4: J0696 06/19/2018 THER/PROPH/DIAG INJ SC/IM CPT-4: 20005 06/19/2018 CEFTRIAXONE SODIUM INJECTION CPT-4: J0696 06/17/2018 THER/PROPH/DIAG INJ SC/IM CPT-4: 56370 06/17/2018 THER/PROPH/DIAG INJ SC/IM CPT-4: 26634 05/16/2018 KETOROLAC TROMETHAMINE INJ CPT-4: J1885 05/16/2018 ONDANSETRON HCL INJECTION CPT-4: J2405 05/16/2018 THER/PROPH/DIAG INJ SC/IM CPT-4: 06421 05/16/2018 ROUTINE VENIPUNCTURE CPT-4: 24223 03/20/2018 COMPREHEN METABOLIC PANEL CPT-4: 71677 03/20/2018 DEXAMETHASONE SODIUM PHOS CPT-4: J1100 02/11/2018 THER/PROPH/DIAG INJ SC/IM CPT-4: 83408 02/11/2018 TRIAMCINOLONE ACET INJ NOS CPT-4: J3301 02/11/2018 CEFTRIAXONE SODIUM INJECTION CPT-4: J0696 02/01/2018 THER/PROPH/DIAG INJ SC/IM CPT-4: 18630 02/01/2018 CEFTRIAXONE SODIUM INJECTION CPT-4: J0696 01/30/2018 THER/PROPH/DIAG INJ SC/IM CPT-4: 70245 01/30/2018 ROUTINE VENIPUNCTURE CPT-4: 30745 12/10/2017 ASSAY OF FREE THYROXINE CPT-4: 46472 12/10/2017 ASSAY THYROID STIM HORMONE CPT-4: 10751 12/10/2017 COMPREHEN METABOLIC PANEL CPT-4: 58366 12/10/2017 COMPLETE CBC W/AUTO DIFF WBC CPT-4: 26148 12/10/2017 LIPID PANEL CPT-4: 52632 12/10/2017 A1C HPLC CPT-4: 74751 12/10/2017 CEFTRIAXONE SODIUM INJECTION CPT-4: J0696 12/10/2017 THER/PROPH/DIAG INJ SC/IM CPT-4: 03154 12/10/2017 CEFTRIAXONE SODIUM INJECTION CPT-4: J0696 12/07/2017 THER/PROPH/DIAG INJ SC/IM CPT-4: 47088 12/07/2017 DEXAMETHASONE SODIUM PHOS CPT-4: J1100 12/07/2017 THER/PROPH/DIAG INJ SC/IM CPT-4: 48000 12/07/2017 CEFTRIAXONE SODIUM INJECTION CPT-4: J0696 10/08/2017 THER/PROPH/DIAG INJ SC/IM CPT-4: 56454 10/08/2017 CEFTRIAXONE SODIUM INJECTION CPT-4: J0696 09/21/2017 THER/PROPH/DIAG INJ SC/IM CPT-4: 72547 09/21/2017 CEFTRIAXONE SODIUM INJECTION CPT-4: J0696 09/20/2017 THER/PROPH/DIAG INJ SC/IM CPT-4: 78106 09/20/2017 REMOVAL OF NAIL PLATE CPT-4: 85147 08/29/2017 THER/PROPH/DIAG INJ SC/IM CPT-4: 50459 08/29/2017 TRIAMCINOLONE ACET INJ NOS CPT-4: J3301 08/29/2017 CEFTRIAXONE SODIUM INJECTION CPT-4: J0696 08/29/2017 THER/PROPH/DIAG INJ SC/IM CPT-4: 82789 08/29/2017 DESTRUCT PREMALG LESION (Cryosurgery) CPT-4: 40131 ROUTINE VENIPUNCTURE CPT-4: 55231 06/27/2017 ASSAY OF FREE THYROXINE CPT-4: 48094 06/27/2017 ASSAY THYROID STIM HORMONE CPT-4: 93313 06/27/2017 COMPREHEN METABOLIC PANEL CPT-4: 82397 06/27/2017 COMPLETE CBC W/AUTO DIFF WBC CPT-4: 44099 06/27/2017 EXC TR-EXT B9+REECE 0.5 CM< CPT-4: 99259 01/24/2017 THER/PROPH/DIAG INJ SC/IM CPT-4: 54146 08/02/2016 DEXAMETHASONE SODIUM PHOS CPT-4: J1100 08/02/2016 DESTRUCT PREMALG LESION (Cryosurgery) CPT-4: 77781 EXC TR-EXT B9+REECE 0.5 CM< CPT-4: 02924 08/01/2016 AEROBIC WOUND CULTURE & STN CPT-4: 83771 07/06/2016 CEFTRIAXONE SODIUM INJECTION CPT-4: J0696 05/25/2016 THER/PROPH/DIAG INJ SC/IM CPT-4: 02386 05/25/2016 THER/PROPH/DIAG INJ SC/IM CPT-4: 94283 04/26/2016 DEXAMETHASONE SODIUM PHOS CPT-4: J1100 04/26/2016 CEFTRIAXONE SODIUM INJECTION CPT-4: J0696 04/26/2016 THER/PROPH/DIAG INJ SC/IM CPT-4: 76955 04/26/2016 THER/PROPH/DIAG INJ SC/IM CPT-4: 57826 02/09/2016 TRIAMCINOLONE ACET INJ NOS CPT-4: J3301 02/09/2016 URINALYSIS NONAUTO W/O SCOPE CPT-4: 76984 01/24/2016 URINE CULTURE/ COLONY COUNT CPT-4: 43807 01/24/2016 THER/PROPH/DIAG INJ SC/IM CPT-4: 27678 12/08/2015 TRIAMCINOLONE ACET INJ NOS CPT-4: J3301 12/08/2015 THER/PROPH/DIAG INJ SC/IM CPT-4: 08148 10/07/2015 TRIAMCINOLONE ACET INJ NOS CPT-4: J3301 10/07/2015 DESTRUCT PREMALG LESION (Cryosurgery) CPT-4: 04790 THER/PROPH/DIAG INJ SC/IM CPT-4: 75993 03/16/2015 METHYLPREDNISOLONE 40 MG INJ CPT-4: J1030 03/16/2015 DESTRUCT PREMALG LESION (Cryosurgery) CPT-4: 11325 THER/PROPH/DIAG INJ SC/IM CPT-4: 54417 09/11/2014 METHYLPREDNISOLONE 40 MG INJ CPT-4: J1030 09/11/2014 TRIAMCINOLONE ACET INJ NOS CPT-4: J3301 09/11/2014 CEFTRIAXONE SODIUM INJECTION CPT-4: J0696 09/11/2014 THER/PROPH/DIAG INJ SC/IM CPT-4: 21684 09/11/2014 ROUTINE VENIPUNCTURE CPT-4: 60482 08/27/2014 COMPREHEN METABOLIC PANEL CPT-4: 53745 08/27/2014 COMPLETE CBC W/AUTO DIFF WBC CPT-4: 27280 08/27/2014 LIPID PANEL CPT-4: 75232 08/27/2014 ROUTINE VENIPUNCTURE CPT-4: 81129 07/21/2014 ASSAY OF AMYLASE CPT-4: 33763 07/21/2014 ASSAY OF LIPASE CPT-4: 68962 07/21/2014 THER/PROPH/DIAG INJ SC/IM CPT-4: 97838 07/15/2014 TRIAMCINOLONE ACET INJ NOS CPT-4: J3301 07/15/2014 ROUTINE VENIPUNCTURE CPT-4: 72373 05/14/2014 ASSAY OF FREE THYROXINE CPT-4: 08148 05/14/2014 ASSAY THYROID STIM HORMONE CPT-4: 78411 05/14/2014 COMPREHEN METABOLIC PANEL CPT-4: 07235 05/14/2014 COMPLETE CBC W/AUTO DIFF WBC CPT-4: 52943 05/14/2014 LIPID PANEL CPT-4: 12001 05/14/2014 CEFTRIAXONE SODIUM INJECTION CPT-4: J0696 04/21/2014 THER/PROPH/DIAG INJ SC/IM CPT-4: 35866 04/21/2014 THER/PROPH/DIAG INJ SC/IM CPT-4: 56758 04/21/2014 TRIAMCINOLONE ACET INJ NOS CPT-4: J3301 04/21/2014 THER/PROPH/DIAG INJ SC/IM CPT-4: 69660 03/04/2014 METHYLPREDNISOLONE 40 MG INJ CPT-4: J1030 03/04/2014 TRIAMCINOLONE ACET INJ NOS CPT-4: J3301 03/04/2014 CEFTRIAXONE SODIUM INJECTION CPT-4: J0696 03/04/2014 THER/PROPH/DIAG INJ SC/IM CPT-4: 26339 03/04/2014 TDAP VACCINE 7 YRS/> IM CPT-4: 48988 02/27/2014 IMMUNIZATION ADMIN CPT-4: 04257 02/27/2014 DESTRUCT PREMALG LESION (Cryosurgery) CPT-4: 01717 DESTRUCT PREMALG LES 2-14 CPT-4: 62140 01/13/2014 THER/PROPH/DIAG INJ SC/IM CPT-4: 31261 10/21/2013 METHYLPREDNISOLONE 40 MG INJ CPT-4: J1030 10/21/2013 TRIAMCINOLONE ACET INJ NOS CPT-4: J3301 10/21/2013 CEFTRIAXONE SODIUM INJECTION CPT-4: J0696 08/27/2013 THER/PROPH/DIAG INJ SC/IM CPT-4: 43061 08/27/2013 THER/PROPH/DIAG INJ SC/IM CPT-4: 90384 08/27/2013 METHYLPREDNISOLONE 40 MG INJ CPT-4: J1030 08/27/2013 TRIAMCINOLONE ACET INJ NOS CPT-4: J3301 08/27/2013 THER/PROPH/DIAG INJ SC/IM CPT-4: 14784 06/23/2013 METHYLPREDNISOLONE 40 MG INJ CPT-4: J1030 06/23/2013 TRIAMCINOLONE ACET INJ NOS CPT-4: J3301 06/23/2013 THER/PROPH/DIAG INJ SC/IM CPT-4: 49778 05/26/2013 METHYLPREDNISOLONE 40 MG INJ CPT-4: J1030 05/26/2013 TRIAMCINOLONE ACET INJ NOS CPT-4: J3301 05/26/2013 ROUTINE VENIPUNCTURE CPT-4: 59676 03/05/2013 ASSAY OF FREE THYROXINE CPT-4: 29574 03/05/2013 ASSAY THYROID STIM HORMONE CPT-4: 21098 03/05/2013 COMPREHEN METABOLIC PANEL CPT-4: 26172 03/05/2013 COMPLETE CBC W/AUTO DIFF WBC CPT-4: 16012 03/05/2013 A1C GLYCOSYLATED HEMOGLOBIN TEST CPT-4: 32814 013 DRAIN/INJECT JOINT/BURSA CPT-4: 46791 12/04/2012 METHYLPREDNISOLONE 40 MG INJ CPT-4: J1030 12/04/2012 TRIAMCINOLONE ACET INJ NOS CPT-4: J3301 12/04/2012 CEFTRIAXONE SODIUM INJECTION CPT-4: J0696 11/21/2012 THER/PROPH/DIAG INJ SC/IM CPT-4: 87758 11/21/2012 THER/PROPH/DIAG INJ SC/IM CPT-4: 64319 10/14/2012 METHYLPREDNISOLONE 40 MG INJ CPT-4: J1030 10/14/2012 TRIAMCINOLONE ACET INJ NOS CPT-4: J3301 10/14/2012 URINALYSIS NONAUTO W/O SCOPE CPT-4: 29875 09/27/2012 ROUTINE VENIPUNCTURE CPT-4: 61748 09/25/2012 ASSAY OF FREE THYROXINE CPT-4: 75706 09/25/2012 ASSAY THYROID STIM HORMONE CPT-4: 14126 09/25/2012 COMPREHEN METABOLIC PANEL CPT-4: 05391 09/25/2012 COMPLETE CBC W/AUTO DIFF WBC CPT-4: 78481 09/25/2012 C-REACTIVE PROTEIN CPT-4: 40784 09/25/2012 THER/PROPH/DIAG INJ SC/IM CPT-4: 13888 08/29/2012 METHYLPREDNISOLONE 40 MG INJ CPT-4: J1030 08/29/2012 TRIAMCINOLONE ACET INJ NOS CPT-4: J3301 08/29/2012 DESTRUCT PREMALG LESION (Cryosurgery) CPT-4: 07732 THER/PROPH/DIAG INJ SC/IM CPT-4: 24952 05/06/2012 METHYLPREDNISOLONE 40 MG INJ CPT-4: J1030 05/06/2012 TRIAMCINOLONE ACET INJ NOS CPT-4: J3301 05/06/2012 VITAMIN B 12 FOLIC ACID CPT-4: 22635|54853 05/06/2012 RBC SED RATE AUTOMATED CPT-4: 63166 05/06/2012 ROUTINE VENIPUNCTURE CPT-4: 26792 05/06/2012 ASSAY OF FREE THYROXINE CPT-4: 41670 05/06/2012 ASSAY THYROID STIM HORMONE CPT-4: 22997 05/06/2012 COMPREHEN METABOLIC PANEL CPT-4: 77434 05/06/2012 COMPLETE CBC W/AUTO DIFF WBC CPT-4: 77657 05/06/2012 ASSAY OF BLOOD/URIC ACID CPT-4: 53156 05/06/2012 THER/PROPH/DIAG INJ SC/IM CPT-4: 67880 03/19/2012 KETOROLAC TROMETHAMINE INJ CPT-4: J1885 03/19/2012 KETOROLAC TROMETHAMINE INJ CPT-4: J1885 01/30/2012 THER/PROPH/DIAG INJ SC/IM CPT-4: 37116 01/30/2012 PROMETHAZINE HCL INJECTION CPT-4: J2550 01/30/2012 THER/PROPH/DIAG INJ SC/IM CPT-4: 69507 01/24/2012 METHYLPREDNISOLONE 40 MG INJ CPT-4: J1030 01/24/2012 TRIAMCINOLONE ACET INJ NOS CPT-4: J3301 01/24/2012 THER/PROPH/DIAG INJ SC/IM CPT-4: 43962 09/13/2011 KETOROLAC TROMETHAMINE INJ CPT-4: J1885 09/13/2011 THER/PROPH/DIAG INJ SC/IM CPT-4: 61999 09/13/2011 PROMETHAZINE HCL INJECTION CPT-4: J2550 09/13/2011 CEFTRIAXONE SODIUM INJECTION CPT-4: J0696 07/20/2011 THER/PROPH/DIAG INJ SC/IM CPT-4: 59026 07/20/2011 THER/PROPH/DIAG INJ SC/IM CPT-4: 87240 07/20/2011 METHYLPREDNISOLONE INJECTION CPT-4: J2930 07/20/2011 URINALYSIS NONAUTO W/O SCOPE CPT-4: 99551 05/09/2011 CEFTRIAXONE SODIUM INJECTION CPT-4: J0696 05/09/2011 THER/PROPH/DIAG INJ SC/IM CPT-4: 43050 05/09/2011 THER/PROPH/DIAG INJ SC/IM CPT-4: 46641 05/09/2011 PROMETHAZINE HCL INJECTION CPT-4: J2550 05/09/2011 HYDRATION IV INFUSION INIT CPT-4: 67339 05/09/2011 DESTRUCT PREMALG LESION (Cryosurgery) CPT-4: 39479 DESTRUCT PREMALG LES 2-14 CPT-4: 39836 07/19/2010 REMOVAL OF SKIN TAGS <W/15 CPT-4: 81626 05/30/2010 THER/PROPH/DIAG INJ SC/IM CPT-4: 81917 04/05/2010 CEFTRIAXONE SODIUM INJECTION CPT-4: J0696 04/05/2010 TRIAMCINOLONE ACET INJ NOS CPT-4: J3301 04/05/2010 METHYLPREDNISOLONE 40 MG INJ CPT-4: J1030 04/05/2010 THER/PROPH/DIAG INJ SC/IM CPT-4: 47955 04/05/2010 TRIAMCINOLONE ACET INJ NOS CPT-4: J3301 03/09/2010 METHYLPREDNISOLONE 40 MG INJ CPT-4: J1030 03/09/2010 THER/PROPH/DIAG INJ SC/IM CPT-4: 79084 03/09/2010 THER/PROPH/DIAG INJ SC/IM CPT-4: 20270 03/09/2010 CEFTRIAXONE SODIUM INJECTION CPT-4: J0696 03/09/2010 [...] 1: 132/80 Code: 8480-6 BMI: 35.8 Code: 04419-4 Heart Rate 1: 88 bpm Height: 5'4" Respiratory Rate: 20 bpm SpO2: 95% Tempera ture: 36.9 (C) / 98.5 (F) Weight: 210 lbs 05/28/2019 Blood Pressure 1: 126/82 Code: 8480-6 BMI: 35.0 Code: 25269-0 Heart Rate 1: 88 bpm Height: 5'4" [...] 1: 128/90 Code: 8480-6 BMI: 37.2 Code: 18335-6 Heart Rate 1: 84 bpm Height: 5'4" Respiratory Rate: 20 bpm SpO2: 95% Tempera ture: 36.6 (C) / 97.8 (F) Weight: 217 lbs 08/27/2018 Blood Pressure 1: 128/88 Code: 8480-6 BMI: 38.3 Code: 47640-4 Heart Rate 1: 84 bpm Height: 5'4" [...] 1: 119/72 Code: 8480-6 BMI: 37.4 Code: 13917-2 Heart Rate 1: 82 bpm Height: 5'4" Respiratory Rate: 12 bpm SpO2: 94% Tempera ture: 35.2 (C) / 95.4 (F) Weight: 218 lbs 12/18/2017 Blood Pressure 1: 128/86 Code: 8480-6 BMI: 37.8 Code: 82135-7 Heart Rate 1: 84 bpm Height: 5'4" [...] 1: 128/82 Code: 8480-6 BMI: 35.5 Code: 79119-3 Heart Rate 1: 84 bpm Height: 5'4" [...] 1: 128/82 Code: 8480-6 BMI: 30.2 Code: 45622-7 Heart Rate 1: 80 bpm Height: 5'4" [...] 1: 128/86 Code: 8480-6 BMI: 32.8 Code: 74116-4 Heart Rate 1: 66 bpm Height: 5'4" Respiratory Rate: 18 bpm Temperature: 36 .3 (C) / 97.3 (F) Weight: 191 lbs 06/23/2013 Blood Pressure 1: 132/94 Code: 8480-6 BMI: 34.0 Code: 03067-1 Heart Rate 1: 84 bpm Height: 5'4" Respiratory Rate: 20 bpm Temperature: 36 .8 (C) / 98.2 (F) Weight: 198 lbs 05/26/2013 Blood Pressure 1: 114/80 Code: 8480-6 BMI: 35.0 Code: 70052-1 Heart Rate 1: 80 bpm Height: 5'4" Respiratory Rate: 20 bpm Temperature: 36 .4 (C) / 97.6 (F) Weight: 204 lbs 04/16/2013 Blood Pressure 1: 114/82 Code: 8480-6 BMI: 36.7 Code: 35031-0 Heart Rate 1: 84 bpm Height: 5'4" Respiratory Rate: 20 bpm Temperature: 36 .7 (C) / 98.0 (F) Weight: 214 lbs 03/05/2013 Blood Pressure 1: 136/90 Code: 8480-6 BMI: 37.1 Code: 96991-8 Heart Rate 1: 84 bpm Height: 5'4" [...] 1: 168/114 Code: 8480-6 BMI: 36.2 Code: 71340-8 Heart Rate 1: 104 bpm Height: 5'4" Respiratory Rate: 20 bpm Temperature: 36 .8 (C) / 98.2 (F) Weight: 211 lbs 11/22/2012 Blood Pressure 1: 128/90 Code: 8480-6 Heart Rate 1: 88 bpm Respiratory Rate: 20 bpm SpO2: 96% Temperature: 36.8 (C) / 98.2 (F) 11/21/2012 Blood Pressure 1: 146/100 Code: 8480-6 BMI: 35.7 Code: 08769-8 Heart Rate 1: 96 bpm Height: 5'4" [...] 1: 138/100 Code: 8480-6 BMI: 35.7 Code: 33366-2 Heart Rate 1: 96 bpm Height: 5'4" Respiratory Rate: 20 bpm Temperature: 36 .8 (C) / 98.2 (F) Weight: 208 lbs 05/06/2012 Blood Pressure 1: 154/102 Code: 8480-6 BMI: 34.7 Code: 61034-9 Heart Rate 1: 116 bpm Height: 5'4" Respiratory Rate: 20 bpm Temperature: 36 .8 (C) / 98.2 (F) Weight: 202 lbs 04/03/2012 Blood Pressure 1: 134/94 Code: 8480-6 BMI: 34.8 Code: 89692-1 Heart Rate 1: 108 bpm Height: 5'4" Respiratory Rate: 20 bpm Temperature: 36 .8 (C) / 98.2 (F) Weight: 203 lbs 03/19/2012 Blood Pressure 1: 148/106 Code: 8480-6 BMI: 35.0 Code: 14661-2 Heart Rate 1: 100 bpm Height: 5'4" Respiratory Rate: 20 bpm Temperature: 36 .6 (C) / 97.9 (F) Weight: 204 lbs 02/22/2012 Blood Pressure 1: 146/94 Code: 8480-6 He art Rate 1: 88 bpm 02/21/2012 Blood Pressure 1: 172/120 Code: 8480-6 B lood Pressure 2: 152/106 Code: 8480-6 Heart Rate 1: 116 bpm 02/20/2012 Blood Pressure 1: 160/100 Code: 8480-6 BMI: 32.0 Code: 31712-7 Heart Rate 1: 84 bpm Height: 5'7" Temperature: 36.5 (C) / 97.7 (F) Weight: 204 lbs 01/30/2012 Blood Pressure 1: 152/110 Code: 8480-6 BMI: 32.0 Code: 11962-4 Heart Rate 1: 116 bpm Height: 5'7" Respiratory Rate: 20 bpm Temperature: 37 .0 (C) / 98.6 (F) Weight: 204 lbs 01/24/2012 Blood Pressure 1: 146/100 Code: 8480-6 BMI: 32.0 Code: 59368-7 Heart Rate 1: 100 bpm Height: 5'7" Respiratory Rate: 20 bpm Temperature: 36 .7 (C) / 98.0 (F) Weight: 204 lbs 01/10/2012 Blood Pressure 1: 156/94 Code: 8480-6 BMI: 32.6 Code: 05689-7 Heart Rate 1: 72 bpm Height: 5'7" Respiratory Rate: 20 bpm Temperature: 36 .8 (C) / 98.2 (F) Weight: 208 lbs 12/11/2011 Blood Pressure 1: 146/100 Code: 8480-6 Heart Rat e 1: 116 bpm Height: 5'7" Respiratory Rate: 20 bpm Temperature: 36.9 (C) / 98.4 (F) We ight: 11/09/2011 Blood Pressure 1: 148/96 Code: 8480-6 BMI: 32.1 Code: 24948-7 Heart Rate 1: 116 bpm Height: 5'7" Respiratory Rate: 20 bpm Temperature: 36 .7 (C) / 98.0 (F) Weight: 205 lbs 09/13/2011 Blood Pressure 1: 126/88 Code: 8480-6 Heart Rate 1: 88 bpm Height: 5'7" Respiratory Rate: 20 bpm Temperature: 36.9 (C) / 98.4 (F) We ight: 08/31/2011 Blood Pressure 1: 118/82 Code: 8480-6 BMI: 32.0 Code: 62368-3 Heart Rate 1: 80 bpm Height: 5'7" Temperature: 36.4 (C) / 97.6 (F) Weight: 204 lbs 07/06/2011 Blood Pressure 1: 128/86 Code: 8480-6 BMI: 30.9 Code: 73209-1 Heart Rate 1: 92 bpm Height: 5'7" Respiratory Rate: 20 bpm Temperature: 36 .9 (C) / 98.4 (F) Weight: 197 lbs 06/06/2011 Blood Pressure 1: 112/74 Code: 8480-6 BMI: 31.0 Code: 28489-9 Heart Rate 1: 72 bpm Height: 5'7" [...] 1: 128/92 Code: 8480-6 BMI: 33.6 Code: 52145-9 Heart Rate 1: 104 bpm Height: 5'4" [...] Check-up Encounters Encounter Performer Location Codes Date ([id number]) OFFICE/OUTPATIENT VISIT EST Diagnosis: Type 2 diabetes mellitus with hyperglycemia[ICD10: E11.65] María Elena JUARES LucioJj TD [facility] CPT-4: 65407 11/20/2019 ([id number]) OFFICE/OUTPATIENT VISIT EST Diagnosis: Ingrowing nail[ICD10: L60.0] Diagnosis: Type 2 diabetes mellitus with hyperglycemia[ICD10: E11.65] Kathleen ELLISLINE Fabiola APPIAH [facility] CPT-4: 23622 10/07/2019 ([id number]) OFFICE/OUTPATIENT VISIT EST Diagnosis: DM w/o complication type II, uncontrolled[ICD10: E11.65] Diagnosis: Hypertriglyceridemia[ICD10: E78.1] Diagnosis: Essential hypertension[ICD10: I10] María Elena JEAN Fabiola APPIA[facility] CPT-4: 41746 09/30/2019 ([id number]) NURSE/OUTPATIENT VISIT EST Diagnosis: Essential (primary) hypertension[ICD10: I10] Diagnosis: Cervicalgia[ICD10: M54.2] Diagnosis: Hyperglycemia, unspecified[ICD10: R73.9] Diagnosis: Mixed hyperlipidemia[ICD10: E78.2] María Elena BASURTO TED APPIA[facility] CPT-4: 11976 09/29/2019 ([id number]) OFFICE/OUTPATIENT VISIT EST Diagnosis: Essential (primary) hypertension[ICD10: I10] Diagnosis: Fall from bed, sequela[ICD10: W06.XXXS] María Elena REED LucioJj TD [facility] CPT-4: 70315 05/28/2019 ([id number]) NURSE/OUTPATIENT VISIT EST Diagnosis: Essential (primary) hypertension[ICD10: I10] María Elena JUARES Fabiola APPIA[facility] CPT-4: 89976 05/19/2019 ([id number]) OFFICE/OUTPATIENT VISIT EST Diagnosis: Essential (primary) hypertension[ICD10: I10] Diagnosis: Type 2 diabetes mellitus with hyperglycemia[ICD10: E11.65] Diagnosis: Intervertebral disc disorders with radiculopathy, 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] Diagnosis: Hormone replacement therapy[ICD10: Z79.890] María Elena APPIAH DO [facility] CPT-4: 77264 01/22/2019 ([id number]) OFFICE/OUTPATIENT VISIT EST Diagnosis: Essential (primary) hypertension[ICD10: I10] Diagnosis: Type 2 diabetes mellitus with hyperglycemia[ICD10: E11.65] María Elena APPIAH DO [facility] CPT-4: 72900 09/30/2018 ([id number]) OFFICE/OUTPATIENT VISIT EST Diagnosis: Pain in left elbow[ICD10: M25.522] Diagnosis: Acute stress reaction[ICD10: F43.0] Diagnosis: Primary insomnia[ICD10: F51.01] Diagnosis: Abnormal weight gain[ICD10: R63.5] María Elena MONTEROLESLIE APPIAH DO [facility] CPT-4: 87042 08/27/2018 ([id number]) OFFICE/OUTPATIENT VISIT EST Diagnosis: Acute recurrent sinusitis, unspecified[ICD10: J01.91] Diagnosis: Follicular disorder, unspecified[ICD10: L73.9] Diagnosis: Tinea corporis[ICD10: B35.4] María Elena APPIAH DO [facility] CPT-4: 30733 08/09/2018 ([id number]) OFFICE/OUTPATIENT VISIT EST Diagnosis: Tinea corporis[ICD10: B35.4] Diagnosis: Anxiety disorder, unspecified[ICD10: F41.9] Diagnosis: Menopausal and female climacteric states[ICD10: N95.1] María Elenagael Appiah MARÍA ELENA Fabiola [facility] CPT-4: 34257 07/22/2018 ([id number]) NURSE/OUTPATIENT VISIT EST Diagnosis: Cellulitis of right toe[ICD10: L03.031] María Elena Appiah KYLAH BRAUNGAEL Fabiola [facility] CPT-4: 00558 06/19/2018 ([id number]) OFFICE/OUTPATIENT VISIT EST Diagnosis: Cellulitis of right toe[ICD10: L03.031] Kathleen Zuniga KYLAH BRIANNA [facility] CPT-4: 55272 06/17/2018 ([id number]) OFFICE/OUTPATIENT VISIT EST Diagnosis: Migraine without aura, intractable, without status migrainosus[ICD10: G43.019] Diagnosis: Zoster without complications[ICD10: B02.9] Kathleen APPIAH DO [facility] CPT-4: 40918 05/16/2018 ([id number]) OFFICE/OUTPATIENT VISIT EST Diagnosis: Cellulitis of right lower limb[ICD10: L03.115] Kathleen APPIAH DO [facility] CPT-4: 93591 03/20/2018 ([id number]) OFFICE/OUTPATIENT VISIT EST Diagnosis: Cellulitis of right lower limb[ICD10: L03.115] Kathleen APPIAH DO [facility] CPT-4: 64575 03/18/2018 ([id number]) OFFICE/OUTPATIENT VISIT EST Diagnosis: Cellulitis of right lower limb[ICD10: L03.115] Kathleen APPIAH DO [facility] CPT-4: 58522 03/15/2018 ([id number]) OFFICE/OUTPATIENT VISIT EST Diagnosis: Acute sinusitis, unspecified[ICD10: J01.90] Kathleen APPIAH DO [facility] CPT-4: 08963 02/11/2018 ([id number]) NURSE/OUTPATIENT VISIT EST Diagnosis: Otitis media, unspecified, right ear[ICD10: H66.91] María Elena APPIAH DO [facility] CPT-4: 21283 02/01/2018 ([id number]) OFFICE/OUTPATIENT VISIT EST Diagnosis: Acute suppurative otitis media without spontaneous rupture of ear drum, left ear[ICD10: H66.002] Diagnosis: Abnormal weight gain[ICD10: R63.5] Diagnosis: Intervertebral disc disorders with radiculopathy, 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] Kathleen APPIAH DO [facility] CPT-4: 99 214 01/30/2018 ([id number]) PREV VISIT EST AGE 40-64 Diagnosis: Encounter for general adult medical examination without abnormal findings[ICD10: Z00.00] Diagnosis: Essential (primary) hypertension[ICD10: I10] Diagnosis: Mixed hyperlipidemia[ICD10: E78.2] Diagnosis: Type 2 diabetes mellitus with hyperglycemia[ICD10: E11.65] Diagnosis: 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] María Elena [facility] CPT-4: 50781 12/18/2017 ([id number]) OFFICE/OUTPATIENT VISIT EST Diagnosis: Cellulitis of right toe[ICD10: L03.031] Diagnosis: Mixed hyperlipidemia[ICD10: E78.2] Diagnosis: Essential (primary) hypertension[ICD10: I10] Diagnosis: Hyperglycemia, unspecified[ICD10: R73.9] Diagnosis: Nontoxic goiter, 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] María Elena [facility] CPT-4: 25840 12/10/2017 ([id number]) OFFICE/OUTPATIENT VISIT EST Diagnosis: Cellulitis of right toe[ICD10: L03.031] Diagnosis: Acute sinusitis, unspecified[ICD10: J01.90] Kathleen [facility] CPT-4: 50155 12/07/2017 OFFICE/OUTPATIENT VISIT EST Diagnosis: Acute maxillary sinusitis, unspecified[ICD10: J01.00] Kathleen [facility] CPT-4: 43090 10/08/2017 ([id number]) OFFICE/OUTPATIENT VISIT EST Diagnosis: Cellulitis of left toe[ICD10: L03.032] [facility] CPT[facility]: 49542 09/21/2017 ([id number]) OFFICE/OUTPATIENT VISIT EST Diagnosis: Insomnia, unspecified[ICD10: G47.00] Diagnosis: Major depressive disorder, single episode, unspecified[ICD10: F32.9] Diagnosis: Anxiety disorder, unspecified[ICD10: F41.9] Diagnosis: Cellulitis of left toe[ICD10: L03.032] Diagnosis: Snoring[ICD10: R06.83] Kathleen [facility] CPT-4: 73680 09/20/2017 ([id number]) OFFICE/OUTPATIENT VISIT EST Diagnosis: Cellulitis of left toe[ICD10: L03.032] María Elena [facility] CPT-4: 92243 07/19/2017 OFFICE/OUTPATIENT VISIT EST Diagnosis: Chronic sinusitis, unspecified[ICD10: J32.9] Diagnosis: Generalized hyperhidrosis[ICD10: R61] Kathleen [facility] CPT-4: 14587 06/27/2017 ([id number]) OFFICE/OUTPATIENT VISIT EST Diagnosis: Intervertebral disc disorders with radiculopathy, 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] Diagnosis: Primary insomnia[ICD10: F51.01] Diagnosis: Other fatigue[ICD10: R53.83] María Elena [facility] CPT-4: 83708 04/10/2017 ([id number]) OFFICE/OUTPATIENT VISIT EST Diagnosis: Primary insomnia[ICD10: F51.01] Diagnosis: Localized edema[ICD10: R60.0] Diagnosis: 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] María Elena APPIA[facility] [employer] [facility] CPT-4: 37713 12/13/2016 ([id number]) OFFICE/OUTPATIENT VISIT EST Diagnosis: Primary insomnia[ICD10: F51.01] Diagnosis: Cyanosis[ICD10: R23.0] María Elena Bazzi [employer] [facility] CPT-4: 98442 11/01/2016 ([id number]) PREV VISIT EST AGE 40-64 Diagnosis: Encounter for gynecological examination (general) (routine) without abnormal findings[ICD10: Z01.419] Diagnosis: Encounter for routine child health examination without abnormal findings[ICD10: Z00.129] María Elena APP[facility] [employer] [facility] CPT-4: 45787 10/17/2016 ([id number]) OFFICE/OUTPATIENT VISIT EST Diagnosis: Other seasonal allergic rhinitis[ICD10: J30.2] María Elena [facility] CPT-4: 57030 10/10/2016 ([id number]) OFFICE/OUTPATIENT VISIT EST Diagnosis: Pain in left arm[ICD10: M79.602] Diagnosis: Contact with and (suspected) exposure to potentially hazardous body fluids[ICD10: Z77.21] Diagnosis: 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, 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] Diagnosis: Unspecified open wound, right foot, sequela[ICD10: S91.301S] María Elena [facility] [employer] CPT-4: 42722 09/19/2016 ([id number]) OFFICE/OUTPATIENT VISIT EST Diagnosis: Chronic sinusitis, unspecified[ICD10: J32.9] Diagnosis: Allergic rhinitis due to pollen[ICD10: J30.1] María Elena [facility] [employer] CPT-4: 38788 08/24/2016 ([id number]) OFFICE/OUTPATIENT VISIT EST Diagnosis: Acute bronchitis, unspecified[ICD10: J20.9] María Elena [facility] CPT-4: 29528 08/16/2016 ([id number]) OFFICE/OUTPATIENT VISIT EST Diagnosis: Otitis media, unspecified, right ear[ICD10: H66.91] Diagnosis: Acute bronchitis, unspecified[ICD10: J20.9] María Elena [facility] [employer] CPT-4: 14537 08/10/2016 ([id number]) OFFICE/OUTPATIENT VISIT EST Diagnosis: Acute recurrent sinusitis, unspecified[ICD10: J01.91] Diagnosis: Allergic rhinitis due to pollen[ICD10: J30.1] María Elena [facility] [employer] CPT-4: 80754 08/02/2016 ([id number]) OFFICE/OUTPATIENT VISIT EST Diagnosis: Pain in unspecified joint[ICD10: M25.50] María Elena APP[facility] [employer] CPT-4: 49644 07/27/2016 OFFICE/OUTPATIENT VISIT EST Diagnosis: 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] Diagnosis: Acute recurrent sinusitis, unspecified[ICD10: J01.91] Diagnosis: Other fatigue[ICD10: R53.83] Diagnosis: Primary insomnia[ICD10: F51.01] Diagnosis: Pain in unspecified joint[ICD10: M25.50] María Elena [facility] CPT-4: 74305 07/20/2016 ([id number]) OFFICE/OUTPATIENT VISIT EST Diagnosis: Blister (nonthermal), left great toe, initial encounter[ICD10: S90.422A] Loan [facility] CPT-4: 42755 ([id number]) OFFICE/OUTPATIENT VISIT EST Diagnosis: Acute recurrent sinusitis, unspecified[ICD10: J01.91] María Elena APPIAH DO [facility] CPT-4: 36438 05/25/2016 ([id number]) OFFICE/OUTPATIENT VISIT EST Diagnosis: Acute sinusitis, unspecified[ICD10: J01.90] María Elena APPIAH DO [facility] CPT-4: 21786 04/26/2016 ([id number]) OFFICE/OUTPATIENT VISIT EST Diagnosis: Flushing[ICD10: R23.2] Diagnosis: Primary insomnia[ICD10: F51.01] María Elena APPIAH DO [facility] CPT-4: 06721 03/02/2016 ([id number]) OFFICE/OUTPATIENT VISIT EST Diagnosis: Other seasonal allergic rhinitis[ICD10: J30.2] Loan APPIAH DO [facility] CPT-4: 70671 02/09/2016 ([id number]) OFFICE/OUTPATIENT VISIT EST Diagnosis: Primary insomnia[ICD10: F51.01] Diagnosis: Urinary tract infection, site not specified[ICD10: N39.0] María Elena APPIAH DO [facility] CPT-4: 15612 01/24/2016 ([id number]) OFFICE/OUTPATIENT VISIT EST Diagnosis: Other specified disorders of Eustachian tube, bilateral[ICD10: H69.83] Diagnosis: Allergic rhinitis, unspecified[ICD10: J30.9] Loan APPIAH DO [facility] CPT-4: 66107 12/23/2015 ([id number]) OFFICE/OUTPATIENT VISIT EST Diagnosis: Acute recurrent sinusitis, unspecified[ICD10: J01.91] Diagnosis: 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] Diagnosis: Allergic rhinitis, unspecified[ICD10: J30.9] María Elena APPIAH DO [facility] CPT-4: 33190 12/08/2015 ([id number]) OFFICE/OUTPATIENT VISIT EST Diagnosis: Allergic rhinitis, unspecified[ICD10: J30.9] Diagnosis: Pain in unspecified joint[ICD10: M25.50] María Elena APPIAH DO [facility] CPT-4: 46783 10/07/2015 ([id number]) OFFICE/OUTPATIENT VISIT EST Diagnosis: Essential (primary) hypertension[ICD10: I10] María Elena APPIAH DO [facility] CPT-4: 19727 10/06/2015 OFFICE/OUTPATIENT VISIT EST Diagnosis: Localized enlarged lymph nodes[ICD10: R59.0] Diagnosis: Local infection of the skin and subcutaneous tissue, unspecified[ICD10: L08.9] June Washingtongurmeetfatimah MARÍA ELENA APPIAH DO [facility] CPT- 4: 12090 09/14/2015 ([id number]) OFFICE/OUTPATIENT VISIT EST Diagnosis: Essential (primary) hypertension[ICD10: I10] Diagnosis: Actinic keratosis[ICD10: L57.0] María Elena APPIAH DO [facility] CPT-4: 92450 09/07/2015 ([id number]) OFFICE/OUTPATIENT VISIT EST Diagnosis: Essential (primary) hypertension[ICD10: I10] Diagnosis: Acute stress reaction[ICD10: F43.0] María Elena APPIAH DO [facility] CPT-4: 63819 08/18/2015 ([id number]) OFFICE/OUTPATIENT VISIT EST Diagnosis: Essential (primary) hypertension[ICD10: I10] María Elena APPIAH DO [facility] CPT-4: 25265 07/07/2015 ([id number]) OFFICE/OUTPATIENT VISIT EST Diagnosis: Essential (primary) hypertension[ICD10: I10] María Elena APPIAH DO [facility] CPT-4: 46757 06/24/2015 ([id number]) OFFICE/OUTPATIENT VISIT EST Diagnosis: Essential (primary) hypertension[ICD10: I10] María Elena APPIAH [facility] CPT-4: 01960 06/21/2015 ([id number]) OFFICE/OUTPATIENT VISIT EST Diagnosis: Essential (primary) hypertension[ICD10: I10] Diagnosis: Mixed hyperlipidemia[ICD10: E78.2] Diagnosis: Acute stress reaction[ICD10: F43.0] Diagnosis: Primary insomnia[ICD10: F51.01] María Elena APPIAH [facility] CPT-4: 01905 06/16/2015 ([id number]) OFFICE/OUTPATIENT VISIT EST Diagnosis: INSOMNIA NOS[ICD9: 780.52] Diagnosis: HYPERTENSION[ICD9: 401.9] Diagnosis: Stress reaction[ICD9: 308.9] María Elena APPIAH [facility] CPT-4: 96210 06/02/2015 ([id number]) OFFICE/OUTPATIENT VISIT EST Diagnosis: HYPERTENSION[ICD9: 401.9] Diagnosis: Stress reaction[ICD9: 308.9] María Elena APPIAH [facility] CPT-4: 74326 05/20/2015 ([id number]) OFFICE/OUTPATIENT VISIT EST Diagnosis: Skin lesion[ICD9: 709.9] 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] María Elena APPIAH [facility] CPT-4: 54860 05/10/2015 ([id number]) OFFICE/OUTPATIENT VISIT EST Diagnosis: SINUSITIS, ACUTE[ICD9: 461.9] Diagnosis: ALLERGIC RHINITIS[ICD9: 477.9] Diagnosis: DERMATITIS NOS[ICD9: 692.9] María Elena Rodríguez [facility] CPT-4: 90475 03/16/2015 OFFICE/OUTPATIENT VISIT EST Diagnosis: Otitis media[ICD9: 382.9] Diagnosis: SINUSITIS, ACUTE[ICD9: 461.9] June Flores MARÍA ELENA APPIAH [facility] CPT-4: 39947 09/11/2014 ([id number]) OFFICE/OUTPATIENT VISIT EST Diagnosis: HYPERLIPIDEMIA NEC/NOS[ICD9: 272.4] María Elena APPIAH DO [facility] CPT-4: 28056 08/31/2014 ([id number]) OFFICE/OUTPATIENT VISIT EST Diagnosis: - I - HYPERTENSION[ICD9: 401.9] Diagnosis: HYPERLIPIDEMIA NEC/NOS[ICD9: 272.4] María Elena APPIAH DO [facility] CPT-4: 53456 08/27/2014 ([id number]) OFFICE/OUTPATIENT VISIT EST Diagnosis: ABDOMINAL PAIN[ICD9: 789.00] Diagnosis: DYSPEPSIA[ICD9: 536.8] Diagnosis: Thoracic back pain[ICD9: 724.1] María Elena APPIAH DO [facility] CPT-4: 81348 07/21/2014 ([id number]) OFFICE/OUTPATIENT VISIT EST Diagnosis: ALLERGIC RHINITIS[ICD9: 477.9] María Elena APPIAH DO [facility] CPT-4: 13124 07/15/2014 ([id number]) OFFICE/OUTPATIENT VISIT EST Diagnosis: EDEMA[ICD9: 782.3] Diagnosis: Chronic insomnia[ICD9: 780.52] María Elena APPIAH DO [facility] CPT-4: 37807 05/18/2014 ([id number]) OFFICE/OUTPATIENT VISIT EST Diagnosis: Thyromegaly[ICD9: 240.9] Diagnosis: - I - HYPERTENSION[ICD9: 401.9] Diagnosis: ROUTINE MEDICAL EXAM[ICD9: V70.0] Diagnosis: EDEMA[ICD9: 782.3] María Elena APPIAH DO [facility] CPT-4: 05919 05/14/2014 OFFICE/OUTPATIENT VISIT EST Diagnosis: BRONCHITIS, ACUTE[ICD9: 466.0] Diagnosis: SINUSITIS, ACUTE[ICD9: 461.9] María Elena APPIAH DO [facility] CPT-4: 03219 04/21/2014 OFFICE/OUTPATIENT VISIT EST Diagnosis: SINUSITIS, ACUTE[ICD9: 461.9] June Flores MARÍA ELENA APPIAH DO [facility] CPT-4: 13070 03/04/2014 ([id number]) OFFICE/OUTPATIENT VISIT EST Diagnosis: VACCINE FOR TDAP[ICD10: Z23] María Elena APPIAH [facility] CPT-4: 56960 02/27/2014 ([id number]) OFFICE/OUTPATIENT VISIT EST Diagnosis: Seborrheic keratoses, inflamed[ICD9: 702.11] Diagnosis: ACTINIC KERATOSIS[ICD9: 702.0] Diagnosis: INSOMNIA NOS[ICD9: 780.52] [facility]: 81783 01/13/2014 OFFICE/OUTPATIENT VISIT EST 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] Diagnosis: ALLERGIC RHINITIS[ICD9: 477.9] Diagnosis: Serous otitis media[ICD9: 381.4] [facility] 86228 12/24/2013 ([id number]) OFFICE/OUTPATIENT VISIT EST Diagnosis: SINUSITIS, ACUTE[ICD9: 461.9] Diagnosis: ALLERGIC RHINITIS[ICD9: 477.9] 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] María Elena ORTA [employer] [facility] CPT-4: 13304 11/12/2013 ([id number]) OFFICE/OUTPATIENT VISIT EST Diagnosis: ALLERGIC RHINITIS[ICD9: 477.9] Diagnosis: SINUSITIS, ACUTE[ICD9: 461.9] [facility]: 38083 10/21/2013 ([id number]) OFFICE/OUTPATIENT VISIT EST Diagnosis: ASYMPTOMATIC VARICOSE VEINS[ICD9: 454.9] Diagnosis: INSOMNIA NOS[ICD9: 780.52] María Elena KENTER [employer] [facility] CPT-4: 60103 09/22/2013 OFFICE/OUTPATIENT VISIT EST Diagnosis: SINUSITIS, ACUTE[ICD9: 461.9] June Flores MARÍA ELENA ORTA [employer] [facility] CPT-4: 18292 08/27/2013 ([id number]) OFFICE/OUTPATIENT VISIT EST Diagnosis: CEPHALGIA[ICD9: 784.0] Diagnosis: CEPHALGIA, TENSION[ICD9: 307.81] 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] María Elena APPIAH DO [facility] CPT-4: 84364 08/04/2013 ([id number]) OFFICE/OUTPATIENT VISIT EST Diagnosis: Cervicalgia[ICD9: 723.1] Diagnosis: SPASM OF MUSCLE[ICD9: 728.85] Diagnosis: CEPHALGIA, TENSION[ICD9: 307.81] María Elena APPIAH DO [facility] CPT-4: 79352 07/23/2013 ([id number]) OFFICE/OUTPATIENT VISIT EST 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] Diagnosis: ALLERGIC RHINITIS[ICD9: 477.9] María Elena APPIAH DO [facility] CPT-4: 32033 06/23/2013 ([id number]) OFFICE/OUTPATIENT VISIT EST Diagnosis: ALLERGIC RHINITIS[ICD9: 477.9] Diagnosis: ACUTE SEROUS OTITIS MEDIA[ICD9: 381.01] 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] María Elena APPIAH DO [facility] CPT-4: 06613 05/26/2013 ([id number]) OFFICE/OUTPATIENT VISIT EST Diagnosis: HYPERTENSION[ICD9: 401.9] Diagnosis: EDEMA[ICD9: 782.3] Diagnosis: Serous otitis media[ICD9: 381.4] María Elena APPIAH DO [facility] CPT-4: 40400 04/16/2013 ([id number]) OFFICE/OUTPATIENT VISIT EST Diagnosis: SINUSITIS, ACUTE[ICD9: 461.9] Diagnosis: ALLERGIC RHINITIS[ICD9: 477.9] Diagnosis: EDEMA[ICD9: 782.3] Diagnosis: Thyromegaly[ICD9: 240.9] Diagnosis: MALAISE AND FATIGUE[ICD9: 780.79] María Elena APPIAH [facility] CPT-4: 87891 03/05/2013 ([id number]) OFFICE/OUTPATIENT VISIT EST Diagnosis: PAIN, LOWER BACK[ICD9: 724.2] Diagnosis: SPASM OF MUSCLE[ICD9: 728.85] María Elena APPIAH DO [facility] CPT-4: 06387 12/23/2012 OFFICE/OUTPATIENT VISIT EST Diagnosis: Low back pain[ICD9: 724.2] Lashawn Hicks KRISTYN MUMTAZ DO [facility] CPT-4: 04741 12/16/2012 ([id number]) OFFICE/OUTPATIENT VISIT EST Diagnosis: PAIN, LOWER BACK[ICD9: 724.2] Diagnosis: SCIATICA[ICD9: 724.3] Diagnosis: Lumbar herniated disc[ICD9: 722.10] María Elena COLON LucioJj TD [facility] CPT-4: 33000 12/09/2012 ([id number]) OFFICE/OUTPATIENT VISIT EST Diagnosis: PAIN, LOWER BACK[ICD9: 724.2] Diagnosis: SCIATICA[ICD9: 724.3] Diagnosis: LUMBAR DISC DISPLACEMENT[ICD9: 722.10] María Elena MARIN LucioJj TD [facility] CPT-4: 91295 12/04/2012 OFFICE/OUTPATIENT VISIT EST Diagnosis: Pneumonia[ICD9: 486] Mary JUARES LucioJj TD [facility] CPT-4: 15544 11/22/2012 ([id number]) OFFICE/OUTPATIENT VISIT EST Diagnosis: PNEUMONIA, ORGANISM[ICD9: 486] Diagnosis: Exacerbation of RAD (reactive airway disease)[ICD9: 493.92] María Elena JUARES LucioJj TD [facility] CPT-4: 69305 11/21/2012 OFFICE/OUTPATIENT VISIT EST Diagnosis: HYPERTENSION[ICD9: 401.9] Diagnosis: Cephalgia[ICD9: 784.0] Lashawn Hicks SEAMUSMINDIVICTORINO [facility] CPT-4: 46699 10/29/2012 ([id number]) OFFICE/OUTPATIENT VISIT EST Diagnosis: MALAISE AND FATIGUE[ICD9: 780.79] Diagnosis: ARTHRALGIA-MULTIPLE SITES[ICD9: 719.49] María Elena REED LucioJj TD [facility] CPT-4: 13852 10/14/2012 ([id number]) OFFICE/OUTPATIENT VISIT EST Diagnosis: URINARY FREQUENCY[ICD9: 788.41] María Elena JUAERS [facility]j [facility]: 87462 09/27/2012 ([id number]) OFFICE/OUTPATIENT VISIT EST Diagnosis: MALAISE AND FATIGUE[ICD9: 780.79] Diagnosis: ARTHRALGIA-MULTIPLE SITES[ICD9: 719.49] María Elena [facility] CPT-[facility]: 65721 09/25/2012 ([id number]) OFFICE/OUTPATIENT VISIT EST Diagnosis: SINUSITIS, ACUTE[ICD9: 461.9] 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] María Elean [facility] CPT-[facility]: 91593 08/29/2012 OFFICE/OUTPATIENT VISIT EST Diagnosis: ACTINIC KERATOSIS[ICD9: 702.0] Diagnosis: Inflamed seborrheic keratosis[ICD9: 702.11] Diagnosis: Skin cancer of face[ICD9: 173.31] Diagnosis: HYPERTENSION[ICD9: 401.9] María Elena Hicks [facility] CPT-4: 08088 08/12/2012 ([id number]) OFFICE/OUTPATIENT VISIT EST Diagnosis: ARTHRALGIA-MULTIPLE SITES[ICD9: 719.49] Diagnosis: GOUT[ICD9: 274.9] Diagnosis: HYPERTENSION[ICD9: 401.9] Diagnosis: Tachycardia[ICD9: 785.0] [facility]: 84988 05/06/2012 ([id number]) OFFICE/OUTPATIENT VISIT EST Diagnosis: INSOMNIA NOS[ICD9: 780.52] María Elena Hicks [facility] CPT-4: 62168 04/03/2012 ([id number]) OFFICE/OUTPATIENT VISIT EST Diagnosis: INSOMNIA NOS[ICD9: 780.52] Diagnosis: HYPERTENSION[ICD9: 401.9] Diagnosis: MIGRAINE NOS/NOT INTRCBL[ICD9: 346.90] María Elena MONTEROLui CulverJARED Hicks [facility] CPT-4: 86551 03/19/2012 ([id number]) OFFICE/OUTPATIENT VISIT EST Diagnosis: CELLULITIS[ICD9: 682.9] Diagnosis: Ankle pain[ICD9: 719.47] Diagnosis: HYPERTENSION[ICD9: 401.9] María Elena Td MARÍA ELENABRIANNA [facility] CPT-4: 71038 02/20/2012 ([id number]) OFFICE/OUTPATIENT VISIT EST Diagnosis: MIGRAINE NOS/NOT INTRCBL[ICD9: 346.90] Diagnosis: Vomiting[ICD9: 787.03] María Elena Td Bazzi [facility] CPT-4: 52793 01/30/2012 ([id number]) OFFICE/OUTPATIENT VISIT EST Diagnosis: EDEMA[ICD9: 782.3] Diagnosis: HYPERTENSION[ICD9: 401.9] Diagnosis: ALLERGIC RHINITIS[ICD9: 477.9] Diagnosis: ARTHRALGIA-MULTIPLE SITES[ICD9: 719.49] María Elena Seamusmindivictorino KYLAH APARNAGAEL LucioJj TD [facility] CPT-4: 09111 01/24/2012 ([id number]) OFFICE/OUTPATIENT VISIT EST Diagnosis: SPASM OF MUSCLE[ICD9: 728.85] Diagnosis: Thoracic back pain[ICD9: 724.1] Diagnosis: Cervical pain[ICD9: 723.1] María Elena Semausabbey MARÍA ELENA LucioJj KRISTYN PANDYA [facility] CPT-4: 91435 01/10/2012 OFFICE/OUTPATIENT VISIT EST Diagnosis: PAIN, LOWER BACK[ICD9: 724.2] Diagnosis: LUMBAR DISC DISPLACEMENT[ICD9: 722.10] María Elena MARIN LucioJj TD [facility] CPT-4: 19999 12/11/2011 OFFICE/OUTPATIENT VISIT EST Diagnosis: MIGRAINE NOS/NOT INTRCBL[ICD9: 346.90] Diagnosis: SINUSITIS, ACUTE[ICD9: 461.9] María Elena Seamusabbey MONTEROMARÍA ELENA LucioJj TD [facility] CPT-4: 19911 11/09/2011 OFFICE/OUTPATIENT VISIT EST Diagnosis: MIGRAINE NOS/NOT INTRCBL[ICD9: 346.90] Diagnosis: LYMPHADENOPATHY[ICD9: 785.6] María Elena Seamusmindivictorino MONTEROMARÍA ELENA LucioJj TD [facility] CPT-4: 01699 09/13/2011 OFFICE/OUTPATIENT VISIT EST Diagnosis: MALAISE AND FATIGUE[ICD9: 780.79] Diagnosis: ARTHRALGIA-MULTIPLE SITES[ICD9: 719.49] María Elena APPIAH DO [facility] CPT-4: 21997 08/31/2011 OFFICE/OUTPATIENT VISIT EST Diagnosis: SINUSITIS, ACUTE[ICD9: 461.9] María Elena APPIAH DO [facility] CPT-4: 35506 07/20/2011 OFFICE/OUTPATIENT VISIT EST Diagnosis: HYPERTENSION[ICD9: 401.9] Diagnosis: PAIN, LOWER BACK[ICD9: 724.2] Diagnosis: SPASM OF MUSCLE[ICD9: 728.85] María Elena APPIAH DO [facility] CPT-4: 61789 07/06/2011 OFFICE/OUTPATIENT VISIT EST Diagnosis: MIGRAINE NOS/NOT INTRCBL[ICD9: 346.90] Diagnosis: HYPERTENSION[ICD9: 401.9] María Elena [facility] CPT-4: 98870 05/22/2011 OFFICE/OUTPATIENT VISIT EST Diagnosis: SINUSITIS, ACUTE[ICD9: 461.9] Diagnosis: MIGRAINE NOS/NOT INTRCBL[ICD9: 346.90] Diagnosis: Dehydration[ICD9: 276.51] Diagnosis: Vomiting[ICD9: 787.03] María Elena Bazzi [facility] CPT-4: 31914 05/09/2011 ([id number]) OFFICE/OUTPATIENT VISIT EST María Elena MARIN SJj [facility] CPT-4: 77593 02/14/2011 ([id number]) OFFICE/OUTPATIENT VISIT EST María Elena Td ISAAC UJARED S. SEAMUSNDER DO [facility] CPT-4: 05292 02/03/2011 ([id number]) OFFICE/OUTPATIENT VISIT EST María Elena ISAAC UJARED S. ORENDER DO [facility] CPT-4: 77797 01/31/2011 ([id number]) OFFICE/OUTPATIENT VISIT EST María Elena Td ISAAC UJARED SJj GODOYNDER DO [facility] CPT-4: 19194 01/25/2011 ([id number]) OFFICE/OUTPATIENT VISIT EST María Elena Seamusmindivictorino MARIN SJj GODOYNDER DO [facility] CPT-4: 83043 01/18/2011 ([id number]) OFFICE/OUTPATIENT VISIT EST María Elena [facility] CPT-4: 07842 11/29/2010 ([id number]) OFFICE/OUTPATIENT VISIT, EST María Elena MONTERO [facility] CPT-4: 22855 10/10/2010 ([id number]) OFFICE/OUTPATIENT VISIT, EST María Elena MONTERO [facility] CPT-4: 19040 06/07/2010 ([id number]) OFFICE/OUTPATIENT VISIT, EST María Elena MONTERO [facility] CPT-4: 08010 04/27/2010 ([id number]) OFFICE/OUTPATIENT VISIT, EST María Elena MONTERO [facility] CPT-4: 87467 04/05/2010 ([id number]) OFFICE/OUTPATIENT VISIT, EST María Elena MONTERO [facility] CPT-4: 41226 03/09/2010 ([id number]) OFFICE/OUTPATIENT VISIT, EST María Elena MONTERO [facility] CPT-4: 11402 03/03/2010 ([id number]) OFFICE/OUTPATIENT VISIT, EST aMría Elena MONTERO [facility] CPT-4: 88707 01/17/2010 ([id number]) PREV VISIT, EST, AGE 40-64 María Elena CO[facility]MAN [facility] CPT-4: 49990 12/27/2009 Plan of Care Planned Activity Notes Codes Status Date Appointment: María Elena Appiah [facility]Ptel: [phone] [id number] [place] CANCELED 11/26/2019 Visit Diagnosis Plan: Type 2 diabetes mellitus with hy perglycemia Discussion: Januvia 100mg daily Glimepride 2mg po BID Accuchecks BID Call in 2 weeks with BS readings Get formulary book ICD-9 : 250.02 ICD-10 : E11.65 11/20/2019 Appointment: María Elena Appiah WPtel: [phone] [id number] US FOLLOW UP 11/20/2019 Patient Education: glimepiride- [employer] C[employer]on [id number] Completed 11/20/2019 Patient Education: Januvia- [employer] Coupon [id number] Completed 11/20/2019 Visit Diagnosis Plan: Ingrowing nail [...] ICD-10 : E11.65 10/07/2019 Appointment: Kathleen Zuniga [address] [place], [place] [id number] [place] OFFICE SURGERY 10/07/2019 Visit Diagnosis Plan: [...] E11.65 09/30/2019 Appointment: María Elena Appiah WPtel: [address] [place], [place] [phone] US CHECK UP 09/30/2019 Patient Education: Premarin- [employer] Coupon [id number] https://www.Wirescan/Liquidnet/resources/getResource/61/17468p65-r311-4hbx-b6 Completed 09/30/2019 Appointment: María Elena Appiah WPtel: [address] [place] [address] US LAB 09/29/2019 Appointment: María Elena Appiah WPtel: [address] [place] [address] US Won't have the new insurance till [...] W06.XXXS 05/28/2019 Appointment: María Elena Appiah WPtel: [address] [place], [place] [phone] US FOLLOW UP 05/28/2019 Appointment: María Elena Appiah WPtel: [address] [place] [address] US BP CHECK 05/19/2019 Visit Diagnosis Plan: [...] Z79.890 01/22/2019 Appointment: María Elena Appiah WPtel: [phone] [place], [place] [address] US FOLLOW UP 01/22/2019 Patient Education: estradiol- [employer] Coupon [id number] https://www.Wirescan/Liquidnet/resources/getResource/61/482l661o-6oc0-3c12-7s Completed 01/22/2019 Appointment: María Elena Appiah WPtel: [phone] [facility] US CANCELED 01/20/2019 Appointment: María Elena Appiah WPtel: [address] [place] [address] US LM NO SHOW 01/06/2019 Appointment: María Elena Appiah WPtel: [phone] [place], [place] [phone] US CANCELED 10/17/2018 Appointment: María Elena Appiah WPtel: [phone] [place], [place] [phone] US BP CHECK 10/09/2018 Visit Diagnosis Plan: Type 2 diabetes mellitus with hy perglycemia Discussion: Patient still has not gotten lab done--will go today Check UA for microalbumin Follow Up: 3 months ICD-9 : 250.02 ICD-10 : E11.65 09/30/2018 Visit Diagnosis Plan: Essential (primary) hypertension Discussion: Continue current meds and monitor BP ICD-9 : 401.9 ICD-10 : I10 09/30/2018 Appointment: María Elena Appiahtel: [address] [place] [address] US FOLLOW UP 09/30/2018 Visit Diagnosis Plan: [...] 08/27/2018 Appointment: María Elena Appiah WPtel: [address] [place] [address] ACUTE ILLNESS 08/27/2018 Appointment: María Elena Appiah WPtel: [address] [place] [address] US Patient stated she went out to [...] 08/09/2018 Appointment: María Elena Appiah WPtel: [address] [place] [address] ACUTE ILLNESS 08/09/2018 Appointment: María Elena Appiah WPtel: [address] [place] [address] NO SHOW 08/08/2018 Visit Diagnosis Plan: Anxiety [...] B35.4 07/22/2018 Appointment: María Elena Appiah WPtel: [address] [place] [address] ACUTE ILLNESS 07/22/2018 Appointment: María Elena Appiah WPtel: [address] [place] [address] US INJECTION 06/19/2018 Patient Education: Patient Medication [...] : L03.031 06/17/2018 Appointment: Kathleen Zuniga [address] [place] [address] ACUTE ILLNESS 06/17/2018 Patient Education: Patient Medication [...] ICD-10 : B02.9 05/16/2018 Appointment: Kathleen Zuniga [address] [place], [place] [phone] ACUTE ILLNESS 05/16/2018 Patient Education: Patient Medication [...] : L03.115 03/20/2018 Appointment: Kathleen Zuniga [address] [place], [place] [address] FOLLOW UP 03/20/2018 Patient Education: Patient Medication [...] ICD-10 : L03.115 03/18/2018 Appointment: Kathleen Zuniga [address] [place], [place] [phone] FOLLOW UP 03/18/2018 Patient Education: Patient Medication [...] : L03.115 03/15/2018 Appointment: Kathleen Zuniga [address] [facility] ACUTE ILLNESS 03/15/2018 Patient Education: Patient Medication [...] : J01.90 02/11/2018 Appointment: Kathleen Zuniga [address] [facility] ACUTE ILLNESS 02/11/2018 Patient Education: Patient Medication [...] : M51.16 01/30/2018 Appointment: Kathleen Zuniga [address] [facility] ACUTE ILLNESS 01/30/2018 Patient Education: Patient Medication [...] ICD-10 : E11.65 12/18/2017 Appointment: María Elena Appiha WPtel: [phone] [facility] Annual Well Visit 12/18/2017 Patient Education: Patient Medication Summary Completed 12/18/2017 Care Plan: Referral Order SNOMED-CT : [id number] Pending 12/18/2017 Appointment: María Elena Appiah WPtel: [phone] [facility] US INJECTION 12/10/2017 [...] ICD-10 : L03.031 12/07/2017 Appointment: Kathleen Zuniga [address] [place] [id number] ACUTE ILLNESS 12/07/2017 Patient Education: Patient Medication [...] ICD-10 : J01.00 10/08/2017 Appointment: Kathleen Zuniga [address] [place] [id number] ACUTE ILLNESS 10/08/2017 Patient Education: Patient Medication Summary Completed 10/08/2017 Appointment: María Elena Appiah WPtel: [phone] [id number] INJECTION 09/21/2017 Patient Education: Patient Medication Summary [...] ICD-10 : R06.83 09/20/2017 Appointment: Kathleen Zuniga [address] [place], [place] [phone] ACUTE ILLNESS 09/20/2017 Patient Education: Patient Medication [...] ICD-10 : L60.0 08/29/2017 Appointment: Kathleen Zuniga [address] [place], [place] [phone] OFFICE SURGERY 08/29/2017 Patient Education: Patient Medication Summary Completed 08/29/2017 Visit Diagnosis Plan: Actinic keratosis Discussion: Cr yotherapy as above ICD-9 : 702.0 ICD-10 : L57.0 08/01/2017 Appointment: María Elena Appiah WPtel: [phone] [id number] OFFICE SURGERY 08/01/2017 Patient Education: Patient Medication Summary Completed 08/01/2017 Appointment: María Elena Appiah WPtel: [phone] [facility] US PATIENT THOUGHT APPOINTMENT WAS TOMORROW 07/26/17 CALLED 15 MINUTES BEFORE APPT TO SAY SHE DIDN'T HAVE ANYONE TO COVER HER BUSINESS AND WOULD NOT MAKE IT NO SHOW 07/25/2017 Visit Diagnosis Plan: Cellulitis of left toe Discussio n: Clindamycin and notify if worsening or persistis ICD-9 : 681.10 ICD-10 : L03.032 07/19/2017 Appointment: María Elena Appiah [facility]el: [phone] [id number] [place] MEDICATION REVIEW 07/19/2017 Patient Education: Patient Medication Summary Completed 07/19/2017 Appointment: María Elena Appiah WPtel: [phone] [facility] US CANCELED 07/04/2017 Visit Diagnosis Plan: Generalized hyperhidrosis Discus ian: CBC, CMP, TSH, free T4 ordered to assess. will review labs. ICD-9 : 780.8 ICD-10 : R61 06/27/2017 Visit Diagnosis Plan: Chronic sinusitis, unspecified D iscussion: Referral sent to dr. albarado in [place] per patient request. patient has been treated multiple times for sinus infections with no recovery. patient was seen by dr sanchez in the past with no interventions. patient has deviated septum which may be affecting her sinuses. 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, including hip Discussion: Shave removal of above lesio n--sent to pathology ICD-9 : 216.7 ICD-10 : D23.72 01/24/2017 Appointment: María Elena Appiah WPtel: [address] [place], [place] [phone] 01/23 confirmed ~sl OFFICE SURGERY 01/24/2017 Patient Education: Patient Medication Summary Completed 01/24/2017 Appointment: Loan Sánchez [address] [place], [place] [id number] 01/09 rescheduled~sl RESCHEDULED 01/15/2017 Visit Diagnosis Plan: Localized edema Discussion: Reich fernando francoolazone to lasix with potassium prn ICD-9 : 782.3 ICD-10 : R60.0 12/13/2016 Visit Diagnosis Plan: Primary insomnia Discussion: Dis cussed Lotussomra but at this time patient wants to hold on trying any new meds and would like to try to decrease meds ICD-9 : 780.52 ICD-10 : F51.01 12/13/2016 Visit Diagnosis Plan: Other melanin hyperpigmentation Discussion: Monitor/Observe Sunscreen ICD-9 : 709.09 ICD-10 : L81.4 12/13/2016 Appointment: María Elena Appiah WPtel: [address] [place], [place] [id number] [place] 12/12 confirmed ~sl MEDICATION REVIEW 12/13/2016 Patient Education: Patient Medication Summary Completed 12/13/2016 Appointment: María Elena Appiah WPtel: [address] [place], [place] [phone] [place] rescheduled for 12/13/16 at 11am RESCHEDULED 0 12/06/2016 Appointment: María Elena Appiah [facility]el[phone] [id number] [place] CANCELED 11/23/2016 Patient Education: Patient Medication [...] 11/01/2016 Appointment: María Elena Appiah WPtel: [phone] [id number] [place] 10/31 lm `sl 11/01 lm`sl MEDICATION REVIEW 017 Patient Education: Patient Medication Summary Completed 11/01/2016 Referral: Canelo Overton WPtel: [phone] [id number] [place] Referral Initiated 10/30/2016 Visit Diagnosis Plan: [...] 10/17/2016 Appointment: María Elena Appiah WPtel: [phone] [id number] 2 confirmed ~sl PAP 10/17/2016 Patient Education: Patient Medication Summary Completed 10/17/2016 Care Plan: MAMMOGRAM SCREENING LOINC : 2 6347-5 Pending 10/17/2016 Visit Diagnosis Plan: Other seasonal allergic rhinitis Discussion: Decadron/Garamycin Nasal Cameron Mix Too soon for steroid Retry zyrtec 10mg daily ICD-9 : 477.9 ICD-10 : J30.2 10/10/2016 Appointment: María Elena Appiah WPtel: [address] [place], [place] [phone] FOLLOW UP 10/10/2016 Patient Education: Patient Medication Summary Completed 10/10/2016 Appointment: María Elena Appiah WPtel: [address] [place], [place] [phone] 10/02 reschedule ` RESCHEDULED 10/02/2016 Visit Plan: See surgery for removal of n ew left arm lesion and right foot lesion Lyrica to use next month for left arm paresthesias Continue current meds Discussed sunscreen/sunblock combo 09/19/2016 Appointment: María Elena Appiah WPtel: [address] [place], [place] [phone] 09/18 confirmed ~ FOLLOW UP 09/19/2016 Patient Education: Patient Medication Summary Completed 09/19/2016 Patient Education: Patient Medication Summary Completed 09/18/2016 Care Plan: MAMMOGRAM BOTH BREASTS LOINC : 22452-5 Pending 09/18/2016 Visit Plan: Discussed that needs [...] sinuses 08/24/2016 Appointment: María Elena Appiah WPtel: [address] [place], [place] [phone] ACUTE ILLNESS 08/24/2016 Patient Education: Patient Medication Summary Completed 08/24/2016 Patient Education: Patient Medication Summary Completed 08/23/2016 Care Plan: MAMMOGRAM SCREENING LOINC : 2 6347-5 Pending 08/23/2016 Visit Plan: Finish doxycycline Add Breo 100/25 1 p BID for 2 weeks If not improving within next 2 days will get CXR 08/16/2016 Appointment: María Elena Appiah WPtel: [address] [place] [address] ACUTE ILLNESS 08/16/2016 Patient Education: Patient Medication Summary Completed 08/16/2016 Visit Plan: Supportive care. Rest, Fluid s, Tylenol/Motrin prn fever or bodyaches. Notify if worsening symptoms. Doxycyline and Prednisone 08/10/2016 Appointment: María Elena Appiah WPtel: [address] [place] [address] 08/09 lm`sl....confirmed-sp FOLLOW UP 09/2015 Patient Education: Patient Medication Summary Completed 08/10/2016 Visit Plan: Saline nasal flushes prn. Ty lenol/Motrin prn headache. Notify if persists/symptoms worsening. Dexamethasone 8mg IM today May use coricedan and mucinex 08/02/2016 Appointment: María Elena Appiah WPtel: [address] [place] [address] ACUTE ILLNESS 08/02/2016 Patient Education: Patient Medication Summary Completed 08/02/2016 Visit Plan: Cryotherapy as above and lef t forearm lesion removal as above with 5-0 punch biopsy and sent to path Return in 10 days for suture removal 08/01/2016 Appointment: María Elena Appiah WPtel: [address] [place] [address] 07/31 confirmed`~sl OFFICE SURGERY 08/01/2016 Patient Education: Patient Medication Summary Completed 08/01/2016 Visit Plan: Stop clindamycin Check CBC, CMP, ESR now/STAT 07/27/2016 Appointment: María Elena Appiah WPtel: [address] [place] [address] ACUTE ILLNESS 07/27/2016 Patient Education: Patient Medication Summary Completed 07/27/2016 Visit Plan: Update lab and check ABIs to start with Will likely need cardiology evaluation to rule out PVD Clindamycin for 10 days Daily yogurt or probiotic Will return for removal of left arm lesions 07/20/2016 Appointment: María Elena Appiah WPtel: [address] [place] [address] ACUTE ILLNESS 07/20/2016 Patient Education: Patient Medication Summary Completed 07/20/2016 Patient Education: Patient Medication Summary Completed 07/20/2016 Care Plan: MAMMOGRAM BOTH BREASTS LOINC : 42338-8 Pending 07/20/2016 Care Plan: US EXAM CHEST LOINC : 53231-5 Pending 07/20/2016 Visit Plan: Wound culture collected from left great toe Appearance is somewhat staph like Rx as above Wound cleanser and skin care reviewed May need to add oral antibiotic if sores do not heal or continue to reoccur 07/06/2016 Appointment: Loan Sánchez [address] [place] [address] ACUTE ILLNESS 07/06/2016 Patient Education: Patient Medication Summary Completed 07/06/2016 Appointment: María Elena Appiah WPtel: [address] [place] [address] [place] INJECTION 05/25/2016 Patient Education: Patient Medication Summary Completed 05/25/2016 Visit Plan: Saline nasal flushes prn. Ty lenol/Motrin prn headache. Notify if persists/symptoms worsening. Dexamethasone and Rocephin given 04/26/2016 Appointment: María Elena Appiah WPtel: [address] [place] [address] ACUTE ILLNESS 04/26/2016 Patient Education: Patient Medication Summary Completed 04/26/2016 Visit Plan: Check CBC, CMP, TSH, FreeT4, HbA1C, estradiol, lipids in AM 03/02/2016 Appointment: María Elena Appiah WPtel: [address] [place] [address] 03/01 lm~sl ACUTE ILLNESS 03/02/2016 Patient Education: Patient Medication Summary Completed 03/02/2016 Visit Plan: Exam is nearly normal Needs to be taking daily antihistamine Would prefer to use oral steroids instead of shot but patient insist that oral steroids cause horrible headaches for her Will given kenalog IM instead 02/09/2016 Appointment: Loan Sánchez [address] [place], [place] [phone] ACUTE ILLNESS 02/09/2016 Patient Education: Patient Medication Summary Completed 02/09/2016 Visit Plan: Culture urine Macrobid DC xa nax Trial of Ativan 1mg q HS 01/24/2016 Appointment: María Elena Appiah WPtel: [address] [place] [address] ACUTE ILLNESS 01/24/2016 Patient Education: Patient Medication Summary Completed 01/24/2016 Visit Plan: No steroid or rocephin injec tion warranted Can have oral prednisone Continue current home regimen Needs to follow up with Dr Sanchez if problems persist 12/23/2015 Appointment: Loan Sánchez [address] [place] [address] ACUTE ILLNESS 12/23/2015 Patient Education: Patient Medication Summary Completed 12/23/2015 Visit Plan: Saline nasal flushes prn. Ty lenol/Motrin prn headache. Notify if persists/symptoms worsening. Kenalog 40mg IM today 12/08/2015 Appointment: María Elena Appiah WPtel: [address] [place] [address] 12/06 confirmed~ ACUTE ILLNESS 12/08/2015 Patient Education: Patient Medication Summary Completed 12/08/2015 Appointment: María Elena Appiah WPtel: [address] [place] [address] ACUTE ILLNESS 11/18/2015 Patient Education: Patient Medication Summary Completed 10/11/2015 Appointment: María Elena Appiah WPtel: [address] [place], [place] [phone] [place] INJECTION 10/07/2015 Patient Education: Patient Medication Summary Completed 10/07/2015 Visit Plan: Check renal arterial doppler s and ECHO Change amlodopine to lotrel 5/20mg q HS Will need stress test as well Check CMP, uric acid, ESR 10/06/2015 Appointment: María Elena Appiah WPtel: [address] [place] [address] ACUTE ILLNESS 10/06/2015 Patient Education: Patient Medication Summary Completed 10/06/2015 Patient Education: [facility] - [employer] - Amlodipine Besylate - 18-64 - Dynamic Portal ID Completed 10/06/2015 Appointment: María Elena Appiah WPtel: [address] [place], [place] [phone] [place] FOLLOW UP 09/22/2015 Visit Plan: Cephalexin 500 mg PO bid Mery ly topical Mupirocin to lesions on left lateral neck and face Follow-up in one week. Sooner if symptoms worsen 09/14/2015 Appointment: June Flores WPtel: [address] [place], [place] [phone] ACUTE ILLNESS 09/14/2015 Patient Education: Patient Medication Summary Completed 09/14/2015 Visit Plan: Change bystolic to bedtime d osing and amlodopine to morning dosing Cryotherapy as above to AKs 09/07/2015 Appointment: María Elena Appiah WPtel: [address] [place], [place] [phone] 09/06 appointment made and confirmed ~sl FOLLOW UP 09/07/2015 Patient Education: Patient Medication Summary Completed 09/07/2015 Visit Plan: Increase bystolic back to 20 mg daily but will split and take 10mg in AM and 10mg in PM Stress Reducers 08/18/2015 Appointment: María Elena Appiah WPtel: [address] [place], [place] [phone] 08/17/15 appt confirmed cn ACUTE ILLNESS 08/18 Patient Education: Patient Medication Summary Completed 08/18/2015 Appointment: María Elena Appiah WPtel: [address] [place], [place] [phone] BP CHECK 07/07/2015 Patient Education: Patient Medication Summary Completed 07/07/2015 Appointment: María Elena Appiah WPtel: [address] [place], [place] [phone] BP CHECK 06/24/2015 Patient Education: Patient Medication Summary Completed 06/24/2015 Appointment: María Elena Appiah WPtel: [address] [place] [address] BP CHECK 06/21/2015 Patient Education: Patient Medication Summary Completed 06/21/2015 Visit Plan: Lab discussed Continue curre nt meds and lifestyle modification Recheck lab in 6mos 06/16/2015 Appointment: María Elena Appiah WPtel: [address] [place] [address] 06/15 confirmed FOLLOW UP 06/16/2015 Patient Education: Patient Medication Summary Completed 06/16/2015 Patient Education: Patient Medication Summary Completed 06/15/2015 Visit Plan: Increase cymbalta to 60mg q HS Keep clonidine at current dose Recheck 2weeks Change xanax to klonopin 06/02/2015 Appointment: María Elena Appiah WPtel: [address] [place] [address] 06/02 lm FOLLOW UP 06/02/2015 Patient Education: Patient Medication Summary Completed 06/02/2015 Appointment: María Elena Appiah WPtel: [address] [place] [address] ACUTE ILLNESS 05/24/2015 Visit Plan: Increase clonidine to 0.2mg q HS Add cymbalta 30mg q HS Recheck 2weeks Stress Reducers Check fasting lab Discussed sleep study 05/20/2015 Appointment: María Elena Appiah WPtel: [address] [place] [address] ACUTE ILLNESS 05/20/2015 Patient Education: Patient Medication Summary Completed 05/20/2015 Patient Education: [facility] - [employer] - Cymbalta - 18-64 - Dynamic Portal ID Completed 05/20/2015 Appointment: María Elena Appiah WPtel: [address] [place] [address] BP CHECK 05/19/2015 Patient Education: Patient Medication Summary Completed 05/19/2015 Visit Plan: Topical Bactroban alternatin g with topical betamethasone Recheck 2weeks 05/10/2015 Appointment: María Elena Appiah WPtel: [address] [place] [address] 05/07 vm cn...05/07 appt confirmed OFFICE SURGER Y 05/10/2015 Patient Education: Patient Medication Summary Completed 05/10/2015 Referral: Patrick Chandler WPtel: [address] Referral Initiated 05/04/2015 Visit Plan: Saline nasal flushes prn. Ty lenol/Motrin prn headache. Notify if persists/symptoms worsening. Depomedrol 40mg IM today 03/16/2015 Appointment: María Elena Appiah WPtel: [address] [place] [address] ACUTE ILLNESS 03/16/2015 Patient Education: Patient Medication Summary Completed 03/16/2015 Appointment: María Elena Appiah WPtel: [address] [place] [address] ER Follow UP 03/09/2015 Visit Plan: Cryotherapy to lesions as ab ove 10/27/2014 Appointment: María Elena Appiah WPtel: [address] [place] [address] OFFICE SURGERY 10/27/2014 Patient Education: Patient Medication Summary Completed 10/27/2014 Appointment: June Flores WPtel: [address] [place] [address] ACUTE ILLNESS 09/11/2014 Patient Education: Patient Medication Summary Completed 09/11/2014 Visit Plan: Lab discussed Lipitor 10mg d aily Coenzyme Q-10 400mg daily Vitamin D3 5000u daily Recheck lipids with LFTs in 3mos then fwup 08/31/2014 Appointment: María Elena Appiah WPtel: [address] [place] [address] 08/28 voicemail FOLLOW UP 08/31/2014 Patient Education: Patient Medication Summary Completed 08/31/2014 Appointment: María Elena Appiahl: [address] [place], [place] [phone] LAB 08/27/2014 Appointment: María Elena Appiah WPtel: [address] [place] [address] LAB 08/27/2014 Patient Education: Patient Medication Summary Completed 08/27/2014 Appointment: María Elena Appiah WPtel: [address] [place] [address] ACUTE ILLNESS 07/23/2014 Appointment: María Elena Appiah WPtel: [address] [place] [address] ACUTE ILLNESS 07/21/2014 Patient Education: Patient Medication Summary Completed 07/21/2014 Visit Plan: Kenalog 40mg IM today Contin ue narendra and singulair Add Flonase 07/15/2014 Appointment: María Elena Appiah WPtel: [address] [place] [address] ACUTE ILLNESS 07/15/2014 Appointment: María Elena Appiah WPtel: [address] [place] [address] ACUTE ILLNESS 07/15/2014 Patient Education: Patient Medication Summary Completed 07/15/2014 Visit Plan: Will do metolazone 2.5mg prn with 6 potassium and see if causes as severe cramping Trial of of seroquel XR 50mg q PM with evening meal and let us know how works 05/18/2014 Appointment: María Elena Appiah WPtel: [address] [place] [address] 05/15 left message FOLLOW UP 05/18/2014 Patient Education: Patient Medication Summary Completed 05/18/2014 Appointment: María Elena Appiahtel: [address] [place], [place] [phone] [place] LAB 05/14/2014 Patient Education: Patient Medication Summary Completed 05/14/2014 Appointment: María Elena Appiah WPtel: [address] [place], [place] [phone] [place] INJECTION 04/22/2014 Visit Plan: Tisha and Miranda today a nd finish abx given from urgent care 04/21/2014 Appointment: María Elena Appiah WPtel: [address] [place], [place] [phone] [place] INJECTION 04/21/2014 Patient Education: Patient Medication Summary Completed 04/21/2014 Appointment: June Flores WPtel: [address] [place] [address] ACUTE ILLNESS 03/04/2014 Patient Education: Patient Medication Summary Completed 03/04/2014 Appointment: María Elena Appiah WPtel: [address] [place] [address] [place] INJECTION 02/27/2014 Patient Education: Patient Medication Summary Completed 02/27/2014 Visit Plan: Cryotherapy as above to all lesions Patient wants to try no meds for insomnia for a while and see how goes 01/13/2014 Appointment: María Elena Appiah WPtel: [address] [place] [address] OFFICE SURGERY 01/13/2014 Patient Education: Patient Medication Summary Completed 01/13/2014 Visit Plan: Stop Melatonin Stop Soma Tri al of trazadone 75mg q HS See ENT for possible tubes as has had chronic ETD and serous otitis media with numerous steroids 12/24/2013 Appointment: María Elena Appiah WPtel: [address] [place], [place] [phone] ACUTE ILLNESS 12/24/2013 Patient Education: Patient Medication Summary Completed 12/24/2013 Visit Plan: Saline nasal flushes prn. Ty lenol/Motrin prn headache. Notify if persists/symptoms worsening. 11/12/2013 Appointment: María Elena Appiah WPtel: [address] [place] [address] ACUTE ILLNESS 11/12/2013 Patient Education: Patient Medication Summary Completed 11/12/2013 Appointment: María Elena Appiah WPtel: [address] [place] [address] ACUTE ILLNESS 10/21/2013 Patient Education: Patient Medication Summary Completed 10/21/2013 Visit Plan: Sleep hygiene and sleep rout ine Melatonin 10mg q HS Support stockings and observe 09/22/2013 Appointment: María Elena Appiah WPtel: [address] [place] [address] ACUTE ILLNESS 09/22/2013 Patient Education: Patient Medication Summary Completed 09/22/2013 Appointment: June Flores WPtel: [address] [place] [address] ACUTE ILLNESS 08/27/2013 Patient Education: Patient Medication Summary Completed 08/27/2013 Visit Plan: Proceed with CT scan of head /neck Proceed with occipital nerve injections Butrans 20mcg patch weekly until can get into see Dr. Mcdonough for injections 08/04/2013 Appointment: María Elena Appiah WPtel: [address] [place] [address] FOLLOW UP 08/04/2013 Patient Education: Patient Medication Summary Completed 08/04/2013 Visit Plan: OMT done Daily neck stretche s, moist heat Increase Celebrex to 200mg BID Add flexeril 07/23/2013 Appointment: María Elena Appiah WPtel: [address] [place] [address] 07/22 voicemail FOLLOW UP 07/23/2013 Patient Education: Patient Medication Summary Completed 07/23/2013 Appointment: María Elena Appiah WPtel: [address] [place] [address] ACUTE ILLNESS 06/23/2013 Patient Education: Patient Medication Summary Completed 06/23/2013 Appointment: María Elena Appiah WPtel: [address] [place] [address] ACUTE ILLNESS 05/26/2013 Patient Education: Patient Medication Summary Completed 05/26/2013 Visit Plan: Decrease clonidine to 0.1mg TID If BP remains stable consider decreasing amlodopine Prednisone for 5 days BP check in 1mo 04/16/2013 Appointment: María Elena Appiah WPtel: [address] [place] [address] 04/14 pt called and confirmed appt FOLLOW UP 04/16/2013 Patient Education: Patient Medication Summary Completed 04/16/2013 Appointment: María Elena Appiah WPtel: [address] [place] [address] ACUTE ILLNESS 03/05/2013 Patient Education: Patient Medication Summary Completed 03/05/2013 Visit Plan: Pt has MARIA ELENA on with Dr. Mcdonough Continue Butrans patch Refill Hydrocodone early tomorrow 12/23/2012 Appointment: María Elena Appiah WPtel: [address] [place] [address] FOLLOW UP 12/23/2012 Patient Education: Patient Medication Summary Completed 12/23/2012 Appointment: Lashawn Eckert WPtel: [address] [place] [address] ACUTE ILLNESS 12/16/2012 Patient Education: Patient Medication Summary Completed 12/16/2012 Visit Plan: Proceed with updated MRI of LS spine Continue gabapentin and add soma and diclofenac Will likely need to go for another epidural 12/09/2012 Appointment: María Elena Appiah WPtel: [address] [place] [address] ACUTE ILLNESS 12/09/2012 Patient Education: Patient Medication Summary Completed 12/09/2012 Visit Plan: Injection as above Finish me drol dose pack Chiropracter this afternoon 12/04/2012 Appointment: María Elena Appiah WPtel: [address] [place] [address] ACUTE ILLNESS 12/04/2012 Patient Education: Patient Medication Summary Completed 12/04/2012 Appointment: Mary Tillman WPtel: [address] [place] [address] FOLLOW UP 11/22/2012 Patient Education: Patient Medication Summary Completed 11/22/2012 Appointment: María Elena Appiah WPtel: [address] [place] [address] ACUTE ILLNESS 11/21/2012 Patient Education: Patient Medication Summary Completed 11/21/2012 Appointment: María Elena Appiah WPtel: [address] [place] [address] BP CHECK 11/07/2012 Patient Education: Patient Medication Summary Completed 11/07/2012 Visit Plan: reports extra clonidine and extra amlodipine and extra alprazalam. extra Ketolorac and promethazine last night. Bystolic 10 mg QAM and will continue all other blood pressure meds. Pt. encouraged to rest and hydrate. Discussed stroke and OK symptoms. Pt. instructed to seek ER eval if symptoms worsen or headache persists. Pt. agrees to ER eval/EMS transport if symptoms worsen. BP re-check. 10/29/2012 Appointment: Lashawn Eckert WPtel: [address] [place] [address] ACUTE ILLNESS 10/29/2012 Patient Education: Patient Medication Summary Completed 10/29/2012 Appointment: María Elena Appiah WPtel: [address] [place] [address] ACUTE ILLNESS 10/14/2012 Patient Education: Patient Medication Summary Completed 10/14/2012 Appointment: María Elena Appiah WPtel: [address] [place], [place] [phone] UA 09/27/2012 Patient Education: Patient Medication Summary Completed 09/27/2012 Appointment: María Elena Appiah WPtel: [address] [place] [address] ACUTE ILLNESS 09/25/2012 Patient Education: Patient Medication Summary Completed 09/25/2012 Appointment: María Elena Appiah WPtel: [address] [place] [address] BP CHECK 09/24/2012 Appointment: María Elena Appiah WPtel: [address] [place] [address] ACUTE ILLNESS 08/29/2012 Patient Education: Patient Medication Summary Completed 08/29/2012 Visit Plan: Cryotherapy as above See Karlos m for right 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 ACUTE ILLNESS 05/06/2012 Patient Education: Patient Medication Summary Completed 05/06/2012 Visit Plan: Pt wants to hold on any furt her sleep medications 04/03/2012 Appointment: María Elena Appiah WPtel: [address] [place] [address] FOLLOW UP 04/03/2012 Patient Education: Patient Medication Summary Completed 04/03/2012 Appointment: María Elena Appiah WPtel: [address] [place] [address] FOLLOW UP 03/19/2012 Patient Education: Patient Medication Summary Completed 03/19/2012 Appointment: María Elena Appiah WPtel: [address] [place] [address] BP CHECK 02/22/2012 Patient Education: Patient Medication Summary Completed 02/22/2012 Appointment: María Elena Appiah WPtel: [address] [place] [address] BP CHECK 02/21/2012 Patient Education: Patient Medication Summary Completed 02/21/2012 Visit Plan: Doxycycline and bactroban fo r foot Supportive care on ankles and knees Add norvasc for BP 02/20/2012 Appointment: María Elena Appiahtel: [address] [place] [address] ER Follow UP 02/20/2012 Patient Education: Patient Medication Summary Completed 02/20/2012 Appointment: María Elena Appiahtel: [address] [place] [address] ACUTE ILLNESS 01/30/2012 Patient Education: Patient Medication Summary Completed 01/30/2012 Appointment: María Elena Appiahtel: [address] [place] [address] ACUTE ILLNESS 01/24/2012 Patient Education: Patient Medication Summary Completed 01/24/2012 Visit Plan: Daily back stretches, moist heat, Biofreeze prn OMT done 01/10/2012 Appointment: María Elena Appiahtel: [address] [place] [address] ACUTE ILLNESS 01/10/2012 Patient Education: Patient Medication Summary Completed 01/10/2012 Appointment: María Elena Appiahtel: [address] [place] [address] FOLLOW UP 12/11/2011 Patient Education: Patient Medication Summary Completed 12/11/2011 Appointment: María Elena Appiahtel: [address] [place] [address] ACUTE ILLNESS 11/09/2011 Patient Education: Patient Medication Summary Completed 11/09/2011 Appointment: María Elena Appiahtel: [address] [place] [address] ACUTE ILLNESS 09/13/2011 Patient Education: Patient Medication Summary Completed 09/13/2011 Visit Plan: Check CBC, TSH, Free T4, CMP , ESR, Vit D, B12 now Start Prednisone today 08/31/2011 Appointment: María Elnea Appiahtel: [address] [place], [place] [id number] ACUTE ILLNESS 08/31/2011 Patient Education: Patient Medication Summary Completed 08/31/2011 Appointment: María Elena Appiah WPtel: [address] [place], [place] [phone] [place] INJECTION 07/20/2011 Patient Education: Patient Medication Summary Completed 07/20/2011 Visit Plan: Continue current meds Monite r BP Cont stretches from PT 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 07/06/2011 Appointment: María Elena Appiah WPtel: [address] [place] [address] FOLLOW UP 07/06/2011 Patient Education: Patient Medication Summary Completed 07/06/2011 Appointment: María Elena Appiah WPtel: [address] [place] [address] BP CHECK 06/06/2011 Patient Education: Patient Medication Summary Completed 06/06/2011 Visit Plan: Add Bystolic at 2.5mg QAM Ad d Robaxin 750mg 2 po q HS BP check in 2wks 05/22/2011 Appointment: María Elena Appiahtel: [address] [place] [address] FOLLOW UP 05/22/2011 Patient Education: Patient Medication Summary Completed 05/22/2011 Appointment: María Elena Appiahtel: [address] [place] [address] ER Follow UP 05/09/2011 Patient Education: Patient Medication Summary Completed 05/09/2011 Appointment: María Elena Appiah WPtel: [address] [place] [address] [place] FOLLOW UP 02/22/2011 Visit Plan: Rx written for Hydrocodone 1 0/325mg #240 See Ortho 02/14/2011 Appointment: María Elena Appiah WPtel: [address] [place] [address] OMT 02/14/2011 Patient Education: Patient Medication Summary [...] lab work. 02/03/2011 Appointment: Lashawn Eckert WPtel: [address] [place] [address] ACUTE ILLNESS 02/03/2011 Patient Education: Patient Medication Summary Completed 02/03/2011 Visit Plan: OMT done Cont daily stretche s 01/31/2011 Appointment: María Elena Appiah WPtel: [address] [place] [address] ACUTE ILLNESS 01/31/2011 Patient Education: Patient Medication Summary Completed 01/31/2011 Visit Plan: Continue pain meds OMT done Proceed with PT No work this summer01/25/2011 Appointment: María Elena Appiah WPtel: [address] [place], [place] [phone] ACUTE ILLNESS 01/25/2011 Patient Education: Patient Medication Summary Completed 01/25/2011 Visit Plan: Start PT Long discussion abo ut getting pain meds from only us and can only have max of 4grams of tylenol per day Change to Hydrocodone 10/325mg 1- 2 po TID prn pain--#180 called to Radha 01/18/2011 Appointment: María Elena Appiah WPtel: [address] [place], [place] [phone] FOLLOW UP 01/18/2011 Patient Education: Patient Medication Summary Completed 01/18/2011 Visit Plan: Daily back stretches, moist heat, Biofreeze prn 11/29/2010 Appointment: María Elena Appiah WPtel: [address] [place], [place] [phone] ER Follow UP 11/29/2010 Patient Education: Patient Medication Summary Completed 11/29/2010 Visit Plan: Saline nasal flushes prn. Ty lenol/Motrin prn headache. Notify if persists/symptoms worsening. Finish augmentin Add Medrol Dose Pack 10/10/2010 Appointment: María Elena Appiah WPtel: [address] [place], [place] [phone] ACUTE ILLNESS 10/10/2010 Patient Education: Patient Medication Summary Completed 10/10/2010 Visit Plan: Cryotherapy x3 to multiple l esions on both forearms 07/19/2010 Appointment: María Elena Appiah WPtel: [address] [place] [address] OFFICE SURGERY 07/19/2010 Patient Education: Patient Medication Summary Completed 07/19/2010 Appointment: María Elena Appiah WPtel: [address] [place] [address] BP CHECK 07/06/2010 Patient Education: Patient Medication Summary Completed 07/06/2010 Appointment: María Elena Appiah WPtel: [address] [place] [address] BP CHECK 06/30/2010 Patient Education: Patient Medication Summary Completed 06/30/2010 Appointment: María Elena Appiah WPtel: [address] [place], [place] [phone] BP CHECK 06/20/2010 Patient Education: Patient Medication Summary Completed 06/20/2010 Visit Plan: Change Diovan to Exforge 160 /5mg QD OMT done to thoracics BP check in 2wks 06/07/2010 Appointment: María Elena Appiah WPtel: [address] [place], [place] [phone] [place] FOLLOW UP 06/07/2010 Patient Education: Patient Medication Summary Completed 06/07/2010 Appointment: María Elena Appiah WPtel: [address] [place] [address] BP CHECK 06/03/2010 Patient Education: Patient Medication Summary Completed 06/03/2010 Appointment: María Elena Appiah WPtel: [address] [place] [address] BP CHECK 06/01/2010 Patient Education: Patient Medication Summary Completed 06/01/2010 Visit Plan: Irritated skin tags to left neck x2 excised at base with scissors and base cauterized 05/30/2010 Appointment: María Elena Appiah WPtel: [address] [place] [address] OFFICE SURGERY 05/30/2010 Patient Education: Patient Medication Summary Completed 05/30/2010 Visit Plan: Saline nasal flushes prn. Ty lenol/Motrin prn headache. Notify if persists/symptoms worsening. Restart Nasonex Has allergy testing set for May 25 04/27/2010 Appointment: María Elena Appiah WPtel: [address] [place] [address] ACUTE ILLNESS 04/27/2010 Patient Education: Patient Medication Summary Completed 04/27/2010 Visit Plan: Saline nasal flushes prn. Ty lenol/Motrin prn headache. Notify if persists/symptoms worsening. Omnaris BID plus injections 04/05/2010 Appointment: María Elena Appiah WPtel: [address] [place] [address] ACUTE ILLNESS 04/05/2010 Patient Education: Patient Medication Summary Completed 04/05/2010 Visit Plan: Saline nasal flushes prn. Ty lenol/Motrin prn headache. Notify if persists/symptoms worsening. 03/09/2010 Appointment: María Elena Appiah WPtel: [address] [place] [address] ACUTE ILLNESS 03/09/2010 Patient Education: Patient Medication Summary Completed 03/09/2010 Visit Plan: Cont Clonidine as is Cont Pr emarin Fwup with surgery as scheduled 03/03/2010 Appointment: María Elena Appiah WPtel: [address] [place] [address] FOLLOW UP 03/03/2010 Patient Education: Patient Medication Summary Completed 03/03/2010 Visit Plan: Check Pelvic US now Discusse tacho Sal C vs Hysterectomy 01/17/2010 Appointment: María Elena Appiah WPtel: [address] [place] [address] ACUTE ILLNESS 01/17/2010 Patient Education: Patient Medication Summary Completed 01/17/2010 Visit Plan: Check fasting lab and schedu le Mammogram 2gm Na Diet Trial of Ambien 10mg qhs Fwup pending lab results 12/27/2009 Appointment: María Elena Appiah WPtel: [address] [place] [address] ESTABLISHED PATIENT 12/27/2009 Patient Education: Patient Medication Summary Completed 12/27/2009 Referral: Canelo Overton WPtel: [address] [id number] [place] Referral Initiated Referral: Philipp Flores WPtel: [address] [id number] [place] Referral Appointment Requested Instructions Comment . [...] to rest and hydrate. Discussed stroke and OK symptoms. Pt. instructed to seek ER eval [...]
--- OUTSIDE RECORDS SUMMARY | 2020-03-13 05:11 | XMS REPORT | CCD ---
Author Author Gale Appiah D.O. Organization [facility] Address [address] [place] [phone] Phone Care Team Providers Care Line Therapist Name Role Phone María Elena Appiah D.O., PP Unavailable CCM Unavailable Summary Purpose Interface Exchange Insurance Providers Payer name Policy type / Coverage type Covered libertarian ID Effective Begin Date Effective End Date [facility] Commercial Insurance [id number] Unknown Family History Family History data not found Social History Social History Element Codes Description Effective Dates Tobacco history SNOMED CT: [id number] Never smoker 05/22/2011 Allergies, Adverse Reactions, Alerts [...] Start Date Stop Date Status Fill Instructions Klor-Con 8 mEq tablet,extended release RxNorm: 597549 T FARRUKH ONE TABLET BY MOUTH TWICE A DAY 12/19/2019 No Stop Date Active allopurinol 300 mg tablet RxNorm: 267109 TAKE ONE TABLET BY LOPEZ TH DAILY 12/19/2019 No Stop Date Active glimepiride 2 mg tablet RxNorm: 002051 TAKE ONE TABLET BY MOUTH TWICE A DAY 12/19/2019 No Stop Date Active hydrocodone 10 mg-acetaminophen 325 mg tablet RxNorm: 914455 1-2 Tablet(s) Oral three times a day as needed for pain 12/10/2019 No Stop Date Active Januvia 100 mg tablet RxNorm: 026035 1 Tablet(s) Oral QD 11/20/2019 0 11/20/2019 Inactive glimepiride 2 mg tablet RxNorm: 308680 1 Tablet(s) Oral two sawyer es a day 11/20/2019 12/18/2019 Inactive cyclobenzaprine 10 mg tablet RxNorm: 977423 TAKE ONE TA BLET BY MOUTH THREE TIMES A DAY NEEDED FOR MUSCLE SPASMS 11/17/2019 No Stop Date Active doxepin 25 mg capsule RxNorm: 0606945 TAKE ONE CAPSULE B Y MOUTH EVERY NIGHT AT BEDTIME NEEDED FOR SLEEP 11/16/2019 No Stop Date Active Klor-Con 8 mEq tablet,extended release RxNorm: 794096 T FARRUKH ONE TABLET BY MOUTH TWICE A DAY 11/16/2019 12/18/2019 Inactive hydrocodone 10 mg-acetaminophen 325 mg tablet RxNorm: 671348 1-2 Tablet(s) Oral three times a day as needed for pain 11/10/2019 12/09/2019 Inactive cyclobenzaprine 10 mg tablet RxNorm: 307098 TAKE ONE TA BLET BY MOUTH THREE TIMES A DAY NEEDED FOR MUSCLE SPASMS 10/23/2019 11/16/2019 Inactive duloxetine 60 mg capsule,delayed release RxNorm: 206505 1 Capsu le(s) Oral QD 10/17/2019 04/13/2020 Active celecoxib 200 mg capsule RxNorm: 154374 1 Capsule(s) Or al two times a day as needed for pain 10/17/2019 01/14/2020 Active lisinopril 20 mg tablet RxNorm: 743729 1 Tablet(s) Oral QD 10/17/19 20 04/13/2020 Active gabapentin 300 mg capsule RxNorm: 593929 1 Capsule(s) O ral every night at bedtime 10/17/2019 01/15/2020 Active Singulair 10 mg tablet RxNorm: 020596 1 Tablet(s) Oral QD 10/17/2019 04/14/2020 Active metoprolol tartrate 100 mg tablet RxNorm: 243943 1 Tabl et(s) Oral two times a day 10/17/2019 04/13/2020 Active clonidine HCl 0.1 mg tablet RxNorm: 208451 1 Tablet(s) Oral fou r times a day 10/17/2019 04/13/2020 Active Januvia 100 mg tablet RxNorm: 500700 1 Tablet(s) Oral QD 10/17/2019 No Stop Date Active Lipitor 10 mg tablet RxNorm: 880892 1 Tablet(s) Oral QD 10/17/2019 Active Steglatro 15 mg tablet RxNorm: 7556846 1 Tablet(s) Oral QD 10/17/19 20 No Stop Date Active Klor-Con 8 mEq tablet,extended release RxNorm: 493570 1 Tablet(s) Oral two times a day 10/17/2019 11/15/2019 Inactive Glyxambi 25 mg-5 mg tablet RxNorm: 9932061 1 Tablet(s) Oral QD 01/202010/16/2019 Inactive Patient will bring in copay discount card as well Glyxambi 25 mg-5 mg tablet RxNorm: 3866510 1 Tablet(s) Oral QD 01/202010/14/2019 Inactive Patient will bring in copay discount card as well Keflex 500 mg capsule RxNorm: 224028 1 Capsule(s) Oral two time s a day 10/07/2019 10/14/2019 Inactive Premarin 1.25 mg tablet RxNorm: 201853 1 Tablet(s) Oral QD 09/30/1906/25/2020 Active hydrocodone 10 mg-acetaminophen 325 mg tablet RxNorm: 954869 1-2 Tablet(s) Oral three times a day as needed for pain 09/30/2019 09/30/2019 Inactive baclofen 10 mg tablet RxNorm: 674954 TAKE ONE TABLET BY MOUTH THREE TIMES A DAY NEEDED 09/19/2019 No Stop Date Active gabapentin 300 mg capsule RxNorm: 835292 TAKE ONE CAPSU LE BY MOUTH EVERY NIGHT AT BEDTIME 09/19/2019 10/16/2019 Inactive Klor-Con 8 mEq tablet,extended release RxNorm: 518105 T FARRUKH ONE TABLET BY MOUTH TWICE A DAY 1 Tablet(s) Oral two times a day 09/19/2019 10/16/2019 [place] [facility]ive hydrocodone 10 mg-acetaminophen 325 mg tablet RxNorm: 119707 1-2 Tablet(s) Oral three times a day as needed for pain 09/19/2019 09/29/2019 Inactive triamterene 75 mg-hydrochlorothiazide 50 mg tablet RxNorm: 3 70685 TAKE ONE TABLET BY MOUTH DAILY 09/11/2019 No Stop Date Active duloxetine 60 mg capsule,delayed release RxNorm: 071997 TAKE ONE CAPSULE BY MOUTH DAILY 09/11/2019 10/16/2019 Inactive Lipitor 10 mg tablet RxNorm: 681859 TAKE ONE TABLET BY MOUTH AT BEDTIME 09/11/2019 10/16/2019 Inactive lisinopril 20 mg tablet RxNorm: 837075 TAKE ONE TABLET BY MOUTH DAILY .... THIS REPLACE 10MG TABLETS 09/11/2019 10/16/2019 Inactive allopurinol 300 mg tablet RxNorm: 139336 TAKE ONE TABLET BY LOPEZ TH DAILY 09/11/2019 12/18/2019 Inactive celecoxib 200 mg capsule RxNorm: 938684 TAKE ONE CAPSUL E BY MOUTH TWICE A DAY NEEDED FOR PAIN 09/11/2019 10/16/2019 Inactive clonidine HCl 0.1 mg tablet RxNorm: 696897 TAKE ONE TAB LET BY MOUTH FOUR TIMES A DAY 09/11/2019 10/16/2019 Inactive doxepin 25 mg capsule RxNorm: 0907243 1 Capsule(s) Oral every night at bedtime as needed for sleep 08/21/2019 11/15/2019 Inactive hydrocodone 10 mg-acetaminophen 325 mg tablet RxNorm: 489176 1-2 Tablet(s) PO TID 08/12/2019 09/29/2019 Inactive as needed for pa in - Previous quantity #240, will start dosing for #180 in April 2011 per Doctor Td. Medrol (Dustin) 4 mg tablets in a dose pack RxNorm: 168364 Tablet(s) Oral As Directed 07/21/2019 09/29/2019 Inactive Premarin 1.25 mg tablet RxNorm: 937865 1 Tablet(s) Oral QD 07/02/2009/29/2019 Inactive hydrocodone 10 mg-acetaminophen 325 mg tablet RxNorm: 681859 1-2 Tablet(s) PO TID 07/01/2019 08/11/2019 Inactive as needed for pa in - Previous quantity #240, will start dosing for #180 in April 2011 per Doctor Td. gabapentin 300 mg capsule RxNorm: 998994 1 Capsule(s) PO QHS 201809/18/2019 Inactive celecoxib 200 mg capsule RxNorm: 308216 1 Capsule(s) Or al two times a day as needed for pain 06/27/2019 06/27/2019 Inactive furosemide 40 mg tablet RxNorm: 800146 TAKE ONE TABLET BY MOUTH EVERY MORNING NEEDED FOR EDEMA . TAKE WITH POTASSIUM 06/24/2019 No Stop Date Active doxepin 25 mg capsule RxNorm: 5109399 TAKE ONE CAPSULE B Y MOUTH EVERY NIGHT AT BEDTIME NEEDED FOR SLEEP 06/24/2019 08/20/2019 Inactive Singulair 10 mg tablet RxNorm: 006363 TAKE ONE TABLET BY MOUTH JOSÉ Y 06/24/2019 10/16/2019 Inactive lisinopril 20 mg tablet RxNorm: 236241 TAKE ONE TABLET BY MOUTH DAILY .... THIS REPLACE 10MG TABLETS 06/24/2019 09/10/2019 Inactive nystatin-triamcinolone 100,000 unit/g-0.1 % topical cream Rx Norm: 7075562 1 Application Topical two times a day 06/12/2019 06/19/2019 Inactive apply BID for 1 week nystatin-triamcinolone 100,000 unit/g-0.1 % topical cream Rx Norm: 2029043 1 Application Topical two times a day 06/12/2019 06/11/2019 Inactive apply BID for 1 week hydrocodone 10 mg-acetaminophen 325 mg tablet RxNorm: 317111 1-2 Tablet(s) PO QID as needed for pain MUST LAST 30 DAYS 05/28/2019 06/26/2019 Inactiv e (Response to an electronic controlled substance refill request - RxReferenceNumber: [id number]) baclofen 20 mg tablet RxNorm: 834308 1 Tablet(s) PO TID as needed for muscle spasm 05/19/2019 05/27/2019 Inactive gabapentin 300 mg capsule RxNorm: 389812 1 Capsule(s) PO QHS 201805/27/2019 Inactive lisinopril 20 mg tablet RxNorm: 876055 1 Tablet(s) PO Q D TAKE ONE TABLET BY MOUTH DAILY, REPLACES 10 MG DOSE 05/19/2019 06/23/2019 Inactive doxepin 25 mg capsule RxNorm: 3654723 TAKE ONE CAPSULE B Y MOUTH EVERY NIGHT AT BEDTIME NEEDED FOR SLEEP 05/16/2019 06/14/2019 Inactive lisinopril 20 mg tablet RxNorm: 833780 TAKE ONE TABLET BY MOUTH DAILY, REPLACES 10 MG DOSE 05/16/2019 05/18/2019 Inactive Singulair 10 mg tablet RxNorm: 714662 TAKE ONE TABLET BY MOUTH JOSÉ Y 05/16/2019 06/14/2019 Inactive gabapentin 300 mg capsule RxNorm: 529119 1 Capsule(s) PO QHS 201805/04/2019 Inactive estropipate 1.5 mg tablet RxNorm: 970510 1 Tablet(s) PO QD 05/05/2005/27/2019 Inactive estropipate 1.5 mg tablet RxNorm: 124548 1 Tablet(s) PO QD 05/05/2005/04/2019 Inactive gabapentin 300 mg capsule RxNorm: 843347 1 Capsule(s) PO QHS 201805/18/2019 Inactive hydrocodone 10 mg-acetaminophen 325 mg tablet RxNorm: 268985 1-2 Tablet(s) PO QID as needed for pain MUST LAST 30 DAYS 04/25/2019 05/24/2019 Inactiv e (Response to an electronic controlled substance refill request - RxReferenceNumber: [id number]) cyclobenzaprine 10 mg tablet RxNorm: 784336 TAKE ONE TA BLET BY MOUTH THREE TIMES A DAY NEEDED FOR MUSCLE SPASMS 04/24/2019 05/18/2019 Inactive metoprolol tartrate 100 mg tablet RxNorm: 673069 TAKE O NE TABLET BY MOUTH TWICE A DAY 04/24/2019 10/16/2019 Inactive Lyrica 75 mg capsule RxNorm: 434170 1 Capsule(s) PO QHS 03/25/2019 Inactive duloxetine 60 mg capsule,delayed release RxNorm: 812533 TAKE ONE CAPSULE BY MOUTH DAILY 03/21/2019 05/19/2019 Inactive triamterene 75 mg-hydrochlorothiazide 50 mg tablet RxNorm: 3 09371 TAKE ONE TABLET BY MOUTH DAILY 03/21/2019 05/19/2019 Inactive Klor-Con 8 mEq tablet,extended release RxNorm: 590244 T FARRUKH ONE TABLET BY MOUTH TWICE A DAY 03/21/2019 09/18/2019 Inactive Lipitor 10 mg tablet RxNorm: 331180 TAKE ONE TABLET BY MOUTH AT BEDTIME 03/21/2019 09/10/2019 Inactive clonidine HCl 0.1 mg tablet RxNorm: 506880 TAKE ONE TAB LET BY MOUTH FOUR TIMES A DAY 03/21/2019 05/19/2019 Inactive allopurinol 300 mg tablet RxNorm: 221080 TAKE ONE TABLET BY LOPEZ TH DAILY 03/21/2019 05/19/2019 Inactive hydrocodone 10 mg-acetaminophen 325 mg tablet RxNorm: 727879 1-2 Tablet(s) PO QID as needed for pain MUST LAST 30 DAYS 02/28/2019 03/29/2019 Inactiv e (Response to an electronic controlled substance refill request - RxReferenceNumber: [id number]) furosemide 40 mg tablet RxNorm: 091901 TAKE ONE TABLET BY MOUTH EVERY MORNING NEEDED FOR EDEMA . TAKE WITH POTASSIUM 02/21/2019 03/22/2019 Inactive cyclobenzaprine 10 mg tablet RxNorm: 184983 TAKE ONE TA BLET BY MOUTH THREE TIMES A DAY NEEDED FOR MUSCLE SPASMS 02/21/2019 04/21/2019 Inactive lisinopril 20 mg tablet RxNorm: 505107 TAKE ONE TABLET BY MOUTH DAILY, REPLACES 10 MG DOSE 02/21/2019 05/15/2019 Inactive doxepin 25 mg capsule RxNorm: 9659558 TAKE ONE CAPSULE B Y MOUTH EVERY NIGHT AT BEDTIME NEEDED FOR SLEEP 02/21/2019 05/15/2019 Inactive nystatin 100,000 unit/gram topical cream RxNorm: 138214 APPLY TO AFFECTED AREA(S) TWO TIMES A DAY 02/21/2019 03/22/2019 Inactive estradiol 1 mg tablet RxNorm: 702592 2 Tablet(s) PO QD replaces premarin 01/22/2019 05/04/2019 Inactive lisinopril 20 mg tablet RxNorm: 839125 TAKE ONE TABLET BY MOUTH DAILY, REPLACES 10 MG DOSE 01/20/2019 02/18/2019 Inactive cyclobenzaprine 10 mg tablet RxNorm: 009000 TAKE ONE TA BLET BY MOUTH THREE TIMES A DAY NEEDED FOR MUSCLE SPASMS 01/20/2019 02/18/2019 Inactive metoprolol tartrate 100 mg tablet RxNorm: 320148 TAKE O NE TABLET BY MOUTH TWICE A DAY 01/20/2019 02/18/2019 Inactive cyclobenzaprine 10 mg tablet RxNorm: 290790 TAKE ONE TA BLET BY MOUTH THREE TIMES A DAY NEEDED FOR MUSCLE SPASMS 12/19/2018 01/17/2019 Inactive lisinopril 20 mg tablet RxNorm: 227147 TAKE ONE TABLET BY MOUTH DAILY, REPLACES 10 MG DOSE 12/19/2018 01/17/2019 Inactive duloxetine 60 mg capsule,delayed release RxNorm: 532693 TAKE ONE CAPSULE BY MOUTH DAILY 12/19/2018 01/17/2019 Inactive Lipitor 10 mg tablet RxNorm: 271583 TAKE ONE TABLET BY MOUTH AT BEDTIME 12/19/2018 01/17/2019 Inactive cyclobenzaprine 10 mg tablet RxNorm: 771739 1 Tablet(s) PO TID as needed for muscle spasm 11/19/2018 12/18/2018 Inactive Singulair 10 mg tablet RxNorm: 348781 1 Tablet(s) PO QD 11/19/2018 Inactive lisinopril 20 mg tablet RxNorm: 827014 TAKE ONE TABLET BY MOUTH DAILY, REPLACES 10 MG DOSE 11/15/2018 12/18/2018 Inactive hydrocodone 10 mg-acetaminophen 325 mg tablet RxNorm: 073836 1-2 Tablet(s) PO QID as needed for pain MUST LAST 30 DAYS 11/13/2018 12/12/2018 Inactiv e (Response to an electronic controlled substance refill request - RxReferenceNumber: [id number]) nystatin 100,000 unit/gram topical cream RxNorm: 106710 APPLY TO AFFECTED AREA(S) TWO TIMES A DAY 10/23/2018 11/06/2018 Inactive lisinopril 20 mg tablet RxNorm: 265723 1 Tablet(s) PO QD replac es 10mg dose 10/18/2018 11/14/2018 Inactive hydrocodone 10 mg-acetaminophen 325 mg tablet RxNorm: 060599 1-2 Tablet(s) QID as needed for pain MUST LAST 30 DAYS 10/08/2018 11/06/2018 Inactive (Response to an electronic controlled substance refill request - RxReferenceNumber: [id number]) lisinopril 10 mg tablet RxNorm: 058376 1 Tablet(s) PO QD 10/03/2018 0 01/21/2019 Inactive Celebrex 200 mg capsule RxNorm: 703469 TAKE ONE CAPSULE BY MOUT H TWICE A DAY 09/30/2018 05/04/2019 Inactive cyclobenzaprine 10 mg tablet RxNorm: 140349 TAKE ONE TA BLET BY MOUTH THREE TIMES A DAY NEEDED FOR MUSCLE SPASMS 09/30/2018 11/18/2018 Inactive doxepin 25 mg capsule RxNorm: 8583806 TAKE ONE CAPSULE B Y MOUTH EVERY NIGHT AT BEDTIME NEEDED 09/05/2018 10/16/2018 Inactive omeprazole 40 mg capsule,delayed release RxNorm: 031991 TAKE ONE CAPSULE BY MOUTH DAILY 09/05/2018 01/21/2019 Inactive furosemide 40 mg tablet RxNorm: 167318 TAKE ONE TABLET BY MOUTH EVERY MORNING NEEDED FOR EDEMA . TAKE WITH POTASSIUM 09/05/2018 11/03/2018 Inactive phentermine 37.5 mg tablet RxNorm: 607987 1 Tablet(s) PO QAM 201701/21/2019 Inactive doxepin 25 mg capsule RxNorm: 9965367 1 Capsule(s) PO QH S as needed for sleep TAKE ONE CAPSULE BY MOUTH EVERY NIGHT AT BEDTIME NEEDED 08/27/2018 09/04/2018 Inactive Keflex 500 mg capsule RxNorm: 299197 1 Capsule(s) PO TID 08/09/2018 1 10/19/2017 Inactive Diflucan 100 mg tablet RxNorm: 856419 1 Tablet(s) PO QD 08/09/2018 Inactive Premarin 1.25 mg tablet RxNorm: 657595 2 Tablet(s) PO QD 08/09/2018 0 05/04/2019 Inactive Zofran ODT 4 mg disintegrating tablet RxNorm: 214581 1 Tablet(s) PO Q4H as needed for nausea 08/09/2018 01/21/2019 Inactive metoprolol tartrate 100 mg tablet RxNorm: 549742 TAKE O NE TABLET BY MOUTH TWICE A DAY 2018 10/04/2018 Inactive doxepin 25 mg capsule RxNorm: 5958468 TAKE ONE CAPSULE B Y MOUTH EVERY NIGHT AT BEDTIME NEEDED 2018 08/26/2018 Inactive cyclobenzaprine 10 mg tablet RxNorm: 902605 TAKE ONE TA BLET BY MOUTH THREE TIMES A DAY NEEDED FOR MUSCLE SPASMS 2018 09/29/2018 Inactive hydrocodone 10 mg-acetaminophen 325 mg tablet RxNorm: 842330 1-2 Tablet(s) QID as needed for pain MUST LAST 30 DAYS 07/29/2018 08/27/2018 Inactive (Response to an electronic controlled substance refill request - RxReferenceNumber: [id number]) nystatin 100,000 unit/gram topical powder RxNorm: 058548 Applic ation TOP BID 07/22/2018 08/04/2018 Inactive doxepin 25 mg capsule RxNorm: 5638408 1 Capsule(s) PO QHS as needed 07/22/2018 08/05/2018 Inactive triamterene 75 mg-hydrochlorothiazide 50 mg tablet RxNorm: 3 38226 TAKE ONE TABLET BY MOUTH DAILY 07/05/2018 10/02/2018 Inactive duloxetine 60 mg capsule,delayed release RxNorm: 026974 TAKE ONE CAPSULE BY MOUTH DAILY 07/05/2018 09/02/2018 Inactive Klor-Con 8 mEq tablet,extended release RxNorm: 313566 T FARRUKH ONE TABLET BY MOUTH TWICE A DAY 07/05/2018 10/02/2018 Inactive Lipitor 10 mg tablet RxNorm: 336869 TAKE ONE TABLET BY MOUTH AT BEDTIME 07/05/2018 09/02/2018 Inactive allopurinol 300 mg tablet RxNorm: 581666 TAKE ONE TABLET BY LOPEZ TH DAILY 07/05/2018 10/02/2018 Inactive clonidine HCl 0.1 mg tablet RxNorm: 306833 TAKE ONE TAB LET BY MOUTH FOUR TIMES A DAY 07/05/2018 10/02/2018 Inactive hydrocodone 10 mg-acetaminophen 325 mg tablet RxNorm: 595790 1-2 Tablet(s) QID as needed for pain MUST LAST 30 DAYS 06/28/2018 07/27/2018 Inactive (Response to an electronic controlled substance refill request - RxReferenceNumber: [id number]) MediHoney (calcium alginate-honey) 4" X 5" bandage RxNorm: 1 Application TOP QD 06/17/2018 06/26/2018 Inactive honey-hydrocolloid dressing 4" X 5" RxNorm: 1 Application TOP QD 06/17/2018 07/16/2018 Inactive furosemide 40 mg tablet RxNorm: 781512 TAKE ONE TABLET BY MOUTH EVERY MORNING NEEDED FOR EDEMA . TAKE WITH POTASSIUM 06/10/2018 07/09/2018 Inactive This is a refill request. hydrocodone 10 mg-acetaminophen 325 mg tablet RxNorm: 539191 1-2 Tablet(s) QID as needed for pain MUST LAST 30 DAYS 05/30/2018 06/27/2018 Inactive (Response to an electronic controlled substance refill request - RxReferenceNumber: [id number]) acyclovir 800 mg tablet RxNorm: 713304 1 Tablet(s) PO 5x day 201705/22/2018 Inactive Premarin 1.25 mg tablet RxNorm: 497437 1-2 Tablet(s) PO QD 05/15/20 18 07/13/2018 Inactive cyclobenzaprine 10 mg tablet RxNorm: 302649 1 Tablet(s) PO TID as needed for muscle spasm 05/09/2018 05/08/2018 Inactive Medrol (Dustin) 4 mg tablets in a dose pack RxNorm: 022791 Tablet(s) PO As Directed 05/02/2018 06/16/2018 Inactive hydrocodone 10 mg-acetaminophen 325 mg tablet RxNorm: 504824 1-2 Tablet(s) QID as needed for pain MUST LAST 30 DAYS 04/30/2018 05/29/2018 Inactive (Response to an electronic controlled substance refill request - RxReferenceNumber: [id number]) duloxetine 60 mg capsule,delayed release RxNorm: 621870 TAKE ONE CAPSULE BY MOUTH DAILY 04/16/2018 05/15/2018 Inactive Celebrex 200 mg capsule RxNorm: 190111 TAKE ONE CAPSULE BY MOUT H TWICE A DAY 04/16/2018 06/14/2018 Inactive Singulair 10 mg tablet RxNorm: 389409 TAKE ONE TABLET BY MOUTH JOSÉ Y 04/16/2018 11/19/2018 Inactive Lipitor 10 mg tablet RxNorm: 375756 TAKE ONE TABLET BY MOUTH AT BEDTIME 04/16/2018 05/15/2018 Inactive hydrocodone 10 mg-acetaminophen 325 mg tablet RxNorm: 866208 1-2 Tablet(s) QID as needed for pain MUST LAST 30 DAYS 03/29/2018 04/27/2018 Inactive (Response to an electronic controlled substance refill request - RxReferenceNumber: [id number]) cyclobenzaprine 10 mg tablet RxNorm: 091038 1 Tablet(s) PO TID as needed for muscle spasm 03/18/2018 05/09/2018 Inactive omeprazole 40 mg capsule,delayed release RxNorm: 580961 1 Capsu le(s) PO QD 02/26/2018 08/24/2018 Inactive hydrocodone 10 mg-acetaminophen 325 mg tablet RxNorm: 162510 1-2 Tablet(s) QID as needed for pain MUST LAST 30 DAYS 02/26/2018 03/27/2018 Inactive (Response to an electronic controlled substance refill request - RxReferenceNumber: [id number]) metoprolol tartrate 100 mg tablet RxNorm: 484435 1 Tablet(s) PO BID 02/18/2018 08/05/2018 Inactive Lyrica 75 mg capsule RxNorm: 170710 1 Capsule(s) PO QHS 01/30/2018 Inactive phentermine 37.5 mg tablet RxNorm: 359677 1 Tablet(s) PO QAM 201706/16/2018 Inactive hydrocodone 10 mg-acetaminophen 325 mg tablet RxNorm: 714251 1-2 Tablet(s) QID as needed for pain MUST LAST 30 DAYS 01/29/2018 02/25/2018 Inactive (Response to an electronic controlled substance refill request - RxReferenceNumber: [id number]) Klor-Con 8 mEq tablet,extended release RxNorm: 768887 1 Tablet( s) PO BID 01/14/2018 07/04/2018 Inactive allopurinol 300 mg tablet RxNorm: 002765 1 Tablet(s) PO QD 01/15/2007/04/2018 Inactive Lipitor 10 mg tablet RxNorm: 910530 1 Tablet(s) PO QHS 01/14/201812/2017 Inactive triamterene 75 mg-hydrochlorothiazide 50 mg tablet RxNorm: 3 31534 1 Tablet(s) PO QD 01/14/2018 07/04/2018 Inactive hydrocodone 10 mg-acetaminophen 325 mg tablet RxNorm: 369328 1-2 Tablet(s) QID as needed for pain MUST LAST 30 DAYS 12/27/2017 01/25/2018 Inactive (Response to an electronic controlled substance refill request - RxReferenceNumber: [id number]) Onglyza 5 mg tablet RxNorm: 132896 1 Tablet(s) PO QD 12/18/201701/29 Inactive metformin 500 mg tablet RxNorm: 903833 1 Tablet(s) PO BID 12/11/2017 12/10/2017 Inactive metformin 500 mg tablet RxNorm: 446911 1 Tablet(s) PO BID 12/11/2017 12/17/2017 Inactive furosemide 40 mg tablet RxNorm: 125094 1 Tablet(s) PO Q AM prn edema--take with potassium 12/11/2017 06/08/2018 Inactive cyclobenzaprine 10 mg tablet RxNorm: 854728 1 Tablet(s) PO TID as needed for muscle spasm 12/11/2017 03/18/2018 Inactive hydrocodone 10 mg-acetaminophen 325 mg tablet RxNorm: 644411 1-2 Tablet(s) QID as needed for pain MUST LAST 30 DAYS 10/23/2017 11/21/2017 Inactive (Response to an electronic controlled substance refill request - RxReferenceNumber: [id number]) Lipitor 10 mg tablet RxNorm: 167953 1 Tablet(s) PO QHS 10/16/201703/2018 Inactive cyclobenzaprine 10 mg tablet RxNorm: 500200 1 Tablet(s) PO TID as needed for muscle spasm 10/09/2017 12/10/2017 Inactive hydroxyzine HCl 25 mg tablet RxNorm: 960272 1 Tablet(s) PO BID as needed for anxiety 09/20/2017 01/29/2018 Inactive Effexor XR 75 mg capsule,extended release RxNorm: 021680 1 Caps ule(s) PO QD 09/20/2017 01/29/2018 Inactive metoprolol tartrate 100 mg tablet RxNorm: 906500 1 Tablet(s) PO BID 08/20/2017 02/18/2018 Inactive baclofen 20 mg tablet RxNorm: 979471 1 Tablet(s) PO TID as needed for muscle spasm 08/20/2017 01/21/2019 Inactive clonidine HCl 0.1 mg tablet RxNorm: 064929 1 Tablet(s) PO QID 08/2005/16/2018 Inactive Seroquel 25 mg tablet RxNorm: 733856 1 Tablet(s) PO QHS 08/17/2017 Inactive Seroquel 25 mg tablet RxNorm: 546175 1 Tablet(s) PO QHS 08/17/2017 Inactive Diflucan 100 mg tablet RxNorm: 065279 TAKE ONE TABLET BY MOUTH JOSÉ Y 07/25/2017 08/07/2017 Inactive hydrocodone 10 mg-acetaminophen 325 mg tablet RxNorm: 792769 1-2 Tablet(s) QID as needed for pain MUST LAST 30 DAYS 07/19/2017 08/17/2017 Inactive (Response to an electronic controlled substance refill request - RxReferenceNumber: [id number]) clindamycin 300 mg capsule RxNorm: 090854 1 Capsule(s) PO TID 07/1907/28/2017 Inactive clotrimazole-betamethasone 1 %-0.05 % topical cream RxNorm: 215523 Application TOP BID to elbow rash 07/19/2017 06/16/2018 Inactive Singulair 10 mg tablet RxNorm: 375583 Tablet(s) TAKE ONE TABLET BY MOUTH DAILY 07/18/2017 04/13/2018 Inactive triamterene 75 mg-hydrochlorothiazide 50 mg tablet RxNorm: 3 36345 1 Tablet(s) PO QD 07/18/2017 01/14/2018 Inactive Celebrex 200 mg capsule RxNorm: 773806 Capsule(s) TAKE ONE CAPSULE BY MOUTH TWICE A DAY 07/18/2017 10/15/2017 Inactive hydrocodone 10 mg-acetaminophen 325 mg tablet RxNorm: 568565 1-2 Tablet(s) QID as needed for pain MUST LAST 30 DAYS 06/19/2017 07/18/2017 Inactive (Response to an electronic controlled substance refill request - RxReferenceNumber: [id number]) hydrocodone 10 mg-acetaminophen 325 mg tablet RxNorm: 762891 1-2 Tablet(s) QID as needed for pain MUST LAST 30 DAYS 06/19/2017 06/18/2017 Inactive (Response to an electronic controlled substance refill request - RxReferenceNumber: [id number]) baclofen 20 mg tablet RxNorm: 483973 1 Tablet(s) PO TID as needed for muscle spasm 06/18/2017 08/20/2017 Inactive Medrol (Dustin) 4 mg tablets in a dose pack RxNorm: 670736 Tablet(s) PO As Directed 06/05/2017 07/18/2017 Inactive omeprazole 40 mg capsule,delayed release RxNorm: 564748 1 Capsu le(s) PO QD 04/20/2017 10/16/2017 Inactive Premarin 1.25 mg tablet RxNorm: 784739 1-2 Tablet(s) PO QD 04/11/20 17 05/15/2018 Inactive duloxetine 60 mg capsule,delayed release RxNorm: 429469 1 Capsu le(s) PO QD 04/11/2017 09/19/2017 Inactive furosemide 40 mg tablet RxNorm: 942043 1 Tablet(s) PO Q AM prn edema--take with potassium 04/11/2017 12/11/2017 Inactive Klor-Con 8 mEq tablet,extended release RxNorm: 968607 1 Tablet( s) PO BID 04/11/2017 01/14/2018 Inactive Lipitor 10 mg tablet RxNorm: 690968 1 Tablet(s) PO QHS 04/11/201702/2018 Inactive amlodipine 5 mg-benazepril 20 mg capsule RxNorm: 299825 1 Capsu le(s) PO QD 04/11/2017 01/29/2018 Inactive allopurinol 300 mg tablet RxNorm: 453786 1 Tablet(s) PO QD 04/11/20 17 01/14/2018 Inactive clonidine HCl 0.1 mg tablet RxNorm: 657053 1 Tablet(s) PO QID 04/0508/19/2017 Inactive baclofen 20 mg tablet RxNorm: 526805 1 Tablet(s) PO TID as needed for muscle spasm 04/02/2017 06/18/2017 Inactive Premarin 1.25 mg tablet RxNorm: 832704 1-2 Tablet(s) PO QD 03/20/20 17 04/10/2017 Inactive hydrocodone 10 mg-acetaminophen 325 mg tablet RxNorm: 460161 1-2 Tablet(s) QID as needed for pain MUST LAST 30 DAYS 03/14/2017 01/21/2019 Inactive (Response to an electronic controlled substance refill request - RxReferenceNumber: [id number]) metoprolol tartrate 100 mg tablet RxNorm: 695596 1 Tablet(s) PO BID 02/12/2017 08/20/2017 Inactive hydrocodone 10 mg-acetaminophen 325 mg tablet RxNorm: 827648 1-2 Tablet(s) QID as needed for pain MUST LAST 30 DAYS 02/08/2017 03/09/2017 Inactive (Response to an electronic controlled substance refill request - RxReferenceNumber: [id number]) metoprolol tartrate 100 mg tablet RxNorm: 160682 TAKE O NE TABLET BY MOUTH TWICE A DAY 01/11/2017 02/12/2017 Inactive metoprolol tartrate 100 mg tablet RxNorm: 250049 1 Tablet(s) PO BID 12/18/2016 12/17/2016 Inactive metoprolol tartrate 100 mg tablet RxNorm: 567375 1 Tablet(s) PO BID 12/18/2016 01/10/2017 Inactive furosemide 40 mg tablet RxNorm: 067639 1 Tablet(s) PO Q AM prn edema--take with potassium 12/13/2016 02/10/2017 Inactive amitriptyline 100 mg tablet RxNorm: 450015 1 Tablet(s) PO QHS 11/2812/12/2016 Inactive baclofen 20 mg tablet RxNorm: 084515 1 Tablet(s) PO TID as needed for muscle spasm 11/14/2016 04/01/2017 Inactive triamterene 75 mg-hydrochlorothiazide 50 mg tablet RxNorm: 3 69926 1 Tablet(s) PO QD 11/14/2016 11/13/2016 Inactive metolazone 2.5 mg tablet RxNorm: 880721 TAKE ONE TABLET BY MOUTH DAILY NEEDED FOR EDEMA 11/14/2016 12/12/2016 Inactive triamterene 75 mg-hydrochlorothiazide 50 mg tablet RxNorm: 3 58003 1 Tablet(s) PO QD 11/14/2016 07/18/2017 Inactive amitriptyline 50 mg tablet RxNorm: 223206 TAKE ONE TABL ET BY MOUTH AT BEDTIME NEEDED FOR SLEEP 11/14/2016 11/27/2016 Inactive Cymbalta 60 mg capsule,delayed release RxNorm: 502765 1 Capsule (s) PO QHS 11/14/2016 12/12/2016 Inactive clonidine HCl 0.1 mg tablet RxNorm: 736483 1 Tablet(s) PO QID 11/1304/04/2017 Inactive amitriptyline 50 mg tablet RxNorm: 834735 1 Tablet(s) P O QHS as needed for sleep 11/01/2016 11/27/2016 Inactive duloxetine 60 mg capsule,delayed release RxNorm: 252975 TAKE ONE CAPSULE BY MOUTH DAILY 10/20/2016 01/17/2017 Inactive allopurinol 300 mg tablet RxNorm: 210354 TAKE ONE TABLET BY LOPEZ TH DAILY 10/20/2016 01/16/2017 Inactive Lyrica 75 mg capsule RxNorm: 395318 TAKE ONE CAPSULE BY MOUTH EVERY NIGHT AT BEDTIME 10/20/2016 12/10/2016 Inactive Klor-Con 8 mEq tablet,extended release RxNorm: 899166 T FARRUKH ONE TABLET BY MOUTH TWICE A DAY 10/20/2016 01/17/2017 Inactive Celebrex 200 mg capsule RxNorm: 381924 TAKE ONE CAPSULE BY MOUT H TWICE A DAY 10/20/2016 07/18/2017 Inactive Bystolic 10 mg tablet RxNorm: 945112 TAKE ONE TABLET BY MOUTH EVERY NIGHT AT BEDTIME 10/20/2016 12/17/2016 Inactive amlodipine 5 mg-benazepril 20 mg capsule RxNorm: 039777 TAKE ONE CAPSULE BY MOUTH EVERY NIGHT AT BEDTIME -- TO REPLACE AMLODOPINE 10/20/20162016 Inactive Lipitor 10 mg tablet RxNorm: 682150 TAKE ONE TABLET BY MOUTH EVERY NIGHT AT BEDTIME 10/20/2016 01/17/2017 Inactive alprazolam 0.5 mg tablet RxNorm: 460750 3 Tablet(s) PO QHS as needed for sleep/anxiety 09/20/2016 10/31/2016 Inactive Tamiflu 75 mg capsule RxNorm: 432312 1 Capsule(s) PO QD 09/19/2016 Inactive Lyrica 75 mg capsule RxNorm: 505313 1 Capsule(s) PO QHS 09/19/2016 Inactive prednisone 20 mg tablet RxNorm: 773599 1 Tablet(s) PO QD 08/10/2016 1 10/17/2015 Inactive doxycycline hyclate 100 mg capsule RxNorm: 1102117 1 Capsule(s) PO BID 08/10/2016 08/19/2016 Inactive Medrol (Dustin) 4 mg tablets in a dose pack RxNorm: 458735 Tablet(s) PO As Directed 07/31/2016 08/22/2016 Inactive Singulair 10 mg tablet RxNorm: 055379 TAKE ONE TABLET BY MOUTH JOSÉ Y 07/27/2016 07/18/2017 Inactive hydrocodone 10 mg-acetaminophen 325 mg tablet RxNorm: 863007 1-2 Tablet(s) QID as needed for pain MUST LAST 30 DAYS 07/26/2016 08/24/2016 Inactive (Response to an electronic controlled substance refill request - RxReferenceNumber: [id number]) alprazolam 0.5 mg tablet RxNorm: 223200 3 Tablet(s) PO QHS as needed for anxiety or sleep 07/26/2016 09/20/2016 Inactive clindamycin 300 mg capsule RxNorm: 900593 1 Capsule(s) PO TID 07/2007/29/2016 Inactive Diflucan 100 mg tablet RxNorm: 763694 1 Tablet(s) PO QD 07/20/2016 Inactive Levaquin 500 mg tablet RxNorm: 508560 1 Tablet(s) PO QD 07/17/2016 Inactive Levaquin 500 mg tablet RxNorm: 014843 1 Tablet(s) PO QD 07/10/2016 Inactive Levaquin 500 mg tablet RxNorm: 598183 1 Tablet(s) PO QD 07/10/2016 Inactive mupirocin 2 % topical ointment RxNorm: 343071 TOP Apply topically to affected areas twice daily 07/06/2016 09/18/2016 Inactive Singulair 10 mg tablet RxNorm: 226290 TAKE ONE TABLET BY MOUTH JOSÉ Y 06/21/2016 01/21/2019 Inactive alprazolam 0.5 mg tablet RxNorm: 371955 TAKE THREE TABL ETS BY MOUTH AT BEDTIME NEEDED FOR SLEEP OR STRESS 05/22/2016 06/20/2016 Inactive triamterene 75 mg-hydrochlorothiazide 50 mg tablet RxNorm: 3 16839 1 Tablet(s) PO QD 04/26/2016 10/21/2016 Inactive Premarin 1.25 mg tablet RxNorm: 495940 1-2 Tablet(s) PO QD 04/26/20 16 03/20/2017 Inactive Klor-Con 8 mEq tablet,extended release RxNorm: 712447 1 Tablet( s) PO BID 04/26/2016 10/19/2016 Inactive Celebrex 200 mg capsule RxNorm: 431111 1 Capsule(s) PO BID TAKE ONE CAPSULE BY MOUTH EVERY DAY 04/26/2016 10/19/2016 Inactive Lipitor 10 mg tablet RxNorm: 756880 1 Tablet(s) PO QHS 04/26/201605/2017 Inactive allopurinol 300 mg tablet RxNorm: 652199 1 Tablet(s) PO QD TAKE ONE TABLET BY MOUTH EVERY DAY 04/26/2016 10/19/2016 Inactive amlodipine 5 mg-benazepril 20 mg capsule RxNorm: 101225 1 Capsule(s) PO QHS replaces amlodopine 04/26/2016 10/19/2016 Inactive duloxetine 60 mg capsule,delayed release RxNorm: 846755 1 Capsu le(s) PO QD 04/26/2016 10/19/2016 Inactive Bystolic 10 mg tablet RxNorm: 159963 1 Tablet(s) PO QHS 04/26/2016 Inactive Singulair 10 mg tablet RxNorm: 341309 1 Tablet(s) PO QD TAKE ONE TABLET BY MOUTH DAILY 04/26/2016 06/20/2016 Inactive clonidine HCl 0.1 mg tablet RxNorm: 537575 1 Tablet(s) PO QID 04/2610/22/2016 Inactive hydrocodone 10 mg-acetaminophen 325 mg tablet RxNorm: 547962 1-2 Tablet(s) QID as needed for pain TAKE ONE TO TWO TABLETS BY MOUTH FOUR TIMES A DAY . MUST LAST 30 DAYS 03/31/2016 04/29/2016 Inactive (Response to an electronic controlled substance refill request - RxReferenceNumber: [id number]) Klor-Con 8 mEq tablet,extended release RxNorm: 826312 T FARRUKH ONE TABLET BY MOUTH TWICE A DAY 03/24/2016 09/29/2019 Inactive prednisone 20 mg tablet RxNorm: 619210 1 Tablet(s) PO QD 03/09/2016 0 03/08/2016 Inactive prednisone 20 mg tablet RxNorm: 066986 1 Tablet(s) PO QD 03/09/2016 0 03/13/2016 Inactive alprazolam 0.5 mg tablet RxNorm: 949559 3 Tablet(s) PO QHS as needed for sleep/stress 03/02/2016 01/21/2019 Inactive mupirocin 2 % topical ointment RxNorm: 080109 TOP twice daily to affected areas of face and neck 02/21/2016 04/25/2016 Inactive clonidine HCl 0.1 mg tablet RxNorm: 833444 TAKE ONE TAB LET BY MOUTH FOUR TIMES A DAY 02/15/2016 09/29/2019 Inactive clonidine HCl 0.1 mg tablet RxNorm: 851115 1 Tablet(s) PO QID 02/1404/25/2016 Inactive Premarin 1.25 mg tablet RxNorm: 376687 1-2 Tablet(s) PO QD 02/15/20 16 03/15/2016 Inactive Klor-Con 8 mEq tablet,extended release RxNorm: 019130 T FARRUKH ONE TABLET BY MOUTH TWICE A DAY 02/15/2016 03/15/2016 Inactive potassium chloride ER 20 mEq tablet,extended release(part/cr yst) RxNorm: 734338 2 Tablet(s) PO BID 02/15/2016 03/15/2016 Inactive Macrobid 100 mg capsule RxNorm: 681637 1 Capsule(s) PO BID 01/24/20 16 01/30/2016 Inactive prednisone 20 mg tablet RxNorm: 427988 Take 3tabs PO QD x 2 days, then 2 tabs PO QD x 2 days, then 1 tab PO QD x 2 days, then 1/2 tab PO QDy x 2 days 12/23/2015 04/25/2016 Inactive Klor-Con 8 mEq tablet,extended release RxNorm: 937454 T FARRUKH ONE TABLET BY MOUTH TWICE A DAY 12/20/2015 02/14/2016 Inactive alprazolam 1 mg tablet RxNorm: 835713 1 1/2 Tablet(s) PO QHS 201501/23/2016 Inactive nystatin 100,000 unit/gram topical cream RxNorm: 184441 APPLY TO AFFECTED AREA(S) TWO TIMES A DAY 11/30/2015 12/14/2015 Inactive Singulair 10 mg tablet RxNorm: 518794 TAKE ONE TABLET BY MOUTH JOSÉ Y 11/18/2015 04/25/2016 Inactive allopurinol 300 mg tablet RxNorm: 469488 1 Tablet(s) PO QD TAKE ONE TABLET BY MOUTH EVERY DAY 10/26/2015 04/22/2016 Inactive Singulair 10 mg tablet RxNorm: 422775 TAKE ONE TABLET BY MOUTH JOSÉ Y 10/26/2015 11/17/2015 Inactive duloxetine 60 mg capsule,delayed release RxNorm: 841536 1 Capsu le(s) PO QD 10/26/2015 04/22/2016 Inactive triamterene 75 mg-hydrochlorothiazide 50 mg tablet RxNorm: 3 12896 1 Tablet(s) PO QD 10/26/2015 11/14/2016 Inactive potassium chloride ER 20 mEq tablet,extended release(part/cr yst) RxNorm: 009675 2 Tablet(s) PO BID 10/26/2015 02/14/2016 Inactive Lipitor 10 mg tablet RxNorm: 640038 1 Tablet(s) PO QHS 10/26/2015 Inactive amlodipine 5 mg-benazepril 20 mg capsule RxNorm: 364937 1 Capsule(s) PO QHS replaces amlodopine 10/26/2015 04/22/2016 Inactive Bystolic 10 mg tablet RxNorm: 432134 1 Tablet(s) PO QHS 10/26/2015 Inactive amlodipine 5 mg-benazepril 20 mg capsule RxNorm: 536739 1 Capsule(s) PO QHS replaces amlodopine 10/06/2015 10/25/2015 Inactive amlodipine 5 mg tablet RxNorm: 978004 1 Tablet(s) PO QHS 09/30/2015 0 04/25/2016 Inactive metolazone 2.5 mg tablet RxNorm: 854266 TAKE ONE TABLET BY MOUTH DAILY NEEDED FOR EDEMA 09/30/2015 01/21/2019 Inactive duloxetine 60 mg capsule,delayed release RxNorm: 268205 1 Capsu le(s) PO QD 09/30/2015 10/25/2015 Inactive cephalexin 500 mg capsule RxNorm: 691656 1 Capsule(s) PO BID 201509/23/2015 Inactive mupirocin 2 % topical ointment RxNorm: 988387 TOP twice daily to affected areas of face and neck 09/14/2015 02/20/2016 Inactive baclofen 20 mg tablet RxNorm: 806700 1 Tablet(s) PO TID as needed for muscle spasm 09/01/2015 11/14/2016 Inactive clonidine HCl 0.1 mg tablet RxNorm: 085372 1 Tablet(s) PO QID 09/0102/14/2016 Inactive alprazolam 1 mg tablet RxNorm: 227194 1 1/2 Tablet(s) PO QHS 201409/09/2015 Inactive baclofen 20 mg tablet RxNorm: 095007 1 Tablet(s) PO TID as needed for muscle spasm 07/23/2015 09/01/2015 Inactive omeprazole 40 mg capsule,delayed release RxNorm: 203518 1 Capsu le(s) PO QD 07/23/2015 04/25/2016 Inactive alprazolam 1 mg tablet RxNorm: 808679 1 1/2 Tablet(s) PO QHS 201408/10/2015 Inactive Bystolic 10 mg tablet RxNorm: 044027 1 Tablet(s) PO BID 06/24/2015 Inactive allopurinol 300 mg tablet RxNorm: 094175 1 Tablet(s) PO QD TAKE ONE TABLET BY MOUTH EVERY DAY 06/23/2015 10/20/2015 Inactive alprazolam 1 mg tablet RxNorm: 760474 1 1/2 Tablet(s) PO QHS 201407/06/2015 Inactive clonidine HCl 0.1 mg tablet RxNorm: 739224 1 Tablet(s) PO QID 06/0209/01/2015 Inactive clonidine HCl 0.1 mg tablet RxNorm: 819973 1 Tablet(s) PO QID 06/0206/01/2015 Inactive Cymbalta 60 mg capsule,delayed release RxNorm: 749960 1 Capsule (s) PO QHS 06/02/2015 08/30/2015 Inactive Cymbalta 60 mg capsule,delayed release RxNorm: 403557 1 Capsule (s) PO QHS 06/02/2015 06/01/2015 Inactive clonidine HCl 0.1 mg tablet RxNorm: 472540 1 Tablet(s) PO TID 05/3106/01/2015 Inactive replaces 0.2mg dose metolazone 2.5 mg tablet RxNorm: 389219 TAKE ONE TABLET BY MOUTH DAILY NEEDED FOR EDEMA 05/21/2015 06/19/2015 Inactive Singulair 10 mg tablet RxNorm: 780953 TAKE ONE TABLET BY MOUTH JOSÉ Y 05/21/2015 10/17/2015 Inactive Cymbalta 30 mg capsule,delayed release RxNorm: 733327 1 Capsule (s) PO QHS 05/20/2015 11/14/2016 Inactive betamethasone valerate 0.1 % topical cream RxNorm: 433705 Appli cation TOP BID 05/10/2015 04/25/2016 Inactive Bactroban 2 % topical ointment RxNorm: 801456 Application TOP BID 0 05/10/2015 06/20/2015 Inactive baclofen 20 mg tablet RxNorm: 384264 1 Tablet(s) PO TID as needed 0 04/26/2015 07/23/2015 Inactive Lipitor 10 mg tablet RxNorm: 127663 1 Tablet(s) PO QHS 04/26/201508/2016 Inactive clonidine HCl 0.1 mg tablet RxNorm: 007121 1 Tablet(s) PO TID 04/2605/30/2015 Inactive replaces 0.2mg dose Klor-Con 8 mEq tablet,extended release RxNorm: 352672 1 Tablet( s) PO BID 04/26/2015 04/25/2016 Inactive metolazone 2.5 mg tablet RxNorm: 875390 1 Tablet(s) PO QD as ne eded for edema 04/26/2015 04/25/2015 Inactive triamterene 75 mg-hydrochlorothiazide 50 mg tablet RxNorm: 3 89161 1 Tablet(s) PO QD 04/26/2015 10/22/2015 Inactive Premarin 1.25 mg tablet RxNorm: 922301 1-2 Tablet(s) PO QD 04/26/20 15 10/22/2015 Inactive Bystolic 10 mg tablet RxNorm: 822809 1 Tablet(s) PO QAM TAKE ONE TABLET BY MOUTH EVERY MORNING 04/23/2015 06/23/2015 Inactive clonidine HCl 0.1 mg tablet RxNorm: 023750 1 Tablet(s) PO TID 03/2304/25/2015 Inactive replaces 0.2mg dose nystatin 100,000 unit/gram topical cream RxNorm: 497838 Applica tion TOP BID 03/23/2015 06/20/2015 Inactive baclofen 20 mg tablet RxNorm: 667460 1 Tablet(s) PO TID as needed 0 03/23/2015 04/25/2015 Inactive Premarin 1.25 mg tablet RxNorm: 963346 1-2 Tablet(s) PO QD 03/23/20 15 04/25/2015 Inactive Klor-Con 8 mEq tablet,extended release RxNorm: 907307 1 Tablet( s) PO BID 03/23/2015 04/25/2015 Inactive cefdinir 300 mg capsule RxNorm: 299044 2 Capsule(s) PO QD 03/16/2015 03/25/2015 Inactive baclofen 20 mg tablet RxNorm: 051163 1 Tablet(s) PO TID as needed 0 03/02/2015 03/22/2015 Inactive allopurinol 300 mg tablet RxNorm: 136260 1 Tablet(s) PO QD TAKE ONE TABLET BY MOUTH EVERY DAY 02/22/2015 05/22/2015 Inactive Klor-Con M20 mEq tablet,extended release RxNorm: 787874 2 Tablet(s) PO BID to use with lasix 02/22/2015 06/20/2015 Inactive clonidine HCl 0.1 mg tablet RxNorm: 226761 1 Tablet(s) PO TID 02/1903/22/2015 Inactive replaces 0.2mg dose Lipitor 10 mg tablet RxNorm: 309122 1 Tablet(s) PO QHS 01/20/201506/2015 Inactive Lipitor 10 mg tablet RxNorm: 776896 1 Tablet(s) PO QHS 01/20/2015 Inactive Singulair 10 mg tablet RxNorm: 782723 1 Tablet(s) PO QD TAKE ONE TABLET BY MOUTH EVERY DAY 11/20/2014 05/18/2015 Inactive Lipitor 10 mg tablet RxNorm: 722874 1 Tablet(s) PO QHS 11/20/201408/2015 Inactive allopurinol 300 mg tablet RxNorm: 880502 1 Tablet(s) PO QD TAKE ONE TABLET BY MOUTH EVERY DAY 11/20/2014 02/16/2015 Inactive Bystolic 10 mg tablet RxNorm: 916897 1 Tablet(s) PO QAM TAKE ONE TABLET BY MOUTH EVERY MORNING 11/20/2014 04/22/2015 Inactive Klor-Con 8 mEq tablet,extended release RxNorm: 909744 1 Tablet( s) PO BID 11/20/2014 02/17/2015 Inactive baclofen 20 mg tablet RxNorm: 493894 1 Tablet(s) PO TID as needed 0 11/20/2014 01/21/2019 Inactive baclofen 20 mg tablet RxNorm: 769481 1 Tablet(s) PO TID as needed 0 10/27/2014 11/19/2014 Inactive baclofen 20 mg tablet RxNorm: 831266 1 Tablet(s) PO TID as needed 0 10/26/2014 03/01/2015 Inactive allopurinol 300 mg tablet RxNorm: 958084 1 Tablet(s) PO QD TAKE ONE TABLET BY MOUTH EVERY DAY 10/26/2014 11/20/2014 Inactive Bystolic 10 mg tablet RxNorm: 415207 1 Tablet(s) PO QAM TAKE ONE TABLET BY MOUTH EVERY MORNING 10/26/2014 11/20/2014 Inactive clonidine HCl 0.1 mg tablet RxNorm: 676355 1 Tablet(s) PO TID 09/2805/27/2019 Inactive replaces 0.2mg dose clonidine HCl 0.1 mg tablet RxNorm: 634003 1 Tablet(s) PO TID 09/2802/18/2015 Inactive replaces 0.2mg dose baclofen 20 mg tablet RxNorm: 747216 1 Tablet(s) PO TID as needed 1 11/01/2013 08/30/2014 Inactive Lipitor 10 mg tablet RxNorm: 286360 1 Tablet(s) PO QHS 08/31/2014 Inactive baclofen 20 mg tablet RxNorm: 773520 1 Tablet(s) PO TID as needed 1 11/01/2013 10/26/2014 Inactive triamterene 75 mg-hydrochlorothiazide 50 mg tablet RxNorm: 3 24136 1 Tablet(s) PO QD 08/31/2014 02/26/2015 Inactive Klor-Con 8 mEq tablet,extended release RxNorm: 649127 1 Tablet( s) PO BID 08/31/2014 11/20/2014 Inactive baclofen 20 mg tablet RxNorm: 664223 1 Tablet(s) PO TID as needed 1 09/30/2013 10/25/2014 Inactive baclofen 20 mg tablet RxNorm: 051164 1 Tablet(s) PO TID as needed 1 09/30/2013 08/31/2014 Inactive omeprazole 40 mg capsule,delayed release RxNorm: 671020 1 Capsu le(s) PO QD 07/21/2014 07/23/2015 Inactive Flonase 50 mcg/actuation nasal spray,suspension RxNorm: 8963 23 1 [place] NASAL BID 07/15/2014 04/09/2017 Inactive hydrocodone 10 mg-acetaminophen 325 mg tablet RxNorm: 146350 1-2 Tablet(s) QID as needed for pain TAKE ONE TO TWO TABLETS BY MOUTH FOUR TIMES A DAY . MUST LAST 30 DAYS 06/30/2014 07/27/2014 Inactive (Response to an electronic controlled substance refill request - RxReferenceNumber: [id number]) baclofen 20 mg tablet RxNorm: 185588 1 Tablet(s) PO TID as needed 1 07/31/2014 Inactive Singulair 10 mg tablet RxNorm: 782682 1 Tablet(s) PO QD TAKE ONE TABLET BY MOUTH EVERY DAY 05/25/2014 11/20/2014 Inactive Bystolic 10 mg tablet RxNorm: 412635 TAKE ONE TABLET BY MOUTH E VERY MORNING 05/25/2014 09/21/2014 Inactive allopurinol 300 mg tablet RxNorm: 893606 1 Tablet(s) PO QD TAKE ONE TABLET BY MOUTH EVERY DAY 05/25/2014 10/21/2014 Inactive baclofen 20 mg tablet RxNorm: 922205 1 Tablet(s) PO TID as needed 0 05/25/2014 06/29/2014 Inactive allopurinol 300 mg tablet RxNorm: 952860 TAKE ONE TABLET BY LOPEZ TH EVERY DAY 05/25/2014 09/21/2014 Inactive Singulair 10 mg tablet RxNorm: 113962 1 Tablet(s) PO QD TAKE ONE TABLET BY MOUTH EVERY DAY 05/25/2014 05/24/2014 Inactive Bystolic 10 mg tablet RxNorm: 016875 1 Tablet(s) PO QAM TAKE ONE TABLET BY MOUTH EVERY MORNING 05/25/2014 10/21/2014 Inactive metolazone 2.5 mg tablet RxNorm: 405497 1 Tablet(s) PO QD as ne eded for edema 05/18/2014 04/25/2015 Inactive Lasix 40 mg tablet RxNorm: 256678 1 Tablet(s) PO QAM s hould take potassium supplementation with this medication 05/14/2014 05/17/2014 Inactive hydrocodone 10 mg-acetaminophen 325 mg tablet RxNorm: 267787 1-2 Tablet(s) QID as needed for pain TAKE ONE TO TWO TABLETS BY MOUTH FOUR TIMES A DAY . MUST LAST 30 DAYS 05/07/2014 06/05/2014 Inactive (Response to an electronic controlled substance refill request - RxReferenceNumber: [id number]) alprazolam 0.5 mg tablet RxNorm: 462235 TAKE ONE TABLET BY MOUTH TWICE A DAY , MUST LAST 30 DAYS 05/07/2014 05/22/2016 Inactive (Response to a n electronic controlled substance refill request - RxReferenceNumber: [id number]) diclofenac sodium 75 mg tablet,delayed release RxNorm: 10747 6 1 Tablet(s) PO BID for pain 04/24/2014 07/20/2014 Inactive Celebrex 200 mg capsule RxNorm: 864923 TAKE ONE CAPSULE BY MOUT H EVERY DAY 04/24/2014 07/20/2014 Inactive alprazolam 0.5 mg tablet RxNorm: 912121 TAKE ONE TABLET BY MOUTH TWICE A DAY , MUST LAST 30 DAYS 03/24/2014 04/22/2014 Inactive (Response to a n electronic controlled substance refill request - RxReferenceNumber: [id number]) diclofenac sodium 75 mg tablet,delayed release RxNorm: 07278 6 1 Tablet(s) PO BID for pain 03/24/2014 04/24/2014 Inactive clonidine HCl 0.1 mg tablet RxNorm: 849882 1 Tablet(s) PO TID 03/2409/28/2014 Inactive replaces 0.2mg dose Klor-Con 8 mEq tablet,extended release RxNorm: 789904 1 Tablet( s) PO BID 02/26/2014 08/31/2014 Inactive diclofenac sodium 75 mg tablet,delayed release RxNorm: 61528 6 1 Tablet(s) PO BID for pain 02/25/2014 03/24/2014 Inactive hydrocodone 10 mg-acetaminophen 325 mg tablet RxNorm: 438316 1-2 Tablet(s) QID as needed for pain TAKE ONE TO TWO TABLETS BY MOUTH FOUR TIMES A DAY . MUST LAST 30 DAYS 02/25/2014 03/26/2014 Inactive (Response to an electronic controlled substance refill request - RxReferenceNumber: [id number]) alprazolam 0.5 mg tablet RxNorm: 392930 Tablet(s) PO BI D as needed for anxiety TAKE ONE TABLET BY MOUTH TWICE A DAY , MUST LAST 30 DAYS 02/25/2014 Inactive (Response to an electronic controlled [place] bstance refill request - RxReferenceNumber: [id number]) [AttnRPh: Saving apply/adjudicate RxGRP:SG20 RxBIN:[id number] RxPCN:HT ID#:[id number]] alprazolam 0.5 mg tablet RxNorm: 190162 Tablet(s) TAKE ONE TABLET BY MOUTH TWICE A DAY , MUST LAST 30 DAYS 01/27/2014 02/24/2014 Inactive (Respo nse to an electronic controlled substance refill request - RxReferenceNumber: [id number]) [AttnRPh: Saving apply/adjudicate RxGRP:SG20 RxBIN:[id number] RxPCN:HT ID#:[id number]] hydrocodone 10 mg-acetaminophen 325 mg tablet RxNorm: 237542 1-2 Tablet(s) QID as needed for pain TAKE ONE TO TWO TABLETS BY MOUTH FOUR TIMES A DAY . MUST LAST 30 DAYS 01/27/2014 02/24/2014 Inactive (Response to an electronic controlled substance refill request - RxReferenceNumber: [id number]) alprazolam 0.5 mg tablet RxNorm: 052244 TAKE ONE TABLET BY MOUTH TWICE A DAY , MUST LAST 30 DAYS 01/27/2014 01/26/2014 Inactive (Response to a n electronic controlled substance refill request - RxReferenceNumber: [id number]) Premarin 1.25 mg tablet RxNorm: 224086 1-2 Tablet(s) PO QD 01/28/20 14 07/25/2014 Inactive alprazolam 0.5 mg tablet RxNorm: 893432 TAKE ONE TABLET BY MOUTH TWICE A DAY , MUST LAST 30 DAYS 01/27/2014 01/27/2014 Inactive (Response to a n electronic controlled substance refill request - RxReferenceNumber: [id number]) hydrocodone 10 mg-acetaminophen 325 mg tablet RxNorm: 284435 TAKE ONE TO TWO TABLETS BY MOUTH FOUR TIMES A DAY . MUST LAST 30 DAYS 01/27/20142013 Inactive (Response to an electronic controlled [place] bstance refill request - RxReferenceNumber: [id number]) Celebrex 200 mg capsule RxNorm: 536470 1 Capsule(s) PO QD TAKE ONE CAPSULE BY MOUTH EVERY DAY 12/29/2013 04/27/2014 Inactive hydrocodone 10 mg-acetaminophen 325 mg tablet RxNorm: 752081 1-2 Tablet(s) PO QID as needed for severe pain 12/29/2013 01/27/2014 Inactive allopurinol 300 mg tablet RxNorm: 378752 1 Tablet(s) PO QD TAKE ONE TABLET BY MOUTH EVERY DAY 12/29/2013 05/24/2014 Inactive alprazolam 0.5 mg tablet RxNorm: 444798 TAKE ONE TABLET BY MOUTH TWICE A DAY , MUST LAST 30 DAYS 12/29/2013 01/27/2014 Inactive (Response to a n electronic controlled substance refill request - RxReferenceNumber: [id number]) Celebrex 200 mg capsule RxNorm: 050711 1 Capsule(s) PO QD TAKE ONE CAPSULE BY MOUTH EVERY DAY 12/29/2013 12/29/2013 Inactive Bystolic 10 mg tablet RxNorm: 636394 1 Tablet(s) PO QAM TAKE ONE TABLET BY MOUTH EVERY MORNING 12/29/2013 05/24/2014 Inactive Bystolic 10 mg tablet RxNorm: 211559 1 Tablet(s) PO QAM TAKE ONE TABLET BY MOUTH EVERY MORNING 12/29/2013 12/29/2013 Inactive Singulair 10 mg tablet RxNorm: 486084 1 Tablet(s) PO QD TAKE ONE TABLET BY MOUTH EVERY DAY 12/29/2013 05/25/2014 Inactive hydrocodone 10 mg-acetaminophen 325 mg tablet RxNorm: 808626 TAKE ONE TO TWO TABLETS BY MOUTH FOUR TIMES A DAY . MUST LAST 30 DAYS 12/29/20132013 Inactive (Response to an electronic controlled [place] bstance refill request - RxReferenceNumber: [id number]) Trazadone 75mg Tablet RxNorm: 1 Tablet(s) PO QHS as needed 03/23/2014 Inactive Trazadone 75mg Tablet RxNorm: 1 Tablet(s) PO QHS 12/24/20132014 Inactive Soma 350 mg tablet RxNorm: 994304 Tablet(s) PO TAKE ON E TABLET BY MOUTH THREE TIMES A DAY NEEDED FOR MUSCLE SPASMS. THIS MUST LAST 30 DAYS BETWEEN REFILLS. 12/10/2013 12/22/2013 Inactive (Appended: Cont rolled substance eRx refill - RxReferenceNumber: [id number]) diclofenac sodium 75 mg tablet,delayed release RxNorm: 60916 6 1 Tablet(s) PO BID for pain 12/10/2013 02/24/2014 Inactive allopurinol 300 mg tablet RxNorm: 775621 1 Tablet(s) PO QD 11/20/19 14 12/29/2013 Inactive alprazolam 0.5 mg tablet RxNorm: 719009 2 Tablet(s) PO BID 11/13/19 14 12/29/2013 Inactive prn clonidine 0.1 mg tablet RxNorm: 681695 1 Tablet(s) PO TID 11/12/2013 02/09/2014 Inactive replaces 0.2mg dose Klor-Con M20 mEq tablet,extended release RxNorm: 012447 2 Tablet(s) PO BID to use with lasix 11/12/2013 05/10/2014 Inactive Singulair 10 mg tablet RxNorm: 491917 1 Tablet(s) PO QD 11/12/2013 Inactive hydrocodone 10 mg-acetaminophen 325 mg tablet RxNorm: 549993 1-2 Tablet(s) PO QID as needed for severe pain 11/12/2013 12/28/2013 Inactive Bystolic 10 mg tablet RxNorm: 787631 1 Tablet(s) PO QAM 11/12/2013 Inactive Soma 350 mg tablet RxNorm: 582221 Tablet(s) PO TAKE ON E TABLET BY MOUTH THREE TIMES A DAY NEEDED FOR MUSCLE SPASMS. THIS MUST LAST 30 DAYS BETWEEN REFILLS. 10/13/2013 12/10/2013 Inactive (Appended: Cont rolled substance eRx refill - RxReferenceNumber: [id number]) hydrocodone 10 mg-acetaminophen 325 mg tablet RxNorm: 149842 1-2 Tablet(s) PO QID as needed for severe pain 10/03/2013 11/11/2013 Inactive diclofenac sodium 75 mg tablet,delayed release RxNorm: 78760 8 1 Tablet(s) PO BID for pain 09/11/2013 12/10/2013 Inactive alprazolam 0.5 mg tablet RxNorm: 433220 1 Tablet(s) PO BID May refill on 04/26/13 09/01/2013 10/30/2013 Inactive prn hydrocodone 10 mg-acetaminophen 325 mg tablet RxNorm: 161606 1-2 Tablet(s) PO QID as needed for severe pain 09/01/2013 10/02/2013 Inactive triamterene 75 mg-hydrochlorothiazide 50 mg tablet RxNorm: 3 17397 1 Tablet(s) PO QD 08/04/2013 08/31/2014 Inactive cyclobenzaprine 10 mg tablet RxNorm: 452689 1 Tablet(s) PO TID prn spasm 08/04/2013 08/13/2013 Inactive clonidine 0.1 mg tablet RxNorm: 209970 1 Tablet(s) PO TID 08/04/2013 11/11/2013 Inactive replaces 0.2mg dose cyclobenzaprine 10 mg tablet RxNorm: 366445 1 Tablet(s) PO TID prn spasm 07/23/2013 08/01/2013 Inactive hydrocodone 10 mg-acetaminophen 325 mg tablet RxNorm: 270918 2 1-2 Tablet(s) PO QID as needed for severe pain 06/09/2013 08/07/2013 Inactive Singulair 10 mg tablet RxNorm: 948661 1 Tablet(s) PO QD 05/29/2013 Inactive Klor-Con 8 mEq tablet,extended release RxNorm: 423874 1 Tablet( s) PO BID 05/29/2013 02/26/2014 Inactive allopurinol 300 mg tablet RxNorm: 950434 1 Tablet(s) PO QD 05/29/20 13 11/19/2013 Inactive Bystolic 10 mg tablet RxNorm: 814675 1 Tablet(s) PO QAM take one daily in the morning. 05/29/2013 11/11/2013 Inactive scopolamine 1.5 mg 72 hr Transderm Patch RxNorm: 812459 Application TD Q72H for motion sickness 05/26/2013 07/22/2013 Inactive Soma 350 mg tablet RxNorm: 382123 1 Tablet(s) PO TID as needed for spasm 05/19/2013 10/13/2013 Inactive diclofenac sodium 75 mg tablet,delayed release RxNorm: 26341 8 1 Tablet(s) PO BID for pain 05/14/2013 07/22/2013 Inactive allopurinol 300 mg tablet RxNorm: 189659 1 Tablet(s) PO QD 04/25/20 13 05/28/2013 Inactive alprazolam 0.5 mg tablet RxNorm: 425688 1 Tablet(s) PO BID May refill on 04/26/13 04/25/2013 06/23/2013 Inactive prn Celebrex 200 mg capsule RxNorm: 984257 1 Capsule(s) PO QD 04/16/2013 12/29/2013 Inactive alprazolam 0.5 mg tablet RxNorm: 607662 1 Tablet(s) PO BID May refill on 04/26/13 04/16/2013 04/24/2013 Inactive prn Soma 350 mg tablet RxNorm: 735613 1 Tablet(s) PO TID as needed for spasm 04/16/2013 No Stop Date Active Lasix 40 mg tablet RxNorm: 691616 1 Tablet(s) PO QAM s hould take potassium supplementation with this medication 04/16/2013 06/14/2013 Inactive clonidine 0.1 mg tablet RxNorm: 349858 1 Tablet(s) PO TID 04/16/2013 08/03/2013 Inactive replaces 0.2mg dose prednisone 20 mg tablet RxNorm: 518087 1 Tablet(s) PO BID 04/16/2013 04/20/2013 Inactive diclofenac sodium 75 mg tablet,delayed release RxNorm: 93512 8 1 Tablet(s) PO BID for pain 04/14/2013 05/13/2013 Inactive hydrocodone 10 mg-acetaminophen 325 mg tablet RxNorm: 483692 2 1-2 Tablet(s) PO QID as needed for severe pain 04/14/2013 No Stop Date Active Lasix 40 mg tablet RxNorm: 536494 1 Tablet(s) PO QAM s hould take potassium supplementation with this medication 03/31/2013 04/15/2013 Inactive Celebrex 200 mg capsule RxNorm: 168580 1 Capsule(s) PO QD 03/31/2013 04/15/2013 Inactive alprazolam 0.5 mg tablet RxNorm: 016786 1 Tablet(s) PO BID 03/28/20 13 04/15/2013 Inactive prn hydrocodone 10 mg-acetaminophen 325 mg tablet RxNorm: 510100 2 1-2 Tablet(s) PO QID as needed for severe pain 03/10/2013 No Stop Date Active metformin ER 500 mg 24 hr tablet,extended release RxNorm: 86 1018 1 Tablet(s) PO QD 03/06/2013 07/22/2013 Inactive clindamycin 300 mg capsule RxNorm: 363609 2 Capsule(s) PO TID 03/0503/14/2013 Inactive Zaroxolyn 2.5 mg tablet RxNorm: 374079 1 Tablet(s) PO QAM 03/05/2013 05/19/2015 Inactive amlodipine 10 mg tablet RxNorm: 923157 1 Tablet(s) PO QD 03/03/2013 0 05/25/2013 Inactive Norvasc 10 mg tablet RxNorm: 331067 1 Tablet(s) PO QD 02/28/201307/11 Inactive Celebrex 200 mg capsule RxNorm: 424051 1 Capsule(s) PO QD 02/28/2013 03/30/2013 Inactive diclofenac sodium 75 mg tablet,delayed release RxNorm: 75382 8 1 Tablet(s) PO BID for pain 02/14/2013 03/15/2013 Inactive Soma 350 mg tablet RxNorm: 390461 1 Tablet(s) PO TID as needed for spasm 02/14/2013 No Stop Date Active hydrocodone 10 mg-acetaminophen 325 mg tablet RxNorm: 136078 2 1-2 Tablet(s) PO QID as needed for severe pain 02/14/2013 No Stop Date Active Norvasc 10 mg tablet RxNorm: 251624 1 Tablet(s) PO QD 02/10/201302/09 Inactive Celebrex 200 mg capsule RxNorm: 105521 1 Capsule(s) PO QD 01/27/2013 01/26/2013 Inactive Premarin 1.25 mg tablet RxNorm: 157552 1-2 Tablet(s) PO QD 01/28/20 13 06/25/2013 Inactive alprazolam 0.5 mg tablet RxNorm: 586077 1 Tablet(s) PO BID 01/28/20 13 02/25/2013 Inactive prn amlodipine 5 mg tablet RxNorm: 705309 1 Tablet(s) PO QD 01/27/2013 Inactive Celebrex 200 mg capsule RxNorm: 272617 1 Capsule(s) PO QD 01/27/2013 02/27/2013 Inactive gabapentin 600 mg tablet RxNorm: 503409 1 Tablet(s) PO QHS 01/16/20 13 07/22/2013 Inactive Soma 350 mg tablet RxNorm: 352567 1 Tablet(s) PO TID as needed for spasm 01/15/2013 No Stop Date Active hydrocodone 10 mg-acetaminophen 325 mg tablet RxNorm: 331090 2 1-2 Tablet(s) PO QID as needed for severe pain 01/15/2013 No Stop Date Active Soma 350 mg tablet RxNorm: 625696 1 Tablet(s) PO TID as needed for spasm 01/13/2013 No Stop Date Active alprazolam 0.5 mg tablet RxNorm: 559319 1 Tablet(s) PO BID 12/31/19 13 01/26/2013 Inactive prn diclofenac sodium 75 mg tablet,delayed release RxNorm: 58021 8 1 Tablet(s) PO BID for pain 12/09/2012 01/07/2013 Inactive gabapentin 600 mg tablet RxNorm: 322742 1 Tablet(s) PO QHS 12/10/19 13 01/07/2013 Inactive hydrocodone 10 mg-acetaminophen 325 mg tablet RxNorm: 002920 2 1-2 Tablet(s) PO QID as needed for severe pain 12/02/2012 No Stop Date Active Levaquin 750 mg tablet RxNorm: 791358 1 Tablet(s) PO QD 11/21/2012 Inactive Singulair 10 mg tablet RxNorm: 193371 1 Tablet(s) PO QD 11/11/2012 Inactive clonidine 0.2 mg tablet RxNorm: 183462 1 Tablet(s) PO TID 11/11/2012 04/15/2013 Inactive alprazolam 0.5 mg tablet RxNorm: 557728 1 Tablet(s) PO BID 11/12/19 13 12/10/2012 Inactive prn Klor-Con 8 mEq tablet,extended release RxNorm: 082647 1 Tablet( s) PO BID 11/11/2012 03/04/2013 Inactive hydrocodone 10 mg-acetaminophen 325 mg tablet RxNorm: 975594 2 1-2 Tablet(s) PO QID as needed for severe pain 11/06/2012 No Stop Date Active alprazolam 0.5 mg tablet RxNorm: 455090 1 Tablet(s) PO BID 10/15/19 13 11/10/2012 Inactive prn hydrocodone-acetaminophen 10 mg-325 mg tablet RxNorm: 378418 2 1-2 Tablet(s) PO QID as needed for severe pain 10/10/2012 10/09/2012 Inactive allopurinol 300 mg tablet RxNorm: 921163 1 Tablet(s) PO QD 09/20/19 13 12/18/2012 Inactive alprazolam 0.5 mg tablet RxNorm: 636255 1 Tablet(s) PO BID 09/17/19 13 10/14/2012 Inactive prn hydrocodone-acetaminophen 10 mg-325 mg tablet RxNorm: 188825 2 1-2 Tablet(s) PO QID as needed for severe pain 08/22/2012 08/21/2012 Inactive Norvasc 10 mg tablet RxNorm: 983643 1 Tablet(s) PO QD 08/12/201201/10 Inactive Premarin 1.25 mg tablet RxNorm: 311967 1-2 Tablet(s) PO QD 07/30/2012/26/2012 Inactive alprazolam 0.5 mg tablet RxNorm: 898032 1 Tablet(s) PO BID 07/29/2008/27/2012 Inactive prn Klor-Con 8 mEq tablet,extended release RxNorm: 455030 1 Tablet( s) PO BID 07/29/2012 11/10/2012 Inactive hydrocodone-acetaminophen 10 mg-325 mg tablet RxNorm: 410077 2 1-2 Tablet(s) PO QID as needed for severe pain 07/29/2012 No Stop Date Active Premarin 1.25 mg tablet RxNorm: 654746 1-2 Tablet(s) PO QD 07/29/2007/29/2012 Inactive clonidine 0.2 mg tablet RxNorm: 379541 1 Tablet(s) PO TID 07/29/2012 10/28/2012 Inactive ketorolac 10 mg tablet RxNorm: 195748 1 Tablet(s) PO QID prn he adache 07/18/2012 No Stop Date Active hydrocodone-acetaminophen 10 mg-325 mg tablet RxNorm: 921029 2 1-2 Tablet(s) PO QID as needed for severe pain 07/03/2012 No Stop Date Active amlodipine 5 mg tablet RxNorm: 438328 1 Tablet(s) PO QD 07/02/2012 Inactive allopurinol 300 mg tablet RxNorm: 038140 1 Tablet(s) PO QD 07/02/20 12 09/19/2012 Inactive Celebrex 200 mg capsule RxNorm: 809840 1 Capsule(s) PO QD for j oint pain 06/26/2012 10/23/2012 Inactive diclofenac sodium 75 mg tablet,delayed release RxNorm: 38135 8 1 Tablet(s) PO BID for pain 06/19/2012 09/16/2012 Inactive hydrocodone-acetaminophen 10 mg-325 mg tablet RxNorm: 220529 2 1-2 Tablet(s) PO QID as needed for severe pain 06/10/2012 No Stop Date Active alprazolam 0.5 mg tablet RxNorm: 037422 1 Tablet(s) PO BID 06/03/20 12 07/02/2012 Inactive prn ketorolac 10 mg tablet RxNorm: 940294 1 Tablet(s) PO Q8H 05/27/2012 0 01/21/2019 Inactive as needed for headache hydrocodone-acetaminophen 10 mg-325 mg tablet RxNorm: 533054 2 1-2 Tablet(s) PO QID as needed for severe pain 05/15/2012 No Stop Date Active allopurinol 300 mg tablet RxNorm: 192853 1 Tablet(s) PO QD 05/14/20 12 06/12/2012 Inactive allopurinol 300 mg tablet RxNorm: 303977 1 Tablet(s) PO QD 05/14/20 12 05/13/2012 Inactive amlodipine 5 mg tablet RxNorm: 165976 1 Tablet(s) PO QD 05/01/2012 Inactive amlodipine 5 mg Tab RxNorm: 934183 1 Tablet(s) PO QD 05/01/201204/30 Inactive Celebrex 200 mg capsule RxNorm: 731194 1 Capsule(s) PO QD for j oint pain 05/01/2012 06/25/2012 Inactive Singulair 10 mg tablet RxNorm: 268204 1 Tablet(s) PO QD 05/01/2012 Inactive alprazolam 0.5 mg tablet RxNorm: 573396 1 Tablet(s) PO BID 05/01/20 12 05/30/2012 Inactive prn Celebrex 200 mg Cap RxNorm: 811738 1 Capsule(s) PO QD for joint radu n 05/01/2012 04/30/2012 Inactive hydrocodone-acetaminophen 10 mg-325 mg tablet RxNorm: 398348 2 1-2 Tablet(s) PO QID as needed for severe pain 04/19/2012 No Stop Date Active Lasix 40 mg tablet RxNorm: 762845 1 Tablet(s) PO QAM s hould take potassium supplementation with this medication 04/05/2012 06/03/2012 Inactive alprazolam 0.5 mg Tab RxNorm: 957904 1 Tablet(s) PO BID 04/05/2012 Inactive prn hydrocodone-acetaminophen 10 mg-325 mg Tab RxNorm: 9231760 1-2 Tablet(s) PO QID as needed for severe pain 03/25/2012 03/24/2012 Inactive clonidine 0.2 mg Tab RxNorm: 371275 1 Tablet(s) PO TID 03/08/2012 Inactive alprazolam 0.5 mg Tab RxNorm: 046248 1 Tablet(s) PO BID 03/08/2012 Inactive prn Soma 350 mg tablet RxNorm: 452070 1 Tablet(s) PO TID for spasm 02/0903/18/2012 Inactive clonidine 0.2 mg tablet RxNorm: 462053 1 Tablet(s) PO TID 03/08/2012 07/28/2012 Inactive Celebrex 200 mg Cap RxNorm: 410198 1 Capsule(s) PO QD for joint radu n 03/01/2012 04/29/2012 Inactive amlodipine 5 mg Tab RxNorm: 565786 1 Tablet(s) PO QD 02/26/201202/24 Inactive amlodipine 5 mg Tab RxNorm: 527132 1 Tablet(s) PO QD 02/26/201204/25 Inactive Bactroban 2 % Ointment RxNorm: 601933 Application TOP QID to sores 02/23/2012 No Stop Date Active amlodipine 2.5 mg tablet RxNorm: 257028 1 Tablet(s) PO QHS 02/20/20 12 02/25/2012 Inactive doxycycline hyclate 100 mg Cap RxNorm: 1966547 1 Capsule(s) PO BID 02/20/2012 02/29/2012 Inactive hydrocodone-acetaminophen 10 mg-325 mg Tab RxNorm: 1817329 1-2 T ablet(s) PO QID 02/08/2012 No Stop Date Active alprazolam 0.5 mg Tab RxNorm: 396463 1 Tablet(s) PO BID 02/08/2012 Inactive prn Singulair 10 mg Tab RxNorm: 720968 1 Tablet(s) PO QD 02/08/201204/30 Inactive Soma 350 mg Tab RxNorm: 689640 1 Tablet(s) PO TID for spasm 012 03/07/2012 Inactive Soma 350 mg Tab RxNorm: 397024 1 Tablet(s) PO TID for spasm 012 02/05/2012 Inactive diclofenac sodium 75 mg tablet,delayed release RxNorm: 38735 8 1 Tablet(s) PO BID for pain 02/01/2012 03/18/2012 Inactive Celebrex 200 mg Cap RxNorm: 579156 1 Capsule(s) PO QD for joint radu n 01/30/2012 02/28/2012 Inactive Lasix 40 mg Tab RxNorm: 271192 1 Tablet(s) PO QAM 01/24/2012 03/18/20 12 Inactive potassium chloride ER 20 mEq tablet,extended release(part/cr yst) RxNorm: 061980 2 Tablet(s) PO BID 01/24/2012 02/22/2012 Inactive alprazolam 0.5 mg Tab RxNorm: 824817 1 Tablet(s) PO BID 01/11/2012 Inactive prn hydrocodone-acetaminophen 10 mg-325 mg Tab RxNorm: 3351809 1-2 T ablet(s) PO QID 01/11/2012 No Stop Date Active Ambien 10 mg Tab RxNorm: 897325 1 Tablet(s) PO QHS 01/11/2012 012 Inactive Klor-Con 8 mEq Tab RxNorm: 350348 1 Tablet(s) PO BID 01/11/201201/22 Inactive diclofenac sodium 75 mg Tab, Delayed Release RxNorm: 543019 1 Tablet(s) PO BID for pain 01/10/2012 01/31/2012 Inactive Ambien 10 mg Tab RxNorm: 966089 1 Tablet(s) PO QHS 12/11/2011 012 Inactive alprazolam 0.5 mg Tab RxNorm: 057630 1 Tablet(s) PO BID 12/11/2011 Inactive prn hydrocodone 10 mg-acetaminophen 325 mg tablet RxNorm: 352869 1-2 Tablet(s) PO TID 11/28/2011 No Stop Date Active as needed for pa in - Previous quantity #240, will start dosing for #180 in April 2011 per Doctor Td. Ambien 10 mg Tab RxNorm: 175892 1 Tablet(s) PO QHS 11/09/2011 012 Inactive alprazolam 0.5 mg Tab RxNorm: 324371 1 Tablet(s) PO BID 11/09/2011 Inactive prn hydrocodone-acetaminophen 10 mg-325 mg Tab RxNorm: 1244184 1-2 T ablet(s) PO TID 11/06/2011 No Stop Date Active as needed for pain - Previous quantity #240, will start dosing for #180 in April 2011 per Doctor Td. Singulair 10 mg Tab RxNorm: 260336 1 Tablet(s) PO QD 10/13/201110/12 Inactive Singulair 10 mg Tab RxNorm: 275283 1 Tablet(s) PO QD 10/13/201102/06 Inactive hydrocodone-acetaminophen 10 mg-325 mg Tab RxNorm: 6330126 1-2 T ablet(s) PO TID 10/10/2011 10/09/2011 Inactive as needed for pain - Previous quantity #240, will start dosing for #180 in April 2011 per Doctor Td. hydrocodone-acetaminophen 10 mg-325 mg Tab RxNorm: 3231091 1-2 T ablet(s) PO TID 10/09/2011 No Stop Date Active as needed for pain - Previous quantity #240, will start dosing for #180 in April 2011 per Doctor Td. Klor-Con 8 mEq Tab RxNorm: 326231 1 Tablet(s) PO BID 10/02/201101/09 Inactive triamterene 75 mg-hydrochlorothiazide 50 mg tablet RxNorm: 3 11160 1 Tablet(s) PO QD 09/14/2011 03/06/2013 Inactive Ambien 10 mg Tab RxNorm: 229291 1 Tablet(s) PO QHS 09/14/2011 012 Inactive hydrocodone-acetaminophen 10 mg-325 mg Tab RxNorm: 2420985 1-2 T ablet(s) PO TID 09/14/2011 No Stop Date Active as needed for pain - Previous quantity #240, will start dosing for #180 in April 2011 per Doctor Td. alprazolam 0.5 mg Tab RxNorm: 283827 1 Tablet(s) PO BID 09/14/2011 Inactive prn Zithromax 500 mg Tab RxNorm: 530665 1 Tablet(s) PO QD 09/13/201109/10 Inactive prednisone 20 mg Tab RxNorm: 376747 1 Tablet(s) PO BID 08/31/2011 Inactive Ambien 10 mg Tab RxNorm: 551044 1 Tablet(s) PO QHS 08/17/2011 011 Inactive hydrocodone-acetaminophen 10 mg-325 mg Tab RxNorm: 3898242 1-2 T ablet(s) PO TID 08/17/2011 No Stop Date Active as needed for pain - Previous quantity #240, will start dosing for #180 in April 2011 per Doctor Td. clonidine 0.2 mg Tab RxNorm: 390707 1 Tablet(s) PO TID 08/17/201112/2011 Inactive Ambien 10 mg Tab RxNorm: 374325 1 Tablet(s) PO QHS 08/17/2011 019 Inactive alprazolam 0.5 mg Tab RxNorm: 733849 1 Tablet(s) PO BID 08/17/2011 Inactive prn hydrocodone-acetaminophen 10 mg-325 mg Tab RxNorm: 9463427 1-2 T ablet(s) PO TID 08/17/2011 08/16/2011 Inactive as needed for pain - Previous quantity #240, will start dosing for #180 in April 2011 per Doctor Td. Singulair 10 mg Tab RxNorm: 037505 1 Tablet(s) PO QD 08/17/201108/16 Inactive Klor-Con 8 mEq Tab RxNorm: 581442 1 Tablet(s) PO QD 08/17/20112011 Inactive alprazolam 0.5 mg Tab RxNorm: 377367 1 Tablet(s) PO BID 07/20/2011 Inactive prn Ambien 10 mg Tab RxNorm: 494416 1 Tablet(s) PO QHS 07/20/2011 012 Inactive Singulair 10 mg Tab RxNorm: 945021 1 Tablet(s) PO QD 07/20/201107/19 Inactive Premarin 1.25 mg tablet RxNorm: 725897 2 Tablet(s) PO QD 07/20/2011 0 01/21/2019 Inactive Premarin 1.25 mg tablet RxNorm: 799096 1-2 Tablet(s) PO QD 07/20/20 11 12/16/2011 Inactive Premarin 1.25 mg Tab RxNorm: 486805 1-2 Tablet(s) PO QD 07/06/2011 Inactive alprazolam 0.5 mg Tab RxNorm: 508825 1 Tablet(s) PO BID 06/22/2011 Inactive prn alprazolam 0.5 mg Tab RxNorm: 354994 1 Tablet(s) PO BID 06/22/2011 Inactive prn Premarin 1.25 mg Tab RxNorm: 230615 1 Tablet(s) PO QD m ay do 90 day fill if desired 06/22/2011 07/05/2011 Inactive hydrocodone-acetaminophen 10 mg-325 mg Tab RxNorm: 2938032 1-2 T ablet(s) PO TID 06/22/2011 No Stop Date Active as needed for pain - Previous quantity #240, will start dosing for #180 in April 2011 per Doctor Td. clonidine 0.2 mg Tab RxNorm: 225247 1 Tablet(s) PO TID 05/25/201103/2011 Inactive triamterene-hydrochlorothiazide 75 mg-50 mg Tab RxNorm: 3108 18 1 Tablet(s) PO QD 05/25/2011 09/13/2011 Inactive alprazolam 0.5 mg Tab RxNorm: 887036 1 Tablet(s) PO BID 05/25/2011 Inactive prn hydrocodone-acetaminophen 10 mg-325 mg Tab RxNorm: 7005059 1-2 T ablet(s) PO TID 05/25/2011 No Stop Date Active as needed for pain - Previous quantity #240, will start dosing for #180 in April 2011 per Doctor Td. Robaxin-750 750 mg Tab RxNorm: 871708 2 Tablet(s) PO QHS 05/22/2011 Inactive prn spasm hydrocodone-acetaminophen 10 mg-325 mg Tab RxNorm: 3923043 1-2 T ablet(s) PO TID 04/26/2011 No Stop Date Active as needed for pain - Previous quantity #240, will start dosing for #180 in April 2011 per Doctor Td. alprazolam 0.5 mg Tab RxNorm: 529269 1 Tablet(s) PO BID 04/25/2011 Inactive prn Klor-Con 8 mEq Tab RxNorm: 930188 1 Tablet(s) PO QD 03/30/20112010 Inactive Klor-Con 8 mEq Tab RxNorm: 773519 1 Tablet(s) PO QD 03/29/20112010 Inactive hydrocodone-acetaminophen 10 mg-325 mg Tab RxNorm: 6504798 1-2 T ablet(s) PO TID 03/20/2011 04/25/2011 Inactive as needed for pain - Previous quantity #240, will start dosing for #180 in April 2011 per Doctor Td. alprazolam 0.5 mg Tab RxNorm: 583428 1 Tablet(s) PO BID prn 011 03/30/2011 Inactive Ambien 10 mg Tab RxNorm: 046785 1 Tablet(s) PO QHS 03/01/2011 011 Inactive cyclobenzaprine 10 mg Tab RxNorm: 827495 1 Tablet(s) PO TID 011 03/18/2012 Inactive cyclobenzaprine 10 mg Tab RxNorm: 387238 1 Tablet(s) PO TID 011 01/08/2011 Inactive cyclobenzaprine 10 mg Tab RxNorm: 885284 1 Tablet(s) PO TID 011 12/20/2010 Inactive terbinafine 250 mg Tab RxNorm: 507936 1 Tablet(s) PO QD 12/12/2010 Inactive triamterene-hydrochlorothiazide 75 mg-50 mg Tab RxNorm: 3108 18 1 Tablet(s) PO QD 12/07/2010 06/04/2011 Inactive Klor-Con 8 8 mEq Tab RxNorm: 530816 1 Tablet(s) PO QD 12/07/201001/08 Inactive Premarin 1.25 mg Tab RxNorm: 214215 2 Tablet(s) PO QD 12/07/201001/08 Inactive clonidine 0.2 mg Tab RxNorm: 879491 1 Tablet(s) PO TID 12/07/2010 Inactive hydrocodone-acetaminophen 7.5 mg-650 mg Tab RxNorm: 526652 1 Ta blet(s) PO Q4H 12/05/2010 01/21/2019 Inactive hydrocodone-acetaminophen 7.5 mg-650 mg Tab RxNorm: 345264 1 Ta blet(s) PO Q4H 10/26/2010 11/14/2010 Inactive hydrocodone-acetaminophen 7.5 mg-650 mg Tab RxNorm: 216602 1 Ta blet(s) PO Q4H 10/13/2010 10/25/2010 Inactive hydrocodone-acetaminophen 7.5 mg-650 mg Tab RxNorm: 610665 1 Ta blet(s) PO Q4H 09/15/2010 09/12/2010 Inactive alprazolam 0.5 mg Tab RxNorm: 267736 1 Tablet(s) PO BID prn 011 09/12/2010 Inactive terbinafine 250 mg Tab RxNorm: 251541 1 Tablet(s) PO QD 09/05/2010 Inactive hydrocodone-acetaminophen 7.5 mg-650 mg Tab RxNorm: 012959 1 Ta blet(s) PO Q4H 08/29/2010 09/17/2010 Inactive alprazolam 0.5 mg Tab RxNorm: 396728 1 Tablet(s) PO BID prn 010 09/27/2010 Inactive alprazolam 0.5 mg Tab RxNorm: 375016 1 Tablet(s) PO BID prn 010 09/06/2010 Inactive Klor-Con 8 mEq Tab RxNorm: 037407 1 Tablet(s) PO QD 08/08/20102010 Inactive hydrocodone-acetaminophen 7.5 mg-650 mg Tab RxNorm: 781975 1 Ta blet(s) PO Q4H 08/08/2010 08/27/2010 Inactive Ambien 10 mg Tab RxNorm: 078535 1 Tablet(s) PO QHS 08/08/2010 Inactive clonidine 0.2 mg Tab RxNorm: 306369 1 Tablet(s) PO TID 08/08/2010 Inactive Premarin 1.25 mg Tab RxNorm: 481246 2 Tablet(s) PO QD 08/08/201009/12 Inactive Ambien 10 mg Tab RxNorm: 257683 1 Tablet(s) PO QHS 07/18/2010 010 Inactive alprazolam 0.5 mg Tab RxNorm: 595375 1 Tablet(s) PO BID prn 010 08/07/2010 Inactive hydrocodone-acetaminophen 7.5 mg-650 mg Tab RxNorm: 640515 1 Ta blet(s) PO Q4H 07/12/2010 07/31/2010 Inactive clonidine 0.2 mg Tab RxNorm: 873316 1 Tablet(s) PO TID 06/20/2010 Inactive terbinafine 250 mg Tab RxNorm: 740142 1 Tablet(s) PO QD 05/24/2010 Inactive Clonidine 0.2 mg Tab RxNorm: 113072 1 Tablet(s) PO TID 05/24/201006/2010 Inactive Ambien 10 mg Tab RxNorm: 750548 1 Tablet(s) PO QHS 05/24/2010 010 Inactive alprazolam 0.5 mg Tab RxNorm: 606499 1 Tablet(s) PO BID 05/24/2010 Inactive Klor-Con 8 mEq Tab RxNorm: 461123 1 Tablet(s) PO QD 05/24/20102009 Inactive alprazolam 0.5 mg Tab RxNorm: 549443 2 Tablet(s) PO QD prn 05/24/20 10 07/17/2010 Inactive triamterene-hydrochlorothiazide 75 mg-50 mg Tab RxNorm: 3108 18 1 Tablet(s) PO QD 05/24/2010 11/19/2010 Inactive Ambien 10 mg Tab RxNorm: 166115 1 Tablet(s) PO QHS 05/23/2010 010 Inactive Alprazolam 0.5 mg Tab RxNorm: 459416 2 Tablet(s) PO QD prn 05/23/20 10 05/23/2010 Inactive Premarin 1.25 mg Tab RxNorm: 475469 2 Tablet(s) PO QD 05/19/201007/12 Inactive Hydrocodone-Acetaminophen 7.5 mg-650 mg Tab RxNorm: 041581 1 Ta blet(s) PO Q4H 05/19/2010 03/20/2011 Inactive Prednisone 20 mg Tab RxNorm: 238498 1 Tablet(s) PO BID 05/17/2010 Inactive Prednisone 20 mg Tab RxNorm: 809540 1 Tablet(s) PO BID 05/06/201001/2010 Inactive Premarin 1.25 mg Tab RxNorm: 329856 Tablet(s) PO 2 M-W-F, and 1 Ot-Eg-Dgh-Sun 05/05/2010 08/02/2010 Inactive Premarin 1.25 mg Tab RxNorm: 576269 Tablet(s) PO 2 M-W-F, and 1 Ep-Rh-Dvm-Sun 05/04/2010 05/04/2010 Inactive Premarin 1.25 mg Tab RxNorm: 746304 Tablet(s) PO 2 M-W-F, and 1 Wg-Bm-EgvSun 05/04/2010 05/03/2010 Inactive Prednisone 20 mg Tab RxNorm: 145052 1 Tablet(s) PO BID 04/27/2010 Inactive Alprazolam 0.5 mg Tab RxNorm: 079055 2 Tablet(s) PO QD prn 04/26/2005/22/2010 Inactive Clindamycin 300 mg Cap RxNorm: 633109 2 Capsule(s) PO TID 04/05/2010 04/18/2010 Inactive Terbinafine 250 mg Tab RxNorm: 623249 1 Tablet(s) PO QD 04/04/2010 Inactive Hydrocodone-Acetaminophen 7.5 mg-650 mg Tab RxNorm: 979731 1 Ta blet(s) PO Q4H 03/30/2010 04/18/2010 Inactive Avelox 400 mg Tab RxNorm: 220122 1 Tablet(s) PO QD 03/09/2010 010 Inactive Hydrocodone-Acetaminophen 7.5 mg-650 mg Tab RxNorm: 039568 1 Ta blet(s) PO Q4H 03/08/2010 03/27/2010 Inactive Alprazolam 0.5 mg Tab RxNorm: 973276 2 Tablet(s) PO QD prn 03/08/20 10 04/25/2010 Inactive Klor-Con 8 mEq Tab RxNorm: 719439 1 Tablet(s) PO QD when takes lasi x 03/07/2010 09/29/2019 Inactive Premarin 1.25 mg Tab RxNorm: 448171 1 Tablet(s) PO QD 03/03/201003/11 Inactive Alprazolam 0.5 mg Tab RxNorm: 322682 1 Tablet(s) PO BID PRN 010 No Stop Date Active triamterene-hydrochlorothiazide 75 mg-50 mg Tab RxNorm: 3108 18 1 Tablet(s) PO QD 02/09/2010 02/03/2011 Inactive Hydrocodone-Acetaminophen 10 mg-750 mg Tab RxNorm: 093997 1 Tablet(s) PO Q4H PRN 02/09/2010 03/20/2011 Inactive Clonidine 0.2 mg Tab RxNorm: 196268 1 Tablet(s) PO TID 01/13/201009/2009 Inactive Alprazolam 0.5 mg Tab RxNorm: 179249 1 Tablet(s) PO BID PRN 010 01/12/2010 Inactive Hydrocodone-Acetaminophen 10 mg-750 mg Tab RxNorm: 870275 1 Tablet(s) PO Q4H PRN 01/13/2010 01/12/2010 Inactive ANGELIQ 1 mg-0.5 mg Tab RxNorm: 7789918 1 Tablet(s) PO QD 12/27/2009 01/23/2010 Inactive Lasix 40 mg Tab RxNorm: 132534 1 Tablet(s) PO QAM 12/14/2009 06/11/20 10 Inactive Vitamin B12 1000mcg Tablet RxNorm: 1 Tablet(s) PO QD No Start Date Active cyclobenzaprine 10 mg tablet RxNorm: 070543 1 Tablet(s) PO TID as needed DO NOT USE WITH BACLOFEN No Start Date Active Vitamin D 5,000 unit Tab RxNorm: 1 Tablet(s) PO QD No Start Date Active vitamin E (dl, acetate) 400 unit Cap RxNorm: 084481 1 Capsule(s ) PO QD No Start Date Active Benadryl 25 mg Cap RxNorm: 7013914 Capsule(s) PO PRN No Start Date Inactive amitriptyline 100 mg tablet RxNorm: 674902 1 Tablet(s) PO QHS No St art Date 11/27/2016 Inactive Zithromax Z-Dustin 250 mg tablet RxNorm: 621206 Tablet(s) PO as di rected No Start Date 07/22/2013 Inactive Klor-Con 8 mEq tablet,extended release RxNorm: 183280 1 Tablet( s) PO BID No Start Date 07/28/2012 Inactive scopolamine 1.5 mg 72 hr Transderm Patch RxNorm: 611197 Application TD Q72H for motion sickness No Start Date 05/25/2013 Inactive Klonopin 1 mg tablet RxNorm: 332668 1-2 Tablet(s) PO QHS as nee ded for sleep No Start Date 06/20/2015 Inactive Klor-Con M20 mEq tablet,extended release RxNorm: 939250 2 Tablet(s) PO BID to use with lasix No Start Date 11/11/2013 Inactive Bystolic 5 mg tablet RxNorm: 203645 1 Tablet(s) PO QD No Start Date 1 Inactive Bystolic 10 mg tablet RxNorm: 993266 1 Tablet(s) PO BID No Start Da te 07/06/2015 Inactive Premarin 1.25 mg Tab RxNorm: 785254 Tablet(s) PO 2 --, and 1 Be-Du-Mmf-Sun No Start Date 05/03/2010 Inactive baclofen 20 mg tablet RxNorm: 402927 1 Tablet(s) PO TID as needed for muscle spasm No Start Date 07/22/2015 Inactive hydrocodone-acetaminophen 7.5 mg-650 mg Tab RxNorm: 415798 1 Tablet(s) PO Q4H as needed for pain No Start Date 03/20/2011 Inactive albuterol sulfate 1.25 mg/3 mL Neb Solution RxNorm: 367900 1 Unit Dose INH Q4H 2boxes No Start Date 09/06/2015 Inactive Butrans 20 mcg/hour Transderm Patch RxNorm: 707378 1 TD WEEKLY apply to skin weekly after removing previous. No Start Date 07/22/2013 Inactive Medrol (Dustin) 4 mg tablets in a dose pack RxNorm: 217452 Tablet(s) PO As Directed No Start Date 07/30/2016 Inactive hydrocodone-acetaminophen 10 mg-325 mg Tab RxNorm: 0776530 1-2 Tablet(s) PO TID as needed for pain No Start Date 03/19/2011 Inactive Klonopin 1 mg tablet RxNorm: 477914 1 Tablet(s) PO QHS No Start Date 02/28/2016 Inactive honey topical RxNorm: topical No Start Date 06/16/2018 Inactive Clonidine 0.2 mg Tab RxNorm: 762675 1 Tablet(s) PO TID No Start Date 01/12/2010 Inactive ketorolac 10 mg tablet RxNorm: 872664 1 Tablet(s) PO Q8H No Start D ate 03/18/2012 Inactive as needed for headache Singulair 10 mg Tab RxNorm: 606204 1 Tablet(s) PO QD No Start Date Inactive Premarin 1.25 mg Tab RxNorm: 827846 1 Tablet(s) PO QD No Start Date 1 Inactive Flonase 50 mcg/Actuation Nasal [place] RxNorm: 1966657 1 [place] BID No Start Date 03/18/2012 Inactive Terbinafine 250 mg Tab RxNorm: 378779 1 Tablet(s) PO QD No Start Da te 04/03/2010 Inactive Fexofenadine 180 mg Tab RxNorm: 2827540 1 Tablet(s) PO QD No Start Date 09/06/2015 Inactive baclofen 20 mg tablet RxNorm: 069414 1 Tablet(s) PO TID as needed N o Start Date 05/25/2014 Inactive Diovan 160 mg Tab RxNorm: 975647 1 Tablet(s) PO QD No Start Date 09/12 Inactive mupirocin 2 % topical ointment RxNorm: 703371 1 Application TOP QID No Start Date 04/25/2016 Inactive ZOFRAN ODT 4 mg Tab, Rapid Dissolve RxNorm: 306724 1 Tablet(s) PO Q4H No Start Date 03/18/2012 Inactive as needed for nausea and vomiting Alprazolam 0.5 mg Tab RxNorm: 612870 1 Tablet(s) PO BID PRN No Star t Date 01/12/2010 Inactive cyclobenzaprine 10 mg tablet RxNorm: 854507 1 Tablet(s) PO TID as needed for muscle spasm No Start Date 10/08/2017 Inactive Albuterol 0.083% Aerosol Solution RxNorm: 1 Appl ication INH Q4H Use one ampule every 4 hrs with nebulizer as needed for shortness of breath. No Start Date 10/09/2010 Inactive lorazepam 1 mg tablet RxNorm: 070732 1 1/2 Tablet(s) PO QHS No Star t Date 02/02/2016 Inactive Melatonin 3 mg Tab RxNorm: 606478 Tablet(s) PO PRN No Start Date 07/11 Inactive Medrol (Dustin) 4 mg Tabs in a Dose Pack RxNorm: 646869 Tablet(s) PO N o Start Date 11/28/2010 Inactive lorazepam 1 mg tablet RxNorm: 615002 1 Tablet(s) PO QHS as need ed for sleep No Start Date 01/30/2016 Inactive hydrocodone-acetaminophen 10 mg-325 mg Tab RxNorm: 8379548 1-2 Tablet(s) PO QID as needed for severe pain No Start Date 03/24/2012 Inactive celecoxib 200 mg capsule RxNorm: 122818 1 Capsule(s) PO BID No Star t Date 06/26/2019 Inactive amlodipine 5 mg-benazepril 20 mg capsule RxNorm: 441241 1 Capsu le(s) PO QD No Start Date 04/10/2017 Inactive Bystolic 20 mg tablet RxNorm: 960432 1/2 Tablet(s) PO QAM No Start Date 01/23/2016 Inactive Bystolic 20 mg tablet RxNorm: 909900 1 Tablet(s) PO QAM No Start Da te 04/25/2016 Inactive Ambien 10 mg Tab RxNorm: 097852 1 Tablet(s) PO QHS No Start Date 05/11 Inactive Klor-Con 8 mEq Tab RxNorm: 910084 1 Tablet(s) PO QD when takes lasix No Start Date 03/06/2010 Inactive aspirin 81 mg tablet RxNorm: 553340 1 Tablet(s) PO QD No Start Date 0 01/29/2018 Inactive hydrocodone-acetaminophen 10 mg-325 mg Tab RxNorm: 2545672 1-2 T ablet(s) PO QID No Start Date 01/10/2012 Inactive Bystolic 10 mg tablet RxNorm: 596760 1 Tablet(s) PO QAM take one daily in the morning. No Start Date 05/28/2013 Inactive nystatin 100,000 unit/mL Oral Susp RxNorm: 827531 5 Milliliter( s) PO QID No Start Date 03/18/2012 Inactive swish and spit scopolamine 1.5 mg 72 hr Transderm Patch RxNorm: 749660 1 Unit Dose TD Q72H for motion sickness No Start Date 12/23/2013 Inactive Hydrocodone-Acetaminophen 10 mg-750 mg Tab RxNorm: 269630 1 Tablet(s) PO Q4H PRN No Start Date 01/12/2010 Inactive Soma 350 mg tablet RxNorm: 262896 1 Tablet(s) PO TID as needed for spasm No Start Date 01/12/2013 Inactive baclofen 10 mg tablet RxNorm: 852800 1 Tablet(s) PO TID as needed for muscle spasm No Start Date 09/18/2019 Inactive Soma 350 mg Tab RxNorm: 605847 1 Tablet(s) PO TID for spasm No Star t Date 01/31/2012 Inactive Co Q-10 400 mg capsule RxNorm: 361289 1 Capsule(s) PO QD No Start D ate 01/21/2019 Inactive nystatin 100,000 unit/gram topical cream RxNorm: 273561 Applica tion TOP BID No Start Date 03/22/2015 Inactive Exforge 5 mg-160 mg Tab RxNorm: 141640 1 Tablet(s) PO QD No Start D ate 10/09/2010 Inactive Hydrocodone-Acetaminophen 7.5 mg-650 mg Tab RxNorm: 490441 1 Ta blet(s) PO Q4H No Start Date 03/07/2010 Inactive Robaxin-750 750 mg Tab RxNorm: 758520 1-2 Tablet(s) PO TID prn spasm No Start Date 05/21/2011 Inactive amlodipine 5 mg tablet RxNorm: 854782 1 Tablet(s) PO QHS No Start D ate 09/29/2015 Inactive oxycodone-acetaminophen 10 mg-325 mg tablet RxNorm: 4350206 1-2 Tablet(s) PO Q6H No Start Date 06/16/2018 Inactive Triamterene-Hydrochlorothiazide 75 mg-50 mg Tab RxNorm: 3108 18 1 Tablet(s) PO QD No Start Date 02/08/2010 Inactive Alprazolam 0.5 mg Tab RxNorm: 273572 2 Tablet(s) PO QD prn No Start Date 03/07/2010 Inactive Bystolic 20 mg tablet RxNorm: 776721 1 Tablet(s) PO QAM No Start Da te 08/17/2015 Inactive ketorolac 10 mg tablet RxNorm: 270395 1 Tablet(s) PO QID prn he adache No Start Date 07/17/2012 Inactive acyclovir 800 mg Tab RxNorm: 116700 1 Tablet(s) PO BID No Start Date 03/18/2012 Inactive duloxetine 60 mg capsule,delayed release RxNorm: 681583 1 Capsu le(s) PO QD No Start Date 09/29/2015 Inactive Norvasc 5 mg tablet RxNorm: 804506 1 Tablet(s) PO QHS No Start Date 1 10/18/2014 Inactive promethazine 25 mg tablet RxNorm: 051738 1 Tablet(s) PO Q8H use sparingly No Start Date 07/22/2013 Inactive alprazolam 0.5 mg tablet RxNorm: 806545 3 Tablet(s) PO QHS No Start Date 06/06/2015 Inactive Lunesta 3 mg tablet RxNorm: 094622 1 Tablet(s) PO QHS No Start Date 0 09/20/2017 Inactive hydrocodone-acetaminophen 10 mg-325 mg Tab RxNorm: 2234074 1-2 Tablet(s) PO TID as needed for pain No Start Date 12/10/2011 Inactive Coricidin HBP Cough & Cold 4 mg-30 mg Tab RxNorm: 2094276 Tablet (s) PO PRN No Start Date 10/09/2010 Inactive Bactroban 2 % Ointment RxNorm: 173126 Application TOP QID to so res No Start Date 02/22/2012 Inactive Flonase 50 mcg/actuation Nasal [place] RxNorm: 394729 2 [place] QHS No Start Date 03/03/2014 Inactive Medication Administered No Medication Administered data Immunizations Vaccine Codes Date Status Tetanus, Diptheria, Pertussis CVX: 115 02/27/2014 Results Observation Observation Code Item Item Code Result Date S ervice Location [facility] 10688 AST 15 U/L 2019 Unknown [facility] 62227 ALT 13 U/L 2019 Unknown [facility] 30687 BUN 12 mg/dL 2019 Unknown [facility] 05156 ALBUMIN 3.9 g/dL 2019 Unknown [facility] 13247 CHLORIDE 97 mmol/L 2019 Unknown [facility] 33292 Bili Total 0.4 mg/dL 09/29 Unknown COMPREHENS[facility] METABOLIC 98113 ALK PHOS 130 U/L 2019 Unknown [facility] 67606 SODIUM 136 mmol/L 09/29 Unknown [facility] MET[facility] 05239 CREATININE 0.92 mg/dL 09/11 Unknown [facility] 05078 CALCIUM 9.1 mg/dL 2019 Unknown [facility] 11270 POTASSIUM 4.4 mmol/L 09/29 Unknown [facility] 61834 Total Protein 6.2 g/dL Unknown [facility] 12269 Glucose 391 mg/dL 2019 Unknown [facility] 93855 Bicarbonate 30 mmol/L 09/11 Unknown COMPREHENSIVE METABOLIC 90046 AGAP 9 mmol/L 2019 Unknown MEAN GLUC 0005113 Calc Mean Gluc 332 mg/dL 09/29/2019 Unkn own COMPLETE BLOOD COUNT [id number] WBC 7.0 10e9/L 09/29/19 Unknown COMPLETE BLOOD COUNT [id number] RBC 4.69 10e12/L 2019 Unknown COMPLETE BLOOD COUNT 8638512 HEMOGLOBIN 14.6 g/dL 09/29/19 Unknown COMPLETE BLOOD COUNT 5356916 HEMATOCRIT 45.2 % 09/29/19 Unknown COMPLETE BLOOD COUNT [id number] MCV 96.4 fL 0 Unknown COMPLETE BLOOD COUNT [id number] MCH 31.1 pg 0 Unknown COMPLETE BLOOD COUNT 9304024 MCHC 32.3 g/dL 0 Unknown COMPLETE BLOOD COUNT 3107106 PLATELET COUNT 209 10e9/L Unknown COMPLETE BLOOD COUNT 7976702 Mean Plt Volume 9.8 fL Unknown COMPLETE BLOOD COUNT 0799593 Neut Auto 48.1 % 0 Unknown COMPLETE BLOOD COUNT 2132156 Lymph Auto 36.5 % 09/29/19 Unknown COMPLETE BLOOD COUNT 1038454 [place] Auto 8.6 % 0 Unknown COMPLETE BLOOD COUNT [id number] RDW 13.4 % 0 Unknown COMPLETE BLOOD COUNT 2594180 Eos Auto 6.5 % 0 Unknown COMPLETE BLOOD COUNT [id number] Baso Auto 0.3 % 0 Unknown COMPLETE BLOOD COUNT [id number] Neutrophil Abs 3.37 10e9/L Unknown COMPLETE BLOOD COUNT [id number] Lymphocyte Abs 2.56 10e9/L Unknown COMPLETE BLOOD COUNT [id number] Monocyte Abs 0.60 10e9/L 09/11 Unknown COMPLETE BLOOD COUNT [id number] Eosinophil Abs 0.46 10e9/L Unknown COMPLETE BLOOD COUNT [id number] RDW-SD 45.9 fL 0 Unknown COMPLETE BLOOD COUNT [id number] Basophil Abs 0.02 10e9/L 09/11 Unknown [facility] 82831 Cholesterol 248 mg/dL 09/29/2019 Unkno wn [facility] 48476 Triglyceride 898 mg/dL 09/29/2019 Unkn own [facility] 20575 HDL CHOLESTEROL 41 mg/dL 09/29/2019 U nknown [facility] 03450 Chol/HDL Ratio 6.05 ratio 09/29/2019 U nknown [facility] 89682 NON-HDL Chol 207 mg/dL 09/29/2019 Unkn own [facility] 60221 LDL Cholesterol N/A Trig >400 020 Unknown GLYCOSYLATED HEMOGLOBIN TEST 33645 Hgb A1c 96646-0 13.2 % 0 09/29/2019 Unknown FREE T4 93303 T4 Free 0.75 ng/dL 09/29/2019 Unknown GFR CALC 7164181 GFR Non Afr Amr >60 mL/min 09/29/2019 Un known GFR CALC 0928043 GFR Afr Amr >60 mL/min 09/29/2019 Unknow n THYROID STIMULATING HORMONE 54050 TSH 4.245 uIU/mL 09/29/2019 Unknown COMPLETE BLOOD COUNT [id number] WBC 10.7 10e9/L 018 Unknown COMPLETE BLOOD COUNT [id number] RBC 4.59 10e12/L 2017 Unknown COMPLETE BLOOD COUNT 1862365 HEMOGLOBIN 14.8 g/dL 12/11/19 18 Unknown COMPLETE BLOOD COUNT 9943834 HEMATOCRIT 44.9 % 12/11/19 18 Unknown COMPLETE BLOOD COUNT 0653280 MCV 97.8 fL 8 Unknown COMPLETE BLOOD COUNT 5052371 MCH 32.2 pg 8 Unknown COMPLETE BLOOD COUNT 0098305 MCHC 33.0 g/dL 8 Unknown COMPLETE BLOOD COUNT 9607635 PLATELET COUNT 261 10e9/L 10/2017 Unknown COMPLETE BLOOD COUNT 0986338 Mean Plt Volume 9.5 fL 10/2017 Unknown COMPLETE BLOOD COUNT 4498038 Neut Auto 59.9 % 8 Unknown COMPLETE BLOOD COUNT 3243173 Lymph Auto 27.4 % 12/11/19 18 Unknown COMPLETE BLOOD COUNT 0438750 [place] Auto 8.2 % 8 Unknown COMPLETE BLOOD COUNT 6371367 RDW 13.3 % 8 Unknown COMPLETE BLOOD COUNT 6537572 Eos Auto 4.1 % 8 Unknown COMPLETE BLOOD COUNT 5501079 Baso Auto 0.4 % 8 Unknown COMPLETE BLOOD COUNT 4896814 Neutrophil Abs 6.41 10e9/L Unknown COMPLETE BLOOD COUNT 9451694 Lymphocyte Abs 2.93 10e9/L Unknown COMPLETE BLOOD COUNT 8444353 Monocyte Abs 0.88 10e9/L 10/2017 Unknown COMPLETE BLOOD COUNT 3559419 Eosinophil Abs 0.44 10e9/L Unknown COMPLETE BLOOD COUNT 9384780 RDW-SD 46.2 fL 8 Unknown COMPLETE BLOOD COUNT [id number] Basophil Abs 0.04 10e9/L 10/2017 Unknown THYROID STIMULATING HORMONE 32363 TSH 4.015 uIU/mL 12/10/2017 Unknown COMPREHENSIVE METABOLIC 03788 AST 25 U/L 2017 Unknown COMPREHENSIVE METABOLIC 72003 ALT 17 U/L 2017 Unknown COMPREHENSIVE METABOLIC 80587 BUN 19 mg/dL 2017 Unknown COMPREHENSIVE METABOLIC 69333 ALBUMIN 4.0 g/dL 2017 Unknown COMPREHENSIVE METABOLIC 34005 CHLORIDE 91 mmol/L 2017 Unknown COMPREHENSIVE METABOLIC 08126 Bili Total 0.5 mg/dL 12/10 Unknown COMPREHENSIVE METABOLIC 55649 ALK PHOS 75 U/L 2017 Unknown COMPREHENSIVE METABOLIC 38743 SODIUM 136 mmol/L 12/10 Unknown COMPREHENSIVE METABOLIC 71319 CREATININE 1.05 mg/dL 10/2017 Unknown COMPREHENSIVE METABOLIC 82129 CALCIUM 8.9 mg/dL 2017 Unknown COMPREHENSIVE METABOLIC 50560 POTASSIUM 3.4 mmol/L 12/10 Unknown COMPREHENSIVE METABOLIC 16495 Total Protein 6.5 g/dL Unknown COMPREHENS[facility] METABOLIC 74512 Glucose 138 mg/dL 2017 Unknown COMPREHENSIVE METABOLIC 15776 Bicarbonate 35 mmol/L 10/2017 Unknown COMPREHENSIVE METABOLIC 99304 AGAP 10 mmol/L 2017 Unknown MEAN GLUC 2330830 Calc Mean Gluc 171 mg/dL 12/10/2017 Unkn own [facility] 43032 Cholesterol 204 mg/dL 12/10/2017 Unkno wn [facility] 58840 Triglyceride 411 mg/dL 12/10/2017 Unkn own [facility] 10172 HDL CHOLESTEROL 50 mg/dL 12/10/2017 U nknown [facility] 01036 Chol/HDL Ratio 4.08 ratio 12/10/2017 U nknown [facility] 89354 NON-HDL Chol 154 mg/dL 12/10/2017 Unkn own [facility] 93628 LDL Cholesterol N/A Trig >400 018 Unknown GLYCOSYLATED HEMOGLOBIN TEST 75839 Hgb A1c 79209-0 7.6 % 0 12/10/2017 Unknown FREE T4 34980 T4 Free 1.40 ng/dL 12/10/2017 Unknown GFR CALC 2543539 GFR Non Afr Amr 55 mL/min 12/10/2017 Unk nown GFR CALC 7571781 GFR Afr Amr >60 mL/min 12/10/2017 Unknow n GFR CALC 6071737 GFR Non Afr Amr 48 mL/min 06/28/2017 Unk nown GFR CALC 0730486 GFR Afr Amr 59 mL/min 06/28/2017 Unknown COMPREHENSIVE METABOLIC 64062 AST 32 U/L 2016 Unknown COMPREHENSIVE METABOLIC 02122 ALT 22 U/L 2016 Unknown COMPREHENSIVE METABOLIC 93329 BUN 23 mg/dL 2016 Unknown COMPREHENSIVE METABOLIC 85592 ALBUMIN 4.7 g/dL 2016 Unknown COMPREHENSIVE METABOLIC 94642 CHLORIDE 89 mmol/L 2016 Unknown COMPREHENSIVE METABOLIC 21618 Bili Total 0.5 mg/dL 06/28 Unknown COMPREHENSIVE METABOLIC 36553 ALK PHOS 90 U/L 2016 Unknown COMPREHENSIVE METABOLIC 50129 SODIUM 135 mmol/L 06/28 Unknown COMPREHENSIVE METABOLIC 02544 CREATININE 1.18 mg/dL 06/10 Unknown COMPREHENSIVE METABOLIC 46783 CALCIUM 9.7 mg/dL 2016 Unknown COMPREHENSIVE METABOLIC 34191 POTASSIUM 3.5 mmol/L 06/28 Unknown COMPREHENSIVE METABOLIC 47896 Total Protein 7.7 g/dL Unknown [facility]PRE[facility] MET[facility]OL[facility] 63370 Glucose 129 mg/dL 2016 Unknown COMPREHENSIVE METABOLIC 67537 Bicarbonate 34 mmol/L 06/10 Unknown COMPREHENSIVE METABOLIC 01550 AGAP 12 mmol/L 2016 Unknown [facility] 27686 HDL TEST 64 MG/DL 08/27/2014 Unknown [facility] 62153 TRIG 222 MG/DL 08/27/2014 Unknown [facility] 97378 TEST LDL 209 MG/DL 08/27/2014 Unknown [facility] 79288 CHOL 317 MG/DL 08/27/2014 Unknown [facility] 66701 RCHOL/HDL 4.95 RATIO 08/27/2014 Unknow n [facility] 22892 NON-HDL CH 253 MG/DL 08/27/2014 Unknow n GFR CALC 8289218 GFR AA >60 ML/MIN 08/27/2014 Unknown GFR CALC 1249147 GFR NON-AA >60 ML/MIN 08/27/2014 Unknown COMPLETE BLOOD COUNT 1973860 WBC 7.0 10e9/L 08/27/20 14 Unknown COMPLETE BLOOD COUNT 4353341 RBC 4.98 10e12/L 2013 Unknown COMPLETE BLOOD COUNT 4839100 HGB 15.6 g/dL 4 Unknown COMPLETE BLOOD COUNT 8618800 HCT DET 46.5 % 4 Unknown COMPLETE BLOOD COUNT 9214524 MCV 93.4 fL 4 Unknown COMPLETE BLOOD COUNT 8825325 MCH 31.3 pg 4 Unknown COMPLETE BLOOD COUNT 2376452 MCHC 33.5 g/dL 4 Unknown COMPLETE BLOOD COUNT 7179769 PLT 309 10e9/L 08/27/20 14 Unknown COMPLETE BLOOD COUNT 1855112 MPV 9.6 fL 4 Unknown COMPLETE BLOOD COUNT 9143290 CADEN % 57.2 % 4 Unknown COMPLETE BLOOD COUNT 5958558 LY % 33.2 % 4 Unknown COMPLETE BLOOD COUNT 7953358 MON % 7.3 % 4 Unknown COMPLETE BLOOD COUNT 8460011 EOS % 2.0 % 4 Unknown COMPLETE BLOOD COUNT 3097809 BASO % 0.3 % 4 Unknown COMPLETE BLOOD COUNT 1414056 RDW 13.7 % 4 Unknown COMPLETE BLOOD COUNT 1463328 ABS ACDEN 4.00 10e9/L 014 Unknown COMPLETE BLOOD COUNT [id number] ABS LYMPH 2.32 10e9/L 014 Unknown COMPLETE BLOOD COUNT 2186845 ABS MONO 0.51 10e9/L 014 Unknown COMPLETE BLOOD COUNT [id number] ABS EOS 0.14 10e9/L 014 Unknown COMPLETE BLOOD COUNT 2601224 ABS BASO 0.02 10e9/L 014 Unknown COMPLETE BLOOD COUNT 1440903 RDW-SD 45.1 fL 4 Unknown COMPREHENSIVE METABOLIC 41278 AST 13 U/L 2013 Unknown COMPREHENSIVE METABOLIC 75932 ALT 11 IU/L 2013 Unknown COMPREHENSIVE METABOLIC 36067 BUN 23 MG/DL 2013 Unknown COMPREHENSIVE METABOLIC 93883 ALBUMIN 4.4 GM/DL 2013 Unknown COMPREHENSIVE METABOLIC 79832 CHLORIDE 99 MMOL/L 2013 Unknown COMPREHENSIVE METABOLIC 49510 BILI TOT 0.5 MG/DL 2013 Unknown COMPREHENSIVE METABOLIC 39558 ALK PHOS 56 U/L 2013 Unknown COMPREHENSIVE METABOLIC 89223 SODIUM 138 MMOL/L 08/27 Unknown COMPREHENSIVE METABOLIC 42505 CREATININE 0.95 MG/DL 08/10 Unknown COMPREHENSIVE METABOLIC 95827 CALCIUM 9.8 MG/DL 2013 Unknown COMPREHENSIVE METABOLIC 93372 POTASSIUM 3.5 MMOL/L 08/27 Unknown COMPREHENSIVE METABOLIC 90930 PROT TOT 6.8 GM/DL 2013 Unknown COMPREHENSIVE METABOLIC 92273 Glucose 90 MG/DL 2013 Unknown COMPREHENSIVE METABOLIC 54083 BICARB 34 MMOL/L 2013 Unknown COMPREHENSIVE METABOLIC 14339 ANION GAP 5 MEQ/L 2013 Unknown LIPASE 00043 LIPASE 11 IU/L 07/21/2014 Unknown AMYLASE 14597 AMYLASE 39 IU/L 07/21/2014 Unknown HEMOGLOBIN A1C (GLYCOSYLATED) 0036765 A1C [facility] 07821-0 6.2 % 03/05/2013 Unknown THYROID STIMULATING HORMONE 00207 TSH 6.986 uIU/ML 03/05/2013 Unknown COMPLETE BLOOD COUNT 9669642 WBC 12.7 10e9/L 013 Unknown COMPLETE BLOOD COUNT 8193263 RBC 4.53 10e12/L 2012 Unknown COMPLETE BLOOD COUNT 2483489 HGB 14.7 g/dL 3 Unknown COMPLETE BLOOD COUNT 0022292 HCT DET 43.1 % 3 Unknown COMPLETE BLOOD COUNT 2824926 MCV 95.1 fL 3 Unknown COMPLETE BLOOD COUNT 6056363 MCH 32.5 pg 3 Unknown COMPLETE BLOOD COUNT 8297897 MCHC 34.1 g/dL 3 Unknown COMPLETE BLOOD COUNT 1364956 PLT 346 10e9/L 03/05/20 13 Unknown COMPLETE BLOOD COUNT 9104629 MPV 9.5 fL 3 Unknown COMPLETE BLOOD COUNT 0800442 CADEN % 67.6 % 3 Unknown COMPLETE BLOOD COUNT 6890409 LY % 22.1 % 3 Unknown COMPLETE BLOOD COUNT 8558932 MON % 6.6 % 3 Unknown COMPLETE BLOOD COUNT 2137770 EOS % 3.3 % 3 Unknown COMPLETE BLOOD COUNT [id number] BASO % 0.4 % 3 Unknown COMPLETE BLOOD COUNT 3915160 RDW 14.0 % 3 Unknown COMPLETE BLOOD COUNT 2894667 ABS CADEN 8.59 10e9/L 013 Unknown COMPLETE BLOOD COUNT 7655648 ABS LYMPH 2.81 10e9/L 013 Unknown COMPLETE BLOOD COUNT 9112607 ABS MONO 0.84 10e9/L 013 Unknown COMPLETE BLOOD COUNT 9987807 ABS EOS 0.42 10e9/L 013 Unknown COMPLETE BLOOD COUNT 2442802 ABS BASO 0.05 10e9/L 013 Unknown COMPLETE BLOOD COUNT [id number] RDW-SD 46.0 fL 3 Unknown FREE T4 09484 FREE T4 1.14 NG/DL 03/05/2013 Unknown COMPREHENSIVE METABOLIC 07393 AST 17 U/L 2012 Unknown COMPREHENSIVE METABOLIC 97899 ALT 12 IU/L 2012 Unknown COMPREHENSIVE METABOLIC 00177 BUN 24 MG/DL 2012 Unknown COMPREHENSIVE METABOLIC 81248 ALBUMIN 4.2 GM/DL 2012 Unknown COMPREHENSIVE METABOLIC 46586 CHLORIDE 93 MMOL/L 2012 Unknown COMPREHENSIVE METABOLIC 17004 BILI TOT 0.5 MG/DL 2012 Unknown COMPREHENSIVE METABOLIC 15331 ALK PHOS 75 U/L 2012 Unknown COMPREHENSIVE METABOLIC 60389 SODIUM 141 MMOL/L 03/05 Unknown COMPREHENSIVE METABOLIC 32998 CREATININE 1.36 MG/DL 02/09 Unknown COMPREHENSIVE METABOLIC 16973 CALCIUM 9.2 MG/DL 2012 Unknown COMPREHENSIVE METABOLIC 12954 POTASSIUM 3.1 MMOL/L 03/05 Unknown COMPREHENSIVE METABOLIC 50754 PROT TOT 6.9 GM/DL 2012 Unknown COMPREHENSIVE METABOLIC 94430 Glucose 123 MG/DL 2012 Unknown COMPREHENSIVE METABOLIC 64116 BICARB 36 MMOL/L 2012 Unknown COMPREHENSIVE METABOLIC 23664 ANION GAP 12 MEQ/L 2012 Unknown GFR CALC 2286846 GFR AA 51.0L ML/MIN 03/05/2013 Unknow n GFR CALC 8184960 GFR NON-AA 42.0L ML/MIN 03/05/2013 Unkno wn COMPREHENSIVE METABOLIC 51024 AST 14 U/L 2012 Unknown COMPREHENSIVE METABOLIC 65693 ALT 11 IU/L 2012 Unknown COMPREHENSIVE METABOLIC 30874 BUN 16 MG/DL 2012 Unknown COMPREHENSIVE METABOLIC 66978 ALBUMIN 4.2 GM/DL 2012 Unknown COMPREHENSIVE METABOLIC 57867 CHLORIDE 98 MMOL/L 2012 Unknown COMPREHENSIVE METABOLIC 63092 BILI TOT 0.4 MG/DL 2012 Unknown COMPREHENSIVE METABOLIC 55383 ALK PHOS 77 U/L 2012 Unknown COMPREHENSIVE METABOLIC 67676 SODIUM 139 MMOL/L 09/25 Unknown COMPREHENSIVE METABOLIC 57465 CREATININE 0.86 MG/DL 09/10 Unknown COMPREHENSIVE METABOLIC 43420 CALCIUM 9.5 MG/DL 2012 Unknown COMPREHENSIVE METABOLIC 64946 POTASSIUM 3.8 MMOL/L 09/25 Unknown COMPREHENSIVE METABOLIC 88283 PROT TOT 6.8 GM/DL 2012 Unknown COMPREHENSIVE METABOLIC 95694 Glucose 91 MG/DL 2012 Unknown COMPREHENSIVE METABOLIC 02151 BICARB 32 MMOL/L 2012 Unknown COMPREHENSIVE METABOLIC 77005 ANION GAP 9 MEQ/L 2012 Unknown FREE T4 10602 FREE T4 0.98 NG/DL 09/25/2012 Unknown THYROID STIMULATING HORMONE 65365 TSH 1.736 uIU/ML 09/25/2012 Unknown C-REACTIVE PROTEIN (CRP) QUANT 64702 CRP 2.3 MG/DL 09/25/2012 Unknown COMPLETE BLOOD COUNT [id number] WBC 11.9 10e9/L 013 Unknown COMPLETE BLOOD COUNT 7244658 RBC 4.87 10e12/L 2012 Unknown COMPLETE BLOOD COUNT 5511165 HGB 15.1 g/dL 3 Unknown COMPLETE BLOOD COUNT 1870213 HCT DET 44.8 % 3 Unknown COMPLETE BLOOD COUNT 2864340 MCV 92.0 fL 3 Unknown COMPLETE BLOOD COUNT 7490583 MCH 31.0 pg 3 Unknown COMPLETE BLOOD COUNT 2940796 MCHC 33.7 g/dL 3 Unknown COMPLETE BLOOD COUNT 5267458 PLT 343 10e9/L 09/25/19 13 Unknown COMPLETE BLOOD COUNT 2354513 MPV 9.0 fL 3 Unknown COMPLETE BLOOD COUNT 3401299 CADEN % 68.2 % 3 Unknown COMPLETE BLOOD COUNT 0968520 LY % 22.4 % 3 Unknown COMPLETE BLOOD COUNT 4752250 MON % 6.4 % 3 Unknown COMPLETE BLOOD COUNT 4491692 EOS % 2.7 % 3 Unknown COMPLETE BLOOD COUNT 7684683 BASO % 0.3 % 3 Unknown COMPLETE BLOOD COUNT 6265969 RDW 13.8 % 3 Unknown COMPLETE BLOOD COUNT 3548036 ABS CADEN 8.12 10e9/L 013 Unknown COMPLETE BLOOD COUNT 3315176 ABS LYMPH 2.67 10e9/L 013 Unknown COMPLETE BLOOD COUNT [id number] ABS MONO 0.76 10e9/L 013 Unknown COMPLETE BLOOD COUNT 3196141 ABS EOS 0.32 10e9/L 013 Unknown COMPLETE BLOOD COUNT 6948644 ABS BASO 0.04 10e9/L 013 Unknown COMPLETE BLOOD COUNT 4870042 RDW-SD 45.6 fL 3 Unknown GFR CALC 3242885 GFR AA >60 ML/MIN 09/25/2012 Unknown GFR CALC 8584281 GFR NON-AA >60 ML/MIN 09/25/2012 Unknown ERYTHROCYTE SEDIMENTATION RATE 22965 ESR 19 MM/HR 05/06/2012 Unknown VITAMIN B 12 FOLIC ACID 26303|30040 VIT B 12 922 PG/ML 04/11 Unknown VITAMIN B 12 FOLIC ACID 85732|79268 FOLIC ACID 13.6 NG/ML Unknown URIC ACID 89590 URIC ACID 7.8 MG/DL 05/06/2012 Unknown COMPLETE BLOOD COUNT 17037 WBC 11.9 10e9/L 012 Unknown COMPLETE BLOOD COUNT 72035 RBC 5.30 10e12/L 2011 Unknown COMPLETE BLOOD COUNT 20247 HGB 16.6 g/dL 2 Unknown COMPLETE BLOOD COUNT 15945 HCT DET 47.2 % 2 Unknown COMPLETE BLOOD COUNT 33463 MCV 89.1 fL 2 Unknown COMPLETE BLOOD COUNT 67367 MCH 31.3 pg 2 Unknown COMPLETE BLOOD COUNT 37733 MCHC 35.2 g/dL 2 Unknown COMPLETE BLOOD COUNT 99149 PLT 362 10e9/L 05/06/20 12 Unknown COMPLETE BLOOD COUNT 15735 MPV 9.4 fL 2 Unknown COMPLETE BLOOD COUNT 78874 CADEN % 68.2 % 2 Unknown COMPLETE BLOOD COUNT 28118 LY % 22.0 % 2 Unknown COMPLETE BLOOD COUNT 02953 MON % 6.9 % 2 Unknown COMPLETE BLOOD COUNT 28386 EOS % 2.6 % 2 Unknown COMPLETE BLOOD COUNT 80883 BASO % 0.3 % 2 Unknown COMPLETE BLOOD COUNT 44077 RDW 12.8 % 2 Unknown COMPLETE BLOOD COUNT 46480 ABS CADEN 8.12 10e9/L 012 Unknown COMPLETE BLOOD COUNT 26660 ABS LYMPH 2.62 10e9/L 012 Unknown COMPLETE BLOOD COUNT 79351 ABS MONO 0.82 10e9/L 012 Unknown COMPLETE BLOOD COUNT 47123 ABS EOS 0.31 10e9/L 012 Unknown COMPLETE BLOOD COUNT 65962 ABS BASO 0.04 10e9/L 012 Unknown COMPLETE BLOOD COUNT 77022 RDW-SD 41.5 fL 2 Unknown GFR CALC 1892453 GFR AA >60 ML/MIN 05/06/2012 Unknown GFR CALC 6977762 GFR NON-AA 58.0L ML/MIN 05/06/2012 Unkno wn FREE T4 20758 FREE T4 1.15 NG/DL 05/06/2012 Unknown THYROID STIMULATING HORMONE 36635 TSH 1.568 uIU/ML 05/06/2012 Unknown COMPREHENSIVE METABOLIC 27063 AST 20 U/L 2011 Unknown COMPREHENSIVE METABOLIC 15388 ALT 12 IU/L 2011 Unknown COMPREHENSIVE METABOLIC 52178 BUN 20 MG/DL 2011 Unknown COMPREHENSIVE METABOLIC 56652 ALBUMIN 4.5 GM/DL 2011 Unknown COMPREHENSIVE METABOLIC 46987 CHLORIDE 91 MMOL/L 2011 Unknown COMPREHENSIVE METABOLIC 52976 BILI TOT 0.4 MG/DL 2011 Unknown COMPREHENSIVE METABOLIC 05515 ALK PHOS 73 U/L 2011 Unknown COMPREHENSIVE METABOLIC 27916 SODIUM 139 MMOL/L 05/06 Unknown COMPREHENSIVE METABOLIC 43167 CREATININE 1.02 MG/DL 04/11 Unknown COMPREHENSIVE METABOLIC 25159 CALCIUM 9.7 MG/DL 2011 Unknown COMPREHENSIVE METABOLIC 56517 POTASSIUM 3.1 MMOL/L 05/06 Unknown COMPREHENSIVE METABOLIC 14029 PROT TOT 7.3 GM/DL 2011 Unknown COMPREHENSIVE METABOLIC 21942 Glucose 118 MG/DL 2011 Unknown COMPREHENSIVE METABOLIC 97752 BICARB 33 MMOL/L 2011 Unknown COMPREHENSIVE METABOLIC 05901 ANION GAP 15 MEQ/L 2011 Unknown Procedures Procedure Codes Date ROUTINE VENIPUNCTURE CPT-4: 58109 09/29/2019 URINALYSIS NONAUTO W/O SCOPE CPT-4: 93566 09/29/2019 COMPREHEN METABOLIC PANEL CPT-4: 55509 09/29/2019 LIPID PANEL CPT-4: 97313 09/29/2019 A1C HPLC CPT-4: 32848 09/29/2019 ASSAY OF FREE THYROXINE CPT-4: 43786 09/29/2019 ASSAY THYROID STIM HORMONE CPT-4: 84923 09/29/2019 COMPLETE CBC W/AUTO DIFF WBC CPT-4: 38679 09/29/2019 URINALYSIS NONAUTO W/O SCOPE CPT-4: 12587 09/30/2018 MICROALBUMIN QUANTITATIVE CPT-4: 85897 09/30/2018 CEFTRIAXONE SODIUM INJECTION CPT-4: J0696 06/19/2018 THER/PROPH/DIAG INJ SC/IM CPT-4: 58966 06/19/2018 CEFTRIAXONE SODIUM INJECTION CPT-4: J0696 06/17/2018 THER/PROPH/DIAG INJ SC/IM CPT-4: 94189 06/17/2018 THER/PROPH/DIAG INJ SC/IM CPT-4: 46380 05/16/2018 KETOROLAC TROMETHAMINE INJ CPT-4: J1885 05/16/2018 ONDANSETRON HCL INJECTION CPT-4: J2405 05/16/2018 THER/PROPH/DIAG INJ SC/IM CPT-4: 66014 05/16/2018 ROUTINE VENIPUNCTURE CPT-4: 83227 03/20/2018 COMPREHEN METABOLIC PANEL CPT-4: 68409 03/20/2018 DEXAMETHASONE SODIUM PHOS CPT-4: J1100 02/11/2018 THER/PROPH/DIAG INJ SC/IM CPT-4: 31338 02/11/2018 TRIAMCINOLONE ACET INJ NOS CPT-4: J3301 02/11/2018 CEFTRIAXONE SODIUM INJECTION CPT-4: J0696 02/01/2018 THER/PROPH/DIAG INJ SC/IM CPT-4: 59138 02/01/2018 CEFTRIAXONE SODIUM INJECTION CPT-4: J0696 01/30/2018 THER/PROPH/DIAG INJ SC/IM CPT-4: 33210 01/30/2018 ROUTINE VENIPUNCTURE CPT-4: 65481 12/10/2017 ASSAY OF FREE THYROXINE CPT-4: 10778 12/10/2017 ASSAY THYROID STIM HORMONE CPT-4: 82459 12/10/2017 COMPREHEN METABOLIC PANEL CPT-4: 28022 12/10/2017 COMPLETE CBC W/AUTO DIFF WBC CPT-4: 79025 12/10/2017 LIPID PANEL CPT-4: 94949 12/10/2017 A1C HPLC CPT-4: 94414 12/10/2017 CEFTRIAXONE SODIUM INJECTION CPT-4: J0696 12/10/2017 THER/PROPH/DIAG INJ SC/IM CPT-4: 29062 12/10/2017 CEFTRIAXONE SODIUM INJECTION CPT-4: J0696 12/07/2017 THER/PROPH/DIAG INJ SC/IM CPT-4: 49249 12/07/2017 DEXAMETHASONE SODIUM PHOS CPT-4: J1100 12/07/2017 THER/PROPH/DIAG INJ SC/IM CPT-4: 91700 12/07/2017 CEFTRIAXONE SODIUM INJECTION CPT-4: J0696 10/08/2017 THER/PROPH/DIAG INJ SC/IM CPT-4: 41558 10/08/2017 CEFTRIAXONE SODIUM INJECTION CPT-4: J0696 09/21/2017 THER/PROPH/DIAG INJ SC/IM CPT-4: 68673 09/21/2017 CEFTRIAXONE SODIUM INJECTION CPT-4: J0696 09/20/2017 THER/PROPH/DIAG INJ SC/IM CPT-4: 04830 09/20/2017 REMOVAL OF NAIL PLATE CPT-4: 47498 08/29/2017 THER/PROPH/DIAG INJ SC/IM CPT-4: 77113 08/29/2017 TRIAMCINOLONE ACET INJ NOS CPT-4: J3301 08/29/2017 CEFTRIAXONE SODIUM INJECTION CPT-4: J0696 08/29/2017 THER/PROPH/DIAG INJ SC/IM CPT-4: 57133 08/29/2017 DESTRUCT PREMALG LESION (Cryosurgery) CPT-4: 93049 ROUTINE VENIPUNCTURE CPT-4: 96679 06/27/2017 ASSAY OF FREE THYROXINE CPT-4: 51925 06/27/2017 ASSAY THYROID STIM HORMONE CPT-4: 26258 06/27/2017 COMPREHEN METABOLIC PANEL CPT-4: 47709 06/27/2017 COMPLETE CBC W/AUTO DIFF WBC CPT-4: 02965 06/27/2017 EXC TR-EXT B9+REECE 0.5 CM< CPT-4: 48575 01/24/2017 THER/PROPH/DIAG INJ SC/IM CPT-4: 08827 08/02/2016 DEXAMETHASONE SODIUM PHOS CPT-4: J1100 08/02/2016 DESTRUCT PREMALG LESION (Cryosurgery) CPT-4: 33576 EXC TR-EXT B9+REECE 0.5 CM< CPT-4: 40822 08/01/2016 AEROBIC WOUND CULTURE & STN CPT-4: 87860 07/06/2016 CEFTRIAXONE SODIUM INJECTION CPT-4: J0696 05/25/2016 THER/PROPH/DIAG INJ SC/IM CPT-4: 34998 05/25/2016 THER/PROPH/DIAG INJ SC/IM CPT-4: 51964 04/26/2016 DEXAMETHASONE SODIUM PHOS CPT-4: J1100 04/26/2016 CEFTRIAXONE SODIUM INJECTION CPT-4: J0696 04/26/2016 THER/PROPH/DIAG INJ SC/IM CPT-4: 99717 04/26/2016 THER/PROPH/DIAG INJ SC/IM CPT-4: 40520 02/09/2016 TRIAMCINOLONE ACET INJ NOS CPT-4: J3301 02/09/2016 URINALYSIS NONAUTO W/O SCOPE CPT-4: 79186 01/24/2016 URINE CULTURE/ COLONY COUNT CPT-4: 60914 01/24/2016 THER/PROPH/DIAG INJ SC/IM CPT-4: 64584 12/08/2015 TRIAMCINOLONE ACET INJ NOS CPT-4: J3301 12/08/2015 THER/PROPH/DIAG INJ SC/IM CPT-4: 73407 10/07/2015 TRIAMCINOLONE ACET INJ NOS CPT-4: J3301 10/07/2015 DESTRUCT PREMALG LESION (Cryosurgery) CPT-4: 29913 THER/PROPH/DIAG INJ SC/IM CPT-4: 13718 03/16/2015 METHYLPREDNISOLONE 40 MG INJ CPT-4: J1030 03/16/2015 DESTRUCT PREMALG LESION (Cryosurgery) CPT-4: 25475 THER/PROPH/DIAG INJ SC/IM CPT-4: 04829 09/11/2014 METHYLPREDNISOLONE 40 MG INJ CPT-4: J1030 09/11/2014 TRIAMCINOLONE ACET INJ NOS CPT-4: J3301 09/11/2014 CEFTRIAXONE SODIUM INJECTION CPT-4: J0696 09/11/2014 THER/PROPH/DIAG INJ SC/IM CPT-4: 22242 09/11/2014 ROUTINE VENIPUNCTURE CPT-4: 24523 08/27/2014 COMPREHEN METABOLIC PANEL CPT-4: 24522 08/27/2014 COMPLETE CBC W/AUTO DIFF WBC CPT-4: 58815 08/27/2014 LIPID PANEL CPT-4: 35557 08/27/2014 ROUTINE VENIPUNCTURE CPT-4: 67588 07/21/2014 ASSAY OF AMYLASE CPT-4: 60953 07/21/2014 ASSAY OF LIPASE CPT-4: 17846 07/21/2014 THER/PROPH/DIAG INJ SC/IM CPT-4: 38995 07/15/2014 TRIAMCINOLONE ACET INJ NOS CPT-4: J3301 07/15/2014 ROUTINE VENIPUNCTURE CPT-4: 65036 05/14/2014 ASSAY OF FREE THYROXINE CPT-4: 83389 05/14/2014 ASSAY THYROID STIM HORMONE CPT-4: 20952 05/14/2014 COMPREHEN METABOLIC PANEL CPT-4: 35828 05/14/2014 COMPLETE CBC W/AUTO DIFF WBC CPT-4: 70931 05/14/2014 LIPID PANEL CPT-4: 02264 05/14/2014 CEFTRIAXONE SODIUM INJECTION CPT-4: J0696 04/21/2014 THER/PROPH/DIAG INJ SC/IM CPT-4: 90525 04/21/2014 THER/PROPH/DIAG INJ SC/IM CPT-4: 48021 04/21/2014 TRIAMCINOLONE ACET INJ NOS CPT-4: J3301 04/21/2014 THER/PROPH/DIAG INJ SC/IM CPT-4: 57550 03/04/2014 METHYLPREDNISOLONE 40 MG INJ CPT-4: J1030 03/04/2014 TRIAMCINOLONE ACET INJ NOS CPT-4: J3301 03/04/2014 CEFTRIAXONE SODIUM INJECTION CPT-4: J0696 03/04/2014 THER/PROPH/DIAG INJ SC/IM CPT-4: 75543 03/04/2014 TDAP VACCINE 7 YRS/> IM CPT-4: 92918 02/27/2014 IMMUNIZATION ADMIN CPT-4: 83469 02/27/2014 DESTRUCT PREMALG LESION (Cryosurgery) CPT-4: 26239 DESTRUCT PREMALG LES 2-14 CPT-4: 93003 01/13/2014 THER/PROPH/DIAG INJ SC/IM CPT-4: 66368 10/21/2013 METHYLPREDNISOLONE 40 MG INJ CPT-4: J1030 10/21/2013 TRIAMCINOLONE ACET INJ NOS CPT-4: J3301 10/21/2013 CEFTRIAXONE SODIUM INJECTION CPT-4: J0696 08/27/2013 THER/PROPH/DIAG INJ SC/IM CPT-4: 20661 08/27/2013 THER/PROPH/DIAG INJ SC/IM CPT-4: 98530 08/27/2013 METHYLPREDNISOLONE 40 MG INJ CPT-4: J1030 08/27/2013 TRIAMCINOLONE ACET INJ NOS CPT-4: J3301 08/27/2013 THER/PROPH/DIAG INJ SC/IM CPT-4: 00249 06/23/2013 METHYLPREDNISOLONE 40 MG INJ CPT-4: J1030 06/23/2013 TRIAMCINOLONE ACET INJ NOS CPT-4: J3301 06/23/2013 THER/PROPH/DIAG INJ SC/IM CPT-4: 72505 05/26/2013 METHYLPREDNISOLONE 40 MG INJ CPT-4: J1030 05/26/2013 TRIAMCINOLONE ACET INJ NOS CPT-4: J3301 05/26/2013 ROUTINE VENIPUNCTURE CPT-4: 32495 03/05/2013 ASSAY OF FREE THYROXINE CPT-4: 40883 03/05/2013 ASSAY THYROID STIM HORMONE CPT-4: 39539 03/05/2013 COMPREHEN METABOLIC PANEL CPT-4: 61414 03/05/2013 COMPLETE CBC W/AUTO DIFF WBC CPT-4: 73994 03/05/2013 A1C GLYCOSYLATED HEMOGLOBIN TEST CPT-4: 28674 013 DRAIN/INJECT JOINT/BURSA CPT-4: 58352 12/04/2012 METHYLPREDNISOLONE 40 MG INJ CPT-4: J1030 12/04/2012 TRIAMCINOLONE ACET INJ NOS CPT-4: J3301 12/04/2012 CEFTRIAXONE SODIUM INJECTION CPT-4: J0696 11/21/2012 THER/PROPH/DIAG INJ SC/IM CPT-4: 88637 11/21/2012 THER/PROPH/DIAG INJ SC/IM CPT-4: 28982 10/14/2012 METHYLPREDNISOLONE 40 MG INJ CPT-4: J1030 10/14/2012 TRIAMCINOLONE ACET INJ NOS CPT-4: J3301 10/14/2012 URINALYSIS NONAUTO W/O SCOPE CPT-4: 52727 09/27/2012 ROUTINE VENIPUNCTURE CPT-4: 43894 09/25/2012 ASSAY OF FREE THYROXINE CPT-4: 70227 09/25/2012 ASSAY THYROID STIM HORMONE CPT-4: 87253 09/25/2012 COMPREHEN METABOLIC PANEL CPT-4: 89139 09/25/2012 COMPLETE CBC W/AUTO DIFF WBC CPT-4: 23763 09/25/2012 C-REACTIVE PROTEIN CPT-4: 26149 09/25/2012 THER/PROPH/DIAG INJ SC/IM CPT-4: 77901 08/29/2012 METHYLPREDNISOLONE 40 MG INJ CPT-4: J1030 08/29/2012 TRIAMCINOLONE ACET INJ NOS CPT-4: J3301 08/29/2012 DESTRUCT PREMALG LESION (Cryosurgery) CPT-4: 15797 THER/PROPH/DIAG INJ SC/IM CPT-4: 60592 05/06/2012 METHYLPREDNISOLONE 40 MG INJ CPT-4: J1030 05/06/2012 TRIAMCINOLONE ACET INJ NOS CPT-4: J3301 05/06/2012 VITAMIN B 12 FOLIC ACID CPT-4: 84532|25869 05/06/2012 RBC SED RATE AUTOMATED CPT-4: 32286 05/06/2012 ROUTINE VENIPUNCTURE CPT-4: 90527 05/06/2012 ASSAY OF FREE THYROXINE CPT-4: 66987 05/06/2012 ASSAY THYROID STIM HORMONE CPT-4: 58217 05/06/2012 COMPREHEN METABOLIC PANEL CPT-4: 97055 05/06/2012 COMPLETE CBC W/AUTO DIFF WBC CPT-4: 64805 05/06/2012 ASSAY OF BLOOD/URIC ACID CPT-4: 83475 05/06/2012 THER/PROPH/DIAG INJ SC/IM CPT-4: 61281 03/19/2012 KETOROLAC TROMETHAMINE INJ CPT-4: J1885 03/19/2012 KETOROLAC TROMETHAMINE INJ CPT-4: J1885 01/30/2012 THER/PROPH/DIAG INJ SC/IM CPT-4: 66270 01/30/2012 PROMETHAZINE HCL INJECTION CPT-4: J2550 01/30/2012 THER/PROPH/DIAG INJ SC/IM CPT-4: 33403 01/24/2012 METHYLPREDNISOLONE 40 MG INJ CPT-4: J1030 01/24/2012 TRIAMCINOLONE ACET INJ NOS CPT-4: J3301 01/24/2012 THER/PROPH/DIAG INJ SC/IM CPT-4: 70580 09/13/2011 KETOROLAC TROMETHAMINE INJ CPT-4: J1885 09/13/2011 THER/PROPH/DIAG INJ SC/IM CPT-4: 58440 09/13/2011 PROMETHAZINE HCL INJECTION CPT-4: J2550 09/13/2011 CEFTRIAXONE SODIUM INJECTION CPT-4: J0696 07/20/2011 THER/PROPH/DIAG INJ SC/IM CPT-4: 66224 07/20/2011 THER/PROPH/DIAG INJ SC/IM CPT-4: 26154 07/20/2011 METHYLPREDNISOLONE INJECTION CPT-4: J2930 07/20/2011 URINALYSIS NONAUTO W/O SCOPE CPT-4: 17263 05/09/2011 CEFTRIAXONE SODIUM INJECTION CPT-4: J0696 05/09/2011 THER/PROPH/DIAG INJ SC/IM CPT-4: 95051 05/09/2011 THER/PROPH/DIAG INJ SC/IM CPT-4: 60787 05/09/2011 PROMETHAZINE HCL INJECTION CPT-4: J2550 05/09/2011 HYDRATION IV INFUSION INIT CPT-4: 07462 05/09/2011 DESTRUCT PREMALG LESION (Cryosurgery) CPT-4: 19426 DESTRUCT PREMALG LES 2-14 CPT-4: 73984 07/19/2010 REMOVAL OF SKIN TAGS <W/15 CPT-4: 13693 05/30/2010 THER/PROPH/DIAG INJ SC/IM CPT-4: 92326 04/05/2010 CEFTRIAXONE SODIUM INJECTION CPT-4: J0696 04/05/2010 TRIAMCINOLONE ACET INJ NOS CPT-4: J3301 04/05/2010 METHYLPREDNISOLONE 40 MG INJ CPT-4: J1030 04/05/2010 THER/PROPH/DIAG INJ SC/IM CPT-4: 51582 04/05/2010 TRIAMCINOLONE ACET INJ NOS CPT-4: J3301 03/09/2010 METHYLPREDNISOLONE 40 MG INJ CPT-4: J1030 03/09/2010 THER/PROPH/DIAG INJ SC/IM CPT-4: 45321 03/09/2010 THER/PROPH/DIAG INJ SC/IM CPT-4: 13025 03/09/2010 CEFTRIAXONE SODIUM INJECTION CPT-4: J0696 03/09/2010 [...] 1: 132/80 Code: 8480-6 BMI: 35.8 Code: 68013-5 Heart Rate 1: 88 bpm Height: 5'4" Respiratory Rate: 20 bpm SpO2: 95% Tempera ture: 36.9 (C) / 98.5 (F) Weight: 210 lbs 05/28/2019 Blood Pressure 1: 126/82 Code: 8480-6 BMI: 35.0 Code: 71132-8 Heart Rate 1: 88 bpm Height: 5'4" [...] 1: 128/90 Code: 8480-6 BMI: 37.2 Code: 64432-8 Heart Rate 1: 84 bpm Height: 5'4" Respiratory Rate: 20 bpm SpO2: 95% Tempera ture: 36.6 (C) / 97.8 (F) Weight: 217 lbs 08/27/2018 Blood Pressure 1: 128/88 Code: 8480-6 BMI: 38.3 Code: 43454-3 Heart Rate 1: 84 bpm Height: 5'4" [...] 1: 119/72 Code: 8480-6 BMI: 37.4 Code: 60379-8 Heart Rate 1: 82 bpm Height: 5'4" Respiratory Rate: 12 bpm SpO2: 94% Tempera ture: 35.2 (C) / 95.4 (F) Weight: 218 lbs 12/18/2017 Blood Pressure 1: 128/86 Code: 8480-6 BMI: 37.8 Code: 75889-7 Heart Rate 1: 84 bpm Height: 5'4" [...] 1: 128/82 Code: 8480-6 BMI: 35.5 Code: 80995-3 Heart Rate 1: 84 bpm Height: 5'4" [...] 1: 128/82 Code: 8480-6 BMI: 30.2 Code: 34197-3 Heart Rate 1: 80 bpm Height: 5'4" [...] 1: 128/86 Code: 8480-6 BMI: 32.8 Code: 78806-3 Heart Rate 1: 66 bpm Height: 5'4" Respiratory Rate: 18 bpm Temperature: 36 .3 (C) / 97.3 (F) Weight: 191 lbs 06/23/2013 Blood Pressure 1: 132/94 Code: 8480-6 BMI: 34.0 Code: 49659-5 Heart Rate 1: 84 bpm Height: 5'4" Respiratory Rate: 20 bpm Temperature: 36 .8 (C) / 98.2 (F) Weight: 198 lbs 05/26/2013 Blood Pressure 1: 114/80 Code: 8480-6 BMI: 35.0 Code: 67263-7 Heart Rate 1: 80 bpm Height: 5'4" Respiratory Rate: 20 bpm Temperature: 36 .4 (C) / 97.6 (F) Weight: 204 lbs 04/16/2013 Blood Pressure 1: 114/82 Code: 8480-6 BMI: 36.7 Code: 24649-7 Heart Rate 1: 84 bpm Height: 5'4" Respiratory Rate: 20 bpm Temperature: 36 .7 (C) / 98.0 (F) Weight: 214 lbs 03/05/2013 Blood Pressure 1: 136/90 Code: 8480-6 BMI: 37.1 Code: 60614-4 Heart Rate 1: 84 bpm Height: 5'4" [...] 1: 168/114 Code: 8480-6 BMI: 36.2 Code: 18794-8 Heart Rate 1: 104 bpm Height: 5'4" Respiratory Rate: 20 bpm Temperature: 36 .8 (C) / 98.2 (F) Weight: 211 lbs 11/22/2012 Blood Pressure 1: 128/90 Code: 8480-6 Heart Rate 1: 88 bpm Respiratory Rate: 20 bpm SpO2: 96% Temperature: 36.8 (C) / 98.2 (F) 11/21/2012 Blood Pressure 1: 146/100 Code: 8480-6 BMI: 35.7 Code: 97391-0 Heart Rate 1: 96 bpm Height: 5'4" [...] 1: 138/100 Code: 8480-6 BMI: 35.7 Code: 68692-1 Heart Rate 1: 96 bpm Height: 5'4" Respiratory Rate: 20 bpm Temperature: 36 .8 (C) / 98.2 (F) Weight: 208 lbs 05/06/2012 Blood Pressure 1: 154/102 Code: 8480-6 BMI: 34.7 Code: 57199-6 Heart Rate 1: 116 bpm Height: 5'4" Respiratory Rate: 20 bpm Temperature: 36 .8 (C) / 98.2 (F) Weight: 202 lbs 04/03/2012 Blood Pressure 1: 134/94 Code: 8480-6 BMI: 34.8 Code: 73797-9 Heart Rate 1: 108 bpm Height: 5'4" Respiratory Rate: 20 bpm Temperature: 36 .8 (C) / 98.2 (F) Weight: 203 lbs 03/19/2012 Blood Pressure 1: 148/106 Code: 8480-6 BMI: 35.0 Code: 07576-8 Heart Rate 1: 100 bpm Height: 5'4" Respiratory Rate: 20 bpm Temperature: 36 .6 (C) / 97.9 (F) Weight: 204 lbs 02/22/2012 Blood Pressure 1: 146/94 Code: 8480-6 He art Rate 1: 88 bpm 02/21/2012 Blood Pressure 1: 172/120 Code: 8480-6 B lood Pressure 2: 152/106 Code: 8480-6 Heart Rate 1: 116 bpm 02/20/2012 Blood Pressure 1: 160/100 Code: 8480-6 BMI: 32.0 Code: 35547-7 Heart Rate 1: 84 bpm Height: 5'7" Temperature: 36.5 (C) / 97.7 (F) Weight: 204 lbs 01/30/2012 Blood Pressure 1: 152/110 Code: 8480-6 BMI: 32.0 Code: 27238-4 Heart Rate 1: 116 bpm Height: 5'7" Respiratory Rate: 20 bpm Temperature: 37 .0 (C) / 98.6 (F) Weight: 204 lbs 01/24/2012 Blood Pressure 1: 146/100 Code: 8480-6 BMI: 32.0 Code: 11842-7 Heart Rate 1: 100 bpm Height: 5'7" Respiratory Rate: 20 bpm Temperature: 36 .7 (C) / 98.0 (F) Weight: 204 lbs 01/10/2012 Blood Pressure 1: 156/94 Code: 8480-6 BMI: 32.6 Code: 51855-2 Heart Rate 1: 72 bpm Height: 5'7" Respiratory Rate: 20 bpm Temperature: 36 .8 (C) / 98.2 (F) Weight: 208 lbs 12/11/2011 Blood Pressure 1: 146/100 Code: 8480-6 Heart Rat e 1: 116 bpm Height: 5'7" Respiratory Rate: 20 bpm Temperature: 36.9 (C) / 98.4 (F) We ight: 11/09/2011 Blood Pressure 1: 148/96 Code: 8480-6 BMI: 32.1 Code: 14628-8 Heart Rate 1: 116 bpm Height: 5'7" Respiratory Rate: 20 bpm Temperature: 36 .7 (C) / 98.0 (F) Weight: 205 lbs 09/13/2011 Blood Pressure 1: 126/88 Code: 8480-6 Heart Rate 1: 88 bpm Height: 5'7" Respiratory Rate: 20 bpm Temperature: 36.9 (C) / 98.4 (F) We ight: 08/31/2011 Blood Pressure 1: 118/82 Code: 8480-6 BMI: 32.0 Code: 89232-9 Heart Rate 1: 80 bpm Height: 5'7" Temperature: 36.4 (C) / 97.6 (F) Weight: 204 lbs 07/06/2011 Blood Pressure 1: 128/86 Code: 8480-6 BMI: 30.9 Code: 04043-8 Heart Rate 1: 92 bpm Height: 5'7" Respiratory Rate: 20 bpm Temperature: 36 .9 (C) / 98.4 (F) Weight: 197 lbs 06/06/2011 Blood Pressure 1: 112/74 Code: 8480-6 BMI: 31.0 Code: 30059-7 Heart Rate 1: 72 bpm Height: 5'7" [...] 1: 128/92 Code: 8480-6 BMI: 33.6 Code: 56545-2 Heart Rate 1: 104 bpm Height: 5'4" [...] Check-up Encounters Encounter Performer Location Codes Date ([id number]) OFFICE/OUTPATIENT VISIT EST Diagnosis: Type 2 diabetes mellitus with hyperglycemia[ICD10: E11.65] María Elena MONTEROQUELINE Fabiola APPIAH [employer] [employer] CPT-4: 57044 11/20/2019 ([id number]) OFFICE/OUTPATIENT VISIT EST Diagnosis: Ingrowing nail[ICD10: L60.0] Diagnosis: Type 2 diabetes mellitus with hyperglycemia[ICD10: E11.65] Kathleen APPIAH DO [facility] CPT-4: 04091 10/07/2019 ([id number]) OFFICE/OUTPATIENT VISIT EST Diagnosis: DM w/o complication type II, uncontrolled[ICD10: E11.65] Diagnosis: Hypertriglyceridemia[ICD10: E78.1] Diagnosis: Essential hypertension[ICD10: I10] María Elena BASURTO TED APPIAH [employer] [facility] CPT-4: 50961 09/30/2019 ([id number]) NURSE/OUTPATIENT VISIT EST Diagnosis: Essential (primary) hypertension[ICD10: I10] Diagnosis: Cervicalgia[ICD10: M54.2] Diagnosis: Hyperglycemia, unspecified[ICD10: R73.9] Diagnosis: Mixed hyperlipidemia[ICD10: E78.2] María Elena BASURTO TED APPIAH [employer] CPT-4: 50337 09/29/2019 ([id number]) OFFICE/OUTPATIENT VISIT EST Diagnosis: Essential (primary) hypertension[ICD10: I10] Diagnosis: Fall from bed, sequela[ICD10: W06.XXXS] María Elena REED LucioJj TD [employer] CPT-4: 99447 05/28/2019 ([id number]) NURSE/OUTPATIENT VISIT EST Diagnosis: Essential (primary) hypertension[ICD10: I10] María Elena JUARES Fabiola APPIAH [employer] CPT-4: 18230 05/19/2019 ([id number]) OFFICE/OUTPATIENT VISIT EST Diagnosis: Essential (primary) hypertension[ICD10: I10] Diagnosis: Type 2 diabetes mellitus with hyperglycemia[ICD10: E11.65] Diagnosis: Intervertebral disc disorders with radiculopathy, 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] Diagnosis: Hormone replacement therapy[ICD10: Z79.890] María Elena JUARES LucioJj TD [employer] CPT-4: 73080 01/22/2019 ([id number]) OFFICE/OUTPATIENT VISIT EST Diagnosis: Essential (primary) hypertension[ICD10: I10] Diagnosis: Type 2 diabetes mellitus with hyperglycemia[ICD10: E11.65] María Elena APPIAH [facility] CPT-4: 03293 09/30/2018 ([id number]) OFFICE/OUTPATIENT VISIT EST Diagnosis: Pain in left elbow[ICD10: M25.522] Diagnosis: Acute stress reaction[ICD10: F43.0] Diagnosis: Primary insomnia[ICD10: F51.01] Diagnosis: Abnormal weight gain[ICD10: R63.5] María Elena APPIAH [facility] CPT-4: 49302 08/27/2018 ([id number]) OFFICE/OUTPATIENT VISIT EST Diagnosis: Acute recurrent sinusitis, unspecified[ICD10: J01.91] Diagnosis: Follicular disorder, unspecified[ICD10: L73.9] Diagnosis: Tinea corporis[ICD10: B35.4] María Elena APPIAH [facility] CPT-4: 88776 08/09/2018 ([id number]) OFFICE/OUTPATIENT VISIT EST Diagnosis: Tinea corporis[ICD10: B35.4] Diagnosis: Anxiety disorder, unspecified[ICD10: F41.9] Diagnosis: Menopausal and female climacteric states[ICD10: N95.1] María Elena APPIAH [facility] CPT-4: 57795 07/22/2018 ([id number]) NURSE/OUTPATIENT VISIT EST Diagnosis: Cellulitis of right toe[ICD10: L03.031] María Elena APPIAH [facility] CPT-4: 56908 06/19/2018 ([id number]) OFFICE/OUTPATIENT VISIT EST Diagnosis: Cellulitis of right toe[ICD10: L03.031] Kathleen APPIAH [facility] CPT-4: 90337 06/17/2018 ([id number]) OFFICE/OUTPATIENT VISIT EST Diagnosis: Migraine without aura, intractable, without status migrainosus[ICD10: G43.019] Diagnosis: Zoster without complications[ICD10: B02.9] Kathleen APPIAH DO [facility] CPT-4: 81889 05/16/2018 ([id number]) OFFICE/OUTPATIENT VISIT EST Diagnosis: Cellulitis of right lower limb[ICD10: L03.115] Kathleen APPIAH DO [facility] CPT-4: 69536 03/20/2018 ([id number]) OFFICE/OUTPATIENT VISIT EST Diagnosis: Cellulitis of right lower limb[ICD10: L03.115] Kathleen APPIAH DO [facility] CPT-4: 73836 03/18/2018 ([id number]) OFFICE/OUTPATIENT VISIT EST Diagnosis: Cellulitis of right lower limb[ICD10: L03.115] Kathleen APPIAH DO [facility] CPT-4: 89221 03/15/2018 ([id number]) OFFICE/OUTPATIENT VISIT EST Diagnosis: Acute sinusitis, unspecified[ICD10: J01.90] Kathleen APPIAH DO [facility] CPT-4: 53972 02/11/2018 ([id number]) NURSE/OUTPATIENT VISIT EST Diagnosis: Otitis media, unspecified, right ear[ICD10: H66.91] María Elena APPIAH DO [facility] CPT-4: 46463 02/01/2018 ([id number]) OFFICE/OUTPATIENT VISIT EST Diagnosis: Acute suppurative otitis media without spontaneous rupture of ear drum, left ear[ICD10: H66.002] Diagnosis: Abnormal weight gain[ICD10: R63.5] Diagnosis: Intervertebral disc disorders with radiculopathy, 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] Kathleen APPIAH DO [facility] CPT-4: 99 214 01/30/2018 ([id number]) PREV VISIT EST AGE 40-64 Diagnosis: Encounter for general adult medical examination without abnormal findings[ICD10: Z00.00] Diagnosis: Essential (primary) hypertension[ICD10: I10] Diagnosis: Mixed hyperlipidemia[ICD10: E78.2] Diagnosis: Type 2 diabetes mellitus with hyperglycemia[ICD10: E11.65] Diagnosis: 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] María Elena APPIAH DO [facility] CPT-4: 98091 12/18/2017 ([id number]) OFFICE/OUTPATIENT VISIT EST Diagnosis: Cellulitis of right toe[ICD10: L03.031] Diagnosis: Mixed hyperlipidemia[ICD10: E78.2] Diagnosis: Essential (primary) hypertension[ICD10: I10] Diagnosis: Hyperglycemia, unspecified[ICD10: R73.9] Diagnosis: Nontoxic goiter, 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] María Elena APPIAH DO [facility] CPT-4: 85803 12/10/2017 ([id number]) OFFICE/OUTPATIENT VISIT EST Diagnosis: Cellulitis of right toe[ICD10: L03.031] Diagnosis: Acute sinusitis, unspecified[ICD10: J01.90] Kathleen APPIAH DO [facility] CPT-4: 30437 12/07/2017 OFFICE/OUTPATIENT VISIT EST Diagnosis: Acute maxillary sinusitis, unspecified[ICD10: J01.00] Kathleen APPIAH DO [facility] CPT-4: 06221 10/08/2017 ([id number]) OFFICE/OUTPATIENT VISIT EST Diagnosis: Cellulitis of left toe[ICD10: L03.032] María Elena APPIAH [facility] CPT-4: 15582 09/21/2017 ([id number]) OFFICE/OUTPATIENT VISIT EST Diagnosis: Insomnia, unspecified[ICD10: G47.00] Diagnosis: Major depressive disorder, single episode, unspecified[ICD10: F32.9] Diagnosis: Anxiety disorder, unspecified[ICD10: F41.9] Diagnosis: Cellulitis of left toe[ICD10: L03.032] Diagnosis: Snoring[ICD10: R06.83] Kathleen APPIAH DO [facility] CPT-4: 49389 09/20/2017 ([id number]) OFFICE/OUTPATIENT VISIT EST Diagnosis: Cellulitis of left toe[ICD10: L03.032] María Elena APPIAH DO [facility] CPT-4: 17160 07/19/2017 OFFICE/OUTPATIENT VISIT EST Diagnosis: Chronic sinusitis, unspecified[ICD10: J32.9] Diagnosis: Generalized hyperhidrosis[ICD10: R61] Kathleen APPIAH [employer] [facility] CPT-4: 37428 06/27/2017 ([id number]) OFFICE/OUTPATIENT VISIT EST Diagnosis: Intervertebral disc disorders with radiculopathy, 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] Diagnosis: Primary insomnia[ICD10: F51.01] Diagnosis: Other fatigue[ICD10: R53.83] María Elena APPIAH [employer] [facility] CPT-4: 74383 04/10/2017 ([id number]) OFFICE/OUTPATIENT VISIT EST Diagnosis: Primary insomnia[ICD10: F51.01] Diagnosis: Localized edema[ICD10: R60.0] Diagnosis: 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] María Elena APPIAH [employer] [facility] CPT-4: 04222 12/13/2016 ([id number]) OFFICE/OUTPATIENT VISIT EST Diagnosis: Primary insomnia[ICD10: F51.01] Diagnosis: Cyanosis[ICD10: R23.0] María Elena Bazzi [employer] CPT-4: 20151 11/01/2016 ([id number]) PREV VISIT EST AGE 40-64 Diagnosis: Encounter for gynecological examination (general) (routine) without abnormal findings[ICD10: Z01.419] Diagnosis: Encounter for routine child health examination without abnormal findings[ICD10: Z00.129] María Elena APPIAH [employer] [facility] CPT-4: 06149 10/17/2016 ([id number]) OFFICE/OUTPATIENT VISIT EST Diagnosis: Other seasonal allergic rhinitis[ICD10: J30.2] María Elena APPIAH [employer] CPT-4: 60827 10/10/2016 ([id number]) OFFICE/OUTPATIENT VISIT EST Diagnosis: Pain in left arm[ICD10: M79.602] Diagnosis: Contact with and (suspected) exposure to potentially hazardous body fluids[ICD10: Z77.21] Diagnosis: 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, 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] Diagnosis: Unspecified open wound, right foot, sequela[ICD10: S91.301S] María Elena APPIAH DO [facility] CPT-4: 43964 09/19/2016 ([id number]) OFFICE/OUTPATIENT VISIT EST Diagnosis: Chronic sinusitis, unspecified[ICD10: J32.9] Diagnosis: Allergic rhinitis due to pollen[ICD10: J30.1] María Elena APPIAH DO [facility] CPT-4: 34317 08/24/2016 ([id number]) OFFICE/OUTPATIENT VISIT EST Diagnosis: Acute bronchitis, unspecified[ICD10: J20.9] María Elena APPIAH DO [facility] CPT-4: 96639 08/16/2016 ([id number]) OFFICE/OUTPATIENT VISIT EST Diagnosis: Otitis media, unspecified, right ear[ICD10: H66.91] Diagnosis: Acute bronchitis, unspecified[ICD10: J20.9] María Elena APPIAH DO [facility] CPT-4: 51287 08/10/2016 ([id number]) OFFICE/OUTPATIENT VISIT EST Diagnosis: Acute recurrent sinusitis, unspecified[ICD10: J01.91] Diagnosis: Allergic rhinitis due to pollen[ICD10: J30.1] María Elena APPIAH DO [facility] CPT-4: 75737 08/02/2016 ([id number]) OFFICE/OUTPATIENT VISIT EST Diagnosis: Pain in unspecified joint[ICD10: M25.50] María Elena APPIAH DO [facility] CPT-4: 93867 07/27/2016 OFFICE/OUTPATIENT VISIT EST Diagnosis: 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] Diagnosis: Acute recurrent sinusitis, unspecified[ICD10: J01.91] Diagnosis: Other fatigue[ICD10: R53.83] Diagnosis: Primary insomnia[ICD10: F51.01] Diagnosis: Pain in unspecified joint[ICD10: M25.50] María Elena APPIAH DO [facility] CPT-4: 94538 07/20/2016 ([id number]) OFFICE/OUTPATIENT VISIT EST Diagnosis: Blister (nonthermal), left great toe, initial encounter[ICD10: S90.422A] Loan APPIAH DO [facility] CPT-4: 12643 ([id number]) OFFICE/OUTPATIENT VISIT EST Diagnosis: Acute recurrent sinusitis, unspecified[ICD10: J01.91] María Elena APPIAH DO [facility] CPT-4: 79208 05/25/2016 ([id number]) OFFICE/OUTPATIENT VISIT EST Diagnosis: Acute sinusitis, unspecified[ICD10: J01.90] María Elena APPIAH DO [facility] CPT-4: 70819 04/26/2016 ([id number]) OFFICE/OUTPATIENT VISIT EST Diagnosis: Flushing[ICD10: R23.2] Diagnosis: Primary insomnia[ICD10: F51.01] María Elena APPIAH DO [facility] CPT-4: 32592 03/02/2016 ([id number]) OFFICE/OUTPATIENT VISIT EST Diagnosis: Other seasonal allergic rhinitis[ICD10: J30.2] Loan APPIAH DO [facility] CPT-4: 11971 02/09/2016 ([id number]) OFFICE/OUTPATIENT VISIT EST Diagnosis: Primary insomnia[ICD10: F51.01] Diagnosis: Urinary tract infection, site not specified[ICD10: N39.0] María Elena APPIAH DO [facility] CPT-4: 46863 01/24/2016 ([id number]) OFFICE/OUTPATIENT VISIT EST Diagnosis: Other specified disorders of Eustachian tube, bilateral[ICD10: H69.83] Diagnosis: Allergic rhinitis, unspecified[ICD10: J30.9] Loan APPIAH DO [facility] CPT-4: 86220 12/23/2015 ([id number]) OFFICE/OUTPATIENT VISIT EST Diagnosis: Acute recurrent sinusitis, unspecified[ICD10: J01.91] Diagnosis: 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] Diagnosis: Allergic rhinitis, unspecified[ICD10: J30.9] María Elena APPIAH DO [facility] CPT-4: 04976 12/08/2015 ([id number]) OFFICE/OUTPATIENT VISIT EST Diagnosis: Allergic rhinitis, unspecified[ICD10: J30.9] Diagnosis: Pain in unspecified joint[ICD10: M25.50] María Elena APPIAH DO [facility] CPT-4: 71137 10/07/2015 ([id number]) OFFICE/OUTPATIENT VISIT EST Diagnosis: Essential (primary) hypertension[ICD10: I10] María Elena APPIAH DO [facility] CPT-4: 90504 10/06/2015 OFFICE/OUTPATIENT VISIT EST Diagnosis: Localized enlarged lymph nodes[ICD10: R59.0] Diagnosis: Local infection of the skin and subcutaneous tissue, unspecified[ICD10: L08.9] June Felixgurmeetfatimah MARÍA ELENA APPIAH DO [facility] CPT- 4: 60292 09/14/2015 ([id number]) OFFICE/OUTPATIENT VISIT EST Diagnosis: Essential (primary) hypertension[ICD10: I10] Diagnosis: Actinic keratosis[ICD10: L57.0] María Elena APPIAH DO [facility] CPT-4: 62405 09/07/2015 ([id number]) OFFICE/OUTPATIENT VISIT EST Diagnosis: Essential (primary) hypertension[ICD10: I10] Diagnosis: Acute stress reaction[ICD10: F43.0] María Elena APPIAH DO [facility] CPT-4: 67688 08/18/2015 ([id number]) OFFICE/OUTPATIENT VISIT EST Diagnosis: Essential (primary) hypertension[ICD10: I10] María Elena APPIAH DO [facility] CPT-4: 34375 07/07/2015 ([id number]) OFFICE/OUTPATIENT VISIT EST Diagnosis: Essential (primary) hypertension[ICD10: I10] María Elena APPIAH DO [facility] CPT-4: 01437 06/24/2015 ([id number]) OFFICE/OUTPATIENT VISIT EST Diagnosis: Essential (primary) hypertension[ICD10: I10] María Elena APPIAH DO [facility] CPT-4: 97368 06/21/2015 ([id number]) OFFICE/OUTPATIENT VISIT EST Diagnosis: Essential (primary) hypertension[ICD10: I10] Diagnosis: Mixed hyperlipidemia[ICD10: E78.2] Diagnosis: Acute stress reaction[ICD10: F43.0] Diagnosis: Primary insomnia[ICD10: F51.01] María Elena [facility] CPT-4: 02029 06/16/2015 ([id number]) OFFICE/OUTPATIENT VISIT EST Diagnosis: INSOMNIA NOS[ICD9: 780.52] Diagnosis: HYPERTENSION[ICD9: 401.9] Diagnosis: Stress reaction[ICD9: 308.9] María Elena ValdesJj TD [facility] CPT-4: 31497 06/02/2015 ([id number]) OFFICE/OUTPATIENT VISIT EST Diagnosis: HYPERTENSION[ICD9: 401.9] Diagnosis: Stress reaction[ICD9: 308.9] María Elena ValdesJj TD [facility] CPT-4: 96464 05/20/2015 ([id number]) OFFICE/OUTPATIENT VISIT EST Diagnosis: Skin lesion[ICD9: 709.9] 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] María Elena ELLISLINE LucioJj [facility] CPT-4: 66693 05/10/2015 ([id number]) OFFICE/OUTPATIENT VISIT EST Diagnosis: SINUSITIS, ACUTE[ICD9: 461.9] Diagnosis: ALLERGIC RHINITIS[ICD9: 477.9] Diagnosis: DERMATITIS NOS[ICD9: 692.9] María Elena ELLISALCIDES Hicks Marcos ORI [facility] CPT-4: 27064 03/16/2015 OFFICE/OUTPATIENT VISIT EST Diagnosis: Otitis media[ICD9: 382.9] Diagnosis: SINUSITIS, ACUTE[ICD9: 461.9] June Flores MARÍA ELENA LucioJj [facility] CPT-4: 18870 09/11/2014 ([id number]) OFFICE/OUTPATIENT VISIT EST Diagnosis: HYPERLIPIDEMIA NEC/NOS[ICD9: 272.4] María Elena Seamusabbey COLON LucioJj [facility] CPT-4: 83923 08/31/2014 ([id number]) OFFICE/OUTPATIENT VISIT EST Diagnosis: - I - HYPERTENSION[ICD9: 401.9] Diagnosis: HYPERLIPIDEMIA NEC/NOS[ICD9: 272.4] María Elena APPIAH DO [facility] CPT-4: 41502 08/27/2014 ([id number]) OFFICE/OUTPATIENT VISIT EST Diagnosis: ABDOMINAL PAIN[ICD9: 789.00] Diagnosis: DYSPEPSIA[ICD9: 536.8] Diagnosis: Thoracic back pain[ICD9: 724.1] María Elena APPIAH DO [facility] CPT-4: 23056 07/21/2014 ([id number]) OFFICE/OUTPATIENT VISIT EST Diagnosis: ALLERGIC RHINITIS[ICD9: 477.9] María Elena APPIAH DO [facility] CPT-4: 56482 07/15/2014 ([id number]) OFFICE/OUTPATIENT VISIT EST Diagnosis: EDEMA[ICD9: 782.3] Diagnosis: Chronic insomnia[ICD9: 780.52] María Elena APPIAH [facility] CPT-4: 91957 05/18/2014 ([id number]) OFFICE/OUTPATIENT VISIT EST Diagnosis: Thyromegaly[ICD9: 240.9] Diagnosis: - I - HYPERTENSION[ICD9: 401.9] Diagnosis: ROUTINE MEDICAL EXAM[ICD9: V70.0] Diagnosis: EDEMA[ICD9: 782.3] María Elena APPIAH [facility] CPT-4: 70225 05/14/2014 OFFICE/OUTPATIENT VISIT EST Diagnosis: BRONCHITIS, ACUTE[ICD9: 466.0] Diagnosis: SINUSITIS, ACUTE[ICD9: 461.9] María Elena APPIAH DO [facility] CPT-4: 18479 04/21/2014 OFFICE/OUTPATIENT VISIT EST Diagnosis: SINUSITIS, ACUTE[ICD9: 461.9] June Flores MARÍA ELENA APPIAH [facility] CPT-4: 74739 03/04/2014 ([id number]) OFFICE/OUTPATIENT VISIT EST Diagnosis: VACCINE FOR TDAP[ICD10: Z23] María Elena APPIAH [facility] CPT-4: 57867 02/27/2014 ([id number]) OFFICE/OUTPATIENT VISIT EST Diagnosis: Seborrheic keratoses, inflamed[ICD9: 702.11] Diagnosis: ACTINIC KERATOSIS[ICD9: 702.0] Diagnosis: INSOMNIA NOS[ICD9: 780.52] María Elena PANDYA [employer] [facility] CPT-4: 88368 01/13/2014 OFFICE/OUTPATIENT VISIT EST 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] Diagnosis: ALLERGIC RHINITIS[ICD9: 477.9] Diagnosis: Serous otitis media[ICD9: 381.4] María Elena APPIAH DO [facility] CPT-4: 14697 12/24/2013 ([id number]) OFFICE/OUTPATIENT VISIT EST Diagnosis: SINUSITIS, ACUTE[ICD9: 461.9] Diagnosis: ALLERGIC RHINITIS[ICD9: 477.9] 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] María Elena APPIAH DO [facility] CPT-4: 00789 11/12/2013 ([id number]) OFFICE/OUTPATIENT VISIT EST Diagnosis: ALLERGIC RHINITIS[ICD9: 477.9] Diagnosis: SINUSITIS, ACUTE[ICD9: 461.9] María Elena APPIAH DO [facility] CPT-4: 65982 10/21/2013 ([id number]) OFFICE/OUTPATIENT VISIT EST Diagnosis: ASYMPTOMATIC VARICOSE VEINS[ICD9: 454.9] Diagnosis: INSOMNIA NOS[ICD9: 780.52] María Elena [facility] CPT-4: 90918 09/22/2013 OFFICE/OUTPATIENT VISIT EST Diagnosis: SINUSITIS, ACUTE[ICD9: 461.9] June Flores MARÍA ELENA APPIAH DO [facility] CPT-4: 69287 08/27/2013 ([id number]) OFFICE/OUTPATIENT VISIT EST Diagnosis: CEPHALGIA[ICD9: 784.0] Diagnosis: CEPHALGIA, TENSION[ICD9: 307.81] 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] María Elena APPIAH [employer] [facility] CPT-4: 26708 08/04/2013 ([id number]) OFFICE/OUTPATIENT VISIT EST Diagnosis: Cervicalgia[ICD9: 723.1] Diagnosis: SPASM OF MUSCLE[ICD9: 728.85] Diagnosis: CEPHALGIA, TENSION[ICD9: 307.81] María Elena APPIAH [employer] [facility] CPT-4: 92846 07/23/2013 ([id number]) OFFICE/OUTPATIENT VISIT EST 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] Diagnosis: ALLERGIC RHINITIS[ICD9: 477.9] María Elena APPIAH DO [facility] CPT-4: 62832 06/23/2013 ([id number]) OFFICE/OUTPATIENT VISIT EST Diagnosis: ALLERGIC RHINITIS[ICD9: 477.9] Diagnosis: ACUTE SEROUS OTITIS MEDIA[ICD9: 381.01] 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] María Elena APPIAH DO [facility] CPT-4: 94057 05/26/2013 ([id number]) OFFICE/OUTPATIENT VISIT EST Diagnosis: HYPERTENSION[ICD9: 401.9] Diagnosis: EDEMA[ICD9: 782.3] Diagnosis: Serous otitis media[ICD9: 381.4] María Elena APPIAH [employer] [facility] CPT-4: 72586 04/16/2013 ([id number]) OFFICE/OUTPATIENT VISIT EST Diagnosis: SINUSITIS, ACUTE[ICD9: 461.9] Diagnosis: ALLERGIC RHINITIS[ICD9: 477.9] Diagnosis: EDEMA[ICD9: 782.3] Diagnosis: Thyromegaly[ICD9: 240.9] Diagnosis: MALAISE AND FATIGUE[ICD9: 780.79] María Elena APPIAH [employer] [facility] CPT-4: 98081 03/05/2013 ([id number]) OFFICE/OUTPATIENT VISIT EST Diagnosis: PAIN, LOWER BACK[ICD9: 724.2] Diagnosis: SPASM OF MUSCLE[ICD9: 728.85] María Elena APPIAH [employer] [facility] CPT-4: 29309 12/23/2012 OFFICE/OUTPATIENT VISIT EST Diagnosis: Low back pain[ICD9: 724.2] Lashawn Hicks KRISTYN PANDYA DO [facility] CPT-4: 49304 12/16/2012 ([id number]) OFFICE/OUTPATIENT VISIT EST Diagnosis: PAIN, LOWER BACK[ICD9: 724.2] Diagnosis: SCIATICA[ICD9: 724.3] Diagnosis: Lumbar herniated disc[ICD9: 722.10] María Elena COLON LucioJj TD [facility] CPT-4: 29115 12/09/2012 ([id number]) OFFICE/OUTPATIENT VISIT EST Diagnosis: PAIN, LOWER BACK[ICD9: 724.2] Diagnosis: SCIATICA[ICD9: 724.3] Diagnosis: LUMBAR DISC DISPLACEMENT[ICD9: 722.10] María Elena MARIN LucioJj TD [facility] CPT-4: 53770 12/04/2012 OFFICE/OUTPATIENT VISIT EST Diagnosis: Pneumonia[ICD9: 486] Mary JUARSE LucioJj TD [facility] CPT-4: 36276 11/22/2012 ([id number]) OFFICE/OUTPATIENT VISIT EST Diagnosis: PNEUMONIA, ORGANISM[ICD9: 486] Diagnosis: Exacerbation of RAD (reactive airway disease)[ICD9: 493.92] María Elena JUARES LucioJj TD [facility] CPT-4: 41834 11/21/2012 OFFICE/OUTPATIENT VISIT EST Diagnosis: HYPERTENSION[ICD9: 401.9] Diagnosis: Cephalgia[ICD9: 784.0] Lashawn JUARES LucioJj TD [facility] CPT-4: 37964 10/29/2012 ([id number]) OFFICE/OUTPATIENT VISIT EST Diagnosis: MALAISE AND FATIGUE[ICD9: 780.79] Diagnosis: ARTHRALGIA-MULTIPLE SITES[ICD9: 719.49] María Elena REED LucioJj TD [facility] CPT-4: 80573 10/14/2012 ([id number]) OFFICE/OUTPATIENT VISIT EST Diagnosis: URINARY FREQUENCY[ICD9: 788.41] María Elena JUARES LucioJj TD [facility] CPT-4: 40703 09/27/2012 ([id number]) OFFICE/OUTPATIENT VISIT EST Diagnosis: MALAISE AND FATIGUE[ICD9: 780.79] Diagnosis: ARTHRALGIA-MULTIPLE SITES[ICD9: 719.49] María Elena APPIAH DO [facility] CPT-4: 38524 09/25/2012 ([id number]) OFFICE/OUTPATIENT VISIT EST Diagnosis: SINUSITIS, ACUTE[ICD9: 461.9] 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] María Elena APPIAH DO [facility] CPT-4: 46862 08/29/2012 OFFICE/OUTPATIENT VISIT EST Diagnosis: ACTINIC KERATOSIS[ICD9: 702.0] Diagnosis: Inflamed seborrheic keratosis[ICD9: 702.11] Diagnosis: Skin cancer of face[ICD9: 173.31] Diagnosis: HYPERTENSION[ICD9: 401.9] [facility]ía [facility]: 92694 08/12/2012 ([id number]) OFFICE/OUTPATIENT VISIT EST Diagnosis: ARTHRALGIA-MULTIPLE SITES[ICD9: 719.49] Diagnosis: GOUT[ICD9: 274.9] Diagnosis: HYPERTENSION[ICD9: 401.9] Diagnosis: Tachycardia[ICD9: 785.0] María Elena BRADFORD [facility] CPT-4: 22115 05/06/2012 ([id number]) OFFICE/OUTPATIENT VISIT EST Diagnosis: INSOMNIA NOS[ICD9: 780.52] María Elena PANDYA [facility] CPT-4: 27077 04/03/2012 ([id number]) OFFICE/OUTPATIENT VISIT EST Diagnosis: INSOMNIA NOS[ICD9: 780.52] Diagnosis: HYPERTENSION[ICD9: 401.9] Diagnosis: MIGRAINE NOS/NOT INTRCBL[ICD9: 346.90] María Elena APPIAH [facility] CPT-4: 83300 03/19/2012 ([id number]) OFFICE/OUTPATIENT VISIT EST Diagnosis: CELLULITIS[ICD9: 682.9] Diagnosis: Ankle pain[ICD9: 719.47] Diagnosis: HYPERTENSION[ICD9: 401.9] María Elena ValdesJj SEAMUS NDERose Mary [facility] CPT-4: 94845 02/20/2012 ([id number]) OFFICE/OUTPATIENT VISIT EST Diagnosis: MIGRAINE NOS/NOT INTRCBL[ICD9: 346.90] Diagnosis: Vomiting[ICD9: 787.03] María Elena JUARES LucioJj CIRO Bazzi [facility] CPT-4: 33569 01/30/2012 ([id number]) OFFICE/OUTPATIENT VISIT EST Diagnosis: EDEMA[ICD9: 782.3] Diagnosis: HYPERTENSION[ICD9: 401.9] Diagnosis: ALLERGIC RHINITIS[ICD9: 477.9] Diagnosis: ARTHRALGIA-MULTIPLE SITES[ICD9: 719.49] María Elena Seamusabbey REED LucioJj TD [facility] CPT-4: 15619 01/24/2012 ([id number]) OFFICE/OUTPATIENT VISIT EST Diagnosis: SPASM OF MUSCLE[ICD9: 728.85] Diagnosis: Thoracic back pain[ICD9: 724.1] Diagnosis: Cervical pain[ICD9: 723.1] María Elena Hicks KRISTYN MUMTAZ [facility] CPT-4: 03638 01/10/2012 OFFICE/OUTPATIENT VISIT EST Diagnosis: PAIN, LOWER BACK[ICD9: 724.2] Diagnosis: LUMBAR DISC DISPLACEMENT[ICD9: 722.10] María Elena MARIN LucioJj TD [facility] CPT-4: 22311 12/11/2011 OFFICE/OUTPATIENT VISIT EST Diagnosis: MIGRAINE NOS/NOT INTRCBL[ICD9: 346.90] Diagnosis: SINUSITIS, ACUTE[ICD9: 461.9] María Elena JUARES LucioJj SE[facility] CPT-4: 43951 11/09/2011 OFFICE/OUTPATIENT VISIT EST Diagnosis: MIGRAINE NOS/NOT INTRCBL[ICD9: 346.90] Diagnosis: LYMPHADENOPATHY[ICD9: 785.6] María Elena Hicks TD [facility] CPT-4: 64619 09/13/2011 OFFICE/OUTPATIENT VISIT EST Diagnosis: MALAISE AND FATIGUE[ICD9: 780.79] Diagnosis: ARTHRALGIA-MULTIPLE SITES[ICD9: 719.49] María Elena REED LucioJj TD [employer] [facility] CPT-4: 59188 08/31/2011 OFFICE/OUTPATIENT VISIT EST Diagnosis: SINUSITIS, ACUTE[ICD9: 461.9] María Elena GODOYNDER DO [facility] CPT-4: 07884 07/20/2011 OFFICE/OUTPATIENT VISIT EST Diagnosis: HYPERTENSION[ICD9: 401.9] Diagnosis: PAIN, LOWER BACK[ICD9: 724.2] Diagnosis: SPASM OF MUSCLE[ICD9: 728.85] María Elena ORTAER DO [facility] CPT-4: 00734 07/06/2011 OFFICE/OUTPATIENT VISIT EST Diagnosis: MIGRAINE NOS/NOT INTRCBL[ICD9: 346.90] Diagnosis: HYPERTENSION[ICD9: 401.9] María Elena GODOY NDER DO [facility] CPT-4: 65747 05/22/2011 OFFICE/OUTPATIENT VISIT EST Diagnosis: SINUSITIS, ACUTE[ICD9: 461.9] Diagnosis: MIGRAINE NOS/NOT INTRCBL[ICD9: 346.90] Diagnosis: Dehydration[ICD9: 276.51] Diagnosis: Vomiting[ICD9: 787.03] María Elena ORTAE R DO [facility] CPT-4: 15567 05/09/2011 ([id number]) OFFICE/OUTPATIENT VISIT EST María Elena ISAAC UJARED S. ORENDER DO [facility] CPT-4: 12921 02/14/2011 ([id number]) OFFICE/OUTPATIENT VISIT EST María Elena ISAAC UELINE S. OR[facility] DO [facility] CPT-4: 20106 02/03/2011 ([id number]) OFFICE/OUTPATIENT VISIT EST María Elena ISAAC UELINE S. [facility] CPT-4: 72660 01/31/2011 ([id number]) OFFICE/OUTPATIENT VISIT EST María Elena ISAAC UELINE S. [facility] CPT-4: 45024 01/25/2011 ([id number]) OFFICE/OUTPATIENT VISIT EST María Elena ISAAC UELINE S. [facility] CPT-4: 62203 01/18/2011 ([id number]) OFFICE/OUTPATIENT VISIT EST María Elena ISAAC UELINE [facility] CPT-4: 59008 11/29/2010 ([id number]) OFFICE/OUTPATIENT VISIT, EST María Elena [facility] CPT-4: 71054 10/10/2010 ([id number]) OFFICE/OUTPATIENT VISIT, EST María Elena MONTERO QUELINE [facility] CPT-4: 82586 06/07/2010 ([id number]) OFFICE/OUTPATIENT VISIT, EST María Elena MONTERO QUELINE [facility] CPT-4: 63806 04/27/2010 ([id number]) OFFICE/OUTPATIENT VISIT, EST María Elena MONTERO QUELINE [facility] CPT-4: 93958 04/05/2010 ([id number]) OFFICE/OUTPATIENT VISIT, EST María Elena MONTERO QUELINE [facility] CPT-4: 53055 03/09/2010 ([id number]) OFFICE/OUTPATIENT VISIT, EST María Elena BRAUNLINE [facility] CPT-4: 08690 03/03/2010 ([id number]) OFFICE/OUTPATIENT VISIT, EST María Elena MONTERO QUELINE [facility] CPT-4: 52913 01/17/2010 ([id number]) PREV VISIT, EST, AGE 40-64 María Elena COLEMAN [facility] CPT-4: 23131 12/27/2009 Plan of Care Planned Activity Notes Codes Status Date Appointment: María Elena Appiah [facility] [facility] 11/26/2019 Visit Diagnosis Plan: Type 2 diabetes mellitus with hy perglycemia Discussion: Januvia 100mg daily Glimepride 2mg po BID Accuchecks BID Call in 2 weeks with BS readings Get formulary book ICD-9 : 250.02 ICD-10 : E11.65 11/20/2019 Appointment: María Elena [facility] [phone] [facility] [facility] FOLLOW UP 11/20/2019 Patient Education: glimepiride- [employer] C[employer]on [id number] Completed 11/20/2019 Patient Education: Januvia- [employer] C[employer]on [id number] Completed 11/20/2019 Visit Diagnosis Plan: Type 2 diabetes mellitus with hy perglycemia Discussion: patient tolerating glyxambi well but continues to have elevated blood sugars. sample of increased dose 25/5 was given to patient for her to take daily. will have her call in one week with blood sugar readings. ICD-9 : 250.02 ICD-10 : E11.65 10/07/2019 Visit Diagnosis Plan: Ingrowing nail Discussion: discu [...] ICD-9 : 703.0 ICD-10 : L60.0 10/07/2019 Appointment: Kathleen Zuniga [address] [place], [place] [address] OFF[facility] 10/07/2019 Visit Diagnosis Plan: DM w/o complication type II, unc ontrolled Discussion: Lab discussed Lifestyle change Trial of Glyxambi 10/5mg 1 daily Accuchecks BID BS readings in 1 week to adjust meds Patient has not tolerated metformin or onglyza in the past ICD-9 : 250.02 ICD-10 : E11.65 09/30/2019 Visit Diagnosis Plan: Essential hypertension Discussio n: Stable ICD-9 : 401.9 ICD-10 : I10 09/30/2019 Visit Diagnosis Plan: Hypertriglyceridemia Discussion: Mediterranean diet Combination of cardio and weight bearing exercise Will be adding meds but will get BS under better control first ICD-9 : 272.1 ICD-10 : E78.1 09/30/2019 Appointment: María Elena Appiah WPtel: [address] [place], [place] [phone] [place] CHECK UP 09/30/2019 Patient Education: Premarin- [employer] Coupon [id number] [email or web address]/[email or web address] Completed 09/30/2019 Appointment: María Elena Appiah WPtel: [address] [place], [place] [phone] [place] LAB 09/29/2019 Appointment: María Elena Appiah WPtel: [address] [place], [place] [phone] [place] Won't have the new insurance till [...] 05/28/2019 Appointment: María Elena Appiah WPtel: [address] [place], [place] [phone] US FOLLOW UP 05/28/2019 Appointment: María Elena Appiah WPtel: [address] [place], [place] [phone] [place] BP CHECK 05/19/2019 Visit Diagnosis Plan: Type 2 diabetes mellitus with hy perglycemia Discussion: Needs updated labs--has not done them yet--lost insurance Accuchecks daily Continue current meds ICD-9 : 250.02 ICD-10 : E11.65 01/22/2019 Visit Diagnosis Plan: Essential (primary) hypertension Discussion: Stable ICD-9 : 401.9 ICD-10 : I10 01/22/2019 Visit Diagnosis Plan: Hormone replacement therapy Disc ussion: Change premarin to estradiol for cost savings ICD-9 : V07.4 ICD-10 : Z79.890 01/22/2019 Visit Diagnosis Plan: Intervertebral dis c disorders with radiculopathy, lumbar region Discussion: Stable on Hydrocodone UDS do ne today Follow Up: 3 months ICD-9 : 722.10 ICD-10 : M51.16 01/22/2019 Appointment: María Elena Appiah WPtel: [address] [place], [place] [phone] US FOLLOW UP 01/22/2019 Patient Education: estradiol- [employer] Coupon [id number] [email or web address]/getResource/[email or web address] Completed 01/22/2019 Appointment: María Elena Appiah WPtel: [address] [place] [address] US CANCELED 01/20/2019 Appointment: María Elena Appiah WPtel: [address] [place] [address] US LM NO SHOW 01/06/2019 Appointment: María Elena Appiah WPtel: [address] [place] [address] US CANCELED 10/17/2018 Appointment: María Elena Appiah WPtel: [address] [place] [address] US BP CHECK 10/09/2018 Visit Diagnosis Plan: [...] I10 09/30/2018 Appointment: María Elena Appiah WPtel: [address] [place], [place] [address] US FOLLOW UP 09/30/2018 Visit Diagnosis Plan: [...] F51.01 08/27/2018 Appointment: María Elena Appiah WPtel: [address] [place] [address] ACUTE ILLNESS 08/27/2018 Appointment: María Elena Appiah WPtel: [address] [place] [address] [place] Patient stated she went out to [...] Tyle... 08/09/2018 Appointment: María Elena Appiah WPtel: [address] [place], [place] [phone] ACUTE ILLNESS 08/09/2018 Appointment: María Elena Appiah WPtel: [address] [place], [place] [phone] [place] NO SHOW 08/08/2018 Visit Diagnosis Plan: [...] B35.4 07/22/2018 Appointment: María Elena Appiah WPtel: [address] [place] [address] ACUTE ILLNESS 07/22/2018 Appointment: María Elena Appiah WPtel: [address] [place] [address] US INJECTION 06/19/2018 Patient Education: Patient Medication [...] ICD-10 : L03.031 06/17/2018 Appointment: Kathleen Zuniga [address] [place] [address] ACUTE ILLNESS 06/17/2018 Patient Education: Patient Medication [...] : B02.9 05/16/2018 Appointment: Kathleen Zuniga [address] [place] [address] ACUTE ILLNESS 05/16/2018 Patient Education: Patient Medication [...] ICD-10 : L03.115 03/20/2018 Appointment: Kathleen Zuniga [address] [place] [address] FOLLOW UP 03/20/2018 Patient Education: Patient Medication [...] ICD-10 : L03.115 03/18/2018 Appointment: Kathleen Zuniga [address] [place], [place] [address] FOLLOW UP 03/18/2018 Patient Education: Patient Medication [...] ICD-10 : L03.115 03/15/2018 Appointment: Kathleen Zuniga [address] [place], [place] [address] ACUTE ILLNESS 03/15/2018 Patient Education: Patient Medication [...] ICD-10 : J01.90 02/11/2018 Appointment: Kathleen Zuniga [address] [place] [address] ACUTE ILLNESS 02/11/2018 Patient Education: Patient Medication Summary Completed 02/11/2018 Appointment: María Elena Appiah WPtel: [phone] [facility] INJECTION 02/01/2018 Patient Education: Patient [...] ICD-10 : M51.16 01/30/2018 Appointment: Kathleen Zuniga [address] [place], [place] [address] ACUTE ILLNESS 01/30/2018 Patient Education: Patient Medication Summary Completed 01/30/2018 Patient Education: Lyrica - 18+ - No HI MA NE TN Completed 01/30/2018 Visit Diagnosis Plan: Varicose veins of bilateral lower extremities with other complications Discussion: Has had normal ABIs but will see CV surgery to assess arteries and veins ICD-9 : 454.8 ICD-10 : I83.893 12/18/2017 Visit Diagnosis Plan: Mixed hyperlipidemia Discussion: diet/exercise/weight loss and recheck in 6mos ICD-9 : 272.4 ICD-10 : E78.2 12/18/2017 Visit Diagnosis Plan: Essential (primary) hypertension Discussion: Stable ICD-9 : 401.9 ICD-10 : I10 12/18/2017 Visit Diagnosis Plan: Type 2 diabetes mellitus with hy perglycemia Discussion: Start onglyza 2.5mg po daily for 2 weeks then 5mg po daily Accuchecks daily alternating times Defers diabetes education Discussed diabetic diet and exercise Check CMP and HbA1C in 3mos then fwup ICD-9 : 250.02 ICD-10 : E11.65 12/18/2017 Appointment: María Elena Appiah WPtel: [address] [place], [place] [phone] Annual Well Visit 12/18/2017 Patient Education: Patient Medication Summary Completed 12/18/2017 Care Plan: Referral Order SNOMED-CT : [phone] [id number] Pending 12/18/2017 Appointment: María Elena Appiah WPtel: [phone] [facility] [place] INJECTION 12/10/2017 Patient Education: Patient Medication Summary Completed 12/10/2017 Visit Diagnosis Plan: Cellulitis of right toe [...] ICD-9 : 681.10 ICD-10 : L03.031 12/07/2017 Visit Diagnosis Plan: Acute sinusitis, unspecified Dis cussion: rocephin to cover for sinus infection also. 6 mg dexa given to patient. ICD-9 : 461.9 ICD-10 : J01.90 12/07/2017 [facility] [facility] 12/07/2017 Patient Education: Patient Medication [...] : J01.00 10/08/2017 Appointment: Kathleen Zuniga [address] [facility] ACUTE ILLNESS 10/08/2017 Patient Education: Patient Medication Summary Completed 10/08/2017 Appointment: María Elena Appiah WPtel: [phone] [facility] INJECTION 09/21/2017 Patient Education: Patient Medication Summary [...] : R06.83 09/20/2017 Appointment: Kathleen Zuniga [address] [facility] ACUTE ILLNESS 09/20/2017 Patient Education: Patient [...] ICD-10 : L60.0 08/29/2017 Appointment: Kathleen Zuniga [address] [place], [place] [id number] OFFICE SURGERY 08/29/2017 Patient Education: Patient Medication Summary Completed 08/29/2017 Visit Diagnosis Plan: Actinic keratosis Discussion: Cr yotherapy as above ICD-9 : 702.0 ICD-10 : L57.0 08/01/2017 Appointment: María Elena Appiah WPtel: [address] [place], [place] [phone] OFFICE SURGERY 08/01/2017 Patient Education: Patient Medication Summary Completed 08/01/2017 Appointment: María Elena Appiah WPtel: [facility] [place] [id number] PATIENT THOUGHT APPOINTMENT WAS TOMORROW 07/26/17 CALLED 15 MINUTES BEFORE APPT TO SAY SHE DIDN'T HAVE ANYONE TO COVER HER BUSINESS AND WOULD NOT MAKE IT NO SHOW 07/25/2017 Visit Diagnosis Plan: Cellulitis of left toe Discussio n: Clindamycin and notify if worsening or persistis ICD-9 : 681.10 ICD-10 : L03.032 07/19/2017 Appointment: María Elean Appiah WPtel: [address] [place] [address] MEDICATION REVIEW 07/19/2017 Patient Education: Patient Medication Summary Completed 07/19/2017 Appointment: María Elena Appiah WPtel: [address] [place] [address] [place] CANCELED 07/04/2017 Visit Diagnosis Plan: Chronic sinusitis, unspecified D iscussion: Referral sent to dr. albarado in [place] per patient request. patient has been treated multiple times for sinus infections with no recovery. patient was seen by dr sanchez in the past with no interventions. patient has deviated septum which may be affecting her sinuses. ICD-9 : 473.9 ICD-10 : J32.9 06/27/2017 Visit Diagnosis Plan: Generalized hyperhidrosis Discus ian: CBC, CMP, TSH, free T4 ordered to assess. will review labs. 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, including hip Discussion: Shave removal of above lesio n--sent to pathology ICD-9 : 216.7 ICD-10 : D23.72 01/24/2017 Appointment: María Elena Appiah WPtel: [address] [place], [place] [id number] 01/23 confirmed ~sl OFFICE SURGERY 01/24/2017 Patient Education: Patient Medication Summary Completed 01/24/2017 Appointment: Loan Sánchez [address] [place], [place] [id number] 01/09 rescheduled~sl RESCHEDULED 01/15/2017 Visit Diagnosis Plan: Primary insomnia Discussion: Dis cussed Belsomra but at this time patient wants to hold on trying any new meds and would like to try to decrease meds ICD-9 : 780.52 ICD-10 : F51.01 12/13/2016 Visit Diagnosis Plan: Other melanin hyperpigmentation Discussion: Monitor/Observe Sunscreen ICD-9 : 709.09 ICD-10 : L81.4 12/13/2016 Visit Diagnosis Plan: Localized edema Discussion: Reich ge metolazone to lasix with potassium prn ICD-9 : 782.3 ICD-10 : R60.0 12/13/2016 Appointment: María Elena Appiah WPtel: [address] [place], [place] [id number] 12/12 confirmed ~sl MEDICATION REVIEW 12/13/2016 Patient Education: Patient Medication Summary Completed 12/13/2016 Appointment: María Elena Appiah WPtel: [address] [place], [place] [id number] [place] rescheduled for 12/13/16 at 11am RESCHEDULED 0 12/06/2016 Appointment: María Elena Appiah WPtel: [address] [place], [place] [id number] [place] CANCELED 11/23/2016 Patient Education: Patient Medication Summary Completed 11/23/2016 Patient Education: Patient Medication Summary Completed 11/17/2016 Visit Diagnosis Plan: Primary insomnia Discussion: Sta rt elavil 25mg q HS for 1 week with xanax 1mg then increase elavil to 50mg q HS with 0.5mg xanax week 2 then continue elavil at 50mg q HS and DC xanax Follow Up: 4 weeks ICD-9 : 780.52 ICD-10 : F51.01 11/01/2016 Visit Diagnosis Plan: Cyanosis Discussion: Proceed wit h ABIs as ordered back in fall ICD-9 : 782.5 ICD-10 : R23.0 11/01/2016 Appointment: María Elena Appiah WPtel: [address] [facility] [place] 10/31 lm `sl 11/01 lm`sl MEDICATION REVIEW 017 Patient Education: Patient Medication Summary Completed 11/01/2016 Referral: Canelo Overton WPtel: [address] [id number] [place] Referral Initiated 10/30/2016 Visit Diagnosis Plan: Encounter for gyne cological examination (general) (routine) without abnormal findings Discussion: Speculum and Bimanual exam d one Mammogram ordered ICD-9 : V72.31 ICD-10 : Z01.419 10/17/2016 Visit Diagnosis Plan: Encounter for rout ine child health examination without abnormal findings Discussion: Lab up to date Referral for colonoscopy Follow Up: 6 months ICD-9 : V20.2 ICD-10 : Z00.129 10/17/2016 App[facility]ment: [facility] [facility] [facility] 10/16 confirmed ~sl PAP 10/17/2016 Patient Education: Patient Medication Summary Completed 10/17/2016 Care Plan: MAMMOGRAM SCREENING LOINC : 2 6347-5 Pending 10/17/2016 Visit Diagnosis Plan: Other seasonal allergic rhinitis Discussion: Decadron/Garamycin Nasal [place] Mix Too soon for steroid Retry zyrtec 10mg daily ICD-9 : 477.9 ICD-10 : J30.2 10/10/2016 Appointment: María Elena Appiah WPtel: [address] [place], [place] [id number] FOLLOW UP 10/10/2016 Patient Education: Patient Medication Summary Completed 10/10/2016 Appointment: María Elena Appiah WPtel: [address] [place], [place] [id number] 10/02 reschedule `sl RESCHEDULED 10/02/2016 Visit Plan: See surgery for removal of n ew left arm lesion and right foot lesion Lyrica to use next month for left arm paresthesias Continue current meds Discussed sunscreen/sunblock combo 09/19/2016 Appointment: María Elena Appiah WPtel: [address] [place], [place] [id number] 09/18 confirmed ~sl FOLLOW UP 09/19/2016 Patient Education: Patient Medication Summary Completed 09/19/2016 Patient Education: Patient Medication Summary Completed 09/18/2016 Care Plan: MAMMOGRAM BOTH BREASTS LOINC : 88761-4 Pending 09/18/2016 Visit Plan: Discussed that needs [...] sinuses 08/24/2016 Appointment: María Elena Appiah WPtel: [address] [place], [place] [id number] ACUTE ILLNESS 08/24/2016 Patient Education: Patient Medication Summary Completed 08/24/2016 Patient Education: Patient Medication Summary Completed 08/23/2016 Care Plan: MAMMOGRAM SCREENING LOINC : 2 6347-5 Pending 08/23/2016 Visit Plan: Finish doxycycline Add Breo 100/25 1 p BID for 2 weeks If not improving within next 2 days will get CXR 08/16/2016 Appointment: María Elena Appiah WPtel: [address] [place] [address] ACUTE ILLNESS 08/16/2016 Patient Education: Patient Medication Summary Completed 08/16/2016 Visit Plan: Supportive care. Rest, Fluid s, Tylenol/Motrin prn fever or bodyaches. Notify if worsening symptoms. Doxycyline and Prednisone 08/10/2016 Appointment: María Elena Appiah WPtel: [address] [place] [address] 08/09 lm`sl....confirmed-sp FOLLOW UP 09/2015 Patient Education: Patient Medication Summary Completed 08/10/2016 Visit Plan: Saline nasal flushes prn. Ty lenol/Motrin prn headache. Notify if persists/symptoms worsening. Dexamethasone 8mg IM today May use coricedan and mucinex 08/02/2016 Appointment: María Elena Appiah WPtel: [address] [place] [address] ACUTE ILLNESS 08/02/2016 Patient Education: Patient Medication Summary Completed 08/02/2016 Visit Plan: Cryotherapy as above and lef t forearm lesion removal as above with 5-0 punch biopsy and sent to path Return in 10 days for suture removal 08/01/2016 Appointment: María Elena Appiah WPtel: [address] [place] [address] 07/31 confirmed`~sl OFFICE SURGERY 08/01/2016 Patient Education: Patient Medication Summary Completed 08/01/2016 Visit Plan: Stop clindamycin Check CBC, CMP, ESR now/STAT 07/27/2016 Appointment: María Elena Appiah WPtel: [address] [place] [address] ACUTE ILLNESS 07/27/2016 Patient Education: Patient Medication Summary Completed 07/27/2016 Visit Plan: Update lab and check ABIs to start with Will likely need cardiology evaluation to rule out PVD Clindamycin for 10 days Daily yogurt or probiotic Will return for removal of left arm lesions 07/20/2016 Appointment: María Elena Appiah WPtel: [address] [place], [place] [address] [place] ACUTE ILLNESS 07/20/2016 Patient Education: Patient Medication Summary Completed 07/20/2016 Patient Education: Patient Medication Summary Completed 07/20/2016 Care Plan: MAMMOGRAM BOTH BREASTS LOINC : 22194-6 Pending 07/20/2016 Care Plan: US EXAM CHEST LOINC : 90657-6 Pending 07/20/2016 Visit Plan: Wound culture collected from left great toe Appearance is somewhat staph like Rx as above Wound cleanser and skin care reviewed May need to add oral antibiotic if sores do not heal or continue to reoccur 07/06/2016 Appointment: Loan Sánchez [address] [place] [address] ACUTE ILLNESS 07/06/2016 Patient Education: Patient Medication Summary Completed 07/06/2016 Appointment: María Elena Appiah WPtel: [address] [place] [address] US INJECTION 05/25/2016 Patient Education: Patient Medication Summary Completed 05/25/2016 Visit Plan: Saline nasal flushes prn. Ty lenol/Motrin prn headache. Notify if persists/symptoms worsening. Dexamethasone and Rocephin given 04/26/2016 Appointment: María Elena Appiah WPtel: [address] [place] [address] ACUTE ILLNESS 04/26/2016 Patient Education: Patient Medication Summary Completed 04/26/2016 Visit Plan: Check CBC, CMP, TSH, FreeT4, HbA1C, estradiol, lipids in AM 03/02/2016 Appointment: María Elena Appiah WPtel: [address] [place] [address] 03/01 lm~sl ACUTE ILLNESS 03/02/2016 Patient Education: Patient Medication Summary Completed 03/02/2016 Visit Plan: Exam is nearly normal Needs to be taking daily antihistamine Would prefer to use oral steroids instead of shot but patient insist that oral steroids cause horrible headaches for her Will given kenalog IM instead 02/09/2016 Appointment: Loan Sánchez [address] [place] [address] ACUTE ILLNESS 02/09/2016 Patient Education: Patient Medication Summary Completed 02/09/2016 Visit Plan: Culture urine Macrobid DC xa nax Trial of Ativan 1mg q HS 01/24/2016 Appointment: María Elena Appiah WPtel: [address] [place] [address] ACUTE ILLNESS 01/24/2016 Patient Education: Patient Medication Summary Completed 01/24/2016 Visit Plan: No steroid or rocephin injec tion warranted Can have oral prednisone Continue current home regimen Needs to follow up with Dr Sanchez if problems persist 12/23/2015 Appointment: Loan Sánchez [address] [place] [address] ACUTE ILLNESS 12/23/2015 Patient Education: Patient Medication Summary Completed 12/23/2015 Visit Plan: Saline nasal flushes prn. Ty lenol/Motrin prn headache. Notify if persists/symptoms worsening. Kenalog 40mg IM today 12/08/2015 Appointment: María Elena Appiah WPtel: [address] [place] [address] 12/06 confirmed~ ACUTE ILLNESS 12/08/2015 Patient Education: Patient Medication Summary Completed 12/08/2015 Appointment: María Elena Appiah WPtel: [address] [place] [address] ACUTE ILLNESS 11/18/2015 Patient Education: Patient Medication Summary Completed 10/11/2015 Appointment: María Elena Appiah WPtel: [address] [place] [address] [place] INJECTION 10/07/2015 Patient Education: Patient Medication Summary Completed 10/07/2015 Visit Plan: Check renal arterial doppler s and ECHO Change amlodopine to lotrel 5/20mg q HS Will need stress test as well Check CMP, uric acid, ESR 10/06/2015 Appointment: María Elena Appiah WPtel: [address] [place] [address] ACUTE ILLNESS 10/06/2015 Patient Education: Patient Medication Summary Completed 10/06/2015 Patient Education: [facility] - [employer] - Amlodipine Besylate - 18-64 - Dynamic Portal ID Completed 10/06/2015 Appointment: María Elena Appiah WPtel: [address] [place], [place] [phone] [place] FOLLOW UP 09/22/2015 Visit Plan: Cephalexin 500 mg PO bid Mery ly topical Mupirocin to lesions on left lateral neck and face Follow-up in one week. Sooner if symptoms worsen 09/14/2015 Appointment: June Flores WPtel: [address] [place], [place] [id number] ACUTE ILLNESS 09/14/2015 Patient Education: Patient Medication Summary Completed 09/14/2015 Visit Plan: Change bystolic to bedtime d osing and amlodopine to morning dosing Cryotherapy as above to AKs 09/07/2015 Appointment: María Elena Appiah WPtel: [address] [place] [address] 09/06 appointment made and confirmed ~ FOLLOW UP 09/07/2015 Patient Education: Patient Medication Summary Completed 09/07/2015 Visit Plan: Increase bystolic back to 20 mg daily but will split and take 10mg in AM and 10mg in PM Stress Reducers 08/18/2015 Appointment: María Elena Appiah WPtel: [address] [place], [place] [id number] 08/17/15 appt confirmed cn ACUTE ILLNESS 08/18 Patient Education: Patient Medication Summary Completed 08/18/2015 Appointment: María Elena Appiah WPtel: [address] [place], [place] [phone] BP CHECK 07/07/2015 Patient Education: Patient Medication Summary Completed 07/07/2015 Appointment: María Elena Appiah WPtel: [address] [place] [address] BP CHECK 06/24/2015 Patient Education: Patient Medication Summary Completed 06/24/2015 Appointment: María Elena Appiah WPtel: [address] [place] [address] BP CHECK 06/21/2015 Patient Education: Patient Medication Summary Completed 06/21/2015 Visit Plan: Lab discussed Continue curre nt meds and lifestyle modification Recheck lab in 6mos 06/16/2015 Appointment: María Elena Appiahtel: [address] [place] [address] 06/15 confirmed FOLLOW UP 06/16/2015 Patient Education: Patient Medication Summary Completed 06/16/2015 Patient Education: Patient Medication Summary Completed 06/15/2015 Visit Plan: Increase cymbalta to 60mg q HS Keep clonidine at current dose Recheck 2weeks Change xanax to klonopin 06/02/2015 Appointment: María Elena Appiah WPtel: [address] [place] [address] 06/02 lm FOLLOW UP 06/02/2015 Patient Education: Patient Medication Summary Completed 06/02/2015 Appointment: María Elena Appiah WPtel: [address] [place] [address] ACUTE ILLNESS 05/24/2015 Visit Plan: Increase clonidine to 0.2mg q HS Add cymbalta 30mg q HS Recheck 2weeks Stress Reducers Check fasting lab Discussed sleep study 05/20/2015 Appointment: María Elena Appiah WPtel: [address] [place] [address] ACUTE ILLNESS 05/20/2015 Patient Education: Patient Medication Summary Completed 05/20/2015 Patient Education: [facility] - [employer] - Cymbalta - 18-64 - Dynamic Portal ID Completed 05/20/2015 Appointment: María Elena Appiah WPtel: [address] [place] [address] BP CHECK 05/19/2015 Patient Education: Patient Medication Summary Completed 05/19/2015 Visit Plan: Topical Bactroban alternatin g with topical betamethasone Recheck 2weeks 05/10/2015 Appointment: María Elena Appiah WPtel: [address] [place] [address] 05/07 vm cn...05/07 appt confirmed OFFICE SURGER Y 05/10/2015 Patient Education: Patient Medication Summary Completed 05/10/2015 Referral: Patrick Chandler WPtel: [address] [id number] [place] Referral Initiated 05/04/2015 Visit Plan: Saline nasal flushes prn. Ty lenol/Motrin prn headache. Notify if persists/symptoms worsening. Depomedrol 40mg IM today 03/16/2015 Appointment: María Elena Appiah WPtel: [address] [place] [address] ACUTE ILLNESS 03/16/2015 Patient Education: Patient Medication Summary Completed 03/16/2015 Appointment: María Elena Appiah WPtel: [address] [place] [address] ER Follow UP 03/09/2015 Visit Plan: Cryotherapy to lesions as ab ove 10/27/2014 Appointment: María Elena Appiah WPtel: [address] [place] [address] OFFICE SURGERY 10/27/2014 Patient Education: Patient Medication Summary Completed 10/27/2014 Appointment: June Flores WPtel: [address] [place], [place] [id number] ACUTE ILLNESS 09/11/2014 Patient Education: Patient Medication Summary Completed 09/11/2014 Visit Plan: Lab discussed Lipitor 10mg d aily Coenzyme Q-10 400mg daily Vitamin D3 5000u daily Recheck lipids with LFTs in 3mos then fwup 08/31/2014 Appointment: María Elena Appiah WPtel: [address] [place] [address] 08/28 voicemail FOLLOW UP 08/31/2014 Patient Education: Patient Medication Summary Completed 08/31/2014 Appointment: María Elena Appiah WPtel: [address] [place], [place] [phone] [place] LAB 08/27/2014 Appointment: María Elena Appiah WPtel: [address] [place], [place] [phone] [place] LAB 08/27/2014 Patient Education: Patient Medication Summary Completed 08/27/2014 Appointment: María Elena Appiah WPtel: [address] [place], [place] [id number] ACUTE ILLNESS 07/23/2014 Appointment: María Elena Appiah WPtel: [address] [place] [address] ACUTE ILLNESS 07/21/2014 Patient Education: Patient Medication Summary Completed 07/21/2014 Visit Plan: Kenalog 40mg IM today Contin ue narendra and singulair Add Flonase 07/15/2014 Appointment: María Elena Appiah WPtel: [address] [place] [address] ACUTE ILLNESS 07/15/2014 Appointment: María Elena Appiah WPtel: [address] [place] [address] ACUTE ILLNESS 07/15/2014 Patient Education: Patient Medication Summary Completed 07/15/2014 Visit Plan: Will do metolazone 2.5mg prn with 6 potassium and see if causes as severe cramping Trial of of seroquel XR 50mg q PM with evening meal and let us know how works 05/18/2014 Appointment: María Elena Appiah WPtel: [address] [place], [place] [id number] 05/15 left message FOLLOW UP 05/18/2014 Patient Education: Patient Medication Summary Completed 05/18/2014 Appointment: María Elena Appiah WPtel: [address] [place], [place] [phone] [place] LAB 05/14/2014 Patient Education: Patient Medication Summary Completed 05/14/2014 Appointment: María Elena Appiah WPtel: [address] [place] [phone] [place] INJECTION 04/22/2014 Visit Plan: Kimo and Miranda today a nd finish abx given from urgent care 04/21/2014 Appointment: María Elena Appiah WPtel: [address] [place] [address] US INJECTION 04/21/2014 Patient Education: Patient Medication Summary Completed 04/21/2014 Appointment: June Flores WPtel: [address] [place] [address] ACUTE ILLNESS 03/04/2014 Patient Education: Patient Medication Summary Completed 03/04/2014 Appointment: María Elena Appiah WPtel: [address] [place] [address] INJECTION 02/27/2014 Patient Education: Patient Medication Summary Completed 02/27/2014 Visit Plan: Cryotherapy as above to all lesions Patient wants to try no meds for insomnia for a while and see how goes 01/13/2014 Appointment: María Elena Appiah WPtel: [address] [place] [address] OFFICE SURGERY 01/13/2014 Patient Education: Patient Medication Summary Completed 01/13/2014 Visit Plan: Stop Melatonin Stop Soma Tri al of trazadone 75mg q HS See ENT for possible tubes as has had chronic ETD and serous otitis media with numerous steroids 12/24/2013 Appointment: María Elena Appiah WPtel: [address] [place] [address] ACUTE ILLNESS 12/24/2013 Patient Education: Patient Medication Summary Completed 12/24/2013 Visit Plan: Saline nasal flushes prn. Ty lenol/Motrin prn headache. Notify if persists/symptoms worsening. 11/12/2013 Appointment: María Elena Appiah WPtel: [address] [place] [address] ACUTE ILLNESS 11/12/2013 Patient Education: Patient Medication Summary Completed 11/12/2013 Appointment: María Elena Appiah WPtel: [address] [place], [place] [phone] ACUTE ILLNESS 10/21/2013 Patient Education: Patient Medication Summary Completed 10/21/2013 Visit Plan: Sleep hygiene and sleep rout ine Melatonin 10mg q HS Support stockings and observe 09/22/2013 Appointment: María Elena Appiah WPtel: [address] [place], [place] [id number] ACUTE ILLNESS 09/22/2013 Patient Education: Patient Medication Summary Completed 09/22/2013 Appointment: June Flores WPtel: [address] [place], [place] [id number] ACUTE ILLNESS 08/27/2013 Patient Education: Patient Medication Summary Completed 08/27/2013 Visit Plan: Proceed with CT scan of head /neck Proceed with occipital nerve injections Butrans 20mcg patch weekly until can get into see Dr. Mcdonough for injections 08/04/2013 Appointment: María Elena Appiah WPtel: [address] [place] [address] FOLLOW UP 08/04/2013 Patient Education: Patient Medication Summary Completed 08/04/2013 Visit Plan: OMT done Daily neck stretche s, moist heat Increase Celebrex to 200mg BID Add flexeril 07/23/2013 Appointment: MaríaE lena Appiah WPtel: [address] [place], [place] [phone] 07/22 voicemail FOLLOW UP 07/23/2013 Patient Education: Patient Medication Summary Completed 07/23/2013 Appointment: María Elena Appiah WPtel: [address] [place], [place] [phone] ACUTE ILLNESS 06/23/2013 Patient Education: Patient Medication Summary Completed 06/23/2013 Appointment: María Elena Appiah WPtel: [address] [place] [address] ACUTE ILLNESS 05/26/2013 Patient Education: Patient Medication Summary Completed 05/26/2013 Visit Plan: Decrease clonidine to 0.1mg TID If BP remains stable consider decreasing amlodopine Prednisone for 5 days BP check in 1mo 04/16/2013 Appointment: María Elena Appiah WPtel: [address] [place] [address] 04/14 pt called and confirmed appt FOLLOW UP 04/16/2013 Patient Education: Patient Medication Summary Completed 04/16/2013 Appointment: María Elena Appiah WPtel: [address] [place] [address] ACUTE ILLNESS 03/05/2013 Patient Education: Patient Medication Summary Completed 03/05/2013 Visit Plan: Pt has MARIA ELENA on with Dr. Mcdonough Continue Butrans patch Refill Hydrocodone early tomorrow 12/23/2012 Appointment: María Elena Appiah WPtel: [address] [place] [address] FOLLOW UP 12/23/2012 Patient Education: Patient Medication Summary Completed 12/23/2012 Appointment: Lashawn Eckert WPtel: [address] [place] [address] ACUTE ILLNESS 12/16/2012 Patient Education: Patient Medication Summary Completed 12/16/2012 Visit Plan: Proceed with updated MRI of LS spine Continue gabapentin and add soma and diclofenac Will likely need to go for another epidural 12/09/2012 Appointment: María Elena Appiah WPtel: [address] [place] [address] ACUTE ILLNESS 12/09/2012 Patient Education: Patient Medication Summary Completed 12/09/2012 Visit Plan: Injection as above Finish me drol dose pack Chiropracter this afternoon 12/04/2012 Appointment: María Elena Appiah WPtel: [address] [place] [address] ACUTE ILLNESS 12/04/2012 Patient Education: Patient Medication Summary Completed 12/04/2012 Appointment: Mary Tillman WPtel: [address] [place] [address] FOLLOW UP 11/22/2012 Patient Education: Patient Medication Summary Completed 11/22/2012 Appointment: María Elena Appiah WPtel: [address] [place] [address] ACUTE ILLNESS 11/21/2012 Patient Education: Patient Medication Summary Completed 11/21/2012 Appointment: María Elena Appiah WPtel: [address] [place] [address] [place] BP CHECK 11/07/2012 Patient Education: Patient Medication Summary Completed 11/07/2012 Visit Plan: reports extra clonidine and extra amlodipine and extra alprazalam. extra Ketolorac and promethazine last night. Bystolic 10 mg QAM and will continue all other blood pressure meds. Pt. encouraged to rest and hydrate. Discussed stroke and GA symptoms. Pt. instructed to seek ER eval if symptoms worsen or headache persists. Pt. agrees to ER eval/EMS transport if symptoms worsen. BP re-check. 10/29/2012 Appointment: Lashawn Eckert WPtel: [address] [place] [address] ACUTE ILLNESS 10/29/2012 Patient Education: Patient Medication Summary Completed 10/29/2012 Appointment: María Elena Appiah WPtel: [address] [place] [address] ACUTE ILLNESS 10/14/2012 Patient Education: Patient Medication Summary Completed 10/14/2012 Appointment: María Elena Appiah WPtel: [address] [place] [address] UA 09/27/2012 Patient Education: Patient Medication Summary Completed 09/27/2012 Appointment: María Elena Appiah WPtel: [address] [place] [address] ACUTE ILLNESS 09/25/2012 Patient Education: Patient Medication Summary Completed 09/25/2012 Appointment: María Elena Appiah WPtel: [address] [place] [address] BP CHECK 09/24/2012 Appointment: María Elena Appiah WPtel: [address] [place], [place] [phone] ACUTE ILLNESS 08/29/2012 Patient Education: Patient Medication Summary Completed 08/29/2012 Visit Plan: Cryotherapy as above See Karlos m for right ear lesion--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 ACUTE ILLNESS 05/06/2012 Patient Education: Patient Medication Summary Completed 05/06/2012 Visit Plan: Pt wants to hold on any furt her sleep medications 04/03/2012 Appointment: María Elena Appiah WPtel: [address] [place], [place] [phone] FOLLOW UP 04/03/2012 Patient Education: Patient Medication Summary Completed 04/03/2012 Appointment: María Elena Appiah WPtel: [address] [place], [place] [phone] FOLLOW UP 03/19/2012 Patient Education: Patient Medication Summary Completed 03/19/2012 Appointment: María Elena Appiah WPtel: [address] [place], [place] [phone] BP CHECK 02/22/2012 Patient Education: Patient Medication Summary Completed 02/22/2012 Appointment: María Elena Appiah WPtel: [address] [place], [place] [phone] BP CHECK 02/21/2012 Patient Education: Patient Medication Summary Completed 02/21/2012 Visit Plan: Doxycycline and bactroban fo r foot Supportive care on ankles and knees Add norvasc for BP 02/20/2012 Appointment: María Elena Appiah WPtel: [address] [place] [address] ER Follow UP 02/20/2012 Patient Education: Patient Medication Summary Completed 02/20/2012 Appointment: María Elena Appiah WPtel: [address] [place] [address] ACUTE ILLNESS 01/30/2012 Patient Education: Patient Medication Summary Completed 01/30/2012 Appointment: María Elena Appiah WPtel: [address] [place] [address] ACUTE ILLNESS 01/24/2012 Patient Education: Patient Medication Summary Completed 01/24/2012 Visit Plan: Daily back stretches, moist heat, Biofreeze prn OMT done 01/10/2012 Appointment: María Elena Appiah WPtel: [address] [place] [address] ACUTE ILLNESS 01/10/2012 Patient Education: Patient Medication Summary Completed 01/10/2012 Appointment: María Elena Appiah WPtel: [address] [place] [address] FOLLOW UP 12/11/2011 Patient Education: Patient Medication Summary Completed 12/11/2011 Appointment: María Elena Appiah WPtel: [address] [place] [address] ACUTE ILLNESS 11/09/2011 Patient Education: Patient Medication Summary Completed 11/09/2011 Appointment: María Elena Appiah WPtel: [address] [place] [address] ACUTE ILLNESS 09/13/2011 Patient Education: Patient Medication Summary Completed 09/13/2011 Visit Plan: Check CBC, TSH, Free T4, CMP , ESR, Vit D, B12 now Start Prednisone today 08/31/2011 Appointment: María Elena Appiah WPtel: [address] [place] [address] ACUTE ILLNESS 08/31/2011 Patient Education: Patient Medication Summary Completed 08/31/2011 Appointment: María Elena Appiahtel: [address] [place], [place] [phone] [place] INJECTION 07/20/2011 Patient Education: Patient Medication Summary Completed 07/20/2011 Visit Plan: Continue current meds Monite r BP Cont stretches from PT 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 07/06/2011 Appointment: María Elena Appiah WPtel: [address] [place] [address] [place] FOLLOW UP 07/06/2011 Patient Education: Patient Medication Summary Completed 07/06/2011 Appointment: María Elena Appiahtel: [address] [place] [address] [place] BP CHECK 06/06/2011 Patient Education: Patient Medication Summary Completed 06/06/2011 Visit Plan: Add Bystolic at 2.5mg QAM Ad d Robaxin 750mg 2 po q HS BP check in 2wks 05/22/2011 Appointment: María Elena Appiahtel: [address] [place] [address] FOLLOW UP 05/22/2011 Patient Education: Patient Medication Summary Completed 05/22/2011 Appointment: María Elena Appiahtel: [address] [place], [place] [id number] Follow UP 05/09/2011 Patient Education: Patient Medication Summary Completed 05/09/2011 Appointment: María Elena Appiahtel: [address] [place], [place] [phone] [place] FOLLOW UP 02/22/2011 Visit Plan: Rx written for Hydrocodone 1 0/325mg #240 See Ortho 02/14/2011 Appointment: María Elena Appiahtel: [address] [place], [place] [phone] OMT 02/14/2011 Patient Education: Patient Medication Summary [...] lab work. 02/03/2011 Appointment: Lashawn Eckert WPtel: [address] [place] [address] ACUTE ILLNESS 02/03/2011 Patient Education: Patient Medication Summary Completed 02/03/2011 Visit Plan: OMT done Cont daily stretche s 01/31/2011 Appointment: María Elena Appiah WPtel: [address] [place] [address] ACUTE ILLNESS 01/31/2011 Patient Education: Patient Medication Summary Completed 01/31/2011 Visit Plan: Continue pain meds OMT done Proceed with PT No work this summer01/25/2011 Appointment: María Elena Appiah WPtel: [address] [place] [address] ACUTE ILLNESS 01/25/2011 Patient Education: Patient Medication Summary Completed 01/25/2011 Visit Plan: Start PT Long discussion abo ut getting pain meds from only us and can only have max of 4grams of tylenol per day Change to Hydrocodone 10/325mg 1- 2 po TID prn pain--#180 called to Radha 01/18/2011 Appointment: María Elena Appiah WPtel: [address] [place] [address] FOLLOW UP 01/18/2011 Patient Education: Patient Medication Summary Completed 01/18/2011 Visit Plan: Daily back stretches, moist heat, Biofreeze prn 11/29/2010 Appointment: María Elena Appiah WPtel: [address] [place] [address] ER Follow UP 11/29/2010 Patient Education: Patient Medication Summary Completed 11/29/2010 Visit Plan: Saline nasal flushes prn. Ty lenol/Motrin prn headache. Notify if persists/symptoms worsening. Finish augmentin Add Medrol Dose Pack 10/10/2010 Appointment: María Elena Appiah WPtel: [address] [place] [address] ACUTE ILLNESS 10/10/2010 Patient Education: Patient Medication Summary Completed 10/10/2010 Visit Plan: Cryotherapy x3 to multiple l esions on both forearms 07/19/2010 Appointment: María Elena Appiah WPtel: [address] [place] [address] OFFICE SURGERY 07/19/2010 Patient Education: Patient Medication Summary Completed 07/19/2010 Appointment: María Elena Appiahtel: [address] [place] [address] BP CHECK 07/06/2010 Patient Education: Patient Medication Summary Completed 07/06/2010 Appointment: María Elena Appiahtel: [address] [place] [address] BP CHECK 06/30/2010 Patient Education: Patient Medication Summary Completed 06/30/2010 Appointment: María Elena Appiahtel: [address] [place] [address] BP CHECK 06/20/2010 Patient Education: Patient Medication Summary Completed 06/20/2010 Visit Plan: Change Diovan to Exforge 160 /5mg QD OMT done to thoracics BP check in 2wks 06/07/2010 Appointment: María Elena Appiah WPtel: [address] [place] [address] [place] FOLLOW UP 06/07/2010 Patient Education: Patient Medication Summary Completed 06/07/2010 Appointment: María Elena Appiah WPtel: [address] [place] [address] BP CHECK 06/03/2010 Patient Education: Patient Medication Summary Completed 06/03/2010 Appointment: María Elena Appiah WPtel: [address] [place] [address] BP CHECK 06/01/2010 Patient Education: Patient Medication Summary Completed 06/01/2010 Visit Plan: Irritated skin tags to left neck x2 excised at base with scissors and base cauterized 05/30/2010 Appointment: María Elena Appiah WPtel: [address] [place] [address] OFFICE SURGERY 05/30/2010 Patient Education: Patient Medication Summary Completed 05/30/2010 Visit Plan: Saline nasal flushes prn. Ty lenol/Motrin prn headache. Notify if persists/symptoms worsening. Restart Nasonex Has allergy testing set for May 25 04/27/2010 Appointment: María Elena Appiah WPtel: [address] [place] [address] ACUTE ILLNESS 04/27/2010 Patient Education: Patient Medication Summary Completed 04/27/2010 Visit Plan: Saline nasal flushes prn. Ty lenol/Motrin prn headache. Notify if persists/symptoms worsening. Omnaris BID plus injections 04/05/2010 Appointment: María Elena Appiah WPtel: [address] [place] [address] ACUTE ILLNESS 04/05/2010 Patient Education: Patient Medication Summary Completed 04/05/2010 Visit Plan: Saline nasal flushes prn. Ty lenol/Motrin prn headache. Notify if persists/symptoms worsening. 03/09/2010 Appointment: María Elena Appiah WPtel: [address] [place] [address] ACUTE ILLNESS 03/09/2010 Patient Education: Patient Medication Summary Completed 03/09/2010 Visit Plan: Cont Clonidine as is Cont Pr emarin Fwup with surgery as scheduled 03/03/2010 Appointment: María Elena Appiah WPtel: [address] [place], [place] [phone] FOLLOW UP 03/03/2010 Patient Education: Patient Medication Summary Completed 03/03/2010 Visit Plan: Check Pelvic US now Discusse tacho Sal C vs Hysterectomy 01/17/2010 Appointment: María Elena Appiah WPtel: [address] [place], [place] [phone] ACUTE ILLNESS 01/17/2010 Patient Education: Patient Medication Summary Completed 01/17/2010 Visit Plan: Check fasting lab and schedu le Mammogram 2gm Na Diet Trial of Ambien 10mg qhs Fwup pending lab results 12/27/2009 Appointment: María Elena Appiah WPtel: [address] [place], [place] [phone] ESTABLISHED PATIENT 12/27/2009 Patient Education: Patient Medication Summary Completed 12/27/2009 Referral: Canelo Overton WPtel: [address] [place] [id number] [place] Referral Initiated Referral: Philipp Flores WPtel: [address] [id number] [place] Referral Appointment Requested Instructions Comment . [...] to rest and hydrate. Discussed stroke and GA symptoms. Pt. instructed to seek ER eval [...]
--- OUTSIDE RECORDS SUMMARY | 2020-03-13 05:14 | XMS REPORT | CCD ---
Author Author Gale Appiah D.O. Organization [facility] Address [address] [place] [phone] Phone Care Team Providers Care Waste Specialist Name Role Phone María Elena Appiah D.O., PP Unavailable CCM Unavailable Summary Purpose Interface Exchange Insurance Providers Payer name Policy type / Coverage type Covered libertarian ID Effective Begin Date Effective End Date [facility] Commercial Insurance [id number] Unknown Family History Family History data not found Social History Social History Element Codes Description Effective Dates Tobacco history SNOMED CT: [id number] Never smoker 05/22/2011 Allergies, Adverse Reactions, Alerts [...] Instructions Klor-Con 8 mEq tablet,extended release RxNorm: 661634 T FARRUKH ONE TABLET BY MOUTH TWICE A DAY 12/19/2019 No Stop Date Active allopurinol 300 mg tablet RxNorm: 689903 TAKE ONE TABLET BY LOPEZ TH DAILY 12/19/2019 No Stop Date Active glimepiride 2 mg tablet RxNorm: 435547 TAKE ONE TABLET BY MOUTH TWICE A DAY 12/19/2019 No Stop Date Active hydrocodone 10 mg-acetaminophen 325 mg tablet RxNorm: 553002 1-2 Tablet(s) Oral three times a day as needed for pain 12/10/2019 No Stop Date Active Januvia 100 mg tablet RxNorm: 903799 1 Tablet(s) Oral QD 11/20/2019 0 11/20/2019 Inactive glimepiride 2 mg tablet RxNorm: 626429 1 Tablet(s) Oral two sawyer es a day 11/20/2019 12/18/2019 Inactive cyclobenzaprine 10 mg tablet RxNorm: 530787 TAKE ONE TA BLET BY MOUTH THREE TIMES A DAY NEEDED FOR MUSCLE SPASMS 11/17/2019 No Stop Date Active doxepin 25 mg capsule RxNorm: 9193218 TAKE ONE CAPSULE B Y MOUTH EVERY NIGHT AT BEDTIME NEEDED FOR SLEEP 11/16/2019 No Stop Date Active Klor-Con 8 mEq tablet,extended release RxNorm: 346835 T FARRUKH ONE TABLET BY MOUTH TWICE A DAY 11/16/2019 12/18/2019 Inactive hydrocodone 10 mg-acetaminophen 325 mg tablet RxNorm: 988288 1-2 Tablet(s) Oral three times a day as needed for pain 11/10/2019 12/09/2019 Inactive cyclobenzaprine 10 mg tablet RxNorm: 660272 TAKE ONE TA BLET BY MOUTH THREE TIMES A DAY NEEDED FOR MUSCLE SPASMS 10/23/2019 11/16/2019 Inactive duloxetine 60 mg capsule,delayed release RxNorm: 838185 1 Capsu le(s) Oral QD 10/17/2019 04/13/2020 Active celecoxib 200 mg capsule RxNorm: 983533 1 Capsule(s) Or al two times a day as needed for pain 10/17/2019 01/14/2020 Active lisinopril 20 mg tablet RxNorm: 977806 1 Tablet(s) Oral QD 10/17/19 20 04/13/2020 Active gabapentin 300 mg capsule RxNorm: 581689 1 Capsule(s) O ral every night at bedtime 10/17/2019 01/15/2020 Active Singulair 10 mg tablet RxNorm: 984195 1 Tablet(s) Oral QD 10/17/2019 04/14/2020 Active metoprolol tartrate 100 mg tablet RxNorm: 472051 1 Tabl et(s) Oral two times a day 10/17/2019 04/13/2020 Active clonidine HCl 0.1 mg tablet RxNorm: 146329 1 Tablet(s) Oral fou r times a day 10/17/2019 04/13/2020 Active Januvia 100 mg tablet RxNorm: 854604 1 Tablet(s) Oral QD 10/17/2019 No Stop Date Active Lipitor 10 mg tablet RxNorm: 543587 1 Tablet(s) Oral QD 10/17/2019 Active Steglatro 15 mg tablet RxNorm: 3710289 1 Tablet(s) Oral QD 10/17/19 20 No Stop Date Active Klor-Con 8 mEq tablet,extended release RxNorm: 600903 1 Tablet(s) Oral two times a day 10/17/2019 11/15/2019 Inactive Glyxambi 25 mg-5 mg tablet RxNorm: 4524588 1 Tablet(s) Oral QD 01/202010/16/2019 Inactive Patient will bring in copay discount card as well Glyxambi 25 mg-5 mg tablet RxNorm: 8261523 1 Tablet(s) Oral QD 01/202010/14/2019 Inactive Patient will bring in copay discount card as well Keflex 500 mg capsule RxNorm: 721238 1 Capsule(s) Oral two time s a day 10/07/2019 10/14/2019 Inactive Premarin 1.25 mg tablet RxNorm: 756612 1 Tablet(s) Oral QD 09/30/1906/25/2020 Active hydrocodone 10 mg-acetaminophen 325 mg tablet RxNorm: 635075 1-2 Tablet(s) Oral three times a day as needed for pain 09/30/2019 09/30/2019 Inactive baclofen 10 mg tablet RxNorm: 311477 TAKE ONE TABLET BY MOUTH THREE TIMES A DAY NEEDED 09/19/2019 No Stop Date Active gabapentin 300 mg capsule RxNorm: 728092 TAKE ONE CAPSU LE BY MOUTH EVERY NIGHT AT BEDTIME 09/19/2019 10/16/2019 Inactive Klor-Con 8 mEq tablet,extended release RxNorm: 332321 T FARRUKH ONE TABLET BY MOUTH TWICE A DAY 1 Tablet(s) Oral two times a day 09/19/2019 10/16/[address] [place] [facility] hydrocodone 10 mg-acetaminophen 325 mg tablet RxNorm: 487075 1-2 Tablet(s) Oral three times a day as needed for pain 09/19/2019 09/29/2019 Inactive triamterene 75 mg-hydrochlorothiazide 50 mg tablet RxNorm: 3 50294 TAKE ONE TABLET BY MOUTH DAILY 09/11/2019 No Stop Date Active duloxetine 60 mg capsule,delayed release RxNorm: 745495 TAKE ONE CAPSULE BY MOUTH DAILY 09/11/2019 10/16/2019 Inactive Lipitor 10 mg tablet RxNorm: 877102 TAKE ONE TABLET BY MOUTH AT BEDTIME 09/11/2019 10/16/2019 Inactive lisinopril 20 mg tablet RxNorm: 608673 TAKE ONE TABLET BY MOUTH DAILY .... THIS REPLACE 10MG TABLETS 09/11/2019 10/16/2019 Inactive allopurinol 300 mg tablet RxNorm: 989904 TAKE ONE TABLET BY LOPEZ TH DAILY 09/11/2019 12/18/2019 Inactive celecoxib 200 mg capsule RxNorm: 840263 TAKE ONE CAPSUL E BY MOUTH TWICE A DAY NEEDED FOR PAIN 09/11/2019 10/16/2019 Inactive clonidine HCl 0.1 mg tablet RxNorm: 886299 TAKE ONE TAB LET BY MOUTH FOUR TIMES A DAY 09/11/2019 10/16/2019 Inactive doxepin 25 mg capsule RxNorm: 6680565 1 Capsule(s) Oral every night at bedtime as needed for sleep 08/21/2019 11/15/2019 Inactive hydrocodone 10 mg-acetaminophen 325 mg tablet RxNorm: 041706 1-2 Tablet(s) PO TID 08/12/2019 09/29/2019 Inactive as needed for pa in - Previous quantity #240, will start dosing for #180 in April 2011 per Doctor Td. Medrol (Dustin) 4 mg tablets in a dose pack RxNorm: 265068 Tablet(s) Oral As Directed 07/21/2019 09/29/2019 Inactive Premarin 1.25 mg tablet RxNorm: 583143 1 Tablet(s) Oral QD 07/02/2009/29/2019 Inactive hydrocodone 10 mg-acetaminophen 325 mg tablet RxNorm: 601078 1-2 Tablet(s) PO TID 07/01/2019 08/11/2019 Inactive as needed for pa in - Previous quantity #240, will start dosing for #180 in April 2011 per Doctor Td. gabapentin 300 mg capsule RxNorm: 021251 1 Capsule(s) PO QHS 201809/18/2019 Inactive celecoxib 200 mg capsule RxNorm: 281848 1 Capsule(s) Or al two times a day as needed for pain 06/27/2019 06/27/2019 Inactive furosemide 40 mg tablet RxNorm: 349518 TAKE ONE TABLET BY MOUTH EVERY MORNING NEEDED FOR EDEMA . TAKE WITH POTASSIUM 06/24/2019 No Stop Date Active doxepin 25 mg capsule RxNorm: 2248433 TAKE ONE CAPSULE B Y MOUTH EVERY NIGHT AT BEDTIME NEEDED FOR SLEEP 06/24/2019 08/20/2019 Inactive Singulair 10 mg tablet RxNorm: 950536 TAKE ONE TABLET BY MOUTH JOSÉ Y 06/24/2019 10/16/2019 Inactive lisinopril 20 mg tablet RxNorm: 666088 TAKE ONE TABLET BY MOUTH DAILY .... THIS REPLACE 10MG TABLETS 06/24/2019 09/10/2019 Inactive nystatin-triamcinolone 100,000 unit/g-0.1 % topical cream Rx Norm: 3036015 1 Application Topical two times a day 06/12/2019 06/19/2019 Inactive apply BID for 1 week nystatin-triamcinolone 100,000 unit/g-0.1 % topical cream Rx Norm: 0704702 1 Application Topical two times a day 06/12/2019 06/11/2019 Inactive apply BID for 1 week hydrocodone 10 mg-acetaminophen 325 mg tablet RxNorm: 653851 1-2 Tablet(s) PO QID as needed for pain MUST LAST 30 DAYS 05/28/2019 06/26/2019 Inactiv e (Response to an electronic controlled substance refill request - RxReferenceNumber: [id number]) baclofen 20 mg tablet RxNorm: 386479 1 Tablet(s) PO TID as needed for muscle spasm 05/19/2019 05/27/2019 Inactive gabapentin 300 mg capsule RxNorm: 523250 1 Capsule(s) PO QHS 201805/27/2019 Inactive lisinopril 20 mg tablet RxNorm: 920275 1 Tablet(s) PO Q D TAKE ONE TABLET BY MOUTH DAILY, REPLACES 10 MG DOSE 05/19/2019 06/23/2019 Inactive doxepin 25 mg capsule RxNorm: 1198203 TAKE ONE CAPSULE B Y MOUTH EVERY NIGHT AT BEDTIME NEEDED FOR SLEEP 05/16/2019 06/14/2019 Inactive lisinopril 20 mg tablet RxNorm: 721779 TAKE ONE TABLET BY MOUTH DAILY, REPLACES 10 MG DOSE 05/16/2019 05/18/2019 Inactive Singulair 10 mg tablet RxNorm: 585551 TAKE ONE TABLET BY MOUTH JOSÉ Y 05/16/2019 06/14/2019 Inactive gabapentin 300 mg capsule RxNorm: 611089 1 Capsule(s) PO QHS 201805/04/2019 Inactive estropipate 1.5 mg tablet RxNorm: 294507 1 Tablet(s) PO QD 05/05/2005/27/2019 Inactive estropipate 1.5 mg tablet RxNorm: 644003 1 Tablet(s) PO QD 05/05/2005/04/2019 Inactive gabapentin 300 mg capsule RxNorm: 900514 1 Capsule(s) PO QHS 201805/18/2019 Inactive hydrocodone 10 mg-acetaminophen 325 mg tablet RxNorm: 503181 1-2 Tablet(s) PO QID as needed for pain MUST LAST 30 DAYS 04/25/2019 05/24/2019 Inactiv e (Response to an electronic controlled substance refill request - RxReferenceNumber: [id number]) cyclobenzaprine 10 mg tablet RxNorm: 822464 TAKE ONE TA BLET BY MOUTH THREE TIMES A DAY NEEDED FOR MUSCLE SPASMS 04/24/2019 05/18/2019 Inactive metoprolol tartrate 100 mg tablet RxNorm: 590250 TAKE O NE TABLET BY MOUTH TWICE A DAY 04/24/2019 10/16/2019 Inactive Lyrica 75 mg capsule RxNorm: 556483 1 Capsule(s) PO QHS 03/25/2019 Inactive duloxetine 60 mg capsule,delayed release RxNorm: 770954 TAKE ONE CAPSULE BY MOUTH DAILY 03/21/2019 05/19/2019 Inactive triamterene 75 mg-hydrochlorothiazide 50 mg tablet RxNorm: 3 10649 TAKE ONE TABLET BY MOUTH DAILY 03/21/2019 05/19/2019 Inactive Klor-Con 8 mEq tablet,extended release RxNorm: 284494 T FARRUKH ONE TABLET BY MOUTH TWICE A DAY 03/21/2019 09/18/2019 Inactive Lipitor 10 mg tablet RxNorm: 279573 TAKE ONE TABLET BY MOUTH AT BEDTIME 03/21/2019 09/10/2019 Inactive clonidine HCl 0.1 mg tablet RxNorm: 247481 TAKE ONE TAB LET BY MOUTH FOUR TIMES A DAY 03/21/2019 05/19/2019 Inactive allopurinol 300 mg tablet RxNorm: 405468 TAKE ONE TABLET BY LOPEZ TH DAILY 03/21/2019 05/19/2019 Inactive hydrocodone 10 mg-acetaminophen 325 mg tablet RxNorm: 459567 1-2 Tablet(s) PO QID as needed for pain MUST LAST 30 DAYS 02/28/2019 03/29/2019 Inactiv e (Response to an electronic controlled substance refill request - RxReferenceNumber: [id number]) furosemide 40 mg tablet RxNorm: 510023 TAKE ONE TABLET BY MOUTH EVERY MORNING NEEDED FOR EDEMA . TAKE WITH POTASSIUM 02/21/2019 03/22/2019 Inactive cyclobenzaprine 10 mg tablet RxNorm: 272620 TAKE ONE TA BLET BY MOUTH THREE TIMES A DAY NEEDED FOR MUSCLE SPASMS 02/21/2019 04/21/2019 Inactive lisinopril 20 mg tablet RxNorm: 496426 TAKE ONE TABLET BY MOUTH DAILY, REPLACES 10 MG DOSE 02/21/2019 05/15/2019 Inactive doxepin 25 mg capsule RxNorm: 3440873 TAKE ONE CAPSULE B Y MOUTH EVERY NIGHT AT BEDTIME NEEDED FOR SLEEP 02/21/2019 05/15/2019 Inactive nystatin 100,000 unit/gram topical cream RxNorm: 658486 APPLY TO AFFECTED AREA(S) TWO TIMES A DAY 02/21/2019 03/22/2019 Inactive estradiol 1 mg tablet RxNorm: 134195 2 Tablet(s) PO QD replaces premarin 01/22/2019 05/04/2019 Inactive lisinopril 20 mg tablet RxNorm: 504506 TAKE ONE TABLET BY MOUTH DAILY, REPLACES 10 MG DOSE 01/20/2019 02/18/2019 Inactive cyclobenzaprine 10 mg tablet RxNorm: 252552 TAKE ONE TA BLET BY MOUTH THREE TIMES A DAY NEEDED FOR MUSCLE SPASMS 01/20/2019 02/18/2019 Inactive metoprolol tartrate 100 mg tablet RxNorm: 133861 TAKE O NE TABLET BY MOUTH TWICE A DAY 01/20/2019 02/18/2019 Inactive cyclobenzaprine 10 mg tablet RxNorm: 722335 TAKE ONE TA BLET BY MOUTH THREE TIMES A DAY NEEDED FOR MUSCLE SPASMS 12/19/2018 01/17/2019 Inactive lisinopril 20 mg tablet RxNorm: 749841 TAKE ONE TABLET BY MOUTH DAILY, REPLACES 10 MG DOSE 12/19/2018 01/17/2019 Inactive duloxetine 60 mg capsule,delayed release RxNorm: 919991 TAKE ONE CAPSULE BY MOUTH DAILY 12/19/2018 01/17/2019 Inactive Lipitor 10 mg tablet RxNorm: 177568 TAKE ONE TABLET BY MOUTH AT BEDTIME 12/19/2018 01/17/2019 Inactive cyclobenzaprine 10 mg tablet RxNorm: 786393 1 Tablet(s) PO TID as needed for muscle spasm 11/19/2018 12/18/2018 Inactive Singulair 10 mg tablet RxNorm: 279334 1 Tablet(s) PO QD 11/19/2018 Inactive lisinopril 20 mg tablet RxNorm: 025837 TAKE ONE TABLET BY MOUTH DAILY, REPLACES 10 MG DOSE 11/15/2018 12/18/2018 Inactive hydrocodone 10 mg-acetaminophen 325 mg tablet RxNorm: 634844 1-2 Tablet(s) PO QID as needed for pain MUST LAST 30 DAYS 11/13/2018 12/12/2018 Inactiv e (Response to an electronic controlled substance refill request - RxReferenceNumber: [id number]) nystatin 100,000 unit/gram topical cream RxNorm: 154081 APPLY TO AFFECTED AREA(S) TWO TIMES A DAY 10/23/2018 11/06/2018 Inactive lisinopril 20 mg tablet RxNorm: 754587 1 Tablet(s) PO QD replac es 10mg dose 10/18/2018 11/14/2018 Inactive hydrocodone 10 mg-acetaminophen 325 mg tablet RxNorm: 942876 1-2 Tablet(s) QID as needed for pain MUST LAST 30 DAYS 10/08/2018 11/06/2018 Inactive (Response to an electronic controlled substance refill request - RxReferenceNumber: [id number]) lisinopril 10 mg tablet RxNorm: 904808 1 Tablet(s) PO QD 10/03/2018 0 01/21/2019 Inactive Celebrex 200 mg capsule RxNorm: 911583 TAKE ONE CAPSULE BY MOUT H TWICE A DAY 09/30/2018 05/04/2019 Inactive cyclobenzaprine 10 mg tablet RxNorm: 280107 TAKE ONE TA BLET BY MOUTH THREE TIMES A DAY NEEDED FOR MUSCLE SPASMS 09/30/2018 11/18/2018 Inactive doxepin 25 mg capsule RxNorm: 0634012 TAKE ONE CAPSULE B Y MOUTH EVERY NIGHT AT BEDTIME NEEDED 09/05/2018 10/16/2018 Inactive omeprazole 40 mg capsule,delayed release RxNorm: 282689 TAKE ONE CAPSULE BY MOUTH DAILY 09/05/2018 01/21/2019 Inactive furosemide 40 mg tablet RxNorm: 090697 TAKE ONE TABLET BY MOUTH EVERY MORNING NEEDED FOR EDEMA . TAKE WITH POTASSIUM 09/05/2018 11/03/2018 Inactive phentermine 37.5 mg tablet RxNorm: 388927 1 Tablet(s) PO QAM 201701/21/2019 Inactive doxepin 25 mg capsule RxNorm: 9511559 1 Capsule(s) PO QH S as needed for sleep TAKE ONE CAPSULE BY MOUTH EVERY NIGHT AT BEDTIME NEEDED 08/27/2018 09/04/2018 Inactive Keflex 500 mg capsule RxNorm: 963279 1 Capsule(s) PO TID 08/09/2018 1 10/19/2017 Inactive Diflucan 100 mg tablet RxNorm: 125071 1 Tablet(s) PO QD 08/09/2018 Inactive Premarin 1.25 mg tablet RxNorm: 026417 2 Tablet(s) PO QD 08/09/2018 0 05/04/2019 Inactive Zofran ODT 4 mg disintegrating tablet RxNorm: 654183 1 Tablet(s) PO Q4H as needed for nausea 08/09/2018 01/21/2019 Inactive metoprolol tartrate 100 mg tablet RxNorm: 306944 TAKE O NE TABLET BY MOUTH TWICE A DAY 2018 10/04/2018 Inactive doxepin 25 mg capsule RxNorm: 4269676 TAKE ONE CAPSULE B Y MOUTH EVERY NIGHT AT BEDTIME NEEDED 2018 08/26/2018 Inactive cyclobenzaprine 10 mg tablet RxNorm: 579573 TAKE ONE TA BLET BY MOUTH THREE TIMES A DAY NEEDED FOR MUSCLE SPASMS 2018 09/29/2018 Inactive hydrocodone 10 mg-acetaminophen 325 mg tablet RxNorm: 719957 1-2 Tablet(s) QID as needed for pain MUST LAST 30 DAYS 07/29/2018 08/27/2018 Inactive (Response to an electronic controlled substance refill request - RxReferenceNumber: [id number]) nystatin 100,000 unit/gram topical powder RxNorm: 982080 Applic ation TOP BID 07/22/2018 08/04/2018 Inactive doxepin 25 mg capsule RxNorm: 4462180 1 Capsule(s) PO QHS as needed 07/22/2018 08/05/2018 Inactive triamterene 75 mg-hydrochlorothiazide 50 mg tablet RxNorm: 3 55744 TAKE ONE TABLET BY MOUTH DAILY 07/05/2018 10/02/2018 Inactive duloxetine 60 mg capsule,delayed release RxNorm: 003575 TAKE ONE CAPSULE BY MOUTH DAILY 07/05/2018 09/02/2018 Inactive Klor-Con 8 mEq tablet,extended release RxNorm: 880972 T FARRUKH ONE TABLET BY MOUTH TWICE A DAY 07/05/2018 10/02/2018 Inactive Lipitor 10 mg tablet RxNorm: 287305 TAKE ONE TABLET BY MOUTH AT BEDTIME 07/05/2018 09/02/2018 Inactive allopurinol 300 mg tablet RxNorm: 042128 TAKE ONE TABLET BY LOPEZ TH DAILY 07/05/2018 10/02/2018 Inactive clonidine HCl 0.1 mg tablet RxNorm: 618632 TAKE ONE TAB LET BY MOUTH FOUR TIMES A DAY 07/05/2018 10/02/2018 Inactive hydrocodone 10 mg-acetaminophen 325 mg tablet RxNorm: 869357 1-2 Tablet(s) QID as needed for pain MUST LAST 30 DAYS 06/28/2018 07/27/2018 Inactive (Response to an electronic controlled substance refill request - RxReferenceNumber: [id number]) MediHoney (calcium alginate-honey) 4" X 5" bandage RxNorm: 1 Application TOP QD 06/17/2018 06/26/2018 Inactive honey-hydrocolloid dressing 4" X 5" RxNorm: 1 Application TOP QD 06/17/2018 07/16/2018 Inactive furosemide 40 mg tablet RxNorm: 737345 TAKE ONE TABLET BY MOUTH EVERY MORNING NEEDED FOR EDEMA . TAKE WITH POTASSIUM 06/10/2018 07/09/2018 Inactive This is a refill request. hydrocodone 10 mg-acetaminophen 325 mg tablet RxNorm: 303348 1-2 Tablet(s) QID as needed for pain MUST LAST 30 DAYS 05/30/2018 06/27/2018 Inactive (Response to an electronic controlled substance refill request - RxReferenceNumber: [id number]) acyclovir 800 mg tablet RxNorm: 314523 1 Tablet(s) PO 5x day 201705/22/2018 Inactive Premarin 1.25 mg tablet RxNorm: 495322 1-2 Tablet(s) PO QD 05/15/20 18 07/13/2018 Inactive cyclobenzaprine 10 mg tablet RxNorm: 313693 1 Tablet(s) PO TID as needed for muscle spasm 05/09/2018 05/08/2018 Inactive Medrol (Dustin) 4 mg tablets in a dose pack RxNorm: 021734 Tablet(s) PO As Directed 05/02/2018 06/16/2018 Inactive hydrocodone 10 mg-acetaminophen 325 mg tablet RxNorm: 248344 1-2 Tablet(s) QID as needed for pain MUST LAST 30 DAYS 04/30/2018 05/29/2018 Inactive (Response to an electronic controlled substance refill request - RxReferenceNumber: [id number]) duloxetine 60 mg capsule,delayed release RxNorm: 028245 TAKE ONE CAPSULE BY MOUTH DAILY 04/16/2018 05/15/2018 Inactive Celebrex 200 mg capsule RxNorm: 277867 TAKE ONE CAPSULE BY MOUT H TWICE A DAY 04/16/2018 06/14/2018 Inactive Singulair 10 mg tablet RxNorm: 950817 TAKE ONE TABLET BY MOUTH JOSÉ Y 04/16/2018 11/19/2018 Inactive Lipitor 10 mg tablet RxNorm: 312374 TAKE ONE TABLET BY MOUTH AT BEDTIME 04/16/2018 05/15/2018 Inactive hydrocodone 10 mg-acetaminophen 325 mg tablet RxNorm: 526875 1-2 Tablet(s) QID as needed for pain MUST LAST 30 DAYS 03/29/2018 04/27/2018 Inactive (Response to an electronic controlled substance refill request - RxReferenceNumber: [id number]) cyclobenzaprine 10 mg tablet RxNorm: 636823 1 Tablet(s) PO TID as needed for muscle spasm 03/18/2018 05/09/2018 Inactive omeprazole 40 mg capsule,delayed release RxNorm: 544961 1 Capsu le(s) PO QD 02/26/2018 08/24/2018 Inactive hydrocodone 10 mg-acetaminophen 325 mg tablet RxNorm: 931476 1-2 Tablet(s) QID as needed for pain MUST LAST 30 DAYS 02/26/2018 03/27/2018 Inactive (Response to an electronic controlled substance refill request - RxReferenceNumber: [id number]) metoprolol tartrate 100 mg tablet RxNorm: 219031 1 Tablet(s) PO BID 02/18/2018 08/05/2018 Inactive Lyrica 75 mg capsule RxNorm: 074486 1 Capsule(s) PO QHS 01/30/2018 Inactive phentermine 37.5 mg tablet RxNorm: 667071 1 Tablet(s) PO QAM 201706/16/2018 Inactive hydrocodone 10 mg-acetaminophen 325 mg tablet RxNorm: 253357 1-2 Tablet(s) QID as needed for pain MUST LAST 30 DAYS 01/29/2018 02/25/2018 Inactive (Response to an electronic controlled substance refill request - RxReferenceNumber: [id number]) Klor-Con 8 mEq tablet,extended release RxNorm: 720585 1 Tablet( s) PO BID 01/14/2018 07/04/2018 Inactive allopurinol 300 mg tablet RxNorm: 071968 1 Tablet(s) PO QD 01/15/2007/04/2018 Inactive Lipitor 10 mg tablet RxNorm: 840383 1 Tablet(s) PO QHS 01/14/201812/2017 Inactive triamterene 75 mg-hydrochlorothiazide 50 mg tablet RxNorm: 3 98135 1 Tablet(s) PO QD 01/14/2018 07/04/2018 Inactive hydrocodone 10 mg-acetaminophen 325 mg tablet RxNorm: 261856 1-2 Tablet(s) QID as needed for pain MUST LAST 30 DAYS 12/27/2017 01/25/2018 Inactive (Response to an electronic controlled substance refill request - RxReferenceNumber: [id number]) Onglyza 5 mg tablet RxNorm: 731839 1 Tablet(s) PO QD 12/18/201701/29 Inactive metformin 500 mg tablet RxNorm: 025008 1 Tablet(s) PO BID 12/11/2017 12/10/2017 Inactive metformin 500 mg tablet RxNorm: 988344 1 Tablet(s) PO BID 12/11/2017 12/17/2017 Inactive furosemide 40 mg tablet RxNorm: 599662 1 Tablet(s) PO Q AM prn edema--take with potassium 12/11/2017 06/08/2018 Inactive cyclobenzaprine 10 mg tablet RxNorm: 130013 1 Tablet(s) PO TID as needed for muscle spasm 12/11/2017 03/18/2018 Inactive hydrocodone 10 mg-acetaminophen 325 mg tablet RxNorm: 117591 1-2 Tablet(s) QID as needed for pain MUST LAST 30 DAYS 10/23/2017 11/21/2017 Inactive (Response to an electronic controlled substance refill request - RxReferenceNumber: [id number]) Lipitor 10 mg tablet RxNorm: 153143 1 Tablet(s) PO QHS 10/16/201703/2018 Inactive cyclobenzaprine 10 mg tablet RxNorm: 636508 1 Tablet(s) PO TID as needed for muscle spasm 10/09/2017 12/10/2017 Inactive hydroxyzine HCl 25 mg tablet RxNorm: 421074 1 Tablet(s) PO BID as needed for anxiety 09/20/2017 01/29/2018 Inactive Effexor XR 75 mg capsule,extended release RxNorm: 823294 1 Caps ule(s) PO QD 09/20/2017 01/29/2018 Inactive metoprolol tartrate 100 mg tablet RxNorm: 667418 1 Tablet(s) PO BID 08/20/2017 02/18/2018 Inactive baclofen 20 mg tablet RxNorm: 341179 1 Tablet(s) PO TID as needed for muscle spasm 08/20/2017 01/21/2019 Inactive clonidine HCl 0.1 mg tablet RxNorm: 078670 1 Tablet(s) PO QID 08/2005/16/2018 Inactive Seroquel 25 mg tablet RxNorm: 655828 1 Tablet(s) PO QHS 08/17/2017 Inactive Seroquel 25 mg tablet RxNorm: 925231 1 Tablet(s) PO QHS 08/17/2017 Inactive Diflucan 100 mg tablet RxNorm: 456083 TAKE ONE TABLET BY MOUTH JOSÉ Y 07/25/2017 08/07/2017 Inactive hydrocodone 10 mg-acetaminophen 325 mg tablet RxNorm: 121196 1-2 Tablet(s) QID as needed for pain MUST LAST 30 DAYS 07/19/2017 08/17/2017 Inactive (Response to an electronic controlled substance refill request - RxReferenceNumber: [id number]) clindamycin 300 mg capsule RxNorm: 411117 1 Capsule(s) PO TID 07/1907/28/2017 Inactive clotrimazole-betamethasone 1 %-0.05 % topical cream RxNorm: 167864 Application TOP BID to elbow rash 07/19/2017 06/16/2018 Inactive Singulair 10 mg tablet RxNorm: 670739 Tablet(s) TAKE ONE TABLET BY MOUTH DAILY 07/18/2017 04/13/2018 Inactive triamterene 75 mg-hydrochlorothiazide 50 mg tablet RxNorm: 3 46126 1 Tablet(s) PO QD 07/18/2017 01/14/2018 Inactive Celebrex 200 mg capsule RxNorm: 668562 Capsule(s) TAKE ONE CAPSULE BY MOUTH TWICE A DAY 07/18/2017 10/15/2017 Inactive hydrocodone 10 mg-acetaminophen 325 mg tablet RxNorm: 725092 1-2 Tablet(s) QID as needed for pain MUST LAST 30 DAYS 06/19/2017 07/18/2017 Inactive (Response to an electronic controlled substance refill request - RxReferenceNumber: [id number]) hydrocodone 10 mg-acetaminophen 325 mg tablet RxNorm: 399792 1-2 Tablet(s) QID as needed for pain MUST LAST 30 DAYS 06/19/2017 06/18/2017 Inactive (Response to an electronic controlled substance refill request - RxReferenceNumber: [id number]) baclofen 20 mg tablet RxNorm: 362255 1 Tablet(s) PO TID as needed for muscle spasm 06/18/2017 08/20/2017 Inactive Medrol (Dustin) 4 mg tablets in a dose pack RxNorm: 533714 Tablet(s) PO As Directed 06/05/2017 07/18/2017 Inactive omeprazole 40 mg capsule,delayed release RxNorm: 427981 1 Capsu le(s) PO QD 04/20/2017 10/16/2017 Inactive Premarin 1.25 mg tablet RxNorm: 198189 1-2 Tablet(s) PO QD 04/11/20 17 05/15/2018 Inactive duloxetine 60 mg capsule,delayed release RxNorm: 925819 1 Capsu le(s) PO QD 04/11/2017 09/19/2017 Inactive furosemide 40 mg tablet RxNorm: 486881 1 Tablet(s) PO Q AM prn edema--take with potassium 04/11/2017 12/11/2017 Inactive Klor-Con 8 mEq tablet,extended release RxNorm: 101382 1 Tablet( s) PO BID 04/11/2017 01/14/2018 Inactive Lipitor 10 mg tablet RxNorm: 138092 1 Tablet(s) PO QHS 04/11/201702/2018 Inactive amlodipine 5 mg-benazepril 20 mg capsule RxNorm: 396851 1 Capsu le(s) PO QD 04/11/2017 01/29/2018 Inactive allopurinol 300 mg tablet RxNorm: 619505 1 Tablet(s) PO QD 04/11/20 17 01/14/2018 Inactive clonidine HCl 0.1 mg tablet RxNorm: 744555 1 Tablet(s) PO QID 04/0508/19/2017 Inactive baclofen 20 mg tablet RxNorm: 189758 1 Tablet(s) PO TID as needed for muscle spasm 04/02/2017 06/18/2017 Inactive Premarin 1.25 mg tablet RxNorm: 554212 1-2 Tablet(s) PO QD 03/20/20 17 04/10/2017 Inactive hydrocodone 10 mg-acetaminophen 325 mg tablet RxNorm: 945432 1-2 Tablet(s) QID as needed for pain MUST LAST 30 DAYS 03/14/2017 01/21/2019 Inactive (Response to an electronic controlled substance refill request - RxReferenceNumber: [id number]) metoprolol tartrate 100 mg tablet RxNorm: 907322 1 Tablet(s) PO BID 02/12/2017 08/20/2017 Inactive hydrocodone 10 mg-acetaminophen 325 mg tablet RxNorm: 003517 1-2 Tablet(s) QID as needed for pain MUST LAST 30 DAYS 02/08/2017 03/09/2017 Inactive (Response to an electronic controlled substance refill request - RxReferenceNumber: [id number]) metoprolol tartrate 100 mg tablet RxNorm: 593145 TAKE O NE TABLET BY MOUTH TWICE A DAY 01/11/2017 02/12/2017 Inactive metoprolol tartrate 100 mg tablet RxNorm: 964342 1 Tablet(s) PO BID 12/18/2016 12/17/2016 Inactive metoprolol tartrate 100 mg tablet RxNorm: 369991 1 Tablet(s) PO BID 12/18/2016 01/10/2017 Inactive furosemide 40 mg tablet RxNorm: 685381 1 Tablet(s) PO Q AM prn edema--take with potassium 12/13/2016 02/10/2017 Inactive amitriptyline 100 mg tablet RxNorm: 844218 1 Tablet(s) PO QHS 11/2812/12/2016 Inactive baclofen 20 mg tablet RxNorm: 845151 1 Tablet(s) PO TID as needed for muscle spasm 11/14/2016 04/01/2017 Inactive triamterene 75 mg-hydrochlorothiazide 50 mg tablet RxNorm: 3 04035 1 Tablet(s) PO QD 11/14/2016 11/13/2016 Inactive metolazone 2.5 mg tablet RxNorm: 813372 TAKE ONE TABLET BY MOUTH DAILY NEEDED FOR EDEMA 11/14/2016 12/12/2016 Inactive triamterene 75 mg-hydrochlorothiazide 50 mg tablet RxNorm: 3 17129 1 Tablet(s) PO QD 11/14/2016 07/18/2017 Inactive amitriptyline 50 mg tablet RxNorm: 803020 TAKE ONE TABL ET BY MOUTH AT BEDTIME NEEDED FOR SLEEP 11/14/2016 11/27/2016 Inactive Cymbalta 60 mg capsule,delayed release RxNorm: 294724 1 Capsule (s) PO QHS 11/14/2016 12/12/2016 Inactive clonidine HCl 0.1 mg tablet RxNorm: 766819 1 Tablet(s) PO QID 11/1304/04/2017 Inactive amitriptyline 50 mg tablet RxNorm: 152330 1 Tablet(s) P O QHS as needed for sleep 11/01/2016 11/27/2016 Inactive duloxetine 60 mg capsule,delayed release RxNorm: 581567 TAKE ONE CAPSULE BY MOUTH DAILY 10/20/2016 01/17/2017 Inactive allopurinol 300 mg tablet RxNorm: 653729 TAKE ONE TABLET BY LOPEZ TH DAILY 10/20/2016 01/16/2017 Inactive Lyrica 75 mg capsule RxNorm: 274204 TAKE ONE CAPSULE BY MOUTH EVERY NIGHT AT BEDTIME 10/20/2016 12/10/2016 Inactive Klor-Con 8 mEq tablet,extended release RxNorm: 391661 T FARRUKH ONE TABLET BY MOUTH TWICE A DAY 10/20/2016 01/17/2017 Inactive Celebrex 200 mg capsule RxNorm: 205726 TAKE ONE CAPSULE BY MOUT H TWICE A DAY 10/20/2016 07/18/2017 Inactive Bystolic 10 mg tablet RxNorm: 062945 TAKE ONE TABLET BY MOUTH EVERY NIGHT AT BEDTIME 10/20/2016 12/17/2016 Inactive amlodipine 5 mg-benazepril 20 mg capsule RxNorm: 969040 TAKE ONE CAPSULE BY MOUTH EVERY NIGHT AT BEDTIME -- TO REPLACE AMLODOPINE 10/20/20162016 Inactive Lipitor 10 mg tablet RxNorm: 696807 TAKE ONE TABLET BY MOUTH EVERY NIGHT AT BEDTIME 10/20/2016 01/17/2017 Inactive alprazolam 0.5 mg tablet RxNorm: 934395 3 Tablet(s) PO QHS as needed for sleep/anxiety 09/20/2016 10/31/2016 Inactive Tamiflu 75 mg capsule RxNorm: 028980 1 Capsule(s) PO QD 09/19/2016 Inactive Lyrica 75 mg capsule RxNorm: 391836 1 Capsule(s) PO QHS 09/19/2016 Inactive prednisone 20 mg tablet RxNorm: 482507 1 Tablet(s) PO QD 08/10/2016 1 10/17/2015 Inactive doxycycline hyclate 100 mg capsule RxNorm: 1363948 1 Capsule(s) PO BID 08/10/2016 08/19/2016 Inactive Medrol (Dustin) 4 mg tablets in a dose pack RxNorm: 907286 Tablet(s) PO As Directed 07/31/2016 08/22/2016 Inactive Singulair 10 mg tablet RxNorm: 975505 TAKE ONE TABLET BY MOUTH JOSÉ Y 07/27/2016 07/18/2017 Inactive hydrocodone 10 mg-acetaminophen 325 mg tablet RxNorm: 029908 1-2 Tablet(s) QID as needed for pain MUST LAST 30 DAYS 07/26/2016 08/24/2016 Inactive (Response to an electronic controlled substance refill request - RxReferenceNumber: [id number]) alprazolam 0.5 mg tablet RxNorm: 837677 3 Tablet(s) PO QHS as needed for anxiety or sleep 07/26/2016 09/20/2016 Inactive clindamycin 300 mg capsule RxNorm: 854953 1 Capsule(s) PO TID 07/2007/29/2016 Inactive Diflucan 100 mg tablet RxNorm: 075252 1 Tablet(s) PO QD 07/20/2016 Inactive Levaquin 500 mg tablet RxNorm: 466052 1 Tablet(s) PO QD 07/17/2016 Inactive Levaquin 500 mg tablet RxNorm: 003131 1 Tablet(s) PO QD 07/10/2016 Inactive Levaquin 500 mg tablet RxNorm: 365753 1 Tablet(s) PO QD 07/10/2016 Inactive mupirocin 2 % topical ointment RxNorm: 131083 TOP Apply topically to affected areas twice daily 07/06/2016 09/18/2016 Inactive Singulair 10 mg tablet RxNorm: 052249 TAKE ONE TABLET BY MOUTH JOSÉ Y 06/21/2016 01/21/2019 Inactive alprazolam 0.5 mg tablet RxNorm: 555167 TAKE THREE TABL ETS BY MOUTH AT BEDTIME NEEDED FOR SLEEP OR STRESS 05/22/2016 06/20/2016 Inactive triamterene 75 mg-hydrochlorothiazide 50 mg tablet RxNorm: 3 74170 1 Tablet(s) PO QD 04/26/2016 10/21/2016 Inactive Premarin 1.25 mg tablet RxNorm: 701811 1-2 Tablet(s) PO QD 04/26/20 16 03/20/2017 Inactive Klor-Con 8 mEq tablet,extended release RxNorm: 564301 1 Tablet( s) PO BID 04/26/2016 10/19/2016 Inactive Celebrex 200 mg capsule RxNorm: 868282 1 Capsule(s) PO BID TAKE ONE CAPSULE BY MOUTH EVERY DAY 04/26/2016 10/19/2016 Inactive Lipitor 10 mg tablet RxNorm: 220569 1 Tablet(s) PO QHS 04/26/201605/2017 Inactive allopurinol 300 mg tablet RxNorm: 768061 1 Tablet(s) PO QD TAKE ONE TABLET BY MOUTH EVERY DAY 04/26/2016 10/19/2016 Inactive amlodipine 5 mg-benazepril 20 mg capsule RxNorm: 626071 1 Capsule(s) PO QHS replaces amlodopine 04/26/2016 10/19/2016 Inactive duloxetine 60 mg capsule,delayed release RxNorm: 568726 1 Capsu le(s) PO QD 04/26/2016 10/19/2016 Inactive Bystolic 10 mg tablet RxNorm: 161447 1 Tablet(s) PO QHS 04/26/2016 Inactive Singulair 10 mg tablet RxNorm: 398782 1 Tablet(s) PO QD TAKE ONE TABLET BY MOUTH DAILY 04/26/2016 06/20/2016 Inactive clonidine HCl 0.1 mg tablet RxNorm: 984004 1 Tablet(s) PO QID 04/2610/22/2016 Inactive hydrocodone 10 mg-acetaminophen 325 mg tablet RxNorm: 673743 1-2 Tablet(s) QID as needed for pain TAKE ONE TO TWO TABLETS BY MOUTH FOUR TIMES A DAY . MUST LAST 30 DAYS 03/31/2016 04/29/2016 Inactive (Response to an electronic controlled substance refill request - RxReferenceNumber: [id number]) Klor-Con 8 mEq tablet,extended release RxNorm: 421200 T FARRUKH ONE TABLET BY MOUTH TWICE A DAY 03/24/2016 09/29/2019 Inactive prednisone 20 mg tablet RxNorm: 375142 1 Tablet(s) PO QD 03/09/2016 0 03/08/2016 Inactive prednisone 20 mg tablet RxNorm: 502553 1 Tablet(s) PO QD 03/09/2016 0 03/13/2016 Inactive alprazolam 0.5 mg tablet RxNorm: 907847 3 Tablet(s) PO QHS as needed for sleep/stress 03/02/2016 01/21/2019 Inactive mupirocin 2 % topical ointment RxNorm: 833591 TOP twice daily to affected areas of face and neck 02/21/2016 04/25/2016 Inactive clonidine HCl 0.1 mg tablet RxNorm: 409665 TAKE ONE TAB LET BY MOUTH FOUR TIMES A DAY 02/15/2016 09/29/2019 Inactive clonidine HCl 0.1 mg tablet RxNorm: 991064 1 Tablet(s) PO QID 02/1404/25/2016 Inactive Premarin 1.25 mg tablet RxNorm: 195386 1-2 Tablet(s) PO QD 02/15/20 16 03/15/2016 Inactive Klor-Con 8 mEq tablet,extended release RxNorm: 414589 T FARRUKH ONE TABLET BY MOUTH TWICE A DAY 02/15/2016 03/15/2016 Inactive potassium chloride ER 20 mEq tablet,extended release(part/cr yst) RxNorm: 472637 2 Tablet(s) PO BID 02/15/2016 03/15/2016 Inactive Macrobid 100 mg capsule RxNorm: 981476 1 Capsule(s) PO BID 01/24/20 16 01/30/2016 Inactive prednisone 20 mg tablet RxNorm: 300655 Take 3tabs PO QD x 2 days, then 2 tabs PO QD x 2 days, then 1 tab PO QD x 2 days, then 1/2 tab PO QDy x 2 days 12/23/2015 04/25/2016 Inactive Klor-Con 8 mEq tablet,extended release RxNorm: 980573 T FARRUKH ONE TABLET BY MOUTH TWICE A DAY 12/20/2015 02/14/2016 Inactive alprazolam 1 mg tablet RxNorm: 804070 1 1/2 Tablet(s) PO QHS 201501/23/2016 Inactive nystatin 100,000 unit/gram topical cream RxNorm: 972335 APPLY TO AFFECTED AREA(S) TWO TIMES A DAY 11/30/2015 12/14/2015 Inactive Singulair 10 mg tablet RxNorm: 352640 TAKE ONE TABLET BY MOUTH JOSÉ Y 11/18/2015 04/25/2016 Inactive allopurinol 300 mg tablet RxNorm: 402165 1 Tablet(s) PO QD TAKE ONE TABLET BY MOUTH EVERY DAY 10/26/2015 04/22/2016 Inactive Singulair 10 mg tablet RxNorm: 808606 TAKE ONE TABLET BY MOUTH JOSÉ Y 10/26/2015 11/17/2015 Inactive duloxetine 60 mg capsule,delayed release RxNorm: 377212 1 Capsu le(s) PO QD 10/26/2015 04/22/2016 Inactive triamterene 75 mg-hydrochlorothiazide 50 mg tablet RxNorm: 3 91089 1 Tablet(s) PO QD 10/26/2015 11/14/2016 Inactive potassium chloride ER 20 mEq tablet,extended release(part/cr yst) RxNorm: 622841 2 Tablet(s) PO BID 10/26/2015 02/14/2016 Inactive Lipitor 10 mg tablet RxNorm: 831766 1 Tablet(s) PO QHS 10/26/2015 Inactive amlodipine 5 mg-benazepril 20 mg capsule RxNorm: 622451 1 Capsule(s) PO QHS replaces amlodopine 10/26/2015 04/22/2016 Inactive Bystolic 10 mg tablet RxNorm: 369818 1 Tablet(s) PO QHS 10/26/2015 Inactive amlodipine 5 mg-benazepril 20 mg capsule RxNorm: 185849 1 Capsule(s) PO QHS replaces amlodopine 10/06/2015 10/25/2015 Inactive amlodipine 5 mg tablet RxNorm: 614722 1 Tablet(s) PO QHS 09/30/2015 0 04/25/2016 Inactive metolazone 2.5 mg tablet RxNorm: 838500 TAKE ONE TABLET BY MOUTH DAILY NEEDED FOR EDEMA 09/30/2015 01/21/2019 Inactive duloxetine 60 mg capsule,delayed release RxNorm: 866676 1 Capsu le(s) PO QD 09/30/2015 10/25/2015 Inactive cephalexin 500 mg capsule RxNorm: 359442 1 Capsule(s) PO BID 201509/23/2015 Inactive mupirocin 2 % topical ointment RxNorm: 969450 TOP twice daily to affected areas of face and neck 09/14/2015 02/20/2016 Inactive baclofen 20 mg tablet RxNorm: 586892 1 Tablet(s) PO TID as needed for muscle spasm 09/01/2015 11/14/2016 Inactive clonidine HCl 0.1 mg tablet RxNorm: 233292 1 Tablet(s) PO QID 09/0102/14/2016 Inactive alprazolam 1 mg tablet RxNorm: 662260 1 1/2 Tablet(s) PO QHS 201409/09/2015 Inactive baclofen 20 mg tablet RxNorm: 449131 1 Tablet(s) PO TID as needed for muscle spasm 07/23/2015 09/01/2015 Inactive omeprazole 40 mg capsule,delayed release RxNorm: 386251 1 Capsu le(s) PO QD 07/23/2015 04/25/2016 Inactive alprazolam 1 mg tablet RxNorm: 082434 1 1/2 Tablet(s) PO QHS 201408/10/2015 Inactive Bystolic 10 mg tablet RxNorm: 407604 1 Tablet(s) PO BID 06/24/2015 Inactive allopurinol 300 mg tablet RxNorm: 669246 1 Tablet(s) PO QD TAKE ONE TABLET BY MOUTH EVERY DAY 06/23/2015 10/20/2015 Inactive alprazolam 1 mg tablet RxNorm: 700339 1 1/2 Tablet(s) PO QHS 201407/06/2015 Inactive clonidine HCl 0.1 mg tablet RxNorm: 750792 1 Tablet(s) PO QID 06/0209/01/2015 Inactive clonidine HCl 0.1 mg tablet RxNorm: 822727 1 Tablet(s) PO QID 06/0206/01/2015 Inactive Cymbalta 60 mg capsule,delayed release RxNorm: 826269 1 Capsule (s) PO QHS 06/02/2015 08/30/2015 Inactive Cymbalta 60 mg capsule,delayed release RxNorm: 757368 1 Capsule (s) PO QHS 06/02/2015 06/01/2015 Inactive clonidine HCl 0.1 mg tablet RxNorm: 228195 1 Tablet(s) PO TID 05/3106/01/2015 Inactive replaces 0.2mg dose metolazone 2.5 mg tablet RxNorm: 595711 TAKE ONE TABLET BY MOUTH DAILY NEEDED FOR EDEMA 05/21/2015 06/19/2015 Inactive Singulair 10 mg tablet RxNorm: 286528 TAKE ONE TABLET BY MOUTH JOSÉ Y 05/21/2015 10/17/2015 Inactive Cymbalta 30 mg capsule,delayed release RxNorm: 229585 1 Capsule (s) PO QHS 05/20/2015 11/14/2016 Inactive betamethasone valerate 0.1 % topical cream RxNorm: 708759 Appli cation TOP BID 05/10/2015 04/25/2016 Inactive Bactroban 2 % topical ointment RxNorm: 100425 Application TOP BID 0 05/10/2015 06/20/2015 Inactive baclofen 20 mg tablet RxNorm: 770285 1 Tablet(s) PO TID as needed 0 04/26/2015 07/23/2015 Inactive Lipitor 10 mg tablet RxNorm: 484165 1 Tablet(s) PO QHS 04/26/201508/2016 Inactive clonidine HCl 0.1 mg tablet RxNorm: 441745 1 Tablet(s) PO TID 04/2605/30/2015 Inactive replaces 0.2mg dose Klor-Con 8 mEq tablet,extended release RxNorm: 687423 1 Tablet( s) PO BID 04/26/2015 04/25/2016 Inactive metolazone 2.5 mg tablet RxNorm: 471447 1 Tablet(s) PO QD as ne eded for edema 04/26/2015 04/25/2015 Inactive triamterene 75 mg-hydrochlorothiazide 50 mg tablet RxNorm: 3 61760 1 Tablet(s) PO QD 04/26/2015 10/22/2015 Inactive Premarin 1.25 mg tablet RxNorm: 127169 1-2 Tablet(s) PO QD 04/26/20 15 10/22/2015 Inactive Bystolic 10 mg tablet RxNorm: 979086 1 Tablet(s) PO QAM TAKE ONE TABLET BY MOUTH EVERY MORNING 04/23/2015 06/23/2015 Inactive clonidine HCl 0.1 mg tablet RxNorm: 221056 1 Tablet(s) PO TID 03/2304/25/2015 Inactive replaces 0.2mg dose nystatin 100,000 unit/gram topical cream RxNorm: 683577 Applica tion TOP BID 03/23/2015 06/20/2015 Inactive baclofen 20 mg tablet RxNorm: 700270 1 Tablet(s) PO TID as needed 0 03/23/2015 04/25/2015 Inactive Premarin 1.25 mg tablet RxNorm: 934242 1-2 Tablet(s) PO QD 03/23/20 15 04/25/2015 Inactive Klor-Con 8 mEq tablet,extended release RxNorm: 409003 1 Tablet( s) PO BID 03/23/2015 04/25/2015 Inactive cefdinir 300 mg capsule RxNorm: 716160 2 Capsule(s) PO QD 03/16/2015 03/25/2015 Inactive baclofen 20 mg tablet RxNorm: 221818 1 Tablet(s) PO TID as needed 0 03/02/2015 03/22/2015 Inactive allopurinol 300 mg tablet RxNorm: 771878 1 Tablet(s) PO QD TAKE ONE TABLET BY MOUTH EVERY DAY 02/22/2015 05/22/2015 Inactive Klor-Con M20 mEq tablet,extended release RxNorm: 212836 2 Tablet(s) PO BID to use with lasix 02/22/2015 06/20/2015 Inactive clonidine HCl 0.1 mg tablet RxNorm: 888022 1 Tablet(s) PO TID 02/1903/22/2015 Inactive replaces 0.2mg dose Lipitor 10 mg tablet RxNorm: 435990 1 Tablet(s) PO QHS 01/20/201506/2015 Inactive Lipitor 10 mg tablet RxNorm: 382263 1 Tablet(s) PO QHS 01/20/2015 Inactive Singulair 10 mg tablet RxNorm: 635794 1 Tablet(s) PO QD TAKE ONE TABLET BY MOUTH EVERY DAY 11/20/2014 05/18/2015 Inactive Lipitor 10 mg tablet RxNorm: 437906 1 Tablet(s) PO QHS 11/20/201408/2015 Inactive allopurinol 300 mg tablet RxNorm: 655679 1 Tablet(s) PO QD TAKE ONE TABLET BY MOUTH EVERY DAY 11/20/2014 02/16/2015 Inactive Bystolic 10 mg tablet RxNorm: 639173 1 Tablet(s) PO QAM TAKE ONE TABLET BY MOUTH EVERY MORNING 11/20/2014 04/22/2015 Inactive Klor-Con 8 mEq tablet,extended release RxNorm: 628786 1 Tablet( s) PO BID 11/20/2014 02/17/2015 Inactive baclofen 20 mg tablet RxNorm: 742259 1 Tablet(s) PO TID as needed 0 11/20/2014 01/21/2019 Inactive baclofen 20 mg tablet RxNorm: 235745 1 Tablet(s) PO TID as needed 0 10/27/2014 11/19/2014 Inactive baclofen 20 mg tablet RxNorm: 576236 1 Tablet(s) PO TID as needed 0 10/26/2014 03/01/2015 Inactive allopurinol 300 mg tablet RxNorm: 144468 1 Tablet(s) PO QD TAKE ONE TABLET BY MOUTH EVERY DAY 10/26/2014 11/20/2014 Inactive Bystolic 10 mg tablet RxNorm: 350277 1 Tablet(s) PO QAM TAKE ONE TABLET BY MOUTH EVERY MORNING 10/26/2014 11/20/2014 Inactive clonidine HCl 0.1 mg tablet RxNorm: 451232 1 Tablet(s) PO TID 09/2805/27/2019 Inactive replaces 0.2mg dose clonidine HCl 0.1 mg tablet RxNorm: 747185 1 Tablet(s) PO TID 09/2802/18/2015 Inactive replaces 0.2mg dose baclofen 20 mg tablet RxNorm: 025937 1 Tablet(s) PO TID as needed 1 11/01/2013 08/30/2014 Inactive Lipitor 10 mg tablet RxNorm: 842059 1 Tablet(s) PO QHS 08/31/2014 Inactive baclofen 20 mg tablet RxNorm: 077212 1 Tablet(s) PO TID as needed 1 11/01/2013 10/26/2014 Inactive triamterene 75 mg-hydrochlorothiazide 50 mg tablet RxNorm: 3 38363 1 Tablet(s) PO QD 08/31/2014 02/26/2015 Inactive Klor-Con 8 mEq tablet,extended release RxNorm: 692453 1 Tablet( s) PO BID 08/31/2014 11/20/2014 Inactive baclofen 20 mg tablet RxNorm: 152310 1 Tablet(s) PO TID as needed 1 09/30/2013 10/25/2014 Inactive baclofen 20 mg tablet RxNorm: 420589 1 Tablet(s) PO TID as needed 1 09/30/2013 08/31/2014 Inactive omeprazole 40 mg capsule,delayed release RxNorm: 226723 1 Capsu le(s) PO QD 07/21/2014 07/23/2015 Inactive Flonase 50 mcg/actuation nasal spray,suspension RxNorm: 8963 23 1 [place] NASAL BID 07/15/2014 04/09/2017 Inactive hydrocodone 10 mg-acetaminophen 325 mg tablet RxNorm: 593521 1-2 Tablet(s) QID as needed for pain TAKE ONE TO TWO TABLETS BY MOUTH FOUR TIMES A DAY . MUST LAST 30 DAYS 06/30/2014 07/27/2014 Inactive (Response to an electronic controlled substance refill request - RxReferenceNumber: [id number]) baclofen 20 mg tablet RxNorm: 220888 1 Tablet(s) PO TID as needed 1 07/31/2014 Inactive Singulair 10 mg tablet RxNorm: 666883 1 Tablet(s) PO QD TAKE ONE TABLET BY MOUTH EVERY DAY 05/25/2014 11/20/2014 Inactive Bystolic 10 mg tablet RxNorm: 084340 TAKE ONE TABLET BY MOUTH E VERY MORNING 05/25/2014 09/21/2014 Inactive allopurinol 300 mg tablet RxNorm: 733913 1 Tablet(s) PO QD TAKE ONE TABLET BY MOUTH EVERY DAY 05/25/2014 10/21/2014 Inactive baclofen 20 mg tablet RxNorm: 529307 1 Tablet(s) PO TID as needed 0 05/25/2014 06/29/2014 Inactive allopurinol 300 mg tablet RxNorm: 004822 TAKE ONE TABLET BY LOPEZ TH EVERY DAY 05/25/2014 09/21/2014 Inactive Singulair 10 mg tablet RxNorm: 642566 1 Tablet(s) PO QD TAKE ONE TABLET BY MOUTH EVERY DAY 05/25/2014 05/24/2014 Inactive Bystolic 10 mg tablet RxNorm: 788835 1 Tablet(s) PO QAM TAKE ONE TABLET BY MOUTH EVERY MORNING 05/25/2014 10/21/2014 Inactive metolazone 2.5 mg tablet RxNorm: 563215 1 Tablet(s) PO QD as ne eded for edema 05/18/2014 04/25/2015 Inactive Lasix 40 mg tablet RxNorm: 420557 1 Tablet(s) PO QAM s hould take potassium supplementation with this medication 05/14/2014 05/17/2014 Inactive hydrocodone 10 mg-acetaminophen 325 mg tablet RxNorm: 700142 1-2 Tablet(s) QID as needed for pain TAKE ONE TO TWO TABLETS BY MOUTH FOUR TIMES A DAY . MUST LAST 30 DAYS 05/07/2014 06/05/2014 Inactive (Response to an electronic controlled substance refill request - RxReferenceNumber: [id number]) alprazolam 0.5 mg tablet RxNorm: 468728 TAKE ONE TABLET BY MOUTH TWICE A DAY , MUST LAST 30 DAYS 05/07/2014 05/22/2016 Inactive (Response to a n electronic controlled substance refill request - RxReferenceNumber: [id number]) diclofenac sodium 75 mg tablet,delayed release RxNorm: 66197 6 1 Tablet(s) PO BID for pain 04/24/2014 07/20/2014 Inactive Celebrex 200 mg capsule RxNorm: 103417 TAKE ONE CAPSULE BY MOUT H EVERY DAY 04/24/2014 07/20/2014 Inactive alprazolam 0.5 mg tablet RxNorm: 667248 TAKE ONE TABLET BY MOUTH TWICE A DAY , MUST LAST 30 DAYS 03/24/2014 04/22/2014 Inactive (Response to a n electronic controlled substance refill request - RxReferenceNumber: [id number]) diclofenac sodium 75 mg tablet,delayed release RxNorm: 67134 6 1 Tablet(s) PO BID for pain 03/24/2014 04/24/2014 Inactive clonidine HCl 0.1 mg tablet RxNorm: 959469 1 Tablet(s) PO TID 03/2409/28/2014 Inactive replaces 0.2mg dose Klor-Con 8 mEq tablet,extended release RxNorm: 796814 1 Tablet( s) PO BID 02/26/2014 08/31/2014 Inactive diclofenac sodium 75 mg tablet,delayed release RxNorm: 67267 6 1 Tablet(s) PO BID for pain 02/25/2014 03/24/2014 Inactive hydrocodone 10 mg-acetaminophen 325 mg tablet RxNorm: 937304 1-2 Tablet(s) QID as needed for pain TAKE ONE TO TWO TABLETS BY MOUTH FOUR TIMES A DAY . MUST LAST 30 DAYS 02/25/2014 03/26/2014 Inactive (Response to an electronic controlled substance refill request - RxReferenceNumber: [id number]) alprazolam 0.5 mg tablet RxNorm: 097817 Tablet(s) PO BI D as needed for anxiety TAKE ONE TABLET BY MOUTH TWICE A DAY , MUST LAST 30 DAYS 02/25/2014 Inactive (Response to an electronic controlled [place] bstance refill request - RxReferenceNumber: [id number]) [AttnRPh: Saving apply/adjudicate RxGRP:SG20 RxBIN:[id number] RxPCN:HT ID#:[id number]] alprazolam 0.5 mg tablet RxNorm: 731999 Tablet(s) TAKE ONE TABLET BY MOUTH TWICE A DAY , MUST LAST 30 DAYS 01/27/2014 02/24/2014 Inactive (Respo nse to an electronic controlled substance refill request - RxReferenceNumber: [id number]) [AttnRPh: Saving apply/adjudicate RxGRP:SG20 RxBIN:[id number] RxPCN:HT ID#:[id number]] hydrocodone 10 mg-acetaminophen 325 mg tablet RxNorm: 879697 1-2 Tablet(s) QID as needed for pain TAKE ONE TO TWO TABLETS BY MOUTH FOUR TIMES A DAY . MUST LAST 30 DAYS 01/27/2014 02/24/2014 Inactive (Response to an electronic controlled substance refill request - RxReferenceNumber: [id number]) alprazolam 0.5 mg tablet RxNorm: 623912 TAKE ONE TABLET BY MOUTH TWICE A DAY , MUST LAST 30 DAYS 01/27/2014 01/26/2014 Inactive (Response to a n electronic controlled substance refill request - RxReferenceNumber: [id number]) Premarin 1.25 mg tablet RxNorm: 808812 1-2 Tablet(s) PO QD 01/28/20 14 07/25/2014 Inactive alprazolam 0.5 mg tablet RxNorm: 554695 TAKE ONE TABLET BY MOUTH TWICE A DAY , MUST LAST 30 DAYS 01/27/2014 01/27/2014 Inactive (Response to a n electronic controlled substance refill request - RxReferenceNumber: [id number]) hydrocodone 10 mg-acetaminophen 325 mg tablet RxNorm: 631312 TAKE ONE TO TWO TABLETS BY MOUTH FOUR TIMES A DAY . MUST LAST 30 DAYS 01/27/20142013 Inactive (Response to an electronic controlled [place] bstance refill request - RxReferenceNumber: [id number]) Celebrex 200 mg capsule RxNorm: 909185 1 Capsule(s) PO QD TAKE ONE CAPSULE BY MOUTH EVERY DAY 12/29/2013 04/27/2014 Inactive hydrocodone 10 mg-acetaminophen 325 mg tablet RxNorm: 623133 1-2 Tablet(s) PO QID as needed for severe pain 12/29/2013 01/27/2014 Inactive allopurinol 300 mg tablet RxNorm: 747078 1 Tablet(s) PO QD TAKE ONE TABLET BY MOUTH EVERY DAY 12/29/2013 05/24/2014 Inactive alprazolam 0.5 mg tablet RxNorm: 426275 TAKE ONE TABLET BY MOUTH TWICE A DAY , MUST LAST 30 DAYS 12/29/2013 01/27/2014 Inactive (Response to a n electronic controlled substance refill request - RxReferenceNumber: [id number]) Celebrex 200 mg capsule RxNorm: 405659 1 Capsule(s) PO QD TAKE ONE CAPSULE BY MOUTH EVERY DAY 12/29/2013 12/29/2013 Inactive Bystolic 10 mg tablet RxNorm: 110913 1 Tablet(s) PO QAM TAKE ONE TABLET BY MOUTH EVERY MORNING 12/29/2013 05/24/2014 Inactive Bystolic 10 mg tablet RxNorm: 457491 1 Tablet(s) PO QAM TAKE ONE TABLET BY MOUTH EVERY MORNING 12/29/2013 12/29/2013 Inactive Singulair 10 mg tablet RxNorm: 285943 1 Tablet(s) PO QD TAKE ONE TABLET BY MOUTH EVERY DAY 12/29/2013 05/25/2014 Inactive hydrocodone 10 mg-acetaminophen 325 mg tablet RxNorm: 403596 TAKE ONE TO TWO TABLETS BY MOUTH FOUR TIMES A DAY . MUST LAST 30 DAYS 12/29/20132013 Inactive (Response to an electronic controlled [place] bstance refill request - RxReferenceNumber: [id number]) Trazadone 75mg Tablet RxNorm: 1 Tablet(s) PO QHS as needed 03/23/2014 Inactive Trazadone 75mg Tablet RxNorm: 1 Tablet(s) PO QHS 12/24/20132014 Inactive Soma 350 mg tablet RxNorm: 822712 Tablet(s) PO TAKE ON E TABLET BY MOUTH THREE TIMES A DAY NEEDED FOR MUSCLE SPASMS. THIS MUST LAST 30 DAYS BETWEEN REFILLS. 12/10/2013 12/22/2013 Inactive (Appended: Cont rolled substance eRx refill - RxReferenceNumber: [id number]) diclofenac sodium 75 mg tablet,delayed release RxNorm: 29382 6 1 Tablet(s) PO BID for pain 12/10/2013 02/24/2014 Inactive allopurinol 300 mg tablet RxNorm: 495074 1 Tablet(s) PO QD 11/20/19 14 12/29/2013 Inactive alprazolam 0.5 mg tablet RxNorm: 105688 2 Tablet(s) PO BID 11/13/19 14 12/29/2013 Inactive prn clonidine 0.1 mg tablet RxNorm: 981363 1 Tablet(s) PO TID 11/12/2013 02/09/2014 Inactive replaces 0.2mg dose Klor-Con M20 mEq tablet,extended release RxNorm: 456295 2 Tablet(s) PO BID to use with lasix 11/12/2013 05/10/2014 Inactive Singulair 10 mg tablet RxNorm: 527099 1 Tablet(s) PO QD 11/12/2013 Inactive hydrocodone 10 mg-acetaminophen 325 mg tablet RxNorm: 178582 1-2 Tablet(s) PO QID as needed for severe pain 11/12/2013 12/28/2013 Inactive Bystolic 10 mg tablet RxNorm: 718736 1 Tablet(s) PO QAM 11/12/2013 Inactive Soma 350 mg tablet RxNorm: 973361 Tablet(s) PO TAKE ON E TABLET BY MOUTH THREE TIMES A DAY NEEDED FOR MUSCLE SPASMS. THIS MUST LAST 30 DAYS BETWEEN REFILLS. 10/13/2013 12/10/2013 Inactive (Appended: Cont rolled substance eRx refill - RxReferenceNumber: [id number]) hydrocodone 10 mg-acetaminophen 325 mg tablet RxNorm: 633257 1-2 Tablet(s) PO QID as needed for severe pain 10/03/2013 11/11/2013 Inactive diclofenac sodium 75 mg tablet,delayed release RxNorm: 71826 8 1 Tablet(s) PO BID for pain 09/11/2013 12/10/2013 Inactive alprazolam 0.5 mg tablet RxNorm: 251128 1 Tablet(s) PO BID May refill on 04/26/13 09/01/2013 10/30/2013 Inactive prn hydrocodone 10 mg-acetaminophen 325 mg tablet RxNorm: 601829 1-2 Tablet(s) PO QID as needed for severe pain 09/01/2013 10/02/2013 Inactive triamterene 75 mg-hydrochlorothiazide 50 mg tablet RxNorm: 3 04274 1 Tablet(s) PO QD 08/04/2013 08/31/2014 Inactive cyclobenzaprine 10 mg tablet RxNorm: 800473 1 Tablet(s) PO TID prn spasm 08/04/2013 08/13/2013 Inactive clonidine 0.1 mg tablet RxNorm: 497258 1 Tablet(s) PO TID 08/04/2013 11/11/2013 Inactive replaces 0.2mg dose cyclobenzaprine 10 mg tablet RxNorm: 033703 1 Tablet(s) PO TID prn spasm 07/23/2013 08/01/2013 Inactive hydrocodone 10 mg-acetaminophen 325 mg tablet RxNorm: 578231 2 1-2 Tablet(s) PO QID as needed for severe pain 06/09/2013 08/07/2013 Inactive Singulair 10 mg tablet RxNorm: 866796 1 Tablet(s) PO QD 05/29/2013 Inactive Klor-Con 8 mEq tablet,extended release RxNorm: 148314 1 Tablet( s) PO BID 05/29/2013 02/26/2014 Inactive allopurinol 300 mg tablet RxNorm: 849147 1 Tablet(s) PO QD 05/29/20 13 11/19/2013 Inactive Bystolic 10 mg tablet RxNorm: 470625 1 Tablet(s) PO QAM take one daily in the morning. 05/29/2013 11/11/2013 Inactive scopolamine 1.5 mg 72 hr Transderm Patch RxNorm: 631109 Application TD Q72H for motion sickness 05/26/2013 07/22/2013 Inactive Soma 350 mg tablet RxNorm: 412064 1 Tablet(s) PO TID as needed for spasm 05/19/2013 10/13/2013 Inactive diclofenac sodium 75 mg tablet,delayed release RxNorm: 60262 8 1 Tablet(s) PO BID for pain 05/14/2013 07/22/2013 Inactive allopurinol 300 mg tablet RxNorm: 883031 1 Tablet(s) PO QD 04/25/20 13 05/28/2013 Inactive alprazolam 0.5 mg tablet RxNorm: 833317 1 Tablet(s) PO BID May refill on 04/26/13 04/25/2013 06/23/2013 Inactive prn Celebrex 200 mg capsule RxNorm: 520962 1 Capsule(s) PO QD 04/16/2013 12/29/2013 Inactive alprazolam 0.5 mg tablet RxNorm: 445082 1 Tablet(s) PO BID May refill on 04/26/13 04/16/2013 04/24/2013 Inactive prn Soma 350 mg tablet RxNorm: 507179 1 Tablet(s) PO TID as needed for spasm 04/16/2013 No Stop Date Active Lasix 40 mg tablet RxNorm: 504439 1 Tablet(s) PO QAM s hould take potassium supplementation with this medication 04/16/2013 06/14/2013 Inactive clonidine 0.1 mg tablet RxNorm: 023344 1 Tablet(s) PO TID 04/16/2013 08/03/2013 Inactive replaces 0.2mg dose prednisone 20 mg tablet RxNorm: 239588 1 Tablet(s) PO BID 04/16/2013 04/20/2013 Inactive diclofenac sodium 75 mg tablet,delayed release RxNorm: 06691 8 1 Tablet(s) PO BID for pain 04/14/2013 05/13/2013 Inactive hydrocodone 10 mg-acetaminophen 325 mg tablet RxNorm: 061109 2 1-2 Tablet(s) PO QID as needed for severe pain 04/14/2013 No Stop Date Active Lasix 40 mg tablet RxNorm: 552836 1 Tablet(s) PO QAM s hould take potassium supplementation with this medication 03/31/2013 04/15/2013 Inactive Celebrex 200 mg capsule RxNorm: 295005 1 Capsule(s) PO QD 03/31/2013 04/15/2013 Inactive alprazolam 0.5 mg tablet RxNorm: 718216 1 Tablet(s) PO BID 03/28/20 13 04/15/2013 Inactive prn hydrocodone 10 mg-acetaminophen 325 mg tablet RxNorm: 809854 2 1-2 Tablet(s) PO QID as needed for severe pain 03/10/2013 No Stop Date Active metformin ER 500 mg 24 hr tablet,extended release RxNorm: 86 1018 1 Tablet(s) PO QD 03/06/2013 07/22/2013 Inactive clindamycin 300 mg capsule RxNorm: 359134 2 Capsule(s) PO TID 03/0503/14/2013 Inactive Zaroxolyn 2.5 mg tablet RxNorm: 412445 1 Tablet(s) PO QAM 03/05/2013 05/19/2015 Inactive amlodipine 10 mg tablet RxNorm: 731288 1 Tablet(s) PO QD 03/03/2013 0 05/25/2013 Inactive Norvasc 10 mg tablet RxNorm: 719005 1 Tablet(s) PO QD 02/28/201307/11 Inactive Celebrex 200 mg capsule RxNorm: 282259 1 Capsule(s) PO QD 02/28/2013 03/30/2013 Inactive diclofenac sodium 75 mg tablet,delayed release RxNorm: 90361 8 1 Tablet(s) PO BID for pain 02/14/2013 03/15/2013 Inactive Soma 350 mg tablet RxNorm: 303229 1 Tablet(s) PO TID as needed for spasm 02/14/2013 No Stop Date Active hydrocodone 10 mg-acetaminophen 325 mg tablet RxNorm: 150067 2 1-2 Tablet(s) PO QID as needed for severe pain 02/14/2013 No Stop Date Active Norvasc 10 mg tablet RxNorm: 410268 1 Tablet(s) PO QD 02/10/201302/09 Inactive Celebrex 200 mg capsule RxNorm: 189930 1 Capsule(s) PO QD 01/27/2013 01/26/2013 Inactive Premarin 1.25 mg tablet RxNorm: 584138 1-2 Tablet(s) PO QD 01/28/20 13 06/25/2013 Inactive alprazolam 0.5 mg tablet RxNorm: 344388 1 Tablet(s) PO BID 01/28/20 13 02/25/2013 Inactive prn amlodipine 5 mg tablet RxNorm: 233106 1 Tablet(s) PO QD 01/27/2013 Inactive Celebrex 200 mg capsule RxNorm: 201016 1 Capsule(s) PO QD 01/27/2013 02/27/2013 Inactive gabapentin 600 mg tablet RxNorm: 386695 1 Tablet(s) PO QHS 01/16/20 13 07/22/2013 Inactive Soma 350 mg tablet RxNorm: 257105 1 Tablet(s) PO TID as needed for spasm 01/15/2013 No Stop Date Active hydrocodone 10 mg-acetaminophen 325 mg tablet RxNorm: 767767 2 1-2 Tablet(s) PO QID as needed for severe pain 01/15/2013 No Stop Date Active Soma 350 mg tablet RxNorm: 344837 1 Tablet(s) PO TID as needed for spasm 01/13/2013 No Stop Date Active alprazolam 0.5 mg tablet RxNorm: 658140 1 Tablet(s) PO BID 12/31/19 13 01/26/2013 Inactive prn diclofenac sodium 75 mg tablet,delayed release RxNorm: 35886 8 1 Tablet(s) PO BID for pain 12/09/2012 01/07/2013 Inactive gabapentin 600 mg tablet RxNorm: 120734 1 Tablet(s) PO QHS 12/10/19 13 01/07/2013 Inactive hydrocodone 10 mg-acetaminophen 325 mg tablet RxNorm: 401971 2 1-2 Tablet(s) PO QID as needed for severe pain 12/02/2012 No Stop Date Active Levaquin 750 mg tablet RxNorm: 313152 1 Tablet(s) PO QD 11/21/2012 Inactive Singulair 10 mg tablet RxNorm: 158164 1 Tablet(s) PO QD 11/11/2012 Inactive clonidine 0.2 mg tablet RxNorm: 036158 1 Tablet(s) PO TID 11/11/2012 04/15/2013 Inactive alprazolam 0.5 mg tablet RxNorm: 983170 1 Tablet(s) PO BID 11/12/19 13 12/10/2012 Inactive prn Klor-Con 8 mEq tablet,extended release RxNorm: 224063 1 Tablet( s) PO BID 11/11/2012 03/04/2013 Inactive hydrocodone 10 mg-acetaminophen 325 mg tablet RxNorm: 375359 2 1-2 Tablet(s) PO QID as needed for severe pain 11/06/2012 No Stop Date Active alprazolam 0.5 mg tablet RxNorm: 952470 1 Tablet(s) PO BID 10/15/19 13 11/10/2012 Inactive prn hydrocodone-acetaminophen 10 mg-325 mg tablet RxNorm: 344550 2 1-2 Tablet(s) PO QID as needed for severe pain 10/10/2012 10/09/2012 Inactive allopurinol 300 mg tablet RxNorm: 476198 1 Tablet(s) PO QD 09/20/19 13 12/18/2012 Inactive alprazolam 0.5 mg tablet RxNorm: 056394 1 Tablet(s) PO BID 09/17/19 13 10/14/2012 Inactive prn hydrocodone-acetaminophen 10 mg-325 mg tablet RxNorm: 650886 2 1-2 Tablet(s) PO QID as needed for severe pain 08/22/2012 08/21/2012 Inactive Norvasc 10 mg tablet RxNorm: 950889 1 Tablet(s) PO QD 08/12/201201/10 Inactive Premarin 1.25 mg tablet RxNorm: 069710 1-2 Tablet(s) PO QD 07/30/2012/26/2012 Inactive alprazolam 0.5 mg tablet RxNorm: 099194 1 Tablet(s) PO BID 07/29/2008/27/2012 Inactive prn Klor-Con 8 mEq tablet,extended release RxNorm: 331355 1 Tablet( s) PO BID 07/29/2012 11/10/2012 Inactive hydrocodone-acetaminophen 10 mg-325 mg tablet RxNorm: 035089 2 1-2 Tablet(s) PO QID as needed for severe pain 07/29/2012 No Stop Date Active Premarin 1.25 mg tablet RxNorm: 209942 1-2 Tablet(s) PO QD 07/29/2007/29/2012 Inactive clonidine 0.2 mg tablet RxNorm: 847285 1 Tablet(s) PO TID 07/29/2012 10/28/2012 Inactive ketorolac 10 mg tablet RxNorm: 455070 1 Tablet(s) PO QID prn he adache 07/18/2012 No Stop Date Active hydrocodone-acetaminophen 10 mg-325 mg tablet RxNorm: 366245 2 1-2 Tablet(s) PO QID as needed for severe pain 07/03/2012 No Stop Date Active amlodipine 5 mg tablet RxNorm: 616035 1 Tablet(s) PO QD 07/02/2012 Inactive allopurinol 300 mg tablet RxNorm: 173949 1 Tablet(s) PO QD 07/02/20 12 09/19/2012 Inactive Celebrex 200 mg capsule RxNorm: 447641 1 Capsule(s) PO QD for j oint pain 06/26/2012 10/23/2012 Inactive diclofenac sodium 75 mg tablet,delayed release RxNorm: 49048 8 1 Tablet(s) PO BID for pain 06/19/2012 09/16/2012 Inactive hydrocodone-acetaminophen 10 mg-325 mg tablet RxNorm: 756861 2 1-2 Tablet(s) PO QID as needed for severe pain 06/10/2012 No Stop Date Active alprazolam 0.5 mg tablet RxNorm: 368702 1 Tablet(s) PO BID 06/03/20 12 07/02/2012 Inactive prn ketorolac 10 mg tablet RxNorm: 804320 1 Tablet(s) PO Q8H 05/27/2012 0 01/21/2019 Inactive as needed for headache hydrocodone-acetaminophen 10 mg-325 mg tablet RxNorm: 013922 2 1-2 Tablet(s) PO QID as needed for severe pain 05/15/2012 No Stop Date Active allopurinol 300 mg tablet RxNorm: 164397 1 Tablet(s) PO QD 05/14/20 12 06/12/2012 Inactive allopurinol 300 mg tablet RxNorm: 512434 1 Tablet(s) PO QD 05/14/20 12 05/13/2012 Inactive amlodipine 5 mg tablet RxNorm: 183688 1 Tablet(s) PO QD 05/01/2012 Inactive amlodipine 5 mg Tab RxNorm: 955934 1 Tablet(s) PO QD 05/01/201204/30 Inactive Celebrex 200 mg capsule RxNorm: 042774 1 Capsule(s) PO QD for j oint pain 05/01/2012 06/25/2012 Inactive Singulair 10 mg tablet RxNorm: 320059 1 Tablet(s) PO QD 05/01/2012 Inactive alprazolam 0.5 mg tablet RxNorm: 128782 1 Tablet(s) PO BID 05/01/20 12 05/30/2012 Inactive prn Celebrex 200 mg Cap RxNorm: 883221 1 Capsule(s) PO QD for joint radu n 05/01/2012 04/30/2012 Inactive hydrocodone-acetaminophen 10 mg-325 mg tablet RxNorm: 307105 2 1-2 Tablet(s) PO QID as needed for severe pain 04/19/2012 No Stop Date Active Lasix 40 mg tablet RxNorm: 030078 1 Tablet(s) PO QAM s hould take potassium supplementation with this medication 04/05/2012 06/03/2012 Inactive alprazolam 0.5 mg Tab RxNorm: 778505 1 Tablet(s) PO BID 04/05/2012 Inactive prn hydrocodone-acetaminophen 10 mg-325 mg Tab RxNorm: 2172908 1-2 Tablet(s) PO QID as needed for severe pain 03/25/2012 03/24/2012 Inactive clonidine 0.2 mg Tab RxNorm: 876449 1 Tablet(s) PO TID 03/08/2012 Inactive alprazolam 0.5 mg Tab RxNorm: 608212 1 Tablet(s) PO BID 03/08/2012 Inactive prn Soma 350 mg tablet RxNorm: 186654 1 Tablet(s) PO TID for spasm 02/0903/18/2012 Inactive clonidine 0.2 mg tablet RxNorm: 035305 1 Tablet(s) PO TID 03/08/2012 07/28/2012 Inactive Celebrex 200 mg Cap RxNorm: 177837 1 Capsule(s) PO QD for joint radu n 03/01/2012 04/29/2012 Inactive amlodipine 5 mg Tab RxNorm: 982928 1 Tablet(s) PO QD 02/26/201202/24 Inactive amlodipine 5 mg Tab RxNorm: 722930 1 Tablet(s) PO QD 02/26/201204/25 Inactive Bactroban 2 % Ointment RxNorm: 189649 Application TOP QID to sores 02/23/2012 No Stop Date Active amlodipine 2.5 mg tablet RxNorm: 171449 1 Tablet(s) PO QHS 02/20/20 12 02/25/2012 Inactive doxycycline hyclate 100 mg Cap RxNorm: 5545625 1 Capsule(s) PO BID 02/20/2012 02/29/2012 Inactive hydrocodone-acetaminophen 10 mg-325 mg Tab RxNorm: 9133675 1-2 T ablet(s) PO QID 02/08/2012 No Stop Date Active alprazolam 0.5 mg Tab RxNorm: 180171 1 Tablet(s) PO BID 02/08/2012 Inactive prn Singulair 10 mg Tab RxNorm: 312813 1 Tablet(s) PO QD 02/08/201204/30 Inactive Soma 350 mg Tab RxNorm: 790203 1 Tablet(s) PO TID for spasm 012 03/07/2012 Inactive Soma 350 mg Tab RxNorm: 657272 1 Tablet(s) PO TID for spasm 012 02/05/2012 Inactive diclofenac sodium 75 mg tablet,delayed release RxNorm: 49240 8 1 Tablet(s) PO BID for pain 02/01/2012 03/18/2012 Inactive Celebrex 200 mg Cap RxNorm: 648678 1 Capsule(s) PO QD for joint radu n 01/30/2012 02/28/2012 Inactive Lasix 40 mg Tab RxNorm: 188471 1 Tablet(s) PO QAM 01/24/2012 03/18/20 12 Inactive potassium chloride ER 20 mEq tablet,extended release(part/cr yst) RxNorm: 273576 2 Tablet(s) PO BID 01/24/2012 02/22/2012 Inactive alprazolam 0.5 mg Tab RxNorm: 683288 1 Tablet(s) PO BID 01/11/2012 Inactive prn hydrocodone-acetaminophen 10 mg-325 mg Tab RxNorm: 9735808 1-2 T ablet(s) PO QID 01/11/2012 No Stop Date Active Ambien 10 mg Tab RxNorm: 573587 1 Tablet(s) PO QHS 01/11/2012 012 Inactive Klor-Con 8 mEq Tab RxNorm: 036276 1 Tablet(s) PO BID 01/11/201201/22 Inactive diclofenac sodium 75 mg Tab, Delayed Release RxNorm: 300554 1 Tablet(s) PO BID for pain 01/10/2012 01/31/2012 Inactive Ambien 10 mg Tab RxNorm: 918785 1 Tablet(s) PO QHS 12/11/2011 012 Inactive alprazolam 0.5 mg Tab RxNorm: 223351 1 Tablet(s) PO BID 12/11/2011 Inactive prn hydrocodone 10 mg-acetaminophen 325 mg tablet RxNorm: 478749 1-2 Tablet(s) PO TID 11/28/2011 No Stop Date Active as needed for pa in - Previous quantity #240, will start dosing for #180 in April 2011 per Doctor Td. Ambien 10 mg Tab RxNorm: 341456 1 Tablet(s) PO QHS 11/09/2011 012 Inactive alprazolam 0.5 mg Tab RxNorm: 896150 1 Tablet(s) PO BID 11/09/2011 Inactive prn hydrocodone-acetaminophen 10 mg-325 mg Tab RxNorm: 1770808 1-2 T ablet(s) PO TID 11/06/2011 No Stop Date Active as needed for pain - Previous quantity #240, will start dosing for #180 in April 2011 per Doctor Td. Singulair 10 mg Tab RxNorm: 714708 1 Tablet(s) PO QD 10/13/201110/12 Inactive Singulair 10 mg Tab RxNorm: 298743 1 Tablet(s) PO QD 10/13/201102/06 Inactive hydrocodone-acetaminophen 10 mg-325 mg Tab RxNorm: 6620804 1-2 T ablet(s) PO TID 10/10/2011 10/09/2011 Inactive as needed for pain - Previous quantity #240, will start dosing for #180 in April 2011 per Doctor Td. hydrocodone-acetaminophen 10 mg-325 mg Tab RxNorm: 8934882 1-2 T ablet(s) PO TID 10/09/2011 No Stop Date Active as needed for pain - Previous quantity #240, will start dosing for #180 in April 2011 per Doctor Td. Klor-Con 8 mEq Tab RxNorm: 675061 1 Tablet(s) PO BID 10/02/201101/09 Inactive triamterene 75 mg-hydrochlorothiazide 50 mg tablet RxNorm: 3 56085 1 Tablet(s) PO QD 09/14/2011 03/06/2013 Inactive Ambien 10 mg Tab RxNorm: 778717 1 Tablet(s) PO QHS 09/14/2011 012 Inactive hydrocodone-acetaminophen 10 mg-325 mg Tab RxNorm: 3640634 1-2 T ablet(s) PO TID 09/14/2011 No Stop Date Active as needed for pain - Previous quantity #240, will start dosing for #180 in April 2011 per Doctor Td. alprazolam 0.5 mg Tab RxNorm: 730201 1 Tablet(s) PO BID 09/14/2011 Inactive prn Zithromax 500 mg Tab RxNorm: 365891 1 Tablet(s) PO QD 09/13/201109/10 Inactive prednisone 20 mg Tab RxNorm: 665336 1 Tablet(s) PO BID 08/31/2011 Inactive Ambien 10 mg Tab RxNorm: 113718 1 Tablet(s) PO QHS 08/17/2011 011 Inactive hydrocodone-acetaminophen 10 mg-325 mg Tab RxNorm: 6180713 1-2 T ablet(s) PO TID 08/17/2011 No Stop Date Active as needed for pain - Previous quantity #240, will start dosing for #180 in April 2011 per Doctor Td. clonidine 0.2 mg Tab RxNorm: 510005 1 Tablet(s) PO TID 08/17/201112/2011 Inactive Ambien 10 mg Tab RxNorm: 211214 1 Tablet(s) PO QHS 08/17/2011 019 Inactive alprazolam 0.5 mg Tab RxNorm: 027813 1 Tablet(s) PO BID 08/17/2011 Inactive prn hydrocodone-acetaminophen 10 mg-325 mg Tab RxNorm: 9855277 1-2 T ablet(s) PO TID 08/17/2011 08/16/2011 Inactive as needed for pain - Previous quantity #240, will start dosing for #180 in April 2011 per Doctor Td. Singulair 10 mg Tab RxNorm: 494535 1 Tablet(s) PO QD 08/17/201108/16 Inactive Klor-Con 8 mEq Tab RxNorm: 594237 1 Tablet(s) PO QD 08/17/20112011 Inactive alprazolam 0.5 mg Tab RxNorm: 129979 1 Tablet(s) PO BID 07/20/2011 Inactive prn Ambien 10 mg Tab RxNorm: 258852 1 Tablet(s) PO QHS 07/20/2011 012 Inactive Singulair 10 mg Tab RxNorm: 578243 1 Tablet(s) PO QD 07/20/201107/19 Inactive Premarin 1.25 mg tablet RxNorm: 955144 2 Tablet(s) PO QD 07/20/2011 0 01/21/2019 Inactive Premarin 1.25 mg tablet RxNorm: 434321 1-2 Tablet(s) PO QD 07/20/20 11 12/16/2011 Inactive Premarin 1.25 mg Tab RxNorm: 716048 1-2 Tablet(s) PO QD 07/06/2011 Inactive alprazolam 0.5 mg Tab RxNorm: 133763 1 Tablet(s) PO BID 06/22/2011 Inactive prn alprazolam 0.5 mg Tab RxNorm: 012068 1 Tablet(s) PO BID 06/22/2011 Inactive prn Premarin 1.25 mg Tab RxNorm: 619312 1 Tablet(s) PO QD m ay do 90 day fill if desired 06/22/2011 07/05/2011 Inactive hydrocodone-acetaminophen 10 mg-325 mg Tab RxNorm: 2521918 1-2 T ablet(s) PO TID 06/22/2011 No Stop Date Active as needed for pain - Previous quantity #240, will start dosing for #180 in April 2011 per Doctor Td. clonidine 0.2 mg Tab RxNorm: 733242 1 Tablet(s) PO TID 05/25/201103/2011 Inactive triamterene-hydrochlorothiazide 75 mg-50 mg Tab RxNorm: 3108 18 1 Tablet(s) PO QD 05/25/2011 09/13/2011 Inactive alprazolam 0.5 mg Tab RxNorm: 726243 1 Tablet(s) PO BID 05/25/2011 Inactive prn hydrocodone-acetaminophen 10 mg-325 mg Tab RxNorm: 9561465 1-2 T ablet(s) PO TID 05/25/2011 No Stop Date Active as needed for pain - Previous quantity #240, will start dosing for #180 in April 2011 per Doctor Td. Robaxin-750 750 mg Tab RxNorm: 937978 2 Tablet(s) PO QHS 05/22/2011 Inactive prn spasm hydrocodone-acetaminophen 10 mg-325 mg Tab RxNorm: 9466966 1-2 T ablet(s) PO TID 04/26/2011 No Stop Date Active as needed for pain - Previous quantity #240, will start dosing for #180 in April 2011 per Doctor Td. alprazolam 0.5 mg Tab RxNorm: 265307 1 Tablet(s) PO BID 04/25/2011 Inactive prn Klor-Con 8 mEq Tab RxNorm: 477022 1 Tablet(s) PO QD 03/30/20112010 Inactive Klor-Con 8 mEq Tab RxNorm: 738927 1 Tablet(s) PO QD 03/29/20112010 Inactive hydrocodone-acetaminophen 10 mg-325 mg Tab RxNorm: 3955841 1-2 T ablet(s) PO TID 03/20/2011 04/25/2011 Inactive as needed for pain - Previous quantity #240, will start dosing for #180 in April 2011 per Doctor Td. alprazolam 0.5 mg Tab RxNorm: 928662 1 Tablet(s) PO BID prn 011 03/30/2011 Inactive Ambien 10 mg Tab RxNorm: 256846 1 Tablet(s) PO QHS 03/01/2011 011 Inactive cyclobenzaprine 10 mg Tab RxNorm: 537070 1 Tablet(s) PO TID 011 03/18/2012 Inactive cyclobenzaprine 10 mg Tab RxNorm: 566014 1 Tablet(s) PO TID 011 01/08/2011 Inactive cyclobenzaprine 10 mg Tab RxNorm: 990525 1 Tablet(s) PO TID 011 12/20/2010 Inactive terbinafine 250 mg Tab RxNorm: 371280 1 Tablet(s) PO QD 12/12/2010 Inactive triamterene-hydrochlorothiazide 75 mg-50 mg Tab RxNorm: 3108 18 1 Tablet(s) PO QD 12/07/2010 06/04/2011 Inactive Klor-Con 8 8 mEq Tab RxNorm: 972205 1 Tablet(s) PO QD 12/07/201001/08 Inactive Premarin 1.25 mg Tab RxNorm: 383253 2 Tablet(s) PO QD 12/07/201001/08 Inactive clonidine 0.2 mg Tab RxNorm: 625764 1 Tablet(s) PO TID 12/07/2010 Inactive hydrocodone-acetaminophen 7.5 mg-650 mg Tab RxNorm: 863704 1 Ta blet(s) PO Q4H 12/05/2010 01/21/2019 Inactive hydrocodone-acetaminophen 7.5 mg-650 mg Tab RxNorm: 473346 1 Ta blet(s) PO Q4H 10/26/2010 11/14/2010 Inactive hydrocodone-acetaminophen 7.5 mg-650 mg Tab RxNorm: 163654 1 Ta blet(s) PO Q4H 10/13/2010 10/25/2010 Inactive hydrocodone-acetaminophen 7.5 mg-650 mg Tab RxNorm: 994246 1 Ta blet(s) PO Q4H 09/15/2010 09/12/2010 Inactive alprazolam 0.5 mg Tab RxNorm: 531806 1 Tablet(s) PO BID prn 011 09/12/2010 Inactive terbinafine 250 mg Tab RxNorm: 247748 1 Tablet(s) PO QD 09/05/2010 Inactive hydrocodone-acetaminophen 7.5 mg-650 mg Tab RxNorm: 513567 1 Ta blet(s) PO Q4H 08/29/2010 09/17/2010 Inactive alprazolam 0.5 mg Tab RxNorm: 177288 1 Tablet(s) PO BID prn 010 09/27/2010 Inactive alprazolam 0.5 mg Tab RxNorm: 856907 1 Tablet(s) PO BID prn 010 09/06/2010 Inactive Klor-Con 8 mEq Tab RxNorm: 022295 1 Tablet(s) PO QD 08/08/20102010 Inactive hydrocodone-acetaminophen 7.5 mg-650 mg Tab RxNorm: 384168 1 Ta blet(s) PO Q4H 08/08/2010 08/27/2010 Inactive Ambien 10 mg Tab RxNorm: 692143 1 Tablet(s) PO QHS 08/08/2010 Inactive clonidine 0.2 mg Tab RxNorm: 569963 1 Tablet(s) PO TID 08/08/2010 Inactive Premarin 1.25 mg Tab RxNorm: 317397 2 Tablet(s) PO QD 08/08/201009/12 Inactive Ambien 10 mg Tab RxNorm: 654186 1 Tablet(s) PO QHS 07/18/2010 010 Inactive alprazolam 0.5 mg Tab RxNorm: 149015 1 Tablet(s) PO BID prn 010 08/07/2010 Inactive hydrocodone-acetaminophen 7.5 mg-650 mg Tab RxNorm: 193542 1 Ta blet(s) PO Q4H 07/12/2010 07/31/2010 Inactive clonidine 0.2 mg Tab RxNorm: 368716 1 Tablet(s) PO TID 06/20/2010 Inactive terbinafine 250 mg Tab RxNorm: 933390 1 Tablet(s) PO QD 05/24/2010 Inactive Clonidine 0.2 mg Tab RxNorm: 707575 1 Tablet(s) PO TID 05/24/201006/2010 Inactive Ambien 10 mg Tab RxNorm: 423974 1 Tablet(s) PO QHS 05/24/2010 010 Inactive alprazolam 0.5 mg Tab RxNorm: 296405 1 Tablet(s) PO BID 05/24/2010 Inactive Klor-Con 8 mEq Tab RxNorm: 477195 1 Tablet(s) PO QD 05/24/20102009 Inactive alprazolam 0.5 mg Tab RxNorm: 592527 2 Tablet(s) PO QD prn 05/24/20 10 07/17/2010 Inactive triamterene-hydrochlorothiazide 75 mg-50 mg Tab RxNorm: 3108 18 1 Tablet(s) PO QD 05/24/2010 11/19/2010 Inactive Ambien 10 mg Tab RxNorm: 045520 1 Tablet(s) PO QHS 05/23/2010 010 Inactive Alprazolam 0.5 mg Tab RxNorm: 228940 2 Tablet(s) PO QD prn 05/23/20 10 05/23/2010 Inactive Premarin 1.25 mg Tab RxNorm: 679196 2 Tablet(s) PO QD 05/19/201007/12 Inactive Hydrocodone-Acetaminophen 7.5 mg-650 mg Tab RxNorm: 585645 1 Ta blet(s) PO Q4H 05/19/2010 03/20/2011 Inactive Prednisone 20 mg Tab RxNorm: 064453 1 Tablet(s) PO BID 05/17/2010 Inactive Prednisone 20 mg Tab RxNorm: 232377 1 Tablet(s) PO BID 05/06/201001/2010 Inactive Premarin 1.25 mg Tab RxNorm: 071229 Tablet(s) PO 2 M-W-F, and 1 Qh-Xq-Zlz-Sun 05/05/2010 08/02/2010 Inactive Premarin 1.25 mg Tab RxNorm: 348485 Tablet(s) PO 2 M-W-F, and 1 Ev-Yk-Obx-Sun 05/04/2010 05/04/2010 Inactive Premarin 1.25 mg Tab RxNorm: 147008 Tablet(s) PO 2 M-W-F, and 1 Vo-Kv-QtqSun 05/04/2010 05/03/2010 Inactive Prednisone 20 mg Tab RxNorm: 848616 1 Tablet(s) PO BID 04/27/2010 Inactive Alprazolam 0.5 mg Tab RxNorm: 153774 2 Tablet(s) PO QD prn 04/26/2005/22/2010 Inactive Clindamycin 300 mg Cap RxNorm: 375844 2 Capsule(s) PO TID 04/05/2010 04/18/2010 Inactive Terbinafine 250 mg Tab RxNorm: 597463 1 Tablet(s) PO QD 04/04/2010 Inactive Hydrocodone-Acetaminophen 7.5 mg-650 mg Tab RxNorm: 189326 1 Ta blet(s) PO Q4H 03/30/2010 04/18/2010 Inactive Avelox 400 mg Tab RxNorm: 436785 1 Tablet(s) PO QD 03/09/2010 010 Inactive Hydrocodone-Acetaminophen 7.5 mg-650 mg Tab RxNorm: 106922 1 Ta blet(s) PO Q4H 03/08/2010 03/27/2010 Inactive Alprazolam 0.5 mg Tab RxNorm: 281143 2 Tablet(s) PO QD prn 03/08/20 10 04/25/2010 Inactive Klor-Con 8 mEq Tab RxNorm: 533805 1 Tablet(s) PO QD when takes lasi x 03/07/2010 09/29/2019 Inactive Premarin 1.25 mg Tab RxNorm: 324536 1 Tablet(s) PO QD 03/03/201003/11 Inactive Alprazolam 0.5 mg Tab RxNorm: 736807 1 Tablet(s) PO BID PRN 010 No Stop Date Active triamterene-hydrochlorothiazide 75 mg-50 mg Tab RxNorm: 3108 18 1 Tablet(s) PO QD 02/09/2010 02/03/2011 Inactive Hydrocodone-Acetaminophen 10 mg-750 mg Tab RxNorm: 525528 1 Tablet(s) PO Q4H PRN 02/09/2010 03/20/2011 Inactive Clonidine 0.2 mg Tab RxNorm: 546834 1 Tablet(s) PO TID 01/13/201009/2009 Inactive Alprazolam 0.5 mg Tab RxNorm: 192689 1 Tablet(s) PO BID PRN 010 01/12/2010 Inactive Hydrocodone-Acetaminophen 10 mg-750 mg Tab RxNorm: 052095 1 Tablet(s) PO Q4H PRN 01/13/2010 01/12/2010 Inactive ANGELIQ 1 mg-0.5 mg Tab RxNorm: 5237759 1 Tablet(s) PO QD 12/27/2009 01/23/2010 Inactive Lasix 40 mg Tab RxNorm: 109192 1 Tablet(s) PO QAM 12/14/2009 06/11/20 10 Inactive Vitamin B12 1000mcg Tablet RxNorm: 1 Tablet(s) PO QD No Start Date Active cyclobenzaprine 10 mg tablet RxNorm: 045840 1 Tablet(s) PO TID as needed DO NOT USE WITH BACLOFEN No Start Date Active Vitamin D 5,000 unit Tab RxNorm: 1 Tablet(s) PO QD No Start Date Active vitamin E (dl, acetate) 400 unit Cap RxNorm: 009881 1 Capsule(s ) PO QD No Start Date Active Benadryl 25 mg Cap RxNorm: 3852562 Capsule(s) PO PRN No Start Date Inactive amitriptyline 100 mg tablet RxNorm: 814134 1 Tablet(s) PO QHS No St art Date 11/27/2016 Inactive Zithromax Z-Dustin 250 mg tablet RxNorm: 421775 Tablet(s) PO as di rected No Start Date 07/22/2013 Inactive Klor-Con 8 mEq tablet,extended release RxNorm: 221906 1 Tablet( s) PO BID No Start Date 07/28/2012 Inactive scopolamine 1.5 mg 72 hr Transderm Patch RxNorm: 697147 Application TD Q72H for motion sickness No Start Date 05/25/2013 Inactive Klonopin 1 mg tablet RxNorm: 479166 1-2 Tablet(s) PO QHS as nee ded for sleep No Start Date 06/20/2015 Inactive Klor-Con M20 mEq tablet,extended release RxNorm: 112786 2 Tablet(s) PO BID to use with lasix No Start Date 11/11/2013 Inactive Bystolic 5 mg tablet RxNorm: 063866 1 Tablet(s) PO QD No Start Date 1 Inactive Bystolic 10 mg tablet RxNorm: 461712 1 Tablet(s) PO BID No Start Da te 07/06/2015 Inactive Premarin 1.25 mg Tab RxNorm: 855610 Tablet(s) PO 2 --, and 1 [id number]-[id number] No Start Date 05/03/2010 Inactive baclofen 20 mg tablet RxNorm: 042318 1 Tablet(s) PO TID as needed for muscle spasm No Start Date 07/22/2015 Inactive hydrocodone-acetaminophen 7.5 mg-650 mg Tab RxNorm: 273049 1 Tablet(s) PO Q4H as needed for pain No Start Date 03/20/2011 Inactive albuterol sulfate 1.25 mg/3 mL Neb Solution RxNorm: 704510 1 Unit Dose INH Q4H 2boxes No Start Date 09/06/2015 Inactive Butrans 20 mcg/hour Transderm Patch RxNorm: 011137 1 TD WEEKLY apply to skin weekly after removing previous. No Start Date 07/22/2013 Inactive Medrol (Dustin) 4 mg tablets in a dose pack RxNorm: 882734 Tablet(s) PO As Directed No Start Date 07/30/2016 Inactive hydrocodone-acetaminophen 10 mg-325 mg Tab RxNorm: 2217302 1-2 Tablet(s) PO TID as needed for pain No Start Date 03/19/2011 Inactive Klonopin 1 mg tablet RxNorm: 031038 1 Tablet(s) PO QHS No Start Date 02/28/2016 Inactive honey topical RxNorm: topical No Start Date 06/16/2018 Inactive Clonidine 0.2 mg Tab RxNorm: 528878 1 Tablet(s) PO TID No Start Date 01/12/2010 Inactive ketorolac 10 mg tablet RxNorm: 665890 1 Tablet(s) PO Q8H No Start D ate 03/18/2012 Inactive as needed for headache Singulair 10 mg Tab RxNorm: 347119 1 Tablet(s) PO QD No Start Date Inactive Premarin 1.25 mg Tab RxNorm: 923080 1 Tablet(s) PO QD No Start Date 1 Inactive Flonase 50 mcg/Actuation Nasal [place] RxNorm: 6899225 1 [place] CECELIA AL BID No Start Date 03/18/2012 Inactive Terbinafine 250 mg Tab RxNorm: 228635 1 Tablet(s) PO QD No Start Da te 04/03/2010 Inactive Fexofenadine 180 mg Tab RxNorm: 2550104 1 Tablet(s) PO QD No Start Date 09/06/2015 Inactive baclofen 20 mg tablet RxNorm: 698066 1 Tablet(s) PO TID as needed N o Start Date 05/25/2014 Inactive Diovan 160 mg Tab RxNorm: 428131 1 Tablet(s) PO QD No Start Date 09/12 Inactive mupirocin 2 % topical ointment RxNorm: 916825 1 Application TOP QID No Start Date 04/25/2016 Inactive ZOFRAN ODT 4 mg Tab, Rapid Dissolve RxNorm: 483087 1 Tablet(s) PO Q4H No Start Date 03/18/2012 Inactive as needed for nausea and vomiting Alprazolam 0.5 mg Tab RxNorm: 109932 1 Tablet(s) PO BID PRN No Star t Date 01/12/2010 Inactive cyclobenzaprine 10 mg tablet RxNorm: 794935 1 Tablet(s) PO TID as needed for muscle spasm No Start Date 10/08/2017 Inactive Albuterol 0.083% Aerosol Solution RxNorm: 1 Appl ication INH Q4H Use one ampule every 4 hrs with nebulizer as needed for shortness of breath. No Start Date 10/09/2010 Inactive lorazepam 1 mg tablet RxNorm: 483496 1 1/2 Tablet(s) PO QHS No Star t Date 02/02/2016 Inactive Melatonin 3 mg Tab RxNorm: 293671 Tablet(s) PO PRN No Start Date 07/11 Inactive Medrol (Dustin) 4 mg Tabs in a Dose Pack RxNorm: 246245 Tablet(s) PO N o Start Date 11/28/2010 Inactive lorazepam 1 mg tablet RxNorm: 608226 1 Tablet(s) PO QHS as need ed for sleep No Start Date 01/30/2016 Inactive hydrocodone-acetaminophen 10 mg-325 mg Tab RxNorm: 8230090 1-2 Tablet(s) PO QID as needed for severe pain No Start Date 03/24/2012 Inactive celecoxib 200 mg capsule RxNorm: 113510 1 Capsule(s) PO BID No Star t Date 06/26/2019 Inactive amlodipine 5 mg-benazepril 20 mg capsule RxNorm: 808502 1 Capsu le(s) PO QD No Start Date 04/10/2017 Inactive Bystolic 20 mg tablet RxNorm: 046092 1/2 Tablet(s) PO QAM No Start Date 01/23/2016 Inactive Bystolic 20 mg tablet RxNorm: 553554 1 Tablet(s) PO QAM No Start Da te 04/25/2016 Inactive Ambien 10 mg Tab RxNorm: 595213 1 Tablet(s) PO QHS No Start Date 05/11 Inactive Klor-Con 8 mEq Tab RxNorm: 171231 1 Tablet(s) PO QD when takes lasix No Start Date 03/06/2010 Inactive aspirin 81 mg tablet RxNorm: 366556 1 Tablet(s) PO QD No Start Date 0 01/29/2018 Inactive hydrocodone-acetaminophen 10 mg-325 mg Tab RxNorm: 5224057 1-2 T ablet(s) PO QID No Start Date 01/10/2012 Inactive Bystolic 10 mg tablet RxNorm: 779633 1 Tablet(s) PO QAM take one daily in the morning. No Start Date 05/28/2013 Inactive nystatin 100,000 unit/mL Oral Susp RxNorm: 896090 5 Milliliter( s) PO QID No Start Date 03/18/2012 Inactive swish and spit scopolamine 1.5 mg 72 hr Transderm Patch RxNorm: 090074 1 Unit Dose TD Q72H for motion sickness No Start Date 12/23/2013 Inactive Hydrocodone-Acetaminophen 10 mg-750 mg Tab RxNorm: 734632 1 Tablet(s) PO Q4H PRN No Start Date 01/12/2010 Inactive Soma 350 mg tablet RxNorm: 958979 1 Tablet(s) PO TID as needed for spasm No Start Date 01/12/2013 Inactive baclofen 10 mg tablet RxNorm: 233585 1 Tablet(s) PO TID as needed for muscle spasm No Start Date 09/18/2019 Inactive Soma 350 mg Tab RxNorm: 934174 1 Tablet(s) PO TID for spasm No Star t Date 01/31/2012 Inactive Co Q-10 400 mg capsule RxNorm: 377251 1 Capsule(s) PO QD No Start D ate 01/21/2019 Inactive nystatin 100,000 unit/gram topical cream RxNorm: 520282 Applica tion TOP BID No Start Date 03/22/2015 Inactive Exforge 5 mg-160 mg Tab RxNorm: 147897 1 Tablet(s) PO QD No Start D ate 10/09/2010 Inactive Hydrocodone-Acetaminophen 7.5 mg-650 mg Tab RxNorm: 914768 1 Ta blet(s) PO Q4H No Start Date 03/07/2010 Inactive Robaxin-750 750 mg Tab RxNorm: 716006 1-2 Tablet(s) PO TID prn spasm No Start Date 05/21/2011 Inactive amlodipine 5 mg tablet RxNorm: 432140 1 Tablet(s) PO QHS No Start D ate 09/29/2015 Inactive oxycodone-acetaminophen 10 mg-325 mg tablet RxNorm: 5799587 1-2 Tablet(s) PO Q6H No Start Date 06/16/2018 Inactive Triamterene-Hydrochlorothiazide 75 mg-50 mg Tab RxNorm: 3108 18 1 Tablet(s) PO QD No Start Date 02/08/2010 Inactive Alprazolam 0.5 mg Tab RxNorm: 247741 2 Tablet(s) PO QD prn No Start Date 03/07/2010 Inactive Bystolic 20 mg tablet RxNorm: 912000 1 Tablet(s) PO QAM No Start Da te 08/17/2015 Inactive ketorolac 10 mg tablet RxNorm: 477991 1 Tablet(s) PO QID prn he adache No Start Date 07/17/2012 Inactive acyclovir 800 mg Tab RxNorm: 660735 1 Tablet(s) PO BID No Start Date 03/18/2012 Inactive duloxetine 60 mg capsule,delayed release RxNorm: 273892 1 Capsu le(s) PO QD No Start Date 09/29/2015 Inactive Norvasc 5 mg tablet RxNorm: 105749 1 Tablet(s) PO QHS No Start Date 1 10/18/2014 Inactive promethazine 25 mg tablet RxNorm: 061780 1 Tablet(s) PO Q8H use sparingly No Start Date 07/22/2013 Inactive alprazolam 0.5 mg tablet RxNorm: 001997 3 Tablet(s) PO QHS No Start Date 06/06/2015 Inactive Lunesta 3 mg tablet RxNorm: 557868 1 Tablet(s) PO QHS No Start Date 0 09/20/2017 Inactive hydrocodone-acetaminophen 10 mg-325 mg Tab RxNorm: 6014078 1-2 Tablet(s) PO TID as needed for pain No Start Date 12/10/2011 Inactive Coricidin HBP Cough & Cold 4 mg-30 mg Tab RxNorm: 5826937 Tablet (s) PO PRN No Start Date 10/09/2010 Inactive Bactroban 2 % Ointment RxNorm: 054115 Application TOP QID to so res No Start Date 02/22/2012 Inactive Flonase 50 mcg/actuation Nasal [place] RxNorm: 468689 2 [place] CEC[place] AL QHS No Start Date 03/03/2014 Inactive Medication Administered No Medication Administered data Immunizations Vaccine Codes Date Status Tetanus, Diptheria, Pertussis CVX: 115 02/27/2014 Results Observation Observation Code Item Item Code Result Date S ervice Location [facility] 09941 AST 15 U/L 2019 Unknown [facility] 49892 ALT 13 U/L 2019 Unknown [facility] 65246 BUN 12 mg/dL 2019 Unknown [facility] 03249 ALBUMIN 3.9 g/dL 2019 Unknown [facility] 87874 CHLORIDE 97 mmol/L 2019 Unknown [facility] MET[facility] 14851 Bili Total 0.4 mg/dL 09/29 Unknown COMPREHENSIVE METABOLIC 71986 ALK PHOS 130 U/L 2019 Unknown [facility] 09303 SODIUM 136 mmol/L 09/29 Unknown [facility] 17579 CREATININE 0.92 mg/dL 09/11 Unknown [facility] 83137 CALCIUM 9.1 mg/dL 2019 Unknown [facility] 32241 POTASSIUM 4.4 mmol/L 09/29 Unknown COMPREHENS[facility] METABOL[facility] 52006 Total Protein 6.2 g/dL Unknown [facility] 81050 Glucose 391 mg/dL 2019 Unknown COMPREH[facility] MET[facility]OL[facility] 68931 Bicarbonate 30 mmol/L 09/11 Unknown COMPREHENSIVE METABOLIC 08366 AGAP 9 mmol/L 2019 Unknown MEAN GLUC 7194390 Calc Mean Gluc 332 mg/dL 09/29/2019 Unkn own COMPLETE BLOOD COUNT [id number] WBC 7.0 10e9/L 09/29/19 Unknown COMPLETE BLOOD COUNT 8790021 RBC 4.69 10e12/L 2019 Unknown COMPLETE BLOOD COUNT 1489674 HEMOGLOBIN 14.6 g/dL 09/29/19 Unknown COMPLETE BLOOD COUNT [id number] HEMATOCRIT 45.2 % 09/29/19 Unknown COMPLETE BLOOD COUNT [id number] MCV 96.4 fL 0 Unknown COMPLETE BLOOD COUNT [id number] MCH 31.1 pg 0 Unknown COMPLETE BLOOD COUNT 2271706 MCHC 32.3 g/dL 0 Unknown COMPLETE BLOOD COUNT [id number] PLATELET COUNT 209 10e9/L Unknown COMPLETE BLOOD COUNT 4150016 Mean Plt Volume 9.8 fL Unknown COMPLETE BLOOD COUNT 9965524 Neut Auto 48.1 % 0 Unknown COMPLETE BLOOD COUNT 0387873 Lymph Auto 36.5 % 09/29/19 Unknown COMPLETE BLOOD COUNT 7166674 Hinds Auto 8.6 % 0 Unknown COMPLETE BLOOD COUNT 8782113 RDW 13.4 % 0 Unknown COMPLETE BLOOD COUNT 4621213 Eos Auto 6.5 % 0 Unknown COMPLETE BLOOD COUNT 0773555 Baso Auto 0.3 % 0 Unknown COMPLETE BLOOD COUNT [id number] Neutrophil Abs 3.37 10e9/L Unknown COMPLETE BLOOD COUNT [id number] Lymphocyte Abs 2.56 10e9/L Unknown COMPLETE BLOOD COUNT [id number] Monocyte Abs 0.60 10e9/L 09/11 Unknown COMPLETE BLOOD COUNT [id number] Eosinophil Abs 0.46 10e9/L Unknown COMPLETE BLOOD COUNT [id number] RDW-SD 45.9 fL 0 Unknown COMPLETE BLOOD COUNT [id number] Basophil Abs 0.02 10e9/L 09/11 Unknown [facility] 16672 Cholesterol 248 mg/dL 09/29/2019 Unkno wn L[facility] 98492 Triglyceride 898 mg/dL 09/29/2019 Unkn own [facility] 88853 HDL CHOLESTEROL 41 mg/dL 09/29/2019 U nknown [facility] 91646 Chol/HDL Ratio 6.05 ratio 09/29/2019 U nknown [facility] 87550 NON-HDL Chol 207 mg/dL 09/29/2019 Unkn own [facility] 76479 LDL Cholesterol N/A Trig >400 020 Unknown GLYCOSYLATED HEMOGLOBIN TEST 42472 Hgb A1c 95188-2 13.2 % 0 09/29/2019 Unknown FREE T4 69939 T4 Free 0.75 ng/dL 09/29/2019 Unknown GFR CALC 3036716 GFR Non Afr Amr >60 mL/min 09/29/2019 Un known GFR CALC 9888484 GFR Afr Amr >60 mL/min 09/29/2019 Unknow n THYROID STIMULATING HORMONE 01370 TSH 4.245 uIU/mL 09/29/2019 Unknown COMPLETE BLOOD COUNT 1502028 WBC 10.7 10e9/L 018 Unknown COMPLETE BLOOD COUNT 6874194 RBC 4.59 10e12/L 2017 Unknown COMPLETE BLOOD COUNT 3957458 HEMOGLOBIN 14.8 g/dL 12/11/19 18 Unknown COMPLETE BLOOD COUNT 4571788 HEMATOCRIT 44.9 % 12/11/19 18 Unknown COMPLETE BLOOD COUNT 6944843 MCV 97.8 fL 8 Unknown COMPLETE BLOOD COUNT 5110596 MCH 32.2 pg 8 Unknown COMPLETE BLOOD COUNT 3805117 MCHC 33.0 g/dL 8 Unknown COMPLETE BLOOD COUNT 0757034 PLATELET COUNT 261 10e9/L 10/2017 Unknown COMPLETE BLOOD COUNT 9506115 Mean Plt Volume 9.5 fL 10/2017 Unknown COMPLETE BLOOD COUNT 9253795 Neut Auto 59.9 % 8 Unknown COMPLETE BLOOD COUNT [id number] Lymph Auto 27.4 % 12/11/19 18 Unknown COMPLETE BLOOD COUNT 0233888 Hinds Auto 8.2 % 8 Unknown COMPLETE BLOOD COUNT 7462108 RDW 13.3 % 8 Unknown COMPLETE BLOOD COUNT 0054696 Eos Auto 4.1 % 8 Unknown COMPLETE BLOOD COUNT 6475223 Baso Auto 0.4 % 8 Unknown COMPLETE BLOOD COUNT [id number] Neutrophil Abs 6.41 10e9/L Unknown COMPLETE BLOOD COUNT 7653776 Lymphocyte Abs 2.93 10e9/L Unknown COMPLETE BLOOD COUNT 7598349 Monocyte Abs 0.88 10e9/L 10/2017 Unknown COMPLETE BLOOD COUNT [id number] Eosinophil Abs 0.44 10e9/L Unknown COMPLETE BLOOD COUNT 9645471 RDW-SD 46.2 fL 8 Unknown COMPLETE BLOOD COUNT [id number] Basophil Abs 0.04 10e9/L 10/2017 Unknown THYROID STIMULATING HORMONE 98534 TSH 4.015 uIU/mL 12/10/2017 Unknown COMPREHENSIVE METABOLIC 94726 AST 25 U/L 2017 Unknown COMPREHENSIVE METABOLIC 58899 ALT 17 U/L 2017 Unknown COMPREHENSIVE METABOLIC 21273 BUN 19 mg/dL 2017 Unknown COMPREHENSIVE METABOLIC 97246 ALBUMIN 4.0 g/dL 2017 Unknown COMPREHENSIVE METABOLIC 13378 CHLORIDE 91 mmol/L 2017 Unknown COMPREHENSIVE METABOLIC 13954 Bili Total 0.5 mg/dL 12/10 Unknown COMPREHENSIVE METABOLIC 45092 ALK PHOS 75 U/L 2017 Unknown COMPREHENSIVE METABOLIC 87435 SODIUM 136 mmol/L 12/10 Unknown COMPREHENSIVE METABOLIC 45946 CREATININE 1.05 mg/dL 10/2017 Unknown COMPREHENSIVE METABOLIC 62147 CALCIUM 8.9 mg/dL 2017 Unknown COMPREHENSIVE METABOLIC 97413 POTASSIUM 3.4 mmol/L 12/10 Unknown COMPREHENSIVE METABOLIC 71551 Total Protein 6.5 g/dL Unknown COMPREHENSIVE METABOLIC 06802 Glucose 138 mg/dL 2017 Unknown COMPREHENSIVE METABOLIC 87422 Bicarbonate 35 mmol/L 10/2017 Unknown COMPREHENSIVE METABOLIC 95376 AGAP 10 mmol/L 2017 Unknown MEAN GLUC 9684783 Calc Mean Gluc 171 mg/dL 12/10/2017 Unkn own LIP[facility] GROUP 59300 Cholesterol 204 mg/dL 12/10/2017 Unkno wn L[facility] 44309 Triglyceride 411 mg/dL 12/10/2017 Unkn own [facility] 32132 HDL CHOLESTEROL 50 mg/dL 12/10/2017 U nknown [facility] 64843 Chol/HDL Ratio 4.08 ratio 12/10/2017 U nknown [facility] 04316 NON-HDL Chol 154 mg/dL 12/10/2017 Unkn own [facility] 23287 LDL Cholesterol N/A Trig >400 018 Unknown GLYCOSYLATED HEMOGLOBIN TEST 91051 Hgb A1c 05918-2 7.6 % 0 12/10/2017 Unknown FREE T4 72963 T4 Free 1.40 ng/dL 12/10/2017 Unknown GFR CALC 3161012 GFR Non Afr Amr 55 mL/min 12/10/2017 Unk nown GFR CALC 7861834 GFR Afr Amr >60 mL/min 12/10/2017 Unknow n GFR CALC 6749916 GFR Non Afr Amr 48 mL/min 06/28/2017 Unk nown GFR CALC 2453338 GFR Afr Amr 59 mL/min 06/28/2017 Unknown COMPREHENSIVE METABOLIC 03818 AST 32 U/L 2016 Unknown COMPREHENSIVE METABOLIC 23143 ALT 22 U/L 2016 Unknown COMPREHENSIVE METABOLIC 11036 BUN 23 mg/dL 2016 Unknown COMPREHENSIVE METABOLIC 26153 ALBUMIN 4.7 g/dL 2016 Unknown COMPREHENSIVE METABOLIC 87678 CHLORIDE 89 mmol/L 2016 Unknown COMPREHENSIVE METABOLIC 39126 Bili Total 0.5 mg/dL 06/28 Unknown COMPREHENSIVE METABOLIC 13255 ALK PHOS 90 U/L 2016 Unknown COMPREHENSIVE METABOLIC 04241 SODIUM 135 mmol/L 06/28 Unknown COMPREHENSIVE METABOLIC 87704 CREATININE 1.18 mg/dL 06/10 Unknown COMPREHENSIVE METABOLIC 63754 CALCIUM 9.7 mg/dL 2016 Unknown COMPREHENSIVE METABOLIC 78782 POTASSIUM 3.5 mmol/L 06/28 Unknown COMPREHENSIVE METABOLIC 97454 Total Protein 7.7 g/dL Unknown COMPRE[facility] METABOLIC 24278 Glucose 129 mg/dL 2016 Unknown COMPREHENSIVE METABOLIC 76130 Bicarbonate 34 mmol/L 06/10 Unknown COMPREHENSIVE METABOLIC 02841 AGAP 12 mmol/L 2016 Unknown [facility] 52228 HDL TEST 64 MG/DL 08/27/2014 Unknown [facility] 42504 TRIG 222 MG/DL 08/27/2014 Unknown [facility] 10411 TEST LDL 209 MG/DL 08/27/2014 Unknown [facility] 72910 CHOL 317 MG/DL 08/27/2014 Unknown [facility] 46484 RCHOL/HDL 4.95 RATIO 08/27/2014 Unknow n L[facility] 15792 NON-HDL CH 253 MG/DL 08/27/2014 Unknow n GFR CALC 4182402 GFR AA >60 ML/MIN 08/27/2014 Unknown GFR CALC 0921129 GFR NON-AA >60 ML/MIN 08/27/2014 Unknown COMPLETE BLOOD COUNT 9305334 WBC 7.0 10e9/L 08/27/20 14 Unknown COMPLETE BLOOD COUNT 9231396 RBC 4.98 10e12/L 2013 Unknown COMPLETE BLOOD COUNT 7907789 HGB 15.6 g/dL 4 Unknown COMPLETE BLOOD COUNT 3661006 HCT DET 46.5 % 4 Unknown COMPLETE BLOOD COUNT 1681983 MCV 93.4 fL 4 Unknown COMPLETE BLOOD COUNT 9794249 MCH 31.3 pg 4 Unknown COMPLETE BLOOD COUNT 7898738 MCHC 33.5 g/dL 4 Unknown COMPLETE BLOOD COUNT 9492679 PLT 309 10e9/L 08/27/20 14 Unknown COMPLETE BLOOD COUNT 1645662 MPV 9.6 fL 4 Unknown COMPLETE BLOOD COUNT 2204642 CADEN % 57.2 % 4 Unknown COMPLETE BLOOD COUNT 6806649 LY % 33.2 % 4 Unknown COMPLETE BLOOD COUNT 1109188 MON % 7.3 % 4 Unknown COMPLETE BLOOD COUNT 8592073 EOS % 2.0 % 4 Unknown COMPLETE BLOOD COUNT 1399360 BASO % 0.3 % 4 Unknown COMPLETE BLOOD COUNT 4972601 RDW 13.7 % 4 Unknown COMPLETE BLOOD COUNT 6814912 ABS CADEN 4.00 10e9/L 014 Unknown COMPLETE BLOOD COUNT 4881793 ABS LYMPH 2.32 10e9/L 014 Unknown COMPLETE BLOOD COUNT [id number] ABS MONO 0.51 10e9/L 014 Unknown COMPLETE BLOOD COUNT 3438367 ABS EOS 0.14 10e9/L 014 Unknown COMPLETE BLOOD COUNT [id number] ABS BASO 0.02 10e9/L 014 Unknown COMPLETE BLOOD COUNT 6887768 RDW-SD 45.1 fL 4 Unknown COMPREHENSIVE METABOLIC 56836 AST 13 U/L 2013 Unknown COMPREHENSIVE METABOLIC 40220 ALT 11 IU/L 2013 Unknown COMPREHENSIVE METABOLIC 72603 BUN 23 MG/DL 2013 Unknown COMPREHENSIVE METABOLIC 95754 ALBUMIN 4.4 GM/DL 2013 Unknown COMPREHENSIVE METABOLIC 28570 CHLORIDE 99 MMOL/L 2013 Unknown COMPREHENSIVE METABOLIC 38161 BILI TOT 0.5 MG/DL 2013 Unknown COMPREHENSIVE METABOLIC 30252 ALK PHOS 56 U/L 2013 Unknown COMPREHENSIVE METABOLIC 23824 SODIUM 138 MMOL/L 08/27 Unknown COMPREHENSIVE METABOLIC 34625 CREATININE 0.95 MG/DL 08/10 Unknown COMPREHENSIVE METABOLIC 73482 CALCIUM 9.8 MG/DL 2013 Unknown COMPREHENSIVE METABOLIC 45395 POTASSIUM 3.5 MMOL/L 08/27 Unknown COMPREHENSIVE METABOLIC 46601 PROT TOT 6.8 GM/DL 2013 Unknown COMPREHENSIVE METABOLIC 92681 Glucose 90 MG/DL 2013 Unknown COMPREHENSIVE METABOLIC 80468 BICARB 34 MMOL/L 2013 Unknown COMPREHENSIVE METABOLIC 97389 ANION GAP 5 MEQ/L 2013 Unknown LIPASE 35912 LIPASE 11 IU/L 07/21/2014 Unknown AMYLASE 90267 AMYLASE 39 IU/L 07/21/2014 Unknown HEMOGLOBIN A1C (GLYCOSYLATED) 7477101 A1C [facility] 31757-5 6.2 % 03/05/2013 Unknown THYROID STIMULATING HORMONE 93720 TSH 6.986 uIU/ML 03/05/2013 Unknown COMPLETE BLOOD COUNT 4605302 WBC 12.7 10e9/L 013 Unknown COMPLETE BLOOD COUNT 2073953 RBC 4.53 10e12/L 2012 Unknown COMPLETE BLOOD COUNT 8999664 HGB 14.7 g/dL 3 Unknown COMPLETE BLOOD COUNT 9378421 HCT DET 43.1 % 3 Unknown COMPLETE BLOOD COUNT 2325517 MCV 95.1 fL 3 Unknown COMPLETE BLOOD COUNT 5053898 MCH 32.5 pg 3 Unknown COMPLETE BLOOD COUNT 2540047 MCHC 34.1 g/dL 3 Unknown COMPLETE BLOOD COUNT 7121115 PLT 346 10e9/L 03/05/20 13 Unknown COMPLETE BLOOD COUNT 8828998 MPV 9.5 fL 3 Unknown COMPLETE BLOOD COUNT 1170716 CADEN % 67.6 % 3 Unknown COMPLETE BLOOD COUNT 2755470 LY % 22.1 % 3 Unknown COMPLETE BLOOD COUNT 5490907 MON % 6.6 % 3 Unknown COMPLETE BLOOD COUNT 5426677 EOS % 3.3 % 3 Unknown COMPLETE BLOOD COUNT 9038284 BASO % 0.4 % 3 Unknown COMPLETE BLOOD COUNT 1821459 RDW 14.0 % 3 Unknown COMPLETE BLOOD COUNT [id number] ABS CADEN 8.59 10e9/L 013 Unknown COMPLETE BLOOD COUNT [id number] ABS LYMPH 2.81 10e9/L 013 Unknown COMPLETE BLOOD COUNT 6111893 ABS MONO 0.84 10e9/L 013 Unknown COMPLETE BLOOD COUNT [id number] ABS EOS 0.42 10e9/L 013 Unknown COMPLETE BLOOD COUNT 4269609 ABS BASO 0.05 10e9/L 013 Unknown COMPLETE BLOOD COUNT [id number] RDW-SD 46.0 fL 3 Unknown FREE T4 87256 FREE T4 1.14 NG/DL 03/05/2013 Unknown COMPREHENSIVE METABOLIC 04092 AST 17 U/L 2012 Unknown COMPREHENSIVE METABOLIC 60955 ALT 12 IU/L 2012 Unknown COMPREHENSIVE METABOLIC 22082 BUN 24 MG/DL 2012 Unknown COMPREHENSIVE METABOLIC 77325 ALBUMIN 4.2 GM/DL 2012 Unknown COMPREHENSIVE METABOLIC 98475 CHLORIDE 93 MMOL/L 2012 Unknown COMPREHENSIVE METABOLIC 08793 BILI TOT 0.5 MG/DL 2012 Unknown COMPREHENSIVE METABOLIC 29788 ALK PHOS 75 U/L 2012 Unknown COMPREHENSIVE METABOLIC 42568 SODIUM 141 MMOL/L 03/05 Unknown COMPREHENSIVE METABOLIC 17517 CREATININE 1.36 MG/DL 02/09 Unknown COMPREHENSIVE METABOLIC 28304 CALCIUM 9.2 MG/DL 2012 Unknown COMPREHENSIVE METABOLIC 18047 POTASSIUM 3.1 MMOL/L 03/05 Unknown COMPREHENSIVE METABOLIC 26287 PROT TOT 6.9 GM/DL 2012 Unknown COMPREHENSIVE METABOLIC 45955 Glucose 123 MG/DL 2012 Unknown COMPREHENSIVE METABOLIC 94550 BICARB 36 MMOL/L 2012 Unknown COMPREHENSIVE METABOLIC 72288 ANION GAP 12 MEQ/L 2012 Unknown GFR CALC 7487273 GFR AA 51.0L ML/MIN 03/05/2013 Unknow n GFR CALC 3718434 GFR NON-AA 42.0L ML/MIN 03/05/2013 Unkno wn COMPREHENSIVE METABOLIC 61070 AST 14 U/L 2012 Unknown COMPREHENSIVE METABOLIC 14409 ALT 11 IU/L 2012 Unknown COMPREHENSIVE METABOLIC 06616 BUN 16 MG/DL 2012 Unknown COMPREHENSIVE METABOLIC 02116 ALBUMIN 4.2 GM/DL 2012 Unknown COMPREHENSIVE METABOLIC 08145 CHLORIDE 98 MMOL/L 2012 Unknown COMPREHENSIVE METABOLIC 63413 BILI TOT 0.4 MG/DL 2012 Unknown COMPREHENSIVE METABOLIC 72977 ALK PHOS 77 U/L 2012 Unknown COMPREHENSIVE METABOLIC 06599 SODIUM 139 MMOL/L 09/25 Unknown COMPREHENSIVE METABOLIC 17498 CREATININE 0.86 MG/DL 09/10 Unknown COMPREHENSIVE METABOLIC 80732 CALCIUM 9.5 MG/DL 2012 Unknown COMPREHENSIVE METABOLIC 23941 POTASSIUM 3.8 MMOL/L 09/25 Unknown COMPREHENSIVE METABOLIC 63390 PROT TOT 6.8 GM/DL 2012 Unknown COMPREHENSIVE METABOLIC 71164 Glucose 91 MG/DL 2012 Unknown COMPREHENSIVE METABOLIC 07513 BICARB 32 MMOL/L 2012 Unknown COMPREHENSIVE METABOLIC 40409 ANION GAP 9 MEQ/L 2012 Unknown FREE T4 74168 FREE T4 0.98 NG/DL 09/25/2012 Unknown THYROID STIMULATING HORMONE 88601 TSH 1.736 uIU/ML 09/25/2012 Unknown C-REACTIVE PROTEIN (CRP) QUANT 60949 CRP 2.3 MG/DL 09/25/2012 Unknown COMPLETE BLOOD COUNT [id number] WBC 11.9 10e9/L 013 Unknown COMPLETE BLOOD COUNT [id number] RBC 4.87 10e12/L 2012 Unknown COMPLETE BLOOD COUNT 9670532 HGB 15.1 g/dL 3 Unknown COMPLETE BLOOD COUNT 5318428 HCT DET 44.8 % 3 Unknown COMPLETE BLOOD COUNT 7748895 MCV 92.0 fL 3 Unknown COMPLETE BLOOD COUNT 1443937 MCH 31.0 pg 3 Unknown COMPLETE BLOOD COUNT 0065932 MCHC 33.7 g/dL 3 Unknown COMPLETE BLOOD COUNT 4049962 PLT 343 10e9/L 09/25/19 13 Unknown COMPLETE BLOOD COUNT 3357440 MPV 9.0 fL 3 Unknown COMPLETE BLOOD COUNT 3449091 CADEN % 68.2 % 3 Unknown COMPLETE BLOOD COUNT 5130453 LY % 22.4 % 3 Unknown COMPLETE BLOOD COUNT 1749172 MON % 6.4 % 3 Unknown COMPLETE BLOOD COUNT 8715298 EOS % 2.7 % 3 Unknown COMPLETE BLOOD COUNT 5481756 BASO % 0.3 % 3 Unknown COMPLETE BLOOD COUNT 7358303 RDW 13.8 % 3 Unknown COMPLETE BLOOD COUNT 9626469 ABS CADEN 8.12 10e9/L 013 Unknown COMPLETE BLOOD COUNT [id number] ABS LYMPH 2.67 10e9/L 013 Unknown COMPLETE BLOOD COUNT 5512935 ABS MONO 0.76 10e9/L 013 Unknown COMPLETE BLOOD COUNT [id number] ABS EOS 0.32 10e9/L 013 Unknown COMPLETE BLOOD COUNT [id number] ABS BASO 0.04 10e9/L 013 Unknown COMPLETE BLOOD COUNT 1963423 RDW-SD 45.6 fL 3 Unknown GFR CALC 4964790 GFR AA >60 ML/MIN 09/25/2012 Unknown GFR CALC 0896518 GFR NON-AA >60 ML/MIN 09/25/2012 Unknown ERYTHROCYTE SEDIMENTATION RATE 70126 ESR 19 MM/HR 05/06/2012 Unknown VITAMIN B 12 FOLIC ACID 12159|54726 VIT B 12 922 PG/ML 04/11 Unknown VITAMIN B 12 FOLIC ACID 65969|55608 FOLIC ACID 13.6 NG/ML Unknown URIC ACID 10480 URIC ACID 7.8 MG/DL 05/06/2012 Unknown COMPLETE BLOOD COUNT 82163 WBC 11.9 10e9/L 012 Unknown COMPLETE BLOOD COUNT 59839 RBC 5.30 10e12/L 2011 Unknown COMPLETE BLOOD COUNT 52148 HGB 16.6 g/dL 2 Unknown COMPLETE BLOOD COUNT 74210 HCT DET 47.2 % 2 Unknown COMPLETE BLOOD COUNT 47176 MCV 89.1 fL 2 Unknown COMPLETE BLOOD COUNT 90632 MCH 31.3 pg 2 Unknown COMPLETE BLOOD COUNT 96305 MCHC 35.2 g/dL 2 Unknown COMPLETE BLOOD COUNT 98630 PLT 362 10e9/L 05/06/20 12 Unknown COMPLETE BLOOD COUNT 27272 MPV 9.4 fL 2 Unknown COMPLETE BLOOD COUNT 08406 CADEN % 68.2 % 2 Unknown COMPLETE BLOOD COUNT 51163 LY % 22.0 % 2 Unknown COMPLETE BLOOD COUNT 09318 MON % 6.9 % 2 Unknown COMPLETE BLOOD COUNT 65816 EOS % 2.6 % 2 Unknown COMPLETE BLOOD COUNT 97256 BASO % 0.3 % 2 Unknown COMPLETE BLOOD COUNT 32339 RDW 12.8 % 2 Unknown COMPLETE BLOOD COUNT 27049 ABS CADEN 8.12 10e9/L 012 Unknown COMPLETE BLOOD COUNT 73435 ABS LYMPH 2.62 10e9/L 012 Unknown COMPLETE BLOOD COUNT 10005 ABS MONO 0.82 10e9/L 012 Unknown COMPLETE BLOOD COUNT 23439 ABS EOS 0.31 10e9/L 012 Unknown COMPLETE BLOOD COUNT 56447 ABS BASO 0.04 10e9/L 012 Unknown COMPLETE BLOOD COUNT 33112 RDW-SD 41.5 fL 2 Unknown GFR CALC 5429079 GFR AA >60 ML/MIN 05/06/2012 Unknown GFR CALC 8781594 GFR NON-AA 58.0L ML/MIN 05/06/2012 Unkno wn FREE T4 38077 FREE T4 1.15 NG/DL 05/06/2012 Unknown THYROID STIMULATING HORMONE 87201 TSH 1.568 uIU/ML 05/06/2012 Unknown COMPREHENSIVE METABOLIC 41597 AST 20 U/L 2011 Unknown COMPREHENSIVE METABOLIC 47481 ALT 12 IU/L 2011 Unknown COMPREHENSIVE METABOLIC 48266 BUN 20 MG/DL 2011 Unknown COMPREHENSIVE METABOLIC 91580 ALBUMIN 4.5 GM/DL 2011 Unknown COMPREHENSIVE METABOLIC 31602 CHLORIDE 91 MMOL/L 2011 Unknown COMPREHENSIVE METABOLIC 30432 BILI TOT 0.4 MG/DL 2011 Unknown COMPREHENSIVE METABOLIC 80785 ALK PHOS 73 U/L 2011 Unknown COMPREHENSIVE METABOLIC 61137 SODIUM 139 MMOL/L 05/06 Unknown COMPREHENSIVE METABOLIC 72546 CREATININE 1.02 MG/DL 04/11 Unknown COMPREHENSIVE METABOLIC 33862 CALCIUM 9.7 MG/DL 2011 Unknown COMPREHENSIVE METABOLIC 91083 POTASSIUM 3.1 MMOL/L 05/06 Unknown COMPREHENSIVE METABOLIC 85872 PROT TOT 7.3 GM/DL 2011 Unknown COMPREHENSIVE METABOLIC 65368 Glucose 118 MG/DL 2011 Unknown COMPREHENSIVE METABOLIC 53803 BICARB 33 MMOL/L 2011 Unknown COMPREHENSIVE METABOLIC 47422 ANION GAP 15 MEQ/L 2011 Unknown Procedures Procedure Codes Date ROUTINE VENIPUNCTURE CPT-4: 95735 09/29/2019 URINALYSIS NONAUTO W/O SCOPE CPT-4: 70860 09/29/2019 COMPREHEN METABOLIC PANEL CPT-4: 30957 09/29/2019 LIPID PANEL CPT-4: 94189 09/29/2019 A1C HPLC CPT-4: 33307 09/29/2019 ASSAY OF FREE THYROXINE CPT-4: 24182 09/29/2019 ASSAY THYROID STIM HORMONE CPT-4: 65507 09/29/2019 COMPLETE CBC W/AUTO DIFF WBC CPT-4: 22221 09/29/2019 URINALYSIS NONAUTO W/O SCOPE CPT-4: 09666 09/30/2018 MICROALBUMIN QUANTITATIVE CPT-4: 10697 09/30/2018 CEFTRIAXONE SODIUM INJECTION CPT-4: J0696 06/19/2018 THER/PROPH/DIAG INJ SC/IM CPT-4: 02992 06/19/2018 CEFTRIAXONE SODIUM INJECTION CPT-4: J0696 06/17/2018 THER/PROPH/DIAG INJ SC/IM CPT-4: 04698 06/17/2018 THER/PROPH/DIAG INJ SC/IM CPT-4: 35292 05/16/2018 KETOROLAC TROMETHAMINE INJ CPT-4: J1885 05/16/2018 ONDANSETRON HCL INJECTION CPT-4: J2405 05/16/2018 THER/PROPH/DIAG INJ SC/IM CPT-4: 91865 05/16/2018 ROUTINE VENIPUNCTURE CPT-4: 68756 03/20/2018 COMPREHEN METABOLIC PANEL CPT-4: 88833 03/20/2018 DEXAMETHASONE SODIUM PHOS CPT-4: J1100 02/11/2018 THER/PROPH/DIAG INJ SC/IM CPT-4: 66018 02/11/2018 TRIAMCINOLONE ACET INJ NOS CPT-4: J3301 02/11/2018 CEFTRIAXONE SODIUM INJECTION CPT-4: J0696 02/01/2018 THER/PROPH/DIAG INJ SC/IM CPT-4: 11216 02/01/2018 CEFTRIAXONE SODIUM INJECTION CPT-4: J0696 01/30/2018 THER/PROPH/DIAG INJ SC/IM CPT-4: 06168 01/30/2018 ROUTINE VENIPUNCTURE CPT-4: 54897 12/10/2017 ASSAY OF FREE THYROXINE CPT-4: 48577 12/10/2017 ASSAY THYROID STIM HORMONE CPT-4: 87355 12/10/2017 COMPREHEN METABOLIC PANEL CPT-4: 83881 12/10/2017 COMPLETE CBC W/AUTO DIFF WBC CPT-4: 06824 12/10/2017 LIPID PANEL CPT-4: 77746 12/10/2017 A1C HPLC CPT-4: 88795 12/10/2017 CEFTRIAXONE SODIUM INJECTION CPT-4: J0696 12/10/2017 THER/PROPH/DIAG INJ SC/IM CPT-4: 54054 12/10/2017 CEFTRIAXONE SODIUM INJECTION CPT-4: J0696 12/07/2017 THER/PROPH/DIAG INJ SC/IM CPT-4: 71702 12/07/2017 DEXAMETHASONE SODIUM PHOS CPT-4: J1100 12/07/2017 THER/PROPH/DIAG INJ SC/IM CPT-4: 94520 12/07/2017 CEFTRIAXONE SODIUM INJECTION CPT-4: J0696 10/08/2017 THER/PROPH/DIAG INJ SC/IM CPT-4: 61332 10/08/2017 CEFTRIAXONE SODIUM INJECTION CPT-4: J0696 09/21/2017 THER/PROPH/DIAG INJ SC/IM CPT-4: 16789 09/21/2017 CEFTRIAXONE SODIUM INJECTION CPT-4: J0696 09/20/2017 THER/PROPH/DIAG INJ SC/IM CPT-4: 28958 09/20/2017 REMOVAL OF NAIL PLATE CPT-4: 98775 08/29/2017 THER/PROPH/DIAG INJ SC/IM CPT-4: 93390 08/29/2017 TRIAMCINOLONE ACET INJ NOS CPT-4: J3301 08/29/2017 CEFTRIAXONE SODIUM INJECTION CPT-4: J0696 08/29/2017 THER/PROPH/DIAG INJ SC/IM CPT-4: 25458 08/29/2017 DESTRUCT PREMALG LESION (Cryosurgery) CPT-4: 65537 ROUTINE VENIPUNCTURE CPT-4: 43868 06/27/2017 ASSAY OF FREE THYROXINE CPT-4: 44635 06/27/2017 ASSAY THYROID STIM HORMONE CPT-4: 47266 06/27/2017 COMPREHEN METABOLIC PANEL CPT-4: 36033 06/27/2017 COMPLETE CBC W/AUTO DIFF WBC CPT-4: 54450 06/27/2017 EXC TR-EXT B9+REECE 0.5 CM< CPT-4: 36555 01/24/2017 THER/PROPH/DIAG INJ SC/IM CPT-4: 99785 08/02/2016 DEXAMETHASONE SODIUM PHOS CPT-4: J1100 08/02/2016 DESTRUCT PREMALG LESION (Cryosurgery) CPT-4: 96690 EXC TR-EXT B9+REECE 0.5 CM< CPT-4: 93972 08/01/2016 AEROBIC WOUND CULTURE & STN CPT-4: 19827 07/06/2016 CEFTRIAXONE SODIUM INJECTION CPT-4: J0696 05/25/2016 THER/PROPH/DIAG INJ SC/IM CPT-4: 24651 05/25/2016 THER/PROPH/DIAG INJ SC/IM CPT-4: 18730 04/26/2016 DEXAMETHASONE SODIUM PHOS CPT-4: J1100 04/26/2016 CEFTRIAXONE SODIUM INJECTION CPT-4: J0696 04/26/2016 THER/PROPH/DIAG INJ SC/IM CPT-4: 35110 04/26/2016 THER/PROPH/DIAG INJ SC/IM CPT-4: 68886 02/09/2016 TRIAMCINOLONE ACET INJ NOS CPT-4: J3301 02/09/2016 URINALYSIS NONAUTO W/O SCOPE CPT-4: 71728 01/24/2016 URINE CULTURE/ COLONY COUNT CPT-4: 71176 01/24/2016 THER/PROPH/DIAG INJ SC/IM CPT-4: 11713 12/08/2015 TRIAMCINOLONE ACET INJ NOS CPT-4: J3301 12/08/2015 THER/PROPH/DIAG INJ SC/IM CPT-4: 15479 10/07/2015 TRIAMCINOLONE ACET INJ NOS CPT-4: J3301 10/07/2015 DESTRUCT PREMALG LESION (Cryosurgery) CPT-4: 53458 THER/PROPH/DIAG INJ SC/IM CPT-4: 12208 03/16/2015 METHYLPREDNISOLONE 40 MG INJ CPT-4: J1030 03/16/2015 DESTRUCT PREMALG LESION (Cryosurgery) CPT-4: 63057 THER/PROPH/DIAG INJ SC/IM CPT-4: 37698 09/11/2014 METHYLPREDNISOLONE 40 MG INJ CPT-4: J1030 09/11/2014 TRIAMCINOLONE ACET INJ NOS CPT-4: J3301 09/11/2014 CEFTRIAXONE SODIUM INJECTION CPT-4: J0696 09/11/2014 THER/PROPH/DIAG INJ SC/IM CPT-4: 30363 09/11/2014 ROUTINE VENIPUNCTURE CPT-4: 67217 08/27/2014 COMPREHEN METABOLIC PANEL CPT-4: 10849 08/27/2014 COMPLETE CBC W/AUTO DIFF WBC CPT-4: 23681 08/27/2014 LIPID PANEL CPT-4: 60733 08/27/2014 ROUTINE VENIPUNCTURE CPT-4: 48687 07/21/2014 ASSAY OF AMYLASE CPT-4: 25402 07/21/2014 ASSAY OF LIPASE CPT-4: 21224 07/21/2014 THER/PROPH/DIAG INJ SC/IM CPT-4: 96822 07/15/2014 TRIAMCINOLONE ACET INJ NOS CPT-4: J3301 07/15/2014 ROUTINE VENIPUNCTURE CPT-4: 56347 05/14/2014 ASSAY OF FREE THYROXINE CPT-4: 33101 05/14/2014 ASSAY THYROID STIM HORMONE CPT-4: 13205 05/14/2014 COMPREHEN METABOLIC PANEL CPT-4: 30796 05/14/2014 COMPLETE CBC W/AUTO DIFF WBC CPT-4: 67231 05/14/2014 LIPID PANEL CPT-4: 93293 05/14/2014 CEFTRIAXONE SODIUM INJECTION CPT-4: J0696 04/21/2014 THER/PROPH/DIAG INJ SC/IM CPT-4: 30446 04/21/2014 THER/PROPH/DIAG INJ SC/IM CPT-4: 33029 04/21/2014 TRIAMCINOLONE ACET INJ NOS CPT-4: J3301 04/21/2014 THER/PROPH/DIAG INJ SC/IM CPT-4: 89117 03/04/2014 METHYLPREDNISOLONE 40 MG INJ CPT-4: J1030 03/04/2014 TRIAMCINOLONE ACET INJ NOS CPT-4: J3301 03/04/2014 CEFTRIAXONE SODIUM INJECTION CPT-4: J0696 03/04/2014 THER/PROPH/DIAG INJ SC/IM CPT-4: 83094 03/04/2014 TDAP VACCINE 7 YRS/> IM CPT-4: 91563 02/27/2014 IMMUNIZATION ADMIN CPT-4: 04504 02/27/2014 DESTRUCT PREMALG LESION (Cryosurgery) CPT-4: 10121 DESTRUCT PREMALG LES 2-14 CPT-4: 48326 01/13/2014 THER/PROPH/DIAG INJ SC/IM CPT-4: 99068 10/21/2013 METHYLPREDNISOLONE 40 MG INJ CPT-4: J1030 10/21/2013 TRIAMCINOLONE ACET INJ NOS CPT-4: J3301 10/21/2013 CEFTRIAXONE SODIUM INJECTION CPT-4: J0696 08/27/2013 THER/PROPH/DIAG INJ SC/IM CPT-4: 58710 08/27/2013 THER/PROPH/DIAG INJ SC/IM CPT-4: 03086 08/27/2013 METHYLPREDNISOLONE 40 MG INJ CPT-4: J1030 08/27/2013 TRIAMCINOLONE ACET INJ NOS CPT-4: J3301 08/27/2013 THER/PROPH/DIAG INJ SC/IM CPT-4: 23404 06/23/2013 METHYLPREDNISOLONE 40 MG INJ CPT-4: J1030 06/23/2013 TRIAMCINOLONE ACET INJ NOS CPT-4: J3301 06/23/2013 THER/PROPH/DIAG INJ SC/IM CPT-4: 69881 05/26/2013 METHYLPREDNISOLONE 40 MG INJ CPT-4: J1030 05/26/2013 TRIAMCINOLONE ACET INJ NOS CPT-4: J3301 05/26/2013 ROUTINE VENIPUNCTURE CPT-4: 32137 03/05/2013 ASSAY OF FREE THYROXINE CPT-4: 30272 03/05/2013 ASSAY THYROID STIM HORMONE CPT-4: 27517 03/05/2013 COMPREHEN METABOLIC PANEL CPT-4: 43518 03/05/2013 COMPLETE CBC W/AUTO DIFF WBC CPT-4: 80407 03/05/2013 A1C GLYCOSYLATED HEMOGLOBIN TEST CPT-4: 04192 013 DRAIN/INJECT JOINT/BURSA CPT-4: 66470 12/04/2012 METHYLPREDNISOLONE 40 MG INJ CPT-4: J1030 12/04/2012 TRIAMCINOLONE ACET INJ NOS CPT-4: J3301 12/04/2012 CEFTRIAXONE SODIUM INJECTION CPT-4: J0696 11/21/2012 THER/PROPH/DIAG INJ SC/IM CPT-4: 41712 11/21/2012 THER/PROPH/DIAG INJ SC/IM CPT-4: 61333 10/14/2012 METHYLPREDNISOLONE 40 MG INJ CPT-4: J1030 10/14/2012 TRIAMCINOLONE ACET INJ NOS CPT-4: J3301 10/14/2012 URINALYSIS NONAUTO W/O SCOPE CPT-4: 92836 09/27/2012 ROUTINE VENIPUNCTURE CPT-4: 25773 09/25/2012 ASSAY OF FREE THYROXINE CPT-4: 01564 09/25/2012 ASSAY THYROID STIM HORMONE CPT-4: 16271 09/25/2012 COMPREHEN METABOLIC PANEL CPT-4: 91170 09/25/2012 COMPLETE CBC W/AUTO DIFF WBC CPT-4: 14914 09/25/2012 C-REACTIVE PROTEIN CPT-4: 95452 09/25/2012 THER/PROPH/DIAG INJ SC/IM CPT-4: 60701 08/29/2012 METHYLPREDNISOLONE 40 MG INJ CPT-4: J1030 08/29/2012 TRIAMCINOLONE ACET INJ NOS CPT-4: J3301 08/29/2012 DESTRUCT PREMALG LESION (Cryosurgery) CPT-4: 03345 THER/PROPH/DIAG INJ SC/IM CPT-4: 77298 05/06/2012 METHYLPREDNISOLONE 40 MG INJ CPT-4: J1030 05/06/2012 TRIAMCINOLONE ACET INJ NOS CPT-4: J3301 05/06/2012 VITAMIN B 12 FOLIC ACID CPT-4: 23798|05401 05/06/2012 RBC SED RATE AUTOMATED CPT-4: 22498 05/06/2012 ROUTINE VENIPUNCTURE CPT-4: 66229 05/06/2012 ASSAY OF FREE THYROXINE CPT-4: 19322 05/06/2012 ASSAY THYROID STIM HORMONE CPT-4: 96369 05/06/2012 COMPREHEN METABOLIC PANEL CPT-4: 20092 05/06/2012 COMPLETE CBC W/AUTO DIFF WBC CPT-4: 60063 05/06/2012 ASSAY OF BLOOD/URIC ACID CPT-4: 00590 05/06/2012 THER/PROPH/DIAG INJ SC/IM CPT-4: 62007 03/19/2012 KETOROLAC TROMETHAMINE INJ CPT-4: J1885 03/19/2012 KETOROLAC TROMETHAMINE INJ CPT-4: J1885 01/30/2012 THER/PROPH/DIAG INJ SC/IM CPT-4: 18670 01/30/2012 PROMETHAZINE HCL INJECTION CPT-4: J2550 01/30/2012 THER/PROPH/DIAG INJ SC/IM CPT-4: 34453 01/24/2012 METHYLPREDNISOLONE 40 MG INJ CPT-4: J1030 01/24/2012 TRIAMCINOLONE ACET INJ NOS CPT-4: J3301 01/24/2012 THER/PROPH/DIAG INJ SC/IM CPT-4: 09211 09/13/2011 KETOROLAC TROMETHAMINE INJ CPT-4: J1885 09/13/2011 THER/PROPH/DIAG INJ SC/IM CPT-4: 79163 09/13/2011 PROMETHAZINE HCL INJECTION CPT-4: J2550 09/13/2011 CEFTRIAXONE SODIUM INJECTION CPT-4: J0696 07/20/2011 THER/PROPH/DIAG INJ SC/IM CPT-4: 73258 07/20/2011 THER/PROPH/DIAG INJ SC/IM CPT-4: 40474 07/20/2011 METHYLPREDNISOLONE INJECTION CPT-4: J2930 07/20/2011 URINALYSIS NONAUTO W/O SCOPE CPT-4: 34788 05/09/2011 CEFTRIAXONE SODIUM INJECTION CPT-4: J0696 05/09/2011 THER/PROPH/DIAG INJ SC/IM CPT-4: 80752 05/09/2011 THER/PROPH/DIAG INJ SC/IM CPT-4: 67148 05/09/2011 PROMETHAZINE HCL INJECTION CPT-4: J2550 05/09/2011 HYDRATION IV INFUSION INIT CPT-4: 02869 05/09/2011 DESTRUCT PREMALG LESION (Cryosurgery) CPT-4: 92634 DESTRUCT PREMALG LES 2-14 CPT-4: 96917 07/19/2010 REMOVAL OF SKIN TAGS <W/15 CPT-4: 86621 05/30/2010 THER/PROPH/DIAG INJ SC/IM CPT-4: 68150 04/05/2010 CEFTRIAXONE SODIUM INJECTION CPT-4: J0696 04/05/2010 TRIAMCINOLONE ACET INJ NOS CPT-4: J3301 04/05/2010 METHYLPREDNISOLONE 40 MG INJ CPT-4: J1030 04/05/2010 THER/PROPH/DIAG INJ SC/IM CPT-4: 93738 04/05/2010 TRIAMCINOLONE ACET INJ NOS CPT-4: J3301 03/09/2010 METHYLPREDNISOLONE 40 MG INJ CPT-4: J1030 03/09/2010 THER/PROPH/DIAG INJ SC/IM CPT-4: 83089 03/09/2010 THER/PROPH/DIAG INJ SC/IM CPT-4: 16757 03/09/2010 CEFTRIAXONE SODIUM INJECTION CPT-4: J0696 03/09/2010 [...] 1: 132/80 Code: 8480-6 BMI: 35.8 Code: 26440-0 Heart Rate 1: 88 bpm Height: 5'4" Respiratory Rate: 20 bpm SpO2: 95% Tempera ture: 36.9 (C) / 98.5 (F) Weight: 210 lbs 05/28/2019 Blood Pressure 1: 126/82 Code: 8480-6 BMI: 35.0 Code: 61549-8 Heart Rate 1: 88 bpm Height: 5'4" [...] 1: 128/90 Code: 8480-6 BMI: 37.2 Code: 24916-5 Heart Rate 1: 84 bpm Height: 5'4" Respiratory Rate: 20 bpm SpO2: 95% Tempera ture: 36.6 (C) / 97.8 (F) Weight: 217 lbs 08/27/2018 Blood Pressure 1: 128/88 Code: 8480-6 BMI: 38.3 Code: 20992-1 Heart Rate 1: 84 bpm Height: 5'4" [...] 1: 119/72 Code: 8480-6 BMI: 37.4 Code: 44213-3 Heart Rate 1: 82 bpm Height: 5'4" Respiratory Rate: 12 bpm SpO2: 94% Tempera ture: 35.2 (C) / 95.4 (F) Weight: 218 lbs 12/18/2017 Blood Pressure 1: 128/86 Code: 8480-6 BMI: 37.8 Code: 74723-7 Heart Rate 1: 84 bpm Height: 5'4" [...] 1: 128/82 Code: 8480-6 BMI: 35.5 Code: 77555-0 Heart Rate 1: 84 bpm Height: 5'4" [...] 1: 128/82 Code: 8480-6 BMI: 30.2 Code: 45234-5 Heart Rate 1: 80 bpm Height: 5'4" [...] 1: 128/86 Code: 8480-6 BMI: 32.8 Code: 61574-2 Heart Rate 1: 66 bpm Height: 5'4" Respiratory Rate: 18 bpm Temperature: 36 .3 (C) / 97.3 (F) Weight: 191 lbs 06/23/2013 Blood Pressure 1: 132/94 Code: 8480-6 BMI: 34.0 Code: 40624-8 Heart Rate 1: 84 bpm Height: 5'4" Respiratory Rate: 20 bpm Temperature: 36 .8 (C) / 98.2 (F) Weight: 198 lbs 05/26/2013 Blood Pressure 1: 114/80 Code: 8480-6 BMI: 35.0 Code: 42362-4 Heart Rate 1: 80 bpm Height: 5'4" Respiratory Rate: 20 bpm Temperature: 36 .4 (C) / 97.6 (F) Weight: 204 lbs 04/16/2013 Blood Pressure 1: 114/82 Code: 8480-6 BMI: 36.7 Code: 80932-9 Heart Rate 1: 84 bpm Height: 5'4" Respiratory Rate: 20 bpm Temperature: 36 .7 (C) / 98.0 (F) Weight: 214 lbs 03/05/2013 Blood Pressure 1: 136/90 Code: 8480-6 BMI: 37.1 Code: 67026-9 Heart Rate 1: 84 bpm Height: 5'4" [...] 1: 168/114 Code: 8480-6 BMI: 36.2 Code: 21830-8 Heart Rate 1: 104 bpm Height: 5'4" Respiratory Rate: 20 bpm Temperature: 36 .8 (C) / 98.2 (F) Weight: 211 lbs 11/22/2012 Blood Pressure 1: 128/90 Code: 8480-6 Heart Rate 1: 88 bpm Respiratory Rate: 20 bpm SpO2: 96% Temperature: 36.8 (C) / 98.2 (F) 11/21/2012 Blood Pressure 1: 146/100 Code: 8480-6 BMI: 35.7 Code: 01551-1 Heart Rate 1: 96 bpm Height: 5'4" [...] 1: 138/100 Code: 8480-6 BMI: 35.7 Code: 31100-3 Heart Rate 1: 96 bpm Height: 5'4" Respiratory Rate: 20 bpm Temperature: 36 .8 (C) / 98.2 (F) Weight: 208 lbs 05/06/2012 Blood Pressure 1: 154/102 Code: 8480-6 BMI: 34.7 Code: 16671-4 Heart Rate 1: 116 bpm Height: 5'4" Respiratory Rate: 20 bpm Temperature: 36 .8 (C) / 98.2 (F) Weight: 202 lbs 04/03/2012 Blood Pressure 1: 134/94 Code: 8480-6 BMI: 34.8 Code: 56777-8 Heart Rate 1: 108 bpm Height: 5'4" Respiratory Rate: 20 bpm Temperature: 36 .8 (C) / 98.2 (F) Weight: 203 lbs 03/19/2012 Blood Pressure 1: 148/106 Code: 8480-6 BMI: 35.0 Code: 03150-7 Heart Rate 1: 100 bpm Height: 5'4" Respiratory Rate: 20 bpm Temperature: 36 .6 (C) / 97.9 (F) Weight: 204 lbs 02/22/2012 Blood Pressure 1: 146/94 Code: 8480-6 He art Rate 1: 88 bpm 02/21/2012 Blood Pressure 1: 172/120 Code: 8480-6 B lood Pressure 2: 152/106 Code: 8480-6 Heart Rate 1: 116 bpm 02/20/2012 Blood Pressure 1: 160/100 Code: 8480-6 BMI: 32.0 Code: 59167-2 Heart Rate 1: 84 bpm Height: 5'7" Temperature: 36.5 (C) / 97.7 (F) Weight: 204 lbs 01/30/2012 Blood Pressure 1: 152/110 Code: 8480-6 BMI: 32.0 Code: 01490-8 Heart Rate 1: 116 bpm Height: 5'7" Respiratory Rate: 20 bpm Temperature: 37 .0 (C) / 98.6 (F) Weight: 204 lbs 01/24/2012 Blood Pressure 1: 146/100 Code: 8480-6 BMI: 32.0 Code: 91370-1 Heart Rate 1: 100 bpm Height: 5'7" Respiratory Rate: 20 bpm Temperature: 36 .7 (C) / 98.0 (F) Weight: 204 lbs 01/10/2012 Blood Pressure 1: 156/94 Code: 8480-6 BMI: 32.6 Code: 83873-1 Heart Rate 1: 72 bpm Height: 5'7" Respiratory Rate: 20 bpm Temperature: 36 .8 (C) / 98.2 (F) Weight: 208 lbs 12/11/2011 Blood Pressure 1: 146/100 Code: 8480-6 Heart Rat e 1: 116 bpm Height: 5'7" Respiratory Rate: 20 bpm Temperature: 36.9 (C) / 98.4 (F) We ight: 11/09/2011 Blood Pressure 1: 148/96 Code: 8480-6 BMI: 32.1 Code: 56844-4 Heart Rate 1: 116 bpm Height: 5'7" Respiratory Rate: 20 bpm Temperature: 36 .7 (C) / 98.0 (F) Weight: 205 lbs 09/13/2011 Blood Pressure 1: 126/88 Code: 8480-6 Heart Rate 1: 88 bpm Height: 5'7" Respiratory Rate: 20 bpm Temperature: 36.9 (C) / 98.4 (F) We ight: 08/31/2011 Blood Pressure 1: 118/82 Code: 8480-6 BMI: 32.0 Code: 56634-0 Heart Rate 1: 80 bpm Height: 5'7" Temperature: 36.4 (C) / 97.6 (F) Weight: 204 lbs 07/06/2011 Blood Pressure 1: 128/86 Code: 8480-6 BMI: 30.9 Code: 33478-2 Heart Rate 1: 92 bpm Height: 5'7" Respiratory Rate: 20 bpm Temperature: 36 .9 (C) / 98.4 (F) Weight: 197 lbs 06/06/2011 Blood Pressure 1: 112/74 Code: 8480-6 BMI: 31.0 Code: 63088-6 Heart Rate 1: 72 bpm Height: 5'7" [...] 1: 128/92 Code: 8480-6 BMI: 33.6 Code: 74906-8 Heart Rate 1: 104 bpm Height: 5'4" [...] Check-up Encounters Encounter Performer Location Codes Date ([id number]) OFFICE/OUTPATIENT VISIT EST Diagnosis: Type 2 diabetes mellitus with hyperglycemia[ICD10: E11.65] María Elena MONTEROQUELINE Fabiola APPIAH [facility] CPT-4: 00699 11/20/2019 ([id number]) OFFICE/OUTPATIENT VISIT EST Diagnosis: Ingrowing nail[ICD10: L60.0] Diagnosis: Type 2 diabetes mellitus with hyperglycemia[ICD10: E11.65] Kathleen APPIAH DO [facility] CPT-4: 32849 10/07/2019 ([id number]) OFFICE/OUTPATIENT VISIT EST Diagnosis: DM w/o complication type II, uncontrolled[ICD10: E11.65] Diagnosis: Hypertriglyceridemia[ICD10: E78.1] Diagnosis: Essential hypertension[ICD10: I10] María Elena BASURTO TED APPIAH [facility] CPT-4: 33823 09/30/2019 ([id number]) NURSE/OUTPATIENT VISIT EST Diagnosis: Essential (primary) hypertension[ICD10: I10] Diagnosis: Cervicalgia[ICD10: M54.2] Diagnosis: Hyperglycemia, unspecified[ICD10: R73.9] Diagnosis: Mixed hyperlipidemia[ICD10: E78.2] María Elena BASURTO TED APPIAH [facility] CPT-4: 66699 09/29/2019 ([id number]) OFFICE/OUTPATIENT VISIT EST Diagnosis: Essential (primary) hypertension[ICD10: I10] Diagnosis: Fall from bed, sequela[ICD10: W06.XXXS] María Elena REED LucioJj TD [facility] CPT-4: 54311 05/28/2019 ([id number]) NURSE/OUTPATIENT VISIT EST Diagnosis: Essential (primary) hypertension[ICD10: I10] María Elena JUARES Fabiola APPIAH [facility] CPT-4: 95857 05/19/2019 ([id number]) OFFICE/OUTPATIENT VISIT EST Diagnosis: Essential (primary) hypertension[ICD10: I10] Diagnosis: Type 2 diabetes mellitus with hyperglycemia[ICD10: E11.65] Diagnosis: Intervertebral disc disorders with radiculopathy, 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] Diagnosis: Hormone replacement therapy[ICD10: Z79.890] María Elena JUARES LucioJj TD [facility] CPT-4: 41629 01/22/2019 ([id number]) OFFICE/OUTPATIENT VISIT EST Diagnosis: Essential (primary) hypertension[ICD10: I10] Diagnosis: Type 2 diabetes mellitus with hyperglycemia[ICD10: E11.65] María Elena APPIAH [facility] CPT-4: 74712 09/30/2018 ([id number]) OFFICE/OUTPATIENT VISIT EST Diagnosis: Pain in left elbow[ICD10: M25.522] Diagnosis: Acute stress reaction[ICD10: F43.0] Diagnosis: Primary insomnia[ICD10: F51.01] Diagnosis: Abnormal weight gain[ICD10: R63.5] María Elena APPIAH [facility] CPT-4: 68703 08/27/2018 ([id number]) OFFICE/OUTPATIENT VISIT EST Diagnosis: Acute recurrent sinusitis, unspecified[ICD10: J01.91] Diagnosis: Follicular disorder, unspecified[ICD10: L73.9] Diagnosis: Tinea corporis[ICD10: B35.4] María Elena APPIAH [facility] CPT-4: 66648 08/09/2018 ([id number]) OFFICE/OUTPATIENT VISIT EST Diagnosis: Tinea corporis[ICD10: B35.4] Diagnosis: Anxiety disorder, unspecified[ICD10: F41.9] Diagnosis: Menopausal and female climacteric states[ICD10: N95.1] María Elena APPIAH [facility] CPT-4: 24464 07/22/2018 ([id number]) NURSE/OUTPATIENT VISIT EST Diagnosis: Cellulitis of right toe[ICD10: L03.031] María Elena APPIAH [facility] CPT-4: 30623 06/19/2018 ([id number]) OFFICE/OUTPATIENT VISIT EST Diagnosis: Cellulitis of right toe[ICD10: L03.031] Kathleen APPIAH [facility] CPT-4: 77239 06/17/2018 ([id number]) OFFICE/OUTPATIENT VISIT EST Diagnosis: Migraine without aura, intractable, without status migrainosus[ICD10: G43.019] Diagnosis: Zoster without complications[ICD10: B02.9] Kathleen APPIAH DO [facility] CPT-4: 22157 05/16/2018 ([id number]) OFFICE/OUTPATIENT VISIT EST Diagnosis: Cellulitis of right lower limb[ICD10: L03.115] Kathleen APPIAH DO [facility] CPT-4: 42855 03/20/2018 ([id number]) OFFICE/OUTPATIENT VISIT EST Diagnosis: Cellulitis of right lower limb[ICD10: L03.115] Kathleen APPIAH DO [facility] CPT-4: 47136 03/18/2018 ([id number]) OFFICE/OUTPATIENT VISIT EST Diagnosis: Cellulitis of right lower limb[ICD10: L03.115] Kathleen APPIAH DO [facility] CPT-4: 69152 03/15/2018 ([id number]) OFFICE/OUTPATIENT VISIT EST Diagnosis: Acute sinusitis, unspecified[ICD10: J01.90] Kathleen APPIAH DO [facility] CPT-4: 58428 02/11/2018 ([id number]) NURSE/OUTPATIENT VISIT EST Diagnosis: Otitis media, unspecified, right ear[ICD10: H66.91] María Elena APPIAH DO [facility] CPT-4: 05628 02/01/2018 ([id number]) OFFICE/OUTPATIENT VISIT EST Diagnosis: Acute suppurative otitis media without spontaneous rupture of ear drum, left ear[ICD10: H66.002] Diagnosis: Abnormal weight gain[ICD10: R63.5] Diagnosis: Intervertebral disc disorders with radiculopathy, 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] Kathleen APPIAH DO [facility] CPT-4: 99 214 01/30/2018 ([id number]) PREV VISIT EST AGE 40-64 Diagnosis: Encounter for general adult medical examination without abnormal findings[ICD10: Z00.00] Diagnosis: Essential (primary) hypertension[ICD10: I10] Diagnosis: Mixed hyperlipidemia[ICD10: E78.2] Diagnosis: Type 2 diabetes mellitus with hyperglycemia[ICD10: E11.65] Diagnosis: 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] María Elena APPIAH DO [facility] CPT-4: 12427 12/18/2017 ([id number]) OFFICE/OUTPATIENT VISIT EST Diagnosis: Cellulitis of right toe[ICD10: L03.031] Diagnosis: Mixed hyperlipidemia[ICD10: E78.2] Diagnosis: Essential (primary) hypertension[ICD10: I10] Diagnosis: Hyperglycemia, unspecified[ICD10: R73.9] Diagnosis: Nontoxic goiter, 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] María Elena APPIAH DO [facility] CPT-4: 54596 12/10/2017 ([id number]) OFFICE/OUTPATIENT VISIT EST Diagnosis: Cellulitis of right toe[ICD10: L03.031] Diagnosis: Acute sinusitis, unspecified[ICD10: J01.90] Kathleen APPIAH DO [facility] CPT-4: 46216 12/07/2017 OFFICE/OUTPATIENT VISIT EST Diagnosis: Acute maxillary sinusitis, unspecified[ICD10: J01.00] Kathleen APPIAH DO [facility] CPT-4: 88832 10/08/2017 ([id number]) OFFICE/OUTPATIENT VISIT EST Diagnosis: Cellulitis of left toe[ICD10: L03.032] María Elena APPIAH [facility] CPT-4: 08506 09/21/2017 ([id number]) OFFICE/OUTPATIENT VISIT EST Diagnosis: Insomnia, unspecified[ICD10: G47.00] Diagnosis: Major depressive disorder, single episode, unspecified[ICD10: F32.9] Diagnosis: Anxiety disorder, unspecified[ICD10: F41.9] Diagnosis: Cellulitis of left toe[ICD10: L03.032] Diagnosis: Snoring[ICD10: R06.83] Kathleen APPIAH DO [facility] CPT-4: 99716 09/20/2017 ([id number]) OFFICE/OUTPATIENT VISIT EST Diagnosis: Cellulitis of left toe[ICD10: L03.032] María Elena APPIAH DO [facility] CPT-4: 08714 07/19/2017 OFFICE/OUTPATIENT VISIT EST Diagnosis: Chronic sinusitis, unspecified[ICD10: J32.9] Diagnosis: Generalized hyperhidrosis[ICD10: R61] Kathleen APPIAH [employer] [facility] CPT-4: 60109 06/27/2017 ([id number]) OFFICE/OUTPATIENT VISIT EST Diagnosis: Intervertebral disc disorders with radiculopathy, 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] Diagnosis: Primary insomnia[ICD10: F51.01] Diagnosis: Other fatigue[ICD10: R53.83] María Elena APPIAH [employer] [facility] CPT-4: 48929 04/10/2017 ([id number]) OFFICE/OUTPATIENT VISIT EST Diagnosis: Primary insomnia[ICD10: F51.01] Diagnosis: Localized edema[ICD10: R60.0] Diagnosis: 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] María Elena APPIAH [employer] [facility] CPT-4: 69169 12/13/2016 ([id number]) OFFICE/OUTPATIENT VISIT EST Diagnosis: Primary insomnia[ICD10: F51.01] Diagnosis: Cyanosis[ICD10: R23.0] María Elena [employer] CPT-4: 34180 11/01/2016 ([id number]) PREV VISIT EST AGE 40-64 Diagnosis: Encounter for gynecological examination (general) (routine) without abnormal findings[ICD10: Z01.419] Diagnosis: Encounter for routine child health examination without abnormal findings[ICD10: Z00.129] María Elena APPIAH [employer] [facility] CPT-4: 14043 10/17/2016 ([id number]) OFFICE/OUTPATIENT VISIT EST Diagnosis: Other seasonal allergic rhinitis[ICD10: J30.2] María Elena APPIAH [employer] CPT-4: 48998 10/10/2016 ([id number]) OFFICE/OUTPATIENT VISIT EST Diagnosis: Pain in left arm[ICD10: M79.602] Diagnosis: Contact with and (suspected) exposure to potentially hazardous body fluids[ICD10: Z77.21] Diagnosis: 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, 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] Diagnosis: Unspecified open wound, right foot, sequela[ICD10: S91.301S] María Elena APPIAH DO [facility] CPT-4: 78411 09/19/2016 ([id number]) OFFICE/OUTPATIENT VISIT EST Diagnosis: Chronic sinusitis, unspecified[ICD10: J32.9] Diagnosis: Allergic rhinitis due to pollen[ICD10: J30.1] María Elena APPIAH DO [facility] CPT-4: 19626 08/24/2016 ([id number]) OFFICE/OUTPATIENT VISIT EST Diagnosis: Acute bronchitis, unspecified[ICD10: J20.9] María Elena APPIAH DO [facility] CPT-4: 13856 08/16/2016 ([id number]) OFFICE/OUTPATIENT VISIT EST Diagnosis: Otitis media, unspecified, right ear[ICD10: H66.91] Diagnosis: Acute bronchitis, unspecified[ICD10: J20.9] María Elena APPIAH DO [facility] CPT-4: 49510 08/10/2016 ([id number]) OFFICE/OUTPATIENT VISIT EST Diagnosis: Acute recurrent sinusitis, unspecified[ICD10: J01.91] Diagnosis: Allergic rhinitis due to pollen[ICD10: J30.1] María Elena APPIAH DO [facility] CPT-4: 57239 08/02/2016 ([id number]) OFFICE/OUTPATIENT VISIT EST Diagnosis: Pain in unspecified joint[ICD10: M25.50] María Elena APPIAH DO [facility] CPT-4: 18493 07/27/2016 OFFICE/OUTPATIENT VISIT EST Diagnosis: 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] Diagnosis: Acute recurrent sinusitis, unspecified[ICD10: J01.91] Diagnosis: Other fatigue[ICD10: R53.83] Diagnosis: Primary insomnia[ICD10: F51.01] Diagnosis: Pain in unspecified joint[ICD10: M25.50] María Elena APPIAH DO [facility] CPT-4: 98208 07/20/2016 ([id number]) OFFICE/OUTPATIENT VISIT EST Diagnosis: Blister (nonthermal), left great toe, initial encounter[ICD10: S90.422A] Loan APPIAH DO [facility] CPT-4: 89338 ([id number]) OFFICE/OUTPATIENT VISIT EST Diagnosis: Acute recurrent sinusitis, unspecified[ICD10: J01.91] María Elena APPIAH DO [facility] CPT-4: 78588 05/25/2016 ([id number]) OFFICE/OUTPATIENT VISIT EST Diagnosis: Acute sinusitis, unspecified[ICD10: J01.90] María Elena APPIAH DO [facility] CPT-4: 64440 04/26/2016 ([id number]) OFFICE/OUTPATIENT VISIT EST Diagnosis: Flushing[ICD10: R23.2] Diagnosis: Primary insomnia[ICD10: F51.01] María Elena APPIAH [facility] CPT-4: 07305 03/02/2016 ([id number]) OFFICE/OUTPATIENT VISIT EST Diagnosis: Other seasonal allergic rhinitis[ICD10: J30.2] Loan APPIA[facility] CPT-4: 61982 02/09/2016 ([id number]) OFFICE/OUTPATIENT VISIT EST Diagnosis: Primary insomnia[ICD10: F51.01] Diagnosis: Urinary tract infection, site not specified[ICD10: N39.0] María Elena [facility] CPT-4: 00253 01/24/2016 ([id number]) OFFICE/OUTPATIENT VISIT EST Diagnosis: Other specified disorders of Eustachian tube, bilateral[ICD10: H69.83] Diagnosis: Allergic rhinitis, unspecified[ICD10: J30.9] Loan [facility] CPT-4: 18457 12/23/2015 ([id number]) OFFICE/OUTPATIENT VISIT EST Diagnosis: Acute recurrent sinusitis, unspecified[ICD10: J01.91] Diagnosis: 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] Diagnosis: Allergic rhinitis, unspecified[ICD10: J30.9] María Elena [facility] CPT-4: 34551 12/08/2015 ([id number]) OFFICE/OUTPATIENT VISIT EST Diagnosis: Allergic rhinitis, unspecified[ICD10: J30.9] Diagnosis: Pain in unspecified joint[ICD10: M25.50] María Elena [facility] CPT-4: 22684 10/07/2015 ([id number]) OFFICE/OUTPATIENT VISIT EST Diagnosis: Essential (primary) hypertension[ICD10: I10] María Elena [facility] CPT-4: 05594 10/06/2015 OFFICE/OUTPATIENT VISIT EST Diagnosis: Localized enlarged lymph nodes[ICD10: R59.0] Diagnosis: Local infection of the skin and subcutaneous tissue, unspecified[ICD10: L08.9] June Felixgurmeetfatimah MARÍA ELENA [facility] CPT- 4: 62827 09/14/2015 ([id number]) OFFICE/OUTPATIENT VISIT EST Diagnosis: Essential (primary) hypertension[ICD10: I10] Diagnosis: Actinic keratosis[ICD10: L57.0] María Elena [facility] CPT-4: 18716 09/07/2015 ([id number]) OFFICE/OUTPATIENT VISIT EST Diagnosis: Essential (primary) hypertension[ICD10: I10] Diagnosis: Acute stress reaction[ICD10: F43.0] María Elena [facility] CPT-4: 92141 08/18/2015 ([id number]) OFFICE/OUTPATIENT VISIT EST Diagnosis: Essential (primary) hypertension[ICD10: I10] María Elena [facility] CPT-4: 76830 07/07/2015 ([id number]) OFFICE/OUTPATIENT VISIT EST Diagnosis: Essential (primary) hypertension[ICD10: I10] María Elena [facility] CPT-4: 23221 06/24/2015 ([id number]) OFFICE/OUTPATIENT VISIT EST Diagnosis: Essential (primary) hypertension[ICD10: I10] María Elena [facility] CPT-4: 19291 06/21/2015 ([id number]) OFFICE/OUTPATIENT VISIT EST Diagnosis: Essential (primary) hypertension[ICD10: I10] Diagnosis: Mixed hyperlipidemia[ICD10: E78.2] Diagnosis: Acute stress reaction[ICD10: F43.0] Diagnosis: Primary insomnia[ICD10: F51.01] María Elena [facility] CPT-4: 33576 06/16/2015 ([id number]) OFFICE/OUTPATIENT VISIT EST Diagnosis: INSOMNIA NOS[ICD9: 780.52] Diagnosis: HYPERTENSION[ICD9: 401.9] Diagnosis: Stress reaction[ICD9: 308.9] María Elena ValdesJj TD [facility] CPT-4: 96794 06/02/2015 ([id number]) OFFICE/OUTPATIENT VISIT EST Diagnosis: HYPERTENSION[ICD9: 401.9] Diagnosis: Stress reaction[ICD9: 308.9] María Elena ValdesJj TD [facility] CPT-4: 88039 05/20/2015 ([id number]) OFFICE/OUTPATIENT VISIT EST Diagnosis: Skin lesion[ICD9: 709.9] 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] María Elena ELLISLINE LucioJj [facility] CPT-4: 04954 05/10/2015 ([id number]) OFFICE/OUTPATIENT VISIT EST Diagnosis: SINUSITIS, ACUTE[ICD9: 461.9] Diagnosis: ALLERGIC RHINITIS[ICD9: 477.9] Diagnosis: DERMATITIS NOS[ICD9: 692.9] María Elena ELLISALCIDES Hicks Marcos ORI [facility] CPT-4: 15134 03/16/2015 OFFICE/OUTPATIENT VISIT EST Diagnosis: Otitis media[ICD9: 382.9] Diagnosis: SINUSITIS, ACUTE[ICD9: 461.9] June Flores MARÍA ELENA LucioJj [facility] CPT-4: 88660 09/11/2014 ([id number]) OFFICE/OUTPATIENT VISIT EST Diagnosis: HYPERLIPIDEMIA NEC/NOS[ICD9: 272.4] María Elena Seamusabbey COLON LucioJj [facility] CPT-4: 47745 08/31/2014 ([id number]) OFFICE/OUTPATIENT VISIT EST Diagnosis: - I - HYPERTENSION[ICD9: 401.9] Diagnosis: HYPERLIPIDEMIA NEC/NOS[ICD9: 272.4] María Elena [facility] CPT-4: 92239 08/27/2014 ([id number]) OFFICE/OUTPATIENT VISIT EST Diagnosis: ABDOMINAL PAIN[ICD9: 789.00] Diagnosis: DYSPEPSIA[ICD9: 536.8] Diagnosis: Thoracic back pain[ICD9: 724.1] María Elena [facility] CPT-4: 12348 07/21/2014 ([id number]) OFFICE/OUTPATIENT VISIT EST Diagnosis: ALLERGIC RHINITIS[ICD9: 477.9] María Elena [facility] CPT-4: 48497 07/15/2014 ([id number]) OFFICE/OUTPATIENT VISIT EST Diagnosis: EDEMA[ICD9: 782.3] Diagnosis: Chronic insomnia[ICD9: 780.52] María Elena APPIAH [facility] CPT-4: 75696 05/18/2014 ([id number]) OFFICE/OUTPATIENT VISIT EST Diagnosis: Thyromegaly[ICD9: 240.9] Diagnosis: - I - HYPERTENSION[ICD9: 401.9] Diagnosis: ROUTINE MEDICAL EXAM[ICD9: V70.0] Diagnosis: EDEMA[ICD9: 782.3] María Elena APPIAH [facility] CPT-4: 79167 05/14/2014 OFFICE/OUTPATIENT VISIT EST Diagnosis: BRONCHITIS, ACUTE[ICD9: 466.0] Diagnosis: SINUSITIS, ACUTE[ICD9: 461.9] María Elena [facility] CPT-4: 96849 04/21/2014 OFFICE/OUTPATIENT VISIT EST Diagnosis: SINUSITIS, ACUTE[ICD9: 461.9] June Flores MARÍA ELENA APPIAH [facility] CPT-4: 05078 03/04/2014 ([id number]) OFFICE/OUTPATIENT VISIT EST Diagnosis: VACCINE FOR TDAP[ICD10: Z23] María Elena APPIAH [facility] CPT-4: 40624 02/27/2014 ([id number]) OFFICE/OUTPATIENT VISIT EST Diagnosis: Seborrheic keratoses, inflamed[ICD9: 702.11] Diagnosis: ACTINIC KERATOSIS[ICD9: 702.0] Diagnosis: INSOMNIA NOS[ICD9: 780.52] María Elena PANDYA [facility] CPT-4: 75811 01/13/2014 OFFICE/OUTPATIENT VISIT EST 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] Diagnosis: ALLERGIC RHINITIS[ICD9: 477.9] Diagnosis: Serous otitis media[ICD9: 381.4] María Elena [facility] CPT-4: 85627 12/24/2013 ([id number]) OFFICE/OUTPATIENT VISIT EST Diagnosis: SINUSITIS, ACUTE[ICD9: 461.9] Diagnosis: ALLERGIC RHINITIS[ICD9: 477.9] 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] María Elena [facility] CPT-4: 21943 11/12/2013 ([id number]) OFFICE/OUTPATIENT VISIT EST Diagnosis: ALLERGIC RHINITIS[ICD9: 477.9] Diagnosis: SINUSITIS, ACUTE[ICD9: 461.9] María Elena [facility] CPT-4: 35287 10/21/2013 ([id number]) OFFICE/OUTPATIENT VISIT EST Diagnosis: ASYMPTOMATIC VARICOSE VEINS[ICD9: 454.9] Diagnosis: INSOMNIA NOS[ICD9: 780.52] María Elena [facility] CPT-4: 74526 09/22/2013 OFFICE/OUTPATIENT VISIT EST Diagnosis: SINUSITIS, ACUTE[ICD9: 461.9] June Flores MARÍA ELENA [facility] CPT-4: 49608 08/27/2013 ([id number]) OFFICE/OUTPATIENT VISIT EST Diagnosis: CEPHALGIA[ICD9: 784.0] Diagnosis: CEPHALGIA, TENSION[ICD9: 307.81] 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] María Elena APPIAH [facility] [employer] CPT-4: 31678 08/04/2013 ([id number]) OFFICE/OUTPATIENT VISIT EST Diagnosis: Cervicalgia[ICD9: 723.1] Diagnosis: SPASM OF MUSCLE[ICD9: 728.85] Diagnosis: CEPHALGIA, TENSION[ICD9: 307.81] María Elena APPIAH [facility] [employer] CPT-4: 94532 07/23/2013 ([id number]) OFFICE/OUTPATIENT VISIT EST 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] Diagnosis: ALLERGIC RHINITIS[ICD9: 477.9] María Elena [facility] CPT-4: 07686 06/23/2013 ([id number]) OFFICE/OUTPATIENT VISIT EST Diagnosis: ALLERGIC RHINITIS[ICD9: 477.9] Diagnosis: ACUTE SEROUS OTITIS MEDIA[ICD9: 381.01] 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] María Elena [facility] CPT-4: 05429 05/26/2013 ([id number]) OFFICE/OUTPATIENT VISIT EST Diagnosis: HYPERTENSION[ICD9: 401.9] Diagnosis: EDEMA[ICD9: 782.3] Diagnosis: Serous otitis media[ICD9: 381.4] María Elena APPIAH [facility] [employer] CPT-4: 69284 04/16/2013 ([id number]) OFFICE/OUTPATIENT VISIT EST Diagnosis: SINUSITIS, ACUTE[ICD9: 461.9] Diagnosis: ALLERGIC RHINITIS[ICD9: 477.9] Diagnosis: EDEMA[ICD9: 782.3] Diagnosis: Thyromegaly[ICD9: 240.9] Diagnosis: MALAISE AND FATIGUE[ICD9: 780.79] María Elena APPIAH [facility] [employer] CPT-4: 17136 03/05/2013 ([id number]) OFFICE/OUTPATIENT VISIT EST Diagnosis: PAIN, LOWER BACK[ICD9: 724.2] Diagnosis: SPASM OF MUSCLE[ICD9: 728.85] María Elena APPIAH [facility] [employer] CPT-4: 91198 12/23/2012 OFFICE/OUTPATIENT VISIT EST Diagnosis: Low back pain[ICD9: 724.2] Lashawn Hicks KRISTYN PANDYA [facility] CPT-4: 15897 12/16/2012 ([id number]) OFFICE/OUTPATIENT VISIT EST Diagnosis: PAIN, LOWER BACK[ICD9: 724.2] Diagnosis: SCIATICA[ICD9: 724.3] Diagnosis: Lumbar herniated disc[ICD9: 722.10] María Elena COLON LucioJj TD [facility] CPT-4: 36528 12/09/2012 ([id number]) OFFICE/OUTPATIENT VISIT EST Diagnosis: PAIN, LOWER BACK[ICD9: 724.2] Diagnosis: SCIATICA[ICD9: 724.3] Diagnosis: LUMBAR DISC DISPLACEMENT[ICD9: 722.10] María Elena MARIN LucioJj TD [facility] CPT-4: 32452 12/04/2012 OFFICE/OUTPATIENT VISIT EST Diagnosis: Pneumonia[ICD9: 486] Mary JUARES LucioJj TD [facility] CPT-4: 14160 11/22/2012 ([id number]) OFFICE/OUTPATIENT VISIT EST Diagnosis: PNEUMONIA, ORGANISM[ICD9: 486] Diagnosis: Exacerbation of RAD (reactive airway disease)[ICD9: 493.92] María Elena JUARES LucioJj TD [facility] CPT-4: 90615 11/21/2012 OFFICE/OUTPATIENT VISIT EST Diagnosis: HYPERTENSION[ICD9: 401.9] Diagnosis: Cephalgia[ICD9: 784.0] Lashawn JUARES LucioJj TD [facility] CPT-4: 54067 10/29/2012 ([id number]) OFFICE/OUTPATIENT VISIT EST Diagnosis: MALAISE AND FATIGUE[ICD9: 780.79] Diagnosis: ARTHRALGIA-MULTIPLE SITES[ICD9: 719.49] María Elena REED LucioJj TD [facility] CPT-4: 20373 10/14/2012 ([id number]) OFFICE/OUTPATIENT VISIT EST Diagnosis: URINARY FREQUENCY[ICD9: 788.41] María Elena JUARES LucioJj TD [facility] CPT-4: 56705 09/27/2012 ([id number]) OFFICE/OUTPATIENT VISIT EST Diagnosis: MALAISE AND FATIGUE[ICD9: 780.79] Diagnosis: ARTHRALGIA-MULTIPLE SITES[ICD9: 719.49] María Elena APP[facility]H [facility] CPT-4: 58979 09/25/2012 ([id number]) OFFICE/OUTPATIENT VISIT EST Diagnosis: SINUSITIS, ACUTE[ICD9: 461.9] 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] María Elena APPIAH [facility] CPT-4: 46334 08/29/2012 OFFICE/OUTPATIENT VISIT EST Diagnosis: ACTINIC KERATOSIS[ICD9: 702.0] Diagnosis: Inflamed seborrheic keratosis[ICD9: 702.11] Diagnosis: Skin cancer of face[ICD9: 173.31] Diagnosis: HYPERTENSION[ICD9: 401.9] [facility]: 84786 08/12/2012 ([id number]) OFFICE/OUTPATIENT VISIT EST Diagnosis: ARTHRALGIA-MULTIPLE SITES[ICD9: 719.49] Diagnosis: GOUT[ICD9: 274.9] Diagnosis: HYPERTENSION[ICD9: 401.9] Diagnosis: Tachycardia[ICD9: 785.0] María Elena BRADFORD [facility] CPT-4: 95251 05/06/2012 ([id number]) OFFICE/OUTPATIENT VISIT EST Diagnosis: INSOMNIA NOS[ICD9: 780.52] María Elena PANDYA [facility] CPT-4: 87739 04/03/2012 ([id number]) OFFICE/OUTPATIENT VISIT EST Diagnosis: INSOMNIA NOS[ICD9: 780.52] Diagnosis: HYPERTENSION[ICD9: 401.9] Diagnosis: MIGRAINE NOS/NOT INTRCBL[ICD9: 346.90] María Elena APPIAH [facility] CPT-4: 93271 03/19/2012 ([id number]) OFFICE/OUTPATIENT VISIT EST Diagnosis: CELLULITIS[ICD9: 682.9] Diagnosis: Ankle pain[ICD9: 719.47] Diagnosis: HYPERTENSION[ICD9: 401.9] María Elena ValdesJj SEAMUS NDERose Mary [facility] CPT-4: 56917 02/20/2012 ([id number]) OFFICE/OUTPATIENT VISIT EST Diagnosis: MIGRAINE NOS/NOT INTRCBL[ICD9: 346.90] Diagnosis: Vomiting[ICD9: 787.03] María Elena JUARES LucioJj CIRO Bazzi [facility] CPT-4: 76013 01/30/2012 ([id number]) OFFICE/OUTPATIENT VISIT EST Diagnosis: EDEMA[ICD9: 782.3] Diagnosis: HYPERTENSION[ICD9: 401.9] Diagnosis: ALLERGIC RHINITIS[ICD9: 477.9] Diagnosis: ARTHRALGIA-MULTIPLE SITES[ICD9: 719.49] María Elena Seamusabbey REED LucioJj TD [facility] CPT-4: 38886 01/24/2012 ([id number]) OFFICE/OUTPATIENT VISIT EST Diagnosis: SPASM OF MUSCLE[ICD9: 728.85] Diagnosis: Thoracic back pain[ICD9: 724.1] Diagnosis: Cervical pain[ICD9: 723.1] María Elena Hicks KRISTYN MUMTAZ [facility] CPT-4: 73696 01/10/2012 OFFICE/OUTPATIENT VISIT EST Diagnosis: PAIN, LOWER BACK[ICD9: 724.2] Diagnosis: LUMBAR DISC DISPLACEMENT[ICD9: 722.10] María Elena MARIN LucioJj TD [facility] CPT-4: 23036 12/11/2011 OFFICE/OUTPATIENT VISIT EST Diagnosis: MIGRAINE NOS/NOT INTRCBL[ICD9: 346.90] Diagnosis: SINUSITIS, ACUTE[ICD9: 461.9] María Elena JUARES LucioJj SEAMUSYESIVICTORINO [facility] CPT-4: 40068 11/09/2011 OFFICE/OUTPATIENT VISIT EST Diagnosis: MIGRAINE NOS/NOT INTRCBL[ICD9: 346.90] Diagnosis: LYMPHADENOPATHY[ICD9: 785.6] María Elena Hicks TD [facility] CPT-4: 55972 09/13/2011 OFFICE/OUTPATIENT VISIT EST Diagnosis: MALAISE AND FATIGUE[ICD9: 780.79] Diagnosis: ARTHRALGIA-MULTIPLE SITES[ICD9: 719.49] María Elena REED LucioJj TD [facility] [employer] CPT-4: 47546 08/31/2011 OFFICE/OUTPATIENT VISIT EST Diagnosis: SINUSITIS, ACUTE[ICD9: 461.9] María Elena GODOYNDER DO [facility] CPT-4: 07874 07/20/2011 OFFICE/OUTPATIENT VISIT EST Diagnosis: HYPERTENSION[ICD9: 401.9] Diagnosis: PAIN, LOWER BACK[ICD9: 724.2] Diagnosis: SPASM OF MUSCLE[ICD9: 728.85] María Elena ORTAER [facility] CPT-4: 82852 07/06/2011 OFFICE/OUTPATIENT VISIT EST Diagnosis: MIGRAINE NOS/NOT INTRCBL[ICD9: 346.90] Diagnosis: HYPERTENSION[ICD9: 401.9] Marí aElena GODOY NDER DO [facility] CPT-4: 25278 05/22/2011 OFFICE/OUTPATIENT VISIT EST Diagnosis: SINUSITIS, ACUTE[ICD9: 461.9] Diagnosis: MIGRAINE NOS/NOT INTRCBL[ICD9: 346.90] Diagnosis: Dehydration[ICD9: 276.51] Diagnosis: Vomiting[ICD9: 787.03] María Elena ORTAE R DO [facility] CPT-4: 33241 05/09/2011 ([id number]) OFFICE/OUTPATIENT VISIT EST María Elena ISAAC UJARED S. [facility] CPT-4: 92998 02/14/2011 ([id number]) OFFICE/OUTPATIENT VISIT EST María Elena ISAAC UELINE S. [facility] CPT-4: 48918 02/03/2011 ([id number]) OFFICE/OUTPATIENT VISIT EST María Elena ISAAC UELINE S. [facility] CPT-4: 05265 01/31/2011 ([id number]) OFFICE/OUTPATIENT VISIT EST María Elena ISAAC UELINE [facility] CPT-4: 27744 01/25/2011 ([id number]) OFFICE/OUTPATIENT VISIT EST María Elena ISAAC UELINE [facility] CPT-4: 99856 01/18/2011 ([id number]) OFFICE/OUTPATIENT VISIT EST María Elena ISAAC UELINE [facility] CPT-4: 58225 11/29/2010 ([id number]) OFFICE/OUTPATIENT VISIT, EST María Elena [facility] CPT-4: 59985 10/10/2010 ([id number]) OFFICE/OUTPATIENT VISIT, EST María Elena MONTERO QUELINE [facility] CPT-4: 78604 06/07/2010 ([id number]) OFFICE/OUTPATIENT VISIT, EST María Elena MONTERO QU[facility]INE [facility] CPT-4: 69144 04/27/2010 ([id number]) OFFICE/OUTPATIENT VISIT, EST María Elena MONTERO [facility] CPT-4: 22916 04/05/2010 ([id number]) OFFICE/OUTPATIENT VISIT, EST Maraí Elena MONTERO [facility]INE [facility] CPT-4: 78125 03/09/2010 ([id number]) OFFICE/OUTPATIENT VISIT, EST María Elena BRAUNLINE [facility] CPT-4: 81655 03/03/2010 ([id number]) OFFICE/OUTPATIENT VISIT, EST María Elena MONTERO QU[facility]INE [facility] CPT-4: 52183 01/17/2010 ([id number]) PREV VISIT, EST, AGE 40-64 María Elena COLEMAN [facility] CPT-4: 93733 12/27/2009 Plan of Care Planned Activity Notes Codes Status Date Appointment: María Elena Appiah [facility]Ptel: [facility] [place] [facility]ED 11/26/2019 Visit Diagnosis Plan: Type 2 diabetes mellitus with hy perglycemia Discussion: Januvia 100mg daily Glimepride 2mg po BID Accuchecks BID Call in 2 weeks with BS readings Get formulary book ICD-9 : 250.02 ICD-10 : E11.65 11/20/2019 Appointment: María Elena Appiah WPtel: [phone] [facility] [place] FOLLOW UP 11/20/2019 Patient Education: glimepiride- OptimizeRX Coupon [id number] Completed 11/20/2019 Patient Education: Januvia- OptimizeDANIEL Coupon [id number] Completed 11/20/2019 Visit Diagnosis Plan: Ingrowing nail [...] ICD-10 : E11.65 10/07/2019 Appointment: Kathleen Zuniga [address] [place], [place] [id number] OFFICE SURGERY 10/07/2019 Visit Diagnosis [...] E11.65 09/30/2019 Appointment: María Elena Appiah WPtel: [address] [place], [place] [phone] [place] CHECK UP 09/30/2019 Patient Education: Premarin- [employer]imize[employer] Coupon [id number] [email or web address]/resources/getResource/[email or web address]-[email or web address] Completed 09/30/2019 Appointment: María Elena Appiah WPtel: [address] [place], [place] [phone] [place] LAB 09/29/2019 Appointment: María Elena Appiah WPtel: [address] [place], [place] [phone] [place] Won't have the new insurance till [...] W06.XXXS 05/28/2019 Appointment: María Elena Appiah WPtel: [address] [place], [place] [phone] [place] FOLLOW UP 05/28/2019 Appointment: María Elena Appiah WPtel: [address] [place], [place] [phone] [place] BP CHECK 05/19/2019 Visit Diagnosis Plan: [...] Z79.890 01/22/2019 Appointment: María Elena Appiah WPtel: [address] [place], [place] [address] [place] FOLLOW UP 01/22/2019 Patient Education: estradiol- [employer] Coupon [id number] [email or web address]/resources/getResource/[email or web address]/[email or web address] Completed 01/22/2019 Appointment: María Elena Appiah WPtel: [address] [place] [address] [place] CANCELED 01/20/2019 Appointment: María Elena Appiah WPtel: [address] [place] [address] US LM NO SHOW 01/06/2019 Appointment: María Elena Appiah WPtel: [address] [place] [address] US CANCELED 10/17/2018 Appointment: María Elena Appiah WPtel: [address] [place] [address] US BP CHECK 10/09/2018 Visit Diagnosis Plan: Type 2 diabetes mellitus with hy perglycemia Discussion: Patient still has not gotten lab done--will go today Check UA for microalbumin Follow Up: 3 months ICD-9 : 250.02 ICD-10 : E11.65 09/30/2018 Visit Diagnosis Plan: Essential (primary) hypertension Discussion: Continue current meds and monitor BP ICD-9 : 401.9 ICD-10 : I10 09/30/2018 Appointment: María Elena Appaih WPtel: [address] [place], [place] [address] US FOLLOW UP 09/30/2018 Visit Diagnosis Plan: [...] F51.01 08/27/2018 Appointment: María Elena Appiah WPtel: [address] [place] [address] ACUTE ILLNESS 08/27/2018 Appointment: María Elena Appiah WPtel: [address] [place] [address] [place] Patient stated she went out to [...] Tyle... 08/09/2018 Appointment: María Elena Appiah WPtel: [address] [place], [place] [phone] ACUTE ILLNESS 08/09/2018 Appointment: María Elena Appiah WPtel: [address] [place], [place] [phone] [place] NO SHOW 08/08/2018 Visit Diagnosis Plan: [...] B35.4 07/22/2018 Appointment: María Elena Appiah WPtel: [address] [place] [address] ACUTE ILLNESS 07/22/2018 Appointment: María Elena Appiah WPtel: [address] [place] [address] [place] INJECTION 06/19/2018 Patient Education: Patient Medication [...] ICD-10 : L03.031 06/17/2018 Appointment: Kathleen Zuniga [address] [place] [address] ACUTE ILLNESS 06/17/2018 Patient Education: Patient Medication [...] ICD-10 : B02.9 05/16/2018 Appointment: Kathleen Zuniga [address] [place] [address] ACUTE ILLNESS 05/16/2018 Patient Education: Patient Medication [...] ICD-10 : L03.115 03/20/2018 Appointment: Kathleen Zuniga [address] [place] [address] FOLLOW UP 03/20/2018 Patient Education: Patient Medication [...] : L03.115 03/18/2018 Appointment: Kathleen Zuniga [address] [place], [place] [address] FOLLOW UP 03/18/2018 Patient Education: Patient Medication [...] : L03.115 03/15/2018 Appointment: Kathleen Zuniga [address] [place], [place] [address] ACUTE ILLNESS 03/15/2018 Patient Education: Patient Medication [...] ICD-10 : J01.90 02/11/2018 Appointment: Kathleen Zuniga [address] [place] [address] ACUTE ILLNESS 02/11/2018 Patient Education: Patient Medication Summary Completed 02/11/2018 Appointment: María Elena Appiah WPtel: [phone] [facility] INJECTION 02/01/2018 Patient Education: Patient Medication [...] : M51.16 01/30/2018 Appointment: Kathleen Zuniga [address] [place], [place] [phone] ACUTE ILLNESS 01/30/2018 Patient Education: Patient Medication [...] E11.65 12/18/2017 Appointment: María Elena Appiah WPtel: [address] [place], [place] [phone] Annual Well Visit 12/18/2017 Patient Education: Patient Medication Summary Completed 12/18/2017 Care Plan: Referral Order SNOMED-CT : [id number] Pending 12/18/2017 Appointment: María Elena Appiah WPtel: [phone] [facility] [place] INJECTION 12/10/2017 Patient Education: Patient Medication [...] ICD-10 : L03.031 12/07/2017 Appointment: [facility]uniga [facility] ACUTE ILLNESS 12/07/2017 Patient Education: Patient Medication [...] : J01.00 10/08/2017 Appointment: Kathleen Zuniga [address] [facility] ACUTE ILLNESS 10/08/2017 Patient Education: Patient Medication Summary Completed 10/08/2017 Appointment: María Elena Appiah WPtel: [phone] [facility] INJECTION 09/21/2017 Patient Education: Patient Medication Summary [...] Kathleen Zuniga [address] [facility] ACUTE ILLNESS 09/20/2017 Patient Education: Patient Medication [...] ICD-10 : L60.0 08/29/2017 Appointment: Kathleen Zuniga [address] [place], [place] [phone] OFFICE SURGERY 08/29/2017 Patient Education: Patient Medication Summary Completed 08/29/2017 Visit Diagnosis Plan: Actinic keratosis Discussion: Cr yotherapy as above ICD-9 : 702.0 ICD-10 : L57.0 08/01/2017 Appointment: María Elena Appiah WPtel: [address] [place], [place] [phone] OFFICE SURGERY 08/01/2017 Patient Education: Patient Medication Summary Completed 08/01/2017 Appointment: María Elena Appiah WPtel: [facility] [place] [id number] PATIENT THOUGHT APPOINTMENT WAS TOMORROW 07/26/17 CALLED 15 MINUTES BEFORE APPT TO SAY SHE DIDN'T HAVE ANYONE TO COVER HER BUSINESS AND WOULD NOT MAKE IT NO SHOW 07/25/2017 Visit Diagnosis Plan: Cellulitis of left toe Discussio n: Clindamycin and notify if worsening or persistis ICD-9 : 681.10 ICD-10 : L03.032 07/19/2017 Appointment: María Elena Appiah WPtel: [address] [place], [place] [phone] MEDICATION REVIEW 07/19/2017 Patient Education: Patient Medication Summary Completed 07/19/2017 Appointment: María Elena Appiah WPtel: [facility] [place] [address] US CANCELED 07/04/2017 Visit Diagnosis Plan: Generalized hyperhidrosis Discus ian: CBC, CMP, TSH, free T4 ordered to assess. will review labs. ICD-9 : 780.8 ICD-10 : R61 06/27/2017 Visit Diagnosis Plan: Chronic sinusitis, unspecified D iscussion: Referral sent to dr. albarado in [place] per patient request. patient has been treated multiple times for sinus infections with no recovery. patient was seen by dr sanchez in the past with no interventions. patient has deviated septum which may be affecting her sinuses. 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, including hip Discussion: Shave removal of above lesio n--sent to pathology ICD-9 : 216.7 ICD-10 : D23.72 01/24/2017 Appointment: María Elena Appiah WPtel: [address] [place], [place] [phone] 01/23 confirmed ~sl OFFICE SURGERY 01/24/2017 Patient Education: Patient Medication Summary Completed 01/24/2017 Appointment: Loan Sánchez [address] [place] [address] 01/09 rescheduled~sl RESCHEDULED 01/15/2017 Visit Diagnosis Plan: [...] L81.4 12/13/2016 Appointment: María Elena Appiah WPtel: [address] [place], [place] [phone] 12/12 confirmed ~sl MEDICATION REVIEW 12/13/2016 Patient Education: Patient Medication Summary Completed 12/13/2016 Appointment: María Elena Appiah WPtel: [address] [place], [place] [phone] [place] rescheduled for 12/13/16 at 11am RESCHEDULED 0 12/06/2016 Appointment: María Elena Appiah WPtel: [address] [place] [phone] [place] CANCELED 11/23/2016 Patient Education: Patient Medication [...] 11/01/2016 Appointment: María Elena [facility] [phone] [id number] [place] 10/31 lm `sl 11/01 lm`sl MEDICATION REVIEW 017 Patient Education: Patient Medication Summary Completed 11/01/2016 Referral: Canelo Overton WPtel: [phone] [id number] [place] Referral Initiated 10/30/2016 Visit Diagnosis Plan: [...] 10/17/2016 Appointment: María Elena Appiah [facility]Ptel[facility] [phone] [id number] [place] 10/16 confirmed ~sl PAP 10/17/2016 Patient Education: Patient Medication Summary Completed 10/17/2016 Care Plan: MAMMOGRAM SCREENING LOINC : 2 6347-5 Pending 10/17/2016 Visit Diagnosis Plan: Other seasonal allergic rhinitis Discussion: Decadron/Garamycin Nasal Jasper Mix Too soon for steroid Retry zyrtec 10mg daily ICD-9 : 477.9 ICD-10 : J30.2 10/10/2016 Appointment: María Elena Appiah WPtel: [address] [place], [place] [phone] FOLLOW UP 10/10/2016 Patient Education: Patient Medication Summary Completed 10/10/2016 Appointment: María Elena Appiah WPtel: [address] [place] [id number] 10/02 reschedule `sl RESCHEDULED 10/02/2016 Visit Plan: See surgery for removal of n ew left arm lesion and right foot lesion Lyrica to use next month for left arm paresthesias Continue current meds Discussed sunscreen/sunblock combo 09/19/2016 Appointment: María Elena Appiah WPtel: [address] [place], [place] [phone] 09/18 confirmed ~sl FOLLOW UP 09/19/2016 Patient Education: Patient Medication Summary Completed 09/19/2016 Patient Education: Patient Medication Summary Completed 09/18/2016 Care Plan: MAMMOGRAM BOTH BREASTS LOINC : 14465-1 Pending 09/18/2016 Visit Plan: Discussed that needs [...] sinuses 08/24/2016 Appointment: María Elena Appiah WPtel: [address] [place], [place] [phone] ACUTE ILLNESS 08/24/2016 Patient Education: Patient Medication Summary Completed 08/24/2016 Patient Education: Patient Medication Summary Completed 08/23/2016 Care Plan: MAMMOGRAM SCREENING LOINC : 2 6347-5 Pending 08/23/2016 Visit Plan: Finish doxycycline Add Breo 100/25 1 p BID for 2 weeks If not improving within next 2 days will get CXR 08/16/2016 Appointment: María Elena Appiah WPtel: [address] [place] [address] ACUTE ILLNESS 08/16/2016 Patient Education: Patient Medication Summary Completed 08/16/2016 Visit Plan: Supportive care. Rest, Fluid s, Tylenol/Motrin prn fever or bodyaches. Notify if worsening symptoms. Doxycyline and Prednisone 08/10/2016 Appointment: María Elena Appiah WPtel: [address] [place] [address] 08/09 lm`sl....confirmed-sp FOLLOW UP 09/2015 Patient Education: Patient Medication Summary Completed 08/10/2016 Visit Plan: Saline nasal flushes prn. Ty lenol/Motrin prn headache. Notify if persists/symptoms worsening. Dexamethasone 8mg IM today May use coricedan and mucinex 08/02/2016 Appointment: María Elena Appiah WPtel: [address] [place] [address] ACUTE ILLNESS 08/02/2016 Patient Education: Patient Medication Summary Completed 08/02/2016 Visit Plan: Cryotherapy as above and lef t forearm lesion removal as above with 5-0 punch biopsy and sent to path Return in 10 days for suture removal 08/01/2016 Appointment: María Elena Appiah WPtel: [address] [place] [address] 07/31 confirmed`~sl OFFICE SURGERY 08/01/2016 Patient Education: Patient Medication Summary Completed 08/01/2016 Visit Plan: Stop clindamycin Check CBC, CMP, ESR now/STAT 07/27/2016 Appointment: María Elena Appiah WPtel: [address] [place] [address] ACUTE ILLNESS 07/27/2016 Patient Education: Patient Medication Summary Completed 07/27/2016 Visit Plan: Update lab and check ABIs to start with Will likely need cardiology evaluation to rule out PVD Clindamycin for 10 days Daily yogurt or probiotic Will return for removal of left arm lesions 07/20/2016 Appointment: María Elena Appiah WPtel: [address] [place], [place] [address] [place] ACUTE ILLNESS 07/20/2016 Patient Education: Patient Medication Summary Completed 07/20/2016 Patient Education: Patient Medication Summary Completed 07/20/2016 Care Plan: MAMMOGRAM BOTH BREASTS LOINC : 67439-6 Pending 07/20/2016 Care Plan: US EXAM CHEST LOINC : 66987-9 Pending 07/20/2016 Visit Plan: Wound culture collected from left great toe Appearance is somewhat staph like Rx as above Wound cleanser and skin care reviewed May need to add oral antibiotic if sores do not heal or continue to reoccur 07/06/2016 Appointment: Loan Sánchez [address] [place] [address] ACUTE ILLNESS 07/06/2016 Patient Education: Patient Medication Summary Completed 07/06/2016 Appointment: María Elena Appiah WPtel: [address] [place] [address] [place] INJECTION 05/25/2016 Patient Education: Patient Medication Summary Completed 05/25/2016 Visit Plan: Saline nasal flushes prn. Ty lenol/Motrin prn headache. Notify if persists/symptoms worsening. Dexamethasone and Rocephin given 04/26/2016 Appointment: María Elena Appiah WPtel: [address] [place] [address] ACUTE ILLNESS 04/26/2016 Patient Education: Patient Medication Summary Completed 04/26/2016 Visit Plan: Check CBC, CMP, TSH, FreeT4, HbA1C, estradiol, lipids in AM 03/02/2016 Appointment: María Elena Appiah WPtel: [address] [place] [address] 03/01 lm~sl ACUTE ILLNESS 03/02/2016 Patient Education: Patient Medication Summary Completed 03/02/2016 Visit Plan: Exam is nearly normal Needs to be taking daily antihistamine Would prefer to use oral steroids instead of shot but patient insist that oral steroids cause horrible headaches for her Will given kenalog IM instead 02/09/2016 Appointment: Loan Sánchez [address] [place] [address] ACUTE ILLNESS 02/09/2016 Patient Education: Patient Medication Summary Completed 02/09/2016 Visit Plan: Culture urine Macrobid DC xa nax Trial of Ativan 1mg q HS 01/24/2016 Appointment: María Elena pApiah WPtel: [address] [place] [address] ACUTE ILLNESS 01/24/2016 Patient Education: Patient Medication Summary Completed 01/24/2016 Visit Plan: No steroid or rocephin injec tion warranted Can have oral prednisone Continue current home regimen Needs to follow up with Dr Sanchez if problems persist 12/23/2015 Appointment: Loan Sánchez [address] [place] [address] ACUTE ILLNESS 12/23/2015 Patient Education: Patient Medication Summary Completed 12/23/2015 Visit Plan: Saline nasal flushes prn. Ty lenol/Motrin prn headache. Notify if persists/symptoms worsening. Kenalog 40mg IM today 12/08/2015 Appointment: María Elena Appiah WPtel: [address] [place] [address] 12/06 confirmed~ ACUTE ILLNESS 12/08/2015 Patient Education: Patient Medication Summary Completed 12/08/2015 Appointment: María Elena Appiah WPtel: [address] [place] [address] ACUTE ILLNESS 11/18/2015 Patient Education: Patient Medication Summary Completed 10/11/2015 Appointment: María Elena Appiah WPtel: [address] [place] [address] [place] INJECTION 10/07/2015 Patient Education: Patient Medication Summary Completed 10/07/2015 Visit Plan: Check renal arterial doppler s and ECHO Change amlodopine to lotrel 5/20mg q HS Will need stress test as well Check CMP, uric acid, ESR 10/06/2015 Appointment: María Elena Appiah WPtel: [address] [place] [address] ACUTE ILLNESS 10/06/2015 Patient Education: Patient Medication Summary Completed 10/06/2015 Patient Education: [facility] - [employer] - Amlodipine Besylate - 18-64 - Dynamic Portal ID Completed 10/06/2015 Appointment: María Elena Appiah WPtel: [address] [place] [phone] [place] FOLLOW UP 09/22/2015 Visit Plan: Cephalexin 500 mg PO bid Mery ly topical Mupirocin to lesions on left lateral neck and face Follow-up in one week. Sooner if symptoms worsen 09/14/2015 Appointment: June Flores WPtel: [address] [place], [place] [id number] ACUTE ILLNESS 09/14/2015 Patient Education: Patient Medication Summary Completed 09/14/2015 Visit Plan: Change bystolic to bedtime d osing and amlodopine to morning dosing Cryotherapy as above to AKs 09/07/2015 Appointment: María Elena Appiah WPtel: [address] [place] [address] 09/06 appointment made and confirmed ~ FOLLOW UP 09/07/2015 Patient Education: Patient Medication Summary Completed 09/07/2015 Visit Plan: Increase bystolic back to 20 mg daily but will split and take 10mg in AM and 10mg in PM Stress Reducers 08/18/2015 Appointment: María Elena Appiah WPtel: [address] [place], [place] [phone] 08/17/15 appt confirmed cn ACUTE ILLNESS 08/18 Patient Education: Patient Medication Summary Completed 08/18/2015 Appointment: María Elena Appiah WPtel: [address] [place], [place] [phone] BP CHECK 07/07/2015 Patient Education: Patient Medication Summary Completed 07/07/2015 Appointment: María Elena Appiah WPtel: [address] [place] [address] BP CHECK 06/24/2015 Patient Education: Patient Medication Summary Completed 06/24/2015 Appointment: María Elena Appiah WPtel: [address] [place] [address] BP CHECK 06/21/2015 Patient Education: Patient Medication Summary Completed 06/21/2015 Visit Plan: Lab discussed Continue curre nt meds and lifestyle modification Recheck lab in 6mos 06/16/2015 Appointment: María Elena Appiahtel: [address] [place] [address] 06/15 confirmed FOLLOW UP 06/16/2015 Patient Education: Patient Medication Summary Completed 06/16/2015 Patient Education: Patient Medication Summary Completed 06/15/2015 Visit Plan: Increase cymbalta to 60mg q HS Keep clonidine at current dose Recheck 2weeks Change xanax to klonopin 06/02/2015 Appointment: María Elena Appiah WPtel: [address] [place] [address] 06/02 lm FOLLOW UP 06/02/2015 Patient Education: Patient Medication Summary Completed 06/02/2015 Appointment: María Elena Appiah WPtel: [address] [place] [address] ACUTE ILLNESS 05/24/2015 Visit Plan: Increase clonidine to 0.2mg q HS Add cymbalta 30mg q HS Recheck 2weeks Stress Reducers Check fasting lab Discussed sleep study 05/20/2015 Appointment: María Elena Appiah WPtel: [address] [place] [address] ACUTE ILLNESS 05/20/2015 Patient Education: Patient Medication Summary Completed 05/20/2015 Patient Education: [facility] - [employer] - Cymbalta - 18-64 - Dynamic Portal ID Completed 05/20/2015 Appointment: María Elena Appiah WPtel: [address] [place] [address] BP CHECK 05/19/2015 Patient Education: Patient Medication Summary Completed 05/19/2015 Visit Plan: Topical Bactroban alternatin g with topical betamethasone Recheck 2weeks 05/10/2015 Appointment: María Elena Appiah WPtel: [address] [place] [address] 05/07 vm cn...05/07 appt confirmed OFFICE SURGER Y 05/10/2015 Patient Education: Patient Medication Summary Completed 05/10/2015 Referral: Patrick Chandler WPtel: [address] [id number] [place] Referral Initiated 05/04/2015 Visit Plan: Saline nasal flushes prn. Ty lenol/Motrin prn headache. Notify if persists/symptoms worsening. Depomedrol 40mg IM today 03/16/2015 Appointment: María Elena Appiah WPtel: [address] [place] [address] ACUTE ILLNESS 03/16/2015 Patient Education: Patient Medication Summary Completed 03/16/2015 Appointment: María Elena Appiah WPtel: [address] [place] [address] ER Follow UP 03/09/2015 Visit Plan: Cryotherapy to lesions as ab ove 10/27/2014 Appointment: María Elena Appiah WPtel: [address] [place] [address] OFFICE SURGERY 10/27/2014 Patient Education: Patient Medication Summary Completed 10/27/2014 Appointment: June Flores WPtel: [address] [place], [place] [phone] ACUTE ILLNESS 09/11/2014 Patient Education: Patient Medication Summary Completed 09/11/2014 Visit Plan: Lab discussed Lipitor 10mg d aily Coenzyme Q-10 400mg daily Vitamin D3 5000u daily Recheck lipids with LFTs in 3mos then fwup 08/31/2014 Appointment: María Elena Appiah WPtel: [address] [place] [address] 08/28 voicemail FOLLOW UP 08/31/2014 Patient Education: Patient Medication Summary Completed 08/31/2014 Appointment: María Elena Appiah WPtel: [address] [place], [place] [phone] [place] LAB 08/27/2014 Appointment: María Elena Appiah WPtel: [address] [place] [phone] [place] LAB 08/27/2014 Patient Education: Patient Medication Summary Completed 08/27/2014 Appointment: María Elena Appiah WPtel: [address] [place], [place] [phone] ACUTE ILLNESS 07/23/2014 Appointment: María Elena Appiah WPtel: [address] [place] [address] ACUTE ILLNESS 07/21/2014 Patient Education: Patient Medication Summary Completed 07/21/2014 Visit Plan: Kenalog 40mg IM today Contin ue narendra and singulair Add Flonase 07/15/2014 Appointment: María Elena Appiah WPtel: [address] [place] [address] ACUTE ILLNESS 07/15/2014 Appointment: María Elena Appiah WPtel: [address] [place] [address] ACUTE ILLNESS 07/15/2014 Patient Education: Patient Medication Summary Completed 07/15/2014 Visit Plan: Will do metolazone 2.5mg prn with 6 potassium and see if causes as severe cramping Trial of of seroquel XR 50mg q PM with evening meal and let us know how works 05/18/2014 Appointment: María Elena Appiah WPtel: [address] [place], [place] [phone] 05/15 left message FOLLOW UP 05/18/2014 Patient Education: Patient Medication Summary Completed 05/18/2014 Appointment: María Elena Appiah WPtel: [address] [place] [phone] [place] LAB 05/14/2014 Patient Education: Patient Medication Summary Completed 05/14/2014 Appointment: María Elena Appiah WPtel: [address] [place] [phone] [place] INJECTION 04/22/2014 Visit Plan: Kimo and Miranda today a nd finish abx given from urgent care 04/21/2014 Appointment: María Elena Appiah WPtel: [address] [place] [address] [place] INJECTION 04/21/2014 Patient Education: Patient Medication Summary Completed 04/21/2014 Appointment: June Flores WPtel: [address] [place] [address] ACUTE ILLNESS 03/04/2014 Patient Education: Patient Medication Summary Completed 03/04/2014 Appointment: María Elena Appiah WPtel: [address] [place] [address] INJECTION 02/27/2014 Patient Education: Patient Medication Summary Completed 02/27/2014 Visit Plan: Cryotherapy as above to all lesions Patient wants to try no meds for insomnia for a while and see how goes 01/13/2014 Appointment: María Elena Appiah WPtel: [address] [place] [address] OFFICE SURGERY 01/13/2014 Patient Education: Patient Medication Summary Completed 01/13/2014 Visit Plan: Stop Melatonin Stop Soma Tri al of trazadone 75mg q HS See ENT for possible tubes as has had chronic ETD and serous otitis media with numerous steroids 12/24/2013 Appointment: María Elena Appiah WPtel: [address] [place] [address] ACUTE ILLNESS 12/24/2013 Patient Education: Patient Medication Summary Completed 12/24/2013 Visit Plan: Saline nasal flushes prn. Ty lenol/Motrin prn headache. Notify if persists/symptoms worsening. 11/12/2013 Appointment: María Elena Appiah WPtel: [address] [place] [address] ACUTE ILLNESS 11/12/2013 Patient Education: Patient Medication Summary Completed 11/12/2013 Appointment: María Elena Appiah WPtel: [address] [place] [phone] ACUTE ILLNESS 10/21/2013 Patient Education: Patient Medication Summary Completed 10/21/2013 Visit Plan: Sleep hygiene and sleep rout ine Melatonin 10mg q HS Support stockings and observe 09/22/2013 Appointment: María Elena Appiah WPtel: [address] [place], [place] [phone] ACUTE ILLNESS 09/22/2013 Patient Education: Patient Medication Summary Completed 09/22/2013 Appointment: June Flores WPtel: [address] [place], [place] [phone] ACUTE ILLNESS 08/27/2013 Patient Education: Patient Medication Summary Completed 08/27/2013 Visit Plan: Proceed with CT scan of head /neck Proceed with occipital nerve injections Butrans 20mcg patch weekly until can get into see Dr. Mcdonough for injections 08/04/2013 Appointment: María Elena Appiah WPtel: [address] [place] [address] FOLLOW UP 08/04/2013 Patient Education: Patient Medication Summary Completed 08/04/2013 Visit Plan: OMT done Daily neck stretche s, moist heat Increase Celebrex to 200mg BID Add flexeril 07/23/2013 Appointment: María Elena Appiah WPtel: [address] [place], [place] [phone] 07/22 voicemail FOLLOW UP 07/23/2013 Patient Education: Patient Medication Summary Completed 07/23/2013 Appointment: María Elena Appiah WPtel: [address] [place], [place] [phone] ACUTE ILLNESS 06/23/2013 Patient Education: Patient Medication Summary Completed 06/23/2013 Appointment: María Elena Appiah WPtel: [address] [place] [address] ACUTE ILLNESS 05/26/2013 Patient Education: Patient Medication Summary Completed 05/26/2013 Visit Plan: Decrease clonidine to 0.1mg TID If BP remains stable consider decreasing amlodopine Prednisone for 5 days BP check in 1mo 04/16/2013 Appointment: María Elena Appiah WPtel: [address] [place] [address] 04/14 pt called and confirmed appt FOLLOW UP 04/16/2013 Patient Education: Patient Medication Summary Completed 04/16/2013 Appointment: María Elena Appiah WPtel: [address] [place] [address] ACUTE ILLNESS 03/05/2013 Patient Education: Patient Medication Summary Completed 03/05/2013 Visit Plan: Pt has MARIA ELENA on with Dr. Mcdonough Continue Butrans patch Refill Hydrocodone early tomorrow 12/23/2012 Appointment: María Elena Appiah WPtel: [address] [place] [address] FOLLOW UP 12/23/2012 Patient Education: Patient Medication Summary Completed 12/23/2012 Appointment: Lashawn Eckert WPtel: [address] [place] [address] ACUTE ILLNESS 12/16/2012 Patient Education: Patient Medication Summary Completed 12/16/2012 Visit Plan: Proceed with updated MRI of LS spine Continue gabapentin and add soma and diclofenac Will likely need to go for another epidural 12/09/2012 Appointment: María Elena Appiah WPtel: [address] [place] [address] ACUTE ILLNESS 12/09/2012 Patient Education: Patient Medication Summary Completed 12/09/2012 Visit Plan: Injection as above Finish me drol dose pack Chiropracter this afternoon 12/04/2012 Appointment: María Elena Appiah WPtel: [address] [place] [address] ACUTE ILLNESS 12/04/2012 Patient Education: Patient Medication Summary Completed 12/04/2012 Appointment: Mary Tillman WPtel: [address] [place] [address] FOLLOW UP 11/22/2012 Patient Education: Patient Medication Summary Completed 11/22/2012 Appointment: María Elena Appiah WPtel: [address] [place] [address] ACUTE ILLNESS 11/21/2012 Patient Education: Patient Medication Summary Completed 11/21/2012 Appointment: María Elena Appiah WPtel: [address] [place] [address] [place] BP CHECK 11/07/2012 Patient Education: Patient [...] BP re-check. 10/29/2012 Appointment: Lashawn Eckert WPtel: [address] [place] [address] ACUTE ILLNESS 10/29/2012 Patient Education: Patient Medication Summary Completed 10/29/2012 Appointment: María Elena Appiah WPtel: [address] [place] [address] ACUTE ILLNESS 10/14/2012 Patient Education: Patient Medication Summary Completed 10/14/2012 Appointment: María Elena Appiah WPtel: [address] [place] [address] UA 09/27/2012 Patient Education: Patient Medication Summary Completed 09/27/2012 Appointment: María Elena Appiah WPtel: [address] [place] [address] ACUTE ILLNESS 09/25/2012 Patient Education: Patient Medication Summary Completed 09/25/2012 Appointment: María Elena Appiah WPtel: [address] [place] [address] BP CHECK 09/24/2012 Appointment: María Elena Appiah WPtel: [address] [place] [phone] ACUTE ILLNESS 08/29/2012 Patient Education: Patient Medication Summary Completed 08/29/2012 Visit Plan: Cryotherapy as above See Karlos m for right ear lesion--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 ACUTE ILLNESS 05/06/2012 Patient Education: Patient Medication Summary Completed 05/06/2012 Visit Plan: Pt wants to hold on any furt her sleep medications 04/03/2012 Appointment: María Elena Appiah WPtel: [address] [place], [place] [phone] FOLLOW UP 04/03/2012 Patient Education: Patient Medication Summary Completed 04/03/2012 Appointment: María Elena Appiah WPtel: [address] [place] [phone] FOLLOW UP 03/19/2012 Patient Education: Patient Medication Summary Completed 03/19/2012 Appointment: María Elena Appiah WPtel: [address] [place] [phone] BP CHECK 02/22/2012 Patient Education: Patient Medication Summary Completed 02/22/2012 Appointment: María Elena Appiah WPtel: [address] [place] [phone] BP CHECK 02/21/2012 Patient Education: Patient Medication Summary Completed 02/21/2012 Visit Plan: Doxycycline and bactroban fo r foot Supportive care on ankles and knees Add norvasc for BP 02/20/2012 Appointment: María Elena Appiah WPtel: [address] [place] [address] ER Follow UP 02/20/2012 Patient Education: Patient Medication Summary Completed 02/20/2012 Appointment: María Elena Appiah WPtel: [address] [place] [address] ACUTE ILLNESS 01/30/2012 Patient Education: Patient Medication Summary Completed 01/30/2012 Appointment: María Elena Appiah WPtel: [address] [place] [address] ACUTE ILLNESS 01/24/2012 Patient Education: Patient Medication Summary Completed 01/24/2012 Visit Plan: Daily back stretches, moist heat, Biofreeze prn OMT done 01/10/2012 Appointment: María Elena Appiah WPtel: [address] [place] [address] ACUTE ILLNESS 01/10/2012 Patient Education: Patient Medication Summary Completed 01/10/2012 Appointment: María Elena Appiah WPtel: [address] [place] [address] FOLLOW UP 12/11/2011 Patient Education: Patient Medication Summary Completed 12/11/2011 Appointment: María Elena Appiah WPtel: [address] [place] [address] ACUTE ILLNESS 11/09/2011 Patient Education: Patient Medication Summary Completed 11/09/2011 Appointment: María Elena Appiah WPtel: [address] [place] [address] ACUTE ILLNESS 09/13/2011 Patient Education: Patient Medication Summary Completed 09/13/2011 Visit Plan: Check CBC, TSH, Free T4, CMP , ESR, Vit D, B12 now Start Prednisone today 08/31/2011 Appointment: María Elena Appiah WPtel: [address] [place] [address] ACUTE ILLNESS 08/31/2011 Patient Education: Patient Medication Summary Completed 08/31/2011 Appointment: María Elena Appiahtel: [address] [place] [phone] [place] INJECTION 07/20/2011 Patient Education: Patient Medication Summary Completed 07/20/2011 Visit Plan: Continue current meds Monite r BP Cont stretches from PT 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 07/06/2011 Appointment: María Elena Appiah WPtel: [address] [place] [address] [place] FOLLOW UP 07/06/2011 Patient Education: Patient Medication Summary Completed 07/06/2011 Appointment: María Elena Appiahtel: [address] [place] [address] [place] BP CHECK 06/06/2011 Patient Education: Patient Medication Summary Completed 06/06/2011 Visit Plan: Add Bystolic at 2.5mg QAM Ad d Robaxin 750mg 2 po q HS BP check in 2wks 05/22/2011 Appointment: María Elena Appiahtel: [address] [place] [address] FOLLOW UP 05/22/2011 Patient Education: Patient Medication Summary Completed 05/22/2011 Appointment: María Elena Appiahtel: [address] [place], [place] [id number] ER Follow UP 05/09/2011 Patient Education: Patient Medication Summary Completed 05/09/2011 Appointment: María Elena Appiahtel: [address] [place], [place] [id number] [place] FOLLOW UP 02/22/2011 Visit Plan: Rx written for Hydrocodone 1 0/325mg #240 See Ortho 02/14/2011 Appointment: María Elena Appiahtel: [address] [place], [place] [id number] OMT 02/14/2011 Patient Education: Patient Medication Summary [...] lab work. 02/03/2011 Appointment: Lashawn Eckert WPtel: [address] [place] [address] ACUTE ILLNESS 02/03/2011 Patient Education: Patient Medication Summary Completed 02/03/2011 Visit Plan: OMT done Cont daily stretche s 01/31/2011 Appointment: María Elena Appiah WPtel: [address] [place] [address] ACUTE ILLNESS 01/31/2011 Patient Education: Patient Medication Summary Completed 01/31/2011 Visit Plan: Continue pain meds OMT done Proceed with PT No work this summer01/25/2011 Appointment: María Elena Appiah WPtel: [address] [place] [address] ACUTE ILLNESS 01/25/2011 Patient Education: Patient Medication Summary Completed 01/25/2011 Visit Plan: Start PT Long discussion abo ut getting pain meds from only us and can only have max of 4grams of tylenol per day Change to Hydrocodone 10/325mg 1- 2 po TID prn pain--#180 called to Radha 01/18/2011 Appointment: María Elena Appiah WPtel: [address] [place] [address] FOLLOW UP 01/18/2011 Patient Education: Patient Medication Summary Completed 01/18/2011 Visit Plan: Daily back stretches, moist heat, Biofreeze prn 11/29/2010 Appointment: María Elena Appiah WPtel: [address] [place] [address] ER Follow UP 11/29/2010 Patient Education: Patient Medication Summary Completed 11/29/2010 Visit Plan: Saline nasal flushes prn. Ty lenol/Motrin prn headache. Notify if persists/symptoms worsening. Finish augmentin Add Medrol Dose Pack 10/10/2010 Appointment: María Elena Appiah WPtel: [address] [place] [address] ACUTE ILLNESS 10/10/2010 Patient Education: Patient Medication Summary Completed 10/10/2010 Visit Plan: Cryotherapy x3 to multiple l esions on both forearms 07/19/2010 Appointment: María Elena Appiah WPtel: [address] [place] [address] OFFICE SURGERY 07/19/2010 Patient Education: Patient Medication Summary Completed 07/19/2010 Appointment: María Elena Appiahtel: [address] [place] [address] BP CHECK 07/06/2010 Patient Education: Patient Medication Summary Completed 07/06/2010 Appointment: María Elena Appiahtel: [address] [place] [address] BP CHECK 06/30/2010 Patient Education: Patient Medication Summary Completed 06/30/2010 Appointment: María Elena Appiahtel: [address] [place] [address] BP CHECK 06/20/2010 Patient Education: Patient Medication Summary Completed 06/20/2010 Visit Plan: Change Diovan to Exforge 160 /5mg QD OMT done to thoracics BP check in 2wks 06/07/2010 Appointment: María Elena Appiah WPtel: [address] [place] [address] [place] FOLLOW UP 06/07/2010 Patient Education: Patient Medication Summary Completed 06/07/2010 Appointment: María Elena Appiah WPtel: [address] [place] [address] BP CHECK 06/03/2010 Patient Education: Patient Medication Summary Completed 06/03/2010 Appointment: María Elena Appiah WPtel: [address] [place] [address] BP CHECK 06/01/2010 Patient Education: Patient Medication Summary Completed 06/01/2010 Visit Plan: Irritated skin tags to left neck x2 excised at base with scissors and base cauterized 05/30/2010 Appointment: María Elena Appiah WPtel: [address] [place] [address] OFFICE SURGERY 05/30/2010 Patient Education: Patient Medication Summary Completed 05/30/2010 Visit Plan: Saline nasal flushes prn. Ty lenol/Motrin prn headache. Notify if persists/symptoms worsening. Restart Nasonex Has allergy testing set for May 25 04/27/2010 Appointment: María Elena Appiah WPtel: [address] [place] [address] ACUTE ILLNESS 04/27/2010 Patient Education: Patient Medication Summary Completed 04/27/2010 Visit Plan: Saline nasal flushes prn. Ty lenol/Motrin prn headache. Notify if persists/symptoms worsening. Omnaris BID plus injections 04/05/2010 Appointment: María Elena Appiah WPtel: [address] [place] [address] ACUTE ILLNESS 04/05/2010 Patient Education: Patient Medication Summary Completed 04/05/2010 Visit Plan: Saline nasal flushes prn. Ty lenol/Motrin prn headache. Notify if persists/symptoms worsening. 03/09/2010 Appointment: María Elena Appiah WPtel: [address] [place] [address] ACUTE ILLNESS 03/09/2010 Patient Education: Patient Medication Summary Completed 03/09/2010 Visit Plan: Cont Clonidine as is Cont Pr emarin Fwup with surgery as scheduled 03/03/2010 Appointment: María Elena Appiah WPtel: [address] [place], [place] [phone] FOLLOW UP 03/03/2010 Patient Education: Patient Medication Summary Completed 03/03/2010 Visit Plan: Check Pelvic US now Discusse tacho Sal C vs Hysterectomy 01/17/2010 Appointment: María Elena Appiah WPtel: [address] [place], [place] [phone] ACUTE ILLNESS 01/17/2010 Patient Education: Patient Medication Summary Completed 01/17/2010 Visit Plan: Check fasting lab and schedu le Mammogram 2gm Na Diet Trial of Ambien 10mg qhs Fwup pending lab results 12/27/2009 Appointment: María Elena Appiah WPtel: [address] [place], [place] [phone] ESTABLISHED PATIENT 12/27/2009 Patient Education: Patient Medication Summary Completed 12/27/2009 Referral: Canelo Overton WPtel: [address] [id number] [place] Referral Initiated Referral: Philipp Flores WPtel: [address] [id number] [place] Referral Appointment Requested Instructions Comment . [...]
--- OUTSIDE RECORDS SUMMARY | 2020-03-13 05:16 | XMS REPORT | CCD ---
Author Author Gale Appiah D.O. Organization [facility] Address [address] [place] [phone] Phone Care Team Providers Care Intake Counselor Name Role Phone María Elena Appiah D.O., PP Unavailable CCM Unavailable Summary Purpose Interface Exchange Insurance Providers Payer name Policy type / Coverage type Covered libertarian ID Effective Begin Date Effective End Date [facility] Commercial Insurance [id number] Unknown Family History Family History data not found Social History Social History Element Codes Description Effective Dates Tobacco history SNOMED CT: [id number] Never smoker 05/22/2011 Allergies, Adverse Reactions, Alerts [...] Start Date Stop Date Status Fill Instructions allopurinol 300 mg tablet RxNorm: 151367 TAKE ONE TABLET BY LOPEZ TH DAILY 12/19/2019 No Stop Date Active hydrocodone 10 mg-acetaminophen 325 mg tablet RxNorm: 495382 1-2 Tablet(s) Oral three times a day as needed for pain 12/10/2019 No Stop Date Active Januvia 100 mg tablet RxNorm: 586818 1 Tablet(s) Oral QD 11/20/2019 0 11/20/2019 Inactive glimepiride 2 mg tablet RxNorm: 689073 1 Tablet(s) Oral two sawyer es a day 11/20/2019 12/20/2019 Active cyclobenzaprine 10 mg tablet RxNorm: 759929 TAKE ONE TA BLET BY MOUTH THREE TIMES A DAY NEEDED FOR MUSCLE SPASMS 11/17/2019 No Stop Date Active doxepin 25 mg capsule RxNorm: 2838985 TAKE ONE CAPSULE B Y MOUTH EVERY NIGHT AT BEDTIME NEEDED FOR SLEEP 11/16/2019 No Stop Date Active Klor-Con 8 mEq tablet,extended release RxNorm: 155880 T FARRUKH ONE TABLET BY MOUTH TWICE A DAY 11/16/2019 No Stop Date Active hydrocodone 10 mg-acetaminophen 325 mg tablet RxNorm: 304072 1-2 Tablet(s) Oral three times a day as needed for pain 11/10/2019 12/09/2019 Inactive cyclobenzaprine 10 mg tablet RxNorm: 552485 TAKE ONE TA BLET BY MOUTH THREE TIMES A DAY NEEDED FOR MUSCLE SPASMS 10/23/2019 11/16/2019 Inactive duloxetine 60 mg capsule,delayed release RxNorm: 314242 1 Capsu le(s) Oral QD 10/17/2019 04/13/2020 Active celecoxib 200 mg capsule RxNorm: 522560 1 Capsule(s) Or al two times a day as needed for pain 10/17/2019 01/14/2020 Active lisinopril 20 mg tablet RxNorm: 285969 1 Tablet(s) Oral QD 10/17/19 20 04/13/2020 Active gabapentin 300 mg capsule RxNorm: 255700 1 Capsule(s) O ral every night at bedtime 10/17/2019 01/15/2020 Active Singulair 10 mg tablet RxNorm: 318174 1 Tablet(s) Oral QD 10/17/2019 04/14/2020 Active metoprolol tartrate 100 mg tablet RxNorm: 554946 1 Tabl et(s) Oral two times a day 10/17/2019 04/13/2020 Active clonidine HCl 0.1 mg tablet RxNorm: 777079 1 Tablet(s) Oral fou r times a day 10/17/2019 04/13/2020 Active Januvia 100 mg tablet RxNorm: 429982 1 Tablet(s) Oral QD 10/17/2019 No Stop Date Active Lipitor 10 mg tablet RxNorm: 605138 1 Tablet(s) Oral QD 10/17/2019 Active Steglatro 15 mg tablet RxNorm: 5034835 1 Tablet(s) Oral QD 10/17/19 No Stop Date Active Klor-Con 8 mEq tablet,extended release RxNorm: 026754 1 Tablet(s) Oral two times a day 10/17/2019 11/15/2019 Inactive Glyxambi 25 mg-5 mg tablet RxNorm: 8887780 1 Tablet(s) Oral QD 01/202010/16/2019 Inactive Patient will bring in copay discount card as well Glyxambi 25 mg-5 mg tablet RxNorm: 5403092 1 Tablet(s) Oral QD 01/202010/14/2019 Inactive Patient will bring in copay discount card as well Keflex 500 mg capsule RxNorm: 963399 1 Capsule(s) Oral two time s a day 10/07/2019 10/14/2019 Inactive Premarin 1.25 mg tablet RxNorm: 961507 1 Tablet(s) Oral QD 09/30/1906/25/2020 Active hydrocodone 10 mg-acetaminophen 325 mg tablet RxNorm: 980275 1-2 Tablet(s) Oral three times a day as needed for pain 09/30/2019 09/30/2019 Inactive baclofen 10 mg tablet RxNorm: 666673 TAKE ONE TABLET BY MOUTH THREE TIMES A DAY NEEDED 09/19/2019 No Stop Date Active gabapentin 300 mg capsule RxNorm: 873848 TAKE ONE CAPSU LE BY MOUTH EVERY NIGHT AT BEDTIME 09/19/2019 10/16/2019 Inactive Klor-Con 8 mEq tablet,extended release RxNorm: 060131 T FARRUKH ONE TABLET BY MOUTH TWICE A DAY 1 Tablet(s) Oral two times a day 09/19/2019 10/16/2019 Renu ctive hydrocodone 10 mg-acetaminophen 325 mg tablet RxNorm: 010584 1-2 Tablet(s) Oral three times a day as needed for pain 09/19/2019 09/29/2019 Inactive triamterene 75 mg-hydrochlorothiazide 50 mg tablet RxNorm: 3 15459 TAKE ONE TABLET BY MOUTH DAILY 09/11/2019 No Stop Date Active duloxetine 60 mg capsule,delayed release RxNorm: 946043 TAKE ONE CAPSULE BY MOUTH DAILY 09/11/2019 10/16/2019 Inactive Lipitor 10 mg tablet RxNorm: 044929 TAKE ONE TABLET BY MOUTH AT BEDTIME 09/11/2019 10/16/2019 Inactive lisinopril 20 mg tablet RxNorm: 654748 TAKE ONE TABLET BY MOUTH DAILY .... THIS REPLACE 10MG TABLETS 09/11/2019 10/16/2019 Inactive allopurinol 300 mg tablet RxNorm: 197880 TAKE ONE TABLET BY LOPEZ TH DAILY 09/11/2019 12/18/2019 Inactive celecoxib 200 mg capsule RxNorm: 777674 TAKE ONE CAPSUL E BY MOUTH TWICE A DAY NEEDED FOR PAIN 09/11/2019 10/16/2019 Inactive clonidine HCl 0.1 mg tablet RxNorm: 359709 TAKE ONE TAB LET BY MOUTH FOUR TIMES A DAY 09/11/2019 10/16/2019 Inactive doxepin 25 mg capsule RxNorm: 0044733 1 Capsule(s) Oral every night at bedtime as needed for sleep 08/21/2019 11/15/2019 Inactive hydrocodone 10 mg-acetaminophen 325 mg tablet RxNorm: 755535 1-2 Tablet(s) PO TID 08/12/2019 09/29/2019 Inactive as needed for pa in - Previous quantity #240, will start dosing for #180 in April 2011 per Doctor Td. Medrol (Dustin) 4 mg tablets in a dose pack RxNorm: 925875 Tablet(s) Oral As Directed 07/21/2019 09/29/2019 Inactive Premarin 1.25 mg tablet RxNorm: 860179 1 Tablet(s) Oral QD 07/02/2009/29/2019 Inactive hydrocodone 10 mg-acetaminophen 325 mg tablet RxNorm: 863211 1-2 Tablet(s) PO TID 07/01/2019 08/11/2019 Inactive as needed for pa in - Previous quantity #240, will start dosing for #180 in April 2011 per Doctor Td. gabapentin 300 mg capsule RxNorm: 527292 1 Capsule(s) PO QHS 201809/18/2019 Inactive celecoxib 200 mg capsule RxNorm: 695211 1 Capsule(s) Or al two times a day as needed for pain 06/27/2019 06/27/2019 Inactive furosemide 40 mg tablet RxNorm: 032224 TAKE ONE TABLET BY MOUTH EVERY MORNING NEEDED FOR EDEMA . TAKE WITH POTASSIUM 06/24/2019 No Stop Date Active doxepin 25 mg capsule RxNorm: 6977128 TAKE ONE CAPSULE B Y MOUTH EVERY NIGHT AT BEDTIME NEEDED FOR SLEEP 06/24/2019 08/20/2019 Inactive Singulair 10 mg tablet RxNorm: 969328 TAKE ONE TABLET BY MOUTH JOSÉ Y 06/24/2019 10/16/2019 Inactive lisinopril 20 mg tablet RxNorm: 934412 TAKE ONE TABLET BY MOUTH DAILY .... THIS REPLACE 10MG TABLETS 06/24/2019 09/10/2019 Inactive nystatin-triamcinolone 100,000 unit/g-0.1 % topical cream Rx Norm: 0872304 1 Application Topical two times a day 06/12/2019 06/19/2019 Inactive apply BID for 1 week nystatin-triamcinolone 100,000 unit/g-0.1 % topical cream Rx Norm: 3490371 1 Application Topical two times a day 06/12/2019 06/11/2019 Inactive apply BID for 1 week hydrocodone 10 mg-acetaminophen 325 mg tablet RxNorm: 131674 1-2 Tablet(s) PO QID as needed for pain MUST LAST 30 DAYS 05/28/2019 06/26/2019 Inactiv e (Response to an electronic controlled substance refill request - RxReferenceNumber: [id number]) baclofen 20 mg tablet RxNorm: 443899 1 Tablet(s) PO TID as needed for muscle spasm 05/19/2019 05/27/2019 Inactive gabapentin 300 mg capsule RxNorm: 788160 1 Capsule(s) PO QHS 201805/27/2019 Inactive lisinopril 20 mg tablet RxNorm: 216409 1 Tablet(s) PO Q D TAKE ONE TABLET BY MOUTH DAILY, REPLACES 10 MG DOSE 05/19/2019 06/23/2019 Inactive doxepin 25 mg capsule RxNorm: 3062437 TAKE ONE CAPSULE B Y MOUTH EVERY NIGHT AT BEDTIME NEEDED FOR SLEEP 05/16/2019 06/14/2019 Inactive lisinopril 20 mg tablet RxNorm: 938150 TAKE ONE TABLET BY MOUTH DAILY, REPLACES 10 MG DOSE 05/16/2019 05/18/2019 Inactive Singulair 10 mg tablet RxNorm: 216128 TAKE ONE TABLET BY MOUTH JOSÉ Y 05/16/2019 06/14/2019 Inactive gabapentin 300 mg capsule RxNorm: 729661 1 Capsule(s) PO QHS 201805/04/2019 Inactive estropipate 1.5 mg tablet RxNorm: 845471 1 Tablet(s) PO QD 05/05/2005/27/2019 Inactive estropipate 1.5 mg tablet RxNorm: 372639 1 Tablet(s) PO QD 05/05/20 19 05/04/2019 Inactive gabapentin 300 mg capsule RxNorm: 964429 1 Capsule(s) PO QHS 201805/18/2019 Inactive hydrocodone 10 mg-acetaminophen 325 mg tablet RxNorm: 710761 1-2 Tablet(s) PO QID as needed for pain MUST LAST 30 DAYS 04/25/2019 05/24/2019 Inactiv e (Response to an electronic controlled substance refill request - RxReferenceNumber: [id number]) cyclobenzaprine 10 mg tablet RxNorm: 083126 TAKE ONE TA BLET BY MOUTH THREE TIMES A DAY NEEDED FOR MUSCLE SPASMS 04/24/2019 05/18/2019 Inactive metoprolol tartrate 100 mg tablet RxNorm: 564601 TAKE O NE TABLET BY MOUTH TWICE A DAY 04/24/2019 10/16/2019 Inactive Lyrica 75 mg capsule RxNorm: 103423 1 Capsule(s) PO QHS 03/25/2019 Inactive duloxetine 60 mg capsule,delayed release RxNorm: 953869 TAKE ONE CAPSULE BY MOUTH DAILY 03/21/2019 05/19/2019 Inactive triamterene 75 mg-hydrochlorothiazide 50 mg tablet RxNorm: 3 10651 TAKE ONE TABLET BY MOUTH DAILY 03/21/2019 05/19/2019 Inactive Klor-Con 8 mEq tablet,extended release RxNorm: 176215 T FARRUKH ONE TABLET BY MOUTH TWICE A DAY 03/21/2019 09/18/2019 Inactive Lipitor 10 mg tablet RxNorm: 805464 TAKE ONE TABLET BY MOUTH AT BEDTIME 03/21/2019 09/10/2019 Inactive clonidine HCl 0.1 mg tablet RxNorm: 239577 TAKE ONE TAB LET BY MOUTH FOUR TIMES A DAY 03/21/2019 05/19/2019 Inactive allopurinol 300 mg tablet RxNorm: 228010 TAKE ONE TABLET BY LOPEZ TH DAILY 03/21/2019 05/19/2019 Inactive hydrocodone 10 mg-acetaminophen 325 mg tablet RxNorm: 270107 1-2 Tablet(s) PO QID as needed for pain MUST LAST 30 DAYS 02/28/2019 03/29/2019 Inactiv e (Response to an electronic controlled substance refill request - RxReferenceNumber: [id number]) furosemide 40 mg tablet RxNorm: 733252 TAKE ONE TABLET BY MOUTH EVERY MORNING NEEDED FOR EDEMA . TAKE WITH POTASSIUM 02/21/2019 03/22/2019 Inactive cyclobenzaprine 10 mg tablet RxNorm: 226765 TAKE ONE TA BLET BY MOUTH THREE TIMES A DAY NEEDED FOR MUSCLE SPASMS 02/21/2019 04/21/2019 Inactive lisinopril 20 mg tablet RxNorm: 781404 TAKE ONE TABLET BY MOUTH DAILY, REPLACES 10 MG DOSE 02/21/2019 05/15/2019 Inactive doxepin 25 mg capsule RxNorm: 0128003 TAKE ONE CAPSULE B Y MOUTH EVERY NIGHT AT BEDTIME NEEDED FOR SLEEP 02/21/2019 05/15/2019 Inactive nystatin 100,000 unit/gram topical cream RxNorm: 464450 APPLY TO AFFECTED AREA(S) TWO TIMES A DAY 02/21/2019 03/22/2019 Inactive estradiol 1 mg tablet RxNorm: 676441 2 Tablet(s) PO QD replaces premarin 01/22/2019 05/04/2019 Inactive lisinopril 20 mg tablet RxNorm: 415134 TAKE ONE TABLET BY MOUTH DAILY, REPLACES 10 MG DOSE 01/20/2019 02/18/2019 Inactive cyclobenzaprine 10 mg tablet RxNorm: 470600 TAKE ONE TA BLET BY MOUTH THREE TIMES A DAY NEEDED FOR MUSCLE SPASMS 01/20/2019 02/18/2019 Inactive metoprolol tartrate 100 mg tablet RxNorm: 814013 TAKE O NE TABLET BY MOUTH TWICE A DAY 01/20/2019 02/18/2019 Inactive cyclobenzaprine 10 mg tablet RxNorm: 756717 TAKE ONE TA BLET BY MOUTH THREE TIMES A DAY NEEDED FOR MUSCLE SPASMS 12/19/2018 01/17/2019 Inactive lisinopril 20 mg tablet RxNorm: 271305 TAKE ONE TABLET BY MOUTH DAILY, REPLACES 10 MG DOSE 12/19/2018 01/17/2019 Inactive duloxetine 60 mg capsule,delayed release RxNorm: 510595 TAKE ONE CAPSULE BY MOUTH DAILY 12/19/2018 01/17/2019 Inactive Lipitor 10 mg tablet RxNorm: 848523 TAKE ONE TABLET BY MOUTH AT BEDTIME 12/19/2018 01/17/2019 Inactive cyclobenzaprine 10 mg tablet RxNorm: 429651 1 Tablet(s) PO TID as needed for muscle spasm 11/19/2018 12/18/2018 Inactive Singulair 10 mg tablet RxNorm: 123971 1 Tablet(s) PO QD 11/19/2018 Inactive lisinopril 20 mg tablet RxNorm: 543988 TAKE ONE TABLET BY MOUTH DAILY, REPLACES 10 MG DOSE 11/15/2018 12/18/2018 Inactive hydrocodone 10 mg-acetaminophen 325 mg tablet RxNorm: 285729 1-2 Tablet(s) PO QID as needed for pain MUST LAST 30 DAYS 11/13/2018 12/12/2018 Inactiv e (Response to an electronic controlled substance refill request - RxReferenceNumber: [id number]) nystatin 100,000 unit/gram topical cream RxNorm: 413869 APPLY TO AFFECTED AREA(S) TWO TIMES A DAY 10/23/2018 11/06/2018 Inactive lisinopril 20 mg tablet RxNorm: 313963 1 Tablet(s) PO QD replac es 10mg dose 10/18/2018 11/14/2018 Inactive hydrocodone 10 mg-acetaminophen 325 mg tablet RxNorm: 416208 1-2 Tablet(s) QID as needed for pain MUST LAST 30 DAYS 10/08/2018 11/06/2018 Inactive (Response to an electronic controlled substance refill request - RxReferenceNumber: [id number]) lisinopril 10 mg tablet RxNorm: 297118 1 Tablet(s) PO QD 10/03/2018 0 01/21/2019 Inactive Celebrex 200 mg capsule RxNorm: 876815 TAKE ONE CAPSULE BY MOUT H TWICE A DAY 09/30/2018 05/04/2019 Inactive cyclobenzaprine 10 mg tablet RxNorm: 341648 TAKE ONE TA BLET BY MOUTH THREE TIMES A DAY NEEDED FOR MUSCLE SPASMS 09/30/2018 11/18/2018 Inactive doxepin 25 mg capsule RxNorm: 5843645 TAKE ONE CAPSULE B Y MOUTH EVERY NIGHT AT BEDTIME NEEDED 09/05/2018 10/16/2018 Inactive omeprazole 40 mg capsule,delayed release RxNorm: 092672 TAKE ONE CAPSULE BY MOUTH DAILY 09/05/2018 01/21/2019 Inactive furosemide 40 mg tablet RxNorm: 224460 TAKE ONE TABLET BY MOUTH EVERY MORNING NEEDED FOR EDEMA . TAKE WITH POTASSIUM 09/05/2018 11/03/2018 Inactive phentermine 37.5 mg tablet RxNorm: 347945 1 Tablet(s) PO QAM 201701/21/2019 Inactive doxepin 25 mg capsule RxNorm: 3651347 1 Capsule(s) PO QH S as needed for sleep TAKE ONE CAPSULE BY MOUTH EVERY NIGHT AT BEDTIME NEEDED 08/27/2018 09/04/2018 Inactive Keflex 500 mg capsule RxNorm: 680413 1 Capsule(s) PO TID 08/09/2018 1 10/19/2017 Inactive Diflucan 100 mg tablet RxNorm: 674565 1 Tablet(s) PO QD 08/09/2018 Inactive Premarin 1.25 mg tablet RxNorm: 655542 2 Tablet(s) PO QD 08/09/2018 0 05/04/2019 Inactive Zofran ODT 4 mg disintegrating tablet RxNorm: 502915 1 Tablet(s) PO Q4H as needed for nausea 08/09/2018 01/21/2019 Inactive metoprolol tartrate 100 mg tablet RxNorm: 143235 TAKE O NE TABLET BY MOUTH TWICE A DAY 2018 10/04/2018 Inactive doxepin 25 mg capsule RxNorm: 4889528 TAKE ONE CAPSULE B Y MOUTH EVERY NIGHT AT BEDTIME NEEDED 2018 08/26/2018 Inactive cyclobenzaprine 10 mg tablet RxNorm: 702236 TAKE ONE TA BLET BY MOUTH THREE TIMES A DAY NEEDED FOR MUSCLE SPASMS 2018 09/29/2018 Inactive hydrocodone 10 mg-acetaminophen 325 mg tablet RxNorm: 571516 1-2 Tablet(s) QID as needed for pain MUST LAST 30 DAYS 07/29/2018 08/27/2018 Inactive (Response to an electronic controlled substance refill request - RxReferenceNumber: [id number]) nystatin 100,000 unit/gram topical powder RxNorm: 377952 Applic ation TOP BID 07/22/2018 08/04/2018 Inactive doxepin 25 mg capsule RxNorm: 8279764 1 Capsule(s) PO QHS as needed 07/22/2018 08/05/2018 Inactive triamterene 75 mg-hydrochlorothiazide 50 mg tablet RxNorm: 3 68917 TAKE ONE TABLET BY MOUTH DAILY 07/05/2018 10/02/2018 Inactive duloxetine 60 mg capsule,delayed release RxNorm: 580035 TAKE ONE CAPSULE BY MOUTH DAILY 07/05/2018 09/02/2018 Inactive Klor-Con 8 mEq tablet,extended release RxNorm: 909667 T FARRUKH ONE TABLET BY MOUTH TWICE A DAY 07/05/2018 10/02/2018 Inactive Lipitor 10 mg tablet RxNorm: 098910 TAKE ONE TABLET BY MOUTH AT BEDTIME 07/05/2018 09/02/2018 Inactive allopurinol 300 mg tablet RxNorm: 911137 TAKE ONE TABLET BY LOPEZ TH DAILY 07/05/2018 10/02/2018 Inactive clonidine HCl 0.1 mg tablet RxNorm: 546868 TAKE ONE TAB LET BY MOUTH FOUR TIMES A DAY 07/05/2018 10/02/2018 Inactive hydrocodone 10 mg-acetaminophen 325 mg tablet RxNorm: 496090 1-2 Tablet(s) QID as needed for pain MUST LAST 30 DAYS 06/28/2018 07/27/2018 Inactive (Response to an electronic controlled substance refill request - RxReferenceNumber: [id number]) MediHoney (calcium alginate-honey) 4" X 5" bandage RxNorm: 1 Application TOP QD 06/17/2018 06/26/2018 Inactive honey-hydrocolloid dressing 4" X 5" RxNorm: 1 Application TOP QD 06/17/2018 07/16/2018 Inactive furosemide 40 mg tablet RxNorm: 888450 TAKE ONE TABLET BY MOUTH EVERY MORNING NEEDED FOR EDEMA . TAKE WITH POTASSIUM 06/10/2018 07/09/2018 Inactive This is a refill request. hydrocodone 10 mg-acetaminophen 325 mg tablet RxNorm: 513692 1-2 Tablet(s) QID as needed for pain MUST LAST 30 DAYS 05/30/2018 06/27/2018 Inactive (Response to an electronic controlled substance refill request - RxReferenceNumber: [id number]) acyclovir 800 mg tablet RxNorm: 402054 1 Tablet(s) PO 5x day 201705/22/2018 Inactive Premarin 1.25 mg tablet RxNorm: 597552 1-2 Tablet(s) PO QD 05/15/20 18 07/13/2018 Inactive cyclobenzaprine 10 mg tablet RxNorm: 352630 1 Tablet(s) PO TID as needed for muscle spasm 05/09/2018 05/08/2018 Inactive Medrol (Dustin) 4 mg tablets in a dose pack RxNorm: 587240 Tablet(s) PO As Directed 05/02/2018 06/16/2018 Inactive hydrocodone 10 mg-acetaminophen 325 mg tablet RxNorm: 929003 1-2 Tablet(s) QID as needed for pain MUST LAST 30 DAYS 04/30/2018 05/29/2018 Inactive (Response to an electronic controlled substance refill request - RxReferenceNumber: [id number]) duloxetine 60 mg capsule,delayed release RxNorm: 391287 TAKE ONE CAPSULE BY MOUTH DAILY 04/16/2018 05/15/2018 Inactive Celebrex 200 mg capsule RxNorm: 146940 TAKE ONE CAPSULE BY MOUT H TWICE A DAY 04/16/2018 06/14/2018 Inactive Singulair 10 mg tablet RxNorm: 637156 TAKE ONE TABLET BY MOUTH JOSÉ Y 04/16/2018 11/19/2018 Inactive Lipitor 10 mg tablet RxNorm: 725253 TAKE ONE TABLET BY MOUTH AT BEDTIME 04/16/2018 05/15/2018 Inactive hydrocodone 10 mg-acetaminophen 325 mg tablet RxNorm: 303794 1-2 Tablet(s) QID as needed for pain MUST LAST 30 DAYS 03/29/2018 04/27/2018 Inactive (Response to an electronic controlled substance refill request - RxReferenceNumber: [id number]) cyclobenzaprine 10 mg tablet RxNorm: 035257 1 Tablet(s) PO TID as needed for muscle spasm 03/18/2018 05/09/2018 Inactive omeprazole 40 mg capsule,delayed release RxNorm: 201088 1 Capsu le(s) PO QD 02/26/2018 08/24/2018 Inactive hydrocodone 10 mg-acetaminophen 325 mg tablet RxNorm: 726133 1-2 Tablet(s) QID as needed for pain MUST LAST 30 DAYS 02/26/2018 03/27/2018 Inactive (Response to an electronic controlled substance refill request - RxReferenceNumber: [id number]) metoprolol tartrate 100 mg tablet RxNorm: 177321 1 Tablet(s) PO BID 02/18/2018 08/05/2018 Inactive Lyrica 75 mg capsule RxNorm: 005259 1 Capsule(s) PO QHS 01/30/2018 Inactive phentermine 37.5 mg tablet RxNorm: 696662 1 Tablet(s) PO QAM 201706/16/2018 Inactive hydrocodone 10 mg-acetaminophen 325 mg tablet RxNorm: 214787 1-2 Tablet(s) QID as needed for pain MUST LAST 30 DAYS 01/29/2018 02/25/2018 Inactive (Response to an electronic controlled substance refill request - RxReferenceNumber: [id number]) Klor-Con 8 mEq tablet,extended release RxNorm: 549622 1 Tablet( s) PO BID 01/14/2018 07/04/2018 Inactive allopurinol 300 mg tablet RxNorm: 309008 1 Tablet(s) PO QD 01/15/20 18 07/04/2018 Inactive Lipitor 10 mg tablet RxNorm: 555086 1 Tablet(s) PO QHS 01/14/201812/2017 Inactive triamterene 75 mg-hydrochlorothiazide 50 mg tablet RxNorm: 3 59231 1 Tablet(s) PO QD 01/14/2018 07/04/2018 Inactive hydrocodone 10 mg-acetaminophen 325 mg tablet RxNorm: 839401 1-2 Tablet(s) QID as needed for pain MUST LAST 30 DAYS 12/27/2017 01/25/2018 Inactive (Response to an electronic controlled substance refill request - RxReferenceNumber: [id number]) Onglyza 5 mg tablet RxNorm: 216635 1 Tablet(s) PO QD 12/18/201701/29 Inactive metformin 500 mg tablet RxNorm: 900558 1 Tablet(s) PO BID 12/11/2017 12/10/2017 Inactive metformin 500 mg tablet RxNorm: 268994 1 Tablet(s) PO BID 12/11/2017 12/17/2017 Inactive furosemide 40 mg tablet RxNorm: 709055 1 Tablet(s) PO Q AM prn edema--take with potassium 12/11/2017 06/08/2018 Inactive cyclobenzaprine 10 mg tablet RxNorm: 999836 1 Tablet(s) PO TID as needed for muscle spasm 12/11/2017 03/18/2018 Inactive hydrocodone 10 mg-acetaminophen 325 mg tablet RxNorm: 810516 1-2 Tablet(s) QID as needed for pain MUST LAST 30 DAYS 10/23/2017 11/21/2017 Inactive (Response to an electronic controlled substance refill request - RxReferenceNumber: [id number]) Lipitor 10 mg tablet RxNorm: 129270 1 Tablet(s) PO QHS 10/16/201703/2018 Inactive cyclobenzaprine 10 mg tablet RxNorm: 540350 1 Tablet(s) PO TID as needed for muscle spasm 10/09/2017 12/10/2017 Inactive hydroxyzine HCl 25 mg tablet RxNorm: 800908 1 Tablet(s) PO BID as needed for anxiety 09/20/2017 01/29/2018 Inactive Effexor XR 75 mg capsule,extended release RxNorm: 193179 1 Caps ule(s) PO QD 09/20/2017 01/29/2018 Inactive metoprolol tartrate 100 mg tablet RxNorm: 486848 1 Tablet(s) PO BID 08/20/2017 02/18/2018 Inactive baclofen 20 mg tablet RxNorm: 225377 1 Tablet(s) PO TID as needed for muscle spasm 08/20/2017 01/21/2019 Inactive clonidine HCl 0.1 mg tablet RxNorm: 032860 1 Tablet(s) PO QID 08/2005/16/2018 Inactive Seroquel 25 mg tablet RxNorm: 885276 1 Tablet(s) PO QHS 08/17/2017 Inactive Seroquel 25 mg tablet RxNorm: 375467 1 Tablet(s) PO QHS 08/17/2017 Inactive Diflucan 100 mg tablet RxNorm: 164898 TAKE ONE TABLET BY MOUTH JOSÉ Y 07/25/2017 08/07/2017 Inactive hydrocodone 10 mg-acetaminophen 325 mg tablet RxNorm: 766406 1-2 Tablet(s) QID as needed for pain MUST LAST 30 DAYS 07/19/2017 08/17/2017 Inactive (Response to an electronic controlled substance refill request - RxReferenceNumber: [id number]) clindamycin 300 mg capsule RxNorm: 693488 1 Capsule(s) PO TID 07/1907/28/2017 Inactive clotrimazole-betamethasone 1 %-0.05 % topical cream RxNorm: 219972 Application TOP BID to elbow rash 07/19/2017 06/16/2018 Inactive Singulair 10 mg tablet RxNorm: 505806 Tablet(s) TAKE ONE TABLET BY MOUTH DAILY 07/18/2017 04/13/2018 Inactive triamterene 75 mg-hydrochlorothiazide 50 mg tablet RxNorm: 3 85121 1 Tablet(s) PO QD 07/18/2017 01/14/2018 Inactive Celebrex 200 mg capsule RxNorm: 818820 Capsule(s) TAKE ONE CAPSULE BY MOUTH TWICE A DAY 07/18/2017 10/15/2017 Inactive hydrocodone 10 mg-acetaminophen 325 mg tablet RxNorm: 266266 1-2 Tablet(s) QID as needed for pain MUST LAST 30 DAYS 06/19/2017 07/18/2017 Inactive (Response to an electronic controlled substance refill request - RxReferenceNumber: [id number]) hydrocodone 10 mg-acetaminophen 325 mg tablet RxNorm: 999449 1-2 Tablet(s) QID as needed for pain MUST LAST 30 DAYS 06/19/2017 06/18/2017 Inactive (Response to an electronic controlled substance refill request - RxReferenceNumber: [id number]) baclofen 20 mg tablet RxNorm: 695704 1 Tablet(s) PO TID as needed for muscle spasm 06/18/2017 08/20/2017 Inactive Medrol (Dustin) 4 mg tablets in a dose pack RxNorm: 519895 Tablet(s) PO As Directed 06/05/2017 07/18/2017 Inactive omeprazole 40 mg capsule,delayed release RxNorm: 545921 1 Capsu le(s) PO QD 04/20/2017 10/16/2017 Inactive Premarin 1.25 mg tablet RxNorm: 447107 1-2 Tablet(s) PO QD 04/11/20 17 05/15/2018 Inactive duloxetine 60 mg capsule,delayed release RxNorm: 883942 1 Capsu le(s) PO QD 04/11/2017 09/19/2017 Inactive furosemide 40 mg tablet RxNorm: 984627 1 Tablet(s) PO Q AM prn edema--take with potassium 04/11/2017 12/11/2017 Inactive Klor-Con 8 mEq tablet,extended release RxNorm: 994307 1 Tablet( s) PO BID 04/11/2017 01/14/2018 Inactive Lipitor 10 mg tablet RxNorm: 715275 1 Tablet(s) PO QHS 04/11/201702/2018 Inactive amlodipine 5 mg-benazepril 20 mg capsule RxNorm: 647267 1 Capsu le(s) PO QD 04/11/2017 01/29/2018 Inactive allopurinol 300 mg tablet RxNorm: 649980 1 Tablet(s) PO QD 04/11/20 17 01/14/2018 Inactive clonidine HCl 0.1 mg tablet RxNorm: 054499 1 Tablet(s) PO QID 04/0508/19/2017 Inactive baclofen 20 mg tablet RxNorm: 593089 1 Tablet(s) PO TID as needed for muscle spasm 04/02/2017 06/18/2017 Inactive Premarin 1.25 mg tablet RxNorm: 619471 1-2 Tablet(s) PO QD 03/20/20 17 04/10/2017 Inactive hydrocodone 10 mg-acetaminophen 325 mg tablet RxNorm: 739871 1-2 Tablet(s) QID as needed for pain MUST LAST 30 DAYS 03/14/2017 01/21/2019 Inactive (Response to an electronic controlled substance refill request - RxReferenceNumber: [id number]) metoprolol tartrate 100 mg tablet RxNorm: 711998 1 Tablet(s) PO BID 02/12/2017 08/20/2017 Inactive hydrocodone 10 mg-acetaminophen 325 mg tablet RxNorm: 562439 1-2 Tablet(s) QID as needed for pain MUST LAST 30 DAYS 02/08/2017 03/09/2017 Inactive (Response to an electronic controlled substance refill request - RxReferenceNumber: [id number]) metoprolol tartrate 100 mg tablet RxNorm: 154393 TAKE O NE TABLET BY MOUTH TWICE A DAY 01/11/2017 02/12/2017 Inactive metoprolol tartrate 100 mg tablet RxNorm: 954926 1 Tablet(s) PO BID 12/18/2016 12/17/2016 Inactive metoprolol tartrate 100 mg tablet RxNorm: 004748 1 Tablet(s) PO BID 12/18/2016 01/10/2017 Inactive furosemide 40 mg tablet RxNorm: 949928 1 Tablet(s) PO Q AM prn edema--take with potassium 12/13/2016 02/10/2017 Inactive amitriptyline 100 mg tablet RxNorm: 788593 1 Tablet(s) PO QHS 11/2812/12/2016 Inactive baclofen 20 mg tablet RxNorm: 490533 1 Tablet(s) PO TID as needed for muscle spasm 11/14/2016 04/01/2017 Inactive triamterene 75 mg-hydrochlorothiazide 50 mg tablet RxNorm: 3 84678 1 Tablet(s) PO QD 11/14/2016 11/13/2016 Inactive metolazone 2.5 mg tablet RxNorm: 004275 TAKE ONE TABLET BY MOUTH DAILY NEEDED FOR EDEMA 11/14/2016 12/12/2016 Inactive triamterene 75 mg-hydrochlorothiazide 50 mg tablet RxNorm: 3 09823 1 Tablet(s) PO QD 11/14/2016 07/18/2017 Inactive amitriptyline 50 mg tablet RxNorm: 092023 TAKE ONE TABL ET BY MOUTH AT BEDTIME NEEDED FOR SLEEP 11/14/2016 11/27/2016 Inactive Cymbalta 60 mg capsule,delayed release RxNorm: 855124 1 Capsule (s) PO QHS 11/14/2016 12/12/2016 Inactive clonidine HCl 0.1 mg tablet RxNorm: 405787 1 Tablet(s) PO QID 11/1304/04/2017 Inactive amitriptyline 50 mg tablet RxNorm: 502237 1 Tablet(s) P O QHS as needed for sleep 11/01/2016 11/27/2016 Inactive duloxetine 60 mg capsule,delayed release RxNorm: 143742 TAKE ONE CAPSULE BY MOUTH DAILY 10/20/2016 01/17/2017 Inactive allopurinol 300 mg tablet RxNorm: 496773 TAKE ONE TABLET BY LOPEZ TH DAILY 10/20/2016 01/16/2017 Inactive Lyrica 75 mg capsule RxNorm: 564123 TAKE ONE CAPSULE BY MOUTH EVERY NIGHT AT BEDTIME 10/20/2016 12/10/2016 Inactive Klor-Con 8 mEq tablet,extended release RxNorm: 613741 T FARRUKH ONE TABLET BY MOUTH TWICE A DAY 10/20/2016 01/17/2017 Inactive Celebrex 200 mg capsule RxNorm: 634349 TAKE ONE CAPSULE BY MOUT H TWICE A DAY 10/20/2016 07/18/2017 Inactive Bystolic 10 mg tablet RxNorm: 541147 TAKE ONE TABLET BY MOUTH EVERY NIGHT AT BEDTIME 10/20/2016 12/17/2016 Inactive amlodipine 5 mg-benazepril 20 mg capsule RxNorm: 746489 TAKE ONE CAPSULE BY MOUTH EVERY NIGHT AT BEDTIME -- TO REPLACE AMLODOPINE 10/20/20162016 Inactive Lipitor 10 mg tablet RxNorm: 429285 TAKE ONE TABLET BY MOUTH EVERY NIGHT AT BEDTIME 10/20/2016 01/17/2017 Inactive alprazolam 0.5 mg tablet RxNorm: 702498 3 Tablet(s) PO QHS as needed for sleep/anxiety 09/20/2016 10/31/2016 Inactive Tamiflu 75 mg capsule RxNorm: 877992 1 Capsule(s) PO QD 09/19/2016 Inactive Lyrica 75 mg capsule RxNorm: 252017 1 Capsule(s) PO QHS 09/19/2016 Inactive prednisone 20 mg tablet RxNorm: 920295 1 Tablet(s) PO QD 08/10/2016 1 10/17/2015 Inactive doxycycline hyclate 100 mg capsule RxNorm: 8746095 1 Capsule(s) PO BID 08/10/2016 08/19/2016 Inactive Medrol (Dustin) 4 mg tablets in a dose pack RxNorm: 523239 Tablet(s) PO As Directed 07/31/2016 08/22/2016 Inactive Singulair 10 mg tablet RxNorm: 386292 TAKE ONE TABLET BY MOUTH JOSÉ Y 07/27/2016 07/18/2017 Inactive hydrocodone 10 mg-acetaminophen 325 mg tablet RxNorm: 659563 1-2 Tablet(s) QID as needed for pain MUST LAST 30 DAYS 07/26/2016 08/24/2016 Inactive (Response to an electronic controlled substance refill request - RxReferenceNumber: [id number]) alprazolam 0.5 mg tablet RxNorm: 491516 3 Tablet(s) PO QHS as needed for anxiety or sleep 07/26/2016 09/20/2016 Inactive clindamycin 300 mg capsule RxNorm: 587082 1 Capsule(s) PO TID 07/2007/29/2016 Inactive Diflucan 100 mg tablet RxNorm: 921627 1 Tablet(s) PO QD 07/20/2016 Inactive Levaquin 500 mg tablet RxNorm: 913220 1 Tablet(s) PO QD 07/17/2016 Inactive Levaquin 500 mg tablet RxNorm: 757996 1 Tablet(s) PO QD 07/10/2016 Inactive Levaquin 500 mg tablet RxNorm: 997504 1 Tablet(s) PO QD 07/10/2016 Inactive mupirocin 2 % topical ointment RxNorm: 160278 TOP Apply topically to affected areas twice daily 07/06/2016 09/18/2016 Inactive Singulair 10 mg tablet RxNorm: 004568 TAKE ONE TABLET BY MOUTH JOSÉ Y 06/21/2016 01/21/2019 Inactive alprazolam 0.5 mg tablet RxNorm: 090156 TAKE THREE TABL ETS BY MOUTH AT BEDTIME NEEDED FOR SLEEP OR STRESS 05/22/2016 06/20/2016 Inactive triamterene 75 mg-hydrochlorothiazide 50 mg tablet RxNorm: 3 93506 1 Tablet(s) PO QD 04/26/2016 10/21/2016 Inactive Premarin 1.25 mg tablet RxNorm: 247977 1-2 Tablet(s) PO QD 04/26/20 16 03/20/2017 Inactive Klor-Con 8 mEq tablet,extended release RxNorm: 152068 1 Tablet( s) PO BID 04/26/2016 10/19/2016 Inactive Celebrex 200 mg capsule RxNorm: 555283 1 Capsule(s) PO BID TAKE ONE CAPSULE BY MOUTH EVERY DAY 04/26/2016 10/19/2016 Inactive Lipitor 10 mg tablet RxNorm: 612198 1 Tablet(s) PO QHS 04/26/201605/2017 Inactive allopurinol 300 mg tablet RxNorm: 877277 1 Tablet(s) PO QD TAKE ONE TABLET BY MOUTH EVERY DAY 04/26/2016 10/19/2016 Inactive amlodipine 5 mg-benazepril 20 mg capsule RxNorm: 034874 1 Capsule(s) PO QHS replaces amlodopine 04/26/2016 10/19/2016 Inactive duloxetine 60 mg capsule,delayed release RxNorm: 374029 1 Capsu le(s) PO QD 04/26/2016 10/19/2016 Inactive Bystolic 10 mg tablet RxNorm: 608064 1 Tablet(s) PO QHS 04/26/2016 Inactive Singulair 10 mg tablet RxNorm: 148211 1 Tablet(s) PO QD TAKE ONE TABLET BY MOUTH DAILY 04/26/2016 06/20/2016 Inactive clonidine HCl 0.1 mg tablet RxNorm: 283274 1 Tablet(s) PO QID 04/2610/22/2016 Inactive hydrocodone 10 mg-acetaminophen 325 mg tablet RxNorm: 075808 1-2 Tablet(s) QID as needed for pain TAKE ONE TO TWO TABLETS BY MOUTH FOUR TIMES A DAY . MUST LAST 30 DAYS 03/31/2016 04/29/2016 Inactive (Response to an electronic controlled substance refill request - RxReferenceNumber: [id number]) Klor-Con 8 mEq tablet,extended release RxNorm: 417593 T FARRUKH ONE TABLET BY MOUTH TWICE A DAY 03/24/2016 09/29/2019 Inactive prednisone 20 mg tablet RxNorm: 456058 1 Tablet(s) PO QD 03/09/2016 0 03/08/2016 Inactive prednisone 20 mg tablet RxNorm: 858272 1 Tablet(s) PO QD 03/09/2016 0 03/13/2016 Inactive alprazolam 0.5 mg tablet RxNorm: 729635 3 Tablet(s) PO QHS as needed for sleep/stress 03/02/2016 01/21/2019 Inactive mupirocin 2 % topical ointment RxNorm: 734273 TOP twice daily to affected areas of face and neck 02/21/2016 04/25/2016 Inactive clonidine HCl 0.1 mg tablet RxNorm: 153120 TAKE ONE TAB LET BY MOUTH FOUR TIMES A DAY 02/15/2016 09/29/2019 Inactive clonidine HCl 0.1 mg tablet RxNorm: 406098 1 Tablet(s) PO QID 02/1404/25/2016 Inactive Premarin 1.25 mg tablet RxNorm: 353225 1-2 Tablet(s) PO QD 02/15/20 16 03/15/2016 Inactive Klor-Con 8 mEq tablet,extended release RxNorm: 652036 T FARRUKH ONE TABLET BY MOUTH TWICE A DAY 02/15/2016 03/15/2016 Inactive potassium chloride ER 20 mEq tablet,extended release(part/cr yst) RxNorm: 816504 2 Tablet(s) PO BID 02/15/2016 03/15/2016 Inactive Macrobid 100 mg capsule RxNorm: 958109 1 Capsule(s) PO BID 01/24/20 16 01/30/2016 Inactive prednisone 20 mg tablet RxNorm: 747399 Take 3tabs PO QD x 2 days, then 2 tabs PO QD x 2 days, then 1 tab PO QD x 2 days, then 1/2 tab PO QDy x 2 days 12/23/2015 04/25/2016 Inactive Klor-Con 8 mEq tablet,extended release RxNorm: 006832 T FARRUKH ONE TABLET BY MOUTH TWICE A DAY 12/20/2015 02/14/2016 Inactive alprazolam 1 mg tablet RxNorm: 879867 1 1/2 Tablet(s) PO QHS 201501/23/2016 Inactive nystatin 100,000 unit/gram topical cream RxNorm: 903623 APPLY TO AFFECTED AREA(S) TWO TIMES A DAY 11/30/2015 12/14/2015 Inactive Singulair 10 mg tablet RxNorm: 142347 TAKE ONE TABLET BY MOUTH JOSÉ Y 11/18/2015 04/25/2016 Inactive allopurinol 300 mg tablet RxNorm: 554158 1 Tablet(s) PO QD TAKE ONE TABLET BY MOUTH EVERY DAY 10/26/2015 04/22/2016 Inactive Singulair 10 mg tablet RxNorm: 271513 TAKE ONE TABLET BY MOUTH JOSÉ Y 10/26/2015 11/17/2015 Inactive duloxetine 60 mg capsule,delayed release RxNorm: 179111 1 Capsu le(s) PO QD 10/26/2015 04/22/2016 Inactive triamterene 75 mg-hydrochlorothiazide 50 mg tablet RxNorm: 3 79378 1 Tablet(s) PO QD 10/26/2015 11/14/2016 Inactive potassium chloride ER 20 mEq tablet,extended release(part/cr yst) RxNorm: 891120 2 Tablet(s) PO BID 10/26/2015 02/14/2016 Inactive Lipitor 10 mg tablet RxNorm: 804181 1 Tablet(s) PO QHS 10/26/2015 Inactive amlodipine 5 mg-benazepril 20 mg capsule RxNorm: 647560 1 Capsule(s) PO QHS replaces amlodopine 10/26/2015 04/22/2016 Inactive Bystolic 10 mg tablet RxNorm: 380773 1 Tablet(s) PO QHS 10/26/2015 Inactive amlodipine 5 mg-benazepril 20 mg capsule RxNorm: 140228 1 Capsule(s) PO QHS replaces amlodopine 10/06/2015 10/25/2015 Inactive amlodipine 5 mg tablet RxNorm: 497813 1 Tablet(s) PO QHS 09/30/2015 0 04/25/2016 Inactive metolazone 2.5 mg tablet RxNorm: 788819 TAKE ONE TABLET BY MOUTH DAILY NEEDED FOR EDEMA 09/30/2015 01/21/2019 Inactive duloxetine 60 mg capsule,delayed release RxNorm: 397876 1 Capsu le(s) PO QD 09/30/2015 10/25/2015 Inactive cephalexin 500 mg capsule RxNorm: 771083 1 Capsule(s) PO BID 201509/23/2015 Inactive mupirocin 2 % topical ointment RxNorm: 457607 TOP twice daily to affected areas of face and neck 09/14/2015 02/20/2016 Inactive baclofen 20 mg tablet RxNorm: 257124 1 Tablet(s) PO TID as needed for muscle spasm 09/01/2015 11/14/2016 Inactive clonidine HCl 0.1 mg tablet RxNorm: 495846 1 Tablet(s) PO QID 09/0102/14/2016 Inactive alprazolam 1 mg tablet RxNorm: 763353 1 1/2 Tablet(s) PO QHS 201409/09/2015 Inactive baclofen 20 mg tablet RxNorm: 596051 1 Tablet(s) PO TID as needed for muscle spasm 07/23/2015 09/01/2015 Inactive omeprazole 40 mg capsule,delayed release RxNorm: 656621 1 Capsu le(s) PO QD 07/23/2015 04/25/2016 Inactive alprazolam 1 mg tablet RxNorm: 135419 1 1/2 Tablet(s) PO QHS 201408/10/2015 Inactive Bystolic 10 mg tablet RxNorm: 931747 1 Tablet(s) PO BID 06/24/2015 Inactive allopurinol 300 mg tablet RxNorm: 776675 1 Tablet(s) PO QD TAKE ONE TABLET BY MOUTH EVERY DAY 06/23/2015 10/20/2015 Inactive alprazolam 1 mg tablet RxNorm: 874343 1 1/2 Tablet(s) PO QHS 201407/06/2015 Inactive clonidine HCl 0.1 mg tablet RxNorm: 662054 1 Tablet(s) PO QID 06/0209/01/2015 Inactive clonidine HCl 0.1 mg tablet RxNorm: 145269 1 Tablet(s) PO QID 06/0206/01/2015 Inactive Cymbalta 60 mg capsule,delayed release RxNorm: 868269 1 Capsule (s) PO QHS 06/02/2015 08/30/2015 Inactive Cymbalta 60 mg capsule,delayed release RxNorm: 820853 1 Capsule (s) PO QHS 06/02/2015 06/01/2015 Inactive clonidine HCl 0.1 mg tablet RxNorm: 608222 1 Tablet(s) PO TID 05/3106/01/2015 Inactive replaces 0.2mg dose metolazone 2.5 mg tablet RxNorm: 510558 TAKE ONE TABLET BY MOUTH DAILY NEEDED FOR EDEMA 05/21/2015 06/19/2015 Inactive Singulair 10 mg tablet RxNorm: 386375 TAKE ONE TABLET BY MOUTH JOSÉ Y 05/21/2015 10/17/2015 Inactive Cymbalta 30 mg capsule,delayed release RxNorm: 832726 1 Capsule (s) PO QHS 05/20/2015 11/14/2016 Inactive betamethasone valerate 0.1 % topical cream RxNorm: 146134 Appli cation TOP BID 05/10/2015 04/25/2016 Inactive Bactroban 2 % topical ointment RxNorm: 325683 Application TOP BID 0 05/10/2015 06/20/2015 Inactive baclofen 20 mg tablet RxNorm: 737491 1 Tablet(s) PO TID as needed 0 04/26/2015 07/23/2015 Inactive Lipitor 10 mg tablet RxNorm: 893719 1 Tablet(s) PO QHS 04/26/201508/2016 Inactive clonidine HCl 0.1 mg tablet RxNorm: 437628 1 Tablet(s) PO TID 04/2605/30/2015 Inactive replaces 0.2mg dose Klor-Con 8 mEq tablet,extended release RxNorm: 471288 1 Tablet( s) PO BID 04/26/2015 04/25/2016 Inactive metolazone 2.5 mg tablet RxNorm: 994965 1 Tablet(s) PO QD as ne eded for edema 04/26/2015 04/25/2015 Inactive triamterene 75 mg-hydrochlorothiazide 50 mg tablet RxNorm: 3 83171 1 Tablet(s) PO QD 04/26/2015 10/22/2015 Inactive Premarin 1.25 mg tablet RxNorm: 848064 1-2 Tablet(s) PO QD 04/26/20 15 10/22/2015 Inactive Bystolic 10 mg tablet RxNorm: 332868 1 Tablet(s) PO QAM TAKE ONE TABLET BY MOUTH EVERY MORNING 04/23/2015 06/23/2015 Inactive clonidine HCl 0.1 mg tablet RxNorm: 314398 1 Tablet(s) PO TID 03/2304/25/2015 Inactive replaces 0.2mg dose nystatin 100,000 unit/gram topical cream RxNorm: 496027 Applica tion TOP BID 03/23/2015 06/20/2015 Inactive baclofen 20 mg tablet RxNorm: 048095 1 Tablet(s) PO TID as needed 0 03/23/2015 04/25/2015 Inactive Premarin 1.25 mg tablet RxNorm: 277381 1-2 Tablet(s) PO QD 03/23/20 15 04/25/2015 Inactive Klor-Con 8 mEq tablet,extended release RxNorm: 906185 1 Tablet( s) PO BID 03/23/2015 04/25/2015 Inactive cefdinir 300 mg capsule RxNorm: 930831 2 Capsule(s) PO QD 03/16/2015 03/25/2015 Inactive baclofen 20 mg tablet RxNorm: 626435 1 Tablet(s) PO TID as needed 0 03/02/2015 03/22/2015 Inactive allopurinol 300 mg tablet RxNorm: 779808 1 Tablet(s) PO QD TAKE ONE TABLET BY MOUTH EVERY DAY 02/22/2015 05/22/2015 Inactive Klor-Con M20 mEq tablet,extended release RxNorm: 204120 2 Tablet(s) PO BID to use with lasix 02/22/2015 06/20/2015 Inactive clonidine HCl 0.1 mg tablet RxNorm: 623553 1 Tablet(s) PO TID 02/1903/22/2015 Inactive replaces 0.2mg dose Lipitor 10 mg tablet RxNorm: 757800 1 Tablet(s) PO QHS 01/20/201506/2015 Inactive Lipitor 10 mg tablet RxNorm: 603206 1 Tablet(s) PO QHS 01/20/2015 Inactive Singulair 10 mg tablet RxNorm: 580995 1 Tablet(s) PO QD TAKE ONE TABLET BY MOUTH EVERY DAY 11/20/2014 05/18/2015 Inactive Lipitor 10 mg tablet RxNorm: 823762 1 Tablet(s) PO QHS 11/20/201408/2015 Inactive allopurinol 300 mg tablet RxNorm: 994947 1 Tablet(s) PO QD TAKE ONE TABLET BY MOUTH EVERY DAY 11/20/2014 02/16/2015 Inactive Bystolic 10 mg tablet RxNorm: 442591 1 Tablet(s) PO QAM TAKE ONE TABLET BY MOUTH EVERY MORNING 11/20/2014 04/22/2015 Inactive Klor-Con 8 mEq tablet,extended release RxNorm: 154972 1 Tablet( s) PO BID 11/20/2014 02/17/2015 Inactive baclofen 20 mg tablet RxNorm: 906731 1 Tablet(s) PO TID as needed 0 11/20/2014 01/21/2019 Inactive baclofen 20 mg tablet RxNorm: 494390 1 Tablet(s) PO TID as needed 0 10/27/2014 11/19/2014 Inactive baclofen 20 mg tablet RxNorm: 264450 1 Tablet(s) PO TID as needed 0 10/26/2014 03/01/2015 Inactive allopurinol 300 mg tablet RxNorm: 044316 1 Tablet(s) PO QD TAKE ONE TABLET BY MOUTH EVERY DAY 10/26/2014 11/20/2014 Inactive Bystolic 10 mg tablet RxNorm: 873028 1 Tablet(s) PO QAM TAKE ONE TABLET BY MOUTH EVERY MORNING 10/26/2014 11/20/2014 Inactive clonidine HCl 0.1 mg tablet RxNorm: 363579 1 Tablet(s) PO TID 09/2805/27/2019 Inactive replaces 0.2mg dose clonidine HCl 0.1 mg tablet RxNorm: 282259 1 Tablet(s) PO TID 09/2802/18/2015 Inactive replaces 0.2mg dose baclofen 20 mg tablet RxNorm: 623922 1 Tablet(s) PO TID as needed 1 11/01/2013 08/30/2014 Inactive Lipitor 10 mg tablet RxNorm: 758863 1 Tablet(s) PO QHS 08/31/2014 Inactive baclofen 20 mg tablet RxNorm: 962639 1 Tablet(s) PO TID as needed 1 11/01/2013 10/26/2014 Inactive triamterene 75 mg-hydrochlorothiazide 50 mg tablet RxNorm: 3 57398 1 Tablet(s) PO QD 08/31/2014 02/26/2015 Inactive Klor-Con 8 mEq tablet,extended release RxNorm: 200841 1 Tablet( s) PO BID 08/31/2014 11/20/2014 Inactive baclofen 20 mg tablet RxNorm: 968447 1 Tablet(s) PO TID as needed 1 09/30/2013 10/25/2014 Inactive baclofen 20 mg tablet RxNorm: 824524 1 Tablet(s) PO TID as needed 1 09/30/2013 08/31/2014 Inactive omeprazole 40 mg capsule,delayed release RxNorm: 026092 1 Capsu le(s) PO QD 07/21/2014 07/23/2015 Inactive Flonase 50 mcg/actuation nasal spray,suspension RxNorm: 8963 23 1 [place] NASAL BID 07/15/2014 04/09/2017 Inactive hydrocodone 10 mg-acetaminophen 325 mg tablet RxNorm: 824069 1-2 Tablet(s) QID as needed for pain TAKE ONE TO TWO TABLETS BY MOUTH FOUR TIMES A DAY . MUST LAST 30 DAYS 06/30/2014 07/27/2014 Inactive (Response to an electronic controlled substance refill request - RxReferenceNumber: [id number]) baclofen 20 mg tablet RxNorm: 819554 1 Tablet(s) PO TID as needed 1 07/31/2014 Inactive Singulair 10 mg tablet RxNorm: 280043 1 Tablet(s) PO QD TAKE ONE TABLET BY MOUTH EVERY DAY 05/25/2014 11/20/2014 Inactive Bystolic 10 mg tablet RxNorm: 993201 TAKE ONE TABLET BY MOUTH E VERY MORNING 05/25/2014 09/21/2014 Inactive allopurinol 300 mg tablet RxNorm: 687342 1 Tablet(s) PO QD TAKE ONE TABLET BY MOUTH EVERY DAY 05/25/2014 10/21/2014 Inactive baclofen 20 mg tablet RxNorm: 468122 1 Tablet(s) PO TID as needed 0 05/25/2014 06/29/2014 Inactive allopurinol 300 mg tablet RxNorm: 003946 TAKE ONE TABLET BY LOPEZ TH EVERY DAY 05/25/2014 09/21/2014 Inactive Singulair 10 mg tablet RxNorm: 917483 1 Tablet(s) PO QD TAKE ONE TABLET BY MOUTH EVERY DAY 05/25/2014 05/24/2014 Inactive Bystolic 10 mg tablet RxNorm: 830065 1 Tablet(s) PO QAM TAKE ONE TABLET BY MOUTH EVERY MORNING 05/25/2014 10/21/2014 Inactive metolazone 2.5 mg tablet RxNorm: 833581 1 Tablet(s) PO QD as ne eded for edema 05/18/2014 04/25/2015 Inactive Lasix 40 mg tablet RxNorm: 636881 1 Tablet(s) PO QAM s hould take potassium supplementation with this medication 05/14/2014 05/17/2014 Inactive hydrocodone 10 mg-acetaminophen 325 mg tablet RxNorm: 546946 1-2 Tablet(s) QID as needed for pain TAKE ONE TO TWO TABLETS BY MOUTH FOUR TIMES A DAY . MUST LAST 30 DAYS 05/07/2014 06/05/2014 Inactive (Response to an electronic controlled substance refill request - RxReferenceNumber: [id number]) alprazolam 0.5 mg tablet RxNorm: 826471 TAKE ONE TABLET BY MOUTH TWICE A DAY , MUST LAST 30 DAYS 05/07/2014 05/22/2016 Inactive (Response to a n electronic controlled substance refill request - RxReferenceNumber: [id number]) diclofenac sodium 75 mg tablet,delayed release RxNorm: 39885 6 1 Tablet(s) PO BID for pain 04/24/2014 07/20/2014 Inactive Celebrex 200 mg capsule RxNorm: 864865 TAKE ONE CAPSULE BY MOUT H EVERY DAY 04/24/2014 07/20/2014 Inactive alprazolam 0.5 mg tablet RxNorm: 448589 TAKE ONE TABLET BY MOUTH TWICE A DAY , MUST LAST 30 DAYS 03/24/2014 04/22/2014 Inactive (Response to a n electronic controlled substance refill request - RxReferenceNumber: [id number]) diclofenac sodium 75 mg tablet,delayed release RxNorm: 67725 6 1 Tablet(s) PO BID for pain 03/24/2014 04/24/2014 Inactive clonidine HCl 0.1 mg tablet RxNorm: 215355 1 Tablet(s) PO TID 03/2409/28/2014 Inactive replaces 0.2mg dose Klor-Con 8 mEq tablet,extended release RxNorm: 848776 1 Tablet( s) PO BID 02/26/2014 08/31/2014 Inactive diclofenac sodium 75 mg tablet,delayed release RxNorm: 33619 6 1 Tablet(s) PO BID for pain 02/25/2014 03/24/2014 Inactive hydrocodone 10 mg-acetaminophen 325 mg tablet RxNorm: 553733 1-2 Tablet(s) QID as needed for pain TAKE ONE TO TWO TABLETS BY MOUTH FOUR TIMES A DAY . MUST LAST 30 DAYS 02/25/2014 03/26/2014 Inactive (Response to an electronic controlled substance refill request - RxReferenceNumber: [id number]) alprazolam 0.5 mg tablet RxNorm: 250455 Tablet(s) PO BI D as needed for anxiety TAKE ONE TABLET BY MOUTH TWICE A DAY , MUST LAST 30 DAYS 02/25/2014 Inactive (Response to an electronic controlled [place] bstance refill request - RxReferenceNumber: [id number]) [AttnRPh: Saving apply/adjudicate RxGRP:SG20 RxBIN:[id number] RxPCN: ID#:[id number]] alprazolam 0.5 mg tablet RxNorm: 459087 Tablet(s) TAKE ONE TABLET BY MOUTH TWICE A DAY , MUST LAST 30 DAYS 01/27/2014 02/24/2014 Inactive (Respo nse to an electronic controlled substance refill request - RxReferenceNumber: [id number]) [AttnRPh: Saving apply/adjudicate RxGRP:SG20 RxBIN:[id number] RxPCN:HT ID#:[id number]] hydrocodone 10 mg-acetaminophen 325 mg tablet RxNorm: 612380 1-2 Tablet(s) QID as needed for pain TAKE ONE TO TWO TABLETS BY MOUTH FOUR TIMES A DAY . MUST LAST 30 DAYS 01/27/2014 02/24/2014 Inactive (Response to an electronic controlled substance refill request - RxReferenceNumber: [id number]) alprazolam 0.5 mg tablet RxNorm: 304065 TAKE ONE TABLET BY MOUTH TWICE A DAY , MUST LAST 30 DAYS 01/27/2014 01/26/2014 Inactive (Response to a n electronic controlled substance refill request - RxReferenceNumber: [id number]) Premarin 1.25 mg tablet RxNorm: 063802 1-2 Tablet(s) PO QD 01/28/20 14 07/25/2014 Inactive alprazolam 0.5 mg tablet RxNorm: 031824 TAKE ONE TABLET BY MOUTH TWICE A DAY , MUST LAST 30 DAYS 01/27/2014 01/27/2014 Inactive (Response to a n electronic controlled substance refill request - RxReferenceNumber: [id number]) hydrocodone 10 mg-acetaminophen 325 mg tablet RxNorm: 365343 TAKE ONE TO TWO TABLETS BY MOUTH FOUR TIMES A DAY . MUST LAST 30 DAYS 01/27/20142013 Inactive (Response to an electronic controlled [place] bstance refill request - RxReferenceNumber: [id number]) Celebrex 200 mg capsule RxNorm: 130703 1 Capsule(s) PO QD TAKE ONE CAPSULE BY MOUTH EVERY DAY 12/29/2013 04/27/2014 Inactive hydrocodone 10 mg-acetaminophen 325 mg tablet RxNorm: 823842 1-2 Tablet(s) PO QID as needed for severe pain 12/29/2013 01/27/2014 Inactive allopurinol 300 mg tablet RxNorm: 353970 1 Tablet(s) PO QD TAKE ONE TABLET BY MOUTH EVERY DAY 12/29/2013 05/24/2014 Inactive alprazolam 0.5 mg tablet RxNorm: 708750 TAKE ONE TABLET BY MOUTH TWICE A DAY , MUST LAST 30 DAYS 12/29/2013 01/27/2014 Inactive (Response to a n electronic controlled substance refill request - RxReferenceNumber: [id number]) Celebrex 200 mg capsule RxNorm: 266230 1 Capsule(s) PO QD TAKE ONE CAPSULE BY MOUTH EVERY DAY 12/29/2013 12/29/2013 Inactive Bystolic 10 mg tablet RxNorm: 629848 1 Tablet(s) PO QAM TAKE ONE TABLET BY MOUTH EVERY MORNING 12/29/2013 05/24/2014 Inactive Bystolic 10 mg tablet RxNorm: 451073 1 Tablet(s) PO QAM TAKE ONE TABLET BY MOUTH EVERY MORNING 12/29/2013 12/29/2013 Inactive Singulair 10 mg tablet RxNorm: 185900 1 Tablet(s) PO QD TAKE ONE TABLET BY MOUTH EVERY DAY 12/29/2013 05/25/2014 Inactive hydrocodone 10 mg-acetaminophen 325 mg tablet RxNorm: 878208 TAKE ONE TO TWO TABLETS BY MOUTH FOUR TIMES A DAY . MUST LAST 30 DAYS 12/29/20132013 Inactive (Response to an electronic controlled [place] bstance refill request - RxReferenceNumber: [id number]) Trazadone 75mg Tablet RxNorm: 1 Tablet(s) PO QHS as needed 03/23/2014 Inactive Trazadone 75mg Tablet RxNorm: 1 Tablet(s) PO QHS 12/24/20132014 Inactive Soma 350 mg tablet RxNorm: 473989 Tablet(s) PO TAKE ON E TABLET BY MOUTH THREE TIMES A DAY NEEDED FOR MUSCLE SPASMS. THIS MUST LAST 30 DAYS BETWEEN REFILLS. 12/10/2013 12/22/2013 Inactive (Appended: Cont rolled substance eRx refill - RxReferenceNumber: [id number]) diclofenac sodium 75 mg tablet,delayed release RxNorm: 16764 6 1 Tablet(s) PO BID for pain 12/10/2013 02/24/2014 Inactive allopurinol 300 mg tablet RxNorm: 187235 1 Tablet(s) PO QD 11/20/19 14 12/29/2013 Inactive alprazolam 0.5 mg tablet RxNorm: 043095 2 Tablet(s) PO BID 11/13/19 14 12/29/2013 Inactive prn clonidine 0.1 mg tablet RxNorm: 422293 1 Tablet(s) PO TID 11/12/2013 02/09/2014 Inactive replaces 0.2mg dose Klor-Con M20 mEq tablet,extended release RxNorm: 541069 2 Tablet(s) PO BID to use with lasix 11/12/2013 05/10/2014 Inactive Singulair 10 mg tablet RxNorm: 438592 1 Tablet(s) PO QD 11/12/2013 Inactive hydrocodone 10 mg-acetaminophen 325 mg tablet RxNorm: 532393 1-2 Tablet(s) PO QID as needed for severe pain 11/12/2013 12/28/2013 Inactive Bystolic 10 mg tablet RxNorm: 158414 1 Tablet(s) PO QAM 11/12/2013 Inactive Soma 350 mg tablet RxNorm: 173295 Tablet(s) PO TAKE ON E TABLET BY MOUTH THREE TIMES A DAY NEEDED FOR MUSCLE SPASMS. THIS MUST LAST 30 DAYS BETWEEN REFILLS. 10/13/2013 12/10/2013 Inactive (Appended: Cont rolled substance eRx refill - RxReferenceNumber: [id number]) hydrocodone 10 mg-acetaminophen 325 mg tablet RxNorm: 766486 1-2 Tablet(s) PO QID as needed for severe pain 10/03/2013 11/11/2013 Inactive diclofenac sodium 75 mg tablet,delayed release RxNorm: 14673 8 1 Tablet(s) PO BID for pain 09/11/2013 12/10/2013 Inactive alprazolam 0.5 mg tablet RxNorm: 099226 1 Tablet(s) PO BID May refill on 04/26/13 09/01/2013 10/30/2013 Inactive prn hydrocodone 10 mg-acetaminophen 325 mg tablet RxNorm: 505976 1-2 Tablet(s) PO QID as needed for severe pain 09/01/2013 10/02/2013 Inactive triamterene 75 mg-hydrochlorothiazide 50 mg tablet RxNorm: 3 68266 1 Tablet(s) PO QD 08/04/2013 08/31/2014 Inactive cyclobenzaprine 10 mg tablet RxNorm: 692165 1 Tablet(s) PO TID prn spasm 08/04/2013 08/13/2013 Inactive clonidine 0.1 mg tablet RxNorm: 678519 1 Tablet(s) PO TID 08/04/2013 11/11/2013 Inactive replaces 0.2mg dose cyclobenzaprine 10 mg tablet RxNorm: 464914 1 Tablet(s) PO TID prn spasm 07/23/2013 08/01/2013 Inactive hydrocodone 10 mg-acetaminophen 325 mg tablet RxNorm: 585361 2 1-2 Tablet(s) PO QID as needed for severe pain 06/09/2013 08/07/2013 Inactive Singulair 10 mg tablet RxNorm: 552490 1 Tablet(s) PO QD 05/29/2013 Inactive Klor-Con 8 mEq tablet,extended release RxNorm: 782178 1 Tablet( s) PO BID 05/29/2013 02/26/2014 Inactive allopurinol 300 mg tablet RxNorm: 603971 1 Tablet(s) PO QD 05/29/20 13 11/19/2013 Inactive Bystolic 10 mg tablet RxNorm: 899794 1 Tablet(s) PO QAM take one daily in the morning. 05/29/2013 11/11/2013 Inactive scopolamine 1.5 mg 72 hr Transderm Patch RxNorm: 126755 Application TD Q72H for motion sickness 05/26/2013 07/22/2013 Inactive Soma 350 mg tablet RxNorm: 887384 1 Tablet(s) PO TID as needed for spasm 05/19/2013 10/13/2013 Inactive diclofenac sodium 75 mg tablet,delayed release RxNorm: 11456 8 1 Tablet(s) PO BID for pain 05/14/2013 07/22/2013 Inactive allopurinol 300 mg tablet RxNorm: 137975 1 Tablet(s) PO QD 04/25/20 13 05/28/2013 Inactive alprazolam 0.5 mg tablet RxNorm: 682631 1 Tablet(s) PO BID May refill on 04/26/13 04/25/2013 06/23/2013 Inactive prn Celebrex 200 mg capsule RxNorm: 605111 1 Capsule(s) PO QD 04/16/2013 12/29/2013 Inactive alprazolam 0.5 mg tablet RxNorm: 175687 1 Tablet(s) PO BID May refill on 04/26/13 04/16/2013 04/24/2013 Inactive prn Soma 350 mg tablet RxNorm: 903924 1 Tablet(s) PO TID as needed for spasm 04/16/2013 No Stop Date Active Lasix 40 mg tablet RxNorm: 666542 1 Tablet(s) PO QAM s hould take potassium supplementation with this medication 04/16/2013 06/14/2013 Inactive clonidine 0.1 mg tablet RxNorm: 534085 1 Tablet(s) PO TID 04/16/2013 08/03/2013 Inactive replaces 0.2mg dose prednisone 20 mg tablet RxNorm: 260938 1 Tablet(s) PO BID 04/16/2013 04/20/2013 Inactive diclofenac sodium 75 mg tablet,delayed release RxNorm: 97133 8 1 Tablet(s) PO BID for pain 04/14/2013 05/13/2013 Inactive hydrocodone 10 mg-acetaminophen 325 mg tablet RxNorm: 949996 2 1-2 Tablet(s) PO QID as needed for severe pain 04/14/2013 No Stop Date Active Lasix 40 mg tablet RxNorm: 407628 1 Tablet(s) PO QAM s hould take potassium supplementation with this medication 03/31/2013 04/15/2013 Inactive Celebrex 200 mg capsule RxNorm: 478102 1 Capsule(s) PO QD 03/31/2013 04/15/2013 Inactive alprazolam 0.5 mg tablet RxNorm: 414219 1 Tablet(s) PO BID 03/28/2004/15/2013 Inactive prn hydrocodone 10 mg-acetaminophen 325 mg tablet RxNorm: 456785 2 1-2 Tablet(s) PO QID as needed for severe pain 03/10/2013 No Stop Date Active metformin ER 500 mg 24 hr tablet,extended release RxNorm: 86 1018 1 Tablet(s) PO QD 03/06/2013 07/22/2013 Inactive clindamycin 300 mg capsule RxNorm: 850762 2 Capsule(s) PO TID 03/0503/14/2013 Inactive Zaroxolyn 2.5 mg tablet RxNorm: 580441 1 Tablet(s) PO QAM 03/05/2013 05/19/2015 Inactive amlodipine 10 mg tablet RxNorm: 204528 1 Tablet(s) PO QD 03/03/2013 0 05/25/2013 Inactive Norvasc 10 mg tablet RxNorm: 771744 1 Tablet(s) PO QD 02/28/201307/11 Inactive Celebrex 200 mg capsule RxNorm: 938730 1 Capsule(s) PO QD 02/28/2013 03/30/2013 Inactive diclofenac sodium 75 mg tablet,delayed release RxNorm: 98732 8 1 Tablet(s) PO BID for pain 02/14/2013 03/15/2013 Inactive Soma 350 mg tablet RxNorm: 528833 1 Tablet(s) PO TID as needed for spasm 02/14/2013 No Stop Date Active hydrocodone 10 mg-acetaminophen 325 mg tablet RxNorm: 117062 2 1-2 Tablet(s) PO QID as needed for severe pain 02/14/2013 No Stop Date Active Norvasc 10 mg tablet RxNorm: 979206 1 Tablet(s) PO QD 02/10/201302/09 Inactive Celebrex 200 mg capsule RxNorm: 459765 1 Capsule(s) PO QD 01/27/2013 01/26/2013 Inactive Premarin 1.25 mg tablet RxNorm: 324083 1-2 Tablet(s) PO QD 01/28/20 13 06/25/2013 Inactive alprazolam 0.5 mg tablet RxNorm: 840449 1 Tablet(s) PO BID 01/28/20 13 02/25/2013 Inactive prn amlodipine 5 mg tablet RxNorm: 211382 1 Tablet(s) PO QD 01/27/2013 Inactive Celebrex 200 mg capsule RxNorm: 682998 1 Capsule(s) PO QD 01/27/2013 02/27/2013 Inactive gabapentin 600 mg tablet RxNorm: 970003 1 Tablet(s) PO QHS 01/16/20 13 07/22/2013 Inactive Soma 350 mg tablet RxNorm: 260954 1 Tablet(s) PO TID as needed for spasm 01/15/2013 No Stop Date Active hydrocodone 10 mg-acetaminophen 325 mg tablet RxNorm: 068446 2 1-2 Tablet(s) PO QID as needed for severe pain 01/15/2013 No Stop Date Active Soma 350 mg tablet RxNorm: 047534 1 Tablet(s) PO TID as needed for spasm 01/13/2013 No Stop Date Active alprazolam 0.5 mg tablet RxNorm: 874521 1 Tablet(s) PO BID 12/31/19 13 01/26/2013 Inactive prn diclofenac sodium 75 mg tablet,delayed release RxNorm: 66573 8 1 Tablet(s) PO BID for pain 12/09/2012 01/07/2013 Inactive gabapentin 600 mg tablet RxNorm: 248744 1 Tablet(s) PO QHS 12/10/19 13 01/07/2013 Inactive hydrocodone 10 mg-acetaminophen 325 mg tablet RxNorm: 457805 2 1-2 Tablet(s) PO QID as needed for severe pain 12/02/2012 No Stop Date Active Levaquin 750 mg tablet RxNorm: 759290 1 Tablet(s) PO QD 11/21/2012 Inactive Singulair 10 mg tablet RxNorm: 867577 1 Tablet(s) PO QD 11/11/2012 Inactive clonidine 0.2 mg tablet RxNorm: 883249 1 Tablet(s) PO TID 11/11/2012 04/15/2013 Inactive alprazolam 0.5 mg tablet RxNorm: 324821 1 Tablet(s) PO BID 11/12/19 13 12/10/2012 Inactive prn Klor-Con 8 mEq tablet,extended release RxNorm: 811430 1 Tablet( s) PO BID 11/11/2012 03/04/2013 Inactive hydrocodone 10 mg-acetaminophen 325 mg tablet RxNorm: 482618 2 1-2 Tablet(s) PO QID as needed for severe pain 11/06/2012 No Stop Date Active alprazolam 0.5 mg tablet RxNorm: 267210 1 Tablet(s) PO BID 10/15/19 13 11/10/2012 Inactive prn hydrocodone-acetaminophen 10 mg-325 mg tablet RxNorm: 238823 2 1-2 Tablet(s) PO QID as needed for severe pain 10/10/2012 10/09/2012 Inactive allopurinol 300 mg tablet RxNorm: 945987 1 Tablet(s) PO QD 09/20/19 13 12/18/2012 Inactive alprazolam 0.5 mg tablet RxNorm: 292353 1 Tablet(s) PO BID 09/17/19 13 10/14/2012 Inactive prn hydrocodone-acetaminophen 10 mg-325 mg tablet RxNorm: 813148 2 1-2 Tablet(s) PO QID as needed for severe pain 08/22/2012 08/21/2012 Inactive Norvasc 10 mg tablet RxNorm: 101908 1 Tablet(s) PO QD 08/12/201201/10 Inactive Premarin 1.25 mg tablet RxNorm: 185916 1-2 Tablet(s) PO QD 07/30/20 12 12/26/2012 Inactive alprazolam 0.5 mg tablet RxNorm: 413856 1 Tablet(s) PO BID 07/29/20 12 08/27/2012 Inactive prn Klor-Con 8 mEq tablet,extended release RxNorm: 490309 1 Tablet( s) PO BID 07/29/2012 11/10/2012 Inactive hydrocodone-acetaminophen 10 mg-325 mg tablet RxNorm: 692283 2 1-2 Tablet(s) PO QID as needed for severe pain 07/29/2012 No Stop Date Active Premarin 1.25 mg tablet RxNorm: 767317 1-2 Tablet(s) PO QD 07/29/20 12 07/29/2012 Inactive clonidine 0.2 mg tablet RxNorm: 545251 1 Tablet(s) PO TID 07/29/2012 10/28/2012 Inactive ketorolac 10 mg tablet RxNorm: 228562 1 Tablet(s) PO QID prn he adache 07/18/2012 No Stop Date Active hydrocodone-acetaminophen 10 mg-325 mg tablet RxNorm: 327463 2 1-2 Tablet(s) PO QID as needed for severe pain 07/03/2012 No Stop Date Active amlodipine 5 mg tablet RxNorm: 187532 1 Tablet(s) PO QD 07/02/2012 Inactive allopurinol 300 mg tablet RxNorm: 659861 1 Tablet(s) PO QD 07/02/20 12 09/19/2012 Inactive Celebrex 200 mg capsule RxNorm: 537747 1 Capsule(s) PO QD for j oint pain 06/26/2012 10/23/2012 Inactive diclofenac sodium 75 mg tablet,delayed release RxNorm: 72003 8 1 Tablet(s) PO BID for pain 06/19/2012 09/16/2012 Inactive hydrocodone-acetaminophen 10 mg-325 mg tablet RxNorm: 690132 2 1-2 Tablet(s) PO QID as needed for severe pain 06/10/2012 No Stop Date Active alprazolam 0.5 mg tablet RxNorm: 681403 1 Tablet(s) PO BID 06/03/20 12 07/02/2012 Inactive prn ketorolac 10 mg tablet RxNorm: 052019 1 Tablet(s) PO Q8H 05/27/2012 0 01/21/2019 Inactive as needed for headache hydrocodone-acetaminophen 10 mg-325 mg tablet RxNorm: 271765 2 1-2 Tablet(s) PO QID as needed for severe pain 05/15/2012 No Stop Date Active allopurinol 300 mg tablet RxNorm: 317177 1 Tablet(s) PO QD 05/14/2006/12/2012 Inactive allopurinol 300 mg tablet RxNorm: 089535 1 Tablet(s) PO QD 05/14/20 12 05/13/2012 Inactive amlodipine 5 mg tablet RxNorm: 743931 1 Tablet(s) PO QD 05/01/2012 Inactive amlodipine 5 mg Tab RxNorm: 926730 1 Tablet(s) PO QD 05/01/201204/30 Inactive Celebrex 200 mg capsule RxNorm: 477681 1 Capsule(s) PO QD for j oint pain 05/01/2012 06/25/2012 Inactive Singulair 10 mg tablet RxNorm: 003589 1 Tablet(s) PO QD 05/01/2012 Inactive alprazolam 0.5 mg tablet RxNorm: 858544 1 Tablet(s) PO BID 05/01/2005/30/2012 Inactive prn Celebrex 200 mg Cap RxNorm: 583596 1 Capsule(s) PO QD for joint radu n 05/01/2012 04/30/2012 Inactive hydrocodone-acetaminophen 10 mg-325 mg tablet RxNorm: 856461 2 1-2 Tablet(s) PO QID as needed for severe pain 04/19/2012 No Stop Date Active Lasix 40 mg tablet RxNorm: 367542 1 Tablet(s) PO QAM s hould take potassium supplementation with this medication 04/05/2012 06/03/2012 Inactive alprazolam 0.5 mg Tab RxNorm: 128449 1 Tablet(s) PO BID 04/05/2012 Inactive prn hydrocodone-acetaminophen 10 mg-325 mg Tab RxNorm: 1775361 1-2 Tablet(s) PO QID as needed for severe pain 03/25/2012 03/24/2012 Inactive clonidine 0.2 mg Tab RxNorm: 643237 1 Tablet(s) PO TID 03/08/2012 Inactive alprazolam 0.5 mg Tab RxNorm: 832946 1 Tablet(s) PO BID 03/08/2012 Inactive prn Soma 350 mg tablet RxNorm: 492306 1 Tablet(s) PO TID for spasm 02/0903/18/2012 Inactive clonidine 0.2 mg tablet RxNorm: 147352 1 Tablet(s) PO TID 03/08/2012 07/28/2012 Inactive Celebrex 200 mg Cap RxNorm: 179377 1 Capsule(s) PO QD for joint radu n 03/01/2012 04/29/2012 Inactive amlodipine 5 mg Tab RxNorm: 524384 1 Tablet(s) PO QD 02/26/201202/24 Inactive amlodipine 5 mg Tab RxNorm: 382921 1 Tablet(s) PO QD 02/26/201204/25 Inactive Bactroban 2 % Ointment RxNorm: 571241 Application TOP QID to sores 02/23/2012 No Stop Date Active amlodipine 2.5 mg tablet RxNorm: 914845 1 Tablet(s) PO QHS 02/20/2002/25/2012 Inactive doxycycline hyclate 100 mg Cap RxNorm: 0232332 1 Capsule(s) PO BID 02/20/2012 02/29/2012 Inactive hydrocodone-acetaminophen 10 mg-325 mg Tab RxNorm: 4132704 1-2 T ablet(s) PO QID 02/08/2012 No Stop Date Active alprazolam 0.5 mg Tab RxNorm: 648694 1 Tablet(s) PO BID 02/08/2012 Inactive prn Singulair 10 mg Tab RxNorm: 985601 1 Tablet(s) PO QD 02/08/201204/30 Inactive Soma 350 mg Tab RxNorm: 545957 1 Tablet(s) PO TID for spasm 012 03/07/2012 Inactive Soma 350 mg Tab RxNorm: 083801 1 Tablet(s) PO TID for spasm 012 02/05/2012 Inactive diclofenac sodium 75 mg tablet,delayed release RxNorm: 35939 8 1 Tablet(s) PO BID for pain 02/01/2012 03/18/2012 Inactive Celebrex 200 mg Cap RxNorm: 770154 1 Capsule(s) PO QD for joint radu n 01/30/2012 02/28/2012 Inactive Lasix 40 mg Tab RxNorm: 679173 1 Tablet(s) PO QAM 01/24/2012 03/18/20 12 Inactive potassium chloride ER 20 mEq tablet,extended release(part/cr yst) RxNorm: 731980 2 Tablet(s) PO BID 01/24/2012 02/22/2012 Inactive alprazolam 0.5 mg Tab RxNorm: 325330 1 Tablet(s) PO BID 01/11/2012 Inactive prn hydrocodone-acetaminophen 10 mg-325 mg Tab RxNorm: 6137183 1-2 T ablet(s) PO QID 01/11/2012 No Stop Date Active Ambien 10 mg Tab RxNorm: 221099 1 Tablet(s) PO QHS 01/11/2012 012 Inactive Klor-Con 8 mEq Tab RxNorm: 370862 1 Tablet(s) PO BID 01/11/201201/22 Inactive diclofenac sodium 75 mg Tab, Delayed Release RxNorm: 436026 1 Tablet(s) PO BID for pain 01/10/2012 01/31/2012 Inactive Ambien 10 mg Tab RxNorm: 664489 1 Tablet(s) PO QHS 12/11/2011 012 Inactive alprazolam 0.5 mg Tab RxNorm: 868109 1 Tablet(s) PO BID 12/11/2011 Inactive prn hydrocodone 10 mg-acetaminophen 325 mg tablet RxNorm: 282912 1-2 Tablet(s) PO TID 11/28/2011 No Stop Date Active as needed for pa in - Previous quantity #240, will start dosing for #180 in April 2011 per Doctor Td. Ambien 10 mg Tab RxNorm: 888419 1 Tablet(s) PO QHS 11/09/2011 012 Inactive alprazolam 0.5 mg Tab RxNorm: 670871 1 Tablet(s) PO BID 11/09/2011 Inactive prn hydrocodone-acetaminophen 10 mg-325 mg Tab RxNorm: 9568485 1-2 T ablet(s) PO TID 11/06/2011 No Stop Date Active as needed for pain - Previous quantity #240, will start dosing for #180 in April 2011 per Doctor Td. Singulair 10 mg Tab RxNorm: 448364 1 Tablet(s) PO QD 10/13/201110/12 Inactive Singulair 10 mg Tab RxNorm: 211327 1 Tablet(s) PO QD 10/13/201102/06 Inactive hydrocodone-acetaminophen 10 mg-325 mg Tab RxNorm: 2219674 1-2 T ablet(s) PO TID 10/10/2011 10/09/2011 Inactive as needed for pain - Previous quantity #240, will start dosing for #180 in April 2011 per Doctor Td. hydrocodone-acetaminophen 10 mg-325 mg Tab RxNorm: 5392582 1-2 T ablet(s) PO TID 10/09/2011 No Stop Date Active as needed for pain - Previous quantity #240, will start dosing for #180 in April 2011 per Doctor Td. Klor-Con 8 mEq Tab RxNorm: 277108 1 Tablet(s) PO BID 10/02/201101/09 Inactive triamterene 75 mg-hydrochlorothiazide 50 mg tablet RxNorm: 3 15450 1 Tablet(s) PO QD 09/14/2011 03/06/2013 Inactive Ambien 10 mg Tab RxNorm: 791019 1 Tablet(s) PO QHS 09/14/2011 012 Inactive hydrocodone-acetaminophen 10 mg-325 mg Tab RxNorm: 2193693 1-2 T ablet(s) PO TID 09/14/2011 No Stop Date Active as needed for pain - Previous quantity #240, will start dosing for #180 in April 2011 per Doctor Td. alprazolam 0.5 mg Tab RxNorm: 597806 1 Tablet(s) PO BID 09/14/2011 Inactive prn Zithromax 500 mg Tab RxNorm: 664303 1 Tablet(s) PO QD 09/13/201109/10 Inactive prednisone 20 mg Tab RxNorm: 621539 1 Tablet(s) PO BID 08/31/2011 Inactive Ambien 10 mg Tab RxNorm: 005281 1 Tablet(s) PO QHS 08/17/2011 011 Inactive hydrocodone-acetaminophen 10 mg-325 mg Tab RxNorm: 8220631 1-2 T ablet(s) PO TID 08/17/2011 No Stop Date Active as needed for pain - Previous quantity #240, will start dosing for #180 in April 2011 per Doctor Td. clonidine 0.2 mg Tab RxNorm: 533458 1 Tablet(s) PO TID 08/17/201112/2011 Inactive Ambien 10 mg Tab RxNorm: 837186 1 Tablet(s) PO QHS 08/17/2011 019 Inactive alprazolam 0.5 mg Tab RxNorm: 244680 1 Tablet(s) PO BID 08/17/2011 Inactive prn hydrocodone-acetaminophen 10 mg-325 mg Tab RxNorm: 5840417 1-2 T ablet(s) PO TID 08/17/2011 08/16/2011 Inactive as needed for pain - Previous quantity #240, will start dosing for #180 in April 2011 per Doctor Td. Singulair 10 mg Tab RxNorm: 313910 1 Tablet(s) PO QD 08/17/201108/16 Inactive Klor-Con 8 mEq Tab RxNorm: 434871 1 Tablet(s) PO QD 08/17/20112011 Inactive alprazolam 0.5 mg Tab RxNorm: 585843 1 Tablet(s) PO BID 07/20/2011 Inactive prn Ambien 10 mg Tab RxNorm: 018462 1 Tablet(s) PO QHS 07/20/2011 012 Inactive Singulair 10 mg Tab RxNorm: 185031 1 Tablet(s) PO QD 07/20/201107/19 Inactive Premarin 1.25 mg tablet RxNorm: 517326 2 Tablet(s) PO QD 07/20/2011 0 01/21/2019 Inactive Premarin 1.25 mg tablet RxNorm: 178899 1-2 Tablet(s) PO QD 07/20/20 11 12/16/2011 Inactive Premarin 1.25 mg Tab RxNorm: 561846 1-2 Tablet(s) PO QD 07/06/2011 Inactive alprazolam 0.5 mg Tab RxNorm: 315218 1 Tablet(s) PO BID 06/22/2011 Inactive prn alprazolam 0.5 mg Tab RxNorm: 772812 1 Tablet(s) PO BID 06/22/2011 Inactive prn Premarin 1.25 mg Tab RxNorm: 234583 1 Tablet(s) PO QD m ay do 90 day fill if desired 06/22/2011 07/05/2011 Inactive hydrocodone-acetaminophen 10 mg-325 mg Tab RxNorm: 8475278 1-2 T ablet(s) PO TID 06/22/2011 No Stop Date Active as needed for pain - Previous quantity #240, will start dosing for #180 in April 2011 per Doctor Td. clonidine 0.2 mg Tab RxNorm: 280213 1 Tablet(s) PO TID 05/25/201103/2011 Inactive triamterene-hydrochlorothiazide 75 mg-50 mg Tab RxNorm: 3108 18 1 Tablet(s) PO QD 05/25/2011 09/13/2011 Inactive alprazolam 0.5 mg Tab RxNorm: 902682 1 Tablet(s) PO BID 05/25/2011 Inactive prn hydrocodone-acetaminophen 10 mg-325 mg Tab RxNorm: 9768739 1-2 T ablet(s) PO TID 05/25/2011 No Stop Date Active as needed for pain - Previous quantity #240, will start dosing for #180 in April 2011 per Doctor Td. Robaxin-750 750 mg Tab RxNorm: 045569 2 Tablet(s) PO QHS 05/22/2011 1 Inactive prn spasm hydrocodone-acetaminophen 10 mg-325 mg Tab RxNorm: 3656659 1-2 T ablet(s) PO TID 04/26/2011 No Stop Date Active as needed for pain - Previous quantity #240, will start dosing for #180 in April 2011 per Doctor Td. alprazolam 0.5 mg Tab RxNorm: 098512 1 Tablet(s) PO BID 04/25/2011 Inactive prn Klor-Con 8 mEq Tab RxNorm: 120136 1 Tablet(s) PO QD 03/30/20112010 Inactive Klor-Con 8 mEq Tab RxNorm: 909171 1 Tablet(s) PO QD 03/29/20112010 Inactive hydrocodone-acetaminophen 10 mg-325 mg Tab RxNorm: 4346744 1-2 T ablet(s) PO TID 03/20/2011 04/25/2011 Inactive as needed for pain - Previous quantity #240, will start dosing for #180 in April 2011 per Doctor Td. alprazolam 0.5 mg Tab RxNorm: 455497 1 Tablet(s) PO BID prn 011 03/30/2011 Inactive Ambien 10 mg Tab RxNorm: 675827 1 Tablet(s) PO QHS 03/01/2011 011 Inactive cyclobenzaprine 10 mg Tab RxNorm: 697031 1 Tablet(s) PO TID 011 03/18/2012 Inactive cyclobenzaprine 10 mg Tab RxNorm: 139669 1 Tablet(s) PO TID 011 01/08/2011 Inactive cyclobenzaprine 10 mg Tab RxNorm: 773739 1 Tablet(s) PO TID 011 12/20/2010 Inactive terbinafine 250 mg Tab RxNorm: 476454 1 Tablet(s) PO QD 12/12/2010 Inactive triamterene-hydrochlorothiazide 75 mg-50 mg Tab RxNorm: 3108 18 1 Tablet(s) PO QD 12/07/2010 06/04/2011 Inactive Klor-Con 8 8 mEq Tab RxNorm: 306262 1 Tablet(s) PO QD 12/07/201001/08 Inactive Premarin 1.25 mg Tab RxNorm: 812776 2 Tablet(s) PO QD 12/07/201001/08 Inactive clonidine 0.2 mg Tab RxNorm: 090837 1 Tablet(s) PO TID 12/07/2010 Inactive hydrocodone-acetaminophen 7.5 mg-650 mg Tab RxNorm: 016978 1 Ta blet(s) PO Q4H 12/05/2010 01/21/2019 Inactive hydrocodone-acetaminophen 7.5 mg-650 mg Tab RxNorm: 591329 1 Ta blet(s) PO Q4H 10/26/2010 11/14/2010 Inactive hydrocodone-acetaminophen 7.5 mg-650 mg Tab RxNorm: 513934 1 Ta blet(s) PO Q4H 10/13/2010 10/25/2010 Inactive hydrocodone-acetaminophen 7.5 mg-650 mg Tab RxNorm: 946319 1 Ta blet(s) PO Q4H 09/15/2010 09/12/2010 Inactive alprazolam 0.5 mg Tab RxNorm: 877037 1 Tablet(s) PO BID prn 011 09/12/2010 Inactive terbinafine 250 mg Tab RxNorm: 507672 1 Tablet(s) PO QD 09/05/2010 Inactive hydrocodone-acetaminophen 7.5 mg-650 mg Tab RxNorm: 569705 1 Ta blet(s) PO Q4H 08/29/2010 09/17/2010 Inactive alprazolam 0.5 mg Tab RxNorm: 061633 1 Tablet(s) PO BID prn 010 09/27/2010 Inactive alprazolam 0.5 mg Tab RxNorm: 791938 1 Tablet(s) PO BID prn 010 09/06/2010 Inactive Klor-Con 8 mEq Tab RxNorm: 990712 1 Tablet(s) PO QD 08/08/20102010 Inactive hydrocodone-acetaminophen 7.5 mg-650 mg Tab RxNorm: 140070 1 Ta blet(s) PO Q4H 08/08/2010 08/27/2010 Inactive Ambien 10 mg Tab RxNorm: 992537 1 Tablet(s) PO QHS 08/08/2010 Inactive clonidine 0.2 mg Tab RxNorm: 002328 1 Tablet(s) PO TID 08/08/2010 Inactive Premarin 1.25 mg Tab RxNorm: 329631 2 Tablet(s) PO QD 08/08/201009/12 Inactive Ambien 10 mg Tab RxNorm: 682773 1 Tablet(s) PO QHS 07/18/2010 Inactive alprazolam 0.5 mg Tab RxNorm: 229785 1 Tablet(s) PO BID prn 010 08/07/2010 Inactive hydrocodone-acetaminophen 7.5 mg-650 mg Tab RxNorm: 804392 1 Ta blet(s) PO Q4H 07/12/2010 07/31/2010 Inactive clonidine 0.2 mg Tab RxNorm: 670557 1 Tablet(s) PO TID 06/20/2010 Inactive terbinafine 250 mg Tab RxNorm: 072077 1 Tablet(s) PO QD 05/24/2010 Inactive Clonidine 0.2 mg Tab RxNorm: 556566 1 Tablet(s) PO TID 05/24/201006/2010 Inactive Ambien 10 mg Tab RxNorm: 079790 1 Tablet(s) PO QHS 05/24/2010 Inactive alprazolam 0.5 mg Tab RxNorm: 083860 1 Tablet(s) PO BID 05/24/2010 Inactive Klor-Con 8 mEq Tab RxNorm: 545817 1 Tablet(s) PO QD 05/24/20102009 Inactive alprazolam 0.5 mg Tab RxNorm: 217570 2 Tablet(s) PO QD prn 05/24/20 10 07/17/2010 Inactive triamterene-hydrochlorothiazide 75 mg-50 mg Tab RxNorm: 3108 18 1 Tablet(s) PO QD 05/24/2010 11/19/2010 Inactive Ambien 10 mg Tab RxNorm: 536290 1 Tablet(s) PO QHS 05/23/2010 010 Inactive Alprazolam 0.5 mg Tab RxNorm: 169176 2 Tablet(s) PO QD prn 05/23/20 10 05/23/2010 Inactive Premarin 1.25 mg Tab RxNorm: 313421 2 Tablet(s) PO QD 05/19/201007/12 Inactive Hydrocodone-Acetaminophen 7.5 mg-650 mg Tab RxNorm: 459904 1 Ta blet(s) PO Q4H 05/19/2010 03/20/2011 Inactive Prednisone 20 mg Tab RxNorm: 438347 1 Tablet(s) PO BID 05/17/2010 Inactive Prednisone 20 mg Tab RxNorm: 702650 1 Tablet(s) PO BID 05/06/201001/2010 Inactive Premarin 1.25 mg Tab RxNorm: 539973 Tablet(s) PO 2 M-W-F, and 1 Ku-Wj-Ynj-Sun 05/05/2010 08/02/2010 Inactive Premarin 1.25 mg Tab RxNorm: 490131 Tablet(s) PO 2 M-W-F, and 1 Pz-Nw-Pib-Sun 05/04/2010 05/04/2010 Inactive Premarin 1.25 mg Tab RxNorm: 050142 Tablet(s) PO 2 M-W-F, and 1 Wl-Rc-Byd-Sun 05/04/2010 05/03/2010 Inactive Prednisone 20 mg Tab RxNorm: 842264 1 Tablet(s) PO BID 04/27/2010 Inactive Alprazolam 0.5 mg Tab RxNorm: 463438 2 Tablet(s) PO QD prn 04/26/2005/22/2010 Inactive Clindamycin 300 mg Cap RxNorm: 497861 2 Capsule(s) PO TID 04/05/2010 04/18/2010 Inactive Terbinafine 250 mg Tab RxNorm: 392530 1 Tablet(s) PO QD 04/04/2010 Inactive Hydrocodone-Acetaminophen 7.5 mg-650 mg Tab RxNorm: 098106 1 Ta blet(s) PO Q4H 03/30/2010 04/18/2010 Inactive Avelox 400 mg Tab RxNorm: 519790 1 Tablet(s) PO QD 03/09/2010 010 Inactive Hydrocodone-Acetaminophen 7.5 mg-650 mg Tab RxNorm: 281658 1 Ta blet(s) PO Q4H 03/08/2010 03/27/2010 Inactive Alprazolam 0.5 mg Tab RxNorm: 595809 2 Tablet(s) PO QD prn 03/08/20 10 04/25/2010 Inactive Klor-Con 8 mEq Tab RxNorm: 745872 1 Tablet(s) PO QD when takes lasi x 03/07/2010 09/29/2019 Inactive Premarin 1.25 mg Tab RxNorm: 627509 1 Tablet(s) PO QD 03/03/201003/11 Inactive Alprazolam 0.5 mg Tab RxNorm: 704088 1 Tablet(s) PO BID PRN 010 No Stop Date Active triamterene-hydrochlorothiazide 75 mg-50 mg Tab RxNorm: 3108 18 1 Tablet(s) PO QD 02/09/2010 02/03/2011 Inactive Hydrocodone-Acetaminophen 10 mg-750 mg Tab RxNorm: 840931 1 Tablet(s) PO Q4H PRN 02/09/2010 03/20/2011 Inactive Clonidine 0.2 mg Tab RxNorm: 831721 1 Tablet(s) PO TID 01/13/201009/2009 Inactive Alprazolam 0.5 mg Tab RxNorm: 479971 1 Tablet(s) PO BID PRN 010 01/12/2010 Inactive Hydrocodone-Acetaminophen 10 mg-750 mg Tab RxNorm: 078848 1 Tablet(s) PO Q4H PRN 01/13/2010 01/12/2010 Inactive ANGELIQ 1 mg-0.5 mg Tab RxNorm: 1466640 1 Tablet(s) PO QD 12/27/2009 01/23/2010 Inactive Lasix 40 mg Tab RxNorm: 337884 1 Tablet(s) PO QAM 12/14/2009 06/11/20 10 Inactive Vitamin B12 1000mcg Tablet RxNorm: 1 Tablet(s) PO QD No Start Date Active cyclobenzaprine 10 mg tablet RxNorm: 956922 1 Tablet(s) PO TID as needed DO NOT USE WITH BACLOFEN No Start Date Active Vitamin D 5,000 unit Tab RxNorm: 1 Tablet(s) PO QD No Start Date Active vitamin E (dl, acetate) 400 unit Cap RxNorm: 961705 1 Capsule(s ) PO QD No Start Date Active Benadryl 25 mg Cap RxNorm: 6005387 Capsule(s) PO PRN No Start Date Inactive amitriptyline 100 mg tablet RxNorm: 910037 1 Tablet(s) PO QHS No St art Date 11/27/2016 Inactive Zithromax Z-Dustin 250 mg tablet RxNorm: 133504 Tablet(s) PO as di rected No Start Date 07/22/2013 Inactive Klor-Con 8 mEq tablet,extended release RxNorm: 160737 1 Tablet( s) PO BID No Start Date 07/28/2012 Inactive scopolamine 1.5 mg 72 hr Transderm Patch RxNorm: 642172 Application TD Q72H for motion sickness No Start Date 05/25/2013 Inactive Klonopin 1 mg tablet RxNorm: 338375 1-2 Tablet(s) PO QHS as nee ded for sleep No Start Date 06/20/2015 Inactive Klor-Con M20 mEq tablet,extended release RxNorm: 262324 2 Tablet(s) PO BID to use with lasix No Start Date 11/11/2013 Inactive Bystolic 5 mg tablet RxNorm: 056577 1 Tablet(s) PO QD No Start Date 1 Inactive Bystolic 10 mg tablet RxNorm: 413145 1 Tablet(s) PO BID No Start Da te 07/06/2015 Inactive Premarin 1.25 mg Tab RxNorm: 243399 Tablet(s) PO 2 --, and 1 [id number] No Start Date 05/03/2010 Inactive baclofen 20 mg tablet RxNorm: 251845 1 Tablet(s) PO TID as needed for muscle spasm No Start Date 07/22/2015 Inactive hydrocodone-acetaminophen 7.5 mg-650 mg Tab RxNorm: 289284 1 Tablet(s) PO Q4H as needed for pain No Start Date 03/20/2011 Inactive albuterol sulfate 1.25 mg/3 mL Neb Solution RxNorm: 863900 1 Unit Dose INH Q4H 2boxes No Start Date 09/06/2015 Inactive Butrans 20 mcg/hour Transderm Patch RxNorm: 357551 1 TD WEEKLY apply to skin weekly after removing previous. No Start Date 07/22/2013 Inactive Medrol (Dustin) 4 mg tablets in a dose pack RxNorm: 134922 Tablet(s) PO As Directed No Start Date 07/30/2016 Inactive hydrocodone-acetaminophen 10 mg-325 mg Tab RxNorm: 7620440 1-2 Tablet(s) PO TID as needed for pain No Start Date 03/19/2011 Inactive Klonopin 1 mg tablet RxNorm: 409067 1 Tablet(s) PO QHS No Start Date 02/28/2016 Inactive honey topical RxNorm: topical No Start Date 06/16/2018 Inactive Clonidine 0.2 mg Tab RxNorm: 870976 1 Tablet(s) PO TID No Start Date 01/12/2010 Inactive ketorolac 10 mg tablet RxNorm: 780580 1 Tablet(s) PO Q8H No Start D ate 03/18/2012 Inactive as needed for headache Singulair 10 mg Tab RxNorm: 683988 1 Tablet(s) PO QD No Start Date Inactive Premarin 1.25 mg Tab RxNorm: 769773 1 Tablet(s) PO QD No Start Date 1 Inactive Flonase 50 mcg/Actuation Nasal [place] RxNorm: 3949521 1 [place] AL BID No Start Date 03/18/2012 Inactive Terbinafine 250 mg Tab RxNorm: 798076 1 Tablet(s) PO QD No Start Da te 04/03/2010 Inactive Fexofenadine 180 mg Tab RxNorm: 0872076 1 Tablet(s) PO QD No Start Date 09/06/2015 Inactive baclofen 20 mg tablet RxNorm: 484349 1 Tablet(s) PO TID as needed N o Start Date 05/25/2014 Inactive Diovan 160 mg Tab RxNorm: 339320 1 Tablet(s) PO QD No Start Date 09/12 Inactive mupirocin 2 % topical ointment RxNorm: 320821 1 Application TOP QID No Start Date 04/25/2016 Inactive ZOFRAN ODT 4 mg Tab, Rapid Dissolve RxNorm: 700906 1 Tablet(s) PO Q4H No Start Date 03/18/2012 Inactive as needed for nausea and vomiting Alprazolam 0.5 mg Tab RxNorm: 089397 1 Tablet(s) PO BID PRN No Star t Date 01/12/2010 Inactive cyclobenzaprine 10 mg tablet RxNorm: 084950 1 Tablet(s) PO TID as needed for muscle spasm No Start Date 10/08/2017 Inactive Albuterol 0.083% Aerosol Solution RxNorm: 1 Appl ication INH Q4H Use one ampule every 4 hrs with nebulizer as needed for shortness of breath. No Start Date 10/09/2010 Inactive lorazepam 1 mg tablet RxNorm: 208068 1 1/2 Tablet(s) PO QHS No Star t Date 02/02/2016 Inactive Melatonin 3 mg Tab RxNorm: 650955 Tablet(s) PO PRN No Start Date 07/11 Inactive Medrol (Dustin) 4 mg Tabs in a Dose Pack RxNorm: 297438 Tablet(s) PO N o Start Date 11/28/2010 Inactive lorazepam 1 mg tablet RxNorm: 710711 1 Tablet(s) PO QHS as need ed for sleep No Start Date 01/30/2016 Inactive hydrocodone-acetaminophen 10 mg-325 mg Tab RxNorm: 8762495 1-2 Tablet(s) PO QID as needed for severe pain No Start Date 03/24/2012 Inactive celecoxib 200 mg capsule RxNorm: 440793 1 Capsule(s) PO BID No Star t Date 06/26/2019 Inactive amlodipine 5 mg-benazepril 20 mg capsule RxNorm: 072583 1 Capsu le(s) PO QD No Start Date 04/10/2017 Inactive Bystolic 20 mg tablet RxNorm: 197928 1/2 Tablet(s) PO QAM No Start Date 01/23/2016 Inactive Bystolic 20 mg tablet RxNorm: 955852 1 Tablet(s) PO QAM No Start Da te 04/25/2016 Inactive Ambien 10 mg Tab RxNorm: 128177 1 Tablet(s) PO QHS No Start Date 05/11 Inactive Klor-Con 8 mEq Tab RxNorm: 484311 1 Tablet(s) PO QD when takes lasix No Start Date 03/06/2010 Inactive aspirin 81 mg tablet RxNorm: 699244 1 Tablet(s) PO QD No Start Date 0 01/29/2018 Inactive hydrocodone-acetaminophen 10 mg-325 mg Tab RxNorm: 0083970 1-2 T ablet(s) PO QID No Start Date 01/10/2012 Inactive Bystolic 10 mg tablet RxNorm: 936782 1 Tablet(s) PO QAM take one daily in the morning. No Start Date 05/28/2013 Inactive nystatin 100,000 unit/mL Oral Susp RxNorm: 957044 5 Milliliter( s) PO QID No Start Date 03/18/2012 Inactive swish and spit scopolamine 1.5 mg 72 hr Transderm Patch RxNorm: 611532 1 Unit Dose TD Q72H for motion sickness No Start Date 12/23/2013 Inactive Hydrocodone-Acetaminophen 10 mg-750 mg Tab RxNorm: 837017 1 Tablet(s) PO Q4H PRN No Start Date 01/12/2010 Inactive Soma 350 mg tablet RxNorm: 817603 1 Tablet(s) PO TID as needed for spasm No Start Date 01/12/2013 Inactive baclofen 10 mg tablet RxNorm: 931435 1 Tablet(s) PO TID as needed for muscle spasm No Start Date 09/18/2019 Inactive Soma 350 mg Tab RxNorm: 346309 1 Tablet(s) PO TID for spasm No Star t Date 01/31/2012 Inactive Co Q-10 400 mg capsule RxNorm: 854784 1 Capsule(s) PO QD No Start D ate 01/21/2019 Inactive nystatin 100,000 unit/gram topical cream RxNorm: 156277 Applica tion TOP BID No Start Date 03/22/2015 Inactive Exforge 5 mg-160 mg Tab RxNorm: 937913 1 Tablet(s) PO QD No Start D ate 10/09/2010 Inactive Hydrocodone-Acetaminophen 7.5 mg-650 mg Tab RxNorm: 796171 1 Ta blet(s) PO Q4H No Start Date 03/07/2010 Inactive Robaxin-750 750 mg Tab RxNorm: 571450 1-2 Tablet(s) PO TID prn spasm No Start Date 05/21/2011 Inactive amlodipine 5 mg tablet RxNorm: 176647 1 Tablet(s) PO QHS No Start D ate 09/29/2015 Inactive oxycodone-acetaminophen 10 mg-325 mg tablet RxNorm: 7869444 1-2 Tablet(s) PO Q6H No Start Date 06/16/2018 Inactive Triamterene-Hydrochlorothiazide 75 mg-50 mg Tab RxNorm: 3108 18 1 Tablet(s) PO QD No Start Date 02/08/2010 Inactive Alprazolam 0.5 mg Tab RxNorm: 853441 2 Tablet(s) PO QD prn No Start Date 03/07/2010 Inactive Bystolic 20 mg tablet RxNorm: 444495 1 Tablet(s) PO QAM No Start Da te 08/17/2015 Inactive ketorolac 10 mg tablet RxNorm: 396370 1 Tablet(s) PO QID prn he adache No Start Date 07/17/2012 Inactive acyclovir 800 mg Tab RxNorm: 110526 1 Tablet(s) PO BID No Start Date 03/18/2012 Inactive duloxetine 60 mg capsule,delayed release RxNorm: 962706 1 Capsu le(s) PO QD No Start Date 09/29/2015 Inactive Norvasc 5 mg tablet RxNorm: 238667 1 Tablet(s) PO QHS No Start Date 1 10/18/2014 Inactive promethazine 25 mg tablet RxNorm: 710340 1 Tablet(s) PO Q8H use sparingly No Start Date 07/22/2013 Inactive alprazolam 0.5 mg tablet RxNorm: 222309 3 Tablet(s) PO QHS No Start Date 06/06/2015 Inactive Lunesta 3 mg tablet RxNorm: 684292 1 Tablet(s) PO QHS No Start Date 0 09/20/2017 Inactive hydrocodone-acetaminophen 10 mg-325 mg Tab RxNorm: 1284117 1-2 Tablet(s) PO TID as needed for pain No Start Date 12/10/2011 Inactive Coricidin HBP Cough & Cold 4 mg-30 mg Tab RxNorm: 5737126 Tablet (s) PO PRN No Start Date 10/09/2010 Inactive Bactroban 2 % Ointment RxNorm: 396317 Application TOP QID to so res No Start Date 02/22/2012 Inactive Flonase 50 mcg/actuation Nasal [place] RxNorm: 791669 2 [place] AL QHS No Start Date 03/03/2014 Inactive Medication Administered No Medication Administered data Immunizations Vaccine Codes Date Status Tetanus, Diptheria, Pertussis CVX: 115 02/27/2014 Results Observation Observation Code Item Item Code Result Date S ervice Location COMPREHENSIVE METABOLIC 82136 AST 15 U/L 2019 Unknown [facility]OL[facility] 95744 ALT 13 U/L 2019 Unknown [facility] 73728 BUN 12 mg/dL 2019 Unknown [facility] 64683 ALBUMIN 3.9 g/dL 2019 Unknown [facility] 10242 CHLORIDE 97 mmol/L 2019 Unknown COMPREHENS[facility] METABOLIC 11310 Bili Total 0.4 mg/dL 09/29 Unknown COMPREHENSIVE METABOLIC 55195 ALK PHOS 130 U/L 2019 Unknown COMPREHENSIVE METABOLIC 69176 SODIUM 136 mmol/L 09/29 Unknown COMPREHENSIVE METABOLIC 34661 CREATININE 0.92 mg/dL 09/11 Unknown [facility] MET[facility] 47780 CALCIUM 9.1 mg/dL 2019 Unknown [facility] MET[facility] 39198 POTASSIUM 4.4 mmol/L 09/29 Unknown COMPREHENS[facility] METABOLIC 18140 Total Protein 6.2 g/dL Unknown COMPREH[facility] MET[facility]OL[facility] 49457 Glucose 391 mg/dL 2019 Unknown COMPREH[facility] METABOL[facility] 99359 Bicarbonate 30 mmol/L 09/11 Unknown COMPREHENSIVE METABOLIC 85984 AGAP 9 mmol/L 2019 Unknown MEAN GLUC 7639434 Calc Mean Gluc 332 mg/dL 09/29/2019 Unkn own COMPLETE BLOOD COUNT 9755740 WBC 7.0 10e9/L 09/29/19 Unknown COMPLETE BLOOD COUNT [id number] RBC 4.69 10e12/L 2019 Unknown COMPLETE BLOOD COUNT 4555714 HEMOGLOBIN 14.6 g/dL 09/29/19 Unknown COMPLETE BLOOD COUNT [id number] HEMATOCRIT 45.2 % 09/29/19 Unknown COMPLETE BLOOD COUNT [id number] MCV 96.4 fL 0 Unknown COMPLETE BLOOD COUNT 3227616 MCH 31.1 pg 0 Unknown COMPLETE BLOOD COUNT 1171537 MCHC 32.3 g/dL 0 Unknown COMPLETE BLOOD COUNT [id number] PLATELET COUNT 209 10e9/L Unknown COMPLETE BLOOD COUNT 0136020 Mean Plt Volume 9.8 fL Unknown COMPLETE BLOOD COUNT 9326311 Neut Auto 48.1 % 0 Unknown COMPLETE BLOOD COUNT 0706275 Lymph Auto 36.5 % 09/29/19 Unknown COMPLETE BLOOD COUNT 0118898 [place] Auto 8.6 % 0 Unknown COMPLETE BLOOD COUNT 2347523 Eos Auto 6.5 % 0 Unknown COMPLETE BLOOD COUNT 2763128 RDW 13.4 % 0 Unknown COMPLETE BLOOD COUNT 3174447 Baso Auto 0.3 % 0 Unknown COMPLETE BLOOD COUNT 0679672 Neutrophil Abs 3.37 10e9/L Unknown COMPLETE BLOOD COUNT [id number] Lymphocyte Abs 2.56 10e9/L Unknown COMPLETE BLOOD COUNT [id number] Monocyte Abs 0.60 10e9/L 09/11 Unknown COMPLETE BLOOD COUNT [id number] Eosinophil Abs 0.46 10e9/L Unknown COMPLETE BLOOD COUNT [id number] RDW-SD 45.9 fL 0 Unknown COMPLETE BLOOD COUNT [id number] Basophil Abs 0.02 10e9/L 09/11 Unknown LIPID GROUP 68176 Cholesterol 248 mg/dL 09/29/2019 Unkno wn LIPID GROUP 68752 Triglyceride 898 mg/dL 09/29/2019 Unkn own LIPID GROUP 25817 HDL CHOLESTEROL 41 mg/dL 09/29/2019 U nknown LIP[facility] GROUP 41928 Chol/HDL Ratio 6.05 ratio 09/29/2019 U nknown L[facility] GROUP 11449 NON-HDL Chol 207 mg/dL 09/29/2019 Unkn own LIPID GROUP 14019 LDL Cholesterol N/A Trig >400 020 Unknown GLYCOSYLATED HEMOGLOBIN TEST 31494 Hgb A1c 38396-2 13.2 % 0 09/29/2019 Unknown FREE T4 07038 T4 Free 0.75 ng/dL 09/29/2019 Unknown GFR CALC 6591208 GFR Non Afr Amr >60 mL/min 09/29/2019 Un known GFR CALC 1773914 GFR Afr Amr >60 mL/min 09/29/2019 Unknow n THYROID STIMULATING HORMONE 86625 TSH 4.245 uIU/mL 09/29/2019 Unknown COMPLETE BLOOD COUNT [id number] WBC 10.7 10e9/L 018 Unknown COMPLETE BLOOD COUNT [id number] RBC 4.59 10e12/L 2017 Unknown COMPLETE BLOOD COUNT 8704614 HEMOGLOBIN 14.8 g/dL 12/11/19 18 Unknown COMPLETE BLOOD COUNT [id number] HEMATOCRIT 44.9 % 12/11/19 18 Unknown COMPLETE BLOOD COUNT 7784889 MCV 97.8 fL 8 Unknown COMPLETE BLOOD COUNT 9640747 MCH 32.2 pg 8 Unknown COMPLETE BLOOD COUNT 5973725 MCHC 33.0 g/dL 8 Unknown COMPLETE BLOOD COUNT 8353459 PLATELET COUNT 261 10e9/L 10/2017 Unknown COMPLETE BLOOD COUNT 3645196 Mean Plt Volume 9.5 fL 10/2017 Unknown COMPLETE BLOOD COUNT 5397898 Neut Auto 59.9 % 8 Unknown COMPLETE BLOOD COUNT 2757279 Lymph Auto 27.4 % 12/11/19 18 Unknown COMPLETE BLOOD COUNT 9973993 [place] Auto 8.2 % 8 Unknown COMPLETE BLOOD COUNT 1989873 Eos Auto 4.1 % 8 Unknown COMPLETE BLOOD COUNT 1457883 RDW 13.3 % 8 Unknown COMPLETE BLOOD COUNT 1588790 Baso Auto 0.4 % 8 Unknown COMPLETE BLOOD COUNT [id number] Neutrophil Abs 6.41 10e9/L Unknown COMPLETE BLOOD COUNT [id number] Lymphocyte Abs 2.93 10e9/L Unknown COMPLETE BLOOD COUNT [id number] Monocyte Abs 0.88 10e9/L 10/2017 Unknown COMPLETE BLOOD COUNT 2387467 Eosinophil Abs 0.44 10e9/L Unknown COMPLETE BLOOD COUNT 0528572 RDW-SD 46.2 fL 8 Unknown COMPLETE BLOOD COUNT 4888638 Basophil Abs 0.04 10e9/L 10/2017 Unknown THYROID STIMULATING HORMONE 10579 TSH 4.015 uIU/mL 12/10/2017 Unknown COMPREHENSIVE METABOLIC 84205 AST 25 U/L 2017 Unknown COMPREHENSIVE METABOLIC 48309 ALT 17 U/L 2017 Unknown COMPREHENSIVE METABOLIC 13108 BUN 19 mg/dL 2017 Unknown COMPREHENSIVE METABOLIC 49999 ALBUMIN 4.0 g/dL 2017 Unknown COMPREHENSIVE METABOLIC 41483 CHLORIDE 91 mmol/L 2017 Unknown COMPREHENSIVE METABOLIC 23150 Bili Total 0.5 mg/dL 12/10 Unknown COMPREHENSIVE METABOLIC 83888 ALK PHOS 75 U/L 2017 Unknown COMPREHENSIVE METABOLIC 63434 SODIUM 136 mmol/L 12/10 Unknown COMPREHENSIVE METABOLIC 66985 CREATININE 1.05 mg/dL 10/2017 Unknown COMPREHENSIVE METABOLIC 65393 CALCIUM 8.9 mg/dL 2017 Unknown COMPREHENSIVE METABOLIC 21436 POTASSIUM 3.4 mmol/L 12/10 Unknown COMPREHENSIVE METABOLIC 99006 Total Protein 6.5 g/dL Unknown COMPREHENSIVE METABOLIC 88559 Glucose 138 mg/dL 2017 Unknown COMPREHENSIVE METABOLIC 77317 Bicarbonate 35 mmol/L 10/2017 Unknown COMPREHENSIVE METABOLIC 70856 AGAP 10 mmol/L 2017 Unknown MEAN GLUC 6134287 Calc Mean Gluc 171 mg/dL 12/10/2017 Unkn own LIPID GROUP 47021 Cholesterol 204 mg/dL 12/10/2017 Unkno wn LIPID GROUP 23440 Triglyceride 411 mg/dL 12/10/2017 Unkn own LIP[facility] GROUP 41904 HDL CHOLESTEROL 50 mg/dL 12/10/2017 U nknown LIP[facility] GROUP 59368 Chol/HDL Ratio 4.08 ratio 12/10/2017 U nknown LIPID GROUP 01839 NON-HDL Chol 154 mg/dL 12/10/2017 Unkn own LIPID GROUP 95585 LDL Cholesterol N/A Trig >400 018 Unknown GLYCOSYLATED HEMOGLOBIN TEST 64143 Hgb A1c 05870-8 7.6 % 0 12/10/2017 Unknown FREE T4 98436 T4 Free 1.40 ng/dL 12/10/2017 Unknown GFR CALC 8240919 GFR Afr Amr >60 mL/min 12/10/2017 Unknow n GFR CALC 4098356 GFR Non Afr Amr 55 mL/min 12/10/2017 Unk nown GFR CALC 1526711 GFR Afr Amr 59 mL/min 06/28/2017 Unknown GFR CALC 7513545 GFR Non Afr Amr 48 mL/min 06/28/2017 Unk nown COMPREHENSIVE METABOLIC 82785 AST 32 U/L 2016 Unknown COMPREHENSIVE METABOLIC 63021 ALT 22 U/L 2016 Unknown COMPREHENSIVE METABOLIC 65879 BUN 23 mg/dL 2016 Unknown COMPREHENSIVE METABOLIC 38706 ALBUMIN 4.7 g/dL 2016 Unknown COMPREHENSIVE METABOLIC 84342 CHLORIDE 89 mmol/L 2016 Unknown COMPREHENSIVE METABOLIC 42979 Bili Total 0.5 mg/dL 06/28 Unknown COMPREHENSIVE METABOLIC 20953 ALK PHOS 90 U/L 2016 Unknown COMPREHENSIVE METABOLIC 59485 SODIUM 135 mmol/L 06/28 Unknown COMPREHENSIVE METABOLIC 64266 CREATININE 1.18 mg/dL 06/10 Unknown COMPREHENSIVE METABOLIC 03303 CALCIUM 9.7 mg/dL 2016 Unknown COMPREHENSIVE METABOLIC 50240 POTASSIUM 3.5 mmol/L 06/28 Unknown COMPREHENSIVE METABOLIC 76601 Total Protein 7.7 g/dL Unknown COMPREHENSIVE METABOLIC 96786 Glucose 129 mg/dL 2016 Unknown COMPREHENSIVE METABOLIC 46816 Bicarbonate 34 mmol/L 06/10 Unknown COMPREHENSIVE METABOLIC 10826 AGAP 12 mmol/L 2016 Unknown L[facility] GROUP 27186 HDL TEST 64 MG/DL 08/27/2014 Unknown L[facility] GROUP 92658 TRIG 222 MG/DL 08/27/2014 Unknown L[facility] 61713 TEST LDL 209 MG/DL 08/27/2014 Unknown L[facility] GROUP 24171 CHOL 317 MG/DL 08/27/2014 Unknown [facility] GROUP 14398 RCHOL/HDL 4.95 RATIO 08/27/2014 Unknow n LIPID GROUP 07883 NON-HDL CH 253 MG/DL 08/27/2014 Unknow n GFR CALC 4757082 GFR AA >60 ML/MIN 08/27/2014 Unknown GFR CALC 6140784 GFR NON-AA >60 ML/MIN 08/27/2014 Unknown COMPLETE BLOOD COUNT [id number] WBC 7.0 10e9/L 08/27/20 14 Unknown COMPLETE BLOOD COUNT 8391259 RBC 4.98 10e12/L 2013 Unknown COMPLETE BLOOD COUNT 9296772 HGB 15.6 g/dL 4 Unknown COMPLETE BLOOD COUNT 1152687 HCT DET 46.5 % 4 Unknown COMPLETE BLOOD COUNT 1611429 MCV 93.4 fL 4 Unknown COMPLETE BLOOD COUNT 0528554 MCH 31.3 pg 4 Unknown COMPLETE BLOOD COUNT 3415730 MCHC 33.5 g/dL 4 Unknown COMPLETE BLOOD COUNT 1515782 PLT 309 10e9/L 08/27/20 14 Unknown COMPLETE BLOOD COUNT 5871707 MPV 9.6 fL 4 Unknown COMPLETE BLOOD COUNT 2851477 CADEN % 57.2 % 4 Unknown COMPLETE BLOOD COUNT 6328249 LY % 33.2 % 4 Unknown COMPLETE BLOOD COUNT 2701254 MON % 7.3 % 4 Unknown COMPLETE BLOOD COUNT 2224863 EOS % 2.0 % 4 Unknown COMPLETE BLOOD COUNT 9570151 BASO % 0.3 % 4 Unknown COMPLETE BLOOD COUNT 8736968 RDW 13.7 % 4 Unknown COMPLETE BLOOD COUNT [id number] ABS CADEN 4.00 10e9/L 014 Unknown COMPLETE BLOOD COUNT [id number] ABS LYMPH 2.32 10e9/L 014 Unknown COMPLETE BLOOD COUNT 9652913 ABS MONO 0.51 10e9/L 014 Unknown COMPLETE BLOOD COUNT 8585038 ABS EOS 0.14 10e9/L 014 Unknown COMPLETE BLOOD COUNT [id number] ABS BASO 0.02 10e9/L 014 Unknown COMPLETE BLOOD COUNT 1657788 RDW-SD 45.1 fL 4 Unknown COMPREHENSIVE METABOLIC 12739 AST 13 U/L 2013 Unknown COMPREHENSIVE METABOLIC 39912 ALT 11 IU/L 2013 Unknown COMPREHENSIVE METABOLIC 23132 BUN 23 MG/DL 2013 Unknown COMPREHENSIVE METABOLIC 85517 ALBUMIN 4.4 GM/DL 2013 Unknown COMPREHENSIVE METABOLIC 32012 CHLORIDE 99 MMOL/L 2013 Unknown COMPREHENSIVE METABOLIC 46855 BILI TOT 0.5 MG/DL 2013 Unknown COMPREHENSIVE METABOLIC 84330 ALK PHOS 56 U/L 2013 Unknown COMPREHENSIVE METABOLIC 96181 SODIUM 138 MMOL/L 08/27 Unknown COMPREHENSIVE METABOLIC 97496 CREATININE 0.95 MG/DL 08/10 Unknown COMPREHENSIVE METABOLIC 26038 CALCIUM 9.8 MG/DL 2013 Unknown COMPREHENSIVE METABOLIC 05597 POTASSIUM 3.5 MMOL/L 08/27 Unknown COMPREHENSIVE METABOLIC 36565 PROT TOT 6.8 GM/DL 2013 Unknown COMPREHENSIVE METABOLIC 80798 Glucose 90 MG/DL 2013 Unknown COMPREHENSIVE METABOLIC 79189 BICARB 34 MMOL/L 2013 Unknown COMPREHENSIVE METABOLIC 77819 ANION GAP 5 MEQ/L 2013 Unknown LIPASE 83610 LIPASE 11 IU/L 07/21/2014 Unknown AMYLASE 37079 AMYLASE 39 IU/L 07/21/2014 Unknown HEMOGLOBIN A1C (GLYCOSYLATED) 5450834 A1C [facility] 82724-5 6.2 % 03/05/2013 Unknown THYROID STIMULATING HORMONE 51844 TSH 6.986 uIU/ML 03/05/2013 Unknown COMPLETE BLOOD COUNT [id number] WBC 12.7 10e9/L 013 Unknown COMPLETE BLOOD COUNT [id number] RBC 4.53 10e12/L 2012 Unknown COMPLETE BLOOD COUNT 5627684 HGB 14.7 g/dL 3 Unknown COMPLETE BLOOD COUNT 4146849 HCT DET 43.1 % 3 Unknown COMPLETE BLOOD COUNT 7236646 MCV 95.1 fL 3 Unknown COMPLETE BLOOD COUNT 0942036 MCH 32.5 pg 3 Unknown COMPLETE BLOOD COUNT 8763748 MCHC 34.1 g/dL 3 Unknown COMPLETE BLOOD COUNT 2509276 PLT 346 10e9/L 03/05/20 13 Unknown COMPLETE BLOOD COUNT 0495956 MPV 9.5 fL 3 Unknown COMPLETE BLOOD COUNT 3003648 CADEN % 67.6 % 3 Unknown COMPLETE BLOOD COUNT 6319181 LY % 22.1 % 3 Unknown COMPLETE BLOOD COUNT 3368641 MON % 6.6 % 3 Unknown COMPLETE BLOOD COUNT 2754591 EOS % 3.3 % 3 Unknown COMPLETE BLOOD COUNT 3725826 BASO % 0.4 % 3 Unknown COMPLETE BLOOD COUNT 5542501 RDW 14.0 % 3 Unknown COMPLETE BLOOD COUNT 4119245 ABS CADEN 8.59 10e9/L 013 Unknown COMPLETE BLOOD COUNT 9166431 ABS LYMPH 2.81 10e9/L 013 Unknown COMPLETE BLOOD COUNT 2779909 ABS MONO 0.84 10e9/L 013 Unknown COMPLETE BLOOD COUNT [id number] ABS EOS 0.42 10e9/L 013 Unknown COMPLETE BLOOD COUNT 2073504 ABS BASO 0.05 10e9/L 013 Unknown COMPLETE BLOOD COUNT 8603436 RDW-SD 46.0 fL 3 Unknown FREE T4 77874 FREE T4 1.14 NG/DL 03/05/2013 Unknown COMPREHENSIVE METABOLIC 93417 AST 17 U/L 2012 Unknown COMPREHENSIVE METABOLIC 87995 ALT 12 IU/L 2012 Unknown COMPREHENSIVE METABOLIC 44416 BUN 24 MG/DL 2012 Unknown COMPREHENSIVE METABOLIC 24217 ALBUMIN 4.2 GM/DL 2012 Unknown COMPREHENSIVE METABOLIC 86230 CHLORIDE 93 MMOL/L 2012 Unknown COMPREHENSIVE METABOLIC 17377 BILI TOT 0.5 MG/DL 2012 Unknown COMPREHENSIVE METABOLIC 91036 ALK PHOS 75 U/L 2012 Unknown COMPREHENSIVE METABOLIC 53998 SODIUM 141 MMOL/L 03/05 Unknown COMPREHENSIVE METABOLIC 14956 CREATININE 1.36 MG/DL 02/09 Unknown COMPREHENSIVE METABOLIC 11685 CALCIUM 9.2 MG/DL 2012 Unknown COMPREHENSIVE METABOLIC 29717 POTASSIUM 3.1 MMOL/L 03/05 Unknown COMPREHENSIVE METABOLIC 25684 PROT TOT 6.9 GM/DL 2012 Unknown COMPREHENSIVE METABOLIC 26490 Glucose 123 MG/DL 2012 Unknown COMPREHENSIVE METABOLIC 44124 BICARB 36 MMOL/L 2012 Unknown COMPREHENSIVE METABOLIC 54162 ANION GAP 12 MEQ/L 2012 Unknown GFR CALC 1125715 GFR AA 51.0L ML/MIN 03/05/2013 Unknow n GFR CALC 2681996 GFR NON-AA 42.0L ML/MIN 03/05/2013 Unkno wn COMPREHENSIVE METABOLIC 66649 AST 14 U/L 2012 Unknown COMPREHENSIVE METABOLIC 68405 ALT 11 IU/L 2012 Unknown COMPREHENSIVE METABOLIC 03100 BUN 16 MG/DL 2012 Unknown COMPREHENSIVE METABOLIC 63783 ALBUMIN 4.2 GM/DL 2012 Unknown COMPREHENSIVE METABOLIC 34033 CHLORIDE 98 MMOL/L 2012 Unknown COMPREHENSIVE METABOLIC 56672 BILI TOT 0.4 MG/DL 2012 Unknown COMPREHENSIVE METABOLIC 27391 ALK PHOS 77 U/L 2012 Unknown COMPREHENSIVE METABOLIC 56443 SODIUM 139 MMOL/L 09/25 Unknown COMPREHENSIVE METABOLIC 90500 CREATININE 0.86 MG/DL 09/10 Unknown COMPREHENSIVE METABOLIC 55220 CALCIUM 9.5 MG/DL 2012 Unknown COMPREHENSIVE METABOLIC 21770 POTASSIUM 3.8 MMOL/L 09/25 Unknown COMPREHENSIVE METABOLIC 22278 PROT TOT 6.8 GM/DL 2012 Unknown COMPREHENSIVE METABOLIC 54128 Glucose 91 MG/DL 2012 Unknown COMPREHENSIVE METABOLIC 07169 BICARB 32 MMOL/L 2012 Unknown COMPREHENSIVE METABOLIC 79849 ANION GAP 9 MEQ/L 2012 Unknown FREE T4 93875 FREE T4 0.98 NG/DL 09/25/2012 Unknown THYROID STIMULATING HORMONE 31070 TSH 1.736 uIU/ML 09/25/2012 Unknown C-REACTIVE PROTEIN (CRP) QUANT 07412 CRP 2.3 MG/DL 09/25/2012 Unknown COMPLETE BLOOD COUNT 5786773 WBC 11.9 10e9/L 013 Unknown COMPLETE BLOOD COUNT 2385744 RBC 4.87 10e12/L 2012 Unknown COMPLETE BLOOD COUNT 6907241 HGB 15.1 g/dL 3 Unknown COMPLETE BLOOD COUNT 1555141 HCT DET 44.8 % 3 Unknown COMPLETE BLOOD COUNT 2117266 MCV 92.0 fL 3 Unknown COMPLETE BLOOD COUNT 5092703 MCH 31.0 pg 3 Unknown COMPLETE BLOOD COUNT 7269794 MCHC 33.7 g/dL 3 Unknown COMPLETE BLOOD COUNT 5373433 PLT 343 10e9/L 09/25/19 13 Unknown COMPLETE BLOOD COUNT 9052530 MPV 9.0 fL 3 Unknown COMPLETE BLOOD COUNT 7847706 CADEN % 68.2 % 3 Unknown COMPLETE BLOOD COUNT 1170855 LY % 22.4 % 3 Unknown COMPLETE BLOOD COUNT 9203930 MON % 6.4 % 3 Unknown COMPLETE BLOOD COUNT 0744864 EOS % 2.7 % 3 Unknown COMPLETE BLOOD COUNT 5227932 BASO % 0.3 % 3 Unknown COMPLETE BLOOD COUNT 6007546 RDW 13.8 % 3 Unknown COMPLETE BLOOD COUNT 9126812 ABS CADEN 8.12 10e9/L 013 Unknown COMPLETE BLOOD COUNT [id number] ABS LYMPH 2.67 10e9/L 013 Unknown COMPLETE BLOOD COUNT 6297528 ABS MONO 0.76 10e9/L 013 Unknown COMPLETE BLOOD COUNT [id number] ABS EOS 0.32 10e9/L 013 Unknown COMPLETE BLOOD COUNT 6662988 ABS BASO 0.04 10e9/L 013 Unknown COMPLETE BLOOD COUNT 4674094 RDW-SD 45.6 fL 3 Unknown GFR CALC 7724061 GFR AA >60 ML/MIN 09/25/2012 Unknown GFR CALC 8258618 GFR NON-AA >60 ML/MIN 09/25/2012 Unknown ERYTHROCYTE SEDIMENTATION RATE 97083 ESR 19 MM/HR 05/06/2012 Unknown VITAMIN B 12 FOLIC ACID 23520|71519 VIT B 12 922 PG/ML 04/11 Unknown VITAMIN B 12 FOLIC ACID 67062|00563 FOLIC ACID 13.6 NG/ML Unknown URIC ACID 83579 URIC ACID 7.8 MG/DL 05/06/2012 Unknown COMPLETE BLOOD COUNT 69371 WBC 11.9 10e9/L 012 Unknown COMPLETE BLOOD COUNT 63602 RBC 5.30 10e12/L 2011 Unknown COMPLETE BLOOD COUNT 37958 HGB 16.6 g/dL 2 Unknown COMPLETE BLOOD COUNT 47107 HCT DET 47.2 % 2 Unknown COMPLETE BLOOD COUNT 49588 MCV 89.1 fL 2 Unknown COMPLETE BLOOD COUNT 44658 MCH 31.3 pg 2 Unknown COMPLETE BLOOD COUNT 20643 MCHC 35.2 g/dL 2 Unknown COMPLETE BLOOD COUNT 40428 PLT 362 10e9/L 05/06/20 12 Unknown COMPLETE BLOOD COUNT 81103 MPV 9.4 fL 2 Unknown COMPLETE BLOOD COUNT 55096 CADEN % 68.2 % 2 Unknown COMPLETE BLOOD COUNT 99315 LY % 22.0 % 2 Unknown COMPLETE BLOOD COUNT 46571 MON % 6.9 % 2 Unknown COMPLETE BLOOD COUNT 81341 EOS % 2.6 % 2 Unknown COMPLETE BLOOD COUNT 02824 BASO % 0.3 % 2 Unknown COMPLETE BLOOD COUNT 54877 RDW 12.8 % 2 Unknown COMPLETE BLOOD COUNT 58305 ABS CADEN 8.12 10e9/L 012 Unknown COMPLETE BLOOD COUNT 49099 ABS LYMPH 2.62 10e9/L 012 Unknown COMPLETE BLOOD COUNT 72449 ABS MONO 0.82 10e9/L 012 Unknown COMPLETE BLOOD COUNT 07800 ABS EOS 0.31 10e9/L 012 Unknown COMPLETE BLOOD COUNT 60691 ABS BASO 0.04 10e9/L 012 Unknown COMPLETE BLOOD COUNT 41319 RDW-SD 41.5 fL 2 Unknown GFR CALC 1663438 GFR AA >60 ML/MIN 05/06/2012 Unknown GFR CALC 8453947 GFR NON-AA 58.0L ML/MIN 05/06/2012 Unkno wn FREE T4 48791 FREE T4 1.15 NG/DL 05/06/2012 Unknown THYROID STIMULATING HORMONE 87898 TSH 1.568 uIU/ML 05/06/2012 Unknown COMPREHENSIVE METABOLIC 99930 AST 20 U/L 2011 Unknown COMPREHENSIVE METABOLIC 27397 ALT 12 IU/L 2011 Unknown COMPREHENSIVE METABOLIC 12995 BUN 20 MG/DL 2011 Unknown COMPREHENSIVE METABOLIC 81146 ALBUMIN 4.5 GM/DL 2011 Unknown COMPREHENSIVE METABOLIC 79213 CHLORIDE 91 MMOL/L 2011 Unknown COMPREHENSIVE METABOLIC 26216 BILI TOT 0.4 MG/DL 2011 Unknown COMPREHENSIVE METABOLIC 24263 ALK PHOS 73 U/L 2011 Unknown COMPREHENSIVE METABOLIC 71570 SODIUM 139 MMOL/L 05/06 Unknown COMPREHENSIVE METABOLIC 29653 CREATININE 1.02 MG/DL 04/11 Unknown COMPREHENSIVE METABOLIC 30262 CALCIUM 9.7 MG/DL 2011 Unknown COMPREHENSIVE METABOLIC 71646 POTASSIUM 3.1 MMOL/L 05/06 Unknown COMPREHENSIVE METABOLIC 44868 PROT TOT 7.3 GM/DL 2011 Unknown COMPREHENSIVE METABOLIC 08132 Glucose 118 MG/DL 2011 Unknown COMPREHENSIVE METABOLIC 20099 BICARB 33 MMOL/L 2011 Unknown COMPREHENSIVE METABOLIC 25796 ANION GAP 15 MEQ/L 2011 Unknown Procedures Procedure Codes Date ROUTINE VENIPUNCTURE CPT-4: 31659 09/29/2019 URINALYSIS NONAUTO W/O SCOPE CPT-4: 11403 09/29/2019 COMPREHEN METABOLIC PANEL CPT-4: 30830 09/29/2019 LIPID PANEL CPT-4: 11533 09/29/2019 A1C HPLC CPT-4: 23691 09/29/2019 ASSAY OF FREE THYROXINE CPT-4: 47275 09/29/2019 ASSAY THYROID STIM HORMONE CPT-4: 48327 09/29/2019 COMPLETE CBC W/AUTO DIFF WBC CPT-4: 62187 09/29/2019 URINALYSIS NONAUTO W/O SCOPE CPT-4: 84964 09/30/2018 MICROALBUMIN QUANTITATIVE CPT-4: 22945 09/30/2018 CEFTRIAXONE SODIUM INJECTION CPT-4: J0696 06/19/2018 THER/PROPH/DIAG INJ SC/IM CPT-4: 78619 06/19/2018 CEFTRIAXONE SODIUM INJECTION CPT-4: J0696 06/17/2018 THER/PROPH/DIAG INJ SC/IM CPT-4: 54877 06/17/2018 THER/PROPH/DIAG INJ SC/IM CPT-4: 13852 05/16/2018 KETOROLAC TROMETHAMINE INJ CPT-4: J1885 05/16/2018 ONDANSETRON HCL INJECTION CPT-4: J2405 05/16/2018 THER/PROPH/DIAG INJ SC/IM CPT-4: 50706 05/16/2018 ROUTINE VENIPUNCTURE CPT-4: 36965 03/20/2018 COMPREHEN METABOLIC PANEL CPT-4: 64118 03/20/2018 DEXAMETHASONE SODIUM PHOS CPT-4: J1100 02/11/2018 THER/PROPH/DIAG INJ SC/IM CPT-4: 17702 02/11/2018 TRIAMCINOLONE ACET INJ NOS CPT-4: J3301 02/11/2018 CEFTRIAXONE SODIUM INJECTION CPT-4: J0696 02/01/2018 THER/PROPH/DIAG INJ SC/IM CPT-4: 38781 02/01/2018 CEFTRIAXONE SODIUM INJECTION CPT-4: J0696 01/30/2018 THER/PROPH/DIAG INJ SC/IM CPT-4: 73865 01/30/2018 ROUTINE VENIPUNCTURE CPT-4: 79997 12/10/2017 ASSAY OF FREE THYROXINE CPT-4: 02411 12/10/2017 ASSAY THYROID STIM HORMONE CPT-4: 18116 12/10/2017 COMPREHEN METABOLIC PANEL CPT-4: 69215 12/10/2017 COMPLETE CBC W/AUTO DIFF WBC CPT-4: 72222 12/10/2017 LIPID PANEL CPT-4: 30047 12/10/2017 A1C HPLC CPT-4: 55312 12/10/2017 CEFTRIAXONE SODIUM INJECTION CPT-4: J0696 12/10/2017 THER/PROPH/DIAG INJ SC/IM CPT-4: 19169 12/10/2017 CEFTRIAXONE SODIUM INJECTION CPT-4: J0696 12/07/2017 THER/PROPH/DIAG INJ SC/IM CPT-4: 51349 12/07/2017 DEXAMETHASONE SODIUM PHOS CPT-4: J1100 12/07/2017 THER/PROPH/DIAG INJ SC/IM CPT-4: 24817 12/07/2017 CEFTRIAXONE SODIUM INJECTION CPT-4: J0696 10/08/2017 THER/PROPH/DIAG INJ SC/IM CPT-4: 73560 10/08/2017 CEFTRIAXONE SODIUM INJECTION CPT-4: J0696 09/21/2017 THER/PROPH/DIAG INJ SC/IM CPT-4: 68396 09/21/2017 CEFTRIAXONE SODIUM INJECTION CPT-4: J0696 09/20/2017 THER/PROPH/DIAG INJ SC/IM CPT-4: 30521 09/20/2017 REMOVAL OF NAIL PLATE CPT-4: 30452 08/29/2017 THER/PROPH/DIAG INJ SC/IM CPT-4: 15821 08/29/2017 TRIAMCINOLONE ACET INJ NOS CPT-4: J3301 08/29/2017 CEFTRIAXONE SODIUM INJECTION CPT-4: J0696 08/29/2017 THER/PROPH/DIAG INJ SC/IM CPT-4: 56139 08/29/2017 DESTRUCT PREMALG LESION (Cryosurgery) CPT-4: 66076 ROUTINE VENIPUNCTURE CPT-4: 30494 06/27/2017 ASSAY OF FREE THYROXINE CPT-4: 74714 06/27/2017 ASSAY THYROID STIM HORMONE CPT-4: 75857 06/27/2017 COMPREHEN METABOLIC PANEL CPT-4: 21371 06/27/2017 COMPLETE CBC W/AUTO DIFF WBC CPT-4: 05769 06/27/2017 EXC TR-EXT B9+REECE 0.5 CM< CPT-4: 65329 01/24/2017 THER/PROPH/DIAG INJ SC/IM CPT-4: 36475 08/02/2016 DEXAMETHASONE SODIUM PHOS CPT-4: J1100 08/02/2016 DESTRUCT PREMALG LESION (Cryosurgery) CPT-4: 60483 EXC TR-EXT B9+REECE 0.5 CM< CPT-4: 36330 08/01/2016 AEROBIC WOUND CULTURE & STN CPT-4: 86713 07/06/2016 CEFTRIAXONE SODIUM INJECTION CPT-4: J0696 05/25/2016 THER/PROPH/DIAG INJ SC/IM CPT-4: 54673 05/25/2016 THER/PROPH/DIAG INJ SC/IM CPT-4: 46748 04/26/2016 DEXAMETHASONE SODIUM PHOS CPT-4: J1100 04/26/2016 CEFTRIAXONE SODIUM INJECTION CPT-4: J0696 04/26/2016 THER/PROPH/DIAG INJ SC/IM CPT-4: 20463 04/26/2016 THER/PROPH/DIAG INJ SC/IM CPT-4: 93828 02/09/2016 TRIAMCINOLONE ACET INJ NOS CPT-4: J3301 02/09/2016 URINALYSIS NONAUTO W/O SCOPE CPT-4: 05429 01/24/2016 URINE CULTURE/ COLONY COUNT CPT-4: 81776 01/24/2016 THER/PROPH/DIAG INJ SC/IM CPT-4: 98130 12/08/2015 TRIAMCINOLONE ACET INJ NOS CPT-4: J3301 12/08/2015 THER/PROPH/DIAG INJ SC/IM CPT-4: 32893 10/07/2015 TRIAMCINOLONE ACET INJ NOS CPT-4: J3301 10/07/2015 DESTRUCT PREMALG LESION (Cryosurgery) CPT-4: 31360 THER/PROPH/DIAG INJ SC/IM CPT-4: 32104 03/16/2015 METHYLPREDNISOLONE 40 MG INJ CPT-4: J1030 03/16/2015 DESTRUCT PREMALG LESION (Cryosurgery) CPT-4: 65579 THER/PROPH/DIAG INJ SC/IM CPT-4: 83323 09/11/2014 METHYLPREDNISOLONE 40 MG INJ CPT-4: J1030 09/11/2014 TRIAMCINOLONE ACET INJ NOS CPT-4: J3301 09/11/2014 CEFTRIAXONE SODIUM INJECTION CPT-4: J0696 09/11/2014 THER/PROPH/DIAG INJ SC/IM CPT-4: 92515 09/11/2014 ROUTINE VENIPUNCTURE CPT-4: 40860 08/27/2014 COMPREHEN METABOLIC PANEL CPT-4: 48184 08/27/2014 COMPLETE CBC W/AUTO DIFF WBC CPT-4: 22235 08/27/2014 LIPID PANEL CPT-4: 53497 08/27/2014 ROUTINE VENIPUNCTURE CPT-4: 33590 07/21/2014 ASSAY OF AMYLASE CPT-4: 79019 07/21/2014 ASSAY OF LIPASE CPT-4: 44671 07/21/2014 THER/PROPH/DIAG INJ SC/IM CPT-4: 96293 07/15/2014 TRIAMCINOLONE ACET INJ NOS CPT-4: J3301 07/15/2014 ROUTINE VENIPUNCTURE CPT-4: 16795 05/14/2014 ASSAY OF FREE THYROXINE CPT-4: 82958 05/14/2014 ASSAY THYROID STIM HORMONE CPT-4: 76102 05/14/2014 COMPREHEN METABOLIC PANEL CPT-4: 43157 05/14/2014 COMPLETE CBC W/AUTO DIFF WBC CPT-4: 41509 05/14/2014 LIPID PANEL CPT-4: 35789 05/14/2014 CEFTRIAXONE SODIUM INJECTION CPT-4: J0696 04/21/2014 THER/PROPH/DIAG INJ SC/IM CPT-4: 44826 04/21/2014 THER/PROPH/DIAG INJ SC/IM CPT-4: 79074 04/21/2014 TRIAMCINOLONE ACET INJ NOS CPT-4: J3301 04/21/2014 THER/PROPH/DIAG INJ SC/IM CPT-4: 98226 03/04/2014 METHYLPREDNISOLONE 40 MG INJ CPT-4: J1030 03/04/2014 TRIAMCINOLONE ACET INJ NOS CPT-4: J3301 03/04/2014 CEFTRIAXONE SODIUM INJECTION CPT-4: J0696 03/04/2014 THER/PROPH/DIAG INJ SC/IM CPT-4: 71003 03/04/2014 TDAP VACCINE 7 YRS/> IM CPT-4: 85637 02/27/2014 IMMUNIZATION ADMIN CPT-4: 08856 02/27/2014 DESTRUCT PREMALG LESION (Cryosurgery) CPT-4: 22739 DESTRUCT PREMALG LES 2-14 CPT-4: 50432 01/13/2014 THER/PROPH/DIAG INJ SC/IM CPT-4: 93181 10/21/2013 METHYLPREDNISOLONE 40 MG INJ CPT-4: J1030 10/21/2013 TRIAMCINOLONE ACET INJ NOS CPT-4: J3301 10/21/2013 CEFTRIAXONE SODIUM INJECTION CPT-4: J0696 08/27/2013 THER/PROPH/DIAG INJ SC/IM CPT-4: 72769 08/27/2013 THER/PROPH/DIAG INJ SC/IM CPT-4: 85067 08/27/2013 METHYLPREDNISOLONE 40 MG INJ CPT-4: J1030 08/27/2013 TRIAMCINOLONE ACET INJ NOS CPT-4: J3301 08/27/2013 THER/PROPH/DIAG INJ SC/IM CPT-4: 49226 06/23/2013 METHYLPREDNISOLONE 40 MG INJ CPT-4: J1030 06/23/2013 TRIAMCINOLONE ACET INJ NOS CPT-4: J3301 06/23/2013 THER/PROPH/DIAG INJ SC/IM CPT-4: 36463 05/26/2013 METHYLPREDNISOLONE 40 MG INJ CPT-4: J1030 05/26/2013 TRIAMCINOLONE ACET INJ NOS CPT-4: J3301 05/26/2013 ROUTINE VENIPUNCTURE CPT-4: 21341 03/05/2013 ASSAY OF FREE THYROXINE CPT-4: 41440 03/05/2013 ASSAY THYROID STIM HORMONE CPT-4: 24931 03/05/2013 COMPREHEN METABOLIC PANEL CPT-4: 16511 03/05/2013 COMPLETE CBC W/AUTO DIFF WBC CPT-4: 90905 03/05/2013 A1C GLYCOSYLATED HEMOGLOBIN TEST CPT-4: 39908 013 DRAIN/INJECT JOINT/BURSA CPT-4: 48991 12/04/2012 METHYLPREDNISOLONE 40 MG INJ CPT-4: J1030 12/04/2012 TRIAMCINOLONE ACET INJ NOS CPT-4: J3301 12/04/2012 CEFTRIAXONE SODIUM INJECTION CPT-4: J0696 11/21/2012 THER/PROPH/DIAG INJ SC/IM CPT-4: 98499 11/21/2012 THER/PROPH/DIAG INJ SC/IM CPT-4: 41664 10/14/2012 METHYLPREDNISOLONE 40 MG INJ CPT-4: J1030 10/14/2012 TRIAMCINOLONE ACET INJ NOS CPT-4: J3301 10/14/2012 URINALYSIS NONAUTO W/O SCOPE CPT-4: 65920 09/27/2012 ROUTINE VENIPUNCTURE CPT-4: 04304 09/25/2012 ASSAY OF FREE THYROXINE CPT-4: 21046 09/25/2012 ASSAY THYROID STIM HORMONE CPT-4: 97354 09/25/2012 COMPREHEN METABOLIC PANEL CPT-4: 25201 09/25/2012 COMPLETE CBC W/AUTO DIFF WBC CPT-4: 84223 09/25/2012 C-REACTIVE PROTEIN CPT-4: 43734 09/25/2012 THER/PROPH/DIAG INJ SC/IM CPT-4: 33713 08/29/2012 METHYLPREDNISOLONE 40 MG INJ CPT-4: J1030 08/29/2012 TRIAMCINOLONE ACET INJ NOS CPT-4: J3301 08/29/2012 DESTRUCT PREMALG LESION (Cryosurgery) CPT-4: 32269 THER/PROPH/DIAG INJ SC/IM CPT-4: 01099 05/06/2012 METHYLPREDNISOLONE 40 MG INJ CPT-4: J1030 05/06/2012 TRIAMCINOLONE ACET INJ NOS CPT-4: J3301 05/06/2012 VITAMIN B 12 FOLIC ACID CPT-4: 73312|57845 05/06/2012 RBC SED RATE AUTOMATED CPT-4: 07921 05/06/2012 ROUTINE VENIPUNCTURE CPT-4: 06293 05/06/2012 ASSAY OF FREE THYROXINE CPT-4: 77918 05/06/2012 ASSAY THYROID STIM HORMONE CPT-4: 61943 05/06/2012 COMPREHEN METABOLIC PANEL CPT-4: 61501 05/06/2012 COMPLETE CBC W/AUTO DIFF WBC CPT-4: 57364 05/06/2012 ASSAY OF BLOOD/URIC ACID CPT-4: 28573 05/06/2012 THER/PROPH/DIAG INJ SC/IM CPT-4: 21021 03/19/2012 KETOROLAC TROMETHAMINE INJ CPT-4: J1885 03/19/2012 KETOROLAC TROMETHAMINE INJ CPT-4: J1885 01/30/2012 THER/PROPH/DIAG INJ SC/IM CPT-4: 79281 01/30/2012 PROMETHAZINE HCL INJECTION CPT-4: J2550 01/30/2012 THER/PROPH/DIAG INJ SC/IM CPT-4: 22061 01/24/2012 METHYLPREDNISOLONE 40 MG INJ CPT-4: J1030 01/24/2012 TRIAMCINOLONE ACET INJ NOS CPT-4: J3301 01/24/2012 THER/PROPH/DIAG INJ SC/IM CPT-4: 19127 09/13/2011 KETOROLAC TROMETHAMINE INJ CPT-4: J1885 09/13/2011 THER/PROPH/DIAG INJ SC/IM CPT-4: 47113 09/13/2011 PROMETHAZINE HCL INJECTION CPT-4: J2550 09/13/2011 CEFTRIAXONE SODIUM INJECTION CPT-4: J0696 07/20/2011 THER/PROPH/DIAG INJ SC/IM CPT-4: 43836 07/20/2011 THER/PROPH/DIAG INJ SC/IM CPT-4: 85263 07/20/2011 METHYLPREDNISOLONE INJECTION CPT-4: J2930 07/20/2011 URINALYSIS NONAUTO W/O SCOPE CPT-4: 70535 05/09/2011 CEFTRIAXONE SODIUM INJECTION CPT-4: J0696 05/09/2011 THER/PROPH/DIAG INJ SC/IM CPT-4: 76864 05/09/2011 THER/PROPH/DIAG INJ SC/IM CPT-4: 12712 05/09/2011 PROMETHAZINE HCL INJECTION CPT-4: J2550 05/09/2011 HYDRATION IV INFUSION INIT CPT-4: 30142 05/09/2011 DESTRUCT PREMALG LESION (Cryosurgery) CPT-4: 06004 DESTRUCT PREMALG LES 2-14 CPT-4: 72410 07/19/2010 REMOVAL OF SKIN TAGS <W/15 CPT-4: 81799 05/30/2010 THER/PROPH/DIAG INJ SC/IM CPT-4: 78457 04/05/2010 CEFTRIAXONE SODIUM INJECTION CPT-4: J0696 04/05/2010 TRIAMCINOLONE ACET INJ NOS CPT-4: J3301 04/05/2010 METHYLPREDNISOLONE 40 MG INJ CPT-4: J1030 04/05/2010 THER/PROPH/DIAG INJ SC/IM CPT-4: 34025 04/05/2010 TRIAMCINOLONE ACET INJ NOS CPT-4: J3301 03/09/2010 METHYLPREDNISOLONE 40 MG INJ CPT-4: J1030 03/09/2010 THER/PROPH/DIAG INJ SC/IM CPT-4: 41967 03/09/2010 THER/PROPH/DIAG INJ SC/IM CPT-4: 28055 03/09/2010 CEFTRIAXONE SODIUM INJECTION CPT-4: J0696 03/09/2010 [...] 1: 132/80 Code: 8480-6 BMI: 35.8 Code: 58606-5 Heart Rate 1: 88 bpm Height: 5'4" Respiratory Rate: 20 bpm SpO2: 95% Tempera ture: 36.9 (C) / 98.5 (F) Weight: 210 lbs 05/28/2019 Blood Pressure 1: 126/82 Code: 8480-6 BMI: 35.0 Code: 19875-2 Heart Rate 1: 88 bpm Height: 5'4" [...] 1: 128/90 Code: 8480-6 BMI: 37.2 Code: 42337-2 Heart Rate 1: 84 bpm Height: 5'4" Respiratory Rate: 20 bpm SpO2: 95% Tempera ture: 36.6 (C) / 97.8 (F) Weight: 217 lbs 08/27/2018 Blood Pressure 1: 128/88 Code: 8480-6 BMI: 38.3 Code: 30247-7 Heart Rate 1: 84 bpm Height: 5'4" [...] 1: 119/72 Code: 8480-6 BMI: 37.4 Code: 36684-2 Heart Rate 1: 82 bpm Height: 5'4" Respiratory Rate: 12 bpm SpO2: 94% Tempera ture: 35.2 (C) / 95.4 (F) Weight: 218 lbs 12/18/2017 Blood Pressure 1: 128/86 Code: 8480-6 BMI: 37.8 Code: 37608-4 Heart Rate 1: 84 bpm Height: 5'4" [...] 1: 128/82 Code: 8480-6 BMI: 35.5 Code: 32020-9 Heart Rate 1: 84 bpm Height: 5'4" [...] 1: 128/82 Code: 8480-6 BMI: 30.2 Code: 10461-4 Heart Rate 1: 80 bpm Height: 5'4" [...] 1: 128/86 Code: 8480-6 BMI: 32.8 Code: 76721-7 Heart Rate 1: 66 bpm Height: 5'4" Respiratory Rate: 18 bpm Temperature: 36 .3 (C) / 97.3 (F) Weight: 191 lbs 06/23/2013 Blood Pressure 1: 132/94 Code: 8480-6 BMI: 34.0 Code: 51083-1 Heart Rate 1: 84 bpm Height: 5'4" Respiratory Rate: 20 bpm Temperature: 36 .8 (C) / 98.2 (F) Weight: 198 lbs 05/26/2013 Blood Pressure 1: 114/80 Code: 8480-6 BMI: 35.0 Code: 38489-0 Heart Rate 1: 80 bpm Height: 5'4" Respiratory Rate: 20 bpm Temperature: 36 .4 (C) / 97.6 (F) Weight: 204 lbs 04/16/2013 Blood Pressure 1: 114/82 Code: 8480-6 BMI: 36.7 Code: 19409-4 Heart Rate 1: 84 bpm Height: 5'4" Respiratory Rate: 20 bpm Temperature: 36 .7 (C) / 98.0 (F) Weight: 214 lbs 03/05/2013 Blood Pressure 1: 136/90 Code: 8480-6 BMI: 37.1 Code: 49099-8 Heart Rate 1: 84 bpm Height: 5'4" [...] 1: 168/114 Code: 8480-6 BMI: 36.2 Code: 27577-6 Heart Rate 1: 104 bpm Height: 5'4" Respiratory Rate: 20 bpm Temperature: 36 .8 (C) / 98.2 (F) Weight: 211 lbs 11/22/2012 Blood Pressure 1: 128/90 Code: 8480-6 Heart Rate 1: 88 bpm Respiratory Rate: 20 bpm SpO2: 96% Temperature: 36.8 (C) / 98.2 (F) 11/21/2012 Blood Pressure 1: 146/100 Code: 8480-6 BMI: 35.7 Code: 87487-6 Heart Rate 1: 96 bpm Height: 5'4" [...] 1: 138/100 Code: 8480-6 BMI: 35.7 Code: 00643-3 Heart Rate 1: 96 bpm Height: 5'4" Respiratory Rate: 20 bpm Temperature: 36 .8 (C) / 98.2 (F) Weight: 208 lbs 05/06/2012 Blood Pressure 1: 154/102 Code: 8480-6 BMI: 34.7 Code: 76683-2 Heart Rate 1: 116 bpm Height: 5'4" Respiratory Rate: 20 bpm Temperature: 36 .8 (C) / 98.2 (F) Weight: 202 lbs 04/03/2012 Blood Pressure 1: 134/94 Code: 8480-6 BMI: 34.8 Code: 59841-3 Heart Rate 1: 108 bpm Height: 5'4" Respiratory Rate: 20 bpm Temperature: 36 .8 (C) / 98.2 (F) Weight: 203 lbs 03/19/2012 Blood Pressure 1: 148/106 Code: 8480-6 BMI: 35.0 Code: 33387-2 Heart Rate 1: 100 bpm Height: 5'4" Respiratory Rate: 20 bpm Temperature: 36 .6 (C) / 97.9 (F) Weight: 204 lbs 02/22/2012 Blood Pressure 1: 146/94 Code: 8480-6 He art Rate 1: 88 bpm 02/21/2012 Blood Pressure 1: 172/120 Code: 8480-6 B lood Pressure 2: 152/106 Code: 8480-6 Heart Rate 1: 116 bpm 02/20/2012 Blood Pressure 1: 160/100 Code: 8480-6 BMI: 32.0 Code: 45397-7 Heart Rate 1: 84 bpm Height: 5'7" Temperature: 36.5 (C) / 97.7 (F) Weight: 204 lbs 01/30/2012 Blood Pressure 1: 152/110 Code: 8480-6 BMI: 32.0 Code: 75244-1 Heart Rate 1: 116 bpm Height: 5'7" Respiratory Rate: 20 bpm Temperature: 37 .0 (C) / 98.6 (F) Weight: 204 lbs 01/24/2012 Blood Pressure 1: 146/100 Code: 8480-6 BMI: 32.0 Code: 92872-3 Heart Rate 1: 100 bpm Height: 5'7" Respiratory Rate: 20 bpm Temperature: 36 .7 (C) / 98.0 (F) Weight: 204 lbs 01/10/2012 Blood Pressure 1: 156/94 Code: 8480-6 BMI: 32.6 Code: 71313-5 Heart Rate 1: 72 bpm Height: 5'7" Respiratory Rate: 20 bpm Temperature: 36 .8 (C) / 98.2 (F) Weight: 208 lbs 12/11/2011 Blood Pressure 1: 146/100 Code: 8480-6 Heart Rat e 1: 116 bpm Height: 5'7" Respiratory Rate: 20 bpm Temperature: 36.9 (C) / 98.4 (F) We ight: 11/09/2011 Blood Pressure 1: 148/96 Code: 8480-6 BMI: 32.1 Code: 46933-8 Heart Rate 1: 116 bpm Height: 5'7" Respiratory Rate: 20 bpm Temperature: 36 .7 (C) / 98.0 (F) Weight: 205 lbs 09/13/2011 Blood Pressure 1: 126/88 Code: 8480-6 Heart Rate 1: 88 bpm Height: 5'7" Respiratory Rate: 20 bpm Temperature: 36.9 (C) / 98.4 (F) We ight: 08/31/2011 Blood Pressure 1: 118/82 Code: 8480-6 BMI: 32.0 Code: 85802-8 Heart Rate 1: 80 bpm Height: 5'7" Temperature: 36.4 (C) / 97.6 (F) Weight: 204 lbs 07/06/2011 Blood Pressure 1: 128/86 Code: 8480-6 BMI: 30.9 Code: 27198-4 Heart Rate 1: 92 bpm Height: 5'7" Respiratory Rate: 20 bpm Temperature: 36 .9 (C) / 98.4 (F) Weight: 197 lbs 06/06/2011 Blood Pressure 1: 112/74 Code: 8480-6 BMI: 31.0 Code: 42837-9 Heart Rate 1: 72 bpm Height: 5'7" [...] 1: 128/92 Code: 8480-6 BMI: 33.6 Code: 40056-6 Heart Rate 1: 104 bpm Height: 5'4" [...] insomnia 01/24/2016 cough 12/23/2015 patient is requestsudarshan velez rocephin and steroid injection chest congestion [...] with hyperglycemia[ICD10: E11.65] María Elena APPIAH [facility] CPT-4: 21242 11/20/2019 ([id number]) OFFICE/OUTPATIENT VISIT EST Diagnosis: Ingrowing nail[ICD10: L60.0] Diagnosis: Type 2 diabetes mellitus with hyperglycemia[ICD10: E11.65] Kathleen APPIAH DO [facility] CPT-4: 38873 10/07/2019 ([id number]) OFFICE/OUTPATIENT VISIT EST Diagnosis: DM w/o complication type II, uncontrolled[ICD10: E11.65] Diagnosis: Hypertriglyceridemia[ICD10: E78.1] Diagnosis: Essential hypertension[ICD10: I10] María Elena BASURTO TED APPIAH DO [facility] CPT-4: 27954 09/30/2019 ([id number]) NURSE/OUTPATIENT VISIT EST Diagnosis: Essential (primary) hypertension[ICD10: I10] Diagnosis: Cervicalgia[ICD10: M54.2] Diagnosis: Hyperglycemia, unspecified[ICD10: R73.9] Diagnosis: Mixed hyperlipidemia[ICD10: E78.2] María Elena BASURTO TED APPIAH [employer] [facility] CPT-4: 46310 09/29/2019 ([id number]) OFFICE/OUTPATIENT VISIT EST Diagnosis: Essential (primary) hypertension[ICD10: I10] Diagnosis: Fall from bed, sequela[ICD10: W06.XXXS] María Elena Appiah KYLAH BRAUNGAEL Fabiola APPIAH [facility] [facility] CPT-4: 71031 05/28/2019 ([id number]) NURSE/OUTPATIENT VISIT EST Diagnosis: Essential (primary) hypertension[ICD10: I10] María Elenagael Appiah MARÍA ELENA APPIAH DO [facility] CPT-4: 54757 05/19/2019 ([id number]) OFFICE/OUTPATIENT VISIT EST Diagnosis: Essential (primary) hypertension[ICD10: I10] Diagnosis: Type 2 diabetes mellitus with hyperglycemia[ICD10: E11.65] Diagnosis: Intervertebral disc disorders with radiculopathy, 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] Diagnosis: Hormone replacement therapy[ICD10: Z79.890] María Elenagael Appiah MARÍA ELENA Fabiola APPIAH DO [facility] CPT-4: 16538 01/22/2019 ([id number]) OFFICE/OUTPATIENT VISIT EST Diagnosis: Essential (primary) hypertension[ICD10: I10] Diagnosis: Type 2 diabetes mellitus with hyperglycemia[ICD10: E11.65] María Elena MONTEROQUELINE Fabiola APPIAH [facility] [facility] CPT-4: 28514 09/30/2018 ([id number]) OFFICE/OUTPATIENT VISIT EST Diagnosis: Pain in left elbow[ICD10: M25.522] Diagnosis: Acute stress reaction[ICD10: F43.0] Diagnosis: Primary insomnia[ICD10: F51.01] Diagnosis: Abnormal weight gain[ICD10: R63.5] María Elena APPIAH [employer] [facility] CPT-4: 89529 08/27/2018 ([id number]) OFFICE/OUTPATIENT VISIT EST Diagnosis: Acute recurrent sinusitis, unspecified[ICD10: J01.91] Diagnosis: Follicular disorder, unspecified[ICD10: L73.9] Diagnosis: Tinea corporis[ICD10: B35.4] María Elena APPIAH [facility] CPT-4: 72956 08/09/2018 ([id number]) OFFICE/OUTPATIENT VISIT EST Diagnosis: Tinea corporis[ICD10: B35.4] Diagnosis: Anxiety disorder, unspecified[ICD10: F41.9] Diagnosis: Menopausal and female climacteric states[ICD10: N95.1] María Elena APPIAH [facility] [facility] CPT-4: 46525 07/22/2018 ([id number]) NURSE/OUTPATIENT VISIT EST Diagnosis: Cellulitis of right toe[ICD10: L03.031] María Elena APPIAH [facility] CPT-4: 67740 06/19/2018 ([id number]) OFFICE/OUTPATIENT VISIT EST Diagnosis: Cellulitis of right toe[ICD10: L03.031] Kathleen APPIAH [facility] [facility] CPT-4: 98177 06/17/2018 ([id number]) OFFICE/OUTPATIENT VISIT EST Diagnosis: Migraine without aura, intractable, without status migrainosus[ICD10: G43.019] Diagnosis: Zoster without complications[ICD10: B02.9] Kathleen APPIAH DO [facility] CPT-4: 29198 05/16/2018 ([id number]) OFFICE/OUTPATIENT VISIT EST Diagnosis: Cellulitis of right lower limb[ICD10: L03.115] Kathleen APPIAH [facility] CPT-4: 19145 03/20/2018 ([id number]) OFFICE/OUTPATIENT VISIT EST Diagnosis: Cellulitis of right lower limb[ICD10: L03.115] Kathleen APPIAH DO [facility] CPT-4: 32607 03/18/2018 ([id number]) OFFICE/OUTPATIENT VISIT EST Diagnosis: Cellulitis of right lower limb[ICD10: L03.115] Kathleen APPIAH DO [facility] CPT-4: 48630 03/15/2018 ([id number]) OFFICE/OUTPATIENT VISIT EST Diagnosis: Acute sinusitis, unspecified[ICD10: J01.90] Kathleen APPIAH DO [facility] CPT-4: 77093 02/11/2018 ([id number]) NURSE/OUTPATIENT VISIT EST Diagnosis: Otitis media, unspecified, right ear[ICD10: H66.91] María Elena APPIAH DO [facility] CPT-4: 09191 02/01/2018 ([id number]) OFFICE/OUTPATIENT VISIT EST Diagnosis: Acute suppurative otitis media without spontaneous rupture of ear drum, left ear[ICD10: H66.002] Diagnosis: Abnormal weight gain[ICD10: R63.5] Diagnosis: Intervertebral disc disorders with radiculopathy, 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] Kathleen APPIAH DO [facility] CPT-4: 99 214 01/30/2018 ([id number]) PREV VISIT EST AGE 40-64 Diagnosis: Encounter for general adult medical examination without abnormal findings[ICD10: Z00.00] Diagnosis: Essential (primary) hypertension[ICD10: I10] Diagnosis: Mixed hyperlipidemia[ICD10: E78.2] Diagnosis: Type 2 diabetes mellitus with hyperglycemia[ICD10: E11.65] Diagnosis: 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] María Elena APPIAH DO [facility] CPT-4: 78753 12/18/2017 ([id number]) OFFICE/OUTPATIENT VISIT EST Diagnosis: Cellulitis of right toe[ICD10: L03.031] Diagnosis: Mixed hyperlipidemia[ICD10: E78.2] Diagnosis: Essential (primary) hypertension[ICD10: I10] Diagnosis: Hyperglycemia, unspecified[ICD10: R73.9] Diagnosis: Nontoxic goiter, 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] María Elena APPIAH DO [facility] CPT-4: 01216 12/10/2017 ([id number]) OFFICE/OUTPATIENT VISIT EST Diagnosis: Cellulitis of right toe[ICD10: L03.031] Diagnosis: Acute sinusitis, unspecified[ICD10: J01.90] Kathleen APPIAH DO [facility] CPT-4: 35408 12/07/2017 OFFICE/OUTPATIENT VISIT EST Diagnosis: Acute maxillary sinusitis, unspecified[ICD10: J01.00] Kathleen APPIAH DO [facility] CPT-4: 51379 10/08/2017 ([id number]) OFFICE/OUTPATIENT VISIT EST Diagnosis: Cellulitis of left toe[ICD10: L03.032] María Elena APPIAH [facility] CPT-4: 05215 09/21/2017 ([id number]) OFFICE/OUTPATIENT VISIT EST Diagnosis: Insomnia, unspecified[ICD10: G47.00] Diagnosis: Major depressive disorder, single episode, unspecified[ICD10: F32.9] Diagnosis: Anxiety disorder, unspecified[ICD10: F41.9] Diagnosis: Cellulitis of left toe[ICD10: L03.032] Diagnosis: Snoring[ICD10: R06.83] Kathleen APPIAH DO [facility] CPT-4: 48522 09/20/2017 ([id number]) OFFICE/OUTPATIENT VISIT EST Diagnosis: Cellulitis of left toe[ICD10: L03.032] María Elena APPIAH DO [facility] CPT-4: 38437 07/19/2017 OFFICE/OUTPATIENT VISIT EST Diagnosis: Chronic sinusitis, unspecified[ICD10: J32.9] Diagnosis: Generalized hyperhidrosis[ICD10: R61] Kathleen APPIAH DO [facility] CPT-4: 59820 06/27/2017 ([id number]) OFFICE/OUTPATIENT VISIT EST Diagnosis: Intervertebral disc disorders with radiculopathy, 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] Diagnosis: Primary insomnia[ICD10: F51.01] Diagnosis: Other fatigue[ICD10: R53.83] María Elena APPIAH DO [employer] CPT-4: 15605 04/10/2017 ([id number]) OFFICE/OUTPATIENT VISIT EST Diagnosis: Primary insomnia[ICD10: F51.01] Diagnosis: Localized edema[ICD10: R60.0] Diagnosis: 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] María Elena APPIAH DO [employer] CPT-4: 07554 12/13/2016 ([id number]) OFFICE/OUTPATIENT VISIT EST Diagnosis: Primary insomnia[ICD10: F51.01] Diagnosis: Cyanosis[ICD10: R23.0] María Elena [facility]az[facility] CPT-4: 21406 11/01/2016 ([id number]) PREV VISIT EST AGE 40-64 Diagnosis: Encounter for gynecological examination (general) (routine) without abnormal findings[ICD10: Z01.419] Diagnosis: Encounter for routine child health examination without abnormal findings[ICD10: Z00.129] María Elena APPIAH [facility] CPT-4: 31118 10/17/2016 ([id number]) OFFICE/OUTPATIENT VISIT EST Diagnosis: Other seasonal allergic rhinitis[ICD10: J30.2] María Elena APPIAH [facility] CPT-4: 57758 10/10/2016 ([id number]) OFFICE/OUTPATIENT VISIT EST Diagnosis: Pain in left arm[ICD10: M79.602] Diagnosis: Contact with and (suspected) exposure to potentially hazardous body fluids[ICD10: Z77.21] Diagnosis: 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, 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] Diagnosis: Unspecified open wound, right foot, sequela[ICD10: S91.301S] María Elena APPIAH [facility] CPT-4: 37840 09/19/2016 ([id number]) OFFICE/OUTPATIENT VISIT EST Diagnosis: Chronic sinusitis, unspecified[ICD10: J32.9] Diagnosis: Allergic rhinitis due to pollen[ICD10: J30.1] María Elena APPIAH [employer] [facility] CPT-4: 70647 08/24/2016 ([id number]) OFFICE/OUTPATIENT VISIT EST Diagnosis: Acute bronchitis, unspecified[ICD10: J20.9] María Elena APPIAH DO [facility] CPT-4: 15881 08/16/2016 ([id number]) OFFICE/OUTPATIENT VISIT EST Diagnosis: Otitis media, unspecified, right ear[ICD10: H66.91] Diagnosis: Acute bronchitis, unspecified[ICD10: J20.9] María Elena APPIAH [employer] [facility] CPT-4: 92369 08/10/2016 ([id number]) OFFICE/OUTPATIENT VISIT EST Diagnosis: Acute recurrent sinusitis, unspecified[ICD10: J01.91] Diagnosis: Allergic rhinitis due to pollen[ICD10: J30.1] María Elena APPIAH [employer] [facility] CPT-4: 30864 08/02/2016 ([id number]) OFFICE/OUTPATIENT VISIT EST Diagnosis: Pain in unspecified joint[ICD10: M25.50] María Elena APPIAH [employer] [facility] CPT-4: 36349 07/27/2016 OFFICE/OUTPATIENT VISIT EST Diagnosis: 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] Diagnosis: Acute recurrent sinusitis, unspecified[ICD10: J01.91] Diagnosis: Other fatigue[ICD10: R53.83] Diagnosis: Primary insomnia[ICD10: F51.01] Diagnosis: Pain in unspecified joint[ICD10: M25.50] María Elena APPIAH [employer] [facility] CPT-4: 38061 07/20/2016 ([id number]) OFFICE/OUTPATIENT VISIT EST Diagnosis: Blister (nonthermal), left great toe, initial encounter[ICD10: S90.422A] Loan Sánchez MARÍA ELENA APPIAH [employer] [place] [facility] CPT-4: 85724 ([id number]) OFFICE/OUTPATIENT VISIT EST Diagnosis: Acute recurrent sinusitis, unspecified[ICD10: J01.91] María Elena APPIAH DO [facility] CPT-4: 85866 05/25/2016 ([id number]) OFFICE/OUTPATIENT VISIT EST Diagnosis: Acute sinusitis, unspecified[ICD10: J01.90] María Elena APPIAH DO [facility] CPT-4: 98720 04/26/2016 ([id number]) OFFICE/OUTPATIENT VISIT EST Diagnosis: Flushing[ICD10: R23.2] Diagnosis: Primary insomnia[ICD10: F51.01] María Elena APPIAH DO [facility] CPT-4: 85947 03/02/2016 ([id number]) OFFICE/OUTPATIENT VISIT EST Diagnosis: Other seasonal allergic rhinitis[ICD10: J30.2] Loan APPIAH DO [facility] CPT-4: 08709 02/09/2016 ([id number]) OFFICE/OUTPATIENT VISIT EST Diagnosis: Primary insomnia[ICD10: F51.01] Diagnosis: Urinary tract infection, site not specified[ICD10: N39.0] María Elena APPIAH DO [facility] CPT-4: 16336 01/24/2016 ([id number]) OFFICE/OUTPATIENT VISIT EST Diagnosis: Other specified disorders of Eustachian tube, bilateral[ICD10: H69.83] Diagnosis: Allergic rhinitis, unspecified[ICD10: J30.9] Loan APPIAH DO [facility] CPT-4: 94098 12/23/2015 ([id number]) OFFICE/OUTPATIENT VISIT EST Diagnosis: Acute recurrent sinusitis, unspecified[ICD10: J01.91] Diagnosis: 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] Diagnosis: Allergic rhinitis, unspecified[ICD10: J30.9] María Elena APPIAH DO [facility] CPT-4: 23326 12/08/2015 ([id number]) OFFICE/OUTPATIENT VISIT EST Diagnosis: Allergic rhinitis, unspecified[ICD10: J30.9] Diagnosis: Pain in unspecified joint[ICD10: M25.50] María Elena APPIAH DO [facility] CPT-4: 63276 10/07/2015 ([id number]) OFFICE/OUTPATIENT VISIT EST Diagnosis: Essential (primary) hypertension[ICD10: I10] María Elena APPIAH DO [facility] CPT-4: 35519 10/06/2015 OFFICE/OUTPATIENT VISIT EST Diagnosis: Localized enlarged lymph nodes[ICD10: R59.0] Diagnosis: Local infection of the skin and subcutaneous tissue, unspecified[ICD10: L08.9] June APPIAH DO [facility] CPT- 4: 60431 09/14/2015 ([id number]) OFFICE/OUTPATIENT VISIT EST Diagnosis: Essential (primary) hypertension[ICD10: I10] Diagnosis: Actinic keratosis[ICD10: L57.0] María Elena APPIAH DO [facility] CPT-4: 48041 09/07/2015 ([id number]) OFFICE/OUTPATIENT VISIT EST Diagnosis: Essential (primary) hypertension[ICD10: I10] Diagnosis: Acute stress reaction[ICD10: F43.0] María Elena APPIAH DO [facility] CPT-4: 43408 08/18/2015 ([id number]) OFFICE/OUTPATIENT VISIT EST Diagnosis: Essential (primary) hypertension[ICD10: I10] María Elena APPIAH DO [facility] CPT-4: 51917 07/07/2015 ([id number]) OFFICE/OUTPATIENT VISIT EST Diagnosis: Essential (primary) hypertension[ICD10: I10] María Elena APPIAH DO [facility] CPT-4: 93541 06/24/2015 ([id number]) OFFICE/OUTPATIENT VISIT EST Diagnosis: Essential (primary) hypertension[ICD10: I10] María Elena APPIAH DO [facility] CPT-4: 85579 06/21/2015 ([id number]) OFFICE/OUTPATIENT VISIT EST Diagnosis: Essential (primary) hypertension[ICD10: I10] Diagnosis: Mixed hyperlipidemia[ICD10: E78.2] Diagnosis: Acute stress reaction[ICD10: F43.0] Diagnosis: Primary insomnia[ICD10: F51.01] María Elena APPIAH DO [facility] CPT-4: 26432 06/16/2015 ([id number]) OFFICE/OUTPATIENT VISIT EST Diagnosis: INSOMNIA NOS[ICD9: 780.52] Diagnosis: HYPERTENSION[ICD9: 401.9] Diagnosis: Stress reaction[ICD9: 308.9] María Elena APPIAH DO [facility] CPT-4: 71388 06/02/2015 ([id number]) OFFICE/OUTPATIENT VISIT EST Diagnosis: HYPERTENSION[ICD9: 401.9] Diagnosis: Stress reaction[ICD9: 308.9] María Elena APPIAH DO [facility] CPT-4: 81153 05/20/2015 ([id number]) OFFICE/OUTPATIENT VISIT EST Diagnosis: Skin lesion[ICD9: 709.9] 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 TD [facility] CPT-4: 68356 08/31/2014 ([id number]) OFFICE/OUTPATIENT VISIT EST Diagnosis: - I - HYPERTENSION[ICD9: 401.9] Diagnosis: HYPERLIPIDEMIA NEC/NOS[ICD9: 272.4] María Elena ACUÑA DARLENE S. TD [facility] CPT-4: 84803 08/27/2014 ([id number]) OFFICE/OUTPATIENT VISIT EST Diagnosis: ABDOMINAL PAIN[ICD9: 789.00] Diagnosis: DYSPEPSIA[ICD9: 536.8] Diagnosis: Thoracic back pain[ICD9: 724.1] María Elena APPIAH DO [facility] CPT-4: 94142 07/21/2014 ([id number]) OFFICE/OUTPATIENT VISIT EST Diagnosis: ALLERGIC RHINITIS[ICD9: 477.9] María Elena APPIAH DO [facility] CPT-4: 42839 07/15/2014 ([id number]) OFFICE/OUTPATIENT VISIT EST Diagnosis: EDEMA[ICD9: 782.3] Diagnosis: Chronic insomnia[ICD9: 780.52] María Elena APPIAH [facility] CPT-4: 82172 05/18/2014 ([id number]) OFFICE/OUTPATIENT VISIT EST Diagnosis: Thyromegaly[ICD9: 240.9] Diagnosis: - I - HYPERTENSION[ICD9: 401.9] Diagnosis: ROUTINE MEDICAL EXAM[ICD9: V70.0] Diagnosis: EDEMA[ICD9: 782.3] María Elena APPIAH [facility] CPT-4: 52686 05/14/2014 OFFICE/OUTPATIENT VISIT EST Diagnosis: BRONCHITIS, ACUTE[ICD9: 466.0] Diagnosis: SINUSITIS, ACUTE[ICD9: 461.9] María Elena APPIAH [facility] CPT-4: 75054 04/21/2014 OFFICE/OUTPATIENT VISIT EST Diagnosis: SINUSITIS, ACUTE[ICD9: 461.9] June VanAlbertaelaere MARÍA ELENA APPIAH [facility] CPT-4: 44243 03/04/2014 ([id number]) OFFICE/OUTPATIENT VISIT EST Diagnosis: VACCINE FOR TDAP[ICD10: Z23] María Elena APPIAH [facility] CPT-4: 35163 02/27/2014 ([id number]) OFFICE/OUTPATIENT VISIT EST Diagnosis: Seborrheic keratoses, inflamed[ICD9: 702.11] Diagnosis: ACTINIC KERATOSIS[ICD9: 702.0] Diagnosis: INSOMNIA NOS[ICD9: 780.52] María Elena [facility] CPT-[facility]: 30325 01/13/2014 OFFICE/OUTPATIENT VISIT EST 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] Diagnosis: ALLERGIC RHINITIS[ICD9: 477.9] Diagnosis: Serous otitis media[ICD9: 381.4] María Elena [facility] CPT[facility]: 33300 12/24/2013 ([id number]) OFFICE/OUTPATIENT VISIT EST Diagnosis: SINUSITIS, ACUTE[ICD9: 461.9] Diagnosis: ALLERGIC RHINITIS[ICD9: 477.9] 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] María Elena [facility] CPT[facility]: 60482 11/12/2013 ([id number]) OFFICE/OUTPATIENT VISIT EST Diagnosis: ALLERGIC RHINITIS[ICD9: 477.9] Diagnosis: SINUSITIS, ACUTE[ICD9: 461.9] María Elena [facility] CPT[facility]: 18209 10/21/2013 ([id number]) OFFICE/OUTPATIENT VISIT EST Diagnosis: ASYMPTOMATIC VARICOSE VEINS[ICD9: 454.9] Diagnosis: INSOMNIA NOS[ICD9: 780.52] María Elena Valdes KRISTYN [facility] CPT-4: 51380 09/22/2013 OFFICE/OUTPATIENT VISIT EST Diagnosis: SINUSITIS, ACUTE[ICD9: 461.9] June Flores MARÍA ELENA [facility] CPT-[facility]: 04036 08/27/2013 ([id number]) OFFICE/OUTPATIENT VISIT EST Diagnosis: CEPHALGIA[ICD9: 784.0] Diagnosis: CEPHALGIA, TENSION[ICD9: 307.81] 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] María Elena [facility] CPT-[facility]: 44004 08/04/2013 ([id number]) OFFICE/OUTPATIENT VISIT EST Diagnosis: Cervicalgia[ICD9: 723.1] Diagnosis: SPASM OF MUSCLE[ICD9: 728.85] Diagnosis: CEPHALGIA, TENSION[ICD9: 307.81] María Elena Td [facility] C[facility]: 16884 07/23/2013 ([id number]) OFFICE/OUTPATIENT VISIT EST 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] Diagnosis: ALLERGIC RHINITIS[ICD9: 477.9] María Elena APPIAH DO [facility] CPT-4: 35309 06/23/2013 ([id number]) OFFICE/OUTPATIENT VISIT EST Diagnosis: ALLERGIC RHINITIS[ICD9: 477.9] Diagnosis: ACUTE SEROUS OTITIS MEDIA[ICD9: 381.01] 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] María Elena APPIAH DO [facility] CPT-4: 30293 05/26/2013 ([id number]) OFFICE/OUTPATIENT VISIT EST Diagnosis: HYPERTENSION[ICD9: 401.9] Diagnosis: EDEMA[ICD9: 782.3] Diagnosis: Serous otitis media[ICD9: 381.4] María Elena APPIAH [facility] CPT-4: 59991 04/16/2013 ([id number]) OFFICE/OUTPATIENT VISIT EST Diagnosis: SINUSITIS, ACUTE[ICD9: 461.9] Diagnosis: ALLERGIC RHINITIS[ICD9: 477.9] Diagnosis: EDEMA[ICD9: 782.3] Diagnosis: Thyromegaly[ICD9: 240.9] Diagnosis: MALAISE AND FATIGUE[ICD9: 780.79] María Elena APPIAH [facility] CPT-4: 77325 03/05/2013 ([id number]) OFFICE/OUTPATIENT VISIT EST Diagnosis: PAIN, LOWER BACK[ICD9: 724.2] Diagnosis: SPASM OF MUSCLE[ICD9: 728.85] María Elena APPIAH [facility] CPT-4: 06117 12/23/2012 OFFICE/OUTPATIENT VISIT EST Diagnosis: Low back pain[ICD9: 724.2] Lashawn Eckert MARÍA ELENA Fabiola [facility] CPT-4: 91660 12/16/2012 ([id number]) OFFICE/OUTPATIENT VISIT EST Diagnosis: PAIN, LOWER BACK[ICD9: 724.2] Diagnosis: SCIATICA[ICD9: 724.3] Diagnosis: Lumbar herniated disc[ICD9: 722.10] María Elena ELLISTaran APPIAH DO [facility] CPT-4: 13017 12/09/2012 ([id number]) OFFICE/OUTPATIENT VISIT EST Diagnosis: PAIN, LOWER BACK[ICD9: 724.2] Diagnosis: SCIATICA[ICD9: 724.3] Diagnosis: LUMBAR DISC DISPLACEMENT[ICD9: 722.10] María Elena ISAAC TANIA APPIAH DO [facility] CPT-4: 52494 12/04/2012 OFFICE/OUTPATIENT VISIT EST Diagnosis: Pneumonia[ICD9: 486] Mary Layne MARÍA ELENA APPIAH DO [facility] CPT-4: 77729 11/22/2012 ([id number]) OFFICE/OUTPATIENT VISIT EST Diagnosis: PNEUMONIA, ORGANISM[ICD9: 486] Diagnosis: Exacerbation of RAD (reactive airway disease)[ICD9: 493.92] María Elena APPIAH DO [facility] CPT-4: 31290 11/21/2012 OFFICE/OUTPATIENT VISIT EST Diagnosis: HYPERTENSION[ICD9: 401.9] Diagnosis: Cephalgia[ICD9: 784.0] Lashawn Eckert MARÍA ELENA APPIAH DO [facility] CPT-4: 04892 10/29/2012 ([id number]) OFFICE/OUTPATIENT VISIT EST Diagnosis: MALAISE AND FATIGUE[ICD9: 780.79] Diagnosis: ARTHRALGIA-MULTIPLE SITES[ICD9: 719.49] María Elena Seamusabbey KYLAH APPIAH DO [facility] CPT-4: 19008 10/14/2012 ([id number]) OFFICE/OUTPATIENT VISIT EST Diagnosis: URINARY FREQUENCY[ICD9: 788.41] María Elena Seamusabbey MARÍA ELENA APPIAH DO [facility] CPT-4: 87527 09/27/2012 ([id number]) OFFICE/OUTPATIENT VISIT EST Diagnosis: MALAISE AND FATIGUE[ICD9: 780.79] Diagnosis: ARTHRALGIA-MULTIPLE SITES[ICD9: 719.49] María Elena Appiah KYLAH BRAUNGAEL Fabiola APPIAH DO [facility] CPT-4: 06454 09/25/2012 ([id number]) OFFICE/OUTPATIENT VISIT EST Diagnosis: SINUSITIS, ACUTE[ICD9: 461.9] 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] María Elena ORTAER [facility] CPT-4: 46418 08/29/2012 OFFICE/OUTPATIENT VISIT EST Diagnosis: ACTINIC KERATOSIS[ICD9: 702.0] Diagnosis: Inflamed seborrheic keratosis[ICD9: 702.11] Diagnosis: Skin cancer of face[ICD9: 173.31] Diagnosis: HYPERTENSION[ICD9: 401.9] María Elena WAY NDER [facility] CPT-4: 58553 08/12/2012 ([id number]) OFFICE/OUTPATIENT VISIT EST Diagnosis: ARTHRALGIA-MULTIPLE SITES[ICD9: 719.49] Diagnosis: GOUT[ICD9: 274.9] Diagnosis: HYPERTENSION[ICD9: 401.9] Diagnosis: Tachycardia[ICD9: 785.0] María Elena HU KARLOS [facility] CPT-4: 30272 05/06/2012 ([id number]) OFFICE/OUTPATIENT VISIT EST Diagnosis: INSOMNIA NOS[ICD9: 780.52] María Elena SIMONS MUMTAZ [facility] CPT-4: 94861 04/03/2012 ([id number]) OFFICE/OUTPATIENT VISIT EST Diagnosis: INSOMNIA NOS[ICD9: 780.52] Diagnosis: HYPERTENSION[ICD9: 401.9] Diagnosis: MIGRAINE NOS/NOT INTRCBL[ICD9: 346.90] María Elena WAYNDER [facility] CPT-4: 53411 03/19/2012 ([id number]) OFFICE/OUTPATIENT VISIT EST Diagnosis: CELLULITIS[ICD9: 682.9] Diagnosis: Ankle pain[ICD9: 719.47] Diagnosis: HYPERTENSION[ICD9: 401.9] María Elena WAY NDER [facility] CPT-4: 15239 02/20/2012 ([id number]) OFFICE/OUTPATIENT VISIT EST Diagnosis: MIGRAINE NOS/NOT INTRCBL[ICD9: 346.90] Diagnosis: Vomiting[ICD9: 787.03] María Elena Waymindimaryjane MONTEROMARÍA ELENA LucioJj SEAMUSGALINA R [facility] CPT-4: 76376 01/30/2012 ([id number]) OFFICE/OUTPATIENT VISIT EST Diagnosis: EDEMA[ICD9: 782.3] Diagnosis: HYPERTENSION[ICD9: 401.9] Diagnosis: ALLERGIC RHINITIS[ICD9: 477.9] Diagnosis: ARTHRALGIA-MULTIPLE SITES[ICD9: 719.49] María Elena APPIAH DO [facility] CPT-4: 38395 01/24/2012 ([id number]) OFFICE/OUTPATIENT VISIT EST Diagnosis: SPASM OF MUSCLE[ICD9: 728.85] Diagnosis: Thoracic back pain[ICD9: 724.1] Diagnosis: Cervical pain[ICD9: 723.1] María Elena PANDYA [employer] [place] [facility] CPT-4: 10158 01/10/2012 OFFICE/OUTPATIENT VISIT EST Diagnosis: PAIN, LOWER BACK[ICD9: 724.2] Diagnosis: LUMBAR DISC DISPLACEMENT[ICD9: 722.10] María Elena Seamusabbey MARIN Fabiola APPIAH [employer] [place] [facility] CPT-4: 55256 12/11/2011 OFFICE/OUTPATIENT VISIT EST Diagnosis: MIGRAINE NOS/NOT INTRCBL[ICD9: 346.90] Diagnosis: SINUSITIS, ACUTE[ICD9: 461.9] María Elena APPIAH [employer] [place] [facility] CPT-4: 24799 11/09/2011 OFFICE/OUTPATIENT VISIT EST Diagnosis: MIGRAINE NOS/NOT INTRCBL[ICD9: 346.90] Diagnosis: LYMPHADENOPATHY[ICD9: 785.6] María Elena Waymindimaryjane ELLISMARÍA ELENA LucioJj TD [employer] [place] [facility] CPT-4: 07943 09/13/2011 OFFICE/OUTPATIENT VISIT EST Diagnosis: MALAISE AND FATIGUE[ICD9: 780.79] Diagnosis: ARTHRALGIA-MULTIPLE SITES[ICD9: 719.49] María Elena Seamusabbey MONTERO APARNAGAEL LucioJj TD [employer] [place] [facility] CPT-4: 02238 08/31/2011 OFFICE/OUTPATIENT VISIT EST Diagnosis: SINUSITIS, ACUTE[ICD9: 461.9] María Elena Td ELLISLINE LucioJj TD [facility] CPT-4: 29757 07/20/2011 OFFICE/OUTPATIENT VISIT EST Diagnosis: HYPERTENSION[ICD9: 401.9] Diagnosis: PAIN, LOWER BACK[ICD9: 724.2] Diagnosis: SPASM OF MUSCLE[ICD9: 728.85] María Elena WAYNDER DO [facility] CPT-4: 24563 07/06/2011 OFFICE/OUTPATIENT VISIT EST Diagnosis: MIGRAINE NOS/NOT INTRCBL[ICD9: 346.90] Diagnosis: HYPERTENSION[ICD9: 401.9] María Elena WAY NDER DO [facility] CPT-4: 84201 05/22/2011 OFFICE/OUTPATIENT VISIT EST Diagnosis: SINUSITIS, ACUTE[ICD9: 461.9] Diagnosis: MIGRAINE NOS/NOT INTRCBL[ICD9: 346.90] Diagnosis: Dehydration[ICD9: 276.51] Diagnosis: Vomiting[ICD9: 787.03] María Elena ORTAE R DO [facility] CPT-4: 53942 05/09/2011 ([id number]) OFFICE/OUTPATIENT VISIT EST María Elena ISAAC UJARED S. ORENDER DO [facility] CPT-4: 41456 02/14/2011 ([id number]) OFFICE/OUTPATIENT VISIT EST María Elena ISAAC UELINE S. ORENDER [facility] CPT-4: 27346 02/03/2011 ([id number]) OFFICE/OUTPATIENT VISIT EST María Elena ISAAC UELINE S. ORENDER [facility] CPT-4: 35444 01/31/2011 ([id number]) OFFICE/OUTPATIENT VISIT EST María Elena ISAAC UELINE S. ORENDER DO [facility] CPT-4: 02911 01/25/2011 ([id number]) OFFICE/OUTPATIENT VISIT EST María Elena ISAAC UELINE S. ORENDER DO [facility] CPT-4: 87241 01/18/2011 ([id number]) OFFICE/OUTPATIENT VISIT EST María Elena ISAAC UJARED S. [facility] CPT-4: 82684 11/29/2010 ([id number]) OFFICE/OUTPATIENT VISIT, EST María Elena [facility] CPT-4: 92000 10/10/2010 ([id number]) OFFICE/OUTPATIENT VISIT, EST María Elena REED S. [facility]ER [facility] CPT-4: 07214 06/07/2010 ([id number]) OFFICE/OUTPATIENT VISIT, EST María Elena [facility] CPT-4: 46514 04/27/2010 ([id number]) OFFICE/OUTPATIENT VISIT, EST María Elena [facility] CPT-4: 37570 04/05/2010 ([id number]) OFFICE/OUTPATIENT VISIT, EST María Elena [facility] CPT-4: 45777 03/09/2010 ([id number]) OFFICE/OUTPATIENT VISIT, EST María Elena REED SJj [facility] CPT-4: 97380 03/03/2010 ([id number]) OFFICE/OUTPATIENT VISIT, EST María Elena REED SJj [facility] CPT-4: 61949 01/17/2010 ([id number]) PREV VISIT, EST, AGE 40-64 María Elena COLEMAN SJj [facility] CPT-4: 63457 12/27/2009 Plan of Care Planned Activity Notes Codes Status Date Appointment: María Elena [facility] [phone] [facility] [place] CANCELED 11/26/2019 Visit Diagnosis Plan: Type 2 diabetes mellitus with hy perglycemia Discussion: Januvia 100mg daily Glimepride 2mg po BID Accuchecks BID Call in 2 weeks with BS readings Get formulary book ICD-9 : 250.02 ICD-10 : E11.65 11/20/2019 Appointment: María Elena Appiah [facility]Ptel[facility] [phone] [facility] [place] FOLLOW UP 11/20/2019 Patient Education: glimepiride- [employer] Coupon [id number] Completed 11/20/2019 Patient Education: Januvia- [employer] Coupon [id number] Completed 11/20/2019 Visit Diagnosis Plan: Ingrowing nail [...] ICD-10 : E11.65 10/07/2019 Appointment: Kathleen Zuniga [address] [place], [place] [id number] [place] OFFICE SURGERY 10/07/2019 Visit Diagnosis Plan: [...] E11.65 09/30/2019 Appointment: María Elena Appiah WPtel[facility] [phone] [facility] CHECK UP 09/30/2019 Patient Education: Premarin- [employer] Coupon [id number] https://www.[employer]/sampleia/resources/getResource/61/[email or web address]-[email or web address]-h7 Completed 09/30/2019 Appointment: María Elena Appiah WPtel: [address] [place], [place] [phone] [place] LAB 09/29/2019 Appointment: María Elena Appiah WPtel: [address] [place], [place] [phone] [place] Won't have the new insurance till [...] 05/28/2019 Appointment: María Elena Appiah WPtel: [address] [place], [place] [phone] US FOLLOW UP 05/28/2019 Appointment: María Elena Appiahtel: [address] [place], [place] [address] US BP CHECK 05/19/2019 Visit Diagnosis Plan: [...] Z79.890 01/22/2019 Appointment: María Elena Appiah WPtel: [address] [place] [address] US FOLLOW UP 01/22/2019 Patient Education: estradiol- [employer] Coupon [id number] https://www.[employer]/V[employer]ensis/resources/getResource/61/[email or web address] Completed 01/22/2019 Appointment: María Elena Appiah WPtel: [phone] [place] [address] US CANCELED 01/20/2019 Appointment: María Elena Appiah WPtel: [address] [place] [address] US LM NO SHOW 01/06/2019 Appointment: María Elena Appiah WPtel: [address] [place] [address] US CANCELED 10/17/2018 Appointment: María Elena Appiah WPtel: [address] [place] [address] US BP CHECK 10/09/2018 Visit Diagnosis Plan: [...] I10 09/30/2018 Appointment: María Elena Appiah WPtel: [address] [place] [address] US FOLLOW UP 09/30/2018 Visit Diagnosis Plan: [...] F51.01 08/27/2018 Appointment: María Elena Appiah WPtel: [address] [place], [place] [phone] ACUTE ILLNESS 08/27/2018 Appointment: María Elena Appiah WPtel: [address] [place], [place] [phone] [place] Patient stated she went out to [...] Tyle... 08/09/2018 Appointment: María Elena Appiah WPtel: [address] [place], [place] [phone] ACUTE ILLNESS 08/09/2018 Appointment: María Elena Appiah WPtel: [address] [place], [place] [phone] NO SHOW 08/08/2018 Visit Diagnosis Plan: Anxiety [...] B35.4 07/22/2018 Appointment: María Elena Appiah WPtel: [phone] [place], [place] [phone] ACUTE ILLNESS 07/22/2018 Appointment: María Elena Appiah WPtel: [phone] [address] [place] INJECTION 06/19/2018 Patient Education: Patient Medication [...] ICD-10 : L03.031 06/17/2018 Appointment: Kathleen Zuniga [address] [place] [address] ACUTE ILLNESS 06/17/2018 Patient Education: Patient Medication [...] : B02.9 05/16/2018 Appointment: Kathleen Zuniga [address] [phone] ACUTE ILLNESS 05/16/2018 Patient Education: Patient Medication [...] : L03.115 03/20/2018 Appointment: Kathleen Zuniga [address] [address] FOLLOW UP 03/20/2018 Patient Education: Patient Medication [...] : L03.115 03/18/2018 Appointment: Kathleen Zuniga [address] [phone] FOLLOW UP 03/18/2018 Patient Education: Patient Medication [...] : L03.115 03/15/2018 Appointment: Kathleen Zuniga [address] [phone] ACUTE ILLNESS 03/15/2018 Patient Education: Patient Medication [...] : 461.9 ICD-10 : J01.90 02/11/2018 Appointment: aKthleen Zuniga [address] [place] [address] ACUTE ILLNESS 02/11/2018 Patient Education: Patient Medication Summary Completed 02/11/2018 Appointment: María Elena Appiah WPtel: [phone] [facility] INJECTION 02/01/2018 Patient Education: [...] ICD-10 : M51.16 01/30/2018 Appointment: Kathleen Zuniga [address] [place], [place] [phone] ACUTE ILLNESS 01/30/2018 Patient Education: Patient Medication [...] 12/18/2017 Appointment: María Elena Appiah WPtel: [address] [place] [address] Annual Well Visit 12/18/2017 Patient Education: Patient Medication Summary Completed 12/18/2017 Care Plan: Referral Order SNOMED-CT : [id number] Pending 12/18/2017 Appointment: María Elena Appiah WPtel: [address] [place] [address] INJECTION 12/10/2017 Patient Education: Patient Medication Summary [...] ICD-10 : L03.031 12/07/2017 Appointment: Kathleen Zuniga [address] [place] [address] ACUTE ILLNESS 12/07/2017 Patient Education: Patient Medication [...] : J01.00 10/08/2017 [facility] [address] [id number] 10/08/2017 Patient Education: Patient Medication Summary Completed 10/08/2017 Appointment: María Elena Appiah [facility]el[facility] [phone] [facility] [facility]JECTION 09/21/2017 Patient Education: Patient Medication Summary [...] : R06.83 09/20/2017 App[facility]ment: [id number] [facility] 09/20/2017 Patient Education: Patient Medication [...] : L60.0 08/29/2017 Appointment: [id number] [facility] 08/29/2017 Patient Education: Patient Medication Summary Completed 08/29/2017 Visit Diagnosis Plan: Actinic keratosis Discussion: Cr yotherapy as above ICD-9 : 702.0 ICD-10 : L57.0 08/01/2017 Appointment: María Elena Appiah WPtel: [address] [place], [place] [phone] OFFICE SURGERY 08/01/2017 Patient Education: Patient Medication Summary Completed 08/01/2017 Appointment: María Elena Appiah WPtel: [address] [place], [place] [phone] PATIENT THOUGHT APPOINTMENT WAS TOMORROW 07/26/17 CALLED 15 MINUTES BEFORE APPT TO SAY SHE DIDN'T HAVE ANYONE TO COVER HER BUSINESS AND WOULD NOT MAKE IT NO SHOW 07/25/2017 Visit Diagnosis Plan: Cellulitis of left toe Discussio n: Clindamycin and notify if worsening or persistis ICD-9 : 681.10 ICD-10 : L03.032 07/19/2017 Appointment: María Elena Appiah WPtel: [address] [place], [place] [phone] MEDICATION REVIEW 07/19/2017 Patient Education: Patient Medication Summary Completed 07/19/2017 Appointment: María Elena Appiah WPtel: [address] [place], [place] [phone] US CANCELED 07/04/2017 Visit Diagnosis Plan: Generalized hyperhidrosis Discus ian: CBC, CMP, TSH, free T4 ordered to assess. will review labs. ICD-9 : 780.8 ICD-10 : R61 06/27/2017 Visit Diagnosis Plan: Chronic sinusitis, unspecified D iscussion: Referral sent to dr. albarado in [place] per patient request. patient has been treated multiple times for sinus infections with no recovery. patient was seen by dr sanchez in the past with no interventions. patient has deviated septum which may be affecting her sinuses. 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, including hip Discussion: Shave removal of above lesio n--sent to pathology ICD-9 : 216.7 ICD-10 : D23.72 01/24/2017 Appointment: María Elena Appiah WPtel: [address] [place], [place] [phone] 01/23 confirmed ~ OFFICE SURGERY 01/24/2017 Patient Education: Patient Medication Summary Completed 01/24/2017 Appointment: Loan Sánchez [address] [place], [place] [id number] 01/09 rescheduled~ RESCHEDULED 01/15/2017 Visit Diagnosis Plan: Localized edema Discussion: Reich ge metolazone to lasix with potassium prn ICD-9 : 782.3 ICD-10 : R60.0 12/13/2016 Visit Diagnosis Plan: Primary insomnia Discussion: Dis cussed Buddymra but at this time patient wants to hold on trying any new meds and would like to try to decrease meds ICD-9 : 780.52 ICD-10 : F51.01 12/13/2016 Visit Diagnosis Plan: Other melanin hyperpigmentation Discussion: Monitor/Observe Sunscreen ICD-9 : 709.09 ICD-10 : L81.4 12/13/2016 Appointment: María Elena Appiah WPtel: [address] [place], [place] [phone] 12/12 confirmed ~ MEDICATION REVIEW 12/13/2016 Patient Education: Patient Medication Summary Completed 12/13/2016 Appointment: María Elena Appiah WPtel: [address] [place], [place] [phone] rescheduled for 12/13/16 at 11am RESCHEDULED 0 12/06/2016 Appointment: María Elena Appiah WPtel: [address] [place], [place] [phone] [place] CANCELED 11/23/2016 Patient Education: Patient Medication [...] F51.01 11/01/2016 Appointment: María Elena Appiah WPtel: [address] [place], [place] [phone] 10/31 lm `sl 11/01 lm`sl MEDICATION REVIEW 017 Patient Education: Patient Medication Summary Completed 11/01/2016 Referral: Canelo Overton WPtel: [phone] [id number] [place] Referral Initiated 10/30/2016 Visit Diagnosis Plan: [...] Z01.419 10/17/2016 Appointment: María Elena Appiah WPtel: [address] [place], [place] [phone] 10/16 confirmed ~sl PAP 10/17/2016 Patient Education: Patient Medication Summary Completed 10/17/2016 Care Plan: MAMMOGRAM SCREENING LOINC : 2 6347-5 Pending 10/17/2016 Visit Diagnosis Plan: Other seasonal allergic rhinitis Discussion: Decadron/Garamycin Nasal Sheridan Mix Too soon for steroid Retry zyrtec 10mg daily ICD-9 : 477.9 ICD-10 : J30.2 10/10/2016 Appointment: María Elena Appiah WPtel: [phone] [facility] [place] FOLLOW UP 10/10/2016 Patient Education: Patient Medication Summary Completed 10/10/2016 Appointment: María Elena Appiah WPtel: [facility] 10/02 reschedule `sl RESCHEDULED 10/02/2016 Visit Plan: See surgery for removal of n ew left arm lesion and right foot lesion Lyrica to use next month for left arm paresthesias Continue current meds Discussed sunscreen/sunblock combo 09/19/2016 Appointment: María Elena Appiah WPtel: [address] [place], [place] [phone] 09/18 confirmed ~ FOLLOW UP 09/19/2016 Patient Education: Patient Medication Summary Completed 09/19/2016 Patient Education: Patient Medication Summary Completed 09/18/2016 Care Plan: MAMMOGRAM BOTH BREASTS LOINC : 25483-7 Pending 09/18/2016 Visit Plan: Discussed that needs [...] sinuses 08/24/2016 Appointment: María Elena Appiah WPtel: [address] [place] [address] ACUTE ILLNESS 08/24/2016 Patient Education: Patient Medication Summary Completed 08/24/2016 Patient Education: Patient Medication Summary Completed 08/23/2016 Care Plan: MAMMOGRAM SCREENING LOINC : 2 6347-5 Pending 08/23/2016 Visit Plan: Finish doxycycline Add Breo 100/25 1 p BID for 2 weeks If not improving within next 2 days will get CXR 08/16/2016 Appointment: María Elena Appiah WPtel: [address] [place] [address] ACUTE ILLNESS 08/16/2016 Patient Education: Patient Medication Summary Completed 08/16/2016 Visit Plan: Supportive care. Rest, Fluid s, Tylenol/Motrin prn fever or bodyaches. Notify if worsening symptoms. Doxycyline and Prednisone 08/10/2016 Appointment: María Elena Appiah WPtel: [address] [place] [address] 08/09 lm`sl....confirmed-sp FOLLOW UP 09/2015 Patient Education: Patient Medication Summary Completed 08/10/2016 Visit Plan: Saline nasal flushes prn. Ty lenol/Motrin prn headache. Notify if persists/symptoms worsening. Dexamethasone 8mg IM today May use coricedan and mucinex 08/02/2016 Appointment: María Elena Appiah WPtel: [address] [place] [address] ACUTE ILLNESS 08/02/2016 Patient Education: Patient Medication Summary Completed 08/02/2016 Visit Plan: Cryotherapy as above and lef t forearm lesion removal as above with 5-0 punch biopsy and sent to path Return in 10 days for suture removal 08/01/2016 Appointment: María Elena Appiah WPtel: [address] [place] [address] 07/31 confirmed`~sl OFFICE SURGERY 08/01/2016 Patient Education: Patient Medication Summary Completed 08/01/2016 Visit Plan: Stop clindamycin Check CBC, CMP, ESR now/STAT 07/27/2016 Appointment: María Elena Appiah WPtel: [address] [place] [address] ACUTE ILLNESS 07/27/2016 Patient Education: Patient Medication Summary Completed 07/27/2016 Visit Plan: Update lab and check ABIs to start with Will likely need cardiology evaluation to rule out PVD Clindamycin for 10 days Daily yogurt or probiotic Will return for removal of left arm lesions 07/20/2016 Appointment: María Elena Appiah WPtel: [address] [place] [address] ACUTE ILLNESS 07/20/2016 Patient Education: Patient Medication Summary Completed 07/20/2016 Patient Education: Patient Medication Summary Completed 07/20/2016 Care Plan: MAMMOGRAM BOTH BREASTS LOINC : 03586-2 Pending 07/20/2016 Care Plan: US EXAM CHEST LOINC : 93992-8 Pending 07/20/2016 Visit Plan: Wound culture collected from left great toe Appearance is somewhat staph like Rx as above Wound cleanser and skin care reviewed May need to add oral antibiotic if sores do not heal or continue to reoccur 07/06/2016 Appointment: Loan Sánchez [address] [place] [address] ACUTE ILLNESS 07/06/2016 Patient Education: Patient Medication Summary Completed 07/06/2016 Appointment: María Elena Appiah WPtel: [address] [place] [address] [place] INJECTION 05/25/2016 Patient Education: Patient Medication Summary Completed 05/25/2016 Visit Plan: Saline nasal flushes prn. Ty lenol/Motrin prn headache. Notify if persists/symptoms worsening. Dexamethasone and Rocephin given 04/26/2016 Appointment: María Elena Appiah WPtel: [address] [place] [address] ACUTE ILLNESS 04/26/2016 Patient Education: Patient Medication Summary Completed 04/26/2016 Visit Plan: Check CBC, CMP, TSH, FreeT4, HbA1C, estradiol, lipids in AM 03/02/2016 Appointment: María Elena Appiah WPtel: [address] [place] [address] 03/01 lm~sl ACUTE ILLNESS 03/02/2016 Patient Education: Patient Medication Summary Completed 03/02/2016 Visit Plan: Exam is nearly normal Needs to be taking daily antihistamine Would prefer to use oral steroids instead of shot but patient insist that oral steroids cause horrible headaches for her Will given kenalog IM instead 02/09/2016 Appointment: Loan Sánchez [address] [place] [address] ACUTE ILLNESS 02/09/2016 Patient Education: Patient Medication Summary Completed 02/09/2016 Visit Plan: Culture urine Macrobid DC xa nax Trial of Ativan 1mg q HS 01/24/2016 Appointment: María Elena Appiah WPtel: [address] [place] [address] ACUTE ILLNESS 01/24/2016 Patient Education: Patient Medication Summary Completed 01/24/2016 Visit Plan: No steroid or rocephin injec tion warranted Can have oral prednisone Continue current home regimen Needs to follow up with Dr Sanchez if problems persist 12/23/2015 Appointment: Loan Sánchez [address] [place] [address] ACUTE ILLNESS 12/23/2015 Patient Education: Patient Medication Summary Completed 12/23/2015 Visit Plan: Saline nasal flushes prn. Ty lenol/Motrin prn headache. Notify if persists/symptoms worsening. Kenalog 40mg IM today 12/08/2015 Appointment: María Elena Appiah WPtel: [address] [place] [address] 12/06 confirmed~ ACUTE ILLNESS 12/08/2015 Patient Education: Patient Medication Summary Completed 12/08/2015 Appointment: María Elena Appiah WPtel: [address] [place] [address] ACUTE ILLNESS 11/18/2015 Patient Education: Patient Medication Summary Completed 10/11/2015 Appointment: María Elena Appiah WPtel: [address] [place] [address] [place] INJECTION 10/07/2015 Patient Education: Patient Medication Summary Completed 10/07/2015 Visit Plan: Check renal arterial doppler s and ECHO Change amlodopine to lotrel 5/20mg q HS Will need stress test as well Check CMP, uric acid, ESR 10/06/2015 Appointment: María Elena Appiah WPtel: [address] [place] [address] ACUTE ILLNESS 10/06/2015 Patient Education: Patient Medication Summary Completed 10/06/2015 Patient Education: [facility] - Saving [employer] - Amlodipine Besylate - 18-64 - Dynamic Portal ID Completed 10/06/2015 Appointment: María Elena Appiah WPtel: [address] [place] [address] FOLLOW UP 09/22/2015 Visit Plan: Cephalexin 500 mg PO bid Mery ly topical Mupirocin to lesions on left lateral neck and face Follow-up in one week. Sooner if symptoms worsen 09/14/2015 Appointment: June Flores WPtel: [address] [place] [address] ACUTE ILLNESS 09/14/2015 Patient Education: Patient Medication Summary Completed 09/14/2015 Visit Plan: Change bystolic to bedtime d osing and amlodopine to morning dosing Cryotherapy as above to AKs 09/07/2015 Appointment: María Elena Appiah WPtel: [address] [place] [address] 09/06 appointment made and confirmed ~sl FOLLOW UP 09/07/2015 Patient Education: Patient Medication Summary Completed 09/07/2015 Visit Plan: Increase bystolic back to 20 mg daily but will split and take 10mg in AM and 10mg in PM Stress Reducers 08/18/2015 Appointment: María Elena Appiah WPtel: [address] [place] [address] 08/17/15 appt confirmed cn ACUTE ILLNESS 08/18 Patient Education: Patient Medication Summary Completed 08/18/2015 Appointment: María Elena Appiah WPtel: [address] [place] [address] BP CHECK 07/07/2015 Patient Education: Patient Medication Summary Completed 07/07/2015 Appointment: María Elena Appiah WPtel: [address] [place] [address] BP CHECK 06/24/2015 Patient Education: Patient Medication Summary Completed 06/24/2015 Appointment: María Elena Appiah WPtel: [address] [place] [address] BP CHECK 06/21/2015 Patient Education: Patient Medication Summary Completed 06/21/2015 Visit Plan: Lab discussed Continue curre nt meds and lifestyle modification Recheck lab in 6mos 06/16/2015 Appointment: María Elena Appiah WPtel: [address] [place] [address] 06/15 confirmed FOLLOW UP 06/16/2015 Patient Education: Patient Medication Summary Completed 06/16/2015 Patient Education: Patient Medication Summary Completed 06/15/2015 Visit Plan: Increase cymbalta to 60mg q HS Keep clonidine at current dose Recheck 2weeks Change xanax to klonopin 06/02/2015 Appointment: María Elena Appiah WPtel: [address] [place] [address] 06/02 lm FOLLOW UP 06/02/2015 Patient Education: Patient Medication Summary Completed 06/02/2015 Appointment: María Elena Appiah WPtel: [address] [place] [address] ACUTE ILLNESS 05/24/2015 Visit Plan: Increase clonidine to 0.2mg q HS Add cymbalta 30mg q HS Recheck 2weeks Stress Reducers Check fasting lab Discussed sleep study 05/20/2015 Appointment: María Elena Appiah WPtel: [address] [place] [address] ACUTE ILLNESS 05/20/2015 Patient Education: Patient Medication Summary Completed 05/20/2015 Patient Education: [facility] - [employer]aving [employer] - Cymbalta - 18-64 - Dynamic Portal ID Completed 05/20/2015 Appointment: María Elena Appiah WPtel: [address] [place] [address] BP CHECK 05/19/2015 Patient Education: Patient Medication Summary Completed 05/19/2015 Visit Plan: Topical Bactroban alternatin g with topical betamethasone Recheck 2weeks 05/10/2015 Appointment: María Elena Appiah WPtel: [address] [place] [address] 05/07 vm cn...05/07 appt confirmed OFFICE SURGER Y 05/10/2015 Patient Education: Patient Medication Summary Completed 05/10/2015 Referral: Patrick Chandler WPtel: [facility] [address] Referral Initiated 05/04/2015 Visit Plan: Saline nasal flushes prn. Ty lenol/Motrin prn headache. Notify if persists/symptoms worsening. Depomedrol 40mg IM today 03/16/2015 Appointment: María Elena Appiah WPtel: [address] [place] [address] ACUTE ILLNESS 03/16/2015 Patient Education: Patient Medication Summary Completed 03/16/2015 Appointment: María Elena Appiah WPtel: [address] [place] [address] ER Follow UP 03/09/2015 Visit Plan: Cryotherapy to lesions as ab ove 10/27/2014 Appointment: María Elena Appiah WPtel: [address] [place] [address] OFFICE SURGERY 10/27/2014 Patient Education: Patient Medication Summary Completed 10/27/2014 Appointment: June Flores WPtel: [address] [place] [address] ACUTE ILLNESS 09/11/2014 Patient Education: Patient Medication Summary Completed 09/11/2014 Visit Plan: Lab discussed Lipitor 10mg d aily Coenzyme Q-10 400mg daily Vitamin D3 5000u daily Recheck lipids with LFTs in 3mos then fwup 08/31/2014 Appointment: María Elena Appiah WPtel: [address] [place] [address] 08/28 voicemail FOLLOW UP 08/31/2014 Patient Education: Patient Medication Summary Completed 08/31/2014 Appointment: María Elena Appiah WPtel: [address] [place] [address] [place] LAB 08/27/2014 Appointment: María Elena Appiah WPtel: [address] [place], [place] [phone] [place] LAB 08/27/2014 Patient Education: Patient Medication Summary Completed 08/27/2014 Appointment: María Elena Appiah WPtel: [address] [place], [place] [address] ACUTE ILLNESS 07/23/2014 Appointment: María Elena Appiah WPtel: [address] [place] [address] ACUTE ILLNESS 07/21/2014 Patient Education: Patient Medication Summary Completed 07/21/2014 Visit Plan: Kenalog 40mg IM today Contin ue narendra and singulair Add Flonase 07/15/2014 Appointment: María Elena Appiah WPtel: [address] [place] [address] ACUTE ILLNESS 07/15/2014 Appointment: María Elena Appiah WPtel: [address] [place] [address] ACUTE ILLNESS 07/15/2014 Patient Education: Patient Medication Summary Completed 07/15/2014 Visit Plan: Will do metolazone 2.5mg prn with 6 potassium and see if causes as severe cramping Trial of of seroquel XR 50mg q PM with evening meal and let us know how works 05/18/2014 Appointment: María Elena Appiah WPtel: [address] [place] [address] 05/15 left message FOLLOW UP 05/18/2014 Patient Education: Patient Medication Summary Completed 05/18/2014 Appointment: María Elena Appiah WPtel: [address] [place], [place] [phone] [place] LAB 05/14/2014 Patient Education: Patient Medication Summary Completed 05/14/2014 Appointment: María Elena Appiah WPtel: [address] [place], [place] [phone] [place] INJECTION 04/22/2014 Visit Plan: Rocephin and Kenalog today a nd finish abx given from urgent care 04/21/2014 Appointment: María Elena Appiah WPtel: [address] [place] [address] [place] INJECTION 04/21/2014 Patient Education: Patient Medication Summary Completed 04/21/2014 Appointment: June Flores WPtel: [address] [place] [address] ACUTE ILLNESS 03/04/2014 Patient Education: Patient Medication Summary Completed 03/04/2014 Appointment: María Elena Appiah WPtel: [address] [place] [address] [place] INJECTION 02/27/2014 Patient Education: Patient Medication Summary Completed 02/27/2014 Visit Plan: Cryotherapy as above to all lesions Patient wants to try no meds for insomnia for a while and see how goes 01/13/2014 Appointment: María Elena Appiah WPtel: [address] [place] [address] OFFICE SURGERY 01/13/2014 Patient Education: Patient Medication Summary Completed 01/13/2014 Visit Plan: Stop Melatonin Stop Soma Tri al of trazadone 75mg q HS See ENT for possible tubes as has had chronic ETD and serous otitis media with numerous steroids 12/24/2013 Appointment: María Elena Appiah WPtel: [address] [place] [address] ACUTE ILLNESS 12/24/2013 Patient Education: Patient Medication Summary Completed 12/24/2013 Visit Plan: Saline nasal flushes prn. Ty lenol/Motrin prn headache. Notify if persists/symptoms worsening. 11/12/2013 Appointment: María Elena Appiah WPtel: [address] [place] [address] ACUTE ILLNESS 11/12/2013 Patient Education: Patient Medication Summary Completed 11/12/2013 Appointment: María Elena Appiah WPtel: [address] [place] [address] ACUTE ILLNESS 10/21/2013 Patient Education: Patient Medication Summary Completed 10/21/2013 Visit Plan: Sleep hygiene and sleep rout ine Melatonin 10mg q HS Support stockings and observe 09/22/2013 Appointment: María Elena Appiah WPtel: [address] [place], [place] [id number] ACUTE ILLNESS 09/22/2013 Patient Education: Patient Medication Summary Completed 09/22/2013 Appointment: June Flores WPtel: [address] [place] [address] ACUTE ILLNESS 08/27/2013 Patient Education: Patient Medication Summary Completed 08/27/2013 Visit Plan: Proceed with CT scan of head /neck Proceed with occipital nerve injections Butrans 20mcg patch weekly until can get into see Dr. Mcdonough for injections 08/04/2013 Appointment: María Elena Appiah WPtel: [address] [place] [address] FOLLOW UP 08/04/2013 Patient Education: Patient Medication Summary Completed 08/04/2013 Visit Plan: OMT done Daily neck stretche s, moist heat Increase Celebrex to 200mg BID Add flexeril 07/23/2013 Appointment: María Elena Appiah WPtel: [address] [place] [address] 07/22 voicemail FOLLOW UP 07/23/2013 Patient Education: Patient Medication Summary Completed 07/23/2013 Appointment: María lEena Appiah WPtel: [address] [place] [address] ACUTE ILLNESS 06/23/2013 Patient Education: Patient Medication Summary Completed 06/23/2013 Appointment: María Elena Appiah WPtel: [address] [place] [address] ACUTE ILLNESS 05/26/2013 Patient Education: Patient Medication Summary Completed 05/26/2013 Visit Plan: Decrease clonidine to 0.1mg TID If BP remains stable consider decreasing amlodopine Prednisone for 5 days BP check in 1mo 04/16/2013 Appointment: María Elena Appiah WPtel: [address] [place] [address] 04/14 pt called and confirmed appt FOLLOW UP 04/16/2013 Patient Education: Patient Medication Summary Completed 04/16/2013 Appointment: María Elena Appiah WPtel: [address] [place] [address] ACUTE ILLNESS 03/05/2013 Patient Education: Patient Medication Summary Completed 03/05/2013 Visit Plan: Pt has MARIA ELENA on with Dr. Mcdonough Continue Butrans patch Refill Hydrocodone early tomorrow 12/23/2012 Appointment: María Elena Appiah WPtel: [address] [place] [address] FOLLOW UP 12/23/2012 Patient Education: Patient Medication Summary Completed 12/23/2012 Appointment: Lashawn Eckert WPtel: [address] [place] [address] ACUTE ILLNESS 12/16/2012 Patient Education: Patient Medication Summary Completed 12/16/2012 Visit Plan: Proceed with updated MRI of LS spine Continue gabapentin and add soma and diclofenac Will likely need to go for another epidural 12/09/2012 Appointment: María Elena Appiah WPtel: [address] [place] [address] ACUTE ILLNESS 12/09/2012 Patient Education: Patient Medication Summary Completed 12/09/2012 Visit Plan: Injection as above Finish me drol dose pack Chiropracter this afternoon 12/04/2012 Appointment: María Elena Appiah WPtel: [address] [place] [address] ACUTE ILLNESS 12/04/2012 Patient Education: Patient Medication Summary Completed 12/04/2012 Appointment: Mary Tillman WPtel: [address] [place] [address] FOLLOW UP 11/22/2012 Patient Education: Patient Medication Summary Completed 11/22/2012 Appointment: María Elena Appiah WPtel: [address] [place] [address] ACUTE ILLNESS 11/21/2012 Patient Education: Patient Medication Summary Completed 11/21/2012 Appointment: María Elena Appiah WPtel: [address] [place] [address] BP CHECK 11/07/2012 Patient Education: Patient Medication [...] BP re-check. 10/29/2012 Appointment: Lashawn Eckert WPtel: [address] [place] [address] ACUTE ILLNESS 10/29/2012 Patient Education: Patient Medication Summary Completed 10/29/2012 Appointment: María Elena Appiah WPtel: [address] [place] [address] ACUTE ILLNESS 10/14/2012 Patient Education: Patient Medication Summary Completed 10/14/2012 Appointment: María Elena Appiah WPtel: [address] [place] [address] UA 09/27/2012 Patient Education: Patient Medication Summary Completed 09/27/2012 Appointment: María Elena Appiah WPtel: [address] [place] [address] ACUTE ILLNESS 09/25/2012 Patient Education: Patient Medication Summary Completed 09/25/2012 Appointment: María Elena Appiah WPtel: [address] [place] [address] BP CHECK 09/24/2012 Appointment: María Elena Appiah WPtel: [address] [place] [address] ACUTE ILLNESS 08/29/2012 Patient Education: Patient Medication Summary Completed 08/29/2012 Visit Plan: Cryotherapy as above See Karlos m for right ear lesion--probable MOHs procedure Increase amlodopine to 10mg daily 08/12/2012 Appointment: María Elena Appiah WPtel: [address] [place], [place] [phone] OFFICE SURGERY 08/12/2012 Patient Education: Patient Medication Summary Completed 08/12/2012 Appointment: María Elena Appiahtel: [address] [place], [place] [phone] 05/03 vm on pt phone...pt called on 04/11 3 pt called wanting in had no one cancel so could not get her in for an appt sooner than 05/06. ACUTE ILLNESS 05/06/2012 Patient Education: Patient Medication Summary Completed 05/06/2012 Visit Plan: Pt wants to hold on any furt her sleep medications 04/03/2012 Appointment: María Elena Appiahtel: [address] [place], [place] [phone] FOLLOW UP 04/03/2012 Patient Education: Patient Medication Summary Completed 04/03/2012 Appointment: María Elena Appiah WPtel: [address] [place], [place] [phone] [place] FOLLOW UP 03/19/2012 Patient Education: Patient Medication Summary Completed 03/19/2012 Appointment: María Elena Appiahtel: [address] [place], [place] [phone] BP CHECK 02/22/2012 Patient Education: Patient Medication Summary Completed 02/22/2012 Appointment: María Elena Appiahtel: [address] [place], [place] [phone] BP CHECK 02/21/2012 Patient Education: Patient Medication Summary Completed 02/21/2012 Visit Plan: Doxycycline and bactroban fo r foot Supportive care on ankles and knees Add norvasc for BP 02/20/2012 Appointment: María Elena Appiahtel: [address] [place], [place] [phone] ER Follow UP 02/20/2012 Patient Education: Patient Medication Summary Completed 02/20/2012 Appointment: María Elena Appiahtel: [address] [place] [address] ACUTE ILLNESS 01/30/2012 Patient Education: Patient Medication Summary Completed 01/30/2012 Appointment: María Elena Appiah WPtel: [address] [place] [address] ACUTE ILLNESS 01/24/2012 Patient Education: Patient Medication Summary Completed 01/24/2012 Visit Plan: Daily back stretches, moist heat, Biofreeze prn OMT done 01/10/2012 Appointment: María Elena Appiah WPtel: [address] [place] [address] ACUTE ILLNESS 01/10/2012 Patient Education: Patient Medication Summary Completed 01/10/2012 Appointment: María Elena Appiah WPtel: [address] [place] [address] FOLLOW UP 12/11/2011 Patient Education: Patient Medication Summary Completed 12/11/2011 Appointment: María Elena Appiah WPtel: [address] [place] [address] ACUTE ILLNESS 11/09/2011 Patient Education: Patient Medication Summary Completed 11/09/2011 Appointment: María Elena Appiah WPtel: [address] [place] [address] ACUTE ILLNESS 09/13/2011 Patient Education: Patient Medication Summary Completed 09/13/2011 Visit Plan: Check CBC, TSH, Free T4, CMP , ESR, Vit D, B12 now Start Prednisone today 08/31/2011 Appointment: María Elena Appiah WPtel: [address] [place] [address] ACUTE ILLNESS 08/31/2011 Patient Education: Patient Medication Summary Completed 08/31/2011 Appointment: María Elena Appiah WPtel: [address] [place] [address] [place] INJECTION 07/20/2011 Patient Education: Patient Medication Summary Completed 07/20/2011 Visit Plan: Continue current meds Monite r BP Cont stretches from PT 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 07/06/2011 Appointment: María Elena Appiahtel: [address] [place], [place] [phone] [place] FOLLOW UP 07/06/2011 Patient Education: Patient Medication Summary Completed 07/06/2011 Appointment: María Elena Appiahtel: [address] [place], [place] [id number] [place] BP CHECK 06/06/2011 Patient Education: Patient Medication Summary Completed 06/06/2011 Visit Plan: Add Bystolic at 2.5mg QAM Ad d Robaxin 750mg 2 po q HS BP check in 2wks 05/22/2011 Appointment: María Elena Appiah WPtel: [address] [place] [address] [place] FOLLOW UP 05/22/2011 Patient Education: Patient Medication Summary Completed 05/22/2011 Appointment: María Elena Appiah WPtel: [address] [place], [place] [id number] ER Follow UP 05/09/2011 Patient Education: Patient Medication Summary Completed 05/09/2011 Appointment: María Elena Appiahtel: [address] [place], [place] [phone] [place] FOLLOW UP 02/22/2011 Visit Plan: Rx written for Hydrocodone 1 0/325mg #240 See Ortho 02/14/2011 Appointment: María Elena Appiah WPtel: [address] [place], [place] [phone] OMT 02/14/2011 Patient Education: Patient Medication Summary [...] lab work. 02/03/2011 Appointment: Lashawn Eckert WPtel: [address] [place] [address] ACUTE ILLNESS 02/03/2011 Patient Education: Patient Medication Summary Completed 02/03/2011 Visit Plan: OMT done Cont daily stretche s 01/31/2011 Appointment: María Elena Appiah WPtel: [address] [place] [address] ACUTE ILLNESS 01/31/2011 Patient Education: Patient Medication Summary Completed 01/31/2011 Visit Plan: Continue pain meds OMT done Proceed with PT No work this summer01/25/2011 Appointment: María Elena Appiah WPtel: [address] [place] [address] ACUTE ILLNESS 01/25/2011 Patient Education: Patient Medication Summary Completed 01/25/2011 Visit Plan: Start PT Long discussion abo ut getting pain meds from only us and can only have max of 4grams of tylenol per day Change to Hydrocodone 10/325mg 1- 2 po TID prn pain--#180 called to Radha 01/18/2011 Appointment: María Elena Appiah WPtel: [address] [place] [address] FOLLOW UP 01/18/2011 Patient Education: Patient Medication Summary Completed 01/18/2011 Visit Plan: Daily back stretches, moist heat, Biofreeze prn 11/29/2010 Appointment: María Elena Appiah WPtel: [address] [place] [address] ER Follow UP 11/29/2010 Patient Education: Patient Medication Summary Completed 11/29/2010 Visit Plan: Saline nasal flushes prn. Ty lenol/Motrin prn headache. Notify if persists/symptoms worsening. Finish augmentin Add Medrol Dose Pack 10/10/2010 Appointment: María Elena Appiahtel: [address] [place] [address] ACUTE ILLNESS 10/10/2010 Patient Education: Patient Medication Summary Completed 10/10/2010 Visit Plan: Cryotherapy x3 to multiple l esions on both forearms 07/19/2010 Appointment: María Elena Appiah WPtel: [address] [place] [address] OFFICE SURGERY 07/19/2010 Patient Education: Patient Medication Summary Completed 07/19/2010 Appointment: María Elena Appiah WPtel: [address] [place] [address] BP CHECK 07/06/2010 Patient Education: Patient Medication Summary Completed 07/06/2010 Appointment: María Elena Appiah WPtel: [address] [place] [address] BP CHECK 06/30/2010 Patient Education: Patient Medication Summary Completed 06/30/2010 Appointment: María Elena Appiahtel: [address] [place] [address] BP CHECK 06/20/2010 Patient Education: Patient Medication Summary Completed 06/20/2010 Visit Plan: Change Diovan to Exforge 160 /5mg QD OMT done to thoracics BP check in 2wks 06/07/2010 Appointment: María Elena Appiah WPtel: [address] [place], [place] [id number] 06/07/2010 Patient Education: Patient Medication Summary Completed 06/07/2010 Appointment: María Elena Appiahtel: [address] [place] [address] [place] BP CHECK 06/03/2010 Patient Education: Patient Medication Summary Completed 06/03/2010 Appointment: María Elena Appiah WPtel: [address] [place] [address] BP CHECK 06/01/2010 Patient Education: Patient Medication Summary Completed 06/01/2010 Visit Plan: Irritated skin tags to left neck x2 excised at base with scissors and base cauterized 05/30/2010 Appointment: María Elena Appiahtel: [address] [place] [address] OFFICE SURGERY 05/30/2010 Patient Education: Patient Medication Summary Completed 05/30/2010 Visit Plan: Saline nasal flushes prn. Ty lenol/Motrin prn headache. Notify if persists/symptoms worsening. Restart Nasonex Has allergy testing set for May 25 04/27/2010 Appointment: María Elena Appiahtel: [address] [place] [address] ACUTE ILLNESS 04/27/2010 Patient Education: Patient Medication Summary Completed 04/27/2010 Visit Plan: Saline nasal flushes prn. Ty lenol/Motrin prn headache. Notify if persists/symptoms worsening. Omnaris BID plus injections 04/05/2010 Appointment: María Elena Appiah WPtel: [address] [place] [address] ACUTE ILLNESS 04/05/2010 Patient Education: Patient Medication Summary Completed 04/05/2010 Visit Plan: Saline nasal flushes prn. Ty lenol/Motrin prn headache. Notify if persists/symptoms worsening. 03/09/2010 Appointment: María Elena Appiahtel: [address] [place] [address] ACUTE ILLNESS 03/09/2010 Patient Education: Patient Medication Summary Completed 03/09/2010 Visit Plan: Cont Clonidine as is Cont Pr emarin Fwup with surgery as scheduled 03/03/2010 Appointment: María Elena Appiah WPtel: [address] [place] [address] FOLLOW UP 03/03/2010 Patient Education: Patient Medication Summary Completed 03/03/2010 Visit Plan: Check Pelvic US now Chelsey Sal C vs Hysterectomy 01/17/2010 Appointment: [facility]ía [facility] [phone] [id number] [facility] [facility] 01/17/2010 Patient Education: Patient Medication Summary Completed 01/17/2010 Visit Plan: Check fasting lab and schedu le Mammogram 2gm Na Diet Trial of Ambien 10mg qhs Fwup pending lab results 12/27/2009 Appointment: María Elena [facility]iah [facility]el[facility] [phone] [id number] ESTABLISHED PATIENT 12/27/2009 Patient Education: Patient Medication Summary Completed 12/27/2009 Referral: Canelo Overton WPtel: [address] [id number] Referral Initiated Referral: Philipp Flores WPtel: [address] [id number] [place] Referral Appointment Requested Instructions Comment . [...] 1-2 po TID prn pain--#180 called to Whitne[place]oy[place] . Daily back stretches, moist heat, Biof [...]
--- OUTSIDE RECORDS SUMMARY | 2020-03-13 05:19 | XMS REPORT | CCD ---
Author Author Gale Appiah D.O. 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 [id number] Unknown Family History Family History data not found Social History Social History Element Codes Description Effective Dates Tobacco history SNOMED CT: [id number] Never smoker 05/22/2011 Allergies, Adverse Reactions, Alerts [...] hydrocodone 10 mg-acetaminophen 325 mg tablet RxNorm: 470278 1-2 Tablet(s) Oral three times a day as needed for pain 12/10/2019 No Stop Date Active Januvia 100 mg tablet RxNorm: 993530 1 Tablet(s) Oral QD 11/20/2019 0 11/20/2019 Inactive glimepiride 2 mg tablet RxNorm: 198671 1 Tablet(s) Oral two sawyer es a day 11/20/2019 12/20/2019 Active cyclobenzaprine 10 mg tablet RxNorm: 729950 TAKE ONE TA BLET BY MOUTH THREE TIMES A DAY NEEDED FOR MUSCLE SPASMS 11/17/2019 No Stop Date Active doxepin 25 mg capsule RxNorm: 3413531 TAKE ONE CAPSULE B Y MOUTH EVERY NIGHT AT BEDTIME NEEDED FOR SLEEP 11/16/2019 No Stop Date Active Klor-Con 8 mEq tablet,extended release RxNorm: 503729 T FARRUKH ONE TABLET BY MOUTH TWICE A DAY 11/16/2019 No Stop Date Active hydrocodone 10 mg-acetaminophen 325 mg tablet RxNorm: 361783 1-2 Tablet(s) Oral three times a day as needed for pain 11/10/2019 12/09/2019 Inactive cyclobenzaprine 10 mg tablet RxNorm: 301719 TAKE ONE TA BLET BY MOUTH THREE TIMES A DAY NEEDED FOR MUSCLE SPASMS 10/23/2019 11/16/2019 Inactive duloxetine 60 mg capsule,delayed release RxNorm: 672068 1 Capsu le(s) Oral QD 10/17/2019 04/13/2020 Active celecoxib 200 mg capsule RxNorm: 641900 1 Capsule(s) Or al two times a day as needed for pain 10/17/2019 01/14/2020 Active lisinopril 20 mg tablet RxNorm: 648720 1 Tablet(s) Oral QD 10/17/1904/13/2020 Active gabapentin 300 mg capsule RxNorm: 588506 1 Capsule(s) O ral every night at bedtime 10/17/2019 01/15/2020 Active Singulair 10 mg tablet RxNorm: 388558 1 Tablet(s) Oral QD 10/17/2019 04/14/2020 Active metoprolol tartrate 100 mg tablet RxNorm: 672876 1 Tabl et(s) Oral two times a day 10/17/2019 04/13/2020 Active clonidine HCl 0.1 mg tablet RxNorm: 581639 1 Tablet(s) Oral fou r times a day 10/17/2019 04/13/2020 Active Januvia 100 mg tablet RxNorm: 407973 1 Tablet(s) Oral QD 10/17/2019 No Stop Date Active Lipitor 10 mg tablet RxNorm: 184432 1 Tablet(s) Oral QD 10/17/2019 Active Steglatro 15 mg tablet RxNorm: 0122952 1 Tablet(s) Oral QD 10/17/19 No Stop Date Active Klor-Con 8 mEq tablet,extended release RxNorm: 117374 1 Tablet(s) Oral two times a day 10/17/2019 11/15/2019 Inactive Glyxambi 25 mg-5 mg tablet RxNorm: 2458295 1 Tablet(s) Oral QD 01/202010/16/2019 Inactive Patient will bring in copay discount card as well Glyxambi 25 mg-5 mg tablet RxNorm: 9163683 1 Tablet(s) Oral QD 01/202010/14/2019 Inactive Patient will bring in copay discount card as well Keflex 500 mg capsule RxNorm: 054389 1 Capsule(s) Oral two time s a day 10/07/2019 10/14/2019 Inactive Premarin 1.25 mg tablet RxNorm: 168590 1 Tablet(s) Oral QD 09/30/19 20 06/25/2020 Active hydrocodone 10 mg-acetaminophen 325 mg tablet RxNorm: 623063 1-2 Tablet(s) Oral three times a day as needed for pain 09/30/2019 09/30/2019 Inactive baclofen 10 mg tablet RxNorm: 748576 TAKE ONE TABLET BY MOUTH THREE TIMES A DAY NEEDED 09/19/2019 No Stop Date Active gabapentin 300 mg capsule RxNorm: 486391 TAKE ONE CAPSU LE BY MOUTH EVERY NIGHT AT BEDTIME 09/19/2019 10/16/2019 Inactive Klor-Con 8 mEq tablet,extended release RxNorm: 539377 T FARRUKH ONE TABLET BY MOUTH TWICE A DAY 1 Tablet(s) Oral two times a day 09/19/2019 10/16/2019 [place] [facility] hydrocodone 10 mg-acetaminophen 325 mg tablet RxNorm: 638733 1-2 Tablet(s) Oral three times a day as needed for pain 09/19/2019 09/29/2019 Inactive triamterene 75 mg-hydrochlorothiazide 50 mg tablet RxNorm: 3 19208 TAKE ONE TABLET BY MOUTH DAILY 09/11/2019 No Stop Date Active allopurinol 300 mg tablet RxNorm: 255409 TAKE ONE TABLET BY LOPEZ TH DAILY 09/11/2019 No Stop Date Active duloxetine 60 mg capsule,delayed release RxNorm: 365955 TAKE ONE CAPSULE BY MOUTH DAILY 09/11/2019 10/16/2019 Inactive Lipitor 10 mg tablet RxNorm: 352484 TAKE ONE TABLET BY MOUTH AT BEDTIME 09/11/2019 10/16/2019 Inactive lisinopril 20 mg tablet RxNorm: 983038 TAKE ONE TABLET BY MOUTH DAILY .... THIS REPLACE 10MG TABLETS 09/11/2019 10/16/2019 Inactive celecoxib 200 mg capsule RxNorm: 852492 TAKE ONE CAPSUL E BY MOUTH TWICE A DAY NEEDED FOR PAIN 09/11/2019 10/16/2019 Inactive clonidine HCl 0.1 mg tablet RxNorm: 293649 TAKE ONE TAB LET BY MOUTH FOUR TIMES A DAY 09/11/2019 10/16/2019 Inactive doxepin 25 mg capsule RxNorm: 4105091 1 Capsule(s) Oral every night at bedtime as needed for sleep 08/21/2019 11/15/2019 Inactive hydrocodone 10 mg-acetaminophen 325 mg tablet RxNorm: 196299 1-2 Tablet(s) PO TID 08/12/2019 09/29/2019 Inactive as needed for pa in - Previous quantity #240, will start dosing for #180 in April 2011 per Doctor Td. Medrol (Dsutin) 4 mg tablets in a dose pack RxNorm: 873013 Tablet(s) Oral As Directed 07/21/2019 09/29/2019 Inactive Premarin 1.25 mg tablet RxNorm: 790133 1 Tablet(s) Oral QD 07/02/20 19 09/29/2019 Inactive hydrocodone 10 mg-acetaminophen 325 mg tablet RxNorm: 106504 1-2 Tablet(s) PO TID 07/01/2019 08/11/2019 Inactive as needed for pa in - Previous quantity #240, will start dosing for #180 in April 2011 per Doctor Td. gabapentin 300 mg capsule RxNorm: 424190 1 Capsule(s) PO QHS 201809/18/2019 Inactive celecoxib 200 mg capsule RxNorm: 032647 1 Capsule(s) Or al two times a day as needed for pain 06/27/2019 06/27/2019 Inactive furosemide 40 mg tablet RxNorm: 500362 TAKE ONE TABLET BY MOUTH EVERY MORNING NEEDED FOR EDEMA . TAKE WITH POTASSIUM 06/24/2019 No Stop Date Active doxepin 25 mg capsule RxNorm: 6686899 TAKE ONE CAPSULE B Y MOUTH EVERY NIGHT AT BEDTIME NEEDED FOR SLEEP 06/24/2019 08/20/2019 Inactive Singulair 10 mg tablet RxNorm: 618245 TAKE ONE TABLET BY MOUTH JOSÉ Y 06/24/2019 10/16/2019 Inactive lisinopril 20 mg tablet RxNorm: 202535 TAKE ONE TABLET BY MOUTH DAILY .... THIS REPLACE 10MG TABLETS 06/24/2019 09/10/2019 Inactive nystatin-triamcinolone 100,000 unit/g-0.1 % topical cream Rx Norm: 8519992 1 Application Topical two times a day 06/12/2019 06/19/2019 Inactive apply BID for 1 week nystatin-triamcinolone 100,000 unit/g-0.1 % topical cream Rx Norm: 4910238 1 Application Topical two times a day 06/12/2019 06/11/2019 Inactive apply BID for 1 week hydrocodone 10 mg-acetaminophen 325 mg tablet RxNorm: 607778 1-2 Tablet(s) PO QID as needed for pain MUST LAST 30 DAYS 05/28/2019 06/26/2019 Inactiv e (Response to an electronic controlled substance refill request - RxReferenceNumber: [id number]) baclofen 20 mg tablet RxNorm: 776366 1 Tablet(s) PO TID as needed for muscle spasm 05/19/2019 05/27/2019 Inactive gabapentin 300 mg capsule RxNorm: 804666 1 Capsule(s) PO QHS 201805/27/2019 Inactive lisinopril 20 mg tablet RxNorm: 106533 1 Tablet(s) PO Q D TAKE ONE TABLET BY MOUTH DAILY, REPLACES 10 MG DOSE 05/19/2019 06/23/2019 Inactive doxepin 25 mg capsule RxNorm: 5434210 TAKE ONE CAPSULE B Y MOUTH EVERY NIGHT AT BEDTIME NEEDED FOR SLEEP 05/16/2019 06/14/2019 Inactive lisinopril 20 mg tablet RxNorm: 930402 TAKE ONE TABLET BY MOUTH DAILY, REPLACES 10 MG DOSE 05/16/2019 05/18/2019 Inactive Singulair 10 mg tablet RxNorm: 763604 TAKE ONE TABLET BY MOUTH JOSÉ Y 05/16/2019 06/14/2019 Inactive gabapentin 300 mg capsule RxNorm: 807015 1 Capsule(s) PO QHS 201805/04/2019 Inactive estropipate 1.5 mg tablet RxNorm: 130180 1 Tablet(s) PO QD 05/05/2005/27/2019 Inactive estropipate 1.5 mg tablet RxNorm: 089061 1 Tablet(s) PO QD 05/05/2005/04/2019 Inactive gabapentin 300 mg capsule RxNorm: 401247 1 Capsule(s) PO QHS 201805/18/2019 Inactive hydrocodone 10 mg-acetaminophen 325 mg tablet RxNorm: 213377 1-2 Tablet(s) PO QID as needed for pain MUST LAST 30 DAYS 04/25/2019 05/24/2019 Inactiv e (Response to an electronic controlled substance refill request - RxReferenceNumber: [id number]) cyclobenzaprine 10 mg tablet RxNorm: 188437 TAKE ONE TA BLET BY MOUTH THREE TIMES A DAY NEEDED FOR MUSCLE SPASMS 04/24/2019 05/18/2019 Inactive metoprolol tartrate 100 mg tablet RxNorm: 672536 TAKE O NE TABLET BY MOUTH TWICE A DAY 04/24/2019 10/16/2019 Inactive Lyrica 75 mg capsule RxNorm: 900552 1 Capsule(s) PO QHS 03/25/2019 Inactive duloxetine 60 mg capsule,delayed release RxNorm: 272548 TAKE ONE CAPSULE BY MOUTH DAILY 03/21/2019 05/19/2019 Inactive triamterene 75 mg-hydrochlorothiazide 50 mg tablet RxNorm: 3 47237 TAKE ONE TABLET BY MOUTH DAILY 03/21/2019 05/19/2019 Inactive Klor-Con 8 mEq tablet,extended release RxNorm: 701870 T FARRUKH ONE TABLET BY MOUTH TWICE A DAY 03/21/2019 09/18/2019 Inactive Lipitor 10 mg tablet RxNorm: 170879 TAKE ONE TABLET BY MOUTH AT BEDTIME 03/21/2019 09/10/2019 Inactive clonidine HCl 0.1 mg tablet RxNorm: 238531 TAKE ONE TAB LET BY MOUTH FOUR TIMES A DAY 03/21/2019 05/19/2019 Inactive allopurinol 300 mg tablet RxNorm: 792614 TAKE ONE TABLET BY LOPEZ TH DAILY 03/21/2019 05/19/2019 Inactive hydrocodone 10 mg-acetaminophen 325 mg tablet RxNorm: 606601 1-2 Tablet(s) PO QID as needed for pain MUST LAST 30 DAYS 02/28/2019 03/29/2019 Inactiv e (Response to an electronic controlled substance refill request - RxReferenceNumber: [id number]) furosemide 40 mg tablet RxNorm: 206332 TAKE ONE TABLET BY MOUTH EVERY MORNING NEEDED FOR EDEMA . TAKE WITH POTASSIUM 02/21/2019 03/22/2019 Inactive cyclobenzaprine 10 mg tablet RxNorm: 403017 TAKE ONE TA BLET BY MOUTH THREE TIMES A DAY NEEDED FOR MUSCLE SPASMS 02/21/2019 04/21/2019 Inactive lisinopril 20 mg tablet RxNorm: 109918 TAKE ONE TABLET BY MOUTH DAILY, REPLACES 10 MG DOSE 02/21/2019 05/15/2019 Inactive doxepin 25 mg capsule RxNorm: 5100022 TAKE ONE CAPSULE B Y MOUTH EVERY NIGHT AT BEDTIME NEEDED FOR SLEEP 02/21/2019 05/15/2019 Inactive nystatin 100,000 unit/gram topical cream RxNorm: 001738 APPLY TO AFFECTED AREA(S) TWO TIMES A DAY 02/21/2019 03/22/2019 Inactive estradiol 1 mg tablet RxNorm: 443721 2 Tablet(s) PO QD replaces premarin 01/22/2019 05/04/2019 Inactive lisinopril 20 mg tablet RxNorm: 610108 TAKE ONE TABLET BY MOUTH DAILY, REPLACES 10 MG DOSE 01/20/2019 02/18/2019 Inactive cyclobenzaprine 10 mg tablet RxNorm: 347335 TAKE ONE TA BLET BY MOUTH THREE TIMES A DAY NEEDED FOR MUSCLE SPASMS 01/20/2019 02/18/2019 Inactive metoprolol tartrate 100 mg tablet RxNorm: 473617 TAKE O NE TABLET BY MOUTH TWICE A DAY 01/20/2019 02/18/2019 Inactive cyclobenzaprine 10 mg tablet RxNorm: 320870 TAKE ONE TA BLET BY MOUTH THREE TIMES A DAY NEEDED FOR MUSCLE SPASMS 12/19/2018 01/17/2019 Inactive lisinopril 20 mg tablet RxNorm: 530409 TAKE ONE TABLET BY MOUTH DAILY, REPLACES 10 MG DOSE 12/19/2018 01/17/2019 Inactive duloxetine 60 mg capsule,delayed release RxNorm: 555162 TAKE ONE CAPSULE BY MOUTH DAILY 12/19/2018 01/17/2019 Inactive Lipitor 10 mg tablet RxNorm: 293127 TAKE ONE TABLET BY MOUTH AT BEDTIME 12/19/2018 01/17/2019 Inactive cyclobenzaprine 10 mg tablet RxNorm: 751222 1 Tablet(s) PO TID as needed for muscle spasm 11/19/2018 12/18/2018 Inactive Singulair 10 mg tablet RxNorm: 712926 1 Tablet(s) PO QD 11/19/2018 Inactive lisinopril 20 mg tablet RxNorm: 142489 TAKE ONE TABLET BY MOUTH DAILY, REPLACES 10 MG DOSE 11/15/2018 12/18/2018 Inactive hydrocodone 10 mg-acetaminophen 325 mg tablet RxNorm: 396085 1-2 Tablet(s) PO QID as needed for pain MUST LAST 30 DAYS 11/13/2018 12/12/2018 Inactiv e (Response to an electronic controlled substance refill request - RxReferenceNumber: [id number]) nystatin 100,000 unit/gram topical cream RxNorm: 082984 APPLY TO AFFECTED AREA(S) TWO TIMES A DAY 10/23/2018 11/06/2018 Inactive lisinopril 20 mg tablet RxNorm: 848200 1 Tablet(s) PO QD replac es 10mg dose 10/18/2018 11/14/2018 Inactive hydrocodone 10 mg-acetaminophen 325 mg tablet RxNorm: 467886 1-2 Tablet(s) QID as needed for pain MUST LAST 30 DAYS 10/08/2018 11/06/2018 Inactive (Response to an electronic controlled substance refill request - RxReferenceNumber: [id number]) lisinopril 10 mg tablet RxNorm: 237608 1 Tablet(s) PO QD 10/03/2018 0 01/21/2019 Inactive Celebrex 200 mg capsule RxNorm: 098332 TAKE ONE CAPSULE BY MOUT H TWICE A DAY 09/30/2018 05/04/2019 Inactive cyclobenzaprine 10 mg tablet RxNorm: 460115 TAKE ONE TA BLET BY MOUTH THREE TIMES A DAY NEEDED FOR MUSCLE SPASMS 09/30/2018 11/18/2018 Inactive doxepin 25 mg capsule RxNorm: 9798190 TAKE ONE CAPSULE B Y MOUTH EVERY NIGHT AT BEDTIME NEEDED 09/05/2018 10/16/2018 Inactive omeprazole 40 mg capsule,delayed release RxNorm: 722332 TAKE ONE CAPSULE BY MOUTH DAILY 09/05/2018 01/21/2019 Inactive furosemide 40 mg tablet RxNorm: 628617 TAKE ONE TABLET BY MOUTH EVERY MORNING NEEDED FOR EDEMA . TAKE WITH POTASSIUM 09/05/2018 11/03/2018 Inactive phentermine 37.5 mg tablet RxNorm: 510110 1 Tablet(s) PO QAM 201701/21/2019 Inactive doxepin 25 mg capsule RxNorm: 1524483 1 Capsule(s) PO QH S as needed for sleep TAKE ONE CAPSULE BY MOUTH EVERY NIGHT AT BEDTIME NEEDED 08/27/2018 09/04/2018 Inactive Keflex 500 mg capsule RxNorm: 033013 1 Capsule(s) PO TID 08/09/2018 1 10/19/2017 Inactive Diflucan 100 mg tablet RxNorm: 565992 1 Tablet(s) PO QD 08/09/2018 Inactive Premarin 1.25 mg tablet RxNorm: 781820 2 Tablet(s) PO QD 08/09/2018 0 05/04/2019 Inactive Zofran ODT 4 mg disintegrating tablet RxNorm: 204571 1 Tablet(s) PO Q4H as needed for nausea 08/09/2018 01/21/2019 Inactive metoprolol tartrate 100 mg tablet RxNorm: 734074 TAKE O NE TABLET BY MOUTH TWICE A DAY 2018 10/04/2018 Inactive doxepin 25 mg capsule RxNorm: 1265243 TAKE ONE CAPSULE B Y MOUTH EVERY NIGHT AT BEDTIME NEEDED 2018 08/26/2018 Inactive cyclobenzaprine 10 mg tablet RxNorm: 284200 TAKE ONE TA BLET BY MOUTH THREE TIMES A DAY NEEDED FOR MUSCLE SPASMS 2018 09/29/2018 Inactive hydrocodone 10 mg-acetaminophen 325 mg tablet RxNorm: 662778 1-2 Tablet(s) QID as needed for pain MUST LAST 30 DAYS 07/29/2018 08/27/2018 Inactive (Response to an electronic controlled substance refill request - RxReferenceNumber: [id number]) nystatin 100,000 unit/gram topical powder RxNorm: 863482 Applic ation TOP BID 07/22/2018 08/04/2018 Inactive doxepin 25 mg capsule RxNorm: 1031764 1 Capsule(s) PO QHS as needed 07/22/2018 08/05/2018 Inactive triamterene 75 mg-hydrochlorothiazide 50 mg tablet RxNorm: 3 51732 TAKE ONE TABLET BY MOUTH DAILY 07/05/2018 10/02/2018 Inactive duloxetine 60 mg capsule,delayed release RxNorm: 500780 TAKE ONE CAPSULE BY MOUTH DAILY 07/05/2018 09/02/2018 Inactive Klor-Con 8 mEq tablet,extended release RxNorm: 394564 T FARRUKH ONE TABLET BY MOUTH TWICE A DAY 07/05/2018 10/02/2018 Inactive Lipitor 10 mg tablet RxNorm: 702083 TAKE ONE TABLET BY MOUTH AT BEDTIME 07/05/2018 09/02/2018 Inactive allopurinol 300 mg tablet RxNorm: 727671 TAKE ONE TABLET BY LOPEZ TH DAILY 07/05/2018 10/02/2018 Inactive clonidine HCl 0.1 mg tablet RxNorm: 955299 TAKE ONE TAB LET BY MOUTH FOUR TIMES A DAY 07/05/2018 10/02/2018 Inactive hydrocodone 10 mg-acetaminophen 325 mg tablet RxNorm: 172637 1-2 Tablet(s) QID as needed for pain MUST LAST 30 DAYS 06/28/2018 07/27/2018 Inactive (Response to an electronic controlled substance refill request - RxReferenceNumber: [id number]) MediHoney (calcium alginate-honey) 4" X 5" bandage RxNorm: 1 Application TOP QD 06/17/2018 06/26/2018 Inactive honey-hydrocolloid dressing 4" X 5" RxNorm: 1 Application TOP QD 06/17/2018 07/16/2018 Inactive furosemide 40 mg tablet RxNorm: 974739 TAKE ONE TABLET BY MOUTH EVERY MORNING NEEDED FOR EDEMA . TAKE WITH POTASSIUM 06/10/2018 07/09/2018 Inactive This is a refill request. hydrocodone 10 mg-acetaminophen 325 mg tablet RxNorm: 501898 1-2 Tablet(s) QID as needed for pain MUST LAST 30 DAYS 05/30/2018 06/27/2018 Inactive (Response to an electronic controlled substance refill request - RxReferenceNumber: [id number]) acyclovir 800 mg tablet RxNorm: 072246 1 Tablet(s) PO 5x day 201705/22/2018 Inactive Premarin 1.25 mg tablet RxNorm: 654230 1-2 Tablet(s) PO QD 05/15/20 18 07/13/2018 Inactive cyclobenzaprine 10 mg tablet RxNorm: 017426 1 Tablet(s) PO TID as needed for muscle spasm 05/09/2018 05/08/2018 Inactive Medrol (Dustin) 4 mg tablets in a dose pack RxNorm: 934030 Tablet(s) PO As Directed 05/02/2018 06/16/2018 Inactive hydrocodone 10 mg-acetaminophen 325 mg tablet RxNorm: 278862 1-2 Tablet(s) QID as needed for pain MUST LAST 30 DAYS 04/30/2018 05/29/2018 Inactive (Response to an electronic controlled substance refill request - RxReferenceNumber: [id number]) duloxetine 60 mg capsule,delayed release RxNorm: 433723 TAKE ONE CAPSULE BY MOUTH DAILY 04/16/2018 05/15/2018 Inactive Celebrex 200 mg capsule RxNorm: 568007 TAKE ONE CAPSULE BY MOUT H TWICE A DAY 04/16/2018 06/14/2018 Inactive Singulair 10 mg tablet RxNorm: 718056 TAKE ONE TABLET BY MOUTH JOSÉ Y 04/16/2018 11/19/2018 Inactive Lipitor 10 mg tablet RxNorm: 720485 TAKE ONE TABLET BY MOUTH AT BEDTIME 04/16/2018 05/15/2018 Inactive hydrocodone 10 mg-acetaminophen 325 mg tablet RxNorm: 040867 1-2 Tablet(s) QID as needed for pain MUST LAST 30 DAYS 03/29/2018 04/27/2018 Inactive (Response to an electronic controlled substance refill request - RxReferenceNumber: [id number]) cyclobenzaprine 10 mg tablet RxNorm: 635667 1 Tablet(s) PO TID as needed for muscle spasm 03/18/2018 05/09/2018 Inactive omeprazole 40 mg capsule,delayed release RxNorm: 181040 1 Capsu le(s) PO QD 02/26/2018 08/24/2018 Inactive hydrocodone 10 mg-acetaminophen 325 mg tablet RxNorm: 242400 1-2 Tablet(s) QID as needed for pain MUST LAST 30 DAYS 02/26/2018 03/27/2018 Inactive (Response to an electronic controlled substance refill request - RxReferenceNumber: [id number]) metoprolol tartrate 100 mg tablet RxNorm: 076380 1 Tablet(s) PO BID 02/18/2018 08/05/2018 Inactive Lyrica 75 mg capsule RxNorm: 583662 1 Capsule(s) PO QHS 01/30/2018 Inactive phentermine 37.5 mg tablet RxNorm: 590867 1 Tablet(s) PO QAM 201706/16/2018 Inactive hydrocodone 10 mg-acetaminophen 325 mg tablet RxNorm: 638059 1-2 Tablet(s) QID as needed for pain MUST LAST 30 DAYS 01/29/2018 02/25/2018 Inactive (Response to an electronic controlled substance refill request - RxReferenceNumber: [id number]) Klor-Con 8 mEq tablet,extended release RxNorm: 238794 1 Tablet( s) PO BID 01/14/2018 07/04/2018 Inactive allopurinol 300 mg tablet RxNorm: 771462 1 Tablet(s) PO QD 01/15/20 18 07/04/2018 Inactive Lipitor 10 mg tablet RxNorm: 942300 1 Tablet(s) PO QHS 01/14/201812/2017 Inactive triamterene 75 mg-hydrochlorothiazide 50 mg tablet RxNorm: 3 26206 1 Tablet(s) PO QD 01/14/2018 07/04/2018 Inactive hydrocodone 10 mg-acetaminophen 325 mg tablet RxNorm: 618830 1-2 Tablet(s) QID as needed for pain MUST LAST 30 DAYS 12/27/2017 01/25/2018 Inactive (Response to an electronic controlled substance refill request - RxReferenceNumber: [id number]) Onglyza 5 mg tablet RxNorm: 047333 1 Tablet(s) PO QD 12/18/201701/29 Inactive metformin 500 mg tablet RxNorm: 833021 1 Tablet(s) PO BID 12/11/2017 12/10/2017 Inactive metformin 500 mg tablet RxNorm: 791594 1 Tablet(s) PO BID 12/11/2017 12/17/2017 Inactive furosemide 40 mg tablet RxNorm: 313718 1 Tablet(s) PO Q AM prn edema--take with potassium 12/11/2017 06/08/2018 Inactive cyclobenzaprine 10 mg tablet RxNorm: 483876 1 Tablet(s) PO TID as needed for muscle spasm 12/11/2017 03/18/2018 Inactive hydrocodone 10 mg-acetaminophen 325 mg tablet RxNorm: 903947 1-2 Tablet(s) QID as needed for pain MUST LAST 30 DAYS 10/23/2017 11/21/2017 Inactive (Response to an electronic controlled substance refill request - RxReferenceNumber: [id number]) Lipitor 10 mg tablet RxNorm: 532244 1 Tablet(s) PO QHS 10/16/201703/2018 Inactive cyclobenzaprine 10 mg tablet RxNorm: 927153 1 Tablet(s) PO TID as needed for muscle spasm 10/09/2017 12/10/2017 Inactive hydroxyzine HCl 25 mg tablet RxNorm: 923128 1 Tablet(s) PO BID as needed for anxiety 09/20/2017 01/29/2018 Inactive Effexor XR 75 mg capsule,extended release RxNorm: 239786 1 Caps ule(s) PO QD 09/20/2017 01/29/2018 Inactive metoprolol tartrate 100 mg tablet RxNorm: 757937 1 Tablet(s) PO BID 08/20/2017 02/18/2018 Inactive baclofen 20 mg tablet RxNorm: 746838 1 Tablet(s) PO TID as needed for muscle spasm 08/20/2017 01/21/2019 Inactive clonidine HCl 0.1 mg tablet RxNorm: 758868 1 Tablet(s) PO QID 08/2005/16/2018 Inactive Seroquel 25 mg tablet RxNorm: 688074 1 Tablet(s) PO QHS 08/17/2017 Inactive Seroquel 25 mg tablet RxNorm: 510437 1 Tablet(s) PO QHS 08/17/2017 Inactive Diflucan 100 mg tablet RxNorm: 971599 TAKE ONE TABLET BY MOUTH JOSÉ Y 07/25/2017 08/07/2017 Inactive hydrocodone 10 mg-acetaminophen 325 mg tablet RxNorm: 614103 1-2 Tablet(s) QID as needed for pain MUST LAST 30 DAYS 07/19/2017 08/17/2017 Inactive (Response to an electronic controlled substance refill request - RxReferenceNumber: [id number]) clindamycin 300 mg capsule RxNorm: 994339 1 Capsule(s) PO TID 07/1907/28/2017 Inactive clotrimazole-betamethasone 1 %-0.05 % topical cream RxNorm: 756479 Application TOP BID to elbow rash 07/19/2017 06/16/2018 Inactive Singulair 10 mg tablet RxNorm: 745930 Tablet(s) TAKE ONE TABLET BY MOUTH DAILY 07/18/2017 04/13/2018 Inactive triamterene 75 mg-hydrochlorothiazide 50 mg tablet RxNorm: 3 69117 1 Tablet(s) PO QD 07/18/2017 01/14/2018 Inactive Celebrex 200 mg capsule RxNorm: 450492 Capsule(s) TAKE ONE CAPSULE BY MOUTH TWICE A DAY 07/18/2017 10/15/2017 Inactive hydrocodone 10 mg-acetaminophen 325 mg tablet RxNorm: 136347 1-2 Tablet(s) QID as needed for pain MUST LAST 30 DAYS 06/19/2017 07/18/2017 Inactive (Response to an electronic controlled substance refill request - RxReferenceNumber: [id number]) hydrocodone 10 mg-acetaminophen 325 mg tablet RxNorm: 485339 1-2 Tablet(s) QID as needed for pain MUST LAST 30 DAYS 06/19/2017 06/18/2017 Inactive (Response to an electronic controlled substance refill request - RxReferenceNumber: [id number]) baclofen 20 mg tablet RxNorm: 514143 1 Tablet(s) PO TID as needed for muscle spasm 06/18/2017 08/20/2017 Inactive Medrol (Dustin) 4 mg tablets in a dose pack RxNorm: 961740 Tablet(s) PO As Directed 06/05/2017 07/18/2017 Inactive omeprazole 40 mg capsule,delayed release RxNorm: 515986 1 Capsu le(s) PO QD 04/20/2017 10/16/2017 Inactive Premarin 1.25 mg tablet RxNorm: 359488 1-2 Tablet(s) PO QD 04/11/20 17 05/15/2018 Inactive duloxetine 60 mg capsule,delayed release RxNorm: 638085 1 Capsu le(s) PO QD 04/11/2017 09/19/2017 Inactive furosemide 40 mg tablet RxNorm: 092688 1 Tablet(s) PO Q AM prn edema--take with potassium 04/11/2017 12/11/2017 Inactive Klor-Con 8 mEq tablet,extended release RxNorm: 923063 1 Tablet( s) PO BID 04/11/2017 01/14/2018 Inactive Lipitor 10 mg tablet RxNorm: 230401 1 Tablet(s) PO QHS 04/11/201702/2018 Inactive amlodipine 5 mg-benazepril 20 mg capsule RxNorm: 618773 1 Capsu le(s) PO QD 04/11/2017 01/29/2018 Inactive allopurinol 300 mg tablet RxNorm: 294524 1 Tablet(s) PO QD 04/11/2001/14/2018 Inactive clonidine HCl 0.1 mg tablet RxNorm: 447313 1 Tablet(s) PO QID 04/0508/19/2017 Inactive baclofen 20 mg tablet RxNorm: 654305 1 Tablet(s) PO TID as needed for muscle spasm 04/02/2017 06/18/2017 Inactive Premarin 1.25 mg tablet RxNorm: 078138 1-2 Tablet(s) PO QD 03/20/20 17 04/10/2017 Inactive hydrocodone 10 mg-acetaminophen 325 mg tablet RxNorm: 355326 1-2 Tablet(s) QID as needed for pain MUST LAST 30 DAYS 03/14/2017 01/21/2019 Inactive (Response to an electronic controlled substance refill request - RxReferenceNumber: [id number]) metoprolol tartrate 100 mg tablet RxNorm: 337367 1 Tablet(s) PO BID 02/12/2017 08/20/2017 Inactive hydrocodone 10 mg-acetaminophen 325 mg tablet RxNorm: 162066 1-2 Tablet(s) QID as needed for pain MUST LAST 30 DAYS 02/08/2017 03/09/2017 Inactive (Response to an electronic controlled substance refill request - RxReferenceNumber: [id number]) metoprolol tartrate 100 mg tablet RxNorm: 558219 TAKE O NE TABLET BY MOUTH TWICE A DAY 01/11/2017 02/12/2017 Inactive metoprolol tartrate 100 mg tablet RxNorm: 017642 1 Tablet(s) PO BID 12/18/2016 12/17/2016 Inactive metoprolol tartrate 100 mg tablet RxNorm: 970693 1 Tablet(s) PO BID 12/18/2016 01/10/2017 Inactive furosemide 40 mg tablet RxNorm: 617344 1 Tablet(s) PO Q AM prn edema--take with potassium 12/13/2016 02/10/2017 Inactive amitriptyline 100 mg tablet RxNorm: 660160 1 Tablet(s) PO QHS 11/2812/12/2016 Inactive baclofen 20 mg tablet RxNorm: 306844 1 Tablet(s) PO TID as needed for muscle spasm 11/14/2016 04/01/2017 Inactive triamterene 75 mg-hydrochlorothiazide 50 mg tablet RxNorm: 3 35338 1 Tablet(s) PO QD 11/14/2016 11/13/2016 Inactive metolazone 2.5 mg tablet RxNorm: 189754 TAKE ONE TABLET BY MOUTH DAILY NEEDED FOR EDEMA 11/14/2016 12/12/2016 Inactive triamterene 75 mg-hydrochlorothiazide 50 mg tablet RxNorm: 3 22243 1 Tablet(s) PO QD 11/14/2016 07/18/2017 Inactive amitriptyline 50 mg tablet RxNorm: 570730 TAKE ONE TABL ET BY MOUTH AT BEDTIME NEEDED FOR SLEEP 11/14/2016 11/27/2016 Inactive Cymbalta 60 mg capsule,delayed release RxNorm: 533352 1 Capsule (s) PO QHS 11/14/2016 12/12/2016 Inactive clonidine HCl 0.1 mg tablet RxNorm: 100310 1 Tablet(s) PO QID 11/1304/04/2017 Inactive amitriptyline 50 mg tablet RxNorm: 896527 1 Tablet(s) P O QHS as needed for sleep 11/01/2016 11/27/2016 Inactive duloxetine 60 mg capsule,delayed release RxNorm: 499245 TAKE ONE CAPSULE BY MOUTH DAILY 10/20/2016 01/17/2017 Inactive allopurinol 300 mg tablet RxNorm: 859892 TAKE ONE TABLET BY LOPEZ TH DAILY 10/20/2016 01/16/2017 Inactive Lyrica 75 mg capsule RxNorm: 633133 TAKE ONE CAPSULE BY MOUTH EVERY NIGHT AT BEDTIME 10/20/2016 12/10/2016 Inactive Klor-Con 8 mEq tablet,extended release RxNorm: 115779 T FARRUKH ONE TABLET BY MOUTH TWICE A DAY 10/20/2016 01/17/2017 Inactive Celebrex 200 mg capsule RxNorm: 314097 TAKE ONE CAPSULE BY MOUT H TWICE A DAY 10/20/2016 07/18/2017 Inactive Bystolic 10 mg tablet RxNorm: 103513 TAKE ONE TABLET BY MOUTH EVERY NIGHT AT BEDTIME 10/20/2016 12/17/2016 Inactive amlodipine 5 mg-benazepril 20 mg capsule RxNorm: 902385 TAKE ONE CAPSULE BY MOUTH EVERY NIGHT AT BEDTIME -- TO REPLACE AMLODOPINE 10/20/20162016 Inactive Lipitor 10 mg tablet RxNorm: 586314 TAKE ONE TABLET BY MOUTH EVERY NIGHT AT BEDTIME 10/20/2016 01/17/2017 Inactive alprazolam 0.5 mg tablet RxNorm: 998126 3 Tablet(s) PO QHS as needed for sleep/anxiety 09/20/2016 10/31/2016 Inactive Tamiflu 75 mg capsule RxNorm: 820787 1 Capsule(s) PO QD 09/19/2016 Inactive Lyrica 75 mg capsule RxNorm: 083130 1 Capsule(s) PO QHS 09/19/2016 Inactive prednisone 20 mg tablet RxNorm: 555153 1 Tablet(s) PO QD 08/10/2016 1 10/17/2015 Inactive doxycycline hyclate 100 mg capsule RxNorm: 8682474 1 Capsule(s) PO BID 08/10/2016 08/19/2016 Inactive Medrol (Dustin) 4 mg tablets in a dose pack RxNorm: 855598 Tablet(s) PO As Directed 07/31/2016 08/22/2016 Inactive Singulair 10 mg tablet RxNorm: 382540 TAKE ONE TABLET BY MOUTH JOSÉ Y 07/27/2016 07/18/2017 Inactive hydrocodone 10 mg-acetaminophen 325 mg tablet RxNorm: 796135 1-2 Tablet(s) QID as needed for pain MUST LAST 30 DAYS 07/26/2016 08/24/2016 Inactive (Response to an electronic controlled substance refill request - RxReferenceNumber: [id number]) alprazolam 0.5 mg tablet RxNorm: 975025 3 Tablet(s) PO QHS as needed for anxiety or sleep 07/26/2016 09/20/2016 Inactive clindamycin 300 mg capsule RxNorm: 632099 1 Capsule(s) PO TID 07/2007/29/2016 Inactive Diflucan 100 mg tablet RxNorm: 535936 1 Tablet(s) PO QD 07/20/2016 Inactive Levaquin 500 mg tablet RxNorm: 658875 1 Tablet(s) PO QD 07/17/2016 Inactive Levaquin 500 mg tablet RxNorm: 554375 1 Tablet(s) PO QD 07/10/2016 Inactive Levaquin 500 mg tablet RxNorm: 204216 1 Tablet(s) PO QD 07/10/2016 Inactive mupirocin 2 % topical ointment RxNorm: 955468 TOP Apply topically to affected areas twice daily 07/06/2016 09/18/2016 Inactive Singulair 10 mg tablet RxNorm: 219477 TAKE ONE TABLET BY MOUTH JOSÉ Y 06/21/2016 01/21/2019 Inactive alprazolam 0.5 mg tablet RxNorm: 543075 TAKE THREE TABL ETS BY MOUTH AT BEDTIME NEEDED FOR SLEEP OR STRESS 05/22/2016 06/20/2016 Inactive triamterene 75 mg-hydrochlorothiazide 50 mg tablet RxNorm: 3 96181 1 Tablet(s) PO QD 04/26/2016 10/21/2016 Inactive Premarin 1.25 mg tablet RxNorm: 844749 1-2 Tablet(s) PO QD 04/26/20 16 03/20/2017 Inactive Klor-Con 8 mEq tablet,extended release RxNorm: 432025 1 Tablet( s) PO BID 04/26/2016 10/19/2016 Inactive Celebrex 200 mg capsule RxNorm: 493946 1 Capsule(s) PO BID TAKE ONE CAPSULE BY MOUTH EVERY DAY 04/26/2016 10/19/2016 Inactive Lipitor 10 mg tablet RxNorm: 503516 1 Tablet(s) PO QHS 04/26/201605/2017 Inactive allopurinol 300 mg tablet RxNorm: 603939 1 Tablet(s) PO QD TAKE ONE TABLET BY MOUTH EVERY DAY 04/26/2016 10/19/2016 Inactive amlodipine 5 mg-benazepril 20 mg capsule RxNorm: 579419 1 Capsule(s) PO QHS replaces amlodopine 04/26/2016 10/19/2016 Inactive duloxetine 60 mg capsule,delayed release RxNorm: 323829 1 Capsu le(s) PO QD 04/26/2016 10/19/2016 Inactive Bystolic 10 mg tablet RxNorm: 071886 1 Tablet(s) PO QHS 04/26/2016 Inactive Singulair 10 mg tablet RxNorm: 834703 1 Tablet(s) PO QD TAKE ONE TABLET BY MOUTH DAILY 04/26/2016 06/20/2016 Inactive clonidine HCl 0.1 mg tablet RxNorm: 993557 1 Tablet(s) PO QID 04/2610/22/2016 Inactive hydrocodone 10 mg-acetaminophen 325 mg tablet RxNorm: 645822 1-2 Tablet(s) QID as needed for pain TAKE ONE TO TWO TABLETS BY MOUTH FOUR TIMES A DAY . MUST LAST 30 DAYS 03/31/2016 04/29/2016 Inactive (Response to an electronic controlled substance refill request - [facility]: [id number]) Klor-Con 8 mEq tablet,extended release RxNorm: 536808 T FARRUKH ONE TABLET BY MOUTH TWICE A DAY 03/24/2016 09/29/2019 Inactive prednisone 20 mg tablet RxNorm: 899123 1 Tablet(s) PO QD 03/09/2016 0 03/08/2016 Inactive prednisone 20 mg tablet RxNorm: 331678 1 Tablet(s) PO QD 03/09/2016 0 03/13/2016 Inactive alprazolam 0.5 mg tablet RxNorm: 921791 3 Tablet(s) PO QHS as needed for sleep/stress 03/02/2016 01/21/2019 Inactive mupirocin 2 % topical ointment RxNorm: 778416 TOP twice daily to affected areas of face and neck 02/21/2016 04/25/2016 Inactive clonidine HCl 0.1 mg tablet RxNorm: 826453 TAKE ONE TAB LET BY MOUTH FOUR TIMES A DAY 02/15/2016 09/29/2019 Inactive clonidine HCl 0.1 mg tablet RxNorm: 158770 1 Tablet(s) PO QID 02/1404/25/2016 Inactive Premarin 1.25 mg tablet RxNorm: 570216 1-2 Tablet(s) PO QD 02/15/20 16 03/15/2016 Inactive Klor-Con 8 mEq tablet,extended release RxNorm: 755777 T FARRUKH ONE TABLET BY MOUTH TWICE A DAY 02/15/2016 03/15/2016 Inactive potassium chloride ER 20 mEq tablet,extended release(part/cr yst) RxNorm: 396077 2 Tablet(s) PO BID 02/15/2016 03/15/2016 Inactive Macrobid 100 mg capsule RxNorm: 336007 1 Capsule(s) PO BID 01/24/20 16 01/30/2016 Inactive prednisone 20 mg tablet RxNorm: 422302 Take 3tabs PO QD x 2 days, then 2 tabs PO QD x 2 days, then 1 tab PO QD x 2 days, then 1/2 tab PO QDy x 2 days 12/23/2015 04/25/2016 Inactive Klor-Con 8 mEq tablet,extended release RxNorm: 022692 T FARRUKH ONE TABLET BY MOUTH TWICE A DAY 12/20/2015 02/14/2016 Inactive alprazolam 1 mg tablet RxNorm: 960501 1 1/2 Tablet(s) PO QHS 201501/23/2016 Inactive nystatin 100,000 unit/gram topical cream RxNorm: 833983 APPLY TO AFFECTED AREA(S) TWO TIMES A DAY 11/30/2015 12/14/2015 Inactive Singulair 10 mg tablet RxNorm: 949672 TAKE ONE TABLET BY MOUTH JOSÉ Y 11/18/2015 04/25/2016 Inactive allopurinol 300 mg tablet RxNorm: 230644 1 Tablet(s) PO QD TAKE ONE TABLET BY MOUTH EVERY DAY 10/26/2015 04/22/2016 Inactive Singulair 10 mg tablet RxNorm: 119676 TAKE ONE TABLET BY MOUTH JOSÉ Y 10/26/2015 11/17/2015 Inactive duloxetine 60 mg capsule,delayed release RxNorm: 519252 1 Capsu le(s) PO QD 10/26/2015 04/22/2016 Inactive triamterene 75 mg-hydrochlorothiazide 50 mg tablet RxNorm: 3 65157 1 Tablet(s) PO QD 10/26/2015 11/14/2016 Inactive potassium chloride ER 20 mEq tablet,extended release(part/cr yst) RxNorm: 871990 2 Tablet(s) PO BID 10/26/2015 02/14/2016 Inactive Lipitor 10 mg tablet RxNorm: 353207 1 Tablet(s) PO QHS 10/26/2015 Inactive amlodipine 5 mg-benazepril 20 mg capsule RxNorm: 012275 1 Capsule(s) PO QHS replaces amlodopine 10/26/2015 04/22/2016 Inactive Bystolic 10 mg tablet RxNorm: 339664 1 Tablet(s) PO QHS 10/26/2015 Inactive amlodipine 5 mg-benazepril 20 mg capsule RxNorm: 590427 1 Capsule(s) PO QHS replaces amlodopine 10/06/2015 10/25/2015 Inactive amlodipine 5 mg tablet RxNorm: 240812 1 Tablet(s) PO QHS 09/30/2015 0 04/25/2016 Inactive metolazone 2.5 mg tablet RxNorm: 067427 TAKE ONE TABLET BY MOUTH DAILY NEEDED FOR EDEMA 09/30/2015 01/21/2019 Inactive duloxetine 60 mg capsule,delayed release RxNorm: 226496 1 Capsu le(s) PO QD 09/30/2015 10/25/2015 Inactive cephalexin 500 mg capsule RxNorm: 446450 1 Capsule(s) PO BID 201509/23/2015 Inactive mupirocin 2 % topical ointment RxNorm: 499140 TOP twice daily to affected areas of face and neck 09/14/2015 02/20/2016 Inactive baclofen 20 mg tablet RxNorm: 962354 1 Tablet(s) PO TID as needed for muscle spasm 09/01/2015 11/14/2016 Inactive clonidine HCl 0.1 mg tablet RxNorm: 795170 1 Tablet(s) PO QID 09/0102/14/2016 Inactive alprazolam 1 mg tablet RxNorm: 389383 1 1/2 Tablet(s) PO QHS 201409/09/2015 Inactive baclofen 20 mg tablet RxNorm: 754064 1 Tablet(s) PO TID as needed for muscle spasm 07/23/2015 09/01/2015 Inactive omeprazole 40 mg capsule,delayed release RxNorm: 568855 1 Capsu le(s) PO QD 07/23/2015 04/25/2016 Inactive alprazolam 1 mg tablet RxNorm: 654547 1 1/2 Tablet(s) PO QHS 201408/10/2015 Inactive Bystolic 10 mg tablet RxNorm: 337378 1 Tablet(s) PO BID 06/24/2015 Inactive allopurinol 300 mg tablet RxNorm: 797153 1 Tablet(s) PO QD TAKE ONE TABLET BY MOUTH EVERY DAY 06/23/2015 10/20/2015 Inactive alprazolam 1 mg tablet RxNorm: 678810 1 1/2 Tablet(s) PO QHS 201407/06/2015 Inactive clonidine HCl 0.1 mg tablet RxNorm: 688796 1 Tablet(s) PO QID 06/0209/01/2015 Inactive clonidine HCl 0.1 mg tablet RxNorm: 472606 1 Tablet(s) PO QID 06/0206/01/2015 Inactive Cymbalta 60 mg capsule,delayed release RxNorm: 388326 1 Capsule (s) PO QHS 06/02/2015 08/30/2015 Inactive Cymbalta 60 mg capsule,delayed release RxNorm: 658791 1 Capsule (s) PO QHS 06/02/2015 06/01/2015 Inactive clonidine HCl 0.1 mg tablet RxNorm: 912827 1 Tablet(s) PO TID 05/3106/01/2015 Inactive replaces 0.2mg dose metolazone 2.5 mg tablet RxNorm: 613728 TAKE ONE TABLET BY MOUTH DAILY NEEDED FOR EDEMA 05/21/2015 06/19/2015 Inactive Singulair 10 mg tablet RxNorm: 349406 TAKE ONE TABLET BY MOUTH JOSÉ Y 05/21/2015 10/17/2015 Inactive Cymbalta 30 mg capsule,delayed release RxNorm: 881346 1 Capsule (s) PO QHS 05/20/2015 11/14/2016 Inactive betamethasone valerate 0.1 % topical cream RxNorm: 120250 Appli cation TOP BID 05/10/2015 04/25/2016 Inactive Bactroban 2 % topical ointment RxNorm: 535800 Application TOP BID 0 05/10/2015 06/20/2015 Inactive baclofen 20 mg tablet RxNorm: 814194 1 Tablet(s) PO TID as needed 0 04/26/2015 07/23/2015 Inactive Lipitor 10 mg tablet RxNorm: 860640 1 Tablet(s) PO QHS 04/26/201508/2016 Inactive clonidine HCl 0.1 mg tablet RxNorm: 897607 1 Tablet(s) PO TID 04/2605/30/2015 Inactive replaces 0.2mg dose Klor-Con 8 mEq tablet,extended release RxNorm: 500335 1 Tablet( s) PO BID 04/26/2015 04/25/2016 Inactive metolazone 2.5 mg tablet RxNorm: 366098 1 Tablet(s) PO QD as ne eded for edema 04/26/2015 04/25/2015 Inactive triamterene 75 mg-hydrochlorothiazide 50 mg tablet RxNorm: 3 45739 1 Tablet(s) PO QD 04/26/2015 10/22/2015 Inactive Premarin 1.25 mg tablet RxNorm: 985618 1-2 Tablet(s) PO QD 04/26/20 15 10/22/2015 Inactive Bystolic 10 mg tablet RxNorm: 339102 1 Tablet(s) PO QAM TAKE ONE TABLET BY MOUTH EVERY MORNING 04/23/2015 06/23/2015 Inactive clonidine HCl 0.1 mg tablet RxNorm: 055797 1 Tablet(s) PO TID 03/2304/25/2015 Inactive replaces 0.2mg dose nystatin 100,000 unit/gram topical cream RxNorm: 470669 Applica tion TOP BID 03/23/2015 06/20/2015 Inactive baclofen 20 mg tablet RxNorm: 587004 1 Tablet(s) PO TID as needed 0 03/23/2015 04/25/2015 Inactive Premarin 1.25 mg tablet RxNorm: 949138 1-2 Tablet(s) PO QD 03/23/20 15 04/25/2015 Inactive Klor-Con 8 mEq tablet,extended release RxNorm: 282435 1 Tablet( s) PO BID 03/23/2015 04/25/2015 Inactive cefdinir 300 mg capsule RxNorm: 302679 2 Capsule(s) PO QD 03/16/2015 03/25/2015 Inactive baclofen 20 mg tablet RxNorm: 848013 1 Tablet(s) PO TID as needed 0 03/02/2015 03/22/2015 Inactive allopurinol 300 mg tablet RxNorm: 903244 1 Tablet(s) PO QD TAKE ONE TABLET BY MOUTH EVERY DAY 02/22/2015 05/22/2015 Inactive Klor-Con M20 mEq tablet,extended release RxNorm: 859794 2 Tablet(s) PO BID to use with lasix 02/22/2015 06/20/2015 Inactive clonidine HCl 0.1 mg tablet RxNorm: 313635 1 Tablet(s) PO TID 02/1903/22/2015 Inactive replaces 0.2mg dose Lipitor 10 mg tablet RxNorm: 535375 1 Tablet(s) PO QHS 01/20/201506/2015 Inactive Lipitor 10 mg tablet RxNorm: 859161 1 Tablet(s) PO QHS 01/20/2015 Inactive Singulair 10 mg tablet RxNorm: 591248 1 Tablet(s) PO QD TAKE ONE TABLET BY MOUTH EVERY DAY 11/20/2014 05/18/2015 Inactive Lipitor 10 mg tablet RxNorm: 135767 1 Tablet(s) PO QHS 11/20/201408/2015 Inactive allopurinol 300 mg tablet RxNorm: 943027 1 Tablet(s) PO QD TAKE ONE TABLET BY MOUTH EVERY DAY 11/20/2014 02/16/2015 Inactive Bystolic 10 mg tablet RxNorm: 318430 1 Tablet(s) PO QAM TAKE ONE TABLET BY MOUTH EVERY MORNING 11/20/2014 04/22/2015 Inactive Klor-Con 8 mEq tablet,extended release RxNorm: 794678 1 Tablet( s) PO BID 11/20/2014 02/17/2015 Inactive baclofen 20 mg tablet RxNorm: 160273 1 Tablet(s) PO TID as needed 0 11/20/2014 01/21/2019 Inactive baclofen 20 mg tablet RxNorm: 346160 1 Tablet(s) PO TID as needed 0 10/27/2014 11/19/2014 Inactive baclofen 20 mg tablet RxNorm: 486165 1 Tablet(s) PO TID as needed 0 10/26/2014 03/01/2015 Inactive allopurinol 300 mg tablet RxNorm: 863414 1 Tablet(s) PO QD TAKE ONE TABLET BY MOUTH EVERY DAY 10/26/2014 11/20/2014 Inactive Bystolic 10 mg tablet RxNorm: 874057 1 Tablet(s) PO QAM TAKE ONE TABLET BY MOUTH EVERY MORNING 10/26/2014 11/20/2014 Inactive clonidine HCl 0.1 mg tablet RxNorm: 902124 1 Tablet(s) PO TID 09/2805/27/2019 Inactive replaces 0.2mg dose clonidine HCl 0.1 mg tablet RxNorm: 621344 1 Tablet(s) PO TID 09/2802/18/2015 Inactive replaces 0.2mg dose baclofen 20 mg tablet RxNorm: 824086 1 Tablet(s) PO TID as needed 1 11/01/2013 08/30/2014 Inactive Lipitor 10 mg tablet RxNorm: 520277 1 Tablet(s) PO QHS 08/31/2014 Inactive baclofen 20 mg tablet RxNorm: 684208 1 Tablet(s) PO TID as needed 1 11/01/2013 10/26/2014 Inactive triamterene 75 mg-hydrochlorothiazide 50 mg tablet RxNorm: 3 06916 1 Tablet(s) PO QD 08/31/2014 02/26/2015 Inactive Klor-Con 8 mEq tablet,extended release RxNorm: 174010 1 Tablet( s) PO BID 08/31/2014 11/20/2014 Inactive baclofen 20 mg tablet RxNorm: 842680 1 Tablet(s) PO TID as needed 1 09/30/2013 10/25/2014 Inactive baclofen 20 mg tablet RxNorm: 404363 1 Tablet(s) PO TID as needed 1 09/30/2013 08/31/2014 Inactive omeprazole 40 mg capsule,delayed release RxNorm: 448173 1 Capsu le(s) PO QD 07/21/2014 07/23/2015 Inactive Flonase 50 mcg/actuation nasal spray,suspension RxNorm: 8963 23 1 [place] NASAL BID 07/15/2014 04/09/2017 Inactive hydrocodone 10 mg-acetaminophen 325 mg tablet RxNorm: 574563 1-2 Tablet(s) QID as needed for pain TAKE ONE TO TWO TABLETS BY MOUTH FOUR TIMES A DAY . MUST LAST 30 DAYS 06/30/2014 07/27/2014 Inactive (Response to an electronic controlled substance refill request - RxReferenceNumber: [id number]) baclofen 20 mg tablet RxNorm: 342243 1 Tablet(s) PO TID as needed 1 07/31/2014 Inactive Singulair 10 mg tablet RxNorm: 709246 1 Tablet(s) PO QD TAKE ONE TABLET BY MOUTH EVERY DAY 05/25/2014 11/20/2014 Inactive Bystolic 10 mg tablet RxNorm: 854429 TAKE ONE TABLET BY MOUTH E VERY MORNING 05/25/2014 09/21/2014 Inactive allopurinol 300 mg tablet RxNorm: 699703 1 Tablet(s) PO QD TAKE ONE TABLET BY MOUTH EVERY DAY 05/25/2014 10/21/2014 Inactive baclofen 20 mg tablet RxNorm: 638803 1 Tablet(s) PO TID as needed 0 05/25/2014 06/29/2014 Inactive allopurinol 300 mg tablet RxNorm: 073455 TAKE ONE TABLET BY LOPEZ TH EVERY DAY 05/25/2014 09/21/2014 Inactive Singulair 10 mg tablet RxNorm: 902286 1 Tablet(s) PO QD TAKE ONE TABLET BY MOUTH EVERY DAY 05/25/2014 05/24/2014 Inactive Bystolic 10 mg tablet RxNorm: 199579 1 Tablet(s) PO QAM TAKE ONE TABLET BY MOUTH EVERY MORNING 05/25/2014 10/21/2014 Inactive metolazone 2.5 mg tablet RxNorm: 830554 1 Tablet(s) PO QD as ne eded for edema 05/18/2014 04/25/2015 Inactive Lasix 40 mg tablet RxNorm: 696804 1 Tablet(s) PO QAM s hould take potassium supplementation with this medication 05/14/2014 05/17/2014 Inactive hydrocodone 10 mg-acetaminophen 325 mg tablet RxNorm: 936485 1-2 Tablet(s) QID as needed for pain TAKE ONE TO TWO TABLETS BY MOUTH FOUR TIMES A DAY . MUST LAST 30 DAYS 05/07/2014 06/05/2014 Inactive (Response to an electronic controlled substance refill request - RxReferenceNumber: [id number]) alprazolam 0.5 mg tablet RxNorm: 913903 TAKE ONE TABLET BY MOUTH TWICE A DAY , MUST LAST 30 DAYS 05/07/2014 05/22/2016 Inactive (Response to a n electronic controlled substance refill request - RxReferenceNumber: [id number]) diclofenac sodium 75 mg tablet,delayed release RxNorm: 94296 6 1 Tablet(s) PO BID for pain 04/24/2014 07/20/2014 Inactive Celebrex 200 mg capsule RxNorm: 577460 TAKE ONE CAPSULE BY MOUT H EVERY DAY 04/24/2014 07/20/2014 Inactive alprazolam 0.5 mg tablet RxNorm: 491382 TAKE ONE TABLET BY MOUTH TWICE A DAY , MUST LAST 30 DAYS 03/24/2014 04/22/2014 Inactive (Response to a n electronic controlled substance refill request - RxReferenceNumber: [id number]) diclofenac sodium 75 mg tablet,delayed release RxNorm: 18122 6 1 Tablet(s) PO BID for pain 03/24/2014 04/24/2014 Inactive clonidine HCl 0.1 mg tablet RxNorm: 133866 1 Tablet(s) PO TID 03/2409/28/2014 Inactive replaces 0.2mg dose Klor-Con 8 mEq tablet,extended release RxNorm: 799664 1 Tablet( s) PO BID 02/26/2014 08/31/2014 Inactive diclofenac sodium 75 mg tablet,delayed release RxNorm: 25718 6 1 Tablet(s) PO BID for pain 02/25/2014 03/24/2014 Inactive hydrocodone 10 mg-acetaminophen 325 mg tablet RxNorm: 153875 1-2 Tablet(s) QID as needed for pain TAKE ONE TO TWO TABLETS BY MOUTH FOUR TIMES A DAY . MUST LAST 30 DAYS 02/25/2014 03/26/2014 Inactive (Response to an electronic controlled substance refill request - RxReferenceNumber: [id number]) alprazolam 0.5 mg tablet RxNorm: 894833 Tablet(s) PO BI D as needed for anxiety TAKE ONE TABLET BY MOUTH TWICE A DAY , MUST LAST 30 DAYS 02/25/2014 Inactive (Response to an electronic controlled [place] bstance refill request - RxReferenceNumber: [id number]) [AttnRPh: Saving apply/adjudicate RxGRP:SG20 RxBIN:[id number] RxPCN: ID#:[id number]] alprazolam 0.5 mg tablet RxNorm: 335957 Tablet(s) TAKE ONE TABLET BY MOUTH TWICE A DAY , MUST LAST 30 DAYS 01/27/2014 02/24/2014 Inactive (Respo nse to an electronic controlled substance refill request - RxReferenceNumber: [id number]) [AttnRPh: Saving apply/adjudicate RxGRP:SG20 RxBIN:[id number] RxPCN: ID#:[id number]] hydrocodone 10 mg-acetaminophen 325 mg tablet RxNorm: 567629 1-2 Tablet(s) QID as needed for pain TAKE ONE TO TWO TABLETS BY MOUTH FOUR TIMES A DAY . MUST LAST 30 DAYS 01/27/2014 02/24/2014 Inactive (Response to an electronic controlled substance refill request - RxReferenceNumber: [id number]) alprazolam 0.5 mg tablet RxNorm: 703657 TAKE ONE TABLET BY MOUTH TWICE A DAY , MUST LAST 30 DAYS 01/27/2014 01/26/2014 Inactive (Response to a n electronic controlled substance refill request - RxReferenceNumber: [id number]) Premarin 1.25 mg tablet RxNorm: 496208 1-2 Tablet(s) PO QD 01/28/20 14 07/25/2014 Inactive alprazolam 0.5 mg tablet RxNorm: 026439 TAKE ONE TABLET BY MOUTH TWICE A DAY , MUST LAST 30 DAYS 01/27/2014 01/27/2014 Inactive (Response to a n electronic controlled substance refill request - RxReferenceNumber: [id number]) hydrocodone 10 mg-acetaminophen 325 mg tablet RxNorm: 129827 TAKE ONE TO TWO TABLETS BY MOUTH FOUR TIMES A DAY . MUST LAST 30 DAYS 01/27/20142013 Inactive (Response to an electronic controlled [place] bstance refill request - RxReferenceNumber: [id number]) Celebrex 200 mg capsule RxNorm: 551429 1 Capsule(s) PO QD TAKE ONE CAPSULE BY MOUTH EVERY DAY 12/29/2013 04/27/2014 Inactive hydrocodone 10 mg-acetaminophen 325 mg tablet RxNorm: 244735 1-2 Tablet(s) PO QID as needed for severe pain 12/29/2013 01/27/2014 Inactive allopurinol 300 mg tablet RxNorm: 554789 1 Tablet(s) PO QD TAKE ONE TABLET BY MOUTH EVERY DAY 12/29/2013 05/24/2014 Inactive alprazolam 0.5 mg tablet RxNorm: 734608 TAKE ONE TABLET BY MOUTH TWICE A DAY , MUST LAST 30 DAYS 12/29/2013 01/27/2014 Inactive (Response to a n electronic controlled substance refill request - RxReferenceNumber: [id number]) Celebrex 200 mg capsule RxNorm: 181423 1 Capsule(s) PO QD TAKE ONE CAPSULE BY MOUTH EVERY DAY 12/29/2013 12/29/2013 Inactive Bystolic 10 mg tablet RxNorm: 740953 1 Tablet(s) PO QAM TAKE ONE TABLET BY MOUTH EVERY MORNING 12/29/2013 05/24/2014 Inactive Bystolic 10 mg tablet RxNorm: 230966 1 Tablet(s) PO QAM TAKE ONE TABLET BY MOUTH EVERY MORNING 12/29/2013 12/29/2013 Inactive Singulair 10 mg tablet RxNorm: 179346 1 Tablet(s) PO QD TAKE ONE TABLET BY MOUTH EVERY DAY 12/29/2013 05/25/2014 Inactive hydrocodone 10 mg-acetaminophen 325 mg tablet RxNorm: 347696 TAKE ONE TO TWO TABLETS BY MOUTH FOUR TIMES A DAY . MUST LAST 30 DAYS 12/29/20132013 Inactive (Response to an electronic controlled [place] bstance refill request - RxReferenceNumber: [id number]) Trazadone 75mg Tablet RxNorm: 1 Tablet(s) PO QHS as needed 03/23/2014 Inactive Trazadone 75mg Tablet RxNorm: 1 Tablet(s) PO QHS 12/24/20132014 Inactive Soma 350 mg tablet RxNorm: 982873 Tablet(s) PO TAKE ON E TABLET BY MOUTH THREE TIMES A DAY NEEDED FOR MUSCLE SPASMS. THIS MUST LAST 30 DAYS BETWEEN REFILLS. 12/10/2013 12/22/2013 Inactive (Appended: Cont rolled substance eRx refill - RxReferenceNumber: [id number]) diclofenac sodium 75 mg tablet,delayed release RxNorm: 54950 6 1 Tablet(s) PO BID for pain 12/10/2013 02/24/2014 Inactive allopurinol 300 mg tablet RxNorm: 229958 1 Tablet(s) PO QD 11/20/19 14 12/29/2013 Inactive alprazolam 0.5 mg tablet RxNorm: 865687 2 Tablet(s) PO BID 11/13/19 14 12/29/2013 Inactive prn clonidine 0.1 mg tablet RxNorm: 996305 1 Tablet(s) PO TID 11/12/2013 02/09/2014 Inactive replaces 0.2mg dose Klor-Con M20 mEq tablet,extended release RxNorm: 842869 2 Tablet(s) PO BID to use with lasix 11/12/2013 05/10/2014 Inactive Singulair 10 mg tablet RxNorm: 588150 1 Tablet(s) PO QD 11/12/2013 Inactive hydrocodone 10 mg-acetaminophen 325 mg tablet RxNorm: 768928 1-2 Tablet(s) PO QID as needed for severe pain 11/12/2013 12/28/2013 Inactive Bystolic 10 mg tablet RxNorm: 676439 1 Tablet(s) PO QAM 11/12/2013 Inactive Soma 350 mg tablet RxNorm: 946908 Tablet(s) PO TAKE ON E TABLET BY MOUTH THREE TIMES A DAY NEEDED FOR MUSCLE SPASMS. THIS MUST LAST 30 DAYS BETWEEN REFILLS. 10/13/2013 12/10/2013 Inactive (Appended: Cont rolled substance eRx refill - RxReferenceNumber: [id number]) hydrocodone 10 mg-acetaminophen 325 mg tablet RxNorm: 955716 1-2 Tablet(s) PO QID as needed for severe pain 10/03/2013 11/11/2013 Inactive diclofenac sodium 75 mg tablet,delayed release RxNorm: 98068 8 1 Tablet(s) PO BID for pain 09/11/2013 12/10/2013 Inactive alprazolam 0.5 mg tablet RxNorm: 524368 1 Tablet(s) PO BID May refill on 04/26/13 09/01/2013 10/30/2013 Inactive prn hydrocodone 10 mg-acetaminophen 325 mg tablet RxNorm: 807521 1-2 Tablet(s) PO QID as needed for severe pain 09/01/2013 10/02/2013 Inactive triamterene 75 mg-hydrochlorothiazide 50 mg tablet RxNorm: 3 69349 1 Tablet(s) PO QD 08/04/2013 08/31/2014 Inactive cyclobenzaprine 10 mg tablet RxNorm: 503285 1 Tablet(s) PO TID prn spasm 08/04/2013 08/13/2013 Inactive clonidine 0.1 mg tablet RxNorm: 786279 1 Tablet(s) PO TID 08/04/2013 11/11/2013 Inactive replaces 0.2mg dose cyclobenzaprine 10 mg tablet RxNorm: 050016 1 Tablet(s) PO TID prn spasm 07/23/2013 08/01/2013 Inactive hydrocodone 10 mg-acetaminophen 325 mg tablet RxNorm: 671936 2 1-2 Tablet(s) PO QID as needed for severe pain 06/09/2013 08/07/2013 Inactive Singulair 10 mg tablet RxNorm: 080746 1 Tablet(s) PO QD 05/29/2013 Inactive Klor-Con 8 mEq tablet,extended release RxNorm: 432140 1 Tablet( s) PO BID 05/29/2013 02/26/2014 Inactive allopurinol 300 mg tablet RxNorm: 289020 1 Tablet(s) PO QD 05/29/20 13 11/19/2013 Inactive Bystolic 10 mg tablet RxNorm: 572104 1 Tablet(s) PO QAM take one daily in the morning. 05/29/2013 11/11/2013 Inactive scopolamine 1.5 mg 72 hr Transderm Patch RxNorm: 151508 Application TD Q72H for motion sickness 05/26/2013 07/22/2013 Inactive Soma 350 mg tablet RxNorm: 176073 1 Tablet(s) PO TID as needed for spasm 05/19/2013 10/13/2013 Inactive diclofenac sodium 75 mg tablet,delayed release RxNorm: 75096 8 1 Tablet(s) PO BID for pain 05/14/2013 07/22/2013 Inactive allopurinol 300 mg tablet RxNorm: 732839 1 Tablet(s) PO QD 04/25/20 13 05/28/2013 Inactive alprazolam 0.5 mg tablet RxNorm: 543647 1 Tablet(s) PO BID May refill on 04/26/13 04/25/2013 06/23/2013 Inactive prn Celebrex 200 mg capsule RxNorm: 011220 1 Capsule(s) PO QD 04/16/2013 12/29/2013 Inactive alprazolam 0.5 mg tablet RxNorm: 414043 1 Tablet(s) PO BID May refill on 04/26/13 04/16/2013 04/24/2013 Inactive prn Soma 350 mg tablet RxNorm: 153719 1 Tablet(s) PO TID as needed for spasm 04/16/2013 No Stop Date Active Lasix 40 mg tablet RxNorm: 156500 1 Tablet(s) PO QAM s hould take potassium supplementation with this medication 04/16/2013 06/14/2013 Inactive clonidine 0.1 mg tablet RxNorm: 560551 1 Tablet(s) PO TID 04/16/2013 08/03/2013 Inactive replaces 0.2mg dose prednisone 20 mg tablet RxNorm: 114214 1 Tablet(s) PO BID 04/16/2013 04/20/2013 Inactive diclofenac sodium 75 mg tablet,delayed release RxNorm: 28078 8 1 Tablet(s) PO BID for pain 04/14/2013 05/13/2013 Inactive hydrocodone 10 mg-acetaminophen 325 mg tablet RxNorm: 489536 2 1-2 Tablet(s) PO QID as needed for severe pain 04/14/2013 No Stop Date Active Lasix 40 mg tablet RxNorm: 464867 1 Tablet(s) PO QAM s hould take potassium supplementation with this medication 03/31/2013 04/15/2013 Inactive Celebrex 200 mg capsule RxNorm: 698199 1 Capsule(s) PO QD 03/31/2013 04/15/2013 Inactive alprazolam 0.5 mg tablet RxNorm: 612889 1 Tablet(s) PO BID 03/28/20 13 04/15/2013 Inactive prn hydrocodone 10 mg-acetaminophen 325 mg tablet RxNorm: 126949 2 1-2 Tablet(s) PO QID as needed for severe pain 03/10/2013 No Stop Date Active metformin ER 500 mg 24 hr tablet,extended release RxNorm: 86 1018 1 Tablet(s) PO QD 03/06/2013 07/22/2013 Inactive clindamycin 300 mg capsule RxNorm: 509033 2 Capsule(s) PO TID 03/0503/14/2013 Inactive Zaroxolyn 2.5 mg tablet RxNorm: 445147 1 Tablet(s) PO QAM 03/05/2013 05/19/2015 Inactive amlodipine 10 mg tablet RxNorm: 738160 1 Tablet(s) PO QD 03/03/2013 0 05/25/2013 Inactive Norvasc 10 mg tablet RxNorm: 575364 1 Tablet(s) PO QD 02/28/201307/11 Inactive Celebrex 200 mg capsule RxNorm: 994734 1 Capsule(s) PO QD 02/28/2013 03/30/2013 Inactive diclofenac sodium 75 mg tablet,delayed release RxNorm: 95199 8 1 Tablet(s) PO BID for pain 02/14/2013 03/15/2013 Inactive Soma 350 mg tablet RxNorm: 723376 1 Tablet(s) PO TID as needed for spasm 02/14/2013 No Stop Date Active hydrocodone 10 mg-acetaminophen 325 mg tablet RxNorm: 102378 2 1-2 Tablet(s) PO QID as needed for severe pain 02/14/2013 No Stop Date Active Norvasc 10 mg tablet RxNorm: 829905 1 Tablet(s) PO QD 02/10/201302/09 Inactive Celebrex 200 mg capsule RxNorm: 534991 1 Capsule(s) PO QD 01/27/2013 01/26/2013 Inactive Premarin 1.25 mg tablet RxNorm: 976206 1-2 Tablet(s) PO QD 01/28/20 13 06/25/2013 Inactive alprazolam 0.5 mg tablet RxNorm: 304489 1 Tablet(s) PO BID 01/28/20 13 02/25/2013 Inactive prn amlodipine 5 mg tablet RxNorm: 027753 1 Tablet(s) PO QD 01/27/2013 Inactive Celebrex 200 mg capsule RxNorm: 524609 1 Capsule(s) PO QD 01/27/2013 02/27/2013 Inactive gabapentin 600 mg tablet RxNorm: 425944 1 Tablet(s) PO QHS 01/16/20 13 07/22/2013 Inactive Soma 350 mg tablet RxNorm: 587397 1 Tablet(s) PO TID as needed for spasm 01/15/2013 No Stop Date Active hydrocodone 10 mg-acetaminophen 325 mg tablet RxNorm: 540096 2 1-2 Tablet(s) PO QID as needed for severe pain 01/15/2013 No Stop Date Active Soma 350 mg tablet RxNorm: 396326 1 Tablet(s) PO TID as needed for spasm 01/13/2013 No Stop Date Active alprazolam 0.5 mg tablet RxNorm: 644687 1 Tablet(s) PO BID 12/31/19 13 01/26/2013 Inactive prn diclofenac sodium 75 mg tablet,delayed release RxNorm: 19438 8 1 Tablet(s) PO BID for pain 12/09/2012 01/07/2013 Inactive gabapentin 600 mg tablet RxNorm: 891035 1 Tablet(s) PO QHS 12/10/19 13 01/07/2013 Inactive hydrocodone 10 mg-acetaminophen 325 mg tablet RxNorm: 843337 2 1-2 Tablet(s) PO QID as needed for severe pain 12/02/2012 No Stop Date Active Levaquin 750 mg tablet RxNorm: 557178 1 Tablet(s) PO QD 11/21/2012 Inactive Singulair 10 mg tablet RxNorm: 334393 1 Tablet(s) PO QD 11/11/2012 Inactive clonidine 0.2 mg tablet RxNorm: 782976 1 Tablet(s) PO TID 11/11/2012 04/15/2013 Inactive alprazolam 0.5 mg tablet RxNorm: 453646 1 Tablet(s) PO BID 11/12/19 13 12/10/2012 Inactive prn Klor-Con 8 mEq tablet,extended release RxNorm: 574538 1 Tablet( s) PO BID 11/11/2012 03/04/2013 Inactive hydrocodone 10 mg-acetaminophen 325 mg tablet RxNorm: 016182 2 1-2 Tablet(s) PO QID as needed for severe pain 11/06/2012 No Stop Date Active alprazolam 0.5 mg tablet RxNorm: 993045 1 Tablet(s) PO BID 10/15/19 13 11/10/2012 Inactive prn hydrocodone-acetaminophen 10 mg-325 mg tablet RxNorm: 633771 2 1-2 Tablet(s) PO QID as needed for severe pain 10/10/2012 10/09/2012 Inactive allopurinol 300 mg tablet RxNorm: 489727 1 Tablet(s) PO QD 09/20/19 13 12/18/2012 Inactive alprazolam 0.5 mg tablet RxNorm: 639344 1 Tablet(s) PO BID 09/17/19 13 10/14/2012 Inactive prn hydrocodone-acetaminophen 10 mg-325 mg tablet RxNorm: 628645 2 1-2 Tablet(s) PO QID as needed for severe pain 08/22/2012 08/21/2012 Inactive Norvasc 10 mg tablet RxNorm: 043848 1 Tablet(s) PO QD 08/12/201201/10 Inactive Premarin 1.25 mg tablet RxNorm: 768068 1-2 Tablet(s) PO QD 07/30/20 12 12/26/2012 Inactive alprazolam 0.5 mg tablet RxNorm: 767981 1 Tablet(s) PO BID 07/29/20 12 08/27/2012 Inactive prn Klor-Con 8 mEq tablet,extended release RxNorm: 659844 1 Tablet( s) PO BID 07/29/2012 11/10/2012 Inactive hydrocodone-acetaminophen 10 mg-325 mg tablet RxNorm: 539302 2 1-2 Tablet(s) PO QID as needed for severe pain 07/29/2012 No Stop Date Active Premarin 1.25 mg tablet RxNorm: 731007 1-2 Tablet(s) PO QD 07/29/20 12 07/29/2012 Inactive clonidine 0.2 mg tablet RxNorm: 578670 1 Tablet(s) PO TID 07/29/2012 10/28/2012 Inactive ketorolac 10 mg tablet RxNorm: 167656 1 Tablet(s) PO QID prn he adache 07/18/2012 No Stop Date Active hydrocodone-acetaminophen 10 mg-325 mg tablet RxNorm: 313468 2 1-2 Tablet(s) PO QID as needed for severe pain 07/03/2012 No Stop Date Active amlodipine 5 mg tablet RxNorm: 389460 1 Tablet(s) PO QD 07/02/2012 Inactive allopurinol 300 mg tablet RxNorm: 228757 1 Tablet(s) PO QD 07/02/20 12 09/19/2012 Inactive Celebrex 200 mg capsule RxNorm: 021462 1 Capsule(s) PO QD for j oint pain 06/26/2012 10/23/2012 Inactive diclofenac sodium 75 mg tablet,delayed release RxNorm: 23409 8 1 Tablet(s) PO BID for pain 06/19/2012 09/16/2012 Inactive hydrocodone-acetaminophen 10 mg-325 mg tablet RxNorm: 136756 2 1-2 Tablet(s) PO QID as needed for severe pain 06/10/2012 No Stop Date Active alprazolam 0.5 mg tablet RxNorm: 795869 1 Tablet(s) PO BID 06/03/20 12 07/02/2012 Inactive prn ketorolac 10 mg tablet RxNorm: 878335 1 Tablet(s) PO Q8H 05/27/2012 0 01/21/2019 Inactive as needed for headache hydrocodone-acetaminophen 10 mg-325 mg tablet RxNorm: 106853 2 1-2 Tablet(s) PO QID as needed for severe pain 05/15/2012 No Stop Date Active allopurinol 300 mg tablet RxNorm: 344376 1 Tablet(s) PO QD 05/14/20 12 06/12/2012 Inactive allopurinol 300 mg tablet RxNorm: 625943 1 Tablet(s) PO QD 05/14/2005/13/2012 Inactive amlodipine 5 mg tablet RxNorm: 002086 1 Tablet(s) PO QD 05/01/2012 Inactive amlodipine 5 mg Tab RxNorm: 802395 1 Tablet(s) PO QD 05/01/201204/30 Inactive Celebrex 200 mg capsule RxNorm: 492552 1 Capsule(s) PO QD for j oint pain 05/01/2012 06/25/2012 Inactive Singulair 10 mg tablet RxNorm: 285913 1 Tablet(s) PO QD 05/01/2012 Inactive alprazolam 0.5 mg tablet RxNorm: 889031 1 Tablet(s) PO BID 05/01/20 12 05/30/2012 Inactive prn Celebrex 200 mg Cap RxNorm: 093015 1 Capsule(s) PO QD for joint radu n 05/01/2012 04/30/2012 Inactive hydrocodone-acetaminophen 10 mg-325 mg tablet RxNorm: 392469 2 1-2 Tablet(s) PO QID as needed for severe pain 04/19/2012 No Stop Date Active Lasix 40 mg tablet RxNorm: 378265 1 Tablet(s) PO QAM s hould take potassium supplementation with this medication 04/05/2012 06/03/2012 Inactive alprazolam 0.5 mg Tab RxNorm: 059042 1 Tablet(s) PO BID 04/05/2012 Inactive prn hydrocodone-acetaminophen 10 mg-325 mg Tab RxNorm: 2295297 1-2 Tablet(s) PO QID as needed for severe pain 03/25/2012 03/24/2012 Inactive clonidine 0.2 mg Tab RxNorm: 323603 1 Tablet(s) PO TID 03/08/2012 Inactive alprazolam 0.5 mg Tab RxNorm: 292622 1 Tablet(s) PO BID 03/08/2012 Inactive prn Soma 350 mg tablet RxNorm: 551254 1 Tablet(s) PO TID for spasm 02/0903/18/2012 Inactive clonidine 0.2 mg tablet RxNorm: 880130 1 Tablet(s) PO TID 03/08/2012 07/28/2012 Inactive Celebrex 200 mg Cap RxNorm: 986960 1 Capsule(s) PO QD for joint radu n 03/01/2012 04/29/2012 Inactive amlodipine 5 mg Tab RxNorm: 011894 1 Tablet(s) PO QD 02/26/201202/24 Inactive amlodipine 5 mg Tab RxNorm: 645543 1 Tablet(s) PO QD 02/26/201204/25 Inactive Bactroban 2 % Ointment RxNorm: 009791 Application TOP QID to sores 02/23/2012 No Stop Date Active amlodipine 2.5 mg tablet RxNorm: 616169 1 Tablet(s) PO QHS 02/20/20 12 02/25/2012 Inactive doxycycline hyclate 100 mg Cap RxNorm: 0204329 1 Capsule(s) PO BID 02/20/2012 02/29/2012 Inactive hydrocodone-acetaminophen 10 mg-325 mg Tab RxNorm: 4327789 1-2 T ablet(s) PO QID 02/08/2012 No Stop Date Active alprazolam 0.5 mg Tab RxNorm: 986862 1 Tablet(s) PO BID 02/08/2012 Inactive prn Singulair 10 mg Tab RxNorm: 892396 1 Tablet(s) PO QD 02/08/201204/30 Inactive Soma 350 mg Tab RxNorm: 592166 1 Tablet(s) PO TID for spasm 012 03/07/2012 Inactive Soma 350 mg Tab RxNorm: 643193 1 Tablet(s) PO TID for spasm 012 02/05/2012 Inactive diclofenac sodium 75 mg tablet,delayed release RxNorm: 50343 8 1 Tablet(s) PO BID for pain 02/01/2012 03/18/2012 Inactive Celebrex 200 mg Cap RxNorm: 989971 1 Capsule(s) PO QD for joint radu n 01/30/2012 02/28/2012 Inactive Lasix 40 mg Tab RxNorm: 628235 1 Tablet(s) PO QAM 01/24/2012 03/18/20 12 Inactive potassium chloride ER 20 mEq tablet,extended release(part/cr yst) RxNorm: 714819 2 Tablet(s) PO BID 01/24/2012 02/22/2012 Inactive alprazolam 0.5 mg Tab RxNorm: 122023 1 Tablet(s) PO BID 01/11/2012 Inactive prn hydrocodone-acetaminophen 10 mg-325 mg Tab RxNorm: 0775788 1-2 T ablet(s) PO QID 01/11/2012 No Stop Date Active Ambien 10 mg Tab RxNorm: 368560 1 Tablet(s) PO QHS 01/11/2012 012 Inactive Klor-Con 8 mEq Tab RxNorm: 434718 1 Tablet(s) PO BID 01/11/201201/22 Inactive diclofenac sodium 75 mg Tab, Delayed Release RxNorm: 822392 1 Tablet(s) PO BID for pain 01/10/2012 01/31/2012 Inactive Ambien 10 mg Tab RxNorm: 076891 1 Tablet(s) PO QHS 12/11/2011 012 Inactive alprazolam 0.5 mg Tab RxNorm: 257290 1 Tablet(s) PO BID 12/11/2011 Inactive prn hydrocodone 10 mg-acetaminophen 325 mg tablet RxNorm: 950050 1-2 Tablet(s) PO TID 11/28/2011 No Stop Date Active as needed for pa in - Previous quantity #240, will start dosing for #180 in April 2011 per Doctor Td. Ambien 10 mg Tab RxNorm: 087299 1 Tablet(s) PO QHS 11/09/2011 012 Inactive alprazolam 0.5 mg Tab RxNorm: 554637 1 Tablet(s) PO BID 11/09/2011 Inactive prn hydrocodone-acetaminophen 10 mg-325 mg Tab RxNorm: 4203908 1-2 T ablet(s) PO TID 11/06/2011 No Stop Date Active as needed for pain - Previous quantity #240, will start dosing for #180 in April 2011 per Doctor Td. Singulair 10 mg Tab RxNorm: 367197 1 Tablet(s) PO QD 10/13/201110/12 Inactive Singulair 10 mg Tab RxNorm: 130299 1 Tablet(s) PO QD 10/13/201102/06 Inactive hydrocodone-acetaminophen 10 mg-325 mg Tab RxNorm: 2857777 1-2 T ablet(s) PO TID 10/10/2011 10/09/2011 Inactive as needed for pain - Previous quantity #240, will start dosing for #180 in April 2011 per Doctor Td. hydrocodone-acetaminophen 10 mg-325 mg Tab RxNorm: 4725138 1-2 T ablet(s) PO TID 10/09/2011 No Stop Date Active as needed for pain - Previous quantity #240, will start dosing for #180 in April 2011 per Doctor Td. Klor-Con 8 mEq Tab RxNorm: 307179 1 Tablet(s) PO BID 10/02/201101/09 Inactive triamterene 75 mg-hydrochlorothiazide 50 mg tablet RxNorm: 3 50904 1 Tablet(s) PO QD 09/14/2011 03/06/2013 Inactive Ambien 10 mg Tab RxNorm: 102934 1 Tablet(s) PO QHS 09/14/2011 012 Inactive hydrocodone-acetaminophen 10 mg-325 mg Tab RxNorm: 4824860 1-2 T ablet(s) PO TID 09/14/2011 No Stop Date Active as needed for pain - Previous quantity #240, will start dosing for #180 in April 2011 per Doctor Td. alprazolam 0.5 mg Tab RxNorm: 232966 1 Tablet(s) PO BID 09/14/2011 Inactive prn Zithromax 500 mg Tab RxNorm: 500612 1 Tablet(s) PO QD 09/13/201109/10 Inactive prednisone 20 mg Tab RxNorm: 613138 1 Tablet(s) PO BID 08/31/2011 Inactive Ambien 10 mg Tab RxNorm: 015083 1 Tablet(s) PO QHS 08/17/2011 011 Inactive hydrocodone-acetaminophen 10 mg-325 mg Tab RxNorm: 9571008 1-2 T ablet(s) PO TID 08/17/2011 No Stop Date Active as needed for pain - Previous quantity #240, will start dosing for #180 in April 2011 per Doctor Td. clonidine 0.2 mg Tab RxNorm: 392187 1 Tablet(s) PO TID 08/17/201112/2011 Inactive Ambien 10 mg Tab RxNorm: 480337 1 Tablet(s) PO QHS 08/17/2011 019 Inactive alprazolam 0.5 mg Tab RxNorm: 624576 1 Tablet(s) PO BID 08/17/2011 Inactive prn hydrocodone-acetaminophen 10 mg-325 mg Tab RxNorm: 1011005 1-2 T ablet(s) PO TID 08/17/2011 08/16/2011 Inactive as needed for pain - Previous quantity #240, will start dosing for #180 in April 2011 per Doctor Td. Singulair 10 mg Tab RxNorm: 043767 1 Tablet(s) PO QD 08/17/201108/16 Inactive Klor-Con 8 mEq Tab RxNorm: 993570 1 Tablet(s) PO QD 08/17/20112011 Inactive alprazolam 0.5 mg Tab RxNorm: 209761 1 Tablet(s) PO BID 07/20/2011 Inactive prn Ambien 10 mg Tab RxNorm: 897505 1 Tablet(s) PO QHS 07/20/2011 012 Inactive Singulair 10 mg Tab RxNorm: 635067 1 Tablet(s) PO QD 07/20/201107/19 Inactive Premarin 1.25 mg tablet RxNorm: 457212 2 Tablet(s) PO QD 07/20/2011 0 01/21/2019 Inactive Premarin 1.25 mg tablet RxNorm: 897163 1-2 Tablet(s) PO QD 07/20/20 11 12/16/2011 Inactive Premarin 1.25 mg Tab RxNorm: 798531 1-2 Tablet(s) PO QD 07/06/2011 Inactive alprazolam 0.5 mg Tab RxNorm: 690029 1 Tablet(s) PO BID 06/22/2011 Inactive prn alprazolam 0.5 mg Tab RxNorm: 834884 1 Tablet(s) PO BID 06/22/2011 Inactive prn Premarin 1.25 mg Tab RxNorm: 553979 1 Tablet(s) PO QD m ay do 90 day fill if desired 06/22/2011 07/05/2011 Inactive hydrocodone-acetaminophen 10 mg-325 mg Tab RxNorm: 1033465 1-2 T ablet(s) PO TID 06/22/2011 No Stop Date Active as needed for pain - Previous quantity #240, will start dosing for #180 in April 2011 per Doctor Td. clonidine 0.2 mg Tab RxNorm: 876084 1 Tablet(s) PO TID 05/25/201103/2011 Inactive triamterene-hydrochlorothiazide 75 mg-50 mg Tab RxNorm: 3108 18 1 Tablet(s) PO QD 05/25/2011 09/13/2011 Inactive alprazolam 0.5 mg Tab RxNorm: 692589 1 Tablet(s) PO BID 05/25/2011 Inactive prn hydrocodone-acetaminophen 10 mg-325 mg Tab RxNorm: 6059980 1-2 T ablet(s) PO TID 05/25/2011 No Stop Date Active as needed for pain - Previous quantity #240, will start dosing for #180 in April 2011 per Doctor Td. Robaxin-750 750 mg Tab RxNorm: 525316 2 Tablet(s) PO QHS 05/22/2011 1 Inactive prn spasm hydrocodone-acetaminophen 10 mg-325 mg Tab RxNorm: 8688025 1-2 T ablet(s) PO TID 04/26/2011 No Stop Date Active as needed for pain - Previous quantity #240, will start dosing for #180 in April 2011 per Doctor Td. alprazolam 0.5 mg Tab RxNorm: 228025 1 Tablet(s) PO BID 04/25/2011 Inactive prn Klor-Con 8 mEq Tab RxNorm: 861578 1 Tablet(s) PO QD 03/30/20112010 Inactive Klor-Con 8 mEq Tab RxNorm: 952960 1 Tablet(s) PO QD 03/29/20112010 Inactive hydrocodone-acetaminophen 10 mg-325 mg Tab RxNorm: 5914239 1-2 T ablet(s) PO TID 03/20/2011 04/25/2011 Inactive as needed for pain - Previous quantity #240, will start dosing for #180 in April 2011 per Doctor Td. alprazolam 0.5 mg Tab RxNorm: 898609 1 Tablet(s) PO BID prn 011 03/30/2011 Inactive Ambien 10 mg Tab RxNorm: 418779 1 Tablet(s) PO QHS 03/01/2011 011 Inactive cyclobenzaprine 10 mg Tab RxNorm: 775559 1 Tablet(s) PO TID 011 03/18/2012 Inactive cyclobenzaprine 10 mg Tab RxNorm: 150510 1 Tablet(s) PO TID 011 01/08/2011 Inactive cyclobenzaprine 10 mg Tab RxNorm: 494461 1 Tablet(s) PO TID 011 12/20/2010 Inactive terbinafine 250 mg Tab RxNorm: 454467 1 Tablet(s) PO QD 12/12/2010 Inactive triamterene-hydrochlorothiazide 75 mg-50 mg Tab RxNorm: 3108 18 1 Tablet(s) PO QD 12/07/2010 06/04/2011 Inactive Klor-Con 8 8 mEq Tab RxNorm: 471915 1 Tablet(s) PO QD 12/07/201001/08 Inactive Premarin 1.25 mg Tab RxNorm: 788982 2 Tablet(s) PO QD 12/07/201001/08 Inactive clonidine 0.2 mg Tab RxNorm: 333811 1 Tablet(s) PO TID 12/07/2010 Inactive hydrocodone-acetaminophen 7.5 mg-650 mg Tab RxNorm: 129048 1 Ta blet(s) PO Q4H 12/05/2010 01/21/2019 Inactive hydrocodone-acetaminophen 7.5 mg-650 mg Tab RxNorm: 708261 1 Ta blet(s) PO Q4H 10/26/2010 11/14/2010 Inactive hydrocodone-acetaminophen 7.5 mg-650 mg Tab RxNorm: 444179 1 Ta blet(s) PO Q4H 10/13/2010 10/25/2010 Inactive hydrocodone-acetaminophen 7.5 mg-650 mg Tab RxNorm: 704892 1 Ta blet(s) PO Q4H 09/15/2010 09/12/2010 Inactive alprazolam 0.5 mg Tab RxNorm: 613485 1 Tablet(s) PO BID prn 011 09/12/2010 Inactive terbinafine 250 mg Tab RxNorm: 481932 1 Tablet(s) PO QD 09/05/2010 Inactive hydrocodone-acetaminophen 7.5 mg-650 mg Tab RxNorm: 994852 1 Ta blet(s) PO Q4H 08/29/2010 09/17/2010 Inactive alprazolam 0.5 mg Tab RxNorm: 790860 1 Tablet(s) PO BID prn 010 09/27/2010 Inactive alprazolam 0.5 mg Tab RxNorm: 404071 1 Tablet(s) PO BID prn 010 09/06/2010 Inactive Klor-Con 8 mEq Tab RxNorm: 664806 1 Tablet(s) PO QD 08/08/20102010 Inactive hydrocodone-acetaminophen 7.5 mg-650 mg Tab RxNorm: 317792 1 Ta blet(s) PO Q4H 08/08/2010 08/27/2010 Inactive Ambien 10 mg Tab RxNorm: 466769 1 Tablet(s) PO QHS 08/08/2010 Inactive clonidine 0.2 mg Tab RxNorm: 184959 1 Tablet(s) PO TID 08/08/2010 Inactive Premarin 1.25 mg Tab RxNorm: 744025 2 Tablet(s) PO QD 08/08/201009/12 Inactive Ambien 10 mg Tab RxNorm: 015031 1 Tablet(s) PO QHS 07/18/2010 Inactive alprazolam 0.5 mg Tab RxNorm: 285290 1 Tablet(s) PO BID prn 010 08/07/2010 Inactive hydrocodone-acetaminophen 7.5 mg-650 mg Tab RxNorm: 778275 1 Ta blet(s) PO Q4H 07/12/2010 07/31/2010 Inactive clonidine 0.2 mg Tab RxNorm: 631021 1 Tablet(s) PO TID 06/20/2010 Inactive terbinafine 250 mg Tab RxNorm: 774192 1 Tablet(s) PO QD 05/24/2010 Inactive Clonidine 0.2 mg Tab RxNorm: 168844 1 Tablet(s) PO TID 05/24/201006/2010 Inactive Ambien 10 mg Tab RxNorm: 924590 1 Tablet(s) PO QHS 05/24/2010 010 Inactive alprazolam 0.5 mg Tab RxNorm: 394665 1 Tablet(s) PO BID 05/24/2010 Inactive Klor-Con 8 mEq Tab RxNorm: 813038 1 Tablet(s) PO QD 05/24/20102009 Inactive alprazolam 0.5 mg Tab RxNorm: 621382 2 Tablet(s) PO QD prn 05/24/2007/17/2010 Inactive triamterene-hydrochlorothiazide 75 mg-50 mg Tab RxNorm: 3108 18 1 Tablet(s) PO QD 05/24/2010 11/19/2010 Inactive Ambien 10 mg Tab RxNorm: 856086 1 Tablet(s) PO QHS 05/23/2010 010 Inactive Alprazolam 0.5 mg Tab RxNorm: 033410 2 Tablet(s) PO QD prn 05/23/2005/23/2010 Inactive Premarin 1.25 mg Tab RxNorm: 484094 2 Tablet(s) PO QD 05/19/201007/12 Inactive Hydrocodone-Acetaminophen 7.5 mg-650 mg Tab RxNorm: 844549 1 Ta blet(s) PO Q4H 05/19/2010 03/20/2011 Inactive Prednisone 20 mg Tab RxNorm: 560121 1 Tablet(s) PO BID 05/17/2010 Inactive Prednisone 20 mg Tab RxNorm: 192005 1 Tablet(s) PO BID 05/06/201001/2010 Inactive Premarin 1.25 mg Tab RxNorm: 018771 Tablet(s) PO 2 M-W-F, and 1 Zs-Jh-Ehd-Sun 05/05/2010 08/02/2010 Inactive Premarin 1.25 mg Tab RxNorm: 298271 Tablet(s) PO 2 M-W-F, and 1 Cn-Uv-Dkp-Sun 05/04/2010 05/04/2010 Inactive Premarin 1.25 mg Tab RxNorm: 560725 Tablet(s) PO 2 M-W-F, and 1 Pr-Ri-TstSun 05/04/2010 05/03/2010 Inactive Prednisone 20 mg Tab RxNorm: 386243 1 Tablet(s) PO BID 04/27/2010 Inactive Alprazolam 0.5 mg Tab RxNorm: 010959 2 Tablet(s) PO QD prn 04/26/20 10 05/22/2010 Inactive Clindamycin 300 mg Cap RxNorm: 523122 2 Capsule(s) PO TID 04/05/2010 04/18/2010 Inactive Terbinafine 250 mg Tab RxNorm: 076382 1 Tablet(s) PO QD 04/04/2010 Inactive Hydrocodone-Acetaminophen 7.5 mg-650 mg Tab RxNorm: 550636 1 Ta blet(s) PO Q4H 03/30/2010 04/18/2010 Inactive Avelox 400 mg Tab RxNorm: 062044 1 Tablet(s) PO QD 03/09/2010 010 Inactive Hydrocodone-Acetaminophen 7.5 mg-650 mg Tab RxNorm: 265494 1 Ta blet(s) PO Q4H 03/08/2010 03/27/2010 Inactive Alprazolam 0.5 mg Tab RxNorm: 623242 2 Tablet(s) PO QD prn 03/08/20 10 04/25/2010 Inactive Klor-Con 8 mEq Tab RxNorm: 689466 1 Tablet(s) PO QD when takes lasi x 03/07/2010 09/29/2019 Inactive Premarin 1.25 mg Tab RxNorm: 024515 1 Tablet(s) PO QD 03/03/201003/11 Inactive Alprazolam 0.5 mg Tab RxNorm: 263719 1 Tablet(s) PO BID PRN 010 No Stop Date Active triamterene-hydrochlorothiazide 75 mg-50 mg Tab RxNorm: 3108 18 1 Tablet(s) PO QD 02/09/2010 02/03/2011 Inactive Hydrocodone-Acetaminophen 10 mg-750 mg Tab RxNorm: 885413 1 Tablet(s) PO Q4H PRN 02/09/2010 03/20/2011 Inactive Clonidine 0.2 mg Tab RxNorm: 628340 1 Tablet(s) PO TID 01/13/201009/2009 Inactive Alprazolam 0.5 mg Tab RxNorm: 379210 1 Tablet(s) PO BID PRN 010 01/12/2010 Inactive Hydrocodone-Acetaminophen 10 mg-750 mg Tab RxNorm: 720403 1 Tablet(s) PO Q4H PRN 01/13/2010 01/12/2010 Inactive ANGELIQ 1 mg-0.5 mg Tab RxNorm: 2287382 1 Tablet(s) PO QD 12/27/2009 01/23/2010 Inactive Lasix 40 mg Tab RxNorm: 329308 1 Tablet(s) PO QAM 12/14/2009 06/11/20 10 Inactive Vitamin B12 1000mcg Tablet RxNorm: 1 Tablet(s) PO QD No Start Date Active cyclobenzaprine 10 mg tablet RxNorm: 233222 1 Tablet(s) PO TID as needed DO NOT USE WITH BACLOFEN No Start Date Active Vitamin D 5,000 unit Tab RxNorm: 1 Tablet(s) PO QD No Start Date Active vitamin E (dl, acetate) 400 unit Cap RxNorm: 601555 1 Capsule(s ) PO QD No Start Date Active Benadryl 25 mg Cap RxNorm: 5083760 Capsule(s) PO PRN No Start Date Inactive amitriptyline 100 mg tablet RxNorm: 221964 1 Tablet(s) PO QHS No St art Date 11/27/2016 Inactive Zithromax Z-Dustin 250 mg tablet RxNorm: 223728 Tablet(s) PO as di rected No Start Date 07/22/2013 Inactive Klor-Con 8 mEq tablet,extended release RxNorm: 670249 1 Tablet( s) PO BID No Start Date 07/28/2012 Inactive scopolamine 1.5 mg 72 hr Transderm Patch RxNorm: 520180 Application TD Q72H for motion sickness No Start Date 05/25/2013 Inactive Klonopin 1 mg tablet RxNorm: 788572 1-2 Tablet(s) PO QHS as nee ded for sleep No Start Date 06/20/2015 Inactive Klor-Con M20 mEq tablet,extended release RxNorm: 284349 2 Tablet(s) PO BID to use with lasix No Start Date 11/11/2013 Inactive Bystolic 5 mg tablet RxNorm: 495927 1 Tablet(s) PO QD No Start Date 1 Inactive Bystolic 10 mg tablet RxNorm: 999558 1 Tablet(s) PO BID No Start Da te 07/06/2015 Inactive Premarin 1.25 mg Tab RxNorm: 614237 Tablet(s) PO 2 --, and 1 [id number] No Start Date 05/03/2010 Inactive baclofen 20 mg tablet RxNorm: 775519 1 Tablet(s) PO TID as needed for muscle spasm No Start Date 07/22/2015 Inactive hydrocodone-acetaminophen 7.5 mg-650 mg Tab RxNorm: 685829 1 Tablet(s) PO Q4H as needed for pain No Start Date 03/20/2011 Inactive albuterol sulfate 1.25 mg/3 mL Neb Solution RxNorm: 014043 1 Unit Dose INH Q4H 2boxes No Start Date 09/06/2015 Inactive Butrans 20 mcg/hour Transderm Patch RxNorm: 758255 1 TD WEEKLY apply to skin weekly after removing previous. No Start Date 07/22/2013 Inactive Medrol (Dustin) 4 mg tablets in a dose pack RxNorm: 182052 Tablet(s) PO As Directed No Start Date 07/30/2016 Inactive hydrocodone-acetaminophen 10 mg-325 mg Tab RxNorm: 5395899 1-2 Tablet(s) PO TID as needed for pain No Start Date 03/19/2011 Inactive Klonopin 1 mg tablet RxNorm: 754272 1 Tablet(s) PO QHS No Start Date 02/28/2016 Inactive honey topical RxNorm: topical No Start Date 06/16/2018 Inactive Clonidine 0.2 mg Tab RxNorm: 796484 1 Tablet(s) PO TID No Start Date 01/12/2010 Inactive ketorolac 10 mg tablet RxNorm: 180056 1 Tablet(s) PO Q8H No Start D ate 03/18/2012 Inactive as needed for headache Singulair 10 mg Tab RxNorm: 035881 1 Tablet(s) PO QD No Start Date Inactive Premarin 1.25 mg Tab RxNorm: 027661 1 Tablet(s) PO QD No Start Date 1 Inactive Flonase 50 mcg/Actuation Nasal [place] RxNorm: 7816086 1 [place] CECEL[place] AL BID No Start Date 03/18/2012 Inactive Terbinafine 250 mg Tab RxNorm: 913482 1 Tablet(s) PO QD No Start Da te 04/03/2010 Inactive Fexofenadine 180 mg Tab RxNorm: 0384401 1 Tablet(s) PO QD No Start Date 09/06/2015 Inactive baclofen 20 mg tablet RxNorm: 153297 1 Tablet(s) PO TID as needed N o Start Date 05/25/2014 Inactive Diovan 160 mg Tab RxNorm: 171912 1 Tablet(s) PO QD No Start Date 09/12 Inactive mupirocin 2 % topical ointment RxNorm: 074130 1 Application TOP QID No Start Date 04/25/2016 Inactive ZOFRAN ODT 4 mg Tab, Rapid Dissolve RxNorm: 914561 1 Tablet(s) PO Q4H No Start Date 03/18/2012 Inactive as needed for nausea and vomiting Alprazolam 0.5 mg Tab RxNorm: 882745 1 Tablet(s) PO BID PRN No Star t Date 01/12/2010 Inactive cyclobenzaprine 10 mg tablet RxNorm: 867104 1 Tablet(s) PO TID as needed for muscle spasm No Start Date 10/08/2017 Inactive Albuterol 0.083% Aerosol Solution RxNorm: 1 Appl ication INH Q4H Use one ampule every 4 hrs with nebulizer as needed for shortness of breath. No Start Date 10/09/2010 Inactive lorazepam 1 mg tablet RxNorm: 105281 1 1/2 Tablet(s) PO QHS No Star t Date 02/02/2016 Inactive Melatonin 3 mg Tab RxNorm: 751544 Tablet(s) PO PRN No Start Date 07/11 Inactive Medrol (Dustin) 4 mg Tabs in a Dose Pack RxNorm: 765867 Tablet(s) PO N o Start Date 11/28/2010 Inactive lorazepam 1 mg tablet RxNorm: 531359 1 Tablet(s) PO QHS as need ed for sleep No Start Date 01/30/2016 Inactive hydrocodone-acetaminophen 10 mg-325 mg Tab RxNorm: 8618959 1-2 Tablet(s) PO QID as needed for severe pain No Start Date 03/24/2012 Inactive celecoxib 200 mg capsule RxNorm: 496630 1 Capsule(s) PO BID No Star t Date 06/26/2019 Inactive amlodipine 5 mg-benazepril 20 mg capsule RxNorm: 962353 1 Capsu le(s) PO QD No Start Date 04/10/2017 Inactive Bystolic 20 mg tablet RxNorm: 859684 1/2 Tablet(s) PO QAM No Start Date 01/23/2016 Inactive Bystolic 20 mg tablet RxNorm: 151828 1 Tablet(s) PO QAM No Start Da te 04/25/2016 Inactive Ambien 10 mg Tab RxNorm: 097951 1 Tablet(s) PO QHS No Start Date 05/11 Inactive Klor-Con 8 mEq Tab RxNorm: 694553 1 Tablet(s) PO QD when takes lasix No Start Date 03/06/2010 Inactive aspirin 81 mg tablet RxNorm: 516814 1 Tablet(s) PO QD No Start Date 0 01/29/2018 Inactive hydrocodone-acetaminophen 10 mg-325 mg Tab RxNorm: 5836649 1-2 T ablet(s) PO QID No Start Date 01/10/2012 Inactive Bystolic 10 mg tablet RxNorm: 454209 1 Tablet(s) PO QAM take one daily in the morning. No Start Date 05/28/2013 Inactive nystatin 100,000 unit/mL Oral Susp RxNorm: 397862 5 Milliliter( s) PO QID No Start Date 03/18/2012 Inactive swish and spit scopolamine 1.5 mg 72 hr Transderm Patch RxNorm: 309127 1 Unit Dose TD Q72H for motion sickness No Start Date 12/23/2013 Inactive Hydrocodone-Acetaminophen 10 mg-750 mg Tab RxNorm: 467123 1 Tablet(s) PO Q4H PRN No Start Date 01/12/2010 Inactive Soma 350 mg tablet RxNorm: 023459 1 Tablet(s) PO TID as needed for spasm No Start Date 01/12/2013 Inactive baclofen 10 mg tablet RxNorm: 658039 1 Tablet(s) PO TID as needed for muscle spasm No Start Date 09/18/2019 Inactive Soma 350 mg Tab RxNorm: 578941 1 Tablet(s) PO TID for spasm No Star t Date 01/31/2012 Inactive Co Q-10 400 mg capsule RxNorm: 081499 1 Capsule(s) PO QD No Start D ate 01/21/2019 Inactive nystatin 100,000 unit/gram topical cream RxNorm: 461731 Applica tion TOP BID No Start Date 03/22/2015 Inactive Exforge 5 mg-160 mg Tab RxNorm: 421026 1 Tablet(s) PO QD No Start D ate 10/09/2010 Inactive Hydrocodone-Acetaminophen 7.5 mg-650 mg Tab RxNorm: 301684 1 Ta blet(s) PO Q4H No Start Date 03/07/2010 Inactive Robaxin-750 750 mg Tab RxNorm: 258195 1-2 Tablet(s) PO TID prn spasm No Start Date 05/21/2011 Inactive amlodipine 5 mg tablet RxNorm: 179488 1 Tablet(s) PO QHS No Start D ate 09/29/2015 Inactive oxycodone-acetaminophen 10 mg-325 mg tablet RxNorm: 7728655 1-2 Tablet(s) PO Q6H No Start Date 06/16/2018 Inactive Triamterene-Hydrochlorothiazide 75 mg-50 mg Tab RxNorm: 3108 18 1 Tablet(s) PO QD No Start Date 02/08/2010 Inactive Alprazolam 0.5 mg Tab RxNorm: 826348 2 Tablet(s) PO QD prn No Start Date 03/07/2010 Inactive Bystolic 20 mg tablet RxNorm: 036410 1 Tablet(s) PO QAM No Start Da te 08/17/2015 Inactive ketorolac 10 mg tablet RxNorm: 429011 1 Tablet(s) PO QID prn he adache No Start Date 07/17/2012 Inactive acyclovir 800 mg Tab RxNorm: 898929 1 Tablet(s) PO BID No Start Date 03/18/2012 Inactive duloxetine 60 mg capsule,delayed release RxNorm: 782506 1 Capsu le(s) PO QD No Start Date 09/29/2015 Inactive Norvasc 5 mg tablet RxNorm: 428911 1 Tablet(s) PO QHS No Start Date 1 10/18/2014 Inactive promethazine 25 mg tablet RxNorm: 405694 1 Tablet(s) PO Q8H use sparingly No Start Date 07/22/2013 Inactive alprazolam 0.5 mg tablet RxNorm: 601044 3 Tablet(s) PO QHS No Start Date 06/06/2015 Inactive Lunesta 3 mg tablet RxNorm: 946077 1 Tablet(s) PO QHS No Start Date 0 09/20/2017 Inactive hydrocodone-acetaminophen 10 mg-325 mg Tab RxNorm: 9770432 1-2 Tablet(s) PO TID as needed for pain No Start Date 12/10/2011 Inactive Coricidin HBP Cough & Cold 4 mg-30 mg Tab RxNorm: 1149393 Tablet (s) PO PRN No Start Date 10/09/2010 Inactive Bactroban 2 % Ointment RxNorm: 733575 Application TOP QID to so res No Start Date 02/22/2012 Inactive Flonase 50 mcg/actuation Nasal [place] RxNorm: 358241 2 [place] C[place] AL QHS No Start Date 03/03/2014 Inactive Medication Administered No Medication Administered data Immunizations Vaccine Codes Date Status Tetanus, Diptheria, Pertussis CVX: 115 02/27/2014 Results Observation Observation Code Item Item Code Result Date S vice Location COMPREHENSIVE METABOLIC 15124 AST 15 U/L 2019 Unknown COMPREHENSIVE METABOLIC 23865 ALT 13 U/L 2019 Unknown COMPREHENSIVE METABOLIC 45517 BUN 12 mg/dL 2019 Unknown COMPREHENSIVE METABOLIC 07938 ALBUMIN 3.9 g/dL 2019 Unknown COMPREHENSIVE METABOLIC 34197 CHLORIDE 97 mmol/L 2019 Unknown COMPREHENSIVE METABOLIC 50281 Bili Total 0.4 mg/dL 09/29 Unknown COMPREHENSIVE METABOLIC 07289 ALK PHOS 130 U/L 2019 Unknown COMPREHENSIVE METABOLIC 78137 SODIUM 136 mmol/L 09/29 Unknown COMPREHENSIVE METABOLIC 17126 CREATININE 0.92 mg/dL 09/11 Unknown COMPREHENSIVE METABOLIC 27514 CALCIUM 9.1 mg/dL 2019 Unknown COMPREHENSIVE METABOLIC 63916 POTASSIUM 4.4 mmol/L 09/29 Unknown COMPREHENSIVE METABOLIC 93041 Total Protein 6.2 g/dL Unknown COMPREHENSIVE METABOLIC 27963 Glucose 391 mg/dL 2019 Unknown COMPREHENSIVE METABOLIC 92093 Bicarbonate 30 mmol/L 09/11 Unknown COMPREHENSIVE METABOLIC 86345 AGAP 9 mmol/L 2019 Unknown MEAN GLUC 3270540 Calc Mean Gluc 332 mg/dL 09/29/2019 Unkn own COMPLETE BLOOD COUNT [id number] WBC 7.0 10e9/L 09/29/19 Unknown COMPLETE BLOOD COUNT [id number] RBC 4.69 10e12/L 2019 Unknown COMPLETE BLOOD COUNT [id number] HEMOGLOBIN 14.6 g/dL 09/29/19 Unknown COMPLETE BLOOD COUNT [id number] HEMATOCRIT 45.2 % 09/29/19 Unknown COMPLETE BLOOD COUNT [id number] MCV 96.4 fL 0 Unknown COMPLETE BLOOD COUNT 1395190 MCH 31.1 pg 0 Unknown COMPLETE BLOOD COUNT 9906164 MCHC 32.3 g/dL 0 Unknown COMPLETE BLOOD COUNT 7346224 PLATELET COUNT 209 10e9/L Unknown COMPLETE BLOOD COUNT [id number] Mean Plt Volume 9.8 fL Unknown COMPLETE BLOOD COUNT 4974482 Neut Auto 48.1 % 0 Unknown COMPLETE BLOOD COUNT 1971003 Lymph Auto 36.5 % 09/29/19 Unknown COMPLETE BLOOD COUNT 5044907 Wise Auto 8.6 % 0 Unknown COMPLETE BLOOD COUNT 7207303 Eos Auto 6.5 % 0 Unknown COMPLETE BLOOD COUNT 0101350 RDW 13.4 % 0 Unknown COMPLETE BLOOD COUNT 7374708 Baso Auto 0.3 % 0 Unknown COMPLETE BLOOD COUNT [id number] Neutrophil Abs 3.37 10e9/L Unknown COMPLETE BLOOD COUNT [id number] Lymphocyte Abs 2.56 10e9/L Unknown COMPLETE BLOOD COUNT [id number] Monocyte Abs 0.60 10e9/L 09/11 Unknown COMPLETE BLOOD COUNT [id number] Eosinophil Abs 0.46 10e9/L Unknown COMPLETE BLOOD COUNT [id number] Basophil Abs 0.02 10e9/L 09/11 Unknown COMPLETE BLOOD COUNT 9300493 RDW-SD 45.9 fL 0 Unknown LIPID GROUP 63819 Cholesterol 248 mg/dL 09/29/2019 Unkno wn LIPID GROUP 01111 Triglyceride 898 mg/dL 09/29/2019 Unkn own LIPID GROUP 01169 HDL CHOLESTEROL 41 mg/dL 09/29/2019 U nknown LIPID GROUP 67510 Chol/HDL Ratio 6.05 ratio 09/29/2019 U nknown LIPID GROUP 97413 NON-HDL Chol 207 mg/dL 09/29/2019 Unkn own LIPID GROUP 14051 LDL Cholesterol N/A Trig >400 020 Unknown GLYCOSYLATED HEMOGLOBIN TEST 77360 Hgb A1c 91666-6 13.2 % 0 09/29/2019 Unknown FREE T4 56043 T4 Free 0.75 ng/dL 09/29/2019 Unknown GFR CALC 5526453 GFR Non Afr Amr >60 mL/min 09/29/2019 Un known GFR CALC 8388267 GFR Afr Amr >60 mL/min 09/29/2019 Unknow n THYROID STIMULATING HORMONE 92770 TSH 4.245 uIU/mL 09/29/2019 Unknown COMPLETE BLOOD COUNT 1494671 WBC 10.7 10e9/L 018 Unknown COMPLETE BLOOD COUNT 0324451 RBC 4.59 10e12/L 2017 Unknown COMPLETE BLOOD COUNT 4240726 HEMOGLOBIN 14.8 g/dL 12/11/19 18 Unknown COMPLETE BLOOD COUNT [id number] HEMATOCRIT 44.9 % 12/11/19 18 Unknown COMPLETE BLOOD COUNT 4245664 MCV 97.8 fL 8 Unknown COMPLETE BLOOD COUNT 4542453 MCH 32.2 pg 8 Unknown COMPLETE BLOOD COUNT 4121082 MCHC 33.0 g/dL 8 Unknown COMPLETE BLOOD COUNT 1872594 PLATELET COUNT 261 10e9/L 10/2017 Unknown COMPLETE BLOOD COUNT 8553565 Mean Plt Volume 9.5 fL 10/2017 Unknown COMPLETE BLOOD COUNT 8816921 Neut Auto 59.9 % 8 Unknown COMPLETE BLOOD COUNT 9735106 Lymph Auto 27.4 % 12/11/19 18 Unknown COMPLETE BLOOD COUNT 0936214 Wise Auto 8.2 % 8 Unknown COMPLETE BLOOD COUNT 6194162 RDW 13.3 % 8 Unknown COMPLETE BLOOD COUNT 4414746 Eos Auto 4.1 % 8 Unknown COMPLETE BLOOD COUNT 5710048 Baso Auto 0.4 % 8 Unknown COMPLETE BLOOD COUNT 9556355 Neutrophil Abs 6.41 10e9/L Unknown COMPLETE BLOOD COUNT 6503502 Lymphocyte Abs 2.93 10e9/L Unknown COMPLETE BLOOD COUNT [id number] Monocyte Abs 0.88 10e9/L 10/2017 Unknown COMPLETE BLOOD COUNT [id number] Eosinophil Abs 0.44 10e9/L Unknown COMPLETE BLOOD COUNT [id number] Basophil Abs 0.04 10e9/L 10/2017 Unknown COMPLETE BLOOD COUNT 0843755 RDW-SD 46.2 fL 8 Unknown THYROID STIMULATING HORMONE 78790 TSH 4.015 uIU/mL 12/10/2017 Unknown COMPREHENSIVE METABOLIC 32359 AST 25 U/L 2017 Unknown COMPREHENSIVE METABOLIC 49795 ALT 17 U/L 2017 Unknown COMPREHENSIVE METABOLIC 54428 BUN 19 mg/dL 2017 Unknown COMPREHENSIVE METABOLIC 83969 ALBUMIN 4.0 g/dL 2017 Unknown COMPREHENSIVE METABOLIC 54357 CHLORIDE 91 mmol/L 2017 Unknown COMPREHENSIVE METABOLIC 95592 Bili Total 0.5 mg/dL 12/10 Unknown COMPREHENSIVE METABOLIC 44075 ALK PHOS 75 U/L 2017 Unknown COMPREHENSIVE METABOLIC 18520 SODIUM 136 mmol/L 12/10 Unknown COMPREHENSIVE METABOLIC 97187 CREATININE 1.05 mg/dL 10/2017 Unknown COMPREHENSIVE METABOLIC 31630 CALCIUM 8.9 mg/dL 2017 Unknown COMPREHENSIVE METABOLIC 24688 POTASSIUM 3.4 mmol/L 12/10 Unknown COMPREHENSIVE METABOLIC 34170 Total Protein 6.5 g/dL Unknown COMPREHENSIVE METABOLIC 49643 Glucose 138 mg/dL 2017 Unknown COMPREHENSIVE METABOLIC 39591 Bicarbonate 35 mmol/L 10/2017 Unknown COMPREHENSIVE METABOLIC 57042 AGAP 10 mmol/L 2017 Unknown MEAN GLUC 7043619 Calc Mean Gluc 171 mg/dL 12/10/2017 Unkn own LIPID GROUP 45295 Cholesterol 204 mg/dL 12/10/2017 Unkno wn LIPID GROUP 10798 Triglyceride 411 mg/dL 12/10/2017 Unkn own LIPID GROUP 33654 HDL CHOLESTEROL 50 mg/dL 12/10/2017 U nknown LIPID GROUP 74232 Chol/HDL Ratio 4.08 ratio 12/10/2017 U nknown LIPID GROUP 60774 NON-HDL Chol 154 mg/dL 12/10/2017 Unkn own LIPID GROUP 19525 LDL Cholesterol N/A Trig >400 018 Unknown GLYCOSYLATED HEMOGLOBIN TEST 29748 Hgb A1c 71397-5 7.6 % 0 12/10/2017 Unknown FREE T4 13512 T4 Free 1.40 ng/dL 12/10/2017 Unknown GFR CALC 4790375 GFR Non Afr Amr 55 mL/min 12/10/2017 Unk nown GFR CALC 9730435 GFR Afr Amr >60 mL/min 12/10/2017 Unknow n GFR CALC 1465496 GFR Non Afr Amr 48 mL/min 06/28/2017 Unk nown GFR CALC 0422923 GFR Afr Amr 59 mL/min 06/28/2017 Unknown COMPREHENSIVE METABOLIC 36235 AST 32 U/L 2016 Unknown COMPREHENSIVE METABOLIC 09548 ALT 22 U/L 2016 Unknown COMPREHENSIVE METABOLIC 76358 BUN 23 mg/dL 2016 Unknown COMPREHENSIVE METABOLIC 12114 ALBUMIN 4.7 g/dL 2016 Unknown COMPREHENSIVE METABOLIC 84630 CHLORIDE 89 mmol/L 2016 Unknown COMPREHENSIVE METABOLIC 82994 Bili Total 0.5 mg/dL 06/28 Unknown COMPREHENSIVE METABOLIC 10494 ALK PHOS 90 U/L 2016 Unknown COMPREHENSIVE METABOLIC 74828 SODIUM 135 mmol/L 06/28 Unknown COMPREHENSIVE METABOLIC 86981 CREATININE 1.18 mg/dL 06/10 Unknown COMPREHENSIVE METABOLIC 52256 CALCIUM 9.7 mg/dL 2016 Unknown COMPREHENSIVE METABOLIC 41982 POTASSIUM 3.5 mmol/L 06/28 Unknown COMPREHENSIVE METABOLIC 84979 Total Protein 7.7 g/dL Unknown COMPREHENSIVE METABOLIC 04236 Glucose 129 mg/dL 2016 Unknown COMPREHENSIVE METABOLIC 05904 Bicarbonate 34 mmol/L 06/10 Unknown COMPREHENSIVE METABOLIC 50418 AGAP 12 mmol/L 2016 Unknown LIPID GROUP 42534 HDL TEST 64 MG/DL 08/27/2014 Unknown LIPID GROUP 39832 TRIG 222 MG/DL 08/27/2014 Unknown LIPID GROUP 60568 TEST LDL 209 MG/DL 08/27/2014 Unknown LIPID GROUP 69307 CHOL 317 MG/DL 08/27/2014 Unknown LIPID GROUP 57012 RCHOL/HDL 4.95 RATIO 08/27/2014 Unknow n LIPID GROUP 59864 NON-HDL CH 253 MG/DL 08/27/2014 Unknow n GFR CALC 0876468 GFR AA >60 ML/MIN 08/27/2014 Unknown GFR CALC 4314508 GFR NON-AA >60 ML/MIN 08/27/2014 Unknown COMPLETE BLOOD COUNT 4337412 WBC 7.0 10e9/L 08/27/20 14 Unknown COMPLETE BLOOD COUNT 8515357 RBC 4.98 10e12/L 2013 Unknown COMPLETE BLOOD COUNT 6529694 HGB 15.6 g/dL 4 Unknown COMPLETE BLOOD COUNT 8620770 HCT DET 46.5 % 4 Unknown COMPLETE BLOOD COUNT 9720011 MCV 93.4 fL 4 Unknown COMPLETE BLOOD COUNT 1729273 MCH 31.3 pg 4 Unknown COMPLETE BLOOD COUNT 3499041 MCHC 33.5 g/dL 4 Unknown COMPLETE BLOOD COUNT 3497337 PLT 309 10e9/L 08/27/20 14 Unknown COMPLETE BLOOD COUNT 3072259 MPV 9.6 fL 4 Unknown COMPLETE BLOOD COUNT 6046314 CADEN % 57.2 % 4 Unknown COMPLETE BLOOD COUNT 8441388 LY % 33.2 % 4 Unknown COMPLETE BLOOD COUNT 9073861 MON % 7.3 % 4 Unknown COMPLETE BLOOD COUNT 6707828 EOS % 2.0 % 4 Unknown COMPLETE BLOOD COUNT 3698271 BASO % 0.3 % 4 Unknown COMPLETE BLOOD COUNT 9702542 RDW 13.7 % 4 Unknown COMPLETE BLOOD COUNT [id number] ABS CADEN 4.00 10e9/L 014 Unknown COMPLETE BLOOD COUNT 2456191 ABS LYMPH 2.32 10e9/L 014 Unknown COMPLETE BLOOD COUNT 2105335 ABS MONO 0.51 10e9/L 014 Unknown COMPLETE BLOOD COUNT 6898610 ABS EOS 0.14 10e9/L 014 Unknown COMPLETE BLOOD COUNT [id number] ABS BASO 0.02 10e9/L 014 Unknown COMPLETE BLOOD COUNT 8762545 RDW-SD 45.1 fL 4 Unknown COMPREHENSIVE METABOLIC 52662 AST 13 U/L 2013 Unknown COMPREHENSIVE METABOLIC 70773 ALT 11 IU/L 2013 Unknown COMPREHENSIVE METABOLIC 10399 BUN 23 MG/DL 2013 Unknown COMPREHENSIVE METABOLIC 24915 ALBUMIN 4.4 GM/DL 2013 Unknown COMPREHENSIVE METABOLIC 09408 CHLORIDE 99 MMOL/L 2013 Unknown COMPREHENSIVE METABOLIC 06554 BILI TOT 0.5 MG/DL 2013 Unknown COMPREHENSIVE METABOLIC 23249 ALK PHOS 56 U/L 2013 Unknown COMPREHENSIVE METABOLIC 68073 SODIUM 138 MMOL/L 08/27 Unknown COMPREHENSIVE METABOLIC 09016 CREATININE 0.95 MG/DL 08/10 Unknown COMPREHENSIVE METABOLIC 06855 CALCIUM 9.8 MG/DL 2013 Unknown COMPREHENSIVE METABOLIC 89016 POTASSIUM 3.5 MMOL/L 08/27 Unknown COMPREHENSIVE METABOLIC 79126 PROT TOT 6.8 GM/DL 2013 Unknown COMPREHENSIVE METABOLIC 43499 Glucose 90 MG/DL 2013 Unknown COMPREHENSIVE METABOLIC 54170 BICARB 34 MMOL/L 2013 Unknown COMPREHENSIVE METABOLIC 54560 ANION GAP 5 MEQ/L 2013 Unknown LIPASE 49047 LIPASE 11 IU/L 07/21/2014 Unknown AMYLASE 62262 AMYLASE 39 IU/L 07/21/2014 Unknown HEMOGLOBIN A1C (GLYCOSYLATED) 2161290 A1C HPLC 89872-8 6.2 % 03/05/2013 Unknown THYROID STIMULATING HORMONE 79868 TSH 6.986 uIU/ML 03/05/2013 Unknown COMPLETE BLOOD COUNT 9672011 WBC 12.7 10e9/L 013 Unknown COMPLETE BLOOD COUNT 7642343 RBC 4.53 10e12/L 2012 Unknown COMPLETE BLOOD COUNT 4343782 HGB 14.7 g/dL 3 Unknown COMPLETE BLOOD COUNT 2985233 HCT DET 43.1 % 3 Unknown COMPLETE BLOOD COUNT 8551675 MCV 95.1 fL 3 Unknown COMPLETE BLOOD COUNT 5918279 MCH 32.5 pg 3 Unknown COMPLETE BLOOD COUNT 0595161 MCHC 34.1 g/dL 3 Unknown COMPLETE BLOOD COUNT 1086307 PLT 346 10e9/L 03/05/20 13 Unknown COMPLETE BLOOD COUNT 8898595 MPV 9.5 fL 3 Unknown COMPLETE BLOOD COUNT 6506785 CADEN % 67.6 % 3 Unknown COMPLETE BLOOD COUNT 3724999 LY % 22.1 % 3 Unknown COMPLETE BLOOD COUNT 8578217 MON % 6.6 % 3 Unknown COMPLETE BLOOD COUNT 9918172 EOS % 3.3 % 3 Unknown COMPLETE BLOOD COUNT 0348231 BASO % 0.4 % 3 Unknown COMPLETE BLOOD COUNT 9292392 RDW 14.0 % 3 Unknown COMPLETE BLOOD COUNT 2536712 ABS CADEN 8.59 10e9/L 013 Unknown COMPLETE BLOOD COUNT 1143471 ABS LYMPH 2.81 10e9/L 013 Unknown COMPLETE BLOOD COUNT 7965033 ABS MONO 0.84 10e9/L 013 Unknown COMPLETE BLOOD COUNT [id number] ABS EOS 0.42 10e9/L 013 Unknown COMPLETE BLOOD COUNT 6484232 ABS BASO 0.05 10e9/L 013 Unknown COMPLETE BLOOD COUNT 6437331 RDW-SD 46.0 fL 3 Unknown FREE T4 79942 FREE T4 1.14 NG/DL 03/05/2013 Unknown COMPREHENSIVE METABOLIC 50790 AST 17 U/L 2012 Unknown COMPREHENSIVE METABOLIC 24657 ALT 12 IU/L 2012 Unknown COMPREHENSIVE METABOLIC 93419 BUN 24 MG/DL 2012 Unknown COMPREHENSIVE METABOLIC 65767 ALBUMIN 4.2 GM/DL 2012 Unknown COMPREHENSIVE METABOLIC 70840 CHLORIDE 93 MMOL/L 2012 Unknown COMPREHENSIVE METABOLIC 23058 BILI TOT 0.5 MG/DL 2012 Unknown COMPREHENSIVE METABOLIC 38957 ALK PHOS 75 U/L 2012 Unknown COMPREHENSIVE METABOLIC 37185 SODIUM 141 MMOL/L 03/05 Unknown COMPREHENSIVE METABOLIC 17441 CREATININE 1.36 MG/DL 02/09 Unknown COMPREHENSIVE METABOLIC 80859 CALCIUM 9.2 MG/DL 2012 Unknown COMPREHENSIVE METABOLIC 89716 POTASSIUM 3.1 MMOL/L 03/05 Unknown COMPREHENSIVE METABOLIC 68343 PROT TOT 6.9 GM/DL 2012 Unknown COMPREHENSIVE METABOLIC 23505 Glucose 123 MG/DL 2012 Unknown COMPREHENSIVE METABOLIC 10837 BICARB 36 MMOL/L 2012 Unknown COMPREHENSIVE METABOLIC 86540 ANION GAP 12 MEQ/L 2012 Unknown GFR CALC 9637954 GFR AA 51.0L ML/MIN 03/05/2013 Unknow n GFR CALC 8447696 GFR NON-AA 42.0L ML/MIN 03/05/2013 Unkno wn COMPREHENSIVE METABOLIC 25939 AST 14 U/L 2012 Unknown COMPREHENSIVE METABOLIC 47979 ALT 11 IU/L 2012 Unknown COMPREHENSIVE METABOLIC 92436 BUN 16 MG/DL 2012 Unknown COMPREHENSIVE METABOLIC 40398 ALBUMIN 4.2 GM/DL 2012 Unknown COMPREHENSIVE METABOLIC 85712 CHLORIDE 98 MMOL/L 2012 Unknown COMPREHENSIVE METABOLIC 54381 BILI TOT 0.4 MG/DL 2012 Unknown COMPREHENSIVE METABOLIC 64914 ALK PHOS 77 U/L 2012 Unknown COMPREHENSIVE METABOLIC 11813 SODIUM 139 MMOL/L 09/25 Unknown COMPREHENSIVE METABOLIC 19597 CREATININE 0.86 MG/DL 09/10 Unknown COMPREHENSIVE METABOLIC 10634 CALCIUM 9.5 MG/DL 2012 Unknown COMPREHENSIVE METABOLIC 70061 POTASSIUM 3.8 MMOL/L 09/25 Unknown COMPREHENSIVE METABOLIC 13215 PROT TOT 6.8 GM/DL 2012 Unknown COMPREHENSIVE METABOLIC 23097 Glucose 91 MG/DL 2012 Unknown COMPREHENSIVE METABOLIC 86381 BICARB 32 MMOL/L 2012 Unknown COMPREHENSIVE METABOLIC 08353 ANION GAP 9 MEQ/L 2012 Unknown FREE T4 01020 FREE T4 0.98 NG/DL 09/25/2012 Unknown THYROID STIMULATING HORMONE 28023 TSH 1.736 uIU/ML 09/25/2012 Unknown C-REACTIVE PROTEIN (CRP) QUANT 53085 CRP 2.3 MG/DL 09/25/2012 Unknown COMPLETE BLOOD COUNT [id number] WBC 11.9 10e9/L 013 Unknown COMPLETE BLOOD COUNT [id number] RBC 4.87 10e12/L 2012 Unknown COMPLETE BLOOD COUNT 3205156 HGB 15.1 g/dL 3 Unknown COMPLETE BLOOD COUNT 2480838 HCT DET 44.8 % 3 Unknown COMPLETE BLOOD COUNT 2241345 MCV 92.0 fL 3 Unknown COMPLETE BLOOD COUNT 6317115 MCH 31.0 pg 3 Unknown COMPLETE BLOOD COUNT 0233918 MCHC 33.7 g/dL 3 Unknown COMPLETE BLOOD COUNT 5863138 PLT 343 10e9/L 09/25/19 13 Unknown COMPLETE BLOOD COUNT 6456099 MPV 9.0 fL 3 Unknown COMPLETE BLOOD COUNT 3805372 CADEN % 68.2 % 3 Unknown COMPLETE BLOOD COUNT 9237041 LY % 22.4 % 3 Unknown COMPLETE BLOOD COUNT 8576234 MON % 6.4 % 3 Unknown COMPLETE BLOOD COUNT 5573924 EOS % 2.7 % 3 Unknown COMPLETE BLOOD COUNT 2528326 BASO % 0.3 % 3 Unknown COMPLETE BLOOD COUNT 2753798 RDW 13.8 % 3 Unknown COMPLETE BLOOD COUNT 2170458 ABS CADEN 8.12 10e9/L 013 Unknown COMPLETE BLOOD COUNT 3125724 ABS LYMPH 2.67 10e9/L 013 Unknown COMPLETE BLOOD COUNT 2850428 ABS MONO 0.76 10e9/L 013 Unknown COMPLETE BLOOD COUNT 5810351 ABS EOS 0.32 10e9/L 013 Unknown COMPLETE BLOOD COUNT 1022496 ABS BASO 0.04 10e9/L 013 Unknown COMPLETE BLOOD COUNT 1445964 RDW-SD 45.6 fL 3 Unknown GFR CALC 4823920 GFR AA >60 ML/MIN 09/25/2012 Unknown GFR CALC 1953743 GFR NON-AA >60 ML/MIN 09/25/2012 Unknown ERYTHROCYTE SEDIMENTATION RATE 09594 ESR 19 MM/HR 05/06/2012 Unknown VITAMIN B 12 FOLIC ACID 97008|51875 VIT B 12 922 PG/ML 04/11 Unknown VITAMIN B 12 FOLIC ACID 16109|59875 FOLIC ACID 13.6 NG/ML Unknown URIC ACID 10734 URIC ACID 7.8 MG/DL 05/06/2012 Unknown COMPLETE BLOOD COUNT 38987 WBC 11.9 10e9/L 012 Unknown COMPLETE BLOOD COUNT 52719 RBC 5.30 10e12/L 2011 Unknown COMPLETE BLOOD COUNT 23218 HGB 16.6 g/dL 2 Unknown COMPLETE BLOOD COUNT 00057 HCT DET 47.2 % 2 Unknown COMPLETE BLOOD COUNT 10226 MCV 89.1 fL 2 Unknown COMPLETE BLOOD COUNT 53779 MCH 31.3 pg 2 Unknown COMPLETE BLOOD COUNT 55566 MCHC 35.2 g/dL 2 Unknown COMPLETE BLOOD COUNT 38029 PLT 362 10e9/L 05/06/20 12 Unknown COMPLETE BLOOD COUNT 25054 MPV 9.4 fL 2 Unknown COMPLETE BLOOD COUNT 58851 CADEN % 68.2 % 2 Unknown COMPLETE BLOOD COUNT 06309 LY % 22.0 % 2 Unknown COMPLETE BLOOD COUNT 04971 MON % 6.9 % 2 Unknown COMPLETE BLOOD COUNT 78836 EOS % 2.6 % 2 Unknown COMPLETE BLOOD COUNT 28827 BASO % 0.3 % 2 Unknown COMPLETE BLOOD COUNT 41438 RDW 12.8 % 2 Unknown COMPLETE BLOOD COUNT 80526 ABS CADEN 8.12 10e9/L 012 Unknown COMPLETE BLOOD COUNT 61723 ABS LYMPH 2.62 10e9/L 012 Unknown COMPLETE BLOOD COUNT 19503 ABS MONO 0.82 10e9/L 012 Unknown COMPLETE BLOOD COUNT 52273 ABS EOS 0.31 10e9/L 012 Unknown COMPLETE BLOOD COUNT 15599 ABS BASO 0.04 10e9/L 012 Unknown COMPLETE BLOOD COUNT 72279 RDW-SD 41.5 fL 2 Unknown GFR CALC 3460327 GFR AA >60 ML/MIN 05/06/2012 Unknown GFR CALC 9568544 GFR NON-AA 58.0L ML/MIN 05/06/2012 Unkno wn FREE T4 19772 FREE T4 1.15 NG/DL 05/06/2012 Unknown THYROID STIMULATING HORMONE 39677 TSH 1.568 uIU/ML 05/06/2012 Unknown COMPREHENSIVE METABOLIC 59883 AST 20 U/L 2011 Unknown COMPREHENSIVE METABOLIC 58479 ALT 12 IU/L 2011 Unknown COMPREHENSIVE METABOLIC 72742 BUN 20 MG/DL 2011 Unknown COMPREHENSIVE METABOLIC 78746 ALBUMIN 4.5 GM/DL 2011 Unknown COMPREHENSIVE METABOLIC 87709 CHLORIDE 91 MMOL/L 2011 Unknown COMPREHENSIVE METABOLIC 99811 BILI TOT 0.4 MG/DL 2011 Unknown COMPREHENSIVE METABOLIC 93260 ALK PHOS 73 U/L 2011 Unknown COMPREHENSIVE METABOLIC 83914 SODIUM 139 MMOL/L 05/06 Unknown COMPREHENSIVE METABOLIC 38249 CREATININE 1.02 MG/DL 04/11 Unknown COMPREHENSIVE METABOLIC 93645 CALCIUM 9.7 MG/DL 2011 Unknown COMPREHENSIVE METABOLIC 78048 POTASSIUM 3.1 MMOL/L 05/06 Unknown COMPREHENSIVE METABOLIC 02286 PROT TOT 7.3 GM/DL 2011 Unknown COMPREHENSIVE METABOLIC 32651 Glucose 118 MG/DL 2011 Unknown COMPREHENSIVE METABOLIC 25033 BICARB 33 MMOL/L 2011 Unknown COMPREHENSIVE METABOLIC 36819 ANION GAP 15 MEQ/L 2011 Unknown Procedures Procedure Codes Date ROUTINE VENIPUNCTURE CPT-4: 40583 09/29/2019 URINALYSIS NONAUTO W/O SCOPE CPT-4: 21831 09/29/2019 COMPREHEN METABOLIC PANEL CPT-4: 34446 09/29/2019 LIPID PANEL CPT-4: 30689 09/29/2019 A1C HPLC CPT-4: 21794 09/29/2019 ASSAY OF FREE THYROXINE CPT-4: 10234 09/29/2019 ASSAY THYROID STIM HORMONE CPT-4: 06514 09/29/2019 COMPLETE CBC W/AUTO DIFF WBC CPT-4: 32948 09/29/2019 URINALYSIS NONAUTO W/O SCOPE CPT-4: 13021 09/30/2018 MICROALBUMIN QUANTITATIVE CPT-4: 27526 09/30/2018 CEFTRIAXONE SODIUM INJECTION CPT-4: J0696 06/19/2018 THER/PROPH/DIAG INJ SC/IM CPT-4: 87477 06/19/2018 CEFTRIAXONE SODIUM INJECTION CPT-4: J0696 06/17/2018 THER/PROPH/DIAG INJ SC/IM CPT-4: 34086 06/17/2018 THER/PROPH/DIAG INJ SC/IM CPT-4: 26792 05/16/2018 KETOROLAC TROMETHAMINE INJ CPT-4: J1885 05/16/2018 ONDANSETRON HCL INJECTION CPT-4: J2405 05/16/2018 THER/PROPH/DIAG INJ SC/IM CPT-4: 69835 05/16/2018 ROUTINE VENIPUNCTURE CPT-4: 27427 03/20/2018 COMPREHEN METABOLIC PANEL CPT-4: 46450 03/20/2018 DEXAMETHASONE SODIUM PHOS CPT-4: J1100 02/11/2018 THER/PROPH/DIAG INJ SC/IM CPT-4: 19833 02/11/2018 TRIAMCINOLONE ACET INJ NOS CPT-4: J3301 02/11/2018 CEFTRIAXONE SODIUM INJECTION CPT-4: J0696 02/01/2018 THER/PROPH/DIAG INJ SC/IM CPT-4: 07294 02/01/2018 CEFTRIAXONE SODIUM INJECTION CPT-4: J0696 01/30/2018 THER/PROPH/DIAG INJ SC/IM CPT-4: 92530 01/30/2018 ROUTINE VENIPUNCTURE CPT-4: 53402 12/10/2017 ASSAY OF FREE THYROXINE CPT-4: 90460 12/10/2017 ASSAY THYROID STIM HORMONE CPT-4: 85492 12/10/2017 COMPREHEN METABOLIC PANEL CPT-4: 24763 12/10/2017 COMPLETE CBC W/AUTO DIFF WBC CPT-4: 92112 12/10/2017 LIPID PANEL CPT-4: 77601 12/10/2017 A1C HPLC CPT-4: 92617 12/10/2017 CEFTRIAXONE SODIUM INJECTION CPT-4: J0696 12/10/2017 THER/PROPH/DIAG INJ SC/IM CPT-4: 71025 12/10/2017 CEFTRIAXONE SODIUM INJECTION CPT-4: J0696 12/07/2017 THER/PROPH/DIAG INJ SC/IM CPT-4: 57235 12/07/2017 DEXAMETHASONE SODIUM PHOS CPT-4: J1100 12/07/2017 THER/PROPH/DIAG INJ SC/IM CPT-4: 29912 12/07/2017 CEFTRIAXONE SODIUM INJECTION CPT-4: J0696 10/08/2017 THER/PROPH/DIAG INJ SC/IM CPT-4: 67359 10/08/2017 CEFTRIAXONE SODIUM INJECTION CPT-4: J0696 09/21/2017 THER/PROPH/DIAG INJ SC/IM CPT-4: 37201 09/21/2017 CEFTRIAXONE SODIUM INJECTION CPT-4: J0696 09/20/2017 THER/PROPH/DIAG INJ SC/IM CPT-4: 52347 09/20/2017 REMOVAL OF NAIL PLATE CPT-4: 48534 08/29/2017 THER/PROPH/DIAG INJ SC/IM CPT-4: 67415 08/29/2017 TRIAMCINOLONE ACET INJ NOS CPT-4: J3301 08/29/2017 CEFTRIAXONE SODIUM INJECTION CPT-4: J0696 08/29/2017 THER/PROPH/DIAG INJ SC/IM CPT-4: 64169 08/29/2017 DESTRUCT PREMALG LESION (Cryosurgery) CPT-4: 96883 ROUTINE VENIPUNCTURE CPT-4: 80274 06/27/2017 ASSAY OF FREE THYROXINE CPT-4: 61055 06/27/2017 ASSAY THYROID STIM HORMONE CPT-4: 50708 06/27/2017 COMPREHEN METABOLIC PANEL CPT-4: 37007 06/27/2017 COMPLETE CBC W/AUTO DIFF WBC CPT-4: 63573 06/27/2017 EXC TR-EXT B9+REECE 0.5 CM< CPT-4: 02035 01/24/2017 THER/PROPH/DIAG INJ SC/IM CPT-4: 25764 08/02/2016 DEXAMETHASONE SODIUM PHOS CPT-4: J1100 08/02/2016 DESTRUCT PREMALG LESION (Cryosurgery) CPT-4: 74861 EXC TR-EXT B9+REECE 0.5 CM< CPT-4: 69400 08/01/2016 AEROBIC WOUND CULTURE & STN CPT-4: 94587 07/06/2016 CEFTRIAXONE SODIUM INJECTION CPT-4: J0696 05/25/2016 THER/PROPH/DIAG INJ SC/IM CPT-4: 19905 05/25/2016 THER/PROPH/DIAG INJ SC/IM CPT-4: 83331 04/26/2016 DEXAMETHASONE SODIUM PHOS CPT-4: J1100 04/26/2016 CEFTRIAXONE SODIUM INJECTION CPT-4: J0696 04/26/2016 THER/PROPH/DIAG INJ SC/IM CPT-4: 91988 04/26/2016 THER/PROPH/DIAG INJ SC/IM CPT-4: 11532 02/09/2016 TRIAMCINOLONE ACET INJ NOS CPT-4: J3301 02/09/2016 URINALYSIS NONAUTO W/O SCOPE CPT-4: 12636 01/24/2016 URINE CULTURE/ COLONY COUNT CPT-4: 74063 01/24/2016 THER/PROPH/DIAG INJ SC/IM CPT-4: 34307 12/08/2015 TRIAMCINOLONE ACET INJ NOS CPT-4: J3301 12/08/2015 THER/PROPH/DIAG INJ SC/IM CPT-4: 72263 10/07/2015 TRIAMCINOLONE ACET INJ NOS CPT-4: J3301 10/07/2015 DESTRUCT PREMALG LESION (Cryosurgery) CPT-4: 91570 THER/PROPH/DIAG INJ SC/IM CPT-4: 92202 03/16/2015 METHYLPREDNISOLONE 40 MG INJ CPT-4: J1030 03/16/2015 DESTRUCT PREMALG LESION (Cryosurgery) CPT-4: 72379 THER/PROPH/DIAG INJ SC/IM CPT-4: 64071 09/11/2014 METHYLPREDNISOLONE 40 MG INJ CPT-4: J1030 09/11/2014 TRIAMCINOLONE ACET INJ NOS CPT-4: J3301 09/11/2014 CEFTRIAXONE SODIUM INJECTION CPT-4: J0696 09/11/2014 THER/PROPH/DIAG INJ SC/IM CPT-4: 82562 09/11/2014 ROUTINE VENIPUNCTURE CPT-4: 72690 08/27/2014 COMPREHEN METABOLIC PANEL CPT-4: 79714 08/27/2014 COMPLETE CBC W/AUTO DIFF WBC CPT-4: 95474 08/27/2014 LIPID PANEL CPT-4: 19951 08/27/2014 ROUTINE VENIPUNCTURE CPT-4: 58820 07/21/2014 ASSAY OF AMYLASE CPT-4: 76106 07/21/2014 ASSAY OF LIPASE CPT-4: 23949 07/21/2014 THER/PROPH/DIAG INJ SC/IM CPT-4: 86919 07/15/2014 TRIAMCINOLONE ACET INJ NOS CPT-4: J3301 07/15/2014 ROUTINE VENIPUNCTURE CPT-4: 27078 05/14/2014 ASSAY OF FREE THYROXINE CPT-4: 55027 05/14/2014 ASSAY THYROID STIM HORMONE CPT-4: 39020 05/14/2014 COMPREHEN METABOLIC PANEL CPT-4: 99708 05/14/2014 COMPLETE CBC W/AUTO DIFF WBC CPT-4: 05700 05/14/2014 LIPID PANEL CPT-4: 46033 05/14/2014 CEFTRIAXONE SODIUM INJECTION CPT-4: J0696 04/21/2014 THER/PROPH/DIAG INJ SC/IM CPT-4: 19365 04/21/2014 THER/PROPH/DIAG INJ SC/IM CPT-4: 05625 04/21/2014 TRIAMCINOLONE ACET INJ NOS CPT-4: J3301 04/21/2014 THER/PROPH/DIAG INJ SC/IM CPT-4: 96869 03/04/2014 METHYLPREDNISOLONE 40 MG INJ CPT-4: J1030 03/04/2014 TRIAMCINOLONE ACET INJ NOS CPT-4: J3301 03/04/2014 CEFTRIAXONE SODIUM INJECTION CPT-4: J0696 03/04/2014 THER/PROPH/DIAG INJ SC/IM CPT-4: 54866 03/04/2014 TDAP VACCINE 7 YRS/> IM CPT-4: 63121 02/27/2014 IMMUNIZATION ADMIN CPT-4: 18267 02/27/2014 DESTRUCT PREMALG LESION (Cryosurgery) CPT-4: 36827 DESTRUCT PREMALG LES 2-14 CPT-4: 15742 01/13/2014 THER/PROPH/DIAG INJ SC/IM CPT-4: 47946 10/21/2013 METHYLPREDNISOLONE 40 MG INJ CPT-4: J1030 10/21/2013 TRIAMCINOLONE ACET INJ NOS CPT-4: J3301 10/21/2013 CEFTRIAXONE SODIUM INJECTION CPT-4: J0696 08/27/2013 THER/PROPH/DIAG INJ SC/IM CPT-4: 21948 08/27/2013 THER/PROPH/DIAG INJ SC/IM CPT-4: 03838 08/27/2013 METHYLPREDNISOLONE 40 MG INJ CPT-4: J1030 08/27/2013 TRIAMCINOLONE ACET INJ NOS CPT-4: J3301 08/27/2013 THER/PROPH/DIAG INJ SC/IM CPT-4: 07830 06/23/2013 METHYLPREDNISOLONE 40 MG INJ CPT-4: J1030 06/23/2013 TRIAMCINOLONE ACET INJ NOS CPT-4: J3301 06/23/2013 THER/PROPH/DIAG INJ SC/IM CPT-4: 54081 05/26/2013 METHYLPREDNISOLONE 40 MG INJ CPT-4: J1030 05/26/2013 TRIAMCINOLONE ACET INJ NOS CPT-4: J3301 05/26/2013 ROUTINE VENIPUNCTURE CPT-4: 16366 03/05/2013 ASSAY OF FREE THYROXINE CPT-4: 10511 03/05/2013 ASSAY THYROID STIM HORMONE CPT-4: 94308 03/05/2013 COMPREHEN METABOLIC PANEL CPT-4: 78436 03/05/2013 COMPLETE CBC W/AUTO DIFF WBC CPT-4: 89287 03/05/2013 A1C GLYCOSYLATED HEMOGLOBIN TEST CPT-4: 68482 013 DRAIN/INJECT JOINT/BURSA CPT-4: 71763 12/04/2012 METHYLPREDNISOLONE 40 MG INJ CPT-4: J1030 12/04/2012 TRIAMCINOLONE ACET INJ NOS CPT-4: J3301 12/04/2012 CEFTRIAXONE SODIUM INJECTION CPT-4: J0696 11/21/2012 THER/PROPH/DIAG INJ SC/IM CPT-4: 60327 11/21/2012 THER/PROPH/DIAG INJ SC/IM CPT-4: 43727 10/14/2012 METHYLPREDNISOLONE 40 MG INJ CPT-4: J1030 10/14/2012 TRIAMCINOLONE ACET INJ NOS CPT-4: J3301 10/14/2012 URINALYSIS NONAUTO W/O SCOPE CPT-4: 49582 09/27/2012 ROUTINE VENIPUNCTURE CPT-4: 31847 09/25/2012 ASSAY OF FREE THYROXINE CPT-4: 72026 09/25/2012 ASSAY THYROID STIM HORMONE CPT-4: 19648 09/25/2012 COMPREHEN METABOLIC PANEL CPT-4: 12761 09/25/2012 COMPLETE CBC W/AUTO DIFF WBC CPT-4: 62316 09/25/2012 C-REACTIVE PROTEIN CPT-4: 69104 09/25/2012 THER/PROPH/DIAG INJ SC/IM CPT-4: 23879 08/29/2012 METHYLPREDNISOLONE 40 MG INJ CPT-4: J1030 08/29/2012 TRIAMCINOLONE ACET INJ NOS CPT-4: J3301 08/29/2012 DESTRUCT PREMALG LESION (Cryosurgery) CPT-4: 06149 THER/PROPH/DIAG INJ SC/IM CPT-4: 86126 05/06/2012 METHYLPREDNISOLONE 40 MG INJ CPT-4: J1030 05/06/2012 TRIAMCINOLONE ACET INJ NOS CPT-4: J3301 05/06/2012 VITAMIN B 12 FOLIC ACID CPT-4: 01072|44839 05/06/2012 RBC SED RATE AUTOMATED CPT-4: 75601 05/06/2012 ROUTINE VENIPUNCTURE CPT-4: 86687 05/06/2012 ASSAY OF FREE THYROXINE CPT-4: 65781 05/06/2012 ASSAY THYROID STIM HORMONE CPT-4: 75970 05/06/2012 COMPREHEN METABOLIC PANEL CPT-4: 18705 05/06/2012 COMPLETE CBC W/AUTO DIFF WBC CPT-4: 48283 05/06/2012 ASSAY OF BLOOD/URIC ACID CPT-4: 82507 05/06/2012 THER/PROPH/DIAG INJ SC/IM CPT-4: 61618 03/19/2012 KETOROLAC TROMETHAMINE INJ CPT-4: J1885 03/19/2012 KETOROLAC TROMETHAMINE INJ CPT-4: J1885 01/30/2012 THER/PROPH/DIAG INJ SC/IM CPT-4: 24712 01/30/2012 PROMETHAZINE HCL INJECTION CPT-4: J2550 01/30/2012 THER/PROPH/DIAG INJ SC/IM CPT-4: 28311 01/24/2012 METHYLPREDNISOLONE 40 MG INJ CPT-4: J1030 01/24/2012 TRIAMCINOLONE ACET INJ NOS CPT-4: J3301 01/24/2012 THER/PROPH/DIAG INJ SC/IM CPT-4: 66266 09/13/2011 KETOROLAC TROMETHAMINE INJ CPT-4: J1885 09/13/2011 THER/PROPH/DIAG INJ SC/IM CPT-4: 58032 09/13/2011 PROMETHAZINE HCL INJECTION CPT-4: J2550 09/13/2011 CEFTRIAXONE SODIUM INJECTION CPT-4: J0696 07/20/2011 THER/PROPH/DIAG INJ SC/IM CPT-4: 43547 07/20/2011 THER/PROPH/DIAG INJ SC/IM CPT-4: 28563 07/20/2011 METHYLPREDNISOLONE INJECTION CPT-4: J2930 07/20/2011 URINALYSIS NONAUTO W/O SCOPE CPT-4: 27405 05/09/2011 CEFTRIAXONE SODIUM INJECTION CPT-4: J0696 05/09/2011 THER/PROPH/DIAG INJ SC/IM CPT-4: 33835 05/09/2011 THER/PROPH/DIAG INJ SC/IM CPT-4: 16241 05/09/2011 PROMETHAZINE HCL INJECTION CPT-4: J2550 05/09/2011 HYDRATION IV INFUSION INIT CPT-4: 31712 05/09/2011 DESTRUCT PREMALG LESION (Cryosurgery) CPT-4: 45116 DESTRUCT PREMALG LES 2-14 CPT-4: 50669 07/19/2010 REMOVAL OF SKIN TAGS <W/15 CPT-4: 77804 05/30/2010 THER/PROPH/DIAG INJ SC/IM CPT-4: 49066 04/05/2010 CEFTRIAXONE SODIUM INJECTION CPT-4: J0696 04/05/2010 TRIAMCINOLONE ACET INJ NOS CPT-4: J3301 04/05/2010 METHYLPREDNISOLONE 40 MG INJ CPT-4: J1030 04/05/2010 THER/PROPH/DIAG INJ SC/IM CPT-4: 72161 04/05/2010 TRIAMCINOLONE ACET INJ NOS CPT-4: J3301 03/09/2010 METHYLPREDNISOLONE 40 MG INJ CPT-4: J1030 03/09/2010 THER/PROPH/DIAG INJ SC/IM CPT-4: 65041 03/09/2010 THER/PROPH/DIAG INJ SC/IM CPT-4: 05067 03/09/2010 CEFTRIAXONE SODIUM INJECTION CPT-4: J0696 03/09/2010 [...] 1: 132/80 Code: 8480-6 BMI: 35.8 Code: 22045-0 Heart Rate 1: 88 bpm Height: 5'4" Respiratory Rate: 20 bpm SpO2: 95% Tempera ture: 36.9 (C) / 98.5 (F) Weight: 210 lbs 05/28/2019 Blood Pressure 1: 126/82 Code: 8480-6 BMI: 35.0 Code: 11637-8 Heart Rate 1: 88 bpm Height: 5'4" [...] 1: 128/90 Code: 8480-6 BMI: 37.2 Code: 20555-2 Heart Rate 1: 84 bpm Height: 5'4" Respiratory Rate: 20 bpm SpO2: 95% Tempera ture: 36.6 (C) / 97.8 (F) Weight: 217 lbs 08/27/2018 Blood Pressure 1: 128/88 Code: 8480-6 BMI: 38.3 Code: 37073-0 Heart Rate 1: 84 bpm Height: 5'4" [...] 1: 119/72 Code: 8480-6 BMI: 37.4 Code: 48321-7 Heart Rate 1: 82 bpm Height: 5'4" Respiratory Rate: 12 bpm SpO2: 94% Tempera ture: 35.2 (C) / 95.4 (F) Weight: 218 lbs 12/18/2017 Blood Pressure 1: 128/86 Code: 8480-6 BMI: 37.8 Code: 70525-0 Heart Rate 1: 84 bpm Height: 5'4" [...] 1: 128/82 Code: 8480-6 BMI: 35.5 Code: 37801-8 Heart Rate 1: 84 bpm Height: 5'4" [...] 1: 128/82 Code: 8480-6 BMI: 30.2 Code: 90422-8 Heart Rate 1: 80 bpm Height: 5'4" [...] 1: 128/86 Code: 8480-6 BMI: 32.8 Code: 15404-3 Heart Rate 1: 66 bpm Height: 5'4" Respiratory Rate: 18 bpm Temperature: 36 .3 (C) / 97.3 (F) Weight: 191 lbs 06/23/2013 Blood Pressure 1: 132/94 Code: 8480-6 BMI: 34.0 Code: 81247-0 Heart Rate 1: 84 bpm Height: 5'4" Respiratory Rate: 20 bpm Temperature: 36 .8 (C) / 98.2 (F) Weight: 198 lbs 05/26/2013 Blood Pressure 1: 114/80 Code: 8480-6 BMI: 35.0 Code: 84504-9 Heart Rate 1: 80 bpm Height: 5'4" Respiratory Rate: 20 bpm Temperature: 36 .4 (C) / 97.6 (F) Weight: 204 lbs 04/16/2013 Blood Pressure 1: 114/82 Code: 8480-6 BMI: 36.7 Code: 45842-1 Heart Rate 1: 84 bpm Height: 5'4" Respiratory Rate: 20 bpm Temperature: 36 .7 (C) / 98.0 (F) Weight: 214 lbs 03/05/2013 Blood Pressure 1: 136/90 Code: 8480-6 BMI: 37.1 Code: 74732-6 Heart Rate 1: 84 bpm Height: 5'4" [...] 1: 168/114 Code: 8480-6 BMI: 36.2 Code: 59211-6 Heart Rate 1: 104 bpm Height: 5'4" Respiratory Rate: 20 bpm Temperature: 36 .8 (C) / 98.2 (F) Weight: 211 lbs 11/22/2012 Blood Pressure 1: 128/90 Code: 8480-6 Heart Rate 1: 88 bpm Respiratory Rate: 20 bpm SpO2: 96% Temperature: 36.8 (C) / 98.2 (F) 11/21/2012 Blood Pressure 1: 146/100 Code: 8480-6 BMI: 35.7 Code: 79880-2 Heart Rate 1: 96 bpm Height: 5'4" [...] 1: 138/100 Code: 8480-6 BMI: 35.7 Code: 72757-7 Heart Rate 1: 96 bpm Height: 5'4" Respiratory Rate: 20 bpm Temperature: 36 .8 (C) / 98.2 (F) Weight: 208 lbs 05/06/2012 Blood Pressure 1: 154/102 Code: 8480-6 BMI: 34.7 Code: 49195-8 Heart Rate 1: 116 bpm Height: 5'4" Respiratory Rate: 20 bpm Temperature: 36 .8 (C) / 98.2 (F) Weight: 202 lbs 04/03/2012 Blood Pressure 1: 134/94 Code: 8480-6 BMI: 34.8 Code: 50756-8 Heart Rate 1: 108 bpm Height: 5'4" Respiratory Rate: 20 bpm Temperature: 36 .8 (C) / 98.2 (F) Weight: 203 lbs 03/19/2012 Blood Pressure 1: 148/106 Code: 8480-6 BMI: 35.0 Code: 50391-1 Heart Rate 1: 100 bpm Height: 5'4" Respiratory Rate: 20 bpm Temperature: 36 .6 (C) / 97.9 (F) Weight: 204 lbs 02/22/2012 Blood Pressure 1: 146/94 Code: 8480-6 He art Rate 1: 88 bpm 02/21/2012 Blood Pressure 1: 172/120 Code: 8480-6 B lood Pressure 2: 152/106 Code: 8480-6 Heart Rate 1: 116 bpm 02/20/2012 Blood Pressure 1: 160/100 Code: 8480-6 BMI: 32.0 Code: 60903-9 Heart Rate 1: 84 bpm Height: 5'7" Temperature: 36.5 (C) / 97.7 (F) Weight: 204 lbs 01/30/2012 Blood Pressure 1: 152/110 Code: 8480-6 BMI: 32.0 Code: 79188-2 Heart Rate 1: 116 bpm Height: 5'7" Respiratory Rate: 20 bpm Temperature: 37 .0 (C) / 98.6 (F) Weight: 204 lbs 01/24/2012 Blood Pressure 1: 146/100 Code: 8480-6 BMI: 32.0 Code: 65345-0 Heart Rate 1: 100 bpm Height: 5'7" Respiratory Rate: 20 bpm Temperature: 36 .7 (C) / 98.0 (F) Weight: 204 lbs 01/10/2012 Blood Pressure 1: 156/94 Code: 8480-6 BMI: 32.6 Code: 59899-0 Heart Rate 1: 72 bpm Height: 5'7" Respiratory Rate: 20 bpm Temperature: 36 .8 (C) / 98.2 (F) Weight: 208 lbs 12/11/2011 Blood Pressure 1: 146/100 Code: 8480-6 Heart Rat e 1: 116 bpm Height: 5'7" Respiratory Rate: 20 bpm Temperature: 36.9 (C) / 98.4 (F) We ight: 11/09/2011 Blood Pressure 1: 148/96 Code: 8480-6 BMI: 32.1 Code: 69751-5 Heart Rate 1: 116 bpm Height: 5'7" Respiratory Rate: 20 bpm Temperature: 36 .7 (C) / 98.0 (F) Weight: 205 lbs 09/13/2011 Blood Pressure 1: 126/88 Code: 8480-6 Heart Rate 1: 88 bpm Height: 5'7" Respiratory Rate: 20 bpm Temperature: 36.9 (C) / 98.4 (F) We ight: 08/31/2011 Blood Pressure 1: 118/82 Code: 8480-6 BMI: 32.0 Code: 75430-8 Heart Rate 1: 80 bpm Height: 5'7" Temperature: 36.4 (C) / 97.6 (F) Weight: 204 lbs 07/06/2011 Blood Pressure 1: 128/86 Code: 8480-6 BMI: 30.9 Code: 70574-3 Heart Rate 1: 92 bpm Height: 5'7" Respiratory Rate: 20 bpm Temperature: 36 .9 (C) / 98.4 (F) Weight: 197 lbs 06/06/2011 Blood Pressure 1: 112/74 Code: 8480-6 BMI: 31.0 Code: 16534-0 Heart Rate 1: 72 bpm Height: 5'7" [...] 1: 128/92 Code: 8480-6 BMI: 33.6 Code: 21050-0 Heart Rate 1: 104 bpm Height: 5'4" [...] Check-up Encounters Encounter Performer Location Codes Date ([id number]) OFFICE/OUTPATIENT VISIT EST Diagnosis: Type 2 diabetes mellitus with hyperglycemia[ICD10: E11.65] María Elena APPIA[facility] CPT-4: 91185 11/20/2019 ([id number]) OFFICE/OUTPATIENT VISIT EST Diagnosis: Ingrowing nail[ICD10: L60.0] Diagnosis: Type 2 diabetes mellitus with hyperglycemia[ICD10: E11.65] Kathleen Nadia [facility] CPT-4: 93778 10/07/2019 ([id number]) OFFICE/OUTPATIENT VISIT EST Diagnosis: DM w/o complication type II, uncontrolled[ICD10: E11.65] Diagnosis: Hypertriglyceridemia[ICD10: E78.1] Diagnosis: Essential hypertension[ICD10: I10] María Elena JEAN [employer] [facility] CPT-4: 14519 09/30/2019 ([id number]) NURSE/OUTPATIENT VISIT EST Diagnosis: Essential (primary) hypertension[ICD10: I10] Diagnosis: Cervicalgia[ICD10: M54.2] Diagnosis: Hyperglycemia, unspecified[ICD10: R73.9] Diagnosis: Mixed hyperlipidemia[ICD10: E78.2] María Elenamarcella BASURTO TED [employer] [facility] CPT-4: 44009 09/29/2019 ([id number]) OFFICE/OUTPATIENT VISIT EST Diagnosis: Essential (primary) hypertension[ICD10: I10] Diagnosis: Fall from bed, sequela[ICD10: W06.XXXS] María Elenamarcella Appiah KYLAH BRAUNGAEL Fabiola [facility] CPT-4: 58441 05/28/2019 ([id number]) NURSE/OUTPATIENT VISIT EST Diagnosis: Essential (primary) hypertension[ICD10: I10] María Elena Way[employer]ane [facility] CPT-4: 00648 05/19/2019 ([id number]) OFFICE/OUTPATIENT VISIT EST Diagnosis: Essential (primary) hypertension[ICD10: I10] Diagnosis: Type 2 diabetes mellitus with hyperglycemia[ICD10: E11.65] Diagnosis: Intervertebral disc disorders with radiculopathy, 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] Diagnosis: Hormone replacement therapy[ICD10: Z79.890] María Elenagael Appiah MARÍA ELENA Fabiola [facility] CPT-4: 93239 01/22/2019 ([id number]) OFFICE/OUTPATIENT VISIT EST Diagnosis: Essential (primary) hypertension[ICD10: I10] Diagnosis: Type 2 diabetes mellitus with hyperglycemia[ICD10: E11.65] María Elena MONTEROQUELINE Fabiola APPI[facility] CPT-4: 33815 09/30/2018 ([id number]) OFFICE/OUTPATIENT VISIT EST Diagnosis: Pain in left elbow[ICD10: M25.522] Diagnosis: Acute stress reaction[ICD10: F43.0] Diagnosis: Primary insomnia[ICD10: F51.01] Diagnosis: Abnormal weight gain[ICD10: R63.5] María Elena APPIAH [facility] CPT-4: 31253 08/27/2018 ([id number]) OFFICE/OUTPATIENT VISIT EST Diagnosis: Acute recurrent sinusitis, unspecified[ICD10: J01.91] Diagnosis: Follicular disorder, unspecified[ICD10: L73.9] Diagnosis: Tinea corporis[ICD10: B35.4] María Elena APPIAH [facility] CPT-4: 12376 08/09/2018 ([id number]) OFFICE/OUTPATIENT VISIT EST Diagnosis: Tinea corporis[ICD10: B35.4] Diagnosis: Anxiety disorder, unspecified[ICD10: F41.9] Diagnosis: Menopausal and female climacteric states[ICD10: N95.1] María Elena APPIAH [facility] CPT-4: 75631 07/22/2018 ([id number]) NURSE/OUTPATIENT VISIT EST Diagnosis: Cellulitis of right toe[ICD10: L03.031] María Elena APPIAH [facility] CPT-4: 05071 06/19/2018 ([id number]) OFFICE/OUTPATIENT VISIT EST Diagnosis: Cellulitis of right toe[ICD10: L03.031] Kathleen APPIAH [facility] CPT-4: 90622 06/17/2018 ([id number]) OFFICE/OUTPATIENT VISIT EST Diagnosis: Migraine without aura, intractable, without status migrainosus[ICD10: G43.019] Diagnosis: Zoster without complications[ICD10: B02.9] Kathleen APPIAH [facility] CPT-4: 48349 05/16/2018 ([id number]) OFFICE/OUTPATIENT VISIT EST Diagnosis: Cellulitis of right lower limb[ICD10: L03.115] Kathleen APPIAH [facility] CPT-4: 59155 03/20/2018 ([id number]) OFFICE/OUTPATIENT VISIT EST Diagnosis: Cellulitis of right lower limb[ICD10: L03.115] Kathleen APPIAH DO [employer] CPT-4: 43496 03/18/2018 ([id number]) OFFICE/OUTPATIENT VISIT EST Diagnosis: Cellulitis of right lower limb[ICD10: L03.115] Kathleen APPIAH DO [employer] CPT-4: 31814 03/15/2018 ([id number]) OFFICE/OUTPATIENT VISIT EST Diagnosis: Acute sinusitis, unspecified[ICD10: J01.90] Kathleen APPIAH DO [facility] CPT-4: 86649 02/11/2018 ([id number]) NURSE/OUTPATIENT VISIT EST Diagnosis: Otitis media, unspecified, right ear[ICD10: H66.91] María Elena APPIAH [facility] CPT-4: 33686 02/01/2018 ([id number]) OFFICE/OUTPATIENT VISIT EST Diagnosis: Acute suppurative otitis media without spontaneous rupture of ear drum, left ear[ICD10: H66.002] Diagnosis: Abnormal weight gain[ICD10: R63.5] Diagnosis: Intervertebral disc disorders with radiculopathy, 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] Kathleen APPIAH DO [employer] CPT-4: 99 214 01/30/2018 ([id number]) PREV VISIT EST AGE 40-64 Diagnosis: Encounter for general adult medical examination without abnormal findings[ICD10: Z00.00] Diagnosis: Essential (primary) hypertension[ICD10: I10] Diagnosis: Mixed hyperlipidemia[ICD10: E78.2] Diagnosis: Type 2 diabetes mellitus with hyperglycemia[ICD10: E11.65] Diagnosis: 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] María Elena APPIAH [employer] [facility] CPT-4: 75669 12/18/2017 ([id number]) OFFICE/OUTPATIENT VISIT EST Diagnosis: Cellulitis of right toe[ICD10: L03.031] Diagnosis: Mixed hyperlipidemia[ICD10: E78.2] Diagnosis: Essential (primary) hypertension[ICD10: I10] Diagnosis: Hyperglycemia, unspecified[ICD10: R73.9] Diagnosis: Nontoxic goiter, 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] María Elena APPIAH DO [facility] CPT-4: 51294 12/10/2017 ([id number]) OFFICE/OUTPATIENT VISIT EST Diagnosis: Cellulitis of right toe[ICD10: L03.031] Diagnosis: Acute sinusitis, unspecified[ICD10: J01.90] Kathleen APPIAH DO [facility] CPT-4: 31742 12/07/2017 OFFICE/OUTPATIENT VISIT EST Diagnosis: Acute maxillary sinusitis, unspecified[ICD10: J01.00] Kathleen APPIAH DO [facility] CPT-4: 58314 10/08/2017 ([id number]) OFFICE/OUTPATIENT VISIT EST Diagnosis: Cellulitis of left toe[ICD10: L03.032] María Elena APPIAH DO [facility] CPT-4: 03062 09/21/2017 ([id number]) OFFICE/OUTPATIENT VISIT EST Diagnosis: Insomnia, unspecified[ICD10: G47.00] Diagnosis: Major depressive disorder, single episode, unspecified[ICD10: F32.9] Diagnosis: Anxiety disorder, unspecified[ICD10: F41.9] Diagnosis: Cellulitis of left toe[ICD10: L03.032] Diagnosis: Snoring[ICD10: R06.83] Kathleen APPIAH DO [facility] CPT-4: 69405 09/20/2017 ([id number]) OFFICE/OUTPATIENT VISIT EST Diagnosis: Cellulitis of left toe[ICD10: L03.032] María Elena APPIAH DO [facility] CPT-4: 93485 07/19/2017 OFFICE/OUTPATIENT VISIT EST Diagnosis: Chronic sinusitis, unspecified[ICD10: J32.9] Diagnosis: Generalized hyperhidrosis[ICD10: R61] Kathleen APPIAH DO [facility] CPT-4: 84781 06/27/2017 ([id number]) OFFICE/OUTPATIENT VISIT EST Diagnosis: Intervertebral disc disorders with radiculopathy, 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] Diagnosis: Primary insomnia[ICD10: F51.01] Diagnosis: Other fatigue[ICD10: R53.83] María Elena APPIAH DO [facility] CPT-4: 23498 04/10/2017 ([id number]) OFFICE/OUTPATIENT VISIT EST Diagnosis: Primary insomnia[ICD10: F51.01] Diagnosis: Localized edema[ICD10: R60.0] Diagnosis: 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] María Elena APPIAH DO [facility] CPT-4: 09375 12/13/2016 ([id number]) OFFICE/OUTPATIENT VISIT EST Diagnosis: Primary insomnia[ICD10: F51.01] Diagnosis: Cyanosis[ICD10: R23.0] María Elena [facility] CPT-4: 72709 11/01/2016 ([id number]) PREV VISIT EST AGE 40-64 Diagnosis: Encounter for gynecological examination (general) (routine) without abnormal findings[ICD10: Z01.419] Diagnosis: Encounter for routine child health examination without abnormal findings[ICD10: Z00.129] María Elena APPIAH [facility] CPT-4: 13283 10/17/2016 ([id number]) OFFICE/OUTPATIENT VISIT EST Diagnosis: Other seasonal allergic rhinitis[ICD10: J30.2] María Elena APPIAH DO [facility] CPT-4: 60367 10/10/2016 ([id number]) OFFICE/OUTPATIENT VISIT EST Diagnosis: Pain in left arm[ICD10: M79.602] Diagnosis: Contact with and (suspected) exposure to potentially hazardous body fluids[ICD10: Z77.21] Diagnosis: 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, 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] Diagnosis: Unspecified open wound, right foot, sequela[ICD10: S91.301S] María Elena APPIAH DO [facility] CPT-4: 97768 09/19/2016 ([id number]) OFFICE/OUTPATIENT VISIT EST Diagnosis: Chronic sinusitis, unspecified[ICD10: J32.9] Diagnosis: Allergic rhinitis due to pollen[ICD10: J30.1] María Elena APPIAH DO [facility] CPT-4: 79378 08/24/2016 ([id number]) OFFICE/OUTPATIENT VISIT EST Diagnosis: Acute bronchitis, unspecified[ICD10: J20.9] María Elena APPIAH DO [facility] CPT-4: 78923 08/16/2016 ([id number]) OFFICE/OUTPATIENT VISIT EST Diagnosis: Otitis media, unspecified, right ear[ICD10: H66.91] Diagnosis: Acute bronchitis, unspecified[ICD10: J20.9] María Elena APPIAH DO [facility] CPT-4: 20378 08/10/2016 ([id number]) OFFICE/OUTPATIENT VISIT EST Diagnosis: Acute recurrent sinusitis, unspecified[ICD10: J01.91] Diagnosis: Allergic rhinitis due to pollen[ICD10: J30.1] María Elena APPIAH DO [facility] CPT-4: 80800 08/02/2016 ([id number]) OFFICE/OUTPATIENT VISIT EST Diagnosis: Pain in unspecified joint[ICD10: M25.50] María Elena APPIAH DO [facility] CPT-4: 88158 07/27/2016 OFFICE/OUTPATIENT VISIT EST Diagnosis: 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] Diagnosis: Acute recurrent sinusitis, unspecified[ICD10: J01.91] Diagnosis: Other fatigue[ICD10: R53.83] Diagnosis: Primary insomnia[ICD10: F51.01] Diagnosis: Pain in unspecified joint[ICD10: M25.50] María Elena APPIAH DO [facility] CPT-4: 07469 07/20/2016 ([id number]) OFFICE/OUTPATIENT VISIT EST Diagnosis: Blister (nonthermal), left great toe, initial encounter[ICD10: S90.422A] Loan APPIAH DO [facility] CPT-4: 40064 ([id number]) OFFICE/OUTPATIENT VISIT EST Diagnosis: Acute recurrent sinusitis, unspecified[ICD10: J01.91] María Elena APPIAH DO [facility] CPT-4: 49401 05/25/2016 ([id number]) OFFICE/OUTPATIENT VISIT EST Diagnosis: Acute sinusitis, unspecified[ICD10: J01.90] María Elena APPIAH DO [facility] CPT-4: 57354 04/26/2016 ([id number]) OFFICE/OUTPATIENT VISIT EST Diagnosis: Flushing[ICD10: R23.2] Diagnosis: Primary insomnia[ICD10: F51.01] María Elena APPIAH DO [facility] CPT-4: 96947 03/02/2016 ([id number]) OFFICE/OUTPATIENT VISIT EST Diagnosis: Other seasonal allergic rhinitis[ICD10: J30.2] Loan APPIAH [facility] CPT-4: 11678 02/09/2016 ([id number]) OFFICE/OUTPATIENT VISIT EST Diagnosis: Primary insomnia[ICD10: F51.01] Diagnosis: Urinary tract infection, site not specified[ICD10: N39.0] María Elena APPIAH [facility] CPT-4: 72142 01/24/2016 ([id number]) OFFICE/OUTPATIENT VISIT EST Diagnosis: Other specified disorders of Eustachian tube, bilateral[ICD10: H69.83] Diagnosis: Allergic rhinitis, unspecified[ICD10: J30.9] Loan APPIAH [facility] CPT-4: 25776 12/23/2015 ([id number]) OFFICE/OUTPATIENT VISIT EST Diagnosis: Acute recurrent sinusitis, unspecified[ICD10: J01.91] Diagnosis: 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] Diagnosis: Allergic rhinitis, unspecified[ICD10: J30.9] María Elena APPIAH [facility] CPT-4: 77867 12/08/2015 ([id number]) OFFICE/OUTPATIENT VISIT EST Diagnosis: Allergic rhinitis, unspecified[ICD10: J30.9] Diagnosis: Pain in unspecified joint[ICD10: M25.50] María Elena APPIAH [facility] CPT-4: 79747 10/07/2015 ([id number]) OFFICE/OUTPATIENT VISIT EST Diagnosis: Essential (primary) hypertension[ICD10: I10] María Elena APPIAH DO [facility] CPT-4: 60109 10/06/2015 OFFICE/OUTPATIENT VISIT EST Diagnosis: Localized enlarged lymph nodes[ICD10: R59.0] Diagnosis: Local infection of the skin and subcutaneous tissue, unspecified[ICD10: L08.9] June APPIAH [facility] CPT- 4: 93216 09/14/2015 ([id number]) OFFICE/OUTPATIENT VISIT EST Diagnosis: Essential (primary) hypertension[ICD10: I10] Diagnosis: Actinic keratosis[ICD10: L57.0] María Elena APPIAH [facility] CPT-4: 14317 09/07/2015 ([id number]) OFFICE/OUTPATIENT VISIT EST Diagnosis: Essential (primary) hypertension[ICD10: I10] Diagnosis: Acute stress reaction[ICD10: F43.0] María Elena APPIAH [facility] CPT-4: 63571 08/18/2015 ([id number]) OFFICE/OUTPATIENT VISIT EST Diagnosis: Essential (primary) hypertension[ICD10: I10] María Elena APPIAH [facility] CPT-4: 77469 07/07/2015 ([id number]) OFFICE/OUTPATIENT VISIT EST Diagnosis: Essential (primary) hypertension[ICD10: I10] María Elena APPIAH [facility] CPT-4: 81429 06/24/2015 ([id number]) OFFICE/OUTPATIENT VISIT EST Diagnosis: Essential (primary) hypertension[ICD10: I10] María Elena APPIAH [facility] CPT-4: 60040 06/21/2015 ([id number]) OFFICE/OUTPATIENT VISIT EST Diagnosis: Essential (primary) hypertension[ICD10: I10] Diagnosis: Mixed hyperlipidemia[ICD10: E78.2] Diagnosis: Acute stress reaction[ICD10: F43.0] Diagnosis: Primary insomnia[ICD10: F51.01] María Elena APPIAH [facility] CPT-4: 94073 06/16/2015 ([id number]) OFFICE/OUTPATIENT VISIT EST Diagnosis: INSOMNIA NOS[ICD9: 780.52] Diagnosis: HYPERTENSION[ICD9: 401.9] Diagnosis: Stress reaction[ICD9: 308.9] María Elena APPIAH [facility] CPT-4: 45616 06/02/2015 ([id number]) OFFICE/OUTPATIENT VISIT EST Diagnosis: HYPERTENSION[ICD9: 401.9] Diagnosis: Stress reaction[ICD9: 308.9] María Elena APPIAH [facility] CPT-4: 47443 05/20/2015 ([id number]) OFFICE/OUTPATIENT VISIT EST Diagnosis: Skin lesion[ICD9: 709.9] 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] María Elena APPIAH [facility] CPT-4: 07263 05/10/2015 ([id number]) OFFICE/OUTPATIENT VISIT EST Diagnosis: SINUSITIS, ACUTE[ICD9: 461.9] Diagnosis: ALLERGIC RHINITIS[ICD9: 477.9] Diagnosis: DERMATITIS NOS[ICD9: 692.9] María Elena REHMAN [facility] CPT-4: 16747 03/16/2015 OFFICE/OUTPATIENT VISIT EST Diagnosis: Otitis media[ICD9: 382.9] Diagnosis: SINUSITIS, ACUTE[ICD9: 461.9] June Felixgurmeetfatimah MARÍA ELENA APPIAH [facility] CPT-4: 73073 09/11/2014 ([id number]) OFFICE/OUTPATIENT VISIT EST Diagnosis: HYPERLIPIDEMIA NEC/NOS[ICD9: 272.4] María Elena APPIAH [facility] CPT-4: 93246 08/31/2014 ([id number]) OFFICE/OUTPATIENT VISIT EST Diagnosis: - I - HYPERTENSION[ICD9: 401.9] Diagnosis: HYPERLIPIDEMIA NEC/NOS[ICD9: 272.4] María Elena APPIAH [facility] CPT-4: 72013 08/27/2014 ([id number]) OFFICE/OUTPATIENT VISIT EST Diagnosis: ABDOMINAL PAIN[ICD9: 789.00] Diagnosis: DYSPEPSIA[ICD9: 536.8] Diagnosis: Thoracic back pain[ICD9: 724.1] María Elena APPIAH [facility] CPT-4: 42595 07/21/2014 ([id number]) OFFICE/OUTPATIENT VISIT EST Diagnosis: ALLERGIC RHINITIS[ICD9: 477.9] María Elena APPIAH [facility] CPT-4: 22169 07/15/2014 ([id number]) OFFICE/OUTPATIENT VISIT EST Diagnosis: EDEMA[ICD9: 782.3] Diagnosis: Chronic insomnia[ICD9: 780.52] María Elena APPIAH [facility] CPT-4: 73754 05/18/2014 ([id number]) OFFICE/OUTPATIENT VISIT EST Diagnosis: Thyromegaly[ICD9: 240.9] Diagnosis: - I - HYPERTENSION[ICD9: 401.9] Diagnosis: ROUTINE MEDICAL EXAM[ICD9: V70.0] Diagnosis: EDEMA[ICD9: 782.3] María Elena APPIAH DO [facility] CPT-4: 60438 05/14/2014 OFFICE/OUTPATIENT VISIT EST Diagnosis: BRONCHITIS, ACUTE[ICD9: 466.0] Diagnosis: SINUSITIS, ACUTE[ICD9: 461.9] María Elena APPIAH [facility] CPT-4: 82504 04/21/2014 OFFICE/OUTPATIENT VISIT EST Diagnosis: SINUSITIS, ACUTE[ICD9: 461.9] June Flores MARÍA ELENA APPIAH [facility] CPT-4: 37402 03/04/2014 ([id number]) OFFICE/OUTPATIENT VISIT EST Diagnosis: VACCINE FOR TDAP[ICD10: Z23] María Elena APPIAH DO [facility] CPT-4: 64347 02/27/2014 ([id number]) OFFICE/OUTPATIENT VISIT EST Diagnosis: Seborrheic keratoses, inflamed[ICD9: 702.11] Diagnosis: ACTINIC KERATOSIS[ICD9: 702.0] Diagnosis: INSOMNIA NOS[ICD9: 780.52] María Elena PANDYA [facility] CPT-4: 62208 01/13/2014 OFFICE/OUTPATIENT VISIT EST 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] Diagnosis: ALLERGIC RHINITIS[ICD9: 477.9] Diagnosis: Serous otitis media[ICD9: 381.4] María Elena APPIAH [facility] CPT-4: 30809 12/24/2013 ([id number]) OFFICE/OUTPATIENT VISIT EST Diagnosis: SINUSITIS, ACUTE[ICD9: 461.9] Diagnosis: ALLERGIC RHINITIS[ICD9: 477.9] 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] María Elena APPIAH [facility] CPT-4: 55272 11/12/2013 ([id number]) OFFICE/OUTPATIENT VISIT EST Diagnosis: ALLERGIC RHINITIS[ICD9: 477.9] Diagnosis: SINUSITIS, ACUTE[ICD9: 461.9] María Elena APPIAH [facility] CPT-4: 24405 10/21/2013 ([id number]) OFFICE/OUTPATIENT VISIT EST Diagnosis: ASYMPTOMATIC VARICOSE VEINS[ICD9: 454.9] Diagnosis: INSOMNIA NOS[ICD9: 780.52] [facility]: 40203 09/22/2013 OFFICE/OUTPATIENT VISIT EST Diagnosis: SINUSITIS, ACUTE[ICD9: 461.9] June VanAlbertadaniella [facility] CPT-4: 02957 08/27/2013 ([id number]) OFFICE/OUTPATIENT VISIT EST Diagnosis: CEPHALGIA[ICD9: 784.0] Diagnosis: CEPHALGIA, TENSION[ICD9: 307.81] 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] María Elena APPIAH [facility] CPT-4: 19940 08/04/2013 ([id number]) OFFICE/OUTPATIENT VISIT EST Diagnosis: Cervicalgia[ICD9: 723.1] Diagnosis: SPASM OF MUSCLE[ICD9: 728.85] Diagnosis: CEPHALGIA, TENSION[ICD9: 307.81] María Elena [facility] CPT-4: 32707 07/23/2013 ([id number]) OFFICE/OUTPATIENT VISIT EST 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] Diagnosis: ALLERGIC RHINITIS[ICD9: 477.9] María Elena Seamusabbey JUARES Lucio Jj TD [facility] CPT-4: 78836 06/23/2013 ([id number]) OFFICE/OUTPATIENT VISIT EST Diagnosis: ALLERGIC RHINITIS[ICD9: 477.9] Diagnosis: ACUTE SEROUS OTITIS MEDIA[ICD9: 381.01] 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] María Elena Seamusabbey JUARES LucioJj TD [facility] CPT-4: 75611 05/26/2013 ([id number]) OFFICE/OUTPATIENT VISIT EST Diagnosis: HYPERTENSION[ICD9: 401.9] Diagnosis: EDEMA[ICD9: 782.3] Diagnosis: Serous otitis media[ICD9: 381.4] María Elena Seamusabbey JUARES LucioJj TD [facility] CPT-4: 79190 04/16/2013 ([id number]) OFFICE/OUTPATIENT VISIT EST Diagnosis: SINUSITIS, ACUTE[ICD9: 461.9] Diagnosis: ALLERGIC RHINITIS[ICD9: 477.9] Diagnosis: EDEMA[ICD9: 782.3] Diagnosis: Thyromegaly[ICD9: 240.9] Diagnosis: MALAISE AND FATIGUE[ICD9: 780.79] María Elena Lopez LucioJj [facility] CPT-4: 51822 03/05/2013 ([id number]) OFFICE/OUTPATIENT VISIT EST Diagnosis: PAIN, LOWER BACK[ICD9: 724.2] Diagnosis: SPASM OF MUSCLE[ICD9: 728.85] María Elena JUARES LucioJj TD [facility] CPT-4: 57343 12/23/2012 OFFICE/OUTPATIENT VISIT EST Diagnosis: Low back pain[ICD9: 724.2] Lashawn Hicks [facility] CPT-4: 56177 12/16/2012 ([id number]) OFFICE/OUTPATIENT VISIT EST Diagnosis: PAIN, LOWER BACK[ICD9: 724.2] Diagnosis: SCIATICA[ICD9: 724.3] Diagnosis: Lumbar herniated disc[ICD9: 722.10] María Elena Hicks [facility] CPT-4: 91156 12/09/2012 ([id number]) OFFICE/OUTPATIENT VISIT EST Diagnosis: PAIN, LOWER BACK[ICD9: 724.2] Diagnosis: SCIATICA[ICD9: 724.3] Diagnosis: LUMBAR DISC DISPLACEMENT[ICD9: 722.10] María Elena ISAAC TANIA ValdesjJ TD [facility] CPT-4: 97995 12/04/2012 OFFICE/OUTPATIENT VISIT EST Diagnosis: Pneumonia[ICD9: 486] Mary Layne MONTEROQUELINE LucioJj TD [facility] CPT-4: 55724 11/22/2012 ([id number]) OFFICE/OUTPATIENT VISIT EST Diagnosis: PNEUMONIA, ORGANISM[ICD9: 486] Diagnosis: Exacerbation of RAD (reactive airway disease)[ICD9: 493.92] María Elena JUARES LucioJj TD [facility] CPT-4: 49271 11/21/2012 OFFICE/OUTPATIENT VISIT EST Diagnosis: HYPERTENSION[ICD9: 401.9] Diagnosis: Cephalgia[ICD9: 784.0] Lashawn JUARES LucioJj TD [facility] CPT-4: 06769 10/29/2012 ([id number]) OFFICE/OUTPATIENT VISIT EST Diagnosis: MALAISE AND FATIGUE[ICD9: 780.79] Diagnosis: ARTHRALGIA-MULTIPLE SITES[ICD9: 719.49] María Elena MONTERO APARNAGAEL LucioJj TD [facility] CPT-4: 64997 10/14/2012 ([id number]) OFFICE/OUTPATIENT VISIT EST Diagnosis: URINARY FREQUENCY[ICD9: 788.41] María Elena JUARES LucioJj TD [facility] CPT-4: 38920 09/27/2012 ([id number]) OFFICE/OUTPATIENT VISIT EST Diagnosis: MALAISE AND FATIGUE[ICD9: 780.79] Diagnosis: ARTHRALGIA-MULTIPLE SITES[ICD9: 719.49] María Elena REED LucioJj TD [facility] CPT-4: 74991 09/25/2012 ([id number]) OFFICE/OUTPATIENT VISIT EST Diagnosis: SINUSITIS, ACUTE[ICD9: 461.9] 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] María Elena JUARES Lucio. TD [facility] CPT-4: 39455 08/29/2012 OFFICE/OUTPATIENT VISIT EST Diagnosis: ACTINIC KERATOSIS[ICD9: 702.0] Diagnosis: Inflamed seborrheic keratosis[ICD9: 702.11] Diagnosis: Skin cancer of face[ICD9: 173.31] Diagnosis: HYPERTENSION[ICD9: 401.9] María Elena WAY [facility] CPT-4: 84816 08/12/2012 ([id number]) OFFICE/OUTPATIENT VISIT EST Diagnosis: ARTHRALGIA-MULTIPLE SITES[ICD9: 719.49] Diagnosis: GOUT[ICD9: 274.9] Diagnosis: HYPERTENSION[ICD9: 401.9] Diagnosis: Tachycardia[ICD9: 785.0] María Elena BRADFORD [facility] CPT-4: 64003 05/06/2012 ([id number]) OFFICE/OUTPATIENT VISIT EST Diagnosis: INSOMNIA NOS[ICD9: 780.52] María Elena MONTEROQUEGAEL ValdesJj [facility] CPT-4: 38578 04/03/2012 ([id number]) OFFICE/OUTPATIENT VISIT EST Diagnosis: INSOMNIA NOS[ICD9: 780.52] Diagnosis: HYPERTENSION[ICD9: 401.9] Diagnosis: MIGRAINE NOS/NOT INTRCBL[ICD9: 346.90] María Elena CulverJARED Fabiola [facility]: 66199 03/19/2012 ([id number]) OFFICE/OUTPATIENT VISIT EST Diagnosis: CELLULITIS[ICD9: 682.9] Diagnosis: Ankle pain[ICD9: 719.47] Diagnosis: HYPERTENSION[ICD9: 401.9] María Elena ValdesJj [facility] CPT-4: 50002 02/20/2012 ([id number]) OFFICE/OUTPATIENT VISIT EST Diagnosis: MIGRAINE NOS/NOT INTRCBL[ICD9: 346.90] Diagnosis: Vomiting[ICD9: 787.03] María Elena Waymindimaryjane MONTEROMARÍA ELENA LucioJj [facility] CPT-4: 09598 01/30/2012 ([id number]) OFFICE/OUTPATIENT VISIT EST Diagnosis: EDEMA[ICD9: 782.3] Diagnosis: HYPERTENSION[ICD9: 401.9] Diagnosis: ALLERGIC RHINITIS[ICD9: 477.9] Diagnosis: ARTHRALGIA-MULTIPLE SITES[ICD9: 719.49] María Elena APPIAH [facility] CPT-4: 10606 01/24/2012 ([id number]) OFFICE/OUTPATIENT VISIT EST Diagnosis: SPASM OF MUSCLE[ICD9: 728.85] Diagnosis: Thoracic back pain[ICD9: 724.1] Diagnosis: Cervical pain[ICD9: 723.1] María Elena PANDYA [facility] CPT-4: 29683 01/10/2012 OFFICE/OUTPATIENT VISIT EST Diagnosis: PAIN, LOWER BACK[ICD9: 724.2] Diagnosis: LUMBAR DISC DISPLACEMENT[ICD9: 722.10] María Elena Td [facility] CPT-4: 14237 12/11/2011 OFFICE/OUTPATIENT VISIT EST Diagnosis: MIGRAINE NOS/NOT INTRCBL[ICD9: 346.90] Diagnosis: SINUSITIS, ACUTE[ICD9: 461.9] María Elena [facility] CPT-4: 09392 11/09/2011 OFFICE/OUTPATIENT VISIT EST Diagnosis: MIGRAINE NOS/NOT INTRCBL[ICD9: 346.90] Diagnosis: LYMPHADENOPATHY[ICD9: 785.6] [facility]ía [facility]: 14491 09/13/2011 OFFICE/OUTPATIENT VISIT EST Diagnosis: MALAISE AND FATIGUE[ICD9: 780.79] Diagnosis: ARTHRALGIA-MULTIPLE SITES[ICD9: 719.49] María Elena Waymindimaryjane [facility] CPT-4: 83170 08/31/2011 OFFICE/OUTPATIENT VISIT EST Diagnosis: SINUSITIS, ACUTE[ICD9: 461.9] María Elena [facility] CPT-4: 13053 07/20/2011 OFFICE/OUTPATIENT VISIT EST Diagnosis: HYPERTENSION[ICD9: 401.9] Diagnosis: PAIN, LOWER BACK[ICD9: 724.2] Diagnosis: SPASM OF MUSCLE[ICD9: 728.85] María Elena [facility] CPT-4: 16529 07/06/2011 OFFICE/OUTPATIENT VISIT EST Diagnosis: MIGRAINE NOS/NOT INTRCBL[ICD9: 346.90] Diagnosis: HYPERTENSION[ICD9: 401.9] María Elena WAY NDER DO [facility] CPT-4: 02364 05/22/2011 OFFICE/OUTPATIENT VISIT EST Diagnosis: SINUSITIS, ACUTE[ICD9: 461.9] Diagnosis: MIGRAINE NOS/NOT INTRCBL[ICD9: 346.90] Diagnosis: Dehydration[ICD9: 276.51] Diagnosis: Vomiting[ICD9: 787.03] María Elena Seamusmindimaryjane ELLISMARÍA ELENA Fabiola ORTAE R DO [facility] CPT-4: 34367 05/09/2011 ([id number]) OFFICE/OUTPATIENT VISIT EST María Elena ISAAC UJARED S. OR[facility] CPT-4: 25689 02/14/2011 ([id number]) OFFICE/OUTPATIENT VISIT EST María Elena ISAAC UJARED S. ORENDER [facility] CPT-4: 55436 02/03/2011 ([id number]) OFFICE/OUTPATIENT VISIT EST María Elena ISAAC UELINE SJj [facility] CPT-4: 42543 01/31/2011 ([id number]) OFFICE/OUTPATIENT VISIT EST María Elena ISAAC UELINE S. ORENDER [facility] CPT-4: 89824 01/25/2011 ([id number]) OFFICE/OUTPATIENT VISIT EST María Elena ISAAC UELINE SJj [facility] CPT-4: 21857 01/18/2011 ([id number]) OFFICE/OUTPATIENT VISIT EST María Elena ISAAC UELINE S. ORENDER [facility] CPT-4: 63053 11/29/2010 ([id number]) OFFICE/OUTPATIENT VISIT, EST María Elena Seamusmindimaryjane BRAUNAGEL S. ORENDER DO [facility] CPT-4: 36835 10/10/2010 ([id number]) OFFICE/OUTPATIENT VISIT, EST María Elena Seamusmindimaryjane BRAUNGAEL S. ORENDER DO [facility] CPT-4: 26007 06/07/2010 ([id number]) OFFICE/OUTPATIENT VISIT, EST María Elena Seamusmindimaryjane [facility] CPT-4: 97151 04/27/2010 ([id number]) OFFICE/OUTPATIENT VISIT, EST María Elena [facility] CPT-4: 18258 04/05/2010 ([id number]) OFFICE/OUTPATIENT VISIT, EST María Elena [facility] CPT-4: 28846 03/09/2010 ([id number]) OFFICE/OUTPATIENT VISIT, EST María Elena [facility] CPT-4: 34936 03/03/2010 ([id number]) OFFICE/OUTPATIENT VISIT, EST María Elena Hicks [facility] CPT-4: 03647 01/17/2010 ([id number]) PREV VISIT, EST, AGE 40-64 María Elena [facility] CPT-4: 90051 12/27/2009 Plan of Care Planned Activity Notes Codes Status Date Appointment: María Elena [facility] [phone] [facility] [facility] 11/26/2019 Visit Diagnosis Plan: Type 2 diabetes mellitus with hy perglycemia Discussion: Januvia 100mg daily Glimepride 2mg po BID Accuchecks BID Call in 2 weeks with BS readings Get formulary book ICD-9 : 250.02 ICD-10 : E11.65 11/20/2019 Appointment: María Elena [facility] [phone] [facility] [place] FOLLOW UP 11/20/2019 Patient Education: glimepiride- [employer] Coupon [id number] Completed 11/20/2019 Patient Education: Januvia- [employer] Coupon [id number] Completed 11/20/2019 Visit Diagnosis Plan: Ingrowing nail [...] ICD-10 : E11.65 10/07/2019 Appointment: Kathleen Zuniga [address] [place], [place] [address] [place] OFFICE SURGERY 10/07/2019 Visit Diagnosis Plan: [...] 09/30/2019 Appointment: María Elena [facility]el[facility] [phone] [facility] [facility] UP 09/30/2019 Patient Education: Premarin- [employer] Coupon [id number] https://[email or web address] [employer]/samplemd/resources/getResource/61/14296v01-s545-3wco-w2 Completed 09/30/2019 Appointment: María Elena Appiah WPtel: [address] [place], [place] [phone] [place] LAB 09/29/2019 Appointment: María Elena Appiah WPtel: [address] [place], [place] [phone] [place] Won't have the new insurance till [...] W06.XXXS 05/28/2019 Appointment: María Elena Appiah WPtel: [address] [place], [place] [phone] [place] FOLLOW UP 05/28/2019 Appointment: María Elena Appiah WPtel: [address] [place] [address] US BP CHECK 05/19/2019 Visit Diagnosis Plan: [...] Z79.890 01/22/2019 Appointment: María Elena Appiah WPtel: [address] [place], [place] [phone] [place] FOLLOW UP 01/22/2019 Patient Education: estradiol- [employer] Coupon [id number] https://www.[employer]/sampleGOGETMi / ?.??/resources/getResource/61/[email or web address] Completed 01/22/2019 Appointment: María Elena Appiah WPtel: [address] [place], [place] [address] [place] CANCELED 01/20/2019 Appointment: María Elena Appiah WPtel: [address] [place] [address] [place] LM NO SHOW 01/06/2019 Appointment: María Elena Appiah WPtel: [address] [place], [place] [phone] [place] CANCELED 10/17/2018 Appointment: María Elena Appiah WPtel: [address] [place], [place] [address] US BP CHECK 10/09/2018 Visit Diagnosis Plan: [...] I10 09/30/2018 Appointment: María Elena Appiah WPtel: [address] [place], [place] [phone] [place] FOLLOW UP 09/30/2018 Visit Diagnosis Plan: [...] : F51.01 08/27/2018 Appointment: María Elena Appiahtel: [address] [place] [address] ACUTE ILLNESS 08/27/2018 Appointment: María Elena Appiah WPtel: [address] [place] [address] [place] Patient stated she went out to [...] prn. Tyle... 08/09/2018 Appointment: María Elena Appiahtel: [address] [place] [address] ACUTE ILLNESS 08/09/2018 Appointment: María Elena Appiahtel: [address] [place] [address] NO SHOW 08/08/2018 Visit Diagnosis Plan: Anxiety [...] B35.4 07/22/2018 Appointment: María Elena Appiah WPtel: [address] [place], [place] [phone] ACUTE ILLNESS 07/22/2018 Appointment: María Elena Appiah WPtel: [phone] [facility] [place] INJECTION 06/19/2018 Patient Education: Patient Medication [...] ICD-10 : L03.031 06/17/2018 Appointment: Kathleen Zuniga [address] [place] [address] ACUTE ILLNESS 06/17/2018 Patient Education: Patient Medication [...] ICD-10 : B02.9 05/16/2018 Appointment: Kathleen Zuniga [address] [place] [address] ACUTE ILLNESS 05/16/2018 Patient Education: Patient Medication [...] : L03.115 03/20/2018 Appointment: Kathleen Zuniga [address] [id number] FOLLOW UP 03/20/2018 Patient Education: Patient Medication [...] ICD-10 : L03.115 03/18/2018 Appointment: Kathleen Zuniga [address] [place], [place] [address] FOLLOW UP 03/18/2018 Patient Education: Patient Medication [...] ICD-10 : L03.115 03/15/2018 Appointment: Kathleen Zuniga [address] [place], [place] [address] ACUTE ILLNESS 03/15/2018 Patient Education: Patient Medication [...] : J01.90 02/11/2018 Appointment: Kathleen Zuniga [address] [facility] ACUTE ILLNESS 02/11/2018 Patient Education: Patient Medication Summary Completed 02/11/2018 Appointment: María Elena Appiah WPtel: [phone] [place] [place] INJECTION 02/01/2018 Patient Education: Patient Medication [...] : M51.16 01/30/2018 Appointment: Kathleen Zuniga [address] [email or web address] ACUTE ILLNESS 01/30/2018 Patient Education: Patient Medication [...] E11.65 12/18/2017 Appointment: María Elena Appiah WPtel: [address] [place] [address] Annual Well Visit 12/18/2017 Patient Education: Patient Medication Summary Completed 12/18/2017 Care Plan: Referral Order SNOMED-CT : [id number] Pending 12/18/2017 Appointment: María Elena Appiah WPtel: [phone] [address] [place] INJECTION 12/10/2017 Patient Education: Patient Medication [...] : L03.031 12/07/2017 Appointment: Kathleen Zuniga [address] [place] [address] ACUTE ILLNESS 12/07/2017 Patient Education: Patient Medication [...] : J01.00 10/08/2017 Appointment: Kathleen Zuniga [address] [facility] ACUTE ILLNESS 10/08/2017 Patient Education: Patient Medication Summary Completed 10/08/2017 Appointment: María Elena Appiah WPtel: [phone] [facility] [place] INJECTION 09/21/2017 Patient Education: Patient [...] : R06.83 09/20/2017 Appointment: Kathleen Zuniga [address] [facility] ACUTE ILLNESS 09/20/2017 Patient Education: [...] ICD-10 : L60.0 08/29/2017 Appointment: Kathleen Zuniga [address] [place] [address] OFFICE SURGERY 08/29/2017 Patient Education: Patient Medication Summary Completed 08/29/2017 Visit Diagnosis Plan: Actinic keratosis Discussion: Cr yotherapy as above ICD-9 : 702.0 ICD-10 : L57.0 08/01/2017 Appointment: María Elena Appiah WPtel: [address] [place] [address] OFFICE SURGERY 08/01/2017 Patient Education: Patient Medication Summary Completed 08/01/2017 Appointment: María Elena Appiah WPtel: [address] [place] [address] PATIENT THOUGHT APPOINTMENT WAS TOMORROW 07/26/17 CALLED 15 MINUTES BEFORE APPT TO SAY SHE DIDN'T HAVE ANYONE TO COVER HER BUSINESS AND WOULD NOT MAKE IT NO SHOW 07/25/2017 Visit Diagnosis Plan: Cellulitis of left toe Discussio n: Clindamycin and notify if worsening or persistis ICD-9 : 681.10 ICD-10 : L03.032 07/19/2017 Appointment: María Elena Appiah WPtel: [address] [place] [address] MEDICATION REVIEW 07/19/2017 Patient Education: Patient Medication Summary Completed 07/19/2017 Appointment: María Elena Appiah WPtel: [address] [place], [place] [address] [place] CANCELED 07/04/2017 Visit Diagnosis Plan: Generalized hyperhidrosis Discus ian: CBC, CMP, TSH, free T4 ordered to assess. will review labs. ICD-9 : 780.8 ICD-10 : R61 06/27/2017 Visit Diagnosis Plan: Chronic sinusitis, unspecified D iscussion: Referral sent to dr. albarado in [place] per patient request. patient has been treated multiple times for sinus infections with no recovery. patient was seen by dr sanchez in the past with no interventions. patient has deviated septum which may be affecting her sinuses. 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, including hip Discussion: Shave removal of above lesio n--sent to pathology ICD-9 : 216.7 ICD-10 : D23.72 01/24/2017 Appointment: María Elena Appiah WPtel: [address] [place], [place] [id number] 01/23 confirmed ~sl OFFICE SURGERY 01/24/2017 Patient Education: Patient Medication Summary Completed 01/24/2017 Appointment: Loan Sánchez [address] [place], [place] [phone] 01/09 rescheduled~sl RESCHEDULED 01/15/2017 Visit Diagnosis Plan: [...] L81.4 12/13/2016 Appointment: María Elena Appiah WPtel: [address] [place], [place] [phone] 12/12 confirmed ~ MEDICATION REVIEW 12/13/2016 Patient Education: Patient Medication Summary Completed 12/13/2016 Appointment: María Elena Appiah WPtel: [address] [place], [place] [phone] [place] rescheduled for 12/13/16 at 11am RESCHEDULED 0 12/06/2016 Appointment: María Elena Appiah WPtel: [address] [place], [place] [phone] [place] CANCELED 11/23/2016 Patient Education: Patient Medication [...] F51.01 11/01/2016 Appointment: María Elena Appiah WPtel: [address] [place], [place] [id number] [place] 10/31 lm `sl 11/01 lm`sl MEDICATION REVIEW 017 Patient Education: Patient Medication Summary Completed 11/01/2016 Referral: Canelo Overton WPtel: [address] [id number] [place] Referral Initiated 10/30/2016 Visit Diagnosis Plan: [...] 10/17/2016 Appointment: María Elena Appiah WPtel: [address] [place], [place] [phone] [place] 10/16 confirmed ~sl PAP 10/17/2016 Patient Education: Patient Medication Summary Completed 10/17/2016 Care Plan: MAMMOGRAM SCREENING LOINC : 2 6347-5 Pending 10/17/2016 Visit Diagnosis Plan: Other seasonal allergic rhinitis Discussion: Decadron/Garamycin Nasal [place] Mix Too soon for steroid Retry zyrtec 10mg daily ICD-9 : 477.9 ICD-10 : J30.2 10/10/2016 Appointment: María Elena Appiah WPtel: [address] [place], [place] [phone] [place] FOLLOW UP 10/10/2016 Patient Education: Patient Medication Summary Completed 10/10/2016 Appointment: María Elena Appiah WPtel: [address] [place], [place] [phone] 10/02 reschedule `sl RESCHEDULED 10/02/2016 Visit Plan: See surgery for removal of n ew left arm lesion and right foot lesion Lyrica to use next month for left arm paresthesias Continue current meds Discussed sunscreen/sunblock combo 09/19/2016 Appointment: María Elena Appiah WPtel: [address] [place], [place] [phone] 09/18 confirmed ~ FOLLOW UP 09/19/2016 Patient Education: Patient Medication Summary Completed 09/19/2016 Patient Education: Patient Medication Summary Completed 09/18/2016 Care Plan: MAMMOGRAM BOTH BREASTS LOINC : 76621-4 Pending 09/18/2016 Visit Plan: Discussed that needs [...] 08/24/2016 Appointment: María Elena Appiah WPtel: [address] [place] [address] ACUTE ILLNESS 08/24/2016 Patient Education: Patient Medication Summary Completed 08/24/2016 Patient Education: Patient Medication Summary Completed 08/23/2016 Care Plan: MAMMOGRAM SCREENING LOINC : 2 6347-5 Pending 08/23/2016 Visit Plan: Finish doxycycline Add Breo 100/25 1 p BID for 2 weeks If not improving within next 2 days will get CXR 08/16/2016 Appointment: María Elena Appiah WPtel: [address] [place], [place] [phone] ACUTE ILLNESS 08/16/2016 Patient Education: Patient Medication Summary Completed 08/16/2016 Visit Plan: Supportive care. Rest, Fluid s, Tylenol/Motrin prn fever or bodyaches. Notify if worsening symptoms. Doxycyline and Prednisone 08/10/2016 Appointment: María Elena Appiah WPtel: [address] 08/09 lm`sl....confirmed-sp FOLLOW UP 09/2015 Patient Education: Patient Medication Summary Completed 08/10/2016 Visit Plan: Saline nasal flushes prn. Ty lenol/Motrin prn headache. Notify if persists/symptoms worsening. Dexamethasone 8mg IM today May use coricedan and mucinex 08/02/2016 Appointment: María Elena Appiah WPtel: [address] [place] [address] ACUTE ILLNESS 08/02/2016 Patient Education: Patient Medication Summary Completed 08/02/2016 Visit Plan: Cryotherapy as above and lef t forearm lesion removal as above with 5-0 punch biopsy and sent to path Return in 10 days for suture removal 08/01/2016 Appointment: María Elena Appiah WPtel: [address] [place] [address] 07/31 confirmed`~sl OFFICE SURGERY 08/01/2016 Patient Education: Patient Medication Summary Completed 08/01/2016 Visit Plan: Stop clindamycin Check CBC, CMP, ESR now/STAT 07/27/2016 Appointment: María Elena Appiah WPtel: [address] [place] [address] ACUTE ILLNESS 07/27/2016 Patient Education: Patient Medication Summary Completed 07/27/2016 Visit Plan: Update lab and check ABIs to start with Will likely need cardiology evaluation to rule out PVD Clindamycin for 10 days Daily yogurt or probiotic Will return for removal of left arm lesions 07/20/2016 Appointment: María Elena Appiah WPtel: [address] [place] [address] ACUTE ILLNESS 07/20/2016 Patient Education: Patient Medication Summary Completed 07/20/2016 Patient Education: Patient Medication Summary Completed 07/20/2016 Care Plan: MAMMOGRAM BOTH BREASTS LOINC : 20166-8 Pending 07/20/2016 Care Plan: US EXAM CHEST LOINC : 03449-5 Pending 07/20/2016 Visit Plan: Wound culture collected from left great toe Appearance is somewhat staph like Rx as above Wound cleanser and skin care reviewed May need to add oral antibiotic if sores do not heal or continue to reoccur 07/06/2016 Appointment: Loan Sánchez [address] [place] [place] [address] ACUTE ILLNESS 07/06/2016 Patient Education: Patient Medication Summary Completed 07/06/2016 Appointment: María Elena Appiah WPtel: [address] [place] [address] [place] INJECTION 05/25/2016 Patient Education: Patient Medication Summary Completed 05/25/2016 Visit Plan: Saline nasal flushes prn. Ty lenol/Motrin prn headache. Notify if persists/symptoms worsening. Dexamethasone and Rocephin given 04/26/2016 Appointment: María Elena Appiah WPtel: [address] [place] [address] ACUTE ILLNESS 04/26/2016 Patient Education: Patient Medication Summary Completed 04/26/2016 Visit Plan: Check CBC, CMP, TSH, FreeT4, HbA1C, estradiol, lipids in AM 03/02/2016 Appointment: María Elena Appiah WPtel: [address] [place] [address] 03/01 lm~sl ACUTE ILLNESS 03/02/2016 Patient Education: Patient Medication Summary Completed 03/02/2016 Visit Plan: Exam is nearly normal Needs to be taking daily antihistamine Would prefer to use oral steroids instead of shot but patient insist that oral steroids cause horrible headaches for her Will given kenalog IM instead 02/09/2016 Appointment: Loan Sánchez [address] [place] [place] [address] ACUTE ILLNESS 02/09/2016 Patient Education: Patient Medication Summary Completed 02/09/2016 Visit Plan: Culture urine Macrobid DC xa nax Trial of Ativan 1mg q HS 01/24/2016 Appointment: María Elena Appiah WPtel: [address] [place] [address] ACUTE ILLNESS 01/24/2016 Patient Education: Patient Medication Summary Completed 01/24/2016 Visit Plan: No steroid or rocephin injec tion warranted Can have oral prednisone Continue current home regimen Needs to follow up with Dr Sanchez if problems persist 12/23/2015 Appointment: Loan Sánchez [address] [place] [address] ACUTE ILLNESS 12/23/2015 Patient Education: Patient Medication Summary Completed 12/23/2015 Visit Plan: Saline nasal flushes prn. Ty lenol/Motrin prn headache. Notify if persists/symptoms worsening. Kenalog 40mg IM today 12/08/2015 Appointment: María Elena Appiah WPtel: [address] [place] [address] 12/06 confirmed~ ACUTE ILLNESS 12/08/2015 Patient Education: Patient Medication Summary Completed 12/08/2015 Appointment: María Elena Appiah WPtel: [address] [place] [address] ACUTE ILLNESS 11/18/2015 Patient Education: Patient Medication Summary Completed 10/11/2015 Appointment: María Elena Appiah WPtel: [address] [place], [place] [phone] [place] INJECTION 10/07/2015 Patient Education: Patient Medication Summary Completed 10/07/2015 Visit Plan: Check renal arterial doppler s and ECHO Change amlodopine to lotrel 5/20mg q HS Will need stress test as well Check CMP, uric acid, ESR 10/06/2015 Appointment: María Elena Appiah WPtel: [address] [place] [address] ACUTE ILLNESS 10/06/2015 Patient Education: Patient Medication Summary Completed 10/06/2015 Patient Education: [facility] [place] - Saving [employer] - Amlodipine Besylate - 18-64 - Dynamic Portal ID Completed 10/06/2015 Appointment: María Elena Appiah WPtel: [address] [place] [address] FOLLOW UP 09/22/2015 Visit Plan: Cephalexin 500 mg PO bid Mery ly topical Mupirocin to lesions on left lateral neck and face Follow-up in one week. Sooner if symptoms worsen 09/14/2015 Appointment: June Flores WPtel: [address] [place], [place] [phone] [[email or web address]] ACUTE ILLNESS 09/14/2015 Patient Education: Patient Medication Summary Completed 09/14/2015 Visit Plan: Change bystolic to bedtime d osing and amlodopine to morning dosing Cryotherapy as above to AKs 09/07/2015 Appointment: María Elena Appiah WPtel: [address] [place] [address] 09/06 appointment made and confirmed ~sl FOLLOW UP 09/07/2015 Patient Education: Patient Medication Summary Completed 09/07/2015 Visit Plan: Increase bystolic back to 20 mg daily but will split and take 10mg in AM and 10mg in PM Stress Reducers 08/18/2015 Appointment: María Elena Appiah WPtel: [address] [place] [address] 08/17/15 appt confirmed cn ACUTE ILLNESS 08/18 Patient Education: Patient Medication Summary Completed 08/18/2015 Appointment: María Elena Appiah WPtel: [address] [place] [address] BP CHECK 07/07/2015 Patient Education: Patient Medication Summary Completed 07/07/2015 Appointment: María Elena Appiah WPtel: [address] [place] [address] BP CHECK 06/24/2015 Patient Education: Patient Medication Summary Completed 06/24/2015 Appointment: María Elena Appiah WPtel: [address] [place], [place] [phone] [place] BP CHECK 06/21/2015 Patient Education: Patient Medication Summary Completed 06/21/2015 Visit Plan: Lab discussed Continue suhail nt meds and lifestyle modification Recheck lab in 6mos 06/16/2015 Appointment: María Elena Appiah WPtel: [address] [place], [place] [phone] 06/15 confirmed FOLLOW UP 06/16/2015 Patient Education: Patient Medication Summary Completed 06/16/2015 Patient Education: Patient Medication Summary Completed 06/15/2015 Visit Plan: Increase cymbalta to 60mg q HS Keep clonidine at current dose Recheck 2weeks Change xanax to klonopin 06/02/2015 Appointment: María Elena Appiah WPtel: [address] [place] [address] 06/02 FOLLOW UP 06/02/2015 Patient Education: Patient Medication Summary Completed 06/02/2015 Appointment: María Elena Appiah WPtel: [address] [place] [address] ACUTE ILLNESS 05/24/2015 Visit Plan: Increase clonidine to 0.2mg q HS Add cymbalta 30mg q HS Recheck 2weeks Stress Reducers Check fasting lab Discussed sleep study 05/20/2015 Appointment: María Elena Appiah WPtel: [address] [place] [address] ACUTE ILLNESS 05/20/2015 Patient Education: Patient Medication Summary Completed 05/20/2015 Patient Education: [facility] [place] - [employer]aving [employer] - Cymbalta - 18-64 - Dynamic Portal ID Completed 05/20/2015 Appointment: María Elena Appiah WPtel: [address] [place] [address] BP CHECK 05/19/2015 Patient Education: Patient Medication Summary Completed 05/19/2015 Visit Plan: Topical Bactroban alternatin g with topical betamethasone Recheck 2weeks 05/10/2015 Appointment: María Elena Appiah WPtel: [address] [place] [address] 05/07 vm cn...05/07 appt confirmed OFFICE SURGER Y 05/10/2015 Patient Education: Patient Medication Summary Completed 05/10/2015 Ref[facility]: [facility] Chandler [facility] [address] Referral Initiated 05/04/2015 Visit Plan: Saline nasal flushes prn. Ty lenol/Motrin prn headache. Notify if persists/symptoms worsening. Depomedrol 40mg IM today 03/16/2015 Appointment: María Elena Appiah WPtel: [address] [place] [address] ACUTE ILLNESS 03/16/2015 Patient Education: Patient Medication Summary Completed 03/16/2015 Appointment: María Elena Appiah WPtel: [address] [place] [address] ER Follow UP 03/09/2015 Visit Plan: Cryotherapy to lesions as ab ove 10/27/2014 Appointment: María Elena Appiah WPtel: [address] [place] [address] OFFICE SURGERY 10/27/2014 Patient Education: Patient Medication Summary Completed 10/27/2014 Appointment: June Flores WPtel: [address] [place] [address] ACUTE ILLNESS 09/11/2014 Patient Education: Patient Medication Summary Completed 09/11/2014 Visit Plan: Lab discussed Lipitor 10mg d aily Coenzyme Q-10 400mg daily Vitamin D3 5000u daily Recheck lipids with LFTs in 3mos then fwup 08/31/2014 Appointment: María Elena Appiah WPtel: [address] [place] [address] 08/28 voicemail FOLLOW UP 08/31/2014 Patient Education: Patient Medication Summary Completed 08/31/2014 Appointment: María Elena Appiah WPtel: [address] [place], [place] [phone] [place] LAB 08/27/2014 Appointment: María Elena Appiah WPtel: [address] [place] [address] LAB 08/27/2014 Patient Education: Patient Medication Summary Completed 08/27/2014 Appointment: María Elena Appiah WPtel: [address] [place] [address] ACUTE ILLNESS 07/23/2014 Appointment: María Elena Appiah WPtel: [address] [place], [place] [phone] [[email or web address]] ACUTE ILLNESS 07/21/2014 Patient Education: Patient Medication Summary Completed 07/21/2014 Visit Plan: Kenalog 40mg IM today Contin ue narendra and singulair Add Flonase 07/15/2014 Appointment: María Elena Appiah WPtel: [address] [place], [place] [phone] ACUTE ILLNESS 07/15/2014 Appointment: María Elena Appiah WPtel: [address] [place] [address] ACUTE ILLNESS 07/15/2014 Patient Education: Patient Medication Summary Completed 07/15/2014 Visit Plan: Will do metolazone 2.5mg prn with 6 potassium and see if causes as severe cramping Trial of of seroquel XR 50mg q PM with evening meal and let us know how works 05/18/2014 Appointment: María Elena Appiah WPtel: [address] [place], [place] [phone] [[email or web address]] 05/15 left message FOLLOW UP 05/18/2014 Patient Education: Patient Medication Summary Completed 05/18/2014 Appointment: María Elena Appiah WPtel: [address] [place], [place] [phone] [place] LAB 05/14/2014 Patient Education: Patient Medication Summary Completed 05/14/2014 Appointment: María Elena Appiah WPtel: [address] [place], [place] [phone] [place] INJECTION 04/22/2014 Visit Plan: Rocephin and Kenalog today a nd finish abx given from urgent care 04/21/2014 Appointment: María Elena Appiah WPtel: [address] [place], [place] [phone] [place] INJECTION 04/21/2014 Patient Education: Patient Medication Summary Completed 04/21/2014 Appointment: June Flores WPtel: [address] [place], [place] [phone] [[email or web address]] ACUTE ILLNESS 03/04/2014 Patient Education: Patient Medication Summary Completed 03/04/2014 Appointment: María Elena Appiah WPtel: [address] [place], [place] [phone] [place] INJECTION 02/27/2014 Patient Education: Patient Medication Summary Completed 02/27/2014 Visit Plan: Cryotherapy as above to all lesions Patient wants to try no meds for insomnia for a while and see how goes 01/13/2014 Appointment: María Elena Appiah WPtel: [address] [place] [address] OFFICE SURGERY 01/13/2014 Patient Education: Patient Medication Summary Completed 01/13/2014 Visit Plan: Stop Melatonin Stop Soma Tri al of trazadone 75mg q HS See ENT for possible tubes as has had chronic ETD and serous otitis media with numerous steroids 12/24/2013 Appointment: María Elena Appiah WPtel: [address] [place] [address] ACUTE ILLNESS 12/24/2013 Patient Education: Patient Medication Summary Completed 12/24/2013 Visit Plan: Saline nasal flushes prn. Ty lenol/Motrin prn headache. Notify if persists/symptoms worsening. 11/12/2013 Appointment: María Elena Appiah WPtel: [address] [place] [address] ACUTE ILLNESS 11/12/2013 Patient Education: Patient Medication Summary Completed 11/12/2013 Appointment: María Elena Appiah WPtel: [address] [place] [address] ACUTE ILLNESS 10/21/2013 Patient Education: Patient Medication Summary Completed 10/21/2013 Visit Plan: Sleep hygiene and sleep rout ine Melatonin 10mg q HS Support stockings and observe 09/22/2013 Appointment: María Elena Appiah WPtel: [address] [place] [address] ACUTE ILLNESS 09/22/2013 Patient Education: Patient Medication Summary Completed 09/22/2013 Appointment: June Flores WPtel: [address] [place] [address] ACUTE ILLNESS 08/27/2013 Patient Education: Patient Medication Summary Completed 08/27/2013 Visit Plan: Proceed with CT scan of head /neck Proceed with occipital nerve injections Butrans 20mcg patch weekly until can get into see Dr. Mcdonough for injections 08/04/2013 Appointment: María Elena Appiah WPtel: [address] [place] [address] FOLLOW UP 08/04/2013 Patient Education: Patient Medication Summary Completed 08/04/2013 Visit Plan: OMT done Daily neck stretche s, moist heat Increase Celebrex to 200mg BID Add flexeril 07/23/2013 Appointment: María Elena Appiah WPtel: [address] [place] [address] 07/22 voicemail FOLLOW UP 07/23/2013 Patient Education: Patient Medication Summary Completed 07/23/2013 Appointment: María Elena Appiah WPtel: [address] [place] [address] ACUTE ILLNESS 06/23/2013 Patient Education: Patient Medication Summary Completed 06/23/2013 Appointment: María Elena Appiah WPtel: [address] [place] [address] ACUTE ILLNESS 05/26/2013 Patient Education: Patient Medication Summary Completed 05/26/2013 Visit Plan: Decrease clonidine to 0.1mg TID If BP remains stable consider decreasing amlodopine Prednisone for 5 days BP check in 1mo 04/16/2013 Appointment: María Elena Appiah WPtel: [address] [place] [address] 04/14 pt called and confirmed appt FOLLOW UP 04/16/2013 Patient Education: Patient Medication Summary Completed 04/16/2013 Appointment: María Elena Appiah WPtel: [address] [place] [address] ACUTE ILLNESS 03/05/2013 Patient Education: Patient Medication Summary Completed 03/05/2013 Visit Plan: Pt has MARIA ELENA on with Dr. Mcdonough Continue Butrans patch Refill Hydrocodone early tomorrow 12/23/2012 Appointment: María Elena Appiah WPtel: [address] [place] [address] FOLLOW UP 12/23/2012 Patient Education: Patient Medication Summary Completed 12/23/2012 Appointment: Lashawn Eckert WPtel: [address] [place] [address] ACUTE ILLNESS 12/16/2012 Patient Education: Patient Medication Summary Completed 12/16/2012 Visit Plan: Proceed with updated MRI of LS spine Continue gabapentin and add soma and diclofenac Will likely need to go for another epidural 12/09/2012 Appointment: María Elena Appiah WPtel: [address] [place] [address] ACUTE ILLNESS 12/09/2012 Patient Education: Patient Medication Summary Completed 12/09/2012 Visit Plan: Injection as above Finish me drol dose pack Chiropracter this afternoon 12/04/2012 Appointment: María Elena Appiah WPtel: [address] [place] [address] ACUTE ILLNESS 12/04/2012 Patient Education: Patient Medication Summary Completed 12/04/2012 Appointment: Mary Tillman WPtel: [address] [place] [address] FOLLOW UP 11/22/2012 Patient Education: Patient Medication Summary Completed 11/22/2012 Appointment: María Elena Appiah WPtel: [address] [place] [address] ACUTE ILLNESS 11/21/2012 Patient Education: Patient Medication Summary Completed 11/21/2012 Appointment: María Elena Appiah WPtel: [address] [place] [address] BP CHECK 11/07/2012 Patient Education: Patient Medication Summary Completed 11/07/2012 Visit Plan: reports extra clonidine and extra amlodipine and extra alprazalam. extra Ketolorac and promethazine last night. Bystolic 10 mg QAM and will continue all other blood pressure meds. Pt. encouraged to rest and hydrate. Discussed stroke and DE symptoms. Pt. instructed to seek ER eval if symptoms worsen or headache persists. Pt. agrees to ER eval/EMS transport if symptoms worsen. BP re-check. 10/29/2012 Appointment: Lashawn Eckert WPtel: [address] [place] [address] ACUTE ILLNESS 10/29/2012 Patient Education: Patient Medication Summary Completed 10/29/2012 Appointment: María Elena Appiah WPtel: [address] [place] [address] ACUTE ILLNESS 10/14/2012 Patient Education: Patient Medication Summary Completed 10/14/2012 Appointment: María Elena Appiah WPtel: [address] [place] [address] 09/27/2012 Patient Education: Patient Medication Summary Completed 09/27/2012 Appointment: María Elena Appiah WPtel: [address] [place] [address] ACUTE ILLNESS 09/25/2012 Patient Education: Patient Medication Summary Completed 09/25/2012 Appointment: María Elena Appiah WPtel: [address] [place] [address] BP CHECK 09/24/2012 Appointment: María Elena Appiah WPtel: [address] [place] [address] ACUTE ILLNESS 08/29/2012 Patient Education: Patient Medication Summary Completed 08/29/2012 Visit Plan: Cryotherapy as above See Karlos m for right ear lesion--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 ACUTE ILLNESS 05/06/2012 Patient Education: Patient Medication Summary Completed 05/06/2012 Visit Plan: Pt wants to hold on any furt her sleep medications 04/03/2012 Appointment: María Elena Appiah WPtel: [address] [place] [address] FOLLOW UP 04/03/2012 Patient Education: Patient Medication Summary Completed 04/03/2012 Appointment: María Elena Appiah WPtel: [address] [place] [address] FOLLOW UP 03/19/2012 Patient Education: Patient Medication Summary Completed 03/19/2012 Appointment: María Elena Appiah WPtel: [address] [place] [address] BP CHECK 02/22/2012 Patient Education: Patient Medication Summary Completed 02/22/2012 Appointment: María Elena Appiah WPtel: [address] [place] [address] BP CHECK 02/21/2012 Patient Education: Patient Medication Summary Completed 02/21/2012 Visit Plan: Doxycycline and bactroban fo r foot Supportive care on ankles and knees Add norvasc for BP 02/20/2012 Appointment: María Elena Appiah WPtel: [address] [place] [address] ER Follow UP 02/20/2012 Patient Education: Patient Medication Summary Completed 02/20/2012 Appointment: María Elena Appiah WPtel: [address] [place] [address] ACUTE ILLNESS 01/30/2012 Patient Education: Patient Medication Summary Completed 01/30/2012 Appointment: María Elena Appiah WPtel: [address] [place] [address] ACUTE ILLNESS 01/24/2012 Patient Education: Patient Medication Summary Completed 01/24/2012 Visit Plan: Daily back stretches, moist heat, Biofreeze prn OMT done 01/10/2012 Appointment: María Elena Appiah WPtel: [address] [place] [address] ACUTE ILLNESS 01/10/2012 Patient Education: Patient Medication Summary Completed 01/10/2012 Appointment: María Elena Appiah WPtel: [address] [place] [address] FOLLOW UP 12/11/2011 Patient Education: Patient Medication Summary Completed 12/11/2011 Appointment: María Elena Appiah WPtel: [address] [place] [address] ACUTE ILLNESS 11/09/2011 Patient Education: Patient Medication Summary Completed 11/09/2011 Appointment: María Elena Appiahtel: [address] [place] [address] ACUTE ILLNESS 09/13/2011 Patient Education: Patient Medication Summary Completed 09/13/2011 Visit Plan: Check CBC, TSH, Free T4, CMP , ESR, Vit D, B12 now Start Prednisone today 08/31/2011 Appointment: María Elena Appiah WPtel: [address] [place] [address] ACUTE ILLNESS 08/31/2011 Patient Education: Patient Medication Summary Completed 08/31/2011 Appointment: María Elena Appiah WPtel: [address] [place] [address] [place] INJECTION 07/20/2011 Patient Education: Patient Medication Summary Completed 07/20/2011 Visit Plan: Continue current meds Monite r BP Cont stretches from PT 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 07/06/2011 Appointment: María Elena Appiah WPtel: [address] [place], [place] [phone] [place] FOLLOW UP 07/06/2011 Patient Education: Patient Medication Summary Completed 07/06/2011 Appointment: María Elena Appiah WPtel: [address] [place] [address] [place] BP CHECK 06/06/2011 Patient Education: Patient Medication Summary Completed 06/06/2011 Visit Plan: Add Bystolic at 2.5mg QAM Ad d Robaxin 750mg 2 po q HS BP check in 2wks 05/22/2011 Appointment: María Elena Appiah WPtel: [address] [place] [address] FOLLOW UP 05/22/2011 Patient Education: Patient Medication Summary Completed 05/22/2011 Appointment: María Elena Appiah WPtel: [address] [place] [address] ER Follow UP 05/09/2011 Patient Education: Patient Medication Summary Completed 05/09/2011 Appointment: María Elena Appiah WPtel: [address] [place] [address] [place] FOLLOW UP 02/22/2011 Visit Plan: Rx written for Hydrocodone 1 0/325mg #240 See Ortho 02/14/2011 Appointment: María Elena Appiah WPtel: [address] [place] [address] OMT 02/14/2011 Patient Education: Patient Medication Summary [...] lab work. 02/03/2011 Appointment: Lashawn Eckert WPtel: [address] [place] [address] ACUTE ILLNESS 02/03/2011 Patient Education: Patient Medication Summary Completed 02/03/2011 Visit Plan: OMT done Cont daily stretche s 01/31/2011 Appointment: María Elena Appiah WPtel: [address] [place] [address] ACUTE ILLNESS 01/31/2011 Patient Education: Patient Medication Summary Completed 01/31/2011 Visit Plan: Continue pain meds OMT done Proceed with PT No work this summer01/25/2011 Appointment: María Elena Appiah WPtel: [address] [place] [address] ACUTE ILLNESS 01/25/2011 Patient Education: Patient Medication Summary Completed 01/25/2011 Visit Plan: Start PT Long discussion abo ut getting pain meds from only us and can only have max of 4grams of tylenol per day Change to Hydrocodone 10/325mg 1- 2 po TID prn pain--#180 called to Radha 01/18/2011 Appointment: María Elena Appiah WPtel: [address] [place] [address] FOLLOW UP 01/18/2011 Patient Education: Patient Medication Summary Completed 01/18/2011 Visit Plan: Daily back stretches, moist heat, Biofreeze prn 11/29/2010 Appointment: María Elena Appiah WPtel: [address] [place] [address] ER Follow UP 11/29/2010 Patient Education: Patient Medication Summary Completed 11/29/2010 Visit Plan: Saline nasal flushes prn. Ty lenol/Motrin prn headache. Notify if persists/symptoms worsening. Finish augmentin Add Medrol Dose Pack 10/10/2010 Appointment: María Elena Appiah WPtel: [address] [place], [place] [email or web address] ACUTE ILLNESS 10/10/2010 Patient Education: Patient Medication Summary Completed 10/10/2010 Visit Plan: Cryotherapy x3 to multiple l esions on both forearms 07/19/2010 Appointment: María Elena Appiah WPtel: [address] [place], [place] [phone] OFFICE SURGERY 07/19/2010 Patient Education: Patient Medication Summary Completed 07/19/2010 Appointment: María Elena Appiah WPtel: [address] [place], [place] [id number] BP CHECK 07/06/2010 Patient Education: Patient Medication Summary Completed 07/06/2010 Appointment: María Elena Appiah WPtel: [address] [place], [place] [phone] BP CHECK 06/30/2010 Patient Education: Patient Medication Summary Completed 06/30/2010 Appointment: María Elena Appiah WPtel: [address] [place], [place] [phone] BP CHECK 06/20/2010 Patient Education: Patient Medication Summary Completed 06/20/2010 Visit Plan: Change Diovan to Exforge 160 /5mg QD OMT done to thoracics BP check in 2wks 06/07/2010 Appointment: María Elena Appiah WPtel: [address] [place], [place] [phone] [place] FOLLOW UP 06/07/2010 Patient Education: Patient Medication Summary Completed 06/07/2010 Appointment: María Elena Appiah WPtel: [address] [place], [place] [phone] [place] BP CHECK 06/03/2010 Patient Education: Patient Medication Summary Completed 06/03/2010 Appointment: María Elena Appiah WPtel: [address] [place], [place] [phone] [place] BP CHECK 06/01/2010 Patient Education: Patient Medication Summary Completed 06/01/2010 Visit Plan: Irritated skin tags to left neck x2 excised at base with scissors and base cauterized 05/30/2010 Appointment: María Elena Appiahtel: [address] [place] [address] OFFICE SURGERY 05/30/2010 Patient Education: Patient Medication Summary Completed 05/30/2010 Visit Plan: Saline nasal flushes prn. Ty lenol/Motrin prn headache. Notify if persists/symptoms worsening. Restart Nasonex Has allergy testing set for May 25 04/27/2010 Appointment: María Elena Appiah WPtel: [address] [place] [address] ACUTE ILLNESS 04/27/2010 Patient Education: Patient Medication Summary Completed 04/27/2010 Visit Plan: Saline nasal flushes prn. Ty lenol/Motrin prn headache. Notify if persists/symptoms worsening. Omnaris BID plus injections 04/05/2010 Appointment: María Elena Appiah WPtel: [address] [place] [address] ACUTE ILLNESS 04/05/2010 Patient Education: Patient Medication Summary Completed 04/05/2010 Visit Plan: Saline nasal flushes prn. Ty lenol/Motrin prn headache. Notify if persists/symptoms worsening. 03/09/2010 Appointment: María Elena Appiahtel: [address] [place] [address] ACUTE ILLNESS 03/09/2010 Patient Education: Patient Medication Summary Completed 03/09/2010 Visit Plan: Cont Clonidine as is Cont Pr emarin Fwup with surgery as scheduled 03/03/2010 Appointment: María Elena Appiahtel: [address] [place] [address] FOLLOW UP 03/03/2010 Patient Education: Patient Medication Summary Completed 03/03/2010 Visit Plan: Check Pelvic US now Dukee tacho Sal C vs Hysterectomy 01/17/2010 Appointment: María Elena Appiah WPtel: [address] [place], [place] [phone] ACUTE ILLNESS 01/17/2010 Patient Education: Patient Medication Summary Completed 01/17/2010 Visit Plan: Check fasting lab and schedu le Mammogram 2gm Na Diet Trial of Ambien 10mg qhs Fwup pending lab results 12/27/2009 App[facility]ment: [facility] [address] [id number] [place] ESTABLISHED PATIENT 12/27/2009 Patient Education: Patient Medication Summary Completed 12/27/2009 Referral: Canelo Overton WPtel: [address] [id number] [place] Referral Initiated Referral: Philipp Flores WPtel: [address] [id number] [place] Referral Appointment Requested Instructions Comment . [...] to rest and hydrate. Discussed stroke and DE symptoms. Pt. instructed to seek ER eval [...]
--- OUTSIDE RECORDS SUMMARY | 2020-03-13 05:22 | XMS REPORT | CCD ---
Author Author Gale Appiah D.O. Organization [facility] Address [address] [place] [id number] Phone Care Team Providers Care Rn Diabetes Educator Name Role Phone María Elena Appiah D.O., PP Unavailable CCM Unavailable Summary Purpose Interface Exchange Insurance Providers Payer name Policy type / Coverage type Covered republican ID Effective Begin Date Effective End Date [facility] Commercial Insurance [id number] Unknown Family History Family History data not found Social History Social History Element Codes Description Effective Dates Tobacco history SNOMED CT: [id number] Never smoker 05/22/2011 Allergies, Adverse Reactions, Alerts [...] Fill Instructions Januvia 100 mg tablet RxNorm: 832989 1 Tablet(s) Oral QD 11/20/2019 0 11/20/2019 Inactive glimepiride 2 mg tablet RxNorm: 990437 1 Tablet(s) Oral two sawyer es a day 11/20/2019 12/20/2019 Active cyclobenzaprine 10 mg tablet RxNorm: 389827 TAKE ONE TA BLET BY MOUTH THREE TIMES A DAY NEEDED FOR MUSCLE SPASMS 11/17/2019 No Stop Date Active doxepin 25 mg capsule RxNorm: 4638090 TAKE ONE CAPSULE B Y MOUTH EVERY NIGHT AT BEDTIME NEEDED FOR SLEEP 11/16/2019 No Stop Date Active Klor-Con 8 mEq tablet,extended release RxNorm: 707114 T FARRUKH ONE TABLET BY MOUTH TWICE A DAY 11/16/2019 No Stop Date Active hydrocodone 10 mg-acetaminophen 325 mg tablet RxNorm: 141033 1-2 Tablet(s) Oral three times a day as needed for pain 11/10/2019 No Stop Date Active cyclobenzaprine 10 mg tablet RxNorm: 482606 TAKE ONE TA BLET BY MOUTH THREE TIMES A DAY NEEDED FOR MUSCLE SPASMS 10/23/2019 11/16/2019 Inactive duloxetine 60 mg capsule,delayed release RxNorm: 490304 1 Capsu le(s) Oral QD 10/17/2019 04/13/2020 Active celecoxib 200 mg capsule RxNorm: 312852 1 Capsule(s) Or al two times a day as needed for pain 10/17/2019 01/14/2020 Active lisinopril 20 mg tablet RxNorm: 974771 1 Tablet(s) Oral QD 10/17/1904/13/2020 Active gabapentin 300 mg capsule RxNorm: 952425 1 Capsule(s) O ral every night at bedtime 10/17/2019 01/15/2020 Active Singulair 10 mg tablet RxNorm: 956329 1 Tablet(s) Oral QD 10/17/2019 04/14/2020 Active metoprolol tartrate 100 mg tablet RxNorm: 027961 1 Tabl et(s) Oral two times a day 10/17/2019 04/13/2020 Active clonidine HCl 0.1 mg tablet RxNorm: 996024 1 Tablet(s) Oral fou r times a day 10/17/2019 04/13/2020 Active Januvia 100 mg tablet RxNorm: 824900 1 Tablet(s) Oral QD 10/17/2019 No Stop Date Active Lipitor 10 mg tablet RxNorm: 422314 1 Tablet(s) Oral QD 10/17/2019 Active Steglatro 15 mg tablet RxNorm: 9036011 1 Tablet(s) Oral QD 10/17/19 No Stop Date Active Klor-Con 8 mEq tablet,extended release RxNorm: 966783 1 Tablet(s) Oral two times a day 10/17/2019 11/15/2019 Inactive Glyxambi 25 mg-5 mg tablet RxNorm: 1957355 1 Tablet(s) Oral QD 01/202010/16/2019 Inactive Patient will bring in copay discount card as well Glyxambi 25 mg-5 mg tablet RxNorm: 5244528 1 Tablet(s) Oral QD 01/202010/14/2019 Inactive Patient will bring in copay discount card as well Keflex 500 mg capsule RxNorm: 804902 1 Capsule(s) Oral two time s a day 10/07/2019 10/14/2019 Inactive Premarin 1.25 mg tablet RxNorm: 046110 1 Tablet(s) Oral QD 09/30/1906/25/2020 Active hydrocodone 10 mg-acetaminophen 325 mg tablet RxNorm: 971906 1-2 Tablet(s) Oral three times a day as needed for pain 09/30/2019 09/30/2019 Inactive baclofen 10 mg tablet RxNorm: 829859 TAKE ONE TABLET BY MOUTH THREE TIMES A DAY NEEDED 09/19/2019 No Stop Date Active gabapentin 300 mg capsule RxNorm: 445796 TAKE ONE CAPSU LE BY MOUTH EVERY NIGHT AT BEDTIME 09/19/2019 10/16/2019 Inactive Klor-Con 8 mEq tablet,extended release RxNorm: 561120 T FARRUKH ONE TABLET BY MOUTH TWICE A DAY 1 Tablet(s) Oral two times a day 09/19/2019 10/16/[address] [place] ctive hydrocodone 10 mg-acetaminophen 325 mg tablet RxNorm: 709785 1-2 Tablet(s) Oral three times a day as needed for pain 09/19/2019 09/29/2019 Inactive triamterene 75 mg-hydrochlorothiazide 50 mg tablet RxNorm: 3 69166 TAKE ONE TABLET BY MOUTH DAILY 09/11/2019 No Stop Date Active allopurinol 300 mg tablet RxNorm: 086996 TAKE ONE TABLET BY LOPEZ TH DAILY 09/11/2019 No Stop Date Active duloxetine 60 mg capsule,delayed release RxNorm: 051046 TAKE ONE CAPSULE BY MOUTH DAILY 09/11/2019 10/16/2019 Inactive Lipitor 10 mg tablet RxNorm: 693432 TAKE ONE TABLET BY MOUTH AT BEDTIME 09/11/2019 10/16/2019 Inactive lisinopril 20 mg tablet RxNorm: 896089 TAKE ONE TABLET BY MOUTH DAILY .... THIS REPLACE 10MG TABLETS 09/11/2019 10/16/2019 Inactive celecoxib 200 mg capsule RxNorm: 332489 TAKE ONE CAPSUL E BY MOUTH TWICE A DAY NEEDED FOR PAIN 09/11/2019 10/16/2019 Inactive clonidine HCl 0.1 mg tablet RxNorm: 338648 TAKE ONE TAB LET BY MOUTH FOUR TIMES A DAY 09/11/2019 10/16/2019 Inactive doxepin 25 mg capsule RxNorm: 3674374 1 Capsule(s) Oral every night at bedtime as needed for sleep 08/21/2019 11/15/2019 Inactive hydrocodone 10 mg-acetaminophen 325 mg tablet RxNorm: 004228 1-2 Tablet(s) PO TID 08/12/2019 09/29/2019 Inactive as needed for pa in - Previous quantity #240, will start dosing for #180 in April 2011 per Doctor Td. Medrol (Dustin) 4 mg tablets in a dose pack RxNorm: 893653 Tablet(s) Oral As Directed 07/21/2019 09/29/2019 Inactive Premarin 1.25 mg tablet RxNorm: 861539 1 Tablet(s) Oral QD 07/02/2009/29/2019 Inactive hydrocodone 10 mg-acetaminophen 325 mg tablet RxNorm: 673991 1-2 Tablet(s) PO TID 07/01/2019 08/11/2019 Inactive as needed for pa in - Previous quantity #240, will start dosing for #180 in April 2011 per Doctor Td. gabapentin 300 mg capsule RxNorm: 848732 1 Capsule(s) PO QHS 201809/18/2019 Inactive celecoxib 200 mg capsule RxNorm: 411156 1 Capsule(s) Or al two times a day as needed for pain 06/27/2019 06/27/2019 Inactive furosemide 40 mg tablet RxNorm: 785790 TAKE ONE TABLET BY MOUTH EVERY MORNING NEEDED FOR EDEMA . TAKE WITH POTASSIUM 06/24/2019 No Stop Date Active doxepin 25 mg capsule RxNorm: 6449911 TAKE ONE CAPSULE B Y MOUTH EVERY NIGHT AT BEDTIME NEEDED FOR SLEEP 06/24/2019 08/20/2019 Inactive Singulair 10 mg tablet RxNorm: 921372 TAKE ONE TABLET BY MOUTH JOSÉ Y 06/24/2019 10/16/2019 Inactive lisinopril 20 mg tablet RxNorm: 829353 TAKE ONE TABLET BY MOUTH DAILY .... THIS REPLACE 10MG TABLETS 06/24/2019 09/10/2019 Inactive nystatin-triamcinolone 100,000 unit/g-0.1 % topical cream Rx Norm: 3718441 1 Application Topical two times a day 06/12/2019 06/19/2019 Inactive apply BID for 1 week nystatin-triamcinolone 100,000 unit/g-0.1 % topical cream Rx Norm: 4307951 1 Application Topical two times a day 06/12/2019 06/11/2019 Inactive apply BID for 1 week hydrocodone 10 mg-acetaminophen 325 mg tablet RxNorm: 991872 1-2 Tablet(s) PO QID as needed for pain MUST LAST 30 DAYS 05/28/2019 06/26/2019 Inactiv e (Response to an electronic controlled substance refill request - RxReferenceNumber: [id number]) baclofen 20 mg tablet RxNorm: 072001 1 Tablet(s) PO TID as needed for muscle spasm 05/19/2019 05/27/2019 Inactive gabapentin 300 mg capsule RxNorm: 069185 1 Capsule(s) PO QHS 201805/27/2019 Inactive lisinopril 20 mg tablet RxNorm: 865910 1 Tablet(s) PO Q D TAKE ONE TABLET BY MOUTH DAILY, REPLACES 10 MG DOSE 05/19/2019 06/23/2019 Inactive doxepin 25 mg capsule RxNorm: 5705101 TAKE ONE CAPSULE B Y MOUTH EVERY NIGHT AT BEDTIME NEEDED FOR SLEEP 05/16/2019 06/14/2019 Inactive lisinopril 20 mg tablet RxNorm: 476464 TAKE ONE TABLET BY MOUTH DAILY, REPLACES 10 MG DOSE 05/16/2019 05/18/2019 Inactive Singulair 10 mg tablet RxNorm: 198239 TAKE ONE TABLET BY MOUTH JOSÉ Y 05/16/2019 06/14/2019 Inactive gabapentin 300 mg capsule RxNorm: 832153 1 Capsule(s) PO QHS 201805/04/2019 Inactive estropipate 1.5 mg tablet RxNorm: 734161 1 Tablet(s) PO QD 05/05/20 19 05/27/2019 Inactive estropipate 1.5 mg tablet RxNorm: 100693 1 Tablet(s) PO QD 05/05/20 19 05/04/2019 Inactive gabapentin 300 mg capsule RxNorm: 733719 1 Capsule(s) PO QHS 201805/18/2019 Inactive hydrocodone 10 mg-acetaminophen 325 mg tablet RxNorm: 168279 1-2 Tablet(s) PO QID as needed for pain MUST LAST 30 DAYS 04/25/2019 05/24/2019 Inactiv e (Response to an electronic controlled substance refill request - RxReferenceNumber: [id number]) cyclobenzaprine 10 mg tablet RxNorm: 791546 TAKE ONE TA BLET BY MOUTH THREE TIMES A DAY NEEDED FOR MUSCLE SPASMS 04/24/2019 05/18/2019 Inactive metoprolol tartrate 100 mg tablet RxNorm: 188261 TAKE O NE TABLET BY MOUTH TWICE A DAY 04/24/2019 10/16/2019 Inactive Lyrica 75 mg capsule RxNorm: 244625 1 Capsule(s) PO QHS 03/25/2019 Inactive duloxetine 60 mg capsule,delayed release RxNorm: 211837 TAKE ONE CAPSULE BY MOUTH DAILY 03/21/2019 05/19/2019 Inactive triamterene 75 mg-hydrochlorothiazide 50 mg tablet RxNorm: 3 70070 TAKE ONE TABLET BY MOUTH DAILY 03/21/2019 05/19/2019 Inactive Klor-Con 8 mEq tablet,extended release RxNorm: 210336 T FARRUKH ONE TABLET BY MOUTH TWICE A DAY 03/21/2019 09/18/2019 Inactive Lipitor 10 mg tablet RxNorm: 711480 TAKE ONE TABLET BY MOUTH AT BEDTIME 03/21/2019 09/10/2019 Inactive clonidine HCl 0.1 mg tablet RxNorm: 308428 TAKE ONE TAB LET BY MOUTH FOUR TIMES A DAY 03/21/2019 05/19/2019 Inactive allopurinol 300 mg tablet RxNorm: 034577 TAKE ONE TABLET BY LOPEZ TH DAILY 03/21/2019 05/19/2019 Inactive hydrocodone 10 mg-acetaminophen 325 mg tablet RxNorm: 003246 1-2 Tablet(s) PO QID as needed for pain MUST LAST 30 DAYS 02/28/2019 03/29/2019 Inactiv e (Response to an electronic controlled substance refill request - RxReferenceNumber: [id number]) furosemide 40 mg tablet RxNorm: 078776 TAKE ONE TABLET BY MOUTH EVERY MORNING NEEDED FOR EDEMA . TAKE WITH POTASSIUM 02/21/2019 03/22/2019 Inactive cyclobenzaprine 10 mg tablet RxNorm: 776889 TAKE ONE TA BLET BY MOUTH THREE TIMES A DAY NEEDED FOR MUSCLE SPASMS 02/21/2019 04/21/2019 Inactive lisinopril 20 mg tablet RxNorm: 979096 TAKE ONE TABLET BY MOUTH DAILY, REPLACES 10 MG DOSE 02/21/2019 05/15/2019 Inactive doxepin 25 mg capsule RxNorm: 8126451 TAKE ONE CAPSULE B Y MOUTH EVERY NIGHT AT BEDTIME NEEDED FOR SLEEP 02/21/2019 05/15/2019 Inactive nystatin 100,000 unit/gram topical cream RxNorm: 217103 APPLY TO AFFECTED AREA(S) TWO TIMES A DAY 02/21/2019 03/22/2019 Inactive estradiol 1 mg tablet RxNorm: 134270 2 Tablet(s) PO QD replaces premarin 01/22/2019 05/04/2019 Inactive lisinopril 20 mg tablet RxNorm: 233200 TAKE ONE TABLET BY MOUTH DAILY, REPLACES 10 MG DOSE 01/20/2019 02/18/2019 Inactive cyclobenzaprine 10 mg tablet RxNorm: 738868 TAKE ONE TA BLET BY MOUTH THREE TIMES A DAY NEEDED FOR MUSCLE SPASMS 01/20/2019 02/18/2019 Inactive metoprolol tartrate 100 mg tablet RxNorm: 067775 TAKE O NE TABLET BY MOUTH TWICE A DAY 01/20/2019 02/18/2019 Inactive cyclobenzaprine 10 mg tablet RxNorm: 244716 TAKE ONE TA BLET BY MOUTH THREE TIMES A DAY NEEDED FOR MUSCLE SPASMS 12/19/2018 01/17/2019 Inactive lisinopril 20 mg tablet RxNorm: 839037 TAKE ONE TABLET BY MOUTH DAILY, REPLACES 10 MG DOSE 12/19/2018 01/17/2019 Inactive duloxetine 60 mg capsule,delayed release RxNorm: 051852 TAKE ONE CAPSULE BY MOUTH DAILY 12/19/2018 01/17/2019 Inactive Lipitor 10 mg tablet RxNorm: 781034 TAKE ONE TABLET BY MOUTH AT BEDTIME 12/19/2018 01/17/2019 Inactive cyclobenzaprine 10 mg tablet RxNorm: 808940 1 Tablet(s) PO TID as needed for muscle spasm 11/19/2018 12/18/2018 Inactive Singulair 10 mg tablet RxNorm: 033322 1 Tablet(s) PO QD 11/19/2018 Inactive lisinopril 20 mg tablet RxNorm: 349065 TAKE ONE TABLET BY MOUTH DAILY, REPLACES 10 MG DOSE 11/15/2018 12/18/2018 Inactive hydrocodone 10 mg-acetaminophen 325 mg tablet RxNorm: 864370 1-2 Tablet(s) PO QID as needed for pain MUST LAST 30 DAYS 11/13/2018 12/12/2018 Inactiv e (Response to an electronic controlled substance refill request - RxReferenceNumber: [id number]) nystatin 100,000 unit/gram topical cream RxNorm: 821408 APPLY TO AFFECTED AREA(S) TWO TIMES A DAY 10/23/2018 11/06/2018 Inactive lisinopril 20 mg tablet RxNorm: 920539 1 Tablet(s) PO QD replac es 10mg dose 10/18/2018 11/14/2018 Inactive hydrocodone 10 mg-acetaminophen 325 mg tablet RxNorm: 281897 1-2 Tablet(s) QID as needed for pain MUST LAST 30 DAYS 10/08/2018 11/06/2018 Inactive (Response to an electronic controlled substance refill request - RxReferenceNumber: [id number]) lisinopril 10 mg tablet RxNorm: 702745 1 Tablet(s) PO QD 10/03/2018 0 01/21/2019 Inactive Celebrex 200 mg capsule RxNorm: 972510 TAKE ONE CAPSULE BY MOUT H TWICE A DAY 09/30/2018 05/04/2019 Inactive cyclobenzaprine 10 mg tablet RxNorm: 288819 TAKE ONE TA BLET BY MOUTH THREE TIMES A DAY NEEDED FOR MUSCLE SPASMS 09/30/2018 11/18/2018 Inactive doxepin 25 mg capsule RxNorm: 5821974 TAKE ONE CAPSULE B Y MOUTH EVERY NIGHT AT BEDTIME NEEDED 09/05/2018 10/16/2018 Inactive omeprazole 40 mg capsule,delayed release RxNorm: 735659 TAKE ONE CAPSULE BY MOUTH DAILY 09/05/2018 01/21/2019 Inactive furosemide 40 mg tablet RxNorm: 611454 TAKE ONE TABLET BY MOUTH EVERY MORNING NEEDED FOR EDEMA . TAKE WITH POTASSIUM 09/05/2018 11/03/2018 Inactive phentermine 37.5 mg tablet RxNorm: 733853 1 Tablet(s) PO QAM 201701/21/2019 Inactive doxepin 25 mg capsule RxNorm: 9268015 1 Capsule(s) PO QH S as needed for sleep TAKE ONE CAPSULE BY MOUTH EVERY NIGHT AT BEDTIME NEEDED 08/27/2018 09/04/2018 Inactive Keflex 500 mg capsule RxNorm: 310693 1 Capsule(s) PO TID 08/09/2018 1 10/19/2017 Inactive Diflucan 100 mg tablet RxNorm: 480142 1 Tablet(s) PO QD 08/09/2018 Inactive Premarin 1.25 mg tablet RxNorm: 396381 2 Tablet(s) PO QD 08/09/2018 0 05/04/2019 Inactive Zofran ODT 4 mg disintegrating tablet RxNorm: 453060 1 Tablet(s) PO Q4H as needed for nausea 08/09/2018 01/21/2019 Inactive metoprolol tartrate 100 mg tablet RxNorm: 185824 TAKE O NE TABLET BY MOUTH TWICE A DAY 2018 10/04/2018 Inactive doxepin 25 mg capsule RxNorm: 4133033 TAKE ONE CAPSULE B Y MOUTH EVERY NIGHT AT BEDTIME NEEDED 2018 08/26/2018 Inactive cyclobenzaprine 10 mg tablet RxNorm: 117141 TAKE ONE TA BLET BY MOUTH THREE TIMES A DAY NEEDED FOR MUSCLE SPASMS 2018 09/29/2018 Inactive hydrocodone 10 mg-acetaminophen 325 mg tablet RxNorm: 999280 1-2 Tablet(s) QID as needed for pain MUST LAST 30 DAYS 07/29/2018 08/27/2018 Inactive (Response to an electronic controlled substance refill request - RxReferenceNumber: [id number]) nystatin 100,000 unit/gram topical powder RxNorm: 339721 Applic ation TOP BID 07/22/2018 08/04/2018 Inactive doxepin 25 mg capsule RxNorm: 2767739 1 Capsule(s) PO QHS as needed 07/22/2018 08/05/2018 Inactive triamterene 75 mg-hydrochlorothiazide 50 mg tablet RxNorm: 3 48602 TAKE ONE TABLET BY MOUTH DAILY 07/05/2018 10/02/2018 Inactive duloxetine 60 mg capsule,delayed release RxNorm: 405466 TAKE ONE CAPSULE BY MOUTH DAILY 07/05/2018 09/02/2018 Inactive Klor-Con 8 mEq tablet,extended release RxNorm: 257468 T FARRUKH ONE TABLET BY MOUTH TWICE A DAY 07/05/2018 10/02/2018 Inactive Lipitor 10 mg tablet RxNorm: 515951 TAKE ONE TABLET BY MOUTH AT BEDTIME 07/05/2018 09/02/2018 Inactive allopurinol 300 mg tablet RxNorm: 569205 TAKE ONE TABLET BY LOPEZ TH DAILY 07/05/2018 10/02/2018 Inactive clonidine HCl 0.1 mg tablet RxNorm: 005872 TAKE ONE TAB LET BY MOUTH FOUR TIMES A DAY 07/05/2018 10/02/2018 Inactive hydrocodone 10 mg-acetaminophen 325 mg tablet RxNorm: 121235 1-2 Tablet(s) QID as needed for pain MUST LAST 30 DAYS 06/28/2018 07/27/2018 Inactive (Response to an electronic controlled substance refill request - RxReferenceNumber: [id number]) MediHoney (calcium alginate-honey) 4" X 5" bandage RxNorm: 1 Application TOP QD 06/17/2018 06/26/2018 Inactive honey-hydrocolloid dressing 4" X 5" RxNorm: 1 Application TOP QD 06/17/2018 07/16/2018 Inactive furosemide 40 mg tablet RxNorm: 356472 TAKE ONE TABLET BY MOUTH EVERY MORNING NEEDED FOR EDEMA . TAKE WITH POTASSIUM 06/10/2018 07/09/2018 Inactive This is a refill request. hydrocodone 10 mg-acetaminophen 325 mg tablet RxNorm: 751724 1-2 Tablet(s) QID as needed for pain MUST LAST 30 DAYS 05/30/2018 06/27/2018 Inactive (Response to an electronic controlled substance refill request - RxReferenceNumber: [id number]) acyclovir 800 mg tablet RxNorm: 276945 1 Tablet(s) PO 5x day 201705/22/2018 Inactive Premarin 1.25 mg tablet RxNorm: 579255 1-2 Tablet(s) PO QD 05/15/20 18 07/13/2018 Inactive cyclobenzaprine 10 mg tablet RxNorm: 301612 1 Tablet(s) PO TID as needed for muscle spasm 05/09/2018 05/08/2018 Inactive Medrol (Dustin) 4 mg tablets in a dose pack RxNorm: 583816 Tablet(s) PO As Directed 05/02/2018 06/16/2018 Inactive hydrocodone 10 mg-acetaminophen 325 mg tablet RxNorm: 718181 1-2 Tablet(s) QID as needed for pain MUST LAST 30 DAYS 04/30/2018 05/29/2018 Inactive (Response to an electronic controlled substance refill request - RxReferenceNumber: [id number]) duloxetine 60 mg capsule,delayed release RxNorm: 500732 TAKE ONE CAPSULE BY MOUTH DAILY 04/16/2018 05/15/2018 Inactive Celebrex 200 mg capsule RxNorm: 094122 TAKE ONE CAPSULE BY MOUT H TWICE A DAY 04/16/2018 06/14/2018 Inactive Singulair 10 mg tablet RxNorm: 291629 TAKE ONE TABLET BY MOUTH JOSÉ Y 04/16/2018 11/19/2018 Inactive Lipitor 10 mg tablet RxNorm: 144444 TAKE ONE TABLET BY MOUTH AT BEDTIME 04/16/2018 05/15/2018 Inactive hydrocodone 10 mg-acetaminophen 325 mg tablet RxNorm: 085834 1-2 Tablet(s) QID as needed for pain MUST LAST 30 DAYS 03/29/2018 04/27/2018 Inactive (Response to an electronic controlled substance refill request - RxReferenceNumber: [id number]) cyclobenzaprine 10 mg tablet RxNorm: 842043 1 Tablet(s) PO TID as needed for muscle spasm 03/18/2018 05/09/2018 Inactive omeprazole 40 mg capsule,delayed release RxNorm: 848551 1 Capsu le(s) PO QD 02/26/2018 08/24/2018 Inactive hydrocodone 10 mg-acetaminophen 325 mg tablet RxNorm: 312478 1-2 Tablet(s) QID as needed for pain MUST LAST 30 DAYS 02/26/2018 03/27/2018 Inactive (Response to an electronic controlled substance refill request - RxReferenceNumber: [id number]) metoprolol tartrate 100 mg tablet RxNorm: 749679 1 Tablet(s) PO BID 02/18/2018 08/05/2018 Inactive Lyrica 75 mg capsule RxNorm: 392936 1 Capsule(s) PO QHS 01/30/2018 Inactive phentermine 37.5 mg tablet RxNorm: 410975 1 Tablet(s) PO QAM 201706/16/2018 Inactive hydrocodone 10 mg-acetaminophen 325 mg tablet RxNorm: 617879 1-2 Tablet(s) QID as needed for pain MUST LAST 30 DAYS 01/29/2018 02/25/2018 Inactive (Response to an electronic controlled substance refill request - RxReferenceNumber: [id number]) Klor-Con 8 mEq tablet,extended release RxNorm: 566011 1 Tablet( s) PO BID 01/14/2018 07/04/2018 Inactive allopurinol 300 mg tablet RxNorm: 004023 1 Tablet(s) PO QD 01/15/2007/04/2018 Inactive Lipitor 10 mg tablet RxNorm: 591362 1 Tablet(s) PO QHS 01/14/201812/2017 Inactive triamterene 75 mg-hydrochlorothiazide 50 mg tablet RxNorm: 3 88201 1 Tablet(s) PO QD 01/14/2018 07/04/2018 Inactive hydrocodone 10 mg-acetaminophen 325 mg tablet RxNorm: 959637 1-2 Tablet(s) QID as needed for pain MUST LAST 30 DAYS 12/27/2017 01/25/2018 Inactive (Response to an electronic controlled substance refill request - RxReferenceNumber: [id number]) Onglyza 5 mg tablet RxNorm: 718137 1 Tablet(s) PO QD 12/18/201701/29 Inactive metformin 500 mg tablet RxNorm: 486146 1 Tablet(s) PO BID 12/11/2017 12/10/2017 Inactive metformin 500 mg tablet RxNorm: 565610 1 Tablet(s) PO BID 12/11/2017 12/17/2017 Inactive furosemide 40 mg tablet RxNorm: 601443 1 Tablet(s) PO Q AM prn edema--take with potassium 12/11/2017 06/08/2018 Inactive cyclobenzaprine 10 mg tablet RxNorm: 100051 1 Tablet(s) PO TID as needed for muscle spasm 12/11/2017 03/18/2018 Inactive hydrocodone 10 mg-acetaminophen 325 mg tablet RxNorm: 336079 1-2 Tablet(s) QID as needed for pain MUST LAST 30 DAYS 10/23/2017 11/21/2017 Inactive (Response to an electronic controlled substance refill request - RxReferenceNumber: [id number]) Lipitor 10 mg tablet RxNorm: 100440 1 Tablet(s) PO QHS 10/16/201703/2018 Inactive cyclobenzaprine 10 mg tablet RxNorm: 921112 1 Tablet(s) PO TID as needed for muscle spasm 10/09/2017 12/10/2017 Inactive hydroxyzine HCl 25 mg tablet RxNorm: 663898 1 Tablet(s) PO BID as needed for anxiety 09/20/2017 01/29/2018 Inactive Effexor XR 75 mg capsule,extended release RxNorm: 344523 1 Caps ule(s) PO QD 09/20/2017 01/29/2018 Inactive metoprolol tartrate 100 mg tablet RxNorm: 812993 1 Tablet(s) PO BID 08/20/2017 02/18/2018 Inactive baclofen 20 mg tablet RxNorm: 225085 1 Tablet(s) PO TID as needed for muscle spasm 08/20/2017 01/21/2019 Inactive clonidine HCl 0.1 mg tablet RxNorm: 511095 1 Tablet(s) PO QID 08/2005/16/2018 Inactive Seroquel 25 mg tablet RxNorm: 649941 1 Tablet(s) PO QHS 08/17/2017 Inactive Seroquel 25 mg tablet RxNorm: 329535 1 Tablet(s) PO QHS 08/17/2017 Inactive Diflucan 100 mg tablet RxNorm: 190312 TAKE ONE TABLET BY MOUTH JOSÉ Y 07/25/2017 08/07/2017 Inactive hydrocodone 10 mg-acetaminophen 325 mg tablet RxNorm: 035003 1-2 Tablet(s) QID as needed for pain MUST LAST 30 DAYS 07/19/2017 08/17/2017 Inactive (Response to an electronic controlled substance refill request - RxReferenceNumber: [id number]) clindamycin 300 mg capsule RxNorm: 267602 1 Capsule(s) PO TID 07/1907/28/2017 Inactive clotrimazole-betamethasone 1 %-0.05 % topical cream RxNorm: 808958 Application TOP BID to elbow rash 07/19/2017 06/16/2018 Inactive Singulair 10 mg tablet RxNorm: 093109 Tablet(s) TAKE ONE TABLET BY MOUTH DAILY 07/18/2017 04/13/2018 Inactive triamterene 75 mg-hydrochlorothiazide 50 mg tablet RxNorm: 3 70322 1 Tablet(s) PO QD 07/18/2017 01/14/2018 Inactive Celebrex 200 mg capsule RxNorm: 781635 Capsule(s) TAKE ONE CAPSULE BY MOUTH TWICE A DAY 07/18/2017 10/15/2017 Inactive hydrocodone 10 mg-acetaminophen 325 mg tablet RxNorm: 295006 1-2 Tablet(s) QID as needed for pain MUST LAST 30 DAYS 06/19/2017 07/18/2017 Inactive (Response to an electronic controlled substance refill request - RxReferenceNumber: [id number]) hydrocodone 10 mg-acetaminophen 325 mg tablet RxNorm: 267717 1-2 Tablet(s) QID as needed for pain MUST LAST 30 DAYS 06/19/2017 06/18/2017 Inactive (Response to an electronic controlled substance refill request - [facility]: [id number]) baclofen 20 mg tablet RxNorm: 379765 1 Tablet(s) PO TID as needed for muscle spasm 06/18/2017 08/20/2017 Inactive Medrol (Dustin) 4 mg tablets in a dose pack RxNorm: 715427 Tablet(s) PO As Directed 06/05/2017 07/18/2017 Inactive omeprazole 40 mg capsule,delayed release RxNorm: 241421 1 Capsu le(s) PO QD 04/20/2017 10/16/2017 Inactive Premarin 1.25 mg tablet RxNorm: 082065 1-2 Tablet(s) PO QD 04/11/20 17 05/15/2018 Inactive duloxetine 60 mg capsule,delayed release RxNorm: 486199 1 Capsu le(s) PO QD 04/11/2017 09/19/2017 Inactive furosemide 40 mg tablet RxNorm: 797886 1 Tablet(s) PO Q AM prn edema--take with potassium 04/11/2017 12/11/2017 Inactive Klor-Con 8 mEq tablet,extended release RxNorm: 274055 1 Tablet( s) PO BID 04/11/2017 01/14/2018 Inactive Lipitor 10 mg tablet RxNorm: 349207 1 Tablet(s) PO QHS 04/11/201702/2018 Inactive amlodipine 5 mg-benazepril 20 mg capsule RxNorm: 014244 1 Capsu le(s) PO QD 04/11/2017 01/29/2018 Inactive allopurinol 300 mg tablet RxNorm: 527664 1 Tablet(s) PO QD 04/11/20 17 01/14/2018 Inactive clonidine HCl 0.1 mg tablet RxNorm: 031409 1 Tablet(s) PO QID 04/0508/19/2017 Inactive baclofen 20 mg tablet RxNorm: 739798 1 Tablet(s) PO TID as needed for muscle spasm 04/02/2017 06/18/2017 Inactive Premarin 1.25 mg tablet RxNorm: 148336 1-2 Tablet(s) PO QD 03/20/2026 0404/10/2017 Inactive hydrocodone 10 mg-acetaminophen 325 mg tablet RxNorm: 722184 1-2 Tablet(s) QID as needed for pain MUST LAST 30 DAYS 03/14/2017 01/21/2019 Inactive (Response to an electronic controlled substance refill request - RxReferenceNumber: [id number]) metoprolol tartrate 100 mg tablet RxNorm: 319417 1 Tablet(s) PO BID 02/12/2017 08/20/2017 Inactive hydrocodone 10 mg-acetaminophen 325 mg tablet RxNorm: 372578 1-2 Tablet(s) QID as needed for pain MUST LAST 30 DAYS 02/08/2017 03/09/2017 Inactive (Response to an electronic controlled substance refill request - RxReferenceNumber: [id number]) metoprolol tartrate 100 mg tablet RxNorm: 382488 TAKE O NE TABLET BY MOUTH TWICE A DAY 01/11/2017 02/12/2017 Inactive metoprolol tartrate 100 mg tablet RxNorm: 102243 1 Tablet(s) PO BID 12/18/2016 12/17/2016 Inactive metoprolol tartrate 100 mg tablet RxNorm: 120836 1 Tablet(s) PO BID 12/18/2016 01/10/2017 Inactive furosemide 40 mg tablet RxNorm: 710202 1 Tablet(s) PO Q AM prn edema--take with potassium 12/13/2016 02/10/2017 Inactive amitriptyline 100 mg tablet RxNorm: 486633 1 Tablet(s) PO QHS 11/2812/12/2016 Inactive baclofen 20 mg tablet RxNorm: 178917 1 Tablet(s) PO TID as needed for muscle spasm 11/14/2016 04/01/2017 Inactive triamterene 75 mg-hydrochlorothiazide 50 mg tablet RxNorm: 3 97677 1 Tablet(s) PO QD 11/14/2016 11/13/2016 Inactive metolazone 2.5 mg tablet RxNorm: 274628 TAKE ONE TABLET BY MOUTH DAILY NEEDED FOR EDEMA 11/14/2016 12/12/2016 Inactive triamterene 75 mg-hydrochlorothiazide 50 mg tablet RxNorm: 3 41138 1 Tablet(s) PO QD 11/14/2016 07/18/2017 Inactive amitriptyline 50 mg tablet RxNorm: 144018 TAKE ONE TABL ET BY MOUTH AT BEDTIME NEEDED FOR SLEEP 11/14/2016 11/27/2016 Inactive Cymbalta 60 mg capsule,delayed release RxNorm: 057229 1 Capsule (s) PO QHS 11/14/2016 12/12/2016 Inactive clonidine HCl 0.1 mg tablet RxNorm: 647770 1 Tablet(s) PO QID 11/1304/04/2017 Inactive amitriptyline 50 mg tablet RxNorm: 915338 1 Tablet(s) P O QHS as needed for sleep 11/01/2016 11/27/2016 Inactive duloxetine 60 mg capsule,delayed release RxNorm: 533923 TAKE ONE CAPSULE BY MOUTH DAILY 10/20/2016 01/17/2017 Inactive allopurinol 300 mg tablet RxNorm: 859234 TAKE ONE TABLET BY LOPEZ TH DAILY 10/20/2016 01/16/2017 Inactive Lyrica 75 mg capsule RxNorm: 153823 TAKE ONE CAPSULE BY MOUTH EVERY NIGHT AT BEDTIME 10/20/2016 12/10/2016 Inactive Klor-Con 8 mEq tablet,extended release RxNorm: 876908 T FARRUKH ONE TABLET BY MOUTH TWICE A DAY 10/20/2016 01/17/2017 Inactive Celebrex 200 mg capsule RxNorm: 053812 TAKE ONE CAPSULE BY MOUT H TWICE A DAY 10/20/2016 07/18/2017 Inactive Bystolic 10 mg tablet RxNorm: 164211 TAKE ONE TABLET BY MOUTH EVERY NIGHT AT BEDTIME 10/20/2016 12/17/2016 Inactive amlodipine 5 mg-benazepril 20 mg capsule RxNorm: 218790 TAKE ONE CAPSULE BY MOUTH EVERY NIGHT AT BEDTIME -- TO REPLACE AMLODOPINE 10/20/20162016 Inactive Lipitor 10 mg tablet RxNorm: 696873 TAKE ONE TABLET BY MOUTH EVERY NIGHT AT BEDTIME 10/20/2016 01/17/2017 Inactive alprazolam 0.5 mg tablet RxNorm: 894934 3 Tablet(s) PO QHS as needed for sleep/anxiety 09/20/2016 10/31/2016 Inactive Tamiflu 75 mg capsule RxNorm: 702901 1 Capsule(s) PO QD 09/19/2016 Inactive Lyrica 75 mg capsule RxNorm: 023585 1 Capsule(s) PO QHS 09/19/2016 Inactive prednisone 20 mg tablet RxNorm: 729395 1 Tablet(s) PO QD 08/10/2016 1 10/17/2015 Inactive doxycycline hyclate 100 mg capsule RxNorm: 0326784 1 Capsule(s) PO BID 08/10/2016 08/19/2016 Inactive Medrol (Dustin) 4 mg tablets in a dose pack RxNorm: 305666 Tablet(s) PO As Directed 07/31/2016 08/22/2016 Inactive Singulair 10 mg tablet RxNorm: 851171 TAKE ONE TABLET BY MOUTH JOSÉ Y 07/27/2016 07/18/2017 Inactive hydrocodone 10 mg-acetaminophen 325 mg tablet RxNorm: 596635 1-2 Tablet(s) QID as needed for pain MUST LAST 30 DAYS 07/26/2016 08/24/2016 Inactive (Response to an electronic controlled substance refill request - RxReferenceNumber: [id number]) alprazolam 0.5 mg tablet RxNorm: 814886 3 Tablet(s) PO QHS as needed for anxiety or sleep 07/26/2016 09/20/2016 Inactive clindamycin 300 mg capsule RxNorm: 089822 1 Capsule(s) PO TID 07/2007/29/2016 Inactive Diflucan 100 mg tablet RxNorm: 360490 1 Tablet(s) PO QD 07/20/2016 Inactive Levaquin 500 mg tablet RxNorm: 265057 1 Tablet(s) PO QD 07/17/2016 Inactive Levaquin 500 mg tablet RxNorm: 286085 1 Tablet(s) PO QD 07/10/2016 Inactive Levaquin 500 mg tablet RxNorm: 673045 1 Tablet(s) PO QD 07/10/2016 Inactive mupirocin 2 % topical ointment RxNorm: 175262 TOP Apply topically to affected areas twice daily 07/06/2016 09/18/2016 Inactive Singulair 10 mg tablet RxNorm: 331372 TAKE ONE TABLET BY MOUTH JOSÉ Y 06/21/2016 01/21/2019 Inactive alprazolam 0.5 mg tablet RxNorm: 125176 TAKE THREE TABL ETS BY MOUTH AT BEDTIME NEEDED FOR SLEEP OR STRESS 05/22/2016 06/20/2016 Inactive triamterene 75 mg-hydrochlorothiazide 50 mg tablet RxNorm: 3 83695 1 Tablet(s) PO QD 04/26/2016 10/21/2016 Inactive Premarin 1.25 mg tablet RxNorm: 973030 1-2 Tablet(s) PO QD 04/26/20 16 03/20/2017 Inactive Klor-Con 8 mEq tablet,extended release RxNorm: 675848 1 Tablet( s) PO BID 04/26/2016 10/19/2016 Inactive Celebrex 200 mg capsule RxNorm: 699054 1 Capsule(s) PO BID TAKE ONE CAPSULE BY MOUTH EVERY DAY 04/26/2016 10/19/2016 Inactive Lipitor 10 mg tablet RxNorm: 054972 1 Tablet(s) PO QHS 04/26/201605/2017 Inactive allopurinol 300 mg tablet RxNorm: 156928 1 Tablet(s) PO QD TAKE ONE TABLET BY MOUTH EVERY DAY 04/26/2016 10/19/2016 Inactive amlodipine 5 mg-benazepril 20 mg capsule RxNorm: 891031 1 Capsule(s) PO QHS replaces amlodopine 04/26/2016 10/19/2016 Inactive duloxetine 60 mg capsule,delayed release RxNorm: 853287 1 Capsu le(s) PO QD 04/26/2016 10/19/2016 Inactive Bystolic 10 mg tablet RxNorm: 203188 1 Tablet(s) PO QHS 04/26/2016 Inactive Singulair 10 mg tablet RxNorm: 648418 1 Tablet(s) PO QD TAKE ONE TABLET BY MOUTH DAILY 04/26/2016 06/20/2016 Inactive clonidine HCl 0.1 mg tablet RxNorm: 988296 1 Tablet(s) PO QID 04/2610/22/2016 Inactive hydrocodone 10 mg-acetaminophen 325 mg tablet RxNorm: 448007 1-2 Tablet(s) QID as needed for pain TAKE ONE TO TWO TABLETS BY MOUTH FOUR TIMES A DAY . MUST LAST 30 DAYS 03/31/2016 04/29/2016 Inactive (Response to an electronic controlled substance refill request - RxReferenceNumber: [id number]) Klor-Con 8 mEq tablet,extended release RxNorm: 317114 T FARRUKH ONE TABLET BY MOUTH TWICE A DAY 03/24/2016 09/29/2019 Inactive prednisone 20 mg tablet RxNorm: 635331 1 Tablet(s) PO QD 03/09/2016 0 03/08/2016 Inactive prednisone 20 mg tablet RxNorm: 752537 1 Tablet(s) PO QD 03/09/2016 0 03/13/2016 Inactive alprazolam 0.5 mg tablet RxNorm: 134172 3 Tablet(s) PO QHS as needed for sleep/stress 03/02/2016 01/21/2019 Inactive mupirocin 2 % topical ointment RxNorm: 537753 TOP twice daily to affected areas of face and neck 02/21/2016 04/25/2016 Inactive clonidine HCl 0.1 mg tablet RxNorm: 155354 TAKE ONE TAB LET BY MOUTH FOUR TIMES A DAY 02/15/2016 09/29/2019 Inactive clonidine HCl 0.1 mg tablet RxNorm: 652060 1 Tablet(s) PO QID 02/1404/25/2016 Inactive Premarin 1.25 mg tablet RxNorm: 224871 1-2 Tablet(s) PO QD 02/15/20 16 03/15/2016 Inactive Klor-Con 8 mEq tablet,extended release RxNorm: 077620 T FARRUKH ONE TABLET BY MOUTH TWICE A DAY 02/15/2016 03/15/2016 Inactive potassium chloride ER 20 mEq tablet,extended release(part/cr yst) RxNorm: 649797 2 Tablet(s) PO BID 02/15/2016 03/15/2016 Inactive Macrobid 100 mg capsule RxNorm: 297485 1 Capsule(s) PO BID 01/24/20 16 01/30/2016 Inactive prednisone 20 mg tablet RxNorm: 964117 Take 3tabs PO QD x 2 days, then 2 tabs PO QD x 2 days, then 1 tab PO QD x 2 days, then 1/2 tab PO QDy x 2 days 12/23/2015 04/25/2016 Inactive Klor-Con 8 mEq tablet,extended release RxNorm: 854462 T FARRUKH ONE TABLET BY MOUTH TWICE A DAY 12/20/2015 02/14/2016 Inactive alprazolam 1 mg tablet RxNorm: 765845 1 1/2 Tablet(s) PO QHS 201501/23/2016 Inactive nystatin 100,000 unit/gram topical cream RxNorm: 752229 APPLY TO AFFECTED AREA(S) TWO TIMES A DAY 11/30/2015 12/14/2015 Inactive Singulair 10 mg tablet RxNorm: 523526 TAKE ONE TABLET BY MOUTH JOSÉ Y 11/18/2015 04/25/2016 Inactive allopurinol 300 mg tablet RxNorm: 873380 1 Tablet(s) PO QD TAKE ONE TABLET BY MOUTH EVERY DAY 10/26/2015 04/22/2016 Inactive Singulair 10 mg tablet RxNorm: 679052 TAKE ONE TABLET BY MOUTH JOSÉ Y 10/26/2015 11/17/2015 Inactive duloxetine 60 mg capsule,delayed release RxNorm: 540512 1 Capsu le(s) PO QD 10/26/2015 04/22/2016 Inactive triamterene 75 mg-hydrochlorothiazide 50 mg tablet RxNorm: 3 15875 1 Tablet(s) PO QD 10/26/2015 11/14/2016 Inactive potassium chloride ER 20 mEq tablet,extended release(part/cr yst) RxNorm: 193046 2 Tablet(s) PO BID 10/26/2015 02/14/2016 Inactive Lipitor 10 mg tablet RxNorm: 266602 1 Tablet(s) PO QHS 10/26/2015 Inactive amlodipine 5 mg-benazepril 20 mg capsule RxNorm: 049507 1 Capsule(s) PO QHS replaces amlodopine 10/26/2015 04/22/2016 Inactive Bystolic 10 mg tablet RxNorm: 151665 1 Tablet(s) PO QHS 10/26/2015 Inactive amlodipine 5 mg-benazepril 20 mg capsule RxNorm: 334846 1 Capsule(s) PO QHS replaces amlodopine 10/06/2015 10/25/2015 Inactive amlodipine 5 mg tablet RxNorm: 160152 1 Tablet(s) PO QHS 09/30/2015 0 04/25/2016 Inactive metolazone 2.5 mg tablet RxNorm: 269942 TAKE ONE TABLET BY MOUTH DAILY NEEDED FOR EDEMA 09/30/2015 01/21/2019 Inactive duloxetine 60 mg capsule,delayed release RxNorm: 641380 1 Capsu le(s) PO QD 09/30/2015 10/25/2015 Inactive cephalexin 500 mg capsule RxNorm: 151085 1 Capsule(s) PO BID 201509/23/2015 Inactive mupirocin 2 % topical ointment RxNorm: 622415 TOP twice daily to affected areas of face and neck 09/14/2015 02/20/2016 Inactive baclofen 20 mg tablet RxNorm: 456688 1 Tablet(s) PO TID as needed for muscle spasm 09/01/2015 11/14/2016 Inactive clonidine HCl 0.1 mg tablet RxNorm: 751715 1 Tablet(s) PO QID 09/0102/14/2016 Inactive alprazolam 1 mg tablet RxNorm: 981024 1 1/2 Tablet(s) PO QHS 201409/09/2015 Inactive baclofen 20 mg tablet RxNorm: 083630 1 Tablet(s) PO TID as needed for muscle spasm 07/23/2015 09/01/2015 Inactive omeprazole 40 mg capsule,delayed release RxNorm: 551710 1 Capsu le(s) PO QD 07/23/2015 04/25/2016 Inactive alprazolam 1 mg tablet RxNorm: 358747 1 1/2 Tablet(s) PO QHS 201408/10/2015 Inactive Bystolic 10 mg tablet RxNorm: 859038 1 Tablet(s) PO BID 06/24/2015 Inactive allopurinol 300 mg tablet RxNorm: 188517 1 Tablet(s) PO QD TAKE ONE TABLET BY MOUTH EVERY DAY 06/23/2015 10/20/2015 Inactive alprazolam 1 mg tablet RxNorm: 303783 1 1/2 Tablet(s) PO QHS 201407/06/2015 Inactive clonidine HCl 0.1 mg tablet RxNorm: 791703 1 Tablet(s) PO QID 06/0209/01/2015 Inactive clonidine HCl 0.1 mg tablet RxNorm: 435713 1 Tablet(s) PO QID 06/0206/01/2015 Inactive Cymbalta 60 mg capsule,delayed release RxNorm: 445832 1 Capsule (s) PO QHS 06/02/2015 08/30/2015 Inactive Cymbalta 60 mg capsule,delayed release RxNorm: 148633 1 Capsule (s) PO QHS 06/02/2015 06/01/2015 Inactive clonidine HCl 0.1 mg tablet RxNorm: 344034 1 Tablet(s) PO TID 05/3106/01/2015 Inactive replaces 0.2mg dose metolazone 2.5 mg tablet RxNorm: 891282 TAKE ONE TABLET BY MOUTH DAILY NEEDED FOR EDEMA 05/21/2015 06/19/2015 Inactive Singulair 10 mg tablet RxNorm: 505208 TAKE ONE TABLET BY MOUTH JOSÉ Y 05/21/2015 10/17/2015 Inactive Cymbalta 30 mg capsule,delayed release RxNorm: 148245 1 Capsule (s) PO QHS 05/20/2015 11/14/2016 Inactive betamethasone valerate 0.1 % topical cream RxNorm: 885235 Appli cation TOP BID 05/10/2015 04/25/2016 Inactive Bactroban 2 % topical ointment RxNorm: 344963 Application TOP BID 0 05/10/2015 06/20/2015 Inactive baclofen 20 mg tablet RxNorm: 701990 1 Tablet(s) PO TID as needed 0 04/26/2015 07/23/2015 Inactive Lipitor 10 mg tablet RxNorm: 817491 1 Tablet(s) PO QHS 04/26/201508/2016 Inactive clonidine HCl 0.1 mg tablet RxNorm: 100414 1 Tablet(s) PO TID 04/2605/30/2015 Inactive replaces 0.2mg dose Klor-Con 8 mEq tablet,extended release RxNorm: 314305 1 Tablet( s) PO BID 04/26/2015 04/25/2016 Inactive metolazone 2.5 mg tablet RxNorm: 914877 1 Tablet(s) PO QD as ne eded for edema 04/26/2015 04/25/2015 Inactive triamterene 75 mg-hydrochlorothiazide 50 mg tablet RxNorm: 3 82978 1 Tablet(s) PO QD 04/26/2015 10/22/2015 Inactive Premarin 1.25 mg tablet RxNorm: 546559 1-2 Tablet(s) PO QD 04/26/20 15 10/22/2015 Inactive Bystolic 10 mg tablet RxNorm: 620590 1 Tablet(s) PO QAM TAKE ONE TABLET BY MOUTH EVERY MORNING 04/23/2015 06/23/2015 Inactive clonidine HCl 0.1 mg tablet RxNorm: 188189 1 Tablet(s) PO TID 03/2304/25/2015 Inactive replaces 0.2mg dose nystatin 100,000 unit/gram topical cream RxNorm: 222402 Applica tion TOP BID 03/23/2015 06/20/2015 Inactive baclofen 20 mg tablet RxNorm: 395914 1 Tablet(s) PO TID as needed 0 03/23/2015 04/25/2015 Inactive Premarin 1.25 mg tablet RxNorm: 517325 1-2 Tablet(s) PO QD 03/23/20 15 04/25/2015 Inactive Klor-Con 8 mEq tablet,extended release RxNorm: 709736 1 Tablet( s) PO BID 03/23/2015 04/25/2015 Inactive cefdinir 300 mg capsule RxNorm: 984007 2 Capsule(s) PO QD 03/16/2015 03/25/2015 Inactive baclofen 20 mg tablet RxNorm: 392073 1 Tablet(s) PO TID as needed 0 03/02/2015 03/22/2015 Inactive allopurinol 300 mg tablet RxNorm: 679334 1 Tablet(s) PO QD TAKE ONE TABLET BY MOUTH EVERY DAY 02/22/2015 05/22/2015 Inactive Klor-Con M20 mEq tablet,extended release RxNorm: 967714 2 Tablet(s) PO BID to use with lasix 02/22/2015 06/20/2015 Inactive clonidine HCl 0.1 mg tablet RxNorm: 294577 1 Tablet(s) PO TID 02/1903/22/2015 Inactive replaces 0.2mg dose Lipitor 10 mg tablet RxNorm: 263519 1 Tablet(s) PO QHS 01/20/201506/2015 Inactive Lipitor 10 mg tablet RxNorm: 785675 1 Tablet(s) PO QHS 01/20/2015 Inactive Singulair 10 mg tablet RxNorm: 164051 1 Tablet(s) PO QD TAKE ONE TABLET BY MOUTH EVERY DAY 11/20/2014 05/18/2015 Inactive Lipitor 10 mg tablet RxNorm: 604648 1 Tablet(s) PO QHS 11/20/201408/2015 Inactive allopurinol 300 mg tablet RxNorm: 770006 1 Tablet(s) PO QD TAKE ONE TABLET BY MOUTH EVERY DAY 11/20/2014 02/16/2015 Inactive Bystolic 10 mg tablet RxNorm: 386458 1 Tablet(s) PO QAM TAKE ONE TABLET BY MOUTH EVERY MORNING 11/20/2014 04/22/2015 Inactive Klor-Con 8 mEq tablet,extended release RxNorm: 071185 1 Tablet( s) PO BID 11/20/2014 02/17/2015 Inactive baclofen 20 mg tablet RxNorm: 684143 1 Tablet(s) PO TID as needed 0 11/20/2014 01/21/2019 Inactive baclofen 20 mg tablet RxNorm: 839097 1 Tablet(s) PO TID as needed 0 10/27/2014 11/19/2014 Inactive baclofen 20 mg tablet RxNorm: 553808 1 Tablet(s) PO TID as needed 0 10/26/2014 03/01/2015 Inactive allopurinol 300 mg tablet RxNorm: 056261 1 Tablet(s) PO QD TAKE ONE TABLET BY MOUTH EVERY DAY 10/26/2014 11/20/2014 Inactive Bystolic 10 mg tablet RxNorm: 685180 1 Tablet(s) PO QAM TAKE ONE TABLET BY MOUTH EVERY MORNING 10/26/2014 11/20/2014 Inactive clonidine HCl 0.1 mg tablet RxNorm: 898763 1 Tablet(s) PO TID 09/2805/27/2019 Inactive replaces 0.2mg dose clonidine HCl 0.1 mg tablet RxNorm: 265464 1 Tablet(s) PO TID 09/2802/18/2015 Inactive replaces 0.2mg dose baclofen 20 mg tablet RxNorm: 861420 1 Tablet(s) PO TID as needed 1 11/01/2013 08/30/2014 Inactive Lipitor 10 mg tablet RxNorm: 811295 1 Tablet(s) PO QHS 08/31/2014 Inactive baclofen 20 mg tablet RxNorm: 368443 1 Tablet(s) PO TID as needed 1 11/01/2013 10/26/2014 Inactive triamterene 75 mg-hydrochlorothiazide 50 mg tablet RxNorm: 3 64752 1 Tablet(s) PO QD 08/31/2014 02/26/2015 Inactive Klor-Con 8 mEq tablet,extended release RxNorm: 696212 1 Tablet( s) PO BID 08/31/2014 11/20/2014 Inactive baclofen 20 mg tablet RxNorm: 570848 1 Tablet(s) PO TID as needed 1 09/30/2013 10/25/2014 Inactive baclofen 20 mg tablet RxNorm: 985473 1 Tablet(s) PO TID as needed 1 09/30/2013 08/31/2014 Inactive omeprazole 40 mg capsule,delayed release RxNorm: 249796 1 Capsu le(s) PO QD 07/21/2014 07/23/2015 Inactive Flonase 50 mcg/actuation nasal spray,suspension RxNorm: 8963 23 1 [place] NASAL BID 07/15/2014 04/09/2017 Inactive hydrocodone 10 mg-acetaminophen 325 mg tablet RxNorm: 495565 1-2 Tablet(s) QID as needed for pain TAKE ONE TO TWO TABLETS BY MOUTH FOUR TIMES A DAY . MUST LAST 30 DAYS 06/30/2014 07/27/2014 Inactive (Response to an electronic controlled substance refill request - RxReferenceNumber: [id number]) baclofen 20 mg tablet RxNorm: 909436 1 Tablet(s) PO TID as needed 1 07/31/2014 Inactive Singulair 10 mg tablet RxNorm: 201104 1 Tablet(s) PO QD TAKE ONE TABLET BY MOUTH EVERY DAY 05/25/2014 11/20/2014 Inactive Bystolic 10 mg tablet RxNorm: 143209 TAKE ONE TABLET BY MOUTH E VERY MORNING 05/25/2014 09/21/2014 Inactive allopurinol 300 mg tablet RxNorm: 707862 1 Tablet(s) PO QD TAKE ONE TABLET BY MOUTH EVERY DAY 05/25/2014 10/21/2014 Inactive baclofen 20 mg tablet RxNorm: 213303 1 Tablet(s) PO TID as needed 0 05/25/2014 06/29/2014 Inactive allopurinol 300 mg tablet RxNorm: 536209 TAKE ONE TABLET BY LOPEZ TH EVERY DAY 05/25/2014 09/21/2014 Inactive Singulair 10 mg tablet RxNorm: 670904 1 Tablet(s) PO QD TAKE ONE TABLET BY MOUTH EVERY DAY 05/25/2014 05/24/2014 Inactive Bystolic 10 mg tablet RxNorm: 263982 1 Tablet(s) PO QAM TAKE ONE TABLET BY MOUTH EVERY MORNING 05/25/2014 10/21/2014 Inactive metolazone 2.5 mg tablet RxNorm: 085793 1 Tablet(s) PO QD as ne eded for edema 05/18/2014 04/25/2015 Inactive Lasix 40 mg tablet RxNorm: 665322 1 Tablet(s) PO QAM s ashley take potassium supplementation with this medication 05/14/2014 05/17/2014 Inactive hydrocodone 10 mg-acetaminophen 325 mg tablet RxNorm: 178839 1-2 Tablet(s) QID as needed for pain TAKE ONE TO TWO TABLETS BY MOUTH FOUR TIMES A DAY . MUST LAST 30 DAYS 05/07/2014 06/05/2014 Inactive (Response to an electronic controlled substance refill request - RxReferenceNumber: [id number]) alprazolam 0.5 mg tablet RxNorm: 943340 TAKE ONE TABLET BY MOUTH TWICE A DAY , MUST LAST 30 DAYS 05/07/2014 05/22/2016 Inactive (Response to a n electronic controlled substance refill request - RxReferenceNumber: [id number]) diclofenac sodium 75 mg tablet,delayed release RxNorm: 32684 6 1 Tablet(s) PO BID for pain 04/24/2014 07/20/2014 Inactive Celebrex 200 mg capsule RxNorm: 389411 TAKE ONE CAPSULE BY MOUT H EVERY DAY 04/24/2014 07/20/2014 Inactive alprazolam 0.5 mg tablet RxNorm: 736684 TAKE ONE TABLET BY MOUTH TWICE A DAY , MUST LAST 30 DAYS 03/24/2014 04/22/2014 Inactive (Response to a n electronic controlled substance refill request - RxReferenceNumber: [id number]) diclofenac sodium 75 mg tablet,delayed release RxNorm: 88832 6 1 Tablet(s) PO BID for pain 03/24/2014 04/24/2014 Inactive clonidine HCl 0.1 mg tablet RxNorm: 524526 1 Tablet(s) PO TID 03/2409/28/2014 Inactive replaces 0.2mg dose Klor-Con 8 mEq tablet,extended release RxNorm: 703440 1 Tablet( s) PO BID 02/26/2014 08/31/2014 Inactive diclofenac sodium 75 mg tablet,delayed release RxNorm: 78023 6 1 Tablet(s) PO BID for pain 02/25/2014 03/24/2014 Inactive hydrocodone 10 mg-acetaminophen 325 mg tablet RxNorm: 058326 1-2 Tablet(s) QID as needed for pain TAKE ONE TO TWO TABLETS BY MOUTH FOUR TIMES A DAY . MUST LAST 30 DAYS 02/25/2014 03/26/2014 Inactive (Response to an electronic controlled substance refill request - RxReferenceNumber: [id number]) alprazolam 0.5 mg tablet RxNorm: 563036 Tablet(s) PO BI D as needed for anxiety TAKE ONE TABLET BY MOUTH TWICE A DAY , MUST LAST 30 DAYS 02/25/2014 Inactive (Response to an electronic controlled [place] bstance refill request - RxReferenceNumber: [id number]) [AttnRPh: Saving apply/adjudicate RxGRP:SG20 RxBIN:[id number] RxPCN: ID#:[id number]] alprazolam 0.5 mg tablet RxNorm: 823724 Tablet(s) TAKE ONE TABLET BY MOUTH TWICE A DAY , MUST LAST 30 DAYS 01/27/2014 02/24/2014 Inactive (Respo nse to an electronic controlled substance refill request - RxReferenceNumber: [id number]) [AttnRPh: Saving apply/adjudicate RxGRP:SG20 RxBIN:[id number] RxPCN:HT ID#:[id number]] hydrocodone 10 mg-acetaminophen 325 mg tablet RxNorm: 737104 1-2 Tablet(s) QID as needed for pain TAKE ONE TO TWO TABLETS BY MOUTH FOUR TIMES A DAY . MUST LAST 30 DAYS 01/27/2014 02/24/2014 Inactive (Response to an electronic controlled substance refill request - RxReferenceNumber: [id number]) alprazolam 0.5 mg tablet RxNorm: 039257 TAKE ONE TABLET BY MOUTH TWICE A DAY , MUST LAST 30 DAYS 01/27/2014 01/26/2014 Inactive (Response to a n electronic controlled substance refill request - RxReferenceNumber: [id number]) Premarin 1.25 mg tablet RxNorm: 466565 1-2 Tablet(s) PO QD 01/28/20 14 07/25/2014 Inactive alprazolam 0.5 mg tablet RxNorm: 753411 TAKE ONE TABLET BY MOUTH TWICE A DAY , MUST LAST 30 DAYS 01/27/2014 01/27/2014 Inactive (Response to a n electronic controlled substance refill request - RxReferenceNumber: [id number]) hydrocodone 10 mg-acetaminophen 325 mg tablet RxNorm: 531160 TAKE ONE TO TWO TABLETS BY MOUTH FOUR TIMES A DAY . MUST LAST 30 DAYS 01/27/20142013 Inactive (Response to an electronic controlled [place] bstance refill request - RxReferenceNumber: [id number]) Celebrex 200 mg capsule RxNorm: 178419 1 Capsule(s) PO QD TAKE ONE CAPSULE BY MOUTH EVERY DAY 12/29/2013 04/27/2014 Inactive hydrocodone 10 mg-acetaminophen 325 mg tablet RxNorm: 412860 1-2 Tablet(s) PO QID as needed for severe pain 12/29/2013 01/27/2014 Inactive allopurinol 300 mg tablet RxNorm: 991999 1 Tablet(s) PO QD TAKE ONE TABLET BY MOUTH EVERY DAY 12/29/2013 05/24/2014 Inactive alprazolam 0.5 mg tablet RxNorm: 186603 TAKE ONE TABLET BY MOUTH TWICE A DAY , MUST LAST 30 DAYS 12/29/2013 01/27/2014 Inactive (Response to a n electronic controlled substance refill request - RxReferenceNumber: [id number]) Celebrex 200 mg capsule RxNorm: 564976 1 Capsule(s) PO QD TAKE ONE CAPSULE BY MOUTH EVERY DAY 12/29/2013 12/29/2013 Inactive Bystolic 10 mg tablet RxNorm: 345093 1 Tablet(s) PO QAM TAKE ONE TABLET BY MOUTH EVERY MORNING 12/29/2013 05/24/2014 Inactive Bystolic 10 mg tablet RxNorm: 909664 1 Tablet(s) PO QAM TAKE ONE TABLET BY MOUTH EVERY MORNING 12/29/2013 12/29/2013 Inactive Singulair 10 mg tablet RxNorm: 852519 1 Tablet(s) PO QD TAKE ONE TABLET BY MOUTH EVERY DAY 12/29/2013 05/25/2014 Inactive hydrocodone 10 mg-acetaminophen 325 mg tablet RxNorm: 991572 TAKE ONE TO TWO TABLETS BY MOUTH FOUR TIMES A DAY . MUST LAST 30 DAYS 12/29/20132013 Inactive (Response to an electronic controlled [place] bstance refill request - RxReferenceNumber: [id number]) Trazadone 75mg Tablet RxNorm: 1 Tablet(s) PO QHS as needed 03/23/2014 Inactive Trazadone 75mg Tablet RxNorm: 1 Tablet(s) PO QHS 12/24/20132014 Inactive Soma 350 mg tablet RxNorm: 539322 Tablet(s) PO TAKE ON E TABLET BY MOUTH THREE TIMES A DAY NEEDED FOR MUSCLE SPASMS. THIS MUST LAST 30 DAYS BETWEEN REFILLS. 12/10/2013 12/22/2013 Inactive (Appended: Cont rolled substance eRx refill - RxReferenceNumber: [id number]) diclofenac sodium 75 mg tablet,delayed release RxNorm: 34991 6 1 Tablet(s) PO BID for pain 12/10/2013 02/24/2014 Inactive allopurinol 300 mg tablet RxNorm: 104258 1 Tablet(s) PO QD 11/20/19 14 12/29/2013 Inactive alprazolam 0.5 mg tablet RxNorm: 292882 2 Tablet(s) PO BID 11/13/19 14 12/29/2013 Inactive prn clonidine 0.1 mg tablet RxNorm: 593505 1 Tablet(s) PO TID 11/12/2013 02/09/2014 Inactive replaces 0.2mg dose Klor-Con M20 mEq tablet,extended release RxNorm: 898609 2 Tablet(s) PO BID to use with lasix 11/12/2013 05/10/2014 Inactive Singulair 10 mg tablet RxNorm: 759127 1 Tablet(s) PO QD 11/12/2013 Inactive hydrocodone 10 mg-acetaminophen 325 mg tablet RxNorm: 547703 1-2 Tablet(s) PO QID as needed for severe pain 11/12/2013 12/28/2013 Inactive Bystolic 10 mg tablet RxNorm: 394913 1 Tablet(s) PO QAM 11/12/2013 Inactive Soma 350 mg tablet RxNorm: 658554 Tablet(s) PO TAKE ON E TABLET BY MOUTH THREE TIMES A DAY NEEDED FOR MUSCLE SPASMS. THIS MUST LAST 30 DAYS BETWEEN REFILLS. 10/13/2013 12/10/2013 Inactive (Appended: Cont rolled substance eRx refill - RxReferenceNumber: [id number]) hydrocodone 10 mg-acetaminophen 325 mg tablet RxNorm: 210278 1-2 Tablet(s) PO QID as needed for severe pain 10/03/2013 11/11/2013 Inactive diclofenac sodium 75 mg tablet,delayed release RxNorm: 56235 8 1 Tablet(s) PO BID for pain 09/11/2013 12/10/2013 Inactive alprazolam 0.5 mg tablet RxNorm: 256223 1 Tablet(s) PO BID May refill on 04/26/13 09/01/2013 10/30/2013 Inactive prn hydrocodone 10 mg-acetaminophen 325 mg tablet RxNorm: 285717 1-2 Tablet(s) PO QID as needed for severe pain 09/01/2013 10/02/2013 Inactive triamterene 75 mg-hydrochlorothiazide 50 mg tablet RxNorm: 3 77574 1 Tablet(s) PO QD 08/04/2013 08/31/2014 Inactive cyclobenzaprine 10 mg tablet RxNorm: 962411 1 Tablet(s) PO TID prn spasm 08/04/2013 08/13/2013 Inactive clonidine 0.1 mg tablet RxNorm: 414451 1 Tablet(s) PO TID 08/04/2013 11/11/2013 Inactive replaces 0.2mg dose cyclobenzaprine 10 mg tablet RxNorm: 921622 1 Tablet(s) PO TID prn spasm 07/23/2013 08/01/2013 Inactive hydrocodone 10 mg-acetaminophen 325 mg tablet RxNorm: 150412 2 1-2 Tablet(s) PO QID as needed for severe pain 06/09/2013 08/07/2013 Inactive Singulair 10 mg tablet RxNorm: 275023 1 Tablet(s) PO QD 05/29/2013 Inactive Klor-Con 8 mEq tablet,extended release RxNorm: 561926 1 Tablet( s) PO BID 05/29/2013 02/26/2014 Inactive allopurinol 300 mg tablet RxNorm: 960625 1 Tablet(s) PO QD 05/29/20 13 11/19/2013 Inactive Bystolic 10 mg tablet RxNorm: 011191 1 Tablet(s) PO QAM take one daily in the morning. 05/29/2013 11/11/2013 Inactive scopolamine 1.5 mg 72 hr Transderm Patch RxNorm: 910602 Application TD Q72H for motion sickness 05/26/2013 07/22/2013 Inactive Soma 350 mg tablet RxNorm: 568527 1 Tablet(s) PO TID as needed for spasm 05/19/2013 10/13/2013 Inactive diclofenac sodium 75 mg tablet,delayed release RxNorm: 12910 8 1 Tablet(s) PO BID for pain 05/14/2013 07/22/2013 Inactive allopurinol 300 mg tablet RxNorm: 460604 1 Tablet(s) PO QD 04/25/2005/28/2013 Inactive alprazolam 0.5 mg tablet RxNorm: 216325 1 Tablet(s) PO BID May refill on 04/26/13 04/25/2013 06/23/2013 Inactive prn Celebrex 200 mg capsule RxNorm: 659828 1 Capsule(s) PO QD 04/16/2013 12/29/2013 Inactive alprazolam 0.5 mg tablet RxNorm: 832677 1 Tablet(s) PO BID May refill on 04/26/13 04/16/2013 04/24/2013 Inactive prn Soma 350 mg tablet RxNorm: 325896 1 Tablet(s) PO TID as needed for spasm 04/16/2013 No Stop Date Active Lasix 40 mg tablet RxNorm: 543957 1 Tablet(s) PO QAM s hould take potassium supplementation with this medication 04/16/2013 06/14/2013 Inactive clonidine 0.1 mg tablet RxNorm: 457988 1 Tablet(s) PO TID 04/16/2013 08/03/2013 Inactive replaces 0.2mg dose prednisone 20 mg tablet RxNorm: 388341 1 Tablet(s) PO BID 04/16/2013 04/20/2013 Inactive diclofenac sodium 75 mg tablet,delayed release RxNorm: 26104 8 1 Tablet(s) PO BID for pain 04/14/2013 05/13/2013 Inactive hydrocodone 10 mg-acetaminophen 325 mg tablet RxNorm: 455394 2 1-2 Tablet(s) PO QID as needed for severe pain 04/14/2013 No Stop Date Active Lasix 40 mg tablet RxNorm: 605810 1 Tablet(s) PO QAM alan ramirez take potassium supplementation with this medication 03/31/2013 04/15/2013 Inactive Celebrex 200 mg capsule RxNorm: 695431 1 Capsule(s) PO QD 03/31/2013 04/15/2013 Inactive alprazolam 0.5 mg tablet RxNorm: 871741 1 Tablet(s) PO BID 03/28/20 13 04/15/2013 Inactive prn hydrocodone 10 mg-acetaminophen 325 mg tablet RxNorm: 414514 2 1-2 Tablet(s) PO QID as needed for severe pain 03/10/2013 No Stop Date Active metformin ER 500 mg 24 hr tablet,extended release RxNorm: 86 1018 1 Tablet(s) PO QD 03/06/2013 07/22/2013 Inactive clindamycin 300 mg capsule RxNorm: 800502 2 Capsule(s) PO TID 03/0503/14/2013 Inactive Zaroxolyn 2.5 mg tablet RxNorm: 292790 1 Tablet(s) PO QAM 03/05/2013 05/19/2015 Inactive amlodipine 10 mg tablet RxNorm: 215229 1 Tablet(s) PO QD 03/03/2013 0 05/25/2013 Inactive Norvasc 10 mg tablet RxNorm: 967287 1 Tablet(s) PO QD 02/28/201307/11 Inactive Celebrex 200 mg capsule RxNorm: 956775 1 Capsule(s) PO QD 02/28/2013 03/30/2013 Inactive diclofenac sodium 75 mg tablet,delayed release RxNorm: 15291 8 1 Tablet(s) PO BID for pain 02/14/2013 03/15/2013 Inactive Soma 350 mg tablet RxNorm: 062260 1 Tablet(s) PO TID as needed for spasm 02/14/2013 No Stop Date Active hydrocodone 10 mg-acetaminophen 325 mg tablet RxNorm: 868979 2 1-2 Tablet(s) PO QID as needed for severe pain 02/14/2013 No Stop Date Active Norvasc 10 mg tablet RxNorm: 504315 1 Tablet(s) PO QD 02/10/201302/09 Inactive Celebrex 200 mg capsule RxNorm: 733191 1 Capsule(s) PO QD 01/27/2013 01/26/2013 Inactive Premarin 1.25 mg tablet RxNorm: 098767 1-2 Tablet(s) PO QD 01/28/20 13 06/25/2013 Inactive alprazolam 0.5 mg tablet RxNorm: 095213 1 Tablet(s) PO BID 01/28/20 13 02/25/2013 Inactive prn amlodipine 5 mg tablet RxNorm: 317834 1 Tablet(s) PO QD 01/27/2013 Inactive Celebrex 200 mg capsule RxNorm: 150191 1 Capsule(s) PO QD 01/27/2013 02/27/2013 Inactive gabapentin 600 mg tablet RxNorm: 800644 1 Tablet(s) PO QHS 01/16/20 13 07/22/2013 Inactive Soma 350 mg tablet RxNorm: 753378 1 Tablet(s) PO TID as needed for spasm 01/15/2013 No Stop Date Active hydrocodone 10 mg-acetaminophen 325 mg tablet RxNorm: 384170 2 1-2 Tablet(s) PO QID as needed for severe pain 01/15/2013 No Stop Date Active Soma 350 mg tablet RxNorm: 857323 1 Tablet(s) PO TID as needed for spasm 01/13/2013 No Stop Date Active alprazolam 0.5 mg tablet RxNorm: 210985 1 Tablet(s) PO BID 12/31/19 13 01/26/2013 Inactive prn diclofenac sodium 75 mg tablet,delayed release RxNorm: 08716 8 1 Tablet(s) PO BID for pain 12/09/2012 01/07/2013 Inactive gabapentin 600 mg tablet RxNorm: 510563 1 Tablet(s) PO QHS 12/10/19 13 01/07/2013 Inactive hydrocodone 10 mg-acetaminophen 325 mg tablet RxNorm: 853334 2 1-2 Tablet(s) PO QID as needed for severe pain 12/02/2012 No Stop Date Active Levaquin 750 mg tablet RxNorm: 418102 1 Tablet(s) PO QD 11/21/2012 Inactive Singulair 10 mg tablet RxNorm: 937141 1 Tablet(s) PO QD 11/11/2012 Inactive clonidine 0.2 mg tablet RxNorm: 726924 1 Tablet(s) PO TID 11/11/2012 04/15/2013 Inactive alprazolam 0.5 mg tablet RxNorm: 209311 1 Tablet(s) PO BID 11/12/19 13 12/10/2012 Inactive prn Klor-Con 8 mEq tablet,extended release RxNorm: 190186 1 Tablet( s) PO BID 11/11/2012 03/04/2013 Inactive hydrocodone 10 mg-acetaminophen 325 mg tablet RxNorm: 592616 2 1-2 Tablet(s) PO QID as needed for severe pain 11/06/2012 No Stop Date Active alprazolam 0.5 mg tablet RxNorm: 336360 1 Tablet(s) PO BID 10/15/19 13 11/10/2012 Inactive prn hydrocodone-acetaminophen 10 mg-325 mg tablet RxNorm: 160042 2 1-2 Tablet(s) PO QID as needed for severe pain 10/10/2012 10/09/2012 Inactive allopurinol 300 mg tablet RxNorm: 727296 1 Tablet(s) PO QD 09/20/19 13 12/18/2012 Inactive alprazolam 0.5 mg tablet RxNorm: 175560 1 Tablet(s) PO BID 09/17/19 13 10/14/2012 Inactive prn hydrocodone-acetaminophen 10 mg-325 mg tablet RxNorm: 612469 2 1-2 Tablet(s) PO QID as needed for severe pain 08/22/2012 08/21/2012 Inactive Norvasc 10 mg tablet RxNorm: 602488 1 Tablet(s) PO QD 08/12/201201/10 Inactive Premarin 1.25 mg tablet RxNorm: 529798 1-2 Tablet(s) PO QD 07/30/20 12 12/26/2012 Inactive alprazolam 0.5 mg tablet RxNorm: 291666 1 Tablet(s) PO BID 07/29/20 12 08/27/2012 Inactive prn Klor-Con 8 mEq tablet,extended release RxNorm: 028602 1 Tablet( s) PO BID 07/29/2012 11/10/2012 Inactive hydrocodone-acetaminophen 10 mg-325 mg tablet RxNorm: 956913 2 1-2 Tablet(s) PO QID as needed for severe pain 07/29/2012 No Stop Date Active Premarin 1.25 mg tablet RxNorm: 352308 1-2 Tablet(s) PO QD 07/29/20 12 07/29/2012 Inactive clonidine 0.2 mg tablet RxNorm: 247358 1 Tablet(s) PO TID 07/29/2012 10/28/2012 Inactive ketorolac 10 mg tablet RxNorm: 723841 1 Tablet(s) PO QID prn he adache 07/18/2012 No Stop Date Active hydrocodone-acetaminophen 10 mg-325 mg tablet RxNorm: 164424 2 1-2 Tablet(s) PO QID as needed for severe pain 07/03/2012 No Stop Date Active amlodipine 5 mg tablet RxNorm: 669111 1 Tablet(s) PO QD 07/02/2012 Inactive allopurinol 300 mg tablet RxNorm: 460523 1 Tablet(s) PO QD 07/02/2009/19/2012 Inactive Celebrex 200 mg capsule RxNorm: 399683 1 Capsule(s) PO QD for j oint pain 06/26/2012 10/23/2012 Inactive diclofenac sodium 75 mg tablet,delayed release RxNorm: 65207 8 1 Tablet(s) PO BID for pain 06/19/2012 09/16/2012 Inactive hydrocodone-acetaminophen 10 mg-325 mg tablet RxNorm: 932085 2 1-2 Tablet(s) PO QID as needed for severe pain 06/10/2012 No Stop Date Active alprazolam 0.5 mg tablet RxNorm: 500996 1 Tablet(s) PO BID 06/03/20 12 07/02/2012 Inactive prn ketorolac 10 mg tablet RxNorm: 073905 1 Tablet(s) PO Q8H 05/27/2012 0 01/21/2019 Inactive as needed for headache hydrocodone-acetaminophen 10 mg-325 mg tablet RxNorm: 044369 2 1-2 Tablet(s) PO QID as needed for severe pain 05/15/2012 No Stop Date Active allopurinol 300 mg tablet RxNorm: 513248 1 Tablet(s) PO QD 05/14/20 12 06/12/2012 Inactive allopurinol 300 mg tablet RxNorm: 080938 1 Tablet(s) PO QD 05/14/2005/13/2012 Inactive amlodipine 5 mg tablet RxNorm: 804469 1 Tablet(s) PO QD 05/01/2012 Inactive amlodipine 5 mg Tab RxNorm: 407650 1 Tablet(s) PO QD 05/01/201204/30 Inactive Celebrex 200 mg capsule RxNorm: 858101 1 Capsule(s) PO QD for j oint pain 05/01/2012 06/25/2012 Inactive Singulair 10 mg tablet RxNorm: 665615 1 Tablet(s) PO QD 05/01/2012 Inactive alprazolam 0.5 mg tablet RxNorm: 659137 1 Tablet(s) PO BID 05/01/20 12 05/30/2012 Inactive prn Celebrex 200 mg Cap RxNorm: 442787 1 Capsule(s) PO QD for joint radu n 05/01/2012 04/30/2012 Inactive hydrocodone-acetaminophen 10 mg-325 mg tablet RxNorm: 778430 2 1-2 Tablet(s) PO QID as needed for severe pain 04/19/2012 No Stop Date Active Lasix 40 mg tablet RxNorm: 218440 1 Tablet(s) PO CORTEZM alan rajwinderuld take potassium supplementation with this medication 04/05/2012 06/03/2012 Inactive alprazolam 0.5 mg Tab RxNorm: 668365 1 Tablet(s) PO BID 04/05/2012 Inactive prn hydrocodone-acetaminophen 10 mg-325 mg Tab RxNorm: 2242239 1-2 Tablet(s) PO QID as needed for severe pain 03/25/2012 03/24/2012 Inactive clonidine 0.2 mg Tab RxNorm: 822295 1 Tablet(s) PO TID 03/08/2012 Inactive alprazolam 0.5 mg Tab RxNorm: 863714 1 Tablet(s) PO BID 03/08/2012 Inactive prn Soma 350 mg tablet RxNorm: 123905 1 Tablet(s) PO TID for spasm 02/0903/18/2012 Inactive clonidine 0.2 mg tablet RxNorm: 690399 1 Tablet(s) PO TID 03/08/2012 07/28/2012 Inactive Celebrex 200 mg Cap RxNorm: 131858 1 Capsule(s) PO QD for joint radu n 03/01/2012 04/29/2012 Inactive amlodipine 5 mg Tab RxNorm: 730623 1 Tablet(s) PO QD 02/26/201202/24 Inactive amlodipine 5 mg Tab RxNorm: 860160 1 Tablet(s) PO QD 02/26/201204/25 Inactive Bactroban 2 % Ointment RxNorm: 444891 Application TOP QID to sores 02/23/2012 No Stop Date Active amlodipine 2.5 mg tablet RxNorm: 302820 1 Tablet(s) PO QHS 02/20/20 12 02/25/2012 Inactive doxycycline hyclate 100 mg Cap RxNorm: 0933299 1 Capsule(s) PO BID 02/20/2012 02/29/2012 Inactive hydrocodone-acetaminophen 10 mg-325 mg Tab RxNorm: 9992861 1-2 T ablet(s) PO QID 02/08/2012 No Stop Date Active alprazolam 0.5 mg Tab RxNorm: 053801 1 Tablet(s) PO BID 02/08/2012 Inactive prn Singulair 10 mg Tab RxNorm: 755751 1 Tablet(s) PO QD 02/08/201204/30 Inactive Soma 350 mg Tab RxNorm: 676884 1 Tablet(s) PO TID for spasm 012 03/07/2012 Inactive Soma 350 mg Tab RxNorm: 874838 1 Tablet(s) PO TID for spasm 012 02/05/2012 Inactive diclofenac sodium 75 mg tablet,delayed release RxNorm: 65614 8 1 Tablet(s) PO BID for pain 02/01/2012 03/18/2012 Inactive Celebrex 200 mg Cap RxNorm: 507428 1 Capsule(s) PO QD for joint radu n 01/30/2012 02/28/2012 Inactive Lasix 40 mg Tab RxNorm: 797179 1 Tablet(s) PO QAM 01/24/2012 03/18/20 12 Inactive potassium chloride ER 20 mEq tablet,extended release(part/cr yst) RxNorm: 039579 2 Tablet(s) PO BID 01/24/2012 02/22/2012 Inactive alprazolam 0.5 mg Tab RxNorm: 347874 1 Tablet(s) PO BID 01/11/2012 Inactive prn hydrocodone-acetaminophen 10 mg-325 mg Tab RxNorm: 1722116 1-2 T ablet(s) PO QID 01/11/2012 No Stop Date Active Ambien 10 mg Tab RxNorm: 142193 1 Tablet(s) PO QHS 01/11/2012 012 Inactive Klor-Con 8 mEq Tab RxNorm: 950431 1 Tablet(s) PO BID 01/11/201201/22 Inactive diclofenac sodium 75 mg Tab, Delayed Release RxNorm: 090048 1 Tablet(s) PO BID for pain 01/10/2012 01/31/2012 Inactive Ambien 10 mg Tab RxNorm: 118434 1 Tablet(s) PO QHS 12/11/2011 012 Inactive alprazolam 0.5 mg Tab RxNorm: 744683 1 Tablet(s) PO BID 12/11/2011 Inactive prn hydrocodone 10 mg-acetaminophen 325 mg tablet RxNorm: 734883 1-2 Tablet(s) PO TID 11/28/2011 No Stop Date Active as needed for pa in - Previous quantity #240, will start dosing for #180 in April 2011 per Doctor Td. Ambien 10 mg Tab RxNorm: 213929 1 Tablet(s) PO QHS 11/09/2011 012 Inactive alprazolam 0.5 mg Tab RxNorm: 116104 1 Tablet(s) PO BID 11/09/2011 Inactive prn hydrocodone-acetaminophen 10 mg-325 mg Tab RxNorm: 9105374 1-2 T ablet(s) PO TID 11/06/2011 No Stop Date Active as needed for pain - Previous quantity #240, will start dosing for #180 in April 2011 per Doctor Td. Singulair 10 mg Tab RxNorm: 770524 1 Tablet(s) PO QD 10/13/201110/12 Inactive Singulair 10 mg Tab RxNorm: 331078 1 Tablet(s) PO QD 10/13/201102/06 Inactive hydrocodone-acetaminophen 10 mg-325 mg Tab RxNorm: 8353278 1-2 T ablet(s) PO TID 10/10/2011 10/09/2011 Inactive as needed for pain - Previous quantity #240, will start dosing for #180 in April 2011 per Doctor Td. hydrocodone-acetaminophen 10 mg-325 mg Tab RxNorm: 4901788 1-2 T ablet(s) PO TID 10/09/2011 No Stop Date Active as needed for pain - Previous quantity #240, will start dosing for #180 in April 2011 per Doctor Td. Klor-Con 8 mEq Tab RxNorm: 812069 1 Tablet(s) PO BID 10/02/201101/09 Inactive triamterene 75 mg-hydrochlorothiazide 50 mg tablet RxNorm: 3 78485 1 Tablet(s) PO QD 09/14/2011 03/06/2013 Inactive Ambien 10 mg Tab RxNorm: 772994 1 Tablet(s) PO QHS 09/14/2011 012 Inactive hydrocodone-acetaminophen 10 mg-325 mg Tab RxNorm: 7070478 1-2 T ablet(s) PO TID 09/14/2011 No Stop Date Active as needed for pain - Previous quantity #240, will start dosing for #180 in April 2011 per Doctor Td. alprazolam 0.5 mg Tab RxNorm: 600136 1 Tablet(s) PO BID 09/14/2011 Inactive prn Zithromax 500 mg Tab RxNorm: 663264 1 Tablet(s) PO QD 09/13/201109/10 Inactive prednisone 20 mg Tab RxNorm: 449821 1 Tablet(s) PO BID 08/31/2011 Inactive Ambien 10 mg Tab RxNorm: 510963 1 Tablet(s) PO QHS 08/17/2011 011 Inactive hydrocodone-acetaminophen 10 mg-325 mg Tab RxNorm: 2821554 1-2 T ablet(s) PO TID 08/17/2011 No Stop Date Active as needed for pain - Previous quantity #240, will start dosing for #180 in April 2011 per Doctor Td. clonidine 0.2 mg Tab RxNorm: 734818 1 Tablet(s) PO TID 08/17/201112/2011 Inactive Ambien 10 mg Tab RxNorm: 439475 1 Tablet(s) PO QHS 08/17/2011 019 Inactive alprazolam 0.5 mg Tab RxNorm: 765579 1 Tablet(s) PO BID 08/17/2011 Inactive prn hydrocodone-acetaminophen 10 mg-325 mg Tab RxNorm: 1071167 1-2 T ablet(s) PO TID 08/17/2011 08/16/2011 Inactive as needed for pain - Previous quantity #240, will start dosing for #180 in April 2011 per Doctor Td. Singulair 10 mg Tab RxNorm: 321983 1 Tablet(s) PO QD 08/17/201108/16 Inactive Klor-Con 8 mEq Tab RxNorm: 025072 1 Tablet(s) PO QD 08/17/20112011 Inactive alprazolam 0.5 mg Tab RxNorm: 910070 1 Tablet(s) PO BID 07/20/2011 Inactive prn Ambien 10 mg Tab RxNorm: 371652 1 Tablet(s) PO QHS 07/20/2011 012 Inactive Singulair 10 mg Tab RxNorm: 252308 1 Tablet(s) PO QD 07/20/201107/19 Inactive Premarin 1.25 mg tablet RxNorm: 172837 2 Tablet(s) PO QD 07/20/2011 0 01/21/2019 Inactive Premarin 1.25 mg tablet RxNorm: 869805 1-2 Tablet(s) PO QD 07/20/20 11 12/16/2011 Inactive Premarin 1.25 mg Tab RxNorm: 823657 1-2 Tablet(s) PO QD 07/06/2011 Inactive alprazolam 0.5 mg Tab RxNorm: 487630 1 Tablet(s) PO BID 06/22/2011 Inactive prn alprazolam 0.5 mg Tab RxNorm: 399586 1 Tablet(s) PO BID 06/22/2011 Inactive prn Premarin 1.25 mg Tab RxNorm: 370715 1 Tablet(s) PO QD m ay do 90 day fill if desired 06/22/2011 07/05/2011 Inactive hydrocodone-acetaminophen 10 mg-325 mg Tab RxNorm: 9245943 1-2 T ablet(s) PO TID 06/22/2011 No Stop Date Active as needed for pain - Previous quantity #240, will start dosing for #180 in April 2011 per Doctor Td. clonidine 0.2 mg Tab RxNorm: 352713 1 Tablet(s) PO TID 05/25/201103/2011 Inactive triamterene-hydrochlorothiazide 75 mg-50 mg Tab RxNorm: 3108 18 1 Tablet(s) PO QD 05/25/2011 09/13/2011 Inactive alprazolam 0.5 mg Tab RxNorm: 327771 1 Tablet(s) PO BID 05/25/2011 Inactive prn hydrocodone-acetaminophen 10 mg-325 mg Tab RxNorm: 4383018 1-2 T ablet(s) PO TID 05/25/2011 No Stop Date Active as needed for pain - Previous quantity #240, will start dosing for #180 in April 2011 per Doctor Td. Robaxin-750 750 mg Tab RxNorm: 455466 2 Tablet(s) PO QHS 05/22/2011 1 Inactive prn spasm hydrocodone-acetaminophen 10 mg-325 mg Tab RxNorm: 2232642 1-2 T ablet(s) PO TID 04/26/2011 No Stop Date Active as needed for pain - Previous quantity #240, will start dosing for #180 in April 2011 per Doctor Td. alprazolam 0.5 mg Tab RxNorm: 787917 1 Tablet(s) PO BID 04/25/2011 Inactive prn Klor-Con 8 mEq Tab RxNorm: 897352 1 Tablet(s) PO QD 03/30/20112010 Inactive Klor-Con 8 mEq Tab RxNorm: 335309 1 Tablet(s) PO QD 03/29/20112010 Inactive hydrocodone-acetaminophen 10 mg-325 mg Tab RxNorm: 0247467 1-2 T ablet(s) PO TID 03/20/2011 04/25/2011 Inactive as needed for pain - Previous quantity #240, will start dosing for #180 in April 2011 per Doctor Td. alprazolam 0.5 mg Tab RxNorm: 006423 1 Tablet(s) PO BID prn 011 03/30/2011 Inactive Ambien 10 mg Tab RxNorm: 321559 1 Tablet(s) PO QHS 03/01/2011 011 Inactive cyclobenzaprine 10 mg Tab RxNorm: 442012 1 Tablet(s) PO TID 011 03/18/2012 Inactive cyclobenzaprine 10 mg Tab RxNorm: 012959 1 Tablet(s) PO TID 011 01/08/2011 Inactive cyclobenzaprine 10 mg Tab RxNorm: 177424 1 Tablet(s) PO TID 011 12/20/2010 Inactive terbinafine 250 mg Tab RxNorm: 746647 1 Tablet(s) PO QD 12/12/2010 Inactive triamterene-hydrochlorothiazide 75 mg-50 mg Tab RxNorm: 3108 18 1 Tablet(s) PO QD 12/07/2010 06/04/2011 Inactive Klor-Con 8 8 mEq Tab RxNorm: 639990 1 Tablet(s) PO QD 12/07/201001/08 Inactive Premarin 1.25 mg Tab RxNorm: 816396 2 Tablet(s) PO QD 12/07/201001/08 Inactive clonidine 0.2 mg Tab RxNorm: 817362 1 Tablet(s) PO TID 12/07/2010 Inactive hydrocodone-acetaminophen 7.5 mg-650 mg Tab RxNorm: 901587 1 Ta blet(s) PO Q4H 12/05/2010 01/21/2019 Inactive hydrocodone-acetaminophen 7.5 mg-650 mg Tab RxNorm: 140998 1 Ta blet(s) PO Q4H 10/26/2010 11/14/2010 Inactive hydrocodone-acetaminophen 7.5 mg-650 mg Tab RxNorm: 390434 1 Ta blet(s) PO Q4H 10/13/2010 10/25/2010 Inactive hydrocodone-acetaminophen 7.5 mg-650 mg Tab RxNorm: 448643 1 Ta blet(s) PO Q4H 09/15/2010 09/12/2010 Inactive alprazolam 0.5 mg Tab RxNorm: 252191 1 Tablet(s) PO BID prn 011 09/12/2010 Inactive terbinafine 250 mg Tab RxNorm: 524549 1 Tablet(s) PO QD 09/05/2010 Inactive hydrocodone-acetaminophen 7.5 mg-650 mg Tab RxNorm: 730642 1 Ta blet(s) PO Q4H 08/29/2010 09/17/2010 Inactive alprazolam 0.5 mg Tab RxNorm: 567451 1 Tablet(s) PO BID prn 010 09/27/2010 Inactive alprazolam 0.5 mg Tab RxNorm: 251643 1 Tablet(s) PO BID prn 09/06/2010 Inactive Klor-Con 8 mEq Tab RxNorm: 485289 1 Tablet(s) PO QD 08/08/20102010 Inactive hydrocodone-acetaminophen 7.5 mg-650 mg Tab RxNorm: 991802 1 Ta blet(s) PO Q4H 08/08/2010 08/27/2010 Inactive Ambien 10 mg Tab RxNorm: 277820 1 Tablet(s) PO QHS 08/08/2010 Inactive clonidine 0.2 mg Tab RxNorm: 924844 1 Tablet(s) PO TID 08/08/2010 Inactive Premarin 1.25 mg Tab RxNorm: 481667 2 Tablet(s) PO QD 08/08/201009/12 Inactive Ambien 10 mg Tab RxNorm: 420654 1 Tablet(s) PO QHS 07/18/2010 Inactive alprazolam 0.5 mg Tab RxNorm: 732128 1 Tablet(s) PO BID prn 08/07/2010 Inactive hydrocodone-acetaminophen 7.5 mg-650 mg Tab RxNorm: 052182 1 Ta blet(s) PO Q4H 07/12/2010 07/31/2010 Inactive clonidine 0.2 mg Tab RxNorm: 088271 1 Tablet(s) PO TID 06/20/2010 Inactive terbinafine 250 mg Tab RxNorm: 187177 1 Tablet(s) PO QD 05/24/2010 Inactive Clonidine 0.2 mg Tab RxNorm: 090745 1 Tablet(s) PO TID 05/24/201006/2010 Inactive Ambien 10 mg Tab RxNorm: 354626 1 Tablet(s) PO QHS 05/24/2010 010 Inactive alprazolam 0.5 mg Tab RxNorm: 932035 1 Tablet(s) PO BID 05/24/2010 Inactive Klor-Con 8 mEq Tab RxNorm: 714424 1 Tablet(s) PO QD 05/24/20102009 Inactive alprazolam 0.5 mg Tab RxNorm: 487747 2 Tablet(s) PO QD prn 05/24/2007/17/2010 Inactive triamterene-hydrochlorothiazide 75 mg-50 mg Tab RxNorm: 3108 18 1 Tablet(s) PO QD 05/24/2010 11/19/2010 Inactive Ambien 10 mg Tab RxNorm: 566408 1 Tablet(s) PO QHS 05/23/2010 010 Inactive Alprazolam 0.5 mg Tab RxNorm: 909045 2 Tablet(s) PO QD prn 05/23/2005/23/2010 Inactive Premarin 1.25 mg Tab RxNorm: 893518 2 Tablet(s) PO QD 05/19/201007/12 Inactive Hydrocodone-Acetaminophen 7.5 mg-650 mg Tab RxNorm: 204109 1 Ta blet(s) PO Q4H 05/19/2010 03/20/2011 Inactive Prednisone 20 mg Tab RxNorm: 192228 1 Tablet(s) PO BID 05/17/2010 Inactive Prednisone 20 mg Tab RxNorm: 643213 1 Tablet(s) PO BID 05/06/201001/2010 Inactive Premarin 1.25 mg Tab RxNorm: 607885 Tablet(s) PO 2 M-W-F, and 1 Lg-Ug-Dnh-Sun 05/05/2010 08/02/2010 Inactive Premarin 1.25 mg Tab RxNorm: 167118 Tablet(s) PO 2 M-W-F, and 1 Ff-Ok-Jpt-Sun 05/04/2010 05/04/2010 Inactive Premarin 1.25 mg Tab RxNorm: 225555 Tablet(s) PO 2 M-W-F, and 1 Dc-Cr-OtiSun 05/04/2010 05/03/2010 Inactive Prednisone 20 mg Tab RxNorm: 266659 1 Tablet(s) PO BID 04/27/2010 Inactive Alprazolam 0.5 mg Tab RxNorm: 552800 2 Tablet(s) PO QD prn 04/26/20 10 05/22/2010 Inactive Clindamycin 300 mg Cap RxNorm: 797408 2 Capsule(s) PO TID 04/05/2010 04/18/2010 Inactive Terbinafine 250 mg Tab RxNorm: 901393 1 Tablet(s) PO QD 04/04/2010 Inactive Hydrocodone-Acetaminophen 7.5 mg-650 mg Tab RxNorm: 066266 1 Ta blet(s) PO Q4H 03/30/2010 04/18/2010 Inactive Avelox 400 mg Tab RxNorm: 146176 1 Tablet(s) PO QD 03/09/2010 010 Inactive Hydrocodone-Acetaminophen 7.5 mg-650 mg Tab RxNorm: 586362 1 Ta blet(s) PO Q4H 03/08/2010 03/27/2010 Inactive Alprazolam 0.5 mg Tab RxNorm: 238083 2 Tablet(s) PO QD prn 03/08/20 10 04/25/2010 Inactive Klor-Con 8 mEq Tab RxNorm: 898218 1 Tablet(s) PO QD when takes lasi x 03/07/2010 09/29/2019 Inactive Premarin 1.25 mg Tab RxNorm: 058778 1 Tablet(s) PO QD 03/03/201003/11 Inactive Alprazolam 0.5 mg Tab RxNorm: 376669 1 Tablet(s) PO BID PRN 010 No Stop Date Active triamterene-hydrochlorothiazide 75 mg-50 mg Tab RxNorm: 3108 18 1 Tablet(s) PO QD 02/09/2010 02/03/2011 Inactive Hydrocodone-Acetaminophen 10 mg-750 mg Tab RxNorm: 684290 1 Tablet(s) PO Q4H PRN 02/09/2010 03/20/2011 Inactive Clonidine 0.2 mg Tab RxNorm: 731969 1 Tablet(s) PO TID 01/13/201009/2009 Inactive Alprazolam 0.5 mg Tab RxNorm: 788358 1 Tablet(s) PO BID PRN 010 01/12/2010 Inactive Hydrocodone-Acetaminophen 10 mg-750 mg Tab RxNorm: 911839 1 Tablet(s) PO Q4H PRN 01/13/2010 01/12/2010 Inactive ANGELIQ 1 mg-0.5 mg Tab RxNorm: 5349714 1 Tablet(s) PO QD 12/27/2009 01/23/2010 Inactive Lasix 40 mg Tab RxNorm: 850513 1 Tablet(s) PO QAM 12/14/2009 06/11/20 10 Inactive Vitamin B12 1000mcg Tablet RxNorm: 1 Tablet(s) PO QD No Start Date Active cyclobenzaprine 10 mg tablet RxNorm: 924569 1 Tablet(s) PO TID as needed DO NOT USE WITH BACLOFEN No Start Date Active Vitamin D 5,000 unit Tab RxNorm: 1 Tablet(s) PO QD No Start Date Active vitamin E (dl, acetate) 400 unit Cap RxNorm: 252274 1 Capsule(s ) PO QD No Start Date Active Benadryl 25 mg Cap RxNorm: 9529849 Capsule(s) PO PRN No Start Date Inactive amitriptyline 100 mg tablet RxNorm: 257218 1 Tablet(s) PO QHS No St art Date 11/27/2016 Inactive Zithromax Z-Dustin 250 mg tablet RxNorm: 466703 Tablet(s) PO as di rected No Start Date 07/22/2013 Inactive Klor-Con 8 mEq tablet,extended release RxNorm: 420107 1 Tablet( s) PO BID No Start Date 07/28/2012 Inactive scopolamine 1.5 mg 72 hr Transderm Patch RxNorm: 401847 Application TD Q72H for motion sickness No Start Date 05/25/2013 Inactive Klonopin 1 mg tablet RxNorm: 628104 1-2 Tablet(s) PO QHS as nee ded for sleep No Start Date 06/20/2015 Inactive Klor-Con M20 mEq tablet,extended release RxNorm: 842888 2 Tablet(s) PO BID to use with lasix No Start Date 11/11/2013 Inactive Bystolic 5 mg tablet RxNorm: 748572 1 Tablet(s) PO QD No Start Date 1 Inactive Bystolic 10 mg tablet RxNorm: 074644 1 Tablet(s) PO BID No Start Da te 07/06/2015 Inactive Premarin 1.25 mg Tab RxNorm: 589562 Tablet(s) PO 2 -W-, and 1 Le-Zm-Qwq-Sun No Start Date 05/03/2010 Inactive baclofen 20 mg tablet RxNorm: 181982 1 Tablet(s) PO TID as needed for muscle spasm No Start Date 07/22/2015 Inactive hydrocodone-acetaminophen 7.5 mg-650 mg Tab RxNorm: 937273 1 Tablet(s) PO Q4H as needed for pain No Start Date 03/20/2011 Inactive albuterol sulfate 1.25 mg/3 mL Neb Solution RxNorm: 183581 1 Unit Dose INH Q4H 2boxes No Start Date 09/06/2015 Inactive Butrans 20 mcg/hour Transderm Patch RxNorm: 087510 1 TD WEEKLY apply to skin weekly after removing previous. No Start Date 07/22/2013 Inactive Medrol (Dustin) 4 mg tablets in a dose pack RxNorm: 611735 Tablet(s) PO As Directed No Start Date 07/30/2016 Inactive hydrocodone-acetaminophen 10 mg-325 mg Tab RxNorm: 2515571 1-2 Tablet(s) PO TID as needed for pain No Start Date 03/19/2011 Inactive Klonopin 1 mg tablet RxNorm: 927254 1 Tablet(s) PO QHS No Start Date 02/28/2016 Inactive honey topical RxNorm: topical No Start Date 06/16/2018 Inactive Clonidine 0.2 mg Tab RxNorm: 898630 1 Tablet(s) PO TID No Start Date 01/12/2010 Inactive ketorolac 10 mg tablet RxNorm: 047877 1 Tablet(s) PO Q8H No Start D ate 03/18/2012 Inactive as needed for headache Singulair 10 mg Tab RxNorm: 156932 1 Tablet(s) PO QD No Start Date Inactive Premarin 1.25 mg Tab RxNorm: 259600 1 Tablet(s) PO QD No Start Date 1 Inactive Flonase 50 mcg/Actuation Nasal [place] RxNorm: 7378364 1 [place] AL BID No Start Date 03/18/2012 Inactive Terbinafine 250 mg Tab RxNorm: 689568 1 Tablet(s) PO QD No Start Da te 04/03/2010 Inactive Fexofenadine 180 mg Tab RxNorm: 3422139 1 Tablet(s) PO QD No Start Date 09/06/2015 Inactive baclofen 20 mg tablet RxNorm: 244423 1 Tablet(s) PO TID as needed N o Start Date 05/25/2014 Inactive Diovan 160 mg Tab RxNorm: 441212 1 Tablet(s) PO QD No Start Date 09/12 Inactive mupirocin 2 % topical ointment RxNorm: 716121 1 Application TOP QID No Start Date 04/25/2016 Inactive ZOFRAN ODT 4 mg Tab, Rapid Dissolve RxNorm: 303986 1 Tablet(s) PO Q4H No Start Date 03/18/2012 Inactive as needed for nausea and vomiting Alprazolam 0.5 mg Tab RxNorm: 311753 1 Tablet(s) PO BID PRN No Star t Date 01/12/2010 Inactive cyclobenzaprine 10 mg tablet RxNorm: 337137 1 Tablet(s) PO TID as needed for muscle spasm No Start Date 10/08/2017 Inactive Albuterol 0.083% Aerosol Solution RxNorm: 1 Appl ication INH Q4H Use one ampule every 4 hrs with nebulizer as needed for shortness of breath. No Start Date 10/09/2010 Inactive lorazepam 1 mg tablet RxNorm: 829757 1 1/2 Tablet(s) PO QHS No Star t Date 02/02/2016 Inactive Melatonin 3 mg Tab RxNorm: 838850 Tablet(s) PO PRN No Start Date 07/11 Inactive Medrol (Dustin) 4 mg Tabs in a Dose Pack RxNorm: 241911 Tablet(s) PO N o Start Date 11/28/2010 Inactive lorazepam 1 mg tablet RxNorm: 466818 1 Tablet(s) PO QHS as need ed for sleep No Start Date 01/30/2016 Inactive hydrocodone-acetaminophen 10 mg-325 mg Tab RxNorm: 0557554 1-2 Tablet(s) PO QID as needed for severe pain No Start Date 03/24/2012 Inactive celecoxib 200 mg capsule RxNorm: 356162 1 Capsule(s) PO BID No Star t Date 06/26/2019 Inactive amlodipine 5 mg-benazepril 20 mg capsule RxNorm: 214599 1 Capsu le(s) PO QD No Start Date 04/10/2017 Inactive Bystolic 20 mg tablet RxNorm: 518235 1/2 Tablet(s) PO QAM No Start Date 01/23/2016 Inactive Bystolic 20 mg tablet RxNorm: 950713 1 Tablet(s) PO QAM No Start Da te 04/25/2016 Inactive Ambien 10 mg Tab RxNorm: 336821 1 Tablet(s) PO QHS No Start Date 05/11 Inactive Klor-Con 8 mEq Tab RxNorm: 871344 1 Tablet(s) PO QD when takes lasix No Start Date 03/06/2010 Inactive aspirin 81 mg tablet RxNorm: 141920 1 Tablet(s) PO QD No Start Date 0 01/29/2018 Inactive hydrocodone-acetaminophen 10 mg-325 mg Tab RxNorm: 0905336 1-2 T ablet(s) PO QID No Start Date 01/10/2012 Inactive Bystolic 10 mg tablet RxNorm: 578062 1 Tablet(s) PO QAM take one daily in the morning. No Start Date 05/28/2013 Inactive nystatin 100,000 unit/mL Oral Susp RxNorm: 161680 5 Milliliter( s) PO QID No Start Date 03/18/2012 Inactive swish and spit scopolamine 1.5 mg 72 hr Transderm Patch RxNorm: 524497 1 Unit Dose TD Q72H for motion sickness No Start Date 12/23/2013 Inactive Hydrocodone-Acetaminophen 10 mg-750 mg Tab RxNorm: 225485 1 Tablet(s) PO Q4H PRN No Start Date 01/12/2010 Inactive Soma 350 mg tablet RxNorm: 355296 1 Tablet(s) PO TID as needed for spasm No Start Date 01/12/2013 Inactive baclofen 10 mg tablet RxNorm: 834972 1 Tablet(s) PO TID as needed for muscle spasm No Start Date 09/18/2019 Inactive Soma 350 mg Tab RxNorm: 355415 1 Tablet(s) PO TID for spasm No Star t Date 01/31/2012 Inactive Co Q-10 400 mg capsule RxNorm: 656873 1 Capsule(s) PO QD No Start D ate 01/21/2019 Inactive nystatin 100,000 unit/gram topical cream RxNorm: 797097 Applica tion TOP BID No Start Date 03/22/2015 Inactive Exforge 5 mg-160 mg Tab RxNorm: 438884 1 Tablet(s) PO QD No Start D ate 10/09/2010 Inactive Hydrocodone-Acetaminophen 7.5 mg-650 mg Tab RxNorm: 182083 1 Ta blet(s) PO Q4H No Start Date 03/07/2010 Inactive Robaxin-750 750 mg Tab RxNorm: 722919 1-2 Tablet(s) PO TID prn spasm No Start Date 05/21/2011 Inactive amlodipine 5 mg tablet RxNorm: 369250 1 Tablet(s) PO QHS No Start D ate 09/29/2015 Inactive oxycodone-acetaminophen 10 mg-325 mg tablet RxNorm: 7796973 1-2 Tablet(s) PO Q6H No Start Date 06/16/2018 Inactive Triamterene-Hydrochlorothiazide 75 mg-50 mg Tab RxNorm: 3108 18 1 Tablet(s) PO QD No Start Date 02/08/2010 Inactive Alprazolam 0.5 mg Tab RxNorm: 269449 2 Tablet(s) PO QD prn No Start Date 03/07/2010 Inactive Bystolic 20 mg tablet RxNorm: 981688 1 Tablet(s) PO QAM No Start Da te 08/17/2015 Inactive ketorolac 10 mg tablet RxNorm: 900050 1 Tablet(s) PO QID prn he adache No Start Date 07/17/2012 Inactive acyclovir 800 mg Tab RxNorm: 470995 1 Tablet(s) PO BID No Start Date 03/18/2012 Inactive duloxetine 60 mg capsule,delayed release RxNorm: 480397 1 Capsu le(s) PO QD No Start Date 09/29/2015 Inactive Norvasc 5 mg tablet RxNorm: 798953 1 Tablet(s) PO QHS No Start Date 1 10/18/2014 Inactive promethazine 25 mg tablet RxNorm: 092862 1 Tablet(s) PO Q8H use sparingly No Start Date 07/22/2013 Inactive alprazolam 0.5 mg tablet RxNorm: 447740 3 Tablet(s) PO QHS No Start Date 06/06/2015 Inactive Lunesta 3 mg tablet RxNorm: 090358 1 Tablet(s) PO QHS No Start Date 0 09/20/2017 Inactive hydrocodone-acetaminophen 10 mg-325 mg Tab RxNorm: 3596696 1-2 Tablet(s) PO TID as needed for pain No Start Date 12/10/2011 Inactive Coricidin HBP Cough & Cold 4 mg-30 mg Tab RxNorm: 3755679 Tablet (s) PO PRN No Start Date 10/09/2010 Inactive Bactroban 2 % Ointment RxNorm: 906304 Application TOP QID to so res No Start Date 02/22/2012 Inactive Flonase 50 mcg/actuation Nasal [place] RxNorm: 660936 2 [place] QHS No Start Date 03/03/2014 Inactive Medication Administered No Medication Administered data Immunizations Vaccine Codes Date Status Tetanus, Diptheria, Pertussis CVX: 115 02/27/2014 Results Observation Observation Code Item Item Code Result Date S [facility] Location COMPREHENSIVE METABOLIC 04866 AST 15 U/L 2019 Unknown COMPREHENSIVE METABOLIC 08166 ALT 13 U/L 2019 Unknown COMPREHENSIVE METABOLIC 63919 BUN 12 mg/dL 2019 Unknown COMPREHENSIVE METABOLIC 37802 ALBUMIN 3.9 g/dL 2019 Unknown COMPREHENSIVE METABOLIC 73664 CHLORIDE 97 mmol/L 2019 Unknown COMPREHENSIVE METABOLIC 48656 Bili Total 0.4 mg/dL 09/29 Unknown COMPREHENSIVE METABOLIC 94855 ALK PHOS 130 U/L 2019 Unknown COMPREHENSIVE METABOLIC 55767 SODIUM 136 mmol/L 09/29 Unknown COMPREHENSIVE METABOLIC 31147 CREATININE 0.92 mg/dL 09/11 Unknown COMPREHENSIVE METABOLIC 20979 CALCIUM 9.1 mg/dL 2019 Unknown COMPREHENSIVE METABOLIC 23599 POTASSIUM 4.4 mmol/L 09/29 Unknown COMPREHENSIVE METABOLIC 19757 Total Protein 6.2 g/dL Unknown COMPREHENSIVE METABOLIC 12777 Glucose 391 mg/dL 2019 Unknown COMPREHENSIVE METABOLIC 91344 Bicarbonate 30 mmol/L 09/11 Unknown COMPREHENSIVE METABOLIC 71456 AGAP 9 mmol/L 2019 Unknown MEAN GLUC 7758938 Calc Mean Gluc 332 mg/dL 09/29/2019 Unkn own COMPLETE BLOOD COUNT [id number] WBC 7.0 10e9/L 09/29/19 Unknown COMPLETE BLOOD COUNT [id number] RBC 4.69 10e12/L 2019 Unknown COMPLETE BLOOD COUNT [id number] HEMOGLOBIN 14.6 g/dL 09/29/19 Unknown COMPLETE BLOOD COUNT [id number] HEMATOCRIT 45.2 % 09/29/19 Unknown COMPLETE BLOOD COUNT [id number] MCV 96.4 fL 0 Unknown COMPLETE BLOOD COUNT [id number] MCH 31.1 pg 0 Unknown COMPLETE BLOOD COUNT 8044929 MCHC 32.3 g/dL 0 Unknown COMPLETE BLOOD COUNT [id number] PLATELET COUNT 209 10e9/L Unknown COMPLETE BLOOD COUNT [id number] Mean Plt Volume 9.8 fL Unknown COMPLETE BLOOD COUNT 7694498 Neut Auto 48.1 % 0 Unknown COMPLETE BLOOD COUNT [id number] Lymph Auto 36.5 % 09/29/19 Unknown COMPLETE BLOOD COUNT 5341239 [place] Auto 8.6 % 0 Unknown COMPLETE BLOOD COUNT 1141060 RDW 13.4 % 0 Unknown COMPLETE BLOOD COUNT 1707972 Eos Auto 6.5 % 0 Unknown COMPLETE BLOOD COUNT [id number] Baso Auto 0.3 % 0 Unknown COMPLETE BLOOD COUNT [id number] Neutrophil Abs 3.37 10e9/L Unknown COMPLETE BLOOD COUNT [id number] Lymphocyte Abs 2.56 10e9/L Unknown COMPLETE BLOOD COUNT [id number] Monocyte Abs 0.60 10e9/L 09/11 Unknown COMPLETE BLOOD COUNT [id number] Eosinophil Abs 0.46 10e9/L Unknown COMPLETE BLOOD COUNT [id number] RDW-SD 45.9 fL 0 Unknown COMPLETE BLOOD COUNT [id number] Basophil Abs 0.02 10e9/L 09/11 Unknown LIPID GROUP 24908 Cholesterol 248 mg/dL 09/29/2019 Unkno wn LIPID GROUP 14087 Triglyceride 898 mg/dL 09/29/2019 Unkn own LIPID GROUP 87700 HDL CHOLESTEROL 41 mg/dL 09/29/2019 U nknown LIPID GROUP 71572 Chol/HDL Ratio 6.05 ratio 09/29/2019 U nknown LIPID GROUP 07554 NON-HDL Chol 207 mg/dL 09/29/2019 Unkn own LIPID GROUP 33373 LDL Cholesterol N/A Trig >400 020 Unknown GLYCOSYLATED HEMOGLOBIN TEST 74408 Hgb A1c 77073-9 13.2 % 0 09/29/2019 Unknown FREE T4 51616 T4 Free 0.75 ng/dL 09/29/2019 Unknown GFR CALC 1058037 GFR Non Afr Amr >60 mL/min 09/29/2019 Un known GFR CALC 3206627 GFR Afr Amr >60 mL/min 09/29/2019 Unknow n THYROID STIMULATING HORMONE 97601 TSH 4.245 uIU/mL 09/29/2019 Unknown COMPLETE BLOOD COUNT [id number] WBC 10.7 10e9/L 018 Unknown COMPLETE BLOOD COUNT [id number] RBC 4.59 10e12/L 2017 Unknown COMPLETE BLOOD COUNT 1659626 HEMOGLOBIN 14.8 g/dL 12/11/19 18 Unknown COMPLETE BLOOD COUNT 1677387 HEMATOCRIT 44.9 % 12/11/19 18 Unknown COMPLETE BLOOD COUNT 1403498 MCV 97.8 fL 8 Unknown COMPLETE BLOOD COUNT 8825988 MCH 32.2 pg 8 Unknown COMPLETE BLOOD COUNT 4477641 MCHC 33.0 g/dL 8 Unknown COMPLETE BLOOD COUNT [id number] PLATELET COUNT 261 10e9/L 10/2017 Unknown COMPLETE BLOOD COUNT 7497953 Mean Plt Volume 9.5 fL 10/2017 Unknown COMPLETE BLOOD COUNT 7263154 Neut Auto 59.9 % 8 Unknown COMPLETE BLOOD COUNT 6850541 Lymph Auto 27.4 % 12/11/19 18 Unknown COMPLETE BLOOD COUNT 9665884 [place] Auto 8.2 % 8 Unknown COMPLETE BLOOD COUNT 8314452 RDW 13.3 % 8 Unknown COMPLETE BLOOD COUNT 9304757 Eos Auto 4.1 % 8 Unknown COMPLETE BLOOD COUNT 5385631 Baso Auto 0.4 % 8 Unknown COMPLETE BLOOD COUNT 1487895 Neutrophil Abs 6.41 10e9/L Unknown COMPLETE BLOOD COUNT 6857563 Lymphocyte Abs 2.93 10e9/L Unknown COMPLETE BLOOD COUNT 2375869 Monocyte Abs 0.88 10e9/L 10/2017 Unknown COMPLETE BLOOD COUNT 6241551 Eosinophil Abs 0.44 10e9/L Unknown COMPLETE BLOOD COUNT 0947209 RDW-SD 46.2 fL 8 Unknown COMPLETE BLOOD COUNT [id number] Basophil Abs 0.04 10e9/L 10/2017 Unknown THYROID STIMULATING HORMONE 15842 TSH 4.015 uIU/mL 12/10/2017 Unknown COMPREHENSIVE METABOLIC 21162 AST 25 U/L 2017 Unknown COMPREHENSIVE METABOLIC 57124 ALT 17 U/L 2017 Unknown COMPREHENSIVE METABOLIC 76587 BUN 19 mg/dL 2017 Unknown COMPREHENSIVE METABOLIC 73034 ALBUMIN 4.0 g/dL 2017 Unknown COMPREHENSIVE METABOLIC 24708 CHLORIDE 91 mmol/L 2017 Unknown COMPREHENSIVE METABOLIC 81211 Bili Total 0.5 mg/dL 12/10 Unknown COMPREHENSIVE METABOLIC 33919 ALK PHOS 75 U/L 2017 Unknown COMPREHENSIVE METABOLIC 16054 SODIUM 136 mmol/L 12/10 Unknown COMPREHENSIVE METABOLIC 21983 CREATININE 1.05 mg/dL 10/2017 Unknown COMPREHENSIVE METABOLIC 24815 CALCIUM 8.9 mg/dL 2017 Unknown COMPREHENSIVE METABOLIC 27275 POTASSIUM 3.4 mmol/L 12/10 Unknown COMPREHENSIVE METABOLIC 72718 Total Protein 6.5 g/dL Unknown COMPREHENSIVE METABOLIC 63901 Glucose 138 mg/dL 2017 Unknown COMPREHENSIVE METABOLIC 65993 Bicarbonate 35 mmol/L 10/2017 Unknown COMPREHENSIVE METABOLIC 46657 AGAP 10 mmol/L 2017 Unknown MEAN GLUC 2652390 Calc Mean Gluc 171 mg/dL 12/10/2017 Unkn own LIPID GROUP 25909 Cholesterol 204 mg/dL 12/10/2017 Unkno wn LIPID GROUP 74370 Triglyceride 411 mg/dL 12/10/2017 Unkn own LIPID GROUP 61644 HDL CHOLESTEROL 50 mg/dL 12/10/2017 U nknown LIPID GROUP 62166 Chol/HDL Ratio 4.08 ratio 12/10/2017 U nknown LIPID GROUP 24418 NON-HDL Chol 154 mg/dL 12/10/2017 Unkn own LIPID GROUP 99290 LDL Cholesterol N/A Trig >400 018 Unknown GLYCOSYLATED HEMOGLOBIN TEST 84283 Hgb A1c 10081-8 7.6 % 0 12/10/2017 Unknown FREE T4 36503 T4 Free 1.40 ng/dL 12/10/2017 Unknown GFR CALC 6173127 GFR Non Afr Amr 55 mL/min 12/10/2017 Unk nown GFR CALC 5201997 GFR Afr Amr >60 mL/min 12/10/2017 Unknow n GFR CALC 5151284 GFR Non Afr Amr 48 mL/min 06/28/2017 Unk nown GFR CALC 3448210 GFR Afr Amr 59 mL/min 06/28/2017 Unknown COMPREHENSIVE METABOLIC 07176 AST 32 U/L 2016 Unknown COMPREHENSIVE METABOLIC 49580 ALT 22 U/L 2016 Unknown COMPREHENSIVE METABOLIC 24785 BUN 23 mg/dL 2016 Unknown COMPREHENSIVE METABOLIC 09930 ALBUMIN 4.7 g/dL 2016 Unknown COMPREHENSIVE METABOLIC 34892 CHLORIDE 89 mmol/L 2016 Unknown COMPREHENSIVE METABOLIC 61252 Bili Total 0.5 mg/dL 06/28 Unknown COMPREHENSIVE METABOLIC 36612 ALK PHOS 90 U/L 2016 Unknown COMPREHENSIVE METABOLIC 46385 SODIUM 135 mmol/L 06/28 Unknown COMPREHENSIVE METABOLIC 00251 CREATININE 1.18 mg/dL 06/10 Unknown COMPREHENSIVE METABOLIC 37900 CALCIUM 9.7 mg/dL 2016 Unknown COMPREHENSIVE METABOLIC 46125 POTASSIUM 3.5 mmol/L 06/28 Unknown COMPREHENSIVE METABOLIC 56872 Total Protein 7.7 g/dL Unknown COMPREHENSIVE METABOLIC 80769 Glucose 129 mg/dL 2016 Unknown COMPREHENSIVE METABOLIC 34282 Bicarbonate 34 mmol/L 06/10 Unknown COMPREHENSIVE METABOLIC 02237 AGAP 12 mmol/L 2016 Unknown LIPID GROUP 17291 HDL TEST 64 MG/DL 08/27/2014 Unknown LIPID GROUP 92011 TRIG 222 MG/DL 08/27/2014 Unknown LIPID GROUP 61644 TEST LDL 209 MG/DL 08/27/2014 Unknown LIPID GROUP 37609 CHOL 317 MG/DL 08/27/2014 Unknown LIPID GROUP 74022 RCHOL/HDL 4.95 RATIO 08/27/2014 Unknow n LIPID GROUP 82825 NON-HDL CH 253 MG/DL 08/27/2014 Unknow n GFR CALC 6387767 GFR AA >60 ML/MIN 08/27/2014 Unknown GFR CALC 6899207 GFR NON-AA >60 ML/MIN 08/27/2014 Unknown COMPLETE BLOOD COUNT 4282862 WBC 7.0 10e9/L 08/27/20 14 Unknown COMPLETE BLOOD COUNT 2758794 RBC 4.98 10e12/L 2013 Unknown COMPLETE BLOOD COUNT 9311990 HGB 15.6 g/dL 4 Unknown COMPLETE BLOOD COUNT 7572343 HCT DET 46.5 % 4 Unknown COMPLETE BLOOD COUNT 0773567 MCV 93.4 fL 4 Unknown COMPLETE BLOOD COUNT 6830597 MCH 31.3 pg 4 Unknown COMPLETE BLOOD COUNT 6245005 MCHC 33.5 g/dL 4 Unknown COMPLETE BLOOD COUNT 9194211 PLT 309 10e9/L 08/27/20 14 Unknown COMPLETE BLOOD COUNT 7105885 MPV 9.6 fL 4 Unknown COMPLETE BLOOD COUNT 2599619 CADEN % 57.2 % 4 Unknown COMPLETE BLOOD COUNT 2248960 LY % 33.2 % 4 Unknown COMPLETE BLOOD COUNT [id number] MON % 7.3 % 4 Unknown COMPLETE BLOOD COUNT 4310898 EOS % 2.0 % 4 Unknown COMPLETE BLOOD COUNT 7936528 BASO % 0.3 % 4 Unknown COMPLETE BLOOD COUNT 8370391 RDW 13.7 % 4 Unknown COMPLETE BLOOD COUNT [id number] ABS CADEN 4.00 10e9/L 014 Unknown COMPLETE BLOOD COUNT [id number] ABS LYMPH 2.32 10e9/L 014 Unknown COMPLETE BLOOD COUNT [id number] ABS MONO 0.51 10e9/L 014 Unknown COMPLETE BLOOD COUNT [id number] ABS EOS 0.14 10e9/L 014 Unknown COMPLETE BLOOD COUNT 3491036 ABS BASO 0.02 10e9/L 014 Unknown COMPLETE BLOOD COUNT 6932152 RDW-SD 45.1 fL 4 Unknown COMPREHENSIVE METABOLIC 42111 AST 13 U/L 2013 Unknown COMPREHENSIVE METABOLIC 20471 ALT 11 IU/L 2013 Unknown COMPREHENSIVE METABOLIC 33365 BUN 23 MG/DL 2013 Unknown COMPREHENSIVE METABOLIC 62959 ALBUMIN 4.4 GM/DL 2013 Unknown COMPREHENSIVE METABOLIC 45772 CHLORIDE 99 MMOL/L 2013 Unknown COMPREHENSIVE METABOLIC 45444 BILI TOT 0.5 MG/DL 2013 Unknown COMPREHENSIVE METABOLIC 05426 ALK PHOS 56 U/L 2013 Unknown COMPREHENSIVE METABOLIC 31366 SODIUM 138 MMOL/L 08/27 Unknown COMPREHENSIVE METABOLIC 06898 CREATININE 0.95 MG/DL 08/10 Unknown COMPREHENSIVE METABOLIC 80087 CALCIUM 9.8 MG/DL 2013 Unknown COMPREHENSIVE METABOLIC 11305 POTASSIUM 3.5 MMOL/L 08/27 Unknown COMPREHENSIVE METABOLIC 45648 PROT TOT 6.8 GM/DL 2013 Unknown COMPREHENSIVE METABOLIC 40886 Glucose 90 MG/DL 2013 Unknown COMPREHENSIVE METABOLIC 34986 BICARB 34 MMOL/L 2013 Unknown COMPREHENSIVE METABOLIC 25829 ANION GAP 5 MEQ/L 2013 Unknown LIPASE 10115 LIPASE 11 IU/L 07/21/2014 Unknown AMYLASE 62375 AMYLASE 39 IU/L 07/21/2014 Unknown HEMOGLOBIN A1C (GLYCOSYLATED) 4594710 A1C HPLC 94582-0 6.2 % 03/05/2013 Unknown THYROID STIMULATING HORMONE 53154 TSH 6.986 uIU/ML 03/05/2013 Unknown COMPLETE BLOOD COUNT 5680765 WBC 12.7 10e9/L 013 Unknown COMPLETE BLOOD COUNT 2512236 RBC 4.53 10e12/L 2012 Unknown COMPLETE BLOOD COUNT 3472341 HGB 14.7 g/dL 3 Unknown COMPLETE BLOOD COUNT 8143959 HCT DET 43.1 % 3 Unknown COMPLETE BLOOD COUNT 5270014 MCV 95.1 fL 3 Unknown COMPLETE BLOOD COUNT 2140573 MCH 32.5 pg 3 Unknown COMPLETE BLOOD COUNT 7667379 MCHC 34.1 g/dL 3 Unknown COMPLETE BLOOD COUNT 7075144 PLT 346 10e9/L 03/05/20 13 Unknown COMPLETE BLOOD COUNT 8089449 MPV 9.5 fL 3 Unknown COMPLETE BLOOD COUNT 6553964 CADEN % 67.6 % 3 Unknown COMPLETE BLOOD COUNT 1590810 LY % 22.1 % 3 Unknown COMPLETE BLOOD COUNT 9645576 MON % 6.6 % 3 Unknown COMPLETE BLOOD COUNT [id number] EOS % 3.3 % 3 Unknown COMPLETE BLOOD COUNT 5239924 BASO % 0.4 % 3 Unknown COMPLETE BLOOD COUNT 4047652 RDW 14.0 % 3 Unknown COMPLETE BLOOD COUNT 3161341 ABS CADEN 8.59 10e9/L 013 Unknown COMPLETE BLOOD COUNT [id number] ABS LYMPH 2.81 10e9/L 013 Unknown COMPLETE BLOOD COUNT [id number] ABS MONO 0.84 10e9/L 013 Unknown COMPLETE BLOOD COUNT 1531915 ABS EOS 0.42 10e9/L 013 Unknown COMPLETE BLOOD COUNT 0224548 ABS BASO 0.05 10e9/L 013 Unknown COMPLETE BLOOD COUNT 2969386 RDW-SD 46.0 fL 3 Unknown FREE T4 73756 FREE T4 1.14 NG/DL 03/05/2013 Unknown COMPREHENSIVE METABOLIC 04001 AST 17 U/L 2012 Unknown COMPREHENSIVE METABOLIC 36990 ALT 12 IU/L 2012 Unknown COMPREHENSIVE METABOLIC 55018 BUN 24 MG/DL 2012 Unknown COMPREHENSIVE METABOLIC 94438 ALBUMIN 4.2 GM/DL 2012 Unknown COMPREHENSIVE METABOLIC 20567 CHLORIDE 93 MMOL/L 2012 Unknown COMPREHENSIVE METABOLIC 61560 BILI TOT 0.5 MG/DL 2012 Unknown COMPREHENSIVE METABOLIC 19682 ALK PHOS 75 U/L 2012 Unknown COMPREHENSIVE METABOLIC 36360 SODIUM 141 MMOL/L 03/05 Unknown COMPREHENSIVE METABOLIC 33729 CREATININE 1.36 MG/DL 02/09 Unknown COMPREHENSIVE METABOLIC 08899 CALCIUM 9.2 MG/DL 2012 Unknown COMPREHENSIVE METABOLIC 43102 POTASSIUM 3.1 MMOL/L 03/05 Unknown COMPREHENSIVE METABOLIC 02838 PROT TOT 6.9 GM/DL 2012 Unknown COMPREHENSIVE METABOLIC 19430 Glucose 123 MG/DL 2012 Unknown COMPREHENSIVE METABOLIC 68255 BICARB 36 MMOL/L 2012 Unknown COMPREHENSIVE METABOLIC 73071 ANION GAP 12 MEQ/L 2012 Unknown GFR CALC 3163668 GFR AA 51.0L ML/MIN 03/05/2013 Unknow n GFR CALC 6496061 GFR NON-AA 42.0L ML/MIN 03/05/2013 Unkno wn COMPREHENSIVE METABOLIC 36109 AST 14 U/L 2012 Unknown COMPREHENSIVE METABOLIC 19020 ALT 11 IU/L 2012 Unknown COMPREHENSIVE METABOLIC 65994 BUN 16 MG/DL 2012 Unknown COMPREHENSIVE METABOLIC 25386 ALBUMIN 4.2 GM/DL 2012 Unknown COMPREHENSIVE METABOLIC 45105 CHLORIDE 98 MMOL/L 2012 Unknown COMPREHENSIVE METABOLIC 53091 BILI TOT 0.4 MG/DL 2012 Unknown COMPREHENSIVE METABOLIC 62532 ALK PHOS 77 U/L 2012 Unknown COMPREHENSIVE METABOLIC 54666 SODIUM 139 MMOL/L 09/25 Unknown COMPREHENSIVE METABOLIC 70211 CREATININE 0.86 MG/DL 09/10 Unknown COMPREHENSIVE METABOLIC 48292 CALCIUM 9.5 MG/DL 2012 Unknown COMPREHENSIVE METABOLIC 01282 POTASSIUM 3.8 MMOL/L 09/25 Unknown COMPREHENSIVE METABOLIC 66860 PROT TOT 6.8 GM/DL 2012 Unknown COMPREHENSIVE METABOLIC 82169 Glucose 91 MG/DL 2012 Unknown COMPREHENSIVE METABOLIC 55279 BICARB 32 MMOL/L 2012 Unknown COMPREHENSIVE METABOLIC 90092 ANION GAP 9 MEQ/L 2012 Unknown FREE T4 43475 FREE T4 0.98 NG/DL 09/25/2012 Unknown THYROID STIMULATING HORMONE 29119 TSH 1.736 uIU/ML 09/25/2012 Unknown C-REACTIVE PROTEIN (CRP) QUANT 07215 CRP 2.3 MG/DL 09/25/2012 Unknown COMPLETE BLOOD COUNT 8858985 WBC 11.9 10e9/L 013 Unknown COMPLETE BLOOD COUNT 9361373 RBC 4.87 10e12/L 2012 Unknown COMPLETE BLOOD COUNT 1889583 HGB 15.1 g/dL 3 Unknown COMPLETE BLOOD COUNT 9758372 HCT DET 44.8 % 3 Unknown COMPLETE BLOOD COUNT 0600951 MCV 92.0 fL 3 Unknown COMPLETE BLOOD COUNT 4235509 MCH 31.0 pg 3 Unknown COMPLETE BLOOD COUNT 9508280 MCHC 33.7 g/dL 3 Unknown COMPLETE BLOOD COUNT 8085977 PLT 343 10e9/L 09/25/19 13 Unknown COMPLETE BLOOD COUNT 3913752 MPV 9.0 fL 3 Unknown COMPLETE BLOOD COUNT 4214402 CADEN % 68.2 % 3 Unknown COMPLETE BLOOD COUNT 4070373 LY % 22.4 % 3 Unknown COMPLETE BLOOD COUNT 1987484 MON % 6.4 % 3 Unknown COMPLETE BLOOD COUNT 1656241 EOS % 2.7 % 3 Unknown COMPLETE BLOOD COUNT 2903664 BASO % 0.3 % 3 Unknown COMPLETE BLOOD COUNT 5902302 RDW 13.8 % 3 Unknown COMPLETE BLOOD COUNT [id number] ABS CADEN 8.12 10e9/L 013 Unknown COMPLETE BLOOD COUNT 5168789 ABS LYMPH 2.67 10e9/L 013 Unknown COMPLETE BLOOD COUNT [id number] ABS MONO 0.76 10e9/L 013 Unknown COMPLETE BLOOD COUNT [id number] ABS EOS 0.32 10e9/L 013 Unknown COMPLETE BLOOD COUNT 4147274 ABS BASO 0.04 10e9/L 013 Unknown COMPLETE BLOOD COUNT 3974635 RDW-SD 45.6 fL 3 Unknown GFR CALC 0075030 GFR AA >60 ML/MIN 09/25/2012 Unknown GFR CALC 4073216 GFR NON-AA >60 ML/MIN 09/25/2012 Unknown ERYTHROCYTE SEDIMENTATION RATE 97408 ESR 19 MM/HR 05/06/2012 Unknown VITAMIN B 12 FOLIC ACID 17835|73913 VIT B 12 922 PG/ML 04/11 Unknown VITAMIN B 12 FOLIC ACID 76664|36540 FOLIC ACID 13.6 NG/ML Unknown URIC ACID 66957 URIC ACID 7.8 MG/DL 05/06/2012 Unknown COMPLETE BLOOD COUNT 10605 WBC 11.9 10e9/L 012 Unknown COMPLETE BLOOD COUNT 13848 RBC 5.30 10e12/L 2011 Unknown COMPLETE BLOOD COUNT 63451 HGB 16.6 g/dL 2 Unknown COMPLETE BLOOD COUNT 59741 HCT DET 47.2 % 2 Unknown COMPLETE BLOOD COUNT 14369 MCV 89.1 fL 2 Unknown COMPLETE BLOOD COUNT 32817 MCH 31.3 pg 2 Unknown COMPLETE BLOOD COUNT 73651 MCHC 35.2 g/dL 2 Unknown COMPLETE BLOOD COUNT 69844 PLT 362 10e9/L 05/06/20 12 Unknown COMPLETE BLOOD COUNT 89025 MPV 9.4 fL 2 Unknown COMPLETE BLOOD COUNT 20115 CADEN % 68.2 % 2 Unknown COMPLETE BLOOD COUNT 11798 LY % 22.0 % 2 Unknown COMPLETE BLOOD COUNT 64008 MON % 6.9 % 2 Unknown COMPLETE BLOOD COUNT 78581 EOS % 2.6 % 2 Unknown COMPLETE BLOOD COUNT 08745 BASO % 0.3 % 2 Unknown COMPLETE BLOOD COUNT 23954 RDW 12.8 % 2 Unknown COMPLETE BLOOD COUNT 58259 ABS CADEN 8.12 10e9/L 012 Unknown COMPLETE BLOOD COUNT 16275 ABS LYMPH 2.62 10e9/L 012 Unknown COMPLETE BLOOD COUNT 45085 ABS MONO 0.82 10e9/L 012 Unknown COMPLETE BLOOD COUNT 76256 ABS EOS 0.31 10e9/L 012 Unknown COMPLETE BLOOD COUNT 70764 ABS BASO 0.04 10e9/L 012 Unknown COMPLETE BLOOD COUNT 72287 RDW-SD 41.5 fL 2 Unknown GFR CALC 6497373 GFR AA >60 ML/MIN 05/06/2012 Unknown GFR CALC 2105119 GFR NON-AA 58.0L ML/MIN 05/06/2012 Unkno wn FREE T4 28533 FREE T4 1.15 NG/DL 05/06/2012 Unknown THYROID STIMULATING HORMONE 48410 TSH 1.568 uIU/ML 05/06/2012 Unknown COMPREHENSIVE METABOLIC 62313 AST 20 U/L 2011 Unknown COMPREHENSIVE METABOLIC 16344 ALT 12 IU/L 2011 Unknown COMPREHENSIVE METABOLIC 56756 BUN 20 MG/DL 2011 Unknown COMPREHENSIVE METABOLIC 45100 ALBUMIN 4.5 GM/DL 2011 Unknown COMPREHENSIVE METABOLIC 80149 CHLORIDE 91 MMOL/L 2011 Unknown COMPREHENSIVE METABOLIC 36735 BILI TOT 0.4 MG/DL 2011 Unknown COMPREHENSIVE METABOLIC 82472 ALK PHOS 73 U/L 2011 Unknown COMPREHENSIVE METABOLIC 33502 SODIUM 139 MMOL/L 05/06 Unknown COMPREHENSIVE METABOLIC 19836 CREATININE 1.02 MG/DL 04/11 Unknown COMPREHENSIVE METABOLIC 97584 CALCIUM 9.7 MG/DL 2011 Unknown COMPREHENSIVE METABOLIC 11491 POTASSIUM 3.1 MMOL/L 05/06 Unknown COMPREHENSIVE METABOLIC 34876 PROT TOT 7.3 GM/DL 2011 Unknown COMPREHENSIVE METABOLIC 95756 Glucose 118 MG/DL 2011 Unknown COMPREHENSIVE METABOLIC 25481 BICARB 33 MMOL/L 2011 Unknown COMPREHENSIVE METABOLIC 84669 ANION GAP 15 MEQ/L 2011 Unknown Procedures Procedure Codes Date ROUTINE VENIPUNCTURE CPT-4: 73071 09/29/2019 URINALYSIS NONAUTO W/O SCOPE CPT-4: 27378 09/29/2019 COMPREHEN METABOLIC PANEL CPT-4: 23929 09/29/2019 LIPID PANEL CPT-4: 82004 09/29/2019 A1C HPLC CPT-4: 22598 09/29/2019 ASSAY OF FREE THYROXINE CPT-4: 65392 09/29/2019 ASSAY THYROID STIM HORMONE CPT-4: 54402 09/29/2019 COMPLETE CBC W/AUTO DIFF WBC CPT-4: 45599 09/29/2019 URINALYSIS NONAUTO W/O SCOPE CPT-4: 58301 09/30/2018 MICROALBUMIN QUANTITATIVE CPT-4: 58752 09/30/2018 CEFTRIAXONE SODIUM INJECTION CPT-4: J0696 06/19/2018 THER/PROPH/DIAG INJ SC/IM CPT-4: 33496 06/19/2018 CEFTRIAXONE SODIUM INJECTION CPT-4: J0696 06/17/2018 THER/PROPH/DIAG INJ SC/IM CPT-4: 40286 06/17/2018 THER/PROPH/DIAG INJ SC/IM CPT-4: 94142 05/16/2018 KETOROLAC TROMETHAMINE INJ CPT-4: J1885 05/16/2018 ONDANSETRON HCL INJECTION CPT-4: J2405 05/16/2018 THER/PROPH/DIAG INJ SC/IM CPT-4: 01087 05/16/2018 ROUTINE VENIPUNCTURE CPT-4: 28787 03/20/2018 COMPREHEN METABOLIC PANEL CPT-4: 81901 03/20/2018 DEXAMETHASONE SODIUM PHOS CPT-4: J1100 02/11/2018 THER/PROPH/DIAG INJ SC/IM CPT-4: 78247 02/11/2018 TRIAMCINOLONE ACET INJ NOS CPT-4: J3301 02/11/2018 CEFTRIAXONE SODIUM INJECTION CPT-4: J0696 02/01/2018 THER/PROPH/DIAG INJ SC/IM CPT-4: 16783 02/01/2018 CEFTRIAXONE SODIUM INJECTION CPT-4: J0696 01/30/2018 THER/PROPH/DIAG INJ SC/IM CPT-4: 83478 01/30/2018 ROUTINE VENIPUNCTURE CPT-4: 21334 12/10/2017 ASSAY OF FREE THYROXINE CPT-4: 41540 12/10/2017 ASSAY THYROID STIM HORMONE CPT-4: 71957 12/10/2017 COMPREHEN METABOLIC PANEL CPT-4: 65891 12/10/2017 COMPLETE CBC W/AUTO DIFF WBC CPT-4: 59465 12/10/2017 LIPID PANEL CPT-4: 80801 12/10/2017 A1C HPLC CPT-4: 68690 12/10/2017 CEFTRIAXONE SODIUM INJECTION CPT-4: J0696 12/10/2017 THER/PROPH/DIAG INJ SC/IM CPT-4: 08282 12/10/2017 CEFTRIAXONE SODIUM INJECTION CPT-4: J0696 12/07/2017 THER/PROPH/DIAG INJ SC/IM CPT-4: 17776 12/07/2017 DEXAMETHASONE SODIUM PHOS CPT-4: J1100 12/07/2017 THER/PROPH/DIAG INJ SC/IM CPT-4: 64220 12/07/2017 CEFTRIAXONE SODIUM INJECTION CPT-4: J0696 10/08/2017 THER/PROPH/DIAG INJ SC/IM CPT-4: 80439 10/08/2017 CEFTRIAXONE SODIUM INJECTION CPT-4: J0696 09/21/2017 THER/PROPH/DIAG INJ SC/IM CPT-4: 58357 09/21/2017 CEFTRIAXONE SODIUM INJECTION CPT-4: J0696 09/20/2017 THER/PROPH/DIAG INJ SC/IM CPT-4: 84371 09/20/2017 REMOVAL OF NAIL PLATE CPT-4: 01878 08/29/2017 THER/PROPH/DIAG INJ SC/IM CPT-4: 50399 08/29/2017 TRIAMCINOLONE ACET INJ NOS CPT-4: J3301 08/29/2017 CEFTRIAXONE SODIUM INJECTION CPT-4: J0696 08/29/2017 THER/PROPH/DIAG INJ SC/IM CPT-4: 47694 08/29/2017 DESTRUCT PREMALG LESION (Cryosurgery) CPT-4: 30173 ROUTINE VENIPUNCTURE CPT-4: 20722 06/27/2017 ASSAY OF FREE THYROXINE CPT-4: 78906 06/27/2017 ASSAY THYROID STIM HORMONE CPT-4: 17986 06/27/2017 COMPREHEN METABOLIC PANEL CPT-4: 56339 06/27/2017 COMPLETE CBC W/AUTO DIFF WBC CPT-4: 35688 06/27/2017 EXC TR-EXT B9+REECE 0.5 CM< CPT-4: 43145 01/24/2017 THER/PROPH/DIAG INJ SC/IM CPT-4: 15941 08/02/2016 DEXAMETHASONE SODIUM PHOS CPT-4: J1100 08/02/2016 DESTRUCT PREMALG LESION (Cryosurgery) CPT-4: 25184 EXC TR-EXT B9+REECE 0.5 CM< CPT-4: 03508 08/01/2016 AEROBIC WOUND CULTURE & STN CPT-4: 60618 07/06/2016 CEFTRIAXONE SODIUM INJECTION CPT-4: J0696 05/25/2016 THER/PROPH/DIAG INJ SC/IM CPT-4: 09674 05/25/2016 THER/PROPH/DIAG INJ SC/IM CPT-4: 83200 04/26/2016 DEXAMETHASONE SODIUM PHOS CPT-4: J1100 04/26/2016 CEFTRIAXONE SODIUM INJECTION CPT-4: J0696 04/26/2016 THER/PROPH/DIAG INJ SC/IM CPT-4: 71616 04/26/2016 THER/PROPH/DIAG INJ SC/IM CPT-4: 08015 02/09/2016 TRIAMCINOLONE ACET INJ NOS CPT-4: J3301 02/09/2016 URINALYSIS NONAUTO W/O SCOPE CPT-4: 81052 01/24/2016 URINE CULTURE/ COLONY COUNT CPT-4: 45553 01/24/2016 THER/PROPH/DIAG INJ SC/IM CPT-4: 09339 12/08/2015 TRIAMCINOLONE ACET INJ NOS CPT-4: J3301 12/08/2015 THER/PROPH/DIAG INJ SC/IM CPT-4: 00731 10/07/2015 TRIAMCINOLONE ACET INJ NOS CPT-4: J3301 10/07/2015 DESTRUCT PREMALG LESION (Cryosurgery) CPT-4: 62254 THER/PROPH/DIAG INJ SC/IM CPT-4: 70445 03/16/2015 METHYLPREDNISOLONE 40 MG INJ CPT-4: J1030 03/16/2015 DESTRUCT PREMALG LESION (Cryosurgery) CPT-4: 20852 THER/PROPH/DIAG INJ SC/IM CPT-4: 50787 09/11/2014 METHYLPREDNISOLONE 40 MG INJ CPT-4: J1030 09/11/2014 TRIAMCINOLONE ACET INJ NOS CPT-4: J3301 09/11/2014 CEFTRIAXONE SODIUM INJECTION CPT-4: J0696 09/11/2014 THER/PROPH/DIAG INJ SC/IM CPT-4: 12284 09/11/2014 ROUTINE VENIPUNCTURE CPT-4: 76470 08/27/2014 COMPREHEN METABOLIC PANEL CPT-4: 79963 08/27/2014 COMPLETE CBC W/AUTO DIFF WBC CPT-4: 00186 08/27/2014 LIPID PANEL CPT-4: 93110 08/27/2014 ROUTINE VENIPUNCTURE CPT-4: 98029 07/21/2014 ASSAY OF AMYLASE CPT-4: 02489 07/21/2014 ASSAY OF LIPASE CPT-4: 04859 07/21/2014 THER/PROPH/DIAG INJ SC/IM CPT-4: 43123 07/15/2014 TRIAMCINOLONE ACET INJ NOS CPT-4: J3301 07/15/2014 ROUTINE VENIPUNCTURE CPT-4: 47116 05/14/2014 ASSAY OF FREE THYROXINE CPT-4: 12120 05/14/2014 ASSAY THYROID STIM HORMONE CPT-4: 40532 05/14/2014 COMPREHEN METABOLIC PANEL CPT-4: 11476 05/14/2014 COMPLETE CBC W/AUTO DIFF WBC CPT-4: 71238 05/14/2014 LIPID PANEL CPT-4: 41604 05/14/2014 CEFTRIAXONE SODIUM INJECTION CPT-4: J0696 04/21/2014 THER/PROPH/DIAG INJ SC/IM CPT-4: 46987 04/21/2014 THER/PROPH/DIAG INJ SC/IM CPT-4: 70190 04/21/2014 TRIAMCINOLONE ACET INJ NOS CPT-4: J3301 04/21/2014 THER/PROPH/DIAG INJ SC/IM CPT-4: 14023 03/04/2014 METHYLPREDNISOLONE 40 MG INJ CPT-4: J1030 03/04/2014 TRIAMCINOLONE ACET INJ NOS CPT-4: J3301 03/04/2014 CEFTRIAXONE SODIUM INJECTION CPT-4: J0696 03/04/2014 THER/PROPH/DIAG INJ SC/IM CPT-4: 48275 03/04/2014 TDAP VACCINE 7 YRS/> IM CPT-4: 72962 02/27/2014 IMMUNIZATION ADMIN CPT-4: 00659 02/27/2014 DESTRUCT PREMALG LESION (Cryosurgery) CPT-4: 63463 DESTRUCT PREMALG LES 2-14 CPT-4: 12776 01/13/2014 THER/PROPH/DIAG INJ SC/IM CPT-4: 41569 10/21/2013 METHYLPREDNISOLONE 40 MG INJ CPT-4: J1030 10/21/2013 TRIAMCINOLONE ACET INJ NOS CPT-4: J3301 10/21/2013 CEFTRIAXONE SODIUM INJECTION CPT-4: J0696 08/27/2013 THER/PROPH/DIAG INJ SC/IM CPT-4: 57338 08/27/2013 THER/PROPH/DIAG INJ SC/IM CPT-4: 73975 08/27/2013 METHYLPREDNISOLONE 40 MG INJ CPT-4: J1030 08/27/2013 TRIAMCINOLONE ACET INJ NOS CPT-4: J3301 08/27/2013 THER/PROPH/DIAG INJ SC/IM CPT-4: 43498 06/23/2013 METHYLPREDNISOLONE 40 MG INJ CPT-4: J1030 06/23/2013 TRIAMCINOLONE ACET INJ NOS CPT-4: J3301 06/23/2013 THER/PROPH/DIAG INJ SC/IM CPT-4: 11650 05/26/2013 METHYLPREDNISOLONE 40 MG INJ CPT-4: J1030 05/26/2013 TRIAMCINOLONE ACET INJ NOS CPT-4: J3301 05/26/2013 ROUTINE VENIPUNCTURE CPT-4: 15339 03/05/2013 ASSAY OF FREE THYROXINE CPT-4: 42483 03/05/2013 ASSAY THYROID STIM HORMONE CPT-4: 14146 03/05/2013 COMPREHEN METABOLIC PANEL CPT-4: 80909 03/05/2013 COMPLETE CBC W/AUTO DIFF WBC CPT-4: 43075 03/05/2013 A1C GLYCOSYLATED HEMOGLOBIN TEST CPT-4: 51545 013 DRAIN/INJECT JOINT/BURSA CPT-4: 39551 12/04/2012 METHYLPREDNISOLONE 40 MG INJ CPT-4: J1030 12/04/2012 TRIAMCINOLONE ACET INJ NOS CPT-4: J3301 12/04/2012 CEFTRIAXONE SODIUM INJECTION CPT-4: J0696 11/21/2012 THER/PROPH/DIAG INJ SC/IM CPT-4: 69651 11/21/2012 THER/PROPH/DIAG INJ SC/IM CPT-4: 26982 10/14/2012 METHYLPREDNISOLONE 40 MG INJ CPT-4: J1030 10/14/2012 TRIAMCINOLONE ACET INJ NOS CPT-4: J3301 10/14/2012 URINALYSIS NONAUTO W/O SCOPE CPT-4: 41432 09/27/2012 ROUTINE VENIPUNCTURE CPT-4: 56819 09/25/2012 ASSAY OF FREE THYROXINE CPT-4: 29323 09/25/2012 ASSAY THYROID STIM HORMONE CPT-4: 90295 09/25/2012 COMPREHEN METABOLIC PANEL CPT-4: 58884 09/25/2012 COMPLETE CBC W/AUTO DIFF WBC CPT-4: 99362 09/25/2012 C-REACTIVE PROTEIN CPT-4: 70995 09/25/2012 THER/PROPH/DIAG INJ SC/IM CPT-4: 75309 08/29/2012 METHYLPREDNISOLONE 40 MG INJ CPT-4: J1030 08/29/2012 TRIAMCINOLONE ACET INJ NOS CPT-4: J3301 08/29/2012 DESTRUCT PREMALG LESION (Cryosurgery) CPT-4: 87124 THER/PROPH/DIAG INJ SC/IM CPT-4: 90135 05/06/2012 METHYLPREDNISOLONE 40 MG INJ CPT-4: J1030 05/06/2012 TRIAMCINOLONE ACET INJ NOS CPT-4: J3301 05/06/2012 VITAMIN B 12 FOLIC ACID CPT-4: 04911|28613 05/06/2012 RBC SED RATE AUTOMATED CPT-4: 23411 05/06/2012 ROUTINE VENIPUNCTURE CPT-4: 23903 05/06/2012 ASSAY OF FREE THYROXINE CPT-4: 31119 05/06/2012 ASSAY THYROID STIM HORMONE CPT-4: 06821 05/06/2012 COMPREHEN METABOLIC PANEL CPT-4: 74722 05/06/2012 COMPLETE CBC W/AUTO DIFF WBC CPT-4: 49385 05/06/2012 ASSAY OF BLOOD/URIC ACID CPT-4: 57459 05/06/2012 THER/PROPH/DIAG INJ SC/IM CPT-4: 02991 03/19/2012 KETOROLAC TROMETHAMINE INJ CPT-4: J1885 03/19/2012 KETOROLAC TROMETHAMINE INJ CPT-4: J1885 01/30/2012 THER/PROPH/DIAG INJ SC/IM CPT-4: 97323 01/30/2012 PROMETHAZINE HCL INJECTION CPT-4: J2550 01/30/2012 THER/PROPH/DIAG INJ SC/IM CPT-4: 03304 01/24/2012 METHYLPREDNISOLONE 40 MG INJ CPT-4: J1030 01/24/2012 TRIAMCINOLONE ACET INJ NOS CPT-4: J3301 01/24/2012 THER/PROPH/DIAG INJ SC/IM CPT-4: 09087 09/13/2011 KETOROLAC TROMETHAMINE INJ CPT-4: J1885 09/13/2011 THER/PROPH/DIAG INJ SC/IM CPT-4: 68534 09/13/2011 PROMETHAZINE HCL INJECTION CPT-4: J2550 09/13/2011 CEFTRIAXONE SODIUM INJECTION CPT-4: J0696 07/20/2011 THER/PROPH/DIAG INJ SC/IM CPT-4: 78070 07/20/2011 THER/PROPH/DIAG INJ SC/IM CPT-4: 52799 07/20/2011 METHYLPREDNISOLONE INJECTION CPT-4: J2930 07/20/2011 URINALYSIS NONAUTO W/O SCOPE CPT-4: 80445 05/09/2011 CEFTRIAXONE SODIUM INJECTION CPT-4: J0696 05/09/2011 THER/PROPH/DIAG INJ SC/IM CPT-4: 88069 05/09/2011 THER/PROPH/DIAG INJ SC/IM CPT-4: 78212 05/09/2011 PROMETHAZINE HCL INJECTION CPT-4: J2550 05/09/2011 HYDRATION IV INFUSION INIT CPT-4: 96405 05/09/2011 DESTRUCT PREMALG LESION (Cryosurgery) CPT-4: 33587 DESTRUCT PREMALG LES 2-14 CPT-4: 66625 07/19/2010 REMOVAL OF SKIN TAGS <W/15 CPT-4: 29598 05/30/2010 THER/PROPH/DIAG INJ SC/IM CPT-4: 43472 04/05/2010 CEFTRIAXONE SODIUM INJECTION CPT-4: J0696 04/05/2010 TRIAMCINOLONE ACET INJ NOS CPT-4: J3301 04/05/2010 METHYLPREDNISOLONE 40 MG INJ CPT-4: J1030 04/05/2010 THER/PROPH/DIAG INJ SC/IM CPT-4: 06543 04/05/2010 TRIAMCINOLONE ACET INJ NOS CPT-4: J3301 03/09/2010 METHYLPREDNISOLONE 40 MG INJ CPT-4: J1030 03/09/2010 THER/PROPH/DIAG INJ SC/IM CPT-4: 73111 03/09/2010 THER/PROPH/DIAG INJ SC/IM CPT-4: 26792 03/09/2010 CEFTRIAXONE SODIUM INJECTION CPT-4: J0696 03/09/2010 [...] 1: 132/80 Code: 8480-6 BMI: 35.8 Code: 51789-8 Heart Rate 1: 88 bpm Height: 5'4" Respiratory Rate: 20 bpm SpO2: 95% Tempera ture: 36.9 (C) / 98.5 (F) Weight: 210 lbs 05/28/2019 Blood Pressure 1: 126/82 Code: 8480-6 BMI: 35.0 Code: 15921-1 Heart Rate 1: 88 bpm Height: 5'4" [...] 1: 128/90 Code: 8480-6 BMI: 37.2 Code: 26693-0 Heart Rate 1: 84 bpm Height: 5'4" Respiratory Rate: 20 bpm SpO2: 95% Tempera ture: 36.6 (C) / 97.8 (F) Weight: 217 lbs 08/27/2018 Blood Pressure 1: 128/88 Code: 8480-6 BMI: 38.3 Code: 60654-8 Heart Rate 1: 84 bpm Height: 5'4" [...] 1: 119/72 Code: 8480-6 BMI: 37.4 Code: 51323-2 Heart Rate 1: 82 bpm Height: 5'4" Respiratory Rate: 12 bpm SpO2: 94% Tempera ture: 35.2 (C) / 95.4 (F) Weight: 218 lbs 12/18/2017 Blood Pressure 1: 128/86 Code: 8480-6 BMI: 37.8 Code: 95677-8 Heart Rate 1: 84 bpm Height: 5'4" [...] 1: 128/82 Code: 8480-6 BMI: 35.5 Code: 67000-3 Heart Rate 1: 84 bpm Height: 5'4" [...] 1: 128/82 Code: 8480-6 BMI: 30.2 Code: 97268-8 Heart Rate 1: 80 bpm Height: 5'4" [...] 1: 128/86 Code: 8480-6 BMI: 32.8 Code: 72102-1 Heart Rate 1: 66 bpm Height: 5'4" Respiratory Rate: 18 bpm Temperature: 36 .3 (C) / 97.3 (F) Weight: 191 lbs 06/23/2013 Blood Pressure 1: 132/94 Code: 8480-6 BMI: 34.0 Code: 53165-7 Heart Rate 1: 84 bpm Height: 5'4" Respiratory Rate: 20 bpm Temperature: 36 .8 (C) / 98.2 (F) Weight: 198 lbs 05/26/2013 Blood Pressure 1: 114/80 Code: 8480-6 BMI: 35.0 Code: 84085-2 Heart Rate 1: 80 bpm Height: 5'4" Respiratory Rate: 20 bpm Temperature: 36 .4 (C) / 97.6 (F) Weight: 204 lbs 04/16/2013 Blood Pressure 1: 114/82 Code: 8480-6 BMI: 36.7 Code: 44862-9 Heart Rate 1: 84 bpm Height: 5'4" Respiratory Rate: 20 bpm Temperature: 36 .7 (C) / 98.0 (F) Weight: 214 lbs 03/05/2013 Blood Pressure 1: 136/90 Code: 8480-6 BMI: 37.1 Code: 20821-9 Heart Rate 1: 84 bpm Height: 5'4" [...] 1: 168/114 Code: 8480-6 BMI: 36.2 Code: 58915-3 Heart Rate 1: 104 bpm Height: 5'4" Respiratory Rate: 20 bpm Temperature: 36 .8 (C) / 98.2 (F) Weight: 211 lbs 11/22/2012 Blood Pressure 1: 128/90 Code: 8480-6 Heart Rate 1: 88 bpm Respiratory Rate: 20 bpm SpO2: 96% Temperature: 36.8 (C) / 98.2 (F) 11/21/2012 Blood Pressure 1: 146/100 Code: 8480-6 BMI: 35.7 Code: 87971-2 Heart Rate 1: 96 bpm Height: 5'4" [...] 1: 138/100 Code: 8480-6 BMI: 35.7 Code: 84281-9 Heart Rate 1: 96 bpm Height: 5'4" Respiratory Rate: 20 bpm Temperature: 36 .8 (C) / 98.2 (F) Weight: 208 lbs 05/06/2012 Blood Pressure 1: 154/102 Code: 8480-6 BMI: 34.7 Code: 75692-7 Heart Rate 1: 116 bpm Height: 5'4" Respiratory Rate: 20 bpm Temperature: 36 .8 (C) / 98.2 (F) Weight: 202 lbs 04/03/2012 Blood Pressure 1: 134/94 Code: 8480-6 BMI: 34.8 Code: 81707-1 Heart Rate 1: 108 bpm Height: 5'4" Respiratory Rate: 20 bpm Temperature: 36 .8 (C) / 98.2 (F) Weight: 203 lbs 03/19/2012 Blood Pressure 1: 148/106 Code: 8480-6 BMI: 35.0 Code: 47276-6 Heart Rate 1: 100 bpm Height: 5'4" Respiratory Rate: 20 bpm Temperature: 36 .6 (C) / 97.9 (F) Weight: 204 lbs 02/22/2012 Blood Pressure 1: 146/94 Code: 8480-6 He art Rate 1: 88 bpm 02/21/2012 Blood Pressure 1: 172/120 Code: 8480-6 B lood Pressure 2: 152/106 Code: 8480-6 Heart Rate 1: 116 bpm 02/20/2012 Blood Pressure 1: 160/100 Code: 8480-6 BMI: 32.0 Code: 09990-8 Heart Rate 1: 84 bpm Height: 5'7" Temperature: 36.5 (C) / 97.7 (F) Weight: 204 lbs 01/30/2012 Blood Pressure 1: 152/110 Code: 8480-6 BMI: 32.0 Code: 19179-1 Heart Rate 1: 116 bpm Height: 5'7" Respiratory Rate: 20 bpm Temperature: 37 .0 (C) / 98.6 (F) Weight: 204 lbs 01/24/2012 Blood Pressure 1: 146/100 Code: 8480-6 BMI: 32.0 Code: 13284-1 Heart Rate 1: 100 bpm Height: 5'7" Respiratory Rate: 20 bpm Temperature: 36 .7 (C) / 98.0 (F) Weight: 204 lbs 01/10/2012 Blood Pressure 1: 156/94 Code: 8480-6 BMI: 32.6 Code: 92262-0 Heart Rate 1: 72 bpm Height: 5'7" Respiratory Rate: 20 bpm Temperature: 36 .8 (C) / 98.2 (F) Weight: 208 lbs 12/11/2011 Blood Pressure 1: 146/100 Code: 8480-6 Heart Rat e 1: 116 bpm Height: 5'7" Respiratory Rate: 20 bpm Temperature: 36.9 (C) / 98.4 (F) We ight: 11/09/2011 Blood Pressure 1: 148/96 Code: 8480-6 BMI: 32.1 Code: 17823-6 Heart Rate 1: 116 bpm Height: 5'7" Respiratory Rate: 20 bpm Temperature: 36 .7 (C) / 98.0 (F) Weight: 205 lbs 09/13/2011 Blood Pressure 1: 126/88 Code: 8480-6 Heart Rate 1: 88 bpm Height: 5'7" Respiratory Rate: 20 bpm Temperature: 36.9 (C) / 98.4 (F) We ight: 08/31/2011 Blood Pressure 1: 118/82 Code: 8480-6 BMI: 32.0 Code: 02127-9 Heart Rate 1: 80 bpm Height: 5'7" Temperature: 36.4 (C) / 97.6 (F) Weight: 204 lbs 07/06/2011 Blood Pressure 1: 128/86 Code: 8480-6 BMI: 30.9 Code: 05666-2 Heart Rate 1: 92 bpm Height: 5'7" Respiratory Rate: 20 bpm Temperature: 36 .9 (C) / 98.4 (F) Weight: 197 lbs 06/06/2011 Blood Pressure 1: 112/74 Code: 8480-6 BMI: 31.0 Code: 22364-8 Heart Rate 1: 72 bpm Height: 5'7" [...] 1: 128/92 Code: 8480-6 BMI: 33.6 Code: 59013-6 Heart Rate 1: 104 bpm Height: 5'4" [...] Check-up Encounters Encounter Performer Location Codes Date ([id number]) OFFICE/OUTPATIENT VISIT EST Diagnosis: Type 2 diabetes mellitus with hyperglycemia[ICD10: E11.65] María Elena Hicks [employer] CPT-4: 86765 11/20/2019 ([id number]) OFFICE/OUTPATIENT VISIT EST Diagnosis: Ingrowing nail[ICD10: L60.0] Diagnosis: Type 2 diabetes mellitus with hyperglycemia[ICD10: E11.65] Kathleen Nadia APPIAH [employer] CPT-4: 24768 10/07/2019 ([id number]) OFFICE/OUTPATIENT VISIT EST Diagnosis: DM w/o complication type II, uncontrolled[ICD10: E11.65] Diagnosis: Hypertriglyceridemia[ICD10: E78.1] Diagnosis: Essential hypertension[ICD10: I10] María Elena Waymindimaryjane APPIAH [facility] CPT-4: 34388 09/30/2019 ([id number]) NURSE/OUTPATIENT VISIT EST Diagnosis: Essential (primary) hypertension[ICD10: I10] Diagnosis: Cervicalgia[ICD10: M54.2] Diagnosis: Hyperglycemia, unspecified[ICD10: R73.9] Diagnosis: Mixed hyperlipidemia[ICD10: E78.2] María Elenagael BASURTO TED APPIAH [employer] CPT-4: 10087 09/29/2019 ([id number]) OFFICE/OUTPATIENT VISIT EST Diagnosis: Essential (primary) hypertension[ICD10: I10] Diagnosis: Fall from bed, sequela[ICD10: W06.XXXS] María Elenamarcella Appiah KYLAH BRAUNGAEL Fabiola APPIAH [employer] CPT-4: 57069 05/28/2019 ([id number]) NURSE/OUTPATIENT VISIT EST Diagnosis: Essential (primary) hypertension[ICD10: I10] María Elena Orendmaryjane APPIAH [employer] CPT-4: 09390 05/19/2019 ([id number]) OFFICE/OUTPATIENT VISIT EST Diagnosis: Essential (primary) hypertension[ICD10: I10] Diagnosis: Type 2 diabetes mellitus with hyperglycemia[ICD10: E11.65] Diagnosis: Intervertebral disc disorders with radiculopathy, 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] Diagnosis: Hormone replacement therapy[ICD10: Z79.890] María Elena MONTEROQUELINE Fabiola APPIAH [employer] CPT-4: 32697 01/22/2019 ([id number]) OFFICE/OUTPATIENT VISIT EST Diagnosis: Essential (primary) hypertension[ICD10: I10] Diagnosis: Type 2 diabetes mellitus with hyperglycemia[ICD10: E11.65] María Elena APPIAH [employer] CPT-4: 77771 09/30/2018 ([id number]) OFFICE/OUTPATIENT VISIT EST Diagnosis: Pain in left elbow[ICD10: M25.522] Diagnosis: Acute stress reaction[ICD10: F43.0] Diagnosis: Primary insomnia[ICD10: F51.01] Diagnosis: Abnormal weight gain[ICD10: R63.5] María Elena APPIAH [facility] CPT-4: 96410 08/27/2018 ([id number]) OFFICE/OUTPATIENT VISIT EST Diagnosis: Acute recurrent sinusitis, unspecified[ICD10: J01.91] Diagnosis: Follicular disorder, unspecified[ICD10: L73.9] Diagnosis: Tinea corporis[ICD10: B35.4] María Elena APPIAH [facility] CPT-4: 38944 08/09/2018 ([id number]) OFFICE/OUTPATIENT VISIT EST Diagnosis: Tinea corporis[ICD10: B35.4] Diagnosis: Anxiety disorder, unspecified[ICD10: F41.9] Diagnosis: Menopausal and female climacteric states[ICD10: N95.1] María Elena APPIAH [facility] CPT-4: 39905 07/22/2018 ([id number]) NURSE/OUTPATIENT VISIT EST Diagnosis: Cellulitis of right toe[ICD10: L03.031] María Elena APPIAH [facility] CPT-4: 92823 06/19/2018 ([id number]) OFFICE/OUTPATIENT VISIT EST Diagnosis: Cellulitis of right toe[ICD10: L03.031] [facility] CPT[facility]: 53927 06/17/2018 ([id number]) OFFICE/OUTPATIENT VISIT EST Diagnosis: Migraine without aura, intractable, without status migrainosus[ICD10: G43.019] Diagnosis: Zoster without complications[ICD10: B02.9] Kathleen APPIAH [facility] CPT-4: 64737 05/16/2018 ([id number]) OFFICE/OUTPATIENT VISIT EST Diagnosis: Cellulitis of right lower limb[ICD10: L03.115] Kathleen APPIAH [facility] CPT-4: 79128 03/20/2018 ([id number]) OFFICE/OUTPATIENT VISIT EST Diagnosis: Cellulitis of right lower limb[ICD10: L03.115] Kathleen APPIAH [facility] CPT-4: 75307 03/18/2018 ([id number]) OFFICE/OUTPATIENT VISIT EST Diagnosis: Cellulitis of right lower limb[ICD10: L03.115] Kathleen APPIAH [facility] CPT-4: 42251 03/15/2018 ([id number]) OFFICE/OUTPATIENT VISIT EST Diagnosis: Acute sinusitis, unspecified[ICD10: J01.90] Kathleen APPIAH [facility] CPT-4: 51831 02/11/2018 ([id number]) NURSE/OUTPATIENT VISIT EST Diagnosis: Otitis media, unspecified, right ear[ICD10: H66.91] María Elena APPIAH [facility] CPT-4: 11807 02/01/2018 ([id number]) OFFICE/OUTPATIENT VISIT EST Diagnosis: Acute suppurative otitis media without spontaneous rupture of ear drum, left ear[ICD10: H66.002] Diagnosis: Abnormal weight gain[ICD10: R63.5] Diagnosis: Intervertebral disc disorders with radiculopathy, 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] Kathleen APPIAH [facility] CPT-4: 99 214 01/30/2018 ([id number]) PREV VISIT EST AGE 40-64 Diagnosis: Encounter for general adult medical examination without abnormal findings[ICD10: Z00.00] Diagnosis: Essential (primary) hypertension[ICD10: I10] Diagnosis: Mixed hyperlipidemia[ICD10: E78.2] Diagnosis: Type 2 diabetes mellitus with hyperglycemia[ICD10: E11.65] Diagnosis: 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] María Elena APPIAH [facility] CPT-4: 05618 12/18/2017 ([id number]) OFFICE/OUTPATIENT VISIT EST Diagnosis: Cellulitis of right toe[ICD10: L03.031] Diagnosis: Mixed hyperlipidemia[ICD10: E78.2] Diagnosis: Essential (primary) hypertension[ICD10: I10] Diagnosis: Hyperglycemia, unspecified[ICD10: R73.9] Diagnosis: Nontoxic goiter, 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] María Elena APPIAH [employer] CPT-4: 11089 12/10/2017 ([id number]) OFFICE/OUTPATIENT VISIT EST Diagnosis: Cellulitis of right toe[ICD10: L03.031] Diagnosis: Acute sinusitis, unspecified[ICD10: J01.90] Kathleen APPIAH DO [facility] CPT-4: 01453 12/07/2017 OFFICE/OUTPATIENT VISIT EST Diagnosis: Acute maxillary sinusitis, unspecified[ICD10: J01.00] Kathleen APPIAH DO [facility] CPT-4: 30581 10/08/2017 ([id number]) OFFICE/OUTPATIENT VISIT EST Diagnosis: Cellulitis of left toe[ICD10: L03.032] María Elena APPIAH DO [facility] CPT-4: 65579 09/21/2017 ([id number]) OFFICE/OUTPATIENT VISIT EST Diagnosis: Insomnia, unspecified[ICD10: G47.00] Diagnosis: Major depressive disorder, single episode, unspecified[ICD10: F32.9] Diagnosis: Anxiety disorder, unspecified[ICD10: F41.9] Diagnosis: Cellulitis of left toe[ICD10: L03.032] Diagnosis: Snoring[ICD10: R06.83] Kathleen APPIAH DO 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] Diagnosis: Primary insomnia[ICD10: F51.01] Diagnosis: Other fatigue[ICD10: R53.83] María Elena APPIAH DO [facility] CPT-4: 14678 04/10/2017 ([id number]) OFFICE/OUTPATIENT VISIT EST Diagnosis: Primary insomnia[ICD10: F51.01] Diagnosis: Localized edema[ICD10: R60.0] Diagnosis: 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] María Elena APPIAH [employer] CPT-4: 02328 12/13/2016 ([id number]) OFFICE/OUTPATIENT VISIT EST Diagnosis: Primary insomnia[ICD10: F51.01] Diagnosis: Cyanosis[ICD10: R23.0] María Elena Bazzi [employer] [employer] CPT-4: 18378 11/01/2016 ([id number]) PREV VISIT EST AGE 40-64 Diagnosis: Encounter for gynecological examination (general) (routine) without abnormal findings[ICD10: Z01.419] Diagnosis: Encounter for routine child health examination without abnormal findings[ICD10: Z00.129] María Elena APPIAH [employer] [employer] CPT-4: 15733 10/17/2016 ([id number]) OFFICE/OUTPATIENT VISIT EST Diagnosis: Other seasonal allergic rhinitis[ICD10: J30.2] María Elena APPIAH [employer] CPT-4: 61514 10/10/2016 ([id number]) OFFICE/OUTPATIENT VISIT EST Diagnosis: Pain in left arm[ICD10: M79.602] Diagnosis: Contact with and (suspected) exposure to potentially hazardous body fluids[ICD10: Z77.21] Diagnosis: 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, 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] Diagnosis: Unspecified open wound, right foot, sequela[ICD10: S91.301S] María Elena APPIAH [employer] CPT-4: 76121 09/19/2016 ([id number]) OFFICE/OUTPATIENT VISIT EST Diagnosis: Chronic sinusitis, unspecified[ICD10: J32.9] Diagnosis: Allergic rhinitis due to pollen[ICD10: J30.1] María Elena APPIAH [employer] CPT-4: 62966 08/24/2016 ([id number]) OFFICE/OUTPATIENT VISIT EST Diagnosis: Acute bronchitis, unspecified[ICD10: J20.9] María Elena APPIAH DO [facility] CPT-4: 39372 08/16/2016 ([id number]) OFFICE/OUTPATIENT VISIT EST Diagnosis: Otitis media, unspecified, right ear[ICD10: H66.91] Diagnosis: Acute bronchitis, unspecified[ICD10: J20.9] María Elena APPIAH DO [facility] CPT-4: 96888 08/10/2016 ([id number]) OFFICE/OUTPATIENT VISIT EST Diagnosis: Acute recurrent sinusitis, unspecified[ICD10: J01.91] Diagnosis: Allergic rhinitis due to pollen[ICD10: J30.1] María Elena APPIAH DO [facility] CPT-4: 20121 08/02/2016 ([id number]) OFFICE/OUTPATIENT VISIT EST Diagnosis: Pain in unspecified joint[ICD10: M25.50] María Elena APPIAH DO [facility] CPT-4: 61679 07/27/2016 OFFICE/OUTPATIENT VISIT EST Diagnosis: 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] Diagnosis: Acute recurrent sinusitis, unspecified[ICD10: J01.91] Diagnosis: Other fatigue[ICD10: R53.83] Diagnosis: Primary insomnia[ICD10: F51.01] Diagnosis: Pain in unspecified joint[ICD10: M25.50] María Elena APPIAH DO [facility] CPT-4: 12527 07/20/2016 ([id number]) OFFICE/OUTPATIENT VISIT EST Diagnosis: Blister (nonthermal), left great toe, initial encounter[ICD10: S90.422A] Loan APPIAH DO [facility] CPT-4: 05721 ([id number]) OFFICE/OUTPATIENT VISIT EST Diagnosis: Acute recurrent sinusitis, unspecified[ICD10: J01.91] María Elena APPIAH DO [facility] CPT-4: 10472 05/25/2016 ([id number]) OFFICE/OUTPATIENT VISIT EST Diagnosis: Acute sinusitis, unspecified[ICD10: J01.90] María Elena APPIAH DO [facility] CPT-4: 86789 04/26/2016 ([id number]) OFFICE/OUTPATIENT VISIT EST Diagnosis: Flushing[ICD10: R23.2] Diagnosis: Primary insomnia[ICD10: F51.01] María Elena APPIAH DO [facility] CPT-4: 81430 03/02/2016 ([id number]) OFFICE/OUTPATIENT VISIT EST Diagnosis: Other seasonal allergic rhinitis[ICD10: J30.2] Loan APPIAH DO [facility] CPT-4: 06078 02/09/2016 ([id number]) OFFICE/OUTPATIENT VISIT EST Diagnosis: Primary insomnia[ICD10: F51.01] Diagnosis: Urinary tract infection, site not specified[ICD10: N39.0] María Elena APPIAH DO [facility] CPT-4: 97741 01/24/2016 ([id number]) OFFICE/OUTPATIENT VISIT EST Diagnosis: Other specified disorders of Eustachian tube, bilateral[ICD10: H69.83] Diagnosis: Allergic rhinitis, unspecified[ICD10: J30.9] Loan APPIAH DO [facility] CPT-4: 46931 12/23/2015 ([id number]) OFFICE/OUTPATIENT VISIT EST Diagnosis: Acute recurrent sinusitis, unspecified[ICD10: J01.91] Diagnosis: 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] Diagnosis: Allergic rhinitis, unspecified[ICD10: J30.9] María Elena APPIAH DO [facility] CPT-4: 19300 12/08/2015 ([id number]) OFFICE/OUTPATIENT VISIT EST Diagnosis: Allergic rhinitis, unspecified[ICD10: J30.9] Diagnosis: Pain in unspecified joint[ICD10: M25.50] María Elena APPIAH DO [facility] CPT-4: 83883 10/07/2015 ([id number]) OFFICE/OUTPATIENT VISIT EST Diagnosis: Essential (primary) hypertension[ICD10: I10] María Elena APPIAH DO [facility] CPT-4: 87738 10/06/2015 OFFICE/OUTPATIENT VISIT EST Diagnosis: Localized enlarged lymph nodes[ICD10: R59.0] Diagnosis: Local infection of the skin and subcutaneous tissue, unspecified[ICD10: L08.9] June APPIAH DO [facility] CPT- 4: 06343 09/14/2015 ([id number]) OFFICE/OUTPATIENT VISIT EST Diagnosis: Essential (primary) hypertension[ICD10: I10] Diagnosis: Actinic keratosis[ICD10: L57.0] María Elena APPIAH DO [facility] CPT-4: 03409 09/07/2015 ([id number]) OFFICE/OUTPATIENT VISIT EST Diagnosis: Essential (primary) hypertension[ICD10: I10] Diagnosis: Acute stress reaction[ICD10: F43.0] María Elena APPIAH [facility] CPT-4: 48614 08/18/2015 ([id number]) OFFICE/OUTPATIENT VISIT EST Diagnosis: Essential (primary) hypertension[ICD10: I10] María Elena APPIAH [facility] CPT-4: 11138 07/07/2015 ([id number]) OFFICE/OUTPATIENT VISIT EST Diagnosis: Essential (primary) hypertension[ICD10: I10] María Elena APPIAH DO [facility] CPT-4: 05703 06/24/2015 ([id number]) OFFICE/OUTPATIENT VISIT EST Diagnosis: Essential (primary) hypertension[ICD10: I10] María Elena PAPIAH DO [facility] CPT-4: 57715 06/21/2015 ([id number]) OFFICE/OUTPATIENT VISIT EST Diagnosis: Essential (primary) hypertension[ICD10: I10] Diagnosis: Mixed hyperlipidemia[ICD10: E78.2] Diagnosis: Acute stress reaction[ICD10: F43.0] Diagnosis: Primary insomnia[ICD10: F51.01] María Elena APPIAH DO [facility] CPT-4: 85500 06/16/2015 ([id number]) OFFICE/OUTPATIENT VISIT EST Diagnosis: INSOMNIA NOS[ICD9: 780.52] Diagnosis: HYPERTENSION[ICD9: 401.9] Diagnosis: Stress reaction[ICD9: 308.9] María Elena APPIAH DO [facility] CPT-4: 25653 06/02/2015 ([id number]) OFFICE/OUTPATIENT VISIT EST Diagnosis: HYPERTENSION[ICD9: 401.9] Diagnosis: Stress reaction[ICD9: 308.9] María Elena APPIAH DO [facility] CPT-4: 88507 05/20/2015 ([id number]) OFFICE/OUTPATIENT VISIT EST Diagnosis: Skin lesion[ICD9: 709.9] 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] María Elena APPIAH DO [facility] CPT-4: 71554 05/10/2015 ([id number]) OFFICE/OUTPATIENT VISIT EST Diagnosis: SINUSITIS, ACUTE[ICD9: 461.9] Diagnosis: ALLERGIC RHINITIS[ICD9: 477.9] Diagnosis: DERMATITIS NOS[ICD9: 692.9] María Elena REHMAN [facility] CPT-4: 45996 03/16/2015 OFFICE/OUTPATIENT VISIT EST Diagnosis: Otitis media[ICD9: 382.9] Diagnosis: SINUSITIS, ACUTE[ICD9: 461.9] June Sandra MARÍA ELENA APPIAH DO [facility] CPT-4: 38909 09/11/2014 ([id number]) OFFICE/OUTPATIENT VISIT EST Diagnosis: HYPERLIPIDEMIA NEC/NOS[ICD9: 272.4] María Elena APPIAH DO [facility] CPT-4: 55922 08/31/2014 ([id number]) OFFICE/OUTPATIENT VISIT EST Diagnosis: - I - HYPERTENSION[ICD9: 401.9] Diagnosis: HYPERLIPIDEMIA NEC/NOS[ICD9: 272.4] María Elena APPIAH DO [facility] CPT-4: 09760 08/27/2014 ([id number]) OFFICE/OUTPATIENT VISIT EST Diagnosis: ABDOMINAL PAIN[ICD9: 789.00] Diagnosis: DYSPEPSIA[ICD9: 536.8] Diagnosis: Thoracic back pain[ICD9: 724.1] María Elena APPIAH DO [facility] CPT-4: 90546 07/21/2014 ([id number]) OFFICE/OUTPATIENT VISIT EST Diagnosis: ALLERGIC RHINITIS[ICD9: 477.9] María Elena APPIAH DO [facility] CPT-4: 60900 07/15/2014 ([id number]) OFFICE/OUTPATIENT VISIT EST Diagnosis: EDEMA[ICD9: 782.3] Diagnosis: Chronic insomnia[ICD9: 780.52] María Elena APPIAH [facility] CPT-4: 64877 05/18/2014 ([id number]) OFFICE/OUTPATIENT VISIT EST Diagnosis: Thyromegaly[ICD9: 240.9] Diagnosis: - I - HYPERTENSION[ICD9: 401.9] Diagnosis: ROUTINE MEDICAL EXAM[ICD9: V70.0] Diagnosis: EDEMA[ICD9: 782.3] María Elena APPIAH [facility] CPT-4: 82635 05/14/2014 OFFICE/OUTPATIENT VISIT EST Diagnosis: BRONCHITIS, ACUTE[ICD9: 466.0] Diagnosis: SINUSITIS, ACUTE[ICD9: 461.9] María Elena APPIAH [facility] CPT-4: 90570 04/21/2014 OFFICE/OUTPATIENT VISIT EST Diagnosis: SINUSITIS, ACUTE[ICD9: 461.9] June Flores MARÍA ELENA APPIAH [facility] CPT-4: 93832 03/04/2014 ([id number]) OFFICE/OUTPATIENT VISIT EST Diagnosis: VACCINE FOR TDAP[ICD10: Z23] María Elena APPIAH [facility] CPT-4: 73781 02/27/2014 ([id number]) OFFICE/OUTPATIENT VISIT EST Diagnosis: Seborrheic keratoses, inflamed[ICD9: 702.11] Diagnosis: ACTINIC KERATOSIS[ICD9: 702.0] Diagnosis: INSOMNIA NOS[ICD9: 780.52] María Elena PANDYA [facility] CPT-4: 87000 01/13/2014 OFFICE/OUTPATIENT VISIT EST 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] Diagnosis: ALLERGIC RHINITIS[ICD9: 477.9] Diagnosis: Serous otitis media[ICD9: 381.4] María Elena WAYNDER [facility] CPT-4: 96650 12/24/2013 ([id number]) OFFICE/OUTPATIENT VISIT EST Diagnosis: SINUSITIS, ACUTE[ICD9: 461.9] Diagnosis: ALLERGIC RHINITIS[ICD9: 477.9] 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] María Elena APPIAH [facility] CPT-4: 89825 11/12/2013 ([id number]) OFFICE/OUTPATIENT VISIT EST Diagnosis: ALLERGIC RHINITIS[ICD9: 477.9] Diagnosis: SINUSITIS, ACUTE[ICD9: 461.9] María Elena APPIAH [facility] CPT-4: 12832 10/21/2013 ([id number]) OFFICE/OUTPATIENT VISIT EST Diagnosis: ASYMPTOMATIC VARICOSE VEINS[ICD9: 454.9] Diagnosis: INSOMNIA NOS[ICD9: 780.52] [facility]: 83060 09/22/2013 OFFICE/OUTPATIENT VISIT EST Diagnosis: SINUSITIS, ACUTE[ICD9: 461.9] June APPIAH [facility] CPT-4: 68285 08/27/2013 ([id number]) OFFICE/OUTPATIENT VISIT EST Diagnosis: CEPHALGIA[ICD9: 784.0] Diagnosis: CEPHALGIA, TENSION[ICD9: 307.81] 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] María Elena APPIAH [facility] CPT-4: 93431 08/04/2013 ([id number]) OFFICE/OUTPATIENT VISIT EST Diagnosis: Cervicalgia[ICD9: 723.1] Diagnosis: SPASM OF MUSCLE[ICD9: 728.85] Diagnosis: CEPHALGIA, TENSION[ICD9: 307.81] María Elena APPIAH [facility] CPT-4: 91795 07/23/2013 ([id number]) OFFICE/OUTPATIENT VISIT EST 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] Diagnosis: ALLERGIC RHINITIS[ICD9: 477.9] María Elena APPIAH [facility] CPT-4: 89570 06/23/2013 ([id number]) OFFICE/OUTPATIENT VISIT EST Diagnosis: ALLERGIC RHINITIS[ICD9: 477.9] Diagnosis: ACUTE SEROUS OTITIS MEDIA[ICD9: 381.01] 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] María Elena Seamusdawn JUARES AlanJj TD [facility] CPT-4: 39858 05/26/2013 ([id number]) OFFICE/OUTPATIENT VISIT EST Diagnosis: HYPERTENSION[ICD9: 401.9] Diagnosis: EDEMA[ICD9: 782.3] Diagnosis: Serous otitis media[ICD9: 381.4] María Elena Seamusdawn JUARES AlanJj TD [facility] CPT-4: 34764 04/16/2013 ([id number]) OFFICE/OUTPATIENT VISIT EST Diagnosis: SINUSITIS, ACUTE[ICD9: 461.9] Diagnosis: ALLERGIC RHINITIS[ICD9: 477.9] Diagnosis: EDEMA[ICD9: 782.3] Diagnosis: Thyromegaly[ICD9: 240.9] Diagnosis: MALAISE AND FATIGUE[ICD9: 780.79] María Elena Lopez AlanJj [facility] CPT-[facility]: 57681 03/05/2013 ([id number]) OFFICE/OUTPATIENT VISIT EST Diagnosis: PAIN, LOWER BACK[ICD9: 724.2] Diagnosis: SPASM OF MUSCLE[ICD9: 728.85] María Elena JUARES AlanJj [facility] CPT-4: 03490 12/23/2012 OFFICE/OUTPATIENT VISIT EST Diagnosis: Low back pain[ICD9: 724.2] Lashawn Hicks [facility]: 14730 12/16/2012 ([id number]) OFFICE/OUTPATIENT VISIT EST Diagnosis: PAIN, LOWER BACK[ICD9: 724.2] Diagnosis: SCIATICA[ICD9: 724.3] Diagnosis: Lumbar herniated disc[ICD9: 722.10] María Elena COLON AlanJj [facility] CPT-4: 56836 12/09/2012 ([id number]) OFFICE/OUTPATIENT VISIT EST Diagnosis: PAIN, LOWER BACK[ICD9: 724.2] Diagnosis: SCIATICA[ICD9: 724.3] Diagnosis: LUMBAR DISC DISPLACEMENT[ICD9: 722.10] María Elenamarcella MONTEROLui APPIAH DO [facility] CPT-4: 42135 12/04/2012 OFFICE/OUTPATIENT VISIT EST Diagnosis: Pneumonia[ICD9: 486] Mary SerranoNomanJames APPIAH DO [facility] CPT-4: 70851 11/22/2012 ([id number]) OFFICE/OUTPATIENT VISIT EST Diagnosis: PNEUMONIA, ORGANISM[ICD9: 486] Diagnosis: Exacerbation of RAD (reactive airway disease)[ICD9: 493.92] María Elena APPIAH DO [facility] CPT-4: 18306 11/21/2012 OFFICE/OUTPATIENT VISIT EST Diagnosis: HYPERTENSION[ICD9: 401.9] Diagnosis: Cephalgia[ICD9: 784.0] Lashawn Eckert MARÍA ELENA APPIAH DO [facility] CPT-4: 98174 10/29/2012 ([id number]) OFFICE/OUTPATIENT VISIT EST Diagnosis: MALAISE AND FATIGUE[ICD9: 780.79] Diagnosis: ARTHRALGIA-MULTIPLE SITES[ICD9: 719.49] María Elena Waymindimaryjane APPIAH DO [facility] CPT-4: 37918 10/14/2012 ([id number]) OFFICE/OUTPATIENT VISIT EST Diagnosis: URINARY FREQUENCY[ICD9: 788.41] María Elena APPIAH DO [facility] CPT-4: 82946 09/27/2012 ([id number]) OFFICE/OUTPATIENT VISIT EST Diagnosis: MALAISE AND FATIGUE[ICD9: 780.79] Diagnosis: ARTHRALGIA-MULTIPLE SITES[ICD9: 719.49] María Elena Seamusdawn KYLAH APPIAH DO [facility] CPT-4: 69317 09/25/2012 ([id number]) OFFICE/OUTPATIENT VISIT EST Diagnosis: SINUSITIS, ACUTE[ICD9: 461.9] 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] María Elena Marivelmaryjane MAÍRA ELENA APPIAH DO [facility] CPT-4: 51045 08/29/2012 OFFICE/OUTPATIENT VISIT EST Diagnosis: ACTINIC KERATOSIS[ICD9: 702.0] Diagnosis: Inflamed seborrheic keratosis[ICD9: 702.11] Diagnosis: Skin cancer of face[ICD9: 173.31] Diagnosis: HYPERTENSION[ICD9: 401.9] María Elena WAY NDER [facility] CPT-4: 70012 08/12/2012 ([id number]) OFFICE/OUTPATIENT VISIT EST Diagnosis: ARTHRALGIA-MULTIPLE SITES[ICD9: 719.49] Diagnosis: GOUT[ICD9: 274.9] Diagnosis: HYPERTENSION[ICD9: 401.9] Diagnosis: Tachycardia[ICD9: 785.0] Mraía Elena HU KARLOS [facility] CPT-4: 20320 05/06/2012 ([id number]) OFFICE/OUTPATIENT VISIT EST Diagnosis: INSOMNIA NOS[ICD9: 780.52] María Elena PANDYA [facility] CPT-4: 89131 04/03/2012 ([id number]) OFFICE/OUTPATIENT VISIT EST Diagnosis: INSOMNIA NOS[ICD9: 780.52] Diagnosis: HYPERTENSION[ICD9: 401.9] Diagnosis: MIGRAINE NOS/NOT INTRCBL[ICD9: 346.90] María Elena [facility]IN SJj [facility]: 87829 03/19/2012 ([id number]) OFFICE/OUTPATIENT VISIT EST Diagnosis: CELLULITIS[ICD9: 682.9] Diagnosis: Ankle pain[ICD9: 719.47] Diagnosis: HYPERTENSION[ICD9: 401.9] María Elena WAY NDER [facility] CPT-4: 36679 02/20/2012 ([id number]) OFFICE/OUTPATIENT VISIT EST Diagnosis: MIGRAINE NOS/NOT INTRCBL[ICD9: 346.90] Diagnosis: Vomiting[ICD9: 787.03] María Elena ValdesJj MARIVELE R [facility] CPT-4: 64903 01/30/2012 ([id number]) OFFICE/OUTPATIENT VISIT EST Diagnosis: EDEMA[ICD9: 782.3] Diagnosis: HYPERTENSION[ICD9: 401.9] Diagnosis: ALLERGIC RHINITIS[ICD9: 477.9] Diagnosis: ARTHRALGIA-MULTIPLE SITES[ICD9: 719.49] María Elena ValdesJj APPIAH [facility] CPT-4: 53383 01/24/2012 ([id number]) OFFICE/OUTPATIENT VISIT EST Diagnosis: SPASM OF MUSCLE[ICD9: 728.85] Diagnosis: Thoracic back pain[ICD9: 724.1] Diagnosis: Cervical pain[ICD9: 723.1] María Elena PANDYA [facility] CPT-4: 59717 01/10/2012 OFFICE/OUTPATIENT VISIT EST Diagnosis: PAIN, LOWER BACK[ICD9: 724.2] Diagnosis: LUMBAR DISC DISPLACEMENT[ICD9: 722.10] María Elena APPIAH [facility] CPT-4: 04146 12/11/2011 OFFICE/OUTPATIENT VISIT EST Diagnosis: MIGRAINE NOS/NOT INTRCBL[ICD9: 346.90] Diagnosis: SINUSITIS, ACUTE[ICD9: 461.9] María Elena APPIAH [facility] CPT-4: 43863 11/09/2011 OFFICE/OUTPATIENT VISIT EST Diagnosis: MIGRAINE NOS/NOT INTRCBL[ICD9: 346.90] Diagnosis: LYMPHADENOPATHY[ICD9: 785.6] María Elena APPIAH [facility] CPT-4: 46200 09/13/2011 OFFICE/OUTPATIENT VISIT EST Diagnosis: MALAISE AND FATIGUE[ICD9: 780.79] Diagnosis: ARTHRALGIA-MULTIPLE SITES[ICD9: 719.49] María Elena Waymindimaryjane BRAUNGAEL aFbiola APPIAH [facility] CPT-4: 96245 08/31/2011 OFFICE/OUTPATIENT VISIT EST Diagnosis: SINUSITIS, ACUTE[ICD9: 461.9] María Elena APPIAH [facility] CPT-4: 16467 07/20/2011 OFFICE/OUTPATIENT VISIT EST Diagnosis: HYPERTENSION[ICD9: 401.9] Diagnosis: PAIN, LOWER BACK[ICD9: 724.2] Diagnosis: SPASM OF MUSCLE[ICD9: 728.85] María Elena APIPAH [facility] CPT-4: 96040 07/06/2011 OFFICE/OUTPATIENT VISIT EST Diagnosis: MIGRAINE NOS/NOT INTRCBL[ICD9: 346.90] Diagnosis: HYPERTENSION[ICD9: 401.9] María Elena [facility] CPT-4: 89008 05/22/2011 OFFICE/OUTPATIENT VISIT EST Diagnosis: SINUSITIS, ACUTE[ICD9: 461.9] Diagnosis: MIGRAINE NOS/NOT INTRCBL[ICD9: 346.90] Diagnosis: Dehydration[ICD9: 276.51] Diagnosis: Vomiting[ICD9: 787.03] María Elena Hicks [facility] CPT-4: 47395 05/09/2011 ([id number]) OFFICE/OUTPATIENT VISIT EST María Elena ISAAC [facility] CPT-4: 57745 02/14/2011 ([id number]) OFFICE/OUTPATIENT VISIT EST María Elena ISAAC [facility] CPT-4: 34463 02/03/2011 ([id number]) OFFICE/OUTPATIENT VISIT EST María Elena ISAAC [facility] CPT-4: 87028 01/31/2011 ([id number]) OFFICE/OUTPATIENT VISIT EST María Elena ISAAC [facility] CPT-4: 38336 01/25/2011 ([id number]) OFFICE/OUTPATIENT VISIT EST María Elena ISAAC [facility] CPT-4: 07687 01/18/2011 ([id number]) OFFICE/OUTPATIENT VISIT EST María Elena ISAAC [facility] CPT-4: 57957 11/29/2010 ([id number]) OFFICE/OUTPATIENT VISIT, EST María Elena REED [facility] CPT-4: 03342 10/10/2010 ([id number]) OFFICE/OUTPATIENT VISIT, EST María Elena MONTERO QUELINE [facility] CPT-4: 37478 06/07/2010 ([id number]) OFFICE/OUTPATIENT VISIT, EST María Elenamarcella RBAUNLINE [facility] CPT-4: 58667 04/27/2010 ([id number]) OFFICE/OUTPATIENT VISIT, EST María Elena BRAUNLINE [facility] CPT-4: 15226 04/05/2010 ([id number]) OFFICE/OUTPATIENT VISIT, EST María Elena [facility] CPT-4: 97432 03/09/2010 ([id number]) OFFICE/OUTPATIENT VISIT, EST María Elena [facility] CPT-4: 83925 03/03/2010 ([id number]) OFFICE/OUTPATIENT VISIT, EST María Elena [facility] CPT-4: 12068 01/17/2010 ([id number]) PREV VISIT, EST, AGE 40-64 María Elena [facility] CPT-4: 24826 12/27/2009 Plan of Care Planned Activity Notes Codes Status Date Visit Diagnosis Plan: Type 2 diabetes mellitus with hy perglycemia Discussion: Januvia 100mg daily Glimepride 2mg po BID Accuchecks BID Call in 2 weeks with BS readings Get formulary book ICD-9 : 250.02 ICD-10 : E11.65 11/20/2019 Patient Education: glimepiride- [employer] Coupon [id number] Completed 11/20/2019 Patient Education: Januvia- [employer] Coupon [id number] Completed 11/20/2019 Visit Diagnosis Plan: Ingrowing nail [...] ICD-10 : E11.65 10/07/2019 Appointment: Kathleen Zuniga [address] [place], [place] [id number] OFFICE SURGERY 10/07/2019 Visit Diagnosis Plan: [...] : E11.65 09/30/2019 Appointment: María Elena Appiahtel: [address] [place], [place] [phone] [place] CHECK UP 09/30/2019 Patient Education: Premarin- [employer] Coupon [id number] https://www.[employer].com/samplemd/resources/getResource/61/97475i74-h983-9htm-a9 Completed 09/30/2019 Appointment: María Elena Appiah WPtel: [address] [place], [place] [phone] [place] LAB 09/29/2019 Appointment: María Elena Appiah WPtel: [address] [place], [place] [phone] [place] Won't have the new insurance till [...] : W06.XXXS 05/28/2019 Appointment: María Elena Appiahtel: [address] [place], [place] [phone] [place] FOLLOW UP 05/28/2019 Appointment: María Elena Appiah WPtel: [address] [place], [place] [phone] [place] BP CHECK 05/19/2019 Visit Diagnosis Plan: [...] : Z79.890 01/22/2019 Appointment: María Elena Appiahtel: [address] [place], [place] [phone] [place] FOLLOW UP 01/22/2019 Patient Education: estradiol- [employer] Coupon [id number] https://www.[employer]/samplemd/resources/getResource/61/035p723a-7am5-7c39-6a Completed 01/22/2019 Appointment: María Elena Appiahtel: [address] [place], [place] [phone] [place] CANCELED 01/20/2019 Appointment: María Elena Appiahl: [address] [place], [place] [phone] [place] LM NO SHOW 01/06/2019 Appointment: María Elena Appiah WPtel: [address] [place], [place] [phone] [place] CANCELED 10/17/2018 Appointment: María Elena Appiah WPtel: [address] [place] [address] [place] BP CHECK 10/09/2018 Visit Diagnosis Plan: [...] I10 09/30/2018 Appointment: María Elena Appiah WPtel: [address] [place] [address] [place] FOLLOW UP 09/30/2018 Visit Diagnosis Plan: [...] : F51.01 08/27/2018 Appointment: María Elena Appiahtel: [address] [place], [place] [phone] ACUTE ILLNESS 08/27/2018 Appointment: María Elena Appiah WPtel: [address] [place] [address] [place] Patient stated she went out to [...] Tyle... 08/09/2018 Appointment: María Elena Appiah WPtel: [address] [place] [address] ACUTE ILLNESS 08/09/2018 Appointment: María Elena Appiah WPtel: [address] [place] [address] NO SHOW 08/08/2018 Visit Diagnosis Plan: Anxiety [...] B35.4 07/22/2018 Appointment: María Elena Appiah WPtel: [address] [place] [address] ACUTE ILLNESS 07/22/2018 Appointment: María Elena Appiah WPtel: [address] [place] [address] [place] INJECTION 06/19/2018 Patient Education: Patient Medication [...] ICD-10 : L03.031 06/17/2018 Appointment: Kathleen Zuniga [address] [place] [address] ACUTE ILLNESS 06/17/2018 Patient Education: Patient Medication [...] ICD-10 : B02.9 05/16/2018 Appointment: Kathleen Zuniga [address] [place], [place] [address] ACUTE ILLNESS 05/16/2018 Patient Education: Patient Medication [...] ICD-10 : L03.115 03/20/2018 Appointment: Kathleen Zuniga [address] [place], [place] [address] FOLLOW UP 03/20/2018 Patient Education: Patient Medication [...] ICD-10 : L03.115 03/18/2018 Appointment: Kathleen Zuniga [address] [place] [address] FOLLOW UP 03/18/2018 Patient Education: Patient Medication [...] ICD-10 : L03.115 03/15/2018 Appointment: Kathleen Zuniga [address] [place], [place] [address] ACUTE ILLNESS 03/15/2018 Patient Education: Patient Medication [...] : J01.90 02/11/2018 Appointment: Kathleen Zuniga [address] [place], [place] [phone] ACUTE ILLNESS 02/11/2018 Patient Education: Patient Medication Summary Completed 02/11/2018 Appointment: María Elena Appiah WPtel: [phone] [phone] INJECTION 02/01/2018 Patient Education: Patient Medication Summary [...] ICD-10 : M51.16 01/30/2018 Appointment: Kathleen Zuniga [address] [place] [address] ACUTE ILLNESS 01/30/2018 Patient Education: Patient Medication [...] 12/18/2017 Appointment: María Elena Appiah WPtel: [phone] [id number] Annual Well Visit 12/18/2017 Patient Education: Patient Medication Summary Completed 12/18/2017 Care Plan: Referral Order SNOMED-CT : [id number] Pending 12/18/2017 Appointment: María Elena Appiah WPtel: [phone] [id number] [place] INJECTION 12/10/2017 Patient Education: Patient Medication [...] ICD-10 : L03.031 12/07/2017 Appointment: Kathleen Zuniga [address] [place] [address] ACUTE ILLNESS 12/07/2017 Patient Education: Patient Medication [...] ICD-10 : J01.00 10/08/2017 Appointment: Kathleen Zuniga [address] [place] [address] ACUTE ILLNESS 10/08/2017 Patient Education: Patient Medication Summary Completed 10/08/2017 Appointment: María Elena Appiah WPtel: [phone] [id number] [place] INJECTION 09/21/2017 Patient Education: Patient Medication [...] ICD-10 : R06.83 09/20/2017 Appointment: Kathleen Zuniga [address] [place], [place] [phone] ACUTE ILLNESS 09/20/2017 Patient Education: Patient [...] : L60.0 08/29/2017 Appointment: Kathleen Zuniga [address] [place] [address] OFFICE SURGERY 08/29/2017 Patient Education: Patient Medication Summary Completed 08/29/2017 Visit Diagnosis Plan: Actinic keratosis Discussion: Cr yotherapy as above ICD-9 : 702.0 ICD-10 : L57.0 08/01/2017 Appointment: María Elena Appiah WPtel: [address] [place] [address] OFFICE SURGERY 08/01/2017 Patient Education: Patient Medication Summary Completed 08/01/2017 Appointment: María Elena Appiah WPtel: [address] [place] [address] PATIENT THOUGHT APPOINTMENT WAS TOMORROW 07/26/17 CALLED 15 MINUTES BEFORE APPT TO SAY SHE DIDN'T HAVE ANYONE TO COVER HER BUSINESS AND WOULD NOT MAKE IT NO SHOW 07/25/2017 Visit Diagnosis Plan: Cellulitis of left toe Discussio n: Clindamycin and notify if worsening or persistis ICD-9 : 681.10 ICD-10 : L03.032 07/19/2017 Appointment: María Elena Appiah WPtel: [address] [place], [place] [address] MEDICATION REVIEW 07/19/2017 Patient Education: Patient Medication Summary Completed 07/19/2017 Appointment: María Elena Appiah WPtel: [address] [place], [place] [phone] CANCELED 07/04/2017 Visit Diagnosis Plan: Generalized hyperhidrosis Discus ian: CBC, CMP, TSH, free T4 ordered to assess. will review labs. ICD-9 : 780.8 ICD-10 : R61 06/27/2017 Visit Diagnosis Plan: Chronic sinusitis, unspecified D iscussion: Referral sent to dr. albarado in [place] per patient request. patient has been treated multiple times for sinus infections with no recovery. patient was seen by dr sanchez in the past with no interventions. patient has deviated septum which may be affecting her sinuses. 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, including hip Discussion: Shave removal of above lesio n--sent to pathology ICD-9 : 216.7 ICD-10 : D23.72 01/24/2017 Appointment: María Elena Appiah WPtel: [address] [place], [place] [phone] 01/23 confirmed ~sl OFFICE SURGERY 01/24/2017 Patient Education: Patient Medication Summary Completed 01/24/2017 Appointment: Loan Sánchez [address] [place], [place] [id number] 01/09 rescheduled~sl RESCHEDULED 01/15/2017 Visit Diagnosis Plan: [...] 12/13/2016 App[facility]ment: [facility] [phone] [id number] [place] 12/12 confirmed ~ MEDICATION REVIEW 12/13/2016 Patient Education: Patient Medication Summary Completed 12/13/2016 Appointment: [facility] [phone] [id number] [place] rescheduled for 12/13/16 at 11am RESCHEDULED 0 12/06/2016 Appointment: María [facility] [phone] [id number] [place] CANCELED 11/23/2016 Patient Education: Patient Medication [...] 11/01/2016 Appointment: María [facility] [phone] [id number] [place] 10/31 lm `sl 11/01 lm`sl MEDICATION REVIEW 017 Patient Education: Patient Medication Summary Completed 11/01/2016 Referral: Canelo Overton WPtel: [phone] [id number] [place] Referral Initiated 10/30/2016 Visit Diagnosis Plan: [...] 10/17/2016 Appointment: María Elena Appiah WPtel: [address] [place], [place] [phone] 10/16 confirmed ~sl PAP 10/17/2016 Patient Education: Patient Medication Summary Completed 10/17/2016 Care Plan: MAMMOGRAM SCREENING LOINC : 2 6347-5 Pending 10/17/2016 Visit Diagnosis Plan: Other seasonal allergic rhinitis Discussion: Decadron/Garamycin Nasal [place] Mix Too soon for steroid Retry zyrtec 10mg daily ICD-9 : 477.9 ICD-10 : J30.2 10/10/2016 Appointment: María Elena Appiah WPtel: [address] [place], [place] [phone] [place] FOLLOW UP 10/10/2016 Patient Education: Patient Medication Summary Completed 10/10/2016 Appointment: María Elena Appiah WPtel: [address] [place], [place] [phone] 10/02 reschedule `sl RESCHEDULED 10/02/2016 Visit Plan: See surgery for removal of n ew left arm lesion and right foot lesion Lyrica to use next month for left arm paresthesias Continue current meds Discussed sunscreen/sunblock combo 09/19/2016 Appointment: María Elena Appiah WPtel: [address] [place], [place] [phone] 09/18 confirmed ~sl FOLLOW UP 09/19/2016 Patient Education: Patient Medication Summary Completed 09/19/2016 Patient Education: Patient Medication Summary Completed 09/18/2016 Care Plan: MAMMOGRAM BOTH BREASTS LOINC : 18169-6 Pending 09/18/2016 Visit Plan: Discussed that needs [...] sinuses 08/24/2016 Appointment: María Elena Appiah WPtel: [address] [place] [address] ACUTE ILLNESS 08/24/2016 Patient Education: Patient Medication Summary Completed 08/24/2016 Patient Education: Patient Medication Summary Completed 08/23/2016 Care Plan: MAMMOGRAM SCREENING LOINC : 2 6347-5 Pending 08/23/2016 Visit Plan: Finish doxycycline Add Breo 100/25 1 p BID for 2 weeks If not improving within next 2 days will get CXR 08/16/2016 Appointment: María Elena Appiah WPtel: [address] [place] [address] ACUTE ILLNESS 08/16/2016 Patient Education: Patient Medication Summary Completed 08/16/2016 Visit Plan: Supportive care. Rest, Fluid s, Tylenol/Motrin prn fever or bodyaches. Notify if worsening symptoms. Doxycyline and Prednisone 08/10/2016 Appointment: María Elena Appiah WPtel: [address] [place] [address] 08/09 lm`sl....confirmed-sp FOLLOW UP 09/2015 Patient Education: Patient Medication Summary Completed 08/10/2016 Visit Plan: Saline nasal flushes prn. Ty lenol/Motrin prn headache. Notify if persists/symptoms worsening. Dexamethasone 8mg IM today May use coricedan and mucinex 08/02/2016 Appointment: María Elena Appiah WPtel: [address] [place] [address] ACUTE ILLNESS 08/02/2016 Patient Education: Patient Medication Summary Completed 08/02/2016 Visit Plan: Cryotherapy as above and lef t forearm lesion removal as above with 5-0 punch biopsy and sent to path Return in 10 days for suture removal 08/01/2016 Appointment: María Elena Appiah WPtel: [address] [place], [place] [phone] 07/31 confirmed`~sl OFFICE SURGERY 08/01/2016 Patient Education: Patient Medication Summary Completed 08/01/2016 Visit Plan: Stop clindamycin Check CBC, CMP, ESR now/STAT 07/27/2016 Appointment: María Elena Appiah WPtel: [address] [place], [place] [id number] ACUTE ILLNESS 07/27/2016 Patient Education: Patient Medication Summary Completed 07/27/2016 Visit Plan: Update lab and check ABIs to start with Will likely need cardiology evaluation to rule out PVD Clindamycin for 10 days Daily yogurt or probiotic Will return for removal of left arm lesions 07/20/2016 Appointment: María Elena Appiah WPtel: [address] [place], [place] [phone] ACUTE ILLNESS 07/20/2016 Patient Education: Patient Medication Summary Completed 07/20/2016 Patient Education: Patient Medication Summary Completed 07/20/2016 Care Plan: MAMMOGRAM BOTH BREASTS LOINC : 19769-4 Pending 07/20/2016 Care Plan: US EXAM CHEST LOINC : 58193-1 Pending 07/20/2016 Visit Plan: Wound culture collected from left great toe Appearance is somewhat staph like Rx as above Wound cleanser and skin care reviewed May need to add oral antibiotic if sores do not heal or continue to reoccur 07/06/2016 Appointment: Loan Sánchez [address] [place], [place] [phone] ACUTE ILLNESS 07/06/2016 Patient Education: Patient Medication Summary Completed 07/06/2016 Appointment: María Elena Appiah WPtel: [address] [place], [place] [phone] [place] INJECTION 05/25/2016 Patient Education: Patient Medication Summary Completed 05/25/2016 Visit Plan: Saline nasal flushes prn. Ty lenol/Motrin prn headache. Notify if persists/symptoms worsening. Dexamethasone and Rocephin given 04/26/2016 Appointment: María Elena Appiah WPtel: [address] [place] [address] ACUTE ILLNESS 04/26/2016 Patient Education: Patient Medication Summary Completed 04/26/2016 Visit Plan: Check CBC, CMP, TSH, FreeT4, HbA1C, estradiol, lipids in AM 03/02/2016 Appointment: María Elena Appiah WPtel: [address] [place] [address] 03/01 lm~sl ACUTE ILLNESS 03/02/2016 Patient Education: Patient Medication Summary Completed 03/02/2016 Visit Plan: Exam is nearly normal Needs to be taking daily antihistamine Would prefer to use oral steroids instead of shot but patient insist that oral steroids cause horrible headaches for her Will given kenalog IM instead 02/09/2016 Appointment: Loan Sánchez [address] [place] [address] ACUTE ILLNESS 02/09/2016 Patient Education: Patient Medication Summary Completed 02/09/2016 Visit Plan: Culture urine Macrobid DC xa nax Trial of Ativan 1mg q HS 01/24/2016 Appointment: María Elena Appiah WPtel: [address] [place] [address] ACUTE ILLNESS 01/24/2016 Patient Education: Patient Medication Summary Completed 01/24/2016 Visit Plan: No steroid or rocephin injec tion warranted Can have oral prednisone Continue current home regimen Needs to follow up with Dr Sanchez if problems persist 12/23/2015 Appointment: Loan Sánchez [address] [place] [address] ACUTE ILLNESS 12/23/2015 Patient Education: Patient Medication Summary Completed 12/23/2015 Visit Plan: Saline nasal flushes prn. Ty lenol/Motrin prn headache. Notify if persists/symptoms worsening. Kenalog 40mg IM today 12/08/2015 Appointment: María Elena Appiah WPtel: [address] [place] [address] 12/06 confirmed~sl ACUTE ILLNESS 12/08/2015 Patient Education: Patient Medication Summary Completed 12/08/2015 Appointment: María Elena Appiah WPtel: [address] [place] [address] ACUTE ILLNESS 11/18/2015 Patient Education: Patient Medication Summary Completed 10/11/2015 Appointment: María Elena Appiah WPtel: [address] [place], [place] [phone] [place] INJECTION 10/07/2015 Patient Education: Patient Medication Summary Completed 10/07/2015 Visit Plan: Check renal arterial doppler s and ECHO Change amlodopine to lotrel 5/20mg q HS Will need stress test as well Check CMP, uric acid, ESR 10/06/2015 Appointment: María Elena Appiah WPtel: [address] [place] [address] ACUTE ILLNESS 10/06/2015 Patient Education: Patient Medication Summary Completed 10/06/2015 Patient Education: [facility] - Saving Auto[employer]j - Amlodipine Besylate - 18-64 - Dynamic Portal ID Completed 10/06/2015 Appointment: MaríaE lena Appiah WPtel: [address] [place] [address] FOLLOW UP 09/22/2015 Visit Plan: Cephalexin 500 mg PO bid Mery ly topical Mupirocin to lesions on left lateral neck and face Follow-up in one week. Sooner if symptoms worsen 09/14/2015 Appointment: June Flores WPtel: [address] [place], [place] [phone] ACUTE ILLNESS 09/14/2015 Patient Education: Patient Medication Summary Completed 09/14/2015 Visit Plan: Change bystolic to bedtime d osing and amlodopine to morning dosing Cryotherapy as above to AKs 09/07/2015 Appointment: María Elena Appiah WPtel: [address] [place], [place] [phone] 09/06 appointment made and confirmed ~sl FOLLOW UP 09/07/2015 Patient Education: Patient Medication Summary Completed 09/07/2015 Visit Plan: Increase bystolic back to 20 mg daily but will split and take 10mg in AM and 10mg in PM Stress Reducers 08/18/2015 Appointment: María Elena Appiahtel: [address] [place], [place] [phone] 08/17/15 appt confirmed cn ACUTE ILLNESS 08/18 Patient Education: Patient Medication Summary Completed 08/18/2015 Appointment: María Elena Appiah WPtel: [address] [place] [address] BP CHECK 07/07/2015 Patient Education: Patient Medication Summary Completed 07/07/2015 Appointment: María Elena Appiah WPtel: [address] [place] [address] BP CHECK 06/24/2015 Patient Education: Patient Medication Summary Completed 06/24/2015 Appointment: María Elena Appiah WPtel: [address] [place] [address] BP CHECK 06/21/2015 Patient Education: Patient Medication Summary Completed 06/21/2015 Visit Plan: Lab discussed Continue suhail nt meds and lifestyle modification Recheck lab in 6mos 06/16/2015 Appointment: María Elena Appiah WPtel: [address] [place] [address] 06/15 confirmed FOLLOW UP 06/16/2015 Patient Education: Patient Medication Summary Completed 06/16/2015 Patient Education: Patient Medication Summary Completed 06/15/2015 Visit Plan: Increase cymbalta to 60mg q HS Keep clonidine at current dose Recheck 2weeks Change xanax to klonopin 06/02/2015 Appointment: María Elena Appiahtel: [address] [place] [address] 06/02 lm FOLLOW UP 06/02/2015 Patient Education: Patient Medication Summary Completed 06/02/2015 Appointment: María Elena Appiah WPtel: [address] [place] [address] ACUTE ILLNESS 05/24/2015 Visit Plan: Increase clonidine to 0.2mg q HS Add cymbalta 30mg q HS Recheck 2weeks Stress Reducers Check fasting lab Discussed sleep study 05/20/2015 Appointment: María Elena Appiah WPtel: [address] [place] [address] ACUTE ILLNESS 05/20/2015 Patient Education: Patient Medication Summary Completed 05/20/2015 Patient Education: [facility] - Saving [employer] - Cymbalta - 18-64 - Dynamic Portal ID Completed 05/20/2015 Appointment: María Elena Appiah WPtel: [address] [place] [address] BP CHECK 05/19/2015 Patient Education: Patient Medication Summary Completed 05/19/2015 Visit Plan: Topical Bactroban alternatin g with topical betamethasone Recheck 2weeks 05/10/2015 Appointment: María Elena Appiah WPtel: [address] [place] [address] 05/07 vm cn...05/07 appt confirmed OFFICE SURGER Y 05/10/2015 Patient Education: Patient Medication Summary Completed 05/10/2015 Referral: Patrick Chandler WPtel: [address] [facility] [address] Referral Initiated 05/04/2015 Visit Plan: Saline nasal flushes prn. Ty lenol/Motrin prn headache. Notify if persists/symptoms worsening. Depomedrol 40mg IM today 03/16/2015 Appointment: María Elena Appiah WPtel: [address] [place] [address] ACUTE ILLNESS 03/16/2015 Patient Education: Patient Medication Summary Completed 03/16/2015 Appointment: María Elena Appiah WPtel: [address] [place] [address] ER Follow UP 03/09/2015 Visit Plan: Cryotherapy to lesions as ab ove 10/27/2014 Appointment: María Elena Appiah WPtel: [address] [place] [address] OFFICE SURGERY 10/27/2014 Patient Education: Patient Medication Summary Completed 10/27/2014 Appointment: June Flores WPtel: [address] [place] [address] ACUTE ILLNESS 09/11/2014 Patient Education: Patient Medication Summary Completed 09/11/2014 Visit Plan: Lab discussed Lipitor 10mg d aily Coenzyme Q-10 400mg daily Vitamin D3 5000u daily Recheck lipids with LFTs in 3mos then fwup 08/31/2014 Appointment: María Elena Appiah WPtel: [address] [place] [address] 08/28 voicemail FOLLOW UP 08/31/2014 Patient Education: Patient Medication Summary Completed 08/31/2014 Appointment: María Elena Appiah WPtel: [address] [place] [address] US LAB 08/27/2014 Appointment: María Elena Appiah WPtel: [address] [place] [address] US LAB 08/27/2014 Patient Education: Patient Medication Summary Completed 08/27/2014 Appointment: María Elena Appiah WPtel: [address] [place] [address] ACUTE ILLNESS 07/23/2014 Appointment: María Elena Appiah WPtel: [address] [place] [address] ACUTE ILLNESS 07/21/2014 Patient Education: Patient Medication Summary Completed 07/21/2014 Visit Plan: Kenalog 40mg IM today Contin ue narendra and singulair Add Flonase 07/15/2014 Appointment: María Elena Appiah WPtel: [address] [place] [address] ACUTE ILLNESS 07/15/2014 Appointment: María Elena Appiah WPtel: [address] [place], [place] [phone] ACUTE ILLNESS 07/15/2014 Patient Education: Patient Medication Summary Completed 07/15/2014 Visit Plan: Will do metolazone 2.5mg prn with 6 potassium and see if causes as severe cramping Trial of of seroquel XR 50mg q PM with evening meal and let us know how works 05/18/2014 Appointment: María Elena Appiah WPtel: [address] [place], [place] [phone] 05/15 left message FOLLOW UP 05/18/2014 Patient Education: Patient Medication Summary Completed 05/18/2014 Appointment: María Elena Appiah WPtel: [address] [place], [place] [phone] US LAB 05/14/2014 Patient Education: Patient Medication Summary Completed 05/14/2014 Appointment: María Elena Appiah WPtel: [address] [place], [place] [phone] [place] INJECTION 04/22/2014 Visit Plan: Tisha and Miranda today a nd finish abx given from urgent care 04/21/2014 Appointment: María Elena Appiah WPtel: [address] [place], [place] [phone] [place] INJECTION 04/21/2014 Patient Education: Patient Medication Summary Completed 04/21/2014 Appointment: June Flores WPtel: [address] [place], [place] [phone] ACUTE ILLNESS 03/04/2014 Patient Education: Patient Medication Summary Completed 03/04/2014 Appointment: María Elena Appiah WPtel: [address] [place], [place] [phone] [place] INJECTION 02/27/2014 Patient Education: Patient Medication Summary Completed 02/27/2014 Visit Plan: Cryotherapy as above to all lesions Patient wants to try no meds for insomnia for a while and see how goes 01/13/2014 Appointment: María Elena Appiahtel: [address] [place] [address] OFFICE SURGERY 01/13/2014 Patient Education: Patient Medication Summary Completed 01/13/2014 Visit Plan: Stop Melatonin Stop Soma Tri al of trazadone 75mg q HS See ENT for possible tubes as has had chronic ETD and serous otitis media with numerous steroids 12/24/2013 Appointment: María Elena Appiah WPtel: [address] [place] [address] ACUTE ILLNESS 12/24/2013 Patient Education: Patient Medication Summary Completed 12/24/2013 Visit Plan: Saline nasal flushes prn. Ty lenol/Motrin prn headache. Notify if persists/symptoms worsening. 11/12/2013 Appointment: María Elena Appiah WPtel: [address] [place] [address] ACUTE ILLNESS 11/12/2013 Patient Education: Patient Medication Summary Completed 11/12/2013 Appointment: María Elena Appiah WPtel: [address] [place] [address] ACUTE ILLNESS 10/21/2013 Patient Education: Patient Medication Summary Completed 10/21/2013 Visit Plan: Sleep hygiene and sleep rout ine Melatonin 10mg q HS Support stockings and observe 09/22/2013 Appointment: María Elena Appiah WPtel: [address] [place] [address] ACUTE ILLNESS 09/22/2013 Patient Education: Patient Medication Summary Completed 09/22/2013 Appointment: June Flores WPtel: [address] [place] [address] ACUTE ILLNESS 08/27/2013 Patient Education: Patient Medication Summary Completed 08/27/2013 Visit Plan: Proceed with CT scan of head /neck Proceed with occipital nerve injections Butrans 20mcg patch weekly until can get into see Dr. Mcdonough for injections 08/04/2013 Appointment: María Elena Appiah WPtel: [address] [place] [address] FOLLOW UP 08/04/2013 Patient Education: Patient Medication Summary Completed 08/04/2013 Visit Plan: OMT done Daily neck stretche s, moist heat Increase Celebrex to 200mg BID Add flexeril 07/23/2013 Appointment: María Elena Appiah WPtel: [address] [place] [address] 07/22 voicemail FOLLOW UP 07/23/2013 Patient Education: Patient Medication Summary Completed 07/23/2013 Appointment: María Elena Appiah WPtel: [address] [place] [address] ACUTE ILLNESS 06/23/2013 Patient Education: Patient Medication Summary Completed 06/23/2013 Appointment: María Elena Appiah WPtel: [address] [place] [address] ACUTE ILLNESS 05/26/2013 Patient Education: Patient Medication Summary Completed 05/26/2013 Visit Plan: Decrease clonidine to 0.1mg TID If BP remains stable consider decreasing amlodopine Prednisone for 5 days BP check in 1mo 04/16/2013 Appointment: María Elena Appiah WPtel: [address] [place] [address] 04/14 pt called and confirmed appt FOLLOW UP 04/16/2013 Patient Education: Patient Medication Summary Completed 04/16/2013 Appointment: María Elena Appiah WPtel: [address] [place] [address] ACUTE ILLNESS 03/05/2013 Patient Education: Patient Medication Summary Completed 03/05/2013 Visit Plan: Pt has MARIA ELENA on with Dr. Sharonda Matthews patch Refill Hydrocodone early tomorrow 12/23/2012 Appointment: María Elena Appiah WPtel: [address] [place] [address] FOLLOW UP 12/23/2012 Patient Education: Patient Medication Summary Completed 12/23/2012 Appointment: Lashawn Eckert WPtel: [address] [place] [address] ACUTE ILLNESS 12/16/2012 Patient Education: Patient Medication Summary Completed 12/16/2012 Visit Plan: Proceed with updated MRI of LS spine Continue gabapentin and add soma and diclofenac Will likely need to go for another epidural 12/09/2012 Appointment: María Elena Appiah WPtel: [address] [place] [address] ACUTE ILLNESS 12/09/2012 Patient Education: Patient Medication Summary Completed 12/09/2012 Visit Plan: Injection as above Finish me drol dose pack Chiropracter this afternoon 12/04/2012 Appointment: María Elena Appiah WPtel: [address] [place] [address] ACUTE ILLNESS 12/04/2012 Patient Education: Patient Medication Summary Completed 12/04/2012 Appointment: Mary Tillman WPtel: [address] [place] [address] FOLLOW UP 11/22/2012 Patient Education: Patient Medication Summary Completed 11/22/2012 Appointment: María Elena Appiah WPtel: [address] [place] [address] ACUTE ILLNESS 11/21/2012 Patient Education: Patient Medication Summary Completed 11/21/2012 Appointment: María Elena Appiah WPtel: [address] [place] [address] BP CHECK 11/07/2012 Patient Education: Patient Medication Summary Completed 11/07/2012 Visit Plan: reports extra clonidine and extra amlodipine and extra alprazalam. extra Ketolorac and promethazine last night. Bystolic 10 mg QAM and will continue all other blood pressure meds. Pt. encouraged to rest and hydrate. Discussed stroke and [place] symptoms. Pt. instructed to seek ER eval if symptoms worsen or headache persists. Pt. agrees to ER eval/EMS transport if symptoms worsen. BP re-check. 10/29/2012 Appointment: Lashawn Eckert WPtel: [address] [place], [place] [phone] [place] ACUTE ILLNESS 10/29/2012 Patient Education: Patient Medication Summary Completed 10/29/2012 Appointment: María Elena Appiah WPtel: [address] [place] [address] ACUTE ILLNESS 10/14/2012 Patient Education: Patient Medication Summary Completed 10/14/2012 Appointment: María Elena Appiah WPtel: [address] [place] [address] UA 09/27/2012 Patient Education: Patient Medication Summary Completed 09/27/2012 Appointment: María Elena Appiah WPtel: [address] [place] [address] ACUTE ILLNESS 09/25/2012 Patient Education: Patient Medication Summary Completed 09/25/2012 Appointment: María Elena Appiah WPtel: [address] [place] [address] BP CHECK 09/24/2012 Appointment: María Elena Appiah WPtel: [address] [place] [address] ACUTE ILLNESS 08/29/2012 Patient Education: Patient Medication Summary Completed 08/29/2012 Visit Plan: Cryotherapy as above See Karlos m for right ear lesion--probable MOHs procedure Increase amlodopine to 10mg daily 08/12/2012 Appointment: María Elena Appiah WPtel: [address] [place] [address] OFFICE SURGERY 08/12/2012 Patient Education: Patient Medication Summary Completed 08/12/2012 Appointment: María Elena Appiah WPtel: [address] [place] [address] 05/03 vm on pt phone...pt called on 04/11 3 pt called wanting in had no one cancel so could not get her in for an appt sooner than 05/06. ACUTE ILLNESS 05/06/2012 Patient Education: Patient Medication Summary Completed 05/06/2012 Visit Plan: Pt wants to hold on any furt her sleep medications 04/03/2012 Appointment: María Elena Appiah WPtel: [address] [place] [address] FOLLOW UP 04/03/2012 Patient Education: Patient Medication Summary Completed 04/03/2012 Appointment: María Elena Appiah WPtel: [address] [place] [address] FOLLOW UP 03/19/2012 Patient Education: Patient Medication Summary Completed 03/19/2012 Appointment: María Elena Appiah WPtel: [address] [place] [address] BP CHECK 02/22/2012 Patient Education: Patient Medication Summary Completed 02/22/2012 Appointment: María Elena Appiah WPtel: [address] [place] [address] BP CHECK 02/21/2012 Patient Education: Patient Medication Summary Completed 02/21/2012 Visit Plan: Doxycycline and bactroban fo r foot Supportive care on ankles and knees Add norvasc for BP 02/20/2012 Appointment: María Elena Appiah WPtel: [address] [place] [address] ER Follow UP 02/20/2012 Patient Education: Patient Medication Summary Completed 02/20/2012 Appointment: María Elena Appiah WPtel: [address] [place] [address] ACUTE ILLNESS 01/30/2012 Patient Education: Patient Medication Summary Completed 01/30/2012 Appointment: María Elena Appiah WPtel: [address] [place] [address] ACUTE ILLNESS 01/24/2012 Patient Education: Patient Medication Summary Completed 01/24/2012 Visit Plan: Daily back stretches, moist heat, Biofreeze prn OMT done 01/10/2012 Appointment: María Elena Appiah WPtel: [address] [place] [address] ACUTE ILLNESS 01/10/2012 Patient Education: Patient Medication Summary Completed 01/10/2012 Appointment: María Elena Appiahtel: [address] [place] [address] FOLLOW UP 12/11/2011 Patient Education: Patient Medication Summary Completed 12/11/2011 Appointment: María Elena Appiahtel: [address] [place] [address] ACUTE ILLNESS 11/09/2011 Patient Education: Patient Medication Summary Completed 11/09/2011 Appointment: María Elena Appiahtel: [address] [place] [address] ACUTE ILLNESS 09/13/2011 Patient Education: Patient Medication Summary Completed 09/13/2011 Visit Plan: Check CBC, TSH, Free T4, CMP , ESR, Vit D, B12 now Start Prednisone today 08/31/2011 Appointment: María Elena Appiahtel: [address] [place] [address] ACUTE ILLNESS 08/31/2011 Patient Education: Patient Medication Summary Completed 08/31/2011 Appointment: María Elena Appiahtel: [address] [place] [address] US INJECTION 07/20/2011 Patient Education: Patient Medication Summary Completed 07/20/2011 Visit Plan: Continue current meds Monite r BP Cont stretches from PT 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 07/06/2011 Appointment: María Elena Appiahtel: [address] [place] [address] FOLLOW UP 07/06/2011 Patient Education: Patient Medication Summary Completed 07/06/2011 Appointment: María Elena Appiahtel: [address] [place] [address] US BP CHECK 06/06/2011 Patient Education: Patient Medication Summary Completed 06/06/2011 Visit Plan: Add Bystolic at 2.5mg QAM Ad d Robaxin 750mg 2 po q HS BP check in 2wks 05/22/2011 Appointment: María Elena Appiah WPtel: [address] [place] [address] FOLLOW UP 05/22/2011 Patient Education: Patient Medication Summary Completed 05/22/2011 Appointment: María Elena Appiah WPtel: [address] [place] [address] ER Follow UP 05/09/2011 Patient Education: Patient Medication Summary Completed 05/09/2011 Appointment: María Elena Appiah WPtel: [address] [place] [address] FOLLOW UP 02/22/2011 Visit Plan: Rx written for Hydrocodone 1 0/325mg #240 See Ortho 02/14/2011 Appointment: María Elena Appiah WPtel: [facility] [address] OMT 02/14/2011 Patient Education: Patient Medication Summary [...] lab work. 02/03/2011 Appointment: Lashawn Eckert WPtel: [address] [facility] ACUTE ILLNESS 02/03/2011 Patient Education: Patient Medication Summary Completed 02/03/2011 Visit Plan: OMT done Cont daily stretche s 01/31/2011 Appointment: María Elena Appiah WPtel: [address] [place] [address] ACUTE ILLNESS 01/31/2011 Patient Education: Patient Medication Summary Completed 01/31/2011 Visit Plan: Continue pain meds OMT done Proceed with PT No work this summer01/25/2011 Appointment: María Elena Appiah WPtel: [address] [place] [address] ACUTE ILLNESS 01/25/2011 Patient Education: Patient Medication Summary Completed 01/25/2011 Visit Plan: Start PT Long discussion abo ut getting pain meds from only us and can only have max of 4grams of tylenol per day Change to Hydrocodone 10/325mg 1- 2 po TID prn pain--#180 called to Radha 01/18/2011 Appointment: María Elena Appiah WPtel: [address] [place] [address] FOLLOW UP 01/18/2011 Patient Education: Patient Medication Summary Completed 01/18/2011 Visit Plan: Daily back stretches, moist heat, Biofreeze prn 11/29/2010 Appointment: María Elena Appiah WPtel: [address] [place] [address] ER Follow UP 11/29/2010 Patient Education: Patient Medication Summary Completed 11/29/2010 Visit Plan: Saline nasal flushes prn. Ty lenol/Motrin prn headache. Notify if persists/symptoms worsening. Finish augmentin Add Medrol Dose Pack 10/10/2010 Appointment: María Elena Appiah WPtel: [address] [place] [address] ACUTE ILLNESS 10/10/2010 Patient Education: Patient Medication Summary Completed 10/10/2010 Visit Plan: Cryotherapy x3 to multiple l esions on both forearms 07/19/2010 Appointment: María Elena Appiah WPtel: [address] [place] [address] OFFICE SURGERY 07/19/2010 Patient Education: Patient Medication Summary Completed 07/19/2010 Appointment: María Elena Appiah WPtel: [address] [place] [address] [place] BP CHECK 07/06/2010 Patient Education: Patient Medication Summary Completed 07/06/2010 Appointment: María Elena Appiah WPtel: [address] [place], [place] [id number] [place] BP CHECK 06/30/2010 Patient Education: Patient Medication Summary Completed 06/30/2010 Appointment: María Elena Appiah WPtel: [address] [place] [address] BP CHECK 06/20/2010 Patient Education: Patient Medication Summary Completed 06/20/2010 Visit Plan: Change Diovan to Exforge 160 /5mg QD OMT done to thoracics BP check in 2wks 06/07/2010 Appointment: María Elena Appiah WPtel: [address] [place] [address] FOLLOW UP 06/07/2010 Patient Education: Patient Medication Summary Completed 06/07/2010 Appointment: María Elena Appiah WPtel: [address] [place] [address] BP CHECK 06/03/2010 Patient Education: Patient Medication Summary Completed 06/03/2010 Appointment: María Elena Appiah WPtel: [address] [place] [address] BP CHECK 06/01/2010 Patient Education: Patient Medication Summary Completed 06/01/2010 Visit Plan: Irritated skin tags to left neck x2 excised at base with scissors and base cauterized 05/30/2010 Appointment: María Elena Appiah WPtel: [address] [place] [address] OFFICE SURGERY 05/30/2010 Patient Education: Patient Medication Summary Completed 05/30/2010 Visit Plan: Saline nasal flushes prn. Ty lenol/Motrin prn headache. Notify if persists/symptoms worsening. Restart Nasonex Has allergy testing set for May 25 04/27/2010 Appointment: María Elena Appiah WPtel: [address] [place] [address] ACUTE ILLNESS 04/27/2010 Patient Education: Patient Medication Summary Completed 04/27/2010 Visit Plan: Saline nasal flushes prn. Ty lenol/Motrin prn headache. Notify if persists/symptoms worsening. Omnaris BID plus injections 04/05/2010 Appointment: María Elena Appiah WPtel: [address] [place] [address] ACUTE ILLNESS 04/05/2010 Patient Education: Patient Medication Summary Completed 04/05/2010 Visit Plan: Saline nasal flushes prn. Ty lenol/Motrin prn headache. Notify if persists/symptoms worsening. 03/09/2010 Appointment: María Elena Appiah WPtel: [address] [place] [address] ACUTE ILLNESS 03/09/2010 Patient Education: Patient Medication Summary Completed 03/09/2010 Visit Plan: Cont Clonidine as is Cont Pr emarin Fwup with surgery as scheduled 03/03/2010 Appointment: María Elena Appiahtel: [address] [place] [address] FOLLOW UP 03/03/2010 Patient Education: Patient Medication Summary Completed 03/03/2010 Visit Plan: Check Pelvic US now Chelsey Sal C vs Hysterectomy 01/17/2010 Appointment: María Elena Appiahtel: [address] [place] [address] ACUTE ILLNESS 01/17/2010 Patient Education: Patient Medication Summary Completed 01/17/2010 Visit Plan: Check fasting lab and schedu le Mammogram 2gm Na Diet Trial of Ambien 10mg qhs Fwup pending lab results 12/27/2009 Appointment: María Elena Appiah WPtel: [address] [place] [address] ESTABLISHED PATIENT 12/27/2009 Patient Education: Patient Medication Summary Completed 12/27/2009 Referral: Canelo Overton WPtel: [phone] [id number] [place] Referral Initiated Referral: Philipp Flores WPtel: [address] [id number] [place] Referral Appointment Requested Instructions Comment . [...] to rest and hydrate. Discussed stroke and [place] symptoms. Pt. instructed to seek ER eval [...]
--- OUTSIDE RECORDS SUMMARY | 2020-03-13 05:24 | XMS REPORT | CCD ---
Author Author Gale Appiah D.O. Organization [facility] Address [address] [place] [phone] Phone Care Team Providers Care Talking Books Library Clerk Name Role Phone María Elena Appiah D.O., PP Unavailable CCM Unavailable Summary Purpose Interface Exchange Insurance Providers Payer name Policy type / Coverage type Covered democrat ID Effective Begin Date Effective End Date [facility] Commercial Insurance [id number] Unknown Family History Family History data not found Social History Social History Element Codes Description Effective Dates Tobacco history SNOMED CT: 592504697 Never smoker 05/22/2011 Allergies, Adverse Reactions, Alerts [...] Fill Instructions Januvia 100 mg tablet RxNorm: 149462 1 Tablet(s) Oral QD 11/20/2019 0 11/20/2019 Inactive glimepiride 2 mg tablet RxNorm: 696040 1 Tablet(s) Oral two sawyer es a day 11/20/2019 12/20/2019 Active cyclobenzaprine 10 mg tablet RxNorm: 553271 TAKE ONE TA BLET BY MOUTH THREE TIMES A DAY NEEDED FOR MUSCLE SPASMS 11/17/2019 No Stop Date Active doxepin 25 mg capsule RxNorm: 0921112 TAKE ONE CAPSULE B Y MOUTH EVERY NIGHT AT BEDTIME NEEDED FOR SLEEP 11/16/2019 No Stop Date Active Klor-Con 8 mEq tablet,extended release RxNorm: 862100 T FARRUHK ONE TABLET BY MOUTH TWICE A DAY 11/16/2019 No Stop Date Active hydrocodone 10 mg-acetaminophen 325 mg tablet RxNorm: 318628 1-2 Tablet(s) Oral three times a day as needed for pain 11/10/2019 No Stop Date Active cyclobenzaprine 10 mg tablet RxNorm: 220199 TAKE ONE TA BLET BY MOUTH THREE TIMES A DAY NEEDED FOR MUSCLE SPASMS 10/23/2019 11/16/2019 Inactive duloxetine 60 mg capsule,delayed release RxNorm: 218228 1 Capsu le(s) Oral QD 10/17/2019 04/13/2020 Active celecoxib 200 mg capsule RxNorm: 355604 1 Capsule(s) Or al two times a day as needed for pain 10/17/2019 01/14/2020 Active lisinopril 20 mg tablet RxNorm: 282123 1 Tablet(s) Oral QD 10/17/1904/13/2020 Active gabapentin 300 mg capsule RxNorm: 039124 1 Capsule(s) O ral every night at bedtime 10/17/2019 01/15/2020 Active Singulair 10 mg tablet RxNorm: 763843 1 Tablet(s) Oral QD 10/17/2019 04/14/2020 Active metoprolol tartrate 100 mg tablet RxNorm: 313734 1 Tabl et(s) Oral two times a day 10/17/2019 04/13/2020 Active clonidine HCl 0.1 mg tablet RxNorm: 530874 1 Tablet(s) Oral fou r times a day 10/17/2019 04/13/2020 Active Januvia 100 mg tablet RxNorm: 058063 1 Tablet(s) Oral QD 10/17/2019 No Stop Date Active Lipitor 10 mg tablet RxNorm: 407582 1 Tablet(s) Oral QD 10/17/2019 Active Steglatro 15 mg tablet RxNorm: 7536099 1 Tablet(s) Oral QD 10/17/19 No Stop Date Active Klor-Con 8 mEq tablet,extended release RxNorm: 100187 1 Tablet(s) Oral two times a day 10/17/2019 11/15/2019 Inactive Glyxambi 25 mg-5 mg tablet RxNorm: 1458642 1 Tablet(s) Oral QD 01/202010/16/2019 Inactive Patient will bring in copay discount card as well Glyxambi 25 mg-5 mg tablet RxNorm: 9736485 1 Tablet(s) Oral QD 01/202010/14/2019 Inactive Patient will bring in copay discount card as well Keflex 500 mg capsule RxNorm: 281840 1 Capsule(s) Oral two time s a day 10/07/2019 10/14/2019 Inactive Premarin 1.25 mg tablet RxNorm: 988722 1 Tablet(s) Oral QD 09/30/1906/25/2020 Active hydrocodone 10 mg-acetaminophen 325 mg tablet RxNorm: 726169 1-2 Tablet(s) Oral three times a day as needed for pain 09/30/2019 09/30/2019 Inactive baclofen 10 mg tablet RxNorm: 626075 TAKE ONE TABLET BY MOUTH THREE TIMES A DAY NEEDED 09/19/2019 No Stop Date Active gabapentin 300 mg capsule RxNorm: 083455 TAKE ONE CAPSU LE BY MOUTH EVERY NIGHT AT BEDTIME 09/19/2019 10/16/2019 Inactive Klor-Con 8 mEq tablet,extended release RxNorm: 603794 T FARRUKH ONE TABLET BY MOUTH TWICE A DAY 1 Tablet(s) Oral two times a day 09/19/2019 10/16/2019 [place] hydrocodone 10 mg-acetaminophen 325 mg tablet RxNorm: 743147 1-2 Tablet(s) Oral three times a day as needed for pain 09/19/2019 09/29/2019 Inactive triamterene 75 mg-hydrochlorothiazide 50 mg tablet RxNorm: 3 64411 TAKE ONE TABLET BY MOUTH DAILY 09/11/2019 No Stop Date Active allopurinol 300 mg tablet RxNorm: 952310 TAKE ONE TABLET BY LOPEZ TH DAILY 09/11/2019 No Stop Date Active duloxetine 60 mg capsule,delayed release RxNorm: 811255 TAKE ONE CAPSULE BY MOUTH DAILY 09/11/2019 10/16/2019 Inactive Lipitor 10 mg tablet RxNorm: 073989 TAKE ONE TABLET BY MOUTH AT BEDTIME 09/11/2019 10/16/2019 Inactive lisinopril 20 mg tablet RxNorm: 770838 TAKE ONE TABLET BY MOUTH DAILY .... THIS REPLACE 10MG TABLETS 09/11/2019 10/16/2019 Inactive celecoxib 200 mg capsule RxNorm: 854888 TAKE ONE CAPSUL E BY MOUTH TWICE A DAY NEEDED FOR PAIN 09/11/2019 10/16/2019 Inactive clonidine HCl 0.1 mg tablet RxNorm: 655332 TAKE ONE TAB LET BY MOUTH FOUR TIMES A DAY 09/11/2019 10/16/2019 Inactive doxepin 25 mg capsule RxNorm: 2670256 1 Capsule(s) Oral every night at bedtime as needed for sleep 08/21/2019 11/15/2019 Inactive hydrocodone 10 mg-acetaminophen 325 mg tablet RxNorm: 296079 1-2 Tablet(s) PO TID 08/12/2019 09/29/2019 Inactive as needed for pa in - Previous quantity #240, will start dosing for #180 in April 2011 per Doctor Td. Medrol (Dustin) 4 mg tablets in a dose pack RxNorm: 584931 Tablet(s) Oral As Directed 07/21/2019 09/29/2019 Inactive Premarin 1.25 mg tablet RxNorm: 744853 1 Tablet(s) Oral QD 07/02/2009/29/2019 Inactive hydrocodone 10 mg-acetaminophen 325 mg tablet RxNorm: 036959 1-2 Tablet(s) PO TID 07/01/2019 08/11/2019 Inactive as needed for pa in - Previous quantity #240, will start dosing for #180 in April 2011 per Doctor Td. gabapentin 300 mg capsule RxNorm: 649014 1 Capsule(s) PO QHS 201809/18/2019 Inactive celecoxib 200 mg capsule RxNorm: 728813 1 Capsule(s) Or al two times a day as needed for pain 06/27/2019 06/27/2019 Inactive furosemide 40 mg tablet RxNorm: 851328 TAKE ONE TABLET BY MOUTH EVERY MORNING NEEDED FOR EDEMA . TAKE WITH POTASSIUM 06/24/2019 No Stop Date Active doxepin 25 mg capsule RxNorm: 6328492 TAKE ONE CAPSULE B Y MOUTH EVERY NIGHT AT BEDTIME NEEDED FOR SLEEP 06/24/2019 08/20/2019 Inactive Singulair 10 mg tablet RxNorm: 117306 TAKE ONE TABLET BY MOUTH JOSÉ Y 06/24/2019 10/16/2019 Inactive lisinopril 20 mg tablet RxNorm: 077892 TAKE ONE TABLET BY MOUTH DAILY .... THIS REPLACE 10MG TABLETS 06/24/2019 09/10/2019 Inactive nystatin-triamcinolone 100,000 unit/g-0.1 % topical cream Rx Norm: 1606040 1 Application Topical two times a day 06/12/2019 06/19/2019 Inactive apply BID for 1 week nystatin-triamcinolone 100,000 unit/g-0.1 % topical cream Rx Norm: 1834517 1 Application Topical two times a day 06/12/2019 06/11/2019 Inactive apply BID for 1 week hydrocodone 10 mg-acetaminophen 325 mg tablet RxNorm: 535131 1-2 Tablet(s) PO QID as needed for pain MUST LAST 30 DAYS 05/28/2019 06/26/2019 Inactiv e (Response to an electronic controlled substance refill request - RxReferenceNumber: [id number]) baclofen 20 mg tablet RxNorm: 700991 1 Tablet(s) PO TID as needed for muscle spasm 05/19/2019 05/27/2019 Inactive gabapentin 300 mg capsule RxNorm: 229639 1 Capsule(s) PO QHS 201805/27/2019 Inactive lisinopril 20 mg tablet RxNorm: 504795 1 Tablet(s) PO Q D TAKE ONE TABLET BY MOUTH DAILY, REPLACES 10 MG DOSE 05/19/2019 06/23/2019 Inactive doxepin 25 mg capsule RxNorm: 0530392 TAKE ONE CAPSULE B Y MOUTH EVERY NIGHT AT BEDTIME NEEDED FOR SLEEP 05/16/2019 06/14/2019 Inactive lisinopril 20 mg tablet RxNorm: 364866 TAKE ONE TABLET BY MOUTH DAILY, REPLACES 10 MG DOSE 05/16/2019 05/18/2019 Inactive Singulair 10 mg tablet RxNorm: 623696 TAKE ONE TABLET BY MOUTH JOSÉ Y 05/16/2019 06/14/2019 Inactive gabapentin 300 mg capsule RxNorm: 866700 1 Capsule(s) PO QHS 201805/04/2019 Inactive estropipate 1.5 mg tablet RxNorm: 577204 1 Tablet(s) PO QD 05/05/20 19 05/27/2019 Inactive estropipate 1.5 mg tablet RxNorm: 036498 1 Tablet(s) PO QD 05/05/20 19 05/04/2019 Inactive gabapentin 300 mg capsule RxNorm: 624359 1 Capsule(s) PO QHS 201805/18/2019 Inactive hydrocodone 10 mg-acetaminophen 325 mg tablet RxNorm: 720247 1-2 Tablet(s) PO QID as needed for pain MUST LAST 30 DAYS 04/25/2019 05/24/2019 Inactiv e (Response to an electronic controlled substance refill request - RxReferenceNumber: [id number]) cyclobenzaprine 10 mg tablet RxNorm: 607893 TAKE ONE TA BLET BY MOUTH THREE TIMES A DAY NEEDED FOR MUSCLE SPASMS 04/24/2019 05/18/2019 Inactive metoprolol tartrate 100 mg tablet RxNorm: 716474 TAKE O NE TABLET BY MOUTH TWICE A DAY 04/24/2019 10/16/2019 Inactive Lyrica 75 mg capsule RxNorm: 944397 1 Capsule(s) PO QHS 03/25/2019 Inactive duloxetine 60 mg capsule,delayed release RxNorm: 506254 TAKE ONE CAPSULE BY MOUTH DAILY 03/21/2019 05/19/2019 Inactive triamterene 75 mg-hydrochlorothiazide 50 mg tablet RxNorm: 3 08611 TAKE ONE TABLET BY MOUTH DAILY 03/21/2019 05/19/2019 Inactive Klor-Con 8 mEq tablet,extended release RxNorm: 489972 T FARRUKH ONE TABLET BY MOUTH TWICE A DAY 03/21/2019 09/18/2019 Inactive Lipitor 10 mg tablet RxNorm: 201195 TAKE ONE TABLET BY MOUTH AT BEDTIME 03/21/2019 09/10/2019 Inactive clonidine HCl 0.1 mg tablet RxNorm: 701221 TAKE ONE TAB LET BY MOUTH FOUR TIMES A DAY 03/21/2019 05/19/2019 Inactive allopurinol 300 mg tablet RxNorm: 653461 TAKE ONE TABLET BY LOPEZ TH DAILY 03/21/2019 05/19/2019 Inactive hydrocodone 10 mg-acetaminophen 325 mg tablet RxNorm: 228462 1-2 Tablet(s) PO QID as needed for pain MUST LAST 30 DAYS 02/28/2019 03/29/2019 Inactiv e (Response to an electronic controlled substance refill request - RxReferenceNumber: [id number]) furosemide 40 mg tablet RxNorm: 374202 TAKE ONE TABLET BY MOUTH EVERY MORNING NEEDED FOR EDEMA . TAKE WITH POTASSIUM 02/21/2019 03/22/2019 Inactive cyclobenzaprine 10 mg tablet RxNorm: 144938 TAKE ONE TA BLET BY MOUTH THREE TIMES A DAY NEEDED FOR MUSCLE SPASMS 02/21/2019 04/21/2019 Inactive lisinopril 20 mg tablet RxNorm: 793449 TAKE ONE TABLET BY MOUTH DAILY, REPLACES 10 MG DOSE 02/21/2019 05/15/2019 Inactive doxepin 25 mg capsule RxNorm: 7455997 TAKE ONE CAPSULE B Y MOUTH EVERY NIGHT AT BEDTIME NEEDED FOR SLEEP 02/21/2019 05/15/2019 Inactive nystatin 100,000 unit/gram topical cream RxNorm: 283650 APPLY TO AFFECTED AREA(S) TWO TIMES A DAY 02/21/2019 03/22/2019 Inactive estradiol 1 mg tablet RxNorm: 418693 2 Tablet(s) PO QD replaces premarin 01/22/2019 05/04/2019 Inactive lisinopril 20 mg tablet RxNorm: 699311 TAKE ONE TABLET BY MOUTH DAILY, REPLACES 10 MG DOSE 01/20/2019 02/18/2019 Inactive cyclobenzaprine 10 mg tablet RxNorm: 806171 TAKE ONE TA BLET BY MOUTH THREE TIMES A DAY NEEDED FOR MUSCLE SPASMS 01/20/2019 02/18/2019 Inactive metoprolol tartrate 100 mg tablet RxNorm: 160135 TAKE O NE TABLET BY MOUTH TWICE A DAY 01/20/2019 02/18/2019 Inactive cyclobenzaprine 10 mg tablet RxNorm: 629812 TAKE ONE TA BLET BY MOUTH THREE TIMES A DAY NEEDED FOR MUSCLE SPASMS 12/19/2018 01/17/2019 Inactive lisinopril 20 mg tablet RxNorm: 055516 TAKE ONE TABLET BY MOUTH DAILY, REPLACES 10 MG DOSE 12/19/2018 01/17/2019 Inactive duloxetine 60 mg capsule,delayed release RxNorm: 276103 TAKE ONE CAPSULE BY MOUTH DAILY 12/19/2018 01/17/2019 Inactive Lipitor 10 mg tablet RxNorm: 670096 TAKE ONE TABLET BY MOUTH AT BEDTIME 12/19/2018 01/17/2019 Inactive cyclobenzaprine 10 mg tablet RxNorm: 744196 1 Tablet(s) PO TID as needed for muscle spasm 11/19/2018 12/18/2018 Inactive Singulair 10 mg tablet RxNorm: 443305 1 Tablet(s) PO QD 11/19/2018 Inactive lisinopril 20 mg tablet RxNorm: 170600 TAKE ONE TABLET BY MOUTH DAILY, REPLACES 10 MG DOSE 11/15/2018 12/18/2018 Inactive hydrocodone 10 mg-acetaminophen 325 mg tablet RxNorm: 041801 1-2 Tablet(s) PO QID as needed for pain MUST LAST 30 DAYS 11/13/2018 12/12/2018 Inactiv e (Response to an electronic controlled substance refill request - RxReferenceNumber: [id number]) nystatin 100,000 unit/gram topical cream RxNorm: 924124 APPLY TO AFFECTED AREA(S) TWO TIMES A DAY 10/23/2018 11/06/2018 Inactive lisinopril 20 mg tablet RxNorm: 437596 1 Tablet(s) PO QD replac es 10mg dose 10/18/2018 11/14/2018 Inactive hydrocodone 10 mg-acetaminophen 325 mg tablet RxNorm: 528776 1-2 Tablet(s) QID as needed for pain MUST LAST 30 DAYS 10/08/2018 11/06/2018 Inactive (Response to an electronic controlled substance refill request - RxReferenceNumber: [id number]) lisinopril 10 mg tablet RxNorm: 736031 1 Tablet(s) PO QD 10/03/2018 0 01/21/2019 Inactive Celebrex 200 mg capsule RxNorm: 821066 TAKE ONE CAPSULE BY MOUT H TWICE A DAY 09/30/2018 05/04/2019 Inactive cyclobenzaprine 10 mg tablet RxNorm: 865676 TAKE ONE TA BLET BY MOUTH THREE TIMES A DAY NEEDED FOR MUSCLE SPASMS 09/30/2018 11/18/2018 Inactive doxepin 25 mg capsule RxNorm: 8357488 TAKE ONE CAPSULE B Y MOUTH EVERY NIGHT AT BEDTIME NEEDED 09/05/2018 10/16/2018 Inactive omeprazole 40 mg capsule,delayed release RxNorm: 882536 TAKE ONE CAPSULE BY MOUTH DAILY 09/05/2018 01/21/2019 Inactive furosemide 40 mg tablet RxNorm: 882243 TAKE ONE TABLET BY MOUTH EVERY MORNING NEEDED FOR EDEMA . TAKE WITH POTASSIUM 09/05/2018 11/03/2018 Inactive phentermine 37.5 mg tablet RxNorm: 557107 1 Tablet(s) PO QAM 201701/21/2019 Inactive doxepin 25 mg capsule RxNorm: 3844061 1 Capsule(s) PO QH S as needed for sleep TAKE ONE CAPSULE BY MOUTH EVERY NIGHT AT BEDTIME NEEDED 08/27/2018 09/04/2018 Inactive Keflex 500 mg capsule RxNorm: 407895 1 Capsule(s) PO TID 08/09/2018 1 10/19/2017 Inactive Diflucan 100 mg tablet RxNorm: 863527 1 Tablet(s) PO QD 08/09/2018 Inactive Premarin 1.25 mg tablet RxNorm: 952733 2 Tablet(s) PO QD 08/09/2018 0 05/04/2019 Inactive Zofran ODT 4 mg disintegrating tablet RxNorm: 946530 1 Tablet(s) PO Q4H as needed for nausea 08/09/2018 01/21/2019 Inactive metoprolol tartrate 100 mg tablet RxNorm: 283043 TAKE O NE TABLET BY MOUTH TWICE A DAY 2018 10/04/2018 Inactive doxepin 25 mg capsule RxNorm: 5340205 TAKE ONE CAPSULE B Y MOUTH EVERY NIGHT AT BEDTIME NEEDED 2018 08/26/2018 Inactive cyclobenzaprine 10 mg tablet RxNorm: 823171 TAKE ONE TA BLET BY MOUTH THREE TIMES A DAY NEEDED FOR MUSCLE SPASMS 2018 09/29/2018 Inactive hydrocodone 10 mg-acetaminophen 325 mg tablet RxNorm: 925341 1-2 Tablet(s) QID as needed for pain MUST LAST 30 DAYS 07/29/2018 08/27/2018 Inactive (Response to an electronic controlled substance refill request - RxReferenceNumber: [id number]) nystatin 100,000 unit/gram topical powder RxNorm: 218989 Applic ation TOP BID 07/22/2018 08/04/2018 Inactive doxepin 25 mg capsule RxNorm: 9840539 1 Capsule(s) PO QHS as needed 07/22/2018 08/05/2018 Inactive triamterene 75 mg-hydrochlorothiazide 50 mg tablet RxNorm: 3 91987 TAKE ONE TABLET BY MOUTH DAILY 07/05/2018 10/02/2018 Inactive duloxetine 60 mg capsule,delayed release RxNorm: 323007 TAKE ONE CAPSULE BY MOUTH DAILY 07/05/2018 09/02/2018 Inactive Klor-Con 8 mEq tablet,extended release RxNorm: 155120 T FARRUKH ONE TABLET BY MOUTH TWICE A DAY 07/05/2018 10/02/2018 Inactive Lipitor 10 mg tablet RxNorm: 289229 TAKE ONE TABLET BY MOUTH AT BEDTIME 07/05/2018 09/02/2018 Inactive allopurinol 300 mg tablet RxNorm: 271105 TAKE ONE TABLET BY LOPEZ TH DAILY 07/05/2018 10/02/2018 Inactive clonidine HCl 0.1 mg tablet RxNorm: 650771 TAKE ONE TAB LET BY MOUTH FOUR TIMES A DAY 07/05/2018 10/02/2018 Inactive hydrocodone 10 mg-acetaminophen 325 mg tablet RxNorm: 587113 1-2 Tablet(s) QID as needed for pain MUST LAST 30 DAYS 06/28/2018 07/27/2018 Inactive (Response to an electronic controlled substance refill request - RxReferenceNumber: [id number]) MediHoney (calcium alginate-honey) 4" X 5" bandage RxNorm: 1 Application TOP QD 06/17/2018 06/26/2018 Inactive honey-hydrocolloid dressing 4" X 5" RxNorm: 1 Application TOP QD 06/17/2018 07/16/2018 Inactive furosemide 40 mg tablet RxNorm: 923932 TAKE ONE TABLET BY MOUTH EVERY MORNING NEEDED FOR EDEMA . TAKE WITH POTASSIUM 06/10/2018 07/09/2018 Inactive This is a refill request. hydrocodone 10 mg-acetaminophen 325 mg tablet RxNorm: 931019 1-2 Tablet(s) QID as needed for pain MUST LAST 30 DAYS 05/30/2018 06/27/2018 Inactive (Response to an electronic controlled substance refill request - RxReferenceNumber: [id number]) acyclovir 800 mg tablet RxNorm: 400005 1 Tablet(s) PO 5x day 201705/22/2018 Inactive Premarin 1.25 mg tablet RxNorm: 956091 1-2 Tablet(s) PO QD 05/15/20 18 07/13/2018 Inactive cyclobenzaprine 10 mg tablet RxNorm: 315860 1 Tablet(s) PO TID as needed for muscle spasm 05/09/2018 05/08/2018 Inactive Medrol (Dustin) 4 mg tablets in a dose pack RxNorm: 662794 Tablet(s) PO As Directed 05/02/2018 06/16/2018 Inactive hydrocodone 10 mg-acetaminophen 325 mg tablet RxNorm: 786204 1-2 Tablet(s) QID as needed for pain MUST LAST 30 DAYS 04/30/2018 05/29/2018 Inactive (Response to an electronic controlled substance refill request - RxReferenceNumber: [id number]) duloxetine 60 mg capsule,delayed release RxNorm: 982250 TAKE ONE CAPSULE BY MOUTH DAILY 04/16/2018 05/15/2018 Inactive Celebrex 200 mg capsule RxNorm: 717154 TAKE ONE CAPSULE BY MOUT H TWICE A DAY 04/16/2018 06/14/2018 Inactive Singulair 10 mg tablet RxNorm: 489806 TAKE ONE TABLET BY MOUTH JOSÉ Y 04/16/2018 11/19/2018 Inactive Lipitor 10 mg tablet RxNorm: 415226 TAKE ONE TABLET BY MOUTH AT BEDTIME 04/16/2018 05/15/2018 Inactive hydrocodone 10 mg-acetaminophen 325 mg tablet RxNorm: 117020 1-2 Tablet(s) QID as needed for pain MUST LAST 30 DAYS 03/29/2018 04/27/2018 Inactive (Response to an electronic controlled substance refill request - RxReferenceNumber: [id number]) cyclobenzaprine 10 mg tablet RxNorm: 291047 1 Tablet(s) PO TID as needed for muscle spasm 03/18/2018 05/09/2018 Inactive omeprazole 40 mg capsule,delayed release RxNorm: 896539 1 Capsu le(s) PO QD 02/26/2018 08/24/2018 Inactive hydrocodone 10 mg-acetaminophen 325 mg tablet RxNorm: 977440 1-2 Tablet(s) QID as needed for pain MUST LAST 30 DAYS 02/26/2018 03/27/2018 Inactive (Response to an electronic controlled substance refill request - RxReferenceNumber: [id number]) metoprolol tartrate 100 mg tablet RxNorm: 350080 1 Tablet(s) PO BID 02/18/2018 08/05/2018 Inactive Lyrica 75 mg capsule RxNorm: 079513 1 Capsule(s) PO QHS 01/30/2018 Inactive phentermine 37.5 mg tablet RxNorm: 806552 1 Tablet(s) PO QAM 201706/16/2018 Inactive hydrocodone 10 mg-acetaminophen 325 mg tablet RxNorm: 005705 1-2 Tablet(s) QID as needed for pain MUST LAST 30 DAYS 01/29/2018 02/25/2018 Inactive (Response to an electronic controlled substance refill request - RxReferenceNumber: [id number]) Klor-Con 8 mEq tablet,extended release RxNorm: 345241 1 Tablet( s) PO BID 01/14/2018 07/04/2018 Inactive allopurinol 300 mg tablet RxNorm: 467845 1 Tablet(s) PO QD 01/15/2007/04/2018 Inactive Lipitor 10 mg tablet RxNorm: 600023 1 Tablet(s) PO QHS 01/14/201812/2017 Inactive triamterene 75 mg-hydrochlorothiazide 50 mg tablet RxNorm: 3 93291 1 Tablet(s) PO QD 01/14/2018 07/04/2018 Inactive hydrocodone 10 mg-acetaminophen 325 mg tablet RxNorm: 189527 1-2 Tablet(s) QID as needed for pain MUST LAST 30 DAYS 12/27/2017 01/25/2018 Inactive (Response to an electronic controlled substance refill request - RxReferenceNumber: [id number]) Onglyza 5 mg tablet RxNorm: 135149 1 Tablet(s) PO QD 12/18/201701/29 Inactive metformin 500 mg tablet RxNorm: 324674 1 Tablet(s) PO BID 12/11/2017 12/10/2017 Inactive metformin 500 mg tablet RxNorm: 951859 1 Tablet(s) PO BID 12/11/2017 12/17/2017 Inactive furosemide 40 mg tablet RxNorm: 853985 1 Tablet(s) PO Q AM prn edema--take with potassium 12/11/2017 06/08/2018 Inactive cyclobenzaprine 10 mg tablet RxNorm: 431472 1 Tablet(s) PO TID as needed for muscle spasm 12/11/2017 03/18/2018 Inactive hydrocodone 10 mg-acetaminophen 325 mg tablet RxNorm: 390766 1-2 Tablet(s) QID as needed for pain MUST LAST 30 DAYS 10/23/2017 11/21/2017 Inactive (Response to an electronic controlled substance refill request - RxReferenceNumber: [id number]) Lipitor 10 mg tablet RxNorm: 265112 1 Tablet(s) PO QHS 10/16/201703/2018 Inactive cyclobenzaprine 10 mg tablet RxNorm: 112493 1 Tablet(s) PO TID as needed for muscle spasm 10/09/2017 12/10/2017 Inactive hydroxyzine HCl 25 mg tablet RxNorm: 788022 1 Tablet(s) PO BID as needed for anxiety 09/20/2017 01/29/2018 Inactive Effexor XR 75 mg capsule,extended release RxNorm: 048386 1 Caps ule(s) PO QD 09/20/2017 01/29/2018 Inactive metoprolol tartrate 100 mg tablet RxNorm: 186816 1 Tablet(s) PO BID 08/20/2017 02/18/2018 Inactive baclofen 20 mg tablet RxNorm: 239271 1 Tablet(s) PO TID as needed for muscle spasm 08/20/2017 01/21/2019 Inactive clonidine HCl 0.1 mg tablet RxNorm: 347173 1 Tablet(s) PO QID 08/2005/16/2018 Inactive Seroquel 25 mg tablet RxNorm: 472654 1 Tablet(s) PO QHS 08/17/2017 Inactive Seroquel 25 mg tablet RxNorm: 417953 1 Tablet(s) PO QHS 08/17/2017 Inactive Diflucan 100 mg tablet RxNorm: 643939 TAKE ONE TABLET BY MOUTH JOSÉ Y 07/25/2017 08/07/2017 Inactive hydrocodone 10 mg-acetaminophen 325 mg tablet RxNorm: 515909 1-2 Tablet(s) QID as needed for pain MUST LAST 30 DAYS 07/19/2017 08/17/2017 Inactive (Response to an electronic controlled substance refill request - RxReferenceNumber: [id number]) clindamycin 300 mg capsule RxNorm: 604580 1 Capsule(s) PO TID 07/1907/28/2017 Inactive clotrimazole-betamethasone 1 %-0.05 % topical cream RxNorm: 586548 Application TOP BID to elbow rash 07/19/2017 06/16/2018 Inactive Singulair 10 mg tablet RxNorm: 568039 Tablet(s) TAKE ONE TABLET BY MOUTH DAILY 07/18/2017 04/13/2018 Inactive triamterene 75 mg-hydrochlorothiazide 50 mg tablet RxNorm: 3 19340 1 Tablet(s) PO QD 07/18/2017 01/14/2018 Inactive Celebrex 200 mg capsule RxNorm: 000485 Capsule(s) TAKE ONE CAPSULE BY MOUTH TWICE A DAY 07/18/2017 10/15/2017 Inactive hydrocodone 10 mg-acetaminophen 325 mg tablet RxNorm: 909473 1-2 Tablet(s) QID as needed for pain MUST LAST 30 DAYS 06/19/2017 07/18/2017 Inactive (Response to an electronic controlled substance refill request - RxReferenceNumber: [id number]) hydrocodone 10 mg-acetaminophen 325 mg tablet RxNorm: 489264 1-2 Tablet(s) QID as needed for pain MUST LAST 30 DAYS 06/19/2017 06/18/2017 Inactive (Response to an electronic controlled substance refill request [id number]) baclofen 20 mg tablet RxNorm: 274691 1 Tablet(s) PO TID as needed for muscle spasm 06/18/2017 08/20/2017 Inactive Medrol (Dustin) 4 mg tablets in a dose pack RxNorm: 842394 Tablet(s) PO As Directed 06/05/2017 07/18/2017 Inactive omeprazole 40 mg capsule,delayed release RxNorm: 955035 1 Capsu le(s) PO QD 04/20/2017 10/16/2017 Inactive Premarin 1.25 mg tablet RxNorm: 986173 1-2 Tablet(s) PO QD 04/11/20 17 05/15/2018 Inactive duloxetine 60 mg capsule,delayed release RxNorm: 752800 1 Capsu le(s) PO QD 04/11/2017 09/19/2017 Inactive furosemide 40 mg tablet RxNorm: 796601 1 Tablet(s) PO Q AM prn edema--take with potassium 04/11/2017 12/11/2017 Inactive Klor-Con 8 mEq tablet,extended release RxNorm: 791153 1 Tablet( s) PO BID 04/11/2017 01/14/2018 Inactive Lipitor 10 mg tablet RxNorm: 247237 1 Tablet(s) PO QHS 04/11/201702/2018 Inactive amlodipine 5 mg-benazepril 20 mg capsule RxNorm: 248373 1 Capsu le(s) PO QD 04/11/2017 01/29/2018 Inactive allopurinol 300 mg tablet RxNorm: 258840 1 Tablet(s) PO QD 04/11/20 17 01/14/2018 Inactive clonidine HCl 0.1 mg tablet RxNorm: 674690 1 Tablet(s) PO QID 04/0508/19/2017 Inactive baclofen 20 mg tablet RxNorm: 738688 1 Tablet(s) PO TID as needed for muscle spasm 04/02/2017 06/18/2017 Inactive Premarin 1.25 mg tablet RxNorm: 504514 1-2 Tablet(s) PO QD 03/20/2026 0404/10/2017 Inactive hydrocodone 10 mg-acetaminophen 325 mg tablet RxNorm: 651403 1-2 Tablet(s) QID as needed for pain MUST LAST 30 DAYS 03/14/2017 01/21/2019 Inactive (Response to an electronic controlled substance refill request - RxReferenceNumber: [id number]) metoprolol tartrate 100 mg tablet RxNorm: 607221 1 Tablet(s) PO BID 02/12/2017 08/20/2017 Inactive hydrocodone 10 mg-acetaminophen 325 mg tablet RxNorm: 201083 1-2 Tablet(s) QID as needed for pain MUST LAST 30 DAYS 02/08/2017 03/09/2017 Inactive (Response to an electronic controlled substance refill request - RxReferenceNumber: [id number]) metoprolol tartrate 100 mg tablet RxNorm: 269885 TAKE O NE TABLET BY MOUTH TWICE A DAY 01/11/2017 02/12/2017 Inactive metoprolol tartrate 100 mg tablet RxNorm: 637613 1 Tablet(s) PO BID 12/18/2016 12/17/2016 Inactive metoprolol tartrate 100 mg tablet RxNorm: 817463 1 Tablet(s) PO BID 12/18/2016 01/10/2017 Inactive furosemide 40 mg tablet RxNorm: 916831 1 Tablet(s) PO Q AM prn edema--take with potassium 12/13/2016 02/10/2017 Inactive amitriptyline 100 mg tablet RxNorm: 495962 1 Tablet(s) PO QHS 11/2812/12/2016 Inactive baclofen 20 mg tablet RxNorm: 925236 1 Tablet(s) PO TID as needed for muscle spasm 11/14/2016 04/01/2017 Inactive triamterene 75 mg-hydrochlorothiazide 50 mg tablet RxNorm: 3 35652 1 Tablet(s) PO QD 11/14/2016 11/13/2016 Inactive metolazone 2.5 mg tablet RxNorm: 441493 TAKE ONE TABLET BY MOUTH DAILY NEEDED FOR EDEMA 11/14/2016 12/12/2016 Inactive triamterene 75 mg-hydrochlorothiazide 50 mg tablet RxNorm: 3 98892 1 Tablet(s) PO QD 11/14/2016 07/18/2017 Inactive amitriptyline 50 mg tablet RxNorm: 353728 TAKE ONE TABL ET BY MOUTH AT BEDTIME NEEDED FOR SLEEP 11/14/2016 11/27/2016 Inactive Cymbalta 60 mg capsule,delayed release RxNorm: 575997 1 Capsule (s) PO QHS 11/14/2016 12/12/2016 Inactive clonidine HCl 0.1 mg tablet RxNorm: 832843 1 Tablet(s) PO QID 11/1304/04/2017 Inactive amitriptyline 50 mg tablet RxNorm: 169334 1 Tablet(s) P O QHS as needed for sleep 11/01/2016 11/27/2016 Inactive duloxetine 60 mg capsule,delayed release RxNorm: 691438 TAKE ONE CAPSULE BY MOUTH DAILY 10/20/2016 01/17/2017 Inactive allopurinol 300 mg tablet RxNorm: 750279 TAKE ONE TABLET BY LOPEZ TH DAILY 10/20/2016 01/16/2017 Inactive Lyrica 75 mg capsule RxNorm: 211556 TAKE ONE CAPSULE BY MOUTH EVERY NIGHT AT BEDTIME 10/20/2016 12/10/2016 Inactive Klor-Con 8 mEq tablet,extended release RxNorm: 460639 T FARRUKH ONE TABLET BY MOUTH TWICE A DAY 10/20/2016 01/17/2017 Inactive Celebrex 200 mg capsule RxNorm: 265741 TAKE ONE CAPSULE BY MOUT H TWICE A DAY 10/20/2016 07/18/2017 Inactive Bystolic 10 mg tablet RxNorm: 112905 TAKE ONE TABLET BY MOUTH EVERY NIGHT AT BEDTIME 10/20/2016 12/17/2016 Inactive amlodipine 5 mg-benazepril 20 mg capsule RxNorm: 881058 TAKE ONE CAPSULE BY MOUTH EVERY NIGHT AT BEDTIME -- TO REPLACE AMLODOPINE 10/20/20162016 Inactive Lipitor 10 mg tablet RxNorm: 345970 TAKE ONE TABLET BY MOUTH EVERY NIGHT AT BEDTIME 10/20/2016 01/17/2017 Inactive alprazolam 0.5 mg tablet RxNorm: 342085 3 Tablet(s) PO QHS as needed for sleep/anxiety 09/20/2016 10/31/2016 Inactive Tamiflu 75 mg capsule RxNorm: 920398 1 Capsule(s) PO QD 09/19/2016 Inactive Lyrica 75 mg capsule RxNorm: 661486 1 Capsule(s) PO QHS 09/19/2016 Inactive prednisone 20 mg tablet RxNorm: 092839 1 Tablet(s) PO QD 08/10/2016 1 10/17/2015 Inactive doxycycline hyclate 100 mg capsule RxNorm: 6891513 1 Capsule(s) PO BID 08/10/2016 08/19/2016 Inactive Medrol (Dustin) 4 mg tablets in a dose pack RxNorm: 455921 Tablet(s) PO As Directed 07/31/2016 08/22/2016 Inactive Singulair 10 mg tablet RxNorm: 399351 TAKE ONE TABLET BY MOUTH JOSÉ Y 07/27/2016 07/18/2017 Inactive hydrocodone 10 mg-acetaminophen 325 mg tablet RxNorm: 786140 1-2 Tablet(s) QID as needed for pain MUST LAST 30 DAYS 07/26/2016 08/24/2016 Inactive (Response to an electronic controlled substance refill request - RxReferenceNumber: [id number]) alprazolam 0.5 mg tablet RxNorm: 206112 3 Tablet(s) PO QHS as needed for anxiety or sleep 07/26/2016 09/20/2016 Inactive clindamycin 300 mg capsule RxNorm: 619657 1 Capsule(s) PO TID 07/2007/29/2016 Inactive Diflucan 100 mg tablet RxNorm: 240708 1 Tablet(s) PO QD 07/20/2016 Inactive Levaquin 500 mg tablet RxNorm: 144082 1 Tablet(s) PO QD 07/17/2016 Inactive Levaquin 500 mg tablet RxNorm: 478057 1 Tablet(s) PO QD 07/10/2016 Inactive Levaquin 500 mg tablet RxNorm: 184888 1 Tablet(s) PO QD 07/10/2016 Inactive mupirocin 2 % topical ointment RxNorm: 124799 TOP Apply topically to affected areas twice daily 07/06/2016 09/18/2016 Inactive Singulair 10 mg tablet RxNorm: 431653 TAKE ONE TABLET BY MOUTH JOSÉ Y 06/21/2016 01/21/2019 Inactive alprazolam 0.5 mg tablet RxNorm: 709832 TAKE THREE TABL ETS BY MOUTH AT BEDTIME NEEDED FOR SLEEP OR STRESS 05/22/2016 06/20/2016 Inactive triamterene 75 mg-hydrochlorothiazide 50 mg tablet RxNorm: 3 45106 1 Tablet(s) PO QD 04/26/2016 10/21/2016 Inactive Premarin 1.25 mg tablet RxNorm: 540968 1-2 Tablet(s) PO QD 04/26/20 16 03/20/2017 Inactive Klor-Con 8 mEq tablet,extended release RxNorm: 511648 1 Tablet( s) PO BID 04/26/2016 10/19/2016 Inactive Celebrex 200 mg capsule RxNorm: 728438 1 Capsule(s) PO BID TAKE ONE CAPSULE BY MOUTH EVERY DAY 04/26/2016 10/19/2016 Inactive Lipitor 10 mg tablet RxNorm: 754564 1 Tablet(s) PO QHS 04/26/201605/2017 Inactive allopurinol 300 mg tablet RxNorm: 692715 1 Tablet(s) PO QD TAKE ONE TABLET BY MOUTH EVERY DAY 04/26/2016 10/19/2016 Inactive amlodipine 5 mg-benazepril 20 mg capsule RxNorm: 568942 1 Capsule(s) PO QHS replaces amlodopine 04/26/2016 10/19/2016 Inactive duloxetine 60 mg capsule,delayed release RxNorm: 394678 1 Capsu le(s) PO QD 04/26/2016 10/19/2016 Inactive Bystolic 10 mg tablet RxNorm: 202780 1 Tablet(s) PO QHS 04/26/2016 Inactive Singulair 10 mg tablet RxNorm: 370442 1 Tablet(s) PO QD TAKE ONE TABLET BY MOUTH DAILY 04/26/2016 06/20/2016 Inactive clonidine HCl 0.1 mg tablet RxNorm: 550858 1 Tablet(s) PO QID 04/2610/22/2016 Inactive hydrocodone 10 mg-acetaminophen 325 mg tablet RxNorm: 945650 1-2 Tablet(s) QID as needed for pain TAKE ONE TO TWO TABLETS BY MOUTH FOUR TIMES A DAY . MUST LAST 30 DAYS 03/31/2016 04/29/2016 Inactive (Response to an electronic controlled substance refill request - RxReferenceNumber: [id number]) Klor-Con 8 mEq tablet,extended release RxNorm: 059412 T FARRUKH ONE TABLET BY MOUTH TWICE A DAY 03/24/2016 09/29/2019 Inactive prednisone 20 mg tablet RxNorm: 891392 1 Tablet(s) PO QD 03/09/2016 0 03/08/2016 Inactive prednisone 20 mg tablet RxNorm: 736775 1 Tablet(s) PO QD 03/09/2016 0 03/13/2016 Inactive alprazolam 0.5 mg tablet RxNorm: 704686 3 Tablet(s) PO QHS as needed for sleep/stress 03/02/2016 01/21/2019 Inactive mupirocin 2 % topical ointment RxNorm: 523922 TOP twice daily to affected areas of face and neck 02/21/2016 04/25/2016 Inactive clonidine HCl 0.1 mg tablet RxNorm: 569399 TAKE ONE TAB LET BY MOUTH FOUR TIMES A DAY 02/15/2016 09/29/2019 Inactive clonidine HCl 0.1 mg tablet RxNorm: 208151 1 Tablet(s) PO QID 02/1404/25/2016 Inactive Premarin 1.25 mg tablet RxNorm: 281316 1-2 Tablet(s) PO QD 02/15/20 16 03/15/2016 Inactive Klor-Con 8 mEq tablet,extended release RxNorm: 643117 T FARRUKH ONE TABLET BY MOUTH TWICE A DAY 02/15/2016 03/15/2016 Inactive potassium chloride ER 20 mEq tablet,extended release(part/cr yst) RxNorm: 687740 2 Tablet(s) PO BID 02/15/2016 03/15/2016 Inactive Macrobid 100 mg capsule RxNorm: 324883 1 Capsule(s) PO BID 01/24/20 16 01/30/2016 Inactive prednisone 20 mg tablet RxNorm: 558096 Take 3tabs PO QD x 2 days, then 2 tabs PO QD x 2 days, then 1 tab PO QD x 2 days, then 1/2 tab PO QDy x 2 days 12/23/2015 04/25/2016 Inactive Klor-Con 8 mEq tablet,extended release RxNorm: 457824 T FARRUKH ONE TABLET BY MOUTH TWICE A DAY 12/20/2015 02/14/2016 Inactive alprazolam 1 mg tablet RxNorm: 081414 1 1/2 Tablet(s) PO QHS 201501/23/2016 Inactive nystatin 100,000 unit/gram topical cream RxNorm: 202746 APPLY TO AFFECTED AREA(S) TWO TIMES A DAY 11/30/2015 12/14/2015 Inactive Singulair 10 mg tablet RxNorm: 730211 TAKE ONE TABLET BY MOUTH JOSÉ Y 11/18/2015 04/25/2016 Inactive allopurinol 300 mg tablet RxNorm: 450597 1 Tablet(s) PO QD TAKE ONE TABLET BY MOUTH EVERY DAY 10/26/2015 04/22/2016 Inactive Singulair 10 mg tablet RxNorm: 640334 TAKE ONE TABLET BY MOUTH JOSÉ Y 10/26/2015 11/17/2015 Inactive duloxetine 60 mg capsule,delayed release RxNorm: 194011 1 Capsu le(s) PO QD 10/26/2015 04/22/2016 Inactive triamterene 75 mg-hydrochlorothiazide 50 mg tablet RxNorm: 3 93481 1 Tablet(s) PO QD 10/26/2015 11/14/2016 Inactive potassium chloride ER 20 mEq tablet,extended release(part/cr yst) RxNorm: 028075 2 Tablet(s) PO BID 10/26/2015 02/14/2016 Inactive Lipitor 10 mg tablet RxNorm: 249838 1 Tablet(s) PO QHS 10/26/2015 Inactive amlodipine 5 mg-benazepril 20 mg capsule RxNorm: 906419 1 Capsule(s) PO QHS replaces amlodopine 10/26/2015 04/22/2016 Inactive Bystolic 10 mg tablet RxNorm: 789364 1 Tablet(s) PO QHS 10/26/2015 Inactive amlodipine 5 mg-benazepril 20 mg capsule RxNorm: 723882 1 Capsule(s) PO QHS replaces amlodopine 10/06/2015 10/25/2015 Inactive amlodipine 5 mg tablet RxNorm: 399951 1 Tablet(s) PO QHS 09/30/2015 0 04/25/2016 Inactive metolazone 2.5 mg tablet RxNorm: 307308 TAKE ONE TABLET BY MOUTH DAILY NEEDED FOR EDEMA 09/30/2015 01/21/2019 Inactive duloxetine 60 mg capsule,delayed release RxNorm: 597847 1 Capsu le(s) PO QD 09/30/2015 10/25/2015 Inactive cephalexin 500 mg capsule RxNorm: 622389 1 Capsule(s) PO BID 201509/23/2015 Inactive mupirocin 2 % topical ointment RxNorm: 234857 TOP twice daily to affected areas of face and neck 09/14/2015 02/20/2016 Inactive baclofen 20 mg tablet RxNorm: 828210 1 Tablet(s) PO TID as needed for muscle spasm 09/01/2015 11/14/2016 Inactive clonidine HCl 0.1 mg tablet RxNorm: 646300 1 Tablet(s) PO QID 09/0102/14/2016 Inactive alprazolam 1 mg tablet RxNorm: 914204 1 1/2 Tablet(s) PO QHS 201409/09/2015 Inactive baclofen 20 mg tablet RxNorm: 508777 1 Tablet(s) PO TID as needed for muscle spasm 07/23/2015 09/01/2015 Inactive omeprazole 40 mg capsule,delayed release RxNorm: 739532 1 Capsu le(s) PO QD 07/23/2015 04/25/2016 Inactive alprazolam 1 mg tablet RxNorm: 351609 1 1/2 Tablet(s) PO QHS 201408/10/2015 Inactive Bystolic 10 mg tablet RxNorm: 922807 1 Tablet(s) PO BID 06/24/2015 Inactive allopurinol 300 mg tablet RxNorm: 650063 1 Tablet(s) PO QD TAKE ONE TABLET BY MOUTH EVERY DAY 06/23/2015 10/20/2015 Inactive alprazolam 1 mg tablet RxNorm: 210403 1 1/2 Tablet(s) PO QHS 201407/06/2015 Inactive clonidine HCl 0.1 mg tablet RxNorm: 677482 1 Tablet(s) PO QID 06/0209/01/2015 Inactive clonidine HCl 0.1 mg tablet RxNorm: 516549 1 Tablet(s) PO QID 06/0206/01/2015 Inactive Cymbalta 60 mg capsule,delayed release RxNorm: 829230 1 Capsule (s) PO QHS 06/02/2015 08/30/2015 Inactive Cymbalta 60 mg capsule,delayed release RxNorm: 687088 1 Capsule (s) PO QHS 06/02/2015 06/01/2015 Inactive clonidine HCl 0.1 mg tablet RxNorm: 318540 1 Tablet(s) PO TID 05/3106/01/2015 Inactive replaces 0.2mg dose metolazone 2.5 mg tablet RxNorm: 325131 TAKE ONE TABLET BY MOUTH DAILY NEEDED FOR EDEMA 05/21/2015 06/19/2015 Inactive Singulair 10 mg tablet RxNorm: 706020 TAKE ONE TABLET BY MOUTH JOSÉ Y 05/21/2015 10/17/2015 Inactive Cymbalta 30 mg capsule,delayed release RxNorm: 944069 1 Capsule (s) PO QHS 05/20/2015 11/14/2016 Inactive betamethasone valerate 0.1 % topical cream RxNorm: 164508 Appli cation TOP BID 05/10/2015 04/25/2016 Inactive Bactroban 2 % topical ointment RxNorm: 301422 Application TOP BID 0 05/10/2015 06/20/2015 Inactive baclofen 20 mg tablet RxNorm: 567851 1 Tablet(s) PO TID as needed 0 04/26/2015 07/23/2015 Inactive Lipitor 10 mg tablet RxNorm: 371858 1 Tablet(s) PO QHS 04/26/201508/2016 Inactive clonidine HCl 0.1 mg tablet RxNorm: 449914 1 Tablet(s) PO TID 04/2605/30/2015 Inactive replaces 0.2mg dose Klor-Con 8 mEq tablet,extended release RxNorm: 533510 1 Tablet( s) PO BID 04/26/2015 04/25/2016 Inactive metolazone 2.5 mg tablet RxNorm: 224454 1 Tablet(s) PO QD as ne eded for edema 04/26/2015 04/25/2015 Inactive triamterene 75 mg-hydrochlorothiazide 50 mg tablet RxNorm: 3 45035 1 Tablet(s) PO QD 04/26/2015 10/22/2015 Inactive Premarin 1.25 mg tablet RxNorm: 173347 1-2 Tablet(s) PO QD 04/26/20 15 10/22/2015 Inactive Bystolic 10 mg tablet RxNorm: 628996 1 Tablet(s) PO QAM TAKE ONE TABLET BY MOUTH EVERY MORNING 04/23/2015 06/23/2015 Inactive clonidine HCl 0.1 mg tablet RxNorm: 703241 1 Tablet(s) PO TID 03/2304/25/2015 Inactive replaces 0.2mg dose nystatin 100,000 unit/gram topical cream RxNorm: 333907 Applica tion TOP BID 03/23/2015 06/20/2015 Inactive baclofen 20 mg tablet RxNorm: 022647 1 Tablet(s) PO TID as needed 0 03/23/2015 04/25/2015 Inactive Premarin 1.25 mg tablet RxNorm: 400331 1-2 Tablet(s) PO QD 03/23/20 15 04/25/2015 Inactive Klor-Con 8 mEq tablet,extended release RxNorm: 578012 1 Tablet( s) PO BID 03/23/2015 04/25/2015 Inactive cefdinir 300 mg capsule RxNorm: 633676 2 Capsule(s) PO QD 03/16/2015 03/25/2015 Inactive baclofen 20 mg tablet RxNorm: 122765 1 Tablet(s) PO TID as needed 0 03/02/2015 03/22/2015 Inactive allopurinol 300 mg tablet RxNorm: 890643 1 Tablet(s) PO QD TAKE ONE TABLET BY MOUTH EVERY DAY 02/22/2015 05/22/2015 Inactive Klor-Con M20 mEq tablet,extended release RxNorm: 464769 2 Tablet(s) PO BID to use with lasix 02/22/2015 06/20/2015 Inactive clonidine HCl 0.1 mg tablet RxNorm: 814462 1 Tablet(s) PO TID 02/1903/22/2015 Inactive replaces 0.2mg dose Lipitor 10 mg tablet RxNorm: 122160 1 Tablet(s) PO QHS 01/20/201506/2015 Inactive Lipitor 10 mg tablet RxNorm: 255319 1 Tablet(s) PO QHS 01/20/2015 Inactive Singulair 10 mg tablet RxNorm: 086981 1 Tablet(s) PO QD TAKE ONE TABLET BY MOUTH EVERY DAY 11/20/2014 05/18/2015 Inactive Lipitor 10 mg tablet RxNorm: 275083 1 Tablet(s) PO QHS 11/20/201408/2015 Inactive allopurinol 300 mg tablet RxNorm: 928571 1 Tablet(s) PO QD TAKE ONE TABLET BY MOUTH EVERY DAY 11/20/2014 02/16/2015 Inactive Bystolic 10 mg tablet RxNorm: 109818 1 Tablet(s) PO QAM TAKE ONE TABLET BY MOUTH EVERY MORNING 11/20/2014 04/22/2015 Inactive Klor-Con 8 mEq tablet,extended release RxNorm: 959550 1 Tablet( s) PO BID 11/20/2014 02/17/2015 Inactive baclofen 20 mg tablet RxNorm: 611713 1 Tablet(s) PO TID as needed 0 11/20/2014 01/21/2019 Inactive baclofen 20 mg tablet RxNorm: 291445 1 Tablet(s) PO TID as needed 0 10/27/2014 11/19/2014 Inactive baclofen 20 mg tablet RxNorm: 925552 1 Tablet(s) PO TID as needed 0 10/26/2014 03/01/2015 Inactive allopurinol 300 mg tablet RxNorm: 825391 1 Tablet(s) PO QD TAKE ONE TABLET BY MOUTH EVERY DAY 10/26/2014 11/20/2014 Inactive Bystolic 10 mg tablet RxNorm: 795319 1 Tablet(s) PO QAM TAKE ONE TABLET BY MOUTH EVERY MORNING 10/26/2014 11/20/2014 Inactive clonidine HCl 0.1 mg tablet RxNorm: 624553 1 Tablet(s) PO TID 09/2805/27/2019 Inactive replaces 0.2mg dose clonidine HCl 0.1 mg tablet RxNorm: 711048 1 Tablet(s) PO TID 09/2802/18/2015 Inactive replaces 0.2mg dose baclofen 20 mg tablet RxNorm: 064102 1 Tablet(s) PO TID as needed 1 11/01/2013 08/30/2014 Inactive Lipitor 10 mg tablet RxNorm: 481986 1 Tablet(s) PO QHS 08/31/2014 Inactive baclofen 20 mg tablet RxNorm: 116954 1 Tablet(s) PO TID as needed 1 11/01/2013 10/26/2014 Inactive triamterene 75 mg-hydrochlorothiazide 50 mg tablet RxNorm: 3 21495 1 Tablet(s) PO QD 08/31/2014 02/26/2015 Inactive Klor-Con 8 mEq tablet,extended release RxNorm: 380562 1 Tablet( s) PO BID 08/31/2014 11/20/2014 Inactive baclofen 20 mg tablet RxNorm: 220743 1 Tablet(s) PO TID as needed 1 09/30/2013 10/25/2014 Inactive baclofen 20 mg tablet RxNorm: 071653 1 Tablet(s) PO TID as needed 1 09/30/2013 08/31/2014 Inactive omeprazole 40 mg capsule,delayed release RxNorm: 292398 1 Capsu le(s) PO QD 07/21/2014 07/23/2015 Inactive Flonase 50 mcg/actuation nasal spray,suspension RxNorm: 8963 23 1 [place] NASAL BID 07/15/2014 04/09/2017 Inactive hydrocodone 10 mg-acetaminophen 325 mg tablet RxNorm: 085315 1-2 Tablet(s) QID as needed for pain TAKE ONE TO TWO TABLETS BY MOUTH FOUR TIMES A DAY . MUST LAST 30 DAYS 06/30/2014 07/27/2014 Inactive (Response to an electronic controlled substance refill request - RxReferenceNumber: [id number]) baclofen 20 mg tablet RxNorm: 113763 1 Tablet(s) PO TID as needed 1 07/31/2014 Inactive Singulair 10 mg tablet RxNorm: 256186 1 Tablet(s) PO QD TAKE ONE TABLET BY MOUTH EVERY DAY 05/25/2014 11/20/2014 Inactive Bystolic 10 mg tablet RxNorm: 865910 TAKE ONE TABLET BY MOUTH E VERY MORNING 05/25/2014 09/21/2014 Inactive allopurinol 300 mg tablet RxNorm: 381931 1 Tablet(s) PO QD TAKE ONE TABLET BY MOUTH EVERY DAY 05/25/2014 10/21/2014 Inactive baclofen 20 mg tablet RxNorm: 110773 1 Tablet(s) PO TID as needed 0 05/25/2014 06/29/2014 Inactive allopurinol 300 mg tablet RxNorm: 100054 TAKE ONE TABLET BY LOPEZ TH EVERY DAY 05/25/2014 09/21/2014 Inactive Singulair 10 mg tablet RxNorm: 164886 1 Tablet(s) PO QD TAKE ONE TABLET BY MOUTH EVERY DAY 05/25/2014 05/24/2014 Inactive Bystolic 10 mg tablet RxNorm: 906196 1 Tablet(s) PO QAM TAKE ONE TABLET BY MOUTH EVERY MORNING 05/25/2014 10/21/2014 Inactive metolazone 2.5 mg tablet RxNorm: 064470 1 Tablet(s) PO QD as ne eded for edema 05/18/2014 04/25/2015 Inactive Lasix 40 mg tablet RxNorm: 230725 1 Tablet(s) PO QAM s ashley take potassium supplementation with this medication 05/14/2014 05/17/2014 Inactive hydrocodone 10 mg-acetaminophen 325 mg tablet RxNorm: 160068 1-2 Tablet(s) QID as needed for pain TAKE ONE TO TWO TABLETS BY MOUTH FOUR TIMES A DAY . MUST LAST 30 DAYS 05/07/2014 06/05/2014 Inactive (Response to an electronic controlled substance refill request - RxReferenceNumber: [id number]) alprazolam 0.5 mg tablet RxNorm: 811642 TAKE ONE TABLET BY MOUTH TWICE A DAY , MUST LAST 30 DAYS 05/07/2014 05/22/2016 Inactive (Response to a n electronic controlled substance refill request - RxReferenceNumber: [id number]) diclofenac sodium 75 mg tablet,delayed release RxNorm: 04733 6 1 Tablet(s) PO BID for pain 04/24/2014 07/20/2014 Inactive Celebrex 200 mg capsule RxNorm: 099091 TAKE ONE CAPSULE BY MOUT H EVERY DAY 04/24/2014 07/20/2014 Inactive alprazolam 0.5 mg tablet RxNorm: 387494 TAKE ONE TABLET BY MOUTH TWICE A DAY , MUST LAST 30 DAYS 03/24/2014 04/22/2014 Inactive (Response to a n electronic controlled substance refill request - RxReferenceNumber: [id number]) diclofenac sodium 75 mg tablet,delayed release RxNorm: 07962 6 1 Tablet(s) PO BID for pain 03/24/2014 04/24/2014 Inactive clonidine HCl 0.1 mg tablet RxNorm: 113243 1 Tablet(s) PO TID 03/2409/28/2014 Inactive replaces 0.2mg dose Klor-Con 8 mEq tablet,extended release RxNorm: 330842 1 Tablet( s) PO BID 02/26/2014 08/31/2014 Inactive diclofenac sodium 75 mg tablet,delayed release RxNorm: 39071 6 1 Tablet(s) PO BID for pain 02/25/2014 03/24/2014 Inactive hydrocodone 10 mg-acetaminophen 325 mg tablet RxNorm: 933226 1-2 Tablet(s) QID as needed for pain TAKE ONE TO TWO TABLETS BY MOUTH FOUR TIMES A DAY . MUST LAST 30 DAYS 02/25/2014 03/26/2014 Inactive (Response to an electronic controlled substance refill request - RxReferenceNumber: [id number]) alprazolam 0.5 mg tablet RxNorm: 895562 Tablet(s) PO BI D as needed for anxiety TAKE ONE TABLET BY MOUTH TWICE A DAY , MUST LAST 30 DAYS 02/25/2014 Inactive (Response to an electronic controlled [place] bstance refill request - RxReferenceNumber: [id number]) [AttnRPh: Saving apply/adjudicate RxGRP:SG20 RxBIN:[id number] RxPCN: ID#:[id number]] alprazolam 0.5 mg tablet RxNorm: 518188 Tablet(s) TAKE ONE TABLET BY MOUTH TWICE A DAY , MUST LAST 30 DAYS 01/27/2014 02/24/2014 Inactive (Respo nse to an electronic controlled substance refill request - RxReferenceNumber: [id number]) [AttnRPh: Saving apply/adjudicate RxGRP:SG20 RxBIN:[id number] RxPCN:HT ID#:[id number]] hydrocodone 10 mg-acetaminophen 325 mg tablet RxNorm: 503475 1-2 Tablet(s) QID as needed for pain TAKE ONE TO TWO TABLETS BY MOUTH FOUR TIMES A DAY . MUST LAST 30 DAYS 01/27/2014 02/24/2014 Inactive (Response to an electronic controlled substance refill request - RxReferenceNumber: [id number]) alprazolam 0.5 mg tablet RxNorm: 427138 TAKE ONE TABLET BY MOUTH TWICE A DAY , MUST LAST 30 DAYS 01/27/2014 01/26/2014 Inactive (Response to a n electronic controlled substance refill request - RxReferenceNumber: [id number]) Premarin 1.25 mg tablet RxNorm: 729856 1-2 Tablet(s) PO QD 01/28/20 14 07/25/2014 Inactive alprazolam 0.5 mg tablet RxNorm: 626537 TAKE ONE TABLET BY MOUTH TWICE A DAY , MUST LAST 30 DAYS 01/27/2014 01/27/2014 Inactive (Response to a n electronic controlled substance refill request - RxReferenceNumber: [id number]) hydrocodone 10 mg-acetaminophen 325 mg tablet RxNorm: 243252 TAKE ONE TO TWO TABLETS BY MOUTH FOUR TIMES A DAY . MUST LAST 30 DAYS 01/27/20142013 Inactive (Response to an electronic controlled [place] bstance refill request - RxReferenceNumber: [id number]) Celebrex 200 mg capsule RxNorm: 619260 1 Capsule(s) PO QD TAKE ONE CAPSULE BY MOUTH EVERY DAY 12/29/2013 04/27/2014 Inactive hydrocodone 10 mg-acetaminophen 325 mg tablet RxNorm: 025443 1-2 Tablet(s) PO QID as needed for severe pain 12/29/2013 01/27/2014 Inactive allopurinol 300 mg tablet RxNorm: 367332 1 Tablet(s) PO QD TAKE ONE TABLET BY MOUTH EVERY DAY 12/29/2013 05/24/2014 Inactive alprazolam 0.5 mg tablet RxNorm: 241594 TAKE ONE TABLET BY MOUTH TWICE A DAY , MUST LAST 30 DAYS 12/29/2013 01/27/2014 Inactive (Response to a n electronic controlled substance refill request - RxReferenceNumber: [id number]) Celebrex 200 mg capsule RxNorm: 024508 1 Capsule(s) PO QD TAKE ONE CAPSULE BY MOUTH EVERY DAY 12/29/2013 12/29/2013 Inactive Bystolic 10 mg tablet RxNorm: 895748 1 Tablet(s) PO QAM TAKE ONE TABLET BY MOUTH EVERY MORNING 12/29/2013 05/24/2014 Inactive Bystolic 10 mg tablet RxNorm: 658144 1 Tablet(s) PO QAM TAKE ONE TABLET BY MOUTH EVERY MORNING 12/29/2013 12/29/2013 Inactive Singulair 10 mg tablet RxNorm: 994803 1 Tablet(s) PO QD TAKE ONE TABLET BY MOUTH EVERY DAY 12/29/2013 05/25/2014 Inactive hydrocodone 10 mg-acetaminophen 325 mg tablet RxNorm: 876750 TAKE ONE TO TWO TABLETS BY MOUTH FOUR TIMES A DAY . MUST LAST 30 DAYS 12/29/20132013 Inactive (Response to an electronic controlled [place] bstance refill request - RxReferenceNumber: [id number]) Trazadone 75mg Tablet RxNorm: 1 Tablet(s) PO QHS as needed 03/23/2014 Inactive Trazadone 75mg Tablet RxNorm: 1 Tablet(s) PO QHS 12/24/20132014 Inactive Soma 350 mg tablet RxNorm: 607164 Tablet(s) PO TAKE ON E TABLET BY MOUTH THREE TIMES A DAY NEEDED FOR MUSCLE SPASMS. THIS MUST LAST 30 DAYS BETWEEN REFILLS. 12/10/2013 12/22/2013 Inactive (Appended: Cont rolled substance eRx refill - RxReferenceNumber: [id number]) diclofenac sodium 75 mg tablet,delayed release RxNorm: 01399 6 1 Tablet(s) PO BID for pain 12/10/2013 02/24/2014 Inactive allopurinol 300 mg tablet RxNorm: 003602 1 Tablet(s) PO QD 11/20/19 14 12/29/2013 Inactive alprazolam 0.5 mg tablet RxNorm: 277534 2 Tablet(s) PO BID 11/13/19 14 12/29/2013 Inactive prn clonidine 0.1 mg tablet RxNorm: 552285 1 Tablet(s) PO TID 11/12/2013 02/09/2014 Inactive replaces 0.2mg dose Klor-Con M20 mEq tablet,extended release RxNorm: 527733 2 Tablet(s) PO BID to use with lasix 11/12/2013 05/10/2014 Inactive Singulair 10 mg tablet RxNorm: 446545 1 Tablet(s) PO QD 11/12/2013 Inactive hydrocodone 10 mg-acetaminophen 325 mg tablet RxNorm: 270248 1-2 Tablet(s) PO QID as needed for severe pain 11/12/2013 12/28/2013 Inactive Bystolic 10 mg tablet RxNorm: 030927 1 Tablet(s) PO QAM 11/12/2013 Inactive Soma 350 mg tablet RxNorm: 125333 Tablet(s) PO TAKE ON E TABLET BY MOUTH THREE TIMES A DAY NEEDED FOR MUSCLE SPASMS. THIS MUST LAST 30 DAYS BETWEEN REFILLS. 10/13/2013 12/10/2013 Inactive (Appended: Cont rolled substance eRx refill - RxReferenceNumber: [id number]) hydrocodone 10 mg-acetaminophen 325 mg tablet RxNorm: 592389 1-2 Tablet(s) PO QID as needed for severe pain 10/03/2013 11/11/2013 Inactive diclofenac sodium 75 mg tablet,delayed release RxNorm: 00178 8 1 Tablet(s) PO BID for pain 09/11/2013 12/10/2013 Inactive alprazolam 0.5 mg tablet RxNorm: 438071 1 Tablet(s) PO BID May refill on 04/26/13 09/01/2013 10/30/2013 Inactive prn hydrocodone 10 mg-acetaminophen 325 mg tablet RxNorm: 476351 1-2 Tablet(s) PO QID as needed for severe pain 09/01/2013 10/02/2013 Inactive triamterene 75 mg-hydrochlorothiazide 50 mg tablet RxNorm: 3 92281 1 Tablet(s) PO QD 08/04/2013 08/31/2014 Inactive cyclobenzaprine 10 mg tablet RxNorm: 660658 1 Tablet(s) PO TID prn spasm 08/04/2013 08/13/2013 Inactive clonidine 0.1 mg tablet RxNorm: 558058 1 Tablet(s) PO TID 08/04/2013 11/11/2013 Inactive replaces 0.2mg dose cyclobenzaprine 10 mg tablet RxNorm: 739128 1 Tablet(s) PO TID prn spasm 07/23/2013 08/01/2013 Inactive hydrocodone 10 mg-acetaminophen 325 mg tablet RxNorm: 655658 2 1-2 Tablet(s) PO QID as needed for severe pain 06/09/2013 08/07/2013 Inactive Singulair 10 mg tablet RxNorm: 246577 1 Tablet(s) PO QD 05/29/2013 Inactive Klor-Con 8 mEq tablet,extended release RxNorm: 289814 1 Tablet( s) PO BID 05/29/2013 02/26/2014 Inactive allopurinol 300 mg tablet RxNorm: 667171 1 Tablet(s) PO QD 05/29/20 13 11/19/2013 Inactive Bystolic 10 mg tablet RxNorm: 759146 1 Tablet(s) PO QAM take one daily in the morning. 05/29/2013 11/11/2013 Inactive scopolamine 1.5 mg 72 hr Transderm Patch RxNorm: 247891 Application TD Q72H for motion sickness 05/26/2013 07/22/2013 Inactive Soma 350 mg tablet RxNorm: 769790 1 Tablet(s) PO TID as needed for spasm 05/19/2013 10/13/2013 Inactive diclofenac sodium 75 mg tablet,delayed release RxNorm: 49477 8 1 Tablet(s) PO BID for pain 05/14/2013 07/22/2013 Inactive allopurinol 300 mg tablet RxNorm: 244223 1 Tablet(s) PO QD 04/25/2005/28/2013 Inactive alprazolam 0.5 mg tablet RxNorm: 172389 1 Tablet(s) PO BID May refill on 04/26/13 04/25/2013 06/23/2013 Inactive prn Celebrex 200 mg capsule RxNorm: 275733 1 Capsule(s) PO QD 04/16/2013 12/29/2013 Inactive alprazolam 0.5 mg tablet RxNorm: 156021 1 Tablet(s) PO BID May refill on 04/26/13 04/16/2013 04/24/2013 Inactive prn Soma 350 mg tablet RxNorm: 944453 1 Tablet(s) PO TID as needed for spasm 04/16/2013 No Stop Date Active Lasix 40 mg tablet RxNorm: 278946 1 Tablet(s) PO QAM s hould take potassium supplementation with this medication 04/16/2013 06/14/2013 Inactive clonidine 0.1 mg tablet RxNorm: 295964 1 Tablet(s) PO TID 04/16/2013 08/03/2013 Inactive replaces 0.2mg dose prednisone 20 mg tablet RxNorm: 799609 1 Tablet(s) PO BID 04/16/2013 04/20/2013 Inactive diclofenac sodium 75 mg tablet,delayed release RxNorm: 49559 8 1 Tablet(s) PO BID for pain 04/14/2013 05/13/2013 Inactive hydrocodone 10 mg-acetaminophen 325 mg tablet RxNorm: 404815 2 1-2 Tablet(s) PO QID as needed for severe pain 04/14/2013 No Stop Date Active Lasix 40 mg tablet RxNorm: 844073 1 Tablet(s) PO QAM alan ramirez take potassium supplementation with this medication 03/31/2013 04/15/2013 Inactive Celebrex 200 mg capsule RxNorm: 529718 1 Capsule(s) PO QD 03/31/2013 04/15/2013 Inactive alprazolam 0.5 mg tablet RxNorm: 664813 1 Tablet(s) PO BID 03/28/20 13 04/15/2013 Inactive prn hydrocodone 10 mg-acetaminophen 325 mg tablet RxNorm: 831098 2 1-2 Tablet(s) PO QID as needed for severe pain 03/10/2013 No Stop Date Active metformin ER 500 mg 24 hr tablet,extended release RxNorm: 86 1018 1 Tablet(s) PO QD 03/06/2013 07/22/2013 Inactive clindamycin 300 mg capsule RxNorm: 012079 2 Capsule(s) PO TID 03/0503/14/2013 Inactive Zaroxolyn 2.5 mg tablet RxNorm: 708995 1 Tablet(s) PO QAM 03/05/2013 05/19/2015 Inactive amlodipine 10 mg tablet RxNorm: 846662 1 Tablet(s) PO QD 03/03/2013 0 05/25/2013 Inactive Norvasc 10 mg tablet RxNorm: 738129 1 Tablet(s) PO QD 02/28/201307/11 Inactive Celebrex 200 mg capsule RxNorm: 830719 1 Capsule(s) PO QD 02/28/2013 03/30/2013 Inactive diclofenac sodium 75 mg tablet,delayed release RxNorm: 30761 8 1 Tablet(s) PO BID for pain 02/14/2013 03/15/2013 Inactive Soma 350 mg tablet RxNorm: 528997 1 Tablet(s) PO TID as needed for spasm 02/14/2013 No Stop Date Active hydrocodone 10 mg-acetaminophen 325 mg tablet RxNorm: 884786 2 1-2 Tablet(s) PO QID as needed for severe pain 02/14/2013 No Stop Date Active Norvasc 10 mg tablet RxNorm: 634891 1 Tablet(s) PO QD 02/10/201302/09 Inactive Celebrex 200 mg capsule RxNorm: 278915 1 Capsule(s) PO QD 01/27/2013 01/26/2013 Inactive Premarin 1.25 mg tablet RxNorm: 620201 1-2 Tablet(s) PO QD 01/28/20 13 06/25/2013 Inactive alprazolam 0.5 mg tablet RxNorm: 475225 1 Tablet(s) PO BID 01/28/20 13 02/25/2013 Inactive prn amlodipine 5 mg tablet RxNorm: 619370 1 Tablet(s) PO QD 01/27/2013 Inactive Celebrex 200 mg capsule RxNorm: 900186 1 Capsule(s) PO QD 01/27/2013 02/27/2013 Inactive gabapentin 600 mg tablet RxNorm: 821839 1 Tablet(s) PO QHS 01/16/20 13 07/22/2013 Inactive Soma 350 mg tablet RxNorm: 732144 1 Tablet(s) PO TID as needed for spasm 01/15/2013 No Stop Date Active hydrocodone 10 mg-acetaminophen 325 mg tablet RxNorm: 621885 2 1-2 Tablet(s) PO QID as needed for severe pain 01/15/2013 No Stop Date Active Soma 350 mg tablet RxNorm: 902722 1 Tablet(s) PO TID as needed for spasm 01/13/2013 No Stop Date Active alprazolam 0.5 mg tablet RxNorm: 031272 1 Tablet(s) PO BID 12/31/19 13 01/26/2013 Inactive prn diclofenac sodium 75 mg tablet,delayed release RxNorm: 56383 8 1 Tablet(s) PO BID for pain 12/09/2012 01/07/2013 Inactive gabapentin 600 mg tablet RxNorm: 264261 1 Tablet(s) PO QHS 12/10/19 13 01/07/2013 Inactive hydrocodone 10 mg-acetaminophen 325 mg tablet RxNorm: 314413 2 1-2 Tablet(s) PO QID as needed for severe pain 12/02/2012 No Stop Date Active Levaquin 750 mg tablet RxNorm: 832086 1 Tablet(s) PO QD 11/21/2012 Inactive Singulair 10 mg tablet RxNorm: 450311 1 Tablet(s) PO QD 11/11/2012 Inactive clonidine 0.2 mg tablet RxNorm: 888331 1 Tablet(s) PO TID 11/11/2012 04/15/2013 Inactive alprazolam 0.5 mg tablet RxNorm: 252023 1 Tablet(s) PO BID 11/12/19 13 12/10/2012 Inactive prn Klor-Con 8 mEq tablet,extended release RxNorm: 014876 1 Tablet( s) PO BID 11/11/2012 03/04/2013 Inactive hydrocodone 10 mg-acetaminophen 325 mg tablet RxNorm: 115912 2 1-2 Tablet(s) PO QID as needed for severe pain 11/06/2012 No Stop Date Active alprazolam 0.5 mg tablet RxNorm: 972280 1 Tablet(s) PO BID 10/15/19 13 11/10/2012 Inactive prn hydrocodone-acetaminophen 10 mg-325 mg tablet RxNorm: 364869 2 1-2 Tablet(s) PO QID as needed for severe pain 10/10/2012 10/09/2012 Inactive allopurinol 300 mg tablet RxNorm: 624218 1 Tablet(s) PO QD 09/20/19 13 12/18/2012 Inactive alprazolam 0.5 mg tablet RxNorm: 356429 1 Tablet(s) PO BID 09/17/19 13 10/14/2012 Inactive prn hydrocodone-acetaminophen 10 mg-325 mg tablet RxNorm: 880928 2 1-2 Tablet(s) PO QID as needed for severe pain 08/22/2012 08/21/2012 Inactive Norvasc 10 mg tablet RxNorm: 115005 1 Tablet(s) PO QD 08/12/201201/10 Inactive Premarin 1.25 mg tablet RxNorm: 784596 1-2 Tablet(s) PO QD 07/30/20 12 12/26/2012 Inactive alprazolam 0.5 mg tablet RxNorm: 740109 1 Tablet(s) PO BID 07/29/20 12 08/27/2012 Inactive prn Klor-Con 8 mEq tablet,extended release RxNorm: 565887 1 Tablet( s) PO BID 07/29/2012 11/10/2012 Inactive hydrocodone-acetaminophen 10 mg-325 mg tablet RxNorm: 925799 2 1-2 Tablet(s) PO QID as needed for severe pain 07/29/2012 No Stop Date Active Premarin 1.25 mg tablet RxNorm: 194613 1-2 Tablet(s) PO QD 07/29/20 12 07/29/2012 Inactive clonidine 0.2 mg tablet RxNorm: 368769 1 Tablet(s) PO TID 07/29/2012 10/28/2012 Inactive ketorolac 10 mg tablet RxNorm: 130699 1 Tablet(s) PO QID prn he adache 07/18/2012 No Stop Date Active hydrocodone-acetaminophen 10 mg-325 mg tablet RxNorm: 897925 2 1-2 Tablet(s) PO QID as needed for severe pain 07/03/2012 No Stop Date Active amlodipine 5 mg tablet RxNorm: 172998 1 Tablet(s) PO QD 07/02/2012 Inactive allopurinol 300 mg tablet RxNorm: 208635 1 Tablet(s) PO QD 07/02/2009/19/2012 Inactive Celebrex 200 mg capsule RxNorm: 049550 1 Capsule(s) PO QD for j oint pain 06/26/2012 10/23/2012 Inactive diclofenac sodium 75 mg tablet,delayed release RxNorm: 74816 8 1 Tablet(s) PO BID for pain 06/19/2012 09/16/2012 Inactive hydrocodone-acetaminophen 10 mg-325 mg tablet RxNorm: 970533 2 1-2 Tablet(s) PO QID as needed for severe pain 06/10/2012 No Stop Date Active alprazolam 0.5 mg tablet RxNorm: 422032 1 Tablet(s) PO BID 06/03/20 12 07/02/2012 Inactive prn ketorolac 10 mg tablet RxNorm: 420973 1 Tablet(s) PO Q8H 05/27/2012 0 01/21/2019 Inactive as needed for headache hydrocodone-acetaminophen 10 mg-325 mg tablet RxNorm: 112669 2 1-2 Tablet(s) PO QID as needed for severe pain 05/15/2012 No Stop Date Active allopurinol 300 mg tablet RxNorm: 199682 1 Tablet(s) PO QD 05/14/20 12 06/12/2012 Inactive allopurinol 300 mg tablet RxNorm: 358780 1 Tablet(s) PO QD 05/14/2005/13/2012 Inactive amlodipine 5 mg tablet RxNorm: 377968 1 Tablet(s) PO QD 05/01/2012 Inactive amlodipine 5 mg Tab RxNorm: 355692 1 Tablet(s) PO QD 05/01/201204/30 Inactive Celebrex 200 mg capsule RxNorm: 613247 1 Capsule(s) PO QD for j oint pain 05/01/2012 06/25/2012 Inactive Singulair 10 mg tablet RxNorm: 771329 1 Tablet(s) PO QD 05/01/2012 Inactive alprazolam 0.5 mg tablet RxNorm: 611579 1 Tablet(s) PO BID 05/01/20 12 05/30/2012 Inactive prn Celebrex 200 mg Cap RxNorm: 351523 1 Capsule(s) PO QD for joint radu n 05/01/2012 04/30/2012 Inactive hydrocodone-acetaminophen 10 mg-325 mg tablet RxNorm: 095842 2 1-2 Tablet(s) PO QID as needed for severe pain 04/19/2012 No Stop Date Active Lasix 40 mg tablet RxNorm: 267089 1 Tablet(s) PO CORTEZM alan rajwinderuld take potassium supplementation with this medication 04/05/2012 06/03/2012 Inactive alprazolam 0.5 mg Tab RxNorm: 150556 1 Tablet(s) PO BID 04/05/2012 Inactive prn hydrocodone-acetaminophen 10 mg-325 mg Tab RxNorm: 9162295 1-2 Tablet(s) PO QID as needed for severe pain 03/25/2012 03/24/2012 Inactive clonidine 0.2 mg Tab RxNorm: 752074 1 Tablet(s) PO TID 03/08/2012 Inactive alprazolam 0.5 mg Tab RxNorm: 698674 1 Tablet(s) PO BID 03/08/2012 Inactive prn Soma 350 mg tablet RxNorm: 812813 1 Tablet(s) PO TID for spasm 02/0903/18/2012 Inactive clonidine 0.2 mg tablet RxNorm: 069673 1 Tablet(s) PO TID 03/08/2012 07/28/2012 Inactive Celebrex 200 mg Cap RxNorm: 694149 1 Capsule(s) PO QD for joint radu n 03/01/2012 04/29/2012 Inactive amlodipine 5 mg Tab RxNorm: 077062 1 Tablet(s) PO QD 02/26/201202/24 Inactive amlodipine 5 mg Tab RxNorm: 935769 1 Tablet(s) PO QD 02/26/201204/25 Inactive Bactroban 2 % Ointment RxNorm: 169513 Application TOP QID to sores 02/23/2012 No Stop Date Active amlodipine 2.5 mg tablet RxNorm: 372946 1 Tablet(s) PO QHS 02/20/20 12 02/25/2012 Inactive doxycycline hyclate 100 mg Cap RxNorm: 3638526 1 Capsule(s) PO BID 02/20/2012 02/29/2012 Inactive hydrocodone-acetaminophen 10 mg-325 mg Tab RxNorm: 8182788 1-2 T ablet(s) PO QID 02/08/2012 No Stop Date Active alprazolam 0.5 mg Tab RxNorm: 393504 1 Tablet(s) PO BID 02/08/2012 Inactive prn Singulair 10 mg Tab RxNorm: 447139 1 Tablet(s) PO QD 02/08/201204/30 Inactive Soma 350 mg Tab RxNorm: 081096 1 Tablet(s) PO TID for spasm 012 03/07/2012 Inactive Soma 350 mg Tab RxNorm: 237960 1 Tablet(s) PO TID for spasm 012 02/05/2012 Inactive diclofenac sodium 75 mg tablet,delayed release RxNorm: 41545 8 1 Tablet(s) PO BID for pain 02/01/2012 03/18/2012 Inactive Celebrex 200 mg Cap RxNorm: 847250 1 Capsule(s) PO QD for joint radu n 01/30/2012 02/28/2012 Inactive Lasix 40 mg Tab RxNorm: 440281 1 Tablet(s) PO QAM 01/24/2012 03/18/20 12 Inactive potassium chloride ER 20 mEq tablet,extended release(part/cr yst) RxNorm: 115451 2 Tablet(s) PO BID 01/24/2012 02/22/2012 Inactive alprazolam 0.5 mg Tab RxNorm: 158042 1 Tablet(s) PO BID 01/11/2012 Inactive prn hydrocodone-acetaminophen 10 mg-325 mg Tab RxNorm: 8951694 1-2 T ablet(s) PO QID 01/11/2012 No Stop Date Active Ambien 10 mg Tab RxNorm: 911148 1 Tablet(s) PO QHS 01/11/2012 012 Inactive Klor-Con 8 mEq Tab RxNorm: 635835 1 Tablet(s) PO BID 01/11/201201/22 Inactive diclofenac sodium 75 mg Tab, Delayed Release RxNorm: 286838 1 Tablet(s) PO BID for pain 01/10/2012 01/31/2012 Inactive Ambien 10 mg Tab RxNorm: 871070 1 Tablet(s) PO QHS 12/11/2011 012 Inactive alprazolam 0.5 mg Tab RxNorm: 579191 1 Tablet(s) PO BID 12/11/2011 Inactive prn hydrocodone 10 mg-acetaminophen 325 mg tablet RxNorm: 873362 1-2 Tablet(s) PO TID 11/28/2011 No Stop Date Active as needed for pa in - Previous quantity #240, will start dosing for #180 in April 2011 per Doctor Td. Ambien 10 mg Tab RxNorm: 561862 1 Tablet(s) PO QHS 11/09/2011 012 Inactive alprazolam 0.5 mg Tab RxNorm: 418990 1 Tablet(s) PO BID 11/09/2011 Inactive prn hydrocodone-acetaminophen 10 mg-325 mg Tab RxNorm: 6760994 1-2 T ablet(s) PO TID 11/06/2011 No Stop Date Active as needed for pain - Previous quantity #240, will start dosing for #180 in April 2011 per Doctor Td. Singulair 10 mg Tab RxNorm: 560396 1 Tablet(s) PO QD 10/13/201110/12 Inactive Singulair 10 mg Tab RxNorm: 106335 1 Tablet(s) PO QD 10/13/201102/06 Inactive hydrocodone-acetaminophen 10 mg-325 mg Tab RxNorm: 8188490 1-2 T ablet(s) PO TID 10/10/2011 10/09/2011 Inactive as needed for pain - Previous quantity #240, will start dosing for #180 in April 2011 per Doctor Td. hydrocodone-acetaminophen 10 mg-325 mg Tab RxNorm: 7325770 1-2 T ablet(s) PO TID 10/09/2011 No Stop Date Active as needed for pain - Previous quantity #240, will start dosing for #180 in April 2011 per Doctor Td. Klor-Con 8 mEq Tab RxNorm: 542875 1 Tablet(s) PO BID 10/02/201101/09 Inactive triamterene 75 mg-hydrochlorothiazide 50 mg tablet RxNorm: 3 35310 1 Tablet(s) PO QD 09/14/2011 03/06/2013 Inactive Ambien 10 mg Tab RxNorm: 159650 1 Tablet(s) PO QHS 09/14/2011 012 Inactive hydrocodone-acetaminophen 10 mg-325 mg Tab RxNorm: 2593368 1-2 T ablet(s) PO TID 09/14/2011 No Stop Date Active as needed for pain - Previous quantity #240, will start dosing for #180 in April 2011 per Doctor Td. alprazolam 0.5 mg Tab RxNorm: 593367 1 Tablet(s) PO BID 09/14/2011 Inactive prn Zithromax 500 mg Tab RxNorm: 726259 1 Tablet(s) PO QD 09/13/201109/10 Inactive prednisone 20 mg Tab RxNorm: 272551 1 Tablet(s) PO BID 08/31/2011 Inactive Ambien 10 mg Tab RxNorm: 034626 1 Tablet(s) PO QHS 08/17/2011 011 Inactive hydrocodone-acetaminophen 10 mg-325 mg Tab RxNorm: 1213835 1-2 T ablet(s) PO TID 08/17/2011 No Stop Date Active as needed for pain - Previous quantity #240, will start dosing for #180 in April 2011 per Doctor Td. clonidine 0.2 mg Tab RxNorm: 710668 1 Tablet(s) PO TID 08/17/201112/2011 Inactive Ambien 10 mg Tab RxNorm: 432334 1 Tablet(s) PO QHS 08/17/2011 019 Inactive alprazolam 0.5 mg Tab RxNorm: 754513 1 Tablet(s) PO BID 08/17/2011 Inactive prn hydrocodone-acetaminophen 10 mg-325 mg Tab RxNorm: 0273236 1-2 T ablet(s) PO TID 08/17/2011 08/16/2011 Inactive as needed for pain - Previous quantity #240, will start dosing for #180 in April 2011 per Doctor Td. Singulair 10 mg Tab RxNorm: 477003 1 Tablet(s) PO QD 08/17/201108/16 Inactive Klor-Con 8 mEq Tab RxNorm: 509904 1 Tablet(s) PO QD 08/17/20112011 Inactive alprazolam 0.5 mg Tab RxNorm: 799008 1 Tablet(s) PO BID 07/20/2011 Inactive prn Ambien 10 mg Tab RxNorm: 385358 1 Tablet(s) PO QHS 07/20/2011 012 Inactive Singulair 10 mg Tab RxNorm: 328988 1 Tablet(s) PO QD 07/20/201107/19 Inactive Premarin 1.25 mg tablet RxNorm: 806636 2 Tablet(s) PO QD 07/20/2011 0 01/21/2019 Inactive Premarin 1.25 mg tablet RxNorm: 514161 1-2 Tablet(s) PO QD 07/20/20 11 12/16/2011 Inactive Premarin 1.25 mg Tab RxNorm: 991647 1-2 Tablet(s) PO QD 07/06/2011 Inactive alprazolam 0.5 mg Tab RxNorm: 299086 1 Tablet(s) PO BID 06/22/2011 Inactive prn alprazolam 0.5 mg Tab RxNorm: 099556 1 Tablet(s) PO BID 06/22/2011 Inactive prn Premarin 1.25 mg Tab RxNorm: 233792 1 Tablet(s) PO QD m ay do 90 day fill if desired 06/22/2011 07/05/2011 Inactive hydrocodone-acetaminophen 10 mg-325 mg Tab RxNorm: 2280983 1-2 T ablet(s) PO TID 06/22/2011 No Stop Date Active as needed for pain - Previous quantity #240, will start dosing for #180 in April 2011 per Doctor Td. clonidine 0.2 mg Tab RxNorm: 446446 1 Tablet(s) PO TID 05/25/201103/2011 Inactive triamterene-hydrochlorothiazide 75 mg-50 mg Tab RxNorm: 3108 18 1 Tablet(s) PO QD 05/25/2011 09/13/2011 Inactive alprazolam 0.5 mg Tab RxNorm: 595549 1 Tablet(s) PO BID 05/25/2011 Inactive prn hydrocodone-acetaminophen 10 mg-325 mg Tab RxNorm: 3270151 1-2 T ablet(s) PO TID 05/25/2011 No Stop Date Active as needed for pain - Previous quantity #240, will start dosing for #180 in April 2011 per Doctor Td. Robaxin-750 750 mg Tab RxNorm: 771029 2 Tablet(s) PO QHS 05/22/2011 1 Inactive prn spasm hydrocodone-acetaminophen 10 mg-325 mg Tab RxNorm: 7837516 1-2 T ablet(s) PO TID 04/26/2011 No Stop Date Active as needed for pain - Previous quantity #240, will start dosing for #180 in April 2011 per Doctor Td. alprazolam 0.5 mg Tab RxNorm: 233166 1 Tablet(s) PO BID 04/25/2011 Inactive prn Klor-Con 8 mEq Tab RxNorm: 626693 1 Tablet(s) PO QD 03/30/20112010 Inactive Klor-Con 8 mEq Tab RxNorm: 372285 1 Tablet(s) PO QD 03/29/20112010 Inactive hydrocodone-acetaminophen 10 mg-325 mg Tab RxNorm: 1158517 1-2 T ablet(s) PO TID 03/20/2011 04/25/2011 Inactive as needed for pain - Previous quantity #240, will start dosing for #180 in April 2011 per Doctor Td. alprazolam 0.5 mg Tab RxNorm: 413089 1 Tablet(s) PO BID prn 011 03/30/2011 Inactive Ambien 10 mg Tab RxNorm: 717872 1 Tablet(s) PO QHS 03/01/2011 011 Inactive cyclobenzaprine 10 mg Tab RxNorm: 770824 1 Tablet(s) PO TID 011 03/18/2012 Inactive cyclobenzaprine 10 mg Tab RxNorm: 427145 1 Tablet(s) PO TID 011 01/08/2011 Inactive cyclobenzaprine 10 mg Tab RxNorm: 574059 1 Tablet(s) PO TID 011 12/20/2010 Inactive terbinafine 250 mg Tab RxNorm: 111448 1 Tablet(s) PO QD 12/12/2010 Inactive triamterene-hydrochlorothiazide 75 mg-50 mg Tab RxNorm: 3108 18 1 Tablet(s) PO QD 12/07/2010 06/04/2011 Inactive Klor-Con 8 8 mEq Tab RxNorm: 656424 1 Tablet(s) PO QD 12/07/201001/08 Inactive Premarin 1.25 mg Tab RxNorm: 878375 2 Tablet(s) PO QD 12/07/201001/08 Inactive clonidine 0.2 mg Tab RxNorm: 103762 1 Tablet(s) PO TID 12/07/2010 Inactive hydrocodone-acetaminophen 7.5 mg-650 mg Tab RxNorm: 969863 1 Ta blet(s) PO Q4H 12/05/2010 01/21/2019 Inactive hydrocodone-acetaminophen 7.5 mg-650 mg Tab RxNorm: 452679 1 Ta blet(s) PO Q4H 10/26/2010 11/14/2010 Inactive hydrocodone-acetaminophen 7.5 mg-650 mg Tab RxNorm: 035145 1 Ta blet(s) PO Q4H 10/13/2010 10/25/2010 Inactive hydrocodone-acetaminophen 7.5 mg-650 mg Tab RxNorm: 734570 1 Ta blet(s) PO Q4H 09/15/2010 09/12/2010 Inactive alprazolam 0.5 mg Tab RxNorm: 662369 1 Tablet(s) PO BID prn 011 09/12/2010 Inactive terbinafine 250 mg Tab RxNorm: 903217 1 Tablet(s) PO QD 09/05/2010 Inactive hydrocodone-acetaminophen 7.5 mg-650 mg Tab RxNorm: 468066 1 Ta blet(s) PO Q4H 08/29/2010 09/17/2010 Inactive alprazolam 0.5 mg Tab RxNorm: 880270 1 Tablet(s) PO BID prn 010 09/27/2010 Inactive alprazolam 0.5 mg Tab RxNorm: 037779 1 Tablet(s) PO BID prn 09/06/2010 Inactive Klor-Con 8 mEq Tab RxNorm: 214315 1 Tablet(s) PO QD 08/08/20102010 Inactive hydrocodone-acetaminophen 7.5 mg-650 mg Tab RxNorm: 014005 1 Ta blet(s) PO Q4H 08/08/2010 08/27/2010 Inactive Ambien 10 mg Tab RxNorm: 284195 1 Tablet(s) PO QHS 08/08/2010 Inactive clonidine 0.2 mg Tab RxNorm: 242448 1 Tablet(s) PO TID 08/08/2010 Inactive Premarin 1.25 mg Tab RxNorm: 628132 2 Tablet(s) PO QD 08/08/201009/12 Inactive Ambien 10 mg Tab RxNorm: 602875 1 Tablet(s) PO QHS 07/18/2010 Inactive alprazolam 0.5 mg Tab RxNorm: 471950 1 Tablet(s) PO BID prn 08/07/2010 Inactive hydrocodone-acetaminophen 7.5 mg-650 mg Tab RxNorm: 315137 1 Ta blet(s) PO Q4H 07/12/2010 07/31/2010 Inactive clonidine 0.2 mg Tab RxNorm: 332429 1 Tablet(s) PO TID 06/20/2010 Inactive terbinafine 250 mg Tab RxNorm: 046271 1 Tablet(s) PO QD 05/24/2010 Inactive Clonidine 0.2 mg Tab RxNorm: 549881 1 Tablet(s) PO TID 05/24/201006/2010 Inactive Ambien 10 mg Tab RxNorm: 743184 1 Tablet(s) PO QHS 05/24/2010 010 Inactive alprazolam 0.5 mg Tab RxNorm: 350505 1 Tablet(s) PO BID 05/24/2010 Inactive Klor-Con 8 mEq Tab RxNorm: 820003 1 Tablet(s) PO QD 05/24/20102009 Inactive alprazolam 0.5 mg Tab RxNorm: 013619 2 Tablet(s) PO QD prn 05/24/2007/17/2010 Inactive triamterene-hydrochlorothiazide 75 mg-50 mg Tab RxNorm: 3108 18 1 Tablet(s) PO QD 05/24/2010 11/19/2010 Inactive Ambien 10 mg Tab RxNorm: 799098 1 Tablet(s) PO QHS 05/23/2010 010 Inactive Alprazolam 0.5 mg Tab RxNorm: 903927 2 Tablet(s) PO QD prn 05/23/2005/23/2010 Inactive Premarin 1.25 mg Tab RxNorm: 412654 2 Tablet(s) PO QD 05/19/201007/12 Inactive Hydrocodone-Acetaminophen 7.5 mg-650 mg Tab RxNorm: 897090 1 Ta blet(s) PO Q4H 05/19/2010 03/20/2011 Inactive Prednisone 20 mg Tab RxNorm: 556308 1 Tablet(s) PO BID 05/17/2010 Inactive Prednisone 20 mg Tab RxNorm: 454687 1 Tablet(s) PO BID 05/06/201001/2010 Inactive Premarin 1.25 mg Tab RxNorm: 201110 Tablet(s) PO 2 M-W-F, and 1 Ca-Pg-Cqp-Sun 05/05/2010 08/02/2010 Inactive Premarin 1.25 mg Tab RxNorm: 250337 Tablet(s) PO 2 M-W-F, and 1 Uq-Sv-Fju-Sun 05/04/2010 05/04/2010 Inactive Premarin 1.25 mg Tab RxNorm: 181679 Tablet(s) PO 2 M-W-F, and 1 Zq-Yk-TuhSun 05/04/2010 05/03/2010 Inactive Prednisone 20 mg Tab RxNorm: 995953 1 Tablet(s) PO BID 04/27/2010 Inactive Alprazolam 0.5 mg Tab RxNorm: 777973 2 Tablet(s) PO QD prn 04/26/20 10 05/22/2010 Inactive Clindamycin 300 mg Cap RxNorm: 260319 2 Capsule(s) PO TID 04/05/2010 04/18/2010 Inactive Terbinafine 250 mg Tab RxNorm: 126198 1 Tablet(s) PO QD 04/04/2010 Inactive Hydrocodone-Acetaminophen 7.5 mg-650 mg Tab RxNorm: 147451 1 Ta blet(s) PO Q4H 03/30/2010 04/18/2010 Inactive Avelox 400 mg Tab RxNorm: 271186 1 Tablet(s) PO QD 03/09/2010 010 Inactive Hydrocodone-Acetaminophen 7.5 mg-650 mg Tab RxNorm: 414217 1 Ta blet(s) PO Q4H 03/08/2010 03/27/2010 Inactive Alprazolam 0.5 mg Tab RxNorm: 955495 2 Tablet(s) PO QD prn 03/08/20 10 04/25/2010 Inactive Klor-Con 8 mEq Tab RxNorm: 123836 1 Tablet(s) PO QD when takes lasi x 03/07/2010 09/29/2019 Inactive Premarin 1.25 mg Tab RxNorm: 065819 1 Tablet(s) PO QD 03/03/201003/11 Inactive Alprazolam 0.5 mg Tab RxNorm: 722558 1 Tablet(s) PO BID PRN 010 No Stop Date Active triamterene-hydrochlorothiazide 75 mg-50 mg Tab RxNorm: 3108 18 1 Tablet(s) PO QD 02/09/2010 02/03/2011 Inactive Hydrocodone-Acetaminophen 10 mg-750 mg Tab RxNorm: 920925 1 Tablet(s) PO Q4H PRN 02/09/2010 03/20/2011 Inactive Clonidine 0.2 mg Tab RxNorm: 474895 1 Tablet(s) PO TID 01/13/201009/2009 Inactive Alprazolam 0.5 mg Tab RxNorm: 643200 1 Tablet(s) PO BID PRN 010 01/12/2010 Inactive Hydrocodone-Acetaminophen 10 mg-750 mg Tab RxNorm: 116991 1 Tablet(s) PO Q4H PRN 01/13/2010 01/12/2010 Inactive ANGELIQ 1 mg-0.5 mg Tab RxNorm: 8953698 1 Tablet(s) PO QD 12/27/2009 01/23/2010 Inactive Lasix 40 mg Tab RxNorm: 639782 1 Tablet(s) PO QAM 12/14/2009 06/11/20 10 Inactive Vitamin B12 1000mcg Tablet RxNorm: 1 Tablet(s) PO QD No Start Date Active cyclobenzaprine 10 mg tablet RxNorm: 725009 1 Tablet(s) PO TID as needed DO NOT USE WITH BACLOFEN No Start Date Active Vitamin D 5,000 unit Tab RxNorm: 1 Tablet(s) PO QD No Start Date Active vitamin E (dl, acetate) 400 unit Cap RxNorm: 459602 1 Capsule(s ) PO QD No Start Date Active Benadryl 25 mg Cap RxNorm: 7239447 Capsule(s) PO PRN No Start Date Inactive amitriptyline 100 mg tablet RxNorm: 464182 1 Tablet(s) PO QHS No St art Date 11/27/2016 Inactive Zithromax Z-Dustin 250 mg tablet RxNorm: 562792 Tablet(s) PO as di rected No Start Date 07/22/2013 Inactive Klor-Con 8 mEq tablet,extended release RxNorm: 349688 1 Tablet( s) PO BID No Start Date 07/28/2012 Inactive scopolamine 1.5 mg 72 hr Transderm Patch RxNorm: 418435 Application TD Q72H for motion sickness No Start Date 05/25/2013 Inactive Klonopin 1 mg tablet RxNorm: 321956 1-2 Tablet(s) PO QHS as nee ded for sleep No Start Date 06/20/2015 Inactive Klor-Con M20 mEq tablet,extended release RxNorm: 401023 2 Tablet(s) PO BID to use with lasix No Start Date 11/11/2013 Inactive Bystolic 5 mg tablet RxNorm: 903644 1 Tablet(s) PO QD No Start Date 1 Inactive Bystolic 10 mg tablet RxNorm: 554620 1 Tablet(s) PO BID No Start Da te 07/06/2015 Inactive Premarin 1.25 mg Tab RxNorm: 382070 Tablet(s) PO 2 -W-, and 1 Kh-Xv-Ust-Sun No Start Date 05/03/2010 Inactive baclofen 20 mg tablet RxNorm: 232549 1 Tablet(s) PO TID as needed for muscle spasm No Start Date 07/22/2015 Inactive hydrocodone-acetaminophen 7.5 mg-650 mg Tab RxNorm: 686240 1 Tablet(s) PO Q4H as needed for pain No Start Date 03/20/2011 Inactive albuterol sulfate 1.25 mg/3 mL Neb Solution RxNorm: 096151 1 Unit Dose INH Q4H 2boxes No Start Date 09/06/2015 Inactive Butrans 20 mcg/hour Transderm Patch RxNorm: 414836 1 TD WEEKLY apply to skin weekly after removing previous. No Start Date 07/22/2013 Inactive Medrol (Dustin) 4 mg tablets in a dose pack RxNorm: 667993 Tablet(s) PO As Directed No Start Date 07/30/2016 Inactive hydrocodone-acetaminophen 10 mg-325 mg Tab RxNorm: 5072043 1-2 Tablet(s) PO TID as needed for pain No Start Date 03/19/2011 Inactive Klonopin 1 mg tablet RxNorm: 834894 1 Tablet(s) PO QHS No Start Date 02/28/2016 Inactive honey topical RxNorm: topical No Start Date 06/16/2018 Inactive Clonidine 0.2 mg Tab RxNorm: 288048 1 Tablet(s) PO TID No Start Date 01/12/2010 Inactive ketorolac 10 mg tablet RxNorm: 095599 1 Tablet(s) PO Q8H No Start D ate 03/18/2012 Inactive as needed for headache Singulair 10 mg Tab RxNorm: 101013 1 Tablet(s) PO QD No Start Date Inactive Premarin 1.25 mg Tab RxNorm: 847309 1 Tablet(s) PO QD No Start Date 1 Inactive Flonase 50 mcg/Actuation Nasal [place] RxNorm: 5643490 1 [place] BID No Start Date 03/18/2012 Inactive Terbinafine 250 mg Tab RxNorm: 633780 1 Tablet(s) PO QD No Start Da te 04/03/2010 Inactive Fexofenadine 180 mg Tab RxNorm: 7880402 1 Tablet(s) PO QD No Start Date 09/06/2015 Inactive baclofen 20 mg tablet RxNorm: 927522 1 Tablet(s) PO TID as needed N o Start Date 05/25/2014 Inactive Diovan 160 mg Tab RxNorm: 421403 1 Tablet(s) PO QD No Start Date 09/12 Inactive mupirocin 2 % topical ointment RxNorm: 107690 1 Application TOP QID No Start Date 04/25/2016 Inactive ZOFRAN ODT 4 mg Tab, Rapid Dissolve RxNorm: 197441 1 Tablet(s) PO Q4H No Start Date 03/18/2012 Inactive as needed for nausea and vomiting Alprazolam 0.5 mg Tab RxNorm: 369227 1 Tablet(s) PO BID PRN No Star t Date 01/12/2010 Inactive cyclobenzaprine 10 mg tablet RxNorm: 752441 1 Tablet(s) PO TID as needed for muscle spasm No Start Date 10/08/2017 Inactive Albuterol 0.083% Aerosol Solution RxNorm: 1 Appl ication INH Q4H Use one ampule every 4 hrs with nebulizer as needed for shortness of breath. No Start Date 10/09/2010 Inactive lorazepam 1 mg tablet RxNorm: 941985 1 1/2 Tablet(s) PO QHS No Star t Date 02/02/2016 Inactive Melatonin 3 mg Tab RxNorm: 010723 Tablet(s) PO PRN No Start Date 07/11 Inactive Medrol (Dustin) 4 mg Tabs in a Dose Pack RxNorm: 744720 Tablet(s) PO N o Start Date 11/28/2010 Inactive lorazepam 1 mg tablet RxNorm: 246742 1 Tablet(s) PO QHS as need ed for sleep No Start Date 01/30/2016 Inactive hydrocodone-acetaminophen 10 mg-325 mg Tab RxNorm: 2915179 1-2 Tablet(s) PO QID as needed for severe pain No Start Date 03/24/2012 Inactive celecoxib 200 mg capsule RxNorm: 803319 1 Capsule(s) PO BID No Star t Date 06/26/2019 Inactive amlodipine 5 mg-benazepril 20 mg capsule RxNorm: 581824 1 Capsu le(s) PO QD No Start Date 04/10/2017 Inactive Bystolic 20 mg tablet RxNorm: 826824 1/2 Tablet(s) PO QAM No Start Date 01/23/2016 Inactive Bystolic 20 mg tablet RxNorm: 713948 1 Tablet(s) PO QAM No Start Da te 04/25/2016 Inactive Ambien 10 mg Tab RxNorm: 358591 1 Tablet(s) PO QHS No Start Date 05/11 Inactive Klor-Con 8 mEq Tab RxNorm: 376742 1 Tablet(s) PO QD when takes lasix No Start Date 03/06/2010 Inactive aspirin 81 mg tablet RxNorm: 694743 1 Tablet(s) PO QD No Start Date 0 01/29/2018 Inactive hydrocodone-acetaminophen 10 mg-325 mg Tab RxNorm: 2553072 1-2 T ablet(s) PO QID No Start Date 01/10/2012 Inactive Bystolic 10 mg tablet RxNorm: 261305 1 Tablet(s) PO QAM take one daily in the morning. No Start Date 05/28/2013 Inactive nystatin 100,000 unit/mL Oral Susp RxNorm: 153848 5 Milliliter( s) PO QID No Start Date 03/18/2012 Inactive swish and spit scopolamine 1.5 mg 72 hr Transderm Patch RxNorm: 645759 1 Unit Dose TD Q72H for motion sickness No Start Date 12/23/2013 Inactive Hydrocodone-Acetaminophen 10 mg-750 mg Tab RxNorm: 329564 1 Tablet(s) PO Q4H PRN No Start Date 01/12/2010 Inactive Soma 350 mg tablet RxNorm: 946586 1 Tablet(s) PO TID as needed for spasm No Start Date 01/12/2013 Inactive baclofen 10 mg tablet RxNorm: 476269 1 Tablet(s) PO TID as needed for muscle spasm No Start Date 09/18/2019 Inactive Soma 350 mg Tab RxNorm: 390242 1 Tablet(s) PO TID for spasm No Star t Date 01/31/2012 Inactive Co Q-10 400 mg capsule RxNorm: 025269 1 Capsule(s) PO QD No Start D ate 01/21/2019 Inactive nystatin 100,000 unit/gram topical cream RxNorm: 552189 Applica tion TOP BID No Start Date 03/22/2015 Inactive Exforge 5 mg-160 mg Tab RxNorm: 161040 1 Tablet(s) PO QD No Start D ate 10/09/2010 Inactive Hydrocodone-Acetaminophen 7.5 mg-650 mg Tab RxNorm: 952867 1 Ta blet(s) PO Q4H No Start Date 03/07/2010 Inactive Robaxin-750 750 mg Tab RxNorm: 337858 1-2 Tablet(s) PO TID prn spasm No Start Date 05/21/2011 Inactive amlodipine 5 mg tablet RxNorm: 624638 1 Tablet(s) PO QHS No Start D ate 09/29/2015 Inactive oxycodone-acetaminophen 10 mg-325 mg tablet RxNorm: 3726721 1-2 Tablet(s) PO Q6H No Start Date 06/16/2018 Inactive Triamterene-Hydrochlorothiazide 75 mg-50 mg Tab RxNorm: 3108 18 1 Tablet(s) PO QD No Start Date 02/08/2010 Inactive Alprazolam 0.5 mg Tab RxNorm: 834431 2 Tablet(s) PO QD prn No Start Date 03/07/2010 Inactive Bystolic 20 mg tablet RxNorm: 395368 1 Tablet(s) PO QAM No Start Da te 08/17/2015 Inactive ketorolac 10 mg tablet RxNorm: 160249 1 Tablet(s) PO QID prn he adache No Start Date 07/17/2012 Inactive acyclovir 800 mg Tab RxNorm: 498500 1 Tablet(s) PO BID No Start Date 03/18/2012 Inactive duloxetine 60 mg capsule,delayed release RxNorm: 326026 1 Capsu le(s) PO QD No Start Date 09/29/2015 Inactive Norvasc 5 mg tablet RxNorm: 590612 1 Tablet(s) PO QHS No Start Date 1 10/18/2014 Inactive promethazine 25 mg tablet RxNorm: 267642 1 Tablet(s) PO Q8H use sparingly No Start Date 07/22/2013 Inactive alprazolam 0.5 mg tablet RxNorm: 561963 3 Tablet(s) PO QHS No Start Date 06/06/2015 Inactive Lunesta 3 mg tablet RxNorm: 476723 1 Tablet(s) PO QHS No Start Date 0 09/20/2017 Inactive hydrocodone-acetaminophen 10 mg-325 mg Tab RxNorm: 4637790 1-2 Tablet(s) PO TID as needed for pain No Start Date 12/10/2011 Inactive Coricidin HBP Cough & Cold 4 mg-30 mg Tab RxNorm: 6682393 Tablet (s) PO PRN No Start Date 10/09/2010 Inactive Bactroban 2 % Ointment RxNorm: 212809 Application TOP QID to so res No Start Date 02/22/2012 Inactive Flonase 50 mcg/actuation Nasal [place] RxNorm: 116740 2 [place] QHS No Start Date 03/03/2014 Inactive Medication Administered No Medication Administered data Immunizations Vaccine Codes Date Status Tetanus, Diptheria, Pertussis CVX: 115 02/27/2014 Results Observation Observation Code Item Item Code Result Date S [facility] Location COMPREHENSIVE METABOLIC 41421 AST 15 U/L 2019 Unknown COMPREHENSIVE METABOLIC 59692 ALT 13 U/L 2019 Unknown COMPREHENSIVE METABOLIC 55460 BUN 12 mg/dL 2019 Unknown COMPREHENSIVE METABOLIC 35594 ALBUMIN 3.9 g/dL 2019 Unknown COMPREHENSIVE METABOLIC 72450 CHLORIDE 97 mmol/L 2019 Unknown COMPREHENSIVE METABOLIC 74223 Bili Total 0.4 mg/dL 09/29 Unknown COMPREHENSIVE METABOLIC 86494 ALK PHOS 130 U/L 2019 Unknown COMPREHENSIVE METABOLIC 63734 SODIUM 136 mmol/L 09/29 Unknown COMPREHENSIVE METABOLIC 98096 CREATININE 0.92 mg/dL 09/11 Unknown COMPREHENSIVE METABOLIC 65320 CALCIUM 9.1 mg/dL 2019 Unknown COMPREHENSIVE METABOLIC 46765 POTASSIUM 4.4 mmol/L 09/29 Unknown COMPREHENSIVE METABOLIC 36396 Total Protein 6.2 g/dL Unknown COMPREHENSIVE METABOLIC 25734 Glucose 391 mg/dL 2019 Unknown COMPREHENSIVE METABOLIC 46660 Bicarbonate 30 mmol/L 09/11 Unknown COMPREHENSIVE METABOLIC 64890 AGAP 9 mmol/L 2019 Unknown MEAN GLUC 7368016 Calc Mean Gluc 332 mg/dL 09/29/2019 Unkn own COMPLETE BLOOD COUNT [id number] WBC 7.0 10e9/L 09/29/19 Unknown COMPLETE BLOOD COUNT [id number] RBC 4.69 10e12/L 2019 Unknown COMPLETE BLOOD COUNT 2996051 HEMOGLOBIN 14.6 g/dL 09/29/19 Unknown COMPLETE BLOOD COUNT 3148365 HEMATOCRIT 45.2 % 09/29/19 Unknown COMPLETE BLOOD COUNT [id number] MCV 96.4 fL 0 Unknown COMPLETE BLOOD COUNT [id number] MCH 31.1 pg 0 Unknown COMPLETE BLOOD COUNT 0010665 MCHC 32.3 g/dL 0 Unknown COMPLETE BLOOD COUNT 7598776 PLATELET COUNT 209 10e9/L Unknown COMPLETE BLOOD COUNT 4895711 Mean Plt Volume 9.8 fL Unknown COMPLETE BLOOD COUNT 0970863 Neut Auto 48.1 % 0 Unknown COMPLETE BLOOD COUNT 3010243 Lymph Auto 36.5 % 09/29/19 Unknown COMPLETE BLOOD COUNT 8844880 [place] Auto 8.6 % 0 Unknown COMPLETE BLOOD COUNT 8811054 RDW 13.4 % 0 Unknown COMPLETE BLOOD COUNT [id number] Eos Auto 6.5 % 0 Unknown COMPLETE BLOOD COUNT 4709604 Baso Auto 0.3 % 0 Unknown COMPLETE BLOOD COUNT 8511888 Neutrophil Abs 3.37 10e9/L Unknown COMPLETE BLOOD COUNT 2015648 Lymphocyte Abs 2.56 10e9/L Unknown COMPLETE BLOOD COUNT [id number] Monocyte Abs 0.60 10e9/L 09/11 Unknown COMPLETE BLOOD COUNT 5102020 Eosinophil Abs 0.46 10e9/L Unknown COMPLETE BLOOD COUNT 5445782 RDW-SD 45.9 fL 0 Unknown COMPLETE BLOOD COUNT [id number] Basophil Abs 0.02 10e9/L 09/11 Unknown LIPID GROUP 02468 Cholesterol 248 mg/dL 09/29/2019 Unkno wn LIPID GROUP 30613 Triglyceride 898 mg/dL 09/29/2019 Unkn own LIPID GROUP 01619 HDL CHOLESTEROL 41 mg/dL 09/29/2019 U nknown LIPID GROUP 32820 Chol/HDL Ratio 6.05 ratio 09/29/2019 U nknown LIPID GROUP 57018 NON-HDL Chol 207 mg/dL 09/29/2019 Unkn own LIPID GROUP 93607 LDL Cholesterol N/A Trig >400 020 Unknown GLYCOSYLATED HEMOGLOBIN TEST 85342 Hgb A1c 25285-8 13.2 % 0 09/29/2019 Unknown FREE T4 38428 T4 Free 0.75 ng/dL 09/29/2019 Unknown GFR CALC 0473623 GFR Non Afr Amr >60 mL/min 09/29/2019 Un known GFR CALC 3589611 GFR Afr Amr >60 mL/min 09/29/2019 Unknow n THYROID STIMULATING HORMONE 31314 TSH 4.245 uIU/mL 09/29/2019 Unknown COMPLETE BLOOD COUNT 8801092 WBC 10.7 10e9/L 018 Unknown COMPLETE BLOOD COUNT 2560830 RBC 4.59 10e12/L 2017 Unknown COMPLETE BLOOD COUNT 7762543 HEMOGLOBIN 14.8 g/dL 12/11/19 18 Unknown COMPLETE BLOOD COUNT 2527890 HEMATOCRIT 44.9 % 12/11/19 18 Unknown COMPLETE BLOOD COUNT 1275147 MCV 97.8 fL 8 Unknown COMPLETE BLOOD COUNT 8428810 MCH 32.2 pg 8 Unknown COMPLETE BLOOD COUNT 4256870 MCHC 33.0 g/dL 8 Unknown COMPLETE BLOOD COUNT 3320001 PLATELET COUNT 261 10e9/L 10/2017 Unknown COMPLETE BLOOD COUNT 1998392 Mean Plt Volume 9.5 fL 10/2017 Unknown COMPLETE BLOOD COUNT 1804850 Neut Auto 59.9 % 8 Unknown COMPLETE BLOOD COUNT 6369295 Lymph Auto 27.4 % 12/11/19 18 Unknown COMPLETE BLOOD COUNT 3644810 [place] Auto 8.2 % 8 Unknown COMPLETE BLOOD COUNT 6348090 RDW 13.3 % 8 Unknown COMPLETE BLOOD COUNT 1244412 Eos Auto 4.1 % 8 Unknown COMPLETE BLOOD COUNT 3598730 Baso Auto 0.4 % 8 Unknown COMPLETE BLOOD COUNT 0100545 Neutrophil Abs 6.41 10e9/L Unknown COMPLETE BLOOD COUNT 2199406 Lymphocyte Abs 2.93 10e9/L Unknown COMPLETE BLOOD COUNT 6434826 Monocyte Abs 0.88 10e9/L 10/2017 Unknown COMPLETE BLOOD COUNT 9706664 Eosinophil Abs 0.44 10e9/L Unknown COMPLETE BLOOD COUNT 1393545 RDW-SD 46.2 fL 8 Unknown COMPLETE BLOOD COUNT 9919702 Basophil Abs 0.04 10e9/L 10/2017 Unknown THYROID STIMULATING HORMONE 02364 TSH 4.015 uIU/mL 12/10/2017 Unknown COMPREHENSIVE METABOLIC 36192 AST 25 U/L 2017 Unknown COMPREHENSIVE METABOLIC 28886 ALT 17 U/L 2017 Unknown COMPREHENSIVE METABOLIC 98092 BUN 19 mg/dL 2017 Unknown COMPREHENSIVE METABOLIC 31996 ALBUMIN 4.0 g/dL 2017 Unknown COMPREHENSIVE METABOLIC 85150 CHLORIDE 91 mmol/L 2017 Unknown COMPREHENSIVE METABOLIC 64538 Bili Total 0.5 mg/dL 12/10 Unknown COMPREHENSIVE METABOLIC 80686 ALK PHOS 75 U/L 2017 Unknown COMPREHENSIVE METABOLIC 72240 SODIUM 136 mmol/L 12/10 Unknown COMPREHENSIVE METABOLIC 80410 CREATININE 1.05 mg/dL 10/2017 Unknown COMPREHENSIVE METABOLIC 77260 CALCIUM 8.9 mg/dL 2017 Unknown COMPREHENSIVE METABOLIC 88009 POTASSIUM 3.4 mmol/L 12/10 Unknown COMPREHENSIVE METABOLIC 37009 Total Protein 6.5 g/dL Unknown COMPREHENSIVE METABOLIC 19289 Glucose 138 mg/dL 2017 Unknown COMPREHENSIVE METABOLIC 21282 Bicarbonate 35 mmol/L 10/2017 Unknown COMPREHENSIVE METABOLIC 58568 AGAP 10 mmol/L 2017 Unknown MEAN GLUC 3015755 Calc Mean Gluc 171 mg/dL 12/10/2017 Unkn own LIPID GROUP 65235 Cholesterol 204 mg/dL 12/10/2017 Unkno wn LIPID GROUP 26055 Triglyceride 411 mg/dL 12/10/2017 Unkn own LIPID GROUP 80838 HDL CHOLESTEROL 50 mg/dL 12/10/2017 U nknown LIPID GROUP 27097 Chol/HDL Ratio 4.08 ratio 12/10/2017 U nknown LIPID GROUP 68063 NON-HDL Chol 154 mg/dL 12/10/2017 Unkn own LIPID GROUP 80992 LDL Cholesterol N/A Trig >400 018 Unknown GLYCOSYLATED HEMOGLOBIN TEST 33555 Hgb A1c 11355-4 7.6 % 0 12/10/2017 Unknown FREE T4 97856 T4 Free 1.40 ng/dL 12/10/2017 Unknown GFR CALC 1179666 GFR Non Afr Amr 55 mL/min 12/10/2017 Unk nown GFR CALC 2178102 GFR Afr Amr >60 mL/min 12/10/2017 Unknow n GFR CALC 9186581 GFR Non Afr Amr 48 mL/min 06/28/2017 Unk nown GFR CALC 2447221 GFR Afr Amr 59 mL/min 06/28/2017 Unknown COMPREHENSIVE METABOLIC 53500 AST 32 U/L 2016 Unknown COMPREHENSIVE METABOLIC 78035 ALT 22 U/L 2016 Unknown COMPREHENSIVE METABOLIC 05456 BUN 23 mg/dL 2016 Unknown COMPREHENSIVE METABOLIC 08470 ALBUMIN 4.7 g/dL 2016 Unknown COMPREHENSIVE METABOLIC 93027 CHLORIDE 89 mmol/L 2016 Unknown COMPREHENSIVE METABOLIC 11913 Bili Total 0.5 mg/dL 06/28 Unknown COMPREHENSIVE METABOLIC 89148 ALK PHOS 90 U/L 2016 Unknown COMPREHENSIVE METABOLIC 83922 SODIUM 135 mmol/L 06/28 Unknown COMPREHENSIVE METABOLIC 21914 CREATININE 1.18 mg/dL 06/10 Unknown COMPREHENSIVE METABOLIC 81549 CALCIUM 9.7 mg/dL 2016 Unknown COMPREHENSIVE METABOLIC 97015 POTASSIUM 3.5 mmol/L 06/28 Unknown COMPREHENSIVE METABOLIC 63868 Total Protein 7.7 g/dL Unknown COMPREHENSIVE METABOLIC 27982 Glucose 129 mg/dL 2016 Unknown COMPREHENSIVE METABOLIC 64095 Bicarbonate 34 mmol/L 06/10 Unknown COMPREHENSIVE METABOLIC 32067 AGAP 12 mmol/L 2016 Unknown LIPID GROUP 15322 HDL TEST 64 MG/DL 08/27/2014 Unknown LIPID GROUP 76884 TRIG 222 MG/DL 08/27/2014 Unknown LIPID GROUP 89384 TEST LDL 209 MG/DL 08/27/2014 Unknown LIPID GROUP 86129 CHOL 317 MG/DL 08/27/2014 Unknown LIPID GROUP 95681 RCHOL/HDL 4.95 RATIO 08/27/2014 Unknow n LIPID GROUP 18802 NON-HDL CH 253 MG/DL 08/27/2014 Unknow n GFR CALC 2952768 GFR AA >60 ML/MIN 08/27/2014 Unknown GFR CALC 5349389 GFR NON-AA >60 ML/MIN 08/27/2014 Unknown COMPLETE BLOOD COUNT 7513812 WBC 7.0 10e9/L 08/27/20 14 Unknown COMPLETE BLOOD COUNT 0205885 RBC 4.98 10e12/L 2013 Unknown COMPLETE BLOOD COUNT 2986569 HGB 15.6 g/dL 4 Unknown COMPLETE BLOOD COUNT 0579458 HCT DET 46.5 % 4 Unknown COMPLETE BLOOD COUNT 2365391 MCV 93.4 fL 4 Unknown COMPLETE BLOOD COUNT 8940915 MCH 31.3 pg 4 Unknown COMPLETE BLOOD COUNT 4517038 MCHC 33.5 g/dL 4 Unknown COMPLETE BLOOD COUNT 4610404 PLT 309 10e9/L 08/27/20 14 Unknown COMPLETE BLOOD COUNT 5494058 MPV 9.6 fL 4 Unknown COMPLETE BLOOD COUNT 7130624 CADEN % 57.2 % 4 Unknown COMPLETE BLOOD COUNT 4527921 LY % 33.2 % 4 Unknown COMPLETE BLOOD COUNT 6177049 MON % 7.3 % 4 Unknown COMPLETE BLOOD COUNT 2758585 EOS % 2.0 % 4 Unknown COMPLETE BLOOD COUNT 4679776 BASO % 0.3 % 4 Unknown COMPLETE BLOOD COUNT 2470100 RDW 13.7 % 4 Unknown COMPLETE BLOOD COUNT 4931046 ABS CADEN 4.00 10e9/L 014 Unknown COMPLETE BLOOD COUNT 7114947 ABS LYMPH 2.32 10e9/L 014 Unknown COMPLETE BLOOD COUNT 9408102 ABS MONO 0.51 10e9/L 014 Unknown COMPLETE BLOOD COUNT 4283537 ABS EOS 0.14 10e9/L 014 Unknown COMPLETE BLOOD COUNT 6595358 ABS BASO 0.02 10e9/L 014 Unknown COMPLETE BLOOD COUNT 7187585 RDW-SD 45.1 fL 4 Unknown COMPREHENSIVE METABOLIC 41481 AST 13 U/L 2013 Unknown COMPREHENSIVE METABOLIC 49956 ALT 11 IU/L 2013 Unknown COMPREHENSIVE METABOLIC 02721 BUN 23 MG/DL 2013 Unknown COMPREHENSIVE METABOLIC 48343 ALBUMIN 4.4 GM/DL 2013 Unknown COMPREHENSIVE METABOLIC 43959 CHLORIDE 99 MMOL/L 2013 Unknown COMPREHENSIVE METABOLIC 81164 BILI TOT 0.5 MG/DL 2013 Unknown COMPREHENSIVE METABOLIC 70300 ALK PHOS 56 U/L 2013 Unknown COMPREHENSIVE METABOLIC 23455 SODIUM 138 MMOL/L 08/27 Unknown COMPREHENSIVE METABOLIC 04027 CREATININE 0.95 MG/DL 08/10 Unknown COMPREHENSIVE METABOLIC 11141 CALCIUM 9.8 MG/DL 2013 Unknown COMPREHENSIVE METABOLIC 58380 POTASSIUM 3.5 MMOL/L 08/27 Unknown COMPREHENSIVE METABOLIC 97679 PROT TOT 6.8 GM/DL 2013 Unknown COMPREHENSIVE METABOLIC 95392 Glucose 90 MG/DL 2013 Unknown COMPREHENSIVE METABOLIC 33828 BICARB 34 MMOL/L 2013 Unknown COMPREHENSIVE METABOLIC 94646 ANION GAP 5 MEQ/L 2013 Unknown LIPASE 88101 LIPASE 11 IU/L 07/21/2014 Unknown AMYLASE 09276 AMYLASE 39 IU/L 07/21/2014 Unknown HEMOGLOBIN A1C (GLYCOSYLATED) 3142544 A1C HPLC 15850-1 6.2 % 03/05/2013 Unknown THYROID STIMULATING HORMONE 23237 TSH 6.986 uIU/ML 03/05/2013 Unknown COMPLETE BLOOD COUNT 1470304 WBC 12.7 10e9/L 013 Unknown COMPLETE BLOOD COUNT 8450501 RBC 4.53 10e12/L 2012 Unknown COMPLETE BLOOD COUNT 9552409 HGB 14.7 g/dL 3 Unknown COMPLETE BLOOD COUNT 4609709 HCT DET 43.1 % 3 Unknown COMPLETE BLOOD COUNT 0404577 MCV 95.1 fL 3 Unknown COMPLETE BLOOD COUNT 5141175 MCH 32.5 pg 3 Unknown COMPLETE BLOOD COUNT 9389485 MCHC 34.1 g/dL 3 Unknown COMPLETE BLOOD COUNT 4395079 PLT 346 10e9/L 03/05/20 13 Unknown COMPLETE BLOOD COUNT 5894477 MPV 9.5 fL 3 Unknown COMPLETE BLOOD COUNT 4852064 CADEN % 67.6 % 3 Unknown COMPLETE BLOOD COUNT 6253649 LY % 22.1 % 3 Unknown COMPLETE BLOOD COUNT 9934216 MON % 6.6 % 3 Unknown COMPLETE BLOOD COUNT 3480384 EOS % 3.3 % 3 Unknown COMPLETE BLOOD COUNT 3819110 BASO % 0.4 % 3 Unknown COMPLETE BLOOD COUNT 6072414 RDW 14.0 % 3 Unknown COMPLETE BLOOD COUNT 2906148 ABS CADEN 8.59 10e9/L 013 Unknown COMPLETE BLOOD COUNT 9829917 ABS LYMPH 2.81 10e9/L 013 Unknown COMPLETE BLOOD COUNT [id number] ABS MONO 0.84 10e9/L 013 Unknown COMPLETE BLOOD COUNT 0872106 ABS EOS 0.42 10e9/L 013 Unknown COMPLETE BLOOD COUNT 8745885 ABS BASO 0.05 10e9/L 013 Unknown COMPLETE BLOOD COUNT 7747386 RDW-SD 46.0 fL 3 Unknown FREE T4 42468 FREE T4 1.14 NG/DL 03/05/2013 Unknown COMPREHENSIVE METABOLIC 27489 AST 17 U/L 2012 Unknown COMPREHENSIVE METABOLIC 97138 ALT 12 IU/L 2012 Unknown COMPREHENSIVE METABOLIC 08790 BUN 24 MG/DL 2012 Unknown COMPREHENSIVE METABOLIC 51341 ALBUMIN 4.2 GM/DL 2012 Unknown COMPREHENSIVE METABOLIC 25584 CHLORIDE 93 MMOL/L 2012 Unknown COMPREHENSIVE METABOLIC 47002 BILI TOT 0.5 MG/DL 2012 Unknown COMPREHENSIVE METABOLIC 47834 ALK PHOS 75 U/L 2012 Unknown COMPREHENSIVE METABOLIC 44908 SODIUM 141 MMOL/L 03/05 Unknown COMPREHENSIVE METABOLIC 45213 CREATININE 1.36 MG/DL 02/09 Unknown COMPREHENSIVE METABOLIC 08669 CALCIUM 9.2 MG/DL 2012 Unknown COMPREHENSIVE METABOLIC 36808 POTASSIUM 3.1 MMOL/L 03/05 Unknown COMPREHENSIVE METABOLIC 38291 PROT TOT 6.9 GM/DL 2012 Unknown COMPREHENSIVE METABOLIC 54936 Glucose 123 MG/DL 2012 Unknown COMPREHENSIVE METABOLIC 90072 BICARB 36 MMOL/L 2012 Unknown COMPREHENSIVE METABOLIC 80948 ANION GAP 12 MEQ/L 2012 Unknown GFR CALC 0800809 GFR AA 51.0L ML/MIN 03/05/2013 Unknow n GFR CALC 0173254 GFR NON-AA 42.0L ML/MIN 03/05/2013 Unkno wn COMPREHENSIVE METABOLIC 98695 AST 14 U/L 2012 Unknown COMPREHENSIVE METABOLIC 83915 ALT 11 IU/L 2012 Unknown COMPREHENSIVE METABOLIC 34863 BUN 16 MG/DL 2012 Unknown COMPREHENSIVE METABOLIC 89413 ALBUMIN 4.2 GM/DL 2012 Unknown COMPREHENSIVE METABOLIC 10615 CHLORIDE 98 MMOL/L 2012 Unknown COMPREHENSIVE METABOLIC 27074 BILI TOT 0.4 MG/DL 2012 Unknown COMPREHENSIVE METABOLIC 52030 ALK PHOS 77 U/L 2012 Unknown COMPREHENSIVE METABOLIC 17484 SODIUM 139 MMOL/L 09/25 Unknown COMPREHENSIVE METABOLIC 91117 CREATININE 0.86 MG/DL 09/10 Unknown COMPREHENSIVE METABOLIC 19384 CALCIUM 9.5 MG/DL 2012 Unknown COMPREHENSIVE METABOLIC 45951 POTASSIUM 3.8 MMOL/L 09/25 Unknown COMPREHENSIVE METABOLIC 97894 PROT TOT 6.8 GM/DL 2012 Unknown COMPREHENSIVE METABOLIC 43341 Glucose 91 MG/DL 2012 Unknown COMPREHENSIVE METABOLIC 79806 BICARB 32 MMOL/L 2012 Unknown COMPREHENSIVE METABOLIC 95739 ANION GAP 9 MEQ/L 2012 Unknown FREE T4 95956 FREE T4 0.98 NG/DL 09/25/2012 Unknown THYROID STIMULATING HORMONE 73907 TSH 1.736 uIU/ML 09/25/2012 Unknown C-REACTIVE PROTEIN (CRP) QUANT 03779 CRP 2.3 MG/DL 09/25/2012 Unknown COMPLETE BLOOD COUNT 8171953 WBC 11.9 10e9/L 013 Unknown COMPLETE BLOOD COUNT 6926152 RBC 4.87 10e12/L 2012 Unknown COMPLETE BLOOD COUNT 2286565 HGB 15.1 g/dL 3 Unknown COMPLETE BLOOD COUNT 2047032 HCT DET 44.8 % 3 Unknown COMPLETE BLOOD COUNT 5720592 MCV 92.0 fL 3 Unknown COMPLETE BLOOD COUNT 4520933 MCH 31.0 pg 3 Unknown COMPLETE BLOOD COUNT 4347465 MCHC 33.7 g/dL 3 Unknown COMPLETE BLOOD COUNT 7770017 PLT 343 10e9/L 09/25/19 13 Unknown COMPLETE BLOOD COUNT 7052885 MPV 9.0 fL 3 Unknown COMPLETE BLOOD COUNT 7379528 CADEN % 68.2 % 3 Unknown COMPLETE BLOOD COUNT 3670213 LY % 22.4 % 3 Unknown COMPLETE BLOOD COUNT 0075562 MON % 6.4 % 3 Unknown COMPLETE BLOOD COUNT 2622408 EOS % 2.7 % 3 Unknown COMPLETE BLOOD COUNT 6787096 BASO % 0.3 % 3 Unknown COMPLETE BLOOD COUNT 0480690 RDW 13.8 % 3 Unknown COMPLETE BLOOD COUNT 3445342 ABS CADEN 8.12 10e9/L 013 Unknown COMPLETE BLOOD COUNT 8358450 ABS LYMPH 2.67 10e9/L 013 Unknown COMPLETE BLOOD COUNT 5069831 ABS MONO 0.76 10e9/L 013 Unknown COMPLETE BLOOD COUNT 5590686 ABS EOS 0.32 10e9/L 013 Unknown COMPLETE BLOOD COUNT 3443001 ABS BASO 0.04 10e9/L 013 Unknown COMPLETE BLOOD COUNT 2479730 RDW-SD 45.6 fL 3 Unknown GFR CALC 7344793 GFR AA >60 ML/MIN 09/25/2012 Unknown GFR CALC 6760093 GFR NON-AA >60 ML/MIN 09/25/2012 Unknown ERYTHROCYTE SEDIMENTATION RATE 29701 ESR 19 MM/HR 05/06/2012 Unknown VITAMIN B 12 FOLIC ACID 53829|60273 VIT B 12 922 PG/ML 04/11 Unknown VITAMIN B 12 FOLIC ACID 89100|34748 FOLIC ACID 13.6 NG/ML Unknown URIC ACID 68275 URIC ACID 7.8 MG/DL 05/06/2012 Unknown COMPLETE BLOOD COUNT 60291 WBC 11.9 10e9/L 012 Unknown COMPLETE BLOOD COUNT 82882 RBC 5.30 10e12/L 2011 Unknown COMPLETE BLOOD COUNT 79622 HGB 16.6 g/dL 2 Unknown COMPLETE BLOOD COUNT 05536 HCT DET 47.2 % 2 Unknown COMPLETE BLOOD COUNT 06650 MCV 89.1 fL 2 Unknown COMPLETE BLOOD COUNT 07494 MCH 31.3 pg 2 Unknown COMPLETE BLOOD COUNT 76240 MCHC 35.2 g/dL 2 Unknown COMPLETE BLOOD COUNT 11232 PLT 362 10e9/L 05/06/20 12 Unknown COMPLETE BLOOD COUNT 17585 MPV 9.4 fL 2 Unknown COMPLETE BLOOD COUNT 19299 CADEN % 68.2 % 2 Unknown COMPLETE BLOOD COUNT 03466 LY % 22.0 % 2 Unknown COMPLETE BLOOD COUNT 98486 MON % 6.9 % 2 Unknown COMPLETE BLOOD COUNT 08119 EOS % 2.6 % 2 Unknown COMPLETE BLOOD COUNT 71449 BASO % 0.3 % 2 Unknown COMPLETE BLOOD COUNT 64141 RDW 12.8 % 2 Unknown COMPLETE BLOOD COUNT 48492 ABS CADEN 8.12 10e9/L 012 Unknown COMPLETE BLOOD COUNT 53206 ABS LYMPH 2.62 10e9/L 012 Unknown COMPLETE BLOOD COUNT 03788 ABS MONO 0.82 10e9/L 012 Unknown COMPLETE BLOOD COUNT 59665 ABS EOS 0.31 10e9/L 012 Unknown COMPLETE BLOOD COUNT 88327 ABS BASO 0.04 10e9/L 012 Unknown COMPLETE BLOOD COUNT 49736 RDW-SD 41.5 fL 2 Unknown GFR CALC 8538959 GFR AA >60 ML/MIN 05/06/2012 Unknown GFR CALC 1199579 GFR NON-AA 58.0L ML/MIN 05/06/2012 Unkno wn FREE T4 63237 FREE T4 1.15 NG/DL 05/06/2012 Unknown THYROID STIMULATING HORMONE 61189 TSH 1.568 uIU/ML 05/06/2012 Unknown COMPREHENSIVE METABOLIC 12461 AST 20 U/L 2011 Unknown COMPREHENSIVE METABOLIC 05077 ALT 12 IU/L 2011 Unknown COMPREHENSIVE METABOLIC 81661 BUN 20 MG/DL 2011 Unknown COMPREHENSIVE METABOLIC 18821 ALBUMIN 4.5 GM/DL 2011 Unknown COMPREHENSIVE METABOLIC 58311 CHLORIDE 91 MMOL/L 2011 Unknown COMPREHENSIVE METABOLIC 38589 BILI TOT 0.4 MG/DL 2011 Unknown COMPREHENSIVE METABOLIC 12551 ALK PHOS 73 U/L 2011 Unknown COMPREHENSIVE METABOLIC 44309 SODIUM 139 MMOL/L 05/06 Unknown COMPREHENSIVE METABOLIC 05685 CREATININE 1.02 MG/DL 04/11 Unknown COMPREHENSIVE METABOLIC 67614 CALCIUM 9.7 MG/DL 2011 Unknown COMPREHENSIVE METABOLIC 20199 POTASSIUM 3.1 MMOL/L 05/06 Unknown COMPREHENSIVE METABOLIC 26580 PROT TOT 7.3 GM/DL 2011 Unknown COMPREHENSIVE METABOLIC 73179 Glucose 118 MG/DL 2011 Unknown COMPREHENSIVE METABOLIC 00186 BICARB 33 MMOL/L 2011 Unknown COMPREHENSIVE METABOLIC 59230 ANION GAP 15 MEQ/L 2011 Unknown Procedures Procedure Codes Date ROUTINE VENIPUNCTURE CPT-4: 54497 09/29/2019 URINALYSIS NONAUTO W/O SCOPE CPT-4: 71195 09/29/2019 COMPREHEN METABOLIC PANEL CPT-4: 82379 09/29/2019 LIPID PANEL CPT-4: 62916 09/29/2019 A1C HPLC CPT-4: 70849 09/29/2019 ASSAY OF FREE THYROXINE CPT-4: 76005 09/29/2019 ASSAY THYROID STIM HORMONE CPT-4: 55136 09/29/2019 COMPLETE CBC W/AUTO DIFF WBC CPT-4: 73701 09/29/2019 URINALYSIS NONAUTO W/O SCOPE CPT-4: 36470 09/30/2018 MICROALBUMIN QUANTITATIVE CPT-4: 14370 09/30/2018 CEFTRIAXONE SODIUM INJECTION CPT-4: J0696 06/19/2018 THER/PROPH/DIAG INJ SC/IM CPT-4: 37507 06/19/2018 CEFTRIAXONE SODIUM INJECTION CPT-4: J0696 06/17/2018 THER/PROPH/DIAG INJ SC/IM CPT-4: 36621 06/17/2018 THER/PROPH/DIAG INJ SC/IM CPT-4: 37257 05/16/2018 KETOROLAC TROMETHAMINE INJ CPT-4: J1885 05/16/2018 ONDANSETRON HCL INJECTION CPT-4: J2405 05/16/2018 THER/PROPH/DIAG INJ SC/IM CPT-4: 01745 05/16/2018 ROUTINE VENIPUNCTURE CPT-4: 62339 03/20/2018 COMPREHEN METABOLIC PANEL CPT-4: 03330 03/20/2018 DEXAMETHASONE SODIUM PHOS CPT-4: J1100 02/11/2018 THER/PROPH/DIAG INJ SC/IM CPT-4: 45461 02/11/2018 TRIAMCINOLONE ACET INJ NOS CPT-4: J3301 02/11/2018 CEFTRIAXONE SODIUM INJECTION CPT-4: J0696 02/01/2018 THER/PROPH/DIAG INJ SC/IM CPT-4: 65192 02/01/2018 CEFTRIAXONE SODIUM INJECTION CPT-4: J0696 01/30/2018 THER/PROPH/DIAG INJ SC/IM CPT-4: 98524 01/30/2018 ROUTINE VENIPUNCTURE CPT-4: 96064 12/10/2017 ASSAY OF FREE THYROXINE CPT-4: 83141 12/10/2017 ASSAY THYROID STIM HORMONE CPT-4: 34790 12/10/2017 COMPREHEN METABOLIC PANEL CPT-4: 55620 12/10/2017 COMPLETE CBC W/AUTO DIFF WBC CPT-4: 99680 12/10/2017 LIPID PANEL CPT-4: 26702 12/10/2017 A1C HPLC CPT-4: 60447 12/10/2017 CEFTRIAXONE SODIUM INJECTION CPT-4: J0696 12/10/2017 THER/PROPH/DIAG INJ SC/IM CPT-4: 06064 12/10/2017 CEFTRIAXONE SODIUM INJECTION CPT-4: J0696 12/07/2017 THER/PROPH/DIAG INJ SC/IM CPT-4: 99175 12/07/2017 DEXAMETHASONE SODIUM PHOS CPT-4: J1100 12/07/2017 THER/PROPH/DIAG INJ SC/IM CPT-4: 69216 12/07/2017 CEFTRIAXONE SODIUM INJECTION CPT-4: J0696 10/08/2017 THER/PROPH/DIAG INJ SC/IM CPT-4: 77426 10/08/2017 CEFTRIAXONE SODIUM INJECTION CPT-4: J0696 09/21/2017 THER/PROPH/DIAG INJ SC/IM CPT-4: 04647 09/21/2017 CEFTRIAXONE SODIUM INJECTION CPT-4: J0696 09/20/2017 THER/PROPH/DIAG INJ SC/IM CPT-4: 57342 09/20/2017 REMOVAL OF NAIL PLATE CPT-4: 19437 08/29/2017 THER/PROPH/DIAG INJ SC/IM CPT-4: 63555 08/29/2017 TRIAMCINOLONE ACET INJ NOS CPT-4: J3301 08/29/2017 CEFTRIAXONE SODIUM INJECTION CPT-4: J0696 08/29/2017 THER/PROPH/DIAG INJ SC/IM CPT-4: 29069 08/29/2017 DESTRUCT PREMALG LESION (Cryosurgery) CPT-4: 09797 ROUTINE VENIPUNCTURE CPT-4: 74354 06/27/2017 ASSAY OF FREE THYROXINE CPT-4: 10012 06/27/2017 ASSAY THYROID STIM HORMONE CPT-4: 94170 06/27/2017 COMPREHEN METABOLIC PANEL CPT-4: 79545 06/27/2017 COMPLETE CBC W/AUTO DIFF WBC CPT-4: 46368 06/27/2017 EXC TR-EXT B9+REECE 0.5 CM< CPT-4: 08888 01/24/2017 THER/PROPH/DIAG INJ SC/IM CPT-4: 88550 08/02/2016 DEXAMETHASONE SODIUM PHOS CPT-4: J1100 08/02/2016 DESTRUCT PREMALG LESION (Cryosurgery) CPT-4: 90356 EXC TR-EXT B9+REECE 0.5 CM< CPT-4: 51524 08/01/2016 AEROBIC WOUND CULTURE & STN CPT-4: 58441 07/06/2016 CEFTRIAXONE SODIUM INJECTION CPT-4: J0696 05/25/2016 THER/PROPH/DIAG INJ SC/IM CPT-4: 06199 05/25/2016 THER/PROPH/DIAG INJ SC/IM CPT-4: 06593 04/26/2016 DEXAMETHASONE SODIUM PHOS CPT-4: J1100 04/26/2016 CEFTRIAXONE SODIUM INJECTION CPT-4: J0696 04/26/2016 THER/PROPH/DIAG INJ SC/IM CPT-4: 04355 04/26/2016 THER/PROPH/DIAG INJ SC/IM CPT-4: 63700 02/09/2016 TRIAMCINOLONE ACET INJ NOS CPT-4: J3301 02/09/2016 URINALYSIS NONAUTO W/O SCOPE CPT-4: 12458 01/24/2016 URINE CULTURE/ COLONY COUNT CPT-4: 25794 01/24/2016 THER/PROPH/DIAG INJ SC/IM CPT-4: 18819 12/08/2015 TRIAMCINOLONE ACET INJ NOS CPT-4: J3301 12/08/2015 THER/PROPH/DIAG INJ SC/IM CPT-4: 96036 10/07/2015 TRIAMCINOLONE ACET INJ NOS CPT-4: J3301 10/07/2015 DESTRUCT PREMALG LESION (Cryosurgery) CPT-4: 20704 THER/PROPH/DIAG INJ SC/IM CPT-4: 24833 03/16/2015 METHYLPREDNISOLONE 40 MG INJ CPT-4: J1030 03/16/2015 DESTRUCT PREMALG LESION (Cryosurgery) CPT-4: 29085 THER/PROPH/DIAG INJ SC/IM CPT-4: 05770 09/11/2014 METHYLPREDNISOLONE 40 MG INJ CPT-4: J1030 09/11/2014 TRIAMCINOLONE ACET INJ NOS CPT-4: J3301 09/11/2014 CEFTRIAXONE SODIUM INJECTION CPT-4: J0696 09/11/2014 THER/PROPH/DIAG INJ SC/IM CPT-4: 67176 09/11/2014 ROUTINE VENIPUNCTURE CPT-4: 76771 08/27/2014 COMPREHEN METABOLIC PANEL CPT-4: 01509 08/27/2014 COMPLETE CBC W/AUTO DIFF WBC CPT-4: 58878 08/27/2014 LIPID PANEL CPT-4: 97673 08/27/2014 ROUTINE VENIPUNCTURE CPT-4: 61289 07/21/2014 ASSAY OF AMYLASE CPT-4: 18850 07/21/2014 ASSAY OF LIPASE CPT-4: 83355 07/21/2014 THER/PROPH/DIAG INJ SC/IM CPT-4: 94151 07/15/2014 TRIAMCINOLONE ACET INJ NOS CPT-4: J3301 07/15/2014 ROUTINE VENIPUNCTURE CPT-4: 01781 05/14/2014 ASSAY OF FREE THYROXINE CPT-4: 00543 05/14/2014 ASSAY THYROID STIM HORMONE CPT-4: 04508 05/14/2014 COMPREHEN METABOLIC PANEL CPT-4: 00969 05/14/2014 COMPLETE CBC W/AUTO DIFF WBC CPT-4: 05313 05/14/2014 LIPID PANEL CPT-4: 36120 05/14/2014 CEFTRIAXONE SODIUM INJECTION CPT-4: J0696 04/21/2014 THER/PROPH/DIAG INJ SC/IM CPT-4: 97129 04/21/2014 THER/PROPH/DIAG INJ SC/IM CPT-4: 85574 04/21/2014 TRIAMCINOLONE ACET INJ NOS CPT-4: J3301 04/21/2014 THER/PROPH/DIAG INJ SC/IM CPT-4: 39340 03/04/2014 METHYLPREDNISOLONE 40 MG INJ CPT-4: J1030 03/04/2014 TRIAMCINOLONE ACET INJ NOS CPT-4: J3301 03/04/2014 CEFTRIAXONE SODIUM INJECTION CPT-4: J0696 03/04/2014 THER/PROPH/DIAG INJ SC/IM CPT-4: 95663 03/04/2014 TDAP VACCINE 7 YRS/> IM CPT-4: 43130 02/27/2014 IMMUNIZATION ADMIN CPT-4: 58355 02/27/2014 DESTRUCT PREMALG LESION (Cryosurgery) CPT-4: 05606 DESTRUCT PREMALG LES 2-14 CPT-4: 53973 01/13/2014 THER/PROPH/DIAG INJ SC/IM CPT-4: 46217 10/21/2013 METHYLPREDNISOLONE 40 MG INJ CPT-4: J1030 10/21/2013 TRIAMCINOLONE ACET INJ NOS CPT-4: J3301 10/21/2013 CEFTRIAXONE SODIUM INJECTION CPT-4: J0696 08/27/2013 THER/PROPH/DIAG INJ SC/IM CPT-4: 23837 08/27/2013 THER/PROPH/DIAG INJ SC/IM CPT-4: 02435 08/27/2013 METHYLPREDNISOLONE 40 MG INJ CPT-4: J1030 08/27/2013 TRIAMCINOLONE ACET INJ NOS CPT-4: J3301 08/27/2013 THER/PROPH/DIAG INJ SC/IM CPT-4: 64977 06/23/2013 METHYLPREDNISOLONE 40 MG INJ CPT-4: J1030 06/23/2013 TRIAMCINOLONE ACET INJ NOS CPT-4: J3301 06/23/2013 THER/PROPH/DIAG INJ SC/IM CPT-4: 87724 05/26/2013 METHYLPREDNISOLONE 40 MG INJ CPT-4: J1030 05/26/2013 TRIAMCINOLONE ACET INJ NOS CPT-4: J3301 05/26/2013 ROUTINE VENIPUNCTURE CPT-4: 48347 03/05/2013 ASSAY OF FREE THYROXINE CPT-4: 52657 03/05/2013 ASSAY THYROID STIM HORMONE CPT-4: 86134 03/05/2013 COMPREHEN METABOLIC PANEL CPT-4: 25362 03/05/2013 COMPLETE CBC W/AUTO DIFF WBC CPT-4: 19514 03/05/2013 A1C GLYCOSYLATED HEMOGLOBIN TEST CPT-4: 13095 013 DRAIN/INJECT JOINT/BURSA CPT-4: 62160 12/04/2012 METHYLPREDNISOLONE 40 MG INJ CPT-4: J1030 12/04/2012 TRIAMCINOLONE ACET INJ NOS CPT-4: J3301 12/04/2012 CEFTRIAXONE SODIUM INJECTION CPT-4: J0696 11/21/2012 THER/PROPH/DIAG INJ SC/IM CPT-4: 93970 11/21/2012 THER/PROPH/DIAG INJ SC/IM CPT-4: 11779 10/14/2012 METHYLPREDNISOLONE 40 MG INJ CPT-4: J1030 10/14/2012 TRIAMCINOLONE ACET INJ NOS CPT-4: J3301 10/14/2012 URINALYSIS NONAUTO W/O SCOPE CPT-4: 70676 09/27/2012 ROUTINE VENIPUNCTURE CPT-4: 54509 09/25/2012 ASSAY OF FREE THYROXINE CPT-4: 09579 09/25/2012 ASSAY THYROID STIM HORMONE CPT-4: 95145 09/25/2012 COMPREHEN METABOLIC PANEL CPT-4: 42263 09/25/2012 COMPLETE CBC W/AUTO DIFF WBC CPT-4: 25066 09/25/2012 C-REACTIVE PROTEIN CPT-4: 10895 09/25/2012 THER/PROPH/DIAG INJ SC/IM CPT-4: 13474 08/29/2012 METHYLPREDNISOLONE 40 MG INJ CPT-4: J1030 08/29/2012 TRIAMCINOLONE ACET INJ NOS CPT-4: J3301 08/29/2012 DESTRUCT PREMALG LESION (Cryosurgery) CPT-4: 67096 THER/PROPH/DIAG INJ SC/IM CPT-4: 50963 05/06/2012 METHYLPREDNISOLONE 40 MG INJ CPT-4: J1030 05/06/2012 TRIAMCINOLONE ACET INJ NOS CPT-4: J3301 05/06/2012 VITAMIN B 12 FOLIC ACID CPT-4: 13656|83359 05/06/2012 RBC SED RATE AUTOMATED CPT-4: 91400 05/06/2012 ROUTINE VENIPUNCTURE CPT-4: 45316 05/06/2012 ASSAY OF FREE THYROXINE CPT-4: 85622 05/06/2012 ASSAY THYROID STIM HORMONE CPT-4: 63954 05/06/2012 COMPREHEN METABOLIC PANEL CPT-4: 10077 05/06/2012 COMPLETE CBC W/AUTO DIFF WBC CPT-4: 81228 05/06/2012 ASSAY OF BLOOD/URIC ACID CPT-4: 00391 05/06/2012 THER/PROPH/DIAG INJ SC/IM CPT-4: 88167 03/19/2012 KETOROLAC TROMETHAMINE INJ CPT-4: J1885 03/19/2012 KETOROLAC TROMETHAMINE INJ CPT-4: J1885 01/30/2012 THER/PROPH/DIAG INJ SC/IM CPT-4: 33411 01/30/2012 PROMETHAZINE HCL INJECTION CPT-4: J2550 01/30/2012 THER/PROPH/DIAG INJ SC/IM CPT-4: 76613 01/24/2012 METHYLPREDNISOLONE 40 MG INJ CPT-4: J1030 01/24/2012 TRIAMCINOLONE ACET INJ NOS CPT-4: J3301 01/24/2012 THER/PROPH/DIAG INJ SC/IM CPT-4: 13077 09/13/2011 KETOROLAC TROMETHAMINE INJ CPT-4: J1885 09/13/2011 THER/PROPH/DIAG INJ SC/IM CPT-4: 10644 09/13/2011 PROMETHAZINE HCL INJECTION CPT-4: J2550 09/13/2011 CEFTRIAXONE SODIUM INJECTION CPT-4: J0696 07/20/2011 THER/PROPH/DIAG INJ SC/IM CPT-4: 29423 07/20/2011 THER/PROPH/DIAG INJ SC/IM CPT-4: 61227 07/20/2011 METHYLPREDNISOLONE INJECTION CPT-4: J2930 07/20/2011 URINALYSIS NONAUTO W/O SCOPE CPT-4: 34268 05/09/2011 CEFTRIAXONE SODIUM INJECTION CPT-4: J0696 05/09/2011 THER/PROPH/DIAG INJ SC/IM CPT-4: 23065 05/09/2011 THER/PROPH/DIAG INJ SC/IM CPT-4: 11788 05/09/2011 PROMETHAZINE HCL INJECTION CPT-4: J2550 05/09/2011 HYDRATION IV INFUSION INIT CPT-4: 79382 05/09/2011 DESTRUCT PREMALG LESION (Cryosurgery) CPT-4: 54357 DESTRUCT PREMALG LES 2-14 CPT-4: 36332 07/19/2010 REMOVAL OF SKIN TAGS <W/15 CPT-4: 02281 05/30/2010 THER/PROPH/DIAG INJ SC/IM CPT-4: 86309 04/05/2010 CEFTRIAXONE SODIUM INJECTION CPT-4: J0696 04/05/2010 TRIAMCINOLONE ACET INJ NOS CPT-4: J3301 04/05/2010 METHYLPREDNISOLONE 40 MG INJ CPT-4: J1030 04/05/2010 THER/PROPH/DIAG INJ SC/IM CPT-4: 18055 04/05/2010 TRIAMCINOLONE ACET INJ NOS CPT-4: J3301 03/09/2010 METHYLPREDNISOLONE 40 MG INJ CPT-4: J1030 03/09/2010 THER/PROPH/DIAG INJ SC/IM CPT-4: 11582 03/09/2010 THER/PROPH/DIAG INJ SC/IM CPT-4: 19396 03/09/2010 CEFTRIAXONE SODIUM INJECTION CPT-4: J0696 03/09/2010 [...] 1: 132/80 Code: 8480-6 BMI: 35.8 Code: 78845-4 Heart Rate 1: 88 bpm Height: 5'4" Respiratory Rate: 20 bpm SpO2: 95% Tempera ture: 36.9 (C) / 98.5 (F) Weight: 210 lbs 05/28/2019 Blood Pressure 1: 126/82 Code: 8480-6 BMI: 35.0 Code: 67031-0 Heart Rate 1: 88 bpm Height: 5'4" [...] 1: 128/90 Code: 8480-6 BMI: 37.2 Code: 59918-0 Heart Rate 1: 84 bpm Height: 5'4" Respiratory Rate: 20 bpm SpO2: 95% Tempera ture: 36.6 (C) / 97.8 (F) Weight: 217 lbs 08/27/2018 Blood Pressure 1: 128/88 Code: 8480-6 BMI: 38.3 Code: 83584-3 Heart Rate 1: 84 bpm Height: 5'4" [...] 1: 119/72 Code: 8480-6 BMI: 37.4 Code: 66456-2 Heart Rate 1: 82 bpm Height: 5'4" Respiratory Rate: 12 bpm SpO2: 94% Tempera ture: 35.2 (C) / 95.4 (F) Weight: 218 lbs 12/18/2017 Blood Pressure 1: 128/86 Code: 8480-6 BMI: 37.8 Code: 64095-0 Heart Rate 1: 84 bpm Height: 5'4" [...] 1: 128/82 Code: 8480-6 BMI: 35.5 Code: 83477-5 Heart Rate 1: 84 bpm Height: 5'4" [...] 1: 128/82 Code: 8480-6 BMI: 30.2 Code: 20288-3 Heart Rate 1: 80 bpm Height: 5'4" [...] 1: 128/86 Code: 8480-6 BMI: 32.8 Code: 77712-7 Heart Rate 1: 66 bpm Height: 5'4" Respiratory Rate: 18 bpm Temperature: 36 .3 (C) / 97.3 (F) Weight: 191 lbs 06/23/2013 Blood Pressure 1: 132/94 Code: 8480-6 BMI: 34.0 Code: 31068-8 Heart Rate 1: 84 bpm Height: 5'4" Respiratory Rate: 20 bpm Temperature: 36 .8 (C) / 98.2 (F) Weight: 198 lbs 05/26/2013 Blood Pressure 1: 114/80 Code: 8480-6 BMI: 35.0 Code: 22895-5 Heart Rate 1: 80 bpm Height: 5'4" Respiratory Rate: 20 bpm Temperature: 36 .4 (C) / 97.6 (F) Weight: 204 lbs 04/16/2013 Blood Pressure 1: 114/82 Code: 8480-6 BMI: 36.7 Code: 87372-5 Heart Rate 1: 84 bpm Height: 5'4" Respiratory Rate: 20 bpm Temperature: 36 .7 (C) / 98.0 (F) Weight: 214 lbs 03/05/2013 Blood Pressure 1: 136/90 Code: 8480-6 BMI: 37.1 Code: 57955-9 Heart Rate 1: 84 bpm Height: 5'4" [...] 1: 168/114 Code: 8480-6 BMI: 36.2 Code: 90093-3 Heart Rate 1: 104 bpm Height: 5'4" Respiratory Rate: 20 bpm Temperature: 36 .8 (C) / 98.2 (F) Weight: 211 lbs 11/22/2012 Blood Pressure 1: 128/90 Code: 8480-6 Heart Rate 1: 88 bpm Respiratory Rate: 20 bpm SpO2: 96% Temperature: 36.8 (C) / 98.2 (F) 11/21/2012 Blood Pressure 1: 146/100 Code: 8480-6 BMI: 35.7 Code: 53410-7 Heart Rate 1: 96 bpm Height: 5'4" [...] 1: 138/100 Code: 8480-6 BMI: 35.7 Code: 65241-7 Heart Rate 1: 96 bpm Height: 5'4" Respiratory Rate: 20 bpm Temperature: 36 .8 (C) / 98.2 (F) Weight: 208 lbs 05/06/2012 Blood Pressure 1: 154/102 Code: 8480-6 BMI: 34.7 Code: 85386-8 Heart Rate 1: 116 bpm Height: 5'4" Respiratory Rate: 20 bpm Temperature: 36 .8 (C) / 98.2 (F) Weight: 202 lbs 04/03/2012 Blood Pressure 1: 134/94 Code: 8480-6 BMI: 34.8 Code: 62238-1 Heart Rate 1: 108 bpm Height: 5'4" Respiratory Rate: 20 bpm Temperature: 36 .8 (C) / 98.2 (F) Weight: 203 lbs 03/19/2012 Blood Pressure 1: 148/106 Code: 8480-6 BMI: 35.0 Code: 92409-5 Heart Rate 1: 100 bpm Height: 5'4" Respiratory Rate: 20 bpm Temperature: 36 .6 (C) / 97.9 (F) Weight: 204 lbs 02/22/2012 Blood Pressure 1: 146/94 Code: 8480-6 He art Rate 1: 88 bpm 02/21/2012 Blood Pressure 1: 172/120 Code: 8480-6 B lood Pressure 2: 152/106 Code: 8480-6 Heart Rate 1: 116 bpm 02/20/2012 Blood Pressure 1: 160/100 Code: 8480-6 BMI: 32.0 Code: 03135-3 Heart Rate 1: 84 bpm Height: 5'7" Temperature: 36.5 (C) / 97.7 (F) Weight: 204 lbs 01/30/2012 Blood Pressure 1: 152/110 Code: 8480-6 BMI: 32.0 Code: 57886-7 Heart Rate 1: 116 bpm Height: 5'7" Respiratory Rate: 20 bpm Temperature: 37 .0 (C) / 98.6 (F) Weight: 204 lbs 01/24/2012 Blood Pressure 1: 146/100 Code: 8480-6 BMI: 32.0 Code: 94514-1 Heart Rate 1: 100 bpm Height: 5'7" Respiratory Rate: 20 bpm Temperature: 36 .7 (C) / 98.0 (F) Weight: 204 lbs 01/10/2012 Blood Pressure 1: 156/94 Code: 8480-6 BMI: 32.6 Code: 38828-7 Heart Rate 1: 72 bpm Height: 5'7" Respiratory Rate: 20 bpm Temperature: 36 .8 (C) / 98.2 (F) Weight: 208 lbs 12/11/2011 Blood Pressure 1: 146/100 Code: 8480-6 Heart Rat e 1: 116 bpm Height: 5'7" Respiratory Rate: 20 bpm Temperature: 36.9 (C) / 98.4 (F) We ight: 11/09/2011 Blood Pressure 1: 148/96 Code: 8480-6 BMI: 32.1 Code: 04496-4 Heart Rate 1: 116 bpm Height: 5'7" Respiratory Rate: 20 bpm Temperature: 36 .7 (C) / 98.0 (F) Weight: 205 lbs 09/13/2011 Blood Pressure 1: 126/88 Code: 8480-6 Heart Rate 1: 88 bpm Height: 5'7" Respiratory Rate: 20 bpm Temperature: 36.9 (C) / 98.4 (F) We ight: 08/31/2011 Blood Pressure 1: 118/82 Code: 8480-6 BMI: 32.0 Code: 66038-9 Heart Rate 1: 80 bpm Height: 5'7" Temperature: 36.4 (C) / 97.6 (F) Weight: 204 lbs 07/06/2011 Blood Pressure 1: 128/86 Code: 8480-6 BMI: 30.9 Code: 01958-0 Heart Rate 1: 92 bpm Height: 5'7" Respiratory Rate: 20 bpm Temperature: 36 .9 (C) / 98.4 (F) Weight: 197 lbs 06/06/2011 Blood Pressure 1: 112/74 Code: 8480-6 BMI: 31.0 Code: 26800-4 Heart Rate 1: 72 bpm Height: 5'7" [...] 1: 128/92 Code: 8480-6 BMI: 33.6 Code: 74821-3 Heart Rate 1: 104 bpm Height: 5'4" [...] Check-up Encounters Encounter Performer Location Codes Date ([id number]) OFFICE/OUTPATIENT VISIT EST Diagnosis: Type 2 diabetes mellitus with hyperglycemia[ICD10: E11.65] María Elena Hicks [employer] [facility] CPT-4: 61003 11/20/2019 ([id number]) OFFICE/OUTPATIENT VISIT EST Diagnosis: Ingrowing nail[ICD10: L60.0] Diagnosis: Type 2 diabetes mellitus with hyperglycemia[ICD10: E11.65] Kathleen Nadia APPIAH [facility] CPT-4: 35576 10/07/2019 ([id number]) OFFICE/OUTPATIENT VISIT EST Diagnosis: DM w/o complication type II, uncontrolled[ICD10: E11.65] Diagnosis: Hypertriglyceridemia[ICD10: E78.1] Diagnosis: Essential hypertension[ICD10: I10] María Elena Waymindimaryjane APPIAH [facility] CPT-4: 10779 09/30/2019 ([id number]) NURSE/OUTPATIENT VISIT EST Diagnosis: Essential (primary) hypertension[ICD10: I10] Diagnosis: Cervicalgia[ICD10: M54.2] Diagnosis: Hyperglycemia, unspecified[ICD10: R73.9] Diagnosis: Mixed hyperlipidemia[ICD10: E78.2] María Elenagael BASURTO TED APPIAH [facility] CPT-4: 67150 09/29/2019 ([id number]) OFFICE/OUTPATIENT VISIT EST Diagnosis: Essential (primary) hypertension[ICD10: I10] Diagnosis: Fall from bed, sequela[ICD10: W06.XXXS] María Elenamarcella Appiah KYLAH BRAUNGAEL Fabiola APPIAH [facility] CPT-4: 27670 05/28/2019 ([id number]) NURSE/OUTPATIENT VISIT EST Diagnosis: Essential (primary) hypertension[ICD10: I10] María Elena Orendmaryjane APPIAH [facility] CPT-4: 46820 05/19/2019 ([id number]) OFFICE/OUTPATIENT VISIT EST Diagnosis: Essential (primary) hypertension[ICD10: I10] Diagnosis: Type 2 diabetes mellitus with hyperglycemia[ICD10: E11.65] Diagnosis: Intervertebral disc disorders with radiculopathy, 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] Diagnosis: Hormone replacement therapy[ICD10: Z79.890] María Elena MONTEROQUELINE Fabiola APPIAH [facility] CPT-4: 19360 01/22/2019 ([id number]) OFFICE/OUTPATIENT VISIT EST Diagnosis: Essential (primary) hypertension[ICD10: I10] Diagnosis: Type 2 diabetes mellitus with hyperglycemia[ICD10: E11.65] María Elena APPIAH [facility] CPT-4: 66358 09/30/2018 ([id number]) OFFICE/OUTPATIENT VISIT EST Diagnosis: Pain in left elbow[ICD10: M25.522] Diagnosis: Acute stress reaction[ICD10: F43.0] Diagnosis: Primary insomnia[ICD10: F51.01] Diagnosis: Abnormal weight gain[ICD10: R63.5] María Elena APPIAH [facility] CPT-4: 83262 08/27/2018 ([id number]) OFFICE/OUTPATIENT VISIT EST Diagnosis: Acute recurrent sinusitis, unspecified[ICD10: J01.91] Diagnosis: Follicular disorder, unspecified[ICD10: L73.9] Diagnosis: Tinea corporis[ICD10: B35.4] María Elena APPIAH [facility] CPT-4: 94591 08/09/2018 ([id number]) OFFICE/OUTPATIENT VISIT EST Diagnosis: Tinea corporis[ICD10: B35.4] Diagnosis: Anxiety disorder, unspecified[ICD10: F41.9] Diagnosis: Menopausal and female climacteric states[ICD10: N95.1] María Elena APPIAH [facility] CPT-4: 37643 07/22/2018 ([id number]) NURSE/OUTPATIENT VISIT EST Diagnosis: Cellulitis of right toe[ICD10: L03.031] María Elena APPIAH [facility] CPT-4: 51228 06/19/2018 ([id number]) OFFICE/OUTPATIENT VISIT EST Diagnosis: Cellulitis of right toe[ICD10: L03.031] [facility] CPT-4: 61897 06/17/2018 ([id number]) OFFICE/OUTPATIENT VISIT EST Diagnosis: Migraine without aura, intractable, without status migrainosus[ICD10: G43.019] Diagnosis: Zoster without complications[ICD10: B02.9] Kathleen APPIAH [facility] CPT-4: 50668 05/16/2018 ([id number]) OFFICE/OUTPATIENT VISIT EST Diagnosis: Cellulitis of right lower limb[ICD10: L03.115] Kathleen APPIA[facility] CPT-4: 17075 03/20/2018 ([id number]) OFFICE/OUTPATIENT VISIT EST Diagnosis: Cellulitis of right lower limb[ICD10: L03.115] Kathlene APPIAH [facility] CPT-4: 39178 03/18/2018 ([id number]) OFFICE/OUTPATIENT VISIT EST Diagnosis: Cellulitis of right lower limb[ICD10: L03.115] Kathleen APPIAH [facility] CPT-4: 78162 03/15/2018 ([id number]) OFFICE/OUTPATIENT VISIT EST Diagnosis: Acute sinusitis, unspecified[ICD10: J01.90] Kathleen APPIAH [facility] CPT-4: 21086 02/11/2018 ([id number]) NURSE/OUTPATIENT VISIT EST Diagnosis: Otitis media, unspecified, right ear[ICD10: H66.91] María Elena APPIAH DO [facility] CPT-4: 62780 02/01/2018 ([id number]) OFFICE/OUTPATIENT VISIT EST Diagnosis: Acute suppurative otitis media without spontaneous rupture of ear drum, left ear[ICD10: H66.002] Diagnosis: Abnormal weight gain[ICD10: R63.5] Diagnosis: Intervertebral disc disorders with radiculopathy, 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] Kathleen APPIAH [facility] CPT-4: 99 214 01/30/2018 ([id number]) PREV VISIT EST AGE 40-64 Diagnosis: Encounter for general adult medical examination without abnormal findings[ICD10: Z00.00] Diagnosis: Essential (primary) hypertension[ICD10: I10] Diagnosis: Mixed hyperlipidemia[ICD10: E78.2] Diagnosis: Type 2 diabetes mellitus with hyperglycemia[ICD10: E11.65] Diagnosis: 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] María Elena APPIAH [facility] CPT-4: 45944 12/18/2017 ([id number]) OFFICE/OUTPATIENT VISIT EST Diagnosis: Cellulitis of right toe[ICD10: L03.031] Diagnosis: Mixed hyperlipidemia[ICD10: E78.2] Diagnosis: Essential (primary) hypertension[ICD10: I10] Diagnosis: Hyperglycemia, unspecified[ICD10: R73.9] Diagnosis: Nontoxic goiter, 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] María Elena APPIAH [facility] CPT-4: 02274 12/10/2017 ([id number]) OFFICE/OUTPATIENT VISIT EST Diagnosis: Cellulitis of right toe[ICD10: L03.031] Diagnosis: Acute sinusitis, unspecified[ICD10: J01.90] Kathleen APPIAH DO [facility] CPT-4: 07407 12/07/2017 OFFICE/OUTPATIENT VISIT EST Diagnosis: Acute maxillary sinusitis, unspecified[ICD10: J01.00] Kathleen APPIAH DO [facility] CPT-4: 20842 10/08/2017 ([id number]) OFFICE/OUTPATIENT VISIT EST Diagnosis: Cellulitis of left toe[ICD10: L03.032] María Elena APPIAH DO [facility] CPT-4: 66574 09/21/2017 ([id number]) OFFICE/OUTPATIENT VISIT EST Diagnosis: Insomnia, unspecified[ICD10: G47.00] Diagnosis: Major depressive disorder, single episode, unspecified[ICD10: F32.9] Diagnosis: Anxiety disorder, unspecified[ICD10: F41.9] Diagnosis: Cellulitis of left toe[ICD10: L03.032] Diagnosis: Snoring[ICD10: R06.83] Ktahleen APPIAH DO [facility] CPT-4: 87595 09/20/2017 ([id number]) OFFICE/OUTPATIENT VISIT EST Diagnosis: Cellulitis of left toe[ICD10: L03.032] María Elena APPIAH DO [facility] CPT-4: 23806 07/19/2017 OFFICE/OUTPATIENT VISIT EST Diagnosis: Chronic sinusitis, unspecified[ICD10: J32.9] Diagnosis: Generalized hyperhidrosis[ICD10: R61] Kathleen APPIAH DO [facility] CPT-4: 97275 06/27/2017 ([id number]) OFFICE/OUTPATIENT VISIT EST Diagnosis: Intervertebral disc disorders with radiculopathy, 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] Diagnosis: Primary insomnia[ICD10: F51.01] Diagnosis: Other fatigue[ICD10: R53.83] María Elena APPIAH DO [facility] CPT-4: 56188 04/10/2017 ([id number]) OFFICE/OUTPATIENT VISIT EST Diagnosis: Primary insomnia[ICD10: F51.01] Diagnosis: Localized edema[ICD10: R60.0] Diagnosis: 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] María Elena APPIAH [facility] CPT-4: 08670 12/13/2016 ([id number]) OFFICE/OUTPATIENT VISIT EST Diagnosis: Primary insomnia[ICD10: F51.01] Diagnosis: Cyanosis[ICD10: R23.0] María Elena Bazzi [facility] CPT-4: 39106 11/01/2016 ([id number]) PREV VISIT EST AGE 40-64 Diagnosis: Encounter for gynecological examination (general) (routine) without abnormal findings[ICD10: Z01.419] Diagnosis: Encounter for routine child health examination without abnormal findings[ICD10: Z00.129] María Elena APPIAH [facility] CPT-4: 46497 10/17/2016 ([id number]) OFFICE/OUTPATIENT VISIT EST Diagnosis: Other seasonal allergic rhinitis[ICD10: J30.2] María Elena APPIAH [facility] CPT-4: 48533 10/10/2016 ([id number]) OFFICE/OUTPATIENT VISIT EST Diagnosis: Pain in left arm[ICD10: M79.602] Diagnosis: Contact with and (suspected) exposure to potentially hazardous body fluids[ICD10: Z77.21] Diagnosis: 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, 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] Diagnosis: Unspecified open wound, right foot, sequela[ICD10: S91.301S] María Elena APPIAH [facility] CPT-4: 41073 09/19/2016 ([id number]) OFFICE/OUTPATIENT VISIT EST Diagnosis: Chronic sinusitis, unspecified[ICD10: J32.9] Diagnosis: Allergic rhinitis due to pollen[ICD10: J30.1] María Elena APPIAH [facility] CPT-4: 92956 08/24/2016 ([id number]) OFFICE/OUTPATIENT VISIT EST Diagnosis: Acute bronchitis, unspecified[ICD10: J20.9] María Elena APPIAH DO [facility] CPT-4: 77175 08/16/2016 ([id number]) OFFICE/OUTPATIENT VISIT EST Diagnosis: Otitis media, unspecified, right ear[ICD10: H66.91] Diagnosis: Acute bronchitis, unspecified[ICD10: J20.9] María Elena APPIAH DO [facility] CPT-4: 51414 08/10/2016 ([id number]) OFFICE/OUTPATIENT VISIT EST Diagnosis: Acute recurrent sinusitis, unspecified[ICD10: J01.91] Diagnosis: Allergic rhinitis due to pollen[ICD10: J30.1] María Elena APPIAH DO [facility] CPT-4: 02850 08/02/2016 ([id number]) OFFICE/OUTPATIENT VISIT EST Diagnosis: Pain in unspecified joint[ICD10: M25.50] María Elena APPIAH DO [facility] CPT-4: 59134 07/27/2016 OFFICE/OUTPATIENT VISIT EST Diagnosis: 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] Diagnosis: Acute recurrent sinusitis, unspecified[ICD10: J01.91] Diagnosis: Other fatigue[ICD10: R53.83] Diagnosis: Primary insomnia[ICD10: F51.01] Diagnosis: Pain in unspecified joint[ICD10: M25.50] María Elena APPIAH DO [facility] CPT-4: 01943 07/20/2016 ([id number]) OFFICE/OUTPATIENT VISIT EST Diagnosis: Blister (nonthermal), left great toe, initial encounter[ICD10: S90.422A] Loan APPIAH DO [facility] CPT-4: 23112 ([id number]) OFFICE/OUTPATIENT VISIT EST Diagnosis: Acute recurrent sinusitis, unspecified[ICD10: J01.91] María Elena APPIAH DO [facility] CPT-4: 57677 05/25/2016 ([id number]) OFFICE/OUTPATIENT VISIT EST Diagnosis: Acute sinusitis, unspecified[ICD10: J01.90] María Elena APPIAH DO [facility] CPT-4: 46823 04/26/2016 ([id number]) OFFICE/OUTPATIENT VISIT EST Diagnosis: Flushing[ICD10: R23.2] Diagnosis: Primary insomnia[ICD10: F51.01] María Elena APPIAH DO [facility] CPT-4: 94422 03/02/2016 ([id number]) OFFICE/OUTPATIENT VISIT EST Diagnosis: Other seasonal allergic rhinitis[ICD10: J30.2] Loan APPIAH DO [facility] CPT-4: 15117 02/09/2016 ([id number]) OFFICE/OUTPATIENT VISIT EST Diagnosis: Primary insomnia[ICD10: F51.01] Diagnosis: Urinary tract infection, site not specified[ICD10: N39.0] María Elena [facility] CPT-4: 05756 01/24/2016 ([id number]) OFFICE/OUTPATIENT VISIT EST Diagnosis: Other specified disorders of Eustachian tube, bilateral[ICD10: H69.83] Diagnosis: Allergic rhinitis, unspecified[ICD10: J30.9] Loan [facility] CPT-4: 10054 12/23/2015 ([id number]) OFFICE/OUTPATIENT VISIT EST Diagnosis: Acute recurrent sinusitis, unspecified[ICD10: J01.91] Diagnosis: 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] Diagnosis: Allergic rhinitis, unspecified[ICD10: J30.9] María Elena [facility] CPT-4: 07267 12/08/2015 ([id number]) OFFICE/OUTPATIENT VISIT EST Diagnosis: Allergic rhinitis, unspecified[ICD10: J30.9] Diagnosis: Pain in unspecified joint[ICD10: M25.50] María Elena [facility] CPT-4: 26389 10/07/2015 ([id number]) OFFICE/OUTPATIENT VISIT EST Diagnosis: Essential (primary) hypertension[ICD10: I10] María Elena [facility] CPT-4: 98806 10/06/2015 OFFICE/OUTPATIENT VISIT EST Diagnosis: Localized enlarged lymph nodes[ICD10: R59.0] Diagnosis: Local infection of the skin and subcutaneous tissue, unspecified[ICD10: L08.9] June [facility] CPT- 4: 67225 09/14/2015 ([id number]) OFFICE/OUTPATIENT VISIT EST Diagnosis: Essential (primary) hypertension[ICD10: I10] Diagnosis: Actinic keratosis[ICD10: L57.0] María Elena [facility] CPT-4: 96639 09/07/2015 ([id number]) OFFICE/OUTPATIENT VISIT EST Diagnosis: Essential (primary) hypertension[ICD10: I10] Diagnosis: Acute stress reaction[ICD10: F43.0] María Elena APPIAH [facility] CPT-4: 84131 08/18/2015 ([id number]) OFFICE/OUTPATIENT VISIT EST Diagnosis: Essential (primary) hypertension[ICD10: I10] María Elena APPIAH [facility] CPT-4: 84962 07/07/2015 ([id number]) OFFICE/OUTPATIENT VISIT EST Diagnosis: Essential (primary) hypertension[ICD10: I10] María Elena [facility] CPT-4: 61254 06/24/2015 ([id number]) OFFICE/OUTPATIENT VISIT EST Diagnosis: Essential (primary) hypertension[ICD10: I10] María Elena [facility] CPT-4: 97081 06/21/2015 ([id number]) OFFICE/OUTPATIENT VISIT EST Diagnosis: Essential (primary) hypertension[ICD10: I10] Diagnosis: Mixed hyperlipidemia[ICD10: E78.2] Diagnosis: Acute stress reaction[ICD10: F43.0] Diagnosis: Primary insomnia[ICD10: F51.01] María Elena [facility] CPT-4: 55884 06/16/2015 ([id number]) OFFICE/OUTPATIENT VISIT EST Diagnosis: INSOMNIA NOS[ICD9: 780.52] Diagnosis: HYPERTENSION[ICD9: 401.9] Diagnosis: Stress reaction[ICD9: 308.9] María Elena [facility] CPT-4: 36002 06/02/2015 ([id number]) OFFICE/OUTPATIENT VISIT EST Diagnosis: HYPERTENSION[ICD9: 401.9] Diagnosis: Stress reaction[ICD9: 308.9] María Elena [facility] CPT-4: 49357 05/20/2015 ([id number]) OFFICE/OUTPATIENT VISIT EST Diagnosis: Skin lesion[ICD9: 709.9] 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 CPT-4: 69651 03/16/2015 OFFICE/OUTPATIENT VISIT EST Diagnosis: Otitis media[ICD9: 382.9] Diagnosis: SINUSITIS, ACUTE[ICD9: 461.9] June Sandra MARÍA ELENA [facility] CPT-4: 90829 09/11/2014 ([id number]) OFFICE/OUTPATIENT VISIT EST Diagnosis: HYPERLIPIDEMIA NEC/NOS[ICD9: 272.4] María Elena [facility] CPT-4: 04067 08/31/2014 ([id number]) OFFICE/OUTPATIENT VISIT EST Diagnosis: - I - HYPERTENSION[ICD9: 401.9] Diagnosis: HYPERLIPIDEMIA NEC/NOS[ICD9: 272.4] María Elena [facility] CPT-4: 02752 08/27/2014 ([id number]) OFFICE/OUTPATIENT VISIT EST Diagnosis: ABDOMINAL PAIN[ICD9: 789.00] Diagnosis: DYSPEPSIA[ICD9: 536.8] Diagnosis: Thoracic back pain[ICD9: 724.1] María Elena [facility] CPT-4: 56520 07/21/2014 ([id number]) OFFICE/OUTPATIENT VISIT EST Diagnosis: ALLERGIC RHINITIS[ICD9: 477.9] María Elena [facility] CPT-4: 88357 07/15/2014 ([id number]) OFFICE/OUTPATIENT VISIT EST Diagnosis: EDEMA[ICD9: 782.3] Diagnosis: Chronic insomnia[ICD9: 780.52] María Elena APPIAH [facility] CPT-4: 15099 05/18/2014 ([id number]) OFFICE/OUTPATIENT VISIT EST Diagnosis: Thyromegaly[ICD9: 240.9] Diagnosis: - I - HYPERTENSION[ICD9: 401.9] Diagnosis: ROUTINE MEDICAL EXAM[ICD9: V70.0] Diagnosis: EDEMA[ICD9: 782.3] María Elena APPIAH [facility] CPT-4: 29764 05/14/2014 OFFICE/OUTPATIENT VISIT EST Diagnosis: BRONCHITIS, ACUTE[ICD9: 466.0] Diagnosis: SINUSITIS, ACUTE[ICD9: 461.9] María Elena APPIAH [facility] CPT-4: 47073 04/21/2014 OFFICE/OUTPATIENT VISIT EST Diagnosis: SINUSITIS, ACUTE[ICD9: 461.9] June Flores MARÍA ELENA APPIAH [facility] CPT-4: 40328 03/04/2014 ([id number]) OFFICE/OUTPATIENT VISIT EST Diagnosis: VACCINE FOR TDAP[ICD10: Z23] María Elena APPIAH [facility] CPT-4: 60265 02/27/2014 ([id number]) OFFICE/OUTPATIENT VISIT EST Diagnosis: Seborrheic keratoses, inflamed[ICD9: 702.11] Diagnosis: ACTINIC KERATOSIS[ICD9: 702.0] Diagnosis: INSOMNIA NOS[ICD9: 780.52] María Elena PANDYA [facility] CPT-4: 65742 01/13/2014 OFFICE/OUTPATIENT VISIT EST 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] Diagnosis: ALLERGIC RHINITIS[ICD9: 477.9] Diagnosis: Serous otitis media[ICD9: 381.4] María Elena WAYNDER [facility] CPT-4: 84402 12/24/2013 ([id number]) OFFICE/OUTPATIENT VISIT EST Diagnosis: SINUSITIS, ACUTE[ICD9: 461.9] Diagnosis: ALLERGIC RHINITIS[ICD9: 477.9] 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] María Elena APPIAH [facility] CPT-4: 85508 11/12/2013 ([id number]) OFFICE/OUTPATIENT VISIT EST Diagnosis: ALLERGIC RHINITIS[ICD9: 477.9] Diagnosis: SINUSITIS, ACUTE[ICD9: 461.9] María Elena APPIAH [facility] CPT-4: 19446 10/21/2013 ([id number]) OFFICE/OUTPATIENT VISIT EST Diagnosis: ASYMPTOMATIC VARICOSE VEINS[ICD9: 454.9] Diagnosis: INSOMNIA NOS[ICD9: 780.52] María Elena [facility] CPT-4: 01102 09/22/2013 OFFICE/OUTPATIENT VISIT EST Diagnosis: SINUSITIS, ACUTE[ICD9: 461.9] June APPIAH 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 CPT-4: 73916 08/04/2013 ([id number]) OFFICE/OUTPATIENT VISIT EST Diagnosis: Cervicalgia[ICD9: 723.1] Diagnosis: SPASM OF MUSCLE[ICD9: 728.85] Diagnosis: CEPHALGIA, TENSION[ICD9: 307.81] María Elena APPIAH [facility] CPT-4: 05513 07/23/2013 ([id number]) OFFICE/OUTPATIENT VISIT EST 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] Diagnosis: ALLERGIC RHINITIS[ICD9: 477.9] María Elena APPIAH [facility] CPT-4: 75010 06/23/2013 ([id number]) OFFICE/OUTPATIENT VISIT EST Diagnosis: ALLERGIC RHINITIS[ICD9: 477.9] Diagnosis: ACUTE SEROUS OTITIS MEDIA[ICD9: 381.01] 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] María Elena Seamusdawn JUARES AlanJj TD [facility] CPT-4: 28672 05/26/2013 ([id number]) OFFICE/OUTPATIENT VISIT EST Diagnosis: HYPERTENSION[ICD9: 401.9] Diagnosis: EDEMA[ICD9: 782.3] Diagnosis: Serous otitis media[ICD9: 381.4] María Elena Seamusdawn JUARES AlanJj TD [facility] CPT-4: 38987 04/16/2013 ([id number]) OFFICE/OUTPATIENT VISIT EST Diagnosis: SINUSITIS, ACUTE[ICD9: 461.9] Diagnosis: ALLERGIC RHINITIS[ICD9: 477.9] Diagnosis: EDEMA[ICD9: 782.3] Diagnosis: Thyromegaly[ICD9: 240.9] Diagnosis: MALAISE AND FATIGUE[ICD9: 780.79] María Elena Lopez AlanJj [facility] CPT-4: 08079 03/05/2013 ([id number]) OFFICE/OUTPATIENT VISIT EST Diagnosis: PAIN, LOWER BACK[ICD9: 724.2] Diagnosis: SPASM OF MUSCLE[ICD9: 728.85] María Elena JUARES AlanJj [facility] CPT-4: 22118 12/23/2012 OFFICE/OUTPATIENT VISIT EST Diagnosis: Low back pain[ICD9: 724.2] Lashawn Hicks [facility] CPT-[facility]: 25270 12/16/2012 ([id number]) OFFICE/OUTPATIENT VISIT EST Diagnosis: PAIN, LOWER BACK[ICD9: 724.2] Diagnosis: SCIATICA[ICD9: 724.3] Diagnosis: Lumbar herniated disc[ICD9: 722.10] María Elena COLON AlanJj [facility] CPT-4: 38383 12/09/2012 ([id number]) OFFICE/OUTPATIENT VISIT EST Diagnosis: PAIN, LOWER BACK[ICD9: 724.2] Diagnosis: SCIATICA[ICD9: 724.3] Diagnosis: LUMBAR DISC DISPLACEMENT[ICD9: 722.10] María Elenamarcella MONTEROLui [facility] CPT-4: 92969 12/04/2012 OFFICE/OUTPATIENT VISIT EST Diagnosis: Pneumonia[ICD9: 486] Mary SerranoNomanJames [facility] CPT-4: 19271 11/22/2012 ([id number]) OFFICE/OUTPATIENT VISIT EST Diagnosis: PNEUMONIA, ORGANISM[ICD9: 486] Diagnosis: Exacerbation of RAD (reactive airway disease)[ICD9: 493.92] María Elena [facility] CPT-4: 43471 11/21/2012 OFFICE/OUTPATIENT VISIT EST Diagnosis: HYPERTENSION[ICD9: 401.9] Diagnosis: Cephalgia[ICD9: 784.0] Lashawn Eckert MARÍA ELENA APPIAH DO [facility] CPT-4: 20382 10/29/2012 ([id number]) OFFICE/OUTPATIENT VISIT EST Diagnosis: MALAISE AND FATIGUE[ICD9: 780.79] Diagnosis: ARTHRALGIA-MULTIPLE SITES[ICD9: 719.49] María Elena Waymindimaryjane [facility] CPT-4: 05819 10/14/2012 ([id number]) OFFICE/OUTPATIENT VISIT EST Diagnosis: URINARY FREQUENCY[ICD9: 788.41] María Elena [facility] CPT-4: 09319 09/27/2012 ([id number]) OFFICE/OUTPATIENT VISIT EST Diagnosis: MALAISE AND FATIGUE[ICD9: 780.79] Diagnosis: ARTHRALGIA-MULTIPLE SITES[ICD9: 719.49] María Elena Seamusdawn KYLAH [facility] CPT-4: 35705 09/25/2012 ([id number]) OFFICE/OUTPATIENT VISIT EST Diagnosis: SINUSITIS, ACUTE[ICD9: 461.9] 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] María Elena Marivelmaryjane MARÍA ELENA [facility] CPT-4: 82726 08/29/2012 OFFICE/OUTPATIENT VISIT EST Diagnosis: ACTINIC KERATOSIS[ICD9: 702.0] Diagnosis: Inflamed seborrheic keratosis[ICD9: 702.11] Diagnosis: Skin cancer of face[ICD9: 173.31] Diagnosis: HYPERTENSION[ICD9: 401.9] María Elena WAY NDER [facility] CPT-4: 23521 08/12/2012 ([id number]) OFFICE/OUTPATIENT VISIT EST Diagnosis: ARTHRALGIA-MULTIPLE SITES[ICD9: 719.49] Diagnosis: GOUT[ICD9: 274.9] Diagnosis: HYPERTENSION[ICD9: 401.9] Diagnosis: Tachycardia[ICD9: 785.0] María Elena HU KARLOS [facility] CPT-4: 57034 05/06/2012 ([id number]) OFFICE/OUTPATIENT VISIT EST Diagnosis: INSOMNIA NOS[ICD9: 780.52] María Elena PANDYA [facility] CPT-4: 75693 04/03/2012 ([id number]) OFFICE/OUTPATIENT VISIT EST Diagnosis: INSOMNIA NOS[ICD9: 780.52] Diagnosis: HYPERTENSION[ICD9: 401.9] Diagnosis: MIGRAINE NOS/NOT INTRCBL[ICD9: 346.90] María Elena [facility]IN SJj [facility] C[facility]: 11933 03/19/2012 ([id number]) OFFICE/OUTPATIENT VISIT EST Diagnosis: CELLULITIS[ICD9: 682.9] Diagnosis: Ankle pain[ICD9: 719.47] Diagnosis: HYPERTENSION[ICD9: 401.9] María Elena WAY NDER [facility] CPT-4: 39166 02/20/2012 ([id number]) OFFICE/OUTPATIENT VISIT EST Diagnosis: MIGRAINE NOS/NOT INTRCBL[ICD9: 346.90] Diagnosis: Vomiting[ICD9: 787.03] María Elena ValdesJj MARIVELE R [facility] CPT-4: 47084 01/30/2012 ([id number]) OFFICE/OUTPATIENT VISIT EST Diagnosis: EDEMA[ICD9: 782.3] Diagnosis: HYPERTENSION[ICD9: 401.9] Diagnosis: ALLERGIC RHINITIS[ICD9: 477.9] Diagnosis: ARTHRALGIA-MULTIPLE SITES[ICD9: 719.49] María Elena ValdesJj APPIAH [facility] CPT-4: 69424 01/24/2012 ([id number]) OFFICE/OUTPATIENT VISIT EST Diagnosis: SPASM OF MUSCLE[ICD9: 728.85] Diagnosis: Thoracic back pain[ICD9: 724.1] Diagnosis: Cervical pain[ICD9: 723.1] María Elena PANDYA [facility] CPT-4: 51107 01/10/2012 OFFICE/OUTPATIENT VISIT EST Diagnosis: PAIN, LOWER BACK[ICD9: 724.2] Diagnosis: LUMBAR DISC DISPLACEMENT[ICD9: 722.10] María Elena APPIAH [facility] CPT-4: 98471 12/11/2011 OFFICE/OUTPATIENT VISIT EST Diagnosis: MIGRAINE NOS/NOT INTRCBL[ICD9: 346.90] Diagnosis: SINUSITIS, ACUTE[ICD9: 461.9] María Elena APPIAH [facility] CPT-4: 13231 11/09/2011 OFFICE/OUTPATIENT VISIT EST Diagnosis: MIGRAINE NOS/NOT INTRCBL[ICD9: 346.90] Diagnosis: LYMPHADENOPATHY[ICD9: 785.6] María Elena APPIAH [facility] CPT-4: 27229 09/13/2011 OFFICE/OUTPATIENT VISIT EST Diagnosis: MALAISE AND FATIGUE[ICD9: 780.79] Diagnosis: ARTHRALGIA-MULTIPLE SITES[ICD9: 719.49] María Elena Waymindimaryjane BRAUNGAEL Fabiola APPIAH [facility] CPT-4: 95546 08/31/2011 OFFICE/OUTPATIENT VISIT EST Diagnosis: SINUSITIS, ACUTE[ICD9: 461.9] María Elena APPIAH [facility] CPT-4: 74040 07/20/2011 OFFICE/OUTPATIENT VISIT EST Diagnosis: HYPERTENSION[ICD9: 401.9] Diagnosis: PAIN, LOWER BACK[ICD9: 724.2] Diagnosis: SPASM OF MUSCLE[ICD9: 728.85] María Elena APPIAH [facility] CPT-4: 89052 07/06/2011 OFFICE/OUTPATIENT VISIT EST Diagnosis: MIGRAINE NOS/NOT INTRCBL[ICD9: 346.90] Diagnosis: HYPERTENSION[ICD9: 401.9] María Elena [facility] CPT-4: 91357 05/22/2011 OFFICE/OUTPATIENT VISIT EST Diagnosis: SINUSITIS, ACUTE[ICD9: 461.9] Diagnosis: MIGRAINE NOS/NOT INTRCBL[ICD9: 346.90] Diagnosis: Dehydration[ICD9: 276.51] Diagnosis: Vomiting[ICD9: 787.03] María Elena [facility] CPT-4: 32997 05/09/2011 ([id number]) OFFICE/OUTPATIENT VISIT EST María Elena [facility] CPT-4: 73614 02/14/2011 ([id number]) OFFICE/OUTPATIENT VISIT EST María Elena [facility] CPT-4: 08259 02/03/2011 ([id number]) OFFICE/OUTPATIENT VISIT EST María Elena [facility] CPT-4: 59757 01/31/2011 ([id number]) OFFICE/OUTPATIENT VISIT EST María Elena [facility] CPT-4: 25295 01/25/2011 ([id number]) OFFICE/OUTPATIENT VISIT EST María Elena [facility] CPT-4: 85948 01/18/2011 ([id number]) OFFICE/OUTPATIENT VISIT EST María Elena [facility] CPT-4: 63557 11/29/2010 ([id number]) OFFICE/OUTPATIENT VISIT, EST María Elena [facility]ED [facility] CPT-4: 90948 10/10/2010 ([id number]) OFFICE/OUTPATIENT VISIT, EST María Elena MONTERO [facility] CPT-4: 95066 06/07/2010 ([id number]) OFFICE/OUTPATIENT VISIT, EST María Elenamarcella [facility] CPT-4: 75969 04/27/2010 ([id number]) OFFICE/OUTPATIENT VISIT, EST María Elena [facility] CPT-4: 74695 04/05/2010 ([id number]) OFFICE/OUTPATIENT VISIT, EST María Elena [facility] CPT-4: 14022 03/09/2010 ([id number]) OFFICE/OUTPATIENT VISIT, EST María Elena [facility] CPT-4: 17072 03/03/2010 ([id number]) OFFICE/OUTPATIENT VISIT, EST María Elena [facility] CPT-4: 98392 01/17/2010 ([id number]) PREV VISIT, EST, AGE 40-64 María Elena [facility] CPT-4: 40459 12/27/2009 Plan of Care Planned Activity Notes Codes Status Date Visit Diagnosis Plan: Type 2 diabetes mellitus with hy perglycemia Discussion: Januvia 100mg daily Glimepride 2mg po BID Accuchecks BID Call in 2 weeks with BS readings Get formulary book ICD-9 : 250.02 ICD-10 : E11.65 11/20/2019 Patient Education: glimepiride- [employer] Coupon [id number] Completed 11/20/2019 Patient Education: Januvia- [employer] Coupon [id number] Completed 11/20/2019 Visit Diagnosis Plan: Ingrowing nail [...] : E11.65 10/07/2019 Appointment: Kathleen Zuniga [address] [place], [place] [id number] OFFICE SURGERY 10/07/2019 Visit Diagnosis Plan: Hypertriglyceridemia [...] : E11.65 09/30/2019 Appointment: María Elena Appiahtel: [address] [place], [place] [phone] [place] CHECK UP 09/30/2019 Patient Education: Premarin- [employer] Coupon [id number] https://www.[employer]els[employer].com/samplemd/resources/getResource/61/44164o09-f086-2yaz-e7 Completed 09/30/2019 Appointment: María Elena Appiah WPtel: [address] [place], [place] [phone] [place] LAB 09/29/2019 Appointment: María Elena Appiah WPtel: [address] [place], [place] [phone] [place] Won't have the new insurance till [...] : W06.XXXS 05/28/2019 Appointment: María Elena Appiahtel: [address] [place], [place] [phone] [place] FOLLOW UP 05/28/2019 Appointment: María Elena Appiah WPtel: [address] [place], [place] [phone] [place] BP CHECK 05/19/2019 Visit Diagnosis Plan: [...] : Z79.890 01/22/2019 Appointment: María Elena Appiahtel: [address] [place], [place] [id number] [place] FOLLOW UP 01/22/2019 Patient Education: estradiol- [employer] Coupon [id number] https://www.[employer]/samplemd/resources/getResource/61/205u515h-4bg6-3y11-3z Completed 01/22/2019 Appointment: María Elena Appiahtel: [address] [place], [place] [id number] [place] CANCELED 01/20/2019 Appointment: María Elena Appiahl: [address] [place], [place] [phone] [place] LM NO SHOW 01/06/2019 Appointment: María Elena Appiah WPtel: [address] [place], [place] [phone] [place] CANCELED 10/17/2018 Appointment: María Elena Appiah WPtel: [address] [place] [address] [place] BP CHECK 10/09/2018 Visit Diagnosis Plan: [...] 09/30/2018 Appointment: María Elena Appiah WPtel: [address] [place] [address] [place] FOLLOW UP 09/30/2018 Visit Diagnosis Plan: [...] : F51.01 08/27/2018 Appointment: María Elena Appiahtel: [address] [place], [place] [phone] ACUTE ILLNESS 08/27/2018 Appointment: María Elena Appiah WPtel: [address] [place] [address] [place] Patient stated she went out to [...] Tyle... 08/09/2018 Appointment: María Elena Appiah WPtel: [address] [place] [address] ACUTE ILLNESS 08/09/2018 Appointment: María Elena Appiah WPtel: [address] [place] [address] NO SHOW 08/08/2018 Visit Diagnosis Plan: Anxiety [...] 07/22/2018 Appointment: María Elena Appiah WPtel: [address] [place] [address] ACUTE ILLNESS 07/22/2018 Appointment: María Elena Appiah WPtel: [address] [place] [address] [place] INJECTION 06/19/2018 Patient Education: Patient Medication [...] ICD-10 : L03.031 06/17/2018 Appointment: Kathleen Zuniga [address] [place] [address] ACUTE ILLNESS 06/17/2018 Patient Education: Patient Medication [...] ICD-10 : B02.9 05/16/2018 Appointment: Kathleen Zuniga [address] [place], [place] [address] ACUTE ILLNESS 05/16/2018 Patient Education: Patient Medication [...] ICD-10 : L03.115 03/20/2018 Appointment: Kathleen Zuniga [address] [place], [place] [address] FOLLOW UP 03/20/2018 Patient Education: Patient Medication [...] ICD-10 : L03.115 03/18/2018 Appointment: Kathleen Zuniga [address] [place] [address] FOLLOW UP 03/18/2018 Patient Education: Patient Medication [...] ICD-10 : L03.115 03/15/2018 Appointment: Kathleen Zuniga [address] [place], [place] [address] ACUTE ILLNESS 03/15/2018 Patient Education: Patient Medication [...] ICD-10 : J01.90 02/11/2018 Appointment: Kathleen Zuniga [address] [place], [place] [phone] ACUTE ILLNESS 02/11/2018 Patient Education: Patient Medication Summary Completed 02/11/2018 Appointment: María Elena Appiah WPtel: [phone] [phone] INJECTION 02/01/2018 Patient Education: Patient Medication Summary [...] ICD-10 : M51.16 01/30/2018 Appointment: Kathleen Zuniga [address] [place] [address] ACUTE ILLNESS 01/30/2018 Patient Education: Patient Medication [...] 12/18/2017 Appointment: María Elena Appiah WPtel: [phone] [facility] Annual Well Visit 12/18/2017 Patient Education: Patient Medication Summary Completed 12/18/2017 Care Plan: Referral Order SNOMED-CT : [id number] Pending 12/18/2017 Appointment: María Elena Appiah WPtel: [phone] [facility] [place] INJECTION 12/10/2017 [...] ICD-10 : L03.031 12/07/2017 Appointment: Kathleen Zuniga [address] [place] [address] ACUTE ILLNESS 12/07/2017 Patient Education: Patient Medication [...] ICD-10 : J01.00 10/08/2017 Appointment: Kathleen Zuniga [address] [place] [address] ACUTE ILLNESS 10/08/2017 Patient Education: Patient Medication Summary Completed 10/08/2017 Appointment: María Elena Appiah WPtel: [phone] [facility] [place] INJECTION 09/21/2017 Patient Education: Patient [...] ICD-10 : R06.83 09/20/2017 Appointment: Kathleen Zuniga [address] [place], [place] [id number] ACUTE ILLNESS 09/20/2017 Patient Education: Patient [...] ICD-10 : L60.0 08/29/2017 Appointment: Kathleen Zuniga [address] [place] [address] OFFICE SURGERY 08/29/2017 Patient Education: Patient Medication Summary Completed 08/29/2017 Visit Diagnosis Plan: Actinic keratosis Discussion: Cr yotherapy as above ICD-9 : 702.0 ICD-10 : L57.0 08/01/2017 Appointment: María Elena Appiah WPtel: [address] [place] [address] OFFICE SURGERY 08/01/2017 Patient Education: Patient Medication Summary Completed 08/01/2017 Appointment: María Elena Appiah WPtel: [address] [place] [address] PATIENT THOUGHT APPOINTMENT WAS TOMORROW 07/26/17 CALLED 15 MINUTES BEFORE APPT TO SAY SHE DIDN'T HAVE ANYONE TO COVER HER BUSINESS AND WOULD NOT MAKE IT NO SHOW 07/25/2017 Visit Diagnosis Plan: Cellulitis of left toe Discussio n: Clindamycin and notify if worsening or persistis ICD-9 : 681.10 ICD-10 : L03.032 07/19/2017 Appointment: María Elena Appiah WPtel: [address] [place], [place] [address] MEDICATION REVIEW 07/19/2017 Patient Education: Patient Medication Summary Completed 07/19/2017 Appointment: María Elena Appiah WPtel: [address] [place], [place] [address] CANCELED 07/04/2017 Visit Diagnosis Plan: Generalized hyperhidrosis Discus ian: CBC, CMP, TSH, free T4 ordered to assess. will review labs. ICD-9 : 780.8 ICD-10 : R61 06/27/2017 Visit Diagnosis Plan: Chronic sinusitis, unspecified D iscussion: Referral sent to dr. albarado in [place] per patient request. patient has been treated multiple times for sinus infections with no recovery. patient was seen by dr sanchez in the past with no interventions. patient has deviated septum which may be affecting her sinuses. 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, including hip Discussion: Shave removal of above lesio n--sent to pathology ICD-9 : 216.7 ICD-10 : D23.72 01/24/2017 Appointment: María Elena Appiah WPtel: [address] [place], [place] [id number] 01/23 confirmed ~sl OFFICE SURGERY 01/24/2017 Patient Education: Patient Medication Summary Completed 01/24/2017 Appointment: Loan Sánchez [address] [place], [place] [id number] 01/09 rescheduled~sl RESCHEDULED 01/15/2017 Visit Diagnosis [...] 12/13/2016 App[facility]ment: [facility] [phone] [facility] [place] 12/12 confirmed ~ MEDICATION REVIEW 12/13/2016 Patient Education: Patient Medication Summary Completed 12/13/2016 Appointment: María Elena Appiah [facility] [phone] [facility] [place] rescheduled for 12/13/16 at 11am RESCHEDULED 0 12/06/2016 Appointment: María Elena Appiah [facility] [phone] [facility] [place] CANCELED 11/23/2016 Patient Education: [...] 11/01/2016 Appointment: María Elena Appiah [facility] [phone] [facility] [place] 10/31 lm `sl 11/01 lm`sl MEDICATION REVIEW 017 Patient Education: Patient Medication Summary Completed 11/01/2016 Referral: Canelo Overton WPtel: [address] [id number] [place] Referral Initiated 10/30/2016 Visit Diagnosis Plan: [...] Z01.419 10/17/2016 Appointment: María Elena Appiah WPtel: [address] [place], [place] [phone] 10/16 confirmed ~sl PAP 10/17/2016 Patient Education: Patient Medication Summary Completed 10/17/2016 Care Plan: MAMMOGRAM SCREENING LOINC : 2 6347-5 Pending 10/17/2016 Visit Diagnosis Plan: Other seasonal allergic rhinitis Discussion: Decadron/Garamycin Nasal [place] Mix Too soon for steroid Retry zyrtec 10mg daily ICD-9 : 477.9 ICD-10 : J30.2 10/10/2016 Appointment: María Elena Appiah WPtel: [address] [place], [place] [phone] [place] FOLLOW UP 10/10/2016 Patient Education: Patient Medication Summary Completed 10/10/2016 Appointment: María Elena Appiah WPtel: [address] [place], [place] [phone] 10/02 reschedule `sl RESCHEDULED 10/02/2016 Visit Plan: See surgery for removal of n ew left arm lesion and right foot lesion Lyrica to use next month for left arm paresthesias Continue current meds Discussed sunscreen/sunblock combo 09/19/2016 Appointment: María Elena Appiah WPtel: [address] [place], [place] [phone] 09/18 confirmed ~sl FOLLOW UP 09/19/2016 Patient Education: Patient Medication Summary Completed 09/19/2016 Patient Education: Patient Medication Summary Completed 09/18/2016 Care Plan: MAMMOGRAM BOTH BREASTS LOINC : 22592-6 Pending 09/18/2016 Visit Plan: Discussed that needs [...] sinuses 08/24/2016 Appointment: María Elena Appiah WPtel: [address] [place] [address] ACUTE ILLNESS 08/24/2016 Patient Education: Patient Medication Summary Completed 08/24/2016 Patient Education: Patient Medication Summary Completed 08/23/2016 Care Plan: MAMMOGRAM SCREENING LOINC : 2 6347-5 Pending 08/23/2016 Visit Plan: Finish doxycycline Add Breo 100/25 1 p BID for 2 weeks If not improving within next 2 days will get CXR 08/16/2016 Appointment: María Elena Appiah WPtel: [address] [place] [address] ACUTE ILLNESS 08/16/2016 Patient Education: Patient Medication Summary Completed 08/16/2016 Visit Plan: Supportive care. Rest, Fluid s, Tylenol/Motrin prn fever or bodyaches. Notify if worsening symptoms. Doxycyline and Prednisone 08/10/2016 Appointment: María Elena Appiah WPtel: [address] [place] [address] 08/09 lm`sl....confirmed-sp FOLLOW UP 09/2015 Patient Education: Patient Medication Summary Completed 08/10/2016 Visit Plan: Saline nasal flushes prn. Ty lenol/Motrin prn headache. Notify if persists/symptoms worsening. Dexamethasone 8mg IM today May use coricedan and mucinex 08/02/2016 Appointment: María Elena Appiah WPtel: [address] [place] [address] ACUTE ILLNESS 08/02/2016 Patient Education: Patient Medication Summary Completed 08/02/2016 Visit Plan: Cryotherapy as above and lef t forearm lesion removal as above with 5-0 punch biopsy and sent to path Return in 10 days for suture removal 08/01/2016 Appointment: María Elena Appiah WPtel: [address] [place], [place] [phone] 07/31 confirmed`~sl OFFICE SURGERY 08/01/2016 Patient Education: Patient Medication Summary Completed 08/01/2016 Visit Plan: Stop clindamycin Check CBC, CMP, ESR now/STAT 07/27/2016 Appointment: María Elena Appiah WPtel: [address] [place], [place] [id number] ACUTE ILLNESS 07/27/2016 Patient Education: Patient Medication Summary Completed 07/27/2016 Visit Plan: Update lab and check ABIs to start with Will likely need cardiology evaluation to rule out PVD Clindamycin for 10 days Daily yogurt or probiotic Will return for removal of left arm lesions 07/20/2016 Appointment: María Elena Appiah WPtel: [address] [place], [place] [phone] ACUTE ILLNESS 07/20/2016 Patient Education: Patient Medication Summary Completed 07/20/2016 Patient Education: Patient Medication Summary Completed 07/20/2016 Care Plan: MAMMOGRAM BOTH BREASTS LOINC : 01024-0 Pending 07/20/2016 Care Plan: US EXAM CHEST LOINC : 73035-5 Pending 07/20/2016 Visit Plan: Wound culture collected from left great toe Appearance is somewhat staph like Rx as above Wound cleanser and skin care reviewed May need to add oral antibiotic if sores do not heal or continue to reoccur 07/06/2016 Appointment: Loan Sánchez [address] [place], [place] [id number] ACUTE ILLNESS 07/06/2016 Patient Education: Patient Medication Summary Completed 07/06/2016 Appointment: María Elena Appiah WPtel: [address] [place], [place] [phone] [place] INJECTION 05/25/2016 Patient Education: Patient Medication Summary Completed 05/25/2016 Visit Plan: Saline nasal flushes prn. Ty lenol/Motrin prn headache. Notify if persists/symptoms worsening. Dexamethasone and Rocephin given 04/26/2016 Appointment: María Elena Appiah WPtel: [address] [place] [address] ACUTE ILLNESS 04/26/2016 Patient Education: Patient Medication Summary Completed 04/26/2016 Visit Plan: Check CBC, CMP, TSH, FreeT4, HbA1C, estradiol, lipids in AM 03/02/2016 Appointment: María Elena Appiah WPtel: [address] [place] [address] 03/01 lm~sl ACUTE ILLNESS 03/02/2016 Patient Education: Patient Medication Summary Completed 03/02/2016 Visit Plan: Exam is nearly normal Needs to be taking daily antihistamine Would prefer to use oral steroids instead of shot but patient insist that oral steroids cause horrible headaches for her Will given kenalog IM instead 02/09/2016 Appointment: Loan Sánchez [address] [place] [address] ACUTE ILLNESS 02/09/2016 Patient Education: Patient Medication Summary Completed 02/09/2016 Visit Plan: Culture urine Macrobid DC xa nax Trial of Ativan 1mg q HS 01/24/2016 Appointment: María Elena Appiah WPtel: [address] [place] [address] ACUTE ILLNESS 01/24/2016 Patient Education: Patient Medication Summary Completed 01/24/2016 Visit Plan: No steroid or rocephin injec tion warranted Can have oral prednisone Continue current home regimen Needs to follow up with Dr Sanchez if problems persist 12/23/2015 Appointment: Loan Sánchez [address] [place] [address] ACUTE ILLNESS 12/23/2015 Patient Education: Patient Medication Summary Completed 12/23/2015 Visit Plan: Saline nasal flushes prn. Ty lenol/Motrin prn headache. Notify if persists/symptoms worsening. Kenalog 40mg IM today 12/08/2015 Appointment: María Elena Appiah WPtel: [address] [place] [address] 12/06 confirmed~sl ACUTE ILLNESS 12/08/2015 Patient Education: Patient Medication Summary Completed 12/08/2015 Appointment: María Elena Appiah WPtel: [address] [place] [address] ACUTE ILLNESS 11/18/2015 Patient Education: Patient Medication Summary Completed 10/11/2015 Appointment: María Elena Appiah WPtel: [address] [place], [place] [phone] [place] INJECTION 10/07/2015 Patient Education: Patient Medication Summary Completed 10/07/2015 Visit Plan: Check renal arterial doppler s and ECHO Change amlodopine to lotrel 5/20mg q HS Will need stress test as well Check CMP, uric acid, ESR 10/06/2015 Appointment: María Elena Appiah WPtel: [address] [place] [address] ACUTE ILLNESS 10/06/2015 Patient Education: Patient Medication Summary Completed 10/06/2015 Patient Education: [facility] - Saving [employer] - Amlodipine Besylate - 18-64 - Dynamic Portal ID Completed 10/06/2015 Appointment: María Elena Appiah WPtel: [address] [place] [address] FOLLOW UP 09/22/2015 Visit Plan: Cephalexin 500 mg PO bid Mery ly topical Mupirocin to lesions on left lateral neck and face Follow-up in one week. Sooner if symptoms worsen 09/14/2015 Appointment: June Flores WPtel: [address] [place], [place] [phone] ACUTE ILLNESS 09/14/2015 Patient Education: Patient Medication Summary Completed 09/14/2015 Visit Plan: Change bystolic to bedtime d osing and amlodopine to morning dosing Cryotherapy as above to AKs 09/07/2015 Appointment: María Elena Appiah WPtel: [address] [place], [place] [phone] 09/06 appointment made and confirmed ~sl FOLLOW UP 09/07/2015 Patient Education: Patient Medication Summary Completed 09/07/2015 Visit Plan: Increase bystolic back to 20 mg daily but will split and take 10mg in AM and 10mg in PM Stress Reducers 08/18/2015 Appointment: María Elena Appiahtel: [address] [place], [place] [phone] 08/17/15 appt confirmed cn ACUTE ILLNESS 08/18 Patient Education: Patient Medication Summary Completed 08/18/2015 Appointment: María Elena Appiah WPtel: [address] [place] [address] BP CHECK 07/07/2015 Patient Education: Patient Medication Summary Completed 07/07/2015 Appointment: María Elena Appiah WPtel: [address] [place] [address] BP CHECK 06/24/2015 Patient Education: Patient Medication Summary Completed 06/24/2015 Appointment: María Elena Appiah WPtel: [address] [place] [address] BP CHECK 06/21/2015 Patient Education: Patient Medication Summary Completed 06/21/2015 Visit Plan: Lab discussed Continue suhail nt meds and lifestyle modification Recheck lab in 6mos 06/16/2015 Appointment: María Elena Appiah WPtel: [address] [place] [address] 06/15 confirmed FOLLOW UP 06/16/2015 Patient Education: Patient Medication Summary Completed 06/16/2015 Patient Education: Patient Medication Summary Completed 06/15/2015 Visit Plan: Increase cymbalta to 60mg q HS Keep clonidine at current dose Recheck 2weeks Change xanax to klonopin 06/02/2015 Appointment: María Elena Appiahtel: [address] [place] [address] 06/02 lm FOLLOW UP 06/02/2015 Patient Education: Patient Medication Summary Completed 06/02/2015 Appointment: María Elena Appiah WPtel: [address] [place] [address] ACUTE ILLNESS 05/24/2015 Visit Plan: Increase clonidine to 0.2mg q HS Add cymbalta 30mg q HS Recheck 2weeks Stress Reducers Check fasting lab Discussed sleep study 05/20/2015 Appointment: María Elena Appiah WPtel: [address] [place] [address] ACUTE ILLNESS 05/20/2015 Patient Education: Patient Medication Summary Completed 05/20/2015 Patient Education: [facility] - Saving [employer] - Cymbalta - 18-64 - Dynamic Portal ID Completed 05/20/2015 Appointment: María Elena Appiah WPtel: [address] [place] [address] BP CHECK 05/19/2015 Patient Education: Patient Medication Summary Completed 05/19/2015 Visit Plan: Topical Bactroban alternatin g with topical betamethasone Recheck 2weeks 05/10/2015 Appointment: María Elena Appiah WPtel: [address] [place] [address] 05/07 vm cn...05/07 appt confirmed OFFICE SURGER Y 05/10/2015 Patient Education: Patient Medication Summary Completed 05/10/2015 Referral: Patrick Chandler WPtel: [address] [facility] [address] Referral Initiated 05/04/2015 Visit Plan: Saline nasal flushes prn. Ty lenol/Motrin prn headache. Notify if persists/symptoms worsening. Depomedrol 40mg IM today 03/16/2015 Appointment: María Elena Appiah WPtel: [address] [place] [address] ACUTE ILLNESS 03/16/2015 Patient Education: Patient Medication Summary Completed 03/16/2015 Appointment: María Elena Appiah WPtel: [address] [place] [address] ER Follow UP 03/09/2015 Visit Plan: Cryotherapy to lesions as ab ove 10/27/2014 Appointment: María Elena Appiah WPtel: [address] [place] [address] OFFICE SURGERY 10/27/2014 Patient Education: Patient Medication Summary Completed 10/27/2014 Appointment: June Flores WPtel: [address] [place] [address] ACUTE ILLNESS 09/11/2014 Patient Education: Patient Medication Summary Completed 09/11/2014 Visit Plan: Lab discussed Lipitor 10mg d aily Coenzyme Q-10 400mg daily Vitamin D3 5000u daily Recheck lipids with LFTs in 3mos then fwup 08/31/2014 Appointment: María Elena Appiah WPtel: [address] [place] [address] 08/28 voicemail FOLLOW UP 08/31/2014 Patient Education: Patient Medication Summary Completed 08/31/2014 Appointment: María Elena Appiah WPtel: [address] [place] [address] [place] LAB 08/27/2014 Appointment: María Elena Appiah WPtel: [address] [place] [address] US LAB 08/27/2014 Patient Education: Patient Medication Summary Completed 08/27/2014 Appointment: María Elena Appiah WPtel: [address] [place] [address] ACUTE ILLNESS 07/23/2014 Appointment: María Elena Appiah WPtel: [address] [place] [address] ACUTE ILLNESS 07/21/2014 Patient Education: Patient Medication Summary Completed 07/21/2014 Visit Plan: Kenalog 40mg IM today Contin ue narendra and singulair Add Flonase 07/15/2014 Appointment: María Elena Appiah WPtel: [address] [place] [address] ACUTE ILLNESS 07/15/2014 Appointment: María Elena Appiah WPtel: [address] [place], [place] [phone] ACUTE ILLNESS 07/15/2014 Patient Education: Patient Medication Summary Completed 07/15/2014 Visit Plan: Will do metolazone 2.5mg prn with 6 potassium and see if causes as severe cramping Trial of of seroquel XR 50mg q PM with evening meal and let us know how works 05/18/2014 Appointment: María Elena Appiah WPtel: [address] [place], [place] [phone] 05/15 left message FOLLOW UP 05/18/2014 Patient Education: Patient Medication Summary Completed 05/18/2014 Appointment: María Elena Appiah WPtel: [address] [place], [place] [phone] [place] LAB 05/14/2014 Patient Education: Patient Medication Summary Completed 05/14/2014 Appointment: María Elena Appiah WPtel: [address] [place], [place] [phone] [place] INJECTION 04/22/2014 Visit Plan: Tisha and Miranda today a nd finish abx given from urgent care 04/21/2014 Appointment: María Elena Appiah WPtel: [address] [place], [place] [phone] [place] INJECTION 04/21/2014 Patient Education: Patient Medication Summary Completed 04/21/2014 Appointment: June Flores WPtel: [address] [place], [place] [phone] ACUTE ILLNESS 03/04/2014 Patient Education: Patient Medication Summary Completed 03/04/2014 Appointment: María Elena Appiah WPtel: [address] [place], [place] [phone] [place] INJECTION 02/27/2014 Patient Education: Patient Medication Summary Completed 02/27/2014 Visit Plan: Cryotherapy as above to all lesions Patient wants to try no meds for insomnia for a while and see how goes 01/13/2014 Appointment: María Elena Appiahtel: [address] [place] [address] OFFICE SURGERY 01/13/2014 Patient Education: Patient Medication Summary Completed 01/13/2014 Visit Plan: Stop Melatonin Stop Soma Tri al of trazadone 75mg q HS See ENT for possible tubes as has had chronic ETD and serous otitis media with numerous steroids 12/24/2013 Appointment: María Elena Appiah WPtel: [address] [place] [address] ACUTE ILLNESS 12/24/2013 Patient Education: Patient Medication Summary Completed 12/24/2013 Visit Plan: Saline nasal flushes prn. Ty lenol/Motrin prn headache. Notify if persists/symptoms worsening. 11/12/2013 Appointment: María Elena Appiah WPtel: [address] [place] [address] ACUTE ILLNESS 11/12/2013 Patient Education: Patient Medication Summary Completed 11/12/2013 Appointment: María Elena Appiah WPtel: [address] [place] [address] ACUTE ILLNESS 10/21/2013 Patient Education: Patient Medication Summary Completed 10/21/2013 Visit Plan: Sleep hygiene and sleep rout ine Melatonin 10mg q HS Support stockings and observe 09/22/2013 Appointment: María Elena Appiah WPtel: [address] [place] [address] ACUTE ILLNESS 09/22/2013 Patient Education: Patient Medication Summary Completed 09/22/2013 Appointment: June Flores WPtel: [address] [place] [address] ACUTE ILLNESS 08/27/2013 Patient Education: Patient Medication Summary Completed 08/27/2013 Visit Plan: Proceed with CT scan of head /neck Proceed with occipital nerve injections Butrans 20mcg patch weekly until can get into see Dr. Mcdonough for injections 08/04/2013 Appointment: María Elena Appiah WPtel: [address] [place] [address] FOLLOW UP 08/04/2013 Patient Education: Patient Medication Summary Completed 08/04/2013 Visit Plan: OMT done Daily neck stretche s, moist heat Increase Celebrex to 200mg BID Add flexeril 07/23/2013 Appointment: María Elena Appiah WPtel: [address] [place] [address] 07/22 voicemail FOLLOW UP 07/23/2013 Patient Education: Patient Medication Summary Completed 07/23/2013 Appointment: María Elena Appiah WPtel: [address] [place] [address] ACUTE ILLNESS 06/23/2013 Patient Education: Patient Medication Summary Completed 06/23/2013 Appointment: María Elena Appiah WPtel: [address] [place] [address] ACUTE ILLNESS 05/26/2013 Patient Education: Patient Medication Summary Completed 05/26/2013 Visit Plan: Decrease clonidine to 0.1mg TID If BP remains stable consider decreasing amlodopine Prednisone for 5 days BP check in 1mo 04/16/2013 Appointment: María Elena Appiah WPtel: [address] [place] [address] 04/14 pt called and confirmed appt FOLLOW UP 04/16/2013 Patient Education: Patient Medication Summary Completed 04/16/2013 Appointment: María Elena Appiah WPtel: [address] [place] [address] ACUTE ILLNESS 03/05/2013 Patient Education: Patient Medication Summary Completed 03/05/2013 Visit Plan: Pt has MARIA ELENA on with Dr. Sharonda Matthews patch Refill Hydrocodone early tomorrow 12/23/2012 Appointment: María Elena Appiah WPtel: [address] [place] [address] FOLLOW UP 12/23/2012 Patient Education: Patient Medication Summary Completed 12/23/2012 Appointment: Lashawn Eckert WPtel: [address] [place] [address] ACUTE ILLNESS 12/16/2012 Patient Education: Patient Medication Summary Completed 12/16/2012 Visit Plan: Proceed with updated MRI of LS spine Continue gabapentin and add soma and diclofenac Will likely need to go for another epidural 12/09/2012 Appointment: María Elena Appiah WPtel: [address] [place] [address] ACUTE ILLNESS 12/09/2012 Patient Education: Patient Medication Summary Completed 12/09/2012 Visit Plan: Injection as above Finish me drol dose pack Chiropracter this afternoon 12/04/2012 Appointment: María Elena Appiah WPtel: [address] [place] [address] ACUTE ILLNESS 12/04/2012 Patient Education: Patient Medication Summary Completed 12/04/2012 Appointment: Mary Tillman WPtel: [address] [place] [address] FOLLOW UP 11/22/2012 Patient Education: Patient Medication Summary Completed 11/22/2012 Appointment: María Elena Appiah WPtel: [address] [place] [address] ACUTE ILLNESS 11/21/2012 Patient Education: Patient Medication Summary Completed 11/21/2012 Appointment: María Elena Appiah WPtel: [address] [place] [address] BP CHECK 11/07/2012 Patient Education: Patient Medication Summary Completed 11/07/2012 Visit Plan: reports extra clonidine and extra amlodipine and extra alprazalam. extra Ketolorac and promethazine last night. Bystolic 10 mg QAM and will continue all other blood pressure meds. Pt. encouraged to rest and hydrate. Discussed stroke and DC symptoms. Pt. instructed to seek ER eval if symptoms worsen or headache persists. Pt. agrees to ER eval/EMS transport if symptoms worsen. BP re-check. 10/29/2012 Appointment: Lashawn Eckert WPtel: [address] [place], [place] [phone] [place] ACUTE ILLNESS 10/29/2012 Patient Education: Patient Medication Summary Completed 10/29/2012 Appointment: María Elena Appiah WPtel: [address] [place] [address] ACUTE ILLNESS 10/14/2012 Patient Education: Patient Medication Summary Completed 10/14/2012 Appointment: María Elena Appiah WPtel: [address] [place] [address] UA 09/27/2012 Patient Education: Patient Medication Summary Completed 09/27/2012 Appointment: María Elena Appiah WPtel: [address] [place] [address] ACUTE ILLNESS 09/25/2012 Patient Education: Patient Medication Summary Completed 09/25/2012 Appointment: María Elena Appiah WPtel: [address] [place] [address] BP CHECK 09/24/2012 Appointment: María Elena Appiah WPtel: [address] [place] [address] ACUTE ILLNESS 08/29/2012 Patient Education: Patient Medication Summary Completed 08/29/2012 Visit Plan: Cryotherapy as above See Karlos m for right ear lesion--probable MOHs procedure Increase amlodopine to 10mg daily 08/12/2012 Appointment: María Elena Appiah WPtel: [address] [place] [address] OFFICE SURGERY 08/12/2012 Patient Education: Patient Medication Summary Completed 08/12/2012 Appointment: María Elena Appiah WPtel: [address] [place] [address] 05/03 vm on pt phone...pt called on 04/11 3 pt called wanting in had no one cancel so could not get her in for an appt sooner than 05/06. ACUTE ILLNESS 05/06/2012 Patient Education: Patient Medication Summary Completed 05/06/2012 Visit Plan: Pt wants to hold on any furt her sleep medications 04/03/2012 Appointment: María Elena Appiah WPtel: [address] [place] [address] FOLLOW UP 04/03/2012 Patient Education: Patient Medication Summary Completed 04/03/2012 Appointment: María Elena Appiah WPtel: [address] [place] [address] FOLLOW UP 03/19/2012 Patient Education: Patient Medication Summary Completed 03/19/2012 Appointment: María Elena Appiah WPtel: [address] [place] [address] BP CHECK 02/22/2012 Patient Education: Patient Medication Summary Completed 02/22/2012 Appointment: María Elena Appiah WPtel: [address] [place] [address] BP CHECK 02/21/2012 Patient Education: Patient Medication Summary Completed 02/21/2012 Visit Plan: Doxycycline and bactroban fo r foot Supportive care on ankles and knees Add norvasc for BP 02/20/2012 Appointment: María Elena Appiah WPtel: [address] [place] [address] ER Follow UP 02/20/2012 Patient Education: Patient Medication Summary Completed 02/20/2012 Appointment: María Elena Appiah WPtel: [address] [place] [address] ACUTE ILLNESS 01/30/2012 Patient Education: Patient Medication Summary Completed 01/30/2012 Appointment: María Elena Appiah WPtel: [address] [place] [address] ACUTE ILLNESS 01/24/2012 Patient Education: Patient Medication Summary Completed 01/24/2012 Visit Plan: Daily back stretches, moist heat, Biofreeze prn OMT done 01/10/2012 Appointment: María Elena Appiah WPtel: [address] [place] [address] ACUTE ILLNESS 01/10/2012 Patient Education: Patient Medication Summary Completed 01/10/2012 Appointment: María Elena Appiahtel: [address] [place] [address] FOLLOW UP 12/11/2011 Patient Education: Patient Medication Summary Completed 12/11/2011 Appointment: María Elena Appiahtel: [address] [place] [address] ACUTE ILLNESS 11/09/2011 Patient Education: Patient Medication Summary Completed 11/09/2011 Appointment: María Elena Appiahtel: [address] [place] [address] ACUTE ILLNESS 09/13/2011 Patient Education: Patient Medication Summary Completed 09/13/2011 Visit Plan: Check CBC, TSH, Free T4, CMP , ESR, Vit D, B12 now Start Prednisone today 08/31/2011 Appointment: María Elena Appiahtel: [address] [place] [address] ACUTE ILLNESS 08/31/2011 Patient Education: Patient Medication Summary Completed 08/31/2011 Appointment: María Elena Appiahtel: [address] [place] [address] [place] INJECTION 07/20/2011 Patient Education: Patient Medication Summary Completed 07/20/2011 Visit Plan: Continue current meds Monite r BP Cont stretches from PT 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 07/06/2011 Appointment: María Elena Appiahtel: [address] [place] [address] FOLLOW UP 07/06/2011 Patient Education: Patient Medication Summary Completed 07/06/2011 Appointment: María Elena Appiahtel: [address] [place] [address] [place] BP CHECK 06/06/2011 Patient Education: Patient Medication Summary Completed 06/06/2011 Visit Plan: Add Bystolic at 2.5mg QAM Ad d Robaxin 750mg 2 po q HS BP check in 2wks 05/22/2011 Appointment: María Elena Appiah WPtel: [address] [place] [address] FOLLOW UP 05/22/2011 Patient Education: Patient Medication Summary Completed 05/22/2011 Appointment: María Elena Appiah WPtel: [address] [place] [address] ER Follow UP 05/09/2011 Patient Education: Patient Medication Summary Completed 05/09/2011 Appointment: María Elena Appiah WPtel: [address] [place] [address] FOLLOW UP 02/22/2011 Visit Plan: Rx written for Hydrocodone 1 0/325mg #240 See Ortho 02/14/2011 Appointment: María Elena Appiah WPtel: [facility] [address] OMT 02/14/2011 Patient Education: Patient Medication [...] work. 02/03/2011 Appointment: Lashawn Eckert WPtel: [phone] [id number] ACUTE ILLNESS 02/03/2011 Patient Education: Patient Medication Summary Completed 02/03/2011 Visit Plan: OMT done Cont daily stretche s 01/31/2011 Appointment: María Elena Appiah WPtel: [address] [place] [address] ACUTE ILLNESS 01/31/2011 Patient Education: Patient Medication Summary Completed 01/31/2011 Visit Plan: Continue pain meds OMT done Proceed with PT No work this summer01/25/2011 Appointment: María Elena Appiah WPtel: [address] [place] [address] ACUTE ILLNESS 01/25/2011 Patient Education: Patient Medication Summary Completed 01/25/2011 Visit Plan: Start PT Long discussion abo ut getting pain meds from only us and can only have max of 4grams of tylenol per day Change to Hydrocodone 10/325mg 1- 2 po TID prn pain--#180 called to Radha 01/18/2011 Appointment: María Elena Appiah WPtel: [address] [place] [address] FOLLOW UP 01/18/2011 Patient Education: Patient Medication Summary Completed 01/18/2011 Visit Plan: Daily back stretches, moist heat, Biofreeze prn 11/29/2010 Appointment: María Elena Appiah WPtel: [address] [place] [address] ER Follow UP 11/29/2010 Patient Education: Patient Medication Summary Completed 11/29/2010 Visit Plan: Saline nasal flushes prn. Ty lenol/Motrin prn headache. Notify if persists/symptoms worsening. Finish augmentin Add Medrol Dose Pack 10/10/2010 Appointment: María Elena Appiah WPtel: [address] [place] [address] ACUTE ILLNESS 10/10/2010 Patient Education: Patient Medication Summary Completed 10/10/2010 Visit Plan: Cryotherapy x3 to multiple l esions on both forearms 07/19/2010 Appointment: María Elena Appiah WPtel: [address] [place] [address] OFFICE SURGERY 07/19/2010 Patient Education: Patient Medication Summary Completed 07/19/2010 Appointment: María Elena Appiah WPtel: [address] [place] [address] [place] BP CHECK 07/06/2010 Patient Education: Patient Medication Summary Completed 07/06/2010 Appointment: María Elena Appiah WPtel: [phone] [place], [place] [id number] [place] BP CHECK 06/30/2010 Patient Education: Patient Medication Summary Completed 06/30/2010 Appointment: María Elena Appiah WPtel: [address] [place] [address] BP CHECK 06/20/2010 Patient Education: Patient Medication Summary Completed 06/20/2010 Visit Plan: Change Diovan to Exforge 160 /5mg QD OMT done to thoracics BP check in 2wks 06/07/2010 Appointment: María Elena Appiah WPtel: [address] [place] [address] FOLLOW UP 06/07/2010 Patient Education: Patient Medication Summary Completed 06/07/2010 Appointment: María Elena Appiah WPtel: [address] [place] [address] BP CHECK 06/03/2010 Patient Education: Patient Medication Summary Completed 06/03/2010 Appointment: María Elena Appiah WPtel: [address] [place] [address] BP CHECK 06/01/2010 Patient Education: Patient Medication Summary Completed 06/01/2010 Visit Plan: Irritated skin tags to left neck x2 excised at base with scissors and base cauterized 05/30/2010 Appointment: María Elena Appiah WPtel: [address] [place] [address] OFFICE SURGERY 05/30/2010 Patient Education: Patient Medication Summary Completed 05/30/2010 Visit Plan: Saline nasal flushes prn. Ty lenol/Motrin prn headache. Notify if persists/symptoms worsening. Restart Nasonex Has allergy testing set for May 25 04/27/2010 Appointment: María Elena Appiah WPtel: [address] [place] [address] ACUTE ILLNESS 04/27/2010 Patient Education: Patient Medication Summary Completed 04/27/2010 Visit Plan: Saline nasal flushes prn. Ty lenol/Motrin prn headache. Notify if persists/symptoms worsening. Omnaris BID plus injections 04/05/2010 Appointment: María Elena Appiah WPtel: [address] [place] [address] ACUTE ILLNESS 04/05/2010 Patient Education: Patient Medication Summary Completed 04/05/2010 Visit Plan: Saline nasal flushes prn. Ty lenol/Motrin prn headache. Notify if persists/symptoms worsening. 03/09/2010 Appointment: María Elena Appiah WPtel: [address] [place] [address] ACUTE ILLNESS 03/09/2010 Patient Education: Patient Medication Summary Completed 03/09/2010 Visit Plan: Cont Clonidine as is Cont Pr emarin Fwup with surgery as scheduled 03/03/2010 Appointment: María Elena Appiahtel: [address] [place] [address] FOLLOW UP 03/03/2010 Patient Education: Patient Medication Summary Completed 03/03/2010 Visit Plan: Check Pelvic US now Chelsey Sal C vs Hysterectomy 01/17/2010 Appointment: María Elena Appiahtel: [address] [place] [address] ACUTE ILLNESS 01/17/2010 Patient Education: Patient Medication Summary Completed 01/17/2010 Visit Plan: Check fasting lab and schedu le Mammogram 2gm Na Diet Trial of Ambien 10mg qhs Fwup pending lab results 12/27/2009 Appointment: María Elena Appiah WPtel: [address] [place] [address] ESTABLISHED PATIENT 12/27/2009 Patient Education: Patient Medication Summary Completed 12/27/2009 Referral: Canelo Overton WPtel: [phone] [id number] [place] Referral Initiated Referral: Philipp Flores WPtel: [address] [id number] [place] Referral Appointment Requested Instructions Comment . [...] to rest and hydrate. Discussed stroke and DC symptoms. Pt. instructed to seek ER eval [...]
--- OUTSIDE RECORDS SUMMARY | 2020-03-13 05:27 | XMS REPORT | CCD ---
Author Author Gale Appiah D.O. Organization [facility] Address [address] [place] [phone] Phone Care Team Providers Care Pin Drafter Name Role Phone María Elena Appiah D.O., PP Unavailable CCM Unavailable Summary Purpose Interface Exchange Insurance Providers Payer name Policy type / Coverage type Covered democrat ID Effective Begin Date Effective End Date [facility] Commercial Insurance [id number] Unknown Family History Family History data not found Social History Social History Element Codes Description Effective Dates Tobacco history SNOMED CT: [id number] Never smoker 05/22/2011 Allergies, Adverse Reactions, Alerts [...] Fill Instructions Januvia 100 mg tablet RxNorm: 929821 1 Tablet(s) Oral QD 11/20/2019 0 11/20/2019 Inactive glimepiride 2 mg tablet RxNorm: 877035 1 Tablet(s) Oral two sawyer es a day 11/20/2019 12/20/2019 Active cyclobenzaprine 10 mg tablet RxNorm: 304993 TAKE ONE TA BLET BY MOUTH THREE TIMES A DAY NEEDED FOR MUSCLE SPASMS 11/17/2019 No Stop Date Active doxepin 25 mg capsule RxNorm: 1060983 TAKE ONE CAPSULE B Y MOUTH EVERY NIGHT AT BEDTIME NEEDED FOR SLEEP 11/16/2019 No Stop Date Active Klor-Con 8 mEq tablet,extended release RxNorm: 845570 T FARRUKH ONE TABLET BY MOUTH TWICE A DAY 11/16/2019 No Stop Date Active hydrocodone 10 mg-acetaminophen 325 mg tablet RxNorm: 300536 1-2 Tablet(s) Oral three times a day as needed for pain 11/10/2019 No Stop Date Active cyclobenzaprine 10 mg tablet RxNorm: 429954 TAKE ONE TA BLET BY MOUTH THREE TIMES A DAY NEEDED FOR MUSCLE SPASMS 10/23/2019 11/16/2019 Inactive duloxetine 60 mg capsule,delayed release RxNorm: 734168 1 Capsu le(s) Oral QD 10/17/2019 04/13/2020 Active celecoxib 200 mg capsule RxNorm: 653288 1 Capsule(s) Or al two times a day as needed for pain 10/17/2019 01/14/2020 Active lisinopril 20 mg tablet RxNorm: 572858 1 Tablet(s) Oral QD 10/17/1904/13/2020 Active gabapentin 300 mg capsule RxNorm: 479110 1 Capsule(s) O ral every night at bedtime 10/17/2019 01/15/2020 Active Singulair 10 mg tablet RxNorm: 377242 1 Tablet(s) Oral QD 10/17/2019 04/14/2020 Active metoprolol tartrate 100 mg tablet RxNorm: 675221 1 Tabl et(s) Oral two times a day 10/17/2019 04/13/2020 Active clonidine HCl 0.1 mg tablet RxNorm: 694826 1 Tablet(s) Oral fou r times a day 10/17/2019 04/13/2020 Active Januvia 100 mg tablet RxNorm: 724038 1 Tablet(s) Oral QD 10/17/2019 No Stop Date Active Lipitor 10 mg tablet RxNorm: 135245 1 Tablet(s) Oral QD 10/17/2019 Active Steglatro 15 mg tablet RxNorm: 4935350 1 Tablet(s) Oral QD 10/17/19 No Stop Date Active Klor-Con 8 mEq tablet,extended release RxNorm: 122274 1 Tablet(s) Oral two times a day 10/17/2019 11/15/2019 Inactive Glyxambi 25 mg-5 mg tablet RxNorm: 5813878 1 Tablet(s) Oral QD 01/202010/16/2019 Inactive Patient will bring in copay discount card as well Glyxambi 25 mg-5 mg tablet RxNorm: 8660101 1 Tablet(s) Oral QD 01/202010/14/2019 Inactive Patient will bring in copay discount card as well Keflex 500 mg capsule RxNorm: 633778 1 Capsule(s) Oral two time s a day 10/07/2019 10/14/2019 Inactive Premarin 1.25 mg tablet RxNorm: 864192 1 Tablet(s) Oral QD 09/30/1906/25/2020 Active hydrocodone 10 mg-acetaminophen 325 mg tablet RxNorm: 349180 1-2 Tablet(s) Oral three times a day as needed for pain 09/30/2019 09/30/2019 Inactive baclofen 10 mg tablet RxNorm: 554863 TAKE ONE TABLET BY MOUTH THREE TIMES A DAY NEEDED 09/19/2019 No Stop Date Active gabapentin 300 mg capsule RxNorm: 362582 TAKE ONE CAPSU LE BY MOUTH EVERY NIGHT AT BEDTIME 09/19/2019 10/16/2019 Inactive Klor-Con 8 mEq tablet,extended release RxNorm: 846069 T FARRUKH ONE TABLET BY MOUTH TWICE A DAY 1 Tablet(s) Oral two times a day 09/19/2019 10/16/2019 [place] [facility] hydrocodone 10 mg-acetaminophen 325 mg tablet RxNorm: 918219 1-2 Tablet(s) Oral three times a day as needed for pain 09/19/2019 09/29/2019 Inactive triamterene 75 mg-hydrochlorothiazide 50 mg tablet RxNorm: 3 19880 TAKE ONE TABLET BY MOUTH DAILY 09/11/2019 No Stop Date Active allopurinol 300 mg tablet RxNorm: 321396 TAKE ONE TABLET BY LOPEZ TH DAILY 09/11/2019 No Stop Date Active duloxetine 60 mg capsule,delayed release RxNorm: 357229 TAKE ONE CAPSULE BY MOUTH DAILY 09/11/2019 10/16/2019 Inactive Lipitor 10 mg tablet RxNorm: 744950 TAKE ONE TABLET BY MOUTH AT BEDTIME 09/11/2019 10/16/2019 Inactive lisinopril 20 mg tablet RxNorm: 878076 TAKE ONE TABLET BY MOUTH DAILY .... THIS REPLACE 10MG TABLETS 09/11/2019 10/16/2019 Inactive celecoxib 200 mg capsule RxNorm: 092209 TAKE ONE CAPSUL E BY MOUTH TWICE A DAY NEEDED FOR PAIN 09/11/2019 10/16/2019 Inactive clonidine HCl 0.1 mg tablet RxNorm: 499123 TAKE ONE TAB LET BY MOUTH FOUR TIMES A DAY 09/11/2019 10/16/2019 Inactive doxepin 25 mg capsule RxNorm: 9328355 1 Capsule(s) Oral every night at bedtime as needed for sleep 08/21/2019 11/15/2019 Inactive hydrocodone 10 mg-acetaminophen 325 mg tablet RxNorm: 706966 1-2 Tablet(s) PO TID 08/12/2019 09/29/2019 Inactive as needed for pa in - Previous quantity #240, will start dosing for #180 in April 2011 per Doctor Td. Medrol (Dustin) 4 mg tablets in a dose pack RxNorm: 458355 Tablet(s) Oral As Directed 07/21/2019 09/29/2019 Inactive Premarin 1.25 mg tablet RxNorm: 582733 1 Tablet(s) Oral QD 07/02/2009/29/2019 Inactive hydrocodone 10 mg-acetaminophen 325 mg tablet RxNorm: 578677 1-2 Tablet(s) PO TID 07/01/2019 08/11/2019 Inactive as needed for pa in - Previous quantity #240, will start dosing for #180 in April 2011 per Doctor Td. gabapentin 300 mg capsule RxNorm: 871764 1 Capsule(s) PO QHS 201809/18/2019 Inactive celecoxib 200 mg capsule RxNorm: 231091 1 Capsule(s) Or al two times a day as needed for pain 06/27/2019 06/27/2019 Inactive furosemide 40 mg tablet RxNorm: 159203 TAKE ONE TABLET BY MOUTH EVERY MORNING NEEDED FOR EDEMA . TAKE WITH POTASSIUM 06/24/2019 No Stop Date Active doxepin 25 mg capsule RxNorm: 9837080 TAKE ONE CAPSULE B Y MOUTH EVERY NIGHT AT BEDTIME NEEDED FOR SLEEP 06/24/2019 08/20/2019 Inactive Singulair 10 mg tablet RxNorm: 424956 TAKE ONE TABLET BY MOUTH JOSÉ Y 06/24/2019 10/16/2019 Inactive lisinopril 20 mg tablet RxNorm: 981694 TAKE ONE TABLET BY MOUTH DAILY .... THIS REPLACE 10MG TABLETS 06/24/2019 09/10/2019 Inactive nystatin-triamcinolone 100,000 unit/g-0.1 % topical cream Rx Norm: 2709625 1 Application Topical two times a day 06/12/2019 06/19/2019 Inactive apply BID for 1 week nystatin-triamcinolone 100,000 unit/g-0.1 % topical cream Rx Norm: 9611227 1 Application Topical two times a day 06/12/2019 06/11/2019 Inactive apply BID for 1 week hydrocodone 10 mg-acetaminophen 325 mg tablet RxNorm: 650429 1-2 Tablet(s) PO QID as needed for pain MUST LAST 30 DAYS 05/28/2019 06/26/2019 Inactiv e (Response to an electronic controlled substance refill request - RxReferenceNumber: [id number]) baclofen 20 mg tablet RxNorm: 293987 1 Tablet(s) PO TID as needed for muscle spasm 05/19/2019 05/27/2019 Inactive gabapentin 300 mg capsule RxNorm: 421833 1 Capsule(s) PO QHS 201805/27/2019 Inactive lisinopril 20 mg tablet RxNorm: 946500 1 Tablet(s) PO Q D TAKE ONE TABLET BY MOUTH DAILY, REPLACES 10 MG DOSE 05/19/2019 06/23/2019 Inactive doxepin 25 mg capsule RxNorm: 6448677 TAKE ONE CAPSULE B Y MOUTH EVERY NIGHT AT BEDTIME NEEDED FOR SLEEP 05/16/2019 06/14/2019 Inactive lisinopril 20 mg tablet RxNorm: 694353 TAKE ONE TABLET BY MOUTH DAILY, REPLACES 10 MG DOSE 05/16/2019 05/18/2019 Inactive Singulair 10 mg tablet RxNorm: 657994 TAKE ONE TABLET BY MOUTH JOSÉ Y 05/16/2019 06/14/2019 Inactive gabapentin 300 mg capsule RxNorm: 538623 1 Capsule(s) PO QHS 201805/04/2019 Inactive estropipate 1.5 mg tablet RxNorm: 372595 1 Tablet(s) PO QD 05/05/20 19 05/27/2019 Inactive estropipate 1.5 mg tablet RxNorm: 760800 1 Tablet(s) PO QD 05/05/20 19 05/04/2019 Inactive gabapentin 300 mg capsule RxNorm: 185825 1 Capsule(s) PO QHS 201805/18/2019 Inactive hydrocodone 10 mg-acetaminophen 325 mg tablet RxNorm: 575921 1-2 Tablet(s) PO QID as needed for pain MUST LAST 30 DAYS 04/25/2019 05/24/2019 Inactiv e (Response to an electronic controlled substance refill request - RxReferenceNumber: [id number]) cyclobenzaprine 10 mg tablet RxNorm: 098953 TAKE ONE TA BLET BY MOUTH THREE TIMES A DAY NEEDED FOR MUSCLE SPASMS 04/24/2019 05/18/2019 Inactive metoprolol tartrate 100 mg tablet RxNorm: 149008 TAKE O NE TABLET BY MOUTH TWICE A DAY 04/24/2019 10/16/2019 Inactive Lyrica 75 mg capsule RxNorm: 126630 1 Capsule(s) PO QHS 03/25/2019 Inactive duloxetine 60 mg capsule,delayed release RxNorm: 161812 TAKE ONE CAPSULE BY MOUTH DAILY 03/21/2019 05/19/2019 Inactive triamterene 75 mg-hydrochlorothiazide 50 mg tablet RxNorm: 3 14916 TAKE ONE TABLET BY MOUTH DAILY 03/21/2019 05/19/2019 Inactive Klor-Con 8 mEq tablet,extended release RxNorm: 904867 T FARRUKH ONE TABLET BY MOUTH TWICE A DAY 03/21/2019 09/18/2019 Inactive Lipitor 10 mg tablet RxNorm: 668062 TAKE ONE TABLET BY MOUTH AT BEDTIME 03/21/2019 09/10/2019 Inactive clonidine HCl 0.1 mg tablet RxNorm: 886681 TAKE ONE TAB LET BY MOUTH FOUR TIMES A DAY 03/21/2019 05/19/2019 Inactive allopurinol 300 mg tablet RxNorm: 638775 TAKE ONE TABLET BY LOPEZ TH DAILY 03/21/2019 05/19/2019 Inactive hydrocodone 10 mg-acetaminophen 325 mg tablet RxNorm: 422914 1-2 Tablet(s) PO QID as needed for pain MUST LAST 30 DAYS 02/28/2019 03/29/2019 Inactiv e (Response to an electronic controlled substance refill request - RxReferenceNumber: [id number]) furosemide 40 mg tablet RxNorm: 766051 TAKE ONE TABLET BY MOUTH EVERY MORNING NEEDED FOR EDEMA . TAKE WITH POTASSIUM 02/21/2019 03/22/2019 Inactive cyclobenzaprine 10 mg tablet RxNorm: 103113 TAKE ONE TA BLET BY MOUTH THREE TIMES A DAY NEEDED FOR MUSCLE SPASMS 02/21/2019 04/21/2019 Inactive lisinopril 20 mg tablet RxNorm: 253169 TAKE ONE TABLET BY MOUTH DAILY, REPLACES 10 MG DOSE 02/21/2019 05/15/2019 Inactive doxepin 25 mg capsule RxNorm: 0365369 TAKE ONE CAPSULE B Y MOUTH EVERY NIGHT AT BEDTIME NEEDED FOR SLEEP 02/21/2019 05/15/2019 Inactive nystatin 100,000 unit/gram topical cream RxNorm: 770141 APPLY TO AFFECTED AREA(S) TWO TIMES A DAY 02/21/2019 03/22/2019 Inactive estradiol 1 mg tablet RxNorm: 493342 2 Tablet(s) PO QD replaces premarin 01/22/2019 05/04/2019 Inactive lisinopril 20 mg tablet RxNorm: 930226 TAKE ONE TABLET BY MOUTH DAILY, REPLACES 10 MG DOSE 01/20/2019 02/18/2019 Inactive cyclobenzaprine 10 mg tablet RxNorm: 103123 TAKE ONE TA BLET BY MOUTH THREE TIMES A DAY NEEDED FOR MUSCLE SPASMS 01/20/2019 02/18/2019 Inactive metoprolol tartrate 100 mg tablet RxNorm: 379927 TAKE O NE TABLET BY MOUTH TWICE A DAY 01/20/2019 02/18/2019 Inactive cyclobenzaprine 10 mg tablet RxNorm: 510562 TAKE ONE TA BLET BY MOUTH THREE TIMES A DAY NEEDED FOR MUSCLE SPASMS 12/19/2018 01/17/2019 Inactive lisinopril 20 mg tablet RxNorm: 272555 TAKE ONE TABLET BY MOUTH DAILY, REPLACES 10 MG DOSE 12/19/2018 01/17/2019 Inactive duloxetine 60 mg capsule,delayed release RxNorm: 422774 TAKE ONE CAPSULE BY MOUTH DAILY 12/19/2018 01/17/2019 Inactive Lipitor 10 mg tablet RxNorm: 872740 TAKE ONE TABLET BY MOUTH AT BEDTIME 12/19/2018 01/17/2019 Inactive cyclobenzaprine 10 mg tablet RxNorm: 428120 1 Tablet(s) PO TID as needed for muscle spasm 11/19/2018 12/18/2018 Inactive Singulair 10 mg tablet RxNorm: 814141 1 Tablet(s) PO QD 11/19/2018 Inactive lisinopril 20 mg tablet RxNorm: 920946 TAKE ONE TABLET BY MOUTH DAILY, REPLACES 10 MG DOSE 11/15/2018 12/18/2018 Inactive hydrocodone 10 mg-acetaminophen 325 mg tablet RxNorm: 577808 1-2 Tablet(s) PO QID as needed for pain MUST LAST 30 DAYS 11/13/2018 12/12/2018 Inactiv e (Response to an electronic controlled substance refill request - RxReferenceNumber: [id number]) nystatin 100,000 unit/gram topical cream RxNorm: 437859 APPLY TO AFFECTED AREA(S) TWO TIMES A DAY 10/23/2018 11/06/2018 Inactive lisinopril 20 mg tablet RxNorm: 127725 1 Tablet(s) PO QD replac es 10mg dose 10/18/2018 11/14/2018 Inactive hydrocodone 10 mg-acetaminophen 325 mg tablet RxNorm: 475332 1-2 Tablet(s) QID as needed for pain MUST LAST 30 DAYS 10/08/2018 11/06/2018 Inactive (Response to an electronic controlled substance refill request - RxReferenceNumber: [id number]) lisinopril 10 mg tablet RxNorm: 600573 1 Tablet(s) PO QD 10/03/2018 0 01/21/2019 Inactive Celebrex 200 mg capsule RxNorm: 837283 TAKE ONE CAPSULE BY MOUT H TWICE A DAY 09/30/2018 05/04/2019 Inactive cyclobenzaprine 10 mg tablet RxNorm: 306405 TAKE ONE TA BLET BY MOUTH THREE TIMES A DAY NEEDED FOR MUSCLE SPASMS 09/30/2018 11/18/2018 Inactive doxepin 25 mg capsule RxNorm: 1452953 TAKE ONE CAPSULE B Y MOUTH EVERY NIGHT AT BEDTIME NEEDED 09/05/2018 10/16/2018 Inactive omeprazole 40 mg capsule,delayed release RxNorm: 934188 TAKE ONE CAPSULE BY MOUTH DAILY 09/05/2018 01/21/2019 Inactive furosemide 40 mg tablet RxNorm: 981187 TAKE ONE TABLET BY MOUTH EVERY MORNING NEEDED FOR EDEMA . TAKE WITH POTASSIUM 09/05/2018 11/03/2018 Inactive phentermine 37.5 mg tablet RxNorm: 550773 1 Tablet(s) PO QAM 201701/21/2019 Inactive doxepin 25 mg capsule RxNorm: 7280389 1 Capsule(s) PO QH S as needed for sleep TAKE ONE CAPSULE BY MOUTH EVERY NIGHT AT BEDTIME NEEDED 08/27/2018 09/04/2018 Inactive Keflex 500 mg capsule RxNorm: 880112 1 Capsule(s) PO TID 08/09/2018 1 10/19/2017 Inactive Diflucan 100 mg tablet RxNorm: 804478 1 Tablet(s) PO QD 08/09/2018 Inactive Premarin 1.25 mg tablet RxNorm: 506202 2 Tablet(s) PO QD 08/09/2018 0 05/04/2019 Inactive Zofran ODT 4 mg disintegrating tablet RxNorm: 355270 1 Tablet(s) PO Q4H as needed for nausea 08/09/2018 01/21/2019 Inactive metoprolol tartrate 100 mg tablet RxNorm: 166489 TAKE O NE TABLET BY MOUTH TWICE A DAY 2018 10/04/2018 Inactive doxepin 25 mg capsule RxNorm: 6860453 TAKE ONE CAPSULE B Y MOUTH EVERY NIGHT AT BEDTIME NEEDED 2018 08/26/2018 Inactive cyclobenzaprine 10 mg tablet RxNorm: 395670 TAKE ONE TA BLET BY MOUTH THREE TIMES A DAY NEEDED FOR MUSCLE SPASMS 2018 09/29/2018 Inactive hydrocodone 10 mg-acetaminophen 325 mg tablet RxNorm: 095670 1-2 Tablet(s) QID as needed for pain MUST LAST 30 DAYS 07/29/2018 08/27/2018 Inactive (Response to an electronic controlled substance refill request - RxReferenceNumber: [id number]) nystatin 100,000 unit/gram topical powder RxNorm: 839560 Applic ation TOP BID 07/22/2018 08/04/2018 Inactive doxepin 25 mg capsule RxNorm: 8195662 1 Capsule(s) PO QHS as needed 07/22/2018 08/05/2018 Inactive triamterene 75 mg-hydrochlorothiazide 50 mg tablet RxNorm: 3 70977 TAKE ONE TABLET BY MOUTH DAILY 07/05/2018 10/02/2018 Inactive duloxetine 60 mg capsule,delayed release RxNorm: 971774 TAKE ONE CAPSULE BY MOUTH DAILY 07/05/2018 09/02/2018 Inactive Klor-Con 8 mEq tablet,extended release RxNorm: 438685 T FARRUKH ONE TABLET BY MOUTH TWICE A DAY 07/05/2018 10/02/2018 Inactive Lipitor 10 mg tablet RxNorm: 635814 TAKE ONE TABLET BY MOUTH AT BEDTIME 07/05/2018 09/02/2018 Inactive allopurinol 300 mg tablet RxNorm: 005327 TAKE ONE TABLET BY LOPEZ TH DAILY 07/05/2018 10/02/2018 Inactive clonidine HCl 0.1 mg tablet RxNorm: 626619 TAKE ONE TAB LET BY MOUTH FOUR TIMES A DAY 07/05/2018 10/02/2018 Inactive hydrocodone 10 mg-acetaminophen 325 mg tablet RxNorm: 112885 1-2 Tablet(s) QID as needed for pain MUST LAST 30 DAYS 06/28/2018 07/27/2018 Inactive (Response to an electronic controlled substance refill request - RxReferenceNumber: [id number]) MediHoney (calcium alginate-honey) 4" X 5" bandage RxNorm: 1 Application TOP QD 06/17/2018 06/26/2018 Inactive honey-hydrocolloid dressing 4" X 5" RxNorm: 1 Application TOP QD 06/17/2018 07/16/2018 Inactive furosemide 40 mg tablet RxNorm: 481725 TAKE ONE TABLET BY MOUTH EVERY MORNING NEEDED FOR EDEMA . TAKE WITH POTASSIUM 06/10/2018 07/09/2018 Inactive This is a refill request. hydrocodone 10 mg-acetaminophen 325 mg tablet RxNorm: 956504 1-2 Tablet(s) QID as needed for pain MUST LAST 30 DAYS 05/30/2018 06/27/2018 Inactive (Response to an electronic controlled substance refill request - RxReferenceNumber: [id number]) acyclovir 800 mg tablet RxNorm: 239752 1 Tablet(s) PO 5x day 201705/22/2018 Inactive Premarin 1.25 mg tablet RxNorm: 352926 1-2 Tablet(s) PO QD 05/15/20 18 07/13/2018 Inactive cyclobenzaprine 10 mg tablet RxNorm: 730019 1 Tablet(s) PO TID as needed for muscle spasm 05/09/2018 05/08/2018 Inactive Medrol (Dustin) 4 mg tablets in a dose pack RxNorm: 080979 Tablet(s) PO As Directed 05/02/2018 06/16/2018 Inactive hydrocodone 10 mg-acetaminophen 325 mg tablet RxNorm: 393883 1-2 Tablet(s) QID as needed for pain MUST LAST 30 DAYS 04/30/2018 05/29/2018 Inactive (Response to an electronic controlled substance refill request - RxReferenceNumber: [id number]) duloxetine 60 mg capsule,delayed release RxNorm: 606987 TAKE ONE CAPSULE BY MOUTH DAILY 04/16/2018 05/15/2018 Inactive Celebrex 200 mg capsule RxNorm: 618574 TAKE ONE CAPSULE BY MOUT H TWICE A DAY 04/16/2018 06/14/2018 Inactive Singulair 10 mg tablet RxNorm: 202624 TAKE ONE TABLET BY MOUTH JOSÉ Y 04/16/2018 11/19/2018 Inactive Lipitor 10 mg tablet RxNorm: 582603 TAKE ONE TABLET BY MOUTH AT BEDTIME 04/16/2018 05/15/2018 Inactive hydrocodone 10 mg-acetaminophen 325 mg tablet RxNorm: 783761 1-2 Tablet(s) QID as needed for pain MUST LAST 30 DAYS 03/29/2018 04/27/2018 Inactive (Response to an electronic controlled substance refill request - RxReferenceNumber: [id number]) cyclobenzaprine 10 mg tablet RxNorm: 141747 1 Tablet(s) PO TID as needed for muscle spasm 03/18/2018 05/09/2018 Inactive omeprazole 40 mg capsule,delayed release RxNorm: 465710 1 Capsu le(s) PO QD 02/26/2018 08/24/2018 Inactive hydrocodone 10 mg-acetaminophen 325 mg tablet RxNorm: 105366 1-2 Tablet(s) QID as needed for pain MUST LAST 30 DAYS 02/26/2018 03/27/2018 Inactive (Response to an electronic controlled substance refill request - RxReferenceNumber: [id number]) metoprolol tartrate 100 mg tablet RxNorm: 935665 1 Tablet(s) PO BID 02/18/2018 08/05/2018 Inactive Lyrica 75 mg capsule RxNorm: 388672 1 Capsule(s) PO QHS 01/30/2018 Inactive phentermine 37.5 mg tablet RxNorm: 398836 1 Tablet(s) PO QAM 201706/16/2018 Inactive hydrocodone 10 mg-acetaminophen 325 mg tablet RxNorm: 210003 1-2 Tablet(s) QID as needed for pain MUST LAST 30 DAYS 01/29/2018 02/25/2018 Inactive (Response to an electronic controlled substance refill request - RxReferenceNumber: [id number]) Klor-Con 8 mEq tablet,extended release RxNorm: 069561 1 Tablet( s) PO BID 01/14/2018 07/04/2018 Inactive allopurinol 300 mg tablet RxNorm: 122736 1 Tablet(s) PO QD 01/15/2007/04/2018 Inactive Lipitor 10 mg tablet RxNorm: 711101 1 Tablet(s) PO QHS 01/14/201812/2017 Inactive triamterene 75 mg-hydrochlorothiazide 50 mg tablet RxNorm: 3 28999 1 Tablet(s) PO QD 01/14/2018 07/04/2018 Inactive hydrocodone 10 mg-acetaminophen 325 mg tablet RxNorm: 726121 1-2 Tablet(s) QID as needed for pain MUST LAST 30 DAYS 12/27/2017 01/25/2018 Inactive (Response to an electronic controlled substance refill request - RxReferenceNumber: [id number]) Onglyza 5 mg tablet RxNorm: 380693 1 Tablet(s) PO QD 12/18/201701/29 Inactive metformin 500 mg tablet RxNorm: 124778 1 Tablet(s) PO BID 12/11/2017 12/10/2017 Inactive metformin 500 mg tablet RxNorm: 312555 1 Tablet(s) PO BID 12/11/2017 12/17/2017 Inactive furosemide 40 mg tablet RxNorm: 949566 1 Tablet(s) PO Q AM prn edema--take with potassium 12/11/2017 06/08/2018 Inactive cyclobenzaprine 10 mg tablet RxNorm: 437733 1 Tablet(s) PO TID as needed for muscle spasm 12/11/2017 03/18/2018 Inactive hydrocodone 10 mg-acetaminophen 325 mg tablet RxNorm: 486128 1-2 Tablet(s) QID as needed for pain MUST LAST 30 DAYS 10/23/2017 11/21/2017 Inactive (Response to an electronic controlled substance refill request - RxReferenceNumber: [id number]) Lipitor 10 mg tablet RxNorm: 498127 1 Tablet(s) PO QHS 10/16/201703/2018 Inactive cyclobenzaprine 10 mg tablet RxNorm: 530830 1 Tablet(s) PO TID as needed for muscle spasm 10/09/2017 12/10/2017 Inactive hydroxyzine HCl 25 mg tablet RxNorm: 112582 1 Tablet(s) PO BID as needed for anxiety 09/20/2017 01/29/2018 Inactive Effexor XR 75 mg capsule,extended release RxNorm: 824272 1 Caps ule(s) PO QD 09/20/2017 01/29/2018 Inactive metoprolol tartrate 100 mg tablet RxNorm: 996182 1 Tablet(s) PO BID 08/20/2017 02/18/2018 Inactive baclofen 20 mg tablet RxNorm: 861345 1 Tablet(s) PO TID as needed for muscle spasm 08/20/2017 01/21/2019 Inactive clonidine HCl 0.1 mg tablet RxNorm: 220844 1 Tablet(s) PO QID 08/2005/16/2018 Inactive Seroquel 25 mg tablet RxNorm: 300004 1 Tablet(s) PO QHS 08/17/2017 Inactive Seroquel 25 mg tablet RxNorm: 997578 1 Tablet(s) PO QHS 08/17/2017 Inactive Diflucan 100 mg tablet RxNorm: 664723 TAKE ONE TABLET BY MOUTH JOSÉ Y 07/25/2017 08/07/2017 Inactive hydrocodone 10 mg-acetaminophen 325 mg tablet RxNorm: 232018 1-2 Tablet(s) QID as needed for pain MUST LAST 30 DAYS 07/19/2017 08/17/2017 Inactive (Response to an electronic controlled substance refill request - RxReferenceNumber: [id number]) clindamycin 300 mg capsule RxNorm: 321751 1 Capsule(s) PO TID 07/1907/28/2017 Inactive clotrimazole-betamethasone 1 %-0.05 % topical cream RxNorm: 120392 Application TOP BID to elbow rash 07/19/2017 06/16/2018 Inactive Singulair 10 mg tablet RxNorm: 053979 Tablet(s) TAKE ONE TABLET BY MOUTH DAILY 07/18/2017 04/13/2018 Inactive triamterene 75 mg-hydrochlorothiazide 50 mg tablet RxNorm: 3 30831 1 Tablet(s) PO QD 07/18/2017 01/14/2018 Inactive Celebrex 200 mg capsule RxNorm: 825801 Capsule(s) TAKE ONE CAPSULE BY MOUTH TWICE A DAY 07/18/2017 10/15/2017 Inactive hydrocodone 10 mg-acetaminophen 325 mg tablet RxNorm: 621679 1-2 Tablet(s) QID as needed for pain MUST LAST 30 DAYS 06/19/2017 07/18/2017 Inactive (Response to an electronic controlled substance refill request - RxReferenceNumber: [id number]) hydrocodone 10 mg-acetaminophen 325 mg tablet RxNorm: 219539 1-2 Tablet(s) QID as needed for pain MUST LAST 30 DAYS 06/19/2017 06/18/2017 Inactive (Response to an electronic controlled substance refill request - [facility]: [id number]) baclofen 20 mg tablet RxNorm: 292631 1 Tablet(s) PO TID as needed for muscle spasm 06/18/2017 08/20/2017 Inactive Medrol (Dustin) 4 mg tablets in a dose pack RxNorm: 841383 Tablet(s) PO As Directed 06/05/2017 07/18/2017 Inactive omeprazole 40 mg capsule,delayed release RxNorm: 648296 1 Capsu le(s) PO QD 04/20/2017 10/16/2017 Inactive Premarin 1.25 mg tablet RxNorm: 336504 1-2 Tablet(s) PO QD 04/11/20 17 05/15/2018 Inactive duloxetine 60 mg capsule,delayed release RxNorm: 339614 1 Capsu le(s) PO QD 04/11/2017 09/19/2017 Inactive furosemide 40 mg tablet RxNorm: 661294 1 Tablet(s) PO Q AM prn edema--take with potassium 04/11/2017 12/11/2017 Inactive Klor-Con 8 mEq tablet,extended release RxNorm: 028611 1 Tablet( s) PO BID 04/11/2017 01/14/2018 Inactive Lipitor 10 mg tablet RxNorm: 704963 1 Tablet(s) PO QHS 04/11/201702/2018 Inactive amlodipine 5 mg-benazepril 20 mg capsule RxNorm: 500457 1 Capsu le(s) PO QD 04/11/2017 01/29/2018 Inactive allopurinol 300 mg tablet RxNorm: 185502 1 Tablet(s) PO QD 04/11/20 17 01/14/2018 Inactive clonidine HCl 0.1 mg tablet RxNorm: 081668 1 Tablet(s) PO QID 04/0508/19/2017 Inactive baclofen 20 mg tablet RxNorm: 158415 1 Tablet(s) PO TID as needed for muscle spasm 04/02/2017 06/18/2017 Inactive Premarin 1.25 mg tablet RxNorm: 478079 1-2 Tablet(s) PO QD 03/20/2026 0404/10/2017 Inactive hydrocodone 10 mg-acetaminophen 325 mg tablet RxNorm: 892480 1-2 Tablet(s) QID as needed for pain MUST LAST 30 DAYS 03/14/2017 01/21/2019 Inactive (Response to an electronic controlled substance refill request - RxReferenceNumber: [id number]) metoprolol tartrate 100 mg tablet RxNorm: 896151 1 Tablet(s) PO BID 02/12/2017 08/20/2017 Inactive hydrocodone 10 mg-acetaminophen 325 mg tablet RxNorm: 069436 1-2 Tablet(s) QID as needed for pain MUST LAST 30 DAYS 02/08/2017 03/09/2017 Inactive (Response to an electronic controlled substance refill request - RxReferenceNumber: [id number]) metoprolol tartrate 100 mg tablet RxNorm: 281223 TAKE O NE TABLET BY MOUTH TWICE A DAY 01/11/2017 02/12/2017 Inactive metoprolol tartrate 100 mg tablet RxNorm: 040469 1 Tablet(s) PO BID 12/18/2016 12/17/2016 Inactive metoprolol tartrate 100 mg tablet RxNorm: 844044 1 Tablet(s) PO BID 12/18/2016 01/10/2017 Inactive furosemide 40 mg tablet RxNorm: 589097 1 Tablet(s) PO Q AM prn edema--take with potassium 12/13/2016 02/10/2017 Inactive amitriptyline 100 mg tablet RxNorm: 049584 1 Tablet(s) PO QHS 11/2812/12/2016 Inactive baclofen 20 mg tablet RxNorm: 677697 1 Tablet(s) PO TID as needed for muscle spasm 11/14/2016 04/01/2017 Inactive triamterene 75 mg-hydrochlorothiazide 50 mg tablet RxNorm: 3 80728 1 Tablet(s) PO QD 11/14/2016 11/13/2016 Inactive metolazone 2.5 mg tablet RxNorm: 513665 TAKE ONE TABLET BY MOUTH DAILY NEEDED FOR EDEMA 11/14/2016 12/12/2016 Inactive triamterene 75 mg-hydrochlorothiazide 50 mg tablet RxNorm: 3 77344 1 Tablet(s) PO QD 11/14/2016 07/18/2017 Inactive amitriptyline 50 mg tablet RxNorm: 601317 TAKE ONE TABL ET BY MOUTH AT BEDTIME NEEDED FOR SLEEP 11/14/2016 11/27/2016 Inactive Cymbalta 60 mg capsule,delayed release RxNorm: 808327 1 Capsule (s) PO QHS 11/14/2016 12/12/2016 Inactive clonidine HCl 0.1 mg tablet RxNorm: 235596 1 Tablet(s) PO QID 11/1304/04/2017 Inactive amitriptyline 50 mg tablet RxNorm: 767535 1 Tablet(s) P O QHS as needed for sleep 11/01/2016 11/27/2016 Inactive duloxetine 60 mg capsule,delayed release RxNorm: 209498 TAKE ONE CAPSULE BY MOUTH DAILY 10/20/2016 01/17/2017 Inactive allopurinol 300 mg tablet RxNorm: 763074 TAKE ONE TABLET BY LOPEZ TH DAILY 10/20/2016 01/16/2017 Inactive Lyrica 75 mg capsule RxNorm: 983900 TAKE ONE CAPSULE BY MOUTH EVERY NIGHT AT BEDTIME 10/20/2016 12/10/2016 Inactive Klor-Con 8 mEq tablet,extended release RxNorm: 660022 T FARRUKH ONE TABLET BY MOUTH TWICE A DAY 10/20/2016 01/17/2017 Inactive Celebrex 200 mg capsule RxNorm: 871854 TAKE ONE CAPSULE BY MOUT H TWICE A DAY 10/20/2016 07/18/2017 Inactive Bystolic 10 mg tablet RxNorm: 158600 TAKE ONE TABLET BY MOUTH EVERY NIGHT AT BEDTIME 10/20/2016 12/17/2016 Inactive amlodipine 5 mg-benazepril 20 mg capsule RxNorm: 889728 TAKE ONE CAPSULE BY MOUTH EVERY NIGHT AT BEDTIME -- TO REPLACE AMLODOPINE 10/20/20162016 Inactive Lipitor 10 mg tablet RxNorm: 381368 TAKE ONE TABLET BY MOUTH EVERY NIGHT AT BEDTIME 10/20/2016 01/17/2017 Inactive alprazolam 0.5 mg tablet RxNorm: 612865 3 Tablet(s) PO QHS as needed for sleep/anxiety 09/20/2016 10/31/2016 Inactive Tamiflu 75 mg capsule RxNorm: 359500 1 Capsule(s) PO QD 09/19/2016 Inactive Lyrica 75 mg capsule RxNorm: 103580 1 Capsule(s) PO QHS 09/19/2016 Inactive prednisone 20 mg tablet RxNorm: 211529 1 Tablet(s) PO QD 08/10/2016 1 10/17/2015 Inactive doxycycline hyclate 100 mg capsule RxNorm: 0671225 1 Capsule(s) PO BID 08/10/2016 08/19/2016 Inactive Medrol (Dustin) 4 mg tablets in a dose pack RxNorm: 025819 Tablet(s) PO As Directed 07/31/2016 08/22/2016 Inactive Singulair 10 mg tablet RxNorm: 888770 TAKE ONE TABLET BY MOUTH JOSÉ Y 07/27/2016 07/18/2017 Inactive hydrocodone 10 mg-acetaminophen 325 mg tablet RxNorm: 705138 1-2 Tablet(s) QID as needed for pain MUST LAST 30 DAYS 07/26/2016 08/24/2016 Inactive (Response to an electronic controlled substance refill request - RxReferenceNumber: [id number]) alprazolam 0.5 mg tablet RxNorm: 206767 3 Tablet(s) PO QHS as needed for anxiety or sleep 07/26/2016 09/20/2016 Inactive clindamycin 300 mg capsule RxNorm: 547930 1 Capsule(s) PO TID 07/2007/29/2016 Inactive Diflucan 100 mg tablet RxNorm: 984127 1 Tablet(s) PO QD 07/20/2016 Inactive Levaquin 500 mg tablet RxNorm: 534334 1 Tablet(s) PO QD 07/17/2016 Inactive Levaquin 500 mg tablet RxNorm: 412113 1 Tablet(s) PO QD 07/10/2016 Inactive Levaquin 500 mg tablet RxNorm: 626438 1 Tablet(s) PO QD 07/10/2016 Inactive mupirocin 2 % topical ointment RxNorm: 668682 TOP Apply topically to affected areas twice daily 07/06/2016 09/18/2016 Inactive Singulair 10 mg tablet RxNorm: 079862 TAKE ONE TABLET BY MOUTH JOSÉ Y 06/21/2016 01/21/2019 Inactive alprazolam 0.5 mg tablet RxNorm: 307965 TAKE THREE TABL ETS BY MOUTH AT BEDTIME NEEDED FOR SLEEP OR STRESS 05/22/2016 06/20/2016 Inactive triamterene 75 mg-hydrochlorothiazide 50 mg tablet RxNorm: 3 24190 1 Tablet(s) PO QD 04/26/2016 10/21/2016 Inactive Premarin 1.25 mg tablet RxNorm: 150183 1-2 Tablet(s) PO QD 04/26/20 16 03/20/2017 Inactive Klor-Con 8 mEq tablet,extended release RxNorm: 666539 1 Tablet( s) PO BID 04/26/2016 10/19/2016 Inactive Celebrex 200 mg capsule RxNorm: 318265 1 Capsule(s) PO BID TAKE ONE CAPSULE BY MOUTH EVERY DAY 04/26/2016 10/19/2016 Inactive Lipitor 10 mg tablet RxNorm: 192104 1 Tablet(s) PO QHS 04/26/201605/2017 Inactive allopurinol 300 mg tablet RxNorm: 257535 1 Tablet(s) PO QD TAKE ONE TABLET BY MOUTH EVERY DAY 04/26/2016 10/19/2016 Inactive amlodipine 5 mg-benazepril 20 mg capsule RxNorm: 623421 1 Capsule(s) PO QHS replaces amlodopine 04/26/2016 10/19/2016 Inactive duloxetine 60 mg capsule,delayed release RxNorm: 344351 1 Capsu le(s) PO QD 04/26/2016 10/19/2016 Inactive Bystolic 10 mg tablet RxNorm: 913636 1 Tablet(s) PO QHS 04/26/2016 Inactive Singulair 10 mg tablet RxNorm: 698052 1 Tablet(s) PO QD TAKE ONE TABLET BY MOUTH DAILY 04/26/2016 06/20/2016 Inactive clonidine HCl 0.1 mg tablet RxNorm: 163686 1 Tablet(s) PO QID 04/2610/22/2016 Inactive hydrocodone 10 mg-acetaminophen 325 mg tablet RxNorm: 696169 1-2 Tablet(s) QID as needed for pain TAKE ONE TO TWO TABLETS BY MOUTH FOUR TIMES A DAY . MUST LAST 30 DAYS 03/31/2016 04/29/2016 Inactive (Response to an electronic controlled substance refill request - RxReferenceNumber: [id number]) Klor-Con 8 mEq tablet,extended release RxNorm: 026796 T FARRUKH ONE TABLET BY MOUTH TWICE A DAY 03/24/2016 09/29/2019 Inactive prednisone 20 mg tablet RxNorm: 249339 1 Tablet(s) PO QD 03/09/2016 0 03/08/2016 Inactive prednisone 20 mg tablet RxNorm: 712135 1 Tablet(s) PO QD 03/09/2016 0 03/13/2016 Inactive alprazolam 0.5 mg tablet RxNorm: 493900 3 Tablet(s) PO QHS as needed for sleep/stress 03/02/2016 01/21/2019 Inactive mupirocin 2 % topical ointment RxNorm: 618797 TOP twice daily to affected areas of face and neck 02/21/2016 04/25/2016 Inactive clonidine HCl 0.1 mg tablet RxNorm: 783588 TAKE ONE TAB LET BY MOUTH FOUR TIMES A DAY 02/15/2016 09/29/2019 Inactive clonidine HCl 0.1 mg tablet RxNorm: 810342 1 Tablet(s) PO QID 02/1404/25/2016 Inactive Premarin 1.25 mg tablet RxNorm: 065095 1-2 Tablet(s) PO QD 02/15/20 16 03/15/2016 Inactive Klor-Con 8 mEq tablet,extended release RxNorm: 986628 T FARRUKH ONE TABLET BY MOUTH TWICE A DAY 02/15/2016 03/15/2016 Inactive potassium chloride ER 20 mEq tablet,extended release(part/cr yst) RxNorm: 832786 2 Tablet(s) PO BID 02/15/2016 03/15/2016 Inactive Macrobid 100 mg capsule RxNorm: 495198 1 Capsule(s) PO BID 01/24/20 16 01/30/2016 Inactive prednisone 20 mg tablet RxNorm: 168461 Take 3tabs PO QD x 2 days, then 2 tabs PO QD x 2 days, then 1 tab PO QD x 2 days, then 1/2 tab PO QDy x 2 days 12/23/2015 04/25/2016 Inactive Klor-Con 8 mEq tablet,extended release RxNorm: 370851 T FARRUKH ONE TABLET BY MOUTH TWICE A DAY 12/20/2015 02/14/2016 Inactive alprazolam 1 mg tablet RxNorm: 364850 1 1/2 Tablet(s) PO QHS 201501/23/2016 Inactive nystatin 100,000 unit/gram topical cream RxNorm: 664806 APPLY TO AFFECTED AREA(S) TWO TIMES A DAY 11/30/2015 12/14/2015 Inactive Singulair 10 mg tablet RxNorm: 196949 TAKE ONE TABLET BY MOUTH JOSÉ Y 11/18/2015 04/25/2016 Inactive allopurinol 300 mg tablet RxNorm: 324884 1 Tablet(s) PO QD TAKE ONE TABLET BY MOUTH EVERY DAY 10/26/2015 04/22/2016 Inactive Singulair 10 mg tablet RxNorm: 790674 TAKE ONE TABLET BY MOUTH JOSÉ Y 10/26/2015 11/17/2015 Inactive duloxetine 60 mg capsule,delayed release RxNorm: 265008 1 Capsu le(s) PO QD 10/26/2015 04/22/2016 Inactive triamterene 75 mg-hydrochlorothiazide 50 mg tablet RxNorm: 3 48423 1 Tablet(s) PO QD 10/26/2015 11/14/2016 Inactive potassium chloride ER 20 mEq tablet,extended release(part/cr yst) RxNorm: 180161 2 Tablet(s) PO BID 10/26/2015 02/14/2016 Inactive Lipitor 10 mg tablet RxNorm: 173356 1 Tablet(s) PO QHS 10/26/2015 Inactive amlodipine 5 mg-benazepril 20 mg capsule RxNorm: 522847 1 Capsule(s) PO QHS replaces amlodopine 10/26/2015 04/22/2016 Inactive Bystolic 10 mg tablet RxNorm: 473152 1 Tablet(s) PO QHS 10/26/2015 Inactive amlodipine 5 mg-benazepril 20 mg capsule RxNorm: 096915 1 Capsule(s) PO QHS replaces amlodopine 10/06/2015 10/25/2015 Inactive amlodipine 5 mg tablet RxNorm: 985045 1 Tablet(s) PO QHS 09/30/2015 0 04/25/2016 Inactive metolazone 2.5 mg tablet RxNorm: 869724 TAKE ONE TABLET BY MOUTH DAILY NEEDED FOR EDEMA 09/30/2015 01/21/2019 Inactive duloxetine 60 mg capsule,delayed release RxNorm: 537949 1 Capsu le(s) PO QD 09/30/2015 10/25/2015 Inactive cephalexin 500 mg capsule RxNorm: 439391 1 Capsule(s) PO BID 201509/23/2015 Inactive mupirocin 2 % topical ointment RxNorm: 688775 TOP twice daily to affected areas of face and neck 09/14/2015 02/20/2016 Inactive baclofen 20 mg tablet RxNorm: 259184 1 Tablet(s) PO TID as needed for muscle spasm 09/01/2015 11/14/2016 Inactive clonidine HCl 0.1 mg tablet RxNorm: 951099 1 Tablet(s) PO QID 09/0102/14/2016 Inactive alprazolam 1 mg tablet RxNorm: 753032 1 1/2 Tablet(s) PO QHS 201409/09/2015 Inactive baclofen 20 mg tablet RxNorm: 189824 1 Tablet(s) PO TID as needed for muscle spasm 07/23/2015 09/01/2015 Inactive omeprazole 40 mg capsule,delayed release RxNorm: 682650 1 Capsu le(s) PO QD 07/23/2015 04/25/2016 Inactive alprazolam 1 mg tablet RxNorm: 172083 1 1/2 Tablet(s) PO QHS 201408/10/2015 Inactive Bystolic 10 mg tablet RxNorm: 794818 1 Tablet(s) PO BID 06/24/2015 Inactive allopurinol 300 mg tablet RxNorm: 834165 1 Tablet(s) PO QD TAKE ONE TABLET BY MOUTH EVERY DAY 06/23/2015 10/20/2015 Inactive alprazolam 1 mg tablet RxNorm: 749360 1 1/2 Tablet(s) PO QHS 201407/06/2015 Inactive clonidine HCl 0.1 mg tablet RxNorm: 999251 1 Tablet(s) PO QID 06/0209/01/2015 Inactive clonidine HCl 0.1 mg tablet RxNorm: 001337 1 Tablet(s) PO QID 06/0206/01/2015 Inactive Cymbalta 60 mg capsule,delayed release RxNorm: 576867 1 Capsule (s) PO QHS 06/02/2015 08/30/2015 Inactive Cymbalta 60 mg capsule,delayed release RxNorm: 593124 1 Capsule (s) PO QHS 06/02/2015 06/01/2015 Inactive clonidine HCl 0.1 mg tablet RxNorm: 424918 1 Tablet(s) PO TID 05/3106/01/2015 Inactive replaces 0.2mg dose metolazone 2.5 mg tablet RxNorm: 111830 TAKE ONE TABLET BY MOUTH DAILY NEEDED FOR EDEMA 05/21/2015 06/19/2015 Inactive Singulair 10 mg tablet RxNorm: 787461 TAKE ONE TABLET BY MOUTH JOSÉ Y 05/21/2015 10/17/2015 Inactive Cymbalta 30 mg capsule,delayed release RxNorm: 012814 1 Capsule (s) PO QHS 05/20/2015 11/14/2016 Inactive betamethasone valerate 0.1 % topical cream RxNorm: 001805 Appli cation TOP BID 05/10/2015 04/25/2016 Inactive Bactroban 2 % topical ointment RxNorm: 119059 Application TOP BID 0 05/10/2015 06/20/2015 Inactive baclofen 20 mg tablet RxNorm: 925122 1 Tablet(s) PO TID as needed 0 04/26/2015 07/23/2015 Inactive Lipitor 10 mg tablet RxNorm: 701922 1 Tablet(s) PO QHS 04/26/201508/2016 Inactive clonidine HCl 0.1 mg tablet RxNorm: 149694 1 Tablet(s) PO TID 04/2605/30/2015 Inactive replaces 0.2mg dose Klor-Con 8 mEq tablet,extended release RxNorm: 635101 1 Tablet( s) PO BID 04/26/2015 04/25/2016 Inactive metolazone 2.5 mg tablet RxNorm: 730579 1 Tablet(s) PO QD as ne eded for edema 04/26/2015 04/25/2015 Inactive triamterene 75 mg-hydrochlorothiazide 50 mg tablet RxNorm: 3 43852 1 Tablet(s) PO QD 04/26/2015 10/22/2015 Inactive Premarin 1.25 mg tablet RxNorm: 251695 1-2 Tablet(s) PO QD 04/26/20 15 10/22/2015 Inactive Bystolic 10 mg tablet RxNorm: 428132 1 Tablet(s) PO QAM TAKE ONE TABLET BY MOUTH EVERY MORNING 04/23/2015 06/23/2015 Inactive clonidine HCl 0.1 mg tablet RxNorm: 245430 1 Tablet(s) PO TID 03/2304/25/2015 Inactive replaces 0.2mg dose nystatin 100,000 unit/gram topical cream RxNorm: 049426 Applica tion TOP BID 03/23/2015 06/20/2015 Inactive baclofen 20 mg tablet RxNorm: 365598 1 Tablet(s) PO TID as needed 0 03/23/2015 04/25/2015 Inactive Premarin 1.25 mg tablet RxNorm: 737725 1-2 Tablet(s) PO QD 03/23/20 15 04/25/2015 Inactive Klor-Con 8 mEq tablet,extended release RxNorm: 438907 1 Tablet( s) PO BID 03/23/2015 04/25/2015 Inactive cefdinir 300 mg capsule RxNorm: 129099 2 Capsule(s) PO QD 03/16/2015 03/25/2015 Inactive baclofen 20 mg tablet RxNorm: 276288 1 Tablet(s) PO TID as needed 0 03/02/2015 03/22/2015 Inactive allopurinol 300 mg tablet RxNorm: 689780 1 Tablet(s) PO QD TAKE ONE TABLET BY MOUTH EVERY DAY 02/22/2015 05/22/2015 Inactive Klor-Con M20 mEq tablet,extended release RxNorm: 338813 2 Tablet(s) PO BID to use with lasix 02/22/2015 06/20/2015 Inactive clonidine HCl 0.1 mg tablet RxNorm: 205917 1 Tablet(s) PO TID 02/1903/22/2015 Inactive replaces 0.2mg dose Lipitor 10 mg tablet RxNorm: 606196 1 Tablet(s) PO QHS 01/20/201506/2015 Inactive Lipitor 10 mg tablet RxNorm: 603602 1 Tablet(s) PO QHS 01/20/2015 Inactive Singulair 10 mg tablet RxNorm: 192948 1 Tablet(s) PO QD TAKE ONE TABLET BY MOUTH EVERY DAY 11/20/2014 05/18/2015 Inactive Lipitor 10 mg tablet RxNorm: 460302 1 Tablet(s) PO QHS 11/20/201408/2015 Inactive allopurinol 300 mg tablet RxNorm: 162005 1 Tablet(s) PO QD TAKE ONE TABLET BY MOUTH EVERY DAY 11/20/2014 02/16/2015 Inactive Bystolic 10 mg tablet RxNorm: 318076 1 Tablet(s) PO QAM TAKE ONE TABLET BY MOUTH EVERY MORNING 11/20/2014 04/22/2015 Inactive Klor-Con 8 mEq tablet,extended release RxNorm: 839081 1 Tablet( s) PO BID 11/20/2014 02/17/2015 Inactive baclofen 20 mg tablet RxNorm: 917718 1 Tablet(s) PO TID as needed 0 11/20/2014 01/21/2019 Inactive baclofen 20 mg tablet RxNorm: 706793 1 Tablet(s) PO TID as needed 0 10/27/2014 11/19/2014 Inactive baclofen 20 mg tablet RxNorm: 756117 1 Tablet(s) PO TID as needed 0 10/26/2014 03/01/2015 Inactive allopurinol 300 mg tablet RxNorm: 779599 1 Tablet(s) PO QD TAKE ONE TABLET BY MOUTH EVERY DAY 10/26/2014 11/20/2014 Inactive Bystolic 10 mg tablet RxNorm: 478750 1 Tablet(s) PO QAM TAKE ONE TABLET BY MOUTH EVERY MORNING 10/26/2014 11/20/2014 Inactive clonidine HCl 0.1 mg tablet RxNorm: 557569 1 Tablet(s) PO TID 09/2805/27/2019 Inactive replaces 0.2mg dose clonidine HCl 0.1 mg tablet RxNorm: 180796 1 Tablet(s) PO TID 09/2802/18/2015 Inactive replaces 0.2mg dose baclofen 20 mg tablet RxNorm: 272104 1 Tablet(s) PO TID as needed 1 11/01/2013 08/30/2014 Inactive Lipitor 10 mg tablet RxNorm: 082617 1 Tablet(s) PO QHS 08/31/2014 Inactive baclofen 20 mg tablet RxNorm: 369804 1 Tablet(s) PO TID as needed 1 11/01/2013 10/26/2014 Inactive triamterene 75 mg-hydrochlorothiazide 50 mg tablet RxNorm: 3 13115 1 Tablet(s) PO QD 08/31/2014 02/26/2015 Inactive Klor-Con 8 mEq tablet,extended release RxNorm: 262684 1 Tablet( s) PO BID 08/31/2014 11/20/2014 Inactive baclofen 20 mg tablet RxNorm: 973196 1 Tablet(s) PO TID as needed 1 09/30/2013 10/25/2014 Inactive baclofen 20 mg tablet RxNorm: 872876 1 Tablet(s) PO TID as needed 1 09/30/2013 08/31/2014 Inactive omeprazole 40 mg capsule,delayed release RxNorm: 998471 1 Capsu le(s) PO QD 07/21/2014 07/23/2015 Inactive Flonase 50 mcg/actuation nasal spray,suspension RxNorm: 8963 23 1 [place] NASAL BID 07/15/2014 04/09/2017 Inactive hydrocodone 10 mg-acetaminophen 325 mg tablet RxNorm: 229022 1-2 Tablet(s) QID as needed for pain TAKE ONE TO TWO TABLETS BY MOUTH FOUR TIMES A DAY . MUST LAST 30 DAYS 06/30/2014 07/27/2014 Inactive (Response to an electronic controlled substance refill request - RxReferenceNumber: [id number]) baclofen 20 mg tablet RxNorm: 428889 1 Tablet(s) PO TID as needed 1 07/31/2014 Inactive Singulair 10 mg tablet RxNorm: 577704 1 Tablet(s) PO QD TAKE ONE TABLET BY MOUTH EVERY DAY 05/25/2014 11/20/2014 Inactive Bystolic 10 mg tablet RxNorm: 211358 TAKE ONE TABLET BY MOUTH E VERY MORNING 05/25/2014 09/21/2014 Inactive allopurinol 300 mg tablet RxNorm: 448036 1 Tablet(s) PO QD TAKE ONE TABLET BY MOUTH EVERY DAY 05/25/2014 10/21/2014 Inactive baclofen 20 mg tablet RxNorm: 843261 1 Tablet(s) PO TID as needed 0 05/25/2014 06/29/2014 Inactive allopurinol 300 mg tablet RxNorm: 778047 TAKE ONE TABLET BY LOPEZ TH EVERY DAY 05/25/2014 09/21/2014 Inactive Singulair 10 mg tablet RxNorm: 745339 1 Tablet(s) PO QD TAKE ONE TABLET BY MOUTH EVERY DAY 05/25/2014 05/24/2014 Inactive Bystolic 10 mg tablet RxNorm: 524023 1 Tablet(s) PO QAM TAKE ONE TABLET BY MOUTH EVERY MORNING 05/25/2014 10/21/2014 Inactive metolazone 2.5 mg tablet RxNorm: 585506 1 Tablet(s) PO QD as ne eded for edema 05/18/2014 04/25/2015 Inactive Lasix 40 mg tablet RxNorm: 465596 1 Tablet(s) PO QAM s ashley take potassium supplementation with this medication 05/14/2014 05/17/2014 Inactive hydrocodone 10 mg-acetaminophen 325 mg tablet RxNorm: 171136 1-2 Tablet(s) QID as needed for pain TAKE ONE TO TWO TABLETS BY MOUTH FOUR TIMES A DAY . MUST LAST 30 DAYS 05/07/2014 06/05/2014 Inactive (Response to an electronic controlled substance refill request - RxReferenceNumber: [id number]) alprazolam 0.5 mg tablet RxNorm: 150396 TAKE ONE TABLET BY MOUTH TWICE A DAY , MUST LAST 30 DAYS 05/07/2014 05/22/2016 Inactive (Response to a n electronic controlled substance refill request - RxReferenceNumber: [id number]) diclofenac sodium 75 mg tablet,delayed release RxNorm: 48336 6 1 Tablet(s) PO BID for pain 04/24/2014 07/20/2014 Inactive Celebrex 200 mg capsule RxNorm: 787103 TAKE ONE CAPSULE BY MOUT H EVERY DAY 04/24/2014 07/20/2014 Inactive alprazolam 0.5 mg tablet RxNorm: 697593 TAKE ONE TABLET BY MOUTH TWICE A DAY , MUST LAST 30 DAYS 03/24/2014 04/22/2014 Inactive (Response to a n electronic controlled substance refill request - RxReferenceNumber: [id number]) diclofenac sodium 75 mg tablet,delayed release RxNorm: 00404 6 1 Tablet(s) PO BID for pain 03/24/2014 04/24/2014 Inactive clonidine HCl 0.1 mg tablet RxNorm: 196173 1 Tablet(s) PO TID 03/2409/28/2014 Inactive replaces 0.2mg dose Klor-Con 8 mEq tablet,extended release RxNorm: 303879 1 Tablet( s) PO BID 02/26/2014 08/31/2014 Inactive diclofenac sodium 75 mg tablet,delayed release RxNorm: 74055 6 1 Tablet(s) PO BID for pain 02/25/2014 03/24/2014 Inactive hydrocodone 10 mg-acetaminophen 325 mg tablet RxNorm: 633044 1-2 Tablet(s) QID as needed for pain TAKE ONE TO TWO TABLETS BY MOUTH FOUR TIMES A DAY . MUST LAST 30 DAYS 02/25/2014 03/26/2014 Inactive (Response to an electronic controlled substance refill request - RxReferenceNumber: [id number]) alprazolam 0.5 mg tablet RxNorm: 600594 Tablet(s) PO BI D as needed for anxiety TAKE ONE TABLET BY MOUTH TWICE A DAY , MUST LAST 30 DAYS 02/25/2014 Inactive (Response to an electronic controlled [place] bstance refill request - RxReferenceNumber: [id number]) [AttnRPh: Saving apply/adjudicate RxGRP:SG20 RxBIN:[id number] RxPCN: ID#:[id number]] alprazolam 0.5 mg tablet RxNorm: 591816 Tablet(s) TAKE ONE TABLET BY MOUTH TWICE A DAY , MUST LAST 30 DAYS 01/27/2014 02/24/2014 Inactive (Respo nse to an electronic controlled substance refill request - RxReferenceNumber: [id number]) [AttnRPh: Saving apply/adjudicate RxGRP:SG20 RxBIN:[id number] RxPCN:HT ID#:[id number]] hydrocodone 10 mg-acetaminophen 325 mg tablet RxNorm: 654368 1-2 Tablet(s) QID as needed for pain TAKE ONE TO TWO TABLETS BY MOUTH FOUR TIMES A DAY . MUST LAST 30 DAYS 01/27/2014 02/24/2014 Inactive (Response to an electronic controlled substance refill request - RxReferenceNumber: [id number]) alprazolam 0.5 mg tablet RxNorm: 629570 TAKE ONE TABLET BY MOUTH TWICE A DAY , MUST LAST 30 DAYS 01/27/2014 01/26/2014 Inactive (Response to a n electronic controlled substance refill request - RxReferenceNumber: [id number]) Premarin 1.25 mg tablet RxNorm: 794908 1-2 Tablet(s) PO QD 01/28/20 14 07/25/2014 Inactive alprazolam 0.5 mg tablet RxNorm: 972337 TAKE ONE TABLET BY MOUTH TWICE A DAY , MUST LAST 30 DAYS 01/27/2014 01/27/2014 Inactive (Response to a n electronic controlled substance refill request - RxReferenceNumber: [id number]) hydrocodone 10 mg-acetaminophen 325 mg tablet RxNorm: 281372 TAKE ONE TO TWO TABLETS BY MOUTH FOUR TIMES A DAY . MUST LAST 30 DAYS 01/27/20142013 Inactive (Response to an electronic controlled [place] bstance refill request - RxReferenceNumber: [id number]) Celebrex 200 mg capsule RxNorm: 914028 1 Capsule(s) PO QD TAKE ONE CAPSULE BY MOUTH EVERY DAY 12/29/2013 04/27/2014 Inactive hydrocodone 10 mg-acetaminophen 325 mg tablet RxNorm: 465735 1-2 Tablet(s) PO QID as needed for severe pain 12/29/2013 01/27/2014 Inactive allopurinol 300 mg tablet RxNorm: 106456 1 Tablet(s) PO QD TAKE ONE TABLET BY MOUTH EVERY DAY 12/29/2013 05/24/2014 Inactive alprazolam 0.5 mg tablet RxNorm: 576768 TAKE ONE TABLET BY MOUTH TWICE A DAY , MUST LAST 30 DAYS 12/29/2013 01/27/2014 Inactive (Response to a n electronic controlled substance refill request - RxReferenceNumber: [id number]) Celebrex 200 mg capsule RxNorm: 103367 1 Capsule(s) PO QD TAKE ONE CAPSULE BY MOUTH EVERY DAY 12/29/2013 12/29/2013 Inactive Bystolic 10 mg tablet RxNorm: 093600 1 Tablet(s) PO QAM TAKE ONE TABLET BY MOUTH EVERY MORNING 12/29/2013 05/24/2014 Inactive Bystolic 10 mg tablet RxNorm: 731792 1 Tablet(s) PO QAM TAKE ONE TABLET BY MOUTH EVERY MORNING 12/29/2013 12/29/2013 Inactive Singulair 10 mg tablet RxNorm: 104372 1 Tablet(s) PO QD TAKE ONE TABLET BY MOUTH EVERY DAY 12/29/2013 05/25/2014 Inactive hydrocodone 10 mg-acetaminophen 325 mg tablet RxNorm: 040802 TAKE ONE TO TWO TABLETS BY MOUTH FOUR TIMES A DAY . MUST LAST 30 DAYS 12/29/20132013 Inactive (Response to an electronic controlled [place] bstance refill request - RxReferenceNumber: [id number]) Trazadone 75mg Tablet RxNorm: 1 Tablet(s) PO QHS as needed 03/23/2014 Inactive Trazadone 75mg Tablet RxNorm: 1 Tablet(s) PO QHS 12/24/20132014 Inactive Soma 350 mg tablet RxNorm: 526256 Tablet(s) PO TAKE ON E TABLET BY MOUTH THREE TIMES A DAY NEEDED FOR MUSCLE SPASMS. THIS MUST LAST 30 DAYS BETWEEN REFILLS. 12/10/2013 12/22/2013 Inactive (Appended: Cont rolled substance eRx refill - RxReferenceNumber: [id number]) diclofenac sodium 75 mg tablet,delayed release RxNorm: 55562 6 1 Tablet(s) PO BID for pain 12/10/2013 02/24/2014 Inactive allopurinol 300 mg tablet RxNorm: 126404 1 Tablet(s) PO QD 11/20/19 14 12/29/2013 Inactive alprazolam 0.5 mg tablet RxNorm: 526333 2 Tablet(s) PO BID 11/13/19 14 12/29/2013 Inactive prn clonidine 0.1 mg tablet RxNorm: 679446 1 Tablet(s) PO TID 11/12/2013 02/09/2014 Inactive replaces 0.2mg dose Klor-Con M20 mEq tablet,extended release RxNorm: 300448 2 Tablet(s) PO BID to use with lasix 11/12/2013 05/10/2014 Inactive Singulair 10 mg tablet RxNorm: 806114 1 Tablet(s) PO QD 11/12/2013 Inactive hydrocodone 10 mg-acetaminophen 325 mg tablet RxNorm: 677594 1-2 Tablet(s) PO QID as needed for severe pain 11/12/2013 12/28/2013 Inactive Bystolic 10 mg tablet RxNorm: 007605 1 Tablet(s) PO QAM 11/12/2013 Inactive Soma 350 mg tablet RxNorm: 816559 Tablet(s) PO TAKE ON E TABLET BY MOUTH THREE TIMES A DAY NEEDED FOR MUSCLE SPASMS. THIS MUST LAST 30 DAYS BETWEEN REFILLS. 10/13/2013 12/10/2013 Inactive (Appended: Cont rolled substance eRx refill - RxReferenceNumber: [id number]) hydrocodone 10 mg-acetaminophen 325 mg tablet RxNorm: 936709 1-2 Tablet(s) PO QID as needed for severe pain 10/03/2013 11/11/2013 Inactive diclofenac sodium 75 mg tablet,delayed release RxNorm: 99732 8 1 Tablet(s) PO BID for pain 09/11/2013 12/10/2013 Inactive alprazolam 0.5 mg tablet RxNorm: 118901 1 Tablet(s) PO BID May refill on 04/26/13 09/01/2013 10/30/2013 Inactive prn hydrocodone 10 mg-acetaminophen 325 mg tablet RxNorm: 399890 1-2 Tablet(s) PO QID as needed for severe pain 09/01/2013 10/02/2013 Inactive triamterene 75 mg-hydrochlorothiazide 50 mg tablet RxNorm: 3 50549 1 Tablet(s) PO QD 08/04/2013 08/31/2014 Inactive cyclobenzaprine 10 mg tablet RxNorm: 011019 1 Tablet(s) PO TID prn spasm 08/04/2013 08/13/2013 Inactive clonidine 0.1 mg tablet RxNorm: 659806 1 Tablet(s) PO TID 08/04/2013 11/11/2013 Inactive replaces 0.2mg dose cyclobenzaprine 10 mg tablet RxNorm: 681025 1 Tablet(s) PO TID prn spasm 07/23/2013 08/01/2013 Inactive hydrocodone 10 mg-acetaminophen 325 mg tablet RxNorm: 207204 2 1-2 Tablet(s) PO QID as needed for severe pain 06/09/2013 08/07/2013 Inactive Singulair 10 mg tablet RxNorm: 617398 1 Tablet(s) PO QD 05/29/2013 Inactive Klor-Con 8 mEq tablet,extended release RxNorm: 469110 1 Tablet( s) PO BID 05/29/2013 02/26/2014 Inactive allopurinol 300 mg tablet RxNorm: 856449 1 Tablet(s) PO QD 05/29/20 13 11/19/2013 Inactive Bystolic 10 mg tablet RxNorm: 091702 1 Tablet(s) PO QAM take one daily in the morning. 05/29/2013 11/11/2013 Inactive scopolamine 1.5 mg 72 hr Transderm Patch RxNorm: 741755 Application TD Q72H for motion sickness 05/26/2013 07/22/2013 Inactive Soma 350 mg tablet RxNorm: 742401 1 Tablet(s) PO TID as needed for spasm 05/19/2013 10/13/2013 Inactive diclofenac sodium 75 mg tablet,delayed release RxNorm: 15328 8 1 Tablet(s) PO BID for pain 05/14/2013 07/22/2013 Inactive allopurinol 300 mg tablet RxNorm: 940409 1 Tablet(s) PO QD 04/25/2005/28/2013 Inactive alprazolam 0.5 mg tablet RxNorm: 147342 1 Tablet(s) PO BID May refill on 04/26/13 04/25/2013 06/23/2013 Inactive prn Celebrex 200 mg capsule RxNorm: 462571 1 Capsule(s) PO QD 04/16/2013 12/29/2013 Inactive alprazolam 0.5 mg tablet RxNorm: 773203 1 Tablet(s) PO BID May refill on 04/26/13 04/16/2013 04/24/2013 Inactive prn Soma 350 mg tablet RxNorm: 980370 1 Tablet(s) PO TID as needed for spasm 04/16/2013 No Stop Date Active Lasix 40 mg tablet RxNorm: 884739 1 Tablet(s) PO QAM s hould take potassium supplementation with this medication 04/16/2013 06/14/2013 Inactive clonidine 0.1 mg tablet RxNorm: 653698 1 Tablet(s) PO TID 04/16/2013 08/03/2013 Inactive replaces 0.2mg dose prednisone 20 mg tablet RxNorm: 810410 1 Tablet(s) PO BID 04/16/2013 04/20/2013 Inactive diclofenac sodium 75 mg tablet,delayed release RxNorm: 98832 8 1 Tablet(s) PO BID for pain 04/14/2013 05/13/2013 Inactive hydrocodone 10 mg-acetaminophen 325 mg tablet RxNorm: 582203 2 1-2 Tablet(s) PO QID as needed for severe pain 04/14/2013 No Stop Date Active Lasix 40 mg tablet RxNorm: 691392 1 Tablet(s) PO QAM alan ramirez take potassium supplementation with this medication 03/31/2013 04/15/2013 Inactive Celebrex 200 mg capsule RxNorm: 640850 1 Capsule(s) PO QD 03/31/2013 04/15/2013 Inactive alprazolam 0.5 mg tablet RxNorm: 281197 1 Tablet(s) PO BID 03/28/20 13 04/15/2013 Inactive prn hydrocodone 10 mg-acetaminophen 325 mg tablet RxNorm: 658335 2 1-2 Tablet(s) PO QID as needed for severe pain 03/10/2013 No Stop Date Active metformin ER 500 mg 24 hr tablet,extended release RxNorm: 86 1018 1 Tablet(s) PO QD 03/06/2013 07/22/2013 Inactive clindamycin 300 mg capsule RxNorm: 772292 2 Capsule(s) PO TID 03/0503/14/2013 Inactive Zaroxolyn 2.5 mg tablet RxNorm: 220736 1 Tablet(s) PO QAM 03/05/2013 05/19/2015 Inactive amlodipine 10 mg tablet RxNorm: 273956 1 Tablet(s) PO QD 03/03/2013 0 05/25/2013 Inactive Norvasc 10 mg tablet RxNorm: 971829 1 Tablet(s) PO QD 02/28/201307/11 Inactive Celebrex 200 mg capsule RxNorm: 344229 1 Capsule(s) PO QD 02/28/2013 03/30/2013 Inactive diclofenac sodium 75 mg tablet,delayed release RxNorm: 88156 8 1 Tablet(s) PO BID for pain 02/14/2013 03/15/2013 Inactive Soma 350 mg tablet RxNorm: 355500 1 Tablet(s) PO TID as needed for spasm 02/14/2013 No Stop Date Active hydrocodone 10 mg-acetaminophen 325 mg tablet RxNorm: 933723 2 1-2 Tablet(s) PO QID as needed for severe pain 02/14/2013 No Stop Date Active Norvasc 10 mg tablet RxNorm: 891400 1 Tablet(s) PO QD 02/10/201302/09 Inactive Celebrex 200 mg capsule RxNorm: 135749 1 Capsule(s) PO QD 01/27/2013 01/26/2013 Inactive Premarin 1.25 mg tablet RxNorm: 185582 1-2 Tablet(s) PO QD 01/28/20 13 06/25/2013 Inactive alprazolam 0.5 mg tablet RxNorm: 375054 1 Tablet(s) PO BID 01/28/20 13 02/25/2013 Inactive prn amlodipine 5 mg tablet RxNorm: 756290 1 Tablet(s) PO QD 01/27/2013 Inactive Celebrex 200 mg capsule RxNorm: 003011 1 Capsule(s) PO QD 01/27/2013 02/27/2013 Inactive gabapentin 600 mg tablet RxNorm: 606795 1 Tablet(s) PO QHS 01/16/20 13 07/22/2013 Inactive Soma 350 mg tablet RxNorm: 171009 1 Tablet(s) PO TID as needed for spasm 01/15/2013 No Stop Date Active hydrocodone 10 mg-acetaminophen 325 mg tablet RxNorm: 514742 2 1-2 Tablet(s) PO QID as needed for severe pain 01/15/2013 No Stop Date Active Soma 350 mg tablet RxNorm: 564528 1 Tablet(s) PO TID as needed for spasm 01/13/2013 No Stop Date Active alprazolam 0.5 mg tablet RxNorm: 686726 1 Tablet(s) PO BID 12/31/19 13 01/26/2013 Inactive prn diclofenac sodium 75 mg tablet,delayed release RxNorm: 64569 8 1 Tablet(s) PO BID for pain 12/09/2012 01/07/2013 Inactive gabapentin 600 mg tablet RxNorm: 333201 1 Tablet(s) PO QHS 12/10/19 13 01/07/2013 Inactive hydrocodone 10 mg-acetaminophen 325 mg tablet RxNorm: 414174 2 1-2 Tablet(s) PO QID as needed for severe pain 12/02/2012 No Stop Date Active Levaquin 750 mg tablet RxNorm: 975386 1 Tablet(s) PO QD 11/21/2012 Inactive Singulair 10 mg tablet RxNorm: 272451 1 Tablet(s) PO QD 11/11/2012 Inactive clonidine 0.2 mg tablet RxNorm: 614005 1 Tablet(s) PO TID 11/11/2012 04/15/2013 Inactive alprazolam 0.5 mg tablet RxNorm: 962566 1 Tablet(s) PO BID 11/12/19 13 12/10/2012 Inactive prn Klor-Con 8 mEq tablet,extended release RxNorm: 289847 1 Tablet( s) PO BID 11/11/2012 03/04/2013 Inactive hydrocodone 10 mg-acetaminophen 325 mg tablet RxNorm: 165033 2 1-2 Tablet(s) PO QID as needed for severe pain 11/06/2012 No Stop Date Active alprazolam 0.5 mg tablet RxNorm: 796277 1 Tablet(s) PO BID 10/15/19 13 11/10/2012 Inactive prn hydrocodone-acetaminophen 10 mg-325 mg tablet RxNorm: 695639 2 1-2 Tablet(s) PO QID as needed for severe pain 10/10/2012 10/09/2012 Inactive allopurinol 300 mg tablet RxNorm: 360485 1 Tablet(s) PO QD 09/20/19 13 12/18/2012 Inactive alprazolam 0.5 mg tablet RxNorm: 760444 1 Tablet(s) PO BID 09/17/19 13 10/14/2012 Inactive prn hydrocodone-acetaminophen 10 mg-325 mg tablet RxNorm: 784853 2 1-2 Tablet(s) PO QID as needed for severe pain 08/22/2012 08/21/2012 Inactive Norvasc 10 mg tablet RxNorm: 311015 1 Tablet(s) PO QD 08/12/201201/10 Inactive Premarin 1.25 mg tablet RxNorm: 308304 1-2 Tablet(s) PO QD 07/30/20 12 12/26/2012 Inactive alprazolam 0.5 mg tablet RxNorm: 166962 1 Tablet(s) PO BID 07/29/20 12 08/27/2012 Inactive prn Klor-Con 8 mEq tablet,extended release RxNorm: 262118 1 Tablet( s) PO BID 07/29/2012 11/10/2012 Inactive hydrocodone-acetaminophen 10 mg-325 mg tablet RxNorm: 195232 2 1-2 Tablet(s) PO QID as needed for severe pain 07/29/2012 No Stop Date Active Premarin 1.25 mg tablet RxNorm: 771298 1-2 Tablet(s) PO QD 07/29/20 12 07/29/2012 Inactive clonidine 0.2 mg tablet RxNorm: 661799 1 Tablet(s) PO TID 07/29/2012 10/28/2012 Inactive ketorolac 10 mg tablet RxNorm: 594109 1 Tablet(s) PO QID prn he adache 07/18/2012 No Stop Date Active hydrocodone-acetaminophen 10 mg-325 mg tablet RxNorm: 980195 2 1-2 Tablet(s) PO QID as needed for severe pain 07/03/2012 No Stop Date Active amlodipine 5 mg tablet RxNorm: 750115 1 Tablet(s) PO QD 07/02/2012 Inactive allopurinol 300 mg tablet RxNorm: 910319 1 Tablet(s) PO QD 07/02/2009/19/2012 Inactive Celebrex 200 mg capsule RxNorm: 874244 1 Capsule(s) PO QD for j oint pain 06/26/2012 10/23/2012 Inactive diclofenac sodium 75 mg tablet,delayed release RxNorm: 61253 8 1 Tablet(s) PO BID for pain 06/19/2012 09/16/2012 Inactive hydrocodone-acetaminophen 10 mg-325 mg tablet RxNorm: 842338 2 1-2 Tablet(s) PO QID as needed for severe pain 06/10/2012 No Stop Date Active alprazolam 0.5 mg tablet RxNorm: 176008 1 Tablet(s) PO BID 06/03/20 12 07/02/2012 Inactive prn ketorolac 10 mg tablet RxNorm: 001453 1 Tablet(s) PO Q8H 05/27/2012 0 01/21/2019 Inactive as needed for headache hydrocodone-acetaminophen 10 mg-325 mg tablet RxNorm: 612503 2 1-2 Tablet(s) PO QID as needed for severe pain 05/15/2012 No Stop Date Active allopurinol 300 mg tablet RxNorm: 998127 1 Tablet(s) PO QD 05/14/20 12 06/12/2012 Inactive allopurinol 300 mg tablet RxNorm: 993770 1 Tablet(s) PO QD 05/14/2005/13/2012 Inactive amlodipine 5 mg tablet RxNorm: 432030 1 Tablet(s) PO QD 05/01/2012 Inactive amlodipine 5 mg Tab RxNorm: 520762 1 Tablet(s) PO QD 05/01/201204/30 Inactive Celebrex 200 mg capsule RxNorm: 394338 1 Capsule(s) PO QD for j oint pain 05/01/2012 06/25/2012 Inactive Singulair 10 mg tablet RxNorm: 833929 1 Tablet(s) PO QD 05/01/2012 Inactive alprazolam 0.5 mg tablet RxNorm: 266258 1 Tablet(s) PO BID 05/01/20 12 05/30/2012 Inactive prn Celebrex 200 mg Cap RxNorm: 778205 1 Capsule(s) PO QD for joint radu n 05/01/2012 04/30/2012 Inactive hydrocodone-acetaminophen 10 mg-325 mg tablet RxNorm: 595993 2 1-2 Tablet(s) PO QID as needed for severe pain 04/19/2012 No Stop Date Active Lasix 40 mg tablet RxNorm: 313267 1 Tablet(s) PO CORTEZM alan rajwinderuld take potassium supplementation with this medication 04/05/2012 06/03/2012 Inactive alprazolam 0.5 mg Tab RxNorm: 850600 1 Tablet(s) PO BID 04/05/2012 Inactive prn hydrocodone-acetaminophen 10 mg-325 mg Tab RxNorm: 6544223 1-2 Tablet(s) PO QID as needed for severe pain 03/25/2012 03/24/2012 Inactive clonidine 0.2 mg Tab RxNorm: 072643 1 Tablet(s) PO TID 03/08/2012 Inactive alprazolam 0.5 mg Tab RxNorm: 762431 1 Tablet(s) PO BID 03/08/2012 Inactive prn Soma 350 mg tablet RxNorm: 948336 1 Tablet(s) PO TID for spasm 02/0903/18/2012 Inactive clonidine 0.2 mg tablet RxNorm: 793104 1 Tablet(s) PO TID 03/08/2012 07/28/2012 Inactive Celebrex 200 mg Cap RxNorm: 393934 1 Capsule(s) PO QD for joint radu n 03/01/2012 04/29/2012 Inactive amlodipine 5 mg Tab RxNorm: 338182 1 Tablet(s) PO QD 02/26/201202/24 Inactive amlodipine 5 mg Tab RxNorm: 625299 1 Tablet(s) PO QD 02/26/201204/25 Inactive Bactroban 2 % Ointment RxNorm: 361222 Application TOP QID to sores 02/23/2012 No Stop Date Active amlodipine 2.5 mg tablet RxNorm: 466690 1 Tablet(s) PO QHS 02/20/20 12 02/25/2012 Inactive doxycycline hyclate 100 mg Cap RxNorm: 4953814 1 Capsule(s) PO BID 02/20/2012 02/29/2012 Inactive hydrocodone-acetaminophen 10 mg-325 mg Tab RxNorm: 0514848 1-2 T ablet(s) PO QID 02/08/2012 No Stop Date Active alprazolam 0.5 mg Tab RxNorm: 450091 1 Tablet(s) PO BID 02/08/2012 Inactive prn Singulair 10 mg Tab RxNorm: 786421 1 Tablet(s) PO QD 02/08/201204/30 Inactive Soma 350 mg Tab RxNorm: 284723 1 Tablet(s) PO TID for spasm 012 03/07/2012 Inactive Soma 350 mg Tab RxNorm: 530334 1 Tablet(s) PO TID for spasm 012 02/05/2012 Inactive diclofenac sodium 75 mg tablet,delayed release RxNorm: 68740 8 1 Tablet(s) PO BID for pain 02/01/2012 03/18/2012 Inactive Celebrex 200 mg Cap RxNorm: 576418 1 Capsule(s) PO QD for joint radu n 01/30/2012 02/28/2012 Inactive Lasix 40 mg Tab RxNorm: 490118 1 Tablet(s) PO QAM 01/24/2012 03/18/20 12 Inactive potassium chloride ER 20 mEq tablet,extended release(part/cr yst) RxNorm: 924908 2 Tablet(s) PO BID 01/24/2012 02/22/2012 Inactive alprazolam 0.5 mg Tab RxNorm: 563819 1 Tablet(s) PO BID 01/11/2012 Inactive prn hydrocodone-acetaminophen 10 mg-325 mg Tab RxNorm: 8537202 1-2 T ablet(s) PO QID 01/11/2012 No Stop Date Active Ambien 10 mg Tab RxNorm: 372689 1 Tablet(s) PO QHS 01/11/2012 012 Inactive Klor-Con 8 mEq Tab RxNorm: 638705 1 Tablet(s) PO BID 01/11/201201/22 Inactive diclofenac sodium 75 mg Tab, Delayed Release RxNorm: 211435 1 Tablet(s) PO BID for pain 01/10/2012 01/31/2012 Inactive Ambien 10 mg Tab RxNorm: 346922 1 Tablet(s) PO QHS 12/11/2011 012 Inactive alprazolam 0.5 mg Tab RxNorm: 139623 1 Tablet(s) PO BID 12/11/2011 Inactive prn hydrocodone 10 mg-acetaminophen 325 mg tablet RxNorm: 048247 1-2 Tablet(s) PO TID 11/28/2011 No Stop Date Active as needed for pa in - Previous quantity #240, will start dosing for #180 in April 2011 per Doctor Td. Ambien 10 mg Tab RxNorm: 123017 1 Tablet(s) PO QHS 11/09/2011 012 Inactive alprazolam 0.5 mg Tab RxNorm: 692808 1 Tablet(s) PO BID 11/09/2011 Inactive prn hydrocodone-acetaminophen 10 mg-325 mg Tab RxNorm: 2731529 1-2 T ablet(s) PO TID 11/06/2011 No Stop Date Active as needed for pain - Previous quantity #240, will start dosing for #180 in April 2011 per Doctor Td. Singulair 10 mg Tab RxNorm: 749876 1 Tablet(s) PO QD 10/13/201110/12 Inactive Singulair 10 mg Tab RxNorm: 648500 1 Tablet(s) PO QD 10/13/201102/06 Inactive hydrocodone-acetaminophen 10 mg-325 mg Tab RxNorm: 6377252 1-2 T ablet(s) PO TID 10/10/2011 10/09/2011 Inactive as needed for pain - Previous quantity #240, will start dosing for #180 in April 2011 per Doctor Td. hydrocodone-acetaminophen 10 mg-325 mg Tab RxNorm: 1031059 1-2 T ablet(s) PO TID 10/09/2011 No Stop Date Active as needed for pain - Previous quantity #240, will start dosing for #180 in April 2011 per Doctor Td. Klor-Con 8 mEq Tab RxNorm: 616814 1 Tablet(s) PO BID 10/02/201101/09 Inactive triamterene 75 mg-hydrochlorothiazide 50 mg tablet RxNorm: 3 05447 1 Tablet(s) PO QD 09/14/2011 03/06/2013 Inactive Ambien 10 mg Tab RxNorm: 545197 1 Tablet(s) PO QHS 09/14/2011 012 Inactive hydrocodone-acetaminophen 10 mg-325 mg Tab RxNorm: 0981435 1-2 T ablet(s) PO TID 09/14/2011 No Stop Date Active as needed for pain - Previous quantity #240, will start dosing for #180 in April 2011 per Doctor Td. alprazolam 0.5 mg Tab RxNorm: 424011 1 Tablet(s) PO BID 09/14/2011 Inactive prn Zithromax 500 mg Tab RxNorm: 850581 1 Tablet(s) PO QD 09/13/201109/10 Inactive prednisone 20 mg Tab RxNorm: 195822 1 Tablet(s) PO BID 08/31/2011 Inactive Ambien 10 mg Tab RxNorm: 203340 1 Tablet(s) PO QHS 08/17/2011 011 Inactive hydrocodone-acetaminophen 10 mg-325 mg Tab RxNorm: 1952783 1-2 T ablet(s) PO TID 08/17/2011 No Stop Date Active as needed for pain - Previous quantity #240, will start dosing for #180 in April 2011 per Doctor Td. clonidine 0.2 mg Tab RxNorm: 119566 1 Tablet(s) PO TID 08/17/201112/2011 Inactive Ambien 10 mg Tab RxNorm: 470926 1 Tablet(s) PO QHS 08/17/2011 019 Inactive alprazolam 0.5 mg Tab RxNorm: 183732 1 Tablet(s) PO BID 08/17/2011 Inactive prn hydrocodone-acetaminophen 10 mg-325 mg Tab RxNorm: 2690683 1-2 T ablet(s) PO TID 08/17/2011 08/16/2011 Inactive as needed for pain - Previous quantity #240, will start dosing for #180 in April 2011 per Doctor Td. Singulair 10 mg Tab RxNorm: 932222 1 Tablet(s) PO QD 08/17/201108/16 Inactive Klor-Con 8 mEq Tab RxNorm: 329117 1 Tablet(s) PO QD 08/17/20112011 Inactive alprazolam 0.5 mg Tab RxNorm: 826058 1 Tablet(s) PO BID 07/20/2011 Inactive prn Ambien 10 mg Tab RxNorm: 631907 1 Tablet(s) PO QHS 07/20/2011 012 Inactive Singulair 10 mg Tab RxNorm: 293705 1 Tablet(s) PO QD 07/20/201107/19 Inactive Premarin 1.25 mg tablet RxNorm: 677178 2 Tablet(s) PO QD 07/20/2011 0 01/21/2019 Inactive Premarin 1.25 mg tablet RxNorm: 869563 1-2 Tablet(s) PO QD 07/20/20 11 12/16/2011 Inactive Premarin 1.25 mg Tab RxNorm: 757428 1-2 Tablet(s) PO QD 07/06/2011 Inactive alprazolam 0.5 mg Tab RxNorm: 751131 1 Tablet(s) PO BID 06/22/2011 Inactive prn alprazolam 0.5 mg Tab RxNorm: 165861 1 Tablet(s) PO BID 06/22/2011 Inactive prn Premarin 1.25 mg Tab RxNorm: 167727 1 Tablet(s) PO QD m ay do 90 day fill if desired 06/22/2011 07/05/2011 Inactive hydrocodone-acetaminophen 10 mg-325 mg Tab RxNorm: 6508726 1-2 T ablet(s) PO TID 06/22/2011 No Stop Date Active as needed for pain - Previous quantity #240, will start dosing for #180 in April 2011 per Doctor Td. clonidine 0.2 mg Tab RxNorm: 281430 1 Tablet(s) PO TID 05/25/201103/2011 Inactive triamterene-hydrochlorothiazide 75 mg-50 mg Tab RxNorm: 3108 18 1 Tablet(s) PO QD 05/25/2011 09/13/2011 Inactive alprazolam 0.5 mg Tab RxNorm: 244264 1 Tablet(s) PO BID 05/25/2011 Inactive prn hydrocodone-acetaminophen 10 mg-325 mg Tab RxNorm: 9642772 1-2 T ablet(s) PO TID 05/25/2011 No Stop Date Active as needed for pain - Previous quantity #240, will start dosing for #180 in April 2011 per Doctor Td. Robaxin-750 750 mg Tab RxNorm: 716232 2 Tablet(s) PO QHS 05/22/2011 1 Inactive prn spasm hydrocodone-acetaminophen 10 mg-325 mg Tab RxNorm: 9050102 1-2 T ablet(s) PO TID 04/26/2011 No Stop Date Active as needed for pain - Previous quantity #240, will start dosing for #180 in April 2011 per Doctor Td. alprazolam 0.5 mg Tab RxNorm: 449155 1 Tablet(s) PO BID 04/25/2011 Inactive prn Klor-Con 8 mEq Tab RxNorm: 947841 1 Tablet(s) PO QD 03/30/20112010 Inactive Klor-Con 8 mEq Tab RxNorm: 422051 1 Tablet(s) PO QD 03/29/20112010 Inactive hydrocodone-acetaminophen 10 mg-325 mg Tab RxNorm: 9170271 1-2 T ablet(s) PO TID 03/20/2011 04/25/2011 Inactive as needed for pain - Previous quantity #240, will start dosing for #180 in April 2011 per Doctor Td. alprazolam 0.5 mg Tab RxNorm: 429743 1 Tablet(s) PO BID prn 011 03/30/2011 Inactive Ambien 10 mg Tab RxNorm: 014201 1 Tablet(s) PO QHS 03/01/2011 011 Inactive cyclobenzaprine 10 mg Tab RxNorm: 835688 1 Tablet(s) PO TID 011 03/18/2012 Inactive cyclobenzaprine 10 mg Tab RxNorm: 810623 1 Tablet(s) PO TID 011 01/08/2011 Inactive cyclobenzaprine 10 mg Tab RxNorm: 060057 1 Tablet(s) PO TID 011 12/20/2010 Inactive terbinafine 250 mg Tab RxNorm: 610116 1 Tablet(s) PO QD 12/12/2010 Inactive triamterene-hydrochlorothiazide 75 mg-50 mg Tab RxNorm: 3108 18 1 Tablet(s) PO QD 12/07/2010 06/04/2011 Inactive Klor-Con 8 8 mEq Tab RxNorm: 484171 1 Tablet(s) PO QD 12/07/201001/08 Inactive Premarin 1.25 mg Tab RxNorm: 718449 2 Tablet(s) PO QD 12/07/201001/08 Inactive clonidine 0.2 mg Tab RxNorm: 467679 1 Tablet(s) PO TID 12/07/2010 Inactive hydrocodone-acetaminophen 7.5 mg-650 mg Tab RxNorm: 473723 1 Ta blet(s) PO Q4H 12/05/2010 01/21/2019 Inactive hydrocodone-acetaminophen 7.5 mg-650 mg Tab RxNorm: 864086 1 Ta blet(s) PO Q4H 10/26/2010 11/14/2010 Inactive hydrocodone-acetaminophen 7.5 mg-650 mg Tab RxNorm: 772946 1 Ta blet(s) PO Q4H 10/13/2010 10/25/2010 Inactive hydrocodone-acetaminophen 7.5 mg-650 mg Tab RxNorm: 903820 1 Ta blet(s) PO Q4H 09/15/2010 09/12/2010 Inactive alprazolam 0.5 mg Tab RxNorm: 364600 1 Tablet(s) PO BID prn 011 09/12/2010 Inactive terbinafine 250 mg Tab RxNorm: 821794 1 Tablet(s) PO QD 09/05/2010 Inactive hydrocodone-acetaminophen 7.5 mg-650 mg Tab RxNorm: 259948 1 Ta blet(s) PO Q4H 08/29/2010 09/17/2010 Inactive alprazolam 0.5 mg Tab RxNorm: 553949 1 Tablet(s) PO BID prn 010 09/27/2010 Inactive alprazolam 0.5 mg Tab RxNorm: 153793 1 Tablet(s) PO BID prn 09/06/2010 Inactive Klor-Con 8 mEq Tab RxNorm: 542958 1 Tablet(s) PO QD 08/08/20102010 Inactive hydrocodone-acetaminophen 7.5 mg-650 mg Tab RxNorm: 335627 1 Ta blet(s) PO Q4H 08/08/2010 08/27/2010 Inactive Ambien 10 mg Tab RxNorm: 033607 1 Tablet(s) PO QHS 08/08/2010 Inactive clonidine 0.2 mg Tab RxNorm: 629177 1 Tablet(s) PO TID 08/08/2010 Inactive Premarin 1.25 mg Tab RxNorm: 103146 2 Tablet(s) PO QD 08/08/201009/12 Inactive Ambien 10 mg Tab RxNorm: 837272 1 Tablet(s) PO QHS 07/18/2010 Inactive alprazolam 0.5 mg Tab RxNorm: 566800 1 Tablet(s) PO BID prn 08/07/2010 Inactive hydrocodone-acetaminophen 7.5 mg-650 mg Tab RxNorm: 270303 1 Ta blet(s) PO Q4H 07/12/2010 07/31/2010 Inactive clonidine 0.2 mg Tab RxNorm: 106579 1 Tablet(s) PO TID 06/20/2010 Inactive terbinafine 250 mg Tab RxNorm: 766020 1 Tablet(s) PO QD 05/24/2010 Inactive Clonidine 0.2 mg Tab RxNorm: 473956 1 Tablet(s) PO TID 05/24/201006/2010 Inactive Ambien 10 mg Tab RxNorm: 933273 1 Tablet(s) PO QHS 05/24/2010 010 Inactive alprazolam 0.5 mg Tab RxNorm: 454723 1 Tablet(s) PO BID 05/24/2010 Inactive Klor-Con 8 mEq Tab RxNorm: 341201 1 Tablet(s) PO QD 05/24/20102009 Inactive alprazolam 0.5 mg Tab RxNorm: 151813 2 Tablet(s) PO QD prn 05/24/2007/17/2010 Inactive triamterene-hydrochlorothiazide 75 mg-50 mg Tab RxNorm: 3108 18 1 Tablet(s) PO QD 05/24/2010 11/19/2010 Inactive Ambien 10 mg Tab RxNorm: 999347 1 Tablet(s) PO QHS 05/23/2010 010 Inactive Alprazolam 0.5 mg Tab RxNorm: 478031 2 Tablet(s) PO QD prn 05/23/2005/23/2010 Inactive Premarin 1.25 mg Tab RxNorm: 189678 2 Tablet(s) PO QD 05/19/201007/12 Inactive Hydrocodone-Acetaminophen 7.5 mg-650 mg Tab RxNorm: 966335 1 Ta blet(s) PO Q4H 05/19/2010 03/20/2011 Inactive Prednisone 20 mg Tab RxNorm: 142274 1 Tablet(s) PO BID 05/17/2010 Inactive Prednisone 20 mg Tab RxNorm: 476230 1 Tablet(s) PO BID 05/06/201001/2010 Inactive Premarin 1.25 mg Tab RxNorm: 535087 Tablet(s) PO 2 M-W-F, and 1 Vn-Bm-Cjh-Sun 05/05/2010 08/02/2010 Inactive Premarin 1.25 mg Tab RxNorm: 306034 Tablet(s) PO 2 M-W-F, and 1 Hw-Cz-Ogw-Sun 05/04/2010 05/04/2010 Inactive Premarin 1.25 mg Tab RxNorm: 817444 Tablet(s) PO 2 M-W-F, and 1 Yn-Ph-KmaSun 05/04/2010 05/03/2010 Inactive Prednisone 20 mg Tab RxNorm: 626926 1 Tablet(s) PO BID 04/27/2010 Inactive Alprazolam 0.5 mg Tab RxNorm: 639738 2 Tablet(s) PO QD prn 04/26/20 10 05/22/2010 Inactive Clindamycin 300 mg Cap RxNorm: 706871 2 Capsule(s) PO TID 04/05/2010 04/18/2010 Inactive Terbinafine 250 mg Tab RxNorm: 298928 1 Tablet(s) PO QD 04/04/2010 Inactive Hydrocodone-Acetaminophen 7.5 mg-650 mg Tab RxNorm: 628635 1 Ta blet(s) PO Q4H 03/30/2010 04/18/2010 Inactive Avelox 400 mg Tab RxNorm: 635416 1 Tablet(s) PO QD 03/09/2010 010 Inactive Hydrocodone-Acetaminophen 7.5 mg-650 mg Tab RxNorm: 590169 1 Ta blet(s) PO Q4H 03/08/2010 03/27/2010 Inactive Alprazolam 0.5 mg Tab RxNorm: 570559 2 Tablet(s) PO QD prn 03/08/20 10 04/25/2010 Inactive Klor-Con 8 mEq Tab RxNorm: 493188 1 Tablet(s) PO QD when takes lasi x 03/07/2010 09/29/2019 Inactive Premarin 1.25 mg Tab RxNorm: 818590 1 Tablet(s) PO QD 03/03/201003/11 Inactive Alprazolam 0.5 mg Tab RxNorm: 826531 1 Tablet(s) PO BID PRN 010 No Stop Date Active triamterene-hydrochlorothiazide 75 mg-50 mg Tab RxNorm: 3108 18 1 Tablet(s) PO QD 02/09/2010 02/03/2011 Inactive Hydrocodone-Acetaminophen 10 mg-750 mg Tab RxNorm: 074684 1 Tablet(s) PO Q4H PRN 02/09/2010 03/20/2011 Inactive Clonidine 0.2 mg Tab RxNorm: 978905 1 Tablet(s) PO TID 01/13/201009/2009 Inactive Alprazolam 0.5 mg Tab RxNorm: 342954 1 Tablet(s) PO BID PRN 010 01/12/2010 Inactive Hydrocodone-Acetaminophen 10 mg-750 mg Tab RxNorm: 767228 1 Tablet(s) PO Q4H PRN 01/13/2010 01/12/2010 Inactive ANGELIQ 1 mg-0.5 mg Tab RxNorm: 9163787 1 Tablet(s) PO QD 12/27/2009 01/23/2010 Inactive Lasix 40 mg Tab RxNorm: 225216 1 Tablet(s) PO QAM 12/14/2009 06/11/20 10 Inactive Vitamin B12 1000mcg Tablet RxNorm: 1 Tablet(s) PO QD No Start Date Active cyclobenzaprine 10 mg tablet RxNorm: 471653 1 Tablet(s) PO TID as needed DO NOT USE WITH BACLOFEN No Start Date Active Vitamin D 5,000 unit Tab RxNorm: 1 Tablet(s) PO QD No Start Date Active vitamin E (dl, acetate) 400 unit Cap RxNorm: 405768 1 Capsule(s ) PO QD No Start Date Active Benadryl 25 mg Cap RxNorm: 9245169 Capsule(s) PO PRN No Start Date Inactive amitriptyline 100 mg tablet RxNorm: 235948 1 Tablet(s) PO QHS No St art Date 11/27/2016 Inactive Zithromax Z-Dustin 250 mg tablet RxNorm: 889939 Tablet(s) PO as di rected No Start Date 07/22/2013 Inactive Klor-Con 8 mEq tablet,extended release RxNorm: 505051 1 Tablet( s) PO BID No Start Date 07/28/2012 Inactive scopolamine 1.5 mg 72 hr Transderm Patch RxNorm: 744568 Application TD Q72H for motion sickness No Start Date 05/25/2013 Inactive Klonopin 1 mg tablet RxNorm: 121074 1-2 Tablet(s) PO QHS as nee ded for sleep No Start Date 06/20/2015 Inactive Klor-Con M20 mEq tablet,extended release RxNorm: 288797 2 Tablet(s) PO BID to use with lasix No Start Date 11/11/2013 Inactive Bystolic 5 mg tablet RxNorm: 432523 1 Tablet(s) PO QD No Start Date 1 Inactive Bystolic 10 mg tablet RxNorm: 127281 1 Tablet(s) PO BID No Start Da te 07/06/2015 Inactive Premarin 1.25 mg Tab RxNorm: 783568 Tablet(s) PO 2 -W-, and 1 My-Cz-Dhf-Sun No Start Date 05/03/2010 Inactive baclofen 20 mg tablet RxNorm: 153364 1 Tablet(s) PO TID as needed for muscle spasm No Start Date 07/22/2015 Inactive hydrocodone-acetaminophen 7.5 mg-650 mg Tab RxNorm: 479873 1 Tablet(s) PO Q4H as needed for pain No Start Date 03/20/2011 Inactive albuterol sulfate 1.25 mg/3 mL Neb Solution RxNorm: 819039 1 Unit Dose INH Q4H 2boxes No Start Date 09/06/2015 Inactive Butrans 20 mcg/hour Transderm Patch RxNorm: 946584 1 TD WEEKLY apply to skin weekly after removing previous. No Start Date 07/22/2013 Inactive Medrol (Dustin) 4 mg tablets in a dose pack RxNorm: 551586 Tablet(s) PO As Directed No Start Date 07/30/2016 Inactive hydrocodone-acetaminophen 10 mg-325 mg Tab RxNorm: 2370527 1-2 Tablet(s) PO TID as needed for pain No Start Date 03/19/2011 Inactive Klonopin 1 mg tablet RxNorm: 626316 1 Tablet(s) PO QHS No Start Date 02/28/2016 Inactive honey topical RxNorm: topical No Start Date 06/16/2018 Inactive Clonidine 0.2 mg Tab RxNorm: 461928 1 Tablet(s) PO TID No Start Date 01/12/2010 Inactive ketorolac 10 mg tablet RxNorm: 399691 1 Tablet(s) PO Q8H No Start D ate 03/18/2012 Inactive as needed for headache Singulair 10 mg Tab RxNorm: 008668 1 Tablet(s) PO QD No Start Date Inactive Premarin 1.25 mg Tab RxNorm: 808182 1 Tablet(s) PO QD No Start Date 1 Inactive Flonase 50 mcg/Actuation Nasal [place] RxNorm: 7106270 1 [place] AL BID No Start Date 03/18/2012 Inactive Terbinafine 250 mg Tab RxNorm: 908174 1 Tablet(s) PO QD No Start Da te 04/03/2010 Inactive Fexofenadine 180 mg Tab RxNorm: 4220604 1 Tablet(s) PO QD No Start Date 09/06/2015 Inactive baclofen 20 mg tablet RxNorm: 905321 1 Tablet(s) PO TID as needed N o Start Date 05/25/2014 Inactive Diovan 160 mg Tab RxNorm: 779822 1 Tablet(s) PO QD No Start Date 09/12 Inactive mupirocin 2 % topical ointment RxNorm: 618273 1 Application TOP QID No Start Date 04/25/2016 Inactive ZOFRAN ODT 4 mg Tab, Rapid Dissolve RxNorm: 353810 1 Tablet(s) PO Q4H No Start Date 03/18/2012 Inactive as needed for nausea and vomiting Alprazolam 0.5 mg Tab RxNorm: 699388 1 Tablet(s) PO BID PRN No Star t Date 01/12/2010 Inactive cyclobenzaprine 10 mg tablet RxNorm: 460444 1 Tablet(s) PO TID as needed for muscle spasm No Start Date 10/08/2017 Inactive Albuterol 0.083% Aerosol Solution RxNorm: 1 Appl ication INH Q4H Use one ampule every 4 hrs with nebulizer as needed for shortness of breath. No Start Date 10/09/2010 Inactive lorazepam 1 mg tablet RxNorm: 664271 1 1/2 Tablet(s) PO QHS No Star t Date 02/02/2016 Inactive Melatonin 3 mg Tab RxNorm: 134180 Tablet(s) PO PRN No Start Date 07/11 Inactive Medrol (Dustin) 4 mg Tabs in a Dose Pack RxNorm: 774354 Tablet(s) PO N o Start Date 11/28/2010 Inactive lorazepam 1 mg tablet RxNorm: 677476 1 Tablet(s) PO QHS as need ed for sleep No Start Date 01/30/2016 Inactive hydrocodone-acetaminophen 10 mg-325 mg Tab RxNorm: 1234770 1-2 Tablet(s) PO QID as needed for severe pain No Start Date 03/24/2012 Inactive celecoxib 200 mg capsule RxNorm: 749836 1 Capsule(s) PO BID No Star t Date 06/26/2019 Inactive amlodipine 5 mg-benazepril 20 mg capsule RxNorm: 410388 1 Capsu le(s) PO QD No Start Date 04/10/2017 Inactive Bystolic 20 mg tablet RxNorm: 739803 1/2 Tablet(s) PO QAM No Start Date 01/23/2016 Inactive Bystolic 20 mg tablet RxNorm: 406324 1 Tablet(s) PO QAM No Start Da te 04/25/2016 Inactive Ambien 10 mg Tab RxNorm: 706033 1 Tablet(s) PO QHS No Start Date 05/11 Inactive Klor-Con 8 mEq Tab RxNorm: 650895 1 Tablet(s) PO QD when takes lasix No Start Date 03/06/2010 Inactive aspirin 81 mg tablet RxNorm: 634917 1 Tablet(s) PO QD No Start Date 0 01/29/2018 Inactive hydrocodone-acetaminophen 10 mg-325 mg Tab RxNorm: 0026593 1-2 T ablet(s) PO QID No Start Date 01/10/2012 Inactive Bystolic 10 mg tablet RxNorm: 857523 1 Tablet(s) PO QAM take one daily in the morning. No Start Date 05/28/2013 Inactive nystatin 100,000 unit/mL Oral Susp RxNorm: 552304 5 Milliliter( s) PO QID No Start Date 03/18/2012 Inactive swish and spit scopolamine 1.5 mg 72 hr Transderm Patch RxNorm: 821382 1 Unit Dose TD Q72H for motion sickness No Start Date 12/23/2013 Inactive Hydrocodone-Acetaminophen 10 mg-750 mg Tab RxNorm: 754885 1 Tablet(s) PO Q4H PRN No Start Date 01/12/2010 Inactive Soma 350 mg tablet RxNorm: 806072 1 Tablet(s) PO TID as needed for spasm No Start Date 01/12/2013 Inactive baclofen 10 mg tablet RxNorm: 409598 1 Tablet(s) PO TID as needed for muscle spasm No Start Date 09/18/2019 Inactive Soma 350 mg Tab RxNorm: 624942 1 Tablet(s) PO TID for spasm No Star t Date 01/31/2012 Inactive Co Q-10 400 mg capsule RxNorm: 204870 1 Capsule(s) PO QD No Start D ate 01/21/2019 Inactive nystatin 100,000 unit/gram topical cream RxNorm: 161603 Applica tion TOP BID No Start Date 03/22/2015 Inactive Exforge 5 mg-160 mg Tab RxNorm: 078812 1 Tablet(s) PO QD No Start D ate 10/09/2010 Inactive Hydrocodone-Acetaminophen 7.5 mg-650 mg Tab RxNorm: 917906 1 Ta blet(s) PO Q4H No Start Date 03/07/2010 Inactive Robaxin-750 750 mg Tab RxNorm: 412389 1-2 Tablet(s) PO TID prn spasm No Start Date 05/21/2011 Inactive amlodipine 5 mg tablet RxNorm: 382973 1 Tablet(s) PO QHS No Start D ate 09/29/2015 Inactive oxycodone-acetaminophen 10 mg-325 mg tablet RxNorm: 3774673 1-2 Tablet(s) PO Q6H No Start Date 06/16/2018 Inactive Triamterene-Hydrochlorothiazide 75 mg-50 mg Tab RxNorm: 3108 18 1 Tablet(s) PO QD No Start Date 02/08/2010 Inactive Alprazolam 0.5 mg Tab RxNorm: 176603 2 Tablet(s) PO QD prn No Start Date 03/07/2010 Inactive Bystolic 20 mg tablet RxNorm: 748893 1 Tablet(s) PO QAM No Start Da te 08/17/2015 Inactive ketorolac 10 mg tablet RxNorm: 950852 1 Tablet(s) PO QID prn he adache No Start Date 07/17/2012 Inactive acyclovir 800 mg Tab RxNorm: 754048 1 Tablet(s) PO BID No Start Date 03/18/2012 Inactive duloxetine 60 mg capsule,delayed release RxNorm: 871395 1 Capsu le(s) PO QD No Start Date 09/29/2015 Inactive Norvasc 5 mg tablet RxNorm: 062839 1 Tablet(s) PO QHS No Start Date 1 10/18/2014 Inactive promethazine 25 mg tablet RxNorm: 051593 1 Tablet(s) PO Q8H use sparingly No Start Date 07/22/2013 Inactive alprazolam 0.5 mg tablet RxNorm: 960886 3 Tablet(s) PO QHS No Start Date 06/06/2015 Inactive Lunesta 3 mg tablet RxNorm: 732991 1 Tablet(s) PO QHS No Start Date 0 09/20/2017 Inactive hydrocodone-acetaminophen 10 mg-325 mg Tab RxNorm: 2721469 1-2 Tablet(s) PO TID as needed for pain No Start Date 12/10/2011 Inactive Coricidin HBP Cough & Cold 4 mg-30 mg Tab RxNorm: 3215405 Tablet (s) PO PRN No Start Date 10/09/2010 Inactive Bactroban 2 % Ointment RxNorm: 392791 Application TOP QID to so res No Start Date 02/22/2012 Inactive Flonase 50 mcg/actuation Nasal [place] RxNorm: 008175 2 [place] AL QHS No Start Date 03/03/2014 Inactive Medication Administered No Medication Administered data Immunizations Vaccine Codes Date Status Tetanus, Diptheria, Pertussis CVX: 115 02/27/2014 Results Observation Observation Code Item Item Code Result Date S [facility] Location COMPREHENSIVE METABOLIC 36695 AST 15 U/L 2019 Unknown COMPREHENSIVE METABOLIC 83401 ALT 13 U/L 2019 Unknown COMPREHENSIVE METABOLIC 88378 BUN 12 mg/dL 2019 Unknown COMPREHENSIVE METABOLIC 46517 ALBUMIN 3.9 g/dL 2019 Unknown COMPREHENSIVE METABOLIC 14254 CHLORIDE 97 mmol/L 2019 Unknown COMPREHENSIVE METABOLIC 72901 Bili Total 0.4 mg/dL 09/29 Unknown COMPREHENSIVE METABOLIC 70257 ALK PHOS 130 U/L 2019 Unknown COMPREHENSIVE METABOLIC 93176 SODIUM 136 mmol/L 09/29 Unknown COMPREHENSIVE METABOLIC 19519 CREATININE 0.92 mg/dL 09/11 Unknown COMPREHENSIVE METABOLIC 33085 CALCIUM 9.1 mg/dL 2019 Unknown COMPREHENSIVE METABOLIC 03022 POTASSIUM 4.4 mmol/L 09/29 Unknown COMPREHENSIVE METABOLIC 78250 Total Protein 6.2 g/dL Unknown COMPREHENSIVE METABOLIC 36606 Glucose 391 mg/dL 2019 Unknown COMPREHENSIVE METABOLIC 22924 Bicarbonate 30 mmol/L 09/11 Unknown COMPREHENSIVE METABOLIC 78746 AGAP 9 mmol/L 2019 Unknown MEAN GLUC 1219081 Calc Mean Gluc 332 mg/dL 09/29/2019 Unkn own COMPLETE BLOOD COUNT 6891046 WBC 7.0 10e9/L 09/29/19 Unknown COMPLETE BLOOD COUNT [id number] RBC 4.69 10e12/L 2019 Unknown COMPLETE BLOOD COUNT 4406004 HEMOGLOBIN 14.6 g/dL 09/29/19 Unknown COMPLETE BLOOD COUNT [id number] HEMATOCRIT 45.2 % 09/29/19 Unknown COMPLETE BLOOD COUNT [id number] MCV 96.4 fL 0 Unknown COMPLETE BLOOD COUNT 4007005 MCH 31.1 pg 0 Unknown COMPLETE BLOOD COUNT 2417594 MCHC 32.3 g/dL 0 Unknown COMPLETE BLOOD COUNT [id number] PLATELET COUNT 209 10e9/L Unknown COMPLETE BLOOD COUNT 7207401 Mean Plt Volume 9.8 fL Unknown COMPLETE BLOOD COUNT 4085065 Neut Auto 48.1 % 0 Unknown COMPLETE BLOOD COUNT 0218019 Lymph Auto 36.5 % 09/29/19 Unknown COMPLETE BLOOD COUNT 4111583 [place] Auto 8.6 % 0 Unknown COMPLETE BLOOD COUNT 5165478 RDW 13.4 % 0 Unknown COMPLETE BLOOD COUNT 5740481 Eos Auto 6.5 % 0 Unknown COMPLETE BLOOD COUNT 6686936 Baso Auto 0.3 % 0 Unknown COMPLETE BLOOD COUNT [id number] Neutrophil Abs 3.37 10e9/L Unknown COMPLETE BLOOD COUNT 7003997 Lymphocyte Abs 2.56 10e9/L Unknown COMPLETE BLOOD COUNT [id number] Monocyte Abs 0.60 10e9/L 09/11 Unknown COMPLETE BLOOD COUNT [id number] Eosinophil Abs 0.46 10e9/L Unknown COMPLETE BLOOD COUNT 1795601 RDW-SD 45.9 fL 0 Unknown COMPLETE BLOOD COUNT [id number] Basophil Abs 0.02 10e9/L 09/11 Unknown LIPID GROUP 52287 Cholesterol 248 mg/dL 09/29/2019 Unkno wn LIPID GROUP 84099 Triglyceride 898 mg/dL 09/29/2019 Unkn own LIPID GROUP 38173 HDL CHOLESTEROL 41 mg/dL 09/29/2019 U nknown LIPID GROUP 82913 Chol/HDL Ratio 6.05 ratio 09/29/2019 U nknown LIPID GROUP 09931 NON-HDL Chol 207 mg/dL 09/29/2019 Unkn own LIPID GROUP 50977 LDL Cholesterol N/A Trig >400 020 Unknown GLYCOSYLATED HEMOGLOBIN TEST 50575 Hgb A1c 04776-2 13.2 % 0 09/29/2019 Unknown FREE T4 20620 T4 Free 0.75 ng/dL 09/29/2019 Unknown GFR CALC 8461427 GFR Non Afr Amr >60 mL/min 09/29/2019 Un known GFR CALC 4887325 GFR Afr Amr >60 mL/min 09/29/2019 Unknow n THYROID STIMULATING HORMONE 25810 TSH 4.245 uIU/mL 09/29/2019 Unknown COMPLETE BLOOD COUNT 8456286 WBC 10.7 10e9/L 018 Unknown COMPLETE BLOOD COUNT 0155697 RBC 4.59 10e12/L 2017 Unknown COMPLETE BLOOD COUNT 0327088 HEMOGLOBIN 14.8 g/dL 12/11/19 18 Unknown COMPLETE BLOOD COUNT [id number] HEMATOCRIT 44.9 % 12/11/19 18 Unknown COMPLETE BLOOD COUNT 0468140 MCV 97.8 fL 8 Unknown COMPLETE BLOOD COUNT 9562933 MCH 32.2 pg 8 Unknown COMPLETE BLOOD COUNT 9454456 MCHC 33.0 g/dL 8 Unknown COMPLETE BLOOD COUNT 9534743 PLATELET COUNT 261 10e9/L 10/2017 Unknown COMPLETE BLOOD COUNT 8147819 Mean Plt Volume 9.5 fL 10/2017 Unknown COMPLETE BLOOD COUNT 5047113 Neut Auto 59.9 % 8 Unknown COMPLETE BLOOD COUNT 9751204 Lymph Auto 27.4 % 12/11/19 18 Unknown COMPLETE BLOOD COUNT 6904826 [place] Auto 8.2 % 8 Unknown COMPLETE BLOOD COUNT 0828892 RDW 13.3 % 8 Unknown COMPLETE BLOOD COUNT 2890671 Eos Auto 4.1 % 8 Unknown COMPLETE BLOOD COUNT 6526668 Baso Auto 0.4 % 8 Unknown COMPLETE BLOOD COUNT 7860038 Neutrophil Abs 6.41 10e9/L Unknown COMPLETE BLOOD COUNT 0917091 Lymphocyte Abs 2.93 10e9/L Unknown COMPLETE BLOOD COUNT [id number] Monocyte Abs 0.88 10e9/L 10/2017 Unknown COMPLETE BLOOD COUNT 9370800 Eosinophil Abs 0.44 10e9/L Unknown COMPLETE BLOOD COUNT [id number] RDW-SD 46.2 fL 8 Unknown COMPLETE BLOOD COUNT 0746217 Basophil Abs 0.04 10e9/L 10/2017 Unknown THYROID STIMULATING HORMONE 96659 TSH 4.015 uIU/mL 12/10/2017 Unknown COMPREHENSIVE METABOLIC 41032 AST 25 U/L 2017 Unknown COMPREHENSIVE METABOLIC 69076 ALT 17 U/L 2017 Unknown COMPREHENSIVE METABOLIC 49103 BUN 19 mg/dL 2017 Unknown COMPREHENSIVE METABOLIC 62422 ALBUMIN 4.0 g/dL 2017 Unknown COMPREHENSIVE METABOLIC 95684 CHLORIDE 91 mmol/L 2017 Unknown COMPREHENSIVE METABOLIC 41451 Bili Total 0.5 mg/dL 12/10 Unknown COMPREHENSIVE METABOLIC 79506 ALK PHOS 75 U/L 2017 Unknown COMPREHENSIVE METABOLIC 18022 SODIUM 136 mmol/L 12/10 Unknown COMPREHENSIVE METABOLIC 69948 CREATININE 1.05 mg/dL 10/2017 Unknown COMPREHENSIVE METABOLIC 31349 CALCIUM 8.9 mg/dL 2017 Unknown COMPREHENSIVE METABOLIC 27881 POTASSIUM 3.4 mmol/L 12/10 Unknown COMPREHENSIVE METABOLIC 21562 Total Protein 6.5 g/dL Unknown COMPREHENSIVE METABOLIC 55409 Glucose 138 mg/dL 2017 Unknown COMPREHENSIVE METABOLIC 01996 Bicarbonate 35 mmol/L 10/2017 Unknown COMPREHENSIVE METABOLIC 17385 AGAP 10 mmol/L 2017 Unknown MEAN GLUC 4237467 Calc Mean Gluc 171 mg/dL 12/10/2017 Unkn own LIPID GROUP 10591 Cholesterol 204 mg/dL 12/10/2017 Unkno wn LIPID GROUP 25711 Triglyceride 411 mg/dL 12/10/2017 Unkn own LIPID GROUP 61886 HDL CHOLESTEROL 50 mg/dL 12/10/2017 U nknown LIPID GROUP 91493 Chol/HDL Ratio 4.08 ratio 12/10/2017 U nknown LIPID GROUP 10097 NON-HDL Chol 154 mg/dL 12/10/2017 Unkn own LIPID GROUP 79407 LDL Cholesterol N/A Trig >400 018 Unknown GLYCOSYLATED HEMOGLOBIN TEST 32174 Hgb A1c 90946-3 7.6 % 0 12/10/2017 Unknown FREE T4 35149 T4 Free 1.40 ng/dL 12/10/2017 Unknown GFR CALC 5048132 GFR Non Afr Amr 55 mL/min 12/10/2017 Unk nown GFR CALC 7123833 GFR Afr Amr >60 mL/min 12/10/2017 Unknow n GFR CALC 3811555 GFR Non Afr Amr 48 mL/min 06/28/2017 Unk nown GFR CALC 7990584 GFR Afr Amr 59 mL/min 06/28/2017 Unknown COMPREHENSIVE METABOLIC 37276 AST 32 U/L 2016 Unknown COMPREHENSIVE METABOLIC 53080 ALT 22 U/L 2016 Unknown COMPREHENSIVE METABOLIC 78500 BUN 23 mg/dL 2016 Unknown COMPREHENSIVE METABOLIC 08645 ALBUMIN 4.7 g/dL 2016 Unknown COMPREHENSIVE METABOLIC 90633 CHLORIDE 89 mmol/L 2016 Unknown COMPREHENSIVE METABOLIC 97764 Bili Total 0.5 mg/dL 06/28 Unknown COMPREHENSIVE METABOLIC 04742 ALK PHOS 90 U/L 2016 Unknown COMPREHENSIVE METABOLIC 46246 SODIUM 135 mmol/L 06/28 Unknown COMPREHENSIVE METABOLIC 02719 CREATININE 1.18 mg/dL 06/10 Unknown COMPREHENSIVE METABOLIC 97396 CALCIUM 9.7 mg/dL 2016 Unknown COMPREHENSIVE METABOLIC 90562 POTASSIUM 3.5 mmol/L 06/28 Unknown COMPREHENSIVE METABOLIC 63711 Total Protein 7.7 g/dL Unknown COMPREHENSIVE METABOLIC 15769 Glucose 129 mg/dL 2016 Unknown COMPREHENSIVE METABOLIC 88799 Bicarbonate 34 mmol/L 06/10 Unknown COMPREHENSIVE METABOLIC 99266 AGAP 12 mmol/L 2016 Unknown LIPID GROUP 73987 HDL TEST 64 MG/DL 08/27/2014 Unknown LIPID GROUP 03411 TRIG 222 MG/DL 08/27/2014 Unknown LIPID GROUP 19579 TEST LDL 209 MG/DL 08/27/2014 Unknown LIPID GROUP 06246 CHOL 317 MG/DL 08/27/2014 Unknown LIPID GROUP 02628 RCHOL/HDL 4.95 RATIO 08/27/2014 Unknow n LIPID GROUP 94979 NON-HDL CH 253 MG/DL 08/27/2014 Unknow n GFR CALC 3801227 GFR AA >60 ML/MIN 08/27/2014 Unknown GFR CALC 5615715 GFR NON-AA >60 ML/MIN 08/27/2014 Unknown COMPLETE BLOOD COUNT 8045340 WBC 7.0 10e9/L 08/27/20 14 Unknown COMPLETE BLOOD COUNT 1049091 RBC 4.98 10e12/L 2013 Unknown COMPLETE BLOOD COUNT 0027685 HGB 15.6 g/dL 4 Unknown COMPLETE BLOOD COUNT 7290612 HCT DET 46.5 % 4 Unknown COMPLETE BLOOD COUNT 6896730 MCV 93.4 fL 4 Unknown COMPLETE BLOOD COUNT 2668666 MCH 31.3 pg 4 Unknown COMPLETE BLOOD COUNT 2791576 MCHC 33.5 g/dL 4 Unknown COMPLETE BLOOD COUNT 6643517 PLT 309 10e9/L 08/27/20 14 Unknown COMPLETE BLOOD COUNT 7401872 MPV 9.6 fL 4 Unknown COMPLETE BLOOD COUNT 7527099 CADEN % 57.2 % 4 Unknown COMPLETE BLOOD COUNT 5829351 LY % 33.2 % 4 Unknown COMPLETE BLOOD COUNT 9414054 MON % 7.3 % 4 Unknown COMPLETE BLOOD COUNT 1931364 EOS % 2.0 % 4 Unknown COMPLETE BLOOD COUNT 1385196 BASO % 0.3 % 4 Unknown COMPLETE BLOOD COUNT 5153231 RDW 13.7 % 4 Unknown COMPLETE BLOOD COUNT 4479417 ABS CADEN 4.00 10e9/L 014 Unknown COMPLETE BLOOD COUNT 8331161 ABS LYMPH 2.32 10e9/L 014 Unknown COMPLETE BLOOD COUNT 1062200 ABS MONO 0.51 10e9/L 014 Unknown COMPLETE BLOOD COUNT 4149025 ABS EOS 0.14 10e9/L 014 Unknown COMPLETE BLOOD COUNT 7551748 ABS BASO 0.02 10e9/L 014 Unknown COMPLETE BLOOD COUNT 4125559 RDW-SD 45.1 fL 4 Unknown COMPREHENSIVE METABOLIC 81234 AST 13 U/L 2013 Unknown COMPREHENSIVE METABOLIC 62401 ALT 11 IU/L 2013 Unknown COMPREHENSIVE METABOLIC 59493 BUN 23 MG/DL 2013 Unknown COMPREHENSIVE METABOLIC 13774 ALBUMIN 4.4 GM/DL 2013 Unknown COMPREHENSIVE METABOLIC 15389 CHLORIDE 99 MMOL/L 2013 Unknown COMPREHENSIVE METABOLIC 68398 BILI TOT 0.5 MG/DL 2013 Unknown COMPREHENSIVE METABOLIC 63538 ALK PHOS 56 U/L 2013 Unknown COMPREHENSIVE METABOLIC 56630 SODIUM 138 MMOL/L 08/27 Unknown COMPREHENSIVE METABOLIC 98784 CREATININE 0.95 MG/DL 08/10 Unknown COMPREHENSIVE METABOLIC 68955 CALCIUM 9.8 MG/DL 2013 Unknown COMPREHENSIVE METABOLIC 64331 POTASSIUM 3.5 MMOL/L 08/27 Unknown COMPREHENSIVE METABOLIC 29042 PROT TOT 6.8 GM/DL 2013 Unknown COMPREHENSIVE METABOLIC 91077 Glucose 90 MG/DL 2013 Unknown COMPREHENSIVE METABOLIC 16449 BICARB 34 MMOL/L 2013 Unknown COMPREHENSIVE METABOLIC 77316 ANION GAP 5 MEQ/L 2013 Unknown LIPASE 06481 LIPASE 11 IU/L 07/21/2014 Unknown AMYLASE 71188 AMYLASE 39 IU/L 07/21/2014 Unknown HEMOGLOBIN A1C (GLYCOSYLATED) 3923526 A1C HPLC 98312-0 6.2 % 03/05/2013 Unknown THYROID STIMULATING HORMONE 41382 TSH 6.986 uIU/ML 03/05/2013 Unknown COMPLETE BLOOD COUNT 6948601 WBC 12.7 10e9/L 013 Unknown COMPLETE BLOOD COUNT 9268397 RBC 4.53 10e12/L 2012 Unknown COMPLETE BLOOD COUNT 7753673 HGB 14.7 g/dL 3 Unknown COMPLETE BLOOD COUNT 8028037 HCT DET 43.1 % 3 Unknown COMPLETE BLOOD COUNT 2951082 MCV 95.1 fL 3 Unknown COMPLETE BLOOD COUNT 4309613 MCH 32.5 pg 3 Unknown COMPLETE BLOOD COUNT 5489291 MCHC 34.1 g/dL 3 Unknown COMPLETE BLOOD COUNT 9790074 PLT 346 10e9/L 03/05/20 13 Unknown COMPLETE BLOOD COUNT 5889161 MPV 9.5 fL 3 Unknown COMPLETE BLOOD COUNT 3163228 CADEN % 67.6 % 3 Unknown COMPLETE BLOOD COUNT 3173772 LY % 22.1 % 3 Unknown COMPLETE BLOOD COUNT 4010472 MON % 6.6 % 3 Unknown COMPLETE BLOOD COUNT 0843226 EOS % 3.3 % 3 Unknown COMPLETE BLOOD COUNT 5814098 BASO % 0.4 % 3 Unknown COMPLETE BLOOD COUNT 2166518 RDW 14.0 % 3 Unknown COMPLETE BLOOD COUNT [id number] ABS CADEN 8.59 10e9/L 013 Unknown COMPLETE BLOOD COUNT 9944346 ABS LYMPH 2.81 10e9/L 013 Unknown COMPLETE BLOOD COUNT 9784385 ABS MONO 0.84 10e9/L 013 Unknown COMPLETE BLOOD COUNT 4876079 ABS EOS 0.42 10e9/L 013 Unknown COMPLETE BLOOD COUNT 7644848 ABS BASO 0.05 10e9/L 013 Unknown COMPLETE BLOOD COUNT 4428837 RDW-SD 46.0 fL 3 Unknown FREE T4 33451 FREE T4 1.14 NG/DL 03/05/2013 Unknown COMPREHENSIVE METABOLIC 79942 AST 17 U/L 2012 Unknown COMPREHENSIVE METABOLIC 54966 ALT 12 IU/L 2012 Unknown COMPREHENSIVE METABOLIC 29043 BUN 24 MG/DL 2012 Unknown COMPREHENSIVE METABOLIC 87103 ALBUMIN 4.2 GM/DL 2012 Unknown COMPREHENSIVE METABOLIC 63866 CHLORIDE 93 MMOL/L 2012 Unknown COMPREHENSIVE METABOLIC 95845 BILI TOT 0.5 MG/DL 2012 Unknown COMPREHENSIVE METABOLIC 62477 ALK PHOS 75 U/L 2012 Unknown COMPREHENSIVE METABOLIC 96288 SODIUM 141 MMOL/L 03/05 Unknown COMPREHENSIVE METABOLIC 74737 CREATININE 1.36 MG/DL 02/09 Unknown COMPREHENSIVE METABOLIC 75818 CALCIUM 9.2 MG/DL 2012 Unknown COMPREHENSIVE METABOLIC 90149 POTASSIUM 3.1 MMOL/L 03/05 Unknown COMPREHENSIVE METABOLIC 35397 PROT TOT 6.9 GM/DL 2012 Unknown COMPREHENSIVE METABOLIC 70111 Glucose 123 MG/DL 2012 Unknown COMPREHENSIVE METABOLIC 42374 BICARB 36 MMOL/L 2012 Unknown COMPREHENSIVE METABOLIC 29276 ANION GAP 12 MEQ/L 2012 Unknown GFR CALC 0224997 GFR AA 51.0L ML/MIN 03/05/2013 Unknow n GFR CALC 5974058 GFR NON-AA 42.0L ML/MIN 03/05/2013 Unkno wn COMPREHENSIVE METABOLIC 18061 AST 14 U/L 2012 Unknown COMPREHENSIVE METABOLIC 21292 ALT 11 IU/L 2012 Unknown COMPREHENSIVE METABOLIC 83656 BUN 16 MG/DL 2012 Unknown COMPREHENSIVE METABOLIC 30955 ALBUMIN 4.2 GM/DL 2012 Unknown COMPREHENSIVE METABOLIC 18369 CHLORIDE 98 MMOL/L 2012 Unknown COMPREHENSIVE METABOLIC 81965 BILI TOT 0.4 MG/DL 2012 Unknown COMPREHENSIVE METABOLIC 67917 ALK PHOS 77 U/L 2012 Unknown COMPREHENSIVE METABOLIC 29409 SODIUM 139 MMOL/L 09/25 Unknown COMPREHENSIVE METABOLIC 16340 CREATININE 0.86 MG/DL 09/10 Unknown COMPREHENSIVE METABOLIC 44721 CALCIUM 9.5 MG/DL 2012 Unknown COMPREHENSIVE METABOLIC 25868 POTASSIUM 3.8 MMOL/L 09/25 Unknown COMPREHENSIVE METABOLIC 48189 PROT TOT 6.8 GM/DL 2012 Unknown COMPREHENSIVE METABOLIC 05056 Glucose 91 MG/DL 2012 Unknown COMPREHENSIVE METABOLIC 15773 BICARB 32 MMOL/L 2012 Unknown COMPREHENSIVE METABOLIC 40289 ANION GAP 9 MEQ/L 2012 Unknown FREE T4 92975 FREE T4 0.98 NG/DL 09/25/2012 Unknown THYROID STIMULATING HORMONE 59787 TSH 1.736 uIU/ML 09/25/2012 Unknown C-REACTIVE PROTEIN (CRP) QUANT 64159 CRP 2.3 MG/DL 09/25/2012 Unknown COMPLETE BLOOD COUNT 7658535 WBC 11.9 10e9/L 013 Unknown COMPLETE BLOOD COUNT 9262143 RBC 4.87 10e12/L 2012 Unknown COMPLETE BLOOD COUNT 4573226 HGB 15.1 g/dL 3 Unknown COMPLETE BLOOD COUNT 0432602 HCT DET 44.8 % 3 Unknown COMPLETE BLOOD COUNT 2614378 MCV 92.0 fL 3 Unknown COMPLETE BLOOD COUNT 2641587 MCH 31.0 pg 3 Unknown COMPLETE BLOOD COUNT 3650852 MCHC 33.7 g/dL 3 Unknown COMPLETE BLOOD COUNT 4637628 PLT 343 10e9/L 09/25/19 13 Unknown COMPLETE BLOOD COUNT 5226927 MPV 9.0 fL 3 Unknown COMPLETE BLOOD COUNT 5577901 CADEN % 68.2 % 3 Unknown COMPLETE BLOOD COUNT 5255839 LY % 22.4 % 3 Unknown COMPLETE BLOOD COUNT 9006856 MON % 6.4 % 3 Unknown COMPLETE BLOOD COUNT 8087176 EOS % 2.7 % 3 Unknown COMPLETE BLOOD COUNT 9192918 BASO % 0.3 % 3 Unknown COMPLETE BLOOD COUNT 5593499 RDW 13.8 % 3 Unknown COMPLETE BLOOD COUNT 4497008 ABS CADEN 8.12 10e9/L 013 Unknown COMPLETE BLOOD COUNT 9967545 ABS LYMPH 2.67 10e9/L 013 Unknown COMPLETE BLOOD COUNT 5561356 ABS MONO 0.76 10e9/L 013 Unknown COMPLETE BLOOD COUNT 4146475 ABS EOS 0.32 10e9/L 013 Unknown COMPLETE BLOOD COUNT 7659636 ABS BASO 0.04 10e9/L 013 Unknown COMPLETE BLOOD COUNT 4602268 RDW-SD 45.6 fL 3 Unknown GFR CALC 1840957 GFR AA >60 ML/MIN 09/25/2012 Unknown GFR CALC 2522391 GFR NON-AA >60 ML/MIN 09/25/2012 Unknown ERYTHROCYTE SEDIMENTATION RATE 19024 ESR 19 MM/HR 05/06/2012 Unknown VITAMIN B 12 FOLIC ACID 18536|86116 VIT B 12 922 PG/ML 04/11 Unknown VITAMIN B 12 FOLIC ACID 43767|19931 FOLIC ACID 13.6 NG/ML Unknown URIC ACID 09510 URIC ACID 7.8 MG/DL 05/06/2012 Unknown COMPLETE BLOOD COUNT 36286 WBC 11.9 10e9/L 012 Unknown COMPLETE BLOOD COUNT 72996 RBC 5.30 10e12/L 2011 Unknown COMPLETE BLOOD COUNT 46401 HGB 16.6 g/dL 2 Unknown COMPLETE BLOOD COUNT 68702 HCT DET 47.2 % 2 Unknown COMPLETE BLOOD COUNT 14175 MCV 89.1 fL 2 Unknown COMPLETE BLOOD COUNT 72467 MCH 31.3 pg 2 Unknown COMPLETE BLOOD COUNT 52740 MCHC 35.2 g/dL 2 Unknown COMPLETE BLOOD COUNT 47063 PLT 362 10e9/L 05/06/20 12 Unknown COMPLETE BLOOD COUNT 11002 MPV 9.4 fL 2 Unknown COMPLETE BLOOD COUNT 09146 CADEN % 68.2 % 2 Unknown COMPLETE BLOOD COUNT 67976 LY % 22.0 % 2 Unknown COMPLETE BLOOD COUNT 33108 MON % 6.9 % 2 Unknown COMPLETE BLOOD COUNT 92891 EOS % 2.6 % 2 Unknown COMPLETE BLOOD COUNT 52323 BASO % 0.3 % 2 Unknown COMPLETE BLOOD COUNT 19348 RDW 12.8 % 2 Unknown COMPLETE BLOOD COUNT 10250 ABS CADEN 8.12 10e9/L 012 Unknown COMPLETE BLOOD COUNT 64567 ABS LYMPH 2.62 10e9/L 012 Unknown COMPLETE BLOOD COUNT 84669 ABS MONO 0.82 10e9/L 012 Unknown COMPLETE BLOOD COUNT 52243 ABS EOS 0.31 10e9/L 012 Unknown COMPLETE BLOOD COUNT 35392 ABS BASO 0.04 10e9/L 012 Unknown COMPLETE BLOOD COUNT 76200 RDW-SD 41.5 fL 2 Unknown GFR CALC 7215532 GFR AA >60 ML/MIN 05/06/2012 Unknown GFR CALC 2726954 GFR NON-AA 58.0L ML/MIN 05/06/2012 Unkno wn FREE T4 36618 FREE T4 1.15 NG/DL 05/06/2012 Unknown THYROID STIMULATING HORMONE 25975 TSH 1.568 uIU/ML 05/06/2012 Unknown COMPREHENSIVE METABOLIC 16989 AST 20 U/L 2011 Unknown COMPREHENSIVE METABOLIC 48810 ALT 12 IU/L 2011 Unknown COMPREHENSIVE METABOLIC 56113 BUN 20 MG/DL 2011 Unknown COMPREHENSIVE METABOLIC 62634 ALBUMIN 4.5 GM/DL 2011 Unknown COMPREHENSIVE METABOLIC 71193 CHLORIDE 91 MMOL/L 2011 Unknown COMPREHENSIVE METABOLIC 56747 BILI TOT 0.4 MG/DL 2011 Unknown COMPREHENSIVE METABOLIC 97152 ALK PHOS 73 U/L 2011 Unknown COMPREHENSIVE METABOLIC 09431 SODIUM 139 MMOL/L 05/06 Unknown COMPREHENSIVE METABOLIC 61850 CREATININE 1.02 MG/DL 04/11 Unknown COMPREHENSIVE METABOLIC 57673 CALCIUM 9.7 MG/DL 2011 Unknown COMPREHENSIVE METABOLIC 81357 POTASSIUM 3.1 MMOL/L 05/06 Unknown COMPREHENSIVE METABOLIC 51346 PROT TOT 7.3 GM/DL 2011 Unknown COMPREHENSIVE METABOLIC 71710 Glucose 118 MG/DL 2011 Unknown COMPREHENSIVE METABOLIC 72388 BICARB 33 MMOL/L 2011 Unknown COMPREHENSIVE METABOLIC 97014 ANION GAP 15 MEQ/L 2011 Unknown Procedures Procedure Codes Date ROUTINE VENIPUNCTURE CPT-4: 79147 09/29/2019 URINALYSIS NONAUTO W/O SCOPE CPT-4: 32325 09/29/2019 COMPREHEN METABOLIC PANEL CPT-4: 05318 09/29/2019 LIPID PANEL CPT-4: 00036 09/29/2019 A1C HPLC CPT-4: 87377 09/29/2019 ASSAY OF FREE THYROXINE CPT-4: 77094 09/29/2019 ASSAY THYROID STIM HORMONE CPT-4: 06948 09/29/2019 COMPLETE CBC W/AUTO DIFF WBC CPT-4: 45695 09/29/2019 URINALYSIS NONAUTO W/O SCOPE CPT-4: 67382 09/30/2018 MICROALBUMIN QUANTITATIVE CPT-4: 01267 09/30/2018 CEFTRIAXONE SODIUM INJECTION CPT-4: J0696 06/19/2018 THER/PROPH/DIAG INJ SC/IM CPT-4: 30605 06/19/2018 CEFTRIAXONE SODIUM INJECTION CPT-4: J0696 06/17/2018 THER/PROPH/DIAG INJ SC/IM CPT-4: 36516 06/17/2018 THER/PROPH/DIAG INJ SC/IM CPT-4: 33116 05/16/2018 KETOROLAC TROMETHAMINE INJ CPT-4: J1885 05/16/2018 ONDANSETRON HCL INJECTION CPT-4: J2405 05/16/2018 THER/PROPH/DIAG INJ SC/IM CPT-4: 18736 05/16/2018 ROUTINE VENIPUNCTURE CPT-4: 31651 03/20/2018 COMPREHEN METABOLIC PANEL CPT-4: 76281 03/20/2018 DEXAMETHASONE SODIUM PHOS CPT-4: J1100 02/11/2018 THER/PROPH/DIAG INJ SC/IM CPT-4: 53148 02/11/2018 TRIAMCINOLONE ACET INJ NOS CPT-4: J3301 02/11/2018 CEFTRIAXONE SODIUM INJECTION CPT-4: J0696 02/01/2018 THER/PROPH/DIAG INJ SC/IM CPT-4: 65161 02/01/2018 CEFTRIAXONE SODIUM INJECTION CPT-4: J0696 01/30/2018 THER/PROPH/DIAG INJ SC/IM CPT-4: 66104 01/30/2018 ROUTINE VENIPUNCTURE CPT-4: 83199 12/10/2017 ASSAY OF FREE THYROXINE CPT-4: 24957 12/10/2017 ASSAY THYROID STIM HORMONE CPT-4: 06243 12/10/2017 COMPREHEN METABOLIC PANEL CPT-4: 85483 12/10/2017 COMPLETE CBC W/AUTO DIFF WBC CPT-4: 46646 12/10/2017 LIPID PANEL CPT-4: 67017 12/10/2017 A1C HPLC CPT-4: 80690 12/10/2017 CEFTRIAXONE SODIUM INJECTION CPT-4: J0696 12/10/2017 THER/PROPH/DIAG INJ SC/IM CPT-4: 22249 12/10/2017 CEFTRIAXONE SODIUM INJECTION CPT-4: J0696 12/07/2017 THER/PROPH/DIAG INJ SC/IM CPT-4: 55341 12/07/2017 DEXAMETHASONE SODIUM PHOS CPT-4: J1100 12/07/2017 THER/PROPH/DIAG INJ SC/IM CPT-4: 18730 12/07/2017 CEFTRIAXONE SODIUM INJECTION CPT-4: J0696 10/08/2017 THER/PROPH/DIAG INJ SC/IM CPT-4: 94615 10/08/2017 CEFTRIAXONE SODIUM INJECTION CPT-4: J0696 09/21/2017 THER/PROPH/DIAG INJ SC/IM CPT-4: 77340 09/21/2017 CEFTRIAXONE SODIUM INJECTION CPT-4: J0696 09/20/2017 THER/PROPH/DIAG INJ SC/IM CPT-4: 42715 09/20/2017 REMOVAL OF NAIL PLATE CPT-4: 67396 08/29/2017 THER/PROPH/DIAG INJ SC/IM CPT-4: 82910 08/29/2017 TRIAMCINOLONE ACET INJ NOS CPT-4: J3301 08/29/2017 CEFTRIAXONE SODIUM INJECTION CPT-4: J0696 08/29/2017 THER/PROPH/DIAG INJ SC/IM CPT-4: 23794 08/29/2017 DESTRUCT PREMALG LESION (Cryosurgery) CPT-4: 78086 ROUTINE VENIPUNCTURE CPT-4: 57667 06/27/2017 ASSAY OF FREE THYROXINE CPT-4: 99384 06/27/2017 ASSAY THYROID STIM HORMONE CPT-4: 60402 06/27/2017 COMPREHEN METABOLIC PANEL CPT-4: 63544 06/27/2017 COMPLETE CBC W/AUTO DIFF WBC CPT-4: 24132 06/27/2017 EXC TR-EXT B9+REECE 0.5 CM< CPT-4: 71640 01/24/2017 THER/PROPH/DIAG INJ SC/IM CPT-4: 47910 08/02/2016 DEXAMETHASONE SODIUM PHOS CPT-4: J1100 08/02/2016 DESTRUCT PREMALG LESION (Cryosurgery) CPT-4: 11448 EXC TR-EXT B9+REECE 0.5 CM< CPT-4: 43035 08/01/2016 AEROBIC WOUND CULTURE & STN CPT-4: 32539 07/06/2016 CEFTRIAXONE SODIUM INJECTION CPT-4: J0696 05/25/2016 THER/PROPH/DIAG INJ SC/IM CPT-4: 34201 05/25/2016 THER/PROPH/DIAG INJ SC/IM CPT-4: 63983 04/26/2016 DEXAMETHASONE SODIUM PHOS CPT-4: J1100 04/26/2016 CEFTRIAXONE SODIUM INJECTION CPT-4: J0696 04/26/2016 THER/PROPH/DIAG INJ SC/IM CPT-4: 41826 04/26/2016 THER/PROPH/DIAG INJ SC/IM CPT-4: 01286 02/09/2016 TRIAMCINOLONE ACET INJ NOS CPT-4: J3301 02/09/2016 URINALYSIS NONAUTO W/O SCOPE CPT-4: 42325 01/24/2016 URINE CULTURE/ COLONY COUNT CPT-4: 67430 01/24/2016 THER/PROPH/DIAG INJ SC/IM CPT-4: 13821 12/08/2015 TRIAMCINOLONE ACET INJ NOS CPT-4: J3301 12/08/2015 THER/PROPH/DIAG INJ SC/IM CPT-4: 28728 10/07/2015 TRIAMCINOLONE ACET INJ NOS CPT-4: J3301 10/07/2015 DESTRUCT PREMALG LESION (Cryosurgery) CPT-4: 26961 THER/PROPH/DIAG INJ SC/IM CPT-4: 20838 03/16/2015 METHYLPREDNISOLONE 40 MG INJ CPT-4: J1030 03/16/2015 DESTRUCT PREMALG LESION (Cryosurgery) CPT-4: 82758 THER/PROPH/DIAG INJ SC/IM CPT-4: 86377 09/11/2014 METHYLPREDNISOLONE 40 MG INJ CPT-4: J1030 09/11/2014 TRIAMCINOLONE ACET INJ NOS CPT-4: J3301 09/11/2014 CEFTRIAXONE SODIUM INJECTION CPT-4: J0696 09/11/2014 THER/PROPH/DIAG INJ SC/IM CPT-4: 88420 09/11/2014 ROUTINE VENIPUNCTURE CPT-4: 75653 08/27/2014 COMPREHEN METABOLIC PANEL CPT-4: 11887 08/27/2014 COMPLETE CBC W/AUTO DIFF WBC CPT-4: 88405 08/27/2014 LIPID PANEL CPT-4: 03879 08/27/2014 ROUTINE VENIPUNCTURE CPT-4: 89555 07/21/2014 ASSAY OF AMYLASE CPT-4: 61595 07/21/2014 ASSAY OF LIPASE CPT-4: 17251 07/21/2014 THER/PROPH/DIAG INJ SC/IM CPT-4: 26584 07/15/2014 TRIAMCINOLONE ACET INJ NOS CPT-4: J3301 07/15/2014 ROUTINE VENIPUNCTURE CPT-4: 75409 05/14/2014 ASSAY OF FREE THYROXINE CPT-4: 21059 05/14/2014 ASSAY THYROID STIM HORMONE CPT-4: 96455 05/14/2014 COMPREHEN METABOLIC PANEL CPT-4: 14334 05/14/2014 COMPLETE CBC W/AUTO DIFF WBC CPT-4: 59119 05/14/2014 LIPID PANEL CPT-4: 52484 05/14/2014 CEFTRIAXONE SODIUM INJECTION CPT-4: J0696 04/21/2014 THER/PROPH/DIAG INJ SC/IM CPT-4: 14781 04/21/2014 THER/PROPH/DIAG INJ SC/IM CPT-4: 73307 04/21/2014 TRIAMCINOLONE ACET INJ NOS CPT-4: J3301 04/21/2014 THER/PROPH/DIAG INJ SC/IM CPT-4: 72479 03/04/2014 METHYLPREDNISOLONE 40 MG INJ CPT-4: J1030 03/04/2014 TRIAMCINOLONE ACET INJ NOS CPT-4: J3301 03/04/2014 CEFTRIAXONE SODIUM INJECTION CPT-4: J0696 03/04/2014 THER/PROPH/DIAG INJ SC/IM CPT-4: 33387 03/04/2014 TDAP VACCINE 7 YRS/> IM CPT-4: 25275 02/27/2014 IMMUNIZATION ADMIN CPT-4: 53328 02/27/2014 DESTRUCT PREMALG LESION (Cryosurgery) CPT-4: 14364 DESTRUCT PREMALG LES 2-14 CPT-4: 40978 01/13/2014 THER/PROPH/DIAG INJ SC/IM CPT-4: 60973 10/21/2013 METHYLPREDNISOLONE 40 MG INJ CPT-4: J1030 10/21/2013 TRIAMCINOLONE ACET INJ NOS CPT-4: J3301 10/21/2013 CEFTRIAXONE SODIUM INJECTION CPT-4: J0696 08/27/2013 THER/PROPH/DIAG INJ SC/IM CPT-4: 11873 08/27/2013 THER/PROPH/DIAG INJ SC/IM CPT-4: 28431 08/27/2013 METHYLPREDNISOLONE 40 MG INJ CPT-4: J1030 08/27/2013 TRIAMCINOLONE ACET INJ NOS CPT-4: J3301 08/27/2013 THER/PROPH/DIAG INJ SC/IM CPT-4: 16109 06/23/2013 METHYLPREDNISOLONE 40 MG INJ CPT-4: J1030 06/23/2013 TRIAMCINOLONE ACET INJ NOS CPT-4: J3301 06/23/2013 THER/PROPH/DIAG INJ SC/IM CPT-4: 54270 05/26/2013 METHYLPREDNISOLONE 40 MG INJ CPT-4: J1030 05/26/2013 TRIAMCINOLONE ACET INJ NOS CPT-4: J3301 05/26/2013 ROUTINE VENIPUNCTURE CPT-4: 66531 03/05/2013 ASSAY OF FREE THYROXINE CPT-4: 59184 03/05/2013 ASSAY THYROID STIM HORMONE CPT-4: 85385 03/05/2013 COMPREHEN METABOLIC PANEL CPT-4: 43953 03/05/2013 COMPLETE CBC W/AUTO DIFF WBC CPT-4: 79817 03/05/2013 A1C GLYCOSYLATED HEMOGLOBIN TEST CPT-4: 44301 013 DRAIN/INJECT JOINT/BURSA CPT-4: 24664 12/04/2012 METHYLPREDNISOLONE 40 MG INJ CPT-4: J1030 12/04/2012 TRIAMCINOLONE ACET INJ NOS CPT-4: J3301 12/04/2012 CEFTRIAXONE SODIUM INJECTION CPT-4: J0696 11/21/2012 THER/PROPH/DIAG INJ SC/IM CPT-4: 72240 11/21/2012 THER/PROPH/DIAG INJ SC/IM CPT-4: 11832 10/14/2012 METHYLPREDNISOLONE 40 MG INJ CPT-4: J1030 10/14/2012 TRIAMCINOLONE ACET INJ NOS CPT-4: J3301 10/14/2012 URINALYSIS NONAUTO W/O SCOPE CPT-4: 21820 09/27/2012 ROUTINE VENIPUNCTURE CPT-4: 72084 09/25/2012 ASSAY OF FREE THYROXINE CPT-4: 33079 09/25/2012 ASSAY THYROID STIM HORMONE CPT-4: 02716 09/25/2012 COMPREHEN METABOLIC PANEL CPT-4: 24761 09/25/2012 COMPLETE CBC W/AUTO DIFF WBC CPT-4: 97971 09/25/2012 C-REACTIVE PROTEIN CPT-4: 17484 09/25/2012 THER/PROPH/DIAG INJ SC/IM CPT-4: 70806 08/29/2012 METHYLPREDNISOLONE 40 MG INJ CPT-4: J1030 08/29/2012 TRIAMCINOLONE ACET INJ NOS CPT-4: J3301 08/29/2012 DESTRUCT PREMALG LESION (Cryosurgery) CPT-4: 02461 THER/PROPH/DIAG INJ SC/IM CPT-4: 48178 05/06/2012 METHYLPREDNISOLONE 40 MG INJ CPT-4: J1030 05/06/2012 TRIAMCINOLONE ACET INJ NOS CPT-4: J3301 05/06/2012 VITAMIN B 12 FOLIC ACID CPT-4: 07750|72915 05/06/2012 RBC SED RATE AUTOMATED CPT-4: 72862 05/06/2012 ROUTINE VENIPUNCTURE CPT-4: 94428 05/06/2012 ASSAY OF FREE THYROXINE CPT-4: 31241 05/06/2012 ASSAY THYROID STIM HORMONE CPT-4: 46094 05/06/2012 COMPREHEN METABOLIC PANEL CPT-4: 04049 05/06/2012 COMPLETE CBC W/AUTO DIFF WBC CPT-4: 45801 05/06/2012 ASSAY OF BLOOD/URIC ACID CPT-4: 37464 05/06/2012 THER/PROPH/DIAG INJ SC/IM CPT-4: 93820 03/19/2012 KETOROLAC TROMETHAMINE INJ CPT-4: J1885 03/19/2012 KETOROLAC TROMETHAMINE INJ CPT-4: J1885 01/30/2012 THER/PROPH/DIAG INJ SC/IM CPT-4: 92491 01/30/2012 PROMETHAZINE HCL INJECTION CPT-4: J2550 01/30/2012 THER/PROPH/DIAG INJ SC/IM CPT-4: 01603 01/24/2012 METHYLPREDNISOLONE 40 MG INJ CPT-4: J1030 01/24/2012 TRIAMCINOLONE ACET INJ NOS CPT-4: J3301 01/24/2012 THER/PROPH/DIAG INJ SC/IM CPT-4: 45124 09/13/2011 KETOROLAC TROMETHAMINE INJ CPT-4: J1885 09/13/2011 THER/PROPH/DIAG INJ SC/IM CPT-4: 73005 09/13/2011 PROMETHAZINE HCL INJECTION CPT-4: J2550 09/13/2011 CEFTRIAXONE SODIUM INJECTION CPT-4: J0696 07/20/2011 THER/PROPH/DIAG INJ SC/IM CPT-4: 16434 07/20/2011 THER/PROPH/DIAG INJ SC/IM CPT-4: 94640 07/20/2011 METHYLPREDNISOLONE INJECTION CPT-4: J2930 07/20/2011 URINALYSIS NONAUTO W/O SCOPE CPT-4: 09800 05/09/2011 CEFTRIAXONE SODIUM INJECTION CPT-4: J0696 05/09/2011 THER/PROPH/DIAG INJ SC/IM CPT-4: 58311 05/09/2011 THER/PROPH/DIAG INJ SC/IM CPT-4: 55161 05/09/2011 PROMETHAZINE HCL INJECTION CPT-4: J2550 05/09/2011 HYDRATION IV INFUSION INIT CPT-4: 42077 05/09/2011 DESTRUCT PREMALG LESION (Cryosurgery) CPT-4: 43106 DESTRUCT PREMALG LES 2-14 CPT-4: 28586 07/19/2010 REMOVAL OF SKIN TAGS <W/15 CPT-4: 36795 05/30/2010 THER/PROPH/DIAG INJ SC/IM CPT-4: 70480 04/05/2010 CEFTRIAXONE SODIUM INJECTION CPT-4: J0696 04/05/2010 TRIAMCINOLONE ACET INJ NOS CPT-4: J3301 04/05/2010 METHYLPREDNISOLONE 40 MG INJ CPT-4: J1030 04/05/2010 THER/PROPH/DIAG INJ SC/IM CPT-4: 19128 04/05/2010 TRIAMCINOLONE ACET INJ NOS CPT-4: J3301 03/09/2010 METHYLPREDNISOLONE 40 MG INJ CPT-4: J1030 03/09/2010 THER/PROPH/DIAG INJ SC/IM CPT-4: 46495 03/09/2010 THER/PROPH/DIAG INJ SC/IM CPT-4: 13206 03/09/2010 CEFTRIAXONE SODIUM INJECTION CPT-4: J0696 03/09/2010 [...] 1: 132/80 Code: 8480-6 BMI: 35.8 Code: 32192-0 Heart Rate 1: 88 bpm Height: 5'4" Respiratory Rate: 20 bpm SpO2: 95% Tempera ture: 36.9 (C) / 98.5 (F) Weight: 210 lbs 05/28/2019 Blood Pressure 1: 126/82 Code: 8480-6 BMI: 35.0 Code: 38493-5 Heart Rate 1: 88 bpm Height: 5'4" [...] 1: 128/90 Code: 8480-6 BMI: 37.2 Code: 41385-7 Heart Rate 1: 84 bpm Height: 5'4" Respiratory Rate: 20 bpm SpO2: 95% Tempera ture: 36.6 (C) / 97.8 (F) Weight: 217 lbs 08/27/2018 Blood Pressure 1: 128/88 Code: 8480-6 BMI: 38.3 Code: 19394-6 Heart Rate 1: 84 bpm Height: 5'4" [...] 1: 119/72 Code: 8480-6 BMI: 37.4 Code: 93447-5 Heart Rate 1: 82 bpm Height: 5'4" Respiratory Rate: 12 bpm SpO2: 94% Tempera ture: 35.2 (C) / 95.4 (F) Weight: 218 lbs 12/18/2017 Blood Pressure 1: 128/86 Code: 8480-6 BMI: 37.8 Code: 39636-8 Heart Rate 1: 84 bpm Height: 5'4" [...] 1: 128/82 Code: 8480-6 BMI: 35.5 Code: 81108-7 Heart Rate 1: 84 bpm Height: 5'4" [...] 1: 128/82 Code: 8480-6 BMI: 30.2 Code: 82968-6 Heart Rate 1: 80 bpm Height: 5'4" [...] 1: 128/86 Code: 8480-6 BMI: 32.8 Code: 49150-5 Heart Rate 1: 66 bpm Height: 5'4" Respiratory Rate: 18 bpm Temperature: 36 .3 (C) / 97.3 (F) Weight: 191 lbs 06/23/2013 Blood Pressure 1: 132/94 Code: 8480-6 BMI: 34.0 Code: 88908-2 Heart Rate 1: 84 bpm Height: 5'4" Respiratory Rate: 20 bpm Temperature: 36 .8 (C) / 98.2 (F) Weight: 198 lbs 05/26/2013 Blood Pressure 1: 114/80 Code: 8480-6 BMI: 35.0 Code: 65991-1 Heart Rate 1: 80 bpm Height: 5'4" Respiratory Rate: 20 bpm Temperature: 36 .4 (C) / 97.6 (F) Weight: 204 lbs 04/16/2013 Blood Pressure 1: 114/82 Code: 8480-6 BMI: 36.7 Code: 04668-2 Heart Rate 1: 84 bpm Height: 5'4" Respiratory Rate: 20 bpm Temperature: 36 .7 (C) / 98.0 (F) Weight: 214 lbs 03/05/2013 Blood Pressure 1: 136/90 Code: 8480-6 BMI: 37.1 Code: 90032-5 Heart Rate 1: 84 bpm Height: 5'4" [...] 1: 168/114 Code: 8480-6 BMI: 36.2 Code: 96427-0 Heart Rate 1: 104 bpm Height: 5'4" Respiratory Rate: 20 bpm Temperature: 36 .8 (C) / 98.2 (F) Weight: 211 lbs 11/22/2012 Blood Pressure 1: 128/90 Code: 8480-6 Heart Rate 1: 88 bpm Respiratory Rate: 20 bpm SpO2: 96% Temperature: 36.8 (C) / 98.2 (F) 11/21/2012 Blood Pressure 1: 146/100 Code: 8480-6 BMI: 35.7 Code: 81580-9 Heart Rate 1: 96 bpm Height: 5'4" [...] 1: 138/100 Code: 8480-6 BMI: 35.7 Code: 20767-5 Heart Rate 1: 96 bpm Height: 5'4" Respiratory Rate: 20 bpm Temperature: 36 .8 (C) / 98.2 (F) Weight: 208 lbs 05/06/2012 Blood Pressure 1: 154/102 Code: 8480-6 BMI: 34.7 Code: 91983-3 Heart Rate 1: 116 bpm Height: 5'4" Respiratory Rate: 20 bpm Temperature: 36 .8 (C) / 98.2 (F) Weight: 202 lbs 04/03/2012 Blood Pressure 1: 134/94 Code: 8480-6 BMI: 34.8 Code: 10658-1 Heart Rate 1: 108 bpm Height: 5'4" Respiratory Rate: 20 bpm Temperature: 36 .8 (C) / 98.2 (F) Weight: 203 lbs 03/19/2012 Blood Pressure 1: 148/106 Code: 8480-6 BMI: 35.0 Code: 38797-8 Heart Rate 1: 100 bpm Height: 5'4" Respiratory Rate: 20 bpm Temperature: 36 .6 (C) / 97.9 (F) Weight: 204 lbs 02/22/2012 Blood Pressure 1: 146/94 Code: 8480-6 He art Rate 1: 88 bpm 02/21/2012 Blood Pressure 1: 172/120 Code: 8480-6 B lood Pressure 2: 152/106 Code: 8480-6 Heart Rate 1: 116 bpm 02/20/2012 Blood Pressure 1: 160/100 Code: 8480-6 BMI: 32.0 Code: 23590-9 Heart Rate 1: 84 bpm Height: 5'7" Temperature: 36.5 (C) / 97.7 (F) Weight: 204 lbs 01/30/2012 Blood Pressure 1: 152/110 Code: 8480-6 BMI: 32.0 Code: 96037-5 Heart Rate 1: 116 bpm Height: 5'7" Respiratory Rate: 20 bpm Temperature: 37 .0 (C) / 98.6 (F) Weight: 204 lbs 01/24/2012 Blood Pressure 1: 146/100 Code: 8480-6 BMI: 32.0 Code: 11042-8 Heart Rate 1: 100 bpm Height: 5'7" Respiratory Rate: 20 bpm Temperature: 36 .7 (C) / 98.0 (F) Weight: 204 lbs 01/10/2012 Blood Pressure 1: 156/94 Code: 8480-6 BMI: 32.6 Code: 97318-0 Heart Rate 1: 72 bpm Height: 5'7" Respiratory Rate: 20 bpm Temperature: 36 .8 (C) / 98.2 (F) Weight: 208 lbs 12/11/2011 Blood Pressure 1: 146/100 Code: 8480-6 Heart Rat e 1: 116 bpm Height: 5'7" Respiratory Rate: 20 bpm Temperature: 36.9 (C) / 98.4 (F) We ight: 11/09/2011 Blood Pressure 1: 148/96 Code: 8480-6 BMI: 32.1 Code: 00283-3 Heart Rate 1: 116 bpm Height: 5'7" Respiratory Rate: 20 bpm Temperature: 36 .7 (C) / 98.0 (F) Weight: 205 lbs 09/13/2011 Blood Pressure 1: 126/88 Code: 8480-6 Heart Rate 1: 88 bpm Height: 5'7" Respiratory Rate: 20 bpm Temperature: 36.9 (C) / 98.4 (F) We ight: 08/31/2011 Blood Pressure 1: 118/82 Code: 8480-6 BMI: 32.0 Code: 50648-9 Heart Rate 1: 80 bpm Height: 5'7" Temperature: 36.4 (C) / 97.6 (F) Weight: 204 lbs 07/06/2011 Blood Pressure 1: 128/86 Code: 8480-6 BMI: 30.9 Code: 94398-8 Heart Rate 1: 92 bpm Height: 5'7" Respiratory Rate: 20 bpm Temperature: 36 .9 (C) / 98.4 (F) Weight: 197 lbs 06/06/2011 Blood Pressure 1: 112/74 Code: 8480-6 BMI: 31.0 Code: 55232-2 Heart Rate 1: 72 bpm Height: 5'7" [...] 1: 128/92 Code: 8480-6 BMI: 33.6 Code: 81613-6 Heart Rate 1: 104 bpm Height: 5'4" [...] Check-up Encounters Encounter Performer Location Codes Date ([id number]) OFFICE/OUTPATIENT VISIT EST Diagnosis: Type 2 diabetes mellitus with hyperglycemia[ICD10: E11.65] María Elena Hicks rubberitDAWN [facility] CPT-4: 02834 11/20/2019 ([id number]) OFFICE/OUTPATIENT VISIT EST Diagnosis: Ingrowing nail[ICD10: L60.0] Diagnosis: Type 2 diabetes mellitus with hyperglycemia[ICD10: E11.65] Kathleen Nadia APPIAH [facility] CPT-4: 45662 10/07/2019 ([id number]) OFFICE/OUTPATIENT VISIT EST Diagnosis: DM w/o complication type II, uncontrolled[ICD10: E11.65] Diagnosis: Hypertriglyceridemia[ICD10: E78.1] Diagnosis: Essential hypertension[ICD10: I10] María Elena Waymindimaryjane APPIAH [facility] CPT-4: 36493 09/30/2019 ([id number]) NURSE/OUTPATIENT VISIT EST Diagnosis: Essential (primary) hypertension[ICD10: I10] Diagnosis: Cervicalgia[ICD10: M54.2] Diagnosis: Hyperglycemia, unspecified[ICD10: R73.9] Diagnosis: Mixed hyperlipidemia[ICD10: E78.2] María Elenagael BASURTO TED APPIAH [facility] CPT-4: 53375 09/29/2019 ([id number]) OFFICE/OUTPATIENT VISIT EST Diagnosis: Essential (primary) hypertension[ICD10: I10] Diagnosis: Fall from bed, sequela[ICD10: W06.XXXS] María Elenamarcella Appiah KYLAH BRAUNGAEL Fabiola [facility] CPT-4: 24260 05/28/2019 ([id number]) NURSE/OUTPATIENT VISIT EST Diagnosis: Essential (primary) hypertension[ICD10: I10] María Elena Orendmaryjane APPIA[facility] CPT-4: 49252 05/19/2019 ([id number]) OFFICE/OUTPATIENT VISIT EST Diagnosis: Essential (primary) hypertension[ICD10: I10] Diagnosis: Type 2 diabetes mellitus with hyperglycemia[ICD10: E11.65] Diagnosis: Intervertebral disc disorders with radiculopathy, 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] Diagnosis: Hormone replacement therapy[ICD10: Z79.890] María Elena MONTEROQUELINE Fabiola APPIA[facility] CPT-4: 54034 01/22/2019 ([id number]) OFFICE/OUTPATIENT VISIT EST Diagnosis: Essential (primary) hypertension[ICD10: I10] Diagnosis: Type 2 diabetes mellitus with hyperglycemia[ICD10: E11.65] María Elena APPIA[facility] CPT-4: 06960 09/30/2018 ([id number]) OFFICE/OUTPATIENT VISIT EST Diagnosis: Pain in left elbow[ICD10: M25.522] Diagnosis: Acute stress reaction[ICD10: F43.0] Diagnosis: Primary insomnia[ICD10: F51.01] Diagnosis: Abnormal weight gain[ICD10: R63.5] María Elena APPIAH [facility] [place] CPT-4: 99132 08/27/2018 ([id number]) OFFICE/OUTPATIENT VISIT EST Diagnosis: Acute recurrent sinusitis, unspecified[ICD10: J01.91] Diagnosis: Follicular disorder, unspecified[ICD10: L73.9] Diagnosis: Tinea corporis[ICD10: B35.4] María Elena APPIAH [facility] [place] CPT-4: 26687 08/09/2018 ([id number]) OFFICE/OUTPATIENT VISIT EST Diagnosis: Tinea corporis[ICD10: B35.4] Diagnosis: Anxiety disorder, unspecified[ICD10: F41.9] Diagnosis: Menopausal and female climacteric states[ICD10: N95.1] María Elena APPIAH [facility] [place] CPT-4: 25083 07/22/2018 ([id number]) NURSE/OUTPATIENT VISIT EST Diagnosis: Cellulitis of right toe[ICD10: L03.031] María Elena APPIAH [facility] [place] CPT-4: 64030 06/19/2018 ([id number]) OFFICE/OUTPATIENT VISIT EST Diagnosis: Cellulitis of right toe[ICD10: L03.031] [facility] C[facility]: 39158 06/17/2018 ([id number]) OFFICE/OUTPATIENT VISIT EST Diagnosis: Migraine without aura, intractable, without status migrainosus[ICD10: G43.019] Diagnosis: Zoster without complications[ICD10: B02.9] Kathleen APPIAH [facility] [place] CPT-4: 91985 05/16/2018 ([id number]) OFFICE/OUTPATIENT VISIT EST Diagnosis: Cellulitis of right lower limb[ICD10: L03.115] Kathleen APPIAH [facility] [place] CPT-4: 20705 03/20/2018 ([id number]) OFFICE/OUTPATIENT VISIT EST Diagnosis: Cellulitis of right lower limb[ICD10: L03.115] Kathleen APPIAH [facility] [place] CPT-4: 49220 03/18/2018 ([id number]) OFFICE/OUTPATIENT VISIT EST Diagnosis: Cellulitis of right lower limb[ICD10: L03.115] Kathleen APPIAH DO [facility] CPT-4: 95469 03/15/2018 ([id number]) OFFICE/OUTPATIENT VISIT EST Diagnosis: Acute sinusitis, unspecified[ICD10: J01.90] Kathleen APPIAH [facility] CPT-4: 17936 02/11/2018 ([id number]) NURSE/OUTPATIENT VISIT EST Diagnosis: Otitis media, unspecified, right ear[ICD10: H66.91] María Elena APPIAH DO [facility] CPT-4: 65274 02/01/2018 ([id number]) OFFICE/OUTPATIENT VISIT EST Diagnosis: Acute suppurative otitis media without spontaneous rupture of ear drum, left ear[ICD10: H66.002] Diagnosis: Abnormal weight gain[ICD10: R63.5] Diagnosis: Intervertebral disc disorders with radiculopathy, 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] Kathleen APPIA[facility] CPT-4: 99 214 01/30/2018 ([id number]) PREV VISIT EST AGE 40-64 Diagnosis: Encounter for general adult medical examination without abnormal findings[ICD10: Z00.00] Diagnosis: Essential (primary) hypertension[ICD10: I10] Diagnosis: Mixed hyperlipidemia[ICD10: E78.2] Diagnosis: Type 2 diabetes mellitus with hyperglycemia[ICD10: E11.65] Diagnosis: 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] María Elena APPIA[facility] CPT-4: 83144 12/18/2017 ([id number]) OFFICE/OUTPATIENT VISIT EST Diagnosis: Cellulitis of right toe[ICD10: L03.031] Diagnosis: Mixed hyperlipidemia[ICD10: E78.2] Diagnosis: Essential (primary) hypertension[ICD10: I10] Diagnosis: Hyperglycemia, unspecified[ICD10: R73.9] Diagnosis: Nontoxic goiter, 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] María Elena APPIAH [facility] CPT-4: 11546 12/10/2017 ([id number]) OFFICE/OUTPATIENT VISIT EST Diagnosis: Cellulitis of right toe[ICD10: L03.031] Diagnosis: Acute sinusitis, unspecified[ICD10: J01.90] Kathleen APPIAH DO [facility] CPT-4: 22073 12/07/2017 OFFICE/OUTPATIENT VISIT EST Diagnosis: Acute maxillary sinusitis, unspecified[ICD10: J01.00] Kathleen APPIAH DO [facility] CPT-4: 66471 10/08/2017 ([id number]) OFFICE/OUTPATIENT VISIT EST Diagnosis: Cellulitis of left toe[ICD10: L03.032] María Elena APPIAH DO [facility] CPT-4: 51998 09/21/2017 ([id number]) OFFICE/OUTPATIENT VISIT EST Diagnosis: Insomnia, unspecified[ICD10: G47.00] Diagnosis: Major depressive disorder, single episode, unspecified[ICD10: F32.9] Diagnosis: Anxiety disorder, unspecified[ICD10: F41.9] Diagnosis: Cellulitis of left toe[ICD10: L03.032] Diagnosis: Snoring[ICD10: R06.83] Kathleen APPIAH DO [facility] CPT-4: 37657 09/20/2017 ([id number]) OFFICE/OUTPATIENT VISIT EST Diagnosis: Cellulitis of left toe[ICD10: L03.032] María Elena APPIAH DO [facility] CPT-4: 39485 07/19/2017 OFFICE/OUTPATIENT VISIT EST Diagnosis: Chronic sinusitis, unspecified[ICD10: J32.9] Diagnosis: Generalized hyperhidrosis[ICD10: R61] Kathleen APPIAH DO [facility] CPT-4: 43018 06/27/2017 ([id number]) OFFICE/OUTPATIENT VISIT EST Diagnosis: Intervertebral disc disorders with radiculopathy, 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] Diagnosis: Primary insomnia[ICD10: F51.01] Diagnosis: Other fatigue[ICD10: R53.83] María Elena APPIAH DO [facility] CPT-4: 33390 04/10/2017 ([id number]) OFFICE/OUTPATIENT VISIT EST Diagnosis: Primary insomnia[ICD10: F51.01] Diagnosis: Localized edema[ICD10: R60.0] Diagnosis: 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] María Elena APPIAH [facility] CPT-4: 38353 12/13/2016 ([id number]) OFFICE/OUTPATIENT VISIT EST Diagnosis: Primary insomnia[ICD10: F51.01] Diagnosis: Cyanosis[ICD10: R23.0] María Elena Bazzi [facility] CPT-4: 76156 11/01/2016 ([id number]) PREV VISIT EST AGE 40-64 Diagnosis: Encounter for gynecological examination (general) (routine) without abnormal findings[ICD10: Z01.419] Diagnosis: Encounter for routine child health examination without abnormal findings[ICD10: Z00.129] María Elena APPIAH [facility] CPT-4: 79022 10/17/2016 ([id number]) OFFICE/OUTPATIENT VISIT EST Diagnosis: Other seasonal allergic rhinitis[ICD10: J30.2] María Elena APPIAH [facility] CPT-4: 56459 10/10/2016 ([id number]) OFFICE/OUTPATIENT VISIT EST Diagnosis: Pain in left arm[ICD10: M79.602] Diagnosis: Contact with and (suspected) exposure to potentially hazardous body fluids[ICD10: Z77.21] Diagnosis: 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, 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] Diagnosis: Unspecified open wound, right foot, sequela[ICD10: S91.301S] María Elena APPIAH [employer] CPT-4: 52901 09/19/2016 ([id number]) OFFICE/OUTPATIENT VISIT EST Diagnosis: Chronic sinusitis, unspecified[ICD10: J32.9] Diagnosis: Allergic rhinitis due to pollen[ICD10: J30.1] María Elena APPIAH [employer] CPT-4: 95454 08/24/2016 ([id number]) OFFICE/OUTPATIENT VISIT EST Diagnosis: Acute bronchitis, unspecified[ICD10: J20.9] María Elena APPIAH DO [facility] CPT-4: 78895 08/16/2016 ([id number]) OFFICE/OUTPATIENT VISIT EST Diagnosis: Otitis media, unspecified, right ear[ICD10: H66.91] Diagnosis: Acute bronchitis, unspecified[ICD10: J20.9] María Elena APPIAH DO [facility] CPT-4: 00819 08/10/2016 ([id number]) OFFICE/OUTPATIENT VISIT EST Diagnosis: Acute recurrent sinusitis, unspecified[ICD10: J01.91] Diagnosis: Allergic rhinitis due to pollen[ICD10: J30.1] María Elena APPIAH DO [facility] CPT-4: 13569 08/02/2016 ([id number]) OFFICE/OUTPATIENT VISIT EST Diagnosis: Pain in unspecified joint[ICD10: M25.50] María Elena APPIAH DO [facility] CPT-4: 61258 07/27/2016 OFFICE/OUTPATIENT VISIT EST Diagnosis: 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] Diagnosis: Acute recurrent sinusitis, unspecified[ICD10: J01.91] Diagnosis: Other fatigue[ICD10: R53.83] Diagnosis: Primary insomnia[ICD10: F51.01] Diagnosis: Pain in unspecified joint[ICD10: M25.50] María Elena APPIAH DO [facility] CPT-4: 26989 07/20/2016 ([id number]) OFFICE/OUTPATIENT VISIT EST Diagnosis: Blister (nonthermal), left great toe, initial encounter[ICD10: S90.422A] Loan APPIAH DO [facility] CPT-4: 04931 ([id number]) OFFICE/OUTPATIENT VISIT EST Diagnosis: Acute recurrent sinusitis, unspecified[ICD10: J01.91] María Elena APPIAH DO [facility] CPT-4: 26598 05/25/2016 ([id number]) OFFICE/OUTPATIENT VISIT EST Diagnosis: Acute sinusitis, unspecified[ICD10: J01.90] María Elena APPIAH DO [facility] CPT-4: 79126 04/26/2016 ([id number]) OFFICE/OUTPATIENT VISIT EST Diagnosis: Flushing[ICD10: R23.2] Diagnosis: Primary insomnia[ICD10: F51.01] María Elena APPIAH DO [facility] CPT-4: 45051 03/02/2016 ([id number]) OFFICE/OUTPATIENT VISIT EST Diagnosis: Other seasonal allergic rhinitis[ICD10: J30.2] Loan APPIAH DO [facility] CPT-4: 81569 02/09/2016 ([id number]) OFFICE/OUTPATIENT VISIT EST Diagnosis: Primary insomnia[ICD10: F51.01] Diagnosis: Urinary tract infection, site not specified[ICD10: N39.0] María Elena APPIAH DO [facility] CPT-4: 16834 01/24/2016 ([id number]) OFFICE/OUTPATIENT VISIT EST Diagnosis: Other specified disorders of Eustachian tube, bilateral[ICD10: H69.83] Diagnosis: Allergic rhinitis, unspecified[ICD10: J30.9] Loan APPIAH DO [facility] CPT-4: 24702 12/23/2015 ([id number]) OFFICE/OUTPATIENT VISIT EST Diagnosis: Acute recurrent sinusitis, unspecified[ICD10: J01.91] Diagnosis: 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] Diagnosis: Allergic rhinitis, unspecified[ICD10: J30.9] María Elena APPIAH DO [facility] CPT-4: 08222 12/08/2015 ([id number]) OFFICE/OUTPATIENT VISIT EST Diagnosis: Allergic rhinitis, unspecified[ICD10: J30.9] Diagnosis: Pain in unspecified joint[ICD10: M25.50] María Elena APPIAH DO [facility] CPT-4: 22175 10/07/2015 ([id number]) OFFICE/OUTPATIENT VISIT EST Diagnosis: Essential (primary) hypertension[ICD10: I10] María Elena APPIAH DO [facility] CPT-4: 77327 10/06/2015 OFFICE/OUTPATIENT VISIT EST Diagnosis: Localized enlarged lymph nodes[ICD10: R59.0] Diagnosis: Local infection of the skin and subcutaneous tissue, unspecified[ICD10: L08.9] June APPIAH DO [facility] CPT- 4: 08894 09/14/2015 ([id number]) OFFICE/OUTPATIENT VISIT EST Diagnosis: Essential (primary) hypertension[ICD10: I10] Diagnosis: Actinic keratosis[ICD10: L57.0] María Elena APPIAH DO [facility] CPT-4: 64038 09/07/2015 ([id number]) OFFICE/OUTPATIENT VISIT EST Diagnosis: Essential (primary) hypertension[ICD10: I10] Diagnosis: Acute stress reaction[ICD10: F43.0] María Elena APPIAH [facility] CPT-4: 22379 08/18/2015 ([id number]) OFFICE/OUTPATIENT VISIT EST Diagnosis: Essential (primary) hypertension[ICD10: I10] María Elena APPIAH [facility] CPT-4: 89947 07/07/2015 ([id number]) OFFICE/OUTPATIENT VISIT EST Diagnosis: Essential (primary) hypertension[ICD10: I10] María Elena APPIAH DO [facility] CPT-4: 77296 06/24/2015 ([id number]) OFFICE/OUTPATIENT VISIT EST Diagnosis: Essential (primary) hypertension[ICD10: I10] María Elena APPIAH DO [facility] CPT-4: 40049 06/21/2015 ([id number]) OFFICE/OUTPATIENT VISIT EST Diagnosis: Essential (primary) hypertension[ICD10: I10] Diagnosis: Mixed hyperlipidemia[ICD10: E78.2] Diagnosis: Acute stress reaction[ICD10: F43.0] Diagnosis: Primary insomnia[ICD10: F51.01] María Elena APPIAH DO [facility] CPT-4: 88549 06/16/2015 ([id number]) OFFICE/OUTPATIENT VISIT EST Diagnosis: INSOMNIA NOS[ICD9: 780.52] Diagnosis: HYPERTENSION[ICD9: 401.9] Diagnosis: Stress reaction[ICD9: 308.9] María Elena APPIAH DO [facility] CPT-4: 47220 06/02/2015 ([id number]) OFFICE/OUTPATIENT VISIT EST Diagnosis: HYPERTENSION[ICD9: 401.9] Diagnosis: Stress reaction[ICD9: 308.9] María Elena APPIAH DO [facility] CPT-4: 35849 05/20/2015 ([id number]) OFFICE/OUTPATIENT VISIT EST Diagnosis: Skin lesion[ICD9: 709.9] 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] María Elena APPIAH DO [facility] CPT-4: 82996 05/10/2015 ([id number]) OFFICE/OUTPATIENT VISIT EST Diagnosis: SINUSITIS, ACUTE[ICD9: 461.9] Diagnosis: ALLERGIC RHINITIS[ICD9: 477.9] Diagnosis: DERMATITIS NOS[ICD9: 692.9] María Elena REHMAN [facility] CPT-4: 44170 03/16/2015 OFFICE/OUTPATIENT VISIT EST Diagnosis: Otitis media[ICD9: 382.9] Diagnosis: SINUSITIS, ACUTE[ICD9: 461.9] June Sandra MARÍA ELENA APPIAH DO [facility] CPT-4: 34999 09/11/2014 ([id number]) OFFICE/OUTPATIENT VISIT EST Diagnosis: HYPERLIPIDEMIA NEC/NOS[ICD9: 272.4] María Elena APPIAH DO [facility] CPT-4: 06804 08/31/2014 ([id number]) OFFICE/OUTPATIENT VISIT EST Diagnosis: - I - HYPERTENSION[ICD9: 401.9] Diagnosis: HYPERLIPIDEMIA NEC/NOS[ICD9: 272.4] María Elena APPIAH DO [facility] CPT-4: 02097 08/27/2014 ([id number]) OFFICE/OUTPATIENT VISIT EST Diagnosis: ABDOMINAL PAIN[ICD9: 789.00] Diagnosis: DYSPEPSIA[ICD9: 536.8] Diagnosis: Thoracic back pain[ICD9: 724.1] María Elena APPIAH DO [facility] CPT-4: 11223 07/21/2014 ([id number]) OFFICE/OUTPATIENT VISIT EST Diagnosis: ALLERGIC RHINITIS[ICD9: 477.9] María Elena APPIAH DO [facility] CPT-4: 50550 07/15/2014 ([id number]) OFFICE/OUTPATIENT VISIT EST Diagnosis: EDEMA[ICD9: 782.3] Diagnosis: Chronic insomnia[ICD9: 780.52] María Elena APPIAH [facility] CPT-4: 76028 05/18/2014 ([id number]) OFFICE/OUTPATIENT VISIT EST Diagnosis: Thyromegaly[ICD9: 240.9] Diagnosis: - I - HYPERTENSION[ICD9: 401.9] Diagnosis: ROUTINE MEDICAL EXAM[ICD9: V70.0] Diagnosis: EDEMA[ICD9: 782.3] María Elena APPIAH [facility] CPT-4: 89408 05/14/2014 OFFICE/OUTPATIENT VISIT EST Diagnosis: BRONCHITIS, ACUTE[ICD9: 466.0] Diagnosis: SINUSITIS, ACUTE[ICD9: 461.9] María Elena APPIAH [facility] CPT-4: 96422 04/21/2014 OFFICE/OUTPATIENT VISIT EST Diagnosis: SINUSITIS, ACUTE[ICD9: 461.9] June Flores MARÍA ELENA APPIAH [facility] CPT-4: 46814 03/04/2014 ([id number]) OFFICE/OUTPATIENT VISIT EST Diagnosis: VACCINE FOR TDAP[ICD10: Z23] María Elena APPIAH [facility] CPT-4: 60253 02/27/2014 ([id number]) OFFICE/OUTPATIENT VISIT EST Diagnosis: Seborrheic keratoses, inflamed[ICD9: 702.11] Diagnosis: ACTINIC KERATOSIS[ICD9: 702.0] Diagnosis: INSOMNIA NOS[ICD9: 780.52] María Elena PANDYA [facility] CPT-4: 71326 01/13/2014 OFFICE/OUTPATIENT VISIT EST 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] Diagnosis: ALLERGIC RHINITIS[ICD9: 477.9] Diagnosis: Serous otitis media[ICD9: 381.4] María Elena WYANDER [facility] CPT-4: 30088 12/24/2013 ([id number]) OFFICE/OUTPATIENT VISIT EST Diagnosis: SINUSITIS, ACUTE[ICD9: 461.9] Diagnosis: ALLERGIC RHINITIS[ICD9: 477.9] 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] María Elena APPIAH [facility] CPT-4: 85699 11/12/2013 ([id number]) OFFICE/OUTPATIENT VISIT EST Diagnosis: ALLERGIC RHINITIS[ICD9: 477.9] Diagnosis: SINUSITIS, ACUTE[ICD9: 461.9] María Elena APPIAH [facility] CPT-4: 54254 10/21/2013 ([id number]) OFFICE/OUTPATIENT VISIT EST Diagnosis: ASYMPTOMATIC VARICOSE VEINS[ICD9: 454.9] Diagnosis: INSOMNIA NOS[ICD9: 780.52] Mar[facility] Elena [facility] C[facility]: 36162 09/22/2013 OFFICE/OUTPATIENT VISIT EST Diagnosis: SINUSITIS, ACUTE[ICD9: 461.9] June APPIAH [facility] CPT-4: 51992 08/27/2013 ([id number]) OFFICE/OUTPATIENT VISIT EST Diagnosis: CEPHALGIA[ICD9: 784.0] Diagnosis: CEPHALGIA, TENSION[ICD9: 307.81] 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] María Elena APPIAH [facility] CPT-4: 65578 08/04/2013 ([id number]) OFFICE/OUTPATIENT VISIT EST Diagnosis: Cervicalgia[ICD9: 723.1] Diagnosis: SPASM OF MUSCLE[ICD9: 728.85] Diagnosis: CEPHALGIA, TENSION[ICD9: 307.81] María Elena APPIAH [facility] CPT-4: 28874 07/23/2013 ([id number]) OFFICE/OUTPATIENT VISIT EST 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] Diagnosis: ALLERGIC RHINITIS[ICD9: 477.9] María Elena APPIAH [facility] CPT-4: 02425 06/23/2013 ([id number]) OFFICE/OUTPATIENT VISIT EST Diagnosis: ALLERGIC RHINITIS[ICD9: 477.9] Diagnosis: ACUTE SEROUS OTITIS MEDIA[ICD9: 381.01] 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] María Elena Seamusdawn JUARES AlanJj TD [facility] CPT-4: 48199 05/26/2013 ([id number]) OFFICE/OUTPATIENT VISIT EST Diagnosis: HYPERTENSION[ICD9: 401.9] Diagnosis: EDEMA[ICD9: 782.3] Diagnosis: Serous otitis media[ICD9: 381.4] María Elena Seamusdawn JUARES AlanJj TD [facility] CPT-4: 21730 04/16/2013 ([id number]) OFFICE/OUTPATIENT VISIT EST Diagnosis: SINUSITIS, ACUTE[ICD9: 461.9] Diagnosis: ALLERGIC RHINITIS[ICD9: 477.9] Diagnosis: EDEMA[ICD9: 782.3] Diagnosis: Thyromegaly[ICD9: 240.9] Diagnosis: MALAISE AND FATIGUE[ICD9: 780.79] María Elena Lopez AlanJj [facility]: 81672 03/05/2013 ([id number]) OFFICE/OUTPATIENT VISIT EST Diagnosis: PAIN, LOWER BACK[ICD9: 724.2] Diagnosis: SPASM OF MUSCLE[ICD9: 728.85] María Elena JUARES AlanJj [facility] CPT-[facility]: 91432 12/23/2012 OFFICE/OUTPATIENT VISIT EST Diagnosis: Low back pain[ICD9: 724.2] Lashawn Hicks [facility]: 97386 12/16/2012 ([id number]) OFFICE/OUTPATIENT VISIT EST Diagnosis: PAIN, LOWER BACK[ICD9: 724.2] Diagnosis: SCIATICA[ICD9: 724.3] Diagnosis: Lumbar herniated disc[ICD9: 722.10] María Elena COLON AlanJj [facility] CPT-[facility]: 44201 12/09/2012 ([id number]) OFFICE/OUTPATIENT VISIT EST Diagnosis: PAIN, LOWER BACK[ICD9: 724.2] Diagnosis: SCIATICA[ICD9: 724.3] Diagnosis: LUMBAR DISC DISPLACEMENT[ICD9: 722.10] María Elenamarcella MONTEROLui APPIAH DO [facility] CPT-4: 09198 12/04/2012 OFFICE/OUTPATIENT VISIT EST Diagnosis: Pneumonia[ICD9: 486] Mary SerranoNomanJames APPIAH DO [facility] CPT-4: 66405 11/22/2012 ([id number]) OFFICE/OUTPATIENT VISIT EST Diagnosis: PNEUMONIA, ORGANISM[ICD9: 486] Diagnosis: Exacerbation of RAD (reactive airway disease)[ICD9: 493.92] María Elena APPIAH DO [facility] CPT-4: 89346 11/21/2012 OFFICE/OUTPATIENT VISIT EST Diagnosis: HYPERTENSION[ICD9: 401.9] Diagnosis: Cephalgia[ICD9: 784.0] Lashawn Eckert MARÍA ELENA APPIAH DO [facility] CPT-4: 24086 10/29/2012 ([id number]) OFFICE/OUTPATIENT VISIT EST Diagnosis: MALAISE AND FATIGUE[ICD9: 780.79] Diagnosis: ARTHRALGIA-MULTIPLE SITES[ICD9: 719.49] María Elena Waymindimaryjane APPIAH DO [facility] CPT-4: 91903 10/14/2012 ([id number]) OFFICE/OUTPATIENT VISIT EST Diagnosis: URINARY FREQUENCY[ICD9: 788.41] María Elena APPIAH DO [facility] CPT-4: 49785 09/27/2012 ([id number]) OFFICE/OUTPATIENT VISIT EST Diagnosis: MALAISE AND FATIGUE[ICD9: 780.79] Diagnosis: ARTHRALGIA-MULTIPLE SITES[ICD9: 719.49] María Elena Seamusdawn KYLAH APPIAH DO [facility] CPT-4: 70241 09/25/2012 ([id number]) OFFICE/OUTPATIENT VISIT EST Diagnosis: SINUSITIS, ACUTE[ICD9: 461.9] 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] María Elena Marivelmaryjane MARÍA ELENA APPIAH DO [facility] CPT-4: 67994 08/29/2012 OFFICE/OUTPATIENT VISIT EST Diagnosis: ACTINIC KERATOSIS[ICD9: 702.0] Diagnosis: Inflamed seborrheic keratosis[ICD9: 702.11] Diagnosis: Skin cancer of face[ICD9: 173.31] Diagnosis: HYPERTENSION[ICD9: 401.9] María Elena WAY NDER [facility] CPT-4: 28715 08/12/2012 ([id number]) OFFICE/OUTPATIENT VISIT EST Diagnosis: ARTHRALGIA-MULTIPLE SITES[ICD9: 719.49] Diagnosis: GOUT[ICD9: 274.9] Diagnosis: HYPERTENSION[ICD9: 401.9] Diagnosis: Tachycardia[ICD9: 785.0] María Elena HU KARLOS [facility] CPT-4: 96842 05/06/2012 ([id number]) OFFICE/OUTPATIENT VISIT EST Diagnosis: INSOMNIA NOS[ICD9: 780.52] María Elena PANDYA [facility] CPT-4: 14020 04/03/2012 ([id number]) OFFICE/OUTPATIENT VISIT EST Diagnosis: INSOMNIA NOS[ICD9: 780.52] Diagnosis: HYPERTENSION[ICD9: 401.9] Diagnosis: MIGRAINE NOS/NOT INTRCBL[ICD9: 346.90] María Elena MARIN SJj [facility]: 25672 03/19/2012 ([id number]) OFFICE/OUTPATIENT VISIT EST Diagnosis: CELLULITIS[ICD9: 682.9] Diagnosis: Ankle pain[ICD9: 719.47] Diagnosis: HYPERTENSION[ICD9: 401.9] María Elena WAY NDER [facility] CPT-4: 94529 02/20/2012 ([id number]) OFFICE/OUTPATIENT VISIT EST Diagnosis: MIGRAINE NOS/NOT INTRCBL[ICD9: 346.90] Diagnosis: Vomiting[ICD9: 787.03] María Elena ValdesJj MARIVELE R [facility] CPT-4: 83704 01/30/2012 ([id number]) OFFICE/OUTPATIENT VISIT EST Diagnosis: EDEMA[ICD9: 782.3] Diagnosis: HYPERTENSION[ICD9: 401.9] Diagnosis: ALLERGIC RHINITIS[ICD9: 477.9] Diagnosis: ARTHRALGIA-MULTIPLE SITES[ICD9: 719.49] María Elena ValdesJj APPIAH [facility] CPT-4: 44076 01/24/2012 ([id number]) OFFICE/OUTPATIENT VISIT EST Diagnosis: SPASM OF MUSCLE[ICD9: 728.85] Diagnosis: Thoracic back pain[ICD9: 724.1] Diagnosis: Cervical pain[ICD9: 723.1] María Elena PANDYA [facility] CPT-4: 53084 01/10/2012 OFFICE/OUTPATIENT VISIT EST Diagnosis: PAIN, LOWER BACK[ICD9: 724.2] Diagnosis: LUMBAR DISC DISPLACEMENT[ICD9: 722.10] María Elena APPIAH [facility] CPT-4: 81300 12/11/2011 OFFICE/OUTPATIENT VISIT EST Diagnosis: MIGRAINE NOS/NOT INTRCBL[ICD9: 346.90] Diagnosis: SINUSITIS, ACUTE[ICD9: 461.9] María Elena APPIAH [facility] CPT-4: 60552 11/09/2011 OFFICE/OUTPATIENT VISIT EST Diagnosis: MIGRAINE NOS/NOT INTRCBL[ICD9: 346.90] Diagnosis: LYMPHADENOPATHY[ICD9: 785.6] María Elena APPIAH [facility] CPT-4: 54346 09/13/2011 OFFICE/OUTPATIENT VISIT EST Diagnosis: MALAISE AND FATIGUE[ICD9: 780.79] Diagnosis: ARTHRALGIA-MULTIPLE SITES[ICD9: 719.49] María Elena Waymindimaryjane BRAUNGAEL Fabiola APPIAH [facility] CPT-4: 20426 08/31/2011 OFFICE/OUTPATIENT VISIT EST Diagnosis: SINUSITIS, ACUTE[ICD9: 461.9] María Elena APPIAH [facility] CPT-4: 54868 07/20/2011 OFFICE/OUTPATIENT VISIT EST Diagnosis: HYPERTENSION[ICD9: 401.9] Diagnosis: PAIN, LOWER BACK[ICD9: 724.2] Diagnosis: SPASM OF MUSCLE[ICD9: 728.85] María Elena APPIAH [facility] CPT-4: 81959 07/06/2011 OFFICE/OUTPATIENT VISIT EST Diagnosis: MIGRAINE NOS/NOT INTRCBL[ICD9: 346.90] Diagnosis: HYPERTENSION[ICD9: 401.9] María Elena [facility] CPT-4: 98767 05/22/2011 OFFICE/OUTPATIENT VISIT EST Diagnosis: SINUSITIS, ACUTE[ICD9: 461.9] Diagnosis: MIGRAINE NOS/NOT INTRCBL[ICD9: 346.90] Diagnosis: Dehydration[ICD9: 276.51] Diagnosis: Vomiting[ICD9: 787.03] María Elena Hicks [facility] CPT-4: 03415 05/09/2011 ([id number]) OFFICE/OUTPATIENT VISIT EST María Elena ISAAC [facility] CPT-4: 13653 02/14/2011 ([id number]) OFFICE/OUTPATIENT VISIT EST María Elena ISAAC [facility] CPT-4: 09878 02/03/2011 ([id number]) OFFICE/OUTPATIENT VISIT EST María Elena ISAAC [facility] CPT-4: 64928 01/31/2011 ([id number]) OFFICE/OUTPATIENT VISIT EST María Elena ISAAC [facility] CPT-4: 29849 01/25/2011 ([id number]) OFFICE/OUTPATIENT VISIT EST María Elena ISAAC [facility] CPT-4: 74836 01/18/2011 ([id number]) OFFICE/OUTPATIENT VISIT EST María Elena ISAAC [facility] CPT-4: 87378 11/29/2010 ([id number]) OFFICE/OUTPATIENT VISIT, EST María Elena REED [facility] CPT-4: 62108 10/10/2010 ([id number]) OFFICE/OUTPATIENT VISIT, EST María Elena MONTERO QUELINE [facility] CPT-4: 41666 06/07/2010 ([id number]) OFFICE/OUTPATIENT VISIT, EST María Elenamarcella BRAUNLINE [facility] CPT-4: 63214 04/27/2010 ([id number]) OFFICE/OUTPATIENT VISIT, EST María Elena BRAUNLINE [facility] CPT-4: 16716 04/05/2010 ([id number]) OFFICE/OUTPATIENT VISIT, EST María Elena [facility] CPT-4: 77506 03/09/2010 ([id number]) OFFICE/OUTPATIENT VISIT, EST María [facility] CPT-4: 28582 03/03/2010 ([id number]) OFFICE/OUTPATIENT VISIT, EST María Elena [facility] CPT-4: 75201 01/17/2010 ([id number]) PREV VISIT, EST, AGE 40-64 María Elena [facility] CPT-4: 67249 12/27/2009 Plan of Care Planned Activity Notes Codes Status Date Visit Diagnosis Plan: Type 2 diabetes mellitus with hy perglycemia Discussion: Januvia 100mg daily Glimepride 2mg po BID Accuchecks BID Call in 2 weeks with BS readings Get formulary book ICD-9 : 250.02 ICD-10 : E11.65 11/20/2019 Patient Education: glimepiride- [employer] Coupon [id number] Completed 11/20/2019 Patient Education: Januvia- [employer] Coupon [id number] Completed 11/20/2019 Visit Diagnosis Plan: Ingrowing nail [...] ICD-10 : E11.65 10/07/2019 Appointment: Kathleen Zuniga [address] [place], [place] [phone] OFFICE SURGERY 10/07/2019 Visit Diagnosis Plan: Hypertriglyceridemia [...] : E11.65 09/30/2019 Appointment: María Elena Appiahtel: [address] [place], [place] [phone] [place] CHECK UP 09/30/2019 Patient Education: Premarin- [employer] Coupon [id number] [email or web address].com/samplemd/resources/getResource/[email or web address] Completed 09/30/2019 Appointment: María Elena Appiah WPtel: [address] [place], [place] [phone] [place] LAB 09/29/2019 Appointment: María Elena Appiah WPtel: [address] [place], [place] [phone] [place] Won't have the new insurance till [...] : W06.XXXS 05/28/2019 Appointment: María Elena Appiahtel: [address] [place], [place] [phone] [place] FOLLOW UP 05/28/2019 Appointment: María Elena Appiah WPtel: [address] [place], [place] [phone] [place] BP CHECK 05/19/2019 Visit Diagnosis Plan: [...] : Z79.890 01/22/2019 Appointment: María Elena Appiahtel: [address] [place], [place] [phone] [place] FOLLOW UP 01/22/2019 Patient Education: estradiol- [employer] Coupon [id number] [email or web address]/samplemd/resources/getResource/61/[email or web address] Completed 01/22/2019 Appointment: María Elena Appiahtel: [address] [place], [place] [phone] [place] CANCELED 01/20/2019 Appointment: María Elena Appiahl: [address] [place], [place] [phone] [place] LM NO SHOW 01/06/2019 Appointment: María Elena Appiah WPtel: [address] [place], [place] [phone] [place] CANCELED 10/17/2018 Appointment: María Elena Appiah WPtel: [address] [place] [address] [place] BP CHECK 10/09/2018 Visit Diagnosis Plan: [...] I10 09/30/2018 Appointment: María Elena Appiah WPtel: [address] [place] [address] [place] FOLLOW UP 09/30/2018 Visit Diagnosis Plan: [...] : F51.01 08/27/2018 Appointment: María Elena Appiahtel: [address] [place], [place] [phone] ACUTE ILLNESS 08/27/2018 Appointment: María Elena Appiah WPtel: [address] [place] [address] [place] Patient stated she went out to [...] Tyle... 08/09/2018 Appointment: María Elena Appiah WPtel: [address] [place] [address] ACUTE ILLNESS 08/09/2018 Appointment: María Elena Appiah WPtel: [address] [place] [address] NO SHOW 08/08/2018 Visit Diagnosis Plan: Anxiety [...] B35.4 07/22/2018 Appointment: María Elena Appiah WPtel: [address] [place] [address] ACUTE ILLNESS 07/22/2018 Appointment: María Elena pApiah WPtel: [address] [place] [address] [place] INJECTION 06/19/2018 Patient Education: Patient Medication [...] ICD-10 : L03.031 06/17/2018 Appointment: Kathleen Zuniga [address] [place] [address] ACUTE ILLNESS 06/17/2018 Patient Education: Patient Medication [...] ICD-10 : B02.9 05/16/2018 Appointment: Kathleen Zuniga [address] [place], [place] [address] ACUTE ILLNESS 05/16/2018 Patient Education: Patient Medication [...] ICD-10 : L03.115 03/20/2018 Appointment: Kathleen Zuniga [address] [place], [place] [address] FOLLOW UP 03/20/2018 Patient Education: Patient Medication [...] : L03.115 03/18/2018 Appointment: Kathleen Zuniga [address] [place] [address] FOLLOW UP 03/18/2018 Patient Education: Patient Medication [...] ICD-10 : L03.115 03/15/2018 Appointment: Kathleen Zuniga [address] [place], [place] [address] ACUTE ILLNESS 03/15/2018 Patient Education: Patient Medication [...] ICD-10 : J01.90 02/11/2018 Appointment: Kathleen Zuniga [address] [place], [place] [phone] ACUTE ILLNESS 02/11/2018 Patient Education: Patient Medication Summary Completed 02/11/2018 Appointment: María Elena Appiah WPtel: [phone] [phone] INJECTION 02/01/2018 Patient Education: Patient Medication Summary [...] ICD-10 : M51.16 01/30/2018 Appointment: Kathleen Zuniga [address] [place] [address] ACUTE ILLNESS 01/30/2018 Patient Education: Patient Medication [...] 12/18/2017 Appointment: María Elena Appiah WPtel: [phone] [id number] Annual Well Visit 12/18/2017 Patient Education: Patient Medication Summary Completed 12/18/2017 Care Plan: Referral Order SNOMED-CT : [id number] Pending 12/18/2017 Appointment: María Elena Appiah WPtel: [phone] [phone] [place] INJECTION 12/10/2017 Patient Education: Patient Medication [...] ICD-10 : L03.031 12/07/2017 Appointment: Kathleen Zuniga [address] [place] [address] ACUTE ILLNESS 12/07/2017 Patient Education: Patient Medication [...] ICD-10 : J01.00 10/08/2017 Appointment: Kathleen Zuniga [address] [place] [address] ACUTE ILLNESS 10/08/2017 Patient Education: Patient Medication Summary Completed 10/08/2017 Appointment: María Elena Appiah WPtel: [phone] [id number] [place] INJECTION 09/21/2017 Patient Education: Patient Medication [...] : R06.83 09/20/2017 Appointment: Kathleen Zuniga [address] [place], [place] [phone] ACUTE ILLNESS 09/20/2017 Patient Education: [...] ICD-10 : L60.0 08/29/2017 Appointment: Kathleen Zuniga [address] [place] [address] OFFICE SURGERY 08/29/2017 Patient Education: Patient Medication Summary Completed 08/29/2017 Visit Diagnosis Plan: Actinic keratosis Discussion: Cr yotherapy as above ICD-9 : 702.0 ICD-10 : L57.0 08/01/2017 Appointment: María Elena Appiah WPtel: [address] [place] [address] OFFICE SURGERY 08/01/2017 Patient Education: Patient Medication Summary Completed 08/01/2017 Appointment: María Elena Appiah WPtel: [address] [place] [address] PATIENT THOUGHT APPOINTMENT WAS TOMORROW 07/26/17 CALLED 15 MINUTES BEFORE APPT TO SAY SHE DIDN'T HAVE ANYONE TO COVER HER BUSINESS AND WOULD NOT MAKE IT NO SHOW 07/25/2017 Visit Diagnosis Plan: Cellulitis of left toe Discussio n: Clindamycin and notify if worsening or persistis ICD-9 : 681.10 ICD-10 : L03.032 07/19/2017 Appointment: María Elena Appiah WPtel: [address] [place], [place] [phone] MEDICATION REVIEW 07/19/2017 Patient Education: Patient Medication Summary Completed 07/19/2017 Appointment: María Elena Appiah WPtel: [address] [place], [place] [phone] CANCELED 07/04/2017 Visit Diagnosis Plan: Generalized hyperhidrosis Discus ian: CBC, CMP, TSH, free T4 ordered to assess. will review labs. ICD-9 : 780.8 ICD-10 : R61 06/27/2017 Visit Diagnosis Plan: Chronic sinusitis, unspecified D iscussion: Referral sent to dr. albarado in [place] per patient request. patient has been treated multiple times for sinus infections with no recovery. patient was seen by dr sanchez in the past with no interventions. patient has deviated septum which may be affecting her sinuses. 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, including hip Discussion: Shave removal of above lesio n--sent to pathology ICD-9 : 216.7 ICD-10 : D23.72 01/24/2017 Appointment: María Elena Appiah WPtel: [address] [place], [place] [phone] 01/23 confirmed ~sl OFFICE SURGERY 01/24/2017 Patient Education: Patient Medication Summary Completed 01/24/2017 Appointment: Loan Sánchez [address] [place], [place] [phone] 01/09 rescheduled~sl RESCHEDULED 01/15/2017 Visit [...] 12/13/2016 [facility]ment[facility] [phone] [id number] [place] 12/12 confirmed ~ MEDICATION REVIEW 12/13/2016 Patient Education: Patient Medication Summary Completed 12/13/2016 App[facility]ment: [facility]ía [facility] [phone] [id number] [place] rescheduled for 12/13/16 at 11am RESCHEDULED 0 12/06/2016 Appointment: María Elena [facility] [phone] [id number] [place] CANCELED 11/23/2016 Patient Education: Patient [...] 11/01/2016 App[facility]ment: [facility]ía [facility] [phone] [id number] [place] 10/31 lm `sl 11/01 lm`sl MEDICATION REVIEW 017 Patient Education: Patient Medication Summary Completed 11/01/2016 Referral: Canelo Overton WPtel: [phone] [id number] [place] Referral Initiated 10/30/2016 Visit Diagnosis Plan: [...] Z01.419 10/17/2016 Appointment: María Elena Appiah WPtel: [address] [place], [place] [phone] 10/16 confirmed ~sl PAP 10/17/2016 Patient Education: Patient Medication Summary Completed 10/17/2016 Care Plan: MAMMOGRAM SCREENING LOINC : 2 [phone] Pending 10/17/2016 Visit Diagnosis Plan: Other seasonal allergic rhinitis Discussion: Decadron/Garamycin Nasal [place] Mix Too soon for steroid Retry zyrtec 10mg daily ICD-9 : 477.9 ICD-10 : J30.2 10/10/2016 Appointment: María Elena Appiah WPtel: [address] [place], [place] [phone] [place] FOLLOW UP 10/10/2016 Patient Education: Patient Medication Summary Completed 10/10/2016 Appointment: María Elena Appiah WPtel: [address] [place], [place] [id number] 10/02 reschedule `sl RESCHEDULED 10/02/2016 Visit Plan: See surgery for removal of n ew left arm lesion and right foot lesion Lyrica to use next month for left arm paresthesias Continue current meds Discussed sunscreen/sunblock combo 09/19/2016 Appointment: María Elena Appiah WPtel: [address] [place], [place] [phone] 09/18 confirmed ~sl FOLLOW UP 09/19/2016 Patient Education: Patient Medication Summary Completed 09/19/2016 Patient Education: Patient Medication Summary Completed 09/18/2016 Care Plan: MAMMOGRAM BOTH BREASTS LOINC : 80572-4 Pending 09/18/2016 Visit Plan: Discussed that needs [...] sinuses 08/24/2016 Appointment: María Elena Appiah WPtel: [address] [place] [address] ACUTE ILLNESS 08/24/2016 Patient Education: Patient Medication Summary Completed 08/24/2016 Patient Education: Patient Medication Summary Completed 08/23/2016 Care Plan: MAMMOGRAM SCREENING LOINC : 2 6347-5 Pending 08/23/2016 Visit Plan: Finish doxycycline Add Breo 100/25 1 p BID for 2 weeks If not improving within next 2 days will get CXR 08/16/2016 Appointment: María Elena Appiah WPtel: [address] [place] [address] ACUTE ILLNESS 08/16/2016 Patient Education: Patient Medication Summary Completed 08/16/2016 Visit Plan: Supportive care. Rest, Fluid s, Tylenol/Motrin prn fever or bodyaches. Notify if worsening symptoms. Doxycyline and Prednisone 08/10/2016 Appointment: María Elena Appiah WPtel: [address] [place] [address] 08/09 lm`sl....confirmed-sp FOLLOW UP 09/2015 Patient Education: Patient Medication Summary Completed 08/10/2016 Visit Plan: Saline nasal flushes prn. Ty lenol/Motrin prn headache. Notify if persists/symptoms worsening. Dexamethasone 8mg IM today May use coricedan and mucinex 08/02/2016 Appointment: María Elena Appiah WPtel: [address] [place] [address] ACUTE ILLNESS 08/02/2016 Patient Education: Patient Medication Summary Completed 08/02/2016 Visit Plan: Cryotherapy as above and lef t forearm lesion removal as above with 5-0 punch biopsy and sent to path Return in 10 days for suture removal 08/01/2016 Appointment: María Elena Appiah WPtel: [address] [place], [place] [phone] 07/31 confirmed`~sl OFFICE SURGERY 08/01/2016 Patient Education: Patient Medication Summary Completed 08/01/2016 Visit Plan: Stop clindamycin Check CBC, CMP, ESR now/STAT 07/27/2016 Appointment: María Elena Appiah WPtel: [address] [place], [place] [phone] ACUTE ILLNESS 07/27/2016 Patient Education: Patient Medication Summary Completed 07/27/2016 Visit Plan: Update lab and check ABIs to start with Will likely need cardiology evaluation to rule out PVD Clindamycin for 10 days Daily yogurt or probiotic Will return for removal of left arm lesions 07/20/2016 Appointment: María Elena Appiah WPtel: [address] [place], [place] [phone] ACUTE ILLNESS 07/20/2016 Patient Education: Patient Medication Summary Completed 07/20/2016 Patient Education: Patient Medication Summary Completed 07/20/2016 Care Plan: MAMMOGRAM BOTH BREASTS LOINC : 97529-2 Pending 07/20/2016 Care Plan: US EXAM CHEST LOINC : 04805-4 Pending 07/20/2016 Visit Plan: Wound culture collected from left great toe Appearance is somewhat staph like Rx as above Wound cleanser and skin care reviewed May need to add oral antibiotic if sores do not heal or continue to reoccur 07/06/2016 Appointment: Loan Sánchez [address] [place], [place] [phone] ACUTE ILLNESS 07/06/2016 Patient Education: Patient Medication Summary Completed 07/06/2016 Appointment: María Elena Appiah WPtel: [address] [place], [place] [phone] [place] INJECTION 05/25/2016 Patient Education: Patient Medication Summary Completed 05/25/2016 Visit Plan: Saline nasal flushes prn. Ty lenol/Motrin prn headache. Notify if persists/symptoms worsening. Dexamethasone and Rocephin given 04/26/2016 Appointment: María Elena Appiah WPtel: [address] [place] [address] ACUTE ILLNESS 04/26/2016 Patient Education: Patient Medication Summary Completed 04/26/2016 Visit Plan: Check CBC, CMP, TSH, FreeT4, HbA1C, estradiol, lipids in AM 03/02/2016 Appointment: María Elena Appiah WPtel: [address] [place] [address] 03/01 lm~sl ACUTE ILLNESS 03/02/2016 Patient Education: Patient Medication Summary Completed 03/02/2016 Visit Plan: Exam is nearly normal Needs to be taking daily antihistamine Would prefer to use oral steroids instead of shot but patient insist that oral steroids cause horrible headaches for her Will given kenalog IM instead 02/09/2016 Appointment: Loan Sánchez [address] [place] [address] ACUTE ILLNESS 02/09/2016 Patient Education: Patient Medication Summary Completed 02/09/2016 Visit Plan: Culture urine Macrobid DC xa nax Trial of Ativan 1mg q HS 01/24/2016 Appointment: María Elena Appiah WPtel: [address] [place] [address] ACUTE ILLNESS 01/24/2016 Patient Education: Patient Medication Summary Completed 01/24/2016 Visit Plan: No steroid or rocephin injec tion warranted Can have oral prednisone Continue current home regimen Needs to follow up with Dr Sanchez if problems persist 12/23/2015 Appointment: Loan Sánchez [address] [place] [address] ACUTE ILLNESS 12/23/2015 Patient Education: Patient Medication Summary Completed 12/23/2015 Visit Plan: Saline nasal flushes prn. Ty lenol/Motrin prn headache. Notify if persists/symptoms worsening. Kenalog 40mg IM today 12/08/2015 Appointment: María Elena Appiah WPtel: [address] [place] [address] 12/06 confirmed~sl ACUTE ILLNESS 12/08/2015 Patient Education: Patient Medication Summary Completed 12/08/2015 Appointment: María Elena Appiah WPtel: [address] [place] [address] ACUTE ILLNESS 11/18/2015 Patient Education: Patient Medication Summary Completed 10/11/2015 Appointment: María Elena Appiah WPtel: [address] [place], [place] [phone] [place] INJECTION 10/07/2015 Patient Education: Patient Medication Summary Completed 10/07/2015 Visit Plan: Check renal arterial doppler s and ECHO Change amlodopine to lotrel 5/20mg q HS Will need stress test as well Check CMP, uric acid, ESR 10/06/2015 Appointment: María Elena Appiah WPtel: [address] [place] [address] ACUTE ILLNESS 10/06/2015 Patient Education: Patient Medication Summary Completed 10/06/2015 Patient Education: [facility] - Saving [employer] - Amlodipine Besylate - 18-64 - Dynamic Portal ID Completed 10/06/2015 Appointment: María Elena Appiah WPtel: [address] [place] [address] FOLLOW UP 09/22/2015 Visit Plan: Cephalexin 500 mg PO bid Mery ly topical Mupirocin to lesions on left lateral neck and face Follow-up in one week. Sooner if symptoms worsen 09/14/2015 Appointment: June Flores WPtel: [address] [place], [place] [phone] ACUTE ILLNESS 09/14/2015 Patient Education: Patient Medication Summary Completed 09/14/2015 Visit Plan: Change bystolic to bedtime d osing and amlodopine to morning dosing Cryotherapy as above to AKs 09/07/2015 Appointment: María Elena Appiah WPtel: [address] [place], [place] [phone] 09/06 appointment made and confirmed ~sl FOLLOW UP 09/07/2015 Patient Education: Patient Medication Summary Completed 09/07/2015 Visit Plan: Increase bystolic back to 20 mg daily but will split and take 10mg in AM and 10mg in PM Stress Reducers 08/18/2015 Appointment: María Elena Appiahtel: [address] [place], [place] [phone] 08/17/15 appt confirmed cn ACUTE ILLNESS 08/18 Patient Education: Patient Medication Summary Completed 08/18/2015 Appointment: María Elena Appiah WPtel: [address] [place] [address] BP CHECK 07/07/2015 Patient Education: Patient Medication Summary Completed 07/07/2015 Appointment: María Elena Appiah WPtel: [address] [place] [address] BP CHECK 06/24/2015 Patient Education: Patient Medication Summary Completed 06/24/2015 Appointment: María Elena Appiah WPtel: [address] [place] [address] BP CHECK 06/21/2015 Patient Education: Patient Medication Summary Completed 06/21/2015 Visit Plan: Lab discussed Continue suhail nt meds and lifestyle modification Recheck lab in 6mos 06/16/2015 Appointment: María Elena Appiah WPtel: [address] [place] [address] 06/15 confirmed FOLLOW UP 06/16/2015 Patient Education: Patient Medication Summary Completed 06/16/2015 Patient Education: Patient Medication Summary Completed 06/15/2015 Visit Plan: Increase cymbalta to 60mg q HS Keep clonidine at current dose Recheck 2weeks Change xanax to klonopin 06/02/2015 Appointment: María Elena Appiahtel: [address] [place] [address] 06/02 lm FOLLOW UP 06/02/2015 Patient Education: Patient Medication Summary Completed 06/02/2015 Appointment: María Elena Appiah WPtel: [address] [place] [address] ACUTE ILLNESS 05/24/2015 Visit Plan: Increase clonidine to 0.2mg q HS Add cymbalta 30mg q HS Recheck 2weeks Stress Reducers Check fasting lab Discussed sleep study 05/20/2015 Appointment: María Elena Appiah WPtel: [address] [place] [address] ACUTE ILLNESS 05/20/2015 Patient Education: Patient Medication Summary Completed 05/20/2015 Patient Education: [facility] - Saving [employer] - Cymbalta - 18-64 - Dynamic Portal ID Completed 05/20/2015 Appointment: María Elena Appiah WPtel: [address] [place] [address] BP CHECK 05/19/2015 Patient Education: Patient Medication Summary Completed 05/19/2015 Visit Plan: Topical Bactroban alternatin g with topical betamethasone Recheck 2weeks 05/10/2015 Appointment: María Elena Appiah WPtel: [address] [place] [address] 05/07 vm cn...05/07 appt confirmed OFFICE SURGER Y 05/10/2015 Patient Education: Patient Medication Summary Completed 05/10/2015 Referral: Patrick Chandler WPtel: [address] [facility] [address] Referral Initiated 05/04/2015 Visit Plan: Saline nasal flushes prn. Ty lenol/Motrin prn headache. Notify if persists/symptoms worsening. Depomedrol 40mg IM today 03/16/2015 Appointment: María Elena Appiah WPtel: [address] [place] [address] ACUTE ILLNESS 03/16/2015 Patient Education: Patient Medication Summary Completed 03/16/2015 Appointment: María Elena Appiah WPtel: [address] [place] [address] ER Follow UP 03/09/2015 Visit Plan: Cryotherapy to lesions as ab ove 10/27/2014 Appointment: María Elena Appiah WPtel: [address] [place] [address] OFFICE SURGERY 10/27/2014 Patient Education: Patient Medication Summary Completed 10/27/2014 Appointment: June Flores WPtel: [address] [place] [address] ACUTE ILLNESS 09/11/2014 Patient Education: Patient Medication Summary Completed 09/11/2014 Visit Plan: Lab discussed Lipitor 10mg d aily Coenzyme Q-10 400mg daily Vitamin D3 5000u daily Recheck lipids with LFTs in 3mos then fwup 08/31/2014 Appointment: María Elena Appiah WPtel: [address] [place] [address] 08/28 voicemail FOLLOW UP 08/31/2014 Patient Education: Patient Medication Summary Completed 08/31/2014 Appointment: María Elena Appiah WPtel: [address] [place] [address] US LAB 08/27/2014 Appointment: María Elena Appiah WPtel: [address] [place] [address] US LAB 08/27/2014 Patient Education: Patient Medication Summary Completed 08/27/2014 Appointment: María Elena Appiah WPtel: [address] [place] [address] ACUTE ILLNESS 07/23/2014 Appointment: María Elena Appiah WPtel: [address] [place] [address] ACUTE ILLNESS 07/21/2014 Patient Education: Patient Medication Summary Completed 07/21/2014 Visit Plan: Kenalog 40mg IM today Contin ue narendra and singulair Add Flonase 07/15/2014 Appointment: María Elena Appiah WPtel: [address] [place] [address] ACUTE ILLNESS 07/15/2014 Appointment: María Elena Appiah WPtel: [address] [place], [place] [phone] ACUTE ILLNESS 07/15/2014 Patient Education: Patient Medication Summary Completed 07/15/2014 Visit Plan: Will do metolazone 2.5mg prn with 6 potassium and see if causes as severe cramping Trial of of seroquel XR 50mg q PM with evening meal and let us know how works 05/18/2014 Appointment: María Elena Appiah WPtel: [address] [place], [place] [phone] 05/15 left message FOLLOW UP 05/18/2014 Patient Education: Patient Medication Summary Completed 05/18/2014 Appointment: María Elena Appiah WPtel: [address] [place], [place] [phone] [place] LAB 05/14/2014 Patient Education: Patient Medication Summary Completed 05/14/2014 Appointment: María Elena Appiah WPtel: [address] [place], [place] [phone] [place] INJECTION 04/22/2014 Visit Plan: Tisha and Miranda today a nd finish abx given from urgent care 04/21/2014 Appointment: María Elena Appiah WPtel: [address] [place], [place] [phone] [place] INJECTION 04/21/2014 Patient Education: Patient Medication Summary Completed 04/21/2014 Appointment: June Flores WPtel: [address] [place], [place] [phone] ACUTE ILLNESS 03/04/2014 Patient Education: Patient Medication Summary Completed 03/04/2014 Appointment: María Elena Appiah WPtel: [address] [place], [place] [phone] [place] INJECTION 02/27/2014 Patient Education: Patient Medication Summary Completed 02/27/2014 Visit Plan: Cryotherapy as above to all lesions Patient wants to try no meds for insomnia for a while and see how goes 01/13/2014 Appointment: María Elena Appiahtel: [address] [place] [address] OFFICE SURGERY 01/13/2014 Patient Education: Patient Medication Summary Completed 01/13/2014 Visit Plan: Stop Melatonin Stop Soma Tri al of trazadone 75mg q HS See ENT for possible tubes as has had chronic ETD and serous otitis media with numerous steroids 12/24/2013 Appointment: María Elena Appiah WPtel: [address] [place] [address] ACUTE ILLNESS 12/24/2013 Patient Education: Patient Medication Summary Completed 12/24/2013 Visit Plan: Saline nasal flushes prn. Ty lenol/Motrin prn headache. Notify if persists/symptoms worsening. 11/12/2013 Appointment: María Elena Appiah WPtel: [address] [place] [address] ACUTE ILLNESS 11/12/2013 Patient Education: Patient Medication Summary Completed 11/12/2013 Appointment: María Elena Appiah WPtel: [address] [place] [address] ACUTE ILLNESS 10/21/2013 Patient Education: Patient Medication Summary Completed 10/21/2013 Visit Plan: Sleep hygiene and sleep rout ine Melatonin 10mg q HS Support stockings and observe 09/22/2013 Appointment: María Elena Appiah WPtel: [address] [place] [address] ACUTE ILLNESS 09/22/2013 Patient Education: Patient Medication Summary Completed 09/22/2013 Appointment: June Flores WPtel: [address] [place] [address] ACUTE ILLNESS 08/27/2013 Patient Education: Patient Medication Summary Completed 08/27/2013 Visit Plan: Proceed with CT scan of head /neck Proceed with occipital nerve injections Butrans 20mcg patch weekly until can get into see Dr. Mcdonough for injections 08/04/2013 Appointment: María Elena Appiah WPtel: [address] [place] [address] FOLLOW UP 08/04/2013 Patient Education: Patient Medication Summary Completed 08/04/2013 Visit Plan: OMT done Daily neck stretche s, moist heat Increase Celebrex to 200mg BID Add flexeril 07/23/2013 Appointment: María Elena Appiah WPtel: [address] [place] [address] 07/22 voicemail FOLLOW UP 07/23/2013 Patient Education: Patient Medication Summary Completed 07/23/2013 Appointment: María Elena Appiah WPtel: [address] [place] [address] ACUTE ILLNESS 06/23/2013 Patient Education: Patient Medication Summary Completed 06/23/2013 Appointment: María Elena Appiah WPtel: [address] [place] [address] ACUTE ILLNESS 05/26/2013 Patient Education: Patient Medication Summary Completed 05/26/2013 Visit Plan: Decrease clonidine to 0.1mg TID If BP remains stable consider decreasing amlodopine Prednisone for 5 days BP check in 1mo 04/16/2013 Appointment: María Elena Appiah WPtel: [address] [place] [address] 04/14 pt called and confirmed appt FOLLOW UP 04/16/2013 Patient Education: Patient Medication Summary Completed 04/16/2013 Appointment: María Elena Appiah WPtel: [address] [place] [address] ACUTE ILLNESS 03/05/2013 Patient Education: Patient Medication Summary Completed 03/05/2013 Visit Plan: Pt has MARIA ELENA on with Dr. Sharonda Matthews patch Refill Hydrocodone early tomorrow 12/23/2012 Appointment: María Elena Appiah WPtel: [address] [place] [address] FOLLOW UP 12/23/2012 Patient Education: Patient Medication Summary Completed 12/23/2012 Appointment: Lashawn Eckert WPtel: [address] [place] [address] ACUTE ILLNESS 12/16/2012 Patient Education: Patient Medication Summary Completed 12/16/2012 Visit Plan: Proceed with updated MRI of LS spine Continue gabapentin and add soma and diclofenac Will likely need to go for another epidural 12/09/2012 Appointment: María Elena Appiah WPtel: [address] [place] [address] ACUTE ILLNESS 12/09/2012 Patient Education: Patient Medication Summary Completed 12/09/2012 Visit Plan: Injection as above Finish me drol dose pack Chiropracter this afternoon 12/04/2012 Appointment: María Elena Appiah WPtel: [address] [place] [address] ACUTE ILLNESS 12/04/2012 Patient Education: Patient Medication Summary Completed 12/04/2012 Appointment: Mary Tillman WPtel: [address] [place] [address] FOLLOW UP 11/22/2012 Patient Education: Patient Medication Summary Completed 11/22/2012 Appointment: María Elena Appiah WPtel: [address] [place] [address] ACUTE ILLNESS 11/21/2012 Patient Education: Patient Medication Summary Completed 11/21/2012 Appointment: María Elena Appiah WPtel: [address] [place] [address] BP CHECK 11/07/2012 Patient Education: Patient Medication Summary Completed 11/07/2012 Visit Plan: reports extra clonidine and extra amlodipine and extra alprazalam. extra Ketolorac and promethazine last night. Bystolic 10 mg QAM and will continue all other blood pressure meds. Pt. encouraged to rest and hydrate. Discussed stroke and RI symptoms. Pt. instructed to seek ER eval if symptoms worsen or headache persists. Pt. agrees to ER eval/EMS transport if symptoms worsen. BP re-check. 10/29/2012 Appointment: Lashawn Eckert WPtel: [address] [place], [place] [phone] [place] ACUTE ILLNESS 10/29/2012 Patient Education: Patient Medication Summary Completed 10/29/2012 Appointment: María Elena Appiah WPtel: [address] [place] [address] ACUTE ILLNESS 10/14/2012 Patient Education: Patient Medication Summary Completed 10/14/2012 Appointment: María Elena Appiah WPtel: [address] [place] [address] UA 09/27/2012 Patient Education: Patient Medication Summary Completed 09/27/2012 Appointment: María Elena Appiah WPtel: [address] [place] [address] ACUTE ILLNESS 09/25/2012 Patient Education: Patient Medication Summary Completed 09/25/2012 Appointment: María Elena Appiah WPtel: [address] [place] [address] BP CHECK 09/24/2012 Appointment: María Elena Appiah WPtel: [address] [place] [address] ACUTE ILLNESS 08/29/2012 Patient Education: Patient Medication Summary Completed 08/29/2012 Visit Plan: Cryotherapy as above See Karlos m for right ear lesion--probable MOHs procedure Increase amlodopine to 10mg daily 08/12/2012 Appointment: María Elena Appiah WPtel: [address] [place] [address] OFFICE SURGERY 08/12/2012 Patient Education: Patient Medication Summary Completed 08/12/2012 Appointment: María Elena Appiah WPtel: [address] [place] [address] 05/03 vm on pt phone...pt called on 04/11 3 pt called wanting in had no one cancel so could not get her in for an appt sooner than 05/06. ACUTE ILLNESS 05/06/2012 Patient Education: Patient Medication Summary Completed 05/06/2012 Visit Plan: Pt wants to hold on any furt her sleep medications 04/03/2012 Appointment: María Elena Appiah WPtel: [address] [place] [address] FOLLOW UP 04/03/2012 Patient Education: Patient Medication Summary Completed 04/03/2012 Appointment: María Elena Appiah WPtel: [address] [place] [address] FOLLOW UP 03/19/2012 Patient Education: Patient Medication Summary Completed 03/19/2012 Appointment: María Elena Appiah WPtel: [address] [place] [address] BP CHECK 02/22/2012 Patient Education: Patient Medication Summary Completed 02/22/2012 Appointment: María Elena Appiah WPtel: [address] [place] [address] BP CHECK 02/21/2012 Patient Education: Patient Medication Summary Completed 02/21/2012 Visit Plan: Doxycycline and bactroban fo r foot Supportive care on ankles and knees Add norvasc for BP 02/20/2012 Appointment: María Elena Appiah WPtel: [address] [place] [address] ER Follow UP 02/20/2012 Patient Education: Patient Medication Summary Completed 02/20/2012 Appointment: María Elena Appiah WPtel: [address] [place] [address] ACUTE ILLNESS 01/30/2012 Patient Education: Patient Medication Summary Completed 01/30/2012 Appointment: María Elena Appiah WPtel: [address] [place] [address] ACUTE ILLNESS 01/24/2012 Patient Education: Patient Medication Summary Completed 01/24/2012 Visit Plan: Daily back stretches, moist heat, Biofreeze prn OMT done 01/10/2012 Appointment: María Elena Appiah WPtel: [address] [place] [address] ACUTE ILLNESS 01/10/2012 Patient Education: Patient Medication Summary Completed 01/10/2012 Appointment: María Elena Appiahtel: [address] [place] [address] FOLLOW UP 12/11/2011 Patient Education: Patient Medication Summary Completed 12/11/2011 Appointment: María Elena Appiahtel: [address] [place] [address] ACUTE ILLNESS 11/09/2011 Patient Education: Patient Medication Summary Completed 11/09/2011 Appointment: María Elena Appiahtel: [address] [place] [address] ACUTE ILLNESS 09/13/2011 Patient Education: Patient Medication Summary Completed 09/13/2011 Visit Plan: Check CBC, TSH, Free T4, CMP , ESR, Vit D, B12 now Start Prednisone today 08/31/2011 Appointment: María Elena Appiahtel: [address] [place] [address] ACUTE ILLNESS 08/31/2011 Patient Education: Patient Medication Summary Completed 08/31/2011 Appointment: María Elena Appiahtel: [address] [place] [address] US INJECTION 07/20/2011 Patient Education: Patient Medication Summary Completed 07/20/2011 Visit Plan: Continue current meds Monite r BP Cont stretches from PT 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 07/06/2011 Appointment: María Elena Appiahtel: [address] [place] [address] FOLLOW UP 07/06/2011 Patient Education: Patient Medication Summary Completed 07/06/2011 Appointment: María Elena Appiahtel: [address] [place] [address] US BP CHECK 06/06/2011 Patient Education: Patient Medication Summary Completed 06/06/2011 Visit Plan: Add Bystolic at 2.5mg QAM Ad d Robaxin 750mg 2 po q HS BP check in 2wks 05/22/2011 Appointment: María Elena Appiah WPtel: [address] [place] [address] FOLLOW UP 05/22/2011 Patient Education: Patient Medication Summary Completed 05/22/2011 Appointment: María Elena Appiah WPtel: [address] [place] [address] ER Follow UP 05/09/2011 Patient Education: Patient Medication Summary Completed 05/09/2011 Appointment: María Elena Appiah WPtel: [address] [place] [address] FOLLOW UP 02/22/2011 Visit Plan: Rx written for Hydrocodone 1 0/325mg #240 See Ortho 02/14/2011 Appointment: María Elena Appiah WPtel: [facility] [address] OMT 02/14/2011 Patient Education: Patient Medication [...] work. 02/03/2011 Appointment: Lashawn Eckert WPtel: [address] [facility] ACUTE ILLNESS 02/03/2011 Patient Education: Patient Medication Summary Completed 02/03/2011 Visit Plan: OMT done Cont daily stretche s 01/31/2011 Appointment: María Elena Appiah WPtel: [address] [place] [address] ACUTE ILLNESS 01/31/2011 Patient Education: Patient Medication Summary Completed 01/31/2011 Visit Plan: Continue pain meds OMT done Proceed with PT No work this summer01/25/2011 Appointment: María Elena Appiah WPtel: [address] [place] [address] ACUTE ILLNESS 01/25/2011 Patient Education: Patient Medication Summary Completed 01/25/2011 Visit Plan: Start PT Long discussion abo ut getting pain meds from only us and can only have max of 4grams of tylenol per day Change to Hydrocodone 10/325mg 1- 2 po TID prn pain--#180 called to Radha 01/18/2011 Appointment: María Elena Appiah WPtel: [address] [place] [address] FOLLOW UP 01/18/2011 Patient Education: Patient Medication Summary Completed 01/18/2011 Visit Plan: Daily back stretches, moist heat, Biofreeze prn 11/29/2010 Appointment: María Elena Appiah WPtel: [address] [place] [address] ER Follow UP 11/29/2010 Patient Education: Patient Medication Summary Completed 11/29/2010 Visit Plan: Saline nasal flushes prn. Ty lenol/Motrin prn headache. Notify if persists/symptoms worsening. Finish augmentin Add Medrol Dose Pack 10/10/2010 Appointment: María Elena Appiah WPtel: [address] [place] [address] ACUTE ILLNESS 10/10/2010 Patient Education: Patient Medication Summary Completed 10/10/2010 Visit Plan: Cryotherapy x3 to multiple l esions on both forearms 07/19/2010 Appointment: María Elena Appiah WPtel: [address] [place] [address] OFFICE SURGERY 07/19/2010 Patient Education: Patient Medication Summary Completed 07/19/2010 Appointment: María Elena Appiah WPtel: [address] [place] [address] US BP CHECK 07/06/2010 Patient Education: Patient Medication Summary Completed 07/06/2010 Appointment: María Elena Appiah WPtel: [address] [place], [place] [id number] [place] BP CHECK 06/30/2010 Patient Education: Patient Medication Summary Completed 06/30/2010 Appointment: María Elena Appiah WPtel: [address] [place] [address] BP CHECK 06/20/2010 Patient Education: Patient Medication Summary Completed 06/20/2010 Visit Plan: Change Diovan to Exforge 160 /5mg QD OMT done to thoracics BP check in 2wks 06/07/2010 Appointment: María Elena Appiah WPtel: [address] [place] [address] FOLLOW UP 06/07/2010 Patient Education: Patient Medication Summary Completed 06/07/2010 Appointment: María Elena Appiah WPtel: [address] [place] [address] BP CHECK 06/03/2010 Patient Education: Patient Medication Summary Completed 06/03/2010 Appointment: María Elena Appiah WPtel: [address] [place] [address] BP CHECK 06/01/2010 Patient Education: Patient Medication Summary Completed 06/01/2010 Visit Plan: Irritated skin tags to left neck x2 excised at base with scissors and base cauterized 05/30/2010 Appointment: María Elena Appiah WPtel: [address] [place] [address] OFFICE SURGERY 05/30/2010 Patient Education: Patient Medication Summary Completed 05/30/2010 Visit Plan: Saline nasal flushes prn. Ty lenol/Motrin prn headache. Notify if persists/symptoms worsening. Restart Nasonex Has allergy testing set for May 25 04/27/2010 Appointment: María Elena Appiah WPtel: [address] [place] [address] ACUTE ILLNESS 04/27/2010 Patient Education: Patient Medication Summary Completed 04/27/2010 Visit Plan: Saline nasal flushes prn. Ty lenol/Motrin prn headache. Notify if persists/symptoms worsening. Omnaris BID plus injections 04/05/2010 Appointment: María Elena Appiah WPtel: [address] [place] [address] ACUTE ILLNESS 04/05/2010 Patient Education: Patient Medication Summary Completed 04/05/2010 Visit Plan: Saline nasal flushes prn. Ty lenol/Motrin prn headache. Notify if persists/symptoms worsening. 03/09/2010 Appointment: María Elena Appiah WPtel: [address] [place] [address] ACUTE ILLNESS 03/09/2010 Patient Education: Patient Medication Summary Completed 03/09/2010 Visit Plan: Cont Clonidine as is Cont Pr emarin Fwup with surgery as scheduled 03/03/2010 Appointment: María Elena Appiahtel: [address] [place] [address] FOLLOW UP 03/03/2010 Patient Education: Patient Medication Summary Completed 03/03/2010 Visit Plan: Check Pelvic US now Chelsey Sal C vs Hysterectomy 01/17/2010 Appointment: María Elena Appiahtel: [address] [place] [address] ACUTE ILLNESS 01/17/2010 Patient Education: Patient Medication Summary Completed 01/17/2010 Visit Plan: Check fasting lab and schedu le Mammogram 2gm Na Diet Trial of Ambien 10mg qhs Fwup pending lab results 12/27/2009 Appointment: María Elena Appiah WPtel: [address] [place] [address] ESTABLISHED PATIENT 12/27/2009 Patient Education: Patient Medication Summary Completed 12/27/2009 Referral: Canelo Overton WPtel: [phone] [id number] [place] Referral Initiated Referral: Philipp Flores WPtel: [address] [id number] [place] Referral Appointment Requested Instructions Comment . [...] to rest and hydrate. Discussed stroke and RI symptoms. Pt. instructed to seek ER eval [...]
--- OUTSIDE RECORDS SUMMARY | 2020-03-13 05:30 | XMS REPORT | CCD ---
Author Author Gale Appiah D.O. 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 Name Role Phone María Elena Appiah D.O., PP Unavailable CCM Unavailable Summary Purpose Interface Exchange Insurance Providers Payer name Policy type / Coverage type Covered green party ID Effective Begin Date Effective End Date [facility] Commercial Insurance [id number] Unknown Family History Family History data not found Social History Social History Element Codes Description Effective Dates Tobacco history SNOMED CT: 622612487 Never smoker 05/22/2011 Allergies, Adverse Reactions, Alerts [...] Fill Instructions Januvia 100 mg tablet RxNorm: 613971 1 Tablet(s) Oral QD 11/20/2019 0 11/20/2019 Inactive glimepiride 2 mg tablet RxNorm: 751217 1 Tablet(s) Oral two sawyer es a day 11/20/2019 12/20/2019 Active cyclobenzaprine 10 mg tablet RxNorm: 118510 TAKE ONE TA BLET BY MOUTH THREE TIMES A DAY NEEDED FOR MUSCLE SPASMS 11/17/2019 No Stop Date Active doxepin 25 mg capsule RxNorm: 4962970 TAKE ONE CAPSULE B Y MOUTH EVERY NIGHT AT BEDTIME NEEDED FOR SLEEP 11/16/2019 No Stop Date Active Klor-Con 8 mEq tablet,extended release RxNorm: 210138 T FARRUKH ONE TABLET BY MOUTH TWICE A DAY 11/16/2019 No Stop Date Active hydrocodone 10 mg-acetaminophen 325 mg tablet RxNorm: 332481 1-2 Tablet(s) Oral three times a day as needed for pain 11/10/2019 No Stop Date Active cyclobenzaprine 10 mg tablet RxNorm: 699930 TAKE ONE TA BLET BY MOUTH THREE TIMES A DAY NEEDED FOR MUSCLE SPASMS 10/23/2019 11/16/2019 Inactive duloxetine 60 mg capsule,delayed release RxNorm: 874781 1 Capsu le(s) Oral QD 10/17/2019 04/13/2020 Active celecoxib 200 mg capsule RxNorm: 584253 1 Capsule(s) Or al two times a day as needed for pain 10/17/2019 01/14/2020 Active lisinopril 20 mg tablet RxNorm: 527807 1 Tablet(s) Oral QD 10/17/1904/13/2020 Active gabapentin 300 mg capsule RxNorm: 474567 1 Capsule(s) O ral every night at bedtime 10/17/2019 01/15/2020 Active Singulair 10 mg tablet RxNorm: 367370 1 Tablet(s) Oral QD 10/17/2019 04/14/2020 Active metoprolol tartrate 100 mg tablet RxNorm: 026924 1 Tabl et(s) Oral two times a day 10/17/2019 04/13/2020 Active clonidine HCl 0.1 mg tablet RxNorm: 247691 1 Tablet(s) Oral fou r times a day 10/17/2019 04/13/2020 Active Januvia 100 mg tablet RxNorm: 714295 1 Tablet(s) Oral QD 10/17/2019 No Stop Date Active Lipitor 10 mg tablet RxNorm: 769362 1 Tablet(s) Oral QD 10/17/2019 Active Steglatro 15 mg tablet RxNorm: 5578699 1 Tablet(s) Oral QD 10/17/19 No Stop Date Active Klor-Con 8 mEq tablet,extended release RxNorm: 500496 1 Tablet(s) Oral two times a day 10/17/2019 11/15/2019 Inactive Glyxambi 25 mg-5 mg tablet RxNorm: 6178632 1 Tablet(s) Oral QD 01/202010/16/2019 Inactive Patient will bring in copay discount card as well Glyxambi 25 mg-5 mg tablet RxNorm: 0600653 1 Tablet(s) Oral QD 01/202010/14/2019 Inactive Patient will bring in copay discount card as well Keflex 500 mg capsule RxNorm: 622101 1 Capsule(s) Oral two time s a day 10/07/2019 10/14/2019 Inactive Premarin 1.25 mg tablet RxNorm: 835477 1 Tablet(s) Oral QD 09/30/1906/25/2020 Active hydrocodone 10 mg-acetaminophen 325 mg tablet RxNorm: 885136 1-2 Tablet(s) Oral three times a day as needed for pain 09/30/2019 09/30/2019 Inactive baclofen 10 mg tablet RxNorm: 218308 TAKE ONE TABLET BY MOUTH THREE TIMES A DAY NEEDED 09/19/2019 No Stop Date Active gabapentin 300 mg capsule RxNorm: 563850 TAKE ONE CAPSU LE BY MOUTH EVERY NIGHT AT BEDTIME 09/19/2019 10/16/2019 Inactive Klor-Con 8 mEq tablet,extended release RxNorm: 036558 T FARRUKH ONE TABLET BY MOUTH TWICE A DAY 1 Tablet(s) Oral two times a day 09/19/2019 10/16/2019 [place] ct[place] hydrocodone 10 mg-acetaminophen 325 mg tablet RxNorm: 022034 1-2 Tablet(s) Oral three times a day as needed for pain 09/19/2019 09/29/2019 Inactive triamterene 75 mg-hydrochlorothiazide 50 mg tablet RxNorm: 3 58840 TAKE ONE TABLET BY MOUTH DAILY 09/11/2019 No Stop Date Active allopurinol 300 mg tablet RxNorm: 275968 TAKE ONE TABLET BY LOPEZ TH DAILY 09/11/2019 No Stop Date Active duloxetine 60 mg capsule,delayed release RxNorm: 520848 TAKE ONE CAPSULE BY MOUTH DAILY 09/11/2019 10/16/2019 Inactive Lipitor 10 mg tablet RxNorm: 449974 TAKE ONE TABLET BY MOUTH AT BEDTIME 09/11/2019 10/16/2019 Inactive lisinopril 20 mg tablet RxNorm: 327256 TAKE ONE TABLET BY MOUTH DAILY .... THIS REPLACE 10MG TABLETS 09/11/2019 10/16/2019 Inactive celecoxib 200 mg capsule RxNorm: 447130 TAKE ONE CAPSUL E BY MOUTH TWICE A DAY NEEDED FOR PAIN 09/11/2019 10/16/2019 Inactive clonidine HCl 0.1 mg tablet RxNorm: 986963 TAKE ONE TAB LET BY MOUTH FOUR TIMES A DAY 09/11/2019 10/16/2019 Inactive doxepin 25 mg capsule RxNorm: 1476069 1 Capsule(s) Oral every night at bedtime as needed for sleep 08/21/2019 11/15/2019 Inactive hydrocodone 10 mg-acetaminophen 325 mg tablet RxNorm: 820662 1-2 Tablet(s) PO TID 08/12/2019 09/29/2019 Inactive as needed for pa in - Previous quantity #240, will start dosing for #180 in April 2011 per Doctor Td. Medrol (Dustin) 4 mg tablets in a dose pack RxNorm: 873032 Tablet(s) Oral As Directed 07/21/2019 09/29/2019 Inactive Premarin 1.25 mg tablet RxNorm: 417910 1 Tablet(s) Oral QD 07/02/2009/29/2019 Inactive hydrocodone 10 mg-acetaminophen 325 mg tablet RxNorm: 622763 1-2 Tablet(s) PO TID 07/01/2019 08/11/2019 Inactive as needed for pa in - Previous quantity #240, will start dosing for #180 in April 2011 per Doctor Td. gabapentin 300 mg capsule RxNorm: 406921 1 Capsule(s) PO QHS 201809/18/2019 Inactive celecoxib 200 mg capsule RxNorm: 906132 1 Capsule(s) Or al two times a day as needed for pain 06/27/2019 06/27/2019 Inactive furosemide 40 mg tablet RxNorm: 297247 TAKE ONE TABLET BY MOUTH EVERY MORNING NEEDED FOR EDEMA . TAKE WITH POTASSIUM 06/24/2019 No Stop Date Active doxepin 25 mg capsule RxNorm: 7143530 TAKE ONE CAPSULE B Y MOUTH EVERY NIGHT AT BEDTIME NEEDED FOR SLEEP 06/24/2019 08/20/2019 Inactive Singulair 10 mg tablet RxNorm: 068970 TAKE ONE TABLET BY MOUTH JOSÉ Y 06/24/2019 10/16/2019 Inactive lisinopril 20 mg tablet RxNorm: 641633 TAKE ONE TABLET BY MOUTH DAILY .... THIS REPLACE 10MG TABLETS 06/24/2019 09/10/2019 Inactive nystatin-triamcinolone 100,000 unit/g-0.1 % topical cream Rx Norm: 1627122 1 Application Topical two times a day 06/12/2019 06/19/2019 Inactive apply BID for 1 week nystatin-triamcinolone 100,000 unit/g-0.1 % topical cream Rx Norm: 4273699 1 Application Topical two times a day 06/12/2019 06/11/2019 Inactive apply BID for 1 week hydrocodone 10 mg-acetaminophen 325 mg tablet RxNorm: 841544 1-2 Tablet(s) PO QID as needed for pain MUST LAST 30 DAYS 05/28/2019 06/26/2019 Inactiv e (Response to an electronic controlled substance refill request - RxReferenceNumber: [id number]) baclofen 20 mg tablet RxNorm: 809598 1 Tablet(s) PO TID as needed for muscle spasm 05/19/2019 05/27/2019 Inactive gabapentin 300 mg capsule RxNorm: 387024 1 Capsule(s) PO QHS 201805/27/2019 Inactive lisinopril 20 mg tablet RxNorm: 764246 1 Tablet(s) PO Q D TAKE ONE TABLET BY MOUTH DAILY, REPLACES 10 MG DOSE 05/19/2019 06/23/2019 Inactive doxepin 25 mg capsule RxNorm: 6402844 TAKE ONE CAPSULE B Y MOUTH EVERY NIGHT AT BEDTIME NEEDED FOR SLEEP 05/16/2019 06/14/2019 Inactive lisinopril 20 mg tablet RxNorm: 495862 TAKE ONE TABLET BY MOUTH DAILY, REPLACES 10 MG DOSE 05/16/2019 05/18/2019 Inactive Singulair 10 mg tablet RxNorm: 105297 TAKE ONE TABLET BY MOUTH JOSÉ Y 05/16/2019 06/14/2019 Inactive gabapentin 300 mg capsule RxNorm: 606034 1 Capsule(s) PO QHS 201805/04/2019 Inactive estropipate 1.5 mg tablet RxNorm: 523442 1 Tablet(s) PO QD 05/05/20 19 05/27/2019 Inactive estropipate 1.5 mg tablet RxNorm: 375968 1 Tablet(s) PO QD 05/05/20 19 05/04/2019 Inactive gabapentin 300 mg capsule RxNorm: 916179 1 Capsule(s) PO QHS 201805/18/2019 Inactive hydrocodone 10 mg-acetaminophen 325 mg tablet RxNorm: 153374 1-2 Tablet(s) PO QID as needed for pain MUST LAST 30 DAYS 04/25/2019 05/24/2019 Inactiv e (Response to an electronic controlled substance refill request - RxReferenceNumber: [id number]) cyclobenzaprine 10 mg tablet RxNorm: 461173 TAKE ONE TA BLET BY MOUTH THREE TIMES A DAY NEEDED FOR MUSCLE SPASMS 04/24/2019 05/18/2019 Inactive metoprolol tartrate 100 mg tablet RxNorm: 600101 TAKE O NE TABLET BY MOUTH TWICE A DAY 04/24/2019 10/16/2019 Inactive Lyrica 75 mg capsule RxNorm: 396510 1 Capsule(s) PO QHS 03/25/2019 Inactive duloxetine 60 mg capsule,delayed release RxNorm: 778788 TAKE ONE CAPSULE BY MOUTH DAILY 03/21/2019 05/19/2019 Inactive triamterene 75 mg-hydrochlorothiazide 50 mg tablet RxNorm: 3 73434 TAKE ONE TABLET BY MOUTH DAILY 03/21/2019 05/19/2019 Inactive Klor-Con 8 mEq tablet,extended release RxNorm: 779828 T FARRUKH ONE TABLET BY MOUTH TWICE A DAY 03/21/2019 09/18/2019 Inactive Lipitor 10 mg tablet RxNorm: 616467 TAKE ONE TABLET BY MOUTH AT BEDTIME 03/21/2019 09/10/2019 Inactive clonidine HCl 0.1 mg tablet RxNorm: 117236 TAKE ONE TAB LET BY MOUTH FOUR TIMES A DAY 03/21/2019 05/19/2019 Inactive allopurinol 300 mg tablet RxNorm: 761789 TAKE ONE TABLET BY LOPEZ TH DAILY 03/21/2019 05/19/2019 Inactive hydrocodone 10 mg-acetaminophen 325 mg tablet RxNorm: 091182 1-2 Tablet(s) PO QID as needed for pain MUST LAST 30 DAYS 02/28/2019 03/29/2019 Inactiv e (Response to an electronic controlled substance refill request - RxReferenceNumber: [id number]) furosemide 40 mg tablet RxNorm: 353673 TAKE ONE TABLET BY MOUTH EVERY MORNING NEEDED FOR EDEMA . TAKE WITH POTASSIUM 02/21/2019 03/22/2019 Inactive cyclobenzaprine 10 mg tablet RxNorm: 183646 TAKE ONE TA BLET BY MOUTH THREE TIMES A DAY NEEDED FOR MUSCLE SPASMS 02/21/2019 04/21/2019 Inactive lisinopril 20 mg tablet RxNorm: 432944 TAKE ONE TABLET BY MOUTH DAILY, REPLACES 10 MG DOSE 02/21/2019 05/15/2019 Inactive doxepin 25 mg capsule RxNorm: 6680549 TAKE ONE CAPSULE B Y MOUTH EVERY NIGHT AT BEDTIME NEEDED FOR SLEEP 02/21/2019 05/15/2019 Inactive nystatin 100,000 unit/gram topical cream RxNorm: 246181 APPLY TO AFFECTED AREA(S) TWO TIMES A DAY 02/21/2019 03/22/2019 Inactive estradiol 1 mg tablet RxNorm: 812144 2 Tablet(s) PO QD replaces premarin 01/22/2019 05/04/2019 Inactive lisinopril 20 mg tablet RxNorm: 425737 TAKE ONE TABLET BY MOUTH DAILY, REPLACES 10 MG DOSE 01/20/2019 02/18/2019 Inactive cyclobenzaprine 10 mg tablet RxNorm: 824534 TAKE ONE TA BLET BY MOUTH THREE TIMES A DAY NEEDED FOR MUSCLE SPASMS 01/20/2019 02/18/2019 Inactive metoprolol tartrate 100 mg tablet RxNorm: 095085 TAKE O NE TABLET BY MOUTH TWICE A DAY 01/20/2019 02/18/2019 Inactive cyclobenzaprine 10 mg tablet RxNorm: 729880 TAKE ONE TA BLET BY MOUTH THREE TIMES A DAY NEEDED FOR MUSCLE SPASMS 12/19/2018 01/17/2019 Inactive lisinopril 20 mg tablet RxNorm: 695308 TAKE ONE TABLET BY MOUTH DAILY, REPLACES 10 MG DOSE 12/19/2018 01/17/2019 Inactive duloxetine 60 mg capsule,delayed release RxNorm: 688793 TAKE ONE CAPSULE BY MOUTH DAILY 12/19/2018 01/17/2019 Inactive Lipitor 10 mg tablet RxNorm: 935860 TAKE ONE TABLET BY MOUTH AT BEDTIME 12/19/2018 01/17/2019 Inactive cyclobenzaprine 10 mg tablet RxNorm: 874515 1 Tablet(s) PO TID as needed for muscle spasm 11/19/2018 12/18/2018 Inactive Singulair 10 mg tablet RxNorm: 956583 1 Tablet(s) PO QD 11/19/2018 Inactive lisinopril 20 mg tablet RxNorm: 735549 TAKE ONE TABLET BY MOUTH DAILY, REPLACES 10 MG DOSE 11/15/2018 12/18/2018 Inactive hydrocodone 10 mg-acetaminophen 325 mg tablet RxNorm: 593652 1-2 Tablet(s) PO QID as needed for pain MUST LAST 30 DAYS 11/13/2018 12/12/2018 Inactiv e (Response to an electronic controlled substance refill request - RxReferenceNumber: [id number]) nystatin 100,000 unit/gram topical cream RxNorm: 038939 APPLY TO AFFECTED AREA(S) TWO TIMES A DAY 10/23/2018 11/06/2018 Inactive lisinopril 20 mg tablet RxNorm: 300025 1 Tablet(s) PO QD replac es 10mg dose 10/18/2018 11/14/2018 Inactive hydrocodone 10 mg-acetaminophen 325 mg tablet RxNorm: 052518 1-2 Tablet(s) QID as needed for pain MUST LAST 30 DAYS 10/08/2018 11/06/2018 Inactive (Response to an electronic controlled substance refill request - RxReferenceNumber: [id number]) lisinopril 10 mg tablet RxNorm: 433078 1 Tablet(s) PO QD 10/03/2018 0 01/21/2019 Inactive Celebrex 200 mg capsule RxNorm: 898936 TAKE ONE CAPSULE BY MOUT H TWICE A DAY 09/30/2018 05/04/2019 Inactive cyclobenzaprine 10 mg tablet RxNorm: 746543 TAKE ONE TA BLET BY MOUTH THREE TIMES A DAY NEEDED FOR MUSCLE SPASMS 09/30/2018 11/18/2018 Inactive doxepin 25 mg capsule RxNorm: 0813490 TAKE ONE CAPSULE B Y MOUTH EVERY NIGHT AT BEDTIME NEEDED 09/05/2018 10/16/2018 Inactive omeprazole 40 mg capsule,delayed release RxNorm: 020487 TAKE ONE CAPSULE BY MOUTH DAILY 09/05/2018 01/21/2019 Inactive furosemide 40 mg tablet RxNorm: 811218 TAKE ONE TABLET BY MOUTH EVERY MORNING NEEDED FOR EDEMA . TAKE WITH POTASSIUM 09/05/2018 11/03/2018 Inactive phentermine 37.5 mg tablet RxNorm: 277026 1 Tablet(s) PO QAM 201701/21/2019 Inactive doxepin 25 mg capsule RxNorm: 1194969 1 Capsule(s) PO QH S as needed for sleep TAKE ONE CAPSULE BY MOUTH EVERY NIGHT AT BEDTIME NEEDED 08/27/2018 09/04/2018 Inactive Keflex 500 mg capsule RxNorm: 723568 1 Capsule(s) PO TID 08/09/2018 1 10/19/2017 Inactive Diflucan 100 mg tablet RxNorm: 375001 1 Tablet(s) PO QD 08/09/2018 Inactive Premarin 1.25 mg tablet RxNorm: 622190 2 Tablet(s) PO QD 08/09/2018 0 05/04/2019 Inactive Zofran ODT 4 mg disintegrating tablet RxNorm: 663760 1 Tablet(s) PO Q4H as needed for nausea 08/09/2018 01/21/2019 Inactive metoprolol tartrate 100 mg tablet RxNorm: 473252 TAKE O NE TABLET BY MOUTH TWICE A DAY 2018 10/04/2018 Inactive doxepin 25 mg capsule RxNorm: 0543814 TAKE ONE CAPSULE B Y MOUTH EVERY NIGHT AT BEDTIME NEEDED 2018 08/26/2018 Inactive cyclobenzaprine 10 mg tablet RxNorm: 550527 TAKE ONE TA BLET BY MOUTH THREE TIMES A DAY NEEDED FOR MUSCLE SPASMS 2018 09/29/2018 Inactive hydrocodone 10 mg-acetaminophen 325 mg tablet RxNorm: 422702 1-2 Tablet(s) QID as needed for pain MUST LAST 30 DAYS 07/29/2018 08/27/2018 Inactive (Response to an electronic controlled substance refill request - RxReferenceNumber: [id number]) nystatin 100,000 unit/gram topical powder RxNorm: 611988 Applic ation TOP BID 07/22/2018 08/04/2018 Inactive doxepin 25 mg capsule RxNorm: 8065403 1 Capsule(s) PO QHS as needed 07/22/2018 08/05/2018 Inactive triamterene 75 mg-hydrochlorothiazide 50 mg tablet RxNorm: 3 80680 TAKE ONE TABLET BY MOUTH DAILY 07/05/2018 10/02/2018 Inactive duloxetine 60 mg capsule,delayed release RxNorm: 787732 TAKE ONE CAPSULE BY MOUTH DAILY 07/05/2018 09/02/2018 Inactive Klor-Con 8 mEq tablet,extended release RxNorm: 870137 T FARRUKH ONE TABLET BY MOUTH TWICE A DAY 07/05/2018 10/02/2018 Inactive Lipitor 10 mg tablet RxNorm: 943040 TAKE ONE TABLET BY MOUTH AT BEDTIME 07/05/2018 09/02/2018 Inactive allopurinol 300 mg tablet RxNorm: 102442 TAKE ONE TABLET BY LOPEZ TH DAILY 07/05/2018 10/02/2018 Inactive clonidine HCl 0.1 mg tablet RxNorm: 460161 TAKE ONE TAB LET BY MOUTH FOUR TIMES A DAY 07/05/2018 10/02/2018 Inactive hydrocodone 10 mg-acetaminophen 325 mg tablet RxNorm: 577728 1-2 Tablet(s) QID as needed for pain MUST LAST 30 DAYS 06/28/2018 07/27/2018 Inactive (Response to an electronic controlled substance refill request - RxReferenceNumber: [id number]) MediHoney (calcium alginate-honey) 4" X 5" bandage RxNorm: 1 Application TOP QD 06/17/2018 06/26/2018 Inactive honey-hydrocolloid dressing 4" X 5" RxNorm: 1 Application TOP QD 06/17/2018 07/16/2018 Inactive furosemide 40 mg tablet RxNorm: 842088 TAKE ONE TABLET BY MOUTH EVERY MORNING NEEDED FOR EDEMA . TAKE WITH POTASSIUM 06/10/2018 07/09/2018 Inactive This is a refill request. hydrocodone 10 mg-acetaminophen 325 mg tablet RxNorm: 823284 1-2 Tablet(s) QID as needed for pain MUST LAST 30 DAYS 05/30/2018 06/27/2018 Inactive (Response to an electronic controlled substance refill request - RxReferenceNumber: [id number]) acyclovir 800 mg tablet RxNorm: 389480 1 Tablet(s) PO 5x day 201705/22/2018 Inactive Premarin 1.25 mg tablet RxNorm: 484157 1-2 Tablet(s) PO QD 05/15/20 18 07/13/2018 Inactive cyclobenzaprine 10 mg tablet RxNorm: 750378 1 Tablet(s) PO TID as needed for muscle spasm 05/09/2018 05/08/2018 Inactive Medrol (Dustin) 4 mg tablets in a dose pack RxNorm: 598146 Tablet(s) PO As Directed 05/02/2018 06/16/2018 Inactive hydrocodone 10 mg-acetaminophen 325 mg tablet RxNorm: 253300 1-2 Tablet(s) QID as needed for pain MUST LAST 30 DAYS 04/30/2018 05/29/2018 Inactive (Response to an electronic controlled substance refill request - RxReferenceNumber: [id number]) duloxetine 60 mg capsule,delayed release RxNorm: 145348 TAKE ONE CAPSULE BY MOUTH DAILY 04/16/2018 05/15/2018 Inactive Celebrex 200 mg capsule RxNorm: 919509 TAKE ONE CAPSULE BY MOUT H TWICE A DAY 04/16/2018 06/14/2018 Inactive Singulair 10 mg tablet RxNorm: 049089 TAKE ONE TABLET BY MOUTH JOSÉ Y 04/16/2018 11/19/2018 Inactive Lipitor 10 mg tablet RxNorm: 995858 TAKE ONE TABLET BY MOUTH AT BEDTIME 04/16/2018 05/15/2018 Inactive hydrocodone 10 mg-acetaminophen 325 mg tablet RxNorm: 682277 1-2 Tablet(s) QID as needed for pain MUST LAST 30 DAYS 03/29/2018 04/27/2018 Inactive (Response to an electronic controlled substance refill request - RxReferenceNumber: [id number]) cyclobenzaprine 10 mg tablet RxNorm: 596922 1 Tablet(s) PO TID as needed for muscle spasm 03/18/2018 05/09/2018 Inactive omeprazole 40 mg capsule,delayed release RxNorm: 580433 1 Capsu le(s) PO QD 02/26/2018 08/24/2018 Inactive hydrocodone 10 mg-acetaminophen 325 mg tablet RxNorm: 943569 1-2 Tablet(s) QID as needed for pain MUST LAST 30 DAYS 02/26/2018 03/27/2018 Inactive (Response to an electronic controlled substance refill request - RxReferenceNumber: [id number]) metoprolol tartrate 100 mg tablet RxNorm: 766913 1 Tablet(s) PO BID 02/18/2018 08/05/2018 Inactive Lyrica 75 mg capsule RxNorm: 995054 1 Capsule(s) PO QHS 01/30/2018 Inactive phentermine 37.5 mg tablet RxNorm: 964214 1 Tablet(s) PO QAM 201706/16/2018 Inactive hydrocodone 10 mg-acetaminophen 325 mg tablet RxNorm: 202652 1-2 Tablet(s) QID as needed for pain MUST LAST 30 DAYS 01/29/2018 02/25/2018 Inactive (Response to an electronic controlled substance refill request - RxReferenceNumber: [id number]) Klor-Con 8 mEq tablet,extended release RxNorm: 642032 1 Tablet( s) PO BID 01/14/2018 07/04/2018 Inactive allopurinol 300 mg tablet RxNorm: 471902 1 Tablet(s) PO QD 01/15/2007/04/2018 Inactive Lipitor 10 mg tablet RxNorm: 822456 1 Tablet(s) PO QHS 01/14/201812/2017 Inactive triamterene 75 mg-hydrochlorothiazide 50 mg tablet RxNorm: 3 38584 1 Tablet(s) PO QD 01/14/2018 07/04/2018 Inactive hydrocodone 10 mg-acetaminophen 325 mg tablet RxNorm: 460778 1-2 Tablet(s) QID as needed for pain MUST LAST 30 DAYS 12/27/2017 01/25/2018 Inactive (Response to an electronic controlled substance refill request - RxReferenceNumber: [id number]) Onglyza 5 mg tablet RxNorm: 629128 1 Tablet(s) PO QD 12/18/201701/29 Inactive metformin 500 mg tablet RxNorm: 785636 1 Tablet(s) PO BID 12/11/2017 12/10/2017 Inactive metformin 500 mg tablet RxNorm: 046624 1 Tablet(s) PO BID 12/11/2017 12/17/2017 Inactive furosemide 40 mg tablet RxNorm: 171015 1 Tablet(s) PO Q AM prn edema--take with potassium 12/11/2017 06/08/2018 Inactive cyclobenzaprine 10 mg tablet RxNorm: 434917 1 Tablet(s) PO TID as needed for muscle spasm 12/11/2017 03/18/2018 Inactive hydrocodone 10 mg-acetaminophen 325 mg tablet RxNorm: 774994 1-2 Tablet(s) QID as needed for pain MUST LAST 30 DAYS 10/23/2017 11/21/2017 Inactive (Response to an electronic controlled substance refill request - RxReferenceNumber: [id number]) Lipitor 10 mg tablet RxNorm: 717374 1 Tablet(s) PO QHS 10/16/201703/2018 Inactive cyclobenzaprine 10 mg tablet RxNorm: 817251 1 Tablet(s) PO TID as needed for muscle spasm 10/09/2017 12/10/2017 Inactive hydroxyzine HCl 25 mg tablet RxNorm: 804260 1 Tablet(s) PO BID as needed for anxiety 09/20/2017 01/29/2018 Inactive Effexor XR 75 mg capsule,extended release RxNorm: 737599 1 Caps ule(s) PO QD 09/20/2017 01/29/2018 Inactive metoprolol tartrate 100 mg tablet RxNorm: 864474 1 Tablet(s) PO BID 08/20/2017 02/18/2018 Inactive baclofen 20 mg tablet RxNorm: 788607 1 Tablet(s) PO TID as needed for muscle spasm 08/20/2017 01/21/2019 Inactive clonidine HCl 0.1 mg tablet RxNorm: 442539 1 Tablet(s) PO QID 08/2005/16/2018 Inactive Seroquel 25 mg tablet RxNorm: 404861 1 Tablet(s) PO QHS 08/17/2017 Inactive Seroquel 25 mg tablet RxNorm: 814083 1 Tablet(s) PO QHS 08/17/2017 Inactive Diflucan 100 mg tablet RxNorm: 276473 TAKE ONE TABLET BY MOUTH JOSÉ Y 07/25/2017 08/07/2017 Inactive hydrocodone 10 mg-acetaminophen 325 mg tablet RxNorm: 365468 1-2 Tablet(s) QID as needed for pain MUST LAST 30 DAYS 07/19/2017 08/17/2017 Inactive (Response to an electronic controlled substance refill request - RxReferenceNumber: [id number]) clindamycin 300 mg capsule RxNorm: 822757 1 Capsule(s) PO TID 07/1907/28/2017 Inactive clotrimazole-betamethasone 1 %-0.05 % topical cream RxNorm: 674574 Application TOP BID to elbow rash 07/19/2017 06/16/2018 Inactive Singulair 10 mg tablet RxNorm: 049074 Tablet(s) TAKE ONE TABLET BY MOUTH DAILY 07/18/2017 04/13/2018 Inactive triamterene 75 mg-hydrochlorothiazide 50 mg tablet RxNorm: 3 69147 1 Tablet(s) PO QD 07/18/2017 01/14/2018 Inactive Celebrex 200 mg capsule RxNorm: 720725 Capsule(s) TAKE ONE CAPSULE BY MOUTH TWICE A DAY 07/18/2017 10/15/2017 Inactive hydrocodone 10 mg-acetaminophen 325 mg tablet RxNorm: 473577 1-2 Tablet(s) QID as needed for pain MUST LAST 30 DAYS 06/19/2017 07/18/2017 Inactive (Response to an electronic controlled substance refill request - RxReferenceNumber: [id number]) hydrocodone 10 mg-acetaminophen 325 mg tablet RxNorm: 389433 1-2 Tablet(s) QID as needed for pain MUST LAST 30 DAYS 06/19/2017 06/18/2017 Inactive (Response to an electronic controlled substance refill request [id number]) baclofen 20 mg tablet RxNorm: 188608 1 Tablet(s) PO TID as needed for muscle spasm 06/18/2017 08/20/2017 Inactive Medrol (Dustin) 4 mg tablets in a dose pack RxNorm: 261763 Tablet(s) PO As Directed 06/05/2017 07/18/2017 Inactive omeprazole 40 mg capsule,delayed release RxNorm: 901908 1 Capsu le(s) PO QD 04/20/2017 10/16/2017 Inactive Premarin 1.25 mg tablet RxNorm: 051882 1-2 Tablet(s) PO QD 04/11/20 17 05/15/2018 Inactive duloxetine 60 mg capsule,delayed release RxNorm: 793643 1 Capsu le(s) PO QD 04/11/2017 09/19/2017 Inactive furosemide 40 mg tablet RxNorm: 125260 1 Tablet(s) PO Q AM prn edema--take with potassium 04/11/2017 12/11/2017 Inactive Klor-Con 8 mEq tablet,extended release RxNorm: 671696 1 Tablet( s) PO BID 04/11/2017 01/14/2018 Inactive Lipitor 10 mg tablet RxNorm: 022500 1 Tablet(s) PO QHS 04/11/201702/2018 Inactive amlodipine 5 mg-benazepril 20 mg capsule RxNorm: 021625 1 Capsu le(s) PO QD 04/11/2017 01/29/2018 Inactive allopurinol 300 mg tablet RxNorm: 917893 1 Tablet(s) PO QD 04/11/20 17 01/14/2018 Inactive clonidine HCl 0.1 mg tablet RxNorm: 576513 1 Tablet(s) PO QID 04/0508/19/2017 Inactive baclofen 20 mg tablet RxNorm: 214509 1 Tablet(s) PO TID as needed for muscle spasm 04/02/2017 06/18/2017 Inactive Premarin 1.25 mg tablet RxNorm: 734400 1-2 Tablet(s) PO QD 03/20/2026 0404/10/2017 Inactive hydrocodone 10 mg-acetaminophen 325 mg tablet RxNorm: 451407 1-2 Tablet(s) QID as needed for pain MUST LAST 30 DAYS 03/14/2017 01/21/2019 Inactive (Response to an electronic controlled substance refill request - RxReferenceNumber: [id number]) metoprolol tartrate 100 mg tablet RxNorm: 289939 1 Tablet(s) PO BID 02/12/2017 08/20/2017 Inactive hydrocodone 10 mg-acetaminophen 325 mg tablet RxNorm: 105672 1-2 Tablet(s) QID as needed for pain MUST LAST 30 DAYS 02/08/2017 03/09/2017 Inactive (Response to an electronic controlled substance refill request - RxReferenceNumber: [id number]) metoprolol tartrate 100 mg tablet RxNorm: 954059 TAKE O NE TABLET BY MOUTH TWICE A DAY 01/11/2017 02/12/2017 Inactive metoprolol tartrate 100 mg tablet RxNorm: 971908 1 Tablet(s) PO BID 12/18/2016 12/17/2016 Inactive metoprolol tartrate 100 mg tablet RxNorm: 415941 1 Tablet(s) PO BID 12/18/2016 01/10/2017 Inactive furosemide 40 mg tablet RxNorm: 526370 1 Tablet(s) PO Q AM prn edema--take with potassium 12/13/2016 02/10/2017 Inactive amitriptyline 100 mg tablet RxNorm: 709591 1 Tablet(s) PO QHS 11/2812/12/2016 Inactive baclofen 20 mg tablet RxNorm: 798707 1 Tablet(s) PO TID as needed for muscle spasm 11/14/2016 04/01/2017 Inactive triamterene 75 mg-hydrochlorothiazide 50 mg tablet RxNorm: 3 56089 1 Tablet(s) PO QD 11/14/2016 11/13/2016 Inactive metolazone 2.5 mg tablet RxNorm: 694181 TAKE ONE TABLET BY MOUTH DAILY NEEDED FOR EDEMA 11/14/2016 12/12/2016 Inactive triamterene 75 mg-hydrochlorothiazide 50 mg tablet RxNorm: 3 05716 1 Tablet(s) PO QD 11/14/2016 07/18/2017 Inactive amitriptyline 50 mg tablet RxNorm: 928281 TAKE ONE TABL ET BY MOUTH AT BEDTIME NEEDED FOR SLEEP 11/14/2016 11/27/2016 Inactive Cymbalta 60 mg capsule,delayed release RxNorm: 085187 1 Capsule (s) PO QHS 11/14/2016 12/12/2016 Inactive clonidine HCl 0.1 mg tablet RxNorm: 806353 1 Tablet(s) PO QID 11/1304/04/2017 Inactive amitriptyline 50 mg tablet RxNorm: 960052 1 Tablet(s) P O QHS as needed for sleep 11/01/2016 11/27/2016 Inactive duloxetine 60 mg capsule,delayed release RxNorm: 145189 TAKE ONE CAPSULE BY MOUTH DAILY 10/20/2016 01/17/2017 Inactive allopurinol 300 mg tablet RxNorm: 485188 TAKE ONE TABLET BY LOPEZ TH DAILY 10/20/2016 01/16/2017 Inactive Lyrica 75 mg capsule RxNorm: 609688 TAKE ONE CAPSULE BY MOUTH EVERY NIGHT AT BEDTIME 10/20/2016 12/10/2016 Inactive Klor-Con 8 mEq tablet,extended release RxNorm: 351471 T FARRUKH ONE TABLET BY MOUTH TWICE A DAY 10/20/2016 01/17/2017 Inactive Celebrex 200 mg capsule RxNorm: 176268 TAKE ONE CAPSULE BY MOUT H TWICE A DAY 10/20/2016 07/18/2017 Inactive Bystolic 10 mg tablet RxNorm: 199992 TAKE ONE TABLET BY MOUTH EVERY NIGHT AT BEDTIME 10/20/2016 12/17/2016 Inactive amlodipine 5 mg-benazepril 20 mg capsule RxNorm: 326547 TAKE ONE CAPSULE BY MOUTH EVERY NIGHT AT BEDTIME -- TO REPLACE AMLODOPINE 10/20/20162016 Inactive Lipitor 10 mg tablet RxNorm: 562624 TAKE ONE TABLET BY MOUTH EVERY NIGHT AT BEDTIME 10/20/2016 01/17/2017 Inactive alprazolam 0.5 mg tablet RxNorm: 815602 3 Tablet(s) PO QHS as needed for sleep/anxiety 09/20/2016 10/31/2016 Inactive Tamiflu 75 mg capsule RxNorm: 747148 1 Capsule(s) PO QD 09/19/2016 Inactive Lyrica 75 mg capsule RxNorm: 917534 1 Capsule(s) PO QHS 09/19/2016 Inactive prednisone 20 mg tablet RxNorm: 383113 1 Tablet(s) PO QD 08/10/2016 1 10/17/2015 Inactive doxycycline hyclate 100 mg capsule RxNorm: 5349225 1 Capsule(s) PO BID 08/10/2016 08/19/2016 Inactive Medrol (Dustin) 4 mg tablets in a dose pack RxNorm: 938764 Tablet(s) PO As Directed 07/31/2016 08/22/2016 Inactive Singulair 10 mg tablet RxNorm: 561266 TAKE ONE TABLET BY MOUTH JOSÉ Y 07/27/2016 07/18/2017 Inactive hydrocodone 10 mg-acetaminophen 325 mg tablet RxNorm: 700767 1-2 Tablet(s) QID as needed for pain MUST LAST 30 DAYS 07/26/2016 08/24/2016 Inactive (Response to an electronic controlled substance refill request - RxReferenceNumber: [id number]) alprazolam 0.5 mg tablet RxNorm: 070027 3 Tablet(s) PO QHS as needed for anxiety or sleep 07/26/2016 09/20/2016 Inactive clindamycin 300 mg capsule RxNorm: 432425 1 Capsule(s) PO TID 07/2007/29/2016 Inactive Diflucan 100 mg tablet RxNorm: 048905 1 Tablet(s) PO QD 07/20/2016 Inactive Levaquin 500 mg tablet RxNorm: 255257 1 Tablet(s) PO QD 07/17/2016 Inactive Levaquin 500 mg tablet RxNorm: 494852 1 Tablet(s) PO QD 07/10/2016 Inactive Levaquin 500 mg tablet RxNorm: 928766 1 Tablet(s) PO QD 07/10/2016 Inactive mupirocin 2 % topical ointment RxNorm: 740090 TOP Apply topically to affected areas twice daily 07/06/2016 09/18/2016 Inactive Singulair 10 mg tablet RxNorm: 155948 TAKE ONE TABLET BY MOUTH JOSÉ Y 06/21/2016 01/21/2019 Inactive alprazolam 0.5 mg tablet RxNorm: 318663 TAKE THREE TABL ETS BY MOUTH AT BEDTIME NEEDED FOR SLEEP OR STRESS 05/22/2016 06/20/2016 Inactive triamterene 75 mg-hydrochlorothiazide 50 mg tablet RxNorm: 3 78465 1 Tablet(s) PO QD 04/26/2016 10/21/2016 Inactive Premarin 1.25 mg tablet RxNorm: 762434 1-2 Tablet(s) PO QD 04/26/20 16 03/20/2017 Inactive Klor-Con 8 mEq tablet,extended release RxNorm: 203288 1 Tablet( s) PO BID 04/26/2016 10/19/2016 Inactive Celebrex 200 mg capsule RxNorm: 598875 1 Capsule(s) PO BID TAKE ONE CAPSULE BY MOUTH EVERY DAY 04/26/2016 10/19/2016 Inactive Lipitor 10 mg tablet RxNorm: 732926 1 Tablet(s) PO QHS 04/26/201605/2017 Inactive allopurinol 300 mg tablet RxNorm: 226448 1 Tablet(s) PO QD TAKE ONE TABLET BY MOUTH EVERY DAY 04/26/2016 10/19/2016 Inactive amlodipine 5 mg-benazepril 20 mg capsule RxNorm: 487329 1 Capsule(s) PO QHS replaces amlodopine 04/26/2016 10/19/2016 Inactive duloxetine 60 mg capsule,delayed release RxNorm: 632540 1 Capsu le(s) PO QD 04/26/2016 10/19/2016 Inactive Bystolic 10 mg tablet RxNorm: 549200 1 Tablet(s) PO QHS 04/26/2016 Inactive Singulair 10 mg tablet RxNorm: 763208 1 Tablet(s) PO QD TAKE ONE TABLET BY MOUTH DAILY 04/26/2016 06/20/2016 Inactive clonidine HCl 0.1 mg tablet RxNorm: 079608 1 Tablet(s) PO QID 04/2610/22/2016 Inactive hydrocodone 10 mg-acetaminophen 325 mg tablet RxNorm: 493938 1-2 Tablet(s) QID as needed for pain TAKE ONE TO TWO TABLETS BY MOUTH FOUR TIMES A DAY . MUST LAST 30 DAYS 03/31/2016 04/29/2016 Inactive (Response to an electronic controlled substance refill request - RxReferenceNumber: [id number]) Klor-Con 8 mEq tablet,extended release RxNorm: 933985 T FARRUKH ONE TABLET BY MOUTH TWICE A DAY 03/24/2016 09/29/2019 Inactive prednisone 20 mg tablet RxNorm: 239299 1 Tablet(s) PO QD 03/09/2016 0 03/08/2016 Inactive prednisone 20 mg tablet RxNorm: 613060 1 Tablet(s) PO QD 03/09/2016 0 03/13/2016 Inactive alprazolam 0.5 mg tablet RxNorm: 201170 3 Tablet(s) PO QHS as needed for sleep/stress 03/02/2016 01/21/2019 Inactive mupirocin 2 % topical ointment RxNorm: 322413 TOP twice daily to affected areas of face and neck 02/21/2016 04/25/2016 Inactive clonidine HCl 0.1 mg tablet RxNorm: 820398 TAKE ONE TAB LET BY MOUTH FOUR TIMES A DAY 02/15/2016 09/29/2019 Inactive clonidine HCl 0.1 mg tablet RxNorm: 192662 1 Tablet(s) PO QID 02/1404/25/2016 Inactive Premarin 1.25 mg tablet RxNorm: 579000 1-2 Tablet(s) PO QD 02/15/20 16 03/15/2016 Inactive Klor-Con 8 mEq tablet,extended release RxNorm: 508430 T FARRUKH ONE TABLET BY MOUTH TWICE A DAY 02/15/2016 03/15/2016 Inactive potassium chloride ER 20 mEq tablet,extended release(part/cr yst) RxNorm: 307368 2 Tablet(s) PO BID 02/15/2016 03/15/2016 Inactive Macrobid 100 mg capsule RxNorm: 625508 1 Capsule(s) PO BID 01/24/20 16 01/30/2016 Inactive prednisone 20 mg tablet RxNorm: 346951 Take 3tabs PO QD x 2 days, then 2 tabs PO QD x 2 days, then 1 tab PO QD x 2 days, then 1/2 tab PO QDy x 2 days 12/23/2015 04/25/2016 Inactive Klor-Con 8 mEq tablet,extended release RxNorm: 097538 T FARRUKH ONE TABLET BY MOUTH TWICE A DAY 12/20/2015 02/14/2016 Inactive alprazolam 1 mg tablet RxNorm: 948691 1 1/2 Tablet(s) PO QHS 201501/23/2016 Inactive nystatin 100,000 unit/gram topical cream RxNorm: 528527 APPLY TO AFFECTED AREA(S) TWO TIMES A DAY 11/30/2015 12/14/2015 Inactive Singulair 10 mg tablet RxNorm: 046987 TAKE ONE TABLET BY MOUTH JOSÉ Y 11/18/2015 04/25/2016 Inactive allopurinol 300 mg tablet RxNorm: 263999 1 Tablet(s) PO QD TAKE ONE TABLET BY MOUTH EVERY DAY 10/26/2015 04/22/2016 Inactive Singulair 10 mg tablet RxNorm: 777830 TAKE ONE TABLET BY MOUTH JOSÉ Y 10/26/2015 11/17/2015 Inactive duloxetine 60 mg capsule,delayed release RxNorm: 338287 1 Capsu le(s) PO QD 10/26/2015 04/22/2016 Inactive triamterene 75 mg-hydrochlorothiazide 50 mg tablet RxNorm: 3 46388 1 Tablet(s) PO QD 10/26/2015 11/14/2016 Inactive potassium chloride ER 20 mEq tablet,extended release(part/cr yst) RxNorm: 625736 2 Tablet(s) PO BID 10/26/2015 02/14/2016 Inactive Lipitor 10 mg tablet RxNorm: 073536 1 Tablet(s) PO QHS 10/26/2015 Inactive amlodipine 5 mg-benazepril 20 mg capsule RxNorm: 617434 1 Capsule(s) PO QHS replaces amlodopine 10/26/2015 04/22/2016 Inactive Bystolic 10 mg tablet RxNorm: 701513 1 Tablet(s) PO QHS 10/26/2015 Inactive amlodipine 5 mg-benazepril 20 mg capsule RxNorm: 763529 1 Capsule(s) PO QHS replaces amlodopine 10/06/2015 10/25/2015 Inactive amlodipine 5 mg tablet RxNorm: 320112 1 Tablet(s) PO QHS 09/30/2015 0 04/25/2016 Inactive metolazone 2.5 mg tablet RxNorm: 590088 TAKE ONE TABLET BY MOUTH DAILY NEEDED FOR EDEMA 09/30/2015 01/21/2019 Inactive duloxetine 60 mg capsule,delayed release RxNorm: 339202 1 Capsu le(s) PO QD 09/30/2015 10/25/2015 Inactive cephalexin 500 mg capsule RxNorm: 429293 1 Capsule(s) PO BID 201509/23/2015 Inactive mupirocin 2 % topical ointment RxNorm: 358451 TOP twice daily to affected areas of face and neck 09/14/2015 02/20/2016 Inactive baclofen 20 mg tablet RxNorm: 849597 1 Tablet(s) PO TID as needed for muscle spasm 09/01/2015 11/14/2016 Inactive clonidine HCl 0.1 mg tablet RxNorm: 554616 1 Tablet(s) PO QID 09/0102/14/2016 Inactive alprazolam 1 mg tablet RxNorm: 594956 1 1/2 Tablet(s) PO QHS 201409/09/2015 Inactive baclofen 20 mg tablet RxNorm: 961659 1 Tablet(s) PO TID as needed for muscle spasm 07/23/2015 09/01/2015 Inactive omeprazole 40 mg capsule,delayed release RxNorm: 514291 1 Capsu le(s) PO QD 07/23/2015 04/25/2016 Inactive alprazolam 1 mg tablet RxNorm: 015858 1 1/2 Tablet(s) PO QHS 201408/10/2015 Inactive Bystolic 10 mg tablet RxNorm: 327658 1 Tablet(s) PO BID 06/24/2015 Inactive allopurinol 300 mg tablet RxNorm: 602650 1 Tablet(s) PO QD TAKE ONE TABLET BY MOUTH EVERY DAY 06/23/2015 10/20/2015 Inactive alprazolam 1 mg tablet RxNorm: 335015 1 1/2 Tablet(s) PO QHS 201407/06/2015 Inactive clonidine HCl 0.1 mg tablet RxNorm: 843077 1 Tablet(s) PO QID 06/0209/01/2015 Inactive clonidine HCl 0.1 mg tablet RxNorm: 007867 1 Tablet(s) PO QID 06/0206/01/2015 Inactive Cymbalta 60 mg capsule,delayed release RxNorm: 461648 1 Capsule (s) PO QHS 06/02/2015 08/30/2015 Inactive Cymbalta 60 mg capsule,delayed release RxNorm: 530627 1 Capsule (s) PO QHS 06/02/2015 06/01/2015 Inactive clonidine HCl 0.1 mg tablet RxNorm: 976908 1 Tablet(s) PO TID 05/3106/01/2015 Inactive replaces 0.2mg dose metolazone 2.5 mg tablet RxNorm: 085469 TAKE ONE TABLET BY MOUTH DAILY NEEDED FOR EDEMA 05/21/2015 06/19/2015 Inactive Singulair 10 mg tablet RxNorm: 132141 TAKE ONE TABLET BY MOUTH JOSÉ Y 05/21/2015 10/17/2015 Inactive Cymbalta 30 mg capsule,delayed release RxNorm: 920139 1 Capsule (s) PO QHS 05/20/2015 11/14/2016 Inactive betamethasone valerate 0.1 % topical cream RxNorm: 636544 Appli cation TOP BID 05/10/2015 04/25/2016 Inactive Bactroban 2 % topical ointment RxNorm: 134349 Application TOP BID 0 05/10/2015 06/20/2015 Inactive baclofen 20 mg tablet RxNorm: 012980 1 Tablet(s) PO TID as needed 0 04/26/2015 07/23/2015 Inactive Lipitor 10 mg tablet RxNorm: 873156 1 Tablet(s) PO QHS 04/26/201508/2016 Inactive clonidine HCl 0.1 mg tablet RxNorm: 553078 1 Tablet(s) PO TID 04/2605/30/2015 Inactive replaces 0.2mg dose Klor-Con 8 mEq tablet,extended release RxNorm: 169222 1 Tablet( s) PO BID 04/26/2015 04/25/2016 Inactive metolazone 2.5 mg tablet RxNorm: 474541 1 Tablet(s) PO QD as ne eded for edema 04/26/2015 04/25/2015 Inactive triamterene 75 mg-hydrochlorothiazide 50 mg tablet RxNorm: 3 66589 1 Tablet(s) PO QD 04/26/2015 10/22/2015 Inactive Premarin 1.25 mg tablet RxNorm: 641082 1-2 Tablet(s) PO QD 04/26/20 15 10/22/2015 Inactive Bystolic 10 mg tablet RxNorm: 738890 1 Tablet(s) PO QAM TAKE ONE TABLET BY MOUTH EVERY MORNING 04/23/2015 06/23/2015 Inactive clonidine HCl 0.1 mg tablet RxNorm: 009876 1 Tablet(s) PO TID 03/2304/25/2015 Inactive replaces 0.2mg dose nystatin 100,000 unit/gram topical cream RxNorm: 857970 Applica tion TOP BID 03/23/2015 06/20/2015 Inactive baclofen 20 mg tablet RxNorm: 785189 1 Tablet(s) PO TID as needed 0 03/23/2015 04/25/2015 Inactive Premarin 1.25 mg tablet RxNorm: 220425 1-2 Tablet(s) PO QD 03/23/20 15 04/25/2015 Inactive Klor-Con 8 mEq tablet,extended release RxNorm: 927000 1 Tablet( s) PO BID 03/23/2015 04/25/2015 Inactive cefdinir 300 mg capsule RxNorm: 356344 2 Capsule(s) PO QD 03/16/2015 03/25/2015 Inactive baclofen 20 mg tablet RxNorm: 167318 1 Tablet(s) PO TID as needed 0 03/02/2015 03/22/2015 Inactive allopurinol 300 mg tablet RxNorm: 673517 1 Tablet(s) PO QD TAKE ONE TABLET BY MOUTH EVERY DAY 02/22/2015 05/22/2015 Inactive Klor-Con M20 mEq tablet,extended release RxNorm: 253988 2 Tablet(s) PO BID to use with lasix 02/22/2015 06/20/2015 Inactive clonidine HCl 0.1 mg tablet RxNorm: 035899 1 Tablet(s) PO TID 02/1903/22/2015 Inactive replaces 0.2mg dose Lipitor 10 mg tablet RxNorm: 513207 1 Tablet(s) PO QHS 01/20/201506/2015 Inactive Lipitor 10 mg tablet RxNorm: 203724 1 Tablet(s) PO QHS 01/20/2015 Inactive Singulair 10 mg tablet RxNorm: 777920 1 Tablet(s) PO QD TAKE ONE TABLET BY MOUTH EVERY DAY 11/20/2014 05/18/2015 Inactive Lipitor 10 mg tablet RxNorm: 021835 1 Tablet(s) PO QHS 11/20/201408/2015 Inactive allopurinol 300 mg tablet RxNorm: 625841 1 Tablet(s) PO QD TAKE ONE TABLET BY MOUTH EVERY DAY 11/20/2014 02/16/2015 Inactive Bystolic 10 mg tablet RxNorm: 745934 1 Tablet(s) PO QAM TAKE ONE TABLET BY MOUTH EVERY MORNING 11/20/2014 04/22/2015 Inactive Klor-Con 8 mEq tablet,extended release RxNorm: 499457 1 Tablet( s) PO BID 11/20/2014 02/17/2015 Inactive baclofen 20 mg tablet RxNorm: 448652 1 Tablet(s) PO TID as needed 0 11/20/2014 01/21/2019 Inactive baclofen 20 mg tablet RxNorm: 192344 1 Tablet(s) PO TID as needed 0 10/27/2014 11/19/2014 Inactive baclofen 20 mg tablet RxNorm: 526938 1 Tablet(s) PO TID as needed 0 10/26/2014 03/01/2015 Inactive allopurinol 300 mg tablet RxNorm: 234218 1 Tablet(s) PO QD TAKE ONE TABLET BY MOUTH EVERY DAY 10/26/2014 11/20/2014 Inactive Bystolic 10 mg tablet RxNorm: 296306 1 Tablet(s) PO QAM TAKE ONE TABLET BY MOUTH EVERY MORNING 10/26/2014 11/20/2014 Inactive clonidine HCl 0.1 mg tablet RxNorm: 457285 1 Tablet(s) PO TID 09/2805/27/2019 Inactive replaces 0.2mg dose clonidine HCl 0.1 mg tablet RxNorm: 428130 1 Tablet(s) PO TID 09/2802/18/2015 Inactive replaces 0.2mg dose baclofen 20 mg tablet RxNorm: 535323 1 Tablet(s) PO TID as needed 1 11/01/2013 08/30/2014 Inactive Lipitor 10 mg tablet RxNorm: 037473 1 Tablet(s) PO QHS 08/31/2014 Inactive baclofen 20 mg tablet RxNorm: 282223 1 Tablet(s) PO TID as needed 1 11/01/2013 10/26/2014 Inactive triamterene 75 mg-hydrochlorothiazide 50 mg tablet RxNorm: 3 29418 1 Tablet(s) PO QD 08/31/2014 02/26/2015 Inactive Klor-Con 8 mEq tablet,extended release RxNorm: 004481 1 Tablet( s) PO BID 08/31/2014 11/20/2014 Inactive baclofen 20 mg tablet RxNorm: 761080 1 Tablet(s) PO TID as needed 1 09/30/2013 10/25/2014 Inactive baclofen 20 mg tablet RxNorm: 371452 1 Tablet(s) PO TID as needed 1 09/30/2013 08/31/2014 Inactive omeprazole 40 mg capsule,delayed release RxNorm: 584421 1 Capsu le(s) PO QD 07/21/2014 07/23/2015 Inactive Flonase 50 mcg/actuation nasal spray,suspension RxNorm: 8963 23 1 [facility] NASAL BID 07/15/2014 04/09/2017 Inactive hydrocodone 10 mg-acetaminophen 325 mg tablet RxNorm: 277531 1-2 Tablet(s) QID as needed for pain TAKE ONE TO TWO TABLETS BY MOUTH FOUR TIMES A DAY . MUST LAST 30 DAYS 06/30/2014 07/27/2014 Inactive (Response to an electronic controlled substance refill request - RxReferenceNumber: [id number]) baclofen 20 mg tablet RxNorm: 883282 1 Tablet(s) PO TID as needed 1 07/31/2014 Inactive Singulair 10 mg tablet RxNorm: 015018 1 Tablet(s) PO QD TAKE ONE TABLET BY MOUTH EVERY DAY 05/25/2014 11/20/2014 Inactive Bystolic 10 mg tablet RxNorm: 457638 TAKE ONE TABLET BY MOUTH E VERY MORNING 05/25/2014 09/21/2014 Inactive allopurinol 300 mg tablet RxNorm: 788655 1 Tablet(s) PO QD TAKE ONE TABLET BY MOUTH EVERY DAY 05/25/2014 10/21/2014 Inactive baclofen 20 mg tablet RxNorm: 743812 1 Tablet(s) PO TID as needed 0 05/25/2014 06/29/2014 Inactive allopurinol 300 mg tablet RxNorm: 659028 TAKE ONE TABLET BY LOPEZ TH EVERY DAY 05/25/2014 09/21/2014 Inactive Singulair 10 mg tablet RxNorm: 582104 1 Tablet(s) PO QD TAKE ONE TABLET BY MOUTH EVERY DAY 05/25/2014 05/24/2014 Inactive Bystolic 10 mg tablet RxNorm: 264149 1 Tablet(s) PO QAM TAKE ONE TABLET BY MOUTH EVERY MORNING 05/25/2014 10/21/2014 Inactive metolazone 2.5 mg tablet RxNorm: 684570 1 Tablet(s) PO QD as ne eded for edema 05/18/2014 04/25/2015 Inactive Lasix 40 mg tablet RxNorm: 514297 1 Tablet(s) PO QAM s ashley take potassium supplementation with this medication 05/14/2014 05/17/2014 Inactive hydrocodone 10 mg-acetaminophen 325 mg tablet RxNorm: 095305 1-2 Tablet(s) QID as needed for pain TAKE ONE TO TWO TABLETS BY MOUTH FOUR TIMES A DAY . MUST LAST 30 DAYS 05/07/2014 06/05/2014 Inactive (Response to an electronic controlled substance refill request - RxReferenceNumber: [id number]) alprazolam 0.5 mg tablet RxNorm: 501406 TAKE ONE TABLET BY MOUTH TWICE A DAY , MUST LAST 30 DAYS 05/07/2014 05/22/2016 Inactive (Response to a n electronic controlled substance refill request - RxReferenceNumber: [id number]) diclofenac sodium 75 mg tablet,delayed release RxNorm: 19486 6 1 Tablet(s) PO BID for pain 04/24/2014 07/20/2014 Inactive Celebrex 200 mg capsule RxNorm: 774042 TAKE ONE CAPSULE BY MOUT H EVERY DAY 04/24/2014 07/20/2014 Inactive alprazolam 0.5 mg tablet RxNorm: 730386 TAKE ONE TABLET BY MOUTH TWICE A DAY , MUST LAST 30 DAYS 03/24/2014 04/22/2014 Inactive (Response to a n electronic controlled substance refill request - RxReferenceNumber: [id number]) diclofenac sodium 75 mg tablet,delayed release RxNorm: 58728 6 1 Tablet(s) PO BID for pain 03/24/2014 04/24/2014 Inactive clonidine HCl 0.1 mg tablet RxNorm: 528177 1 Tablet(s) PO TID 03/2409/28/2014 Inactive replaces 0.2mg dose Klor-Con 8 mEq tablet,extended release RxNorm: 910674 1 Tablet( s) PO BID 02/26/2014 08/31/2014 Inactive diclofenac sodium 75 mg tablet,delayed release RxNorm: 90424 6 1 Tablet(s) PO BID for pain 02/25/2014 03/24/2014 Inactive hydrocodone 10 mg-acetaminophen 325 mg tablet RxNorm: 626936 1-2 Tablet(s) QID as needed for pain TAKE ONE TO TWO TABLETS BY MOUTH FOUR TIMES A DAY . MUST LAST 30 DAYS 02/25/2014 03/26/2014 Inactive (Response to an electronic controlled substance refill request - RxReferenceNumber: [id number]) alprazolam 0.5 mg tablet RxNorm: 311153 Tablet(s) PO BI D as needed for anxiety TAKE ONE TABLET BY MOUTH TWICE A DAY , MUST LAST 30 DAYS 02/25/2014 Inactive (Response to an electronic controlled [place] bstance refill request - RxReferenceNumber: [id number]) [AttnRPh: Saving apply/adjudicate RxGRP:SG20 RxBIN:[id number] RxPCN: ID#:[id number]] alprazolam 0.5 mg tablet RxNorm: 292182 Tablet(s) TAKE ONE TABLET BY MOUTH TWICE A DAY , MUST LAST 30 DAYS 01/27/2014 02/24/2014 Inactive (Respo nse to an electronic controlled substance refill request - RxReferenceNumber: [id number]) [AttnRPh: Saving apply/adjudicate RxGRP:SG20 RxBIN:[id number] RxPCN:HT ID#:[id number]] hydrocodone 10 mg-acetaminophen 325 mg tablet RxNorm: 040596 1-2 Tablet(s) QID as needed for pain TAKE ONE TO TWO TABLETS BY MOUTH FOUR TIMES A DAY . MUST LAST 30 DAYS 01/27/2014 02/24/2014 Inactive (Response to an electronic controlled substance refill request - RxReferenceNumber: [id number]) alprazolam 0.5 mg tablet RxNorm: 025996 TAKE ONE TABLET BY MOUTH TWICE A DAY , MUST LAST 30 DAYS 01/27/2014 01/26/2014 Inactive (Response to a n electronic controlled substance refill request - RxReferenceNumber: [id number]) Premarin 1.25 mg tablet RxNorm: 906352 1-2 Tablet(s) PO QD 01/28/20 14 07/25/2014 Inactive alprazolam 0.5 mg tablet RxNorm: 824055 TAKE ONE TABLET BY MOUTH TWICE A DAY , MUST LAST 30 DAYS 01/27/2014 01/27/2014 Inactive (Response to a n electronic controlled substance refill request - RxReferenceNumber: [id number]) hydrocodone 10 mg-acetaminophen 325 mg tablet RxNorm: 035980 TAKE ONE TO TWO TABLETS BY MOUTH FOUR TIMES A DAY . MUST LAST 30 DAYS 01/27/20142013 Inactive (Response to an electronic controlled [place] bstance refill request - RxReferenceNumber: [id number]) Celebrex 200 mg capsule RxNorm: 504794 1 Capsule(s) PO QD TAKE ONE CAPSULE BY MOUTH EVERY DAY 12/29/2013 04/27/2014 Inactive hydrocodone 10 mg-acetaminophen 325 mg tablet RxNorm: 003751 1-2 Tablet(s) PO QID as needed for severe pain 12/29/2013 01/27/2014 Inactive allopurinol 300 mg tablet RxNorm: 899337 1 Tablet(s) PO QD TAKE ONE TABLET BY MOUTH EVERY DAY 12/29/2013 05/24/2014 Inactive alprazolam 0.5 mg tablet RxNorm: 591692 TAKE ONE TABLET BY MOUTH TWICE A DAY , MUST LAST 30 DAYS 12/29/2013 01/27/2014 Inactive (Response to a n electronic controlled substance refill request - RxReferenceNumber: [id number]) Celebrex 200 mg capsule RxNorm: 665602 1 Capsule(s) PO QD TAKE ONE CAPSULE BY MOUTH EVERY DAY 12/29/2013 12/29/2013 Inactive Bystolic 10 mg tablet RxNorm: 483754 1 Tablet(s) PO QAM TAKE ONE TABLET BY MOUTH EVERY MORNING 12/29/2013 05/24/2014 Inactive Bystolic 10 mg tablet RxNorm: 350024 1 Tablet(s) PO QAM TAKE ONE TABLET BY MOUTH EVERY MORNING 12/29/2013 12/29/2013 Inactive Singulair 10 mg tablet RxNorm: 415595 1 Tablet(s) PO QD TAKE ONE TABLET BY MOUTH EVERY DAY 12/29/2013 05/25/2014 Inactive hydrocodone 10 mg-acetaminophen 325 mg tablet RxNorm: 198324 TAKE ONE TO TWO TABLETS BY MOUTH FOUR TIMES A DAY . MUST LAST 30 DAYS 12/29/20132013 Inactive (Response to an electronic controlled [place] bstance refill request - RxReferenceNumber: [id number]) Trazadone 75mg Tablet RxNorm: 1 Tablet(s) PO QHS as needed 03/23/2014 Inactive Trazadone 75mg Tablet RxNorm: 1 Tablet(s) PO QHS 12/24/20132014 Inactive Soma 350 mg tablet RxNorm: 238234 Tablet(s) PO TAKE ON E TABLET BY MOUTH THREE TIMES A DAY NEEDED FOR MUSCLE SPASMS. THIS MUST LAST 30 DAYS BETWEEN REFILLS. 12/10/2013 12/22/2013 Inactive (Appended: Cont rolled substance eRx refill - RxReferenceNumber: [id number]) diclofenac sodium 75 mg tablet,delayed release RxNorm: 04328 6 1 Tablet(s) PO BID for pain 12/10/2013 02/24/2014 Inactive allopurinol 300 mg tablet RxNorm: 461324 1 Tablet(s) PO QD 11/20/19 14 12/29/2013 Inactive alprazolam 0.5 mg tablet RxNorm: 422505 2 Tablet(s) PO BID 11/13/19 14 12/29/2013 Inactive prn clonidine 0.1 mg tablet RxNorm: 358461 1 Tablet(s) PO TID 11/12/2013 02/09/2014 Inactive replaces 0.2mg dose Klor-Con M20 mEq tablet,extended release RxNorm: 450806 2 Tablet(s) PO BID to use with lasix 11/12/2013 05/10/2014 Inactive Singulair 10 mg tablet RxNorm: 808710 1 Tablet(s) PO QD 11/12/2013 Inactive hydrocodone 10 mg-acetaminophen 325 mg tablet RxNorm: 525037 1-2 Tablet(s) PO QID as needed for severe pain 11/12/2013 12/28/2013 Inactive Bystolic 10 mg tablet RxNorm: 261114 1 Tablet(s) PO QAM 11/12/2013 Inactive Soma 350 mg tablet RxNorm: 297230 Tablet(s) PO TAKE ON E TABLET BY MOUTH THREE TIMES A DAY NEEDED FOR MUSCLE SPASMS. THIS MUST LAST 30 DAYS BETWEEN REFILLS. 10/13/2013 12/10/2013 Inactive (Appended: Cont rolled substance eRx refill - RxReferenceNumber: [id number]) hydrocodone 10 mg-acetaminophen 325 mg tablet RxNorm: 632243 1-2 Tablet(s) PO QID as needed for severe pain 10/03/2013 11/11/2013 Inactive diclofenac sodium 75 mg tablet,delayed release RxNorm: 34035 8 1 Tablet(s) PO BID for pain 09/11/2013 12/10/2013 Inactive alprazolam 0.5 mg tablet RxNorm: 591571 1 Tablet(s) PO BID May refill on 04/26/13 09/01/2013 10/30/2013 Inactive prn hydrocodone 10 mg-acetaminophen 325 mg tablet RxNorm: 501894 1-2 Tablet(s) PO QID as needed for severe pain 09/01/2013 10/02/2013 Inactive triamterene 75 mg-hydrochlorothiazide 50 mg tablet RxNorm: 3 38933 1 Tablet(s) PO QD 08/04/2013 08/31/2014 Inactive cyclobenzaprine 10 mg tablet RxNorm: 659606 1 Tablet(s) PO TID prn spasm 08/04/2013 08/13/2013 Inactive clonidine 0.1 mg tablet RxNorm: 547120 1 Tablet(s) PO TID 08/04/2013 11/11/2013 Inactive replaces 0.2mg dose cyclobenzaprine 10 mg tablet RxNorm: 897475 1 Tablet(s) PO TID prn spasm 07/23/2013 08/01/2013 Inactive hydrocodone 10 mg-acetaminophen 325 mg tablet RxNorm: 413796 2 1-2 Tablet(s) PO QID as needed for severe pain 06/09/2013 08/07/2013 Inactive Singulair 10 mg tablet RxNorm: 995025 1 Tablet(s) PO QD 05/29/2013 Inactive Klor-Con 8 mEq tablet,extended release RxNorm: 506281 1 Tablet( s) PO BID 05/29/2013 02/26/2014 Inactive allopurinol 300 mg tablet RxNorm: 393774 1 Tablet(s) PO QD 05/29/20 13 11/19/2013 Inactive Bystolic 10 mg tablet RxNorm: 594063 1 Tablet(s) PO QAM take one daily in the morning. 05/29/2013 11/11/2013 Inactive scopolamine 1.5 mg 72 hr Transderm Patch RxNorm: 447612 Application TD Q72H for motion sickness 05/26/2013 07/22/2013 Inactive Soma 350 mg tablet RxNorm: 388699 1 Tablet(s) PO TID as needed for spasm 05/19/2013 10/13/2013 Inactive diclofenac sodium 75 mg tablet,delayed release RxNorm: 07665 8 1 Tablet(s) PO BID for pain 05/14/2013 07/22/2013 Inactive allopurinol 300 mg tablet RxNorm: 847809 1 Tablet(s) PO QD 04/25/2005/28/2013 Inactive alprazolam 0.5 mg tablet RxNorm: 676491 1 Tablet(s) PO BID May refill on 04/26/13 04/25/2013 06/23/2013 Inactive prn Celebrex 200 mg capsule RxNorm: 645802 1 Capsule(s) PO QD 04/16/2013 12/29/2013 Inactive alprazolam 0.5 mg tablet RxNorm: 661139 1 Tablet(s) PO BID May refill on 04/26/13 04/16/2013 04/24/2013 Inactive prn Soma 350 mg tablet RxNorm: 816658 1 Tablet(s) PO TID as needed for spasm 04/16/2013 No Stop Date Active Lasix 40 mg tablet RxNorm: 207102 1 Tablet(s) PO QAM s hould take potassium supplementation with this medication 04/16/2013 06/14/2013 Inactive clonidine 0.1 mg tablet RxNorm: 226838 1 Tablet(s) PO TID 04/16/2013 08/03/2013 Inactive replaces 0.2mg dose prednisone 20 mg tablet RxNorm: 346122 1 Tablet(s) PO BID 04/16/2013 04/20/2013 Inactive diclofenac sodium 75 mg tablet,delayed release RxNorm: 30342 8 1 Tablet(s) PO BID for pain 04/14/2013 05/13/2013 Inactive hydrocodone 10 mg-acetaminophen 325 mg tablet RxNorm: 147989 2 1-2 Tablet(s) PO QID as needed for severe pain 04/14/2013 No Stop Date Active Lasix 40 mg tablet RxNorm: 337307 1 Tablet(s) PO QAM alan ramirez take potassium supplementation with this medication 03/31/2013 04/15/2013 Inactive Celebrex 200 mg capsule RxNorm: 580852 1 Capsule(s) PO QD 03/31/2013 04/15/2013 Inactive alprazolam 0.5 mg tablet RxNorm: 539334 1 Tablet(s) PO BID 03/28/20 13 04/15/2013 Inactive prn hydrocodone 10 mg-acetaminophen 325 mg tablet RxNorm: 465463 2 1-2 Tablet(s) PO QID as needed for severe pain 03/10/2013 No Stop Date Active metformin ER 500 mg 24 hr tablet,extended release RxNorm: 86 1018 1 Tablet(s) PO QD 03/06/2013 07/22/2013 Inactive clindamycin 300 mg capsule RxNorm: 775253 2 Capsule(s) PO TID 03/0503/14/2013 Inactive Zaroxolyn 2.5 mg tablet RxNorm: 383833 1 Tablet(s) PO QAM 03/05/2013 05/19/2015 Inactive amlodipine 10 mg tablet RxNorm: 726013 1 Tablet(s) PO QD 03/03/2013 0 05/25/2013 Inactive Norvasc 10 mg tablet RxNorm: 471795 1 Tablet(s) PO QD 02/28/201307/11 Inactive Celebrex 200 mg capsule RxNorm: 523757 1 Capsule(s) PO QD 02/28/2013 03/30/2013 Inactive diclofenac sodium 75 mg tablet,delayed release RxNorm: 32001 8 1 Tablet(s) PO BID for pain 02/14/2013 03/15/2013 Inactive Soma 350 mg tablet RxNorm: 527541 1 Tablet(s) PO TID as needed for spasm 02/14/2013 No Stop Date Active hydrocodone 10 mg-acetaminophen 325 mg tablet RxNorm: 445441 2 1-2 Tablet(s) PO QID as needed for severe pain 02/14/2013 No Stop Date Active Norvasc 10 mg tablet RxNorm: 162630 1 Tablet(s) PO QD 02/10/201302/09 Inactive Celebrex 200 mg capsule RxNorm: 314036 1 Capsule(s) PO QD 01/27/2013 01/26/2013 Inactive Premarin 1.25 mg tablet RxNorm: 215862 1-2 Tablet(s) PO QD 01/28/20 13 06/25/2013 Inactive alprazolam 0.5 mg tablet RxNorm: 806963 1 Tablet(s) PO BID 01/28/20 13 02/25/2013 Inactive prn amlodipine 5 mg tablet RxNorm: 376534 1 Tablet(s) PO QD 01/27/2013 Inactive Celebrex 200 mg capsule RxNorm: 908922 1 Capsule(s) PO QD 01/27/2013 02/27/2013 Inactive gabapentin 600 mg tablet RxNorm: 424048 1 Tablet(s) PO QHS 01/16/20 13 07/22/2013 Inactive Soma 350 mg tablet RxNorm: 748678 1 Tablet(s) PO TID as needed for spasm 01/15/2013 No Stop Date Active hydrocodone 10 mg-acetaminophen 325 mg tablet RxNorm: 512683 2 1-2 Tablet(s) PO QID as needed for severe pain 01/15/2013 No Stop Date Active Soma 350 mg tablet RxNorm: 438367 1 Tablet(s) PO TID as needed for spasm 01/13/2013 No Stop Date Active alprazolam 0.5 mg tablet RxNorm: 444658 1 Tablet(s) PO BID 12/31/19 13 01/26/2013 Inactive prn diclofenac sodium 75 mg tablet,delayed release RxNorm: 08055 8 1 Tablet(s) PO BID for pain 12/09/2012 01/07/2013 Inactive gabapentin 600 mg tablet RxNorm: 405257 1 Tablet(s) PO QHS 12/10/19 13 01/07/2013 Inactive hydrocodone 10 mg-acetaminophen 325 mg tablet RxNorm: 294287 2 1-2 Tablet(s) PO QID as needed for severe pain 12/02/2012 No Stop Date Active Levaquin 750 mg tablet RxNorm: 317174 1 Tablet(s) PO QD 11/21/2012 Inactive Singulair 10 mg tablet RxNorm: 409543 1 Tablet(s) PO QD 11/11/2012 Inactive clonidine 0.2 mg tablet RxNorm: 790888 1 Tablet(s) PO TID 11/11/2012 04/15/2013 Inactive alprazolam 0.5 mg tablet RxNorm: 564862 1 Tablet(s) PO BID 11/12/19 13 12/10/2012 Inactive prn Klor-Con 8 mEq tablet,extended release RxNorm: 824042 1 Tablet( s) PO BID 11/11/2012 03/04/2013 Inactive hydrocodone 10 mg-acetaminophen 325 mg tablet RxNorm: 927422 2 1-2 Tablet(s) PO QID as needed for severe pain 11/06/2012 No Stop Date Active alprazolam 0.5 mg tablet RxNorm: 446513 1 Tablet(s) PO BID 10/15/19 13 11/10/2012 Inactive prn hydrocodone-acetaminophen 10 mg-325 mg tablet RxNorm: 940829 2 1-2 Tablet(s) PO QID as needed for severe pain 10/10/2012 10/09/2012 Inactive allopurinol 300 mg tablet RxNorm: 648477 1 Tablet(s) PO QD 09/20/19 13 12/18/2012 Inactive alprazolam 0.5 mg tablet RxNorm: 113785 1 Tablet(s) PO BID 09/17/19 13 10/14/2012 Inactive prn hydrocodone-acetaminophen 10 mg-325 mg tablet RxNorm: 572902 2 1-2 Tablet(s) PO QID as needed for severe pain 08/22/2012 08/21/2012 Inactive Norvasc 10 mg tablet RxNorm: 563433 1 Tablet(s) PO QD 08/12/201201/10 Inactive Premarin 1.25 mg tablet RxNorm: 849499 1-2 Tablet(s) PO QD 07/30/20 12 12/26/2012 Inactive alprazolam 0.5 mg tablet RxNorm: 592149 1 Tablet(s) PO BID 07/29/20 12 08/27/2012 Inactive prn Klor-Con 8 mEq tablet,extended release RxNorm: 854167 1 Tablet( s) PO BID 07/29/2012 11/10/2012 Inactive hydrocodone-acetaminophen 10 mg-325 mg tablet RxNorm: 815681 2 1-2 Tablet(s) PO QID as needed for severe pain 07/29/2012 No Stop Date Active Premarin 1.25 mg tablet RxNorm: 539353 1-2 Tablet(s) PO QD 07/29/20 12 07/29/2012 Inactive clonidine 0.2 mg tablet RxNorm: 996049 1 Tablet(s) PO TID 07/29/2012 10/28/2012 Inactive ketorolac 10 mg tablet RxNorm: 677147 1 Tablet(s) PO QID prn he adache 07/18/2012 No Stop Date Active hydrocodone-acetaminophen 10 mg-325 mg tablet RxNorm: 545162 2 1-2 Tablet(s) PO QID as needed for severe pain 07/03/2012 No Stop Date Active amlodipine 5 mg tablet RxNorm: 113000 1 Tablet(s) PO QD 07/02/2012 Inactive allopurinol 300 mg tablet RxNorm: 008730 1 Tablet(s) PO QD 07/02/2009/19/2012 Inactive Celebrex 200 mg capsule RxNorm: 069663 1 Capsule(s) PO QD for j oint pain 06/26/2012 10/23/2012 Inactive diclofenac sodium 75 mg tablet,delayed release RxNorm: 13225 8 1 Tablet(s) PO BID for pain 06/19/2012 09/16/2012 Inactive hydrocodone-acetaminophen 10 mg-325 mg tablet RxNorm: 219714 2 1-2 Tablet(s) PO QID as needed for severe pain 06/10/2012 No Stop Date Active alprazolam 0.5 mg tablet RxNorm: 212576 1 Tablet(s) PO BID 06/03/20 12 07/02/2012 Inactive prn ketorolac 10 mg tablet RxNorm: 589829 1 Tablet(s) PO Q8H 05/27/2012 0 01/21/2019 Inactive as needed for headache hydrocodone-acetaminophen 10 mg-325 mg tablet RxNorm: 714076 2 1-2 Tablet(s) PO QID as needed for severe pain 05/15/2012 No Stop Date Active allopurinol 300 mg tablet RxNorm: 563013 1 Tablet(s) PO QD 05/14/20 12 06/12/2012 Inactive allopurinol 300 mg tablet RxNorm: 459089 1 Tablet(s) PO QD 05/14/2005/13/2012 Inactive amlodipine 5 mg tablet RxNorm: 890417 1 Tablet(s) PO QD 05/01/2012 Inactive amlodipine 5 mg Tab RxNorm: 494152 1 Tablet(s) PO QD 05/01/201204/30 Inactive Celebrex 200 mg capsule RxNorm: 675436 1 Capsule(s) PO QD for j oint pain 05/01/2012 06/25/2012 Inactive Singulair 10 mg tablet RxNorm: 813636 1 Tablet(s) PO QD 05/01/2012 Inactive alprazolam 0.5 mg tablet RxNorm: 122523 1 Tablet(s) PO BID 05/01/20 12 05/30/2012 Inactive prn Celebrex 200 mg Cap RxNorm: 724142 1 Capsule(s) PO QD for joint radu n 05/01/2012 04/30/2012 Inactive hydrocodone-acetaminophen 10 mg-325 mg tablet RxNorm: 482109 2 1-2 Tablet(s) PO QID as needed for severe pain 04/19/2012 No Stop Date Active Lasix 40 mg tablet RxNorm: 687386 1 Tablet(s) PO CORTEZM alan rajwinderuld take potassium supplementation with this medication 04/05/2012 06/03/2012 Inactive alprazolam 0.5 mg Tab RxNorm: 829248 1 Tablet(s) PO BID 04/05/2012 Inactive prn hydrocodone-acetaminophen 10 mg-325 mg Tab RxNorm: 6603171 1-2 Tablet(s) PO QID as needed for severe pain 03/25/2012 03/24/2012 Inactive clonidine 0.2 mg Tab RxNorm: 383022 1 Tablet(s) PO TID 03/08/2012 Inactive alprazolam 0.5 mg Tab RxNorm: 208947 1 Tablet(s) PO BID 03/08/2012 Inactive prn Soma 350 mg tablet RxNorm: 398244 1 Tablet(s) PO TID for spasm 02/0903/18/2012 Inactive clonidine 0.2 mg tablet RxNorm: 439807 1 Tablet(s) PO TID 03/08/2012 07/28/2012 Inactive Celebrex 200 mg Cap RxNorm: 662969 1 Capsule(s) PO QD for joint radu n 03/01/2012 04/29/2012 Inactive amlodipine 5 mg Tab RxNorm: 771129 1 Tablet(s) PO QD 02/26/201202/24 Inactive amlodipine 5 mg Tab RxNorm: 607073 1 Tablet(s) PO QD 02/26/201204/25 Inactive Bactroban 2 % Ointment RxNorm: 496265 Application TOP QID to sores 02/23/2012 No Stop Date Active amlodipine 2.5 mg tablet RxNorm: 227579 1 Tablet(s) PO QHS 02/20/20 12 02/25/2012 Inactive doxycycline hyclate 100 mg Cap RxNorm: 9431856 1 Capsule(s) PO BID 02/20/2012 02/29/2012 Inactive hydrocodone-acetaminophen 10 mg-325 mg Tab RxNorm: 2777166 1-2 T ablet(s) PO QID 02/08/2012 No Stop Date Active alprazolam 0.5 mg Tab RxNorm: 463290 1 Tablet(s) PO BID 02/08/2012 Inactive prn Singulair 10 mg Tab RxNorm: 085510 1 Tablet(s) PO QD 02/08/201204/30 Inactive Soma 350 mg Tab RxNorm: 061912 1 Tablet(s) PO TID for spasm 012 03/07/2012 Inactive Soma 350 mg Tab RxNorm: 426409 1 Tablet(s) PO TID for spasm 012 02/05/2012 Inactive diclofenac sodium 75 mg tablet,delayed release RxNorm: 62807 8 1 Tablet(s) PO BID for pain 02/01/2012 03/18/2012 Inactive Celebrex 200 mg Cap RxNorm: 036877 1 Capsule(s) PO QD for joint radu n 01/30/2012 02/28/2012 Inactive Lasix 40 mg Tab RxNorm: 432386 1 Tablet(s) PO QAM 01/24/2012 03/18/20 12 Inactive potassium chloride ER 20 mEq tablet,extended release(part/cr yst) RxNorm: 165328 2 Tablet(s) PO BID 01/24/2012 02/22/2012 Inactive alprazolam 0.5 mg Tab RxNorm: 782365 1 Tablet(s) PO BID 01/11/2012 Inactive prn hydrocodone-acetaminophen 10 mg-325 mg Tab RxNorm: 7361758 1-2 T ablet(s) PO QID 01/11/2012 No Stop Date Active Ambien 10 mg Tab RxNorm: 508922 1 Tablet(s) PO QHS 01/11/2012 012 Inactive Klor-Con 8 mEq Tab RxNorm: 043513 1 Tablet(s) PO BID 01/11/201201/22 Inactive diclofenac sodium 75 mg Tab, Delayed Release RxNorm: 592253 1 Tablet(s) PO BID for pain 01/10/2012 01/31/2012 Inactive Ambien 10 mg Tab RxNorm: 111042 1 Tablet(s) PO QHS 12/11/2011 012 Inactive alprazolam 0.5 mg Tab RxNorm: 411725 1 Tablet(s) PO BID 12/11/2011 Inactive prn hydrocodone 10 mg-acetaminophen 325 mg tablet RxNorm: 378366 1-2 Tablet(s) PO TID 11/28/2011 No Stop Date Active as needed for pa in - Previous quantity #240, will start dosing for #180 in April 2011 per Doctor Td. Ambien 10 mg Tab RxNorm: 648881 1 Tablet(s) PO QHS 11/09/2011 012 Inactive alprazolam 0.5 mg Tab RxNorm: 748036 1 Tablet(s) PO BID 11/09/2011 Inactive prn hydrocodone-acetaminophen 10 mg-325 mg Tab RxNorm: 3743470 1-2 T ablet(s) PO TID 11/06/2011 No Stop Date Active as needed for pain - Previous quantity #240, will start dosing for #180 in April 2011 per Doctor Td. Singulair 10 mg Tab RxNorm: 103894 1 Tablet(s) PO QD 10/13/201110/12 Inactive Singulair 10 mg Tab RxNorm: 615556 1 Tablet(s) PO QD 10/13/201102/06 Inactive hydrocodone-acetaminophen 10 mg-325 mg Tab RxNorm: 4423721 1-2 T ablet(s) PO TID 10/10/2011 10/09/2011 Inactive as needed for pain - Previous quantity #240, will start dosing for #180 in April 2011 per Doctor Td. hydrocodone-acetaminophen 10 mg-325 mg Tab RxNorm: 4226114 1-2 T ablet(s) PO TID 10/09/2011 No Stop Date Active as needed for pain - Previous quantity #240, will start dosing for #180 in April 2011 per Doctor Td. Klor-Con 8 mEq Tab RxNorm: 950614 1 Tablet(s) PO BID 10/02/201101/09 Inactive triamterene 75 mg-hydrochlorothiazide 50 mg tablet RxNorm: 3 53111 1 Tablet(s) PO QD 09/14/2011 03/06/2013 Inactive Ambien 10 mg Tab RxNorm: 005161 1 Tablet(s) PO QHS 09/14/2011 012 Inactive hydrocodone-acetaminophen 10 mg-325 mg Tab RxNorm: 3074163 1-2 T ablet(s) PO TID 09/14/2011 No Stop Date Active as needed for pain - Previous quantity #240, will start dosing for #180 in April 2011 per Doctor Td. alprazolam 0.5 mg Tab RxNorm: 693509 1 Tablet(s) PO BID 09/14/2011 Inactive prn Zithromax 500 mg Tab RxNorm: 951687 1 Tablet(s) PO QD 09/13/201109/10 Inactive prednisone 20 mg Tab RxNorm: 068011 1 Tablet(s) PO BID 08/31/2011 Inactive Ambien 10 mg Tab RxNorm: 041562 1 Tablet(s) PO QHS 08/17/2011 011 Inactive hydrocodone-acetaminophen 10 mg-325 mg Tab RxNorm: 8283232 1-2 T ablet(s) PO TID 08/17/2011 No Stop Date Active as needed for pain - Previous quantity #240, will start dosing for #180 in April 2011 per Doctor Td. clonidine 0.2 mg Tab RxNorm: 148136 1 Tablet(s) PO TID 08/17/201112/2011 Inactive Ambien 10 mg Tab RxNorm: 077348 1 Tablet(s) PO QHS 08/17/2011 019 Inactive alprazolam 0.5 mg Tab RxNorm: 907415 1 Tablet(s) PO BID 08/17/2011 Inactive prn hydrocodone-acetaminophen 10 mg-325 mg Tab RxNorm: 9054266 1-2 T ablet(s) PO TID 08/17/2011 08/16/2011 Inactive as needed for pain - Previous quantity #240, will start dosing for #180 in April 2011 per Doctor Td. Singulair 10 mg Tab RxNorm: 237270 1 Tablet(s) PO QD 08/17/201108/16 Inactive Klor-Con 8 mEq Tab RxNorm: 230015 1 Tablet(s) PO QD 08/17/20112011 Inactive alprazolam 0.5 mg Tab RxNorm: 289726 1 Tablet(s) PO BID 07/20/2011 Inactive prn Ambien 10 mg Tab RxNorm: 492337 1 Tablet(s) PO QHS 07/20/2011 012 Inactive Singulair 10 mg Tab RxNorm: 209005 1 Tablet(s) PO QD 07/20/201107/19 Inactive Premarin 1.25 mg tablet RxNorm: 757593 2 Tablet(s) PO QD 07/20/2011 0 01/21/2019 Inactive Premarin 1.25 mg tablet RxNorm: 925816 1-2 Tablet(s) PO QD 07/20/20 11 12/16/2011 Inactive Premarin 1.25 mg Tab RxNorm: 709888 1-2 Tablet(s) PO QD 07/06/2011 Inactive alprazolam 0.5 mg Tab RxNorm: 363187 1 Tablet(s) PO BID 06/22/2011 Inactive prn alprazolam 0.5 mg Tab RxNorm: 864728 1 Tablet(s) PO BID 06/22/2011 Inactive prn Premarin 1.25 mg Tab RxNorm: 873525 1 Tablet(s) PO QD m ay do 90 day fill if desired 06/22/2011 07/05/2011 Inactive hydrocodone-acetaminophen 10 mg-325 mg Tab RxNorm: 1536890 1-2 T ablet(s) PO TID 06/22/2011 No Stop Date Active as needed for pain - Previous quantity #240, will start dosing for #180 in April 2011 per Doctor Td. clonidine 0.2 mg Tab RxNorm: 091819 1 Tablet(s) PO TID 05/25/201103/2011 Inactive triamterene-hydrochlorothiazide 75 mg-50 mg Tab RxNorm: 3108 18 1 Tablet(s) PO QD 05/25/2011 09/13/2011 Inactive alprazolam 0.5 mg Tab RxNorm: 991235 1 Tablet(s) PO BID 05/25/2011 Inactive prn hydrocodone-acetaminophen 10 mg-325 mg Tab RxNorm: 0117906 1-2 T ablet(s) PO TID 05/25/2011 No Stop Date Active as needed for pain - Previous quantity #240, will start dosing for #180 in April 2011 per Doctor Td. Robaxin-750 750 mg Tab RxNorm: 531683 2 Tablet(s) PO QHS 05/22/2011 1 Inactive prn spasm hydrocodone-acetaminophen 10 mg-325 mg Tab RxNorm: 8983181 1-2 T ablet(s) PO TID 04/26/2011 No Stop Date Active as needed for pain - Previous quantity #240, will start dosing for #180 in April 2011 per Doctor Td. alprazolam 0.5 mg Tab RxNorm: 178177 1 Tablet(s) PO BID 04/25/2011 Inactive prn Klor-Con 8 mEq Tab RxNorm: 727557 1 Tablet(s) PO QD 03/30/20112010 Inactive Klor-Con 8 mEq Tab RxNorm: 151768 1 Tablet(s) PO QD 03/29/20112010 Inactive hydrocodone-acetaminophen 10 mg-325 mg Tab RxNorm: 3827940 1-2 T ablet(s) PO TID 03/20/2011 04/25/2011 Inactive as needed for pain - Previous quantity #240, will start dosing for #180 in April 2011 per Doctor Td. alprazolam 0.5 mg Tab RxNorm: 189535 1 Tablet(s) PO BID prn 011 03/30/2011 Inactive Ambien 10 mg Tab RxNorm: 021377 1 Tablet(s) PO QHS 03/01/2011 011 Inactive cyclobenzaprine 10 mg Tab RxNorm: 221856 1 Tablet(s) PO TID 011 03/18/2012 Inactive cyclobenzaprine 10 mg Tab RxNorm: 864093 1 Tablet(s) PO TID 011 01/08/2011 Inactive cyclobenzaprine 10 mg Tab RxNorm: 412564 1 Tablet(s) PO TID 011 12/20/2010 Inactive terbinafine 250 mg Tab RxNorm: 234661 1 Tablet(s) PO QD 12/12/2010 Inactive triamterene-hydrochlorothiazide 75 mg-50 mg Tab RxNorm: 3108 18 1 Tablet(s) PO QD 12/07/2010 06/04/2011 Inactive Klor-Con 8 8 mEq Tab RxNorm: 563721 1 Tablet(s) PO QD 12/07/201001/08 Inactive Premarin 1.25 mg Tab RxNorm: 030019 2 Tablet(s) PO QD 12/07/201001/08 Inactive clonidine 0.2 mg Tab RxNorm: 459400 1 Tablet(s) PO TID 12/07/2010 Inactive hydrocodone-acetaminophen 7.5 mg-650 mg Tab RxNorm: 115306 1 Ta blet(s) PO Q4H 12/05/2010 01/21/2019 Inactive hydrocodone-acetaminophen 7.5 mg-650 mg Tab RxNorm: 775923 1 Ta blet(s) PO Q4H 10/26/2010 11/14/2010 Inactive hydrocodone-acetaminophen 7.5 mg-650 mg Tab RxNorm: 478671 1 Ta blet(s) PO Q4H 10/13/2010 10/25/2010 Inactive hydrocodone-acetaminophen 7.5 mg-650 mg Tab RxNorm: 247462 1 Ta blet(s) PO Q4H 09/15/2010 09/12/2010 Inactive alprazolam 0.5 mg Tab RxNorm: 424931 1 Tablet(s) PO BID prn 011 09/12/2010 Inactive terbinafine 250 mg Tab RxNorm: 368351 1 Tablet(s) PO QD 09/05/2010 Inactive hydrocodone-acetaminophen 7.5 mg-650 mg Tab RxNorm: 551718 1 Ta blet(s) PO Q4H 08/29/2010 09/17/2010 Inactive alprazolam 0.5 mg Tab RxNorm: 547273 1 Tablet(s) PO BID prn 010 09/27/2010 Inactive alprazolam 0.5 mg Tab RxNorm: 914109 1 Tablet(s) PO BID prn 09/06/2010 Inactive Klor-Con 8 mEq Tab RxNorm: 435501 1 Tablet(s) PO QD 08/08/20102010 Inactive hydrocodone-acetaminophen 7.5 mg-650 mg Tab RxNorm: 302300 1 Ta blet(s) PO Q4H 08/08/2010 08/27/2010 Inactive Ambien 10 mg Tab RxNorm: 208863 1 Tablet(s) PO QHS 08/08/2010 Inactive clonidine 0.2 mg Tab RxNorm: 375946 1 Tablet(s) PO TID 08/08/2010 Inactive Premarin 1.25 mg Tab RxNorm: 575558 2 Tablet(s) PO QD 08/08/201009/12 Inactive Ambien 10 mg Tab RxNorm: 542339 1 Tablet(s) PO QHS 07/18/2010 Inactive alprazolam 0.5 mg Tab RxNorm: 932261 1 Tablet(s) PO BID prn 08/07/2010 Inactive hydrocodone-acetaminophen 7.5 mg-650 mg Tab RxNorm: 512448 1 Ta blet(s) PO Q4H 07/12/2010 07/31/2010 Inactive clonidine 0.2 mg Tab RxNorm: 682774 1 Tablet(s) PO TID 06/20/2010 Inactive terbinafine 250 mg Tab RxNorm: 415783 1 Tablet(s) PO QD 05/24/2010 Inactive Clonidine 0.2 mg Tab RxNorm: 322091 1 Tablet(s) PO TID 05/24/201006/2010 Inactive Ambien 10 mg Tab RxNorm: 866061 1 Tablet(s) PO QHS 05/24/2010 010 Inactive alprazolam 0.5 mg Tab RxNorm: 218686 1 Tablet(s) PO BID 05/24/2010 Inactive Klor-Con 8 mEq Tab RxNorm: 102099 1 Tablet(s) PO QD 05/24/20102009 Inactive alprazolam 0.5 mg Tab RxNorm: 514835 2 Tablet(s) PO QD prn 05/24/2007/17/2010 Inactive triamterene-hydrochlorothiazide 75 mg-50 mg Tab RxNorm: 3108 18 1 Tablet(s) PO QD 05/24/2010 11/19/2010 Inactive Ambien 10 mg Tab RxNorm: 815793 1 Tablet(s) PO QHS 05/23/2010 010 Inactive Alprazolam 0.5 mg Tab RxNorm: 580101 2 Tablet(s) PO QD prn 05/23/2005/23/2010 Inactive Premarin 1.25 mg Tab RxNorm: 155290 2 Tablet(s) PO QD 05/19/201007/12 Inactive Hydrocodone-Acetaminophen 7.5 mg-650 mg Tab RxNorm: 448691 1 Ta blet(s) PO Q4H 05/19/2010 03/20/2011 Inactive Prednisone 20 mg Tab RxNorm: 835673 1 Tablet(s) PO BID 05/17/2010 Inactive Prednisone 20 mg Tab RxNorm: 007612 1 Tablet(s) PO BID 05/06/201001/2010 Inactive Premarin 1.25 mg Tab RxNorm: 326740 Tablet(s) PO 2 M-W-F, and 1 Fk-Dj-Lla-Sun 05/05/2010 08/02/2010 Inactive Premarin 1.25 mg Tab RxNorm: 220629 Tablet(s) PO 2 M-W-F, and 1 Dg-Rc-Vks-Sun 05/04/2010 05/04/2010 Inactive Premarin 1.25 mg Tab RxNorm: 867765 Tablet(s) PO 2 M-W-F, and 1 Pe-Ap-CsfSun 05/04/2010 05/03/2010 Inactive Prednisone 20 mg Tab RxNorm: 430362 1 Tablet(s) PO BID 04/27/2010 Inactive Alprazolam 0.5 mg Tab RxNorm: 198822 2 Tablet(s) PO QD prn 04/26/20 10 05/22/2010 Inactive Clindamycin 300 mg Cap RxNorm: 793672 2 Capsule(s) PO TID 04/05/2010 04/18/2010 Inactive Terbinafine 250 mg Tab RxNorm: 450231 1 Tablet(s) PO QD 04/04/2010 Inactive Hydrocodone-Acetaminophen 7.5 mg-650 mg Tab RxNorm: 647340 1 Ta blet(s) PO Q4H 03/30/2010 04/18/2010 Inactive Avelox 400 mg Tab RxNorm: 965228 1 Tablet(s) PO QD 03/09/2010 010 Inactive Hydrocodone-Acetaminophen 7.5 mg-650 mg Tab RxNorm: 503014 1 Ta blet(s) PO Q4H 03/08/2010 03/27/2010 Inactive Alprazolam 0.5 mg Tab RxNorm: 680589 2 Tablet(s) PO QD prn 03/08/20 10 04/25/2010 Inactive Klor-Con 8 mEq Tab RxNorm: 606410 1 Tablet(s) PO QD when takes lasi x 03/07/2010 09/29/2019 Inactive Premarin 1.25 mg Tab RxNorm: 363539 1 Tablet(s) PO QD 03/03/201003/11 Inactive Alprazolam 0.5 mg Tab RxNorm: 043891 1 Tablet(s) PO BID PRN 010 No Stop Date Active triamterene-hydrochlorothiazide 75 mg-50 mg Tab RxNorm: 3108 18 1 Tablet(s) PO QD 02/09/2010 02/03/2011 Inactive Hydrocodone-Acetaminophen 10 mg-750 mg Tab RxNorm: 235322 1 Tablet(s) PO Q4H PRN 02/09/2010 03/20/2011 Inactive Clonidine 0.2 mg Tab RxNorm: 231387 1 Tablet(s) PO TID 01/13/201009/2009 Inactive Alprazolam 0.5 mg Tab RxNorm: 841510 1 Tablet(s) PO BID PRN 010 01/12/2010 Inactive Hydrocodone-Acetaminophen 10 mg-750 mg Tab RxNorm: 235284 1 Tablet(s) PO Q4H PRN 01/13/2010 01/12/2010 Inactive ANGELIQ 1 mg-0.5 mg Tab RxNorm: 1078333 1 Tablet(s) PO QD 12/27/2009 01/23/2010 Inactive Lasix 40 mg Tab RxNorm: 202156 1 Tablet(s) PO QAM 12/14/2009 06/11/20 10 Inactive Vitamin B12 1000mcg Tablet RxNorm: 1 Tablet(s) PO QD No Start Date Active cyclobenzaprine 10 mg tablet RxNorm: 161245 1 Tablet(s) PO TID as needed DO NOT USE WITH BACLOFEN No Start Date Active Vitamin D 5,000 unit Tab RxNorm: 1 Tablet(s) PO QD No Start Date Active vitamin E (dl, acetate) 400 unit Cap RxNorm: 579009 1 Capsule(s ) PO QD No Start Date Active Benadryl 25 mg Cap RxNorm: 3623118 Capsule(s) PO PRN No Start Date Inactive amitriptyline 100 mg tablet RxNorm: 830917 1 Tablet(s) PO QHS No St art Date 11/27/2016 Inactive Zithromax Z-Dustin 250 mg tablet RxNorm: 089283 Tablet(s) PO as di rected No Start Date 07/22/2013 Inactive Klor-Con 8 mEq tablet,extended release RxNorm: 107353 1 Tablet( s) PO BID No Start Date 07/28/2012 Inactive scopolamine 1.5 mg 72 hr Transderm Patch RxNorm: 158830 Application TD Q72H for motion sickness No Start Date 05/25/2013 Inactive Klonopin 1 mg tablet RxNorm: 479212 1-2 Tablet(s) PO QHS as nee ded for sleep No Start Date 06/20/2015 Inactive Klor-Con M20 mEq tablet,extended release RxNorm: 550091 2 Tablet(s) PO BID to use with lasix No Start Date 11/11/2013 Inactive Bystolic 5 mg tablet RxNorm: 746375 1 Tablet(s) PO QD No Start Date 1 Inactive Bystolic 10 mg tablet RxNorm: 277944 1 Tablet(s) PO BID No Start Da te 07/06/2015 Inactive Premarin 1.25 mg Tab RxNorm: 642427 Tablet(s) PO 2 -W-, and 1 [id number] No Start Date 05/03/2010 Inactive baclofen 20 mg tablet RxNorm: 575810 1 Tablet(s) PO TID as needed for muscle spasm No Start Date 07/22/2015 Inactive hydrocodone-acetaminophen 7.5 mg-650 mg Tab RxNorm: 796672 1 Tablet(s) PO Q4H as needed for pain No Start Date 03/20/2011 Inactive albuterol sulfate 1.25 mg/3 mL Neb Solution RxNorm: 952492 1 Unit Dose INH Q4H 2boxes No Start Date 09/06/2015 Inactive Butrans 20 mcg/hour Transderm Patch RxNorm: 342322 1 TD WEEKLY apply to skin weekly after removing previous. No Start Date 07/22/2013 Inactive Medrol (Dustin) 4 mg tablets in a dose pack RxNorm: 925451 Tablet(s) PO As Directed No Start Date 07/30/2016 Inactive hydrocodone-acetaminophen 10 mg-325 mg Tab RxNorm: 3125074 1-2 Tablet(s) PO TID as needed for pain No Start Date 03/19/2011 Inactive Klonopin 1 mg tablet RxNorm: 451296 1 Tablet(s) PO QHS No Start Date 02/28/2016 Inactive honey topical RxNorm: topical No Start Date 06/16/2018 Inactive Clonidine 0.2 mg Tab RxNorm: 613544 1 Tablet(s) PO TID No Start Date 01/12/2010 Inactive ketorolac 10 mg tablet RxNorm: 435554 1 Tablet(s) PO Q8H No Start D ate 03/18/2012 Inactive as needed for headache Singulair 10 mg Tab RxNorm: 098399 1 Tablet(s) PO QD No Start Date Inactive Premarin 1.25 mg Tab RxNorm: 180918 1 Tablet(s) PO QD No Start Date 1 Inactive Flonase 50 mcg/Actuation Nasal [facility] RxNorm: 1936233 1 [facility] [place] AL BID No Start Date 03/18/2012 Inactive Terbinafine 250 mg Tab RxNorm: 350197 1 Tablet(s) PO QD No Start Da te 04/03/2010 Inactive Fexofenadine 180 mg Tab RxNorm: 2126317 1 Tablet(s) PO QD No Start Date 09/06/2015 Inactive baclofen 20 mg tablet RxNorm: 820438 1 Tablet(s) PO TID as needed N o Start Date 05/25/2014 Inactive Diovan 160 mg Tab RxNorm: 564270 1 Tablet(s) PO QD No Start Date 09/12 Inactive mupirocin 2 % topical ointment RxNorm: 411959 1 Application TOP QID No Start Date 04/25/2016 Inactive ZOFRAN ODT 4 mg Tab, Rapid Dissolve RxNorm: 848436 1 Tablet(s) PO Q4H No Start Date 03/18/2012 Inactive as needed for nausea and vomiting Alprazolam 0.5 mg Tab RxNorm: 079984 1 Tablet(s) PO BID PRN No Star t Date 01/12/2010 Inactive cyclobenzaprine 10 mg tablet RxNorm: 155593 1 Tablet(s) PO TID as needed for muscle spasm No Start Date 10/08/2017 Inactive Albuterol 0.083% Aerosol Solution RxNorm: 1 Appl ication INH Q4H Use one ampule every 4 hrs with nebulizer as needed for shortness of breath. No Start Date 10/09/2010 Inactive lorazepam 1 mg tablet RxNorm: 044395 1 1/2 Tablet(s) PO QHS No Star t Date 02/02/2016 Inactive Melatonin 3 mg Tab RxNorm: 854624 Tablet(s) PO PRN No Start Date 07/11 Inactive Medrol (Dustin) 4 mg Tabs in a Dose Pack RxNorm: 880818 Tablet(s) PO N o Start Date 11/28/2010 Inactive lorazepam 1 mg tablet RxNorm: 195175 1 Tablet(s) PO QHS as need ed for sleep No Start Date 01/30/2016 Inactive hydrocodone-acetaminophen 10 mg-325 mg Tab RxNorm: 4789317 1-2 Tablet(s) PO QID as needed for severe pain No Start Date 03/24/2012 Inactive celecoxib 200 mg capsule RxNorm: 850775 1 Capsule(s) PO BID No Star t Date 06/26/2019 Inactive amlodipine 5 mg-benazepril 20 mg capsule RxNorm: 859282 1 Capsu le(s) PO QD No Start Date 04/10/2017 Inactive Bystolic 20 mg tablet RxNorm: 083498 1/2 Tablet(s) PO QAM No Start Date 01/23/2016 Inactive Bystolic 20 mg tablet RxNorm: 103347 1 Tablet(s) PO QAM No Start Da te 04/25/2016 Inactive Ambien 10 mg Tab RxNorm: 201661 1 Tablet(s) PO QHS No Start Date 05/11 Inactive Klor-Con 8 mEq Tab RxNorm: 519259 1 Tablet(s) PO QD when takes lasix No Start Date 03/06/2010 Inactive aspirin 81 mg tablet RxNorm: 456384 1 Tablet(s) PO QD No Start Date 0 01/29/2018 Inactive hydrocodone-acetaminophen 10 mg-325 mg Tab RxNorm: 5272285 1-2 T ablet(s) PO QID No Start Date 01/10/2012 Inactive Bystolic 10 mg tablet RxNorm: 348484 1 Tablet(s) PO QAM take one daily in the morning. No Start Date 05/28/2013 Inactive nystatin 100,000 unit/mL Oral Susp RxNorm: 680854 5 Milliliter( s) PO QID No Start Date 03/18/2012 Inactive swish and spit scopolamine 1.5 mg 72 hr Transderm Patch RxNorm: 543248 1 Unit Dose TD Q72H for motion sickness No Start Date 12/23/2013 Inactive Hydrocodone-Acetaminophen 10 mg-750 mg Tab RxNorm: 682574 1 Tablet(s) PO Q4H PRN No Start Date 01/12/2010 Inactive Soma 350 mg tablet RxNorm: 897838 1 Tablet(s) PO TID as needed for spasm No Start Date 01/12/2013 Inactive baclofen 10 mg tablet RxNorm: 575214 1 Tablet(s) PO TID as needed for muscle spasm No Start Date 09/18/2019 Inactive Soma 350 mg Tab RxNorm: 939807 1 Tablet(s) PO TID for spasm No Star t Date 01/31/2012 Inactive Co Q-10 400 mg capsule RxNorm: 590466 1 Capsule(s) PO QD No Start D ate 01/21/2019 Inactive nystatin 100,000 unit/gram topical cream RxNorm: 364240 Applica tion TOP BID No Start Date 03/22/2015 Inactive Exforge 5 mg-160 mg Tab RxNorm: 471820 1 Tablet(s) PO QD No Start D ate 10/09/2010 Inactive Hydrocodone-Acetaminophen 7.5 mg-650 mg Tab RxNorm: 350792 1 Ta blet(s) PO Q4H No Start Date 03/07/2010 Inactive Robaxin-750 750 mg Tab RxNorm: 770130 1-2 Tablet(s) PO TID prn spasm No Start Date 05/21/2011 Inactive amlodipine 5 mg tablet RxNorm: 865379 1 Tablet(s) PO QHS No Start D ate 09/29/2015 Inactive oxycodone-acetaminophen 10 mg-325 mg tablet RxNorm: 8796159 1-2 Tablet(s) PO Q6H No Start Date 06/16/2018 Inactive Triamterene-Hydrochlorothiazide 75 mg-50 mg Tab RxNorm: 3108 18 1 Tablet(s) PO QD No Start Date 02/08/2010 Inactive Alprazolam 0.5 mg Tab RxNorm: 828632 2 Tablet(s) PO QD prn No Start Date 03/07/2010 Inactive Bystolic 20 mg tablet RxNorm: 170204 1 Tablet(s) PO QAM No Start Da te 08/17/2015 Inactive ketorolac 10 mg tablet RxNorm: 071163 1 Tablet(s) PO QID prn he adache No Start Date 07/17/2012 Inactive acyclovir 800 mg Tab RxNorm: 814025 1 Tablet(s) PO BID No Start Date 03/18/2012 Inactive duloxetine 60 mg capsule,delayed release RxNorm: 738499 1 Capsu le(s) PO QD No Start Date 09/29/2015 Inactive Norvasc 5 mg tablet RxNorm: 654915 1 Tablet(s) PO QHS No Start Date 1 10/18/2014 Inactive promethazine 25 mg tablet RxNorm: 017970 1 Tablet(s) PO Q8H use sparingly No Start Date 07/22/2013 Inactive alprazolam 0.5 mg tablet RxNorm: 388295 3 Tablet(s) PO QHS No Start Date 06/06/2015 Inactive Lunesta 3 mg tablet RxNorm: 434094 1 Tablet(s) PO QHS No Start Date 0 09/20/2017 Inactive hydrocodone-acetaminophen 10 mg-325 mg Tab RxNorm: 1973227 1-2 Tablet(s) PO TID as needed for pain No Start Date 12/10/2011 Inactive Coricidin HBP Cough & Cold 4 mg-30 mg Tab RxNorm: 8233235 Tablet (s) PO PRN No Start Date 10/09/2010 Inactive Bactroban 2 % Ointment RxNorm: 253450 Application TOP QID to so res No Start Date 02/22/2012 Inactive Flonase 50 mcg/actuation Nasal [facility] RxNorm: 315499 2 [facility] [place] QHS No Start Date 03/03/2014 Inactive Medication Administered No Medication Administered data Immunizations Vaccine Codes Date Status Tetanus, Diptheria, Pertussis CVX: 115 02/27/2014 Results Observation Observation Code Item Item Code Result Date S [facility] Location COMPREHENSIVE METABOLIC 55851 AST 15 U/L 2019 Unknown COMPREHENSIVE METABOLIC 84637 ALT 13 U/L 2019 Unknown COMPREHENSIVE METABOLIC 92585 BUN 12 mg/dL 2019 Unknown COMPREHENSIVE METABOLIC 09971 ALBUMIN 3.9 g/dL 2019 Unknown COMPREHENSIVE METABOLIC 46698 CHLORIDE 97 mmol/L 2019 Unknown COMPREHENSIVE METABOLIC 21091 Bili Total 0.4 mg/dL 09/29 Unknown COMPREHENSIVE METABOLIC 83844 ALK PHOS 130 U/L 2019 Unknown COMPREHENSIVE METABOLIC 06111 SODIUM 136 mmol/L 09/29 Unknown COMPREHENSIVE METABOLIC 46367 CREATININE 0.92 mg/dL 09/11 Unknown COMPREHENSIVE METABOLIC 85600 CALCIUM 9.1 mg/dL 2019 Unknown COMPREHENSIVE METABOLIC 11994 POTASSIUM 4.4 mmol/L 09/29 Unknown COMPREHENSIVE METABOLIC 94708 Total Protein 6.2 g/dL Unknown COMPREHENSIVE METABOLIC 36568 Glucose 391 mg/dL 2019 Unknown COMPREHENSIVE METABOLIC 43445 Bicarbonate 30 mmol/L 09/11 Unknown COMPREHENSIVE METABOLIC 39473 AGAP 9 mmol/L 2019 Unknown MEAN GLUC 5461574 Calc Mean Gluc 332 mg/dL 09/29/2019 Unkn own COMPLETE BLOOD COUNT 0557927 WBC 7.0 10e9/L 09/29/19 Unknown COMPLETE BLOOD COUNT [id number] RBC 4.69 10e12/L 2019 Unknown COMPLETE BLOOD COUNT [id number] HEMOGLOBIN 14.6 g/dL 09/29/19 Unknown COMPLETE BLOOD COUNT [id number] HEMATOCRIT 45.2 % 09/29/19 Unknown COMPLETE BLOOD COUNT 8497498 MCV 96.4 fL 0 Unknown COMPLETE BLOOD COUNT [id number] MCH 31.1 pg 0 Unknown COMPLETE BLOOD COUNT 1484809 MCHC 32.3 g/dL 0 Unknown COMPLETE BLOOD COUNT [id number] PLATELET COUNT 209 10e9/L Unknown COMPLETE BLOOD COUNT 2359718 Mean Plt Volume 9.8 fL Unknown COMPLETE BLOOD COUNT [id number] Neut Auto 48.1 % 0 Unknown COMPLETE BLOOD COUNT [id number] Lymph Auto 36.5 % 09/29/19 Unknown COMPLETE BLOOD COUNT 9157917 [place] Auto 8.6 % 0 Unknown COMPLETE BLOOD COUNT 3615681 RDW 13.4 % 0 Unknown COMPLETE BLOOD COUNT 1490369 Eos Auto 6.5 % 0 Unknown COMPLETE BLOOD COUNT 7824974 Baso Auto 0.3 % 0 Unknown COMPLETE BLOOD COUNT 9308426 Neutrophil Abs 3.37 10e9/L Unknown COMPLETE BLOOD COUNT [id number] Lymphocyte Abs 2.56 10e9/L Unknown COMPLETE BLOOD COUNT [id number] Monocyte Abs 0.60 10e9/L 09/11 Unknown COMPLETE BLOOD COUNT [id number] Eosinophil Abs 0.46 10e9/L Unknown COMPLETE BLOOD COUNT [id number] Basophil Abs 0.02 10e9/L 09/11 Unknown COMPLETE BLOOD COUNT 3705431 RDW-SD 45.9 fL 0 Unknown LIP[facility] 29239 Cholesterol 248 mg/dL 09/29/2019 Unkno wn LIPID GROUP 51080 Triglyceride 898 mg/dL 09/29/2019 Unkn own LIPID GROUP 46912 HDL CHOLESTEROL 41 mg/dL 09/29/2019 U nknown L[facility] 25452 Chol/HDL Ratio 6.05 ratio 09/29/2019 U nknown L[facility] 07676 NON-HDL Chol 207 mg/dL 09/29/2019 Unkn own LIPID GROUP 09806 LDL Cholesterol N/A Trig >400 020 Unknown GLYCOSYLATED HEMOGLOBIN TEST 05741 Hgb A1c 74183-8 13.2 % 0 09/29/2019 Unknown FREE T4 91525 T4 Free 0.75 ng/dL 09/29/2019 Unknown GFR CALC 2275310 GFR Non Afr Amr >60 mL/min 09/29/2019 Un known GFR CALC 1967393 GFR Afr Amr >60 mL/min 09/29/2019 Unknow n THYROID STIMULATING HORMONE 77910 TSH 4.245 uIU/mL 09/29/2019 Unknown COMPLETE BLOOD COUNT [id number] WBC 10.7 10e9/L 018 Unknown COMPLETE BLOOD COUNT 7804303 RBC 4.59 10e12/L 2017 Unknown COMPLETE BLOOD COUNT 9489911 HEMOGLOBIN 14.8 g/dL 12/11/19 18 Unknown COMPLETE BLOOD COUNT 8604782 HEMATOCRIT 44.9 % 12/11/19 18 Unknown COMPLETE BLOOD COUNT [id number] MCV 97.8 fL 8 Unknown COMPLETE BLOOD COUNT 8669661 MCH 32.2 pg 8 Unknown COMPLETE BLOOD COUNT 7886997 MCHC 33.0 g/dL 8 Unknown COMPLETE BLOOD COUNT [id number] PLATELET COUNT 261 10e9/L 10/2017 Unknown COMPLETE BLOOD COUNT 0898747 Mean Plt Volume 9.5 fL 10/2017 Unknown COMPLETE BLOOD COUNT 1935677 Neut Auto 59.9 % 8 Unknown COMPLETE BLOOD COUNT 2687764 Lymph Auto 27.4 % 12/11/19 18 Unknown COMPLETE BLOOD COUNT 4663157 [place] Auto 8.2 % 8 Unknown COMPLETE BLOOD COUNT 8285921 RDW 13.3 % 8 Unknown COMPLETE BLOOD COUNT 4518130 Eos Auto 4.1 % 8 Unknown COMPLETE BLOOD COUNT 2212730 Baso Auto 0.4 % 8 Unknown COMPLETE BLOOD COUNT 6657941 Neutrophil Abs 6.41 10e9/L Unknown COMPLETE BLOOD COUNT 4198852 Lymphocyte Abs 2.93 10e9/L Unknown COMPLETE BLOOD COUNT 6940538 Monocyte Abs 0.88 10e9/L 10/2017 Unknown COMPLETE BLOOD COUNT [id number] Eosinophil Abs 0.44 10e9/L Unknown COMPLETE BLOOD COUNT [id number] RDW-SD 46.2 fL 8 Unknown COMPLETE BLOOD COUNT 7178024 Basophil Abs 0.04 10e9/L 10/2017 Unknown THYROID STIMULATING HORMONE 43102 TSH 4.015 uIU/mL 12/10/2017 Unknown COMPREHENSIVE METABOLIC 93047 AST 25 U/L 2017 Unknown COMPREHENSIVE METABOLIC 11616 ALT 17 U/L 2017 Unknown COMPREHENSIVE METABOLIC 05772 BUN 19 mg/dL 2017 Unknown COMPREHENSIVE METABOLIC 23817 ALBUMIN 4.0 g/dL 2017 Unknown COMPREHENSIVE METABOLIC 60140 CHLORIDE 91 mmol/L 2017 Unknown COMPREHENSIVE METABOLIC 69171 Bili Total 0.5 mg/dL 12/10 Unknown COMPREHENSIVE METABOLIC 81187 ALK PHOS 75 U/L 2017 Unknown COMPREHENSIVE METABOLIC 13364 SODIUM 136 mmol/L 12/10 Unknown COMPREHENSIVE METABOLIC 62756 CREATININE 1.05 mg/dL 10/2017 Unknown COMPREHENSIVE METABOLIC 99236 CALCIUM 8.9 mg/dL 2017 Unknown COMPREHENSIVE METABOLIC 98038 POTASSIUM 3.4 mmol/L 12/10 Unknown COMPREHENSIVE METABOLIC 19259 Total Protein 6.5 g/dL Unknown COMPREHENSIVE METABOLIC 75886 Glucose 138 mg/dL 2017 Unknown COMPREHENSIVE METABOLIC 57387 Bicarbonate 35 mmol/L 10/2017 Unknown COMPREHENSIVE METABOLIC 00568 AGAP 10 mmol/L 2017 Unknown MEAN GLUC 7817106 Calc Mean Gluc 171 mg/dL 12/10/2017 Unkn own LIPID GROUP 28963 Cholesterol 204 mg/dL 12/10/2017 Unkno wn L[facility] GROUP 28690 Triglyceride 411 mg/dL 12/10/2017 Unkn own L[facility] 05204 HDL CHOLESTEROL 50 mg/dL 12/10/2017 U nknown LIP[facility] GROUP 97913 Chol/HDL Ratio 4.08 ratio 12/10/2017 U nknown L[facility] GROUP 36299 NON-HDL Chol 154 mg/dL 12/10/2017 Unkn own LIP[facility] GROUP 13129 LDL Cholesterol N/A Trig >400 018 Unknown GLYCOSYLATED HEMOGLOBIN TEST 71493 Hgb A1c 05766-6 7.6 % 0 12/10/2017 Unknown FREE T4 22943 T4 Free 1.40 ng/dL 12/10/2017 Unknown GFR CALC 2112014 GFR Non Afr Amr 55 mL/min 12/10/2017 Unk nown GFR CALC 4935577 GFR Afr Amr >60 mL/min 12/10/2017 Unknow n GFR CALC 4251807 GFR Non Afr Amr 48 mL/min 06/28/2017 Unk nown GFR CALC 0928868 GFR Afr Amr 59 mL/min 06/28/2017 Unknown COMPREHENSIVE METABOLIC 96017 AST 32 U/L 2016 Unknown COMPREHENSIVE METABOLIC 07830 ALT 22 U/L 2016 Unknown COMPREHENSIVE METABOLIC 14892 BUN 23 mg/dL 2016 Unknown COMPREHENSIVE METABOLIC 26472 ALBUMIN 4.7 g/dL 2016 Unknown COMPREHENSIVE METABOLIC 34320 CHLORIDE 89 mmol/L 2016 Unknown COMPREHENSIVE METABOLIC 21287 Bili Total 0.5 mg/dL 06/28 Unknown COMPREHENSIVE METABOLIC 30925 ALK PHOS 90 U/L 2016 Unknown COMPREHENSIVE METABOLIC 11816 SODIUM 135 mmol/L 06/28 Unknown COMPREHENSIVE METABOLIC 61069 CREATININE 1.18 mg/dL 06/10 Unknown COMPREHENSIVE METABOLIC 50759 CALCIUM 9.7 mg/dL 2016 Unknown COMPREHENSIVE METABOLIC 54692 POTASSIUM 3.5 mmol/L 06/28 Unknown COMPREHENSIVE METABOLIC 88218 Total Protein 7.7 g/dL Unknown COMPREHENSIVE METABOLIC 13671 Glucose 129 mg/dL 2016 Unknown COMPREHENSIVE METABOLIC 52904 Bicarbonate 34 mmol/L 06/10 Unknown COMPREHENSIVE METABOLIC 42275 AGAP 12 mmol/L 2016 Unknown LIPID GROUP 44713 HDL TEST 64 MG/DL 08/27/2014 Unknown LIPID GROUP 89662 TRIG 222 MG/DL 08/27/2014 Unknown LIPID GROUP 49921 TEST LDL 209 MG/DL 08/27/2014 Unknown LIPID GROUP 25572 CHOL 317 MG/DL 08/27/2014 Unknown LIPID GROUP 83188 RCHOL/HDL 4.95 RATIO 08/27/2014 Unknow n LIPID GROUP 43576 NON-HDL CH 253 MG/DL 08/27/2014 Unknow n GFR CALC 1579482 GFR AA >60 ML/MIN 08/27/2014 Unknown GFR CALC 5925283 GFR NON-AA >60 ML/MIN 08/27/2014 Unknown COMPLETE BLOOD COUNT 3335281 WBC 7.0 10e9/L 08/27/20 14 Unknown COMPLETE BLOOD COUNT 2489376 RBC 4.98 10e12/L 2013 Unknown COMPLETE BLOOD COUNT 7597485 HGB 15.6 g/dL 4 Unknown COMPLETE BLOOD COUNT 3960750 HCT DET 46.5 % 4 Unknown COMPLETE BLOOD COUNT 1838067 MCV 93.4 fL 4 Unknown COMPLETE BLOOD COUNT 0519882 MCH 31.3 pg 4 Unknown COMPLETE BLOOD COUNT 7668646 MCHC 33.5 g/dL 4 Unknown COMPLETE BLOOD COUNT 5757123 PLT 309 10e9/L 08/27/20 14 Unknown COMPLETE BLOOD COUNT 4310457 MPV 9.6 fL 4 Unknown COMPLETE BLOOD COUNT 5851024 CADEN % 57.2 % 4 Unknown COMPLETE BLOOD COUNT 2213855 LY % 33.2 % 4 Unknown COMPLETE BLOOD COUNT 3885689 MON % 7.3 % 4 Unknown COMPLETE BLOOD COUNT 8401470 EOS % 2.0 % 4 Unknown COMPLETE BLOOD COUNT 0381242 BASO % 0.3 % 4 Unknown COMPLETE BLOOD COUNT 8445870 RDW 13.7 % 4 Unknown COMPLETE BLOOD COUNT [id number] ABS CADEN 4.00 10e9/L 014 Unknown COMPLETE BLOOD COUNT 4517449 ABS LYMPH 2.32 10e9/L 014 Unknown COMPLETE BLOOD COUNT 8519540 ABS MONO 0.51 10e9/L 014 Unknown COMPLETE BLOOD COUNT 2322655 ABS EOS 0.14 10e9/L 014 Unknown COMPLETE BLOOD COUNT [id number] ABS BASO 0.02 10e9/L 014 Unknown COMPLETE BLOOD COUNT 0402941 RDW-SD 45.1 fL 4 Unknown COMPREHENSIVE METABOLIC 44312 AST 13 U/L 2013 Unknown COMPREHENSIVE METABOLIC 50539 ALT 11 IU/L 2013 Unknown COMPREHENSIVE METABOLIC 95883 BUN 23 MG/DL 2013 Unknown COMPREHENSIVE METABOLIC 10399 ALBUMIN 4.4 GM/DL 2013 Unknown COMPREHENSIVE METABOLIC 12726 CHLORIDE 99 MMOL/L 2013 Unknown COMPREHENSIVE METABOLIC 36318 BILI TOT 0.5 MG/DL 2013 Unknown COMPREHENSIVE METABOLIC 73003 ALK PHOS 56 U/L 2013 Unknown COMPREHENSIVE METABOLIC 78590 SODIUM 138 MMOL/L 08/27 Unknown COMPREHENSIVE METABOLIC 34545 CREATININE 0.95 MG/DL 08/10 Unknown COMPREHENSIVE METABOLIC 64722 CALCIUM 9.8 MG/DL 2013 Unknown COMPREHENSIVE METABOLIC 39066 POTASSIUM 3.5 MMOL/L 08/27 Unknown COMPREHENSIVE METABOLIC 20154 PROT TOT 6.8 GM/DL 2013 Unknown COMPREHENSIVE METABOLIC 60754 Glucose 90 MG/DL 2013 Unknown COMPREHENSIVE METABOLIC 44267 BICARB 34 MMOL/L 2013 Unknown COMPREHENSIVE METABOLIC 08515 ANION GAP 5 MEQ/L 2013 Unknown LIPASE 54531 LIPASE 11 IU/L 07/21/2014 Unknown AMYLASE 22053 AMYLASE 39 IU/L 07/21/2014 Unknown HEMOGLOBIN A1C (GLYCOSYLATED) 6043854 A1C HPLC 37026-5 6.2 % 03/05/2013 Unknown THYROID STIMULATING HORMONE 96495 TSH 6.986 uIU/ML 03/05/2013 Unknown COMPLETE BLOOD COUNT 4728202 WBC 12.7 10e9/L 013 Unknown COMPLETE BLOOD COUNT [id number] RBC 4.53 10e12/L 2012 Unknown COMPLETE BLOOD COUNT 0674204 HGB 14.7 g/dL 3 Unknown COMPLETE BLOOD COUNT 2735986 HCT DET 43.1 % 3 Unknown COMPLETE BLOOD COUNT 7370561 MCV 95.1 fL 3 Unknown COMPLETE BLOOD COUNT 0653791 MCH 32.5 pg 3 Unknown COMPLETE BLOOD COUNT 3257748 MCHC 34.1 g/dL 3 Unknown COMPLETE BLOOD COUNT 7881432 PLT 346 10e9/L 03/05/20 13 Unknown COMPLETE BLOOD COUNT 9859476 MPV 9.5 fL 3 Unknown COMPLETE BLOOD COUNT 8896576 CADEN % 67.6 % 3 Unknown COMPLETE BLOOD COUNT 9337168 LY % 22.1 % 3 Unknown COMPLETE BLOOD COUNT 3999556 MON % 6.6 % 3 Unknown COMPLETE BLOOD COUNT 1074052 EOS % 3.3 % 3 Unknown COMPLETE BLOOD COUNT 9819586 BASO % 0.4 % 3 Unknown COMPLETE BLOOD COUNT 3212921 RDW 14.0 % 3 Unknown COMPLETE BLOOD COUNT [id number] ABS CADEN 8.59 10e9/L 013 Unknown COMPLETE BLOOD COUNT 3891636 ABS LYMPH 2.81 10e9/L 013 Unknown COMPLETE BLOOD COUNT [id number] ABS MONO 0.84 10e9/L 013 Unknown COMPLETE BLOOD COUNT 4372803 ABS EOS 0.42 10e9/L 013 Unknown COMPLETE BLOOD COUNT 9766584 ABS BASO 0.05 10e9/L 013 Unknown COMPLETE BLOOD COUNT 4744779 RDW-SD 46.0 fL 3 Unknown FREE T4 61493 FREE T4 1.14 NG/DL 03/05/2013 Unknown COMPREHENSIVE METABOLIC 47836 AST 17 U/L 2012 Unknown COMPREHENSIVE METABOLIC 67837 ALT 12 IU/L 2012 Unknown COMPREHENSIVE METABOLIC 64775 BUN 24 MG/DL 2012 Unknown COMPREHENSIVE METABOLIC 31483 ALBUMIN 4.2 GM/DL 2012 Unknown COMPREHENSIVE METABOLIC 64831 CHLORIDE 93 MMOL/L 2012 Unknown COMPREHENSIVE METABOLIC 71133 BILI TOT 0.5 MG/DL 2012 Unknown COMPREHENSIVE METABOLIC 66991 ALK PHOS 75 U/L 2012 Unknown COMPREHENSIVE METABOLIC 87410 SODIUM 141 MMOL/L 03/05 Unknown COMPREHENSIVE METABOLIC 54024 CREATININE 1.36 MG/DL 02/09 Unknown COMPREHENSIVE METABOLIC 75470 CALCIUM 9.2 MG/DL 2012 Unknown COMPREHENSIVE METABOLIC 98658 POTASSIUM 3.1 MMOL/L 03/05 Unknown COMPREHENSIVE METABOLIC 61755 PROT TOT 6.9 GM/DL 2012 Unknown COMPREHENSIVE METABOLIC 98494 Glucose 123 MG/DL 2012 Unknown COMPREHENSIVE METABOLIC 92768 BICARB 36 MMOL/L 2012 Unknown COMPREHENSIVE METABOLIC 92252 ANION GAP 12 MEQ/L 2012 Unknown GFR CALC 8656797 GFR AA 51.0L ML/MIN 03/05/2013 Unknow n GFR CALC 4685711 GFR NON-AA 42.0L ML/MIN 03/05/2013 Unkno wn COMPREHENSIVE METABOLIC 22971 AST 14 U/L 2012 Unknown COMPREHENSIVE METABOLIC 40536 ALT 11 IU/L 2012 Unknown COMPREHENSIVE METABOLIC 97525 BUN 16 MG/DL 2012 Unknown COMPREHENSIVE METABOLIC 20810 ALBUMIN 4.2 GM/DL 2012 Unknown COMPREHENSIVE METABOLIC 70301 CHLORIDE 98 MMOL/L 2012 Unknown COMPREHENSIVE METABOLIC 46376 BILI TOT 0.4 MG/DL 2012 Unknown COMPREHENSIVE METABOLIC 15854 ALK PHOS 77 U/L 2012 Unknown COMPREHENSIVE METABOLIC 10363 SODIUM 139 MMOL/L 09/25 Unknown COMPREHENSIVE METABOLIC 44200 CREATININE 0.86 MG/DL 09/10 Unknown COMPREHENSIVE METABOLIC 77748 CALCIUM 9.5 MG/DL 2012 Unknown COMPREHENSIVE METABOLIC 26684 POTASSIUM 3.8 MMOL/L 09/25 Unknown COMPREHENSIVE METABOLIC 42344 PROT TOT 6.8 GM/DL 2012 Unknown COMPREHENSIVE METABOLIC 72126 Glucose 91 MG/DL 2012 Unknown COMPREHENSIVE METABOLIC 89789 BICARB 32 MMOL/L 2012 Unknown COMPREHENSIVE METABOLIC 53689 ANION GAP 9 MEQ/L 2012 Unknown FREE T4 76831 FREE T4 0.98 NG/DL 09/25/2012 Unknown THYROID STIMULATING HORMONE 25916 TSH 1.736 uIU/ML 09/25/2012 Unknown C-REACTIVE PROTEIN (CRP) QUANT 08943 CRP 2.3 MG/DL 09/25/2012 Unknown COMPLETE BLOOD COUNT 2277809 WBC 11.9 10e9/L 013 Unknown COMPLETE BLOOD COUNT 1318576 RBC 4.87 10e12/L 2012 Unknown COMPLETE BLOOD COUNT 6396814 HGB 15.1 g/dL 3 Unknown COMPLETE BLOOD COUNT 8252096 HCT DET 44.8 % 3 Unknown COMPLETE BLOOD COUNT 8845126 MCV 92.0 fL 3 Unknown COMPLETE BLOOD COUNT 4562378 MCH 31.0 pg 3 Unknown COMPLETE BLOOD COUNT 4916550 MCHC 33.7 g/dL 3 Unknown COMPLETE BLOOD COUNT 6860027 PLT 343 10e9/L 09/25/19 13 Unknown COMPLETE BLOOD COUNT 2588904 MPV 9.0 fL 3 Unknown COMPLETE BLOOD COUNT 6499515 CADEN % 68.2 % 3 Unknown COMPLETE BLOOD COUNT 8730866 LY % 22.4 % 3 Unknown COMPLETE BLOOD COUNT 6610744 MON % 6.4 % 3 Unknown COMPLETE BLOOD COUNT 2935359 EOS % 2.7 % 3 Unknown COMPLETE BLOOD COUNT 1439822 BASO % 0.3 % 3 Unknown COMPLETE BLOOD COUNT 7701039 RDW 13.8 % 3 Unknown COMPLETE BLOOD COUNT 8021100 ABS CADEN 8.12 10e9/L 013 Unknown COMPLETE BLOOD COUNT 6681750 ABS LYMPH 2.67 10e9/L 013 Unknown COMPLETE BLOOD COUNT 4259445 ABS MONO 0.76 10e9/L 013 Unknown COMPLETE BLOOD COUNT 4037821 ABS EOS 0.32 10e9/L 013 Unknown COMPLETE BLOOD COUNT [id number] ABS BASO 0.04 10e9/L 013 Unknown COMPLETE BLOOD COUNT 8599487 RDW-SD 45.6 fL 3 Unknown GFR CALC 2018276 GFR AA >60 ML/MIN 09/25/2012 Unknown GFR CALC 6127484 GFR NON-AA >60 ML/MIN 09/25/2012 Unknown ERYTHROCYTE SEDIMENTATION RATE 33253 ESR 19 MM/HR 05/06/2012 Unknown VITAMIN B 12 FOLIC ACID 75683|52371 VIT B 12 922 PG/ML 04/11 Unknown VITAMIN B 12 FOLIC ACID 07902|08327 FOLIC ACID 13.6 NG/ML Unknown URIC ACID 86758 URIC ACID 7.8 MG/DL 05/06/2012 Unknown COMPLETE BLOOD COUNT 83959 WBC 11.9 10e9/L 012 Unknown COMPLETE BLOOD COUNT 93239 RBC 5.30 10e12/L 2011 Unknown COMPLETE BLOOD COUNT 60098 HGB 16.6 g/dL 2 Unknown COMPLETE BLOOD COUNT 33232 HCT DET 47.2 % 2 Unknown COMPLETE BLOOD COUNT 93979 MCV 89.1 fL 2 Unknown COMPLETE BLOOD COUNT 20226 MCH 31.3 pg 2 Unknown COMPLETE BLOOD COUNT 28183 MCHC 35.2 g/dL 2 Unknown COMPLETE BLOOD COUNT 84990 PLT 362 10e9/L 05/06/20 12 Unknown COMPLETE BLOOD COUNT 11484 MPV 9.4 fL 2 Unknown COMPLETE BLOOD COUNT 24395 CADEN % 68.2 % 2 Unknown COMPLETE BLOOD COUNT 46548 LY % 22.0 % 2 Unknown COMPLETE BLOOD COUNT 57638 MON % 6.9 % 2 Unknown COMPLETE BLOOD COUNT 63513 EOS % 2.6 % 2 Unknown COMPLETE BLOOD COUNT 08344 BASO % 0.3 % 2 Unknown COMPLETE BLOOD COUNT 08818 RDW 12.8 % 2 Unknown COMPLETE BLOOD COUNT 78266 ABS CADEN 8.12 10e9/L 012 Unknown COMPLETE BLOOD COUNT 00191 ABS LYMPH 2.62 10e9/L 012 Unknown COMPLETE BLOOD COUNT 24538 ABS MONO 0.82 10e9/L 012 Unknown COMPLETE BLOOD COUNT 46708 ABS EOS 0.31 10e9/L 012 Unknown COMPLETE BLOOD COUNT 39099 ABS BASO 0.04 10e9/L 012 Unknown COMPLETE BLOOD COUNT 94123 RDW-SD 41.5 fL 2 Unknown GFR CALC 6233270 GFR AA >60 ML/MIN 05/06/2012 Unknown GFR CALC 7366788 GFR NON-AA 58.0L ML/MIN 05/06/2012 Unkno wn FREE T4 15483 FREE T4 1.15 NG/DL 05/06/2012 Unknown THYROID STIMULATING HORMONE 36290 TSH 1.568 uIU/ML 05/06/2012 Unknown COMPREHENSIVE METABOLIC 85298 AST 20 U/L 2011 Unknown COMPREHENSIVE METABOLIC 02017 ALT 12 IU/L 2011 Unknown COMPREHENSIVE METABOLIC 55990 BUN 20 MG/DL 2011 Unknown COMPREHENSIVE METABOLIC 31697 ALBUMIN 4.5 GM/DL 2011 Unknown COMPREHENSIVE METABOLIC 84673 CHLORIDE 91 MMOL/L 2011 Unknown COMPREHENSIVE METABOLIC 16857 BILI TOT 0.4 MG/DL 2011 Unknown COMPREHENSIVE METABOLIC 41697 ALK PHOS 73 U/L 2011 Unknown COMPREHENSIVE METABOLIC 93660 SODIUM 139 MMOL/L 05/06 Unknown COMPREHENSIVE METABOLIC 62915 CREATININE 1.02 MG/DL 04/11 Unknown COMPREHENSIVE METABOLIC 21204 CALCIUM 9.7 MG/DL 2011 Unknown COMPREHENSIVE METABOLIC 01602 POTASSIUM 3.1 MMOL/L 05/06 Unknown COMPREHENSIVE METABOLIC 58161 PROT TOT 7.3 GM/DL 2011 Unknown COMPREHENSIVE METABOLIC 73700 Glucose 118 MG/DL 2011 Unknown COMPREHENSIVE METABOLIC 40217 BICARB 33 MMOL/L 2011 Unknown COMPREHENSIVE METABOLIC 61034 ANION GAP 15 MEQ/L 2011 Unknown Procedures Procedure Codes Date ROUTINE VENIPUNCTURE CPT-4: 91851 09/29/2019 URINALYSIS NONAUTO W/O SCOPE CPT-4: 37500 09/29/2019 COMPREHEN METABOLIC PANEL CPT-4: 02391 09/29/2019 LIPID PANEL CPT-4: 29994 09/29/2019 A1C HPLC CPT-4: 90410 09/29/2019 ASSAY OF FREE THYROXINE CPT-4: 94741 09/29/2019 ASSAY THYROID STIM HORMONE CPT-4: 42399 09/29/2019 COMPLETE CBC W/AUTO DIFF WBC CPT-4: 93707 09/29/2019 URINALYSIS NONAUTO W/O SCOPE CPT-4: 82704 09/30/2018 MICROALBUMIN QUANTITATIVE CPT-4: 88364 09/30/2018 CEFTRIAXONE SODIUM INJECTION CPT-4: J0696 06/19/2018 THER/PROPH/DIAG INJ SC/IM CPT-4: 08775 06/19/2018 CEFTRIAXONE SODIUM INJECTION CPT-4: J0696 06/17/2018 THER/PROPH/DIAG INJ SC/IM CPT-4: 88057 06/17/2018 THER/PROPH/DIAG INJ SC/IM CPT-4: 98224 05/16/2018 KETOROLAC TROMETHAMINE INJ CPT-4: J1885 05/16/2018 ONDANSETRON HCL INJECTION CPT-4: J2405 05/16/2018 THER/PROPH/DIAG INJ SC/IM CPT-4: 47495 05/16/2018 ROUTINE VENIPUNCTURE CPT-4: 19948 03/20/2018 COMPREHEN METABOLIC PANEL CPT-4: 42339 03/20/2018 DEXAMETHASONE SODIUM PHOS CPT-4: J1100 02/11/2018 THER/PROPH/DIAG INJ SC/IM CPT-4: 43535 02/11/2018 TRIAMCINOLONE ACET INJ NOS CPT-4: J3301 02/11/2018 CEFTRIAXONE SODIUM INJECTION CPT-4: J0696 02/01/2018 THER/PROPH/DIAG INJ SC/IM CPT-4: 41824 02/01/2018 CEFTRIAXONE SODIUM INJECTION CPT-4: J0696 01/30/2018 THER/PROPH/DIAG INJ SC/IM CPT-4: 40939 01/30/2018 ROUTINE VENIPUNCTURE CPT-4: 69729 12/10/2017 ASSAY OF FREE THYROXINE CPT-4: 86165 12/10/2017 ASSAY THYROID STIM HORMONE CPT-4: 44693 12/10/2017 COMPREHEN METABOLIC PANEL CPT-4: 45338 12/10/2017 COMPLETE CBC W/AUTO DIFF WBC CPT-4: 01345 12/10/2017 LIPID PANEL CPT-4: 89749 12/10/2017 A1C HPLC CPT-4: 11098 12/10/2017 CEFTRIAXONE SODIUM INJECTION CPT-4: J0696 12/10/2017 THER/PROPH/DIAG INJ SC/IM CPT-4: 38516 12/10/2017 CEFTRIAXONE SODIUM INJECTION CPT-4: J0696 12/07/2017 THER/PROPH/DIAG INJ SC/IM CPT-4: 73985 12/07/2017 DEXAMETHASONE SODIUM PHOS CPT-4: J1100 12/07/2017 THER/PROPH/DIAG INJ SC/IM CPT-4: 90636 12/07/2017 CEFTRIAXONE SODIUM INJECTION CPT-4: J0696 10/08/2017 THER/PROPH/DIAG INJ SC/IM CPT-4: 88957 10/08/2017 CEFTRIAXONE SODIUM INJECTION CPT-4: J0696 09/21/2017 THER/PROPH/DIAG INJ SC/IM CPT-4: 82627 09/21/2017 CEFTRIAXONE SODIUM INJECTION CPT-4: J0696 09/20/2017 THER/PROPH/DIAG INJ SC/IM CPT-4: 14959 09/20/2017 REMOVAL OF NAIL PLATE CPT-4: 26864 08/29/2017 THER/PROPH/DIAG INJ SC/IM CPT-4: 50906 08/29/2017 TRIAMCINOLONE ACET INJ NOS CPT-4: J3301 08/29/2017 CEFTRIAXONE SODIUM INJECTION CPT-4: J0696 08/29/2017 THER/PROPH/DIAG INJ SC/IM CPT-4: 11670 08/29/2017 DESTRUCT PREMALG LESION (Cryosurgery) CPT-4: 63512 ROUTINE VENIPUNCTURE CPT-4: 97808 06/27/2017 ASSAY OF FREE THYROXINE CPT-4: 09553 06/27/2017 ASSAY THYROID STIM HORMONE CPT-4: 56583 06/27/2017 COMPREHEN METABOLIC PANEL CPT-4: 01402 06/27/2017 COMPLETE CBC W/AUTO DIFF WBC CPT-4: 96069 06/27/2017 EXC TR-EXT B9+REECE 0.5 CM< CPT-4: 81087 01/24/2017 THER/PROPH/DIAG INJ SC/IM CPT-4: 94196 08/02/2016 DEXAMETHASONE SODIUM PHOS CPT-4: J1100 08/02/2016 DESTRUCT PREMALG LESION (Cryosurgery) CPT-4: 84258 EXC TR-EXT B9+REECE 0.5 CM< CPT-4: 04614 08/01/2016 AEROBIC WOUND CULTURE & STN CPT-4: 52991 07/06/2016 CEFTRIAXONE SODIUM INJECTION CPT-4: J0696 05/25/2016 THER/PROPH/DIAG INJ SC/IM CPT-4: 82039 05/25/2016 THER/PROPH/DIAG INJ SC/IM CPT-4: 47482 04/26/2016 DEXAMETHASONE SODIUM PHOS CPT-4: J1100 04/26/2016 CEFTRIAXONE SODIUM INJECTION CPT-4: J0696 04/26/2016 THER/PROPH/DIAG INJ SC/IM CPT-4: 55592 04/26/2016 THER/PROPH/DIAG INJ SC/IM CPT-4: 69214 02/09/2016 TRIAMCINOLONE ACET INJ NOS CPT-4: J3301 02/09/2016 URINALYSIS NONAUTO W/O SCOPE CPT-4: 17804 01/24/2016 URINE CULTURE/ COLONY COUNT CPT-4: 11937 01/24/2016 THER/PROPH/DIAG INJ SC/IM CPT-4: 27183 12/08/2015 TRIAMCINOLONE ACET INJ NOS CPT-4: J3301 12/08/2015 THER/PROPH/DIAG INJ SC/IM CPT-4: 03597 10/07/2015 TRIAMCINOLONE ACET INJ NOS CPT-4: J3301 10/07/2015 DESTRUCT PREMALG LESION (Cryosurgery) CPT-4: 80557 THER/PROPH/DIAG INJ SC/IM CPT-4: 24666 03/16/2015 METHYLPREDNISOLONE 40 MG INJ CPT-4: J1030 03/16/2015 DESTRUCT PREMALG LESION (Cryosurgery) CPT-4: 45026 THER/PROPH/DIAG INJ SC/IM CPT-4: 00425 09/11/2014 METHYLPREDNISOLONE 40 MG INJ CPT-4: J1030 09/11/2014 TRIAMCINOLONE ACET INJ NOS CPT-4: J3301 09/11/2014 CEFTRIAXONE SODIUM INJECTION CPT-4: J0696 09/11/2014 THER/PROPH/DIAG INJ SC/IM CPT-4: 81520 09/11/2014 ROUTINE VENIPUNCTURE CPT-4: 51159 08/27/2014 COMPREHEN METABOLIC PANEL CPT-4: 04651 08/27/2014 COMPLETE CBC W/AUTO DIFF WBC CPT-4: 80044 08/27/2014 LIPID PANEL CPT-4: 91492 08/27/2014 ROUTINE VENIPUNCTURE CPT-4: 79321 07/21/2014 ASSAY OF AMYLASE CPT-4: 94898 07/21/2014 ASSAY OF LIPASE CPT-4: 77051 07/21/2014 THER/PROPH/DIAG INJ SC/IM CPT-4: 17315 07/15/2014 TRIAMCINOLONE ACET INJ NOS CPT-4: J3301 07/15/2014 ROUTINE VENIPUNCTURE CPT-4: 34016 05/14/2014 ASSAY OF FREE THYROXINE CPT-4: 56521 05/14/2014 ASSAY THYROID STIM HORMONE CPT-4: 49867 05/14/2014 COMPREHEN METABOLIC PANEL CPT-4: 59501 05/14/2014 COMPLETE CBC W/AUTO DIFF WBC CPT-4: 20032 05/14/2014 LIPID PANEL CPT-4: 08756 05/14/2014 CEFTRIAXONE SODIUM INJECTION CPT-4: J0696 04/21/2014 THER/PROPH/DIAG INJ SC/IM CPT-4: 45179 04/21/2014 THER/PROPH/DIAG INJ SC/IM CPT-4: 57210 04/21/2014 TRIAMCINOLONE ACET INJ NOS CPT-4: J3301 04/21/2014 THER/PROPH/DIAG INJ SC/IM CPT-4: 53402 03/04/2014 METHYLPREDNISOLONE 40 MG INJ CPT-4: J1030 03/04/2014 TRIAMCINOLONE ACET INJ NOS CPT-4: J3301 03/04/2014 CEFTRIAXONE SODIUM INJECTION CPT-4: J0696 03/04/2014 THER/PROPH/DIAG INJ SC/IM CPT-4: 41888 03/04/2014 TDAP VACCINE 7 YRS/> IM CPT-4: 14293 02/27/2014 IMMUNIZATION ADMIN CPT-4: 10403 02/27/2014 DESTRUCT PREMALG LESION (Cryosurgery) CPT-4: 79870 DESTRUCT PREMALG LES 2-14 CPT-4: 60436 01/13/2014 THER/PROPH/DIAG INJ SC/IM CPT-4: 20978 10/21/2013 METHYLPREDNISOLONE 40 MG INJ CPT-4: J1030 10/21/2013 TRIAMCINOLONE ACET INJ NOS CPT-4: J3301 10/21/2013 CEFTRIAXONE SODIUM INJECTION CPT-4: J0696 08/27/2013 THER/PROPH/DIAG INJ SC/IM CPT-4: 12419 08/27/2013 THER/PROPH/DIAG INJ SC/IM CPT-4: 76626 08/27/2013 METHYLPREDNISOLONE 40 MG INJ CPT-4: J1030 08/27/2013 TRIAMCINOLONE ACET INJ NOS CPT-4: J3301 08/27/2013 THER/PROPH/DIAG INJ SC/IM CPT-4: 83838 06/23/2013 METHYLPREDNISOLONE 40 MG INJ CPT-4: J1030 06/23/2013 TRIAMCINOLONE ACET INJ NOS CPT-4: J3301 06/23/2013 THER/PROPH/DIAG INJ SC/IM CPT-4: 29289 05/26/2013 METHYLPREDNISOLONE 40 MG INJ CPT-4: J1030 05/26/2013 TRIAMCINOLONE ACET INJ NOS CPT-4: J3301 05/26/2013 ROUTINE VENIPUNCTURE CPT-4: 71695 03/05/2013 ASSAY OF FREE THYROXINE CPT-4: 63380 03/05/2013 ASSAY THYROID STIM HORMONE CPT-4: 99614 03/05/2013 COMPREHEN METABOLIC PANEL CPT-4: 49169 03/05/2013 COMPLETE CBC W/AUTO DIFF WBC CPT-4: 75804 03/05/2013 A1C GLYCOSYLATED HEMOGLOBIN TEST CPT-4: 25900 013 DRAIN/INJECT JOINT/BURSA CPT-4: 21162 12/04/2012 METHYLPREDNISOLONE 40 MG INJ CPT-4: J1030 12/04/2012 TRIAMCINOLONE ACET INJ NOS CPT-4: J3301 12/04/2012 CEFTRIAXONE SODIUM INJECTION CPT-4: J0696 11/21/2012 THER/PROPH/DIAG INJ SC/IM CPT-4: 47633 11/21/2012 THER/PROPH/DIAG INJ SC/IM CPT-4: 63899 10/14/2012 METHYLPREDNISOLONE 40 MG INJ CPT-4: J1030 10/14/2012 TRIAMCINOLONE ACET INJ NOS CPT-4: J3301 10/14/2012 URINALYSIS NONAUTO W/O SCOPE CPT-4: 95351 09/27/2012 ROUTINE VENIPUNCTURE CPT-4: 09510 09/25/2012 ASSAY OF FREE THYROXINE CPT-4: 35925 09/25/2012 ASSAY THYROID STIM HORMONE CPT-4: 09319 09/25/2012 COMPREHEN METABOLIC PANEL CPT-4: 82032 09/25/2012 COMPLETE CBC W/AUTO DIFF WBC CPT-4: 41388 09/25/2012 C-REACTIVE PROTEIN CPT-4: 85771 09/25/2012 THER/PROPH/DIAG INJ SC/IM CPT-4: 42292 08/29/2012 METHYLPREDNISOLONE 40 MG INJ CPT-4: J1030 08/29/2012 TRIAMCINOLONE ACET INJ NOS CPT-4: J3301 08/29/2012 DESTRUCT PREMALG LESION (Cryosurgery) CPT-4: 94508 THER/PROPH/DIAG INJ SC/IM CPT-4: 69878 05/06/2012 METHYLPREDNISOLONE 40 MG INJ CPT-4: J1030 05/06/2012 TRIAMCINOLONE ACET INJ NOS CPT-4: J3301 05/06/2012 VITAMIN B 12 FOLIC ACID CPT-4: 52543|29266 05/06/2012 RBC SED RATE AUTOMATED CPT-4: 32431 05/06/2012 ROUTINE VENIPUNCTURE CPT-4: 91374 05/06/2012 ASSAY OF FREE THYROXINE CPT-4: 38458 05/06/2012 ASSAY THYROID STIM HORMONE CPT-4: 80190 05/06/2012 COMPREHEN METABOLIC PANEL CPT-4: 74755 05/06/2012 COMPLETE CBC W/AUTO DIFF WBC CPT-4: 20731 05/06/2012 ASSAY OF BLOOD/URIC ACID CPT-4: 33216 05/06/2012 THER/PROPH/DIAG INJ SC/IM CPT-4: 94108 03/19/2012 KETOROLAC TROMETHAMINE INJ CPT-4: J1885 03/19/2012 KETOROLAC TROMETHAMINE INJ CPT-4: J1885 01/30/2012 THER/PROPH/DIAG INJ SC/IM CPT-4: 41701 01/30/2012 PROMETHAZINE HCL INJECTION CPT-4: J2550 01/30/2012 THER/PROPH/DIAG INJ SC/IM CPT-4: 47910 01/24/2012 METHYLPREDNISOLONE 40 MG INJ CPT-4: J1030 01/24/2012 TRIAMCINOLONE ACET INJ NOS CPT-4: J3301 01/24/2012 THER/PROPH/DIAG INJ SC/IM CPT-4: 22671 09/13/2011 KETOROLAC TROMETHAMINE INJ CPT-4: J1885 09/13/2011 THER/PROPH/DIAG INJ SC/IM CPT-4: 00330 09/13/2011 PROMETHAZINE HCL INJECTION CPT-4: J2550 09/13/2011 CEFTRIAXONE SODIUM INJECTION CPT-4: J0696 07/20/2011 THER/PROPH/DIAG INJ SC/IM CPT-4: 98871 07/20/2011 THER/PROPH/DIAG INJ SC/IM CPT-4: 70411 07/20/2011 METHYLPREDNISOLONE INJECTION CPT-4: J2930 07/20/2011 URINALYSIS NONAUTO W/O SCOPE CPT-4: 51313 05/09/2011 CEFTRIAXONE SODIUM INJECTION CPT-4: J0696 05/09/2011 THER/PROPH/DIAG INJ SC/IM CPT-4: 51076 05/09/2011 THER/PROPH/DIAG INJ SC/IM CPT-4: 07926 05/09/2011 PROMETHAZINE HCL INJECTION CPT-4: J2550 05/09/2011 HYDRATION IV INFUSION INIT CPT-4: 41842 05/09/2011 DESTRUCT PREMALG LESION (Cryosurgery) CPT-4: 01429 DESTRUCT PREMALG LES 2-14 CPT-4: 82522 07/19/2010 REMOVAL OF SKIN TAGS <W/15 CPT-4: 71888 05/30/2010 THER/PROPH/DIAG INJ SC/IM CPT-4: 56478 04/05/2010 CEFTRIAXONE SODIUM INJECTION CPT-4: J0696 04/05/2010 TRIAMCINOLONE ACET INJ NOS CPT-4: J3301 04/05/2010 METHYLPREDNISOLONE 40 MG INJ CPT-4: J1030 04/05/2010 THER/PROPH/DIAG INJ SC/IM CPT-4: 39983 04/05/2010 TRIAMCINOLONE ACET INJ NOS CPT-4: J3301 03/09/2010 METHYLPREDNISOLONE 40 MG INJ CPT-4: J1030 03/09/2010 THER/PROPH/DIAG INJ SC/IM CPT-4: 00348 03/09/2010 THER/PROPH/DIAG INJ SC/IM CPT-4: 71908 03/09/2010 CEFTRIAXONE SODIUM INJECTION CPT-4: J0696 03/09/2010 [...] 1: 132/80 Code: 8480-6 BMI: 35.8 Code: 97560-9 Heart Rate 1: 88 bpm Height: 5'4" Respiratory Rate: 20 bpm SpO2: 95% Tempera ture: 36.9 (C) / 98.5 (F) Weight: 210 lbs 05/28/2019 Blood Pressure 1: 126/82 Code: 8480-6 BMI: 35.0 Code: 25563-6 Heart Rate 1: 88 bpm Height: 5'4" [...] 1: 128/90 Code: 8480-6 BMI: 37.2 Code: 15082-5 Heart Rate 1: 84 bpm Height: 5'4" Respiratory Rate: 20 bpm SpO2: 95% Tempera ture: 36.6 (C) / 97.8 (F) Weight: 217 lbs 08/27/2018 Blood Pressure 1: 128/88 Code: 8480-6 BMI: 38.3 Code: 13375-7 Heart Rate 1: 84 bpm Height: 5'4" [...] 1: 119/72 Code: 8480-6 BMI: 37.4 Code: 10514-1 Heart Rate 1: 82 bpm Height: 5'4" Respiratory Rate: 12 bpm SpO2: 94% Tempera ture: 35.2 (C) / 95.4 (F) Weight: 218 lbs 12/18/2017 Blood Pressure 1: 128/86 Code: 8480-6 BMI: 37.8 Code: 60942-0 Heart Rate 1: 84 bpm Height: 5'4" [...] 1: 128/82 Code: 8480-6 BMI: 35.5 Code: 47673-6 Heart Rate 1: 84 bpm Height: 5'4" [...] 1: 128/82 Code: 8480-6 BMI: 30.2 Code: 60476-0 Heart Rate 1: 80 bpm Height: 5'4" [...] 1: 128/86 Code: 8480-6 BMI: 32.8 Code: 64080-3 Heart Rate 1: 66 bpm Height: 5'4" Respiratory Rate: 18 bpm Temperature: 36 .3 (C) / 97.3 (F) Weight: 191 lbs 06/23/2013 Blood Pressure 1: 132/94 Code: 8480-6 BMI: 34.0 Code: 75816-9 Heart Rate 1: 84 bpm Height: 5'4" Respiratory Rate: 20 bpm Temperature: 36 .8 (C) / 98.2 (F) Weight: 198 lbs 05/26/2013 Blood Pressure 1: 114/80 Code: 8480-6 BMI: 35.0 Code: 26336-9 Heart Rate 1: 80 bpm Height: 5'4" Respiratory Rate: 20 bpm Temperature: 36 .4 (C) / 97.6 (F) Weight: 204 lbs 04/16/2013 Blood Pressure 1: 114/82 Code: 8480-6 BMI: 36.7 Code: 86662-1 Heart Rate 1: 84 bpm Height: 5'4" Respiratory Rate: 20 bpm Temperature: 36 .7 (C) / 98.0 (F) Weight: 214 lbs 03/05/2013 Blood Pressure 1: 136/90 Code: 8480-6 BMI: 37.1 Code: 16877-3 Heart Rate 1: 84 bpm Height: 5'4" [...] 1: 168/114 Code: 8480-6 BMI: 36.2 Code: 83696-7 Heart Rate 1: 104 bpm Height: 5'4" Respiratory Rate: 20 bpm Temperature: 36 .8 (C) / 98.2 (F) Weight: 211 lbs 11/22/2012 Blood Pressure 1: 128/90 Code: 8480-6 Heart Rate 1: 88 bpm Respiratory Rate: 20 bpm SpO2: 96% Temperature: 36.8 (C) / 98.2 (F) 11/21/2012 Blood Pressure 1: 146/100 Code: 8480-6 BMI: 35.7 Code: 93818-5 Heart Rate 1: 96 bpm Height: 5'4" [...] 1: 138/100 Code: 8480-6 BMI: 35.7 Code: 24589-8 Heart Rate 1: 96 bpm Height: 5'4" Respiratory Rate: 20 bpm Temperature: 36 .8 (C) / 98.2 (F) Weight: 208 lbs 05/06/2012 Blood Pressure 1: 154/102 Code: 8480-6 BMI: 34.7 Code: 07066-8 Heart Rate 1: 116 bpm Height: 5'4" Respiratory Rate: 20 bpm Temperature: 36 .8 (C) / 98.2 (F) Weight: 202 lbs 04/03/2012 Blood Pressure 1: 134/94 Code: 8480-6 BMI: 34.8 Code: 73041-5 Heart Rate 1: 108 bpm Height: 5'4" Respiratory Rate: 20 bpm Temperature: 36 .8 (C) / 98.2 (F) Weight: 203 lbs 03/19/2012 Blood Pressure 1: 148/106 Code: 8480-6 BMI: 35.0 Code: 03250-1 Heart Rate 1: 100 bpm Height: 5'4" Respiratory Rate: 20 bpm Temperature: 36 .6 (C) / 97.9 (F) Weight: 204 lbs 02/22/2012 Blood Pressure 1: 146/94 Code: 8480-6 He art Rate 1: 88 bpm 02/21/2012 Blood Pressure 1: 172/120 Code: 8480-6 B lood Pressure 2: 152/106 Code: 8480-6 Heart Rate 1: 116 bpm 02/20/2012 Blood Pressure 1: 160/100 Code: 8480-6 BMI: 32.0 Code: 46693-3 Heart Rate 1: 84 bpm Height: 5'7" Temperature: 36.5 (C) / 97.7 (F) Weight: 204 lbs 01/30/2012 Blood Pressure 1: 152/110 Code: 8480-6 BMI: 32.0 Code: 94234-4 Heart Rate 1: 116 bpm Height: 5'7" Respiratory Rate: 20 bpm Temperature: 37 .0 (C) / 98.6 (F) Weight: 204 lbs 01/24/2012 Blood Pressure 1: 146/100 Code: 8480-6 BMI: 32.0 Code: 09687-8 Heart Rate 1: 100 bpm Height: 5'7" Respiratory Rate: 20 bpm Temperature: 36 .7 (C) / 98.0 (F) Weight: 204 lbs 01/10/2012 Blood Pressure 1: 156/94 Code: 8480-6 BMI: 32.6 Code: 63038-7 Heart Rate 1: 72 bpm Height: 5'7" Respiratory Rate: 20 bpm Temperature: 36 .8 (C) / 98.2 (F) Weight: 208 lbs 12/11/2011 Blood Pressure 1: 146/100 Code: 8480-6 Heart Rat e 1: 116 bpm Height: 5'7" Respiratory Rate: 20 bpm Temperature: 36.9 (C) / 98.4 (F) We ight: 11/09/2011 Blood Pressure 1: 148/96 Code: 8480-6 BMI: 32.1 Code: 25584-6 Heart Rate 1: 116 bpm Height: 5'7" Respiratory Rate: 20 bpm Temperature: 36 .7 (C) / 98.0 (F) Weight: 205 lbs 09/13/2011 Blood Pressure 1: 126/88 Code: 8480-6 Heart Rate 1: 88 bpm Height: 5'7" Respiratory Rate: 20 bpm Temperature: 36.9 (C) / 98.4 (F) We ight: 08/31/2011 Blood Pressure 1: 118/82 Code: 8480-6 BMI: 32.0 Code: 31782-3 Heart Rate 1: 80 bpm Height: 5'7" Temperature: 36.4 (C) / 97.6 (F) Weight: 204 lbs 07/06/2011 Blood Pressure 1: 128/86 Code: 8480-6 BMI: 30.9 Code: 22933-7 Heart Rate 1: 92 bpm Height: 5'7" Respiratory Rate: 20 bpm Temperature: 36 .9 (C) / 98.4 (F) Weight: 197 lbs 06/06/2011 Blood Pressure 1: 112/74 Code: 8480-6 BMI: 31.0 Code: 66235-3 Heart Rate 1: 72 bpm Height: 5'7" [...] 1: 128/92 Code: 8480-6 BMI: 33.6 Code: 88888-2 Heart Rate 1: 104 bpm Height: 5'4" [...] Check-up Encounters Encounter Performer Location Codes Date ([id number]) OFFICE/OUTPATIENT VISIT EST Diagnosis: Type 2 diabetes mellitus with hyperglycemia[ICD10: E11.65] María Elena [facility] CPT-4: 01486 11/20/2019 ([id number]) OFFICE/OUTPATIENT VISIT EST Diagnosis: Ingrowing nail[ICD10: L60.0] Diagnosis: Type 2 diabetes mellitus with hyperglycemia[ICD10: E11.65] Kathleen Nadia [facility] CPT-4: 64467 10/07/2019 ([id number]) OFFICE/OUTPATIENT VISIT EST Diagnosis: DM w/o complication type II, uncontrolled[ICD10: E11.65] Diagnosis: Hypertriglyceridemia[ICD10: E78.1] Diagnosis: Essential hypertension[ICD10: I10] María Elena Waymindimaryjane APPIAH [facility] CPT-4: 93109 09/30/2019 ([id number]) NURSE/OUTPATIENT VISIT EST Diagnosis: Essential (primary) hypertension[ICD10: I10] Diagnosis: Cervicalgia[ICD10: M54.2] Diagnosis: Hyperglycemia, unspecified[ICD10: R73.9] Diagnosis: Mixed hyperlipidemia[ICD10: E78.2] María Elenagael BASURTO TED [facility]IAH [facility] CPT-4: 42839 09/29/2019 ([id number]) OFFICE/OUTPATIENT VISIT EST Diagnosis: Essential (primary) hypertension[ICD10: I10] Diagnosis: Fall from bed, sequela[ICD10: W06.XXXS] María Elenamarcella Appiah KYLAH BRAUNGAEL Fabiola APPIAH [facility] CPT-4: 97978 05/28/2019 ([id number]) NURSE/OUTPATIENT VISIT EST Diagnosis: Essential (primary) hypertension[ICD10: I10] María Elena Orendmaryjane APPIAH [facility] CPT-4: 08146 05/19/2019 ([id number]) OFFICE/OUTPATIENT VISIT EST Diagnosis: Essential (primary) hypertension[ICD10: I10] Diagnosis: Type 2 diabetes mellitus with hyperglycemia[ICD10: E11.65] Diagnosis: Intervertebral disc disorders with radiculopathy, 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] Diagnosis: Hormone replacement therapy[ICD10: Z79.890] María Elena MONTEROQUELINE Fabiola APPIAH [facility] CPT-4: 55781 01/22/2019 ([id number]) OFFICE/OUTPATIENT VISIT EST Diagnosis: Essential (primary) hypertension[ICD10: I10] Diagnosis: Type 2 diabetes mellitus with hyperglycemia[ICD10: E11.65] María Elena APPIAH [facility] CPT-4: 56389 09/30/2018 ([id number]) OFFICE/OUTPATIENT VISIT EST Diagnosis: Pain in left elbow[ICD10: M25.522] Diagnosis: Acute stress reaction[ICD10: F43.0] Diagnosis: Primary insomnia[ICD10: F51.01] Diagnosis: Abnormal weight gain[ICD10: R63.5] María Elena APPIAH [facility] CPT-4: 92632 08/27/2018 ([id number]) OFFICE/OUTPATIENT VISIT EST Diagnosis: Acute recurrent sinusitis, unspecified[ICD10: J01.91] Diagnosis: Follicular disorder, unspecified[ICD10: L73.9] Diagnosis: Tinea corporis[ICD10: B35.4] María Elena APPIAH [facility] CPT-4: 12422 08/09/2018 ([id number]) OFFICE/OUTPATIENT VISIT EST Diagnosis: Tinea corporis[ICD10: B35.4] Diagnosis: Anxiety disorder, unspecified[ICD10: F41.9] Diagnosis: Menopausal and female climacteric states[ICD10: N95.1] María Elena APPIAH [facility] CPT-4: 45673 07/22/2018 ([id number]) NURSE/OUTPATIENT VISIT EST Diagnosis: Cellulitis of right toe[ICD10: L03.031] María Elena APPIAH [facility] CPT-4: 69307 06/19/2018 ([id number]) OFFICE/OUTPATIENT VISIT EST Diagnosis: Cellulitis of right toe[ICD10: L03.031] Kathleen [facility] CPT-4: 30487 06/17/2018 ([id number]) OFFICE/OUTPATIENT VISIT EST Diagnosis: Migraine without aura, intractable, without status migrainosus[ICD10: G43.019] Diagnosis: Zoster without complications[ICD10: B02.9] Kathleen APPIAH [facility] CPT-4: 21478 05/16/2018 ([id number]) OFFICE/OUTPATIENT VISIT EST Diagnosis: Cellulitis of right lower limb[ICD10: L03.115] Kathleen APPIAH [facility] CPT-4: 44249 03/20/2018 ([id number]) OFFICE/OUTPATIENT VISIT EST Diagnosis: Cellulitis of right lower limb[ICD10: L03.115] Kathleen APPIAH [facility] CPT-4: 11383 03/18/2018 ([id number]) OFFICE/OUTPATIENT VISIT EST Diagnosis: Cellulitis of right lower limb[ICD10: L03.115] Kathleen [facility] CPT-4: 76452 03/15/2018 ([id number]) OFFICE/OUTPATIENT VISIT EST Diagnosis: Acute sinusitis, unspecified[ICD10: J01.90] Kathleen [facility] CPT-4: 42481 02/11/2018 ([id number]) NURSE/OUTPATIENT VISIT EST Diagnosis: Otitis media, unspecified, right ear[ICD10: H66.91] María Elena [facility] CPT-4: 67169 02/01/2018 ([id number]) OFFICE/OUTPATIENT VISIT EST Diagnosis: Acute suppurative otitis media without spontaneous rupture of ear drum, left ear[ICD10: H66.002] Diagnosis: Abnormal weight gain[ICD10: R63.5] Diagnosis: Intervertebral disc disorders with radiculopathy, 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] Kathleen APPIAH [facility] CPT-4: 99 214 01/30/2018 ([id number]) PREV VISIT EST AGE 40-64 Diagnosis: Encounter for general adult medical examination without abnormal findings[ICD10: Z00.00] Diagnosis: Essential (primary) hypertension[ICD10: I10] Diagnosis: Mixed hyperlipidemia[ICD10: E78.2] Diagnosis: Type 2 diabetes mellitus with hyperglycemia[ICD10: E11.65] Diagnosis: 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90] Kathleen [facility] CPT-4: 02034 12/07/2017 OFFICE/OUTPATIENT VISIT EST Diagnosis: Acute maxillary sinusitis, unspecified[ICD10: J01.00] Kathleen [facility] CPT-4: 28381 10/08/2017 ([id number]) OFFICE/OUTPATIENT VISIT EST Diagnosis: Cellulitis of left toe[ICD10: L03.032] María Elena APPIAH DO [facility] CPT-4: 65401 09/21/2017 ([id number]) OFFICE/OUTPATIENT VISIT EST Diagnosis: Insomnia, unspecified[ICD10: G47.00] Diagnosis: Major depressive disorder, single episode, unspecified[ICD10: F32.9] Diagnosis: Anxiety disorder, unspecified[ICD10: F41.9] Diagnosis: Cellulitis of left toe[ICD10: L03.032] Diagnosis: Snoring[ICD10: R06.83] Kathleen APPIAH DO [facility] CPT-4: 41707 09/20/2017 ([id number]) OFFICE/OUTPATIENT VISIT EST Diagnosis: Cellulitis of left toe[ICD10: L03.032] María Elena APPIAH DO [facility] CPT-4: 79380 07/19/2017 OFFICE/OUTPATIENT VISIT EST Diagnosis: Chronic sinusitis, unspecified[ICD10: J32.9] Diagnosis: Generalized hyperhidrosis[ICD10: R61] Kathleen APPIAH DO [facility] CPT-4: 05924 06/27/2017 ([id number]) OFFICE/OUTPATIENT VISIT EST Diagnosis: Intervertebral disc disorders with radiculopathy, 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] Diagnosis: Primary insomnia[ICD10: F51.01] Diagnosis: Other fatigue[ICD10: R53.83] María Elena APPIAH DO [facility] CPT-4: 05860 04/10/2017 ([id number]) OFFICE/OUTPATIENT VISIT EST Diagnosis: Primary insomnia[ICD10: F51.01] Diagnosis: Localized edema[ICD10: R60.0] Diagnosis: 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] María Elena [facility] CPT-4: 53539 12/13/2016 ([id number]) OFFICE/OUTPATIENT VISIT EST Diagnosis: Primary insomnia[ICD10: F51.01] Diagnosis: Cyanosis[ICD10: R23.0] María Elena [facility] CPT-4: 73242 11/01/2016 ([id number]) PREV VISIT EST AGE 40-64 Diagnosis: Encounter for gynecological examination (general) (routine) without abnormal findings[ICD10: Z01.419] Diagnosis: Encounter for routine child health examination without abnormal findings[ICD10: Z00.129] María Elena [facility]IAH [facility] CPT-4: 18061 10/17/2016 ([id number]) OFFICE/OUTPATIENT VISIT EST Diagnosis: Other seasonal allergic rhinitis[ICD10: J30.2] María Elena [facility] CPT-4: 24526 10/10/2016 ([id number]) OFFICE/OUTPATIENT VISIT EST Diagnosis: Pain in left arm[ICD10: M79.602] Diagnosis: Contact with and (suspected) exposure to potentially hazardous body fluids[ICD10: Z77.21] Diagnosis: 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, 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] Diagnosis: Unspecified open wound, right foot, sequela[ICD10: S91.301S] María Elena [facility]IAH [facility] CPT-4: 25797 09/19/2016 ([id number]) OFFICE/OUTPATIENT VISIT EST Diagnosis: Chronic sinusitis, unspecified[ICD10: J32.9] Diagnosis: Allergic rhinitis due to pollen[ICD10: J30.1] María Elena [facility]IA[facility] CPT-4: 06316 08/24/2016 ([id number]) OFFICE/OUTPATIENT VISIT EST Diagnosis: Acute bronchitis, unspecified[ICD10: J20.9] María Elena APPIAH DO [facility] CPT-4: 22390 08/16/2016 ([id number]) OFFICE/OUTPATIENT VISIT EST Diagnosis: Otitis media, unspecified, right ear[ICD10: H66.91] Diagnosis: Acute bronchitis, unspecified[ICD10: J20.9] María Elena APPIAH DO [facility] CPT-4: 06074 08/10/2016 ([id number]) OFFICE/OUTPATIENT VISIT EST Diagnosis: Acute recurrent sinusitis, unspecified[ICD10: J01.91] Diagnosis: Allergic rhinitis due to pollen[ICD10: J30.1] María Elena APPIAH DO [facility] CPT-4: 28648 08/02/2016 ([id number]) OFFICE/OUTPATIENT VISIT EST Diagnosis: Pain in unspecified joint[ICD10: M25.50] María Elena APPIAH DO [facility] CPT-4: 74782 07/27/2016 OFFICE/OUTPATIENT VISIT EST Diagnosis: 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] Diagnosis: Acute recurrent sinusitis, unspecified[ICD10: J01.91] Diagnosis: Other fatigue[ICD10: R53.83] Diagnosis: Primary insomnia[ICD10: F51.01] Diagnosis: Pain in unspecified joint[ICD10: M25.50] María Elena APPIAH DO [facility] CPT-4: 23976 07/20/2016 ([id number]) OFFICE/OUTPATIENT VISIT EST Diagnosis: Blister (nonthermal), left great toe, initial encounter[ICD10: S90.422A] Loan APPIAH DO [facility] CPT-4: 18229 ([id number]) OFFICE/OUTPATIENT VISIT EST Diagnosis: Acute recurrent sinusitis, unspecified[ICD10: J01.91] María Elena APPIAH DO [facility] CPT-4: 79246 05/25/2016 ([id number]) OFFICE/OUTPATIENT VISIT EST Diagnosis: Acute sinusitis, unspecified[ICD10: J01.90] María Elena APPIAH DO [facility] CPT-4: 09885 04/26/2016 ([id number]) OFFICE/OUTPATIENT VISIT EST Diagnosis: Flushing[ICD10: R23.2] Diagnosis: Primary insomnia[ICD10: F51.01] María Elena APPIAH DO [facility] CPT-4: 38376 03/02/2016 ([id number]) OFFICE/OUTPATIENT VISIT EST Diagnosis: Other seasonal allergic rhinitis[ICD10: J30.2] Loan APPIAH [facility] CPT-4: 76709 02/09/2016 ([id number]) OFFICE/OUTPATIENT VISIT EST Diagnosis: Primary insomnia[ICD10: F51.01] Diagnosis: Urinary tract infection, site not specified[ICD10: N39.0] María Elena [facility] CPT-4: 03914 01/24/2016 ([id number]) OFFICE/OUTPATIENT VISIT EST Diagnosis: Other specified disorders of Eustachian tube, bilateral[ICD10: H69.83] Diagnosis: Allergic rhinitis, unspecified[ICD10: J30.9] Loan [facility] CPT-4: 56238 12/23/2015 ([id number]) OFFICE/OUTPATIENT VISIT EST Diagnosis: Acute recurrent sinusitis, unspecified[ICD10: J01.91] Diagnosis: 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] Diagnosis: Allergic rhinitis, unspecified[ICD10: J30.9] María Elena [facility] CPT-4: 84960 12/08/2015 ([id number]) OFFICE/OUTPATIENT VISIT EST Diagnosis: Allergic rhinitis, unspecified[ICD10: J30.9] Diagnosis: Pain in unspecified joint[ICD10: M25.50] María Elena [facility] CPT-4: 88349 10/07/2015 ([id number]) OFFICE/OUTPATIENT VISIT EST Diagnosis: Essential (primary) hypertension[ICD10: I10] María Elena [facility] CPT-4: 76677 10/06/2015 OFFICE/OUTPATIENT VISIT EST Diagnosis: Localized enlarged lymph nodes[ICD10: R59.0] Diagnosis: Local infection of the skin and subcutaneous tissue, unspecified[ICD10: L08.9] June [facility] CPT- 4: 85966 09/14/2015 ([id number]) OFFICE/OUTPATIENT VISIT EST Diagnosis: Essential (primary) hypertension[ICD10: I10] Diagnosis: Actinic keratosis[ICD10: L57.0] María Elena [facility] CPT-4: 86814 09/07/2015 ([id number]) OFFICE/OUTPATIENT VISIT EST Diagnosis: Essential (primary) hypertension[ICD10: I10] Diagnosis: Acute stress reaction[ICD10: F43.0] María Elena APPIAH [facility] CPT-4: 64596 08/18/2015 ([id number]) OFFICE/OUTPATIENT VISIT EST Diagnosis: Essential (primary) hypertension[ICD10: I10] María Elena APPIAH [facility] CPT-4: 05567 07/07/2015 ([id number]) OFFICE/OUTPATIENT VISIT EST Diagnosis: Essential (primary) hypertension[ICD10: I10] María Elena [facility] CPT-4: 53172 06/24/2015 ([id number]) OFFICE/OUTPATIENT VISIT EST Diagnosis: Essential (primary) hypertension[ICD10: I10] María Elena [facility] CPT-4: 43745 06/21/2015 ([id number]) OFFICE/OUTPATIENT VISIT EST Diagnosis: Essential (primary) hypertension[ICD10: I10] Diagnosis: Mixed hyperlipidemia[ICD10: E78.2] Diagnosis: Acute stress reaction[ICD10: F43.0] Diagnosis: Primary insomnia[ICD10: F51.01] María Elena [facility] CPT-4: 97789 06/16/2015 ([id number]) OFFICE/OUTPATIENT VISIT EST Diagnosis: INSOMNIA NOS[ICD9: 780.52] Diagnosis: HYPERTENSION[ICD9: 401.9] Diagnosis: Stress reaction[ICD9: 308.9] María Elena [facility] CPT-4: 66239 06/02/2015 ([id number]) OFFICE/OUTPATIENT VISIT EST Diagnosis: HYPERTENSION[ICD9: 401.9] Diagnosis: Stress reaction[ICD9: 308.9] María Elena [facility] CPT-4: 71455 05/20/2015 ([id number]) OFFICE/OUTPATIENT VISIT EST Diagnosis: Skin lesion[ICD9: 709.9] 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] María Elena [facility] CPT-4: 82044 05/10/2015 ([id number]) OFFICE/OUTPATIENT VISIT EST Diagnosis: SINUSITIS, ACUTE[ICD9: 461.9] Diagnosis: ALLERGIC RHINITIS[ICD9: 477.9] Diagnosis: DERMATITIS NOS[ICD9: 692.9] María Elena REHMAN [facility] CPT-4: 97689 03/16/2015 OFFICE/OUTPATIENT VISIT EST Diagnosis: Otitis media[ICD9: 382.9] Diagnosis: SINUSITIS, ACUTE[ICD9: 461.9] June Sandra MARÍA ELENA [facility] CPT-4: 47762 09/11/2014 ([id number]) OFFICE/OUTPATIENT VISIT EST Diagnosis: HYPERLIPIDEMIA NEC/NOS[ICD9: 272.4] María Elena [facility] CPT-4: 43737 08/31/2014 ([id number]) OFFICE/OUTPATIENT VISIT EST Diagnosis: - I - HYPERTENSION[ICD9: 401.9] Diagnosis: HYPERLIPIDEMIA NEC/NOS[ICD9: 272.4] María Elena [facility] CPT-4: 69767 08/27/2014 ([id number]) OFFICE/OUTPATIENT VISIT EST Diagnosis: ABDOMINAL PAIN[ICD9: 789.00] Diagnosis: DYSPEPSIA[ICD9: 536.8] Diagnosis: Thoracic back pain[ICD9: 724.1] María Elena [facility] CPT-4: 54316 07/21/2014 ([id number]) OFFICE/OUTPATIENT VISIT EST Diagnosis: ALLERGIC RHINITIS[ICD9: 477.9] María Elena [facility] CPT-4: 54980 07/15/2014 ([id number]) OFFICE/OUTPATIENT VISIT EST Diagnosis: EDEMA[ICD9: 782.3] Diagnosis: Chronic insomnia[ICD9: 780.52] María Elena APPIAH [facility] CPT-4: 71186 05/18/2014 ([id number]) OFFICE/OUTPATIENT VISIT EST Diagnosis: Thyromegaly[ICD9: 240.9] Diagnosis: - I - HYPERTENSION[ICD9: 401.9] Diagnosis: ROUTINE MEDICAL EXAM[ICD9: V70.0] Diagnosis: EDEMA[ICD9: 782.3] María Elena APPIAH [facility] CPT-4: 70559 05/14/2014 OFFICE/OUTPATIENT VISIT EST Diagnosis: BRONCHITIS, ACUTE[ICD9: 466.0] Diagnosis: SINUSITIS, ACUTE[ICD9: 461.9] María Elena APPIAH [facility] CPT-4: 70764 04/21/2014 OFFICE/OUTPATIENT VISIT EST Diagnosis: SINUSITIS, ACUTE[ICD9: 461.9] June Flores MARÍA ELENA APPIAH [facility] CPT-4: 80912 03/04/2014 ([id number]) OFFICE/OUTPATIENT VISIT EST Diagnosis: VACCINE FOR TDAP[ICD10: Z23] María Elena APPIAH [facility] CPT-4: 86070 02/27/2014 ([id number]) OFFICE/OUTPATIENT VISIT EST Diagnosis: Seborrheic keratoses, inflamed[ICD9: 702.11] Diagnosis: ACTINIC KERATOSIS[ICD9: 702.0] Diagnosis: INSOMNIA NOS[ICD9: 780.52] María Elena PANDYA [facility] CPT-4: 62904 01/13/2014 OFFICE/OUTPATIENT VISIT EST 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] Diagnosis: ALLERGIC RHINITIS[ICD9: 477.9] Diagnosis: Serous otitis media[ICD9: 381.4] María Elena WAYNDER [facility] CPT-4: 04369 12/24/2013 ([id number]) OFFICE/OUTPATIENT VISIT EST Diagnosis: SINUSITIS, ACUTE[ICD9: 461.9] Diagnosis: ALLERGIC RHINITIS[ICD9: 477.9] 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] María Elena APPIAH [facility] CPT-4: 27383 11/12/2013 ([id number]) OFFICE/OUTPATIENT VISIT EST Diagnosis: ALLERGIC RHINITIS[ICD9: 477.9] Diagnosis: SINUSITIS, ACUTE[ICD9: 461.9] María Elena APPIAH [facility] CPT-4: 85650 10/21/2013 ([id number]) OFFICE/OUTPATIENT VISIT EST Diagnosis: ASYMPTOMATIC VARICOSE VEINS[ICD9: 454.9] Diagnosis: INSOMNIA NOS[ICD9: 780.52] María Elena [facility] CPT-4: 36429 09/22/2013 OFFICE/OUTPATIENT VISIT EST Diagnosis: SINUSITIS, ACUTE[ICD9: 461.9] uJne APPIAH [facility] CPT-4: 19816 08/27/2013 ([id number]) OFFICE/OUTPATIENT VISIT EST Diagnosis: CEPHALGIA[ICD9: 784.0] Diagnosis: CEPHALGIA, TENSION[ICD9: 307.81] 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] María Elena APPIAH [facility] CPT-4: 23525 08/04/2013 ([id number]) OFFICE/OUTPATIENT VISIT EST Diagnosis: Cervicalgia[ICD9: 723.1] Diagnosis: SPASM OF MUSCLE[ICD9: 728.85] Diagnosis: CEPHALGIA, TENSION[ICD9: 307.81] María Elena APPIAH [facility] CPT-4: 80368 07/23/2013 ([id number]) OFFICE/OUTPATIENT VISIT EST 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] Diagnosis: ALLERGIC RHINITIS[ICD9: 477.9] María Elena APPIAH [facility] CPT-4: 53677 06/23/2013 ([id number]) OFFICE/OUTPATIENT VISIT EST Diagnosis: ALLERGIC RHINITIS[ICD9: 477.9] Diagnosis: ACUTE SEROUS OTITIS MEDIA[ICD9: 381.01] 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] María Elena Seamusdawn JUARES AlanJj DT [facility] CPT-4: 03942 05/26/2013 ([id number]) OFFICE/OUTPATIENT VISIT EST Diagnosis: HYPERTENSION[ICD9: 401.9] Diagnosis: EDEMA[ICD9: 782.3] Diagnosis: Serous otitis media[ICD9: 381.4] María Elena Seamusdawn JUARES AlanJj TD [facility] CPT-4: 09970 04/16/2013 ([id number]) OFFICE/OUTPATIENT VISIT EST Diagnosis: SINUSITIS, ACUTE[ICD9: 461.9] Diagnosis: ALLERGIC RHINITIS[ICD9: 477.9] Diagnosis: EDEMA[ICD9: 782.3] Diagnosis: Thyromegaly[ICD9: 240.9] Diagnosis: MALAISE AND FATIGUE[ICD9: 780.79] María Elena Lopez AlanJj [facility] CPT-[facility]: 46382 03/05/2013 ([id number]) OFFICE/OUTPATIENT VISIT EST Diagnosis: PAIN, LOWER BACK[ICD9: 724.2] Diagnosis: SPASM OF MUSCLE[ICD9: 728.85] María Elena JUARES AlanJj [facility] CPT-4: 24273 12/23/2012 OFFICE/OUTPATIENT VISIT EST Diagnosis: Low back pain[ICD9: 724.2] Lashawn Hicks KRISTYN [facility] CPT-[facility]: 02437 12/16/2012 ([id number]) OFFICE/OUTPATIENT VISIT EST Diagnosis: PAIN, LOWER BACK[ICD9: 724.2] Diagnosis: SCIATICA[ICD9: 724.3] Diagnosis: Lumbar herniated disc[ICD9: 722.10] María Elena COLON AlanJj [facility] CPT-4: 35911 12/09/2012 ([id number]) OFFICE/OUTPATIENT VISIT EST Diagnosis: PAIN, LOWER BACK[ICD9: 724.2] Diagnosis: SCIATICA[ICD9: 724.3] Diagnosis: LUMBAR DISC DISPLACEMENT[ICD9: 722.10] María Elenamarcella MONTEROLui [facility] CPT-4: 18115 12/04/2012 OFFICE/OUTPATIENT VISIT EST Diagnosis: Pneumonia[ICD9: 486] Mary SerranoNomanJames [facility] CPT-4: 83445 11/22/2012 ([id number]) OFFICE/OUTPATIENT VISIT EST Diagnosis: PNEUMONIA, ORGANISM[ICD9: 486] Diagnosis: Exacerbation of RAD (reactive airway disease)[ICD9: 493.92] María Elena [facility] CPT-4: 81990 11/21/2012 OFFICE/OUTPATIENT VISIT EST Diagnosis: HYPERTENSION[ICD9: 401.9] Diagnosis: Cephalgia[ICD9: 784.0] Lashawn Eckert MARÍA ELENA [facility] CPT-4: 74549 10/29/2012 ([id number]) OFFICE/OUTPATIENT VISIT EST Diagnosis: MALAISE AND FATIGUE[ICD9: 780.79] Diagnosis: ARTHRALGIA-MULTIPLE SITES[ICD9: 719.49] María Elena Waymindimaryjane [facility] CPT-4: 12154 10/14/2012 ([id number]) OFFICE/OUTPATIENT VISIT EST Diagnosis: URINARY FREQUENCY[ICD9: 788.41] María Elena [facility] CPT-4: 07485 09/27/2012 ([id number]) OFFICE/OUTPATIENT VISIT EST Diagnosis: MALAISE AND FATIGUE[ICD9: 780.79] Diagnosis: ARTHRALGIA-MULTIPLE SITES[ICD9: 719.49] María Elena Seamusdawn KYLAH [facility] CPT-4: 49511 09/25/2012 ([id number]) OFFICE/OUTPATIENT VISIT EST Diagnosis: SINUSITIS, ACUTE[ICD9: 461.9] 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] María Elena Marivelmaryjane MARÍA ELENA [facility] CPT-4: 63374 08/29/2012 OFFICE/OUTPATIENT VISIT EST Diagnosis: ACTINIC KERATOSIS[ICD9: 702.0] Diagnosis: Inflamed seborrheic keratosis[ICD9: 702.11] Diagnosis: Skin cancer of face[ICD9: 173.31] Diagnosis: HYPERTENSION[ICD9: 401.9] María Elena WAY NDER [facility] CPT-4: 08960 08/12/2012 ([id number]) OFFICE/OUTPATIENT VISIT EST Diagnosis: ARTHRALGIA-MULTIPLE SITES[ICD9: 719.49] Diagnosis: GOUT[ICD9: 274.9] Diagnosis: HYPERTENSION[ICD9: 401.9] Diagnosis: Tachycardia[ICD9: 785.0] María Elena HU KARLOS [facility] CPT-4: 07619 05/06/2012 ([id number]) OFFICE/OUTPATIENT VISIT EST Diagnosis: INSOMNIA NOS[ICD9: 780.52] María Elena PANDYA [facility] CPT-4: 72030 04/03/2012 ([id number]) OFFICE/OUTPATIENT VISIT EST Diagnosis: INSOMNIA NOS[ICD9: 780.52] Diagnosis: HYPERTENSION[ICD9: 401.9] Diagnosis: MIGRAINE NOS/NOT INTRCBL[ICD9: 346.90] María Elena MARIN SJj [facility] CPT-[facility]: 08585 03/19/2012 ([id number]) OFFICE/OUTPATIENT VISIT EST Diagnosis: CELLULITIS[ICD9: 682.9] Diagnosis: Ankle pain[ICD9: 719.47] Diagnosis: HYPERTENSION[ICD9: 401.9] María Elena WAY NDER [facility] CPT-4: 89594 02/20/2012 ([id number]) OFFICE/OUTPATIENT VISIT EST Diagnosis: MIGRAINE NOS/NOT INTRCBL[ICD9: 346.90] Diagnosis: Vomiting[ICD9: 787.03] María Elena ValdesJj MARIVELE R [facility] CPT-4: 39692 01/30/2012 ([id number]) OFFICE/OUTPATIENT VISIT EST Diagnosis: EDEMA[ICD9: 782.3] Diagnosis: HYPERTENSION[ICD9: 401.9] Diagnosis: ALLERGIC RHINITIS[ICD9: 477.9] Diagnosis: ARTHRALGIA-MULTIPLE SITES[ICD9: 719.49] María Elena ValdesJj APPIAH [facility] CPT-4: 65934 01/24/2012 ([id number]) OFFICE/OUTPATIENT VISIT EST Diagnosis: SPASM OF MUSCLE[ICD9: 728.85] Diagnosis: Thoracic back pain[ICD9: 724.1] Diagnosis: Cervical pain[ICD9: 723.1] María Elena PANDYA [facility] CPT-4: 43795 01/10/2012 OFFICE/OUTPATIENT VISIT EST Diagnosis: PAIN, LOWER BACK[ICD9: 724.2] Diagnosis: LUMBAR DISC DISPLACEMENT[ICD9: 722.10] María Elena APPIAH [facility] CPT-4: 87645 12/11/2011 OFFICE/OUTPATIENT VISIT EST Diagnosis: MIGRAINE NOS/NOT INTRCBL[ICD9: 346.90] Diagnosis: SINUSITIS, ACUTE[ICD9: 461.9] María Elena APPIAH [facility] CPT-4: 62879 11/09/2011 OFFICE/OUTPATIENT VISIT EST Diagnosis: MIGRAINE NOS/NOT INTRCBL[ICD9: 346.90] Diagnosis: LYMPHADENOPATHY[ICD9: 785.6] María Elena APPIAH [facility] CPT-4: 05319 09/13/2011 OFFICE/OUTPATIENT VISIT EST Diagnosis: MALAISE AND FATIGUE[ICD9: 780.79] Diagnosis: ARTHRALGIA-MULTIPLE SITES[ICD9: 719.49] María Elena Waymindimaryjane BRAUNGAEL Fabiola APPIAH [facility] CPT-4: 47390 08/31/2011 OFFICE/OUTPATIENT VISIT EST Diagnosis: SINUSITIS, ACUTE[ICD9: 461.9] María Elena APPIAH [facility] CPT-4: 51951 07/20/2011 OFFICE/OUTPATIENT VISIT EST Diagnosis: HYPERTENSION[ICD9: 401.9] Diagnosis: PAIN, LOWER BACK[ICD9: 724.2] Diagnosis: SPASM OF MUSCLE[ICD9: 728.85] María Elena APPIAH [facility] CPT-4: 97445 07/06/2011 OFFICE/OUTPATIENT VISIT EST Diagnosis: MIGRAINE NOS/NOT INTRCBL[ICD9: 346.90] Diagnosis: HYPERTENSION[ICD9: 401.9] María Elena [facility] CPT-4: 65205 05/22/2011 OFFICE/OUTPATIENT VISIT EST Diagnosis: SINUSITIS, ACUTE[ICD9: 461.9] Diagnosis: MIGRAINE NOS/NOT INTRCBL[ICD9: 346.90] Diagnosis: Dehydration[ICD9: 276.51] Diagnosis: Vomiting[ICD9: 787.03] María Elena Hicks [facility] CPT-4: 14946 05/09/2011 ([id number]) OFFICE/OUTPATIENT VISIT EST María Elena ISAAC [facility] CPT-4: 87058 02/14/2011 ([id number]) OFFICE/OUTPATIENT VISIT EST María Elena ISAAC [facility] CPT-4: 53434 02/03/2011 ([id number]) OFFICE/OUTPATIENT VISIT EST María Elena ISAAC [facility] CPT-4: 03830 01/31/2011 ([id number]) OFFICE/OUTPATIENT VISIT EST María Elena ISAAC [facility] CPT-4: 26111 01/25/2011 ([id number]) OFFICE/OUTPATIENT VISIT EST María Elena ISAAC [facility] CPT-4: 54530 01/18/2011 ([id number]) OFFICE/OUTPATIENT VISIT EST María Elena ISAAC [facility] CPT-4: 46544 11/29/2010 ([id number]) OFFICE/OUTPATIENT VISIT, EST María Elena REED [facility] CPT-4: 37695 10/10/2010 ([id number]) OFFICE/OUTPATIENT VISIT, EST María Elena MONTERO [facility] CPT-4: 86018 06/07/2010 ([id number]) OFFICE/OUTPATIENT VISIT, EST María Elenamarcella BRAUNLINE [facility] CPT-4: 03529 04/27/2010 ([id number]) OFFICE/OUTPATIENT VISIT, EST María Elena [facility]LINE [facility] CPT-4: 00790 04/05/2010 ([id number]) OFFICE/OUTPATIENT VISIT, EST María Elena [facility] CPT-4: 42495 03/09/2010 ([id number]) OFFICE/OUTPATIENT VISIT, EST María Elena [facility] CPT-4: 92653 03/03/2010 ([id number]) OFFICE/OUTPATIENT VISIT, EST María Elena [facility] CPT-4: 83683 01/17/2010 ([id number]) PREV VISIT, EST, AGE 40-64 María Elena [facility] CPT-4: 85850 12/27/2009 Plan of Care Planned Activity Notes Codes Status Date Visit Diagnosis Plan: Type 2 diabetes mellitus with hy perglycemia Discussion: Januvia 100mg daily Glimepride 2mg po BID Accuchecks BID Call in 2 weeks with BS readings Get formulary book ICD-9 : 250.02 ICD-10 : E11.65 11/20/2019 Patient Education: glimepiride- [employer] Coupon [id number] Completed 11/20/2019 Patient Education: Januvia- [employer] Coupon [id number] Completed 11/20/2019 Visit Diagnosis Plan: Ingrowing nail [...] ICD-10 : E11.65 10/07/2019 Appointment: Kathleen Zuniga [address] [place], [place] [id number] OFFICE SURGERY 10/07/2019 Visit Diagnosis Plan: [...] : E11.65 09/30/2019 Appointment: María Elena Appiahtel: [address] [place], [place] [phone] [place] CHECK UP 09/30/2019 Patient Education: Premarin- [employer] Coupon [id number] https://www.[employer].com/samplemd/resources/getResource/61/72336c99-p767-3dmv-z7 Completed 09/30/2019 Appointment: María Elena Appiah WPtel: [address] [place], [place] [phone] [place] LAB 09/29/2019 Appointment: María Elena Appiah WPtel: [address] [place], [place] [phone] [place] Won't have the new insurance till [...] : W06.XXXS 05/28/2019 Appointment: María Elena Appiahtel: [address] [place], [place] [phone] [place] FOLLOW UP 05/28/2019 Appointment: María Elena Appiah WPtel: [address] [place], [place] [phone] [place] BP CHECK 05/19/2019 Visit Diagnosis Plan: [...] : Z79.890 01/22/2019 Appointment: María Elena Appiahtel: [address] [place], [place] [id number] [place] FOLLOW UP 01/22/2019 Patient Education: estradiol- [employer] Coupon [id number] https://www.[employer]abana.Ordoro/samplemd/resources/getResource/61/103q719r-4um7-1l97-7c Completed 01/22/2019 Appointment: María Elena Appiahtel: [address] [place], [place] [id number] [place] CANCELED 01/20/2019 Appointment: María Elena Appiahl: [address] [place], [place] [phone] [place] LM NO SHOW 01/06/2019 Appointment: María Elena Appiah WPtel: [address] [place], [place] [phone] [place] CANCELED 10/17/2018 Appointment: María Elena Appiah WPtel: [address] [place] [address] US BP CHECK 10/09/2018 Visit Diagnosis Plan: [...] 09/30/2018 Appointment: María Elena Appiah WPtel: [address] [place] [address] [place] FOLLOW UP 09/30/2018 Visit Diagnosis Plan: [...] : F51.01 08/27/2018 Appointment: María Elena Appiahtel: [address] [place], [place] [phone] ACUTE ILLNESS 08/27/2018 Appointment: María Elena Appiah WPtel: [address] [place] [address] [place] Patient stated she went out to [...] 08/09/2018 Appointment: María Elena Appiah WPtel: [address] [place] [address] ACUTE ILLNESS 08/09/2018 Appointment: María Elena Appiah WPtel: [address] [place] [address] NO SHOW 08/08/2018 Visit Diagnosis Plan: Anxiety [...] B35.4 07/22/2018 Appointment: María Elena Appiah WPtel: [address] [place] [address] ACUTE ILLNESS 07/22/2018 Appointment: María Elena Appiah WPtel: [address] [place] [address] [place] INJECTION 06/19/2018 Patient Education: Patient Medication [...] : L03.031 06/17/2018 Appointment: Kathleen Zuniga [address] [place] [address] ACUTE ILLNESS 06/17/2018 Patient Education: Patient Medication [...] : B02.9 05/16/2018 Appointment: Kathleen Zuniga [address] [place], [place] [phone] ACUTE ILLNESS 05/16/2018 Patient Education: Patient Medication [...] : L03.115 03/20/2018 Appointment: Kathleen Zuniga [address] [place], [place] [address] FOLLOW UP 03/20/2018 Patient Education: Patient Medication [...] ICD-10 : L03.115 03/18/2018 Appointment: Kathleen Zuniga [address] [place] [address] FOLLOW UP 03/18/2018 Patient Education: Patient Medication [...] : L03.115 03/15/2018 Appointment: Kathleen Zuniga [address] [place], [place] [address] ACUTE ILLNESS 03/15/2018 Patient Education: Patient Medication [...] ICD-10 : J01.90 02/11/2018 Appointment: Kathleen Zuniga [address] [place], [place] [phone] ACUTE ILLNESS 02/11/2018 Patient Education: Patient Medication Summary Completed 02/11/2018 Appointment: María Elena Appiah WPtel: [phone] [phone] INJECTION 02/01/2018 Patient Education: Patient Medication Summary [...] ICD-10 : M51.16 01/30/2018 Appointment: Kathleen Zuniga [address] [place] [address] ACUTE ILLNESS 01/30/2018 Patient Education: Patient Medication [...] 12/18/2017 Appointment: María Elena Appiah WPtel: [phone] [facility] Annual Well Visit 12/18/2017 Patient Education: Patient Medication Summary Completed 12/18/2017 Care Plan: Referral Order SNOMED-CT : [id number] Pending 12/18/2017 Appointment: María Elena Appiah WPtel: [phone] [facility] [place] INJECTION 12/10/2017 Patient Education: Patient [...] : L03.031 12/07/2017 Appointment: Kathleen Zuniga [address] [place] [address] ACUTE ILLNESS 12/07/2017 Patient Education: Patient Medication [...] ICD-10 : J01.00 10/08/2017 Appointment: Kathleen Zuniga [address] [place] [address] ACUTE ILLNESS 10/08/2017 Patient Education: Patient Medication Summary Completed 10/08/2017 Appointment: María Elena Appiah WPtel: [phone] [facility] [place] INJECTION 09/21/2017 Patient Education: Patient [...] ICD-10 : R06.83 09/20/2017 Appointment: Kathleen Zuniga [address] [place], [place] [id number] ACUTE ILLNESS 09/20/2017 Patient Education: Patient Medication [...] : L60.0 08/29/2017 Appointment: Kathleen Zuniga [address] [place] [address] OFFICE SURGERY 08/29/2017 Patient Education: Patient Medication Summary Completed 08/29/2017 Visit Diagnosis Plan: Actinic keratosis Discussion: Cr yotherapy as above ICD-9 : 702.0 ICD-10 : L57.0 08/01/2017 Appointment: María Elena Appiah WPtel: [address] [place] [address] OFFICE SURGERY 08/01/2017 Patient Education: Patient Medication Summary Completed 08/01/2017 Appointment: María Elena Appiah WPtel: [address] [place] [address] PATIENT THOUGHT APPOINTMENT WAS TOMORROW 07/26/17 CALLED 15 MINUTES BEFORE APPT TO SAY SHE DIDN'T HAVE ANYONE TO COVER HER BUSINESS AND WOULD NOT MAKE IT NO SHOW 07/25/2017 Visit Diagnosis Plan: Cellulitis of left toe Discussio n: Clindamycin and notify if worsening or persistis ICD-9 : 681.10 ICD-10 : L03.032 07/19/2017 Appointment: María Elena Appiah WPtel: [address] [place], [place] [phone] MEDICATION REVIEW 07/19/2017 Patient Education: Patient Medication Summary Completed 07/19/2017 Appointment: María Elena Appiah WPtel: [address] [place], [place] [id number] CANCELED 07/04/2017 Visit Diagnosis Plan: Generalized hyperhidrosis Discus ian: CBC, CMP, TSH, free T4 ordered to assess. will review labs. ICD-9 : 780.8 ICD-10 : R61 06/27/2017 Visit Diagnosis Plan: Chronic sinusitis, unspecified D iscussion: Referral sent to dr. albarado in [place] per patient request. patient has been treated multiple times for sinus infections with no recovery. patient was seen by dr sanchez in the past with no interventions. patient has deviated septum which may be affecting her sinuses. 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, including hip Discussion: Shave removal of above lesio n--sent to pathology ICD-9 : 216.7 ICD-10 : D23.72 01/24/2017 Appointment: María Elena Appiah WPtel: [address] [place], [place] [phone] 01/23 confirmed ~sl OFFICE SURGERY 01/24/2017 Patient Education: Patient Medication Summary Completed 01/24/2017 Appointment: Loan Sánchez [address] [place], [place] [id number] 01/09 rescheduled~sl RESCHEDULED 01/15/2017 Visit Diagnosis Plan: [...] 12/13/2016 App[facility]ment: [facility] [phone] [facility] [place] 12/12 confirmed ~ MEDICATION REVIEW 12/13/2016 Patient Education: Patient Medication Summary Completed 12/13/2016 Appointment: María [facility] [phone] [id number] [place] rescheduled for 12/13/16 at 11am RESCHEDULED 0 12/06/2016 Appointment: María Elena Appiah WPtel: [phone] [id number] [facility] CANCELED 11/23/2016 Patient Education: [...] 11/01/2016 Appointment: María Elena Appiah WPtel: [phone] [id number] [place] 10/31 lm `sl 11/01 lm`sl MEDICATION REVIEW 017 Patient Education: Patient Medication Summary Completed 11/01/2016 Referral: Canelo Overton WPtel: [phone] [id number] [place] Referral Initiated 10/30/2016 Visit Diagnosis Plan: [...] 10/17/2016 Appointment: María Elena Appiah WPtel: [address] [place], [place] [phone] 10/16 confirmed ~sl PAP 10/17/2016 Patient Education: Patient Medication Summary Completed 10/17/2016 Care Plan: MAMMOGRAM SCREENING LOINC : 2 6347-5 Pending 10/17/2016 Visit Diagnosis Plan: Other seasonal allergic rhinitis Discussion: Decadron/Garamycin Nasal [place] Mix Too soon for steroid Retry zyrtec 10mg daily ICD-9 : 477.9 ICD-10 : J30.2 10/10/2016 Appointment: María Elena Appiah WPtel: [address] [place], [place] [phone] [place] FOLLOW UP 10/10/2016 Patient Education: Patient Medication Summary Completed 10/10/2016 Appointment: María Elena Appiah WPtel: [address] [place], [place] [id number] 10/02 reschedule `sl RESCHEDULED 10/02/2016 Visit Plan: See surgery for removal of n ew left arm lesion and right foot lesion Lyrica to use next month for left arm paresthesias Continue current meds Discussed sunscreen/sunblock combo 09/19/2016 Appointment: María Elena Appiah WPtel: [address] [place], [place] [phone] 09/18 confirmed ~sl FOLLOW UP 09/19/2016 Patient Education: Patient Medication Summary Completed 09/19/2016 Patient Education: Patient Medication Summary Completed 09/18/2016 Care Plan: MAMMOGRAM BOTH BREASTS LOINC : 13095-3 Pending 09/18/2016 Visit Plan: Discussed that needs [...] sinuses 08/24/2016 Appointment: María Elena Appiah WPtel: [address] [place] [address] ACUTE ILLNESS 08/24/2016 Patient Education: Patient Medication Summary Completed 08/24/2016 Patient Education: Patient Medication Summary Completed 08/23/2016 Care Plan: MAMMOGRAM SCREENING LOINC : 2 6347-5 Pending 08/23/2016 Visit Plan: Finish doxycycline Add Breo 100/25 1 p BID for 2 weeks If not improving within next 2 days will get CXR 08/16/2016 Appointment: María Elena Appiah WPtel: [address] [place] [address] ACUTE ILLNESS 08/16/2016 Patient Education: Patient Medication Summary Completed 08/16/2016 Visit Plan: Supportive care. Rest, Fluid s, Tylenol/Motrin prn fever or bodyaches. Notify if worsening symptoms. Doxycyline and Prednisone 08/10/2016 Appointment: María Elena Appiah WPtel: [address] [place] [address] 08/09 lm`sl....confirmed-sp FOLLOW UP 09/2015 Patient Education: Patient Medication Summary Completed 08/10/2016 Visit Plan: Saline nasal flushes prn. Ty lenol/Motrin prn headache. Notify if persists/symptoms worsening. Dexamethasone 8mg IM today May use coricedan and mucinex 08/02/2016 Appointment: María Elena Appiah WPtel: [address] [place] [address] ACUTE ILLNESS 08/02/2016 Patient Education: Patient Medication Summary Completed 08/02/2016 Visit Plan: Cryotherapy as above and lef t forearm lesion removal as above with 5-0 punch biopsy and sent to path Return in 10 days for suture removal 08/01/2016 Appointment: María Elena Appiah WPtel: [address] [place], [place] [phone] 07/31 confirmed`~sl OFFICE SURGERY 08/01/2016 Patient Education: Patient Medication Summary Completed 08/01/2016 Visit Plan: Stop clindamycin Check CBC, CMP, ESR now/STAT 07/27/2016 Appointment: María Elena Appiah WPtel: [address] [place], [place] [phone] ACUTE ILLNESS 07/27/2016 Patient Education: Patient Medication Summary Completed 07/27/2016 Visit Plan: Update lab and check ABIs to start with Will likely need cardiology evaluation to rule out PVD Clindamycin for 10 days Daily yogurt or probiotic Will return for removal of left arm lesions 07/20/2016 Appointment: María Elena Appiah WPtel: [address] [place], [place] [phone] ACUTE ILLNESS 07/20/2016 Patient Education: Patient Medication Summary Completed 07/20/2016 Patient Education: Patient Medication Summary Completed 07/20/2016 Care Plan: MAMMOGRAM BOTH BREASTS LOINC : 42808-9 Pending 07/20/2016 Care Plan: US EXAM CHEST LOINC : 11640-4 Pending 07/20/2016 Visit Plan: Wound culture collected from left great toe Appearance is somewhat staph like Rx as above Wound cleanser and skin care reviewed May need to add oral antibiotic if sores do not heal or continue to reoccur 07/06/2016 Appointment: Loan Sánchez [address] [place], [place] [phone] ACUTE ILLNESS 07/06/2016 Patient Education: Patient Medication Summary Completed 07/06/2016 Appointment: María Elena Appiah WPtel: [address] [place], [place] [phone] [place] INJECTION 05/25/2016 Patient Education: Patient Medication Summary Completed 05/25/2016 Visit Plan: Saline nasal flushes prn. Ty lenol/Motrin prn headache. Notify if persists/symptoms worsening. Dexamethasone and Rocephin given 04/26/2016 Appointment: María Elena Appiah WPtel: [address] [place] [address] ACUTE ILLNESS 04/26/2016 Patient Education: Patient Medication Summary Completed 04/26/2016 Visit Plan: Check CBC, CMP, TSH, FreeT4, HbA1C, estradiol, lipids in AM 03/02/2016 Appointment: María Elena Appiah WPtel: [address] [place] [address] 03/01 lm~sl ACUTE ILLNESS 03/02/2016 Patient Education: Patient Medication Summary Completed 03/02/2016 Visit Plan: Exam is nearly normal Needs to be taking daily antihistamine Would prefer to use oral steroids instead of shot but patient insist that oral steroids cause horrible headaches for her Will given kenalog IM instead 02/09/2016 Appointment: Loan Sánchez [address] [place] [address] ACUTE ILLNESS 02/09/2016 Patient Education: Patient Medication Summary Completed 02/09/2016 Visit Plan: Culture urine Macrobid DC xa nax Trial of Ativan 1mg q HS 01/24/2016 Appointment: María Elena Appiah WPtel: [address] [place] [address] ACUTE ILLNESS 01/24/2016 Patient Education: Patient Medication Summary Completed 01/24/2016 Visit Plan: No steroid or rocephin injec tion warranted Can have oral prednisone Continue current home regimen Needs to follow up with Dr Sanchez if problems persist 12/23/2015 Appointment: Loan Sánchez [address] [place] [address] ACUTE ILLNESS 12/23/2015 Patient Education: Patient Medication Summary Completed 12/23/2015 Visit Plan: Saline nasal flushes prn. Ty lenol/Motrin prn headache. Notify if persists/symptoms worsening. Kenalog 40mg IM today 12/08/2015 Appointment: María Elena Appiah WPtel: [address] [place] [address] 12/06 confirmed~sl ACUTE ILLNESS 12/08/2015 Patient Education: Patient Medication Summary Completed 12/08/2015 Appointment: María Elena Appiah WPtel: [address] [place] [address] ACUTE ILLNESS 11/18/2015 Patient Education: Patient Medication Summary Completed 10/11/2015 Appointment: María Elena Appiah WPtel: [address] [place], [place] [phone] [place] INJECTION 10/07/2015 Patient Education: Patient Medication Summary Completed 10/07/2015 Visit Plan: Check renal arterial doppler s and ECHO Change amlodopine to lotrel 5/20mg q HS Will need stress test as well Check CMP, uric acid, ESR 10/06/2015 Appointment: María Elena Appiah WPtel: [address] [place] [address] ACUTE ILLNESS 10/06/2015 Patient Education: Patient Medication Summary Completed 10/06/2015 Patient Education: [facility] [employer]aving [employer] - Amlodipine Besylate - 18-64 - Dynamic Portal ID Completed 10/06/2015 Appointment: María Elena Appiah WPtel: [address] [place] [address] FOLLOW UP 09/22/2015 Visit Plan: Cephalexin 500 mg PO bid Mery ly topical Mupirocin to lesions on left lateral neck and face Follow-up in one week. Sooner if symptoms worsen 09/14/2015 Appointment: June Flores WPtel: [address] [place], [place] [phone] ACUTE ILLNESS 09/14/2015 Patient Education: Patient Medication Summary Completed 09/14/2015 Visit Plan: Change bystolic to bedtime d osing and amlodopine to morning dosing Cryotherapy as above to AKs 09/07/2015 Appointment: María Elena Appiah WPtel: [address] [place], [place] [phone] 09/06 appointment made and confirmed ~sl FOLLOW UP 09/07/2015 Patient Education: Patient Medication Summary Completed 09/07/2015 Visit Plan: Increase bystolic back to 20 mg daily but will split and take 10mg in AM and 10mg in PM Stress Reducers 08/18/2015 Appointment: María Elena Appiahtel: [address] [place], [place] [phone] 08/17/15 appt confirmed cn ACUTE ILLNESS 08/18 Patient Education: Patient Medication Summary Completed 08/18/2015 Appointment: María Elena Appiah WPtel: [address] [place] [address] BP CHECK 07/07/2015 Patient Education: Patient Medication Summary Completed 07/07/2015 Appointment: María Elena Appiah WPtel: [address] [place] [address] BP CHECK 06/24/2015 Patient Education: Patient Medication Summary Completed 06/24/2015 Appointment: María Elena Appiah WPtel: [address] [place] [address] BP CHECK 06/21/2015 Patient Education: Patient Medication Summary Completed 06/21/2015 Visit Plan: Lab discussed Continue suhail nt meds and lifestyle modification Recheck lab in 6mos 06/16/2015 Appointment: María Elena Appiah WPtel: [address] [place] [address] 06/15 confirmed FOLLOW UP 06/16/2015 Patient Education: Patient Medication Summary Completed 06/16/2015 Patient Education: Patient Medication Summary Completed 06/15/2015 Visit Plan: Increase cymbalta to 60mg q HS Keep clonidine at current dose Recheck 2weeks Change xanax to klonopin 06/02/2015 Appointment: María Elena Appiahtel: [address] [place] [address] 06/02 lm FOLLOW UP 06/02/2015 Patient Education: Patient Medication Summary Completed 06/02/2015 Appointment: María Elena Appiah WPtel: [address] [place] [address] ACUTE ILLNESS 05/24/2015 Visit Plan: Increase clonidine to 0.2mg q HS Add cymbalta 30mg q HS Recheck 2weeks Stress Reducers Check fasting lab Discussed sleep study 05/20/2015 Appointment: María Elena Appiah WPtel: [address] [place] [address] ACUTE ILLNESS 05/20/2015 Patient Education: Patient Medication Summary Completed 05/20/2015 Patient Education: [facility] - [employer]aving [employer] - Cymbalta - 18-64 - Dynamic Portal ID Completed 05/20/2015 Appointment: María Elena Appiah WPtel: [address] [place] [address] BP CHECK 05/19/2015 Patient Education: Patient Medication Summary Completed 05/19/2015 Visit Plan: Topical Bactroban alternatin g with topical betamethasone Recheck 2weeks 05/10/2015 Appointment: María Elena Appiah WPtel: [address] [place] [address] 05/07 vm cn...05/07 appt confirmed OFFICE SURGER Y 05/10/2015 Patient Education: Patient Medication Summary Completed 05/10/2015 Referral: Patrick Chandler WPtel: [address] [facility] [address] Referral Initiated 05/04/2015 Visit Plan: Saline nasal flushes prn. Ty lenol/Motrin prn headache. Notify if persists/symptoms worsening. Depomedrol 40mg IM today 03/16/2015 Appointment: María Elena Appiah WPtel: [address] [place] [address] ACUTE ILLNESS 03/16/2015 Patient Education: Patient Medication Summary Completed 03/16/2015 Appointment: María Elena Appiah WPtel: [address] [place] [address] ER Follow UP 03/09/2015 Visit Plan: Cryotherapy to lesions as ab ove 10/27/2014 Appointment: María Elena Appiah WPtel: [address] [place] [address] OFFICE SURGERY 10/27/2014 Patient Education: Patient Medication Summary Completed 10/27/2014 Appointment: June Flores WPtel: [address] [place] [address] ACUTE ILLNESS 09/11/2014 Patient Education: Patient Medication Summary Completed 09/11/2014 Visit Plan: Lab discussed Lipitor 10mg d aily Coenzyme Q-10 400mg daily Vitamin D3 5000u daily Recheck lipids with LFTs in 3mos then fwup 08/31/2014 Appointment: María Elena Appiah WPtel: [address] [place] [address] 08/28 voicemail FOLLOW UP 08/31/2014 Patient Education: Patient Medication Summary Completed 08/31/2014 Appointment: María Elena Appiah WPtel: [address] [place] [address] [place] LAB 08/27/2014 Appointment: María Elena Appiah WPtel: [address] [place] [address] US LAB 08/27/2014 Patient Education: Patient Medication Summary Completed 08/27/2014 Appointment: María Elena Appiah WPtel: [address] [place] [address] ACUTE ILLNESS 07/23/2014 Appointment: María Elena Appiah WPtel: [address] [place] [address] ACUTE ILLNESS 07/21/2014 Patient Education: Patient Medication Summary Completed 07/21/2014 Visit Plan: Kenalog 40mg IM today Contin ue narendra and singulair Add Flonase 07/15/2014 Appointment: María Elena Appiah WPtel: [address] [place] [address] ACUTE ILLNESS 07/15/2014 Appointment: María Elena Appiah WPtel: [address] [place], [place] [phone] ACUTE ILLNESS 07/15/2014 Patient Education: Patient Medication Summary Completed 07/15/2014 Visit Plan: Will do metolazone 2.5mg prn with 6 potassium and see if causes as severe cramping Trial of of seroquel XR 50mg q PM with evening meal and let us know how works 05/18/2014 Appointment: María Elena Appiah WPtel: [address] [place], [place] [phone] 05/15 left message FOLLOW UP 05/18/2014 Patient Education: Patient Medication Summary Completed 05/18/2014 Appointment: María Elena Appiah WPtel: [address] [place], [place] [phone] [place] LAB 05/14/2014 Patient Education: Patient Medication Summary Completed 05/14/2014 Appointment: María Elena Appiah WPtel: [address] [place], [place] [phone] [place] INJECTION 04/22/2014 Visit Plan: Tisha and Miranda today a nd finish abx given from urgent care 04/21/2014 Appointment: María Elena Appiah WPtel: [address] [place], [place] [phone] [place] INJECTION 04/21/2014 Patient Education: Patient Medication Summary Completed 04/21/2014 Appointment: June Flores WPtel: [address] [place], [place] [phone] ACUTE ILLNESS 03/04/2014 Patient Education: Patient Medication Summary Completed 03/04/2014 Appointment: María Elena Appiah WPtel: [address] [place], [place] [phone] [place] INJECTION 02/27/2014 Patient Education: Patient Medication Summary Completed 02/27/2014 Visit Plan: Cryotherapy as above to all lesions Patient wants to try no meds for insomnia for a while and see how goes 01/13/2014 Appointment: María Elena Appiahtel: [address] [place] [address] OFFICE SURGERY 01/13/2014 Patient Education: Patient Medication Summary Completed 01/13/2014 Visit Plan: Stop Melatonin Stop Soma Tri al of trazadone 75mg q HS See ENT for possible tubes as has had chronic ETD and serous otitis media with numerous steroids 12/24/2013 Appointment: María Elena Appiah WPtel: [address] [place] [address] ACUTE ILLNESS 12/24/2013 Patient Education: Patient Medication Summary Completed 12/24/2013 Visit Plan: Saline nasal flushes prn. Ty lenol/Motrin prn headache. Notify if persists/symptoms worsening. 11/12/2013 Appointment: María Elena Appiah WPtel: [address] [place] [address] ACUTE ILLNESS 11/12/2013 Patient Education: Patient Medication Summary Completed 11/12/2013 Appointment: María Elena Appiah WPtel: [address] [place] [address] ACUTE ILLNESS 10/21/2013 Patient Education: Patient Medication Summary Completed 10/21/2013 Visit Plan: Sleep hygiene and sleep rout ine Melatonin 10mg q HS Support stockings and observe 09/22/2013 Appointment: María Elena Appiah WPtel: [address] [place] [address] ACUTE ILLNESS 09/22/2013 Patient Education: Patient Medication Summary Completed 09/22/2013 Appointment: June Flores WPtel: [address] [place] [address] ACUTE ILLNESS 08/27/2013 Patient Education: Patient Medication Summary Completed 08/27/2013 Visit Plan: Proceed with CT scan of head /neck Proceed with occipital nerve injections Butrans 20mcg patch weekly until can get into see Dr. Mcdonough for injections 08/04/2013 Appointment: María Elena Appiah WPtel: [address] [place] [address] FOLLOW UP 08/04/2013 Patient Education: Patient Medication Summary Completed 08/04/2013 Visit Plan: OMT done Daily neck stretche s, moist heat Increase Celebrex to 200mg BID Add flexeril 07/23/2013 Appointment: María Elena Appiah WPtel: [address] [place] [address] 07/22 voicemail FOLLOW UP 07/23/2013 Patient Education: Patient Medication Summary Completed 07/23/2013 Appointment: María Elena Appiah WPtel: [address] [place] [address] ACUTE ILLNESS 06/23/2013 Patient Education: Patient Medication Summary Completed 06/23/2013 Appointment: María Elena Appiah WPtel: [address] [place] [address] ACUTE ILLNESS 05/26/2013 Patient Education: Patient Medication Summary Completed 05/26/2013 Visit Plan: Decrease clonidine to 0.1mg TID If BP remains stable consider decreasing amlodopine Prednisone for 5 days BP check in 1mo 04/16/2013 Appointment: María Elena Appiah WPtel: [address] [place] [address] 04/14 pt called and confirmed appt FOLLOW UP 04/16/2013 Patient Education: Patient Medication Summary Completed 04/16/2013 Appointment: María Elena Appiah WPtel: [address] [place] [address] ACUTE ILLNESS 03/05/2013 Patient Education: Patient Medication Summary Completed 03/05/2013 Visit Plan: Pt has MARIA ELENA on with Dr. Sharonda Matthews patch Refill Hydrocodone early tomorrow 12/23/2012 Appointment: María Elena Appiah WPtel: [address] [place] [address] FOLLOW UP 12/23/2012 Patient Education: Patient Medication Summary Completed 12/23/2012 Appointment: Lashawn Eckert WPtel: [address] [place] [address] ACUTE ILLNESS 12/16/2012 Patient Education: Patient Medication Summary Completed 12/16/2012 Visit Plan: Proceed with updated MRI of LS spine Continue gabapentin and add soma and diclofenac Will likely need to go for another epidural 12/09/2012 Appointment: María Elena Appiah WPtel: [address] [place] [address] ACUTE ILLNESS 12/09/2012 Patient Education: Patient Medication Summary Completed 12/09/2012 Visit Plan: Injection as above Finish me drol dose pack Chiropracter this afternoon 12/04/2012 Appointment: María Elena Appiah WPtel: [address] [place] [address] ACUTE ILLNESS 12/04/2012 Patient Education: Patient Medication Summary Completed 12/04/2012 Appointment: Mary Tillman WPtel: [address] [place] [address] FOLLOW UP 11/22/2012 Patient Education: Patient Medication Summary Completed 11/22/2012 Appointment: María Elena Appiah WPtel: [address] [place] [address] ACUTE ILLNESS 11/21/2012 Patient Education: Patient Medication Summary Completed 11/21/2012 Appointment: María Elena Appiah WPtel: [address] [place] [address] BP CHECK 11/07/2012 Patient Education: Patient Medication [...] re-check. 10/29/2012 Appointment: Lashawn Eckert WPtel: [address] [place], [place] [phone] [place] ACUTE ILLNESS 10/29/2012 Patient Education: Patient Medication Summary Completed 10/29/2012 Appointment: María Elena Appiah WPtel: [address] [place] [address] ACUTE ILLNESS 10/14/2012 Patient Education: Patient Medication Summary Completed 10/14/2012 Appointment: María Elena Appiah WPtel: [address] [place] [address] UA 09/27/2012 Patient Education: Patient Medication Summary Completed 09/27/2012 Appointment: María Elena Appiah WPtel: [address] [place] [address] ACUTE ILLNESS 09/25/2012 Patient Education: Patient Medication Summary Completed 09/25/2012 Appointment: María Elena Appiah WPtel: [address] [place] [address] BP CHECK 09/24/2012 Appointment: María Elena Appiah WPtel: [address] [place] [address] ACUTE ILLNESS 08/29/2012 Patient Education: Patient Medication Summary Completed 08/29/2012 Visit Plan: Cryotherapy as above See Karlos m for right ear lesion--probable MOHs procedure Increase amlodopine to 10mg daily 08/12/2012 Appointment: María Elena Appiah WPtel: [address] [place] [address] OFFICE SURGERY 08/12/2012 Patient Education: Patient Medication Summary Completed 08/12/2012 Appointment: María Elena Appiah WPtel: [address] [place] [address] 05/03 vm on pt phone...pt called on 04/11 3 pt called wanting in had no one cancel so could not get her in for an appt sooner than 05/06. ACUTE ILLNESS 05/06/2012 Patient Education: Patient Medication Summary Completed 05/06/2012 Visit Plan: Pt wants to hold on any furt her sleep medications 04/03/2012 Appointment: María Elena Appiah WPtel: [address] [place] [address] FOLLOW UP 04/03/2012 Patient Education: Patient Medication Summary Completed 04/03/2012 Appointment: María Elena Appiah WPtel: [address] [place] [address] FOLLOW UP 03/19/2012 Patient Education: Patient Medication Summary Completed 03/19/2012 Appointment: María Elena Appiah WPtel: [address] [place] [address] BP CHECK 02/22/2012 Patient Education: Patient Medication Summary Completed 02/22/2012 Appointment: María Elena Appiah WPtel: [address] [place] [address] BP CHECK 02/21/2012 Patient Education: Patient Medication Summary Completed 02/21/2012 Visit Plan: Doxycycline and bactroban fo r foot Supportive care on ankles and knees Add norvasc for BP 02/20/2012 Appointment: María Elena Appiah WPtel: [address] [place] [address] ER Follow UP 02/20/2012 Patient Education: Patient Medication Summary Completed 02/20/2012 Appointment: María Elena Appiah WPtel: [address] [place] [address] ACUTE ILLNESS 01/30/2012 Patient Education: Patient Medication Summary Completed 01/30/2012 Appointment: María Elena Appiah WPtel: [address] [place] [address] ACUTE ILLNESS 01/24/2012 Patient Education: Patient Medication Summary Completed 01/24/2012 Visit Plan: Daily back stretches, moist heat, Biofreeze prn OMT done 01/10/2012 Appointment: María Elena Appiah WPtel: [address] [place] [address] ACUTE ILLNESS 01/10/2012 Patient Education: Patient Medication Summary Completed 01/10/2012 Appointment: María Elena Appiahtel: [address] [place] [address] FOLLOW UP 12/11/2011 Patient Education: Patient Medication Summary Completed 12/11/2011 Appointment: María Elena Appiahtel: [address] [place] [address] ACUTE ILLNESS 11/09/2011 Patient Education: Patient Medication Summary Completed 11/09/2011 Appointment: María Elena Appiahtel: [address] [place] [address] ACUTE ILLNESS 09/13/2011 Patient Education: Patient Medication Summary Completed 09/13/2011 Visit Plan: Check CBC, TSH, Free T4, CMP , ESR, Vit D, B12 now Start Prednisone today 08/31/2011 Appointment: María Elena Appiahtel: [address] [place] [address] ACUTE ILLNESS 08/31/2011 Patient Education: Patient Medication Summary Completed 08/31/2011 Appointment: María Elena Appiahtel: [address] [place] [address] [place] INJECTION 07/20/2011 Patient Education: Patient Medication Summary Completed 07/20/2011 Visit Plan: Continue current meds Monite r BP Cont stretches from PT 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 07/06/2011 Appointment: María Elena Appiahtel: [address] [place] [address] FOLLOW UP 07/06/2011 Patient Education: Patient Medication Summary Completed 07/06/2011 Appointment: María Elena Appiahtel: [address] [place] [address] [place] BP CHECK 06/06/2011 Patient Education: Patient Medication Summary Completed 06/06/2011 Visit Plan: Add Bystolic at 2.5mg QAM Ad d Robaxin 750mg 2 po q HS BP check in 2wks 05/22/2011 Appointment: María Elena Appiah WPtel: [address] [place] [address] FOLLOW UP 05/22/2011 Patient Education: Patient Medication Summary Completed 05/22/2011 Appointment: María Elena Appiah WPtel: [address] [place] [address] ER Follow UP 05/09/2011 Patient Education: Patient Medication Summary Completed 05/09/2011 Appointment: María Elena Appiah WPtel: [address] [place] [address] FOLLOW UP 02/22/2011 Visit Plan: Rx written for Hydrocodone 1 0/325mg #240 See Ortho 02/14/2011 Appointment: María Elena Appiah WPtel: [facility] [address] OMT 02/14/2011 Patient Education: Patient Medication [...] work. 02/03/2011 Appointment: Lashawn Eckert WPtel: [phone] [id number] ACUTE ILLNESS 02/03/2011 Patient Education: Patient Medication Summary Completed 02/03/2011 Visit Plan: OMT done Cont daily stretche s 01/31/2011 Appointment: María Elena Appiah WPtel: [address] [place] [address] ACUTE ILLNESS 01/31/2011 Patient Education: Patient Medication Summary Completed 01/31/2011 Visit Plan: Continue pain meds OMT done Proceed with PT No work this summer01/25/2011 Appointment: María Elena Appiah WPtel: [address] [place] [address] ACUTE ILLNESS 01/25/2011 Patient Education: Patient Medication Summary Completed 01/25/2011 Visit Plan: Start PT Long discussion abo ut getting pain meds from only us and can only have max of 4grams of tylenol per day Change to Hydrocodone 10/325mg 1- 2 po TID prn pain--#180 called to Radha 01/18/2011 Appointment: María Elena Appiah WPtel: [address] [place] [address] FOLLOW UP 01/18/2011 Patient Education: Patient Medication Summary Completed 01/18/2011 Visit Plan: Daily back stretches, moist heat, Biofreeze prn 11/29/2010 Appointment: María Elena Appiah WPtel: [address] [place] [address] ER Follow UP 11/29/2010 Patient Education: Patient Medication Summary Completed 11/29/2010 Visit Plan: Saline nasal flushes prn. Ty lenol/Motrin prn headache. Notify if persists/symptoms worsening. Finish augmentin Add Medrol Dose Pack 10/10/2010 Appointment: María Elena Appiah WPtel: [address] [place] [address] ACUTE ILLNESS 10/10/2010 Patient Education: Patient Medication Summary Completed 10/10/2010 Visit Plan: Cryotherapy x3 to multiple l esions on both forearms 07/19/2010 Appointment: María Elena Appiah WPtel: [address] [place] [address] OFFICE SURGERY 07/19/2010 Patient Education: Patient Medication Summary Completed 07/19/2010 Appointment: María Elena Appiah WPtel: [address] [place] [address] [place] BP CHECK 07/06/2010 Patient Education: Patient Medication Summary Completed 07/06/2010 Appointment: María Elena Appiah WPtel: [phone] [place], [place] [id number] [place] BP CHECK 06/30/2010 Patient Education: Patient Medication Summary Completed 06/30/2010 Appointment: María Elena Appiah WPtel: [address] [place] [address] BP CHECK 06/20/2010 Patient Education: Patient Medication Summary Completed 06/20/2010 Visit Plan: Change Diovan to Exforge 160 /5mg QD OMT done to thoracics BP check in 2wks 06/07/2010 Appointment: María Elena Appiah WPtel: [address] [place] [address] FOLLOW UP 06/07/2010 Patient Education: Patient Medication Summary Completed 06/07/2010 Appointment: María Elena Appiah WPtel: [address] [place] [address] BP CHECK 06/03/2010 Patient Education: Patient Medication Summary Completed 06/03/2010 Appointment: María Elena Appiah WPtel: [address] [place] [address] BP CHECK 06/01/2010 Patient Education: Patient Medication Summary Completed 06/01/2010 Visit Plan: Irritated skin tags to left neck x2 excised at base with scissors and base cauterized 05/30/2010 Appointment: María Elena Appiah WPtel: [address] [place] [address] OFFICE SURGERY 05/30/2010 Patient Education: Patient Medication Summary Completed 05/30/2010 Visit Plan: Saline nasal flushes prn. Ty lenol/Motrin prn headache. Notify if persists/symptoms worsening. Restart Nasonex Has allergy testing set for May 25 04/27/2010 Appointment: María Elena Appiah WPtel: [address] [place] [address] ACUTE ILLNESS 04/27/2010 Patient Education: Patient Medication Summary Completed 04/27/2010 Visit Plan: Saline nasal flushes prn. Ty lenol/Motrin prn headache. Notify if persists/symptoms worsening. Omnaris BID plus injections 04/05/2010 Appointment: María Elena Appiah WPtel: [address] [place] [address] ACUTE ILLNESS 04/05/2010 Patient Education: Patient Medication Summary Completed 04/05/2010 Visit Plan: Saline nasal flushes prn. Ty lenol/Motrin prn headache. Notify if persists/symptoms worsening. 03/09/2010 Appointment: María Elena Appiah WPtel: [address] [place] [address] ACUTE ILLNESS 03/09/2010 Patient Education: Patient Medication Summary Completed 03/09/2010 Visit Plan: Cont Clonidine as is Cont Pr emarin Fwup with surgery as scheduled 03/03/2010 Appointment: María Elena Appiahtel: [address] [place] [address] FOLLOW UP 03/03/2010 Patient Education: Patient Medication Summary Completed 03/03/2010 Visit Plan: Check Pelvic US now Chelsey Sal C vs Hysterectomy 01/17/2010 Appointment: María Elena Appiahtel: [address] [place] [address] ACUTE ILLNESS 01/17/2010 Patient Education: Patient Medication Summary Completed 01/17/2010 Visit Plan: Check fasting lab and schedu le Mammogram 2gm Na Diet Trial of Ambien 10mg qhs Fwup pending lab results 12/27/2009 Appointment: María Elena Appiah WPtel: [address] [place] [address] ESTABLISHED PATIENT 12/27/2009 Patient Education: Patient Medication Summary Completed 12/27/2009 Referral: Canelo Overton WPtel: [phone] [id number] [place] Referral Initiated Referral: Philipp Flores WPtel: [address] [id number] [place] Referral Appointment Requested Instructions Comment . [...]
--- OUTSIDE RECORDS SUMMARY | 2020-03-13 05:33 | XMS REPORT | CCD ---
Author Author Gale Appiah D.O. Organization [facility] [place] Address [address] [place] [id number] Phone Care Team Providers Care Bilingual Recruiter Name Role Phone María Elena Appiah D.O., PP Unavailable CCM Unavailable Summary Purpose Interface Exchange Insurance Providers Payer name Policy type / Coverage type Covered libertarian ID Effective Begin Date Effective End Date [facility] Commercial Insurance [id number] Unknown Family History Family History data not found Social History Social History Element Codes Description Effective Dates Tobacco history SNOMED CT: 232128266 Never smoker 05/22/2011 Allergies, Adverse Reactions, Alerts Substance Reaction Codes Entered Date Inactivated Date Status * NO KNOWN FOOD ALLERGIES Unknown 12/27/2009 No Inactiv e Date Active _ Unknown 03/10/2013 No Inactive Date Active _ Unknown 12/27/2009 No Inactive Date Active SULFA (SULFONAMIDE ANTIBIOTICS) Unknown 12/27/2009 No I nactive Date Active Problems Condition Codes Effective Dates Condition Status Ingrowing nail ICD-9: 703.0 ICD-10: L60.0 08/29/2017 Active Type 2 diabetes mellitus with hyperglycemia ICD-9: 250 .02 ICD-10: E11.65 12/18/2017 Active Essential hypertension ICD-9: 401.9 ICD-10: I10 [...] Fill Instructions cyclobenzaprine 10 mg tablet RxNorm: 960836 TAKE ONE TA BLET BY MOUTH THREE TIMES A DAY NEEDED FOR MUSCLE SPASMS 11/17/2019 No Stop Date Active doxepin 25 mg capsule RxNorm: 8368391 TAKE ONE CAPSULE B Y MOUTH EVERY NIGHT AT BEDTIME NEEDED FOR SLEEP 11/16/2019 No Stop Date Active Klor-Con 8 mEq tablet,extended release RxNorm: 270397 T FARRUKH ONE TABLET BY MOUTH TWICE A DAY 11/16/2019 No Stop Date Active hydrocodone 10 mg-acetaminophen 325 mg tablet RxNorm: 038175 1-2 Tablet(s) Oral three times a day as needed for pain 11/10/2019 No Stop Date Active cyclobenzaprine 10 mg tablet RxNorm: 469625 TAKE ONE TA BLET BY MOUTH THREE TIMES A DAY NEEDED FOR MUSCLE SPASMS 10/23/2019 11/16/2019 Inactive duloxetine 60 mg capsule,delayed release RxNorm: 847552 1 Capsu le(s) Oral QD 10/17/2019 04/13/2020 Active celecoxib 200 mg capsule RxNorm: 695163 1 Capsule(s) Or al two times a day as needed for pain 10/17/2019 01/14/2020 Active lisinopril 20 mg tablet RxNorm: 987765 1 Tablet(s) Oral QD 10/17/19 20 04/13/2020 Active gabapentin 300 mg capsule RxNorm: 639373 1 Capsule(s) O ral every night at bedtime 10/17/2019 01/15/2020 Active Singulair 10 mg tablet RxNorm: 184314 1 Tablet(s) Oral QD 10/17/2019 04/14/2020 Active metoprolol tartrate 100 mg tablet RxNorm: 166652 1 Tabl et(s) Oral two times a day 10/17/2019 04/13/2020 Active clonidine HCl 0.1 mg tablet RxNorm: 272050 1 Tablet(s) Oral fou r times a day 10/17/2019 04/13/2020 Active Januvia 100 mg tablet RxNorm: 764164 1 Tablet(s) Oral QD 10/17/2019 No Stop Date Active Lipitor 10 mg tablet RxNorm: 702080 1 Tablet(s) Oral QD 10/17/2019 Active Steglatro 15 mg tablet RxNorm: 2970819 1 Tablet(s) Oral QD 10/17/19 No Stop Date Active Klor-Con 8 mEq tablet,extended release RxNorm: 499420 1 Tablet(s) Oral two times a day 10/17/2019 11/15/2019 Inactive Glyxambi 25 mg-5 mg tablet RxNorm: 6905873 1 Tablet(s) Oral QD 01/202010/16/2019 Inactive Patient will bring in copay discount card as well Glyxambi 25 mg-5 mg tablet RxNorm: 1313640 1 Tablet(s) Oral QD 01/202010/14/2019 Inactive Patient will bring in copay discount card as well Keflex 500 mg capsule RxNorm: 400146 1 Capsule(s) Oral two time s a day 10/07/2019 10/14/2019 Inactive Premarin 1.25 mg tablet RxNorm: 507917 1 Tablet(s) Oral QD 09/30/1906/25/2020 Active hydrocodone 10 mg-acetaminophen 325 mg tablet RxNorm: 350726 1-2 Tablet(s) Oral three times a day as needed for pain 09/30/2019 09/30/2019 Inactive baclofen 10 mg tablet RxNorm: 241718 TAKE ONE TABLET BY MOUTH THREE TIMES A DAY NEEDED 09/19/2019 No Stop Date Active gabapentin 300 mg capsule RxNorm: 842627 TAKE ONE CAPSU LE BY MOUTH EVERY NIGHT AT BEDTIME 09/19/2019 10/16/2019 Inactive Klor-Con 8 mEq tablet,extended release RxNorm: 078357 T FARRUKH ONE TABLET BY MOUTH TWICE A DAY 1 Tablet(s) Oral two times a day 09/19/2019 10/16/2019 Endeavor [address]ive hydrocodone 10 mg-acetaminophen 325 mg tablet RxNorm: 350566 1-2 Tablet(s) Oral three times a day as needed for pain 09/19/2019 09/29/2019 Inactive triamterene 75 mg-hydrochlorothiazide 50 mg tablet RxNorm: 3 79691 TAKE ONE TABLET BY MOUTH DAILY 09/11/2019 No Stop Date Active allopurinol 300 mg tablet RxNorm: 540082 TAKE ONE TABLET BY LOPEZ TH DAILY 09/11/2019 No Stop Date Active duloxetine 60 mg capsule,delayed release RxNorm: 112312 TAKE ONE CAPSULE BY MOUTH DAILY 09/11/2019 10/16/2019 Inactive Lipitor 10 mg tablet RxNorm: 750831 TAKE ONE TABLET BY MOUTH AT BEDTIME 09/11/2019 10/16/2019 Inactive lisinopril 20 mg tablet RxNorm: 372192 TAKE ONE TABLET BY MOUTH DAILY .... THIS REPLACE 10MG TABLETS 09/11/2019 10/16/2019 Inactive celecoxib 200 mg capsule RxNorm: 363580 TAKE ONE CAPSUL E BY MOUTH TWICE A DAY NEEDED FOR PAIN 09/11/2019 10/16/2019 Inactive clonidine HCl 0.1 mg tablet RxNorm: 257351 TAKE ONE TAB LET BY MOUTH FOUR TIMES A DAY 09/11/2019 10/16/2019 Inactive doxepin 25 mg capsule RxNorm: 1321800 1 Capsule(s) Oral every night at bedtime as needed for sleep 08/21/2019 11/15/2019 Inactive hydrocodone 10 mg-acetaminophen 325 mg tablet RxNorm: 588439 1-2 Tablet(s) PO TID 08/12/2019 09/29/2019 Inactive as needed for pa in - Previous quantity #240, will start dosing for #180 in April 2011 per Doctor Td. Medrol (Dustin) 4 mg tablets in a dose pack RxNorm: 994382 Tablet(s) Oral As Directed 07/21/2019 09/29/2019 Inactive Premarin 1.25 mg tablet RxNorm: 709761 1 Tablet(s) Oral QD 07/02/20 19 09/29/2019 Inactive hydrocodone 10 mg-acetaminophen 325 mg tablet RxNorm: 837738 1-2 Tablet(s) PO TID 07/01/2019 08/11/2019 Inactive as needed for pa in - Previous quantity #240, will start dosing for #180 in April 2011 per Doctor Td. gabapentin 300 mg capsule RxNorm: 789337 1 Capsule(s) PO QHS 201809/18/2019 Inactive celecoxib 200 mg capsule RxNorm: 058159 1 Capsule(s) Or al two times a day as needed for pain 06/27/2019 06/27/2019 Inactive furosemide 40 mg tablet RxNorm: 726552 TAKE ONE TABLET BY MOUTH EVERY MORNING NEEDED FOR EDEMA . TAKE WITH POTASSIUM 06/24/2019 No Stop Date Active doxepin 25 mg capsule RxNorm: 3667836 TAKE ONE CAPSULE B Y MOUTH EVERY NIGHT AT BEDTIME NEEDED FOR SLEEP 06/24/2019 08/20/2019 Inactive Singulair 10 mg tablet RxNorm: 790081 TAKE ONE TABLET BY MOUTH JOSÉ Y 06/24/2019 10/16/2019 Inactive lisinopril 20 mg tablet RxNorm: 516057 TAKE ONE TABLET BY MOUTH DAILY .... THIS REPLACE 10MG TABLETS 06/24/2019 09/10/2019 Inactive nystatin-triamcinolone 100,000 unit/g-0.1 % topical cream Rx Norm: 2908105 1 Application Topical two times a day 06/12/2019 06/19/2019 Inactive apply BID for 1 week nystatin-triamcinolone 100,000 unit/g-0.1 % topical cream Rx Norm: 7838916 1 Application Topical two times a day 06/12/2019 06/11/2019 Inactive apply BID for 1 week hydrocodone 10 mg-acetaminophen 325 mg tablet RxNorm: 792603 1-2 Tablet(s) PO QID as needed for pain MUST LAST 30 DAYS 05/28/2019 06/26/2019 Inactiv e (Response to an electronic controlled substance refill request - RxReferenceNumber: [id number]) baclofen 20 mg tablet RxNorm: 176263 1 Tablet(s) PO TID as needed for muscle spasm 05/19/2019 05/27/2019 Inactive gabapentin 300 mg capsule RxNorm: 440001 1 Capsule(s) PO QHS 201805/27/2019 Inactive lisinopril 20 mg tablet RxNorm: 507050 1 Tablet(s) PO Q D TAKE ONE TABLET BY MOUTH DAILY, REPLACES 10 MG DOSE 05/19/2019 06/23/2019 Inactive doxepin 25 mg capsule RxNorm: 7641305 TAKE ONE CAPSULE B Y MOUTH EVERY NIGHT AT BEDTIME NEEDED FOR SLEEP 05/16/2019 06/14/2019 Inactive lisinopril 20 mg tablet RxNorm: 351220 TAKE ONE TABLET BY MOUTH DAILY, REPLACES 10 MG DOSE 05/16/2019 05/18/2019 Inactive Singulair 10 mg tablet RxNorm: 063578 TAKE ONE TABLET BY MOUTH JOSÉ Y 05/16/2019 06/14/2019 Inactive gabapentin 300 mg capsule RxNorm: 054024 1 Capsule(s) PO QHS 201805/04/2019 Inactive estropipate 1.5 mg tablet RxNorm: 512345 1 Tablet(s) PO QD 05/05/2005/27/2019 Inactive estropipate 1.5 mg tablet RxNorm: 396332 1 Tablet(s) PO QD 05/05/20 19 05/04/2019 Inactive gabapentin 300 mg capsule RxNorm: 384883 1 Capsule(s) PO QHS 201805/18/2019 Inactive hydrocodone 10 mg-acetaminophen 325 mg tablet RxNorm: 357144 1-2 Tablet(s) PO QID as needed for pain MUST LAST 30 DAYS 04/25/2019 05/24/2019 Inactiv e (Response to an electronic controlled substance refill request - RxReferenceNumber: [id number]) cyclobenzaprine 10 mg tablet RxNorm: 019992 TAKE ONE TA BLET BY MOUTH THREE TIMES A DAY NEEDED FOR MUSCLE SPASMS 04/24/2019 05/18/2019 Inactive metoprolol tartrate 100 mg tablet RxNorm: 088216 TAKE O NE TABLET BY MOUTH TWICE A DAY 04/24/2019 10/16/2019 Inactive Lyrica 75 mg capsule RxNorm: 139848 1 Capsule(s) PO QHS 03/25/2019 Inactive duloxetine 60 mg capsule,delayed release RxNorm: 925740 TAKE ONE CAPSULE BY MOUTH DAILY 03/21/2019 05/19/2019 Inactive triamterene 75 mg-hydrochlorothiazide 50 mg tablet RxNorm: 3 65447 TAKE ONE TABLET BY MOUTH DAILY 03/21/2019 05/19/2019 Inactive Klor-Con 8 mEq tablet,extended release RxNorm: 653990 T FARRUKH ONE TABLET BY MOUTH TWICE A DAY 03/21/2019 09/18/2019 Inactive Lipitor 10 mg tablet RxNorm: 855090 TAKE ONE TABLET BY MOUTH AT BEDTIME 03/21/2019 09/10/2019 Inactive clonidine HCl 0.1 mg tablet RxNorm: 510331 TAKE ONE TAB LET BY MOUTH FOUR TIMES A DAY 03/21/2019 05/19/2019 Inactive allopurinol 300 mg tablet RxNorm: 220012 TAKE ONE TABLET BY LOPEZ TH DAILY 03/21/2019 05/19/2019 Inactive hydrocodone 10 mg-acetaminophen 325 mg tablet RxNorm: 520830 1-2 Tablet(s) PO QID as needed for pain MUST LAST 30 DAYS 02/28/2019 03/29/2019 Inactiv e (Response to an electronic controlled substance refill request - RxReferenceNumber: [id number]) furosemide 40 mg tablet RxNorm: 026244 TAKE ONE TABLET BY MOUTH EVERY MORNING NEEDED FOR EDEMA . TAKE WITH POTASSIUM 02/21/2019 03/22/2019 Inactive cyclobenzaprine 10 mg tablet RxNorm: 889077 TAKE ONE TA BLET BY MOUTH THREE TIMES A DAY NEEDED FOR MUSCLE SPASMS 02/21/2019 04/21/2019 Inactive lisinopril 20 mg tablet RxNorm: 517069 TAKE ONE TABLET BY MOUTH DAILY, REPLACES 10 MG DOSE 02/21/2019 05/15/2019 Inactive doxepin 25 mg capsule RxNorm: 4893662 TAKE ONE CAPSULE B Y MOUTH EVERY NIGHT AT BEDTIME NEEDED FOR SLEEP 02/21/2019 05/15/2019 Inactive nystatin 100,000 unit/gram topical cream RxNorm: 521965 APPLY TO AFFECTED AREA(S) TWO TIMES A DAY 02/21/2019 03/22/2019 Inactive estradiol 1 mg tablet RxNorm: 230656 2 Tablet(s) PO QD replaces premarin 01/22/2019 05/04/2019 Inactive lisinopril 20 mg tablet RxNorm: 412828 TAKE ONE TABLET BY MOUTH DAILY, REPLACES 10 MG DOSE 01/20/2019 02/18/2019 Inactive cyclobenzaprine 10 mg tablet RxNorm: 961693 TAKE ONE TA BLET BY MOUTH THREE TIMES A DAY NEEDED FOR MUSCLE SPASMS 01/20/2019 02/18/2019 Inactive metoprolol tartrate 100 mg tablet RxNorm: 686100 TAKE O NE TABLET BY MOUTH TWICE A DAY 01/20/2019 02/18/2019 Inactive cyclobenzaprine 10 mg tablet RxNorm: 567419 TAKE ONE TA BLET BY MOUTH THREE TIMES A DAY NEEDED FOR MUSCLE SPASMS 12/19/2018 01/17/2019 Inactive lisinopril 20 mg tablet RxNorm: 204368 TAKE ONE TABLET BY MOUTH DAILY, REPLACES 10 MG DOSE 12/19/2018 01/17/2019 Inactive duloxetine 60 mg capsule,delayed release RxNorm: 842907 TAKE ONE CAPSULE BY MOUTH DAILY 12/19/2018 01/17/2019 Inactive Lipitor 10 mg tablet RxNorm: 306030 TAKE ONE TABLET BY MOUTH AT BEDTIME 12/19/2018 01/17/2019 Inactive cyclobenzaprine 10 mg tablet RxNorm: 345975 1 Tablet(s) PO TID as needed for muscle spasm 11/19/2018 12/18/2018 Inactive Singulair 10 mg tablet RxNorm: 520178 1 Tablet(s) PO QD 11/19/2018 Inactive lisinopril 20 mg tablet RxNorm: 847682 TAKE ONE TABLET BY MOUTH DAILY, REPLACES 10 MG DOSE 11/15/2018 12/18/2018 Inactive hydrocodone 10 mg-acetaminophen 325 mg tablet RxNorm: 621511 1-2 Tablet(s) PO QID as needed for pain MUST LAST 30 DAYS 11/13/2018 12/12/2018 Inactiv e (Response to an electronic controlled substance refill request - RxReferenceNumber: [id number]) nystatin 100,000 unit/gram topical cream RxNorm: 497435 APPLY TO AFFECTED AREA(S) TWO TIMES A DAY 10/23/2018 11/06/2018 Inactive lisinopril 20 mg tablet RxNorm: 142973 1 Tablet(s) PO QD replac es 10mg dose 10/18/2018 11/14/2018 Inactive hydrocodone 10 mg-acetaminophen 325 mg tablet RxNorm: 003255 1-2 Tablet(s) QID as needed for pain MUST LAST 30 DAYS 10/08/2018 11/06/2018 Inactive (Response to an electronic controlled substance refill request - RxReferenceNumber: [id number]) lisinopril 10 mg tablet RxNorm: 732587 1 Tablet(s) PO QD 10/03/2018 0 01/21/2019 Inactive Celebrex 200 mg capsule RxNorm: 736915 TAKE ONE CAPSULE BY MOUT H TWICE A DAY 09/30/2018 05/04/2019 Inactive cyclobenzaprine 10 mg tablet RxNorm: 557721 TAKE ONE TA BLET BY MOUTH THREE TIMES A DAY NEEDED FOR MUSCLE SPASMS 09/30/2018 11/18/2018 Inactive doxepin 25 mg capsule RxNorm: 2153489 TAKE ONE CAPSULE B Y MOUTH EVERY NIGHT AT BEDTIME NEEDED 09/05/2018 10/16/2018 Inactive omeprazole 40 mg capsule,delayed release RxNorm: 933381 TAKE ONE CAPSULE BY MOUTH DAILY 09/05/2018 01/21/2019 Inactive furosemide 40 mg tablet RxNorm: 473026 TAKE ONE TABLET BY MOUTH EVERY MORNING NEEDED FOR EDEMA . TAKE WITH POTASSIUM 09/05/2018 11/03/2018 Inactive phentermine 37.5 mg tablet RxNorm: 572275 1 Tablet(s) PO QAM 201701/21/2019 Inactive doxepin 25 mg capsule RxNorm: 9235966 1 Capsule(s) PO QH S as needed for sleep TAKE ONE CAPSULE BY MOUTH EVERY NIGHT AT BEDTIME NEEDED 08/27/2018 09/04/2018 Inactive Keflex 500 mg capsule RxNorm: 726443 1 Capsule(s) PO TID 08/09/2018 1 10/19/2017 Inactive Diflucan 100 mg tablet RxNorm: 867231 1 Tablet(s) PO QD 08/09/2018 Inactive Premarin 1.25 mg tablet RxNorm: 977032 2 Tablet(s) PO QD 08/09/2018 0 05/04/2019 Inactive Zofran ODT 4 mg disintegrating tablet RxNorm: 495787 1 Tablet(s) PO Q4H as needed for nausea 08/09/2018 01/21/2019 Inactive metoprolol tartrate 100 mg tablet RxNorm: 353111 TAKE O NE TABLET BY MOUTH TWICE A DAY 2018 10/04/2018 Inactive doxepin 25 mg capsule RxNorm: 1863248 TAKE ONE CAPSULE B Y MOUTH EVERY NIGHT AT BEDTIME NEEDED 2018 08/26/2018 Inactive cyclobenzaprine 10 mg tablet RxNorm: 399765 TAKE ONE TA BLET BY MOUTH THREE TIMES A DAY NEEDED FOR MUSCLE SPASMS 2018 09/29/2018 Inactive hydrocodone 10 mg-acetaminophen 325 mg tablet RxNorm: 737286 1-2 Tablet(s) QID as needed for pain MUST LAST 30 DAYS 07/29/2018 08/27/2018 Inactive (Response to an electronic controlled substance refill request - RxReferenceNumber: [id number]) nystatin 100,000 unit/gram topical powder RxNorm: 199525 Applic ation TOP BID 07/22/2018 08/04/2018 Inactive doxepin 25 mg capsule RxNorm: 2091479 1 Capsule(s) PO QHS as needed 07/22/2018 08/05/2018 Inactive triamterene 75 mg-hydrochlorothiazide 50 mg tablet RxNorm: 3 38808 TAKE ONE TABLET BY MOUTH DAILY 07/05/2018 10/02/2018 Inactive duloxetine 60 mg capsule,delayed release RxNorm: 095430 TAKE ONE CAPSULE BY MOUTH DAILY 07/05/2018 09/02/2018 Inactive Klor-Con 8 mEq tablet,extended release RxNorm: 324569 T FARRUKH ONE TABLET BY MOUTH TWICE A DAY 07/05/2018 10/02/2018 Inactive Lipitor 10 mg tablet RxNorm: 053177 TAKE ONE TABLET BY MOUTH AT BEDTIME 07/05/2018 09/02/2018 Inactive allopurinol 300 mg tablet RxNorm: 129187 TAKE ONE TABLET BY LOPEZ TH DAILY 07/05/2018 10/02/2018 Inactive clonidine HCl 0.1 mg tablet RxNorm: 579808 TAKE ONE TAB LET BY MOUTH FOUR TIMES A DAY 07/05/2018 10/02/2018 Inactive hydrocodone 10 mg-acetaminophen 325 mg tablet RxNorm: 772394 1-2 Tablet(s) QID as needed for pain MUST LAST 30 DAYS 06/28/2018 07/27/2018 Inactive (Response to an electronic controlled substance refill request - RxReferenceNumber: [id number]) MediHoney (calcium alginate-honey) 4" X 5" bandage RxNorm: 1 Application TOP QD 06/17/2018 06/26/2018 Inactive honey-hydrocolloid dressing 4" X 5" RxNorm: 1 Application TOP QD 06/17/2018 07/16/2018 Inactive furosemide 40 mg tablet RxNorm: 104871 TAKE ONE TABLET BY MOUTH EVERY MORNING NEEDED FOR EDEMA . TAKE WITH POTASSIUM 06/10/2018 07/09/2018 Inactive This is a refill request. hydrocodone 10 mg-acetaminophen 325 mg tablet RxNorm: 914197 1-2 Tablet(s) QID as needed for pain MUST LAST 30 DAYS 05/30/2018 06/27/2018 Inactive (Response to an electronic controlled substance refill request - RxReferenceNumber: [id number]) acyclovir 800 mg tablet RxNorm: 810717 1 Tablet(s) PO 5x day 201705/22/2018 Inactive Premarin 1.25 mg tablet RxNorm: 288137 1-2 Tablet(s) PO QD 05/15/20 18 07/13/2018 Inactive cyclobenzaprine 10 mg tablet RxNorm: 249226 1 Tablet(s) PO TID as needed for muscle spasm 05/09/2018 05/08/2018 Inactive Medrol (Dustin) 4 mg tablets in a dose pack RxNorm: 189074 Tablet(s) PO As Directed 05/02/2018 06/16/2018 Inactive hydrocodone 10 mg-acetaminophen 325 mg tablet RxNorm: 033103 1-2 Tablet(s) QID as needed for pain MUST LAST 30 DAYS 04/30/2018 05/29/2018 Inactive (Response to an electronic controlled substance refill request - RxReferenceNumber: [id number]) duloxetine 60 mg capsule,delayed release RxNorm: 433184 TAKE ONE CAPSULE BY MOUTH DAILY 04/16/2018 05/15/2018 Inactive Celebrex 200 mg capsule RxNorm: 788361 TAKE ONE CAPSULE BY MOUT H TWICE A DAY 04/16/2018 06/14/2018 Inactive Singulair 10 mg tablet RxNorm: 548016 TAKE ONE TABLET BY MOUTH JOSÉ Y 04/16/2018 11/19/2018 Inactive Lipitor 10 mg tablet RxNorm: 919726 TAKE ONE TABLET BY MOUTH AT BEDTIME 04/16/2018 05/15/2018 Inactive hydrocodone 10 mg-acetaminophen 325 mg tablet RxNorm: 519512 1-2 Tablet(s) QID as needed for pain MUST LAST 30 DAYS 03/29/2018 04/27/2018 Inactive (Response to an electronic controlled substance refill request - RxReferenceNumber: [id number]) cyclobenzaprine 10 mg tablet RxNorm: 221277 1 Tablet(s) PO TID as needed for muscle spasm 03/18/2018 05/09/2018 Inactive omeprazole 40 mg capsule,delayed release RxNorm: 521489 1 Capsu le(s) PO QD 02/26/2018 08/24/2018 Inactive hydrocodone 10 mg-acetaminophen 325 mg tablet RxNorm: 832296 1-2 Tablet(s) QID as needed for pain MUST LAST 30 DAYS 02/26/2018 03/27/2018 Inactive (Response to an electronic controlled substance refill request - RxReferenceNumber: [id number]) metoprolol tartrate 100 mg tablet RxNorm: 751608 1 Tablet(s) PO BID 02/18/2018 08/05/2018 Inactive Lyrica 75 mg capsule RxNorm: 246674 1 Capsule(s) PO QHS 01/30/2018 Inactive phentermine 37.5 mg tablet RxNorm: 688026 1 Tablet(s) PO QAM 201706/16/2018 Inactive hydrocodone 10 mg-acetaminophen 325 mg tablet RxNorm: 296732 1-2 Tablet(s) QID as needed for pain MUST LAST 30 DAYS 01/29/2018 02/25/2018 Inactive (Response to an electronic controlled substance refill request - RxReferenceNumber: [id number]) Klor-Con 8 mEq tablet,extended release RxNorm: 499894 1 Tablet( s) PO BID 01/14/2018 07/04/2018 Inactive allopurinol 300 mg tablet RxNorm: 540667 1 Tablet(s) PO QD 01/15/20 18 07/04/2018 Inactive Lipitor 10 mg tablet RxNorm: 757628 1 Tablet(s) PO QHS 01/14/201812/2017 Inactive triamterene 75 mg-hydrochlorothiazide 50 mg tablet RxNorm: 3 27460 1 Tablet(s) PO QD 01/14/2018 07/04/2018 Inactive hydrocodone 10 mg-acetaminophen 325 mg tablet RxNorm: 106976 1-2 Tablet(s) QID as needed for pain MUST LAST 30 DAYS 12/27/2017 01/25/2018 Inactive (Response to an electronic controlled substance refill request - RxReferenceNumber: [id number]) Onglyza 5 mg tablet RxNorm: 369995 1 Tablet(s) PO QD 12/18/201701/29 Inactive metformin 500 mg tablet RxNorm: 972873 1 Tablet(s) PO BID 12/11/2017 12/10/2017 Inactive metformin 500 mg tablet RxNorm: 395142 1 Tablet(s) PO BID 12/11/2017 12/17/2017 Inactive furosemide 40 mg tablet RxNorm: 029997 1 Tablet(s) PO Q AM prn edema--take with potassium 12/11/2017 06/08/2018 Inactive cyclobenzaprine 10 mg tablet RxNorm: 447886 1 Tablet(s) PO TID as needed for muscle spasm 12/11/2017 03/18/2018 Inactive hydrocodone 10 mg-acetaminophen 325 mg tablet RxNorm: 690790 1-2 Tablet(s) QID as needed for pain MUST LAST 30 DAYS 10/23/2017 11/21/2017 Inactive (Response to an electronic controlled substance refill request - RxReferenceNumber: [id number]) Lipitor 10 mg tablet RxNorm: 770615 1 Tablet(s) PO QHS 10/16/201703/2018 Inactive cyclobenzaprine 10 mg tablet RxNorm: 337305 1 Tablet(s) PO TID as needed for muscle spasm 10/09/2017 12/10/2017 Inactive hydroxyzine HCl 25 mg tablet RxNorm: 923353 1 Tablet(s) PO BID as needed for anxiety 09/20/2017 01/29/2018 Inactive Effexor XR 75 mg capsule,extended release RxNorm: 114859 1 Caps ule(s) PO QD 09/20/2017 01/29/2018 Inactive metoprolol tartrate 100 mg tablet RxNorm: 875852 1 Tablet(s) PO BID 08/20/2017 02/18/2018 Inactive baclofen 20 mg tablet RxNorm: 973712 1 Tablet(s) PO TID as needed for muscle spasm 08/20/2017 01/21/2019 Inactive clonidine HCl 0.1 mg tablet RxNorm: 134148 1 Tablet(s) PO QID 08/2005/16/2018 Inactive Seroquel 25 mg tablet RxNorm: 738245 1 Tablet(s) PO QHS 08/17/2017 Inactive Seroquel 25 mg tablet RxNorm: 762663 1 Tablet(s) PO QHS 08/17/2017 Inactive Diflucan 100 mg tablet RxNorm: 338330 TAKE ONE TABLET BY MOUTH JOSÉ Y 07/25/2017 08/07/2017 Inactive hydrocodone 10 mg-acetaminophen 325 mg tablet RxNorm: 283320 1-2 Tablet(s) QID as needed for pain MUST LAST 30 DAYS 07/19/2017 08/17/2017 Inactive (Response to an electronic controlled substance refill request - RxReferenceNumber: [id number]) clindamycin 300 mg capsule RxNorm: 006212 1 Capsule(s) PO TID 07/1907/28/2017 Inactive clotrimazole-betamethasone 1 %-0.05 % topical cream RxNorm: 162724 Application TOP BID to elbow rash 07/19/2017 06/16/2018 Inactive Singulair 10 mg tablet RxNorm: 557534 Tablet(s) TAKE ONE TABLET BY MOUTH DAILY 07/18/2017 04/13/2018 Inactive triamterene 75 mg-hydrochlorothiazide 50 mg tablet RxNorm: 3 61751 1 Tablet(s) PO QD 07/18/2017 01/14/2018 Inactive Celebrex 200 mg capsule RxNorm: 649093 Capsule(s) TAKE ONE CAPSULE BY MOUTH TWICE A DAY 07/18/2017 10/15/2017 Inactive hydrocodone 10 mg-acetaminophen 325 mg tablet RxNorm: 365469 1-2 Tablet(s) QID as needed for pain MUST LAST 30 DAYS 06/19/2017 07/18/2017 Inactive (Response to an electronic controlled substance refill request - RxReferenceNumber: [id number]) hydrocodone 10 mg-acetaminophen 325 mg tablet RxNorm: 712225 1-2 Tablet(s) QID as needed for pain MUST LAST 30 DAYS 06/19/2017 06/18/2017 Inactive (Response to an electronic controlled substance refill request - RxReferenceNumber: [id number]) baclofen 20 mg tablet RxNorm: 784728 1 Tablet(s) PO TID as needed for muscle spasm 06/18/2017 08/20/2017 Inactive Medrol (Dustin) 4 mg tablets in a dose pack RxNorm: 590368 Tablet(s) PO As Directed 06/05/2017 07/18/2017 Inactive omeprazole 40 mg capsule,delayed release RxNorm: 591343 1 Capsu le(s) PO QD 04/20/2017 10/16/2017 Inactive Premarin 1.25 mg tablet RxNorm: 091146 1-2 Tablet(s) PO QD 04/11/20 17 05/15/2018 Inactive duloxetine 60 mg capsule,delayed release RxNorm: 143090 1 Capsu le(s) PO QD 04/11/2017 09/19/2017 Inactive furosemide 40 mg tablet RxNorm: 838067 1 Tablet(s) PO Q AM prn edema--take with potassium 04/11/2017 12/11/2017 Inactive Klor-Con 8 mEq tablet,extended release RxNorm: 757911 1 Tablet( s) PO BID 04/11/2017 01/14/2018 Inactive Lipitor 10 mg tablet RxNorm: 926602 1 Tablet(s) PO QHS 04/11/201702/2018 Inactive amlodipine 5 mg-benazepril 20 mg capsule RxNorm: 656436 1 Capsu le(s) PO QD 04/11/2017 01/29/2018 Inactive allopurinol 300 mg tablet RxNorm: 940650 1 Tablet(s) PO QD 04/11/20 17 01/14/2018 Inactive clonidine HCl 0.1 mg tablet RxNorm: 195952 1 Tablet(s) PO QID 04/0508/19/2017 Inactive baclofen 20 mg tablet RxNorm: 519204 1 Tablet(s) PO TID as needed for muscle spasm 04/02/2017 06/18/2017 Inactive Premarin 1.25 mg tablet RxNorm: 953200 1-2 Tablet(s) PO QD 03/20/20 17 04/10/2017 Inactive hydrocodone 10 mg-acetaminophen 325 mg tablet RxNorm: 527414 1-2 Tablet(s) QID as needed for pain MUST LAST 30 DAYS 03/14/2017 01/21/2019 Inactive (Response to an electronic controlled substance refill request - RxReferenceNumber: [id number]) metoprolol tartrate 100 mg tablet RxNorm: 385685 1 Tablet(s) PO BID 02/12/2017 08/20/2017 Inactive hydrocodone 10 mg-acetaminophen 325 mg tablet RxNorm: 391851 1-2 Tablet(s) QID as needed for pain MUST LAST 30 DAYS 02/08/2017 03/09/2017 Inactive (Response to an electronic controlled substance refill request - RxReferenceNumber: [id number]) metoprolol tartrate 100 mg tablet RxNorm: 532638 TAKE O NE TABLET BY MOUTH TWICE A DAY 01/11/2017 02/12/2017 Inactive metoprolol tartrate 100 mg tablet RxNorm: 009054 1 Tablet(s) PO BID 12/18/2016 12/17/2016 Inactive metoprolol tartrate 100 mg tablet RxNorm: 621237 1 Tablet(s) PO BID 12/18/2016 01/10/2017 Inactive furosemide 40 mg tablet RxNorm: 589081 1 Tablet(s) PO Q AM prn edema--take with potassium 12/13/2016 02/10/2017 Inactive amitriptyline 100 mg tablet RxNorm: 150948 1 Tablet(s) PO QHS 11/2812/12/2016 Inactive baclofen 20 mg tablet RxNorm: 947828 1 Tablet(s) PO TID as needed for muscle spasm 11/14/2016 04/01/2017 Inactive triamterene 75 mg-hydrochlorothiazide 50 mg tablet RxNorm: 3 30552 1 Tablet(s) PO QD 11/14/2016 11/13/2016 Inactive metolazone 2.5 mg tablet RxNorm: 190347 TAKE ONE TABLET BY MOUTH DAILY NEEDED FOR EDEMA 11/14/2016 12/12/2016 Inactive triamterene 75 mg-hydrochlorothiazide 50 mg tablet RxNorm: 3 08317 1 Tablet(s) PO QD 11/14/2016 07/18/2017 Inactive amitriptyline 50 mg tablet RxNorm: 522205 TAKE ONE TABL ET BY MOUTH AT BEDTIME NEEDED FOR SLEEP 11/14/2016 11/27/2016 Inactive Cymbalta 60 mg capsule,delayed release RxNorm: 905271 1 Capsule (s) PO QHS 11/14/2016 12/12/2016 Inactive clonidine HCl 0.1 mg tablet RxNorm: 741694 1 Tablet(s) PO QID 11/1304/04/2017 Inactive amitriptyline 50 mg tablet RxNorm: 669487 1 Tablet(s) P O QHS as needed for sleep 11/01/2016 11/27/2016 Inactive duloxetine 60 mg capsule,delayed release RxNorm: 684704 TAKE ONE CAPSULE BY MOUTH DAILY 10/20/2016 01/17/2017 Inactive allopurinol 300 mg tablet RxNorm: 336796 TAKE ONE TABLET BY LOPEZ TH DAILY 10/20/2016 01/16/2017 Inactive Lyrica 75 mg capsule RxNorm: 515023 TAKE ONE CAPSULE BY MOUTH EVERY NIGHT AT BEDTIME 10/20/2016 12/10/2016 Inactive Klor-Con 8 mEq tablet,extended release RxNorm: 263143 T FARRUKH ONE TABLET BY MOUTH TWICE A DAY 10/20/2016 01/17/2017 Inactive Celebrex 200 mg capsule RxNorm: 892980 TAKE ONE CAPSULE BY MOUT H TWICE A DAY 10/20/2016 07/18/2017 Inactive Bystolic 10 mg tablet RxNorm: 555735 TAKE ONE TABLET BY MOUTH EVERY NIGHT AT BEDTIME 10/20/2016 12/17/2016 Inactive amlodipine 5 mg-benazepril 20 mg capsule RxNorm: 306224 TAKE ONE CAPSULE BY MOUTH EVERY NIGHT AT BEDTIME -- TO REPLACE AMLODOPINE 10/20/20162016 Inactive Lipitor 10 mg tablet RxNorm: 537353 TAKE ONE TABLET BY MOUTH EVERY NIGHT AT BEDTIME 10/20/2016 01/17/2017 Inactive alprazolam 0.5 mg tablet RxNorm: 369879 3 Tablet(s) PO QHS as needed for sleep/anxiety 09/20/2016 10/31/2016 Inactive Tamiflu 75 mg capsule RxNorm: 227649 1 Capsule(s) PO QD 09/19/2016 Inactive Lyrica 75 mg capsule RxNorm: 099621 1 Capsule(s) PO QHS 09/19/2016 Inactive prednisone 20 mg tablet RxNorm: 474667 1 Tablet(s) PO QD 08/10/2016 1 10/17/2015 Inactive doxycycline hyclate 100 mg capsule RxNorm: 8467117 1 Capsule(s) PO BID 08/10/2016 08/19/2016 Inactive Medrol (Dustin) 4 mg tablets in a dose pack RxNorm: 218358 Tablet(s) PO As Directed 07/31/2016 08/22/2016 Inactive Singulair 10 mg tablet RxNorm: 444103 TAKE ONE TABLET BY MOUTH JOSÉ Y 07/27/2016 07/18/2017 Inactive hydrocodone 10 mg-acetaminophen 325 mg tablet RxNorm: 786287 1-2 Tablet(s) QID as needed for pain MUST LAST 30 DAYS 07/26/2016 08/24/2016 Inactive (Response to an electronic controlled substance refill request - RxReferenceNumber: [id number]) alprazolam 0.5 mg tablet RxNorm: 392617 3 Tablet(s) PO QHS as needed for anxiety or sleep 07/26/2016 09/20/2016 Inactive clindamycin 300 mg capsule RxNorm: 187714 1 Capsule(s) PO TID 07/2007/29/2016 Inactive Diflucan 100 mg tablet RxNorm: 666481 1 Tablet(s) PO QD 07/20/2016 Inactive Levaquin 500 mg tablet RxNorm: 637028 1 Tablet(s) PO QD 07/17/2016 Inactive Levaquin 500 mg tablet RxNorm: 341747 1 Tablet(s) PO QD 07/10/2016 Inactive Levaquin 500 mg tablet RxNorm: 406427 1 Tablet(s) PO QD 07/10/2016 Inactive mupirocin 2 % topical ointment RxNorm: 249814 TOP Apply topically to affected areas twice daily 07/06/2016 09/18/2016 Inactive Singulair 10 mg tablet RxNorm: 591589 TAKE ONE TABLET BY MOUTH JOSÉ Y 06/21/2016 01/21/2019 Inactive alprazolam 0.5 mg tablet RxNorm: 277628 TAKE THREE TABL ETS BY MOUTH AT BEDTIME NEEDED FOR SLEEP OR STRESS 05/22/2016 06/20/2016 Inactive triamterene 75 mg-hydrochlorothiazide 50 mg tablet RxNorm: 3 56199 1 Tablet(s) PO QD 04/26/2016 10/21/2016 Inactive Premarin 1.25 mg tablet RxNorm: 656426 1-2 Tablet(s) PO QD 04/26/20 16 03/20/2017 Inactive Klor-Con 8 mEq tablet,extended release RxNorm: 304215 1 Tablet( s) PO BID 04/26/2016 10/19/2016 Inactive Celebrex 200 mg capsule RxNorm: 486341 1 Capsule(s) PO BID TAKE ONE CAPSULE BY MOUTH EVERY DAY 04/26/2016 10/19/2016 Inactive Lipitor 10 mg tablet RxNorm: 809188 1 Tablet(s) PO QHS 04/26/201605/2017 Inactive allopurinol 300 mg tablet RxNorm: 046040 1 Tablet(s) PO QD TAKE ONE TABLET BY MOUTH EVERY DAY 04/26/2016 10/19/2016 Inactive amlodipine 5 mg-benazepril 20 mg capsule RxNorm: 742352 1 Capsule(s) PO QHS replaces amlodopine 04/26/2016 10/19/2016 Inactive duloxetine 60 mg capsule,delayed release RxNorm: 102231 1 Capsu le(s) PO QD 04/26/2016 10/19/2016 Inactive Bystolic 10 mg tablet RxNorm: 789295 1 Tablet(s) PO QHS 04/26/2016 Inactive Singulair 10 mg tablet RxNorm: 943186 1 Tablet(s) PO QD TAKE ONE TABLET BY MOUTH DAILY 04/26/2016 06/20/2016 Inactive clonidine HCl 0.1 mg tablet RxNorm: 598738 1 Tablet(s) PO QID 04/2610/22/2016 Inactive hydrocodone 10 mg-acetaminophen 325 mg tablet RxNorm: 351405 1-2 Tablet(s) QID as needed for pain TAKE ONE TO TWO TABLETS BY MOUTH FOUR TIMES A DAY . MUST LAST 30 DAYS 03/31/2016 04/29/2016 Inactive (Response to an electronic controlled substance refill request - RxReferenceNumber: [id number]) Klor-Con 8 mEq tablet,extended release RxNorm: 740860 T FARRUKH ONE TABLET BY MOUTH TWICE A DAY 03/24/2016 09/29/2019 Inactive prednisone 20 mg tablet RxNorm: 758134 1 Tablet(s) PO QD 03/09/2016 0 03/08/2016 Inactive prednisone 20 mg tablet RxNorm: 720193 1 Tablet(s) PO QD 03/09/2016 0 03/13/2016 Inactive alprazolam 0.5 mg tablet RxNorm: 138293 3 Tablet(s) PO QHS as needed for sleep/stress 03/02/2016 01/21/2019 Inactive mupirocin 2 % topical ointment RxNorm: 477526 TOP twice daily to affected areas of face and neck 02/21/2016 04/25/2016 Inactive clonidine HCl 0.1 mg tablet RxNorm: 836684 TAKE ONE TAB LET BY MOUTH FOUR TIMES A DAY 02/15/2016 09/29/2019 Inactive clonidine HCl 0.1 mg tablet RxNorm: 469586 1 Tablet(s) PO QID 02/1404/25/2016 Inactive Premarin 1.25 mg tablet RxNorm: 644845 1-2 Tablet(s) PO QD 02/15/20 16 03/15/2016 Inactive Klor-Con 8 mEq tablet,extended release RxNorm: 940531 T FARRUKH ONE TABLET BY MOUTH TWICE A DAY 02/15/2016 03/15/2016 Inactive potassium chloride ER 20 mEq tablet,extended release(part/cr yst) RxNorm: 655120 2 Tablet(s) PO BID 02/15/2016 03/15/2016 Inactive Macrobid 100 mg capsule RxNorm: 575874 1 Capsule(s) PO BID 01/24/20 16 01/30/2016 Inactive prednisone 20 mg tablet RxNorm: 422615 Take 3tabs PO QD x 2 days, then 2 tabs PO QD x 2 days, then 1 tab PO QD x 2 days, then 1/2 tab PO QDy x 2 days 12/23/2015 04/25/2016 Inactive Klor-Con 8 mEq tablet,extended release RxNorm: 167522 T FARRUKH ONE TABLET BY MOUTH TWICE A DAY 12/20/2015 02/14/2016 Inactive alprazolam 1 mg tablet RxNorm: 488320 1 1/2 Tablet(s) PO QHS 201501/23/2016 Inactive nystatin 100,000 unit/gram topical cream RxNorm: 523930 APPLY TO AFFECTED AREA(S) TWO TIMES A DAY 11/30/2015 12/14/2015 Inactive Singulair 10 mg tablet RxNorm: 493148 TAKE ONE TABLET BY MOUTH JOSÉ Y 11/18/2015 04/25/2016 Inactive allopurinol 300 mg tablet RxNorm: 458000 1 Tablet(s) PO QD TAKE ONE TABLET BY MOUTH EVERY DAY 10/26/2015 04/22/2016 Inactive Singulair 10 mg tablet RxNorm: 779237 TAKE ONE TABLET BY MOUTH JOSÉ Y 10/26/2015 11/17/2015 Inactive duloxetine 60 mg capsule,delayed release RxNorm: 304558 1 Capsu le(s) PO QD 10/26/2015 04/22/2016 Inactive triamterene 75 mg-hydrochlorothiazide 50 mg tablet RxNorm: 3 03188 1 Tablet(s) PO QD 10/26/2015 11/14/2016 Inactive potassium chloride ER 20 mEq tablet,extended release(part/cr yst) RxNorm: 471034 2 Tablet(s) PO BID 10/26/2015 02/14/2016 Inactive Lipitor 10 mg tablet RxNorm: 716261 1 Tablet(s) PO QHS 10/26/2015 Inactive amlodipine 5 mg-benazepril 20 mg capsule RxNorm: 103020 1 Capsule(s) PO QHS replaces amlodopine 10/26/2015 04/22/2016 Inactive Bystolic 10 mg tablet RxNorm: 460470 1 Tablet(s) PO QHS 10/26/2015 Inactive amlodipine 5 mg-benazepril 20 mg capsule RxNorm: 567832 1 Capsule(s) PO QHS replaces amlodopine 10/06/2015 10/25/2015 Inactive amlodipine 5 mg tablet RxNorm: 055455 1 Tablet(s) PO QHS 09/30/2015 0 04/25/2016 Inactive metolazone 2.5 mg tablet RxNorm: 973025 TAKE ONE TABLET BY MOUTH DAILY NEEDED FOR EDEMA 09/30/2015 01/21/2019 Inactive duloxetine 60 mg capsule,delayed release RxNorm: 312600 1 Capsu le(s) PO QD 09/30/2015 10/25/2015 Inactive cephalexin 500 mg capsule RxNorm: 001149 1 Capsule(s) PO BID 201509/23/2015 Inactive mupirocin 2 % topical ointment RxNorm: 461827 TOP twice daily to affected areas of face and neck 09/14/2015 02/20/2016 Inactive baclofen 20 mg tablet RxNorm: 675816 1 Tablet(s) PO TID as needed for muscle spasm 09/01/2015 11/14/2016 Inactive clonidine HCl 0.1 mg tablet RxNorm: 509528 1 Tablet(s) PO QID 09/0102/14/2016 Inactive alprazolam 1 mg tablet RxNorm: 939094 1 1/2 Tablet(s) PO QHS 201409/09/2015 Inactive baclofen 20 mg tablet RxNorm: 060434 1 Tablet(s) PO TID as needed for muscle spasm 07/23/2015 09/01/2015 Inactive omeprazole 40 mg capsule,delayed release RxNorm: 162420 1 Capsu le(s) PO QD 07/23/2015 04/25/2016 Inactive alprazolam 1 mg tablet RxNorm: 143056 1 1/2 Tablet(s) PO QHS 201408/10/2015 Inactive Bystolic 10 mg tablet RxNorm: 963679 1 Tablet(s) PO BID 06/24/2015 Inactive allopurinol 300 mg tablet RxNorm: 347865 1 Tablet(s) PO QD TAKE ONE TABLET BY MOUTH EVERY DAY 06/23/2015 10/20/2015 Inactive alprazolam 1 mg tablet RxNorm: 523774 1 1/2 Tablet(s) PO QHS 201407/06/2015 Inactive clonidine HCl 0.1 mg tablet RxNorm: 139408 1 Tablet(s) PO QID 06/0209/01/2015 Inactive clonidine HCl 0.1 mg tablet RxNorm: 141588 1 Tablet(s) PO QID 06/0206/01/2015 Inactive Cymbalta 60 mg capsule,delayed release RxNorm: 385734 1 Capsule (s) PO QHS 06/02/2015 08/30/2015 Inactive Cymbalta 60 mg capsule,delayed release RxNorm: 068635 1 Capsule (s) PO QHS 06/02/2015 06/01/2015 Inactive clonidine HCl 0.1 mg tablet RxNorm: 325185 1 Tablet(s) PO TID 05/3106/01/2015 Inactive replaces 0.2mg dose metolazone 2.5 mg tablet RxNorm: 994168 TAKE ONE TABLET BY MOUTH DAILY NEEDED FOR EDEMA 05/21/2015 06/19/2015 Inactive Singulair 10 mg tablet RxNorm: 916845 TAKE ONE TABLET BY MOUTH JOSÉ Y 05/21/2015 10/17/2015 Inactive Cymbalta 30 mg capsule,delayed release RxNorm: 668478 1 Capsule (s) PO QHS 05/20/2015 11/14/2016 Inactive betamethasone valerate 0.1 % topical cream RxNorm: 099082 Appli cation TOP BID 05/10/2015 04/25/2016 Inactive Bactroban 2 % topical ointment RxNorm: 883948 Application TOP BID 0 05/10/2015 06/20/2015 Inactive baclofen 20 mg tablet RxNorm: 457313 1 Tablet(s) PO TID as needed 0 04/26/2015 07/23/2015 Inactive Lipitor 10 mg tablet RxNorm: 199397 1 Tablet(s) PO QHS 04/26/201508/2016 Inactive clonidine HCl 0.1 mg tablet RxNorm: 930509 1 Tablet(s) PO TID 04/2605/30/2015 Inactive replaces 0.2mg dose Klor-Con 8 mEq tablet,extended release RxNorm: 950258 1 Tablet( s) PO BID 04/26/2015 04/25/2016 Inactive metolazone 2.5 mg tablet RxNorm: 900099 1 Tablet(s) PO QD as ne eded for edema 04/26/2015 04/25/2015 Inactive triamterene 75 mg-hydrochlorothiazide 50 mg tablet RxNorm: 3 99517 1 Tablet(s) PO QD 04/26/2015 10/22/2015 Inactive Premarin 1.25 mg tablet RxNorm: 420928 1-2 Tablet(s) PO QD 04/26/20 15 10/22/2015 Inactive Bystolic 10 mg tablet RxNorm: 712680 1 Tablet(s) PO QAM TAKE ONE TABLET BY MOUTH EVERY MORNING 04/23/2015 06/23/2015 Inactive clonidine HCl 0.1 mg tablet RxNorm: 493481 1 Tablet(s) PO TID 03/2304/25/2015 Inactive replaces 0.2mg dose nystatin 100,000 unit/gram topical cream RxNorm: 459692 Applica tion TOP BID 03/23/2015 06/20/2015 Inactive baclofen 20 mg tablet RxNorm: 937122 1 Tablet(s) PO TID as needed 0 03/23/2015 04/25/2015 Inactive Premarin 1.25 mg tablet RxNorm: 099911 1-2 Tablet(s) PO QD 03/23/20 15 04/25/2015 Inactive Klor-Con 8 mEq tablet,extended release RxNorm: 378875 1 Tablet( s) PO BID 03/23/2015 04/25/2015 Inactive cefdinir 300 mg capsule RxNorm: 057695 2 Capsule(s) PO QD 03/16/2015 03/25/2015 Inactive baclofen 20 mg tablet RxNorm: 347599 1 Tablet(s) PO TID as needed 0 03/02/2015 03/22/2015 Inactive allopurinol 300 mg tablet RxNorm: 828468 1 Tablet(s) PO QD TAKE ONE TABLET BY MOUTH EVERY DAY 02/22/2015 05/22/2015 Inactive Klor-Con M20 mEq tablet,extended release RxNorm: 268208 2 Tablet(s) PO BID to use with lasix 02/22/2015 06/20/2015 Inactive clonidine HCl 0.1 mg tablet RxNorm: 834801 1 Tablet(s) PO TID 02/1903/22/2015 Inactive replaces 0.2mg dose Lipitor 10 mg tablet RxNorm: 195029 1 Tablet(s) PO QHS 01/20/201506/2015 Inactive Lipitor 10 mg tablet RxNorm: 710185 1 Tablet(s) PO QHS 01/20/2015 Inactive Singulair 10 mg tablet RxNorm: 594493 1 Tablet(s) PO QD TAKE ONE TABLET BY MOUTH EVERY DAY 11/20/2014 05/18/2015 Inactive Lipitor 10 mg tablet RxNorm: 641022 1 Tablet(s) PO QHS 11/20/201408/2015 Inactive allopurinol 300 mg tablet RxNorm: 618861 1 Tablet(s) PO QD TAKE ONE TABLET BY MOUTH EVERY DAY 11/20/2014 02/16/2015 Inactive Bystolic 10 mg tablet RxNorm: 386456 1 Tablet(s) PO QAM TAKE ONE TABLET BY MOUTH EVERY MORNING 11/20/2014 04/22/2015 Inactive Klor-Con 8 mEq tablet,extended release RxNorm: 803148 1 Tablet( s) PO BID 11/20/2014 02/17/2015 Inactive baclofen 20 mg tablet RxNorm: 443426 1 Tablet(s) PO TID as needed 0 11/20/2014 01/21/2019 Inactive baclofen 20 mg tablet RxNorm: 289962 1 Tablet(s) PO TID as needed 0 10/27/2014 11/19/2014 Inactive baclofen 20 mg tablet RxNorm: 831560 1 Tablet(s) PO TID as needed 0 10/26/2014 03/01/2015 Inactive allopurinol 300 mg tablet RxNorm: 895639 1 Tablet(s) PO QD TAKE ONE TABLET BY MOUTH EVERY DAY 10/26/2014 11/20/2014 Inactive Bystolic 10 mg tablet RxNorm: 866831 1 Tablet(s) PO QAM TAKE ONE TABLET BY MOUTH EVERY MORNING 10/26/2014 11/20/2014 Inactive clonidine HCl 0.1 mg tablet RxNorm: 310878 1 Tablet(s) PO TID 09/2805/27/2019 Inactive replaces 0.2mg dose clonidine HCl 0.1 mg tablet RxNorm: 580013 1 Tablet(s) PO TID 09/2802/18/2015 Inactive replaces 0.2mg dose baclofen 20 mg tablet RxNorm: 940494 1 Tablet(s) PO TID as needed 1 11/01/2013 08/30/2014 Inactive Lipitor 10 mg tablet RxNorm: 754691 1 Tablet(s) PO QHS 08/31/2014 Inactive baclofen 20 mg tablet RxNorm: 329421 1 Tablet(s) PO TID as needed 1 11/01/2013 10/26/2014 Inactive triamterene 75 mg-hydrochlorothiazide 50 mg tablet RxNorm: 3 83137 1 Tablet(s) PO QD 08/31/2014 02/26/2015 Inactive Klor-Con 8 mEq tablet,extended release RxNorm: 551763 1 Tablet( s) PO BID 08/31/2014 11/20/2014 Inactive baclofen 20 mg tablet RxNorm: 914813 1 Tablet(s) PO TID as needed 1 09/30/2013 10/25/2014 Inactive baclofen 20 mg tablet RxNorm: 683846 1 Tablet(s) PO TID as needed 1 09/30/2013 08/31/2014 Inactive omeprazole 40 mg capsule,delayed release RxNorm: 334887 1 Capsu le(s) PO QD 07/21/2014 07/23/2015 Inactive Flonase 50 mcg/actuation nasal spray,suspension RxNorm: 8963 23 1 [place] NASAL BID 07/15/2014 04/09/2017 Inactive hydrocodone 10 mg-acetaminophen 325 mg tablet RxNorm: 469642 1-2 Tablet(s) QID as needed for pain TAKE ONE TO TWO TABLETS BY MOUTH FOUR TIMES A DAY . MUST LAST 30 DAYS 06/30/2014 07/27/2014 Inactive (Response to an electronic controlled substance refill request - RxReferenceNumber: [id number]) baclofen 20 mg tablet RxNorm: 013108 1 Tablet(s) PO TID as needed 1 07/31/2014 Inactive Singulair 10 mg tablet RxNorm: 390621 1 Tablet(s) PO QD TAKE ONE TABLET BY MOUTH EVERY DAY 05/25/2014 11/20/2014 Inactive Bystolic 10 mg tablet RxNorm: 392692 TAKE ONE TABLET BY MOUTH E VERY MORNING 05/25/2014 09/21/2014 Inactive allopurinol 300 mg tablet RxNorm: 879727 1 Tablet(s) PO QD TAKE ONE TABLET BY MOUTH EVERY DAY 05/25/2014 10/21/2014 Inactive baclofen 20 mg tablet RxNorm: 292236 1 Tablet(s) PO TID as needed 0 05/25/2014 06/29/2014 Inactive allopurinol 300 mg tablet RxNorm: 782900 TAKE ONE TABLET BY LOPEZ TH EVERY DAY 05/25/2014 09/21/2014 Inactive Singulair 10 mg tablet RxNorm: 720407 1 Tablet(s) PO QD TAKE ONE TABLET BY MOUTH EVERY DAY 05/25/2014 05/24/2014 Inactive Bystolic 10 mg tablet RxNorm: 966361 1 Tablet(s) PO QAM TAKE ONE TABLET BY MOUTH EVERY MORNING 05/25/2014 10/21/2014 Inactive metolazone 2.5 mg tablet RxNorm: 487337 1 Tablet(s) PO QD as ne eded for edema 05/18/2014 04/25/2015 Inactive Lasix 40 mg tablet RxNorm: 587644 1 Tablet(s) PO RAZA ramirez take potassium supplementation with this medication 05/14/2014 05/17/2014 Inactive hydrocodone 10 mg-acetaminophen 325 mg tablet RxNorm: 272216 1-2 Tablet(s) QID as needed for pain TAKE ONE TO TWO TABLETS BY MOUTH FOUR TIMES A DAY . MUST LAST 30 DAYS 05/07/2014 06/05/2014 Inactive (Response to an electronic controlled substance refill request - RxReferenceNumber: [id number]) alprazolam 0.5 mg tablet RxNorm: 168756 TAKE ONE TABLET BY MOUTH TWICE A DAY , MUST LAST 30 DAYS 05/07/2014 05/22/2016 Inactive (Response to a n electronic controlled substance refill request - RxReferenceNumber: [id number]) diclofenac sodium 75 mg tablet,delayed release RxNorm: 99641 6 1 Tablet(s) PO BID for pain 04/24/2014 07/20/2014 Inactive Celebrex 200 mg capsule RxNorm: 923014 TAKE ONE CAPSULE BY MOUT H EVERY DAY 04/24/2014 07/20/2014 Inactive alprazolam 0.5 mg tablet RxNorm: 787246 TAKE ONE TABLET BY MOUTH TWICE A DAY , MUST LAST 30 DAYS 03/24/2014 04/22/2014 Inactive (Response to a n electronic controlled substance refill request - RxReferenceNumber: [id number]) diclofenac sodium 75 mg tablet,delayed release RxNorm: 91701 6 1 Tablet(s) PO BID for pain 03/24/2014 04/24/2014 Inactive clonidine HCl 0.1 mg tablet RxNorm: 618429 1 Tablet(s) PO TID 03/2409/28/2014 Inactive replaces 0.2mg dose Klor-Con 8 mEq tablet,extended release RxNorm: 489119 1 Tablet( s) PO BID 02/26/2014 08/31/2014 Inactive diclofenac sodium 75 mg tablet,delayed release RxNorm: 80625 6 1 Tablet(s) PO BID for pain 02/25/2014 03/24/2014 Inactive hydrocodone 10 mg-acetaminophen 325 mg tablet RxNorm: 923919 1-2 Tablet(s) QID as needed for pain TAKE ONE TO TWO TABLETS BY MOUTH FOUR TIMES A DAY . MUST LAST 30 DAYS 02/25/2014 03/26/2014 Inactive (Response to an electronic controlled substance refill request - RxReferenceNumber: [id number]) alprazolam 0.5 mg tablet RxNorm: 146054 Tablet(s) PO BI D as needed for anxiety TAKE ONE TABLET BY MOUTH TWICE A DAY , MUST LAST 30 DAYS 02/25/2014 Inactive (Response to an electronic controlled [place] bstance refill request - RxReferenceNumber: [id number]) [AttnRPh: Saving apply/adjudicate RxGRP:SG20 RxBIN:[id number] RxPCN: ID#:[id number]] alprazolam 0.5 mg tablet RxNorm: 819974 Tablet(s) TAKE ONE TABLET BY MOUTH TWICE A DAY , MUST LAST 30 DAYS 01/27/2014 02/24/2014 Inactive (Respo nse to an electronic controlled substance refill request - RxReferenceNumber: [id number]) [AttnRPh: Saving apply/adjudicate RxGRP:SG20 RxBIN:[id number] RxPCN: ID#:[id number]] hydrocodone 10 mg-acetaminophen 325 mg tablet RxNorm: 272674 1-2 Tablet(s) QID as needed for pain TAKE ONE TO TWO TABLETS BY MOUTH FOUR TIMES A DAY . MUST LAST 30 DAYS 01/27/2014 02/24/2014 Inactive (Response to an electronic controlled substance refill request - RxReferenceNumber: [id number]) alprazolam 0.5 mg tablet RxNorm: 457211 TAKE ONE TABLET BY MOUTH TWICE A DAY , MUST LAST 30 DAYS 01/27/2014 01/26/2014 Inactive (Response to a n electronic controlled substance refill request - RxReferenceNumber: [id number]) Premarin 1.25 mg tablet RxNorm: 665552 1-2 Tablet(s) PO QD 01/28/20 14 07/25/2014 Inactive alprazolam 0.5 mg tablet RxNorm: 523449 TAKE ONE TABLET BY MOUTH TWICE A DAY , MUST LAST 30 DAYS 01/27/2014 01/27/2014 Inactive (Response to a n electronic controlled substance refill request - RxReferenceNumber: [id number]) hydrocodone 10 mg-acetaminophen 325 mg tablet RxNorm: 356800 TAKE ONE TO TWO TABLETS BY MOUTH FOUR TIMES A DAY . MUST LAST 30 DAYS 01/27/20142013 Inactive (Response to an electronic controlled [place] bstance refill request - RxReferenceNumber: [id number]) Celebrex 200 mg capsule RxNorm: 305569 1 Capsule(s) PO QD TAKE ONE CAPSULE BY MOUTH EVERY DAY 12/29/2013 04/27/2014 Inactive hydrocodone 10 mg-acetaminophen 325 mg tablet RxNorm: 694365 1-2 Tablet(s) PO QID as needed for severe pain 12/29/2013 01/27/2014 Inactive allopurinol 300 mg tablet RxNorm: 815316 1 Tablet(s) PO QD TAKE ONE TABLET BY MOUTH EVERY DAY 12/29/2013 05/24/2014 Inactive alprazolam 0.5 mg tablet RxNorm: 292033 TAKE ONE TABLET BY MOUTH TWICE A DAY , MUST LAST 30 DAYS 12/29/2013 01/27/2014 Inactive (Response to a n electronic controlled substance refill request - RxReferenceNumber: [id number]) Celebrex 200 mg capsule RxNorm: 589533 1 Capsule(s) PO QD TAKE ONE CAPSULE BY MOUTH EVERY DAY 12/29/2013 12/29/2013 Inactive Bystolic 10 mg tablet RxNorm: 033999 1 Tablet(s) PO QAM TAKE ONE TABLET BY MOUTH EVERY MORNING 12/29/2013 05/24/2014 Inactive Bystolic 10 mg tablet RxNorm: 522487 1 Tablet(s) PO QAM TAKE ONE TABLET BY MOUTH EVERY MORNING 12/29/2013 12/29/2013 Inactive Singulair 10 mg tablet RxNorm: 868659 1 Tablet(s) PO QD TAKE ONE TABLET BY MOUTH EVERY DAY 12/29/2013 05/25/2014 Inactive hydrocodone 10 mg-acetaminophen 325 mg tablet RxNorm: 444483 TAKE ONE TO TWO TABLETS BY MOUTH FOUR TIMES A DAY . MUST LAST 30 DAYS 12/29/20132013 Inactive (Response to an electronic controlled [place] bstance refill request - RxReferenceNumber: [id number]) Trazadone 75mg Tablet RxNorm: 1 Tablet(s) PO QHS as needed 03/23/2014 Inactive Trazadone 75mg Tablet RxNorm: 1 Tablet(s) PO QHS 12/24/20132014 Inactive Soma 350 mg tablet RxNorm: 028646 Tablet(s) PO TAKE ON E TABLET BY MOUTH THREE TIMES A DAY NEEDED FOR MUSCLE SPASMS. THIS MUST LAST 30 DAYS BETWEEN REFILLS. 12/10/2013 12/22/2013 Inactive (Appended: Cont rolled substance eRx refill - RxReferenceNumber: [id number]) diclofenac sodium 75 mg tablet,delayed release RxNorm: 21678 6 1 Tablet(s) PO BID for pain 12/10/2013 02/24/2014 Inactive allopurinol 300 mg tablet RxNorm: 652191 1 Tablet(s) PO QD 11/20/19 14 12/29/2013 Inactive alprazolam 0.5 mg tablet RxNorm: 253304 2 Tablet(s) PO BID 11/13/19 14 12/29/2013 Inactive prn clonidine 0.1 mg tablet RxNorm: 152904 1 Tablet(s) PO TID 11/12/2013 02/09/2014 Inactive replaces 0.2mg dose Klor-Con M20 mEq tablet,extended release RxNorm: 861718 2 Tablet(s) PO BID to use with lasix 11/12/2013 05/10/2014 Inactive Singulair 10 mg tablet RxNorm: 640937 1 Tablet(s) PO QD 11/12/2013 Inactive hydrocodone 10 mg-acetaminophen 325 mg tablet RxNorm: 553041 1-2 Tablet(s) PO QID as needed for severe pain 11/12/2013 12/28/2013 Inactive Bystolic 10 mg tablet RxNorm: 059053 1 Tablet(s) PO QAM 11/12/2013 Inactive Soma 350 mg tablet RxNorm: 526988 Tablet(s) PO TAKE ON E TABLET BY MOUTH THREE TIMES A DAY NEEDED FOR MUSCLE SPASMS. THIS MUST LAST 30 DAYS BETWEEN REFILLS. 10/13/2013 12/10/2013 Inactive (Appended: Cont rolled substance eRx refill - RxReferenceNumber: [id number]) hydrocodone 10 mg-acetaminophen 325 mg tablet RxNorm: 203626 1-2 Tablet(s) PO QID as needed for severe pain 10/03/2013 11/11/2013 Inactive diclofenac sodium 75 mg tablet,delayed release RxNorm: 63640 8 1 Tablet(s) PO BID for pain 09/11/2013 12/10/2013 Inactive alprazolam 0.5 mg tablet RxNorm: 418066 1 Tablet(s) PO BID May refill on 04/26/13 09/01/2013 10/30/2013 Inactive prn hydrocodone 10 mg-acetaminophen 325 mg tablet RxNorm: 329385 1-2 Tablet(s) PO QID as needed for severe pain 09/01/2013 10/02/2013 Inactive triamterene 75 mg-hydrochlorothiazide 50 mg tablet RxNorm: 3 72473 1 Tablet(s) PO QD 08/04/2013 08/31/2014 Inactive cyclobenzaprine 10 mg tablet RxNorm: 770794 1 Tablet(s) PO TID prn spasm 08/04/2013 08/13/2013 Inactive clonidine 0.1 mg tablet RxNorm: 617517 1 Tablet(s) PO TID 08/04/2013 11/11/2013 Inactive replaces 0.2mg dose cyclobenzaprine 10 mg tablet RxNorm: 530881 1 Tablet(s) PO TID prn spasm 07/23/2013 08/01/2013 Inactive hydrocodone 10 mg-acetaminophen 325 mg tablet RxNorm: 811697 2 1-2 Tablet(s) PO QID as needed for severe pain 06/09/2013 08/07/2013 Inactive Singulair 10 mg tablet RxNorm: 132328 1 Tablet(s) PO QD 05/29/2013 Inactive Klor-Con 8 mEq tablet,extended release RxNorm: 842018 1 Tablet( s) PO BID 05/29/2013 02/26/2014 Inactive allopurinol 300 mg tablet RxNorm: 673137 1 Tablet(s) PO QD 05/29/2011/19/2013 Inactive Bystolic 10 mg tablet RxNorm: 215063 1 Tablet(s) PO QAM take one daily in the morning. 05/29/2013 11/11/2013 Inactive scopolamine 1.5 mg 72 hr Transderm Patch RxNorm: 195528 Application TD Q72H for motion sickness 05/26/2013 07/22/2013 Inactive Soma 350 mg tablet RxNorm: 113410 1 Tablet(s) PO TID as needed for spasm 05/19/2013 10/13/2013 Inactive diclofenac sodium 75 mg tablet,delayed release RxNorm: 65819 8 1 Tablet(s) PO BID for pain 05/14/2013 07/22/2013 Inactive allopurinol 300 mg tablet RxNorm: 309571 1 Tablet(s) PO QD 04/25/2005/28/2013 Inactive alprazolam 0.5 mg tablet RxNorm: 854078 1 Tablet(s) PO BID May refill on 04/26/13 04/25/2013 06/23/2013 Inactive prn Celebrex 200 mg capsule RxNorm: 289794 1 Capsule(s) PO QD 04/16/2013 12/29/2013 Inactive alprazolam 0.5 mg tablet RxNorm: 313949 1 Tablet(s) PO BID May refill on 04/26/13 04/16/2013 04/24/2013 Inactive prn Soma 350 mg tablet RxNorm: 439292 1 Tablet(s) PO TID as needed for spasm 04/16/2013 No Stop Date Active Lasix 40 mg tablet RxNorm: 766266 1 Tablet(s) PO QAM s hould take potassium supplementation with this medication 04/16/2013 06/14/2013 Inactive clonidine 0.1 mg tablet RxNorm: 174753 1 Tablet(s) PO TID 04/16/2013 08/03/2013 Inactive replaces 0.2mg dose prednisone 20 mg tablet RxNorm: 537592 1 Tablet(s) PO BID 04/16/2013 04/20/2013 Inactive diclofenac sodium 75 mg tablet,delayed release RxNorm: 82277 8 1 Tablet(s) PO BID for pain 04/14/2013 05/13/2013 Inactive hydrocodone 10 mg-acetaminophen 325 mg tablet RxNorm: 375569 2 1-2 Tablet(s) PO QID as needed for severe pain 04/14/2013 No Stop Date Active Lasix 40 mg tablet RxNorm: 482931 1 Tablet(s) PO QAM s hould take potassium supplementation with this medication 03/31/2013 04/15/2013 Inactive Celebrex 200 mg capsule RxNorm: 776061 1 Capsule(s) PO QD 03/31/2013 04/15/2013 Inactive alprazolam 0.5 mg tablet RxNorm: 328496 1 Tablet(s) PO BID 03/28/20 13 04/15/2013 Inactive prn hydrocodone 10 mg-acetaminophen 325 mg tablet RxNorm: 428265 2 1-2 Tablet(s) PO QID as needed for severe pain 03/10/2013 No Stop Date Active metformin ER 500 mg 24 hr tablet,extended release RxNorm: 86 1018 1 Tablet(s) PO QD 03/06/2013 07/22/2013 Inactive clindamycin 300 mg capsule RxNorm: 166586 2 Capsule(s) PO TID 03/0503/14/2013 Inactive Zaroxolyn 2.5 mg tablet RxNorm: 185841 1 Tablet(s) PO QAM 03/05/2013 05/19/2015 Inactive amlodipine 10 mg tablet RxNorm: 825479 1 Tablet(s) PO QD 03/03/2013 0 05/25/2013 Inactive Norvasc 10 mg tablet RxNorm: 533737 1 Tablet(s) PO QD 02/28/201307/11 Inactive Celebrex 200 mg capsule RxNorm: 121772 1 Capsule(s) PO QD 02/28/2013 03/30/2013 Inactive diclofenac sodium 75 mg tablet,delayed release RxNorm: 12803 8 1 Tablet(s) PO BID for pain 02/14/2013 03/15/2013 Inactive Soma 350 mg tablet RxNorm: 795679 1 Tablet(s) PO TID as needed for spasm 02/14/2013 No Stop Date Active hydrocodone 10 mg-acetaminophen 325 mg tablet RxNorm: 843455 2 1-2 Tablet(s) PO QID as needed for severe pain 02/14/2013 No Stop Date Active Norvasc 10 mg tablet RxNorm: 003608 1 Tablet(s) PO QD 02/10/201302/09 Inactive Celebrex 200 mg capsule RxNorm: 300314 1 Capsule(s) PO QD 01/27/2013 01/26/2013 Inactive Premarin 1.25 mg tablet RxNorm: 200127 1-2 Tablet(s) PO QD 01/28/20 13 06/25/2013 Inactive alprazolam 0.5 mg tablet RxNorm: 486242 1 Tablet(s) PO BID 01/28/20 13 02/25/2013 Inactive prn amlodipine 5 mg tablet RxNorm: 467550 1 Tablet(s) PO QD 01/27/2013 Inactive Celebrex 200 mg capsule RxNorm: 914043 1 Capsule(s) PO QD 01/27/2013 02/27/2013 Inactive gabapentin 600 mg tablet RxNorm: 256265 1 Tablet(s) PO QHS 01/16/20 13 07/22/2013 Inactive Soma 350 mg tablet RxNorm: 228023 1 Tablet(s) PO TID as needed for spasm 01/15/2013 No Stop Date Active hydrocodone 10 mg-acetaminophen 325 mg tablet RxNorm: 838926 2 1-2 Tablet(s) PO QID as needed for severe pain 01/15/2013 No Stop Date Active Soma 350 mg tablet RxNorm: 434898 1 Tablet(s) PO TID as needed for spasm 01/13/2013 No Stop Date Active alprazolam 0.5 mg tablet RxNorm: 567481 1 Tablet(s) PO BID 12/31/19 13 01/26/2013 Inactive prn diclofenac sodium 75 mg tablet,delayed release RxNorm: 79018 8 1 Tablet(s) PO BID for pain 12/09/2012 01/07/2013 Inactive gabapentin 600 mg tablet RxNorm: 866704 1 Tablet(s) PO QHS 12/10/19 13 01/07/2013 Inactive hydrocodone 10 mg-acetaminophen 325 mg tablet RxNorm: 216683 2 1-2 Tablet(s) PO QID as needed for severe pain 12/02/2012 No Stop Date Active Levaquin 750 mg tablet RxNorm: 000240 1 Tablet(s) PO QD 11/21/2012 Inactive Singulair 10 mg tablet RxNorm: 532185 1 Tablet(s) PO QD 11/11/2012 Inactive clonidine 0.2 mg tablet RxNorm: 331961 1 Tablet(s) PO TID 11/11/2012 04/15/2013 Inactive alprazolam 0.5 mg tablet RxNorm: 909341 1 Tablet(s) PO BID 11/12/19 13 12/10/2012 Inactive prn Klor-Con 8 mEq tablet,extended release RxNorm: 147253 1 Tablet( s) PO BID 11/11/2012 03/04/2013 Inactive hydrocodone 10 mg-acetaminophen 325 mg tablet RxNorm: 095786 2 1-2 Tablet(s) PO QID as needed for severe pain 11/06/2012 No Stop Date Active alprazolam 0.5 mg tablet RxNorm: 062454 1 Tablet(s) PO BID 10/15/19 13 11/10/2012 Inactive prn hydrocodone-acetaminophen 10 mg-325 mg tablet RxNorm: 942263 2 1-2 Tablet(s) PO QID as needed for severe pain 10/10/2012 10/09/2012 Inactive allopurinol 300 mg tablet RxNorm: 784693 1 Tablet(s) PO QD 09/20/19 13 12/18/2012 Inactive alprazolam 0.5 mg tablet RxNorm: 595637 1 Tablet(s) PO BID 09/17/19 13 10/14/2012 Inactive prn hydrocodone-acetaminophen 10 mg-325 mg tablet RxNorm: 642306 2 1-2 Tablet(s) PO QID as needed for severe pain 08/22/2012 08/21/2012 Inactive Norvasc 10 mg tablet RxNorm: 109304 1 Tablet(s) PO QD 08/12/201201/10 Inactive Premarin 1.25 mg tablet RxNorm: 591514 1-2 Tablet(s) PO QD 07/30/20 12 12/26/2012 Inactive alprazolam 0.5 mg tablet RxNorm: 809692 1 Tablet(s) PO BID 07/29/20 12 08/27/2012 Inactive prn Klor-Con 8 mEq tablet,extended release RxNorm: 456140 1 Tablet( s) PO BID 07/29/2012 11/10/2012 Inactive hydrocodone-acetaminophen 10 mg-325 mg tablet RxNorm: 792335 2 1-2 Tablet(s) PO QID as needed for severe pain 07/29/2012 No Stop Date Active Premarin 1.25 mg tablet RxNorm: 539317 1-2 Tablet(s) PO QD 07/29/20 12 07/29/2012 Inactive clonidine 0.2 mg tablet RxNorm: 632140 1 Tablet(s) PO TID 07/29/2012 10/28/2012 Inactive ketorolac 10 mg tablet RxNorm: 240342 1 Tablet(s) PO QID prn he adache 07/18/2012 No Stop Date Active hydrocodone-acetaminophen 10 mg-325 mg tablet RxNorm: 625197 2 1-2 Tablet(s) PO QID as needed for severe pain 07/03/2012 No Stop Date Active amlodipine 5 mg tablet RxNorm: 866404 1 Tablet(s) PO QD 07/02/2012 Inactive allopurinol 300 mg tablet RxNorm: 498759 1 Tablet(s) PO QD 07/02/20 12 09/19/2012 Inactive Celebrex 200 mg capsule RxNorm: 755101 1 Capsule(s) PO QD for j oint pain 06/26/2012 10/23/2012 Inactive diclofenac sodium 75 mg tablet,delayed release RxNorm: 59026 8 1 Tablet(s) PO BID for pain 06/19/2012 09/16/2012 Inactive hydrocodone-acetaminophen 10 mg-325 mg tablet RxNorm: 582139 2 1-2 Tablet(s) PO QID as needed for severe pain 06/10/2012 No Stop Date Active alprazolam 0.5 mg tablet RxNorm: 591326 1 Tablet(s) PO BID 06/03/20 12 07/02/2012 Inactive prn ketorolac 10 mg tablet RxNorm: 737319 1 Tablet(s) PO Q8H 05/27/2012 0 01/21/2019 Inactive as needed for headache hydrocodone-acetaminophen 10 mg-325 mg tablet RxNorm: 736954 2 1-2 Tablet(s) PO QID as needed for severe pain 05/15/2012 No Stop Date Active allopurinol 300 mg tablet RxNorm: 814616 1 Tablet(s) PO QD 05/14/20 12 06/12/2012 Inactive allopurinol 300 mg tablet RxNorm: 514322 1 Tablet(s) PO QD 05/14/20 12 05/13/2012 Inactive amlodipine 5 mg tablet RxNorm: 898486 1 Tablet(s) PO QD 05/01/2012 Inactive amlodipine 5 mg Tab RxNorm: 385786 1 Tablet(s) PO QD 05/01/201204/30 Inactive Celebrex 200 mg capsule RxNorm: 996116 1 Capsule(s) PO QD for j oint pain 05/01/2012 06/25/2012 Inactive Singulair 10 mg tablet RxNorm: 431458 1 Tablet(s) PO QD 05/01/2012 Inactive alprazolam 0.5 mg tablet RxNorm: 028674 1 Tablet(s) PO BID 05/01/20 12 05/30/2012 Inactive prn Celebrex 200 mg Cap RxNorm: 252073 1 Capsule(s) PO QD for joint radu n 05/01/2012 04/30/2012 Inactive hydrocodone-acetaminophen 10 mg-325 mg tablet RxNorm: 932829 2 1-2 Tablet(s) PO QID as needed for severe pain 04/19/2012 No Stop Date Active Lasix 40 mg tablet RxNorm: 459862 1 Tablet(s) PO QAM s hould take potassium supplementation with this medication 04/05/2012 06/03/2012 Inactive alprazolam 0.5 mg Tab RxNorm: 025602 1 Tablet(s) PO BID 04/05/2012 Inactive prn hydrocodone-acetaminophen 10 mg-325 mg Tab RxNorm: 2737361 1-2 Tablet(s) PO QID as needed for severe pain 03/25/2012 03/24/2012 Inactive clonidine 0.2 mg Tab RxNorm: 153072 1 Tablet(s) PO TID 03/08/2012 Inactive alprazolam 0.5 mg Tab RxNorm: 173767 1 Tablet(s) PO BID 03/08/2012 Inactive prn Soma 350 mg tablet RxNorm: 375579 1 Tablet(s) PO TID for spasm 02/0903/18/2012 Inactive clonidine 0.2 mg tablet RxNorm: 412316 1 Tablet(s) PO TID 03/08/2012 07/28/2012 Inactive Celebrex 200 mg Cap RxNorm: 349627 1 Capsule(s) PO QD for joint radu n 03/01/2012 04/29/2012 Inactive amlodipine 5 mg Tab RxNorm: 382484 1 Tablet(s) PO QD 02/26/201202/24 Inactive amlodipine 5 mg Tab RxNorm: 182099 1 Tablet(s) PO QD 02/26/201204/25 Inactive Bactroban 2 % Ointment RxNorm: 394289 Application TOP QID to sores 02/23/2012 No Stop Date Active amlodipine 2.5 mg tablet RxNorm: 341032 1 Tablet(s) PO QHS 02/20/20 12 02/25/2012 Inactive doxycycline hyclate 100 mg Cap RxNorm: 3513229 1 Capsule(s) PO BID 02/20/2012 02/29/2012 Inactive hydrocodone-acetaminophen 10 mg-325 mg Tab RxNorm: 6569617 1-2 T ablet(s) PO QID 02/08/2012 No Stop Date Active alprazolam 0.5 mg Tab RxNorm: 601658 1 Tablet(s) PO BID 02/08/2012 Inactive prn Singulair 10 mg Tab RxNorm: 804601 1 Tablet(s) PO QD 02/08/201204/30 Inactive Soma 350 mg Tab RxNorm: 490146 1 Tablet(s) PO TID for spasm 012 03/07/2012 Inactive Soma 350 mg Tab RxNorm: 667544 1 Tablet(s) PO TID for spasm 012 02/05/2012 Inactive diclofenac sodium 75 mg tablet,delayed release RxNorm: 45390 8 1 Tablet(s) PO BID for pain 02/01/2012 03/18/2012 Inactive Celebrex 200 mg Cap RxNorm: 948848 1 Capsule(s) PO QD for joint radu n 01/30/2012 02/28/2012 Inactive Lasix 40 mg Tab RxNorm: 223443 1 Tablet(s) PO QAM 01/24/2012 03/18/20 12 Inactive potassium chloride ER 20 mEq tablet,extended release(part/cr yst) RxNorm: 494932 2 Tablet(s) PO BID 01/24/2012 02/22/2012 Inactive alprazolam 0.5 mg Tab RxNorm: 613440 1 Tablet(s) PO BID 01/11/2012 Inactive prn hydrocodone-acetaminophen 10 mg-325 mg Tab RxNorm: 3368516 1-2 T ablet(s) PO QID 01/11/2012 No Stop Date Active Ambien 10 mg Tab RxNorm: 375804 1 Tablet(s) PO QHS 01/11/2012 012 Inactive Klor-Con 8 mEq Tab RxNorm: 424732 1 Tablet(s) PO BID 01/11/201201/22 Inactive diclofenac sodium 75 mg Tab, Delayed Release RxNorm: 581835 1 Tablet(s) PO BID for pain 01/10/2012 01/31/2012 Inactive Ambien 10 mg Tab RxNorm: 704627 1 Tablet(s) PO QHS 12/11/2011 012 Inactive alprazolam 0.5 mg Tab RxNorm: 668453 1 Tablet(s) PO BID 12/11/2011 Inactive prn hydrocodone 10 mg-acetaminophen 325 mg tablet RxNorm: 361024 1-2 Tablet(s) PO TID 11/28/2011 No Stop Date Active as needed for pa in - Previous quantity #240, will start dosing for #180 in April 2011 per Doctor Td. Ambien 10 mg Tab RxNorm: 271566 1 Tablet(s) PO QHS 11/09/2011 012 Inactive alprazolam 0.5 mg Tab RxNorm: 265389 1 Tablet(s) PO BID 11/09/2011 Inactive prn hydrocodone-acetaminophen 10 mg-325 mg Tab RxNorm: 0034583 1-2 T ablet(s) PO TID 11/06/2011 No Stop Date Active as needed for pain - Previous quantity #240, will start dosing for #180 in April 2011 per Doctor Td. Singulair 10 mg Tab RxNorm: 279142 1 Tablet(s) PO QD 10/13/201110/12 Inactive Singulair 10 mg Tab RxNorm: 312359 1 Tablet(s) PO QD 10/13/201102/06 Inactive hydrocodone-acetaminophen 10 mg-325 mg Tab RxNorm: 2683569 1-2 T ablet(s) PO TID 10/10/2011 10/09/2011 Inactive as needed for pain - Previous quantity #240, will start dosing for #180 in April 2011 per Doctor Td. hydrocodone-acetaminophen 10 mg-325 mg Tab RxNorm: 5801784 1-2 T ablet(s) PO TID 10/09/2011 No Stop Date Active as needed for pain - Previous quantity #240, will start dosing for #180 in April 2011 per Doctor Td. Klor-Con 8 mEq Tab RxNorm: 474553 1 Tablet(s) PO BID 10/02/201101/09 Inactive triamterene 75 mg-hydrochlorothiazide 50 mg tablet RxNorm: 3 73449 1 Tablet(s) PO QD 09/14/2011 03/06/2013 Inactive Ambien 10 mg Tab RxNorm: 030735 1 Tablet(s) PO QHS 09/14/2011 012 Inactive hydrocodone-acetaminophen 10 mg-325 mg Tab RxNorm: 9327688 1-2 T ablet(s) PO TID 09/14/2011 No Stop Date Active as needed for pain - Previous quantity #240, will start dosing for #180 in April 2011 per Doctor Td. alprazolam 0.5 mg Tab RxNorm: 988262 1 Tablet(s) PO BID 09/14/2011 Inactive prn Zithromax 500 mg Tab RxNorm: 902235 1 Tablet(s) PO QD 09/13/201109/10 Inactive prednisone 20 mg Tab RxNorm: 793875 1 Tablet(s) PO BID 08/31/2011 Inactive Ambien 10 mg Tab RxNorm: 502728 1 Tablet(s) PO QHS 08/17/2011 011 Inactive hydrocodone-acetaminophen 10 mg-325 mg Tab RxNorm: 2123455 1-2 T ablet(s) PO TID 08/17/2011 No Stop Date Active as needed for pain - Previous quantity #240, will start dosing for #180 in April 2011 per Doctor Td. clonidine 0.2 mg Tab RxNorm: 527017 1 Tablet(s) PO TID 08/17/201112/2011 Inactive Ambien 10 mg Tab RxNorm: 219999 1 Tablet(s) PO QHS 08/17/2011 019 Inactive alprazolam 0.5 mg Tab RxNorm: 467153 1 Tablet(s) PO BID 08/17/2011 Inactive prn hydrocodone-acetaminophen 10 mg-325 mg Tab RxNorm: 3323480 1-2 T ablet(s) PO TID 08/17/2011 08/16/2011 Inactive as needed for pain - Previous quantity #240, will start dosing for #180 in April 2011 per Doctor Td. Singulair 10 mg Tab RxNorm: 052503 1 Tablet(s) PO QD 08/17/201108/16 Inactive Klor-Con 8 mEq Tab RxNorm: 752653 1 Tablet(s) PO QD 08/17/20112011 Inactive alprazolam 0.5 mg Tab RxNorm: 331911 1 Tablet(s) PO BID 07/20/2011 Inactive prn Ambien 10 mg Tab RxNorm: 078985 1 Tablet(s) PO QHS 07/20/2011 012 Inactive Singulair 10 mg Tab RxNorm: 182656 1 Tablet(s) PO QD 07/20/201107/19 Inactive Premarin 1.25 mg tablet RxNorm: 552190 2 Tablet(s) PO QD 07/20/2011 0 01/21/2019 Inactive Premarin 1.25 mg tablet RxNorm: 291505 1-2 Tablet(s) PO QD 07/20/20 11 12/16/2011 Inactive Premarin 1.25 mg Tab RxNorm: 269802 1-2 Tablet(s) PO QD 07/06/2011 Inactive alprazolam 0.5 mg Tab RxNorm: 078862 1 Tablet(s) PO BID 06/22/2011 Inactive prn alprazolam 0.5 mg Tab RxNorm: 039580 1 Tablet(s) PO BID 06/22/2011 Inactive prn Premarin 1.25 mg Tab RxNorm: 697620 1 Tablet(s) PO QD m ay do 90 day fill if desired 06/22/2011 07/05/2011 Inactive hydrocodone-acetaminophen 10 mg-325 mg Tab RxNorm: 9514394 1-2 T ablet(s) PO TID 06/22/2011 No Stop Date Active as needed for pain - Previous quantity #240, will start dosing for #180 in April 2011 per Doctor Td. clonidine 0.2 mg Tab RxNorm: 059944 1 Tablet(s) PO TID 05/25/201103/2011 Inactive triamterene-hydrochlorothiazide 75 mg-50 mg Tab RxNorm: 3108 18 1 Tablet(s) PO QD 05/25/2011 09/13/2011 Inactive alprazolam 0.5 mg Tab RxNorm: 889441 1 Tablet(s) PO BID 05/25/2011 Inactive prn hydrocodone-acetaminophen 10 mg-325 mg Tab RxNorm: 4238324 1-2 T ablet(s) PO TID 05/25/2011 No Stop Date Active as needed for pain - Previous quantity #240, will start dosing for #180 in April 2011 per Doctor Td. Robaxin-750 750 mg Tab RxNorm: 376099 2 Tablet(s) PO QHS 05/22/2011 1 Inactive prn spasm hydrocodone-acetaminophen 10 mg-325 mg Tab RxNorm: 8412652 1-2 T ablet(s) PO TID 04/26/2011 No Stop Date Active as needed for pain - Previous quantity #240, will start dosing for #180 in April 2011 per Doctor Td. alprazolam 0.5 mg Tab RxNorm: 479190 1 Tablet(s) PO BID 04/25/2011 Inactive prn Klor-Con 8 mEq Tab RxNorm: 289392 1 Tablet(s) PO QD 03/30/20112010 Inactive Klor-Con 8 mEq Tab RxNorm: 270766 1 Tablet(s) PO QD 03/29/20112010 Inactive hydrocodone-acetaminophen 10 mg-325 mg Tab RxNorm: 0206230 1-2 T ablet(s) PO TID 03/20/2011 04/25/2011 Inactive as needed for pain - Previous quantity #240, will start dosing for #180 in April 2011 per Doctor Td. alprazolam 0.5 mg Tab RxNorm: 422110 1 Tablet(s) PO BID prn 011 03/30/2011 Inactive Ambien 10 mg Tab RxNorm: 132749 1 Tablet(s) PO QHS 03/01/2011 011 Inactive cyclobenzaprine 10 mg Tab RxNorm: 499626 1 Tablet(s) PO TID 011 03/18/2012 Inactive cyclobenzaprine 10 mg Tab RxNorm: 154930 1 Tablet(s) PO TID 011 01/08/2011 Inactive cyclobenzaprine 10 mg Tab RxNorm: 993551 1 Tablet(s) PO TID 011 12/20/2010 Inactive terbinafine 250 mg Tab RxNorm: 337989 1 Tablet(s) PO QD 12/12/2010 Inactive triamterene-hydrochlorothiazide 75 mg-50 mg Tab RxNorm: 3108 18 1 Tablet(s) PO QD 12/07/2010 06/04/2011 Inactive Klor-Con 8 8 mEq Tab RxNorm: 252843 1 Tablet(s) PO QD 12/07/201001/08 Inactive Premarin 1.25 mg Tab RxNorm: 641467 2 Tablet(s) PO QD 12/07/201001/08 Inactive clonidine 0.2 mg Tab RxNorm: 999552 1 Tablet(s) PO TID 12/07/2010 Inactive hydrocodone-acetaminophen 7.5 mg-650 mg Tab RxNorm: 416303 1 Ta blet(s) PO Q4H 12/05/2010 01/21/2019 Inactive hydrocodone-acetaminophen 7.5 mg-650 mg Tab RxNorm: 432561 1 Ta blet(s) PO Q4H 10/26/2010 11/14/2010 Inactive hydrocodone-acetaminophen 7.5 mg-650 mg Tab RxNorm: 457631 1 Ta blet(s) PO Q4H 10/13/2010 10/25/2010 Inactive hydrocodone-acetaminophen 7.5 mg-650 mg Tab RxNorm: 504009 1 Ta blet(s) PO Q4H 09/15/2010 09/12/2010 Inactive alprazolam 0.5 mg Tab RxNorm: 593019 1 Tablet(s) PO BID prn 011 09/12/2010 Inactive terbinafine 250 mg Tab RxNorm: 611032 1 Tablet(s) PO QD 09/05/2010 Inactive hydrocodone-acetaminophen 7.5 mg-650 mg Tab RxNorm: 026054 1 Ta blet(s) PO Q4H 08/29/2010 09/17/2010 Inactive alprazolam 0.5 mg Tab RxNorm: 738560 1 Tablet(s) PO BID prn 010 09/27/2010 Inactive alprazolam 0.5 mg Tab RxNorm: 982900 1 Tablet(s) PO BID prn 010 09/06/2010 Inactive Klor-Con 8 mEq Tab RxNorm: 062816 1 Tablet(s) PO QD 08/08/20102010 Inactive hydrocodone-acetaminophen 7.5 mg-650 mg Tab RxNorm: 964512 1 Ta blet(s) PO Q4H 08/08/2010 08/27/2010 Inactive Ambien 10 mg Tab RxNorm: 730883 1 Tablet(s) PO QHS 08/08/2010 Inactive clonidine 0.2 mg Tab RxNorm: 006445 1 Tablet(s) PO TID 08/08/2010 Inactive Premarin 1.25 mg Tab RxNorm: 069682 2 Tablet(s) PO QD 08/08/201009/12 Inactive Ambien 10 mg Tab RxNorm: 078036 1 Tablet(s) PO QHS 07/18/2010 Inactive alprazolam 0.5 mg Tab RxNorm: 363301 1 Tablet(s) PO BID prn 010 08/07/2010 Inactive hydrocodone-acetaminophen 7.5 mg-650 mg Tab RxNorm: 656895 1 Ta blet(s) PO Q4H 07/12/2010 07/31/2010 Inactive clonidine 0.2 mg Tab RxNorm: 253021 1 Tablet(s) PO TID 06/20/2010 Inactive terbinafine 250 mg Tab RxNorm: 902576 1 Tablet(s) PO QD 05/24/2010 Inactive Clonidine 0.2 mg Tab RxNorm: 059840 1 Tablet(s) PO TID 05/24/201006/2010 Inactive Ambien 10 mg Tab RxNorm: 358309 1 Tablet(s) PO QHS 05/24/2010 010 Inactive alprazolam 0.5 mg Tab RxNorm: 736161 1 Tablet(s) PO BID 05/24/2010 Inactive Klor-Con 8 mEq Tab RxNorm: 104970 1 Tablet(s) PO QD 05/24/20102009 Inactive alprazolam 0.5 mg Tab RxNorm: 881615 2 Tablet(s) PO QD prn 05/24/2007/17/2010 Inactive triamterene-hydrochlorothiazide 75 mg-50 mg Tab RxNorm: 3108 18 1 Tablet(s) PO QD 05/24/2010 11/19/2010 Inactive Ambien 10 mg Tab RxNorm: 016988 1 Tablet(s) PO QHS 05/23/2010 010 Inactive Alprazolam 0.5 mg Tab RxNorm: 982264 2 Tablet(s) PO QD prn 05/23/2005/23/2010 Inactive Premarin 1.25 mg Tab RxNorm: 528180 2 Tablet(s) PO QD 05/19/201007/12 Inactive Hydrocodone-Acetaminophen 7.5 mg-650 mg Tab RxNorm: 619448 1 Ta blet(s) PO Q4H 05/19/2010 03/20/2011 Inactive Prednisone 20 mg Tab RxNorm: 528014 1 Tablet(s) PO BID 05/17/2010 Inactive Prednisone 20 mg Tab RxNorm: 435209 1 Tablet(s) PO BID 05/06/201001/2010 Inactive Premarin 1.25 mg Tab RxNorm: 916208 Tablet(s) PO 2 M-W-F, and 1 Qn-Xe-Zwz-Sun 05/05/2010 08/02/2010 Inactive Premarin 1.25 mg Tab RxNorm: 250338 Tablet(s) PO 2 M-W-F, and 1 Yo-Um-Xtf-Sun 05/04/2010 05/04/2010 Inactive Premarin 1.25 mg Tab RxNorm: 920432 Tablet(s) PO 2 M-W-F, and 1 Nv-Wz-Ixl-Sun 05/04/2010 05/03/2010 Inactive Prednisone 20 mg Tab RxNorm: 077130 1 Tablet(s) PO BID 04/27/2010 Inactive Alprazolam 0.5 mg Tab RxNorm: 867601 2 Tablet(s) PO QD prn 04/26/20 10 05/22/2010 Inactive Clindamycin 300 mg Cap RxNorm: 017481 2 Capsule(s) PO TID 04/05/2010 04/18/2010 Inactive Terbinafine 250 mg Tab RxNorm: 059719 1 Tablet(s) PO QD 04/04/2010 Inactive Hydrocodone-Acetaminophen 7.5 mg-650 mg Tab RxNorm: 156091 1 Ta blet(s) PO Q4H 03/30/2010 04/18/2010 Inactive Avelox 400 mg Tab RxNorm: 424056 1 Tablet(s) PO QD 03/09/2010 010 Inactive Hydrocodone-Acetaminophen 7.5 mg-650 mg Tab RxNorm: 926226 1 Ta blet(s) PO Q4H 03/08/2010 03/27/2010 Inactive Alprazolam 0.5 mg Tab RxNorm: 061338 2 Tablet(s) PO QD prn 03/08/20 10 04/25/2010 Inactive Klor-Con 8 mEq Tab RxNorm: 435579 1 Tablet(s) PO QD when takes lasi x 03/07/2010 09/29/2019 Inactive Premarin 1.25 mg Tab RxNorm: 683680 1 Tablet(s) PO QD 03/03/201003/11 Inactive Alprazolam 0.5 mg Tab RxNorm: 881499 1 Tablet(s) PO BID PRN 010 No Stop Date Active triamterene-hydrochlorothiazide 75 mg-50 mg Tab RxNorm: 3108 18 1 Tablet(s) PO QD 02/09/2010 02/03/2011 Inactive Hydrocodone-Acetaminophen 10 mg-750 mg Tab RxNorm: 615239 1 Tablet(s) PO Q4H PRN 02/09/2010 03/20/2011 Inactive Clonidine 0.2 mg Tab RxNorm: 666122 1 Tablet(s) PO TID 01/13/201009/2009 Inactive Alprazolam 0.5 mg Tab RxNorm: 120352 1 Tablet(s) PO BID PRN 010 01/12/2010 Inactive Hydrocodone-Acetaminophen 10 mg-750 mg Tab RxNorm: 973012 1 Tablet(s) PO Q4H PRN 01/13/2010 01/12/2010 Inactive ANGELIQ 1 mg-0.5 mg Tab RxNorm: 9504408 1 Tablet(s) PO QD 12/27/2009 01/23/2010 Inactive Lasix 40 mg Tab RxNorm: 313890 1 Tablet(s) PO QAM 12/14/2009 06/11/20 10 Inactive Vitamin B12 1000mcg Tablet RxNorm: 1 Tablet(s) PO QD No Start Date Active cyclobenzaprine 10 mg tablet RxNorm: 069667 1 Tablet(s) PO TID as needed DO NOT USE WITH BACLOFEN No Start Date Active Vitamin D 5,000 unit Tab RxNorm: 1 Tablet(s) PO QD No Start Date Active vitamin E (dl, acetate) 400 unit Cap RxNorm: 075781 1 Capsule(s ) PO QD No Start Date Active Benadryl 25 mg Cap RxNorm: 4044286 Capsule(s) PO PRN No Start Date Inactive amitriptyline 100 mg tablet RxNorm: 514084 1 Tablet(s) PO QHS No St art Date 11/27/2016 Inactive Zithromax Z-Dustin 250 mg tablet RxNorm: 721173 Tablet(s) PO as di rected No Start Date 07/22/2013 Inactive Klor-Con 8 mEq tablet,extended release RxNorm: 055651 1 Tablet( s) PO BID No Start Date 07/28/2012 Inactive scopolamine 1.5 mg 72 hr Transderm Patch RxNorm: 325207 Application TD Q72H for motion sickness No Start Date 05/25/2013 Inactive Klonopin 1 mg tablet RxNorm: 901570 1-2 Tablet(s) PO QHS as nee ded for sleep No Start Date 06/20/2015 Inactive Klor-Con M20 mEq tablet,extended release RxNorm: 887089 2 Tablet(s) PO BID to use with lasix No Start Date 11/11/2013 Inactive Bystolic 5 mg tablet RxNorm: 747434 1 Tablet(s) PO QD No Start Date 1 Inactive Bystolic 10 mg tablet RxNorm: 460327 1 Tablet(s) PO BID No Start Da te 07/06/2015 Inactive Premarin 1.25 mg Tab RxNorm: 319382 Tablet(s) PO 2 M-W-F, and 1 [id number]-Xc-Ktc-Sun No Start Date 05/03/2010 Inactive baclofen 20 mg tablet RxNorm: 247108 1 Tablet(s) PO TID as needed for muscle spasm No Start Date 07/22/2015 Inactive hydrocodone-acetaminophen 7.5 mg-650 mg Tab RxNorm: 848657 1 Tablet(s) PO Q4H as needed for pain No Start Date 03/20/2011 Inactive albuterol sulfate 1.25 mg/3 mL Neb Solution RxNorm: 686400 1 Unit Dose INH Q4H 2boxes No Start Date 09/06/2015 Inactive Butrans 20 mcg/hour Transderm Patch RxNorm: 125017 1 TD WEEKLY apply to skin weekly after removing previous. No Start Date 07/22/2013 Inactive Medrol (Dustin) 4 mg tablets in a dose pack RxNorm: 030673 Tablet(s) PO As Directed No Start Date 07/30/2016 Inactive hydrocodone-acetaminophen 10 mg-325 mg Tab RxNorm: 2280300 1-2 Tablet(s) PO TID as needed for pain No Start Date 03/19/2011 Inactive Klonopin 1 mg tablet RxNorm: 761457 1 Tablet(s) PO QHS No Start Date 02/28/2016 Inactive honey topical RxNorm: topical No Start Date 06/16/2018 Inactive Clonidine 0.2 mg Tab RxNorm: 435315 1 Tablet(s) PO TID No Start Date 01/12/2010 Inactive ketorolac 10 mg tablet RxNorm: 529888 1 Tablet(s) PO Q8H No Start D ate 03/18/2012 Inactive as needed for headache Singulair 10 mg Tab RxNorm: 950946 1 Tablet(s) PO QD No Start Date Inactive Premarin 1.25 mg Tab RxNorm: 483477 1 Tablet(s) PO QD No Start Date 1 Inactive Flonase 50 mcg/Actuation Nasal [place] RxNorm: 4415772 1 [place] AL BID No Start Date 03/18/2012 Inactive Terbinafine 250 mg Tab RxNorm: 480997 1 Tablet(s) PO QD No Start Da te 04/03/2010 Inactive Fexofenadine 180 mg Tab RxNorm: 6910304 1 Tablet(s) PO QD No Start Date 09/06/2015 Inactive baclofen 20 mg tablet RxNorm: 485233 1 Tablet(s) PO TID as needed N o Start Date 05/25/2014 Inactive Diovan 160 mg Tab RxNorm: 401627 1 Tablet(s) PO QD No Start Date 09/12 Inactive mupirocin 2 % topical ointment RxNorm: 090246 1 Application TOP QID No Start Date 04/25/2016 Inactive ZOFRAN ODT 4 mg Tab, Rapid Dissolve RxNorm: 929241 1 Tablet(s) PO Q4H No Start Date 03/18/2012 Inactive as needed for nausea and vomiting Alprazolam 0.5 mg Tab RxNorm: 303034 1 Tablet(s) PO BID PRN No Star t Date 01/12/2010 Inactive cyclobenzaprine 10 mg tablet RxNorm: 722617 1 Tablet(s) PO TID as needed for muscle spasm No Start Date 10/08/2017 Inactive Albuterol 0.083% Aerosol Solution RxNorm: 1 Appl ication INH Q4H Use one ampule every 4 hrs with nebulizer as needed for shortness of breath. No Start Date 10/09/2010 Inactive lorazepam 1 mg tablet RxNorm: 331407 1 1/2 Tablet(s) PO QHS No Star t Date 02/02/2016 Inactive Melatonin 3 mg Tab RxNorm: 580187 Tablet(s) PO PRN No Start Date 07/11 Inactive Medrol (Dustin) 4 mg Tabs in a Dose Pack RxNorm: 737887 Tablet(s) PO N o Start Date 11/28/2010 Inactive lorazepam 1 mg tablet RxNorm: 412607 1 Tablet(s) PO QHS as need ed for sleep No Start Date 01/30/2016 Inactive hydrocodone-acetaminophen 10 mg-325 mg Tab RxNorm: 5524211 1-2 Tablet(s) PO QID as needed for severe pain No Start Date 03/24/2012 Inactive celecoxib 200 mg capsule RxNorm: 536601 1 Capsule(s) PO BID No Star t Date 06/26/2019 Inactive amlodipine 5 mg-benazepril 20 mg capsule RxNorm: 795811 1 Capsu le(s) PO QD No Start Date 04/10/2017 Inactive Bystolic 20 mg tablet RxNorm: 630681 1/2 Tablet(s) PO QAM No Start Date 01/23/2016 Inactive Bystolic 20 mg tablet RxNorm: 812926 1 Tablet(s) PO QAM No Start Da te 04/25/2016 Inactive Ambien 10 mg Tab RxNorm: 487758 1 Tablet(s) PO QHS No Start Date 05/11 Inactive Klor-Con 8 mEq Tab RxNorm: 573377 1 Tablet(s) PO QD when takes lasix No Start Date 03/06/2010 Inactive aspirin 81 mg tablet RxNorm: 045648 1 Tablet(s) PO QD No Start Date 0 01/29/2018 Inactive hydrocodone-acetaminophen 10 mg-325 mg Tab RxNorm: 9324303 1-2 T ablet(s) PO QID No Start Date 01/10/2012 Inactive Bystolic 10 mg tablet RxNorm: 670479 1 Tablet(s) PO QAM take one daily in the morning. No Start Date 05/28/2013 Inactive nystatin 100,000 unit/mL Oral Susp RxNorm: 551415 5 Milliliter( s) PO QID No Start Date 03/18/2012 Inactive swish and spit scopolamine 1.5 mg 72 hr Transderm Patch RxNorm: 711759 1 Unit Dose TD Q72H for motion sickness No Start Date 12/23/2013 Inactive Hydrocodone-Acetaminophen 10 mg-750 mg Tab RxNorm: 672177 1 Tablet(s) PO Q4H PRN No Start Date 01/12/2010 Inactive Soma 350 mg tablet RxNorm: 196278 1 Tablet(s) PO TID as needed for spasm No Start Date 01/12/2013 Inactive baclofen 10 mg tablet RxNorm: 273761 1 Tablet(s) PO TID as needed for muscle spasm No Start Date 09/18/2019 Inactive Soma 350 mg Tab RxNorm: 763706 1 Tablet(s) PO TID for spasm No Star t Date 01/31/2012 Inactive Co Q-10 400 mg capsule RxNorm: 772311 1 Capsule(s) PO QD No Start D ate 01/21/2019 Inactive nystatin 100,000 unit/gram topical cream RxNorm: 233117 Applica tion TOP BID No Start Date 03/22/2015 Inactive Exforge 5 mg-160 mg Tab RxNorm: 370981 1 Tablet(s) PO QD No Start D ate 10/09/2010 Inactive Hydrocodone-Acetaminophen 7.5 mg-650 mg Tab RxNorm: 865202 1 Ta blet(s) PO Q4H No Start Date 03/07/2010 Inactive Robaxin-750 750 mg Tab RxNorm: 596095 1-2 Tablet(s) PO TID prn spasm No Start Date 05/21/2011 Inactive amlodipine 5 mg tablet RxNorm: 453298 1 Tablet(s) PO QHS No Start D ate 09/29/2015 Inactive oxycodone-acetaminophen 10 mg-325 mg tablet RxNorm: 8490770 1-2 Tablet(s) PO Q6H No Start Date 06/16/2018 Inactive Triamterene-Hydrochlorothiazide 75 mg-50 mg Tab RxNorm: 3108 18 1 Tablet(s) PO QD No Start Date 02/08/2010 Inactive Alprazolam 0.5 mg Tab RxNorm: 066231 2 Tablet(s) PO QD prn No Start Date 03/07/2010 Inactive Bystolic 20 mg tablet RxNorm: 393457 1 Tablet(s) PO QAM No Start Da te 08/17/2015 Inactive ketorolac 10 mg tablet RxNorm: 384304 1 Tablet(s) PO QID prn he adache No Start Date 07/17/2012 Inactive acyclovir 800 mg Tab RxNorm: 199783 1 Tablet(s) PO BID No Start Date 03/18/2012 Inactive duloxetine 60 mg capsule,delayed release RxNorm: 955242 1 Capsu le(s) PO QD No Start Date 09/29/2015 Inactive Norvasc 5 mg tablet RxNorm: 784014 1 Tablet(s) PO QHS No Start Date 1 10/18/2014 Inactive promethazine 25 mg tablet RxNorm: 904179 1 Tablet(s) PO Q8H use sparingly No Start Date 07/22/2013 Inactive alprazolam 0.5 mg tablet RxNorm: 415696 3 Tablet(s) PO QHS No Start Date 06/06/2015 Inactive Lunesta 3 mg tablet RxNorm: 870420 1 Tablet(s) PO QHS No Start Date 0 09/20/2017 Inactive hydrocodone-acetaminophen 10 mg-325 mg Tab RxNorm: 3153328 1-2 Tablet(s) PO TID as needed for pain No Start Date 12/10/2011 Inactive Coricidin HBP Cough & Cold 4 mg-30 mg Tab RxNorm: 4469598 Tablet (s) PO PRN No Start Date 10/09/2010 Inactive Bactroban 2 % Ointment RxNorm: 391735 Application TOP QID to so res No Start Date 02/22/2012 Inactive Flonase 50 mcg/actuation Nasal [place] RxNorm: 971305 2 [place] QHS No Start Date 03/03/2014 Inactive Medication Administered No Medication Administered data Immunizations Vaccine Codes Date Status Tetanus, Diptheria, Pertussis CVX: 115 02/27/2014 Results Observation Observation Code Item Item Code Result Date S [facility] Location COMPREHENSIVE METABOLIC 49567 AST 15 U/L 2019 Unknown COMPREHENSIVE METABOLIC 05115 ALT 13 U/L 2019 Unknown COMPREHENSIVE METABOLIC 61718 BUN 12 mg/dL 2019 Unknown COMPREHENSIVE METABOLIC 34479 ALBUMIN 3.9 g/dL 2019 Unknown COMPREHENSIVE METABOLIC 73585 CHLORIDE 97 mmol/L 2019 Unknown COMPREHENSIVE METABOLIC 91960 Bili Total 0.4 mg/dL 09/29 Unknown COMPREHENSIVE METABOLIC 26887 ALK PHOS 130 U/L 2019 Unknown COMPREHENSIVE METABOLIC 77651 SODIUM 136 mmol/L 09/29 Unknown COMPREHENSIVE METABOLIC 91600 CREATININE 0.92 mg/dL 09/11 Unknown COMPREHENSIVE METABOLIC 28710 CALCIUM 9.1 mg/dL 2019 Unknown COMPREHENSIVE METABOLIC 91000 POTASSIUM 4.4 mmol/L 09/29 Unknown COMPREHENSIVE METABOLIC 70193 Total Protein 6.2 g/dL Unknown COMPREHENSIVE METABOLIC 37860 Glucose 391 mg/dL 2019 Unknown COMPREHENSIVE METABOLIC 57227 Bicarbonate 30 mmol/L 09/11 Unknown COMPREHENSIVE METABOLIC 29527 AGAP 9 mmol/L 2019 Unknown MEAN GLUC 9570906 Calc Mean Gluc 332 mg/dL 09/29/2019 Unkn own COMPLETE BLOOD COUNT [id number] WBC 7.0 10e9/L 09/29/19 Unknown COMPLETE BLOOD COUNT [id number] RBC 4.69 10e12/L 2019 Unknown COMPLETE BLOOD COUNT 0885764 HEMOGLOBIN 14.6 g/dL 09/29/19 Unknown COMPLETE BLOOD COUNT 7455862 HEMATOCRIT 45.2 % 09/29/19 Unknown COMPLETE BLOOD COUNT 1143962 MCV 96.4 fL 0 Unknown COMPLETE BLOOD COUNT [id number] MCH 31.1 pg 0 Unknown COMPLETE BLOOD COUNT 3500340 MCHC 32.3 g/dL 0 Unknown COMPLETE BLOOD COUNT 9555974 PLATELET COUNT 209 10e9/L Unknown COMPLETE BLOOD COUNT 6973621 Mean Plt Volume 9.8 fL Unknown COMPLETE BLOOD COUNT 9071047 Neut Auto 48.1 % 0 Unknown COMPLETE BLOOD COUNT 7393440 Lymph Auto 36.5 % 09/29/19 Unknown COMPLETE BLOOD COUNT [id number] [place] Auto 8.6 % 0 Unknown COMPLETE BLOOD COUNT [id number] RDW 13.4 % 0 Unknown COMPLETE BLOOD COUNT [id number] Eos Auto 6.5 % 0 Unknown COMPLETE BLOOD COUNT 6247977 Baso Auto 0.3 % 0 Unknown COMPLETE BLOOD COUNT 6895036 Neutrophil Abs 3.37 10e9/L Unknown COMPLETE BLOOD COUNT [id number] Lymphocyte Abs 2.56 10e9/L Unknown COMPLETE BLOOD COUNT [id number] Monocyte Abs 0.60 10e9/L 09/11 Unknown COMPLETE BLOOD COUNT [id number] Eosinophil Abs 0.46 10e9/L Unknown COMPLETE BLOOD COUNT 6129896 RDW-SD 45.9 fL 0 Unknown COMPLETE BLOOD COUNT [id number] Basophil Abs 0.02 10e9/L 09/11 Unknown LIPID GROUP 09432 Cholesterol 248 mg/dL 09/29/2019 Unkno wn LIPID GROUP 62405 Triglyceride 898 mg/dL 09/29/2019 Unkn own LIPID GROUP 09639 HDL CHOLESTEROL 41 mg/dL 09/29/2019 U nknown LIPID GROUP 17253 Chol/HDL Ratio 6.05 ratio 09/29/2019 U nknown LIPID GROUP 19481 NON-HDL Chol 207 mg/dL 09/29/2019 Unkn own LIPID GROUP 96282 LDL Cholesterol N/A Trig >400 020 Unknown GLYCOSYLATED HEMOGLOBIN TEST 13025 Hgb A1c 64772-7 13.2 % 0 09/29/2019 Unknown FREE T4 72799 T4 Free 0.75 ng/dL 09/29/2019 Unknown GFR CALC 4613387 GFR Non Afr Amr >60 mL/min 09/29/2019 Un known GFR CALC 8942117 GFR Afr Amr >60 mL/min 09/29/2019 Unknow n THYROID STIMULATING HORMONE 46285 TSH 4.245 uIU/mL 09/29/2019 Unknown COMPLETE BLOOD COUNT 1152127 WBC 10.7 10e9/L 018 Unknown COMPLETE BLOOD COUNT [id number] RBC 4.59 10e12/L 2017 Unknown COMPLETE BLOOD COUNT 2570317 HEMOGLOBIN 14.8 g/dL 12/11/19 18 Unknown COMPLETE BLOOD COUNT 9304230 HEMATOCRIT 44.9 % 12/11/19 18 Unknown COMPLETE BLOOD COUNT 8721337 MCV 97.8 fL 8 Unknown COMPLETE BLOOD COUNT 4876857 MCH 32.2 pg 8 Unknown COMPLETE BLOOD COUNT 7263128 MCHC 33.0 g/dL 8 Unknown COMPLETE BLOOD COUNT [id number] PLATELET COUNT 261 10e9/L 10/2017 Unknown COMPLETE BLOOD COUNT 0060993 Mean Plt Volume 9.5 fL 10/2017 Unknown COMPLETE BLOOD COUNT 5076109 Neut Auto 59.9 % 8 Unknown COMPLETE BLOOD COUNT 2873593 Lymph Auto 27.4 % 12/11/19 18 Unknown COMPLETE BLOOD COUNT 0444768 [place] Auto 8.2 % 8 Unknown COMPLETE BLOOD COUNT 2586050 RDW 13.3 % 8 Unknown COMPLETE BLOOD COUNT 5090486 Eos Auto 4.1 % 8 Unknown COMPLETE BLOOD COUNT 9354928 Baso Auto 0.4 % 8 Unknown COMPLETE BLOOD COUNT 9006323 Neutrophil Abs 6.41 10e9/L Unknown COMPLETE BLOOD COUNT 7686761 Lymphocyte Abs 2.93 10e9/L Unknown COMPLETE BLOOD COUNT [id number] Monocyte Abs 0.88 10e9/L 10/2017 Unknown COMPLETE BLOOD COUNT [id number] Eosinophil Abs 0.44 10e9/L Unknown COMPLETE BLOOD COUNT [id number] RDW-SD 46.2 fL 8 Unknown COMPLETE BLOOD COUNT [id number] Basophil Abs 0.04 10e9/L 10/2017 Unknown THYROID STIMULATING HORMONE 22953 TSH 4.015 uIU/mL 12/10/2017 Unknown COMPREHENSIVE METABOLIC 51136 AST 25 U/L 2017 Unknown COMPREHENSIVE METABOLIC 26325 ALT 17 U/L 2017 Unknown COMPREHENSIVE METABOLIC 61043 BUN 19 mg/dL 2017 Unknown COMPREHENSIVE METABOLIC 53565 ALBUMIN 4.0 g/dL 2017 Unknown COMPREHENSIVE METABOLIC 33550 CHLORIDE 91 mmol/L 2017 Unknown COMPREHENSIVE METABOLIC 84718 Bili Total 0.5 mg/dL 12/10 Unknown COMPREHENSIVE METABOLIC 54000 ALK PHOS 75 U/L 2017 Unknown COMPREHENSIVE METABOLIC 78932 SODIUM 136 mmol/L 12/10 Unknown COMPREHENSIVE METABOLIC 02834 CREATININE 1.05 mg/dL 10/2017 Unknown COMPREHENSIVE METABOLIC 54912 CALCIUM 8.9 mg/dL 2017 Unknown COMPREHENSIVE METABOLIC 96323 POTASSIUM 3.4 mmol/L 12/10 Unknown COMPREHENSIVE METABOLIC 45132 Total Protein 6.5 g/dL Unknown COMPREHENSIVE METABOLIC 04298 Glucose 138 mg/dL 2017 Unknown COMPREHENSIVE METABOLIC 84188 Bicarbonate 35 mmol/L 10/2017 Unknown COMPREHENSIVE METABOLIC 55528 AGAP 10 mmol/L 2017 Unknown MEAN GLUC 8781295 Calc Mean Gluc 171 mg/dL 12/10/2017 Unkn own LIPID GROUP 31477 Cholesterol 204 mg/dL 12/10/2017 Unkno wn LIPID GROUP 35140 Triglyceride 411 mg/dL 12/10/2017 Unkn own LIPID GROUP 18259 HDL CHOLESTEROL 50 mg/dL 12/10/2017 U nknown LIP[facility] GROUP 58395 Chol/HDL Ratio 4.08 ratio 12/10/2017 U nknown LIPID GROUP 34280 NON-HDL Chol 154 mg/dL 12/10/2017 Unkn own LIPID GROUP 33104 LDL Cholesterol N/A Trig >400 018 Unknown GLYCOSYLATED HEMOGLOBIN TEST 04014 Hgb A1c 51540-0 7.6 % 0 12/10/2017 Unknown FREE T4 15333 T4 Free 1.40 ng/dL 12/10/2017 Unknown GFR CALC 5421536 GFR Non Afr Amr 55 mL/min 12/10/2017 Unk nown GFR CALC 4774607 GFR Afr Amr >60 mL/min 12/10/2017 Unknow n GFR CALC 0509429 GFR Non Afr Amr 48 mL/min 06/28/2017 Unk nown GFR CALC 5062606 GFR Afr Amr 59 mL/min 06/28/2017 Unknown COMPREHENSIVE METABOLIC 36900 AST 32 U/L 2016 Unknown COMPREHENSIVE METABOLIC 45829 ALT 22 U/L 2016 Unknown COMPREHENSIVE METABOLIC 47137 BUN 23 mg/dL 2016 Unknown COMPREHENSIVE METABOLIC 95610 ALBUMIN 4.7 g/dL 2016 Unknown COMPREHENSIVE METABOLIC 03464 CHLORIDE 89 mmol/L 2016 Unknown COMPREHENSIVE METABOLIC 27486 Bili Total 0.5 mg/dL 06/28 Unknown COMPREHENSIVE METABOLIC 78460 ALK PHOS 90 U/L 2016 Unknown COMPREHENSIVE METABOLIC 34200 SODIUM 135 mmol/L 06/28 Unknown COMPREHENSIVE METABOLIC 27837 CREATININE 1.18 mg/dL 06/10 Unknown COMPREHENSIVE METABOLIC 95795 CALCIUM 9.7 mg/dL 2016 Unknown COMPREHENSIVE METABOLIC 77764 POTASSIUM 3.5 mmol/L 06/28 Unknown COMPREHENSIVE METABOLIC 03415 Total Protein 7.7 g/dL Unknown COMPREHENSIVE METABOLIC 02723 Glucose 129 mg/dL 2016 Unknown COMPREHENSIVE METABOLIC 86959 Bicarbonate 34 mmol/L 06/10 Unknown COMPREHENSIVE METABOLIC 62407 AGAP 12 mmol/L 2016 Unknown LIPID GROUP 92006 HDL TEST 64 MG/DL 08/27/2014 Unknown LIPID GROUP 76002 TRIG 222 MG/DL 08/27/2014 Unknown LIPID GROUP 10625 TEST LDL 209 MG/DL 08/27/2014 Unknown LIPID GROUP 13809 CHOL 317 MG/DL 08/27/2014 Unknown LIPID GROUP 10387 RCHOL/HDL 4.95 RATIO 08/27/2014 Unknow n LIPID GROUP 58582 NON-HDL CH 253 MG/DL 08/27/2014 Unknow n GFR CALC 8226593 GFR AA >60 ML/MIN 08/27/2014 Unknown GFR CALC 8264399 GFR NON-AA >60 ML/MIN 08/27/2014 Unknown COMPLETE BLOOD COUNT 9480927 WBC 7.0 10e9/L 08/27/20 14 Unknown COMPLETE BLOOD COUNT 7299065 RBC 4.98 10e12/L 2013 Unknown COMPLETE BLOOD COUNT 4663768 HGB 15.6 g/dL 4 Unknown COMPLETE BLOOD COUNT 6552191 HCT DET 46.5 % 4 Unknown COMPLETE BLOOD COUNT 9962753 MCV 93.4 fL 4 Unknown COMPLETE BLOOD COUNT 0529478 MCH 31.3 pg 4 Unknown COMPLETE BLOOD COUNT 9862758 MCHC 33.5 g/dL 4 Unknown COMPLETE BLOOD COUNT 1347861 PLT 309 10e9/L 08/27/20 14 Unknown COMPLETE BLOOD COUNT 8034792 MPV 9.6 fL 4 Unknown COMPLETE BLOOD COUNT 1939970 CADEN % 57.2 % 4 Unknown COMPLETE BLOOD COUNT 1006683 LY % 33.2 % 4 Unknown COMPLETE BLOOD COUNT 1436172 MON % 7.3 % 4 Unknown COMPLETE BLOOD COUNT 9701161 EOS % 2.0 % 4 Unknown COMPLETE BLOOD COUNT 6148990 BASO % 0.3 % 4 Unknown COMPLETE BLOOD COUNT 5372392 RDW 13.7 % 4 Unknown COMPLETE BLOOD COUNT 7325089 ABS CADEN 4.00 10e9/L 014 Unknown COMPLETE BLOOD COUNT 5639619 ABS LYMPH 2.32 10e9/L 014 Unknown COMPLETE BLOOD COUNT [id number] ABS MONO 0.51 10e9/L 014 Unknown COMPLETE BLOOD COUNT [id number] ABS EOS 0.14 10e9/L 014 Unknown COMPLETE BLOOD COUNT 4941706 ABS BASO 0.02 10e9/L 014 Unknown COMPLETE BLOOD COUNT 7554897 RDW-SD 45.1 fL 4 Unknown COMPREHENSIVE METABOLIC 78491 AST 13 U/L 2013 Unknown COMPREHENSIVE METABOLIC 97261 ALT 11 IU/L 2013 Unknown COMPREHENSIVE METABOLIC 33263 BUN 23 MG/DL 2013 Unknown COMPREHENSIVE METABOLIC 57608 ALBUMIN 4.4 GM/DL 2013 Unknown COMPREHENSIVE METABOLIC 43182 CHLORIDE 99 MMOL/L 2013 Unknown COMPREHENSIVE METABOLIC 23653 BILI TOT 0.5 MG/DL 2013 Unknown COMPREHENSIVE METABOLIC 10816 ALK PHOS 56 U/L 2013 Unknown COMPREHENSIVE METABOLIC 97939 SODIUM 138 MMOL/L 08/27 Unknown COMPREHENSIVE METABOLIC 98544 CREATININE 0.95 MG/DL 08/10 Unknown COMPREHENSIVE METABOLIC 63059 CALCIUM 9.8 MG/DL 2013 Unknown COMPREHENSIVE METABOLIC 07808 POTASSIUM 3.5 MMOL/L 08/27 Unknown COMPREHENSIVE METABOLIC 34663 PROT TOT 6.8 GM/DL 2013 Unknown COMPREHENSIVE METABOLIC 93165 Glucose 90 MG/DL 2013 Unknown COMPREHENSIVE METABOLIC 37172 BICARB 34 MMOL/L 2013 Unknown COMPREHENSIVE METABOLIC 20681 ANION GAP 5 MEQ/L 2013 Unknown LIPASE 77881 LIPASE 11 IU/L 07/21/2014 Unknown AMYLASE 48132 AMYLASE 39 IU/L 07/21/2014 Unknown HEMOGLOBIN A1C (GLYCOSYLATED) 3948695 A1C HPLC 99200-8 6.2 % 03/05/2013 Unknown THYROID STIMULATING HORMONE 81877 TSH 6.986 uIU/ML 03/05/2013 Unknown COMPLETE BLOOD COUNT 0322430 WBC 12.7 10e9/L 013 Unknown COMPLETE BLOOD COUNT 3257442 RBC 4.53 10e12/L 2012 Unknown COMPLETE BLOOD COUNT 3069141 HGB 14.7 g/dL 3 Unknown COMPLETE BLOOD COUNT 5214275 HCT DET 43.1 % 3 Unknown COMPLETE BLOOD COUNT 5903781 MCV 95.1 fL 3 Unknown COMPLETE BLOOD COUNT 7725776 MCH 32.5 pg 3 Unknown COMPLETE BLOOD COUNT 6821546 MCHC 34.1 g/dL 3 Unknown COMPLETE BLOOD COUNT 3157450 PLT 346 10e9/L 03/05/20 13 Unknown COMPLETE BLOOD COUNT 4629795 MPV 9.5 fL 3 Unknown COMPLETE BLOOD COUNT 9828881 CADEN % 67.6 % 3 Unknown COMPLETE BLOOD COUNT 6243652 LY % 22.1 % 3 Unknown COMPLETE BLOOD COUNT 7938122 MON % 6.6 % 3 Unknown COMPLETE BLOOD COUNT 4420614 EOS % 3.3 % 3 Unknown COMPLETE BLOOD COUNT 0899937 BASO % 0.4 % 3 Unknown COMPLETE BLOOD COUNT 3027960 RDW 14.0 % 3 Unknown COMPLETE BLOOD COUNT 9261137 ABS CADEN 8.59 10e9/L 013 Unknown COMPLETE BLOOD COUNT 8299229 ABS LYMPH 2.81 10e9/L 013 Unknown COMPLETE BLOOD COUNT 0884714 ABS MONO 0.84 10e9/L 013 Unknown COMPLETE BLOOD COUNT 4046039 ABS EOS 0.42 10e9/L 013 Unknown COMPLETE BLOOD COUNT [id number] ABS BASO 0.05 10e9/L 013 Unknown COMPLETE BLOOD COUNT 5261998 RDW-SD 46.0 fL 3 Unknown FREE T4 70584 FREE T4 1.14 NG/DL 03/05/2013 Unknown COMPREHENSIVE METABOLIC 70663 AST 17 U/L 2012 Unknown COMPREHENSIVE METABOLIC 16152 ALT 12 IU/L 2012 Unknown COMPREHENSIVE METABOLIC 05847 BUN 24 MG/DL 2012 Unknown COMPREHENSIVE METABOLIC 58019 ALBUMIN 4.2 GM/DL 2012 Unknown COMPREHENSIVE METABOLIC 06341 CHLORIDE 93 MMOL/L 2012 Unknown COMPREHENSIVE METABOLIC 33432 BILI TOT 0.5 MG/DL 2012 Unknown COMPREHENSIVE METABOLIC 34379 ALK PHOS 75 U/L 2012 Unknown COMPREHENSIVE METABOLIC 54136 SODIUM 141 MMOL/L 03/05 Unknown COMPREHENSIVE METABOLIC 30414 CREATININE 1.36 MG/DL 02/09 Unknown COMPREHENSIVE METABOLIC 78077 CALCIUM 9.2 MG/DL 2012 Unknown COMPREHENSIVE METABOLIC 13220 POTASSIUM 3.1 MMOL/L 03/05 Unknown COMPREHENSIVE METABOLIC 59102 PROT TOT 6.9 GM/DL 2012 Unknown COMPREHENSIVE METABOLIC 79294 Glucose 123 MG/DL 2012 Unknown COMPREHENSIVE METABOLIC 36830 BICARB 36 MMOL/L 2012 Unknown COMPREHENSIVE METABOLIC 03853 ANION GAP 12 MEQ/L 2012 Unknown GFR CALC 7054989 GFR AA 51.0L ML/MIN 03/05/2013 Unknow n GFR CALC 8126372 GFR NON-AA 42.0L ML/MIN 03/05/2013 Unkno wn COMPREHENSIVE METABOLIC 45483 AST 14 U/L 2012 Unknown COMPREHENSIVE METABOLIC 47983 ALT 11 IU/L 2012 Unknown COMPREHENSIVE METABOLIC 49081 BUN 16 MG/DL 2012 Unknown COMPREHENSIVE METABOLIC 17537 ALBUMIN 4.2 GM/DL 2012 Unknown COMPREHENSIVE METABOLIC 97057 CHLORIDE 98 MMOL/L 2012 Unknown COMPREHENSIVE METABOLIC 65220 BILI TOT 0.4 MG/DL 2012 Unknown COMPREHENSIVE METABOLIC 31110 ALK PHOS 77 U/L 2012 Unknown COMPREHENSIVE METABOLIC 82129 SODIUM 139 MMOL/L 09/25 Unknown COMPREHENSIVE METABOLIC 75358 CREATININE 0.86 MG/DL 09/10 Unknown COMPREHENSIVE METABOLIC 84021 CALCIUM 9.5 MG/DL 2012 Unknown COMPREHENSIVE METABOLIC 43828 POTASSIUM 3.8 MMOL/L 09/25 Unknown COMPREHENSIVE METABOLIC 23387 PROT TOT 6.8 GM/DL 2012 Unknown COMPREHENSIVE METABOLIC 91535 Glucose 91 MG/DL 2012 Unknown COMPREHENSIVE METABOLIC 55787 BICARB 32 MMOL/L 2012 Unknown COMPREHENSIVE METABOLIC 31486 ANION GAP 9 MEQ/L 2012 Unknown FREE T4 37740 FREE T4 0.98 NG/DL 09/25/2012 Unknown THYROID STIMULATING HORMONE 75127 TSH 1.736 uIU/ML 09/25/2012 Unknown C-REACTIVE PROTEIN (CRP) QUANT 39307 CRP 2.3 MG/DL 09/25/2012 Unknown COMPLETE BLOOD COUNT [id number] WBC 11.9 10e9/L 013 Unknown COMPLETE BLOOD COUNT 2430297 RBC 4.87 10e12/L 2012 Unknown COMPLETE BLOOD COUNT 6371497 HGB 15.1 g/dL 3 Unknown COMPLETE BLOOD COUNT 7701648 HCT DET 44.8 % 3 Unknown COMPLETE BLOOD COUNT 3752913 MCV 92.0 fL 3 Unknown COMPLETE BLOOD COUNT 2975587 MCH 31.0 pg 3 Unknown COMPLETE BLOOD COUNT 5369002 MCHC 33.7 g/dL 3 Unknown COMPLETE BLOOD COUNT 7549562 PLT 343 10e9/L 09/25/19 13 Unknown COMPLETE BLOOD COUNT 2697605 MPV 9.0 fL 3 Unknown COMPLETE BLOOD COUNT 0174132 CADEN % 68.2 % 3 Unknown COMPLETE BLOOD COUNT 6593900 LY % 22.4 % 3 Unknown COMPLETE BLOOD COUNT 5937024 MON % 6.4 % 3 Unknown COMPLETE BLOOD COUNT 0393976 EOS % 2.7 % 3 Unknown COMPLETE BLOOD COUNT 1058337 BASO % 0.3 % 3 Unknown COMPLETE BLOOD COUNT 3462394 RDW 13.8 % 3 Unknown COMPLETE BLOOD COUNT 4855061 ABS CADEN 8.12 10e9/L 013 Unknown COMPLETE BLOOD COUNT 1489831 ABS LYMPH 2.67 10e9/L 013 Unknown COMPLETE BLOOD COUNT 8251731 ABS MONO 0.76 10e9/L 013 Unknown COMPLETE BLOOD COUNT 9448736 ABS EOS 0.32 10e9/L 013 Unknown COMPLETE BLOOD COUNT 8133991 ABS BASO 0.04 10e9/L 013 Unknown COMPLETE BLOOD COUNT 4622809 RDW-SD 45.6 fL 3 Unknown GFR CALC 3678088 GFR AA >60 ML/MIN 09/25/2012 Unknown GFR CALC 9402577 GFR NON-AA >60 ML/MIN 09/25/2012 Unknown ERYTHROCYTE SEDIMENTATION RATE 24842 ESR 19 MM/HR 05/06/2012 Unknown VITAMIN B 12 FOLIC ACID 17030|25054 VIT B 12 922 PG/ML 04/11 Unknown VITAMIN B 12 FOLIC ACID 63146|23088 FOLIC ACID 13.6 NG/ML Unknown URIC ACID 14856 URIC ACID 7.8 MG/DL 05/06/2012 Unknown COMPLETE BLOOD COUNT 97025 WBC 11.9 10e9/L 012 Unknown COMPLETE BLOOD COUNT 18434 RBC 5.30 10e12/L 2011 Unknown COMPLETE BLOOD COUNT 92619 HGB 16.6 g/dL 2 Unknown COMPLETE BLOOD COUNT 94627 HCT DET 47.2 % 2 Unknown COMPLETE BLOOD COUNT 33631 MCV 89.1 fL 2 Unknown COMPLETE BLOOD COUNT 10024 MCH 31.3 pg 2 Unknown COMPLETE BLOOD COUNT 65747 MCHC 35.2 g/dL 2 Unknown COMPLETE BLOOD COUNT 24795 PLT 362 10e9/L 05/06/20 12 Unknown COMPLETE BLOOD COUNT 92586 MPV 9.4 fL 2 Unknown COMPLETE BLOOD COUNT 49825 CADEN % 68.2 % 2 Unknown COMPLETE BLOOD COUNT 22578 LY % 22.0 % 2 Unknown COMPLETE BLOOD COUNT 61820 MON % 6.9 % 2 Unknown COMPLETE BLOOD COUNT 66182 EOS % 2.6 % 2 Unknown COMPLETE BLOOD COUNT 38167 BASO % 0.3 % 2 Unknown COMPLETE BLOOD COUNT 08486 RDW 12.8 % 2 Unknown COMPLETE BLOOD COUNT 75382 ABS CADEN 8.12 10e9/L 012 Unknown COMPLETE BLOOD COUNT 07521 ABS LYMPH 2.62 10e9/L 012 Unknown COMPLETE BLOOD COUNT 56339 ABS MONO 0.82 10e9/L 012 Unknown COMPLETE BLOOD COUNT 92603 ABS EOS 0.31 10e9/L 012 Unknown COMPLETE BLOOD COUNT 90750 ABS BASO 0.04 10e9/L 012 Unknown COMPLETE BLOOD COUNT 25932 RDW-SD 41.5 fL 2 Unknown GFR CALC 4671517 GFR AA >60 ML/MIN 05/06/2012 Unknown GFR CALC 5311266 GFR NON-AA 58.0L ML/MIN 05/06/2012 Unkno wn FREE T4 03277 FREE T4 1.15 NG/DL 05/06/2012 Unknown THYROID STIMULATING HORMONE 79930 TSH 1.568 uIU/ML 05/06/2012 Unknown COMPREHENSIVE METABOLIC 15629 AST 20 U/L 2011 Unknown COMPREHENSIVE METABOLIC 87207 ALT 12 IU/L 2011 Unknown COMPREHENSIVE METABOLIC 57529 BUN 20 MG/DL 2011 Unknown COMPREHENSIVE METABOLIC 08123 ALBUMIN 4.5 GM/DL 2011 Unknown COMPREHENSIVE METABOLIC 24199 CHLORIDE 91 MMOL/L 2011 Unknown COMPREHENSIVE METABOLIC 84768 BILI TOT 0.4 MG/DL 2011 Unknown COMPREHENSIVE METABOLIC 94520 ALK PHOS 73 U/L 2011 Unknown COMPREHENSIVE METABOLIC 41314 SODIUM 139 MMOL/L 05/06 Unknown COMPREHENSIVE METABOLIC 30759 CREATININE 1.02 MG/DL 04/11 Unknown COMPREHENSIVE METABOLIC 22941 CALCIUM 9.7 MG/DL 2011 Unknown COMPREHENSIVE METABOLIC 58770 POTASSIUM 3.1 MMOL/L 05/06 Unknown COMPREHENSIVE METABOLIC 91776 PROT TOT 7.3 GM/DL 2011 Unknown COMPREHENSIVE METABOLIC 11847 Glucose 118 MG/DL 2011 Unknown COMPREHENSIVE METABOLIC 23610 BICARB 33 MMOL/L 2011 Unknown COMPREHENSIVE METABOLIC 15826 ANION GAP 15 MEQ/L 2011 Unknown Procedures Procedure Codes Date ROUTINE VENIPUNCTURE CPT-4: 31743 09/29/2019 URINALYSIS NONAUTO W/O SCOPE CPT-4: 92210 09/29/2019 COMPREHEN METABOLIC PANEL CPT-4: 86140 09/29/2019 LIPID PANEL CPT-4: 00855 09/29/2019 A1C HPLC CPT-4: 50627 09/29/2019 ASSAY OF FREE THYROXINE CPT-4: 35772 09/29/2019 ASSAY THYROID STIM HORMONE CPT-4: 82672 09/29/2019 COMPLETE CBC W/AUTO DIFF WBC CPT-4: 29674 09/29/2019 URINALYSIS NONAUTO W/O SCOPE CPT-4: 05264 09/30/2018 MICROALBUMIN QUANTITATIVE CPT-4: 77648 09/30/2018 CEFTRIAXONE SODIUM INJECTION CPT-4: J0696 06/19/2018 THER/PROPH/DIAG INJ SC/IM CPT-4: 24826 06/19/2018 CEFTRIAXONE SODIUM INJECTION CPT-4: J0696 06/17/2018 THER/PROPH/DIAG INJ SC/IM CPT-4: 13657 06/17/2018 THER/PROPH/DIAG INJ SC/IM CPT-4: 39150 05/16/2018 KETOROLAC TROMETHAMINE INJ CPT-4: J1885 05/16/2018 ONDANSETRON HCL INJECTION CPT-4: J2405 05/16/2018 THER/PROPH/DIAG INJ SC/IM CPT-4: 43323 05/16/2018 ROUTINE VENIPUNCTURE CPT-4: 22297 03/20/2018 COMPREHEN METABOLIC PANEL CPT-4: 46343 03/20/2018 DEXAMETHASONE SODIUM PHOS CPT-4: J1100 02/11/2018 THER/PROPH/DIAG INJ SC/IM CPT-4: 51831 02/11/2018 TRIAMCINOLONE ACET INJ NOS CPT-4: J3301 02/11/2018 CEFTRIAXONE SODIUM INJECTION CPT-4: J0696 02/01/2018 THER/PROPH/DIAG INJ SC/IM CPT-4: 89601 02/01/2018 CEFTRIAXONE SODIUM INJECTION CPT-4: J0696 01/30/2018 THER/PROPH/DIAG INJ SC/IM CPT-4: 67265 01/30/2018 ROUTINE VENIPUNCTURE CPT-4: 25844 12/10/2017 ASSAY OF FREE THYROXINE CPT-4: 39223 12/10/2017 ASSAY THYROID STIM HORMONE CPT-4: 00686 12/10/2017 COMPREHEN METABOLIC PANEL CPT-4: 74559 12/10/2017 COMPLETE CBC W/AUTO DIFF WBC CPT-4: 44043 12/10/2017 LIPID PANEL CPT-4: 84767 12/10/2017 A1C HPLC CPT-4: 42404 12/10/2017 CEFTRIAXONE SODIUM INJECTION CPT-4: J0696 12/10/2017 THER/PROPH/DIAG INJ SC/IM CPT-4: 22342 12/10/2017 CEFTRIAXONE SODIUM INJECTION CPT-4: J0696 12/07/2017 THER/PROPH/DIAG INJ SC/IM CPT-4: 69902 12/07/2017 DEXAMETHASONE SODIUM PHOS CPT-4: J1100 12/07/2017 THER/PROPH/DIAG INJ SC/IM CPT-4: 04472 12/07/2017 CEFTRIAXONE SODIUM INJECTION CPT-4: J0696 10/08/2017 THER/PROPH/DIAG INJ SC/IM CPT-4: 02990 10/08/2017 CEFTRIAXONE SODIUM INJECTION CPT-4: J0696 09/21/2017 THER/PROPH/DIAG INJ SC/IM CPT-4: 38864 09/21/2017 CEFTRIAXONE SODIUM INJECTION CPT-4: J0696 09/20/2017 THER/PROPH/DIAG INJ SC/IM CPT-4: 74928 09/20/2017 REMOVAL OF NAIL PLATE CPT-4: 70281 08/29/2017 THER/PROPH/DIAG INJ SC/IM CPT-4: 84123 08/29/2017 TRIAMCINOLONE ACET INJ NOS CPT-4: J3301 08/29/2017 CEFTRIAXONE SODIUM INJECTION CPT-4: J0696 08/29/2017 THER/PROPH/DIAG INJ SC/IM CPT-4: 90212 08/29/2017 DESTRUCT PREMALG LESION (Cryosurgery) CPT-4: 75585 ROUTINE VENIPUNCTURE CPT-4: 59185 06/27/2017 ASSAY OF FREE THYROXINE CPT-4: 83366 06/27/2017 ASSAY THYROID STIM HORMONE CPT-4: 22769 06/27/2017 COMPREHEN METABOLIC PANEL CPT-4: 35193 06/27/2017 COMPLETE CBC W/AUTO DIFF WBC CPT-4: 72555 06/27/2017 EXC TR-EXT B9+REECE 0.5 CM< CPT-4: 74435 01/24/2017 THER/PROPH/DIAG INJ SC/IM CPT-4: 81730 08/02/2016 DEXAMETHASONE SODIUM PHOS CPT-4: J1100 08/02/2016 DESTRUCT PREMALG LESION (Cryosurgery) CPT-4: 60052 EXC TR-EXT B9+REECE 0.5 CM< CPT-4: 77977 08/01/2016 AEROBIC WOUND CULTURE & STN CPT-4: 39873 07/06/2016 CEFTRIAXONE SODIUM INJECTION CPT-4: J0696 05/25/2016 THER/PROPH/DIAG INJ SC/IM CPT-4: 38140 05/25/2016 THER/PROPH/DIAG INJ SC/IM CPT-4: 93014 04/26/2016 DEXAMETHASONE SODIUM PHOS CPT-4: J1100 04/26/2016 CEFTRIAXONE SODIUM INJECTION CPT-4: J0696 04/26/2016 THER/PROPH/DIAG INJ SC/IM CPT-4: 95859 04/26/2016 THER/PROPH/DIAG INJ SC/IM CPT-4: 79310 02/09/2016 TRIAMCINOLONE ACET INJ NOS CPT-4: J3301 02/09/2016 URINALYSIS NONAUTO W/O SCOPE CPT-4: 66502 01/24/2016 URINE CULTURE/ COLONY COUNT CPT-4: 18668 01/24/2016 THER/PROPH/DIAG INJ SC/IM CPT-4: 77153 12/08/2015 TRIAMCINOLONE ACET INJ NOS CPT-4: J3301 12/08/2015 THER/PROPH/DIAG INJ SC/IM CPT-4: 37028 10/07/2015 TRIAMCINOLONE ACET INJ NOS CPT-4: J3301 10/07/2015 DESTRUCT PREMALG LESION (Cryosurgery) CPT-4: 15310 THER/PROPH/DIAG INJ SC/IM CPT-4: 41190 03/16/2015 METHYLPREDNISOLONE 40 MG INJ CPT-4: J1030 03/16/2015 DESTRUCT PREMALG LESION (Cryosurgery) CPT-4: 19383 THER/PROPH/DIAG INJ SC/IM CPT-4: 43253 09/11/2014 METHYLPREDNISOLONE 40 MG INJ CPT-4: J1030 09/11/2014 TRIAMCINOLONE ACET INJ NOS CPT-4: J3301 09/11/2014 CEFTRIAXONE SODIUM INJECTION CPT-4: J0696 09/11/2014 THER/PROPH/DIAG INJ SC/IM CPT-4: 03195 09/11/2014 ROUTINE VENIPUNCTURE CPT-4: 75609 08/27/2014 COMPREHEN METABOLIC PANEL CPT-4: 01048 08/27/2014 COMPLETE CBC W/AUTO DIFF WBC CPT-4: 27357 08/27/2014 LIPID PANEL CPT-4: 34776 08/27/2014 ROUTINE VENIPUNCTURE CPT-4: 99673 07/21/2014 ASSAY OF AMYLASE CPT-4: 19635 07/21/2014 ASSAY OF LIPASE CPT-4: 81332 07/21/2014 THER/PROPH/DIAG INJ SC/IM CPT-4: 08504 07/15/2014 TRIAMCINOLONE ACET INJ NOS CPT-4: J3301 07/15/2014 ROUTINE VENIPUNCTURE CPT-4: 14925 05/14/2014 ASSAY OF FREE THYROXINE CPT-4: 14444 05/14/2014 ASSAY THYROID STIM HORMONE CPT-4: 25588 05/14/2014 COMPREHEN METABOLIC PANEL CPT-4: 85831 05/14/2014 COMPLETE CBC W/AUTO DIFF WBC CPT-4: 90286 05/14/2014 LIPID PANEL CPT-4: 18042 05/14/2014 CEFTRIAXONE SODIUM INJECTION CPT-4: J0696 04/21/2014 THER/PROPH/DIAG INJ SC/IM CPT-4: 10628 04/21/2014 THER/PROPH/DIAG INJ SC/IM CPT-4: 22226 04/21/2014 TRIAMCINOLONE ACET INJ NOS CPT-4: J3301 04/21/2014 THER/PROPH/DIAG INJ SC/IM CPT-4: 93279 03/04/2014 METHYLPREDNISOLONE 40 MG INJ CPT-4: J1030 03/04/2014 TRIAMCINOLONE ACET INJ NOS CPT-4: J3301 03/04/2014 CEFTRIAXONE SODIUM INJECTION CPT-4: J0696 03/04/2014 THER/PROPH/DIAG INJ SC/IM CPT-4: 25342 03/04/2014 TDAP VACCINE 7 YRS/> IM CPT-4: 99115 02/27/2014 IMMUNIZATION ADMIN CPT-4: 27489 02/27/2014 DESTRUCT PREMALG LESION (Cryosurgery) CPT-4: 55924 DESTRUCT PREMALG LES 2-14 CPT-4: 29592 01/13/2014 THER/PROPH/DIAG INJ SC/IM CPT-4: 71046 10/21/2013 METHYLPREDNISOLONE 40 MG INJ CPT-4: J1030 10/21/2013 TRIAMCINOLONE ACET INJ NOS CPT-4: J3301 10/21/2013 CEFTRIAXONE SODIUM INJECTION CPT-4: J0696 08/27/2013 THER/PROPH/DIAG INJ SC/IM CPT-4: 16191 08/27/2013 THER/PROPH/DIAG INJ SC/IM CPT-4: 46456 08/27/2013 METHYLPREDNISOLONE 40 MG INJ CPT-4: J1030 08/27/2013 TRIAMCINOLONE ACET INJ NOS CPT-4: J3301 08/27/2013 THER/PROPH/DIAG INJ SC/IM CPT-4: 69974 06/23/2013 METHYLPREDNISOLONE 40 MG INJ CPT-4: J1030 06/23/2013 TRIAMCINOLONE ACET INJ NOS CPT-4: J3301 06/23/2013 THER/PROPH/DIAG INJ SC/IM CPT-4: 17332 05/26/2013 METHYLPREDNISOLONE 40 MG INJ CPT-4: J1030 05/26/2013 TRIAMCINOLONE ACET INJ NOS CPT-4: J3301 05/26/2013 ROUTINE VENIPUNCTURE CPT-4: 70172 03/05/2013 ASSAY OF FREE THYROXINE CPT-4: 70272 03/05/2013 ASSAY THYROID STIM HORMONE CPT-4: 33724 03/05/2013 COMPREHEN METABOLIC PANEL CPT-4: 29079 03/05/2013 COMPLETE CBC W/AUTO DIFF WBC CPT-4: 44830 03/05/2013 A1C GLYCOSYLATED HEMOGLOBIN TEST CPT-4: 03294 013 DRAIN/INJECT JOINT/BURSA CPT-4: 96235 12/04/2012 METHYLPREDNISOLONE 40 MG INJ CPT-4: J1030 12/04/2012 TRIAMCINOLONE ACET INJ NOS CPT-4: J3301 12/04/2012 CEFTRIAXONE SODIUM INJECTION CPT-4: J0696 11/21/2012 THER/PROPH/DIAG INJ SC/IM CPT-4: 36787 11/21/2012 THER/PROPH/DIAG INJ SC/IM CPT-4: 47963 10/14/2012 METHYLPREDNISOLONE 40 MG INJ CPT-4: J1030 10/14/2012 TRIAMCINOLONE ACET INJ NOS CPT-4: J3301 10/14/2012 URINALYSIS NONAUTO W/O SCOPE CPT-4: 09043 09/27/2012 ROUTINE VENIPUNCTURE CPT-4: 59023 09/25/2012 ASSAY OF FREE THYROXINE CPT-4: 64605 09/25/2012 ASSAY THYROID STIM HORMONE CPT-4: 94933 09/25/2012 COMPREHEN METABOLIC PANEL CPT-4: 08098 09/25/2012 COMPLETE CBC W/AUTO DIFF WBC CPT-4: 45163 09/25/2012 C-REACTIVE PROTEIN CPT-4: 83885 09/25/2012 THER/PROPH/DIAG INJ SC/IM CPT-4: 47143 08/29/2012 METHYLPREDNISOLONE 40 MG INJ CPT-4: J1030 08/29/2012 TRIAMCINOLONE ACET INJ NOS CPT-4: J3301 08/29/2012 DESTRUCT PREMALG LESION (Cryosurgery) CPT-4: 00303 THER/PROPH/DIAG INJ SC/IM CPT-4: 17450 05/06/2012 METHYLPREDNISOLONE 40 MG INJ CPT-4: J1030 05/06/2012 TRIAMCINOLONE ACET INJ NOS CPT-4: J3301 05/06/2012 VITAMIN B 12 FOLIC ACID CPT-4: 30279|20100 05/06/2012 RBC SED RATE AUTOMATED CPT-4: 97517 05/06/2012 ROUTINE VENIPUNCTURE CPT-4: 23868 05/06/2012 ASSAY OF FREE THYROXINE CPT-4: 86900 05/06/2012 ASSAY THYROID STIM HORMONE CPT-4: 68446 05/06/2012 COMPREHEN METABOLIC PANEL CPT-4: 19406 05/06/2012 COMPLETE CBC W/AUTO DIFF WBC CPT-4: 69450 05/06/2012 ASSAY OF BLOOD/URIC ACID CPT-4: 57017 05/06/2012 THER/PROPH/DIAG INJ SC/IM CPT-4: 72142 03/19/2012 KETOROLAC TROMETHAMINE INJ CPT-4: J1885 03/19/2012 KETOROLAC TROMETHAMINE INJ CPT-4: J1885 01/30/2012 THER/PROPH/DIAG INJ SC/IM CPT-4: 06208 01/30/2012 PROMETHAZINE HCL INJECTION CPT-4: J2550 01/30/2012 THER/PROPH/DIAG INJ SC/IM CPT-4: 96796 01/24/2012 METHYLPREDNISOLONE 40 MG INJ CPT-4: J1030 01/24/2012 TRIAMCINOLONE ACET INJ NOS CPT-4: J3301 01/24/2012 THER/PROPH/DIAG INJ SC/IM CPT-4: 09606 09/13/2011 KETOROLAC TROMETHAMINE INJ CPT-4: J1885 09/13/2011 THER/PROPH/DIAG INJ SC/IM CPT-4: 71410 09/13/2011 PROMETHAZINE HCL INJECTION CPT-4: J2550 09/13/2011 CEFTRIAXONE SODIUM INJECTION CPT-4: J0696 07/20/2011 THER/PROPH/DIAG INJ SC/IM CPT-4: 89677 07/20/2011 THER/PROPH/DIAG INJ SC/IM CPT-4: 71994 07/20/2011 METHYLPREDNISOLONE INJECTION CPT-4: J2930 07/20/2011 URINALYSIS NONAUTO W/O SCOPE CPT-4: 22089 05/09/2011 CEFTRIAXONE SODIUM INJECTION CPT-4: J0696 05/09/2011 THER/PROPH/DIAG INJ SC/IM CPT-4: 33536 05/09/2011 THER/PROPH/DIAG INJ SC/IM CPT-4: 46058 05/09/2011 PROMETHAZINE HCL INJECTION CPT-4: J2550 05/09/2011 HYDRATION IV INFUSION INIT CPT-4: 28501 05/09/2011 DESTRUCT PREMALG LESION (Cryosurgery) CPT-4: 94255 DESTRUCT PREMALG LES 2-14 CPT-4: 15248 07/19/2010 REMOVAL OF SKIN TAGS <W/15 CPT-4: 71992 05/30/2010 THER/PROPH/DIAG INJ SC/IM CPT-4: 02484 04/05/2010 CEFTRIAXONE SODIUM INJECTION CPT-4: J0696 04/05/2010 TRIAMCINOLONE ACET INJ NOS CPT-4: J3301 04/05/2010 METHYLPREDNISOLONE 40 MG INJ CPT-4: J1030 04/05/2010 THER/PROPH/DIAG INJ SC/IM CPT-4: 86166 04/05/2010 TRIAMCINOLONE ACET INJ NOS CPT-4: J3301 03/09/2010 METHYLPREDNISOLONE 40 MG INJ CPT-4: J1030 03/09/2010 THER/PROPH/DIAG INJ SC/IM CPT-4: 01984 03/09/2010 THER/PROPH/DIAG INJ SC/IM CPT-4: 63427 03/09/2010 CEFTRIAXONE SODIUM INJECTION CPT-4: J0696 03/09/2010 Vital Signs Date Vital 10/07/2019 Blood Pressure 1: 134/82 Code: 8480-6 Heart Rate 1: 105 bpm Respiratory Rate: 17 bpm SpO2: 96% Temperature: 36.8 (C) / 98.2 (F) We ight: 198 lbs 09/30/2019 Blood Pressure 1: 132/80 Code: 8480-6 BMI: 35.8 Code: 91577-7 Heart Rate 1: 88 bpm Height: 5'4" Respiratory Rate: 20 bpm SpO2: 95% Tempera ture: 36.9 (C) / 98.5 (F) Weight: 210 lbs 05/28/2019 Blood Pressure 1: 126/82 Code: 8480-6 BMI: 35.0 Code: 61674-6 Heart Rate 1: 88 bpm Height: 5'4" [...] 1: 128/90 Code: 8480-6 BMI: 37.2 Code: 26732-1 Heart Rate 1: 84 bpm Height: 5'4" Respiratory Rate: 20 bpm SpO2: 95% Tempera ture: 36.6 (C) / 97.8 (F) Weight: 217 lbs 08/27/2018 Blood Pressure 1: 128/88 Code: 8480-6 BMI: 38.3 Code: 09628-6 Heart Rate 1: 84 bpm Height: 5'4" [...] 1: 119/72 Code: 8480-6 BMI: 37.4 Code: 65969-0 Heart Rate 1: 82 bpm Height: 5'4" Respiratory Rate: 12 bpm SpO2: 94% Tempera ture: 35.2 (C) / 95.4 (F) Weight: 218 lbs 12/18/2017 Blood Pressure 1: 128/86 Code: 8480-6 BMI: 37.8 Code: 31780-0 Heart Rate 1: 84 bpm Height: 5'4" [...] 1: 128/82 Code: 8480-6 BMI: 35.5 Code: 61049-5 Heart Rate 1: 84 bpm Height: 5'4" [...] 1: 128/82 Code: 8480-6 BMI: 30.2 Code: 72723-1 Heart Rate 1: 80 bpm Height: 5'4" [...] 1: 128/86 Code: 8480-6 BMI: 32.8 Code: 41764-0 Heart Rate 1: 66 bpm Height: 5'4" Respiratory Rate: 18 bpm Temperature: 36 .3 (C) / 97.3 (F) Weight: 191 lbs 06/23/2013 Blood Pressure 1: 132/94 Code: 8480-6 BMI: 34.0 Code: 49276-8 Heart Rate 1: 84 bpm Height: 5'4" Respiratory Rate: 20 bpm Temperature: 36 .8 (C) / 98.2 (F) Weight: 198 lbs 05/26/2013 Blood Pressure 1: 114/80 Code: 8480-6 BMI: 35.0 Code: 48872-2 Heart Rate 1: 80 bpm Height: 5'4" Respiratory Rate: 20 bpm Temperature: 36 .4 (C) / 97.6 (F) Weight: 204 lbs 04/16/2013 Blood Pressure 1: 114/82 Code: 8480-6 BMI: 36.7 Code: 09806-2 Heart Rate 1: 84 bpm Height: 5'4" Respiratory Rate: 20 bpm Temperature: 36 .7 (C) / 98.0 (F) Weight: 214 lbs 03/05/2013 Blood Pressure 1: 136/90 Code: 8480-6 BMI: 37.1 Code: 17055-8 Heart Rate 1: 84 bpm Height: 5'4" [...] 1: 168/114 Code: 8480-6 BMI: 36.2 Code: 93097-9 Heart Rate 1: 104 bpm Height: 5'4" Respiratory Rate: 20 bpm Temperature: 36 .8 (C) / 98.2 (F) Weight: 211 lbs 11/22/2012 Blood Pressure 1: 128/90 Code: 8480-6 Heart Rate 1: 88 bpm Respiratory Rate: 20 bpm SpO2: 96% Temperature: 36.8 (C) / 98.2 (F) 11/21/2012 Blood Pressure 1: 146/100 Code: 8480-6 BMI: 35.7 Code: 30337-4 Heart Rate 1: 96 bpm Height: 5'4" [...] 1: 138/100 Code: 8480-6 BMI: 35.7 Code: 13783-2 Heart Rate 1: 96 bpm Height: 5'4" Respiratory Rate: 20 bpm Temperature: 36 .8 (C) / 98.2 (F) Weight: 208 lbs 05/06/2012 Blood Pressure 1: 154/102 Code: 8480-6 BMI: 34.7 Code: 81028-1 Heart Rate 1: 116 bpm Height: 5'4" Respiratory Rate: 20 bpm Temperature: 36 .8 (C) / 98.2 (F) Weight: 202 lbs 04/03/2012 Blood Pressure 1: 134/94 Code: 8480-6 BMI: 34.8 Code: 80407-6 Heart Rate 1: 108 bpm Height: 5'4" Respiratory Rate: 20 bpm Temperature: 36 .8 (C) / 98.2 (F) Weight: 203 lbs 03/19/2012 Blood Pressure 1: 148/106 Code: 8480-6 BMI: 35.0 Code: 12567-7 Heart Rate 1: 100 bpm Height: 5'4" Respiratory Rate: 20 bpm Temperature: 36 .6 (C) / 97.9 (F) Weight: 204 lbs 02/22/2012 Blood Pressure 1: 146/94 Code: 8480-6 He art Rate 1: 88 bpm 02/21/2012 Blood Pressure 1: 172/120 Code: 8480-6 B lood Pressure 2: 152/106 Code: 8480-6 Heart Rate 1: 116 bpm 02/20/2012 Blood Pressure 1: 160/100 Code: 8480-6 BMI: 32.0 Code: 72838-2 Heart Rate 1: 84 bpm Height: 5'7" Temperature: 36.5 (C) / 97.7 (F) Weight: 204 lbs 01/30/2012 Blood Pressure 1: 152/110 Code: 8480-6 BMI: 32.0 Code: 72082-1 Heart Rate 1: 116 bpm Height: 5'7" Respiratory Rate: 20 bpm Temperature: 37 .0 (C) / 98.6 (F) Weight: 204 lbs 01/24/2012 Blood Pressure 1: 146/100 Code: 8480-6 BMI: 32.0 Code: 63137-5 Heart Rate 1: 100 bpm Height: 5'7" Respiratory Rate: 20 bpm Temperature: 36 .7 (C) / 98.0 (F) Weight: 204 lbs 01/10/2012 Blood Pressure 1: 156/94 Code: 8480-6 BMI: 32.6 Code: 04372-1 Heart Rate 1: 72 bpm Height: 5'7" Respiratory Rate: 20 bpm Temperature: 36 .8 (C) / 98.2 (F) Weight: 208 lbs 12/11/2011 Blood Pressure 1: 146/100 Code: 8480-6 Heart Rat e 1: 116 bpm Height: 5'7" Respiratory Rate: 20 bpm Temperature: 36.9 (C) / 98.4 (F) We ight: 11/09/2011 Blood Pressure 1: 148/96 Code: 8480-6 BMI: 32.1 Code: 55856-4 Heart Rate 1: 116 bpm Height: 5'7" Respiratory Rate: 20 bpm Temperature: 36 .7 (C) / 98.0 (F) Weight: 205 lbs 09/13/2011 Blood Pressure 1: 126/88 Code: 8480-6 Heart Rate 1: 88 bpm Height: 5'7" Respiratory Rate: 20 bpm Temperature: 36.9 (C) / 98.4 (F) We ight: 08/31/2011 Blood Pressure 1: 118/82 Code: 8480-6 BMI: 32.0 Code: 42029-6 Heart Rate 1: 80 bpm Height: 5'7" Temperature: 36.4 (C) / 97.6 (F) Weight: 204 lbs 07/06/2011 Blood Pressure 1: 128/86 Code: 8480-6 BMI: 30.9 Code: 77698-0 Heart Rate 1: 92 bpm Height: 5'7" Respiratory Rate: 20 bpm Temperature: 36 .9 (C) / 98.4 (F) Weight: 197 lbs 06/06/2011 Blood Pressure 1: 112/74 Code: 8480-6 BMI: 31.0 Code: 58912-8 Heart Rate 1: 72 bpm Height: 5'7" [...] 1: 128/92 Code: 8480-6 BMI: 33.6 Code: 95138-4 Heart Rate 1: 104 bpm Height: 5'4" Temperature: 36.8 (C) / 98.3 (F) Weight: 196 lbs Functional Status No Functional Status data Reason For Visit Reason For Visit Effective Dates Notes sores 10/07/2019 follow up 09/30/2019 follow up [...] 02/27/2014 TDAP mole check 01/13/2014 patient stopped takleila elias trazadone back pain 12/24/2013 otalgia 11/12/2013 Needs [...] Check-up Encounters Encounter Performer Location Codes Date ([id number]) OFFICE/OUTPATIENT VISIT EST Diagnosis: Ingrowing nail[ICD10: L60.0] Diagnosis: Type 2 diabetes mellitus with hyperglycemia[ICD10: E11.65] Kathleen Zuniga MARÍA ELENA [employer] CPT-4: 11839 10/07/2019 ([id number]) OFFICE/OUTPATIENT VISIT EST Diagnosis: DM w/o complication type II, uncontrolled[ICD10: E11.65] Diagnosis: Hypertriglyceridemia[ICD10: E78.1] Diagnosis: Essential hypertension[ICD10: I10] María Elena BASURTO [employer] CPT-4: 16894 09/30/2019 ([id number]) NURSE/OUTPATIENT VISIT EST Diagnosis: Essential (primary) hypertension[ICD10: I10] Diagnosis: Cervicalgia[ICD10: M54.2] Diagnosis: Hyperglycemia, unspecified[ICD10: R73.9] Diagnosis: Mixed hyperlipidemia[ICD10: E78.2] María Elena BASURTO [employer] CPT-4: 21326 09/29/2019 ([id number]) OFFICE/OUTPATIENT VISIT EST Diagnosis: Essential (primary) hypertension[ICD10: I10] Diagnosis: Fall from bed, sequela[ICD10: W06.XXXS] María Elena APPIAH DO [facility] [place] CPT-4: 42740 05/28/2019 ([id number]) NURSE/OUTPATIENT VISIT EST Diagnosis: Essential (primary) hypertension[ICD10: I10] María Elena APPIAH DO [facility] [place] CPT-4: 46455 05/19/2019 ([id number]) OFFICE/OUTPATIENT VISIT EST Diagnosis: Essential (primary) hypertension[ICD10: I10] Diagnosis: Type 2 diabetes mellitus with hyperglycemia[ICD10: E11.65] Diagnosis: Intervertebral disc disorders with radiculopathy, 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] Diagnosis: Hormone replacement therapy[ICD10: Z79.890] María Elena APPIAH [facility] CPT-4: 00312 01/22/2019 ([id number]) OFFICE/OUTPATIENT VISIT EST Diagnosis: Essential (primary) hypertension[ICD10: I10] Diagnosis: Type 2 diabetes mellitus with hyperglycemia[ICD10: E11.65] María Elena APPIAH [facility] CPT-4: 22229 09/30/2018 ([id number]) OFFICE/OUTPATIENT VISIT EST Diagnosis: Pain in left elbow[ICD10: M25.522] Diagnosis: Acute stress reaction[ICD10: F43.0] Diagnosis: Primary insomnia[ICD10: F51.01] Diagnosis: Abnormal weight gain[ICD10: R63.5] María Elena APPIAH [facility] CPT-4: 68546 08/27/2018 ([id number]) OFFICE/OUTPATIENT VISIT EST Diagnosis: Acute recurrent sinusitis, unspecified[ICD10: J01.91] Diagnosis: Follicular disorder, unspecified[ICD10: L73.9] Diagnosis: Tinea corporis[ICD10: B35.4] María Elena APPIAH [facility] CPT-4: 05731 08/09/2018 ([id number]) OFFICE/OUTPATIENT VISIT EST Diagnosis: Tinea corporis[ICD10: B35.4] Diagnosis: Anxiety disorder, unspecified[ICD10: F41.9] Diagnosis: Menopausal and female climacteric states[ICD10: N95.1] María Elena APPIAH DO [facility] [place] CPT-4: 31621 07/22/2018 ([id number]) NURSE/OUTPATIENT VISIT EST Diagnosis: Cellulitis of right toe[ICD10: L03.031] María Elena APPIAH DO [facility] [place] CPT-4: 52889 06/19/2018 ([id number]) OFFICE/OUTPATIENT VISIT EST Diagnosis: Cellulitis of right toe[ICD10: L03.031] Kathleen APPIAH DO [facility] [place] CPT-4: 71537 06/17/2018 ([id number]) OFFICE/OUTPATIENT VISIT EST Diagnosis: Migraine without aura, intractable, without status migrainosus[ICD10: G43.019] Diagnosis: Zoster without complications[ICD10: B02.9] Kathleen APPIAH DO [facility] [place] CPT-4: 49473 05/16/2018 ([id number]) OFFICE/OUTPATIENT VISIT EST Diagnosis: Cellulitis of right lower limb[ICD10: L03.115] Kathleen APPIAH DO [facility] [place] CPT-4: 22418 03/20/2018 ([id number]) OFFICE/OUTPATIENT VISIT EST Diagnosis: Cellulitis of right lower limb[ICD10: L03.115] Kathleen APPIAH DO [facility] [place] CPT-4: 81975 03/18/2018 ([id number]) OFFICE/OUTPATIENT VISIT EST Diagnosis: Cellulitis of right lower limb[ICD10: L03.115] Kathleen APPIAH DO [facility] [place] CPT-4: 97725 03/15/2018 ([id number]) OFFICE/OUTPATIENT VISIT EST Diagnosis: Acute sinusitis, unspecified[ICD10: J01.90] Kathleen APPIAH DO [facility] [place] CPT-4: 49239 02/11/2018 ([id number]) NURSE/OUTPATIENT VISIT EST Diagnosis: Otitis media, unspecified, right ear[ICD10: H66.91] María Elena APPIAH DO [facility] [place] CPT-4: 18545 02/01/2018 ([id number]) OFFICE/OUTPATIENT VISIT EST Diagnosis: Acute suppurative otitis media without spontaneous rupture of ear drum, left ear[ICD10: H66.002] Diagnosis: Abnormal weight gain[ICD10: R63.5] Diagnosis: Intervertebral disc disorders with radiculopathy, 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] Kathleen APPIAH DO [facility] [place] CPT-4: 99 214 01/30/2018 ([id number]) PREV VISIT EST AGE 40-64 Diagnosis: Encounter for general adult medical examination without abnormal findings[ICD10: Z00.00] Diagnosis: Essential (primary) hypertension[ICD10: I10] Diagnosis: Mixed hyperlipidemia[ICD10: E78.2] Diagnosis: Type 2 diabetes mellitus with hyperglycemia[ICD10: E11.65] Diagnosis: 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] María Elena APPIAH [employer] CPT-4: 33303 12/18/2017 ([id number]) OFFICE/OUTPATIENT VISIT EST Diagnosis: Cellulitis of right toe[ICD10: L03.031] Diagnosis: Mixed hyperlipidemia[ICD10: E78.2] Diagnosis: Essential (primary) hypertension[ICD10: I10] Diagnosis: Hyperglycemia, unspecified[ICD10: R73.9] Diagnosis: Nontoxic goiter, 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] María Elena Waydawn MARÍA ELENA APPIAH [employer] CPT-4: 30141 12/10/2017 ([id number]) OFFICE/OUTPATIENT VISIT EST Diagnosis: Cellulitis of right toe[ICD10: L03.031] Diagnosis: Acute sinusitis, unspecified[ICD10: J01.90] Kathleen APPIAH [employer] [facility] CPT-4: 03517 12/07/2017 OFFICE/OUTPATIENT VISIT EST Diagnosis: Acute maxillary sinusitis, unspecified[ICD10: J01.00] Kathleen APPIAH [employer] [facility] [place] CPT-4: 17327 10/08/2017 ([id number]) OFFICE/OUTPATIENT VISIT EST Diagnosis: Cellulitis of left toe[ICD10: L03.032] María Elena MARIN Fabiola APPIAH [employer] CPT-4: 53563 09/21/2017 ([id number]) OFFICE/OUTPATIENT VISIT EST Diagnosis: Insomnia, unspecified[ICD10: G47.00] Diagnosis: Major depressive disorder, single episode, unspecified[ICD10: F32.9] Diagnosis: Anxiety disorder, unspecified[ICD10: F41.9] Diagnosis: Cellulitis of left toe[ICD10: L03.032] Diagnosis: Snoring[ICD10: R06.83] Kathleen APPIAH DO [facility] CPT-4: 25159 09/20/2017 ([id number]) OFFICE/OUTPATIENT VISIT EST Diagnosis: Cellulitis of left toe[ICD10: L03.032] María Elena Seamusdawn MONTEROLui CulverJARED Fabiola APPIAH DO [facility] [place] CPT-4: 21082 07/19/2017 OFFICE/OUTPATIENT VISIT EST Diagnosis: Chronic sinusitis, unspecified[ICD10: J32.9] Diagnosis: Generalized hyperhidrosis[ICD10: R61] Kathleen APPIAH [employer] [facility] [place] CPT-4: 03167 06/27/2017 ([id number]) OFFICE/OUTPATIENT VISIT EST Diagnosis: Intervertebral disc disorders with radiculopathy, 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] Diagnosis: Primary insomnia[ICD10: F51.01] Diagnosis: Other fatigue[ICD10: R53.83] María Elena ELLISLINE LucioJj TD [employer] [facility] CPT-4: 13060 04/10/2017 ([id number]) OFFICE/OUTPATIENT VISIT EST Diagnosis: Primary insomnia[ICD10: F51.01] Diagnosis: Localized edema[ICD10: R60.0] Diagnosis: 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] María Elena Td ELLISLINE Fabiola APPIAH [employer] [facility] [place] CPT-4: 52682 12/13/2016 ([id number]) OFFICE/OUTPATIENT VISIT EST Diagnosis: Primary insomnia[ICD10: F51.01] Diagnosis: Cyanosis[ICD10: R23.0] María Elena Seamusdawn JUARES LucioJj CIRO Bazzi [employer] [facility] [place] CPT-4: 47331 11/01/2016 ([id number]) PREV VISIT EST AGE 40-64 Diagnosis: Encounter for gynecological examination (general) (routine) without abnormal findings[ICD10: Z01.419] Diagnosis: Encounter for routine child health examination without abnormal findings[ICD10: Z00.129] María Elena APPIAH [employer] CPT-4: 25088 10/17/2016 ([id number]) OFFICE/OUTPATIENT VISIT EST Diagnosis: Other seasonal allergic rhinitis[ICD10: J30.2] María Elena APPIAH DO [employer] CPT-4: 10154 10/10/2016 ([id number]) OFFICE/OUTPATIENT VISIT EST Diagnosis: Pain in left arm[ICD10: M79.602] Diagnosis: Contact with and (suspected) exposure to potentially hazardous body fluids[ICD10: Z77.21] Diagnosis: 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, 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] Diagnosis: Unspecified open wound, right foot, sequela[ICD10: S91.301S] María Elena APPIAH [employer] CPT-4: 34533 09/19/2016 ([id number]) OFFICE/OUTPATIENT VISIT EST Diagnosis: Chronic sinusitis, unspecified[ICD10: J32.9] Diagnosis: Allergic rhinitis due to pollen[ICD10: J30.1] María Elena APPIAH [employer] CPT-4: 35093 08/24/2016 ([id number]) OFFICE/OUTPATIENT VISIT EST Diagnosis: Acute bronchitis, unspecified[ICD10: J20.9] María Elena APPIAH [employer] CPT-4: 77583 08/16/2016 ([id number]) OFFICE/OUTPATIENT VISIT EST Diagnosis: Otitis media, unspecified, right ear[ICD10: H66.91] Diagnosis: Acute bronchitis, unspecified[ICD10: J20.9] María Elena APPIAH [employer] CPT-4: 99023 08/10/2016 ([id number]) OFFICE/OUTPATIENT VISIT EST Diagnosis: Acute recurrent sinusitis, unspecified[ICD10: J01.91] Diagnosis: Allergic rhinitis due to pollen[ICD10: J30.1] María Elena APPIAH [employer] CPT-4: 83614 08/02/2016 ([id number]) OFFICE/OUTPATIENT VISIT EST Diagnosis: Pain in unspecified joint[ICD10: M25.50] María Elena APPIAH [employer] CPT-4: 83416 07/27/2016 OFFICE/OUTPATIENT VISIT EST Diagnosis: 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] Diagnosis: Acute recurrent sinusitis, unspecified[ICD10: J01.91] Diagnosis: Other fatigue[ICD10: R53.83] Diagnosis: Primary insomnia[ICD10: F51.01] Diagnosis: Pain in unspecified joint[ICD10: M25.50] María Elena APPIAH [employer] [facility] CPT-4: 33797 07/20/2016 ([id number]) OFFICE/OUTPATIENT VISIT EST Diagnosis: Blister (nonthermal), left great toe, initial encounter[ICD10: S90.422A] Loan APPIAH [employer] [facility] CPT-4: 95182 ([id number]) OFFICE/OUTPATIENT VISIT EST Diagnosis: Acute recurrent sinusitis, unspecified[ICD10: J01.91] María Elena APPIAH [employer] CPT-4: 96355 05/25/2016 ([id number]) OFFICE/OUTPATIENT VISIT EST Diagnosis: Acute sinusitis, unspecified[ICD10: J01.90] María Elena APPIAH [employer] CPT-4: 65798 04/26/2016 ([id number]) OFFICE/OUTPATIENT VISIT EST Diagnosis: Flushing[ICD10: R23.2] Diagnosis: Primary insomnia[ICD10: F51.01] María Elena APPIAH [employer] CPT-4: 47977 03/02/2016 ([id number]) OFFICE/OUTPATIENT VISIT EST Diagnosis: Other seasonal allergic rhinitis[ICD10: J30.2] Loan ELLISLINE Fabiola APPIAH [employer] CPT-4: 74661 02/09/2016 ([id number]) OFFICE/OUTPATIENT VISIT EST Diagnosis: Primary insomnia[ICD10: F51.01] Diagnosis: Urinary tract infection, site not specified[ICD10: N39.0] María Elena APPIAH [facility] CPT-4: 44779 01/24/2016 ([id number]) OFFICE/OUTPATIENT VISIT EST Diagnosis: Other specified disorders of Eustachian tube, bilateral[ICD10: H69.83] Diagnosis: Allergic rhinitis, unspecified[ICD10: J30.9] Loan APPIAH DO [facility] CPT-4: 13894 12/23/2015 ([id number]) OFFICE/OUTPATIENT VISIT EST Diagnosis: Acute recurrent sinusitis, unspecified[ICD10: J01.91] Diagnosis: 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] Diagnosis: Allergic rhinitis, unspecified[ICD10: J30.9] María Elena APPIAH [facility] CPT-4: 24650 12/08/2015 ([id number]) OFFICE/OUTPATIENT VISIT EST Diagnosis: Allergic rhinitis, unspecified[ICD10: J30.9] Diagnosis: Pain in unspecified joint[ICD10: M25.50] María Elena APPIAH [facility] CPT-4: 79468 10/07/2015 ([id number]) OFFICE/OUTPATIENT VISIT EST Diagnosis: Essential (primary) hypertension[ICD10: I10] María Elena APPIAH [facility] CPT-4: 42838 10/06/2015 OFFICE/OUTPATIENT VISIT EST Diagnosis: Localized enlarged lymph nodes[ICD10: R59.0] Diagnosis: Local infection of the skin and subcutaneous tissue, unspecified[ICD10: L08.9] June Flores MARÍA ELENA APPIAH [facility] CPT- 4: 11335 09/14/2015 ([id number]) OFFICE/OUTPATIENT VISIT EST Diagnosis: Essential (primary) hypertension[ICD10: I10] Diagnosis: Actinic keratosis[ICD10: L57.0] María Elena APPIAH DO [facility] CPT-4: 46857 09/07/2015 ([id number]) OFFICE/OUTPATIENT VISIT EST Diagnosis: Essential (primary) hypertension[ICD10: I10] Diagnosis: Acute stress reaction[ICD10: F43.0] María Elena APPIAH DO [facility] CPT-4: 95349 08/18/2015 ([id number]) OFFICE/OUTPATIENT VISIT EST Diagnosis: Essential (primary) hypertension[ICD10: I10] María Elena APPIAH DO [facility] CPT-4: 71907 07/07/2015 ([id number]) OFFICE/OUTPATIENT VISIT EST Diagnosis: Essential (primary) hypertension[ICD10: I10] María Elena APPIAH DO [facility] CPT-4: 96501 06/24/2015 ([id number]) OFFICE/OUTPATIENT VISIT EST Diagnosis: Essential (primary) hypertension[ICD10: I10] María Elena APPIAH DO [facility] CPT-4: 99457 06/21/2015 ([id number]) OFFICE/OUTPATIENT VISIT EST Diagnosis: Essential (primary) hypertension[ICD10: I10] Diagnosis: Mixed hyperlipidemia[ICD10: E78.2] Diagnosis: Acute stress reaction[ICD10: F43.0] Diagnosis: Primary insomnia[ICD10: F51.01] María Elena APPIAH DO [facility] CPT-4: 59203 06/16/2015 ([id number]) OFFICE/OUTPATIENT VISIT EST Diagnosis: INSOMNIA NOS[ICD9: 780.52] Diagnosis: HYPERTENSION[ICD9: 401.9] Diagnosis: Stress reaction[ICD9: 308.9] María Elena APPIAH DO [facility] CPT-4: 36483 06/02/2015 ([id number]) OFFICE/OUTPATIENT VISIT EST Diagnosis: HYPERTENSION[ICD9: 401.9] Diagnosis: Stress reaction[ICD9: 308.9] María Elena APPIAH DO [facility] CPT-4: 39615 05/20/2015 ([id number]) OFFICE/OUTPATIENT VISIT EST Diagnosis: Skin lesion[ICD9: 709.9] 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] María Elena APPIAH DO [facility] CPT-4: 51738 05/10/2015 ([id number]) OFFICE/OUTPATIENT VISIT EST Diagnosis: SINUSITIS, ACUTE[ICD9: 461.9] Diagnosis: ALLERGIC RHINITIS[ICD9: 477.9] Diagnosis: DERMATITIS NOS[ICD9: 692.9] María Elena REHMAN [facility] CPT-4: 19307 03/16/2015 OFFICE/OUTPATIENT VISIT EST Diagnosis: Otitis media[ICD9: 382.9] Diagnosis: SINUSITIS, ACUTE[ICD9: 461.9] June APPIAH [facility] CPT-4: 67721 09/11/2014 ([id number]) OFFICE/OUTPATIENT VISIT EST Diagnosis: HYPERLIPIDEMIA NEC/NOS[ICD9: 272.4] María Elena APPIAH [facility] CPT-4: 78172 08/31/2014 ([id number]) OFFICE/OUTPATIENT VISIT EST Diagnosis: - I - HYPERTENSION[ICD9: 401.9] Diagnosis: HYPERLIPIDEMIA NEC/NOS[ICD9: 272.4] María Elena [facility] CPT-4: 25607 08/27/2014 ([id number]) OFFICE/OUTPATIENT VISIT EST Diagnosis: ABDOMINAL PAIN[ICD9: 789.00] Diagnosis: DYSPEPSIA[ICD9: 536.8] Diagnosis: Thoracic back pain[ICD9: 724.1] María Elena APPIAH [facility] CPT-4: 26317 07/21/2014 ([id number]) OFFICE/OUTPATIENT VISIT EST Diagnosis: ALLERGIC RHINITIS[ICD9: 477.9] María Elena APPIAH [facility] CPT-4: 25896 07/15/2014 ([id number]) OFFICE/OUTPATIENT VISIT EST Diagnosis: EDEMA[ICD9: 782.3] Diagnosis: Chronic insomnia[ICD9: 780.52] María Elena APPIAH [facility] CPT-4: 52746 05/18/2014 ([id number]) OFFICE/OUTPATIENT VISIT EST Diagnosis: Thyromegaly[ICD9: 240.9] Diagnosis: - I - HYPERTENSION[ICD9: 401.9] Diagnosis: ROUTINE MEDICAL EXAM[ICD9: V70.0] Diagnosis: EDEMA[ICD9: 782.3] María Elena APPIAH [facility] CPT-4: 08503 05/14/2014 OFFICE/OUTPATIENT VISIT EST Diagnosis: BRONCHITIS, ACUTE[ICD9: 466.0] Diagnosis: SINUSITIS, ACUTE[ICD9: 461.9] María Elena APPIAH [facility] CPT-4: 14569 04/21/2014 OFFICE/OUTPATIENT VISIT EST Diagnosis: SINUSITIS, ACUTE[ICD9: 461.9] Junesa Sandra APPIAH [facility] CPT-4: 63782 03/04/2014 ([id number]) OFFICE/OUTPATIENT VISIT EST Diagnosis: VACCINE FOR TDAP[ICD10: Z23] María Elena APPIAH [facility] CPT-4: 93041 02/27/2014 ([id number]) OFFICE/OUTPATIENT VISIT EST Diagnosis: Seborrheic keratoses, inflamed[ICD9: 702.11] Diagnosis: ACTINIC KERATOSIS[ICD9: 702.0] Diagnosis: INSOMNIA NOS[ICD9: 780.52] María Elena PANDYA [facility] CPT-4: 93624 01/13/2014 OFFICE/OUTPATIENT VISIT EST 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] Diagnosis: ALLERGIC RHINITIS[ICD9: 477.9] Diagnosis: Serous otitis media[ICD9: 381.4] María Elena APPIAH [facility] CPT-4: 47293 12/24/2013 ([id number]) OFFICE/OUTPATIENT VISIT EST Diagnosis: SINUSITIS, ACUTE[ICD9: 461.9] Diagnosis: ALLERGIC RHINITIS[ICD9: 477.9] 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] María Elena APPIAH [facility] CPT-4: 91937 11/12/2013 ([id number]) OFFICE/OUTPATIENT VISIT EST Diagnosis: ALLERGIC RHINITIS[ICD9: 477.9] Diagnosis: SINUSITIS, ACUTE[ICD9: 461.9] María Elena APPIAH [facility] CPT-4: 32865 10/21/2013 ([id number]) OFFICE/OUTPATIENT VISIT EST Diagnosis: ASYMPTOMATIC VARICOSE VEINS[ICD9: 454.9] Diagnosis: INSOMNIA NOS[ICD9: 780.52] María Elena PANDYA [facility] CPT-4: 67515 09/22/2013 OFFICE/OUTPATIENT VISIT EST Diagnosis: SINUSITIS, ACUTE[ICD9: 461.9] June APPIAH DO [facility] CPT-4: 01473 08/27/2013 ([id number]) OFFICE/OUTPATIENT VISIT EST Diagnosis: CEPHALGIA[ICD9: 784.0] Diagnosis: CEPHALGIA, TENSION[ICD9: 307.81] 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] María Elena APPIAH DO [facility] CPT-4: 86922 08/04/2013 ([id number]) OFFICE/OUTPATIENT VISIT EST Diagnosis: Cervicalgia[ICD9: 723.1] Diagnosis: SPASM OF MUSCLE[ICD9: 728.85] Diagnosis: CEPHALGIA, TENSION[ICD9: 307.81] María Elena APPIAH [facility] CPT-4: 63409 07/23/2013 ([id number]) OFFICE/OUTPATIENT VISIT EST 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] Diagnosis: ALLERGIC RHINITIS[ICD9: 477.9] María Elena APPIAH [facility] CPT-4: 83852 06/23/2013 ([id number]) OFFICE/OUTPATIENT VISIT EST Diagnosis: ALLERGIC RHINITIS[ICD9: 477.9] Diagnosis: ACUTE SEROUS OTITIS MEDIA[ICD9: 381.01] 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] María Elena APPIAH DO [facility] CPT-4: 43466 05/26/2013 ([id number]) OFFICE/OUTPATIENT VISIT EST Diagnosis: HYPERTENSION[ICD9: 401.9] Diagnosis: EDEMA[ICD9: 782.3] Diagnosis: Serous otitis media[ICD9: 381.4] María Elena APPIAH DO [facility] CPT-4: 56422 04/16/2013 ([id number]) OFFICE/OUTPATIENT VISIT EST Diagnosis: SINUSITIS, ACUTE[ICD9: 461.9] Diagnosis: ALLERGIC RHINITIS[ICD9: 477.9] Diagnosis: EDEMA[ICD9: 782.3] Diagnosis: Thyromegaly[ICD9: 240.9] Diagnosis: MALAISE AND FATIGUE[ICD9: 780.79] María Elena Lopez Fabiola APPIAH [employer] [facility] CPT-4: 76209 03/05/2013 ([id number]) OFFICE/OUTPATIENT VISIT EST Diagnosis: PAIN, LOWER BACK[ICD9: 724.2] Diagnosis: SPASM OF MUSCLE[ICD9: 728.85] María Elena JUARES LucioJj MARIVEL [employer] [facility] CPT-4: 72340 12/23/2012 OFFICE/OUTPATIENT VISIT EST Diagnosis: Low back pain[ICD9: 724.2] Lashawn JUARES LucioJj KRISTYN [facility] [employer] [facility] CPT-4: 39704 12/16/2012 ([id number]) OFFICE/OUTPATIENT VISIT EST Diagnosis: PAIN, LOWER BACK[ICD9: 724.2] Diagnosis: SCIATICA[ICD9: 724.3] Diagnosis: Lumbar herniated disc[ICD9: 722.10] María Elena COLON Fabiola WAYMyreks [employer] [facility] CPT-4: 95097 12/09/2012 ([id number]) OFFICE/OUTPATIENT VISIT EST Diagnosis: PAIN, LOWER BACK[ICD9: 724.2] Diagnosis: SCIATICA[ICD9: 724.3] Diagnosis: LUMBAR DISC DISPLACEMENT[ICD9: 722.10] María Elena MARIN Fabiola ORTA [employer] [facility] CPT-4: 46978 12/04/2012 OFFICE/OUTPATIENT VISIT EST Diagnosis: Pneumonia[ICD9: 486] Mary JUARES LucioJj MARIVEL [employer] [facility] CPT-4: 96118 11/22/2012 ([id number]) OFFICE/OUTPATIENT VISIT EST Diagnosis: PNEUMONIA, ORGANISM[ICD9: 486] Diagnosis: Exacerbation of RAD (reactive airway disease)[ICD9: 493.92] María Elena JUARES LucioJj MARIVEL [employer] [facility] CPT-4: 59191 11/21/2012 OFFICE/OUTPATIENT VISIT EST Diagnosis: HYPERTENSION[ICD9: 401.9] Diagnosis: Cephalgia[ICD9: 784.0] Lashawn Babar MONTEROQUELINE LucioJj TD [facility] CPT-4: 27971 10/29/2012 ([id number]) OFFICE/OUTPATIENT VISIT EST Diagnosis: MALAISE AND FATIGUE[ICD9: 780.79] Diagnosis: ARTHRALGIA-MULTIPLE SITES[ICD9: 719.49] María Elena Seamusdawn KYLAH BRAUNALCIDES LucioJj TD GAR[facility] CPT-4: 10625 10/14/2012 ([id number]) OFFICE/OUTPATIENT VISIT EST Diagnosis: URINARY FREQUENCY[ICD9: 788.41] María Elenamarcella Appiah MARÍA ELENA LucioJj TD G[facility] CPT-4: 59451 09/27/2012 ([id number]) OFFICE/OUTPATIENT VISIT EST Diagnosis: MALAISE AND FATIGUE[ICD9: 780.79] Diagnosis: ARTHRALGIA-MULTIPLE SITES[ICD9: 719.49] María Elenamarcella Appiah KYLAH BRAUNALCIDES LucioJj TD GAR[facility] CPT-4: 98664 09/25/2012 ([id number]) OFFICE/OUTPATIENT VISIT EST Diagnosis: SINUSITIS, ACUTE[ICD9: 461.9] 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] María Elena Seamusdawn MARÍA ELENA LucioJj TD GARIBAY [facility] CPT-4: 98182 08/29/2012 OFFICE/OUTPATIENT VISIT EST Diagnosis: ACTINIC KERATOSIS[ICD9: 702.0] Diagnosis: Inflamed seborrheic keratosis[ICD9: 702.11] Diagnosis: Skin cancer of face[ICD9: 173.31] Diagnosis: HYPERTENSION[ICD9: 401.9] María Elena Hicks SEAMUS NDERose Mary [facility] CPT-4: 81543 08/12/2012 ([id number]) OFFICE/OUTPATIENT VISIT EST Diagnosis: ARTHRALGIA-MULTIPLE SITES[ICD9: 719.49] Diagnosis: GOUT[ICD9: 274.9] Diagnosis: HYPERTENSION[ICD9: 401.9] Diagnosis: Tachycardia[ICD9: 785.0] María Elena BRADFORD [facility] CPT-4: 19176 05/06/2012 ([id number]) OFFICE/OUTPATIENT VISIT EST Diagnosis: INSOMNIA NOS[ICD9: 780.52] María Elena ValdesJj OR [facility] CPT-4: 32546 04/03/2012 ([id number]) OFFICE/OUTPATIENT VISIT EST Diagnosis: INSOMNIA NOS[ICD9: 780.52] Diagnosis: HYPERTENSION[ICD9: 401.9] Diagnosis: MIGRAINE NOS/NOT INTRCBL[ICD9: 346.90] María Elena Ortamaryjane MARLIN TANIA [facility] CPT-4: 23566 03/19/2012 ([id number]) OFFICE/OUTPATIENT VISIT EST Diagnosis: CELLULITIS[ICD9: 682.9] Diagnosis: Ankle pain[ICD9: 719.47] Diagnosis: HYPERTENSION[ICD9: 401.9] María Elena Seamusdawn MONTEROMARÍA ELENA LucioJj [facility] CPT-4: 40414 02/20/2012 ([id number]) OFFICE/OUTPATIENT VISIT EST Diagnosis: MIGRAINE NOS/NOT INTRCBL[ICD9: 346.90] Diagnosis: Vomiting[ICD9: 787.03] María Elena Seamusdawn J[facility]ARES [facility] CPT-[facility]: 03358 01/30/2012 ([id number]) OFFICE/OUTPATIENT VISIT EST Diagnosis: EDEMA[ICD9: 782.3] Diagnosis: HYPERTENSION[ICD9: 401.9] Diagnosis: ALLERGIC RHINITIS[ICD9: 477.9] Diagnosis: ARTHRALGIA-MULTIPLE SITES[ICD9: 719.49] María Elena Td KYLAH APARNAALCIDES LucioJj MARIVEL [employer] [facility] CPT-4: 82038 01/24/2012 ([id number]) OFFICE/OUTPATIENT VISIT EST Diagnosis: SPASM OF MUSCLE[ICD9: 728.85] Diagnosis: Thoracic back pain[ICD9: 724.1] Diagnosis: Cervical pain[ICD9: 723.1] María Elena Seamusdawn MONTEROMARÍA ELENA LucioJj [facility]RI[facility]YN [facility] CPT-4: 18222 01/10/2012 OFFICE/OUTPATIENT VISIT EST Diagnosis: PAIN, LOWER BACK[ICD9: 724.2] Diagnosis: LUMBAR DISC DISPLACEMENT[ICD9: 722.10] María Elena MARIN Fabiola ORTA [employer] [facility] CPT-4: 90802 12/11/2011 OFFICE/OUTPATIENT VISIT EST Diagnosis: MIGRAINE NOS/NOT INTRCBL[ICD9: 346.90] Diagnosis: SINUSITIS, ACUTE[ICD9: 461.9] María Elena Waymindimaryjane MARÍA ELENA LucioJj TD GARIBAY [facility] CPT-4: 02715 11/09/2011 OFFICE/OUTPATIENT VISIT EST Diagnosis: MIGRAINE NOS/NOT INTRCBL[ICD9: 346.90] Diagnosis: LYMPHADENOPATHY[ICD9: 785.6] María Elena Waydawn JUARES LucioJj SEAMUSDAWN [facility] CPT-4: 52187 09/13/2011 OFFICE/OUTPATIENT VISIT EST Diagnosis: MALAISE AND FATIGUE[ICD9: 780.79] Diagnosis: ARTHRALGIA-MULTIPLE SITES[ICD9: 719.49] María Elena Seamusdawn MONTERO APARNAALCIDES Hicks [facility] CPT-4: 73418 08/31/2011 OFFICE/OUTPATIENT VISIT EST Diagnosis: SINUSITIS, ACUTE[ICD9: 461.9] María Elena Seamusdawn Hicks SEAMUSDAWN [facility] CPT-4: 38251 07/20/2011 OFFICE/OUTPATIENT VISIT EST Diagnosis: HYPERTENSION[ICD9: 401.9] Diagnosis: PAIN, LOWER BACK[ICD9: 724.2] Diagnosis: SPASM OF MUSCLE[ICD9: 728.85] María Elena Waydawn Hicks SEAMUSDAWN [facility] CPT-4: 50677 07/06/2011 OFFICE/OUTPATIENT VISIT EST Diagnosis: MIGRAINE NOS/NOT INTRCBL[ICD9: 346.90] Diagnosis: HYPERTENSION[ICD9: 401.9] María Elena Seamusdawn Hicks SEAMUS DAWN [facility] CPT-4: 61651 05/22/2011 OFFICE/OUTPATIENT VISIT EST Diagnosis: SINUSITIS, ACUTE[ICD9: 461.9] Diagnosis: MIGRAINE NOS/NOT INTRCBL[ICD9: 346.90] Diagnosis: Dehydration[ICD9: 276.51] Diagnosis: Vomiting[ICD9: 787.03] María Elena Bazzi [facility] CPT-4: 34534 05/09/2011 ([id number]) OFFICE/OUTPATIENT VISIT EST María Elena APPIAH [employer] [facility] CPT-4: 29289 02/14/2011 ([id number]) OFFICE/OUTPATIENT VISIT EST María Elena [facility] CPT-4: 35626 02/03/2011 ([id number]) OFFICE/OUTPATIENT VISIT EST María Elena ISAAC [facility] CPT-4: 29737 01/31/2011 ([id number]) OFFICE/OUTPATIENT VISIT EST María Elena ISAAC [facility] CPT-4: 83152 01/25/2011 ([id number]) OFFICE/OUTPATIENT VISIT EST María Elena ISAAC [facility] CPT-4: 74203 01/18/2011 ([id number]) OFFICE/OUTPATIENT VISIT EST María Elena ISAAC [facility] CPT-4: 45128 11/29/2010 ([id number]) OFFICE/OUTPATIENT VISIT, EST María Elena BRAUNLINE [facility] CPT-4: 66723 10/10/2010 ([id number]) OFFICE/OUTPATIENT VISIT, EST María Elena MONTERO QU[facility]INE [facility] CPT-4: 69469 06/07/2010 ([id number]) OFFICE/OUTPATIENT VISIT, EST María Elena MONTERO [facility] CPT-4: 54892 04/27/2010 ([id number]) OFFICE/OUTPATIENT VISIT, EST María Elena MONTERO [facility] CPT-4: 30781 04/05/2010 ([id number]) OFFICE/OUTPATIENT VISIT, EST María Elena MONTERO [facility]INE [facility] CPT-4: 91830 03/09/2010 ([id number]) OFFICE/OUTPATIENT VISIT, EST María Elena BRAUNLINE [facility] CPT-4: 11244 03/03/2010 ([id number]) OFFICE/OUTPATIENT VISIT, EST María Elena BRAUNLINE [facility] CPT-4: 86167 01/17/2010 ([id number]) PREV VISIT, EST, AGE 40-64 María Elena COLEMAN [facility] CPT-4: 01834 12/27/2009 Plan of Care Planned Activity Notes Codes Status Date Visit Diagnosis Plan: Ingrowing nail Discussion: discu [...] : E11.65 10/07/2019 Appointment: Kathleen Zuniga [address] [place], [place] [id number] OFFICE SURGERY 10/07/2019 Visit Diagnosis Plan: [...] : E11.65 09/30/2019 Appointment: María Elena Appiahtel: [address] [place], [place] [phone] [place] CHECK UP 09/30/2019 Patient Education: Premarin- [employer] Coupon [id number] https://www.[facility]/sampleFND/resources/getResource/61/70526i31-u025-6xny-z3 Completed 09/30/2019 Appointment: María Elena Appiah WPtel: [address] [place], [place] [phone] [place] LAB 09/29/2019 Appointment: María Elena Appiah WPtel: [address] [place] [address] [place] Won't have the new insurance till [...] W06.XXXS 05/28/2019 Appointment: María Elena Appiah WPtel: [address] [place], [place] [phone] [place] FOLLOW UP 05/28/2019 Appointment: María Elena Appiah WPtel: [address] [place], [place] [phone] US BP CHECK 05/19/2019 Visit Diagnosis Plan: [...] Z79.890 01/22/2019 Appointment: María Elena Appiah WPtel: [address] [place] [address] [place] FOLLOW UP 01/22/2019 Patient Education: estradiol- [employer] Coupon [id number] https://www.[facility]/[employer]/resources/getResource/61/959z182p-5xr4-3l34-0i Completed 01/22/2019 Appointment: María Elena Appiah WPtel: [address] [place] [address] [place] CANCELED 01/20/2019 Appointment: María Elena Appiah WPtel: [address] [place] [address] [place] LM NO SHOW 01/06/2019 Appointment: María Elena Appiah WPtel: [address] [place] [address] [place] CANCELED 10/17/2018 Appointment: María Elena Appiah WPtel: [address] [place] [address] US BP CHECK 10/09/2018 Visit Diagnosis Plan: [...] I10 09/30/2018 Appointment: María Elena Appiah WPtel: [address] [place] [address] [place] FOLLOW UP 09/30/2018 Visit Diagnosis Plan: [...] F51.01 08/27/2018 Appointment: María Elena Appiah WPtel: [address] [place] [address] ACUTE ILLNESS 08/27/2018 Appointment: María Elena Appiah WPtel: [address] [place] [address] [place] Patient stated she went out to [...] 08/09/2018 Appointment: María Elena Appiah WPtel: [address] [place] [address] ACUTE ILLNESS 08/09/2018 Appointment: María Elena Appiah WPtel: [address] [place] [address] NO SHOW 08/08/2018 Visit Diagnosis Plan: Anxiety [...] 07/22/2018 Appointment: María Elena Appiah WPtel: [address] [place] [address] ACUTE ILLNESS 07/22/2018 Appointment: María Elena Appiah WPtel: [address] [place] [address] [place] INJECTION 06/19/2018 Patient Education: Patient Medication [...] ICD-10 : L03.031 06/17/2018 Appointment: Kathleen Zuniga [address] [place] [address] ACUTE ILLNESS 06/17/2018 Patient Education: Patient Medication [...] : B02.9 05/16/2018 Appointment: [facility] [place] I[facility] 05/16/2018 Patient Education: Patient Medication [...] : L03.115 03/20/2018 Appointment: Kathleen Zuniga [address] [facility] FOLLOW UP 03/20/2018 Patient Education: Patient [...] : L03.115 03/18/2018 Appointment: Kathleen Zuniga [address] [facility] FOLLOW UP 03/18/2018 Patient Education: Patient [...] : L03.115 03/15/2018 Appointment: Kathleen Zuniga [address] [facility] ACUTE ILLNESS 03/15/2018 Patient Education: Patient Medication [...] ICD-10 : J01.90 02/11/2018 Appointment: Kathleen Zuniga [address] [place], [place] [phone] ACUTE ILLNESS 02/11/2018 Patient Education: Patient Medication Summary Completed 02/11/2018 Appointment: María Elena Appiah WPtel: [phone] [facility] INJECTION 02/01/2018 Patient Education: Patient Medication [...] ICD-10 : M51.16 01/30/2018 Appointment: Kathleen Zuniga [address] [place], [place] [phone] ACUTE ILLNESS 01/30/2018 Patient Education: Patient [...] E11.65 12/18/2017 Appointment: María Elena Appiah WPtel: [address] [place] [address] Annual Well Visit 12/18/2017 Patient Education: Patient Medication Summary Completed 12/18/2017 Care Plan: Referral Order SNOMED-CT : [id number] Pending 12/18/2017 Appointment: María Elena Appiah WPtel: [address] [place] [address] [place] INJECTION 12/10/2017 Patient Education: Patient Medication [...] ICD-10 : L03.031 12/07/2017 Appointment: Kathleen Zuniga [address] [place] [address] ACUTE ILLNESS 12/07/2017 Patient Education: Patient Medication [...] : J01.00 10/08/2017 Appointment: [facility] AC[facility] 10/08/2017 Patient Education: Patient Medication Summary Completed 10/08/2017 Appointment: María Elena [facility] [phone] [facility] [facility] 09/21/2017 Patient Education: Patient Medication Summary [...] : R06.83 09/20/2017 Appointment: Kathleen [facility]iga [facility] AC[place] I[facility] 09/20/2017 Patient Education: [...] : L60.0 08/29/2017 Appointment: [facility]iga [facility] OFF[facility] SURGERY 08/29/2017 Patient Education: Patient Medication Summary Completed 08/29/2017 Visit Diagnosis Plan: Actinic keratosis Discussion: Cr yotherapy as above ICD-9 : 702.0 ICD-10 : L57.0 08/01/2017 Appointment: María Elena Appiah WPtel: [facility] OFFICE SURGERY 08/01/2017 Patient Education: Patient Medication Summary Completed 08/01/2017 Appointment: María Elena Appiah WPtel: [phone] [facility] US PATIENT THOUGHT APPOINTMENT WAS TOMORROW 07/26/17 CALLED 15 MINUTES BEFORE APPT TO SAY SHE DIDN'T HAVE ANYONE TO COVER HER BUSINESS AND WOULD NOT MAKE IT NO SHOW 07/25/2017 Visit Diagnosis Plan: Cellulitis of left toe Discussio n: Clindamycin and notify if worsening or persistis ICD-9 : 681.10 ICD-10 : L03.032 07/19/2017 Appointment: María Elena Appiah WPtel: [address] [place], [place] [id number] [place] MEDICATION REVIEW 07/19/2017 Patient Education: Patient Medication Summary Completed 07/19/2017 Appointment: María Elena Appiah WPtel: [address] [place], [place] [phone] [place] CANCELED 07/04/2017 Visit Diagnosis Plan: Generalized hyperhidrosis Discus ian: CBC, CMP, TSH, free T4 ordered to assess. will review labs. ICD-9 : 780.8 ICD-10 : R61 06/27/2017 Visit Diagnosis Plan: Chronic sinusitis, unspecified D iscussion: Referral sent to dr. albarado in [place] per patient request. patient has been treated multiple times for sinus infections with no recovery. patient was seen by dr sanchez in the past with no interventions. patient has deviated septum which may be affecting her sinuses. 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, including hip Discussion: Shave removal of above lesio n--sent to pathology ICD-9 : 216.7 ICD-10 : D23.72 01/24/2017 Appointment: María Elena Appiah WPtel: [address] [place], [place] [phone] 01/23 confirmed ~sl OFFICE SURGERY 01/24/2017 Patient Education: Patient Medication Summary Completed 01/24/2017 Appointment: Loan Sánchez [address] [place], [place] [phone] 01/09 rescheduled~sl RESCHEDULED 01/15/2017 Visit Diagnosis Plan: Localized edema Discussion: Reich fernando metolazone to lasix with potassium prn ICD-9 : 782.3 ICD-10 : R60.0 12/13/2016 Visit Diagnosis Plan: Primary insomnia Discussion: Dis cussed [place] but at this time patient wants to hold on trying any new meds and would like to try to decrease meds ICD-9 : 780.52 ICD-10 : F51.01 12/13/2016 Visit Diagnosis Plan: Other melanin hyperpigmentation Discussion: Monitor/Observe Sunscreen ICD-9 : 709.09 ICD-10 : L81.4 12/13/2016 Appointment: María Elena Appiah WPtel: [address] [place], [place] [id number] 12/12 confirmed ~sl MEDICATION REVIEW 12/13/2016 Patient Education: Patient Medication Summary Completed 12/13/2016 Appointment: María Elena Appiah WPtel: [address] [place], [place] [id number] [place] rescheduled for 12/13/16 at 11am RESCHEDULED 0 12/06/2016 Appointment: María Elena Appiah WPtel: [address] [place], [place] [id number] [place] CANCELED 11/23/2016 Patient Education: Patient Medication [...] 11/01/2016 App[facility]ment: [facility] [address] [facility] [facility] 10/31 lm `sl 11/01 lm`sl MEDICATION REVIEW 017 Patient Education: Patient Medication Summary Completed 11/01/2016 Referral: Canelo Overton WPtel: [phone] [id number] [place] Referral Initiated 10/30/2016 Visit Diagnosis Plan: [...] 10/17/2016 Appointment: María Elena App[facility]el[facility] [address] [facility] [facility] 10/16 confirmed ~sl PAP 10/17/2016 Patient Education: Patient Medication Summary Completed 10/17/2016 Care Plan: MAMMOGRAM SCREENING LOINC : 2 6347-5 Pending 10/17/2016 Visit Diagnosis Plan: Other seasonal allergic rhinitis Discussion: Decadron/Garamycin Nasal [place] Mix Too soon for steroid Retry zyrtec 10mg daily ICD-9 : 477.9 ICD-10 : J30.2 10/10/2016 Appointment: María Elena Appiah WPtel: [address] [place], [place] [id number] [place] FOLLOW UP 10/10/2016 Patient Education: Patient Medication Summary Completed 10/10/2016 Appointment: María Elena Appiah WPtel: [facility] 10/02 reschedule `sl RESCHEDULED 10/02/2016 Visit Plan: See surgery for removal of n ew left arm lesion and right foot lesion Lyrica to use next month for left arm paresthesias Continue current meds Discussed sunscreen/sunblock combo 09/19/2016 Appointment: María Elena Appiah WPtel: [address] [place], [place] [phone] 09/18 confirmed ~ FOLLOW UP 09/19/2016 Patient Education: Patient Medication Summary Completed 09/19/2016 Patient Education: Patient Medication Summary Completed 09/18/2016 Care Plan: MAMMOGRAM BOTH BREASTS LOINC : 94942-8 Pending 09/18/2016 Visit Plan: Discussed that needs [...] sinuses 08/24/2016 Appointment: María Elena Appiah WPtel: [address] [place], [place] [phone] ACUTE ILLNESS 08/24/2016 Patient Education: Patient Medication Summary Completed 08/24/2016 Patient Education: Patient Medication Summary Completed 08/23/2016 Care Plan: MAMMOGRAM SCREENING LOINC : 2 6347-5 Pending 08/23/2016 Visit Plan: Finish doxycycline Add Breo 100/25 1 p BID for 2 weeks If not improving within next 2 days will get CXR 08/16/2016 Appointment: María Elena Appiah WPtel: [address] [place], [place] [phone] ACUTE ILLNESS 08/16/2016 Patient Education: Patient Medication Summary Completed 08/16/2016 Visit Plan: Supportive care. Rest, Fluid s, Tylenol/Motrin prn fever or bodyaches. Notify if worsening symptoms. Doxycyline and Prednisone 08/10/2016 Appointment: María Elena Appiah WPtel: [address] [place] [address] 08/09 lm`sl....confirmed-sp FOLLOW UP 09/2015 Patient Education: Patient Medication Summary Completed 08/10/2016 Visit Plan: Saline nasal flushes prn. Ty lenol/Motrin prn headache. Notify if persists/symptoms worsening. Dexamethasone 8mg IM today May use coricedan and mucinex 08/02/2016 Appointment: María Elena Appiah WPtel: [address] [place] [address] ACUTE ILLNESS 08/02/2016 Patient Education: Patient Medication Summary Completed 08/02/2016 Visit Plan: Cryotherapy as above and lef t forearm lesion removal as above with 5-0 punch biopsy and sent to path Return in 10 days for suture removal 08/01/2016 Appointment: María Elena Appiah WPtel: [address] [place] [address] 07/31 confirmed`~sl OFFICE SURGERY 08/01/2016 Patient Education: Patient Medication Summary Completed 08/01/2016 Visit Plan: Stop clindamycin Check CBC, CMP, ESR now/STAT 07/27/2016 Appointment: María Elena Appiah WPtel: [address] [place] [address] ACUTE ILLNESS 07/27/2016 Patient Education: Patient Medication Summary Completed 07/27/2016 Visit Plan: Update lab and check ABIs to start with Will likely need cardiology evaluation to rule out PVD Clindamycin for 10 days Daily yogurt or probiotic Will return for removal of left arm lesions 07/20/2016 Appointment: María Elena Appiah WPtel: [address] [place] [address] ACUTE ILLNESS 07/20/2016 Patient Education: Patient Medication Summary Completed 07/20/2016 Patient Education: Patient Medication Summary Completed 07/20/2016 Care Plan: MAMMOGRAM BOTH BREASTS LOINC : 04817-8 Pending 07/20/2016 Care Plan: US EXAM CHEST LOINC : 16527-9 Pending 07/20/2016 Visit Plan: Wound culture collected from left great toe Appearance is somewhat staph like Rx as above Wound cleanser and skin care reviewed May need to add oral antibiotic if sores do not heal or continue to reoccur 07/06/2016 Appointment: Loan Sánchez [address] [place] [address] ACUTE ILLNESS 07/06/2016 Patient Education: Patient Medication Summary Completed 07/06/2016 Appointment: María Elena Appiah WPtel: [address] [place] [address] [place] INJECTION 05/25/2016 Patient Education: Patient Medication Summary Completed 05/25/2016 Visit Plan: Saline nasal flushes prn. Ty lenol/Motrin prn headache. Notify if persists/symptoms worsening. Dexamethasone and Rocephin given 04/26/2016 Appointment: María lEena Appiah WPtel: [address] [place] [address] ACUTE ILLNESS 04/26/2016 Patient Education: Patient Medication Summary Completed 04/26/2016 Visit Plan: Check CBC, CMP, TSH, FreeT4, HbA1C, estradiol, lipids in AM 03/02/2016 Appointment: María Elena Appiah WPtel: [address] [place] [address] 03/01 lm~sl ACUTE ILLNESS 03/02/2016 Patient Education: Patient Medication Summary Completed 03/02/2016 Visit Plan: Exam is nearly normal Needs to be taking daily antihistamine Would prefer to use oral steroids instead of shot but patient insist that oral steroids cause horrible headaches for her Will given kenalog IM instead 02/09/2016 Appointment: Loan Sánchez [address] [place] [address] ACUTE ILLNESS 02/09/2016 Patient Education: Patient Medication Summary Completed 02/09/2016 Visit Plan: Culture urine Macrobid DC xa nax Trial of Ativan 1mg q HS 01/24/2016 Appointment: María Elena Appiah WPtel: [address] [place] [address] ACUTE ILLNESS 01/24/2016 Patient Education: Patient Medication Summary Completed 01/24/2016 Visit Plan: No steroid or rocephin injec tion warranted Can have oral prednisone Continue current home regimen Needs to follow up with Dr Sanchez if problems persist 12/23/2015 Appointment: Loan Sánchez [address] [place] [address] ACUTE ILLNESS 12/23/2015 Patient Education: Patient Medication Summary Completed 12/23/2015 Visit Plan: Saline nasal flushes prn. Ty lenol/Motrin prn headache. Notify if persists/symptoms worsening. Kenalog 40mg IM today 12/08/2015 Appointment: María Elena Appiah WPtel: [address] [place] [address] 12/06 confirmed~ ACUTE ILLNESS 12/08/2015 Patient Education: Patient Medication Summary Completed 12/08/2015 Appointment: María Elena Appiah WPtel: [address] [place] [address] ACUTE ILLNESS 11/18/2015 Patient Education: Patient Medication Summary Completed 10/11/2015 Appointment: María Elena Appiah WPtel: [address] [place] [address] [place] INJECTION 10/07/2015 Patient Education: Patient Medication Summary Completed 10/07/2015 Visit Plan: Check renal arterial doppler s and ECHO Change amlodopine to lotrel 5/20mg q HS Will need stress test as well Check CMP, uric acid, ESR 10/06/2015 Appointment: María Elena Appiah WPtel: [address] [place] [address] ACUTE ILLNESS 10/06/2015 Patient Education: Patient Medication Summary Completed 10/06/2015 Patient Education: [facility] - [employer] - Amlodipine Besylate - 18-64 - Dynamic Portal ID Completed 10/06/2015 Appointment: María Elena Appiah WPtel: [address] [place], [place] [id number] [place] FOLLOW UP 09/22/2015 Visit Plan: Cephalexin 500 mg PO bid Mery ly topical Mupirocin to lesions on left lateral neck and face Follow-up in one week. Sooner if symptoms worsen 09/14/2015 Appointment: June Flores WPtel: [address] [place], [place] [phone] ACUTE ILLNESS 09/14/2015 Patient Education: Patient Medication Summary Completed 09/14/2015 Visit Plan: Change bystolic to bedtime d osing and amlodopine to morning dosing Cryotherapy as above to AKs 09/07/2015 Appointment: María Elena Appiah WPtel: [address] [place], [place] [phone] 09/06 appointment made and confirmed ~ FOLLOW UP 09/07/2015 Patient Education: Patient Medication Summary Completed 09/07/2015 Visit Plan: Increase bystolic back to 20 mg daily but will split and take 10mg in AM and 10mg in PM Stress Reducers 08/18/2015 Appointment: María Elena Appiah WPtel: [address] [place], [place] [phone] 08/17/15 appt confirmed cn ACUTE ILLNESS 08/18 Patient Education: Patient Medication Summary Completed 08/18/2015 Appointment: María Elena Appiah WPtel: [address] [place], [place] [phone] BP CHECK 07/07/2015 Patient Education: Patient Medication Summary Completed 07/07/2015 Appointment: María Elena Appiah WPtel: [address] [place], [place] [phone] BP CHECK 06/24/2015 Patient Education: Patient Medication Summary Completed 06/24/2015 Appointment: María Elena Appiah WPtel: [address] [place], [place] [phone] BP CHECK 06/21/2015 Patient Education: Patient Medication Summary Completed 06/21/2015 Visit Plan: Lab discussed Continue curre nt meds and lifestyle modification Recheck lab in 6mos 06/16/2015 Appointment: María Elena Appiah WPtel: [address] [place] [address] 06/15 confirmed FOLLOW UP 06/16/2015 Patient Education: Patient Medication Summary Completed 06/16/2015 Patient Education: Patient Medication Summary Completed 06/15/2015 Visit Plan: Increase cymbalta to 60mg q HS Keep clonidine at current dose Recheck 2weeks Change xanax to klonopin 06/02/2015 Appointment: María Elena Appiah WPtel: [address] [place] [address] 06/02 lm FOLLOW UP 06/02/2015 Patient Education: Patient Medication Summary Completed 06/02/2015 Appointment: María Elena Appiah WPtel: [address] [place] [address] ACUTE ILLNESS 05/24/2015 Visit Plan: Increase clonidine to 0.2mg q HS Add cymbalta 30mg q HS Recheck 2weeks Stress Reducers Check fasting lab Discussed sleep study 05/20/2015 Appointment: María Elena Appiah WPtel: [address] [place] [address] ACUTE ILLNESS 05/20/2015 Patient Education: Patient Medication Summary Completed 05/20/2015 Patient Education: [facility] - [employer] - Cymbalta - 18-64 - Dynamic Portal ID Completed 05/20/2015 Appointment: María Elena Appiah WPtel: [address] [place] [address] BP CHECK 05/19/2015 Patient Education: Patient Medication Summary Completed 05/19/2015 Visit Plan: Topical Bactroban alternatin g with topical betamethasone Recheck 2weeks 05/10/2015 Appointment: María Elena Appiah WPtel: [address] [place] [address] 05/07 vm cn...05/07 appt confirmed OFFICE SURGER Y 05/10/2015 Patient Education: Patient Medication Summary Completed 05/10/2015 Referral: Patrick Chandler WPtel: [address] Referral Initiated 05/04/2015 Visit Plan: Saline nasal flushes prn. Ty lenol/Motrin prn headache. Notify if persists/symptoms worsening. Depomedrol 40mg IM today 03/16/2015 Appointment: María Elena Appiah WPtel: [address] [place] [address] ACUTE ILLNESS 03/16/2015 Patient Education: Patient Medication Summary Completed 03/16/2015 Appointment: María Elena Appiah WPtel: [address] [place] [address] ER Follow UP 03/09/2015 Visit Plan: Cryotherapy to lesions as ab ove 10/27/2014 Appointment: María Elena Appiah WPtel: [address] [place] [address] OFFICE SURGERY 10/27/2014 Patient Education: Patient Medication Summary Completed 10/27/2014 Appointment: June Flores WPtel: [address] [place] [address] ACUTE ILLNESS 09/11/2014 Patient Education: Patient Medication Summary Completed 09/11/2014 Visit Plan: Lab discussed Lipitor 10mg d aily Coenzyme Q-10 400mg daily Vitamin D3 5000u daily Recheck lipids with LFTs in 3mos then fwup 08/31/2014 Appointment: María Elena Appiah WPtel: [address] [place] [address] 08/28 voicemail FOLLOW UP 08/31/2014 Patient Education: Patient Medication Summary Completed 08/31/2014 Appointment: María Elena Appiah WPtel: [address] [place] [address] [place] LAB 08/27/2014 Appointment: María Elena Appiah WPtel: [address] [place], [place] [phone] [place] LAB 08/27/2014 Patient Education: Patient Medication Summary Completed 08/27/2014 Appointment: María Elena Appiahtel: [address] [place] [address] ACUTE ILLNESS 07/23/2014 Appointment: María Elena Appiah WPtel: [address] [place] [address] ACUTE ILLNESS 07/21/2014 Patient Education: Patient Medication Summary Completed 07/21/2014 Visit Plan: Kenalog 40mg IM today Contin ue narendra and singulair Add Flonase 07/15/2014 Appointment: María Elena Appiah WPtel: [address] [place] [address] ACUTE ILLNESS 07/15/2014 Appointment: María Elena Appiah WPtel: [address] [place] [address] ACUTE ILLNESS 07/15/2014 Patient Education: Patient Medication Summary Completed 07/15/2014 Visit Plan: Will do metolazone 2.5mg prn with 6 potassium and see if causes as severe cramping Trial of of seroquel XR 50mg q PM with evening meal and let us know how works 05/18/2014 Appointment: María Elena Appiah WPtel: [address] [place] [address] 05/15 left message FOLLOW UP 05/18/2014 Patient Education: Patient Medication Summary Completed 05/18/2014 Appointment: María Elena Appiah WPtel: [address] [place], [place] [phone] 05/14/2014 Patient Education: Patient Medication Summary Completed 05/14/2014 Appointment: María Elena Appiah WPtel: [address] [place], [place] [phone] [place] INJECTION 04/22/2014 Visit Plan: Rocephin and Kenalog today a nd finish abx given from urgent care 04/21/2014 Appointment: María Elena Appiah WPtel: [address] [place] [address] [place] INJECTION 04/21/2014 Patient Education: Patient Medication Summary Completed 04/21/2014 Appointment: June Flores WPtel: [address] [place] [address] ACUTE ILLNESS 03/04/2014 Patient Education: Patient Medication Summary Completed 03/04/2014 Appointment: María Elena Appiah WPtel: [address] [place], [place] [phone] [place] INJECTION 02/27/2014 Patient Education: Patient Medication Summary Completed 02/27/2014 Visit Plan: Cryotherapy as above to all lesions Patient wants to try no meds for insomnia for a while and see how goes 01/13/2014 Appointment: María Elena Appiah WPtel: [address] [place] [address] OFFICE SURGERY 01/13/2014 Patient Education: Patient Medication Summary Completed 01/13/2014 Visit Plan: Stop Melatonin Stop Soma Tri al of trazadone 75mg q HS See ENT for possible tubes as has had chronic ETD and serous otitis media with numerous steroids 12/24/2013 Appointment: María Elena Appiah WPtel: [address] [place] [address] ACUTE ILLNESS 12/24/2013 Patient Education: Patient Medication Summary Completed 12/24/2013 Visit Plan: Saline nasal flushes prn. Ty lenol/Motrin prn headache. Notify if persists/symptoms worsening. 11/12/2013 Appointment: María Elena Appiah WPtel: [address] [place] [address] ACUTE ILLNESS 11/12/2013 Patient Education: Patient Medication Summary Completed 11/12/2013 Appointment: María Elena Appiah WPtel: [address] [place] [address] ACUTE ILLNESS 10/21/2013 Patient Education: Patient Medication Summary Completed 10/21/2013 Visit Plan: Sleep hygiene and sleep rout ine Melatonin 10mg q HS Support stockings and observe 09/22/2013 Appointment: María Elena Appiah WPtel: [address] [place] [address] ACUTE ILLNESS 09/22/2013 Patient Education: Patient Medication Summary Completed 09/22/2013 Appointment: June Flores WPtel: [address] [place] [address] ACUTE ILLNESS 08/27/2013 Patient Education: Patient Medication Summary Completed 08/27/2013 Visit Plan: Proceed with CT scan of head /neck Proceed with occipital nerve injections Butrans 20mcg patch weekly until can get into see Dr. Mcdonough for injections 08/04/2013 Appointment: María Elena Appiah WPtel: [address] [place] [address] FOLLOW UP 08/04/2013 Patient Education: Patient Medication Summary Completed 08/04/2013 Visit Plan: OMT done Daily neck stretche s, moist heat Increase Celebrex to 200mg BID Add flexeril 07/23/2013 Appointment: María Elena Appiah WPtel: [address] [place] [address] 07/22 voicemail FOLLOW UP 07/23/2013 Patient Education: Patient Medication Summary Completed 07/23/2013 Appointment: María Elena Appiah WPtel: [address] [place] [address] ACUTE ILLNESS 06/23/2013 Patient Education: Patient Medication Summary Completed 06/23/2013 Appointment: María Elena Appiah WPtel: [address] [place] [address] ACUTE ILLNESS 05/26/2013 Patient Education: Patient Medication Summary Completed 05/26/2013 Visit Plan: Decrease clonidine to 0.1mg TID If BP remains stable consider decreasing amlodopine Prednisone for 5 days BP check in 1mo 04/16/2013 Appointment: María Elena Appiah WPtel: [address] [place] [address] 04/14 pt called and confirmed appt FOLLOW UP 04/16/2013 Patient Education: Patient Medication Summary Completed 04/16/2013 Appointment: María Elena Appiah WPtel: [address] [place] [address] ACUTE ILLNESS 03/05/2013 Patient Education: Patient Medication Summary Completed 03/05/2013 Visit Plan: Pt has MARIA ELENA on with Dr. Mcdonough Continue Butrans patch Refill Hydrocodone early tomorrow 12/23/2012 Appointment: María Elena Appiah WPtel: [address] [place] [address] FOLLOW UP 12/23/2012 Patient Education: Patient Medication Summary Completed 12/23/2012 Appointment: Lashawn Eckert WPtel: [address] [place] [address] ACUTE ILLNESS 12/16/2012 Patient Education: Patient Medication Summary Completed 12/16/2012 Visit Plan: Proceed with updated MRI of LS spine Continue gabapentin and add soma and diclofenac Will likely need to go for another epidural 12/09/2012 Appointment: María Elena Appiah WPtel: [address] [place] [address] ACUTE ILLNESS 12/09/2012 Patient Education: Patient Medication Summary Completed 12/09/2012 Visit Plan: Injection as above Finish me drol dose pack Chiropracter this afternoon 12/04/2012 Appointment: María Elena Appiah WPtel: [address] [place] [address] ACUTE ILLNESS 12/04/2012 Patient Education: Patient Medication Summary Completed 12/04/2012 Appointment: Mary Tillman WPtel: [address] [place] [address] FOLLOW UP 11/22/2012 Patient Education: Patient Medication Summary Completed 11/22/2012 Appointment: María Elena Appiah WPtel: [address] [place] [address] ACUTE ILLNESS 11/21/2012 Patient Education: Patient Medication Summary Completed 11/21/2012 Appointment: María Elena Appiah WPtel: [address] [place] [address] [place] BP CHECK 11/07/2012 Patient Education: Patient [...] BP re-check. 10/29/2012 Appointment: Lashawn Eckert WPtel: [address] [place] [address] ACUTE ILLNESS 10/29/2012 Patient Education: Patient Medication Summary Completed 10/29/2012 Appointment: María Elena Appiah WPtel: [address] [place] [address] ACUTE ILLNESS 10/14/2012 Patient Education: Patient Medication Summary Completed 10/14/2012 Appointment: María Elena Appiah WPtel: [address] [place] [address] UA 09/27/2012 Patient Education: Patient Medication Summary Completed 09/27/2012 Appointment: María Elena Appiah WPtel: [address] [place] [address] ACUTE ILLNESS 09/25/2012 Patient Education: Patient Medication Summary Completed 09/25/2012 Appointment: María Elena Appiah WPtel: [address] [place] [address] [place] BP CHECK 09/24/2012 Appointment: María Elena Appiah WPtel: [address] [place] [address] ACUTE ILLNESS 08/29/2012 Patient Education: Patient Medication Summary Completed 08/29/2012 Visit Plan: Cryotherapy as above See Karlos m for right ear lesion--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 ACUTE ILLNESS 05/06/2012 Patient Education: Patient Medication Summary Completed 05/06/2012 Visit Plan: Pt wants to hold on any furt her sleep medications 04/03/2012 Appointment: María Elena Appiah WPtel: [address] [place] [address] FOLLOW UP 04/03/2012 Patient Education: Patient Medication Summary Completed 04/03/2012 Appointment: María Elena Appiahtel: [address] [place] [address] FOLLOW UP 03/19/2012 Patient Education: Patient Medication Summary Completed 03/19/2012 Appointment: María Elena Appiah WPtel: [address] [place] [address] BP CHECK 02/22/2012 Patient Education: Patient Medication Summary Completed 02/22/2012 Appointment: María Elena Appiah WPtel: [address] [place] [address] BP CHECK 02/21/2012 Patient Education: Patient Medication Summary Completed 02/21/2012 Visit Plan: Doxycycline and bactroban fo r foot Supportive care on ankles and knees Add norvasc for BP 02/20/2012 Appointment: María Elena Appiah WPtel: [address] [place] [address] ER Follow UP 02/20/2012 Patient Education: Patient Medication Summary Completed 02/20/2012 Appointment: María Elena Appiahtel: [address] [place] [address] ACUTE ILLNESS 01/30/2012 Patient Education: Patient Medication Summary Completed 01/30/2012 Appointment: María Elena Appiahtel: [address] [place] [address] ACUTE ILLNESS 01/24/2012 Patient Education: Patient Medication Summary Completed 01/24/2012 Visit Plan: Daily back stretches, moist heat, Biofreeze prn OMT done 01/10/2012 Appointment: María Elena Appiahtel: [address] [place] [address] ACUTE ILLNESS 01/10/2012 Patient Education: Patient Medication Summary Completed 01/10/2012 Appointment: María Elena Appiahtel: [address] [place] [address] FOLLOW UP 12/11/2011 Patient Education: Patient Medication Summary Completed 12/11/2011 Appointment: María Elean Appiahtel: [address] [place] [address] ACUTE ILLNESS 11/09/2011 Patient Education: Patient Medication Summary Completed 11/09/2011 Appointment: María Elena Appiahtel: [address] [place] [address] ACUTE ILLNESS 09/13/2011 Patient Education: Patient Medication Summary Completed 09/13/2011 Visit Plan: Check CBC, TSH, Free T4, CMP , ESR, Vit D, B12 now Start Prednisone today 08/31/2011 Appointment: María Elena Appiahtel: [address] [place] [address] ACUTE ILLNESS 08/31/2011 Patient Education: Patient Medication Summary Completed 08/31/2011 Appointment: María Elena Appiahtel: [address] [place], [place] [phone] [place] INJECTION 07/20/2011 Patient Education: Patient Medication Summary Completed 07/20/2011 Visit Plan: Continue current meds Monite r BP Cont stretches from PT 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 07/06/2011 Appointment: María Elena Appiah WPtel: [address] Pugh [address] [place], [place] [address] [place] FOLLOW UP 07/06/2011 Patient Education: Patient Medication Summary Completed 07/06/2011 Appointment: María Elena Appiah WPtel: [address] [place] [address] BP CHECK 06/06/2011 Patient Education: Patient Medication Summary Completed 06/06/2011 Visit Plan: Add Bystolic at 2.5mg QAM Ad d Robaxin 750mg 2 po q HS BP check in 2wks 05/22/2011 Appointment: María Elena Appiahtel: [address] [place], [place] [id number] FOLLOW UP 05/22/2011 Patient Education: Patient Medication Summary Completed 05/22/2011 Appointment: María Elena Appiahtel: [address] [place] [address] ER Follow UP 05/09/2011 Patient Education: Patient Medication Summary Completed 05/09/2011 Appointment: María Elena Appiahtel: [address] [place], [place] [phone] [place] FOLLOW UP 02/22/2011 Visit Plan: Rx written for Hydrocodone 1 0/325mg #240 See Ortho 02/14/2011 Appointment: María Elena Appiahtel: [address] [place], [place] [id number] OMT 02/14/2011 Patient Education: Patient Medication Summary [...] lab work. 02/03/2011 Appointment: Lashawn Eckert WPtel: [address] [place] [address] ACUTE ILLNESS 02/03/2011 Patient Education: Patient Medication Summary Completed 02/03/2011 Visit Plan: OMT done Cont daily stretche s 01/31/2011 Appointment: María Elena Appiah WPtel: [address] [place] [address] ACUTE ILLNESS 01/31/2011 Patient Education: Patient Medication Summary Completed 01/31/2011 Visit Plan: Continue pain meds OMT done Proceed with PT No work this summer01/25/2011 Appointment: María Elena Appiah WPtel: [address] [place] [address] ACUTE ILLNESS 01/25/2011 Patient Education: Patient Medication Summary Completed 01/25/2011 Visit Plan: Start PT Long discussion abo ut getting pain meds from only us and can only have max of 4grams of tylenol per day Change to Hydrocodone 10/325mg 1- 2 po TID prn pain--#180 called to Radha 01/18/2011 Appointment: María Elena Appiah WPtel: [address] [place] [address] FOLLOW UP 01/18/2011 Patient Education: Patient Medication Summary Completed 01/18/2011 Visit Plan: Daily back stretches, moist heat, Biofreeze prn 11/29/2010 Appointment: María Elena Appiah WPtel: [address] [place] [address] [place] ER Follow UP 11/29/2010 Patient Education: Patient Medication Summary Completed 11/29/2010 Visit Plan: Saline nasal flushes prn. Ty lenol/Motrin prn headache. Notify if persists/symptoms worsening. Finish augmentin Add Medrol Dose Pack 10/10/2010 Appointment: Maraí Elena Appiah WPtel: [address] [place] [address] ACUTE ILLNESS 10/10/2010 Patient Education: Patient Medication Summary Completed 10/10/2010 Visit Plan: Cryotherapy x3 to multiple l esions on both forearms 07/19/2010 Appointment: María Elena Appiah WPtel: [address] [place] [address] OFFICE SURGERY 07/19/2010 Patient Education: Patient Medication Summary Completed 07/19/2010 Appointment: María Elena Appiah WPtel: [address] [place] [address] BP CHECK 07/06/2010 Patient Education: Patient Medication Summary Completed 07/06/2010 Appointment: María Elena Appiah WPtel: [address] [place] [address] BP CHECK 06/30/2010 Patient Education: Patient Medication Summary Completed 06/30/2010 Appointment: María Elena Appiah WPtel: [address] [place] [address] BP CHECK 06/20/2010 Patient Education: Patient Medication Summary Completed 06/20/2010 Visit Plan: Change Diovan to Exforge 160 /5mg QD OMT done to thoracics BP check in 2wks 06/07/2010 Appointment: María Elena Appiah WPtel: [address] [place] [address] [place] FOLLOW UP 06/07/2010 Patient Education: Patient Medication Summary Completed 06/07/2010 Appointment: María Elena Appiah WPtel: [address] [place] [address] [place] BP CHECK 06/03/2010 Patient Education: Patient Medication Summary Completed 06/03/2010 Appointment: María Elena Appiah WPtel: [address] [place] [address] BP CHECK 06/01/2010 Patient Education: Patient Medication Summary Completed 06/01/2010 Visit Plan: Irritated skin tags to left neck x2 excised at base with scissors and base cauterized 05/30/2010 Appointment: María Elena Appiah WPtel: [address] [place] [address] OFFICE SURGERY 05/30/2010 Patient Education: Patient Medication Summary Completed 05/30/2010 Visit Plan: Saline nasal flushes prn. Ty lenol/Motrin prn headache. Notify if persists/symptoms worsening. Restart Nasonex Has allergy testing set for May 25 04/27/2010 Appointment: María Elena Appiah WPtel: [address] [place] [address] ACUTE ILLNESS 04/27/2010 Patient Education: Patient Medication Summary Completed 04/27/2010 Visit Plan: Saline nasal flushes prn. Ty lenol/Motrin prn headache. Notify if persists/symptoms worsening. Omnaris BID plus injections 04/05/2010 Appointment: María Elena Appiah WPtel: [address] [place] [address] ACUTE ILLNESS 04/05/2010 Patient Education: Patient Medication Summary Completed 04/05/2010 Visit Plan: Saline nasal flushes prn. Ty lenol/Motrin prn headache. Notify if persists/symptoms worsening. 03/09/2010 Appointment: María Elena Appiah WPtel: [address] [place] [address] ACUTE ILLNESS 03/09/2010 Patient Education: Patient Medication Summary Completed 03/09/2010 Visit Plan: Cont Clonidine as is Cont Pr emarin Fwup with surgery as scheduled 03/03/2010 Appointment: María Elena Appiah WPtel: [address] [place], [place] [phone] FOLLOW UP 03/03/2010 Patient Education: Patient Medication Summary Completed 03/03/2010 Visit Plan: Check Pelvic US now Dukee tacho Sal C vs Hysterectomy 01/17/2010 Appointment: María Elena Appiah WPtel: [address] [place], [place] [phone] ACUTE ILLNESS 01/17/2010 Patient Education: Patient Medication Summary Completed 01/17/2010 Visit Plan: Check fasting lab and schedu le Mammogram 2gm Na Diet Trial of Ambien 10mg qhs Fwup pending lab results 12/27/2009 Appointment: María Elena Appiah WPtel: [address] [place], [place] [phone] ESTABLISHED PATIENT 12/27/2009 Patient Education: Patient Medication Summary Completed 12/27/2009 Referral: Canelo Overton WPtel: [address] [id number] [place] Referral Initiated Referral: Philipp Flores WPtel: [address] [id number] [place] Referral Appointment Requested Instructions Comment . [...]
--- OUTSIDE RECORDS SUMMARY | 2020-03-13 05:35 | XMS REPORT | CCD ---
Author Author Gale Appiah D.O. Organization [facility] Address [address] [place] [phone] Phone Care Team Providers Care Distributed Generation Project Manager Name Role Phone María Elena Appiah D.O., PP Unavailable CCM Unavailable Summary Purpose Interface Exchange Insurance Providers Payer name Policy type / Coverage type Covered republican ID Effective Begin Date Effective End Date [facility] Commercial Insurance [id number] Unknown Family History Family History data not found Social History Social History Element Codes Description Effective Dates Tobacco history SNOMED CT: [id number] Never smoker 05/22/2011 Allergies, Adverse Reactions, Alerts [...] Start Date Stop Date Status Fill Instructions doxepin 25 mg capsule RxNorm: 3456936 TAKE ONE CAPSULE B Y MOUTH EVERY NIGHT AT BEDTIME NEEDED FOR SLEEP 11/16/2019 No Stop Date Active Klor-Con 8 mEq tablet,extended release RxNorm: 835246 T FARRUKH ONE TABLET BY MOUTH TWICE A DAY 11/16/2019 No Stop Date Active hydrocodone 10 mg-acetaminophen 325 mg tablet RxNorm: 912372 1-2 Tablet(s) Oral three times a day as needed for pain 11/10/2019 No Stop Date Active cyclobenzaprine 10 mg tablet RxNorm: 106214 TAKE ONE TA BLET BY MOUTH THREE TIMES A DAY NEEDED FOR MUSCLE SPASMS 10/23/2019 No Stop Date Active duloxetine 60 mg capsule,delayed release RxNorm: 596403 1 Capsu le(s) Oral QD 10/17/2019 04/13/2020 Active celecoxib 200 mg capsule RxNorm: 586564 1 Capsule(s) Or al two times a day as needed for pain 10/17/2019 01/14/2020 Active lisinopril 20 mg tablet RxNorm: 391896 1 Tablet(s) Oral QD 10/17/19 20 04/13/2020 Active gabapentin 300 mg capsule RxNorm: 934902 1 Capsule(s) O ral every night at bedtime 10/17/2019 01/15/2020 Active Singulair 10 mg tablet RxNorm: 050200 1 Tablet(s) Oral QD 10/17/2019 04/14/2020 Active metoprolol tartrate 100 mg tablet RxNorm: 432199 1 Tabl et(s) Oral two times a day 10/17/2019 04/13/2020 Active clonidine HCl 0.1 mg tablet RxNorm: 740929 1 Tablet(s) Oral fou r times a day 10/17/2019 04/13/2020 Active Januvia 100 mg tablet RxNorm: 885906 1 Tablet(s) Oral QD 10/17/2019 No Stop Date Active Lipitor 10 mg tablet RxNorm: 135023 1 Tablet(s) Oral QD 10/17/2019 Active Steglatro 15 mg tablet RxNorm: 8436558 1 Tablet(s) Oral QD 10/17/19 No Stop Date Active Klor-Con 8 mEq tablet,extended release RxNorm: 549074 1 Tablet(s) Oral two times a day 10/17/2019 11/15/2019 Inactive Glyxambi 25 mg-5 mg tablet RxNorm: 1485524 1 Tablet(s) Oral QD 01/202010/16/2019 Inactive Patient will bring in copay discount card as well Glyxambi 25 mg-5 mg tablet RxNorm: 2921560 1 Tablet(s) Oral QD 01/202010/14/2019 Inactive Patient will bring in copay discount card as well Keflex 500 mg capsule RxNorm: 631956 1 Capsule(s) Oral two time s a day 10/07/2019 10/14/2019 Inactive Premarin 1.25 mg tablet RxNorm: 141951 1 Tablet(s) Oral QD 09/30/1906/25/2020 Active hydrocodone 10 mg-acetaminophen 325 mg tablet RxNorm: 009182 1-2 Tablet(s) Oral three times a day as needed for pain 09/30/2019 09/30/2019 Inactive baclofen 10 mg tablet RxNorm: 081183 TAKE ONE TABLET BY MOUTH THREE TIMES A DAY NEEDED 09/19/2019 No Stop Date Active gabapentin 300 mg capsule RxNorm: 134783 TAKE ONE CAPSU LE BY MOUTH EVERY NIGHT AT BEDTIME 09/19/2019 10/16/2019 Inactive Klor-Con 8 mEq tablet,extended release RxNorm: 364603 T FARRUKH ONE TABLET BY MOUTH TWICE A DAY 1 Tablet(s) Oral two times a day 09/19/2019 10/16/2019 Renu ctive hydrocodone 10 mg-acetaminophen 325 mg tablet RxNorm: 347140 1-2 Tablet(s) Oral three times a day as needed for pain 09/19/2019 09/29/2019 Inactive triamterene 75 mg-hydrochlorothiazide 50 mg tablet RxNorm: 3 08921 TAKE ONE TABLET BY MOUTH DAILY 09/11/2019 No Stop Date Active allopurinol 300 mg tablet RxNorm: 817972 TAKE ONE TABLET BY LOPEZ TH DAILY 09/11/2019 No Stop Date Active duloxetine 60 mg capsule,delayed release RxNorm: 528646 TAKE ONE CAPSULE BY MOUTH DAILY 09/11/2019 10/16/2019 Inactive Lipitor 10 mg tablet RxNorm: 163313 TAKE ONE TABLET BY MOUTH AT BEDTIME 09/11/2019 10/16/2019 Inactive lisinopril 20 mg tablet RxNorm: 389602 TAKE ONE TABLET BY MOUTH DAILY .... THIS REPLACE 10MG TABLETS 09/11/2019 10/16/2019 Inactive celecoxib 200 mg capsule RxNorm: 558349 TAKE ONE CAPSUL E BY MOUTH TWICE A DAY NEEDED FOR PAIN 09/11/2019 10/16/2019 Inactive clonidine HCl 0.1 mg tablet RxNorm: 856851 TAKE ONE TAB LET BY MOUTH FOUR TIMES A DAY 09/11/2019 10/16/2019 Inactive doxepin 25 mg capsule RxNorm: 9100734 1 Capsule(s) Oral every night at bedtime as needed for sleep 08/21/2019 11/15/2019 Inactive hydrocodone 10 mg-acetaminophen 325 mg tablet RxNorm: 218296 1-2 Tablet(s) PO TID 08/12/2019 09/29/2019 Inactive as needed for pa in - Previous quantity #240, will start dosing for #180 in April 2011 per Doctor Td. Medrol (Dustin) 4 mg tablets in a dose pack RxNorm: 818453 Tablet(s) Oral As Directed 07/21/2019 09/29/2019 Inactive Premarin 1.25 mg tablet RxNorm: 949026 1 Tablet(s) Oral QD 07/02/2009/29/2019 Inactive hydrocodone 10 mg-acetaminophen 325 mg tablet RxNorm: 000842 1-2 Tablet(s) PO TID 07/01/2019 08/11/2019 Inactive as needed for pa in - Previous quantity #240, will start dosing for #180 in April 2011 per Doctor Td. gabapentin 300 mg capsule RxNorm: 897283 1 Capsule(s) PO QHS 201809/18/2019 Inactive celecoxib 200 mg capsule RxNorm: 419532 1 Capsule(s) Or al two times a day as needed for pain 06/27/2019 06/27/2019 Inactive furosemide 40 mg tablet RxNorm: 427500 TAKE ONE TABLET BY MOUTH EVERY MORNING NEEDED FOR EDEMA . TAKE WITH POTASSIUM 06/24/2019 No Stop Date Active doxepin 25 mg capsule RxNorm: 5425457 TAKE ONE CAPSULE B Y MOUTH EVERY NIGHT AT BEDTIME NEEDED FOR SLEEP 06/24/2019 08/20/2019 Inactive Singulair 10 mg tablet RxNorm: 680538 TAKE ONE TABLET BY MOUTH JOSÉ Y 06/24/2019 10/16/2019 Inactive lisinopril 20 mg tablet RxNorm: 156175 TAKE ONE TABLET BY MOUTH DAILY .... THIS REPLACE 10MG TABLETS 06/24/2019 09/10/2019 Inactive nystatin-triamcinolone 100,000 unit/g-0.1 % topical cream Rx Norm: 6215291 1 Application Topical two times a day 06/12/2019 06/19/2019 Inactive apply BID for 1 week nystatin-triamcinolone 100,000 unit/g-0.1 % topical cream Rx Norm: 4854583 1 Application Topical two times a day 06/12/2019 06/11/2019 Inactive apply BID for 1 week hydrocodone 10 mg-acetaminophen 325 mg tablet RxNorm: 890930 1-2 Tablet(s) PO QID as needed for pain MUST LAST 30 DAYS 05/28/2019 06/26/2019 Inactiv e (Response to an electronic controlled substance refill request - RxReferenceNumber: [id number]) baclofen 20 mg tablet RxNorm: 161585 1 Tablet(s) PO TID as needed for muscle spasm 05/19/2019 05/27/2019 Inactive gabapentin 300 mg capsule RxNorm: 429076 1 Capsule(s) PO QHS 201805/27/2019 Inactive lisinopril 20 mg tablet RxNorm: 927680 1 Tablet(s) PO Q D TAKE ONE TABLET BY MOUTH DAILY, REPLACES 10 MG DOSE 05/19/2019 06/23/2019 Inactive doxepin 25 mg capsule RxNorm: 7985038 TAKE ONE CAPSULE B Y MOUTH EVERY NIGHT AT BEDTIME NEEDED FOR SLEEP 05/16/2019 06/14/2019 Inactive lisinopril 20 mg tablet RxNorm: 538426 TAKE ONE TABLET BY MOUTH DAILY, REPLACES 10 MG DOSE 05/16/2019 05/18/2019 Inactive Singulair 10 mg tablet RxNorm: 224326 TAKE ONE TABLET BY MOUTH JOSÉ Y 05/16/2019 06/14/2019 Inactive gabapentin 300 mg capsule RxNorm: 633935 1 Capsule(s) PO QHS 201805/04/2019 Inactive estropipate 1.5 mg tablet RxNorm: 721716 1 Tablet(s) PO QD 05/05/2005/27/2019 Inactive estropipate 1.5 mg tablet RxNorm: 216622 1 Tablet(s) PO QD 05/05/2005/04/2019 Inactive gabapentin 300 mg capsule RxNorm: 835709 1 Capsule(s) PO QHS 201805/18/2019 Inactive hydrocodone 10 mg-acetaminophen 325 mg tablet RxNorm: 306608 1-2 Tablet(s) PO QID as needed for pain MUST LAST 30 DAYS 04/25/2019 05/24/2019 Inactiv e (Response to an electronic controlled substance refill request - RxReferenceNumber: [id number]) cyclobenzaprine 10 mg tablet RxNorm: 315223 TAKE ONE TA BLET BY MOUTH THREE TIMES A DAY NEEDED FOR MUSCLE SPASMS 04/24/2019 05/18/2019 Inactive metoprolol tartrate 100 mg tablet RxNorm: 966251 TAKE O NE TABLET BY MOUTH TWICE A DAY 04/24/2019 10/16/2019 Inactive Lyrica 75 mg capsule RxNorm: 901697 1 Capsule(s) PO QHS 03/25/2019 Inactive duloxetine 60 mg capsule,delayed release RxNorm: 346850 TAKE ONE CAPSULE BY MOUTH DAILY 03/21/2019 05/19/2019 Inactive triamterene 75 mg-hydrochlorothiazide 50 mg tablet RxNorm: 3 32250 TAKE ONE TABLET BY MOUTH DAILY 03/21/2019 05/19/2019 Inactive Klor-Con 8 mEq tablet,extended release RxNorm: 481175 T FARRUKH ONE TABLET BY MOUTH TWICE A DAY 03/21/2019 09/18/2019 Inactive Lipitor 10 mg tablet RxNorm: 029394 TAKE ONE TABLET BY MOUTH AT BEDTIME 03/21/2019 09/10/2019 Inactive clonidine HCl 0.1 mg tablet RxNorm: 081209 TAKE ONE TAB LET BY MOUTH FOUR TIMES A DAY 03/21/2019 05/19/2019 Inactive allopurinol 300 mg tablet RxNorm: 846476 TAKE ONE TABLET BY LOPEZ TH DAILY 03/21/2019 05/19/2019 Inactive hydrocodone 10 mg-acetaminophen 325 mg tablet RxNorm: 424665 1-2 Tablet(s) PO QID as needed for pain MUST LAST 30 DAYS 02/28/2019 03/29/2019 Inactiv e (Response to an electronic controlled substance refill request - RxReferenceNumber: [id number]) furosemide 40 mg tablet RxNorm: 181088 TAKE ONE TABLET BY MOUTH EVERY MORNING NEEDED FOR EDEMA . TAKE WITH POTASSIUM 02/21/2019 03/22/2019 Inactive cyclobenzaprine 10 mg tablet RxNorm: 307333 TAKE ONE TA BLET BY MOUTH THREE TIMES A DAY NEEDED FOR MUSCLE SPASMS 02/21/2019 04/21/2019 Inactive lisinopril 20 mg tablet RxNorm: 041145 TAKE ONE TABLET BY MOUTH DAILY, REPLACES 10 MG DOSE 02/21/2019 05/15/2019 Inactive doxepin 25 mg capsule RxNorm: 5123945 TAKE ONE CAPSULE B Y MOUTH EVERY NIGHT AT BEDTIME NEEDED FOR SLEEP 02/21/2019 05/15/2019 Inactive nystatin 100,000 unit/gram topical cream RxNorm: 821649 APPLY TO AFFECTED AREA(S) TWO TIMES A DAY 02/21/2019 03/22/2019 Inactive estradiol 1 mg tablet RxNorm: 279117 2 Tablet(s) PO QD replaces premarin 01/22/2019 05/04/2019 Inactive lisinopril 20 mg tablet RxNorm: 699859 TAKE ONE TABLET BY MOUTH DAILY, REPLACES 10 MG DOSE 01/20/2019 02/18/2019 Inactive cyclobenzaprine 10 mg tablet RxNorm: 898035 TAKE ONE TA BLET BY MOUTH THREE TIMES A DAY NEEDED FOR MUSCLE SPASMS 01/20/2019 02/18/2019 Inactive metoprolol tartrate 100 mg tablet RxNorm: 875482 TAKE O NE TABLET BY MOUTH TWICE A DAY 01/20/2019 02/18/2019 Inactive cyclobenzaprine 10 mg tablet RxNorm: 280333 TAKE ONE TA BLET BY MOUTH THREE TIMES A DAY NEEDED FOR MUSCLE SPASMS 12/19/2018 01/17/2019 Inactive lisinopril 20 mg tablet RxNorm: 620741 TAKE ONE TABLET BY MOUTH DAILY, REPLACES 10 MG DOSE 12/19/2018 01/17/2019 Inactive duloxetine 60 mg capsule,delayed release RxNorm: 251070 TAKE ONE CAPSULE BY MOUTH DAILY 12/19/2018 01/17/2019 Inactive Lipitor 10 mg tablet RxNorm: 307628 TAKE ONE TABLET BY MOUTH AT BEDTIME 12/19/2018 01/17/2019 Inactive cyclobenzaprine 10 mg tablet RxNorm: 193655 1 Tablet(s) PO TID as needed for muscle spasm 11/19/2018 12/18/2018 Inactive Singulair 10 mg tablet RxNorm: 276884 1 Tablet(s) PO QD 11/19/2018 Inactive lisinopril 20 mg tablet RxNorm: 255798 TAKE ONE TABLET BY MOUTH DAILY, REPLACES 10 MG DOSE 11/15/2018 12/18/2018 Inactive hydrocodone 10 mg-acetaminophen 325 mg tablet RxNorm: 166380 1-2 Tablet(s) PO QID as needed for pain MUST LAST 30 DAYS 11/13/2018 12/12/2018 Inactiv e (Response to an electronic controlled substance refill request - RxReferenceNumber: [id number]) nystatin 100,000 unit/gram topical cream RxNorm: 441268 APPLY TO AFFECTED AREA(S) TWO TIMES A DAY 10/23/2018 11/06/2018 Inactive lisinopril 20 mg tablet RxNorm: 840890 1 Tablet(s) PO QD replac es 10mg dose 10/18/2018 11/14/2018 Inactive hydrocodone 10 mg-acetaminophen 325 mg tablet RxNorm: 183070 1-2 Tablet(s) QID as needed for pain MUST LAST 30 DAYS 10/08/2018 11/06/2018 Inactive (Response to an electronic controlled substance refill request - RxReferenceNumber: [id number]) lisinopril 10 mg tablet RxNorm: 172018 1 Tablet(s) PO QD 10/03/2018 0 01/21/2019 Inactive Celebrex 200 mg capsule RxNorm: 413414 TAKE ONE CAPSULE BY MOUT H TWICE A DAY 09/30/2018 05/04/2019 Inactive cyclobenzaprine 10 mg tablet RxNorm: 420977 TAKE ONE TA BLET BY MOUTH THREE TIMES A DAY NEEDED FOR MUSCLE SPASMS 09/30/2018 11/18/2018 Inactive doxepin 25 mg capsule RxNorm: 9157830 TAKE ONE CAPSULE B Y MOUTH EVERY NIGHT AT BEDTIME NEEDED 09/05/2018 10/16/2018 Inactive omeprazole 40 mg capsule,delayed release RxNorm: 090939 TAKE ONE CAPSULE BY MOUTH DAILY 09/05/2018 01/21/2019 Inactive furosemide 40 mg tablet RxNorm: 511558 TAKE ONE TABLET BY MOUTH EVERY MORNING NEEDED FOR EDEMA . TAKE WITH POTASSIUM 09/05/2018 11/03/2018 Inactive phentermine 37.5 mg tablet RxNorm: 002436 1 Tablet(s) PO QAM 201701/21/2019 Inactive doxepin 25 mg capsule RxNorm: 4077305 1 Capsule(s) PO QH S as needed for sleep TAKE ONE CAPSULE BY MOUTH EVERY NIGHT AT BEDTIME NEEDED 08/27/2018 09/04/2018 Inactive Keflex 500 mg capsule RxNorm: 871447 1 Capsule(s) PO TID 08/09/2018 1 10/19/2017 Inactive Diflucan 100 mg tablet RxNorm: 932957 1 Tablet(s) PO QD 08/09/2018 Inactive Premarin 1.25 mg tablet RxNorm: 836098 2 Tablet(s) PO QD 08/09/2018 0 05/04/2019 Inactive Zofran ODT 4 mg disintegrating tablet RxNorm: 506559 1 Tablet(s) PO Q4H as needed for nausea 08/09/2018 01/21/2019 Inactive metoprolol tartrate 100 mg tablet RxNorm: 082024 TAKE O NE TABLET BY MOUTH TWICE A DAY 2018 10/04/2018 Inactive doxepin 25 mg capsule RxNorm: 0671558 TAKE ONE CAPSULE B Y MOUTH EVERY NIGHT AT BEDTIME NEEDED 2018 08/26/2018 Inactive cyclobenzaprine 10 mg tablet RxNorm: 868646 TAKE ONE TA BLET BY MOUTH THREE TIMES A DAY NEEDED FOR MUSCLE SPASMS 2018 09/29/2018 Inactive hydrocodone 10 mg-acetaminophen 325 mg tablet RxNorm: 572880 1-2 Tablet(s) QID as needed for pain MUST LAST 30 DAYS 07/29/2018 08/27/2018 Inactive (Response to an electronic controlled substance refill request - RxReferenceNumber: [id number]) nystatin 100,000 unit/gram topical powder RxNorm: 240821 Applic ation TOP BID 07/22/2018 08/04/2018 Inactive doxepin 25 mg capsule RxNorm: 1996622 1 Capsule(s) PO QHS as needed 07/22/2018 08/05/2018 Inactive triamterene 75 mg-hydrochlorothiazide 50 mg tablet RxNorm: 3 12480 TAKE ONE TABLET BY MOUTH DAILY 07/05/2018 10/02/2018 Inactive duloxetine 60 mg capsule,delayed release RxNorm: 026686 TAKE ONE CAPSULE BY MOUTH DAILY 07/05/2018 09/02/2018 Inactive Klor-Con 8 mEq tablet,extended release RxNorm: 949308 T FARRUKH ONE TABLET BY MOUTH TWICE A DAY 07/05/2018 10/02/2018 Inactive Lipitor 10 mg tablet RxNorm: 078751 TAKE ONE TABLET BY MOUTH AT BEDTIME 07/05/2018 09/02/2018 Inactive allopurinol 300 mg tablet RxNorm: 557532 TAKE ONE TABLET BY LOPEZ TH DAILY 07/05/2018 10/02/2018 Inactive clonidine HCl 0.1 mg tablet RxNorm: 165178 TAKE ONE TAB LET BY MOUTH FOUR TIMES A DAY 07/05/2018 10/02/2018 Inactive hydrocodone 10 mg-acetaminophen 325 mg tablet RxNorm: 272572 1-2 Tablet(s) QID as needed for pain MUST LAST 30 DAYS 06/28/2018 07/27/2018 Inactive (Response to an electronic controlled substance refill request - RxReferenceNumber: [id number]) MediHoney (calcium alginate-honey) 4" X 5" bandage RxNorm: 1 Application TOP QD 06/17/2018 06/26/2018 Inactive honey-hydrocolloid dressing 4" X 5" RxNorm: 1 Application TOP QD 06/17/2018 07/16/2018 Inactive furosemide 40 mg tablet RxNorm: 828160 TAKE ONE TABLET BY MOUTH EVERY MORNING NEEDED FOR EDEMA . TAKE WITH POTASSIUM 06/10/2018 07/09/2018 Inactive This is a refill request. hydrocodone 10 mg-acetaminophen 325 mg tablet RxNorm: 019296 1-2 Tablet(s) QID as needed for pain MUST LAST 30 DAYS 05/30/2018 06/27/2018 Inactive (Response to an electronic controlled substance refill request - RxReferenceNumber: [id number]) acyclovir 800 mg tablet RxNorm: 987178 1 Tablet(s) PO 5x day 201705/22/2018 Inactive Premarin 1.25 mg tablet RxNorm: 512474 1-2 Tablet(s) PO QD 05/15/20 18 07/13/2018 Inactive cyclobenzaprine 10 mg tablet RxNorm: 706305 1 Tablet(s) PO TID as needed for muscle spasm 05/09/2018 05/08/2018 Inactive Medrol (Dustin) 4 mg tablets in a dose pack RxNorm: 812466 Tablet(s) PO As Directed 05/02/2018 06/16/2018 Inactive hydrocodone 10 mg-acetaminophen 325 mg tablet RxNorm: 591468 1-2 Tablet(s) QID as needed for pain MUST LAST 30 DAYS 04/30/2018 05/29/2018 Inactive (Response to an electronic controlled substance refill request - RxReferenceNumber: [id number]) duloxetine 60 mg capsule,delayed release RxNorm: 771591 TAKE ONE CAPSULE BY MOUTH DAILY 04/16/2018 05/15/2018 Inactive Celebrex 200 mg capsule RxNorm: 842043 TAKE ONE CAPSULE BY MOUT H TWICE A DAY 04/16/2018 06/14/2018 Inactive Singulair 10 mg tablet RxNorm: 714819 TAKE ONE TABLET BY MOUTH JOSÉ Y 04/16/2018 11/19/2018 Inactive Lipitor 10 mg tablet RxNorm: 831321 TAKE ONE TABLET BY MOUTH AT BEDTIME 04/16/2018 05/15/2018 Inactive hydrocodone 10 mg-acetaminophen 325 mg tablet RxNorm: 422619 1-2 Tablet(s) QID as needed for pain MUST LAST 30 DAYS 03/29/2018 04/27/2018 Inactive (Response to an electronic controlled substance refill request - RxReferenceNumber: [id number]) cyclobenzaprine 10 mg tablet RxNorm: 164228 1 Tablet(s) PO TID as needed for muscle spasm 03/18/2018 05/09/2018 Inactive omeprazole 40 mg capsule,delayed release RxNorm: 941009 1 Capsu le(s) PO QD 02/26/2018 08/24/2018 Inactive hydrocodone 10 mg-acetaminophen 325 mg tablet RxNorm: 885596 1-2 Tablet(s) QID as needed for pain MUST LAST 30 DAYS 02/26/2018 03/27/2018 Inactive (Response to an electronic controlled substance refill request - RxReferenceNumber: [id number]) metoprolol tartrate 100 mg tablet RxNorm: 322179 1 Tablet(s) PO BID 02/18/2018 08/05/2018 Inactive Lyrica 75 mg capsule RxNorm: 212859 1 Capsule(s) PO QHS 01/30/2018 Inactive phentermine 37.5 mg tablet RxNorm: 190072 1 Tablet(s) PO QAM 201706/16/2018 Inactive hydrocodone 10 mg-acetaminophen 325 mg tablet RxNorm: 780452 1-2 Tablet(s) QID as needed for pain MUST LAST 30 DAYS 01/29/2018 02/25/2018 Inactive (Response to an electronic controlled substance refill request - RxReferenceNumber: [id number]) Klor-Con 8 mEq tablet,extended release RxNorm: 224747 1 Tablet( s) PO BID 01/14/2018 07/04/2018 Inactive allopurinol 300 mg tablet RxNorm: 397710 1 Tablet(s) PO QD 01/15/2007/04/2018 Inactive Lipitor 10 mg tablet RxNorm: 017794 1 Tablet(s) PO QHS 01/14/201812/2017 Inactive triamterene 75 mg-hydrochlorothiazide 50 mg tablet RxNorm: 3 52936 1 Tablet(s) PO QD 01/14/2018 07/04/2018 Inactive hydrocodone 10 mg-acetaminophen 325 mg tablet RxNorm: 530354 1-2 Tablet(s) QID as needed for pain MUST LAST 30 DAYS 12/27/2017 01/25/2018 Inactive (Response to an electronic controlled substance refill request - RxReferenceNumber: [id number]) Onglyza 5 mg tablet RxNorm: 822812 1 Tablet(s) PO QD 12/18/201701/29 Inactive metformin 500 mg tablet RxNorm: 293366 1 Tablet(s) PO BID 12/11/2017 12/10/2017 Inactive metformin 500 mg tablet RxNorm: 906797 1 Tablet(s) PO BID 12/11/2017 12/17/2017 Inactive furosemide 40 mg tablet RxNorm: 847738 1 Tablet(s) PO Q AM prn edema--take with potassium 12/11/2017 06/08/2018 Inactive cyclobenzaprine 10 mg tablet RxNorm: 902216 1 Tablet(s) PO TID as needed for muscle spasm 12/11/2017 03/18/2018 Inactive hydrocodone 10 mg-acetaminophen 325 mg tablet RxNorm: 945089 1-2 Tablet(s) QID as needed for pain MUST LAST 30 DAYS 10/23/2017 11/21/2017 Inactive (Response to an electronic controlled substance refill request - RxReferenceNumber: [id number]) Lipitor 10 mg tablet RxNorm: 417505 1 Tablet(s) PO QHS 10/16/201703/2018 Inactive cyclobenzaprine 10 mg tablet RxNorm: 801149 1 Tablet(s) PO TID as needed for muscle spasm 10/09/2017 12/10/2017 Inactive hydroxyzine HCl 25 mg tablet RxNorm: 382151 1 Tablet(s) PO BID as needed for anxiety 09/20/2017 01/29/2018 Inactive Effexor XR 75 mg capsule,extended release RxNorm: 280391 1 Caps ule(s) PO QD 09/20/2017 01/29/2018 Inactive metoprolol tartrate 100 mg tablet RxNorm: 766129 1 Tablet(s) PO BID 08/20/2017 02/18/2018 Inactive baclofen 20 mg tablet RxNorm: 027593 1 Tablet(s) PO TID as needed for muscle spasm 08/20/2017 01/21/2019 Inactive clonidine HCl 0.1 mg tablet RxNorm: 920181 1 Tablet(s) PO QID 08/2005/16/2018 Inactive Seroquel 25 mg tablet RxNorm: 646177 1 Tablet(s) PO QHS 08/17/2017 Inactive Seroquel 25 mg tablet RxNorm: 277137 1 Tablet(s) PO QHS 08/17/2017 Inactive Diflucan 100 mg tablet RxNorm: 416320 TAKE ONE TABLET BY MOUTH JOSÉ Y 07/25/2017 08/07/2017 Inactive hydrocodone 10 mg-acetaminophen 325 mg tablet RxNorm: 285008 1-2 Tablet(s) QID as needed for pain MUST LAST 30 DAYS 07/19/2017 08/17/2017 Inactive (Response to an electronic controlled substance refill request - RxReferenceNumber: [id number]) clindamycin 300 mg capsule RxNorm: 701673 1 Capsule(s) PO TID 07/1907/28/2017 Inactive clotrimazole-betamethasone 1 %-0.05 % topical cream RxNorm: 404197 Application TOP BID to elbow rash 07/19/2017 06/16/2018 Inactive Singulair 10 mg tablet RxNorm: 201437 Tablet(s) TAKE ONE TABLET BY MOUTH DAILY 07/18/2017 04/13/2018 Inactive triamterene 75 mg-hydrochlorothiazide 50 mg tablet RxNorm: 3 00809 1 Tablet(s) PO QD 07/18/2017 01/14/2018 Inactive Celebrex 200 mg capsule RxNorm: 024442 Capsule(s) TAKE ONE CAPSULE BY MOUTH TWICE A DAY 07/18/2017 10/15/2017 Inactive hydrocodone 10 mg-acetaminophen 325 mg tablet RxNorm: 822628 1-2 Tablet(s) QID as needed for pain MUST LAST 30 DAYS 06/19/2017 07/18/2017 Inactive (Response to an electronic controlled substance refill request - RxReferenceNumber: [id number]) hydrocodone 10 mg-acetaminophen 325 mg tablet RxNorm: 262734 1-2 Tablet(s) QID as needed for pain MUST LAST 30 DAYS 06/19/2017 06/18/2017 Inactive (Response to an electronic controlled substance refill request - RxReferenceNumber: [id number]) baclofen 20 mg tablet RxNorm: 480146 1 Tablet(s) PO TID as needed for muscle spasm 06/18/2017 08/20/2017 Inactive Medrol (Dustin) 4 mg tablets in a dose pack RxNorm: 214077 Tablet(s) PO As Directed 06/05/2017 07/18/2017 Inactive omeprazole 40 mg capsule,delayed release RxNorm: 575066 1 Capsu le(s) PO QD 04/20/2017 10/16/2017 Inactive Premarin 1.25 mg tablet RxNorm: 964301 1-2 Tablet(s) PO QD 04/11/20 17 05/15/2018 Inactive duloxetine 60 mg capsule,delayed release RxNorm: 091621 1 Capsu le(s) PO QD 04/11/2017 09/19/2017 Inactive furosemide 40 mg tablet RxNorm: 383013 1 Tablet(s) PO Q AM prn edema--take with potassium 04/11/2017 12/11/2017 Inactive Klor-Con 8 mEq tablet,extended release RxNorm: 900847 1 Tablet( s) PO BID 04/11/2017 01/14/2018 Inactive Lipitor 10 mg tablet RxNorm: 208021 1 Tablet(s) PO QHS 04/11/201702/2018 Inactive amlodipine 5 mg-benazepril 20 mg capsule RxNorm: 755429 1 Capsu le(s) PO QD 04/11/2017 01/29/2018 Inactive allopurinol 300 mg tablet RxNorm: 613751 1 Tablet(s) PO QD 04/11/20 17 01/14/2018 Inactive clonidine HCl 0.1 mg tablet RxNorm: 208526 1 Tablet(s) PO QID 04/0508/19/2017 Inactive baclofen 20 mg tablet RxNorm: 414805 1 Tablet(s) PO TID as needed for muscle spasm 04/02/2017 06/18/2017 Inactive Premarin 1.25 mg tablet RxNorm: 499477 1-2 Tablet(s) PO QD 03/20/20 17 04/10/2017 Inactive hydrocodone 10 mg-acetaminophen 325 mg tablet RxNorm: 108694 1-2 Tablet(s) QID as needed for pain MUST LAST 30 DAYS 03/14/2017 01/21/2019 Inactive (Response to an electronic controlled substance refill request - RxReferenceNumber: [id number]) metoprolol tartrate 100 mg tablet RxNorm: 661801 1 Tablet(s) PO BID 02/12/2017 08/20/2017 Inactive hydrocodone 10 mg-acetaminophen 325 mg tablet RxNorm: 534344 1-2 Tablet(s) QID as needed for pain MUST LAST 30 DAYS 02/08/2017 03/09/2017 Inactive (Response to an electronic controlled substance refill request - [id number]) metoprolol tartrate 100 mg tablet RxNorm: 688552 TAKE O NE TABLET BY MOUTH TWICE A DAY 01/11/2017 02/12/2017 Inactive metoprolol tartrate 100 mg tablet RxNorm: 545784 1 Tablet(s) PO BID 12/18/2016 12/17/2016 Inactive metoprolol tartrate 100 mg tablet RxNorm: 811187 1 Tablet(s) PO BID 12/18/2016 01/10/2017 Inactive furosemide 40 mg tablet RxNorm: 518909 1 Tablet(s) PO Q AM prn edema--take with potassium 12/13/2016 02/10/2017 Inactive amitriptyline 100 mg tablet RxNorm: 604197 1 Tablet(s) PO QHS 11/2812/12/2016 Inactive baclofen 20 mg tablet RxNorm: 256196 1 Tablet(s) PO TID as needed for muscle spasm 11/14/2016 04/01/2017 Inactive triamterene 75 mg-hydrochlorothiazide 50 mg tablet RxNorm: 3 87676 1 Tablet(s) PO QD 11/14/2016 11/13/2016 Inactive metolazone 2.5 mg tablet RxNorm: 428200 TAKE ONE TABLET BY MOUTH DAILY NEEDED FOR EDEMA 11/14/2016 12/12/2016 Inactive triamterene 75 mg-hydrochlorothiazide 50 mg tablet RxNorm: 3 22143 1 Tablet(s) PO QD 11/14/2016 07/18/2017 Inactive amitriptyline 50 mg tablet RxNorm: 545837 TAKE ONE TABL ET BY MOUTH AT BEDTIME NEEDED FOR SLEEP 11/14/2016 11/27/2016 Inactive Cymbalta 60 mg capsule,delayed release RxNorm: 834072 1 Capsule (s) PO QHS 11/14/2016 12/12/2016 Inactive clonidine HCl 0.1 mg tablet RxNorm: 108620 1 Tablet(s) PO QID 11/1304/04/2017 Inactive amitriptyline 50 mg tablet RxNorm: 372197 1 Tablet(s) P O QHS as needed for sleep 11/01/2016 11/27/2016 Inactive duloxetine 60 mg capsule,delayed release RxNorm: 553740 TAKE ONE CAPSULE BY MOUTH DAILY 10/20/2016 01/17/2017 Inactive allopurinol 300 mg tablet RxNorm: 792093 TAKE ONE TABLET BY LOPEZ TH DAILY 10/20/2016 01/16/2017 Inactive Lyrica 75 mg capsule RxNorm: 220566 TAKE ONE CAPSULE BY MOUTH EVERY NIGHT AT BEDTIME 10/20/2016 12/10/2016 Inactive Klor-Con 8 mEq tablet,extended release RxNorm: 470735 T FARRUKH ONE TABLET BY MOUTH TWICE A DAY 10/20/2016 01/17/2017 Inactive Celebrex 200 mg capsule RxNorm: 039827 TAKE ONE CAPSULE BY MOUT H TWICE A DAY 10/20/2016 07/18/2017 Inactive Bystolic 10 mg tablet RxNorm: 392289 TAKE ONE TABLET BY MOUTH EVERY NIGHT AT BEDTIME 10/20/2016 12/17/2016 Inactive amlodipine 5 mg-benazepril 20 mg capsule RxNorm: 845910 TAKE ONE CAPSULE BY MOUTH EVERY NIGHT AT BEDTIME -- TO REPLACE AMLODOPINE 10/20/20162016 Inactive Lipitor 10 mg tablet RxNorm: 024611 TAKE ONE TABLET BY MOUTH EVERY NIGHT AT BEDTIME 10/20/2016 01/17/2017 Inactive alprazolam 0.5 mg tablet RxNorm: 576399 3 Tablet(s) PO QHS as needed for sleep/anxiety 09/20/2016 10/31/2016 Inactive Tamiflu 75 mg capsule RxNorm: 155806 1 Capsule(s) PO QD 09/19/2016 Inactive Lyrica 75 mg capsule RxNorm: 404435 1 Capsule(s) PO QHS 09/19/2016 Inactive prednisone 20 mg tablet RxNorm: 451024 1 Tablet(s) PO QD 08/10/2016 1 10/17/2015 Inactive doxycycline hyclate 100 mg capsule RxNorm: 3715347 1 Capsule(s) PO BID 08/10/2016 08/19/2016 Inactive Medrol (Dustin) 4 mg tablets in a dose pack RxNorm: 616660 Tablet(s) PO As Directed 07/31/2016 08/22/2016 Inactive Singulair 10 mg tablet RxNorm: 851902 TAKE ONE TABLET BY MOUTH JOSÉ Y 07/27/2016 07/18/2017 Inactive hydrocodone 10 mg-acetaminophen 325 mg tablet RxNorm: 098447 1-2 Tablet(s) QID as needed for pain MUST LAST 30 DAYS 07/26/2016 08/24/2016 Inactive (Response to an electronic controlled substance refill request - [id number]) alprazolam 0.5 mg tablet RxNorm: 586307 3 Tablet(s) PO QHS as needed for anxiety or sleep 07/26/2016 09/20/2016 Inactive clindamycin 300 mg capsule RxNorm: 702217 1 Capsule(s) PO TID 07/2007/29/2016 Inactive Diflucan 100 mg tablet RxNorm: 959250 1 Tablet(s) PO QD 07/20/2016 Inactive Levaquin 500 mg tablet RxNorm: 857176 1 Tablet(s) PO QD 07/17/2016 Inactive Levaquin 500 mg tablet RxNorm: 469499 1 Tablet(s) PO QD 07/10/2016 Inactive Levaquin 500 mg tablet RxNorm: 672599 1 Tablet(s) PO QD 07/10/2016 Inactive mupirocin 2 % topical ointment RxNorm: 527916 TOP Apply topically to affected areas twice daily 07/06/2016 09/18/2016 Inactive Singulair 10 mg tablet RxNorm: 015824 TAKE ONE TABLET BY MOUTH JOSÉ Y 06/21/2016 01/21/2019 Inactive alprazolam 0.5 mg tablet RxNorm: 885195 TAKE THREE TABL ETS BY MOUTH AT BEDTIME NEEDED FOR SLEEP OR STRESS 05/22/2016 06/20/2016 Inactive triamterene 75 mg-hydrochlorothiazide 50 mg tablet RxNorm: 3 95424 1 Tablet(s) PO QD 04/26/2016 10/21/2016 Inactive Premarin 1.25 mg tablet RxNorm: 899571 1-2 Tablet(s) PO QD 04/26/20 16 03/20/2017 Inactive Klor-Con 8 mEq tablet,extended release RxNorm: 809698 1 Tablet( s) PO BID 04/26/2016 10/19/2016 Inactive Celebrex 200 mg capsule RxNorm: 631321 1 Capsule(s) PO BID TAKE ONE CAPSULE BY MOUTH EVERY DAY 04/26/2016 10/19/2016 Inactive Lipitor 10 mg tablet RxNorm: 691203 1 Tablet(s) PO QHS 04/26/201605/2017 Inactive allopurinol 300 mg tablet RxNorm: 788834 1 Tablet(s) PO QD TAKE ONE TABLET BY MOUTH EVERY DAY 04/26/2016 10/19/2016 Inactive amlodipine 5 mg-benazepril 20 mg capsule RxNorm: 259780 1 Capsule(s) PO QHS replaces amlodopine 04/26/2016 10/19/2016 Inactive duloxetine 60 mg capsule,delayed release RxNorm: 302692 1 Capsu le(s) PO QD 04/26/2016 10/19/2016 Inactive Bystolic 10 mg tablet RxNorm: 024756 1 Tablet(s) PO QHS 04/26/2016 Inactive Singulair 10 mg tablet RxNorm: 342505 1 Tablet(s) PO QD TAKE ONE TABLET BY MOUTH DAILY 04/26/2016 06/20/2016 Inactive clonidine HCl 0.1 mg tablet RxNorm: 528295 1 Tablet(s) PO QID 04/2610/22/2016 Inactive hydrocodone 10 mg-acetaminophen 325 mg tablet RxNorm: 822911 1-2 Tablet(s) QID as needed for pain TAKE ONE TO TWO TABLETS BY MOUTH FOUR TIMES A DAY . MUST LAST 30 DAYS 03/31/2016 04/29/2016 Inactive (Response to an electronic controlled substance refill request - RxReferenceNumber: [id number]) Klor-Con 8 mEq tablet,extended release RxNorm: 389280 T FARRUKH ONE TABLET BY MOUTH TWICE A DAY 03/24/2016 09/29/2019 Inactive prednisone 20 mg tablet RxNorm: 887458 1 Tablet(s) PO QD 03/09/2016 0 03/08/2016 Inactive prednisone 20 mg tablet RxNorm: 267611 1 Tablet(s) PO QD 03/09/2016 0 03/13/2016 Inactive alprazolam 0.5 mg tablet RxNorm: 399625 3 Tablet(s) PO QHS as needed for sleep/stress 03/02/2016 01/21/2019 Inactive mupirocin 2 % topical ointment RxNorm: 091037 TOP twice daily to affected areas of face and neck 02/21/2016 04/25/2016 Inactive clonidine HCl 0.1 mg tablet RxNorm: 309065 TAKE ONE TAB LET BY MOUTH FOUR TIMES A DAY 02/15/2016 09/29/2019 Inactive clonidine HCl 0.1 mg tablet RxNorm: 378308 1 Tablet(s) PO QID 02/1404/25/2016 Inactive Premarin 1.25 mg tablet RxNorm: 660946 1-2 Tablet(s) PO QD 02/15/2003/15/2016 Inactive Klor-Con 8 mEq tablet,extended release RxNorm: 810770 T FARRUKH ONE TABLET BY MOUTH TWICE A DAY 02/15/2016 03/15/2016 Inactive potassium chloride ER 20 mEq tablet,extended release(part/cr yst) RxNorm: 275225 2 Tablet(s) PO BID 02/15/2016 03/15/2016 Inactive Macrobid 100 mg capsule RxNorm: 077237 1 Capsule(s) PO BID 01/24/20 16 01/30/2016 Inactive prednisone 20 mg tablet RxNorm: 329635 Take 3tabs PO QD x 2 days, then 2 tabs PO QD x 2 days, then 1 tab PO QD x 2 days, then 1/2 tab PO QDy x 2 days 12/23/2015 04/25/2016 Inactive Klor-Con 8 mEq tablet,extended release RxNorm: 570236 T FARRUKH ONE TABLET BY MOUTH TWICE A DAY 12/20/2015 02/14/2016 Inactive alprazolam 1 mg tablet RxNorm: 828828 1 1/2 Tablet(s) PO QHS 201501/23/2016 Inactive nystatin 100,000 unit/gram topical cream RxNorm: 348805 APPLY TO AFFECTED AREA(S) TWO TIMES A DAY 11/30/2015 12/14/2015 Inactive Singulair 10 mg tablet RxNorm: 781719 TAKE ONE TABLET BY MOUTH JOSÉ Y 11/18/2015 04/25/2016 Inactive allopurinol 300 mg tablet RxNorm: 673644 1 Tablet(s) PO QD TAKE ONE TABLET BY MOUTH EVERY DAY 10/26/2015 04/22/2016 Inactive Singulair 10 mg tablet RxNorm: 885061 TAKE ONE TABLET BY MOUTH JOSÉ Y 10/26/2015 11/17/2015 Inactive duloxetine 60 mg capsule,delayed release RxNorm: 808544 1 Capsu le(s) PO QD 10/26/2015 04/22/2016 Inactive triamterene 75 mg-hydrochlorothiazide 50 mg tablet RxNorm: 3 04571 1 Tablet(s) PO QD 10/26/2015 11/14/2016 Inactive potassium chloride ER 20 mEq tablet,extended release(part/cr yst) RxNorm: 856417 2 Tablet(s) PO BID 10/26/2015 02/14/2016 Inactive Lipitor 10 mg tablet RxNorm: 097119 1 Tablet(s) PO QHS 10/26/2015 Inactive amlodipine 5 mg-benazepril 20 mg capsule RxNorm: 034838 1 Capsule(s) PO QHS replaces amlodopine 10/26/2015 04/22/2016 Inactive Bystolic 10 mg tablet RxNorm: 718492 1 Tablet(s) PO QHS 10/26/2015 Inactive amlodipine 5 mg-benazepril 20 mg capsule RxNorm: 398564 1 Capsule(s) PO QHS replaces amlodopine 10/06/2015 10/25/2015 Inactive amlodipine 5 mg tablet RxNorm: 180192 1 Tablet(s) PO QHS 09/30/2015 0 04/25/2016 Inactive metolazone 2.5 mg tablet RxNorm: 118018 TAKE ONE TABLET BY MOUTH DAILY NEEDED FOR EDEMA 09/30/2015 01/21/2019 Inactive duloxetine 60 mg capsule,delayed release RxNorm: 470391 1 Capsu le(s) PO QD 09/30/2015 10/25/2015 Inactive cephalexin 500 mg capsule RxNorm: 773835 1 Capsule(s) PO BID 201509/23/2015 Inactive mupirocin 2 % topical ointment RxNorm: 069769 TOP twice daily to affected areas of face and neck 09/14/2015 02/20/2016 Inactive baclofen 20 mg tablet RxNorm: 123928 1 Tablet(s) PO TID as needed for muscle spasm 09/01/2015 11/14/2016 Inactive clonidine HCl 0.1 mg tablet RxNorm: 611930 1 Tablet(s) PO QID 09/0102/14/2016 Inactive alprazolam 1 mg tablet RxNorm: 324600 1 1/2 Tablet(s) PO QHS 201409/09/2015 Inactive baclofen 20 mg tablet RxNorm: 683007 1 Tablet(s) PO TID as needed for muscle spasm 07/23/2015 09/01/2015 Inactive omeprazole 40 mg capsule,delayed release RxNorm: 050230 1 Capsu le(s) PO QD 07/23/2015 04/25/2016 Inactive alprazolam 1 mg tablet RxNorm: 828157 1 1/2 Tablet(s) PO QHS 201408/10/2015 Inactive Bystolic 10 mg tablet RxNorm: 084516 1 Tablet(s) PO BID 06/24/2015 Inactive allopurinol 300 mg tablet RxNorm: 745744 1 Tablet(s) PO QD TAKE ONE TABLET BY MOUTH EVERY DAY 06/23/2015 10/20/2015 Inactive alprazolam 1 mg tablet RxNorm: 304037 1 1/2 Tablet(s) PO QHS 201407/06/2015 Inactive clonidine HCl 0.1 mg tablet RxNorm: 582133 1 Tablet(s) PO QID 06/0209/01/2015 Inactive clonidine HCl 0.1 mg tablet RxNorm: 580896 1 Tablet(s) PO QID 06/0206/01/2015 Inactive Cymbalta 60 mg capsule,delayed release RxNorm: 461567 1 Capsule (s) PO QHS 06/02/2015 08/30/2015 Inactive Cymbalta 60 mg capsule,delayed release RxNorm: 131679 1 Capsule (s) PO QHS 06/02/2015 06/01/2015 Inactive clonidine HCl 0.1 mg tablet RxNorm: 426321 1 Tablet(s) PO TID 05/3106/01/2015 Inactive replaces 0.2mg dose metolazone 2.5 mg tablet RxNorm: 282877 TAKE ONE TABLET BY MOUTH DAILY NEEDED FOR EDEMA 05/21/2015 06/19/2015 Inactive Singulair 10 mg tablet RxNorm: 485060 TAKE ONE TABLET BY MOUTH JOSÉ Y 05/21/2015 10/17/2015 Inactive Cymbalta 30 mg capsule,delayed release RxNorm: 671476 1 Capsule (s) PO QHS 05/20/2015 11/14/2016 Inactive betamethasone valerate 0.1 % topical cream RxNorm: 137664 Appli cation TOP BID 05/10/2015 04/25/2016 Inactive Bactroban 2 % topical ointment RxNorm: 157685 Application TOP BID 0 05/10/2015 06/20/2015 Inactive baclofen 20 mg tablet RxNorm: 506882 1 Tablet(s) PO TID as needed 0 04/26/2015 07/23/2015 Inactive Lipitor 10 mg tablet RxNorm: 241544 1 Tablet(s) PO QHS 04/26/201508/2016 Inactive clonidine HCl 0.1 mg tablet RxNorm: 068412 1 Tablet(s) PO TID 04/2605/30/2015 Inactive replaces 0.2mg dose Klor-Con 8 mEq tablet,extended release RxNorm: 010894 1 Tablet( s) PO BID 04/26/2015 04/25/2016 Inactive metolazone 2.5 mg tablet RxNorm: 432358 1 Tablet(s) PO QD as ne eded for edema 04/26/2015 04/25/2015 Inactive triamterene 75 mg-hydrochlorothiazide 50 mg tablet RxNorm: 3 10249 1 Tablet(s) PO QD 04/26/2015 10/22/2015 Inactive Premarin 1.25 mg tablet RxNorm: 584480 1-2 Tablet(s) PO QD 04/26/20 15 10/22/2015 Inactive Bystolic 10 mg tablet RxNorm: 054035 1 Tablet(s) PO QAM TAKE ONE TABLET BY MOUTH EVERY MORNING 04/23/2015 06/23/2015 Inactive clonidine HCl 0.1 mg tablet RxNorm: 627679 1 Tablet(s) PO TID 03/2304/25/2015 Inactive replaces 0.2mg dose nystatin 100,000 unit/gram topical cream RxNorm: 343130 Applica tion TOP BID 03/23/2015 06/20/2015 Inactive baclofen 20 mg tablet RxNorm: 921259 1 Tablet(s) PO TID as needed 0 03/23/2015 04/25/2015 Inactive Premarin 1.25 mg tablet RxNorm: 159046 1-2 Tablet(s) PO QD 03/23/20 15 04/25/2015 Inactive Klor-Con 8 mEq tablet,extended release RxNorm: 688077 1 Tablet( s) PO BID 03/23/2015 04/25/2015 Inactive cefdinir 300 mg capsule RxNorm: 706964 2 Capsule(s) PO QD 03/16/2015 03/25/2015 Inactive baclofen 20 mg tablet RxNorm: 690934 1 Tablet(s) PO TID as needed 0 03/02/2015 03/22/2015 Inactive allopurinol 300 mg tablet RxNorm: 512688 1 Tablet(s) PO QD TAKE ONE TABLET BY MOUTH EVERY DAY 02/22/2015 05/22/2015 Inactive Klor-Con M20 mEq tablet,extended release RxNorm: 540922 2 Tablet(s) PO BID to use with lasix 02/22/2015 06/20/2015 Inactive clonidine HCl 0.1 mg tablet RxNorm: 093934 1 Tablet(s) PO TID 02/1903/22/2015 Inactive replaces 0.2mg dose Lipitor 10 mg tablet RxNorm: 856633 1 Tablet(s) PO QHS 01/20/201506/2015 Inactive Lipitor 10 mg tablet RxNorm: 766494 1 Tablet(s) PO QHS 01/20/2015 Inactive Singulair 10 mg tablet RxNorm: 181258 1 Tablet(s) PO QD TAKE ONE TABLET BY MOUTH EVERY DAY 11/20/2014 05/18/2015 Inactive Lipitor 10 mg tablet RxNorm: 908468 1 Tablet(s) PO QHS 11/20/201408/2015 Inactive allopurinol 300 mg tablet RxNorm: 986189 1 Tablet(s) PO QD TAKE ONE TABLET BY MOUTH EVERY DAY 11/20/2014 02/16/2015 Inactive Bystolic 10 mg tablet RxNorm: 964782 1 Tablet(s) PO QAM TAKE ONE TABLET BY MOUTH EVERY MORNING 11/20/2014 04/22/2015 Inactive Klor-Con 8 mEq tablet,extended release RxNorm: 316865 1 Tablet( s) PO BID 11/20/2014 02/17/2015 Inactive baclofen 20 mg tablet RxNorm: 063776 1 Tablet(s) PO TID as needed 0 11/20/2014 01/21/2019 Inactive baclofen 20 mg tablet RxNorm: 363205 1 Tablet(s) PO TID as needed 0 10/27/2014 11/19/2014 Inactive baclofen 20 mg tablet RxNorm: 450995 1 Tablet(s) PO TID as needed 0 10/26/2014 03/01/2015 Inactive allopurinol 300 mg tablet RxNorm: 996056 1 Tablet(s) PO QD TAKE ONE TABLET BY MOUTH EVERY DAY 10/26/2014 11/20/2014 Inactive Bystolic 10 mg tablet RxNorm: 164161 1 Tablet(s) PO QAM TAKE ONE TABLET BY MOUTH EVERY MORNING 10/26/2014 11/20/2014 Inactive clonidine HCl 0.1 mg tablet RxNorm: 838952 1 Tablet(s) PO TID 09/2805/27/2019 Inactive replaces 0.2mg dose clonidine HCl 0.1 mg tablet RxNorm: 502138 1 Tablet(s) PO TID 09/2802/18/2015 Inactive replaces 0.2mg dose baclofen 20 mg tablet RxNorm: 044653 1 Tablet(s) PO TID as needed 1 11/01/2013 08/30/2014 Inactive Lipitor 10 mg tablet RxNorm: 076072 1 Tablet(s) PO QHS 08/31/2014 Inactive baclofen 20 mg tablet RxNorm: 354635 1 Tablet(s) PO TID as needed 1 11/01/2013 10/26/2014 Inactive triamterene 75 mg-hydrochlorothiazide 50 mg tablet RxNorm: 3 97653 1 Tablet(s) PO QD 08/31/2014 02/26/2015 Inactive Klor-Con 8 mEq tablet,extended release RxNorm: 532425 1 Tablet( s) PO BID 08/31/2014 11/20/2014 Inactive baclofen 20 mg tablet RxNorm: 772994 1 Tablet(s) PO TID as needed 1 09/30/2013 10/25/2014 Inactive baclofen 20 mg tablet RxNorm: 108382 1 Tablet(s) PO TID as needed 1 09/30/2013 08/31/2014 Inactive omeprazole 40 mg capsule,delayed release RxNorm: 201974 1 Capsu le(s) PO QD 07/21/2014 07/23/2015 Inactive Flonase 50 mcg/actuation nasal spray,suspension RxNorm: 8963 23 1 [place] NASAL BID 07/15/2014 04/09/2017 Inactive hydrocodone 10 mg-acetaminophen 325 mg tablet RxNorm: 856613 1-2 Tablet(s) QID as needed for pain TAKE ONE TO TWO TABLETS BY MOUTH FOUR TIMES A DAY . MUST LAST 30 DAYS 06/30/2014 07/27/2014 Inactive (Response to an electronic controlled substance refill request - [facility] [id number]) baclofen 20 mg tablet RxNorm: 102713 1 Tablet(s) PO TID as needed 1 07/31/2014 Inactive Singulair 10 mg tablet RxNorm: 958458 1 Tablet(s) PO QD TAKE ONE TABLET BY MOUTH EVERY DAY 05/25/2014 11/20/2014 Inactive Bystolic 10 mg tablet RxNorm: 314809 TAKE ONE TABLET BY MOUTH E VERY MORNING 05/25/2014 09/21/2014 Inactive allopurinol 300 mg tablet RxNorm: 053300 1 Tablet(s) PO QD TAKE ONE TABLET BY MOUTH EVERY DAY 05/25/2014 10/21/2014 Inactive baclofen 20 mg tablet RxNorm: 684215 1 Tablet(s) PO TID as needed 0 05/25/2014 06/29/2014 Inactive allopurinol 300 mg tablet RxNorm: 824228 TAKE ONE TABLET BY LOPEZ TH EVERY DAY 05/25/2014 09/21/2014 Inactive Singulair 10 mg tablet RxNorm: 748310 1 Tablet(s) PO QD TAKE ONE TABLET BY MOUTH EVERY DAY 05/25/2014 05/24/2014 Inactive Bystolic 10 mg tablet RxNorm: 627970 1 Tablet(s) PO QAM TAKE ONE TABLET BY MOUTH EVERY MORNING 05/25/2014 10/21/2014 Inactive metolazone 2.5 mg tablet RxNorm: 663944 1 Tablet(s) PO QD as ne eded for edema 05/18/2014 04/25/2015 Inactive Lasix 40 mg tablet RxNorm: 540569 1 Tablet(s) PO QAM s hould take potassium supplementation with this medication 05/14/2014 05/17/2014 Inactive hydrocodone 10 mg-acetaminophen 325 mg tablet RxNorm: 391435 1-2 Tablet(s) QID as needed for pain TAKE ONE TO TWO TABLETS BY MOUTH FOUR TIMES A DAY . MUST LAST 30 DAYS 05/07/2014 06/05/2014 Inactive (Response to an electronic controlled substance refill request - RxReferenceNumber: [id number]) alprazolam 0.5 mg tablet RxNorm: 725783 TAKE ONE TABLET BY MOUTH TWICE A DAY , MUST LAST 30 DAYS 05/07/2014 05/22/2016 Inactive (Response to a n electronic controlled substance refill request - RxReferenceNumber: [id number]) diclofenac sodium 75 mg tablet,delayed release RxNorm: 98377 6 1 Tablet(s) PO BID for pain 04/24/2014 07/20/2014 Inactive Celebrex 200 mg capsule RxNorm: 382226 TAKE ONE CAPSULE BY MOUT H EVERY DAY 04/24/2014 07/20/2014 Inactive alprazolam 0.5 mg tablet RxNorm: 370835 TAKE ONE TABLET BY MOUTH TWICE A DAY , MUST LAST 30 DAYS 03/24/2014 04/22/2014 Inactive (Response to a n electronic controlled substance refill request - RxReferenceNumber: [id number]) diclofenac sodium 75 mg tablet,delayed release RxNorm: 64778 6 1 Tablet(s) PO BID for pain 03/24/2014 04/24/2014 Inactive clonidine HCl 0.1 mg tablet RxNorm: 832335 1 Tablet(s) PO TID 03/2409/28/2014 Inactive replaces 0.2mg dose Klor-Con 8 mEq tablet,extended release RxNorm: 666210 1 Tablet( s) PO BID 02/26/2014 08/31/2014 Inactive diclofenac sodium 75 mg tablet,delayed release RxNorm: 33378 6 1 Tablet(s) PO BID for pain 02/25/2014 03/24/2014 Inactive hydrocodone 10 mg-acetaminophen 325 mg tablet RxNorm: 915113 1-2 Tablet(s) QID as needed for pain TAKE ONE TO TWO TABLETS BY MOUTH FOUR TIMES A DAY . MUST LAST 30 DAYS 02/25/2014 03/26/2014 Inactive (Response to an electronic controlled substance refill request - RxReferenceNumber: [id number]) alprazolam 0.5 mg tablet RxNorm: 096887 Tablet(s) PO BI D as needed for anxiety TAKE ONE TABLET BY MOUTH TWICE A DAY , MUST LAST 30 DAYS 02/25/2014 Inactive (Response to an electronic controlled [place] bstance refill request - RxReferenceNumber: [id number]) [AttnRPh: Saving apply/adjudicate RxGRP:SG20 RxBIN:[id number] RxPCN: ID#:[id number]] alprazolam 0.5 mg tablet RxNorm: 522933 Tablet(s) TAKE ONE TABLET BY MOUTH TWICE A DAY , MUST LAST 30 DAYS 01/27/2014 02/24/2014 Inactive (Respo nse to an electronic controlled substance refill request - RxReferenceNumber: [id number]) [AttnRPh: Saving apply/adjudicate RxGRP:SG20 RxBIN:[id number] RxPCN: ID#:[id number]] hydrocodone 10 mg-acetaminophen 325 mg tablet RxNorm: 181498 1-2 Tablet(s) QID as needed for pain TAKE ONE TO TWO TABLETS BY MOUTH FOUR TIMES A DAY . MUST LAST 30 DAYS 01/27/2014 02/24/2014 Inactive (Response to an electronic controlled substance refill request - RxReferenceNumber: [id number]) alprazolam 0.5 mg tablet RxNorm: 105022 TAKE ONE TABLET BY MOUTH TWICE A DAY , MUST LAST 30 DAYS 01/27/2014 01/26/2014 Inactive (Response to a n electronic controlled substance refill request - RxReferenceNumber: [id number]) Premarin 1.25 mg tablet RxNorm: 902810 1-2 Tablet(s) PO QD 01/28/20 14 07/25/2014 Inactive alprazolam 0.5 mg tablet RxNorm: 700997 TAKE ONE TABLET BY MOUTH TWICE A DAY , MUST LAST 30 DAYS 01/27/2014 01/27/2014 Inactive (Response to a n electronic controlled substance refill request - RxReferenceNumber: [id number]) hydrocodone 10 mg-acetaminophen 325 mg tablet RxNorm: 009911 TAKE ONE TO TWO TABLETS BY MOUTH FOUR TIMES A DAY . MUST LAST 30 DAYS 01/27/20142013 Inactive (Response to an electronic controlled [place] bstance refill request - RxReferenceNumber: [id number]) Celebrex 200 mg capsule RxNorm: 797004 1 Capsule(s) PO QD TAKE ONE CAPSULE BY MOUTH EVERY DAY 12/29/2013 04/27/2014 Inactive hydrocodone 10 mg-acetaminophen 325 mg tablet RxNorm: 986386 1-2 Tablet(s) PO QID as needed for severe pain 12/29/2013 01/27/2014 Inactive allopurinol 300 mg tablet RxNorm: 838895 1 Tablet(s) PO QD TAKE ONE TABLET BY MOUTH EVERY DAY 12/29/2013 05/24/2014 Inactive alprazolam 0.5 mg tablet RxNorm: 247711 TAKE ONE TABLET BY MOUTH TWICE A DAY , MUST LAST 30 DAYS 12/29/2013 01/27/2014 Inactive (Response to a n electronic controlled substance refill request - RxReferenceNumber: [id number]) Celebrex 200 mg capsule RxNorm: 340594 1 Capsule(s) PO QD TAKE ONE CAPSULE BY MOUTH EVERY DAY 12/29/2013 12/29/2013 Inactive Bystolic 10 mg tablet RxNorm: 482845 1 Tablet(s) PO QAM TAKE ONE TABLET BY MOUTH EVERY MORNING 12/29/2013 05/24/2014 Inactive Bystolic 10 mg tablet RxNorm: 223663 1 Tablet(s) PO QAM TAKE ONE TABLET BY MOUTH EVERY MORNING 12/29/2013 12/29/2013 Inactive Singulair 10 mg tablet RxNorm: 247857 1 Tablet(s) PO QD TAKE ONE TABLET BY MOUTH EVERY DAY 12/29/2013 05/25/2014 Inactive hydrocodone 10 mg-acetaminophen 325 mg tablet RxNorm: 137685 TAKE ONE TO TWO TABLETS BY MOUTH FOUR TIMES A DAY . MUST LAST 30 DAYS 12/29/20132013 Inactive (Response to an electronic controlled [place] bstance refill request - RxReferenceNumber: [id number]) Trazadone 75mg Tablet RxNorm: 1 Tablet(s) PO QHS as needed 03/23/2014 Inactive Trazadone 75mg Tablet RxNorm: 1 Tablet(s) PO QHS 12/24/20132014 Inactive Soma 350 mg tablet RxNorm: 325085 Tablet(s) PO TAKE ON E TABLET BY MOUTH THREE TIMES A DAY NEEDED FOR MUSCLE SPASMS. THIS MUST LAST 30 DAYS BETWEEN REFILLS. 12/10/2013 12/22/2013 Inactive (Appended: Cont rolled substance eRx refill - RxReferenceNumber: [id number]) diclofenac sodium 75 mg tablet,delayed release RxNorm: 45418 6 1 Tablet(s) PO BID for pain 12/10/2013 02/24/2014 Inactive allopurinol 300 mg tablet RxNorm: 079433 1 Tablet(s) PO QD 11/20/19 14 12/29/2013 Inactive alprazolam 0.5 mg tablet RxNorm: 576279 2 Tablet(s) PO BID 11/13/19 14 12/29/2013 Inactive prn clonidine 0.1 mg tablet RxNorm: 931787 1 Tablet(s) PO TID 11/12/2013 02/09/2014 Inactive replaces 0.2mg dose Klor-Con M20 mEq tablet,extended release RxNorm: 408357 2 Tablet(s) PO BID to use with lasix 11/12/2013 05/10/2014 Inactive Singulair 10 mg tablet RxNorm: 447975 1 Tablet(s) PO QD 11/12/2013 Inactive hydrocodone 10 mg-acetaminophen 325 mg tablet RxNorm: 780280 1-2 Tablet(s) PO QID as needed for severe pain 11/12/2013 12/28/2013 Inactive Bystolic 10 mg tablet RxNorm: 438733 1 Tablet(s) PO QAM 11/12/2013 Inactive Soma 350 mg tablet RxNorm: 312443 Tablet(s) PO TAKE ON E TABLET BY MOUTH THREE TIMES A DAY NEEDED FOR MUSCLE SPASMS. THIS MUST LAST 30 DAYS BETWEEN REFILLS. 10/13/2013 12/10/2013 Inactive (Appended: Cont rolled substance eRx refill - RxReferenceNumber: [id number]) hydrocodone 10 mg-acetaminophen 325 mg tablet RxNorm: 704895 1-2 Tablet(s) PO QID as needed for severe pain 10/03/2013 11/11/2013 Inactive diclofenac sodium 75 mg tablet,delayed release RxNorm: 16935 8 1 Tablet(s) PO BID for pain 09/11/2013 12/10/2013 Inactive alprazolam 0.5 mg tablet RxNorm: 104091 1 Tablet(s) PO BID May refill on 04/26/13 09/01/2013 10/30/2013 Inactive prn hydrocodone 10 mg-acetaminophen 325 mg tablet RxNorm: 078924 1-2 Tablet(s) PO QID as needed for severe pain 09/01/2013 10/02/2013 Inactive triamterene 75 mg-hydrochlorothiazide 50 mg tablet RxNorm: 3 97126 1 Tablet(s) PO QD 08/04/2013 08/31/2014 Inactive cyclobenzaprine 10 mg tablet RxNorm: 521955 1 Tablet(s) PO TID prn spasm 08/04/2013 08/13/2013 Inactive clonidine 0.1 mg tablet RxNorm: 941390 1 Tablet(s) PO TID 08/04/2013 11/11/2013 Inactive replaces 0.2mg dose cyclobenzaprine 10 mg tablet RxNorm: 297617 1 Tablet(s) PO TID prn spasm 07/23/2013 08/01/2013 Inactive hydrocodone 10 mg-acetaminophen 325 mg tablet RxNorm: 594997 2 1-2 Tablet(s) PO QID as needed for severe pain 06/09/2013 08/07/2013 Inactive Singulair 10 mg tablet RxNorm: 537599 1 Tablet(s) PO QD 05/29/2013 Inactive Klor-Con 8 mEq tablet,extended release RxNorm: 823076 1 Tablet( s) PO BID 05/29/2013 02/26/2014 Inactive allopurinol 300 mg tablet RxNorm: 206107 1 Tablet(s) PO QD 05/29/20 13 11/19/2013 Inactive Bystolic 10 mg tablet RxNorm: 164881 1 Tablet(s) PO QAM take one daily in the morning. 05/29/2013 11/11/2013 Inactive scopolamine 1.5 mg 72 hr Transderm Patch RxNorm: 743933 Application TD Q72H for motion sickness 05/26/2013 07/22/2013 Inactive Soma 350 mg tablet RxNorm: 979563 1 Tablet(s) PO TID as needed for spasm 05/19/2013 10/13/2013 Inactive diclofenac sodium 75 mg tablet,delayed release RxNorm: 19174 8 1 Tablet(s) PO BID for pain 05/14/2013 07/22/2013 Inactive allopurinol 300 mg tablet RxNorm: 847421 1 Tablet(s) PO QD 04/25/20 13 05/28/2013 Inactive alprazolam 0.5 mg tablet RxNorm: 683862 1 Tablet(s) PO BID May refill on 04/26/13 04/25/2013 06/23/2013 Inactive prn Celebrex 200 mg capsule RxNorm: 718186 1 Capsule(s) PO QD 04/16/2013 12/29/2013 Inactive alprazolam 0.5 mg tablet RxNorm: 388618 1 Tablet(s) PO BID May refill on 04/26/13 04/16/2013 04/24/2013 Inactive prn Soma 350 mg tablet RxNorm: 261054 1 Tablet(s) PO TID as needed for spasm 04/16/2013 No Stop Date Active Lasix 40 mg tablet RxNorm: 268841 1 Tablet(s) PO QAM s rajwinderuld take potassium supplementation with this medication 04/16/2013 06/14/2013 Inactive clonidine 0.1 mg tablet RxNorm: 192200 1 Tablet(s) PO TID 04/16/2013 08/03/2013 Inactive replaces 0.2mg dose prednisone 20 mg tablet RxNorm: 192475 1 Tablet(s) PO BID 04/16/2013 04/20/2013 Inactive diclofenac sodium 75 mg tablet,delayed release RxNorm: 81947 8 1 Tablet(s) PO BID for pain 04/14/2013 05/13/2013 Inactive hydrocodone 10 mg-acetaminophen 325 mg tablet RxNorm: 739301 2 1-2 Tablet(s) PO QID as needed for severe pain 04/14/2013 No Stop Date Active Lasix 40 mg tablet RxNorm: 927661 1 Tablet(s) PO QAM s hould take potassium supplementation with this medication 03/31/2013 04/15/2013 Inactive Celebrex 200 mg capsule RxNorm: 147424 1 Capsule(s) PO QD 03/31/2013 04/15/2013 Inactive alprazolam 0.5 mg tablet RxNorm: 430272 1 Tablet(s) PO BID 03/28/20 13 04/15/2013 Inactive prn hydrocodone 10 mg-acetaminophen 325 mg tablet RxNorm: 228677 2 1-2 Tablet(s) PO QID as needed for severe pain 03/10/2013 No Stop Date Active metformin ER 500 mg 24 hr tablet,extended release RxNorm: 86 1018 1 Tablet(s) PO QD 03/06/2013 07/22/2013 Inactive clindamycin 300 mg capsule RxNorm: 248831 2 Capsule(s) PO TID 03/0503/14/2013 Inactive Zaroxolyn 2.5 mg tablet RxNorm: 691260 1 Tablet(s) PO QAM 03/05/2013 05/19/2015 Inactive amlodipine 10 mg tablet RxNorm: 431439 1 Tablet(s) PO QD 03/03/2013 0 05/25/2013 Inactive Norvasc 10 mg tablet RxNorm: 806867 1 Tablet(s) PO QD 02/28/201307/11 Inactive Celebrex 200 mg capsule RxNorm: 882853 1 Capsule(s) PO QD 02/28/2013 03/30/2013 Inactive diclofenac sodium 75 mg tablet,delayed release RxNorm: 16116 8 1 Tablet(s) PO BID for pain 02/14/2013 03/15/2013 Inactive Soma 350 mg tablet RxNorm: 499754 1 Tablet(s) PO TID as needed for spasm 02/14/2013 No Stop Date Active hydrocodone 10 mg-acetaminophen 325 mg tablet RxNorm: 233634 2 1-2 Tablet(s) PO QID as needed for severe pain 02/14/2013 No Stop Date Active Norvasc 10 mg tablet RxNorm: 338562 1 Tablet(s) PO QD 02/10/201302/09 Inactive Celebrex 200 mg capsule RxNorm: 081563 1 Capsule(s) PO QD 01/27/2013 01/26/2013 Inactive Premarin 1.25 mg tablet RxNorm: 254472 1-2 Tablet(s) PO QD 01/28/20 13 06/25/2013 Inactive alprazolam 0.5 mg tablet RxNorm: 387607 1 Tablet(s) PO BID 01/28/20 13 02/25/2013 Inactive prn amlodipine 5 mg tablet RxNorm: 643491 1 Tablet(s) PO QD 01/27/2013 Inactive Celebrex 200 mg capsule RxNorm: 695100 1 Capsule(s) PO QD 01/27/2013 02/27/2013 Inactive gabapentin 600 mg tablet RxNorm: 538108 1 Tablet(s) PO QHS 01/16/20 13 07/22/2013 Inactive Soma 350 mg tablet RxNorm: 025871 1 Tablet(s) PO TID as needed for spasm 01/15/2013 No Stop Date Active hydrocodone 10 mg-acetaminophen 325 mg tablet RxNorm: 374439 2 1-2 Tablet(s) PO QID as needed for severe pain 01/15/2013 No Stop Date Active Soma 350 mg tablet RxNorm: 704093 1 Tablet(s) PO TID as needed for spasm 01/13/2013 No Stop Date Active alprazolam 0.5 mg tablet RxNorm: 174791 1 Tablet(s) PO BID 12/31/19 13 01/26/2013 Inactive prn diclofenac sodium 75 mg tablet,delayed release RxNorm: 24822 8 1 Tablet(s) PO BID for pain 12/09/2012 01/07/2013 Inactive gabapentin 600 mg tablet RxNorm: 090922 1 Tablet(s) PO QHS 12/10/19 13 01/07/2013 Inactive hydrocodone 10 mg-acetaminophen 325 mg tablet RxNorm: 715399 2 1-2 Tablet(s) PO QID as needed for severe pain 12/02/2012 No Stop Date Active Levaquin 750 mg tablet RxNorm: 312883 1 Tablet(s) PO QD 11/21/2012 Inactive Singulair 10 mg tablet RxNorm: 757200 1 Tablet(s) PO QD 11/11/2012 Inactive clonidine 0.2 mg tablet RxNorm: 468141 1 Tablet(s) PO TID 11/11/2012 04/15/2013 Inactive alprazolam 0.5 mg tablet RxNorm: 311926 1 Tablet(s) PO BID 11/12/19 13 12/10/2012 Inactive prn Klor-Con 8 mEq tablet,extended release RxNorm: 408272 1 Tablet( s) PO BID 11/11/2012 03/04/2013 Inactive hydrocodone 10 mg-acetaminophen 325 mg tablet RxNorm: 844540 2 1-2 Tablet(s) PO QID as needed for severe pain 11/06/2012 No Stop Date Active alprazolam 0.5 mg tablet RxNorm: 595782 1 Tablet(s) PO BID 10/15/19 13 11/10/2012 Inactive prn hydrocodone-acetaminophen 10 mg-325 mg tablet RxNorm: 443881 2 1-2 Tablet(s) PO QID as needed for severe pain 10/10/2012 10/09/2012 Inactive allopurinol 300 mg tablet RxNorm: 528515 1 Tablet(s) PO QD 09/20/19 13 12/18/2012 Inactive alprazolam 0.5 mg tablet RxNorm: 821041 1 Tablet(s) PO BID 09/17/19 13 10/14/2012 Inactive prn hydrocodone-acetaminophen 10 mg-325 mg tablet RxNorm: 814057 2 1-2 Tablet(s) PO QID as needed for severe pain 08/22/2012 08/21/2012 Inactive Norvasc 10 mg tablet RxNorm: 370777 1 Tablet(s) PO QD 08/12/201201/10 Inactive Premarin 1.25 mg tablet RxNorm: 027694 1-2 Tablet(s) PO QD 07/30/20 12 12/26/2012 Inactive alprazolam 0.5 mg tablet RxNorm: 889770 1 Tablet(s) PO BID 07/29/20 12 08/27/2012 Inactive prn Klor-Con 8 mEq tablet,extended release RxNorm: 776433 1 Tablet( s) PO BID 07/29/2012 11/10/2012 Inactive hydrocodone-acetaminophen 10 mg-325 mg tablet RxNorm: 415179 2 1-2 Tablet(s) PO QID as needed for severe pain 07/29/2012 No Stop Date Active Premarin 1.25 mg tablet RxNorm: 552978 1-2 Tablet(s) PO QD 07/29/20 12 07/29/2012 Inactive clonidine 0.2 mg tablet RxNorm: 114495 1 Tablet(s) PO TID 07/29/2012 10/28/2012 Inactive ketorolac 10 mg tablet RxNorm: 163866 1 Tablet(s) PO QID prn he adache 07/18/2012 No Stop Date Active hydrocodone-acetaminophen 10 mg-325 mg tablet RxNorm: 727812 2 1-2 Tablet(s) PO QID as needed for severe pain 07/03/2012 No Stop Date Active amlodipine 5 mg tablet RxNorm: 807869 1 Tablet(s) PO QD 07/02/2012 Inactive allopurinol 300 mg tablet RxNorm: 506229 1 Tablet(s) PO QD 07/02/2009/19/2012 Inactive Celebrex 200 mg capsule RxNorm: 436530 1 Capsule(s) PO QD for j oint pain 06/26/2012 10/23/2012 Inactive diclofenac sodium 75 mg tablet,delayed release RxNorm: 21145 8 1 Tablet(s) PO BID for pain 06/19/2012 09/16/2012 Inactive hydrocodone-acetaminophen 10 mg-325 mg tablet RxNorm: 115251 2 1-2 Tablet(s) PO QID as needed for severe pain 06/10/2012 No Stop Date Active alprazolam 0.5 mg tablet RxNorm: 876753 1 Tablet(s) PO BID 06/03/20 12 07/02/2012 Inactive prn ketorolac 10 mg tablet RxNorm: 632144 1 Tablet(s) PO Q8H 05/27/2012 0 01/21/2019 Inactive as needed for headache hydrocodone-acetaminophen 10 mg-325 mg tablet RxNorm: 460430 2 1-2 Tablet(s) PO QID as needed for severe pain 05/15/2012 No Stop Date Active allopurinol 300 mg tablet RxNorm: 850796 1 Tablet(s) PO QD 05/14/20 12 06/12/2012 Inactive allopurinol 300 mg tablet RxNorm: 640442 1 Tablet(s) PO QD 05/14/20 12 05/13/2012 Inactive amlodipine 5 mg tablet RxNorm: 249687 1 Tablet(s) PO QD 05/01/2012 Inactive amlodipine 5 mg Tab RxNorm: 420381 1 Tablet(s) PO QD 05/01/201204/30 Inactive Celebrex 200 mg capsule RxNorm: 881995 1 Capsule(s) PO QD for j oint pain 05/01/2012 06/25/2012 Inactive Singulair 10 mg tablet RxNorm: 206918 1 Tablet(s) PO QD 05/01/2012 Inactive alprazolam 0.5 mg tablet RxNorm: 484902 1 Tablet(s) PO BID 05/01/2005/30/2012 Inactive prn Celebrex 200 mg Cap RxNorm: 725550 1 Capsule(s) PO QD for joint radu n 05/01/2012 04/30/2012 Inactive hydrocodone-acetaminophen 10 mg-325 mg tablet RxNorm: 227889 2 1-2 Tablet(s) PO QID as needed for severe pain 04/19/2012 No Stop Date Active Lasix 40 mg tablet RxNorm: 815602 1 Tablet(s) PO CORTEZM alan ashley take potassium supplementation with this medication 04/05/2012 06/03/2012 Inactive alprazolam 0.5 mg Tab RxNorm: 507745 1 Tablet(s) PO BID 04/05/2012 Inactive prn hydrocodone-acetaminophen 10 mg-325 mg Tab RxNorm: 5653776 1-2 Tablet(s) PO QID as needed for severe pain 03/25/2012 03/24/2012 Inactive clonidine 0.2 mg Tab RxNorm: 054298 1 Tablet(s) PO TID 03/08/2012 Inactive alprazolam 0.5 mg Tab RxNorm: 930940 1 Tablet(s) PO BID 03/08/2012 Inactive prn Soma 350 mg tablet RxNorm: 642027 1 Tablet(s) PO TID for spasm 02/0903/18/2012 Inactive clonidine 0.2 mg tablet RxNorm: 700729 1 Tablet(s) PO TID 03/08/2012 07/28/2012 Inactive Celebrex 200 mg Cap RxNorm: 448753 1 Capsule(s) PO QD for joint radu n 03/01/2012 04/29/2012 Inactive amlodipine 5 mg Tab RxNorm: 874760 1 Tablet(s) PO QD 02/26/201202/24 Inactive amlodipine 5 mg Tab RxNorm: 401231 1 Tablet(s) PO QD 02/26/201204/25 Inactive Bactroban 2 % Ointment RxNorm: 334801 Application TOP QID to sores 02/23/2012 No Stop Date Active amlodipine 2.5 mg tablet RxNorm: 566350 1 Tablet(s) PO QHS 02/20/20 12 02/25/2012 Inactive doxycycline hyclate 100 mg Cap RxNorm: 4904201 1 Capsule(s) PO BID 02/20/2012 02/29/2012 Inactive hydrocodone-acetaminophen 10 mg-325 mg Tab RxNorm: 8287062 1-2 T ablet(s) PO QID 02/08/2012 No Stop Date Active alprazolam 0.5 mg Tab RxNorm: 073790 1 Tablet(s) PO BID 02/08/2012 Inactive prn Singulair 10 mg Tab RxNorm: 996230 1 Tablet(s) PO QD 02/08/201204/30 Inactive Soma 350 mg Tab RxNorm: 540530 1 Tablet(s) PO TID for spasm 03/07/2012 Inactive Soma 350 mg Tab RxNorm: 706533 1 Tablet(s) PO TID for spasm 02/05/2012 Inactive diclofenac sodium 75 mg tablet,delayed release RxNorm: 13238 8 1 Tablet(s) PO BID for pain 02/01/2012 03/18/2012 Inactive Celebrex 200 mg Cap RxNorm: 270192 1 Capsule(s) PO QD for joint radu n 01/30/2012 02/28/2012 Inactive Lasix 40 mg Tab RxNorm: 227731 1 Tablet(s) PO QAM 01/24/2012 03/18/20 12 Inactive potassium chloride ER 20 mEq tablet,extended release(part/cr yst) RxNorm: 088518 2 Tablet(s) PO BID 01/24/2012 02/22/2012 Inactive alprazolam 0.5 mg Tab RxNorm: 443057 1 Tablet(s) PO BID 01/11/2012 Inactive prn hydrocodone-acetaminophen 10 mg-325 mg Tab RxNorm: 9899277 1-2 T ablet(s) PO QID 01/11/2012 No Stop Date Active Ambien 10 mg Tab RxNorm: 992694 1 Tablet(s) PO QHS 01/11/2012 012 Inactive Klor-Con 8 mEq Tab RxNorm: 967986 1 Tablet(s) PO BID 01/11/201201/22 Inactive diclofenac sodium 75 mg Tab, Delayed Release RxNorm: 614565 1 Tablet(s) PO BID for pain 01/10/2012 01/31/2012 Inactive Ambien 10 mg Tab RxNorm: 538142 1 Tablet(s) PO QHS 12/11/2011 012 Inactive alprazolam 0.5 mg Tab RxNorm: 372697 1 Tablet(s) PO BID 12/11/2011 Inactive prn hydrocodone 10 mg-acetaminophen 325 mg tablet RxNorm: 820702 1-2 Tablet(s) PO TID 11/28/2011 No Stop Date Active as needed for pa in - Previous quantity #240, will start dosing for #180 in April 2011 per Doctor Td. Ambien 10 mg Tab RxNorm: 064087 1 Tablet(s) PO QHS 11/09/2011 012 Inactive alprazolam 0.5 mg Tab RxNorm: 482276 1 Tablet(s) PO BID 11/09/2011 Inactive prn hydrocodone-acetaminophen 10 mg-325 mg Tab RxNorm: 4322887 1-2 T ablet(s) PO TID 11/06/2011 No Stop Date Active as needed for pain - Previous quantity #240, will start dosing for #180 in April 2011 per Doctor Td. Singulair 10 mg Tab RxNorm: 936556 1 Tablet(s) PO QD 10/13/201110/12 Inactive Singulair 10 mg Tab RxNorm: 303159 1 Tablet(s) PO QD 10/13/201102/06 Inactive hydrocodone-acetaminophen 10 mg-325 mg Tab RxNorm: 0026022 1-2 T ablet(s) PO TID 10/10/2011 10/09/2011 Inactive as needed for pain - Previous quantity #240, will start dosing for #180 in April 2011 per Doctor Td. hydrocodone-acetaminophen 10 mg-325 mg Tab RxNorm: 3652823 1-2 T ablet(s) PO TID 10/09/2011 No Stop Date Active as needed for pain - Previous quantity #240, will start dosing for #180 in April 2011 per Doctor Td. Klor-Con 8 mEq Tab RxNorm: 230176 1 Tablet(s) PO BID 10/02/201101/09 Inactive triamterene 75 mg-hydrochlorothiazide 50 mg tablet RxNorm: 3 32067 1 Tablet(s) PO QD 09/14/2011 03/06/2013 Inactive Ambien 10 mg Tab RxNorm: 715412 1 Tablet(s) PO QHS 09/14/2011 012 Inactive hydrocodone-acetaminophen 10 mg-325 mg Tab RxNorm: 5802753 1-2 T ablet(s) PO TID 09/14/2011 No Stop Date Active as needed for pain - Previous quantity #240, will start dosing for #180 in April 2011 per Doctor Td. alprazolam 0.5 mg Tab RxNorm: 994931 1 Tablet(s) PO BID 09/14/2011 Inactive prn Zithromax 500 mg Tab RxNorm: 491929 1 Tablet(s) PO QD 09/13/201109/10 Inactive prednisone 20 mg Tab RxNorm: 979975 1 Tablet(s) PO BID 08/31/2011 Inactive Ambien 10 mg Tab RxNorm: 982083 1 Tablet(s) PO QHS 08/17/2011 011 Inactive hydrocodone-acetaminophen 10 mg-325 mg Tab RxNorm: 8780502 1-2 T ablet(s) PO TID 08/17/2011 No Stop Date Active as needed for pain - Previous quantity #240, will start dosing for #180 in April 2011 per Doctor Td. clonidine 0.2 mg Tab RxNorm: 264686 1 Tablet(s) PO TID 08/17/201112/2011 Inactive Ambien 10 mg Tab RxNorm: 117081 1 Tablet(s) PO QHS 08/17/2011 019 Inactive alprazolam 0.5 mg Tab RxNorm: 127714 1 Tablet(s) PO BID 08/17/2011 Inactive prn hydrocodone-acetaminophen 10 mg-325 mg Tab RxNorm: 5551768 1-2 T ablet(s) PO TID 08/17/2011 08/16/2011 Inactive as needed for pain - Previous quantity #240, will start dosing for #180 in April 2011 per Doctor Td. Singulair 10 mg Tab RxNorm: 805621 1 Tablet(s) PO QD 08/17/201108/16 Inactive Klor-Con 8 mEq Tab RxNorm: 181847 1 Tablet(s) PO QD 08/17/20112011 Inactive alprazolam 0.5 mg Tab RxNorm: 976115 1 Tablet(s) PO BID 07/20/2011 Inactive prn Ambien 10 mg Tab RxNorm: 061740 1 Tablet(s) PO QHS 07/20/2011 012 Inactive Singulair 10 mg Tab RxNorm: 030511 1 Tablet(s) PO QD 07/20/201107/19 Inactive Premarin 1.25 mg tablet RxNorm: 443818 2 Tablet(s) PO QD 07/20/2011 0 01/21/2019 Inactive Premarin 1.25 mg tablet RxNorm: 986694 1-2 Tablet(s) PO QD 07/20/20 11 12/16/2011 Inactive Premarin 1.25 mg Tab RxNorm: 307488 1-2 Tablet(s) PO QD 07/06/2011 Inactive alprazolam 0.5 mg Tab RxNorm: 435431 1 Tablet(s) PO BID 06/22/2011 Inactive prn alprazolam 0.5 mg Tab RxNorm: 842756 1 Tablet(s) PO BID 06/22/2011 Inactive prn Premarin 1.25 mg Tab RxNorm: 529926 1 Tablet(s) PO QD m ay do 90 day fill if desired 06/22/2011 07/05/2011 Inactive hydrocodone-acetaminophen 10 mg-325 mg Tab RxNorm: 4961293 1-2 T ablet(s) PO TID 06/22/2011 No Stop Date Active as needed for pain - Previous quantity #240, will start dosing for #180 in April 2011 per Doctor Td. clonidine 0.2 mg Tab RxNorm: 414150 1 Tablet(s) PO TID 05/25/201103/2011 Inactive triamterene-hydrochlorothiazide 75 mg-50 mg Tab RxNorm: 3108 18 1 Tablet(s) PO QD 05/25/2011 09/13/2011 Inactive alprazolam 0.5 mg Tab RxNorm: 797551 1 Tablet(s) PO BID 05/25/2011 Inactive prn hydrocodone-acetaminophen 10 mg-325 mg Tab RxNorm: 3917946 1-2 T ablet(s) PO TID 05/25/2011 No Stop Date Active as needed for pain - Previous quantity #240, will start dosing for #180 in April 2011 per Doctor Td. Robaxin-750 750 mg Tab RxNorm: 295207 2 Tablet(s) PO QHS 05/22/2011 1 Inactive prn spasm hydrocodone-acetaminophen 10 mg-325 mg Tab RxNorm: 1257746 1-2 T ablet(s) PO TID 04/26/2011 No Stop Date Active as needed for pain - Previous quantity #240, will start dosing for #180 in April 2011 per Doctor Td. alprazolam 0.5 mg Tab RxNorm: 716170 1 Tablet(s) PO BID 04/25/2011 Inactive prn Klor-Con 8 mEq Tab RxNorm: 305234 1 Tablet(s) PO QD 03/30/20112010 Inactive Klor-Con 8 mEq Tab RxNorm: 937970 1 Tablet(s) PO QD 03/29/20112010 Inactive hydrocodone-acetaminophen 10 mg-325 mg Tab RxNorm: 1256997 1-2 T ablet(s) PO TID 03/20/2011 04/25/2011 Inactive as needed for pain - Previous quantity #240, will start dosing for #180 in April 2011 per Doctor Td. alprazolam 0.5 mg Tab RxNorm: 505099 1 Tablet(s) PO BID prn 011 03/30/2011 Inactive Ambien 10 mg Tab RxNorm: 994086 1 Tablet(s) PO QHS 03/01/2011 011 Inactive cyclobenzaprine 10 mg Tab RxNorm: 803229 1 Tablet(s) PO TID 011 03/18/2012 Inactive cyclobenzaprine 10 mg Tab RxNorm: 412869 1 Tablet(s) PO TID 011 01/08/2011 Inactive cyclobenzaprine 10 mg Tab RxNorm: 146814 1 Tablet(s) PO TID 011 12/20/2010 Inactive terbinafine 250 mg Tab RxNorm: 962666 1 Tablet(s) PO QD 12/12/2010 Inactive triamterene-hydrochlorothiazide 75 mg-50 mg Tab RxNorm: 3108 18 1 Tablet(s) PO QD 12/07/2010 06/04/2011 Inactive Klor-Con 8 8 mEq Tab RxNorm: 998152 1 Tablet(s) PO QD 12/07/201001/08 Inactive Premarin 1.25 mg Tab RxNorm: 467015 2 Tablet(s) PO QD 12/07/201001/08 Inactive clonidine 0.2 mg Tab RxNorm: 573431 1 Tablet(s) PO TID 12/07/2010 Inactive hydrocodone-acetaminophen 7.5 mg-650 mg Tab RxNorm: 516479 1 Ta blet(s) PO Q4H 12/05/2010 01/21/2019 Inactive hydrocodone-acetaminophen 7.5 mg-650 mg Tab RxNorm: 203448 1 Ta blet(s) PO Q4H 10/26/2010 11/14/2010 Inactive hydrocodone-acetaminophen 7.5 mg-650 mg Tab RxNorm: 772517 1 Ta blet(s) PO Q4H 10/13/2010 10/25/2010 Inactive hydrocodone-acetaminophen 7.5 mg-650 mg Tab RxNorm: 687532 1 Ta blet(s) PO Q4H 09/15/2010 09/12/2010 Inactive alprazolam 0.5 mg Tab RxNorm: 105526 1 Tablet(s) PO BID prn 011 09/12/2010 Inactive terbinafine 250 mg Tab RxNorm: 340591 1 Tablet(s) PO QD 09/05/2010 Inactive hydrocodone-acetaminophen 7.5 mg-650 mg Tab RxNorm: 698678 1 Ta blet(s) PO Q4H 08/29/2010 09/17/2010 Inactive alprazolam 0.5 mg Tab RxNorm: 508983 1 Tablet(s) PO BID prn 010 09/27/2010 Inactive alprazolam 0.5 mg Tab RxNorm: 742296 1 Tablet(s) PO BID prn 010 09/06/2010 Inactive Klor-Con 8 mEq Tab RxNorm: 603657 1 Tablet(s) PO QD 08/08/20102010 Inactive hydrocodone-acetaminophen 7.5 mg-650 mg Tab RxNorm: 214513 1 Ta blet(s) PO Q4H 08/08/2010 08/27/2010 Inactive Ambien 10 mg Tab RxNorm: 842338 1 Tablet(s) PO QHS 08/08/2010 Inactive clonidine 0.2 mg Tab RxNorm: 309402 1 Tablet(s) PO TID 08/08/2010 Inactive Premarin 1.25 mg Tab RxNorm: 598676 2 Tablet(s) PO QD 08/08/201009/12 Inactive Ambien 10 mg Tab RxNorm: 700361 1 Tablet(s) PO QHS 07/18/2010 Inactive alprazolam 0.5 mg Tab RxNorm: 726708 1 Tablet(s) PO BID prn 010 08/07/2010 Inactive hydrocodone-acetaminophen 7.5 mg-650 mg Tab RxNorm: 724061 1 Ta blet(s) PO Q4H 07/12/2010 07/31/2010 Inactive clonidine 0.2 mg Tab RxNorm: 559024 1 Tablet(s) PO TID 06/20/2010 Inactive terbinafine 250 mg Tab RxNorm: 704997 1 Tablet(s) PO QD 05/24/2010 Inactive Clonidine 0.2 mg Tab RxNorm: 074608 1 Tablet(s) PO TID 05/24/201006/2010 Inactive Ambien 10 mg Tab RxNorm: 085955 1 Tablet(s) PO QHS 05/24/2010 010 Inactive alprazolam 0.5 mg Tab RxNorm: 115827 1 Tablet(s) PO BID 05/24/2010 Inactive Klor-Con 8 mEq Tab RxNorm: 255843 1 Tablet(s) PO QD 05/24/20102009 Inactive alprazolam 0.5 mg Tab RxNorm: 376940 2 Tablet(s) PO QD prn 05/24/20 10 07/17/2010 Inactive triamterene-hydrochlorothiazide 75 mg-50 mg Tab RxNorm: 3108 18 1 Tablet(s) PO QD 05/24/2010 11/19/2010 Inactive Ambien 10 mg Tab RxNorm: 389725 1 Tablet(s) PO QHS 05/23/2010 010 Inactive Alprazolam 0.5 mg Tab RxNorm: 104723 2 Tablet(s) PO QD prn 05/23/20 10 05/23/2010 Inactive Premarin 1.25 mg Tab RxNorm: 495986 2 Tablet(s) PO QD 05/19/201007/12 Inactive Hydrocodone-Acetaminophen 7.5 mg-650 mg Tab RxNorm: 873083 1 Ta blet(s) PO Q4H 05/19/2010 03/20/2011 Inactive Prednisone 20 mg Tab RxNorm: 814351 1 Tablet(s) PO BID 05/17/2010 Inactive Prednisone 20 mg Tab RxNorm: 425578 1 Tablet(s) PO BID 05/06/201001/2010 Inactive Premarin 1.25 mg Tab RxNorm: 375595 Tablet(s) PO 2 M-W-F, and 1 Rk-Ss-Byw-Sun 05/05/2010 08/02/2010 Inactive Premarin 1.25 mg Tab RxNorm: 404542 Tablet(s) PO 2 M-W-F, and Dh-Iu-Fgs-Sun 05/04/2010 05/04/2010 Inactive Premarin 1.25 mg Tab RxNorm: 874743 Tablet(s) PO 2 M-W-F, and 1 Se-Cj-Bct-Sun 05/04/2010 05/03/2010 Inactive Prednisone 20 mg Tab RxNorm: 053008 1 Tablet(s) PO BID 04/27/2010 Inactive Alprazolam 0.5 mg Tab RxNorm: 557351 2 Tablet(s) PO QD prn 04/26/20 10 05/22/2010 Inactive Clindamycin 300 mg Cap RxNorm: 083686 2 Capsule(s) PO TID 04/05/2010 04/18/2010 Inactive Terbinafine 250 mg Tab RxNorm: 853947 1 Tablet(s) PO QD 04/04/2010 Inactive Hydrocodone-Acetaminophen 7.5 mg-650 mg Tab RxNorm: 329626 1 Ta blet(s) PO Q4H 03/30/2010 04/18/2010 Inactive Avelox 400 mg Tab RxNorm: 906865 1 Tablet(s) PO QD 03/09/2010 010 Inactive Hydrocodone-Acetaminophen 7.5 mg-650 mg Tab RxNorm: 687403 1 Ta blet(s) PO Q4H 03/08/2010 03/27/2010 Inactive Alprazolam 0.5 mg Tab RxNorm: 527969 2 Tablet(s) PO QD prn 03/08/20 10 04/25/2010 Inactive Klor-Con 8 mEq Tab RxNorm: 513091 1 Tablet(s) PO QD when takes lasi x 03/07/2010 09/29/2019 Inactive Premarin 1.25 mg Tab RxNorm: 415267 1 Tablet(s) PO QD 03/03/201003/11 Inactive Alprazolam 0.5 mg Tab RxNorm: 458787 1 Tablet(s) PO BID PRN 010 No Stop Date Active triamterene-hydrochlorothiazide 75 mg-50 mg Tab RxNorm: 3108 18 1 Tablet(s) PO QD 02/09/2010 02/03/2011 Inactive Hydrocodone-Acetaminophen 10 mg-750 mg Tab RxNorm: 782974 1 Tablet(s) PO Q4H PRN 02/09/2010 03/20/2011 Inactive Clonidine 0.2 mg Tab RxNorm: 413756 1 Tablet(s) PO TID 01/13/201009/2009 Inactive Alprazolam 0.5 mg Tab RxNorm: 350647 1 Tablet(s) PO BID PRN 010 01/12/2010 Inactive Hydrocodone-Acetaminophen 10 mg-750 mg Tab RxNorm: 729661 1 Tablet(s) PO Q4H PRN 01/13/2010 01/12/2010 Inactive ANGELIQ 1 mg-0.5 mg Tab RxNorm: 9389771 1 Tablet(s) PO QD 12/27/2009 01/23/2010 Inactive Lasix 40 mg Tab RxNorm: 144919 1 Tablet(s) PO QAM 12/14/2009 06/11/20 10 Inactive Vitamin B12 1000mcg Tablet RxNorm: 1 Tablet(s) PO QD No Start Date Active cyclobenzaprine 10 mg tablet RxNorm: 183539 1 Tablet(s) PO TID as needed DO NOT USE WITH BACLOFEN No Start Date Active Vitamin D 5,000 unit Tab RxNorm: 1 Tablet(s) PO QD No Start Date Active vitamin E (dl, acetate) 400 unit Cap RxNorm: 455033 1 Capsule(s ) PO QD No Start Date Active Benadryl 25 mg Cap RxNorm: 9712920 Capsule(s) PO PRN No Start Date Inactive amitriptyline 100 mg tablet RxNorm: 228233 1 Tablet(s) PO QHS No St art Date 11/27/2016 Inactive Zithromax Z-Dustin 250 mg tablet RxNorm: 088308 Tablet(s) PO as di rected No Start Date 07/22/2013 Inactive Klor-Con 8 mEq tablet,extended release RxNorm: 333196 1 Tablet( s) PO BID No Start Date 07/28/2012 Inactive scopolamine 1.5 mg 72 hr Transderm Patch RxNorm: 116963 Application TD Q72H for motion sickness No Start Date 05/25/2013 Inactive Klonopin 1 mg tablet RxNorm: 296379 1-2 Tablet(s) PO QHS as nee ded for sleep No Start Date 06/20/2015 Inactive Klor-Con M20 mEq tablet,extended release RxNorm: 115433 2 Tablet(s) PO BID to use with lasix No Start Date 11/11/2013 Inactive Bystolic 5 mg tablet RxNorm: 877763 1 Tablet(s) PO QD No Start Date 1 Inactive Bystolic 10 mg tablet RxNorm: 879905 1 Tablet(s) PO BID No Start Da te 07/06/2015 Inactive Premarin 1.25 mg Tab RxNorm: 547636 Tablet(s) PO 2 M-W-F, and 1 Di-Qv-Jlv-Sun No Start Date 05/03/2010 Inactive baclofen 20 mg tablet RxNorm: 406873 1 Tablet(s) PO TID as needed for muscle spasm No Start Date 07/22/2015 Inactive hydrocodone-acetaminophen 7.5 mg-650 mg Tab RxNorm: 950560 1 Tablet(s) PO Q4H as needed for pain No Start Date 03/20/2011 Inactive albuterol sulfate 1.25 mg/3 mL Neb Solution RxNorm: 644947 1 Unit Dose INH Q4H 2boxes No Start Date 09/06/2015 Inactive Butrans 20 mcg/hour Transderm Patch RxNorm: 411191 1 TD WEEKLY apply to skin weekly after removing previous. No Start Date 07/22/2013 Inactive Medrol (Dustin) 4 mg tablets in a dose pack RxNorm: 322991 Tablet(s) PO As Directed No Start Date 07/30/2016 Inactive hydrocodone-acetaminophen 10 mg-325 mg Tab RxNorm: 7906376 1-2 Tablet(s) PO TID as needed for pain No Start Date 03/19/2011 Inactive Klonopin 1 mg tablet RxNorm: 887521 1 Tablet(s) PO QHS No Start Date 02/28/2016 Inactive honey topical RxNorm: topical No Start Date 06/16/2018 Inactive Clonidine 0.2 mg Tab RxNorm: 200259 1 Tablet(s) PO TID No Start Date 01/12/2010 Inactive ketorolac 10 mg tablet RxNorm: 793046 1 Tablet(s) PO Q8H No Start D ate 03/18/2012 Inactive as needed for headache Singulair 10 mg Tab RxNorm: 161939 1 Tablet(s) PO QD No Start Date Inactive Premarin 1.25 mg Tab RxNorm: 132373 1 Tablet(s) PO QD No Start Date 1 Inactive Flonase 50 mcg/Actuation Nasal [place] RxNorm: 6118651 1 [place] [facility] BID No Start Date 03/18/2012 Inactive Terbinafine 250 mg Tab RxNorm: 986309 1 Tablet(s) PO QD No Start Da te 04/03/2010 Inactive Fexofenadine 180 mg Tab RxNorm: 9579771 1 Tablet(s) PO QD No Start Date 09/06/2015 Inactive baclofen 20 mg tablet RxNorm: 482140 1 Tablet(s) PO TID as needed N o Start Date 05/25/2014 Inactive Diovan 160 mg Tab RxNorm: 152026 1 Tablet(s) PO QD No Start Date 09/12 Inactive mupirocin 2 % topical ointment RxNorm: 599102 1 Application TOP QID No Start Date 04/25/2016 Inactive ZOFRAN ODT 4 mg Tab, Rapid Dissolve RxNorm: 560205 1 Tablet(s) PO Q4H No Start Date 03/18/2012 Inactive as needed for nausea and vomiting Alprazolam 0.5 mg Tab RxNorm: 432304 1 Tablet(s) PO BID PRN No Star t Date 01/12/2010 Inactive cyclobenzaprine 10 mg tablet RxNorm: 856850 1 Tablet(s) PO TID as needed for muscle spasm No Start Date 10/08/2017 Inactive Albuterol 0.083% Aerosol Solution RxNorm: 1 Appl ication INH Q4H Use one ampule every 4 hrs with nebulizer as needed for shortness of breath. No Start Date 10/09/2010 Inactive lorazepam 1 mg tablet RxNorm: 356956 1 1/2 Tablet(s) PO QHS No Star t Date 02/02/2016 Inactive Melatonin 3 mg Tab RxNorm: 855006 Tablet(s) PO PRN No Start Date 07/11 Inactive Medrol (Dustin) 4 mg Tabs in a Dose Pack RxNorm: 869681 Tablet(s) PO N o Start Date 11/28/2010 Inactive lorazepam 1 mg tablet RxNorm: 097118 1 Tablet(s) PO QHS as need ed for sleep No Start Date 01/30/2016 Inactive hydrocodone-acetaminophen 10 mg-325 mg Tab RxNorm: 4545679 1-2 Tablet(s) PO QID as needed for severe pain No Start Date 03/24/2012 Inactive celecoxib 200 mg capsule RxNorm: 425362 1 Capsule(s) PO BID No Star t Date 06/26/2019 Inactive amlodipine 5 mg-benazepril 20 mg capsule RxNorm: 222245 1 Capsu le(s) PO QD No Start Date 04/10/2017 Inactive Bystolic 20 mg tablet RxNorm: 052385 1/2 Tablet(s) PO QAM No Start Date 01/23/2016 Inactive Bystolic 20 mg tablet RxNorm: 726732 1 Tablet(s) PO QAM No Start Da te 04/25/2016 Inactive Ambien 10 mg Tab RxNorm: 397474 1 Tablet(s) PO QHS No Start Date 05/11 Inactive Klor-Con 8 mEq Tab RxNorm: 060176 1 Tablet(s) PO QD when takes lasix No Start Date 03/06/2010 Inactive aspirin 81 mg tablet RxNorm: 946679 1 Tablet(s) PO QD No Start Date 0 01/29/2018 Inactive hydrocodone-acetaminophen 10 mg-325 mg Tab RxNorm: 8213345 1-2 T ablet(s) PO QID No Start Date 01/10/2012 Inactive Bystolic 10 mg tablet RxNorm: 571849 1 Tablet(s) PO QAM take one daily in the morning. No Start Date 05/28/2013 Inactive nystatin 100,000 unit/mL Oral Susp RxNorm: 176974 5 Milliliter( s) PO QID No Start Date 03/18/2012 Inactive swish and spit scopolamine 1.5 mg 72 hr Transderm Patch RxNorm: 373892 1 Unit Dose TD Q72H for motion sickness No Start Date 12/23/2013 Inactive Hydrocodone-Acetaminophen 10 mg-750 mg Tab RxNorm: 774039 1 Tablet(s) PO Q4H PRN No Start Date 01/12/2010 Inactive Soma 350 mg tablet RxNorm: 514684 1 Tablet(s) PO TID as needed for spasm No Start Date 01/12/2013 Inactive baclofen 10 mg tablet RxNorm: 506382 1 Tablet(s) PO TID as needed for muscle spasm No Start Date 09/18/2019 Inactive Soma 350 mg Tab RxNorm: 425624 1 Tablet(s) PO TID for spasm No Star t Date 01/31/2012 Inactive Co Q-10 400 mg capsule RxNorm: 282616 1 Capsule(s) PO QD No Start D ate 01/21/2019 Inactive nystatin 100,000 unit/gram topical cream RxNorm: 107916 Applica tion TOP BID No Start Date 03/22/2015 Inactive Exforge 5 mg-160 mg Tab RxNorm: 677660 1 Tablet(s) PO QD No Start D ate 10/09/2010 Inactive Hydrocodone-Acetaminophen 7.5 mg-650 mg Tab RxNorm: 772908 1 Ta blet(s) PO Q4H No Start Date 03/07/2010 Inactive Robaxin-750 750 mg Tab RxNorm: 727466 1-2 Tablet(s) PO TID prn spasm No Start Date 05/21/2011 Inactive amlodipine 5 mg tablet RxNorm: 438587 1 Tablet(s) PO QHS No Start D ate 09/29/2015 Inactive oxycodone-acetaminophen 10 mg-325 mg tablet RxNorm: 6618191 1-2 Tablet(s) PO Q6H No Start Date 06/16/2018 Inactive Triamterene-Hydrochlorothiazide 75 mg-50 mg Tab RxNorm: 3108 18 1 Tablet(s) PO QD No Start Date 02/08/2010 Inactive Alprazolam 0.5 mg Tab RxNorm: 446036 2 Tablet(s) PO QD prn No Start Date 03/07/2010 Inactive Bystolic 20 mg tablet RxNorm: 743195 1 Tablet(s) PO QAM No Start Da te 08/17/2015 Inactive ketorolac 10 mg tablet RxNorm: 030891 1 Tablet(s) PO QID prn he adache No Start Date 07/17/2012 Inactive acyclovir 800 mg Tab RxNorm: 588959 1 Tablet(s) PO BID No Start Date 03/18/2012 Inactive duloxetine 60 mg capsule,delayed release RxNorm: 581332 1 Capsu le(s) PO QD No Start Date 09/29/2015 Inactive Norvasc 5 mg tablet RxNorm: 617085 1 Tablet(s) PO QHS No Start Date 1 10/18/2014 Inactive promethazine 25 mg tablet RxNorm: 810604 1 Tablet(s) PO Q8H use sparingly No Start Date 07/22/2013 Inactive alprazolam 0.5 mg tablet RxNorm: 279316 3 Tablet(s) PO QHS No Start Date 06/06/2015 Inactive Lunesta 3 mg tablet RxNorm: 056883 1 Tablet(s) PO QHS No Start Date 0 09/20/2017 Inactive hydrocodone-acetaminophen 10 mg-325 mg Tab RxNorm: 3391709 1-2 Tablet(s) PO TID as needed for pain No Start Date 12/10/2011 Inactive Coricidin HBP Cough & Cold 4 mg-30 mg Tab RxNorm: 6943764 Tablet (s) PO PRN No Start Date 10/09/2010 Inactive Bactroban 2 % Ointment RxNorm: 051260 Application TOP QID to so res No Start Date 02/22/2012 Inactive Flonase 50 mcg/actuation Nasal [place] RxNorm: 427317 2 [place] QHS No Start Date 03/03/2014 Inactive Medication Administered No Medication Administered data Immunizations Vaccine Codes Date Status Tetanus, Diptheria, Pertussis CVX: 115 02/27/2014 Results Observation Observation Code Item Item Code Result Date S vic Location COMPREHENSIVE METABOLIC 25211 AST 15 U/L 2019 Unknown COMPREHENSIVE METABOLIC 85812 ALT 13 U/L 2019 Unknown COMPREH[facility] MET[facility]OL[facility] 75969 BUN 12 mg/dL 2019 Unknown COMPREHENS[facility] METABOLIC 33198 ALBUMIN 3.9 g/dL 2019 Unknown COMPREHENSIVE METABOLIC 11648 CHLORIDE 97 mmol/L 2019 Unknown COMPREHENSIVE METABOLIC 23756 Bili Total 0.4 mg/dL 09/29 Unknown COMPREHENSIVE METABOLIC 99566 ALK PHOS 130 U/L 2019 Unknown COMPREHENSIVE METABOLIC 72766 SODIUM 136 mmol/L 09/29 Unknown COMPREHENSIVE METABOLIC 53106 CREATININE 0.92 mg/dL 09/11 Unknown COMPREHENSIVE METABOLIC 03042 CALCIUM 9.1 mg/dL 2019 Unknown COMPREHENSIVE METABOLIC 75913 POTASSIUM 4.4 mmol/L 09/29 Unknown COMPREHENSIVE METABOLIC 76599 Total Protein 6.2 g/dL Unknown COMPREHENSIVE METABOLIC 14053 Glucose 391 mg/dL 2019 Unknown COMPREHENSIVE METABOLIC 83348 Bicarbonate 30 mmol/L 09/11 Unknown COMPREHENSIVE METABOLIC 86249 AGAP 9 mmol/L 2019 Unknown MEAN GLUC 0013837 Calc Mean Gluc 332 mg/dL 09/29/2019 Unkn own COMPLETE BLOOD COUNT [id number] WBC 7.0 10e9/L 09/29/19 Unknown COMPLETE BLOOD COUNT [id number] RBC 4.69 10e12/L 2019 Unknown COMPLETE BLOOD COUNT [id number] HEMOGLOBIN 14.6 g/dL 09/29/19 Unknown COMPLETE BLOOD COUNT [id number] HEMATOCRIT 45.2 % 09/29/19 Unknown COMPLETE BLOOD COUNT [id number] MCV 96.4 fL 0 Unknown COMPLETE BLOOD COUNT [id number] MCH 31.1 pg 0 Unknown COMPLETE BLOOD COUNT 9332108 MCHC 32.3 g/dL 0 Unknown COMPLETE BLOOD COUNT [id number] PLATELET COUNT 209 10e9/L Unknown COMPLETE BLOOD COUNT 8120200 Mean Plt Volume 9.8 fL Unknown COMPLETE BLOOD COUNT [id number] Neut Auto 48.1 % 0 Unknown COMPLETE BLOOD COUNT [id number] Lymph Auto 36.5 % 09/29/19 Unknown COMPLETE BLOOD COUNT 1127139 [place] Auto 8.6 % 0 Unknown COMPLETE BLOOD COUNT [id number] RDW 13.4 % 0 Unknown COMPLETE BLOOD COUNT [id number] Eos Auto 6.5 % 0 Unknown COMPLETE BLOOD COUNT [id number] Baso Auto 0.3 % 0 Unknown COMPLETE BLOOD COUNT [id number] Neutrophil Abs 3.37 10e9/L Unknown COMPLETE BLOOD COUNT [id number] Lymphocyte Abs 2.56 10e9/L Unknown COMPLETE BLOOD COUNT [id number] Monocyte Abs 0.60 10e9/L 09/11 Unknown COMPLETE BLOOD COUNT [id number] Eosinophil Abs 0.46 10e9/L Unknown COMPLETE BLOOD COUNT [id number] RDW-SD 45.9 fL 0 Unknown COMPLETE BLOOD COUNT [id number] Basophil Abs 0.02 10e9/L 09/11 Unknown LIPID GROUP 08417 Cholesterol 248 mg/dL 09/29/2019 Unkno wn LIPID GROUP 67409 Triglyceride 898 mg/dL 09/29/2019 Unkn own LIPID GROUP 13759 HDL CHOLESTEROL 41 mg/dL 09/29/2019 U nknown LIPID GROUP 71973 Chol/HDL Ratio 6.05 ratio 09/29/2019 U nknown LIPID GROUP 79229 NON-HDL Chol 207 mg/dL 09/29/2019 Unkn own LIPID GROUP 81208 LDL Cholesterol N/A Trig >400 020 Unknown GLYCOSYLATED HEMOGLOBIN TEST 56321 Hgb A1c 71133-2 13.2 % 0 09/29/2019 Unknown FREE T4 18856 T4 Free 0.75 ng/dL 09/29/2019 Unknown GFR CALC 8236677 GFR Non Afr Amr >60 mL/min 09/29/2019 Un known GFR CALC 2933377 GFR Afr Amr >60 mL/min 09/29/2019 Unknow n THYROID STIMULATING HORMONE 07014 TSH 4.245 uIU/mL 09/29/2019 Unknown COMPLETE BLOOD COUNT [id number] WBC 10.7 10e9/L 018 Unknown COMPLETE BLOOD COUNT [id number] RBC 4.59 10e12/L 2017 Unknown COMPLETE BLOOD COUNT [id number] HEMOGLOBIN 14.8 g/dL 12/11/19 18 Unknown COMPLETE BLOOD COUNT 6228001 HEMATOCRIT 44.9 % 12/11/19 18 Unknown COMPLETE BLOOD COUNT [id number] MCV 97.8 fL 8 Unknown COMPLETE BLOOD COUNT 5973861 MCH 32.2 pg 8 Unknown COMPLETE BLOOD COUNT 5491900 MCHC 33.0 g/dL 8 Unknown COMPLETE BLOOD COUNT 7557734 PLATELET COUNT 261 10e9/L 10/2017 Unknown COMPLETE BLOOD COUNT 7815602 Mean Plt Volume 9.5 fL 10/2017 Unknown COMPLETE BLOOD COUNT 5729536 Neut Auto 59.9 % 8 Unknown COMPLETE BLOOD COUNT [id number] Lymph Auto 27.4 % 12/11/19 18 Unknown COMPLETE BLOOD COUNT 0675315 [place] Auto 8.2 % 8 Unknown COMPLETE BLOOD COUNT 2521410 RDW 13.3 % 8 Unknown COMPLETE BLOOD COUNT 0101805 Eos Auto 4.1 % 8 Unknown COMPLETE BLOOD COUNT 4292188 Baso Auto 0.4 % 8 Unknown COMPLETE BLOOD COUNT 6656647 Neutrophil Abs 6.41 10e9/L Unknown COMPLETE BLOOD COUNT [id number] Lymphocyte Abs 2.93 10e9/L Unknown COMPLETE BLOOD COUNT [id number] Monocyte Abs 0.88 10e9/L 10/2017 Unknown COMPLETE BLOOD COUNT 1698530 Eosinophil Abs 0.44 10e9/L Unknown COMPLETE BLOOD COUNT 1088650 RDW-SD 46.2 fL 8 Unknown COMPLETE BLOOD COUNT [id number] Basophil Abs 0.04 10e9/L 10/2017 Unknown THYROID STIMULATING HORMONE 64300 TSH 4.015 uIU/mL 12/10/2017 Unknown COMPREHENSIVE METABOLIC 38883 AST 25 U/L 2017 Unknown COMPREHENSIVE METABOLIC 12883 ALT 17 U/L 2017 Unknown COMPREHENSIVE METABOLIC 66404 BUN 19 mg/dL 2017 Unknown COMPREHENSIVE METABOLIC 79911 ALBUMIN 4.0 g/dL 2017 Unknown COMPREHENSIVE METABOLIC 17638 CHLORIDE 91 mmol/L 2017 Unknown COMPREHENSIVE METABOLIC 88343 Bili Total 0.5 mg/dL 12/10 Unknown COMPREHENSIVE METABOLIC 77640 ALK PHOS 75 U/L 2017 Unknown COMPREHENSIVE METABOLIC 04132 SODIUM 136 mmol/L 12/10 Unknown COMPREHENSIVE METABOLIC 85657 CREATININE 1.05 mg/dL 10/2017 Unknown COMPREHENSIVE METABOLIC 15032 CALCIUM 8.9 mg/dL 2017 Unknown COMPREHENSIVE METABOLIC 87034 POTASSIUM 3.4 mmol/L 12/10 Unknown COMPREHENSIVE METABOLIC 28490 Total Protein 6.5 g/dL Unknown COMPREHENSIVE METABOLIC 39605 Glucose 138 mg/dL 2017 Unknown COMPREHENSIVE METABOLIC 89748 Bicarbonate 35 mmol/L 10/2017 Unknown COMPREHENSIVE METABOLIC 40506 AGAP 10 mmol/L 2017 Unknown MEAN GLUC 4689671 Calc Mean Gluc 171 mg/dL 12/10/2017 Unkn own LIPID GROUP 85373 Cholesterol 204 mg/dL 12/10/2017 Unkno wn LIPID GROUP 05419 Triglyceride 411 mg/dL 12/10/2017 Unkn own LIPID GROUP 18940 HDL CHOLESTEROL 50 mg/dL 12/10/2017 U nknown LIPID GROUP 12851 Chol/HDL Ratio 4.08 ratio 12/10/2017 U nknown LIPID GROUP 98987 NON-HDL Chol 154 mg/dL 12/10/2017 Unkn own LIPID GROUP 14705 LDL Cholesterol N/A Trig >400 018 Unknown GLYCOSYLATED HEMOGLOBIN TEST 90049 Hgb A1c 91526-8 7.6 % 0 12/10/2017 Unknown FREE T4 61807 T4 Free 1.40 ng/dL 12/10/2017 Unknown GFR CALC 3052841 GFR Non Afr Amr 55 mL/min 12/10/2017 Unk nown GFR CALC 1878170 GFR Afr Amr >60 mL/min 12/10/2017 Unknow n GFR CALC 4591367 GFR Non Afr Amr 48 mL/min 06/28/2017 Unk nown GFR CALC 9719702 GFR Afr Amr 59 mL/min 06/28/2017 Unknown COMPREHENSIVE METABOLIC 66729 AST 32 U/L 2016 Unknown COMPREHENSIVE METABOLIC 72859 ALT 22 U/L 2016 Unknown COMPREHENSIVE METABOLIC 06120 BUN 23 mg/dL 2016 Unknown COMPREHENSIVE METABOLIC 70872 ALBUMIN 4.7 g/dL 2016 Unknown COMPREHENSIVE METABOLIC 85517 CHLORIDE 89 mmol/L 2016 Unknown COMPREHENSIVE METABOLIC 92449 Bili Total 0.5 mg/dL 06/28 Unknown COMPREHENSIVE METABOLIC 29400 ALK PHOS 90 U/L 2016 Unknown COMPREHENSIVE METABOLIC 98151 SODIUM 135 mmol/L 06/28 Unknown COMPREHENSIVE METABOLIC 73728 CREATININE 1.18 mg/dL 06/10 Unknown COMPREHENSIVE METABOLIC 96419 CALCIUM 9.7 mg/dL 2016 Unknown COMPREHENSIVE METABOLIC 91521 POTASSIUM 3.5 mmol/L 06/28 Unknown COMPREHENSIVE METABOLIC 46206 Total Protein 7.7 g/dL Unknown COMPREHENSIVE METABOLIC 47276 Glucose 129 mg/dL 2016 Unknown COMPREHENSIVE METABOLIC 70522 Bicarbonate 34 mmol/L 06/10 Unknown COMPREHENSIVE METABOLIC 10834 AGAP 12 mmol/L 2016 Unknown LIPID GROUP 77034 HDL TEST 64 MG/DL 08/27/2014 Unknown LIPID GROUP 66256 TRIG 222 MG/DL 08/27/2014 Unknown LIPID GROUP 00749 TEST LDL 209 MG/DL 08/27/2014 Unknown LIPID GROUP 32041 CHOL 317 MG/DL 08/27/2014 Unknown LIPID GROUP 31047 RCHOL/HDL 4.95 RATIO 08/27/2014 Unknow n LIPID GROUP 06861 NON-HDL CH 253 MG/DL 08/27/2014 Unknow n GFR CALC 5980721 GFR AA >60 ML/MIN 08/27/2014 Unknown GFR CALC 8858547 GFR NON-AA >60 ML/MIN 08/27/2014 Unknown COMPLETE BLOOD COUNT 6568016 WBC 7.0 10e9/L 08/27/20 14 Unknown COMPLETE BLOOD COUNT [id number] RBC 4.98 10e12/L 2013 Unknown COMPLETE BLOOD COUNT 8237733 HGB 15.6 g/dL 4 Unknown COMPLETE BLOOD COUNT 7870344 HCT DET 46.5 % 4 Unknown COMPLETE BLOOD COUNT 6803567 MCV 93.4 fL 4 Unknown COMPLETE BLOOD COUNT 3855962 MCH 31.3 pg 4 Unknown COMPLETE BLOOD COUNT 4289095 MCHC 33.5 g/dL 4 Unknown COMPLETE BLOOD COUNT 7976395 PLT 309 10e9/L 08/27/20 14 Unknown COMPLETE BLOOD COUNT 8537747 MPV 9.6 fL 4 Unknown COMPLETE BLOOD COUNT 5467327 CADEN % 57.2 % 4 Unknown COMPLETE BLOOD COUNT 5469308 LY % 33.2 % 4 Unknown COMPLETE BLOOD COUNT 4040545 MON % 7.3 % 4 Unknown COMPLETE BLOOD COUNT 7197331 EOS % 2.0 % 4 Unknown COMPLETE BLOOD COUNT 6568183 BASO % 0.3 % 4 Unknown COMPLETE BLOOD COUNT 4171399 RDW 13.7 % 4 Unknown COMPLETE BLOOD COUNT [id number] ABS CADEN 4.00 10e9/L 014 Unknown COMPLETE BLOOD COUNT [id number] ABS LYMPH 2.32 10e9/L 014 Unknown COMPLETE BLOOD COUNT 1493871 ABS MONO 0.51 10e9/L 014 Unknown COMPLETE BLOOD COUNT [id number] ABS EOS 0.14 10e9/L 014 Unknown COMPLETE BLOOD COUNT [id number] ABS BASO 0.02 10e9/L 014 Unknown COMPLETE BLOOD COUNT 9218815 RDW-SD 45.1 fL 4 Unknown COMPREHENSIVE METABOLIC 61247 AST 13 U/L 2013 Unknown COMPREHENSIVE METABOLIC 11675 ALT 11 IU/L 2013 Unknown COMPREHENSIVE METABOLIC 47016 BUN 23 MG/DL 2013 Unknown COMPREHENSIVE METABOLIC 64039 ALBUMIN 4.4 GM/DL 2013 Unknown COMPREHENSIVE METABOLIC 95645 CHLORIDE 99 MMOL/L 2013 Unknown COMPREHENSIVE METABOLIC 61446 BILI TOT 0.5 MG/DL 2013 Unknown COMPREHENSIVE METABOLIC 38491 ALK PHOS 56 U/L 2013 Unknown COMPREHENSIVE METABOLIC 57041 SODIUM 138 MMOL/L 08/27 Unknown COMPREHENSIVE METABOLIC 86783 CREATININE 0.95 MG/DL 08/10 Unknown COMPREHENSIVE METABOLIC 52631 CALCIUM 9.8 MG/DL 2013 Unknown COMPREHENSIVE METABOLIC 27811 POTASSIUM 3.5 MMOL/L 08/27 Unknown COMPREHENSIVE METABOLIC 99587 PROT TOT 6.8 GM/DL 2013 Unknown COMPREHENSIVE METABOLIC 02725 Glucose 90 MG/DL 2013 Unknown COMPREHENSIVE METABOLIC 73893 BICARB 34 MMOL/L 2013 Unknown COMPREHENSIVE METABOLIC 20897 ANION GAP 5 MEQ/L 2013 Unknown LIPASE 76647 LIPASE 11 IU/L 07/21/2014 Unknown AMYLASE 90545 AMYLASE 39 IU/L 07/21/2014 Unknown HEMOGLOBIN A1C (GLYCOSYLATED) 2822706 A1C [facility] 47457-8 6.2 % 03/05/2013 Unknown THYROID STIMULATING HORMONE 19100 TSH 6.986 uIU/ML 03/05/2013 Unknown COMPLETE BLOOD COUNT 6497963 WBC 12.7 10e9/L 013 Unknown COMPLETE BLOOD COUNT [id number] RBC 4.53 10e12/L 2012 Unknown COMPLETE BLOOD COUNT 3788273 HGB 14.7 g/dL 3 Unknown COMPLETE BLOOD COUNT 6241772 HCT DET 43.1 % 3 Unknown COMPLETE BLOOD COUNT 3489598 MCV 95.1 fL 3 Unknown COMPLETE BLOOD COUNT 3899818 MCH 32.5 pg 3 Unknown COMPLETE BLOOD COUNT 4086022 MCHC 34.1 g/dL 3 Unknown COMPLETE BLOOD COUNT [id number] PLT 346 10e9/L 03/05/20 13 Unknown COMPLETE BLOOD COUNT 1285518 MPV 9.5 fL 3 Unknown COMPLETE BLOOD COUNT 1440075 CADEN % 67.6 % 3 Unknown COMPLETE BLOOD COUNT 9564546 LY % 22.1 % 3 Unknown COMPLETE BLOOD COUNT 5376604 MON % 6.6 % 3 Unknown COMPLETE BLOOD COUNT 7548429 EOS % 3.3 % 3 Unknown COMPLETE BLOOD COUNT 6909179 BASO % 0.4 % 3 Unknown COMPLETE BLOOD COUNT 3207775 RDW 14.0 % 3 Unknown COMPLETE BLOOD COUNT 0294306 ABS CADEN 8.59 10e9/L 013 Unknown COMPLETE BLOOD COUNT 0207758 ABS LYMPH 2.81 10e9/L 013 Unknown COMPLETE BLOOD COUNT [id number] ABS MONO 0.84 10e9/L 013 Unknown COMPLETE BLOOD COUNT 0124010 ABS EOS 0.42 10e9/L 013 Unknown COMPLETE BLOOD COUNT [id number] ABS BASO 0.05 10e9/L 013 Unknown COMPLETE BLOOD COUNT 4377729 RDW-SD 46.0 fL 3 Unknown FREE T4 51747 FREE T4 1.14 NG/DL 03/05/2013 Unknown COMPREHENSIVE METABOLIC 57415 AST 17 U/L 2012 Unknown COMPREHENSIVE METABOLIC 21087 ALT 12 IU/L 2012 Unknown COMPREHENSIVE METABOLIC 04141 BUN 24 MG/DL 2012 Unknown COMPREHENSIVE METABOLIC 80433 ALBUMIN 4.2 GM/DL 2012 Unknown COMPREHENSIVE METABOLIC 06283 CHLORIDE 93 MMOL/L 2012 Unknown COMPREHENSIVE METABOLIC 23229 BILI TOT 0.5 MG/DL 2012 Unknown COMPREHENSIVE METABOLIC 58510 ALK PHOS 75 U/L 2012 Unknown COMPREHENSIVE METABOLIC 05355 SODIUM 141 MMOL/L 03/05 Unknown COMPREHENSIVE METABOLIC 27113 CREATININE 1.36 MG/DL 02/09 Unknown COMPREHENSIVE METABOLIC 14749 CALCIUM 9.2 MG/DL 2012 Unknown COMPREHENSIVE METABOLIC 50212 POTASSIUM 3.1 MMOL/L 03/05 Unknown COMPREHENSIVE METABOLIC 10766 PROT TOT 6.9 GM/DL 2012 Unknown COMPREHENSIVE METABOLIC 03887 Glucose 123 MG/DL 2012 Unknown COMPREHENSIVE METABOLIC 11184 BICARB 36 MMOL/L 2012 Unknown COMPREHENSIVE METABOLIC 17997 ANION GAP 12 MEQ/L 2012 Unknown GFR CALC 0793320 GFR AA 51.0L ML/MIN 03/05/2013 Unknow n GFR CALC 7318968 GFR NON-AA 42.0L ML/MIN 03/05/2013 Unkno wn COMPREHENSIVE METABOLIC 14392 AST 14 U/L 2012 Unknown COMPREHENSIVE METABOLIC 20796 ALT 11 IU/L 2012 Unknown COMPREHENSIVE METABOLIC 20904 BUN 16 MG/DL 2012 Unknown COMPREHENSIVE METABOLIC 16083 ALBUMIN 4.2 GM/DL 2012 Unknown COMPREHENSIVE METABOLIC 47667 CHLORIDE 98 MMOL/L 2012 Unknown COMPREHENSIVE METABOLIC 97531 BILI TOT 0.4 MG/DL 2012 Unknown COMPREHENSIVE METABOLIC 54539 ALK PHOS 77 U/L 2012 Unknown COMPREHENSIVE METABOLIC 15031 SODIUM 139 MMOL/L 09/25 Unknown COMPREHENSIVE METABOLIC 97062 CREATININE 0.86 MG/DL 09/10 Unknown COMPREHENSIVE METABOLIC 82088 CALCIUM 9.5 MG/DL 2012 Unknown COMPREHENSIVE METABOLIC 11553 POTASSIUM 3.8 MMOL/L 09/25 Unknown COMPREHENSIVE METABOLIC 70592 PROT TOT 6.8 GM/DL 2012 Unknown COMPREHENSIVE METABOLIC 52459 Glucose 91 MG/DL 2012 Unknown COMPREHENSIVE METABOLIC 93903 BICARB 32 MMOL/L 2012 Unknown COMPREHENSIVE METABOLIC 51631 ANION GAP 9 MEQ/L 2012 Unknown FREE T4 15487 FREE T4 0.98 NG/DL 09/25/2012 Unknown THYROID STIMULATING HORMONE 43896 TSH 1.736 uIU/ML 09/25/2012 Unknown C-REACTIVE PROTEIN (CRP) QUANT 28124 CRP 2.3 MG/DL 09/25/2012 Unknown COMPLETE BLOOD COUNT [id number] WBC 11.9 10e9/L 013 Unknown COMPLETE BLOOD COUNT [id number] RBC 4.87 10e12/L 2012 Unknown COMPLETE BLOOD COUNT 0300414 HGB 15.1 g/dL 3 Unknown COMPLETE BLOOD COUNT 1320821 HCT DET 44.8 % 3 Unknown COMPLETE BLOOD COUNT 2323894 MCV 92.0 fL 3 Unknown COMPLETE BLOOD COUNT 0271201 MCH 31.0 pg 3 Unknown COMPLETE BLOOD COUNT 0788717 MCHC 33.7 g/dL 3 Unknown COMPLETE BLOOD COUNT 9667035 PLT 343 10e9/L 09/25/19 13 Unknown COMPLETE BLOOD COUNT 8033150 MPV 9.0 fL 3 Unknown COMPLETE BLOOD COUNT 5554865 CADEN % 68.2 % 3 Unknown COMPLETE BLOOD COUNT 8076161 LY % 22.4 % 3 Unknown COMPLETE BLOOD COUNT 8846987 MON % 6.4 % 3 Unknown COMPLETE BLOOD COUNT 6152036 EOS % 2.7 % 3 Unknown COMPLETE BLOOD COUNT 7481098 BASO % 0.3 % 3 Unknown COMPLETE BLOOD COUNT 6088491 RDW 13.8 % 3 Unknown COMPLETE BLOOD COUNT 7790989 ABS CADEN 8.12 10e9/L 013 Unknown COMPLETE BLOOD COUNT 9102407 ABS LYMPH 2.67 10e9/L 013 Unknown COMPLETE BLOOD COUNT 5491668 ABS MONO 0.76 10e9/L 013 Unknown COMPLETE BLOOD COUNT [id number] ABS EOS 0.32 10e9/L 013 Unknown COMPLETE BLOOD COUNT [id number] ABS BASO 0.04 10e9/L 013 Unknown COMPLETE BLOOD COUNT 1189850 RDW-SD 45.6 fL 3 Unknown GFR CALC 4865342 GFR AA >60 ML/MIN 09/25/2012 Unknown GFR CALC 4617452 GFR NON-AA >60 ML/MIN 09/25/2012 Unknown ERYTHROCYTE SEDIMENTATION RATE 51893 ESR 19 MM/HR 05/06/2012 Unknown VITAMIN B 12 FOLIC ACID 28288|84599 VIT B 12 922 PG/ML 04/11 Unknown VITAMIN B 12 FOLIC ACID 57118|38347 FOLIC ACID 13.6 NG/ML Unknown URIC ACID 84235 URIC ACID 7.8 MG/DL 05/06/2012 Unknown COMPLETE BLOOD COUNT 42555 WBC 11.9 10e9/L 012 Unknown COMPLETE BLOOD COUNT 84574 RBC 5.30 10e12/L 2011 Unknown COMPLETE BLOOD COUNT 38956 HGB 16.6 g/dL 2 Unknown COMPLETE BLOOD COUNT 34517 HCT DET 47.2 % 2 Unknown COMPLETE BLOOD COUNT 74743 MCV 89.1 fL 2 Unknown COMPLETE BLOOD COUNT 95204 MCH 31.3 pg 2 Unknown COMPLETE BLOOD COUNT 86817 MCHC 35.2 g/dL 2 Unknown COMPLETE BLOOD COUNT 69135 PLT 362 10e9/L 05/06/20 12 Unknown COMPLETE BLOOD COUNT 05986 MPV 9.4 fL 2 Unknown COMPLETE BLOOD COUNT 47814 CADEN % 68.2 % 2 Unknown COMPLETE BLOOD COUNT 78049 LY % 22.0 % 2 Unknown COMPLETE BLOOD COUNT 43456 MON % 6.9 % 2 Unknown COMPLETE BLOOD COUNT 20448 EOS % 2.6 % 2 Unknown COMPLETE BLOOD COUNT 31620 BASO % 0.3 % 2 Unknown COMPLETE BLOOD COUNT 46122 RDW 12.8 % 2 Unknown COMPLETE BLOOD COUNT 55476 ABS CADEN 8.12 10e9/L 012 Unknown COMPLETE BLOOD COUNT 83834 ABS LYMPH 2.62 10e9/L 012 Unknown COMPLETE BLOOD COUNT 57830 ABS MONO 0.82 10e9/L 012 Unknown COMPLETE BLOOD COUNT 54111 ABS EOS 0.31 10e9/L 012 Unknown COMPLETE BLOOD COUNT 02323 ABS BASO 0.04 10e9/L 012 Unknown COMPLETE BLOOD COUNT 55310 RDW-SD 41.5 fL 2 Unknown GFR CALC 7425859 GFR AA >60 ML/MIN 05/06/2012 Unknown GFR CALC 2175640 GFR NON-AA 58.0L ML/MIN 05/06/2012 Unkno wn FREE T4 83373 FREE T4 1.15 NG/DL 05/06/2012 Unknown THYROID STIMULATING HORMONE 71292 TSH 1.568 uIU/ML 05/06/2012 Unknown COMPREHENSIVE METABOLIC 23981 AST 20 U/L 2011 Unknown COMPREHENSIVE METABOLIC 94635 ALT 12 IU/L 2011 Unknown COMPREHENSIVE METABOLIC 11476 BUN 20 MG/DL 2011 Unknown COMPREHENSIVE METABOLIC 22456 ALBUMIN 4.5 GM/DL 2011 Unknown COMPREHENSIVE METABOLIC 40734 CHLORIDE 91 MMOL/L 2011 Unknown COMPREHENSIVE METABOLIC 38927 BILI TOT 0.4 MG/DL 2011 Unknown COMPREHENSIVE METABOLIC 84597 ALK PHOS 73 U/L 2011 Unknown COMPREHENSIVE METABOLIC 13756 SODIUM 139 MMOL/L 05/06 Unknown COMPREHENSIVE METABOLIC 34523 CREATININE 1.02 MG/DL 04/11 Unknown COMPREHENSIVE METABOLIC 68637 CALCIUM 9.7 MG/DL 2011 Unknown COMPREHENSIVE METABOLIC 31645 POTASSIUM 3.1 MMOL/L 05/06 Unknown COMPREHENSIVE METABOLIC 39714 PROT TOT 7.3 GM/DL 2011 Unknown COMPREHENSIVE METABOLIC 60073 Glucose 118 MG/DL 2011 Unknown COMPREHENSIVE METABOLIC 04948 BICARB 33 MMOL/L 2011 Unknown COMPREHENSIVE METABOLIC 59656 ANION GAP 15 MEQ/L 2011 Unknown Procedures Procedure Codes Date ROUTINE VENIPUNCTURE CPT-4: 77030 09/29/2019 URINALYSIS NONAUTO W/O SCOPE CPT-4: 76526 09/29/2019 COMPREHEN METABOLIC PANEL CPT-4: 00403 09/29/2019 LIPID PANEL CPT-4: 21667 09/29/2019 A1C HPLC CPT-4: 23526 09/29/2019 ASSAY OF FREE THYROXINE CPT-4: 70698 09/29/2019 ASSAY THYROID STIM HORMONE CPT-4: 66047 09/29/2019 COMPLETE CBC W/AUTO DIFF WBC CPT-4: 99974 09/29/2019 URINALYSIS NONAUTO W/O SCOPE CPT-4: 27539 09/30/2018 MICROALBUMIN QUANTITATIVE CPT-4: 27289 09/30/2018 CEFTRIAXONE SODIUM INJECTION CPT-4: J0696 06/19/2018 THER/PROPH/DIAG INJ SC/IM CPT-4: 24099 06/19/2018 CEFTRIAXONE SODIUM INJECTION CPT-4: J0696 06/17/2018 THER/PROPH/DIAG INJ SC/IM CPT-4: 19664 06/17/2018 THER/PROPH/DIAG INJ SC/IM CPT-4: 06452 05/16/2018 KETOROLAC TROMETHAMINE INJ CPT-4: J1885 05/16/2018 ONDANSETRON HCL INJECTION CPT-4: J2405 05/16/2018 THER/PROPH/DIAG INJ SC/IM CPT-4: 36587 05/16/2018 ROUTINE VENIPUNCTURE CPT-4: 00424 03/20/2018 COMPREHEN METABOLIC PANEL CPT-4: 10466 03/20/2018 DEXAMETHASONE SODIUM PHOS CPT-4: J1100 02/11/2018 THER/PROPH/DIAG INJ SC/IM CPT-4: 63216 02/11/2018 TRIAMCINOLONE ACET INJ NOS CPT-4: J3301 02/11/2018 CEFTRIAXONE SODIUM INJECTION CPT-4: J0696 02/01/2018 THER/PROPH/DIAG INJ SC/IM CPT-4: 24236 02/01/2018 CEFTRIAXONE SODIUM INJECTION CPT-4: J0696 01/30/2018 THER/PROPH/DIAG INJ SC/IM CPT-4: 77961 01/30/2018 ROUTINE VENIPUNCTURE CPT-4: 20529 12/10/2017 ASSAY OF FREE THYROXINE CPT-4: 58829 12/10/2017 ASSAY THYROID STIM HORMONE CPT-4: 01797 12/10/2017 COMPREHEN METABOLIC PANEL CPT-4: 62998 12/10/2017 COMPLETE CBC W/AUTO DIFF WBC CPT-4: 66981 12/10/2017 LIPID PANEL CPT-4: 02701 12/10/2017 A1C HPLC CPT-4: 63350 12/10/2017 CEFTRIAXONE SODIUM INJECTION CPT-4: J0696 12/10/2017 THER/PROPH/DIAG INJ SC/IM CPT-4: 34403 12/10/2017 CEFTRIAXONE SODIUM INJECTION CPT-4: J0696 12/07/2017 THER/PROPH/DIAG INJ SC/IM CPT-4: 94574 12/07/2017 DEXAMETHASONE SODIUM PHOS CPT-4: J1100 12/07/2017 THER/PROPH/DIAG INJ SC/IM CPT-4: 81878 12/07/2017 CEFTRIAXONE SODIUM INJECTION CPT-4: J0696 10/08/2017 THER/PROPH/DIAG INJ SC/IM CPT-4: 09440 10/08/2017 CEFTRIAXONE SODIUM INJECTION CPT-4: J0696 09/21/2017 THER/PROPH/DIAG INJ SC/IM CPT-4: 85807 09/21/2017 CEFTRIAXONE SODIUM INJECTION CPT-4: J0696 09/20/2017 THER/PROPH/DIAG INJ SC/IM CPT-4: 28860 09/20/2017 REMOVAL OF NAIL PLATE CPT-4: 15343 08/29/2017 THER/PROPH/DIAG INJ SC/IM CPT-4: 70087 08/29/2017 TRIAMCINOLONE ACET INJ NOS CPT-4: J3301 08/29/2017 CEFTRIAXONE SODIUM INJECTION CPT-4: J0696 08/29/2017 THER/PROPH/DIAG INJ SC/IM CPT-4: 38360 08/29/2017 DESTRUCT PREMALG LESION (Cryosurgery) CPT-4: 64136 ROUTINE VENIPUNCTURE CPT-4: 34233 06/27/2017 ASSAY OF FREE THYROXINE CPT-4: 64211 06/27/2017 ASSAY THYROID STIM HORMONE CPT-4: 46157 06/27/2017 COMPREHEN METABOLIC PANEL CPT-4: 29169 06/27/2017 COMPLETE CBC W/AUTO DIFF WBC CPT-4: 82629 06/27/2017 EXC TR-EXT B9+REECE 0.5 CM< CPT-4: 88962 01/24/2017 THER/PROPH/DIAG INJ SC/IM CPT-4: 83765 08/02/2016 DEXAMETHASONE SODIUM PHOS CPT-4: J1100 08/02/2016 DESTRUCT PREMALG LESION (Cryosurgery) CPT-4: 53868 EXC TR-EXT B9+REECE 0.5 CM< CPT-4: 79523 08/01/2016 AEROBIC WOUND CULTURE & STN CPT-4: 46020 07/06/2016 CEFTRIAXONE SODIUM INJECTION CPT-4: J0696 05/25/2016 THER/PROPH/DIAG INJ SC/IM CPT-4: 04650 05/25/2016 THER/PROPH/DIAG INJ SC/IM CPT-4: 33701 04/26/2016 DEXAMETHASONE SODIUM PHOS CPT-4: J1100 04/26/2016 CEFTRIAXONE SODIUM INJECTION CPT-4: J0696 04/26/2016 THER/PROPH/DIAG INJ SC/IM CPT-4: 75776 04/26/2016 THER/PROPH/DIAG INJ SC/IM CPT-4: 70333 02/09/2016 TRIAMCINOLONE ACET INJ NOS CPT-4: J3301 02/09/2016 URINALYSIS NONAUTO W/O SCOPE CPT-4: 09529 01/24/2016 URINE CULTURE/ COLONY COUNT CPT-4: 46021 01/24/2016 THER/PROPH/DIAG INJ SC/IM CPT-4: 20293 12/08/2015 TRIAMCINOLONE ACET INJ NOS CPT-4: J3301 12/08/2015 THER/PROPH/DIAG INJ SC/IM CPT-4: 77439 10/07/2015 TRIAMCINOLONE ACET INJ NOS CPT-4: J3301 10/07/2015 DESTRUCT PREMALG LESION (Cryosurgery) CPT-4: 05040 THER/PROPH/DIAG INJ SC/IM CPT-4: 66200 03/16/2015 METHYLPREDNISOLONE 40 MG INJ CPT-4: J1030 03/16/2015 DESTRUCT PREMALG LESION (Cryosurgery) CPT-4: 17903 THER/PROPH/DIAG INJ SC/IM CPT-4: 61982 09/11/2014 METHYLPREDNISOLONE 40 MG INJ CPT-4: J1030 09/11/2014 TRIAMCINOLONE ACET INJ NOS CPT-4: J3301 09/11/2014 CEFTRIAXONE SODIUM INJECTION CPT-4: J0696 09/11/2014 THER/PROPH/DIAG INJ SC/IM CPT-4: 72485 09/11/2014 ROUTINE VENIPUNCTURE CPT-4: 18031 08/27/2014 COMPREHEN METABOLIC PANEL CPT-4: 27623 08/27/2014 COMPLETE CBC W/AUTO DIFF WBC CPT-4: 97751 08/27/2014 LIPID PANEL CPT-4: 87953 08/27/2014 ROUTINE VENIPUNCTURE CPT-4: 58044 07/21/2014 ASSAY OF AMYLASE CPT-4: 64008 07/21/2014 ASSAY OF LIPASE CPT-4: 09501 07/21/2014 THER/PROPH/DIAG INJ SC/IM CPT-4: 97429 07/15/2014 TRIAMCINOLONE ACET INJ NOS CPT-4: J3301 07/15/2014 ROUTINE VENIPUNCTURE CPT-4: 69219 05/14/2014 ASSAY OF FREE THYROXINE CPT-4: 08579 05/14/2014 ASSAY THYROID STIM HORMONE CPT-4: 68453 05/14/2014 COMPREHEN METABOLIC PANEL CPT-4: 10626 05/14/2014 COMPLETE CBC W/AUTO DIFF WBC CPT-4: 99715 05/14/2014 LIPID PANEL CPT-4: 57052 05/14/2014 CEFTRIAXONE SODIUM INJECTION CPT-4: J0696 04/21/2014 THER/PROPH/DIAG INJ SC/IM CPT-4: 18663 04/21/2014 THER/PROPH/DIAG INJ SC/IM CPT-4: 40019 04/21/2014 TRIAMCINOLONE ACET INJ NOS CPT-4: J3301 04/21/2014 THER/PROPH/DIAG INJ SC/IM CPT-4: 82877 03/04/2014 METHYLPREDNISOLONE 40 MG INJ CPT-4: J1030 03/04/2014 TRIAMCINOLONE ACET INJ NOS CPT-4: J3301 03/04/2014 CEFTRIAXONE SODIUM INJECTION CPT-4: J0696 03/04/2014 THER/PROPH/DIAG INJ SC/IM CPT-4: 65044 03/04/2014 TDAP VACCINE 7 YRS/> IM CPT-4: 08077 02/27/2014 IMMUNIZATION ADMIN CPT-4: 54103 02/27/2014 DESTRUCT PREMALG LESION (Cryosurgery) CPT-4: 53728 DESTRUCT PREMALG LES 2-14 CPT-4: 97518 01/13/2014 THER/PROPH/DIAG INJ SC/IM CPT-4: 95614 10/21/2013 METHYLPREDNISOLONE 40 MG INJ CPT-4: J1030 10/21/2013 TRIAMCINOLONE ACET INJ NOS CPT-4: J3301 10/21/2013 CEFTRIAXONE SODIUM INJECTION CPT-4: J0696 08/27/2013 THER/PROPH/DIAG INJ SC/IM CPT-4: 90295 08/27/2013 THER/PROPH/DIAG INJ SC/IM CPT-4: 02723 08/27/2013 METHYLPREDNISOLONE 40 MG INJ CPT-4: J1030 08/27/2013 TRIAMCINOLONE ACET INJ NOS CPT-4: J3301 08/27/2013 THER/PROPH/DIAG INJ SC/IM CPT-4: 07085 06/23/2013 METHYLPREDNISOLONE 40 MG INJ CPT-4: J1030 06/23/2013 TRIAMCINOLONE ACET INJ NOS CPT-4: J3301 06/23/2013 THER/PROPH/DIAG INJ SC/IM CPT-4: 28954 05/26/2013 METHYLPREDNISOLONE 40 MG INJ CPT-4: J1030 05/26/2013 TRIAMCINOLONE ACET INJ NOS CPT-4: J3301 05/26/2013 ROUTINE VENIPUNCTURE CPT-4: 78790 03/05/2013 ASSAY OF FREE THYROXINE CPT-4: 99086 03/05/2013 ASSAY THYROID STIM HORMONE CPT-4: 00862 03/05/2013 COMPREHEN METABOLIC PANEL CPT-4: 97612 03/05/2013 COMPLETE CBC W/AUTO DIFF WBC CPT-4: 39322 03/05/2013 A1C GLYCOSYLATED HEMOGLOBIN TEST CPT-4: 72938 013 DRAIN/INJECT JOINT/BURSA CPT-4: 14561 12/04/2012 METHYLPREDNISOLONE 40 MG INJ CPT-4: J1030 12/04/2012 TRIAMCINOLONE ACET INJ NOS CPT-4: J3301 12/04/2012 CEFTRIAXONE SODIUM INJECTION CPT-4: J0696 11/21/2012 THER/PROPH/DIAG INJ SC/IM CPT-4: 23518 11/21/2012 THER/PROPH/DIAG INJ SC/IM CPT-4: 79181 10/14/2012 METHYLPREDNISOLONE 40 MG INJ CPT-4: J1030 10/14/2012 TRIAMCINOLONE ACET INJ NOS CPT-4: J3301 10/14/2012 URINALYSIS NONAUTO W/O SCOPE CPT-4: 13463 09/27/2012 ROUTINE VENIPUNCTURE CPT-4: 40360 09/25/2012 ASSAY OF FREE THYROXINE CPT-4: 47248 09/25/2012 ASSAY THYROID STIM HORMONE CPT-4: 86956 09/25/2012 COMPREHEN METABOLIC PANEL CPT-4: 38724 09/25/2012 COMPLETE CBC W/AUTO DIFF WBC CPT-4: 96252 09/25/2012 C-REACTIVE PROTEIN CPT-4: 50477 09/25/2012 THER/PROPH/DIAG INJ SC/IM CPT-4: 49760 08/29/2012 METHYLPREDNISOLONE 40 MG INJ CPT-4: J1030 08/29/2012 TRIAMCINOLONE ACET INJ NOS CPT-4: J3301 08/29/2012 DESTRUCT PREMALG LESION (Cryosurgery) CPT-4: 06211 THER/PROPH/DIAG INJ SC/IM CPT-4: 06211 05/06/2012 METHYLPREDNISOLONE 40 MG INJ CPT-4: J1030 05/06/2012 TRIAMCINOLONE ACET INJ NOS CPT-4: J3301 05/06/2012 VITAMIN B 12 FOLIC ACID CPT-4: 62556|54287 05/06/2012 RBC SED RATE AUTOMATED CPT-4: 46754 05/06/2012 ROUTINE VENIPUNCTURE CPT-4: 99155 05/06/2012 ASSAY OF FREE THYROXINE CPT-4: 89260 05/06/2012 ASSAY THYROID STIM HORMONE CPT-4: 26616 05/06/2012 COMPREHEN METABOLIC PANEL CPT-4: 43493 05/06/2012 COMPLETE CBC W/AUTO DIFF WBC CPT-4: 58038 05/06/2012 ASSAY OF BLOOD/URIC ACID CPT-4: 73848 05/06/2012 THER/PROPH/DIAG INJ SC/IM CPT-4: 77595 03/19/2012 KETOROLAC TROMETHAMINE INJ CPT-4: J1885 03/19/2012 KETOROLAC TROMETHAMINE INJ CPT-4: J1885 01/30/2012 THER/PROPH/DIAG INJ SC/IM CPT-4: 78140 01/30/2012 PROMETHAZINE HCL INJECTION CPT-4: J2550 01/30/2012 THER/PROPH/DIAG INJ SC/IM CPT-4: 79206 01/24/2012 METHYLPREDNISOLONE 40 MG INJ CPT-4: J1030 01/24/2012 TRIAMCINOLONE ACET INJ NOS CPT-4: J3301 01/24/2012 THER/PROPH/DIAG INJ SC/IM CPT-4: 63507 09/13/2011 KETOROLAC TROMETHAMINE INJ CPT-4: J1885 09/13/2011 THER/PROPH/DIAG INJ SC/IM CPT-4: 80341 09/13/2011 PROMETHAZINE HCL INJECTION CPT-4: J2550 09/13/2011 CEFTRIAXONE SODIUM INJECTION CPT-4: J0696 07/20/2011 THER/PROPH/DIAG INJ SC/IM CPT-4: 80674 07/20/2011 THER/PROPH/DIAG INJ SC/IM CPT-4: 24110 07/20/2011 METHYLPREDNISOLONE INJECTION CPT-4: J2930 07/20/2011 URINALYSIS NONAUTO W/O SCOPE CPT-4: 31243 05/09/2011 CEFTRIAXONE SODIUM INJECTION CPT-4: J0696 05/09/2011 THER/PROPH/DIAG INJ SC/IM CPT-4: 29124 05/09/2011 THER/PROPH/DIAG INJ SC/IM CPT-4: 85154 05/09/2011 PROMETHAZINE HCL INJECTION CPT-4: J2550 05/09/2011 HYDRATION IV INFUSION INIT CPT-4: 82916 05/09/2011 DESTRUCT PREMALG LESION (Cryosurgery) CPT-4: 04737 DESTRUCT PREMALG LES 2-14 CPT-4: 33354 07/19/2010 REMOVAL OF SKIN TAGS <W/15 CPT-4: 07148 05/30/2010 THER/PROPH/DIAG INJ SC/IM CPT-4: 36361 04/05/2010 CEFTRIAXONE SODIUM INJECTION CPT-4: J0696 04/05/2010 TRIAMCINOLONE ACET INJ NOS CPT-4: J3301 04/05/2010 METHYLPREDNISOLONE 40 MG INJ CPT-4: J1030 04/05/2010 THER/PROPH/DIAG INJ SC/IM CPT-4: 26987 04/05/2010 TRIAMCINOLONE ACET INJ NOS CPT-4: J3301 03/09/2010 METHYLPREDNISOLONE 40 MG INJ CPT-4: J1030 03/09/2010 THER/PROPH/DIAG INJ SC/IM CPT-4: 46941 03/09/2010 THER/PROPH/DIAG INJ SC/IM CPT-4: 72296 03/09/2010 CEFTRIAXONE SODIUM INJECTION CPT-4: J0696 03/09/2010 Vital Signs Date Vital 10/07/2019 Blood Pressure 1: 134/82 Code: 8480-6 Heart Rate 1: 105 bpm Respiratory Rate: 17 bpm SpO2: 96% Temperature: 36.8 (C) / 98.2 (F) We ight: 198 lbs 09/30/2019 Blood Pressure 1: 132/80 Code: 8480-6 BMI: 35.8 Code: 20548-0 Heart Rate 1: 88 bpm Height: 5'4" Respiratory Rate: 20 bpm SpO2: 95% Tempera ture: 36.9 (C) / 98.5 (F) Weight: 210 lbs 05/28/2019 Blood Pressure 1: 126/82 Code: 8480-6 BMI: 35.0 Code: 42496-8 Heart Rate 1: 88 bpm Height: 5'4" [...] 1: 128/90 Code: 8480-6 BMI: 37.2 Code: 14483-2 Heart Rate 1: 84 bpm Height: 5'4" Respiratory Rate: 20 bpm SpO2: 95% Tempera ture: 36.6 (C) / 97.8 (F) Weight: 217 lbs 08/27/2018 Blood Pressure 1: 128/88 Code: 8480-6 BMI: 38.3 Code: 73221-0 Heart Rate 1: 84 bpm Height: 5'4" [...] 1: 119/72 Code: 8480-6 BMI: 37.4 Code: 30733-9 Heart Rate 1: 82 bpm Height: 5'4" Respiratory Rate: 12 bpm SpO2: 94% Tempera ture: 35.2 (C) / 95.4 (F) Weight: 218 lbs 12/18/2017 Blood Pressure 1: 128/86 Code: 8480-6 BMI: 37.8 Code: 53914-3 Heart Rate 1: 84 bpm Height: 5'4" [...] 1: 128/82 Code: 8480-6 BMI: 35.5 Code: 11693-9 Heart Rate 1: 84 bpm Height: 5'4" [...] 1: 128/82 Code: 8480-6 BMI: 30.2 Code: 72021-6 Heart Rate 1: 80 bpm Height: 5'4" [...] 1: 128/86 Code: 8480-6 BMI: 32.8 Code: 96431-8 Heart Rate 1: 66 bpm Height: 5'4" Respiratory Rate: 18 bpm Temperature: 36 .3 (C) / 97.3 (F) Weight: 191 lbs 06/23/2013 Blood Pressure 1: 132/94 Code: 8480-6 BMI: 34.0 Code: 62318-8 Heart Rate 1: 84 bpm Height: 5'4" Respiratory Rate: 20 bpm Temperature: 36 .8 (C) / 98.2 (F) Weight: 198 lbs 05/26/2013 Blood Pressure 1: 114/80 Code: 8480-6 BMI: 35.0 Code: 33842-0 Heart Rate 1: 80 bpm Height: 5'4" Respiratory Rate: 20 bpm Temperature: 36 .4 (C) / 97.6 (F) Weight: 204 lbs 04/16/2013 Blood Pressure 1: 114/82 Code: 8480-6 BMI: 36.7 Code: 38945-8 Heart Rate 1: 84 bpm Height: 5'4" Respiratory Rate: 20 bpm Temperature: 36 .7 (C) / 98.0 (F) Weight: 214 lbs 03/05/2013 Blood Pressure 1: 136/90 Code: 8480-6 BMI: 37.1 Code: 79226-7 Heart Rate 1: 84 bpm Height: 5'4" [...] 1: 168/114 Code: 8480-6 BMI: 36.2 Code: 59260-3 Heart Rate 1: 104 bpm Height: 5'4" Respiratory Rate: 20 bpm Temperature: 36 .8 (C) / 98.2 (F) Weight: 211 lbs 11/22/2012 Blood Pressure 1: 128/90 Code: 8480-6 Heart Rate 1: 88 bpm Respiratory Rate: 20 bpm SpO2: 96% Temperature: 36.8 (C) / 98.2 (F) 11/21/2012 Blood Pressure 1: 146/100 Code: 8480-6 BMI: 35.7 Code: 61075-0 Heart Rate 1: 96 bpm Height: 5'4" [...] 1: 138/100 Code: 8480-6 BMI: 35.7 Code: 08686-1 Heart Rate 1: 96 bpm Height: 5'4" Respiratory Rate: 20 bpm Temperature: 36 .8 (C) / 98.2 (F) Weight: 208 lbs 05/06/2012 Blood Pressure 1: 154/102 Code: 8480-6 BMI: 34.7 Code: 51864-2 Heart Rate 1: 116 bpm Height: 5'4" Respiratory Rate: 20 bpm Temperature: 36 .8 (C) / 98.2 (F) Weight: 202 lbs 04/03/2012 Blood Pressure 1: 134/94 Code: 8480-6 BMI: 34.8 Code: 77016-0 Heart Rate 1: 108 bpm Height: 5'4" Respiratory Rate: 20 bpm Temperature: 36 .8 (C) / 98.2 (F) Weight: 203 lbs 03/19/2012 Blood Pressure 1: 148/106 Code: 8480-6 BMI: 35.0 Code: 10036-1 Heart Rate 1: 100 bpm Height: 5'4" Respiratory Rate: 20 bpm Temperature: 36 .6 (C) / 97.9 (F) Weight: 204 lbs 02/22/2012 Blood Pressure 1: 146/94 Code: 8480-6 He art Rate 1: 88 bpm 02/21/2012 Blood Pressure 1: 172/120 Code: 8480-6 B lood Pressure 2: 152/106 Code: 8480-6 Heart Rate 1: 116 bpm 02/20/2012 Blood Pressure 1: 160/100 Code: 8480-6 BMI: 32.0 Code: 40803-0 Heart Rate 1: 84 bpm Height: 5'7" Temperature: 36.5 (C) / 97.7 (F) Weight: 204 lbs 01/30/2012 Blood Pressure 1: 152/110 Code: 8480-6 BMI: 32.0 Code: 07004-3 Heart Rate 1: 116 bpm Height: 5'7" Respiratory Rate: 20 bpm Temperature: 37 .0 (C) / 98.6 (F) Weight: 204 lbs 01/24/2012 Blood Pressure 1: 146/100 Code: 8480-6 BMI: 32.0 Code: 73764-4 Heart Rate 1: 100 bpm Height: 5'7" Respiratory Rate: 20 bpm Temperature: 36 .7 (C) / 98.0 (F) Weight: 204 lbs 01/10/2012 Blood Pressure 1: 156/94 Code: 8480-6 BMI: 32.6 Code: 36827-5 Heart Rate 1: 72 bpm Height: 5'7" Respiratory Rate: 20 bpm Temperature: 36 .8 (C) / 98.2 (F) Weight: 208 lbs 12/11/2011 Blood Pressure 1: 146/100 Code: 8480-6 Heart Rat e 1: 116 bpm Height: 5'7" Respiratory Rate: 20 bpm Temperature: 36.9 (C) / 98.4 (F) We ight: 11/09/2011 Blood Pressure 1: 148/96 Code: 8480-6 BMI: 32.1 Code: 82424-2 Heart Rate 1: 116 bpm Height: 5'7" Respiratory Rate: 20 bpm Temperature: 36 .7 (C) / 98.0 (F) Weight: 205 lbs 09/13/2011 Blood Pressure 1: 126/88 Code: 8480-6 Heart Rate 1: 88 bpm Height: 5'7" Respiratory Rate: 20 bpm Temperature: 36.9 (C) / 98.4 (F) We ight: 08/31/2011 Blood Pressure 1: 118/82 Code: 8480-6 BMI: 32.0 Code: 87871-3 Heart Rate 1: 80 bpm Height: 5'7" Temperature: 36.4 (C) / 97.6 (F) Weight: 204 lbs 07/06/2011 Blood Pressure 1: 128/86 Code: 8480-6 BMI: 30.9 Code: 42406-1 Heart Rate 1: 92 bpm Height: 5'7" Respiratory Rate: 20 bpm Temperature: 36 .9 (C) / 98.4 (F) Weight: 197 lbs 06/06/2011 Blood Pressure 1: 112/74 Code: 8480-6 BMI: 31.0 Code: 10983-6 Heart Rate 1: 72 bpm Height: 5'7" [...] 1: 128/92 Code: 8480-6 BMI: 33.6 Code: 13659-2 Heart Rate 1: 104 bpm Height: 5'4" [...] Check-up Encounters Encounter Performer Location Codes Date ([id number]) OFFICE/OUTPATIENT VISIT EST Diagnosis: Ingrowing nail[ICD10: L60.0] Diagnosis: Type 2 diabetes mellitus with hyperglycemia[ICD10: E11.65] Kathleen Zuniga MARÍA ELENA [email or web address] ([employer] CPT-4: 24489 10/07/2019 ([id number]) OFFICE/OUTPATIENT VISIT EST Diagnosis: DM w/o complication type II, uncontrolled[ICD10: E11.65] Diagnosis: Hypertriglyceridemia[ICD10: E78.1] Diagnosis: Essential hypertension[ICD10: I10] María Elena JEAN [employer] CPT-4: 65701 09/30/2019 ([id number]) NURSE/OUTPATIENT VISIT EST Diagnosis: Essential (primary) hypertension[ICD10: I10] Diagnosis: Cervicalgia[ICD10: M54.2] Diagnosis: Hyperglycemia, unspecified[ICD10: R73.9] Diagnosis: Mixed hyperlipidemia[ICD10: E78.2] María Elena JEAN [employer] CPT-4: 01251 09/29/2019 ([id number]) OFFICE/OUTPATIENT VISIT EST Diagnosis: Essential (primary) hypertension[ICD10: I10] Diagnosis: Fall from bed, sequela[ICD10: W06.XXXS] María Elena REED [email or web address] ([employer] CPT-4: 51329 05/28/2019 ([id number]) NURSE/OUTPATIENT VISIT EST Diagnosis: Essential (primary) hypertension[ICD10: I10] María Elena APPIAH [employer] [facility] CPT-4: 43324 05/19/2019 ([id number]) OFFICE/OUTPATIENT VISIT EST Diagnosis: Essential (primary) hypertension[ICD10: I10] Diagnosis: Type 2 diabetes mellitus with hyperglycemia[ICD10: E11.65] Diagnosis: Intervertebral disc disorders with radiculopathy, 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] Diagnosis: Hormone replacement therapy[ICD10: Z79.890] María Elena APPIAH [employer] [facility] CPT-4: 29555 01/22/2019 ([id number]) OFFICE/OUTPATIENT VISIT EST Diagnosis: Essential (primary) hypertension[ICD10: I10] Diagnosis: Type 2 diabetes mellitus with hyperglycemia[ICD10: E11.65] María Elena APPIAH [employer] [facility] CPT-4: 54919 09/30/2018 ([id number]) OFFICE/OUTPATIENT VISIT EST Diagnosis: Pain in left elbow[ICD10: M25.522] Diagnosis: Acute stress reaction[ICD10: F43.0] Diagnosis: Primary insomnia[ICD10: F51.01] Diagnosis: Abnormal weight gain[ICD10: R63.5] María Elena [employer] [facility] CPT-4: 81619 08/27/2018 ([id number]) OFFICE/OUTPATIENT VISIT EST Diagnosis: Acute recurrent sinusitis, unspecified[ICD10: J01.91] Diagnosis: Follicular disorder, unspecified[ICD10: L73.9] Diagnosis: Tinea corporis[ICD10: B35.4] María Elena APPIAH [employer] [facility] CPT-4: 37967 08/09/2018 ([id number]) OFFICE/OUTPATIENT VISIT EST Diagnosis: Tinea corporis[ICD10: B35.4] Diagnosis: Anxiety disorder, unspecified[ICD10: F41.9] Diagnosis: Menopausal and female climacteric states[ICD10: N95.1] María Elena APPIAH [employer] [facility] CPT-4: 84976 07/22/2018 ([id number]) NURSE/OUTPATIENT VISIT EST Diagnosis: Cellulitis of right toe[ICD10: L03.031] María Elena APPIAH DO [facility] CPT-4: 37412 06/19/2018 ([id number]) OFFICE/OUTPATIENT VISIT EST Diagnosis: Cellulitis of right toe[ICD10: L03.031] Kathleen APPIAH DO [facility] CPT-4: 24193 06/17/2018 ([id number]) OFFICE/OUTPATIENT VISIT EST Diagnosis: Migraine without aura, intractable, without status migrainosus[ICD10: G43.019] Diagnosis: Zoster without complications[ICD10: B02.9] Kathleen APPIAH DO [facility] CPT-4: 75714 05/16/2018 ([id number]) OFFICE/OUTPATIENT VISIT EST Diagnosis: Cellulitis of right lower limb[ICD10: L03.115] Kathleen APPIAH DO [facility] CPT-4: 63638 03/20/2018 ([id number]) OFFICE/OUTPATIENT VISIT EST Diagnosis: Cellulitis of right lower limb[ICD10: L03.115] Kathleen APPIAH DO [facility] CPT-4: 62527 03/18/2018 ([id number]) OFFICE/OUTPATIENT VISIT EST Diagnosis: Cellulitis of right lower limb[ICD10: L03.115] Kathleen APPIAH DO [facility] CPT-4: 47635 03/15/2018 ([id number]) OFFICE/OUTPATIENT VISIT EST Diagnosis: Acute sinusitis, unspecified[ICD10: J01.90] Kathleen APPIAH DO [facility] CPT-4: 18326 02/11/2018 ([id number]) NURSE/OUTPATIENT VISIT EST Diagnosis: Otitis media, unspecified, right ear[ICD10: H66.91] María Elena APPIAH DO [facility] CPT-4: 27122 02/01/2018 ([id number]) OFFICE/OUTPATIENT VISIT EST Diagnosis: Acute suppurative otitis media without spontaneous rupture of ear drum, left ear[ICD10: H66.002] Diagnosis: Abnormal weight gain[ICD10: R63.5] Diagnosis: Intervertebral disc disorders with radiculopathy, 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] Kathleen APPIAH DO [facility] CPT-4: 99 214 01/30/2018 ([id number]) PREV VISIT EST AGE 40-64 Diagnosis: Encounter for general adult medical examination without abnormal findings[ICD10: Z00.00] Diagnosis: Essential (primary) hypertension[ICD10: I10] Diagnosis: Mixed hyperlipidemia[ICD10: E78.2] Diagnosis: Type 2 diabetes mellitus with hyperglycemia[ICD10: E11.65] Diagnosis: 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] María Elena APPIAH [employer] [facility] CPT-4: 42535 12/18/2017 ([id number]) OFFICE/OUTPATIENT VISIT EST Diagnosis: Cellulitis of right toe[ICD10: L03.031] Diagnosis: Mixed hyperlipidemia[ICD10: E78.2] Diagnosis: Essential (primary) hypertension[ICD10: I10] Diagnosis: Hyperglycemia, unspecified[ICD10: R73.9] Diagnosis: Nontoxic goiter, 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] María Elena APPIAH [employer] [facility] CPT-4: 34996 12/10/2017 ([id number]) OFFICE/OUTPATIENT VISIT EST Diagnosis: Cellulitis of right toe[ICD10: L03.031] Diagnosis: Acute sinusitis, unspecified[ICD10: J01.90] Kathleen APPIAH [employer] [facility] CPT-4: 38864 12/07/2017 OFFICE/OUTPATIENT VISIT EST Diagnosis: Acute maxillary sinusitis, unspecified[ICD10: J01.00] Kathleen APPIAH [employer] [facility] CPT-4: 02203 10/08/2017 ([id number]) OFFICE/OUTPATIENT VISIT EST Diagnosis: Cellulitis of left toe[ICD10: L03.032] María Elena ORTA [employer] [facility] CPT-4: 91615 09/21/2017 ([id number]) OFFICE/OUTPATIENT VISIT EST Diagnosis: Insomnia, unspecified[ICD10: G47.00] Diagnosis: Major depressive disorder, single episode, unspecified[ICD10: F32.9] Diagnosis: Anxiety disorder, unspecified[ICD10: F41.9] Diagnosis: Cellulitis of left toe[ICD10: L03.032] Diagnosis: Snoring[ICD10: R06.83] Kathleen APPIAH DO [facility] CPT-4: 41810 09/20/2017 ([id number]) OFFICE/OUTPATIENT VISIT EST Diagnosis: Cellulitis of left toe[ICD10: L03.032] María Elena Seamusdawn MARLIN APPIAH DO [facility] CPT-4: 34578 07/19/2017 OFFICE/OUTPATIENT VISIT EST Diagnosis: Chronic sinusitis, unspecified[ICD10: J32.9] Diagnosis: Generalized hyperhidrosis[ICD10: R61] Kathleen APPIAH DO [facility] CPT-4: 77458 06/27/2017 ([id number]) OFFICE/OUTPATIENT VISIT EST Diagnosis: Intervertebral disc disorders with radiculopathy, 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] Diagnosis: Primary insomnia[ICD10: F51.01] Diagnosis: Other fatigue[ICD10: R53.83] María Elena ELLISLINE Fabiola APPIAH DO [facility] CPT-4: 14539 04/10/2017 ([id number]) OFFICE/OUTPATIENT VISIT EST Diagnosis: Primary insomnia[ICD10: F51.01] Diagnosis: Localized edema[ICD10: R60.0] Diagnosis: 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] María Elena Seamusdawn JUARES AlanJj TD [employer] [facility] CPT-4: 85382 12/13/2016 ([id number]) OFFICE/OUTPATIENT VISIT EST Diagnosis: Primary insomnia[ICD10: F51.01] Diagnosis: Cyanosis[ICD10: R23.0] María Elena Seamusdawn JUARES AlanJj CIRO Bazzi [employer] [facility] CPT-4: 54829 11/01/2016 ([id number]) PREV VISIT EST AGE 40-64 Diagnosis: Encounter for gynecological examination (general) (routine) without abnormal findings[ICD10: Z01.419] Diagnosis: Encounter for routine child health examination without abnormal findings[ICD10: Z00.129] María Elena JUARES AlanJj TD [employer] [facility] CPT-4: 29657 10/17/2016 ([id number]) OFFICE/OUTPATIENT VISIT EST Diagnosis: Other seasonal allergic rhinitis[ICD10: J30.2] María Elena APPIAH DO [facility] CPT-4: 61709 10/10/2016 ([id number]) OFFICE/OUTPATIENT VISIT EST Diagnosis: Pain in left arm[ICD10: M79.602] Diagnosis: Contact with and (suspected) exposure to potentially hazardous body fluids[ICD10: Z77.21] Diagnosis: 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, 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] Diagnosis: Unspecified open wound, right foot, sequela[ICD10: S91.301S] María Elena APPIAH DO [facility] CPT-4: 56538 09/19/2016 ([id number]) OFFICE/OUTPATIENT VISIT EST Diagnosis: Chronic sinusitis, unspecified[ICD10: J32.9] Diagnosis: Allergic rhinitis due to pollen[ICD10: J30.1] María Elena APPIAH [employer] [facility] CPT-4: 75381 08/24/2016 ([id number]) OFFICE/OUTPATIENT VISIT EST Diagnosis: Acute bronchitis, unspecified[ICD10: J20.9] María Elena APPIAH DO [facility] CPT-4: 81243 08/16/2016 ([id number]) OFFICE/OUTPATIENT VISIT EST Diagnosis: Otitis media, unspecified, right ear[ICD10: H66.91] Diagnosis: Acute bronchitis, unspecified[ICD10: J20.9] Marí aElena APPIAH DO [facility] CPT-4: 93215 08/10/2016 ([id number]) OFFICE/OUTPATIENT VISIT EST Diagnosis: Acute recurrent sinusitis, unspecified[ICD10: J01.91] Diagnosis: Allergic rhinitis due to pollen[ICD10: J30.1] María Elena APPIAH [employer] [facility] CPT-4: 86867 08/02/2016 ([id number]) OFFICE/OUTPATIENT VISIT EST Diagnosis: Pain in unspecified joint[ICD10: M25.50] María Elena APPIAH DO [facility] CPT-4: 53121 07/27/2016 OFFICE/OUTPATIENT VISIT EST Diagnosis: 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] Diagnosis: Acute recurrent sinusitis, unspecified[ICD10: J01.91] Diagnosis: Other fatigue[ICD10: R53.83] Diagnosis: Primary insomnia[ICD10: F51.01] Diagnosis: Pain in unspecified joint[ICD10: M25.50] María Elena APPIAH [facility] CPT-4: 92837 07/20/2016 ([id number]) OFFICE/OUTPATIENT VISIT EST Diagnosis: Blister (nonthermal), left great toe, initial encounter[ICD10: S90.422A] Loan ELLISLINE Fabiola APPIAH [facility] CPT-4: 59691 ([id number]) OFFICE/OUTPATIENT VISIT EST Diagnosis: Acute recurrent sinusitis, unspecified[ICD10: J01.91] María Elena APPIAH [facility] CPT-4: 58125 05/25/2016 ([id number]) OFFICE/OUTPATIENT VISIT EST Diagnosis: Acute sinusitis, unspecified[ICD10: J01.90] María Elena APPIAH [facility] CPT-4: 70633 04/26/2016 ([id number]) OFFICE/OUTPATIENT VISIT EST Diagnosis: Flushing[ICD10: R23.2] Diagnosis: Primary insomnia[ICD10: F51.01] María Elenamarcella ELLISLINE Fabiola [facility] [facility]ALTH [facility] CPT-4: 15069 03/02/2016 ([id number]) OFFICE/OUTPATIENT VISIT EST Diagnosis: Other seasonal allergic rhinitis[ICD10: J30.2] Loan ELLISLINE Fabiola APPIAH [facility] CPT-4: 33423 02/09/2016 ([id number]) OFFICE/OUTPATIENT VISIT EST Diagnosis: Primary insomnia[ICD10: F51.01] Diagnosis: Urinary tract infection, site not specified[ICD10: N39.0] María Elenamarcella ELLISLINE Fabiola APPIAH [facility] CPT-4: 12637 01/24/2016 ([id number]) OFFICE/OUTPATIENT VISIT EST Diagnosis: Other specified disorders of Eustachian tube, bilateral[ICD10: H69.83] Diagnosis: Allergic rhinitis, unspecified[ICD10: J30.9] Loan ELLISLINE Fabiola APPIAH [employer] [facility] CPT-4: 79338 12/23/2015 ([id number]) OFFICE/OUTPATIENT VISIT EST Diagnosis: Acute recurrent sinusitis, unspecified[ICD10: J01.91] Diagnosis: 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] Diagnosis: Allergic rhinitis, unspecified[ICD10: J30.9] María Elena Waymindimaryjane ELLISMARÍA ELENA Fabiola APPIAH [employer] [facility] CPT-4: 19276 12/08/2015 ([id number]) OFFICE/OUTPATIENT VISIT EST Diagnosis: Allergic rhinitis, unspecified[ICD10: J30.9] Diagnosis: Pain in unspecified joint[ICD10: M25.50] María Elena Td ELLISLINE AlanJj TD [employer] [facility] CPT-4: 08583 10/07/2015 ([id number]) OFFICE/OUTPATIENT VISIT EST Diagnosis: Essential (primary) hypertension[ICD10: I10] María Elena ELLISLINE Fabiola APPIAH [employer] [facility] CPT-4: 52110 10/06/2015 OFFICE/OUTPATIENT VISIT EST Diagnosis: Localized enlarged lymph nodes[ICD10: R59.0] Diagnosis: Local infection of the skin and subcutaneous tissue, unspecified[ICD10: L08.9] June Flores MARÍA ELENA Fabiola APPIAH [employer] [facility] CPT- 4: 29041 09/14/2015 ([id number]) OFFICE/OUTPATIENT VISIT EST Diagnosis: Essential (primary) hypertension[ICD10: I10] Diagnosis: Actinic keratosis[ICD10: L57.0] María Elena ELLISLINE Fabiola APPIAH [employer] [facility] CPT-4: 91155 09/07/2015 ([id number]) OFFICE/OUTPATIENT VISIT EST Diagnosis: Essential (primary) hypertension[ICD10: I10] Diagnosis: Acute stress reaction[ICD10: F43.0] María Elena COLON Fabiola APPIAH [employer] [facility] CPT-4: 94240 08/18/2015 ([id number]) OFFICE/OUTPATIENT VISIT EST Diagnosis: Essential (primary) hypertension[ICD10: I10] María Elena APPIAH DO [facility] CPT-4: 96582 07/07/2015 ([id number]) OFFICE/OUTPATIENT VISIT EST Diagnosis: Essential (primary) hypertension[ICD10: I10] María Elena APPIAH DO [facility] CPT-4: 42432 06/24/2015 ([id number]) OFFICE/OUTPATIENT VISIT EST Diagnosis: Essential (primary) hypertension[ICD10: I10] María Elena APPIAH DO [facility] CPT-4: 18011 06/21/2015 ([id number]) OFFICE/OUTPATIENT VISIT EST Diagnosis: Essential (primary) hypertension[ICD10: I10] Diagnosis: Mixed hyperlipidemia[ICD10: E78.2] Diagnosis: Acute stress reaction[ICD10: F43.0] Diagnosis: Primary insomnia[ICD10: F51.01] María Elena APPIAH DO [facility] CPT-4: 25096 06/16/2015 ([id number]) OFFICE/OUTPATIENT VISIT EST Diagnosis: INSOMNIA NOS[ICD9: 780.52] Diagnosis: HYPERTENSION[ICD9: 401.9] Diagnosis: Stress reaction[ICD9: 308.9] María Elena APPIAH DO [facility] CPT-4: 36808 06/02/2015 ([id number]) OFFICE/OUTPATIENT VISIT EST Diagnosis: HYPERTENSION[ICD9: 401.9] Diagnosis: Stress reaction[ICD9: 308.9] María Elena APPIAH DO [facility] CPT-4: 21594 05/20/2015 ([id number]) OFFICE/OUTPATIENT VISIT EST Diagnosis: Skin lesion[ICD9: 709.9] 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] María Elena APPIAH DO [facility] CPT-4: 53740 05/10/2015 ([id number]) OFFICE/OUTPATIENT VISIT EST Diagnosis: SINUSITIS, ACUTE[ICD9: 461.9] Diagnosis: ALLERGIC RHINITIS[ICD9: 477.9] Diagnosis: DERMATITIS NOS[ICD9: 692.9] María Elena ValdesJj Marcos ORI [facility] CPT-4: 81070 03/16/2015 OFFICE/OUTPATIENT VISIT EST Diagnosis: Otitis media[ICD9: 382.9] Diagnosis: SINUSITIS, ACUTE[ICD9: 461.9] June APPIAH [facility] CPT-4: 66556 09/11/2014 ([id number]) OFFICE/OUTPATIENT VISIT EST Diagnosis: HYPERLIPIDEMIA NEC/NOS[ICD9: 272.4] María Elena APPIAH [facility] CPT-4: 25363 08/31/2014 ([id number]) OFFICE/OUTPATIENT VISIT EST Diagnosis: - I - HYPERTENSION[ICD9: 401.9] Diagnosis: HYPERLIPIDEMIA NEC/NOS[ICD9: 272.4] María Elena [facility] CPT-4: 24797 08/27/2014 ([id number]) OFFICE/OUTPATIENT VISIT EST Diagnosis: ABDOMINAL PAIN[ICD9: 789.00] Diagnosis: DYSPEPSIA[ICD9: 536.8] Diagnosis: Thoracic back pain[ICD9: 724.1] María Elena [facility] CPT-4: 37820 07/21/2014 ([id number]) OFFICE/OUTPATIENT VISIT EST Diagnosis: ALLERGIC RHINITIS[ICD9: 477.9] María Elena APPIAH [facility] CPT-4: 78829 07/15/2014 ([id number]) OFFICE/OUTPATIENT VISIT EST Diagnosis: EDEMA[ICD9: 782.3] Diagnosis: Chronic insomnia[ICD9: 780.52] María Elena APPIAH [facility] CPT-4: 59606 05/18/2014 ([id number]) OFFICE/OUTPATIENT VISIT EST Diagnosis: Thyromegaly[ICD9: 240.9] Diagnosis: - I - HYPERTENSION[ICD9: 401.9] Diagnosis: ROUTINE MEDICAL EXAM[ICD9: V70.0] Diagnosis: EDEMA[ICD9: 782.3] María Elena [facility] CPT-4: 33169 05/14/2014 OFFICE/OUTPATIENT VISIT EST Diagnosis: BRONCHITIS, ACUTE[ICD9: 466.0] Diagnosis: SINUSITIS, ACUTE[ICD9: 461.9] María Elena APPIAH DO [facility] CPT-4: 57785 04/21/2014 OFFICE/OUTPATIENT VISIT EST Diagnosis: SINUSITIS, ACUTE[ICD9: 461.9] June APPIAH DO [facility] CPT-4: 05734 03/04/2014 ([id number]) OFFICE/OUTPATIENT VISIT EST Diagnosis: VACCINE FOR TDAP[ICD10: Z23] María Elena APPIAH DO [facility] CPT-4: 44386 02/27/2014 ([id number]) OFFICE/OUTPATIENT VISIT EST Diagnosis: Seborrheic keratoses, inflamed[ICD9: 702.11] Diagnosis: ACTINIC KERATOSIS[ICD9: 702.0] Diagnosis: INSOMNIA NOS[ICD9: 780.52] María Elena KENTER [employer] [facility] CPT-4: 56573 01/13/2014 OFFICE/OUTPATIENT VISIT EST 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] Diagnosis: ALLERGIC RHINITIS[ICD9: 477.9] Diagnosis: Serous otitis media[ICD9: 381.4] María Elena APPIAH [facility] CPT-4: 40555 12/24/2013 ([id number]) OFFICE/OUTPATIENT VISIT EST Diagnosis: SINUSITIS, ACUTE[ICD9: 461.9] Diagnosis: ALLERGIC RHINITIS[ICD9: 477.9] 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] María Elena APPIAH [facility] CPT-4: 66705 11/12/2013 ([id number]) OFFICE/OUTPATIENT VISIT EST Diagnosis: ALLERGIC RHINITIS[ICD9: 477.9] Diagnosis: SINUSITIS, ACUTE[ICD9: 461.9] María Elena APPIAH [facility] CPT-4: 18798 10/21/2013 ([id number]) OFFICE/OUTPATIENT VISIT EST Diagnosis: ASYMPTOMATIC VARICOSE VEINS[ICD9: 454.9] Diagnosis: INSOMNIA NOS[ICD9: 780.52] María Elena [facility] CPT-4: 97215 09/22/2013 OFFICE/OUTPATIENT VISIT EST Diagnosis: SINUSITIS, ACUTE[ICD9: 461.9] June APPIAH [facility] CPT-4: 09392 08/27/2013 ([id number]) OFFICE/OUTPATIENT VISIT EST Diagnosis: CEPHALGIA[ICD9: 784.0] Diagnosis: CEPHALGIA, TENSION[ICD9: 307.81] 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] María Elena APPIAH [facility] CPT-4: 05518 08/04/2013 ([id number]) OFFICE/OUTPATIENT VISIT EST Diagnosis: Cervicalgia[ICD9: 723.1] Diagnosis: SPASM OF MUSCLE[ICD9: 728.85] Diagnosis: CEPHALGIA, TENSION[ICD9: 307.81] María Elena [facility] CPT-4: 80214 07/23/2013 ([id number]) OFFICE/OUTPATIENT VISIT EST 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] Diagnosis: ALLERGIC RHINITIS[ICD9: 477.9] María Elena APPIAH [facility] CPT-4: 35143 06/23/2013 ([id number]) OFFICE/OUTPATIENT VISIT EST Diagnosis: ALLERGIC RHINITIS[ICD9: 477.9] Diagnosis: ACUTE SEROUS OTITIS MEDIA[ICD9: 381.01] 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] María Elena APPIAH [facility] CPT-4: 24867 05/26/2013 ([id number]) OFFICE/OUTPATIENT VISIT EST Diagnosis: HYPERTENSION[ICD9: 401.9] Diagnosis: EDEMA[ICD9: 782.3] Diagnosis: Serous otitis media[ICD9: 381.4] María Elena [facility] CPT-4: 18747 04/16/2013 ([id number]) OFFICE/OUTPATIENT VISIT EST Diagnosis: SINUSITIS, ACUTE[ICD9: 461.9] Diagnosis: ALLERGIC RHINITIS[ICD9: 477.9] Diagnosis: EDEMA[ICD9: 782.3] Diagnosis: Thyromegaly[ICD9: 240.9] Diagnosis: MALAISE AND FATIGUE[ICD9: 780.79] María Elena Lopez AlanJj TD [facility] CPT-4: 98038 03/05/2013 ([id number]) OFFICE/OUTPATIENT VISIT EST Diagnosis: PAIN, LOWER BACK[ICD9: 724.2] Diagnosis: SPASM OF MUSCLE[ICD9: 728.85] María Elena JUARES AlanJj TD [facility] CPT-4: 63041 12/23/2012 OFFICE/OUTPATIENT VISIT EST Diagnosis: Low back pain[ICD9: 724.2] Lashawn Hicks KRISTYN [facility] CPT-4: 69779 12/16/2012 ([id number]) OFFICE/OUTPATIENT VISIT EST Diagnosis: PAIN, LOWER BACK[ICD9: 724.2] Diagnosis: SCIATICA[ICD9: 724.3] Diagnosis: Lumbar herniated disc[ICD9: 722.10] María Elena COLON AlanJj TD [facility] CPT-4: 06643 12/09/2012 ([id number]) OFFICE/OUTPATIENT VISIT EST Diagnosis: PAIN, LOWER BACK[ICD9: 724.2] Diagnosis: SCIATICA[ICD9: 724.3] Diagnosis: LUMBAR DISC DISPLACEMENT[ICD9: 722.10] María Elena MARIN AlanJj TD [facility] CPT-4: 69684 12/04/2012 OFFICE/OUTPATIENT VISIT EST Diagnosis: Pneumonia[ICD9: 486] Mary JUARES AlanJj TD [facility] CPT-4: 97321 11/22/2012 ([id number]) OFFICE/OUTPATIENT VISIT EST Diagnosis: PNEUMONIA, ORGANISM[ICD9: 486] Diagnosis: Exacerbation of RAD (reactive airway disease)[ICD9: 493.92] María Elena JUARES AlanJj TD [facility] CPT-4: 47662 11/21/2012 OFFICE/OUTPATIENT VISIT EST Diagnosis: HYPERTENSION[ICD9: 401.9] Diagnosis: Cephalgia[ICD9: 784.0] Lashawn Hicks SEAMUSDAWN [facility] CPT-4: 13155 10/29/2012 ([id number]) OFFICE/OUTPATIENT VISIT EST Diagnosis: MALAISE AND FATIGUE[ICD9: 780.79] Diagnosis: ARTHRALGIA-MULTIPLE SITES[ICD9: 719.49] María Elena APPIAH [facility] CPT-4: 57396 10/14/2012 ([id number]) OFFICE/OUTPATIENT VISIT EST Diagnosis: URINARY FREQUENCY[ICD9: 788.41] María Elena APPIAH DO [facility] CPT-4: 71584 09/27/2012 ([id number]) OFFICE/OUTPATIENT VISIT EST Diagnosis: MALAISE AND FATIGUE[ICD9: 780.79] Diagnosis: ARTHRALGIA-MULTIPLE SITES[ICD9: 719.49] María Elena APPIAH [facility] CPT-4: 16594 09/25/2012 ([id number]) OFFICE/OUTPATIENT VISIT EST Diagnosis: SINUSITIS, ACUTE[ICD9: 461.9] 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] María Elena APPIAH [facility] CPT-4: 15987 08/29/2012 OFFICE/OUTPATIENT VISIT EST Diagnosis: ACTINIC KERATOSIS[ICD9: 702.0] Diagnosis: Inflamed seborrheic keratosis[ICD9: 702.11] Diagnosis: Skin cancer of face[ICD9: 173.31] Diagnosis: HYPERTENSION[ICD9: 401.9] María Elena SEYMOUR [facility] CPT-4: 52605 08/12/2012 ([id number]) OFFICE/OUTPATIENT VISIT EST Diagnosis: ARTHRALGIA-MULTIPLE SITES[ICD9: 719.49] Diagnosis: GOUT[ICD9: 274.9] Diagnosis: HYPERTENSION[ICD9: 401.9] Diagnosis: Tachycardia[ICD9: 785.0] María Elena BRADFORD [facility] CPT-4: 76366 05/06/2012 ([id number]) OFFICE/OUTPATIENT VISIT EST Diagnosis: INSOMNIA NOS[ICD9: 780.52] María Elena [facility] CPT-4: 16203 04/03/2012 ([id number]) OFFICE/OUTPATIENT VISIT EST Diagnosis: INSOMNIA NOS[ICD9: 780.52] Diagnosis: HYPERTENSION[ICD9: 401.9] Diagnosis: MIGRAINE NOS/NOT INTRCBL[ICD9: 346.90] María Elena CulverJARED ValdesJj TD [facility] CPT-4: 69644 03/19/2012 ([id number]) OFFICE/OUTPATIENT VISIT EST Diagnosis: CELLULITIS[ICD9: 682.9] Diagnosis: Ankle pain[ICD9: 719.47] Diagnosis: HYPERTENSION[ICD9: 401.9] María Elena JUARES AlanJj SEAMUS [facility] CPT-4: 45295 02/20/2012 ([id number]) OFFICE/OUTPATIENT VISIT EST Diagnosis: MIGRAINE NOS/NOT INTRCBL[ICD9: 346.90] Diagnosis: Vomiting[ICD9: 787.03] María Elena JUARES AlanJj CIRO Bazzi [facility] CPT-4: 70990 01/30/2012 ([id number]) OFFICE/OUTPATIENT VISIT EST Diagnosis: EDEMA[ICD9: 782.3] Diagnosis: HYPERTENSION[ICD9: 401.9] Diagnosis: ALLERGIC RHINITIS[ICD9: 477.9] Diagnosis: ARTHRALGIA-MULTIPLE SITES[ICD9: 719.49] María Elena REED AlanJj TD [facility] CPT-4: 69231 01/24/2012 ([id number]) OFFICE/OUTPATIENT VISIT EST Diagnosis: SPASM OF MUSCLE[ICD9: 728.85] Diagnosis: Thoracic back pain[ICD9: 724.1] Diagnosis: Cervical pain[ICD9: 723.1] María Elena Hicks KRISTYN [facility] CPT-4: 72348 01/10/2012 OFFICE/OUTPATIENT VISIT EST Diagnosis: PAIN, LOWER BACK[ICD9: 724.2] Diagnosis: LUMBAR DISC DISPLACEMENT[ICD9: 722.10] María Elena MARIN AlanJj TD [facility] CPT-4: 43238 12/11/2011 OFFICE/OUTPATIENT VISIT EST Diagnosis: MIGRAINE NOS/NOT INTRCBL[ICD9: 346.90] Diagnosis: SINUSITIS, ACUTE[ICD9: 461.9] María Elena J[facility]ARES [facility]Jj [facility] CPT-4: 21257 11/09/2011 OFFICE/OUTPATIENT VISIT EST Diagnosis: MIGRAINE NOS/NOT INTRCBL[ICD9: 346.90] Diagnosis: LYMPHADENOPATHY[ICD9: 785.6] María Elena Waymindimaryjane ELLISMARÍA ELENA AlanJj TD [facility] CPT-4: 34696 09/13/2011 OFFICE/OUTPATIENT VISIT EST Diagnosis: MALAISE AND FATIGUE[ICD9: 780.79] Diagnosis: ARTHRALGIA-MULTIPLE SITES[ICD9: 719.49] María Elena Seamusdawn MONTERO APARNAALCIDES AlanJj TD [facility] CPT-4: 54485 08/31/2011 OFFICE/OUTPATIENT VISIT EST Diagnosis: SINUSITIS, ACUTE[ICD9: 461.9] María Elena Seamusdawn MARÍA ELENA AlanJj TD [facility] CPT-4: 40738 07/20/2011 OFFICE/OUTPATIENT VISIT EST Diagnosis: HYPERTENSION[ICD9: 401.9] Diagnosis: PAIN, LOWER BACK[ICD9: 724.2] Diagnosis: SPASM OF MUSCLE[ICD9: 728.85] María Elena Seamusdawn MARÍA ELENA AlanJj TD [facility] CPT-4: 67427 07/06/2011 OFFICE/OUTPATIENT VISIT EST Diagnosis: MIGRAINE NOS/NOT INTRCBL[ICD9: 346.90] Diagnosis: HYPERTENSION[ICD9: 401.9] María Elena Seamusmindimaryjane MARÍA ELENA AlanJj SEAMUS [facility] CPT-4: 80803 05/22/2011 OFFICE/OUTPATIENT VISIT EST Diagnosis: SINUSITIS, ACUTE[ICD9: 461.9] Diagnosis: MIGRAINE NOS/NOT INTRCBL[ICD9: 346.90] Diagnosis: Dehydration[ICD9: 276.51] Diagnosis: Vomiting[ICD9: 787.03] María Elena JUARES AlanJj SEAMUSGALINA Bazzi [facility] CPT-4: 79104 05/09/2011 ([id number]) OFFICE/OUTPATIENT VISIT EST María Elena ISAAC TANIA ValdesJj TD [facility] CPT-4: 04985 02/14/2011 ([id number]) OFFICE/OUTPATIENT VISIT EST María Elena ISAAC AbiolaJARED AlanJj TD [facility] CPT-4: 45734 02/03/2011 ([id number]) OFFICE/OUTPATIENT VISIT EST María Elena ISAAC [facility] CPT-4: 97885 01/31/2011 ([id number]) OFFICE/OUTPATIENT VISIT EST María Elena MONTEROQ [facility] CPT-4: 23349 01/25/2011 ([id number]) OFFICE/OUTPATIENT VISIT EST María Elena ISAAC [facility] CPT-4: 57569 01/18/2011 ([id number]) OFFICE/OUTPATIENT VISIT EST María Elena ISAAC [facility] CPT-4: 64773 11/29/2010 ([id number]) OFFICE/OUTPATIENT VISIT, EST María Elena BRAUNLINE [facility] CPT-4: 40629 10/10/2010 ([id number]) OFFICE/OUTPATIENT VISIT, EST María Elena BRAUNLINE [facility] CPT-4: 42882 06/07/2010 ([id number]) OFFICE/OUTPATIENT VISIT, EST María Elena MONTERO QUELINE [facility] CPT-4: 79047 04/27/2010 ([id number]) OFFICE/OUTPATIENT VISIT, EST María Elena MONTERO [facility] CPT-4: 83504 04/05/2010 ([id number]) OFFICE/OUTPATIENT VISIT, EST María Elena MONTERO [facility] CPT-4: 08963 03/09/2010 ([id number]) OFFICE/OUTPATIENT VISIT, EST María Elena REED [facility] CPT-4: 41791 03/03/2010 ([id number]) OFFICE/OUTPATIENT VISIT, EST María Elena REED [facility] CPT-4: 11898 01/17/2010 ([id number]) PREV VISIT, EST, AGE 40-64 María Elena COLEMAN [facility] CPT-4: 41270 12/27/2009 Plan of Care Planned Activity Notes Codes Status Date Visit Diagnosis Plan: Ingrowing nail Discussion: lilyu [...] ICD-10 : E11.65 10/07/2019 Appointment: Kathleen Zuniga [address] [place], [place] [phone] [place] OFFICE SURGERY 10/07/2019 Visit Diagnosis Plan: [...] 09/30/2019 Appointment: María Elena Appiah WPtel: [phone] [facility] [place] CHECK UP 09/30/2019 Patient Education: Premarin- [employer] Coupon [id number] https://www.[place].[employer]/samplemi/resources/getResource/61/[email or web address]-[email or web address] Completed 09/30/2019 Appointment: María Elena Appiah WPtel: [address] [place], [place] [phone] [place] LAB 09/29/2019 Appointment: María Elena Appiah WPtel: [address] [place], [place] [phone] [place] Won't have the new insurance till [...] 05/28/2019 Appointment: María Elena Appiah WPtel: [address] [place] [address] [place] FOLLOW UP 05/28/2019 Appointment: María Elena Appiah WPtel: [address] [place], [place] [address] US BP CHECK 05/19/2019 Visit Diagnosis Plan: [...] Z79.890 01/22/2019 Appointment: María Elena Appiah WPtel: [address] [place] [address] [place] FOLLOW UP 01/22/2019 Patient Education: estradiol- [employer] Coupon [id number] https://www.[employer]/[place]/resources/getResource/61/[email or web address] Completed 01/22/2019 Appointment: María Elena Appiah WPtel: [address] [place] [address] [place] CANCELED 01/20/2019 Appointment: María Elena Appiah WPtel: [address] [place] [address] US LM NO SHOW 01/06/2019 Appointment: María Elena Appiah WPtel: [address] [place] [address] US CANCELED 10/17/2018 Appointment: María Elena Appiah WPtel: [address] [place] [address] US BP CHECK 10/09/2018 Visit Diagnosis Plan: [...] I10 09/30/2018 Appointment: María Elena Appiah WPtel: [address] [place] [address] US FOLLOW UP 09/30/2018 Visit Diagnosis Plan: [...] F51.01 08/27/2018 Appointment: María Elena Appiah WPtel: [address] [place], [place] [phone] ACUTE ILLNESS 08/27/2018 Appointment: María Elena Appiah WPtel: [address] [place], [place] [phone] [place] Patient stated she went out to [...] Tyle... 08/09/2018 Appointment: María Elena Appiah WPtel: [address] [place], [place] [phone] ACUTE ILLNESS 08/09/2018 Appointment: María Elena Appiah WPtel: [address] [place], [place] [phone] NO SHOW 08/08/2018 Visit Diagnosis Plan: Anxiety [...] B35.4 07/22/2018 Appointment: María Elena Appiah WPtel: [phone] [facility] ACUTE ILLNESS 07/22/2018 Appointment: María Elena Appiah WPtel: [phone] [facility] [place] INJECTION 06/19/2018 Patient Education: Patient Medication [...] ICD-10 : L03.031 06/17/2018 Appointment: Kathleen Zuniga [address] [place] [address] ACUTE ILLNESS 06/17/2018 Patient Education: Patient Medication [...] ICD-10 : B02.9 05/16/2018 Appointment: Kathleen Zuniga [address] [place], [place] [address] [address] ACUTE ILLNESS 05/16/2018 Patient Education: Patient Medication [...] : L03.115 03/20/2018 Appointment: Kathleen Zuniga [address] [id number] FOLLOW UP 03/20/2018 Patient Education: Patient Medication [...] : L03.115 03/18/2018 Appointment: Kathleen Zuniga [address] [facility] FOLLOW UP 03/18/2018 Patient Education: Patient Medication [...] : L03.115 03/15/2018 Appointment: Kathleen Zuniga [address] [phone] ACUTE ILLNESS 03/15/2018 Patient Education: Patient Medication [...] ICD-10 : J01.90 02/11/2018 Appointment: Kathleen Zuniga [address] [place], [place] [phone] ACUTE ILLNESS 02/11/2018 Patient Education: Patient Medication Summary Completed 02/11/2018 Appointment: María Elena Appiah WPtel: [phone] [facility] INJECTION 02/01/2018 Patient Education: Patient Medication Summary [...] : M51.16 01/30/2018 Appointment: Kathleen [facility]iga [facility] ACUTE ILLNESS 01/30/2018 Patient Education: Patient Medication [...] E11.65 12/18/2017 Appointment: María Elena Appiah WPtel: [address] [place] [address] Annual Well Visit 12/18/2017 Patient Education: Patient Medication Summary Completed 12/18/2017 Care Plan: Referral Order SNOMED-CT : [id number] Pending 12/18/2017 Appointment: María Elena Appiah WPtel: [address] [place] [address] INJECTION 12/10/2017 Patient Education: Patient Medication Summary [...] ICD-10 : L03.031 12/07/2017 Appointment: Kathleen Zuniga [address] [place] [address] ACUTE ILLNESS 12/07/2017 Patient Education: Patient Medication [...] : J01.00 10/08/2017 Appointment: [facility]iga [address] [facility] [facility] 10/08/2017 Patient Education: Patient Medication Summary Completed 10/08/2017 Appointment: María Elena Appiah WPtel: [phone] [facility] [place] INJECTION 09/21/2017 Patient Education: Patient Medication [...] : R06.83 09/20/2017 Appointment: Kathleen Zuniga [address] [facility] ACUTE ILLNESS 09/20/2017 Patient Education: Patient Medication [...] : L60.0 08/29/2017 Appointment: Kathleen Zuniga [address] [facility] OFFICE SURGERY 08/29/2017 Patient Education: Patient Medication Summary Completed 08/29/2017 Visit Diagnosis Plan: Actinic keratosis Discussion: Cr yotherapy as above ICD-9 : 702.0 ICD-10 : L57.0 08/01/2017 Appointment: María Elena Appiahtel: [address] [place] [address] OFFICE SURGERY 08/01/2017 Patient Education: Patient Medication Summary Completed 08/01/2017 Appointment: María Elena Appiahtel: [address] [place] [address] PATIENT THOUGHT APPOINTMENT WAS TOMORROW 07/26/17 CALLED 15 MINUTES BEFORE APPT TO SAY SHE DIDN'T HAVE ANYONE TO COVER HER BUSINESS AND WOULD NOT MAKE IT NO SHOW 07/25/2017 Visit Diagnosis Plan: Cellulitis of left toe Discussio n: Clindamycin and notify if worsening or persistis ICD-9 : 681.10 ICD-10 : L03.032 07/19/2017 Appointment: María Elena Appiah WPtel: [address] [place] [address] MEDICATION REVIEW 07/19/2017 Patient Education: Patient Medication Summary Completed 07/19/2017 Appointment: María Elena Appiah WPtel: [address] [place], [place] [phone] [place] CANCELED 07/04/2017 Visit Diagnosis Plan: Generalized hyperhidrosis Discus ian: CBC, CMP, TSH, free T4 ordered to assess. will review labs. ICD-9 : 780.8 ICD-10 : R61 06/27/2017 Visit Diagnosis Plan: Chronic sinusitis, unspecified D iscussion: Referral sent to dr. albarado in [place] per patient request. patient has been treated multiple times for sinus infections with no recovery. patient was seen by dr sanchez in the past with no interventions. patient has deviated septum which may be affecting her sinuses. 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, including hip Discussion: Shave removal of above lesio n--sent to pathology ICD-9 : 216.7 ICD-10 : D23.72 01/24/2017 Appointment: María Elena Appiah WPtel: [address] [place] [address] 01/23 confirmed ~ OFFICE SURGERY 01/24/2017 Patient Education: Patient Medication Summary Completed 01/24/2017 Appointment: Loan Sánchez [address] [place] [address] 01/09 rescheduled~sl RESCHEDULED 01/15/2017 Visit Diagnosis Plan: [...] L81.4 12/13/2016 Appointment: María Elena Appiah WPtel: [address] [place] [address] 12/12 confirmed ~ MEDICATION REVIEW 12/13/2016 Patient Education: Patient Medication Summary Completed 12/13/2016 Appointment: María Elena Appiah WPtel: [address] [place] [address] rescheduled for 12/13/16 at 11am RESCHEDULED 0 12/06/2016 Appointment: María Elena Appiah WPtel: [address] [place], [place] [id number] US CANCELED 11/23/2016 Patient Education: Patient Medication [...] F51.01 11/01/2016 Appointment: María Elena Appiah WPtel: [address] [place], [place] [phone] 10/31 lm `sl 11/01 lm`sl MEDICATION REVIEW 017 Patient Education: Patient Medication Summary Completed 11/01/2016 Referral: Canelo Overton WPtel: [address] [id number] [place] Referral Initiated 10/30/2016 Visit Diagnosis Plan: [...] Z01.419 10/17/2016 Appointment: María Elena Appiah WPtel: [id number] 10/16 confirmed ~sl PAP 10/17/2016 Patient Education: Patient Medication Summary Completed 10/17/2016 Care Plan: MAMMOGRAM SCREENING LOINC : 2 6347-5 Pending 10/17/2016 Visit Diagnosis Plan: Other seasonal allergic rhinitis Discussion: Decadron/Garamycin Nasal [place] Mix Too soon for steroid Retry zyrtec 10mg daily ICD-9 : 477.9 ICD-10 : J30.2 10/10/2016 Appointment: María Elena Appiah WPtel: [phone] [id number] US FOLLOW UP 10/10/2016 Patient Education: Patient Medication Summary Completed 10/10/2016 Appointment: María Elena Appiah WPtel: [address] [place], [place] [id number] 10/02 reschedule `sl RESCHEDULED 10/02/2016 Visit Plan: See surgery for removal of n ew left arm lesion and right foot lesion Lyrica to use next month for left arm paresthesias Continue current meds Discussed sunscreen/sunblock combo 09/19/2016 Appointment: María Elena Appiah WPtel: [address] [place], [place] [id number] 09/18 confirmed ~ FOLLOW UP 09/19/2016 Patient Education: Patient Medication Summary Completed 09/19/2016 Patient Education: Patient Medication Summary Completed 09/18/2016 Care Plan: MAMMOGRAM BOTH BREASTS LOINC : 53292-8 Pending 09/18/2016 Visit Plan: Discussed that needs [...] sinuses 08/24/2016 Appointment: María Elena Appiah WPtel: [address] [place], [place] [phone] ACUTE ILLNESS 08/24/2016 Patient Education: Patient Medication Summary Completed 08/24/2016 Patient Education: Patient Medication Summary Completed 08/23/2016 Care Plan: MAMMOGRAM SCREENING LOINC : 2 6347-5 Pending 08/23/2016 Visit Plan: Finish doxycycline Add Breo 100/25 1 p BID for 2 weeks If not improving within next 2 days will get CXR 08/16/2016 Appointment: María Elena Appiah WPtel: [address] [place], [place] [phone] ACUTE ILLNESS 08/16/2016 Patient Education: Patient Medication Summary Completed 08/16/2016 Visit Plan: Supportive care. Rest, Fluid s, Tylenol/Motrin prn fever or bodyaches. Notify if worsening symptoms. Doxycyline and Prednisone 08/10/2016 Appointment: María Elena Appiah WPtel: [address] [place] [address] 08/09 lm`sl....confirmed-sp FOLLOW UP 09/2015 Patient Education: Patient Medication Summary Completed 08/10/2016 Visit Plan: Saline nasal flushes prn. Ty lenol/Motrin prn headache. Notify if persists/symptoms worsening. Dexamethasone 8mg IM today May use coricedan and mucinex 08/02/2016 Appointment: María Elena Appiah WPtel: [address] [place] [address] ACUTE ILLNESS 08/02/2016 Patient Education: Patient Medication Summary Completed 08/02/2016 Visit Plan: Cryotherapy as above and lef t forearm lesion removal as above with 5-0 punch biopsy and sent to path Return in 10 days for suture removal 08/01/2016 Appointment: María Elena Appiah WPtel: [address] [place] [address] 07/31 confirmed`~sl OFFICE SURGERY 08/01/2016 Patient Education: Patient Medication Summary Completed 08/01/2016 Visit Plan: Stop clindamycin Check CBC, CMP, ESR now/STAT 07/27/2016 Appointment: María Elena Appiah WPtel: [address] [place] [address] ACUTE ILLNESS 07/27/2016 Patient Education: Patient Medication Summary Completed 07/27/2016 Visit Plan: Update lab and check ABIs to start with Will likely need cardiology evaluation to rule out PVD Clindamycin for 10 days Daily yogurt or probiotic Will return for removal of left arm lesions 07/20/2016 Appointment: María Elena Appiah WPtel: [address] [place] [address] ACUTE ILLNESS 07/20/2016 Patient Education: Patient Medication Summary Completed 07/20/2016 Patient Education: Patient Medication Summary Completed 07/20/2016 Care Plan: MAMMOGRAM BOTH BREASTS LOINC : 17465-1 Pending 07/20/2016 Care Plan: US EXAM CHEST LOINC : 49318-6 Pending 07/20/2016 Visit Plan: Wound culture collected from left great toe Appearance is somewhat staph like Rx as above Wound cleanser and skin care reviewed May need to add oral antibiotic if sores do not heal or continue to reoccur 07/06/2016 Appointment: Loan Sánchez [address] [place] [address] ACUTE ILLNESS 07/06/2016 Patient Education: Patient Medication Summary Completed 07/06/2016 Appointment: María Elena Appiah WPtel: [address] [place] [address] [place] INJECTION 05/25/2016 Patient Education: Patient Medication Summary Completed 05/25/2016 Visit Plan: Saline nasal flushes prn. Ty lenol/Motrin prn headache. Notify if persists/symptoms worsening. Dexamethasone and Rocephin given 04/26/2016 Appointment: María Elena Appiah WPtel: [address] [place] [address] ACUTE ILLNESS 04/26/2016 Patient Education: Patient Medication Summary Completed 04/26/2016 Visit Plan: Check CBC, CMP, TSH, FreeT4, HbA1C, estradiol, lipids in AM 03/02/2016 Appointment: María Elena Appiah WPtel: [address] [place] [address] 03/01 lm~sl ACUTE ILLNESS 03/02/2016 Patient Education: Patient Medication Summary Completed 03/02/2016 Visit Plan: Exam is nearly normal Needs to be taking daily antihistamine Would prefer to use oral steroids instead of shot but patient insist that oral steroids cause horrible headaches for her Will given kenalog IM instead 02/09/2016 Appointment: Loan Sánchez [address] [place] [address] ACUTE ILLNESS 02/09/2016 Patient Education: Patient Medication Summary Completed 02/09/2016 Visit Plan: Culture urine Macrobid DC xa nax Trial of Ativan 1mg q HS 01/24/2016 Appointment: María Elena Appiah WPtel: [address] [place] [address] ACUTE ILLNESS 01/24/2016 Patient Education: Patient Medication Summary Completed 01/24/2016 Visit Plan: No steroid or rocephin injec tion warranted Can have oral prednisone Continue current home regimen Needs to follow up with Dr Sanchez if problems persist 12/23/2015 Appointment: Loan Sánchez [address] [place] [address] ACUTE ILLNESS 12/23/2015 Patient Education: Patient Medication Summary Completed 12/23/2015 Visit Plan: Saline nasal flushes prn. Ty lenol/Motrin prn headache. Notify if persists/symptoms worsening. Kenalog 40mg IM today 12/08/2015 Appointment: María Elena Appiah WPtel: [address] [place] [address] 12/06 confirmed~ ACUTE ILLNESS 12/08/2015 Patient Education: Patient Medication Summary Completed 12/08/2015 Appointment: María Elena Appiah WPtel: [address] [place] [address] ACUTE ILLNESS 11/18/2015 Patient Education: Patient Medication Summary Completed 10/11/2015 Appointment: María Elena Appiah WPtel: [address] [place] [address] [place] INJECTION 10/07/2015 Patient Education: Patient Medication Summary Completed 10/07/2015 Visit Plan: Check renal arterial doppler s and ECHO Change amlodopine to lotrel 5/20mg q HS Will need stress test as well Check CMP, uric acid, ESR 10/06/2015 Appointment: María Elena Appiah WPtel: [address] [place] [address] ACUTE ILLNESS 10/06/2015 Patient Education: Patient Medication Summary Completed 10/06/2015 Patient Education: [facility] - Saving [employer] - Amlodipine Besylate - 18-64 - Dynamic Portal ID Completed 10/06/2015 Appointment: María Elena Appiah WPtel: [address] [place] [address] FOLLOW UP 09/22/2015 Visit Plan: Cephalexin 500 mg PO bid Mery ly topical Mupirocin to lesions on left lateral neck and face Follow-up in one week. Sooner if symptoms worsen 09/14/2015 Appointment: June Flores WPtel: [address] [place] [address] ACUTE ILLNESS 09/14/2015 Patient Education: Patient Medication Summary Completed 09/14/2015 Visit Plan: Change bystolic to bedtime d osing and amlodopine to morning dosing Cryotherapy as above to AKs 09/07/2015 Appointment: María Elena Appiah WPtel: [address] [place] [address] 09/06 appointment made and confirmed ~sl FOLLOW UP 09/07/2015 Patient Education: Patient Medication Summary Completed 09/07/2015 Visit Plan: Increase bystolic back to 20 mg daily but will split and take 10mg in AM and 10mg in PM Stress Reducers 08/18/2015 Appointment: María Elena Appiah WPtel: [address] [place] [address] 08/17/15 appt confirmed cn ACUTE ILLNESS 08/18 Patient Education: Patient Medication Summary Completed 08/18/2015 Appointment: María Elena Appiah WPtel: [address] [place] [address] BP CHECK 07/07/2015 Patient Education: Patient Medication Summary Completed 07/07/2015 Appointment: María Elena Appiah WPtel: [address] [place] [address] BP CHECK 06/24/2015 Patient Education: Patient Medication Summary Completed 06/24/2015 Appointment: María Elena Appiah WPtel: [address] [place] [address] BP CHECK 06/21/2015 Patient Education: Patient Medication Summary Completed 06/21/2015 Visit Plan: Lab discussed Continue curre nt meds and lifestyle modification Recheck lab in 6mos 06/16/2015 Appointment: María Elena Appiah WPtel: [address] [place], [place] [phone] 06/15 confirmed FOLLOW UP 06/16/2015 Patient Education: Patient Medication Summary Completed 06/16/2015 Patient Education: Patient Medication Summary Completed 06/15/2015 Visit Plan: Increase cymbalta to 60mg q HS Keep clonidine at current dose Recheck 2weeks Change xanax to klonopin 06/02/2015 Appointment: María Elena Appiah WPtel: [address] [place] [address] 06/02 lm FOLLOW UP 06/02/2015 Patient Education: Patient Medication Summary Completed 06/02/2015 Appointment: María Elena Appiah WPtel: [address] [place] [address] ACUTE ILLNESS 05/24/2015 Visit Plan: Increase clonidine to 0.2mg q HS Add cymbalta 30mg q HS Recheck 2weeks Stress Reducers Check fasting lab Discussed sleep study 05/20/2015 Appointment: María Elena Appiah WPtel: [address] [place] [address] ACUTE ILLNESS 05/20/2015 Patient Education: Patient Medication Summary Completed 05/20/2015 Patient Education: [facility] - Saving [employer] - Cymbalta - 18-64 - Dynamic Portal ID Completed 05/20/2015 Appointment: María Elena Appiah WPtel: [address] [place] [address] BP CHECK 05/19/2015 Patient Education: Patient Medication Summary Completed 05/19/2015 Visit Plan: Topical Bactroban alternatin g with topical betamethasone Recheck 2weeks 05/10/2015 Appointment: María Elena Appiah WPtel: [address] [place] [address] 05/07 vm cn...05/07 appt confirmed OFFICE SURGER Y 05/10/2015 Patient Education: Patient Medication Summary Completed 05/10/2015 Referral: Patrick Chandler WPtel: [address] [place] [phone] [place] Referral Initiated 05/04/2015 Visit Plan: Saline nasal flushes prn. Ty lenol/Motrin prn headache. Notify if persists/symptoms worsening. Depomedrol 40mg IM today 03/16/2015 Appointment: María Elena Appiah WPtel: [address] [place], [place] [phone] ACUTE ILLNESS 03/16/2015 Patient Education: Patient Medication Summary Completed 03/16/2015 Appointment: María Elena Appiah WPtel: [address] [place] [address] ER Follow UP 03/09/2015 Visit Plan: Cryotherapy to lesions as ab ove 10/27/2014 Appointment: María Elena Appiah WPtel: [address] [place] [address] OFFICE SURGERY 10/27/2014 Patient Education: Patient Medication Summary Completed 10/27/2014 Appointment: June Flores WPtel: [address] [place] [address] ACUTE ILLNESS 09/11/2014 Patient Education: Patient Medication Summary Completed 09/11/2014 Visit Plan: Lab discussed Lipitor 10mg d aily Coenzyme Q-10 400mg daily Vitamin D3 5000u daily Recheck lipids with LFTs in 3mos then fwup 08/31/2014 Appointment: María Elena Appiah WPtel: [address] [place], [place] [phone] 08/28 voicemail FOLLOW UP 08/31/2014 Patient Education: Patient Medication Summary Completed 08/31/2014 Appointment: María Elena Appiah WPtel: [address] [place], [place] [phone] [place] LAB 08/27/2014 Appointment: María Elena Appiah WPtel: [address] [place], [place] [phone] [place] LAB 08/27/2014 Patient Education: Patient Medication Summary Completed 08/27/2014 Appointment: María Elena Appiahl: [address] [place] [address] ACUTE ILLNESS 07/23/2014 Appointment: María Elena Appiah WPtel: [address] [place] [address] ACUTE ILLNESS 07/21/2014 Patient Education: Patient Medication Summary Completed 07/21/2014 Visit Plan: Kenalog 40mg IM today Contin ue narendra and singulair Add Flonase 07/15/2014 Appointment: María Elena Appiah WPtel: [address] [place] [address] ACUTE ILLNESS 07/15/2014 Appointment: María Elena Appiah WPtel: [address] [place] [address] ACUTE ILLNESS 07/15/2014 Patient Education: Patient Medication Summary Completed 07/15/2014 Visit Plan: Will do metolazone 2.5mg prn with 6 potassium and see if causes as severe cramping Trial of of seroquel XR 50mg q PM with evening meal and let us know how works 05/18/2014 Appointment: María Elena Appiah WPtel: [address] [place] [address] 05/15 left message FOLLOW UP 05/18/2014 Patient Education: Patient Medication Summary Completed 05/18/2014 Appointment: María Elena Appiah WPtel: [address] [place] [address] LAB 05/14/2014 Patient Education: Patient Medication Summary Completed 05/14/2014 Appointment: María Elena Appiah WPtel: [address] [place], [place] [phone] [place] INJECTION 04/22/2014 Visit Plan: Rocephin and Kenalog today a nd finish abx given from urgent care 04/21/2014 Appointment: María Elena Appiah WPtel: [address] [place] [address] [place] INJECTION 04/21/2014 Patient Education: Patient Medication Summary Completed 04/21/2014 Appointment: June Flores WPtel: [address] [place] [address] ACUTE ILLNESS 03/04/2014 Patient Education: Patient Medication Summary Completed 03/04/2014 Appointment: María Elena Appiah WPtel: [address] [place] [address] INJECTION 02/27/2014 Patient Education: Patient Medication Summary Completed 02/27/2014 Visit Plan: Cryotherapy as above to all lesions Patient wants to try no meds for insomnia for a while and see how goes 01/13/2014 Appointment: María Elena Appiah WPtel: [address] [place] [address] OFFICE SURGERY 01/13/2014 Patient Education: Patient Medication Summary Completed 01/13/2014 Visit Plan: Stop Melatonin Stop Soma Tri al of trazadone 75mg q HS See ENT for possible tubes as has had chronic ETD and serous otitis media with numerous steroids 12/24/2013 Appointment: María Elena Appiah WPtel: [address] [place] [address] ACUTE ILLNESS 12/24/2013 Patient Education: Patient Medication Summary Completed 12/24/2013 Visit Plan: Saline nasal flushes prn. Ty lenol/Motrin prn headache. Notify if persists/symptoms worsening. 11/12/2013 Appointment: María Elena Appiah WPtel: [address] [place] [address] ACUTE ILLNESS 11/12/2013 Patient Education: Patient Medication Summary Completed 11/12/2013 Appointment: María Elena Appiah WPtel: [address] [place] [address] ACUTE ILLNESS 10/21/2013 Patient Education: Patient Medication Summary Completed 10/21/2013 Visit Plan: Sleep hygiene and sleep rout ine Melatonin 10mg q HS Support stockings and observe 09/22/2013 Appointment: María Elena Appiah: [address] [place], [place] [phone] ACUTE ILLNESS 09/22/2013 Patient Education: Patient Medication Summary Completed 09/22/2013 Appointment: June Flores WPtel: [address] [place], [place] [phone] ACUTE ILLNESS 08/27/2013 Patient Education: Patient Medication Summary Completed 08/27/2013 Visit Plan: Proceed with CT scan of head /neck Proceed with occipital nerve injections Butrans 20mcg patch weekly until can get into see Dr. Mcdonough for injections 08/04/2013 Appointment: María Elena Appiah WPtel: [address] [place] [address] FOLLOW UP 08/04/2013 Patient Education: Patient Medication Summary Completed 08/04/2013 Visit Plan: OMT done Daily neck stretche s, moist heat Increase Celebrex to 200mg BID Add flexeril 07/23/2013 Appointment: María Elena Appiah WPtel: [address] [place] [address] 07/22 voicemail FOLLOW UP 07/23/2013 Patient Education: Patient Medication Summary Completed 07/23/2013 Appointment: María Elena Appiah WPtel: [address] [place] [address] ACUTE ILLNESS 06/23/2013 Patient Education: Patient Medication Summary Completed 06/23/2013 Appointment: María Elena Appiah WPtel: [address] [place] [address] ACUTE ILLNESS 05/26/2013 Patient Education: Patient Medication Summary Completed 05/26/2013 Visit Plan: Decrease clonidine to 0.1mg TID If BP remains stable consider decreasing amlodopine Prednisone for 5 days BP check in 1mo 04/16/2013 Appointment: María Elena Appiah WPtel: [address] [place] [address] 04/14 pt called and confirmed appt FOLLOW UP 04/16/2013 Patient Education: Patient Medication Summary Completed 04/16/2013 Appointment: María Elena Appaih WPtel: [address] [place] [address] ACUTE ILLNESS 03/05/2013 Patient Education: Patient Medication Summary Completed 03/05/2013 Visit Plan: Pt has MARIA ELENA on with Dr. Mcdonough Continue Butrans patch Refill Hydrocodone early tomorrow 12/23/2012 Appointment: María Elena Appiah WPtel: [address] [place] [address] FOLLOW UP 12/23/2012 Patient Education: Patient Medication Summary Completed 12/23/2012 Appointment: Lashawn Eckert WPtel: [address] [place] [address] ACUTE ILLNESS 12/16/2012 Patient Education: Patient Medication Summary Completed 12/16/2012 Visit Plan: Proceed with updated MRI of LS spine Continue gabapentin and add soma and diclofenac Will likely need to go for another epidural 12/09/2012 Appointment: María Elena Appiah WPtel: [address] [place] [address] ACUTE ILLNESS 12/09/2012 Patient Education: Patient Medication Summary Completed 12/09/2012 Visit Plan: Injection as above Finish me drol dose pack Chiropracter this afternoon 12/04/2012 Appointment: María Elena Appiah WPtel: [address] [place] [address] ACUTE ILLNESS 12/04/2012 Patient Education: Patient Medication Summary Completed 12/04/2012 Appointment: Mary Tillman WPtel: [address] [place] [address] FOLLOW UP 11/22/2012 Patient Education: Patient Medication Summary Completed 11/22/2012 Appointment: María Elena Appiah WPtel: [address] [place] [address] ACUTE ILLNESS 11/21/2012 Patient Education: Patient Medication Summary Completed 11/21/2012 Appointment: María Elena Appiah WPtel: [address] [place] [address] [place] BP CHECK 11/07/2012 Patient Education: Patient [...] BP re-check. 10/29/2012 Appointment: Lashawn Eckert WPtel: [address] [place] [address] ACUTE ILLNESS 10/29/2012 Patient Education: Patient Medication Summary Completed 10/29/2012 Appointment: María Elena Appiah WPtel: [address] [place] [address] ACUTE ILLNESS 10/14/2012 Patient Education: Patient Medication Summary Completed 10/14/2012 Appointment: María Elena Appiah WPtel: [address] [place] [address] UA 09/27/2012 Patient Education: Patient Medication Summary Completed 09/27/2012 Appointment: María Elena Appiah WPtel: [address] [place] [address] ACUTE ILLNESS 09/25/2012 Patient Education: Patient Medication Summary Completed 09/25/2012 Appointment: María Elena Appiah WPtel: [address] [place] [address] BP CHECK 09/24/2012 Appointment: María Elena Appiah WPtel: [address] [place] [address] ACUTE ILLNESS 08/29/2012 Patient Education: Patient Medication Summary Completed 08/29/2012 Visit Plan: Cryotherapy as above See Karlos m for right ear lesion--probable MOHs procedure Increase amlodopine to 10mg daily 08/12/2012 Appointment: María Elena Appiah WPtel: [address] [place], [place] [phone] OFFICE SURGERY 08/12/2012 Patient Education: Patient Medication Summary Completed 08/12/2012 Appointment: María Elena Appiah WPtel: [address] [place], [place] [phone] 05/03 vm on pt phone...pt called on 04/11 3 pt called wanting in had no one cancel so could not get her in for an appt sooner than 05/06. ACUTE ILLNESS 05/06/2012 Patient Education: Patient Medication Summary Completed 05/06/2012 Visit Plan: Pt wants to hold on any furt her sleep medications 04/03/2012 Appointment: María Elena Appiah WPtel: [address] [place], [place] [phone] FOLLOW UP 04/03/2012 Patient Education: Patient Medication Summary Completed 04/03/2012 Appointment: María Elena Appiah WPtel: [address] [place], [place] [phone] [place] FOLLOW UP 03/19/2012 Patient Education: Patient Medication Summary Completed 03/19/2012 Appointment: María Elena Appiah WPtel: [address] [place], [place] [phone] BP CHECK 02/22/2012 Patient Education: Patient Medication Summary Completed 02/22/2012 Appointment: María Elena Appiah WPtel: [address] [place], [place] [phone] BP CHECK 02/21/2012 Patient Education: Patient Medication Summary Completed 02/21/2012 Visit Plan: Doxycycline and bactroban fo r foot Supportive care on ankles and knees Add norvasc for BP 02/20/2012 Appointment: María Elena Appiahtel: [address] [place], [place] [phone] ER Follow UP 02/20/2012 Patient Education: Patient Medication Summary Completed 02/20/2012 Appointment: María Elena Appiah WPtel: [address] [place] [address] ACUTE ILLNESS 01/30/2012 Patient Education: Patient Medication Summary Completed 01/30/2012 Appointment: María Elena Appiah WPtel: [address] [place] [address] ACUTE ILLNESS 01/24/2012 Patient Education: Patient Medication Summary Completed 01/24/2012 Visit Plan: Daily back stretches, moist heat, Biofreeze prn OMT done 01/10/2012 Appointment: María Elena Appiah WPtel: [address] [place] [address] ACUTE ILLNESS 01/10/2012 Patient Education: Patient Medication Summary Completed 01/10/2012 Appointment: María Elena Appiah WPtel: [address] [place] [address] FOLLOW UP 12/11/2011 Patient Education: Patient Medication Summary Completed 12/11/2011 Appointment: María Elena Appiah WPtel: [address] [place] [address] ACUTE ILLNESS 11/09/2011 Patient Education: Patient Medication Summary Completed 11/09/2011 Appointment: María Elena Appiahtel: [address] [place] [address] ACUTE ILLNESS 09/13/2011 Patient Education: Patient Medication Summary Completed 09/13/2011 Visit Plan: Check CBC, TSH, Free T4, CMP , ESR, Vit D, B12 now Start Prednisone today 08/31/2011 Appointment: María Elena Appiah WPtel: [address] [place] [address] ACUTE ILLNESS 08/31/2011 Patient Education: Patient Medication Summary Completed 08/31/2011 Appointment: María Elena Appiah WPtel: [address] [place] [address] [place] INJECTION 07/20/2011 Patient Education: Patient Medication Summary Completed 07/20/2011 Visit Plan: Continue current meds Monite r BP Cont stretches from PT 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 07/06/2011 Appointment: María Elena Appiahtel: [address] [place], [place] [phone] [place] FOLLOW UP 07/06/2011 Patient Education: Patient Medication Summary Completed 07/06/2011 Appointment: María Elena Appiah WPtel: [address] [place] [address] US BP CHECK 06/06/2011 Patient Education: Patient Medication Summary Completed 06/06/2011 Visit Plan: Add Bystolic at 2.5mg QAM Ad d Robaxin 750mg 2 po q HS BP check in 2wks 05/22/2011 Appointment: María Elena Appiahtel: [address] [place] [address] FOLLOW UP 05/22/2011 Patient Education: Patient Medication Summary Completed 05/22/2011 Appointment: María Elena Appiahtel: [address] [place], [place] [phone] ER Follow UP 05/09/2011 Patient Education: Patient Medication Summary Completed 05/09/2011 Appointment: María Elena Appiahtel: [address] [place], [place] [phone] [place] FOLLOW UP 02/22/2011 Visit Plan: Rx written for Hydrocodone 1 0/325mg #240 See Ortho 02/14/2011 Appointment: María Elena Appiahtel: [address] [place], [place] [phone] [place] OMT 02/14/2011 Patient Education: Patient Medication [...] lab work. 02/03/2011 Appointment: Lashawn Eckert WPtel: [address] [place] [address] ACUTE ILLNESS 02/03/2011 Patient Education: Patient Medication Summary Completed 02/03/2011 Visit Plan: OMT done Cont daily stretche s 01/31/2011 Appointment: María Elena Appiah WPtel: [address] [place] [address] ACUTE ILLNESS 01/31/2011 Patient Education: Patient Medication Summary Completed 01/31/2011 Visit Plan: Continue pain meds OMT done Proceed with PT No work this summer01/25/2011 Appointment: María Elena Appiah WPtel: [address] [place] [address] ACUTE ILLNESS 01/25/2011 Patient Education: Patient Medication Summary Completed 01/25/2011 Visit Plan: Start PT Long discussion abo ut getting pain meds from only us and can only have max of 4grams of tylenol per day Change to Hydrocodone 10/325mg 1- 2 po TID prn pain--#180 called to Radha 01/18/2011 Appointment: María Elena Appiah WPtel: [address] [place] [address] FOLLOW UP 01/18/2011 Patient Education: Patient Medication Summary Completed 01/18/2011 Visit Plan: Daily back stretches, moist heat, Biofreeze prn 11/29/2010 Appointment: María Elena Appiah WPtel: [address] [place] [address] ER Follow UP 11/29/2010 Patient Education: Patient Medication Summary Completed 11/29/2010 Visit Plan: Saline nasal flushes prn. Ty lenol/Motrin prn headache. Notify if persists/symptoms worsening. Finish augmentin Add Medrol Dose Pack 10/10/2010 Appointment: María Elena Appiahtel: [address] [place] [address] ACUTE ILLNESS 10/10/2010 Patient Education: Patient Medication Summary Completed 10/10/2010 Visit Plan: Cryotherapy x3 to multiple l esions on both forearms 07/19/2010 Appointment: María Elena Appiah WPtel: [address] [place] [address] OFFICE SURGERY 07/19/2010 Patient Education: Patient Medication Summary Completed 07/19/2010 Appointment: María Elena Appiahtel: [address] [place] [address] BP CHECK 07/06/2010 Patient Education: Patient Medication Summary Completed 07/06/2010 Appointment: María Elena Appiahtel: [address] [place] [address] BP CHECK 06/30/2010 Patient Education: Patient Medication Summary Completed 06/30/2010 Appointment: María Elena Appiahtel: [address] [place] [address] BP CHECK 06/20/2010 Patient Education: Patient Medication Summary Completed 06/20/2010 Visit Plan: Change Diovan to Exforge 160 /5mg QD OMT done to thoracics BP check in 2wks 06/07/2010 Appointment: María Elena Appiah WPtel: [address] [place] [address] [place] FOLLOW UP 06/07/2010 Patient Education: Patient Medication Summary Completed 06/07/2010 Appointment: María Elena Appiahtel: [address] [place] [address] [place] BP CHECK 06/03/2010 Patient Education: Patient Medication Summary Completed 06/03/2010 Appointment: María Elena Appiah WPtel: [address] [place] [address] BP CHECK 06/01/2010 Patient Education: Patient Medication Summary Completed 06/01/2010 Visit Plan: Irritated skin tags to left neck x2 excised at base with scissors and base cauterized 05/30/2010 Appointment: María Elena Appiah WPtel: [address] [place] [address] OFFICE SURGERY 05/30/2010 Patient Education: Patient Medication Summary Completed 05/30/2010 Visit Plan: Saline nasal flushes prn. Ty lenol/Motrin prn headache. Notify if persists/symptoms worsening. Restart Nasonex Has allergy testing set for May 25 04/27/2010 Appointment: María Elena Appiah WPtel: [address] [place] [address] ACUTE ILLNESS 04/27/2010 Patient Education: Patient Medication Summary Completed 04/27/2010 Visit Plan: Saline nasal flushes prn. Ty lenol/Motrin prn headache. Notify if persists/symptoms worsening. Omnaris BID plus injections 04/05/2010 Appointment: María Elena Appiah WPtel: [address] [place] [address] ACUTE ILLNESS 04/05/2010 Patient Education: Patient Medication Summary Completed 04/05/2010 Visit Plan: Saline nasal flushes prn. Ty lenol/Motrin prn headache. Notify if persists/symptoms worsening. 03/09/2010 Appointment: María Elena Appiah WPtel: [address] [place] [address] ACUTE ILLNESS 03/09/2010 Patient Education: Patient Medication Summary Completed 03/09/2010 Visit Plan: Cont Clonidine as is Cont Pr emarin Fwup with surgery as scheduled 03/03/2010 Appointment: María Elena Appiah WPtel: [address] [place] [address] FOLLOW UP 03/03/2010 Patient Education: Patient Medication Summary Completed 03/03/2010 Visit Plan: Check Pelvic US now Discusse d Dand C vs Hysterectomy 01/17/2010 Appointment: María Elena Appiah WPtel: [phone] [id number] ACUTE ILLNESS 01/17/2010 Patient Education: Patient Medication Summary Completed 01/17/2010 Visit Plan: Check fasting lab and schedu le Mammogram 2gm Na Diet Trial of Ambien 10mg qhs Fwup pending lab results 12/27/2009 Appointment: María Elena Appiah WPtel: [phone] [id number] ESTABLISHED PATIENT 12/27/2009 Patient Education: Patient Medication Summary Completed 12/27/2009 Referral: Canelo Overton WPtel: [address] [id number] Referral Initiated Referral: Philipp Flores WPtel: [address] [id number] [place] Referral Appointment Requested Instructions Comment . [...]
--- OUTSIDE RECORDS SUMMARY | 2020-03-13 05:38 | XMS REPORT | CCD ---
Author Author Gale Appiah D.O. 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 Name Role Phone María Elena Appiah D.O., PP Unavailable CCM Unavailable Summary Purpose Interface Exchange Insurance Providers Payer name Policy type / Coverage type Covered libertarian ID Effective Begin Date Effective End Date [facility] Commercial Insurance [id number] Unknown Family History Family History data not found Social History Social History Element Codes Description Effective Dates Tobacco history SNOMED CT: [id number] Never smoker 05/22/2011 Allergies, Adverse Reactions, Alerts [...] Fill Instructions doxepin 25 mg capsule RxNorm: 1633185 TAKE ONE CAPSULE B Y MOUTH EVERY NIGHT AT BEDTIME NEEDED FOR SLEEP 11/16/2019 No Stop Date Active Klor-Con 8 mEq tablet,extended release RxNorm: 697587 T AFRRUKH ONE TABLET BY MOUTH TWICE A DAY 11/16/2019 No Stop Date Active hydrocodone 10 mg-acetaminophen 325 mg tablet RxNorm: 427120 1-2 Tablet(s) Oral three times a day as needed for pain 11/10/2019 No Stop Date Active cyclobenzaprine 10 mg tablet RxNorm: 801960 TAKE ONE TA BLET BY MOUTH THREE TIMES A DAY NEEDED FOR MUSCLE SPASMS 10/23/2019 No Stop Date Active duloxetine 60 mg capsule,delayed release RxNorm: 823137 1 Capsu le(s) Oral QD 10/17/2019 04/13/2020 Active celecoxib 200 mg capsule RxNorm: 762371 1 Capsule(s) Or al two times a day as needed for pain 10/17/2019 01/14/2020 Active lisinopril 20 mg tablet RxNorm: 564936 1 Tablet(s) Oral QD 10/17/19 20 04/13/2020 Active gabapentin 300 mg capsule RxNorm: 276206 1 Capsule(s) O ral every night at bedtime 10/17/2019 01/15/2020 Active Singulair 10 mg tablet RxNorm: 502134 1 Tablet(s) Oral QD 10/17/2019 04/14/2020 Active metoprolol tartrate 100 mg tablet RxNorm: 375876 1 Tabl et(s) Oral two times a day 10/17/2019 04/13/2020 Active clonidine HCl 0.1 mg tablet RxNorm: 168958 1 Tablet(s) Oral fou r times a day 10/17/2019 04/13/2020 Active Januvia 100 mg tablet RxNorm: 078901 1 Tablet(s) Oral QD 10/17/2019 No Stop Date Active Lipitor 10 mg tablet RxNorm: 391211 1 Tablet(s) Oral QD 10/17/2019 Active Steglatro 15 mg tablet RxNorm: 2015086 1 Tablet(s) Oral QD 10/17/19 No Stop Date Active Klor-Con 8 mEq tablet,extended release RxNorm: 957659 1 Tablet(s) Oral two times a day 10/17/2019 11/15/2019 Inactive Glyxambi 25 mg-5 mg tablet RxNorm: 3860971 1 Tablet(s) Oral QD 01/202010/16/2019 Inactive Patient will bring in copay discount card as well Glyxambi 25 mg-5 mg tablet RxNorm: 9026007 1 Tablet(s) Oral QD 01/202010/14/2019 Inactive Patient will bring in copay discount card as well Keflex 500 mg capsule RxNorm: 883308 1 Capsule(s) Oral two time s a day 10/07/2019 10/14/2019 Inactive Premarin 1.25 mg tablet RxNorm: 324059 1 Tablet(s) Oral QD 09/30/1906/25/2020 Active hydrocodone 10 mg-acetaminophen 325 mg tablet RxNorm: 356668 1-2 Tablet(s) Oral three times a day as needed for pain 09/30/2019 09/30/2019 Inactive baclofen 10 mg tablet RxNorm: 890680 TAKE ONE TABLET BY MOUTH THREE TIMES A DAY NEEDED 09/19/2019 No Stop Date Active gabapentin 300 mg capsule RxNorm: 769615 TAKE ONE CAPSU LE BY MOUTH EVERY NIGHT AT BEDTIME 09/19/2019 10/16/2019 Inactive Klor-Con 8 mEq tablet,extended release RxNorm: 998118 T FARRUKH ONE TABLET BY MOUTH TWICE A DAY 1 Tablet(s) Oral two times a day 09/19/2019 10/16/2019 Renu ctive hydrocodone 10 mg-acetaminophen 325 mg tablet RxNorm: 291870 1-2 Tablet(s) Oral three times a day as needed for pain 09/19/2019 09/29/2019 Inactive triamterene 75 mg-hydrochlorothiazide 50 mg tablet RxNorm: 3 86075 TAKE ONE TABLET BY MOUTH DAILY 09/11/2019 No Stop Date Active allopurinol 300 mg tablet RxNorm: 847466 TAKE ONE TABLET BY LOPEZ TH DAILY 09/11/2019 No Stop Date Active duloxetine 60 mg capsule,delayed release RxNorm: 866801 TAKE ONE CAPSULE BY MOUTH DAILY 09/11/2019 10/16/2019 Inactive Lipitor 10 mg tablet RxNorm: 460382 TAKE ONE TABLET BY MOUTH AT BEDTIME 09/11/2019 10/16/2019 Inactive lisinopril 20 mg tablet RxNorm: 226957 TAKE ONE TABLET BY MOUTH DAILY .... THIS REPLACE 10MG TABLETS 09/11/2019 10/16/2019 Inactive celecoxib 200 mg capsule RxNorm: 936156 TAKE ONE CAPSUL E BY MOUTH TWICE A DAY NEEDED FOR PAIN 09/11/2019 10/16/2019 Inactive clonidine HCl 0.1 mg tablet RxNorm: 670857 TAKE ONE TAB LET BY MOUTH FOUR TIMES A DAY 09/11/2019 10/16/2019 Inactive doxepin 25 mg capsule RxNorm: 5312489 1 Capsule(s) Oral every night at bedtime as needed for sleep 08/21/2019 11/15/2019 Inactive hydrocodone 10 mg-acetaminophen 325 mg tablet RxNorm: 212046 1-2 Tablet(s) PO TID 08/12/2019 09/29/2019 Inactive as needed for pa in - Previous quantity #240, will start dosing for #180 in April 2011 per Doctor Td. Medrol (Dustin) 4 mg tablets in a dose pack RxNorm: 357819 Tablet(s) Oral As Directed 07/21/2019 09/29/2019 Inactive Premarin 1.25 mg tablet RxNorm: 801504 1 Tablet(s) Oral QD 07/02/2009/29/2019 Inactive hydrocodone 10 mg-acetaminophen 325 mg tablet RxNorm: 727393 1-2 Tablet(s) PO TID 07/01/2019 08/11/2019 Inactive as needed for pa in - Previous quantity #240, will start dosing for #180 in April 2011 per Doctor Td. gabapentin 300 mg capsule RxNorm: 518598 1 Capsule(s) PO QHS 201809/18/2019 Inactive celecoxib 200 mg capsule RxNorm: 904049 1 Capsule(s) Or al two times a day as needed for pain 06/27/2019 06/27/2019 Inactive furosemide 40 mg tablet RxNorm: 595065 TAKE ONE TABLET BY MOUTH EVERY MORNING NEEDED FOR EDEMA . TAKE WITH POTASSIUM 06/24/2019 No Stop Date Active doxepin 25 mg capsule RxNorm: 8153519 TAKE ONE CAPSULE B Y MOUTH EVERY NIGHT AT BEDTIME NEEDED FOR SLEEP 06/24/2019 08/20/2019 Inactive Singulair 10 mg tablet RxNorm: 897842 TAKE ONE TABLET BY MOUTH JOSÉ Y 06/24/2019 10/16/2019 Inactive lisinopril 20 mg tablet RxNorm: 789507 TAKE ONE TABLET BY MOUTH DAILY .... THIS REPLACE 10MG TABLETS 06/24/2019 09/10/2019 Inactive nystatin-triamcinolone 100,000 unit/g-0.1 % topical cream Rx Norm: 2267298 1 Application Topical two times a day 06/12/2019 06/19/2019 Inactive apply BID for 1 week nystatin-triamcinolone 100,000 unit/g-0.1 % topical cream Rx Norm: 5114488 1 Application Topical two times a day 06/12/2019 06/11/2019 Inactive apply BID for 1 week hydrocodone 10 mg-acetaminophen 325 mg tablet RxNorm: 400187 1-2 Tablet(s) PO QID as needed for pain MUST LAST 30 DAYS 05/28/2019 06/26/2019 Inactiv e (Response to an electronic controlled substance refill request - RxReferenceNumber: [id number]) baclofen 20 mg tablet RxNorm: 207734 1 Tablet(s) PO TID as needed for muscle spasm 05/19/2019 05/27/2019 Inactive gabapentin 300 mg capsule RxNorm: 493054 1 Capsule(s) PO QHS 201805/27/2019 Inactive lisinopril 20 mg tablet RxNorm: 148222 1 Tablet(s) PO Q D TAKE ONE TABLET BY MOUTH DAILY, REPLACES 10 MG DOSE 05/19/2019 06/23/2019 Inactive doxepin 25 mg capsule RxNorm: 6585389 TAKE ONE CAPSULE B Y MOUTH EVERY NIGHT AT BEDTIME NEEDED FOR SLEEP 05/16/2019 06/14/2019 Inactive lisinopril 20 mg tablet RxNorm: 275351 TAKE ONE TABLET BY MOUTH DAILY, REPLACES 10 MG DOSE 05/16/2019 05/18/2019 Inactive Singulair 10 mg tablet RxNorm: 467547 TAKE ONE TABLET BY MOUTH JOSÉ Y 05/16/2019 06/14/2019 Inactive gabapentin 300 mg capsule RxNorm: 197381 1 Capsule(s) PO QHS 201805/04/2019 Inactive estropipate 1.5 mg tablet RxNorm: 537225 1 Tablet(s) PO QD 05/05/2005/27/2019 Inactive estropipate 1.5 mg tablet RxNorm: 644437 1 Tablet(s) PO QD 05/05/2005/04/2019 Inactive gabapentin 300 mg capsule RxNorm: 254757 1 Capsule(s) PO QHS 201805/18/2019 Inactive hydrocodone 10 mg-acetaminophen 325 mg tablet RxNorm: 500915 1-2 Tablet(s) PO QID as needed for pain MUST LAST 30 DAYS 04/25/2019 05/24/2019 Inactiv e (Response to an electronic controlled substance refill request - RxReferenceNumber: [id number]) cyclobenzaprine 10 mg tablet RxNorm: 832190 TAKE ONE TA BLET BY MOUTH THREE TIMES A DAY NEEDED FOR MUSCLE SPASMS 04/24/2019 05/18/2019 Inactive metoprolol tartrate 100 mg tablet RxNorm: 276791 TAKE O NE TABLET BY MOUTH TWICE A DAY 04/24/2019 10/16/2019 Inactive Lyrica 75 mg capsule RxNorm: 044409 1 Capsule(s) PO QHS 03/25/2019 Inactive duloxetine 60 mg capsule,delayed release RxNorm: 471708 TAKE ONE CAPSULE BY MOUTH DAILY 03/21/2019 05/19/2019 Inactive triamterene 75 mg-hydrochlorothiazide 50 mg tablet RxNorm: 3 74140 TAKE ONE TABLET BY MOUTH DAILY 03/21/2019 05/19/2019 Inactive Klor-Con 8 mEq tablet,extended release RxNorm: 419970 T FARRUKH ONE TABLET BY MOUTH TWICE A DAY 03/21/2019 09/18/2019 Inactive Lipitor 10 mg tablet RxNorm: 976563 TAKE ONE TABLET BY MOUTH AT BEDTIME 03/21/2019 09/10/2019 Inactive clonidine HCl 0.1 mg tablet RxNorm: 542329 TAKE ONE TAB LET BY MOUTH FOUR TIMES A DAY 03/21/2019 05/19/2019 Inactive allopurinol 300 mg tablet RxNorm: 725962 TAKE ONE TABLET BY LOPEZ TH DAILY 03/21/2019 05/19/2019 Inactive hydrocodone 10 mg-acetaminophen 325 mg tablet RxNorm: 425893 1-2 Tablet(s) PO QID as needed for pain MUST LAST 30 DAYS 02/28/2019 03/29/2019 Inactiv e (Response to an electronic controlled substance refill request - RxReferenceNumber: [id number]) furosemide 40 mg tablet RxNorm: 407620 TAKE ONE TABLET BY MOUTH EVERY MORNING NEEDED FOR EDEMA . TAKE WITH POTASSIUM 02/21/2019 03/22/2019 Inactive cyclobenzaprine 10 mg tablet RxNorm: 167921 TAKE ONE TA BLET BY MOUTH THREE TIMES A DAY NEEDED FOR MUSCLE SPASMS 02/21/2019 04/21/2019 Inactive lisinopril 20 mg tablet RxNorm: 855886 TAKE ONE TABLET BY MOUTH DAILY, REPLACES 10 MG DOSE 02/21/2019 05/15/2019 Inactive doxepin 25 mg capsule RxNorm: 1737422 TAKE ONE CAPSULE B Y MOUTH EVERY NIGHT AT BEDTIME NEEDED FOR SLEEP 02/21/2019 05/15/2019 Inactive nystatin 100,000 unit/gram topical cream RxNorm: 161693 APPLY TO AFFECTED AREA(S) TWO TIMES A DAY 02/21/2019 03/22/2019 Inactive estradiol 1 mg tablet RxNorm: 900921 2 Tablet(s) PO QD replaces premarin 01/22/2019 05/04/2019 Inactive lisinopril 20 mg tablet RxNorm: 136914 TAKE ONE TABLET BY MOUTH DAILY, REPLACES 10 MG DOSE 01/20/2019 02/18/2019 Inactive cyclobenzaprine 10 mg tablet RxNorm: 927214 TAKE ONE TA BLET BY MOUTH THREE TIMES A DAY NEEDED FOR MUSCLE SPASMS 01/20/2019 02/18/2019 Inactive metoprolol tartrate 100 mg tablet RxNorm: 045787 TAKE O NE TABLET BY MOUTH TWICE A DAY 01/20/2019 02/18/2019 Inactive cyclobenzaprine 10 mg tablet RxNorm: 830947 TAKE ONE TA BLET BY MOUTH THREE TIMES A DAY NEEDED FOR MUSCLE SPASMS 12/19/2018 01/17/2019 Inactive lisinopril 20 mg tablet RxNorm: 702768 TAKE ONE TABLET BY MOUTH DAILY, REPLACES 10 MG DOSE 12/19/2018 01/17/2019 Inactive duloxetine 60 mg capsule,delayed release RxNorm: 457815 TAKE ONE CAPSULE BY MOUTH DAILY 12/19/2018 01/17/2019 Inactive Lipitor 10 mg tablet RxNorm: 810381 TAKE ONE TABLET BY MOUTH AT BEDTIME 12/19/2018 01/17/2019 Inactive cyclobenzaprine 10 mg tablet RxNorm: 100793 1 Tablet(s) PO TID as needed for muscle spasm 11/19/2018 12/18/2018 Inactive Singulair 10 mg tablet RxNorm: 810005 1 Tablet(s) PO QD 11/19/2018 Inactive lisinopril 20 mg tablet RxNorm: 136287 TAKE ONE TABLET BY MOUTH DAILY, REPLACES 10 MG DOSE 11/15/2018 12/18/2018 Inactive hydrocodone 10 mg-acetaminophen 325 mg tablet RxNorm: 345573 1-2 Tablet(s) PO QID as needed for pain MUST LAST 30 DAYS 11/13/2018 12/12/2018 Inactiv e (Response to an electronic controlled substance refill request - RxReferenceNumber: [id number]) nystatin 100,000 unit/gram topical cream RxNorm: 392584 APPLY TO AFFECTED AREA(S) TWO TIMES A DAY 10/23/2018 11/06/2018 Inactive lisinopril 20 mg tablet RxNorm: 983029 1 Tablet(s) PO QD replac es 10mg dose 10/18/2018 11/14/2018 Inactive hydrocodone 10 mg-acetaminophen 325 mg tablet RxNorm: 536070 1-2 Tablet(s) QID as needed for pain MUST LAST 30 DAYS 10/08/2018 11/06/2018 Inactive (Response to an electronic controlled substance refill request - RxReferenceNumber: [id number]) lisinopril 10 mg tablet RxNorm: 189136 1 Tablet(s) PO QD 10/03/2018 0 01/21/2019 Inactive Celebrex 200 mg capsule RxNorm: 456850 TAKE ONE CAPSULE BY MOUT H TWICE A DAY 09/30/2018 05/04/2019 Inactive cyclobenzaprine 10 mg tablet RxNorm: 332442 TAKE ONE TA BLET BY MOUTH THREE TIMES A DAY NEEDED FOR MUSCLE SPASMS 09/30/2018 11/18/2018 Inactive doxepin 25 mg capsule RxNorm: 5345311 TAKE ONE CAPSULE B Y MOUTH EVERY NIGHT AT BEDTIME NEEDED 09/05/2018 10/16/2018 Inactive omeprazole 40 mg capsule,delayed release RxNorm: 317496 TAKE ONE CAPSULE BY MOUTH DAILY 09/05/2018 01/21/2019 Inactive furosemide 40 mg tablet RxNorm: 293664 TAKE ONE TABLET BY MOUTH EVERY MORNING NEEDED FOR EDEMA . TAKE WITH POTASSIUM 09/05/2018 11/03/2018 Inactive phentermine 37.5 mg tablet RxNorm: 591241 1 Tablet(s) PO QAM 201701/21/2019 Inactive doxepin 25 mg capsule RxNorm: 1355728 1 Capsule(s) PO QH S as needed for sleep TAKE ONE CAPSULE BY MOUTH EVERY NIGHT AT BEDTIME NEEDED 08/27/2018 09/04/2018 Inactive Keflex 500 mg capsule RxNorm: 307611 1 Capsule(s) PO TID 08/09/2018 1 10/19/2017 Inactive Diflucan 100 mg tablet RxNorm: 630788 1 Tablet(s) PO QD 08/09/2018 Inactive Premarin 1.25 mg tablet RxNorm: 603763 2 Tablet(s) PO QD 08/09/2018 0 05/04/2019 Inactive Zofran ODT 4 mg disintegrating tablet RxNorm: 445460 1 Tablet(s) PO Q4H as needed for nausea 08/09/2018 01/21/2019 Inactive metoprolol tartrate 100 mg tablet RxNorm: 871155 TAKE O NE TABLET BY MOUTH TWICE A DAY 2018 10/04/2018 Inactive doxepin 25 mg capsule RxNorm: 3297039 TAKE ONE CAPSULE B Y MOUTH EVERY NIGHT AT BEDTIME NEEDED 2018 08/26/2018 Inactive cyclobenzaprine 10 mg tablet RxNorm: 466737 TAKE ONE TA BLET BY MOUTH THREE TIMES A DAY NEEDED FOR MUSCLE SPASMS 2018 09/29/2018 Inactive hydrocodone 10 mg-acetaminophen 325 mg tablet RxNorm: 914361 1-2 Tablet(s) QID as needed for pain MUST LAST 30 DAYS 07/29/2018 08/27/2018 Inactive (Response to an electronic controlled substance refill request - RxReferenceNumber: [id number]) nystatin 100,000 unit/gram topical powder RxNorm: 451095 Applic ation TOP BID 07/22/2018 08/04/2018 Inactive doxepin 25 mg capsule RxNorm: 8002603 1 Capsule(s) PO QHS as needed 07/22/2018 08/05/2018 Inactive triamterene 75 mg-hydrochlorothiazide 50 mg tablet RxNorm: 3 22109 TAKE ONE TABLET BY MOUTH DAILY 07/05/2018 10/02/2018 Inactive duloxetine 60 mg capsule,delayed release RxNorm: 867685 TAKE ONE CAPSULE BY MOUTH DAILY 07/05/2018 09/02/2018 Inactive Klor-Con 8 mEq tablet,extended release RxNorm: 246476 T FARRUKH ONE TABLET BY MOUTH TWICE A DAY 07/05/2018 10/02/2018 Inactive Lipitor 10 mg tablet RxNorm: 922338 TAKE ONE TABLET BY MOUTH AT BEDTIME 07/05/2018 09/02/2018 Inactive allopurinol 300 mg tablet RxNorm: 636615 TAKE ONE TABLET BY LOPEZ TH DAILY 07/05/2018 10/02/2018 Inactive clonidine HCl 0.1 mg tablet RxNorm: 489625 TAKE ONE TAB LET BY MOUTH FOUR TIMES A DAY 07/05/2018 10/02/2018 Inactive hydrocodone 10 mg-acetaminophen 325 mg tablet RxNorm: 605157 1-2 Tablet(s) QID as needed for pain MUST LAST 30 DAYS 06/28/2018 07/27/2018 Inactive (Response to an electronic controlled substance refill request - RxReferenceNumber: [id number]) MediHoney (calcium alginate-honey) 4" X 5" bandage RxNorm: 1 Application TOP QD 06/17/2018 06/26/2018 Inactive honey-hydrocolloid dressing 4" X 5" RxNorm: 1 Application TOP QD 06/17/2018 07/16/2018 Inactive furosemide 40 mg tablet RxNorm: 827197 TAKE ONE TABLET BY MOUTH EVERY MORNING NEEDED FOR EDEMA . TAKE WITH POTASSIUM 06/10/2018 07/09/2018 Inactive This is a refill request. hydrocodone 10 mg-acetaminophen 325 mg tablet RxNorm: 673404 1-2 Tablet(s) QID as needed for pain MUST LAST 30 DAYS 05/30/2018 06/27/2018 Inactive (Response to an electronic controlled substance refill request - RxReferenceNumber: [id number]) acyclovir 800 mg tablet RxNorm: 606959 1 Tablet(s) PO 5x day 201705/22/2018 Inactive Premarin 1.25 mg tablet RxNorm: 325713 1-2 Tablet(s) PO QD 05/15/20 18 07/13/2018 Inactive cyclobenzaprine 10 mg tablet RxNorm: 101747 1 Tablet(s) PO TID as needed for muscle spasm 05/09/2018 05/08/2018 Inactive Medrol (Dustin) 4 mg tablets in a dose pack RxNorm: 682238 Tablet(s) PO As Directed 05/02/2018 06/16/2018 Inactive hydrocodone 10 mg-acetaminophen 325 mg tablet RxNorm: 640743 1-2 Tablet(s) QID as needed for pain MUST LAST 30 DAYS 04/30/2018 05/29/2018 Inactive (Response to an electronic controlled substance refill request - RxReferenceNumber: [id number]) duloxetine 60 mg capsule,delayed release RxNorm: 408512 TAKE ONE CAPSULE BY MOUTH DAILY 04/16/2018 05/15/2018 Inactive Celebrex 200 mg capsule RxNorm: 658544 TAKE ONE CAPSULE BY MOUT H TWICE A DAY 04/16/2018 06/14/2018 Inactive Singulair 10 mg tablet RxNorm: 923961 TAKE ONE TABLET BY MOUTH JOSÉ Y 04/16/2018 11/19/2018 Inactive Lipitor 10 mg tablet RxNorm: 570280 TAKE ONE TABLET BY MOUTH AT BEDTIME 04/16/2018 05/15/2018 Inactive hydrocodone 10 mg-acetaminophen 325 mg tablet RxNorm: 161923 1-2 Tablet(s) QID as needed for pain MUST LAST 30 DAYS 03/29/2018 04/27/2018 Inactive (Response to an electronic controlled substance refill request - RxReferenceNumber: [id number]) cyclobenzaprine 10 mg tablet RxNorm: 252941 1 Tablet(s) PO TID as needed for muscle spasm 03/18/2018 05/09/2018 Inactive omeprazole 40 mg capsule,delayed release RxNorm: 811538 1 Capsu le(s) PO QD 02/26/2018 08/24/2018 Inactive hydrocodone 10 mg-acetaminophen 325 mg tablet RxNorm: 821817 1-2 Tablet(s) QID as needed for pain MUST LAST 30 DAYS 02/26/2018 03/27/2018 Inactive (Response to an electronic controlled substance refill request - RxReferenceNumber: [id number]) metoprolol tartrate 100 mg tablet RxNorm: 493487 1 Tablet(s) PO BID 02/18/2018 08/05/2018 Inactive Lyrica 75 mg capsule RxNorm: 514202 1 Capsule(s) PO QHS 01/30/2018 Inactive phentermine 37.5 mg tablet RxNorm: 871844 1 Tablet(s) PO QAM 201706/16/2018 Inactive hydrocodone 10 mg-acetaminophen 325 mg tablet RxNorm: 716775 1-2 Tablet(s) QID as needed for pain MUST LAST 30 DAYS 01/29/2018 02/25/2018 Inactive (Response to an electronic controlled substance refill request - RxReferenceNumber: [id number]) Klor-Con 8 mEq tablet,extended release RxNorm: 602801 1 Tablet( s) PO BID 01/14/2018 07/04/2018 Inactive allopurinol 300 mg tablet RxNorm: 324662 1 Tablet(s) PO QD 01/15/2007/04/2018 Inactive Lipitor 10 mg tablet RxNorm: 114449 1 Tablet(s) PO QHS 01/14/201812/2017 Inactive triamterene 75 mg-hydrochlorothiazide 50 mg tablet RxNorm: 3 87531 1 Tablet(s) PO QD 01/14/2018 07/04/2018 Inactive hydrocodone 10 mg-acetaminophen 325 mg tablet RxNorm: 397909 1-2 Tablet(s) QID as needed for pain MUST LAST 30 DAYS 12/27/2017 01/25/2018 Inactive (Response to an electronic controlled substance refill request - RxReferenceNumber: [id number]) Onglyza 5 mg tablet RxNorm: 163500 1 Tablet(s) PO QD 12/18/201701/29 Inactive metformin 500 mg tablet RxNorm: 907677 1 Tablet(s) PO BID 12/11/2017 12/10/2017 Inactive metformin 500 mg tablet RxNorm: 771897 1 Tablet(s) PO BID 12/11/2017 12/17/2017 Inactive furosemide 40 mg tablet RxNorm: 658213 1 Tablet(s) PO Q AM prn edema--take with potassium 12/11/2017 06/08/2018 Inactive cyclobenzaprine 10 mg tablet RxNorm: 750455 1 Tablet(s) PO TID as needed for muscle spasm 12/11/2017 03/18/2018 Inactive hydrocodone 10 mg-acetaminophen 325 mg tablet RxNorm: 460281 1-2 Tablet(s) QID as needed for pain MUST LAST 30 DAYS 10/23/2017 11/21/2017 Inactive (Response to an electronic controlled substance refill request - RxReferenceNumber: [id number]) Lipitor 10 mg tablet RxNorm: 572819 1 Tablet(s) PO QHS 10/16/201703/2018 Inactive cyclobenzaprine 10 mg tablet RxNorm: 107013 1 Tablet(s) PO TID as needed for muscle spasm 10/09/2017 12/10/2017 Inactive hydroxyzine HCl 25 mg tablet RxNorm: 696353 1 Tablet(s) PO BID as needed for anxiety 09/20/2017 01/29/2018 Inactive Effexor XR 75 mg capsule,extended release RxNorm: 575561 1 Caps ule(s) PO QD 09/20/2017 01/29/2018 Inactive metoprolol tartrate 100 mg tablet RxNorm: 837126 1 Tablet(s) PO BID 08/20/2017 02/18/2018 Inactive baclofen 20 mg tablet RxNorm: 731072 1 Tablet(s) PO TID as needed for muscle spasm 08/20/2017 01/21/2019 Inactive clonidine HCl 0.1 mg tablet RxNorm: 290139 1 Tablet(s) PO QID 08/2005/16/2018 Inactive Seroquel 25 mg tablet RxNorm: 154360 1 Tablet(s) PO QHS 08/17/2017 Inactive Seroquel 25 mg tablet RxNorm: 644981 1 Tablet(s) PO QHS 08/17/2017 Inactive Diflucan 100 mg tablet RxNorm: 952882 TAKE ONE TABLET BY MOUTH JOSÉ Y 07/25/2017 08/07/2017 Inactive hydrocodone 10 mg-acetaminophen 325 mg tablet RxNorm: 536524 1-2 Tablet(s) QID as needed for pain MUST LAST 30 DAYS 07/19/2017 08/17/2017 Inactive (Response to an electronic controlled substance refill request - RxReferenceNumber: [id number]) clindamycin 300 mg capsule RxNorm: 417414 1 Capsule(s) PO TID 07/1907/28/2017 Inactive clotrimazole-betamethasone 1 %-0.05 % topical cream RxNorm: 426118 Application TOP BID to elbow rash 07/19/2017 06/16/2018 Inactive Singulair 10 mg tablet RxNorm: 456550 Tablet(s) TAKE ONE TABLET BY MOUTH DAILY 07/18/2017 04/13/2018 Inactive triamterene 75 mg-hydrochlorothiazide 50 mg tablet RxNorm: 3 51461 1 Tablet(s) PO QD 07/18/2017 01/14/2018 Inactive Celebrex 200 mg capsule RxNorm: 439725 Capsule(s) TAKE ONE CAPSULE BY MOUTH TWICE A DAY 07/18/2017 10/15/2017 Inactive hydrocodone 10 mg-acetaminophen 325 mg tablet RxNorm: 504252 1-2 Tablet(s) QID as needed for pain MUST LAST 30 DAYS 06/19/2017 07/18/2017 Inactive (Response to an electronic controlled substance refill request - RxReferenceNumber: [id number]) hydrocodone 10 mg-acetaminophen 325 mg tablet RxNorm: 920822 1-2 Tablet(s) QID as needed for pain MUST LAST 30 DAYS 06/19/2017 06/18/2017 Inactive (Response to an electronic controlled substance refill request - RxReferenceNumber: [id number]) baclofen 20 mg tablet RxNorm: 791508 1 Tablet(s) PO TID as needed for muscle spasm 06/18/2017 08/20/2017 Inactive Medrol (Dustin) 4 mg tablets in a dose pack RxNorm: 984689 Tablet(s) PO As Directed 06/05/2017 07/18/2017 Inactive omeprazole 40 mg capsule,delayed release RxNorm: 990760 1 Capsu le(s) PO QD 04/20/2017 10/16/2017 Inactive Premarin 1.25 mg tablet RxNorm: 422868 1-2 Tablet(s) PO QD 04/11/20 17 05/15/2018 Inactive duloxetine 60 mg capsule,delayed release RxNorm: 409946 1 Capsu le(s) PO QD 04/11/2017 09/19/2017 Inactive furosemide 40 mg tablet RxNorm: 393289 1 Tablet(s) PO Q AM prn edema--take with potassium 04/11/2017 12/11/2017 Inactive Klor-Con 8 mEq tablet,extended release RxNorm: 833957 1 Tablet( s) PO BID 04/11/2017 01/14/2018 Inactive Lipitor 10 mg tablet RxNorm: 423567 1 Tablet(s) PO QHS 04/11/201702/2018 Inactive amlodipine 5 mg-benazepril 20 mg capsule RxNorm: 096898 1 Capsu le(s) PO QD 04/11/2017 01/29/2018 Inactive allopurinol 300 mg tablet RxNorm: 559112 1 Tablet(s) PO QD 04/11/20 17 01/14/2018 Inactive clonidine HCl 0.1 mg tablet RxNorm: 840192 1 Tablet(s) PO QID 04/0508/19/2017 Inactive baclofen 20 mg tablet RxNorm: 150242 1 Tablet(s) PO TID as needed for muscle spasm 04/02/2017 06/18/2017 Inactive Premarin 1.25 mg tablet RxNorm: 201099 1-2 Tablet(s) PO QD 03/20/20 17 04/10/2017 Inactive hydrocodone 10 mg-acetaminophen 325 mg tablet RxNorm: 217177 1-2 Tablet(s) QID as needed for pain MUST LAST 30 DAYS 03/14/2017 01/21/2019 Inactive (Response to an electronic controlled substance refill request - RxReferenceNumber: [id number]) metoprolol tartrate 100 mg tablet RxNorm: 803807 1 Tablet(s) PO BID 02/12/2017 08/20/2017 Inactive hydrocodone 10 mg-acetaminophen 325 mg tablet RxNorm: 804454 1-2 Tablet(s) QID as needed for pain MUST LAST 30 DAYS 02/08/2017 03/09/2017 Inactive (Response to an electronic controlled substance refill request [id number]) metoprolol tartrate 100 mg tablet RxNorm: 302311 TAKE O NE TABLET BY MOUTH TWICE A DAY 01/11/2017 02/12/2017 Inactive metoprolol tartrate 100 mg tablet RxNorm: 962345 1 Tablet(s) PO BID 12/18/2016 12/17/2016 Inactive metoprolol tartrate 100 mg tablet RxNorm: 814199 1 Tablet(s) PO BID 12/18/2016 01/10/2017 Inactive furosemide 40 mg tablet RxNorm: 041623 1 Tablet(s) PO Q AM prn edema--take with potassium 12/13/2016 02/10/2017 Inactive amitriptyline 100 mg tablet RxNorm: 728937 1 Tablet(s) PO QHS 11/2812/12/2016 Inactive baclofen 20 mg tablet RxNorm: 799611 1 Tablet(s) PO TID as needed for muscle spasm 11/14/2016 04/01/2017 Inactive triamterene 75 mg-hydrochlorothiazide 50 mg tablet RxNorm: 3 64476 1 Tablet(s) PO QD 11/14/2016 11/13/2016 Inactive metolazone 2.5 mg tablet RxNorm: 760681 TAKE ONE TABLET BY MOUTH DAILY NEEDED FOR EDEMA 11/14/2016 12/12/2016 Inactive triamterene 75 mg-hydrochlorothiazide 50 mg tablet RxNorm: 3 38166 1 Tablet(s) PO QD 11/14/2016 07/18/2017 Inactive amitriptyline 50 mg tablet RxNorm: 097437 TAKE ONE TABL ET BY MOUTH AT BEDTIME NEEDED FOR SLEEP 11/14/2016 11/27/2016 Inactive Cymbalta 60 mg capsule,delayed release RxNorm: 751409 1 Capsule (s) PO QHS 11/14/2016 12/12/2016 Inactive clonidine HCl 0.1 mg tablet RxNorm: 739342 1 Tablet(s) PO QID 11/1304/04/2017 Inactive amitriptyline 50 mg tablet RxNorm: 056693 1 Tablet(s) P O QHS as needed for sleep 11/01/2016 11/27/2016 Inactive duloxetine 60 mg capsule,delayed release RxNorm: 286782 TAKE ONE CAPSULE BY MOUTH DAILY 10/20/2016 01/17/2017 Inactive allopurinol 300 mg tablet RxNorm: 872957 TAKE ONE TABLET BY LOPEZ TH DAILY 10/20/2016 01/16/2017 Inactive Lyrica 75 mg capsule RxNorm: 745888 TAKE ONE CAPSULE BY MOUTH EVERY NIGHT AT BEDTIME 10/20/2016 12/10/2016 Inactive Klor-Con 8 mEq tablet,extended release RxNorm: 926967 T FARRUKH ONE TABLET BY MOUTH TWICE A DAY 10/20/2016 01/17/2017 Inactive Celebrex 200 mg capsule RxNorm: 665011 TAKE ONE CAPSULE BY MOUT H TWICE A DAY 10/20/2016 07/18/2017 Inactive Bystolic 10 mg tablet RxNorm: 341269 TAKE ONE TABLET BY MOUTH EVERY NIGHT AT BEDTIME 10/20/2016 12/17/2016 Inactive amlodipine 5 mg-benazepril 20 mg capsule RxNorm: 255388 TAKE ONE CAPSULE BY MOUTH EVERY NIGHT AT BEDTIME -- TO REPLACE AMLODOPINE 10/20/20162016 Inactive Lipitor 10 mg tablet RxNorm: 032611 TAKE ONE TABLET BY MOUTH EVERY NIGHT AT BEDTIME 10/20/2016 01/17/2017 Inactive alprazolam 0.5 mg tablet RxNorm: 433185 3 Tablet(s) PO QHS as needed for sleep/anxiety 09/20/2016 10/31/2016 Inactive Tamiflu 75 mg capsule RxNorm: 454668 1 Capsule(s) PO QD 09/19/2016 Inactive Lyrica 75 mg capsule RxNorm: 748291 1 Capsule(s) PO QHS 09/19/2016 Inactive prednisone 20 mg tablet RxNorm: 478186 1 Tablet(s) PO QD 08/10/2016 1 10/17/2015 Inactive doxycycline hyclate 100 mg capsule RxNorm: 7063994 1 Capsule(s) PO BID 08/10/2016 08/19/2016 Inactive Medrol (Dustin) 4 mg tablets in a dose pack RxNorm: 125219 Tablet(s) PO As Directed 07/31/2016 08/22/2016 Inactive Singulair 10 mg tablet RxNorm: 420280 TAKE ONE TABLET BY MOUTH JOSÉ Y 07/27/2016 07/18/2017 Inactive hydrocodone 10 mg-acetaminophen 325 mg tablet RxNorm: 843169 1-2 Tablet(s) QID as needed for pain MUST LAST 30 DAYS 07/26/2016 08/24/2016 Inactive (Response to an electronic controlled substance refill request [id number]) alprazolam 0.5 mg tablet RxNorm: 034050 3 Tablet(s) PO QHS as needed for anxiety or sleep 07/26/2016 09/20/2016 Inactive clindamycin 300 mg capsule RxNorm: 318240 1 Capsule(s) PO TID 07/2007/29/2016 Inactive Diflucan 100 mg tablet RxNorm: 706277 1 Tablet(s) PO QD 07/20/2016 Inactive Levaquin 500 mg tablet RxNorm: 647251 1 Tablet(s) PO QD 07/17/2016 Inactive Levaquin 500 mg tablet RxNorm: 620865 1 Tablet(s) PO QD 07/10/2016 Inactive Levaquin 500 mg tablet RxNorm: 886214 1 Tablet(s) PO QD 07/10/2016 Inactive mupirocin 2 % topical ointment RxNorm: 183143 TOP Apply topically to affected areas twice daily 07/06/2016 09/18/2016 Inactive Singulair 10 mg tablet RxNorm: 779583 TAKE ONE TABLET BY MOUTH JOSÉ Y 06/21/2016 01/21/2019 Inactive alprazolam 0.5 mg tablet RxNorm: 635369 TAKE THREE TABL ETS BY MOUTH AT BEDTIME NEEDED FOR SLEEP OR STRESS 05/22/2016 06/20/2016 Inactive triamterene 75 mg-hydrochlorothiazide 50 mg tablet RxNorm: 3 16064 1 Tablet(s) PO QD 04/26/2016 10/21/2016 Inactive Premarin 1.25 mg tablet RxNorm: 631321 1-2 Tablet(s) PO QD 04/26/20 16 03/20/2017 Inactive Klor-Con 8 mEq tablet,extended release RxNorm: 565149 1 Tablet( s) PO BID 04/26/2016 10/19/2016 Inactive Celebrex 200 mg capsule RxNorm: 619598 1 Capsule(s) PO BID TAKE ONE CAPSULE BY MOUTH EVERY DAY 04/26/2016 10/19/2016 Inactive Lipitor 10 mg tablet RxNorm: 059301 1 Tablet(s) PO QHS 04/26/201605/2017 Inactive allopurinol 300 mg tablet RxNorm: 635211 1 Tablet(s) PO QD TAKE ONE TABLET BY MOUTH EVERY DAY 04/26/2016 10/19/2016 Inactive amlodipine 5 mg-benazepril 20 mg capsule RxNorm: 113025 1 Capsule(s) PO QHS replaces amlodopine 04/26/2016 10/19/2016 Inactive duloxetine 60 mg capsule,delayed release RxNorm: 053167 1 Capsu le(s) PO QD 04/26/2016 10/19/2016 Inactive Bystolic 10 mg tablet RxNorm: 753951 1 Tablet(s) PO QHS 04/26/2016 Inactive Singulair 10 mg tablet RxNorm: 583647 1 Tablet(s) PO QD TAKE ONE TABLET BY MOUTH DAILY 04/26/2016 06/20/2016 Inactive clonidine HCl 0.1 mg tablet RxNorm: 829470 1 Tablet(s) PO QID 04/2610/22/2016 Inactive hydrocodone 10 mg-acetaminophen 325 mg tablet RxNorm: 820303 1-2 Tablet(s) QID as needed for pain TAKE ONE TO TWO TABLETS BY MOUTH FOUR TIMES A DAY . MUST LAST 30 DAYS 03/31/2016 04/29/2016 Inactive (Response to an electronic controlled substance refill request - RxReferenceNumber: [id number]) Klor-Con 8 mEq tablet,extended release RxNorm: 325606 T FARRUKH ONE TABLET BY MOUTH TWICE A DAY 03/24/2016 09/29/2019 Inactive prednisone 20 mg tablet RxNorm: 699261 1 Tablet(s) PO QD 03/09/2016 0 03/08/2016 Inactive prednisone 20 mg tablet RxNorm: 625818 1 Tablet(s) PO QD 03/09/2016 0 03/13/2016 Inactive alprazolam 0.5 mg tablet RxNorm: 792504 3 Tablet(s) PO QHS as needed for sleep/stress 03/02/2016 01/21/2019 Inactive mupirocin 2 % topical ointment RxNorm: 906061 TOP twice daily to affected areas of face and neck 02/21/2016 04/25/2016 Inactive clonidine HCl 0.1 mg tablet RxNorm: 157704 TAKE ONE TAB LET BY MOUTH FOUR TIMES A DAY 02/15/2016 09/29/2019 Inactive clonidine HCl 0.1 mg tablet RxNorm: 103060 1 Tablet(s) PO QID 02/1404/25/2016 Inactive Premarin 1.25 mg tablet RxNorm: 450444 1-2 Tablet(s) PO QD 02/15/2003/15/2016 Inactive Klor-Con 8 mEq tablet,extended release RxNorm: 260140 T FARRUKH ONE TABLET BY MOUTH TWICE A DAY 02/15/2016 03/15/2016 Inactive potassium chloride ER 20 mEq tablet,extended release(part/cr yst) RxNorm: 474982 2 Tablet(s) PO BID 02/15/2016 03/15/2016 Inactive Macrobid 100 mg capsule RxNorm: 283138 1 Capsule(s) PO BID 01/24/20 16 01/30/2016 Inactive prednisone 20 mg tablet RxNorm: 863303 Take 3tabs PO QD x 2 days, then 2 tabs PO QD x 2 days, then 1 tab PO QD x 2 days, then 1/2 tab PO QDy x 2 days 12/23/2015 04/25/2016 Inactive Klor-Con 8 mEq tablet,extended release RxNorm: 919917 T FARRUKH ONE TABLET BY MOUTH TWICE A DAY 12/20/2015 02/14/2016 Inactive alprazolam 1 mg tablet RxNorm: 967656 1 1/2 Tablet(s) PO QHS 201501/23/2016 Inactive nystatin 100,000 unit/gram topical cream RxNorm: 855685 APPLY TO AFFECTED AREA(S) TWO TIMES A DAY 11/30/2015 12/14/2015 Inactive Singulair 10 mg tablet RxNorm: 604042 TAKE ONE TABLET BY MOUTH JOSÉ Y 11/18/2015 04/25/2016 Inactive allopurinol 300 mg tablet RxNorm: 939881 1 Tablet(s) PO QD TAKE ONE TABLET BY MOUTH EVERY DAY 10/26/2015 04/22/2016 Inactive Singulair 10 mg tablet RxNorm: 003309 TAKE ONE TABLET BY MOUTH JOSÉ Y 10/26/2015 11/17/2015 Inactive duloxetine 60 mg capsule,delayed release RxNorm: 842006 1 Capsu le(s) PO QD 10/26/2015 04/22/2016 Inactive triamterene 75 mg-hydrochlorothiazide 50 mg tablet RxNorm: 3 64872 1 Tablet(s) PO QD 10/26/2015 11/14/2016 Inactive potassium chloride ER 20 mEq tablet,extended release(part/cr yst) RxNorm: 731820 2 Tablet(s) PO BID 10/26/2015 02/14/2016 Inactive Lipitor 10 mg tablet RxNorm: 993115 1 Tablet(s) PO QHS 10/26/2015 Inactive amlodipine 5 mg-benazepril 20 mg capsule RxNorm: 785881 1 Capsule(s) PO QHS replaces amlodopine 10/26/2015 04/22/2016 Inactive Bystolic 10 mg tablet RxNorm: 980060 1 Tablet(s) PO QHS 10/26/2015 Inactive amlodipine 5 mg-benazepril 20 mg capsule RxNorm: 812101 1 Capsule(s) PO QHS replaces amlodopine 10/06/2015 10/25/2015 Inactive amlodipine 5 mg tablet RxNorm: 689697 1 Tablet(s) PO QHS 09/30/2015 0 04/25/2016 Inactive metolazone 2.5 mg tablet RxNorm: 377263 TAKE ONE TABLET BY MOUTH DAILY NEEDED FOR EDEMA 09/30/2015 01/21/2019 Inactive duloxetine 60 mg capsule,delayed release RxNorm: 174905 1 Capsu le(s) PO QD 09/30/2015 10/25/2015 Inactive cephalexin 500 mg capsule RxNorm: 160657 1 Capsule(s) PO BID 201509/23/2015 Inactive mupirocin 2 % topical ointment RxNorm: 191446 TOP twice daily to affected areas of face and neck 09/14/2015 02/20/2016 Inactive baclofen 20 mg tablet RxNorm: 376521 1 Tablet(s) PO TID as needed for muscle spasm 09/01/2015 11/14/2016 Inactive clonidine HCl 0.1 mg tablet RxNorm: 544697 1 Tablet(s) PO QID 09/0102/14/2016 Inactive alprazolam 1 mg tablet RxNorm: 266643 1 1/2 Tablet(s) PO QHS 201409/09/2015 Inactive baclofen 20 mg tablet RxNorm: 515607 1 Tablet(s) PO TID as needed for muscle spasm 07/23/2015 09/01/2015 Inactive omeprazole 40 mg capsule,delayed release RxNorm: 410191 1 Capsu le(s) PO QD 07/23/2015 04/25/2016 Inactive alprazolam 1 mg tablet RxNorm: 515932 1 1/2 Tablet(s) PO QHS 201408/10/2015 Inactive Bystolic 10 mg tablet RxNorm: 034604 1 Tablet(s) PO BID 06/24/2015 Inactive allopurinol 300 mg tablet RxNorm: 317131 1 Tablet(s) PO QD TAKE ONE TABLET BY MOUTH EVERY DAY 06/23/2015 10/20/2015 Inactive alprazolam 1 mg tablet RxNorm: 331123 1 1/2 Tablet(s) PO QHS 201407/06/2015 Inactive clonidine HCl 0.1 mg tablet RxNorm: 365827 1 Tablet(s) PO QID 06/0209/01/2015 Inactive clonidine HCl 0.1 mg tablet RxNorm: 297946 1 Tablet(s) PO QID 06/0206/01/2015 Inactive Cymbalta 60 mg capsule,delayed release RxNorm: 404932 1 Capsule (s) PO QHS 06/02/2015 08/30/2015 Inactive Cymbalta 60 mg capsule,delayed release RxNorm: 159639 1 Capsule (s) PO QHS 06/02/2015 06/01/2015 Inactive clonidine HCl 0.1 mg tablet RxNorm: 779015 1 Tablet(s) PO TID 05/3106/01/2015 Inactive replaces 0.2mg dose metolazone 2.5 mg tablet RxNorm: 828885 TAKE ONE TABLET BY MOUTH DAILY NEEDED FOR EDEMA 05/21/2015 06/19/2015 Inactive Singulair 10 mg tablet RxNorm: 056481 TAKE ONE TABLET BY MOUTH JOSÉ Y 05/21/2015 10/17/2015 Inactive Cymbalta 30 mg capsule,delayed release RxNorm: 904844 1 Capsule (s) PO QHS 05/20/2015 11/14/2016 Inactive betamethasone valerate 0.1 % topical cream RxNorm: 643235 Appli cation TOP BID 05/10/2015 04/25/2016 Inactive Bactroban 2 % topical ointment RxNorm: 537951 Application TOP BID 0 05/10/2015 06/20/2015 Inactive baclofen 20 mg tablet RxNorm: 325039 1 Tablet(s) PO TID as needed 0 04/26/2015 07/23/2015 Inactive Lipitor 10 mg tablet RxNorm: 470623 1 Tablet(s) PO QHS 04/26/201508/2016 Inactive clonidine HCl 0.1 mg tablet RxNorm: 635808 1 Tablet(s) PO TID 04/2605/30/2015 Inactive replaces 0.2mg dose Klor-Con 8 mEq tablet,extended release RxNorm: 502040 1 Tablet( s) PO BID 04/26/2015 04/25/2016 Inactive metolazone 2.5 mg tablet RxNorm: 201946 1 Tablet(s) PO QD as ne eded for edema 04/26/2015 04/25/2015 Inactive triamterene 75 mg-hydrochlorothiazide 50 mg tablet RxNorm: 3 40781 1 Tablet(s) PO QD 04/26/2015 10/22/2015 Inactive Premarin 1.25 mg tablet RxNorm: 422703 1-2 Tablet(s) PO QD 04/26/20 15 10/22/2015 Inactive Bystolic 10 mg tablet RxNorm: 411619 1 Tablet(s) PO QAM TAKE ONE TABLET BY MOUTH EVERY MORNING 04/23/2015 06/23/2015 Inactive clonidine HCl 0.1 mg tablet RxNorm: 857505 1 Tablet(s) PO TID 03/2304/25/2015 Inactive replaces 0.2mg dose nystatin 100,000 unit/gram topical cream RxNorm: 671787 Applica tion TOP BID 03/23/2015 06/20/2015 Inactive baclofen 20 mg tablet RxNorm: 906726 1 Tablet(s) PO TID as needed 0 03/23/2015 04/25/2015 Inactive Premarin 1.25 mg tablet RxNorm: 962155 1-2 Tablet(s) PO QD 03/23/20 15 04/25/2015 Inactive Klor-Con 8 mEq tablet,extended release RxNorm: 584723 1 Tablet( s) PO BID 03/23/2015 04/25/2015 Inactive cefdinir 300 mg capsule RxNorm: 046601 2 Capsule(s) PO QD 03/16/2015 03/25/2015 Inactive baclofen 20 mg tablet RxNorm: 256973 1 Tablet(s) PO TID as needed 0 03/02/2015 03/22/2015 Inactive allopurinol 300 mg tablet RxNorm: 272037 1 Tablet(s) PO QD TAKE ONE TABLET BY MOUTH EVERY DAY 02/22/2015 05/22/2015 Inactive Klor-Con M20 mEq tablet,extended release RxNorm: 105824 2 Tablet(s) PO BID to use with lasix 02/22/2015 06/20/2015 Inactive clonidine HCl 0.1 mg tablet RxNorm: 092344 1 Tablet(s) PO TID 02/1903/22/2015 Inactive replaces 0.2mg dose Lipitor 10 mg tablet RxNorm: 595952 1 Tablet(s) PO QHS 01/20/201506/2015 Inactive Lipitor 10 mg tablet RxNorm: 565655 1 Tablet(s) PO QHS 01/20/2015 Inactive Singulair 10 mg tablet RxNorm: 098570 1 Tablet(s) PO QD TAKE ONE TABLET BY MOUTH EVERY DAY 11/20/2014 05/18/2015 Inactive Lipitor 10 mg tablet RxNorm: 246659 1 Tablet(s) PO QHS 11/20/201408/2015 Inactive allopurinol 300 mg tablet RxNorm: 157357 1 Tablet(s) PO QD TAKE ONE TABLET BY MOUTH EVERY DAY 11/20/2014 02/16/2015 Inactive Bystolic 10 mg tablet RxNorm: 564081 1 Tablet(s) PO QAM TAKE ONE TABLET BY MOUTH EVERY MORNING 11/20/2014 04/22/2015 Inactive Klor-Con 8 mEq tablet,extended release RxNorm: 552946 1 Tablet( s) PO BID 11/20/2014 02/17/2015 Inactive baclofen 20 mg tablet RxNorm: 657479 1 Tablet(s) PO TID as needed 0 11/20/2014 01/21/2019 Inactive baclofen 20 mg tablet RxNorm: 405105 1 Tablet(s) PO TID as needed 0 10/27/2014 11/19/2014 Inactive baclofen 20 mg tablet RxNorm: 564422 1 Tablet(s) PO TID as needed 0 10/26/2014 03/01/2015 Inactive allopurinol 300 mg tablet RxNorm: 633282 1 Tablet(s) PO QD TAKE ONE TABLET BY MOUTH EVERY DAY 10/26/2014 11/20/2014 Inactive Bystolic 10 mg tablet RxNorm: 114247 1 Tablet(s) PO QAM TAKE ONE TABLET BY MOUTH EVERY MORNING 10/26/2014 11/20/2014 Inactive clonidine HCl 0.1 mg tablet RxNorm: 515111 1 Tablet(s) PO TID 09/2805/27/2019 Inactive replaces 0.2mg dose clonidine HCl 0.1 mg tablet RxNorm: 234452 1 Tablet(s) PO TID 09/2802/18/2015 Inactive replaces 0.2mg dose baclofen 20 mg tablet RxNorm: 360292 1 Tablet(s) PO TID as needed 1 11/01/2013 08/30/2014 Inactive Lipitor 10 mg tablet RxNorm: 407073 1 Tablet(s) PO QHS 08/31/2014 Inactive baclofen 20 mg tablet RxNorm: 595099 1 Tablet(s) PO TID as needed 1 11/01/2013 10/26/2014 Inactive triamterene 75 mg-hydrochlorothiazide 50 mg tablet RxNorm: 3 22144 1 Tablet(s) PO QD 08/31/2014 02/26/2015 Inactive Klor-Con 8 mEq tablet,extended release RxNorm: 491350 1 Tablet( s) PO BID 08/31/2014 11/20/2014 Inactive baclofen 20 mg tablet RxNorm: 715537 1 Tablet(s) PO TID as needed 1 09/30/2013 10/25/2014 Inactive baclofen 20 mg tablet RxNorm: 852846 1 Tablet(s) PO TID as needed 1 09/30/2013 08/31/2014 Inactive omeprazole 40 mg capsule,delayed release RxNorm: 935120 1 Capsu le(s) PO QD 07/21/2014 07/23/2015 Inactive Flonase 50 mcg/actuation nasal spray,suspension RxNorm: 8963 23 1 Julian NASAL BID 07/15/2014 04/09/2017 Inactive hydrocodone 10 mg-acetaminophen 325 mg tablet RxNorm: 259720 1-2 Tablet(s) QID as needed for pain TAKE ONE TO TWO TABLETS BY MOUTH FOUR TIMES A DAY . MUST LAST 30 DAYS 06/30/2014 07/27/2014 Inactive (Response to an electronic controlled substance refill request [facility] [id number]) baclofen 20 mg tablet RxNorm: 352561 1 Tablet(s) PO TID as needed 1 07/31/2014 Inactive Singulair 10 mg tablet RxNorm: 555455 1 Tablet(s) PO QD TAKE ONE TABLET BY MOUTH EVERY DAY 05/25/2014 11/20/2014 Inactive Bystolic 10 mg tablet RxNorm: 303758 TAKE ONE TABLET BY MOUTH E VERY MORNING 05/25/2014 09/21/2014 Inactive allopurinol 300 mg tablet RxNorm: 732036 1 Tablet(s) PO QD TAKE ONE TABLET BY MOUTH EVERY DAY 05/25/2014 10/21/2014 Inactive baclofen 20 mg tablet RxNorm: 911237 1 Tablet(s) PO TID as needed 0 05/25/2014 06/29/2014 Inactive allopurinol 300 mg tablet RxNorm: 437655 TAKE ONE TABLET BY LOPEZ TH EVERY DAY 05/25/2014 09/21/2014 Inactive Singulair 10 mg tablet RxNorm: 161646 1 Tablet(s) PO QD TAKE ONE TABLET BY MOUTH EVERY DAY 05/25/2014 05/24/2014 Inactive Bystolic 10 mg tablet RxNorm: 436596 1 Tablet(s) PO QAM TAKE ONE TABLET BY MOUTH EVERY MORNING 05/25/2014 10/21/2014 Inactive metolazone 2.5 mg tablet RxNorm: 433732 1 Tablet(s) PO QD as ne eded for edema 05/18/2014 04/25/2015 Inactive Lasix 40 mg tablet RxNorm: 802583 1 Tablet(s) PO QAM s hould take potassium supplementation with this medication 05/14/2014 05/17/2014 Inactive hydrocodone 10 mg-acetaminophen 325 mg tablet RxNorm: 952527 1-2 Tablet(s) QID as needed for pain TAKE ONE TO TWO TABLETS BY MOUTH FOUR TIMES A DAY . MUST LAST 30 DAYS 05/07/2014 06/05/2014 Inactive (Response to an electronic controlled substance refill request - RxReferenceNumber: [id number]) alprazolam 0.5 mg tablet RxNorm: 596797 TAKE ONE TABLET BY MOUTH TWICE A DAY , MUST LAST 30 DAYS 05/07/2014 05/22/2016 Inactive (Response to a n electronic controlled substance refill request - RxReferenceNumber: [id number]) diclofenac sodium 75 mg tablet,delayed release RxNorm: 22680 6 1 Tablet(s) PO BID for pain 04/24/2014 07/20/2014 Inactive Celebrex 200 mg capsule RxNorm: 039406 TAKE ONE CAPSULE BY MOUT H EVERY DAY 04/24/2014 07/20/2014 Inactive alprazolam 0.5 mg tablet RxNorm: 966137 TAKE ONE TABLET BY MOUTH TWICE A DAY , MUST LAST 30 DAYS 03/24/2014 04/22/2014 Inactive (Response to a n electronic controlled substance refill request - RxReferenceNumber: [id number]) diclofenac sodium 75 mg tablet,delayed release RxNorm: 81288 6 1 Tablet(s) PO BID for pain 03/24/2014 04/24/2014 Inactive clonidine HCl 0.1 mg tablet RxNorm: 106128 1 Tablet(s) PO TID 03/2409/28/2014 Inactive replaces 0.2mg dose Klor-Con 8 mEq tablet,extended release RxNorm: 183942 1 Tablet( s) PO BID 02/26/2014 08/31/2014 Inactive diclofenac sodium 75 mg tablet,delayed release RxNorm: 88013 6 1 Tablet(s) PO BID for pain 02/25/2014 03/24/2014 Inactive hydrocodone 10 mg-acetaminophen 325 mg tablet RxNorm: 078886 1-2 Tablet(s) QID as needed for pain TAKE ONE TO TWO TABLETS BY MOUTH FOUR TIMES A DAY . MUST LAST 30 DAYS 02/25/2014 03/26/2014 Inactive (Response to an electronic controlled substance refill request - RxReferenceNumber: [id number]) alprazolam 0.5 mg tablet RxNorm: 477556 Tablet(s) PO BI D as needed for anxiety TAKE ONE TABLET BY MOUTH TWICE A DAY , MUST LAST 30 DAYS 02/25/2014 Inactive (Response to an electronic controlled [place] bstance refill request - RxReferenceNumber: [id number]) [AttnRPh: Saving apply/adjudicate RxGRP:SG20 RxBIN:[id number] RxPCN: ID#:[id number]] alprazolam 0.5 mg tablet RxNorm: 786789 Tablet(s) TAKE ONE TABLET BY MOUTH TWICE A DAY , MUST LAST 30 DAYS 01/27/2014 02/24/2014 Inactive (Respo nse to an electronic controlled substance refill request - RxReferenceNumber: [id number]) [AttnRPh: Saving apply/adjudicate RxGRP:SG20 RxBIN:[id number] RxPCN: ID#:[id number]] hydrocodone 10 mg-acetaminophen 325 mg tablet RxNorm: 763905 1-2 Tablet(s) QID as needed for pain TAKE ONE TO TWO TABLETS BY MOUTH FOUR TIMES A DAY . MUST LAST 30 DAYS 01/27/2014 02/24/2014 Inactive (Response to an electronic controlled substance refill request - RxReferenceNumber: [id number]) alprazolam 0.5 mg tablet RxNorm: 415087 TAKE ONE TABLET BY MOUTH TWICE A DAY , MUST LAST 30 DAYS 01/27/2014 01/26/2014 Inactive (Response to a n electronic controlled substance refill request - RxReferenceNumber: [id number]) Premarin 1.25 mg tablet RxNorm: 771112 1-2 Tablet(s) PO QD 01/28/20 14 07/25/2014 Inactive alprazolam 0.5 mg tablet RxNorm: 106788 TAKE ONE TABLET BY MOUTH TWICE A DAY , MUST LAST 30 DAYS 01/27/2014 01/27/2014 Inactive (Response to a n electronic controlled substance refill request - RxReferenceNumber: [id number]) hydrocodone 10 mg-acetaminophen 325 mg tablet RxNorm: 600206 TAKE ONE TO TWO TABLETS BY MOUTH FOUR TIMES A DAY . MUST LAST 30 DAYS 01/27/20142013 Inactive (Response to an electronic controlled [place] bstance refill request - RxReferenceNumber: [id number]) Celebrex 200 mg capsule RxNorm: 186496 1 Capsule(s) PO QD TAKE ONE CAPSULE BY MOUTH EVERY DAY 12/29/2013 04/27/2014 Inactive hydrocodone 10 mg-acetaminophen 325 mg tablet RxNorm: 376109 1-2 Tablet(s) PO QID as needed for severe pain 12/29/2013 01/27/2014 Inactive allopurinol 300 mg tablet RxNorm: 498055 1 Tablet(s) PO QD TAKE ONE TABLET BY MOUTH EVERY DAY 12/29/2013 05/24/2014 Inactive alprazolam 0.5 mg tablet RxNorm: 315551 TAKE ONE TABLET BY MOUTH TWICE A DAY , MUST LAST 30 DAYS 12/29/2013 01/27/2014 Inactive (Response to a n electronic controlled substance refill request - RxReferenceNumber: [id number]) Celebrex 200 mg capsule RxNorm: 926881 1 Capsule(s) PO QD TAKE ONE CAPSULE BY MOUTH EVERY DAY 12/29/2013 12/29/2013 Inactive Bystolic 10 mg tablet RxNorm: 368483 1 Tablet(s) PO QAM TAKE ONE TABLET BY MOUTH EVERY MORNING 12/29/2013 05/24/2014 Inactive Bystolic 10 mg tablet RxNorm: 976021 1 Tablet(s) PO QAM TAKE ONE TABLET BY MOUTH EVERY MORNING 12/29/2013 12/29/2013 Inactive Singulair 10 mg tablet RxNorm: 846101 1 Tablet(s) PO QD TAKE ONE TABLET BY MOUTH EVERY DAY 12/29/2013 05/25/2014 Inactive hydrocodone 10 mg-acetaminophen 325 mg tablet RxNorm: 555256 TAKE ONE TO TWO TABLETS BY MOUTH FOUR TIMES A DAY . MUST LAST 30 DAYS 12/29/20132013 Inactive (Response to an electronic controlled [place] bstance refill request - RxReferenceNumber: [id number]) Trazadone 75mg Tablet RxNorm: 1 Tablet(s) PO QHS as needed 03/23/2014 Inactive Trazadone 75mg Tablet RxNorm: 1 Tablet(s) PO QHS 12/24/20132014 Inactive Soma 350 mg tablet RxNorm: 900379 Tablet(s) PO TAKE ON E TABLET BY MOUTH THREE TIMES A DAY NEEDED FOR MUSCLE SPASMS. THIS MUST LAST 30 DAYS BETWEEN REFILLS. 12/10/2013 12/22/2013 Inactive (Appended: Cont rolled substance eRx refill - RxReferenceNumber: [id number]) diclofenac sodium 75 mg tablet,delayed release RxNorm: 89913 6 1 Tablet(s) PO BID for pain 12/10/2013 02/24/2014 Inactive allopurinol 300 mg tablet RxNorm: 368413 1 Tablet(s) PO QD 11/20/19 14 12/29/2013 Inactive alprazolam 0.5 mg tablet RxNorm: 072070 2 Tablet(s) PO BID 11/13/19 14 12/29/2013 Inactive prn clonidine 0.1 mg tablet RxNorm: 786473 1 Tablet(s) PO TID 11/12/2013 02/09/2014 Inactive replaces 0.2mg dose Klor-Con M20 mEq tablet,extended release RxNorm: 875980 2 Tablet(s) PO BID to use with lasix 11/12/2013 05/10/2014 Inactive Singulair 10 mg tablet RxNorm: 606345 1 Tablet(s) PO QD 11/12/2013 Inactive hydrocodone 10 mg-acetaminophen 325 mg tablet RxNorm: 171453 1-2 Tablet(s) PO QID as needed for severe pain 11/12/2013 12/28/2013 Inactive Bystolic 10 mg tablet RxNorm: 612249 1 Tablet(s) PO QAM 11/12/2013 Inactive Soma 350 mg tablet RxNorm: 734248 Tablet(s) PO TAKE ON E TABLET BY MOUTH THREE TIMES A DAY NEEDED FOR MUSCLE SPASMS. THIS MUST LAST 30 DAYS BETWEEN REFILLS. 10/13/2013 12/10/2013 Inactive (Appended: Cont rolled substance eRx refill - RxReferenceNumber: [id number]) hydrocodone 10 mg-acetaminophen 325 mg tablet RxNorm: 186309 1-2 Tablet(s) PO QID as needed for severe pain 10/03/2013 11/11/2013 Inactive diclofenac sodium 75 mg tablet,delayed release RxNorm: 37026 8 1 Tablet(s) PO BID for pain 09/11/2013 12/10/2013 Inactive alprazolam 0.5 mg tablet RxNorm: 521006 1 Tablet(s) PO BID May refill on 04/26/13 09/01/2013 10/30/2013 Inactive prn hydrocodone 10 mg-acetaminophen 325 mg tablet RxNorm: 276022 1-2 Tablet(s) PO QID as needed for severe pain 09/01/2013 10/02/2013 Inactive triamterene 75 mg-hydrochlorothiazide 50 mg tablet RxNorm: 3 58468 1 Tablet(s) PO QD 08/04/2013 08/31/2014 Inactive cyclobenzaprine 10 mg tablet RxNorm: 303409 1 Tablet(s) PO TID prn spasm 08/04/2013 08/13/2013 Inactive clonidine 0.1 mg tablet RxNorm: 474554 1 Tablet(s) PO TID 08/04/2013 11/11/2013 Inactive replaces 0.2mg dose cyclobenzaprine 10 mg tablet RxNorm: 235783 1 Tablet(s) PO TID prn spasm 07/23/2013 08/01/2013 Inactive hydrocodone 10 mg-acetaminophen 325 mg tablet RxNorm: 207841 2 1-2 Tablet(s) PO QID as needed for severe pain 06/09/2013 08/07/2013 Inactive Singulair 10 mg tablet RxNorm: 928934 1 Tablet(s) PO QD 05/29/2013 Inactive Klor-Con 8 mEq tablet,extended release RxNorm: 619432 1 Tablet( s) PO BID 05/29/2013 02/26/2014 Inactive allopurinol 300 mg tablet RxNorm: 115037 1 Tablet(s) PO QD 05/29/20 13 11/19/2013 Inactive Bystolic 10 mg tablet RxNorm: 061665 1 Tablet(s) PO QAM take one daily in the morning. 05/29/2013 11/11/2013 Inactive scopolamine 1.5 mg 72 hr Transderm Patch RxNorm: 609906 Application TD Q72H for motion sickness 05/26/2013 07/22/2013 Inactive Soma 350 mg tablet RxNorm: 591310 1 Tablet(s) PO TID as needed for spasm 05/19/2013 10/13/2013 Inactive diclofenac sodium 75 mg tablet,delayed release RxNorm: 34157 8 1 Tablet(s) PO BID for pain 05/14/2013 07/22/2013 Inactive allopurinol 300 mg tablet RxNorm: 218757 1 Tablet(s) PO QD 04/25/20 13 05/28/2013 Inactive alprazolam 0.5 mg tablet RxNorm: 656301 1 Tablet(s) PO BID May refill on 04/26/13 04/25/2013 06/23/2013 Inactive prn Celebrex 200 mg capsule RxNorm: 767909 1 Capsule(s) PO QD 04/16/2013 12/29/2013 Inactive alprazolam 0.5 mg tablet RxNorm: 576800 1 Tablet(s) PO BID May refill on 04/26/13 04/16/2013 04/24/2013 Inactive prn Soma 350 mg tablet RxNorm: 701357 1 Tablet(s) PO TID as needed for spasm 04/16/2013 No Stop Date Active Lasix 40 mg tablet RxNorm: 499537 1 Tablet(s) PO QAM s rajwinderuld take potassium supplementation with this medication 04/16/2013 06/14/2013 Inactive clonidine 0.1 mg tablet RxNorm: 828167 1 Tablet(s) PO TID 04/16/2013 08/03/2013 Inactive replaces 0.2mg dose prednisone 20 mg tablet RxNorm: 513365 1 Tablet(s) PO BID 04/16/2013 04/20/2013 Inactive diclofenac sodium 75 mg tablet,delayed release RxNorm: 12703 8 1 Tablet(s) PO BID for pain 04/14/2013 05/13/2013 Inactive hydrocodone 10 mg-acetaminophen 325 mg tablet RxNorm: 456758 2 1-2 Tablet(s) PO QID as needed for severe pain 04/14/2013 No Stop Date Active Lasix 40 mg tablet RxNorm: 138324 1 Tablet(s) PO QAM s hould take potassium supplementation with this medication 03/31/2013 04/15/2013 Inactive Celebrex 200 mg capsule RxNorm: 490635 1 Capsule(s) PO QD 03/31/2013 04/15/2013 Inactive alprazolam 0.5 mg tablet RxNorm: 474941 1 Tablet(s) PO BID 03/28/20 13 04/15/2013 Inactive prn hydrocodone 10 mg-acetaminophen 325 mg tablet RxNorm: 705516 2 1-2 Tablet(s) PO QID as needed for severe pain 03/10/2013 No Stop Date Active metformin ER 500 mg 24 hr tablet,extended release RxNorm: 86 1018 1 Tablet(s) PO QD 03/06/2013 07/22/2013 Inactive clindamycin 300 mg capsule RxNorm: 527612 2 Capsule(s) PO TID 03/0503/14/2013 Inactive Zaroxolyn 2.5 mg tablet RxNorm: 807651 1 Tablet(s) PO QAM 03/05/2013 05/19/2015 Inactive amlodipine 10 mg tablet RxNorm: 991399 1 Tablet(s) PO QD 03/03/2013 0 05/25/2013 Inactive Norvasc 10 mg tablet RxNorm: 172938 1 Tablet(s) PO QD 02/28/201307/11 Inactive Celebrex 200 mg capsule RxNorm: 309808 1 Capsule(s) PO QD 02/28/2013 03/30/2013 Inactive diclofenac sodium 75 mg tablet,delayed release RxNorm: 73445 8 1 Tablet(s) PO BID for pain 02/14/2013 03/15/2013 Inactive Soma 350 mg tablet RxNorm: 361983 1 Tablet(s) PO TID as needed for spasm 02/14/2013 No Stop Date Active hydrocodone 10 mg-acetaminophen 325 mg tablet RxNorm: 862217 2 1-2 Tablet(s) PO QID as needed for severe pain 02/14/2013 No Stop Date Active Norvasc 10 mg tablet RxNorm: 593285 1 Tablet(s) PO QD 02/10/201302/09 Inactive Celebrex 200 mg capsule RxNorm: 205469 1 Capsule(s) PO QD 01/27/2013 01/26/2013 Inactive Premarin 1.25 mg tablet RxNorm: 214901 1-2 Tablet(s) PO QD 01/28/20 13 06/25/2013 Inactive alprazolam 0.5 mg tablet RxNorm: 007383 1 Tablet(s) PO BID 01/28/20 13 02/25/2013 Inactive prn amlodipine 5 mg tablet RxNorm: 260691 1 Tablet(s) PO QD 01/27/2013 Inactive Celebrex 200 mg capsule RxNorm: 356705 1 Capsule(s) PO QD 01/27/2013 02/27/2013 Inactive gabapentin 600 mg tablet RxNorm: 013265 1 Tablet(s) PO QHS 01/16/20 13 07/22/2013 Inactive Soma 350 mg tablet RxNorm: 943355 1 Tablet(s) PO TID as needed for spasm 01/15/2013 No Stop Date Active hydrocodone 10 mg-acetaminophen 325 mg tablet RxNorm: 423047 2 1-2 Tablet(s) PO QID as needed for severe pain 01/15/2013 No Stop Date Active Soma 350 mg tablet RxNorm: 102366 1 Tablet(s) PO TID as needed for spasm 01/13/2013 No Stop Date Active alprazolam 0.5 mg tablet RxNorm: 127176 1 Tablet(s) PO BID 12/31/19 13 01/26/2013 Inactive prn diclofenac sodium 75 mg tablet,delayed release RxNorm: 79950 8 1 Tablet(s) PO BID for pain 12/09/2012 01/07/2013 Inactive gabapentin 600 mg tablet RxNorm: 966691 1 Tablet(s) PO QHS 12/10/19 13 01/07/2013 Inactive hydrocodone 10 mg-acetaminophen 325 mg tablet RxNorm: 873380 2 1-2 Tablet(s) PO QID as needed for severe pain 12/02/2012 No Stop Date Active Levaquin 750 mg tablet RxNorm: 946387 1 Tablet(s) PO QD 11/21/2012 Inactive Singulair 10 mg tablet RxNorm: 230002 1 Tablet(s) PO QD 11/11/2012 Inactive clonidine 0.2 mg tablet RxNorm: 210323 1 Tablet(s) PO TID 11/11/2012 04/15/2013 Inactive alprazolam 0.5 mg tablet RxNorm: 547465 1 Tablet(s) PO BID 11/12/19 13 12/10/2012 Inactive prn Klor-Con 8 mEq tablet,extended release RxNorm: 226693 1 Tablet( s) PO BID 11/11/2012 03/04/2013 Inactive hydrocodone 10 mg-acetaminophen 325 mg tablet RxNorm: 079485 2 1-2 Tablet(s) PO QID as needed for severe pain 11/06/2012 No Stop Date Active alprazolam 0.5 mg tablet RxNorm: 839386 1 Tablet(s) PO BID 10/15/19 13 11/10/2012 Inactive prn hydrocodone-acetaminophen 10 mg-325 mg tablet RxNorm: 606163 2 1-2 Tablet(s) PO QID as needed for severe pain 10/10/2012 10/09/2012 Inactive allopurinol 300 mg tablet RxNorm: 448758 1 Tablet(s) PO QD 09/20/19 13 12/18/2012 Inactive alprazolam 0.5 mg tablet RxNorm: 394105 1 Tablet(s) PO BID 09/17/19 13 10/14/2012 Inactive prn hydrocodone-acetaminophen 10 mg-325 mg tablet RxNorm: 725278 2 1-2 Tablet(s) PO QID as needed for severe pain 08/22/2012 08/21/2012 Inactive Norvasc 10 mg tablet RxNorm: 157732 1 Tablet(s) PO QD 08/12/201201/10 Inactive Premarin 1.25 mg tablet RxNorm: 402332 1-2 Tablet(s) PO QD 07/30/20 12 12/26/2012 Inactive alprazolam 0.5 mg tablet RxNorm: 305112 1 Tablet(s) PO BID 07/29/20 12 08/27/2012 Inactive prn Klor-Con 8 mEq tablet,extended release RxNorm: 125840 1 Tablet( s) PO BID 07/29/2012 11/10/2012 Inactive hydrocodone-acetaminophen 10 mg-325 mg tablet RxNorm: 129228 2 1-2 Tablet(s) PO QID as needed for severe pain 07/29/2012 No Stop Date Active Premarin 1.25 mg tablet RxNorm: 571431 1-2 Tablet(s) PO QD 07/29/20 12 07/29/2012 Inactive clonidine 0.2 mg tablet RxNorm: 103583 1 Tablet(s) PO TID 07/29/2012 10/28/2012 Inactive ketorolac 10 mg tablet RxNorm: 039536 1 Tablet(s) PO QID prn he adache 07/18/2012 No Stop Date Active hydrocodone-acetaminophen 10 mg-325 mg tablet RxNorm: 105902 2 1-2 Tablet(s) PO QID as needed for severe pain 07/03/2012 No Stop Date Active amlodipine 5 mg tablet RxNorm: 725337 1 Tablet(s) PO QD 07/02/2012 Inactive allopurinol 300 mg tablet RxNorm: 178770 1 Tablet(s) PO QD 07/02/2009/19/2012 Inactive Celebrex 200 mg capsule RxNorm: 589661 1 Capsule(s) PO QD for j oint pain 06/26/2012 10/23/2012 Inactive diclofenac sodium 75 mg tablet,delayed release RxNorm: 11497 8 1 Tablet(s) PO BID for pain 06/19/2012 09/16/2012 Inactive hydrocodone-acetaminophen 10 mg-325 mg tablet RxNorm: 632835 2 1-2 Tablet(s) PO QID as needed for severe pain 06/10/2012 No Stop Date Active alprazolam 0.5 mg tablet RxNorm: 552499 1 Tablet(s) PO BID 06/03/20 12 07/02/2012 Inactive prn ketorolac 10 mg tablet RxNorm: 516834 1 Tablet(s) PO Q8H 05/27/2012 0 01/21/2019 Inactive as needed for headache hydrocodone-acetaminophen 10 mg-325 mg tablet RxNorm: 373059 2 1-2 Tablet(s) PO QID as needed for severe pain 05/15/2012 No Stop Date Active allopurinol 300 mg tablet RxNorm: 554146 1 Tablet(s) PO QD 05/14/20 12 06/12/2012 Inactive allopurinol 300 mg tablet RxNorm: 597730 1 Tablet(s) PO QD 05/14/20 12 05/13/2012 Inactive amlodipine 5 mg tablet RxNorm: 434740 1 Tablet(s) PO QD 05/01/2012 Inactive amlodipine 5 mg Tab RxNorm: 363339 1 Tablet(s) PO QD 05/01/201204/30 Inactive Celebrex 200 mg capsule RxNorm: 396169 1 Capsule(s) PO QD for j oint pain 05/01/2012 06/25/2012 Inactive Singulair 10 mg tablet RxNorm: 770315 1 Tablet(s) PO QD 05/01/2012 Inactive alprazolam 0.5 mg tablet RxNorm: 958501 1 Tablet(s) PO BID 05/01/2005/30/2012 Inactive prn Celebrex 200 mg Cap RxNorm: 882565 1 Capsule(s) PO QD for joint radu n 05/01/2012 04/30/2012 Inactive hydrocodone-acetaminophen 10 mg-325 mg tablet RxNorm: 200885 2 1-2 Tablet(s) PO QID as needed for severe pain 04/19/2012 No Stop Date Active Lasix 40 mg tablet RxNorm: 984916 1 Tablet(s) PO CORTEZM alan ashley take potassium supplementation with this medication 04/05/2012 06/03/2012 Inactive alprazolam 0.5 mg Tab RxNorm: 275793 1 Tablet(s) PO BID 04/05/2012 Inactive prn hydrocodone-acetaminophen 10 mg-325 mg Tab RxNorm: 6580282 1-2 Tablet(s) PO QID as needed for severe pain 03/25/2012 03/24/2012 Inactive clonidine 0.2 mg Tab RxNorm: 026252 1 Tablet(s) PO TID 03/08/2012 Inactive alprazolam 0.5 mg Tab RxNorm: 705750 1 Tablet(s) PO BID 03/08/2012 Inactive prn Soma 350 mg tablet RxNorm: 508687 1 Tablet(s) PO TID for spasm 02/0903/18/2012 Inactive clonidine 0.2 mg tablet RxNorm: 198789 1 Tablet(s) PO TID 03/08/2012 07/28/2012 Inactive Celebrex 200 mg Cap RxNorm: 196335 1 Capsule(s) PO QD for joint radu n 03/01/2012 04/29/2012 Inactive amlodipine 5 mg Tab RxNorm: 449123 1 Tablet(s) PO QD 02/26/201202/24 Inactive amlodipine 5 mg Tab RxNorm: 102538 1 Tablet(s) PO QD 02/26/201204/25 Inactive Bactroban 2 % Ointment RxNorm: 930050 Application TOP QID to sores 02/23/2012 No Stop Date Active amlodipine 2.5 mg tablet RxNorm: 346628 1 Tablet(s) PO QHS 02/20/20 12 02/25/2012 Inactive doxycycline hyclate 100 mg Cap RxNorm: 0408616 1 Capsule(s) PO BID 02/20/2012 02/29/2012 Inactive hydrocodone-acetaminophen 10 mg-325 mg Tab RxNorm: 5395690 1-2 T ablet(s) PO QID 02/08/2012 No Stop Date Active alprazolam 0.5 mg Tab RxNorm: 905814 1 Tablet(s) PO BID 02/08/2012 Inactive prn Singulair 10 mg Tab RxNorm: 033780 1 Tablet(s) PO QD 02/08/201204/30 Inactive Soma 350 mg Tab RxNorm: 079092 1 Tablet(s) PO TID for spasm 03/07/2012 Inactive Soma 350 mg Tab RxNorm: 103719 1 Tablet(s) PO TID for spasm 02/05/2012 Inactive diclofenac sodium 75 mg tablet,delayed release RxNorm: 17456 8 1 Tablet(s) PO BID for pain 02/01/2012 03/18/2012 Inactive Celebrex 200 mg Cap RxNorm: 811817 1 Capsule(s) PO QD for joint radu n 01/30/2012 02/28/2012 Inactive Lasix 40 mg Tab RxNorm: 896144 1 Tablet(s) PO QAM 01/24/2012 03/18/20 12 Inactive potassium chloride ER 20 mEq tablet,extended release(part/cr yst) RxNorm: 618046 2 Tablet(s) PO BID 01/24/2012 02/22/2012 Inactive alprazolam 0.5 mg Tab RxNorm: 974558 1 Tablet(s) PO BID 01/11/2012 Inactive prn hydrocodone-acetaminophen 10 mg-325 mg Tab RxNorm: 3582220 1-2 T ablet(s) PO QID 01/11/2012 No Stop Date Active Ambien 10 mg Tab RxNorm: 304079 1 Tablet(s) PO QHS 01/11/2012 012 Inactive Klor-Con 8 mEq Tab RxNorm: 133979 1 Tablet(s) PO BID 01/11/201201/22 Inactive diclofenac sodium 75 mg Tab, Delayed Release RxNorm: 752425 1 Tablet(s) PO BID for pain 01/10/2012 01/31/2012 Inactive Ambien 10 mg Tab RxNorm: 928091 1 Tablet(s) PO QHS 12/11/2011 012 Inactive alprazolam 0.5 mg Tab RxNorm: 562819 1 Tablet(s) PO BID 12/11/2011 Inactive prn hydrocodone 10 mg-acetaminophen 325 mg tablet RxNorm: 456849 1-2 Tablet(s) PO TID 11/28/2011 No Stop Date Active as needed for pa in - Previous quantity #240, will start dosing for #180 in April 2011 per Doctor Td. Ambien 10 mg Tab RxNorm: 800977 1 Tablet(s) PO QHS 11/09/2011 012 Inactive alprazolam 0.5 mg Tab RxNorm: 708835 1 Tablet(s) PO BID 11/09/2011 Inactive prn hydrocodone-acetaminophen 10 mg-325 mg Tab RxNorm: 8708476 1-2 T ablet(s) PO TID 11/06/2011 No Stop Date Active as needed for pain - Previous quantity #240, will start dosing for #180 in April 2011 per Doctor Td. Singulair 10 mg Tab RxNorm: 875126 1 Tablet(s) PO QD 10/13/201110/12 Inactive Singulair 10 mg Tab RxNorm: 404138 1 Tablet(s) PO QD 10/13/201102/06 Inactive hydrocodone-acetaminophen 10 mg-325 mg Tab RxNorm: 7860374 1-2 T ablet(s) PO TID 10/10/2011 10/09/2011 Inactive as needed for pain - Previous quantity #240, will start dosing for #180 in April 2011 per Doctor Td. hydrocodone-acetaminophen 10 mg-325 mg Tab RxNorm: 9688613 1-2 T ablet(s) PO TID 10/09/2011 No Stop Date Active as needed for pain - Previous quantity #240, will start dosing for #180 in April 2011 per Doctor Td. Klor-Con 8 mEq Tab RxNorm: 657209 1 Tablet(s) PO BID 10/02/201101/09 Inactive triamterene 75 mg-hydrochlorothiazide 50 mg tablet RxNorm: 3 04471 1 Tablet(s) PO QD 09/14/2011 03/06/2013 Inactive Ambien 10 mg Tab RxNorm: 183126 1 Tablet(s) PO QHS 09/14/2011 012 Inactive hydrocodone-acetaminophen 10 mg-325 mg Tab RxNorm: 8237365 1-2 T ablet(s) PO TID 09/14/2011 No Stop Date Active as needed for pain - Previous quantity #240, will start dosing for #180 in April 2011 per Doctor Td. alprazolam 0.5 mg Tab RxNorm: 915626 1 Tablet(s) PO BID 09/14/2011 Inactive prn Zithromax 500 mg Tab RxNorm: 291755 1 Tablet(s) PO QD 09/13/201109/10 Inactive prednisone 20 mg Tab RxNorm: 689912 1 Tablet(s) PO BID 08/31/2011 Inactive Ambien 10 mg Tab RxNorm: 681599 1 Tablet(s) PO QHS 08/17/2011 011 Inactive hydrocodone-acetaminophen 10 mg-325 mg Tab RxNorm: 2444011 1-2 T ablet(s) PO TID 08/17/2011 No Stop Date Active as needed for pain - Previous quantity #240, will start dosing for #180 in April 2011 per Doctor Td. clonidine 0.2 mg Tab RxNorm: 247509 1 Tablet(s) PO TID 08/17/201112/2011 Inactive Ambien 10 mg Tab RxNorm: 866696 1 Tablet(s) PO QHS 08/17/2011 019 Inactive alprazolam 0.5 mg Tab RxNorm: 966942 1 Tablet(s) PO BID 08/17/2011 Inactive prn hydrocodone-acetaminophen 10 mg-325 mg Tab RxNorm: 8952922 1-2 T ablet(s) PO TID 08/17/2011 08/16/2011 Inactive as needed for pain - Previous quantity #240, will start dosing for #180 in April 2011 per Doctor Td. Singulair 10 mg Tab RxNorm: 036658 1 Tablet(s) PO QD 08/17/201108/16 Inactive Klor-Con 8 mEq Tab RxNorm: 191580 1 Tablet(s) PO QD 08/17/20112011 Inactive alprazolam 0.5 mg Tab RxNorm: 257698 1 Tablet(s) PO BID 07/20/2011 Inactive prn Ambien 10 mg Tab RxNorm: 332213 1 Tablet(s) PO QHS 07/20/2011 012 Inactive Singulair 10 mg Tab RxNorm: 501758 1 Tablet(s) PO QD 07/20/201107/19 Inactive Premarin 1.25 mg tablet RxNorm: 409146 2 Tablet(s) PO QD 07/20/2011 0 01/21/2019 Inactive Premarin 1.25 mg tablet RxNorm: 096362 1-2 Tablet(s) PO QD 07/20/20 11 12/16/2011 Inactive Premarin 1.25 mg Tab RxNorm: 661312 1-2 Tablet(s) PO QD 07/06/2011 Inactive alprazolam 0.5 mg Tab RxNorm: 294922 1 Tablet(s) PO BID 06/22/2011 Inactive prn alprazolam 0.5 mg Tab RxNorm: 170130 1 Tablet(s) PO BID 06/22/2011 Inactive prn Premarin 1.25 mg Tab RxNorm: 546784 1 Tablet(s) PO QD m ay do 90 day fill if desired 06/22/2011 07/05/2011 Inactive hydrocodone-acetaminophen 10 mg-325 mg Tab RxNorm: 4334726 1-2 T ablet(s) PO TID 06/22/2011 No Stop Date Active as needed for pain - Previous quantity #240, will start dosing for #180 in April 2011 per Doctor Td. clonidine 0.2 mg Tab RxNorm: 681032 1 Tablet(s) PO TID 05/25/201103/2011 Inactive triamterene-hydrochlorothiazide 75 mg-50 mg Tab RxNorm: 3108 18 1 Tablet(s) PO QD 05/25/2011 09/13/2011 Inactive alprazolam 0.5 mg Tab RxNorm: 449170 1 Tablet(s) PO BID 05/25/2011 Inactive prn hydrocodone-acetaminophen 10 mg-325 mg Tab RxNorm: 3099811 1-2 T ablet(s) PO TID 05/25/2011 No Stop Date Active as needed for pain - Previous quantity #240, will start dosing for #180 in April 2011 per Doctor Td. Robaxin-750 750 mg Tab RxNorm: 342844 2 Tablet(s) PO QHS 05/22/2011 1 Inactive prn spasm hydrocodone-acetaminophen 10 mg-325 mg Tab RxNorm: 9392548 1-2 T ablet(s) PO TID 04/26/2011 No Stop Date Active as needed for pain - Previous quantity #240, will start dosing for #180 in April 2011 per Doctor Td. alprazolam 0.5 mg Tab RxNorm: 086543 1 Tablet(s) PO BID 04/25/2011 Inactive prn Klor-Con 8 mEq Tab RxNorm: 547383 1 Tablet(s) PO QD 03/30/20112010 Inactive Klor-Con 8 mEq Tab RxNorm: 879971 1 Tablet(s) PO QD 03/29/20112010 Inactive hydrocodone-acetaminophen 10 mg-325 mg Tab RxNorm: 4303024 1-2 T ablet(s) PO TID 03/20/2011 04/25/2011 Inactive as needed for pain - Previous quantity #240, will start dosing for #180 in April 2011 per Doctor Td. alprazolam 0.5 mg Tab RxNorm: 458324 1 Tablet(s) PO BID prn 011 03/30/2011 Inactive Ambien 10 mg Tab RxNorm: 953641 1 Tablet(s) PO QHS 03/01/2011 011 Inactive cyclobenzaprine 10 mg Tab RxNorm: 841729 1 Tablet(s) PO TID 011 03/18/2012 Inactive cyclobenzaprine 10 mg Tab RxNorm: 309622 1 Tablet(s) PO TID 011 01/08/2011 Inactive cyclobenzaprine 10 mg Tab RxNorm: 297071 1 Tablet(s) PO TID 011 12/20/2010 Inactive terbinafine 250 mg Tab RxNorm: 984308 1 Tablet(s) PO QD 12/12/2010 Inactive triamterene-hydrochlorothiazide 75 mg-50 mg Tab RxNorm: 3108 18 1 Tablet(s) PO QD 12/07/2010 06/04/2011 Inactive Klor-Con 8 8 mEq Tab RxNorm: 131588 1 Tablet(s) PO QD 12/07/201001/08 Inactive Premarin 1.25 mg Tab RxNorm: 753226 2 Tablet(s) PO QD 12/07/201001/08 Inactive clonidine 0.2 mg Tab RxNorm: 506420 1 Tablet(s) PO TID 12/07/2010 Inactive hydrocodone-acetaminophen 7.5 mg-650 mg Tab RxNorm: 311745 1 Ta blet(s) PO Q4H 12/05/2010 01/21/2019 Inactive hydrocodone-acetaminophen 7.5 mg-650 mg Tab RxNorm: 127358 1 Ta blet(s) PO Q4H 10/26/2010 11/14/2010 Inactive hydrocodone-acetaminophen 7.5 mg-650 mg Tab RxNorm: 264739 1 Ta blet(s) PO Q4H 10/13/2010 10/25/2010 Inactive hydrocodone-acetaminophen 7.5 mg-650 mg Tab RxNorm: 544013 1 Ta blet(s) PO Q4H 09/15/2010 09/12/2010 Inactive alprazolam 0.5 mg Tab RxNorm: 944908 1 Tablet(s) PO BID prn 011 09/12/2010 Inactive terbinafine 250 mg Tab RxNorm: 659962 1 Tablet(s) PO QD 09/05/2010 Inactive hydrocodone-acetaminophen 7.5 mg-650 mg Tab RxNorm: 907883 1 Ta blet(s) PO Q4H 08/29/2010 09/17/2010 Inactive alprazolam 0.5 mg Tab RxNorm: 798071 1 Tablet(s) PO BID prn 010 09/27/2010 Inactive alprazolam 0.5 mg Tab RxNorm: 089805 1 Tablet(s) PO BID prn 010 09/06/2010 Inactive Klor-Con 8 mEq Tab RxNorm: 612874 1 Tablet(s) PO QD 08/08/20102010 Inactive hydrocodone-acetaminophen 7.5 mg-650 mg Tab RxNorm: 268229 1 Ta blet(s) PO Q4H 08/08/2010 08/27/2010 Inactive Ambien 10 mg Tab RxNorm: 330674 1 Tablet(s) PO QHS 08/08/2010 Inactive clonidine 0.2 mg Tab RxNorm: 648312 1 Tablet(s) PO TID 08/08/2010 Inactive Premarin 1.25 mg Tab RxNorm: 483929 2 Tablet(s) PO QD 08/08/201009/12 Inactive Ambien 10 mg Tab RxNorm: 779324 1 Tablet(s) PO QHS 07/18/2010 Inactive alprazolam 0.5 mg Tab RxNorm: 615819 1 Tablet(s) PO BID prn 010 08/07/2010 Inactive hydrocodone-acetaminophen 7.5 mg-650 mg Tab RxNorm: 884871 1 Ta blet(s) PO Q4H 07/12/2010 07/31/2010 Inactive clonidine 0.2 mg Tab RxNorm: 395738 1 Tablet(s) PO TID 06/20/2010 Inactive terbinafine 250 mg Tab RxNorm: 089741 1 Tablet(s) PO QD 05/24/2010 Inactive Clonidine 0.2 mg Tab RxNorm: 894162 1 Tablet(s) PO TID 05/24/201006/2010 Inactive Ambien 10 mg Tab RxNorm: 363653 1 Tablet(s) PO QHS 05/24/2010 010 Inactive alprazolam 0.5 mg Tab RxNorm: 974519 1 Tablet(s) PO BID 05/24/2010 Inactive Klor-Con 8 mEq Tab RxNorm: 966603 1 Tablet(s) PO QD 05/24/20102009 Inactive alprazolam 0.5 mg Tab RxNorm: 212302 2 Tablet(s) PO QD prn 05/24/20 10 07/17/2010 Inactive triamterene-hydrochlorothiazide 75 mg-50 mg Tab RxNorm: 3108 18 1 Tablet(s) PO QD 05/24/2010 11/19/2010 Inactive Ambien 10 mg Tab RxNorm: 885466 1 Tablet(s) PO QHS 05/23/2010 010 Inactive Alprazolam 0.5 mg Tab RxNorm: 695331 2 Tablet(s) PO QD prn 05/23/20 10 05/23/2010 Inactive Premarin 1.25 mg Tab RxNorm: 031058 2 Tablet(s) PO QD 05/19/201007/12 Inactive Hydrocodone-Acetaminophen 7.5 mg-650 mg Tab RxNorm: 122464 1 Ta blet(s) PO Q4H 05/19/2010 03/20/2011 Inactive Prednisone 20 mg Tab RxNorm: 390710 1 Tablet(s) PO BID 05/17/2010 Inactive Prednisone 20 mg Tab RxNorm: 265406 1 Tablet(s) PO BID 05/06/201001/2010 Inactive Premarin 1.25 mg Tab RxNorm: 309933 Tablet(s) PO 2 M-W-F, and 1 Ms-Su-Dds-Sun 05/05/2010 08/02/2010 Inactive Premarin 1.25 mg Tab RxNorm: 852134 Tablet(s) PO 2 M-W-F, and Fj-Le-Uhd-Sun 05/04/2010 05/04/2010 Inactive Premarin 1.25 mg Tab RxNorm: 613584 Tablet(s) PO 2 M-W-F, and 1 Id-Ub-Imr-Sun 05/04/2010 05/03/2010 Inactive Prednisone 20 mg Tab RxNorm: 418090 1 Tablet(s) PO BID 04/27/2010 Inactive Alprazolam 0.5 mg Tab RxNorm: 190869 2 Tablet(s) PO QD prn 04/26/20 10 05/22/2010 Inactive Clindamycin 300 mg Cap RxNorm: 145163 2 Capsule(s) PO TID 04/05/2010 04/18/2010 Inactive Terbinafine 250 mg Tab RxNorm: 872220 1 Tablet(s) PO QD 04/04/2010 Inactive Hydrocodone-Acetaminophen 7.5 mg-650 mg Tab RxNorm: 722152 1 Ta blet(s) PO Q4H 03/30/2010 04/18/2010 Inactive Avelox 400 mg Tab RxNorm: 807045 1 Tablet(s) PO QD 03/09/2010 010 Inactive Hydrocodone-Acetaminophen 7.5 mg-650 mg Tab RxNorm: 845877 1 Ta blet(s) PO Q4H 03/08/2010 03/27/2010 Inactive Alprazolam 0.5 mg Tab RxNorm: 361039 2 Tablet(s) PO QD prn 03/08/20 10 04/25/2010 Inactive Klor-Con 8 mEq Tab RxNorm: 520678 1 Tablet(s) PO QD when takes lasi x 03/07/2010 09/29/2019 Inactive Premarin 1.25 mg Tab RxNorm: 211777 1 Tablet(s) PO QD 03/03/201003/11 Inactive Alprazolam 0.5 mg Tab RxNorm: 920614 1 Tablet(s) PO BID PRN 010 No Stop Date Active triamterene-hydrochlorothiazide 75 mg-50 mg Tab RxNorm: 3108 18 1 Tablet(s) PO QD 02/09/2010 02/03/2011 Inactive Hydrocodone-Acetaminophen 10 mg-750 mg Tab RxNorm: 882131 1 Tablet(s) PO Q4H PRN 02/09/2010 03/20/2011 Inactive Clonidine 0.2 mg Tab RxNorm: 800978 1 Tablet(s) PO TID 01/13/201009/2009 Inactive Alprazolam 0.5 mg Tab RxNorm: 820376 1 Tablet(s) PO BID PRN 010 01/12/2010 Inactive Hydrocodone-Acetaminophen 10 mg-750 mg Tab RxNorm: 139391 1 Tablet(s) PO Q4H PRN 01/13/2010 01/12/2010 Inactive ANGELIQ 1 mg-0.5 mg Tab RxNorm: 1796910 1 Tablet(s) PO QD 12/27/2009 01/23/2010 Inactive Lasix 40 mg Tab RxNorm: 481889 1 Tablet(s) PO QAM 12/14/2009 06/11/20 10 Inactive Vitamin B12 1000mcg Tablet RxNorm: 1 Tablet(s) PO QD No Start Date Active cyclobenzaprine 10 mg tablet RxNorm: 798048 1 Tablet(s) PO TID as needed DO NOT USE WITH BACLOFEN No Start Date Active Vitamin D 5,000 unit Tab RxNorm: 1 Tablet(s) PO QD No Start Date Active vitamin E (dl, acetate) 400 unit Cap RxNorm: 187733 1 Capsule(s ) PO QD No Start Date Active Benadryl 25 mg Cap RxNorm: 2776327 Capsule(s) PO PRN No Start Date Inactive amitriptyline 100 mg tablet RxNorm: 824530 1 Tablet(s) PO QHS No St art Date 11/27/2016 Inactive Zithromax Z-Dustin 250 mg tablet RxNorm: 875118 Tablet(s) PO as di rected No Start Date 07/22/2013 Inactive Klor-Con 8 mEq tablet,extended release RxNorm: 098764 1 Tablet( s) PO BID No Start Date 07/28/2012 Inactive scopolamine 1.5 mg 72 hr Transderm Patch RxNorm: 389400 Application TD Q72H for motion sickness No Start Date 05/25/2013 Inactive Klonopin 1 mg tablet RxNorm: 361738 1-2 Tablet(s) PO QHS as nee ded for sleep No Start Date 06/20/2015 Inactive Klor-Con M20 mEq tablet,extended release RxNorm: 264903 2 Tablet(s) PO BID to use with lasix No Start Date 11/11/2013 Inactive Bystolic 5 mg tablet RxNorm: 599255 1 Tablet(s) PO QD No Start Date 1 Inactive Bystolic 10 mg tablet RxNorm: 606436 1 Tablet(s) PO BID No Start Da te 07/06/2015 Inactive Premarin 1.25 mg Tab RxNorm: 580975 Tablet(s) PO 2 M-W-F, and 1 Ng-Xa-Zbv-Sun No Start Date 05/03/2010 Inactive baclofen 20 mg tablet RxNorm: 984470 1 Tablet(s) PO TID as needed for muscle spasm No Start Date 07/22/2015 Inactive hydrocodone-acetaminophen 7.5 mg-650 mg Tab RxNorm: 898290 1 Tablet(s) PO Q4H as needed for pain No Start Date 03/20/2011 Inactive albuterol sulfate 1.25 mg/3 mL Neb Solution RxNorm: 672758 1 Unit Dose INH Q4H 2boxes No Start Date 09/06/2015 Inactive Butrans 20 mcg/hour Transderm Patch RxNorm: 443386 1 TD WEEKLY apply to skin weekly after removing previous. No Start Date 07/22/2013 Inactive Medrol (Dustin) 4 mg tablets in a dose pack RxNorm: 746942 Tablet(s) PO As Directed No Start Date 07/30/2016 Inactive hydrocodone-acetaminophen 10 mg-325 mg Tab RxNorm: 7036783 1-2 Tablet(s) PO TID as needed for pain No Start Date 03/19/2011 Inactive Klonopin 1 mg tablet RxNorm: 034771 1 Tablet(s) PO QHS No Start Date 02/28/2016 Inactive honey topical RxNorm: topical No Start Date 06/16/2018 Inactive Clonidine 0.2 mg Tab RxNorm: 449054 1 Tablet(s) PO TID No Start Date 01/12/2010 Inactive ketorolac 10 mg tablet RxNorm: 159331 1 Tablet(s) PO Q8H No Start D ate 03/18/2012 Inactive as needed for headache Singulair 10 mg Tab RxNorm: 520023 1 Tablet(s) PO QD No Start Date Inactive Premarin 1.25 mg Tab RxNorm: 579860 1 Tablet(s) PO QD No Start Date 1 Inactive Flonase 50 mcg/Actuation Nasal Julian RxNorm: 9813152 1 Julian CECELIA AL BID No Start Date 03/18/2012 Inactive Terbinafine 250 mg Tab RxNorm: 345133 1 Tablet(s) PO QD No Start Da te 04/03/2010 Inactive Fexofenadine 180 mg Tab RxNorm: 5472485 1 Tablet(s) PO QD No Start Date 09/06/2015 Inactive baclofen 20 mg tablet RxNorm: 984971 1 Tablet(s) PO TID as needed N o Start Date 05/25/2014 Inactive Diovan 160 mg Tab RxNorm: 379009 1 Tablet(s) PO QD No Start Date 09/12 Inactive mupirocin 2 % topical ointment RxNorm: 491846 1 Application TOP QID No Start Date 04/25/2016 Inactive ZOFRAN ODT 4 mg Tab, Rapid Dissolve RxNorm: 536406 1 Tablet(s) PO Q4H No Start Date 03/18/2012 Inactive as needed for nausea and vomiting Alprazolam 0.5 mg Tab RxNorm: 481444 1 Tablet(s) PO BID PRN No Star t Date 01/12/2010 Inactive cyclobenzaprine 10 mg tablet RxNorm: 381909 1 Tablet(s) PO TID as needed for muscle spasm No Start Date 10/08/2017 Inactive Albuterol 0.083% Aerosol Solution RxNorm: 1 Appl ication INH Q4H Use one ampule every 4 hrs with nebulizer as needed for shortness of breath. No Start Date 10/09/2010 Inactive lorazepam 1 mg tablet RxNorm: 323460 1 1/2 Tablet(s) PO QHS No Star t Date 02/02/2016 Inactive Melatonin 3 mg Tab RxNorm: 118236 Tablet(s) PO PRN No Start Date 07/11 Inactive Medrol (Dustin) 4 mg Tabs in a Dose Pack RxNorm: 198811 Tablet(s) PO N o Start Date 11/28/2010 Inactive lorazepam 1 mg tablet RxNorm: 076540 1 Tablet(s) PO QHS as need ed for sleep No Start Date 01/30/2016 Inactive hydrocodone-acetaminophen 10 mg-325 mg Tab RxNorm: 3187141 1-2 Tablet(s) PO QID as needed for severe pain No Start Date 03/24/2012 Inactive celecoxib 200 mg capsule RxNorm: 322079 1 Capsule(s) PO BID No Star t Date 06/26/2019 Inactive amlodipine 5 mg-benazepril 20 mg capsule RxNorm: 700919 1 Capsu le(s) PO QD No Start Date 04/10/2017 Inactive Bystolic 20 mg tablet RxNorm: 433926 1/2 Tablet(s) PO QAM No Start Date 01/23/2016 Inactive Bystolic 20 mg tablet RxNorm: 519461 1 Tablet(s) PO QAM No Start Da te 04/25/2016 Inactive Ambien 10 mg Tab RxNorm: 591456 1 Tablet(s) PO QHS No Start Date 05/11 Inactive Klor-Con 8 mEq Tab RxNorm: 807628 1 Tablet(s) PO QD when takes lasix No Start Date 03/06/2010 Inactive aspirin 81 mg tablet RxNorm: 012463 1 Tablet(s) PO QD No Start Date 0 01/29/2018 Inactive hydrocodone-acetaminophen 10 mg-325 mg Tab RxNorm: 5611784 1-2 T ablet(s) PO QID No Start Date 01/10/2012 Inactive Bystolic 10 mg tablet RxNorm: 988687 1 Tablet(s) PO QAM take one daily in the morning. No Start Date 05/28/2013 Inactive nystatin 100,000 unit/mL Oral Susp RxNorm: 572223 5 Milliliter( s) PO QID No Start Date 03/18/2012 Inactive swish and spit scopolamine 1.5 mg 72 hr Transderm Patch RxNorm: 731057 1 Unit Dose TD Q72H for motion sickness No Start Date 12/23/2013 Inactive Hydrocodone-Acetaminophen 10 mg-750 mg Tab RxNorm: 043331 1 Tablet(s) PO Q4H PRN No Start Date 01/12/2010 Inactive Soma 350 mg tablet RxNorm: 839724 1 Tablet(s) PO TID as needed for spasm No Start Date 01/12/2013 Inactive baclofen 10 mg tablet RxNorm: 881624 1 Tablet(s) PO TID as needed for muscle spasm No Start Date 09/18/2019 Inactive Soma 350 mg Tab RxNorm: 761927 1 Tablet(s) PO TID for spasm No Star t Date 01/31/2012 Inactive Co Q-10 400 mg capsule RxNorm: 584485 1 Capsule(s) PO QD No Start D ate 01/21/2019 Inactive nystatin 100,000 unit/gram topical cream RxNorm: 148534 Applica tion TOP BID No Start Date 03/22/2015 Inactive Exforge 5 mg-160 mg Tab RxNorm: 010032 1 Tablet(s) PO QD No Start D ate 10/09/2010 Inactive Hydrocodone-Acetaminophen 7.5 mg-650 mg Tab RxNorm: 505932 1 Ta blet(s) PO Q4H No Start Date 03/07/2010 Inactive Robaxin-750 750 mg Tab RxNorm: 954276 1-2 Tablet(s) PO TID prn spasm No Start Date 05/21/2011 Inactive amlodipine 5 mg tablet RxNorm: 643527 1 Tablet(s) PO QHS No Start D ate 09/29/2015 Inactive oxycodone-acetaminophen 10 mg-325 mg tablet RxNorm: 0224239 1-2 Tablet(s) PO Q6H No Start Date 06/16/2018 Inactive Triamterene-Hydrochlorothiazide 75 mg-50 mg Tab RxNorm: 3108 18 1 Tablet(s) PO QD No Start Date 02/08/2010 Inactive Alprazolam 0.5 mg Tab RxNorm: 242059 2 Tablet(s) PO QD prn No Start Date 03/07/2010 Inactive Bystolic 20 mg tablet RxNorm: 763983 1 Tablet(s) PO QAM No Start Da te 08/17/2015 Inactive ketorolac 10 mg tablet RxNorm: 968111 1 Tablet(s) PO QID prn he adache No Start Date 07/17/2012 Inactive acyclovir 800 mg Tab RxNorm: 121911 1 Tablet(s) PO BID No Start Date 03/18/2012 Inactive duloxetine 60 mg capsule,delayed release RxNorm: 090248 1 Capsu le(s) PO QD No Start Date 09/29/2015 Inactive Norvasc 5 mg tablet RxNorm: 074957 1 Tablet(s) PO QHS No Start Date 1 10/18/2014 Inactive promethazine 25 mg tablet RxNorm: 952742 1 Tablet(s) PO Q8H use sparingly No Start Date 07/22/2013 Inactive alprazolam 0.5 mg tablet RxNorm: 547257 3 Tablet(s) PO QHS No Start Date 06/06/2015 Inactive Lunesta 3 mg tablet RxNorm: 071177 1 Tablet(s) PO QHS No Start Date 0 09/20/2017 Inactive hydrocodone-acetaminophen 10 mg-325 mg Tab RxNorm: 9180912 1-2 Tablet(s) PO TID as needed for pain No Start Date 12/10/2011 Inactive Coricidin HBP Cough & Cold 4 mg-30 mg Tab RxNorm: 5069090 Tablet (s) PO PRN No Start Date 10/09/2010 Inactive Bactroban 2 % Ointment RxNorm: 729003 Application TOP QID to so res No Start Date 02/22/2012 Inactive Flonase 50 mcg/actuation Nasal Julian RxNorm: 778379 2 Julian CECEL[place] AL QHS No Start Date 03/03/2014 Inactive Medication Administered No Medication Administered data Immunizations Vaccine Codes Date Status Tetanus, Diptheria, Pertussis CVX: 115 02/27/2014 Results Observation Observation Code Item Item Code Result Date S vic Location COMPREHENSIVE METABOLIC 05901 AST 15 U/L 2019 Unknown COMPREHENSIVE METABOLIC 09417 ALT 13 U/L 2019 Unknown COMPREHENSIVE METABOLIC 43887 BUN 12 mg/dL 2019 Unknown COMPREHENSIVE METABOLIC 56046 ALBUMIN 3.9 g/dL 2019 Unknown COMPREHENSIVE METABOLIC 95633 CHLORIDE 97 mmol/L 2019 Unknown COMPREHENSIVE METABOLIC 08712 Bili Total 0.4 mg/dL 09/29 Unknown COMPREHENSIVE METABOLIC 55730 ALK PHOS 130 U/L 2019 Unknown COMPREHENSIVE METABOLIC 58188 SODIUM 136 mmol/L 09/29 Unknown COMPREHENSIVE METABOLIC 77616 CREATININE 0.92 mg/dL 09/11 Unknown COMPREHENSIVE METABOLIC 54801 CALCIUM 9.1 mg/dL 2019 Unknown COMPREHENSIVE METABOLIC 64702 POTASSIUM 4.4 mmol/L 09/29 Unknown COMPREHENSIVE METABOLIC 91186 Total Protein 6.2 g/dL Unknown COMPREHENSIVE METABOLIC 76468 Glucose 391 mg/dL 2019 Unknown COMPREHENSIVE METABOLIC 71935 Bicarbonate 30 mmol/L 09/11 Unknown COMPREHENSIVE METABOLIC 28253 AGAP 9 mmol/L 2019 Unknown MEAN GLUC 2545999 Calc Mean Gluc 332 mg/dL 09/29/2019 Unkn own COMPLETE BLOOD COUNT [id number] WBC 7.0 10e9/L 09/29/19 Unknown COMPLETE BLOOD COUNT [id number] RBC 4.69 10e12/L 2019 Unknown COMPLETE BLOOD COUNT [id number] HEMOGLOBIN 14.6 g/dL 09/29/19 Unknown COMPLETE BLOOD COUNT 2967362 HEMATOCRIT 45.2 % 09/29/19 Unknown COMPLETE BLOOD COUNT 8056859 MCV 96.4 fL 0 Unknown COMPLETE BLOOD COUNT [id number] MCH 31.1 pg 0 Unknown COMPLETE BLOOD COUNT 6050123 MCHC 32.3 g/dL 0 Unknown COMPLETE BLOOD COUNT 0267622 PLATELET COUNT 209 10e9/L Unknown COMPLETE BLOOD COUNT 4577218 Mean Plt Volume 9.8 fL Unknown COMPLETE BLOOD COUNT 6475588 Neut Auto 48.1 % 0 Unknown COMPLETE BLOOD COUNT [id number] Lymph Auto 36.5 % 09/29/19 Unknown COMPLETE BLOOD COUNT [id number] [place] Auto 8.6 % 0 Unknown COMPLETE BLOOD COUNT 1986519 RDW 13.4 % 0 Unknown COMPLETE BLOOD COUNT 8357041 Eos Auto 6.5 % 0 Unknown COMPLETE BLOOD COUNT 9975620 Baso Auto 0.3 % 0 Unknown COMPLETE BLOOD COUNT 9923136 Neutrophil Abs 3.37 10e9/L Unknown COMPLETE BLOOD COUNT 1545199 Lymphocyte Abs 2.56 10e9/L Unknown COMPLETE BLOOD COUNT [id number] Monocyte Abs 0.60 10e9/L 09/11 Unknown COMPLETE BLOOD COUNT [id number] Eosinophil Abs 0.46 10e9/L Unknown COMPLETE BLOOD COUNT 9374190 RDW-SD 45.9 fL 0 Unknown COMPLETE BLOOD COUNT [id number] Basophil Abs 0.02 10e9/L 09/11 Unknown LIPID GROUP 05483 Cholesterol 248 mg/dL 09/29/2019 Unkno wn LIPID GROUP 88825 Triglyceride 898 mg/dL 09/29/2019 Unkn own LIPID GROUP 25226 HDL CHOLESTEROL 41 mg/dL 09/29/2019 U nknown LIPID GROUP 88178 Chol/HDL Ratio 6.05 ratio 09/29/2019 U nknown LIPID GROUP 50671 NON-HDL Chol 207 mg/dL 09/29/2019 Unkn own LIPID GROUP 34967 LDL Cholesterol N/A Trig >400 020 Unknown GLYCOSYLATED HEMOGLOBIN TEST 42831 Hgb A1c 02462-6 13.2 % 0 09/29/2019 Unknown FREE T4 07783 T4 Free 0.75 ng/dL 09/29/2019 Unknown GFR CALC 4407999 GFR Non Afr Amr >60 mL/min 09/29/2019 Un known GFR CALC 5055911 GFR Afr Amr >60 mL/min 09/29/2019 Unknow n THYROID STIMULATING HORMONE 33001 TSH 4.245 uIU/mL 09/29/2019 Unknown COMPLETE BLOOD COUNT [id number] WBC 10.7 10e9/L 018 Unknown COMPLETE BLOOD COUNT [id number] RBC 4.59 10e12/L 2017 Unknown COMPLETE BLOOD COUNT 8309801 HEMOGLOBIN 14.8 g/dL 12/11/19 18 Unknown COMPLETE BLOOD COUNT 4309888 HEMATOCRIT 44.9 % 12/11/19 18 Unknown COMPLETE BLOOD COUNT 5484615 MCV 97.8 fL 8 Unknown COMPLETE BLOOD COUNT 2108929 MCH 32.2 pg 8 Unknown COMPLETE BLOOD COUNT 4322810 MCHC 33.0 g/dL 8 Unknown COMPLETE BLOOD COUNT 2330658 PLATELET COUNT 261 10e9/L 10/2017 Unknown COMPLETE BLOOD COUNT 2319190 Mean Plt Volume 9.5 fL 10/2017 Unknown COMPLETE BLOOD COUNT 8267466 Neut Auto 59.9 % 8 Unknown COMPLETE BLOOD COUNT 3790851 Lymph Auto 27.4 % 12/11/19 18 Unknown COMPLETE BLOOD COUNT 8520798 [place] Auto 8.2 % 8 Unknown COMPLETE BLOOD COUNT 1208559 Eos Auto 4.1 % 8 Unknown COMPLETE BLOOD COUNT 8422510 RDW 13.3 % 8 Unknown COMPLETE BLOOD COUNT 5845042 Baso Auto 0.4 % 8 Unknown COMPLETE BLOOD COUNT 6321245 Neutrophil Abs 6.41 10e9/L Unknown COMPLETE BLOOD COUNT 4407926 Lymphocyte Abs 2.93 10e9/L Unknown COMPLETE BLOOD COUNT [id number] Monocyte Abs 0.88 10e9/L 10/2017 Unknown COMPLETE BLOOD COUNT 7271179 Eosinophil Abs 0.44 10e9/L Unknown COMPLETE BLOOD COUNT [id number] Basophil Abs 0.04 10e9/L 10/2017 Unknown COMPLETE BLOOD COUNT 7908536 RDW-SD 46.2 fL 8 Unknown THYROID STIMULATING HORMONE 54684 TSH 4.015 uIU/mL 12/10/2017 Unknown COMPREHENSIVE METABOLIC 61463 AST 25 U/L 2017 Unknown COMPREHENSIVE METABOLIC 52527 ALT 17 U/L 2017 Unknown COMPREHENSIVE METABOLIC 00920 BUN 19 mg/dL 2017 Unknown COMPREHENSIVE METABOLIC 77233 ALBUMIN 4.0 g/dL 2017 Unknown COMPREHENSIVE METABOLIC 64485 CHLORIDE 91 mmol/L 2017 Unknown COMPREHENSIVE METABOLIC 98111 Bili Total 0.5 mg/dL 12/10 Unknown COMPREHENSIVE METABOLIC 50216 ALK PHOS 75 U/L 2017 Unknown COMPREHENSIVE METABOLIC 80841 SODIUM 136 mmol/L 12/10 Unknown COMPREHENSIVE METABOLIC 18222 CREATININE 1.05 mg/dL 10/2017 Unknown COMPREHENSIVE METABOLIC 12203 CALCIUM 8.9 mg/dL 2017 Unknown COMPREHENSIVE METABOLIC 93644 POTASSIUM 3.4 mmol/L 12/10 Unknown COMPREHENSIVE METABOLIC 09203 Total Protein 6.5 g/dL Unknown COMPREHENSIVE METABOLIC 59096 Glucose 138 mg/dL 2017 Unknown COMPREHENSIVE METABOLIC 54045 Bicarbonate 35 mmol/L 10/2017 Unknown COMPREHENSIVE METABOLIC 88233 AGAP 10 mmol/L 2017 Unknown MEAN GLUC 0395170 Calc Mean Gluc 171 mg/dL 12/10/2017 Unkn own LIPID GROUP 07027 Cholesterol 204 mg/dL 12/10/2017 Unkno wn LIPID GROUP 12632 Triglyceride 411 mg/dL 12/10/2017 Unkn own LIPID GROUP 40630 HDL CHOLESTEROL 50 mg/dL 12/10/2017 U nknown LIPID GROUP 45978 Chol/HDL Ratio 4.08 ratio 12/10/2017 U nknown LIPID GROUP 97081 NON-HDL Chol 154 mg/dL 12/10/2017 Unkn own LIPID GROUP 60942 LDL Cholesterol N/A Trig >400 018 Unknown GLYCOSYLATED HEMOGLOBIN TEST 90935 Hgb A1c 67683-5 7.6 % 0 12/10/2017 Unknown FREE T4 71997 T4 Free 1.40 ng/dL 12/10/2017 Unknown GFR CALC 0836422 GFR Non Afr Amr 55 mL/min 12/10/2017 Unk nown GFR CALC 5551694 GFR Afr Amr >60 mL/min 12/10/2017 Unknow n GFR CALC 9069439 GFR Non Afr Amr 48 mL/min 06/28/2017 Unk nown GFR CALC 7792910 GFR Afr Amr 59 mL/min 06/28/2017 Unknown COMPREHENSIVE METABOLIC 95556 AST 32 U/L 2016 Unknown COMPREHENSIVE METABOLIC 23782 ALT 22 U/L 2016 Unknown COMPREHENSIVE METABOLIC 76631 BUN 23 mg/dL 2016 Unknown COMPREHENSIVE METABOLIC 69297 ALBUMIN 4.7 g/dL 2016 Unknown COMPREHENSIVE METABOLIC 48707 CHLORIDE 89 mmol/L 2016 Unknown COMPREHENSIVE METABOLIC 06819 Bili Total 0.5 mg/dL 06/28 Unknown COMPREHENSIVE METABOLIC 77927 ALK PHOS 90 U/L 2016 Unknown COMPREHENSIVE METABOLIC 55421 SODIUM 135 mmol/L 06/28 Unknown COMPREHENSIVE METABOLIC 48495 CREATININE 1.18 mg/dL 06/10 Unknown COMPREHENSIVE METABOLIC 58289 CALCIUM 9.7 mg/dL 2016 Unknown COMPREHENSIVE METABOLIC 29484 POTASSIUM 3.5 mmol/L 06/28 Unknown COMPREHENSIVE METABOLIC 82598 Total Protein 7.7 g/dL Unknown COMPREHENSIVE METABOLIC 72545 Glucose 129 mg/dL 2016 Unknown COMPREHENSIVE METABOLIC 39177 Bicarbonate 34 mmol/L 06/10 Unknown COMPREHENSIVE METABOLIC 36250 AGAP 12 mmol/L 2016 Unknown LIPID GROUP 52065 HDL TEST 64 MG/DL 08/27/2014 Unknown LIPID GROUP 87872 TRIG 222 MG/DL 08/27/2014 Unknown LIPID GROUP 07816 TEST LDL 209 MG/DL 08/27/2014 Unknown LIPID GROUP 42134 CHOL 317 MG/DL 08/27/2014 Unknown LIPID GROUP 07682 RCHOL/HDL 4.95 RATIO 08/27/2014 Unknow n LIPID GROUP 60067 NON-HDL CH 253 MG/DL 08/27/2014 Unknow n GFR CALC 1099783 GFR AA >60 ML/MIN 08/27/2014 Unknown GFR CALC 5029476 GFR NON-AA >60 ML/MIN 08/27/2014 Unknown COMPLETE BLOOD COUNT 7484520 WBC 7.0 10e9/L 08/27/20 14 Unknown COMPLETE BLOOD COUNT 8483592 RBC 4.98 10e12/L 2013 Unknown COMPLETE BLOOD COUNT 7684962 HGB 15.6 g/dL 4 Unknown COMPLETE BLOOD COUNT 0237513 HCT DET 46.5 % 4 Unknown COMPLETE BLOOD COUNT 6553801 MCV 93.4 fL 4 Unknown COMPLETE BLOOD COUNT 1684784 MCH 31.3 pg 4 Unknown COMPLETE BLOOD COUNT 8088821 MCHC 33.5 g/dL 4 Unknown COMPLETE BLOOD COUNT 9603685 PLT 309 10e9/L 08/27/20 14 Unknown COMPLETE BLOOD COUNT 9864330 MPV 9.6 fL 4 Unknown COMPLETE BLOOD COUNT 2997648 CADEN % 57.2 % 4 Unknown COMPLETE BLOOD COUNT 4085034 LY % 33.2 % 4 Unknown COMPLETE BLOOD COUNT 0927288 MON % 7.3 % 4 Unknown COMPLETE BLOOD COUNT 9806645 EOS % 2.0 % 4 Unknown COMPLETE BLOOD COUNT 9316978 BASO % 0.3 % 4 Unknown COMPLETE BLOOD COUNT 3300161 RDW 13.7 % 4 Unknown COMPLETE BLOOD COUNT 0726843 ABS CADEN 4.00 10e9/L 014 Unknown COMPLETE BLOOD COUNT 3947175 ABS LYMPH 2.32 10e9/L 014 Unknown COMPLETE BLOOD COUNT 5786983 ABS MONO 0.51 10e9/L 014 Unknown COMPLETE BLOOD COUNT 3157506 ABS EOS 0.14 10e9/L 014 Unknown COMPLETE BLOOD COUNT 8702989 ABS BASO 0.02 10e9/L 014 Unknown COMPLETE BLOOD COUNT [id number] RDW-SD 45.1 fL 4 Unknown COMPREHENSIVE METABOLIC 86232 AST 13 U/L 2013 Unknown COMPREHENSIVE METABOLIC 84053 ALT 11 IU/L 2013 Unknown COMPREHENSIVE METABOLIC 68257 BUN 23 MG/DL 2013 Unknown COMPREHENSIVE METABOLIC 88900 ALBUMIN 4.4 GM/DL 2013 Unknown COMPREHENSIVE METABOLIC 06708 CHLORIDE 99 MMOL/L 2013 Unknown COMPREHENSIVE METABOLIC 11375 BILI TOT 0.5 MG/DL 2013 Unknown COMPREHENSIVE METABOLIC 45013 ALK PHOS 56 U/L 2013 Unknown COMPREHENSIVE METABOLIC 26817 SODIUM 138 MMOL/L 08/27 Unknown COMPREHENSIVE METABOLIC 63885 CREATININE 0.95 MG/DL 08/10 Unknown COMPREHENSIVE METABOLIC 39505 CALCIUM 9.8 MG/DL 2013 Unknown COMPREHENSIVE METABOLIC 49228 POTASSIUM 3.5 MMOL/L 08/27 Unknown COMPREHENSIVE METABOLIC 92493 PROT TOT 6.8 GM/DL 2013 Unknown COMPREHENSIVE METABOLIC 92273 Glucose 90 MG/DL 2013 Unknown COMPREHENSIVE METABOLIC 48002 BICARB 34 MMOL/L 2013 Unknown COMPREHENSIVE METABOLIC 22333 ANION GAP 5 MEQ/L 2013 Unknown LIPASE 10482 LIPASE 11 IU/L 07/21/2014 Unknown AMYLASE 52441 AMYLASE 39 IU/L 07/21/2014 Unknown HEMOGLOBIN A1C (GLYCOSYLATED) 1300735 A1C [facility] 06227-2 6.2 % 03/05/2013 Unknown THYROID STIMULATING HORMONE 42263 TSH 6.986 uIU/ML 03/05/2013 Unknown COMPLETE BLOOD COUNT 2500431 WBC 12.7 10e9/L 013 Unknown COMPLETE BLOOD COUNT 1109711 RBC 4.53 10e12/L 2012 Unknown COMPLETE BLOOD COUNT 7095984 HGB 14.7 g/dL 3 Unknown COMPLETE BLOOD COUNT 6685242 HCT DET 43.1 % 3 Unknown COMPLETE BLOOD COUNT 0848408 MCV 95.1 fL 3 Unknown COMPLETE BLOOD COUNT 1620591 MCH 32.5 pg 3 Unknown COMPLETE BLOOD COUNT 4552362 MCHC 34.1 g/dL 3 Unknown COMPLETE BLOOD COUNT 1620502 PLT 346 10e9/L 03/05/20 13 Unknown COMPLETE BLOOD COUNT 8947444 MPV 9.5 fL 3 Unknown COMPLETE BLOOD COUNT 0720844 CADEN % 67.6 % 3 Unknown COMPLETE BLOOD COUNT 9816182 LY % 22.1 % 3 Unknown COMPLETE BLOOD COUNT 6821012 MON % 6.6 % 3 Unknown COMPLETE BLOOD COUNT 4500750 EOS % 3.3 % 3 Unknown COMPLETE BLOOD COUNT 1916180 BASO % 0.4 % 3 Unknown COMPLETE BLOOD COUNT 3605930 RDW 14.0 % 3 Unknown COMPLETE BLOOD COUNT 8466755 ABS CADEN 8.59 10e9/L 013 Unknown COMPLETE BLOOD COUNT 1887771 ABS LYMPH 2.81 10e9/L 013 Unknown COMPLETE BLOOD COUNT 6921534 ABS MONO 0.84 10e9/L 013 Unknown COMPLETE BLOOD COUNT [id number] ABS EOS 0.42 10e9/L 013 Unknown COMPLETE BLOOD COUNT 0612439 ABS BASO 0.05 10e9/L 013 Unknown COMPLETE BLOOD COUNT 4537348 RDW-SD 46.0 fL 3 Unknown FREE T4 73182 FREE T4 1.14 NG/DL 03/05/2013 Unknown COMPREHENSIVE METABOLIC 73626 AST 17 U/L 2012 Unknown COMPREHENSIVE METABOLIC 39421 ALT 12 IU/L 2012 Unknown COMPREHENSIVE METABOLIC 18794 BUN 24 MG/DL 2012 Unknown COMPREHENSIVE METABOLIC 35702 ALBUMIN 4.2 GM/DL 2012 Unknown COMPREHENSIVE METABOLIC 62899 CHLORIDE 93 MMOL/L 2012 Unknown COMPREHENSIVE METABOLIC 91847 BILI TOT 0.5 MG/DL 2012 Unknown COMPREHENSIVE METABOLIC 61478 ALK PHOS 75 U/L 2012 Unknown COMPREHENSIVE METABOLIC 78335 SODIUM 141 MMOL/L 03/05 Unknown COMPREHENSIVE METABOLIC 75085 CREATININE 1.36 MG/DL 02/09 Unknown COMPREHENSIVE METABOLIC 34236 CALCIUM 9.2 MG/DL 2012 Unknown COMPREHENSIVE METABOLIC 14174 POTASSIUM 3.1 MMOL/L 03/05 Unknown COMPREHENSIVE METABOLIC 16990 PROT TOT 6.9 GM/DL 2012 Unknown COMPREHENSIVE METABOLIC 29395 Glucose 123 MG/DL 2012 Unknown COMPREHENSIVE METABOLIC 06434 BICARB 36 MMOL/L 2012 Unknown COMPREHENSIVE METABOLIC 31563 ANION GAP 12 MEQ/L 2012 Unknown GFR CALC 0173348 GFR AA 51.0L ML/MIN 03/05/2013 Unknow n GFR CALC 2186516 GFR NON-AA 42.0L ML/MIN 03/05/2013 Unkno wn COMPREHENSIVE METABOLIC 00563 AST 14 U/L 2012 Unknown COMPREHENSIVE METABOLIC 96325 ALT 11 IU/L 2012 Unknown COMPREHENSIVE METABOLIC 99753 BUN 16 MG/DL 2012 Unknown COMPREHENSIVE METABOLIC 86836 ALBUMIN 4.2 GM/DL 2012 Unknown COMPREHENSIVE METABOLIC 63712 CHLORIDE 98 MMOL/L 2012 Unknown COMPREHENSIVE METABOLIC 22441 BILI TOT 0.4 MG/DL 2012 Unknown COMPREHENSIVE METABOLIC 92974 ALK PHOS 77 U/L 2012 Unknown COMPREHENSIVE METABOLIC 02656 SODIUM 139 MMOL/L 09/25 Unknown COMPREHENSIVE METABOLIC 55736 CREATININE 0.86 MG/DL 09/10 Unknown COMPREHENSIVE METABOLIC 21469 CALCIUM 9.5 MG/DL 2012 Unknown COMPREHENSIVE METABOLIC 70559 POTASSIUM 3.8 MMOL/L 09/25 Unknown COMPREHENSIVE METABOLIC 75878 PROT TOT 6.8 GM/DL 2012 Unknown COMPREHENSIVE METABOLIC 74411 Glucose 91 MG/DL 2012 Unknown COMPREHENSIVE METABOLIC 57234 BICARB 32 MMOL/L 2012 Unknown COMPREHENSIVE METABOLIC 02992 ANION GAP 9 MEQ/L 2012 Unknown FREE T4 45597 FREE T4 0.98 NG/DL 09/25/2012 Unknown THYROID STIMULATING HORMONE 11991 TSH 1.736 uIU/ML 09/25/2012 Unknown C-REACTIVE PROTEIN (CRP) QUANT 88325 CRP 2.3 MG/DL 09/25/2012 Unknown COMPLETE BLOOD COUNT 2343549 WBC 11.9 10e9/L 013 Unknown COMPLETE BLOOD COUNT 0154535 RBC 4.87 10e12/L 2012 Unknown COMPLETE BLOOD COUNT 2918970 HGB 15.1 g/dL 3 Unknown COMPLETE BLOOD COUNT 1585147 HCT DET 44.8 % 3 Unknown COMPLETE BLOOD COUNT 6563136 MCV 92.0 fL 3 Unknown COMPLETE BLOOD COUNT 1561344 MCH 31.0 pg 3 Unknown COMPLETE BLOOD COUNT 4315838 MCHC 33.7 g/dL 3 Unknown COMPLETE BLOOD COUNT 5849099 PLT 343 10e9/L 09/25/19 13 Unknown COMPLETE BLOOD COUNT 4540614 MPV 9.0 fL 3 Unknown COMPLETE BLOOD COUNT 5467585 CADEN % 68.2 % 3 Unknown COMPLETE BLOOD COUNT 0880327 LY % 22.4 % 3 Unknown COMPLETE BLOOD COUNT 6055559 MON % 6.4 % 3 Unknown COMPLETE BLOOD COUNT 6769836 EOS % 2.7 % 3 Unknown COMPLETE BLOOD COUNT 3206543 BASO % 0.3 % 3 Unknown COMPLETE BLOOD COUNT 1061910 RDW 13.8 % 3 Unknown COMPLETE BLOOD COUNT 8194675 ABS CADEN 8.12 10e9/L 013 Unknown COMPLETE BLOOD COUNT 1900531 ABS LYMPH 2.67 10e9/L 013 Unknown COMPLETE BLOOD COUNT [id number] ABS MONO 0.76 10e9/L 013 Unknown COMPLETE BLOOD COUNT 7693416 ABS EOS 0.32 10e9/L 013 Unknown COMPLETE BLOOD COUNT [id number] ABS BASO 0.04 10e9/L 013 Unknown COMPLETE BLOOD COUNT 9444313 RDW-SD 45.6 fL 3 Unknown GFR CALC 4488286 GFR AA >60 ML/MIN 09/25/2012 Unknown GFR CALC 6091399 GFR NON-AA >60 ML/MIN 09/25/2012 Unknown ERYTHROCYTE SEDIMENTATION RATE 14199 ESR 19 MM/HR 05/06/2012 Unknown VITAMIN B 12 FOLIC ACID 43781|22766 VIT B 12 922 PG/ML 04/11 Unknown VITAMIN B 12 FOLIC ACID 95553|19054 FOLIC ACID 13.6 NG/ML Unknown URIC ACID 57982 URIC ACID 7.8 MG/DL 05/06/2012 Unknown COMPLETE BLOOD COUNT 96266 WBC 11.9 10e9/L 012 Unknown COMPLETE BLOOD COUNT 93845 RBC 5.30 10e12/L 2011 Unknown COMPLETE BLOOD COUNT 22763 HGB 16.6 g/dL 2 Unknown COMPLETE BLOOD COUNT 71127 HCT DET 47.2 % 2 Unknown COMPLETE BLOOD COUNT 20757 MCV 89.1 fL 2 Unknown COMPLETE BLOOD COUNT 93852 MCH 31.3 pg 2 Unknown COMPLETE BLOOD COUNT 68923 MCHC 35.2 g/dL 2 Unknown COMPLETE BLOOD COUNT 22364 PLT 362 10e9/L 05/06/20 12 Unknown COMPLETE BLOOD COUNT 41257 MPV 9.4 fL 2 Unknown COMPLETE BLOOD COUNT 91010 CADEN % 68.2 % 2 Unknown COMPLETE BLOOD COUNT 75740 LY % 22.0 % 2 Unknown COMPLETE BLOOD COUNT 10261 MON % 6.9 % 2 Unknown COMPLETE BLOOD COUNT 33967 EOS % 2.6 % 2 Unknown COMPLETE BLOOD COUNT 45402 BASO % 0.3 % 2 Unknown COMPLETE BLOOD COUNT 85660 RDW 12.8 % 2 Unknown COMPLETE BLOOD COUNT 63564 ABS CADEN 8.12 10e9/L 012 Unknown COMPLETE BLOOD COUNT 52165 ABS LYMPH 2.62 10e9/L 012 Unknown COMPLETE BLOOD COUNT 54356 ABS MONO 0.82 10e9/L 012 Unknown COMPLETE BLOOD COUNT 80093 ABS EOS 0.31 10e9/L 012 Unknown COMPLETE BLOOD COUNT 90227 ABS BASO 0.04 10e9/L 012 Unknown COMPLETE BLOOD COUNT 03447 RDW-SD 41.5 fL 2 Unknown GFR CALC 3411306 GFR AA >60 ML/MIN 05/06/2012 Unknown GFR CALC 3174028 GFR NON-AA 58.0L ML/MIN 05/06/2012 Unkno wn FREE T4 13010 FREE T4 1.15 NG/DL 05/06/2012 Unknown THYROID STIMULATING HORMONE 45432 TSH 1.568 uIU/ML 05/06/2012 Unknown COMPREHENSIVE METABOLIC 65873 AST 20 U/L 2011 Unknown COMPREHENSIVE METABOLIC 32432 ALT 12 IU/L 2011 Unknown COMPREHENSIVE METABOLIC 92595 BUN 20 MG/DL 2011 Unknown COMPREHENSIVE METABOLIC 52082 ALBUMIN 4.5 GM/DL 2011 Unknown COMPREHENSIVE METABOLIC 35654 CHLORIDE 91 MMOL/L 2011 Unknown COMPREHENSIVE METABOLIC 82397 BILI TOT 0.4 MG/DL 2011 Unknown COMPREHENSIVE METABOLIC 12471 ALK PHOS 73 U/L 2011 Unknown COMPREHENSIVE METABOLIC 24482 SODIUM 139 MMOL/L 05/06 Unknown COMPREHENSIVE METABOLIC 38770 CREATININE 1.02 MG/DL 04/11 Unknown COMPREHENSIVE METABOLIC 46054 CALCIUM 9.7 MG/DL 2011 Unknown COMPREHENSIVE METABOLIC 93608 POTASSIUM 3.1 MMOL/L 05/06 Unknown COMPREHENSIVE METABOLIC 36544 PROT TOT 7.3 GM/DL 2011 Unknown COMPREHENSIVE METABOLIC 96515 Glucose 118 MG/DL 2011 Unknown COMPREHENSIVE METABOLIC 96148 BICARB 33 MMOL/L 2011 Unknown COMPREHENSIVE METABOLIC 16352 ANION GAP 15 MEQ/L 2011 Unknown Procedures Procedure Codes Date ROUTINE VENIPUNCTURE CPT-4: 08663 09/29/2019 URINALYSIS NONAUTO W/O SCOPE CPT-4: 83254 09/29/2019 COMPREHEN METABOLIC PANEL CPT-4: 96138 09/29/2019 LIPID PANEL CPT-4: 60093 09/29/2019 A1C HPLC CPT-4: 62619 09/29/2019 ASSAY OF FREE THYROXINE CPT-4: 88182 09/29/2019 ASSAY THYROID STIM HORMONE CPT-4: 49200 09/29/2019 COMPLETE CBC W/AUTO DIFF WBC CPT-4: 77335 09/29/2019 URINALYSIS NONAUTO W/O SCOPE CPT-4: 26005 09/30/2018 MICROALBUMIN QUANTITATIVE CPT-4: 77113 09/30/2018 CEFTRIAXONE SODIUM INJECTION CPT-4: J0696 06/19/2018 THER/PROPH/DIAG INJ SC/IM CPT-4: 11729 06/19/2018 CEFTRIAXONE SODIUM INJECTION CPT-4: J0696 06/17/2018 THER/PROPH/DIAG INJ SC/IM CPT-4: 87993 06/17/2018 THER/PROPH/DIAG INJ SC/IM CPT-4: 62343 05/16/2018 KETOROLAC TROMETHAMINE INJ CPT-4: J1885 05/16/2018 ONDANSETRON HCL INJECTION CPT-4: J2405 05/16/2018 THER/PROPH/DIAG INJ SC/IM CPT-4: 40882 05/16/2018 ROUTINE VENIPUNCTURE CPT-4: 64131 03/20/2018 COMPREHEN METABOLIC PANEL CPT-4: 35950 03/20/2018 DEXAMETHASONE SODIUM PHOS CPT-4: J1100 02/11/2018 THER/PROPH/DIAG INJ SC/IM CPT-4: 05423 02/11/2018 TRIAMCINOLONE ACET INJ NOS CPT-4: J3301 02/11/2018 CEFTRIAXONE SODIUM INJECTION CPT-4: J0696 02/01/2018 THER/PROPH/DIAG INJ SC/IM CPT-4: 12494 02/01/2018 CEFTRIAXONE SODIUM INJECTION CPT-4: J0696 01/30/2018 THER/PROPH/DIAG INJ SC/IM CPT-4: 65862 01/30/2018 ROUTINE VENIPUNCTURE CPT-4: 97180 12/10/2017 ASSAY OF FREE THYROXINE CPT-4: 20353 12/10/2017 ASSAY THYROID STIM HORMONE CPT-4: 46461 12/10/2017 COMPREHEN METABOLIC PANEL CPT-4: 60995 12/10/2017 COMPLETE CBC W/AUTO DIFF WBC CPT-4: 90590 12/10/2017 LIPID PANEL CPT-4: 06354 12/10/2017 A1C HPLC CPT-4: 33882 12/10/2017 CEFTRIAXONE SODIUM INJECTION CPT-4: J0696 12/10/2017 THER/PROPH/DIAG INJ SC/IM CPT-4: 34993 12/10/2017 CEFTRIAXONE SODIUM INJECTION CPT-4: J0696 12/07/2017 THER/PROPH/DIAG INJ SC/IM CPT-4: 09917 12/07/2017 DEXAMETHASONE SODIUM PHOS CPT-4: J1100 12/07/2017 THER/PROPH/DIAG INJ SC/IM CPT-4: 73112 12/07/2017 CEFTRIAXONE SODIUM INJECTION CPT-4: J0696 10/08/2017 THER/PROPH/DIAG INJ SC/IM CPT-4: 80466 10/08/2017 CEFTRIAXONE SODIUM INJECTION CPT-4: J0696 09/21/2017 THER/PROPH/DIAG INJ SC/IM CPT-4: 31391 09/21/2017 CEFTRIAXONE SODIUM INJECTION CPT-4: J0696 09/20/2017 THER/PROPH/DIAG INJ SC/IM CPT-4: 08396 09/20/2017 REMOVAL OF NAIL PLATE CPT-4: 21809 08/29/2017 THER/PROPH/DIAG INJ SC/IM CPT-4: 36994 08/29/2017 TRIAMCINOLONE ACET INJ NOS CPT-4: J3301 08/29/2017 CEFTRIAXONE SODIUM INJECTION CPT-4: J0696 08/29/2017 THER/PROPH/DIAG INJ SC/IM CPT-4: 29113 08/29/2017 DESTRUCT PREMALG LESION (Cryosurgery) CPT-4: 46824 ROUTINE VENIPUNCTURE CPT-4: 66963 06/27/2017 ASSAY OF FREE THYROXINE CPT-4: 87577 06/27/2017 ASSAY THYROID STIM HORMONE CPT-4: 89862 06/27/2017 COMPREHEN METABOLIC PANEL CPT-4: 54136 06/27/2017 COMPLETE CBC W/AUTO DIFF WBC CPT-4: 18717 06/27/2017 EXC TR-EXT B9+REECE 0.5 CM< CPT-4: 97097 01/24/2017 THER/PROPH/DIAG INJ SC/IM CPT-4: 98402 08/02/2016 DEXAMETHASONE SODIUM PHOS CPT-4: J1100 08/02/2016 DESTRUCT PREMALG LESION (Cryosurgery) CPT-4: 55918 EXC TR-EXT B9+REECE 0.5 CM< CPT-4: 54549 08/01/2016 AEROBIC WOUND CULTURE & STN CPT-4: 82725 07/06/2016 CEFTRIAXONE SODIUM INJECTION CPT-4: J0696 05/25/2016 THER/PROPH/DIAG INJ SC/IM CPT-4: 28149 05/25/2016 THER/PROPH/DIAG INJ SC/IM CPT-4: 77022 04/26/2016 DEXAMETHASONE SODIUM PHOS CPT-4: J1100 04/26/2016 CEFTRIAXONE SODIUM INJECTION CPT-4: J0696 04/26/2016 THER/PROPH/DIAG INJ SC/IM CPT-4: 41945 04/26/2016 THER/PROPH/DIAG INJ SC/IM CPT-4: 01999 02/09/2016 TRIAMCINOLONE ACET INJ NOS CPT-4: J3301 02/09/2016 URINALYSIS NONAUTO W/O SCOPE CPT-4: 71729 01/24/2016 URINE CULTURE/ COLONY COUNT CPT-4: 71451 01/24/2016 THER/PROPH/DIAG INJ SC/IM CPT-4: 57693 12/08/2015 TRIAMCINOLONE ACET INJ NOS CPT-4: J3301 12/08/2015 THER/PROPH/DIAG INJ SC/IM CPT-4: 50666 10/07/2015 TRIAMCINOLONE ACET INJ NOS CPT-4: J3301 10/07/2015 DESTRUCT PREMALG LESION (Cryosurgery) CPT-4: 80701 THER/PROPH/DIAG INJ SC/IM CPT-4: 02782 03/16/2015 METHYLPREDNISOLONE 40 MG INJ CPT-4: J1030 03/16/2015 DESTRUCT PREMALG LESION (Cryosurgery) CPT-4: 47528 THER/PROPH/DIAG INJ SC/IM CPT-4: 89681 09/11/2014 METHYLPREDNISOLONE 40 MG INJ CPT-4: J1030 09/11/2014 TRIAMCINOLONE ACET INJ NOS CPT-4: J3301 09/11/2014 CEFTRIAXONE SODIUM INJECTION CPT-4: J0696 09/11/2014 THER/PROPH/DIAG INJ SC/IM CPT-4: 23806 09/11/2014 ROUTINE VENIPUNCTURE CPT-4: 12298 08/27/2014 COMPREHEN METABOLIC PANEL CPT-4: 10723 08/27/2014 COMPLETE CBC W/AUTO DIFF WBC CPT-4: 28201 08/27/2014 LIPID PANEL CPT-4: 74654 08/27/2014 ROUTINE VENIPUNCTURE CPT-4: 92249 07/21/2014 ASSAY OF AMYLASE CPT-4: 48142 07/21/2014 ASSAY OF LIPASE CPT-4: 82575 07/21/2014 THER/PROPH/DIAG INJ SC/IM CPT-4: 82630 07/15/2014 TRIAMCINOLONE ACET INJ NOS CPT-4: J3301 07/15/2014 ROUTINE VENIPUNCTURE CPT-4: 71875 05/14/2014 ASSAY OF FREE THYROXINE CPT-4: 26835 05/14/2014 ASSAY THYROID STIM HORMONE CPT-4: 31197 05/14/2014 COMPREHEN METABOLIC PANEL CPT-4: 15772 05/14/2014 COMPLETE CBC W/AUTO DIFF WBC CPT-4: 46812 05/14/2014 LIPID PANEL CPT-4: 05240 05/14/2014 CEFTRIAXONE SODIUM INJECTION CPT-4: J0696 04/21/2014 THER/PROPH/DIAG INJ SC/IM CPT-4: 40583 04/21/2014 THER/PROPH/DIAG INJ SC/IM CPT-4: 06112 04/21/2014 TRIAMCINOLONE ACET INJ NOS CPT-4: J3301 04/21/2014 THER/PROPH/DIAG INJ SC/IM CPT-4: 11679 03/04/2014 METHYLPREDNISOLONE 40 MG INJ CPT-4: J1030 03/04/2014 TRIAMCINOLONE ACET INJ NOS CPT-4: J3301 03/04/2014 CEFTRIAXONE SODIUM INJECTION CPT-4: J0696 03/04/2014 THER/PROPH/DIAG INJ SC/IM CPT-4: 41178 03/04/2014 TDAP VACCINE 7 YRS/> IM CPT-4: 82576 02/27/2014 IMMUNIZATION ADMIN CPT-4: 02985 02/27/2014 DESTRUCT PREMALG LESION (Cryosurgery) CPT-4: 71328 DESTRUCT PREMALG LES 2-14 CPT-4: 42911 01/13/2014 THER/PROPH/DIAG INJ SC/IM CPT-4: 70118 10/21/2013 METHYLPREDNISOLONE 40 MG INJ CPT-4: J1030 10/21/2013 TRIAMCINOLONE ACET INJ NOS CPT-4: J3301 10/21/2013 CEFTRIAXONE SODIUM INJECTION CPT-4: J0696 08/27/2013 THER/PROPH/DIAG INJ SC/IM CPT-4: 05261 08/27/2013 THER/PROPH/DIAG INJ SC/IM CPT-4: 85796 08/27/2013 METHYLPREDNISOLONE 40 MG INJ CPT-4: J1030 08/27/2013 TRIAMCINOLONE ACET INJ NOS CPT-4: J3301 08/27/2013 THER/PROPH/DIAG INJ SC/IM CPT-4: 40524 06/23/2013 METHYLPREDNISOLONE 40 MG INJ CPT-4: J1030 06/23/2013 TRIAMCINOLONE ACET INJ NOS CPT-4: J3301 06/23/2013 THER/PROPH/DIAG INJ SC/IM CPT-4: 38888 05/26/2013 METHYLPREDNISOLONE 40 MG INJ CPT-4: J1030 05/26/2013 TRIAMCINOLONE ACET INJ NOS CPT-4: J3301 05/26/2013 ROUTINE VENIPUNCTURE CPT-4: 16375 03/05/2013 ASSAY OF FREE THYROXINE CPT-4: 51312 03/05/2013 ASSAY THYROID STIM HORMONE CPT-4: 59346 03/05/2013 COMPREHEN METABOLIC PANEL CPT-4: 80816 03/05/2013 COMPLETE CBC W/AUTO DIFF WBC CPT-4: 00723 03/05/2013 A1C GLYCOSYLATED HEMOGLOBIN TEST CPT-4: 25772 013 DRAIN/INJECT JOINT/BURSA CPT-4: 55594 12/04/2012 METHYLPREDNISOLONE 40 MG INJ CPT-4: J1030 12/04/2012 TRIAMCINOLONE ACET INJ NOS CPT-4: J3301 12/04/2012 CEFTRIAXONE SODIUM INJECTION CPT-4: J0696 11/21/2012 THER/PROPH/DIAG INJ SC/IM CPT-4: 52744 11/21/2012 THER/PROPH/DIAG INJ SC/IM CPT-4: 14154 10/14/2012 METHYLPREDNISOLONE 40 MG INJ CPT-4: J1030 10/14/2012 TRIAMCINOLONE ACET INJ NOS CPT-4: J3301 10/14/2012 URINALYSIS NONAUTO W/O SCOPE CPT-4: 35480 09/27/2012 ROUTINE VENIPUNCTURE CPT-4: 57827 09/25/2012 ASSAY OF FREE THYROXINE CPT-4: 32061 09/25/2012 ASSAY THYROID STIM HORMONE CPT-4: 53364 09/25/2012 COMPREHEN METABOLIC PANEL CPT-4: 37455 09/25/2012 COMPLETE CBC W/AUTO DIFF WBC CPT-4: 73345 09/25/2012 C-REACTIVE PROTEIN CPT-4: 67357 09/25/2012 THER/PROPH/DIAG INJ SC/IM CPT-4: 83115 08/29/2012 METHYLPREDNISOLONE 40 MG INJ CPT-4: J1030 08/29/2012 TRIAMCINOLONE ACET INJ NOS CPT-4: J3301 08/29/2012 DESTRUCT PREMALG LESION (Cryosurgery) CPT-4: 56920 THER/PROPH/DIAG INJ SC/IM CPT-4: 37045 05/06/2012 METHYLPREDNISOLONE 40 MG INJ CPT-4: J1030 05/06/2012 TRIAMCINOLONE ACET INJ NOS CPT-4: J3301 05/06/2012 VITAMIN B 12 FOLIC ACID CPT-4: 70988|12587 05/06/2012 RBC SED RATE AUTOMATED CPT-4: 45863 05/06/2012 ROUTINE VENIPUNCTURE CPT-4: 57828 05/06/2012 ASSAY OF FREE THYROXINE CPT-4: 18840 05/06/2012 ASSAY THYROID STIM HORMONE CPT-4: 55915 05/06/2012 COMPREHEN METABOLIC PANEL CPT-4: 94657 05/06/2012 COMPLETE CBC W/AUTO DIFF WBC CPT-4: 56965 05/06/2012 ASSAY OF BLOOD/URIC ACID CPT-4: 71931 05/06/2012 THER/PROPH/DIAG INJ SC/IM CPT-4: 29456 03/19/2012 KETOROLAC TROMETHAMINE INJ CPT-4: J1885 03/19/2012 KETOROLAC TROMETHAMINE INJ CPT-4: J1885 01/30/2012 THER/PROPH/DIAG INJ SC/IM CPT-4: 37633 01/30/2012 PROMETHAZINE HCL INJECTION CPT-4: J2550 01/30/2012 THER/PROPH/DIAG INJ SC/IM CPT-4: 04132 01/24/2012 METHYLPREDNISOLONE 40 MG INJ CPT-4: J1030 01/24/2012 TRIAMCINOLONE ACET INJ NOS CPT-4: J3301 01/24/2012 THER/PROPH/DIAG INJ SC/IM CPT-4: 69977 09/13/2011 KETOROLAC TROMETHAMINE INJ CPT-4: J1885 09/13/2011 THER/PROPH/DIAG INJ SC/IM CPT-4: 28168 09/13/2011 PROMETHAZINE HCL INJECTION CPT-4: J2550 09/13/2011 CEFTRIAXONE SODIUM INJECTION CPT-4: J0696 07/20/2011 THER/PROPH/DIAG INJ SC/IM CPT-4: 15003 07/20/2011 THER/PROPH/DIAG INJ SC/IM CPT-4: 22044 07/20/2011 METHYLPREDNISOLONE INJECTION CPT-4: J2930 07/20/2011 URINALYSIS NONAUTO W/O SCOPE CPT-4: 35933 05/09/2011 CEFTRIAXONE SODIUM INJECTION CPT-4: J0696 05/09/2011 THER/PROPH/DIAG INJ SC/IM CPT-4: 64665 05/09/2011 THER/PROPH/DIAG INJ SC/IM CPT-4: 17899 05/09/2011 PROMETHAZINE HCL INJECTION CPT-4: J2550 05/09/2011 HYDRATION IV INFUSION INIT CPT-4: 97729 05/09/2011 DESTRUCT PREMALG LESION (Cryosurgery) CPT-4: 40506 DESTRUCT PREMALG LES 2-14 CPT-4: 33977 07/19/2010 REMOVAL OF SKIN TAGS <W/15 CPT-4: 08000 05/30/2010 THER/PROPH/DIAG INJ SC/IM CPT-4: 73402 04/05/2010 CEFTRIAXONE SODIUM INJECTION CPT-4: J0696 04/05/2010 TRIAMCINOLONE ACET INJ NOS CPT-4: J3301 04/05/2010 METHYLPREDNISOLONE 40 MG INJ CPT-4: J1030 04/05/2010 THER/PROPH/DIAG INJ SC/IM CPT-4: 69830 04/05/2010 TRIAMCINOLONE ACET INJ NOS CPT-4: J3301 03/09/2010 METHYLPREDNISOLONE 40 MG INJ CPT-4: J1030 03/09/2010 THER/PROPH/DIAG INJ SC/IM CPT-4: 71034 03/09/2010 THER/PROPH/DIAG INJ SC/IM CPT-4: 33251 03/09/2010 CEFTRIAXONE SODIUM INJECTION CPT-4: J0696 03/09/2010 Vital Signs Date Vital 10/07/2019 Blood Pressure 1: 134/82 Code: 8480-6 Heart Rate 1: 105 bpm Respiratory Rate: 17 bpm SpO2: 96% Temperature: 36.8 (C) / 98.2 (F) We ight: 198 lbs 09/30/2019 Blood Pressure 1: 132/80 Code: 8480-6 BMI: 35.8 Code: 65472-0 Heart Rate 1: 88 bpm Height: 5'4" Respiratory Rate: 20 bpm SpO2: 95% Tempera ture: 36.9 (C) / 98.5 (F) Weight: 210 lbs 05/28/2019 Blood Pressure 1: 126/82 Code: 8480-6 BMI: 35.0 Code: 50355-7 Heart Rate 1: 88 bpm Height: 5'4" [...] 1: 128/90 Code: 8480-6 BMI: 37.2 Code: 36314-4 Heart Rate 1: 84 bpm Height: 5'4" Respiratory Rate: 20 bpm SpO2: 95% Tempera ture: 36.6 (C) / 97.8 (F) Weight: 217 lbs 08/27/2018 Blood Pressure 1: 128/88 Code: 8480-6 BMI: 38.3 Code: 96829-8 Heart Rate 1: 84 bpm Height: 5'4" [...] 1: 119/72 Code: 8480-6 BMI: 37.4 Code: 66433-2 Heart Rate 1: 82 bpm Height: 5'4" Respiratory Rate: 12 bpm SpO2: 94% Tempera ture: 35.2 (C) / 95.4 (F) Weight: 218 lbs 12/18/2017 Blood Pressure 1: 128/86 Code: 8480-6 BMI: 37.8 Code: 59537-1 Heart Rate 1: 84 bpm Height: 5'4" [...] 1: 128/82 Code: 8480-6 BMI: 35.5 Code: 86727-5 Heart Rate 1: 84 bpm Height: 5'4" [...] 1: 128/82 Code: 8480-6 BMI: 30.2 Code: 65119-2 Heart Rate 1: 80 bpm Height: 5'4" [...] 1: 128/86 Code: 8480-6 BMI: 32.8 Code: 37945-7 Heart Rate 1: 66 bpm Height: 5'4" Respiratory Rate: 18 bpm Temperature: 36 .3 (C) / 97.3 (F) Weight: 191 lbs 06/23/2013 Blood Pressure 1: 132/94 Code: 8480-6 BMI: 34.0 Code: 68986-4 Heart Rate 1: 84 bpm Height: 5'4" Respiratory Rate: 20 bpm Temperature: 36 .8 (C) / 98.2 (F) Weight: 198 lbs 05/26/2013 Blood Pressure 1: 114/80 Code: 8480-6 BMI: 35.0 Code: 44032-8 Heart Rate 1: 80 bpm Height: 5'4" Respiratory Rate: 20 bpm Temperature: 36 .4 (C) / 97.6 (F) Weight: 204 lbs 04/16/2013 Blood Pressure 1: 114/82 Code: 8480-6 BMI: 36.7 Code: 28526-6 Heart Rate 1: 84 bpm Height: 5'4" Respiratory Rate: 20 bpm Temperature: 36 .7 (C) / 98.0 (F) Weight: 214 lbs 03/05/2013 Blood Pressure 1: 136/90 Code: 8480-6 BMI: 37.1 Code: 14662-9 Heart Rate 1: 84 bpm Height: 5'4" [...] 1: 168/114 Code: 8480-6 BMI: 36.2 Code: 26195-4 Heart Rate 1: 104 bpm Height: 5'4" Respiratory Rate: 20 bpm Temperature: 36 .8 (C) / 98.2 (F) Weight: 211 lbs 11/22/2012 Blood Pressure 1: 128/90 Code: 8480-6 Heart Rate 1: 88 bpm Respiratory Rate: 20 bpm SpO2: 96% Temperature: 36.8 (C) / 98.2 (F) 11/21/2012 Blood Pressure 1: 146/100 Code: 8480-6 BMI: 35.7 Code: 51544-4 Heart Rate 1: 96 bpm Height: 5'4" [...] 1: 138/100 Code: 8480-6 BMI: 35.7 Code: 64209-7 Heart Rate 1: 96 bpm Height: 5'4" Respiratory Rate: 20 bpm Temperature: 36 .8 (C) / 98.2 (F) Weight: 208 lbs 05/06/2012 Blood Pressure 1: 154/102 Code: 8480-6 BMI: 34.7 Code: 36806-9 Heart Rate 1: 116 bpm Height: 5'4" Respiratory Rate: 20 bpm Temperature: 36 .8 (C) / 98.2 (F) Weight: 202 lbs 04/03/2012 Blood Pressure 1: 134/94 Code: 8480-6 BMI: 34.8 Code: 46860-8 Heart Rate 1: 108 bpm Height: 5'4" Respiratory Rate: 20 bpm Temperature: 36 .8 (C) / 98.2 (F) Weight: 203 lbs 03/19/2012 Blood Pressure 1: 148/106 Code: 8480-6 BMI: 35.0 Code: 24521-3 Heart Rate 1: 100 bpm Height: 5'4" Respiratory Rate: 20 bpm Temperature: 36 .6 (C) / 97.9 (F) Weight: 204 lbs 02/22/2012 Blood Pressure 1: 146/94 Code: 8480-6 He art Rate 1: 88 bpm 02/21/2012 Blood Pressure 1: 172/120 Code: 8480-6 B lood Pressure 2: 152/106 Code: 8480-6 Heart Rate 1: 116 bpm 02/20/2012 Blood Pressure 1: 160/100 Code: 8480-6 BMI: 32.0 Code: 12834-9 Heart Rate 1: 84 bpm Height: 5'7" Temperature: 36.5 (C) / 97.7 (F) Weight: 204 lbs 01/30/2012 Blood Pressure 1: 152/110 Code: 8480-6 BMI: 32.0 Code: 22195-5 Heart Rate 1: 116 bpm Height: 5'7" Respiratory Rate: 20 bpm Temperature: 37 .0 (C) / 98.6 (F) Weight: 204 lbs 01/24/2012 Blood Pressure 1: 146/100 Code: 8480-6 BMI: 32.0 Code: 94827-0 Heart Rate 1: 100 bpm Height: 5'7" Respiratory Rate: 20 bpm Temperature: 36 .7 (C) / 98.0 (F) Weight: 204 lbs 01/10/2012 Blood Pressure 1: 156/94 Code: 8480-6 BMI: 32.6 Code: 03507-7 Heart Rate 1: 72 bpm Height: 5'7" Respiratory Rate: 20 bpm Temperature: 36 .8 (C) / 98.2 (F) Weight: 208 lbs 12/11/2011 Blood Pressure 1: 146/100 Code: 8480-6 Heart Rat e 1: 116 bpm Height: 5'7" Respiratory Rate: 20 bpm Temperature: 36.9 (C) / 98.4 (F) We ight: 11/09/2011 Blood Pressure 1: 148/96 Code: 8480-6 BMI: 32.1 Code: 83933-9 Heart Rate 1: 116 bpm Height: 5'7" Respiratory Rate: 20 bpm Temperature: 36 .7 (C) / 98.0 (F) Weight: 205 lbs 09/13/2011 Blood Pressure 1: 126/88 Code: 8480-6 Heart Rate 1: 88 bpm Height: 5'7" Respiratory Rate: 20 bpm Temperature: 36.9 (C) / 98.4 (F) We ight: 08/31/2011 Blood Pressure 1: 118/82 Code: 8480-6 BMI: 32.0 Code: 24559-0 Heart Rate 1: 80 bpm Height: 5'7" Temperature: 36.4 (C) / 97.6 (F) Weight: 204 lbs 07/06/2011 Blood Pressure 1: 128/86 Code: 8480-6 BMI: 30.9 Code: 62410-7 Heart Rate 1: 92 bpm Height: 5'7" Respiratory Rate: 20 bpm Temperature: 36 .9 (C) / 98.4 (F) Weight: 197 lbs 06/06/2011 Blood Pressure 1: 112/74 Code: 8480-6 BMI: 31.0 Code: 38877-3 Heart Rate 1: 72 bpm Height: 5'7" [...] 1: 128/92 Code: 8480-6 BMI: 33.6 Code: 70371-9 Heart Rate 1: 104 bpm Height: 5'4" [...] Check-up Encounters Encounter Performer Location Codes Date ([id number]) OFFICE/OUTPATIENT VISIT EST Diagnosis: Ingrowing nail[ICD10: L60.0] Diagnosis: Type 2 diabetes mellitus with hyperglycemia[ICD10: E11.65] Kathleen Zuniga MARÍA ELENA [id number] CPT-4: 56234 10/07/2019 ([id number]) OFFICE/OUTPATIENT VISIT EST Diagnosis: DM w/o complication type II, uncontrolled[ICD10: E11.65] Diagnosis: Hypertriglyceridemia[ICD10: E78.1] Diagnosis: Essential hypertension[ICD10: I10] María Elena JEAN [employer] CPT-4: 29563 09/30/2019 ([id number]) NURSE/OUTPATIENT VISIT EST Diagnosis: Essential (primary) hypertension[ICD10: I10] Diagnosis: Cervicalgia[ICD10: M54.2] Diagnosis: Hyperglycemia, unspecified[ICD10: R73.9] Diagnosis: Mixed hyperlipidemia[ICD10: E78.2] María Elena JEAN [employer] CPT-4: 87475 09/29/2019 ([id number]) OFFICE/OUTPATIENT VISIT EST Diagnosis: Essential (primary) hypertension[ICD10: I10] Diagnosis: Fall from bed, sequela[ICD10: W06.XXXS] María Elena REED [id number] CPT-4: 66118 05/28/2019 ([id number]) NURSE/OUTPATIENT VISIT EST Diagnosis: Essential (primary) hypertension[ICD10: I10] María Elena APPIAH [facility] CPT-4: 40141 05/19/2019 ([id number]) OFFICE/OUTPATIENT VISIT EST Diagnosis: Essential (primary) hypertension[ICD10: I10] Diagnosis: Type 2 diabetes mellitus with hyperglycemia[ICD10: E11.65] Diagnosis: Intervertebral disc disorders with radiculopathy, 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] Diagnosis: Hormone replacement therapy[ICD10: Z79.890] María Elena APPIAH [facility] CPT-4: 39472 01/22/2019 ([id number]) OFFICE/OUTPATIENT VISIT EST Diagnosis: Essential (primary) hypertension[ICD10: I10] Diagnosis: Type 2 diabetes mellitus with hyperglycemia[ICD10: E11.65] María Elena APPIAH [facility] CPT-4: 42566 09/30/2018 ([id number]) OFFICE/OUTPATIENT VISIT EST Diagnosis: Pain in left elbow[ICD10: M25.522] Diagnosis: Acute stress reaction[ICD10: F43.0] Diagnosis: Primary insomnia[ICD10: F51.01] Diagnosis: Abnormal weight gain[ICD10: R63.5] María Elena [employer] [facility] CPT-4: 43579 08/27/2018 ([id number]) OFFICE/OUTPATIENT VISIT EST Diagnosis: Acute recurrent sinusitis, unspecified[ICD10: J01.91] Diagnosis: Follicular disorder, unspecified[ICD10: L73.9] Diagnosis: Tinea corporis[ICD10: B35.4] María Elena APPIAH [facility] CPT-4: 46172 08/09/2018 ([id number]) OFFICE/OUTPATIENT VISIT EST Diagnosis: Tinea corporis[ICD10: B35.4] Diagnosis: Anxiety disorder, unspecified[ICD10: F41.9] Diagnosis: Menopausal and female climacteric states[ICD10: N95.1] María Elena APPIAH [facility] CPT-4: 30563 07/22/2018 ([id number]) NURSE/OUTPATIENT VISIT EST Diagnosis: Cellulitis of right toe[ICD10: L03.031] María Elena APPIAH DO [facility] CPT-4: 24377 06/19/2018 ([id number]) OFFICE/OUTPATIENT VISIT EST Diagnosis: Cellulitis of right toe[ICD10: L03.031] Kathleen APPIAH DO [facility] CPT-4: 31677 06/17/2018 ([id number]) OFFICE/OUTPATIENT VISIT EST Diagnosis: Migraine without aura, intractable, without status migrainosus[ICD10: G43.019] Diagnosis: Zoster without complications[ICD10: B02.9] Kathleen APPIAH DO [facility] CPT-4: 62005 05/16/2018 ([id number]) OFFICE/OUTPATIENT VISIT EST Diagnosis: Cellulitis of right lower limb[ICD10: L03.115] Kathleen APPIAH DO [facility] CPT-4: 34056 03/20/2018 ([id number]) OFFICE/OUTPATIENT VISIT EST Diagnosis: Cellulitis of right lower limb[ICD10: L03.115] Kathleen APPIAH DO [facility] CPT-4: 67749 03/18/2018 ([id number]) OFFICE/OUTPATIENT VISIT EST Diagnosis: Cellulitis of right lower limb[ICD10: L03.115] Kathleen APPIAH DO [facility] CPT-4: 94278 03/15/2018 ([id number]) OFFICE/OUTPATIENT VISIT EST Diagnosis: Acute sinusitis, unspecified[ICD10: J01.90] Kathleen APPIAH DO [facility] CPT-4: 95341 02/11/2018 ([id number]) NURSE/OUTPATIENT VISIT EST Diagnosis: Otitis media, unspecified, right ear[ICD10: H66.91] María Elena APPIAH DO [facility] CPT-4: 47159 02/01/2018 ([id number]) OFFICE/OUTPATIENT VISIT EST Diagnosis: Acute suppurative otitis media without spontaneous rupture of ear drum, left ear[ICD10: H66.002] Diagnosis: Abnormal weight gain[ICD10: R63.5] Diagnosis: Intervertebral disc disorders with radiculopathy, 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] Kathleen APPIAH DO [facility] CPT-4: 99 214 01/30/2018 ([id number]) PREV VISIT EST AGE 40-64 Diagnosis: Encounter for general adult medical examination without abnormal findings[ICD10: Z00.00] Diagnosis: Essential (primary) hypertension[ICD10: I10] Diagnosis: Mixed hyperlipidemia[ICD10: E78.2] Diagnosis: Type 2 diabetes mellitus with hyperglycemia[ICD10: E11.65] Diagnosis: 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] María Elena APPIAH [facility] CPT-4: 11683 12/18/2017 ([id number]) OFFICE/OUTPATIENT VISIT EST Diagnosis: Cellulitis of right toe[ICD10: L03.031] Diagnosis: Mixed hyperlipidemia[ICD10: E78.2] Diagnosis: Essential (primary) hypertension[ICD10: I10] Diagnosis: Hyperglycemia, unspecified[ICD10: R73.9] Diagnosis: Nontoxic goiter, 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] María Elena APPIAH [facility] CPT-4: 41159 12/10/2017 ([id number]) OFFICE/OUTPATIENT VISIT EST Diagnosis: Cellulitis of right toe[ICD10: L03.031] Diagnosis: Acute sinusitis, unspecified[ICD10: J01.90] Kathleen APPIAH [facility] CPT-4: 33300 12/07/2017 OFFICE/OUTPATIENT VISIT EST Diagnosis: Acute maxillary sinusitis, unspecified[ICD10: J01.00] Kathleen APPIAH [facility] CPT-4: 10011 10/08/2017 ([id number]) OFFICE/OUTPATIENT VISIT EST Diagnosis: Cellulitis of left toe[ICD10: L03.032] María Elena ORTA [facility] CPT-4: 77484 09/21/2017 ([id number]) OFFICE/OUTPATIENT VISIT EST Diagnosis: Insomnia, unspecified[ICD10: G47.00] Diagnosis: Major depressive disorder, single episode, unspecified[ICD10: F32.9] Diagnosis: Anxiety disorder, unspecified[ICD10: F41.9] Diagnosis: Cellulitis of left toe[ICD10: L03.032] Diagnosis: Snoring[ICD10: R06.83] Kathleen APPIAH DO [facility] CPT-4: 03999 09/20/2017 ([id number]) OFFICE/OUTPATIENT VISIT EST Diagnosis: Cellulitis of left toe[ICD10: L03.032] María Elena Seamusdawn MARLIN APPIAH DO [facility] CPT-4: 29994 07/19/2017 OFFICE/OUTPATIENT VISIT EST Diagnosis: Chronic sinusitis, unspecified[ICD10: J32.9] Diagnosis: Generalized hyperhidrosis[ICD10: R61] Kathleen APPIAH DO [facility] CPT-4: 66012 06/27/2017 ([id number]) OFFICE/OUTPATIENT VISIT EST Diagnosis: Intervertebral disc disorders with radiculopathy, 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] Diagnosis: Primary insomnia[ICD10: F51.01] Diagnosis: Other fatigue[ICD10: R53.83] María Elena ELLISLINE Fabiola APP[facility] CPT-4: 72478 04/10/2017 ([id number]) OFFICE/OUTPATIENT VISIT EST Diagnosis: Primary insomnia[ICD10: F51.01] Diagnosis: Localized edema[ICD10: R60.0] Diagnosis: 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] María Elena Seamusdawn JUARES AlanJj TD [facility] CPT-4: 19350 12/13/2016 ([id number]) OFFICE/OUTPATIENT VISIT EST Diagnosis: Primary insomnia[ICD10: F51.01] Diagnosis: Cyanosis[ICD10: R23.0] María Elena Seamusdawn JUARES AlanJj CIRO Bazzi [facility] CPT-4: 47122 11/01/2016 ([id number]) PREV VISIT EST AGE 40-64 Diagnosis: Encounter for gynecological examination (general) (routine) without abnormal findings[ICD10: Z01.419] Diagnosis: Encounter for routine child health examination without abnormal findings[ICD10: Z00.129] María Elena JUARES AlanJj TD [facility] CPT-4: 14714 10/17/2016 ([id number]) OFFICE/OUTPATIENT VISIT EST Diagnosis: Other seasonal allergic rhinitis[ICD10: J30.2] María Elena APPIAH DO [facility] CPT-4: 22017 10/10/2016 ([id number]) OFFICE/OUTPATIENT VISIT EST Diagnosis: Pain in left arm[ICD10: M79.602] Diagnosis: Contact with and (suspected) exposure to potentially hazardous body fluids[ICD10: Z77.21] Diagnosis: 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, 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] Diagnosis: Unspecified open wound, right foot, sequela[ICD10: S91.301S] María Elena APPIAH DO [facility] CPT-4: 28220 09/19/2016 ([id number]) OFFICE/OUTPATIENT VISIT EST Diagnosis: Chronic sinusitis, unspecified[ICD10: J32.9] Diagnosis: Allergic rhinitis due to pollen[ICD10: J30.1] María Elena APPIAH [facility] CPT-4: 55664 08/24/2016 ([id number]) OFFICE/OUTPATIENT VISIT EST Diagnosis: Acute bronchitis, unspecified[ICD10: J20.9] María Elena APPIAH DO [facility] CPT-4: 51308 08/16/2016 ([id number]) OFFICE/OUTPATIENT VISIT EST Diagnosis: Otitis media, unspecified, right ear[ICD10: H66.91] Diagnosis: Acute bronchitis, unspecified[ICD10: J20.9] María Elena APPIAH DO [facility] CPT-4: 56216 08/10/2016 ([id number]) OFFICE/OUTPATIENT VISIT EST Diagnosis: Acute recurrent sinusitis, unspecified[ICD10: J01.91] Diagnosis: Allergic rhinitis due to pollen[ICD10: J30.1] María Elena APPIAH [facility] CPT-4: 02389 08/02/2016 ([id number]) OFFICE/OUTPATIENT VISIT EST Diagnosis: Pain in unspecified joint[ICD10: M25.50] María Elena APPIAH DO [facility] CPT-4: 00850 07/27/2016 OFFICE/OUTPATIENT VISIT EST Diagnosis: 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 CPT-4: 49540 07/20/2016 ([id number]) OFFICE/OUTPATIENT VISIT EST Diagnosis: Blister (nonthermal), left great toe, initial encounter[ICD10: S90.422A] Loan ELLISLINE Fabiola APPIAH [facility] CPT-4: 12940 ([id number]) OFFICE/OUTPATIENT VISIT EST Diagnosis: Acute recurrent sinusitis, unspecified[ICD10: J01.91] María Elena APPIAH [facility] CPT-4: 55435 05/25/2016 ([id number]) OFFICE/OUTPATIENT VISIT EST Diagnosis: Acute sinusitis, unspecified[ICD10: J01.90] María Elena APPIAH [facility] CPT-4: 29381 04/26/2016 ([id number]) OFFICE/OUTPATIENT VISIT EST Diagnosis: Flushing[ICD10: R23.2] Diagnosis: Primary insomnia[ICD10: F51.01] María Elenamarcella LELISLINE Fabiola [facility]IA[facility] CPT-4: 18286 03/02/2016 ([id number]) OFFICE/OUTPATIENT VISIT EST Diagnosis: Other seasonal allergic rhinitis[ICD10: J30.2] Loan ELLISLINE Fabiola [facility] CPT-4: 71047 02/09/2016 ([id number]) OFFICE/OUTPATIENT VISIT EST Diagnosis: Primary insomnia[ICD10: F51.01] Diagnosis: Urinary tract infection, site not specified[ICD10: N39.0] María Elenamarcella ELLISLINE Fabiola 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] Diagnosis: Allergic rhinitis, unspecified[ICD10: J30.9] María Elena Waymindimaryjane ELLISMARÍA ELENA Fabiola [facility] CPT-4: 51914 12/08/2015 ([id number]) OFFICE/OUTPATIENT VISIT EST Diagnosis: Allergic rhinitis, unspecified[ICD10: J30.9] Diagnosis: Pain in unspecified joint[ICD10: M25.50] María Elena Td ELLISLINE AlanJj TD [facility] CPT-4: 38604 10/07/2015 ([id number]) OFFICE/OUTPATIENT VISIT EST Diagnosis: Essential (primary) hypertension[ICD10: I10] María Elena ELLISLINE Fabiola [facility] CPT-4: 93036 10/06/2015 OFFICE/OUTPATIENT VISIT EST Diagnosis: Localized enlarged lymph nodes[ICD10: R59.0] Diagnosis: Local infection of the skin and subcutaneous tissue, unspecified[ICD10: L08.9] June Flores MARÍA ELENA Fabiola [facility] CPT- 4: 38738 09/14/2015 ([id number]) OFFICE/OUTPATIENT VISIT EST Diagnosis: Essential (primary) hypertension[ICD10: I10] Diagnosis: Actinic keratosis[ICD10: L57.0] María Elena ELLISLINE Fabiola [facility] CPT-4: 92045 09/07/2015 ([id number]) OFFICE/OUTPATIENT VISIT EST Diagnosis: Essential (primary) hypertension[ICD10: I10] Diagnosis: Acute stress reaction[ICD10: F43.0] María Elena COLON Fabiola [facility] CPT-4: 67293 08/18/2015 ([id number]) OFFICE/OUTPATIENT VISIT EST Diagnosis: Essential (primary) hypertension[ICD10: I10] María Elena APPIAH [facility] CPT-4: 83611 07/07/2015 ([id number]) OFFICE/OUTPATIENT VISIT EST Diagnosis: Essential (primary) hypertension[ICD10: I10] María Elena APPIAH [facility] CPT-4: 88026 06/24/2015 ([id number]) OFFICE/OUTPATIENT VISIT EST Diagnosis: Essential (primary) hypertension[ICD10: I10] María Elena APP[facility] CPT-4: 29077 06/21/2015 ([id number]) OFFICE/OUTPATIENT VISIT EST Diagnosis: Essential (primary) hypertension[ICD10: I10] Diagnosis: Mixed hyperlipidemia[ICD10: E78.2] Diagnosis: Acute stress reaction[ICD10: F43.0] Diagnosis: Primary insomnia[ICD10: F51.01] María Elena APPIAH [facility] CPT-4: 46754 06/16/2015 ([id number]) OFFICE/OUTPATIENT VISIT EST Diagnosis: INSOMNIA NOS[ICD9: 780.52] Diagnosis: HYPERTENSION[ICD9: 401.9] Diagnosis: Stress reaction[ICD9: 308.9] María Elena APPIAH [facility] CPT-4: 29533 06/02/2015 ([id number]) OFFICE/OUTPATIENT VISIT EST Diagnosis: HYPERTENSION[ICD9: 401.9] Diagnosis: Stress reaction[ICD9: 308.9] María Elena APP[facility] CPT-4: 41351 05/20/2015 ([id number]) OFFICE/OUTPATIENT VISIT EST Diagnosis: Skin lesion[ICD9: 709.9] 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 CPT-4: 95781 03/16/2015 OFFICE/OUTPATIENT VISIT EST Diagnosis: Otitis media[ICD9: 382.9] Diagnosis: SINUSITIS, ACUTE[ICD9: 461.9] June [facility] CPT-4: 75709 09/11/2014 ([id number]) OFFICE/OUTPATIENT VISIT EST Diagnosis: HYPERLIPIDEMIA NEC/NOS[ICD9: 272.4] María Elena [facility] CPT-4: 46697 08/31/2014 ([id number]) OFFICE/OUTPATIENT VISIT EST Diagnosis: - I - HYPERTENSION[ICD9: 401.9] Diagnosis: HYPERLIPIDEMIA NEC/NOS[ICD9: 272.4] Mar[facility]: 72659 08/27/2014 ([id number]) OFFICE/OUTPATIENT VISIT EST Diagnosis: ABDOMINAL PAIN[ICD9: 789.00] Diagnosis: DYSPEPSIA[ICD9: 536.8] Diagnosis: Thoracic back pain[ICD9: 724.1] María [facility] C[facility]: 83744 07/21/2014 ([id number]) OFFICE/OUTPATIENT VISIT EST Diagnosis: ALLERGIC RHINITIS[ICD9: 477.9] María Elena [facility] CPT-4: 84255 07/15/2014 ([id number]) OFFICE/OUTPATIENT VISIT EST Diagnosis: EDEMA[ICD9: 782.3] Diagnosis: Chronic insomnia[ICD9: 780.52] María Elena [facility] CPT-4: 30719 05/18/2014 ([id number]) OFFICE/OUTPATIENT VISIT EST Diagnosis: Thyromegaly[ICD9: 240.9] Diagnosis: - I - HYPERTENSION[ICD9: 401.9] Diagnosis: ROUTINE MEDICAL EXAM[ICD9: V70.0] Diagnosis: EDEMA[ICD9: 782.3] María [facility] CPT[facility]: 95472 05/14/2014 OFFICE/OUTPATIENT VISIT EST Diagnosis: BRONCHITIS, ACUTE[ICD9: 466.0] Diagnosis: SINUSITIS, ACUTE[ICD9: 461.9] María Elena [facility] CPT-4: 66900 04/21/2014 OFFICE/OUTPATIENT VISIT EST Diagnosis: SINUSITIS, ACUTE[ICD9: 461.9] June [facility] CPT-4: 56215 03/04/2014 ([id number]) OFFICE/OUTPATIENT VISIT EST Diagnosis: VACCINE FOR TDAP[ICD10: Z23] María Elena [facility] CPT-4: 53112 02/27/2014 ([id number]) OFFICE/OUTPATIENT VISIT EST Diagnosis: Seborrheic keratoses, inflamed[ICD9: 702.11] Diagnosis: ACTINIC KERATOSIS[ICD9: 702.0] Diagnosis: INSOMNIA NOS[ICD9: 780.52] María Elena EKNTER [facility] CPT-4: 52102 01/13/2014 OFFICE/OUTPATIENT VISIT EST 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] Diagnosis: ALLERGIC RHINITIS[ICD9: 477.9] Diagnosis: Serous otitis media[ICD9: 381.4] María Elena [facility] CPT-4: 85349 12/24/2013 ([id number]) OFFICE/OUTPATIENT VISIT EST Diagnosis: SINUSITIS, ACUTE[ICD9: 461.9] Diagnosis: ALLERGIC RHINITIS[ICD9: 477.9] 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] María Elena [facility] CPT-4: 46999 11/12/2013 ([id number]) OFFICE/OUTPATIENT VISIT EST Diagnosis: ALLERGIC RHINITIS[ICD9: 477.9] Diagnosis: SINUSITIS, ACUTE[ICD9: 461.9] María Elena [facility] CPT-4: 31290 10/21/2013 ([id number]) OFFICE/OUTPATIENT VISIT EST Diagnosis: ASYMPTOMATIC VARICOSE VEINS[ICD9: 454.9] Diagnosis: INSOMNIA NOS[ICD9: 780.52] [facility]: 28213 09/22/2013 OFFICE/OUTPATIENT VISIT EST Diagnosis: SINUSITIS, ACUTE[ICD9: 461.9] June 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 CPT-4: 71129 08/04/2013 ([id number]) OFFICE/OUTPATIENT VISIT EST Diagnosis: Cervicalgia[ICD9: 723.1] Diagnosis: SPASM OF MUSCLE[ICD9: 728.85] Diagnosis: CEPHALGIA, TENSION[ICD9: 307.81] María Elena [facility] CPT-4: 99703 07/23/2013 ([id number]) OFFICE/OUTPATIENT VISIT EST 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] Diagnosis: ALLERGIC RHINITIS[ICD9: 477.9] María Elena [facility] CPT-4: 10579 06/23/2013 ([id number]) OFFICE/OUTPATIENT VISIT EST Diagnosis: ALLERGIC RHINITIS[ICD9: 477.9] Diagnosis: ACUTE SEROUS OTITIS MEDIA[ICD9: 381.01] 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] María Elena [facility] CPT-4: 86233 05/26/2013 ([id number]) OFFICE/OUTPATIENT VISIT EST Diagnosis: HYPERTENSION[ICD9: 401.9] Diagnosis: EDEMA[ICD9: 782.3] Diagnosis: Serous otitis media[ICD9: 381.4] María Elena [facility] CPT-4: 20638 04/16/2013 ([id number]) OFFICE/OUTPATIENT VISIT EST Diagnosis: SINUSITIS, ACUTE[ICD9: 461.9] Diagnosis: ALLERGIC RHINITIS[ICD9: 477.9] Diagnosis: EDEMA[ICD9: 782.3] Diagnosis: Thyromegaly[ICD9: 240.9] Diagnosis: MALAISE AND FATIGUE[ICD9: 780.79] María Elena Lopez AlanJj TD [facility] CPT-4: 37120 03/05/2013 ([id number]) OFFICE/OUTPATIENT VISIT EST Diagnosis: PAIN, LOWER BACK[ICD9: 724.2] Diagnosis: SPASM OF MUSCLE[ICD9: 728.85] María Elena JUARES AlanJj TD [facility] CPT-4: 53681 12/23/2012 OFFICE/OUTPATIENT VISIT EST Diagnosis: Low back pain[ICD9: 724.2] Lashawn Hicks [facility] CPT-4: 46804 12/16/2012 ([id number]) OFFICE/OUTPATIENT VISIT EST Diagnosis: PAIN, LOWER BACK[ICD9: 724.2] Diagnosis: SCIATICA[ICD9: 724.3] Diagnosis: Lumbar herniated disc[ICD9: 722.10] María Elena COLON AlanJj TD [facility] CPT-4: 86825 12/09/2012 ([id number]) OFFICE/OUTPATIENT VISIT EST Diagnosis: PAIN, LOWER BACK[ICD9: 724.2] Diagnosis: SCIATICA[ICD9: 724.3] Diagnosis: LUMBAR DISC DISPLACEMENT[ICD9: 722.10] María Elena MARIN AlanJj TD [facility] CPT-4: 10662 12/04/2012 OFFICE/OUTPATIENT VISIT EST Diagnosis: Pneumonia[ICD9: 486] Mary JUARES AlanJj TD [facility] CPT-4: 83479 11/22/2012 ([id number]) OFFICE/OUTPATIENT VISIT EST Diagnosis: PNEUMONIA, ORGANISM[ICD9: 486] Diagnosis: Exacerbation of RAD (reactive airway disease)[ICD9: 493.92] María Elena JUARES AlanJj TD [facility] CPT-4: 67678 11/21/2012 OFFICE/OUTPATIENT VISIT EST Diagnosis: HYPERTENSION[ICD9: 401.9] Diagnosis: Cephalgia[ICD9: 784.0] Lashawn Hicks SEAMUSDAWN [facility] CPT-4: 90379 10/29/2012 ([id number]) OFFICE/OUTPATIENT VISIT EST Diagnosis: MALAISE AND FATIGUE[ICD9: 780.79] Diagnosis: ARTHRALGIA-MULTIPLE SITES[ICD9: 719.49] María Elena [facility] CPT-4: 74108 10/14/2012 ([id number]) OFFICE/OUTPATIENT VISIT EST Diagnosis: URINARY FREQUENCY[ICD9: 788.41] María Elena APPIAH [facility] CPT-4: 33374 09/27/2012 ([id number]) OFFICE/OUTPATIENT VISIT EST Diagnosis: MALAISE AND FATIGUE[ICD9: 780.79] Diagnosis: ARTHRALGIA-MULTIPLE SITES[ICD9: 719.49] María Elena [facility] CPT-4: 77436 09/25/2012 ([id number]) OFFICE/OUTPATIENT VISIT EST Diagnosis: SINUSITIS, ACUTE[ICD9: 461.9] 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] María Elena [facility] CPT-4: 55876 08/29/2012 OFFICE/OUTPATIENT VISIT EST Diagnosis: ACTINIC KERATOSIS[ICD9: 702.0] Diagnosis: Inflamed seborrheic keratosis[ICD9: 702.11] Diagnosis: Skin cancer of face[ICD9: 173.31] Diagnosis: HYPERTENSION[ICD9: 401.9] María Elena [facility] CPT-4: 49658 08/12/2012 ([id number]) OFFICE/OUTPATIENT VISIT EST Diagnosis: ARTHRALGIA-MULTIPLE SITES[ICD9: 719.49] Diagnosis: GOUT[ICD9: 274.9] Diagnosis: HYPERTENSION[ICD9: 401.9] Diagnosis: Tachycardia[ICD9: 785.0] María Elena [facility] CPT-4: 03534 05/06/2012 ([id number]) OFFICE/OUTPATIENT VISIT EST Diagnosis: INSOMNIA NOS[ICD9: 780.52] María Elena [facility] CPT-4: 03753 04/03/2012 ([id number]) OFFICE/OUTPATIENT VISIT EST Diagnosis: INSOMNIA NOS[ICD9: 780.52] Diagnosis: HYPERTENSION[ICD9: 401.9] Diagnosis: MIGRAINE NOS/NOT INTRCBL[ICD9: 346.90] María Elena CulverJARED ValdesJj TD [facility] CPT-4: 13781 03/19/2012 ([id number]) OFFICE/OUTPATIENT VISIT EST Diagnosis: CELLULITIS[ICD9: 682.9] Diagnosis: Ankle pain[ICD9: 719.47] Diagnosis: HYPERTENSION[ICD9: 401.9] María Elena JUARES AlanJj [facility] CPT-4: 14996 02/20/2012 ([id number]) OFFICE/OUTPATIENT VISIT EST Diagnosis: MIGRAINE NOS/NOT INTRCBL[ICD9: 346.90] Diagnosis: Vomiting[ICD9: 787.03] María Elena JUARES AlanJj CIRO [facility] CPT-4: 11880 01/30/2012 ([id number]) OFFICE/OUTPATIENT VISIT EST Diagnosis: EDEMA[ICD9: 782.3] Diagnosis: HYPERTENSION[ICD9: 401.9] Diagnosis: ALLERGIC RHINITIS[ICD9: 477.9] Diagnosis: ARTHRALGIA-MULTIPLE SITES[ICD9: 719.49] María Elena REED AlanJj TD [facility] CPT-4: 84969 01/24/2012 ([id number]) OFFICE/OUTPATIENT VISIT EST Diagnosis: SPASM OF MUSCLE[ICD9: 728.85] Diagnosis: Thoracic back pain[ICD9: 724.1] Diagnosis: Cervical pain[ICD9: 723.1] María Elena Hicks [facility]YN [facility] CPT-4: 23433 01/10/2012 OFFICE/OUTPATIENT VISIT EST Diagnosis: PAIN, LOWER BACK[ICD9: 724.2] Diagnosis: LUMBAR DISC DISPLACEMENT[ICD9: 722.10] María Elena MARIN AlanJj TD [facility] CPT-4: 16672 12/11/2011 OFFICE/OUTPATIENT VISIT EST Diagnosis: MIGRAINE NOS/NOT INTRCBL[ICD9: 346.90] Diagnosis: SINUSITIS, ACUTE[ICD9: 461.9] María Elena [facility]ES [facility]j [facility] C[facility]: 99575 11/09/2011 OFFICE/OUTPATIENT VISIT EST Diagnosis: MIGRAINE NOS/NOT INTRCBL[ICD9: 346.90] Diagnosis: LYMPHADENOPATHY[ICD9: 785.6] María Elena Waymindimaryjane ELLISMARÍA ELENA AlanJj TD [facility] CPT-4: 48271 09/13/2011 OFFICE/OUTPATIENT VISIT EST Diagnosis: MALAISE AND FATIGUE[ICD9: 780.79] Diagnosis: ARTHRALGIA-MULTIPLE SITES[ICD9: 719.49] María Elena Seamusdawn MONTERO APARNAALCIDES AlanJj TD [facility] CPT-4: 87018 08/31/2011 OFFICE/OUTPATIENT VISIT EST Diagnosis: SINUSITIS, ACUTE[ICD9: 461.9] María Elena Seamusdawn MARÍA ELENA AlanJj TD [facility] CPT-4: 81817 07/20/2011 OFFICE/OUTPATIENT VISIT EST Diagnosis: HYPERTENSION[ICD9: 401.9] Diagnosis: PAIN, LOWER BACK[ICD9: 724.2] Diagnosis: SPASM OF MUSCLE[ICD9: 728.85] María Elena Seamusdawn MARÍA ELENA AlanJj TD [facility] CPT-4: 03126 07/06/2011 OFFICE/OUTPATIENT VISIT EST Diagnosis: MIGRAINE NOS/NOT INTRCBL[ICD9: 346.90] Diagnosis: HYPERTENSION[ICD9: 401.9] María Elena Seamusmindimaryjane MARÍA ELENA AlanJj [facility] CPT-4: 94398 05/22/2011 OFFICE/OUTPATIENT VISIT EST Diagnosis: SINUSITIS, ACUTE[ICD9: 461.9] Diagnosis: MIGRAINE NOS/NOT INTRCBL[ICD9: 346.90] Diagnosis: Dehydration[ICD9: 276.51] Diagnosis: Vomiting[ICD9: 787.03] María Elena JUARES AlanJj SEAMUSGALINA [facility] CPT-4: 98121 05/09/2011 ([id number]) OFFICE/OUTPATIENT VISIT EST María Elena ISAAC TANIA ValdesJj TD [facility] CPT-4: 41407 02/14/2011 ([id number]) OFFICE/OUTPATIENT VISIT EST María Elena ISAAC AbiolaJARED AlanJj TD [facility] CPT-4: 44699 02/03/2011 ([id number]) OFFICE/OUTPATIENT VISIT EST María Elena ISAAC [facility] CPT-4: 00663 01/31/2011 ([id number]) OFFICE/OUTPATIENT VISIT EST María Elena MONTEROQ [facility] CPT-4: 58007 01/25/2011 ([id number]) OFFICE/OUTPATIENT VISIT EST María Elena ISAAC [facility] CPT-4: 56905 01/18/2011 ([id number]) OFFICE/OUTPATIENT VISIT EST María Elena ISAAC [facility] CPT-4: 59716 11/29/2010 ([id number]) OFFICE/OUTPATIENT VISIT, EST María Elena BRAUNLINE [facility] CPT-4: 66687 10/10/2010 ([id number]) OFFICE/OUTPATIENT VISIT, EST María Elena [facility] CPT-4: 84647 06/07/2010 ([id number]) OFFICE/OUTPATIENT VISIT, EST María Elena MONTERO [facility] CPT-4: 62315 04/27/2010 ([id number]) OFFICE/OUTPATIENT VISIT, EST María Elena MONTERO [facility] CPT-4: 30717 04/05/2010 ([id number]) OFFICE/OUTPATIENT VISIT, EST María Elena MONTERO [facility] CPT-4: 51416 03/09/2010 ([id number]) OFFICE/OUTPATIENT VISIT, EST María Elena REED [facility] CPT-4: 93047 03/03/2010 ([id number]) OFFICE/OUTPATIENT VISIT, EST María Elena [facility] CPT-4: 99619 01/17/2010 ([id number]) PREV VISIT, EST, AGE 40-64 María Elena [facility] CPT-4: 11948 12/27/2009 Plan of Care Planned Activity Notes [...] ICD-10 : E11.65 10/07/2019 Appointment: Kathleen Zuniga [address] [place], [place] [phone] [place] OFFICE SURGERY 10/07/2019 Visit Diagnosis Plan: [...] 09/30/2019 Appointment: María Elena [facility] [phone] [facility] [facility] 09/30/2019 Patient Education: Premarin- [employer] Coupon [id number] [email or web address]/sampleil/resources/getResource/61/[email or web address]-[email or web address] Completed 09/30/2019 Appointment: María Elena Appiah WPtel: [address] [place], [place] [phone] [place] LAB 09/29/2019 Appointment: María Elena Appiah WPtel: [address] [place], [place] [phone] [place] Won't have the new insurance till [...] W06.XXXS 05/28/2019 Appointment: María Elena Appiah WPtel: [address] [place] [address] US FOLLOW UP 05/28/2019 Appointment: María Elena Appiah WPtel: [address] [place], [place] [phone] US BP CHECK 05/19/2019 Visit Diagnosis Plan: [...] 01/22/2019 Appointment: María Elena Appiah WPtel: [address] [place] [address] [place] FOLLOW UP 01/22/2019 Patient Education: estradiol- [employer] Coupon [id number] https://[email or web address]/Seeqpod/resources/getResource/61/[email or web address] Completed 01/22/2019 Appointment: María Elena Appiah WPtel: [address] [place] [address] [place] CANCELED 01/20/2019 Appointment: María Elena Appiah WPtel: [address] [place] [address] US LM NO SHOW 01/06/2019 Appointment: María Elena Appiah WPtel: [address] [place] [address] [place] CANCELED 10/17/2018 Appointment: María Elena Appiah WPtel: [address] [place] [address] US BP CHECK 10/09/2018 Visit Diagnosis Plan: [...] I10 09/30/2018 Appointment: María Elena Appiah WPtel: [address] [place] [address] US FOLLOW UP 09/30/2018 Visit Diagnosis Plan: [...] 08/27/2018 Appointment: María Elena Appiah WPtel: [address] [place], [place] [phone] ACUTE ILLNESS 08/27/2018 Appointment: María Elena Appiah WPtel: [address] [place], [place] [phone] [place] Patient stated she went out to [...] 08/09/2018 Appointment: María Elena Appiah WPtel: [address] [place], [place] [phone] ACUTE ILLNESS 08/09/2018 Appointment: María Elena Appiah WPtel: [address] [place], [place] [phone] NO SHOW 08/08/2018 Visit Diagnosis Plan: Anxiety [...] 07/22/2018 Appointment: María Elena Appiah WPtel: [phone] [facility] ACUTE ILLNESS 07/22/2018 Appointment: María Elena Appiah WPtel: [phone] [facility] [place] INJECTION 06/19/2018 Patient Education: Patient Medication [...] ICD-10 : L03.031 06/17/2018 Appointment: Kathleen Zuniga [address] [place] [address] ACUTE ILLNESS 06/17/2018 Patient Education: Patient Medication [...] ICD-10 : B02.9 05/16/2018 Appointment: Kathleen Zuniga [address] [place], [place] [address] ACUTE ILLNESS 05/16/2018 Patient Education: Patient [...] : L03.115 03/20/2018 Appointment: Kathleen Zuniga [address] [id number] FOLLOW UP 03/20/2018 Patient Education: Patient Medication [...] : L03.115 03/18/2018 Appointment: Kathleen Zuniga [address] [facility] FOLLOW UP 03/18/2018 Patient Education: Patient [...] : L03.115 03/15/2018 Appointment: Kathleen Zuniga [address] [phone] ACUTE ILLNESS 03/15/2018 Patient Education: Patient Medication [...] ICD-10 : J01.90 02/11/2018 Appointment: Kathleen Zuniga [address] [place], [place] [phone] ACUTE ILLNESS 02/11/2018 Patient Education: Patient Medication Summary Completed 02/11/2018 Appointment: María Elena Appiah WPtel: [phone] [facility] INJECTION 02/01/2018 Patient Education: Patient Medication Summary [...] : M51.16 01/30/2018 [facility]ment: [facility] [facility] 01/30/2018 Patient Education: Patient Medication [...] E11.65 12/18/2017 Appointment: María Elena Appiah WPtel: [address] [place] [address] Annual Well Visit 12/18/2017 Patient Education: Patient Medication Summary Completed 12/18/2017 Care Plan: Referral Order SNOMED-CT : [id number] Pending 12/18/2017 Appointment: María Elena Appiah WPtel: [address] [place] [address] INJECTION 12/10/2017 Patient Education: Patient Medication Summary [...] ICD-10 : L03.031 12/07/2017 Appointment: Kathleen Zuniga [address] [place] [address] ACUTE ILLNESS 12/07/2017 Patient Education: Patient Medication [...] : J01.00 10/08/2017 Appointment: [facility] [address] [facility] [facility] 10/08/2017 Patient Education: Patient Medication Summary Completed 10/08/2017 Appointment: María Elena [facility] [phone] [facility] [place] INJECTION 09/21/2017 Patient Education: Patient Medication [...] : R06.83 09/20/2017 Appointment: Kathleen Zuniga [address] [facility] ACUTE ILLNESS 09/20/2017 Patient Education: Patient [...] : L60.0 08/29/2017 Appointment: Kathleen Zuniga [address] [facility] OFFICE SURGERY 08/29/2017 Patient Education: Patient Medication Summary Completed 08/29/2017 Visit Diagnosis Plan: Actinic keratosis Discussion: Cr yotherapy as above ICD-9 : 702.0 ICD-10 : L57.0 08/01/2017 Appointment: María Elena Appiahtel: [address] [place] [address] OFFICE SURGERY 08/01/2017 Patient Education: Patient Medication Summary Completed 08/01/2017 Appointment: María Elena Appiahtel: [address] [place] [address] PATIENT THOUGHT APPOINTMENT WAS TOMORROW 07/26/17 CALLED 15 MINUTES BEFORE APPT TO SAY SHE DIDN'T HAVE ANYONE TO COVER HER BUSINESS AND WOULD NOT MAKE IT NO SHOW 07/25/2017 Visit Diagnosis Plan: Cellulitis of left toe Discussio n: Clindamycin and notify if worsening or persistis ICD-9 : 681.10 ICD-10 : L03.032 07/19/2017 Appointment: María Elena Appiah WPtel: [address] [place] [address] MEDICATION REVIEW 07/19/2017 Patient Education: Patient Medication Summary Completed 07/19/2017 Appointment: María Elena Appiah WPtel: [address] [place], [place] [phone] [place] CANCELED 07/04/2017 Visit Diagnosis Plan: Generalized hyperhidrosis Discus ian: CBC, CMP, TSH, free T4 ordered to assess. will review labs. ICD-9 : 780.8 ICD-10 : R61 06/27/2017 Visit Diagnosis Plan: Chronic sinusitis, unspecified D iscussion: Referral sent to dr. albarado in [place] per patient request. patient has been treated multiple times for sinus infections with no recovery. patient was seen by dr sanchez in the past with no interventions. patient has deviated septum which may be affecting her sinuses. 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, including hip Discussion: Shave removal of above lesio n--sent to pathology ICD-9 : 216.7 ICD-10 : D23.72 01/24/2017 Appointment: María Elena Appiah WPtel: [address] [place] [address] 01/23 confirmed ~ OFFICE SURGERY 01/24/2017 Patient Education: Patient Medication Summary Completed 01/24/2017 Appointment: Loan Sánchez [address] [place] [address] 01/09 rescheduled~sl RESCHEDULED 01/15/2017 Visit Diagnosis Plan: [...] 12/13/2016 Appointment: María Elena Appiah WPtel: [address] [place] [address] 12/12 confirmed ~ MEDICATION REVIEW 12/13/2016 Patient Education: Patient Medication Summary Completed 12/13/2016 Appointment: María Elena Appiah WPtel: [address] [place] [address] rescheduled for 12/13/16 at 11am RESCHEDULED 0 12/06/2016 Appointment: María Elena Appiah WPtel: [address] [place] [address] [place] CANCELED 11/23/2016 Patient Education: Patient Medication [...] F51.01 11/01/2016 Appointment: María Elena Appiah WPtel: [address] [place], [place] [phone] 10/31 lm `sl 11/01 lm`sl MEDICATION REVIEW 017 Patient Education: Patient Medication Summary Completed 11/01/2016 Referral: Canelo Overton WPtel: [address] [id number] [place] Referral Initiated 10/30/2016 Visit Diagnosis Plan: [...] Z01.419 10/17/2016 Appointment: María Elena Appiah WPtel: [facility]6 [id number] 10/16 confirmed ~sl PAP 10/17/2016 Patient Education: Patient Medication Summary Completed 10/17/2016 Care Plan: MAMMOGRAM SCREENING LOINC : 2 6347-5 Pending 10/17/2016 Visit Diagnosis Plan: Other seasonal allergic rhinitis Discussion: Decadron/Garamycin Nasal Julian Mix Too soon for steroid Retry zyrtec 10mg daily ICD-9 : 477.9 ICD-10 : J30.2 10/10/2016 Appointment: María Elena Appiah WPtel: [phone] [id number] [place] FOLLOW UP 10/10/2016 Patient Education: Patient Medication Summary Completed 10/10/2016 Appointment: María Elena Appiah WPtel: [address] [place], [place] [id number] 10/02 reschedule `sl RESCHEDULED 10/02/2016 Visit Plan: See surgery for removal of n ew left arm lesion and right foot lesion Lyrica to use next month for left arm paresthesias Continue current meds Discussed sunscreen/sunblock combo 09/19/2016 Appointment: María Elena Appiah WPtel: [address] [place], [place] [id number] 09/18 confirmed ~ FOLLOW UP 09/19/2016 Patient Education: Patient Medication Summary Completed 09/19/2016 Patient Education: Patient Medication Summary Completed 09/18/2016 Care Plan: MAMMOGRAM BOTH BREASTS LOINC : 32724-8 Pending 09/18/2016 Visit Plan: Discussed that needs [...] 08/24/2016 Appointment: María Elena Appiah WPtel: [address] [place], [place] [phone] ACUTE ILLNESS 08/24/2016 Patient Education: Patient Medication Summary Completed 08/24/2016 Patient Education: Patient Medication Summary Completed 08/23/2016 Care Plan: MAMMOGRAM SCREENING LOINC : 2 6347-5 Pending 08/23/2016 Visit Plan: Finish doxycycline Add Breo 100/25 1 p BID for 2 weeks If not improving within next 2 days will get CXR 08/16/2016 Appointment: María Elena Appiah WPtel: [address] [place], [place] [phone] ACUTE ILLNESS 08/16/2016 Patient Education: Patient Medication Summary Completed 08/16/2016 Visit Plan: Supportive care. Rest, Fluid s, Tylenol/Motrin prn fever or bodyaches. Notify if worsening symptoms. Doxycyline and Prednisone 08/10/2016 Appointment: María Elena Appiah WPtel: [address] [place] [address] 08/09 lm`sl....confirmed-sp FOLLOW UP 09/2015 Patient Education: Patient Medication Summary Completed 08/10/2016 Visit Plan: Saline nasal flushes prn. Ty lenol/Motrin prn headache. Notify if persists/symptoms worsening. Dexamethasone 8mg IM today May use coricedan and mucinex 08/02/2016 Appointment: María Elena Appiah WPtel: [address] [place] [address] ACUTE ILLNESS 08/02/2016 Patient Education: Patient Medication Summary Completed 08/02/2016 Visit Plan: Cryotherapy as above and lef t forearm lesion removal as above with 5-0 punch biopsy and sent to path Return in 10 days for suture removal 08/01/2016 Appointment: María Elena Appiah WPtel: [address] [place] [address] 07/31 confirmed`~sl OFFICE SURGERY 08/01/2016 Patient Education: Patient Medication Summary Completed 08/01/2016 Visit Plan: Stop clindamycin Check CBC, CMP, ESR now/STAT 07/27/2016 Appointment: María Elena Appiah WPtel: [address] [place] [address] ACUTE ILLNESS 07/27/2016 Patient Education: Patient Medication Summary Completed 07/27/2016 Visit Plan: Update lab and check ABIs to start with Will likely need cardiology evaluation to rule out PVD Clindamycin for 10 days Daily yogurt or probiotic Will return for removal of left arm lesions 07/20/2016 Appointment: María Elena Appiah WPtel: [address] [place] [address] ACUTE ILLNESS 07/20/2016 Patient Education: Patient Medication Summary Completed 07/20/2016 Patient Education: Patient Medication Summary Completed 07/20/2016 Care Plan: MAMMOGRAM BOTH BREASTS LOINC : 79785-2 Pending 07/20/2016 Care Plan: US EXAM CHEST LOINC : 80425-5 Pending 07/20/2016 Visit Plan: Wound culture collected from left great toe Appearance is somewhat staph like Rx as above Wound cleanser and skin care reviewed May need to add oral antibiotic if sores do not heal or continue to reoccur 07/06/2016 Appointment: Loan Sánchez [address] [place] [address] ACUTE ILLNESS 07/06/2016 Patient Education: Patient Medication Summary Completed 07/06/2016 Appointment: María Elena Appiah WPtel: [address] [place] [address] [place] INJECTION 05/25/2016 Patient Education: Patient Medication Summary Completed 05/25/2016 Visit Plan: Saline nasal flushes prn. Ty lenol/Motrin prn headache. Notify if persists/symptoms worsening. Dexamethasone and Rocephin given 04/26/2016 Appointment: María Elena Appiah WPtel: [address] [place] [address] ACUTE ILLNESS 04/26/2016 Patient Education: Patient Medication Summary Completed 04/26/2016 Visit Plan: Check CBC, CMP, TSH, FreeT4, HbA1C, estradiol, lipids in AM 03/02/2016 Appointment: María Elena Appiah WPtel: [address] [place] [address] 03/01 lm~sl ACUTE ILLNESS 03/02/2016 Patient Education: Patient Medication Summary Completed 03/02/2016 Visit Plan: Exam is nearly normal Needs to be taking daily antihistamine Would prefer to use oral steroids instead of shot but patient insist that oral steroids cause horrible headaches for her Will given kenalog IM instead 02/09/2016 Appointment: Loan Sánchez [address] [place] [address] ACUTE ILLNESS 02/09/2016 Patient Education: Patient Medication Summary Completed 02/09/2016 Visit Plan: Culture urine Macrobid DC xa nax Trial of Ativan 1mg q HS 01/24/2016 Appointment: María Elena Appiah WPtel: [address] [place] [address] ACUTE ILLNESS 01/24/2016 Patient Education: Patient Medication Summary Completed 01/24/2016 Visit Plan: No steroid or rocephin injec tion warranted Can have oral prednisone Continue current home regimen Needs to follow up with Dr Sanchez if problems persist 12/23/2015 Appointment: Loan Sánchez [address] [place] [address] ACUTE ILLNESS 12/23/2015 Patient Education: Patient Medication Summary Completed 12/23/2015 Visit Plan: Saline nasal flushes prn. Ty lenol/Motrin prn headache. Notify if persists/symptoms worsening. Kenalog 40mg IM today 12/08/2015 Appointment: María Elena Appiah WPtel: [address] [place] [address] 12/06 confirmed~ ACUTE ILLNESS 12/08/2015 Patient Education: Patient Medication Summary Completed 12/08/2015 Appointment: María Elena Appiah WPtel: [address] [place] [address] ACUTE ILLNESS 11/18/2015 Patient Education: Patient Medication Summary Completed 10/11/2015 Appointment: María Elena Appiah WPtel: [address] [place] [address] [place] INJECTION 10/07/2015 Patient Education: Patient Medication Summary Completed 10/07/2015 Visit Plan: Check renal arterial doppler s and ECHO Change amlodopine to lotrel 5/20mg q HS Will need stress test as well Check CMP, uric acid, ESR 10/06/2015 Appointment: María Elena Appiah WPtel: [address] [place] [address] ACUTE ILLNESS 10/06/2015 Patient Education: Patient Medication Summary Completed 10/06/2015 Patient Education: [facility] - [employer]aving [employer] - Amlodipine Besylate - 18-64 - Dynamic Portal ID Completed 10/06/2015 Appointment: María Elena Appiah WPtel: [address] [place] [address] FOLLOW UP 09/22/2015 Visit Plan: Cephalexin 500 mg PO bid Mery ly topical Mupirocin to lesions on left lateral neck and face Follow-up in one week. Sooner if symptoms worsen 09/14/2015 Appointment: June Flores WPtel: [address] [place] [address] ACUTE ILLNESS 09/14/2015 Patient Education: Patient Medication Summary Completed 09/14/2015 Visit Plan: Change bystolic to bedtime d osing and amlodopine to morning dosing Cryotherapy as above to AKs 09/07/2015 Appointment: María Elena Appiah WPtel: [address] [place] [address] 09/06 appointment made and confirmed ~sl FOLLOW UP 09/07/2015 Patient Education: Patient Medication Summary Completed 09/07/2015 Visit Plan: Increase bystolic back to 20 mg daily but will split and take 10mg in AM and 10mg in PM Stress Reducers 08/18/2015 Appointment: María Elena Appiah WPtel: [address] [place] [address] 08/17/15 appt confirmed cn ACUTE ILLNESS 08/18 Patient Education: Patient Medication Summary Completed 08/18/2015 Appointment: María Elena Appiah WPtel: [address] [place] [address] BP CHECK 07/07/2015 Patient Education: Patient Medication Summary Completed 07/07/2015 Appointment: María Elena Appiah WPtel: [address] [place] [address] BP CHECK 06/24/2015 Patient Education: Patient Medication Summary Completed 06/24/2015 Appointment: María Elena Appiah WPtel: [address] [place] [address] BP CHECK 06/21/2015 Patient Education: Patient Medication Summary Completed 06/21/2015 Visit Plan: Lab discussed Continue curre nt meds and lifestyle modification Recheck lab in 6mos 06/16/2015 Appointment: María Elena Appiah WPtel: [address] [place], [place] [phone] 06/15 confirmed FOLLOW UP 06/16/2015 Patient Education: Patient Medication Summary Completed 06/16/2015 Patient Education: Patient Medication Summary Completed 06/15/2015 Visit Plan: Increase cymbalta to 60mg q HS Keep clonidine at current dose Recheck 2weeks Change xanax to klonopin 06/02/2015 Appointment: María Elena Appiah WPtel: [address] [place] [address] 06/02 lm FOLLOW UP 06/02/2015 Patient Education: Patient Medication Summary Completed 06/02/2015 Appointment: María Elena Appiah WPtel: [address] [place] [address] ACUTE ILLNESS 05/24/2015 Visit Plan: Increase clonidine to 0.2mg q HS Add cymbalta 30mg q HS Recheck 2weeks Stress Reducers Check fasting lab Discussed sleep study 05/20/2015 Appointment: María Elena Appiah WPtel: [address] [place] [address] ACUTE ILLNESS 05/20/2015 Patient Education: Patient Medication Summary Completed 05/20/2015 Patient Education: [facility] - [employer] - Cymbalta - 18-64 - Dynamic Portal ID Completed 05/20/2015 Appointment: María Elena Appiah WPtel: [address] [place] [address] BP CHECK 05/19/2015 Patient Education: Patient Medication Summary Completed 05/19/2015 Visit Plan: Topical Bactroban alternatin g with topical betamethasone Recheck 2weeks 05/10/2015 Appointment: María Elena Appiah WPtel: [address] [place] [address] 05/07 vm cn...05/07 appt confirmed OFFICE SURGER Y 05/10/2015 Patient Education: Patient Medication Summary Completed 05/10/2015 Referral: Patrick Chandler WPtel: [address] [place] [phone] [place] Referral Initiated 05/04/2015 Visit Plan: Saline nasal flushes prn. Ty lenol/Motrin prn headache. Notify if persists/symptoms worsening. Depomedrol 40mg IM today 03/16/2015 Appointment: María Elena Appiah WPtel: [address] [place], [place] [phone] ACUTE ILLNESS 03/16/2015 Patient Education: Patient Medication Summary Completed 03/16/2015 Appointment: María Elena Appiah WPtel: [address] [place] [address] ER Follow UP 03/09/2015 Visit Plan: Cryotherapy to lesions as ab ove 10/27/2014 Appointment: María Elena Appiah WPtel: [address] [place] [address] OFFICE SURGERY 10/27/2014 Patient Education: Patient Medication Summary Completed 10/27/2014 Appointment: June Flores WPtel: [address] [place] [address] ACUTE ILLNESS 09/11/2014 Patient Education: Patient Medication Summary Completed 09/11/2014 Visit Plan: Lab discussed Lipitor 10mg d aily Coenzyme Q-10 400mg daily Vitamin D3 5000u daily Recheck lipids with LFTs in 3mos then fwup 08/31/2014 Appointment: María Elena Appiah WPtel: [address] [place], [place] [phone] 08/28 voicemail FOLLOW UP 08/31/2014 Patient Education: Patient Medication Summary Completed 08/31/2014 Appointment: María Elena Appiah WPtel: [address] [place], [place] [phone] [place] LAB 08/27/2014 Appointment: María Elena Appiah WPtel: [address] [place], [place] [phone] [place] LAB 08/27/2014 Patient Education: Patient Medication Summary Completed 08/27/2014 Appointment: María Elena Appiahl: [address] [place] [address] ACUTE ILLNESS 07/23/2014 Appointment: María Elena Appiah WPtel: [address] [place] [address] ACUTE ILLNESS 07/21/2014 Patient Education: Patient Medication Summary Completed 07/21/2014 Visit Plan: Kenalog 40mg IM today Contin ue narendra and singulair Add Flonase 07/15/2014 Appointment: María Elena Appiah WPtel: [address] [place] [address] ACUTE ILLNESS 07/15/2014 Appointment: María Elena Appiah WPtel: [address] [place] [address] ACUTE ILLNESS 07/15/2014 Patient Education: Patient Medication Summary Completed 07/15/2014 Visit Plan: Will do metolazone 2.5mg prn with 6 potassium and see if causes as severe cramping Trial of of seroquel XR 50mg q PM with evening meal and let us know how works 05/18/2014 Appointment: María Elena Appiah WPtel: [address] [place] [address] 05/15 left message FOLLOW UP 05/18/2014 Patient Education: Patient Medication Summary Completed 05/18/2014 Appointment: María Elena Appiah WPtel: [address] [place] [address] LAB 05/14/2014 Patient Education: Patient Medication Summary Completed 05/14/2014 Appointment: María Elena Appiah WPtel: [address] [place], [place] [phone] [place] INJECTION 04/22/2014 Visit Plan: Rocephin and Kenalog today a nd finish abx given from urgent care 04/21/2014 Appointment: María Elena Appiah WPtel: [address] [place] [address] [place] INJECTION 04/21/2014 Patient Education: Patient Medication Summary Completed 04/21/2014 Appointment: June Flores WPtel: [address] [place] [address] ACUTE ILLNESS 03/04/2014 Patient Education: Patient Medication Summary Completed 03/04/2014 Appointment: María Elena Appiah WPtel: [address] [place] [address] INJECTION 02/27/2014 Patient Education: Patient Medication Summary Completed 02/27/2014 Visit Plan: Cryotherapy as above to all lesions Patient wants to try no meds for insomnia for a while and see how goes 01/13/2014 Appointment: María Elena Appiah WPtel: [address] [place] [address] OFFICE SURGERY 01/13/2014 Patient Education: Patient Medication Summary Completed 01/13/2014 Visit Plan: Stop Melatonin Stop Soma Tri al of trazadone 75mg q HS See ENT for possible tubes as has had chronic ETD and serous otitis media with numerous steroids 12/24/2013 Appointment: María Elena Appiah WPtel: [address] [place] [address] ACUTE ILLNESS 12/24/2013 Patient Education: Patient Medication Summary Completed 12/24/2013 Visit Plan: Saline nasal flushes prn. Ty lenol/Motrin prn headache. Notify if persists/symptoms worsening. 11/12/2013 Appointment: María Elena Appiah WPtel: [address] [place] [address] ACUTE ILLNESS 11/12/2013 Patient Education: Patient Medication Summary Completed 11/12/2013 Appointment: María Elena Appiah WPtel: [address] [place] [address] ACUTE ILLNESS 10/21/2013 Patient Education: Patient Medication Summary Completed 10/21/2013 Visit Plan: Sleep hygiene and sleep rout ine Melatonin 10mg q HS Support stockings and observe 09/22/2013 Appointment: María Elena Appiah: [address] [place], [place] [phone] ACUTE ILLNESS 09/22/2013 Patient Education: Patient Medication Summary Completed 09/22/2013 Appointment: June Flores WPtel: [address] [place], [place] [phone] ACUTE ILLNESS 08/27/2013 Patient Education: Patient Medication Summary Completed 08/27/2013 Visit Plan: Proceed with CT scan of head /neck Proceed with occipital nerve injections Butrans 20mcg patch weekly until can get into see Dr. Mcdonough for injections 08/04/2013 Appointment: María Elena Appiah WPtel: [address] [place] [address] FOLLOW UP 08/04/2013 Patient Education: Patient Medication Summary Completed 08/04/2013 Visit Plan: OMT done Daily neck stretche s, moist heat Increase Celebrex to 200mg BID Add flexeril 07/23/2013 Appointment: María Elena Appiah WPtel: [address] [place] [address] 07/22 voicemail FOLLOW UP 07/23/2013 Patient Education: Patient Medication Summary Completed 07/23/2013 Appointment: María Elena Appiah WPtel: [address] [place] [address] ACUTE ILLNESS 06/23/2013 Patient Education: Patient Medication Summary Completed 06/23/2013 Appointment: María Elena Appiah WPtel: [address] [place] [address] ACUTE ILLNESS 05/26/2013 Patient Education: Patient Medication Summary Completed 05/26/2013 Visit Plan: Decrease clonidine to 0.1mg TID If BP remains stable consider decreasing amlodopine Prednisone for 5 days BP check in 1mo 04/16/2013 Appointment: María Elena Appiah WPtel: [address] [place] [address] 04/14 pt called and confirmed appt FOLLOW UP 04/16/2013 Patient Education: Patient Medication Summary Completed 04/16/2013 Appointment: María Elena Appiah WPtel: [address] [place] [address] ACUTE ILLNESS 03/05/2013 Patient Education: Patient Medication Summary Completed 03/05/2013 Visit Plan: Pt has MARIA ELENA on with Dr. Mcdonough Continue Butrans patch Refill Hydrocodone early tomorrow 12/23/2012 Appointment: María Elena Appiah WPtel: [address] [place] [address] FOLLOW UP 12/23/2012 Patient Education: Patient Medication Summary Completed 12/23/2012 Appointment: Lashawn Eckert WPtel: [address] [place] [address] ACUTE ILLNESS 12/16/2012 Patient Education: Patient Medication Summary Completed 12/16/2012 Visit Plan: Proceed with updated MRI of LS spine Continue gabapentin and add soma and diclofenac Will likely need to go for another epidural 12/09/2012 Appointment: María Elena Appiah WPtel: [address] [place] [address] ACUTE ILLNESS 12/09/2012 Patient Education: Patient Medication Summary Completed 12/09/2012 Visit Plan: Injection as above Finish me drol dose pack Chiropracter this afternoon 12/04/2012 Appointment: María Elena Appiah WPtel: [address] [place] [address] ACUTE ILLNESS 12/04/2012 Patient Education: Patient Medication Summary Completed 12/04/2012 Appointment: Mary Tillmna WPtel: [address] [place] [address] FOLLOW UP 11/22/2012 Patient Education: Patient Medication Summary Completed 11/22/2012 Appointment: María Elena Appiah WPtel: [address] [place] [address] ACUTE ILLNESS 11/21/2012 Patient Education: Patient Medication Summary Completed 11/21/2012 Appointment: María Elena Appiah WPtel: [address] [place] [address] [place] BP CHECK 11/07/2012 Patient Education: Patient Medication Summary Completed 11/07/2012 Visit Plan: reports extra clonidine and extra amlodipine and extra alprazalam. extra Ketolorac and promethazine last night. Bystolic 10 mg QAM and will continue all other blood pressure meds. Pt. encouraged to rest and hydrate. Discussed stroke and MS symptoms. Pt. instructed to seek ER eval if symptoms worsen or headache persists. Pt. agrees to ER eval/EMS transport if symptoms worsen. BP re-check. 10/29/2012 Appointment: Lashawn Eckert WPtel: [address] [place] [address] ACUTE ILLNESS 10/29/2012 Patient Education: Patient Medication Summary Completed 10/29/2012 Appointment: María Elena Appiah WPtel: [address] [place] [address] ACUTE ILLNESS 10/14/2012 Patient Education: Patient Medication Summary Completed 10/14/2012 Appointment: María Elena Appiah WPtel: [address] [place] [address] UA 09/27/2012 Patient Education: Patient Medication Summary Completed 09/27/2012 Appointment: María Elena Appiah WPtel: [address] [place] [address] ACUTE ILLNESS 09/25/2012 Patient Education: Patient Medication Summary Completed 09/25/2012 Appointment: María Elena Appiah WPtel: [address] [place] [address] BP CHECK 09/24/2012 Appointment: María Elena Appiah WPtel: [address] [place] [address] ACUTE ILLNESS 08/29/2012 Patient Education: Patient Medication Summary Completed 08/29/2012 Visit Plan: Cryotherapy as above See Karlos m for right ear lesion--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 ACUTE ILLNESS 05/06/2012 Patient Education: Patient Medication Summary Completed 05/06/2012 Visit Plan: Pt wants to hold on any furt her sleep medications 04/03/2012 Appointment: María Elena Appiah WPtel: [address] [place], [place] [phone] FOLLOW UP 04/03/2012 Patient Education: Patient Medication Summary Completed 04/03/2012 Appointment: María Elena Appiah WPtel: [address] [place], [place] [phone] [place] FOLLOW UP 03/19/2012 Patient Education: Patient Medication Summary Completed 03/19/2012 Appointment: María Elena Appiah WPtel: [address] [place], [place] [phone] BP CHECK 02/22/2012 Patient Education: Patient Medication Summary Completed 02/22/2012 Appointment: María Elena Appiah WPtel: [address] [place], [place] [phone] BP CHECK 02/21/2012 Patient Education: Patient Medication Summary Completed 02/21/2012 Visit Plan: Doxycycline and bactroban fo r foot Supportive care on ankles and knees Add norvasc for BP 02/20/2012 Appointment: María Elena Appiahtel: [address] [place], [place] [phone] ER Follow UP 02/20/2012 Patient Education: Patient Medication Summary Completed 02/20/2012 Appointment: María Elena Appiah WPtel: [address] [place] [address] ACUTE ILLNESS 01/30/2012 Patient Education: Patient Medication Summary Completed 01/30/2012 Appointment: María Elena Appiah WPtel: [address] [place] [address] ACUTE ILLNESS 01/24/2012 Patient Education: Patient Medication Summary Completed 01/24/2012 Visit Plan: Daily back stretches, moist heat, Biofreeze prn OMT done 01/10/2012 Appointment: María Elena Appiah WPtel: [address] [place] [address] ACUTE ILLNESS 01/10/2012 Patient Education: Patient Medication Summary Completed 01/10/2012 Appointment: María Elena Appiah WPtel: [address] [place] [address] FOLLOW UP 12/11/2011 Patient Education: Patient Medication Summary Completed 12/11/2011 Appointment: María Elena Appiah WPtel: [address] [place] [address] ACUTE ILLNESS 11/09/2011 Patient Education: Patient Medication Summary Completed 11/09/2011 Appointment: María Elena Appiahtel: [address] [place] [address] ACUTE ILLNESS 09/13/2011 Patient Education: Patient Medication Summary Completed 09/13/2011 Visit Plan: Check CBC, TSH, Free T4, CMP , ESR, Vit D, B12 now Start Prednisone today 08/31/2011 Appointment: María Elena Appiah WPtel: [address] [place] [address] ACUTE ILLNESS 08/31/2011 Patient Education: Patient Medication Summary Completed 08/31/2011 Appointment: María Elena Appiah WPtel: [address] [place] [address] [place] INJECTION 07/20/2011 Patient Education: Patient Medication Summary Completed 07/20/2011 Visit Plan: Continue current meds Monite r BP Cont stretches from PT 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 07/06/2011 Appointment: María Elena Appiahtel: [address] [place], [place] [phone] [place] FOLLOW UP 07/06/2011 Patient Education: Patient Medication Summary Completed 07/06/2011 Appointment: María Elena Appiah WPtel: [address] [place] [address] [place] BP CHECK 06/06/2011 Patient Education: Patient Medication Summary Completed 06/06/2011 Visit Plan: Add Bystolic at 2.5mg QAM Ad d Robaxin 750mg 2 po q HS BP check in 2wks 05/22/2011 Appointment: María Elena Appiahtel: [address] [place] [address] FOLLOW UP 05/22/2011 Patient Education: Patient Medication Summary Completed 05/22/2011 Appointment: María Elena Appiahtel: [address] [place], [place] [phone] ER Follow UP 05/09/2011 Patient Education: Patient Medication Summary Completed 05/09/2011 Appointment: María Elena Appiahtel: [address] [place], [place] [phone] [place] FOLLOW UP 02/22/2011 Visit Plan: Rx written for Hydrocodone 1 0/325mg #240 See Ortho 02/14/2011 Appointment: María Elena Appiahtel: [address] [place], [place] [phone] [place] OMT 02/14/2011 Patient Education: Patient Medication [...] lab work. 02/03/2011 Appointment: Lashawn Eckert WPtel: [address] [place] [address] ACUTE ILLNESS 02/03/2011 Patient Education: Patient Medication Summary Completed 02/03/2011 Visit Plan: OMT done Cont daily stretche s 01/31/2011 Appointment: María Elena Appiah WPtel: [address] [place] [address] ACUTE ILLNESS 01/31/2011 Patient Education: Patient Medication Summary Completed 01/31/2011 Visit Plan: Continue pain meds OMT done Proceed with PT No work this summer01/25/2011 Appointment: María Elena Appiah WPtel: [address] [place] [address] ACUTE ILLNESS 01/25/2011 Patient Education: Patient Medication Summary Completed 01/25/2011 Visit Plan: Start PT Long discussion abo ut getting pain meds from only us and can only have max of 4grams of tylenol per day Change to Hydrocodone 10/325mg 1- 2 po TID prn pain--#180 called to Radha 01/18/2011 Appointment: María Elena Appiah WPtel: [address] [place] [address] FOLLOW UP 01/18/2011 Patient Education: Patient Medication Summary Completed 01/18/2011 Visit Plan: Daily back stretches, moist heat, Biofreeze prn 11/29/2010 Appointment: María Elena Appiah WPtel: [address] [place] [address] ER Follow UP 11/29/2010 Patient Education: Patient Medication Summary Completed 11/29/2010 Visit Plan: Saline nasal flushes prn. Ty lenol/Motrin prn headache. Notify if persists/symptoms worsening. Finish augmentin Add Medrol Dose Pack 10/10/2010 Appointment: María Elena Appiahtel: [address] [place] [address] ACUTE ILLNESS 10/10/2010 Patient Education: Patient Medication Summary Completed 10/10/2010 Visit Plan: Cryotherapy x3 to multiple l esions on both forearms 07/19/2010 Appointment: María Elena Appiah WPtel: [address] [place] [address] OFFICE SURGERY 07/19/2010 Patient Education: Patient Medication Summary Completed 07/19/2010 Appointment: María Elena Appiahtel: [address] [place] [address] BP CHECK 07/06/2010 Patient Education: Patient Medication Summary Completed 07/06/2010 Appointment: María Elena Appiahtel: [address] [place] [address] BP CHECK 06/30/2010 Patient Education: Patient Medication Summary Completed 06/30/2010 Appointment: María Elena Appiahtel: [address] [place] [address] BP CHECK 06/20/2010 Patient Education: Patient Medication Summary Completed 06/20/2010 Visit Plan: Change Diovan to Exforge 160 /5mg QD OMT done to thoracics BP check in 2wks 06/07/2010 Appointment: María Elena Appiah WPtel: [address] [place] [address] [place] FOLLOW UP 06/07/2010 Patient Education: Patient Medication Summary Completed 06/07/2010 Appointment: María Elena Appihatel: [address] [place] [address] [place] BP CHECK 06/03/2010 Patient Education: Patient Medication Summary Completed 06/03/2010 Appointment: María Elena Appiah WPtel: [address] [place] [address] BP CHECK 06/01/2010 Patient Education: Patient Medication Summary Completed 06/01/2010 Visit Plan: Irritated skin tags to left neck x2 excised at base with scissors and base cauterized 05/30/2010 Appointment: María Elena Appiah WPtel: [address] [place] [address] OFFICE SURGERY 05/30/2010 Patient Education: Patient Medication Summary Completed 05/30/2010 Visit Plan: Saline nasal flushes prn. Ty lenol/Motrin prn headache. Notify if persists/symptoms worsening. Restart Nasonex Has allergy testing set for May 25 04/27/2010 Appointment: María Elena Appiah WPtel: [address] [place] [address] ACUTE ILLNESS 04/27/2010 Patient Education: Patient Medication Summary Completed 04/27/2010 Visit Plan: Saline nasal flushes prn. Ty lenol/Motrin prn headache. Notify if persists/symptoms worsening. Omnaris BID plus injections 04/05/2010 Appointment: María Elena Appiah WPtel: [address] [place] [address] ACUTE ILLNESS 04/05/2010 Patient Education: Patient Medication Summary Completed 04/05/2010 Visit Plan: Saline nasal flushes prn. Ty lenol/Motrin prn headache. Notify if persists/symptoms worsening. 03/09/2010 Appointment: María Elena Appiah WPtel: [address] [place] [address] ACUTE ILLNESS 03/09/2010 Patient Education: Patient Medication Summary Completed 03/09/2010 Visit Plan: Cont Clonidine as is Cont Pr emarin Fwup with surgery as scheduled 03/03/2010 Appointment: María Elena Appiah WPtel: [address] [place] [address] FOLLOW UP 03/03/2010 Patient Education: Patient Medication Summary Completed 03/03/2010 Visit Plan: Check Pelvic US now Discusse d Dand C vs Hysterectomy 01/17/2010 Appointment: María Elena Appiah WPtel: [phone] [id number] ACUTE ILLNESS 01/17/2010 Patient Education: Patient Medication Summary Completed 01/17/2010 Visit Plan: Check fasting lab and schedu le Mammogram 2gm Na Diet Trial of Ambien 10mg qhs Fwup pending lab results 12/27/2009 Appointment: María Elena Appiah WPtel: [phone] [id number] ESTABLISHED PATIENT 12/27/2009 Patient Education: Patient Medication Summary Completed 12/27/2009 Referral: Canelo Overton WPtel: [address] [id number] Referral Initiated Referral: Philipp Flores WPtel: [address] [id number] [place] Referral Appointment Requested Instructions Comment . [...] to rest and hydrate. Discussed stroke and MS symptoms. Pt. instructed to seek ER eval [...]
--- OUTSIDE RECORDS SUMMARY | 2020-03-13 05:41 | XMS REPORT | CCD ---
Author Author Gale Appiah D.O. 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 Role Phone María Elena Appiah D.O., PP Unavailable CCM Unavailable Summary Purpose Interface Exchange Insurance Providers Payer name Policy type / Coverage type Covered constitution party ID Effective Begin Date Effective End Date [facility] Commercial Insurance [id number] Unknown Family History Family History data not found Social History Social History Element Codes Description Effective Dates Tobacco history SNOMED CT: [id number] Never smoker 05/22/2011 Allergies, Adverse Reactions, Alerts [...] hydrocodone 10 mg-acetaminophen 325 mg tablet RxNorm: 829105 1-2 Tablet(s) Oral three times a day as needed for pain 11/10/2019 No Stop Date Active cyclobenzaprine 10 mg tablet RxNorm: 182151 TAKE ONE TA BLET BY MOUTH THREE TIMES A DAY NEEDED FOR MUSCLE SPASMS 10/23/2019 No Stop Date Active duloxetine 60 mg capsule,delayed release RxNorm: 823720 1 Capsu le(s) Oral QD 10/17/2019 04/13/2020 Active celecoxib 200 mg capsule RxNorm: 059777 1 Capsule(s) Or al two times a day as needed for pain 10/17/2019 01/14/2020 Active lisinopril 20 mg tablet RxNorm: 509459 1 Tablet(s) Oral QD 10/17/19 20 04/13/2020 Active gabapentin 300 mg capsule RxNorm: 473128 1 Capsule(s) O ral every night at bedtime 10/17/2019 01/15/2020 Active Singulair 10 mg tablet RxNorm: 396900 1 Tablet(s) Oral QD 10/17/2019 04/14/2020 Active Klor-Con 8 mEq tablet,extended release RxNorm: 345224 1 Tablet(s) Oral two times a day 10/17/2019 11/16/2019 Active metoprolol tartrate 100 mg tablet RxNorm: 239562 1 Tabl et(s) Oral two times a day 10/17/2019 04/13/2020 Active clonidine HCl 0.1 mg tablet RxNorm: 417988 1 Tablet(s) Oral fou r times a day 10/17/2019 04/13/2020 Active Januvia 100 mg tablet RxNorm: 610888 1 Tablet(s) Oral QD 10/17/2019 No Stop Date Active Lipitor 10 mg tablet RxNorm: 314535 1 Tablet(s) Oral QD 10/17/2019 Active Steglatro 15 mg tablet RxNorm: 6598826 1 Tablet(s) Oral QD 10/17/19 No Stop Date Active Glyxambi 25 mg-5 mg tablet RxNorm: 0156466 1 Tablet(s) Oral QD 01/202010/16/2019 Inactive Patient will bring in copay discount card as well Glyxambi 25 mg-5 mg tablet RxNorm: 5493008 1 Tablet(s) Oral QD 01/202010/14/2019 Inactive Patient will bring in copay discount card as well Keflex 500 mg capsule RxNorm: 800735 1 Capsule(s) Oral two time s a day 10/07/2019 10/14/2019 Inactive Premarin 1.25 mg tablet RxNorm: 093099 1 Tablet(s) Oral QD 09/30/1906/25/2020 Active hydrocodone 10 mg-acetaminophen 325 mg tablet RxNorm: 192005 1-2 Tablet(s) Oral three times a day as needed for pain 09/30/2019 09/30/2019 Inactive baclofen 10 mg tablet RxNorm: 459546 TAKE ONE TABLET BY MOUTH THREE TIMES A DAY NEEDED 09/19/2019 No Stop Date Active gabapentin 300 mg capsule RxNorm: 679536 TAKE ONE CAPSU LE BY MOUTH EVERY NIGHT AT BEDTIME 09/19/2019 10/16/2019 Inactive Klor-Con 8 mEq tablet,extended release RxNorm: 138094 T FARRUKH ONE TABLET BY MOUTH TWICE A DAY 1 Tablet(s) Oral two times a day 09/19/2019 10/16/2019 [place] [facility] hydrocodone 10 mg-acetaminophen 325 mg tablet RxNorm: 320097 1-2 Tablet(s) Oral three times a day as needed for pain 09/19/2019 09/29/2019 Inactive triamterene 75 mg-hydrochlorothiazide 50 mg tablet RxNorm: 3 75130 TAKE ONE TABLET BY MOUTH DAILY 09/11/2019 No Stop Date Active allopurinol 300 mg tablet RxNorm: 099907 TAKE ONE TABLET BY LOPEZ TH DAILY 09/11/2019 No Stop Date Active duloxetine 60 mg capsule,delayed release RxNorm: 095611 TAKE ONE CAPSULE BY MOUTH DAILY 09/11/2019 10/16/2019 Inactive Lipitor 10 mg tablet RxNorm: 813201 TAKE ONE TABLET BY MOUTH AT BEDTIME 09/11/2019 10/16/2019 Inactive lisinopril 20 mg tablet RxNorm: 295629 TAKE ONE TABLET BY MOUTH DAILY .... THIS REPLACE 10MG TABLETS 09/11/2019 10/16/2019 Inactive celecoxib 200 mg capsule RxNorm: 846379 TAKE ONE CAPSUL E BY MOUTH TWICE A DAY NEEDED FOR PAIN 09/11/2019 10/16/2019 Inactive clonidine HCl 0.1 mg tablet RxNorm: 870094 TAKE ONE TAB LET BY MOUTH FOUR TIMES A DAY 09/11/2019 10/16/2019 Inactive doxepin 25 mg capsule RxNorm: 3583235 1 Capsule(s) Oral every night at bedtime as needed for sleep 08/21/2019 11/18/2019 Active hydrocodone 10 mg-acetaminophen 325 mg tablet RxNorm: 882332 1-2 Tablet(s) PO TID 08/12/2019 09/29/2019 Inactive as needed for pa in - Previous quantity #240, will start dosing for #180 in April 2011 per Doctor Td. Medrol (Dustin) 4 mg tablets in a dose pack RxNorm: 269293 Tablet(s) Oral As Directed 07/21/2019 09/29/2019 Inactive Premarin 1.25 mg tablet RxNorm: 383493 1 Tablet(s) Oral QD 07/02/20 19 09/29/2019 Inactive hydrocodone 10 mg-acetaminophen 325 mg tablet RxNorm: 031043 1-2 Tablet(s) PO TID 07/01/2019 08/11/2019 Inactive as needed for pa in - Previous quantity #240, will start dosing for #180 in April 2011 per Doctor Td. gabapentin 300 mg capsule RxNorm: 396362 1 Capsule(s) PO QHS 201809/18/2019 Inactive celecoxib 200 mg capsule RxNorm: 766820 1 Capsule(s) Or al two times a day as needed for pain 06/27/2019 06/27/2019 Inactive furosemide 40 mg tablet RxNorm: 083660 TAKE ONE TABLET BY MOUTH EVERY MORNING NEEDED FOR EDEMA . TAKE WITH POTASSIUM 06/24/2019 No Stop Date Active doxepin 25 mg capsule RxNorm: 1879272 TAKE ONE CAPSULE B Y MOUTH EVERY NIGHT AT BEDTIME NEEDED FOR SLEEP 06/24/2019 08/20/2019 Inactive Singulair 10 mg tablet RxNorm: 879415 TAKE ONE TABLET BY MOUTH JOSÉ Y 06/24/2019 10/16/2019 Inactive lisinopril 20 mg tablet RxNorm: 769741 TAKE ONE TABLET BY MOUTH DAILY .... THIS REPLACE 10MG TABLETS 06/24/2019 09/10/2019 Inactive nystatin-triamcinolone 100,000 unit/g-0.1 % topical cream Rx Norm: 3936029 1 Application Topical two times a day 06/12/2019 06/19/2019 Inactive apply BID for 1 week nystatin-triamcinolone 100,000 unit/g-0.1 % topical cream Rx Norm: 1916964 1 Application Topical two times a day 06/12/2019 06/11/2019 Inactive apply BID for 1 week hydrocodone 10 mg-acetaminophen 325 mg tablet RxNorm: 092287 1-2 Tablet(s) PO QID as needed for pain MUST LAST 30 DAYS 05/28/2019 06/26/2019 Inactiv e (Response to an electronic controlled substance refill request - RxReferenceNumber: [id number]) baclofen 20 mg tablet RxNorm: 069901 1 Tablet(s) PO TID as needed for muscle spasm 05/19/2019 05/27/2019 Inactive gabapentin 300 mg capsule RxNorm: 104580 1 Capsule(s) PO QHS 201805/27/2019 Inactive lisinopril 20 mg tablet RxNorm: 402972 1 Tablet(s) PO Q D TAKE ONE TABLET BY MOUTH DAILY, REPLACES 10 MG DOSE 05/19/2019 06/23/2019 Inactive doxepin 25 mg capsule RxNorm: 5320361 TAKE ONE CAPSULE B Y MOUTH EVERY NIGHT AT BEDTIME NEEDED FOR SLEEP 05/16/2019 06/14/2019 Inactive lisinopril 20 mg tablet RxNorm: 570548 TAKE ONE TABLET BY MOUTH DAILY, REPLACES 10 MG DOSE 05/16/2019 05/18/2019 Inactive Singulair 10 mg tablet RxNorm: 769211 TAKE ONE TABLET BY MOUTH JOSÉ Y 05/16/2019 06/14/2019 Inactive gabapentin 300 mg capsule RxNorm: 466326 1 Capsule(s) PO QHS 201805/04/2019 Inactive estropipate 1.5 mg tablet RxNorm: 021638 1 Tablet(s) PO QD 05/05/2005/27/2019 Inactive estropipate 1.5 mg tablet RxNorm: 880352 1 Tablet(s) PO QD 05/05/20 19 05/04/2019 Inactive gabapentin 300 mg capsule RxNorm: 544076 1 Capsule(s) PO QHS 201805/18/2019 Inactive hydrocodone 10 mg-acetaminophen 325 mg tablet RxNorm: 426432 1-2 Tablet(s) PO QID as needed for pain MUST LAST 30 DAYS 04/25/2019 05/24/2019 Inactiv e (Response to an electronic controlled substance refill request - RxReferenceNumber: [id number]) cyclobenzaprine 10 mg tablet RxNorm: 504148 TAKE ONE TA BLET BY MOUTH THREE TIMES A DAY NEEDED FOR MUSCLE SPASMS 04/24/2019 05/18/2019 Inactive metoprolol tartrate 100 mg tablet RxNorm: 468808 TAKE O NE TABLET BY MOUTH TWICE A DAY 04/24/2019 10/16/2019 Inactive Lyrica 75 mg capsule RxNorm: 642913 1 Capsule(s) PO QHS 03/25/2019 Inactive duloxetine 60 mg capsule,delayed release RxNorm: 058000 TAKE ONE CAPSULE BY MOUTH DAILY 03/21/2019 05/19/2019 Inactive triamterene 75 mg-hydrochlorothiazide 50 mg tablet RxNorm: 3 58913 TAKE ONE TABLET BY MOUTH DAILY 03/21/2019 05/19/2019 Inactive Klor-Con 8 mEq tablet,extended release RxNorm: 687358 T FARRUKH ONE TABLET BY MOUTH TWICE A DAY 03/21/2019 09/18/2019 Inactive Lipitor 10 mg tablet RxNorm: 275694 TAKE ONE TABLET BY MOUTH AT BEDTIME 03/21/2019 09/10/2019 Inactive clonidine HCl 0.1 mg tablet RxNorm: 269054 TAKE ONE TAB LET BY MOUTH FOUR TIMES A DAY 03/21/2019 05/19/2019 Inactive allopurinol 300 mg tablet RxNorm: 066226 TAKE ONE TABLET BY LOPEZ TH DAILY 03/21/2019 05/19/2019 Inactive hydrocodone 10 mg-acetaminophen 325 mg tablet RxNorm: 079208 1-2 Tablet(s) PO QID as needed for pain MUST LAST 30 DAYS 02/28/2019 03/29/2019 Inactiv e (Response to an electronic controlled substance refill request - RxReferenceNumber: [id number]) furosemide 40 mg tablet RxNorm: 259298 TAKE ONE TABLET BY MOUTH EVERY MORNING NEEDED FOR EDEMA . TAKE WITH POTASSIUM 02/21/2019 03/22/2019 Inactive cyclobenzaprine 10 mg tablet RxNorm: 339910 TAKE ONE TA BLET BY MOUTH THREE TIMES A DAY NEEDED FOR MUSCLE SPASMS 02/21/2019 04/21/2019 Inactive lisinopril 20 mg tablet RxNorm: 625324 TAKE ONE TABLET BY MOUTH DAILY, REPLACES 10 MG DOSE 02/21/2019 05/15/2019 Inactive doxepin 25 mg capsule RxNorm: 7885405 TAKE ONE CAPSULE B Y MOUTH EVERY NIGHT AT BEDTIME NEEDED FOR SLEEP 02/21/2019 05/15/2019 Inactive nystatin 100,000 unit/gram topical cream RxNorm: 304014 APPLY TO AFFECTED AREA(S) TWO TIMES A DAY 02/21/2019 03/22/2019 Inactive estradiol 1 mg tablet RxNorm: 393628 2 Tablet(s) PO QD replaces premarin 01/22/2019 05/04/2019 Inactive lisinopril 20 mg tablet RxNorm: 594888 TAKE ONE TABLET BY MOUTH DAILY, REPLACES 10 MG DOSE 01/20/2019 02/18/2019 Inactive cyclobenzaprine 10 mg tablet RxNorm: 876343 TAKE ONE TA BLET BY MOUTH THREE TIMES A DAY NEEDED FOR MUSCLE SPASMS 01/20/2019 02/18/2019 Inactive metoprolol tartrate 100 mg tablet RxNorm: 216923 TAKE O NE TABLET BY MOUTH TWICE A DAY 01/20/2019 02/18/2019 Inactive cyclobenzaprine 10 mg tablet RxNorm: 102952 TAKE ONE TA BLET BY MOUTH THREE TIMES A DAY NEEDED FOR MUSCLE SPASMS 12/19/2018 01/17/2019 Inactive lisinopril 20 mg tablet RxNorm: 837523 TAKE ONE TABLET BY MOUTH DAILY, REPLACES 10 MG DOSE 12/19/2018 01/17/2019 Inactive duloxetine 60 mg capsule,delayed release RxNorm: 816637 TAKE ONE CAPSULE BY MOUTH DAILY 12/19/2018 01/17/2019 Inactive Lipitor 10 mg tablet RxNorm: 413647 TAKE ONE TABLET BY MOUTH AT BEDTIME 12/19/2018 01/17/2019 Inactive cyclobenzaprine 10 mg tablet RxNorm: 714376 1 Tablet(s) PO TID as needed for muscle spasm 11/19/2018 12/18/2018 Inactive Singulair 10 mg tablet RxNorm: 753228 1 Tablet(s) PO QD 11/19/2018 Inactive lisinopril 20 mg tablet RxNorm: 943497 TAKE ONE TABLET BY MOUTH DAILY, REPLACES 10 MG DOSE 11/15/2018 12/18/2018 Inactive hydrocodone 10 mg-acetaminophen 325 mg tablet RxNorm: 772739 1-2 Tablet(s) PO QID as needed for pain MUST LAST 30 DAYS 11/13/2018 12/12/2018 Inactiv e (Response to an electronic controlled substance refill request - RxReferenceNumber: [id number]) nystatin 100,000 unit/gram topical cream RxNorm: 499963 APPLY TO AFFECTED AREA(S) TWO TIMES A DAY 10/23/2018 11/06/2018 Inactive lisinopril 20 mg tablet RxNorm: 609424 1 Tablet(s) PO QD replac es 10mg dose 10/18/2018 11/14/2018 Inactive hydrocodone 10 mg-acetaminophen 325 mg tablet RxNorm: 648976 1-2 Tablet(s) QID as needed for pain MUST LAST 30 DAYS 10/08/2018 11/06/2018 Inactive (Response to an electronic controlled substance refill request - RxReferenceNumber: [id number]) lisinopril 10 mg tablet RxNorm: 904429 1 Tablet(s) PO QD 10/03/2018 0 01/21/2019 Inactive Celebrex 200 mg capsule RxNorm: 830421 TAKE ONE CAPSULE BY MOUT H TWICE A DAY 09/30/2018 05/04/2019 Inactive cyclobenzaprine 10 mg tablet RxNorm: 221289 TAKE ONE TA BLET BY MOUTH THREE TIMES A DAY NEEDED FOR MUSCLE SPASMS 09/30/2018 11/18/2018 Inactive doxepin 25 mg capsule RxNorm: 4880843 TAKE ONE CAPSULE B Y MOUTH EVERY NIGHT AT BEDTIME NEEDED 09/05/2018 10/16/2018 Inactive omeprazole 40 mg capsule,delayed release RxNorm: 659437 TAKE ONE CAPSULE BY MOUTH DAILY 09/05/2018 01/21/2019 Inactive furosemide 40 mg tablet RxNorm: 180409 TAKE ONE TABLET BY MOUTH EVERY MORNING NEEDED FOR EDEMA . TAKE WITH POTASSIUM 09/05/2018 11/03/2018 Inactive phentermine 37.5 mg tablet RxNorm: 904499 1 Tablet(s) PO QAM 201701/21/2019 Inactive doxepin 25 mg capsule RxNorm: 1933847 1 Capsule(s) PO QH S as needed for sleep TAKE ONE CAPSULE BY MOUTH EVERY NIGHT AT BEDTIME NEEDED 08/27/2018 09/04/2018 Inactive Keflex 500 mg capsule RxNorm: 531584 1 Capsule(s) PO TID 08/09/2018 1 10/19/2017 Inactive Diflucan 100 mg tablet RxNorm: 209383 1 Tablet(s) PO QD 08/09/2018 Inactive Premarin 1.25 mg tablet RxNorm: 896175 2 Tablet(s) PO QD 08/09/2018 0 05/04/2019 Inactive Zofran ODT 4 mg disintegrating tablet RxNorm: 880982 1 Tablet(s) PO Q4H as needed for nausea 08/09/2018 01/21/2019 Inactive metoprolol tartrate 100 mg tablet RxNorm: 365048 TAKE O NE TABLET BY MOUTH TWICE A DAY 2018 10/04/2018 Inactive doxepin 25 mg capsule RxNorm: 5431827 TAKE ONE CAPSULE B Y MOUTH EVERY NIGHT AT BEDTIME NEEDED 2018 08/26/2018 Inactive cyclobenzaprine 10 mg tablet RxNorm: 672178 TAKE ONE TA BLET BY MOUTH THREE TIMES A DAY NEEDED FOR MUSCLE SPASMS 2018 09/29/2018 Inactive hydrocodone 10 mg-acetaminophen 325 mg tablet RxNorm: 740001 1-2 Tablet(s) QID as needed for pain MUST LAST 30 DAYS 07/29/2018 08/27/2018 Inactive (Response to an electronic controlled substance refill request - RxReferenceNumber: [id number]) nystatin 100,000 unit/gram topical powder RxNorm: 397614 Applic ation TOP BID 07/22/2018 08/04/2018 Inactive doxepin 25 mg capsule RxNorm: 7264225 1 Capsule(s) PO QHS as needed 07/22/2018 08/05/2018 Inactive triamterene 75 mg-hydrochlorothiazide 50 mg tablet RxNorm: 3 49085 TAKE ONE TABLET BY MOUTH DAILY 07/05/2018 10/02/2018 Inactive duloxetine 60 mg capsule,delayed release RxNorm: 113360 TAKE ONE CAPSULE BY MOUTH DAILY 07/05/2018 09/02/2018 Inactive Klor-Con 8 mEq tablet,extended release RxNorm: 009854 T FARRUKH ONE TABLET BY MOUTH TWICE A DAY 07/05/2018 10/02/2018 Inactive Lipitor 10 mg tablet RxNorm: 392404 TAKE ONE TABLET BY MOUTH AT BEDTIME 07/05/2018 09/02/2018 Inactive allopurinol 300 mg tablet RxNorm: 777396 TAKE ONE TABLET BY LOPEZ TH DAILY 07/05/2018 10/02/2018 Inactive clonidine HCl 0.1 mg tablet RxNorm: 066228 TAKE ONE TAB LET BY MOUTH FOUR TIMES A DAY 07/05/2018 10/02/2018 Inactive hydrocodone 10 mg-acetaminophen 325 mg tablet RxNorm: 359729 1-2 Tablet(s) QID as needed for pain MUST LAST 30 DAYS 06/28/2018 07/27/2018 Inactive (Response to an electronic controlled substance refill request - RxReferenceNumber: [id number]) MediHoney (calcium alginate-honey) 4" X 5" bandage RxNorm: 1 Application TOP QD 06/17/2018 06/26/2018 Inactive honey-hydrocolloid dressing 4" X 5" RxNorm: 1 Application TOP QD 06/17/2018 07/16/2018 Inactive furosemide 40 mg tablet RxNorm: 579330 TAKE ONE TABLET BY MOUTH EVERY MORNING NEEDED FOR EDEMA . TAKE WITH POTASSIUM 06/10/2018 07/09/2018 Inactive This is a refill request. hydrocodone 10 mg-acetaminophen 325 mg tablet RxNorm: 673078 1-2 Tablet(s) QID as needed for pain MUST LAST 30 DAYS 05/30/2018 06/27/2018 Inactive (Response to an electronic controlled substance refill request - RxReferenceNumber: [id number]) acyclovir 800 mg tablet RxNorm: 008665 1 Tablet(s) PO 5x day 201705/22/2018 Inactive Premarin 1.25 mg tablet RxNorm: 143528 1-2 Tablet(s) PO QD 05/15/20 18 07/13/2018 Inactive cyclobenzaprine 10 mg tablet RxNorm: 804598 1 Tablet(s) PO TID as needed for muscle spasm 05/09/2018 05/08/2018 Inactive Medrol (Dustin) 4 mg tablets in a dose pack RxNorm: 851977 Tablet(s) PO As Directed 05/02/2018 06/16/2018 Inactive hydrocodone 10 mg-acetaminophen 325 mg tablet RxNorm: 013191 1-2 Tablet(s) QID as needed for pain MUST LAST 30 DAYS 04/30/2018 05/29/2018 Inactive (Response to an electronic controlled substance refill request - RxReferenceNumber: [id number]) duloxetine 60 mg capsule,delayed release RxNorm: 487000 TAKE ONE CAPSULE BY MOUTH DAILY 04/16/2018 05/15/2018 Inactive Celebrex 200 mg capsule RxNorm: 853207 TAKE ONE CAPSULE BY MOUT H TWICE A DAY 04/16/2018 06/14/2018 Inactive Singulair 10 mg tablet RxNorm: 624987 TAKE ONE TABLET BY MOUTH JOSÉ Y 04/16/2018 11/19/2018 Inactive Lipitor 10 mg tablet RxNorm: 415580 TAKE ONE TABLET BY MOUTH AT BEDTIME 04/16/2018 05/15/2018 Inactive hydrocodone 10 mg-acetaminophen 325 mg tablet RxNorm: 719932 1-2 Tablet(s) QID as needed for pain MUST LAST 30 DAYS 03/29/2018 04/27/2018 Inactive (Response to an electronic controlled substance refill request - RxReferenceNumber: [id number]) cyclobenzaprine 10 mg tablet RxNorm: 003050 1 Tablet(s) PO TID as needed for muscle spasm 03/18/2018 05/09/2018 Inactive omeprazole 40 mg capsule,delayed release RxNorm: 251552 1 Capsu le(s) PO QD 02/26/2018 08/24/2018 Inactive hydrocodone 10 mg-acetaminophen 325 mg tablet RxNorm: 693966 1-2 Tablet(s) QID as needed for pain MUST LAST 30 DAYS 02/26/2018 03/27/2018 Inactive (Response to an electronic controlled substance refill request - RxReferenceNumber: [id number]) metoprolol tartrate 100 mg tablet RxNorm: 488951 1 Tablet(s) PO BID 02/18/2018 08/05/2018 Inactive Lyrica 75 mg capsule RxNorm: 239402 1 Capsule(s) PO QHS 01/30/2018 Inactive phentermine 37.5 mg tablet RxNorm: 454484 1 Tablet(s) PO QAM 201706/16/2018 Inactive hydrocodone 10 mg-acetaminophen 325 mg tablet RxNorm: 734231 1-2 Tablet(s) QID as needed for pain MUST LAST 30 DAYS 01/29/2018 02/25/2018 Inactive (Response to an electronic controlled substance refill request - RxReferenceNumber: [id number]) Klor-Con 8 mEq tablet,extended release RxNorm: 271222 1 Tablet( s) PO BID 01/14/2018 07/04/2018 Inactive allopurinol 300 mg tablet RxNorm: 343085 1 Tablet(s) PO QD 01/15/20 18 07/04/2018 Inactive Lipitor 10 mg tablet RxNorm: 487540 1 Tablet(s) PO QHS 01/14/201812/2017 Inactive triamterene 75 mg-hydrochlorothiazide 50 mg tablet RxNorm: 3 96368 1 Tablet(s) PO QD 01/14/2018 07/04/2018 Inactive hydrocodone 10 mg-acetaminophen 325 mg tablet RxNorm: 825216 1-2 Tablet(s) QID as needed for pain MUST LAST 30 DAYS 12/27/2017 01/25/2018 Inactive (Response to an electronic controlled substance refill request - RxReferenceNumber: [id number]) Onglyza 5 mg tablet RxNorm: 852550 1 Tablet(s) PO QD 12/18/201701/29 Inactive metformin 500 mg tablet RxNorm: 277604 1 Tablet(s) PO BID 12/11/2017 12/10/2017 Inactive metformin 500 mg tablet RxNorm: 356335 1 Tablet(s) PO BID 12/11/2017 12/17/2017 Inactive furosemide 40 mg tablet RxNorm: 355921 1 Tablet(s) PO Q AM prn edema--take with potassium 12/11/2017 06/08/2018 Inactive cyclobenzaprine 10 mg tablet RxNorm: 895370 1 Tablet(s) PO TID as needed for muscle spasm 12/11/2017 03/18/2018 Inactive hydrocodone 10 mg-acetaminophen 325 mg tablet RxNorm: 329995 1-2 Tablet(s) QID as needed for pain MUST LAST 30 DAYS 10/23/2017 11/21/2017 Inactive (Response to an electronic controlled substance refill request - RxReferenceNumber: [id number]) Lipitor 10 mg tablet RxNorm: 769904 1 Tablet(s) PO QHS 10/16/201703/2018 Inactive cyclobenzaprine 10 mg tablet RxNorm: 888327 1 Tablet(s) PO TID as needed for muscle spasm 10/09/2017 12/10/2017 Inactive hydroxyzine HCl 25 mg tablet RxNorm: 694657 1 Tablet(s) PO BID as needed for anxiety 09/20/2017 01/29/2018 Inactive Effexor XR 75 mg capsule,extended release RxNorm: 378529 1 Caps ule(s) PO QD 09/20/2017 01/29/2018 Inactive metoprolol tartrate 100 mg tablet RxNorm: 786678 1 Tablet(s) PO BID 08/20/2017 02/18/2018 Inactive baclofen 20 mg tablet RxNorm: 907950 1 Tablet(s) PO TID as needed for muscle spasm 08/20/2017 01/21/2019 Inactive clonidine HCl 0.1 mg tablet RxNorm: 792918 1 Tablet(s) PO QID 08/2005/16/2018 Inactive Seroquel 25 mg tablet RxNorm: 567618 1 Tablet(s) PO QHS 08/17/2017 Inactive Seroquel 25 mg tablet RxNorm: 634877 1 Tablet(s) PO QHS 08/17/2017 Inactive Diflucan 100 mg tablet RxNorm: 710778 TAKE ONE TABLET BY MOUTH JOSÉ Y 07/25/2017 08/07/2017 Inactive hydrocodone 10 mg-acetaminophen 325 mg tablet RxNorm: 521742 1-2 Tablet(s) QID as needed for pain MUST LAST 30 DAYS 07/19/2017 08/17/2017 Inactive (Response to an electronic controlled substance refill request - RxReferenceNumber: [id number]) clindamycin 300 mg capsule RxNorm: 593803 1 Capsule(s) PO TID 07/1907/28/2017 Inactive clotrimazole-betamethasone 1 %-0.05 % topical cream RxNorm: 238662 Application TOP BID to elbow rash 07/19/2017 06/16/2018 Inactive Singulair 10 mg tablet RxNorm: 043031 Tablet(s) TAKE ONE TABLET BY MOUTH DAILY 07/18/2017 04/13/2018 Inactive triamterene 75 mg-hydrochlorothiazide 50 mg tablet RxNorm: 3 78067 1 Tablet(s) PO QD 07/18/2017 01/14/2018 Inactive Celebrex 200 mg capsule RxNorm: 796088 Capsule(s) TAKE ONE CAPSULE BY MOUTH TWICE A DAY 07/18/2017 10/15/2017 Inactive hydrocodone 10 mg-acetaminophen 325 mg tablet RxNorm: 832820 1-2 Tablet(s) QID as needed for pain MUST LAST 30 DAYS 06/19/2017 07/18/2017 Inactive (Response to an electronic controlled substance refill request - RxReferenceNumber: [id number]) hydrocodone 10 mg-acetaminophen 325 mg tablet RxNorm: 493040 1-2 Tablet(s) QID as needed for pain MUST LAST 30 DAYS 06/19/2017 06/18/2017 Inactive (Response to an electronic controlled substance refill request - RxReferenceNumber: [id number]) baclofen 20 mg tablet RxNorm: 109707 1 Tablet(s) PO TID as needed for muscle spasm 06/18/2017 08/20/2017 Inactive Medrol (Dustin) 4 mg tablets in a dose pack RxNorm: 169981 Tablet(s) PO As Directed 06/05/2017 07/18/2017 Inactive omeprazole 40 mg capsule,delayed release RxNorm: 645922 1 Capsu le(s) PO QD 04/20/2017 10/16/2017 Inactive Premarin 1.25 mg tablet RxNorm: 955617 1-2 Tablet(s) PO QD 04/11/20 17 05/15/2018 Inactive duloxetine 60 mg capsule,delayed release RxNorm: 136206 1 Capsu le(s) PO QD 04/11/2017 09/19/2017 Inactive furosemide 40 mg tablet RxNorm: 046530 1 Tablet(s) PO Q AM prn edema--take with potassium 04/11/2017 12/11/2017 Inactive Klor-Con 8 mEq tablet,extended release RxNorm: 833156 1 Tablet( s) PO BID 04/11/2017 01/14/2018 Inactive Lipitor 10 mg tablet RxNorm: 595857 1 Tablet(s) PO QHS 04/11/201702/2018 Inactive amlodipine 5 mg-benazepril 20 mg capsule RxNorm: 322279 1 Capsu le(s) PO QD 04/11/2017 01/29/2018 Inactive allopurinol 300 mg tablet RxNorm: 165545 1 Tablet(s) PO QD 04/11/20 17 01/14/2018 Inactive clonidine HCl 0.1 mg tablet RxNorm: 606786 1 Tablet(s) PO QID 04/0508/19/2017 Inactive baclofen 20 mg tablet RxNorm: 463566 1 Tablet(s) PO TID as needed for muscle spasm 04/02/2017 06/18/2017 Inactive Premarin 1.25 mg tablet RxNorm: 044849 1-2 Tablet(s) PO QD 03/20/20 17 04/10/2017 Inactive hydrocodone 10 mg-acetaminophen 325 mg tablet RxNorm: 463601 1-2 Tablet(s) QID as needed for pain MUST LAST 30 DAYS 03/14/2017 01/21/2019 Inactive (Response to an electronic controlled substance refill request - RxReferenceNumber: [id number]) metoprolol tartrate 100 mg tablet RxNorm: 679435 1 Tablet(s) PO BID 02/12/2017 08/20/2017 Inactive hydrocodone 10 mg-acetaminophen 325 mg tablet RxNorm: 710971 1-2 Tablet(s) QID as needed for pain MUST LAST 30 DAYS 02/08/2017 03/09/2017 Inactive (Response to an electronic controlled substance refill request - RxReferenceNumber: [id number]) metoprolol tartrate 100 mg tablet RxNorm: 500895 TAKE O NE TABLET BY MOUTH TWICE A DAY 01/11/2017 02/12/2017 Inactive metoprolol tartrate 100 mg tablet RxNorm: 003503 1 Tablet(s) PO BID 12/18/2016 12/17/2016 Inactive metoprolol tartrate 100 mg tablet RxNorm: 096341 1 Tablet(s) PO BID 12/18/2016 01/10/2017 Inactive furosemide 40 mg tablet RxNorm: 739557 1 Tablet(s) PO Q AM prn edema--take with potassium 12/13/2016 02/10/2017 Inactive amitriptyline 100 mg tablet RxNorm: 235422 1 Tablet(s) PO QHS 11/2812/12/2016 Inactive baclofen 20 mg tablet RxNorm: 298436 1 Tablet(s) PO TID as needed for muscle spasm 11/14/2016 04/01/2017 Inactive triamterene 75 mg-hydrochlorothiazide 50 mg tablet RxNorm: 3 50903 1 Tablet(s) PO QD 11/14/2016 11/13/2016 Inactive metolazone 2.5 mg tablet RxNorm: 484181 TAKE ONE TABLET BY MOUTH DAILY NEEDED FOR EDEMA 11/14/2016 12/12/2016 Inactive triamterene 75 mg-hydrochlorothiazide 50 mg tablet RxNorm: 3 57335 1 Tablet(s) PO QD 11/14/2016 07/18/2017 Inactive amitriptyline 50 mg tablet RxNorm: 514968 TAKE ONE TABL ET BY MOUTH AT BEDTIME NEEDED FOR SLEEP 11/14/2016 11/27/2016 Inactive Cymbalta 60 mg capsule,delayed release RxNorm: 922081 1 Capsule (s) PO QHS 11/14/2016 12/12/2016 Inactive clonidine HCl 0.1 mg tablet RxNorm: 308814 1 Tablet(s) PO QID 11/1304/04/2017 Inactive amitriptyline 50 mg tablet RxNorm: 285991 1 Tablet(s) P O QHS as needed for sleep 11/01/2016 11/27/2016 Inactive duloxetine 60 mg capsule,delayed release RxNorm: 776490 TAKE ONE CAPSULE BY MOUTH DAILY 10/20/2016 01/17/2017 Inactive allopurinol 300 mg tablet RxNorm: 698652 TAKE ONE TABLET BY LOPEZ TH DAILY 10/20/2016 01/16/2017 Inactive Lyrica 75 mg capsule RxNorm: 610286 TAKE ONE CAPSULE BY MOUTH EVERY NIGHT AT BEDTIME 10/20/2016 12/10/2016 Inactive Klor-Con 8 mEq tablet,extended release RxNorm: 206080 T FARRUKH ONE TABLET BY MOUTH TWICE A DAY 10/20/2016 01/17/2017 Inactive Celebrex 200 mg capsule RxNorm: 555402 TAKE ONE CAPSULE BY MOUT H TWICE A DAY 10/20/2016 07/18/2017 Inactive Bystolic 10 mg tablet RxNorm: 447539 TAKE ONE TABLET BY MOUTH EVERY NIGHT AT BEDTIME 10/20/2016 12/17/2016 Inactive amlodipine 5 mg-benazepril 20 mg capsule RxNorm: 960342 TAKE ONE CAPSULE BY MOUTH EVERY NIGHT AT BEDTIME -- TO REPLACE AMLODOPINE 10/20/20162016 Inactive Lipitor 10 mg tablet RxNorm: 987307 TAKE ONE TABLET BY MOUTH EVERY NIGHT AT BEDTIME 10/20/2016 01/17/2017 Inactive alprazolam 0.5 mg tablet RxNorm: 469392 3 Tablet(s) PO QHS as needed for sleep/anxiety 09/20/2016 10/31/2016 Inactive Tamiflu 75 mg capsule RxNorm: 226948 1 Capsule(s) PO QD 09/19/2016 Inactive Lyrica 75 mg capsule RxNorm: 474104 1 Capsule(s) PO QHS 09/19/2016 Inactive prednisone 20 mg tablet RxNorm: 946451 1 Tablet(s) PO QD 08/10/2016 1 10/17/2015 Inactive doxycycline hyclate 100 mg capsule RxNorm: 0323963 1 Capsule(s) PO BID 08/10/2016 08/19/2016 Inactive Medrol (Dustin) 4 mg tablets in a dose pack RxNorm: 103163 Tablet(s) PO As Directed 07/31/2016 08/22/2016 Inactive Singulair 10 mg tablet RxNorm: 624203 TAKE ONE TABLET BY MOUTH JOSÉ Y 07/27/2016 07/18/2017 Inactive hydrocodone 10 mg-acetaminophen 325 mg tablet RxNorm: 919797 1-2 Tablet(s) QID as needed for pain MUST LAST 30 DAYS 07/26/2016 08/24/2016 Inactive (Response to an electronic controlled substance refill request - [facility] [id number]) alprazolam 0.5 mg tablet RxNorm: 424084 3 Tablet(s) PO QHS as needed for anxiety or sleep 07/26/2016 09/20/2016 Inactive clindamycin 300 mg capsule RxNorm: 352961 1 Capsule(s) PO TID 07/2007/29/2016 Inactive Diflucan 100 mg tablet RxNorm: 789905 1 Tablet(s) PO QD 07/20/2016 Inactive Levaquin 500 mg tablet RxNorm: 541625 1 Tablet(s) PO QD 07/17/2016 Inactive Levaquin 500 mg tablet RxNorm: 088277 1 Tablet(s) PO QD 07/10/2016 Inactive Levaquin 500 mg tablet RxNorm: 431952 1 Tablet(s) PO QD 07/10/2016 Inactive mupirocin 2 % topical ointment RxNorm: 462614 TOP Apply topically to affected areas twice daily 07/06/2016 09/18/2016 Inactive Singulair 10 mg tablet RxNorm: 263072 TAKE ONE TABLET BY MOUTH JOSÉ Y 06/21/2016 01/21/2019 Inactive alprazolam 0.5 mg tablet RxNorm: 737687 TAKE THREE TABL ETS BY MOUTH AT BEDTIME NEEDED FOR SLEEP OR STRESS 05/22/2016 06/20/2016 Inactive triamterene 75 mg-hydrochlorothiazide 50 mg tablet RxNorm: 3 93076 1 Tablet(s) PO QD 04/26/2016 10/21/2016 Inactive Premarin 1.25 mg tablet RxNorm: 451428 1-2 Tablet(s) PO QD 04/26/20 16 03/20/2017 Inactive Klor-Con 8 mEq tablet,extended release RxNorm: 127310 1 Tablet( s) PO BID 04/26/2016 10/19/2016 Inactive Celebrex 200 mg capsule RxNorm: 569056 1 Capsule(s) PO BID TAKE ONE CAPSULE BY MOUTH EVERY DAY 04/26/2016 10/19/2016 Inactive Lipitor 10 mg tablet RxNorm: 933562 1 Tablet(s) PO QHS 04/26/201605/2017 Inactive allopurinol 300 mg tablet RxNorm: 538943 1 Tablet(s) PO QD TAKE ONE TABLET BY MOUTH EVERY DAY 04/26/2016 10/19/2016 Inactive amlodipine 5 mg-benazepril 20 mg capsule RxNorm: 342747 1 Capsule(s) PO QHS replaces amlodopine 04/26/2016 10/19/2016 Inactive duloxetine 60 mg capsule,delayed release RxNorm: 361892 1 Capsu le(s) PO QD 04/26/2016 10/19/2016 Inactive Bystolic 10 mg tablet RxNorm: 422961 1 Tablet(s) PO QHS 04/26/2016 Inactive Singulair 10 mg tablet RxNorm: 883959 1 Tablet(s) PO QD TAKE ONE TABLET BY MOUTH DAILY 04/26/2016 06/20/2016 Inactive clonidine HCl 0.1 mg tablet RxNorm: 351986 1 Tablet(s) PO QID 04/2610/22/2016 Inactive hydrocodone 10 mg-acetaminophen 325 mg tablet RxNorm: 236137 1-2 Tablet(s) QID as needed for pain TAKE ONE TO TWO TABLETS BY MOUTH FOUR TIMES A DAY . MUST LAST 30 DAYS 03/31/2016 04/29/2016 Inactive (Response to an electronic controlled substance refill request - RxReferenceNumber: [id number]) Klor-Con 8 mEq tablet,extended release RxNorm: 408812 T FARRUKH ONE TABLET BY MOUTH TWICE A DAY 03/24/2016 09/29/2019 Inactive prednisone 20 mg tablet RxNorm: 120636 1 Tablet(s) PO QD 03/09/2016 0 03/08/2016 Inactive prednisone 20 mg tablet RxNorm: 284297 1 Tablet(s) PO QD 03/09/2016 0 03/13/2016 Inactive alprazolam 0.5 mg tablet RxNorm: 746842 3 Tablet(s) PO QHS as needed for sleep/stress 03/02/2016 01/21/2019 Inactive mupirocin 2 % topical ointment RxNorm: 062697 TOP twice daily to affected areas of face and neck 02/21/2016 04/25/2016 Inactive clonidine HCl 0.1 mg tablet RxNorm: 545862 TAKE ONE TAB LET BY MOUTH FOUR TIMES A DAY 02/15/2016 09/29/2019 Inactive clonidine HCl 0.1 mg tablet RxNorm: 870479 1 Tablet(s) PO QID 02/1404/25/2016 Inactive Premarin 1.25 mg tablet RxNorm: 282706 1-2 Tablet(s) PO QD 02/15/20 16 03/15/2016 Inactive Klor-Con 8 mEq tablet,extended release RxNorm: 292039 T FARRUKH ONE TABLET BY MOUTH TWICE A DAY 02/15/2016 03/15/2016 Inactive potassium chloride ER 20 mEq tablet,extended release(part/cr yst) RxNorm: 197494 2 Tablet(s) PO BID 02/15/2016 03/15/2016 Inactive Macrobid 100 mg capsule RxNorm: 357636 1 Capsule(s) PO BID 01/24/20 16 01/30/2016 Inactive prednisone 20 mg tablet RxNorm: 046647 Take 3tabs PO QD x 2 days, then 2 tabs PO QD x 2 days, then 1 tab PO QD x 2 days, then 1/2 tab PO QDy x 2 days 12/23/2015 04/25/2016 Inactive Klor-Con 8 mEq tablet,extended release RxNorm: 915370 T FARRUKH ONE TABLET BY MOUTH TWICE A DAY 12/20/2015 02/14/2016 Inactive alprazolam 1 mg tablet RxNorm: 336791 1 1/2 Tablet(s) PO QHS 201501/23/2016 Inactive nystatin 100,000 unit/gram topical cream RxNorm: 240267 APPLY TO AFFECTED AREA(S) TWO TIMES A DAY 11/30/2015 12/14/2015 Inactive Singulair 10 mg tablet RxNorm: 293610 TAKE ONE TABLET BY MOUTH JOSÉ Y 11/18/2015 04/25/2016 Inactive allopurinol 300 mg tablet RxNorm: 391671 1 Tablet(s) PO QD TAKE ONE TABLET BY MOUTH EVERY DAY 10/26/2015 04/22/2016 Inactive Singulair 10 mg tablet RxNorm: 294377 TAKE ONE TABLET BY MOUTH JOSÉ Y 10/26/2015 11/17/2015 Inactive duloxetine 60 mg capsule,delayed release RxNorm: 983332 1 Capsu le(s) PO QD 10/26/2015 04/22/2016 Inactive triamterene 75 mg-hydrochlorothiazide 50 mg tablet RxNorm: 3 86774 1 Tablet(s) PO QD 10/26/2015 11/14/2016 Inactive potassium chloride ER 20 mEq tablet,extended release(part/cr yst) RxNorm: 739560 2 Tablet(s) PO BID 10/26/2015 02/14/2016 Inactive Lipitor 10 mg tablet RxNorm: 445726 1 Tablet(s) PO QHS 10/26/2015 Inactive amlodipine 5 mg-benazepril 20 mg capsule RxNorm: 007341 1 Capsule(s) PO QHS replaces amlodopine 10/26/2015 04/22/2016 Inactive Bystolic 10 mg tablet RxNorm: 402260 1 Tablet(s) PO QHS 10/26/2015 Inactive amlodipine 5 mg-benazepril 20 mg capsule RxNorm: 745673 1 Capsule(s) PO QHS replaces amlodopine 10/06/2015 10/25/2015 Inactive amlodipine 5 mg tablet RxNorm: 477294 1 Tablet(s) PO QHS 09/30/2015 0 04/25/2016 Inactive metolazone 2.5 mg tablet RxNorm: 216248 TAKE ONE TABLET BY MOUTH DAILY NEEDED FOR EDEMA 09/30/2015 01/21/2019 Inactive duloxetine 60 mg capsule,delayed release RxNorm: 785324 1 Capsu le(s) PO QD 09/30/2015 10/25/2015 Inactive cephalexin 500 mg capsule RxNorm: 915867 1 Capsule(s) PO BID 201509/23/2015 Inactive mupirocin 2 % topical ointment RxNorm: 613803 TOP twice daily to affected areas of face and neck 09/14/2015 02/20/2016 Inactive baclofen 20 mg tablet RxNorm: 676514 1 Tablet(s) PO TID as needed for muscle spasm 09/01/2015 11/14/2016 Inactive clonidine HCl 0.1 mg tablet RxNorm: 438800 1 Tablet(s) PO QID 09/0102/14/2016 Inactive alprazolam 1 mg tablet RxNorm: 869324 1 1/2 Tablet(s) PO QHS 201409/09/2015 Inactive baclofen 20 mg tablet RxNorm: 612150 1 Tablet(s) PO TID as needed for muscle spasm 07/23/2015 09/01/2015 Inactive omeprazole 40 mg capsule,delayed release RxNorm: 012891 1 Capsu le(s) PO QD 07/23/2015 04/25/2016 Inactive alprazolam 1 mg tablet RxNorm: 927936 1 1/2 Tablet(s) PO QHS 201408/10/2015 Inactive Bystolic 10 mg tablet RxNorm: 898711 1 Tablet(s) PO BID 06/24/2015 Inactive allopurinol 300 mg tablet RxNorm: 225902 1 Tablet(s) PO QD TAKE ONE TABLET BY MOUTH EVERY DAY 06/23/2015 10/20/2015 Inactive alprazolam 1 mg tablet RxNorm: 415923 1 1/2 Tablet(s) PO QHS 201407/06/2015 Inactive clonidine HCl 0.1 mg tablet RxNorm: 061877 1 Tablet(s) PO QID 06/0209/01/2015 Inactive clonidine HCl 0.1 mg tablet RxNorm: 685425 1 Tablet(s) PO QID 06/0206/01/2015 Inactive Cymbalta 60 mg capsule,delayed release RxNorm: 275478 1 Capsule (s) PO QHS 06/02/2015 08/30/2015 Inactive Cymbalta 60 mg capsule,delayed release RxNorm: 433485 1 Capsule (s) PO QHS 06/02/2015 06/01/2015 Inactive clonidine HCl 0.1 mg tablet RxNorm: 934553 1 Tablet(s) PO TID 05/3106/01/2015 Inactive replaces 0.2mg dose metolazone 2.5 mg tablet RxNorm: 401963 TAKE ONE TABLET BY MOUTH DAILY NEEDED FOR EDEMA 05/21/2015 06/19/2015 Inactive Singulair 10 mg tablet RxNorm: 926889 TAKE ONE TABLET BY MOUTH JOSÉ Y 05/21/2015 10/17/2015 Inactive Cymbalta 30 mg capsule,delayed release RxNorm: 639020 1 Capsule (s) PO QHS 05/20/2015 11/14/2016 Inactive betamethasone valerate 0.1 % topical cream RxNorm: 408419 Appli cation TOP BID 05/10/2015 04/25/2016 Inactive Bactroban 2 % topical ointment RxNorm: 330785 Application TOP BID 0 05/10/2015 06/20/2015 Inactive baclofen 20 mg tablet RxNorm: 265418 1 Tablet(s) PO TID as needed 0 04/26/2015 07/23/2015 Inactive Lipitor 10 mg tablet RxNorm: 083979 1 Tablet(s) PO QHS 04/26/201508/2016 Inactive clonidine HCl 0.1 mg tablet RxNorm: 567766 1 Tablet(s) PO TID 04/2605/30/2015 Inactive replaces 0.2mg dose Klor-Con 8 mEq tablet,extended release RxNorm: 097897 1 Tablet( s) PO BID 04/26/2015 04/25/2016 Inactive metolazone 2.5 mg tablet RxNorm: 456543 1 Tablet(s) PO QD as ne eded for edema 04/26/2015 04/25/2015 Inactive triamterene 75 mg-hydrochlorothiazide 50 mg tablet RxNorm: 3 52495 1 Tablet(s) PO QD 04/26/2015 10/22/2015 Inactive Premarin 1.25 mg tablet RxNorm: 508634 1-2 Tablet(s) PO QD 04/26/20 15 10/22/2015 Inactive Bystolic 10 mg tablet RxNorm: 429582 1 Tablet(s) PO QAM TAKE ONE TABLET BY MOUTH EVERY MORNING 04/23/2015 06/23/2015 Inactive clonidine HCl 0.1 mg tablet RxNorm: 846771 1 Tablet(s) PO TID 03/2304/25/2015 Inactive replaces 0.2mg dose nystatin 100,000 unit/gram topical cream RxNorm: 868471 Applica tion TOP BID 03/23/2015 06/20/2015 Inactive baclofen 20 mg tablet RxNorm: 485784 1 Tablet(s) PO TID as needed 0 03/23/2015 04/25/2015 Inactive Premarin 1.25 mg tablet RxNorm: 875969 1-2 Tablet(s) PO QD 03/23/20 15 04/25/2015 Inactive Klor-Con 8 mEq tablet,extended release RxNorm: 487138 1 Tablet( s) PO BID 03/23/2015 04/25/2015 Inactive cefdinir 300 mg capsule RxNorm: 334595 2 Capsule(s) PO QD 03/16/2015 03/25/2015 Inactive baclofen 20 mg tablet RxNorm: 829261 1 Tablet(s) PO TID as needed 0 03/02/2015 03/22/2015 Inactive allopurinol 300 mg tablet RxNorm: 840801 1 Tablet(s) PO QD TAKE ONE TABLET BY MOUTH EVERY DAY 02/22/2015 05/22/2015 Inactive Klor-Con M20 mEq tablet,extended release RxNorm: 886732 2 Tablet(s) PO BID to use with lasix 02/22/2015 06/20/2015 Inactive clonidine HCl 0.1 mg tablet RxNorm: 314788 1 Tablet(s) PO TID 02/1903/22/2015 Inactive replaces 0.2mg dose Lipitor 10 mg tablet RxNorm: 199353 1 Tablet(s) PO QHS 01/20/201506/2015 Inactive Lipitor 10 mg tablet RxNorm: 648770 1 Tablet(s) PO QHS 01/20/2015 Inactive Singulair 10 mg tablet RxNorm: 539639 1 Tablet(s) PO QD TAKE ONE TABLET BY MOUTH EVERY DAY 11/20/2014 05/18/2015 Inactive Lipitor 10 mg tablet RxNorm: 503151 1 Tablet(s) PO QHS 11/20/201408/2015 Inactive allopurinol 300 mg tablet RxNorm: 377516 1 Tablet(s) PO QD TAKE ONE TABLET BY MOUTH EVERY DAY 11/20/2014 02/16/2015 Inactive Bystolic 10 mg tablet RxNorm: 274332 1 Tablet(s) PO QAM TAKE ONE TABLET BY MOUTH EVERY MORNING 11/20/2014 04/22/2015 Inactive Klor-Con 8 mEq tablet,extended release RxNorm: 456840 1 Tablet( s) PO BID 11/20/2014 02/17/2015 Inactive baclofen 20 mg tablet RxNorm: 991023 1 Tablet(s) PO TID as needed 0 11/20/2014 01/21/2019 Inactive baclofen 20 mg tablet RxNorm: 208152 1 Tablet(s) PO TID as needed 0 10/27/2014 11/19/2014 Inactive baclofen 20 mg tablet RxNorm: 331174 1 Tablet(s) PO TID as needed 0 10/26/2014 03/01/2015 Inactive allopurinol 300 mg tablet RxNorm: 096626 1 Tablet(s) PO QD TAKE ONE TABLET BY MOUTH EVERY DAY 10/26/2014 11/20/2014 Inactive Bystolic 10 mg tablet RxNorm: 585035 1 Tablet(s) PO QAM TAKE ONE TABLET BY MOUTH EVERY MORNING 10/26/2014 11/20/2014 Inactive clonidine HCl 0.1 mg tablet RxNorm: 641272 1 Tablet(s) PO TID 09/2805/27/2019 Inactive replaces 0.2mg dose clonidine HCl 0.1 mg tablet RxNorm: 608711 1 Tablet(s) PO TID 09/2802/18/2015 Inactive replaces 0.2mg dose baclofen 20 mg tablet RxNorm: 986312 1 Tablet(s) PO TID as needed 1 11/01/2013 08/30/2014 Inactive Lipitor 10 mg tablet RxNorm: 757395 1 Tablet(s) PO QHS 08/31/2014 Inactive baclofen 20 mg tablet RxNorm: 866674 1 Tablet(s) PO TID as needed 1 11/01/2013 10/26/2014 Inactive triamterene 75 mg-hydrochlorothiazide 50 mg tablet RxNorm: 3 19204 1 Tablet(s) PO QD 08/31/2014 02/26/2015 Inactive Klor-Con 8 mEq tablet,extended release RxNorm: 295999 1 Tablet( s) PO BID 08/31/2014 11/20/2014 Inactive baclofen 20 mg tablet RxNorm: 754367 1 Tablet(s) PO TID as needed 1 09/30/2013 10/25/2014 Inactive baclofen 20 mg tablet RxNorm: 073906 1 Tablet(s) PO TID as needed 1 09/30/2013 08/31/2014 Inactive omeprazole 40 mg capsule,delayed release RxNorm: 632825 1 Capsu le(s) PO QD 07/21/2014 07/23/2015 Inactive Flonase 50 mcg/actuation nasal spray,suspension RxNorm: 8963 23 1 [place] NASAL BID 07/15/2014 04/09/2017 Inactive hydrocodone 10 mg-acetaminophen 325 mg tablet RxNorm: 883412 1-2 Tablet(s) QID as needed for pain TAKE ONE TO TWO TABLETS BY MOUTH FOUR TIMES A DAY . MUST LAST 30 DAYS 06/30/2014 07/27/2014 Inactive (Response to an electronic controlled substance refill request - [facility] [id number]) baclofen 20 mg tablet RxNorm: 727118 1 Tablet(s) PO TID as needed 1 07/31/2014 Inactive Singulair 10 mg tablet RxNorm: 202237 1 Tablet(s) PO QD TAKE ONE TABLET BY MOUTH EVERY DAY 05/25/2014 11/20/2014 Inactive Bystolic 10 mg tablet RxNorm: 864723 TAKE ONE TABLET BY MOUTH E VERY MORNING 05/25/2014 09/21/2014 Inactive allopurinol 300 mg tablet RxNorm: 254239 1 Tablet(s) PO QD TAKE ONE TABLET BY MOUTH EVERY DAY 05/25/2014 10/21/2014 Inactive baclofen 20 mg tablet RxNorm: 364419 1 Tablet(s) PO TID as needed 0 05/25/2014 06/29/2014 Inactive allopurinol 300 mg tablet RxNorm: 916400 TAKE ONE TABLET BY LOPEZ TH EVERY DAY 05/25/2014 09/21/2014 Inactive Singulair 10 mg tablet RxNorm: 436221 1 Tablet(s) PO QD TAKE ONE TABLET BY MOUTH EVERY DAY 05/25/2014 05/24/2014 Inactive Bystolic 10 mg tablet RxNorm: 305473 1 Tablet(s) PO QAM TAKE ONE TABLET BY MOUTH EVERY MORNING 05/25/2014 10/21/2014 Inactive metolazone 2.5 mg tablet RxNorm: 468003 1 Tablet(s) PO QD as ne eded for edema 05/18/2014 04/25/2015 Inactive Lasix 40 mg tablet RxNorm: 924444 1 Tablet(s) PO QAM s hould take potassium supplementation with this medication 05/14/2014 05/17/2014 Inactive hydrocodone 10 mg-acetaminophen 325 mg tablet RxNorm: 439334 1-2 Tablet(s) QID as needed for pain TAKE ONE TO TWO TABLETS BY MOUTH FOUR TIMES A DAY . MUST LAST 30 DAYS 05/07/2014 06/05/2014 Inactive (Response to an electronic controlled substance refill request - RxReferenceNumber: [id number]) alprazolam 0.5 mg tablet RxNorm: 569258 TAKE ONE TABLET BY MOUTH TWICE A DAY , MUST LAST 30 DAYS 05/07/2014 05/22/2016 Inactive (Response to a n electronic controlled substance refill request - RxReferenceNumber: [id number]) diclofenac sodium 75 mg tablet,delayed release RxNorm: 72446 6 1 Tablet(s) PO BID for pain 04/24/2014 07/20/2014 Inactive Celebrex 200 mg capsule RxNorm: 328609 TAKE ONE CAPSULE BY MOUT H EVERY DAY 04/24/2014 07/20/2014 Inactive alprazolam 0.5 mg tablet RxNorm: 525837 TAKE ONE TABLET BY MOUTH TWICE A DAY , MUST LAST 30 DAYS 03/24/2014 04/22/2014 Inactive (Response to a n electronic controlled substance refill request - RxReferenceNumber: [id number]) diclofenac sodium 75 mg tablet,delayed release RxNorm: 20443 6 1 Tablet(s) PO BID for pain 03/24/2014 04/24/2014 Inactive clonidine HCl 0.1 mg tablet RxNorm: 819465 1 Tablet(s) PO TID 03/2409/28/2014 Inactive replaces 0.2mg dose Klor-Con 8 mEq tablet,extended release RxNorm: 130623 1 Tablet( s) PO BID 02/26/2014 08/31/2014 Inactive diclofenac sodium 75 mg tablet,delayed release RxNorm: 67875 6 1 Tablet(s) PO BID for pain 02/25/2014 03/24/2014 Inactive hydrocodone 10 mg-acetaminophen 325 mg tablet RxNorm: 247409 1-2 Tablet(s) QID as needed for pain TAKE ONE TO TWO TABLETS BY MOUTH FOUR TIMES A DAY . MUST LAST 30 DAYS 02/25/2014 03/26/2014 Inactive (Response to an electronic controlled substance refill request - RxReferenceNumber: [id number]) alprazolam 0.5 mg tablet RxNorm: 094172 Tablet(s) PO BI D as needed for anxiety TAKE ONE TABLET BY MOUTH TWICE A DAY , MUST LAST 30 DAYS 02/25/2014 Inactive (Response to an electronic controlled [place] bstance refill request - RxReferenceNumber: [id number]) [AttnRPh: Saving apply/adjudicate RxGRP:SG20 RxBIN:[id number] RxPCN: ID#:[id number]] alprazolam 0.5 mg tablet RxNorm: 445981 Tablet(s) TAKE ONE TABLET BY MOUTH TWICE A DAY , MUST LAST 30 DAYS 01/27/2014 02/24/2014 Inactive (Respo nse to an electronic controlled substance refill request - RxReferenceNumber: [id number]) [AttnRPh: Saving apply/adjudicate RxGRP:SG20 RxBIN:[id number] RxPCN: ID#:[id number]] hydrocodone 10 mg-acetaminophen 325 mg tablet RxNorm: 805027 1-2 Tablet(s) QID as needed for pain TAKE ONE TO TWO TABLETS BY MOUTH FOUR TIMES A DAY . MUST LAST 30 DAYS 01/27/2014 02/24/2014 Inactive (Response to an electronic controlled substance refill request - RxReferenceNumber: [id number]) alprazolam 0.5 mg tablet RxNorm: 719648 TAKE ONE TABLET BY MOUTH TWICE A DAY , MUST LAST 30 DAYS 01/27/2014 01/26/2014 Inactive (Response to a n electronic controlled substance refill request - RxReferenceNumber: [id number]) Premarin 1.25 mg tablet RxNorm: 523078 1-2 Tablet(s) PO QD 01/28/20 14 07/25/2014 Inactive alprazolam 0.5 mg tablet RxNorm: 046137 TAKE ONE TABLET BY MOUTH TWICE A DAY , MUST LAST 30 DAYS 01/27/2014 01/27/2014 Inactive (Response to a n electronic controlled substance refill request - RxReferenceNumber: [id number]) hydrocodone 10 mg-acetaminophen 325 mg tablet RxNorm: 300627 TAKE ONE TO TWO TABLETS BY MOUTH FOUR TIMES A DAY . MUST LAST 30 DAYS 01/27/20142013 Inactive (Response to an electronic controlled [place] bstance refill request - RxReferenceNumber: [id number]) Celebrex 200 mg capsule RxNorm: 677779 1 Capsule(s) PO QD TAKE ONE CAPSULE BY MOUTH EVERY DAY 12/29/2013 04/27/2014 Inactive hydrocodone 10 mg-acetaminophen 325 mg tablet RxNorm: 011551 1-2 Tablet(s) PO QID as needed for severe pain 12/29/2013 01/27/2014 Inactive allopurinol 300 mg tablet RxNorm: 906285 1 Tablet(s) PO QD TAKE ONE TABLET BY MOUTH EVERY DAY 12/29/2013 05/24/2014 Inactive alprazolam 0.5 mg tablet RxNorm: 568179 TAKE ONE TABLET BY MOUTH TWICE A DAY , MUST LAST 30 DAYS 12/29/2013 01/27/2014 Inactive (Response to a n electronic controlled substance refill request - RxReferenceNumber: [id number]) Celebrex 200 mg capsule RxNorm: 357438 1 Capsule(s) PO QD TAKE ONE CAPSULE BY MOUTH EVERY DAY 12/29/2013 12/29/2013 Inactive Bystolic 10 mg tablet RxNorm: 400841 1 Tablet(s) PO QAM TAKE ONE TABLET BY MOUTH EVERY MORNING 12/29/2013 05/24/2014 Inactive Bystolic 10 mg tablet RxNorm: 129017 1 Tablet(s) PO QAM TAKE ONE TABLET BY MOUTH EVERY MORNING 12/29/2013 12/29/2013 Inactive Singulair 10 mg tablet RxNorm: 318545 1 Tablet(s) PO QD TAKE ONE TABLET BY MOUTH EVERY DAY 12/29/2013 05/25/2014 Inactive hydrocodone 10 mg-acetaminophen 325 mg tablet RxNorm: 956305 TAKE ONE TO TWO TABLETS BY MOUTH FOUR TIMES A DAY . MUST LAST 30 DAYS 12/29/20132013 Inactive (Response to an electronic controlled [place] bstance refill request - RxReferenceNumber: [id number]) Trazadone 75mg Tablet RxNorm: 1 Tablet(s) PO QHS as needed 03/23/2014 Inactive Trazadone 75mg Tablet RxNorm: 1 Tablet(s) PO QHS 12/24/20132014 Inactive Soma 350 mg tablet RxNorm: 177074 Tablet(s) PO TAKE ON E TABLET BY MOUTH THREE TIMES A DAY NEEDED FOR MUSCLE SPASMS. THIS MUST LAST 30 DAYS BETWEEN REFILLS. 12/10/2013 12/22/2013 Inactive (Appended: Cont rolled substance eRx refill - RxReferenceNumber: [id number]) diclofenac sodium 75 mg tablet,delayed release RxNorm: 08996 6 1 Tablet(s) PO BID for pain 12/10/2013 02/24/2014 Inactive allopurinol 300 mg tablet RxNorm: 850873 1 Tablet(s) PO QD 11/20/19 14 12/29/2013 Inactive alprazolam 0.5 mg tablet RxNorm: 029990 2 Tablet(s) PO BID 11/13/19 14 12/29/2013 Inactive prn clonidine 0.1 mg tablet RxNorm: 670084 1 Tablet(s) PO TID 11/12/2013 02/09/2014 Inactive replaces 0.2mg dose Klor-Con M20 mEq tablet,extended release RxNorm: 768029 2 Tablet(s) PO BID to use with lasix 11/12/2013 05/10/2014 Inactive Singulair 10 mg tablet RxNorm: 135964 1 Tablet(s) PO QD 11/12/2013 Inactive hydrocodone 10 mg-acetaminophen 325 mg tablet RxNorm: 626812 1-2 Tablet(s) PO QID as needed for severe pain 11/12/2013 12/28/2013 Inactive Bystolic 10 mg tablet RxNorm: 915146 1 Tablet(s) PO QAM 11/12/2013 Inactive Soma 350 mg tablet RxNorm: 393690 Tablet(s) PO TAKE ON E TABLET BY MOUTH THREE TIMES A DAY NEEDED FOR MUSCLE SPASMS. THIS MUST LAST 30 DAYS BETWEEN REFILLS. 10/13/2013 12/10/2013 Inactive (Appended: Cont rolled substance eRx refill - RxReferenceNumber: [id number]) hydrocodone 10 mg-acetaminophen 325 mg tablet RxNorm: 815385 1-2 Tablet(s) PO QID as needed for severe pain 10/03/2013 11/11/2013 Inactive diclofenac sodium 75 mg tablet,delayed release RxNorm: 75828 8 1 Tablet(s) PO BID for pain 09/11/2013 12/10/2013 Inactive alprazolam 0.5 mg tablet RxNorm: 763637 1 Tablet(s) PO BID May refill on 04/26/13 09/01/2013 10/30/2013 Inactive prn hydrocodone 10 mg-acetaminophen 325 mg tablet RxNorm: 414566 1-2 Tablet(s) PO QID as needed for severe pain 09/01/2013 10/02/2013 Inactive triamterene 75 mg-hydrochlorothiazide 50 mg tablet RxNorm: 3 38055 1 Tablet(s) PO QD 08/04/2013 08/31/2014 Inactive cyclobenzaprine 10 mg tablet RxNorm: 867873 1 Tablet(s) PO TID prn spasm 08/04/2013 08/13/2013 Inactive clonidine 0.1 mg tablet RxNorm: 789154 1 Tablet(s) PO TID 08/04/2013 11/11/2013 Inactive replaces 0.2mg dose cyclobenzaprine 10 mg tablet RxNorm: 545469 1 Tablet(s) PO TID prn spasm 07/23/2013 08/01/2013 Inactive hydrocodone 10 mg-acetaminophen 325 mg tablet RxNorm: 336864 2 1-2 Tablet(s) PO QID as needed for severe pain 06/09/2013 08/07/2013 Inactive Singulair 10 mg tablet RxNorm: 427892 1 Tablet(s) PO QD 05/29/2013 Inactive Klor-Con 8 mEq tablet,extended release RxNorm: 883460 1 Tablet( s) PO BID 05/29/2013 02/26/2014 Inactive allopurinol 300 mg tablet RxNorm: 113244 1 Tablet(s) PO QD 05/29/20 13 11/19/2013 Inactive Bystolic 10 mg tablet RxNorm: 480589 1 Tablet(s) PO QAM take one daily in the morning. 05/29/2013 11/11/2013 Inactive scopolamine 1.5 mg 72 hr Transderm Patch RxNorm: 109064 Application TD Q72H for motion sickness 05/26/2013 07/22/2013 Inactive Soma 350 mg tablet RxNorm: 371075 1 Tablet(s) PO TID as needed for spasm 05/19/2013 10/13/2013 Inactive diclofenac sodium 75 mg tablet,delayed release RxNorm: 68747 8 1 Tablet(s) PO BID for pain 05/14/2013 07/22/2013 Inactive allopurinol 300 mg tablet RxNorm: 090583 1 Tablet(s) PO QD 04/25/20 13 05/28/2013 Inactive alprazolam 0.5 mg tablet RxNorm: 223557 1 Tablet(s) PO BID May refill on 04/26/13 04/25/2013 06/23/2013 Inactive prn Celebrex 200 mg capsule RxNorm: 900547 1 Capsule(s) PO QD 04/16/2013 12/29/2013 Inactive alprazolam 0.5 mg tablet RxNorm: 557598 1 Tablet(s) PO BID May refill on 04/26/13 04/16/2013 04/24/2013 Inactive prn Soma 350 mg tablet RxNorm: 188398 1 Tablet(s) PO TID as needed for spasm 04/16/2013 No Stop Date Active Lasix 40 mg tablet RxNorm: 637461 1 Tablet(s) PO RAZA ramirez take potassium supplementation with this medication 04/16/2013 06/14/2013 Inactive clonidine 0.1 mg tablet RxNorm: 381332 1 Tablet(s) PO TID 04/16/2013 08/03/2013 Inactive replaces 0.2mg dose prednisone 20 mg tablet RxNorm: 383142 1 Tablet(s) PO BID 04/16/2013 04/20/2013 Inactive diclofenac sodium 75 mg tablet,delayed release RxNorm: 83002 8 1 Tablet(s) PO BID for pain 04/14/2013 05/13/2013 Inactive hydrocodone 10 mg-acetaminophen 325 mg tablet RxNorm: 778709 2 1-2 Tablet(s) PO QID as needed for severe pain 04/14/2013 No Stop Date Active Lasix 40 mg tablet RxNorm: 298922 1 Tablet(s) PO RAZA ramirez take potassium supplementation with this medication 03/31/2013 04/15/2013 Inactive Celebrex 200 mg capsule RxNorm: 467289 1 Capsule(s) PO QD 03/31/2013 04/15/2013 Inactive alprazolam 0.5 mg tablet RxNorm: 379963 1 Tablet(s) PO BID 03/28/2004/15/2013 Inactive prn hydrocodone 10 mg-acetaminophen 325 mg tablet RxNorm: 804649 2 1-2 Tablet(s) PO QID as needed for severe pain 03/10/2013 No Stop Date Active metformin ER 500 mg 24 hr tablet,extended release RxNorm: 86 1018 1 Tablet(s) PO QD 03/06/2013 07/22/2013 Inactive clindamycin 300 mg capsule RxNorm: 706315 2 Capsule(s) PO TID 03/0503/14/2013 Inactive Zaroxolyn 2.5 mg tablet RxNorm: 025013 1 Tablet(s) PO QAM 03/05/2013 05/19/2015 Inactive amlodipine 10 mg tablet RxNorm: 360131 1 Tablet(s) PO QD 03/03/2013 0 05/25/2013 Inactive Norvasc 10 mg tablet RxNorm: 118254 1 Tablet(s) PO QD 02/28/201307/11 Inactive Celebrex 200 mg capsule RxNorm: 361411 1 Capsule(s) PO QD 02/28/2013 03/30/2013 Inactive diclofenac sodium 75 mg tablet,delayed release RxNorm: 44320 8 1 Tablet(s) PO BID for pain 02/14/2013 03/15/2013 Inactive Soma 350 mg tablet RxNorm: 997122 1 Tablet(s) PO TID as needed for spasm 02/14/2013 No Stop Date Active hydrocodone 10 mg-acetaminophen 325 mg tablet RxNorm: 607834 2 1-2 Tablet(s) PO QID as needed for severe pain 02/14/2013 No Stop Date Active Norvasc 10 mg tablet RxNorm: 109879 1 Tablet(s) PO QD 02/10/201302/09 Inactive Celebrex 200 mg capsule RxNorm: 640148 1 Capsule(s) PO QD 01/27/2013 01/26/2013 Inactive Premarin 1.25 mg tablet RxNorm: 796488 1-2 Tablet(s) PO QD 01/28/20 13 06/25/2013 Inactive alprazolam 0.5 mg tablet RxNorm: 245265 1 Tablet(s) PO BID 01/28/20 13 02/25/2013 Inactive prn amlodipine 5 mg tablet RxNorm: 231801 1 Tablet(s) PO QD 01/27/2013 Inactive Celebrex 200 mg capsule RxNorm: 299382 1 Capsule(s) PO QD 01/27/2013 02/27/2013 Inactive gabapentin 600 mg tablet RxNorm: 897697 1 Tablet(s) PO QHS 01/16/20 13 07/22/2013 Inactive Soma 350 mg tablet RxNorm: 771954 1 Tablet(s) PO TID as needed for spasm 01/15/2013 No Stop Date Active hydrocodone 10 mg-acetaminophen 325 mg tablet RxNorm: 841235 2 1-2 Tablet(s) PO QID as needed for severe pain 01/15/2013 No Stop Date Active Soma 350 mg tablet RxNorm: 173454 1 Tablet(s) PO TID as needed for spasm 01/13/2013 No Stop Date Active alprazolam 0.5 mg tablet RxNorm: 660143 1 Tablet(s) PO BID 12/31/19 13 01/26/2013 Inactive prn diclofenac sodium 75 mg tablet,delayed release RxNorm: 85992 8 1 Tablet(s) PO BID for pain 12/09/2012 01/07/2013 Inactive gabapentin 600 mg tablet RxNorm: 689238 1 Tablet(s) PO QHS 12/10/19 13 01/07/2013 Inactive hydrocodone 10 mg-acetaminophen 325 mg tablet RxNorm: 939566 2 1-2 Tablet(s) PO QID as needed for severe pain 12/02/2012 No Stop Date Active Levaquin 750 mg tablet RxNorm: 378575 1 Tablet(s) PO QD 11/21/2012 Inactive Singulair 10 mg tablet RxNorm: 031960 1 Tablet(s) PO QD 11/11/2012 Inactive clonidine 0.2 mg tablet RxNorm: 043739 1 Tablet(s) PO TID 11/11/2012 04/15/2013 Inactive alprazolam 0.5 mg tablet RxNorm: 734714 1 Tablet(s) PO BID 11/12/19 13 12/10/2012 Inactive prn Klor-Con 8 mEq tablet,extended release RxNorm: 129299 1 Tablet( s) PO BID 11/11/2012 03/04/2013 Inactive hydrocodone 10 mg-acetaminophen 325 mg tablet RxNorm: 822981 2 1-2 Tablet(s) PO QID as needed for severe pain 11/06/2012 No Stop Date Active alprazolam 0.5 mg tablet RxNorm: 150283 1 Tablet(s) PO BID 10/15/19 13 11/10/2012 Inactive prn hydrocodone-acetaminophen 10 mg-325 mg tablet RxNorm: 351050 2 1-2 Tablet(s) PO QID as needed for severe pain 10/10/2012 10/09/2012 Inactive allopurinol 300 mg tablet RxNorm: 526489 1 Tablet(s) PO QD 09/20/19 13 12/18/2012 Inactive alprazolam 0.5 mg tablet RxNorm: 971936 1 Tablet(s) PO BID 09/17/19 13 10/14/2012 Inactive prn hydrocodone-acetaminophen 10 mg-325 mg tablet RxNorm: 582027 2 1-2 Tablet(s) PO QID as needed for severe pain 08/22/2012 08/21/2012 Inactive Norvasc 10 mg tablet RxNorm: 948444 1 Tablet(s) PO QD 08/12/201201/10 Inactive Premarin 1.25 mg tablet RxNorm: 212744 1-2 Tablet(s) PO QD 07/30/20 12 12/26/2012 Inactive alprazolam 0.5 mg tablet RxNorm: 765196 1 Tablet(s) PO BID 07/29/20 12 08/27/2012 Inactive prn Klor-Con 8 mEq tablet,extended release RxNorm: 116011 1 Tablet( s) PO BID 07/29/2012 11/10/2012 Inactive hydrocodone-acetaminophen 10 mg-325 mg tablet RxNorm: 474329 2 1-2 Tablet(s) PO QID as needed for severe pain 07/29/2012 No Stop Date Active Premarin 1.25 mg tablet RxNorm: 078955 1-2 Tablet(s) PO QD 07/29/20 12 07/29/2012 Inactive clonidine 0.2 mg tablet RxNorm: 806820 1 Tablet(s) PO TID 07/29/2012 10/28/2012 Inactive ketorolac 10 mg tablet RxNorm: 886413 1 Tablet(s) PO QID prn he adache 07/18/2012 No Stop Date Active hydrocodone-acetaminophen 10 mg-325 mg tablet RxNorm: 124004 2 1-2 Tablet(s) PO QID as needed for severe pain 07/03/2012 No Stop Date Active amlodipine 5 mg tablet RxNorm: 707424 1 Tablet(s) PO QD 07/02/2012 Inactive allopurinol 300 mg tablet RxNorm: 947416 1 Tablet(s) PO QD 07/02/20 12 09/19/2012 Inactive Celebrex 200 mg capsule RxNorm: 826370 1 Capsule(s) PO QD for j oint pain 06/26/2012 10/23/2012 Inactive diclofenac sodium 75 mg tablet,delayed release RxNorm: 17629 8 1 Tablet(s) PO BID for pain 06/19/2012 09/16/2012 Inactive hydrocodone-acetaminophen 10 mg-325 mg tablet RxNorm: 884964 2 1-2 Tablet(s) PO QID as needed for severe pain 06/10/2012 No Stop Date Active alprazolam 0.5 mg tablet RxNorm: 112329 1 Tablet(s) PO BID 06/03/20 12 07/02/2012 Inactive prn ketorolac 10 mg tablet RxNorm: 662604 1 Tablet(s) PO Q8H 05/27/2012 0 01/21/2019 Inactive as needed for headache hydrocodone-acetaminophen 10 mg-325 mg tablet RxNorm: 354299 2 1-2 Tablet(s) PO QID as needed for severe pain 05/15/2012 No Stop Date Active allopurinol 300 mg tablet RxNorm: 968047 1 Tablet(s) PO QD 05/14/20 12 06/12/2012 Inactive allopurinol 300 mg tablet RxNorm: 436938 1 Tablet(s) PO QD 05/14/20 12 05/13/2012 Inactive amlodipine 5 mg tablet RxNorm: 548046 1 Tablet(s) PO QD 05/01/2012 Inactive amlodipine 5 mg Tab RxNorm: 501046 1 Tablet(s) PO QD 05/01/201204/30 Inactive Celebrex 200 mg capsule RxNorm: 703533 1 Capsule(s) PO QD for j oint pain 05/01/2012 06/25/2012 Inactive Singulair 10 mg tablet RxNorm: 452383 1 Tablet(s) PO QD 05/01/2012 Inactive alprazolam 0.5 mg tablet RxNorm: 447657 1 Tablet(s) PO BID 05/01/20 12 05/30/2012 Inactive prn Celebrex 200 mg Cap RxNorm: 883000 1 Capsule(s) PO QD for joint radu n 05/01/2012 04/30/2012 Inactive hydrocodone-acetaminophen 10 mg-325 mg tablet RxNorm: 710209 2 1-2 Tablet(s) PO QID as needed for severe pain 04/19/2012 No Stop Date Active Lasix 40 mg tablet RxNorm: 774144 1 Tablet(s) PO QAM alan hould take potassium supplementation with this medication 04/05/2012 06/03/2012 Inactive alprazolam 0.5 mg Tab RxNorm: 198851 1 Tablet(s) PO BID 04/05/2012 Inactive prn hydrocodone-acetaminophen 10 mg-325 mg Tab RxNorm: 8396431 1-2 Tablet(s) PO QID as needed for severe pain 03/25/2012 03/24/2012 Inactive clonidine 0.2 mg Tab RxNorm: 293139 1 Tablet(s) PO TID 03/08/2012 Inactive alprazolam 0.5 mg Tab RxNorm: 665529 1 Tablet(s) PO BID 03/08/2012 Inactive prn Soma 350 mg tablet RxNorm: 152030 1 Tablet(s) PO TID for spasm 02/0903/18/2012 Inactive clonidine 0.2 mg tablet RxNorm: 277271 1 Tablet(s) PO TID 03/08/2012 07/28/2012 Inactive Celebrex 200 mg Cap RxNorm: 676012 1 Capsule(s) PO QD for joint radu n 03/01/2012 04/29/2012 Inactive amlodipine 5 mg Tab RxNorm: 380527 1 Tablet(s) PO QD 02/26/201202/24 Inactive amlodipine 5 mg Tab RxNorm: 686705 1 Tablet(s) PO QD 02/26/201204/25 Inactive Bactroban 2 % Ointment RxNorm: 661225 Application TOP QID to sores 02/23/2012 No Stop Date Active amlodipine 2.5 mg tablet RxNorm: 183103 1 Tablet(s) PO QHS 02/20/2002/25/2012 Inactive doxycycline hyclate 100 mg Cap RxNorm: 3109083 1 Capsule(s) PO BID 02/20/2012 02/29/2012 Inactive hydrocodone-acetaminophen 10 mg-325 mg Tab RxNorm: 5939092 1-2 T ablet(s) PO QID 02/08/2012 No Stop Date Active alprazolam 0.5 mg Tab RxNorm: 214232 1 Tablet(s) PO BID 02/08/2012 Inactive prn Singulair 10 mg Tab RxNorm: 297258 1 Tablet(s) PO QD 02/08/201204/30 Inactive Soma 350 mg Tab RxNorm: 869506 1 Tablet(s) PO TID for spasm 012 03/07/2012 Inactive Soma 350 mg Tab RxNorm: 720840 1 Tablet(s) PO TID for spasm 02/05/2012 Inactive diclofenac sodium 75 mg tablet,delayed release RxNorm: 87714 8 1 Tablet(s) PO BID for pain 02/01/2012 03/18/2012 Inactive Celebrex 200 mg Cap RxNorm: 634665 1 Capsule(s) PO QD for joint radu n 01/30/2012 02/28/2012 Inactive Lasix 40 mg Tab RxNorm: 722948 1 Tablet(s) PO QAM 01/24/2012 03/18/20 12 Inactive potassium chloride ER 20 mEq tablet,extended release(part/cr yst) RxNorm: 082684 2 Tablet(s) PO BID 01/24/2012 02/22/2012 Inactive alprazolam 0.5 mg Tab RxNorm: 515716 1 Tablet(s) PO BID 01/11/2012 Inactive prn hydrocodone-acetaminophen 10 mg-325 mg Tab RxNorm: 3040190 1-2 T ablet(s) PO QID 01/11/2012 No Stop Date Active Ambien 10 mg Tab RxNorm: 117366 1 Tablet(s) PO QHS 01/11/2012 012 Inactive Klor-Con 8 mEq Tab RxNorm: 067914 1 Tablet(s) PO BID 01/11/201201/22 Inactive diclofenac sodium 75 mg Tab, Delayed Release RxNorm: 178607 1 Tablet(s) PO BID for pain 01/10/2012 01/31/2012 Inactive Ambien 10 mg Tab RxNorm: 458272 1 Tablet(s) PO QHS 12/11/2011 012 Inactive alprazolam 0.5 mg Tab RxNorm: 342018 1 Tablet(s) PO BID 12/11/2011 Inactive prn hydrocodone 10 mg-acetaminophen 325 mg tablet RxNorm: 939342 1-2 Tablet(s) PO TID 11/28/2011 No Stop Date Active as needed for pa in - Previous quantity #240, will start dosing for #180 in April 2011 per Doctor Td. Ambien 10 mg Tab RxNorm: 628318 1 Tablet(s) PO QHS 11/09/2011 012 Inactive alprazolam 0.5 mg Tab RxNorm: 586196 1 Tablet(s) PO BID 11/09/2011 Inactive prn hydrocodone-acetaminophen 10 mg-325 mg Tab RxNorm: 4139653 1-2 T ablet(s) PO TID 11/06/2011 No Stop Date Active as needed for pain - Previous quantity #240, will start dosing for #180 in April 2011 per Doctor Td. Singulair 10 mg Tab RxNorm: 115551 1 Tablet(s) PO QD 10/13/201110/12 Inactive Singulair 10 mg Tab RxNorm: 375357 1 Tablet(s) PO QD 10/13/201102/06 Inactive hydrocodone-acetaminophen 10 mg-325 mg Tab RxNorm: 2166191 1-2 T ablet(s) PO TID 10/10/2011 10/09/2011 Inactive as needed for pain - Previous quantity #240, will start dosing for #180 in April 2011 per Doctor Td. hydrocodone-acetaminophen 10 mg-325 mg Tab RxNorm: 9608234 1-2 T ablet(s) PO TID 10/09/2011 No Stop Date Active as needed for pain - Previous quantity #240, will start dosing for #180 in April 2011 per Doctor Td. Klor-Con 8 mEq Tab RxNorm: 260457 1 Tablet(s) PO BID 10/02/201101/09 Inactive triamterene 75 mg-hydrochlorothiazide 50 mg tablet RxNorm: 3 49916 1 Tablet(s) PO QD 09/14/2011 03/06/2013 Inactive Ambien 10 mg Tab RxNorm: 732282 1 Tablet(s) PO QHS 09/14/2011 012 Inactive hydrocodone-acetaminophen 10 mg-325 mg Tab RxNorm: 4724379 1-2 T ablet(s) PO TID 09/14/2011 No Stop Date Active as needed for pain - Previous quantity #240, will start dosing for #180 in April 2011 per Doctor Td. alprazolam 0.5 mg Tab RxNorm: 768179 1 Tablet(s) PO BID 09/14/2011 Inactive prn Zithromax 500 mg Tab RxNorm: 333575 1 Tablet(s) PO QD 09/13/201109/10 Inactive prednisone 20 mg Tab RxNorm: 630268 1 Tablet(s) PO BID 08/31/2011 Inactive Ambien 10 mg Tab RxNorm: 631844 1 Tablet(s) PO QHS 08/17/2011 011 Inactive hydrocodone-acetaminophen 10 mg-325 mg Tab RxNorm: 2604647 1-2 T ablet(s) PO TID 08/17/2011 No Stop Date Active as needed for pain - Previous quantity #240, will start dosing for #180 in April 2011 per Doctor Td. clonidine 0.2 mg Tab RxNorm: 531198 1 Tablet(s) PO TID 08/17/201112/2011 Inactive Ambien 10 mg Tab RxNorm: 958184 1 Tablet(s) PO QHS 08/17/2011 019 Inactive alprazolam 0.5 mg Tab RxNorm: 693398 1 Tablet(s) PO BID 08/17/2011 Inactive prn hydrocodone-acetaminophen 10 mg-325 mg Tab RxNorm: 7821290 1-2 T ablet(s) PO TID 08/17/2011 08/16/2011 Inactive as needed for pain - Previous quantity #240, will start dosing for #180 in April 2011 per Doctor Td. Singulair 10 mg Tab RxNorm: 439216 1 Tablet(s) PO QD 08/17/201108/16 Inactive Klor-Con 8 mEq Tab RxNorm: 146397 1 Tablet(s) PO QD 08/17/20112011 Inactive alprazolam 0.5 mg Tab RxNorm: 479209 1 Tablet(s) PO BID 07/20/2011 Inactive prn Ambien 10 mg Tab RxNorm: 352744 1 Tablet(s) PO QHS 07/20/2011 012 Inactive Singulair 10 mg Tab RxNorm: 680593 1 Tablet(s) PO QD 07/20/201107/19 Inactive Premarin 1.25 mg tablet RxNorm: 364331 2 Tablet(s) PO QD 07/20/2011 0 01/21/2019 Inactive Premarin 1.25 mg tablet RxNorm: 792832 1-2 Tablet(s) PO QD 07/20/20 11 12/16/2011 Inactive Premarin 1.25 mg Tab RxNorm: 096856 1-2 Tablet(s) PO QD 07/06/2011 Inactive alprazolam 0.5 mg Tab RxNorm: 508427 1 Tablet(s) PO BID 06/22/2011 Inactive prn alprazolam 0.5 mg Tab RxNorm: 808230 1 Tablet(s) PO BID 06/22/2011 Inactive prn Premarin 1.25 mg Tab RxNorm: 808597 1 Tablet(s) PO QD m ay do 90 day fill if desired 06/22/2011 07/05/2011 Inactive hydrocodone-acetaminophen 10 mg-325 mg Tab RxNorm: 2399706 1-2 T ablet(s) PO TID 06/22/2011 No Stop Date Active as needed for pain - Previous quantity #240, will start dosing for #180 in April 2011 per Doctor Td. clonidine 0.2 mg Tab RxNorm: 569835 1 Tablet(s) PO TID 05/25/201103/2011 Inactive triamterene-hydrochlorothiazide 75 mg-50 mg Tab RxNorm: 3108 18 1 Tablet(s) PO QD 05/25/2011 09/13/2011 Inactive alprazolam 0.5 mg Tab RxNorm: 465383 1 Tablet(s) PO BID 05/25/2011 Inactive prn hydrocodone-acetaminophen 10 mg-325 mg Tab RxNorm: 7967119 1-2 T ablet(s) PO TID 05/25/2011 No Stop Date Active as needed for pain - Previous quantity #240, will start dosing for #180 in April 2011 per Doctor Td. Robaxin-750 750 mg Tab RxNorm: 285266 2 Tablet(s) PO QHS 05/22/2011 1 Inactive prn spasm hydrocodone-acetaminophen 10 mg-325 mg Tab RxNorm: 1831736 1-2 T ablet(s) PO TID 04/26/2011 No Stop Date Active as needed for pain - Previous quantity #240, will start dosing for #180 in April 2011 per Doctor Td. alprazolam 0.5 mg Tab RxNorm: 609644 1 Tablet(s) PO BID 04/25/2011 Inactive prn Klor-Con 8 mEq Tab RxNorm: 321899 1 Tablet(s) PO QD 03/30/20112010 Inactive Klor-Con 8 mEq Tab RxNorm: 494320 1 Tablet(s) PO QD 03/29/20112010 Inactive hydrocodone-acetaminophen 10 mg-325 mg Tab RxNorm: 2338406 1-2 T ablet(s) PO TID 03/20/2011 04/25/2011 Inactive as needed for pain - Previous quantity #240, will start dosing for #180 in April 2011 per Doctor Td. alprazolam 0.5 mg Tab RxNorm: 889165 1 Tablet(s) PO BID prn 011 03/30/2011 Inactive Ambien 10 mg Tab RxNorm: 232936 1 Tablet(s) PO QHS 03/01/2011 011 Inactive cyclobenzaprine 10 mg Tab RxNorm: 689105 1 Tablet(s) PO TID 011 03/18/2012 Inactive cyclobenzaprine 10 mg Tab RxNorm: 435515 1 Tablet(s) PO TID 011 01/08/2011 Inactive cyclobenzaprine 10 mg Tab RxNorm: 714666 1 Tablet(s) PO TID 011 12/20/2010 Inactive terbinafine 250 mg Tab RxNorm: 212673 1 Tablet(s) PO QD 12/12/2010 Inactive triamterene-hydrochlorothiazide 75 mg-50 mg Tab RxNorm: 3108 18 1 Tablet(s) PO QD 12/07/2010 06/04/2011 Inactive Klor-Con 8 8 mEq Tab RxNorm: 358350 1 Tablet(s) PO QD 12/07/201001/08 Inactive Premarin 1.25 mg Tab RxNorm: 213309 2 Tablet(s) PO QD 12/07/201001/08 Inactive clonidine 0.2 mg Tab RxNorm: 257321 1 Tablet(s) PO TID 12/07/2010 Inactive hydrocodone-acetaminophen 7.5 mg-650 mg Tab RxNorm: 819500 1 Ta blet(s) PO Q4H 12/05/2010 01/21/2019 Inactive hydrocodone-acetaminophen 7.5 mg-650 mg Tab RxNorm: 390351 1 Ta blet(s) PO Q4H 10/26/2010 11/14/2010 Inactive hydrocodone-acetaminophen 7.5 mg-650 mg Tab RxNorm: 639547 1 Ta blet(s) PO Q4H 10/13/2010 10/25/2010 Inactive hydrocodone-acetaminophen 7.5 mg-650 mg Tab RxNorm: 840920 1 Ta blet(s) PO Q4H 09/15/2010 09/12/2010 Inactive alprazolam 0.5 mg Tab RxNorm: 702753 1 Tablet(s) PO BID prn 011 09/12/2010 Inactive terbinafine 250 mg Tab RxNorm: 377170 1 Tablet(s) PO QD 09/05/2010 Inactive hydrocodone-acetaminophen 7.5 mg-650 mg Tab RxNorm: 998014 1 Ta blet(s) PO Q4H 08/29/2010 09/17/2010 Inactive alprazolam 0.5 mg Tab RxNorm: 490522 1 Tablet(s) PO BID prn 010 09/27/2010 Inactive alprazolam 0.5 mg Tab RxNorm: 653639 1 Tablet(s) PO BID prn 010 09/06/2010 Inactive Klor-Con 8 mEq Tab RxNorm: 649697 1 Tablet(s) PO QD 08/08/20102010 Inactive hydrocodone-acetaminophen 7.5 mg-650 mg Tab RxNorm: 927076 1 Ta blet(s) PO Q4H 08/08/2010 08/27/2010 Inactive Ambien 10 mg Tab RxNorm: 479710 1 Tablet(s) PO QHS 08/08/2010 Inactive clonidine 0.2 mg Tab RxNorm: 337182 1 Tablet(s) PO TID 08/08/2010 Inactive Premarin 1.25 mg Tab RxNorm: 735116 2 Tablet(s) PO QD 08/08/201009/12 Inactive Ambien 10 mg Tab RxNorm: 664405 1 Tablet(s) PO QHS 07/18/2010 Inactive alprazolam 0.5 mg Tab RxNorm: 892243 1 Tablet(s) PO BID prn 010 08/07/2010 Inactive hydrocodone-acetaminophen 7.5 mg-650 mg Tab RxNorm: 936798 1 Ta blet(s) PO Q4H 07/12/2010 07/31/2010 Inactive clonidine 0.2 mg Tab RxNorm: 475758 1 Tablet(s) PO TID 06/20/2010 Inactive terbinafine 250 mg Tab RxNorm: 284196 1 Tablet(s) PO QD 05/24/2010 Inactive Clonidine 0.2 mg Tab RxNorm: 199612 1 Tablet(s) PO TID 05/24/201006/2010 Inactive Ambien 10 mg Tab RxNorm: 276648 1 Tablet(s) PO QHS 05/24/2010 Inactive alprazolam 0.5 mg Tab RxNorm: 805020 1 Tablet(s) PO BID 05/24/2010 Inactive Klor-Con 8 mEq Tab RxNorm: 560498 1 Tablet(s) PO QD 05/24/20102009 Inactive alprazolam 0.5 mg Tab RxNorm: 391578 2 Tablet(s) PO QD prn 05/24/20 10 07/17/2010 Inactive triamterene-hydrochlorothiazide 75 mg-50 mg Tab RxNorm: 3108 18 1 Tablet(s) PO QD 05/24/2010 11/19/2010 Inactive Ambien 10 mg Tab RxNorm: 948155 1 Tablet(s) PO QHS 05/23/2010 010 Inactive Alprazolam 0.5 mg Tab RxNorm: 927749 2 Tablet(s) PO QD prn 05/23/20 10 05/23/2010 Inactive Premarin 1.25 mg Tab RxNorm: 819018 2 Tablet(s) PO QD 05/19/201007/12 Inactive Hydrocodone-Acetaminophen 7.5 mg-650 mg Tab RxNorm: 800086 1 Ta blet(s) PO Q4H 05/19/2010 03/20/2011 Inactive Prednisone 20 mg Tab RxNorm: 898979 1 Tablet(s) PO BID 05/17/2010 Inactive Prednisone 20 mg Tab RxNorm: 377114 1 Tablet(s) PO BID 05/06/201001/2010 Inactive Premarin 1.25 mg Tab RxNorm: 983753 Tablet(s) PO 2 M-W-F, and 1 Ru-Iw-Eiu-Sun 05/05/2010 08/02/2010 Inactive Premarin 1.25 mg Tab RxNorm: 918439 Tablet(s) PO 2 M-W-F, and 1 Jf-Vc-Bxf-Sun 05/04/2010 05/04/2010 Inactive Premarin 1.25 mg Tab RxNorm: 324474 Tablet(s) PO 2 M-W-F, and 1 Lk-Gi-Sgy-Sun 05/04/2010 05/03/2010 Inactive Prednisone 20 mg Tab RxNorm: 580658 1 Tablet(s) PO BID 04/27/2010 Inactive Alprazolam 0.5 mg Tab RxNorm: 022438 2 Tablet(s) PO QD prn 04/26/20 10 05/22/2010 Inactive Clindamycin 300 mg Cap RxNorm: 282855 2 Capsule(s) PO TID 04/05/2010 04/18/2010 Inactive Terbinafine 250 mg Tab RxNorm: 591764 1 Tablet(s) PO QD 04/04/2010 Inactive Hydrocodone-Acetaminophen 7.5 mg-650 mg Tab RxNorm: 179240 1 Ta blet(s) PO Q4H 03/30/2010 04/18/2010 Inactive Avelox 400 mg Tab RxNorm: 881296 1 Tablet(s) PO QD 03/09/2010 010 Inactive Hydrocodone-Acetaminophen 7.5 mg-650 mg Tab RxNorm: 352603 1 Ta blet(s) PO Q4H 03/08/2010 03/27/2010 Inactive Alprazolam 0.5 mg Tab RxNorm: 976126 2 Tablet(s) PO QD prn 03/08/2004/25/2010 Inactive Klor-Con 8 mEq Tab RxNorm: 500848 1 Tablet(s) PO QD when takes lasi x 03/07/2010 09/29/2019 Inactive Premarin 1.25 mg Tab RxNorm: 047862 1 Tablet(s) PO QD 03/03/201003/11 Inactive Alprazolam 0.5 mg Tab RxNorm: 494558 1 Tablet(s) PO BID PRN 010 No Stop Date Active triamterene-hydrochlorothiazide 75 mg-50 mg Tab RxNorm: 3108 18 1 Tablet(s) PO QD 02/09/2010 02/03/2011 Inactive Hydrocodone-Acetaminophen 10 mg-750 mg Tab RxNorm: 378142 1 Tablet(s) PO Q4H PRN 02/09/2010 03/20/2011 Inactive Clonidine 0.2 mg Tab RxNorm: 552733 1 Tablet(s) PO TID 01/13/201009/2009 Inactive Alprazolam 0.5 mg Tab RxNorm: 287071 1 Tablet(s) PO BID PRN 010 01/12/2010 Inactive Hydrocodone-Acetaminophen 10 mg-750 mg Tab RxNorm: 106736 1 Tablet(s) PO Q4H PRN 01/13/2010 01/12/2010 Inactive ANGELIQ 1 mg-0.5 mg Tab RxNorm: 3379675 1 Tablet(s) PO QD 12/27/2009 01/23/2010 Inactive Lasix 40 mg Tab RxNorm: 578869 1 Tablet(s) PO QAM 12/14/2009 06/11/20 10 Inactive Vitamin B12 1000mcg Tablet RxNorm: 1 Tablet(s) PO QD No Start Date Active cyclobenzaprine 10 mg tablet RxNorm: 281877 1 Tablet(s) PO TID as needed DO NOT USE WITH BACLOFEN No Start Date Active Vitamin D 5,000 unit Tab RxNorm: 1 Tablet(s) PO QD No Start Date Active vitamin E (dl, acetate) 400 unit Cap RxNorm: 290331 1 Capsule(s ) PO QD No Start Date Active Benadryl 25 mg Cap RxNorm: 2735258 Capsule(s) PO PRN No Start Date Inactive amitriptyline 100 mg tablet RxNorm: 235882 1 Tablet(s) PO QHS No St art Date 11/27/2016 Inactive Zithromax Z-Dustin 250 mg tablet RxNorm: 850598 Tablet(s) PO as di rected No Start Date 07/22/2013 Inactive Klor-Con 8 mEq tablet,extended release RxNorm: 366857 1 Tablet( s) PO BID No Start Date 07/28/2012 Inactive scopolamine 1.5 mg 72 hr Transderm Patch RxNorm: 218735 Application TD Q72H for motion sickness No Start Date 05/25/2013 Inactive Klonopin 1 mg tablet RxNorm: 739376 1-2 Tablet(s) PO QHS as nee ded for sleep No Start Date 06/20/2015 Inactive Klor-Con M20 mEq tablet,extended release RxNorm: 282718 2 Tablet(s) PO BID to use with lasix No Start Date 11/11/2013 Inactive Bystolic 5 mg tablet RxNorm: 908469 1 Tablet(s) PO QD No Start Date 1 Inactive Bystolic 10 mg tablet RxNorm: 974452 1 Tablet(s) PO BID No Start Da te 07/06/2015 Inactive Premarin 1.25 mg Tab RxNorm: 072492 Tablet(s) PO 2 M-W-F, and 1 Iw-Le-Ggf-Sun No Start Date 05/03/2010 Inactive baclofen 20 mg tablet RxNorm: 078492 1 Tablet(s) PO TID as needed for muscle spasm No Start Date 07/22/2015 Inactive hydrocodone-acetaminophen 7.5 mg-650 mg Tab RxNorm: 518841 1 Tablet(s) PO Q4H as needed for pain No Start Date 03/20/2011 Inactive albuterol sulfate 1.25 mg/3 mL Neb Solution RxNorm: 539730 1 Unit Dose INH Q4H 2boxes No Start Date 09/06/2015 Inactive Butrans 20 mcg/hour Transderm Patch RxNorm: 216830 1 TD WEEKLY apply to skin weekly after removing previous. No Start Date 07/22/2013 Inactive Medrol (Dustin) 4 mg tablets in a dose pack RxNorm: 900851 Tablet(s) PO As Directed No Start Date 07/30/2016 Inactive hydrocodone-acetaminophen 10 mg-325 mg Tab RxNorm: 8658387 1-2 Tablet(s) PO TID as needed for pain No Start Date 03/19/2011 Inactive Klonopin 1 mg tablet RxNorm: 134455 1 Tablet(s) PO QHS No Start Date 02/28/2016 Inactive honey topical RxNorm: topical No Start Date 06/16/2018 Inactive Clonidine 0.2 mg Tab RxNorm: 268729 1 Tablet(s) PO TID No Start Date 01/12/2010 Inactive ketorolac 10 mg tablet RxNorm: 659022 1 Tablet(s) PO Q8H No Start D ate 03/18/2012 Inactive as needed for headache Singulair 10 mg Tab RxNorm: 296702 1 Tablet(s) PO QD No Start Date Inactive Premarin 1.25 mg Tab RxNorm: 948633 1 Tablet(s) PO QD No Start Date 1 Inactive Flonase 50 mcg/Actuation Nasal [place] RxNorm: 2486341 1 [place] CECELIA AL BID No Start Date 03/18/2012 Inactive Terbinafine 250 mg Tab RxNorm: 528055 1 Tablet(s) PO QD No Start Da te 04/03/2010 Inactive Fexofenadine 180 mg Tab RxNorm: 5159691 1 Tablet(s) PO QD No Start Date 09/06/2015 Inactive baclofen 20 mg tablet RxNorm: 550686 1 Tablet(s) PO TID as needed N o Start Date 05/25/2014 Inactive Diovan 160 mg Tab RxNorm: 140377 1 Tablet(s) PO QD No Start Date 09/12 Inactive mupirocin 2 % topical ointment RxNorm: 962564 1 Application TOP QID No Start Date 04/25/2016 Inactive ZOFRAN ODT 4 mg Tab, Rapid Dissolve RxNorm: 950949 1 Tablet(s) PO Q4H No Start Date 03/18/2012 Inactive as needed for nausea and vomiting Alprazolam 0.5 mg Tab RxNorm: 646783 1 Tablet(s) PO BID PRN No Star t Date 01/12/2010 Inactive cyclobenzaprine 10 mg tablet RxNorm: 179950 1 Tablet(s) PO TID as needed for muscle spasm No Start Date 10/08/2017 Inactive Albuterol 0.083% Aerosol Solution RxNorm: 1 Appl ication INH Q4H Use one ampule every 4 hrs with nebulizer as needed for shortness of breath. No Start Date 10/09/2010 Inactive lorazepam 1 mg tablet RxNorm: 506258 1 1/2 Tablet(s) PO QHS No Star t Date 02/02/2016 Inactive Melatonin 3 mg Tab RxNorm: 905195 Tablet(s) PO PRN No Start Date 07/11 Inactive Medrol (Dustin) 4 mg Tabs in a Dose Pack RxNorm: 226588 Tablet(s) PO N o Start Date 11/28/2010 Inactive lorazepam 1 mg tablet RxNorm: 593651 1 Tablet(s) PO QHS as need ed for sleep No Start Date 01/30/2016 Inactive hydrocodone-acetaminophen 10 mg-325 mg Tab RxNorm: 5055422 1-2 Tablet(s) PO QID as needed for severe pain No Start Date 03/24/2012 Inactive celecoxib 200 mg capsule RxNorm: 509280 1 Capsule(s) PO BID No Star t Date 06/26/2019 Inactive amlodipine 5 mg-benazepril 20 mg capsule RxNorm: 922697 1 Capsu le(s) PO QD No Start Date 04/10/2017 Inactive Bystolic 20 mg tablet RxNorm: 789654 1/2 Tablet(s) PO QAM No Start Date 01/23/2016 Inactive Bystolic 20 mg tablet RxNorm: 918064 1 Tablet(s) PO QAM No Start Da te 04/25/2016 Inactive Ambien 10 mg Tab RxNorm: 683463 1 Tablet(s) PO QHS No Start Date 05/11 Inactive Klor-Con 8 mEq Tab RxNorm: 684171 1 Tablet(s) PO QD when takes lasix No Start Date 03/06/2010 Inactive aspirin 81 mg tablet RxNorm: 522617 1 Tablet(s) PO QD No Start Date 0 01/29/2018 Inactive hydrocodone-acetaminophen 10 mg-325 mg Tab RxNorm: 6193217 1-2 T ablet(s) PO QID No Start Date 01/10/2012 Inactive Bystolic 10 mg tablet RxNorm: 981733 1 Tablet(s) PO QAM take one daily in the morning. No Start Date 05/28/2013 Inactive nystatin 100,000 unit/mL Oral Susp RxNorm: 812598 5 Milliliter( s) PO QID No Start Date 03/18/2012 Inactive swish and spit scopolamine 1.5 mg 72 hr Transderm Patch RxNorm: 220806 1 Unit Dose TD Q72H for motion sickness No Start Date 12/23/2013 Inactive Hydrocodone-Acetaminophen 10 mg-750 mg Tab RxNorm: 577049 1 Tablet(s) PO Q4H PRN No Start Date 01/12/2010 Inactive Soma 350 mg tablet RxNorm: 160719 1 Tablet(s) PO TID as needed for spasm No Start Date 01/12/2013 Inactive baclofen 10 mg tablet RxNorm: 799517 1 Tablet(s) PO TID as needed for muscle spasm No Start Date 09/18/2019 Inactive Soma 350 mg Tab RxNorm: 560577 1 Tablet(s) PO TID for spasm No Star t Date 01/31/2012 Inactive Co Q-10 400 mg capsule RxNorm: 039083 1 Capsule(s) PO QD No Start D ate 01/21/2019 Inactive nystatin 100,000 unit/gram topical cream RxNorm: 681605 Applica tion TOP BID No Start Date 03/22/2015 Inactive Exforge 5 mg-160 mg Tab RxNorm: 161725 1 Tablet(s) PO QD No Start D ate 10/09/2010 Inactive Hydrocodone-Acetaminophen 7.5 mg-650 mg Tab RxNorm: 653179 1 Ta blet(s) PO Q4H No Start Date 03/07/2010 Inactive Robaxin-750 750 mg Tab RxNorm: 791372 1-2 Tablet(s) PO TID prn spasm No Start Date 05/21/2011 Inactive amlodipine 5 mg tablet RxNorm: 977353 1 Tablet(s) PO QHS No Start D ate 09/29/2015 Inactive oxycodone-acetaminophen 10 mg-325 mg tablet RxNorm: 9754675 1-2 Tablet(s) PO Q6H No Start Date 06/16/2018 Inactive Triamterene-Hydrochlorothiazide 75 mg-50 mg Tab RxNorm: 3108 18 1 Tablet(s) PO QD No Start Date 02/08/2010 Inactive Alprazolam 0.5 mg Tab RxNorm: 990402 2 Tablet(s) PO QD prn No Start Date 03/07/2010 Inactive Bystolic 20 mg tablet RxNorm: 869906 1 Tablet(s) PO QAM No Start Da te 08/17/2015 Inactive ketorolac 10 mg tablet RxNorm: 658598 1 Tablet(s) PO QID prn he adache No Start Date 07/17/2012 Inactive acyclovir 800 mg Tab RxNorm: 414113 1 Tablet(s) PO BID No Start Date 03/18/2012 Inactive duloxetine 60 mg capsule,delayed release RxNorm: 706435 1 Capsu le(s) PO QD No Start Date 09/29/2015 Inactive Norvasc 5 mg tablet RxNorm: 935454 1 Tablet(s) PO QHS No Start Date 1 10/18/2014 Inactive promethazine 25 mg tablet RxNorm: 839158 1 Tablet(s) PO Q8H use sparingly No Start Date 07/22/2013 Inactive alprazolam 0.5 mg tablet RxNorm: 439128 3 Tablet(s) PO QHS No Start Date 06/06/2015 Inactive Lunesta 3 mg tablet RxNorm: 735612 1 Tablet(s) PO QHS No Start Date 0 09/20/2017 Inactive hydrocodone-acetaminophen 10 mg-325 mg Tab RxNorm: 4915052 1-2 Tablet(s) PO TID as needed for pain No Start Date 12/10/2011 Inactive Coricidin HBP Cough & Cold 4 mg-30 mg Tab RxNorm: 3358813 Tablet (s) PO PRN No Start Date 10/09/2010 Inactive Bactroban 2 % Ointment RxNorm: 067083 Application TOP QID to so res No Start Date 02/22/2012 Inactive Flonase 50 mcg/actuation Nasal [place] RxNorm: 435071 2 [place] QHS No Start Date 03/03/2014 Inactive Medication Administered No Medication Administered data Immunizations Vaccine Codes Date Status Tetanus, Diptheria, Pertussis CVX: 115 02/27/2014 Results Observation Observation Code Item Item Code Result Date S ervice Location [facility] 08666 AST 15 U/L 2019 Unknown [facility] 62359 ALT 13 U/L 2019 Unknown [facility] 48098 BUN 12 mg/dL 2019 Unknown [facility] 61931 ALBUMIN 3.9 g/dL 2019 Unknown [facility] 30385 CHLORIDE 97 mmol/L 2019 Unknown [facility] 22887 Bili Total 0.4 mg/dL 09/29 Unknown COMPREHENSIVE METABOLIC 37472 ALK PHOS 130 U/L 2019 Unknown [facility] 03273 SODIUM 136 mmol/L 09/29 Unknown [facility] MET[facility] 35740 CREATININE 0.92 mg/dL 09/11 Unknown [facility] 43869 CALCIUM 9.1 mg/dL 2019 Unknown [facility] 60489 POTASSIUM 4.4 mmol/L 09/29 Unknown [facility] 23796 Total Protein 6.2 g/dL Unknown [facility] 38151 Glucose 391 mg/dL 2019 Unknown [facility] 28252 Bicarbonate 30 mmol/L 09/11 Unknown COMPREHENSIVE METABOLIC 01646 AGAP 9 mmol/L 2019 Unknown MEAN GLUC 4078038 Calc Mean Gluc 332 mg/dL 09/29/2019 Unkn own COMPLETE BLOOD COUNT 8484593 WBC 7.0 10e9/L 09/29/19 Unknown COMPLETE BLOOD COUNT [id number] RBC 4.69 10e12/L 2019 Unknown COMPLETE BLOOD COUNT 8567991 HEMOGLOBIN 14.6 g/dL 09/29/19 Unknown COMPLETE BLOOD COUNT 0864223 HEMATOCRIT 45.2 % 09/29/19 Unknown COMPLETE BLOOD COUNT [id number] MCV 96.4 fL 0 Unknown COMPLETE BLOOD COUNT [id number] MCH 31.1 pg 0 Unknown COMPLETE BLOOD COUNT 2135420 MCHC 32.3 g/dL 0 Unknown COMPLETE BLOOD COUNT 2234040 PLATELET COUNT 209 10e9/L Unknown COMPLETE BLOOD COUNT 3203447 Mean Plt Volume 9.8 fL Unknown COMPLETE BLOOD COUNT 8610335 Neut Auto 48.1 % 0 Unknown COMPLETE BLOOD COUNT 0196181 Lymph Auto 36.5 % 09/29/19 20 Unknown COMPLETE BLOOD COUNT 4228498 [place]cock Auto 8.6 % 0 Unknown COMPLETE BLOOD COUNT 0990336 RDW 13.4 % 0 Unknown COMPLETE BLOOD COUNT 4388255 Eos Auto 6.5 % 0 Unknown COMPLETE BLOOD COUNT 0525809 Baso Auto 0.3 % 0 Unknown COMPLETE BLOOD COUNT 7891873 Neutrophil Abs 3.37 10e9/L Unknown COMPLETE BLOOD COUNT [id number] Lymphocyte Abs 2.56 10e9/L Unknown COMPLETE BLOOD COUNT 8500678 Monocyte Abs 0.60 10e9/L 09/11 Unknown COMPLETE BLOOD COUNT 4198722 Eosinophil Abs 0.46 10e9/L Unknown COMPLETE BLOOD COUNT 4378183 RDW-SD 45.9 fL 0 Unknown COMPLETE BLOOD COUNT 8495128 Basophil Abs 0.02 10e9/L 09/11 Unknown [facility] 84743 Cholesterol 248 mg/dL 09/29/2019 Unkno wn LIPID GROUP 41691 Triglyceride 898 mg/dL 09/29/2019 Unkn own LIP[facility] GROUP 63157 HDL CHOLESTEROL 41 mg/dL 09/29/2019 U nknown L[facility] 90643 Chol/HDL Ratio 6.05 ratio 09/29/2019 U nknown L[facility] 21523 NON-HDL Chol 207 mg/dL 09/29/2019 Unkn own LIP[facility] GROUP 75765 LDL Cholesterol N/A Trig >400 020 Unknown GLYCOSYLATED HEMOGLOBIN TEST 16750 Hgb A1c 01510-9 13.2 % 0 09/29/2019 Unknown FREE T4 65996 T4 Free 0.75 ng/dL 09/29/2019 Unknown GFR CALC 0804797 GFR Non Afr Amr >60 mL/min 09/29/2019 Un known GFR CALC 2599636 GFR Afr Amr >60 mL/min 09/29/2019 Unknow n THYROID STIMULATING HORMONE 88128 TSH 4.245 uIU/mL 09/29/2019 Unknown COMPLETE BLOOD COUNT 4240425 WBC 10.7 10e9/L 018 Unknown COMPLETE BLOOD COUNT 6013489 RBC 4.59 10e12/L 2017 Unknown COMPLETE BLOOD COUNT 1220011 HEMOGLOBIN 14.8 g/dL 12/11/19 18 Unknown COMPLETE BLOOD COUNT 7170519 HEMATOCRIT 44.9 % 12/11/19 18 Unknown COMPLETE BLOOD COUNT 8786363 MCV 97.8 fL 8 Unknown COMPLETE BLOOD COUNT 7239824 MCH 32.2 pg 8 Unknown COMPLETE BLOOD COUNT 9749349 MCHC 33.0 g/dL 8 Unknown COMPLETE BLOOD COUNT 8773562 PLATELET COUNT 261 10e9/L 10/2017 Unknown COMPLETE BLOOD COUNT 8103212 Mean Plt Volume 9.5 fL 10/2017 Unknown COMPLETE BLOOD COUNT 9507871 Neut Auto 59.9 % 8 Unknown COMPLETE BLOOD COUNT 0374547 Lymph Auto 27.4 % 12/11/19 18 Unknown COMPLETE BLOOD COUNT 4650985 [place]cock Auto 8.2 % 8 Unknown COMPLETE BLOOD COUNT 4702527 RDW 13.3 % 8 Unknown COMPLETE BLOOD COUNT 8416756 Eos Auto 4.1 % 8 Unknown COMPLETE BLOOD COUNT 0866848 Baso Auto 0.4 % 8 Unknown COMPLETE BLOOD COUNT 3737689 Neutrophil Abs 6.41 10e9/L Unknown COMPLETE BLOOD COUNT 6177058 Lymphocyte Abs 2.93 10e9/L Unknown COMPLETE BLOOD COUNT 6270440 Monocyte Abs 0.88 10e9/L 10/2017 Unknown COMPLETE BLOOD COUNT 5671468 Eosinophil Abs 0.44 10e9/L Unknown COMPLETE BLOOD COUNT 0514861 RDW-SD 46.2 fL 8 Unknown COMPLETE BLOOD COUNT 6753879 Basophil Abs 0.04 10e9/L 10/2017 Unknown THYROID STIMULATING HORMONE 41381 TSH 4.015 uIU/mL 12/10/2017 Unknown COMPREHENSIVE METABOLIC 16567 AST 25 U/L 2017 Unknown COMPREHENSIVE METABOLIC 67031 ALT 17 U/L 2017 Unknown COMPREHENSIVE METABOLIC 14352 BUN 19 mg/dL 2017 Unknown COMPREHENSIVE METABOLIC 12827 ALBUMIN 4.0 g/dL 2017 Unknown COMPREHENSIVE METABOLIC 40837 CHLORIDE 91 mmol/L 2017 Unknown COMPREHENSIVE METABOLIC 51572 Bili Total 0.5 mg/dL 12/10 Unknown COMPREHENSIVE METABOLIC 37523 ALK PHOS 75 U/L 2017 Unknown COMPREHENSIVE METABOLIC 41534 SODIUM 136 mmol/L 12/10 Unknown COMPREHENSIVE METABOLIC 32446 CREATININE 1.05 mg/dL 10/2017 Unknown COMPREHENSIVE METABOLIC 33395 CALCIUM 8.9 mg/dL 2017 Unknown COMPREHENSIVE METABOLIC 21041 POTASSIUM 3.4 mmol/L 12/10 Unknown COMPREHENSIVE METABOLIC 70289 Total Protein 6.5 g/dL Unknown COMPREHENSIVE METABOLIC 54624 Glucose 138 mg/dL 2017 Unknown COMPREHENSIVE METABOLIC 20032 Bicarbonate 35 mmol/L 10/2017 Unknown COMPREHENSIVE METABOLIC 92870 AGAP 10 mmol/L 2017 Unknown MEAN GLUC 3172765 Calc Mean Gluc 171 mg/dL 12/10/2017 Unkn own LIP[facility] GROUP 43497 Cholesterol 204 mg/dL 12/10/2017 Unkno wn LIP[facility] GROUP 87494 Triglyceride 411 mg/dL 12/10/2017 Unkn own L[facility] 51746 HDL CHOLESTEROL 50 mg/dL 12/10/2017 U nknown LIP[facility] GROUP 19704 Chol/HDL Ratio 4.08 ratio 12/10/2017 U nknown L[facility] 45463 NON-HDL Chol 154 mg/dL 12/10/2017 Unkn own LIP[facility] GROUP 64425 LDL Cholesterol N/A Trig >400 018 Unknown GLYCOSYLATED HEMOGLOBIN TEST 58640 Hgb A1c 78003-8 7.6 % 0 12/10/2017 Unknown FREE T4 18267 T4 Free 1.40 ng/dL 12/10/2017 Unknown GFR CALC 5131753 GFR Non Afr Amr 55 mL/min 12/10/2017 Unk nown GFR CALC 0595391 GFR Afr Amr >60 mL/min 12/10/2017 Unknow n GFR CALC 4077075 GFR Non Afr Amr 48 mL/min 06/28/2017 Unk nown GFR CALC 3980736 GFR Afr Amr 59 mL/min 06/28/2017 Unknown COMPREHENSIVE METABOLIC 49757 AST 32 U/L 2016 Unknown COMPREHENSIVE METABOLIC 00787 ALT 22 U/L 2016 Unknown COMPREHENSIVE METABOLIC 64739 BUN 23 mg/dL 2016 Unknown COMPREHENSIVE METABOLIC 20358 ALBUMIN 4.7 g/dL 2016 Unknown COMPREHENSIVE METABOLIC 59660 CHLORIDE 89 mmol/L 2016 Unknown COMPREHENSIVE METABOLIC 45754 Bili Total 0.5 mg/dL 06/28 Unknown COMPREHENSIVE METABOLIC 09319 ALK PHOS 90 U/L 2016 Unknown COMPREHENSIVE METABOLIC 05648 SODIUM 135 mmol/L 06/28 Unknown COMPREHENSIVE METABOLIC 78194 CREATININE 1.18 mg/dL 06/10 Unknown COMPREHENSIVE METABOLIC 79205 CALCIUM 9.7 mg/dL 2016 Unknown COMPREHENSIVE METABOLIC 62959 POTASSIUM 3.5 mmol/L 06/28 Unknown COMPREHENSIVE METABOLIC 77070 Total Protein 7.7 g/dL Unknown [facility] MET[facility]OL[facility] 13431 Glucose 129 mg/dL 2016 Unknown COMPREHENSIVE METABOLIC 15447 Bicarbonate 34 mmol/L 06/10 Unknown COMPREHENSIVE METABOLIC 77588 AGAP 12 mmol/L 2016 Unknown [facility] 50056 HDL TEST 64 MG/DL 08/27/2014 Unknown [facility] 14456 TRIG 222 MG/DL 08/27/2014 Unknown [facility] 60080 TEST LDL 209 MG/DL 08/27/2014 Unknown [facility] 14002 CHOL 317 MG/DL 08/27/2014 Unknown [facility] 78325 RCHOL/HDL 4.95 RATIO 08/27/2014 Unknow n L[facility] 84324 NON-HDL CH 253 MG/DL 08/27/2014 Unknow n GFR CALC 0418788 GFR AA >60 ML/MIN 08/27/2014 Unknown GFR CALC 3797363 GFR NON-AA >60 ML/MIN 08/27/2014 Unknown COMPLETE BLOOD COUNT 8777035 WBC 7.0 10e9/L 08/27/20 14 Unknown COMPLETE BLOOD COUNT 7500082 RBC 4.98 10e12/L 2013 Unknown COMPLETE BLOOD COUNT 7029133 HGB 15.6 g/dL 4 Unknown COMPLETE BLOOD COUNT 4709742 HCT DET 46.5 % 4 Unknown COMPLETE BLOOD COUNT 8201826 MCV 93.4 fL 4 Unknown COMPLETE BLOOD COUNT 4236597 MCH 31.3 pg 4 Unknown COMPLETE BLOOD COUNT 0196404 MCHC 33.5 g/dL 4 Unknown COMPLETE BLOOD COUNT 4660331 PLT 309 10e9/L 08/27/20 14 Unknown COMPLETE BLOOD COUNT 3598742 MPV 9.6 fL 4 Unknown COMPLETE BLOOD COUNT 2006453 CADEN % 57.2 % 4 Unknown COMPLETE BLOOD COUNT 6491314 LY % 33.2 % 4 Unknown COMPLETE BLOOD COUNT 3795987 MON % 7.3 % 4 Unknown COMPLETE BLOOD COUNT 2249220 EOS % 2.0 % 4 Unknown COMPLETE BLOOD COUNT 6603479 BASO % 0.3 % 4 Unknown COMPLETE BLOOD COUNT 4957646 RDW 13.7 % 4 Unknown COMPLETE BLOOD COUNT 1508597 ABS CADEN 4.00 10e9/L 014 Unknown COMPLETE BLOOD COUNT 2370226 ABS LYMPH 2.32 10e9/L 014 Unknown COMPLETE BLOOD COUNT 3165922 ABS MONO 0.51 10e9/L 014 Unknown COMPLETE BLOOD COUNT 3182417 ABS EOS 0.14 10e9/L 014 Unknown COMPLETE BLOOD COUNT 5938728 ABS BASO 0.02 10e9/L 014 Unknown COMPLETE BLOOD COUNT 9282570 RDW-SD 45.1 fL 4 Unknown COMPREHENSIVE METABOLIC 11576 AST 13 U/L 2013 Unknown COMPREHENSIVE METABOLIC 29153 ALT 11 IU/L 2013 Unknown COMPREHENSIVE METABOLIC 39151 BUN 23 MG/DL 2013 Unknown COMPREHENSIVE METABOLIC 80707 ALBUMIN 4.4 GM/DL 2013 Unknown COMPREHENSIVE METABOLIC 57034 CHLORIDE 99 MMOL/L 2013 Unknown COMPREHENSIVE METABOLIC 48192 BILI TOT 0.5 MG/DL 2013 Unknown COMPREHENSIVE METABOLIC 48030 ALK PHOS 56 U/L 2013 Unknown COMPREHENSIVE METABOLIC 34380 SODIUM 138 MMOL/L 08/27 Unknown COMPREHENSIVE METABOLIC 67967 CREATININE 0.95 MG/DL 08/10 Unknown COMPREHENSIVE METABOLIC 96653 CALCIUM 9.8 MG/DL 2013 Unknown COMPREHENSIVE METABOLIC 54899 POTASSIUM 3.5 MMOL/L 08/27 Unknown COMPREHENSIVE METABOLIC 52923 PROT TOT 6.8 GM/DL 2013 Unknown COMPREHENSIVE METABOLIC 97410 Glucose 90 MG/DL 2013 Unknown COMPREHENSIVE METABOLIC 27081 BICARB 34 MMOL/L 2013 Unknown COMPREHENSIVE METABOLIC 18451 ANION GAP 5 MEQ/L 2013 Unknown LIPASE 34960 LIPASE 11 IU/L 07/21/2014 Unknown AMYLASE 68707 AMYLASE 39 IU/L 07/21/2014 Unknown HEMOGLOBIN A1C (GLYCOSYLATED) 1480936 A1C HPLC 44555-7 6.2 % 03/05/2013 Unknown THYROID STIMULATING HORMONE 08729 TSH 6.986 uIU/ML 03/05/2013 Unknown COMPLETE BLOOD COUNT 1190376 WBC 12.7 10e9/L 013 Unknown COMPLETE BLOOD COUNT 7519212 RBC 4.53 10e12/L 2012 Unknown COMPLETE BLOOD COUNT 5212522 HGB 14.7 g/dL 3 Unknown COMPLETE BLOOD COUNT 6799587 HCT DET 43.1 % 3 Unknown COMPLETE BLOOD COUNT 8184295 MCV 95.1 fL 3 Unknown COMPLETE BLOOD COUNT 4492756 MCH 32.5 pg 3 Unknown COMPLETE BLOOD COUNT 3264347 MCHC 34.1 g/dL 3 Unknown COMPLETE BLOOD COUNT 5923856 PLT 346 10e9/L 03/05/20 13 Unknown COMPLETE BLOOD COUNT 8639364 MPV 9.5 fL 3 Unknown COMPLETE BLOOD COUNT 9017153 CADEN % 67.6 % 3 Unknown COMPLETE BLOOD COUNT 1985696 LY % 22.1 % 3 Unknown COMPLETE BLOOD COUNT 8004190 MON % 6.6 % 3 Unknown COMPLETE BLOOD COUNT 2901002 EOS % 3.3 % 3 Unknown COMPLETE BLOOD COUNT 7911192 BASO % 0.4 % 3 Unknown COMPLETE BLOOD COUNT 3962226 RDW 14.0 % 3 Unknown COMPLETE BLOOD COUNT 9197213 ABS CADEN 8.59 10e9/L 013 Unknown COMPLETE BLOOD COUNT 6002254 ABS LYMPH 2.81 10e9/L 013 Unknown COMPLETE BLOOD COUNT 0514450 ABS MONO 0.84 10e9/L 013 Unknown COMPLETE BLOOD COUNT 1557368 ABS EOS 0.42 10e9/L 013 Unknown COMPLETE BLOOD COUNT 0814927 ABS BASO 0.05 10e9/L 013 Unknown COMPLETE BLOOD COUNT 6900967 RDW-SD 46.0 fL 3 Unknown FREE T4 36206 FREE T4 1.14 NG/DL 03/05/2013 Unknown COMPREHENSIVE METABOLIC 86680 AST 17 U/L 2012 Unknown COMPREHENSIVE METABOLIC 09021 ALT 12 IU/L 2012 Unknown COMPREHENSIVE METABOLIC 50533 BUN 24 MG/DL 2012 Unknown COMPREHENSIVE METABOLIC 64909 ALBUMIN 4.2 GM/DL 2012 Unknown COMPREHENSIVE METABOLIC 82108 CHLORIDE 93 MMOL/L 2012 Unknown COMPREHENSIVE METABOLIC 07166 BILI TOT 0.5 MG/DL 2012 Unknown COMPREHENSIVE METABOLIC 26731 ALK PHOS 75 U/L 2012 Unknown COMPREHENSIVE METABOLIC 00782 SODIUM 141 MMOL/L 03/05 Unknown COMPREHENSIVE METABOLIC 80237 CREATININE 1.36 MG/DL 02/09 Unknown COMPREHENSIVE METABOLIC 43395 CALCIUM 9.2 MG/DL 2012 Unknown COMPREHENSIVE METABOLIC 79367 POTASSIUM 3.1 MMOL/L 03/05 Unknown COMPREHENSIVE METABOLIC 90027 PROT TOT 6.9 GM/DL 2012 Unknown COMPREHENSIVE METABOLIC 54524 Glucose 123 MG/DL 2012 Unknown COMPREHENSIVE METABOLIC 26926 BICARB 36 MMOL/L 2012 Unknown COMPREHENSIVE METABOLIC 24638 ANION GAP 12 MEQ/L 2012 Unknown GFR CALC 3350482 GFR AA 51.0L ML/MIN 03/05/2013 Unknow n GFR CALC 9266579 GFR NON-AA 42.0L ML/MIN 03/05/2013 Unkno wn COMPREHENSIVE METABOLIC 37760 AST 14 U/L 2012 Unknown COMPREHENSIVE METABOLIC 73850 ALT 11 IU/L 2012 Unknown COMPREHENSIVE METABOLIC 89659 BUN 16 MG/DL 2012 Unknown COMPREHENSIVE METABOLIC 59015 ALBUMIN 4.2 GM/DL 2012 Unknown COMPREHENSIVE METABOLIC 71610 CHLORIDE 98 MMOL/L 2012 Unknown COMPREHENSIVE METABOLIC 73855 BILI TOT 0.4 MG/DL 2012 Unknown COMPREHENSIVE METABOLIC 94781 ALK PHOS 77 U/L 2012 Unknown COMPREHENSIVE METABOLIC 93432 SODIUM 139 MMOL/L 09/25 Unknown COMPREHENSIVE METABOLIC 56655 CREATININE 0.86 MG/DL 09/10 Unknown COMPREHENSIVE METABOLIC 69873 CALCIUM 9.5 MG/DL 2012 Unknown COMPREHENSIVE METABOLIC 72516 POTASSIUM 3.8 MMOL/L 09/25 Unknown COMPREHENSIVE METABOLIC 78810 PROT TOT 6.8 GM/DL 2012 Unknown COMPREHENSIVE METABOLIC 25082 Glucose 91 MG/DL 2012 Unknown COMPREHENSIVE METABOLIC 05363 BICARB 32 MMOL/L 2012 Unknown COMPREHENSIVE METABOLIC 44820 ANION GAP 9 MEQ/L 2012 Unknown FREE T4 16241 FREE T4 0.98 NG/DL 09/25/2012 Unknown THYROID STIMULATING HORMONE 08134 TSH 1.736 uIU/ML 09/25/2012 Unknown C-REACTIVE PROTEIN (CRP) QUANT 36547 CRP 2.3 MG/DL 09/25/2012 Unknown COMPLETE BLOOD COUNT 2210386 WBC 11.9 10e9/L 013 Unknown COMPLETE BLOOD COUNT 0315785 RBC 4.87 10e12/L 2012 Unknown COMPLETE BLOOD COUNT 4048415 HGB 15.1 g/dL 3 Unknown COMPLETE BLOOD COUNT 3523726 HCT DET 44.8 % 3 Unknown COMPLETE BLOOD COUNT 2619120 MCV 92.0 fL 3 Unknown COMPLETE BLOOD COUNT 7886376 MCH 31.0 pg 3 Unknown COMPLETE BLOOD COUNT 2246070 MCHC 33.7 g/dL 3 Unknown COMPLETE BLOOD COUNT 0105577 PLT 343 10e9/L 09/25/19 13 Unknown COMPLETE BLOOD COUNT 4612552 MPV 9.0 fL 3 Unknown COMPLETE BLOOD COUNT 9244144 CADEN % 68.2 % 3 Unknown COMPLETE BLOOD COUNT 6524000 LY % 22.4 % 3 Unknown COMPLETE BLOOD COUNT 1208540 MON % 6.4 % 3 Unknown COMPLETE BLOOD COUNT 6318040 EOS % 2.7 % 3 Unknown COMPLETE BLOOD COUNT 3211013 BASO % 0.3 % 3 Unknown COMPLETE BLOOD COUNT 2627484 RDW 13.8 % 3 Unknown COMPLETE BLOOD COUNT 9007777 ABS CADEN 8.12 10e9/L 013 Unknown COMPLETE BLOOD COUNT 9380639 ABS LYMPH 2.67 10e9/L 013 Unknown COMPLETE BLOOD COUNT 6926006 ABS MONO 0.76 10e9/L 013 Unknown COMPLETE BLOOD COUNT 2665898 ABS EOS 0.32 10e9/L 013 Unknown COMPLETE BLOOD COUNT 9426519 ABS BASO 0.04 10e9/L 013 Unknown COMPLETE BLOOD COUNT 0663592 RDW-SD 45.6 fL 3 Unknown GFR CALC 0953205 GFR AA >60 ML/MIN 09/25/2012 Unknown GFR CALC 4645540 GFR NON-AA >60 ML/MIN 09/25/2012 Unknown ERYTHROCYTE SEDIMENTATION RATE 33765 ESR 19 MM/HR 05/06/2012 Unknown VITAMIN B 12 FOLIC ACID 34804|37113 VIT B 12 922 PG/ML 04/11 Unknown VITAMIN B 12 FOLIC ACID 04124|89574 FOLIC ACID 13.6 NG/ML Unknown URIC ACID 81103 URIC ACID 7.8 MG/DL 05/06/2012 Unknown COMPLETE BLOOD COUNT 04538 WBC 11.9 10e9/L 012 Unknown COMPLETE BLOOD COUNT 62303 RBC 5.30 10e12/L 2011 Unknown COMPLETE BLOOD COUNT 97114 HGB 16.6 g/dL 2 Unknown COMPLETE BLOOD COUNT 59869 HCT DET 47.2 % 2 Unknown COMPLETE BLOOD COUNT 38963 MCV 89.1 fL 2 Unknown COMPLETE BLOOD COUNT 21882 MCH 31.3 pg 2 Unknown COMPLETE BLOOD COUNT 58121 MCHC 35.2 g/dL 2 Unknown COMPLETE BLOOD COUNT 71267 PLT 362 10e9/L 05/06/20 12 Unknown COMPLETE BLOOD COUNT 77352 MPV 9.4 fL 2 Unknown COMPLETE BLOOD COUNT 40094 CADEN % 68.2 % 2 Unknown COMPLETE BLOOD COUNT 98604 LY % 22.0 % 2 Unknown COMPLETE BLOOD COUNT 25957 MON % 6.9 % 2 Unknown COMPLETE BLOOD COUNT 71355 EOS % 2.6 % 2 Unknown COMPLETE BLOOD COUNT 27429 BASO % 0.3 % 2 Unknown COMPLETE BLOOD COUNT 79356 RDW 12.8 % 2 Unknown COMPLETE BLOOD COUNT 97751 ABS CADEN 8.12 10e9/L 012 Unknown COMPLETE BLOOD COUNT 58199 ABS LYMPH 2.62 10e9/L 012 Unknown COMPLETE BLOOD COUNT 85604 ABS MONO 0.82 10e9/L 012 Unknown COMPLETE BLOOD COUNT 27337 ABS EOS 0.31 10e9/L 012 Unknown COMPLETE BLOOD COUNT 03372 ABS BASO 0.04 10e9/L 012 Unknown COMPLETE BLOOD COUNT 41382 RDW-SD 41.5 fL 2 Unknown GFR CALC 7157322 GFR AA >60 ML/MIN 05/06/2012 Unknown GFR CALC 9035263 GFR NON-AA 58.0L ML/MIN 05/06/2012 Unkno wn FREE T4 14478 FREE T4 1.15 NG/DL 05/06/2012 Unknown THYROID STIMULATING HORMONE 18657 TSH 1.568 uIU/ML 05/06/2012 Unknown COMPREHENSIVE METABOLIC 82712 AST 20 U/L 2011 Unknown COMPREHENSIVE METABOLIC 48715 ALT 12 IU/L 2011 Unknown COMPREHENSIVE METABOLIC 05167 BUN 20 MG/DL 2011 Unknown COMPREHENSIVE METABOLIC 29049 ALBUMIN 4.5 GM/DL 2011 Unknown COMPREHENSIVE METABOLIC 96504 CHLORIDE 91 MMOL/L 2011 Unknown COMPREHENSIVE METABOLIC 05316 BILI TOT 0.4 MG/DL 2011 Unknown COMPREHENSIVE METABOLIC 85711 ALK PHOS 73 U/L 2011 Unknown COMPREHENSIVE METABOLIC 95146 SODIUM 139 MMOL/L 05/06 Unknown COMPREHENSIVE METABOLIC 52460 CREATININE 1.02 MG/DL 04/11 Unknown COMPREHENSIVE METABOLIC 73098 CALCIUM 9.7 MG/DL 2011 Unknown COMPREHENSIVE METABOLIC 01860 POTASSIUM 3.1 MMOL/L 05/06 Unknown COMPREHENSIVE METABOLIC 44026 PROT TOT 7.3 GM/DL 2011 Unknown COMPREHENSIVE METABOLIC 62242 Glucose 118 MG/DL 2011 Unknown COMPREHENSIVE METABOLIC 07132 BICARB 33 MMOL/L 2011 Unknown COMPREHENSIVE METABOLIC 38493 ANION GAP 15 MEQ/L 2011 Unknown Procedures Procedure Codes Date ROUTINE VENIPUNCTURE CPT-4: 87796 09/29/2019 URINALYSIS NONAUTO W/O SCOPE CPT-4: 65706 09/29/2019 COMPREHEN METABOLIC PANEL CPT-4: 31304 09/29/2019 LIPID PANEL CPT-4: 48712 09/29/2019 A1C HPLC CPT-4: 66767 09/29/2019 ASSAY OF FREE THYROXINE CPT-4: 79564 09/29/2019 ASSAY THYROID STIM HORMONE CPT-4: 20681 09/29/2019 COMPLETE CBC W/AUTO DIFF WBC CPT-4: 64936 09/29/2019 URINALYSIS NONAUTO W/O SCOPE CPT-4: 54067 09/30/2018 MICROALBUMIN QUANTITATIVE CPT-4: 90833 09/30/2018 CEFTRIAXONE SODIUM INJECTION CPT-4: J0696 06/19/2018 THER/PROPH/DIAG INJ SC/IM CPT-4: 25331 06/19/2018 CEFTRIAXONE SODIUM INJECTION CPT-4: J0696 06/17/2018 THER/PROPH/DIAG INJ SC/IM CPT-4: 91597 06/17/2018 THER/PROPH/DIAG INJ SC/IM CPT-4: 19415 05/16/2018 KETOROLAC TROMETHAMINE INJ CPT-4: J1885 05/16/2018 ONDANSETRON HCL INJECTION CPT-4: J2405 05/16/2018 THER/PROPH/DIAG INJ SC/IM CPT-4: 15202 05/16/2018 ROUTINE VENIPUNCTURE CPT-4: 46578 03/20/2018 COMPREHEN METABOLIC PANEL CPT-4: 23095 03/20/2018 DEXAMETHASONE SODIUM PHOS CPT-4: J1100 02/11/2018 THER/PROPH/DIAG INJ SC/IM CPT-4: 12325 02/11/2018 TRIAMCINOLONE ACET INJ NOS CPT-4: J3301 02/11/2018 CEFTRIAXONE SODIUM INJECTION CPT-4: J0696 02/01/2018 THER/PROPH/DIAG INJ SC/IM CPT-4: 86058 02/01/2018 CEFTRIAXONE SODIUM INJECTION CPT-4: J0696 01/30/2018 THER/PROPH/DIAG INJ SC/IM CPT-4: 28845 01/30/2018 ROUTINE VENIPUNCTURE CPT-4: 20480 12/10/2017 ASSAY OF FREE THYROXINE CPT-4: 02191 12/10/2017 ASSAY THYROID STIM HORMONE CPT-4: 47044 12/10/2017 COMPREHEN METABOLIC PANEL CPT-4: 87151 12/10/2017 COMPLETE CBC W/AUTO DIFF WBC CPT-4: 82100 12/10/2017 LIPID PANEL CPT-4: 09277 12/10/2017 A1C HPLC CPT-4: 26551 12/10/2017 CEFTRIAXONE SODIUM INJECTION CPT-4: J0696 12/10/2017 THER/PROPH/DIAG INJ SC/IM CPT-4: 74129 12/10/2017 CEFTRIAXONE SODIUM INJECTION CPT-4: J0696 12/07/2017 THER/PROPH/DIAG INJ SC/IM CPT-4: 71578 12/07/2017 DEXAMETHASONE SODIUM PHOS CPT-4: J1100 12/07/2017 THER/PROPH/DIAG INJ SC/IM CPT-4: 05984 12/07/2017 CEFTRIAXONE SODIUM INJECTION CPT-4: J0696 10/08/2017 THER/PROPH/DIAG INJ SC/IM CPT-4: 53750 10/08/2017 CEFTRIAXONE SODIUM INJECTION CPT-4: J0696 09/21/2017 THER/PROPH/DIAG INJ SC/IM CPT-4: 92351 09/21/2017 CEFTRIAXONE SODIUM INJECTION CPT-4: J0696 09/20/2017 THER/PROPH/DIAG INJ SC/IM CPT-4: 26590 09/20/2017 REMOVAL OF NAIL PLATE CPT-4: 18203 08/29/2017 THER/PROPH/DIAG INJ SC/IM CPT-4: 71454 08/29/2017 TRIAMCINOLONE ACET INJ NOS CPT-4: J3301 08/29/2017 CEFTRIAXONE SODIUM INJECTION CPT-4: J0696 08/29/2017 THER/PROPH/DIAG INJ SC/IM CPT-4: 93966 08/29/2017 DESTRUCT PREMALG LESION (Cryosurgery) CPT-4: 85858 ROUTINE VENIPUNCTURE CPT-4: 79943 06/27/2017 ASSAY OF FREE THYROXINE CPT-4: 17965 06/27/2017 ASSAY THYROID STIM HORMONE CPT-4: 80371 06/27/2017 COMPREHEN METABOLIC PANEL CPT-4: 18059 06/27/2017 COMPLETE CBC W/AUTO DIFF WBC CPT-4: 26603 06/27/2017 EXC TR-EXT B9+REECE 0.5 CM< CPT-4: 69117 01/24/2017 THER/PROPH/DIAG INJ SC/IM CPT-4: 85229 08/02/2016 DEXAMETHASONE SODIUM PHOS CPT-4: J1100 08/02/2016 DESTRUCT PREMALG LESION (Cryosurgery) CPT-4: 84140 EXC TR-EXT B9+REECE 0.5 CM< CPT-4: 19426 08/01/2016 AEROBIC WOUND CULTURE & STN CPT-4: 38422 07/06/2016 CEFTRIAXONE SODIUM INJECTION CPT-4: J0696 05/25/2016 THER/PROPH/DIAG INJ SC/IM CPT-4: 43576 05/25/2016 THER/PROPH/DIAG INJ SC/IM CPT-4: 70182 04/26/2016 DEXAMETHASONE SODIUM PHOS CPT-4: J1100 04/26/2016 CEFTRIAXONE SODIUM INJECTION CPT-4: J0696 04/26/2016 THER/PROPH/DIAG INJ SC/IM CPT-4: 79231 04/26/2016 THER/PROPH/DIAG INJ SC/IM CPT-4: 48870 02/09/2016 TRIAMCINOLONE ACET INJ NOS CPT-4: J3301 02/09/2016 URINALYSIS NONAUTO W/O SCOPE CPT-4: 29838 01/24/2016 URINE CULTURE/ COLONY COUNT CPT-4: 74377 01/24/2016 THER/PROPH/DIAG INJ SC/IM CPT-4: 62992 12/08/2015 TRIAMCINOLONE ACET INJ NOS CPT-4: J3301 12/08/2015 THER/PROPH/DIAG INJ SC/IM CPT-4: 93294 10/07/2015 TRIAMCINOLONE ACET INJ NOS CPT-4: J3301 10/07/2015 DESTRUCT PREMALG LESION (Cryosurgery) CPT-4: 59494 THER/PROPH/DIAG INJ SC/IM CPT-4: 74989 03/16/2015 METHYLPREDNISOLONE 40 MG INJ CPT-4: J1030 03/16/2015 DESTRUCT PREMALG LESION (Cryosurgery) CPT-4: 93746 THER/PROPH/DIAG INJ SC/IM CPT-4: 29000 09/11/2014 METHYLPREDNISOLONE 40 MG INJ CPT-4: J1030 09/11/2014 TRIAMCINOLONE ACET INJ NOS CPT-4: J3301 09/11/2014 CEFTRIAXONE SODIUM INJECTION CPT-4: J0696 09/11/2014 THER/PROPH/DIAG INJ SC/IM CPT-4: 95364 09/11/2014 ROUTINE VENIPUNCTURE CPT-4: 48874 08/27/2014 COMPREHEN METABOLIC PANEL CPT-4: 29885 08/27/2014 COMPLETE CBC W/AUTO DIFF WBC CPT-4: 22782 08/27/2014 LIPID PANEL CPT-4: 37640 08/27/2014 ROUTINE VENIPUNCTURE CPT-4: 54796 07/21/2014 ASSAY OF AMYLASE CPT-4: 27638 07/21/2014 ASSAY OF LIPASE CPT-4: 04381 07/21/2014 THER/PROPH/DIAG INJ SC/IM CPT-4: 26291 07/15/2014 TRIAMCINOLONE ACET INJ NOS CPT-4: J3301 07/15/2014 ROUTINE VENIPUNCTURE CPT-4: 51683 05/14/2014 ASSAY OF FREE THYROXINE CPT-4: 21724 05/14/2014 ASSAY THYROID STIM HORMONE CPT-4: 41349 05/14/2014 COMPREHEN METABOLIC PANEL CPT-4: 82785 05/14/2014 COMPLETE CBC W/AUTO DIFF WBC CPT-4: 30745 05/14/2014 LIPID PANEL CPT-4: 80224 05/14/2014 CEFTRIAXONE SODIUM INJECTION CPT-4: J0696 04/21/2014 THER/PROPH/DIAG INJ SC/IM CPT-4: 87379 04/21/2014 THER/PROPH/DIAG INJ SC/IM CPT-4: 03007 04/21/2014 TRIAMCINOLONE ACET INJ NOS CPT-4: J3301 04/21/2014 THER/PROPH/DIAG INJ SC/IM CPT-4: 50478 03/04/2014 METHYLPREDNISOLONE 40 MG INJ CPT-4: J1030 03/04/2014 TRIAMCINOLONE ACET INJ NOS CPT-4: J3301 03/04/2014 CEFTRIAXONE SODIUM INJECTION CPT-4: J0696 03/04/2014 THER/PROPH/DIAG INJ SC/IM CPT-4: 76912 03/04/2014 TDAP VACCINE 7 YRS/> IM CPT-4: 89350 02/27/2014 IMMUNIZATION ADMIN CPT-4: 98765 02/27/2014 DESTRUCT PREMALG LESION (Cryosurgery) CPT-4: 70750 DESTRUCT PREMALG LES 2-14 CPT-4: 51687 01/13/2014 THER/PROPH/DIAG INJ SC/IM CPT-4: 66654 10/21/2013 METHYLPREDNISOLONE 40 MG INJ CPT-4: J1030 10/21/2013 TRIAMCINOLONE ACET INJ NOS CPT-4: J3301 10/21/2013 CEFTRIAXONE SODIUM INJECTION CPT-4: J0696 08/27/2013 THER/PROPH/DIAG INJ SC/IM CPT-4: 37692 08/27/2013 THER/PROPH/DIAG INJ SC/IM CPT-4: 99478 08/27/2013 METHYLPREDNISOLONE 40 MG INJ CPT-4: J1030 08/27/2013 TRIAMCINOLONE ACET INJ NOS CPT-4: J3301 08/27/2013 THER/PROPH/DIAG INJ SC/IM CPT-4: 31014 06/23/2013 METHYLPREDNISOLONE 40 MG INJ CPT-4: J1030 06/23/2013 TRIAMCINOLONE ACET INJ NOS CPT-4: J3301 06/23/2013 THER/PROPH/DIAG INJ SC/IM CPT-4: 08116 05/26/2013 METHYLPREDNISOLONE 40 MG INJ CPT-4: J1030 05/26/2013 TRIAMCINOLONE ACET INJ NOS CPT-4: J3301 05/26/2013 ROUTINE VENIPUNCTURE CPT-4: 91684 03/05/2013 ASSAY OF FREE THYROXINE CPT-4: 30510 03/05/2013 ASSAY THYROID STIM HORMONE CPT-4: 92900 03/05/2013 COMPREHEN METABOLIC PANEL CPT-4: 65702 03/05/2013 COMPLETE CBC W/AUTO DIFF WBC CPT-4: 32523 03/05/2013 A1C GLYCOSYLATED HEMOGLOBIN TEST CPT-4: 11232 013 DRAIN/INJECT JOINT/BURSA CPT-4: 82904 12/04/2012 METHYLPREDNISOLONE 40 MG INJ CPT-4: J1030 12/04/2012 TRIAMCINOLONE ACET INJ NOS CPT-4: J3301 12/04/2012 CEFTRIAXONE SODIUM INJECTION CPT-4: J0696 11/21/2012 THER/PROPH/DIAG INJ SC/IM CPT-4: 75126 11/21/2012 THER/PROPH/DIAG INJ SC/IM CPT-4: 97940 10/14/2012 METHYLPREDNISOLONE 40 MG INJ CPT-4: J1030 10/14/2012 TRIAMCINOLONE ACET INJ NOS CPT-4: J3301 10/14/2012 URINALYSIS NONAUTO W/O SCOPE CPT-4: 44842 09/27/2012 ROUTINE VENIPUNCTURE CPT-4: 70819 09/25/2012 ASSAY OF FREE THYROXINE CPT-4: 81961 09/25/2012 ASSAY THYROID STIM HORMONE CPT-4: 57638 09/25/2012 COMPREHEN METABOLIC PANEL CPT-4: 07964 09/25/2012 COMPLETE CBC W/AUTO DIFF WBC CPT-4: 16022 09/25/2012 C-REACTIVE PROTEIN CPT-4: 73956 09/25/2012 THER/PROPH/DIAG INJ SC/IM CPT-4: 38482 08/29/2012 METHYLPREDNISOLONE 40 MG INJ CPT-4: J1030 08/29/2012 TRIAMCINOLONE ACET INJ NOS CPT-4: J3301 08/29/2012 DESTRUCT PREMALG LESION (Cryosurgery) CPT-4: 52226 THER/PROPH/DIAG INJ SC/IM CPT-4: 71207 05/06/2012 METHYLPREDNISOLONE 40 MG INJ CPT-4: J1030 05/06/2012 TRIAMCINOLONE ACET INJ NOS CPT-4: J3301 05/06/2012 VITAMIN B 12 FOLIC ACID CPT-4: 24519|67985 05/06/2012 RBC SED RATE AUTOMATED CPT-4: 07761 05/06/2012 ROUTINE VENIPUNCTURE CPT-4: 51365 05/06/2012 ASSAY OF FREE THYROXINE CPT-4: 44736 05/06/2012 ASSAY THYROID STIM HORMONE CPT-4: 19237 05/06/2012 COMPREHEN METABOLIC PANEL CPT-4: 03043 05/06/2012 COMPLETE CBC W/AUTO DIFF WBC CPT-4: 38063 05/06/2012 ASSAY OF BLOOD/URIC ACID CPT-4: 78356 05/06/2012 THER/PROPH/DIAG INJ SC/IM CPT-4: 85940 03/19/2012 KETOROLAC TROMETHAMINE INJ CPT-4: J1885 03/19/2012 KETOROLAC TROMETHAMINE INJ CPT-4: J1885 01/30/2012 THER/PROPH/DIAG INJ SC/IM CPT-4: 16976 01/30/2012 PROMETHAZINE HCL INJECTION CPT-4: J2550 01/30/2012 THER/PROPH/DIAG INJ SC/IM CPT-4: 21009 01/24/2012 METHYLPREDNISOLONE 40 MG INJ CPT-4: J1030 01/24/2012 TRIAMCINOLONE ACET INJ NOS CPT-4: J3301 01/24/2012 THER/PROPH/DIAG INJ SC/IM CPT-4: 31742 09/13/2011 KETOROLAC TROMETHAMINE INJ CPT-4: J1885 09/13/2011 THER/PROPH/DIAG INJ SC/IM CPT-4: 24233 09/13/2011 PROMETHAZINE HCL INJECTION CPT-4: J2550 09/13/2011 CEFTRIAXONE SODIUM INJECTION CPT-4: J0696 07/20/2011 THER/PROPH/DIAG INJ SC/IM CPT-4: 89425 07/20/2011 THER/PROPH/DIAG INJ SC/IM CPT-4: 97951 07/20/2011 METHYLPREDNISOLONE INJECTION CPT-4: J2930 07/20/2011 URINALYSIS NONAUTO W/O SCOPE CPT-4: 15903 05/09/2011 CEFTRIAXONE SODIUM INJECTION CPT-4: J0696 05/09/2011 THER/PROPH/DIAG INJ SC/IM CPT-4: 48315 05/09/2011 THER/PROPH/DIAG INJ SC/IM CPT-4: 21586 05/09/2011 PROMETHAZINE HCL INJECTION CPT-4: J2550 05/09/2011 HYDRATION IV INFUSION INIT CPT-4: 81306 05/09/2011 DESTRUCT PREMALG LESION (Cryosurgery) CPT-4: 08403 DESTRUCT PREMALG LES 2-14 CPT-4: 85362 07/19/2010 REMOVAL OF SKIN TAGS <W/15 CPT-4: 75401 05/30/2010 THER/PROPH/DIAG INJ SC/IM CPT-4: 57616 04/05/2010 CEFTRIAXONE SODIUM INJECTION CPT-4: J0696 04/05/2010 TRIAMCINOLONE ACET INJ NOS CPT-4: J3301 04/05/2010 METHYLPREDNISOLONE 40 MG INJ CPT-4: J1030 04/05/2010 THER/PROPH/DIAG INJ SC/IM CPT-4: 73960 04/05/2010 TRIAMCINOLONE ACET INJ NOS CPT-4: J3301 03/09/2010 METHYLPREDNISOLONE 40 MG INJ CPT-4: J1030 03/09/2010 THER/PROPH/DIAG INJ SC/IM CPT-4: 92739 03/09/2010 THER/PROPH/DIAG INJ SC/IM CPT-4: 20482 03/09/2010 CEFTRIAXONE SODIUM INJECTION CPT-4: J0696 03/09/2010 Vital Signs Date Vital 10/07/2019 Blood Pressure 1: 134/82 Code: 8480-6 Heart Rate 1: 105 bpm Respiratory Rate: 17 bpm SpO2: 96% Temperature: 36.8 (C) / 98.2 (F) We ight: 198 lbs 09/30/2019 Blood Pressure 1: 132/80 Code: 8480-6 BMI: 35.8 Code: 96401-0 Heart Rate 1: 88 bpm Height: 5'4" Respiratory Rate: 20 bpm SpO2: 95% Tempera ture: 36.9 (C) / 98.5 (F) Weight: 210 lbs 05/28/2019 Blood Pressure 1: 126/82 Code: 8480-6 BMI: 35.0 Code: 60887-4 Heart Rate 1: 88 bpm Height: 5'4" [...] 1: 128/90 Code: 8480-6 BMI: 37.2 Code: 89066-6 Heart Rate 1: 84 bpm Height: 5'4" Respiratory Rate: 20 bpm SpO2: 95% Tempera ture: 36.6 (C) / 97.8 (F) Weight: 217 lbs 08/27/2018 Blood Pressure 1: 128/88 Code: 8480-6 BMI: 38.3 Code: 59080-7 Heart Rate 1: 84 bpm Height: 5'4" [...] 1: 119/72 Code: 8480-6 BMI: 37.4 Code: 18832-9 Heart Rate 1: 82 bpm Height: 5'4" Respiratory Rate: 12 bpm SpO2: 94% Tempera ture: 35.2 (C) / 95.4 (F) Weight: 218 lbs 12/18/2017 Blood Pressure 1: 128/86 Code: 8480-6 BMI: 37.8 Code: 56923-5 Heart Rate 1: 84 bpm Height: 5'4" [...] 1: 128/82 Code: 8480-6 BMI: 35.5 Code: 29753-8 Heart Rate 1: 84 bpm Height: 5'4" [...] 1: 128/82 Code: 8480-6 BMI: 30.2 Code: 74143-4 Heart Rate 1: 80 bpm Height: 5'4" [...] 1: 128/86 Code: 8480-6 BMI: 32.8 Code: 35726-4 Heart Rate 1: 66 bpm Height: 5'4" Respiratory Rate: 18 bpm Temperature: 36 .3 (C) / 97.3 (F) Weight: 191 lbs 06/23/2013 Blood Pressure 1: 132/94 Code: 8480-6 BMI: 34.0 Code: 27528-0 Heart Rate 1: 84 bpm Height: 5'4" Respiratory Rate: 20 bpm Temperature: 36 .8 (C) / 98.2 (F) Weight: 198 lbs 05/26/2013 Blood Pressure 1: 114/80 Code: 8480-6 BMI: 35.0 Code: 43214-6 Heart Rate 1: 80 bpm Height: 5'4" Respiratory Rate: 20 bpm Temperature: 36 .4 (C) / 97.6 (F) Weight: 204 lbs 04/16/2013 Blood Pressure 1: 114/82 Code: 8480-6 BMI: 36.7 Code: 16692-5 Heart Rate 1: 84 bpm Height: 5'4" Respiratory Rate: 20 bpm Temperature: 36 .7 (C) / 98.0 (F) Weight: 214 lbs 03/05/2013 Blood Pressure 1: 136/90 Code: 8480-6 BMI: 37.1 Code: 10471-9 Heart Rate 1: 84 bpm Height: 5'4" [...] 1: 168/114 Code: 8480-6 BMI: 36.2 Code: 65436-2 Heart Rate 1: 104 bpm Height: 5'4" Respiratory Rate: 20 bpm Temperature: 36 .8 (C) / 98.2 (F) Weight: 211 lbs 11/22/2012 Blood Pressure 1: 128/90 Code: 8480-6 Heart Rate 1: 88 bpm Respiratory Rate: 20 bpm SpO2: 96% Temperature: 36.8 (C) / 98.2 (F) 11/21/2012 Blood Pressure 1: 146/100 Code: 8480-6 BMI: 35.7 Code: 84228-1 Heart Rate 1: 96 bpm Height: 5'4" [...] 1: 138/100 Code: 8480-6 BMI: 35.7 Code: 54125-8 Heart Rate 1: 96 bpm Height: 5'4" Respiratory Rate: 20 bpm Temperature: 36 .8 (C) / 98.2 (F) Weight: 208 lbs 05/06/2012 Blood Pressure 1: 154/102 Code: 8480-6 BMI: 34.7 Code: 26149-7 Heart Rate 1: 116 bpm Height: 5'4" Respiratory Rate: 20 bpm Temperature: 36 .8 (C) / 98.2 (F) Weight: 202 lbs 04/03/2012 Blood Pressure 1: 134/94 Code: 8480-6 BMI: 34.8 Code: 77778-3 Heart Rate 1: 108 bpm Height: 5'4" Respiratory Rate: 20 bpm Temperature: 36 .8 (C) / 98.2 (F) Weight: 203 lbs 03/19/2012 Blood Pressure 1: 148/106 Code: 8480-6 BMI: 35.0 Code: 81408-4 Heart Rate 1: 100 bpm Height: 5'4" Respiratory Rate: 20 bpm Temperature: 36 .6 (C) / 97.9 (F) Weight: 204 lbs 02/22/2012 Blood Pressure 1: 146/94 Code: 8480-6 He art Rate 1: 88 bpm 02/21/2012 Blood Pressure 1: 172/120 Code: 8480-6 B lood Pressure 2: 152/106 Code: 8480-6 Heart Rate 1: 116 bpm 02/20/2012 Blood Pressure 1: 160/100 Code: 8480-6 BMI: 32.0 Code: 07694-9 Heart Rate 1: 84 bpm Height: 5'7" Temperature: 36.5 (C) / 97.7 (F) Weight: 204 lbs 01/30/2012 Blood Pressure 1: 152/110 Code: 8480-6 BMI: 32.0 Code: 89587-3 Heart Rate 1: 116 bpm Height: 5'7" Respiratory Rate: 20 bpm Temperature: 37 .0 (C) / 98.6 (F) Weight: 204 lbs 01/24/2012 Blood Pressure 1: 146/100 Code: 8480-6 BMI: 32.0 Code: 82712-5 Heart Rate 1: 100 bpm Height: 5'7" Respiratory Rate: 20 bpm Temperature: 36 .7 (C) / 98.0 (F) Weight: 204 lbs 01/10/2012 Blood Pressure 1: 156/94 Code: 8480-6 BMI: 32.6 Code: 59472-1 Heart Rate 1: 72 bpm Height: 5'7" Respiratory Rate: 20 bpm Temperature: 36 .8 (C) / 98.2 (F) Weight: 208 lbs 12/11/2011 Blood Pressure 1: 146/100 Code: 8480-6 Heart Rat e 1: 116 bpm Height: 5'7" Respiratory Rate: 20 bpm Temperature: 36.9 (C) / 98.4 (F) We ight: 11/09/2011 Blood Pressure 1: 148/96 Code: 8480-6 BMI: 32.1 Code: 11094-1 Heart Rate 1: 116 bpm Height: 5'7" Respiratory Rate: 20 bpm Temperature: 36 .7 (C) / 98.0 (F) Weight: 205 lbs 09/13/2011 Blood Pressure 1: 126/88 Code: 8480-6 Heart Rate 1: 88 bpm Height: 5'7" Respiratory Rate: 20 bpm Temperature: 36.9 (C) / 98.4 (F) We ight: 08/31/2011 Blood Pressure 1: 118/82 Code: 8480-6 BMI: 32.0 Code: 59756-7 Heart Rate 1: 80 bpm Height: 5'7" Temperature: 36.4 (C) / 97.6 (F) Weight: 204 lbs 07/06/2011 Blood Pressure 1: 128/86 Code: 8480-6 BMI: 30.9 Code: 90663-3 Heart Rate 1: 92 bpm Height: 5'7" Respiratory Rate: 20 bpm Temperature: 36 .9 (C) / 98.4 (F) Weight: 197 lbs 06/06/2011 Blood Pressure 1: 112/74 Code: 8480-6 BMI: 31.0 Code: 90516-3 Heart Rate 1: 72 bpm Height: 5'7" [...] 1: 128/92 Code: 8480-6 BMI: 33.6 Code: 32171-8 Heart Rate 1: 104 bpm Height: 5'4" [...] Codes Date () OFFICE/OUTPATIENT VISIT EST Diagnosis: Ingrowing nail[ICD10: L60.0] Diagnosis: Type 2 diabetes mellitus with hyperglycemia[ICD10: E11.65] Kathleen Zuniga MARÍA ELENA [facility] - [employer] [facility] CPT-4: 20056 10/07/2019 ([id number]) OFFICE/OUTPATIENT VISIT EST Diagnosis: DM w/o complication type II, uncontrolled[ICD10: E11.65] Diagnosis: Hypertriglyceridemia[ICD10: E78.1] Diagnosis: Essential hypertension[ICD10: I10] María Elena JEAN [employer] CPT-4: 59152 09/30/2019 ([id number]) NURSE/OUTPATIENT VISIT EST Diagnosis: Essential (primary) hypertension[ICD10: I10] Diagnosis: Cervicalgia[ICD10: M54.2] Diagnosis: Hyperglycemia, unspecified[ICD10: R73.9] Diagnosis: Mixed hyperlipidemia[ICD10: E78.2] María Elena JEAN [employer] CPT-4: 76206 09/29/2019 ([id number]) OFFICE/OUTPATIENT VISIT EST Diagnosis: Essential (primary) hypertension[ICD10: I10] Diagnosis: Fall from bed, sequela[ICD10: W06.XXXS] María Elena REED CAL - [employer] [facility] CPT-4: 13237 05/28/2019 ([id number]) NURSE/OUTPATIENT VISIT EST Diagnosis: Essential (primary) hypertension[ICD10: I10] María Elena JUARES CAL - [employer] [facility] CPT-4: 42799 05/19/2019 ([id number]) OFFICE/OUTPATIENT VISIT EST Diagnosis: Essential (primary) hypertension[ICD10: I10] Diagnosis: Type 2 diabetes mellitus with hyperglycemia[ICD10: E11.65] Diagnosis: Intervertebral disc disorders with radiculopathy, 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] Diagnosis: Hormone replacement therapy[ICD10: Z79.890] María Elena APPIAH DO [facility] CPT-4: 19393 01/22/2019 ([id number]) OFFICE/OUTPATIENT VISIT EST Diagnosis: Essential (primary) hypertension[ICD10: I10] Diagnosis: Type 2 diabetes mellitus with hyperglycemia[ICD10: E11.65] María Elena APPIAH DO [facility] CPT-4: 12050 09/30/2018 ([id number]) OFFICE/OUTPATIENT VISIT EST Diagnosis: Pain in left elbow[ICD10: M25.522] Diagnosis: Acute stress reaction[ICD10: F43.0] Diagnosis: Primary insomnia[ICD10: F51.01] Diagnosis: Abnormal weight gain[ICD10: R63.5] María Elena Seamusmindimaryjane APPIAH [facility] CPT-4: 49547 08/27/2018 ([id number]) OFFICE/OUTPATIENT VISIT EST Diagnosis: Acute recurrent sinusitis, unspecified[ICD10: J01.91] Diagnosis: Follicular disorder, unspecified[ICD10: L73.9] Diagnosis: Tinea corporis[ICD10: B35.4] Mraía Elena APPIAH [facility] CPT-4: 82316 08/09/2018 ([id number]) OFFICE/OUTPATIENT VISIT EST Diagnosis: Tinea corporis[ICD10: B35.4] Diagnosis: Anxiety disorder, unspecified[ICD10: F41.9] Diagnosis: Menopausal and female climacteric states[ICD10: N95.1] María Elena Td APP[facility] CPT-4: 67253 07/22/2018 ([id number]) NURSE/OUTPATIENT VISIT EST Diagnosis: Cellulitis of right toe[ICD10: L03.031] María Elena Waymindimaryjane APPIAH [facility] CPT-4: 80887 06/19/2018 ([id number]) OFFICE/OUTPATIENT VISIT EST Diagnosis: Cellulitis of right toe[ICD10: L03.031] Kathleen Nadiaevans APPIAH DO [facility] CPT-4: 49107 06/17/2018 ([id number]) OFFICE/OUTPATIENT VISIT EST Diagnosis: Migraine without aura, intractable, without status migrainosus[ICD10: G43.019] Diagnosis: Zoster without complications[ICD10: B02.9] Kathleen APPIAH DO [facility] CPT-4: 26016 05/16/2018 ([id number]) OFFICE/OUTPATIENT VISIT EST Diagnosis: Cellulitis of right lower limb[ICD10: L03.115] Kathleen APPIAH DO [facility] CPT-4: 81373 03/20/2018 ([id number]) OFFICE/OUTPATIENT VISIT EST Diagnosis: Cellulitis of right lower limb[ICD10: L03.115] Kathleen APPIAH DO [facility] CPT-4: 85852 03/18/2018 ([id number]) OFFICE/OUTPATIENT VISIT EST Diagnosis: Cellulitis of right lower limb[ICD10: L03.115] Kathleen APPIAH DO [facility] CPT-4: 94696 03/15/2018 ([id number]) OFFICE/OUTPATIENT VISIT EST Diagnosis: Acute sinusitis, unspecified[ICD10: J01.90] Kathleen APPIAH DO [facility] CPT-4: 11018 02/11/2018 ([id number]) NURSE/OUTPATIENT VISIT EST Diagnosis: Otitis media, unspecified, right ear[ICD10: H66.91] María Elena APPIAH DO [facility] CPT-4: 31374 02/01/2018 ([id number]) OFFICE/OUTPATIENT VISIT EST Diagnosis: Acute suppurative otitis media without spontaneous rupture of ear drum, left ear[ICD10: H66.002] Diagnosis: Abnormal weight gain[ICD10: R63.5] Diagnosis: Intervertebral disc disorders with radiculopathy, 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] Kathleen APPIAH DO [facility] CPT-4: 99 214 01/30/2018 ([id number]) PREV VISIT EST AGE 40-64 Diagnosis: Encounter for general adult medical examination without abnormal findings[ICD10: Z00.00] Diagnosis: Essential (primary) hypertension[ICD10: I10] Diagnosis: Mixed hyperlipidemia[ICD10: E78.2] Diagnosis: Type 2 diabetes mellitus with hyperglycemia[ICD10: E11.65] Diagnosis: 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] María Elena APPIAH DO [facility] CPT-4: 68030 12/18/2017 ([id number]) OFFICE/OUTPATIENT VISIT EST Diagnosis: Cellulitis of right toe[ICD10: L03.031] Diagnosis: Mixed hyperlipidemia[ICD10: E78.2] Diagnosis: Essential (primary) hypertension[ICD10: I10] Diagnosis: Hyperglycemia, unspecified[ICD10: R73.9] Diagnosis: Nontoxic goiter, 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] María Elena APPIAH [facility] CPT-4: 59076 12/10/2017 ([id number]) OFFICE/OUTPATIENT VISIT EST Diagnosis: Cellulitis of right toe[ICD10: L03.031] Diagnosis: Acute sinusitis, unspecified[ICD10: J01.90] Kathleen APPIAH DO [facility] CPT-4: 77310 12/07/2017 OFFICE/OUTPATIENT VISIT EST Diagnosis: Acute maxillary sinusitis, unspecified[ICD10: J01.00] Kathleen APPIAH DO [facility] CPT-4: 54915 10/08/2017 ([id number]) OFFICE/OUTPATIENT VISIT EST Diagnosis: Cellulitis of left toe[ICD10: L03.032] María Elena APPIAH [facility] CPT-4: 56119 09/21/2017 ([id number]) OFFICE/OUTPATIENT VISIT EST Diagnosis: Insomnia, unspecified[ICD10: G47.00] Diagnosis: Major depressive disorder, single episode, unspecified[ICD10: F32.9] Diagnosis: Anxiety disorder, unspecified[ICD10: F41.9] Diagnosis: Cellulitis of left toe[ICD10: L03.032] Diagnosis: Snoring[ICD10: R06.83] Kathleen APPIAH DO [facility] CPT-4: 80153 09/20/2017 ([id number]) OFFICE/OUTPATIENT VISIT EST Diagnosis: Cellulitis of left toe[ICD10: L03.032] María Elena Oremindimaryjane APP[facility] CPT-4: 23784 07/19/2017 OFFICE/OUTPATIENT VISIT EST Diagnosis: Chronic sinusitis, unspecified[ICD10: J32.9] Diagnosis: Generalized hyperhidrosis[ICD10: R61] Kathleen APPIAH DO [facility] CPT-4: 27654 06/27/2017 ([id number]) OFFICE/OUTPATIENT VISIT EST Diagnosis: Intervertebral disc disorders with radiculopathy, 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] Diagnosis: Primary insomnia[ICD10: F51.01] Diagnosis: Other fatigue[ICD10: R53.83] María Elena Seamusdawn JUARES AlanJj TD [facility] CPT-4: 90987 04/10/2017 ([id number]) OFFICE/OUTPATIENT VISIT EST Diagnosis: Primary insomnia[ICD10: F51.01] Diagnosis: Localized edema[ICD10: R60.0] Diagnosis: 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] María Elena Seamusmindimaryjane MONTEROMARÍA ELENA AlanJj TD [facility] CPT-4: 84414 12/13/2016 ([id number]) OFFICE/OUTPATIENT VISIT EST Diagnosis: Primary insomnia[ICD10: F51.01] Diagnosis: Cyanosis[ICD10: R23.0] María Elena JUARES AlanJj CIRO [facility] CPT-4: 75200 11/01/2016 ([id number]) PREV VISIT EST AGE 40-64 Diagnosis: Encounter for gynecological examination (general) (routine) without abnormal findings[ICD10: Z01.419] Diagnosis: Encounter for routine child health examination without abnormal findings[ICD10: Z00.129] María Elena JUARES AlanJj TD [facility] CPT-4: 88057 10/17/2016 ([id number]) OFFICE/OUTPATIENT VISIT EST Diagnosis: Other seasonal allergic rhinitis[ICD10: J30.2] María Elena JUARES AlanJj TD [facility] CPT-4: 85864 10/10/2016 ([id number]) OFFICE/OUTPATIENT VISIT EST Diagnosis: Pain in left arm[ICD10: M79.602] Diagnosis: Contact with and (suspected) exposure to potentially hazardous body fluids[ICD10: Z77.21] Diagnosis: 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, 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] Diagnosis: Unspecified open wound, right foot, sequela[ICD10: S91.301S] María Elena APPIAH [employer] CPT-4: 94705 09/19/2016 ([id number]) OFFICE/OUTPATIENT VISIT EST Diagnosis: Chronic sinusitis, unspecified[ICD10: J32.9] Diagnosis: Allergic rhinitis due to pollen[ICD10: J30.1] María Elena APPIA[facility] [employer] CPT-4: 66962 08/24/2016 ([id number]) OFFICE/OUTPATIENT VISIT EST Diagnosis: Acute bronchitis, unspecified[ICD10: J20.9] María Elena APP[facility] [employer] CPT-4: 93669 08/16/2016 ([id number]) OFFICE/OUTPATIENT VISIT EST Diagnosis: Otitis media, unspecified, right ear[ICD10: H66.91] Diagnosis: Acute bronchitis, unspecified[ICD10: J20.9] María Elena APPIA[facility] [employer] CPT-4: 14995 08/10/2016 ([id number]) OFFICE/OUTPATIENT VISIT EST Diagnosis: Acute recurrent sinusitis, unspecified[ICD10: J01.91] Diagnosis: Allergic rhinitis due to pollen[ICD10: J30.1] María Elena [facility] [employer] CPT-4: 06379 08/02/2016 ([id number]) OFFICE/OUTPATIENT VISIT EST Diagnosis: Pain in unspecified joint[ICD10: M25.50] María Elena APP[facility] [employer] CPT-4: 14505 07/27/2016 OFFICE/OUTPATIENT VISIT EST Diagnosis: 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] Diagnosis: Acute recurrent sinusitis, unspecified[ICD10: J01.91] Diagnosis: Other fatigue[ICD10: R53.83] Diagnosis: Primary insomnia[ICD10: F51.01] Diagnosis: Pain in unspecified joint[ICD10: M25.50] María Elena [facility] CPT-4: 01309 07/20/2016 ([id number]) OFFICE/OUTPATIENT VISIT EST Diagnosis: Blister (nonthermal), left great toe, initial encounter[ICD10: S90.422A] Loan [facility] CPT-4: 49215 ([id number]) OFFICE/OUTPATIENT VISIT EST Diagnosis: Acute recurrent sinusitis, unspecified[ICD10: J01.91] María Elena APP[facility] [employer] CPT-4: 15052 05/25/2016 ([id number]) OFFICE/OUTPATIENT VISIT EST Diagnosis: Acute sinusitis, unspecified[ICD10: J01.90] María Elena APP[facility] [employer] CPT-4: 16980 04/26/2016 ([id number]) OFFICE/OUTPATIENT VISIT EST Diagnosis: Flushing[ICD10: R23.2] Diagnosis: Primary insomnia[ICD10: F51.01] María Elena [facility] [employer] CPT-4: 87725 03/02/2016 ([id number]) OFFICE/OUTPATIENT VISIT EST Diagnosis: Other seasonal allergic rhinitis[ICD10: J30.2] Loan [facility] CPT-4: 36084 02/09/2016 ([id number]) OFFICE/OUTPATIENT VISIT EST Diagnosis: Primary insomnia[ICD10: F51.01] Diagnosis: Urinary tract infection, site not specified[ICD10: N39.0] María Elena [facility] [employer] CPT-4: 28166 01/24/2016 ([id number]) OFFICE/OUTPATIENT VISIT EST Diagnosis: Other specified disorders of Eustachian tube, bilateral[ICD10: H69.83] Diagnosis: Allergic rhinitis, unspecified[ICD10: J30.9] Loan ELLISLINE Fabiola [facility] CPT-4: 37864 12/23/2015 ([id number]) OFFICE/OUTPATIENT VISIT EST Diagnosis: Acute recurrent sinusitis, unspecified[ICD10: J01.91] Diagnosis: 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] Diagnosis: Allergic rhinitis, unspecified[ICD10: J30.9] María Elena APPIAH DO [facility] CPT-4: 21934 12/08/2015 ([id number]) OFFICE/OUTPATIENT VISIT EST Diagnosis: Allergic rhinitis, unspecified[ICD10: J30.9] Diagnosis: Pain in unspecified joint[ICD10: M25.50] María Elena APPIAH DO [facility] CPT-4: 01600 10/07/2015 ([id number]) OFFICE/OUTPATIENT VISIT EST Diagnosis: Essential (primary) hypertension[ICD10: I10] María Elena APPIAH DO [employer] CPT-4: 07827 10/06/2015 OFFICE/OUTPATIENT VISIT EST Diagnosis: Localized enlarged lymph nodes[ICD10: R59.0] Diagnosis: Local infection of the skin and subcutaneous tissue, unspecified[ICD10: L08.9] June VelozAlbertadaniella APPIAH [employer] CPT- 4: 50828 09/14/2015 ([id number]) OFFICE/OUTPATIENT VISIT EST Diagnosis: Essential (primary) hypertension[ICD10: I10] Diagnosis: Actinic keratosis[ICD10: L57.0] María Elena APPIAH DO [facility] CPT-4: 85990 09/07/2015 ([id number]) OFFICE/OUTPATIENT VISIT EST Diagnosis: Essential (primary) hypertension[ICD10: I10] Diagnosis: Acute stress reaction[ICD10: F43.0] María Elena APPIAH [facility] CPT-4: 27620 08/18/2015 ([id number]) OFFICE/OUTPATIENT VISIT EST Diagnosis: Essential (primary) hypertension[ICD10: I10] María Elena APPIAH DO [employer] CPT-4: 75055 07/07/2015 ([id number]) OFFICE/OUTPATIENT VISIT EST Diagnosis: Essential (primary) hypertension[ICD10: I10] María Elena ORTAER [facility] CPT-4: 50260 06/24/2015 ([id number]) OFFICE/OUTPATIENT VISIT EST Diagnosis: Essential (primary) hypertension[ICD10: I10] María Elena APPIAH DO [facility] CPT-4: 16832 06/21/2015 ([id number]) OFFICE/OUTPATIENT VISIT EST Diagnosis: Essential (primary) hypertension[ICD10: I10] Diagnosis: Mixed hyperlipidemia[ICD10: E78.2] Diagnosis: Acute stress reaction[ICD10: F43.0] Diagnosis: Primary insomnia[ICD10: F51.01] María Elena APPIAH [facility] CPT-4: 59014 06/16/2015 ([id number]) OFFICE/OUTPATIENT VISIT EST Diagnosis: INSOMNIA NOS[ICD9: 780.52] Diagnosis: HYPERTENSION[ICD9: 401.9] Diagnosis: Stress reaction[ICD9: 308.9] María Elena APPIAH [facility] CPT-4: 40077 06/02/2015 ([id number]) OFFICE/OUTPATIENT VISIT EST Diagnosis: HYPERTENSION[ICD9: 401.9] Diagnosis: Stress reaction[ICD9: 308.9] María Elena APPIAH [facility] CPT-4: 16883 05/20/2015 ([id number]) OFFICE/OUTPATIENT VISIT EST Diagnosis: Skin lesion[ICD9: 709.9] 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] María Elena APPIAH [facility] CPT-4: 59373 05/10/2015 ([id number]) OFFICE/OUTPATIENT VISIT EST Diagnosis: SINUSITIS, ACUTE[ICD9: 461.9] Diagnosis: ALLERGIC RHINITIS[ICD9: 477.9] Diagnosis: DERMATITIS NOS[ICD9: 692.9] María Elena REHMAN [facility] CPT-4: 54188 03/16/2015 OFFICE/OUTPATIENT VISIT EST Diagnosis: Otitis media[ICD9: 382.9] Diagnosis: SINUSITIS, ACUTE[ICD9: 461.9] June Flores MARÍA ELENA APPIAH [facility] CPT-4: 57680 09/11/2014 ([id number]) OFFICE/OUTPATIENT VISIT EST Diagnosis: HYPERLIPIDEMIA NEC/NOS[ICD9: 272.4] María Elena APPIAH DO [facility] CPT-4: 01118 08/31/2014 ([id number]) OFFICE/OUTPATIENT VISIT EST Diagnosis: - I - HYPERTENSION[ICD9: 401.9] Diagnosis: HYPERLIPIDEMIA NEC/NOS[ICD9: 272.4] María Elena APPIAH DO [facility] CPT-4: 00181 08/27/2014 ([id number]) OFFICE/OUTPATIENT VISIT EST Diagnosis: ABDOMINAL PAIN[ICD9: 789.00] Diagnosis: DYSPEPSIA[ICD9: 536.8] Diagnosis: Thoracic back pain[ICD9: 724.1] María Elena APPIAH DO [facility] CPT-4: 93527 07/21/2014 ([id number]) OFFICE/OUTPATIENT VISIT EST Diagnosis: ALLERGIC RHINITIS[ICD9: 477.9] María Elena APPIAH DO [facility] CPT-4: 23379 07/15/2014 ([id number]) OFFICE/OUTPATIENT VISIT EST Diagnosis: EDEMA[ICD9: 782.3] Diagnosis: Chronic insomnia[ICD9: 780.52] María Elena APPIAH DO [facility] CPT-4: 76502 05/18/2014 ([id number]) OFFICE/OUTPATIENT VISIT EST Diagnosis: Thyromegaly[ICD9: 240.9] Diagnosis: - I - HYPERTENSION[ICD9: 401.9] Diagnosis: ROUTINE MEDICAL EXAM[ICD9: V70.0] Diagnosis: EDEMA[ICD9: 782.3] María Elena APPIAH DO [facility] CPT-4: 02292 05/14/2014 OFFICE/OUTPATIENT VISIT EST Diagnosis: BRONCHITIS, ACUTE[ICD9: 466.0] Diagnosis: SINUSITIS, ACUTE[ICD9: 461.9] María Elena APPIAH DO [facility] CPT-4: 96827 04/21/2014 OFFICE/OUTPATIENT VISIT EST Diagnosis: SINUSITIS, ACUTE[ICD9: 461.9] June VanSpencer APPIAH [facility] CPT-4: 64677 03/04/2014 ([id number]) OFFICE/OUTPATIENT VISIT EST Diagnosis: VACCINE FOR TDAP[ICD10: Z23] María Elena APPIAH DO [facility] CPT-4: 71307 02/27/2014 ([id number]) OFFICE/OUTPATIENT VISIT EST Diagnosis: Seborrheic keratoses, inflamed[ICD9: 702.11] Diagnosis: ACTINIC KERATOSIS[ICD9: 702.0] Diagnosis: INSOMNIA NOS[ICD9: 780.52] María Elena PANDYA [facility] CPT-4: 93360 01/13/2014 OFFICE/OUTPATIENT VISIT EST 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] Diagnosis: ALLERGIC RHINITIS[ICD9: 477.9] Diagnosis: Serous otitis media[ICD9: 381.4] María Elena APPIAH [facility] CPT-4: 19895 12/24/2013 ([id number]) OFFICE/OUTPATIENT VISIT EST Diagnosis: SINUSITIS, ACUTE[ICD9: 461.9] Diagnosis: ALLERGIC RHINITIS[ICD9: 477.9] 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] María Elena APPIAH [facility] CPT-4: 50664 11/12/2013 ([id number]) OFFICE/OUTPATIENT VISIT EST Diagnosis: ALLERGIC RHINITIS[ICD9: 477.9] Diagnosis: SINUSITIS, ACUTE[ICD9: 461.9] María Elena APPIAH [facility] CPT-4: 15923 10/21/2013 ([id number]) OFFICE/OUTPATIENT VISIT EST Diagnosis: ASYMPTOMATIC VARICOSE VEINS[ICD9: 454.9] Diagnosis: INSOMNIA NOS[ICD9: 780.52] María Elena PANDYA [facility] CPT-4: 87438 09/22/2013 OFFICE/OUTPATIENT VISIT EST Diagnosis: SINUSITIS, ACUTE[ICD9: 461.9] June VelozSpencer APPIAH [facility] CPT-4: 55259 08/27/2013 ([id number]) OFFICE/OUTPATIENT VISIT EST Diagnosis: CEPHALGIA[ICD9: 784.0] Diagnosis: CEPHALGIA, TENSION[ICD9: 307.81] 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] María Elena APPIAH DO [facility] CPT-4: 90915 08/04/2013 ([id number]) OFFICE/OUTPATIENT VISIT EST Diagnosis: Cervicalgia[ICD9: 723.1] Diagnosis: SPASM OF MUSCLE[ICD9: 728.85] Diagnosis: CEPHALGIA, TENSION[ICD9: 307.81] María Elena APPIAH DO [facility] CPT-4: 46019 07/23/2013 ([id number]) OFFICE/OUTPATIENT VISIT EST 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] Diagnosis: ALLERGIC RHINITIS[ICD9: 477.9] María Elena APPIAH DO [facility] CPT-4: 20054 06/23/2013 ([id number]) OFFICE/OUTPATIENT VISIT EST Diagnosis: ALLERGIC RHINITIS[ICD9: 477.9] Diagnosis: ACUTE SEROUS OTITIS MEDIA[ICD9: 381.01] 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] María Elena APPIAH [facility] CPT-4: 34048 05/26/2013 ([id number]) OFFICE/OUTPATIENT VISIT EST Diagnosis: HYPERTENSION[ICD9: 401.9] Diagnosis: EDEMA[ICD9: 782.3] Diagnosis: Serous otitis media[ICD9: 381.4] María Elena APPIAH [facility] CPT-4: 75077 04/16/2013 ([id number]) OFFICE/OUTPATIENT VISIT EST Diagnosis: SINUSITIS, ACUTE[ICD9: 461.9] Diagnosis: ALLERGIC RHINITIS[ICD9: 477.9] Diagnosis: EDEMA[ICD9: 782.3] Diagnosis: Thyromegaly[ICD9: 240.9] Diagnosis: MALAISE AND FATIGUE[ICD9: 780.79] María Elena APPIAH [facility] CPT-4: 93339 03/05/2013 ([id number]) OFFICE/OUTPATIENT VISIT EST Diagnosis: PAIN, LOWER BACK[ICD9: 724.2] Diagnosis: SPASM OF MUSCLE[ICD9: 728.85] María Elena JUARES AlanJj TD [facility] CPT-4: 06519 12/23/2012 OFFICE/OUTPATIENT VISIT EST Diagnosis: Low back pain[ICD9: 724.2] Lashawn Hicks KRISTYN MUMTAZ [facility] CPT-4: 49251 12/16/2012 ([id number]) OFFICE/OUTPATIENT VISIT EST Diagnosis: PAIN, LOWER BACK[ICD9: 724.2] Diagnosis: SCIATICA[ICD9: 724.3] Diagnosis: Lumbar herniated disc[ICD9: 722.10] María Elena COLON AlanJj TD [facility] CPT-4: 45696 12/09/2012 ([id number]) OFFICE/OUTPATIENT VISIT EST Diagnosis: PAIN, LOWER BACK[ICD9: 724.2] Diagnosis: SCIATICA[ICD9: 724.3] Diagnosis: LUMBAR DISC DISPLACEMENT[ICD9: 722.10] María Elena MARIN AlanJj TD [facility] CPT-4: 29547 12/04/2012 OFFICE/OUTPATIENT VISIT EST Diagnosis: Pneumonia[ICD9: 486] Mary Hicks TD [facility] CPT-4: 14280 11/22/2012 ([id number]) OFFICE/OUTPATIENT VISIT EST Diagnosis: PNEUMONIA, ORGANISM[ICD9: 486] Diagnosis: Exacerbation of RAD (reactive airway disease)[ICD9: 493.92] María Elena Hicks TD [facility] CPT-4: 34105 11/21/2012 OFFICE/OUTPATIENT VISIT EST Diagnosis: HYPERTENSION[ICD9: 401.9] Diagnosis: Cephalgia[ICD9: 784.0] Lashawn Hicks TD GARIBAY [facility] CPT-4: 45628 10/29/2012 ([id number]) OFFICE/OUTPATIENT VISIT EST Diagnosis: MALAISE AND FATIGUE[ICD9: 780.79] Diagnosis: ARTHRALGIA-MULTIPLE SITES[ICD9: 719.49] María Elena Hicks TD [facility] CPT-4: 62838 10/14/2012 ([id number]) OFFICE/OUTPATIENT VISIT EST Diagnosis: URINARY FREQUENCY[ICD9: 788.41] María Elena APPIAH DO [facility] CPT-4: 76346 09/27/2012 ([id number]) OFFICE/OUTPATIENT VISIT EST Diagnosis: MALAISE AND FATIGUE[ICD9: 780.79] Diagnosis: ARTHRALGIA-MULTIPLE SITES[ICD9: 719.49] María Elena APPIAH DO [facility] CPT-4: 59706 09/25/2012 ([id number]) OFFICE/OUTPATIENT VISIT EST Diagnosis: SINUSITIS, ACUTE[ICD9: 461.9] 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] María Elena APPIAH [facility] CPT-4: 66897 08/29/2012 OFFICE/OUTPATIENT VISIT EST Diagnosis: ACTINIC KERATOSIS[ICD9: 702.0] Diagnosis: Inflamed seborrheic keratosis[ICD9: 702.11] Diagnosis: Skin cancer of face[ICD9: 173.31] Diagnosis: HYPERTENSION[ICD9: 401.9] María Elena SEYMOUR [facility] CPT-4: 54309 08/12/2012 ([id number]) OFFICE/OUTPATIENT VISIT EST Diagnosis: ARTHRALGIA-MULTIPLE SITES[ICD9: 719.49] Diagnosis: GOUT[ICD9: 274.9] Diagnosis: HYPERTENSION[ICD9: 401.9] Diagnosis: Tachycardia[ICD9: 785.0] María Elena ValdesJj FRITZ KARLOS [facility] CPT-4: 74277 05/06/2012 ([id number]) OFFICE/OUTPATIENT VISIT EST Diagnosis: INSOMNIA NOS[ICD9: 780.52] [facility]: 41839 04/03/2012 ([id number]) OFFICE/OUTPATIENT VISIT EST Diagnosis: INSOMNIA NOS[ICD9: 780.52] Diagnosis: HYPERTENSION[ICD9: 401.9] Diagnosis: MIGRAINE NOS/NOT INTRCBL[ICD9: 346.90] María Elena MONTEROLui MARIN Fabiola WAYNDER [facility] CPT-4: 82826 03/19/2012 ([id number]) OFFICE/OUTPATIENT VISIT EST Diagnosis: CELLULITIS[ICD9: 682.9] Diagnosis: Ankle pain[ICD9: 719.47] Diagnosis: HYPERTENSION[ICD9: 401.9] María Elena Seamusdawn JUARES AlanJj SEAMUS MOJICARose Mary [facility] CPT-4: 30040 02/20/2012 ([id number]) OFFICE/OUTPATIENT VISIT EST Diagnosis: MIGRAINE NOS/NOT INTRCBL[ICD9: 346.90] Diagnosis: Vomiting[ICD9: 787.03] María Elenabrianna Hicks SEAMUSGALINA Bazzi [facility] CPT-4: 77375 01/30/2012 ([id number]) OFFICE/OUTPATIENT VISIT EST Diagnosis: EDEMA[ICD9: 782.3] Diagnosis: HYPERTENSION[ICD9: 401.9] Diagnosis: ALLERGIC RHINITIS[ICD9: 477.9] Diagnosis: ARTHRALGIA-MULTIPLE SITES[ICD9: 719.49] María Elena Hicks SEAMUSDAWN [facility] CPT-4: 68476 01/24/2012 ([id number]) OFFICE/OUTPATIENT VISIT EST Diagnosis: SPASM OF MUSCLE[ICD9: 728.85] Diagnosis: Thoracic back pain[ICD9: 724.1] Diagnosis: Cervical pain[ICD9: 723.1] María Elena Hicks KRISTYN MUMTAZ [facility] CPT-4: 69755 01/10/2012 OFFICE/OUTPATIENT VISIT EST Diagnosis: PAIN, LOWER BACK[ICD9: 724.2] Diagnosis: LUMBAR DISC DISPLACEMENT[ICD9: 722.10] María Elena Hicks SEAM[facility]DAWN [facility] CPT-4: 47772 12/11/2011 OFFICE/OUTPATIENT VISIT EST Diagnosis: MIGRAINE NOS/NOT INTRCBL[ICD9: 346.90] Diagnosis: SINUSITIS, ACUTE[ICD9: 461.9] María Elena Hicks SE[facility]DAWN [facility] CPT-4: 15156 11/09/2011 OFFICE/OUTPATIENT VISIT EST Diagnosis: MIGRAINE NOS/NOT INTRCBL[ICD9: 346.90] Diagnosis: LYMPHADENOPATHY[ICD9: 785.6] María Elena Hicks [facility] CPT-4: 94411 09/13/2011 OFFICE/OUTPATIENT VISIT EST Diagnosis: MALAISE AND FATIGUE[ICD9: 780.79] Diagnosis: ARTHRALGIA-MULTIPLE SITES[ICD9: 719.49] María Elena ValdesJj TD [facility] CPT-4: 93858 08/31/2011 OFFICE/OUTPATIENT VISIT EST Diagnosis: SINUSITIS, ACUTE[ICD9: 461.9] María Elena ValdesJj TD GAR[facility]AY [facility] CPT-4: 25797 07/20/2011 OFFICE/OUTPATIENT VISIT EST Diagnosis: HYPERTENSION[ICD9: 401.9] Diagnosis: PAIN, LOWER BACK[ICD9: 724.2] Diagnosis: SPASM OF MUSCLE[ICD9: 728.85] María Elena ValdesJj TD [facility] CPT-4: 86207 07/06/2011 OFFICE/OUTPATIENT VISIT EST Diagnosis: MIGRAINE NOS/NOT INTRCBL[ICD9: 346.90] Diagnosis: HYPERTENSION[ICD9: 401.9] María Elena Waymindimaryjane MARÍA ELENA SJj SEAMUS [facility] CPT-4: 80329 05/22/2011 OFFICE/OUTPATIENT VISIT EST Diagnosis: SINUSITIS, ACUTE[ICD9: 461.9] Diagnosis: MIGRAINE NOS/NOT INTRCBL[ICD9: 346.90] Diagnosis: Dehydration[ICD9: 276.51] Diagnosis: Vomiting[ICD9: 787.03] María Elena Seamusmindimaryjane MARÍA ELENA AlanJj CIRO Bazzi [facility] CPT-4: 73425 05/09/2011 ([id number]) OFFICE/OUTPATIENT VISIT EST María Elena Ortamaryjane MARLIN UJARED S. SEAMUSNDER [facility] CPT-4: 64570 02/14/2011 ([id number]) OFFICE/OUTPATIENT VISIT EST María Elena Seamusmindimaryjane MARLIN UJARED SJj ORENDER DO [facility] CPT-4: 83273 02/03/2011 ([id number]) OFFICE/OUTPATIENT VISIT EST María Elena Ortamaryjane MARLIN UJARED S. SEAMUSNDER [facility] CPT-4: 12255 01/31/2011 ([id number]) OFFICE/OUTPATIENT VISIT EST María Elena Seamusmindimaryjane MARLIN UJARED SJj SEAMUSNDER DO [facility] CPT-4: 69967 01/25/2011 ([id number]) OFFICE/OUTPATIENT VISIT EST María Elenagael [facility] CPT-4: 64544 01/18/2011 ([id number]) OFFICE/OUTPATIENT VISIT EST María Elena MARIN SJj [facility] CPT-4: 96694 11/29/2010 ([id number]) OFFICE/OUTPATIENT VISIT, EST María Elena REED [facility] CPT-4: 77750 10/10/2010 ([id number]) OFFICE/OUTPATIENT VISIT, EST María Elena [facility] CPT-4: 89929 06/07/2010 ([id number]) OFFICE/OUTPATIENT VISIT, EST María Elena [facility] CPT-4: 69528 04/27/2010 ([id number]) OFFICE/OUTPATIENT VISIT, EST María Elena [facility] CPT-4: 40199 04/05/2010 ([id number]) OFFICE/OUTPATIENT VISIT, EST María Elena [facility] CPT-4: 39202 03/09/2010 ([id number]) OFFICE/OUTPATIENT VISIT, EST María Elena [facility] CPT-4: 99417 03/03/2010 ([id number]) OFFICE/OUTPATIENT VISIT, EST María Elena [facility] CPT-4: 08808 01/17/2010 ([id number]) PREV VISIT, EST, AGE 40-64 María Elena COLEMAN S. [facility] DO [facility] CPT-4: 59707 12/27/2009 Plan of Care Planned Activity Notes [...] : E11.65 10/07/2019 Appointment: Kathleen Zuniga [address] [place], [place] [id number] [place] OFFICE SURGERY 10/07/2019 Visit Diagnosis Plan: [...] E11.65 09/30/2019 Appointment: María Elena Appiah [facility] [address] [facility] [place] CHECK UP 09/30/2019 Patient Education: Premarin- [employer] Coupon [id number] https://www.DNsolution.com/samplemd/resources/getResource/61/86177o15-z698-0tyv-j2 Completed 09/30/2019 Appointment: María Elena Appiah WPtel: [address] [place], [place] [id number] [place] LAB 09/29/2019 Appointment: María Elena Appiah WPtel: [address] [place], [place] [phone] [place] Won't have the new insurance till [...] W06.XXXS 05/28/2019 Appointment: María Elena Appiah WPtel: [address] [place], [place] [phone] [place] FOLLOW UP 05/28/2019 Appointment: María Elena Appiah WPtel: [address] [place] [address] US BP CHECK 05/19/2019 Visit Diagnosis Plan: [...] Z79.890 01/22/2019 Appointment: María Elena Appiah WPtel: [address] [place], [place] [phone] [place] FOLLOW UP 01/22/2019 Patient Education: estradiol- [employer] Coupon [id number] https://www.DNsolution.Orckestra/samplesc/resources/getResource/61/951j815u-0ja3-0g13-9q Completed 01/22/2019 Appointment: María Elena Appiah WPtel: [address] [place] [address] [place] CANCELED 01/20/2019 Appointment: María Elena Appiah WPtel: [address] [place] [address] US LM NO SHOW 01/06/2019 Appointment: María Elena Appiah WPtel: [address] [place] [address] [place] CANCELED 10/17/2018 Appointment: María Elena Appiah WPtel: [address] [place] [address] US BP CHECK 10/09/2018 Visit Diagnosis Plan: [...] I10 09/30/2018 Appointment: María Elena Appiah WPtel: [address] [place] [address] [place] FOLLOW UP 09/30/2018 Visit Diagnosis Plan: [...] ICD-10 : F51.01 08/27/2018 Appointment: María Elena pApiah WPtel: [address] [place] [address] ACUTE ILLNESS 08/27/2018 Appointment: María Elena Appiah WPtel: [address] [place] [address] [place] Patient stated she went out to [...] Tyle... 08/09/2018 Appointment: María Elena Appiah WPtel: [address] [place] [address] ACUTE ILLNESS 08/09/2018 Appointment: María Elena Appiah WPtel: [address] [place] [address] NO SHOW 08/08/2018 Visit Diagnosis Plan: Anxiety [...] 07/22/2018 Appointment: María Elena Appiah WPtel: [phone] [facility] [place] AC[place] ILLNESS 07/22/2018 Appointment: María Elena Appiah WPtel: [phone] [facility] [place] INJECTION 06/19/2018 Patient Education: Patient Medication [...] ICD-10 : L03.031 06/17/2018 Appointment: Kathleen Zuniga [address] [place] [address] ACUTE ILLNESS 06/17/2018 Patient Education: Patient Medication [...] : B02.9 05/16/2018 Appointment: Kathleen Zuniga [address] [place], [place] [id number] ACUTE ILLNESS 05/16/2018 Patient Education: Patient Medication [...] ICD-10 : L03.115 03/20/2018 Appointment: Kathleen Zuniga [address] [place] [address] FOLLOW UP 03/20/2018 Patient Education: Patient Medication [...] : L03.115 03/18/2018 Appointment: Kathleen Zuniga [address] [id number] FOLLOW UP 03/18/2018 Patient Education: Patient Medication [...] : L03.115 03/15/2018 Appointment: Kathleen Zuniga [address] [place], [place] [address] ACUTE ILLNESS 03/15/2018 Patient Education: Patient Medication [...] : J01.90 02/11/2018 Appointment: Kathleen Zuniga [address] [place], [place] [address] ACUTE ILLNESS 02/11/2018 Patient Education: Patient Medication Summary Completed 02/11/2018 Appointment: María Elena Appiah WPtel: [phone] [id number] [place] INJECTION 02/01/2018 Patient Education: Patient Medication [...] ICD-10 : M51.16 01/30/2018 Appointment: Kathleen Zuniga [address] [place] [address] ACUTE ILLNESS 01/30/2018 Patient Education: Patient Medication [...] 12/18/2017 Appointment: María Elena Appiah WPtel: [phone] [facility] Annual Well Visit 12/18/2017 Patient Education: Patient Medication Summary Completed 12/18/2017 Care Plan: Referral Order SNOMED-CT : [id number] Pending 12/18/2017 Appointment: María Elena Appiah WPtel: [phone] INJECTION 12/10/2017 Patient Education: Patient Medication Summary [...] ICD-10 : L03.031 12/07/2017 Appointment: Kathleen Zuniga [address] [place] [address] ACUTE ILLNESS 12/07/2017 Patient Education: Patient Medication [...] : J01.00 10/08/2017 Appointment: Kathleen Zuniga [address] [facility] ACUTE ILLNESS 10/08/2017 Patient Education: Patient Medication Summary Completed 10/08/2017 Appointment: María Elena Appiah WPtel: [phone] [place] [place] INJECTION 09/21/2017 Patient Education: Patient Medication [...] : R06.83 09/20/2017 Appointment: Kathleen Zuniga [address] [facility] ACUTE ILLNESS 09/20/2017 Patient Education: Patient Medication [...] ICD-10 : L60.0 08/29/2017 Appointment: Kathleen Zuniga [address] [place] [address] OFFICE SURGERY 08/29/2017 Patient Education: Patient Medication Summary Completed 08/29/2017 Visit Diagnosis Plan: Actinic keratosis Discussion: Cr yotherapy as above ICD-9 : 702.0 ICD-10 : L57.0 08/01/2017 Appointment: María Elena Appiah WPtel: [address] [place] [address] OFFICE SURGERY 08/01/2017 Patient Education: Patient Medication Summary Completed 08/01/2017 Appointment: María Elena Appiah WPtel: [address] [place] [address] PATIENT THOUGHT APPOINTMENT WAS TOMORROW 07/26/17 CALLED 15 MINUTES BEFORE APPT TO SAY SHE DIDN'T HAVE ANYONE TO COVER HER BUSINESS AND WOULD NOT MAKE IT NO SHOW 07/25/2017 Visit Diagnosis Plan: Cellulitis of left toe Discussio n: Clindamycin and notify if worsening or persistis ICD-9 : 681.10 ICD-10 : L03.032 07/19/2017 Appointment: María Elena Appiah WPtel: [address] [place], [place] [address] MEDICATION REVIEW 07/19/2017 Patient Education: Patient Medication Summary Completed 07/19/2017 Appointment: María Elena Appiah WPtel: [address] [place], [place] [address] CANCELED 07/04/2017 Visit Diagnosis Plan: Generalized hyperhidrosis Discus ian: CBC, CMP, TSH, free T4 ordered to assess. will review labs. ICD-9 : 780.8 ICD-10 : R61 06/27/2017 Visit Diagnosis Plan: Chronic sinusitis, unspecified D iscussion: Referral sent to dr. albarado in [place] per patient request. patient has been treated multiple times for sinus infections with no recovery. patient was seen by dr sanchez in the past with no interventions. patient has deviated septum which may be affecting her sinuses. 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, including hip Discussion: Shave removal of above lesio n--sent to pathology ICD-9 : 216.7 ICD-10 : D23.72 01/24/2017 Appointment: María Elena Appiah WPtel: [address] [place], [place] [phone] [place] 01/23 confirmed ~sl OFFICE SURGERY 01/24/2017 Patient Education: Patient Medication Summary Completed 01/24/2017 Appointment: Gonzalo Loan [address] [place], [place] [id number] 01/09 rescheduled~ RESCHEDULED 01/15/2017 Visit Diagnosis Plan: [...] 12/13/2016 Appointment: María Elena Appiah WPtel: [address] [place], [place] [phone] 12/12 confirmed ~ MEDICATION REVIEW 12/13/2016 Patient Education: Patient Medication Summary Completed 12/13/2016 Appointment: María Elena Appiah WPtel: [address] [place], [place] [phone] [place] rescheduled for 12/13/16 at 11am RESCHEDULED 0 12/06/2016 Appointment: María Elena Appiah WPtel: [address] [place], [place] [phone] [place] CANCELED 11/23/2016 Patient Education: Patient Medication [...] 11/01/2016 Appointment: María Elena Appiah WPtel: [address] [place], [place] [phone] [place] 10/31 lm `sl 11/01 lm`sl MEDICATION REVIEW 017 Patient Education: Patient Medication Summary Completed 11/01/2016 Referral: Canelo Overton WPtel: [address] [id number] [place] Referral Initiated 10/30/2016 Visit Diagnosis Plan: [...] Z01.419 10/17/2016 Appointment: María Elena Appiah WPtel: [address] [place], [place] [phone] 10/16 confirmed ~sl PAP 10/17/2016 Patient Education: Patient Medication Summary Completed 10/17/2016 Care Plan: MAMMOGRAM SCREENING LOINC : 2 6347-5 Pending 10/17/2016 Visit Diagnosis Plan: Other seasonal allergic rhinitis Discussion: Decadron/Garamycin Nasal [place] Mix Too soon for steroid Retry zyrtec 10mg daily ICD-9 : 477.9 ICD-10 : J30.2 10/10/2016 Appointment: María Elena Appiah WPtel: [address] [place], [place] [id number] [place] FOLLOW UP 10/10/2016 Patient Education: Patient Medication Summary Completed 10/10/2016 Appointment: Mar[facility] Appiah [facility] [phone] [facility] [id number] 10/02 reschedule `sl RESCHEDULED 10/02/2016 Visit Plan: See surgery for removal of n ew left arm lesion and right foot lesion Lyrica to use next month for left arm paresthesias Continue current meds Discussed sunscreen/sunblock combo 09/19/2016 Appointment: María Elena Appiah WPtel: [address] [place] [address] 09/18 confirmed ~sl FOLLOW UP 09/19/2016 Patient Education: Patient Medication Summary Completed 09/19/2016 Patient Education: Patient Medication Summary Completed 09/18/2016 Care Plan: MAMMOGRAM BOTH BREASTS LOINC : 34809-3 Pending 09/18/2016 Visit Plan: Discussed that needs [...] 08/24/2016 Appointment: María Elena Appiah WPtel: [address] [place] [address] ACUTE ILLNESS 08/24/2016 Patient Education: Patient Medication Summary Completed 08/24/2016 Patient Education: Patient Medication Summary Completed 08/23/2016 Care Plan: MAMMOGRAM SCREENING LOINC : 2 6347-5 Pending 08/23/2016 Visit Plan: Finish doxycycline Add Breo 100/25 1 p BID for 2 weeks If not improving within next 2 days will get CXR 08/16/2016 Appointment: María Elena Appiah WPtel: [address] [place] [address] ACUTE ILLNESS 08/16/2016 Patient Education: Patient Medication Summary Completed 08/16/2016 Visit Plan: Supportive care. Rest, Fluid s, Tylenol/Motrin prn fever or bodyaches. Notify if worsening symptoms. Doxycyline and Prednisone 08/10/2016 Appointment: María Elena Appiah WPtel: [address] [place] [address] 08/09 lm`sl....confirmed-sp FOLLOW UP 09/2015 Patient Education: Patient Medication Summary Completed 08/10/2016 Visit Plan: Saline nasal flushes prn. Ty lenol/Motrin prn headache. Notify if persists/symptoms worsening. Dexamethasone 8mg IM today May use coricedan and mucinex 08/02/2016 Appointment: María Elena Appiah WPtel: [address] [place] [address] ACUTE ILLNESS 08/02/2016 Patient Education: Patient Medication Summary Completed 08/02/2016 Visit Plan: Cryotherapy as above and lef t forearm lesion removal as above with 5-0 punch biopsy and sent to path Return in 10 days for suture removal 08/01/2016 Appointment: María Elena Appiah WPtel: [address] [place] [address] 07/31 confirmed`~ OFFICE SURGERY 08/01/2016 Patient Education: Patient Medication Summary Completed 08/01/2016 Visit Plan: Stop clindamycin Check CBC, CMP, ESR now/STAT 07/27/2016 Appointment: María Elena Appiah WPtel: [address] [place] [address] ACUTE ILLNESS 07/27/2016 Patient Education: Patient Medication Summary Completed 07/27/2016 Visit Plan: Update lab and check ABIs to start with Will likely need cardiology evaluation to rule out PVD Clindamycin for 10 days Daily yogurt or probiotic Will return for removal of left arm lesions 07/20/2016 Appointment: María Elena Appiah WPtel: [address] [place] [address] ACUTE ILLNESS 07/20/2016 Patient Education: Patient Medication Summary Completed 07/20/2016 Patient Education: Patient Medication Summary Completed 07/20/2016 Care Plan: MAMMOGRAM BOTH BREASTS LOINC : 64683-0 Pending 07/20/2016 Care Plan: US EXAM CHEST LOINC : 28434-2 Pending 07/20/2016 Visit Plan: Wound culture collected from left great toe Appearance is somewhat staph like Rx as above Wound cleanser and skin care reviewed May need to add oral antibiotic if sores do not heal or continue to reoccur 07/06/2016 Appointment: Loan Sánchez [address] [place], [place] [id number] ACUTE ILLNESS 07/06/2016 Patient Education: Patient Medication Summary Completed 07/06/2016 Appointment: María Elena Appiah WPtel: [address] [place] [address] [place] INJECTION 05/25/2016 Patient Education: Patient Medication Summary Completed 05/25/2016 Visit Plan: Saline nasal flushes prn. Ty lenol/Motrin prn headache. Notify if persists/symptoms worsening. Dexamethasone and Rocephin given 04/26/2016 Appointment: María Elena Appiah WPtel: [address] [place] [address] ACUTE ILLNESS 04/26/2016 Patient Education: Patient Medication Summary Completed 04/26/2016 Visit Plan: Check CBC, CMP, TSH, FreeT4, HbA1C, estradiol, lipids in AM 03/02/2016 Appointment: María Elena Appiah WPtel: [address] [place] [address] 03/01 lm~sl ACUTE ILLNESS 03/02/2016 Patient Education: Patient Medication Summary Completed 03/02/2016 Visit Plan: Exam is nearly normal Needs to be taking daily antihistamine Would prefer to use oral steroids instead of shot but patient insist that oral steroids cause horrible headaches for her Will given kenalog IM instead 02/09/2016 Appointment: Loan Sánchez [address] [place] [address] ACUTE ILLNESS 02/09/2016 Patient Education: Patient Medication Summary Completed 02/09/2016 Visit Plan: Culture urine Macrobid DC xa nax Trial of Ativan 1mg q HS 01/24/2016 Appointment: María Elena Appiah WPtel: [address] [place] [address] ACUTE ILLNESS 01/24/2016 Patient Education: Patient Medication Summary Completed 01/24/2016 Visit Plan: No steroid or rocephin injec tion warranted Can have oral prednisone Continue current home regimen Needs to follow up with Dr Sanchez if problems persist 12/23/2015 Appointment: Loan Sánchez [address] [place], [place] [id number] [place] ACUTE ILLNESS 12/23/2015 Patient Education: Patient Medication Summary Completed 12/23/2015 Visit Plan: Saline nasal flushes prn. Ty lenol/Motrin prn headache. Notify if persists/symptoms worsening. Kenalog 40mg IM today 12/08/2015 Appointment: María Elena Appiah WPtel: [address] [place] [address] 12/06 confirmed~ ACUTE ILLNESS 12/08/2015 Patient Education: Patient Medication Summary Completed 12/08/2015 Appointment: María Elena Appiah WPtel: [address] [place] [address] ACUTE ILLNESS 11/18/2015 Patient Education: Patient Medication Summary Completed 10/11/2015 Appointment: María Elena Appiah WPtel: [address] [place] [address] [place] INJECTION 10/07/2015 Patient Education: Patient Medication Summary Completed 10/07/2015 Visit Plan: Check renal arterial doppler s and ECHO Change amlodopine to lotrel 5/20mg q HS Will need stress test as well Check CMP, uric acid, ESR 10/06/2015 Appointment: María Elena Appiah WPtel: [address] [place] [address] ACUTE ILLNESS 10/06/2015 Patient Education: Patient Medication Summary Completed 10/06/2015 Patient Education: [facility] - Saving [employer] - Amlodipine Besylate - 18-64 - Dynamic Portal ID Completed 10/06/2015 Appointment: María Elena Appiah WPtel: [address] [place] [address] FOLLOW UP 09/22/2015 Visit Plan: Cephalexin 500 mg PO bid Mery ly topical Mupirocin to lesions on left lateral neck and face Follow-up in one week. Sooner if symptoms worsen 09/14/2015 Appointment: June Flores WPtel: [address] [place] [address] ACUTE ILLNESS 09/14/2015 Patient Education: Patient Medication Summary Completed 09/14/2015 Visit Plan: Change bystolic to bedtime d osing and amlodopine to morning dosing Cryotherapy as above to AKs 09/07/2015 Appointment: María Elena Appiah WPtel: [address] [place] [address] 09/06 appointment made and confirmed ~sl FOLLOW UP 09/07/2015 Patient Education: Patient Medication Summary Completed 09/07/2015 Visit Plan: Increase bystolic back to 20 mg daily but will split and take 10mg in AM and 10mg in PM Stress Reducers 08/18/2015 Appointment: María Elena Appiah WPtel: [address] [place] [address] 08/17/15 appt confirmed cn ACUTE ILLNESS 08/18 Patient Education: Patient Medication Summary Completed 08/18/2015 Appointment: María Elena Appiah WPtel: [address] [place] [address] BP CHECK 07/07/2015 Patient Education: Patient Medication Summary Completed 07/07/2015 Appointment: María Elena Appiah WPtel: [address] [place] [address] BP CHECK 06/24/2015 Patient Education: Patient Medication Summary Completed 06/24/2015 Appointment: María Elena Appiah WPtel: [address] [place] [address] BP CHECK 06/21/2015 Patient Education: Patient Medication Summary Completed 06/21/2015 Visit Plan: Lab discussed Continue curre nt meds and lifestyle modification Recheck lab in 6mos 06/16/2015 Appointment: María Elena Appiah WPtel: [address] [place] [address] 06/15 confirmed FOLLOW UP 06/16/2015 Patient Education: Patient Medication Summary Completed 06/16/2015 Patient Education: Patient Medication Summary Completed 06/15/2015 Visit Plan: Increase cymbalta to 60mg q HS Keep clonidine at current dose Recheck 2weeks Change xanax to klonopin 06/02/2015 Appointment: María Elena Appiah WPtel: [address] [place] [address] 06/02 FOLLOW UP 06/02/2015 Patient Education: Patient Medication Summary Completed 06/02/2015 Appointment: María Elena Appiah WPtel: [address] [place] [address] ACUTE ILLNESS 05/24/2015 Visit Plan: Increase clonidine to 0.2mg q HS Add cymbalta 30mg q HS Recheck 2weeks Stress Reducers Check fasting lab Discussed sleep study 05/20/2015 Appointment: María Elena Appiah WPtel: [address] [place] [address] ACUTE ILLNESS 05/20/2015 Patient Education: Patient Medication Summary Completed 05/20/2015 Patient Education: [facility] - [employer]aving [employer] - Cymbalta - 18-64 - Dynamic Portal ID Completed 05/20/2015 Appointment: María Elena Appiah WPtel: [address] [place] [address] BP CHECK 05/19/2015 Patient Education: Patient Medication Summary Completed 05/19/2015 Visit Plan: Topical Bactroban alternatin g with topical betamethasone Recheck 2weeks 05/10/2015 Appointment: María Elena Appiah WPtel: [address] [place] [address] 05/07 vm cn...05/07 appt confirmed OFFICE SURGER Y 05/10/2015 Patient Education: Patient Medication Summary Completed 05/10/2015 Referral: Patrick Chandler WPtel: [facility] [address] Referral Initiated 05/04/2015 Visit Plan: Saline nasal flushes prn. Ty lenol/Motrin prn headache. Notify if persists/symptoms worsening. Depomedrol 40mg IM today 03/16/2015 Appointment: Maraí Elena Appiah WPtel: [address] [place], [place] [id number] ACUTE ILLNESS 03/16/2015 Patient Education: Patient Medication Summary Completed 03/16/2015 Appointment: María Elena Appiah WPtel: [address] [place], [place] [phone] ER Follow UP 03/09/2015 Visit Plan: Cryotherapy to lesions as ab ove 10/27/2014 Appointment: María Elena Appiah WPtel: [address] [place], [place] [phone] OFFICE SURGERY 10/27/2014 Patient Education: Patient Medication Summary Completed 10/27/2014 Appointment: June Flores WPtel: [address] [place], [place] [id number] ACUTE ILLNESS 09/11/2014 Patient Education: Patient Medication Summary Completed 09/11/2014 Visit Plan: Lab discussed Lipitor 10mg d aily Coenzyme Q-10 400mg daily Vitamin D3 5000u daily Recheck lipids with LFTs in 3mos then fwup 08/31/2014 Appointment: María Elena Appiah WPtel: [address] [place] [address] 08/28 voicemail FOLLOW UP 08/31/2014 Patient Education: Patient Medication Summary Completed 08/31/2014 Appointment: María Elena Appiah WPtel: [address] [place], [place] [phone] [place] LAB 08/27/2014 Appointment: María Elena Appiah WPtel: [address] [place], [place] [phone] [place] LAB 08/27/2014 Patient Education: Patient Medication Summary Completed 08/27/2014 Appointment: María Elena Appiah WPtel: [address] [place], [place] [phone] ACUTE ILLNESS 07/23/2014 Appointment: María Elena Appiah WPtel: [address] [place], [place] [phone] ACUTE ILLNESS 07/21/2014 Patient Education: Patient Medication Summary Completed 07/21/2014 Visit Plan: Kenalog 40mg IM today Contin juancarlose narendra and tamara Add Flonase 07/15/2014 Appointment: María Elena Appiah WPtel: [address] [place] [address] ACUTE ILLNESS 07/15/2014 Appointment: María Elena Appiah WPtel: [address] [place] [address] ACUTE ILLNESS 07/15/2014 Patient Education: Patient Medication Summary Completed 07/15/2014 Visit Plan: Will do metolazone 2.5mg prn with 6 potassium and see if causes as severe cramping Trial of of seroquel XR 50mg q PM with evening meal and let us know how works 05/18/2014 Appointment: María Elena Appiah WPtel: [address] [place] [address] 05/15 left message FOLLOW UP 05/18/2014 Patient Education: Patient Medication Summary Completed 05/18/2014 Appointment: María Elena Appiah WPtel: [address] [place] [address] LAB 05/14/2014 Patient Education: Patient Medication Summary Completed 05/14/2014 Appointment: María Elena Appiah WPtel: [address] [place], [place] [phone] [place] INJECTION 04/22/2014 Visit Plan: Rocephin and Kenalog today a nd finish abx given from urgent care 04/21/2014 Appointment: María Elena Appiah WPtel: [address] [place] [address] [place] INJECTION 04/21/2014 Patient Education: Patient Medication Summary Completed 04/21/2014 Appointment: June Flores WPtel: [address] [place] [address] ACUTE ILLNESS 03/04/2014 Patient Education: Patient Medication Summary Completed 03/04/2014 Appointment: María Elena Appiah WPtel: [address] [place] [address] US INJECTION 02/27/2014 Patient Education: Patient Medication Summary Completed 02/27/2014 Visit Plan: Cryotherapy as above to all lesions Patient wants to try no meds for insomnia for a while and see how goes 01/13/2014 Appointment: María Elena Appiah WPtel: [address] [place] [address] OFFICE SURGERY 01/13/2014 Patient Education: Patient Medication Summary Completed 01/13/2014 Visit Plan: Stop Melatonin Stop Soma Tri al of trazadone 75mg q HS See ENT for possible tubes as has had chronic ETD and serous otitis media with numerous steroids 12/24/2013 Appointment: María Elena Appiah WPtel: [address] [place] [address] ACUTE ILLNESS 12/24/2013 Patient Education: Patient Medication Summary Completed 12/24/2013 Visit Plan: Saline nasal flushes prn. Ty lenol/Motrin prn headache. Notify if persists/symptoms worsening. 11/12/2013 Appointment: María Elena Appiah WPtel: [address] [place] [address] ACUTE ILLNESS 11/12/2013 Patient Education: Patient Medication Summary Completed 11/12/2013 Appointment: María Elena Appiah WPtel: [address] [place] [address] ACUTE ILLNESS 10/21/2013 Patient Education: Patient Medication Summary Completed 10/21/2013 Visit Plan: Sleep hygiene and sleep rout ine Melatonin 10mg q HS Support stockings and observe 09/22/2013 Appointment: María Elena Appiah WPtel: [address] [place] [address] ACUTE ILLNESS 09/22/2013 Patient Education: Patient Medication Summary Completed 09/22/2013 Appointment: June Flores WPtel: [address] [place] [address] ACUTE ILLNESS 08/27/2013 Patient Education: Patient Medication Summary Completed 08/27/2013 Visit Plan: Proceed with CT scan of head /neck Proceed with occipital nerve injections Butrans 20mcg patch weekly until can get into see Dr. Mcdonough for injections 08/04/2013 Appointment: María Elena Appiahtel: [address] [place] [address] FOLLOW UP 08/04/2013 Patient Education: Patient Medication Summary Completed 08/04/2013 Visit Plan: OMT done Daily neck stretche s, moist heat Increase Celebrex to 200mg BID Add flexeril 07/23/2013 Appointment: Maraí Elena Appiah WPtel: [address] [place] [address] 07/22 voicemail FOLLOW UP 07/23/2013 Patient Education: Patient Medication Summary Completed 07/23/2013 Appointment: María Elena Appiah WPtel: [address] [place] [address] ACUTE ILLNESS 06/23/2013 Patient Education: Patient Medication Summary Completed 06/23/2013 Appointment: María Elena Appiahtel: [address] [place] [address] ACUTE ILLNESS 05/26/2013 Patient Education: Patient Medication Summary Completed 05/26/2013 Visit Plan: Decrease clonidine to 0.1mg TID If BP remains stable consider decreasing amlodopine Prednisone for 5 days BP check in 1mo 04/16/2013 Appointment: María Elena Appiah WPtel: [address] [place] [address] 04/14 pt called and confirmed appt FOLLOW UP 04/16/2013 Patient Education: Patient Medication Summary Completed 04/16/2013 Appointment: María Elena Appiahtel: [address] [place] [address] ACUTE ILLNESS 03/05/2013 Patient Education: Patient Medication Summary Completed 03/05/2013 Visit Plan: Pt has MARIA ELENA on with Dr. Mcdonough Continue Butrans patch Refill Hydrocodone early tomorrow 12/23/2012 Appointment: María Elena Appiah WPtel: [address] [place] [address] FOLLOW UP 12/23/2012 Patient Education: Patient Medication Summary Completed 12/23/2012 Appointment: Lashawn Eckert WPtel: [address] [place] [address] ACUTE ILLNESS 12/16/2012 Patient Education: Patient Medication Summary Completed 12/16/2012 Visit Plan: Proceed with updated MRI of LS spine Continue gabapentin and add soma and diclofenac Will likely need to go for another epidural 12/09/2012 Appointment: María Elena Appiah WPtel: [address] [place] [address] ACUTE ILLNESS 12/09/2012 Patient Education: Patient Medication Summary Completed 12/09/2012 Visit Plan: Injection as above Finish me drol dose pack Chiropracter this afternoon 12/04/2012 Appointment: María Elena Appiah WPtel: [address] [place] [address] ACUTE ILLNESS 12/04/2012 Patient Education: Patient Medication Summary Completed 12/04/2012 Appointment: Mary Tillman WPtel: [address] [place] [address] FOLLOW UP 11/22/2012 Patient Education: Patient Medication Summary Completed 11/22/2012 Appointment: María Elena Appiah WPtel: [address] [place] [address] ACUTE ILLNESS 11/21/2012 Patient Education: Patient Medication Summary Completed 11/21/2012 Appointment: María Elena Appiah WPtel: [address] [place] [address] BP CHECK 11/07/2012 Patient Education: Patient Medication Summary Completed 11/07/2012 Visit Plan: reports extra clonidine and extra amlodipine and extra alprazalam. extra Ketolorac and promethazine last night. Bystolic 10 mg QAM and will continue all other blood pressure meds. Pt. encouraged to rest and hydrate. Discussed stroke and NV symptoms. Pt. instructed to seek ER eval if symptoms worsen or headache persists. Pt. agrees to ER eval/EMS transport if symptoms worsen. BP re-check. 10/29/2012 Appointment: Lashawn Eckert WPtel: [address] [place] [address] ACUTE ILLNESS 10/29/2012 Patient Education: Patient Medication Summary Completed 10/29/2012 Appointment: María Elena Appiah WPtel: [address] [place] [address] ACUTE ILLNESS 10/14/2012 Patient Education: Patient Medication Summary Completed 10/14/2012 Appointment: María Elena Appiah WPtel: [address] [place] [address] 09/27/2012 Patient Education: Patient Medication Summary Completed 09/27/2012 Appointment: María Elena Appiah WPtel: [address] [place] [address] ACUTE ILLNESS 09/25/2012 Patient Education: Patient Medication Summary Completed 09/25/2012 Appointment: María Elena Appiah WPtel: [address] [place] [address] BP CHECK 09/24/2012 Appointment: María Elena Appiah WPtel: [address] [place] [address] ACUTE ILLNESS 08/29/2012 Patient Education: Patient Medication Summary Completed 08/29/2012 Visit Plan: Cryotherapy as above See Karlos m for right ear lesion--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 ACUTE ILLNESS 05/06/2012 Patient Education: Patient Medication Summary Completed 05/06/2012 Visit Plan: Pt wants to hold on any furt her sleep medications 04/03/2012 Appointment: María Elena Appiah WPtel: [address] [place], [place] [phone] FOLLOW UP 04/03/2012 Patient Education: Patient Medication Summary Completed 04/03/2012 Appointment: María Elena Appiah WPtel: [address] [place], [place] [phone] FOLLOW UP 03/19/2012 Patient Education: Patient Medication Summary Completed 03/19/2012 Appointment: María Elena Appiahtel: [address] [place] [address] BP CHECK 02/22/2012 Patient Education: Patient Medication Summary Completed 02/22/2012 Appointment: María Elena Appiahtel: [address] [place] [address] BP CHECK 02/21/2012 Patient Education: Patient Medication Summary Completed 02/21/2012 Visit Plan: Doxycycline and bactroban fo r foot Supportive care on ankles and knees Add norvasc for BP 02/20/2012 Appointment: María Elena Appiah WPtel: [address] [place], [place] [phone] ER Follow UP 02/20/2012 Patient Education: Patient Medication Summary Completed 02/20/2012 Appointment: María Elena Appiah WPtel: [address] [place], [place] [phone] ACUTE ILLNESS 01/30/2012 Patient Education: Patient Medication Summary Completed 01/30/2012 Appointment: María Elena Appiah WPtel: [address] [place], [place] [phone] ACUTE ILLNESS 01/24/2012 Patient Education: Patient Medication Summary Completed 01/24/2012 Visit Plan: Daily back stretches, moist heat, Biofreeze prn OMT done 01/10/2012 Appointment: María Elena Appiah WPtel: [address] [place] [address] ACUTE ILLNESS 01/10/2012 Patient Education: Patient Medication Summary Completed 01/10/2012 Appointment: María Elena Appiah WPtel: [address] [place] [address] FOLLOW UP 12/11/2011 Patient Education: Patient Medication Summary Completed 12/11/2011 Appointment: María Elena Appiah WPtel: [address] [place] [address] ACUTE ILLNESS 11/09/2011 Patient Education: Patient Medication Summary Completed 11/09/2011 Appointment: María Elena Appiah WPtel: [address] [place] [address] ACUTE ILLNESS 09/13/2011 Patient Education: Patient Medication Summary Completed 09/13/2011 Visit Plan: Check CBC, TSH, Free T4, CMP , ESR, Vit D, B12 now Start Prednisone today 08/31/2011 Appointment: María Elena Appiah WPtel: [address] [place] [address] ACUTE ILLNESS 08/31/2011 Patient Education: Patient Medication Summary Completed 08/31/2011 Appointment: María Elena Appiah WPtel: [address] [place] [address] US INJECTION 07/20/2011 Patient Education: Patient Medication Summary Completed 07/20/2011 Visit Plan: Continue current meds Monite r BP Cont stretches from PT 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 07/06/2011 Appointment: María Elena Appiah WPtel: [address] [place] [address] US FOLLOW UP 07/06/2011 Patient Education: Patient Medication Summary Completed 07/06/2011 Appointment: María Elena Appiah WPtel: [address] [place], [place] [phone] BP CHECK 06/06/2011 Patient Education: Patient Medication Summary Completed 06/06/2011 Visit Plan: Add Bystolic at 2.5mg QAM Ad d Robaxin 750mg 2 po q HS BP check in 2wks 05/22/2011 Appointment: María Elena Appiah WPtel: [address] [place], [place] [phone] FOLLOW UP 05/22/2011 Patient Education: Patient Medication Summary Completed 05/22/2011 Appointment: María Elena Appiah WPtel: [address] [place], [place] [phone] ER Follow UP 05/09/2011 Patient Education: Patient Medication Summary Completed 05/09/2011 Appointment: María Elena Appiah WPtel: [address] [place], [place] [phone] US FOLLOW UP 02/22/2011 Visit Plan: Rx written for Hydrocodone 1 0/325mg #240 See Ortho 02/14/2011 Appointment: María Elena Appiha WPtel: [address] [place], [place] [phone] OMT 02/14/2011 Patient Education: Patient Medication Summary [...] lab work. 02/03/2011 Appointment: Lashawn Eckert WPtel: [address] [place] [address] ACUTE ILLNESS 02/03/2011 Patient Education: Patient Medication Summary Completed 02/03/2011 Visit Plan: OMT done Cont daily stretche s 01/31/2011 Appointment: María Elena Appiah WPtel: [address] [place] [address] ACUTE ILLNESS 01/31/2011 Patient Education: Patient Medication Summary Completed 01/31/2011 Visit Plan: Continue pain meds OMT done Proceed with PT No work this summer01/25/2011 Appointment: María Elena Appiah WPtel: [address] [place] [address] ACUTE ILLNESS 01/25/2011 Patient Education: Patient Medication Summary Completed 01/25/2011 Visit Plan: Start PT Long discussion abo ut getting pain meds from only us and can only have max of 4grams of tylenol per day Change to Hydrocodone 10/325mg 1- 2 po TID prn pain--#180 called to [facility] 01/18/2011 Appointment: María Elena Appiah WPtel: [address] [place] [address] FOLLOW UP 01/18/2011 Patient Education: Patient Medication Summary Completed 01/18/2011 Visit Plan: Daily back stretches, moist heat, Biofreeze prn 11/29/2010 Appointment: María Elena Appiah WPtel: [address] [place] [address] ER Follow UP 11/29/2010 Patient Education: Patient Medication Summary Completed 11/29/2010 Visit Plan: Saline nasal flushes prn. Ty lenol/Motrin prn headache. Notify if persists/symptoms worsening. Finish augmentin Add Medrol Dose Pack 10/10/2010 Appointment: María Elena Appiah WPtel: [address] [place] [address] ACUTE ILLNESS 10/10/2010 Patient Education: Patient Medication Summary Completed 10/10/2010 Visit Plan: Cryotherapy x3 to multiple l esions on both forearms 07/19/2010 Appointment: María Elena Appiahtel: [address] [place] [address] OFFICE SURGERY 07/19/2010 Patient Education: Patient Medication Summary Completed 07/19/2010 Appointment: María Elena Appiah WPtel: [address] [place] [address] BP CHECK 07/06/2010 Patient Education: Patient Medication Summary Completed 07/06/2010 Appointment: María Elena Appiahtel: [address] [place] [address] BP CHECK 06/30/2010 Patient Education: Patient Medication Summary Completed 06/30/2010 Appointment: María Elena Appiahtel: [address] [place] [address] BP CHECK 06/20/2010 Patient Education: Patient Medication Summary Completed 06/20/2010 Visit Plan: Change Diovan to Exforge 160 /5mg QD OMT done to thoracics BP check in 2wks 06/07/2010 Appointment: María Elena Appiahtel: [address] [place] [address] FOLLOW UP 06/07/2010 Patient Education: Patient Medication Summary Completed 06/07/2010 Appointment: María Elena Appiahtel: [address] [place] [address] [place] BP CHECK 06/03/2010 Patient Education: Patient Medication Summary Completed 06/03/2010 Appointment: María Elena Appiahtel: [address] [place] [address] [place] BP CHECK 06/01/2010 Patient Education: Patient Medication Summary Completed 06/01/2010 Visit Plan: Irritated skin tags to left neck x2 excised at base with scissors and base cauterized 05/30/2010 Appointment: María Elena Appiah WPtel: [address] [place] [address] OFFICE SURGERY 05/30/2010 Patient Education: Patient Medication Summary Completed 05/30/2010 Visit Plan: Saline nasal flushes prn. Ty lenol/Motrin prn headache. Notify if persists/symptoms worsening. Restart Nasonex Has allergy testing set for May 25 04/27/2010 Appointment: María Elena Appiahtel: [address] [place] [address] ACUTE ILLNESS 04/27/2010 Patient Education: Patient Medication Summary Completed 04/27/2010 Visit Plan: Saline nasal flushes prn. Ty lenol/Motrin prn headache. Notify if persists/symptoms worsening. Omnaris BID plus injections 04/05/2010 Appointment: María Elena Appiah WPtel: [address] [place] [address] ACUTE ILLNESS 04/05/2010 Patient Education: Patient Medication Summary Completed 04/05/2010 Visit Plan: Saline nasal flushes prn. Ty lenol/Motrin prn headache. Notify if persists/symptoms worsening. 03/09/2010 Appointment: María Elena Appiahtel: [address] [place] [address] ACUTE ILLNESS 03/09/2010 Patient Education: Patient Medication Summary Completed 03/09/2010 Visit Plan: Cont Clonidine as is Cont Pr emarin Fwup with surgery as scheduled 03/03/2010 Appointment: María Elena Appiahtel: [address] [place] [address] FOLLOW UP 03/03/2010 Patient Education: Patient Medication Summary Completed 03/03/2010 Visit Plan: Check Pelvic US now Dukee tacho Sal C vs Hysterectomy 01/17/2010 Appointment: María Elena Appiahtel: [address] [place] [address] ACUTE ILLNESS 01/17/2010 Patient Education: Patient Medication Summary Completed 01/17/2010 Visit Plan: Check fasting lab and schedu le Mammogram 2gm Na Diet Trial of Ambien 10mg qhs Fwup pending lab results 12/27/2009 Appointment: María Elena Appiah WPtel: [phone] [id number] [place] ESTABLISHED PATIENT 12/27/2009 Patient Education: Patient Medication Summary Completed 12/27/2009 Referral: Canelo Overton WPtel: [phone] [id number] [place] Referral Initiated Referral: Philipp Flores WPtel: [address] [id number] [place] Referral Appointment Requested Instructions Comment . [...] to rest and hydrate. Discussed stroke and NV symptoms. Pt. instructed to seek ER eval [...]
--- OUTSIDE RECORDS SUMMARY | 2020-03-13 05:43 | XMS REPORT | CCD ---
Author Author Gale Appiah D.O. 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 Name Role Phone María Elena Appiah D.O., PP Unavailable CCM Unavailable Summary Purpose Interface Exchange Insurance Providers Payer name Policy type / Coverage type Covered republican ID Effective Begin Date Effective End Date [facility] Commercial Insurance [id number] Unknown Family History Family History data not found Social History Social History Element Codes Description Effective Dates Tobacco history SNOMED CT: [id number] Never smoker 05/22/2011 Allergies, Adverse Reactions, Alerts [...] Fill Instructions cyclobenzaprine 10 mg tablet RxNorm: 759409 TAKE ONE TA BLET BY MOUTH THREE TIMES A DAY NEEDED FOR MUSCLE SPASMS 10/23/2019 No Stop Date Active duloxetine 60 mg capsule,delayed release RxNorm: 406362 1 Capsu le(s) Oral QD 10/17/2019 04/13/2020 Active celecoxib 200 mg capsule RxNorm: 989337 1 Capsule(s) Or al two times a day as needed for pain 10/17/2019 01/14/2020 Active lisinopril 20 mg tablet RxNorm: 243419 1 Tablet(s) Oral QD 10/17/19 20 04/13/2020 Active gabapentin 300 mg capsule RxNorm: 451108 1 Capsule(s) O ral every night at bedtime 10/17/2019 01/15/2020 Active Singulair 10 mg tablet RxNorm: 597816 1 Tablet(s) Oral QD 10/17/2019 04/14/2020 Active Klor-Con 8 mEq tablet,extended release RxNorm: 654522 1 Tablet(s) Oral two times a day 10/17/2019 11/16/2019 Active metoprolol tartrate 100 mg tablet RxNorm: 264101 1 Tabl et(s) Oral two times a day 10/17/2019 04/13/2020 Active clonidine HCl 0.1 mg tablet RxNorm: 618071 1 Tablet(s) Oral fou r times a day 10/17/2019 04/13/2020 Active Januvia 100 mg tablet RxNorm: 749439 1 Tablet(s) Oral QD 10/17/2019 No Stop Date Active Lipitor 10 mg tablet RxNorm: 649200 1 Tablet(s) Oral QD 10/17/2019 Active Steglatro 15 mg tablet RxNorm: 8297706 1 Tablet(s) Oral QD 10/17/19 No Stop Date Active Glyxambi 25 mg-5 mg tablet RxNorm: 5364172 1 Tablet(s) Oral QD 01/202010/16/2019 Inactive Patient will bring in copay discount card as well Glyxambi 25 mg-5 mg tablet RxNorm: 5326907 1 Tablet(s) Oral QD 01/202010/14/2019 Inactive Patient will bring in copay discount card as well Keflex 500 mg capsule RxNorm: 456704 1 Capsule(s) Oral two time s a day 10/07/2019 10/14/2019 Inactive Premarin 1.25 mg tablet RxNorm: 070112 1 Tablet(s) Oral QD 09/30/1906/25/2020 Active hydrocodone 10 mg-acetaminophen 325 mg tablet RxNorm: 636486 1-2 Tablet(s) Oral three times a day as needed for pain 09/30/2019 09/30/2019 Inactive baclofen 10 mg tablet RxNorm: 474191 TAKE ONE TABLET BY MOUTH THREE TIMES A DAY NEEDED 09/19/2019 No Stop Date Active gabapentin 300 mg capsule RxNorm: 939971 TAKE ONE CAPSU LE BY MOUTH EVERY NIGHT AT BEDTIME 09/19/2019 10/16/2019 Inactive Klor-Con 8 mEq tablet,extended release RxNorm: 531430 T FARRUKH ONE TABLET BY MOUTH TWICE A DAY 1 Tablet(s) Oral two times a day 09/19/2019 10/16/2019 Renu ctive hydrocodone 10 mg-acetaminophen 325 mg tablet RxNorm: 283815 1-2 Tablet(s) Oral three times a day as needed for pain 09/19/2019 09/29/2019 Inactive triamterene 75 mg-hydrochlorothiazide 50 mg tablet RxNorm: 3 03093 TAKE ONE TABLET BY MOUTH DAILY 09/11/2019 No Stop Date Active allopurinol 300 mg tablet RxNorm: 670446 TAKE ONE TABLET BY LOPEZ TH DAILY 09/11/2019 No Stop Date Active duloxetine 60 mg capsule,delayed release RxNorm: 503578 TAKE ONE CAPSULE BY MOUTH DAILY 09/11/2019 10/16/2019 Inactive Lipitor 10 mg tablet RxNorm: 388445 TAKE ONE TABLET BY MOUTH AT BEDTIME 09/11/2019 10/16/2019 Inactive lisinopril 20 mg tablet RxNorm: 343128 TAKE ONE TABLET BY MOUTH DAILY .... THIS REPLACE 10MG TABLETS 09/11/2019 10/16/2019 Inactive celecoxib 200 mg capsule RxNorm: 497557 TAKE ONE CAPSUL E BY MOUTH TWICE A DAY NEEDED FOR PAIN 09/11/2019 10/16/2019 Inactive clonidine HCl 0.1 mg tablet RxNorm: 478379 TAKE ONE TAB LET BY MOUTH FOUR TIMES A DAY 09/11/2019 10/16/2019 Inactive doxepin 25 mg capsule RxNorm: 6430748 1 Capsule(s) Oral every night at bedtime as needed for sleep 08/21/2019 11/18/2019 Active hydrocodone 10 mg-acetaminophen 325 mg tablet RxNorm: 674569 1-2 Tablet(s) PO TID 08/12/2019 09/29/2019 Inactive as needed for pa in - Previous quantity #240, will start dosing for #180 in April 2011 per Doctor Td. Medrol (Dustin) 4 mg tablets in a dose pack RxNorm: 947628 Tablet(s) Oral As Directed 07/21/2019 09/29/2019 Inactive Premarin 1.25 mg tablet RxNorm: 140344 1 Tablet(s) Oral QD 07/02/20 19 09/29/2019 Inactive hydrocodone 10 mg-acetaminophen 325 mg tablet RxNorm: 479781 1-2 Tablet(s) PO TID 07/01/2019 08/11/2019 Inactive as needed for pa in - Previous quantity #240, will start dosing for #180 in April 2011 per Doctor Mariveler. gabapentin 300 mg capsule RxNorm: 641054 1 Capsule(s) PO QHS 201809/18/2019 Inactive celecoxib 200 mg capsule RxNorm: 556300 1 Capsule(s) Or al two times a day as needed for pain 06/27/2019 06/27/2019 Inactive furosemide 40 mg tablet RxNorm: 721064 TAKE ONE TABLET BY MOUTH EVERY MORNING NEEDED FOR EDEMA . TAKE WITH POTASSIUM 06/24/2019 No Stop Date Active doxepin 25 mg capsule RxNorm: 7057930 TAKE ONE CAPSULE B Y MOUTH EVERY NIGHT AT BEDTIME NEEDED FOR SLEEP 06/24/2019 08/20/2019 Inactive Singulair 10 mg tablet RxNorm: 935031 TAKE ONE TABLET BY MOUTH JOSÉ Y 06/24/2019 10/16/2019 Inactive lisinopril 20 mg tablet RxNorm: 937390 TAKE ONE TABLET BY MOUTH DAILY .... THIS REPLACE 10MG TABLETS 06/24/2019 09/10/2019 Inactive nystatin-triamcinolone 100,000 unit/g-0.1 % topical cream Rx Norm: 3686681 1 Application Topical two times a day 06/12/2019 06/19/2019 Inactive apply BID for 1 week nystatin-triamcinolone 100,000 unit/g-0.1 % topical cream Rx Norm: 1632800 1 Application Topical two times a day 06/12/2019 06/11/2019 Inactive apply BID for 1 week hydrocodone 10 mg-acetaminophen 325 mg tablet RxNorm: 469181 1-2 Tablet(s) PO QID as needed for pain MUST LAST 30 DAYS 05/28/2019 06/26/2019 Inactiv e (Response to an electronic controlled substance refill request - RxReferenceNumber: [id number]) baclofen 20 mg tablet RxNorm: 081650 1 Tablet(s) PO TID as needed for muscle spasm 05/19/2019 05/27/2019 Inactive gabapentin 300 mg capsule RxNorm: 427803 1 Capsule(s) PO QHS 201805/27/2019 Inactive lisinopril 20 mg tablet RxNorm: 931526 1 Tablet(s) PO Q D TAKE ONE TABLET BY MOUTH DAILY, REPLACES 10 MG DOSE 05/19/2019 06/23/2019 Inactive doxepin 25 mg capsule RxNorm: 8823411 TAKE ONE CAPSULE B Y MOUTH EVERY NIGHT AT BEDTIME NEEDED FOR SLEEP 05/16/2019 06/14/2019 Inactive lisinopril 20 mg tablet RxNorm: 118197 TAKE ONE TABLET BY MOUTH DAILY, REPLACES 10 MG DOSE 05/16/2019 05/18/2019 Inactive Singulair 10 mg tablet RxNorm: 219106 TAKE ONE TABLET BY MOUTH JOSÉ Y 05/16/2019 06/14/2019 Inactive gabapentin 300 mg capsule RxNorm: 842622 1 Capsule(s) PO QHS 201805/04/2019 Inactive estropipate 1.5 mg tablet RxNorm: 737976 1 Tablet(s) PO QD 05/05/2005/27/2019 Inactive estropipate 1.5 mg tablet RxNorm: 654478 1 Tablet(s) PO QD 05/05/20 19 05/04/2019 Inactive gabapentin 300 mg capsule RxNorm: 560677 1 Capsule(s) PO QHS 201805/18/2019 Inactive hydrocodone 10 mg-acetaminophen 325 mg tablet RxNorm: 607031 1-2 Tablet(s) PO QID as needed for pain MUST LAST 30 DAYS 04/25/2019 05/24/2019 Inactiv e (Response to an electronic controlled substance refill request - RxReferenceNumber: [id number]) cyclobenzaprine 10 mg tablet RxNorm: 877158 TAKE ONE TA BLET BY MOUTH THREE TIMES A DAY NEEDED FOR MUSCLE SPASMS 04/24/2019 05/18/2019 Inactive metoprolol tartrate 100 mg tablet RxNorm: 902901 TAKE O NE TABLET BY MOUTH TWICE A DAY 04/24/2019 10/16/2019 Inactive Lyrica 75 mg capsule RxNorm: 523202 1 Capsule(s) PO QHS 03/25/2019 Inactive duloxetine 60 mg capsule,delayed release RxNorm: 215492 TAKE ONE CAPSULE BY MOUTH DAILY 03/21/2019 05/19/2019 Inactive triamterene 75 mg-hydrochlorothiazide 50 mg tablet RxNorm: 3 97228 TAKE ONE TABLET BY MOUTH DAILY 03/21/2019 05/19/2019 Inactive Klor-Con 8 mEq tablet,extended release RxNorm: 098455 T FARRUKH ONE TABLET BY MOUTH TWICE A DAY 03/21/2019 09/18/2019 Inactive Lipitor 10 mg tablet RxNorm: 927812 TAKE ONE TABLET BY MOUTH AT BEDTIME 03/21/2019 09/10/2019 Inactive clonidine HCl 0.1 mg tablet RxNorm: 468457 TAKE ONE TAB LET BY MOUTH FOUR TIMES A DAY 03/21/2019 05/19/2019 Inactive allopurinol 300 mg tablet RxNorm: 348954 TAKE ONE TABLET BY LOPEZ TH DAILY 03/21/2019 05/19/2019 Inactive hydrocodone 10 mg-acetaminophen 325 mg tablet RxNorm: 290867 1-2 Tablet(s) PO QID as needed for pain MUST LAST 30 DAYS 02/28/2019 03/29/2019 Inactiv e (Response to an electronic controlled substance refill request - RxReferenceNumber: [id number]) furosemide 40 mg tablet RxNorm: 845951 TAKE ONE TABLET BY MOUTH EVERY MORNING NEEDED FOR EDEMA . TAKE WITH POTASSIUM 02/21/2019 03/22/2019 Inactive cyclobenzaprine 10 mg tablet RxNorm: 947388 TAKE ONE TA BLET BY MOUTH THREE TIMES A DAY NEEDED FOR MUSCLE SPASMS 02/21/2019 04/21/2019 Inactive lisinopril 20 mg tablet RxNorm: 968142 TAKE ONE TABLET BY MOUTH DAILY, REPLACES 10 MG DOSE 02/21/2019 05/15/2019 Inactive doxepin 25 mg capsule RxNorm: 0433440 TAKE ONE CAPSULE B Y MOUTH EVERY NIGHT AT BEDTIME NEEDED FOR SLEEP 02/21/2019 05/15/2019 Inactive nystatin 100,000 unit/gram topical cream RxNorm: 549465 APPLY TO AFFECTED AREA(S) TWO TIMES A DAY 02/21/2019 03/22/2019 Inactive estradiol 1 mg tablet RxNorm: 588576 2 Tablet(s) PO QD replaces premarin 01/22/2019 05/04/2019 Inactive lisinopril 20 mg tablet RxNorm: 931507 TAKE ONE TABLET BY MOUTH DAILY, REPLACES 10 MG DOSE 01/20/2019 02/18/2019 Inactive cyclobenzaprine 10 mg tablet RxNorm: 590646 TAKE ONE TA BLET BY MOUTH THREE TIMES A DAY NEEDED FOR MUSCLE SPASMS 01/20/2019 02/18/2019 Inactive metoprolol tartrate 100 mg tablet RxNorm: 189204 TAKE O NE TABLET BY MOUTH TWICE A DAY 01/20/2019 02/18/2019 Inactive cyclobenzaprine 10 mg tablet RxNorm: 808092 TAKE ONE TA BLET BY MOUTH THREE TIMES A DAY NEEDED FOR MUSCLE SPASMS 12/19/2018 01/17/2019 Inactive lisinopril 20 mg tablet RxNorm: 007548 TAKE ONE TABLET BY MOUTH DAILY, REPLACES 10 MG DOSE 12/19/2018 01/17/2019 Inactive duloxetine 60 mg capsule,delayed release RxNorm: 152441 TAKE ONE CAPSULE BY MOUTH DAILY 12/19/2018 01/17/2019 Inactive Lipitor 10 mg tablet RxNorm: 764062 TAKE ONE TABLET BY MOUTH AT BEDTIME 12/19/2018 01/17/2019 Inactive cyclobenzaprine 10 mg tablet RxNorm: 869466 1 Tablet(s) PO TID as needed for muscle spasm 11/19/2018 12/18/2018 Inactive Singulair 10 mg tablet RxNorm: 172357 1 Tablet(s) PO QD 11/19/2018 Inactive lisinopril 20 mg tablet RxNorm: 931269 TAKE ONE TABLET BY MOUTH DAILY, REPLACES 10 MG DOSE 11/15/2018 12/18/2018 Inactive hydrocodone 10 mg-acetaminophen 325 mg tablet RxNorm: 039800 1-2 Tablet(s) PO QID as needed for pain MUST LAST 30 DAYS 11/13/2018 12/12/2018 Inactiv e (Response to an electronic controlled substance refill request - RxReferenceNumber: [id number]) nystatin 100,000 unit/gram topical cream RxNorm: 251003 APPLY TO AFFECTED AREA(S) TWO TIMES A DAY 10/23/2018 11/06/2018 Inactive lisinopril 20 mg tablet RxNorm: 699738 1 Tablet(s) PO QD replac es 10mg dose 10/18/2018 11/14/2018 Inactive hydrocodone 10 mg-acetaminophen 325 mg tablet RxNorm: 318023 1-2 Tablet(s) QID as needed for pain MUST LAST 30 DAYS 10/08/2018 11/06/2018 Inactive (Response to an electronic controlled substance refill request - RxReferenceNumber: [id number]) lisinopril 10 mg tablet RxNorm: 914310 1 Tablet(s) PO QD 10/03/2018 0 01/21/2019 Inactive Celebrex 200 mg capsule RxNorm: 840036 TAKE ONE CAPSULE BY MOUT H TWICE A DAY 09/30/2018 05/04/2019 Inactive cyclobenzaprine 10 mg tablet RxNorm: 157559 TAKE ONE TA BLET BY MOUTH THREE TIMES A DAY NEEDED FOR MUSCLE SPASMS 09/30/2018 11/18/2018 Inactive doxepin 25 mg capsule RxNorm: 3527894 TAKE ONE CAPSULE B Y MOUTH EVERY NIGHT AT BEDTIME NEEDED 09/05/2018 10/16/2018 Inactive omeprazole 40 mg capsule,delayed release RxNorm: 248256 TAKE ONE CAPSULE BY MOUTH DAILY 09/05/2018 01/21/2019 Inactive furosemide 40 mg tablet RxNorm: 103558 TAKE ONE TABLET BY MOUTH EVERY MORNING NEEDED FOR EDEMA . TAKE WITH POTASSIUM 09/05/2018 11/03/2018 Inactive phentermine 37.5 mg tablet RxNorm: 260261 1 Tablet(s) PO QAM 201701/21/2019 Inactive doxepin 25 mg capsule RxNorm: 9503369 1 Capsule(s) PO QH S as needed for sleep TAKE ONE CAPSULE BY MOUTH EVERY NIGHT AT BEDTIME NEEDED 08/27/2018 09/04/2018 Inactive Keflex 500 mg capsule RxNorm: 146677 1 Capsule(s) PO TID 08/09/2018 1 10/19/2017 Inactive Diflucan 100 mg tablet RxNorm: 083442 1 Tablet(s) PO QD 08/09/2018 Inactive Premarin 1.25 mg tablet RxNorm: 077089 2 Tablet(s) PO QD 08/09/2018 0 05/04/2019 Inactive Zofran ODT 4 mg disintegrating tablet RxNorm: 267517 1 Tablet(s) PO Q4H as needed for nausea 08/09/2018 01/21/2019 Inactive metoprolol tartrate 100 mg tablet RxNorm: 231230 TAKE O NE TABLET BY MOUTH TWICE A DAY 2018 10/04/2018 Inactive doxepin 25 mg capsule RxNorm: 6874485 TAKE ONE CAPSULE B Y MOUTH EVERY NIGHT AT BEDTIME NEEDED 2018 08/26/2018 Inactive cyclobenzaprine 10 mg tablet RxNorm: 460369 TAKE ONE TA BLET BY MOUTH THREE TIMES A DAY NEEDED FOR MUSCLE SPASMS 2018 09/29/2018 Inactive hydrocodone 10 mg-acetaminophen 325 mg tablet RxNorm: 510448 1-2 Tablet(s) QID as needed for pain MUST LAST 30 DAYS 07/29/2018 08/27/2018 Inactive (Response to an electronic controlled substance refill request - RxReferenceNumber: [id number]) nystatin 100,000 unit/gram topical powder RxNorm: 143633 Applic ation TOP BID 07/22/2018 08/04/2018 Inactive doxepin 25 mg capsule RxNorm: 0137183 1 Capsule(s) PO QHS as needed 07/22/2018 08/05/2018 Inactive triamterene 75 mg-hydrochlorothiazide 50 mg tablet RxNorm: 3 54567 TAKE ONE TABLET BY MOUTH DAILY 07/05/2018 10/02/2018 Inactive duloxetine 60 mg capsule,delayed release RxNorm: 495774 TAKE ONE CAPSULE BY MOUTH DAILY 07/05/2018 09/02/2018 Inactive Klor-Con 8 mEq tablet,extended release RxNorm: 267531 T FARRUKH ONE TABLET BY MOUTH TWICE A DAY 07/05/2018 10/02/2018 Inactive Lipitor 10 mg tablet RxNorm: 638829 TAKE ONE TABLET BY MOUTH AT BEDTIME 07/05/2018 09/02/2018 Inactive allopurinol 300 mg tablet RxNorm: 192063 TAKE ONE TABLET BY LOPEZ TH DAILY 07/05/2018 10/02/2018 Inactive clonidine HCl 0.1 mg tablet RxNorm: 657977 TAKE ONE TAB LET BY MOUTH FOUR TIMES A DAY 07/05/2018 10/02/2018 Inactive hydrocodone 10 mg-acetaminophen 325 mg tablet RxNorm: 172516 1-2 Tablet(s) QID as needed for pain MUST LAST 30 DAYS 06/28/2018 07/27/2018 Inactive (Response to an electronic controlled substance refill request - RxReferenceNumber: [id number]) MediHoney (calcium alginate-honey) 4" X 5" bandage RxNorm: 1 Application TOP QD 06/17/2018 06/26/2018 Inactive honey-hydrocolloid dressing 4" X 5" RxNorm: 1 Application TOP QD 06/17/2018 07/16/2018 Inactive furosemide 40 mg tablet RxNorm: 491252 TAKE ONE TABLET BY MOUTH EVERY MORNING NEEDED FOR EDEMA . TAKE WITH POTASSIUM 06/10/2018 07/09/2018 Inactive This is a refill request. hydrocodone 10 mg-acetaminophen 325 mg tablet RxNorm: 271389 1-2 Tablet(s) QID as needed for pain MUST LAST 30 DAYS 05/30/2018 06/27/2018 Inactive (Response to an electronic controlled substance refill request - RxReferenceNumber: [id number]) acyclovir 800 mg tablet RxNorm: 859142 1 Tablet(s) PO 5x day 201705/22/2018 Inactive Premarin 1.25 mg tablet RxNorm: 217881 1-2 Tablet(s) PO QD 05/15/20 18 07/13/2018 Inactive cyclobenzaprine 10 mg tablet RxNorm: 812135 1 Tablet(s) PO TID as needed for muscle spasm 05/09/2018 05/08/2018 Inactive Medrol (Dustin) 4 mg tablets in a dose pack RxNorm: 430251 Tablet(s) PO As Directed 05/02/2018 06/16/2018 Inactive hydrocodone 10 mg-acetaminophen 325 mg tablet RxNorm: 296160 1-2 Tablet(s) QID as needed for pain MUST LAST 30 DAYS 04/30/2018 05/29/2018 Inactive (Response to an electronic controlled substance refill request - RxReferenceNumber: [id number]) duloxetine 60 mg capsule,delayed release RxNorm: 617739 TAKE ONE CAPSULE BY MOUTH DAILY 04/16/2018 05/15/2018 Inactive Celebrex 200 mg capsule RxNorm: 964746 TAKE ONE CAPSULE BY MOUT H TWICE A DAY 04/16/2018 06/14/2018 Inactive Singulair 10 mg tablet RxNorm: 577268 TAKE ONE TABLET BY MOUTH JOSÉ Y 04/16/2018 11/19/2018 Inactive Lipitor 10 mg tablet RxNorm: 853519 TAKE ONE TABLET BY MOUTH AT BEDTIME 04/16/2018 05/15/2018 Inactive hydrocodone 10 mg-acetaminophen 325 mg tablet RxNorm: 427698 1-2 Tablet(s) QID as needed for pain MUST LAST 30 DAYS 03/29/2018 04/27/2018 Inactive (Response to an electronic controlled substance refill request - RxReferenceNumber: [id number]) cyclobenzaprine 10 mg tablet RxNorm: 645984 1 Tablet(s) PO TID as needed for muscle spasm 03/18/2018 05/09/2018 Inactive omeprazole 40 mg capsule,delayed release RxNorm: 735639 1 Capsu le(s) PO QD 02/26/2018 08/24/2018 Inactive hydrocodone 10 mg-acetaminophen 325 mg tablet RxNorm: 897342 1-2 Tablet(s) QID as needed for pain MUST LAST 30 DAYS 02/26/2018 03/27/2018 Inactive (Response to an electronic controlled substance refill request - RxReferenceNumber: [id number]) metoprolol tartrate 100 mg tablet RxNorm: 271007 1 Tablet(s) PO BID 02/18/2018 08/05/2018 Inactive Lyrica 75 mg capsule RxNorm: 572579 1 Capsule(s) PO QHS 01/30/2018 Inactive phentermine 37.5 mg tablet RxNorm: 030348 1 Tablet(s) PO QAM 201706/16/2018 Inactive hydrocodone 10 mg-acetaminophen 325 mg tablet RxNorm: 875542 1-2 Tablet(s) QID as needed for pain MUST LAST 30 DAYS 01/29/2018 02/25/2018 Inactive (Response to an electronic controlled substance refill request - RxReferenceNumber: [id number]) Klor-Con 8 mEq tablet,extended release RxNorm: 250239 1 Tablet( s) PO BID 01/14/2018 07/04/2018 Inactive allopurinol 300 mg tablet RxNorm: 099019 1 Tablet(s) PO QD 01/15/2007/04/2018 Inactive Lipitor 10 mg tablet RxNorm: 026384 1 Tablet(s) PO QHS 01/14/201812/2017 Inactive triamterene 75 mg-hydrochlorothiazide 50 mg tablet RxNorm: 3 55234 1 Tablet(s) PO QD 01/14/2018 07/04/2018 Inactive hydrocodone 10 mg-acetaminophen 325 mg tablet RxNorm: 747661 1-2 Tablet(s) QID as needed for pain MUST LAST 30 DAYS 12/27/2017 01/25/2018 Inactive (Response to an electronic controlled substance refill request - RxReferenceNumber: [id number]) Onglyza 5 mg tablet RxNorm: 144464 1 Tablet(s) PO QD 12/18/201701/29 Inactive metformin 500 mg tablet RxNorm: 502541 1 Tablet(s) PO BID 12/11/2017 12/10/2017 Inactive metformin 500 mg tablet RxNorm: 244447 1 Tablet(s) PO BID 12/11/2017 12/17/2017 Inactive furosemide 40 mg tablet RxNorm: 323848 1 Tablet(s) PO Q AM prn edema--take with potassium 12/11/2017 06/08/2018 Inactive cyclobenzaprine 10 mg tablet RxNorm: 508142 1 Tablet(s) PO TID as needed for muscle spasm 12/11/2017 03/18/2018 Inactive hydrocodone 10 mg-acetaminophen 325 mg tablet RxNorm: 873454 1-2 Tablet(s) QID as needed for pain MUST LAST 30 DAYS 10/23/2017 11/21/2017 Inactive (Response to an electronic controlled substance refill request [id number]) Lipitor 10 mg tablet RxNorm: 821131 1 Tablet(s) PO QHS 10/16/201703/2018 Inactive cyclobenzaprine 10 mg tablet RxNorm: 378363 1 Tablet(s) PO TID as needed for muscle spasm 10/09/2017 12/10/2017 Inactive hydroxyzine HCl 25 mg tablet RxNorm: 651059 1 Tablet(s) PO BID as needed for anxiety 09/20/2017 01/29/2018 Inactive Effexor XR 75 mg capsule,extended release RxNorm: 965861 1 Caps ule(s) PO QD 09/20/2017 01/29/2018 Inactive metoprolol tartrate 100 mg tablet RxNorm: 899365 1 Tablet(s) PO BID 08/20/2017 02/18/2018 Inactive baclofen 20 mg tablet RxNorm: 324962 1 Tablet(s) PO TID as needed for muscle spasm 08/20/2017 01/21/2019 Inactive clonidine HCl 0.1 mg tablet RxNorm: 958302 1 Tablet(s) PO QID 08/2005/16/2018 Inactive Seroquel 25 mg tablet RxNorm: 805554 1 Tablet(s) PO QHS 08/17/2017 Inactive Seroquel 25 mg tablet RxNorm: 481296 1 Tablet(s) PO QHS 08/17/2017 Inactive Diflucan 100 mg tablet RxNorm: 565477 TAKE ONE TABLET BY MOUTH JOSÉ Y 07/25/2017 08/07/2017 Inactive hydrocodone 10 mg-acetaminophen 325 mg tablet RxNorm: 154409 1-2 Tablet(s) QID as needed for pain MUST LAST 30 DAYS 07/19/2017 08/17/2017 Inactive (Response to an electronic controlled substance refill request - RxReferenceNumber: [id number]) clindamycin 300 mg capsule RxNorm: 498365 1 Capsule(s) PO TID 07/1907/28/2017 Inactive clotrimazole-betamethasone 1 %-0.05 % topical cream RxNorm: 384430 Application TOP BID to elbow rash 07/19/2017 06/16/2018 Inactive Singulair 10 mg tablet RxNorm: 011835 Tablet(s) TAKE ONE TABLET BY MOUTH DAILY 07/18/2017 04/13/2018 Inactive triamterene 75 mg-hydrochlorothiazide 50 mg tablet RxNorm: 3 80724 1 Tablet(s) PO QD 07/18/2017 01/14/2018 Inactive Celebrex 200 mg capsule RxNorm: 003513 Capsule(s) TAKE ONE CAPSULE BY MOUTH TWICE A DAY 07/18/2017 10/15/2017 Inactive hydrocodone 10 mg-acetaminophen 325 mg tablet RxNorm: 355940 1-2 Tablet(s) QID as needed for pain MUST LAST 30 DAYS 06/19/2017 07/18/2017 Inactive (Response to an electronic controlled substance refill request - RxReferenceNumber: [id number]) hydrocodone 10 mg-acetaminophen 325 mg tablet RxNorm: 830500 1-2 Tablet(s) QID as needed for pain MUST LAST 30 DAYS 06/19/2017 06/18/2017 Inactive (Response to an electronic controlled substance refill request - RxReferenceNumber: [id number]) baclofen 20 mg tablet RxNorm: 101230 1 Tablet(s) PO TID as needed for muscle spasm 06/18/2017 08/20/2017 Inactive Medrol (Dustin) 4 mg tablets in a dose pack RxNorm: 652085 Tablet(s) PO As Directed 06/05/2017 07/18/2017 Inactive omeprazole 40 mg capsule,delayed release RxNorm: 843522 1 Capsu le(s) PO QD 04/20/2017 10/16/2017 Inactive Premarin 1.25 mg tablet RxNorm: 922376 1-2 Tablet(s) PO QD 04/11/20 17 05/15/2018 Inactive duloxetine 60 mg capsule,delayed release RxNorm: 800754 1 Capsu le(s) PO QD 04/11/2017 09/19/2017 Inactive furosemide 40 mg tablet RxNorm: 819525 1 Tablet(s) PO Q AM prn edema--take with potassium 04/11/2017 12/11/2017 Inactive Klor-Con 8 mEq tablet,extended release RxNorm: 826778 1 Tablet( s) PO BID 04/11/2017 01/14/2018 Inactive Lipitor 10 mg tablet RxNorm: 200579 1 Tablet(s) PO QHS 04/11/201702/2018 Inactive amlodipine 5 mg-benazepril 20 mg capsule RxNorm: 991285 1 Capsu le(s) PO QD 04/11/2017 01/29/2018 Inactive allopurinol 300 mg tablet RxNorm: 941854 1 Tablet(s) PO QD 04/11/20 17 01/14/2018 Inactive clonidine HCl 0.1 mg tablet RxNorm: 889553 1 Tablet(s) PO QID 04/0508/19/2017 Inactive baclofen 20 mg tablet RxNorm: 360521 1 Tablet(s) PO TID as needed for muscle spasm 04/02/2017 06/18/2017 Inactive Premarin 1.25 mg tablet RxNorm: 104906 1-2 Tablet(s) PO QD 03/20/20 17 04/10/2017 Inactive hydrocodone 10 mg-acetaminophen 325 mg tablet RxNorm: 362091 1-2 Tablet(s) QID as needed for pain MUST LAST 30 DAYS 03/14/2017 01/21/2019 Inactive (Response to an electronic controlled substance refill request - RxReferenceNumber: [id number]) metoprolol tartrate 100 mg tablet RxNorm: 159769 1 Tablet(s) PO BID 02/12/2017 08/20/2017 Inactive hydrocodone 10 mg-acetaminophen 325 mg tablet RxNorm: 789167 1-2 Tablet(s) QID as needed for pain MUST LAST 30 DAYS 02/08/2017 03/09/2017 Inactive (Response to an electronic controlled substance refill request - RxReferenceNumber: [id number]) metoprolol tartrate 100 mg tablet RxNorm: 097416 TAKE O NE TABLET BY MOUTH TWICE A DAY 01/11/2017 02/12/2017 Inactive metoprolol tartrate 100 mg tablet RxNorm: 842862 1 Tablet(s) PO BID 12/18/2016 12/17/2016 Inactive metoprolol tartrate 100 mg tablet RxNorm: 829528 1 Tablet(s) PO BID 12/18/2016 01/10/2017 Inactive furosemide 40 mg tablet RxNorm: 708557 1 Tablet(s) PO Q AM prn edema--take with potassium 12/13/2016 02/10/2017 Inactive amitriptyline 100 mg tablet RxNorm: 296697 1 Tablet(s) PO QHS 11/2812/12/2016 Inactive baclofen 20 mg tablet RxNorm: 426447 1 Tablet(s) PO TID as needed for muscle spasm 11/14/2016 04/01/2017 Inactive triamterene 75 mg-hydrochlorothiazide 50 mg tablet RxNorm: 3 79961 1 Tablet(s) PO QD 11/14/2016 11/13/2016 Inactive metolazone 2.5 mg tablet RxNorm: 587365 TAKE ONE TABLET BY MOUTH DAILY NEEDED FOR EDEMA 11/14/2016 12/12/2016 Inactive triamterene 75 mg-hydrochlorothiazide 50 mg tablet RxNorm: 3 21654 1 Tablet(s) PO QD 11/14/2016 07/18/2017 Inactive amitriptyline 50 mg tablet RxNorm: 623917 TAKE ONE TABL ET BY MOUTH AT BEDTIME NEEDED FOR SLEEP 11/14/2016 11/27/2016 Inactive Cymbalta 60 mg capsule,delayed release RxNorm: 120351 1 Capsule (s) PO QHS 11/14/2016 12/12/2016 Inactive clonidine HCl 0.1 mg tablet RxNorm: 228626 1 Tablet(s) PO QID 11/1304/04/2017 Inactive amitriptyline 50 mg tablet RxNorm: 952358 1 Tablet(s) P O QHS as needed for sleep 11/01/2016 11/27/2016 Inactive duloxetine 60 mg capsule,delayed release RxNorm: 731702 TAKE ONE CAPSULE BY MOUTH DAILY 10/20/2016 01/17/2017 Inactive allopurinol 300 mg tablet RxNorm: 523966 TAKE ONE TABLET BY LOPEZ TH DAILY 10/20/2016 01/16/2017 Inactive Lyrica 75 mg capsule RxNorm: 005421 TAKE ONE CAPSULE BY MOUTH EVERY NIGHT AT BEDTIME 10/20/2016 12/10/2016 Inactive Klor-Con 8 mEq tablet,extended release RxNorm: 426359 T FARRUKH ONE TABLET BY MOUTH TWICE A DAY 10/20/2016 01/17/2017 Inactive Celebrex 200 mg capsule RxNorm: 426288 TAKE ONE CAPSULE BY MOUT H TWICE A DAY 10/20/2016 07/18/2017 Inactive Bystolic 10 mg tablet RxNorm: 753921 TAKE ONE TABLET BY MOUTH EVERY NIGHT AT BEDTIME 10/20/2016 12/17/2016 Inactive amlodipine 5 mg-benazepril 20 mg capsule RxNorm: 891876 TAKE ONE CAPSULE BY MOUTH EVERY NIGHT AT BEDTIME -- TO REPLACE AMLODOPINE 10/20/20162016 Inactive Lipitor 10 mg tablet RxNorm: 230365 TAKE ONE TABLET BY MOUTH EVERY NIGHT AT BEDTIME 10/20/2016 01/17/2017 Inactive alprazolam 0.5 mg tablet RxNorm: 822678 3 Tablet(s) PO QHS as needed for sleep/anxiety 09/20/2016 10/31/2016 Inactive Tamiflu 75 mg capsule RxNorm: 705795 1 Capsule(s) PO QD 09/19/2016 Inactive Lyrica 75 mg capsule RxNorm: 203134 1 Capsule(s) PO QHS 09/19/2016 Inactive prednisone 20 mg tablet RxNorm: 097856 1 Tablet(s) PO QD 08/10/2016 1 10/17/2015 Inactive doxycycline hyclate 100 mg capsule RxNorm: 4214939 1 Capsule(s) PO BID 08/10/2016 08/19/2016 Inactive Medrol (Dustin) 4 mg tablets in a dose pack RxNorm: 375968 Tablet(s) PO As Directed 07/31/2016 08/22/2016 Inactive Singulair 10 mg tablet RxNorm: 175944 TAKE ONE TABLET BY MOUTH JOSÉ Y 07/27/2016 07/18/2017 Inactive hydrocodone 10 mg-acetaminophen 325 mg tablet RxNorm: 395025 1-2 Tablet(s) QID as needed for pain MUST LAST 30 DAYS 07/26/2016 08/24/2016 Inactive (Response to an electronic controlled substance refill request - RxReferenceNumber: [id number]) alprazolam 0.5 mg tablet RxNorm: 834198 3 Tablet(s) PO QHS as needed for anxiety or sleep 07/26/2016 09/20/2016 Inactive clindamycin 300 mg capsule RxNorm: 168038 1 Capsule(s) PO TID 07/2007/29/2016 Inactive Diflucan 100 mg tablet RxNorm: 563185 1 Tablet(s) PO QD 07/20/2016 Inactive Levaquin 500 mg tablet RxNorm: 638949 1 Tablet(s) PO QD 07/17/2016 Inactive Levaquin 500 mg tablet RxNorm: 400517 1 Tablet(s) PO QD 07/10/2016 Inactive Levaquin 500 mg tablet RxNorm: 285971 1 Tablet(s) PO QD 07/10/2016 Inactive mupirocin 2 % topical ointment RxNorm: 450622 TOP Apply topically to affected areas twice daily 07/06/2016 09/18/2016 Inactive Singulair 10 mg tablet RxNorm: 550573 TAKE ONE TABLET BY MOUTH JOSÉ Y 06/21/2016 01/21/2019 Inactive alprazolam 0.5 mg tablet RxNorm: 160439 TAKE THREE TABL ETS BY MOUTH AT BEDTIME NEEDED FOR SLEEP OR STRESS 05/22/2016 06/20/2016 Inactive triamterene 75 mg-hydrochlorothiazide 50 mg tablet RxNorm: 3 20663 1 Tablet(s) PO QD 04/26/2016 10/21/2016 Inactive Premarin 1.25 mg tablet RxNorm: 374875 1-2 Tablet(s) PO QD 04/26/20 16 03/20/2017 Inactive Klor-Con 8 mEq tablet,extended release RxNorm: 698740 1 Tablet( s) PO BID 04/26/2016 10/19/2016 Inactive Celebrex 200 mg capsule RxNorm: 517740 1 Capsule(s) PO BID TAKE ONE CAPSULE BY MOUTH EVERY DAY 04/26/2016 10/19/2016 Inactive Lipitor 10 mg tablet RxNorm: 457780 1 Tablet(s) PO QHS 04/26/201605/2017 Inactive allopurinol 300 mg tablet RxNorm: 141405 1 Tablet(s) PO QD TAKE ONE TABLET BY MOUTH EVERY DAY 04/26/2016 10/19/2016 Inactive amlodipine 5 mg-benazepril 20 mg capsule RxNorm: 597269 1 Capsule(s) PO QHS replaces amlodopine 04/26/2016 10/19/2016 Inactive duloxetine 60 mg capsule,delayed release RxNorm: 207325 1 Capsu le(s) PO QD 04/26/2016 10/19/2016 Inactive Bystolic 10 mg tablet RxNorm: 742239 1 Tablet(s) PO QHS 04/26/2016 Inactive Singulair 10 mg tablet RxNorm: 262075 1 Tablet(s) PO QD TAKE ONE TABLET BY MOUTH DAILY 04/26/2016 06/20/2016 Inactive clonidine HCl 0.1 mg tablet RxNorm: 620752 1 Tablet(s) PO QID 04/2610/22/2016 Inactive hydrocodone 10 mg-acetaminophen 325 mg tablet RxNorm: 093797 1-2 Tablet(s) QID as needed for pain TAKE ONE TO TWO TABLETS BY MOUTH FOUR TIMES A DAY . MUST LAST 30 DAYS 03/31/2016 04/29/2016 Inactive (Response to an electronic controlled substance refill request - RxReferenceNumber: [id number]) Klor-Con 8 mEq tablet,extended release RxNorm: 631457 T FARRUKH ONE TABLET BY MOUTH TWICE A DAY 03/24/2016 09/29/2019 Inactive prednisone 20 mg tablet RxNorm: 811317 1 Tablet(s) PO QD 03/09/2016 0 03/08/2016 Inactive prednisone 20 mg tablet RxNorm: 383682 1 Tablet(s) PO QD 03/09/2016 0 03/13/2016 Inactive alprazolam 0.5 mg tablet RxNorm: 357484 3 Tablet(s) PO QHS as needed for sleep/stress 03/02/2016 01/21/2019 Inactive mupirocin 2 % topical ointment RxNorm: 741989 TOP twice daily to affected areas of face and neck 02/21/2016 04/25/2016 Inactive clonidine HCl 0.1 mg tablet RxNorm: 858175 TAKE ONE TAB LET BY MOUTH FOUR TIMES A DAY 02/15/2016 09/29/2019 Inactive clonidine HCl 0.1 mg tablet RxNorm: 173115 1 Tablet(s) PO QID 02/1404/25/2016 Inactive Premarin 1.25 mg tablet RxNorm: 202323 1-2 Tablet(s) PO QD 02/15/20 16 03/15/2016 Inactive Klor-Con 8 mEq tablet,extended release RxNorm: 262901 T FARRUKH ONE TABLET BY MOUTH TWICE A DAY 02/15/2016 03/15/2016 Inactive potassium chloride ER 20 mEq tablet,extended release(part/cr yst) RxNorm: 893607 2 Tablet(s) PO BID 02/15/2016 03/15/2016 Inactive Macrobid 100 mg capsule RxNorm: 642387 1 Capsule(s) PO BID 01/24/20 16 01/30/2016 Inactive prednisone 20 mg tablet RxNorm: 730509 Take 3tabs PO QD x 2 days, then 2 tabs PO QD x 2 days, then 1 tab PO QD x 2 days, then 1/2 tab PO QDy x 2 days 12/23/2015 04/25/2016 Inactive Klor-Con 8 mEq tablet,extended release RxNorm: 456481 T FARRUKH ONE TABLET BY MOUTH TWICE A DAY 12/20/2015 02/14/2016 Inactive alprazolam 1 mg tablet RxNorm: 305210 1 1/2 Tablet(s) PO QHS 201501/23/2016 Inactive nystatin 100,000 unit/gram topical cream RxNorm: 055864 APPLY TO AFFECTED AREA(S) TWO TIMES A DAY 11/30/2015 12/14/2015 Inactive Singulair 10 mg tablet RxNorm: 444330 TAKE ONE TABLET BY MOUTH JOSÉ Y 11/18/2015 04/25/2016 Inactive allopurinol 300 mg tablet RxNorm: 199008 1 Tablet(s) PO QD TAKE ONE TABLET BY MOUTH EVERY DAY 10/26/2015 04/22/2016 Inactive Singulair 10 mg tablet RxNorm: 248414 TAKE ONE TABLET BY MOUTH JOSÉ Y 10/26/2015 11/17/2015 Inactive duloxetine 60 mg capsule,delayed release RxNorm: 130989 1 Capsu le(s) PO QD 10/26/2015 04/22/2016 Inactive triamterene 75 mg-hydrochlorothiazide 50 mg tablet RxNorm: 3 81466 1 Tablet(s) PO QD 10/26/2015 11/14/2016 Inactive potassium chloride ER 20 mEq tablet,extended release(part/cr yst) RxNorm: 058175 2 Tablet(s) PO BID 10/26/2015 02/14/2016 Inactive Lipitor 10 mg tablet RxNorm: 747822 1 Tablet(s) PO QHS 10/26/2015 Inactive amlodipine 5 mg-benazepril 20 mg capsule RxNorm: 106832 1 Capsule(s) PO QHS replaces amlodopine 10/26/2015 04/22/2016 Inactive Bystolic 10 mg tablet RxNorm: 898952 1 Tablet(s) PO QHS 10/26/2015 Inactive amlodipine 5 mg-benazepril 20 mg capsule RxNorm: 691720 1 Capsule(s) PO QHS replaces amlodopine 10/06/2015 10/25/2015 Inactive amlodipine 5 mg tablet RxNorm: 075882 1 Tablet(s) PO QHS 09/30/2015 0 04/25/2016 Inactive metolazone 2.5 mg tablet RxNorm: 316792 TAKE ONE TABLET BY MOUTH DAILY NEEDED FOR EDEMA 09/30/2015 01/21/2019 Inactive duloxetine 60 mg capsule,delayed release RxNorm: 119793 1 Capsu le(s) PO QD 09/30/2015 10/25/2015 Inactive cephalexin 500 mg capsule RxNorm: 056963 1 Capsule(s) PO BID 201509/23/2015 Inactive mupirocin 2 % topical ointment RxNorm: 809015 TOP twice daily to affected areas of face and neck 09/14/2015 02/20/2016 Inactive baclofen 20 mg tablet RxNorm: 734842 1 Tablet(s) PO TID as needed for muscle spasm 09/01/2015 11/14/2016 Inactive clonidine HCl 0.1 mg tablet RxNorm: 657102 1 Tablet(s) PO QID 09/0102/14/2016 Inactive alprazolam 1 mg tablet RxNorm: 434158 1 1/2 Tablet(s) PO QHS 201409/09/2015 Inactive baclofen 20 mg tablet RxNorm: 001926 1 Tablet(s) PO TID as needed for muscle spasm 07/23/2015 09/01/2015 Inactive omeprazole 40 mg capsule,delayed release RxNorm: 140115 1 Capsu le(s) PO QD 07/23/2015 04/25/2016 Inactive alprazolam 1 mg tablet RxNorm: 362290 1 1/2 Tablet(s) PO QHS 201408/10/2015 Inactive Bystolic 10 mg tablet RxNorm: 998645 1 Tablet(s) PO BID 06/24/2015 Inactive allopurinol 300 mg tablet RxNorm: 926895 1 Tablet(s) PO QD TAKE ONE TABLET BY MOUTH EVERY DAY 06/23/2015 10/20/2015 Inactive alprazolam 1 mg tablet RxNorm: 130864 1 1/2 Tablet(s) PO QHS 201407/06/2015 Inactive clonidine HCl 0.1 mg tablet RxNorm: 846943 1 Tablet(s) PO QID 06/0209/01/2015 Inactive clonidine HCl 0.1 mg tablet RxNorm: 653609 1 Tablet(s) PO QID 06/0206/01/2015 Inactive Cymbalta 60 mg capsule,delayed release RxNorm: 391075 1 Capsule (s) PO QHS 06/02/2015 08/30/2015 Inactive Cymbalta 60 mg capsule,delayed release RxNorm: 179664 1 Capsule (s) PO QHS 06/02/2015 06/01/2015 Inactive clonidine HCl 0.1 mg tablet RxNorm: 266406 1 Tablet(s) PO TID 05/3106/01/2015 Inactive replaces 0.2mg dose metolazone 2.5 mg tablet RxNorm: 997510 TAKE ONE TABLET BY MOUTH DAILY NEEDED FOR EDEMA 05/21/2015 06/19/2015 Inactive Singulair 10 mg tablet RxNorm: 952879 TAKE ONE TABLET BY MOUTH JOSÉ Y 05/21/2015 10/17/2015 Inactive Cymbalta 30 mg capsule,delayed release RxNorm: 040178 1 Capsule (s) PO QHS 05/20/2015 11/14/2016 Inactive betamethasone valerate 0.1 % topical cream RxNorm: 729521 Appli cation TOP BID 05/10/2015 04/25/2016 Inactive Bactroban 2 % topical ointment RxNorm: 234418 Application TOP BID 0 05/10/2015 06/20/2015 Inactive baclofen 20 mg tablet RxNorm: 050542 1 Tablet(s) PO TID as needed 0 04/26/2015 07/23/2015 Inactive Lipitor 10 mg tablet RxNorm: 580580 1 Tablet(s) PO QHS 04/26/201508/2016 Inactive clonidine HCl 0.1 mg tablet RxNorm: 134239 1 Tablet(s) PO TID 04/2605/30/2015 Inactive replaces 0.2mg dose Klor-Con 8 mEq tablet,extended release RxNorm: 421522 1 Tablet( s) PO BID 04/26/2015 04/25/2016 Inactive metolazone 2.5 mg tablet RxNorm: 712263 1 Tablet(s) PO QD as ne eded for edema 04/26/2015 04/25/2015 Inactive triamterene 75 mg-hydrochlorothiazide 50 mg tablet RxNorm: 3 56013 1 Tablet(s) PO QD 04/26/2015 10/22/2015 Inactive Premarin 1.25 mg tablet RxNorm: 481315 1-2 Tablet(s) PO QD 04/26/20 15 10/22/2015 Inactive Bystolic 10 mg tablet RxNorm: 808399 1 Tablet(s) PO QAM TAKE ONE TABLET BY MOUTH EVERY MORNING 04/23/2015 06/23/2015 Inactive clonidine HCl 0.1 mg tablet RxNorm: 618901 1 Tablet(s) PO TID 03/2304/25/2015 Inactive replaces 0.2mg dose nystatin 100,000 unit/gram topical cream RxNorm: 602294 Applica tion TOP BID 03/23/2015 06/20/2015 Inactive baclofen 20 mg tablet RxNorm: 458660 1 Tablet(s) PO TID as needed 0 03/23/2015 04/25/2015 Inactive Premarin 1.25 mg tablet RxNorm: 790743 1-2 Tablet(s) PO QD 03/23/20 15 04/25/2015 Inactive Klor-Con 8 mEq tablet,extended release RxNorm: 413922 1 Tablet( s) PO BID 03/23/2015 04/25/2015 Inactive cefdinir 300 mg capsule RxNorm: 106682 2 Capsule(s) PO QD 03/16/2015 03/25/2015 Inactive baclofen 20 mg tablet RxNorm: 227384 1 Tablet(s) PO TID as needed 0 03/02/2015 03/22/2015 Inactive allopurinol 300 mg tablet RxNorm: 989479 1 Tablet(s) PO QD TAKE ONE TABLET BY MOUTH EVERY DAY 02/22/2015 05/22/2015 Inactive Klor-Con M20 mEq tablet,extended release RxNorm: 980673 2 Tablet(s) PO BID to use with lasix 02/22/2015 06/20/2015 Inactive clonidine HCl 0.1 mg tablet RxNorm: 737511 1 Tablet(s) PO TID 02/1903/22/2015 Inactive replaces 0.2mg dose Lipitor 10 mg tablet RxNorm: 404066 1 Tablet(s) PO QHS 01/20/201506/2015 Inactive Lipitor 10 mg tablet RxNorm: 788791 1 Tablet(s) PO QHS 01/20/2015 Inactive Singulair 10 mg tablet RxNorm: 146548 1 Tablet(s) PO QD TAKE ONE TABLET BY MOUTH EVERY DAY 11/20/2014 05/18/2015 Inactive Lipitor 10 mg tablet RxNorm: 863468 1 Tablet(s) PO QHS 11/20/201408/2015 Inactive allopurinol 300 mg tablet RxNorm: 744088 1 Tablet(s) PO QD TAKE ONE TABLET BY MOUTH EVERY DAY 11/20/2014 02/16/2015 Inactive Bystolic 10 mg tablet RxNorm: 703088 1 Tablet(s) PO QAM TAKE ONE TABLET BY MOUTH EVERY MORNING 11/20/2014 04/22/2015 Inactive Klor-Con 8 mEq tablet,extended release RxNorm: 601883 1 Tablet( s) PO BID 11/20/2014 02/17/2015 Inactive baclofen 20 mg tablet RxNorm: 224177 1 Tablet(s) PO TID as needed 0 11/20/2014 01/21/2019 Inactive baclofen 20 mg tablet RxNorm: 502512 1 Tablet(s) PO TID as needed 0 10/27/2014 11/19/2014 Inactive baclofen 20 mg tablet RxNorm: 363198 1 Tablet(s) PO TID as needed 0 10/26/2014 03/01/2015 Inactive allopurinol 300 mg tablet RxNorm: 246605 1 Tablet(s) PO QD TAKE ONE TABLET BY MOUTH EVERY DAY 10/26/2014 11/20/2014 Inactive Bystolic 10 mg tablet RxNorm: 344782 1 Tablet(s) PO QAM TAKE ONE TABLET BY MOUTH EVERY MORNING 10/26/2014 11/20/2014 Inactive clonidine HCl 0.1 mg tablet RxNorm: 597496 1 Tablet(s) PO TID 09/2805/27/2019 Inactive replaces 0.2mg dose clonidine HCl 0.1 mg tablet RxNorm: 448354 1 Tablet(s) PO TID 09/2802/18/2015 Inactive replaces 0.2mg dose baclofen 20 mg tablet RxNorm: 569937 1 Tablet(s) PO TID as needed 1 11/01/2013 08/30/2014 Inactive Lipitor 10 mg tablet RxNorm: 159113 1 Tablet(s) PO QHS 08/31/2014 Inactive baclofen 20 mg tablet RxNorm: 004120 1 Tablet(s) PO TID as needed 1 11/01/2013 10/26/2014 Inactive triamterene 75 mg-hydrochlorothiazide 50 mg tablet RxNorm: 3 70080 1 Tablet(s) PO QD 08/31/2014 02/26/2015 Inactive Klor-Con 8 mEq tablet,extended release RxNorm: 791105 1 Tablet( s) PO BID 08/31/2014 11/20/2014 Inactive baclofen 20 mg tablet RxNorm: 935436 1 Tablet(s) PO TID as needed 1 09/30/2013 10/25/2014 Inactive baclofen 20 mg tablet RxNorm: 339600 1 Tablet(s) PO TID as needed 1 09/30/2013 08/31/2014 Inactive omeprazole 40 mg capsule,delayed release RxNorm: 238307 1 Capsu le(s) PO QD 07/21/2014 07/23/2015 Inactive Flonase 50 mcg/actuation nasal spray,suspension RxNorm: 8963 23 1 [place] NASAL BID 07/15/2014 04/09/2017 Inactive hydrocodone 10 mg-acetaminophen 325 mg tablet RxNorm: 683166 1-2 Tablet(s) QID as needed for pain TAKE ONE TO TWO TABLETS BY MOUTH FOUR TIMES A DAY . MUST LAST 30 DAYS 06/30/2014 07/27/2014 Inactive (Response to an electronic controlled substance refill request - RxReferenceNumber: [id number]) baclofen 20 mg tablet RxNorm: 073538 1 Tablet(s) PO TID as needed 1 07/31/2014 Inactive Singulair 10 mg tablet RxNorm: 921460 1 Tablet(s) PO QD TAKE ONE TABLET BY MOUTH EVERY DAY 05/25/2014 11/20/2014 Inactive Bystolic 10 mg tablet RxNorm: 287167 TAKE ONE TABLET BY MOUTH E VERY MORNING 05/25/2014 09/21/2014 Inactive allopurinol 300 mg tablet RxNorm: 643365 1 Tablet(s) PO QD TAKE ONE TABLET BY MOUTH EVERY DAY 05/25/2014 10/21/2014 Inactive baclofen 20 mg tablet RxNorm: 342625 1 Tablet(s) PO TID as needed 0 05/25/2014 06/29/2014 Inactive allopurinol 300 mg tablet RxNorm: 645427 TAKE ONE TABLET BY LOPEZ TH EVERY DAY 05/25/2014 09/21/2014 Inactive Singulair 10 mg tablet RxNorm: 302194 1 Tablet(s) PO QD TAKE ONE TABLET BY MOUTH EVERY DAY 05/25/2014 05/24/2014 Inactive Bystolic 10 mg tablet RxNorm: 436713 1 Tablet(s) PO QAM TAKE ONE TABLET BY MOUTH EVERY MORNING 05/25/2014 10/21/2014 Inactive metolazone 2.5 mg tablet RxNorm: 784921 1 Tablet(s) PO QD as ne eded for edema 05/18/2014 04/25/2015 Inactive Lasix 40 mg tablet RxNorm: 249540 1 Tablet(s) PO QAM s hould take potassium supplementation with this medication 05/14/2014 05/17/2014 Inactive hydrocodone 10 mg-acetaminophen 325 mg tablet RxNorm: 673346 1-2 Tablet(s) QID as needed for pain TAKE ONE TO TWO TABLETS BY MOUTH FOUR TIMES A DAY . MUST LAST 30 DAYS 05/07/2014 06/05/2014 Inactive (Response to an electronic controlled substance refill request - RxReferenceNumber: [id number]) alprazolam 0.5 mg tablet RxNorm: 304100 TAKE ONE TABLET BY MOUTH TWICE A DAY , MUST LAST 30 DAYS 05/07/2014 05/22/2016 Inactive (Response to a n electronic controlled substance refill request - RxReferenceNumber: [id number]) diclofenac sodium 75 mg tablet,delayed release RxNorm: 10997 6 1 Tablet(s) PO BID for pain 04/24/2014 07/20/2014 Inactive Celebrex 200 mg capsule RxNorm: 684464 TAKE ONE CAPSULE BY MOUT H EVERY DAY 04/24/2014 07/20/2014 Inactive alprazolam 0.5 mg tablet RxNorm: 683637 TAKE ONE TABLET BY MOUTH TWICE A DAY , MUST LAST 30 DAYS 03/24/2014 04/22/2014 Inactive (Response to a n electronic controlled substance refill request - RxReferenceNumber: [id number]) diclofenac sodium 75 mg tablet,delayed release RxNorm: 95706 6 1 Tablet(s) PO BID for pain 03/24/2014 04/24/2014 Inactive clonidine HCl 0.1 mg tablet RxNorm: 270831 1 Tablet(s) PO TID 03/2409/28/2014 Inactive replaces 0.2mg dose Klor-Con 8 mEq tablet,extended release RxNorm: 539994 1 Tablet( s) PO BID 02/26/2014 08/31/2014 Inactive diclofenac sodium 75 mg tablet,delayed release RxNorm: 22422 6 1 Tablet(s) PO BID for pain 02/25/2014 03/24/2014 Inactive hydrocodone 10 mg-acetaminophen 325 mg tablet RxNorm: 024438 1-2 Tablet(s) QID as needed for pain TAKE ONE TO TWO TABLETS BY MOUTH FOUR TIMES A DAY . MUST LAST 30 DAYS 02/25/2014 03/26/2014 Inactive (Response to an electronic controlled substance refill request - RxReferenceNumber: [id number]) alprazolam 0.5 mg tablet RxNorm: 113293 Tablet(s) PO BI D as needed for anxiety TAKE ONE TABLET BY MOUTH TWICE A DAY , MUST LAST 30 DAYS 02/25/2014 Inactive (Response to an electronic controlled [place] bstance refill request - RxReferenceNumber: [id number]) [AttnRPh: Saving apply/adjudicate RxGRP:SG20 RxBIN:[id number] RxPCN: ID#:[id number]] alprazolam 0.5 mg tablet RxNorm: 522213 Tablet(s) TAKE ONE TABLET BY MOUTH TWICE A DAY , MUST LAST 30 DAYS 01/27/2014 02/24/2014 Inactive (Respo nse to an electronic controlled substance refill request - RxReferenceNumber: [id number]) [AttnRPh: Saving apply/adjudicate RxGRP:SG20 RxBIN:[id number] RxPCN: ID#:[id number]] hydrocodone 10 mg-acetaminophen 325 mg tablet RxNorm: 423212 1-2 Tablet(s) QID as needed for pain TAKE ONE TO TWO TABLETS BY MOUTH FOUR TIMES A DAY . MUST LAST 30 DAYS 01/27/2014 02/24/2014 Inactive (Response to an electronic controlled substance refill request - RxReferenceNumber: [id number]) alprazolam 0.5 mg tablet RxNorm: 271635 TAKE ONE TABLET BY MOUTH TWICE A DAY , MUST LAST 30 DAYS 01/27/2014 01/26/2014 Inactive (Response to a n electronic controlled substance refill request - RxReferenceNumber: [id number]) Premarin 1.25 mg tablet RxNorm: 714592 1-2 Tablet(s) PO QD 01/28/20 14 07/25/2014 Inactive alprazolam 0.5 mg tablet RxNorm: 993011 TAKE ONE TABLET BY MOUTH TWICE A DAY , MUST LAST 30 DAYS 01/27/2014 01/27/2014 Inactive (Response to a n electronic controlled substance refill request - RxReferenceNumber: [id number]) hydrocodone 10 mg-acetaminophen 325 mg tablet RxNorm: 440901 TAKE ONE TO TWO TABLETS BY MOUTH FOUR TIMES A DAY . MUST LAST 30 DAYS 01/27/20142013 Inactive (Response to an electronic controlled [place] bstance refill request - RxReferenceNumber: [id number]) Celebrex 200 mg capsule RxNorm: 057000 1 Capsule(s) PO QD TAKE ONE CAPSULE BY MOUTH EVERY DAY 12/29/2013 04/27/2014 Inactive hydrocodone 10 mg-acetaminophen 325 mg tablet RxNorm: 700656 1-2 Tablet(s) PO QID as needed for severe pain 12/29/2013 01/27/2014 Inactive allopurinol 300 mg tablet RxNorm: 335290 1 Tablet(s) PO QD TAKE ONE TABLET BY MOUTH EVERY DAY 12/29/2013 05/24/2014 Inactive alprazolam 0.5 mg tablet RxNorm: 286642 TAKE ONE TABLET BY MOUTH TWICE A DAY , MUST LAST 30 DAYS 12/29/2013 01/27/2014 Inactive (Response to a n electronic controlled substance refill request - RxReferenceNumber: [id number]) Celebrex 200 mg capsule RxNorm: 173799 1 Capsule(s) PO QD TAKE ONE CAPSULE BY MOUTH EVERY DAY 12/29/2013 12/29/2013 Inactive Bystolic 10 mg tablet RxNorm: 977723 1 Tablet(s) PO QAM TAKE ONE TABLET BY MOUTH EVERY MORNING 12/29/2013 05/24/2014 Inactive Bystolic 10 mg tablet RxNorm: 055108 1 Tablet(s) PO QAM TAKE ONE TABLET BY MOUTH EVERY MORNING 12/29/2013 12/29/2013 Inactive Singulair 10 mg tablet RxNorm: 005639 1 Tablet(s) PO QD TAKE ONE TABLET BY MOUTH EVERY DAY 12/29/2013 05/25/2014 Inactive hydrocodone 10 mg-acetaminophen 325 mg tablet RxNorm: 091608 TAKE ONE TO TWO TABLETS BY MOUTH FOUR TIMES A DAY . MUST LAST 30 DAYS 12/29/20132013 Inactive (Response to an electronic controlled [place] bstance refill request - RxReferenceNumber: [id number]) Trazadone 75mg Tablet RxNorm: 1 Tablet(s) PO QHS as needed 03/23/2014 Inactive Trazadone 75mg Tablet RxNorm: 1 Tablet(s) PO QHS 12/24/20132014 Inactive Soma 350 mg tablet RxNorm: 334694 Tablet(s) PO TAKE ON E TABLET BY MOUTH THREE TIMES A DAY NEEDED FOR MUSCLE SPASMS. THIS MUST LAST 30 DAYS BETWEEN REFILLS. 12/10/2013 12/22/2013 Inactive (Appended: Cont rolled substance eRx refill - RxReferenceNumber: [id number]) diclofenac sodium 75 mg tablet,delayed release RxNorm: 84490 6 1 Tablet(s) PO BID for pain 12/10/2013 02/24/2014 Inactive allopurinol 300 mg tablet RxNorm: 624975 1 Tablet(s) PO QD 11/20/19 14 12/29/2013 Inactive alprazolam 0.5 mg tablet RxNorm: 586083 2 Tablet(s) PO BID 11/13/19 14 12/29/2013 Inactive prn clonidine 0.1 mg tablet RxNorm: 366099 1 Tablet(s) PO TID 11/12/2013 02/09/2014 Inactive replaces 0.2mg dose Klor-Con M20 mEq tablet,extended release RxNorm: 501712 2 Tablet(s) PO BID to use with lasix 11/12/2013 05/10/2014 Inactive Singulair 10 mg tablet RxNorm: 551183 1 Tablet(s) PO QD 11/12/2013 Inactive hydrocodone 10 mg-acetaminophen 325 mg tablet RxNorm: 293894 1-2 Tablet(s) PO QID as needed for severe pain 11/12/2013 12/28/2013 Inactive Bystolic 10 mg tablet RxNorm: 971160 1 Tablet(s) PO QAM 11/12/2013 Inactive Soma 350 mg tablet RxNorm: 714506 Tablet(s) PO TAKE ON E TABLET BY MOUTH THREE TIMES A DAY NEEDED FOR MUSCLE SPASMS. THIS MUST LAST 30 DAYS BETWEEN REFILLS. 10/13/2013 12/10/2013 Inactive (Appended: Cont rolled substance eRx refill - RxReferenceNumber: [id number]) hydrocodone 10 mg-acetaminophen 325 mg tablet RxNorm: 236598 1-2 Tablet(s) PO QID as needed for severe pain 10/03/2013 11/11/2013 Inactive diclofenac sodium 75 mg tablet,delayed release RxNorm: 80161 8 1 Tablet(s) PO BID for pain 09/11/2013 12/10/2013 Inactive alprazolam 0.5 mg tablet RxNorm: 111665 1 Tablet(s) PO BID May refill on 04/26/13 09/01/2013 10/30/2013 Inactive prn hydrocodone 10 mg-acetaminophen 325 mg tablet RxNorm: 840684 1-2 Tablet(s) PO QID as needed for severe pain 09/01/2013 10/02/2013 Inactive triamterene 75 mg-hydrochlorothiazide 50 mg tablet RxNorm: 3 92504 1 Tablet(s) PO QD 08/04/2013 08/31/2014 Inactive cyclobenzaprine 10 mg tablet RxNorm: 279430 1 Tablet(s) PO TID prn spasm 08/04/2013 08/13/2013 Inactive clonidine 0.1 mg tablet RxNorm: 573559 1 Tablet(s) PO TID 08/04/2013 11/11/2013 Inactive replaces 0.2mg dose cyclobenzaprine 10 mg tablet RxNorm: 691758 1 Tablet(s) PO TID prn spasm 07/23/2013 08/01/2013 Inactive hydrocodone 10 mg-acetaminophen 325 mg tablet RxNorm: 345247 2 1-2 Tablet(s) PO QID as needed for severe pain 06/09/2013 08/07/2013 Inactive Singulair 10 mg tablet RxNorm: 494855 1 Tablet(s) PO QD 05/29/2013 Inactive Klor-Con 8 mEq tablet,extended release RxNorm: 587430 1 Tablet( s) PO BID 05/29/2013 02/26/2014 Inactive allopurinol 300 mg tablet RxNorm: 480224 1 Tablet(s) PO QD 05/29/20 13 11/19/2013 Inactive Bystolic 10 mg tablet RxNorm: 424620 1 Tablet(s) PO QAM take one daily in the morning. 05/29/2013 11/11/2013 Inactive scopolamine 1.5 mg 72 hr Transderm Patch RxNorm: 623054 Application TD Q72H for motion sickness 05/26/2013 07/22/2013 Inactive Soma 350 mg tablet RxNorm: 158263 1 Tablet(s) PO TID as needed for spasm 05/19/2013 10/13/2013 Inactive diclofenac sodium 75 mg tablet,delayed release RxNorm: 56051 8 1 Tablet(s) PO BID for pain 05/14/2013 07/22/2013 Inactive allopurinol 300 mg tablet RxNorm: 809805 1 Tablet(s) PO QD 04/25/20 13 05/28/2013 Inactive alprazolam 0.5 mg tablet RxNorm: 983235 1 Tablet(s) PO BID May refill on 04/26/13 04/25/2013 06/23/2013 Inactive prn Celebrex 200 mg capsule RxNorm: 268463 1 Capsule(s) PO QD 04/16/2013 12/29/2013 Inactive alprazolam 0.5 mg tablet RxNorm: 729734 1 Tablet(s) PO BID May refill on 04/26/13 04/16/2013 04/24/2013 Inactive prn Soma 350 mg tablet RxNorm: 340514 1 Tablet(s) PO TID as needed for spasm 04/16/2013 No Stop Date Active Lasix 40 mg tablet RxNorm: 069722 1 Tablet(s) PO QAM s hould take potassium supplementation with this medication 04/16/2013 06/14/2013 Inactive clonidine 0.1 mg tablet RxNorm: 504488 1 Tablet(s) PO TID 04/16/2013 08/03/2013 Inactive replaces 0.2mg dose prednisone 20 mg tablet RxNorm: 697458 1 Tablet(s) PO BID 04/16/2013 04/20/2013 Inactive diclofenac sodium 75 mg tablet,delayed release RxNorm: 44766 8 1 Tablet(s) PO BID for pain 04/14/2013 05/13/2013 Inactive hydrocodone 10 mg-acetaminophen 325 mg tablet RxNorm: 151391 2 1-2 Tablet(s) PO QID as needed for severe pain 04/14/2013 No Stop Date Active Lasix 40 mg tablet RxNorm: 054882 1 Tablet(s) PO QAM s hould take potassium supplementation with this medication 03/31/2013 04/15/2013 Inactive Celebrex 200 mg capsule RxNorm: 235242 1 Capsule(s) PO QD 03/31/2013 04/15/2013 Inactive alprazolam 0.5 mg tablet RxNorm: 556842 1 Tablet(s) PO BID 03/28/20 13 04/15/2013 Inactive prn hydrocodone 10 mg-acetaminophen 325 mg tablet RxNorm: 523361 2 1-2 Tablet(s) PO QID as needed for severe pain 03/10/2013 No Stop Date Active metformin ER 500 mg 24 hr tablet,extended release RxNorm: 86 1018 1 Tablet(s) PO QD 03/06/2013 07/22/2013 Inactive clindamycin 300 mg capsule RxNorm: 219308 2 Capsule(s) PO TID 03/0503/14/2013 Inactive Zaroxolyn 2.5 mg tablet RxNorm: 228851 1 Tablet(s) PO QAM 03/05/2013 05/19/2015 Inactive amlodipine 10 mg tablet RxNorm: 934165 1 Tablet(s) PO QD 03/03/2013 0 05/25/2013 Inactive Norvasc 10 mg tablet RxNorm: 465658 1 Tablet(s) PO QD 02/28/201307/11 Inactive Celebrex 200 mg capsule RxNorm: 465222 1 Capsule(s) PO QD 02/28/2013 03/30/2013 Inactive diclofenac sodium 75 mg tablet,delayed release RxNorm: 92887 8 1 Tablet(s) PO BID for pain 02/14/2013 03/15/2013 Inactive Soma 350 mg tablet RxNorm: 701902 1 Tablet(s) PO TID as needed for spasm 02/14/2013 No Stop Date Active hydrocodone 10 mg-acetaminophen 325 mg tablet RxNorm: 233171 2 1-2 Tablet(s) PO QID as needed for severe pain 02/14/2013 No Stop Date Active Norvasc 10 mg tablet RxNorm: 950191 1 Tablet(s) PO QD 02/10/201302/09 Inactive Celebrex 200 mg capsule RxNorm: 657025 1 Capsule(s) PO QD 01/27/2013 01/26/2013 Inactive Premarin 1.25 mg tablet RxNorm: 766424 1-2 Tablet(s) PO QD 01/28/20 13 06/25/2013 Inactive alprazolam 0.5 mg tablet RxNorm: 273160 1 Tablet(s) PO BID 01/28/20 13 02/25/2013 Inactive prn amlodipine 5 mg tablet RxNorm: 702449 1 Tablet(s) PO QD 01/27/2013 Inactive Celebrex 200 mg capsule RxNorm: 688893 1 Capsule(s) PO QD 01/27/2013 02/27/2013 Inactive gabapentin 600 mg tablet RxNorm: 003762 1 Tablet(s) PO QHS 01/16/20 13 07/22/2013 Inactive Soma 350 mg tablet RxNorm: 622807 1 Tablet(s) PO TID as needed for spasm 01/15/2013 No Stop Date Active hydrocodone 10 mg-acetaminophen 325 mg tablet RxNorm: 167155 2 1-2 Tablet(s) PO QID as needed for severe pain 01/15/2013 No Stop Date Active Soma 350 mg tablet RxNorm: 832419 1 Tablet(s) PO TID as needed for spasm 01/13/2013 No Stop Date Active alprazolam 0.5 mg tablet RxNorm: 320405 1 Tablet(s) PO BID 12/31/19 13 01/26/2013 Inactive prn diclofenac sodium 75 mg tablet,delayed release RxNorm: 78526 8 1 Tablet(s) PO BID for pain 12/09/2012 01/07/2013 Inactive gabapentin 600 mg tablet RxNorm: 676036 1 Tablet(s) PO QHS 12/10/19 13 01/07/2013 Inactive hydrocodone 10 mg-acetaminophen 325 mg tablet RxNorm: 689183 2 1-2 Tablet(s) PO QID as needed for severe pain 12/02/2012 No Stop Date Active Levaquin 750 mg tablet RxNorm: 478701 1 Tablet(s) PO QD 11/21/2012 Inactive Singulair 10 mg tablet RxNorm: 346683 1 Tablet(s) PO QD 11/11/2012 Inactive clonidine 0.2 mg tablet RxNorm: 677891 1 Tablet(s) PO TID 11/11/2012 04/15/2013 Inactive alprazolam 0.5 mg tablet RxNorm: 309199 1 Tablet(s) PO BID 11/12/19 13 12/10/2012 Inactive prn Klor-Con 8 mEq tablet,extended release RxNorm: 835493 1 Tablet( s) PO BID 11/11/2012 03/04/2013 Inactive hydrocodone 10 mg-acetaminophen 325 mg tablet RxNorm: 201781 2 1-2 Tablet(s) PO QID as needed for severe pain 11/06/2012 No Stop Date Active alprazolam 0.5 mg tablet RxNorm: 353912 1 Tablet(s) PO BID 10/15/19 13 11/10/2012 Inactive prn hydrocodone-acetaminophen 10 mg-325 mg tablet RxNorm: 041217 2 1-2 Tablet(s) PO QID as needed for severe pain 10/10/2012 10/09/2012 Inactive allopurinol 300 mg tablet RxNorm: 760807 1 Tablet(s) PO QD 09/20/19 13 12/18/2012 Inactive alprazolam 0.5 mg tablet RxNorm: 016761 1 Tablet(s) PO BID 09/17/19 13 10/14/2012 Inactive prn hydrocodone-acetaminophen 10 mg-325 mg tablet RxNorm: 681756 2 1-2 Tablet(s) PO QID as needed for severe pain 08/22/2012 08/21/2012 Inactive Norvasc 10 mg tablet RxNorm: 094433 1 Tablet(s) PO QD 08/12/201201/10 Inactive Premarin 1.25 mg tablet RxNorm: 841093 1-2 Tablet(s) PO QD 07/30/20 12 12/26/2012 Inactive alprazolam 0.5 mg tablet RxNorm: 032432 1 Tablet(s) PO BID 07/29/20 12 08/27/2012 Inactive prn Klor-Con 8 mEq tablet,extended release RxNorm: 695001 1 Tablet( s) PO BID 07/29/2012 11/10/2012 Inactive hydrocodone-acetaminophen 10 mg-325 mg tablet RxNorm: 099976 2 1-2 Tablet(s) PO QID as needed for severe pain 07/29/2012 No Stop Date Active Premarin 1.25 mg tablet RxNorm: 707823 1-2 Tablet(s) PO QD 07/29/20 12 07/29/2012 Inactive clonidine 0.2 mg tablet RxNorm: 454936 1 Tablet(s) PO TID 07/29/2012 10/28/2012 Inactive ketorolac 10 mg tablet RxNorm: 110628 1 Tablet(s) PO QID prn he adache 07/18/2012 No Stop Date Active hydrocodone-acetaminophen 10 mg-325 mg tablet RxNorm: 931242 2 1-2 Tablet(s) PO QID as needed for severe pain 07/03/2012 No Stop Date Active amlodipine 5 mg tablet RxNorm: 050319 1 Tablet(s) PO QD 07/02/2012 Inactive allopurinol 300 mg tablet RxNorm: 400836 1 Tablet(s) PO QD 07/02/20 12 09/19/2012 Inactive Celebrex 200 mg capsule RxNorm: 075578 1 Capsule(s) PO QD for j oint pain 06/26/2012 10/23/2012 Inactive diclofenac sodium 75 mg tablet,delayed release RxNorm: 32291 8 1 Tablet(s) PO BID for pain 06/19/2012 09/16/2012 Inactive hydrocodone-acetaminophen 10 mg-325 mg tablet RxNorm: 621199 2 1-2 Tablet(s) PO QID as needed for severe pain 06/10/2012 No Stop Date Active alprazolam 0.5 mg tablet RxNorm: 776501 1 Tablet(s) PO BID 06/03/20 12 07/02/2012 Inactive prn ketorolac 10 mg tablet RxNorm: 597358 1 Tablet(s) PO Q8H 05/27/2012 0 01/21/2019 Inactive as needed for headache hydrocodone-acetaminophen 10 mg-325 mg tablet RxNorm: 686749 2 1-2 Tablet(s) PO QID as needed for severe pain 05/15/2012 No Stop Date Active allopurinol 300 mg tablet RxNorm: 898843 1 Tablet(s) PO QD 05/14/20 12 06/12/2012 Inactive allopurinol 300 mg tablet RxNorm: 668101 1 Tablet(s) PO QD 05/14/20 12 05/13/2012 Inactive amlodipine 5 mg tablet RxNorm: 684440 1 Tablet(s) PO QD 05/01/2012 Inactive amlodipine 5 mg Tab RxNorm: 987968 1 Tablet(s) PO QD 05/01/201204/30 Inactive Celebrex 200 mg capsule RxNorm: 916303 1 Capsule(s) PO QD for j oint pain 05/01/2012 06/25/2012 Inactive Singulair 10 mg tablet RxNorm: 127586 1 Tablet(s) PO QD 05/01/2012 Inactive alprazolam 0.5 mg tablet RxNorm: 694934 1 Tablet(s) PO BID 05/01/20 12 05/30/2012 Inactive prn Celebrex 200 mg Cap RxNorm: 593216 1 Capsule(s) PO QD for joint radu n 05/01/2012 04/30/2012 Inactive hydrocodone-acetaminophen 10 mg-325 mg tablet RxNorm: 981325 2 1-2 Tablet(s) PO QID as needed for severe pain 04/19/2012 No Stop Date Active Lasix 40 mg tablet RxNorm: 372584 1 Tablet(s) PO RAZA ramirez take potassium supplementation with this medication 04/05/2012 06/03/2012 Inactive alprazolam 0.5 mg Tab RxNorm: 673551 1 Tablet(s) PO BID 04/05/2012 Inactive prn hydrocodone-acetaminophen 10 mg-325 mg Tab RxNorm: 5531277 1-2 Tablet(s) PO QID as needed for severe pain 03/25/2012 03/24/2012 Inactive clonidine 0.2 mg Tab RxNorm: 284952 1 Tablet(s) PO TID 03/08/2012 Inactive alprazolam 0.5 mg Tab RxNorm: 792019 1 Tablet(s) PO BID 03/08/2012 Inactive prn Soma 350 mg tablet RxNorm: 422499 1 Tablet(s) PO TID for spasm 02/0903/18/2012 Inactive clonidine 0.2 mg tablet RxNorm: 068978 1 Tablet(s) PO TID 03/08/2012 07/28/2012 Inactive Celebrex 200 mg Cap RxNorm: 802682 1 Capsule(s) PO QD for joint radu n 03/01/2012 04/29/2012 Inactive amlodipine 5 mg Tab RxNorm: 214618 1 Tablet(s) PO QD 02/26/201202/24 Inactive amlodipine 5 mg Tab RxNorm: 307040 1 Tablet(s) PO QD 02/26/201204/25 Inactive Bactroban 2 % Ointment RxNorm: 442024 Application TOP QID to sores 02/23/2012 No Stop Date Active amlodipine 2.5 mg tablet RxNorm: 241790 1 Tablet(s) PO QHS 02/20/2002/25/2012 Inactive doxycycline hyclate 100 mg Cap RxNorm: 0137243 1 Capsule(s) PO BID 02/20/2012 02/29/2012 Inactive hydrocodone-acetaminophen 10 mg-325 mg Tab RxNorm: 3861787 1-2 T ablet(s) PO QID 02/08/2012 No Stop Date Active alprazolam 0.5 mg Tab RxNorm: 278374 1 Tablet(s) PO BID 02/08/2012 Inactive prn Singulair 10 mg Tab RxNorm: 289624 1 Tablet(s) PO QD 02/08/201204/30 Inactive Soma 350 mg Tab RxNorm: 058969 1 Tablet(s) PO TID for spasm 012 03/07/2012 Inactive Soma 350 mg Tab RxNorm: 524731 1 Tablet(s) PO TID for spasm 012 02/05/2012 Inactive diclofenac sodium 75 mg tablet,delayed release RxNorm: 84431 8 1 Tablet(s) PO BID for pain 02/01/2012 03/18/2012 Inactive Celebrex 200 mg Cap RxNorm: 597897 1 Capsule(s) PO QD for joint radu n 01/30/2012 02/28/2012 Inactive Lasix 40 mg Tab RxNorm: 822760 1 Tablet(s) PO QAM 01/24/2012 03/18/20 12 Inactive potassium chloride ER 20 mEq tablet,extended release(part/cr yst) RxNorm: 345823 2 Tablet(s) PO BID 01/24/2012 02/22/2012 Inactive alprazolam 0.5 mg Tab RxNorm: 844120 1 Tablet(s) PO BID 01/11/2012 Inactive prn hydrocodone-acetaminophen 10 mg-325 mg Tab RxNorm: 3955504 1-2 T ablet(s) PO QID 01/11/2012 No Stop Date Active Ambien 10 mg Tab RxNorm: 626087 1 Tablet(s) PO QHS 01/11/2012 012 Inactive Klor-Con 8 mEq Tab RxNorm: 411283 1 Tablet(s) PO BID 01/11/201201/22 Inactive diclofenac sodium 75 mg Tab, Delayed Release RxNorm: 489701 1 Tablet(s) PO BID for pain 01/10/2012 01/31/2012 Inactive Ambien 10 mg Tab RxNorm: 110908 1 Tablet(s) PO QHS 12/11/2011 012 Inactive alprazolam 0.5 mg Tab RxNorm: 906802 1 Tablet(s) PO BID 12/11/2011 Inactive prn hydrocodone 10 mg-acetaminophen 325 mg tablet RxNorm: 836436 1-2 Tablet(s) PO TID 11/28/2011 No Stop Date Active as needed for pa in - Previous quantity #240, will start dosing for #180 in April 2011 per Doctor Td. Ambien 10 mg Tab RxNorm: 854226 1 Tablet(s) PO QHS 11/09/2011 012 Inactive alprazolam 0.5 mg Tab RxNorm: 083891 1 Tablet(s) PO BID 11/09/2011 Inactive prn hydrocodone-acetaminophen 10 mg-325 mg Tab RxNorm: 0422056 1-2 T ablet(s) PO TID 11/06/2011 No Stop Date Active as needed for pain - Previous quantity #240, will start dosing for #180 in April 2011 per Doctor Td. Singulair 10 mg Tab RxNorm: 008870 1 Tablet(s) PO QD 10/13/201110/12 Inactive Singulair 10 mg Tab RxNorm: 459279 1 Tablet(s) PO QD 10/13/201102/06 Inactive hydrocodone-acetaminophen 10 mg-325 mg Tab RxNorm: 9215015 1-2 T ablet(s) PO TID 10/10/2011 10/09/2011 Inactive as needed for pain - Previous quantity #240, will start dosing for #180 in April 2011 per Doctor Td. hydrocodone-acetaminophen 10 mg-325 mg Tab RxNorm: 0754397 1-2 T ablet(s) PO TID 10/09/2011 No Stop Date Active as needed for pain - Previous quantity #240, will start dosing for #180 in April 2011 per Doctor Td. Klor-Con 8 mEq Tab RxNorm: 908931 1 Tablet(s) PO BID 10/02/201101/09 Inactive triamterene 75 mg-hydrochlorothiazide 50 mg tablet RxNorm: 3 21739 1 Tablet(s) PO QD 09/14/2011 03/06/2013 Inactive Ambien 10 mg Tab RxNorm: 560044 1 Tablet(s) PO QHS 09/14/2011 012 Inactive hydrocodone-acetaminophen 10 mg-325 mg Tab RxNorm: 2021977 1-2 T ablet(s) PO TID 09/14/2011 No Stop Date Active as needed for pain - Previous quantity #240, will start dosing for #180 in April 2011 per Doctor Td. alprazolam 0.5 mg Tab RxNorm: 210537 1 Tablet(s) PO BID 09/14/2011 Inactive prn Zithromax 500 mg Tab RxNorm: 953340 1 Tablet(s) PO QD 09/13/201109/10 Inactive prednisone 20 mg Tab RxNorm: 767109 1 Tablet(s) PO BID 08/31/2011 Inactive Ambien 10 mg Tab RxNorm: 560290 1 Tablet(s) PO QHS 08/17/2011 011 Inactive hydrocodone-acetaminophen 10 mg-325 mg Tab RxNorm: 4145580 1-2 T ablet(s) PO TID 08/17/2011 No Stop Date Active as needed for pain - Previous quantity #240, will start dosing for #180 in April 2011 per Doctor Td. clonidine 0.2 mg Tab RxNorm: 296242 1 Tablet(s) PO TID 08/17/201112/2011 Inactive Ambien 10 mg Tab RxNorm: 437357 1 Tablet(s) PO QHS 08/17/2011 019 Inactive alprazolam 0.5 mg Tab RxNorm: 984773 1 Tablet(s) PO BID 08/17/2011 Inactive prn hydrocodone-acetaminophen 10 mg-325 mg Tab RxNorm: 6496769 1-2 T ablet(s) PO TID 08/17/2011 08/16/2011 Inactive as needed for pain - Previous quantity #240, will start dosing for #180 in April 2011 per Doctor Td. Singulair 10 mg Tab RxNorm: 240648 1 Tablet(s) PO QD 08/17/201108/16 Inactive Klor-Con 8 mEq Tab RxNorm: 712339 1 Tablet(s) PO QD 08/17/20112011 Inactive alprazolam 0.5 mg Tab RxNorm: 921863 1 Tablet(s) PO BID 07/20/2011 Inactive prn Ambien 10 mg Tab RxNorm: 187559 1 Tablet(s) PO QHS 07/20/2011 012 Inactive Singulair 10 mg Tab RxNorm: 116035 1 Tablet(s) PO QD 07/20/201107/19 Inactive Premarin 1.25 mg tablet RxNorm: 204942 2 Tablet(s) PO QD 07/20/2011 0 01/21/2019 Inactive Premarin 1.25 mg tablet RxNorm: 750727 1-2 Tablet(s) PO QD 07/20/20 11 12/16/2011 Inactive Premarin 1.25 mg Tab RxNorm: 027863 1-2 Tablet(s) PO QD 07/06/2011 Inactive alprazolam 0.5 mg Tab RxNorm: 606788 1 Tablet(s) PO BID 06/22/2011 Inactive prn alprazolam 0.5 mg Tab RxNorm: 358966 1 Tablet(s) PO BID 06/22/2011 Inactive prn Premarin 1.25 mg Tab RxNorm: 059106 1 Tablet(s) PO QD m ay do 90 day fill if desired 06/22/2011 07/05/2011 Inactive hydrocodone-acetaminophen 10 mg-325 mg Tab RxNorm: 1618069 1-2 T ablet(s) PO TID 06/22/2011 No Stop Date Active as needed for pain - Previous quantity #240, will start dosing for #180 in April 2011 per Doctor Td. clonidine 0.2 mg Tab RxNorm: 818131 1 Tablet(s) PO TID 05/25/201103/2011 Inactive triamterene-hydrochlorothiazide 75 mg-50 mg Tab RxNorm: 3108 18 1 Tablet(s) PO QD 05/25/2011 09/13/2011 Inactive alprazolam 0.5 mg Tab RxNorm: 832939 1 Tablet(s) PO BID 05/25/2011 Inactive prn hydrocodone-acetaminophen 10 mg-325 mg Tab RxNorm: 9107219 1-2 T ablet(s) PO TID 05/25/2011 No Stop Date Active as needed for pain - Previous quantity #240, will start dosing for #180 in April 2011 per Doctor Td. Robaxin-750 750 mg Tab RxNorm: 712404 2 Tablet(s) PO QHS 05/22/2011 1 Inactive prn spasm hydrocodone-acetaminophen 10 mg-325 mg Tab RxNorm: 3299769 1-2 T ablet(s) PO TID 04/26/2011 No Stop Date Active as needed for pain - Previous quantity #240, will start dosing for #180 in April 2011 per Doctor Td. alprazolam 0.5 mg Tab RxNorm: 242739 1 Tablet(s) PO BID 04/25/2011 Inactive prn Klor-Con 8 mEq Tab RxNorm: 827621 1 Tablet(s) PO QD 03/30/20112010 Inactive Klor-Con 8 mEq Tab RxNorm: 506354 1 Tablet(s) PO QD 03/29/20112010 Inactive hydrocodone-acetaminophen 10 mg-325 mg Tab RxNorm: 4956160 1-2 T ablet(s) PO TID 03/20/2011 04/25/2011 Inactive as needed for pain - Previous quantity #240, will start dosing for #180 in April 2011 per Doctor Td. alprazolam 0.5 mg Tab RxNorm: 216652 1 Tablet(s) PO BID prn 011 03/30/2011 Inactive Ambien 10 mg Tab RxNorm: 346679 1 Tablet(s) PO QHS 03/01/2011 011 Inactive cyclobenzaprine 10 mg Tab RxNorm: 762743 1 Tablet(s) PO TID 011 03/18/2012 Inactive cyclobenzaprine 10 mg Tab RxNorm: 307906 1 Tablet(s) PO TID 011 01/08/2011 Inactive cyclobenzaprine 10 mg Tab RxNorm: 430721 1 Tablet(s) PO TID 011 12/20/2010 Inactive terbinafine 250 mg Tab RxNorm: 921731 1 Tablet(s) PO QD 12/12/2010 Inactive triamterene-hydrochlorothiazide 75 mg-50 mg Tab RxNorm: 3108 18 1 Tablet(s) PO QD 12/07/2010 06/04/2011 Inactive Klor-Con 8 8 mEq Tab RxNorm: 527149 1 Tablet(s) PO QD 12/07/201001/08 Inactive Premarin 1.25 mg Tab RxNorm: 925090 2 Tablet(s) PO QD 12/07/201001/08 Inactive clonidine 0.2 mg Tab RxNorm: 129531 1 Tablet(s) PO TID 12/07/2010 Inactive hydrocodone-acetaminophen 7.5 mg-650 mg Tab RxNorm: 037639 1 Ta blet(s) PO Q4H 12/05/2010 01/21/2019 Inactive hydrocodone-acetaminophen 7.5 mg-650 mg Tab RxNorm: 514869 1 Ta blet(s) PO Q4H 10/26/2010 11/14/2010 Inactive hydrocodone-acetaminophen 7.5 mg-650 mg Tab RxNorm: 978327 1 Ta blet(s) PO Q4H 10/13/2010 10/25/2010 Inactive hydrocodone-acetaminophen 7.5 mg-650 mg Tab RxNorm: 096681 1 Ta blet(s) PO Q4H 09/15/2010 09/12/2010 Inactive alprazolam 0.5 mg Tab RxNorm: 076079 1 Tablet(s) PO BID prn 011 09/12/2010 Inactive terbinafine 250 mg Tab RxNorm: 520855 1 Tablet(s) PO QD 09/05/2010 Inactive hydrocodone-acetaminophen 7.5 mg-650 mg Tab RxNorm: 452805 1 Ta blet(s) PO Q4H 08/29/2010 09/17/2010 Inactive alprazolam 0.5 mg Tab RxNorm: 925923 1 Tablet(s) PO BID prn 010 09/27/2010 Inactive alprazolam 0.5 mg Tab RxNorm: 592490 1 Tablet(s) PO BID prn 010 09/06/2010 Inactive Klor-Con 8 mEq Tab RxNorm: 508564 1 Tablet(s) PO QD 08/08/20102010 Inactive hydrocodone-acetaminophen 7.5 mg-650 mg Tab RxNorm: 885392 1 Ta blet(s) PO Q4H 08/08/2010 08/27/2010 Inactive Ambien 10 mg Tab RxNorm: 373313 1 Tablet(s) PO QHS 08/08/2010 Inactive clonidine 0.2 mg Tab RxNorm: 722452 1 Tablet(s) PO TID 08/08/2010 Inactive Premarin 1.25 mg Tab RxNorm: 916277 2 Tablet(s) PO QD 08/08/201009/12 Inactive Ambien 10 mg Tab RxNorm: 522291 1 Tablet(s) PO QHS 07/18/2010 Inactive alprazolam 0.5 mg Tab RxNorm: 793058 1 Tablet(s) PO BID prn 010 08/07/2010 Inactive hydrocodone-acetaminophen 7.5 mg-650 mg Tab RxNorm: 833892 1 Ta blet(s) PO Q4H 07/12/2010 07/31/2010 Inactive clonidine 0.2 mg Tab RxNorm: 742464 1 Tablet(s) PO TID 06/20/2010 Inactive terbinafine 250 mg Tab RxNorm: 052798 1 Tablet(s) PO QD 05/24/2010 Inactive Clonidine 0.2 mg Tab RxNorm: 604652 1 Tablet(s) PO TID 05/24/201006/2010 Inactive Ambien 10 mg Tab RxNorm: 187091 1 Tablet(s) PO QHS 05/24/2010 Inactive alprazolam 0.5 mg Tab RxNorm: 644438 1 Tablet(s) PO BID 05/24/2010 Inactive Klor-Con 8 mEq Tab RxNorm: 193617 1 Tablet(s) PO QD 05/24/20102009 Inactive alprazolam 0.5 mg Tab RxNorm: 889723 2 Tablet(s) PO QD prn 05/24/2007/17/2010 Inactive triamterene-hydrochlorothiazide 75 mg-50 mg Tab RxNorm: 3108 18 1 Tablet(s) PO QD 05/24/2010 11/19/2010 Inactive Ambien 10 mg Tab RxNorm: 214141 1 Tablet(s) PO QHS 05/23/2010 Inactive Alprazolam 0.5 mg Tab RxNorm: 490233 2 Tablet(s) PO QD prn 05/23/20 10 05/23/2010 Inactive Premarin 1.25 mg Tab RxNorm: 264885 2 Tablet(s) PO QD 05/19/201007/12 Inactive Hydrocodone-Acetaminophen 7.5 mg-650 mg Tab RxNorm: 803922 1 Ta blet(s) PO Q4H 05/19/2010 03/20/2011 Inactive Prednisone 20 mg Tab RxNorm: 631431 1 Tablet(s) PO BID 05/17/2010 Inactive Prednisone 20 mg Tab RxNorm: 042719 1 Tablet(s) PO BID 05/06/201001/2010 Inactive Premarin 1.25 mg Tab RxNorm: 158024 Tablet(s) PO 2 M-W-F, and 1 Xe-Au-Lzf-Sun 05/05/2010 08/02/2010 Inactive Premarin 1.25 mg Tab RxNorm: 624843 Tablet(s) PO 2 M-W-F, and 1 Ry-Fa-Obh-Sun 05/04/2010 05/04/2010 Inactive Premarin 1.25 mg Tab RxNorm: 136442 Tablet(s) PO 2 M-W-F, and 1 Yx-La-Oye-Sun 05/04/2010 05/03/2010 Inactive Prednisone 20 mg Tab RxNorm: 390765 1 Tablet(s) PO BID 04/27/2010 Inactive Alprazolam 0.5 mg Tab RxNorm: 701120 2 Tablet(s) PO QD prn 04/26/20 10 05/22/2010 Inactive Clindamycin 300 mg Cap RxNorm: 886392 2 Capsule(s) PO TID 04/05/2010 04/18/2010 Inactive Terbinafine 250 mg Tab RxNorm: 004337 1 Tablet(s) PO QD 04/04/2010 Inactive Hydrocodone-Acetaminophen 7.5 mg-650 mg Tab RxNorm: 738571 1 Ta blet(s) PO Q4H 03/30/2010 04/18/2010 Inactive Avelox 400 mg Tab RxNorm: 068264 1 Tablet(s) PO QD 03/09/2010 010 Inactive Hydrocodone-Acetaminophen 7.5 mg-650 mg Tab RxNorm: 459292 1 Ta blet(s) PO Q4H 03/08/2010 03/27/2010 Inactive Alprazolam 0.5 mg Tab RxNorm: 607700 2 Tablet(s) PO QD prn 03/08/20 10 04/25/2010 Inactive Klor-Con 8 mEq Tab RxNorm: 243522 1 Tablet(s) PO QD when takes lasi x 03/07/2010 09/29/2019 Inactive Premarin 1.25 mg Tab RxNorm: 453132 1 Tablet(s) PO QD 03/03/201003/11 Inactive Alprazolam 0.5 mg Tab RxNorm: 250188 1 Tablet(s) PO BID PRN 010 No Stop Date Active triamterene-hydrochlorothiazide 75 mg-50 mg Tab RxNorm: 3108 18 1 Tablet(s) PO QD 02/09/2010 02/03/2011 Inactive Hydrocodone-Acetaminophen 10 mg-750 mg Tab RxNorm: 841761 1 Tablet(s) PO Q4H PRN 02/09/2010 03/20/2011 Inactive Clonidine 0.2 mg Tab RxNorm: 001512 1 Tablet(s) PO TID 01/13/201009/2009 Inactive Alprazolam 0.5 mg Tab RxNorm: 299178 1 Tablet(s) PO BID PRN 010 01/12/2010 Inactive Hydrocodone-Acetaminophen 10 mg-750 mg Tab RxNorm: 925706 1 Tablet(s) PO Q4H PRN 01/13/2010 01/12/2010 Inactive ANGELIQ 1 mg-0.5 mg Tab RxNorm: 1255379 1 Tablet(s) PO QD 12/27/2009 01/23/2010 Inactive Lasix 40 mg Tab RxNorm: 307766 1 Tablet(s) PO QAM 12/14/2009 06/11/20 10 Inactive Vitamin B12 1000mcg Tablet RxNorm: 1 Tablet(s) PO QD No Start Date Active cyclobenzaprine 10 mg tablet RxNorm: 660716 1 Tablet(s) PO TID as needed DO NOT USE WITH BACLOFEN No Start Date Active Vitamin D 5,000 unit Tab RxNorm: 1 Tablet(s) PO QD No Start Date Active vitamin E (dl, acetate) 400 unit Cap RxNorm: 458338 1 Capsule(s ) PO QD No Start Date Active Benadryl 25 mg Cap RxNorm: 3109483 Capsule(s) PO PRN No Start Date Inactive amitriptyline 100 mg tablet RxNorm: 989143 1 Tablet(s) PO QHS No St art Date 11/27/2016 Inactive Zithromax Z-Dustin 250 mg tablet RxNorm: 075470 Tablet(s) PO as di rected No Start Date 07/22/2013 Inactive Klor-Con 8 mEq tablet,extended release RxNorm: 421500 1 Tablet( s) PO BID No Start Date 07/28/2012 Inactive scopolamine 1.5 mg 72 hr Transderm Patch RxNorm: 112855 Application TD Q72H for motion sickness No Start Date 05/25/2013 Inactive Klonopin 1 mg tablet RxNorm: 999728 1-2 Tablet(s) PO QHS as nee ded for sleep No Start Date 06/20/2015 Inactive Klor-Con M20 mEq tablet,extended release RxNorm: 765476 2 Tablet(s) PO BID to use with lasix No Start Date 11/11/2013 Inactive Bystolic 5 mg tablet RxNorm: 589136 1 Tablet(s) PO QD No Start Date 1 Inactive Bystolic 10 mg tablet RxNorm: 398718 1 Tablet(s) PO BID No Start Da te 07/06/2015 Inactive Premarin 1.25 mg Tab RxNorm: 677532 Tablet(s) PO 2 --, and 1 [id number] No Start Date 05/03/2010 Inactive baclofen 20 mg tablet RxNorm: 832342 1 Tablet(s) PO TID as needed for muscle spasm No Start Date 07/22/2015 Inactive hydrocodone-acetaminophen 7.5 mg-650 mg Tab RxNorm: 611317 1 Tablet(s) PO Q4H as needed for pain No Start Date 03/20/2011 Inactive albuterol sulfate 1.25 mg/3 mL Neb Solution RxNorm: 969488 1 Unit Dose INH Q4H 2boxes No Start Date 09/06/2015 Inactive Butrans 20 mcg/hour Transderm Patch RxNorm: 372831 1 TD WEEKLY apply to skin weekly after removing previous. No Start Date 07/22/2013 Inactive Medrol (Dustin) 4 mg tablets in a dose pack RxNorm: 386154 Tablet(s) PO As Directed No Start Date 07/30/2016 Inactive hydrocodone-acetaminophen 10 mg-325 mg Tab RxNorm: 9126799 1-2 Tablet(s) PO TID as needed for pain No Start Date 03/19/2011 Inactive Klonopin 1 mg tablet RxNorm: 872796 1 Tablet(s) PO QHS No Start Date 02/28/2016 Inactive honey topical RxNorm: topical No Start Date 06/16/2018 Inactive Clonidine 0.2 mg Tab RxNorm: 219938 1 Tablet(s) PO TID No Start Date 01/12/2010 Inactive ketorolac 10 mg tablet RxNorm: 980242 1 Tablet(s) PO Q8H No Start D ate 03/18/2012 Inactive as needed for headache Singulair 10 mg Tab RxNorm: 044932 1 Tablet(s) PO QD No Start Date Inactive Premarin 1.25 mg Tab RxNorm: 819770 1 Tablet(s) PO QD No Start Date 1 Inactive Flonase 50 mcg/Actuation Nasal [place] RxNorm: 6529007 1 [place] CECELIA AL BID No Start Date 03/18/2012 Inactive Terbinafine 250 mg Tab RxNorm: 963058 1 Tablet(s) PO QD No Start Da te 04/03/2010 Inactive Fexofenadine 180 mg Tab RxNorm: 5381471 1 Tablet(s) PO QD No Start Date 09/06/2015 Inactive baclofen 20 mg tablet RxNorm: 842004 1 Tablet(s) PO TID as needed N o Start Date 05/25/2014 Inactive Diovan 160 mg Tab RxNorm: 573559 1 Tablet(s) PO QD No Start Date 09/12 Inactive mupirocin 2 % topical ointment RxNorm: 297966 1 Application TOP QID No Start Date 04/25/2016 Inactive ZOFRAN ODT 4 mg Tab, Rapid Dissolve RxNorm: 388210 1 Tablet(s) PO Q4H No Start Date 03/18/2012 Inactive as needed for nausea and vomiting Alprazolam 0.5 mg Tab RxNorm: 705484 1 Tablet(s) PO BID PRN No Star t Date 01/12/2010 Inactive cyclobenzaprine 10 mg tablet RxNorm: 893319 1 Tablet(s) PO TID as needed for muscle spasm No Start Date 10/08/2017 Inactive Albuterol 0.083% Aerosol Solution RxNorm: 1 Appl ication INH Q4H Use one ampule every 4 hrs with nebulizer as needed for shortness of breath. No Start Date 10/09/2010 Inactive lorazepam 1 mg tablet RxNorm: 186997 1 1/2 Tablet(s) PO QHS No Star t Date 02/02/2016 Inactive Melatonin 3 mg Tab RxNorm: 898151 Tablet(s) PO PRN No Start Date 07/11 Inactive Medrol (Dustin) 4 mg Tabs in a Dose Pack RxNorm: 684680 Tablet(s) PO N o Start Date 11/28/2010 Inactive lorazepam 1 mg tablet RxNorm: 380235 1 Tablet(s) PO QHS as need ed for sleep No Start Date 01/30/2016 Inactive hydrocodone-acetaminophen 10 mg-325 mg Tab RxNorm: 7628156 1-2 Tablet(s) PO QID as needed for severe pain No Start Date 03/24/2012 Inactive celecoxib 200 mg capsule RxNorm: 762615 1 Capsule(s) PO BID No Star t Date 06/26/2019 Inactive amlodipine 5 mg-benazepril 20 mg capsule RxNorm: 141329 1 Capsu le(s) PO QD No Start Date 04/10/2017 Inactive Bystolic 20 mg tablet RxNorm: 756634 1/2 Tablet(s) PO QAM No Start Date 01/23/2016 Inactive Bystolic 20 mg tablet RxNorm: 141470 1 Tablet(s) PO QAM No Start Da te 04/25/2016 Inactive Ambien 10 mg Tab RxNorm: 925878 1 Tablet(s) PO QHS No Start Date 05/11 Inactive Klor-Con 8 mEq Tab RxNorm: 746719 1 Tablet(s) PO QD when takes lasix No Start Date 03/06/2010 Inactive aspirin 81 mg tablet RxNorm: 727476 1 Tablet(s) PO QD No Start Date 0 01/29/2018 Inactive hydrocodone-acetaminophen 10 mg-325 mg Tab RxNorm: 8987925 1-2 T ablet(s) PO QID No Start Date 01/10/2012 Inactive Bystolic 10 mg tablet RxNorm: 475297 1 Tablet(s) PO QAM take one daily in the morning. No Start Date 05/28/2013 Inactive nystatin 100,000 unit/mL Oral Susp RxNorm: 241218 5 Milliliter( s) PO QID No Start Date 03/18/2012 Inactive swish and spit scopolamine 1.5 mg 72 hr Transderm Patch RxNorm: 839375 1 Unit Dose TD Q72H for motion sickness No Start Date 12/23/2013 Inactive Hydrocodone-Acetaminophen 10 mg-750 mg Tab RxNorm: 159060 1 Tablet(s) PO Q4H PRN No Start Date 01/12/2010 Inactive Soma 350 mg tablet RxNorm: 685507 1 Tablet(s) PO TID as needed for spasm No Start Date 01/12/2013 Inactive baclofen 10 mg tablet RxNorm: 129997 1 Tablet(s) PO TID as needed for muscle spasm No Start Date 09/18/2019 Inactive Soma 350 mg Tab RxNorm: 193758 1 Tablet(s) PO TID for spasm No Star t Date 01/31/2012 Inactive Co Q-10 400 mg capsule RxNorm: 036818 1 Capsule(s) PO QD No Start D ate 01/21/2019 Inactive nystatin 100,000 unit/gram topical cream RxNorm: 227449 Applica tion TOP BID No Start Date 03/22/2015 Inactive Exforge 5 mg-160 mg Tab RxNorm: 395641 1 Tablet(s) PO QD No Start D ate 10/09/2010 Inactive Hydrocodone-Acetaminophen 7.5 mg-650 mg Tab RxNorm: 290841 1 Ta blet(s) PO Q4H No Start Date 03/07/2010 Inactive Robaxin-750 750 mg Tab RxNorm: 179266 1-2 Tablet(s) PO TID prn spasm No Start Date 05/21/2011 Inactive amlodipine 5 mg tablet RxNorm: 685984 1 Tablet(s) PO QHS No Start D ate 09/29/2015 Inactive oxycodone-acetaminophen 10 mg-325 mg tablet RxNorm: 6548819 1-2 Tablet(s) PO Q6H No Start Date 06/16/2018 Inactive Triamterene-Hydrochlorothiazide 75 mg-50 mg Tab RxNorm: 3108 18 1 Tablet(s) PO QD No Start Date 02/08/2010 Inactive Alprazolam 0.5 mg Tab RxNorm: 647355 2 Tablet(s) PO QD prn No Start Date 03/07/2010 Inactive Bystolic 20 mg tablet RxNorm: 507539 1 Tablet(s) PO QAM No Start Da te 08/17/2015 Inactive ketorolac 10 mg tablet RxNorm: 577986 1 Tablet(s) PO QID prn he adache No Start Date 07/17/2012 Inactive acyclovir 800 mg Tab RxNorm: 278592 1 Tablet(s) PO BID No Start Date 03/18/2012 Inactive duloxetine 60 mg capsule,delayed release RxNorm: 786784 1 Capsu le(s) PO QD No Start Date 09/29/2015 Inactive Norvasc 5 mg tablet RxNorm: 027419 1 Tablet(s) PO QHS No Start Date 1 10/18/2014 Inactive promethazine 25 mg tablet RxNorm: 956653 1 Tablet(s) PO Q8H use sparingly No Start Date 07/22/2013 Inactive alprazolam 0.5 mg tablet RxNorm: 046203 3 Tablet(s) PO QHS No Start Date 06/06/2015 Inactive Lunesta 3 mg tablet RxNorm: 955761 1 Tablet(s) PO QHS No Start Date 0 09/20/2017 Inactive hydrocodone-acetaminophen 10 mg-325 mg Tab RxNorm: 3633295 1-2 Tablet(s) PO TID as needed for pain No Start Date 12/10/2011 Inactive Coricidin HBP Cough & Cold 4 mg-30 mg Tab RxNorm: 5419910 Tablet (s) PO PRN No Start Date 10/09/2010 Inactive Bactroban 2 % Ointment RxNorm: 822236 Application TOP QID to so res No Start Date 02/22/2012 Inactive Flonase 50 mcg/actuation Nasal [place] RxNorm: 121758 2 [place] QHS No Start Date 03/03/2014 Inactive Medication Administered No Medication Administered data Immunizations Vaccine Codes Date Status Tetanus, Diptheria, Pertussis CVX: 115 02/27/2014 Results Observation Observation Code Item Item Code Result Date S ervice Location [facility]HENS[facility] 18213 AST 15 U/L 2019 Unknown [facility] 53012 ALT 13 U/L 2019 Unknown [facility] 07202 BUN 12 mg/dL 2019 Unknown [facility] 42625 ALBUMIN 3.9 g/dL 2019 Unknown [facility] 59101 CHLORIDE 97 mmol/L 2019 Unknown [facility] 09200 Bili Total 0.4 mg/dL 09/29 Unknown COMPREHENSIVE METABOLIC 89987 ALK PHOS 130 U/L 2019 Unknown [facility] 46503 SODIUM 136 mmol/L 09/29 Unknown COMPREHENS[facility] METABOLIC 95308 CREATININE 0.92 mg/dL 09/11 Unknown [facility] 91443 CALCIUM 9.1 mg/dL 2019 Unknown [facility] 04449 POTASSIUM 4.4 mmol/L 09/29 Unknown [facility] MET[facility] 43394 Total Protein 6.2 g/dL Unknown [facility] 20086 Glucose 391 mg/dL 2019 Unknown [facility] 88448 Bicarbonate 30 mmol/L 09/11 Unknown COMPREHENSIVE METABOLIC 48932 AGAP 9 mmol/L 2019 Unknown MEAN GLUC 6453486 Calc Mean Gluc 332 mg/dL 09/29/2019 Unkn own COMPLETE BLOOD COUNT [id number] WBC 7.0 10e9/L 09/29/19 Unknown COMPLETE BLOOD COUNT [id number] RBC 4.69 10e12/L 2019 Unknown COMPLETE BLOOD COUNT 3430498 HEMOGLOBIN 14.6 g/dL 09/29/19 Unknown COMPLETE BLOOD COUNT 9073410 HEMATOCRIT 45.2 % 09/29/19 Unknown COMPLETE BLOOD COUNT 6462861 MCV 96.4 fL 0 Unknown COMPLETE BLOOD COUNT 4862521 MCH 31.1 pg 0 Unknown COMPLETE BLOOD COUNT 2939143 MCHC 32.3 g/dL 0 Unknown COMPLETE BLOOD COUNT 3241201 PLATELET COUNT 209 10e9/L Unknown COMPLETE BLOOD COUNT 8250095 Mean Plt Volume 9.8 fL Unknown COMPLETE BLOOD COUNT 0968601 Neut Auto 48.1 % 0 Unknown COMPLETE BLOOD COUNT 4802974 Lymph Auto 36.5 % 09/29/19 20 Unknown COMPLETE BLOOD COUNT 1675680 Lea Auto 8.6 % 0 Unknown COMPLETE BLOOD COUNT 7213782 RDW 13.4 % 0 Unknown COMPLETE BLOOD COUNT 6168760 Eos Auto 6.5 % 0 Unknown COMPLETE BLOOD COUNT 9576047 Baso Auto 0.3 % 0 Unknown COMPLETE BLOOD COUNT 6365069 Neutrophil Abs 3.37 10e9/L Unknown COMPLETE BLOOD COUNT 3908121 Lymphocyte Abs 2.56 10e9/L Unknown COMPLETE BLOOD COUNT [id number] Monocyte Abs 0.60 10e9/L 09/11 Unknown COMPLETE BLOOD COUNT 0880503 Eosinophil Abs 0.46 10e9/L Unknown COMPLETE BLOOD COUNT 1147804 RDW-SD 45.9 fL 0 Unknown COMPLETE BLOOD COUNT 1457309 Basophil Abs 0.02 10e9/L 09/11 Unknown LIPID GROUP 59010 Cholesterol 248 mg/dL 09/29/2019 Unkno wn LIPID GROUP 92437 Triglyceride 898 mg/dL 09/29/2019 Unkn own LIPID GROUP 12796 HDL CHOLESTEROL 41 mg/dL 09/29/2019 U nknown LIPID GROUP 00019 Chol/HDL Ratio 6.05 ratio 09/29/2019 U nknown LIPID GROUP 10612 NON-HDL Chol 207 mg/dL 09/29/2019 Unkn own LIPID GROUP 01483 LDL Cholesterol N/A Trig >400 020 Unknown GLYCOSYLATED HEMOGLOBIN TEST 78172 Hgb A1c 46202-9 13.2 % 0 09/29/2019 Unknown FREE T4 57382 T4 Free 0.75 ng/dL 09/29/2019 Unknown GFR CALC 1580468 GFR Non Afr Amr >60 mL/min 09/29/2019 Un known GFR CALC 9649853 GFR Afr Amr >60 mL/min 09/29/2019 Unknow n THYROID STIMULATING HORMONE 18457 TSH 4.245 uIU/mL 09/29/2019 Unknown COMPLETE BLOOD COUNT 0212724 WBC 10.7 10e9/L 018 Unknown COMPLETE BLOOD COUNT 5972557 RBC 4.59 10e12/L 2017 Unknown COMPLETE BLOOD COUNT 3995287 HEMOGLOBIN 14.8 g/dL 12/11/19 18 Unknown COMPLETE BLOOD COUNT 9496311 HEMATOCRIT 44.9 % 12/11/19 18 Unknown COMPLETE BLOOD COUNT 3067475 MCV 97.8 fL 8 Unknown COMPLETE BLOOD COUNT 6139646 MCH 32.2 pg 8 Unknown COMPLETE BLOOD COUNT 4591192 MCHC 33.0 g/dL 8 Unknown COMPLETE BLOOD COUNT 5880730 PLATELET COUNT 261 10e9/L 10/2017 Unknown COMPLETE BLOOD COUNT 0024023 Mean Plt Volume 9.5 fL 10/2017 Unknown COMPLETE BLOOD COUNT 0730867 Neut Auto 59.9 % 8 Unknown COMPLETE BLOOD COUNT 7507431 Lymph Auto 27.4 % 12/11/19 18 Unknown COMPLETE BLOOD COUNT 5357827 Lea Auto 8.2 % 8 Unknown COMPLETE BLOOD COUNT 9252571 RDW 13.3 % 8 Unknown COMPLETE BLOOD COUNT 3301813 Eos Auto 4.1 % 8 Unknown COMPLETE BLOOD COUNT 8605398 Baso Auto 0.4 % 8 Unknown COMPLETE BLOOD COUNT 0227452 Neutrophil Abs 6.41 10e9/L Unknown COMPLETE BLOOD COUNT 4229768 Lymphocyte Abs 2.93 10e9/L Unknown COMPLETE BLOOD COUNT 8658360 Monocyte Abs 0.88 10e9/L 10/2017 Unknown COMPLETE BLOOD COUNT 8232806 Eosinophil Abs 0.44 10e9/L Unknown COMPLETE BLOOD COUNT 2326895 Basophil Abs 0.04 10e9/L 10/2017 Unknown COMPLETE BLOOD COUNT 6308241 RDW-SD 46.2 fL 8 Unknown THYROID STIMULATING HORMONE 66804 TSH 4.015 uIU/mL 12/10/2017 Unknown COMPREHENSIVE METABOLIC 49069 AST 25 U/L 2017 Unknown COMPREHENSIVE METABOLIC 09718 ALT 17 U/L 2017 Unknown COMPREHENSIVE METABOLIC 22293 BUN 19 mg/dL 2017 Unknown COMPREHENSIVE METABOLIC 45808 ALBUMIN 4.0 g/dL 2017 Unknown COMPREHENSIVE METABOLIC 40789 CHLORIDE 91 mmol/L 2017 Unknown COMPREHENSIVE METABOLIC 85574 Bili Total 0.5 mg/dL 12/10 Unknown COMPREHENSIVE METABOLIC 96003 ALK PHOS 75 U/L 2017 Unknown COMPREHENSIVE METABOLIC 10292 SODIUM 136 mmol/L 12/10 Unknown COMPREHENSIVE METABOLIC 33875 CREATININE 1.05 mg/dL 10/2017 Unknown COMPREHENSIVE METABOLIC 46330 CALCIUM 8.9 mg/dL 2017 Unknown COMPREHENSIVE METABOLIC 78705 POTASSIUM 3.4 mmol/L 12/10 Unknown COMPREHENSIVE METABOLIC 20156 Total Protein 6.5 g/dL Unknown COMPREHENSIVE METABOLIC 80323 Glucose 138 mg/dL 2017 Unknown COMPREHENSIVE METABOLIC 28148 Bicarbonate 35 mmol/L 10/2017 Unknown COMPREHENSIVE METABOLIC 66948 AGAP 10 mmol/L 2017 Unknown MEAN GLUC 9994029 Calc Mean Gluc 171 mg/dL 12/10/2017 Unkn own LIPID GROUP 48278 Cholesterol 204 mg/dL 12/10/2017 Unkno wn LIPID GROUP 65281 Triglyceride 411 mg/dL 12/10/2017 Unkn own LIPID GROUP 46358 HDL CHOLESTEROL 50 mg/dL 12/10/2017 U nknown LIPID GROUP 62961 Chol/HDL Ratio 4.08 ratio 12/10/2017 U nknown LIPID GROUP 31641 NON-HDL Chol 154 mg/dL 12/10/2017 Unkn own LIPID GROUP 70406 LDL Cholesterol N/A Trig >400 018 Unknown GLYCOSYLATED HEMOGLOBIN TEST 74934 Hgb A1c 98810-7 7.6 % 0 12/10/2017 Unknown FREE T4 71565 T4 Free 1.40 ng/dL 12/10/2017 Unknown GFR CALC 2171832 GFR Afr Amr >60 mL/min 12/10/2017 Unknow n GFR CALC 7076920 GFR Non Afr Amr 55 mL/min 12/10/2017 Unk nown GFR CALC 3343031 GFR Afr Amr 59 mL/min 06/28/2017 Unknown GFR CALC 8404068 GFR Non Afr Amr 48 mL/min 06/28/2017 Unk nown COMPREHENSIVE METABOLIC 04337 AST 32 U/L 2016 Unknown COMPREHENSIVE METABOLIC 03144 ALT 22 U/L 2016 Unknown COMPREHENSIVE METABOLIC 39497 BUN 23 mg/dL 2016 Unknown COMPREHENSIVE METABOLIC 91413 ALBUMIN 4.7 g/dL 2016 Unknown COMPREHENSIVE METABOLIC 83593 CHLORIDE 89 mmol/L 2016 Unknown COMPREHENSIVE METABOLIC 05014 Bili Total 0.5 mg/dL 06/28 Unknown COMPREHENSIVE METABOLIC 70467 ALK PHOS 90 U/L 2016 Unknown COMPREHENSIVE METABOLIC 35490 SODIUM 135 mmol/L 06/28 Unknown COMPREHENSIVE METABOLIC 90776 CREATININE 1.18 mg/dL 06/10 Unknown COMPREHENSIVE METABOLIC 61532 CALCIUM 9.7 mg/dL 2016 Unknown COMPREHENSIVE METABOLIC 06018 POTASSIUM 3.5 mmol/L 06/28 Unknown COMPREHENSIVE METABOLIC 16255 Total Protein 7.7 g/dL Unknown [facility]PRE[facility] METABOLIC 49619 Glucose 129 mg/dL 2016 Unknown COMPREHENSIVE METABOLIC 76965 Bicarbonate 34 mmol/L 06/10 Unknown COMPREHENSIVE METABOLIC 05089 AGAP 12 mmol/L 2016 Unknown LIP[facility] GROUP 22663 HDL TEST 64 MG/DL 08/27/2014 Unknown L[facility] GROUP 42944 TRIG 222 MG/DL 08/27/2014 Unknown L[facility] GROUP 70166 TEST LDL 209 MG/DL 08/27/2014 Unknown LIP[facility] GROUP 03071 CHOL 317 MG/DL 08/27/2014 Unknown [facility] GROUP 56594 RCHOL/HDL 4.95 RATIO 08/27/2014 Unknow n LIPID GROUP 04860 NON-HDL CH 253 MG/DL 08/27/2014 Unknow n GFR CALC 3391646 GFR AA >60 ML/MIN 08/27/2014 Unknown GFR CALC 8746479 GFR NON-AA >60 ML/MIN 08/27/2014 Unknown COMPLETE BLOOD COUNT 6432525 WBC 7.0 10e9/L 08/27/20 14 Unknown COMPLETE BLOOD COUNT 3174879 RBC 4.98 10e12/L 2013 Unknown COMPLETE BLOOD COUNT 2452505 HGB 15.6 g/dL 4 Unknown COMPLETE BLOOD COUNT 0080277 HCT DET 46.5 % 4 Unknown COMPLETE BLOOD COUNT 7042271 MCV 93.4 fL 4 Unknown COMPLETE BLOOD COUNT 3420837 MCH 31.3 pg 4 Unknown COMPLETE BLOOD COUNT 0131920 MCHC 33.5 g/dL 4 Unknown COMPLETE BLOOD COUNT 3488891 PLT 309 10e9/L 08/27/20 14 Unknown COMPLETE BLOOD COUNT 0846283 MPV 9.6 fL 4 Unknown COMPLETE BLOOD COUNT 0542724 CADEN % 57.2 % 4 Unknown COMPLETE BLOOD COUNT 4863213 LY % 33.2 % 4 Unknown COMPLETE BLOOD COUNT 5173998 MON % 7.3 % 4 Unknown COMPLETE BLOOD COUNT 9896439 EOS % 2.0 % 4 Unknown COMPLETE BLOOD COUNT 5809619 BASO % 0.3 % 4 Unknown COMPLETE BLOOD COUNT 3666181 RDW 13.7 % 4 Unknown COMPLETE BLOOD COUNT 8250698 ABS CADEN 4.00 10e9/L 014 Unknown COMPLETE BLOOD COUNT 1322940 ABS LYMPH 2.32 10e9/L 014 Unknown COMPLETE BLOOD COUNT 1003416 ABS MONO 0.51 10e9/L 014 Unknown COMPLETE BLOOD COUNT 5367640 ABS EOS 0.14 10e9/L 014 Unknown COMPLETE BLOOD COUNT 3711178 ABS BASO 0.02 10e9/L 014 Unknown COMPLETE BLOOD COUNT 1709846 RDW-SD 45.1 fL 4 Unknown COMPREHENSIVE METABOLIC 32884 AST 13 U/L 2013 Unknown COMPREHENSIVE METABOLIC 69080 ALT 11 IU/L 2013 Unknown COMPREHENSIVE METABOLIC 97206 BUN 23 MG/DL 2013 Unknown COMPREHENSIVE METABOLIC 41141 ALBUMIN 4.4 GM/DL 2013 Unknown COMPREHENSIVE METABOLIC 10132 CHLORIDE 99 MMOL/L 2013 Unknown COMPREHENSIVE METABOLIC 70464 BILI TOT 0.5 MG/DL 2013 Unknown COMPREHENSIVE METABOLIC 76438 ALK PHOS 56 U/L 2013 Unknown COMPREHENSIVE METABOLIC 77361 SODIUM 138 MMOL/L 08/27 Unknown COMPREHENSIVE METABOLIC 97620 CREATININE 0.95 MG/DL 08/10 Unknown COMPREHENSIVE METABOLIC 88864 CALCIUM 9.8 MG/DL 2013 Unknown COMPREHENSIVE METABOLIC 84119 POTASSIUM 3.5 MMOL/L 08/27 Unknown COMPREHENSIVE METABOLIC 65013 PROT TOT 6.8 GM/DL 2013 Unknown COMPREHENSIVE METABOLIC 93237 Glucose 90 MG/DL 2013 Unknown COMPREHENSIVE METABOLIC 42914 BICARB 34 MMOL/L 2013 Unknown COMPREHENSIVE METABOLIC 50250 ANION GAP 5 MEQ/L 2013 Unknown LIPASE 19104 LIPASE 11 IU/L 07/21/2014 Unknown AMYLASE 23438 AMYLASE 39 IU/L 07/21/2014 Unknown HEMOGLOBIN A1C (GLYCOSYLATED) 8330347 A1C HPLC 62131-4 6.2 % 03/05/2013 Unknown THYROID STIMULATING HORMONE 71860 TSH 6.986 uIU/ML 03/05/2013 Unknown COMPLETE BLOOD COUNT 2775946 WBC 12.7 10e9/L 013 Unknown COMPLETE BLOOD COUNT 8096331 RBC 4.53 10e12/L 2012 Unknown COMPLETE BLOOD COUNT 7696978 HGB 14.7 g/dL 3 Unknown COMPLETE BLOOD COUNT 7709042 HCT DET 43.1 % 3 Unknown COMPLETE BLOOD COUNT 7662649 MCV 95.1 fL 3 Unknown COMPLETE BLOOD COUNT 8938247 MCH 32.5 pg 3 Unknown COMPLETE BLOOD COUNT 5136846 MCHC 34.1 g/dL 3 Unknown COMPLETE BLOOD COUNT 8207680 PLT 346 10e9/L 03/05/20 13 Unknown COMPLETE BLOOD COUNT 1102335 MPV 9.5 fL 3 Unknown COMPLETE BLOOD COUNT 1339296 CADEN % 67.6 % 3 Unknown COMPLETE BLOOD COUNT 7536145 LY % 22.1 % 3 Unknown COMPLETE BLOOD COUNT 6440021 MON % 6.6 % 3 Unknown COMPLETE BLOOD COUNT 1241974 EOS % 3.3 % 3 Unknown COMPLETE BLOOD COUNT 1140823 BASO % 0.4 % 3 Unknown COMPLETE BLOOD COUNT 0736179 RDW 14.0 % 3 Unknown COMPLETE BLOOD COUNT 3806145 ABS CADEN 8.59 10e9/L 013 Unknown COMPLETE BLOOD COUNT 0611350 ABS LYMPH 2.81 10e9/L 013 Unknown COMPLETE BLOOD COUNT 2752399 ABS MONO 0.84 10e9/L 013 Unknown COMPLETE BLOOD COUNT 0630296 ABS EOS 0.42 10e9/L 013 Unknown COMPLETE BLOOD COUNT 3459786 ABS BASO 0.05 10e9/L 013 Unknown COMPLETE BLOOD COUNT 2939603 RDW-SD 46.0 fL 201 3 Unknown FREE T4 51580 FREE T4 1.14 NG/DL 03/05/2013 Unknown COMPREHENSIVE METABOLIC 07013 AST 17 U/L 2012 Unknown COMPREHENSIVE METABOLIC 31084 ALT 12 IU/L 2012 Unknown COMPREHENSIVE METABOLIC 00370 BUN 24 MG/DL 2012 Unknown COMPREHENSIVE METABOLIC 54664 ALBUMIN 4.2 GM/DL 2012 Unknown COMPREHENSIVE METABOLIC 35801 CHLORIDE 93 MMOL/L 2012 Unknown COMPREHENSIVE METABOLIC 21154 BILI TOT 0.5 MG/DL 2012 Unknown COMPREHENSIVE METABOLIC 70831 ALK PHOS 75 U/L 2012 Unknown COMPREHENSIVE METABOLIC 34667 SODIUM 141 MMOL/L 03/05 Unknown COMPREHENSIVE METABOLIC 08583 CREATININE 1.36 MG/DL 02/09 Unknown COMPREHENSIVE METABOLIC 72513 CALCIUM 9.2 MG/DL 2012 Unknown COMPREHENSIVE METABOLIC 98613 POTASSIUM 3.1 MMOL/L 03/05 Unknown COMPREHENSIVE METABOLIC 94620 PROT TOT 6.9 GM/DL 2012 Unknown COMPREHENSIVE METABOLIC 77535 Glucose 123 MG/DL 2012 Unknown COMPREHENSIVE METABOLIC 94309 BICARB 36 MMOL/L 2012 Unknown COMPREHENSIVE METABOLIC 66988 ANION GAP 12 MEQ/L 2012 Unknown GFR CALC 5605285 GFR AA 51.0L ML/MIN 03/05/2013 Unknow n GFR CALC 9614104 GFR NON-AA 42.0L ML/MIN 03/05/2013 Unkno wn COMPREHENSIVE METABOLIC 62381 AST 14 U/L 2012 Unknown COMPREHENSIVE METABOLIC 70070 ALT 11 IU/L 2012 Unknown COMPREHENSIVE METABOLIC 94412 BUN 16 MG/DL 2012 Unknown COMPREHENSIVE METABOLIC 74222 ALBUMIN 4.2 GM/DL 2012 Unknown COMPREHENSIVE METABOLIC 94163 CHLORIDE 98 MMOL/L 2012 Unknown COMPREHENSIVE METABOLIC 95575 BILI TOT 0.4 MG/DL 2012 Unknown COMPREHENSIVE METABOLIC 03403 ALK PHOS 77 U/L 2012 Unknown COMPREHENSIVE METABOLIC 68826 SODIUM 139 MMOL/L 09/25 Unknown COMPREHENSIVE METABOLIC 56496 CREATININE 0.86 MG/DL 09/10 Unknown COMPREHENSIVE METABOLIC 44564 CALCIUM 9.5 MG/DL 2012 Unknown COMPREHENSIVE METABOLIC 49852 POTASSIUM 3.8 MMOL/L 09/25 Unknown COMPREHENSIVE METABOLIC 24931 PROT TOT 6.8 GM/DL 2012 Unknown COMPREHENSIVE METABOLIC 65598 Glucose 91 MG/DL 2012 Unknown COMPREHENSIVE METABOLIC 05559 BICARB 32 MMOL/L 2012 Unknown COMPREHENSIVE METABOLIC 94491 ANION GAP 9 MEQ/L 2012 Unknown FREE T4 11805 FREE T4 0.98 NG/DL 09/25/2012 Unknown THYROID STIMULATING HORMONE 40588 TSH 1.736 uIU/ML 09/25/2012 Unknown C-REACTIVE PROTEIN (CRP) QUANT 30694 CRP 2.3 MG/DL 09/25/2012 Unknown COMPLETE BLOOD COUNT 3575950 WBC 11.9 10e9/L 013 Unknown COMPLETE BLOOD COUNT 0687013 RBC 4.87 10e12/L 2012 Unknown COMPLETE BLOOD COUNT 6746440 HGB 15.1 g/dL 3 Unknown COMPLETE BLOOD COUNT 6351772 HCT DET 44.8 % 3 Unknown COMPLETE BLOOD COUNT 1913396 MCV 92.0 fL 3 Unknown COMPLETE BLOOD COUNT 5374698 MCH 31.0 pg 3 Unknown COMPLETE BLOOD COUNT 3962793 MCHC 33.7 g/dL 3 Unknown COMPLETE BLOOD COUNT 5513028 PLT 343 10e9/L 09/25/19 13 Unknown COMPLETE BLOOD COUNT 9510279 MPV 9.0 fL 3 Unknown COMPLETE BLOOD COUNT 8894242 CADEN % 68.2 % 3 Unknown COMPLETE BLOOD COUNT 8806455 LY % 22.4 % 3 Unknown COMPLETE BLOOD COUNT 4308687 MON % 6.4 % 3 Unknown COMPLETE BLOOD COUNT 3090425 EOS % 2.7 % 3 Unknown COMPLETE BLOOD COUNT 1581345 BASO % 0.3 % 3 Unknown COMPLETE BLOOD COUNT 6436735 RDW 13.8 % 3 Unknown COMPLETE BLOOD COUNT 2685565 ABS CADEN 8.12 10e9/L 013 Unknown COMPLETE BLOOD COUNT 7733721 ABS LYMPH 2.67 10e9/L 013 Unknown COMPLETE BLOOD COUNT 0632628 ABS MONO 0.76 10e9/L 013 Unknown COMPLETE BLOOD COUNT 0083344 ABS EOS 0.32 10e9/L 013 Unknown COMPLETE BLOOD COUNT 5869912 ABS BASO 0.04 10e9/L 013 Unknown COMPLETE BLOOD COUNT 3227207 RDW-SD 45.6 fL 3 Unknown GFR CALC 6814566 GFR AA >60 ML/MIN 09/25/2012 Unknown GFR CALC 3808760 GFR NON-AA >60 ML/MIN 09/25/2012 Unknown ERYTHROCYTE SEDIMENTATION RATE 80217 ESR 19 MM/HR 05/06/2012 Unknown VITAMIN B 12 FOLIC ACID 59985|33495 VIT B 12 922 PG/ML 04/11 Unknown VITAMIN B 12 FOLIC ACID 29166|67629 FOLIC ACID 13.6 NG/ML Unknown URIC ACID 79305 URIC ACID 7.8 MG/DL 05/06/2012 Unknown COMPLETE BLOOD COUNT 29196 WBC 11.9 10e9/L 012 Unknown COMPLETE BLOOD COUNT 79792 RBC 5.30 10e12/L 2011 Unknown COMPLETE BLOOD COUNT 17404 HGB 16.6 g/dL 2 Unknown COMPLETE BLOOD COUNT 49454 HCT DET 47.2 % 2 Unknown COMPLETE BLOOD COUNT 65841 MCV 89.1 fL 2 Unknown COMPLETE BLOOD COUNT 81482 MCH 31.3 pg 2 Unknown COMPLETE BLOOD COUNT 26098 MCHC 35.2 g/dL 2 Unknown COMPLETE BLOOD COUNT 12171 PLT 362 10e9/L 05/06/20 12 Unknown COMPLETE BLOOD COUNT 78529 MPV 9.4 fL 2 Unknown COMPLETE BLOOD COUNT 29054 CADEN % 68.2 % 2 Unknown COMPLETE BLOOD COUNT 33961 LY % 22.0 % 2 Unknown COMPLETE BLOOD COUNT 87151 MON % 6.9 % 2 Unknown COMPLETE BLOOD COUNT 45376 EOS % 2.6 % 2 Unknown COMPLETE BLOOD COUNT 77514 BASO % 0.3 % 2 Unknown COMPLETE BLOOD COUNT 47185 RDW 12.8 % 2 Unknown COMPLETE BLOOD COUNT 96243 ABS CADEN 8.12 10e9/L 012 Unknown COMPLETE BLOOD COUNT 80791 ABS LYMPH 2.62 10e9/L 012 Unknown COMPLETE BLOOD COUNT 12494 ABS MONO 0.82 10e9/L 012 Unknown COMPLETE BLOOD COUNT 45081 ABS EOS 0.31 10e9/L 012 Unknown COMPLETE BLOOD COUNT 72236 ABS BASO 0.04 10e9/L 012 Unknown COMPLETE BLOOD COUNT 32305 RDW-SD 41.5 fL 2 Unknown GFR CALC 6166404 GFR AA >60 ML/MIN 05/06/2012 Unknown GFR CALC 8212791 GFR NON-AA 58.0L ML/MIN 05/06/2012 Unkno wn FREE T4 04419 FREE T4 1.15 NG/DL 05/06/2012 Unknown THYROID STIMULATING HORMONE 02131 TSH 1.568 uIU/ML 05/06/2012 Unknown COMPREHENSIVE METABOLIC 54296 AST 20 U/L 2011 Unknown COMPREHENSIVE METABOLIC 15859 ALT 12 IU/L 2011 Unknown COMPREHENSIVE METABOLIC 38309 BUN 20 MG/DL 2011 Unknown COMPREHENSIVE METABOLIC 98585 ALBUMIN 4.5 GM/DL 2011 Unknown COMPREHENSIVE METABOLIC 05092 CHLORIDE 91 MMOL/L 2011 Unknown COMPREHENSIVE METABOLIC 36325 BILI TOT 0.4 MG/DL 2011 Unknown COMPREHENSIVE METABOLIC 67258 ALK PHOS 73 U/L 2011 Unknown COMPREHENSIVE METABOLIC 20080 SODIUM 139 MMOL/L 05/06 Unknown COMPREHENSIVE METABOLIC 70188 CREATININE 1.02 MG/DL 04/11 Unknown COMPREHENSIVE METABOLIC 52554 CALCIUM 9.7 MG/DL 2011 Unknown COMPREHENSIVE METABOLIC 16633 POTASSIUM 3.1 MMOL/L 05/06 Unknown COMPREHENSIVE METABOLIC 53133 PROT TOT 7.3 GM/DL 2011 Unknown COMPREHENSIVE METABOLIC 96507 Glucose 118 MG/DL 2011 Unknown COMPREHENSIVE METABOLIC 73798 BICARB 33 MMOL/L 2011 Unknown COMPREHENSIVE METABOLIC 51480 ANION GAP 15 MEQ/L 2011 Unknown Procedures Procedure Codes Date ROUTINE VENIPUNCTURE CPT-4: 50527 09/29/2019 URINALYSIS NONAUTO W/O SCOPE CPT-4: 06199 09/29/2019 COMPREHEN METABOLIC PANEL CPT-4: 18132 09/29/2019 LIPID PANEL CPT-4: 05713 09/29/2019 A1C HPLC CPT-4: 50521 09/29/2019 ASSAY OF FREE THYROXINE CPT-4: 22671 09/29/2019 ASSAY THYROID STIM HORMONE CPT-4: 01604 09/29/2019 COMPLETE CBC W/AUTO DIFF WBC CPT-4: 76089 09/29/2019 URINALYSIS NONAUTO W/O SCOPE CPT-4: 75744 09/30/2018 MICROALBUMIN QUANTITATIVE CPT-4: 56143 09/30/2018 CEFTRIAXONE SODIUM INJECTION CPT-4: J0696 06/19/2018 THER/PROPH/DIAG INJ SC/IM CPT-4: 62738 06/19/2018 CEFTRIAXONE SODIUM INJECTION CPT-4: J0696 06/17/2018 THER/PROPH/DIAG INJ SC/IM CPT-4: 08888 06/17/2018 THER/PROPH/DIAG INJ SC/IM CPT-4: 51348 05/16/2018 KETOROLAC TROMETHAMINE INJ CPT-4: J1885 05/16/2018 ONDANSETRON HCL INJECTION CPT-4: J2405 05/16/2018 THER/PROPH/DIAG INJ SC/IM CPT-4: 47956 05/16/2018 ROUTINE VENIPUNCTURE CPT-4: 65731 03/20/2018 COMPREHEN METABOLIC PANEL CPT-4: 06334 03/20/2018 DEXAMETHASONE SODIUM PHOS CPT-4: J1100 02/11/2018 THER/PROPH/DIAG INJ SC/IM CPT-4: 02353 02/11/2018 TRIAMCINOLONE ACET INJ NOS CPT-4: J3301 02/11/2018 CEFTRIAXONE SODIUM INJECTION CPT-4: J0696 02/01/2018 THER/PROPH/DIAG INJ SC/IM CPT-4: 49752 02/01/2018 CEFTRIAXONE SODIUM INJECTION CPT-4: J0696 01/30/2018 THER/PROPH/DIAG INJ SC/IM CPT-4: 78870 01/30/2018 ROUTINE VENIPUNCTURE CPT-4: 25463 12/10/2017 ASSAY OF FREE THYROXINE CPT-4: 79701 12/10/2017 ASSAY THYROID STIM HORMONE CPT-4: 54088 12/10/2017 COMPREHEN METABOLIC PANEL CPT-4: 75914 12/10/2017 COMPLETE CBC W/AUTO DIFF WBC CPT-4: 77220 12/10/2017 LIPID PANEL CPT-4: 28146 12/10/2017 A1C HPLC CPT-4: 39157 12/10/2017 CEFTRIAXONE SODIUM INJECTION CPT-4: J0696 12/10/2017 THER/PROPH/DIAG INJ SC/IM CPT-4: 68732 12/10/2017 CEFTRIAXONE SODIUM INJECTION CPT-4: J0696 12/07/2017 THER/PROPH/DIAG INJ SC/IM CPT-4: 09595 12/07/2017 DEXAMETHASONE SODIUM PHOS CPT-4: J1100 12/07/2017 THER/PROPH/DIAG INJ SC/IM CPT-4: 15462 12/07/2017 CEFTRIAXONE SODIUM INJECTION CPT-4: J0696 10/08/2017 THER/PROPH/DIAG INJ SC/IM CPT-4: 71112 10/08/2017 CEFTRIAXONE SODIUM INJECTION CPT-4: J0696 09/21/2017 THER/PROPH/DIAG INJ SC/IM CPT-4: 30138 09/21/2017 CEFTRIAXONE SODIUM INJECTION CPT-4: J0696 09/20/2017 THER/PROPH/DIAG INJ SC/IM CPT-4: 07562 09/20/2017 REMOVAL OF NAIL PLATE CPT-4: 31486 08/29/2017 THER/PROPH/DIAG INJ SC/IM CPT-4: 73289 08/29/2017 TRIAMCINOLONE ACET INJ NOS CPT-4: J3301 08/29/2017 CEFTRIAXONE SODIUM INJECTION CPT-4: J0696 08/29/2017 THER/PROPH/DIAG INJ SC/IM CPT-4: 07235 08/29/2017 DESTRUCT PREMALG LESION (Cryosurgery) CPT-4: 35240 ROUTINE VENIPUNCTURE CPT-4: 79143 06/27/2017 ASSAY OF FREE THYROXINE CPT-4: 08252 06/27/2017 ASSAY THYROID STIM HORMONE CPT-4: 87240 06/27/2017 COMPREHEN METABOLIC PANEL CPT-4: 13441 06/27/2017 COMPLETE CBC W/AUTO DIFF WBC CPT-4: 73554 06/27/2017 EXC TR-EXT B9+REECE 0.5 CM< CPT-4: 70873 01/24/2017 THER/PROPH/DIAG INJ SC/IM CPT-4: 63343 08/02/2016 DEXAMETHASONE SODIUM PHOS CPT-4: J1100 08/02/2016 DESTRUCT PREMALG LESION (Cryosurgery) CPT-4: 83760 EXC TR-EXT B9+REECE 0.5 CM< CPT-4: 54349 08/01/2016 AEROBIC WOUND CULTURE & STN CPT-4: 63752 07/06/2016 CEFTRIAXONE SODIUM INJECTION CPT-4: J0696 05/25/2016 THER/PROPH/DIAG INJ SC/IM CPT-4: 51964 05/25/2016 THER/PROPH/DIAG INJ SC/IM CPT-4: 12517 04/26/2016 DEXAMETHASONE SODIUM PHOS CPT-4: J1100 04/26/2016 CEFTRIAXONE SODIUM INJECTION CPT-4: J0696 04/26/2016 THER/PROPH/DIAG INJ SC/IM CPT-4: 51793 04/26/2016 THER/PROPH/DIAG INJ SC/IM CPT-4: 68916 02/09/2016 TRIAMCINOLONE ACET INJ NOS CPT-4: J3301 02/09/2016 URINALYSIS NONAUTO W/O SCOPE CPT-4: 11309 01/24/2016 URINE CULTURE/ COLONY COUNT CPT-4: 97192 01/24/2016 THER/PROPH/DIAG INJ SC/IM CPT-4: 43324 12/08/2015 TRIAMCINOLONE ACET INJ NOS CPT-4: J3301 12/08/2015 THER/PROPH/DIAG INJ SC/IM CPT-4: 05581 10/07/2015 TRIAMCINOLONE ACET INJ NOS CPT-4: J3301 10/07/2015 DESTRUCT PREMALG LESION (Cryosurgery) CPT-4: 81865 THER/PROPH/DIAG INJ SC/IM CPT-4: 23151 03/16/2015 METHYLPREDNISOLONE 40 MG INJ CPT-4: J1030 03/16/2015 DESTRUCT PREMALG LESION (Cryosurgery) CPT-4: 90830 THER/PROPH/DIAG INJ SC/IM CPT-4: 32860 09/11/2014 METHYLPREDNISOLONE 40 MG INJ CPT-4: J1030 09/11/2014 TRIAMCINOLONE ACET INJ NOS CPT-4: J3301 09/11/2014 CEFTRIAXONE SODIUM INJECTION CPT-4: J0696 09/11/2014 THER/PROPH/DIAG INJ SC/IM CPT-4: 20329 09/11/2014 ROUTINE VENIPUNCTURE CPT-4: 42410 08/27/2014 COMPREHEN METABOLIC PANEL CPT-4: 18620 08/27/2014 COMPLETE CBC W/AUTO DIFF WBC CPT-4: 86861 08/27/2014 LIPID PANEL CPT-4: 32458 08/27/2014 ROUTINE VENIPUNCTURE CPT-4: 16038 07/21/2014 ASSAY OF AMYLASE CPT-4: 28361 07/21/2014 ASSAY OF LIPASE CPT-4: 45791 07/21/2014 THER/PROPH/DIAG INJ SC/IM CPT-4: 31364 07/15/2014 TRIAMCINOLONE ACET INJ NOS CPT-4: J3301 07/15/2014 ROUTINE VENIPUNCTURE CPT-4: 04555 05/14/2014 ASSAY OF FREE THYROXINE CPT-4: 73009 05/14/2014 ASSAY THYROID STIM HORMONE CPT-4: 32332 05/14/2014 COMPREHEN METABOLIC PANEL CPT-4: 64112 05/14/2014 COMPLETE CBC W/AUTO DIFF WBC CPT-4: 00071 05/14/2014 LIPID PANEL CPT-4: 39179 05/14/2014 CEFTRIAXONE SODIUM INJECTION CPT-4: J0696 04/21/2014 THER/PROPH/DIAG INJ SC/IM CPT-4: 09646 04/21/2014 THER/PROPH/DIAG INJ SC/IM CPT-4: 91585 04/21/2014 TRIAMCINOLONE ACET INJ NOS CPT-4: J3301 04/21/2014 THER/PROPH/DIAG INJ SC/IM CPT-4: 93136 03/04/2014 METHYLPREDNISOLONE 40 MG INJ CPT-4: J1030 03/04/2014 TRIAMCINOLONE ACET INJ NOS CPT-4: J3301 03/04/2014 CEFTRIAXONE SODIUM INJECTION CPT-4: J0696 03/04/2014 THER/PROPH/DIAG INJ SC/IM CPT-4: 42190 03/04/2014 TDAP VACCINE 7 YRS/> IM CPT-4: 98207 02/27/2014 IMMUNIZATION ADMIN CPT-4: 80727 02/27/2014 DESTRUCT PREMALG LESION (Cryosurgery) CPT-4: 25425 DESTRUCT PREMALG LES 2-14 CPT-4: 05974 01/13/2014 THER/PROPH/DIAG INJ SC/IM CPT-4: 89735 10/21/2013 METHYLPREDNISOLONE 40 MG INJ CPT-4: J1030 10/21/2013 TRIAMCINOLONE ACET INJ NOS CPT-4: J3301 10/21/2013 CEFTRIAXONE SODIUM INJECTION CPT-4: J0696 08/27/2013 THER/PROPH/DIAG INJ SC/IM CPT-4: 62162 08/27/2013 THER/PROPH/DIAG INJ SC/IM CPT-4: 29731 08/27/2013 METHYLPREDNISOLONE 40 MG INJ CPT-4: J1030 08/27/2013 TRIAMCINOLONE ACET INJ NOS CPT-4: J3301 08/27/2013 THER/PROPH/DIAG INJ SC/IM CPT-4: 15660 06/23/2013 METHYLPREDNISOLONE 40 MG INJ CPT-4: J1030 06/23/2013 TRIAMCINOLONE ACET INJ NOS CPT-4: J3301 06/23/2013 THER/PROPH/DIAG INJ SC/IM CPT-4: 48675 05/26/2013 METHYLPREDNISOLONE 40 MG INJ CPT-4: J1030 05/26/2013 TRIAMCINOLONE ACET INJ NOS CPT-4: J3301 05/26/2013 ROUTINE VENIPUNCTURE CPT-4: 38627 03/05/2013 ASSAY OF FREE THYROXINE CPT-4: 40026 03/05/2013 ASSAY THYROID STIM HORMONE CPT-4: 34840 03/05/2013 COMPREHEN METABOLIC PANEL CPT-4: 23308 03/05/2013 COMPLETE CBC W/AUTO DIFF WBC CPT-4: 53798 03/05/2013 A1C GLYCOSYLATED HEMOGLOBIN TEST CPT-4: 86143 013 DRAIN/INJECT JOINT/BURSA CPT-4: 12205 12/04/2012 METHYLPREDNISOLONE 40 MG INJ CPT-4: J1030 12/04/2012 TRIAMCINOLONE ACET INJ NOS CPT-4: J3301 12/04/2012 CEFTRIAXONE SODIUM INJECTION CPT-4: J0696 11/21/2012 THER/PROPH/DIAG INJ SC/IM CPT-4: 78692 11/21/2012 THER/PROPH/DIAG INJ SC/IM CPT-4: 62200 10/14/2012 METHYLPREDNISOLONE 40 MG INJ CPT-4: J1030 10/14/2012 TRIAMCINOLONE ACET INJ NOS CPT-4: J3301 10/14/2012 URINALYSIS NONAUTO W/O SCOPE CPT-4: 79587 09/27/2012 ROUTINE VENIPUNCTURE CPT-4: 92103 09/25/2012 ASSAY OF FREE THYROXINE CPT-4: 52508 09/25/2012 ASSAY THYROID STIM HORMONE CPT-4: 17169 09/25/2012 COMPREHEN METABOLIC PANEL CPT-4: 86197 09/25/2012 COMPLETE CBC W/AUTO DIFF WBC CPT-4: 55233 09/25/2012 C-REACTIVE PROTEIN CPT-4: 53291 09/25/2012 THER/PROPH/DIAG INJ SC/IM CPT-4: 16871 08/29/2012 METHYLPREDNISOLONE 40 MG INJ CPT-4: J1030 08/29/2012 TRIAMCINOLONE ACET INJ NOS CPT-4: J3301 08/29/2012 DESTRUCT PREMALG LESION (Cryosurgery) CPT-4: 07584 THER/PROPH/DIAG INJ SC/IM CPT-4: 78716 05/06/2012 METHYLPREDNISOLONE 40 MG INJ CPT-4: J1030 05/06/2012 TRIAMCINOLONE ACET INJ NOS CPT-4: J3301 05/06/2012 VITAMIN B 12 FOLIC ACID CPT-4: 51066|05001 05/06/2012 RBC SED RATE AUTOMATED CPT-4: 20615 05/06/2012 ROUTINE VENIPUNCTURE CPT-4: 28246 05/06/2012 ASSAY OF FREE THYROXINE CPT-4: 37460 05/06/2012 ASSAY THYROID STIM HORMONE CPT-4: 83483 05/06/2012 COMPREHEN METABOLIC PANEL CPT-4: 99479 05/06/2012 COMPLETE CBC W/AUTO DIFF WBC CPT-4: 93380 05/06/2012 ASSAY OF BLOOD/URIC ACID CPT-4: 40014 05/06/2012 THER/PROPH/DIAG INJ SC/IM CPT-4: 03917 03/19/2012 KETOROLAC TROMETHAMINE INJ CPT-4: J1885 03/19/2012 KETOROLAC TROMETHAMINE INJ CPT-4: J1885 01/30/2012 THER/PROPH/DIAG INJ SC/IM CPT-4: 59691 01/30/2012 PROMETHAZINE HCL INJECTION CPT-4: J2550 01/30/2012 THER/PROPH/DIAG INJ SC/IM CPT-4: 60027 01/24/2012 METHYLPREDNISOLONE 40 MG INJ CPT-4: J1030 01/24/2012 TRIAMCINOLONE ACET INJ NOS CPT-4: J3301 01/24/2012 THER/PROPH/DIAG INJ SC/IM CPT-4: 87415 09/13/2011 KETOROLAC TROMETHAMINE INJ CPT-4: J1885 09/13/2011 THER/PROPH/DIAG INJ SC/IM CPT-4: 24808 09/13/2011 PROMETHAZINE HCL INJECTION CPT-4: J2550 09/13/2011 CEFTRIAXONE SODIUM INJECTION CPT-4: J0696 07/20/2011 THER/PROPH/DIAG INJ SC/IM CPT-4: 75989 07/20/2011 THER/PROPH/DIAG INJ SC/IM CPT-4: 82076 07/20/2011 METHYLPREDNISOLONE INJECTION CPT-4: J2930 07/20/2011 URINALYSIS NONAUTO W/O SCOPE CPT-4: 95199 05/09/2011 CEFTRIAXONE SODIUM INJECTION CPT-4: J0696 05/09/2011 THER/PROPH/DIAG INJ SC/IM CPT-4: 31536 05/09/2011 THER/PROPH/DIAG INJ SC/IM CPT-4: 80232 05/09/2011 PROMETHAZINE HCL INJECTION CPT-4: J2550 05/09/2011 HYDRATION IV INFUSION INIT CPT-4: 38982 05/09/2011 DESTRUCT PREMALG LESION (Cryosurgery) CPT-4: 75318 DESTRUCT PREMALG LES 2-14 CPT-4: 00898 07/19/2010 REMOVAL OF SKIN TAGS <W/15 CPT-4: 14117 05/30/2010 THER/PROPH/DIAG INJ SC/IM CPT-4: 66859 04/05/2010 CEFTRIAXONE SODIUM INJECTION CPT-4: J0696 04/05/2010 TRIAMCINOLONE ACET INJ NOS CPT-4: J3301 04/05/2010 METHYLPREDNISOLONE 40 MG INJ CPT-4: J1030 04/05/2010 THER/PROPH/DIAG INJ SC/IM CPT-4: 94908 04/05/2010 TRIAMCINOLONE ACET INJ NOS CPT-4: J3301 03/09/2010 METHYLPREDNISOLONE 40 MG INJ CPT-4: J1030 03/09/2010 THER/PROPH/DIAG INJ SC/IM CPT-4: 24675 03/09/2010 THER/PROPH/DIAG INJ SC/IM CPT-4: 84394 03/09/2010 CEFTRIAXONE SODIUM INJECTION CPT-4: J0696 03/09/2010 Vital Signs Date Vital 10/07/2019 Blood Pressure 1: 134/82 Code: 8480-6 Heart Rate 1: 105 bpm Respiratory Rate: 17 bpm SpO2: 96% Temperature: 36.8 (C) / 98.2 (F) We ight: 198 lbs 09/30/2019 Blood Pressure 1: 132/80 Code: 8480-6 BMI: 35.8 Code: 24155-1 Heart Rate 1: 88 bpm Height: 5'4" Respiratory Rate: 20 bpm SpO2: 95% Tempera ture: 36.9 (C) / 98.5 (F) Weight: 210 lbs 05/28/2019 Blood Pressure 1: 126/82 Code: 8480-6 BMI: 35.0 Code: 95725-0 Heart Rate 1: 88 bpm Height: 5'4" [...] 1: 128/90 Code: 8480-6 BMI: 37.2 Code: 76485-4 Heart Rate 1: 84 bpm Height: 5'4" Respiratory Rate: 20 bpm SpO2: 95% Tempera ture: 36.6 (C) / 97.8 (F) Weight: 217 lbs 08/27/2018 Blood Pressure 1: 128/88 Code: 8480-6 BMI: 38.3 Code: 54587-8 Heart Rate 1: 84 bpm Height: 5'4" [...] 1: 119/72 Code: 8480-6 BMI: 37.4 Code: 66675-7 Heart Rate 1: 82 bpm Height: 5'4" Respiratory Rate: 12 bpm SpO2: 94% Tempera ture: 35.2 (C) / 95.4 (F) Weight: 218 lbs 12/18/2017 Blood Pressure 1: 128/86 Code: 8480-6 BMI: 37.8 Code: 62719-8 Heart Rate 1: 84 bpm Height: 5'4" [...] 1: 128/82 Code: 8480-6 BMI: 35.5 Code: 91348-2 Heart Rate 1: 84 bpm Height: 5'4" [...] 1: 128/82 Code: 8480-6 BMI: 30.2 Code: 70462-8 Heart Rate 1: 80 bpm Height: 5'4" [...] 1: 128/86 Code: 8480-6 BMI: 32.8 Code: 78903-4 Heart Rate 1: 66 bpm Height: 5'4" Respiratory Rate: 18 bpm Temperature: 36 .3 (C) / 97.3 (F) Weight: 191 lbs 06/23/2013 Blood Pressure 1: 132/94 Code: 8480-6 BMI: 34.0 Code: 25345-0 Heart Rate 1: 84 bpm Height: 5'4" Respiratory Rate: 20 bpm Temperature: 36 .8 (C) / 98.2 (F) Weight: 198 lbs 05/26/2013 Blood Pressure 1: 114/80 Code: 8480-6 BMI: 35.0 Code: 00631-2 Heart Rate 1: 80 bpm Height: 5'4" Respiratory Rate: 20 bpm Temperature: 36 .4 (C) / 97.6 (F) Weight: 204 lbs 04/16/2013 Blood Pressure 1: 114/82 Code: 8480-6 BMI: 36.7 Code: 85491-9 Heart Rate 1: 84 bpm Height: 5'4" Respiratory Rate: 20 bpm Temperature: 36 .7 (C) / 98.0 (F) Weight: 214 lbs 03/05/2013 Blood Pressure 1: 136/90 Code: 8480-6 BMI: 37.1 Code: 28167-2 Heart Rate 1: 84 bpm Height: 5'4" [...] 1: 168/114 Code: 8480-6 BMI: 36.2 Code: 00554-0 Heart Rate 1: 104 bpm Height: 5'4" Respiratory Rate: 20 bpm Temperature: 36 .8 (C) / 98.2 (F) Weight: 211 lbs 11/22/2012 Blood Pressure 1: 128/90 Code: 8480-6 Heart Rate 1: 88 bpm Respiratory Rate: 20 bpm SpO2: 96% Temperature: 36.8 (C) / 98.2 (F) 11/21/2012 Blood Pressure 1: 146/100 Code: 8480-6 BMI: 35.7 Code: 08971-5 Heart Rate 1: 96 bpm Height: 5'4" [...] 1: 138/100 Code: 8480-6 BMI: 35.7 Code: 34946-4 Heart Rate 1: 96 bpm Height: 5'4" Respiratory Rate: 20 bpm Temperature: 36 .8 (C) / 98.2 (F) Weight: 208 lbs 05/06/2012 Blood Pressure 1: 154/102 Code: 8480-6 BMI: 34.7 Code: 98083-9 Heart Rate 1: 116 bpm Height: 5'4" Respiratory Rate: 20 bpm Temperature: 36 .8 (C) / 98.2 (F) Weight: 202 lbs 04/03/2012 Blood Pressure 1: 134/94 Code: 8480-6 BMI: 34.8 Code: 79784-9 Heart Rate 1: 108 bpm Height: 5'4" Respiratory Rate: 20 bpm Temperature: 36 .8 (C) / 98.2 (F) Weight: 203 lbs 03/19/2012 Blood Pressure 1: 148/106 Code: 8480-6 BMI: 35.0 Code: 76796-1 Heart Rate 1: 100 bpm Height: 5'4" Respiratory Rate: 20 bpm Temperature: 36 .6 (C) / 97.9 (F) Weight: 204 lbs 02/22/2012 Blood Pressure 1: 146/94 Code: 8480-6 He art Rate 1: 88 bpm 02/21/2012 Blood Pressure 1: 172/120 Code: 8480-6 B lood Pressure 2: 152/106 Code: 8480-6 Heart Rate 1: 116 bpm 02/20/2012 Blood Pressure 1: 160/100 Code: 8480-6 BMI: 32.0 Code: 15067-9 Heart Rate 1: 84 bpm Height: 5'7" Temperature: 36.5 (C) / 97.7 (F) Weight: 204 lbs 01/30/2012 Blood Pressure 1: 152/110 Code: 8480-6 BMI: 32.0 Code: 86529-0 Heart Rate 1: 116 bpm Height: 5'7" Respiratory Rate: 20 bpm Temperature: 37 .0 (C) / 98.6 (F) Weight: 204 lbs 01/24/2012 Blood Pressure 1: 146/100 Code: 8480-6 BMI: 32.0 Code: 59922-0 Heart Rate 1: 100 bpm Height: 5'7" Respiratory Rate: 20 bpm Temperature: 36 .7 (C) / 98.0 (F) Weight: 204 lbs 01/10/2012 Blood Pressure 1: 156/94 Code: 8480-6 BMI: 32.6 Code: 29110-1 Heart Rate 1: 72 bpm Height: 5'7" Respiratory Rate: 20 bpm Temperature: 36 .8 (C) / 98.2 (F) Weight: 208 lbs 12/11/2011 Blood Pressure 1: 146/100 Code: 8480-6 Heart Rat e 1: 116 bpm Height: 5'7" Respiratory Rate: 20 bpm Temperature: 36.9 (C) / 98.4 (F) We ight: 11/09/2011 Blood Pressure 1: 148/96 Code: 8480-6 BMI: 32.1 Code: 66713-5 Heart Rate 1: 116 bpm Height: 5'7" Respiratory Rate: 20 bpm Temperature: 36 .7 (C) / 98.0 (F) Weight: 205 lbs 09/13/2011 Blood Pressure 1: 126/88 Code: 8480-6 Heart Rate 1: 88 bpm Height: 5'7" Respiratory Rate: 20 bpm Temperature: 36.9 (C) / 98.4 (F) We ight: 08/31/2011 Blood Pressure 1: 118/82 Code: 8480-6 BMI: 32.0 Code: 65098-3 Heart Rate 1: 80 bpm Height: 5'7" Temperature: 36.4 (C) / 97.6 (F) Weight: 204 lbs 07/06/2011 Blood Pressure 1: 128/86 Code: 8480-6 BMI: 30.9 Code: 87352-0 Heart Rate 1: 92 bpm Height: 5'7" Respiratory Rate: 20 bpm Temperature: 36 .9 (C) / 98.4 (F) Weight: 197 lbs 06/06/2011 Blood Pressure 1: 112/74 Code: 8480-6 BMI: 31.0 Code: 39822-9 Heart Rate 1: 72 bpm Height: 5'7" [...] 1: 128/92 Code: 8480-6 BMI: 33.6 Code: 91396-9 Heart Rate 1: 104 bpm Height: 5'4" [...] Check-up Encounters Encounter Performer Location Codes Date ([id number]) OFFICE/OUTPATIENT VISIT EST Diagnosis: Ingrowing nail[ICD10: L60.0] Diagnosis: Type 2 diabetes mellitus with hyperglycemia[ICD10: E11.65] Kathleen Zuniga MARÍA ELENA [email or web address] CPT-4: 78739 10/07/2019 ([id number]) OFFICE/OUTPATIENT VISIT EST Diagnosis: DM w/o complication type II, uncontrolled[ICD10: E11.65] Diagnosis: Hypertriglyceridemia[ICD10: E78.1] Diagnosis: Essential hypertension[ICD10: I10] María Elena JEAN [email or web address] CPT-4: 73653 09/30/2019 ([id number]) NURSE/OUTPATIENT VISIT EST Diagnosis: Essential (primary) hypertension[ICD10: I10] Diagnosis: Cervicalgia[ICD10: M54.2] Diagnosis: Hyperglycemia, unspecified[ICD10: R73.9] Diagnosis: Mixed hyperlipidemia[ICD10: E78.2] María Elena JEAN [email or web address] CPT-4: 54865 09/29/2019 ([id number]) OFFICE/OUTPATIENT VISIT EST Diagnosis: Essential (primary) hypertension[ICD10: I10] Diagnosis: Fall from bed, sequela[ICD10: W06.XXXS] María Elena REED [email or web address] CPT-4: 13527 05/28/2019 ([id number]) NURSE/OUTPATIENT VISIT EST Diagnosis: Essential (primary) hypertension[ICD10: I10] María Elena Hicks [employer] CPT-4: 88748 05/19/2019 ([id number]) OFFICE/OUTPATIENT VISIT EST Diagnosis: Essential (primary) hypertension[ICD10: I10] Diagnosis: Type 2 diabetes mellitus with hyperglycemia[ICD10: E11.65] Diagnosis: Intervertebral disc disorders with radiculopathy, 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] Diagnosis: Hormone replacement therapy[ICD10: Z79.890] María Elena APPIAH DO [facility] CPT-4: 99181 01/22/2019 ([id number]) OFFICE/OUTPATIENT VISIT EST Diagnosis: Essential (primary) hypertension[ICD10: I10] Diagnosis: Type 2 diabetes mellitus with hyperglycemia[ICD10: E11.65] María Elena APPIAH [facility] [place] CPT-4: 38248 09/30/2018 ([id number]) OFFICE/OUTPATIENT VISIT EST Diagnosis: Pain in left elbow[ICD10: M25.522] Diagnosis: Acute stress reaction[ICD10: F43.0] Diagnosis: Primary insomnia[ICD10: F51.01] Diagnosis: Abnormal weight gain[ICD10: R63.5] María Elena APPIAH [facility] [place] CPT-4: 62501 08/27/2018 ([id number]) OFFICE/OUTPATIENT VISIT EST Diagnosis: Acute recurrent sinusitis, unspecified[ICD10: J01.91] Diagnosis: Follicular disorder, unspecified[ICD10: L73.9] Diagnosis: Tinea corporis[ICD10: B35.4] María Elena APPIAH [facility] [place] CPT-4: 67869 08/09/2018 ([id number]) OFFICE/OUTPATIENT VISIT EST Diagnosis: Tinea corporis[ICD10: B35.4] Diagnosis: Anxiety disorder, unspecified[ICD10: F41.9] Diagnosis: Menopausal and female climacteric states[ICD10: N95.1] María Elena APPIAH [facility] [place] CPT-4: 00360 07/22/2018 ([id number]) NURSE/OUTPATIENT VISIT EST Diagnosis: Cellulitis of right toe[ICD10: L03.031] María Elena APPIAH [facility] [place] CPT-4: 25875 06/19/2018 ([id number]) OFFICE/OUTPATIENT VISIT EST Diagnosis: Cellulitis of right toe[ICD10: L03.031] Kathleen APPIAH [facility] [place] CPT-4: 82700 06/17/2018 ([id number]) OFFICE/OUTPATIENT VISIT EST Diagnosis: Migraine without aura, intractable, without status migrainosus[ICD10: G43.019] Diagnosis: Zoster without complications[ICD10: B02.9] Kathleen APPIAH DO [facility] CPT-4: 57926 05/16/2018 ([id number]) OFFICE/OUTPATIENT VISIT EST Diagnosis: Cellulitis of right lower limb[ICD10: L03.115] Kathleen APPIAH DO [facility] CPT-4: 10565 03/20/2018 ([id number]) OFFICE/OUTPATIENT VISIT EST Diagnosis: Cellulitis of right lower limb[ICD10: L03.115] Kathleen APPIAH DO [facility] CPT-4: 22464 03/18/2018 ([id number]) OFFICE/OUTPATIENT VISIT EST Diagnosis: Cellulitis of right lower limb[ICD10: L03.115] Kathleen APPIAH DO [facility] CPT-4: 31758 03/15/2018 ([id number]) OFFICE/OUTPATIENT VISIT EST Diagnosis: Acute sinusitis, unspecified[ICD10: J01.90] Kathleen APPIAH DO [employer] CPT-4: 65706 02/11/2018 ([id number]) NURSE/OUTPATIENT VISIT EST Diagnosis: Otitis media, unspecified, right ear[ICD10: H66.91] María Elena APPIAH DO [employer] CPT-4: 90967 02/01/2018 ([id number]) OFFICE/OUTPATIENT VISIT EST Diagnosis: Acute suppurative otitis media without spontaneous rupture of ear drum, left ear[ICD10: H66.002] Diagnosis: Abnormal weight gain[ICD10: R63.5] Diagnosis: Intervertebral disc disorders with radiculopathy, 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] Kathleen APPIAH DO [facility] CPT-4: 99 214 01/30/2018 ([id number]) PREV VISIT EST AGE 40-64 Diagnosis: Encounter for general adult medical examination without abnormal findings[ICD10: Z00.00] Diagnosis: Essential (primary) hypertension[ICD10: I10] Diagnosis: Mixed hyperlipidemia[ICD10: E78.2] Diagnosis: Type 2 diabetes mellitus with hyperglycemia[ICD10: E11.65] Diagnosis: 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] María Elena APPIAH DO [facility] CPT-4: 71439 12/18/2017 ([id number]) OFFICE/OUTPATIENT VISIT EST Diagnosis: Cellulitis of right toe[ICD10: L03.031] Diagnosis: Mixed hyperlipidemia[ICD10: E78.2] Diagnosis: Essential (primary) hypertension[ICD10: I10] Diagnosis: Hyperglycemia, unspecified[ICD10: R73.9] Diagnosis: Nontoxic goiter, 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] María Elena APPIAH DO [facility] CPT-4: 71750 12/10/2017 ([id number]) OFFICE/OUTPATIENT VISIT EST Diagnosis: Cellulitis of right toe[ICD10: L03.031] Diagnosis: Acute sinusitis, unspecified[ICD10: J01.90] Kathleen APPIAH DO [facility] CPT-4: 73067 12/07/2017 OFFICE/OUTPATIENT VISIT EST Diagnosis: Acute maxillary sinusitis, unspecified[ICD10: J01.00] Kathleen APPIAH DO [facility] CPT-4: 82833 10/08/2017 ([id number]) OFFICE/OUTPATIENT VISIT EST Diagnosis: Cellulitis of left toe[ICD10: L03.032] María Elena ISAAC [email or web address] APPIAH [employer] [facility] CPT-4: 90767 09/21/2017 ([id number]) OFFICE/OUTPATIENT VISIT EST Diagnosis: Insomnia, unspecified[ICD10: G47.00] Diagnosis: Major depressive disorder, single episode, unspecified[ICD10: F32.9] Diagnosis: Anxiety disorder, unspecified[ICD10: F41.9] Diagnosis: Cellulitis of left toe[ICD10: L03.032] Diagnosis: Snoring[ICD10: R06.83] Kathleen APPIAH DO [facility] CPT-4: 22723 09/20/2017 ([id number]) OFFICE/OUTPATIENT VISIT EST Diagnosis: Cellulitis of left toe[ICD10: L03.032] María Elena ORTAER [facility] [place] CPT-4: 70806 07/19/2017 OFFICE/OUTPATIENT VISIT EST Diagnosis: Chronic sinusitis, unspecified[ICD10: J32.9] Diagnosis: Generalized hyperhidrosis[ICD10: R61] Kathleen APPIAH [facility] CPT-4: 16754 06/27/2017 ([id number]) OFFICE/OUTPATIENT VISIT EST Diagnosis: Intervertebral disc disorders with radiculopathy, 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] Diagnosis: Primary insomnia[ICD10: F51.01] Diagnosis: Other fatigue[ICD10: R53.83] María Elena APPIAH [facility] [place] CPT-4: 85368 04/10/2017 ([id number]) OFFICE/OUTPATIENT VISIT EST Diagnosis: Primary insomnia[ICD10: F51.01] Diagnosis: Localized edema[ICD10: R60.0] Diagnosis: 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] María Elena APPIAH [facility] [place] CPT-4: 65538 12/13/2016 ([id number]) OFFICE/OUTPATIENT VISIT EST Diagnosis: Primary insomnia[ICD10: F51.01] Diagnosis: Cyanosis[ICD10: R23.0] María Elena Bazzi [facility] [place] CPT-4: 26648 11/01/2016 ([id number]) PREV VISIT EST AGE 40-64 Diagnosis: Encounter for gynecological examination (general) (routine) without abnormal findings[ICD10: Z01.419] Diagnosis: Encounter for routine child health examination without abnormal findings[ICD10: Z00.129] María Elena Waymindivictorino [facility] [place] CPT-4: 62344 10/17/2016 ([id number]) OFFICE/OUTPATIENT VISIT EST Diagnosis: Other seasonal allergic rhinitis[ICD10: J30.2] María Elena ELLISLINE Fabiola [facility] [place] CPT-4: 31510 10/10/2016 ([id number]) OFFICE/OUTPATIENT VISIT EST Diagnosis: Pain in left arm[ICD10: M79.602] Diagnosis: Contact with and (suspected) exposure to potentially hazardous body fluids[ICD10: Z77.21] Diagnosis: 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, 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] Diagnosis: Unspecified open wound, right foot, sequela[ICD10: S91.301S] María Elena [facility] CPT-4: 89078 09/19/2016 ([id number]) OFFICE/OUTPATIENT VISIT EST Diagnosis: Chronic sinusitis, unspecified[ICD10: J32.9] Diagnosis: Allergic rhinitis due to pollen[ICD10: J30.1] María Elena [facility] CPT-4: 05317 08/24/2016 ([id number]) OFFICE/OUTPATIENT VISIT EST Diagnosis: Acute bronchitis, unspecified[ICD10: J20.9] María Elena [facility] CPT-4: 14402 08/16/2016 ([id number]) OFFICE/OUTPATIENT VISIT EST Diagnosis: Otitis media, unspecified, right ear[ICD10: H66.91] Diagnosis: Acute bronchitis, unspecified[ICD10: J20.9] María Elena [facility] [employer] [facility] CPT-4: 22548 08/10/2016 ([id number]) OFFICE/OUTPATIENT VISIT EST Diagnosis: Acute recurrent sinusitis, unspecified[ICD10: J01.91] Diagnosis: Allergic rhinitis due to pollen[ICD10: J30.1] María Elena [facility] [employer] [facility] CPT-4: 54602 08/02/2016 ([id number]) OFFICE/OUTPATIENT VISIT EST Diagnosis: Pain in unspecified joint[ICD10: M25.50] María Elena [facility] [employer] [facility] CPT-4: 93783 07/27/2016 OFFICE/OUTPATIENT VISIT EST Diagnosis: 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] Diagnosis: Acute recurrent sinusitis, unspecified[ICD10: J01.91] Diagnosis: Other fatigue[ICD10: R53.83] Diagnosis: Primary insomnia[ICD10: F51.01] Diagnosis: Pain in unspecified joint[ICD10: M25.50] María Elenamarcella [facility] [place] CPT-4: 77647 07/20/2016 ([id number]) OFFICE/OUTPATIENT VISIT EST Diagnosis: Blister (nonthermal), left great toe, initial encounter[ICD10: S90.422A] Loan [facility] CPT-4: 67669 ([id number]) OFFICE/OUTPATIENT VISIT EST Diagnosis: Acute recurrent sinusitis, unspecified[ICD10: J01.91] María Elena [facility] CPT-4: 69022 05/25/2016 ([id number]) OFFICE/OUTPATIENT VISIT EST Diagnosis: Acute sinusitis, unspecified[ICD10: J01.90] María Elena [facility] [place] CPT-4: 49319 04/26/2016 ([id number]) OFFICE/OUTPATIENT VISIT EST Diagnosis: Flushing[ICD10: R23.2] Diagnosis: Primary insomnia[ICD10: F51.01] María Elena [facility] [place] CPT-4: 37510 03/02/2016 ([id number]) OFFICE/OUTPATIENT VISIT EST Diagnosis: Other seasonal allergic rhinitis[ICD10: J30.2] Loan [facility] [place] CPT-4: 47086 02/09/2016 ([id number]) OFFICE/OUTPATIENT VISIT EST Diagnosis: Primary insomnia[ICD10: F51.01] Diagnosis: Urinary tract infection, site not specified[ICD10: N39.0] María Elena [facility] [place] CPT-4: 68277 01/24/2016 ([id number]) OFFICE/OUTPATIENT VISIT EST Diagnosis: Other specified disorders of Eustachian tube, bilateral[ICD10: H69.83] Diagnosis: Allergic rhinitis, unspecified[ICD10: J30.9] Loan [facility] [place] CPT-4: 48725 12/23/2015 ([id number]) OFFICE/OUTPATIENT VISIT EST Diagnosis: Acute recurrent sinusitis, unspecified[ICD10: J01.91] Diagnosis: 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] Diagnosis: Allergic rhinitis, unspecified[ICD10: J30.9] María Elena APPIAH DO [facility] CPT-4: 26501 12/08/2015 ([id number]) OFFICE/OUTPATIENT VISIT EST Diagnosis: Allergic rhinitis, unspecified[ICD10: J30.9] Diagnosis: Pain in unspecified joint[ICD10: M25.50] María Elena APPIHA DO [facility] CPT-4: 11123 10/07/2015 ([id number]) OFFICE/OUTPATIENT VISIT EST Diagnosis: Essential (primary) hypertension[ICD10: I10] María Elena APPIAH DO [facility] CPT-4: 43811 10/06/2015 OFFICE/OUTPATIENT VISIT EST Diagnosis: Localized enlarged lymph nodes[ICD10: R59.0] Diagnosis: Local infection of the skin and subcutaneous tissue, unspecified[ICD10: L08.9] June Flores MARÍA ELENA APPIAH [facility] CPT- 4: 08499 09/14/2015 ([id number]) OFFICE/OUTPATIENT VISIT EST Diagnosis: Essential (primary) hypertension[ICD10: I10] Diagnosis: Actinic keratosis[ICD10: L57.0] María Elena APPIAH DO [facility] CPT-4: 91221 09/07/2015 ([id number]) OFFICE/OUTPATIENT VISIT EST Diagnosis: Essential (primary) hypertension[ICD10: I10] Diagnosis: Acute stress reaction[ICD10: F43.0] María Elena APPIAH [facility] CPT-4: 56477 08/18/2015 ([id number]) OFFICE/OUTPATIENT VISIT EST Diagnosis: Essential (primary) hypertension[ICD10: I10] María Elena APPIAH DO [facility] CPT-4: 45095 07/07/2015 ([id number]) OFFICE/OUTPATIENT VISIT EST Diagnosis: Essential (primary) hypertension[ICD10: I10] María Elena APPIAH DO [facility] CPT-4: 72229 06/24/2015 ([id number]) OFFICE/OUTPATIENT VISIT EST Diagnosis: Essential (primary) hypertension[ICD10: I10] María Elena APPIAH [facility] CPT-4: 81951 06/21/2015 ([id number]) OFFICE/OUTPATIENT VISIT EST Diagnosis: Essential (primary) hypertension[ICD10: I10] Diagnosis: Mixed hyperlipidemia[ICD10: E78.2] Diagnosis: Acute stress reaction[ICD10: F43.0] Diagnosis: Primary insomnia[ICD10: F51.01] María Elena APPIAH [facility] CPT-4: 96874 06/16/2015 ([id number]) OFFICE/OUTPATIENT VISIT EST Diagnosis: INSOMNIA NOS[ICD9: 780.52] Diagnosis: HYPERTENSION[ICD9: 401.9] Diagnosis: Stress reaction[ICD9: 308.9] María Elena APPIAH [facility] CPT-4: 10654 06/02/2015 ([id number]) OFFICE/OUTPATIENT VISIT EST Diagnosis: HYPERTENSION[ICD9: 401.9] Diagnosis: Stress reaction[ICD9: 308.9] María Elena APPIAH [facility] CPT-4: 59861 05/20/2015 ([id number]) OFFICE/OUTPATIENT VISIT EST Diagnosis: Skin lesion[ICD9: 709.9] 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] María Elena APPIAH [facility] CPT-4: 59949 05/10/2015 ([id number]) OFFICE/OUTPATIENT VISIT EST Diagnosis: SINUSITIS, ACUTE[ICD9: 461.9] Diagnosis: ALLERGIC RHINITIS[ICD9: 477.9] Diagnosis: DERMATITIS NOS[ICD9: 692.9] María Elena Rodríguez ORI [facility] CPT-4: 73120 03/16/2015 OFFICE/OUTPATIENT VISIT EST Diagnosis: Otitis media[ICD9: 382.9] Diagnosis: SINUSITIS, ACUTE[ICD9: 461.9] June Flores MARÍA ELENA APPIAH [facility] CPT-4: 26646 09/11/2014 ([id number]) OFFICE/OUTPATIENT VISIT EST Diagnosis: HYPERLIPIDEMIA NEC/NOS[ICD9: 272.4] María Elena Ortavictorino APPIAH [facility] CPT-4: 94219 08/31/2014 ([id number]) OFFICE/OUTPATIENT VISIT EST Diagnosis: - I - HYPERTENSION[ICD9: 401.9] Diagnosis: HYPERLIPIDEMIA NEC/NOS[ICD9: 272.4] María Elena APPIAH DO [facility] CPT-4: 83450 08/27/2014 ([id number]) OFFICE/OUTPATIENT VISIT EST Diagnosis: ABDOMINAL PAIN[ICD9: 789.00] Diagnosis: DYSPEPSIA[ICD9: 536.8] Diagnosis: Thoracic back pain[ICD9: 724.1] María Elena APPIAH [facility] CPT-4: 01987 07/21/2014 ([id number]) OFFICE/OUTPATIENT VISIT EST Diagnosis: ALLERGIC RHINITIS[ICD9: 477.9] María Elena APPIAH [facility] CPT-4: 62399 07/15/2014 ([id number]) OFFICE/OUTPATIENT VISIT EST Diagnosis: EDEMA[ICD9: 782.3] Diagnosis: Chronic insomnia[ICD9: 780.52] María Elena APPIAH [facility] CPT-4: 90427 05/18/2014 ([id number]) OFFICE/OUTPATIENT VISIT EST Diagnosis: Thyromegaly[ICD9: 240.9] Diagnosis: - I - HYPERTENSION[ICD9: 401.9] Diagnosis: ROUTINE MEDICAL EXAM[ICD9: V70.0] Diagnosis: EDEMA[ICD9: 782.3] María Elena APPIAH [facility] CPT-4: 93667 05/14/2014 OFFICE/OUTPATIENT VISIT EST Diagnosis: BRONCHITIS, ACUTE[ICD9: 466.0] Diagnosis: SINUSITIS, ACUTE[ICD9: 461.9] María Elena APPIAH [facility] CPT-4: 71506 04/21/2014 OFFICE/OUTPATIENT VISIT EST Diagnosis: SINUSITIS, ACUTE[ICD9: 461.9] June Flores MARÍA ELENA APPIAH [facility] CPT-4: 91698 03/04/2014 ([id number]) OFFICE/OUTPATIENT VISIT EST Diagnosis: VACCINE FOR TDAP[ICD10: Z23] María Elena APPIAH [facility] CPT-4: 86008 02/27/2014 ([id number]) OFFICE/OUTPATIENT VISIT EST Diagnosis: Seborrheic keratoses, inflamed[ICD9: 702.11] Diagnosis: ACTINIC KERATOSIS[ICD9: 702.0] Diagnosis: INSOMNIA NOS[ICD9: 780.52] María Elena [facility] CPT-4: 33328 01/13/2014 OFFICE/OUTPATIENT VISIT EST 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] Diagnosis: ALLERGIC RHINITIS[ICD9: 477.9] Diagnosis: Serous otitis media[ICD9: 381.4] María Elena APPIAH [facility] CPT-4: 83527 12/24/2013 ([id number]) OFFICE/OUTPATIENT VISIT EST Diagnosis: SINUSITIS, ACUTE[ICD9: 461.9] Diagnosis: ALLERGIC RHINITIS[ICD9: 477.9] 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] María Elena APPIAH [facility] CPT-4: 58167 11/12/2013 ([id number]) OFFICE/OUTPATIENT VISIT EST Diagnosis: ALLERGIC RHINITIS[ICD9: 477.9] Diagnosis: SINUSITIS, ACUTE[ICD9: 461.9] María Elena APPIAH [facility] CPT-4: 71620 10/21/2013 ([id number]) OFFICE/OUTPATIENT VISIT EST Diagnosis: ASYMPTOMATIC VARICOSE VEINS[ICD9: 454.9] Diagnosis: INSOMNIA NOS[ICD9: 780.52] María Elena [facility] CPT-4: 88692 09/22/2013 OFFICE/OUTPATIENT VISIT EST Diagnosis: SINUSITIS, ACUTE[ICD9: 461.9] June Flores MARÍA ELNEA APPIAH [facility] CPT-4: 00352 08/27/2013 ([id number]) OFFICE/OUTPATIENT VISIT EST Diagnosis: CEPHALGIA[ICD9: 784.0] Diagnosis: CEPHALGIA, TENSION[ICD9: 307.81] 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] María Elena APPIAH DO [facility] CPT-4: 50766 08/04/2013 ([id number]) OFFICE/OUTPATIENT VISIT EST Diagnosis: Cervicalgia[ICD9: 723.1] Diagnosis: SPASM OF MUSCLE[ICD9: 728.85] Diagnosis: CEPHALGIA, TENSION[ICD9: 307.81] María Elena APPIAH DO [facility] CPT-4: 66015 07/23/2013 ([id number]) OFFICE/OUTPATIENT VISIT EST 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] Diagnosis: ALLERGIC RHINITIS[ICD9: 477.9] María Elena APPIAH DO [facility] CPT-4: 56486 06/23/2013 ([id number]) OFFICE/OUTPATIENT VISIT EST Diagnosis: ALLERGIC RHINITIS[ICD9: 477.9] Diagnosis: ACUTE SEROUS OTITIS MEDIA[ICD9: 381.01] 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] María Elena APPIAH DO [facility] CPT-4: 42236 05/26/2013 ([id number]) OFFICE/OUTPATIENT VISIT EST Diagnosis: HYPERTENSION[ICD9: 401.9] Diagnosis: EDEMA[ICD9: 782.3] Diagnosis: Serous otitis media[ICD9: 381.4] María Elena APPIAH DO [facility] CPT-4: 22116 04/16/2013 ([id number]) OFFICE/OUTPATIENT VISIT EST Diagnosis: SINUSITIS, ACUTE[ICD9: 461.9] Diagnosis: ALLERGIC RHINITIS[ICD9: 477.9] Diagnosis: EDEMA[ICD9: 782.3] Diagnosis: Thyromegaly[ICD9: 240.9] Diagnosis: MALAISE AND FATIGUE[ICD9: 780.79] María Elena APPIAH DO [facility] CPT-4: 85895 03/05/2013 ([id number]) OFFICE/OUTPATIENT VISIT EST Diagnosis: PAIN, LOWER BACK[ICD9: 724.2] Diagnosis: SPASM OF MUSCLE[ICD9: 728.85] María Elena APPAIH DO [facility] CPT-4: 66159 12/23/2012 OFFICE/OUTPATIENT VISIT EST Diagnosis: Low back pain[ICD9: 724.2] Lashawn Hicks [facility]: 12743 12/16/2012 ([id number]) OFFICE/OUTPATIENT VISIT EST Diagnosis: PAIN, LOWER BACK[ICD9: 724.2] Diagnosis: SCIATICA[ICD9: 724.3] Diagnosis: Lumbar herniated disc[ICD9: 722.10] María Elena COLON LucioJj TD [facility] CPT-4: 96348 12/09/2012 ([id number]) OFFICE/OUTPATIENT VISIT EST Diagnosis: PAIN, LOWER BACK[ICD9: 724.2] Diagnosis: SCIATICA[ICD9: 724.3] Diagnosis: LUMBAR DISC DISPLACEMENT[ICD9: 722.10] María Elena MARIN LucioJj TD [facility] CPT-4: 89556 12/04/2012 OFFICE/OUTPATIENT VISIT EST Diagnosis: Pneumonia[ICD9: 486] Mary Hicks TD [facility] CPT-4: 52990 11/22/2012 ([id number]) OFFICE/OUTPATIENT VISIT EST Diagnosis: PNEUMONIA, ORGANISM[ICD9: 486] Diagnosis: Exacerbation of RAD (reactive airway disease)[ICD9: 493.92] María Elena JUARES LucioJj TD [facility] CPT-4: 26251 11/21/2012 OFFICE/OUTPATIENT VISIT EST Diagnosis: HYPERTENSION[ICD9: 401.9] Diagnosis: Cephalgia[ICD9: 784.0] Lashawn Hicks [facility] CPT-4: 67061 10/29/2012 ([id number]) OFFICE/OUTPATIENT VISIT EST Diagnosis: MALAISE AND FATIGUE[ICD9: 780.79] Diagnosis: ARTHRALGIA-MULTIPLE SITES[ICD9: 719.49] María Elena Hicks TD [facility] CPT-4: 70886 10/14/2012 ([id number]) OFFICE/OUTPATIENT VISIT EST Diagnosis: URINARY FREQUENCY[ICD9: 788.41] María Elena Hicks TD [facility] CPT-4: 17742 09/27/2012 ([id number]) OFFICE/OUTPATIENT VISIT EST Diagnosis: MALAISE AND FATIGUE[ICD9: 780.79] Diagnosis: ARTHRALGIA-MULTIPLE SITES[ICD9: 719.49] María Elena Waymindivictorino KYLAH APARNAALCIDES LucioJj [facility] CPT-4: 49850 09/25/2012 ([id number]) OFFICE/OUTPATIENT VISIT EST Diagnosis: SINUSITIS, ACUTE[ICD9: 461.9] 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] María Elena Seamusdawn JUARES LucioJj [facility] CPT-4: 40158 08/29/2012 OFFICE/OUTPATIENT VISIT EST Diagnosis: ACTINIC KERATOSIS[ICD9: 702.0] Diagnosis: Inflamed seborrheic keratosis[ICD9: 702.11] Diagnosis: Skin cancer of face[ICD9: 173.31] Diagnosis: HYPERTENSION[ICD9: 401.9] María Elena Seamusdawn JUARES LucioJj [facility] CPT-4: 34704 08/12/2012 ([id number]) OFFICE/OUTPATIENT VISIT EST Diagnosis: ARTHRALGIA-MULTIPLE SITES[ICD9: 719.49] Diagnosis: GOUT[ICD9: 274.9] Diagnosis: HYPERTENSION[ICD9: 401.9] Diagnosis: Tachycardia[ICD9: 785.0] María Elena Seamusdawn Hicks [facility] CPT-4: 80439 05/06/2012 ([id number]) OFFICE/OUTPATIENT VISIT EST Diagnosis: INSOMNIA NOS[ICD9: 780.52] María Elena Hicks [facility] CPT-4: 00036 04/03/2012 ([id number]) OFFICE/OUTPATIENT VISIT EST Diagnosis: INSOMNIA NOS[ICD9: 780.52] Diagnosis: HYPERTENSION[ICD9: 401.9] Diagnosis: MIGRAINE NOS/NOT INTRCBL[ICD9: 346.90] María Elena MARIN LucioJj [facility] CPT-4: 37076 03/19/2012 ([id number]) OFFICE/OUTPATIENT VISIT EST Diagnosis: CELLULITIS[ICD9: 682.9] Diagnosis: Ankle pain[ICD9: 719.47] Diagnosis: HYPERTENSION[ICD9: 401.9] María Elena Hicks [facility] CPT-4: 05466 02/20/2012 ([id number]) OFFICE/OUTPATIENT VISIT EST Diagnosis: MIGRAINE NOS/NOT INTRCBL[ICD9: 346.90] Diagnosis: Vomiting[ICD9: 787.03] María Elena Hicks CIRO Bazzi [facility] CPT-4: 60777 01/30/2012 ([id number]) OFFICE/OUTPATIENT VISIT EST Diagnosis: EDEMA[ICD9: 782.3] Diagnosis: HYPERTENSION[ICD9: 401.9] Diagnosis: ALLERGIC RHINITIS[ICD9: 477.9] Diagnosis: ARTHRALGIA-MULTIPLE SITES[ICD9: 719.49] María Elena Hicks [facility] CPT-4: 49729 01/24/2012 ([id number]) OFFICE/OUTPATIENT VISIT EST Diagnosis: SPASM OF MUSCLE[ICD9: 728.85] Diagnosis: Thoracic back pain[ICD9: 724.1] Diagnosis: Cervical pain[ICD9: 723.1] María Elena Hicks KRISTYN MUMTAZ [facility] CPT-4: 49346 01/10/2012 OFFICE/OUTPATIENT VISIT EST Diagnosis: PAIN, LOWER BACK[ICD9: 724.2] Diagnosis: LUMBAR DISC DISPLACEMENT[ICD9: 722.10] María Elena MARIN LucioJj [facility] CPT-4: 24295 12/11/2011 OFFICE/OUTPATIENT VISIT EST Diagnosis: MIGRAINE NOS/NOT INTRCBL[ICD9: 346.90] Diagnosis: SINUSITIS, ACUTE[ICD9: 461.9] María Elena Hicsk [facility] CPT-4: 08361 11/09/2011 OFFICE/OUTPATIENT VISIT EST Diagnosis: MIGRAINE NOS/NOT INTRCBL[ICD9: 346.90] Diagnosis: LYMPHADENOPATHY[ICD9: 785.6] María Elena Hicks [facility] CPT-4: 68337 09/13/2011 OFFICE/OUTPATIENT VISIT EST Diagnosis: MALAISE AND FATIGUE[ICD9: 780.79] Diagnosis: ARTHRALGIA-MULTIPLE SITES[ICD9: 719.49] María Elena Hicks [facility] CPT-4: 15139 08/31/2011 OFFICE/OUTPATIENT VISIT EST Diagnosis: SINUSITIS, ACUTE[ICD9: 461.9] María Elena APPIAH DO [facility] CPT-4: 18150 07/20/2011 OFFICE/OUTPATIENT VISIT EST Diagnosis: HYPERTENSION[ICD9: 401.9] Diagnosis: PAIN, LOWER BACK[ICD9: 724.2] Diagnosis: SPASM OF MUSCLE[ICD9: 728.85] María Elena APPIAH DO [facility] CPT-4: 72274 07/06/2011 OFFICE/OUTPATIENT VISIT EST Diagnosis: MIGRAINE NOS/NOT INTRCBL[ICD9: 346.90] Diagnosis: HYPERTENSION[ICD9: 401.9] María Elena [facility] CPT-4: 91387 05/22/2011 OFFICE/OUTPATIENT VISIT EST Diagnosis: SINUSITIS, ACUTE[ICD9: 461.9] Diagnosis: MIGRAINE NOS/NOT INTRCBL[ICD9: 346.90] Diagnosis: Dehydration[ICD9: 276.51] Diagnosis: Vomiting[ICD9: 787.03] María Elena ELLISLINE Fabiola ORTAE Rose Mary [facility] CPT-4: 20348 05/09/2011 ([id number]) OFFICE/OUTPATIENT VISIT EST María Elena Td ISAAC UJARED S. [facility] CPT-4: 84750 02/14/2011 ([id number]) OFFICE/OUTPATIENT VISIT EST María Elena Seamusmindivictorino MARLIN UJARED S. [facility] CPT-4: 98890 02/03/2011 ([id number]) OFFICE/OUTPATIENT VISIT EST María Elena Seamusmindivictorino MARLIN UJARED S. ORENDER DO [facility] CPT-4: 86316 01/31/2011 ([id number]) OFFICE/OUTPATIENT VISIT EST María Elena Ortavictorino MARLIN UJARED S. [facility] CPT-4: 62602 01/25/2011 ([id number]) OFFICE/OUTPATIENT VISIT EST María Elena Ortavictorino MARLIN TANIA S. [facility] CPT-4: 15432 01/18/2011 ([id number]) OFFICE/OUTPATIENT VISIT EST María Elena Oredawn MARIN S. ORENDER [facility] CPT-4: 59211 11/29/2010 ([id number]) OFFICE/OUTPATIENT VISIT, EST María Elena REED S. [facility]ER [facility] CPT-4: 75917 10/10/2010 ([id number]) OFFICE/OUTPATIENT VISIT, EST María Elena REED S. [facility] CPT-4: 36349 06/07/2010 ([id number]) OFFICE/OUTPATIENT VISIT, EST María Elena REED S. [facility] CPT-4: 47041 04/27/2010 ([id number]) OFFICE/OUTPATIENT VISIT, EST María Elena REED S. [facility] CPT-4: 35620 04/05/2010 ([id number]) OFFICE/OUTPATIENT VISIT, EST María Elena REED S. [facility] CPT-4: 08658 03/09/2010 ([id number]) OFFICE/OUTPATIENT VISIT, EST María Elena REED S. [facility] CPT-4: 40514 03/03/2010 ([id number]) OFFICE/OUTPATIENT VISIT, EST María Elena REED S. [facility]ER [facility] CPT-4: 49128 01/17/2010 ([id number]) PREV VISIT, EST, AGE 40-64 María Elena COLEMAN SJj [facility] CPT-4: 56004 12/27/2009 Plan of Care Planned Activity Notes [...] ICD-10 : E11.65 10/07/2019 Appointment: Kathleen Zuniga [address] [place] [address] [place] OFFICE SURGERY 10/07/2019 Visit Diagnosis Plan: [...] : E11.65 09/30/2019 Appointment: María Elena Appiahtel: [address] [place], [place] [phone] [place] CHECK UP 09/30/2019 Patient Education: Premarin- Optimize[employer] Coupon [id number] https://www.Mom-stop.com.com/samplemd/resources/getResource/61/66873s44-n467-6mfp-c9 Completed 09/30/2019 Appointment: María Elena Appiah WPtel: [phone] [facility] [place] LAB 09/29/2019 Appointment: María Elena Appiahtel: [address] [place], [place] [id number] [place] Won't have the new insurance till Sep 10. CANANALI Longoria 07/24/2019 Visit Diagnosis Plan: Essential (primary) hypertension Discussion: Stable Will have insurance in July and do lab then ICD-9 : 401.9 ICD-10 : I10 05/28/2019 Visit Diagnosis Plan: Fall from bed, sequela Discussio n: DC gabapentin Decrease baclofen to 10mg TID prn ICD-9 : E929.3 ICD-10 : W06.XXXS 05/28/2019 Appointment: María Elena Appiah WPtel: [address] [place], [place] [phone] [place] FOLLOW UP 05/28/2019 Appointment: María Elena Appiah WPtel: [address] [place], [place] [phone] [place] BP CHECK 05/19/2019 Visit Diagnosis Plan: [...] Z79.890 01/22/2019 Appointment: María Elena Appiah WPtel: [address] [place], [place] [phone] [place] FOLLOW UP 01/22/2019 Patient Education: estradiol- Optimize[employer] Coupon [id number] https://www.ECKey/sampleScience Behind Sweat/resources/getResource/61/680w786j-4nv3-7k03-3p Completed 01/22/2019 Appointment: María Elena Appiah WPtel: [address] [place] [address] [place] CANCELED 01/20/2019 Appointment: María Elena Appiah WPtel: [address] [place] [address] US LM NO SHOW 01/06/2019 Appointment: María Elena Appiah WPtel: [address] [place] [address] US CANCELED 10/17/2018 Appointment: María Elena Appiah WPtel: [address] [place] [address] US BP CHECK 10/09/2018 Visit Diagnosis Plan: Type 2 diabetes mellitus with hy perglycemia Discussion: Patient still has not gotten lab done--will go today Check UA for microalbumin Follow Up: 3 months ICD-9 : 250.02 ICD-10 : E11.65 09/30/2018 Visit Diagnosis Plan: Essential (primary) hypertension Discussion: Continue current meds and monitor BP ICD-9 : 401.9 ICD-10 : I10 09/30/2018 Appointment: María Elena Appiahtel: [address] [place] [address] US FOLLOW UP 09/30/2018 Visit Diagnosis Plan: [...] 08/27/2018 Appointment: María Elena Appiah WPtel: [address] [place] [address] US ACUTE ILLNESS 08/27/2018 Appointment: María Elena Appiah WPtel: [address] [place], [place] [phone] [place] Patient stated she went out to [...] Tyle... 08/09/2018 Appointment: María Elena Appiah WPtel: [address] [place] [address] ACUTE ILLNESS 08/09/2018 Appointment: María Elena Appiah WPtel: [address] [place] [address] NO SHOW 08/08/2018 Visit Diagnosis Plan: Anxiety [...] 07/22/2018 Appointment: María Elena Appiah WPtel: [address] [place], [place] [id number] ACUTE ILLNESS 07/22/2018 Appointment: María Elena Appiah WPtel: [phone] [id number] [place] INJECTION 06/19/2018 Patient Education: Patient Medication [...] ICD-10 : L03.031 06/17/2018 Appointment: Kathleen Zuniga [address] [place] [address] ACUTE ILLNESS 06/17/2018 Patient Education: Patient Medication [...] ICD-10 : B02.9 05/16/2018 Appointment: Kathleen Zuniga [address] [place], [place] [phone] ACUTE ILLNESS 05/16/2018 Patient Education: Patient Medication [...] : L03.115 03/20/2018 Appointment: Kathleen Zuniga [address] [place], [place] [phone] FOLLOW UP 03/20/2018 Patient Education: Patient Medication [...] ICD-10 : L03.115 03/18/2018 Appointment: Kathleen Zuniga [address] [place], [place] [address] FOLLOW UP 03/18/2018 Patient Education: Patient Medication [...] ICD-10 : L03.115 03/15/2018 Appointment: Kathleen Zuniga [address] [place], [place] [address] ACUTE ILLNESS 03/15/2018 Patient Education: Patient Medication [...] ICD-10 : J01.90 02/11/2018 Appointment: Kathleen Zuniga [address] [place], [place] [address] ACUTE ILLNESS 02/11/2018 Patient Education: Patient Medication Summary Completed 02/11/2018 Appointment: María Elena Appiah WPtel: [phone] [facility] [place] INJECTION 02/01/2018 Patient Education: Patient [...] ICD-10 : M51.16 01/30/2018 Appointment: Kathleen Zuniga [address] [place], [place] [id number] ACUTE ILLNESS 01/30/2018 Patient Education: Patient [...] E11.65 12/18/2017 Appointment: María Elena Appiah WPtel: [address] [place] [address] Annual Well Visit 12/18/2017 Patient Education: Patient Medication Summary Completed 12/18/2017 Care Plan: Referral Order SNOMED-CT : [id number] Pending 12/18/2017 Appointment: María Elena Appiah WPtel: [phone] [address] [place] INJECTION 12/10/2017 Patient Education: Patient Medication [...] ICD-10 : L03.031 12/07/2017 Appointment: Kathleen Zuniga [address] [place] [address] ACUTE ILLNESS 12/07/2017 Patient Education: Patient Medication [...] : J01.00 10/08/2017 Appointment: Kathleen Zuniga [address] ACUTE ILLNESS 10/08/2017 Patient Education: Patient Medication Summary Completed 10/08/2017 Appointment: María Elena Appiah WPtel: [phone] [id number] [place] INJECTION 09/21/2017 Patient Education: Patient Medication [...] ICD-10 : R06.83 09/20/2017 Appointment: Kathleen Zuniga [address] [place], [place] [id number] ACUTE ILLNESS 09/20/2017 Patient Education: Patient Medication [...] ICD-10 : L60.0 08/29/2017 Appointment: Kathleen Zuniga [address] [place] [address] OFFICE SURGERY 08/29/2017 Patient Education: Patient Medication Summary Completed 08/29/2017 Visit Diagnosis Plan: Actinic keratosis Discussion: Cr yotherapy as above ICD-9 : 702.0 ICD-10 : L57.0 08/01/2017 Appointment: María Elena Appiah WPtel: [address] [place] [address] OFFICE SURGERY 08/01/2017 Patient Education: Patient Medication Summary Completed 08/01/2017 Appointment: María Elena Appiah WPtel: [address] [place] [address] PATIENT THOUGHT APPOINTMENT WAS TOMORROW 07/26/17 CALLED 15 MINUTES BEFORE APPT TO SAY SHE DIDN'T HAVE ANYONE TO COVER HER BUSINESS AND WOULD NOT MAKE IT NO SHOW 07/25/2017 Visit Diagnosis Plan: Cellulitis of left toe Discussio n: Clindamycin and notify if worsening or persistis ICD-9 : 681.10 ICD-10 : L03.032 07/19/2017 Appointment: María Elena Appiah WPtel: [address] [place], [place] [phone] MEDICATION REVIEW 07/19/2017 Patient Education: Patient Medication Summary Completed 07/19/2017 Appointment: María Elena Appiah WPtel: [address] [place] [address] US CANCELED 07/04/2017 Visit Diagnosis Plan: Generalized hyperhidrosis Discus ian: CBC, CMP, TSH, free T4 ordered to assess. will review labs. ICD-9 : 780.8 ICD-10 : R61 06/27/2017 Visit Diagnosis Plan: Chronic sinusitis, unspecified D iscussion: Referral sent to dr. ablarado in [place] per patient request. patient has been treated multiple times for sinus infections with no recovery. patient was seen by dr sanchez in the past with no interventions. patient has deviated septum which may be affecting her sinuses. 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, including hip Discussion: Shave removal of above lesio n--sent to pathology ICD-9 : 216.7 ICD-10 : D23.72 01/24/2017 Appointment: María Elena Appiah WPtel: [address] [place], [place] [id number] 01/23 confirmed ~sl OFFICE SURGERY 01/24/2017 Patient Education: Patient Medication Summary Completed 01/24/2017 Appointment: Loan Sánchez [address] [place] [address] 01/09 rescheduled~sl RESCHEDULED 01/15/2017 Visit Diagnosis Plan: [...] L81.4 12/13/2016 Appointment: María Elena Appiah WPtel: [address] [place], [place] [id number] [place] 12/12 confirmed ~sl MEDICATION REVIEW 12/13/2016 Patient Education: Patient Medication Summary Completed 12/13/2016 Appointment: María Elena Appiah WPtel: [address] [place], [place] [id number] [place] rescheduled for 12/13/16 at 11am RESCHEDULED 0 12/06/2016 Appointment: María Elena Appiah WPtel: [address] [place], [place] [phone] [place] CANCELED 11/23/2016 Patient Education: Patient Medication [...] 11/01/2016 Appointment: María Elena Appiah WPtel: [address] [place], [place] [id number] [place] 10/31 lm `sl 11/01 lm`sl MEDICATION REVIEW 017 Patient Education: Patient Medication Summary Completed 11/01/2016 Referral: Canelo Overton WPtel: [phone] [id number] Referral Initiated 10/30/2016 Visit Diagnosis Plan: Encounter [...] 10/17/2016 Appointment: María Elena Appiah WPtel: [address] [place], [place] [id number] 10/16 confirmed ~sl PAP 10/17/2016 Patient Education: Patient Medication Summary Completed 10/17/2016 Care Plan: MAMMOGRAM SCREENING LOINC : 2 6347-5 Pending 10/17/2016 Visit Diagnosis Plan: Other seasonal allergic rhinitis Discussion: Decadron/Garamycin Nasal Baltic Mix Too soon for steroid Retry zyrtec 10mg daily ICD-9 : 477.9 ICD-10 : J30.2 10/10/2016 Appointment: María Elena Appiah WPtel: [address] [place], [place] [id number] FOLLOW UP 10/10/2016 Patient Education: Patient Medication Summary Completed 10/10/2016 Appointment: María Elena Appiah WPtel: [address] [place], [place] [phone] 10/02 reschedule `sl RESCHEDULED 10/02/2016 Visit Plan: See surgery for removal of n ew left arm lesion and right foot lesion Lyrica to use next month for left arm paresthesias Continue current meds Discussed sunscreen/sunblock combo 09/19/2016 Appointment: María Elena Appiah WPtel: [address] [place], [place] [id number] 09/18 confirmed ~sl FOLLOW UP 09/19/2016 Patient Education: Patient Medication Summary Completed 09/19/2016 Patient Education: Patient Medication Summary Completed 09/18/2016 Care Plan: MAMMOGRAM BOTH BREASTS LOINC : 32902-0 Pending 09/18/2016 Visit Plan: Discussed that needs [...] 08/24/2016 Appointment: María Elena Appiah WPtel: [address] [place] [address] ACUTE ILLNESS 08/24/2016 Patient Education: Patient Medication Summary Completed 08/24/2016 Patient Education: Patient Medication Summary Completed 08/23/2016 Care Plan: MAMMOGRAM SCREENING LOINC : 2 6347-5 Pending 08/23/2016 Visit Plan: Finish doxycycline Add Breo 100/25 1 p BID for 2 weeks If not improving within next 2 days will get CXR 08/16/2016 Appointment: María Elena Appiah WPtel: [address] [place] [address] ACUTE ILLNESS 08/16/2016 Patient Education: Patient Medication Summary Completed 08/16/2016 Visit Plan: Supportive care. Rest, Fluid s, Tylenol/Motrin prn fever or bodyaches. Notify if worsening symptoms. Doxycyline and Prednisone 08/10/2016 Appointment: María Elena Appiah WPtel: [address] [place] [address] 08/09 lm`sl....confirmed-sp FOLLOW UP 09/2015 Patient Education: Patient Medication Summary Completed 08/10/2016 Visit Plan: Saline nasal flushes prn. Ty lenol/Motrin prn headache. Notify if persists/symptoms worsening. Dexamethasone 8mg IM today May use coricedan and mucinex 08/02/2016 Appointment: María Elena Appiah WPtel: [address] [place] [address] ACUTE ILLNESS 08/02/2016 Patient Education: Patient Medication Summary Completed 08/02/2016 Visit Plan: Cryotherapy as above and lef t forearm lesion removal as above with 5-0 punch biopsy and sent to path Return in 10 days for suture removal 08/01/2016 Appointment: María Elena Appiah WPtel: [address] [place], [place] [id number] 07/31 confirmed`~ OFFICE SURGERY 08/01/2016 Patient Education: Patient Medication Summary Completed 08/01/2016 Visit Plan: Stop clindamycin Check CBC, CMP, ESR now/STAT 07/27/2016 Appointment: María Elena Appiah WPtel: [address] [place] [address] ACUTE ILLNESS 07/27/2016 Patient Education: Patient Medication Summary Completed 07/27/2016 Visit Plan: Update lab and check ABIs to start with Will likely need cardiology evaluation to rule out PVD Clindamycin for 10 days Daily yogurt or probiotic Will return for removal of left arm lesions 07/20/2016 Appointment: María Elena Appiah WPtel: [address] [place], [place] [id number] ACUTE ILLNESS 07/20/2016 Patient Education: Patient Medication Summary Completed 07/20/2016 Patient Education: Patient Medication Summary Completed 07/20/2016 Care Plan: MAMMOGRAM BOTH BREASTS LOINC : 66682-7 Pending 07/20/2016 Care Plan: US EXAM CHEST LOINC : 00647-3 Pending 07/20/2016 Visit Plan: Wound culture collected from left great toe Appearance is somewhat staph like Rx as above Wound cleanser and skin care reviewed May need to add oral antibiotic if sores do not heal or continue to reoccur 07/06/2016 Appointment: Loan Sánchez [address] [place] [address] ACUTE ILLNESS 07/06/2016 Patient Education: Patient Medication Summary Completed 07/06/2016 Appointment: María Elena Appiahtel: [address] [place] [address] [place] INJECTION 05/25/2016 Patient Education: Patient Medication Summary Completed 05/25/2016 Visit Plan: Saline nasal flushes prn. Ty lenol/Motrin prn headache. Notify if persists/symptoms worsening. Dexamethasone and Rocephin given 04/26/2016 Appointment: María Elena Appiah WPtel: [address] [place] [address] ACUTE ILLNESS 04/26/2016 Patient Education: Patient Medication Summary Completed 04/26/2016 Visit Plan: Check CBC, CMP, TSH, FreeT4, HbA1C, estradiol, lipids in AM 03/02/2016 Appointment: María Elena Appiah WPtel: [address] [place] [address] 03/01 lm~sl ACUTE ILLNESS 03/02/2016 Patient Education: Patient Medication Summary Completed 03/02/2016 Visit Plan: Exam is nearly normal Needs to be taking daily antihistamine Would prefer to use oral steroids instead of shot but patient insist that oral steroids cause horrible headaches for her Will given kenalog IM instead 02/09/2016 Appointment: Loan Sánchez [address] [place] [address] ACUTE ILLNESS 02/09/2016 Patient Education: Patient Medication Summary Completed 02/09/2016 Visit Plan: Culture urine Macrobid DC xa nax Trial of Ativan 1mg q HS 01/24/2016 Appointment: María Elena Appiah WPtel: [address] [place] [address] ACUTE ILLNESS 01/24/2016 Patient Education: Patient Medication Summary Completed 01/24/2016 Visit Plan: No steroid or rocephin injec tion warranted Can have oral prednisone Continue current home regimen Needs to follow up with Dr Sanchez if problems persist 12/23/2015 Appointment: Loan Sánchez [address] [place] [address] ACUTE ILLNESS 12/23/2015 Patient Education: Patient Medication Summary Completed 12/23/2015 Visit Plan: Saline nasal flushes prn. Ty lenol/Motrin prn headache. Notify if persists/symptoms worsening. Kenalog 40mg IM today 12/08/2015 Appointment: María Elena Appiah WPtel: [address] [place] [address] 12/06 confirmed~sl ACUTE ILLNESS 12/08/2015 Patient Education: Patient Medication Summary Completed 12/08/2015 Appointment: María Elena Appiah WPtel: [address] [place] [address] ACUTE ILLNESS 11/18/2015 Patient Education: Patient Medication Summary Completed 10/11/2015 Appointment: María Elena Appiah WPtel: [address] [place] [address] [place] INJECTION 10/07/2015 Patient Education: Patient Medication Summary Completed 10/07/2015 Visit Plan: Check renal arterial doppler s and ECHO Change amlodopine to lotrel 5/20mg q HS Will need stress test as well Check CMP, uric acid, ESR 10/06/2015 Appointment: María Elena Appiah WPtel: [address] [place] [address] ACUTE ILLNESS 10/06/2015 Patient Education: Patient Medication Summary Completed 10/06/2015 Patient Education: [facility] - [employer] - Amlodipine Besylate - 18-64 - Dynamic Portal ID Completed 10/06/2015 Appointment: María Elena Appiah WPtel: [address] [place] [address] FOLLOW UP 09/22/2015 Visit Plan: Cephalexin 500 mg PO bid Mery ly topical Mupirocin to lesions on left lateral neck and face Follow-up in one week. Sooner if symptoms worsen 09/14/2015 Appointment: June Flores WPtel: [address] [place] [address] ACUTE ILLNESS 09/14/2015 Patient Education: Patient Medication Summary Completed 09/14/2015 Visit Plan: Change bystolic to bedtime d osing and amlodopine to morning dosing Cryotherapy as above to AKs 09/07/2015 Appointment: María Elena Appiah WPtel: [address] [place], [place] [phone] 09/06 appointment made and confirmed ~sl FOLLOW UP 09/07/2015 Patient Education: Patient Medication Summary Completed 09/07/2015 Visit Plan: Increase bystolic back to 20 mg daily but will split and take 10mg in AM and 10mg in PM Stress Reducers 08/18/2015 Appointment: María Elena Appiah WPtel: [address] [place], [place] [phone] 08/17/15 appt confirmed cn ACUTE ILLNESS 08/18 Patient Education: Patient Medication Summary Completed 08/18/2015 Appointment: María Elena Appiah WPtel: [address] [place] [address] BP CHECK 07/07/2015 Patient Education: Patient Medication Summary Completed 07/07/2015 Appointment: María Elena Appiah WPtel: [address] [place] [address] BP CHECK 06/24/2015 Patient Education: Patient Medication Summary Completed 06/24/2015 Appointment: María Elena Appiah WPtel: [address] [place] [address] [place] BP CHECK 06/21/2015 Patient Education: Patient Medication Summary Completed 06/21/2015 Visit Plan: Lab discussed Continue curre nt meds and lifestyle modification Recheck lab in 6mos 06/16/2015 Appointment: María Elena Appiah WPtel: [address] [place], [place] [phone] 06/15 confirmed FOLLOW UP 06/16/2015 Patient Education: Patient Medication Summary Completed 06/16/2015 Patient Education: Patient Medication Summary Completed 06/15/2015 Visit Plan: Increase cymbalta to 60mg q HS Keep clonidine at current dose Recheck 2weeks Change xanax to klonopin 06/02/2015 Appointment: María Elena Appiah WPtel: [address] [place], [place] [phone] 06/02 lm FOLLOW UP 06/02/2015 Patient Education: Patient Medication Summary Completed 06/02/2015 Appointment: María Elena Appiah WPtel: [address] [place] [address] ACUTE ILLNESS 05/24/2015 Visit Plan: Increase clonidine to 0.2mg q HS Add cymbalta 30mg q HS Recheck 2weeks Stress Reducers Check fasting lab Discussed sleep study 05/20/2015 Appointment: María Elena Appiah WPtel: [address] [place] [address] ACUTE ILLNESS 05/20/2015 Patient Education: Patient Medication Summary Completed 05/20/2015 Patient Education: [facility] - [employer] - Cymbalta - 18-64 - Dynamic Portal ID Completed 05/20/2015 Appointment: María Elena Appiah WPtel: [address] [place] [address] BP CHECK 05/19/2015 Patient Education: Patient Medication Summary Completed 05/19/2015 Visit Plan: Topical Bactroban alternatin g with topical betamethasone Recheck 2weeks 05/10/2015 Appointment: María Elena Appiah WPtel: [address] [place] [address] 05/07 cn...05/07 appt confirmed OFFICE SURGER Y 05/10/2015 Patient Education: Patient Medication Summary Completed 05/10/2015 [facility]: [facility] [address] Referral Initiated 05/04/2015 Visit Plan: Saline nasal flushes prn. Ty lenol/Motrin prn headache. Notify if persists/symptoms worsening. Depomedrol 40mg IM today 03/16/2015 Appointment: María Elena Appiah WPtel: [address] [place] [address] ACUTE ILLNESS 03/16/2015 Patient Education: Patient Medication Summary Completed 03/16/2015 Appointment: María Elena Appiah WPtel: [address] [place] [address] ER Follow UP 03/09/2015 Visit Plan: Cryotherapy to lesions as ab ove 10/27/2014 Appointment: María Elena Appiah WPtel: [address] [place] [address] OFFICE SURGERY 10/27/2014 Patient Education: Patient Medication Summary Completed 10/27/2014 Appointment: June Flores WPtel: [address] [place] [address] ACUTE ILLNESS 09/11/2014 Patient Education: Patient Medication Summary Completed 09/11/2014 Visit Plan: Lab discussed Lipitor 10mg d aily Coenzyme Q-10 400mg daily Vitamin D3 5000u daily Recheck lipids with LFTs in 3mos then fwup 08/31/2014 Appointment: María Elena Appiah WPtel: [address] [place] [address] 08/28 voicemail FOLLOW UP 08/31/2014 Patient Education: Patient Medication Summary Completed 08/31/2014 Appointment: María Elena Appiah WPtel: [address] [place] [address] US LAB 08/27/2014 Appointment: María Elena Appiah WPtel: [address] [place], [place] [phone] [place] LAB 08/27/2014 Patient Education: Patient Medication Summary Completed 08/27/2014 Appointment: María Elena Appiah WPtel: [address] [place] [address] ACUTE ILLNESS 07/23/2014 Appointment: María Elena Appiah WPtel: [address] [place] [address] ACUTE ILLNESS 07/21/2014 Patient Education: Patient Medication Summary Completed 07/21/2014 Visit Plan: Kenalog 40mg IM today Contin ue narendra and singulair Add Flonase 07/15/2014 Appointment: María Elena Appiah WPtel: [address] [place] [address] ACUTE ILLNESS 07/15/2014 Appointment: María Elena Appiah WPtel: [address] [place], [place] [id number] ACUTE ILLNESS 07/15/2014 Patient Education: Patient Medication Summary Completed 07/15/2014 Visit Plan: Will do metolazone 2.5mg prn with 6 potassium and see if causes as severe cramping Trial of of seroquel XR 50mg q PM with evening meal and let us know how works 05/18/2014 Appointment: María Elena Appiah WPtel: [address] [place], [place] [phone] 05/15 left message FOLLOW UP 05/18/2014 Patient Education: Patient Medication Summary Completed 05/18/2014 Appointment: María Elena Appiah WPtel: [address] [place], [place] [phone] [place] LAB 05/14/2014 Patient Education: Patient Medication Summary Completed 05/14/2014 Appointment: María Elena Appiah WPtel: [address] [place], [place] [phone] [place] INJECTION 04/22/2014 Visit Plan: Kimo and Miranda today a nd finish abx given from urgent care 04/21/2014 Appointment: María Elena Appiah WPtel: [address] [place], [place] [phone] [place] INJECTION 04/21/2014 Patient Education: Patient Medication Summary Completed 04/21/2014 Appointment: June Flores WPtel: [address] [place], [place] [phone] ACUTE ILLNESS 03/04/2014 Patient Education: Patient Medication Summary Completed 03/04/2014 Appointment: María Elena Appiah WPtel: [address] [place], [place] [phone] [place] INJECTION 02/27/2014 Patient Education: Patient Medication Summary Completed 02/27/2014 Visit Plan: Cryotherapy as above to all lesions Patient wants to try no meds for insomnia for a while and see how goes 01/13/2014 Appointment: María Elena Appiah WPtel: [address] [place] [address] OFFICE SURGERY 01/13/2014 Patient Education: Patient Medication Summary Completed 01/13/2014 Visit Plan: Stop Melatonin Stop Soma Tri al of trazadone 75mg q HS See ENT for possible tubes as has had chronic ETD and serous otitis media with numerous steroids 12/24/2013 Appointment: María Elena Appiah WPtel: [address] [place] [address] ACUTE ILLNESS 12/24/2013 Patient Education: Patient Medication Summary Completed 12/24/2013 Visit Plan: Saline nasal flushes prn. Ty lenol/Motrin prn headache. Notify if persists/symptoms worsening. 11/12/2013 Appointment: María Elena Appiah WPtel: [address] [place] [address] ACUTE ILLNESS 11/12/2013 Patient Education: Patient Medication Summary Completed 11/12/2013 Appointment: María Elena Appiah WPtel: [address] [place] [address] ACUTE ILLNESS 10/21/2013 Patient Education: Patient Medication Summary Completed 10/21/2013 Visit Plan: Sleep hygiene and sleep rout ine Melatonin 10mg q HS Support stockings and observe 09/22/2013 Appointment: María Elena Appiah WPtel: [address] [place] [address] ACUTE ILLNESS 09/22/2013 Patient Education: Patient Medication Summary Completed 09/22/2013 Appointment: June Flores WPtel: [address] [place] [address] ACUTE ILLNESS 08/27/2013 Patient Education: Patient Medication Summary Completed 08/27/2013 Visit Plan: Proceed with CT scan of head /neck Proceed with occipital nerve injections Butrans 20mcg patch weekly until can get into see Dr. Mcdonough for injections 08/04/2013 Appointment: María Elena Appiahtel: [address] [place] [address] FOLLOW UP 08/04/2013 Patient Education: Patient Medication Summary Completed 08/04/2013 Visit Plan: OMT done Daily neck stretche s, moist heat Increase Celebrex to 200mg BID Add flexeril 07/23/2013 Appointment: María Elena Appiah WPtel: [address] [place] [address] 07/22 voicemail FOLLOW UP 07/23/2013 Patient Education: Patient Medication Summary Completed 07/23/2013 Appointment: María Elena Appiah WPtel: [address] [place] [address] ACUTE ILLNESS 06/23/2013 Patient Education: Patient Medication Summary Completed 06/23/2013 Appointment: María Elena Appiah WPtel: [address] [place] [address] ACUTE ILLNESS 05/26/2013 Patient Education: Patient Medication Summary Completed 05/26/2013 Visit Plan: Decrease clonidine to 0.1mg TID If BP remains stable consider decreasing amlodopine Prednisone for 5 days BP check in 1mo 04/16/2013 Appointment: María Elena Appiah WPtel: [address] [place] [address] 04/14 pt called and confirmed appt FOLLOW UP 04/16/2013 Patient Education: Patient Medication Summary Completed 04/16/2013 Appointment: María Elena Appiah WPtel: [address] [place] [address] ACUTE ILLNESS 03/05/2013 Patient Education: Patient Medication Summary Completed 03/05/2013 Visit Plan: Pt has MARIA ELENA on with Dr. Mcdonough Continue Butrans patch Refill Hydrocodone early tomorrow 12/23/2012 Appointment: María Elena Appiah WPtel: [address] [place] [address] FOLLOW UP 12/23/2012 Patient Education: Patient Medication Summary Completed 12/23/2012 Appointment: Lashawn Eckert WPtel: [address] [place] [address] ACUTE ILLNESS 12/16/2012 Patient Education: Patient Medication Summary Completed 12/16/2012 Visit Plan: Proceed with updated MRI of LS spine Continue gabapentin and add soma and diclofenac Will likely need to go for another epidural 12/09/2012 Appointment: María Elena Appiah WPtel: [address] [place] [address] ACUTE ILLNESS 12/09/2012 Patient Education: Patient Medication Summary Completed 12/09/2012 Visit Plan: Injection as above Finish me drol dose pack Chiropracter this afternoon 12/04/2012 Appointment: María Elena Appiah WPtel: [address] [place] [address] ACUTE ILLNESS 12/04/2012 Patient Education: Patient Medication Summary Completed 12/04/2012 Appointment: Mary Tillman WPtel: [address] [place] [address] FOLLOW UP 11/22/2012 Patient Education: Patient Medication Summary Completed 11/22/2012 Appointment: María Elena Appiah WPtel: [address] [place] [address] ACUTE ILLNESS 11/21/2012 Patient Education: Patient Medication Summary Completed 11/21/2012 Appointment: María Elena Appiah WPtel: [address] [place] [address] BP CHECK 11/07/2012 Patient Education: Patient Medication Summary Completed 11/07/2012 Visit Plan: reports extra clonidine and extra amlodipine and extra alprazalam. extra Ketolorac and promethazine last night. Bystolic 10 mg QAM and will continue all other blood pressure meds. Pt. encouraged to rest and hydrate. Discussed stroke and PA symptoms. Pt. instructed to seek ER eval if symptoms worsen or headache persists. Pt. agrees to ER eval/EMS transport if symptoms worsen. BP re-check. 10/29/2012 Appointment: Lashawn Eckert WPtel: [address] [place] [address] ACUTE ILLNESS 10/29/2012 Patient Education: Patient Medication Summary Completed 10/29/2012 Appointment: María Elena Appiah WPtel: [address] [place] [address] ACUTE ILLNESS 10/14/2012 Patient Education: Patient Medication Summary Completed 10/14/2012 Appointment: María Elena Appiah WPtel: [address] [place] [address] 09/27/2012 Patient Education: Patient Medication Summary Completed 09/27/2012 Appointment: María Elena Appiah WPtel: [address] [place] [address] ACUTE ILLNESS 09/25/2012 Patient Education: Patient Medication Summary Completed 09/25/2012 Appointment: María Elena Appiah WPtel: [address] [place] [address] BP CHECK 09/24/2012 Appointment: María Elena Appiah WPtel: [address] [place] [address] ACUTE ILLNESS 08/29/2012 Patient Education: Patient Medication Summary Completed 08/29/2012 Visit Plan: Cryotherapy as above See Karlos m for right ear lesion--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 ACUTE ILLNESS 05/06/2012 Patient Education: Patient Medication Summary Completed 05/06/2012 Visit Plan: Pt wants to hold on any furt her sleep medications 04/03/2012 Appointment: María Elena Appiah WPtel: [address] [place] [address] FOLLOW UP 04/03/2012 Patient Education: Patient Medication Summary Completed 04/03/2012 Appointment: María Elena Appiah WPtel: [address] [place] [address] FOLLOW UP 03/19/2012 Patient Education: Patient Medication Summary Completed 03/19/2012 Appointment: María Elena Appiah WPtel: [address] [place] [address] BP CHECK 02/22/2012 Patient Education: Patient Medication Summary Completed 02/22/2012 Appointment: María Elena Appiah WPtel: [address] [place] [address] BP CHECK 02/21/2012 Patient Education: Patient Medication Summary Completed 02/21/2012 Visit Plan: Doxycycline and bactroban fo r foot Supportive care on ankles and knees Add norvasc for BP 02/20/2012 Appointment: María Elena Appiah WPtel: [address] [place], [place] [id number] ER Follow UP 02/20/2012 Patient Education: Patient Medication Summary Completed 02/20/2012 Appointment: María Elena Appiah WPtel: [address] [place] [address] ACUTE ILLNESS 01/30/2012 Patient Education: Patient Medication Summary Completed 01/30/2012 Appointment: María Elena Appiah WPtel: [address] [place], [place] [id number] ACUTE ILLNESS 01/24/2012 Patient Education: Patient Medication Summary Completed 01/24/2012 Visit Plan: Daily back stretches, moist heat, Biofreeze prn OMT done 01/10/2012 Appointment: María Elena Appiahtel: [address] [place] [address] ACUTE ILLNESS 01/10/2012 Patient Education: Patient Medication Summary Completed 01/10/2012 Appointment: María Elena Appiahtel: [address] [place] [address] FOLLOW UP 12/11/2011 Patient Education: Patient Medication Summary Completed 12/11/2011 Appointment: María Elena Appiah WPtel: [address] [place] [address] ACUTE ILLNESS 11/09/2011 Patient Education: Patient Medication Summary Completed 11/09/2011 Appointment: María Elena Appiahtel: [address] [place] [address] ACUTE ILLNESS 09/13/2011 Patient Education: Patient Medication Summary Completed 09/13/2011 Visit Plan: Check CBC, TSH, Free T4, CMP , ESR, Vit D, B12 now Start Prednisone today 08/31/2011 Appointment: María Elena Appiahtel: [address] [place] [address] ACUTE ILLNESS 08/31/2011 Patient Education: Patient Medication Summary Completed 08/31/2011 Appointment: María Elena Appiahtel: [address] [place] [address] US INJECTION 07/20/2011 Patient Education: Patient Medication Summary Completed 07/20/2011 Visit Plan: Continue current meds Monite r BP Cont stretches from PT 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 07/06/2011 Appointment: María Elena Appiahtel: [address] [place] [address] FOLLOW UP 07/06/2011 Patient Education: Patient Medication Summary Completed 07/06/2011 Appointment: María Elena Appiahtel: [address] [place], [place] [phone] BP CHECK 06/06/2011 Patient Education: Patient Medication Summary Completed 06/06/2011 Visit Plan: Add Bystolic at 2.5mg QAM Ad d Robaxin 750mg 2 po q HS BP check in 2wks 05/22/2011 Appointment: María Elena Appiah WPtel: [address] [place], [place] [phone] FOLLOW UP 05/22/2011 Patient Education: Patient Medication Summary Completed 05/22/2011 Appointment: María Elena Appiah WPtel: [address] [place], [place] [id number] ER Follow UP 05/09/2011 Patient Education: Patient Medication Summary Completed 05/09/2011 Appointment: María Elena Appiah WPtel: [address] [place], [place] [address] FOLLOW UP 02/22/2011 Visit Plan: Rx written for Hydrocodone 1 0/325mg #240 See Ortho 02/14/2011 Appointment: María Elena Appiah WPtel: [address] [place], [place] [phone] OMT 02/14/2011 Patient Education: Patient Medication [...] work. 02/03/2011 Appointment: Lashawn Eckert WPtel: [address] [place], [place] [id number] ACUTE ILLNESS 02/03/2011 Patient Education: Patient Medication Summary Completed 02/03/2011 Visit Plan: OMT done Cont daily stretche s 01/31/2011 Appointment: María Elena Appiahtel: [address] [place] [address] ACUTE ILLNESS 01/31/2011 Patient Education: Patient Medication Summary Completed 01/31/2011 Visit Plan: Continue pain meds OMT done Proceed with PT No work this summer01/25/2011 Appointment: María Elena Appiah WPtel: [address] [place] [address] ACUTE ILLNESS 01/25/2011 Patient Education: Patient Medication Summary Completed 01/25/2011 Visit Plan: Start PT Long discussion abo ut getting pain meds from only and can only have max of 4grams of tylenol per day Change to Hydrocodone 10/325mg 1- 2 po TID prn pain--#180 called to [facility] 01/18/2011 Appointment: María Elena Appiah WPtel: [address] [place] [address] FOLLOW UP 01/18/2011 Patient Education: Patient Medication Summary Completed 01/18/2011 Visit Plan: Daily back stretches, moist heat, Biofreeze prn 11/29/2010 Appointment: María Elena Appiahtel: [address] [place] [address] ER Follow UP 11/29/2010 Patient Education: Patient Medication Summary Completed 11/29/2010 Visit Plan: Saline nasal flushes prn. Ty lenol/Motrin prn headache. Notify if persists/symptoms worsening. Finish augmentin Add Medrol Dose Pack 10/10/2010 Appointment: María Elena Appiahtel: [address] [place] [address] ACUTE ILLNESS 10/10/2010 Patient Education: Patient Medication Summary Completed 10/10/2010 Visit Plan: Cryotherapy x3 to multiple l esions on both forearms 07/19/2010 Appointment: María Elena Appiah: [address] [place], [place] [phone] [place] OFFICE SURGERY 07/19/2010 Patient Education: Patient Medication Summary Completed 07/19/2010 Appointment: María Elena Appiah WPtel: [address] [place], [place] [phone] [place] BP CHECK 07/06/2010 Patient Education: Patient Medication Summary Completed 07/06/2010 Appointment: María Elena Appiah WPtel: [address] [place], [place] [phone] [place] BP CHECK 06/30/2010 Patient Education: Patient Medication Summary Completed 06/30/2010 Appointment: María Elena Appiah WPtel: [address] [place], [place] [phone] [place] BP CHECK 06/20/2010 Patient Education: Patient Medication Summary Completed 06/20/2010 Visit Plan: Change Diovan to Exforge 160 /5mg QD OMT done to thoracics BP check in 2wks 06/07/2010 Appointment: María Elena Appiah WPtel: [address] [place] [address] FOLLOW UP 06/07/2010 Patient Education: Patient Medication Summary Completed 06/07/2010 Appointment: María Elena Appiah WPtel: [address] [place], [place] [phone] [place] BP CHECK 06/03/2010 Patient Education: Patient Medication Summary Completed 06/03/2010 Appointment: María Elena Appiah WPtel: [address] [place], [place] [phone] [place] BP CHECK 06/01/2010 Patient Education: Patient Medication Summary Completed 06/01/2010 Visit Plan: Irritated skin tags to left neck x2 excised at base with scissors and base cauterized 05/30/2010 Appointment: María Elena Appiah WPtel: [address] [place], [place] [phone] OFFICE SURGERY 05/30/2010 Patient Education: Patient Medication Summary Completed 05/30/2010 Visit Plan: Saline nasal flushes prn. Ty lenol/Motrin prn headache. Notify if persists/symptoms worsening. Restart Nasonex Has allergy testing set for May 25 04/27/2010 Appointment: María Elena Appiahtel: [address] [place] [address] ACUTE ILLNESS 04/27/2010 Patient Education: Patient Medication Summary Completed 04/27/2010 Visit Plan: Saline nasal flushes prn. Ty lenol/Motrin prn headache. Notify if persists/symptoms worsening. Omnaris BID plus injections 04/05/2010 Appointment: María Elena Appiahtel: [address] [place] [address] ACUTE ILLNESS 04/05/2010 Patient Education: Patient Medication Summary Completed 04/05/2010 Visit Plan: Saline nasal flushes prn. Ty lenol/Motrin prn headache. Notify if persists/symptoms worsening. 03/09/2010 Appointment: María Elena Appiah WPtel: [address] [place] [address] ACUTE ILLNESS 03/09/2010 Patient Education: Patient Medication Summary Completed 03/09/2010 Visit Plan: Cont Clonidine as is Cont Pr emarin Fwup with surgery as scheduled 03/03/2010 Appointment: María Elena Appiahtel: [address] [place] [address] FOLLOW UP 03/03/2010 Patient Education: Patient Medication Summary Completed 03/03/2010 Visit Plan: Check Pelvic US now Discusse d Dand C vs Hysterectomy 01/17/2010 Appointment: María Elena Appiahtel: [address] [place] [address] ACUTE ILLNESS 01/17/2010 Patient Education: Patient Medication Summary Completed 01/17/2010 Visit Plan: Check fasting lab and schedu le Mammogram 2gm Na Diet Trial of Ambien 10mg qhs Fwup pending lab results 12/27/2009 Appointment: María Elena Appiah WPtel: [address] [id number] [place] ESTABLISHED PATIENT 12/27/2009 Patient Education: Patient Medication Summary Completed 12/27/2009 Referral: Canelo Overton WPtel: [address] [id number] [place] Referral Initiated Referral: Philipp Flores WPtel: [address] [id number] [place] Referral Appointment Requested Instructions Comment . [...] Pt has MARIA ELENA on with Dr. Mcdonouhg Continue Butrans patch Refill Hydrocodone early tomorrow [...] to rest and hydrate. Discussed stroke and PA symptoms. Pt. instructed to seek ER eval [...]
--- OUTSIDE RECORDS SUMMARY | 2020-03-13 05:46 | XMS REPORT | CCD ---
Author Author Gale Appiah D.O. 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 Name Role Phone María Elena Appiah D.O., PP Unavailable CCM Unavailable Summary Purpose Interface Exchange Insurance Providers Payer name Policy type / Coverage type Covered libertarian ID Effective Begin Date Effective End Date [facility] Commercial Insurance [id number] Unknown Family History Family History data not found Social History Social History Element Codes Description Effective Dates Tobacco history SNOMED CT: [id number] Never smoker 05/22/2011 Allergies, Adverse Reactions, Alerts [...] Start Date Stop Date Status Fill Instructions duloxetine 60 mg capsule,delayed release RxNorm: 971265 1 Capsu le(s) Oral QD 10/17/2019 04/13/2020 Active celecoxib 200 mg capsule RxNorm: 550801 1 Capsule(s) Or al two times a day as needed for pain 10/17/2019 01/14/2020 Active lisinopril 20 mg tablet RxNorm: 735231 1 Tablet(s) Oral QD 10/17/19 20 04/13/2020 Active gabapentin 300 mg capsule RxNorm: 354525 1 Capsule(s) O ral every night at bedtime 10/17/2019 01/15/2020 Active Singulair 10 mg tablet RxNorm: 425346 1 Tablet(s) Oral QD 10/17/2019 04/14/2020 Active Klor-Con 8 mEq tablet,extended release RxNorm: 902259 1 Tablet(s) Oral two times a day 10/17/2019 11/16/2019 Active metoprolol tartrate 100 mg tablet RxNorm: 934319 1 Tabl et(s) Oral two times a day 10/17/2019 04/13/2020 Active clonidine HCl 0.1 mg tablet RxNorm: 191999 1 Tablet(s) Oral fou r times a day 10/17/2019 04/13/2020 Active Januvia 100 mg tablet RxNorm: 110159 1 Tablet(s) Oral QD 10/17/2019 No Stop Date Active Lipitor 10 mg tablet RxNorm: 497252 1 Tablet(s) Oral QD 10/17/2019 Active Steglatro 15 mg tablet RxNorm: 9518168 1 Tablet(s) Oral QD 10/17/19 No Stop Date Active Glyxambi 25 mg-5 mg tablet RxNorm: 0248220 1 Tablet(s) Oral QD 01/202010/16/2019 Inactive Patient will bring in copay discount card as well Glyxambi 25 mg-5 mg tablet RxNorm: 8066501 1 Tablet(s) Oral QD 01/202010/14/2019 Inactive Patient will bring in copay discount card as well Keflex 500 mg capsule RxNorm: 717467 1 Capsule(s) Oral two time s a day 10/07/2019 10/14/2019 Inactive Premarin 1.25 mg tablet RxNorm: 583742 1 Tablet(s) Oral QD 09/30/1906/25/2020 Active hydrocodone 10 mg-acetaminophen 325 mg tablet RxNorm: 518404 1-2 Tablet(s) Oral three times a day as needed for pain 09/30/2019 09/30/2019 Inactive baclofen 10 mg tablet RxNorm: 414168 TAKE ONE TABLET BY MOUTH THREE TIMES A DAY NEEDED 09/19/2019 No Stop Date Active gabapentin 300 mg capsule RxNorm: 722016 TAKE ONE CAPSU LE BY MOUTH EVERY NIGHT AT BEDTIME 09/19/2019 10/16/2019 Inactive Klor-Con 8 mEq tablet,extended release RxNorm: 449382 T FARRUKH ONE TABLET BY MOUTH TWICE A DAY 1 Tablet(s) Oral two times a day 09/19/2019 10/16/2019 [place] [facility] hydrocodone 10 mg-acetaminophen 325 mg tablet RxNorm: 748627 1-2 Tablet(s) Oral three times a day as needed for pain 09/19/2019 09/29/2019 Inactive triamterene 75 mg-hydrochlorothiazide 50 mg tablet RxNorm: 3 63464 TAKE ONE TABLET BY MOUTH DAILY 09/11/2019 No Stop Date Active allopurinol 300 mg tablet RxNorm: 128648 TAKE ONE TABLET BY LOPEZ TH DAILY 09/11/2019 No Stop Date Active duloxetine 60 mg capsule,delayed release RxNorm: 402922 TAKE ONE CAPSULE BY MOUTH DAILY 09/11/2019 10/16/2019 Inactive Lipitor 10 mg tablet RxNorm: 364501 TAKE ONE TABLET BY MOUTH AT BEDTIME 09/11/2019 10/16/2019 Inactive lisinopril 20 mg tablet RxNorm: 918318 TAKE ONE TABLET BY MOUTH DAILY .... THIS REPLACE 10MG TABLETS 09/11/2019 10/16/2019 Inactive celecoxib 200 mg capsule RxNorm: 144432 TAKE ONE CAPSUL E BY MOUTH TWICE A DAY NEEDED FOR PAIN 09/11/2019 10/16/2019 Inactive clonidine HCl 0.1 mg tablet RxNorm: 650607 TAKE ONE TAB LET BY MOUTH FOUR TIMES A DAY 09/11/2019 10/16/2019 Inactive doxepin 25 mg capsule RxNorm: 3018379 1 Capsule(s) Oral every night at bedtime as needed for sleep 08/21/2019 11/18/2019 Active hydrocodone 10 mg-acetaminophen 325 mg tablet RxNorm: 557048 1-2 Tablet(s) PO TID 08/12/2019 09/29/2019 Inactive as needed for pa in - Previous quantity #240, will start dosing for #180 in April 2011 per Doctor Td. Medrol (Dustin) 4 mg tablets in a dose pack RxNorm: 502386 Tablet(s) Oral As Directed 07/21/2019 09/29/2019 Inactive Premarin 1.25 mg tablet RxNorm: 379514 1 Tablet(s) Oral QD 07/02/20 19 09/29/2019 Inactive hydrocodone 10 mg-acetaminophen 325 mg tablet RxNorm: 763427 1-2 Tablet(s) PO TID 07/01/2019 08/11/2019 Inactive as needed for pa in - Previous quantity #240, will start dosing for #180 in April 2011 per Doctor Td. gabapentin 300 mg capsule RxNorm: 032946 1 Capsule(s) PO QHS 201809/18/2019 Inactive celecoxib 200 mg capsule RxNorm: 019838 1 Capsule(s) Or al two times a day as needed for pain 06/27/2019 06/27/2019 Inactive furosemide 40 mg tablet RxNorm: 681432 TAKE ONE TABLET BY MOUTH EVERY MORNING NEEDED FOR EDEMA . TAKE WITH POTASSIUM 06/24/2019 No Stop Date Active doxepin 25 mg capsule RxNorm: 5071358 TAKE ONE CAPSULE B Y MOUTH EVERY NIGHT AT BEDTIME NEEDED FOR SLEEP 06/24/2019 08/20/2019 Inactive Singulair 10 mg tablet RxNorm: 057675 TAKE ONE TABLET BY MOUTH JOSÉ Y 06/24/2019 10/16/2019 Inactive lisinopril 20 mg tablet RxNorm: 487822 TAKE ONE TABLET BY MOUTH DAILY .... THIS REPLACE 10MG TABLETS 06/24/2019 09/10/2019 Inactive nystatin-triamcinolone 100,000 unit/g-0.1 % topical cream Rx Norm: 0378154 1 Application Topical two times a day 06/12/2019 06/19/2019 Inactive apply BID for 1 week nystatin-triamcinolone 100,000 unit/g-0.1 % topical cream Rx Norm: 9673378 1 Application Topical two times a day 06/12/2019 06/11/2019 Inactive apply BID for 1 week hydrocodone 10 mg-acetaminophen 325 mg tablet RxNorm: 307018 1-2 Tablet(s) PO QID as needed for pain MUST LAST 30 DAYS 05/28/2019 06/26/2019 Inactiv e (Response to an electronic controlled substance refill request - RxReferenceNumber: [id number]) baclofen 20 mg tablet RxNorm: 938051 1 Tablet(s) PO TID as needed for muscle spasm 05/19/2019 05/27/2019 Inactive gabapentin 300 mg capsule RxNorm: 986720 1 Capsule(s) PO QHS 201805/27/2019 Inactive lisinopril 20 mg tablet RxNorm: 663547 1 Tablet(s) PO Q D TAKE ONE TABLET BY MOUTH DAILY, REPLACES 10 MG DOSE 05/19/2019 06/23/2019 Inactive doxepin 25 mg capsule RxNorm: 6981685 TAKE ONE CAPSULE B Y MOUTH EVERY NIGHT AT BEDTIME NEEDED FOR SLEEP 05/16/2019 06/14/2019 Inactive lisinopril 20 mg tablet RxNorm: 958897 TAKE ONE TABLET BY MOUTH DAILY, REPLACES 10 MG DOSE 05/16/2019 05/18/2019 Inactive Singulair 10 mg tablet RxNorm: 993972 TAKE ONE TABLET BY MOUTH JOSÉ Y 05/16/2019 06/14/2019 Inactive gabapentin 300 mg capsule RxNorm: 453003 1 Capsule(s) PO QHS 201805/04/2019 Inactive estropipate 1.5 mg tablet RxNorm: 211243 1 Tablet(s) PO QD 05/05/2005/27/2019 Inactive estropipate 1.5 mg tablet RxNorm: 762293 1 Tablet(s) PO QD 05/05/20 19 05/04/2019 Inactive gabapentin 300 mg capsule RxNorm: 832914 1 Capsule(s) PO QHS 201805/18/2019 Inactive hydrocodone 10 mg-acetaminophen 325 mg tablet RxNorm: 665136 1-2 Tablet(s) PO QID as needed for pain MUST LAST 30 DAYS 04/25/2019 05/24/2019 Inactiv e (Response to an electronic controlled substance refill request - RxReferenceNumber: [id number]) cyclobenzaprine 10 mg tablet RxNorm: 260026 TAKE ONE TA BLET BY MOUTH THREE TIMES A DAY NEEDED FOR MUSCLE SPASMS 04/24/2019 05/18/2019 Inactive metoprolol tartrate 100 mg tablet RxNorm: 367148 TAKE O NE TABLET BY MOUTH TWICE A DAY 04/24/2019 10/16/2019 Inactive Lyrica 75 mg capsule RxNorm: 694216 1 Capsule(s) PO QHS 03/25/2019 Inactive duloxetine 60 mg capsule,delayed release RxNorm: 441218 TAKE ONE CAPSULE BY MOUTH DAILY 03/21/2019 05/19/2019 Inactive triamterene 75 mg-hydrochlorothiazide 50 mg tablet RxNorm: 3 97159 TAKE ONE TABLET BY MOUTH DAILY 03/21/2019 05/19/2019 Inactive Klor-Con 8 mEq tablet,extended release RxNorm: 046266 T FARRUKH ONE TABLET BY MOUTH TWICE A DAY 03/21/2019 09/18/2019 Inactive Lipitor 10 mg tablet RxNorm: 357622 TAKE ONE TABLET BY MOUTH AT BEDTIME 03/21/2019 09/10/2019 Inactive clonidine HCl 0.1 mg tablet RxNorm: 311208 TAKE ONE TAB LET BY MOUTH FOUR TIMES A DAY 03/21/2019 05/19/2019 Inactive allopurinol 300 mg tablet RxNorm: 483110 TAKE ONE TABLET BY LOPEZ TH DAILY 03/21/2019 05/19/2019 Inactive hydrocodone 10 mg-acetaminophen 325 mg tablet RxNorm: 424121 1-2 Tablet(s) PO QID as needed for pain MUST LAST 30 DAYS 02/28/2019 03/29/2019 Inactiv e (Response to an electronic controlled substance refill request - [facility]: [id number]) furosemide 40 mg tablet RxNorm: 938395 TAKE ONE TABLET BY MOUTH EVERY MORNING NEEDED FOR EDEMA . TAKE WITH POTASSIUM 02/21/2019 03/22/2019 Inactive cyclobenzaprine 10 mg tablet RxNorm: 544586 TAKE ONE TA BLET BY MOUTH THREE TIMES A DAY NEEDED FOR MUSCLE SPASMS 02/21/2019 04/21/2019 Inactive lisinopril 20 mg tablet RxNorm: 180326 TAKE ONE TABLET BY MOUTH DAILY, REPLACES 10 MG DOSE 02/21/2019 05/15/2019 Inactive doxepin 25 mg capsule RxNorm: 0430678 TAKE ONE CAPSULE B Y MOUTH EVERY NIGHT AT BEDTIME NEEDED FOR SLEEP 02/21/2019 05/15/2019 Inactive nystatin 100,000 unit/gram topical cream RxNorm: 400469 APPLY TO AFFECTED AREA(S) TWO TIMES A DAY 02/21/2019 03/22/2019 Inactive estradiol 1 mg tablet RxNorm: 150867 2 Tablet(s) PO QD replaces premarin 01/22/2019 05/04/2019 Inactive lisinopril 20 mg tablet RxNorm: 401647 TAKE ONE TABLET BY MOUTH DAILY, REPLACES 10 MG DOSE 01/20/2019 02/18/2019 Inactive cyclobenzaprine 10 mg tablet RxNorm: 151081 TAKE ONE TA BLET BY MOUTH THREE TIMES A DAY NEEDED FOR MUSCLE SPASMS 01/20/2019 02/18/2019 Inactive metoprolol tartrate 100 mg tablet RxNorm: 247599 TAKE O NE TABLET BY MOUTH TWICE A DAY 01/20/2019 02/18/2019 Inactive cyclobenzaprine 10 mg tablet RxNorm: 975491 TAKE ONE TA BLET BY MOUTH THREE TIMES A DAY NEEDED FOR MUSCLE SPASMS 12/19/2018 01/17/2019 Inactive lisinopril 20 mg tablet RxNorm: 998683 TAKE ONE TABLET BY MOUTH DAILY, REPLACES 10 MG DOSE 12/19/2018 01/17/2019 Inactive duloxetine 60 mg capsule,delayed release RxNorm: 315895 TAKE ONE CAPSULE BY MOUTH DAILY 12/19/2018 01/17/2019 Inactive Lipitor 10 mg tablet RxNorm: 859963 TAKE ONE TABLET BY MOUTH AT BEDTIME 12/19/2018 01/17/2019 Inactive cyclobenzaprine 10 mg tablet RxNorm: 277625 1 Tablet(s) PO TID as needed for muscle spasm 11/19/2018 12/18/2018 Inactive Singulair 10 mg tablet RxNorm: 160937 1 Tablet(s) PO QD 11/19/2018 Inactive lisinopril 20 mg tablet RxNorm: 602056 TAKE ONE TABLET BY MOUTH DAILY, REPLACES 10 MG DOSE 11/15/2018 12/18/2018 Inactive hydrocodone 10 mg-acetaminophen 325 mg tablet RxNorm: 637505 1-2 Tablet(s) PO QID as needed for pain MUST LAST 30 DAYS 11/13/2018 12/12/2018 Inactiv e (Response to an electronic controlled substance refill request - RxReferenceNumber: [id number]) nystatin 100,000 unit/gram topical cream RxNorm: 610627 APPLY TO AFFECTED AREA(S) TWO TIMES A DAY 10/23/2018 11/06/2018 Inactive lisinopril 20 mg tablet RxNorm: 953650 1 Tablet(s) PO QD replac es 10mg dose 10/18/2018 11/14/2018 Inactive hydrocodone 10 mg-acetaminophen 325 mg tablet RxNorm: 718136 1-2 Tablet(s) QID as needed for pain MUST LAST 30 DAYS 10/08/2018 11/06/2018 Inactive (Response to an electronic controlled substance refill request - RxReferenceNumber: [id number]) lisinopril 10 mg tablet RxNorm: 535416 1 Tablet(s) PO QD 10/03/2018 0 01/21/2019 Inactive Celebrex 200 mg capsule RxNorm: 926637 TAKE ONE CAPSULE BY MOUT H TWICE A DAY 09/30/2018 05/04/2019 Inactive cyclobenzaprine 10 mg tablet RxNorm: 937637 TAKE ONE TA BLET BY MOUTH THREE TIMES A DAY NEEDED FOR MUSCLE SPASMS 09/30/2018 11/18/2018 Inactive doxepin 25 mg capsule RxNorm: 9165948 TAKE ONE CAPSULE B Y MOUTH EVERY NIGHT AT BEDTIME NEEDED 09/05/2018 10/16/2018 Inactive omeprazole 40 mg capsule,delayed release RxNorm: 271156 TAKE ONE CAPSULE BY MOUTH DAILY 09/05/2018 01/21/2019 Inactive furosemide 40 mg tablet RxNorm: 891850 TAKE ONE TABLET BY MOUTH EVERY MORNING NEEDED FOR EDEMA . TAKE WITH POTASSIUM 09/05/2018 11/03/2018 Inactive phentermine 37.5 mg tablet RxNorm: 431652 1 Tablet(s) PO QAM 201701/21/2019 Inactive doxepin 25 mg capsule RxNorm: 3882163 1 Capsule(s) PO QH S as needed for sleep TAKE ONE CAPSULE BY MOUTH EVERY NIGHT AT BEDTIME NEEDED 08/27/2018 09/04/2018 Inactive Keflex 500 mg capsule RxNorm: 661388 1 Capsule(s) PO TID 08/09/2018 1 10/19/2017 Inactive Diflucan 100 mg tablet RxNorm: 200293 1 Tablet(s) PO QD 08/09/2018 Inactive Premarin 1.25 mg tablet RxNorm: 777028 2 Tablet(s) PO QD 08/09/2018 0 05/04/2019 Inactive Zofran ODT 4 mg disintegrating tablet RxNorm: 560239 1 Tablet(s) PO Q4H as needed for nausea 08/09/2018 01/21/2019 Inactive metoprolol tartrate 100 mg tablet RxNorm: 848464 TAKE O NE TABLET BY MOUTH TWICE A DAY 2018 10/04/2018 Inactive doxepin 25 mg capsule RxNorm: 8324062 TAKE ONE CAPSULE B Y MOUTH EVERY NIGHT AT BEDTIME NEEDED 2018 08/26/2018 Inactive cyclobenzaprine 10 mg tablet RxNorm: 341546 TAKE ONE TA BLET BY MOUTH THREE TIMES A DAY NEEDED FOR MUSCLE SPASMS 2018 09/29/2018 Inactive hydrocodone 10 mg-acetaminophen 325 mg tablet RxNorm: 992695 1-2 Tablet(s) QID as needed for pain MUST LAST 30 DAYS 07/29/2018 08/27/2018 Inactive (Response to an electronic controlled substance refill request - RxReferenceNumber: [id number]) nystatin 100,000 unit/gram topical powder RxNorm: 496658 Applic ation TOP BID 07/22/2018 08/04/2018 Inactive doxepin 25 mg capsule RxNorm: 9907633 1 Capsule(s) PO QHS as needed 07/22/2018 08/05/2018 Inactive triamterene 75 mg-hydrochlorothiazide 50 mg tablet RxNorm: 3 10780 TAKE ONE TABLET BY MOUTH DAILY 07/05/2018 10/02/2018 Inactive duloxetine 60 mg capsule,delayed release RxNorm: 406018 TAKE ONE CAPSULE BY MOUTH DAILY 07/05/2018 09/02/2018 Inactive Klor-Con 8 mEq tablet,extended release RxNorm: 387074 T FARRUKH ONE TABLET BY MOUTH TWICE A DAY 07/05/2018 10/02/2018 Inactive Lipitor 10 mg tablet RxNorm: 623170 TAKE ONE TABLET BY MOUTH AT BEDTIME 07/05/2018 09/02/2018 Inactive allopurinol 300 mg tablet RxNorm: 342305 TAKE ONE TABLET BY LOEPZ TH DAILY 07/05/2018 10/02/2018 Inactive clonidine HCl 0.1 mg tablet RxNorm: 857374 TAKE ONE TAB LET BY MOUTH FOUR TIMES A DAY 07/05/2018 10/02/2018 Inactive hydrocodone 10 mg-acetaminophen 325 mg tablet RxNorm: 260205 1-2 Tablet(s) QID as needed for pain MUST LAST 30 DAYS 06/28/2018 07/27/2018 Inactive (Response to an electronic controlled substance refill request - RxReferenceNumber: [id number]) MediHoney (calcium alginate-honey) 4" X 5" bandage RxNorm: 1 Application TOP QD 06/17/2018 06/26/2018 Inactive honey-hydrocolloid dressing 4" X 5" RxNorm: 1 Application TOP QD 06/17/2018 07/16/2018 Inactive furosemide 40 mg tablet RxNorm: 373334 TAKE ONE TABLET BY MOUTH EVERY MORNING NEEDED FOR EDEMA . TAKE WITH POTASSIUM 06/10/2018 07/09/2018 Inactive This is a refill request. hydrocodone 10 mg-acetaminophen 325 mg tablet RxNorm: 605336 1-2 Tablet(s) QID as needed for pain MUST LAST 30 DAYS 05/30/2018 06/27/2018 Inactive (Response to an electronic controlled substance refill request - RxReferenceNumber: [id number]) acyclovir 800 mg tablet RxNorm: 060395 1 Tablet(s) PO 5x day 201705/22/2018 Inactive Premarin 1.25 mg tablet RxNorm: 247327 1-2 Tablet(s) PO QD 09/01/27 1807/13/2018 Inactive cyclobenzaprine 10 mg tablet RxNorm: 721490 1 Tablet(s) PO TID as needed for muscle spasm 05/09/2018 05/08/2018 Inactive Medrol (Dustin) 4 mg tablets in a dose pack RxNorm: 448838 Tablet(s) PO As Directed 05/02/2018 06/16/2018 Inactive hydrocodone 10 mg-acetaminophen 325 mg tablet RxNorm: 250303 1-2 Tablet(s) QID as needed for pain MUST LAST 30 DAYS 04/30/2018 05/29/2018 Inactive (Response to an electronic controlled substance refill request - RxReferenceNumber: [id number]) duloxetine 60 mg capsule,delayed release RxNorm: 823267 TAKE ONE CAPSULE BY MOUTH DAILY 04/16/2018 05/15/2018 Inactive Celebrex 200 mg capsule RxNorm: 807477 TAKE ONE CAPSULE BY MOUT H TWICE A DAY 04/16/2018 06/14/2018 Inactive Singulair 10 mg tablet RxNorm: 216959 TAKE ONE TABLET BY MOUTH JOSÉ Y 04/16/2018 11/19/2018 Inactive Lipitor 10 mg tablet RxNorm: 062184 TAKE ONE TABLET BY MOUTH AT BEDTIME 04/16/2018 05/15/2018 Inactive hydrocodone 10 mg-acetaminophen 325 mg tablet RxNorm: 751590 1-2 Tablet(s) QID as needed for pain MUST LAST 30 DAYS 03/29/2018 04/27/2018 Inactive (Response to an electronic controlled substance refill request - RxReferenceNumber: [id number]) cyclobenzaprine 10 mg tablet RxNorm: 208800 1 Tablet(s) PO TID as needed for muscle spasm 03/18/2018 05/09/2018 Inactive omeprazole 40 mg capsule,delayed release RxNorm: 486070 1 Capsu le(s) PO QD 02/26/2018 08/24/2018 Inactive hydrocodone 10 mg-acetaminophen 325 mg tablet RxNorm: 000744 1-2 Tablet(s) QID as needed for pain MUST LAST 30 DAYS 02/26/2018 03/27/2018 Inactive (Response to an electronic controlled substance refill request - RxReferenceNumber: [id number]) metoprolol tartrate 100 mg tablet RxNorm: 907284 1 Tablet(s) PO BID 02/18/2018 08/05/2018 Inactive Lyrica 75 mg capsule RxNorm: 175018 1 Capsule(s) PO QHS 01/30/2018 Inactive phentermine 37.5 mg tablet RxNorm: 771086 1 Tablet(s) PO QAM 201706/16/2018 Inactive hydrocodone 10 mg-acetaminophen 325 mg tablet RxNorm: 816417 1-2 Tablet(s) QID as needed for pain MUST LAST 30 DAYS 01/29/2018 02/25/2018 Inactive (Response to an electronic controlled substance refill request - RxReferenceNumber: [id number]) Klor-Con 8 mEq tablet,extended release RxNorm: 518833 1 Tablet( s) PO BID 01/14/2018 07/04/2018 Inactive allopurinol 300 mg tablet RxNorm: 198129 1 Tablet(s) PO QD 01/15/20 18 07/04/2018 Inactive Lipitor 10 mg tablet RxNorm: 455135 1 Tablet(s) PO QHS 01/14/201812/2017 Inactive triamterene 75 mg-hydrochlorothiazide 50 mg tablet RxNorm: 3 67364 1 Tablet(s) PO QD 01/14/2018 07/04/2018 Inactive hydrocodone 10 mg-acetaminophen 325 mg tablet RxNorm: 771701 1-2 Tablet(s) QID as needed for pain MUST LAST 30 DAYS 12/27/2017 01/25/2018 Inactive (Response to an electronic controlled substance refill request - RxReferenceNumber: [id number]) Onglyza 5 mg tablet RxNorm: 021369 1 Tablet(s) PO QD 12/18/201701/29 Inactive metformin 500 mg tablet RxNorm: 740960 1 Tablet(s) PO BID 12/11/2017 12/10/2017 Inactive metformin 500 mg tablet RxNorm: 336065 1 Tablet(s) PO BID 12/11/2017 12/17/2017 Inactive furosemide 40 mg tablet RxNorm: 555625 1 Tablet(s) PO Q AM prn edema--take with potassium 12/11/2017 06/08/2018 Inactive cyclobenzaprine 10 mg tablet RxNorm: 345926 1 Tablet(s) PO TID as needed for muscle spasm 12/11/2017 03/18/2018 Inactive hydrocodone 10 mg-acetaminophen 325 mg tablet RxNorm: 516720 1-2 Tablet(s) QID as needed for pain MUST LAST 30 DAYS 10/23/2017 11/21/2017 Inactive (Response to an electronic controlled substance refill request - RxReferenceNumber: [id number]) Lipitor 10 mg tablet RxNorm: 194155 1 Tablet(s) PO QHS 10/16/201703/2018 Inactive cyclobenzaprine 10 mg tablet RxNorm: 436446 1 Tablet(s) PO TID as needed for muscle spasm 10/09/2017 12/10/2017 Inactive hydroxyzine HCl 25 mg tablet RxNorm: 790521 1 Tablet(s) PO BID as needed for anxiety 09/20/2017 01/29/2018 Inactive Effexor XR 75 mg capsule,extended release RxNorm: 443993 1 Caps ule(s) PO QD 09/20/2017 01/29/2018 Inactive metoprolol tartrate 100 mg tablet RxNorm: 023786 1 Tablet(s) PO BID 08/20/2017 02/18/2018 Inactive baclofen 20 mg tablet RxNorm: 306305 1 Tablet(s) PO TID as needed for muscle spasm 08/20/2017 01/21/2019 Inactive clonidine HCl 0.1 mg tablet RxNorm: 804064 1 Tablet(s) PO QID 08/2005/16/2018 Inactive Seroquel 25 mg tablet RxNorm: 759425 1 Tablet(s) PO QHS 08/17/2017 Inactive Seroquel 25 mg tablet RxNorm: 640236 1 Tablet(s) PO QHS 08/17/2017 Inactive Diflucan 100 mg tablet RxNorm: 869299 TAKE ONE TABLET BY MOUTH JOSÉ Y 07/25/2017 08/07/2017 Inactive hydrocodone 10 mg-acetaminophen 325 mg tablet RxNorm: 624991 1-2 Tablet(s) QID as needed for pain MUST LAST 30 DAYS 07/19/2017 08/17/2017 Inactive (Response to an electronic controlled substance refill request - RxReferenceNumber: [id number]) clindamycin 300 mg capsule RxNorm: 714290 1 Capsule(s) PO TID 07/1907/28/2017 Inactive clotrimazole-betamethasone 1 %-0.05 % topical cream RxNorm: 294289 Application TOP BID to elbow rash 07/19/2017 06/16/2018 Inactive Singulair 10 mg tablet RxNorm: 154376 Tablet(s) TAKE ONE TABLET BY MOUTH DAILY 07/18/2017 04/13/2018 Inactive triamterene 75 mg-hydrochlorothiazide 50 mg tablet RxNorm: 3 67031 1 Tablet(s) PO QD 07/18/2017 01/14/2018 Inactive Celebrex 200 mg capsule RxNorm: 374543 Capsule(s) TAKE ONE CAPSULE BY MOUTH TWICE A DAY 07/18/2017 10/15/2017 Inactive hydrocodone 10 mg-acetaminophen 325 mg tablet RxNorm: 440429 1-2 Tablet(s) QID as needed for pain MUST LAST 30 DAYS 06/19/2017 07/18/2017 Inactive (Response to an electronic controlled substance refill request - RxReferenceNumber: [id number]) hydrocodone 10 mg-acetaminophen 325 mg tablet RxNorm: 053377 1-2 Tablet(s) QID as needed for pain MUST LAST 30 DAYS 06/19/2017 06/18/2017 Inactive (Response to an electronic controlled substance refill request - RxReferenceNumber: [id number]) baclofen 20 mg tablet RxNorm: 018599 1 Tablet(s) PO TID as needed for muscle spasm 06/18/2017 08/20/2017 Inactive Medrol (Dustin) 4 mg tablets in a dose pack RxNorm: 200403 Tablet(s) PO As Directed 06/05/2017 07/18/2017 Inactive omeprazole 40 mg capsule,delayed release RxNorm: 276583 1 Capsu le(s) PO QD 04/20/2017 10/16/2017 Inactive Premarin 1.25 mg tablet RxNorm: 159900 1-2 Tablet(s) PO QD 04/11/20 17 05/15/2018 Inactive duloxetine 60 mg capsule,delayed release RxNorm: 045171 1 Capsu le(s) PO QD 04/11/2017 09/19/2017 Inactive furosemide 40 mg tablet RxNorm: 447956 1 Tablet(s) PO Q AM prn edema--take with potassium 04/11/2017 12/11/2017 Inactive Klor-Con 8 mEq tablet,extended release RxNorm: 515249 1 Tablet( s) PO BID 04/11/2017 01/14/2018 Inactive Lipitor 10 mg tablet RxNorm: 896744 1 Tablet(s) PO QHS 04/11/201702/2018 Inactive amlodipine 5 mg-benazepril 20 mg capsule RxNorm: 074011 1 Capsu le(s) PO QD 04/11/2017 01/29/2018 Inactive allopurinol 300 mg tablet RxNorm: 541412 1 Tablet(s) PO QD 04/11/20 17 01/14/2018 Inactive clonidine HCl 0.1 mg tablet RxNorm: 141958 1 Tablet(s) PO QID 04/0508/19/2017 Inactive baclofen 20 mg tablet RxNorm: 190710 1 Tablet(s) PO TID as needed for muscle spasm 04/02/2017 06/18/2017 Inactive Premarin 1.25 mg tablet RxNorm: 884516 1-2 Tablet(s) PO QD 03/20/20 17 04/10/2017 Inactive hydrocodone 10 mg-acetaminophen 325 mg tablet RxNorm: 222979 1-2 Tablet(s) QID as needed for pain MUST LAST 30 DAYS 03/14/2017 01/21/2019 Inactive (Response to an electronic controlled substance refill request - RxReferenceNumber: [id number]) metoprolol tartrate 100 mg tablet RxNorm: 662723 1 Tablet(s) PO BID 02/12/2017 08/20/2017 Inactive hydrocodone 10 mg-acetaminophen 325 mg tablet RxNorm: 600419 1-2 Tablet(s) QID as needed for pain MUST LAST 30 DAYS 02/08/2017 03/09/2017 Inactive (Response to an electronic controlled substance refill request - RxReferenceNumber: [id number]) metoprolol tartrate 100 mg tablet RxNorm: 974490 TAKE O NE TABLET BY MOUTH TWICE A DAY 01/11/2017 02/12/2017 Inactive metoprolol tartrate 100 mg tablet RxNorm: 569236 1 Tablet(s) PO BID 12/18/2016 12/17/2016 Inactive metoprolol tartrate 100 mg tablet RxNorm: 500181 1 Tablet(s) PO BID 12/18/2016 01/10/2017 Inactive furosemide 40 mg tablet RxNorm: 455994 1 Tablet(s) PO Q AM prn edema--take with potassium 12/13/2016 02/10/2017 Inactive amitriptyline 100 mg tablet RxNorm: 532955 1 Tablet(s) PO QHS 11/2812/12/2016 Inactive baclofen 20 mg tablet RxNorm: 561252 1 Tablet(s) PO TID as needed for muscle spasm 11/14/2016 04/01/2017 Inactive triamterene 75 mg-hydrochlorothiazide 50 mg tablet RxNorm: 3 35273 1 Tablet(s) PO QD 11/14/2016 11/13/2016 Inactive metolazone 2.5 mg tablet RxNorm: 988989 TAKE ONE TABLET BY MOUTH DAILY NEEDED FOR EDEMA 11/14/2016 12/12/2016 Inactive triamterene 75 mg-hydrochlorothiazide 50 mg tablet RxNorm: 3 02079 1 Tablet(s) PO QD 11/14/2016 07/18/2017 Inactive amitriptyline 50 mg tablet RxNorm: 272385 TAKE ONE TABL ET BY MOUTH AT BEDTIME NEEDED FOR SLEEP 11/14/2016 11/27/2016 Inactive Cymbalta 60 mg capsule,delayed release RxNorm: 756635 1 Capsule (s) PO QHS 11/14/2016 12/12/2016 Inactive clonidine HCl 0.1 mg tablet RxNorm: 090568 1 Tablet(s) PO QID 11/1304/04/2017 Inactive amitriptyline 50 mg tablet RxNorm: 663957 1 Tablet(s) P O QHS as needed for sleep 11/01/2016 11/27/2016 Inactive duloxetine 60 mg capsule,delayed release RxNorm: 081846 TAKE ONE CAPSULE BY MOUTH DAILY 10/20/2016 01/17/2017 Inactive allopurinol 300 mg tablet RxNorm: 761900 TAKE ONE TABLET BY LOPEZ TH DAILY 10/20/2016 01/16/2017 Inactive Lyrica 75 mg capsule RxNorm: 071200 TAKE ONE CAPSULE BY MOUTH EVERY NIGHT AT BEDTIME 10/20/2016 12/10/2016 Inactive Klor-Con 8 mEq tablet,extended release RxNorm: 733107 T FARRUKH ONE TABLET BY MOUTH TWICE A DAY 10/20/2016 01/17/2017 Inactive Celebrex 200 mg capsule RxNorm: 946221 TAKE ONE CAPSULE BY MOUT H TWICE A DAY 10/20/2016 07/18/2017 Inactive Bystolic 10 mg tablet RxNorm: 948054 TAKE ONE TABLET BY MOUTH EVERY NIGHT AT BEDTIME 10/20/2016 12/17/2016 Inactive amlodipine 5 mg-benazepril 20 mg capsule RxNorm: 401045 TAKE ONE CAPSULE BY MOUTH EVERY NIGHT AT BEDTIME -- TO REPLACE AMLODOPINE 10/20/20162016 Inactive Lipitor 10 mg tablet RxNorm: 218787 TAKE ONE TABLET BY MOUTH EVERY NIGHT AT BEDTIME 10/20/2016 01/17/2017 Inactive alprazolam 0.5 mg tablet RxNorm: 058519 3 Tablet(s) PO QHS as needed for sleep/anxiety 09/20/2016 10/31/2016 Inactive Tamiflu 75 mg capsule RxNorm: 072628 1 Capsule(s) PO QD 09/19/2016 Inactive Lyrica 75 mg capsule RxNorm: 551078 1 Capsule(s) PO QHS 09/19/2016 Inactive prednisone 20 mg tablet RxNorm: 586079 1 Tablet(s) PO QD 08/10/2016 1 10/17/2015 Inactive doxycycline hyclate 100 mg capsule RxNorm: 3729093 1 Capsule(s) PO BID 08/10/2016 08/19/2016 Inactive Medrol (Dustin) 4 mg tablets in a dose pack RxNorm: 972409 Tablet(s) PO As Directed 07/31/2016 08/22/2016 Inactive Singulair 10 mg tablet RxNorm: 352134 TAKE ONE TABLET BY MOUTH JOSÉ Y 07/27/2016 07/18/2017 Inactive hydrocodone 10 mg-acetaminophen 325 mg tablet RxNorm: 199651 1-2 Tablet(s) QID as needed for pain MUST LAST 30 DAYS 07/26/2016 08/24/2016 Inactive (Response to an electronic controlled substance refill request - RxReferenceNumber: [id number]) alprazolam 0.5 mg tablet RxNorm: 299165 3 Tablet(s) PO QHS as needed for anxiety or sleep 07/26/2016 09/20/2016 Inactive clindamycin 300 mg capsule RxNorm: 806597 1 Capsule(s) PO TID 07/2007/29/2016 Inactive Diflucan 100 mg tablet RxNorm: 578268 1 Tablet(s) PO QD 07/20/2016 Inactive Levaquin 500 mg tablet RxNorm: 976275 1 Tablet(s) PO QD 07/17/2016 Inactive Levaquin 500 mg tablet RxNorm: 977232 1 Tablet(s) PO QD 07/10/2016 Inactive Levaquin 500 mg tablet RxNorm: 142432 1 Tablet(s) PO QD 07/10/2016 Inactive mupirocin 2 % topical ointment RxNorm: 821023 TOP Apply topically to affected areas twice daily 07/06/2016 09/18/2016 Inactive Singulair 10 mg tablet RxNorm: 086031 TAKE ONE TABLET BY MOUTH JOÉS Y 06/21/2016 01/21/2019 Inactive alprazolam 0.5 mg tablet RxNorm: 918521 TAKE THREE TABL ETS BY MOUTH AT BEDTIME NEEDED FOR SLEEP OR STRESS 05/22/2016 06/20/2016 Inactive triamterene 75 mg-hydrochlorothiazide 50 mg tablet RxNorm: 3 91426 1 Tablet(s) PO QD 04/26/2016 10/21/2016 Inactive Premarin 1.25 mg tablet RxNorm: 933188 1-2 Tablet(s) PO QD 04/26/20 16 03/20/2017 Inactive Klor-Con 8 mEq tablet,extended release RxNorm: 078051 1 Tablet( s) PO BID 04/26/2016 10/19/2016 Inactive Celebrex 200 mg capsule RxNorm: 589032 1 Capsule(s) PO BID TAKE ONE CAPSULE BY MOUTH EVERY DAY 04/26/2016 10/19/2016 Inactive Lipitor 10 mg tablet RxNorm: 228552 1 Tablet(s) PO QHS 04/26/201605/2017 Inactive allopurinol 300 mg tablet RxNorm: 985161 1 Tablet(s) PO QD TAKE ONE TABLET BY MOUTH EVERY DAY 04/26/2016 10/19/2016 Inactive amlodipine 5 mg-benazepril 20 mg capsule RxNorm: 795456 1 Capsule(s) PO QHS replaces amlodopine 04/26/2016 10/19/2016 Inactive duloxetine 60 mg capsule,delayed release RxNorm: 560658 1 Capsu le(s) PO QD 04/26/2016 10/19/2016 Inactive Bystolic 10 mg tablet RxNorm: 287504 1 Tablet(s) PO QHS 04/26/2016 Inactive Singulair 10 mg tablet RxNorm: 060296 1 Tablet(s) PO QD TAKE ONE TABLET BY MOUTH DAILY 04/26/2016 06/20/2016 Inactive clonidine HCl 0.1 mg tablet RxNorm: 408461 1 Tablet(s) PO QID 04/2610/22/2016 Inactive hydrocodone 10 mg-acetaminophen 325 mg tablet RxNorm: 856861 1-2 Tablet(s) QID as needed for pain TAKE ONE TO TWO TABLETS BY MOUTH FOUR TIMES A DAY . MUST LAST 30 DAYS 03/31/2016 04/29/2016 Inactive (Response to an electronic controlled substance refill request - RxReferenceNumber: [id number]) Klor-Con 8 mEq tablet,extended release RxNorm: 454996 T FARRUKH ONE TABLET BY MOUTH TWICE A DAY 03/24/2016 09/29/2019 Inactive prednisone 20 mg tablet RxNorm: 111581 1 Tablet(s) PO QD 03/09/2016 0 03/08/2016 Inactive prednisone 20 mg tablet RxNorm: 367102 1 Tablet(s) PO QD 03/09/2016 0 03/13/2016 Inactive alprazolam 0.5 mg tablet RxNorm: 544475 3 Tablet(s) PO QHS as needed for sleep/stress 03/02/2016 01/21/2019 Inactive mupirocin 2 % topical ointment RxNorm: 813815 TOP twice daily to affected areas of face and neck 02/21/2016 04/25/2016 Inactive clonidine HCl 0.1 mg tablet RxNorm: 066625 TAKE ONE TAB LET BY MOUTH FOUR TIMES A DAY 02/15/2016 09/29/2019 Inactive clonidine HCl 0.1 mg tablet RxNorm: 557033 1 Tablet(s) PO QID 02/1404/25/2016 Inactive Premarin 1.25 mg tablet RxNorm: 203126 1-2 Tablet(s) PO QD 02/15/20 16 03/15/2016 Inactive Klor-Con 8 mEq tablet,extended release RxNorm: 065347 T FARRUKH ONE TABLET BY MOUTH TWICE A DAY 02/15/2016 03/15/2016 Inactive potassium chloride ER 20 mEq tablet,extended release(part/cr yst) RxNorm: 750958 2 Tablet(s) PO BID 02/15/2016 03/15/2016 Inactive Macrobid 100 mg capsule RxNorm: 743146 1 Capsule(s) PO BID 01/24/20 16 01/30/2016 Inactive prednisone 20 mg tablet RxNorm: 611306 Take 3tabs PO QD x 2 days, then 2 tabs PO QD x 2 days, then 1 tab PO QD x 2 days, then 1/2 tab PO QDy x 2 days 12/23/2015 04/25/2016 Inactive Klor-Con 8 mEq tablet,extended release RxNorm: 523967 T FARRUKH ONE TABLET BY MOUTH TWICE A DAY 12/20/2015 02/14/2016 Inactive alprazolam 1 mg tablet RxNorm: 715971 1 1/2 Tablet(s) PO QHS 201501/23/2016 Inactive nystatin 100,000 unit/gram topical cream RxNorm: 218338 APPLY TO AFFECTED AREA(S) TWO TIMES A DAY 11/30/2015 12/14/2015 Inactive Singulair 10 mg tablet RxNorm: 286599 TAKE ONE TABLET BY MOUTH JOSÉ Y 11/18/2015 04/25/2016 Inactive allopurinol 300 mg tablet RxNorm: 545124 1 Tablet(s) PO QD TAKE ONE TABLET BY MOUTH EVERY DAY 10/26/2015 04/22/2016 Inactive Singulair 10 mg tablet RxNorm: 723691 TAKE ONE TABLET BY MOUTH JOSÉ Y 10/26/2015 11/17/2015 Inactive duloxetine 60 mg capsule,delayed release RxNorm: 719981 1 Capsu le(s) PO QD 10/26/2015 04/22/2016 Inactive triamterene 75 mg-hydrochlorothiazide 50 mg tablet RxNorm: 3 34388 1 Tablet(s) PO QD 10/26/2015 11/14/2016 Inactive potassium chloride ER 20 mEq tablet,extended release(part/cr yst) RxNorm: 054169 2 Tablet(s) PO BID 10/26/2015 02/14/2016 Inactive Lipitor 10 mg tablet RxNorm: 175194 1 Tablet(s) PO QHS 10/26/2015 Inactive amlodipine 5 mg-benazepril 20 mg capsule RxNorm: 297124 1 Capsule(s) PO QHS replaces amlodopine 10/26/2015 04/22/2016 Inactive Bystolic 10 mg tablet RxNorm: 824664 1 Tablet(s) PO QHS 10/26/2015 Inactive amlodipine 5 mg-benazepril 20 mg capsule RxNorm: 101527 1 Capsule(s) PO QHS replaces amlodopine 10/06/2015 10/25/2015 Inactive amlodipine 5 mg tablet RxNorm: 158581 1 Tablet(s) PO QHS 09/30/2015 0 04/25/2016 Inactive metolazone 2.5 mg tablet RxNorm: 705328 TAKE ONE TABLET BY MOUTH DAILY NEEDED FOR EDEMA 09/30/2015 01/21/2019 Inactive duloxetine 60 mg capsule,delayed release RxNorm: 524970 1 Capsu le(s) PO QD 09/30/2015 10/25/2015 Inactive cephalexin 500 mg capsule RxNorm: 073108 1 Capsule(s) PO BID 201509/23/2015 Inactive mupirocin 2 % topical ointment RxNorm: 754554 TOP twice daily to affected areas of face and neck 09/14/2015 02/20/2016 Inactive baclofen 20 mg tablet RxNorm: 411642 1 Tablet(s) PO TID as needed for muscle spasm 09/01/2015 11/14/2016 Inactive clonidine HCl 0.1 mg tablet RxNorm: 293165 1 Tablet(s) PO QID 09/0102/14/2016 Inactive alprazolam 1 mg tablet RxNorm: 960175 1 1/2 Tablet(s) PO QHS 201409/09/2015 Inactive baclofen 20 mg tablet RxNorm: 759425 1 Tablet(s) PO TID as needed for muscle spasm 07/23/2015 09/01/2015 Inactive omeprazole 40 mg capsule,delayed release RxNorm: 831153 1 Capsu le(s) PO QD 07/23/2015 04/25/2016 Inactive alprazolam 1 mg tablet RxNorm: 939807 1 1/2 Tablet(s) PO QHS 201408/10/2015 Inactive Bystolic 10 mg tablet RxNorm: 809342 1 Tablet(s) PO BID 06/24/2015 Inactive allopurinol 300 mg tablet RxNorm: 437862 1 Tablet(s) PO QD TAKE ONE TABLET BY MOUTH EVERY DAY 06/23/2015 10/20/2015 Inactive alprazolam 1 mg tablet RxNorm: 416560 1 1/2 Tablet(s) PO QHS 201407/06/2015 Inactive clonidine HCl 0.1 mg tablet RxNorm: 420410 1 Tablet(s) PO QID 06/0209/01/2015 Inactive clonidine HCl 0.1 mg tablet RxNorm: 089668 1 Tablet(s) PO QID 06/0206/01/2015 Inactive Cymbalta 60 mg capsule,delayed release RxNorm: 790137 1 Capsule (s) PO QHS 06/02/2015 08/30/2015 Inactive Cymbalta 60 mg capsule,delayed release RxNorm: 500461 1 Capsule (s) PO QHS 06/02/2015 06/01/2015 Inactive clonidine HCl 0.1 mg tablet RxNorm: 274007 1 Tablet(s) PO TID 05/3106/01/2015 Inactive replaces 0.2mg dose metolazone 2.5 mg tablet RxNorm: 326173 TAKE ONE TABLET BY MOUTH DAILY NEEDED FOR EDEMA 05/21/2015 06/19/2015 Inactive Singulair 10 mg tablet RxNorm: 380345 TAKE ONE TABLET BY MOUTH JOSÉ Y 05/21/2015 10/17/2015 Inactive Cymbalta 30 mg capsule,delayed release RxNorm: 467558 1 Capsule (s) PO QHS 05/20/2015 11/14/2016 Inactive betamethasone valerate 0.1 % topical cream RxNorm: 479357 Appli cation TOP BID 05/10/2015 04/25/2016 Inactive Bactroban 2 % topical ointment RxNorm: 777687 Application TOP BID 0 05/10/2015 06/20/2015 Inactive baclofen 20 mg tablet RxNorm: 170274 1 Tablet(s) PO TID as needed 0 04/26/2015 07/23/2015 Inactive Lipitor 10 mg tablet RxNorm: 800829 1 Tablet(s) PO QHS 04/26/201508/2016 Inactive clonidine HCl 0.1 mg tablet RxNorm: 583960 1 Tablet(s) PO TID 04/2605/30/2015 Inactive replaces 0.2mg dose Klor-Con 8 mEq tablet,extended release RxNorm: 495435 1 Tablet( s) PO BID 04/26/2015 04/25/2016 Inactive metolazone 2.5 mg tablet RxNorm: 330160 1 Tablet(s) PO QD as ne eded for edema 04/26/2015 04/25/2015 Inactive triamterene 75 mg-hydrochlorothiazide 50 mg tablet RxNorm: 3 69318 1 Tablet(s) PO QD 04/26/2015 10/22/2015 Inactive Premarin 1.25 mg tablet RxNorm: 558927 1-2 Tablet(s) PO QD 04/26/20 15 10/22/2015 Inactive Bystolic 10 mg tablet RxNorm: 223456 1 Tablet(s) PO QAM TAKE ONE TABLET BY MOUTH EVERY MORNING 04/23/2015 06/23/2015 Inactive clonidine HCl 0.1 mg tablet RxNorm: 191488 1 Tablet(s) PO TID 03/2304/25/2015 Inactive replaces 0.2mg dose nystatin 100,000 unit/gram topical cream RxNorm: 287358 Applica tion TOP BID 03/23/2015 06/20/2015 Inactive baclofen 20 mg tablet RxNorm: 910008 1 Tablet(s) PO TID as needed 0 03/23/2015 04/25/2015 Inactive Premarin 1.25 mg tablet RxNorm: 140764 1-2 Tablet(s) PO QD 03/23/20 15 04/25/2015 Inactive Klor-Con 8 mEq tablet,extended release RxNorm: 521031 1 Tablet( s) PO BID 03/23/2015 04/25/2015 Inactive cefdinir 300 mg capsule RxNorm: 264797 2 Capsule(s) PO QD 03/16/2015 03/25/2015 Inactive baclofen 20 mg tablet RxNorm: 436419 1 Tablet(s) PO TID as needed 0 03/02/2015 03/22/2015 Inactive allopurinol 300 mg tablet RxNorm: 226247 1 Tablet(s) PO QD TAKE ONE TABLET BY MOUTH EVERY DAY 02/22/2015 05/22/2015 Inactive Klor-Con M20 mEq tablet,extended release RxNorm: 419786 2 Tablet(s) PO BID to use with lasix 02/22/2015 06/20/2015 Inactive clonidine HCl 0.1 mg tablet RxNorm: 733112 1 Tablet(s) PO TID 02/1903/22/2015 Inactive replaces 0.2mg dose Lipitor 10 mg tablet RxNorm: 826159 1 Tablet(s) PO QHS 01/20/201506/2015 Inactive Lipitor 10 mg tablet RxNorm: 280256 1 Tablet(s) PO QHS 01/20/2015 Inactive Singulair 10 mg tablet RxNorm: 733966 1 Tablet(s) PO QD TAKE ONE TABLET BY MOUTH EVERY DAY 11/20/2014 05/18/2015 Inactive Lipitor 10 mg tablet RxNorm: 071984 1 Tablet(s) PO QHS 11/20/201408/2015 Inactive allopurinol 300 mg tablet RxNorm: 059000 1 Tablet(s) PO QD TAKE ONE TABLET BY MOUTH EVERY DAY 11/20/2014 02/16/2015 Inactive Bystolic 10 mg tablet RxNorm: 325779 1 Tablet(s) PO QAM TAKE ONE TABLET BY MOUTH EVERY MORNING 11/20/2014 04/22/2015 Inactive Klor-Con 8 mEq tablet,extended release RxNorm: 322738 1 Tablet( s) PO BID 11/20/2014 02/17/2015 Inactive baclofen 20 mg tablet RxNorm: 883805 1 Tablet(s) PO TID as needed 0 11/20/2014 01/21/2019 Inactive baclofen 20 mg tablet RxNorm: 302655 1 Tablet(s) PO TID as needed 0 10/27/2014 11/19/2014 Inactive baclofen 20 mg tablet RxNorm: 449876 1 Tablet(s) PO TID as needed 0 10/26/2014 03/01/2015 Inactive allopurinol 300 mg tablet RxNorm: 826963 1 Tablet(s) PO QD TAKE ONE TABLET BY MOUTH EVERY DAY 10/26/2014 11/20/2014 Inactive Bystolic 10 mg tablet RxNorm: 484586 1 Tablet(s) PO QAM TAKE ONE TABLET BY MOUTH EVERY MORNING 10/26/2014 11/20/2014 Inactive clonidine HCl 0.1 mg tablet RxNorm: 562435 1 Tablet(s) PO TID 09/2805/27/2019 Inactive replaces 0.2mg dose clonidine HCl 0.1 mg tablet RxNorm: 611749 1 Tablet(s) PO TID 09/2802/18/2015 Inactive replaces 0.2mg dose baclofen 20 mg tablet RxNorm: 834519 1 Tablet(s) PO TID as needed 1 11/01/2013 08/30/2014 Inactive Lipitor 10 mg tablet RxNorm: 824875 1 Tablet(s) PO QHS 08/31/2014 Inactive baclofen 20 mg tablet RxNorm: 134541 1 Tablet(s) PO TID as needed 1 11/01/2013 10/26/2014 Inactive triamterene 75 mg-hydrochlorothiazide 50 mg tablet RxNorm: 3 09018 1 Tablet(s) PO QD 08/31/2014 02/26/2015 Inactive Klor-Con 8 mEq tablet,extended release RxNorm: 163123 1 Tablet( s) PO BID 08/31/2014 11/20/2014 Inactive baclofen 20 mg tablet RxNorm: 062897 1 Tablet(s) PO TID as needed 1 09/30/2013 10/25/2014 Inactive baclofen 20 mg tablet RxNorm: 650025 1 Tablet(s) PO TID as needed 1 09/30/2013 08/31/2014 Inactive omeprazole 40 mg capsule,delayed release RxNorm: 613648 1 Capsu le(s) PO QD 07/21/2014 07/23/2015 Inactive Flonase 50 mcg/actuation nasal spray,suspension RxNorm: 8963 23 1 [place] NASAL BID 07/15/2014 04/09/2017 Inactive hydrocodone 10 mg-acetaminophen 325 mg tablet RxNorm: 334763 1-2 Tablet(s) QID as needed for pain TAKE ONE TO TWO TABLETS BY MOUTH FOUR TIMES A DAY . MUST LAST 30 DAYS 06/30/2014 07/27/2014 Inactive (Response to an electronic controlled substance refill request - RxReferenceNumber: [id number]) baclofen 20 mg tablet RxNorm: 720822 1 Tablet(s) PO TID as needed 1 07/31/2014 Inactive Singulair 10 mg tablet RxNorm: 635284 1 Tablet(s) PO QD TAKE ONE TABLET BY MOUTH EVERY DAY 05/25/2014 11/20/2014 Inactive Bystolic 10 mg tablet RxNorm: 339782 TAKE ONE TABLET BY MOUTH E VERY MORNING 05/25/2014 09/21/2014 Inactive allopurinol 300 mg tablet RxNorm: 082513 1 Tablet(s) PO QD TAKE ONE TABLET BY MOUTH EVERY DAY 05/25/2014 10/21/2014 Inactive baclofen 20 mg tablet RxNorm: 926829 1 Tablet(s) PO TID as needed 0 05/25/2014 06/29/2014 Inactive allopurinol 300 mg tablet RxNorm: 250103 TAKE ONE TABLET BY LOPEZ TH EVERY DAY 05/25/2014 09/21/2014 Inactive Singulair 10 mg tablet RxNorm: 380522 1 Tablet(s) PO QD TAKE ONE TABLET BY MOUTH EVERY DAY 05/25/2014 05/24/2014 Inactive Bystolic 10 mg tablet RxNorm: 918860 1 Tablet(s) PO QAM TAKE ONE TABLET BY MOUTH EVERY MORNING 05/25/2014 10/21/2014 Inactive metolazone 2.5 mg tablet RxNorm: 489658 1 Tablet(s) PO QD as ne eded for edema 05/18/2014 04/25/2015 Inactive Lasix 40 mg tablet RxNorm: 260675 1 Tablet(s) PO QAM s hould take potassium supplementation with this medication 05/14/2014 05/17/2014 Inactive hydrocodone 10 mg-acetaminophen 325 mg tablet RxNorm: 496492 1-2 Tablet(s) QID as needed for pain TAKE ONE TO TWO TABLETS BY MOUTH FOUR TIMES A DAY . MUST LAST 30 DAYS 05/07/2014 06/05/2014 Inactive (Response to an electronic controlled substance refill request - RxReferenceNumber: [id number]) alprazolam 0.5 mg tablet RxNorm: 258914 TAKE ONE TABLET BY MOUTH TWICE A DAY , MUST LAST 30 DAYS 05/07/2014 05/22/2016 Inactive (Response to a n electronic controlled substance refill request - RxReferenceNumber: [id number]) diclofenac sodium 75 mg tablet,delayed release RxNorm: 97034 6 1 Tablet(s) PO BID for pain 04/24/2014 07/20/2014 Inactive Celebrex 200 mg capsule RxNorm: 569364 TAKE ONE CAPSULE BY MOUT H EVERY DAY 04/24/2014 07/20/2014 Inactive alprazolam 0.5 mg tablet RxNorm: 269274 TAKE ONE TABLET BY MOUTH TWICE A DAY , MUST LAST 30 DAYS 03/24/2014 04/22/2014 Inactive (Response to a n electronic controlled substance refill request - RxReferenceNumber: [id number]) diclofenac sodium 75 mg tablet,delayed release RxNorm: 86231 6 1 Tablet(s) PO BID for pain 03/24/2014 04/24/2014 Inactive clonidine HCl 0.1 mg tablet RxNorm: 668784 1 Tablet(s) PO TID 03/2409/28/2014 Inactive replaces 0.2mg dose Klor-Con 8 mEq tablet,extended release RxNorm: 882300 1 Tablet( s) PO BID 02/26/2014 08/31/2014 Inactive diclofenac sodium 75 mg tablet,delayed release RxNorm: 03759 6 1 Tablet(s) PO BID for pain 02/25/2014 03/24/2014 Inactive hydrocodone 10 mg-acetaminophen 325 mg tablet RxNorm: 330155 1-2 Tablet(s) QID as needed for pain TAKE ONE TO TWO TABLETS BY MOUTH FOUR TIMES A DAY . MUST LAST 30 DAYS 02/25/2014 03/26/2014 Inactive (Response to an electronic controlled substance refill request - RxReferenceNumber: [id number]) alprazolam 0.5 mg tablet RxNorm: 289836 Tablet(s) PO BI D as needed for anxiety TAKE ONE TABLET BY MOUTH TWICE A DAY , MUST LAST 30 DAYS 02/25/2014 Inactive (Response to an electronic controlled [place] bstance refill request - RxReferenceNumber: [id number]) [AttnRPh: Saving apply/adjudicate RxGRP:SG20 RxBIN:[id number] RxPCN: ID#:[id number]] alprazolam 0.5 mg tablet RxNorm: 489486 Tablet(s) TAKE ONE TABLET BY MOUTH TWICE A DAY , MUST LAST 30 DAYS 01/27/2014 02/24/2014 Inactive (Respo nse to an electronic controlled substance refill request - RxReferenceNumber: [id number]) [AttnRPh: Saving apply/adjudicate RxGRP:SG20 RxBIN:[id number] RxPCN: ID#:[id number]] hydrocodone 10 mg-acetaminophen 325 mg tablet RxNorm: 666943 1-2 Tablet(s) QID as needed for pain TAKE ONE TO TWO TABLETS BY MOUTH FOUR TIMES A DAY . MUST LAST 30 DAYS 01/27/2014 02/24/2014 Inactive (Response to an electronic controlled substance refill request - RxReferenceNumber: [id number]) alprazolam 0.5 mg tablet RxNorm: 726859 TAKE ONE TABLET BY MOUTH TWICE A DAY , MUST LAST 30 DAYS 01/27/2014 01/26/2014 Inactive (Response to a n electronic controlled substance refill request - RxReferenceNumber: [id number]) Premarin 1.25 mg tablet RxNorm: 095105 1-2 Tablet(s) PO QD 01/28/20 14 07/25/2014 Inactive alprazolam 0.5 mg tablet RxNorm: 746108 TAKE ONE TABLET BY MOUTH TWICE A DAY , MUST LAST 30 DAYS 01/27/2014 01/27/2014 Inactive (Response to a n electronic controlled substance refill request - RxReferenceNumber: [id number]) hydrocodone 10 mg-acetaminophen 325 mg tablet RxNorm: 882407 TAKE ONE TO TWO TABLETS BY MOUTH FOUR TIMES A DAY . MUST LAST 30 DAYS 01/27/20142013 Inactive (Response to an electronic controlled [place] bstance refill request - RxReferenceNumber: [id number]) Celebrex 200 mg capsule RxNorm: 575409 1 Capsule(s) PO QD TAKE ONE CAPSULE BY MOUTH EVERY DAY 12/29/2013 04/27/2014 Inactive hydrocodone 10 mg-acetaminophen 325 mg tablet RxNorm: 196017 1-2 Tablet(s) PO QID as needed for severe pain 12/29/2013 01/27/2014 Inactive allopurinol 300 mg tablet RxNorm: 254535 1 Tablet(s) PO QD TAKE ONE TABLET BY MOUTH EVERY DAY 12/29/2013 05/24/2014 Inactive alprazolam 0.5 mg tablet RxNorm: 909793 TAKE ONE TABLET BY MOUTH TWICE A DAY , MUST LAST 30 DAYS 12/29/2013 01/27/2014 Inactive (Response to a n electronic controlled substance refill request - RxReferenceNumber: [id number]) Celebrex 200 mg capsule RxNorm: 952682 1 Capsule(s) PO QD TAKE ONE CAPSULE BY MOUTH EVERY DAY 12/29/2013 12/29/2013 Inactive Bystolic 10 mg tablet RxNorm: 695856 1 Tablet(s) PO QAM TAKE ONE TABLET BY MOUTH EVERY MORNING 12/29/2013 05/24/2014 Inactive Bystolic 10 mg tablet RxNorm: 139112 1 Tablet(s) PO QAM TAKE ONE TABLET BY MOUTH EVERY MORNING 12/29/2013 12/29/2013 Inactive Singulair 10 mg tablet RxNorm: 857782 1 Tablet(s) PO QD TAKE ONE TABLET BY MOUTH EVERY DAY 12/29/2013 05/25/2014 Inactive hydrocodone 10 mg-acetaminophen 325 mg tablet RxNorm: 424920 TAKE ONE TO TWO TABLETS BY MOUTH FOUR TIMES A DAY . MUST LAST 30 DAYS 12/29/20132013 Inactive (Response to an electronic controlled [place] bstance refill request - RxReferenceNumber: [id number]) Trazadone 75mg Tablet RxNorm: 1 Tablet(s) PO QHS as needed 03/23/2014 Inactive Trazadone 75mg Tablet RxNorm: 1 Tablet(s) PO QHS 12/24/20132014 Inactive Soma 350 mg tablet RxNorm: 156775 Tablet(s) PO TAKE ON E TABLET BY MOUTH THREE TIMES A DAY NEEDED FOR MUSCLE SPASMS. THIS MUST LAST 30 DAYS BETWEEN REFILLS. 12/10/2013 12/22/2013 Inactive (Appended: Cont rolled substance eRx refill - RxReferenceNumber: [id number]) diclofenac sodium 75 mg tablet,delayed release RxNorm: 74045 6 1 Tablet(s) PO BID for pain 12/10/2013 02/24/2014 Inactive allopurinol 300 mg tablet RxNorm: 322541 1 Tablet(s) PO QD 11/20/19 14 12/29/2013 Inactive alprazolam 0.5 mg tablet RxNorm: 540666 2 Tablet(s) PO BID 11/13/19 14 12/29/2013 Inactive prn clonidine 0.1 mg tablet RxNorm: 645971 1 Tablet(s) PO TID 11/12/2013 02/09/2014 Inactive replaces 0.2mg dose Klor-Con M20 mEq tablet,extended release RxNorm: 590499 2 Tablet(s) PO BID to use with lasix 11/12/2013 05/10/2014 Inactive Singulair 10 mg tablet RxNorm: 235817 1 Tablet(s) PO QD 11/12/2013 Inactive hydrocodone 10 mg-acetaminophen 325 mg tablet RxNorm: 806999 1-2 Tablet(s) PO QID as needed for severe pain 11/12/2013 12/28/2013 Inactive Bystolic 10 mg tablet RxNorm: 343462 1 Tablet(s) PO QAM 11/12/2013 Inactive Soma 350 mg tablet RxNorm: 400537 Tablet(s) PO TAKE ON E TABLET BY MOUTH THREE TIMES A DAY NEEDED FOR MUSCLE SPASMS. THIS MUST LAST 30 DAYS BETWEEN REFILLS. 10/13/2013 12/10/2013 Inactive (Appended: Cont rolled substance eRx refill - RxReferenceNumber: [id number]) hydrocodone 10 mg-acetaminophen 325 mg tablet RxNorm: 923630 1-2 Tablet(s) PO QID as needed for severe pain 10/03/2013 11/11/2013 Inactive diclofenac sodium 75 mg tablet,delayed release RxNorm: 83890 8 1 Tablet(s) PO BID for pain 09/11/2013 12/10/2013 Inactive alprazolam 0.5 mg tablet RxNorm: 522237 1 Tablet(s) PO BID May refill on 04/26/13 09/01/2013 10/30/2013 Inactive prn hydrocodone 10 mg-acetaminophen 325 mg tablet RxNorm: 980502 1-2 Tablet(s) PO QID as needed for severe pain 09/01/2013 10/02/2013 Inactive triamterene 75 mg-hydrochlorothiazide 50 mg tablet RxNorm: 3 36283 1 Tablet(s) PO QD 08/04/2013 08/31/2014 Inactive cyclobenzaprine 10 mg tablet RxNorm: 491510 1 Tablet(s) PO TID prn spasm 08/04/2013 08/13/2013 Inactive clonidine 0.1 mg tablet RxNorm: 076041 1 Tablet(s) PO TID 08/04/2013 11/11/2013 Inactive replaces 0.2mg dose cyclobenzaprine 10 mg tablet RxNorm: 508538 1 Tablet(s) PO TID prn spasm 07/23/2013 08/01/2013 Inactive hydrocodone 10 mg-acetaminophen 325 mg tablet RxNorm: 994890 2 1-2 Tablet(s) PO QID as needed for severe pain 06/09/2013 08/07/2013 Inactive Singulair 10 mg tablet RxNorm: 199718 1 Tablet(s) PO QD 05/29/2013 Inactive Klor-Con 8 mEq tablet,extended release RxNorm: 398376 1 Tablet( s) PO BID 05/29/2013 02/26/2014 Inactive allopurinol 300 mg tablet RxNorm: 710228 1 Tablet(s) PO QD 05/29/20 13 11/19/2013 Inactive Bystolic 10 mg tablet RxNorm: 945863 1 Tablet(s) PO QAM take one daily in the morning. 05/29/2013 11/11/2013 Inactive scopolamine 1.5 mg 72 hr Transderm Patch RxNorm: 220751 Application TD Q72H for motion sickness 05/26/2013 07/22/2013 Inactive Soma 350 mg tablet RxNorm: 468666 1 Tablet(s) PO TID as needed for spasm 05/19/2013 10/13/2013 Inactive diclofenac sodium 75 mg tablet,delayed release RxNorm: 41879 8 1 Tablet(s) PO BID for pain 05/14/2013 07/22/2013 Inactive allopurinol 300 mg tablet RxNorm: 712705 1 Tablet(s) PO QD 04/25/20 13 05/28/2013 Inactive alprazolam 0.5 mg tablet RxNorm: 851931 1 Tablet(s) PO BID May refill on 04/26/13 04/25/2013 06/23/2013 Inactive prn Celebrex 200 mg capsule RxNorm: 890134 1 Capsule(s) PO QD 04/16/2013 12/29/2013 Inactive alprazolam 0.5 mg tablet RxNorm: 565730 1 Tablet(s) PO BID May refill on 04/26/13 04/16/2013 04/24/2013 Inactive prn Soma 350 mg tablet RxNorm: 578452 1 Tablet(s) PO TID as needed for spasm 04/16/2013 No Stop Date Active Lasix 40 mg tablet RxNorm: 831986 1 Tablet(s) PO QAM s hould take potassium supplementation with this medication 04/16/2013 06/14/2013 Inactive clonidine 0.1 mg tablet RxNorm: 563417 1 Tablet(s) PO TID 04/16/2013 08/03/2013 Inactive replaces 0.2mg dose prednisone 20 mg tablet RxNorm: 207917 1 Tablet(s) PO BID 04/16/2013 04/20/2013 Inactive diclofenac sodium 75 mg tablet,delayed release RxNorm: 81125 8 1 Tablet(s) PO BID for pain 04/14/2013 05/13/2013 Inactive hydrocodone 10 mg-acetaminophen 325 mg tablet RxNorm: 522368 2 1-2 Tablet(s) PO QID as needed for severe pain 04/14/2013 No Stop Date Active Lasix 40 mg tablet RxNorm: 374078 1 Tablet(s) PO QAM s hould take potassium supplementation with this medication 03/31/2013 04/15/2013 Inactive Celebrex 200 mg capsule RxNorm: 901256 1 Capsule(s) PO QD 03/31/2013 04/15/2013 Inactive alprazolam 0.5 mg tablet RxNorm: 046846 1 Tablet(s) PO BID 03/28/20 13 04/15/2013 Inactive prn hydrocodone 10 mg-acetaminophen 325 mg tablet RxNorm: 225945 2 1-2 Tablet(s) PO QID as needed for severe pain 03/10/2013 No Stop Date Active metformin ER 500 mg 24 hr tablet,extended release RxNorm: 86 1018 1 Tablet(s) PO QD 03/06/2013 07/22/2013 Inactive clindamycin 300 mg capsule RxNorm: 613051 2 Capsule(s) PO TID 03/0503/14/2013 Inactive Zaroxolyn 2.5 mg tablet RxNorm: 294437 1 Tablet(s) PO QAM 03/05/2013 05/19/2015 Inactive amlodipine 10 mg tablet RxNorm: 844884 1 Tablet(s) PO QD 03/03/2013 0 05/25/2013 Inactive Norvasc 10 mg tablet RxNorm: 783472 1 Tablet(s) PO QD 02/28/201307/11 Inactive Celebrex 200 mg capsule RxNorm: 265018 1 Capsule(s) PO QD 02/28/2013 03/30/2013 Inactive diclofenac sodium 75 mg tablet,delayed release RxNorm: 15855 8 1 Tablet(s) PO BID for pain 02/14/2013 03/15/2013 Inactive Soma 350 mg tablet RxNorm: 292901 1 Tablet(s) PO TID as needed for spasm 02/14/2013 No Stop Date Active hydrocodone 10 mg-acetaminophen 325 mg tablet RxNorm: 899111 2 1-2 Tablet(s) PO QID as needed for severe pain 02/14/2013 No Stop Date Active Norvasc 10 mg tablet RxNorm: 807140 1 Tablet(s) PO QD 02/10/201302/09 Inactive Celebrex 200 mg capsule RxNorm: 054918 1 Capsule(s) PO QD 01/27/2013 01/26/2013 Inactive Premarin 1.25 mg tablet RxNorm: 032205 1-2 Tablet(s) PO QD 01/28/20 13 06/25/2013 Inactive alprazolam 0.5 mg tablet RxNorm: 874498 1 Tablet(s) PO BID 01/28/20 13 02/25/2013 Inactive prn amlodipine 5 mg tablet RxNorm: 178359 1 Tablet(s) PO QD 01/27/2013 Inactive Celebrex 200 mg capsule RxNorm: 571359 1 Capsule(s) PO QD 01/27/2013 02/27/2013 Inactive gabapentin 600 mg tablet RxNorm: 942862 1 Tablet(s) PO QHS 01/16/20 13 07/22/2013 Inactive Soma 350 mg tablet RxNorm: 055490 1 Tablet(s) PO TID as needed for spasm 01/15/2013 No Stop Date Active hydrocodone 10 mg-acetaminophen 325 mg tablet RxNorm: 670343 2 1-2 Tablet(s) PO QID as needed for severe pain 01/15/2013 No Stop Date Active Soma 350 mg tablet RxNorm: 979895 1 Tablet(s) PO TID as needed for spasm 01/13/2013 No Stop Date Active alprazolam 0.5 mg tablet RxNorm: 197197 1 Tablet(s) PO BID 12/31/19 13 01/26/2013 Inactive prn diclofenac sodium 75 mg tablet,delayed release RxNorm: 72743 8 1 Tablet(s) PO BID for pain 12/09/2012 01/07/2013 Inactive gabapentin 600 mg tablet RxNorm: 802905 1 Tablet(s) PO QHS 12/10/19 13 01/07/2013 Inactive hydrocodone 10 mg-acetaminophen 325 mg tablet RxNorm: 258535 2 1-2 Tablet(s) PO QID as needed for severe pain 12/02/2012 No Stop Date Active Levaquin 750 mg tablet RxNorm: 387812 1 Tablet(s) PO QD 11/21/2012 Inactive Singulair 10 mg tablet RxNorm: 170138 1 Tablet(s) PO QD 11/11/2012 Inactive clonidine 0.2 mg tablet RxNorm: 301711 1 Tablet(s) PO TID 11/11/2012 04/15/2013 Inactive alprazolam 0.5 mg tablet RxNorm: 584415 1 Tablet(s) PO BID 11/12/19 13 12/10/2012 Inactive prn Klor-Con 8 mEq tablet,extended release RxNorm: 078055 1 Tablet( s) PO BID 11/11/2012 03/04/2013 Inactive hydrocodone 10 mg-acetaminophen 325 mg tablet RxNorm: 584948 2 1-2 Tablet(s) PO QID as needed for severe pain 11/06/2012 No Stop Date Active alprazolam 0.5 mg tablet RxNorm: 401196 1 Tablet(s) PO BID 10/15/19 13 11/10/2012 Inactive prn hydrocodone-acetaminophen 10 mg-325 mg tablet RxNorm: 407243 2 1-2 Tablet(s) PO QID as needed for severe pain 10/10/2012 10/09/2012 Inactive allopurinol 300 mg tablet RxNorm: 285368 1 Tablet(s) PO QD 09/20/19 13 12/18/2012 Inactive alprazolam 0.5 mg tablet RxNorm: 754281 1 Tablet(s) PO BID 09/17/19 13 10/14/2012 Inactive prn hydrocodone-acetaminophen 10 mg-325 mg tablet RxNorm: 430908 2 1-2 Tablet(s) PO QID as needed for severe pain 08/22/2012 08/21/2012 Inactive Norvasc 10 mg tablet RxNorm: 567679 1 Tablet(s) PO QD 08/12/201201/10 Inactive Premarin 1.25 mg tablet RxNorm: 231916 1-2 Tablet(s) PO QD 07/30/20 12 12/26/2012 Inactive alprazolam 0.5 mg tablet RxNorm: 811331 1 Tablet(s) PO BID 07/29/20 12 08/27/2012 Inactive prn Klor-Con 8 mEq tablet,extended release RxNorm: 665436 1 Tablet( s) PO BID 07/29/2012 11/10/2012 Inactive hydrocodone-acetaminophen 10 mg-325 mg tablet RxNorm: 165785 2 1-2 Tablet(s) PO QID as needed for severe pain 07/29/2012 No Stop Date Active Premarin 1.25 mg tablet RxNorm: 901921 1-2 Tablet(s) PO QD 07/29/20 12 07/29/2012 Inactive clonidine 0.2 mg tablet RxNorm: 083865 1 Tablet(s) PO TID 07/29/2012 10/28/2012 Inactive ketorolac 10 mg tablet RxNorm: 756556 1 Tablet(s) PO QID prn he adache 07/18/2012 No Stop Date Active hydrocodone-acetaminophen 10 mg-325 mg tablet RxNorm: 675304 2 1-2 Tablet(s) PO QID as needed for severe pain 07/03/2012 No Stop Date Active amlodipine 5 mg tablet RxNorm: 081088 1 Tablet(s) PO QD 07/02/2012 Inactive allopurinol 300 mg tablet RxNorm: 984610 1 Tablet(s) PO QD 07/02/20 12 09/19/2012 Inactive Celebrex 200 mg capsule RxNorm: 972448 1 Capsule(s) PO QD for j oint pain 06/26/2012 10/23/2012 Inactive diclofenac sodium 75 mg tablet,delayed release RxNorm: 79987 8 1 Tablet(s) PO BID for pain 06/19/2012 09/16/2012 Inactive hydrocodone-acetaminophen 10 mg-325 mg tablet RxNorm: 130116 2 1-2 Tablet(s) PO QID as needed for severe pain 06/10/2012 No Stop Date Active alprazolam 0.5 mg tablet RxNorm: 584458 1 Tablet(s) PO BID 06/03/20 12 07/02/2012 Inactive prn ketorolac 10 mg tablet RxNorm: 844581 1 Tablet(s) PO Q8H 05/27/2012 0 01/21/2019 Inactive as needed for headache hydrocodone-acetaminophen 10 mg-325 mg tablet RxNorm: 343173 2 1-2 Tablet(s) PO QID as needed for severe pain 05/15/2012 No Stop Date Active allopurinol 300 mg tablet RxNorm: 122529 1 Tablet(s) PO QD 05/14/20 12 06/12/2012 Inactive allopurinol 300 mg tablet RxNorm: 700953 1 Tablet(s) PO QD 05/14/20 12 05/13/2012 Inactive amlodipine 5 mg tablet RxNorm: 468627 1 Tablet(s) PO QD 05/01/2012 Inactive amlodipine 5 mg Tab RxNorm: 593072 1 Tablet(s) PO QD 05/01/201204/30 Inactive Celebrex 200 mg capsule RxNorm: 652993 1 Capsule(s) PO QD for j oint pain 05/01/2012 06/25/2012 Inactive Singulair 10 mg tablet RxNorm: 201610 1 Tablet(s) PO QD 05/01/2012 Inactive alprazolam 0.5 mg tablet RxNorm: 524662 1 Tablet(s) PO BID 05/01/20 12 05/30/2012 Inactive prn Celebrex 200 mg Cap RxNorm: 579530 1 Capsule(s) PO QD for joint radu n 05/01/2012 04/30/2012 Inactive hydrocodone-acetaminophen 10 mg-325 mg tablet RxNorm: 279669 2 1-2 Tablet(s) PO QID as needed for severe pain 04/19/2012 No Stop Date Active Lasix 40 mg tablet RxNorm: 387062 1 Tablet(s) PO QAM s hould take potassium supplementation with this medication 04/05/2012 06/03/2012 Inactive alprazolam 0.5 mg Tab RxNorm: 620653 1 Tablet(s) PO BID 04/05/2012 Inactive prn hydrocodone-acetaminophen 10 mg-325 mg Tab RxNorm: 5465532 1-2 Tablet(s) PO QID as needed for severe pain 03/25/2012 03/24/2012 Inactive clonidine 0.2 mg Tab RxNorm: 029413 1 Tablet(s) PO TID 03/08/2012 Inactive alprazolam 0.5 mg Tab RxNorm: 792789 1 Tablet(s) PO BID 03/08/2012 Inactive prn Soma 350 mg tablet RxNorm: 730498 1 Tablet(s) PO TID for spasm 02/0903/18/2012 Inactive clonidine 0.2 mg tablet RxNorm: 790345 1 Tablet(s) PO TID 03/08/2012 07/28/2012 Inactive Celebrex 200 mg Cap RxNorm: 024744 1 Capsule(s) PO QD for joint radu n 03/01/2012 04/29/2012 Inactive amlodipine 5 mg Tab RxNorm: 258212 1 Tablet(s) PO QD 02/26/201202/24 Inactive amlodipine 5 mg Tab RxNorm: 016819 1 Tablet(s) PO QD 02/26/201204/25 Inactive Bactroban 2 % Ointment RxNorm: 690311 Application TOP QID to sores 02/23/2012 No Stop Date Active amlodipine 2.5 mg tablet RxNorm: 905840 1 Tablet(s) PO QHS 02/20/2002/25/2012 Inactive doxycycline hyclate 100 mg Cap RxNorm: 2504913 1 Capsule(s) PO BID 02/20/2012 02/29/2012 Inactive hydrocodone-acetaminophen 10 mg-325 mg Tab RxNorm: 0618184 1-2 T ablet(s) PO QID 02/08/2012 No Stop Date Active alprazolam 0.5 mg Tab RxNorm: 950074 1 Tablet(s) PO BID 02/08/2012 Inactive prn Singulair 10 mg Tab RxNorm: 814095 1 Tablet(s) PO QD 02/08/201204/30 Inactive Soma 350 mg Tab RxNorm: 488619 1 Tablet(s) PO TID for spasm 012 03/07/2012 Inactive Soma 350 mg Tab RxNorm: 761673 1 Tablet(s) PO TID for spasm 012 02/05/2012 Inactive diclofenac sodium 75 mg tablet,delayed release RxNorm: 08130 8 1 Tablet(s) PO BID for pain 02/01/2012 03/18/2012 Inactive Celebrex 200 mg Cap RxNorm: 112017 1 Capsule(s) PO QD for joint radu n 01/30/2012 02/28/2012 Inactive Lasix 40 mg Tab RxNorm: 243137 1 Tablet(s) PO QAM 01/24/2012 03/18/20 12 Inactive potassium chloride ER 20 mEq tablet,extended release(part/cr yst) RxNorm: 474184 2 Tablet(s) PO BID 01/24/2012 02/22/2012 Inactive alprazolam 0.5 mg Tab RxNorm: 070716 1 Tablet(s) PO BID 01/11/2012 Inactive prn hydrocodone-acetaminophen 10 mg-325 mg Tab RxNorm: 1062409 1-2 T ablet(s) PO QID 01/11/2012 No Stop Date Active Ambien 10 mg Tab RxNorm: 028770 1 Tablet(s) PO QHS 01/11/2012 012 Inactive Klor-Con 8 mEq Tab RxNorm: 051478 1 Tablet(s) PO BID 01/11/201201/22 Inactive diclofenac sodium 75 mg Tab, Delayed Release RxNorm: 241379 1 Tablet(s) PO BID for pain 01/10/2012 01/31/2012 Inactive Ambien 10 mg Tab RxNorm: 343888 1 Tablet(s) PO QHS 12/11/2011 012 Inactive alprazolam 0.5 mg Tab RxNorm: 490200 1 Tablet(s) PO BID 12/11/2011 Inactive prn hydrocodone 10 mg-acetaminophen 325 mg tablet RxNorm: 754427 1-2 Tablet(s) PO TID 11/28/2011 No Stop Date Active as needed for pa in - Previous quantity #240, will start dosing for #180 in April 2011 per Doctor Td. Ambien 10 mg Tab RxNorm: 239335 1 Tablet(s) PO QHS 11/09/2011 012 Inactive alprazolam 0.5 mg Tab RxNorm: 443580 1 Tablet(s) PO BID 11/09/2011 Inactive prn hydrocodone-acetaminophen 10 mg-325 mg Tab RxNorm: 4898291 1-2 T ablet(s) PO TID 11/06/2011 No Stop Date Active as needed for pain - Previous quantity #240, will start dosing for #180 in April 2011 per Doctor Td. Singulair 10 mg Tab RxNorm: 891561 1 Tablet(s) PO QD 10/13/201110/12 Inactive Singulair 10 mg Tab RxNorm: 490528 1 Tablet(s) PO QD 10/13/201102/06 Inactive hydrocodone-acetaminophen 10 mg-325 mg Tab RxNorm: 4094729 1-2 T ablet(s) PO TID 10/10/2011 10/09/2011 Inactive as needed for pain - Previous quantity #240, will start dosing for #180 in April 2011 per Doctor Td. hydrocodone-acetaminophen 10 mg-325 mg Tab RxNorm: 4383762 1-2 T ablet(s) PO TID 10/09/2011 No Stop Date Active as needed for pain - Previous quantity #240, will start dosing for #180 in April 2011 per Doctor Td. Klor-Con 8 mEq Tab RxNorm: 761486 1 Tablet(s) PO BID 10/02/201101/09 Inactive triamterene 75 mg-hydrochlorothiazide 50 mg tablet RxNorm: 3 33851 1 Tablet(s) PO QD 09/14/2011 03/06/2013 Inactive Ambien 10 mg Tab RxNorm: 616279 1 Tablet(s) PO QHS 09/14/2011 012 Inactive hydrocodone-acetaminophen 10 mg-325 mg Tab RxNorm: 3263054 1-2 T ablet(s) PO TID 09/14/2011 No Stop Date Active as needed for pain - Previous quantity #240, will start dosing for #180 in April 2011 per Doctor Td. alprazolam 0.5 mg Tab RxNorm: 298388 1 Tablet(s) PO BID 09/14/2011 Inactive prn Zithromax 500 mg Tab RxNorm: 539362 1 Tablet(s) PO QD 09/13/201109/10 Inactive prednisone 20 mg Tab RxNorm: 681878 1 Tablet(s) PO BID 08/31/2011 Inactive Ambien 10 mg Tab RxNorm: 242784 1 Tablet(s) PO QHS 08/17/2011 011 Inactive hydrocodone-acetaminophen 10 mg-325 mg Tab RxNorm: 7450434 1-2 T ablet(s) PO TID 08/17/2011 No Stop Date Active as needed for pain - Previous quantity #240, will start dosing for #180 in April 2011 per Doctor Td. clonidine 0.2 mg Tab RxNorm: 447196 1 Tablet(s) PO TID 08/17/201112/2011 Inactive Ambien 10 mg Tab RxNorm: 901917 1 Tablet(s) PO QHS 08/17/2011 019 Inactive alprazolam 0.5 mg Tab RxNorm: 167361 1 Tablet(s) PO BID 08/17/2011 Inactive prn hydrocodone-acetaminophen 10 mg-325 mg Tab RxNorm: 7855414 1-2 T ablet(s) PO TID 08/17/2011 08/16/2011 Inactive as needed for pain - Previous quantity #240, will start dosing for #180 in April 2011 per Doctor Td. Singulair 10 mg Tab RxNorm: 767470 1 Tablet(s) PO QD 08/17/201108/16 Inactive Klor-Con 8 mEq Tab RxNorm: 819148 1 Tablet(s) PO QD 08/17/20112011 Inactive alprazolam 0.5 mg Tab RxNorm: 298075 1 Tablet(s) PO BID 07/20/2011 Inactive prn Ambien 10 mg Tab RxNorm: 602954 1 Tablet(s) PO QHS 07/20/2011 012 Inactive Singulair 10 mg Tab RxNorm: 963251 1 Tablet(s) PO QD 07/20/201107/19 Inactive Premarin 1.25 mg tablet RxNorm: 655887 2 Tablet(s) PO QD 07/20/2011 0 01/21/2019 Inactive Premarin 1.25 mg tablet RxNorm: 779692 1-2 Tablet(s) PO QD 07/20/20 11 12/16/2011 Inactive Premarin 1.25 mg Tab RxNorm: 909590 1-2 Tablet(s) PO QD 07/06/2011 Inactive alprazolam 0.5 mg Tab RxNorm: 880201 1 Tablet(s) PO BID 06/22/2011 Inactive prn alprazolam 0.5 mg Tab RxNorm: 277416 1 Tablet(s) PO BID 06/22/2011 Inactive prn Premarin 1.25 mg Tab RxNorm: 134230 1 Tablet(s) PO QD m ay do 90 day fill if desired 06/22/2011 07/05/2011 Inactive hydrocodone-acetaminophen 10 mg-325 mg Tab RxNorm: 7962400 1-2 T ablet(s) PO TID 06/22/2011 No Stop Date Active as needed for pain - Previous quantity #240, will start dosing for #180 in April 2011 per Doctor Td. clonidine 0.2 mg Tab RxNorm: 857676 1 Tablet(s) PO TID 05/25/201103/2011 Inactive triamterene-hydrochlorothiazide 75 mg-50 mg Tab RxNorm: 3108 18 1 Tablet(s) PO QD 05/25/2011 09/13/2011 Inactive alprazolam 0.5 mg Tab RxNorm: 549382 1 Tablet(s) PO BID 05/25/2011 Inactive prn hydrocodone-acetaminophen 10 mg-325 mg Tab RxNorm: 9716340 1-2 T ablet(s) PO TID 05/25/2011 No Stop Date Active as needed for pain - Previous quantity #240, will start dosing for #180 in April 2011 per Doctor Td. Robaxin-750 750 mg Tab RxNorm: 564823 2 Tablet(s) PO QHS 05/22/2011 1 Inactive prn spasm hydrocodone-acetaminophen 10 mg-325 mg Tab RxNorm: 4451172 1-2 T ablet(s) PO TID 04/26/2011 No Stop Date Active as needed for pain - Previous quantity #240, will start dosing for #180 in April 2011 per Doctor Td. alprazolam 0.5 mg Tab RxNorm: 995972 1 Tablet(s) PO BID 04/25/2011 Inactive prn Klor-Con 8 mEq Tab RxNorm: 183668 1 Tablet(s) PO QD 03/30/20112010 Inactive Klor-Con 8 mEq Tab RxNorm: 695851 1 Tablet(s) PO QD 03/29/20112010 Inactive hydrocodone-acetaminophen 10 mg-325 mg Tab RxNorm: 3409257 1-2 T ablet(s) PO TID 03/20/2011 04/25/2011 Inactive as needed for pain - Previous quantity #240, will start dosing for #180 in April 2011 per Doctor Td. alprazolam 0.5 mg Tab RxNorm: 268077 1 Tablet(s) PO BID prn 011 03/30/2011 Inactive Ambien 10 mg Tab RxNorm: 165763 1 Tablet(s) PO QHS 03/01/2011 011 Inactive cyclobenzaprine 10 mg Tab RxNorm: 883928 1 Tablet(s) PO TID 011 03/18/2012 Inactive cyclobenzaprine 10 mg Tab RxNorm: 146604 1 Tablet(s) PO TID 011 01/08/2011 Inactive cyclobenzaprine 10 mg Tab RxNorm: 222031 1 Tablet(s) PO TID 011 12/20/2010 Inactive terbinafine 250 mg Tab RxNorm: 613365 1 Tablet(s) PO QD 12/12/2010 Inactive triamterene-hydrochlorothiazide 75 mg-50 mg Tab RxNorm: 3108 18 1 Tablet(s) PO QD 12/07/2010 06/04/2011 Inactive Klor-Con 8 8 mEq Tab RxNorm: 296523 1 Tablet(s) PO QD 12/07/201001/08 Inactive Premarin 1.25 mg Tab RxNorm: 428868 2 Tablet(s) PO QD 12/07/201001/08 Inactive clonidine 0.2 mg Tab RxNorm: 657519 1 Tablet(s) PO TID 12/07/2010 Inactive hydrocodone-acetaminophen 7.5 mg-650 mg Tab RxNorm: 828706 1 Ta blet(s) PO Q4H 12/05/2010 01/21/2019 Inactive hydrocodone-acetaminophen 7.5 mg-650 mg Tab RxNorm: 259976 1 Ta blet(s) PO Q4H 10/26/2010 11/14/2010 Inactive hydrocodone-acetaminophen 7.5 mg-650 mg Tab RxNorm: 068567 1 Ta blet(s) PO Q4H 10/13/2010 10/25/2010 Inactive hydrocodone-acetaminophen 7.5 mg-650 mg Tab RxNorm: 982277 1 Ta blet(s) PO Q4H 09/15/2010 09/12/2010 Inactive alprazolam 0.5 mg Tab RxNorm: 484815 1 Tablet(s) PO BID prn 011 09/12/2010 Inactive terbinafine 250 mg Tab RxNorm: 341224 1 Tablet(s) PO QD 09/05/2010 Inactive hydrocodone-acetaminophen 7.5 mg-650 mg Tab RxNorm: 005772 1 Ta blet(s) PO Q4H 08/29/2010 09/17/2010 Inactive alprazolam 0.5 mg Tab RxNorm: 182443 1 Tablet(s) PO BID prn 010 09/27/2010 Inactive alprazolam 0.5 mg Tab RxNorm: 222519 1 Tablet(s) PO BID prn 010 09/06/2010 Inactive Klor-Con 8 mEq Tab RxNorm: 754105 1 Tablet(s) PO QD 08/08/20102010 Inactive hydrocodone-acetaminophen 7.5 mg-650 mg Tab RxNorm: 001406 1 Ta blet(s) PO Q4H 08/08/2010 08/27/2010 Inactive Ambien 10 mg Tab RxNorm: 584861 1 Tablet(s) PO QHS 08/08/2010 Inactive clonidine 0.2 mg Tab RxNorm: 890129 1 Tablet(s) PO TID 08/08/2010 Inactive Premarin 1.25 mg Tab RxNorm: 465072 2 Tablet(s) PO QD 08/08/201009/12 Inactive Ambien 10 mg Tab RxNorm: 565074 1 Tablet(s) PO QHS 07/18/2010 Inactive alprazolam 0.5 mg Tab RxNorm: 054152 1 Tablet(s) PO BID prn 08/07/2010 Inactive hydrocodone-acetaminophen 7.5 mg-650 mg Tab RxNorm: 084104 1 Ta blet(s) PO Q4H 07/12/2010 07/31/2010 Inactive clonidine 0.2 mg Tab RxNorm: 253251 1 Tablet(s) PO TID 06/20/2010 Inactive terbinafine 250 mg Tab RxNorm: 295913 1 Tablet(s) PO QD 05/24/2010 Inactive Clonidine 0.2 mg Tab RxNorm: 358552 1 Tablet(s) PO TID 05/24/201006/2010 Inactive Ambien 10 mg Tab RxNorm: 552337 1 Tablet(s) PO QHS 05/24/2010 Inactive alprazolam 0.5 mg Tab RxNorm: 857108 1 Tablet(s) PO BID 05/24/2010 Inactive Klor-Con 8 mEq Tab RxNorm: 360408 1 Tablet(s) PO QD 05/24/20102009 Inactive alprazolam 0.5 mg Tab RxNorm: 679624 2 Tablet(s) PO QD prn 05/24/20 10 07/17/2010 Inactive triamterene-hydrochlorothiazide 75 mg-50 mg Tab RxNorm: 3108 18 1 Tablet(s) PO QD 05/24/2010 11/19/2010 Inactive Ambien 10 mg Tab RxNorm: 733008 1 Tablet(s) PO QHS 05/23/2010 010 Inactive Alprazolam 0.5 mg Tab RxNorm: 167600 2 Tablet(s) PO QD prn 05/23/2005/23/2010 Inactive Premarin 1.25 mg Tab RxNorm: 009934 2 Tablet(s) PO QD 05/19/201007/12 Inactive Hydrocodone-Acetaminophen 7.5 mg-650 mg Tab RxNorm: 889719 1 Ta blet(s) PO Q4H 05/19/2010 03/20/2011 Inactive Prednisone 20 mg Tab RxNorm: 876750 1 Tablet(s) PO BID 05/17/2010 Inactive Prednisone 20 mg Tab RxNorm: 195031 1 Tablet(s) PO BID 05/06/201001/2010 Inactive Premarin 1.25 mg Tab RxNorm: 981515 Tablet(s) PO 2 M-W-F, and 1 Zo-Ka-Teg-Sun 05/05/2010 08/02/2010 Inactive Premarin 1.25 mg Tab RxNorm: 768617 Tablet(s) PO 2 M-W-F, and 1 Dv-Kd-Bcs-Sun 05/04/2010 05/04/2010 Inactive Premarin 1.25 mg Tab RxNorm: 767722 Tablet(s) PO 2 M-W-F, and 1 Bf-Am-Gti-Sun 05/04/2010 05/03/2010 Inactive Prednisone 20 mg Tab RxNorm: 952804 1 Tablet(s) PO BID 04/27/2010 Inactive Alprazolam 0.5 mg Tab RxNorm: 855231 2 Tablet(s) PO QD prn 04/26/2005/22/2010 Inactive Clindamycin 300 mg Cap RxNorm: 669912 2 Capsule(s) PO TID 04/05/2010 04/18/2010 Inactive Terbinafine 250 mg Tab RxNorm: 383303 1 Tablet(s) PO QD 04/04/2010 Inactive Hydrocodone-Acetaminophen 7.5 mg-650 mg Tab RxNorm: 403656 1 Ta blet(s) PO Q4H 03/30/2010 04/18/2010 Inactive Avelox 400 mg Tab RxNorm: 276530 1 Tablet(s) PO QD 03/09/2010 010 Inactive Hydrocodone-Acetaminophen 7.5 mg-650 mg Tab RxNorm: 304811 1 Ta blet(s) PO Q4H 03/08/2010 03/27/2010 Inactive Alprazolam 0.5 mg Tab RxNorm: 713699 2 Tablet(s) PO QD prn 03/08/20 10 04/25/2010 Inactive Klor-Con 8 mEq Tab RxNorm: 308033 1 Tablet(s) PO QD when takes lasi x 03/07/2010 09/29/2019 Inactive Premarin 1.25 mg Tab RxNorm: 634786 1 Tablet(s) PO QD 03/03/201003/11 Inactive Alprazolam 0.5 mg Tab RxNorm: 208133 1 Tablet(s) PO BID PRN 010 No Stop Date Active triamterene-hydrochlorothiazide 75 mg-50 mg Tab RxNorm: 3108 18 1 Tablet(s) PO QD 02/09/2010 02/03/2011 Inactive Hydrocodone-Acetaminophen 10 mg-750 mg Tab RxNorm: 889597 1 Tablet(s) PO Q4H PRN 02/09/2010 03/20/2011 Inactive Clonidine 0.2 mg Tab RxNorm: 093440 1 Tablet(s) PO TID 01/13/201009/2009 Inactive Alprazolam 0.5 mg Tab RxNorm: 528800 1 Tablet(s) PO BID PRN 010 01/12/2010 Inactive Hydrocodone-Acetaminophen 10 mg-750 mg Tab RxNorm: 610475 1 Tablet(s) PO Q4H PRN 01/13/2010 01/12/2010 Inactive ANGELIQ 1 mg-0.5 mg Tab RxNorm: 2082374 1 Tablet(s) PO QD 12/27/2009 01/23/2010 Inactive Lasix 40 mg Tab RxNorm: 271748 1 Tablet(s) PO QAM 12/14/2009 06/11/20 10 Inactive Vitamin B12 1000mcg Tablet RxNorm: 1 Tablet(s) PO QD No Start Date Active cyclobenzaprine 10 mg tablet RxNorm: 654268 1 Tablet(s) PO TID as needed DO NOT USE WITH BACLOFEN No Start Date Active Vitamin D 5,000 unit Tab RxNorm: 1 Tablet(s) PO QD No Start Date Active vitamin E (dl, acetate) 400 unit Cap RxNorm: 346523 1 Capsule(s ) PO QD No Start Date Active Benadryl 25 mg Cap RxNorm: 5030256 Capsule(s) PO PRN No Start Date Inactive amitriptyline 100 mg tablet RxNorm: 795930 1 Tablet(s) PO QHS No St art Date 11/27/2016 Inactive Zithromax Z-Dustin 250 mg tablet RxNorm: 050041 Tablet(s) PO as di rected No Start Date 07/22/2013 Inactive Klor-Con 8 mEq tablet,extended release RxNorm: 806219 1 Tablet( s) PO BID No Start Date 07/28/2012 Inactive scopolamine 1.5 mg 72 hr Transderm Patch RxNorm: 422011 Application TD Q72H for motion sickness No Start Date 05/25/2013 Inactive Klonopin 1 mg tablet RxNorm: 022715 1-2 Tablet(s) PO QHS as nee ded for sleep No Start Date 06/20/2015 Inactive Klor-Con M20 mEq tablet,extended release RxNorm: 592567 2 Tablet(s) PO BID to use with lasix No Start Date 11/11/2013 Inactive Bystolic 5 mg tablet RxNorm: 173780 1 Tablet(s) PO QD No Start Date 1 Inactive Bystolic 10 mg tablet RxNorm: 107319 1 Tablet(s) PO BID No Start Da te 07/06/2015 Inactive Premarin 1.25 mg Tab RxNorm: 119276 Tablet(s) PO 2 -W-, and 1 Qn-Ei-Oiw-Sun No Start Date 05/03/2010 Inactive baclofen 20 mg tablet RxNorm: 092482 1 Tablet(s) PO TID as needed for muscle spasm No Start Date 07/22/2015 Inactive hydrocodone-acetaminophen 7.5 mg-650 mg Tab RxNorm: 981395 1 Tablet(s) PO Q4H as needed for pain No Start Date 03/20/2011 Inactive albuterol sulfate 1.25 mg/3 mL Neb Solution RxNorm: 510038 1 Unit Dose INH Q4H 2boxes No Start Date 09/06/2015 Inactive Butrans 20 mcg/hour Transderm Patch RxNorm: 091999 1 TD WEEKLY apply to skin weekly after removing previous. No Start Date 07/22/2013 Inactive Medrol (Dustin) 4 mg tablets in a dose pack RxNorm: 352430 Tablet(s) PO As Directed No Start Date 07/30/2016 Inactive hydrocodone-acetaminophen 10 mg-325 mg Tab RxNorm: 6843645 1-2 Tablet(s) PO TID as needed for pain No Start Date 03/19/2011 Inactive Klonopin 1 mg tablet RxNorm: 508725 1 Tablet(s) PO QHS No Start Date 02/28/2016 Inactive honey topical RxNorm: topical No Start Date 06/16/2018 Inactive Clonidine 0.2 mg Tab RxNorm: 042710 1 Tablet(s) PO TID No Start Date 01/12/2010 Inactive ketorolac 10 mg tablet RxNorm: 687213 1 Tablet(s) PO Q8H No Start D ate 03/18/2012 Inactive as needed for headache Singulair 10 mg Tab RxNorm: 180816 1 Tablet(s) PO QD No Start Date Inactive Premarin 1.25 mg Tab RxNorm: 521700 1 Tablet(s) PO QD No Start Date 1 Inactive Flonase 50 mcg/Actuation Nasal [place] RxNorm: 4503183 1 [place] CECELIA AL BID No Start Date 03/18/2012 Inactive Terbinafine 250 mg Tab RxNorm: 907077 1 Tablet(s) PO QD No Start Da te 04/03/2010 Inactive Fexofenadine 180 mg Tab RxNorm: 6720309 1 Tablet(s) PO QD No Start Date 09/06/2015 Inactive baclofen 20 mg tablet RxNorm: 157303 1 Tablet(s) PO TID as needed N o Start Date 05/25/2014 Inactive Diovan 160 mg Tab RxNorm: 202682 1 Tablet(s) PO QD No Start Date 09/12 Inactive mupirocin 2 % topical ointment RxNorm: 385824 1 Application TOP QID No Start Date 04/25/2016 Inactive ZOFRAN ODT 4 mg Tab, Rapid Dissolve RxNorm: 519637 1 Tablet(s) PO Q4H No Start Date 03/18/2012 Inactive as needed for nausea and vomiting Alprazolam 0.5 mg Tab RxNorm: 554954 1 Tablet(s) PO BID PRN No Star t Date 01/12/2010 Inactive cyclobenzaprine 10 mg tablet RxNorm: 059128 1 Tablet(s) PO TID as needed for muscle spasm No Start Date 10/08/2017 Inactive Albuterol 0.083% Aerosol Solution RxNorm: 1 Appl ication INH Q4H Use one ampule every 4 hrs with nebulizer as needed for shortness of breath. No Start Date 10/09/2010 Inactive lorazepam 1 mg tablet RxNorm: 847614 1 1/2 Tablet(s) PO QHS No Star t Date 02/02/2016 Inactive Melatonin 3 mg Tab RxNorm: 996846 Tablet(s) PO PRN No Start Date 07/11 Inactive Medrol (Dustin) 4 mg Tabs in a Dose Pack RxNorm: 273499 Tablet(s) PO N o Start Date 11/28/2010 Inactive lorazepam 1 mg tablet RxNorm: 174716 1 Tablet(s) PO QHS as need ed for sleep No Start Date 01/30/2016 Inactive hydrocodone-acetaminophen 10 mg-325 mg Tab RxNorm: 5982748 1-2 Tablet(s) PO QID as needed for severe pain No Start Date 03/24/2012 Inactive celecoxib 200 mg capsule RxNorm: 059738 1 Capsule(s) PO BID No Star t Date 06/26/2019 Inactive amlodipine 5 mg-benazepril 20 mg capsule RxNorm: 672724 1 Capsu le(s) PO QD No Start Date 04/10/2017 Inactive Bystolic 20 mg tablet RxNorm: 378522 1/2 Tablet(s) PO QAM No Start Date 01/23/2016 Inactive Bystolic 20 mg tablet RxNorm: 120705 1 Tablet(s) PO QAM No Start Da te 04/25/2016 Inactive Ambien 10 mg Tab RxNorm: 615259 1 Tablet(s) PO QHS No Start Date 05/11 Inactive Klor-Con 8 mEq Tab RxNorm: 571110 1 Tablet(s) PO QD when takes lasix No Start Date 03/06/2010 Inactive aspirin 81 mg tablet RxNorm: 707868 1 Tablet(s) PO QD No Start Date 0 01/29/2018 Inactive hydrocodone-acetaminophen 10 mg-325 mg Tab RxNorm: 7226429 1-2 T ablet(s) PO QID No Start Date 01/10/2012 Inactive Bystolic 10 mg tablet RxNorm: 198710 1 Tablet(s) PO QAM take one daily in the morning. No Start Date 05/28/2013 Inactive nystatin 100,000 unit/mL Oral Susp RxNorm: 770302 5 Milliliter( s) PO QID No Start Date 03/18/2012 Inactive swish and spit scopolamine 1.5 mg 72 hr Transderm Patch RxNorm: 993286 1 Unit Dose TD Q72H for motion sickness No Start Date 12/23/2013 Inactive Hydrocodone-Acetaminophen 10 mg-750 mg Tab RxNorm: 129095 1 Tablet(s) PO Q4H PRN No Start Date 01/12/2010 Inactive Soma 350 mg tablet RxNorm: 057649 1 Tablet(s) PO TID as needed for spasm No Start Date 01/12/2013 Inactive baclofen 10 mg tablet RxNorm: 714530 1 Tablet(s) PO TID as needed for muscle spasm No Start Date 09/18/2019 Inactive Soma 350 mg Tab RxNorm: 013380 1 Tablet(s) PO TID for spasm No Star t Date 01/31/2012 Inactive Co Q-10 400 mg capsule RxNorm: 268080 1 Capsule(s) PO QD No Start D ate 01/21/2019 Inactive nystatin 100,000 unit/gram topical cream RxNorm: 527009 Applica tion TOP BID No Start Date 03/22/2015 Inactive Exforge 5 mg-160 mg Tab RxNorm: 886319 1 Tablet(s) PO QD No Start D ate 10/09/2010 Inactive Hydrocodone-Acetaminophen 7.5 mg-650 mg Tab RxNorm: 199639 1 Ta blet(s) PO Q4H No Start Date 03/07/2010 Inactive Robaxin-750 750 mg Tab RxNorm: 803847 1-2 Tablet(s) PO TID prn spasm No Start Date 05/21/2011 Inactive amlodipine 5 mg tablet RxNorm: 178994 1 Tablet(s) PO QHS No Start D ate 09/29/2015 Inactive oxycodone-acetaminophen 10 mg-325 mg tablet RxNorm: 0617919 1-2 Tablet(s) PO Q6H No Start Date 06/16/2018 Inactive Triamterene-Hydrochlorothiazide 75 mg-50 mg Tab RxNorm: 3108 18 1 Tablet(s) PO QD No Start Date 02/08/2010 Inactive Alprazolam 0.5 mg Tab RxNorm: 715684 2 Tablet(s) PO QD prn No Start Date 03/07/2010 Inactive Bystolic 20 mg tablet RxNorm: 475624 1 Tablet(s) PO QAM No Start Da te 08/17/2015 Inactive ketorolac 10 mg tablet RxNorm: 833066 1 Tablet(s) PO QID prn he adache No Start Date 07/17/2012 Inactive acyclovir 800 mg Tab RxNorm: 330471 1 Tablet(s) PO BID No Start Date 03/18/2012 Inactive duloxetine 60 mg capsule,delayed release RxNorm: 496079 1 Capsu le(s) PO QD No Start Date 09/29/2015 Inactive Norvasc 5 mg tablet RxNorm: 701102 1 Tablet(s) PO QHS No Start Date 1 10/18/2014 Inactive promethazine 25 mg tablet RxNorm: 573070 1 Tablet(s) PO Q8H use sparingly No Start Date 07/22/2013 Inactive alprazolam 0.5 mg tablet RxNorm: 902602 3 Tablet(s) PO QHS No Start Date 06/06/2015 Inactive Lunesta 3 mg tablet RxNorm: 530303 1 Tablet(s) PO QHS No Start Date 0 09/20/2017 Inactive hydrocodone-acetaminophen 10 mg-325 mg Tab RxNorm: 6839271 1-2 Tablet(s) PO TID as needed for pain No Start Date 12/10/2011 Inactive Coricidin HBP Cough & Cold 4 mg-30 mg Tab RxNorm: 7132651 Tablet (s) PO PRN No Start Date 10/09/2010 Inactive Bactroban 2 % Ointment RxNorm: 192543 Application TOP QID to so res No Start Date 02/22/2012 Inactive Flonase 50 mcg/actuation Nasal [place] RxNorm: 924678 2 [place] QHS No Start Date 03/03/2014 Inactive Medication Administered No Medication Administered data Immunizations Vaccine Codes Date Status Tetanus, Diptheria, Pertussis CVX: 115 02/27/2014 Results Observation Observation Code Item Item Code Result Date S ervice Location [facility]PREHENS[facility] 98900 AST 15 U/L 2019 Unknown [facility] 53275 ALT 13 U/L 2019 Unknown [facility] 50259 BUN 12 mg/dL 2019 Unknown [facility] 85392 ALBUMIN 3.9 g/dL 2019 Unknown [facility] 39480 CHLORIDE 97 mmol/L 2019 Unknown [facility] 99395 Bili Total 0.4 mg/dL 09/29 Unknown COMPREHENSIVE METABOLIC 64332 ALK PHOS 130 U/L 2019 Unknown [facility] 76132 SODIUM 136 mmol/L 09/29 Unknown [facility]PREHENS[facility] MET[facility]OL[facility] 48826 CREATININE 0.92 mg/dL 09/11 Unknown [facility] 39944 CALCIUM 9.1 mg/dL 2019 Unknown [facility] 36211 POTASSIUM 4.4 mmol/L 09/29 Unknown [facility] 42988 Total Protein 6.2 g/dL Unknown [facility] 23671 Glucose 391 mg/dL 2019 Unknown [facility] 00072 Bicarbonate 30 mmol/L 09/11 Unknown COMPREHENSIVE METABOLIC 98683 AGAP 9 mmol/L 2019 Unknown MEAN GLUC 0705830 Calc Mean Gluc 332 mg/dL 09/29/2019 Unkn own COMPLETE BLOOD COUNT 2580513 WBC 7.0 10e9/L 09/29/19 Unknown COMPLETE BLOOD COUNT [id number] RBC 4.69 10e12/L 2019 Unknown COMPLETE BLOOD COUNT 2956982 HEMOGLOBIN 14.6 g/dL 09/29/19 Unknown COMPLETE BLOOD COUNT [id number] HEMATOCRIT 45.2 % 09/29/19 Unknown COMPLETE BLOOD COUNT 2712345 MCV 96.4 fL 0 Unknown COMPLETE BLOOD COUNT 9234614 MCH 31.1 pg 0 Unknown COMPLETE BLOOD COUNT 9792359 MCHC 32.3 g/dL 0 Unknown COMPLETE BLOOD COUNT 2798077 PLATELET COUNT 209 10e9/L Unknown COMPLETE BLOOD COUNT 2056219 Mean Plt Volume 9.8 fL Unknown COMPLETE BLOOD COUNT 2410719 Neut Auto 48.1 % 0 Unknown COMPLETE BLOOD COUNT 0067490 Lymph Auto 36.5 % 09/29/19 20 Unknown COMPLETE BLOOD COUNT 6524504 [place] Auto 8.6 % 0 Unknown COMPLETE BLOOD COUNT 1993799 RDW 13.4 % 0 Unknown COMPLETE BLOOD COUNT 3771335 Eos Auto 6.5 % 0 Unknown COMPLETE BLOOD COUNT 4566836 Baso Auto 0.3 % 0 Unknown COMPLETE BLOOD COUNT 6326404 Neutrophil Abs 3.37 10e9/L Unknown COMPLETE BLOOD COUNT 0445253 Lymphocyte Abs 2.56 10e9/L Unknown COMPLETE BLOOD COUNT [id number] Monocyte Abs 0.60 10e9/L 09/11 Unknown COMPLETE BLOOD COUNT [id number] Eosinophil Abs 0.46 10e9/L Unknown COMPLETE BLOOD COUNT 3747567 RDW-SD 45.9 fL 0 Unknown COMPLETE BLOOD COUNT [id number] Basophil Abs 0.02 10e9/L 09/11 Unknown LIPID GROUP 62927 Cholesterol 248 mg/dL 09/29/2019 Unkno wn LIPID GROUP 60553 Triglyceride 898 mg/dL 09/29/2019 Unkn own LIPID GROUP 72757 HDL CHOLESTEROL 41 mg/dL 09/29/2019 U nknown LIP[facility] GROUP 20389 Chol/HDL Ratio 6.05 ratio 09/29/2019 U nknown LIP[facility] GROUP 31532 NON-HDL Chol 207 mg/dL 09/29/2019 Unkn own LIP[facility] GROUP 49654 LDL Cholesterol N/A Trig >400 020 Unknown GLYCOSYLATED HEMOGLOBIN TEST 62587 Hgb A1c 43475-7 13.2 % 0 09/29/2019 Unknown FREE T4 77611 T4 Free 0.75 ng/dL 09/29/2019 Unknown GFR CALC 9186497 GFR Non Afr Amr >60 mL/min 09/29/2019 Un known GFR CALC 9749802 GFR Afr Amr >60 mL/min 09/29/2019 Unknow n THYROID STIMULATING HORMONE 30720 TSH 4.245 uIU/mL 09/29/2019 Unknown COMPLETE BLOOD COUNT 6031327 WBC 10.7 10e9/L 018 Unknown COMPLETE BLOOD COUNT 6139035 RBC 4.59 10e12/L 2017 Unknown COMPLETE BLOOD COUNT 9650590 HEMOGLOBIN 14.8 g/dL 12/11/19 18 Unknown COMPLETE BLOOD COUNT 2160413 HEMATOCRIT 44.9 % 12/11/19 18 Unknown COMPLETE BLOOD COUNT 3082745 MCV 97.8 fL 8 Unknown COMPLETE BLOOD COUNT 0535835 MCH 32.2 pg 8 Unknown COMPLETE BLOOD COUNT 8278200 MCHC 33.0 g/dL 8 Unknown COMPLETE BLOOD COUNT 5528848 PLATELET COUNT 261 10e9/L 10/2017 Unknown COMPLETE BLOOD COUNT 2668210 Mean Plt Volume 9.5 fL 10/2017 Unknown COMPLETE BLOOD COUNT 2008996 Neut Auto 59.9 % 8 Unknown COMPLETE BLOOD COUNT 2014803 Lymph Auto 27.4 % 12/11/19 18 Unknown COMPLETE BLOOD COUNT 9412966 [place] Auto 8.2 % 8 Unknown COMPLETE BLOOD COUNT 2701152 RDW 13.3 % 8 Unknown COMPLETE BLOOD COUNT 2460926 Eos Auto 4.1 % 8 Unknown COMPLETE BLOOD COUNT 9269560 Baso Auto 0.4 % 8 Unknown COMPLETE BLOOD COUNT 0568804 Neutrophil Abs 6.41 10e9/L Unknown COMPLETE BLOOD COUNT 4663220 Lymphocyte Abs 2.93 10e9/L Unknown COMPLETE BLOOD COUNT 5135155 Monocyte Abs 0.88 10e9/L 10/2017 Unknown COMPLETE BLOOD COUNT 5006366 Eosinophil Abs 0.44 10e9/L Unknown COMPLETE BLOOD COUNT 5244533 RDW-SD 46.2 fL 8 Unknown COMPLETE BLOOD COUNT 8058688 Basophil Abs 0.04 10e9/L 10/2017 Unknown THYROID STIMULATING HORMONE 50677 TSH 4.015 uIU/mL 12/10/2017 Unknown COMPREHENSIVE METABOLIC 17609 AST 25 U/L 2017 Unknown COMPREHENSIVE METABOLIC 23534 ALT 17 U/L 2017 Unknown COMPREHENSIVE METABOLIC 16137 BUN 19 mg/dL 2017 Unknown COMPREHENSIVE METABOLIC 61817 ALBUMIN 4.0 g/dL 2017 Unknown COMPREHENSIVE METABOLIC 75225 CHLORIDE 91 mmol/L 2017 Unknown COMPREHENSIVE METABOLIC 13911 Bili Total 0.5 mg/dL 12/10 Unknown COMPREHENSIVE METABOLIC 82182 ALK PHOS 75 U/L 2017 Unknown COMPREHENSIVE METABOLIC 78089 SODIUM 136 mmol/L 12/10 Unknown COMPREHENSIVE METABOLIC 26987 CREATININE 1.05 mg/dL 10/2017 Unknown COMPREHENSIVE METABOLIC 38767 CALCIUM 8.9 mg/dL 2017 Unknown COMPREHENSIVE METABOLIC 87924 POTASSIUM 3.4 mmol/L 12/10 Unknown COMPREHENSIVE METABOLIC 66442 Total Protein 6.5 g/dL Unknown COMPREHENSIVE METABOLIC 40425 Glucose 138 mg/dL 2017 Unknown COMPREHENSIVE METABOLIC 84140 Bicarbonate 35 mmol/L 10/2017 Unknown COMPREHENSIVE METABOLIC 74037 AGAP 10 mmol/L 2017 Unknown MEAN GLUC 2948308 Calc Mean Gluc 171 mg/dL 12/10/2017 Unkn own LIPID GROUP 47555 Cholesterol 204 mg/dL 12/10/2017 Unkno wn LIPID GROUP 38264 Triglyceride 411 mg/dL 12/10/2017 Unkn own LIP[facility] GROUP 30528 HDL CHOLESTEROL 50 mg/dL 12/10/2017 U nknown LIPID GROUP 85426 Chol/HDL Ratio 4.08 ratio 12/10/2017 U nknown LIP[facility] GROUP 15628 NON-HDL Chol 154 mg/dL 12/10/2017 Unkn own LIP[facility] GROUP 17463 LDL Cholesterol N/A Trig >400 018 Unknown GLYCOSYLATED HEMOGLOBIN TEST 70233 Hgb A1c 90910-5 7.6 % 0 12/10/2017 Unknown FREE T4 45145 T4 Free 1.40 ng/dL 12/10/2017 Unknown GFR CALC 8804497 GFR Non Afr Amr 55 mL/min 12/10/2017 Unk nown GFR CALC 5005120 GFR Afr Amr >60 mL/min 12/10/2017 Unknow n GFR CALC 8775777 GFR Non Afr Amr 48 mL/min 06/28/2017 Unk nown GFR CALC 3709247 GFR Afr Amr 59 mL/min 06/28/2017 Unknown COMPREHENSIVE METABOLIC 03795 AST 32 U/L 2016 Unknown COMPREHENSIVE METABOLIC 59007 ALT 22 U/L 2016 Unknown COMPREHENSIVE METABOLIC 21945 BUN 23 mg/dL 2016 Unknown COMPREHENSIVE METABOLIC 57022 ALBUMIN 4.7 g/dL 2016 Unknown COMPREHENSIVE METABOLIC 43570 CHLORIDE 89 mmol/L 2016 Unknown COMPREHENSIVE METABOLIC 16355 Bili Total 0.5 mg/dL 06/28 Unknown COMPREHENSIVE METABOLIC 95123 ALK PHOS 90 U/L 2016 Unknown COMPREHENSIVE METABOLIC 87606 SODIUM 135 mmol/L 06/28 Unknown COMPREHENSIVE METABOLIC 61797 CREATININE 1.18 mg/dL 06/10 Unknown COMPREHENSIVE METABOLIC 76549 CALCIUM 9.7 mg/dL 2016 Unknown COMPREHENSIVE METABOLIC 07707 POTASSIUM 3.5 mmol/L 06/28 Unknown COMPREHENSIVE METABOLIC 80115 Total Protein 7.7 g/dL Unknown COMPREHENSIVE METABOLIC 96070 Glucose 129 mg/dL 2016 Unknown COMPREHENSIVE METABOLIC 46912 Bicarbonate 34 mmol/L 06/10 Unknown COMPREHENSIVE METABOLIC 99886 AGAP 12 mmol/L 2016 Unknown [facility] GROUP 23013 HDL TEST 64 MG/DL 08/27/2014 Unknown [facility] 83674 TRIG 222 MG/DL 08/27/2014 Unknown L[facility] GROUP 90175 TEST LDL 209 MG/DL 08/27/2014 Unknown [facility] 13905 CHOL 317 MG/DL 08/27/2014 Unknown [facility] 17658 RCHOL/HDL 4.95 RATIO 08/27/2014 Unknow n LIP[facility] GROUP 75046 NON-HDL CH 253 MG/DL 08/27/2014 Unknow n GFR CALC 7340896 GFR AA >60 ML/MIN 08/27/2014 Unknown GFR CALC 4096980 GFR NON-AA >60 ML/MIN 08/27/2014 Unknown COMPLETE BLOOD COUNT 6822213 WBC 7.0 10e9/L 08/27/20 14 Unknown COMPLETE BLOOD COUNT 1284741 RBC 4.98 10e12/L 2013 Unknown COMPLETE BLOOD COUNT 9241164 HGB 15.6 g/dL 4 Unknown COMPLETE BLOOD COUNT 1730106 HCT DET 46.5 % 4 Unknown COMPLETE BLOOD COUNT 8965763 MCV 93.4 fL 4 Unknown COMPLETE BLOOD COUNT 9395749 MCH 31.3 pg 4 Unknown COMPLETE BLOOD COUNT 1707002 MCHC 33.5 g/dL 4 Unknown COMPLETE BLOOD COUNT 2005979 PLT 309 10e9/L 08/27/20 14 Unknown COMPLETE BLOOD COUNT 5971322 MPV 9.6 fL 4 Unknown COMPLETE BLOOD COUNT 3573088 [place] % 57.2 % 4 Unknown COMPLETE BLOOD COUNT 5496018 LY % 33.2 % 4 Unknown COMPLETE BLOOD COUNT 3455584 MON % 7.3 % 4 Unknown COMPLETE BLOOD COUNT 7293635 EOS % 2.0 % 4 Unknown COMPLETE BLOOD COUNT 7737856 BASO % 0.3 % 4 Unknown COMPLETE BLOOD COUNT 2797169 RDW 13.7 % 4 Unknown COMPLETE BLOOD COUNT 0101567 ABS CADEN 4.00 10e9/L 014 Unknown COMPLETE BLOOD COUNT 7942718 ABS LYMPH 2.32 10e9/L 014 Unknown COMPLETE BLOOD COUNT 4377419 ABS MONO 0.51 10e9/L 014 Unknown COMPLETE BLOOD COUNT 9948006 ABS EOS 0.14 10e9/L 014 Unknown COMPLETE BLOOD COUNT 2580084 ABS BASO 0.02 10e9/L 014 Unknown COMPLETE BLOOD COUNT 3433957 RDW-SD 45.1 fL 4 Unknown COMPREHENSIVE METABOLIC 13137 AST 13 U/L 2013 Unknown COMPREHENSIVE METABOLIC 18583 ALT 11 IU/L 2013 Unknown COMPREHENSIVE METABOLIC 00195 BUN 23 MG/DL 2013 Unknown COMPREHENSIVE METABOLIC 44727 ALBUMIN 4.4 GM/DL 2013 Unknown COMPREHENSIVE METABOLIC 37928 CHLORIDE 99 MMOL/L 2013 Unknown COMPREHENSIVE METABOLIC 54870 BILI TOT 0.5 MG/DL 2013 Unknown COMPREHENSIVE METABOLIC 43167 ALK PHOS 56 U/L 2013 Unknown COMPREHENSIVE METABOLIC 18702 SODIUM 138 MMOL/L 08/27 Unknown COMPREHENSIVE METABOLIC 88778 CREATININE 0.95 MG/DL 08/10 Unknown COMPREHENSIVE METABOLIC 78227 CALCIUM 9.8 MG/DL 2013 Unknown COMPREHENSIVE METABOLIC 80615 POTASSIUM 3.5 MMOL/L 08/27 Unknown COMPREHENSIVE METABOLIC 28591 PROT TOT 6.8 GM/DL 2013 Unknown COMPREHENSIVE METABOLIC 74983 Glucose 90 MG/DL 2013 Unknown COMPREHENSIVE METABOLIC 90679 BICARB 34 MMOL/L 2013 Unknown COMPREHENSIVE METABOLIC 49105 ANION GAP 5 MEQ/L 2013 Unknown LIPASE 12980 LIPASE 11 IU/L 07/21/2014 Unknown AMYLASE 08918 AMYLASE 39 IU/L 07/21/2014 Unknown HEMOGLOBIN A1C (GLYCOSYLATED) 8002595 A1C [facility] 28998-1 6.2 % 03/05/2013 Unknown THYROID STIMULATING HORMONE 06228 TSH 6.986 uIU/ML 03/05/2013 Unknown COMPLETE BLOOD COUNT 3073436 WBC 12.7 10e9/L 013 Unknown COMPLETE BLOOD COUNT 6815662 RBC 4.53 10e12/L 2012 Unknown COMPLETE BLOOD COUNT 4952687 HGB 14.7 g/dL 3 Unknown COMPLETE BLOOD COUNT 0826203 HCT DET 43.1 % 3 Unknown COMPLETE BLOOD COUNT 3210714 MCV 95.1 fL 3 Unknown COMPLETE BLOOD COUNT 3698650 MCH 32.5 pg 3 Unknown COMPLETE BLOOD COUNT 1848980 MCHC 34.1 g/dL 3 Unknown COMPLETE BLOOD COUNT 3666659 PLT 346 10e9/L 03/05/20 13 Unknown COMPLETE BLOOD COUNT 4511667 MPV 9.5 fL 3 Unknown COMPLETE BLOOD COUNT 0260773 CADEN % 67.6 % 3 Unknown COMPLETE BLOOD COUNT 8004359 LY % 22.1 % 3 Unknown COMPLETE BLOOD COUNT 1447896 MON % 6.6 % 3 Unknown COMPLETE BLOOD COUNT 1638720 EOS % 3.3 % 3 Unknown COMPLETE BLOOD COUNT 5586104 BASO % 0.4 % 3 Unknown COMPLETE BLOOD COUNT 2829556 RDW 14.0 % 3 Unknown COMPLETE BLOOD COUNT 5112734 ABS CADEN 8.59 10e9/L 013 Unknown COMPLETE BLOOD COUNT 0989749 ABS LYMPH 2.81 10e9/L 013 Unknown COMPLETE BLOOD COUNT 2442369 ABS MONO 0.84 10e9/L 013 Unknown COMPLETE BLOOD COUNT [id number] ABS EOS 0.42 10e9/L 013 Unknown COMPLETE BLOOD COUNT 8897895 ABS BASO 0.05 10e9/L 013 Unknown COMPLETE BLOOD COUNT 9974757 RDW-SD 46.0 fL 3 Unknown FREE T4 86870 FREE T4 1.14 NG/DL 03/05/2013 Unknown COMPREHENSIVE METABOLIC 47474 AST 17 U/L 2012 Unknown COMPREHENSIVE METABOLIC 42533 ALT 12 IU/L 2012 Unknown COMPREHENSIVE METABOLIC 85053 BUN 24 MG/DL 2012 Unknown COMPREHENSIVE METABOLIC 73004 ALBUMIN 4.2 GM/DL 2012 Unknown COMPREHENSIVE METABOLIC 97682 CHLORIDE 93 MMOL/L 2012 Unknown COMPREHENSIVE METABOLIC 04068 BILI TOT 0.5 MG/DL 2012 Unknown COMPREHENSIVE METABOLIC 43454 ALK PHOS 75 U/L 2012 Unknown COMPREHENSIVE METABOLIC 97181 SODIUM 141 MMOL/L 03/05 Unknown COMPREHENSIVE METABOLIC 93765 CREATININE 1.36 MG/DL 02/09 Unknown COMPREHENSIVE METABOLIC 42139 CALCIUM 9.2 MG/DL 2012 Unknown COMPREHENSIVE METABOLIC 37791 POTASSIUM 3.1 MMOL/L 03/05 Unknown COMPREHENSIVE METABOLIC 04935 PROT TOT 6.9 GM/DL 2012 Unknown COMPREHENSIVE METABOLIC 83436 Glucose 123 MG/DL 2012 Unknown COMPREHENSIVE METABOLIC 09568 BICARB 36 MMOL/L 2012 Unknown COMPREHENSIVE METABOLIC 80568 ANION GAP 12 MEQ/L 2012 Unknown GFR CALC 5313625 GFR AA 51.0L ML/MIN 03/05/2013 Unknow n GFR CALC 1894201 GFR NON-AA 42.0L ML/MIN 03/05/2013 Unkno wn COMPREHENSIVE METABOLIC 70224 AST 14 U/L 2012 Unknown COMPREHENSIVE METABOLIC 45247 ALT 11 IU/L 2012 Unknown COMPREHENSIVE METABOLIC 18658 BUN 16 MG/DL 2012 Unknown COMPREHENSIVE METABOLIC 58205 ALBUMIN 4.2 GM/DL 2012 Unknown COMPREHENSIVE METABOLIC 90558 CHLORIDE 98 MMOL/L 2012 Unknown COMPREHENSIVE METABOLIC 97843 BILI TOT 0.4 MG/DL 2012 Unknown COMPREHENSIVE METABOLIC 47396 ALK PHOS 77 U/L 2012 Unknown COMPREHENSIVE METABOLIC 32038 SODIUM 139 MMOL/L 09/25 Unknown COMPREHENSIVE METABOLIC 35810 CREATININE 0.86 MG/DL 09/10 Unknown COMPREHENSIVE METABOLIC 54081 CALCIUM 9.5 MG/DL 2012 Unknown COMPREHENSIVE METABOLIC 77495 POTASSIUM 3.8 MMOL/L 09/25 Unknown COMPREHENSIVE METABOLIC 70071 PROT TOT 6.8 GM/DL 2012 Unknown COMPREHENSIVE METABOLIC 15974 Glucose 91 MG/DL 2012 Unknown COMPREHENSIVE METABOLIC 85943 BICARB 32 MMOL/L 2012 Unknown COMPREHENSIVE METABOLIC 19857 ANION GAP 9 MEQ/L 2012 Unknown FREE T4 07539 FREE T4 0.98 NG/DL 09/25/2012 Unknown THYROID STIMULATING HORMONE 13676 TSH 1.736 uIU/ML 09/25/2012 Unknown C-REACTIVE PROTEIN (CRP) QUANT 01558 CRP 2.3 MG/DL 09/25/2012 Unknown COMPLETE BLOOD COUNT 3654154 WBC 11.9 10e9/L 013 Unknown COMPLETE BLOOD COUNT 9715762 RBC 4.87 10e12/L 2012 Unknown COMPLETE BLOOD COUNT 2975083 HGB 15.1 g/dL 3 Unknown COMPLETE BLOOD COUNT 3489827 HCT DET 44.8 % 3 Unknown COMPLETE BLOOD COUNT 8105297 MCV 92.0 fL 3 Unknown COMPLETE BLOOD COUNT 5584421 MCH 31.0 pg 3 Unknown COMPLETE BLOOD COUNT 8996483 MCHC 33.7 g/dL 3 Unknown COMPLETE BLOOD COUNT 9077834 PLT 343 10e9/L 09/25/19 13 Unknown COMPLETE BLOOD COUNT 6584904 MPV 9.0 fL 3 Unknown COMPLETE BLOOD COUNT 0889265 CADEN % 68.2 % 3 Unknown COMPLETE BLOOD COUNT 1249903 LY % 22.4 % 3 Unknown COMPLETE BLOOD COUNT 1275126 MON % 6.4 % 3 Unknown COMPLETE BLOOD COUNT 4800849 EOS % 2.7 % 3 Unknown COMPLETE BLOOD COUNT 4514042 BASO % 0.3 % 3 Unknown COMPLETE BLOOD COUNT 0939402 RDW 13.8 % 3 Unknown COMPLETE BLOOD COUNT 8585883 ABS CADEN 8.12 10e9/L 013 Unknown COMPLETE BLOOD COUNT 6679094 ABS LYMPH 2.67 10e9/L 013 Unknown COMPLETE BLOOD COUNT 3754325 ABS MONO 0.76 10e9/L 013 Unknown COMPLETE BLOOD COUNT 8472148 ABS EOS 0.32 10e9/L 013 Unknown COMPLETE BLOOD COUNT 3026762 ABS BASO 0.04 10e9/L 013 Unknown COMPLETE BLOOD COUNT 5372147 RDW-SD 45.6 fL 3 Unknown GFR CALC 4757128 GFR AA >60 ML/MIN 09/25/2012 Unknown GFR CALC 1012357 GFR NON-AA >60 ML/MIN 09/25/2012 Unknown ERYTHROCYTE SEDIMENTATION RATE 72389 ESR 19 MM/HR 05/06/2012 Unknown VITAMIN B 12 FOLIC ACID 04957|14043 VIT B 12 922 PG/ML 04/11 Unknown VITAMIN B 12 FOLIC ACID 86385|85664 FOLIC ACID 13.6 NG/ML Unknown URIC ACID 45101 URIC ACID 7.8 MG/DL 05/06/2012 Unknown COMPLETE BLOOD COUNT 98514 WBC 11.9 10e9/L 012 Unknown COMPLETE BLOOD COUNT 65475 RBC 5.30 10e12/L 2011 Unknown COMPLETE BLOOD COUNT 34523 HGB 16.6 g/dL 2 Unknown COMPLETE BLOOD COUNT 93829 HCT DET 47.2 % 2 Unknown COMPLETE BLOOD COUNT 14365 MCV 89.1 fL 2 Unknown COMPLETE BLOOD COUNT 56948 MCH 31.3 pg 2 Unknown COMPLETE BLOOD COUNT 08305 MCHC 35.2 g/dL 2 Unknown COMPLETE BLOOD COUNT 93490 PLT 362 10e9/L 05/06/20 12 Unknown COMPLETE BLOOD COUNT 25427 MPV 9.4 fL 2 Unknown COMPLETE BLOOD COUNT 01743 CADEN % 68.2 % 2 Unknown COMPLETE BLOOD COUNT 85835 LY % 22.0 % 2 Unknown COMPLETE BLOOD COUNT 97288 MON % 6.9 % 2 Unknown COMPLETE BLOOD COUNT 20472 EOS % 2.6 % 2 Unknown COMPLETE BLOOD COUNT 33301 BASO % 0.3 % 2 Unknown COMPLETE BLOOD COUNT 11217 RDW 12.8 % 2 Unknown COMPLETE BLOOD COUNT 55679 ABS CADEN 8.12 10e9/L 012 Unknown COMPLETE BLOOD COUNT 65982 ABS LYMPH 2.62 10e9/L 012 Unknown COMPLETE BLOOD COUNT 17679 ABS MONO 0.82 10e9/L 012 Unknown COMPLETE BLOOD COUNT 55637 ABS EOS 0.31 10e9/L 012 Unknown COMPLETE BLOOD COUNT 34865 ABS BASO 0.04 10e9/L 012 Unknown COMPLETE BLOOD COUNT 72415 RDW-SD 41.5 fL 2 Unknown GFR CALC 0853505 GFR AA >60 ML/MIN 05/06/2012 Unknown GFR CALC 7971072 GFR NON-AA 58.0L ML/MIN 05/06/2012 Unkno wn FREE T4 70714 FREE T4 1.15 NG/DL 05/06/2012 Unknown THYROID STIMULATING HORMONE 89067 TSH 1.568 uIU/ML 05/06/2012 Unknown COMPREHENSIVE METABOLIC 50679 AST 20 U/L 2011 Unknown COMPREHENSIVE METABOLIC 24346 ALT 12 IU/L 2011 Unknown COMPREHENSIVE METABOLIC 95310 BUN 20 MG/DL 2011 Unknown COMPREHENSIVE METABOLIC 66736 ALBUMIN 4.5 GM/DL 2011 Unknown COMPREHENSIVE METABOLIC 03287 CHLORIDE 91 MMOL/L 2011 Unknown COMPREHENSIVE METABOLIC 77635 BILI TOT 0.4 MG/DL 2011 Unknown COMPREHENSIVE METABOLIC 25763 ALK PHOS 73 U/L 2011 Unknown COMPREHENSIVE METABOLIC 62704 SODIUM 139 MMOL/L 05/06 Unknown COMPREHENSIVE METABOLIC 96843 CREATININE 1.02 MG/DL 04/11 Unknown COMPREHENSIVE METABOLIC 34779 CALCIUM 9.7 MG/DL 2011 Unknown COMPREHENSIVE METABOLIC 53769 POTASSIUM 3.1 MMOL/L 05/06 Unknown COMPREHENSIVE METABOLIC 81694 PROT TOT 7.3 GM/DL 2011 Unknown COMPREHENSIVE METABOLIC 84350 Glucose 118 MG/DL 2011 Unknown COMPREHENSIVE METABOLIC 86706 BICARB 33 MMOL/L 2011 Unknown COMPREHENSIVE METABOLIC 72886 ANION GAP 15 MEQ/L 2011 Unknown Procedures Procedure Codes Date ROUTINE VENIPUNCTURE CPT-4: 73755 09/29/2019 URINALYSIS NONAUTO W/O SCOPE CPT-4: 72945 09/29/2019 COMPREHEN METABOLIC PANEL CPT-4: 99200 09/29/2019 LIPID PANEL CPT-4: 89749 09/29/2019 A1C HPLC CPT-4: 90367 09/29/2019 ASSAY OF FREE THYROXINE CPT-4: 64136 09/29/2019 ASSAY THYROID STIM HORMONE CPT-4: 31099 09/29/2019 COMPLETE CBC W/AUTO DIFF WBC CPT-4: 52422 09/29/2019 URINALYSIS NONAUTO W/O SCOPE CPT-4: 59325 09/30/2018 MICROALBUMIN QUANTITATIVE CPT-4: 03190 09/30/2018 CEFTRIAXONE SODIUM INJECTION CPT-4: J0696 06/19/2018 THER/PROPH/DIAG INJ SC/IM CPT-4: 48902 06/19/2018 CEFTRIAXONE SODIUM INJECTION CPT-4: J0696 06/17/2018 THER/PROPH/DIAG INJ SC/IM CPT-4: 51872 06/17/2018 THER/PROPH/DIAG INJ SC/IM CPT-4: 11387 05/16/2018 KETOROLAC TROMETHAMINE INJ CPT-4: J1885 05/16/2018 ONDANSETRON HCL INJECTION CPT-4: J2405 05/16/2018 THER/PROPH/DIAG INJ SC/IM CPT-4: 88064 05/16/2018 ROUTINE VENIPUNCTURE CPT-4: 31165 03/20/2018 COMPREHEN METABOLIC PANEL CPT-4: 47929 03/20/2018 DEXAMETHASONE SODIUM PHOS CPT-4: J1100 02/11/2018 THER/PROPH/DIAG INJ SC/IM CPT-4: 62282 02/11/2018 TRIAMCINOLONE ACET INJ NOS CPT-4: J3301 02/11/2018 CEFTRIAXONE SODIUM INJECTION CPT-4: J0696 02/01/2018 THER/PROPH/DIAG INJ SC/IM CPT-4: 93665 02/01/2018 CEFTRIAXONE SODIUM INJECTION CPT-4: J0696 01/30/2018 THER/PROPH/DIAG INJ SC/IM CPT-4: 06311 01/30/2018 ROUTINE VENIPUNCTURE CPT-4: 09241 12/10/2017 ASSAY OF FREE THYROXINE CPT-4: 71657 12/10/2017 ASSAY THYROID STIM HORMONE CPT-4: 62104 12/10/2017 COMPREHEN METABOLIC PANEL CPT-4: 76909 12/10/2017 COMPLETE CBC W/AUTO DIFF WBC CPT-4: 43382 12/10/2017 LIPID PANEL CPT-4: 72611 12/10/2017 A1C HPLC CPT-4: 59876 12/10/2017 CEFTRIAXONE SODIUM INJECTION CPT-4: J0696 12/10/2017 THER/PROPH/DIAG INJ SC/IM CPT-4: 21338 12/10/2017 CEFTRIAXONE SODIUM INJECTION CPT-4: J0696 12/07/2017 THER/PROPH/DIAG INJ SC/IM CPT-4: 36039 12/07/2017 DEXAMETHASONE SODIUM PHOS CPT-4: J1100 12/07/2017 THER/PROPH/DIAG INJ SC/IM CPT-4: 90297 12/07/2017 CEFTRIAXONE SODIUM INJECTION CPT-4: J0696 10/08/2017 THER/PROPH/DIAG INJ SC/IM CPT-4: 94307 10/08/2017 CEFTRIAXONE SODIUM INJECTION CPT-4: J0696 09/21/2017 THER/PROPH/DIAG INJ SC/IM CPT-4: 67489 09/21/2017 CEFTRIAXONE SODIUM INJECTION CPT-4: J0696 09/20/2017 THER/PROPH/DIAG INJ SC/IM CPT-4: 33308 09/20/2017 REMOVAL OF NAIL PLATE CPT-4: 59194 08/29/2017 THER/PROPH/DIAG INJ SC/IM CPT-4: 34607 08/29/2017 TRIAMCINOLONE ACET INJ NOS CPT-4: J3301 08/29/2017 CEFTRIAXONE SODIUM INJECTION CPT-4: J0696 08/29/2017 THER/PROPH/DIAG INJ SC/IM CPT-4: 70446 08/29/2017 DESTRUCT PREMALG LESION (Cryosurgery) CPT-4: 90132 ROUTINE VENIPUNCTURE CPT-4: 99202 06/27/2017 ASSAY OF FREE THYROXINE CPT-4: 57193 06/27/2017 ASSAY THYROID STIM HORMONE CPT-4: 26794 06/27/2017 COMPREHEN METABOLIC PANEL CPT-4: 49133 06/27/2017 COMPLETE CBC W/AUTO DIFF WBC CPT-4: 76804 06/27/2017 EXC TR-EXT B9+REECE 0.5 CM< CPT-4: 53742 01/24/2017 THER/PROPH/DIAG INJ SC/IM CPT-4: 50415 08/02/2016 DEXAMETHASONE SODIUM PHOS CPT-4: J1100 08/02/2016 DESTRUCT PREMALG LESION (Cryosurgery) CPT-4: 84722 EXC TR-EXT B9+REECE 0.5 CM< CPT-4: 82058 08/01/2016 AEROBIC WOUND CULTURE & STN CPT-4: 60450 07/06/2016 CEFTRIAXONE SODIUM INJECTION CPT-4: J0696 05/25/2016 THER/PROPH/DIAG INJ SC/IM CPT-4: 96400 05/25/2016 THER/PROPH/DIAG INJ SC/IM CPT-4: 66311 04/26/2016 DEXAMETHASONE SODIUM PHOS CPT-4: J1100 04/26/2016 CEFTRIAXONE SODIUM INJECTION CPT-4: J0696 04/26/2016 THER/PROPH/DIAG INJ SC/IM CPT-4: 17817 04/26/2016 THER/PROPH/DIAG INJ SC/IM CPT-4: 47663 02/09/2016 TRIAMCINOLONE ACET INJ NOS CPT-4: J3301 02/09/2016 URINALYSIS NONAUTO W/O SCOPE CPT-4: 77695 01/24/2016 URINE CULTURE/ COLONY COUNT CPT-4: 68167 01/24/2016 THER/PROPH/DIAG INJ SC/IM CPT-4: 76411 12/08/2015 TRIAMCINOLONE ACET INJ NOS CPT-4: J3301 12/08/2015 THER/PROPH/DIAG INJ SC/IM CPT-4: 74119 10/07/2015 TRIAMCINOLONE ACET INJ NOS CPT-4: J3301 10/07/2015 DESTRUCT PREMALG LESION (Cryosurgery) CPT-4: 12175 THER/PROPH/DIAG INJ SC/IM CPT-4: 91677 03/16/2015 METHYLPREDNISOLONE 40 MG INJ CPT-4: J1030 03/16/2015 DESTRUCT PREMALG LESION (Cryosurgery) CPT-4: 48587 THER/PROPH/DIAG INJ SC/IM CPT-4: 51917 09/11/2014 METHYLPREDNISOLONE 40 MG INJ CPT-4: J1030 09/11/2014 TRIAMCINOLONE ACET INJ NOS CPT-4: J3301 09/11/2014 CEFTRIAXONE SODIUM INJECTION CPT-4: J0696 09/11/2014 THER/PROPH/DIAG INJ SC/IM CPT-4: 70475 09/11/2014 ROUTINE VENIPUNCTURE CPT-4: 14777 08/27/2014 COMPREHEN METABOLIC PANEL CPT-4: 02465 08/27/2014 COMPLETE CBC W/AUTO DIFF WBC CPT-4: 15343 08/27/2014 LIPID PANEL CPT-4: 11103 08/27/2014 ROUTINE VENIPUNCTURE CPT-4: 46296 07/21/2014 ASSAY OF AMYLASE CPT-4: 14815 07/21/2014 ASSAY OF LIPASE CPT-4: 36101 07/21/2014 THER/PROPH/DIAG INJ SC/IM CPT-4: 37179 07/15/2014 TRIAMCINOLONE ACET INJ NOS CPT-4: J3301 07/15/2014 ROUTINE VENIPUNCTURE CPT-4: 95279 05/14/2014 ASSAY OF FREE THYROXINE CPT-4: 85001 05/14/2014 ASSAY THYROID STIM HORMONE CPT-4: 21362 05/14/2014 COMPREHEN METABOLIC PANEL CPT-4: 54036 05/14/2014 COMPLETE CBC W/AUTO DIFF WBC CPT-4: 22214 05/14/2014 LIPID PANEL CPT-4: 24567 05/14/2014 CEFTRIAXONE SODIUM INJECTION CPT-4: J0696 04/21/2014 THER/PROPH/DIAG INJ SC/IM CPT-4: 21299 04/21/2014 THER/PROPH/DIAG INJ SC/IM CPT-4: 08396 04/21/2014 TRIAMCINOLONE ACET INJ NOS CPT-4: J3301 04/21/2014 THER/PROPH/DIAG INJ SC/IM CPT-4: 84940 03/04/2014 METHYLPREDNISOLONE 40 MG INJ CPT-4: J1030 03/04/2014 TRIAMCINOLONE ACET INJ NOS CPT-4: J3301 03/04/2014 CEFTRIAXONE SODIUM INJECTION CPT-4: J0696 03/04/2014 THER/PROPH/DIAG INJ SC/IM CPT-4: 46326 03/04/2014 TDAP VACCINE 7 YRS/> IM CPT-4: 62237 02/27/2014 IMMUNIZATION ADMIN CPT-4: 12616 02/27/2014 DESTRUCT PREMALG LESION (Cryosurgery) CPT-4: 13294 DESTRUCT PREMALG LES 2-14 CPT-4: 55123 01/13/2014 THER/PROPH/DIAG INJ SC/IM CPT-4: 78514 10/21/2013 METHYLPREDNISOLONE 40 MG INJ CPT-4: J1030 10/21/2013 TRIAMCINOLONE ACET INJ NOS CPT-4: J3301 10/21/2013 CEFTRIAXONE SODIUM INJECTION CPT-4: J0696 08/27/2013 THER/PROPH/DIAG INJ SC/IM CPT-4: 94602 08/27/2013 THER/PROPH/DIAG INJ SC/IM CPT-4: 01086 08/27/2013 METHYLPREDNISOLONE 40 MG INJ CPT-4: J1030 08/27/2013 TRIAMCINOLONE ACET INJ NOS CPT-4: J3301 08/27/2013 THER/PROPH/DIAG INJ SC/IM CPT-4: 92776 06/23/2013 METHYLPREDNISOLONE 40 MG INJ CPT-4: J1030 06/23/2013 TRIAMCINOLONE ACET INJ NOS CPT-4: J3301 06/23/2013 THER/PROPH/DIAG INJ SC/IM CPT-4: 69670 05/26/2013 METHYLPREDNISOLONE 40 MG INJ CPT-4: J1030 05/26/2013 TRIAMCINOLONE ACET INJ NOS CPT-4: J3301 05/26/2013 ROUTINE VENIPUNCTURE CPT-4: 06898 03/05/2013 ASSAY OF FREE THYROXINE CPT-4: 45455 03/05/2013 ASSAY THYROID STIM HORMONE CPT-4: 09988 03/05/2013 COMPREHEN METABOLIC PANEL CPT-4: 72544 03/05/2013 COMPLETE CBC W/AUTO DIFF WBC CPT-4: 60751 03/05/2013 A1C GLYCOSYLATED HEMOGLOBIN TEST CPT-4: 28525 013 DRAIN/INJECT JOINT/BURSA CPT-4: 90860 12/04/2012 METHYLPREDNISOLONE 40 MG INJ CPT-4: J1030 12/04/2012 TRIAMCINOLONE ACET INJ NOS CPT-4: J3301 12/04/2012 CEFTRIAXONE SODIUM INJECTION CPT-4: J0696 11/21/2012 THER/PROPH/DIAG INJ SC/IM CPT-4: 35563 11/21/2012 THER/PROPH/DIAG INJ SC/IM CPT-4: 71017 10/14/2012 METHYLPREDNISOLONE 40 MG INJ CPT-4: J1030 10/14/2012 TRIAMCINOLONE ACET INJ NOS CPT-4: J3301 10/14/2012 URINALYSIS NONAUTO W/O SCOPE CPT-4: 54605 09/27/2012 ROUTINE VENIPUNCTURE CPT-4: 57455 09/25/2012 ASSAY OF FREE THYROXINE CPT-4: 76651 09/25/2012 ASSAY THYROID STIM HORMONE CPT-4: 24408 09/25/2012 COMPREHEN METABOLIC PANEL CPT-4: 08967 09/25/2012 COMPLETE CBC W/AUTO DIFF WBC CPT-4: 62153 09/25/2012 C-REACTIVE PROTEIN CPT-4: 66897 09/25/2012 THER/PROPH/DIAG INJ SC/IM CPT-4: 89487 08/29/2012 METHYLPREDNISOLONE 40 MG INJ CPT-4: J1030 08/29/2012 TRIAMCINOLONE ACET INJ NOS CPT-4: J3301 08/29/2012 DESTRUCT PREMALG LESION (Cryosurgery) CPT-4: 05566 THER/PROPH/DIAG INJ SC/IM CPT-4: 91805 05/06/2012 METHYLPREDNISOLONE 40 MG INJ CPT-4: J1030 05/06/2012 TRIAMCINOLONE ACET INJ NOS CPT-4: J3301 05/06/2012 VITAMIN B 12 FOLIC ACID CPT-4: 81774|50192 05/06/2012 RBC SED RATE AUTOMATED CPT-4: 05917 05/06/2012 ROUTINE VENIPUNCTURE CPT-4: 22578 05/06/2012 ASSAY OF FREE THYROXINE CPT-4: 82960 05/06/2012 ASSAY THYROID STIM HORMONE CPT-4: 25013 05/06/2012 COMPREHEN METABOLIC PANEL CPT-4: 96978 05/06/2012 COMPLETE CBC W/AUTO DIFF WBC CPT-4: 23461 05/06/2012 ASSAY OF BLOOD/URIC ACID CPT-4: 73719 05/06/2012 THER/PROPH/DIAG INJ SC/IM CPT-4: 49235 03/19/2012 KETOROLAC TROMETHAMINE INJ CPT-4: J1885 03/19/2012 KETOROLAC TROMETHAMINE INJ CPT-4: J1885 01/30/2012 THER/PROPH/DIAG INJ SC/IM CPT-4: 72337 01/30/2012 PROMETHAZINE HCL INJECTION CPT-4: J2550 01/30/2012 THER/PROPH/DIAG INJ SC/IM CPT-4: 68472 01/24/2012 METHYLPREDNISOLONE 40 MG INJ CPT-4: J1030 01/24/2012 TRIAMCINOLONE ACET INJ NOS CPT-4: J3301 01/24/2012 THER/PROPH/DIAG INJ SC/IM CPT-4: 87310 09/13/2011 KETOROLAC TROMETHAMINE INJ CPT-4: J1885 09/13/2011 THER/PROPH/DIAG INJ SC/IM CPT-4: 35855 09/13/2011 PROMETHAZINE HCL INJECTION CPT-4: J2550 09/13/2011 CEFTRIAXONE SODIUM INJECTION CPT-4: J0696 07/20/2011 THER/PROPH/DIAG INJ SC/IM CPT-4: 42159 07/20/2011 THER/PROPH/DIAG INJ SC/IM CPT-4: 97328 07/20/2011 METHYLPREDNISOLONE INJECTION CPT-4: J2930 07/20/2011 URINALYSIS NONAUTO W/O SCOPE CPT-4: 79194 05/09/2011 CEFTRIAXONE SODIUM INJECTION CPT-4: J0696 05/09/2011 THER/PROPH/DIAG INJ SC/IM CPT-4: 86926 05/09/2011 THER/PROPH/DIAG INJ SC/IM CPT-4: 57168 05/09/2011 PROMETHAZINE HCL INJECTION CPT-4: J2550 05/09/2011 HYDRATION IV INFUSION INIT CPT-4: 66717 05/09/2011 DESTRUCT PREMALG LESION (Cryosurgery) CPT-4: 49026 DESTRUCT PREMALG LES 2-14 CPT-4: 31094 07/19/2010 REMOVAL OF SKIN TAGS <W/15 CPT-4: 40791 05/30/2010 THER/PROPH/DIAG INJ SC/IM CPT-4: 89958 04/05/2010 CEFTRIAXONE SODIUM INJECTION CPT-4: J0696 04/05/2010 TRIAMCINOLONE ACET INJ NOS CPT-4: J3301 04/05/2010 METHYLPREDNISOLONE 40 MG INJ CPT-4: J1030 04/05/2010 THER/PROPH/DIAG INJ SC/IM CPT-4: 21397 04/05/2010 TRIAMCINOLONE ACET INJ NOS CPT-4: J3301 03/09/2010 METHYLPREDNISOLONE 40 MG INJ CPT-4: J1030 03/09/2010 THER/PROPH/DIAG INJ SC/IM CPT-4: 10823 03/09/2010 THER/PROPH/DIAG INJ SC/IM CPT-4: 56023 03/09/2010 CEFTRIAXONE SODIUM INJECTION CPT-4: J0696 03/09/2010 Vital Signs Date Vital 10/07/2019 Blood Pressure 1: 134/82 Code: 8480-6 Heart Rate 1: 105 bpm Respiratory Rate: 17 bpm SpO2: 96% Temperature: 36.8 (C) / 98.2 (F) We ight: 198 lbs 09/30/2019 Blood Pressure 1: 132/80 Code: 8480-6 BMI: 35.8 Code: 85399-3 Heart Rate 1: 88 bpm Height: 5'4" Respiratory Rate: 20 bpm SpO2: 95% Tempera ture: 36.9 (C) / 98.5 (F) Weight: 210 lbs 05/28/2019 Blood Pressure 1: 126/82 Code: 8480-6 BMI: 35.0 Code: 22051-0 Heart Rate 1: 88 bpm Height: 5'4" [...] 1: 128/90 Code: 8480-6 BMI: 37.2 Code: 11424-8 Heart Rate 1: 84 bpm Height: 5'4" Respiratory Rate: 20 bpm SpO2: 95% Tempera ture: 36.6 (C) / 97.8 (F) Weight: 217 lbs 08/27/2018 Blood Pressure 1: 128/88 Code: 8480-6 BMI: 38.3 Code: 35901-5 Heart Rate 1: 84 bpm Height: 5'4" [...] 1: 119/72 Code: 8480-6 BMI: 37.4 Code: 36341-9 Heart Rate 1: 82 bpm Height: 5'4" Respiratory Rate: 12 bpm SpO2: 94% Tempera ture: 35.2 (C) / 95.4 (F) Weight: 218 lbs 12/18/2017 Blood Pressure 1: 128/86 Code: 8480-6 BMI: 37.8 Code: 39966-2 Heart Rate 1: 84 bpm Height: 5'4" [...] 1: 128/82 Code: 8480-6 BMI: 35.5 Code: 04166-9 Heart Rate 1: 84 bpm Height: 5'4" [...] 1: 128/82 Code: 8480-6 BMI: 30.2 Code: 36809-7 Heart Rate 1: 80 bpm Height: 5'4" [...] 1: 128/86 Code: 8480-6 BMI: 32.8 Code: 81153-1 Heart Rate 1: 66 bpm Height: 5'4" Respiratory Rate: 18 bpm Temperature: 36 .3 (C) / 97.3 (F) Weight: 191 lbs 06/23/2013 Blood Pressure 1: 132/94 Code: 8480-6 BMI: 34.0 Code: 46792-6 Heart Rate 1: 84 bpm Height: 5'4" Respiratory Rate: 20 bpm Temperature: 36 .8 (C) / 98.2 (F) Weight: 198 lbs 05/26/2013 Blood Pressure 1: 114/80 Code: 8480-6 BMI: 35.0 Code: 50665-6 Heart Rate 1: 80 bpm Height: 5'4" Respiratory Rate: 20 bpm Temperature: 36 .4 (C) / 97.6 (F) Weight: 204 lbs 04/16/2013 Blood Pressure 1: 114/82 Code: 8480-6 BMI: 36.7 Code: 08736-7 Heart Rate 1: 84 bpm Height: 5'4" Respiratory Rate: 20 bpm Temperature: 36 .7 (C) / 98.0 (F) Weight: 214 lbs 03/05/2013 Blood Pressure 1: 136/90 Code: 8480-6 BMI: 37.1 Code: 02669-2 Heart Rate 1: 84 bpm Height: 5'4" [...] 1: 168/114 Code: 8480-6 BMI: 36.2 Code: 32651-1 Heart Rate 1: 104 bpm Height: 5'4" Respiratory Rate: 20 bpm Temperature: 36 .8 (C) / 98.2 (F) Weight: 211 lbs 11/22/2012 Blood Pressure 1: 128/90 Code: 8480-6 Heart Rate 1: 88 bpm Respiratory Rate: 20 bpm SpO2: 96% Temperature: 36.8 (C) / 98.2 (F) 11/21/2012 Blood Pressure 1: 146/100 Code: 8480-6 BMI: 35.7 Code: 57249-6 Heart Rate 1: 96 bpm Height: 5'4" [...] 1: 138/100 Code: 8480-6 BMI: 35.7 Code: 85283-6 Heart Rate 1: 96 bpm Height: 5'4" Respiratory Rate: 20 bpm Temperature: 36 .8 (C) / 98.2 (F) Weight: 208 lbs 05/06/2012 Blood Pressure 1: 154/102 Code: 8480-6 BMI: 34.7 Code: 10387-2 Heart Rate 1: 116 bpm Height: 5'4" Respiratory Rate: 20 bpm Temperature: 36 .8 (C) / 98.2 (F) Weight: 202 lbs 04/03/2012 Blood Pressure 1: 134/94 Code: 8480-6 BMI: 34.8 Code: 26943-9 Heart Rate 1: 108 bpm Height: 5'4" Respiratory Rate: 20 bpm Temperature: 36 .8 (C) / 98.2 (F) Weight: 203 lbs 03/19/2012 Blood Pressure 1: 148/106 Code: 8480-6 BMI: 35.0 Code: 34402-4 Heart Rate 1: 100 bpm Height: 5'4" Respiratory Rate: 20 bpm Temperature: 36 .6 (C) / 97.9 (F) Weight: 204 lbs 02/22/2012 Blood Pressure 1: 146/94 Code: 8480-6 He art Rate 1: 88 bpm 02/21/2012 Blood Pressure 1: 172/120 Code: 8480-6 B lood Pressure 2: 152/106 Code: 8480-6 Heart Rate 1: 116 bpm 02/20/2012 Blood Pressure 1: 160/100 Code: 8480-6 BMI: 32.0 Code: 61597-4 Heart Rate 1: 84 bpm Height: 5'7" Temperature: 36.5 (C) / 97.7 (F) Weight: 204 lbs 01/30/2012 Blood Pressure 1: 152/110 Code: 8480-6 BMI: 32.0 Code: 18118-9 Heart Rate 1: 116 bpm Height: 5'7" Respiratory Rate: 20 bpm Temperature: 37 .0 (C) / 98.6 (F) Weight: 204 lbs 01/24/2012 Blood Pressure 1: 146/100 Code: 8480-6 BMI: 32.0 Code: 95479-4 Heart Rate 1: 100 bpm Height: 5'7" Respiratory Rate: 20 bpm Temperature: 36 .7 (C) / 98.0 (F) Weight: 204 lbs 01/10/2012 Blood Pressure 1: 156/94 Code: 8480-6 BMI: 32.6 Code: 37495-5 Heart Rate 1: 72 bpm Height: 5'7" Respiratory Rate: 20 bpm Temperature: 36 .8 (C) / 98.2 (F) Weight: 208 lbs 12/11/2011 Blood Pressure 1: 146/100 Code: 8480-6 Heart Rat e 1: 116 bpm Height: 5'7" Respiratory Rate: 20 bpm Temperature: 36.9 (C) / 98.4 (F) We ight: 11/09/2011 Blood Pressure 1: 148/96 Code: 8480-6 BMI: 32.1 Code: 70306-9 Heart Rate 1: 116 bpm Height: 5'7" Respiratory Rate: 20 bpm Temperature: 36 .7 (C) / 98.0 (F) Weight: 205 lbs 09/13/2011 Blood Pressure 1: 126/88 Code: 8480-6 Heart Rate 1: 88 bpm Height: 5'7" Respiratory Rate: 20 bpm Temperature: 36.9 (C) / 98.4 (F) We ight: 08/31/2011 Blood Pressure 1: 118/82 Code: 8480-6 BMI: 32.0 Code: 86977-6 Heart Rate 1: 80 bpm Height: 5'7" Temperature: 36.4 (C) / 97.6 (F) Weight: 204 lbs 07/06/2011 Blood Pressure 1: 128/86 Code: 8480-6 BMI: 30.9 Code: 06603-7 Heart Rate 1: 92 bpm Height: 5'7" Respiratory Rate: 20 bpm Temperature: 36 .9 (C) / 98.4 (F) Weight: 197 lbs 06/06/2011 Blood Pressure 1: 112/74 Code: 8480-6 BMI: 31.0 Code: 83185-0 Heart Rate 1: 72 bpm Height: 5'7" [...] 1: 128/92 Code: 8480-6 BMI: 33.6 Code: 49871-7 Heart Rate 1: 104 bpm Height: 5'4" [...] Check-up Encounters Encounter Performer Location Codes Date ([id number]) OFFICE/OUTPATIENT VISIT EST Diagnosis: Ingrowing nail[ICD10: L60.0] Diagnosis: Type 2 diabetes mellitus with hyperglycemia[ICD10: E11.65] Kahtleen ELLISLINE Fabiola APPIAH [employer] CPT-4: 48255 10/07/2019 ([id number]) OFFICE/OUTPATIENT VISIT EST Diagnosis: DM w/o complication type II, uncontrolled[ICD10: E11.65] Diagnosis: Hypertriglyceridemia[ICD10: E78.1] Diagnosis: Essential hypertension[ICD10: I10] María Elena BASURTO TED APIPAH [employer] CPT-4: 97715 09/30/2019 ([id number]) NURSE/OUTPATIENT VISIT EST Diagnosis: Essential (primary) hypertension[ICD10: I10] Diagnosis: Cervicalgia[ICD10: M54.2] Diagnosis: Hyperglycemia, unspecified[ICD10: R73.9] Diagnosis: Mixed hyperlipidemia[ICD10: E78.2] María Elena BASURTO TED [employer] APPIAH [employer] CPT-4: 51015 09/29/2019 ([id number]) OFFICE/OUTPATIENT VISIT EST Diagnosis: Essential (primary) hypertension[ICD10: I10] Diagnosis: Fall from bed, sequela[ICD10: W06.XXXS] María Elena REED LucioJj TD [employer] CPT-4: 09906 05/28/2019 ([id number]) NURSE/OUTPATIENT VISIT EST Diagnosis: Essential (primary) hypertension[ICD10: I10] María Elena JUARES LucioJj TD [employer] CPT-4: 20278 05/19/2019 ([id number]) OFFICE/OUTPATIENT VISIT EST Diagnosis: Essential (primary) hypertension[ICD10: I10] Diagnosis: Type 2 diabetes mellitus with hyperglycemia[ICD10: E11.65] Diagnosis: Intervertebral disc disorders with radiculopathy, 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] Diagnosis: Hormone replacement therapy[ICD10: Z79.890] María Elena JUARES LucioJj TD [employer] CPT-4: 67286 01/22/2019 ([id number]) OFFICE/OUTPATIENT VISIT EST Diagnosis: Essential (primary) hypertension[ICD10: I10] Diagnosis: Type 2 diabetes mellitus with hyperglycemia[ICD10: E11.65] María Elena APPIAH [facility] CPT-4: 25428 09/30/2018 ([id number]) OFFICE/OUTPATIENT VISIT EST Diagnosis: Pain in left elbow[ICD10: M25.522] Diagnosis: Acute stress reaction[ICD10: F43.0] Diagnosis: Primary insomnia[ICD10: F51.01] Diagnosis: Abnormal weight gain[ICD10: R63.5] María Elena APPIAH [facility] CPT-4: 17309 08/27/2018 ([id number]) OFFICE/OUTPATIENT VISIT EST Diagnosis: Acute recurrent sinusitis, unspecified[ICD10: J01.91] Diagnosis: Follicular disorder, unspecified[ICD10: L73.9] Diagnosis: Tinea corporis[ICD10: B35.4] María Elena APPIAH [facility] CPT-4: 31138 08/09/2018 ([id number]) OFFICE/OUTPATIENT VISIT EST Diagnosis: Tinea corporis[ICD10: B35.4] Diagnosis: Anxiety disorder, unspecified[ICD10: F41.9] Diagnosis: Menopausal and female climacteric states[ICD10: N95.1] María Elena APPIAH [facility] CPT-4: 22925 07/22/2018 ([id number]) NURSE/OUTPATIENT VISIT EST Diagnosis: Cellulitis of right toe[ICD10: L03.031] María Elena APPIAH [facility] CPT-4: 28326 06/19/2018 ([id number]) OFFICE/OUTPATIENT VISIT EST Diagnosis: Cellulitis of right toe[ICD10: L03.031] Kathleen Leijaimaldi KYLAH APPIAH [facility] CPT-4: 10758 06/17/2018 ([id number]) OFFICE/OUTPATIENT VISIT EST Diagnosis: Migraine without aura, intractable, without status migrainosus[ICD10: G43.019] Diagnosis: Zoster without complications[ICD10: B02.9] Kathleen Leijaimaldi MARÍA ELENA APPIAH [facility] CPT-4: 80547 05/16/2018 ([id number]) OFFICE/OUTPATIENT VISIT EST Diagnosis: Cellulitis of right lower limb[ICD10: L03.115] Kathleen APPIAH DO [facility] CPT-4: 44714 03/20/2018 ([id number]) OFFICE/OUTPATIENT VISIT EST Diagnosis: Cellulitis of right lower limb[ICD10: L03.115] Kathleen APPIAH DO [facility] CPT-4: 29146 03/18/2018 ([id number]) OFFICE/OUTPATIENT VISIT EST Diagnosis: Cellulitis of right lower limb[ICD10: L03.115] Kathleen APPIAH DO [facility] CPT-4: 45714 03/15/2018 ([id number]) OFFICE/OUTPATIENT VISIT EST Diagnosis: Acute sinusitis, unspecified[ICD10: J01.90] Kathleen APPIAH DO [facility] CPT-4: 00425 02/11/2018 ([id number]) NURSE/OUTPATIENT VISIT EST Diagnosis: Otitis media, unspecified, right ear[ICD10: H66.91] María Elena APPIAH [employer] [facility] CPT-4: 13728 02/01/2018 ([id number]) OFFICE/OUTPATIENT VISIT EST Diagnosis: Acute suppurative otitis media without spontaneous rupture of ear drum, left ear[ICD10: H66.002] Diagnosis: Abnormal weight gain[ICD10: R63.5] Diagnosis: Intervertebral disc disorders with radiculopathy, 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] Kathleen APPIAH DO [facility] CPT-4: 99 214 01/30/2018 ([id number]) PREV VISIT EST AGE 40-64 Diagnosis: Encounter for general adult medical examination without abnormal findings[ICD10: Z00.00] Diagnosis: Essential (primary) hypertension[ICD10: I10] Diagnosis: Mixed hyperlipidemia[ICD10: E78.2] Diagnosis: Type 2 diabetes mellitus with hyperglycemia[ICD10: E11.65] Diagnosis: 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] María Elena APPIAH [employer] [facility] CPT-4: 99071 12/18/2017 ([id number]) OFFICE/OUTPATIENT VISIT EST Diagnosis: Cellulitis of right toe[ICD10: L03.031] Diagnosis: Mixed hyperlipidemia[ICD10: E78.2] Diagnosis: Essential (primary) hypertension[ICD10: I10] Diagnosis: Hyperglycemia, unspecified[ICD10: R73.9] Diagnosis: Nontoxic goiter, 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] María Elena APPIAH DO [facility] CPT-4: 01342 12/10/2017 ([id number]) OFFICE/OUTPATIENT VISIT EST Diagnosis: Cellulitis of right toe[ICD10: L03.031] Diagnosis: Acute sinusitis, unspecified[ICD10: J01.90] Kathleen APPIAH DO [facility] CPT-4: 55789 12/07/2017 OFFICE/OUTPATIENT VISIT EST Diagnosis: Acute maxillary sinusitis, unspecified[ICD10: J01.00] Kathleen APPIAH DO [facility] CPT-4: 20173 10/08/2017 ([id number]) OFFICE/OUTPATIENT VISIT EST Diagnosis: Cellulitis of left toe[ICD10: L03.032] María Elena ISAAC fflickJARED APPIAH [facility] CPT-4: 74372 09/21/2017 ([id number]) OFFICE/OUTPATIENT VISIT EST Diagnosis: Insomnia, unspecified[ICD10: G47.00] Diagnosis: Major depressive disorder, single episode, unspecified[ICD10: F32.9] Diagnosis: Anxiety disorder, unspecified[ICD10: F41.9] Diagnosis: Cellulitis of left toe[ICD10: L03.032] Diagnosis: Snoring[ICD10: R06.83] Kathleen APPIAH DO [facility] CPT-4: 99927 09/20/2017 ([id number]) OFFICE/OUTPATIENT VISIT EST Diagnosis: Cellulitis of left toe[ICD10: L03.032] María Elena APPIAH DO [facility] CPT-4: 44733 07/19/2017 OFFICE/OUTPATIENT VISIT EST Diagnosis: Chronic sinusitis, unspecified[ICD10: J32.9] Diagnosis: Generalized hyperhidrosis[ICD10: R61] Kathleen APPIAH DO [facility] CPT-4: 16048 06/27/2017 ([id number]) OFFICE/OUTPATIENT VISIT EST Diagnosis: Intervertebral disc disorders with radiculopathy, 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] Diagnosis: Primary insomnia[ICD10: F51.01] Diagnosis: Other fatigue[ICD10: R53.83] María Elena APPIAH DO [facility] CPT-4: 20210 04/10/2017 ([id number]) OFFICE/OUTPATIENT VISIT EST Diagnosis: Primary insomnia[ICD10: F51.01] Diagnosis: Localized edema[ICD10: R60.0] Diagnosis: 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] María Elena APPIAH DO [facility] CPT-4: 35589 12/13/2016 ([id number]) OFFICE/OUTPATIENT VISIT EST Diagnosis: Primary insomnia[ICD10: F51.01] Diagnosis: Cyanosis[ICD10: R23.0] María Elena Bazzi [employer] [facility] CPT-4: 77517 11/01/2016 ([id number]) PREV VISIT EST AGE 40-64 Diagnosis: Encounter for gynecological examination (general) (routine) without abnormal findings[ICD10: Z01.419] Diagnosis: Encounter for routine child health examination without abnormal findings[ICD10: Z00.129] María Elena APPIAH [employer] [facility] CPT-4: 89491 10/17/2016 ([id number]) OFFICE/OUTPATIENT VISIT EST Diagnosis: Other seasonal allergic rhinitis[ICD10: J30.2] María Elena APPIAH DO [facility] CPT-4: 54458 10/10/2016 ([id number]) OFFICE/OUTPATIENT VISIT EST Diagnosis: Pain in left arm[ICD10: M79.602] Diagnosis: Contact with and (suspected) exposure to potentially hazardous body fluids[ICD10: Z77.21] Diagnosis: 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, 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] Diagnosis: Unspecified open wound, right foot, sequela[ICD10: S91.301S] María Elena APPIAH [employer] [facility] CPT-4: 95365 09/19/2016 ([id number]) OFFICE/OUTPATIENT VISIT EST Diagnosis: Chronic sinusitis, unspecified[ICD10: J32.9] Diagnosis: Allergic rhinitis due to pollen[ICD10: J30.1] María Elena APPIAH DO [facility] CPT-4: 95347 08/24/2016 ([id number]) OFFICE/OUTPATIENT VISIT EST Diagnosis: Acute bronchitis, unspecified[ICD10: J20.9] María Elena APPIAH DO [facility] CPT-4: 92107 08/16/2016 ([id number]) OFFICE/OUTPATIENT VISIT EST Diagnosis: Otitis media, unspecified, right ear[ICD10: H66.91] Diagnosis: Acute bronchitis, unspecified[ICD10: J20.9] María Elena APPIAH DO [facility] CPT-4: 00374 08/10/2016 ([id number]) OFFICE/OUTPATIENT VISIT EST Diagnosis: Acute recurrent sinusitis, unspecified[ICD10: J01.91] Diagnosis: Allergic rhinitis due to pollen[ICD10: J30.1] María Elena APPIAH [employer] [facility] CPT-4: 85076 08/02/2016 ([id number]) OFFICE/OUTPATIENT VISIT EST Diagnosis: Pain in unspecified joint[ICD10: M25.50] María Elena APPIAH DO [facility] CPT-4: 52582 07/27/2016 OFFICE/OUTPATIENT VISIT EST Diagnosis: 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] Diagnosis: Acute recurrent sinusitis, unspecified[ICD10: J01.91] Diagnosis: Other fatigue[ICD10: R53.83] Diagnosis: Primary insomnia[ICD10: F51.01] Diagnosis: Pain in unspecified joint[ICD10: M25.50] María Elena APPIAH [employer] [facility] CPT-4: 88478 07/20/2016 ([id number]) OFFICE/OUTPATIENT VISIT EST Diagnosis: Blister (nonthermal), left great toe, initial encounter[ICD10: S90.422A] Loan APPIAH DO [facility] CPT-4: 88963 ([id number]) OFFICE/OUTPATIENT VISIT EST Diagnosis: Acute recurrent sinusitis, unspecified[ICD10: J01.91] María Elena APPIAH DO [facility] CPT-4: 48122 05/25/2016 ([id number]) OFFICE/OUTPATIENT VISIT EST Diagnosis: Acute sinusitis, unspecified[ICD10: J01.90] María Elena APPIAH DO [facility] CPT-4: 41218 04/26/2016 ([id number]) OFFICE/OUTPATIENT VISIT EST Diagnosis: Flushing[ICD10: R23.2] Diagnosis: Primary insomnia[ICD10: F51.01] María Elena APPIAH DO [facility] CPT-4: 96728 03/02/2016 ([id number]) OFFICE/OUTPATIENT VISIT EST Diagnosis: Other seasonal allergic rhinitis[ICD10: J30.2] Loan APPIAH DO [facility] CPT-4: 23616 02/09/2016 ([id number]) OFFICE/OUTPATIENT VISIT EST Diagnosis: Primary insomnia[ICD10: F51.01] Diagnosis: Urinary tract infection, site not specified[ICD10: N39.0] María Elena APPIAH DO [facility] CPT-4: 50750 01/24/2016 ([id number]) OFFICE/OUTPATIENT VISIT EST Diagnosis: Other specified disorders of Eustachian tube, bilateral[ICD10: H69.83] Diagnosis: Allergic rhinitis, unspecified[ICD10: J30.9] Loan APPIAH DO [facility] CPT-4: 97748 12/23/2015 ([id number]) OFFICE/OUTPATIENT VISIT EST Diagnosis: Acute recurrent sinusitis, unspecified[ICD10: J01.91] Diagnosis: 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] Diagnosis: Allergic rhinitis, unspecified[ICD10: J30.9] María Elena APPIAH DO [facility] CPT-4: 66573 12/08/2015 ([id number]) OFFICE/OUTPATIENT VISIT EST Diagnosis: Allergic rhinitis, unspecified[ICD10: J30.9] Diagnosis: Pain in unspecified joint[ICD10: M25.50] María Elena APPIAH DO [facility] CPT-4: 17990 10/07/2015 ([id number]) OFFICE/OUTPATIENT VISIT EST Diagnosis: Essential (primary) hypertension[ICD10: I10] María Elena APPIAH DO [facility] CPT-4: 28200 10/06/2015 OFFICE/OUTPATIENT VISIT EST Diagnosis: Localized enlarged lymph nodes[ICD10: R59.0] Diagnosis: Local infection of the skin and subcutaneous tissue, unspecified[ICD10: L08.9] June VelozAlbertadaniella APPIAH DO [facility] CPT- 4: 30004 09/14/2015 ([id number]) OFFICE/OUTPATIENT VISIT EST Diagnosis: Essential (primary) hypertension[ICD10: I10] Diagnosis: Actinic keratosis[ICD10: L57.0] María Elena APPIAH DO [facility] CPT-4: 77176 09/07/2015 ([id number]) OFFICE/OUTPATIENT VISIT EST Diagnosis: Essential (primary) hypertension[ICD10: I10] Diagnosis: Acute stress reaction[ICD10: F43.0] María Elena APPIAH DO [facility] CPT-4: 70590 08/18/2015 ([id number]) OFFICE/OUTPATIENT VISIT EST Diagnosis: Essential (primary) hypertension[ICD10: I10] María Elena APPIAH DO [facility] CPT-4: 65141 07/07/2015 ([id number]) OFFICE/OUTPATIENT VISIT EST Diagnosis: Essential (primary) hypertension[ICD10: I10] María Elena APPIAH DO [facility] CPT-4: 46690 06/24/2015 ([id number]) OFFICE/OUTPATIENT VISIT EST Diagnosis: Essential (primary) hypertension[ICD10: I10] María Elena APPIAH DO [facility] CPT-4: 99831 06/21/2015 ([id number]) OFFICE/OUTPATIENT VISIT EST Diagnosis: Essential (primary) hypertension[ICD10: I10] Diagnosis: Mixed hyperlipidemia[ICD10: E78.2] Diagnosis: Acute stress reaction[ICD10: F43.0] Diagnosis: Primary insomnia[ICD10: F51.01] María Elena APPIAH [facility] CPT-4: 63738 06/16/2015 ([id number]) OFFICE/OUTPATIENT VISIT EST Diagnosis: INSOMNIA NOS[ICD9: 780.52] Diagnosis: HYPERTENSION[ICD9: 401.9] Diagnosis: Stress reaction[ICD9: 308.9] María Elena APPIAH [facility] CPT-4: 94074 06/02/2015 ([id number]) OFFICE/OUTPATIENT VISIT EST Diagnosis: HYPERTENSION[ICD9: 401.9] Diagnosis: Stress reaction[ICD9: 308.9] María Elena APPIAH [facility] CPT-4: 84025 05/20/2015 ([id number]) OFFICE/OUTPATIENT VISIT EST Diagnosis: Skin lesion[ICD9: 709.9] 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] María Elena APPIAH [facility] CPT-4: 88204 05/10/2015 ([id number]) OFFICE/OUTPATIENT VISIT EST Diagnosis: SINUSITIS, ACUTE[ICD9: 461.9] Diagnosis: ALLERGIC RHINITIS[ICD9: 477.9] Diagnosis: DERMATITIS NOS[ICD9: 692.9] María Elena REHMAN [facility] CPT-4: 83320 03/16/2015 OFFICE/OUTPATIENT VISIT EST Diagnosis: Otitis media[ICD9: 382.9] Diagnosis: SINUSITIS, ACUTE[ICD9: 461.9] June VanSpencer MARÍA ELENA APPIAH [facility] CPT-4: 42798 09/11/2014 ([id number]) OFFICE/OUTPATIENT VISIT EST Diagnosis: HYPERLIPIDEMIA NEC/NOS[ICD9: 272.4] María Elena APPIAH [facility] CPT-4: 54331 08/31/2014 ([id number]) OFFICE/OUTPATIENT VISIT EST Diagnosis: - I - HYPERTENSION[ICD9: 401.9] Diagnosis: HYPERLIPIDEMIA NEC/NOS[ICD9: 272.4] María Elena APPIAH DO [facility] CPT-4: 46316 08/27/2014 ([id number]) OFFICE/OUTPATIENT VISIT EST Diagnosis: ABDOMINAL PAIN[ICD9: 789.00] Diagnosis: DYSPEPSIA[ICD9: 536.8] Diagnosis: Thoracic back pain[ICD9: 724.1] María Elena APPIAH DO [facility] CPT-4: 76069 07/21/2014 ([id number]) OFFICE/OUTPATIENT VISIT EST Diagnosis: ALLERGIC RHINITIS[ICD9: 477.9] María Elena APPIAH DO [facility] CPT-4: 70303 07/15/2014 ([id number]) OFFICE/OUTPATIENT VISIT EST Diagnosis: EDEMA[ICD9: 782.3] Diagnosis: Chronic insomnia[ICD9: 780.52] María Elena APPIAH DO [facility] CPT-4: 90494 05/18/2014 ([id number]) OFFICE/OUTPATIENT VISIT EST Diagnosis: Thyromegaly[ICD9: 240.9] Diagnosis: - I - HYPERTENSION[ICD9: 401.9] Diagnosis: ROUTINE MEDICAL EXAM[ICD9: V70.0] Diagnosis: EDEMA[ICD9: 782.3] María Elena APPIAH DO [facility] CPT-4: 71448 05/14/2014 OFFICE/OUTPATIENT VISIT EST Diagnosis: BRONCHITIS, ACUTE[ICD9: 466.0] Diagnosis: SINUSITIS, ACUTE[ICD9: 461.9] María Elena APPIAH [facility] CPT-4: 54856 04/21/2014 OFFICE/OUTPATIENT VISIT EST Diagnosis: SINUSITIS, ACUTE[ICD9: 461.9] June Flores MARÍA ELENA APPIAH [facility] CPT-4: 80194 03/04/2014 ([id number]) OFFICE/OUTPATIENT VISIT EST Diagnosis: VACCINE FOR TDAP[ICD10: Z23] María Elena APPIAH DO [facility] CPT-4: 53622 02/27/2014 ([id number]) OFFICE/OUTPATIENT VISIT EST Diagnosis: Seborrheic keratoses, inflamed[ICD9: 702.11] Diagnosis: ACTINIC KERATOSIS[ICD9: 702.0] Diagnosis: INSOMNIA NOS[ICD9: 780.52] María Elena [facility] CPT-4: 63150 01/13/2014 OFFICE/OUTPATIENT VISIT EST Diagnosis: EUSTACHIAN TUBE DYSFUNCTION[ICD9: 381.81] Diagnosis: ALLERGIC RHINITIS[ICD9: 477.9] Diagnosis: Serous otitis media[ICD9: 381.4] María Elena [facility] CPT-4: 44695 12/24/2013 ([id number]) OFFICE/OUTPATIENT VISIT EST Diagnosis: SINUSITIS, ACUTE[ICD9: 461.9] Diagnosis: ALLERGIC RHINITIS[ICD9: 477.9] Diagnosis: EUSTACHIAN TUBE DYSFUNCTION[ICD9: 381.81] María Elena [facility] CPT-4: 43907 11/12/2013 ([id number]) OFFICE/OUTPATIENT VISIT EST Diagnosis: ALLERGIC RHINITIS[ICD9: 477.9] Diagnosis: SINUSITIS, ACUTE[ICD9: 461.9] María Elena [facility] CPT-4: 67310 10/21/2013 ([id number]) OFFICE/OUTPATIENT VISIT EST Diagnosis: ASYMPTOMATIC VARICOSE VEINS[ICD9: 454.9] Diagnosis: INSOMNIA NOS[ICD9: 780.52] María Elena Valdes KRISTYN [facility] CPT-4: 39152 09/22/2013 OFFICE/OUTPATIENT VISIT EST Diagnosis: SINUSITIS, ACUTE[ICD9: 461.9] June Sandra MARÍA ELENA [facility] CPT-4: 67631 08/27/2013 ([id number]) OFFICE/OUTPATIENT VISIT EST Diagnosis: CEPHALGIA[ICD9: 784.0] Diagnosis: CEPHALGIA, TENSION[ICD9: 307.81] 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] María Elena [facility] CPT-4: 24186 08/04/2013 ([id number]) OFFICE/OUTPATIENT VISIT EST Diagnosis: Cervicalgia[ICD9: 723.1] Diagnosis: SPASM OF MUSCLE[ICD9: 728.85] Diagnosis: CEPHALGIA, TENSION[ICD9: 307.81] María Elena Td ELLISLINE Fabiola APPIAH DO [facility] CPT-4: 64533 07/23/2013 ([id number]) OFFICE/OUTPATIENT VISIT EST Diagnosis: EUSTACHIAN TUBE DYSFUNCTION[ICD9: 381.81] Diagnosis: ALLERGIC RHINITIS[ICD9: 477.9] María Elena ELLISLINE Lucio APPIAH DO [facility] CPT-4: 23668 06/23/2013 ([id number]) OFFICE/OUTPATIENT VISIT EST Diagnosis: ALLERGIC RHINITIS[ICD9: 477.9] Diagnosis: ACUTE SEROUS OTITIS MEDIA[ICD9: 381.01] Diagnosis: EUSTACHIAN TUBE DYSFUNCTION[ICD9: 381.81] María Elena Td ELLISLINE LucioJj TD [facility] CPT-4: 24363 05/26/2013 ([id number]) OFFICE/OUTPATIENT VISIT EST Diagnosis: HYPERTENSION[ICD9: 401.9] Diagnosis: EDEMA[ICD9: 782.3] Diagnosis: Serous otitis media[ICD9: 381.4] María Elena ELLISLINE Fabiola APPIAH [facility] CPT-4: 13546 04/16/2013 ([id number]) OFFICE/OUTPATIENT VISIT EST Diagnosis: SINUSITIS, ACUTE[ICD9: 461.9] Diagnosis: ALLERGIC RHINITIS[ICD9: 477.9] Diagnosis: EDEMA[ICD9: 782.3] Diagnosis: Thyromegaly[ICD9: 240.9] Diagnosis: MALAISE AND FATIGUE[ICD9: 780.79] María Elena Seamusabbey Lopez LucioJj TD [employer] [facility] CPT-4: 80154 03/05/2013 ([id number]) OFFICE/OUTPATIENT VISIT EST Diagnosis: PAIN, LOWER BACK[ICD9: 724.2] Diagnosis: SPASM OF MUSCLE[ICD9: 728.85] María Elena JUARES LucioJj TD [employer] [facility] CPT-4: 08308 12/23/2012 OFFICE/OUTPATIENT VISIT EST Diagnosis: Low back pain[ICD9: 724.2] Lashawn Hicks KRISTYN MUMTAZ [facility] CPT-4: 88863 12/16/2012 ([id number]) OFFICE/OUTPATIENT VISIT EST Diagnosis: PAIN, LOWER BACK[ICD9: 724.2] Diagnosis: SCIATICA[ICD9: 724.3] Diagnosis: Lumbar herniated disc[ICD9: 722.10] María Elena ELLISJaylin APPIAH DO [facility] CPT-4: 24888 12/09/2012 ([id number]) OFFICE/OUTPATIENT VISIT EST Diagnosis: PAIN, LOWER BACK[ICD9: 724.2] Diagnosis: SCIATICA[ICD9: 724.3] Diagnosis: LUMBAR DISC DISPLACEMENT[ICD9: 722.10] María Elena MARIN Fabiola APPIAH DO [facility] CPT-4: 47994 12/04/2012 OFFICE/OUTPATIENT VISIT EST Diagnosis: Pneumonia[ICD9: 486] Mary Tillman MARÍA ELENA APPIAH DO [facility] CPT-4: 43570 11/22/2012 ([id number]) OFFICE/OUTPATIENT VISIT EST Diagnosis: PNEUMONIA, ORGANISM[ICD9: 486] Diagnosis: Exacerbation of RAD (reactive airway disease)[ICD9: 493.92] María Elena Td APPIAH DO [facility] CPT-4: 76122 11/21/2012 OFFICE/OUTPATIENT VISIT EST Diagnosis: HYPERTENSION[ICD9: 401.9] Diagnosis: Cephalgia[ICD9: 784.0] Lashawn MONTEROQUELINE Fabiola APPIAH DO L CPT-4: 46474 10/29/2012 ([id number]) OFFICE/OUTPATIENT VISIT EST Diagnosis: MALAISE AND FATIGUE[ICD9: 780.79] Diagnosis: ARTHRALGIA-MULTIPLE SITES[ICD9: 719.49] María Elena REED Fabiola APPIAH DO [facility] CPT-4: 23323 10/14/2012 ([id number]) OFFICE/OUTPATIENT VISIT EST Diagnosis: URINARY FREQUENCY[ICD9: 788.41] María Elena MONTEROQUELINE Fabiola APPIAH DO [facility] CPT-4: 54437 09/27/2012 ([id number]) OFFICE/OUTPATIENT VISIT EST Diagnosis: MALAISE AND FATIGUE[ICD9: 780.79] Diagnosis: ARTHRALGIA-MULTIPLE SITES[ICD9: 719.49] María Elena APPIAH [facility] CPT-4: 84479 09/25/2012 ([id number]) OFFICE/OUTPATIENT VISIT EST Diagnosis: SINUSITIS, ACUTE[ICD9: 461.9] Diagnosis: EUSTACHIAN TUBE DYSFUNCTION[ICD9: 381.81] María Elena APPIAH [facility] CPT-4: 99067 08/29/2012 OFFICE/OUTPATIENT VISIT EST Diagnosis: ACTINIC KERATOSIS[ICD9: 702.0] Diagnosis: Inflamed seborrheic keratosis[ICD9: 702.11] Diagnosis: Skin cancer of face[ICD9: 173.31] Diagnosis: HYPERTENSION[ICD9: 401.9] María Elena GODOY [facility] CPT-4: 51414 08/12/2012 ([id number]) OFFICE/OUTPATIENT VISIT EST Diagnosis: ARTHRALGIA-MULTIPLE SITES[ICD9: 719.49] Diagnosis: GOUT[ICD9: 274.9] Diagnosis: HYPERTENSION[ICD9: 401.9] Diagnosis: Tachycardia[ICD9: 785.0] María Elena BRADFORD [facility] CPT-4: 53236 05/06/2012 ([id number]) OFFICE/OUTPATIENT VISIT EST Diagnosis: INSOMNIA NOS[ICD9: 780.52] María Elena [facility] CPT-4: 27241 04/03/2012 ([id number]) OFFICE/OUTPATIENT VISIT EST Diagnosis: INSOMNIA NOS[ICD9: 780.52] Diagnosis: HYPERTENSION[ICD9: 401.9] Diagnosis: MIGRAINE NOS/NOT INTRCBL[ICD9: 346.90] María Elena [facility] CPT-4: 86920 03/19/2012 ([id number]) OFFICE/OUTPATIENT VISIT EST Diagnosis: CELLULITIS[ICD9: 682.9] Diagnosis: Ankle pain[ICD9: 719.47] Diagnosis: HYPERTENSION[ICD9: 401.9] María Elena SEYMOUR [facility] CPT-4: 56473 02/20/2012 ([id number]) OFFICE/OUTPATIENT VISIT EST Diagnosis: MIGRAINE NOS/NOT INTRCBL[ICD9: 346.90] Diagnosis: Vomiting[ICD9: 787.03] María Elena Seamusabbey JUARES LucioJj CIRO Bazzi [facility] CPT-4: 35679 01/30/2012 ([id number]) OFFICE/OUTPATIENT VISIT EST Diagnosis: EDEMA[ICD9: 782.3] Diagnosis: HYPERTENSION[ICD9: 401.9] Diagnosis: ALLERGIC RHINITIS[ICD9: 477.9] Diagnosis: ARTHRALGIA-MULTIPLE SITES[ICD9: 719.49] María Elena MONTERO APARNAALCIDES LucioJj TD [facility] CPT-4: 91261 01/24/2012 ([id number]) OFFICE/OUTPATIENT VISIT EST Diagnosis: SPASM OF MUSCLE[ICD9: 728.85] Diagnosis: Thoracic back pain[ICD9: 724.1] Diagnosis: Cervical pain[ICD9: 723.1] María Elena JUARES LucioJj KRISTYN PANDYA [facility] CPT-4: 60951 01/10/2012 OFFICE/OUTPATIENT VISIT EST Diagnosis: PAIN, LOWER BACK[ICD9: 724.2] Diagnosis: LUMBAR DISC DISPLACEMENT[ICD9: 722.10] María Elena MARIN LucioJj TD [facility] CPT-4: 06855 12/11/2011 OFFICE/OUTPATIENT VISIT EST Diagnosis: MIGRAINE NOS/NOT INTRCBL[ICD9: 346.90] Diagnosis: SINUSITIS, ACUTE[ICD9: 461.9] María Elena Seamusabbey JUARES LucioJj TD [facility] CPT-4: 23694 11/09/2011 OFFICE/OUTPATIENT VISIT EST Diagnosis: MIGRAINE NOS/NOT INTRCBL[ICD9: 346.90] Diagnosis: LYMPHADENOPATHY[ICD9: 785.6] María Elena Seamusabbey JUARES LucioJj TD [facility] CPT-4: 43044 09/13/2011 OFFICE/OUTPATIENT VISIT EST Diagnosis: MALAISE AND FATIGUE[ICD9: 780.79] Diagnosis: ARTHRALGIA-MULTIPLE SITES[ICD9: 719.49] María Elena REED LucioJj TD [facility] CPT-4: 55408 08/31/2011 OFFICE/OUTPATIENT VISIT EST Diagnosis: SINUSITIS, ACUTE[ICD9: 461.9] María Elena ValdesJj ORENDER DO [facility] CPT-4: 06280 07/20/2011 OFFICE/OUTPATIENT VISIT EST Diagnosis: HYPERTENSION[ICD9: 401.9] Diagnosis: PAIN, LOWER BACK[ICD9: 724.2] Diagnosis: SPASM OF MUSCLE[ICD9: 728.85] María Elena GODOYNDER DO [facility] CPT-4: 61299 07/06/2011 OFFICE/OUTPATIENT VISIT EST Diagnosis: MIGRAINE NOS/NOT INTRCBL[ICD9: 346.90] Diagnosis: HYPERTENSION[ICD9: 401.9] María Elena GODOY NDER DO [facility] CPT-4: 64142 05/22/2011 OFFICE/OUTPATIENT VISIT EST Diagnosis: SINUSITIS, ACUTE[ICD9: 461.9] Diagnosis: MIGRAINE NOS/NOT INTRCBL[ICD9: 346.90] Diagnosis: Dehydration[ICD9: 276.51] Diagnosis: Vomiting[ICD9: 787.03] María Elena Seamusmindimaryjane MARÍA ELENA LucioJj MARIVELE R DO [facility] CPT-4: 73547 05/09/2011 ([id number]) OFFICE/OUTPATIENT VISIT EST María Elena Td ISAAC UJARED S. ORENDER DO [facility] CPT-4: 76845 02/14/2011 ([id number]) OFFICE/OUTPATIENT VISIT EST María Elena Td ISAAC UJARED S. ORENDER DO [facility] CPT-4: 88510 02/03/2011 ([id number]) OFFICE/OUTPATIENT VISIT EST María Elena Seaumsmindimaryjane ISAAC UJARED S. ORENDER DO [facility] CPT-4: 06875 01/31/2011 ([id number]) OFFICE/OUTPATIENT VISIT EST María Elena Td ISAAC UELINE S. ORENDER DO [facility] CPT-4: 44948 01/25/2011 ([id number]) OFFICE/OUTPATIENT VISIT EST María Elena Seamusmindimaryjane ISAAC UJARED S. ORENDER DO [facility] CPT-4: 05580 01/18/2011 ([id number]) OFFICE/OUTPATIENT VISIT EST María Elena Seamusmindimaryjane ISAAC UJARED S. ORENDER DO [facility] CPT-4: 30801 11/29/2010 ([id number]) OFFICE/OUTPATIENT VISIT, EST María Elena MONTERO APARNAALCIDES S. ORENDER DO [facility] CPT-4: 26708 10/10/2010 ([id number]) OFFICE/OUTPATIENT VISIT, EST María Elena GODOYNDER DO [facility] CPT-4: 35983 06/07/2010 ([id number]) OFFICE/OUTPATIENT VISIT, EST María Elena GODOYNDER [employer] CPT-4: 00917 04/27/2010 ([id number]) OFFICE/OUTPATIENT VISIT, EST María Elena GODOYNDER DO [employer] CPT-4: 38912 04/05/2010 ([id number]) OFFICE/OUTPATIENT VISIT, EST María Elena GODOYNDER DO [facility] CPT-4: 35253 03/09/2010 ([id number]) OFFICE/OUTPATIENT VISIT, EST María Elena GODOYNDER [employer] CPT-4: 78033 03/03/2010 ([id number]) OFFICE/OUTPATIENT VISIT, EST María Elena ORTAER [employer] CPT-4: 21856 01/17/2010 ([id number]) PREV VISIT, EST, AGE 40-64 María Elena APPIAH DO [employer] CPT-4: 58242 12/27/2009 Plan of Care Planned Activity Notes [...] ICD-10 : E11.65 10/07/2019 Appointment: Kathleen Zuniga [address] [place], [place] [id number] OFFICE SURGERY 10/07/2019 Visit Diagnosis [...] E11.65 09/30/2019 Appointment: María Elena Appiah WPtel: [address] [place], [place] [phone] [place] CHECK UP 09/30/2019 Patient Education: Premarin- [employer] Coupon [id number] https://www.CloudSway.com/samplemd/resources/getResource/61/30426m63-j831-0qqr-o7 Completed 09/30/2019 Appointment: María Elena Appiah WPtel: [address] [place], [place] [phone] [place] LAB 09/29/2019 Appointment: María Elena Appiah WPtel: [address] [place], [place] [phone] [place] Won't have the new insurance till [...] W06.XXXS 05/28/2019 Appointment: María Elena Appiah WPtel: [address] [place], [place] [phone] [place] FOLLOW UP 05/28/2019 Appointment: María Elena Appiah WPtel: [address] [place], [place] [address] [place] BP CHECK 05/19/2019 Visit Diagnosis Plan: [...] Z79.890 01/22/2019 Appointment: María Elena Appiah WPtel: [address] [place], [place] [id number] [place] FOLLOW UP 01/22/2019 Patient Education: estradiol- [employer] Coupon [id number] https://www.tokia.lt/samplemd/resources/getResource/61/235l764y-3kk7-7k77-7f Completed 01/22/2019 Appointment: María Elena Appiahtel: [address] [place], [place] [phone] [place] CANCELED 01/20/2019 Appointment: María Elena Appiah WPtel: [address] [place] [address] [place] LM NO SHOW 01/06/2019 Appointment: María Elena Appiah WPtel: [address] [place] [address] [place] CANCELED 10/17/2018 Appointment: María Elena Appiah WPtel: [address] [place] [address] [place] BP CHECK 10/09/2018 Visit Diagnosis Plan: [...] 09/30/2018 Appointment: María Elena Appiah WPtel: [address] [place] [address] [place] FOLLOW UP 09/30/2018 Visit Diagnosis Plan: [...] : F51.01 08/27/2018 Appointment: María Elena Appiahtel: [address] [place] [address] ACUTE ILLNESS 08/27/2018 Appointment: María Elena Appiah WPtel: [address] [place] [address] [place] Patient stated she went out to [...] prn. Tyle... 08/09/2018 Appointment: María Elena Appiahtel: [address] [place] [address] ACUTE ILLNESS 08/09/2018 Appointment: María Elena Appiahtel: [address] [place] [address] NO SHOW 08/08/2018 Visit Diagnosis Plan: Anxiety [...] : B35.4 07/22/2018 Appointment: María Elena Appiahtel: [address] [place] [address] ACUTE ILLNESS 07/22/2018 Appointment: María Elena Appiah WPtel: [address] [place] [address] [place] INJECTION 06/19/2018 Patient Education: Patient Medication [...] : L03.031 06/17/2018 Appointment: Kathleen Zuniga [address] [place] [address] ACUTE ILLNESS 06/17/2018 Patient Education: Patient Medication [...] ICD-10 : B02.9 05/16/2018 Appointment: Kathleen Zuniga [address] [place] [address] ACUTE ILLNESS 05/16/2018 Patient Education: Patient Medication [...] ICD-10 : L03.115 03/20/2018 Appointment: Kathleen Zuniga [address] [place], [place] [address] FOLLOW UP 03/20/2018 Patient Education: Patient Medication [...] : L03.115 03/18/2018 Appointment: Kathleen Zuniga [address] [phone] FOLLOW UP 03/18/2018 Patient Education: Patient Medication [...] : L03.115 03/15/2018 Appointment: Kathleen Zuniga [address] [facility] ACUTE ILLNESS 03/15/2018 Patient Education: Patient Medication [...] : J01.90 02/11/2018 Appointment: Kathleen Zuniga [address] [facility] ACUTE ILLNESS 02/11/2018 Patient Education: Patient Medication Summary Completed 02/11/2018 Appointment: María Elena Appiah WPtel: [phone] [facility] [place] INJECTION 02/01/2018 Patient Education: Patient Medication [...] ICD-10 : M51.16 01/30/2018 Appointment: Kathleen Zuniga [address] [place], [place] [id number] ACUTE ILLNESS 01/30/2018 Patient Education: Patient Medication [...] 12/18/2017 Appointment: María Elena Appiah WPtel: [phone] Annual Well Visit 12/18/2017 Patient Education: Patient Medication Summary Completed 12/18/2017 Care Plan: Referral Order SNOMED-CT : [id number] Pending 12/18/2017 Appointment: María Elena Appiah WPtel: [facility] [address] [place] INJECTION 12/10/2017 Patient Education: Patient Medication [...] : L03.031 12/07/2017 Appointment: Kathleen Zuniga [address] [place] [address] ACUTE ILLNESS 12/07/2017 Patient Education: Patient Medication [...] ICD-10 : J01.00 10/08/2017 Appointment: Kathleen Zuniga [address] [place] [address] ACUTE ILLNESS 10/08/2017 Patient Education: Patient Medication Summary Completed 10/08/2017 Appointment: María Elena Appiah WPtel: [phone] [address] [place] INJECTION 09/21/2017 Patient Education: Patient Medication [...] ICD-10 : R06.83 09/20/2017 Appointment: Kathleen Zuniga [address] [place], [place] [id number] ACUTE ILLNESS 09/20/2017 Patient Education: Patient Medication [...] ICD-10 : L60.0 08/29/2017 Appointment: Kathleen Zuniga [address] [place], [place] [phone] OFFICE SURGERY 08/29/2017 Patient Education: Patient Medication Summary Completed 08/29/2017 Visit Diagnosis Plan: Actinic keratosis Discussion: Cr yotherapy as above ICD-9 : 702.0 ICD-10 : L57.0 08/01/2017 Appointment: María Elena Appiah WPtel: [address] [place], [place] [phone] OFFICE SURGERY 08/01/2017 Patient Education: Patient Medication Summary Completed 08/01/2017 Appointment: María Elena Appiah WPtel: [address] [place], [place] [phone] PATIENT THOUGHT APPOINTMENT WAS TOMORROW 07/26/17 CALLED 15 MINUTES BEFORE APPT TO SAY SHE DIDN'T HAVE ANYONE TO COVER HER BUSINESS AND WOULD NOT MAKE IT NO SHOW 07/25/2017 Visit Diagnosis Plan: Cellulitis of left toe Discussio n: Clindamycin and notify if worsening or persistis ICD-9 : 681.10 ICD-10 : L03.032 07/19/2017 Appointment: María Elena Appiah WPtel: [address] [place], [place] [phone] MEDICATION REVIEW 07/19/2017 Patient Education: Patient Medication Summary Completed 07/19/2017 Appointment: María Elena Appiah WPtel: [address] [place], [place] [phone] [place] CANCELED 07/04/2017 Visit Diagnosis Plan: Generalized hyperhidrosis Discus ian: CBC, CMP, TSH, free T4 ordered to assess. will review labs. ICD-9 : 780.8 ICD-10 : R61 06/27/2017 Visit Diagnosis Plan: Chronic sinusitis, unspecified D iscussion: Referral sent to dr. albarado in [place] per patient request. patient has been treated multiple times for sinus infections with no recovery. patient was seen by dr sanchez in the past with no interventions. patient has deviated septum which may be affecting her sinuses. 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, including hip Discussion: Shave removal of above lesio n--sent to pathology ICD-9 : 216.7 ICD-10 : D23.72 01/24/2017 Appointment: María Elena Appiah WPtel: [address] [place], [place] [phone] 01/23 confirmed ~sl OFFICE SURGERY 01/24/2017 Patient Education: Patient Medication Summary Completed 01/24/2017 Appointment: Loan Sánchez [address] [place], [place] [id number] 01/09 rescheduled~sl RESCHEDULED 01/15/2017 Visit Diagnosis Plan: Localized edema Discussion: Reich ge metolazone to lasix with potassium prn ICD-9 : 782.3 ICD-10 : R60.0 12/13/2016 Visit Diagnosis Plan: Primary insomnia Discussion: Dis cussed Lorenaa but at this time patient wants to hold on trying any new meds and would like to try to decrease meds ICD-9 : 780.52 ICD-10 : F51.01 12/13/2016 Visit Diagnosis Plan: Other melanin hyperpigmentation Discussion: Monitor/Observe Sunscreen ICD-9 : 709.09 ICD-10 : L81.4 12/13/2016 Appointment: María [facility] [phone] [id number] [place] 12/12 confirmed ~ MEDICATION REVIEW 12/13/2016 Patient Education: Patient Medication Summary Completed 12/13/2016 Appointment: María Elena Appiah [facility] [phone] [id number] [place] rescheduled for 12/13/16 at 11am RESCHEDULED 0 12/06/2016 Appointment: María Elena Appaih WPtel: [phone] [id number] [place] CANCELED 11/23/2016 Patient Education: Patient [...] 11/01/2016 Appointment: María Elena Appiah [facility] [phone] [id number] [place] 10/31 lm `sl 11/01 lm`sl MEDICATION REVIEW 017 Patient Education: Patient Medication Summary Completed 11/01/2016 Referral: Canelo Overton WPtel: [phone] [id number] [place] Referral Initiated 10/30/2016 Visit Diagnosis Plan: [...] Z01.419 10/17/2016 Appointment: María Elena Appiah WPtel: [address] [place] [address] 10/16 confirmed ~sl PAP 10/17/2016 Patient Education: Patient Medication Summary Completed 10/17/2016 Care Plan: MAMMOGRAM SCREENING [facility] : 2 [phone] Pending 10/17/2016 Visit Diagnosis Plan: Other seasonal allergic rhinitis Discussion: Decadron/Garamycin Nasal [place] Mix Too soon for steroid Retry zyrtec 10mg daily ICD-9 : 477.9 ICD-10 : J30.2 10/10/2016 Appointment: María Elena Appiah WPtel: [address] [place], [place] [phone] [place] FOLLOW UP 10/10/2016 Patient Education: Patient Medication Summary Completed 10/10/2016 Appointment: María Elena Appiah WPtel: [address] [place], [place] [phone] 10/02 reschedule `sl RESCHEDULED 10/02/2016 Visit Plan: See surgery for removal of n ew left arm lesion and right foot lesion Lyrica to use next month for left arm paresthesias Continue current meds Discussed sunscreen/sunblock combo 09/19/2016 Appointment: María Elena Appiah WPtel: [address] [place], [place] [phone] 09/18 confirmed ~sl FOLLOW UP 09/19/2016 Patient Education: Patient Medication Summary Completed 09/19/2016 Patient Education: Patient Medication Summary Completed 09/18/2016 Care Plan: MAMMOGRAM BOTH BREASTS LOINC : 89985-7 Pending 09/18/2016 Visit Plan: Discussed that needs [...] sinuses 08/24/2016 Appointment: María Elena Appiah WPtel: [address] [place] [address] ACUTE ILLNESS 08/24/2016 Patient Education: Patient Medication Summary Completed 08/24/2016 Patient Education: Patient Medication Summary Completed 08/23/2016 Care Plan: MAMMOGRAM SCREENING LOINC : 2 6347-5 Pending 08/23/2016 Visit Plan: Finish doxycycline Add Breo 100/25 1 p BID for 2 weeks If not improving within next 2 days will get CXR 08/16/2016 Appointment: María Elena Appiah WPtel: [address] [place] [address] ACUTE ILLNESS 08/16/2016 Patient Education: Patient Medication Summary Completed 08/16/2016 Visit Plan: Supportive care. Rest, Fluid s, Tylenol/Motrin prn fever or bodyaches. Notify if worsening symptoms. Doxycyline and Prednisone 08/10/2016 Appointment: María Elena Appiah WPtel: [address] [place] [address] 08/09 lm`sl....confirmed-sp FOLLOW UP 09/2015 Patient Education: Patient Medication Summary Completed 08/10/2016 Visit Plan: Saline nasal flushes prn. Ty lenol/Motrin prn headache. Notify if persists/symptoms worsening. Dexamethasone 8mg IM today May use coricedan and mucinex 08/02/2016 Appointment: María Elena Appiah WPtel: [address] [place], [place] [phone] ACUTE ILLNESS 08/02/2016 Patient Education: Patient Medication Summary Completed 08/02/2016 Visit Plan: Cryotherapy as above and lef t forearm lesion removal as above with 5-0 punch biopsy and sent to path Return in 10 days for suture removal 08/01/2016 Appointment: María Elena Appiah WPtel: [address] [place] [address] 07/31 confirmed`~ OFFICE SURGERY 08/01/2016 Patient Education: Patient Medication Summary Completed 08/01/2016 Visit Plan: Stop clindamycin Check CBC, CMP, ESR now/STAT 07/27/2016 Appointment: María Elena Appiah WPtel: [address] [place] [address] ACUTE ILLNESS 07/27/2016 Patient Education: Patient Medication Summary Completed 07/27/2016 Visit Plan: Update lab and check ABIs to start with Will likely need cardiology evaluation to rule out PVD Clindamycin for 10 days Daily yogurt or probiotic Will return for removal of left arm lesions 07/20/2016 Appointment: María Elena Appiah WPtel: [address] [place] [address] ACUTE ILLNESS 07/20/2016 Patient Education: Patient Medication Summary Completed 07/20/2016 Patient Education: Patient Medication Summary Completed 07/20/2016 Care Plan: MAMMOGRAM BOTH BREASTS LOINC : 96586-3 Pending 07/20/2016 Care Plan: US EXAM CHEST LOINC : 41075-2 Pending 07/20/2016 Visit Plan: Wound culture collected from left great toe Appearance is somewhat staph like Rx as above Wound cleanser and skin care reviewed May need to add oral antibiotic if sores do not heal or continue to reoccur 07/06/2016 Appointment: Loan Sánchez [address] [place] [address] ACUTE ILLNESS 07/06/2016 Patient Education: Patient Medication Summary Completed 07/06/2016 Appointment: María Elena Appiah WPtel: [address] [place] [address] [place] INJECTION 05/25/2016 Patient Education: Patient Medication Summary Completed 05/25/2016 Visit Plan: Saline nasal flushes prn. Ty lenol/Motrin prn headache. Notify if persists/symptoms worsening. Dexamethasone and Rocephin given 04/26/2016 Appointment: María Elena Appiah WPtel: [address] [place] [address] ACUTE ILLNESS 04/26/2016 Patient Education: Patient Medication Summary Completed 04/26/2016 Visit Plan: Check CBC, CMP, TSH, FreeT4, HbA1C, estradiol, lipids in AM 03/02/2016 Appointment: María Elena Appiah WPtel: [address] [place] [address] 03/01 lm~sl ACUTE ILLNESS 03/02/2016 Patient Education: Patient Medication Summary Completed 03/02/2016 Visit Plan: Exam is nearly normal Needs to be taking daily antihistamine Would prefer to use oral steroids instead of shot but patient insist that oral steroids cause horrible headaches for her Will given kenalog IM instead 02/09/2016 Appointment: Loan Sánchez [address] [place] [address] ACUTE ILLNESS 02/09/2016 Patient Education: Patient Medication Summary Completed 02/09/2016 Visit Plan: Culture urine Macrobid DC xa nax Trial of Ativan 1mg q HS 01/24/2016 Appointment: María Elena Appiah WPtel: [address] [place] [address] ACUTE ILLNESS 01/24/2016 Patient Education: Patient Medication Summary Completed 01/24/2016 Visit Plan: No steroid or rocephin injec tion warranted Can have oral prednisone Continue current home regimen Needs to follow up with Dr Sanchez if problems persist 12/23/2015 Appointment: Loan Sánchez [address] [place] [address] ACUTE ILLNESS 12/23/2015 Patient Education: Patient Medication Summary Completed 12/23/2015 Visit Plan: Saline nasal flushes prn. Ty lenol/Motrin prn headache. Notify if persists/symptoms worsening. Kenalog 40mg IM today 12/08/2015 Appointment: María Elena Appiah WPtel: [address] [place], [place] [phone] 12/06 confirmed~sl ACUTE ILLNESS 12/08/2015 Patient Education: Patient Medication Summary Completed 12/08/2015 Appointment: María Elena Appiah WPtel: [address] [place], [place] [phone] ACUTE ILLNESS 11/18/2015 Patient Education: Patient Medication Summary Completed 10/11/2015 Appointment: María Elena Appiah WPtel: [address] [place], [place] [phone] [place] INJECTION 10/07/2015 Patient Education: Patient Medication Summary Completed 10/07/2015 Visit Plan: Check renal arterial doppler s and ECHO Change amlodopine to lotrel 5/20mg q HS Will need stress test as well Check CMP, uric acid, ESR 10/06/2015 Appointment: María Elena Appiah WPtel: [address] [place], [place] [phone] ACUTE ILLNESS 10/06/2015 Patient Education: Patient Medication Summary Completed 10/06/2015 Patient Education: [facility][NOTE 3] - Saving AutoInj - Amlodipine Besylate - 18-64 - Dynamic Portal ID Completed 10/06/2015 Appointment: María Elena Appiah WPtel: [address] [place], [place] [phone] FOLLOW UP 09/22/2015 Visit Plan: Cephalexin 500 mg PO bid Mery ly topical Mupirocin to lesions on left lateral neck and face Follow-up in one week. Sooner if symptoms worsen 09/14/2015 Appointment: June Flores WPtel: [address] [place], [place] [phone] ACUTE ILLNESS 09/14/2015 Patient Education: Patient Medication Summary Completed 09/14/2015 Visit Plan: Change bystolic to bedtime d osing and amlodopine to morning dosing Cryotherapy as above to AKs 09/07/2015 Appointment: María Elena Appiah WPtel: [address] [place], [place] [phone] 09/06 appointment made and confirmed ~sl FOLLOW UP 09/07/2015 Patient Education: Patient Medication Summary Completed 09/07/2015 Visit Plan: Increase bystolic back to 20 mg daily but will split and take 10mg in AM and 10mg in PM Stress Reducers 08/18/2015 Appointment: María Elena Appiah WPtel: [address] [place], [place] [phone] 08/17/15 appt confirmed cn ACUTE ILLNESS 08/18 Patient Education: Patient Medication Summary Completed 08/18/2015 Appointment: María Elena Appiah WPtel: [address] [place], [place] [phone] BP CHECK 07/07/2015 Patient Education: Patient Medication Summary Completed 07/07/2015 Appointment: María Elena Appiah WPtel: [address] [place] [address] BP CHECK 06/24/2015 Patient Education: Patient Medication Summary Completed 06/24/2015 Appointment: María Elena Appiah WPtel: [address] [place] [address] BP CHECK 06/21/2015 Patient Education: Patient Medication Summary Completed 06/21/2015 Visit Plan: Lab discussed Continue pipere nt meds and lifestyle modification Recheck lab in 6mos 06/16/2015 Appointment: María Elena Appiah WPtel: [address] [place] [address] 06/15 confirmed FOLLOW UP 06/16/2015 Patient Education: Patient Medication Summary Completed 06/16/2015 Patient Education: Patient Medication Summary Completed 06/15/2015 Visit Plan: Increase cymbalta to 60mg q HS Keep clonidine at current dose Recheck 2weeks Change xanax to klonopin 06/02/2015 Appointment: María Elena Appiah WPtel: [address] [place], [place] [phone] 06/02 lm FOLLOW UP 06/02/2015 Patient Education: Patient Medication Summary Completed 06/02/2015 Appointment: María Elena Appiah WPtel: [address] [place] [address] ACUTE ILLNESS 05/24/2015 Visit Plan: Increase clonidine to 0.2mg q HS Add cymbalta 30mg q HS Recheck 2weeks Stress Reducers Check fasting lab Discussed sleep study 05/20/2015 Appointment: María Elena Appiah WPtel: [address] [place] [address] ACUTE ILLNESS 05/20/2015 Patient Education: Patient Medication Summary Completed 05/20/2015 Patient Education: [facility][NOTE 3] - Saving AutoInj - Cymbalta - 18-64 - Dynamic Portal ID Completed 05/20/2015 Appointment: María Elena Appiah WPtel: [address] [place] [address] BP CHECK 05/19/2015 Patient Education: Patient Medication Summary Completed 05/19/2015 Visit Plan: Topical Bactroban alternatin g with topical betamethasone Recheck 2weeks 05/10/2015 Appointment: María Elena Appiah WPtel: [address] [place] [address] 05/07 cn...05/07 appt confirmed OFFICE SURGER Y 05/10/2015 Patient Education: Patient Medication Summary Completed 05/10/2015 Referral: Patrick Chandler WPtel: [address] Referral Initiated 05/04/2015 Visit Plan: Saline nasal flushes prn. Ty lenol/Motrin prn headache. Notify if persists/symptoms worsening. Depomedrol 40mg IM today 03/16/2015 Appointment: María Elena Appiah WPtel: [address] [place] [address] ACUTE ILLNESS 03/16/2015 Patient Education: Patient Medication Summary Completed 03/16/2015 Appointment: María Elena Appiah WPtel: [address] [place] [address] ER Follow UP 03/09/2015 Visit Plan: Cryotherapy to lesions as ab ove 10/27/2014 Appointment: María Elena Appiah WPtel: [address] [place] [address] OFFICE SURGERY 10/27/2014 Patient Education: Patient Medication Summary Completed 10/27/2014 Appointment: June Flores WPtel: [address] [place] [address] ACUTE ILLNESS 09/11/2014 Patient Education: Patient Medication Summary Completed 09/11/2014 Visit Plan: Lab discussed Lipitor 10mg d aily Coenzyme Q-10 400mg daily Vitamin D3 5000u daily Recheck lipids with LFTs in 3mos then fwup 08/31/2014 Appointment: María Elena Appiah WPtel: [address] [place] [address] 08/28 voicemail FOLLOW UP 08/31/2014 Patient Education: Patient Medication Summary Completed 08/31/2014 Appointment: María Elena Appiah WPtel: [address] [place] [address] [place] LAB 08/27/2014 Appointment: María Elena Appiah WPtel: [address] [place], [place] [phone] [place] LAB 08/27/2014 Patient Education: Patient Medication Summary Completed 08/27/2014 Appointment: María Elena Appiah WPtel: [address] [place] [address] ACUTE ILLNESS 07/23/2014 Appointment: María Elena Appiah WPtel: [address] [place] [address] ACUTE ILLNESS 07/21/2014 Patient Education: Patient Medication Summary Completed 07/21/2014 Visit Plan: Kenalog 40mg IM today Contin ue narendra and singulair Add Flonase 07/15/2014 Appointment: María Elena Appiah WPtel: [address] [place], [place] [address] ACUTE ILLNESS 07/15/2014 Appointment: María Elena Appiah WPtel: [address] [place] [phone] ACUTE ILLNESS 07/15/2014 Patient Education: Patient Medication Summary Completed 07/15/2014 Visit Plan: Will do metolazone 2.5mg prn with 6 potassium and see if causes as severe cramping Trial of of seroquel XR 50mg q PM with evening meal and let us know how works 05/18/2014 Appointment: María Elena Appiah WPtel: [address] [place], [place] [phone] 05/15 left message FOLLOW UP 05/18/2014 Patient Education: Patient Medication Summary Completed 05/18/2014 Appointment: María Elena Appiah WPtel: [address] [place], [place] [phone] LAB 05/14/2014 Patient Education: Patient Medication Summary Completed 05/14/2014 Appointment: María Elena Appiah WPtel: [address] [place], [place] [phone] [place] INJECTION 04/22/2014 Visit Plan: Nimco today a nd finish abx given from urgent care 04/21/2014 Appointment: María Elena Appiah WPtel: [address] [place], [place] [phone] [place] INJECTION 04/21/2014 Patient Education: Patient Medication Summary Completed 04/21/2014 Appointment: June Flores WPtel: [address] [place], [place] [phone] ACUTE ILLNESS 03/04/2014 Patient Education: Patient Medication Summary Completed 03/04/2014 Appointment: María Elena Appiah WPtel: [address] [place], [place] [phone] [place] INJECTION 02/27/2014 Patient Education: Patient Medication Summary Completed 02/27/2014 Visit Plan: Cryotherapy as above to all lesions Patient wants to try no meds for insomnia for a while and see how goes 01/13/2014 Appointment: María Elena Appiah WPtel: [address] [place] [address] OFFICE SURGERY 01/13/2014 Patient Education: Patient Medication Summary Completed 01/13/2014 Visit Plan: Stop Melatonin Stop Soma Tri al of trazadone 75mg q HS See ENT for possible tubes as has had chronic ETD and serous otitis media with numerous steroids 12/24/2013 Appointment: María Elena Appiah WPtel: [address] [place] [address] ACUTE ILLNESS 12/24/2013 Patient Education: Patient Medication Summary Completed 12/24/2013 Visit Plan: Saline nasal flushes prn. Ty lenol/Motrin prn headache. Notify if persists/symptoms worsening. 11/12/2013 Appointment: María Elena Appiah WPtel: [address] [place] [address] ACUTE ILLNESS 11/12/2013 Patient Education: Patient Medication Summary Completed 11/12/2013 Appointment: María Elena Appiah WPtel: [address] [place] [address] ACUTE ILLNESS 10/21/2013 Patient Education: Patient Medication Summary Completed 10/21/2013 Visit Plan: Sleep hygiene and sleep rout ine Melatonin 10mg q HS Support stockings and observe 09/22/2013 Appointment: María Elena Appiah WPtel: [address] [place] [address] ACUTE ILLNESS 09/22/2013 Patient Education: Patient Medication Summary Completed 09/22/2013 Appointment: June Flores WPtel: [address] [place] [address] ACUTE ILLNESS 08/27/2013 Patient Education: Patient Medication Summary Completed 08/27/2013 Visit Plan: Proceed with CT scan of head /neck Proceed with occipital nerve injections Butrans 20mcg patch weekly until can get into see Dr. Mcdonough for injections 08/04/2013 Appointment: María Elena Appiahtejaylin: [address] [place] [address] FOLLOW UP 08/04/2013 Patient Education: Patient Medication Summary Completed 08/04/2013 Visit Plan: OMT done Daily neck stretche s, moist heat Increase Celebrex to 200mg BID Add flexeril 07/23/2013 Appointment: María Elena Appiah WPtel: [address] [place] [address] 07/22 voicemail FOLLOW UP 07/23/2013 Patient Education: Patient Medication Summary Completed 07/23/2013 Appointment: María Elena Appiah WPtel: [address] [place] [address] ACUTE ILLNESS 06/23/2013 Patient Education: Patient Medication Summary Completed 06/23/2013 Appointment: María Elena Appiah WPtel: [address] [place] [address] ACUTE ILLNESS 05/26/2013 Patient Education: Patient Medication Summary Completed 05/26/2013 Visit Plan: Decrease clonidine to 0.1mg TID If BP remains stable consider decreasing amlodopine Prednisone for 5 days BP check in 1mo 04/16/2013 Appointment: María Elena Appiah WPtel: [address] [place] [address] 04/14 pt called and confirmed appt FOLLOW UP 04/16/2013 Patient Education: Patient Medication Summary Completed 04/16/2013 Appointment: María Elena Appiah WPtel: [address] [place] [address] ACUTE ILLNESS 03/05/2013 Patient Education: Patient Medication Summary Completed 03/05/2013 Visit Plan: Pt has MARIA ELENA on with Dr. Sharonda Matthews patch Refill Hydrocodone early tomorrow 12/23/2012 Appointment: María Elena Appiah WPtel: [address] [place] [address] FOLLOW UP 12/23/2012 Patient Education: Patient Medication Summary Completed 12/23/2012 Appointment: Lashawn Eckert WPtel: [address] [place] [address] ACUTE ILLNESS 12/16/2012 Patient Education: Patient Medication Summary Completed 12/16/2012 Visit Plan: Proceed with updated MRI of LS spine Continue gabapentin and add soma and diclofenac Will likely need to go for another epidural 12/09/2012 Appointment: María Elena Appiah WPtel: [address] [place] [address] ACUTE ILLNESS 12/09/2012 Patient Education: Patient Medication Summary Completed 12/09/2012 Visit Plan: Injection as above Finish me drol dose pack Chiropracter this afternoon 12/04/2012 Appointment: María Elena Appiah WPtel: [address] [place] [address] ACUTE ILLNESS 12/04/2012 Patient Education: Patient Medication Summary Completed 12/04/2012 Appointment: Mary Tillman WPtel: [address] [place] [address] FOLLOW UP 11/22/2012 Patient Education: Patient Medication Summary Completed 11/22/2012 Appointment: María Elena Appiah WPtel: [address] [place] [address] ACUTE ILLNESS 11/21/2012 Patient Education: Patient Medication Summary Completed 11/21/2012 Appointment: María Elena Appiah WPtel: [address] [place] [address] BP CHECK 11/07/2012 Patient Education: Patient Medication Summary Completed 11/07/2012 Visit Plan: reports extra clonidine and extra amlodipine and extra alprazalam. extra Ketolorac and promethazine last night. Bystolic 10 mg QAM and will continue all other blood pressure meds. Pt. encouraged to rest and hydrate. Discussed stroke and AL symptoms. Pt. instructed to seek ER eval if symptoms worsen or headache persists. Pt. agrees to ER eval/EMS transport if symptoms worsen. BP re-check. 10/29/2012 Appointment: Lashawn Eckert WPtel: [address] [place], [place] [phone] ACUTE ILLNESS 10/29/2012 Patient Education: Patient Medication Summary Completed 10/29/2012 Appointment: María Elena Appiah WPtel: [address] [place] [phone] ACUTE ILLNESS 10/14/2012 Patient Education: Patient Medication Summary Completed 10/14/2012 Appointment: María Elena Appiah WPtel: [address] [place], [place] [phone] UA 09/27/2012 Patient Education: Patient Medication Summary Completed 09/27/2012 Appointment: María Elena Appiah WPtel: [address] [place], [place] [phone] ACUTE ILLNESS 09/25/2012 Patient Education: Patient Medication Summary Completed 09/25/2012 Appointment: María Elena Appiah WPtel: [address] [place] [address] BP CHECK 09/24/2012 Appointment: María Elena Appiah WPtel: [address] [place] [address] ACUTE ILLNESS 08/29/2012 Patient Education: Patient Medication Summary Completed 08/29/2012 Visit Plan: Cryotherapy as above See Karlos m for right ear lesion--probable MOHs procedure Increase amlodopine to 10mg daily 08/12/2012 Appointment: María Elena Appiah WPtel: [address] [place], [place] [phone] OFFICE SURGERY 08/12/2012 Patient Education: Patient Medication Summary Completed 08/12/2012 Appointment: María Elena Appiah WPtel: [address] [place], [place] [phone] 05/03 vm on pt phone...pt called on 04/11 3 pt called wanting in had no one cancel so could not get her in for an appt sooner than 05/06. ACUTE ILLNESS 05/06/2012 Patient Education: Patient Medication Summary Completed 05/06/2012 Visit Plan: Pt wants to hold on any furt her sleep medications 04/03/2012 Appointment: María Elena Appiahtel: [address] [place] [address] FOLLOW UP 04/03/2012 Patient Education: Patient Medication Summary Completed 04/03/2012 Appointment: María Elena Appiahtel: [address] [place] [address] FOLLOW UP 03/19/2012 Patient Education: Patient Medication Summary Completed 03/19/2012 Appointment: María Elena Appiahtel: [address] [place] [address] BP CHECK 02/22/2012 Patient Education: Patient Medication Summary Completed 02/22/2012 Appointment: María Elena Appiahtel: [address] [place] [address] BP CHECK 02/21/2012 Patient Education: Patient Medication Summary Completed 02/21/2012 Visit Plan: Doxycycline and bactroban fo r foot Supportive care on ankles and knees Add norvasc for BP 02/20/2012 Appointment: María Elena Appiahtel: [address] [place] [address] ER Follow UP 02/20/2012 Patient Education: Patient Medication Summary Completed 02/20/2012 Appointment: María Elena Appiahtel: [address] [place] [address] ACUTE ILLNESS 01/30/2012 Patient Education: Patient Medication Summary Completed 01/30/2012 Appointment: María Elena Appiahtel: [address] [place] [address] ACUTE ILLNESS 01/24/2012 Patient Education: Patient Medication Summary Completed 01/24/2012 Visit Plan: Daily back stretches, moist heat, Biofreeze prn OMT done 01/10/2012 Appointment: María Elena Appiah WPtel: [address] [place] [address] ACUTE ILLNESS 01/10/2012 Patient Education: Patient Medication Summary Completed 01/10/2012 Appointment: María Elena Appiahtel: [address] [place] [address] FOLLOW UP 12/11/2011 Patient Education: Patient Medication Summary Completed 12/11/2011 Appointment: María Elena Appiah WPtel: [address] [place] [address] ACUTE ILLNESS 11/09/2011 Patient Education: Patient Medication Summary Completed 11/09/2011 Appointment: María Elena Appiahtel: [address] [place] [address] ACUTE ILLNESS 09/13/2011 Patient Education: Patient Medication Summary Completed 09/13/2011 Visit Plan: Check CBC, TSH, Free T4, CMP , ESR, Vit D, B12 now Start Prednisone today 08/31/2011 Appointment: María Elena Appiah WPtel: [address] [place] [address] ACUTE ILLNESS 08/31/2011 Patient Education: Patient Medication Summary Completed 08/31/2011 Appointment: María Elena Appiahtel: [address] [place] [address] US INJECTION 07/20/2011 Patient Education: Patient Medication Summary Completed 07/20/2011 Visit Plan: Continue current meds Monite r BP Cont stretches from PT 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 07/06/2011 Appointment: María Elena Appiahtel: [address] [place] [address] FOLLOW UP 07/06/2011 Patient Education: Patient Medication Summary Completed 07/06/2011 Appointment: María Elena Appiahtel: [address] [place] [address] US BP CHECK 06/06/2011 Patient Education: Patient Medication Summary Completed 06/06/2011 Visit Plan: Add Bystolic at 2.5mg QAM Ad d Robaxin 750mg 2 po q HS BP check in 2wks 05/22/2011 Appointment: MaríaE lena Appiah WPtel: [address] [place], [place] [phone] FOLLOW UP 05/22/2011 Patient Education: Patient Medication Summary Completed 05/22/2011 Appointment: María Elena Appiah WPtel: [address] [place] [address] ER Follow UP 05/09/2011 Patient Education: Patient Medication Summary Completed 05/09/2011 Appointment: María Elena Appiah WPtel: [address] [place] [address] FOLLOW UP 02/22/2011 Visit Plan: Rx written for Hydrocodone 1 0/325mg #240 See Ortho 02/14/2011 Appointment: María Elena Appiah WPtel: [address] [place] [address] OMT 02/14/2011 Patient Education: Patient Medication Summary [...] lab work. 02/03/2011 Appointment: Lashawn Eckert WPtel: [address] [place], [place] [phone] ACUTE ILLNESS 02/03/2011 Patient Education: Patient Medication Summary Completed 02/03/2011 Visit Plan: OMT done Cont daily stretche s 01/31/2011 Appointment: María Elena Appiah WPtel: [address] [place] [address] ACUTE ILLNESS 01/31/2011 Patient Education: Patient Medication Summary Completed 01/31/2011 Visit Plan: Continue pain meds OMT done Proceed with PT No work this summer01/25/2011 Appointment: María Elena Appiah WPtel: [address] [place] [address] ACUTE ILLNESS 01/25/2011 Patient Education: Patient Medication Summary Completed 01/25/2011 Visit Plan: Start PT Long discussion abo ut getting pain meds from only us and can only have max of 4grams of tylenol per day Change to Hydrocodone 10/325mg 1- 2 po TID prn pain--#180 called to [place] 01/18/2011 Appointment: María Elena Appiah WPtel: [address] [place] [address] FOLLOW UP 01/18/2011 Patient Education: Patient Medication Summary Completed 01/18/2011 Visit Plan: Daily back stretches, moist heat, Biofreeze prn 11/29/2010 Appointment: María Elena Appiah WPtel: [address] [place] [address] ER Follow UP 11/29/2010 Patient Education: Patient Medication Summary Completed 11/29/2010 Visit Plan: Saline nasal flushes prn. Ty lenol/Motrin prn headache. Notify if persists/symptoms worsening. Finish augmentin Add Medrol Dose Pack 10/10/2010 Appointment: María Elena Appiah WPtel: [address] [place] [address] ACUTE ILLNESS 10/10/2010 Patient Education: Patient Medication Summary Completed 10/10/2010 Visit Plan: Cryotherapy x3 to multiple l esions on both forearms 07/19/2010 Appointment: María Elena Appiah WPtel: [address] [place] [address] OFFICE SURGERY 07/19/2010 Patient Education: Patient Medication Summary Completed 07/19/2010 Appointment: María Elena Appiah WPtel: [address] [place] [address] BP CHECK 07/06/2010 Patient Education: Patient Medication Summary Completed 07/06/2010 Appointment: María Elena Appiah WPtel: [address] [place] [address] BP CHECK 06/30/2010 Patient Education: Patient Medication Summary Completed 06/30/2010 Appointment: María Elena Appiah WPtel: [address] [place] [address] BP CHECK 06/20/2010 Patient Education: Patient Medication Summary Completed 06/20/2010 Visit Plan: Change Diovan to Exforge 160 /5mg QD OMT done to thoracics BP check in 2wks 06/07/2010 Appointment: María Elena Appiah WPtel: [address] [place] [address] FOLLOW UP 06/07/2010 Patient Education: Patient Medication Summary Completed 06/07/2010 Appointment: María Elena Appiahtel: [address] [place] [address] BP CHECK 06/03/2010 Patient Education: Patient Medication Summary Completed 06/03/2010 Appointment: María Elena Appiahtel: [address] [place] [address] BP CHECK 06/01/2010 Patient Education: Patient Medication Summary Completed 06/01/2010 Visit Plan: Irritated skin tags to left neck x2 excised at base with scissors and base cauterized 05/30/2010 Appointment: María Elena Appiah WPtel: [address] [place] [address] OFFICE SURGERY 05/30/2010 Patient Education: Patient Medication Summary Completed 05/30/2010 Visit Plan: Saline nasal flushes prn. Ty lenol/Motrin prn headache. Notify if persists/symptoms worsening. Restart Nasonex Has allergy testing set for May 15 04/27/2010 Appointment: María Elena Appiahtel: [address] [place] [address] ACUTE ILLNESS 04/27/2010 Patient Education: Patient Medication Summary Completed 04/27/2010 Visit Plan: Saline nasal flushes prn. Ty lenol/Motrin prn headache. Notify if persists/symptoms worsening. Omnaris BID plus injections 04/05/2010 Appointment: María Elena pApiah WPtel: [address] [place] [address] ACUTE ILLNESS 04/05/2010 Patient Education: Patient Medication Summary Completed 04/05/2010 Visit Plan: Saline nasal flushes prn. Ty lenol/Motrin prn headache. Notify if persists/symptoms worsening. 03/09/2010 Appointment: María Elena Appiahtel: [address] [place] [address] ACUTE ILLNESS 03/09/2010 Patient Education: Patient Medication Summary Completed 03/09/2010 Visit Plan: Cont Clonidine as is Cont Pr emarin Fwup with surgery as scheduled 03/03/2010 Appointment: María Elena Appiahtel: [address] [place] [address] FOLLOW UP 03/03/2010 Patient Education: Patient Medication Summary Completed 03/03/2010 Visit Plan: Check Pelvic US now Chelsey Sal C vs Hysterectomy 01/17/2010 Appointment: María Elena Appiahtel: [address] [place] [address] ACUTE ILLNESS 01/17/2010 Patient Education: Patient Medication Summary Completed 01/17/2010 Visit Plan: Check fasting lab and schedu le Mammogram 2gm Na Diet Trial of Ambien 10mg qhs Fwup pending lab results 12/27/2009 Appointment: María Elena Appiahtel: [address] [place] [address] ESTABLISHED PATIENT 12/27/2009 Patient Education: Patient Medication Summary Completed 12/27/2009 Referral: Canelo Overton WPtel: [phone] [id number] [place] Referral Initiated Referral: Philipp Flores WPtel: [address] [id number] [place] Referral Appointment Requested Instructions Comment . [...] to rest and hydrate. Discussed stroke and AL symptoms. Pt. instructed to seek ER eval [...]
--- OUTSIDE RECORDS SUMMARY | 2020-03-13 05:48 | XMS REPORT | CCD ---
Author Author Gale Appiah D.O. 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 Name Role Phone María Elena Appiah D.O., PP Unavailable CCM Unavailable Summary Purpose Interface Exchange Insurance Providers Payer name Policy type / Coverage type Covered constitution party ID Effective Begin Date Effective End Date [facility] Commercial Insurance [id number] Unknown Family History Family History data not found Social History Social History Element Codes Description Effective Dates Tobacco history SNOMED CT: 543332321 Never smoker 05/22/2011 Allergies, Adverse Reactions, Alerts [...] Instructions duloxetine 60 mg capsule,delayed release RxNorm: 463727 1 Capsu le(s) Oral QD 10/17/2019 04/13/2020 Active celecoxib 200 mg capsule RxNorm: 755503 1 Capsule(s) Or al two times a day as needed for pain 10/17/2019 01/14/2020 Active lisinopril 20 mg tablet RxNorm: 016755 1 Tablet(s) Oral QD 10/17/19 20 04/13/2020 Active gabapentin 300 mg capsule RxNorm: 498284 1 Capsule(s) O ral every night at bedtime 10/17/2019 01/15/2020 Active Singulair 10 mg tablet RxNorm: 053362 1 Tablet(s) Oral QD 10/17/2019 04/14/2020 Active Klor-Con 8 mEq tablet,extended release RxNorm: 989720 1 Tablet(s) Oral two times a day 10/17/2019 11/16/2019 Active metoprolol tartrate 100 mg tablet RxNorm: 747662 1 Tabl et(s) Oral two times a day 10/17/2019 04/13/2020 Active clonidine HCl 0.1 mg tablet RxNorm: 320872 1 Tablet(s) Oral fou r times a day 10/17/2019 04/13/2020 Active Januvia 100 mg tablet RxNorm: 357883 1 Tablet(s) Oral QD 10/17/2019 No Stop Date Active Lipitor 10 mg tablet RxNorm: 060581 1 Tablet(s) Oral QD 10/17/2019 Active Steglatro 15 mg tablet RxNorm: 9610829 1 Tablet(s) Oral QD 10/17/19 No Stop Date Active Glyxambi 25 mg-5 mg tablet RxNorm: 4039645 1 Tablet(s) Oral QD 01/202010/16/2019 Inactive Patient will bring in copay discount card as well Glyxambi 25 mg-5 mg tablet RxNorm: 3744993 1 Tablet(s) Oral QD 01/202010/14/2019 Inactive Patient will bring in copay discount card as well Keflex 500 mg capsule RxNorm: 499156 1 Capsule(s) Oral two time s a day 10/07/2019 10/14/2019 Inactive Premarin 1.25 mg tablet RxNorm: 802875 1 Tablet(s) Oral QD 09/30/1906/25/2020 Active hydrocodone 10 mg-acetaminophen 325 mg tablet RxNorm: 731394 1-2 Tablet(s) Oral three times a day as needed for pain 09/30/2019 09/30/2019 Inactive baclofen 10 mg tablet RxNorm: 219646 TAKE ONE TABLET BY MOUTH THREE TIMES A DAY NEEDED 09/19/2019 No Stop Date Active gabapentin 300 mg capsule RxNorm: 550497 TAKE ONE CAPSU LE BY MOUTH EVERY NIGHT AT BEDTIME 09/19/2019 10/16/2019 Inactive Klor-Con 8 mEq tablet,extended release RxNorm: 672915 T FARRUKH ONE TABLET BY MOUTH TWICE A DAY 1 Tablet(s) Oral two times a day 09/19/2019 10/16/2019 [place] [facility] hydrocodone 10 mg-acetaminophen 325 mg tablet RxNorm: 441697 1-2 Tablet(s) Oral three times a day as needed for pain 09/19/2019 09/29/2019 Inactive triamterene 75 mg-hydrochlorothiazide 50 mg tablet RxNorm: 3 83741 TAKE ONE TABLET BY MOUTH DAILY 09/11/2019 No Stop Date Active allopurinol 300 mg tablet RxNorm: 180752 TAKE ONE TABLET BY LOPEZ TH DAILY 09/11/2019 No Stop Date Active duloxetine 60 mg capsule,delayed release RxNorm: 269100 TAKE ONE CAPSULE BY MOUTH DAILY 09/11/2019 10/16/2019 Inactive Lipitor 10 mg tablet RxNorm: 577690 TAKE ONE TABLET BY MOUTH AT BEDTIME 09/11/2019 10/16/2019 Inactive lisinopril 20 mg tablet RxNorm: 052396 TAKE ONE TABLET BY MOUTH DAILY .... THIS REPLACE 10MG TABLETS 09/11/2019 10/16/2019 Inactive celecoxib 200 mg capsule RxNorm: 935855 TAKE ONE CAPSUL E BY MOUTH TWICE A DAY NEEDED FOR PAIN 09/11/2019 10/16/2019 Inactive clonidine HCl 0.1 mg tablet RxNorm: 538484 TAKE ONE TAB LET BY MOUTH FOUR TIMES A DAY 09/11/2019 10/16/2019 Inactive doxepin 25 mg capsule RxNorm: 5992906 1 Capsule(s) Oral every night at bedtime as needed for sleep 08/21/2019 11/18/2019 Active hydrocodone 10 mg-acetaminophen 325 mg tablet RxNorm: 568548 1-2 Tablet(s) PO TID 08/12/2019 09/29/2019 Inactive as needed for pa in - Previous quantity #240, will start dosing for #180 in April 2011 per Doctor Td. Medrol (Dustin) 4 mg tablets in a dose pack RxNorm: 622115 Tablet(s) Oral As Directed 07/21/2019 09/29/2019 Inactive Premarin 1.25 mg tablet RxNorm: 877139 1 Tablet(s) Oral QD 07/02/20 19 09/29/2019 Inactive hydrocodone 10 mg-acetaminophen 325 mg tablet RxNorm: 555143 1-2 Tablet(s) PO TID 07/01/2019 08/11/2019 Inactive as needed for pa in - Previous quantity #240, will start dosing for #180 in April 2011 per Doctor Td. gabapentin 300 mg capsule RxNorm: 570980 1 Capsule(s) PO QHS 201809/18/2019 Inactive celecoxib 200 mg capsule RxNorm: 623287 1 Capsule(s) Or al two times a day as needed for pain 06/27/2019 06/27/2019 Inactive furosemide 40 mg tablet RxNorm: 160332 TAKE ONE TABLET BY MOUTH EVERY MORNING NEEDED FOR EDEMA . TAKE WITH POTASSIUM 06/24/2019 No Stop Date Active doxepin 25 mg capsule RxNorm: 3368957 TAKE ONE CAPSULE B Y MOUTH EVERY NIGHT AT BEDTIME NEEDED FOR SLEEP 06/24/2019 08/20/2019 Inactive Singulair 10 mg tablet RxNorm: 445788 TAKE ONE TABLET BY MOUTH JOSÉ Y 06/24/2019 10/16/2019 Inactive lisinopril 20 mg tablet RxNorm: 382409 TAKE ONE TABLET BY MOUTH DAILY .... THIS REPLACE 10MG TABLETS 06/24/2019 09/10/2019 Inactive nystatin-triamcinolone 100,000 unit/g-0.1 % topical cream Rx Norm: 1484171 1 Application Topical two times a day 06/12/2019 06/19/2019 Inactive apply BID for 1 week nystatin-triamcinolone 100,000 unit/g-0.1 % topical cream Rx Norm: 8108000 1 Application Topical two times a day 06/12/2019 06/11/2019 Inactive apply BID for 1 week hydrocodone 10 mg-acetaminophen 325 mg tablet RxNorm: 826627 1-2 Tablet(s) PO QID as needed for pain MUST LAST 30 DAYS 05/28/2019 06/26/2019 Inactiv e (Response to an electronic controlled substance refill request - RxReferenceNumber: [id number]) baclofen 20 mg tablet RxNorm: 429743 1 Tablet(s) PO TID as needed for muscle spasm 05/19/2019 05/27/2019 Inactive gabapentin 300 mg capsule RxNorm: 591892 1 Capsule(s) PO QHS 201805/27/2019 Inactive lisinopril 20 mg tablet RxNorm: 423921 1 Tablet(s) PO Q D TAKE ONE TABLET BY MOUTH DAILY, REPLACES 10 MG DOSE 05/19/2019 06/23/2019 Inactive doxepin 25 mg capsule RxNorm: 4931918 TAKE ONE CAPSULE B Y MOUTH EVERY NIGHT AT BEDTIME NEEDED FOR SLEEP 05/16/2019 06/14/2019 Inactive lisinopril 20 mg tablet RxNorm: 514552 TAKE ONE TABLET BY MOUTH DAILY, REPLACES 10 MG DOSE 05/16/2019 05/18/2019 Inactive Singulair 10 mg tablet RxNorm: 266544 TAKE ONE TABLET BY MOUTH JOSÉ Y 05/16/2019 06/14/2019 Inactive gabapentin 300 mg capsule RxNorm: 246111 1 Capsule(s) PO QHS 201805/04/2019 Inactive estropipate 1.5 mg tablet RxNorm: 643070 1 Tablet(s) PO QD 05/05/2005/27/2019 Inactive estropipate 1.5 mg tablet RxNorm: 959516 1 Tablet(s) PO QD 05/05/20 19 05/04/2019 Inactive gabapentin 300 mg capsule RxNorm: 709625 1 Capsule(s) PO QHS 201805/18/2019 Inactive hydrocodone 10 mg-acetaminophen 325 mg tablet RxNorm: 838780 1-2 Tablet(s) PO QID as needed for pain MUST LAST 30 DAYS 04/25/2019 05/24/2019 Inactiv e (Response to an electronic controlled substance refill request - RxReferenceNumber: [id number]) cyclobenzaprine 10 mg tablet RxNorm: 165986 TAKE ONE TA BLET BY MOUTH THREE TIMES A DAY NEEDED FOR MUSCLE SPASMS 04/24/2019 05/18/2019 Inactive metoprolol tartrate 100 mg tablet RxNorm: 439378 TAKE O NE TABLET BY MOUTH TWICE A DAY 04/24/2019 10/16/2019 Inactive Lyrica 75 mg capsule RxNorm: 372984 1 Capsule(s) PO QHS 03/25/2019 Inactive duloxetine 60 mg capsule,delayed release RxNorm: 228296 TAKE ONE CAPSULE BY MOUTH DAILY 03/21/2019 05/19/2019 Inactive triamterene 75 mg-hydrochlorothiazide 50 mg tablet RxNorm: 3 80046 TAKE ONE TABLET BY MOUTH DAILY 03/21/2019 05/19/2019 Inactive Klor-Con 8 mEq tablet,extended release RxNorm: 821937 T FARRUKH ONE TABLET BY MOUTH TWICE A DAY 03/21/2019 09/18/2019 Inactive Lipitor 10 mg tablet RxNorm: 093652 TAKE ONE TABLET BY MOUTH AT BEDTIME 03/21/2019 09/10/2019 Inactive clonidine HCl 0.1 mg tablet RxNorm: 322424 TAKE ONE TAB LET BY MOUTH FOUR TIMES A DAY 03/21/2019 05/19/2019 Inactive allopurinol 300 mg tablet RxNorm: 747343 TAKE ONE TABLET BY LOPEZ TH DAILY 03/21/2019 05/19/2019 Inactive hydrocodone 10 mg-acetaminophen 325 mg tablet RxNorm: 781253 1-2 Tablet(s) PO QID as needed for pain MUST LAST 30 DAYS 02/28/2019 03/29/2019 Inactiv e (Response to an electronic controlled substance refill request - [id number]) furosemide 40 mg tablet RxNorm: 564446 TAKE ONE TABLET BY MOUTH EVERY MORNING NEEDED FOR EDEMA . TAKE WITH POTASSIUM 02/21/2019 03/22/2019 Inactive cyclobenzaprine 10 mg tablet RxNorm: 054244 TAKE ONE TA BLET BY MOUTH THREE TIMES A DAY NEEDED FOR MUSCLE SPASMS 02/21/2019 04/21/2019 Inactive lisinopril 20 mg tablet RxNorm: 404363 TAKE ONE TABLET BY MOUTH DAILY, REPLACES 10 MG DOSE 02/21/2019 05/15/2019 Inactive doxepin 25 mg capsule RxNorm: 0059177 TAKE ONE CAPSULE B Y MOUTH EVERY NIGHT AT BEDTIME NEEDED FOR SLEEP 02/21/2019 05/15/2019 Inactive nystatin 100,000 unit/gram topical cream RxNorm: 179018 APPLY TO AFFECTED AREA(S) TWO TIMES A DAY 02/21/2019 03/22/2019 Inactive estradiol 1 mg tablet RxNorm: 179729 2 Tablet(s) PO QD replaces premarin 01/22/2019 05/04/2019 Inactive lisinopril 20 mg tablet RxNorm: 659136 TAKE ONE TABLET BY MOUTH DAILY, REPLACES 10 MG DOSE 01/20/2019 02/18/2019 Inactive cyclobenzaprine 10 mg tablet RxNorm: 318931 TAKE ONE TA BLET BY MOUTH THREE TIMES A DAY NEEDED FOR MUSCLE SPASMS 01/20/2019 02/18/2019 Inactive metoprolol tartrate 100 mg tablet RxNorm: 095713 TAKE O NE TABLET BY MOUTH TWICE A DAY 01/20/2019 02/18/2019 Inactive cyclobenzaprine 10 mg tablet RxNorm: 081085 TAKE ONE TA BLET BY MOUTH THREE TIMES A DAY NEEDED FOR MUSCLE SPASMS 12/19/2018 01/17/2019 Inactive lisinopril 20 mg tablet RxNorm: 140496 TAKE ONE TABLET BY MOUTH DAILY, REPLACES 10 MG DOSE 12/19/2018 01/17/2019 Inactive duloxetine 60 mg capsule,delayed release RxNorm: 553144 TAKE ONE CAPSULE BY MOUTH DAILY 12/19/2018 01/17/2019 Inactive Lipitor 10 mg tablet RxNorm: 423708 TAKE ONE TABLET BY MOUTH AT BEDTIME 12/19/2018 01/17/2019 Inactive cyclobenzaprine 10 mg tablet RxNorm: 797309 1 Tablet(s) PO TID as needed for muscle spasm 11/19/2018 12/18/2018 Inactive Singulair 10 mg tablet RxNorm: 138583 1 Tablet(s) PO QD 11/19/2018 Inactive lisinopril 20 mg tablet RxNorm: 332118 TAKE ONE TABLET BY MOUTH DAILY, REPLACES 10 MG DOSE 11/15/2018 12/18/2018 Inactive hydrocodone 10 mg-acetaminophen 325 mg tablet RxNorm: 370064 1-2 Tablet(s) PO QID as needed for pain MUST LAST 30 DAYS 11/13/2018 12/12/2018 Inactiv e (Response to an electronic controlled substance refill request - RxReferenceNumber: [id number]) nystatin 100,000 unit/gram topical cream RxNorm: 450668 APPLY TO AFFECTED AREA(S) TWO TIMES A DAY 10/23/2018 11/06/2018 Inactive lisinopril 20 mg tablet RxNorm: 232266 1 Tablet(s) PO QD replac es 10mg dose 10/18/2018 11/14/2018 Inactive hydrocodone 10 mg-acetaminophen 325 mg tablet RxNorm: 818331 1-2 Tablet(s) QID as needed for pain MUST LAST 30 DAYS 10/08/2018 11/06/2018 Inactive (Response to an electronic controlled substance refill request - RxReferenceNumber: [id number]) lisinopril 10 mg tablet RxNorm: 282762 1 Tablet(s) PO QD 10/03/2018 0 01/21/2019 Inactive Celebrex 200 mg capsule RxNorm: 770731 TAKE ONE CAPSULE BY MOUT H TWICE A DAY 09/30/2018 05/04/2019 Inactive cyclobenzaprine 10 mg tablet RxNorm: 156639 TAKE ONE TA BLET BY MOUTH THREE TIMES A DAY NEEDED FOR MUSCLE SPASMS 09/30/2018 11/18/2018 Inactive doxepin 25 mg capsule RxNorm: 5672720 TAKE ONE CAPSULE B Y MOUTH EVERY NIGHT AT BEDTIME NEEDED 09/05/2018 10/16/2018 Inactive omeprazole 40 mg capsule,delayed release RxNorm: 066625 TAKE ONE CAPSULE BY MOUTH DAILY 09/05/2018 01/21/2019 Inactive furosemide 40 mg tablet RxNorm: 169121 TAKE ONE TABLET BY MOUTH EVERY MORNING NEEDED FOR EDEMA . TAKE WITH POTASSIUM 09/05/2018 11/03/2018 Inactive phentermine 37.5 mg tablet RxNorm: 040261 1 Tablet(s) PO QAM 201701/21/2019 Inactive doxepin 25 mg capsule RxNorm: 1123921 1 Capsule(s) PO QH S as needed for sleep TAKE ONE CAPSULE BY MOUTH EVERY NIGHT AT BEDTIME NEEDED 08/27/2018 09/04/2018 Inactive Keflex 500 mg capsule RxNorm: 786141 1 Capsule(s) PO TID 08/09/2018 1 10/19/2017 Inactive Diflucan 100 mg tablet RxNorm: 952785 1 Tablet(s) PO QD 08/09/2018 Inactive Premarin 1.25 mg tablet RxNorm: 623256 2 Tablet(s) PO QD 08/09/2018 0 05/04/2019 Inactive Zofran ODT 4 mg disintegrating tablet RxNorm: 492998 1 Tablet(s) PO Q4H as needed for nausea 08/09/2018 01/21/2019 Inactive metoprolol tartrate 100 mg tablet RxNorm: 216241 TAKE O NE TABLET BY MOUTH TWICE A DAY 2018 10/04/2018 Inactive doxepin 25 mg capsule RxNorm: 8003076 TAKE ONE CAPSULE B Y MOUTH EVERY NIGHT AT BEDTIME NEEDED 2018 08/26/2018 Inactive cyclobenzaprine 10 mg tablet RxNorm: 747773 TAKE ONE TA BLET BY MOUTH THREE TIMES A DAY NEEDED FOR MUSCLE SPASMS 2018 09/29/2018 Inactive hydrocodone 10 mg-acetaminophen 325 mg tablet RxNorm: 475555 1-2 Tablet(s) QID as needed for pain MUST LAST 30 DAYS 07/29/2018 08/27/2018 Inactive (Response to an electronic controlled substance refill request - RxReferenceNumber: [id number]) nystatin 100,000 unit/gram topical powder RxNorm: 028123 Applic ation TOP BID 07/22/2018 08/04/2018 Inactive doxepin 25 mg capsule RxNorm: 0726927 1 Capsule(s) PO QHS as needed 07/22/2018 08/05/2018 Inactive triamterene 75 mg-hydrochlorothiazide 50 mg tablet RxNorm: 3 96647 TAKE ONE TABLET BY MOUTH DAILY 07/05/2018 10/02/2018 Inactive duloxetine 60 mg capsule,delayed release RxNorm: 627767 TAKE ONE CAPSULE BY MOUTH DAILY 07/05/2018 09/02/2018 Inactive Klor-Con 8 mEq tablet,extended release RxNorm: 982610 T FARRUKH ONE TABLET BY MOUTH TWICE A DAY 07/05/2018 10/02/2018 Inactive Lipitor 10 mg tablet RxNorm: 984486 TAKE ONE TABLET BY MOUTH AT BEDTIME 07/05/2018 09/02/2018 Inactive allopurinol 300 mg tablet RxNorm: 902560 TAKE ONE TABLET BY LOPEZ TH DAILY 07/05/2018 10/02/2018 Inactive clonidine HCl 0.1 mg tablet RxNorm: 742103 TAKE ONE TAB LET BY MOUTH FOUR TIMES A DAY 07/05/2018 10/02/2018 Inactive hydrocodone 10 mg-acetaminophen 325 mg tablet RxNorm: 795402 1-2 Tablet(s) QID as needed for pain MUST LAST 30 DAYS 06/28/2018 07/27/2018 Inactive (Response to an electronic controlled substance refill request - RxReferenceNumber: [id number]) MediHoney (calcium alginate-honey) 4" X 5" bandage RxNorm: 1 Application TOP QD 06/17/2018 06/26/2018 Inactive honey-hydrocolloid dressing 4" X 5" RxNorm: 1 Application TOP QD 06/17/2018 07/16/2018 Inactive furosemide 40 mg tablet RxNorm: 240805 TAKE ONE TABLET BY MOUTH EVERY MORNING NEEDED FOR EDEMA . TAKE WITH POTASSIUM 06/10/2018 07/09/2018 Inactive This is a refill request. hydrocodone 10 mg-acetaminophen 325 mg tablet RxNorm: 503892 1-2 Tablet(s) QID as needed for pain MUST LAST 30 DAYS 05/30/2018 06/27/2018 Inactive (Response to an electronic controlled substance refill request - RxReferenceNumber: [id number]) acyclovir 800 mg tablet RxNorm: 781164 1 Tablet(s) PO 5x day 201705/22/2018 Inactive Premarin 1.25 mg tablet RxNorm: 308577 1-2 Tablet(s) PO QD 09/01/27 1807/13/2018 Inactive cyclobenzaprine 10 mg tablet RxNorm: 130027 1 Tablet(s) PO TID as needed for muscle spasm 05/09/2018 05/08/2018 Inactive Medrol (Dustin) 4 mg tablets in a dose pack RxNorm: 635772 Tablet(s) PO As Directed 05/02/2018 06/16/2018 Inactive hydrocodone 10 mg-acetaminophen 325 mg tablet RxNorm: 155309 1-2 Tablet(s) QID as needed for pain MUST LAST 30 DAYS 04/30/2018 05/29/2018 Inactive (Response to an electronic controlled substance refill request - RxReferenceNumber: [id number]) duloxetine 60 mg capsule,delayed release RxNorm: 578061 TAKE ONE CAPSULE BY MOUTH DAILY 04/16/2018 05/15/2018 Inactive Celebrex 200 mg capsule RxNorm: 518418 TAKE ONE CAPSULE BY MOUT H TWICE A DAY 04/16/2018 06/14/2018 Inactive Singulair 10 mg tablet RxNorm: 781007 TAKE ONE TABLET BY MOUTH JOSÉ Y 04/16/2018 11/19/2018 Inactive Lipitor 10 mg tablet RxNorm: 264815 TAKE ONE TABLET BY MOUTH AT BEDTIME 04/16/2018 05/15/2018 Inactive hydrocodone 10 mg-acetaminophen 325 mg tablet RxNorm: 237193 1-2 Tablet(s) QID as needed for pain MUST LAST 30 DAYS 03/29/2018 04/27/2018 Inactive (Response to an electronic controlled substance refill request - RxReferenceNumber: [id number]) cyclobenzaprine 10 mg tablet RxNorm: 035809 1 Tablet(s) PO TID as needed for muscle spasm 03/18/2018 05/09/2018 Inactive omeprazole 40 mg capsule,delayed release RxNorm: 210736 1 Capsu le(s) PO QD 02/26/2018 08/24/2018 Inactive hydrocodone 10 mg-acetaminophen 325 mg tablet RxNorm: 476169 1-2 Tablet(s) QID as needed for pain MUST LAST 30 DAYS 02/26/2018 03/27/2018 Inactive (Response to an electronic controlled substance refill request - RxReferenceNumber: [id number]) metoprolol tartrate 100 mg tablet RxNorm: 764066 1 Tablet(s) PO BID 02/18/2018 08/05/2018 Inactive Lyrica 75 mg capsule RxNorm: 417993 1 Capsule(s) PO QHS 01/30/2018 Inactive phentermine 37.5 mg tablet RxNorm: 496125 1 Tablet(s) PO QAM 201706/16/2018 Inactive hydrocodone 10 mg-acetaminophen 325 mg tablet RxNorm: 774546 1-2 Tablet(s) QID as needed for pain MUST LAST 30 DAYS 01/29/2018 02/25/2018 Inactive (Response to an electronic controlled substance refill request - RxReferenceNumber: [id number]) Klor-Con 8 mEq tablet,extended release RxNorm: 976535 1 Tablet( s) PO BID 01/14/2018 07/04/2018 Inactive allopurinol 300 mg tablet RxNorm: 833154 1 Tablet(s) PO QD 01/15/20 18 07/04/2018 Inactive Lipitor 10 mg tablet RxNorm: 199417 1 Tablet(s) PO QHS 01/14/201812/2017 Inactive triamterene 75 mg-hydrochlorothiazide 50 mg tablet RxNorm: 3 20785 1 Tablet(s) PO QD 01/14/2018 07/04/2018 Inactive hydrocodone 10 mg-acetaminophen 325 mg tablet RxNorm: 086204 1-2 Tablet(s) QID as needed for pain MUST LAST 30 DAYS 12/27/2017 01/25/2018 Inactive (Response to an electronic controlled substance refill request - RxReferenceNumber: [id number]) Onglyza 5 mg tablet RxNorm: 290878 1 Tablet(s) PO QD 12/18/201701/29 Inactive metformin 500 mg tablet RxNorm: 000465 1 Tablet(s) PO BID 12/11/2017 12/10/2017 Inactive metformin 500 mg tablet RxNorm: 651896 1 Tablet(s) PO BID 12/11/2017 12/17/2017 Inactive furosemide 40 mg tablet RxNorm: 331692 1 Tablet(s) PO Q AM prn edema--take with potassium 12/11/2017 06/08/2018 Inactive cyclobenzaprine 10 mg tablet RxNorm: 950540 1 Tablet(s) PO TID as needed for muscle spasm 12/11/2017 03/18/2018 Inactive hydrocodone 10 mg-acetaminophen 325 mg tablet RxNorm: 137622 1-2 Tablet(s) QID as needed for pain MUST LAST 30 DAYS 10/23/2017 11/21/2017 Inactive (Response to an electronic controlled substance refill request - RxReferenceNumber: [id number]) Lipitor 10 mg tablet RxNorm: 034280 1 Tablet(s) PO QHS 10/16/201703/2018 Inactive cyclobenzaprine 10 mg tablet RxNorm: 711221 1 Tablet(s) PO TID as needed for muscle spasm 10/09/2017 12/10/2017 Inactive hydroxyzine HCl 25 mg tablet RxNorm: 906054 1 Tablet(s) PO BID as needed for anxiety 09/20/2017 01/29/2018 Inactive Effexor XR 75 mg capsule,extended release RxNorm: 709296 1 Caps ule(s) PO QD 09/20/2017 01/29/2018 Inactive metoprolol tartrate 100 mg tablet RxNorm: 676469 1 Tablet(s) PO BID 08/20/2017 02/18/2018 Inactive baclofen 20 mg tablet RxNorm: 607914 1 Tablet(s) PO TID as needed for muscle spasm 08/20/2017 01/21/2019 Inactive clonidine HCl 0.1 mg tablet RxNorm: 819591 1 Tablet(s) PO QID 08/2005/16/2018 Inactive Seroquel 25 mg tablet RxNorm: 352599 1 Tablet(s) PO QHS 08/17/2017 Inactive Seroquel 25 mg tablet RxNorm: 266019 1 Tablet(s) PO QHS 08/17/2017 Inactive Diflucan 100 mg tablet RxNorm: 129207 TAKE ONE TABLET BY MOUTH JOSÉ Y 07/25/2017 08/07/2017 Inactive hydrocodone 10 mg-acetaminophen 325 mg tablet RxNorm: 517870 1-2 Tablet(s) QID as needed for pain MUST LAST 30 DAYS 07/19/2017 08/17/2017 Inactive (Response to an electronic controlled substance refill request - RxReferenceNumber: [id number]) clindamycin 300 mg capsule RxNorm: 304847 1 Capsule(s) PO TID 07/1907/28/2017 Inactive clotrimazole-betamethasone 1 %-0.05 % topical cream RxNorm: 744050 Application TOP BID to elbow rash 07/19/2017 06/16/2018 Inactive Singulair 10 mg tablet RxNorm: 665830 Tablet(s) TAKE ONE TABLET BY MOUTH DAILY 07/18/2017 04/13/2018 Inactive triamterene 75 mg-hydrochlorothiazide 50 mg tablet RxNorm: 3 21223 1 Tablet(s) PO QD 07/18/2017 01/14/2018 Inactive Celebrex 200 mg capsule RxNorm: 765915 Capsule(s) TAKE ONE CAPSULE BY MOUTH TWICE A DAY 07/18/2017 10/15/2017 Inactive hydrocodone 10 mg-acetaminophen 325 mg tablet RxNorm: 960441 1-2 Tablet(s) QID as needed for pain MUST LAST 30 DAYS 06/19/2017 07/18/2017 Inactive (Response to an electronic controlled substance refill request - RxReferenceNumber: [id number]) hydrocodone 10 mg-acetaminophen 325 mg tablet RxNorm: 318257 1-2 Tablet(s) QID as needed for pain MUST LAST 30 DAYS 06/19/2017 06/18/2017 Inactive (Response to an electronic controlled substance refill request - RxReferenceNumber: [id number]) baclofen 20 mg tablet RxNorm: 318983 1 Tablet(s) PO TID as needed for muscle spasm 06/18/2017 08/20/2017 Inactive Medrol (Dustin) 4 mg tablets in a dose pack RxNorm: 897178 Tablet(s) PO As Directed 06/05/2017 07/18/2017 Inactive omeprazole 40 mg capsule,delayed release RxNorm: 367705 1 Capsu le(s) PO QD 04/20/2017 10/16/2017 Inactive Premarin 1.25 mg tablet RxNorm: 822647 1-2 Tablet(s) PO QD 04/11/20 17 05/15/2018 Inactive duloxetine 60 mg capsule,delayed release RxNorm: 050270 1 Capsu le(s) PO QD 04/11/2017 09/19/2017 Inactive furosemide 40 mg tablet RxNorm: 097957 1 Tablet(s) PO Q AM prn edema--take with potassium 04/11/2017 12/11/2017 Inactive Klor-Con 8 mEq tablet,extended release RxNorm: 077683 1 Tablet( s) PO BID 04/11/2017 01/14/2018 Inactive Lipitor 10 mg tablet RxNorm: 446417 1 Tablet(s) PO QHS 04/11/201702/2018 Inactive amlodipine 5 mg-benazepril 20 mg capsule RxNorm: 256041 1 Capsu le(s) PO QD 04/11/2017 01/29/2018 Inactive allopurinol 300 mg tablet RxNorm: 327585 1 Tablet(s) PO QD 04/11/20 17 01/14/2018 Inactive clonidine HCl 0.1 mg tablet RxNorm: 367132 1 Tablet(s) PO QID 04/0508/19/2017 Inactive baclofen 20 mg tablet RxNorm: 740988 1 Tablet(s) PO TID as needed for muscle spasm 04/02/2017 06/18/2017 Inactive Premarin 1.25 mg tablet RxNorm: 363752 1-2 Tablet(s) PO QD 03/20/20 17 04/10/2017 Inactive hydrocodone 10 mg-acetaminophen 325 mg tablet RxNorm: 712301 1-2 Tablet(s) QID as needed for pain MUST LAST 30 DAYS 03/14/2017 01/21/2019 Inactive (Response to an electronic controlled substance refill request - RxReferenceNumber: [id number]) metoprolol tartrate 100 mg tablet RxNorm: 385586 1 Tablet(s) PO BID 02/12/2017 08/20/2017 Inactive hydrocodone 10 mg-acetaminophen 325 mg tablet RxNorm: 118874 1-2 Tablet(s) QID as needed for pain MUST LAST 30 DAYS 02/08/2017 03/09/2017 Inactive (Response to an electronic controlled substance refill request - RxReferenceNumber: [id number]) metoprolol tartrate 100 mg tablet RxNorm: 641143 TAKE O NE TABLET BY MOUTH TWICE A DAY 01/11/2017 02/12/2017 Inactive metoprolol tartrate 100 mg tablet RxNorm: 005149 1 Tablet(s) PO BID 12/18/2016 12/17/2016 Inactive metoprolol tartrate 100 mg tablet RxNorm: 658428 1 Tablet(s) PO BID 12/18/2016 01/10/2017 Inactive furosemide 40 mg tablet RxNorm: 786858 1 Tablet(s) PO Q AM prn edema--take with potassium 12/13/2016 02/10/2017 Inactive amitriptyline 100 mg tablet RxNorm: 345783 1 Tablet(s) PO QHS 11/2812/12/2016 Inactive baclofen 20 mg tablet RxNorm: 009141 1 Tablet(s) PO TID as needed for muscle spasm 11/14/2016 04/01/2017 Inactive triamterene 75 mg-hydrochlorothiazide 50 mg tablet RxNorm: 3 46222 1 Tablet(s) PO QD 11/14/2016 11/13/2016 Inactive metolazone 2.5 mg tablet RxNorm: 527861 TAKE ONE TABLET BY MOUTH DAILY NEEDED FOR EDEMA 11/14/2016 12/12/2016 Inactive triamterene 75 mg-hydrochlorothiazide 50 mg tablet RxNorm: 3 26607 1 Tablet(s) PO QD 11/14/2016 07/18/2017 Inactive amitriptyline 50 mg tablet RxNorm: 782244 TAKE ONE TABL ET BY MOUTH AT BEDTIME NEEDED FOR SLEEP 11/14/2016 11/27/2016 Inactive Cymbalta 60 mg capsule,delayed release RxNorm: 199145 1 Capsule (s) PO QHS 11/14/2016 12/12/2016 Inactive clonidine HCl 0.1 mg tablet RxNorm: 946741 1 Tablet(s) PO QID 11/1304/04/2017 Inactive amitriptyline 50 mg tablet RxNorm: 507291 1 Tablet(s) P O QHS as needed for sleep 11/01/2016 11/27/2016 Inactive duloxetine 60 mg capsule,delayed release RxNorm: 014936 TAKE ONE CAPSULE BY MOUTH DAILY 10/20/2016 01/17/2017 Inactive allopurinol 300 mg tablet RxNorm: 060096 TAKE ONE TABLET BY LOPEZ TH DAILY 10/20/2016 01/16/2017 Inactive Lyrica 75 mg capsule RxNorm: 330328 TAKE ONE CAPSULE BY MOUTH EVERY NIGHT AT BEDTIME 10/20/2016 12/10/2016 Inactive Klor-Con 8 mEq tablet,extended release RxNorm: 460066 T FARRUKH ONE TABLET BY MOUTH TWICE A DAY 10/20/2016 01/17/2017 Inactive Celebrex 200 mg capsule RxNorm: 475294 TAKE ONE CAPSULE BY MOUT H TWICE A DAY 10/20/2016 07/18/2017 Inactive Bystolic 10 mg tablet RxNorm: 110605 TAKE ONE TABLET BY MOUTH EVERY NIGHT AT BEDTIME 10/20/2016 12/17/2016 Inactive amlodipine 5 mg-benazepril 20 mg capsule RxNorm: 904513 TAKE ONE CAPSULE BY MOUTH EVERY NIGHT AT BEDTIME -- TO REPLACE AMLODOPINE 10/20/20162016 Inactive Lipitor 10 mg tablet RxNorm: 804679 TAKE ONE TABLET BY MOUTH EVERY NIGHT AT BEDTIME 10/20/2016 01/17/2017 Inactive alprazolam 0.5 mg tablet RxNorm: 095386 3 Tablet(s) PO QHS as needed for sleep/anxiety 09/20/2016 10/31/2016 Inactive Tamiflu 75 mg capsule RxNorm: 958803 1 Capsule(s) PO QD 09/19/2016 Inactive Lyrica 75 mg capsule RxNorm: 297399 1 Capsule(s) PO QHS 09/19/2016 Inactive prednisone 20 mg tablet RxNorm: 762048 1 Tablet(s) PO QD 08/10/2016 1 10/17/2015 Inactive doxycycline hyclate 100 mg capsule RxNorm: 2554437 1 Capsule(s) PO BID 08/10/2016 08/19/2016 Inactive Medrol (Dustin) 4 mg tablets in a dose pack RxNorm: 928968 Tablet(s) PO As Directed 07/31/2016 08/22/2016 Inactive Singulair 10 mg tablet RxNorm: 728228 TAKE ONE TABLET BY MOUTH JOSÉ Y 07/27/2016 07/18/2017 Inactive hydrocodone 10 mg-acetaminophen 325 mg tablet RxNorm: 957132 1-2 Tablet(s) QID as needed for pain MUST LAST 30 DAYS 07/26/2016 08/24/2016 Inactive (Response to an electronic controlled substance refill request - RxReferenceNumber: [id number]) alprazolam 0.5 mg tablet RxNorm: 369724 3 Tablet(s) PO QHS as needed for anxiety or sleep 07/26/2016 09/20/2016 Inactive clindamycin 300 mg capsule RxNorm: 697545 1 Capsule(s) PO TID 07/2007/29/2016 Inactive Diflucan 100 mg tablet RxNorm: 660795 1 Tablet(s) PO QD 07/20/2016 Inactive Levaquin 500 mg tablet RxNorm: 975600 1 Tablet(s) PO QD 07/17/2016 Inactive Levaquin 500 mg tablet RxNorm: 146724 1 Tablet(s) PO QD 07/10/2016 Inactive Levaquin 500 mg tablet RxNorm: 508087 1 Tablet(s) PO QD 07/10/2016 Inactive mupirocin 2 % topical ointment RxNorm: 875392 TOP Apply topically to affected areas twice daily 07/06/2016 09/18/2016 Inactive Singulair 10 mg tablet RxNorm: 298220 TAKE ONE TABLET BY MOUTH JOSÉ Y 06/21/2016 01/21/2019 Inactive alprazolam 0.5 mg tablet RxNorm: 764200 TAKE THREE TABL ETS BY MOUTH AT BEDTIME NEEDED FOR SLEEP OR STRESS 05/22/2016 06/20/2016 Inactive triamterene 75 mg-hydrochlorothiazide 50 mg tablet RxNorm: 3 06575 1 Tablet(s) PO QD 04/26/2016 10/21/2016 Inactive Premarin 1.25 mg tablet RxNorm: 718317 1-2 Tablet(s) PO QD 04/26/20 16 03/20/2017 Inactive Klor-Con 8 mEq tablet,extended release RxNorm: 434086 1 Tablet( s) PO BID 04/26/2016 10/19/2016 Inactive Celebrex 200 mg capsule RxNorm: 108485 1 Capsule(s) PO BID TAKE ONE CAPSULE BY MOUTH EVERY DAY 04/26/2016 10/19/2016 Inactive Lipitor 10 mg tablet RxNorm: 094531 1 Tablet(s) PO QHS 04/26/201605/2017 Inactive allopurinol 300 mg tablet RxNorm: 449690 1 Tablet(s) PO QD TAKE ONE TABLET BY MOUTH EVERY DAY 04/26/2016 10/19/2016 Inactive amlodipine 5 mg-benazepril 20 mg capsule RxNorm: 917904 1 Capsule(s) PO QHS replaces amlodopine 04/26/2016 10/19/2016 Inactive duloxetine 60 mg capsule,delayed release RxNorm: 306559 1 Capsu le(s) PO QD 04/26/2016 10/19/2016 Inactive Bystolic 10 mg tablet RxNorm: 988119 1 Tablet(s) PO QHS 04/26/2016 Inactive Singulair 10 mg tablet RxNorm: 591926 1 Tablet(s) PO QD TAKE ONE TABLET BY MOUTH DAILY 04/26/2016 06/20/2016 Inactive clonidine HCl 0.1 mg tablet RxNorm: 248103 1 Tablet(s) PO QID 04/2610/22/2016 Inactive hydrocodone 10 mg-acetaminophen 325 mg tablet RxNorm: 605039 1-2 Tablet(s) QID as needed for pain TAKE ONE TO TWO TABLETS BY MOUTH FOUR TIMES A DAY . MUST LAST 30 DAYS 03/31/2016 04/29/2016 Inactive (Response to an electronic controlled substance refill request - RxReferenceNumber: [id number]) Klor-Con 8 mEq tablet,extended release RxNorm: 771426 T FARRUKH ONE TABLET BY MOUTH TWICE A DAY 03/24/2016 09/29/2019 Inactive prednisone 20 mg tablet RxNorm: 240793 1 Tablet(s) PO QD 03/09/2016 0 03/08/2016 Inactive prednisone 20 mg tablet RxNorm: 124586 1 Tablet(s) PO QD 03/09/2016 0 03/13/2016 Inactive alprazolam 0.5 mg tablet RxNorm: 139752 3 Tablet(s) PO QHS as needed for sleep/stress 03/02/2016 01/21/2019 Inactive mupirocin 2 % topical ointment RxNorm: 489730 TOP twice daily to affected areas of face and neck 02/21/2016 04/25/2016 Inactive clonidine HCl 0.1 mg tablet RxNorm: 750374 TAKE ONE TAB LET BY MOUTH FOUR TIMES A DAY 02/15/2016 09/29/2019 Inactive clonidine HCl 0.1 mg tablet RxNorm: 935425 1 Tablet(s) PO QID 02/1404/25/2016 Inactive Premarin 1.25 mg tablet RxNorm: 933456 1-2 Tablet(s) PO QD 02/15/20 16 03/15/2016 Inactive Klor-Con 8 mEq tablet,extended release RxNorm: 552266 T FARRUKH ONE TABLET BY MOUTH TWICE A DAY 02/15/2016 03/15/2016 Inactive potassium chloride ER 20 mEq tablet,extended release(part/cr yst) RxNorm: 604386 2 Tablet(s) PO BID 02/15/2016 03/15/2016 Inactive Macrobid 100 mg capsule RxNorm: 920605 1 Capsule(s) PO BID 01/24/20 16 01/30/2016 Inactive prednisone 20 mg tablet RxNorm: 145738 Take 3tabs PO QD x 2 days, then 2 tabs PO QD x 2 days, then 1 tab PO QD x 2 days, then 1/2 tab PO QDy x 2 days 12/23/2015 04/25/2016 Inactive Klor-Con 8 mEq tablet,extended release RxNorm: 316709 T FARRUKH ONE TABLET BY MOUTH TWICE A DAY 12/20/2015 02/14/2016 Inactive alprazolam 1 mg tablet RxNorm: 266864 1 1/2 Tablet(s) PO QHS 201501/23/2016 Inactive nystatin 100,000 unit/gram topical cream RxNorm: 880132 APPLY TO AFFECTED AREA(S) TWO TIMES A DAY 11/30/2015 12/14/2015 Inactive Singulair 10 mg tablet RxNorm: 741951 TAKE ONE TABLET BY MOUTH JOSÉ Y 11/18/2015 04/25/2016 Inactive allopurinol 300 mg tablet RxNorm: 348007 1 Tablet(s) PO QD TAKE ONE TABLET BY MOUTH EVERY DAY 10/26/2015 04/22/2016 Inactive Singulair 10 mg tablet RxNorm: 434122 TAKE ONE TABLET BY MOUTH JOSÉ Y 10/26/2015 11/17/2015 Inactive duloxetine 60 mg capsule,delayed release RxNorm: 193082 1 Capsu le(s) PO QD 10/26/2015 04/22/2016 Inactive triamterene 75 mg-hydrochlorothiazide 50 mg tablet RxNorm: 3 12601 1 Tablet(s) PO QD 10/26/2015 11/14/2016 Inactive potassium chloride ER 20 mEq tablet,extended release(part/cr yst) RxNorm: 636142 2 Tablet(s) PO BID 10/26/2015 02/14/2016 Inactive Lipitor 10 mg tablet RxNorm: 960832 1 Tablet(s) PO QHS 10/26/2015 Inactive amlodipine 5 mg-benazepril 20 mg capsule RxNorm: 606894 1 Capsule(s) PO QHS replaces amlodopine 10/26/2015 04/22/2016 Inactive Bystolic 10 mg tablet RxNorm: 882695 1 Tablet(s) PO QHS 10/26/2015 Inactive amlodipine 5 mg-benazepril 20 mg capsule RxNorm: 930366 1 Capsule(s) PO QHS replaces amlodopine 10/06/2015 10/25/2015 Inactive amlodipine 5 mg tablet RxNorm: 436241 1 Tablet(s) PO QHS 09/30/2015 0 04/25/2016 Inactive metolazone 2.5 mg tablet RxNorm: 495557 TAKE ONE TABLET BY MOUTH DAILY NEEDED FOR EDEMA 09/30/2015 01/21/2019 Inactive duloxetine 60 mg capsule,delayed release RxNorm: 215869 1 Capsu le(s) PO QD 09/30/2015 10/25/2015 Inactive cephalexin 500 mg capsule RxNorm: 241612 1 Capsule(s) PO BID 201509/23/2015 Inactive mupirocin 2 % topical ointment RxNorm: 180774 TOP twice daily to affected areas of face and neck 09/14/2015 02/20/2016 Inactive baclofen 20 mg tablet RxNorm: 271516 1 Tablet(s) PO TID as needed for muscle spasm 09/01/2015 11/14/2016 Inactive clonidine HCl 0.1 mg tablet RxNorm: 287731 1 Tablet(s) PO QID 09/0102/14/2016 Inactive alprazolam 1 mg tablet RxNorm: 177958 1 1/2 Tablet(s) PO QHS 201409/09/2015 Inactive baclofen 20 mg tablet RxNorm: 477839 1 Tablet(s) PO TID as needed for muscle spasm 07/23/2015 09/01/2015 Inactive omeprazole 40 mg capsule,delayed release RxNorm: 152629 1 Capsu le(s) PO QD 07/23/2015 04/25/2016 Inactive alprazolam 1 mg tablet RxNorm: 996101 1 1/2 Tablet(s) PO QHS 201408/10/2015 Inactive Bystolic 10 mg tablet RxNorm: 711124 1 Tablet(s) PO BID 06/24/2015 Inactive allopurinol 300 mg tablet RxNorm: 397640 1 Tablet(s) PO QD TAKE ONE TABLET BY MOUTH EVERY DAY 06/23/2015 10/20/2015 Inactive alprazolam 1 mg tablet RxNorm: 178234 1 1/2 Tablet(s) PO QHS 201407/06/2015 Inactive clonidine HCl 0.1 mg tablet RxNorm: 559996 1 Tablet(s) PO QID 06/0209/01/2015 Inactive clonidine HCl 0.1 mg tablet RxNorm: 241664 1 Tablet(s) PO QID 06/0206/01/2015 Inactive Cymbalta 60 mg capsule,delayed release RxNorm: 947808 1 Capsule (s) PO QHS 06/02/2015 08/30/2015 Inactive Cymbalta 60 mg capsule,delayed release RxNorm: 088202 1 Capsule (s) PO QHS 06/02/2015 06/01/2015 Inactive clonidine HCl 0.1 mg tablet RxNorm: 872026 1 Tablet(s) PO TID 05/3106/01/2015 Inactive replaces 0.2mg dose metolazone 2.5 mg tablet RxNorm: 979141 TAKE ONE TABLET BY MOUTH DAILY NEEDED FOR EDEMA 05/21/2015 06/19/2015 Inactive Singulair 10 mg tablet RxNorm: 149204 TAKE ONE TABLET BY MOUTH JOSÉ Y 05/21/2015 10/17/2015 Inactive Cymbalta 30 mg capsule,delayed release RxNorm: 599733 1 Capsule (s) PO QHS 05/20/2015 11/14/2016 Inactive betamethasone valerate 0.1 % topical cream RxNorm: 309306 Appli cation TOP BID 05/10/2015 04/25/2016 Inactive Bactroban 2 % topical ointment RxNorm: 315101 Application TOP BID 0 05/10/2015 06/20/2015 Inactive baclofen 20 mg tablet RxNorm: 154043 1 Tablet(s) PO TID as needed 0 04/26/2015 07/23/2015 Inactive Lipitor 10 mg tablet RxNorm: 032877 1 Tablet(s) PO QHS 04/26/201508/2016 Inactive clonidine HCl 0.1 mg tablet RxNorm: 981716 1 Tablet(s) PO TID 04/2605/30/2015 Inactive replaces 0.2mg dose Klor-Con 8 mEq tablet,extended release RxNorm: 399827 1 Tablet( s) PO BID 04/26/2015 04/25/2016 Inactive metolazone 2.5 mg tablet RxNorm: 928230 1 Tablet(s) PO QD as ne eded for edema 04/26/2015 04/25/2015 Inactive triamterene 75 mg-hydrochlorothiazide 50 mg tablet RxNorm: 3 13908 1 Tablet(s) PO QD 04/26/2015 10/22/2015 Inactive Premarin 1.25 mg tablet RxNorm: 479320 1-2 Tablet(s) PO QD 04/26/20 15 10/22/2015 Inactive Bystolic 10 mg tablet RxNorm: 443864 1 Tablet(s) PO QAM TAKE ONE TABLET BY MOUTH EVERY MORNING 04/23/2015 06/23/2015 Inactive clonidine HCl 0.1 mg tablet RxNorm: 028781 1 Tablet(s) PO TID 03/2304/25/2015 Inactive replaces 0.2mg dose nystatin 100,000 unit/gram topical cream RxNorm: 339986 Applica tion TOP BID 03/23/2015 06/20/2015 Inactive baclofen 20 mg tablet RxNorm: 761640 1 Tablet(s) PO TID as needed 0 03/23/2015 04/25/2015 Inactive Premarin 1.25 mg tablet RxNorm: 816708 1-2 Tablet(s) PO QD 03/23/20 15 04/25/2015 Inactive Klor-Con 8 mEq tablet,extended release RxNorm: 694663 1 Tablet( s) PO BID 03/23/2015 04/25/2015 Inactive cefdinir 300 mg capsule RxNorm: 719952 2 Capsule(s) PO QD 03/16/2015 03/25/2015 Inactive baclofen 20 mg tablet RxNorm: 758756 1 Tablet(s) PO TID as needed 0 03/02/2015 03/22/2015 Inactive allopurinol 300 mg tablet RxNorm: 830880 1 Tablet(s) PO QD TAKE ONE TABLET BY MOUTH EVERY DAY 02/22/2015 05/22/2015 Inactive Klor-Con M20 mEq tablet,extended release RxNorm: 275269 2 Tablet(s) PO BID to use with lasix 02/22/2015 06/20/2015 Inactive clonidine HCl 0.1 mg tablet RxNorm: 900743 1 Tablet(s) PO TID 02/1903/22/2015 Inactive replaces 0.2mg dose Lipitor 10 mg tablet RxNorm: 630490 1 Tablet(s) PO QHS 01/20/201506/2015 Inactive Lipitor 10 mg tablet RxNorm: 432579 1 Tablet(s) PO QHS 01/20/2015 Inactive Singulair 10 mg tablet RxNorm: 740219 1 Tablet(s) PO QD TAKE ONE TABLET BY MOUTH EVERY DAY 11/20/2014 05/18/2015 Inactive Lipitor 10 mg tablet RxNorm: 108522 1 Tablet(s) PO QHS 11/20/201408/2015 Inactive allopurinol 300 mg tablet RxNorm: 983044 1 Tablet(s) PO QD TAKE ONE TABLET BY MOUTH EVERY DAY 11/20/2014 02/16/2015 Inactive Bystolic 10 mg tablet RxNorm: 909750 1 Tablet(s) PO QAM TAKE ONE TABLET BY MOUTH EVERY MORNING 11/20/2014 04/22/2015 Inactive Klor-Con 8 mEq tablet,extended release RxNorm: 148757 1 Tablet( s) PO BID 11/20/2014 02/17/2015 Inactive baclofen 20 mg tablet RxNorm: 400729 1 Tablet(s) PO TID as needed 0 11/20/2014 01/21/2019 Inactive baclofen 20 mg tablet RxNorm: 058009 1 Tablet(s) PO TID as needed 0 10/27/2014 11/19/2014 Inactive baclofen 20 mg tablet RxNorm: 615261 1 Tablet(s) PO TID as needed 0 10/26/2014 03/01/2015 Inactive allopurinol 300 mg tablet RxNorm: 978600 1 Tablet(s) PO QD TAKE ONE TABLET BY MOUTH EVERY DAY 10/26/2014 11/20/2014 Inactive Bystolic 10 mg tablet RxNorm: 435543 1 Tablet(s) PO QAM TAKE ONE TABLET BY MOUTH EVERY MORNING 10/26/2014 11/20/2014 Inactive clonidine HCl 0.1 mg tablet RxNorm: 693049 1 Tablet(s) PO TID 09/2805/27/2019 Inactive replaces 0.2mg dose clonidine HCl 0.1 mg tablet RxNorm: 314377 1 Tablet(s) PO TID 09/2802/18/2015 Inactive replaces 0.2mg dose baclofen 20 mg tablet RxNorm: 243646 1 Tablet(s) PO TID as needed 1 11/01/2013 08/30/2014 Inactive Lipitor 10 mg tablet RxNorm: 980078 1 Tablet(s) PO QHS 08/31/2014 Inactive baclofen 20 mg tablet RxNorm: 992141 1 Tablet(s) PO TID as needed 1 11/01/2013 10/26/2014 Inactive triamterene 75 mg-hydrochlorothiazide 50 mg tablet RxNorm: 3 04635 1 Tablet(s) PO QD 08/31/2014 02/26/2015 Inactive Klor-Con 8 mEq tablet,extended release RxNorm: 416315 1 Tablet( s) PO BID 08/31/2014 11/20/2014 Inactive baclofen 20 mg tablet RxNorm: 007032 1 Tablet(s) PO TID as needed 1 09/30/2013 10/25/2014 Inactive baclofen 20 mg tablet RxNorm: 677551 1 Tablet(s) PO TID as needed 1 09/30/2013 08/31/2014 Inactive omeprazole 40 mg capsule,delayed release RxNorm: 057289 1 Capsu le(s) PO QD 07/21/2014 07/23/2015 Inactive Flonase 50 mcg/actuation nasal spray,suspension RxNorm: 8963 23 1 Odin NASAL BID 07/15/2014 04/09/2017 Inactive hydrocodone 10 mg-acetaminophen 325 mg tablet RxNorm: 184687 1-2 Tablet(s) QID as needed for pain TAKE ONE TO TWO TABLETS BY MOUTH FOUR TIMES A DAY . MUST LAST 30 DAYS 06/30/2014 07/27/2014 Inactive (Response to an electronic controlled substance refill request - RxReferenceNumber: [id number]) baclofen 20 mg tablet RxNorm: 499973 1 Tablet(s) PO TID as needed 1 07/31/2014 Inactive Singulair 10 mg tablet RxNorm: 202632 1 Tablet(s) PO QD TAKE ONE TABLET BY MOUTH EVERY DAY 05/25/2014 11/20/2014 Inactive Bystolic 10 mg tablet RxNorm: 282841 TAKE ONE TABLET BY MOUTH E VERY MORNING 05/25/2014 09/21/2014 Inactive allopurinol 300 mg tablet RxNorm: 509291 1 Tablet(s) PO QD TAKE ONE TABLET BY MOUTH EVERY DAY 05/25/2014 10/21/2014 Inactive baclofen 20 mg tablet RxNorm: 329111 1 Tablet(s) PO TID as needed 0 05/25/2014 06/29/2014 Inactive allopurinol 300 mg tablet RxNorm: 173809 TAKE ONE TABLET BY LOPEZ TH EVERY DAY 05/25/2014 09/21/2014 Inactive Singulair 10 mg tablet RxNorm: 193173 1 Tablet(s) PO QD TAKE ONE TABLET BY MOUTH EVERY DAY 05/25/2014 05/24/2014 Inactive Bystolic 10 mg tablet RxNorm: 698373 1 Tablet(s) PO QAM TAKE ONE TABLET BY MOUTH EVERY MORNING 05/25/2014 10/21/2014 Inactive metolazone 2.5 mg tablet RxNorm: 218309 1 Tablet(s) PO QD as ne eded for edema 05/18/2014 04/25/2015 Inactive Lasix 40 mg tablet RxNorm: 732751 1 Tablet(s) PO QAM s hould take potassium supplementation with this medication 05/14/2014 05/17/2014 Inactive hydrocodone 10 mg-acetaminophen 325 mg tablet RxNorm: 231463 1-2 Tablet(s) QID as needed for pain TAKE ONE TO TWO TABLETS BY MOUTH FOUR TIMES A DAY . MUST LAST 30 DAYS 05/07/2014 06/05/2014 Inactive (Response to an electronic controlled substance refill request - RxReferenceNumber: [id number]) alprazolam 0.5 mg tablet RxNorm: 561276 TAKE ONE TABLET BY MOUTH TWICE A DAY , MUST LAST 30 DAYS 05/07/2014 05/22/2016 Inactive (Response to a n electronic controlled substance refill request - RxReferenceNumber: [id number]) diclofenac sodium 75 mg tablet,delayed release RxNorm: 73158 6 1 Tablet(s) PO BID for pain 04/24/2014 07/20/2014 Inactive Celebrex 200 mg capsule RxNorm: 583970 TAKE ONE CAPSULE BY MOUT H EVERY DAY 04/24/2014 07/20/2014 Inactive alprazolam 0.5 mg tablet RxNorm: 602384 TAKE ONE TABLET BY MOUTH TWICE A DAY , MUST LAST 30 DAYS 03/24/2014 04/22/2014 Inactive (Response to a n electronic controlled substance refill request - RxReferenceNumber: [id number]) diclofenac sodium 75 mg tablet,delayed release RxNorm: 46086 6 1 Tablet(s) PO BID for pain 03/24/2014 04/24/2014 Inactive clonidine HCl 0.1 mg tablet RxNorm: 587821 1 Tablet(s) PO TID 03/2409/28/2014 Inactive replaces 0.2mg dose Klor-Con 8 mEq tablet,extended release RxNorm: 933472 1 Tablet( s) PO BID 02/26/2014 08/31/2014 Inactive diclofenac sodium 75 mg tablet,delayed release RxNorm: 07369 6 1 Tablet(s) PO BID for pain 02/25/2014 03/24/2014 Inactive hydrocodone 10 mg-acetaminophen 325 mg tablet RxNorm: 260022 1-2 Tablet(s) QID as needed for pain TAKE ONE TO TWO TABLETS BY MOUTH FOUR TIMES A DAY . MUST LAST 30 DAYS 02/25/2014 03/26/2014 Inactive (Response to an electronic controlled substance refill request - RxReferenceNumber: [id number]) alprazolam 0.5 mg tablet RxNorm: 671166 Tablet(s) PO BI D as needed for anxiety TAKE ONE TABLET BY MOUTH TWICE A DAY , MUST LAST 30 DAYS 02/25/2014 Inactive (Response to an electronic controlled [place] bstance refill request - RxReferenceNumber: [id number]) [AttnRPh: Saving apply/adjudicate RxGRP:SG20 RxBIN:[id number] RxPCN: ID#:[id number]] alprazolam 0.5 mg tablet RxNorm: 315054 Tablet(s) TAKE ONE TABLET BY MOUTH TWICE A DAY , MUST LAST 30 DAYS 01/27/2014 02/24/2014 Inactive (Respo nse to an electronic controlled substance refill request - RxReferenceNumber: [id number]) [AttnRPh: Saving apply/adjudicate RxGRP:SG20 RxBIN:[id number] RxPCN: ID#:[id number]] hydrocodone 10 mg-acetaminophen 325 mg tablet RxNorm: 639313 1-2 Tablet(s) QID as needed for pain TAKE ONE TO TWO TABLETS BY MOUTH FOUR TIMES A DAY . MUST LAST 30 DAYS 01/27/2014 02/24/2014 Inactive (Response to an electronic controlled substance refill request - RxReferenceNumber: [id number]) alprazolam 0.5 mg tablet RxNorm: 805043 TAKE ONE TABLET BY MOUTH TWICE A DAY , MUST LAST 30 DAYS 01/27/2014 01/26/2014 Inactive (Response to a n electronic controlled substance refill request - RxReferenceNumber: [id number]) Premarin 1.25 mg tablet RxNorm: 853140 1-2 Tablet(s) PO QD 01/28/20 14 07/25/2014 Inactive alprazolam 0.5 mg tablet RxNorm: 517205 TAKE ONE TABLET BY MOUTH TWICE A DAY , MUST LAST 30 DAYS 01/27/2014 01/27/2014 Inactive (Response to a n electronic controlled substance refill request - RxReferenceNumber: [id number]) hydrocodone 10 mg-acetaminophen 325 mg tablet RxNorm: 104915 TAKE ONE TO TWO TABLETS BY MOUTH FOUR TIMES A DAY . MUST LAST 30 DAYS 01/27/20142013 Inactive (Response to an electronic controlled [place] bstance refill request - RxReferenceNumber: [id number]) Celebrex 200 mg capsule RxNorm: 179756 1 Capsule(s) PO QD TAKE ONE CAPSULE BY MOUTH EVERY DAY 12/29/2013 04/27/2014 Inactive hydrocodone 10 mg-acetaminophen 325 mg tablet RxNorm: 672834 1-2 Tablet(s) PO QID as needed for severe pain 12/29/2013 01/27/2014 Inactive allopurinol 300 mg tablet RxNorm: 637778 1 Tablet(s) PO QD TAKE ONE TABLET BY MOUTH EVERY DAY 12/29/2013 05/24/2014 Inactive alprazolam 0.5 mg tablet RxNorm: 238912 TAKE ONE TABLET BY MOUTH TWICE A DAY , MUST LAST 30 DAYS 12/29/2013 01/27/2014 Inactive (Response to a n electronic controlled substance refill request - RxReferenceNumber: [id number]) Celebrex 200 mg capsule RxNorm: 657748 1 Capsule(s) PO QD TAKE ONE CAPSULE BY MOUTH EVERY DAY 12/29/2013 12/29/2013 Inactive Bystolic 10 mg tablet RxNorm: 403161 1 Tablet(s) PO QAM TAKE ONE TABLET BY MOUTH EVERY MORNING 12/29/2013 05/24/2014 Inactive Bystolic 10 mg tablet RxNorm: 836382 1 Tablet(s) PO QAM TAKE ONE TABLET BY MOUTH EVERY MORNING 12/29/2013 12/29/2013 Inactive Singulair 10 mg tablet RxNorm: 327373 1 Tablet(s) PO QD TAKE ONE TABLET BY MOUTH EVERY DAY 12/29/2013 05/25/2014 Inactive hydrocodone 10 mg-acetaminophen 325 mg tablet RxNorm: 092689 TAKE ONE TO TWO TABLETS BY MOUTH FOUR TIMES A DAY . MUST LAST 30 DAYS 12/29/20132013 Inactive (Response to an electronic controlled [place] bstance refill request - RxReferenceNumber: [id number]) Trazadone 75mg Tablet RxNorm: 1 Tablet(s) PO QHS as needed 03/23/2014 Inactive Trazadone 75mg Tablet RxNorm: 1 Tablet(s) PO QHS 12/24/20132014 Inactive Soma 350 mg tablet RxNorm: 602975 Tablet(s) PO TAKE ON E TABLET BY MOUTH THREE TIMES A DAY NEEDED FOR MUSCLE SPASMS. THIS MUST LAST 30 DAYS BETWEEN REFILLS. 12/10/2013 12/22/2013 Inactive (Appended: Cont rolled substance eRx refill - RxReferenceNumber: [id number]) diclofenac sodium 75 mg tablet,delayed release RxNorm: 11568 6 1 Tablet(s) PO BID for pain 12/10/2013 02/24/2014 Inactive allopurinol 300 mg tablet RxNorm: 008863 1 Tablet(s) PO QD 11/20/19 14 12/29/2013 Inactive alprazolam 0.5 mg tablet RxNorm: 548786 2 Tablet(s) PO BID 11/13/19 14 12/29/2013 Inactive prn clonidine 0.1 mg tablet RxNorm: 169657 1 Tablet(s) PO TID 11/12/2013 02/09/2014 Inactive replaces 0.2mg dose Klor-Con M20 mEq tablet,extended release RxNorm: 585975 2 Tablet(s) PO BID to use with lasix 11/12/2013 05/10/2014 Inactive Singulair 10 mg tablet RxNorm: 299490 1 Tablet(s) PO QD 11/12/2013 Inactive hydrocodone 10 mg-acetaminophen 325 mg tablet RxNorm: 489024 1-2 Tablet(s) PO QID as needed for severe pain 11/12/2013 12/28/2013 Inactive Bystolic 10 mg tablet RxNorm: 514618 1 Tablet(s) PO QAM 11/12/2013 Inactive Soma 350 mg tablet RxNorm: 474009 Tablet(s) PO TAKE ON E TABLET BY MOUTH THREE TIMES A DAY NEEDED FOR MUSCLE SPASMS. THIS MUST LAST 30 DAYS BETWEEN REFILLS. 10/13/2013 12/10/2013 Inactive (Appended: Cont rolled substance eRx refill - RxReferenceNumber: [id number]) hydrocodone 10 mg-acetaminophen 325 mg tablet RxNorm: 143697 1-2 Tablet(s) PO QID as needed for severe pain 10/03/2013 11/11/2013 Inactive diclofenac sodium 75 mg tablet,delayed release RxNorm: 93496 8 1 Tablet(s) PO BID for pain 09/11/2013 12/10/2013 Inactive alprazolam 0.5 mg tablet RxNorm: 183811 1 Tablet(s) PO BID May refill on 04/26/13 09/01/2013 10/30/2013 Inactive prn hydrocodone 10 mg-acetaminophen 325 mg tablet RxNorm: 985681 1-2 Tablet(s) PO QID as needed for severe pain 09/01/2013 10/02/2013 Inactive triamterene 75 mg-hydrochlorothiazide 50 mg tablet RxNorm: 3 18677 1 Tablet(s) PO QD 08/04/2013 08/31/2014 Inactive cyclobenzaprine 10 mg tablet RxNorm: 139124 1 Tablet(s) PO TID prn spasm 08/04/2013 08/13/2013 Inactive clonidine 0.1 mg tablet RxNorm: 847945 1 Tablet(s) PO TID 08/04/2013 11/11/2013 Inactive replaces 0.2mg dose cyclobenzaprine 10 mg tablet RxNorm: 322252 1 Tablet(s) PO TID prn spasm 07/23/2013 08/01/2013 Inactive hydrocodone 10 mg-acetaminophen 325 mg tablet RxNorm: 013200 2 1-2 Tablet(s) PO QID as needed for severe pain 06/09/2013 08/07/2013 Inactive Singulair 10 mg tablet RxNorm: 426153 1 Tablet(s) PO QD 05/29/2013 Inactive Klor-Con 8 mEq tablet,extended release RxNorm: 420790 1 Tablet( s) PO BID 05/29/2013 02/26/2014 Inactive allopurinol 300 mg tablet RxNorm: 109899 1 Tablet(s) PO QD 05/29/20 13 11/19/2013 Inactive Bystolic 10 mg tablet RxNorm: 100580 1 Tablet(s) PO QAM take one daily in the morning. 05/29/2013 11/11/2013 Inactive scopolamine 1.5 mg 72 hr Transderm Patch RxNorm: 336851 Application TD Q72H for motion sickness 05/26/2013 07/22/2013 Inactive Soma 350 mg tablet RxNorm: 472418 1 Tablet(s) PO TID as needed for spasm 05/19/2013 10/13/2013 Inactive diclofenac sodium 75 mg tablet,delayed release RxNorm: 49848 8 1 Tablet(s) PO BID for pain 05/14/2013 07/22/2013 Inactive allopurinol 300 mg tablet RxNorm: 553877 1 Tablet(s) PO QD 04/25/20 13 05/28/2013 Inactive alprazolam 0.5 mg tablet RxNorm: 860516 1 Tablet(s) PO BID May refill on 04/26/13 04/25/2013 06/23/2013 Inactive prn Celebrex 200 mg capsule RxNorm: 771918 1 Capsule(s) PO QD 04/16/2013 12/29/2013 Inactive alprazolam 0.5 mg tablet RxNorm: 722362 1 Tablet(s) PO BID May refill on 04/26/13 04/16/2013 04/24/2013 Inactive prn Soma 350 mg tablet RxNorm: 946306 1 Tablet(s) PO TID as needed for spasm 04/16/2013 No Stop Date Active Lasix 40 mg tablet RxNorm: 682977 1 Tablet(s) PO QAM s hould take potassium supplementation with this medication 04/16/2013 06/14/2013 Inactive clonidine 0.1 mg tablet RxNorm: 926363 1 Tablet(s) PO TID 04/16/2013 08/03/2013 Inactive replaces 0.2mg dose prednisone 20 mg tablet RxNorm: 219278 1 Tablet(s) PO BID 04/16/2013 04/20/2013 Inactive diclofenac sodium 75 mg tablet,delayed release RxNorm: 99369 8 1 Tablet(s) PO BID for pain 04/14/2013 05/13/2013 Inactive hydrocodone 10 mg-acetaminophen 325 mg tablet RxNorm: 847855 2 1-2 Tablet(s) PO QID as needed for severe pain 04/14/2013 No Stop Date Active Lasix 40 mg tablet RxNorm: 289987 1 Tablet(s) PO QAM s hould take potassium supplementation with this medication 03/31/2013 04/15/2013 Inactive Celebrex 200 mg capsule RxNorm: 117292 1 Capsule(s) PO QD 03/31/2013 04/15/2013 Inactive alprazolam 0.5 mg tablet RxNorm: 192733 1 Tablet(s) PO BID 03/28/20 13 04/15/2013 Inactive prn hydrocodone 10 mg-acetaminophen 325 mg tablet RxNorm: 556800 2 1-2 Tablet(s) PO QID as needed for severe pain 03/10/2013 No Stop Date Active metformin ER 500 mg 24 hr tablet,extended release RxNorm: 86 1018 1 Tablet(s) PO QD 03/06/2013 07/22/2013 Inactive clindamycin 300 mg capsule RxNorm: 767301 2 Capsule(s) PO TID 03/0503/14/2013 Inactive Zaroxolyn 2.5 mg tablet RxNorm: 381890 1 Tablet(s) PO QAM 03/05/2013 05/19/2015 Inactive amlodipine 10 mg tablet RxNorm: 156639 1 Tablet(s) PO QD 03/03/2013 0 05/25/2013 Inactive Norvasc 10 mg tablet RxNorm: 860467 1 Tablet(s) PO QD 02/28/201307/11 Inactive Celebrex 200 mg capsule RxNorm: 885309 1 Capsule(s) PO QD 02/28/2013 03/30/2013 Inactive diclofenac sodium 75 mg tablet,delayed release RxNorm: 80308 8 1 Tablet(s) PO BID for pain 02/14/2013 03/15/2013 Inactive Soma 350 mg tablet RxNorm: 281525 1 Tablet(s) PO TID as needed for spasm 02/14/2013 No Stop Date Active hydrocodone 10 mg-acetaminophen 325 mg tablet RxNorm: 343159 2 1-2 Tablet(s) PO QID as needed for severe pain 02/14/2013 No Stop Date Active Norvasc 10 mg tablet RxNorm: 564695 1 Tablet(s) PO QD 02/10/201302/09 Inactive Celebrex 200 mg capsule RxNorm: 841141 1 Capsule(s) PO QD 01/27/2013 01/26/2013 Inactive Premarin 1.25 mg tablet RxNorm: 971458 1-2 Tablet(s) PO QD 01/28/20 13 06/25/2013 Inactive alprazolam 0.5 mg tablet RxNorm: 764718 1 Tablet(s) PO BID 01/28/20 13 02/25/2013 Inactive prn amlodipine 5 mg tablet RxNorm: 977119 1 Tablet(s) PO QD 01/27/2013 Inactive Celebrex 200 mg capsule RxNorm: 723481 1 Capsule(s) PO QD 01/27/2013 02/27/2013 Inactive gabapentin 600 mg tablet RxNorm: 554327 1 Tablet(s) PO QHS 01/16/20 13 07/22/2013 Inactive Soma 350 mg tablet RxNorm: 426041 1 Tablet(s) PO TID as needed for spasm 01/15/2013 No Stop Date Active hydrocodone 10 mg-acetaminophen 325 mg tablet RxNorm: 501277 2 1-2 Tablet(s) PO QID as needed for severe pain 01/15/2013 No Stop Date Active Soma 350 mg tablet RxNorm: 060223 1 Tablet(s) PO TID as needed for spasm 01/13/2013 No Stop Date Active alprazolam 0.5 mg tablet RxNorm: 118395 1 Tablet(s) PO BID 12/31/19 13 01/26/2013 Inactive prn diclofenac sodium 75 mg tablet,delayed release RxNorm: 28590 8 1 Tablet(s) PO BID for pain 12/09/2012 01/07/2013 Inactive gabapentin 600 mg tablet RxNorm: 059954 1 Tablet(s) PO QHS 12/10/19 13 01/07/2013 Inactive hydrocodone 10 mg-acetaminophen 325 mg tablet RxNorm: 274489 2 1-2 Tablet(s) PO QID as needed for severe pain 12/02/2012 No Stop Date Active Levaquin 750 mg tablet RxNorm: 659259 1 Tablet(s) PO QD 11/21/2012 Inactive Singulair 10 mg tablet RxNorm: 777244 1 Tablet(s) PO QD 11/11/2012 Inactive clonidine 0.2 mg tablet RxNorm: 233088 1 Tablet(s) PO TID 11/11/2012 04/15/2013 Inactive alprazolam 0.5 mg tablet RxNorm: 147582 1 Tablet(s) PO BID 11/12/19 13 12/10/2012 Inactive prn Klor-Con 8 mEq tablet,extended release RxNorm: 695683 1 Tablet( s) PO BID 11/11/2012 03/04/2013 Inactive hydrocodone 10 mg-acetaminophen 325 mg tablet RxNorm: 463059 2 1-2 Tablet(s) PO QID as needed for severe pain 11/06/2012 No Stop Date Active alprazolam 0.5 mg tablet RxNorm: 305788 1 Tablet(s) PO BID 10/15/19 13 11/10/2012 Inactive prn hydrocodone-acetaminophen 10 mg-325 mg tablet RxNorm: 915831 2 1-2 Tablet(s) PO QID as needed for severe pain 10/10/2012 10/09/2012 Inactive allopurinol 300 mg tablet RxNorm: 354858 1 Tablet(s) PO QD 09/20/19 13 12/18/2012 Inactive alprazolam 0.5 mg tablet RxNorm: 734079 1 Tablet(s) PO BID 09/17/19 13 10/14/2012 Inactive prn hydrocodone-acetaminophen 10 mg-325 mg tablet RxNorm: 390151 2 1-2 Tablet(s) PO QID as needed for severe pain 08/22/2012 08/21/2012 Inactive Norvasc 10 mg tablet RxNorm: 306807 1 Tablet(s) PO QD 08/12/201201/10 Inactive Premarin 1.25 mg tablet RxNorm: 466506 1-2 Tablet(s) PO QD 07/30/20 12 12/26/2012 Inactive alprazolam 0.5 mg tablet RxNorm: 219719 1 Tablet(s) PO BID 07/29/20 12 08/27/2012 Inactive prn Klor-Con 8 mEq tablet,extended release RxNorm: 562729 1 Tablet( s) PO BID 07/29/2012 11/10/2012 Inactive hydrocodone-acetaminophen 10 mg-325 mg tablet RxNorm: 760492 2 1-2 Tablet(s) PO QID as needed for severe pain 07/29/2012 No Stop Date Active Premarin 1.25 mg tablet RxNorm: 653734 1-2 Tablet(s) PO QD 07/29/20 12 07/29/2012 Inactive clonidine 0.2 mg tablet RxNorm: 327498 1 Tablet(s) PO TID 07/29/2012 10/28/2012 Inactive ketorolac 10 mg tablet RxNorm: 661295 1 Tablet(s) PO QID prn he adache 07/18/2012 No Stop Date Active hydrocodone-acetaminophen 10 mg-325 mg tablet RxNorm: 359619 2 1-2 Tablet(s) PO QID as needed for severe pain 07/03/2012 No Stop Date Active amlodipine 5 mg tablet RxNorm: 369129 1 Tablet(s) PO QD 07/02/2012 Inactive allopurinol 300 mg tablet RxNorm: 589852 1 Tablet(s) PO QD 07/02/20 12 09/19/2012 Inactive Celebrex 200 mg capsule RxNorm: 803116 1 Capsule(s) PO QD for j oint pain 06/26/2012 10/23/2012 Inactive diclofenac sodium 75 mg tablet,delayed release RxNorm: 91785 8 1 Tablet(s) PO BID for pain 06/19/2012 09/16/2012 Inactive hydrocodone-acetaminophen 10 mg-325 mg tablet RxNorm: 032867 2 1-2 Tablet(s) PO QID as needed for severe pain 06/10/2012 No Stop Date Active alprazolam 0.5 mg tablet RxNorm: 221872 1 Tablet(s) PO BID 06/03/20 12 07/02/2012 Inactive prn ketorolac 10 mg tablet RxNorm: 891806 1 Tablet(s) PO Q8H 05/27/2012 0 01/21/2019 Inactive as needed for headache hydrocodone-acetaminophen 10 mg-325 mg tablet RxNorm: 476877 2 1-2 Tablet(s) PO QID as needed for severe pain 05/15/2012 No Stop Date Active allopurinol 300 mg tablet RxNorm: 122159 1 Tablet(s) PO QD 05/14/20 12 06/12/2012 Inactive allopurinol 300 mg tablet RxNorm: 395451 1 Tablet(s) PO QD 05/14/20 12 05/13/2012 Inactive amlodipine 5 mg tablet RxNorm: 301089 1 Tablet(s) PO QD 05/01/2012 Inactive amlodipine 5 mg Tab RxNorm: 542473 1 Tablet(s) PO QD 05/01/201204/30 Inactive Celebrex 200 mg capsule RxNorm: 646281 1 Capsule(s) PO QD for j oint pain 05/01/2012 06/25/2012 Inactive Singulair 10 mg tablet RxNorm: 913097 1 Tablet(s) PO QD 05/01/2012 Inactive alprazolam 0.5 mg tablet RxNorm: 372520 1 Tablet(s) PO BID 05/01/20 12 05/30/2012 Inactive prn Celebrex 200 mg Cap RxNorm: 242914 1 Capsule(s) PO QD for joint radu n 05/01/2012 04/30/2012 Inactive hydrocodone-acetaminophen 10 mg-325 mg tablet RxNorm: 671411 2 1-2 Tablet(s) PO QID as needed for severe pain 04/19/2012 No Stop Date Active Lasix 40 mg tablet RxNorm: 641572 1 Tablet(s) PO QAM s hould take potassium supplementation with this medication 04/05/2012 06/03/2012 Inactive alprazolam 0.5 mg Tab RxNorm: 065620 1 Tablet(s) PO BID 04/05/2012 Inactive prn hydrocodone-acetaminophen 10 mg-325 mg Tab RxNorm: 1957332 1-2 Tablet(s) PO QID as needed for severe pain 03/25/2012 03/24/2012 Inactive clonidine 0.2 mg Tab RxNorm: 956444 1 Tablet(s) PO TID 03/08/2012 Inactive alprazolam 0.5 mg Tab RxNorm: 461235 1 Tablet(s) PO BID 03/08/2012 Inactive prn Soma 350 mg tablet RxNorm: 247483 1 Tablet(s) PO TID for spasm 02/0903/18/2012 Inactive clonidine 0.2 mg tablet RxNorm: 654342 1 Tablet(s) PO TID 03/08/2012 07/28/2012 Inactive Celebrex 200 mg Cap RxNorm: 253808 1 Capsule(s) PO QD for joint radu n 03/01/2012 04/29/2012 Inactive amlodipine 5 mg Tab RxNorm: 740315 1 Tablet(s) PO QD 02/26/201202/24 Inactive amlodipine 5 mg Tab RxNorm: 796437 1 Tablet(s) PO QD 02/26/201204/25 Inactive Bactroban 2 % Ointment RxNorm: 258016 Application TOP QID to sores 02/23/2012 No Stop Date Active amlodipine 2.5 mg tablet RxNorm: 539350 1 Tablet(s) PO QHS 02/20/2002/25/2012 Inactive doxycycline hyclate 100 mg Cap RxNorm: 9471836 1 Capsule(s) PO BID 02/20/2012 02/29/2012 Inactive hydrocodone-acetaminophen 10 mg-325 mg Tab RxNorm: 6039993 1-2 T ablet(s) PO QID 02/08/2012 No Stop Date Active alprazolam 0.5 mg Tab RxNorm: 696826 1 Tablet(s) PO BID 02/08/2012 Inactive prn Singulair 10 mg Tab RxNorm: 573598 1 Tablet(s) PO QD 02/08/201204/30 Inactive Soma 350 mg Tab RxNorm: 959478 1 Tablet(s) PO TID for spasm 012 03/07/2012 Inactive Soma 350 mg Tab RxNorm: 271017 1 Tablet(s) PO TID for spasm 012 02/05/2012 Inactive diclofenac sodium 75 mg tablet,delayed release RxNorm: 66763 8 1 Tablet(s) PO BID for pain 02/01/2012 03/18/2012 Inactive Celebrex 200 mg Cap RxNorm: 432224 1 Capsule(s) PO QD for joint radu n 01/30/2012 02/28/2012 Inactive Lasix 40 mg Tab RxNorm: 278258 1 Tablet(s) PO QAM 01/24/2012 03/18/20 12 Inactive potassium chloride ER 20 mEq tablet,extended release(part/cr yst) RxNorm: 844226 2 Tablet(s) PO BID 01/24/2012 02/22/2012 Inactive alprazolam 0.5 mg Tab RxNorm: 041579 1 Tablet(s) PO BID 01/11/2012 Inactive prn hydrocodone-acetaminophen 10 mg-325 mg Tab RxNorm: 2527401 1-2 T ablet(s) PO QID 01/11/2012 No Stop Date Active Ambien 10 mg Tab RxNorm: 304497 1 Tablet(s) PO QHS 01/11/2012 012 Inactive Klor-Con 8 mEq Tab RxNorm: 475810 1 Tablet(s) PO BID 01/11/201201/22 Inactive diclofenac sodium 75 mg Tab, Delayed Release RxNorm: 870175 1 Tablet(s) PO BID for pain 01/10/2012 01/31/2012 Inactive Ambien 10 mg Tab RxNorm: 647323 1 Tablet(s) PO QHS 12/11/2011 012 Inactive alprazolam 0.5 mg Tab RxNorm: 773602 1 Tablet(s) PO BID 12/11/2011 Inactive prn hydrocodone 10 mg-acetaminophen 325 mg tablet RxNorm: 725535 1-2 Tablet(s) PO TID 11/28/2011 No Stop Date Active as needed for pa in - Previous quantity #240, will start dosing for #180 in April 2011 per Doctor Td. Ambien 10 mg Tab RxNorm: 056991 1 Tablet(s) PO QHS 11/09/2011 012 Inactive alprazolam 0.5 mg Tab RxNorm: 457910 1 Tablet(s) PO BID 11/09/2011 Inactive prn hydrocodone-acetaminophen 10 mg-325 mg Tab RxNorm: 1955406 1-2 T ablet(s) PO TID 11/06/2011 No Stop Date Active as needed for pain - Previous quantity #240, will start dosing for #180 in April 2011 per Doctor Td. Singulair 10 mg Tab RxNorm: 669418 1 Tablet(s) PO QD 10/13/201110/12 Inactive Singulair 10 mg Tab RxNorm: 733703 1 Tablet(s) PO QD 10/13/201102/06 Inactive hydrocodone-acetaminophen 10 mg-325 mg Tab RxNorm: 2951422 1-2 T ablet(s) PO TID 10/10/2011 10/09/2011 Inactive as needed for pain - Previous quantity #240, will start dosing for #180 in April 2011 per Doctor Td. hydrocodone-acetaminophen 10 mg-325 mg Tab RxNorm: 2954127 1-2 T ablet(s) PO TID 10/09/2011 No Stop Date Active as needed for pain - Previous quantity #240, will start dosing for #180 in April 2011 per Doctor Td. Klor-Con 8 mEq Tab RxNorm: 006182 1 Tablet(s) PO BID 10/02/201101/09 Inactive triamterene 75 mg-hydrochlorothiazide 50 mg tablet RxNorm: 3 96187 1 Tablet(s) PO QD 09/14/2011 03/06/2013 Inactive Ambien 10 mg Tab RxNorm: 089286 1 Tablet(s) PO QHS 09/14/2011 012 Inactive hydrocodone-acetaminophen 10 mg-325 mg Tab RxNorm: 2081177 1-2 T ablet(s) PO TID 09/14/2011 No Stop Date Active as needed for pain - Previous quantity #240, will start dosing for #180 in April 2011 per Doctor Td. alprazolam 0.5 mg Tab RxNorm: 887570 1 Tablet(s) PO BID 09/14/2011 Inactive prn Zithromax 500 mg Tab RxNorm: 646957 1 Tablet(s) PO QD 09/13/201109/10 Inactive prednisone 20 mg Tab RxNorm: 282017 1 Tablet(s) PO BID 08/31/2011 Inactive Ambien 10 mg Tab RxNorm: 804460 1 Tablet(s) PO QHS 08/17/2011 011 Inactive hydrocodone-acetaminophen 10 mg-325 mg Tab RxNorm: 9758422 1-2 T ablet(s) PO TID 08/17/2011 No Stop Date Active as needed for pain - Previous quantity #240, will start dosing for #180 in April 2011 per Doctor Td. clonidine 0.2 mg Tab RxNorm: 442399 1 Tablet(s) PO TID 08/17/201112/2011 Inactive Ambien 10 mg Tab RxNorm: 478766 1 Tablet(s) PO QHS 08/17/2011 019 Inactive alprazolam 0.5 mg Tab RxNorm: 655707 1 Tablet(s) PO BID 08/17/2011 Inactive prn hydrocodone-acetaminophen 10 mg-325 mg Tab RxNorm: 4261005 1-2 T ablet(s) PO TID 08/17/2011 08/16/2011 Inactive as needed for pain - Previous quantity #240, will start dosing for #180 in April 2011 per Doctor Td. Singulair 10 mg Tab RxNorm: 717725 1 Tablet(s) PO QD 08/17/201108/16 Inactive Klor-Con 8 mEq Tab RxNorm: 154297 1 Tablet(s) PO QD 08/17/20112011 Inactive alprazolam 0.5 mg Tab RxNorm: 201431 1 Tablet(s) PO BID 07/20/2011 Inactive prn Ambien 10 mg Tab RxNorm: 017776 1 Tablet(s) PO QHS 07/20/2011 012 Inactive Singulair 10 mg Tab RxNorm: 530331 1 Tablet(s) PO QD 07/20/201107/19 Inactive Premarin 1.25 mg tablet RxNorm: 164793 2 Tablet(s) PO QD 07/20/2011 0 01/21/2019 Inactive Premarin 1.25 mg tablet RxNorm: 912730 1-2 Tablet(s) PO QD 07/20/20 11 12/16/2011 Inactive Premarin 1.25 mg Tab RxNorm: 985595 1-2 Tablet(s) PO QD 07/06/2011 Inactive alprazolam 0.5 mg Tab RxNorm: 405813 1 Tablet(s) PO BID 06/22/2011 Inactive prn alprazolam 0.5 mg Tab RxNorm: 409812 1 Tablet(s) PO BID 06/22/2011 Inactive prn Premarin 1.25 mg Tab RxNorm: 735881 1 Tablet(s) PO QD m ay do 90 day fill if desired 06/22/2011 07/05/2011 Inactive hydrocodone-acetaminophen 10 mg-325 mg Tab RxNorm: 3154913 1-2 T ablet(s) PO TID 06/22/2011 No Stop Date Active as needed for pain - Previous quantity #240, will start dosing for #180 in April 2011 per Doctor Td. clonidine 0.2 mg Tab RxNorm: 489148 1 Tablet(s) PO TID 05/25/201103/2011 Inactive triamterene-hydrochlorothiazide 75 mg-50 mg Tab RxNorm: 3108 18 1 Tablet(s) PO QD 05/25/2011 09/13/2011 Inactive alprazolam 0.5 mg Tab RxNorm: 100158 1 Tablet(s) PO BID 05/25/2011 Inactive prn hydrocodone-acetaminophen 10 mg-325 mg Tab RxNorm: 1020986 1-2 T ablet(s) PO TID 05/25/2011 No Stop Date Active as needed for pain - Previous quantity #240, will start dosing for #180 in April 2011 per Doctor Td. Robaxin-750 750 mg Tab RxNorm: 101235 2 Tablet(s) PO QHS 05/22/2011 1 Inactive prn spasm hydrocodone-acetaminophen 10 mg-325 mg Tab RxNorm: 2521701 1-2 T ablet(s) PO TID 04/26/2011 No Stop Date Active as needed for pain - Previous quantity #240, will start dosing for #180 in April 2011 per Doctor Td. alprazolam 0.5 mg Tab RxNorm: 550315 1 Tablet(s) PO BID 04/25/2011 Inactive prn Klor-Con 8 mEq Tab RxNorm: 218766 1 Tablet(s) PO QD 03/30/20112010 Inactive Klor-Con 8 mEq Tab RxNorm: 580083 1 Tablet(s) PO QD 03/29/20112010 Inactive hydrocodone-acetaminophen 10 mg-325 mg Tab RxNorm: 6561019 1-2 T ablet(s) PO TID 03/20/2011 04/25/2011 Inactive as needed for pain - Previous quantity #240, will start dosing for #180 in April 2011 per Doctor Td. alprazolam 0.5 mg Tab RxNorm: 142626 1 Tablet(s) PO BID prn 011 03/30/2011 Inactive Ambien 10 mg Tab RxNorm: 775569 1 Tablet(s) PO QHS 03/01/2011 011 Inactive cyclobenzaprine 10 mg Tab RxNorm: 900102 1 Tablet(s) PO TID 011 03/18/2012 Inactive cyclobenzaprine 10 mg Tab RxNorm: 015218 1 Tablet(s) PO TID 011 01/08/2011 Inactive cyclobenzaprine 10 mg Tab RxNorm: 285941 1 Tablet(s) PO TID 011 12/20/2010 Inactive terbinafine 250 mg Tab RxNorm: 280456 1 Tablet(s) PO QD 12/12/2010 Inactive triamterene-hydrochlorothiazide 75 mg-50 mg Tab RxNorm: 3108 18 1 Tablet(s) PO QD 12/07/2010 06/04/2011 Inactive Klor-Con 8 8 mEq Tab RxNorm: 398367 1 Tablet(s) PO QD 12/07/201001/08 Inactive Premarin 1.25 mg Tab RxNorm: 604717 2 Tablet(s) PO QD 12/07/201001/08 Inactive clonidine 0.2 mg Tab RxNorm: 154073 1 Tablet(s) PO TID 12/07/2010 Inactive hydrocodone-acetaminophen 7.5 mg-650 mg Tab RxNorm: 339040 1 Ta blet(s) PO Q4H 12/05/2010 01/21/2019 Inactive hydrocodone-acetaminophen 7.5 mg-650 mg Tab RxNorm: 252272 1 Ta blet(s) PO Q4H 10/26/2010 11/14/2010 Inactive hydrocodone-acetaminophen 7.5 mg-650 mg Tab RxNorm: 083554 1 Ta blet(s) PO Q4H 10/13/2010 10/25/2010 Inactive hydrocodone-acetaminophen 7.5 mg-650 mg Tab RxNorm: 051646 1 Ta blet(s) PO Q4H 09/15/2010 09/12/2010 Inactive alprazolam 0.5 mg Tab RxNorm: 718679 1 Tablet(s) PO BID prn 011 09/12/2010 Inactive terbinafine 250 mg Tab RxNorm: 396937 1 Tablet(s) PO QD 09/05/2010 Inactive hydrocodone-acetaminophen 7.5 mg-650 mg Tab RxNorm: 869624 1 Ta blet(s) PO Q4H 08/29/2010 09/17/2010 Inactive alprazolam 0.5 mg Tab RxNorm: 265503 1 Tablet(s) PO BID prn 010 09/27/2010 Inactive alprazolam 0.5 mg Tab RxNorm: 031402 1 Tablet(s) PO BID prn 010 09/06/2010 Inactive Klor-Con 8 mEq Tab RxNorm: 626898 1 Tablet(s) PO QD 08/08/20102010 Inactive hydrocodone-acetaminophen 7.5 mg-650 mg Tab RxNorm: 968495 1 Ta blet(s) PO Q4H 08/08/2010 08/27/2010 Inactive Ambien 10 mg Tab RxNorm: 292647 1 Tablet(s) PO QHS 08/08/2010 Inactive clonidine 0.2 mg Tab RxNorm: 420482 1 Tablet(s) PO TID 08/08/2010 Inactive Premarin 1.25 mg Tab RxNorm: 167894 2 Tablet(s) PO QD 08/08/201009/12 Inactive Ambien 10 mg Tab RxNorm: 817393 1 Tablet(s) PO QHS 07/18/2010 Inactive alprazolam 0.5 mg Tab RxNorm: 485387 1 Tablet(s) PO BID prn 08/07/2010 Inactive hydrocodone-acetaminophen 7.5 mg-650 mg Tab RxNorm: 488349 1 Ta blet(s) PO Q4H 07/12/2010 07/31/2010 Inactive clonidine 0.2 mg Tab RxNorm: 616375 1 Tablet(s) PO TID 06/20/2010 Inactive terbinafine 250 mg Tab RxNorm: 168527 1 Tablet(s) PO QD 05/24/2010 Inactive Clonidine 0.2 mg Tab RxNorm: 070108 1 Tablet(s) PO TID 05/24/201006/2010 Inactive Ambien 10 mg Tab RxNorm: 233132 1 Tablet(s) PO QHS 05/24/2010 Inactive alprazolam 0.5 mg Tab RxNorm: 763517 1 Tablet(s) PO BID 05/24/2010 Inactive Klor-Con 8 mEq Tab RxNorm: 567341 1 Tablet(s) PO QD 05/24/20102009 Inactive alprazolam 0.5 mg Tab RxNorm: 628360 2 Tablet(s) PO QD prn 05/24/20 10 07/17/2010 Inactive triamterene-hydrochlorothiazide 75 mg-50 mg Tab RxNorm: 3108 18 1 Tablet(s) PO QD 05/24/2010 11/19/2010 Inactive Ambien 10 mg Tab RxNorm: 572115 1 Tablet(s) PO QHS 05/23/2010 010 Inactive Alprazolam 0.5 mg Tab RxNorm: 653135 2 Tablet(s) PO QD prn 05/23/2005/23/2010 Inactive Premarin 1.25 mg Tab RxNorm: 180925 2 Tablet(s) PO QD 05/19/201007/12 Inactive Hydrocodone-Acetaminophen 7.5 mg-650 mg Tab RxNorm: 304150 1 Ta blet(s) PO Q4H 05/19/2010 03/20/2011 Inactive Prednisone 20 mg Tab RxNorm: 657153 1 Tablet(s) PO BID 05/17/2010 Inactive Prednisone 20 mg Tab RxNorm: 105361 1 Tablet(s) PO BID 05/06/201001/2010 Inactive Premarin 1.25 mg Tab RxNorm: 682362 Tablet(s) PO 2 M-W-F, and 1 Hd-Uh-Hmo-Sun 05/05/2010 08/02/2010 Inactive Premarin 1.25 mg Tab RxNorm: 896579 Tablet(s) PO 2 M-W-F, and 1 Ve-Iv-Wby-Sun 05/04/2010 05/04/2010 Inactive Premarin 1.25 mg Tab RxNorm: 800163 Tablet(s) PO 2 M-W-F, and 1 Ka-Wr-Ywh-Sun 05/04/2010 05/03/2010 Inactive Prednisone 20 mg Tab RxNorm: 773106 1 Tablet(s) PO BID 04/27/2010 Inactive Alprazolam 0.5 mg Tab RxNorm: 322795 2 Tablet(s) PO QD prn 04/26/2005/22/2010 Inactive Clindamycin 300 mg Cap RxNorm: 785295 2 Capsule(s) PO TID 04/05/2010 04/18/2010 Inactive Terbinafine 250 mg Tab RxNorm: 954980 1 Tablet(s) PO QD 04/04/2010 Inactive Hydrocodone-Acetaminophen 7.5 mg-650 mg Tab RxNorm: 354874 1 Ta blet(s) PO Q4H 03/30/2010 04/18/2010 Inactive Avelox 400 mg Tab RxNorm: 819603 1 Tablet(s) PO QD 03/09/2010 010 Inactive Hydrocodone-Acetaminophen 7.5 mg-650 mg Tab RxNorm: 670587 1 Ta blet(s) PO Q4H 03/08/2010 03/27/2010 Inactive Alprazolam 0.5 mg Tab RxNorm: 118805 2 Tablet(s) PO QD prn 03/08/20 10 04/25/2010 Inactive Klor-Con 8 mEq Tab RxNorm: 860631 1 Tablet(s) PO QD when takes lasi x 03/07/2010 09/29/2019 Inactive Premarin 1.25 mg Tab RxNorm: 080807 1 Tablet(s) PO QD 03/03/201003/11 Inactive Alprazolam 0.5 mg Tab RxNorm: 579876 1 Tablet(s) PO BID PRN 010 No Stop Date Active triamterene-hydrochlorothiazide 75 mg-50 mg Tab RxNorm: 3108 18 1 Tablet(s) PO QD 02/09/2010 02/03/2011 Inactive Hydrocodone-Acetaminophen 10 mg-750 mg Tab RxNorm: 723287 1 Tablet(s) PO Q4H PRN 02/09/2010 03/20/2011 Inactive Clonidine 0.2 mg Tab RxNorm: 643205 1 Tablet(s) PO TID 01/13/201009/2009 Inactive Alprazolam 0.5 mg Tab RxNorm: 449057 1 Tablet(s) PO BID PRN 010 01/12/2010 Inactive Hydrocodone-Acetaminophen 10 mg-750 mg Tab RxNorm: 811627 1 Tablet(s) PO Q4H PRN 01/13/2010 01/12/2010 Inactive ANGELIQ 1 mg-0.5 mg Tab RxNorm: 1755311 1 Tablet(s) PO QD 12/27/2009 01/23/2010 Inactive Lasix 40 mg Tab RxNorm: 798850 1 Tablet(s) PO QAM 12/14/2009 06/11/20 10 Inactive Vitamin B12 1000mcg Tablet RxNorm: 1 Tablet(s) PO QD No Start Date Active cyclobenzaprine 10 mg tablet RxNorm: 441219 1 Tablet(s) PO TID as needed DO NOT USE WITH BACLOFEN No Start Date Active Vitamin D 5,000 unit Tab RxNorm: 1 Tablet(s) PO QD No Start Date Active vitamin E (dl, acetate) 400 unit Cap RxNorm: 096957 1 Capsule(s ) PO QD No Start Date Active Benadryl 25 mg Cap RxNorm: 0064723 Capsule(s) PO PRN No Start Date Inactive amitriptyline 100 mg tablet RxNorm: 502114 1 Tablet(s) PO QHS No St art Date 11/27/2016 Inactive Zithromax Z-Dustin 250 mg tablet RxNorm: 392306 Tablet(s) PO as di rected No Start Date 07/22/2013 Inactive Klor-Con 8 mEq tablet,extended release RxNorm: 052046 1 Tablet( s) PO BID No Start Date 07/28/2012 Inactive scopolamine 1.5 mg 72 hr Transderm Patch RxNorm: 330504 Application TD Q72H for motion sickness No Start Date 05/25/2013 Inactive Klonopin 1 mg tablet RxNorm: 558098 1-2 Tablet(s) PO QHS as nee ded for sleep No Start Date 06/20/2015 Inactive Klor-Con M20 mEq tablet,extended release RxNorm: 943055 2 Tablet(s) PO BID to use with lasix No Start Date 11/11/2013 Inactive Bystolic 5 mg tablet RxNorm: 178467 1 Tablet(s) PO QD No Start Date 1 Inactive Bystolic 10 mg tablet RxNorm: 037890 1 Tablet(s) PO BID No Start Da te 07/06/2015 Inactive Premarin 1.25 mg Tab RxNorm: 750106 Tablet(s) PO 2 -W-, and 1 Dq-Bh-Axh-Sun No Start Date 05/03/2010 Inactive baclofen 20 mg tablet RxNorm: 756527 1 Tablet(s) PO TID as needed for muscle spasm No Start Date 07/22/2015 Inactive hydrocodone-acetaminophen 7.5 mg-650 mg Tab RxNorm: 087741 1 Tablet(s) PO Q4H as needed for pain No Start Date 03/20/2011 Inactive albuterol sulfate 1.25 mg/3 mL Neb Solution RxNorm: 201666 1 Unit Dose INH Q4H 2boxes No Start Date 09/06/2015 Inactive Butrans 20 mcg/hour Transderm Patch RxNorm: 520135 1 TD WEEKLY apply to skin weekly after removing previous. No Start Date 07/22/2013 Inactive Medrol (Dustin) 4 mg tablets in a dose pack RxNorm: 643734 Tablet(s) PO As Directed No Start Date 07/30/2016 Inactive hydrocodone-acetaminophen 10 mg-325 mg Tab RxNorm: 9176473 1-2 Tablet(s) PO TID as needed for pain No Start Date 03/19/2011 Inactive Klonopin 1 mg tablet RxNorm: 100860 1 Tablet(s) PO QHS No Start Date 02/28/2016 Inactive honey topical RxNorm: topical No Start Date 06/16/2018 Inactive Clonidine 0.2 mg Tab RxNorm: 950670 1 Tablet(s) PO TID No Start Date 01/12/2010 Inactive ketorolac 10 mg tablet RxNorm: 439003 1 Tablet(s) PO Q8H No Start D ate 03/18/2012 Inactive as needed for headache Singulair 10 mg Tab RxNorm: 397013 1 Tablet(s) PO QD No Start Date Inactive Premarin 1.25 mg Tab RxNorm: 141589 1 Tablet(s) PO QD No Start Date 1 Inactive Flonase 50 mcg/Actuation Nasal Odin RxNorm: 5754525 1 Odin CECELIA AL BID No Start Date 03/18/2012 Inactive Terbinafine 250 mg Tab RxNorm: 906649 1 Tablet(s) PO QD No Start Da te 04/03/2010 Inactive Fexofenadine 180 mg Tab RxNorm: 8771135 1 Tablet(s) PO QD No Start Date 09/06/2015 Inactive baclofen 20 mg tablet RxNorm: 174226 1 Tablet(s) PO TID as needed N o Start Date 05/25/2014 Inactive Diovan 160 mg Tab RxNorm: 850387 1 Tablet(s) PO QD No Start Date 09/12 Inactive mupirocin 2 % topical ointment RxNorm: 662865 1 Application TOP QID No Start Date 04/25/2016 Inactive ZOFRAN ODT 4 mg Tab, Rapid Dissolve RxNorm: 214055 1 Tablet(s) PO Q4H No Start Date 03/18/2012 Inactive as needed for nausea and vomiting Alprazolam 0.5 mg Tab RxNorm: 805649 1 Tablet(s) PO BID PRN No Star t Date 01/12/2010 Inactive cyclobenzaprine 10 mg tablet RxNorm: 841343 1 Tablet(s) PO TID as needed for muscle spasm No Start Date 10/08/2017 Inactive Albuterol 0.083% Aerosol Solution RxNorm: 1 Appl ication INH Q4H Use one ampule every 4 hrs with nebulizer as needed for shortness of breath. No Start Date 10/09/2010 Inactive lorazepam 1 mg tablet RxNorm: 860275 1 1/2 Tablet(s) PO QHS No Star t Date 02/02/2016 Inactive Melatonin 3 mg Tab RxNorm: 812742 Tablet(s) PO PRN No Start Date 07/11 Inactive Medrol (Dustin) 4 mg Tabs in a Dose Pack RxNorm: 288978 Tablet(s) PO N o Start Date 11/28/2010 Inactive lorazepam 1 mg tablet RxNorm: 046453 1 Tablet(s) PO QHS as need ed for sleep No Start Date 01/30/2016 Inactive hydrocodone-acetaminophen 10 mg-325 mg Tab RxNorm: 0996417 1-2 Tablet(s) PO QID as needed for severe pain No Start Date 03/24/2012 Inactive celecoxib 200 mg capsule RxNorm: 081184 1 Capsule(s) PO BID No Star t Date 06/26/2019 Inactive amlodipine 5 mg-benazepril 20 mg capsule RxNorm: 073069 1 Capsu le(s) PO QD No Start Date 04/10/2017 Inactive Bystolic 20 mg tablet RxNorm: 608146 1/2 Tablet(s) PO QAM No Start Date 01/23/2016 Inactive Bystolic 20 mg tablet RxNorm: 197053 1 Tablet(s) PO QAM No Start Da te 04/25/2016 Inactive Ambien 10 mg Tab RxNorm: 933254 1 Tablet(s) PO QHS No Start Date 05/11 Inactive Klor-Con 8 mEq Tab RxNorm: 520744 1 Tablet(s) PO QD when takes lasix No Start Date 03/06/2010 Inactive aspirin 81 mg tablet RxNorm: 817754 1 Tablet(s) PO QD No Start Date 0 01/29/2018 Inactive hydrocodone-acetaminophen 10 mg-325 mg Tab RxNorm: 3357198 1-2 T ablet(s) PO QID No Start Date 01/10/2012 Inactive Bystolic 10 mg tablet RxNorm: 007317 1 Tablet(s) PO QAM take one daily in the morning. No Start Date 05/28/2013 Inactive nystatin 100,000 unit/mL Oral Susp RxNorm: 467651 5 Milliliter( s) PO QID No Start Date 03/18/2012 Inactive swish and spit scopolamine 1.5 mg 72 hr Transderm Patch RxNorm: 164505 1 Unit Dose TD Q72H for motion sickness No Start Date 12/23/2013 Inactive Hydrocodone-Acetaminophen 10 mg-750 mg Tab RxNorm: 175601 1 Tablet(s) PO Q4H PRN No Start Date 01/12/2010 Inactive Soma 350 mg tablet RxNorm: 903896 1 Tablet(s) PO TID as needed for spasm No Start Date 01/12/2013 Inactive baclofen 10 mg tablet RxNorm: 198833 1 Tablet(s) PO TID as needed for muscle spasm No Start Date 09/18/2019 Inactive Soma 350 mg Tab RxNorm: 795875 1 Tablet(s) PO TID for spasm No Star t Date 01/31/2012 Inactive Co Q-10 400 mg capsule RxNorm: 480057 1 Capsule(s) PO QD No Start D ate 01/21/2019 Inactive nystatin 100,000 unit/gram topical cream RxNorm: 385259 Applica tion TOP BID No Start Date 03/22/2015 Inactive Exforge 5 mg-160 mg Tab RxNorm: 251448 1 Tablet(s) PO QD No Start D ate 10/09/2010 Inactive Hydrocodone-Acetaminophen 7.5 mg-650 mg Tab RxNorm: 399419 1 Ta blet(s) PO Q4H No Start Date 03/07/2010 Inactive Robaxin-750 750 mg Tab RxNorm: 769921 1-2 Tablet(s) PO TID prn spasm No Start Date 05/21/2011 Inactive amlodipine 5 mg tablet RxNorm: 923993 1 Tablet(s) PO QHS No Start D ate 09/29/2015 Inactive oxycodone-acetaminophen 10 mg-325 mg tablet RxNorm: 6737591 1-2 Tablet(s) PO Q6H No Start Date 06/16/2018 Inactive Triamterene-Hydrochlorothiazide 75 mg-50 mg Tab RxNorm: 3108 18 1 Tablet(s) PO QD No Start Date 02/08/2010 Inactive Alprazolam 0.5 mg Tab RxNorm: 013186 2 Tablet(s) PO QD prn No Start Date 03/07/2010 Inactive Bystolic 20 mg tablet RxNorm: 064055 1 Tablet(s) PO QAM No Start Da te 08/17/2015 Inactive ketorolac 10 mg tablet RxNorm: 610534 1 Tablet(s) PO QID prn he adache No Start Date 07/17/2012 Inactive acyclovir 800 mg Tab RxNorm: 185974 1 Tablet(s) PO BID No Start Date 03/18/2012 Inactive duloxetine 60 mg capsule,delayed release RxNorm: 192815 1 Capsu le(s) PO QD No Start Date 09/29/2015 Inactive Norvasc 5 mg tablet RxNorm: 871232 1 Tablet(s) PO QHS No Start Date 1 10/18/2014 Inactive promethazine 25 mg tablet RxNorm: 608810 1 Tablet(s) PO Q8H use sparingly No Start Date 07/22/2013 Inactive alprazolam 0.5 mg tablet RxNorm: 864963 3 Tablet(s) PO QHS No Start Date 06/06/2015 Inactive Lunesta 3 mg tablet RxNorm: 438237 1 Tablet(s) PO QHS No Start Date 0 09/20/2017 Inactive hydrocodone-acetaminophen 10 mg-325 mg Tab RxNorm: 4578948 1-2 Tablet(s) PO TID as needed for pain No Start Date 12/10/2011 Inactive Coricidin HBP Cough & Cold 4 mg-30 mg Tab RxNorm: 5725621 Tablet (s) PO PRN No Start Date 10/09/2010 Inactive Bactroban 2 % Ointment RxNorm: 364291 Application TOP QID to so res No Start Date 02/22/2012 Inactive Flonase 50 mcg/actuation Nasal Odin RxNorm: 594863 2 [place]in [place] QHS No Start Date 03/03/2014 Inactive Medication Administered No Medication Administered data Immunizations Vaccine Codes Date Status Tetanus, Diptheria, Pertussis CVX: 115 02/27/2014 Results Observation Observation Code Item Item Code Result Date S ervice Location [facility] 15785 AST 15 U/L 2019 Unknown [facility] 75565 ALT 13 U/L 2019 Unknown [facility] 34326 BUN 12 mg/dL 2019 Unknown [facility] 31900 ALBUMIN 3.9 g/dL 2019 Unknown [facility] 97997 CHLORIDE 97 mmol/L 2019 Unknown [facility] 05427 Bili Total 0.4 mg/dL 09/29 Unknown COMPREHENSIVE METABOLIC 23821 ALK PHOS 130 U/L 2019 Unknown [facility] 75404 SODIUM 136 mmol/L 09/29 Unknown COMPREHENS[facility] METABOLIC 82534 CREATININE 0.92 mg/dL 09/11 Unknown [facility] 22865 CALCIUM 9.1 mg/dL 2019 Unknown [facility] 70239 POTASSIUM 4.4 mmol/L 09/29 Unknown [facility] MET[facility] 40365 Total Protein 6.2 g/dL Unknown [facility] 47471 Glucose 391 mg/dL 2019 Unknown [facility] MET[facility] 80298 Bicarbonate 30 mmol/L 09/11 Unknown COMPREHENSIVE METABOLIC 84784 AGAP 9 mmol/L 2019 Unknown MEAN GLUC 8400389 Calc Mean Gluc 332 mg/dL 09/29/2019 Unkn own COMPLETE BLOOD COUNT [id number] WBC 7.0 10e9/L 09/29/19 Unknown COMPLETE BLOOD COUNT [id number] RBC 4.69 10e12/L 2019 Unknown COMPLETE BLOOD COUNT 9040775 HEMOGLOBIN 14.6 g/dL 09/29/19 Unknown COMPLETE BLOOD COUNT 8906979 HEMATOCRIT 45.2 % 09/29/19 Unknown COMPLETE BLOOD COUNT [id number] MCV 96.4 fL 0 Unknown COMPLETE BLOOD COUNT 2386579 MCH 31.1 pg 0 Unknown COMPLETE BLOOD COUNT 8342018 MCHC 32.3 g/dL 0 Unknown COMPLETE BLOOD COUNT 2627313 PLATELET COUNT 209 10e9/L Unknown COMPLETE BLOOD COUNT 2190312 Mean Plt Volume 9.8 fL Unknown COMPLETE BLOOD COUNT 6641851 Neut Auto 48.1 % 0 Unknown COMPLETE BLOOD COUNT 2253288 Lymph Auto 36.5 % 09/29/19 20 Unknown COMPLETE BLOOD COUNT [id number] [place] Auto 8.6 % 0 Unknown COMPLETE BLOOD COUNT 5342538 RDW 13.4 % 0 Unknown COMPLETE BLOOD COUNT 8389459 Eos Auto 6.5 % 0 Unknown COMPLETE BLOOD COUNT 6855355 Baso Auto 0.3 % 0 Unknown COMPLETE BLOOD COUNT 4380123 Neutrophil Abs 3.37 10e9/L Unknown COMPLETE BLOOD COUNT 2575763 Lymphocyte Abs 2.56 10e9/L Unknown COMPLETE BLOOD COUNT [id number] Monocyte Abs 0.60 10e9/L 09/11 Unknown COMPLETE BLOOD COUNT 0166193 Eosinophil Abs 0.46 10e9/L Unknown COMPLETE BLOOD COUNT 1588165 RDW-SD 45.9 fL 0 Unknown COMPLETE BLOOD COUNT [id number] Basophil Abs 0.02 10e9/L 09/11 Unknown LIPID GROUP 10859 Cholesterol 248 mg/dL 09/29/2019 Unkno wn LIPID GROUP 24396 Triglyceride 898 mg/dL 09/29/2019 Unkn own LIPID GROUP 78628 HDL CHOLESTEROL 41 mg/dL 09/29/2019 U nknown LIPID GROUP 57769 Chol/HDL Ratio 6.05 ratio 09/29/2019 U nknown LIPID GROUP 71244 NON-HDL Chol 207 mg/dL 09/29/2019 Unkn own LIPID GROUP 03586 LDL Cholesterol N/A Trig >400 020 Unknown GLYCOSYLATED HEMOGLOBIN TEST 61787 Hgb A1c 85868-5 13.2 % 0 09/29/2019 Unknown FREE T4 12547 T4 Free 0.75 ng/dL 09/29/2019 Unknown GFR CALC 4501386 GFR Non Afr Amr >60 mL/min 09/29/2019 Un known GFR CALC 6076962 GFR Afr Amr >60 mL/min 09/29/2019 Unknow n THYROID STIMULATING HORMONE 79250 TSH 4.245 uIU/mL 09/29/2019 Unknown COMPLETE BLOOD COUNT 8296217 WBC 10.7 10e9/L 018 Unknown COMPLETE BLOOD COUNT 8742412 RBC 4.59 10e12/L 2017 Unknown COMPLETE BLOOD COUNT 3887642 HEMOGLOBIN 14.8 g/dL 12/11/19 18 Unknown COMPLETE BLOOD COUNT 9319150 HEMATOCRIT 44.9 % 12/11/19 18 Unknown COMPLETE BLOOD COUNT 6541998 MCV 97.8 fL 8 Unknown COMPLETE BLOOD COUNT 3289877 MCH 32.2 pg 8 Unknown COMPLETE BLOOD COUNT 8301174 MCHC 33.0 g/dL 8 Unknown COMPLETE BLOOD COUNT [id number] PLATELET COUNT 261 10e9/L 10/2017 Unknown COMPLETE BLOOD COUNT 5004585 Mean Plt Volume 9.5 fL 10/2017 Unknown COMPLETE BLOOD COUNT 2588869 Neut Auto 59.9 % 8 Unknown COMPLETE BLOOD COUNT 4587077 Lymph Auto 27.4 % 12/11/19 18 Unknown COMPLETE BLOOD COUNT 4966641 [place] Auto 8.2 % 8 Unknown COMPLETE BLOOD COUNT 5013243 RDW 13.3 % 8 Unknown COMPLETE BLOOD COUNT 7228309 Eos Auto 4.1 % 8 Unknown COMPLETE BLOOD COUNT 2536553 Baso Auto 0.4 % 8 Unknown COMPLETE BLOOD COUNT 3372505 Neutrophil Abs 6.41 10e9/L Unknown COMPLETE BLOOD COUNT 3157360 Lymphocyte Abs 2.93 10e9/L Unknown COMPLETE BLOOD COUNT 0433840 Monocyte Abs 0.88 10e9/L 10/2017 Unknown COMPLETE BLOOD COUNT [id number] Eosinophil Abs 0.44 10e9/L Unknown COMPLETE BLOOD COUNT 0515081 RDW-SD 46.2 fL 8 Unknown COMPLETE BLOOD COUNT 7972829 Basophil Abs 0.04 10e9/L 10/2017 Unknown THYROID STIMULATING HORMONE 68180 TSH 4.015 uIU/mL 12/10/2017 Unknown COMPREHENSIVE METABOLIC 62936 AST 25 U/L 2017 Unknown COMPREHENSIVE METABOLIC 18744 ALT 17 U/L 2017 Unknown COMPREHENSIVE METABOLIC 63904 BUN 19 mg/dL 2017 Unknown COMPREHENSIVE METABOLIC 89756 ALBUMIN 4.0 g/dL 2017 Unknown COMPREHENSIVE METABOLIC 31730 CHLORIDE 91 mmol/L 2017 Unknown COMPREHENSIVE METABOLIC 27329 Bili Total 0.5 mg/dL 12/10 Unknown COMPREHENSIVE METABOLIC 74243 ALK PHOS 75 U/L 2017 Unknown COMPREHENSIVE METABOLIC 02996 SODIUM 136 mmol/L 12/10 Unknown COMPREHENSIVE METABOLIC 23413 CREATININE 1.05 mg/dL 10/2017 Unknown COMPREHENSIVE METABOLIC 56341 CALCIUM 8.9 mg/dL 2017 Unknown COMPREHENSIVE METABOLIC 31934 POTASSIUM 3.4 mmol/L 12/10 Unknown COMPREHENSIVE METABOLIC 06880 Total Protein 6.5 g/dL Unknown COMPREHENSIVE METABOLIC 36847 Glucose 138 mg/dL 2017 Unknown COMPREHENSIVE METABOLIC 13533 Bicarbonate 35 mmol/L 10/2017 Unknown COMPREHENSIVE METABOLIC 35113 AGAP 10 mmol/L 2017 Unknown MEAN GLUC 3571144 Calc Mean Gluc 171 mg/dL 12/10/2017 Unkn own LIPID GROUP 54928 Cholesterol 204 mg/dL 12/10/2017 Unkno wn LIPID GROUP 24271 Triglyceride 411 mg/dL 12/10/2017 Unkn own LIPID GROUP 66888 HDL CHOLESTEROL 50 mg/dL 12/10/2017 U nknown LIPID GROUP 50829 Chol/HDL Ratio 4.08 ratio 12/10/2017 U nknown LIPID GROUP 87302 NON-HDL Chol 154 mg/dL 12/10/2017 Unkn own LIPID GROUP 79949 LDL Cholesterol N/A Trig >400 018 Unknown GLYCOSYLATED HEMOGLOBIN TEST 42801 Hgb A1c 58661-1 7.6 % 0 12/10/2017 Unknown FREE T4 41759 T4 Free 1.40 ng/dL 12/10/2017 Unknown GFR CALC 7196613 GFR Non Afr Amr 55 mL/min 12/10/2017 Unk nown GFR CALC 6201821 GFR Afr Amr >60 mL/min 12/10/2017 Unknow n GFR CALC 9631541 GFR Non Afr Amr 48 mL/min 06/28/2017 Unk nown GFR CALC 6551923 GFR Afr Amr 59 mL/min 06/28/2017 Unknown COMPREHENSIVE METABOLIC 26887 AST 32 U/L 2016 Unknown COMPREHENSIVE METABOLIC 96968 ALT 22 U/L 2016 Unknown COMPREHENSIVE METABOLIC 59770 BUN 23 mg/dL 2016 Unknown COMPREHENSIVE METABOLIC 00275 ALBUMIN 4.7 g/dL 2016 Unknown COMPREHENSIVE METABOLIC 91205 CHLORIDE 89 mmol/L 2016 Unknown COMPREHENSIVE METABOLIC 08460 Bili Total 0.5 mg/dL 06/28 Unknown COMPREHENSIVE METABOLIC 05426 ALK PHOS 90 U/L 2016 Unknown COMPREHENSIVE METABOLIC 10418 SODIUM 135 mmol/L 06/28 Unknown COMPREHENSIVE METABOLIC 09791 CREATININE 1.18 mg/dL 06/10 Unknown COMPREHENSIVE METABOLIC 14784 CALCIUM 9.7 mg/dL 2016 Unknown COMPREHENSIVE METABOLIC 78826 POTASSIUM 3.5 mmol/L 06/28 Unknown COMPREHENSIVE METABOLIC 38791 Total Protein 7.7 g/dL Unknown COMPREHENSIVE METABOLIC 80283 Glucose 129 mg/dL 2016 Unknown COMPREHENSIVE METABOLIC 09826 Bicarbonate 34 mmol/L 06/10 Unknown COMPREHENSIVE METABOLIC 33046 AGAP 12 mmol/L 2016 Unknown [facility] GROUP 39675 HDL TEST 64 MG/DL 08/27/2014 Unknown [facility] 26960 TRIG 222 MG/DL 08/27/2014 Unknown L[facility] GROUP 86923 TEST LDL 209 MG/DL 08/27/2014 Unknown [facility] GROUP 73896 CHOL 317 MG/DL 08/27/2014 Unknown [facility] GROUP 84999 RCHOL/HDL 4.95 RATIO 08/27/2014 Unknow n LIPID GROUP 95598 NON-HDL CH 253 MG/DL 08/27/2014 Unknow n GFR CALC 7578280 GFR AA >60 ML/MIN 08/27/2014 Unknown GFR CALC 1822112 GFR NON-AA >60 ML/MIN 08/27/2014 Unknown COMPLETE BLOOD COUNT 8971629 WBC 7.0 10e9/L 08/27/20 14 Unknown COMPLETE BLOOD COUNT 9996221 RBC 4.98 10e12/L 2013 Unknown COMPLETE BLOOD COUNT 2350207 HGB 15.6 g/dL 4 Unknown COMPLETE BLOOD COUNT 9919646 HCT DET 46.5 % 4 Unknown COMPLETE BLOOD COUNT 8959110 MCV 93.4 fL 4 Unknown COMPLETE BLOOD COUNT 4502856 MCH 31.3 pg 4 Unknown COMPLETE BLOOD COUNT 4912481 MCHC 33.5 g/dL 4 Unknown COMPLETE BLOOD COUNT 9885920 PLT 309 10e9/L 08/27/20 14 Unknown COMPLETE BLOOD COUNT 9873577 MPV 9.6 fL 4 Unknown COMPLETE BLOOD COUNT 2656036 CADEN % 57.2 % 4 Unknown COMPLETE BLOOD COUNT 5801938 LY % 33.2 % 4 Unknown COMPLETE BLOOD COUNT 1257980 MON % 7.3 % 4 Unknown COMPLETE BLOOD COUNT 2255543 EOS % 2.0 % 4 Unknown COMPLETE BLOOD COUNT 9956453 BASO % 0.3 % 4 Unknown COMPLETE BLOOD COUNT 0741788 RDW 13.7 % 4 Unknown COMPLETE BLOOD COUNT 3054159 ABS CADEN 4.00 10e9/L 014 Unknown COMPLETE BLOOD COUNT 3435397 ABS LYMPH 2.32 10e9/L 014 Unknown COMPLETE BLOOD COUNT [id number] ABS MONO 0.51 10e9/L 014 Unknown COMPLETE BLOOD COUNT [id number] ABS EOS 0.14 10e9/L 014 Unknown COMPLETE BLOOD COUNT 3297477 ABS BASO 0.02 10e9/L 014 Unknown COMPLETE BLOOD COUNT 8646150 RDW-SD 45.1 fL 4 Unknown COMPREHENSIVE METABOLIC 62469 AST 13 U/L 2013 Unknown COMPREHENSIVE METABOLIC 60957 ALT 11 IU/L 2013 Unknown COMPREHENSIVE METABOLIC 34159 BUN 23 MG/DL 2013 Unknown COMPREHENSIVE METABOLIC 21458 ALBUMIN 4.4 GM/DL 2013 Unknown COMPREHENSIVE METABOLIC 56995 CHLORIDE 99 MMOL/L 2013 Unknown COMPREHENSIVE METABOLIC 67808 BILI TOT 0.5 MG/DL 2013 Unknown COMPREHENSIVE METABOLIC 55125 ALK PHOS 56 U/L 2013 Unknown COMPREHENSIVE METABOLIC 27656 SODIUM 138 MMOL/L 08/27 Unknown COMPREHENSIVE METABOLIC 10062 CREATININE 0.95 MG/DL 08/10 Unknown COMPREHENSIVE METABOLIC 11941 CALCIUM 9.8 MG/DL 2013 Unknown COMPREHENSIVE METABOLIC 12655 POTASSIUM 3.5 MMOL/L 08/27 Unknown COMPREHENSIVE METABOLIC 17717 PROT TOT 6.8 GM/DL 2013 Unknown COMPREHENSIVE METABOLIC 80684 Glucose 90 MG/DL 2013 Unknown COMPREHENSIVE METABOLIC 16877 BICARB 34 MMOL/L 2013 Unknown COMPREHENSIVE METABOLIC 14438 ANION GAP 5 MEQ/L 2013 Unknown LIPASE 26528 LIPASE 11 IU/L 07/21/2014 Unknown AMYLASE 71802 AMYLASE 39 IU/L 07/21/2014 Unknown HEMOGLOBIN A1C (GLYCOSYLATED) 7987496 A1C [facility] 79014-2 6.2 % 03/05/2013 Unknown THYROID STIMULATING HORMONE 72136 TSH 6.986 uIU/ML 03/05/2013 Unknown COMPLETE BLOOD COUNT 7898977 WBC 12.7 10e9/L 013 Unknown COMPLETE BLOOD COUNT 0402209 RBC 4.53 10e12/L 2012 Unknown COMPLETE BLOOD COUNT 8019981 HGB 14.7 g/dL 3 Unknown COMPLETE BLOOD COUNT 6949436 HCT DET 43.1 % 3 Unknown COMPLETE BLOOD COUNT 7965194 MCV 95.1 fL 3 Unknown COMPLETE BLOOD COUNT 3087149 MCH 32.5 pg 3 Unknown COMPLETE BLOOD COUNT 8501550 MCHC 34.1 g/dL 3 Unknown COMPLETE BLOOD COUNT 4987523 PLT 346 10e9/L 03/05/20 13 Unknown COMPLETE BLOOD COUNT 4896415 MPV 9.5 fL 3 Unknown COMPLETE BLOOD COUNT 2049812 CADEN % 67.6 % 3 Unknown COMPLETE BLOOD COUNT 5796360 LY % 22.1 % 3 Unknown COMPLETE BLOOD COUNT 5526964 MON % 6.6 % 3 Unknown COMPLETE BLOOD COUNT 4463879 EOS % 3.3 % 3 Unknown COMPLETE BLOOD COUNT 0294848 BASO % 0.4 % 3 Unknown COMPLETE BLOOD COUNT 5658385 RDW 14.0 % 3 Unknown COMPLETE BLOOD COUNT 1587057 ABS CADEN 8.59 10e9/L 013 Unknown COMPLETE BLOOD COUNT 5448576 ABS LYMPH 2.81 10e9/L 013 Unknown COMPLETE BLOOD COUNT 2921906 ABS MONO 0.84 10e9/L 013 Unknown COMPLETE BLOOD COUNT 8150149 ABS EOS 0.42 10e9/L 013 Unknown COMPLETE BLOOD COUNT 6866502 ABS BASO 0.05 10e9/L 013 Unknown COMPLETE BLOOD COUNT 4779240 RDW-SD 46.0 fL 3 Unknown FREE T4 64487 FREE T4 1.14 NG/DL 03/05/2013 Unknown COMPREHENSIVE METABOLIC 57958 AST 17 U/L 2012 Unknown COMPREHENSIVE METABOLIC 79451 ALT 12 IU/L 2012 Unknown COMPREHENSIVE METABOLIC 01768 BUN 24 MG/DL 2012 Unknown COMPREHENSIVE METABOLIC 73084 ALBUMIN 4.2 GM/DL 2012 Unknown COMPREHENSIVE METABOLIC 70590 CHLORIDE 93 MMOL/L 2012 Unknown COMPREHENSIVE METABOLIC 92073 BILI TOT 0.5 MG/DL 2012 Unknown COMPREHENSIVE METABOLIC 25606 ALK PHOS 75 U/L 2012 Unknown COMPREHENSIVE METABOLIC 88878 SODIUM 141 MMOL/L 03/05 Unknown COMPREHENSIVE METABOLIC 55980 CREATININE 1.36 MG/DL 02/09 Unknown COMPREHENSIVE METABOLIC 82821 CALCIUM 9.2 MG/DL 2012 Unknown COMPREHENSIVE METABOLIC 16926 POTASSIUM 3.1 MMOL/L 03/05 Unknown COMPREHENSIVE METABOLIC 03751 PROT TOT 6.9 GM/DL 2012 Unknown COMPREHENSIVE METABOLIC 57350 Glucose 123 MG/DL 2012 Unknown COMPREHENSIVE METABOLIC 04847 BICARB 36 MMOL/L 2012 Unknown COMPREHENSIVE METABOLIC 61622 ANION GAP 12 MEQ/L 2012 Unknown GFR CALC 0937339 GFR AA 51.0L ML/MIN 03/05/2013 Unknow n GFR CALC 2065851 GFR NON-AA 42.0L ML/MIN 03/05/2013 Unkno wn COMPREHENSIVE METABOLIC 81762 AST 14 U/L 2012 Unknown COMPREHENSIVE METABOLIC 09647 ALT 11 IU/L 2012 Unknown COMPREHENSIVE METABOLIC 39893 BUN 16 MG/DL 2012 Unknown COMPREHENSIVE METABOLIC 44448 ALBUMIN 4.2 GM/DL 2012 Unknown COMPREHENSIVE METABOLIC 00939 CHLORIDE 98 MMOL/L 2012 Unknown COMPREHENSIVE METABOLIC 37439 BILI TOT 0.4 MG/DL 2012 Unknown COMPREHENSIVE METABOLIC 28711 ALK PHOS 77 U/L 2012 Unknown COMPREHENSIVE METABOLIC 61313 SODIUM 139 MMOL/L 09/25 Unknown COMPREHENSIVE METABOLIC 15308 CREATININE 0.86 MG/DL 09/10 Unknown COMPREHENSIVE METABOLIC 95755 CALCIUM 9.5 MG/DL 2012 Unknown COMPREHENSIVE METABOLIC 43237 POTASSIUM 3.8 MMOL/L 09/25 Unknown COMPREHENSIVE METABOLIC 35611 PROT TOT 6.8 GM/DL 2012 Unknown COMPREHENSIVE METABOLIC 52232 Glucose 91 MG/DL 2012 Unknown COMPREHENSIVE METABOLIC 45139 BICARB 32 MMOL/L 2012 Unknown COMPREHENSIVE METABOLIC 27286 ANION GAP 9 MEQ/L 2012 Unknown FREE T4 05784 FREE T4 0.98 NG/DL 09/25/2012 Unknown THYROID STIMULATING HORMONE 46631 TSH 1.736 uIU/ML 09/25/2012 Unknown C-REACTIVE PROTEIN (CRP) QUANT 56884 CRP 2.3 MG/DL 09/25/2012 Unknown COMPLETE BLOOD COUNT [id number] WBC 11.9 10e9/L 013 Unknown COMPLETE BLOOD COUNT 0981968 RBC 4.87 10e12/L 2012 Unknown COMPLETE BLOOD COUNT 1759326 HGB 15.1 g/dL 3 Unknown COMPLETE BLOOD COUNT 0437375 HCT DET 44.8 % 3 Unknown COMPLETE BLOOD COUNT 7501133 MCV 92.0 fL 3 Unknown COMPLETE BLOOD COUNT 3876368 MCH 31.0 pg 3 Unknown COMPLETE BLOOD COUNT 9551409 MCHC 33.7 g/dL 3 Unknown COMPLETE BLOOD COUNT 6496368 PLT 343 10e9/L 09/25/19 13 Unknown COMPLETE BLOOD COUNT 1323459 MPV 9.0 fL 3 Unknown COMPLETE BLOOD COUNT 5230638 CADEN % 68.2 % 3 Unknown COMPLETE BLOOD COUNT 9948374 LY % 22.4 % 3 Unknown COMPLETE BLOOD COUNT 4161286 MON % 6.4 % 3 Unknown COMPLETE BLOOD COUNT 5147699 EOS % 2.7 % 3 Unknown COMPLETE BLOOD COUNT 2245681 BASO % 0.3 % 3 Unknown COMPLETE BLOOD COUNT 1111362 RDW 13.8 % 3 Unknown COMPLETE BLOOD COUNT 5979935 ABS CADEN 8.12 10e9/L 013 Unknown COMPLETE BLOOD COUNT 4507927 ABS LYMPH 2.67 10e9/L 013 Unknown COMPLETE BLOOD COUNT 3975224 ABS MONO 0.76 10e9/L 013 Unknown COMPLETE BLOOD COUNT 9231730 ABS EOS 0.32 10e9/L 013 Unknown COMPLETE BLOOD COUNT 0767181 ABS BASO 0.04 10e9/L 013 Unknown COMPLETE BLOOD COUNT 5981905 RDW-SD 45.6 fL 3 Unknown GFR CALC 2039571 GFR AA >60 ML/MIN 09/25/2012 Unknown GFR CALC 2828483 GFR NON-AA >60 ML/MIN 09/25/2012 Unknown ERYTHROCYTE SEDIMENTATION RATE 17151 ESR 19 MM/HR 05/06/2012 Unknown VITAMIN B 12 FOLIC ACID 56098|42087 VIT B 12 922 PG/ML 04/11 Unknown VITAMIN B 12 FOLIC ACID 15645|37714 FOLIC ACID 13.6 NG/ML Unknown URIC ACID 20230 URIC ACID 7.8 MG/DL 05/06/2012 Unknown COMPLETE BLOOD COUNT 63675 WBC 11.9 10e9/L 012 Unknown COMPLETE BLOOD COUNT 34491 RBC 5.30 10e12/L 2011 Unknown COMPLETE BLOOD COUNT 58339 HGB 16.6 g/dL 2 Unknown COMPLETE BLOOD COUNT 53522 HCT DET 47.2 % 2 Unknown COMPLETE BLOOD COUNT 70364 MCV 89.1 fL 2 Unknown COMPLETE BLOOD COUNT 36238 MCH 31.3 pg 2 Unknown COMPLETE BLOOD COUNT 30905 MCHC 35.2 g/dL 2 Unknown COMPLETE BLOOD COUNT 16830 PLT 362 10e9/L 05/06/20 12 Unknown COMPLETE BLOOD COUNT 21284 MPV 9.4 fL 2 Unknown COMPLETE BLOOD COUNT 26333 CADEN % 68.2 % 2 Unknown COMPLETE BLOOD COUNT 05961 LY % 22.0 % 2 Unknown COMPLETE BLOOD COUNT 33320 MON % 6.9 % 2 Unknown COMPLETE BLOOD COUNT 39882 EOS % 2.6 % 2 Unknown COMPLETE BLOOD COUNT 18607 BASO % 0.3 % 2 Unknown COMPLETE BLOOD COUNT 88783 RDW 12.8 % 2 Unknown COMPLETE BLOOD COUNT 76792 ABS CADEN 8.12 10e9/L 012 Unknown COMPLETE BLOOD COUNT 57960 ABS LYMPH 2.62 10e9/L 012 Unknown COMPLETE BLOOD COUNT 76851 ABS MONO 0.82 10e9/L 012 Unknown COMPLETE BLOOD COUNT 56562 ABS EOS 0.31 10e9/L 012 Unknown COMPLETE BLOOD COUNT 39603 ABS BASO 0.04 10e9/L 012 Unknown COMPLETE BLOOD COUNT 97399 RDW-SD 41.5 fL 2 Unknown GFR CALC 7363593 GFR AA >60 ML/MIN 05/06/2012 Unknown GFR CALC 5917460 GFR NON-AA 58.0L ML/MIN 05/06/2012 Unkno wn FREE T4 73818 FREE T4 1.15 NG/DL 05/06/2012 Unknown THYROID STIMULATING HORMONE 73464 TSH 1.568 uIU/ML 05/06/2012 Unknown COMPREHENSIVE METABOLIC 30729 AST 20 U/L 2011 Unknown COMPREHENSIVE METABOLIC 75513 ALT 12 IU/L 2011 Unknown COMPREHENSIVE METABOLIC 55554 BUN 20 MG/DL 2011 Unknown COMPREHENSIVE METABOLIC 29296 ALBUMIN 4.5 GM/DL 2011 Unknown COMPREHENSIVE METABOLIC 79360 CHLORIDE 91 MMOL/L 2011 Unknown COMPREHENSIVE METABOLIC 83107 BILI TOT 0.4 MG/DL 2011 Unknown COMPREHENSIVE METABOLIC 98330 ALK PHOS 73 U/L 2011 Unknown COMPREHENSIVE METABOLIC 38430 SODIUM 139 MMOL/L 05/06 Unknown COMPREHENSIVE METABOLIC 12436 CREATININE 1.02 MG/DL 04/11 Unknown COMPREHENSIVE METABOLIC 04165 CALCIUM 9.7 MG/DL 2011 Unknown COMPREHENSIVE METABOLIC 87257 POTASSIUM 3.1 MMOL/L 05/06 Unknown COMPREHENSIVE METABOLIC 71838 PROT TOT 7.3 GM/DL 2011 Unknown COMPREHENSIVE METABOLIC 97404 Glucose 118 MG/DL 2011 Unknown COMPREHENSIVE METABOLIC 94003 BICARB 33 MMOL/L 2011 Unknown COMPREHENSIVE METABOLIC 43721 ANION GAP 15 MEQ/L 2011 Unknown Procedures Procedure Codes Date ROUTINE VENIPUNCTURE CPT-4: 88549 09/29/2019 URINALYSIS NONAUTO W/O SCOPE CPT-4: 84678 09/29/2019 COMPREHEN METABOLIC PANEL CPT-4: 69677 09/29/2019 LIPID PANEL CPT-4: 18168 09/29/2019 A1C HPLC CPT-4: 04884 09/29/2019 ASSAY OF FREE THYROXINE CPT-4: 59201 09/29/2019 ASSAY THYROID STIM HORMONE CPT-4: 94526 09/29/2019 COMPLETE CBC W/AUTO DIFF WBC CPT-4: 82781 09/29/2019 URINALYSIS NONAUTO W/O SCOPE CPT-4: 62752 09/30/2018 MICROALBUMIN QUANTITATIVE CPT-4: 27495 09/30/2018 CEFTRIAXONE SODIUM INJECTION CPT-4: J0696 06/19/2018 THER/PROPH/DIAG INJ SC/IM CPT-4: 28339 06/19/2018 CEFTRIAXONE SODIUM INJECTION CPT-4: J0696 06/17/2018 THER/PROPH/DIAG INJ SC/IM CPT-4: 18670 06/17/2018 THER/PROPH/DIAG INJ SC/IM CPT-4: 77824 05/16/2018 KETOROLAC TROMETHAMINE INJ CPT-4: J1885 05/16/2018 ONDANSETRON HCL INJECTION CPT-4: J2405 05/16/2018 THER/PROPH/DIAG INJ SC/IM CPT-4: 28521 05/16/2018 ROUTINE VENIPUNCTURE CPT-4: 30924 03/20/2018 COMPREHEN METABOLIC PANEL CPT-4: 57447 03/20/2018 DEXAMETHASONE SODIUM PHOS CPT-4: J1100 02/11/2018 THER/PROPH/DIAG INJ SC/IM CPT-4: 73549 02/11/2018 TRIAMCINOLONE ACET INJ NOS CPT-4: J3301 02/11/2018 CEFTRIAXONE SODIUM INJECTION CPT-4: J0696 02/01/2018 THER/PROPH/DIAG INJ SC/IM CPT-4: 51115 02/01/2018 CEFTRIAXONE SODIUM INJECTION CPT-4: J0696 01/30/2018 THER/PROPH/DIAG INJ SC/IM CPT-4: 62794 01/30/2018 ROUTINE VENIPUNCTURE CPT-4: 49776 12/10/2017 ASSAY OF FREE THYROXINE CPT-4: 12330 12/10/2017 ASSAY THYROID STIM HORMONE CPT-4: 13754 12/10/2017 COMPREHEN METABOLIC PANEL CPT-4: 27216 12/10/2017 COMPLETE CBC W/AUTO DIFF WBC CPT-4: 45224 12/10/2017 LIPID PANEL CPT-4: 23436 12/10/2017 A1C HPLC CPT-4: 00680 12/10/2017 CEFTRIAXONE SODIUM INJECTION CPT-4: J0696 12/10/2017 THER/PROPH/DIAG INJ SC/IM CPT-4: 70234 12/10/2017 CEFTRIAXONE SODIUM INJECTION CPT-4: J0696 12/07/2017 THER/PROPH/DIAG INJ SC/IM CPT-4: 84107 12/07/2017 DEXAMETHASONE SODIUM PHOS CPT-4: J1100 12/07/2017 THER/PROPH/DIAG INJ SC/IM CPT-4: 32062 12/07/2017 CEFTRIAXONE SODIUM INJECTION CPT-4: J0696 10/08/2017 THER/PROPH/DIAG INJ SC/IM CPT-4: 77836 10/08/2017 CEFTRIAXONE SODIUM INJECTION CPT-4: J0696 09/21/2017 THER/PROPH/DIAG INJ SC/IM CPT-4: 48988 09/21/2017 CEFTRIAXONE SODIUM INJECTION CPT-4: J0696 09/20/2017 THER/PROPH/DIAG INJ SC/IM CPT-4: 73509 09/20/2017 REMOVAL OF NAIL PLATE CPT-4: 71228 08/29/2017 THER/PROPH/DIAG INJ SC/IM CPT-4: 80878 08/29/2017 TRIAMCINOLONE ACET INJ NOS CPT-4: J3301 08/29/2017 CEFTRIAXONE SODIUM INJECTION CPT-4: J0696 08/29/2017 THER/PROPH/DIAG INJ SC/IM CPT-4: 98454 08/29/2017 DESTRUCT PREMALG LESION (Cryosurgery) CPT-4: 65141 ROUTINE VENIPUNCTURE CPT-4: 43941 06/27/2017 ASSAY OF FREE THYROXINE CPT-4: 49675 06/27/2017 ASSAY THYROID STIM HORMONE CPT-4: 04105 06/27/2017 COMPREHEN METABOLIC PANEL CPT-4: 61997 06/27/2017 COMPLETE CBC W/AUTO DIFF WBC CPT-4: 28050 06/27/2017 EXC TR-EXT B9+REECE 0.5 CM< CPT-4: 55192 01/24/2017 THER/PROPH/DIAG INJ SC/IM CPT-4: 87512 08/02/2016 DEXAMETHASONE SODIUM PHOS CPT-4: J1100 08/02/2016 DESTRUCT PREMALG LESION (Cryosurgery) CPT-4: 83265 EXC TR-EXT B9+REECE 0.5 CM< CPT-4: 38488 08/01/2016 AEROBIC WOUND CULTURE & STN CPT-4: 95127 07/06/2016 CEFTRIAXONE SODIUM INJECTION CPT-4: J0696 05/25/2016 THER/PROPH/DIAG INJ SC/IM CPT-4: 71044 05/25/2016 THER/PROPH/DIAG INJ SC/IM CPT-4: 78776 04/26/2016 DEXAMETHASONE SODIUM PHOS CPT-4: J1100 04/26/2016 CEFTRIAXONE SODIUM INJECTION CPT-4: J0696 04/26/2016 THER/PROPH/DIAG INJ SC/IM CPT-4: 82138 04/26/2016 THER/PROPH/DIAG INJ SC/IM CPT-4: 86549 02/09/2016 TRIAMCINOLONE ACET INJ NOS CPT-4: J3301 02/09/2016 URINALYSIS NONAUTO W/O SCOPE CPT-4: 07643 01/24/2016 URINE CULTURE/ COLONY COUNT CPT-4: 92236 01/24/2016 THER/PROPH/DIAG INJ SC/IM CPT-4: 22969 12/08/2015 TRIAMCINOLONE ACET INJ NOS CPT-4: J3301 12/08/2015 THER/PROPH/DIAG INJ SC/IM CPT-4: 73878 10/07/2015 TRIAMCINOLONE ACET INJ NOS CPT-4: J3301 10/07/2015 DESTRUCT PREMALG LESION (Cryosurgery) CPT-4: 81894 THER/PROPH/DIAG INJ SC/IM CPT-4: 11951 03/16/2015 METHYLPREDNISOLONE 40 MG INJ CPT-4: J1030 03/16/2015 DESTRUCT PREMALG LESION (Cryosurgery) CPT-4: 79631 THER/PROPH/DIAG INJ SC/IM CPT-4: 61566 09/11/2014 METHYLPREDNISOLONE 40 MG INJ CPT-4: J1030 09/11/2014 TRIAMCINOLONE ACET INJ NOS CPT-4: J3301 09/11/2014 CEFTRIAXONE SODIUM INJECTION CPT-4: J0696 09/11/2014 THER/PROPH/DIAG INJ SC/IM CPT-4: 14193 09/11/2014 ROUTINE VENIPUNCTURE CPT-4: 09791 08/27/2014 COMPREHEN METABOLIC PANEL CPT-4: 08838 08/27/2014 COMPLETE CBC W/AUTO DIFF WBC CPT-4: 03974 08/27/2014 LIPID PANEL CPT-4: 55582 08/27/2014 ROUTINE VENIPUNCTURE CPT-4: 23523 07/21/2014 ASSAY OF AMYLASE CPT-4: 61991 07/21/2014 ASSAY OF LIPASE CPT-4: 60705 07/21/2014 THER/PROPH/DIAG INJ SC/IM CPT-4: 02915 07/15/2014 TRIAMCINOLONE ACET INJ NOS CPT-4: J3301 07/15/2014 ROUTINE VENIPUNCTURE CPT-4: 97088 05/14/2014 ASSAY OF FREE THYROXINE CPT-4: 01304 05/14/2014 ASSAY THYROID STIM HORMONE CPT-4: 99902 05/14/2014 COMPREHEN METABOLIC PANEL CPT-4: 45656 05/14/2014 COMPLETE CBC W/AUTO DIFF WBC CPT-4: 07629 05/14/2014 LIPID PANEL CPT-4: 81815 05/14/2014 CEFTRIAXONE SODIUM INJECTION CPT-4: J0696 04/21/2014 THER/PROPH/DIAG INJ SC/IM CPT-4: 88616 04/21/2014 THER/PROPH/DIAG INJ SC/IM CPT-4: 37396 04/21/2014 TRIAMCINOLONE ACET INJ NOS CPT-4: J3301 04/21/2014 THER/PROPH/DIAG INJ SC/IM CPT-4: 80348 03/04/2014 METHYLPREDNISOLONE 40 MG INJ CPT-4: J1030 03/04/2014 TRIAMCINOLONE ACET INJ NOS CPT-4: J3301 03/04/2014 CEFTRIAXONE SODIUM INJECTION CPT-4: J0696 03/04/2014 THER/PROPH/DIAG INJ SC/IM CPT-4: 27997 03/04/2014 TDAP VACCINE 7 YRS/> IM CPT-4: 41278 02/27/2014 IMMUNIZATION ADMIN CPT-4: 49111 02/27/2014 DESTRUCT PREMALG LESION (Cryosurgery) CPT-4: 04261 DESTRUCT PREMALG LES 2-14 CPT-4: 23847 01/13/2014 THER/PROPH/DIAG INJ SC/IM CPT-4: 61593 10/21/2013 METHYLPREDNISOLONE 40 MG INJ CPT-4: J1030 10/21/2013 TRIAMCINOLONE ACET INJ NOS CPT-4: J3301 10/21/2013 CEFTRIAXONE SODIUM INJECTION CPT-4: J0696 08/27/2013 THER/PROPH/DIAG INJ SC/IM CPT-4: 92140 08/27/2013 THER/PROPH/DIAG INJ SC/IM CPT-4: 58676 08/27/2013 METHYLPREDNISOLONE 40 MG INJ CPT-4: J1030 08/27/2013 TRIAMCINOLONE ACET INJ NOS CPT-4: J3301 08/27/2013 THER/PROPH/DIAG INJ SC/IM CPT-4: 79544 06/23/2013 METHYLPREDNISOLONE 40 MG INJ CPT-4: J1030 06/23/2013 TRIAMCINOLONE ACET INJ NOS CPT-4: J3301 06/23/2013 THER/PROPH/DIAG INJ SC/IM CPT-4: 25652 05/26/2013 METHYLPREDNISOLONE 40 MG INJ CPT-4: J1030 05/26/2013 TRIAMCINOLONE ACET INJ NOS CPT-4: J3301 05/26/2013 ROUTINE VENIPUNCTURE CPT-4: 06471 03/05/2013 ASSAY OF FREE THYROXINE CPT-4: 16922 03/05/2013 ASSAY THYROID STIM HORMONE CPT-4: 52666 03/05/2013 COMPREHEN METABOLIC PANEL CPT-4: 14308 03/05/2013 COMPLETE CBC W/AUTO DIFF WBC CPT-4: 70044 03/05/2013 A1C GLYCOSYLATED HEMOGLOBIN TEST CPT-4: 18120 013 DRAIN/INJECT JOINT/BURSA CPT-4: 89038 12/04/2012 METHYLPREDNISOLONE 40 MG INJ CPT-4: J1030 12/04/2012 TRIAMCINOLONE ACET INJ NOS CPT-4: J3301 12/04/2012 CEFTRIAXONE SODIUM INJECTION CPT-4: J0696 11/21/2012 THER/PROPH/DIAG INJ SC/IM CPT-4: 58169 11/21/2012 THER/PROPH/DIAG INJ SC/IM CPT-4: 00513 10/14/2012 METHYLPREDNISOLONE 40 MG INJ CPT-4: J1030 10/14/2012 TRIAMCINOLONE ACET INJ NOS CPT-4: J3301 10/14/2012 URINALYSIS NONAUTO W/O SCOPE CPT-4: 75532 09/27/2012 ROUTINE VENIPUNCTURE CPT-4: 66078 09/25/2012 ASSAY OF FREE THYROXINE CPT-4: 47317 09/25/2012 ASSAY THYROID STIM HORMONE CPT-4: 81336 09/25/2012 COMPREHEN METABOLIC PANEL CPT-4: 47798 09/25/2012 COMPLETE CBC W/AUTO DIFF WBC CPT-4: 48331 09/25/2012 C-REACTIVE PROTEIN CPT-4: 84806 09/25/2012 THER/PROPH/DIAG INJ SC/IM CPT-4: 81070 08/29/2012 METHYLPREDNISOLONE 40 MG INJ CPT-4: J1030 08/29/2012 TRIAMCINOLONE ACET INJ NOS CPT-4: J3301 08/29/2012 DESTRUCT PREMALG LESION (Cryosurgery) CPT-4: 15407 THER/PROPH/DIAG INJ SC/IM CPT-4: 94276 05/06/2012 METHYLPREDNISOLONE 40 MG INJ CPT-4: J1030 05/06/2012 TRIAMCINOLONE ACET INJ NOS CPT-4: J3301 05/06/2012 VITAMIN B 12 FOLIC ACID CPT-4: 69579|45022 05/06/2012 RBC SED RATE AUTOMATED CPT-4: 85590 05/06/2012 ROUTINE VENIPUNCTURE CPT-4: 29617 05/06/2012 ASSAY OF FREE THYROXINE CPT-4: 74158 05/06/2012 ASSAY THYROID STIM HORMONE CPT-4: 03480 05/06/2012 COMPREHEN METABOLIC PANEL CPT-4: 84652 05/06/2012 COMPLETE CBC W/AUTO DIFF WBC CPT-4: 51026 05/06/2012 ASSAY OF BLOOD/URIC ACID CPT-4: 89326 05/06/2012 THER/PROPH/DIAG INJ SC/IM CPT-4: 88428 03/19/2012 KETOROLAC TROMETHAMINE INJ CPT-4: J1885 03/19/2012 KETOROLAC TROMETHAMINE INJ CPT-4: J1885 01/30/2012 THER/PROPH/DIAG INJ SC/IM CPT-4: 59757 01/30/2012 PROMETHAZINE HCL INJECTION CPT-4: J2550 01/30/2012 THER/PROPH/DIAG INJ SC/IM CPT-4: 76917 01/24/2012 METHYLPREDNISOLONE 40 MG INJ CPT-4: J1030 01/24/2012 TRIAMCINOLONE ACET INJ NOS CPT-4: J3301 01/24/2012 THER/PROPH/DIAG INJ SC/IM CPT-4: 06505 09/13/2011 KETOROLAC TROMETHAMINE INJ CPT-4: J1885 09/13/2011 THER/PROPH/DIAG INJ SC/IM CPT-4: 75526 09/13/2011 PROMETHAZINE HCL INJECTION CPT-4: J2550 09/13/2011 CEFTRIAXONE SODIUM INJECTION CPT-4: J0696 07/20/2011 THER/PROPH/DIAG INJ SC/IM CPT-4: 93113 07/20/2011 THER/PROPH/DIAG INJ SC/IM CPT-4: 76859 07/20/2011 METHYLPREDNISOLONE INJECTION CPT-4: J2930 07/20/2011 URINALYSIS NONAUTO W/O SCOPE CPT-4: 58410 05/09/2011 CEFTRIAXONE SODIUM INJECTION CPT-4: J0696 05/09/2011 THER/PROPH/DIAG INJ SC/IM CPT-4: 06195 05/09/2011 THER/PROPH/DIAG INJ SC/IM CPT-4: 64546 05/09/2011 PROMETHAZINE HCL INJECTION CPT-4: J2550 05/09/2011 HYDRATION IV INFUSION INIT CPT-4: 69713 05/09/2011 DESTRUCT PREMALG LESION (Cryosurgery) CPT-4: 90126 DESTRUCT PREMALG LES 2-14 CPT-4: 59215 07/19/2010 REMOVAL OF SKIN TAGS <W/15 CPT-4: 69265 05/30/2010 THER/PROPH/DIAG INJ SC/IM CPT-4: 58992 04/05/2010 CEFTRIAXONE SODIUM INJECTION CPT-4: J0696 04/05/2010 TRIAMCINOLONE ACET INJ NOS CPT-4: J3301 04/05/2010 METHYLPREDNISOLONE 40 MG INJ CPT-4: J1030 04/05/2010 THER/PROPH/DIAG INJ SC/IM CPT-4: 38032 04/05/2010 TRIAMCINOLONE ACET INJ NOS CPT-4: J3301 03/09/2010 METHYLPREDNISOLONE 40 MG INJ CPT-4: J1030 03/09/2010 THER/PROPH/DIAG INJ SC/IM CPT-4: 07667 03/09/2010 THER/PROPH/DIAG INJ SC/IM CPT-4: 25452 03/09/2010 CEFTRIAXONE SODIUM INJECTION CPT-4: J0696 03/09/2010 Vital Signs Date Vital 10/07/2019 Blood Pressure 1: 134/82 Code: 8480-6 Heart Rate 1: 105 bpm Respiratory Rate: 17 bpm SpO2: 96% Temperature: 36.8 (C) / 98.2 (F) We ight: 198 lbs 09/30/2019 Blood Pressure 1: 132/80 Code: 8480-6 BMI: 35.8 Code: 73632-6 Heart Rate 1: 88 bpm Height: 5'4" Respiratory Rate: 20 bpm SpO2: 95% Tempera ture: 36.9 (C) / 98.5 (F) Weight: 210 lbs 05/28/2019 Blood Pressure 1: 126/82 Code: 8480-6 BMI: 35.0 Code: 11991-7 Heart Rate 1: 88 bpm Height: 5'4" [...] 1: 128/90 Code: 8480-6 BMI: 37.2 Code: 15257-2 Heart Rate 1: 84 bpm Height: 5'4" Respiratory Rate: 20 bpm SpO2: 95% Tempera ture: 36.6 (C) / 97.8 (F) Weight: 217 lbs 08/27/2018 Blood Pressure 1: 128/88 Code: 8480-6 BMI: 38.3 Code: 60583-7 Heart Rate 1: 84 bpm Height: 5'4" [...] 1: 119/72 Code: 8480-6 BMI: 37.4 Code: 76009-9 Heart Rate 1: 82 bpm Height: 5'4" Respiratory Rate: 12 bpm SpO2: 94% Tempera ture: 35.2 (C) / 95.4 (F) Weight: 218 lbs 12/18/2017 Blood Pressure 1: 128/86 Code: 8480-6 BMI: 37.8 Code: 31254-3 Heart Rate 1: 84 bpm Height: 5'4" [...] 1: 128/82 Code: 8480-6 BMI: 35.5 Code: 34803-2 Heart Rate 1: 84 bpm Height: 5'4" [...] 1: 128/82 Code: 8480-6 BMI: 30.2 Code: 79958-3 Heart Rate 1: 80 bpm Height: 5'4" [...] 1: 128/86 Code: 8480-6 BMI: 32.8 Code: 53793-3 Heart Rate 1: 66 bpm Height: 5'4" Respiratory Rate: 18 bpm Temperature: 36 .3 (C) / 97.3 (F) Weight: 191 lbs 06/23/2013 Blood Pressure 1: 132/94 Code: 8480-6 BMI: 34.0 Code: 00056-8 Heart Rate 1: 84 bpm Height: 5'4" Respiratory Rate: 20 bpm Temperature: 36 .8 (C) / 98.2 (F) Weight: 198 lbs 05/26/2013 Blood Pressure 1: 114/80 Code: 8480-6 BMI: 35.0 Code: 58555-8 Heart Rate 1: 80 bpm Height: 5'4" Respiratory Rate: 20 bpm Temperature: 36 .4 (C) / 97.6 (F) Weight: 204 lbs 04/16/2013 Blood Pressure 1: 114/82 Code: 8480-6 BMI: 36.7 Code: 28244-6 Heart Rate 1: 84 bpm Height: 5'4" Respiratory Rate: 20 bpm Temperature: 36 .7 (C) / 98.0 (F) Weight: 214 lbs 03/05/2013 Blood Pressure 1: 136/90 Code: 8480-6 BMI: 37.1 Code: 06703-3 Heart Rate 1: 84 bpm Height: 5'4" [...] 1: 168/114 Code: 8480-6 BMI: 36.2 Code: 36103-7 Heart Rate 1: 104 bpm Height: 5'4" Respiratory Rate: 20 bpm Temperature: 36 .8 (C) / 98.2 (F) Weight: 211 lbs 11/22/2012 Blood Pressure 1: 128/90 Code: 8480-6 Heart Rate 1: 88 bpm Respiratory Rate: 20 bpm SpO2: 96% Temperature: 36.8 (C) / 98.2 (F) 11/21/2012 Blood Pressure 1: 146/100 Code: 8480-6 BMI: 35.7 Code: 83403-2 Heart Rate 1: 96 bpm Height: 5'4" [...] 1: 138/100 Code: 8480-6 BMI: 35.7 Code: 25081-8 Heart Rate 1: 96 bpm Height: 5'4" Respiratory Rate: 20 bpm Temperature: 36 .8 (C) / 98.2 (F) Weight: 208 lbs 05/06/2012 Blood Pressure 1: 154/102 Code: 8480-6 BMI: 34.7 Code: 99464-8 Heart Rate 1: 116 bpm Height: 5'4" Respiratory Rate: 20 bpm Temperature: 36 .8 (C) / 98.2 (F) Weight: 202 lbs 04/03/2012 Blood Pressure 1: 134/94 Code: 8480-6 BMI: 34.8 Code: 78684-3 Heart Rate 1: 108 bpm Height: 5'4" Respiratory Rate: 20 bpm Temperature: 36 .8 (C) / 98.2 (F) Weight: 203 lbs 03/19/2012 Blood Pressure 1: 148/106 Code: 8480-6 BMI: 35.0 Code: 58131-1 Heart Rate 1: 100 bpm Height: 5'4" Respiratory Rate: 20 bpm Temperature: 36 .6 (C) / 97.9 (F) Weight: 204 lbs 02/22/2012 Blood Pressure 1: 146/94 Code: 8480-6 He art Rate 1: 88 bpm 02/21/2012 Blood Pressure 1: 172/120 Code: 8480-6 B lood Pressure 2: 152/106 Code: 8480-6 Heart Rate 1: 116 bpm 02/20/2012 Blood Pressure 1: 160/100 Code: 8480-6 BMI: 32.0 Code: 61596-8 Heart Rate 1: 84 bpm Height: 5'7" Temperature: 36.5 (C) / 97.7 (F) Weight: 204 lbs 01/30/2012 Blood Pressure 1: 152/110 Code: 8480-6 BMI: 32.0 Code: 20000-7 Heart Rate 1: 116 bpm Height: 5'7" Respiratory Rate: 20 bpm Temperature: 37 .0 (C) / 98.6 (F) Weight: 204 lbs 01/24/2012 Blood Pressure 1: 146/100 Code: 8480-6 BMI: 32.0 Code: 01495-1 Heart Rate 1: 100 bpm Height: 5'7" Respiratory Rate: 20 bpm Temperature: 36 .7 (C) / 98.0 (F) Weight: 204 lbs 01/10/2012 Blood Pressure 1: 156/94 Code: 8480-6 BMI: 32.6 Code: 11046-1 Heart Rate 1: 72 bpm Height: 5'7" Respiratory Rate: 20 bpm Temperature: 36 .8 (C) / 98.2 (F) Weight: 208 lbs 12/11/2011 Blood Pressure 1: 146/100 Code: 8480-6 Heart Rat e 1: 116 bpm Height: 5'7" Respiratory Rate: 20 bpm Temperature: 36.9 (C) / 98.4 (F) We ight: 11/09/2011 Blood Pressure 1: 148/96 Code: 8480-6 BMI: 32.1 Code: 77017-3 Heart Rate 1: 116 bpm Height: 5'7" Respiratory Rate: 20 bpm Temperature: 36 .7 (C) / 98.0 (F) Weight: 205 lbs 09/13/2011 Blood Pressure 1: 126/88 Code: 8480-6 Heart Rate 1: 88 bpm Height: 5'7" Respiratory Rate: 20 bpm Temperature: 36.9 (C) / 98.4 (F) We ight: 08/31/2011 Blood Pressure 1: 118/82 Code: 8480-6 BMI: 32.0 Code: 34065-9 Heart Rate 1: 80 bpm Height: 5'7" Temperature: 36.4 (C) / 97.6 (F) Weight: 204 lbs 07/06/2011 Blood Pressure 1: 128/86 Code: 8480-6 BMI: 30.9 Code: 73056-9 Heart Rate 1: 92 bpm Height: 5'7" Respiratory Rate: 20 bpm Temperature: 36 .9 (C) / 98.4 (F) Weight: 197 lbs 06/06/2011 Blood Pressure 1: 112/74 Code: 8480-6 BMI: 31.0 Code: 83127-2 Heart Rate 1: 72 bpm Height: 5'7" [...] 1: 128/92 Code: 8480-6 BMI: 33.6 Code: 03729-2 Heart Rate 1: 104 bpm Height: 5'4" [...] Check-up Encounters Encounter Performer Location Codes Date ([id number]) OFFICE/OUTPATIENT VISIT EST Diagnosis: Ingrowing nail[ICD10: L60.0] Diagnosis: Type 2 diabetes mellitus with hyperglycemia[ICD10: E11.65] Kathleen ELLISLINE Fabiola APPIAH [facility] CPT-4: 44772 10/07/2019 ([id number]) OFFICE/OUTPATIENT VISIT EST Diagnosis: DM w/o complication type II, uncontrolled[ICD10: E11.65] Diagnosis: Hypertriglyceridemia[ICD10: E78.1] Diagnosis: Essential hypertension[ICD10: I10] María Elena BASURTO TED APPIAH [facility] CPT-4: 29959 09/30/2019 ([id number]) NURSE/OUTPATIENT VISIT EST Diagnosis: Essential (primary) hypertension[ICD10: I10] Diagnosis: Cervicalgia[ICD10: M54.2] Diagnosis: Hyperglycemia, unspecified[ICD10: R73.9] Diagnosis: Mixed hyperlipidemia[ICD10: E78.2] María Elena BASURTO TED [employer] APPIAH [facility] CPT-4: 26205 09/29/2019 ([id number]) OFFICE/OUTPATIENT VISIT EST Diagnosis: Essential (primary) hypertension[ICD10: I10] Diagnosis: Fall from bed, sequela[ICD10: W06.XXXS] María Elena REED LucioJj TD [facility] CPT-4: 92849 05/28/2019 ([id number]) NURSE/OUTPATIENT VISIT EST Diagnosis: Essential (primary) hypertension[ICD10: I10] María Elena JUARES LucioJj TD [facility] CPT-4: 62668 05/19/2019 ([id number]) OFFICE/OUTPATIENT VISIT EST Diagnosis: Essential (primary) hypertension[ICD10: I10] Diagnosis: Type 2 diabetes mellitus with hyperglycemia[ICD10: E11.65] Diagnosis: Intervertebral disc disorders with radiculopathy, 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] Diagnosis: Hormone replacement therapy[ICD10: Z79.890] María Elena JUARES LucioJj TD [facility] CPT-4: 08651 01/22/2019 ([id number]) OFFICE/OUTPATIENT VISIT EST Diagnosis: Essential (primary) hypertension[ICD10: I10] Diagnosis: Type 2 diabetes mellitus with hyperglycemia[ICD10: E11.65] María Elena APPIAH [facility] CPT-4: 68484 09/30/2018 ([id number]) OFFICE/OUTPATIENT VISIT EST Diagnosis: Pain in left elbow[ICD10: M25.522] Diagnosis: Acute stress reaction[ICD10: F43.0] Diagnosis: Primary insomnia[ICD10: F51.01] Diagnosis: Abnormal weight gain[ICD10: R63.5] María Elena APPIAH [facility] CPT-4: 06498 08/27/2018 ([id number]) OFFICE/OUTPATIENT VISIT EST Diagnosis: Acute recurrent sinusitis, unspecified[ICD10: J01.91] Diagnosis: Follicular disorder, unspecified[ICD10: L73.9] Diagnosis: Tinea corporis[ICD10: B35.4] María Elena APPIAH [facility] CPT-4: 42520 08/09/2018 ([id number]) OFFICE/OUTPATIENT VISIT EST Diagnosis: Tinea corporis[ICD10: B35.4] Diagnosis: Anxiety disorder, unspecified[ICD10: F41.9] Diagnosis: Menopausal and female climacteric states[ICD10: N95.1] María Elena APPIAH [facility] CPT-4: 28420 07/22/2018 ([id number]) NURSE/OUTPATIENT VISIT EST Diagnosis: Cellulitis of right toe[ICD10: L03.031] María Elena APPIAH [facility] CPT-4: 83491 06/19/2018 ([id number]) OFFICE/OUTPATIENT VISIT EST Diagnosis: Cellulitis of right toe[ICD10: L03.031] Kathleen Leijaimaldi KYLAH APPIAH [facility] CPT-4: 44876 06/17/2018 ([id number]) OFFICE/OUTPATIENT VISIT EST Diagnosis: Migraine without aura, intractable, without status migrainosus[ICD10: G43.019] Diagnosis: Zoster without complications[ICD10: B02.9] Kathleen Leijaimaldi MARÍA ELENA APPIAH [facility] CPT-4: 56775 05/16/2018 ([id number]) OFFICE/OUTPATIENT VISIT EST Diagnosis: Cellulitis of right lower limb[ICD10: L03.115] Kathleen APPIAH DO [facility] CPT-4: 85962 03/20/2018 ([id number]) OFFICE/OUTPATIENT VISIT EST Diagnosis: Cellulitis of right lower limb[ICD10: L03.115] Kathleen APPIAH DO [facility] CPT-4: 77419 03/18/2018 ([id number]) OFFICE/OUTPATIENT VISIT EST Diagnosis: Cellulitis of right lower limb[ICD10: L03.115] Kathleen APPIAH DO [facility] CPT-4: 33516 03/15/2018 ([id number]) OFFICE/OUTPATIENT VISIT EST Diagnosis: Acute sinusitis, unspecified[ICD10: J01.90] Kathleen APPIAH DO [facility] CPT-4: 96063 02/11/2018 ([id number]) NURSE/OUTPATIENT VISIT EST Diagnosis: Otitis media, unspecified, right ear[ICD10: H66.91] María Elena APPIAH [employer] [facility] CPT-4: 68912 02/01/2018 ([id number]) OFFICE/OUTPATIENT VISIT EST Diagnosis: Acute suppurative otitis media without spontaneous rupture of ear drum, left ear[ICD10: H66.002] Diagnosis: Abnormal weight gain[ICD10: R63.5] Diagnosis: Intervertebral disc disorders with radiculopathy, 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] Kathleen APPIAH DO [facility] CPT-4: 99 214 01/30/2018 ([id number]) PREV VISIT EST AGE 40-64 Diagnosis: Encounter for general adult medical examination without abnormal findings[ICD10: Z00.00] Diagnosis: Essential (primary) hypertension[ICD10: I10] Diagnosis: Mixed hyperlipidemia[ICD10: E78.2] Diagnosis: Type 2 diabetes mellitus with hyperglycemia[ICD10: E11.65] Diagnosis: 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] María Elena APPIAH [employer] [facility] CPT-4: 27359 12/18/2017 ([id number]) OFFICE/OUTPATIENT VISIT EST Diagnosis: Cellulitis of right toe[ICD10: L03.031] Diagnosis: Mixed hyperlipidemia[ICD10: E78.2] Diagnosis: Essential (primary) hypertension[ICD10: I10] Diagnosis: Hyperglycemia, unspecified[ICD10: R73.9] Diagnosis: Nontoxic goiter, 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] María Elena APPIAH DO [facility] CPT-4: 02373 12/10/2017 ([id number]) OFFICE/OUTPATIENT VISIT EST Diagnosis: Cellulitis of right toe[ICD10: L03.031] Diagnosis: Acute sinusitis, unspecified[ICD10: J01.90] Kathleen APPIAH DO [facility] CPT-4: 83003 12/07/2017 OFFICE/OUTPATIENT VISIT EST Diagnosis: Acute maxillary sinusitis, unspecified[ICD10: J01.00] Kathleen APPIAH DO [facility] CPT-4: 27158 10/08/2017 ([id number]) OFFICE/OUTPATIENT VISIT EST Diagnosis: Cellulitis of left toe[ICD10: L03.032] María Elena ISAAC [employer] APPIAH [facility] CPT-4: 99420 09/21/2017 ([id number]) OFFICE/OUTPATIENT VISIT EST Diagnosis: Insomnia, unspecified[ICD10: G47.00] Diagnosis: Major depressive disorder, single episode, unspecified[ICD10: F32.9] Diagnosis: Anxiety disorder, unspecified[ICD10: F41.9] Diagnosis: Cellulitis of left toe[ICD10: L03.032] Diagnosis: Snoring[ICD10: R06.83] Kathleen APPIAH DO [facility] CPT-4: 06166 09/20/2017 ([id number]) OFFICE/OUTPATIENT VISIT EST Diagnosis: Cellulitis of left toe[ICD10: L03.032] María Elena APPIAH DO [facility] CPT-4: 06728 07/19/2017 OFFICE/OUTPATIENT VISIT EST Diagnosis: Chronic sinusitis, unspecified[ICD10: J32.9] Diagnosis: Generalized hyperhidrosis[ICD10: R61] Kathleen APPIAH DO [facility] CPT-4: 96981 06/27/2017 ([id number]) OFFICE/OUTPATIENT VISIT EST Diagnosis: Intervertebral disc disorders with radiculopathy, 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] Diagnosis: Primary insomnia[ICD10: F51.01] Diagnosis: Other fatigue[ICD10: R53.83] María Elena APPIAH DO [facility] CPT-4: 37880 04/10/2017 ([id number]) OFFICE/OUTPATIENT VISIT EST Diagnosis: Primary insomnia[ICD10: F51.01] Diagnosis: Localized edema[ICD10: R60.0] Diagnosis: 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] María Elena APPIAH DO [facility] CPT-4: 06507 12/13/2016 ([id number]) OFFICE/OUTPATIENT VISIT EST Diagnosis: Primary insomnia[ICD10: F51.01] Diagnosis: Cyanosis[ICD10: R23.0] María Elena Bazzi [employer] [facility] CPT-4: 11312 11/01/2016 ([id number]) PREV VISIT EST AGE 40-64 Diagnosis: Encounter for gynecological examination (general) (routine) without abnormal findings[ICD10: Z01.419] Diagnosis: Encounter for routine child health examination without abnormal findings[ICD10: Z00.129] María Elena APPIAH [employer] [facility] CPT-4: 52569 10/17/2016 ([id number]) OFFICE/OUTPATIENT VISIT EST Diagnosis: Other seasonal allergic rhinitis[ICD10: J30.2] María Elena APPIAH DO [facility] CPT-4: 89265 10/10/2016 ([id number]) OFFICE/OUTPATIENT VISIT EST Diagnosis: Pain in left arm[ICD10: M79.602] Diagnosis: Contact with and (suspected) exposure to potentially hazardous body fluids[ICD10: Z77.21] Diagnosis: 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, 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] Diagnosis: Unspecified open wound, right foot, sequela[ICD10: S91.301S] María Elena APPIAH [employer] [facility] CPT-4: 59320 09/19/2016 ([id number]) OFFICE/OUTPATIENT VISIT EST Diagnosis: Chronic sinusitis, unspecified[ICD10: J32.9] Diagnosis: Allergic rhinitis due to pollen[ICD10: J30.1] María Elena APPIAH DO [facility] CPT-4: 16042 08/24/2016 ([id number]) OFFICE/OUTPATIENT VISIT EST Diagnosis: Acute bronchitis, unspecified[ICD10: J20.9] María Elena APPIAH DO [facility] CPT-4: 79070 08/16/2016 ([id number]) OFFICE/OUTPATIENT VISIT EST Diagnosis: Otitis media, unspecified, right ear[ICD10: H66.91] Diagnosis: Acute bronchitis, unspecified[ICD10: J20.9] María Elena APPIAH DO [facility] CPT-4: 26285 08/10/2016 ([id number]) OFFICE/OUTPATIENT VISIT EST Diagnosis: Acute recurrent sinusitis, unspecified[ICD10: J01.91] Diagnosis: Allergic rhinitis due to pollen[ICD10: J30.1] María Elena APPIAH [employer] [facility] CPT-4: 20383 08/02/2016 ([id number]) OFFICE/OUTPATIENT VISIT EST Diagnosis: Pain in unspecified joint[ICD10: M25.50] María Elena APPIAH DO [facility] CPT-4: 29285 07/27/2016 OFFICE/OUTPATIENT VISIT EST Diagnosis: 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] Diagnosis: Acute recurrent sinusitis, unspecified[ICD10: J01.91] Diagnosis: Other fatigue[ICD10: R53.83] Diagnosis: Primary insomnia[ICD10: F51.01] Diagnosis: Pain in unspecified joint[ICD10: M25.50] María Elena APPIAH [employer] [facility] CPT-4: 37571 07/20/2016 ([id number]) OFFICE/OUTPATIENT VISIT EST Diagnosis: Blister (nonthermal), left great toe, initial encounter[ICD10: S90.422A] Loan APPIAH DO [facility] CPT-4: 63916 ([id number]) OFFICE/OUTPATIENT VISIT EST Diagnosis: Acute recurrent sinusitis, unspecified[ICD10: J01.91] María Elena APPIAH DO [facility] CPT-4: 67732 05/25/2016 ([id number]) OFFICE/OUTPATIENT VISIT EST Diagnosis: Acute sinusitis, unspecified[ICD10: J01.90] María Elena APPIAH DO [facility] CPT-4: 42013 04/26/2016 ([id number]) OFFICE/OUTPATIENT VISIT EST Diagnosis: Flushing[ICD10: R23.2] Diagnosis: Primary insomnia[ICD10: F51.01] María Elena APPIAH DO [facility] CPT-4: 79426 03/02/2016 ([id number]) OFFICE/OUTPATIENT VISIT EST Diagnosis: Other seasonal allergic rhinitis[ICD10: J30.2] Loan APPIAH DO [facility] CPT-4: 75723 02/09/2016 ([id number]) OFFICE/OUTPATIENT VISIT EST Diagnosis: Primary insomnia[ICD10: F51.01] Diagnosis: Urinary tract infection, site not specified[ICD10: N39.0] María Elena APPIAH DO [facility] CPT-4: 72597 01/24/2016 ([id number]) OFFICE/OUTPATIENT VISIT EST Diagnosis: Other specified disorders of Eustachian tube, bilateral[ICD10: H69.83] Diagnosis: Allergic rhinitis, unspecified[ICD10: J30.9] Loan APPIAH DO [facility] CPT-4: 12443 12/23/2015 ([id number]) OFFICE/OUTPATIENT VISIT EST Diagnosis: Acute recurrent sinusitis, unspecified[ICD10: J01.91] Diagnosis: 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] Diagnosis: Allergic rhinitis, unspecified[ICD10: J30.9] María Elena APPIAH DO [facility] CPT-4: 33683 12/08/2015 ([id number]) OFFICE/OUTPATIENT VISIT EST Diagnosis: Allergic rhinitis, unspecified[ICD10: J30.9] Diagnosis: Pain in unspecified joint[ICD10: M25.50] Maraí Elena APPIAH DO [facility] CPT-4: 08235 10/07/2015 ([id number]) OFFICE/OUTPATIENT VISIT EST Diagnosis: Essential (primary) hypertension[ICD10: I10] María Elena APPIAH DO [facility] CPT-4: 05531 10/06/2015 OFFICE/OUTPATIENT VISIT EST Diagnosis: Localized enlarged lymph nodes[ICD10: R59.0] Diagnosis: Local infection of the skin and subcutaneous tissue, unspecified[ICD10: L08.9] June VelozAlbertadaniella APPIAH DO [facility] CPT- 4: 01829 09/14/2015 ([id number]) OFFICE/OUTPATIENT VISIT EST Diagnosis: Essential (primary) hypertension[ICD10: I10] Diagnosis: Actinic keratosis[ICD10: L57.0] María Elena APPIAH DO [facility] CPT-4: 40999 09/07/2015 ([id number]) OFFICE/OUTPATIENT VISIT EST Diagnosis: Essential (primary) hypertension[ICD10: I10] Diagnosis: Acute stress reaction[ICD10: F43.0] María Elena APPIAH DO [facility] CPT-4: 20257 08/18/2015 ([id number]) OFFICE/OUTPATIENT VISIT EST Diagnosis: Essential (primary) hypertension[ICD10: I10] María Elena APPIAH DO [facility] CPT-4: 15162 07/07/2015 ([id number]) OFFICE/OUTPATIENT VISIT EST Diagnosis: Essential (primary) hypertension[ICD10: I10] María Elena APPIAH DO [facility] CPT-4: 21799 06/24/2015 ([id number]) OFFICE/OUTPATIENT VISIT EST Diagnosis: Essential (primary) hypertension[ICD10: I10] María Elena APPIAH DO [facility] CPT-4: 42811 06/21/2015 ([id number]) OFFICE/OUTPATIENT VISIT EST Diagnosis: Essential (primary) hypertension[ICD10: I10] Diagnosis: Mixed hyperlipidemia[ICD10: E78.2] Diagnosis: Acute stress reaction[ICD10: F43.0] Diagnosis: Primary insomnia[ICD10: F51.01] María Elena APPIAH [facility] CPT-4: 10364 06/16/2015 ([id number]) OFFICE/OUTPATIENT VISIT EST Diagnosis: INSOMNIA NOS[ICD9: 780.52] Diagnosis: HYPERTENSION[ICD9: 401.9] Diagnosis: Stress reaction[ICD9: 308.9] María Elena APPIAH [facility] CPT-4: 08100 06/02/2015 ([id number]) OFFICE/OUTPATIENT VISIT EST Diagnosis: HYPERTENSION[ICD9: 401.9] Diagnosis: Stress reaction[ICD9: 308.9] María Elena APPIAH [facility] CPT-4: 83808 05/20/2015 ([id number]) OFFICE/OUTPATIENT VISIT EST Diagnosis: Skin lesion[ICD9: 709.9] 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] María Elena APPIAH [facility] CPT-4: 51501 05/10/2015 ([id number]) OFFICE/OUTPATIENT VISIT EST Diagnosis: SINUSITIS, ACUTE[ICD9: 461.9] Diagnosis: ALLERGIC RHINITIS[ICD9: 477.9] Diagnosis: DERMATITIS NOS[ICD9: 692.9] María Elena REHMAN [facility] CPT-4: 50895 03/16/2015 OFFICE/OUTPATIENT VISIT EST Diagnosis: Otitis media[ICD9: 382.9] Diagnosis: SINUSITIS, ACUTE[ICD9: 461.9] June VanSpencer MARÍA ELENA APPIAH [facility] CPT-4: 12872 09/11/2014 ([id number]) OFFICE/OUTPATIENT VISIT EST Diagnosis: HYPERLIPIDEMIA NEC/NOS[ICD9: 272.4] María Elena APPIAH [facility] CPT-4: 65530 08/31/2014 ([id number]) OFFICE/OUTPATIENT VISIT EST Diagnosis: - I - HYPERTENSION[ICD9: 401.9] Diagnosis: HYPERLIPIDEMIA NEC/NOS[ICD9: 272.4] María Elena APPIAH DO [facility] CPT-4: 46298 08/27/2014 ([id number]) OFFICE/OUTPATIENT VISIT EST Diagnosis: ABDOMINAL PAIN[ICD9: 789.00] Diagnosis: DYSPEPSIA[ICD9: 536.8] Diagnosis: Thoracic back pain[ICD9: 724.1] María Elena APPIAH DO [facility] CPT-4: 92576 07/21/2014 ([id number]) OFFICE/OUTPATIENT VISIT EST Diagnosis: ALLERGIC RHINITIS[ICD9: 477.9] María Elena APPIAH DO [facility] CPT-4: 55587 07/15/2014 ([id number]) OFFICE/OUTPATIENT VISIT EST Diagnosis: EDEMA[ICD9: 782.3] Diagnosis: Chronic insomnia[ICD9: 780.52] María Elena APPIAH DO [facility] CPT-4: 35719 05/18/2014 ([id number]) OFFICE/OUTPATIENT VISIT EST Diagnosis: Thyromegaly[ICD9: 240.9] Diagnosis: - I - HYPERTENSION[ICD9: 401.9] Diagnosis: ROUTINE MEDICAL EXAM[ICD9: V70.0] Diagnosis: EDEMA[ICD9: 782.3] María Elena APPIAH DO [facility] CPT-4: 32340 05/14/2014 OFFICE/OUTPATIENT VISIT EST Diagnosis: BRONCHITIS, ACUTE[ICD9: 466.0] Diagnosis: SINUSITIS, ACUTE[ICD9: 461.9] María Elena APPIAH [facility] CPT-4: 53258 04/21/2014 OFFICE/OUTPATIENT VISIT EST Diagnosis: SINUSITIS, ACUTE[ICD9: 461.9] June Flores MARÍA ELENA APPIAH [facility] CPT-4: 59255 03/04/2014 ([id number]) OFFICE/OUTPATIENT VISIT EST Diagnosis: VACCINE FOR TDAP[ICD10: Z23] María Elena APPIAH DO [facility] CPT-4: 40707 02/27/2014 ([id number]) OFFICE/OUTPATIENT VISIT EST Diagnosis: Seborrheic keratoses, inflamed[ICD9: 702.11] Diagnosis: ACTINIC KERATOSIS[ICD9: 702.0] Diagnosis: INSOMNIA NOS[ICD9: 780.52] María Elena [facility] CPT-4: 49935 01/13/2014 OFFICE/OUTPATIENT VISIT EST Diagnosis: EUSTACHIAN TUBE DYSFUNCTION[ICD9: 381.81] Diagnosis: ALLERGIC RHINITIS[ICD9: 477.9] Diagnosis: Serous otitis media[ICD9: 381.4] María [facility]: 99183 12/24/2013 ([id number]) OFFICE/OUTPATIENT VISIT EST Diagnosis: SINUSITIS, ACUTE[ICD9: 461.9] Diagnosis: ALLERGIC RHINITIS[ICD9: 477.9] Diagnosis: EUSTACHIAN TUBE DYSFUNCTION[ICD9: 381.81] María Elena [facility] CPT-4: 53907 11/12/2013 ([id number]) OFFICE/OUTPATIENT VISIT EST Diagnosis: ALLERGIC RHINITIS[ICD9: 477.9] Diagnosis: SINUSITIS, ACUTE[ICD9: 461.9] María Elena [facility] CPT-4: 03639 10/21/2013 ([id number]) OFFICE/OUTPATIENT VISIT EST Diagnosis: ASYMPTOMATIC VARICOSE VEINS[ICD9: 454.9] Diagnosis: INSOMNIA NOS[ICD9: 780.52] María Elena Valdes KRISTYN [facility] CPT-4: 87420 09/22/2013 OFFICE/OUTPATIENT VISIT EST Diagnosis: SINUSITIS, ACUTE[ICD9: 461.9] June Sandra MARÍA ELENA [facility] CPT-4: 35987 08/27/2013 ([id number]) OFFICE/OUTPATIENT VISIT EST Diagnosis: CEPHALGIA[ICD9: 784.0] Diagnosis: CEPHALGIA, TENSION[ICD9: 307.81] 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] María Elena [facility] CPT-4: 33573 08/04/2013 ([id number]) OFFICE/OUTPATIENT VISIT EST Diagnosis: Cervicalgia[ICD9: 723.1] Diagnosis: SPASM OF MUSCLE[ICD9: 728.85] Diagnosis: CEPHALGIA, TENSION[ICD9: 307.81] María Elena Td ELLISLINE Fabiola APPIAH DO [facility] CPT-4: 35042 07/23/2013 ([id number]) OFFICE/OUTPATIENT VISIT EST Diagnosis: EUSTACHIAN TUBE DYSFUNCTION[ICD9: 381.81] Diagnosis: ALLERGIC RHINITIS[ICD9: 477.9] María Elena ELLISLINE Lucio APPIAH DO [facility] CPT-4: 56442 06/23/2013 ([id number]) OFFICE/OUTPATIENT VISIT EST Diagnosis: ALLERGIC RHINITIS[ICD9: 477.9] Diagnosis: ACUTE SEROUS OTITIS MEDIA[ICD9: 381.01] Diagnosis: EUSTACHIAN TUBE DYSFUNCTION[ICD9: 381.81] María Elena Td ELLISLINE LucioJj TD [facility] CPT-4: 94357 05/26/2013 ([id number]) OFFICE/OUTPATIENT VISIT EST Diagnosis: HYPERTENSION[ICD9: 401.9] Diagnosis: EDEMA[ICD9: 782.3] Diagnosis: Serous otitis media[ICD9: 381.4] María Elena ELLISLINE Fabiola APPIAH [facility] CPT-4: 17499 04/16/2013 ([id number]) OFFICE/OUTPATIENT VISIT EST Diagnosis: SINUSITIS, ACUTE[ICD9: 461.9] Diagnosis: ALLERGIC RHINITIS[ICD9: 477.9] Diagnosis: EDEMA[ICD9: 782.3] Diagnosis: Thyromegaly[ICD9: 240.9] Diagnosis: MALAISE AND FATIGUE[ICD9: 780.79] María Elena Seamusabbey Lopez LucioJj TD [employer] [facility] CPT-4: 41613 03/05/2013 ([id number]) OFFICE/OUTPATIENT VISIT EST Diagnosis: PAIN, LOWER BACK[ICD9: 724.2] Diagnosis: SPASM OF MUSCLE[ICD9: 728.85] María Elena JUARES LucioJj TD [employer] [facility] CPT-4: 10838 12/23/2012 OFFICE/OUTPATIENT VISIT EST Diagnosis: Low back pain[ICD9: 724.2] Lashawn Hicks KRISTYN MUMTAZ [facility] CPT-4: 86358 12/16/2012 ([id number]) OFFICE/OUTPATIENT VISIT EST Diagnosis: PAIN, LOWER BACK[ICD9: 724.2] Diagnosis: SCIATICA[ICD9: 724.3] Diagnosis: Lumbar herniated disc[ICD9: 722.10] María Elena ELLISJaylin APPIAH DO [facility] CPT-4: 96439 12/09/2012 ([id number]) OFFICE/OUTPATIENT VISIT EST Diagnosis: PAIN, LOWER BACK[ICD9: 724.2] Diagnosis: SCIATICA[ICD9: 724.3] Diagnosis: LUMBAR DISC DISPLACEMENT[ICD9: 722.10] María Elena MARIN Fabiola APPIAH DO [facility] CPT-4: 75466 12/04/2012 OFFICE/OUTPATIENT VISIT EST Diagnosis: Pneumonia[ICD9: 486] Mary Tillman MARÍA ELENA APPIAH DO [facility] CPT-4: 34974 11/22/2012 ([id number]) OFFICE/OUTPATIENT VISIT EST Diagnosis: PNEUMONIA, ORGANISM[ICD9: 486] Diagnosis: Exacerbation of RAD (reactive airway disease)[ICD9: 493.92] María Elena Td APPIAH DO [facility] CPT-4: 07181 11/21/2012 OFFICE/OUTPATIENT VISIT EST Diagnosis: HYPERTENSION[ICD9: 401.9] Diagnosis: Cephalgia[ICD9: 784.0] Lashawn MONTEROQUELINE Fabiola APPIAH DO L CPT-4: 03490 10/29/2012 ([id number]) OFFICE/OUTPATIENT VISIT EST Diagnosis: MALAISE AND FATIGUE[ICD9: 780.79] Diagnosis: ARTHRALGIA-MULTIPLE SITES[ICD9: 719.49] María Elena REED Fabiola APPIAH DO [facility] CPT-4: 13390 10/14/2012 ([id number]) OFFICE/OUTPATIENT VISIT EST Diagnosis: URINARY FREQUENCY[ICD9: 788.41] María Elena MONTEROQUELINE Fabiola APPIAH DO [facility] CPT-4: 32995 09/27/2012 ([id number]) OFFICE/OUTPATIENT VISIT EST Diagnosis: MALAISE AND FATIGUE[ICD9: 780.79] Diagnosis: ARTHRALGIA-MULTIPLE SITES[ICD9: 719.49] María Elena APPIAH [facility] CPT-4: 43772 09/25/2012 ([id number]) OFFICE/OUTPATIENT VISIT EST Diagnosis: SINUSITIS, ACUTE[ICD9: 461.9] Diagnosis: EUSTACHIAN TUBE DYSFUNCTION[ICD9: 381.81] María Elena APPIAH [facility] CPT-4: 62134 08/29/2012 OFFICE/OUTPATIENT VISIT EST Diagnosis: ACTINIC KERATOSIS[ICD9: 702.0] Diagnosis: Inflamed seborrheic keratosis[ICD9: 702.11] Diagnosis: Skin cancer of face[ICD9: 173.31] Diagnosis: HYPERTENSION[ICD9: 401.9] María Elena [facility]OY [facility] CPT-4: 25939 08/12/2012 ([id number]) OFFICE/OUTPATIENT VISIT EST Diagnosis: ARTHRALGIA-MULTIPLE SITES[ICD9: 719.49] Diagnosis: GOUT[ICD9: 274.9] Diagnosis: HYPERTENSION[ICD9: 401.9] Diagnosis: Tachycardia[ICD9: 785.0] María Elena BRADFORD [facility] CPT-4: 29956 05/06/2012 ([id number]) OFFICE/OUTPATIENT VISIT EST Diagnosis: INSOMNIA NOS[ICD9: 780.52] María Elena [facility] CPT-4: 47118 04/03/2012 ([id number]) OFFICE/OUTPATIENT VISIT EST Diagnosis: INSOMNIA NOS[ICD9: 780.52] Diagnosis: HYPERTENSION[ICD9: 401.9] Diagnosis: MIGRAINE NOS/NOT INTRCBL[ICD9: 346.90] María Elena [facility] CPT-[facility]: 92275 03/19/2012 ([id number]) OFFICE/OUTPATIENT VISIT EST Diagnosis: CELLULITIS[ICD9: 682.9] Diagnosis: Ankle pain[ICD9: 719.47] Diagnosis: HYPERTENSION[ICD9: 401.9] María Elena SEYMOUR [facility] CPT-4: 01296 02/20/2012 ([id number]) OFFICE/OUTPATIENT VISIT EST Diagnosis: MIGRAINE NOS/NOT INTRCBL[ICD9: 346.90] Diagnosis: Vomiting[ICD9: 787.03] María Elena Seamusabbey JUARES LucioJj CIRO Bazzi [facility] CPT-4: 36770 01/30/2012 ([id number]) OFFICE/OUTPATIENT VISIT EST Diagnosis: EDEMA[ICD9: 782.3] Diagnosis: HYPERTENSION[ICD9: 401.9] Diagnosis: ALLERGIC RHINITIS[ICD9: 477.9] Diagnosis: ARTHRALGIA-MULTIPLE SITES[ICD9: 719.49] María Elena MONTERO APARNAALCIDES LucioJj TD [facility] CPT-4: 05725 01/24/2012 ([id number]) OFFICE/OUTPATIENT VISIT EST Diagnosis: SPASM OF MUSCLE[ICD9: 728.85] Diagnosis: Thoracic back pain[ICD9: 724.1] Diagnosis: Cervical pain[ICD9: 723.1] María Elena JUARES LucioJj KRISTYN PANDYA [facility] CPT-4: 56790 01/10/2012 OFFICE/OUTPATIENT VISIT EST Diagnosis: PAIN, LOWER BACK[ICD9: 724.2] Diagnosis: LUMBAR DISC DISPLACEMENT[ICD9: 722.10] María Elena MARIN LucioJj TD [facility] CPT-4: 18950 12/11/2011 OFFICE/OUTPATIENT VISIT EST Diagnosis: MIGRAINE NOS/NOT INTRCBL[ICD9: 346.90] Diagnosis: SINUSITIS, ACUTE[ICD9: 461.9] María Elena Seamusabbey JUARES LucioJj TD [facility] CPT-4: 02410 11/09/2011 OFFICE/OUTPATIENT VISIT EST Diagnosis: MIGRAINE NOS/NOT INTRCBL[ICD9: 346.90] Diagnosis: LYMPHADENOPATHY[ICD9: 785.6] María Elena Seamusabbey JUARES LucioJj TD [facility] CPT-4: 28090 09/13/2011 OFFICE/OUTPATIENT VISIT EST Diagnosis: MALAISE AND FATIGUE[ICD9: 780.79] Diagnosis: ARTHRALGIA-MULTIPLE SITES[ICD9: 719.49] María Elena REED LucioJj TD [facility] CPT-4: 92873 08/31/2011 OFFICE/OUTPATIENT VISIT EST Diagnosis: SINUSITIS, ACUTE[ICD9: 461.9] María Elena ValdesJj ORENDER DO [facility] CPT-4: 09817 07/20/2011 OFFICE/OUTPATIENT VISIT EST Diagnosis: HYPERTENSION[ICD9: 401.9] Diagnosis: PAIN, LOWER BACK[ICD9: 724.2] Diagnosis: SPASM OF MUSCLE[ICD9: 728.85] María Elena GODOYNDER DO [facility] CPT-4: 98839 07/06/2011 OFFICE/OUTPATIENT VISIT EST Diagnosis: MIGRAINE NOS/NOT INTRCBL[ICD9: 346.90] Diagnosis: HYPERTENSION[ICD9: 401.9] María Elena GODOY NDER DO [facility] CPT-4: 15756 05/22/2011 OFFICE/OUTPATIENT VISIT EST Diagnosis: SINUSITIS, ACUTE[ICD9: 461.9] Diagnosis: MIGRAINE NOS/NOT INTRCBL[ICD9: 346.90] Diagnosis: Dehydration[ICD9: 276.51] Diagnosis: Vomiting[ICD9: 787.03] María Elena Seamusmindimaryjane MARÍA ELENA LucioJj MARIVELE R DO [facility] CPT-4: 90674 05/09/2011 ([id number]) OFFICE/OUTPATIENT VISIT EST María Elena Td ISAAC UJARED S. ORENDER DO [facility] CPT-4: 28746 02/14/2011 ([id number]) OFFICE/OUTPATIENT VISIT EST María Elena Td ISAAC UJARED S. ORENDER DO [facility] CPT-4: 15129 02/03/2011 ([id number]) OFFICE/OUTPATIENT VISIT EST María Elena Seamusmindimaryjane ISAAC UJARED S. ORENDER DO [facility] CPT-4: 71790 01/31/2011 ([id number]) OFFICE/OUTPATIENT VISIT EST María Elena Td ISAAC UELINE S. ORENDER DO [facility] CPT-4: 04257 01/25/2011 ([id number]) OFFICE/OUTPATIENT VISIT EST María Elena Seamusmindimaryjane ISAAC UJARED S. ORENDER DO [facility] CPT-4: 15501 01/18/2011 ([id number]) OFFICE/OUTPATIENT VISIT EST María Elena Seamusmindimaryjane ISAAC UJARED S. ORENDER DO [facility] CPT-4: 39557 11/29/2010 ([id number]) OFFICE/OUTPATIENT VISIT, EST María Elena MONTERO APARNAALCIDES S. ORENDER DO [facility] CPT-4: 38720 10/10/2010 ([id number]) OFFICE/OUTPATIENT VISIT, EST María Elena GODOYNDER DO [facility] CPT-4: 99483 06/07/2010 ([id number]) OFFICE/OUTPATIENT VISIT, EST María Elena GODOYNDER [facility] CPT-4: 83261 04/27/2010 ([id number]) OFFICE/OUTPATIENT VISIT, EST María Elena GODOYNDER DO [facility] CPT-4: 61377 04/05/2010 ([id number]) OFFICE/OUTPATIENT VISIT, EST María Elena GODOYNDER DO [facility] CPT-4: 83847 03/09/2010 ([id number]) OFFICE/OUTPATIENT VISIT, EST María Elena GODOYNDER [facility] CPT-4: 80380 03/03/2010 ([id number]) OFFICE/OUTPATIENT VISIT, EST María Elena ORTAER [facility] CPT-4: 22109 01/17/2010 ([id number]) PREV VISIT, EST, AGE 40-64 María Elena APPIAH DO [facility] CPT-4: 22824 12/27/2009 Plan of Care Planned Activity Notes [...] ICD-10 : E11.65 10/07/2019 Appointment: Kathleen Zuniga [address] [place], [place] [id number] OFF[facility] SURGERY 10/07/2019 Visit Diagnosis Plan: Hypertriglyceridemia [...] 09/30/2019 Appointment: María Elena Appiah WPtel: [address] [place], [place] [phone] [place] CHECK UP 09/30/2019 Patient Education: Premarin- [employer] Coupon [id number] https://www.Socialcam.com/samplemd/resources/getResource/61/17686x21-i299-1zmc-b7 Completed 09/30/2019 Appointment: María Elena Appiah WPtel: [address] [place], [place] [phone] [place] LAB 09/29/2019 Appointment: María Elena Appiah WPtel: [address] [place], [place] [phone] [place] Won't have [...] W06.XXXS 05/28/2019 Appointment: María Elena Appiah WPtel: [address] [place], [place] [phone] [place] FOLLOW UP 05/28/2019 Appointment: María Elena Appiah WPtel: [address] [place], [place] [phone] US BP CHECK 05/19/2019 Visit Diagnosis Plan: [...] Z79.890 01/22/2019 Appointment: María Elena Appiah WPtel: [address] [place], [place] [phone] [place] FOLLOW UP 01/22/2019 Patient Education: estradiol- [employer] Coupon [id number] https://www.PublikDemand/samplemd/resources/getResource/61/393y736x-0rn2-1q02-9b Completed 01/22/2019 Appointment: María Elena Appiahtel: [address] [place], [place] [phone] [place] CANCELED 01/20/2019 Appointment: María Elena Appiah WPtel: [address] [place] [address] [place] LM NO SHOW 01/06/2019 Appointment: María Elena Appiah WPtel: [address] [place] [address] [place] CANCELED 10/17/2018 Appointment: María Elena Appiah WPtel: [address] [place] [address] US BP CHECK 10/09/2018 Visit Diagnosis Plan: [...] I10 09/30/2018 Appointment: María Elena Appiah WPtel: [address] [place] [address] [place] FOLLOW UP 09/30/2018 Visit Diagnosis Plan: [...] : F51.01 08/27/2018 Appointment: María Elena Appiahtel: [address] [place] [address] ACUTE ILLNESS 08/27/2018 Appointment: María Elena Appiah WPtel: [address] [place] [address] [place] Patient stated she went out to [...] prn. Tyle... 08/09/2018 Appointment: María Elena Appiahtel: [address] [place] [address] ACUTE ILLNESS 08/09/2018 Appointment: María Elena Appiahtel: [address] [place] [address] NO SHOW 08/08/2018 Visit Diagnosis Plan: Anxiety [...] : B35.4 07/22/2018 Appointment: María Elena Appiahtel: [address] [place] [address] ACUTE ILLNESS 07/22/2018 Appointment: María Elena Appiah WPtel: [address] [place] [address] [place] INJECTION 06/19/2018 Patient Education: Patient Medication [...] ICD-10 : L03.031 06/17/2018 Appointment: Kathleen Zuniga [address] [place] [address] ACUTE ILLNESS 06/17/2018 Patient Education: Patient Medication [...] : B02.9 05/16/2018 Appointment: Kathleen Zuniga [address] [place] [address] ACUTE ILLNESS 05/16/2018 Patient Education: Patient Medication [...] ICD-10 : L03.115 03/20/2018 Appointment: Kathleen Zuniga [address] [place], [place] [address] FOLLOW UP 03/20/2018 Patient Education: Patient Medication [...] : L03.115 03/18/2018 Appointment: Kathleen Zuniga [address] [phone] FOLLOW UP 03/18/2018 Patient Education: Patient Medication [...] : L03.115 03/15/2018 Appointment: Kathleen Zuniga [address] [facility] ACUTE ILLNESS 03/15/2018 Patient Education: Patient [...] : J01.90 02/11/2018 Appointment: Kathleen Zuniga [address] [facility] ACUTE ILLNESS 02/11/2018 Patient Education: Patient Medication Summary Completed 02/11/2018 Appointment: María Elena Appiah WPtel: [address] [facility] [place] INJECTION 02/01/2018 Patient Education: Patient Medication [...] ICD-10 : M51.16 01/30/2018 Appointment: Kathleen Zuniga [address] [place], [place] [phone] ACUTE ILLNESS 01/30/2018 Patient Education: Patient [...] 12/18/2017 Appointment: María Elena Appiah WPtel: [phone] Annual Well Visit 12/18/2017 Patient Education: Patient Medication Summary Completed 12/18/2017 Care Plan: Referral Order SNOMED-CT : [id number] Pending 12/18/2017 Appointment: María Elena Appiah WPtel: [facility] [address] [place] INJECTION 12/10/2017 Patient Education: Patient Medication [...] ICD-10 : L03.031 12/07/2017 Appointment: Kathleen Zuniga [address] [place] [address] ACUTE ILLNESS 12/07/2017 Patient Education: Patient Medication [...] : J01.00 10/08/2017 Appointment: Kathleen Zuniga [address] [place] [address] ACUTE ILLNESS 10/08/2017 Patient Education: Patient Medication Summary Completed 10/08/2017 Appointment: María Elena Appiah WPtel: [address] [address] [place] INJECTION 09/21/2017 Patient Education: Patient Medication [...] ICD-10 : R06.83 09/20/2017 Appointment: Kathleen Zuniga [address] [place], [place] [id number] ACUTE ILLNESS 09/20/2017 Patient Education: Patient Medication [...] : L60.0 08/29/2017 Appointment: Kathleen Zuniga [address] [place], [place] [phone] OFFICE SURGERY 08/29/2017 Patient Education: Patient Medication Summary Completed 08/29/2017 Visit Diagnosis Plan: Actinic keratosis Discussion: Cr yotherapy as above ICD-9 : 702.0 ICD-10 : L57.0 08/01/2017 Appointment: María Elena Appiah WPtel: [address] [place], [place] [phone] OFFICE SURGERY 08/01/2017 Patient Education: Patient Medication Summary Completed 08/01/2017 Appointment: María Elena Appiah WPtel: [address] [place], [place] [phone] PATIENT THOUGHT APPOINTMENT WAS TOMORROW 07/26/17 CALLED 15 MINUTES BEFORE APPT TO SAY SHE DIDN'T HAVE ANYONE TO COVER HER BUSINESS AND WOULD NOT MAKE IT NO SHOW 07/25/2017 Visit Diagnosis Plan: Cellulitis of left toe Discussio n: Clindamycin and notify if worsening or persistis ICD-9 : 681.10 ICD-10 : L03.032 07/19/2017 Appointment: María Elena Appiah WPtel: [address] [place], [place] [phone] MEDICATION REVIEW 07/19/2017 Patient Education: Patient Medication Summary Completed 07/19/2017 Appointment: María Elena Appiah WPtel: [address] [place], [place] [phone] [place] CANCELED 07/04/2017 Visit Diagnosis Plan: Generalized hyperhidrosis Discus ian: CBC, CMP, TSH, free T4 ordered to assess. will review labs. ICD-9 : 780.8 ICD-10 : R61 06/27/2017 Visit Diagnosis Plan: Chronic sinusitis, unspecified D iscussion: Referral sent to dr. albarado in [place] per patient request. patient has been treated multiple times for sinus infections with no recovery. patient was seen by dr sanchez in the past with no interventions. patient has deviated septum which may be affecting her sinuses. 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, including hip Discussion: Shave removal of above lesio n--sent to pathology ICD-9 : 216.7 ICD-10 : D23.72 01/24/2017 Appointment: María Elena Appiah WPtel: [address] [place], [place] [id number] 01/23 confirmed ~sl OFFICE SURGERY 01/24/2017 Patient Education: Patient Medication Summary Completed 01/24/2017 Appointment: Loan Sánchez [address] [place], [place] [id number] 01/09 rescheduled~sl RESCHEDULED 01/15/2017 Visit [...] 12/13/2016 Appointment: María [facility] [phone] [facility] [place] 12/12 confirmed ~ MEDICATION REVIEW 12/13/2016 Patient Education: Patient Medication Summary Completed 12/13/2016 Appointment: María Elena Appiah [facility] [phone] [id number] [place] rescheduled for 12/13/16 at 11am RESCHEDULED 0 12/06/2016 Appointment: María Elena Appiah [facility]: [phone] [facility] [place] CANCELED 11/23/2016 Patient Education: Patient Medication [...] 11/01/2016 Appointment: María Elena Appiah [facility] [phone] [facility] [place] 10/31 lm `sl 11/01 lm`sl MEDICATION REVIEW 017 Patient Education: Patient Medication Summary Completed 11/01/2016 Referral: Canelo Overton WPtel: [phone] [id number] [place] Referral Initiated 10/30/2016 Visit Diagnosis Plan: [...] Z01.419 10/17/2016 Appointment: María Elena Appiah WPtel: [address] [place] [address] 10/16 confirmed ~sl PAP 10/17/2016 Patient Education: Patient Medication Summary Completed 10/17/2016 Care Plan: MAMMOGRAM SCREENING [facility] : [phone] Pending 10/17/2016 Visit Diagnosis Plan: Other seasonal allergic rhinitis Discussion: Decadron/Garamycin Nasal Odin Mix Too soon for steroid Retry zyrtec 10mg daily ICD-9 : 477.9 ICD-10 : J30.2 10/10/2016 Appointment: María Elena Appiah WPtel: [address] [place], [place] [phone] US FOLLOW UP 10/10/2016 Patient Education: Patient Medication Summary Completed 10/10/2016 Appointment: María Elena Appiah WPtel: [address] [place], [place] [phone] 10/02 reschedule `sl RESCHEDULED 10/02/2016 Visit Plan: See surgery for removal of n ew left arm lesion and right foot lesion Lyrica to use next month for left arm paresthesias Continue current meds Discussed sunscreen/sunblock combo 09/19/2016 Appointment: María Elena Appiah WPtel: [address] [place], [place] [phone] 09/18 confirmed ~sl FOLLOW UP 09/19/2016 Patient Education: Patient Medication Summary Completed 09/19/2016 Patient Education: Patient Medication Summary Completed 09/18/2016 Care Plan: MAMMOGRAM BOTH BREASTS LOINC : 45678-6 Pending 09/18/2016 Visit Plan: Discussed that needs [...] sinuses 08/24/2016 Appointment: María Elena Appiah WPtel: [address] [place] [address] ACUTE ILLNESS 08/24/2016 Patient Education: Patient Medication Summary Completed 08/24/2016 Patient Education: Patient Medication Summary Completed 08/23/2016 Care Plan: MAMMOGRAM SCREENING LOINC : 2 6347-5 Pending 08/23/2016 Visit Plan: Finish doxycycline Add Breo 100/25 1 p BID for 2 weeks If not improving within next 2 days will get CXR 08/16/2016 Appointment: María Elena Appiah WPtel: [address] [place] [address] ACUTE ILLNESS 08/16/2016 Patient Education: Patient Medication Summary Completed 08/16/2016 Visit Plan: Supportive care. Rest, Fluid s, Tylenol/Motrin prn fever or bodyaches. Notify if worsening symptoms. Doxycyline and Prednisone 08/10/2016 Appointment: María Elena Appiah WPtel: [address] [place] [address] 08/09 lm`sl....confirmed-sp FOLLOW UP 09/2015 Patient Education: Patient Medication Summary Completed 08/10/2016 Visit Plan: Saline nasal flushes prn. Ty lenol/Motrin prn headache. Notify if persists/symptoms worsening. Dexamethasone 8mg IM today May use coricedan and mucinex 08/02/2016 Appointment: María Elena Appiah WPtel: [address] [place], [place] [phone] ACUTE ILLNESS 08/02/2016 Patient Education: Patient Medication Summary Completed 08/02/2016 Visit Plan: Cryotherapy as above and lef t forearm lesion removal as above with 5-0 punch biopsy and sent to path Return in 10 days for suture removal 08/01/2016 Appointment: María Elena Appiah WPtel: [address] [place] [address] 07/31 confirmed`~ OFFICE SURGERY 08/01/2016 Patient Education: Patient Medication Summary Completed 08/01/2016 Visit Plan: Stop clindamycin Check CBC, CMP, ESR now/STAT 07/27/2016 Appointment: María Elena Appiah WPtel: [address] [place] [address] ACUTE ILLNESS 07/27/2016 Patient Education: Patient Medication Summary Completed 07/27/2016 Visit Plan: Update lab and check ABIs to start with Will likely need cardiology evaluation to rule out PVD Clindamycin for 10 days Daily yogurt or probiotic Will return for removal of left arm lesions 07/20/2016 Appointment: María Elena Appiah WPtel: [address] [place] [address] ACUTE ILLNESS 07/20/2016 Patient Education: Patient Medication Summary Completed 07/20/2016 Patient Education: Patient Medication Summary Completed 07/20/2016 Care Plan: MAMMOGRAM BOTH BREASTS LOINC : 78451-1 Pending 07/20/2016 Care Plan: US EXAM CHEST LOINC : 73719-9 Pending 07/20/2016 Visit Plan: Wound culture collected from left great toe Appearance is somewhat staph like Rx as above Wound cleanser and skin care reviewed May need to add oral antibiotic if sores do not heal or continue to reoccur 07/06/2016 Appointment: Loan Sánchez [address] [place] [address] ACUTE ILLNESS 07/06/2016 Patient Education: Patient Medication Summary Completed 07/06/2016 Appointment: María Elena Appiah WPtel: [address] [place] [address] US INJECTION 05/25/2016 Patient Education: Patient Medication Summary Completed 05/25/2016 Visit Plan: Saline nasal flushes prn. Ty lenol/Motrin prn headache. Notify if persists/symptoms worsening. Dexamethasone and Rocephin given 04/26/2016 Appointment: María Elena Appiah WPtel: [address] [place] [address] ACUTE ILLNESS 04/26/2016 Patient Education: Patient Medication Summary Completed 04/26/2016 Visit Plan: Check CBC, CMP, TSH, FreeT4, HbA1C, estradiol, lipids in AM 03/02/2016 Appointment: María Elena Appiah WPtel: [address] [place] [address] 03/01 lm~sl ACUTE ILLNESS 03/02/2016 Patient Education: Patient Medication Summary Completed 03/02/2016 Visit Plan: Exam is nearly normal Needs to be taking daily antihistamine Would prefer to use oral steroids instead of shot but patient insist that oral steroids cause horrible headaches for her Will given kenalog IM instead 02/09/2016 Appointment: Loan Sánchez [address] [place] [address] ACUTE ILLNESS 02/09/2016 Patient Education: Patient Medication Summary Completed 02/09/2016 Visit Plan: Culture urine Macrobid DC xa nax Trial of Ativan 1mg q HS 01/24/2016 Appointment: María Elena Appiah WPtel: [address] [place] [address] ACUTE ILLNESS 01/24/2016 Patient Education: Patient Medication Summary Completed 01/24/2016 Visit Plan: No steroid or rocephin injec tion warranted Can have oral prednisone Continue current home regimen Needs to follow up with Dr Sanchez if problems persist 12/23/2015 Appointment: Loan Sánchez [address] [place] [address] ACUTE ILLNESS 12/23/2015 Patient Education: Patient Medication Summary Completed 12/23/2015 Visit Plan: Saline nasal flushes prn. Ty lenol/Motrin prn headache. Notify if persists/symptoms worsening. Kenalog 40mg IM today 12/08/2015 Appointment: María Elena Appiah WPtel: [address] [place], [place] [phone] 12/06 confirmed~sl ACUTE ILLNESS 12/08/2015 Patient Education: Patient Medication Summary Completed 12/08/2015 Appointment: María Elena Appiah WPtel: [address] [place], [place] [phone] ACUTE ILLNESS 11/18/2015 Patient Education: Patient Medication Summary Completed 10/11/2015 Appointment: María Elena Appiah WPtel: [address] [place], [place] [phone] [place] INJECTION 10/07/2015 Patient Education: Patient Medication Summary Completed 10/07/2015 Visit Plan: Check renal arterial doppler s and ECHO Change amlodopine to lotrel 5/20mg q HS Will need stress test as well Check CMP, uric acid, ESR 10/06/2015 Appointment: María Elena Appiah WPtel: [address] [place], [place] [phone] ACUTE ILLNESS 10/06/2015 Patient Education: Patient Medication Summary Completed 10/06/2015 Patient Education: [facility] - [employer] - Amlodipine Besylate - 18-64 - Dynamic Portal ID Completed 10/06/2015 Appointment: María Elena Appiah WPtel: [address] [place], [place] [phone] FOLLOW UP 09/22/2015 Visit Plan: Cephalexin 500 mg PO bid Mery ly topical Mupirocin to lesions on left lateral neck and face Follow-up in one week. Sooner if symptoms worsen 09/14/2015 Appointment: June Flores WPtel: [address] [place], [place] [phone] ACUTE ILLNESS 09/14/2015 Patient Education: Patient Medication Summary Completed 09/14/2015 Visit Plan: Change bystolic to bedtime d osing and amlodopine to morning dosing Cryotherapy as above to AKs 09/07/2015 Appointment: María Elena Appiah WPtel: [address] [place], [place] [phone] 09/06 appointment made and confirmed ~sl FOLLOW UP 09/07/2015 Patient Education: Patient Medication Summary Completed 09/07/2015 Visit Plan: Increase bystolic back to 20 mg daily but will split and take 10mg in AM and 10mg in PM Stress Reducers 08/18/2015 Appointment: María Elena Appiah WPtel: [address] [place], [place] [phone] 08/17/15 appt confirmed cn ACUTE ILLNESS 08/18 Patient Education: Patient Medication Summary Completed 08/18/2015 Appointment: María Elena Appiah WPtel: [address] [place], [place] [phone] BP CHECK 07/07/2015 Patient Education: Patient Medication Summary Completed 07/07/2015 Appointment: María Elena Appiah WPtel: [address] [place] [address] BP CHECK 06/24/2015 Patient Education: Patient Medication Summary Completed 06/24/2015 Appointment: María Elena Appiah WPtel: [address] [place] [address] BP CHECK 06/21/2015 Patient Education: Patient Medication Summary Completed 06/21/2015 Visit Plan: Lab discussed Continue pipere nt meds and lifestyle modification Recheck lab in 6mos 06/16/2015 Appointment: María Elena Appiah WPtel: [address] [place] [address] 06/15 confirmed FOLLOW UP 06/16/2015 Patient Education: Patient Medication Summary Completed 06/16/2015 Patient Education: Patient Medication Summary Completed 06/15/2015 Visit Plan: Increase cymbalta to 60mg q HS Keep clonidine at current dose Recheck 2weeks Change xanax to klonopin 06/02/2015 Appointment: María Elena Appiah WPtel: [address] [place], [place] [phone] 06/02 lm FOLLOW UP 06/02/2015 Patient Education: Patient Medication Summary Completed 06/02/2015 Appointment: María Elena Appiah WPtel: [address] [place] [address] ACUTE ILLNESS 05/24/2015 Visit Plan: Increase clonidine to 0.2mg q HS Add cymbalta 30mg q HS Recheck 2weeks Stress Reducers Check fasting lab Discussed sleep study 05/20/2015 Appointment: María Elena Appiah WPtel: [address] [place] [address] ACUTE ILLNESS 05/20/2015 Patient Education: Patient Medication Summary Completed 05/20/2015 Patient Education: [facility] - [employer] - Cymbalta - 18-64 - Dynamic Portal ID Completed 05/20/2015 Appointment: María Elena Appiah WPtel: [address] [place] [address] BP CHECK 05/19/2015 Patient Education: Patient Medication Summary Completed 05/19/2015 Visit Plan: Topical Bactroban alternatin g with topical betamethasone Recheck 2weeks 05/10/2015 Appointment: María Elena Appiah WPtel: [address] [place] [address] 05/07 cn...05/07 appt confirmed OFFICE SURGER Y 05/10/2015 Patient Education: Patient Medication Summary Completed 05/10/2015 Referral: Patrick Chandler WPtel: [address] Referral Initiated 05/04/2015 Visit Plan: Saline nasal flushes prn. Ty lenol/Motrin prn headache. Notify if persists/symptoms worsening. Depomedrol 40mg IM today 03/16/2015 Appointment: María Elena Appiah WPtel: [address] [place] [address] ACUTE ILLNESS 03/16/2015 Patient Education: Patient Medication Summary Completed 03/16/2015 Appointment: María Elena Appiah WPtel: [address] [place] [address] ER Follow UP 03/09/2015 Visit Plan: Cryotherapy to lesions as ab ove 10/27/2014 Appointment: María Elena Appiah WPtel: [address] [place] [address] OFFICE SURGERY 10/27/2014 Patient Education: Patient Medication Summary Completed 10/27/2014 Appointment: June Flores WPtel: [address] [place] [address] ACUTE ILLNESS 09/11/2014 Patient Education: Patient Medication Summary Completed 09/11/2014 Visit Plan: Lab discussed Lipitor 10mg d aily Coenzyme Q-10 400mg daily Vitamin D3 5000u daily Recheck lipids with LFTs in 3mos then fwup 08/31/2014 Appointment: María Elena Appiah WPtel: [address] [place] [address] 08/28 voicemail FOLLOW UP 08/31/2014 Patient Education: Patient Medication Summary Completed 08/31/2014 Appointment: María Elena Appiah WPtel: [address] [place] [address] US LAB 08/27/2014 Appointment: María Elena Appiah WPtel: [address] [place], [place] [phone] [place] LAB 08/27/2014 Patient Education: Patient Medication Summary Completed 08/27/2014 Appointment: María Elena Appiah WPtel: [address] [place] [address] ACUTE ILLNESS 07/23/2014 Appointment: María Elena Appiah WPtel: [address] [place] [address] ACUTE ILLNESS 07/21/2014 Patient Education: Patient Medication Summary Completed 07/21/2014 Visit Plan: Kenalog 40mg IM today Contin ue narendra and singulair Add Flonase 07/15/2014 Appointment: María Elena Appiah WPtel: [address] [place], [place] [phone] ACUTE ILLNESS 07/15/2014 Appointment: María Elena Appiah WPtel: [address] [place], [place] [phone] ACUTE ILLNESS 07/15/2014 Patient Education: Patient Medication Summary Completed 07/15/2014 Visit Plan: Will do metolazone 2.5mg prn with 6 potassium and see if causes as severe cramping Trial of of seroquel XR 50mg q PM with evening meal and let us know how works 05/18/2014 Appointment: María Elena Appiah WPtel: [address] [place], [place] [phone] 05/15 left message FOLLOW UP 05/18/2014 Patient Education: Patient Medication Summary Completed 05/18/2014 Appointment: María Elena Appiah WPtel: [address] [place], [place] [phone] LAB 05/14/2014 Patient Education: Patient Medication Summary Completed 05/14/2014 Appointment: María Elena Appiah WPtel: [address] [place], [place] [phone] US INJECTION 04/22/2014 Visit Plan: Nimco today a nd finish abx given from urgent care 04/21/2014 Appointment: María Elena Appiah WPtel: [address] [place], [place] [phone] [place] INJECTION 04/21/2014 Patient Education: Patient Medication Summary Completed 04/21/2014 Appointment: June Flores WPtel: [address] [place], [place] [phone] ACUTE ILLNESS 03/04/2014 Patient Education: Patient Medication Summary Completed 03/04/2014 Appointment: María Elena Appiah WPtel: [address] [place], [place] [phone] US INJECTION 02/27/2014 Patient Education: Patient Medication Summary Completed 02/27/2014 Visit Plan: Cryotherapy as above to all lesions Patient wants to try no meds for insomnia for a while and see how goes 01/13/2014 Appointment: María Elena Appiah WPtel: [address] [place] [address] OFFICE SURGERY 01/13/2014 Patient Education: Patient Medication Summary Completed 01/13/2014 Visit Plan: Stop Melatonin Stop Soma Tri al of trazadone 75mg q HS See ENT for possible tubes as has had chronic ETD and serous otitis media with numerous steroids 12/24/2013 Appointment: María Elena Appiah WPtel: [address] [place] [address] ACUTE ILLNESS 12/24/2013 Patient Education: Patient Medication Summary Completed 12/24/2013 Visit Plan: Saline nasal flushes prn. Ty lenol/Motrin prn headache. Notify if persists/symptoms worsening. 11/12/2013 Appointment: María Elena Appiah WPtel: [address] [place] [address] ACUTE ILLNESS 11/12/2013 Patient Education: Patient Medication Summary Completed 11/12/2013 Appointment: María Elena Appaih WPtel: [address] [place] [address] ACUTE ILLNESS 10/21/2013 Patient Education: Patient Medication Summary Completed 10/21/2013 Visit Plan: Sleep hygiene and sleep rout ine Melatonin 10mg q HS Support stockings and observe 09/22/2013 Appointment: María Elena Appiah WPtel: [address] [place] [address] ACUTE ILLNESS 09/22/2013 Patient Education: Patient Medication Summary Completed 09/22/2013 Appointment: June Flores WPtel: [address] [place] [address] ACUTE ILLNESS 08/27/2013 Patient Education: Patient Medication Summary Completed 08/27/2013 Visit Plan: Proceed with CT scan of head /neck Proceed with occipital nerve injections Butrans 20mcg patch weekly until can get into see Dr. Mcdonough for injections 08/04/2013 Appointment: María Elena Appiahtejaylin: [address] [place] [address] FOLLOW UP 08/04/2013 Patient Education: Patient Medication Summary Completed 08/04/2013 Visit Plan: OMT done Daily neck stretche s, moist heat Increase Celebrex to 200mg BID Add flexeril 07/23/2013 Appointment: María Elena Appiah WPtel: [address] [place] [address] 07/22 voicemail FOLLOW UP 07/23/2013 Patient Education: Patient Medication Summary Completed 07/23/2013 Appointment: María Elena Appiah WPtel: [address] [place] [address] ACUTE ILLNESS 06/23/2013 Patient Education: Patient Medication Summary Completed 06/23/2013 Appointment: María Elena Appiah WPtel: [address] [place] [address] ACUTE ILLNESS 05/26/2013 Patient Education: Patient Medication Summary Completed 05/26/2013 Visit Plan: Decrease clonidine to 0.1mg TID If BP remains stable consider decreasing amlodopine Prednisone for 5 days BP check in 1mo 04/16/2013 Appointment: María Elena Appiah WPtel: [address] [place] [address] 04/14 pt called and confirmed appt FOLLOW UP 04/16/2013 Patient Education: Patient Medication Summary Completed 04/16/2013 Appointment: María Elena Appiah WPtel: [address] [place] [address] ACUTE ILLNESS 03/05/2013 Patient Education: Patient Medication Summary Completed 03/05/2013 Visit Plan: Pt has MARIA ELENA on with Dr. Sharonda Matthews patch Refill Hydrocodone early tomorrow 12/23/2012 Appointment: María Elena Appiah WPtel: [address] [place] [address] FOLLOW UP 12/23/2012 Patient Education: Patient Medication Summary Completed 12/23/2012 Appointment: Lashawn Eckert WPtel: [address] [place] [address] ACUTE ILLNESS 12/16/2012 Patient Education: Patient Medication Summary Completed 12/16/2012 Visit Plan: Proceed with updated MRI of LS spine Continue gabapentin and add soma and diclofenac Will likely need to go for another epidural 12/09/2012 Appointment: María Elena Appiah WPtel: [address] [place] [address] ACUTE ILLNESS 12/09/2012 Patient Education: Patient Medication Summary Completed 12/09/2012 Visit Plan: Injection as above Finish me drol dose pack Chiropracter this afternoon 12/04/2012 Appointment: María Elena Appiah WPtel: [address] [place] [address] ACUTE ILLNESS 12/04/2012 Patient Education: Patient Medication Summary Completed 12/04/2012 Appointment: Mary Tillman WPtel: [address] [place] [address] FOLLOW UP 11/22/2012 Patient Education: Patient Medication Summary Completed 11/22/2012 Appointment: María Elena Appiah WPtel: [address] [place] [address] ACUTE ILLNESS 11/21/2012 Patient Education: Patient Medication Summary Completed 11/21/2012 Appointment: María Elena Appiah WPtel: [address] [place] [address] BP CHECK 11/07/2012 Patient Education: Patient Medication [...] BP re-check. 10/29/2012 Appointment: Lashawn Eckert WPtel: [address] [place], [place] [phone] ACUTE ILLNESS 10/29/2012 Patient Education: Patient Medication Summary Completed 10/29/2012 Appointment: María Elena Appiah WPtel: [address] [place], [place] [phone] ACUTE ILLNESS 10/14/2012 Patient Education: Patient Medication Summary Completed 10/14/2012 Appointment: María Elena Appiah WPtel: [address] [place], [place] [phone] UA 09/27/2012 Patient Education: Patient Medication Summary Completed 09/27/2012 Appointment: María Elena Appiah WPtel: [address] [place], [place] [phone] ACUTE ILLNESS 09/25/2012 Patient Education: Patient Medication Summary Completed 09/25/2012 Appointment: María Elena Appiah WPtel: [address] [place] [address] BP CHECK 09/24/2012 Appointment: María Elena Appiah WPtel: [address] [place] [address] ACUTE ILLNESS 08/29/2012 Patient Education: Patient Medication Summary Completed 08/29/2012 Visit Plan: Cryotherapy as above See Karlos m for right ear lesion--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 ACUTE ILLNESS 05/06/2012 Patient Education: Patient Medication Summary Completed 05/06/2012 Visit Plan: Pt wants to hold on any furt her sleep medications 04/03/2012 Appointment: María Elena Appiahtel: [address] [place] [address] FOLLOW UP 04/03/2012 Patient Education: Patient Medication Summary Completed 04/03/2012 Appointment: María Elena Appiahtel: [address] [place] [address] FOLLOW UP 03/19/2012 Patient Education: Patient Medication Summary Completed 03/19/2012 Appointment: María Elena Appiahtel: [address] [place] [address] BP CHECK 02/22/2012 Patient Education: Patient Medication Summary Completed 02/22/2012 Appointment: María Elena Appiahtel: [address] [place] [address] BP CHECK 02/21/2012 Patient Education: Patient Medication Summary Completed 02/21/2012 Visit Plan: Doxycycline and bactroban fo r foot Supportive care on ankles and knees Add norvasc for BP 02/20/2012 Appointment: María Elena Appiahtel: [address] [place] [address] ER Follow UP 02/20/2012 Patient Education: Patient Medication Summary Completed 02/20/2012 Appointment: María Elena Appiahtel: [address] [place] [address] ACUTE ILLNESS 01/30/2012 Patient Education: Patient Medication Summary Completed 01/30/2012 Appointment: María Elena Appiahtel: [address] [place] [address] ACUTE ILLNESS 01/24/2012 Patient Education: Patient Medication Summary Completed 01/24/2012 Visit Plan: Daily back stretches, moist heat, Biofreeze prn OMT done 01/10/2012 Appointment: María Elena Appiah WPtel: [address] [place] [address] ACUTE ILLNESS 01/10/2012 Patient Education: Patient Medication Summary Completed 01/10/2012 Appointment: María Elena Appiahtel: [address] [place] [address] FOLLOW UP 12/11/2011 Patient Education: Patient Medication Summary Completed 12/11/2011 Appointment: María Elena Appiah WPtel: [address] [place] [address] ACUTE ILLNESS 11/09/2011 Patient Education: Patient Medication Summary Completed 11/09/2011 Appointment: María Elena Appiahtel: [address] [place] [address] ACUTE ILLNESS 09/13/2011 Patient Education: Patient Medication Summary Completed 09/13/2011 Visit Plan: Check CBC, TSH, Free T4, CMP , ESR, Vit D, B12 now Start Prednisone today 08/31/2011 Appointment: María Elena Appiah WPtel: [address] [place] [address] ACUTE ILLNESS 08/31/2011 Patient Education: Patient Medication Summary Completed 08/31/2011 Appointment: María Elena Appiahtel: [address] [place] [address] US INJECTION 07/20/2011 Patient Education: Patient Medication Summary Completed 07/20/2011 Visit Plan: Continue current meds Monite r BP Cont stretches from PT 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 07/06/2011 Appointment: María Elena Appiahtel: [address] [place] [address] FOLLOW UP 07/06/2011 Patient Education: Patient Medication Summary Completed 07/06/2011 Appointment: María Elena Appiahtel: [address] [place] [address] US BP CHECK 06/06/2011 Patient Education: Patient Medication Summary Completed 06/06/2011 Visit Plan: Add Bystolic at 2.5mg QAM Ad d Robaxin 750mg 2 po q HS BP check in 2wks 05/22/2011 Appointment: María Elena Appiah WPtel: [address] [place], [place] [phone] FOLLOW UP 05/22/2011 Patient Education: Patient Medication Summary Completed 05/22/2011 Appointment: María Elena Appiah WPtel: [address] [place] [address] ER Follow UP 05/09/2011 Patient Education: Patient Medication Summary Completed 05/09/2011 Appointment: María Elena Appiah WPtel: [address] [place] [address] FOLLOW UP 02/22/2011 Visit Plan: Rx written for Hydrocodone 1 0/325mg #240 See Ortho 02/14/2011 Appointment: María Elena Appiah WPtel: [address] [place] [address] OMT 02/14/2011 Patient Education: Patient Medication Summary [...] work. 02/03/2011 Appointment: Lashawn Eckert WPtel: [address] [place], [place] [phone] ACUTE ILLNESS 02/03/2011 Patient Education: Patient Medication Summary Completed 02/03/2011 Visit Plan: OMT done Cont daily stretche s 01/31/2011 Appointment: María Elena Appiah WPtel: [address] [place] [address] ACUTE ILLNESS 01/31/2011 Patient Education: Patient Medication Summary Completed 01/31/2011 Visit Plan: Continue pain meds OMT done Proceed with PT No work this summer01/25/2011 Appointment: María Elena Appiah WPtel: [address] [place] [address] ACUTE ILLNESS 01/25/2011 Patient Education: Patient Medication Summary Completed 01/25/2011 Visit Plan: Start PT Long discussion abo ut getting pain meds from only [facility] and can only have max of 4grams of tylenol per day Change to Hydrocodone 10/325mg 1- 2 po TID prn pain--#180 called to [place] 01/18/2011 Appointment: María Elena Appiah WPtel: [address] [place] [address] FOLLOW UP 01/18/2011 Patient Education: Patient Medication Summary Completed 01/18/2011 Visit Plan: Daily back stretches, moist heat, Biofreeze prn 11/29/2010 Appointment: María Elena Appiah WPtel: [address] [place] [address] ER Follow UP 11/29/2010 Patient Education: Patient Medication Summary Completed 11/29/2010 Visit Plan: Saline nasal flushes prn. Ty lenol/Motrin prn headache. Notify if persists/symptoms worsening. Finish augmentin Add Medrol Dose Pack 10/10/2010 Appointment: María Elena Appiah WPtel: [address] [place] [address] ACUTE ILLNESS 10/10/2010 Patient Education: Patient Medication Summary Completed 10/10/2010 Visit Plan: Cryotherapy x3 to multiple l esions on both forearms 07/19/2010 Appointment: María Elena Appiah WPtel: [address] [place] [address] OFFICE SURGERY 07/19/2010 Patient Education: Patient Medication Summary Completed 07/19/2010 Appointment: María Elena Appiah WPtel: [address] [place] [address] BP CHECK 07/06/2010 Patient Education: Patient Medication Summary Completed 07/06/2010 Appointment: María Elena Appiah WPtel: [address] [place] [address] BP CHECK 06/30/2010 Patient Education: Patient Medication Summary Completed 06/30/2010 Appointment: María Elena Appiah WPtel: [address] [place] [address] BP CHECK 06/20/2010 Patient Education: Patient Medication Summary Completed 06/20/2010 Visit Plan: Change Diovan to Exforge 160 /5mg QD OMT done to thoracics BP check in 2wks 06/07/2010 Appointment: María Elena Appiah WPtel: [address] [place] [address] FOLLOW UP 06/07/2010 Patient Education: Patient Medication Summary Completed 06/07/2010 Appointment: María Elena Appiahtel: [address] [place] [address] BP CHECK 06/03/2010 Patient Education: Patient Medication Summary Completed 06/03/2010 Appointment: María Elena Appiahtel: [address] [place] [address] BP CHECK 06/01/2010 Patient Education: Patient Medication Summary Completed 06/01/2010 Visit Plan: Irritated skin tags to left neck x2 excised at base with scissors and base cauterized 05/30/2010 Appointment: María Elena Appiah WPtel: [address] [place] [address] OFFICE SURGERY 05/30/2010 Patient Education: Patient Medication Summary Completed 05/30/2010 Visit Plan: Saline nasal flushes prn. Ty lenol/Motrin prn headache. Notify if persists/symptoms worsening. Restart Nasonex Has allergy testing set for May 15 04/27/2010 Appointment: María Elena Appiahtel: [address] [place] [address] ACUTE ILLNESS 04/27/2010 Patient Education: Patient Medication Summary Completed 04/27/2010 Visit Plan: Saline nasal flushes prn. Ty lenol/Motrin prn headache. Notify if persists/symptoms worsening. Omnaris BID plus injections 04/05/2010 Appointment: María Elena Appiah WPtel: [address] [place] [address] ACUTE ILLNESS 04/05/2010 Patient Education: Patient Medication Summary Completed 04/05/2010 Visit Plan: Saline nasal flushes prn. Ty lenol/Motrin prn headache. Notify if persists/symptoms worsening. 03/09/2010 Appointment: María Elena Appiahtel: [address] [place] [address] ACUTE ILLNESS 03/09/2010 Patient Education: Patient Medication Summary Completed 03/09/2010 Visit Plan: Cont Clonidine as is Cont Pr emarin Fwup with surgery as scheduled 03/03/2010 Appointment: María Elena Appiahtel: [address] [place] [address] FOLLOW UP 03/03/2010 Patient Education: Patient Medication Summary Completed 03/03/2010 Visit Plan: Check Pelvic US now [facility] Sal C vs Hysterectomy 01/17/2010 Appointment: María Elena Appiahtel: [address] [place] [address] ACUTE ILLNESS 01/17/2010 Patient Education: Patient Medication Summary Completed 01/17/2010 Visit Plan: Check fasting lab and schedu le Mammogram 2gm Na Diet Trial of Ambien 10mg qhs Fwup pending lab results 12/27/2009 Appointment: María Elena Appiahtel: [address] [place] [address] ESTABLISHED PATIENT 12/27/2009 Patient Education: Patient Medication Summary Completed 12/27/2009 Referral: Canelo Overton WPtel: [phone] [id number] [place] Referral Initiated Referral: Philipp Flores WPtel: [address] [id number] [place] Referral Appointment Requested Instructions Comment . [...]
--- OUTSIDE RECORDS SUMMARY | 2020-03-13 05:51 | XMS REPORT | CCD ---
Author Author Gale Appiah D.O. Organization [facility] Address [address] [place] [id number] Phone Care Team Providers Care Learning Administrator Name Role Phone María Elena Appiah D.O., PP Unavailable CCM Unavailable Summary Purpose Interface Exchange Insurance Providers Payer name Policy type / Coverage type Covered green party ID Effective Begin Date Effective End Date [facility] Commercial Insurance [id number] Unknown Family History Family History data not found Social History Social History Element Codes Description Effective Dates Tobacco history SNOMED CT: [id number] Never smoker 05/22/2011 Allergies, Adverse Reactions, Alerts [...] Instructions duloxetine 60 mg capsule,delayed release RxNorm: 663556 1 Capsu le(s) Oral QD 10/17/2019 04/13/2020 Active celecoxib 200 mg capsule RxNorm: 488585 1 Capsule(s) Or al two times a day as needed for pain 10/17/2019 01/14/2020 Active lisinopril 20 mg tablet RxNorm: 498171 1 Tablet(s) Oral QD 10/17/19 20 04/13/2020 Active gabapentin 300 mg capsule RxNorm: 948840 1 Capsule(s) O ral every night at bedtime 10/17/2019 01/15/2020 Active Singulair 10 mg tablet RxNorm: 385125 1 Tablet(s) Oral QD 10/17/2019 04/14/2020 Active Klor-Con 8 mEq tablet,extended release RxNorm: 363065 1 Tablet(s) Oral two times a day 10/17/2019 11/16/2019 Active metoprolol tartrate 100 mg tablet RxNorm: 283310 1 Tabl et(s) Oral two times a day 10/17/2019 04/13/2020 Active clonidine HCl 0.1 mg tablet RxNorm: 448450 1 Tablet(s) Oral fou r times a day 10/17/2019 04/13/2020 Active Januvia 100 mg tablet RxNorm: 111415 1 Tablet(s) Oral QD 10/17/2019 No Stop Date Active Lipitor 10 mg tablet RxNorm: 731727 1 Tablet(s) Oral QD 10/17/2019 Active Steglatro 15 mg tablet RxNorm: 4852091 1 Tablet(s) Oral QD 10/17/19 No Stop Date Active Glyxambi 25 mg-5 mg tablet RxNorm: 8050381 1 Tablet(s) Oral QD 01/202010/16/2019 Inactive Patient will bring in copay discount card as well Glyxambi 25 mg-5 mg tablet RxNorm: 5752720 1 Tablet(s) Oral QD 01/202010/14/2019 Inactive Patient will bring in copay discount card as well Keflex 500 mg capsule RxNorm: 756344 1 Capsule(s) Oral two time s a day 10/07/2019 10/14/2019 Inactive Premarin 1.25 mg tablet RxNorm: 367123 1 Tablet(s) Oral QD 09/30/1906/25/2020 Active hydrocodone 10 mg-acetaminophen 325 mg tablet RxNorm: 696219 1-2 Tablet(s) Oral three times a day as needed for pain 09/30/2019 09/30/2019 Inactive baclofen 10 mg tablet RxNorm: 961762 TAKE ONE TABLET BY MOUTH THREE TIMES A DAY NEEDED 09/19/2019 No Stop Date Active gabapentin 300 mg capsule RxNorm: 602464 TAKE ONE CAPSU LE BY MOUTH EVERY NIGHT AT BEDTIME 09/19/2019 10/16/2019 Inactive Klor-Con 8 mEq tablet,extended release RxNorm: 596454 T FARRUKH ONE TABLET BY MOUTH TWICE A DAY 1 Tablet(s) Oral two times a day 09/19/2019 10/16/2019 [facility] hydrocodone 10 mg-acetaminophen 325 mg tablet RxNorm: 748822 1-2 Tablet(s) Oral three times a day as needed for pain 09/19/2019 09/29/2019 Inactive triamterene 75 mg-hydrochlorothiazide 50 mg tablet RxNorm: 3 80220 TAKE ONE TABLET BY MOUTH DAILY 09/11/2019 No Stop Date Active allopurinol 300 mg tablet RxNorm: 389157 TAKE ONE TABLET BY LOPEZ TH DAILY 09/11/2019 No Stop Date Active duloxetine 60 mg capsule,delayed release RxNorm: 272666 TAKE ONE CAPSULE BY MOUTH DAILY 09/11/2019 10/16/2019 Inactive Lipitor 10 mg tablet RxNorm: 365722 TAKE ONE TABLET BY MOUTH AT BEDTIME 09/11/2019 10/16/2019 Inactive lisinopril 20 mg tablet RxNorm: 251595 TAKE ONE TABLET BY MOUTH DAILY .... THIS REPLACE 10MG TABLETS 09/11/2019 10/16/2019 Inactive celecoxib 200 mg capsule RxNorm: 343667 TAKE ONE CAPSUL E BY MOUTH TWICE A DAY NEEDED FOR PAIN 09/11/2019 10/16/2019 Inactive clonidine HCl 0.1 mg tablet RxNorm: 007943 TAKE ONE TAB LET BY MOUTH FOUR TIMES A DAY 09/11/2019 10/16/2019 Inactive doxepin 25 mg capsule RxNorm: 7868977 1 Capsule(s) Oral every night at bedtime as needed for sleep 08/21/2019 11/18/2019 Active hydrocodone 10 mg-acetaminophen 325 mg tablet RxNorm: 370137 1-2 Tablet(s) PO TID 08/12/2019 09/29/2019 Inactive as needed for pa in - Previous quantity #240, will start dosing for #180 in April 2011 per Doctor Td. Medrol (Dustin) 4 mg tablets in a dose pack RxNorm: 760576 Tablet(s) Oral As Directed 07/21/2019 09/29/2019 Inactive Premarin 1.25 mg tablet RxNorm: 473240 1 Tablet(s) Oral QD 07/02/20 19 09/29/2019 Inactive hydrocodone 10 mg-acetaminophen 325 mg tablet RxNorm: 290962 1-2 Tablet(s) PO TID 07/01/2019 08/11/2019 Inactive as needed for pa in - Previous quantity #240, will start dosing for #180 in April 2011 per Doctor Td. gabapentin 300 mg capsule RxNorm: 455765 1 Capsule(s) PO QHS 201809/18/2019 Inactive celecoxib 200 mg capsule RxNorm: 511239 1 Capsule(s) Or al two times a day as needed for pain 06/27/2019 06/27/2019 Inactive furosemide 40 mg tablet RxNorm: 561244 TAKE ONE TABLET BY MOUTH EVERY MORNING NEEDED FOR EDEMA . TAKE WITH POTASSIUM 06/24/2019 No Stop Date Active doxepin 25 mg capsule RxNorm: 9852267 TAKE ONE CAPSULE B Y MOUTH EVERY NIGHT AT BEDTIME NEEDED FOR SLEEP 06/24/2019 08/20/2019 Inactive Singulair 10 mg tablet RxNorm: 841603 TAKE ONE TABLET BY MOUTH JOSÉ Y 06/24/2019 10/16/2019 Inactive lisinopril 20 mg tablet RxNorm: 343261 TAKE ONE TABLET BY MOUTH DAILY .... THIS REPLACE 10MG TABLETS 06/24/2019 09/10/2019 Inactive nystatin-triamcinolone 100,000 unit/g-0.1 % topical cream Rx Norm: 7149697 1 Application Topical two times a day 06/12/2019 06/19/2019 Inactive apply BID for 1 week nystatin-triamcinolone 100,000 unit/g-0.1 % topical cream Rx Norm: 0630017 1 Application Topical two times a day 06/12/2019 06/11/2019 Inactive apply BID for 1 week hydrocodone 10 mg-acetaminophen 325 mg tablet RxNorm: 306714 1-2 Tablet(s) PO QID as needed for pain MUST LAST 30 DAYS 05/28/2019 06/26/2019 Inactiv e (Response to an electronic controlled substance refill request - RxReferenceNumber: [id number]) baclofen 20 mg tablet RxNorm: 859669 1 Tablet(s) PO TID as needed for muscle spasm 05/19/2019 05/27/2019 Inactive gabapentin 300 mg capsule RxNorm: 640992 1 Capsule(s) PO QHS 201805/27/2019 Inactive lisinopril 20 mg tablet RxNorm: 198347 1 Tablet(s) PO Q D TAKE ONE TABLET BY MOUTH DAILY, REPLACES 10 MG DOSE 05/19/2019 06/23/2019 Inactive doxepin 25 mg capsule RxNorm: 6198115 TAKE ONE CAPSULE B Y MOUTH EVERY NIGHT AT BEDTIME NEEDED FOR SLEEP 05/16/2019 06/14/2019 Inactive lisinopril 20 mg tablet RxNorm: 654280 TAKE ONE TABLET BY MOUTH DAILY, REPLACES 10 MG DOSE 05/16/2019 05/18/2019 Inactive Singulair 10 mg tablet RxNorm: 723849 TAKE ONE TABLET BY MOUTH JOSÉ Y 05/16/2019 06/14/2019 Inactive gabapentin 300 mg capsule RxNorm: 218626 1 Capsule(s) PO QHS 201805/04/2019 Inactive estropipate 1.5 mg tablet RxNorm: 355971 1 Tablet(s) PO QD 05/05/2005/27/2019 Inactive estropipate 1.5 mg tablet RxNorm: 930649 1 Tablet(s) PO QD 05/05/20 19 05/04/2019 Inactive gabapentin 300 mg capsule RxNorm: 949711 1 Capsule(s) PO QHS 201805/18/2019 Inactive hydrocodone 10 mg-acetaminophen 325 mg tablet RxNorm: 205043 1-2 Tablet(s) PO QID as needed for pain MUST LAST 30 DAYS 04/25/2019 05/24/2019 Inactiv e (Response to an electronic controlled substance refill request - RxReferenceNumber: [id number]) cyclobenzaprine 10 mg tablet RxNorm: 896508 TAKE ONE TA BLET BY MOUTH THREE TIMES A DAY NEEDED FOR MUSCLE SPASMS 04/24/2019 05/18/2019 Inactive metoprolol tartrate 100 mg tablet RxNorm: 424712 TAKE O NE TABLET BY MOUTH TWICE A DAY 04/24/2019 10/16/2019 Inactive Lyrica 75 mg capsule RxNorm: 171364 1 Capsule(s) PO QHS 03/25/2019 Inactive duloxetine 60 mg capsule,delayed release RxNorm: 989981 TAKE ONE CAPSULE BY MOUTH DAILY 03/21/2019 05/19/2019 Inactive triamterene 75 mg-hydrochlorothiazide 50 mg tablet RxNorm: 3 84191 TAKE ONE TABLET BY MOUTH DAILY 03/21/2019 05/19/2019 Inactive Klor-Con 8 mEq tablet,extended release RxNorm: 257425 T FARRUKH ONE TABLET BY MOUTH TWICE A DAY 03/21/2019 09/18/2019 Inactive Lipitor 10 mg tablet RxNorm: 865921 TAKE ONE TABLET BY MOUTH AT BEDTIME 03/21/2019 09/10/2019 Inactive clonidine HCl 0.1 mg tablet RxNorm: 696615 TAKE ONE TAB LET BY MOUTH FOUR TIMES A DAY 03/21/2019 05/19/2019 Inactive allopurinol 300 mg tablet RxNorm: 807202 TAKE ONE TABLET BY LOPEZ TH DAILY 03/21/2019 05/19/2019 Inactive hydrocodone 10 mg-acetaminophen 325 mg tablet RxNorm: 020045 1-2 Tablet(s) PO QID as needed for pain MUST LAST 30 DAYS 02/28/2019 03/29/2019 Inactiv e (Response to an electronic controlled substance refill request - [facility]: [id number]) furosemide 40 mg tablet RxNorm: 413059 TAKE ONE TABLET BY MOUTH EVERY MORNING NEEDED FOR EDEMA . TAKE WITH POTASSIUM 02/21/2019 03/22/2019 Inactive cyclobenzaprine 10 mg tablet RxNorm: 521394 TAKE ONE TA BLET BY MOUTH THREE TIMES A DAY NEEDED FOR MUSCLE SPASMS 02/21/2019 04/21/2019 Inactive lisinopril 20 mg tablet RxNorm: 336464 TAKE ONE TABLET BY MOUTH DAILY, REPLACES 10 MG DOSE 02/21/2019 05/15/2019 Inactive doxepin 25 mg capsule RxNorm: 7525851 TAKE ONE CAPSULE B Y MOUTH EVERY NIGHT AT BEDTIME NEEDED FOR SLEEP 02/21/2019 05/15/2019 Inactive nystatin 100,000 unit/gram topical cream RxNorm: 922324 APPLY TO AFFECTED AREA(S) TWO TIMES A DAY 02/21/2019 03/22/2019 Inactive estradiol 1 mg tablet RxNorm: 696563 2 Tablet(s) PO QD replaces premarin 01/22/2019 05/04/2019 Inactive lisinopril 20 mg tablet RxNorm: 263603 TAKE ONE TABLET BY MOUTH DAILY, REPLACES 10 MG DOSE 01/20/2019 02/18/2019 Inactive cyclobenzaprine 10 mg tablet RxNorm: 074267 TAKE ONE TA BLET BY MOUTH THREE TIMES A DAY NEEDED FOR MUSCLE SPASMS 01/20/2019 02/18/2019 Inactive metoprolol tartrate 100 mg tablet RxNorm: 183679 TAKE O NE TABLET BY MOUTH TWICE A DAY 01/20/2019 02/18/2019 Inactive cyclobenzaprine 10 mg tablet RxNorm: 995756 TAKE ONE TA BLET BY MOUTH THREE TIMES A DAY NEEDED FOR MUSCLE SPASMS 12/19/2018 01/17/2019 Inactive lisinopril 20 mg tablet RxNorm: 797758 TAKE ONE TABLET BY MOUTH DAILY, REPLACES 10 MG DOSE 12/19/2018 01/17/2019 Inactive duloxetine 60 mg capsule,delayed release RxNorm: 752006 TAKE ONE CAPSULE BY MOUTH DAILY 12/19/2018 01/17/2019 Inactive Lipitor 10 mg tablet RxNorm: 167193 TAKE ONE TABLET BY MOUTH AT BEDTIME 12/19/2018 01/17/2019 Inactive cyclobenzaprine 10 mg tablet RxNorm: 991840 1 Tablet(s) PO TID as needed for muscle spasm 11/19/2018 12/18/2018 Inactive Singulair 10 mg tablet RxNorm: 073392 1 Tablet(s) PO QD 11/19/2018 Inactive lisinopril 20 mg tablet RxNorm: 365840 TAKE ONE TABLET BY MOUTH DAILY, REPLACES 10 MG DOSE 11/15/2018 12/18/2018 Inactive hydrocodone 10 mg-acetaminophen 325 mg tablet RxNorm: 796281 1-2 Tablet(s) PO QID as needed for pain MUST LAST 30 DAYS 11/13/2018 12/12/2018 Inactiv e (Response to an electronic controlled substance refill request - RxReferenceNumber: [id number]) nystatin 100,000 unit/gram topical cream RxNorm: 781124 APPLY TO AFFECTED AREA(S) TWO TIMES A DAY 10/23/2018 11/06/2018 Inactive lisinopril 20 mg tablet RxNorm: 958572 1 Tablet(s) PO QD replac es 10mg dose 10/18/2018 11/14/2018 Inactive hydrocodone 10 mg-acetaminophen 325 mg tablet RxNorm: 068029 1-2 Tablet(s) QID as needed for pain MUST LAST 30 DAYS 10/08/2018 11/06/2018 Inactive (Response to an electronic controlled substance refill request - RxReferenceNumber: [id number]) lisinopril 10 mg tablet RxNorm: 434851 1 Tablet(s) PO QD 10/03/2018 0 01/21/2019 Inactive Celebrex 200 mg capsule RxNorm: 006408 TAKE ONE CAPSULE BY MOUT H TWICE A DAY 09/30/2018 05/04/2019 Inactive cyclobenzaprine 10 mg tablet RxNorm: 682513 TAKE ONE TA BLET BY MOUTH THREE TIMES A DAY NEEDED FOR MUSCLE SPASMS 09/30/2018 11/18/2018 Inactive doxepin 25 mg capsule RxNorm: 2032427 TAKE ONE CAPSULE B Y MOUTH EVERY NIGHT AT BEDTIME NEEDED 09/05/2018 10/16/2018 Inactive omeprazole 40 mg capsule,delayed release RxNorm: 889359 TAKE ONE CAPSULE BY MOUTH DAILY 09/05/2018 01/21/2019 Inactive furosemide 40 mg tablet RxNorm: 178188 TAKE ONE TABLET BY MOUTH EVERY MORNING NEEDED FOR EDEMA . TAKE WITH POTASSIUM 09/05/2018 11/03/2018 Inactive phentermine 37.5 mg tablet RxNorm: 203330 1 Tablet(s) PO QAM 201701/21/2019 Inactive doxepin 25 mg capsule RxNorm: 7213211 1 Capsule(s) PO QH S as needed for sleep TAKE ONE CAPSULE BY MOUTH EVERY NIGHT AT BEDTIME NEEDED 08/27/2018 09/04/2018 Inactive Keflex 500 mg capsule RxNorm: 450074 1 Capsule(s) PO TID 08/09/2018 1 10/19/2017 Inactive Diflucan 100 mg tablet RxNorm: 524615 1 Tablet(s) PO QD 08/09/2018 Inactive Premarin 1.25 mg tablet RxNorm: 348000 2 Tablet(s) PO QD 08/09/2018 0 05/04/2019 Inactive Zofran ODT 4 mg disintegrating tablet RxNorm: 001296 1 Tablet(s) PO Q4H as needed for nausea 08/09/2018 01/21/2019 Inactive metoprolol tartrate 100 mg tablet RxNorm: 056870 TAKE O NE TABLET BY MOUTH TWICE A DAY 2018 10/04/2018 Inactive doxepin 25 mg capsule RxNorm: 1799941 TAKE ONE CAPSULE B Y MOUTH EVERY NIGHT AT BEDTIME NEEDED 2018 08/26/2018 Inactive cyclobenzaprine 10 mg tablet RxNorm: 869670 TAKE ONE TA BLET BY MOUTH THREE TIMES A DAY NEEDED FOR MUSCLE SPASMS 2018 09/29/2018 Inactive hydrocodone 10 mg-acetaminophen 325 mg tablet RxNorm: 696768 1-2 Tablet(s) QID as needed for pain MUST LAST 30 DAYS 07/29/2018 08/27/2018 Inactive (Response to an electronic controlled substance refill request - RxReferenceNumber: [id number]) nystatin 100,000 unit/gram topical powder RxNorm: 752399 Applic ation TOP BID 07/22/2018 08/04/2018 Inactive doxepin 25 mg capsule RxNorm: 8522250 1 Capsule(s) PO QHS as needed 07/22/2018 08/05/2018 Inactive triamterene 75 mg-hydrochlorothiazide 50 mg tablet RxNorm: 3 02272 TAKE ONE TABLET BY MOUTH DAILY 07/05/2018 10/02/2018 Inactive duloxetine 60 mg capsule,delayed release RxNorm: 331547 TAKE ONE CAPSULE BY MOUTH DAILY 07/05/2018 09/02/2018 Inactive Klor-Con 8 mEq tablet,extended release RxNorm: 314157 T FARRUKH ONE TABLET BY MOUTH TWICE A DAY 07/05/2018 10/02/2018 Inactive Lipitor 10 mg tablet RxNorm: 832893 TAKE ONE TABLET BY MOUTH AT BEDTIME 07/05/2018 09/02/2018 Inactive allopurinol 300 mg tablet RxNorm: 302408 TAKE ONE TABLET BY LOPEZ TH DAILY 07/05/2018 10/02/2018 Inactive clonidine HCl 0.1 mg tablet RxNorm: 550213 TAKE ONE TAB LET BY MOUTH FOUR TIMES A DAY 07/05/2018 10/02/2018 Inactive hydrocodone 10 mg-acetaminophen 325 mg tablet RxNorm: 723935 1-2 Tablet(s) QID as needed for pain MUST LAST 30 DAYS 06/28/2018 07/27/2018 Inactive (Response to an electronic controlled substance refill request - RxReferenceNumber: [id number]) MediHoney (calcium alginate-honey) 4" X 5" bandage RxNorm: 1 Application TOP QD 06/17/2018 06/26/2018 Inactive honey-hydrocolloid dressing 4" X 5" RxNorm: 1 Application TOP QD 06/17/2018 07/16/2018 Inactive furosemide 40 mg tablet RxNorm: 698396 TAKE ONE TABLET BY MOUTH EVERY MORNING NEEDED FOR EDEMA . TAKE WITH POTASSIUM 06/10/2018 07/09/2018 Inactive This is a refill request. hydrocodone 10 mg-acetaminophen 325 mg tablet RxNorm: 979156 1-2 Tablet(s) QID as needed for pain MUST LAST 30 DAYS 05/30/2018 06/27/2018 Inactive (Response to an electronic controlled substance refill request - RxReferenceNumber: [id number]) acyclovir 800 mg tablet RxNorm: 837804 1 Tablet(s) PO 5x day 201705/22/2018 Inactive Premarin 1.25 mg tablet RxNorm: 216138 1-2 Tablet(s) PO QD 09/01/27 1807/13/2018 Inactive cyclobenzaprine 10 mg tablet RxNorm: 450255 1 Tablet(s) PO TID as needed for muscle spasm 05/09/2018 05/08/2018 Inactive Medrol (Dustin) 4 mg tablets in a dose pack RxNorm: 171403 Tablet(s) PO As Directed 05/02/2018 06/16/2018 Inactive hydrocodone 10 mg-acetaminophen 325 mg tablet RxNorm: 246974 1-2 Tablet(s) QID as needed for pain MUST LAST 30 DAYS 04/30/2018 05/29/2018 Inactive (Response to an electronic controlled substance refill request - RxReferenceNumber: [id number]) duloxetine 60 mg capsule,delayed release RxNorm: 375871 TAKE ONE CAPSULE BY MOUTH DAILY 04/16/2018 05/15/2018 Inactive Celebrex 200 mg capsule RxNorm: 022440 TAKE ONE CAPSULE BY MOUT H TWICE A DAY 04/16/2018 06/14/2018 Inactive Singulair 10 mg tablet RxNorm: 302725 TAKE ONE TABLET BY MOUTH JOSÉ Y 04/16/2018 11/19/2018 Inactive Lipitor 10 mg tablet RxNorm: 624183 TAKE ONE TABLET BY MOUTH AT BEDTIME 04/16/2018 05/15/2018 Inactive hydrocodone 10 mg-acetaminophen 325 mg tablet RxNorm: 063142 1-2 Tablet(s) QID as needed for pain MUST LAST 30 DAYS 03/29/2018 04/27/2018 Inactive (Response to an electronic controlled substance refill request - RxReferenceNumber: [id number]) cyclobenzaprine 10 mg tablet RxNorm: 699713 1 Tablet(s) PO TID as needed for muscle spasm 03/18/2018 05/09/2018 Inactive omeprazole 40 mg capsule,delayed release RxNorm: 272215 1 Capsu le(s) PO QD 02/26/2018 08/24/2018 Inactive hydrocodone 10 mg-acetaminophen 325 mg tablet RxNorm: 122499 1-2 Tablet(s) QID as needed for pain MUST LAST 30 DAYS 02/26/2018 03/27/2018 Inactive (Response to an electronic controlled substance refill request - RxReferenceNumber: [id number]) metoprolol tartrate 100 mg tablet RxNorm: 324946 1 Tablet(s) PO BID 02/18/2018 08/05/2018 Inactive Lyrica 75 mg capsule RxNorm: 538706 1 Capsule(s) PO QHS 01/30/2018 Inactive phentermine 37.5 mg tablet RxNorm: 747162 1 Tablet(s) PO QAM 201706/16/2018 Inactive hydrocodone 10 mg-acetaminophen 325 mg tablet RxNorm: 620084 1-2 Tablet(s) QID as needed for pain MUST LAST 30 DAYS 01/29/2018 02/25/2018 Inactive (Response to an electronic controlled substance refill request - RxReferenceNumber: [id number]) Klor-Con 8 mEq tablet,extended release RxNorm: 554485 1 Tablet( s) PO BID 01/14/2018 07/04/2018 Inactive allopurinol 300 mg tablet RxNorm: 809067 1 Tablet(s) PO QD 01/15/20 18 07/04/2018 Inactive Lipitor 10 mg tablet RxNorm: 704889 1 Tablet(s) PO QHS 01/14/201812/2017 Inactive triamterene 75 mg-hydrochlorothiazide 50 mg tablet RxNorm: 3 48600 1 Tablet(s) PO QD 01/14/2018 07/04/2018 Inactive hydrocodone 10 mg-acetaminophen 325 mg tablet RxNorm: 516976 1-2 Tablet(s) QID as needed for pain MUST LAST 30 DAYS 12/27/2017 01/25/2018 Inactive (Response to an electronic controlled substance refill request - RxReferenceNumber: [id number]) Onglyza 5 mg tablet RxNorm: 881112 1 Tablet(s) PO QD 12/18/201701/29 Inactive metformin 500 mg tablet RxNorm: 978184 1 Tablet(s) PO BID 12/11/2017 12/10/2017 Inactive metformin 500 mg tablet RxNorm: 977760 1 Tablet(s) PO BID 12/11/2017 12/17/2017 Inactive furosemide 40 mg tablet RxNorm: 004559 1 Tablet(s) PO Q AM prn edema--take with potassium 12/11/2017 06/08/2018 Inactive cyclobenzaprine 10 mg tablet RxNorm: 796360 1 Tablet(s) PO TID as needed for muscle spasm 12/11/2017 03/18/2018 Inactive hydrocodone 10 mg-acetaminophen 325 mg tablet RxNorm: 394648 1-2 Tablet(s) QID as needed for pain MUST LAST 30 DAYS 10/23/2017 11/21/2017 Inactive (Response to an electronic controlled substance refill request - RxReferenceNumber: [id number]) Lipitor 10 mg tablet RxNorm: 095665 1 Tablet(s) PO QHS 10/16/201703/2018 Inactive cyclobenzaprine 10 mg tablet RxNorm: 316940 1 Tablet(s) PO TID as needed for muscle spasm 10/09/2017 12/10/2017 Inactive hydroxyzine HCl 25 mg tablet RxNorm: 500994 1 Tablet(s) PO BID as needed for anxiety 09/20/2017 01/29/2018 Inactive Effexor XR 75 mg capsule,extended release RxNorm: 178082 1 Caps ule(s) PO QD 09/20/2017 01/29/2018 Inactive metoprolol tartrate 100 mg tablet RxNorm: 574362 1 Tablet(s) PO BID 08/20/2017 02/18/2018 Inactive baclofen 20 mg tablet RxNorm: 519811 1 Tablet(s) PO TID as needed for muscle spasm 08/20/2017 01/21/2019 Inactive clonidine HCl 0.1 mg tablet RxNorm: 741934 1 Tablet(s) PO QID 08/2005/16/2018 Inactive Seroquel 25 mg tablet RxNorm: 137570 1 Tablet(s) PO QHS 08/17/2017 Inactive Seroquel 25 mg tablet RxNorm: 772820 1 Tablet(s) PO QHS 08/17/2017 Inactive Diflucan 100 mg tablet RxNorm: 460573 TAKE ONE TABLET BY MOUTH JOSÉ Y 07/25/2017 08/07/2017 Inactive hydrocodone 10 mg-acetaminophen 325 mg tablet RxNorm: 755485 1-2 Tablet(s) QID as needed for pain MUST LAST 30 DAYS 07/19/2017 08/17/2017 Inactive (Response to an electronic controlled substance refill request - RxReferenceNumber: [id number]) clindamycin 300 mg capsule RxNorm: 332660 1 Capsule(s) PO TID 07/1907/28/2017 Inactive clotrimazole-betamethasone 1 %-0.05 % topical cream RxNorm: 185554 Application TOP BID to elbow rash 07/19/2017 06/16/2018 Inactive Singulair 10 mg tablet RxNorm: 231608 Tablet(s) TAKE ONE TABLET BY MOUTH DAILY 07/18/2017 04/13/2018 Inactive triamterene 75 mg-hydrochlorothiazide 50 mg tablet RxNorm: 3 74697 1 Tablet(s) PO QD 07/18/2017 01/14/2018 Inactive Celebrex 200 mg capsule RxNorm: 145978 Capsule(s) TAKE ONE CAPSULE BY MOUTH TWICE A DAY 07/18/2017 10/15/2017 Inactive hydrocodone 10 mg-acetaminophen 325 mg tablet RxNorm: 826008 1-2 Tablet(s) QID as needed for pain MUST LAST 30 DAYS 06/19/2017 07/18/2017 Inactive (Response to an electronic controlled substance refill request - RxReferenceNumber: [id number]) hydrocodone 10 mg-acetaminophen 325 mg tablet RxNorm: 216167 1-2 Tablet(s) QID as needed for pain MUST LAST 30 DAYS 06/19/2017 06/18/2017 Inactive (Response to an electronic controlled substance refill request - RxReferenceNumber: [id number]) baclofen 20 mg tablet RxNorm: 990267 1 Tablet(s) PO TID as needed for muscle spasm 06/18/2017 08/20/2017 Inactive Medrol (Dustin) 4 mg tablets in a dose pack RxNorm: 475480 Tablet(s) PO As Directed 06/05/2017 07/18/2017 Inactive omeprazole 40 mg capsule,delayed release RxNorm: 460168 1 Capsu le(s) PO QD 04/20/2017 10/16/2017 Inactive Premarin 1.25 mg tablet RxNorm: 383042 1-2 Tablet(s) PO QD 04/11/20 17 05/15/2018 Inactive duloxetine 60 mg capsule,delayed release RxNorm: 272127 1 Capsu le(s) PO QD 04/11/2017 09/19/2017 Inactive furosemide 40 mg tablet RxNorm: 262741 1 Tablet(s) PO Q AM prn edema--take with potassium 04/11/2017 12/11/2017 Inactive Klor-Con 8 mEq tablet,extended release RxNorm: 907927 1 Tablet( s) PO BID 04/11/2017 01/14/2018 Inactive Lipitor 10 mg tablet RxNorm: 402760 1 Tablet(s) PO QHS 04/11/201702/2018 Inactive amlodipine 5 mg-benazepril 20 mg capsule RxNorm: 854848 1 Capsu le(s) PO QD 04/11/2017 01/29/2018 Inactive allopurinol 300 mg tablet RxNorm: 814764 1 Tablet(s) PO QD 04/11/20 17 01/14/2018 Inactive clonidine HCl 0.1 mg tablet RxNorm: 454488 1 Tablet(s) PO QID 04/0508/19/2017 Inactive baclofen 20 mg tablet RxNorm: 659404 1 Tablet(s) PO TID as needed for muscle spasm 04/02/2017 06/18/2017 Inactive Premarin 1.25 mg tablet RxNorm: 308509 1-2 Tablet(s) PO QD 03/20/20 17 04/10/2017 Inactive hydrocodone 10 mg-acetaminophen 325 mg tablet RxNorm: 260072 1-2 Tablet(s) QID as needed for pain MUST LAST 30 DAYS 03/14/2017 01/21/2019 Inactive (Response to an electronic controlled substance refill request - RxReferenceNumber: [id number]) metoprolol tartrate 100 mg tablet RxNorm: 031701 1 Tablet(s) PO BID 02/12/2017 08/20/2017 Inactive hydrocodone 10 mg-acetaminophen 325 mg tablet RxNorm: 895020 1-2 Tablet(s) QID as needed for pain MUST LAST 30 DAYS 02/08/2017 03/09/2017 Inactive (Response to an electronic controlled substance refill request - RxReferenceNumber: [id number]) metoprolol tartrate 100 mg tablet RxNorm: 758335 TAKE O NE TABLET BY MOUTH TWICE A DAY 01/11/2017 02/12/2017 Inactive metoprolol tartrate 100 mg tablet RxNorm: 528570 1 Tablet(s) PO BID 12/18/2016 12/17/2016 Inactive metoprolol tartrate 100 mg tablet RxNorm: 643151 1 Tablet(s) PO BID 12/18/2016 01/10/2017 Inactive furosemide 40 mg tablet RxNorm: 031611 1 Tablet(s) PO Q AM prn edema--take with potassium 12/13/2016 02/10/2017 Inactive amitriptyline 100 mg tablet RxNorm: 911914 1 Tablet(s) PO QHS 11/2812/12/2016 Inactive baclofen 20 mg tablet RxNorm: 078937 1 Tablet(s) PO TID as needed for muscle spasm 11/14/2016 04/01/2017 Inactive triamterene 75 mg-hydrochlorothiazide 50 mg tablet RxNorm: 3 33269 1 Tablet(s) PO QD 11/14/2016 11/13/2016 Inactive metolazone 2.5 mg tablet RxNorm: 161396 TAKE ONE TABLET BY MOUTH DAILY NEEDED FOR EDEMA 11/14/2016 12/12/2016 Inactive triamterene 75 mg-hydrochlorothiazide 50 mg tablet RxNorm: 3 34412 1 Tablet(s) PO QD 11/14/2016 07/18/2017 Inactive amitriptyline 50 mg tablet RxNorm: 223190 TAKE ONE TABL ET BY MOUTH AT BEDTIME NEEDED FOR SLEEP 11/14/2016 11/27/2016 Inactive Cymbalta 60 mg capsule,delayed release RxNorm: 968121 1 Capsule (s) PO QHS 11/14/2016 12/12/2016 Inactive clonidine HCl 0.1 mg tablet RxNorm: 433726 1 Tablet(s) PO QID 11/1304/04/2017 Inactive amitriptyline 50 mg tablet RxNorm: 114289 1 Tablet(s) P O QHS as needed for sleep 11/01/2016 11/27/2016 Inactive duloxetine 60 mg capsule,delayed release RxNorm: 243587 TAKE ONE CAPSULE BY MOUTH DAILY 10/20/2016 01/17/2017 Inactive allopurinol 300 mg tablet RxNorm: 799547 TAKE ONE TABLET BY LOPEZ TH DAILY 10/20/2016 01/16/2017 Inactive Lyrica 75 mg capsule RxNorm: 398039 TAKE ONE CAPSULE BY MOUTH EVERY NIGHT AT BEDTIME 10/20/2016 12/10/2016 Inactive Klor-Con 8 mEq tablet,extended release RxNorm: 565574 T FARRUKH ONE TABLET BY MOUTH TWICE A DAY 10/20/2016 01/17/2017 Inactive Celebrex 200 mg capsule RxNorm: 675932 TAKE ONE CAPSULE BY MOUT H TWICE A DAY 10/20/2016 07/18/2017 Inactive Bystolic 10 mg tablet RxNorm: 729069 TAKE ONE TABLET BY MOUTH EVERY NIGHT AT BEDTIME 10/20/2016 12/17/2016 Inactive amlodipine 5 mg-benazepril 20 mg capsule RxNorm: 076565 TAKE ONE CAPSULE BY MOUTH EVERY NIGHT AT BEDTIME -- TO REPLACE AMLODOPINE 10/20/20162016 Inactive Lipitor 10 mg tablet RxNorm: 144416 TAKE ONE TABLET BY MOUTH EVERY NIGHT AT BEDTIME 10/20/2016 01/17/2017 Inactive alprazolam 0.5 mg tablet RxNorm: 554259 3 Tablet(s) PO QHS as needed for sleep/anxiety 09/20/2016 10/31/2016 Inactive Tamiflu 75 mg capsule RxNorm: 852663 1 Capsule(s) PO QD 09/19/2016 Inactive Lyrica 75 mg capsule RxNorm: 767970 1 Capsule(s) PO QHS 09/19/2016 Inactive prednisone 20 mg tablet RxNorm: 808914 1 Tablet(s) PO QD 08/10/2016 1 10/17/2015 Inactive doxycycline hyclate 100 mg capsule RxNorm: 0657664 1 Capsule(s) PO BID 08/10/2016 08/19/2016 Inactive Medrol (Dustin) 4 mg tablets in a dose pack RxNorm: 753628 Tablet(s) PO As Directed 07/31/2016 08/22/2016 Inactive Singulair 10 mg tablet RxNorm: 718038 TAKE ONE TABLET BY MOUTH JOSÉ Y 07/27/2016 07/18/2017 Inactive hydrocodone 10 mg-acetaminophen 325 mg tablet RxNorm: 460714 1-2 Tablet(s) QID as needed for pain MUST LAST 30 DAYS 07/26/2016 08/24/2016 Inactive (Response to an electronic controlled substance refill request - RxReferenceNumber: [id number]) alprazolam 0.5 mg tablet RxNorm: 687213 3 Tablet(s) PO QHS as needed for anxiety or sleep 07/26/2016 09/20/2016 Inactive clindamycin 300 mg capsule RxNorm: 630925 1 Capsule(s) PO TID 07/2007/29/2016 Inactive Diflucan 100 mg tablet RxNorm: 715508 1 Tablet(s) PO QD 07/20/2016 Inactive Levaquin 500 mg tablet RxNorm: 976938 1 Tablet(s) PO QD 07/17/2016 Inactive Levaquin 500 mg tablet RxNorm: 281141 1 Tablet(s) PO QD 07/10/2016 Inactive Levaquin 500 mg tablet RxNorm: 255319 1 Tablet(s) PO QD 07/10/2016 Inactive mupirocin 2 % topical ointment RxNorm: 794289 TOP Apply topically to affected areas twice daily 07/06/2016 09/18/2016 Inactive Singulair 10 mg tablet RxNorm: 346135 TAKE ONE TABLET BY MOUTH JOSÉ Y 06/21/2016 01/21/2019 Inactive alprazolam 0.5 mg tablet RxNorm: 906423 TAKE THREE TABL ETS BY MOUTH AT BEDTIME NEEDED FOR SLEEP OR STRESS 05/22/2016 06/20/2016 Inactive triamterene 75 mg-hydrochlorothiazide 50 mg tablet RxNorm: 3 26665 1 Tablet(s) PO QD 04/26/2016 10/21/2016 Inactive Premarin 1.25 mg tablet RxNorm: 071046 1-2 Tablet(s) PO QD 04/26/20 16 03/20/2017 Inactive Klor-Con 8 mEq tablet,extended release RxNorm: 328875 1 Tablet( s) PO BID 04/26/2016 10/19/2016 Inactive Celebrex 200 mg capsule RxNorm: 014683 1 Capsule(s) PO BID TAKE ONE CAPSULE BY MOUTH EVERY DAY 04/26/2016 10/19/2016 Inactive Lipitor 10 mg tablet RxNorm: 789725 1 Tablet(s) PO QHS 04/26/201605/2017 Inactive allopurinol 300 mg tablet RxNorm: 225448 1 Tablet(s) PO QD TAKE ONE TABLET BY MOUTH EVERY DAY 04/26/2016 10/19/2016 Inactive amlodipine 5 mg-benazepril 20 mg capsule RxNorm: 323855 1 Capsule(s) PO QHS replaces amlodopine 04/26/2016 10/19/2016 Inactive duloxetine 60 mg capsule,delayed release RxNorm: 340901 1 Capsu le(s) PO QD 04/26/2016 10/19/2016 Inactive Bystolic 10 mg tablet RxNorm: 855939 1 Tablet(s) PO QHS 04/26/2016 Inactive Singulair 10 mg tablet RxNorm: 154320 1 Tablet(s) PO QD TAKE ONE TABLET BY MOUTH DAILY 04/26/2016 06/20/2016 Inactive clonidine HCl 0.1 mg tablet RxNorm: 015962 1 Tablet(s) PO QID 04/2610/22/2016 Inactive hydrocodone 10 mg-acetaminophen 325 mg tablet RxNorm: 736591 1-2 Tablet(s) QID as needed for pain TAKE ONE TO TWO TABLETS BY MOUTH FOUR TIMES A DAY . MUST LAST 30 DAYS 03/31/2016 04/29/2016 Inactive (Response to an electronic controlled substance refill request - RxReferenceNumber: [id number]) Klor-Con 8 mEq tablet,extended release RxNorm: 461661 T FARRUKH ONE TABLET BY MOUTH TWICE A DAY 03/24/2016 09/29/2019 Inactive prednisone 20 mg tablet RxNorm: 337756 1 Tablet(s) PO QD 03/09/2016 0 03/08/2016 Inactive prednisone 20 mg tablet RxNorm: 898352 1 Tablet(s) PO QD 03/09/2016 0 03/13/2016 Inactive alprazolam 0.5 mg tablet RxNorm: 727904 3 Tablet(s) PO QHS as needed for sleep/stress 03/02/2016 01/21/2019 Inactive mupirocin 2 % topical ointment RxNorm: 446470 TOP twice daily to affected areas of face and neck 02/21/2016 04/25/2016 Inactive clonidine HCl 0.1 mg tablet RxNorm: 369930 TAKE ONE TAB LET BY MOUTH FOUR TIMES A DAY 02/15/2016 09/29/2019 Inactive clonidine HCl 0.1 mg tablet RxNorm: 377044 1 Tablet(s) PO QID 02/1404/25/2016 Inactive Premarin 1.25 mg tablet RxNorm: 832649 1-2 Tablet(s) PO QD 02/15/20 16 03/15/2016 Inactive Klor-Con 8 mEq tablet,extended release RxNorm: 128834 T FARRUKH ONE TABLET BY MOUTH TWICE A DAY 02/15/2016 03/15/2016 Inactive potassium chloride ER 20 mEq tablet,extended release(part/cr yst) RxNorm: 055041 2 Tablet(s) PO BID 02/15/2016 03/15/2016 Inactive Macrobid 100 mg capsule RxNorm: 510964 1 Capsule(s) PO BID 01/24/20 16 01/30/2016 Inactive prednisone 20 mg tablet RxNorm: 985037 Take 3tabs PO QD x 2 days, then 2 tabs PO QD x 2 days, then 1 tab PO QD x 2 days, then 1/2 tab PO QDy x 2 days 12/23/2015 04/25/2016 Inactive Klor-Con 8 mEq tablet,extended release RxNorm: 807271 T FARRUKH ONE TABLET BY MOUTH TWICE A DAY 12/20/2015 02/14/2016 Inactive alprazolam 1 mg tablet RxNorm: 764306 1 1/2 Tablet(s) PO QHS 201501/23/2016 Inactive nystatin 100,000 unit/gram topical cream RxNorm: 997631 APPLY TO AFFECTED AREA(S) TWO TIMES A DAY 11/30/2015 12/14/2015 Inactive Singulair 10 mg tablet RxNorm: 615482 TAKE ONE TABLET BY MOUTH JOSÉ Y 11/18/2015 04/25/2016 Inactive allopurinol 300 mg tablet RxNorm: 202416 1 Tablet(s) PO QD TAKE ONE TABLET BY MOUTH EVERY DAY 10/26/2015 04/22/2016 Inactive Singulair 10 mg tablet RxNorm: 492046 TAKE ONE TABLET BY MOUTH JOSÉ Y 10/26/2015 11/17/2015 Inactive duloxetine 60 mg capsule,delayed release RxNorm: 175991 1 Capsu le(s) PO QD 10/26/2015 04/22/2016 Inactive triamterene 75 mg-hydrochlorothiazide 50 mg tablet RxNorm: 3 75974 1 Tablet(s) PO QD 10/26/2015 11/14/2016 Inactive potassium chloride ER 20 mEq tablet,extended release(part/cr yst) RxNorm: 949338 2 Tablet(s) PO BID 10/26/2015 02/14/2016 Inactive Lipitor 10 mg tablet RxNorm: 177410 1 Tablet(s) PO QHS 10/26/2015 Inactive amlodipine 5 mg-benazepril 20 mg capsule RxNorm: 596069 1 Capsule(s) PO QHS replaces amlodopine 10/26/2015 04/22/2016 Inactive Bystolic 10 mg tablet RxNorm: 473494 1 Tablet(s) PO QHS 10/26/2015 Inactive amlodipine 5 mg-benazepril 20 mg capsule RxNorm: 754016 1 Capsule(s) PO QHS replaces amlodopine 10/06/2015 10/25/2015 Inactive amlodipine 5 mg tablet RxNorm: 971745 1 Tablet(s) PO QHS 09/30/2015 0 04/25/2016 Inactive metolazone 2.5 mg tablet RxNorm: 196916 TAKE ONE TABLET BY MOUTH DAILY NEEDED FOR EDEMA 09/30/2015 01/21/2019 Inactive duloxetine 60 mg capsule,delayed release RxNorm: 809245 1 Capsu le(s) PO QD 09/30/2015 10/25/2015 Inactive cephalexin 500 mg capsule RxNorm: 114751 1 Capsule(s) PO BID 201509/23/2015 Inactive mupirocin 2 % topical ointment RxNorm: 022210 TOP twice daily to affected areas of face and neck 09/14/2015 02/20/2016 Inactive baclofen 20 mg tablet RxNorm: 405389 1 Tablet(s) PO TID as needed for muscle spasm 09/01/2015 11/14/2016 Inactive clonidine HCl 0.1 mg tablet RxNorm: 039008 1 Tablet(s) PO QID 09/0102/14/2016 Inactive alprazolam 1 mg tablet RxNorm: 021174 1 1/2 Tablet(s) PO QHS 201409/09/2015 Inactive baclofen 20 mg tablet RxNorm: 208314 1 Tablet(s) PO TID as needed for muscle spasm 07/23/2015 09/01/2015 Inactive omeprazole 40 mg capsule,delayed release RxNorm: 719083 1 Capsu le(s) PO QD 07/23/2015 04/25/2016 Inactive alprazolam 1 mg tablet RxNorm: 402942 1 1/2 Tablet(s) PO QHS 201408/10/2015 Inactive Bystolic 10 mg tablet RxNorm: 034980 1 Tablet(s) PO BID 06/24/2015 Inactive allopurinol 300 mg tablet RxNorm: 220708 1 Tablet(s) PO QD TAKE ONE TABLET BY MOUTH EVERY DAY 06/23/2015 10/20/2015 Inactive alprazolam 1 mg tablet RxNorm: 440511 1 1/2 Tablet(s) PO QHS 201407/06/2015 Inactive clonidine HCl 0.1 mg tablet RxNorm: 182599 1 Tablet(s) PO QID 06/0209/01/2015 Inactive clonidine HCl 0.1 mg tablet RxNorm: 489525 1 Tablet(s) PO QID 06/0206/01/2015 Inactive Cymbalta 60 mg capsule,delayed release RxNorm: 404424 1 Capsule (s) PO QHS 06/02/2015 08/30/2015 Inactive Cymbalta 60 mg capsule,delayed release RxNorm: 547968 1 Capsule (s) PO QHS 06/02/2015 06/01/2015 Inactive clonidine HCl 0.1 mg tablet RxNorm: 362462 1 Tablet(s) PO TID 05/3106/01/2015 Inactive replaces 0.2mg dose metolazone 2.5 mg tablet RxNorm: 024152 TAKE ONE TABLET BY MOUTH DAILY NEEDED FOR EDEMA 05/21/2015 06/19/2015 Inactive Singulair 10 mg tablet RxNorm: 349567 TAKE ONE TABLET BY MOUTH JOSÉ Y 05/21/2015 10/17/2015 Inactive Cymbalta 30 mg capsule,delayed release RxNorm: 663507 1 Capsule (s) PO QHS 05/20/2015 11/14/2016 Inactive betamethasone valerate 0.1 % topical cream RxNorm: 421402 Appli cation TOP BID 05/10/2015 04/25/2016 Inactive Bactroban 2 % topical ointment RxNorm: 213118 Application TOP BID 0 05/10/2015 06/20/2015 Inactive baclofen 20 mg tablet RxNorm: 827755 1 Tablet(s) PO TID as needed 0 04/26/2015 07/23/2015 Inactive Lipitor 10 mg tablet RxNorm: 697696 1 Tablet(s) PO QHS 04/26/201508/2016 Inactive clonidine HCl 0.1 mg tablet RxNorm: 320281 1 Tablet(s) PO TID 04/2605/30/2015 Inactive replaces 0.2mg dose Klor-Con 8 mEq tablet,extended release RxNorm: 917306 1 Tablet( s) PO BID 04/26/2015 04/25/2016 Inactive metolazone 2.5 mg tablet RxNorm: 271941 1 Tablet(s) PO QD as ne eded for edema 04/26/2015 04/25/2015 Inactive triamterene 75 mg-hydrochlorothiazide 50 mg tablet RxNorm: 3 27258 1 Tablet(s) PO QD 04/26/2015 10/22/2015 Inactive Premarin 1.25 mg tablet RxNorm: 702264 1-2 Tablet(s) PO QD 04/26/20 15 10/22/2015 Inactive Bystolic 10 mg tablet RxNorm: 676360 1 Tablet(s) PO QAM TAKE ONE TABLET BY MOUTH EVERY MORNING 04/23/2015 06/23/2015 Inactive clonidine HCl 0.1 mg tablet RxNorm: 959112 1 Tablet(s) PO TID 03/2304/25/2015 Inactive replaces 0.2mg dose nystatin 100,000 unit/gram topical cream RxNorm: 972198 Applica tion TOP BID 03/23/2015 06/20/2015 Inactive baclofen 20 mg tablet RxNorm: 422762 1 Tablet(s) PO TID as needed 0 03/23/2015 04/25/2015 Inactive Premarin 1.25 mg tablet RxNorm: 013933 1-2 Tablet(s) PO QD 03/23/20 15 04/25/2015 Inactive Klor-Con 8 mEq tablet,extended release RxNorm: 987766 1 Tablet( s) PO BID 03/23/2015 04/25/2015 Inactive cefdinir 300 mg capsule RxNorm: 796824 2 Capsule(s) PO QD 03/16/2015 03/25/2015 Inactive baclofen 20 mg tablet RxNorm: 508374 1 Tablet(s) PO TID as needed 0 03/02/2015 03/22/2015 Inactive allopurinol 300 mg tablet RxNorm: 874767 1 Tablet(s) PO QD TAKE ONE TABLET BY MOUTH EVERY DAY 02/22/2015 05/22/2015 Inactive Klor-Con M20 mEq tablet,extended release RxNorm: 997932 2 Tablet(s) PO BID to use with lasix 02/22/2015 06/20/2015 Inactive clonidine HCl 0.1 mg tablet RxNorm: 315148 1 Tablet(s) PO TID 02/1903/22/2015 Inactive replaces 0.2mg dose Lipitor 10 mg tablet RxNorm: 842218 1 Tablet(s) PO QHS 01/20/201506/2015 Inactive Lipitor 10 mg tablet RxNorm: 461111 1 Tablet(s) PO QHS 01/20/2015 Inactive Singulair 10 mg tablet RxNorm: 257503 1 Tablet(s) PO QD TAKE ONE TABLET BY MOUTH EVERY DAY 11/20/2014 05/18/2015 Inactive Lipitor 10 mg tablet RxNorm: 468654 1 Tablet(s) PO QHS 11/20/201408/2015 Inactive allopurinol 300 mg tablet RxNorm: 644113 1 Tablet(s) PO QD TAKE ONE TABLET BY MOUTH EVERY DAY 11/20/2014 02/16/2015 Inactive Bystolic 10 mg tablet RxNorm: 029555 1 Tablet(s) PO QAM TAKE ONE TABLET BY MOUTH EVERY MORNING 11/20/2014 04/22/2015 Inactive Klor-Con 8 mEq tablet,extended release RxNorm: 905852 1 Tablet( s) PO BID 11/20/2014 02/17/2015 Inactive baclofen 20 mg tablet RxNorm: 119605 1 Tablet(s) PO TID as needed 0 11/20/2014 01/21/2019 Inactive baclofen 20 mg tablet RxNorm: 717132 1 Tablet(s) PO TID as needed 0 10/27/2014 11/19/2014 Inactive baclofen 20 mg tablet RxNorm: 871715 1 Tablet(s) PO TID as needed 0 10/26/2014 03/01/2015 Inactive allopurinol 300 mg tablet RxNorm: 637343 1 Tablet(s) PO QD TAKE ONE TABLET BY MOUTH EVERY DAY 10/26/2014 11/20/2014 Inactive Bystolic 10 mg tablet RxNorm: 696895 1 Tablet(s) PO QAM TAKE ONE TABLET BY MOUTH EVERY MORNING 10/26/2014 11/20/2014 Inactive clonidine HCl 0.1 mg tablet RxNorm: 744915 1 Tablet(s) PO TID 09/2805/27/2019 Inactive replaces 0.2mg dose clonidine HCl 0.1 mg tablet RxNorm: 708035 1 Tablet(s) PO TID 09/2802/18/2015 Inactive replaces 0.2mg dose baclofen 20 mg tablet RxNorm: 562892 1 Tablet(s) PO TID as needed 1 11/01/2013 08/30/2014 Inactive Lipitor 10 mg tablet RxNorm: 609961 1 Tablet(s) PO QHS 08/31/2014 Inactive baclofen 20 mg tablet RxNorm: 835123 1 Tablet(s) PO TID as needed 1 11/01/2013 10/26/2014 Inactive triamterene 75 mg-hydrochlorothiazide 50 mg tablet RxNorm: 3 64313 1 Tablet(s) PO QD 08/31/2014 02/26/2015 Inactive Klor-Con 8 mEq tablet,extended release RxNorm: 359608 1 Tablet( s) PO BID 08/31/2014 11/20/2014 Inactive baclofen 20 mg tablet RxNorm: 582947 1 Tablet(s) PO TID as needed 1 09/30/2013 10/25/2014 Inactive baclofen 20 mg tablet RxNorm: 389456 1 Tablet(s) PO TID as needed 1 09/30/2013 08/31/2014 Inactive omeprazole 40 mg capsule,delayed release RxNorm: 451901 1 Capsu le(s) PO QD 07/21/2014 07/23/2015 Inactive Flonase 50 mcg/actuation nasal spray,suspension RxNorm: 8963 23 1 [facility] NASAL BID 07/15/2014 04/09/2017 Inactive hydrocodone 10 mg-acetaminophen 325 mg tablet RxNorm: 331362 1-2 Tablet(s) QID as needed for pain TAKE ONE TO TWO TABLETS BY MOUTH FOUR TIMES A DAY . MUST LAST 30 DAYS 06/30/2014 07/27/2014 Inactive (Response to an electronic controlled substance refill request - RxReferenceNumber: [id number]) baclofen 20 mg tablet RxNorm: 381349 1 Tablet(s) PO TID as needed 1 07/31/2014 Inactive Singulair 10 mg tablet RxNorm: 892268 1 Tablet(s) PO QD TAKE ONE TABLET BY MOUTH EVERY DAY 05/25/2014 11/20/2014 Inactive Bystolic 10 mg tablet RxNorm: 583898 TAKE ONE TABLET BY MOUTH E VERY MORNING 05/25/2014 09/21/2014 Inactive allopurinol 300 mg tablet RxNorm: 906075 1 Tablet(s) PO QD TAKE ONE TABLET BY MOUTH EVERY DAY 05/25/2014 10/21/2014 Inactive baclofen 20 mg tablet RxNorm: 507883 1 Tablet(s) PO TID as needed 0 05/25/2014 06/29/2014 Inactive allopurinol 300 mg tablet RxNorm: 516078 TAKE ONE TABLET BY LOPEZ TH EVERY DAY 05/25/2014 09/21/2014 Inactive Singulair 10 mg tablet RxNorm: 590944 1 Tablet(s) PO QD TAKE ONE TABLET BY MOUTH EVERY DAY 05/25/2014 05/24/2014 Inactive Bystolic 10 mg tablet RxNorm: 832472 1 Tablet(s) PO QAM TAKE ONE TABLET BY MOUTH EVERY MORNING 05/25/2014 10/21/2014 Inactive metolazone 2.5 mg tablet RxNorm: 521689 1 Tablet(s) PO QD as ne eded for edema 05/18/2014 04/25/2015 Inactive Lasix 40 mg tablet RxNorm: 053517 1 Tablet(s) PO QAM s hould take potassium supplementation with this medication 05/14/2014 05/17/2014 Inactive hydrocodone 10 mg-acetaminophen 325 mg tablet RxNorm: 356599 1-2 Tablet(s) QID as needed for pain TAKE ONE TO TWO TABLETS BY MOUTH FOUR TIMES A DAY . MUST LAST 30 DAYS 05/07/2014 06/05/2014 Inactive (Response to an electronic controlled substance refill request - RxReferenceNumber: [id number]) alprazolam 0.5 mg tablet RxNorm: 538279 TAKE ONE TABLET BY MOUTH TWICE A DAY , MUST LAST 30 DAYS 05/07/2014 05/22/2016 Inactive (Response to a n electronic controlled substance refill request - RxReferenceNumber: [id number]) diclofenac sodium 75 mg tablet,delayed release RxNorm: 85541 6 1 Tablet(s) PO BID for pain 04/24/2014 07/20/2014 Inactive Celebrex 200 mg capsule RxNorm: 993251 TAKE ONE CAPSULE BY MOUT H EVERY DAY 04/24/2014 07/20/2014 Inactive alprazolam 0.5 mg tablet RxNorm: 396536 TAKE ONE TABLET BY MOUTH TWICE A DAY , MUST LAST 30 DAYS 03/24/2014 04/22/2014 Inactive (Response to a n electronic controlled substance refill request - RxReferenceNumber: [id number]) diclofenac sodium 75 mg tablet,delayed release RxNorm: 03573 6 1 Tablet(s) PO BID for pain 03/24/2014 04/24/2014 Inactive clonidine HCl 0.1 mg tablet RxNorm: 128246 1 Tablet(s) PO TID 03/2409/28/2014 Inactive replaces 0.2mg dose Klor-Con 8 mEq tablet,extended release RxNorm: 205470 1 Tablet( s) PO BID 02/26/2014 08/31/2014 Inactive diclofenac sodium 75 mg tablet,delayed release RxNorm: 74259 6 1 Tablet(s) PO BID for pain 02/25/2014 03/24/2014 Inactive hydrocodone 10 mg-acetaminophen 325 mg tablet RxNorm: 968061 1-2 Tablet(s) QID as needed for pain TAKE ONE TO TWO TABLETS BY MOUTH FOUR TIMES A DAY . MUST LAST 30 DAYS 02/25/2014 03/26/2014 Inactive (Response to an electronic controlled substance refill request - RxReferenceNumber: [id number]) alprazolam 0.5 mg tablet RxNorm: 210819 Tablet(s) PO BI D as needed for anxiety TAKE ONE TABLET BY MOUTH TWICE A DAY , MUST LAST 30 DAYS 02/25/2014 Inactive (Response to an electronic controlled [place] bstance refill request - RxReferenceNumber: [id number]) [AttnRPh: Saving apply/adjudicate RxGRP:SG20 RxBIN:[id number] RxPCN: ID#:[id number]] alprazolam 0.5 mg tablet RxNorm: 964587 Tablet(s) TAKE ONE TABLET BY MOUTH TWICE A DAY , MUST LAST 30 DAYS 01/27/2014 02/24/2014 Inactive (Respo nse to an electronic controlled substance refill request - RxReferenceNumber: [id number]) [AttnRPh: Saving apply/adjudicate RxGRP:SG20 RxBIN:[id number] RxPCN: ID#:[id number]] hydrocodone 10 mg-acetaminophen 325 mg tablet RxNorm: 342549 1-2 Tablet(s) QID as needed for pain TAKE ONE TO TWO TABLETS BY MOUTH FOUR TIMES A DAY . MUST LAST 30 DAYS 01/27/2014 02/24/2014 Inactive (Response to an electronic controlled substance refill request - RxReferenceNumber: [id number]) alprazolam 0.5 mg tablet RxNorm: 304506 TAKE ONE TABLET BY MOUTH TWICE A DAY , MUST LAST 30 DAYS 01/27/2014 01/26/2014 Inactive (Response to a n electronic controlled substance refill request - RxReferenceNumber: [id number]) Premarin 1.25 mg tablet RxNorm: 752105 1-2 Tablet(s) PO QD 01/28/20 14 07/25/2014 Inactive alprazolam 0.5 mg tablet RxNorm: 036474 TAKE ONE TABLET BY MOUTH TWICE A DAY , MUST LAST 30 DAYS 01/27/2014 01/27/2014 Inactive (Response to a n electronic controlled substance refill request - RxReferenceNumber: [id number]) hydrocodone 10 mg-acetaminophen 325 mg tablet RxNorm: 897842 TAKE ONE TO TWO TABLETS BY MOUTH FOUR TIMES A DAY . MUST LAST 30 DAYS 01/27/20142013 Inactive (Response to an electronic controlled [place] bstance refill request - RxReferenceNumber: [id number]) Celebrex 200 mg capsule RxNorm: 192558 1 Capsule(s) PO QD TAKE ONE CAPSULE BY MOUTH EVERY DAY 12/29/2013 04/27/2014 Inactive hydrocodone 10 mg-acetaminophen 325 mg tablet RxNorm: 405436 1-2 Tablet(s) PO QID as needed for severe pain 12/29/2013 01/27/2014 Inactive allopurinol 300 mg tablet RxNorm: 236415 1 Tablet(s) PO QD TAKE ONE TABLET BY MOUTH EVERY DAY 12/29/2013 05/24/2014 Inactive alprazolam 0.5 mg tablet RxNorm: 945179 TAKE ONE TABLET BY MOUTH TWICE A DAY , MUST LAST 30 DAYS 12/29/2013 01/27/2014 Inactive (Response to a n electronic controlled substance refill request - RxReferenceNumber: [id number]) Celebrex 200 mg capsule RxNorm: 882553 1 Capsule(s) PO QD TAKE ONE CAPSULE BY MOUTH EVERY DAY 12/29/2013 12/29/2013 Inactive Bystolic 10 mg tablet RxNorm: 542429 1 Tablet(s) PO QAM TAKE ONE TABLET BY MOUTH EVERY MORNING 12/29/2013 05/24/2014 Inactive Bystolic 10 mg tablet RxNorm: 665650 1 Tablet(s) PO QAM TAKE ONE TABLET BY MOUTH EVERY MORNING 12/29/2013 12/29/2013 Inactive Singulair 10 mg tablet RxNorm: 333671 1 Tablet(s) PO QD TAKE ONE TABLET BY MOUTH EVERY DAY 12/29/2013 05/25/2014 Inactive hydrocodone 10 mg-acetaminophen 325 mg tablet RxNorm: 046804 TAKE ONE TO TWO TABLETS BY MOUTH FOUR TIMES A DAY . MUST LAST 30 DAYS 12/29/20132013 Inactive (Response to an electronic controlled [place] bstance refill request - RxReferenceNumber: [id number]) Trazadone 75mg Tablet RxNorm: 1 Tablet(s) PO QHS as needed 03/23/2014 Inactive Trazadone 75mg Tablet RxNorm: 1 Tablet(s) PO QHS 12/24/20132014 Inactive Soma 350 mg tablet RxNorm: 400108 Tablet(s) PO TAKE ON E TABLET BY MOUTH THREE TIMES A DAY NEEDED FOR MUSCLE SPASMS. THIS MUST LAST 30 DAYS BETWEEN REFILLS. 12/10/2013 12/22/2013 Inactive (Appended: Cont rolled substance eRx refill - RxReferenceNumber: [id number]) diclofenac sodium 75 mg tablet,delayed release RxNorm: 11383 6 1 Tablet(s) PO BID for pain 12/10/2013 02/24/2014 Inactive allopurinol 300 mg tablet RxNorm: 775893 1 Tablet(s) PO QD 11/20/19 14 12/29/2013 Inactive alprazolam 0.5 mg tablet RxNorm: 985779 2 Tablet(s) PO BID 11/13/19 14 12/29/2013 Inactive prn clonidine 0.1 mg tablet RxNorm: 201652 1 Tablet(s) PO TID 11/12/2013 02/09/2014 Inactive replaces 0.2mg dose Klor-Con M20 mEq tablet,extended release RxNorm: 831322 2 Tablet(s) PO BID to use with lasix 11/12/2013 05/10/2014 Inactive Singulair 10 mg tablet RxNorm: 042875 1 Tablet(s) PO QD 11/12/2013 Inactive hydrocodone 10 mg-acetaminophen 325 mg tablet RxNorm: 617048 1-2 Tablet(s) PO QID as needed for severe pain 11/12/2013 12/28/2013 Inactive Bystolic 10 mg tablet RxNorm: 301368 1 Tablet(s) PO QAM 11/12/2013 Inactive Soma 350 mg tablet RxNorm: 848018 Tablet(s) PO TAKE ON E TABLET BY MOUTH THREE TIMES A DAY NEEDED FOR MUSCLE SPASMS. THIS MUST LAST 30 DAYS BETWEEN REFILLS. 10/13/2013 12/10/2013 Inactive (Appended: Cont rolled substance eRx refill - RxReferenceNumber: [id number]) hydrocodone 10 mg-acetaminophen 325 mg tablet RxNorm: 116692 1-2 Tablet(s) PO QID as needed for severe pain 10/03/2013 11/11/2013 Inactive diclofenac sodium 75 mg tablet,delayed release RxNorm: 72676 8 1 Tablet(s) PO BID for pain 09/11/2013 12/10/2013 Inactive alprazolam 0.5 mg tablet RxNorm: 321439 1 Tablet(s) PO BID May refill on 04/26/13 09/01/2013 10/30/2013 Inactive prn hydrocodone 10 mg-acetaminophen 325 mg tablet RxNorm: 693868 1-2 Tablet(s) PO QID as needed for severe pain 09/01/2013 10/02/2013 Inactive triamterene 75 mg-hydrochlorothiazide 50 mg tablet RxNorm: 3 45591 1 Tablet(s) PO QD 08/04/2013 08/31/2014 Inactive cyclobenzaprine 10 mg tablet RxNorm: 023983 1 Tablet(s) PO TID prn spasm 08/04/2013 08/13/2013 Inactive clonidine 0.1 mg tablet RxNorm: 599957 1 Tablet(s) PO TID 08/04/2013 11/11/2013 Inactive replaces 0.2mg dose cyclobenzaprine 10 mg tablet RxNorm: 544884 1 Tablet(s) PO TID prn spasm 07/23/2013 08/01/2013 Inactive hydrocodone 10 mg-acetaminophen 325 mg tablet RxNorm: 587063 2 1-2 Tablet(s) PO QID as needed for severe pain 06/09/2013 08/07/2013 Inactive Singulair 10 mg tablet RxNorm: 144383 1 Tablet(s) PO QD 05/29/2013 Inactive Klor-Con 8 mEq tablet,extended release RxNorm: 763952 1 Tablet( s) PO BID 05/29/2013 02/26/2014 Inactive allopurinol 300 mg tablet RxNorm: 043290 1 Tablet(s) PO QD 05/29/20 13 11/19/2013 Inactive Bystolic 10 mg tablet RxNorm: 127073 1 Tablet(s) PO QAM take one daily in the morning. 05/29/2013 11/11/2013 Inactive scopolamine 1.5 mg 72 hr Transderm Patch RxNorm: 850590 Application TD Q72H for motion sickness 05/26/2013 07/22/2013 Inactive Soma 350 mg tablet RxNorm: 758382 1 Tablet(s) PO TID as needed for spasm 05/19/2013 10/13/2013 Inactive diclofenac sodium 75 mg tablet,delayed release RxNorm: 76602 8 1 Tablet(s) PO BID for pain 05/14/2013 07/22/2013 Inactive allopurinol 300 mg tablet RxNorm: 273030 1 Tablet(s) PO QD 04/25/20 13 05/28/2013 Inactive alprazolam 0.5 mg tablet RxNorm: 316213 1 Tablet(s) PO BID May refill on 04/26/13 04/25/2013 06/23/2013 Inactive prn Celebrex 200 mg capsule RxNorm: 814656 1 Capsule(s) PO QD 04/16/2013 12/29/2013 Inactive alprazolam 0.5 mg tablet RxNorm: 005584 1 Tablet(s) PO BID May refill on 04/26/13 04/16/2013 04/24/2013 Inactive prn Soma 350 mg tablet RxNorm: 989582 1 Tablet(s) PO TID as needed for spasm 04/16/2013 No Stop Date Active Lasix 40 mg tablet RxNorm: 078122 1 Tablet(s) PO QAM s hould take potassium supplementation with this medication 04/16/2013 06/14/2013 Inactive clonidine 0.1 mg tablet RxNorm: 984405 1 Tablet(s) PO TID 04/16/2013 08/03/2013 Inactive replaces 0.2mg dose prednisone 20 mg tablet RxNorm: 655905 1 Tablet(s) PO BID 04/16/2013 04/20/2013 Inactive diclofenac sodium 75 mg tablet,delayed release RxNorm: 43445 8 1 Tablet(s) PO BID for pain 04/14/2013 05/13/2013 Inactive hydrocodone 10 mg-acetaminophen 325 mg tablet RxNorm: 954429 2 1-2 Tablet(s) PO QID as needed for severe pain 04/14/2013 No Stop Date Active Lasix 40 mg tablet RxNorm: 161522 1 Tablet(s) PO QAM s hould take potassium supplementation with this medication 03/31/2013 04/15/2013 Inactive Celebrex 200 mg capsule RxNorm: 113791 1 Capsule(s) PO QD 03/31/2013 04/15/2013 Inactive alprazolam 0.5 mg tablet RxNorm: 132941 1 Tablet(s) PO BID 03/28/20 13 04/15/2013 Inactive prn hydrocodone 10 mg-acetaminophen 325 mg tablet RxNorm: 178986 2 1-2 Tablet(s) PO QID as needed for severe pain 03/10/2013 No Stop Date Active metformin ER 500 mg 24 hr tablet,extended release RxNorm: 86 1018 1 Tablet(s) PO QD 03/06/2013 07/22/2013 Inactive clindamycin 300 mg capsule RxNorm: 846850 2 Capsule(s) PO TID 03/0503/14/2013 Inactive Zaroxolyn 2.5 mg tablet RxNorm: 447555 1 Tablet(s) PO QAM 03/05/2013 05/19/2015 Inactive amlodipine 10 mg tablet RxNorm: 751490 1 Tablet(s) PO QD 03/03/2013 0 05/25/2013 Inactive Norvasc 10 mg tablet RxNorm: 471407 1 Tablet(s) PO QD 02/28/201307/11 Inactive Celebrex 200 mg capsule RxNorm: 762673 1 Capsule(s) PO QD 02/28/2013 03/30/2013 Inactive diclofenac sodium 75 mg tablet,delayed release RxNorm: 34076 8 1 Tablet(s) PO BID for pain 02/14/2013 03/15/2013 Inactive Soma 350 mg tablet RxNorm: 698589 1 Tablet(s) PO TID as needed for spasm 02/14/2013 No Stop Date Active hydrocodone 10 mg-acetaminophen 325 mg tablet RxNorm: 854563 2 1-2 Tablet(s) PO QID as needed for severe pain 02/14/2013 No Stop Date Active Norvasc 10 mg tablet RxNorm: 786403 1 Tablet(s) PO QD 02/10/201302/09 Inactive Celebrex 200 mg capsule RxNorm: 887422 1 Capsule(s) PO QD 01/27/2013 01/26/2013 Inactive Premarin 1.25 mg tablet RxNorm: 754906 1-2 Tablet(s) PO QD 01/28/20 13 06/25/2013 Inactive alprazolam 0.5 mg tablet RxNorm: 214493 1 Tablet(s) PO BID 01/28/20 13 02/25/2013 Inactive prn amlodipine 5 mg tablet RxNorm: 585423 1 Tablet(s) PO QD 01/27/2013 Inactive Celebrex 200 mg capsule RxNorm: 508962 1 Capsule(s) PO QD 01/27/2013 02/27/2013 Inactive gabapentin 600 mg tablet RxNorm: 675714 1 Tablet(s) PO QHS 01/16/20 13 07/22/2013 Inactive Soma 350 mg tablet RxNorm: 091671 1 Tablet(s) PO TID as needed for spasm 01/15/2013 No Stop Date Active hydrocodone 10 mg-acetaminophen 325 mg tablet RxNorm: 610759 2 1-2 Tablet(s) PO QID as needed for severe pain 01/15/2013 No Stop Date Active Soma 350 mg tablet RxNorm: 993895 1 Tablet(s) PO TID as needed for spasm 01/13/2013 No Stop Date Active alprazolam 0.5 mg tablet RxNorm: 256796 1 Tablet(s) PO BID 12/31/19 13 01/26/2013 Inactive prn diclofenac sodium 75 mg tablet,delayed release RxNorm: 21635 8 1 Tablet(s) PO BID for pain 12/09/2012 01/07/2013 Inactive gabapentin 600 mg tablet RxNorm: 391212 1 Tablet(s) PO QHS 12/10/19 13 01/07/2013 Inactive hydrocodone 10 mg-acetaminophen 325 mg tablet RxNorm: 378993 2 1-2 Tablet(s) PO QID as needed for severe pain 12/02/2012 No Stop Date Active Levaquin 750 mg tablet RxNorm: 880854 1 Tablet(s) PO QD 11/21/2012 Inactive Singulair 10 mg tablet RxNorm: 407143 1 Tablet(s) PO QD 11/11/2012 Inactive clonidine 0.2 mg tablet RxNorm: 066142 1 Tablet(s) PO TID 11/11/2012 04/15/2013 Inactive alprazolam 0.5 mg tablet RxNorm: 332253 1 Tablet(s) PO BID 11/12/19 13 12/10/2012 Inactive prn Klor-Con 8 mEq tablet,extended release RxNorm: 439490 1 Tablet( s) PO BID 11/11/2012 03/04/2013 Inactive hydrocodone 10 mg-acetaminophen 325 mg tablet RxNorm: 315353 2 1-2 Tablet(s) PO QID as needed for severe pain 11/06/2012 No Stop Date Active alprazolam 0.5 mg tablet RxNorm: 646754 1 Tablet(s) PO BID 10/15/19 13 11/10/2012 Inactive prn hydrocodone-acetaminophen 10 mg-325 mg tablet RxNorm: 829323 2 1-2 Tablet(s) PO QID as needed for severe pain 10/10/2012 10/09/2012 Inactive allopurinol 300 mg tablet RxNorm: 620881 1 Tablet(s) PO QD 09/20/19 13 12/18/2012 Inactive alprazolam 0.5 mg tablet RxNorm: 276992 1 Tablet(s) PO BID 09/17/19 13 10/14/2012 Inactive prn hydrocodone-acetaminophen 10 mg-325 mg tablet RxNorm: 011899 2 1-2 Tablet(s) PO QID as needed for severe pain 08/22/2012 08/21/2012 Inactive Norvasc 10 mg tablet RxNorm: 251335 1 Tablet(s) PO QD 08/12/201201/10 Inactive Premarin 1.25 mg tablet RxNorm: 203485 1-2 Tablet(s) PO QD 07/30/20 12 12/26/2012 Inactive alprazolam 0.5 mg tablet RxNorm: 303096 1 Tablet(s) PO BID 07/29/20 12 08/27/2012 Inactive prn Klor-Con 8 mEq tablet,extended release RxNorm: 727512 1 Tablet( s) PO BID 07/29/2012 11/10/2012 Inactive hydrocodone-acetaminophen 10 mg-325 mg tablet RxNorm: 131793 2 1-2 Tablet(s) PO QID as needed for severe pain 07/29/2012 No Stop Date Active Premarin 1.25 mg tablet RxNorm: 933427 1-2 Tablet(s) PO QD 07/29/20 12 07/29/2012 Inactive clonidine 0.2 mg tablet RxNorm: 263908 1 Tablet(s) PO TID 07/29/2012 10/28/2012 Inactive ketorolac 10 mg tablet RxNorm: 404351 1 Tablet(s) PO QID prn he adache 07/18/2012 No Stop Date Active hydrocodone-acetaminophen 10 mg-325 mg tablet RxNorm: 743375 2 1-2 Tablet(s) PO QID as needed for severe pain 07/03/2012 No Stop Date Active amlodipine 5 mg tablet RxNorm: 427276 1 Tablet(s) PO QD 07/02/2012 Inactive allopurinol 300 mg tablet RxNorm: 936090 1 Tablet(s) PO QD 07/02/20 12 09/19/2012 Inactive Celebrex 200 mg capsule RxNorm: 780132 1 Capsule(s) PO QD for j oint pain 06/26/2012 10/23/2012 Inactive diclofenac sodium 75 mg tablet,delayed release RxNorm: 43937 8 1 Tablet(s) PO BID for pain 06/19/2012 09/16/2012 Inactive hydrocodone-acetaminophen 10 mg-325 mg tablet RxNorm: 451237 2 1-2 Tablet(s) PO QID as needed for severe pain 06/10/2012 No Stop Date Active alprazolam 0.5 mg tablet RxNorm: 869360 1 Tablet(s) PO BID 06/03/20 12 07/02/2012 Inactive prn ketorolac 10 mg tablet RxNorm: 100967 1 Tablet(s) PO Q8H 05/27/2012 0 01/21/2019 Inactive as needed for headache hydrocodone-acetaminophen 10 mg-325 mg tablet RxNorm: 797617 2 1-2 Tablet(s) PO QID as needed for severe pain 05/15/2012 No Stop Date Active allopurinol 300 mg tablet RxNorm: 411523 1 Tablet(s) PO QD 05/14/20 12 06/12/2012 Inactive allopurinol 300 mg tablet RxNorm: 603504 1 Tablet(s) PO QD 05/14/20 12 05/13/2012 Inactive amlodipine 5 mg tablet RxNorm: 819333 1 Tablet(s) PO QD 05/01/2012 Inactive amlodipine 5 mg Tab RxNorm: 014373 1 Tablet(s) PO QD 05/01/201204/30 Inactive Celebrex 200 mg capsule RxNorm: 173279 1 Capsule(s) PO QD for j oint pain 05/01/2012 06/25/2012 Inactive Singulair 10 mg tablet RxNorm: 559016 1 Tablet(s) PO QD 05/01/2012 Inactive alprazolam 0.5 mg tablet RxNorm: 364564 1 Tablet(s) PO BID 05/01/20 12 05/30/2012 Inactive prn Celebrex 200 mg Cap RxNorm: 211355 1 Capsule(s) PO QD for joint radu n 05/01/2012 04/30/2012 Inactive hydrocodone-acetaminophen 10 mg-325 mg tablet RxNorm: 525415 2 1-2 Tablet(s) PO QID as needed for severe pain 04/19/2012 No Stop Date Active Lasix 40 mg tablet RxNorm: 381669 1 Tablet(s) PO QAM s hould take potassium supplementation with this medication 04/05/2012 06/03/2012 Inactive alprazolam 0.5 mg Tab RxNorm: 084929 1 Tablet(s) PO BID 04/05/2012 Inactive prn hydrocodone-acetaminophen 10 mg-325 mg Tab RxNorm: 2779546 1-2 Tablet(s) PO QID as needed for severe pain 03/25/2012 03/24/2012 Inactive clonidine 0.2 mg Tab RxNorm: 332235 1 Tablet(s) PO TID 03/08/2012 Inactive alprazolam 0.5 mg Tab RxNorm: 983971 1 Tablet(s) PO BID 03/08/2012 Inactive prn Soma 350 mg tablet RxNorm: 324749 1 Tablet(s) PO TID for spasm 02/0903/18/2012 Inactive clonidine 0.2 mg tablet RxNorm: 024167 1 Tablet(s) PO TID 03/08/2012 07/28/2012 Inactive Celebrex 200 mg Cap RxNorm: 007739 1 Capsule(s) PO QD for joint radu n 03/01/2012 04/29/2012 Inactive amlodipine 5 mg Tab RxNorm: 238340 1 Tablet(s) PO QD 02/26/201202/24 Inactive amlodipine 5 mg Tab RxNorm: 286270 1 Tablet(s) PO QD 02/26/201204/25 Inactive Bactroban 2 % Ointment RxNorm: 513584 Application TOP QID to sores 02/23/2012 No Stop Date Active amlodipine 2.5 mg tablet RxNorm: 069060 1 Tablet(s) PO QHS 02/20/2002/25/2012 Inactive doxycycline hyclate 100 mg Cap RxNorm: 8118033 1 Capsule(s) PO BID 02/20/2012 02/29/2012 Inactive hydrocodone-acetaminophen 10 mg-325 mg Tab RxNorm: 6838169 1-2 T ablet(s) PO QID 02/08/2012 No Stop Date Active alprazolam 0.5 mg Tab RxNorm: 785905 1 Tablet(s) PO BID 02/08/2012 Inactive prn Singulair 10 mg Tab RxNorm: 590260 1 Tablet(s) PO QD 02/08/201204/30 Inactive Soma 350 mg Tab RxNorm: 322611 1 Tablet(s) PO TID for spasm 012 03/07/2012 Inactive Soma 350 mg Tab RxNorm: 141480 1 Tablet(s) PO TID for spasm 012 02/05/2012 Inactive diclofenac sodium 75 mg tablet,delayed release RxNorm: 18321 8 1 Tablet(s) PO BID for pain 02/01/2012 03/18/2012 Inactive Celebrex 200 mg Cap RxNorm: 693320 1 Capsule(s) PO QD for joint radu n 01/30/2012 02/28/2012 Inactive Lasix 40 mg Tab RxNorm: 787833 1 Tablet(s) PO QAM 01/24/2012 03/18/20 12 Inactive potassium chloride ER 20 mEq tablet,extended release(part/cr yst) RxNorm: 853369 2 Tablet(s) PO BID 01/24/2012 02/22/2012 Inactive alprazolam 0.5 mg Tab RxNorm: 288028 1 Tablet(s) PO BID 01/11/2012 Inactive prn hydrocodone-acetaminophen 10 mg-325 mg Tab RxNorm: 5265191 1-2 T ablet(s) PO QID 01/11/2012 No Stop Date Active Ambien 10 mg Tab RxNorm: 542972 1 Tablet(s) PO QHS 01/11/2012 012 Inactive Klor-Con 8 mEq Tab RxNorm: 159323 1 Tablet(s) PO BID 01/11/201201/22 Inactive diclofenac sodium 75 mg Tab, Delayed Release RxNorm: 282690 1 Tablet(s) PO BID for pain 01/10/2012 01/31/2012 Inactive Ambien 10 mg Tab RxNorm: 075245 1 Tablet(s) PO QHS 12/11/2011 012 Inactive alprazolam 0.5 mg Tab RxNorm: 614187 1 Tablet(s) PO BID 12/11/2011 Inactive prn hydrocodone 10 mg-acetaminophen 325 mg tablet RxNorm: 012086 1-2 Tablet(s) PO TID 11/28/2011 No Stop Date Active as needed for pa in - Previous quantity #240, will start dosing for #180 in April 2011 per Doctor Td. Ambien 10 mg Tab RxNorm: 050917 1 Tablet(s) PO QHS 11/09/2011 012 Inactive alprazolam 0.5 mg Tab RxNorm: 057131 1 Tablet(s) PO BID 11/09/2011 Inactive prn hydrocodone-acetaminophen 10 mg-325 mg Tab RxNorm: 3001673 1-2 T ablet(s) PO TID 11/06/2011 No Stop Date Active as needed for pain - Previous quantity #240, will start dosing for #180 in April 2011 per Doctor Td. Singulair 10 mg Tab RxNorm: 098704 1 Tablet(s) PO QD 10/13/201110/12 Inactive Singulair 10 mg Tab RxNorm: 978842 1 Tablet(s) PO QD 10/13/201102/06 Inactive hydrocodone-acetaminophen 10 mg-325 mg Tab RxNorm: 8016278 1-2 T ablet(s) PO TID 10/10/2011 10/09/2011 Inactive as needed for pain - Previous quantity #240, will start dosing for #180 in April 2011 per Doctor Td. hydrocodone-acetaminophen 10 mg-325 mg Tab RxNorm: 6636112 1-2 T ablet(s) PO TID 10/09/2011 No Stop Date Active as needed for pain - Previous quantity #240, will start dosing for #180 in April 2011 per Doctor Td. Klor-Con 8 mEq Tab RxNorm: 544054 1 Tablet(s) PO BID 10/02/201101/09 Inactive triamterene 75 mg-hydrochlorothiazide 50 mg tablet RxNorm: 3 01369 1 Tablet(s) PO QD 09/14/2011 03/06/2013 Inactive Ambien 10 mg Tab RxNorm: 010978 1 Tablet(s) PO QHS 09/14/2011 012 Inactive hydrocodone-acetaminophen 10 mg-325 mg Tab RxNorm: 3479939 1-2 T ablet(s) PO TID 09/14/2011 No Stop Date Active as needed for pain - Previous quantity #240, will start dosing for #180 in April 2011 per Doctor Td. alprazolam 0.5 mg Tab RxNorm: 327627 1 Tablet(s) PO BID 09/14/2011 Inactive prn Zithromax 500 mg Tab RxNorm: 277188 1 Tablet(s) PO QD 09/13/201109/10 Inactive prednisone 20 mg Tab RxNorm: 894480 1 Tablet(s) PO BID 08/31/2011 Inactive Ambien 10 mg Tab RxNorm: 287008 1 Tablet(s) PO QHS 08/17/2011 011 Inactive hydrocodone-acetaminophen 10 mg-325 mg Tab RxNorm: 5146383 1-2 T ablet(s) PO TID 08/17/2011 No Stop Date Active as needed for pain - Previous quantity #240, will start dosing for #180 in April 2011 per Doctor Td. clonidine 0.2 mg Tab RxNorm: 948756 1 Tablet(s) PO TID 08/17/201112/2011 Inactive Ambien 10 mg Tab RxNorm: 909496 1 Tablet(s) PO QHS 08/17/2011 019 Inactive alprazolam 0.5 mg Tab RxNorm: 179509 1 Tablet(s) PO BID 08/17/2011 Inactive prn hydrocodone-acetaminophen 10 mg-325 mg Tab RxNorm: 4814909 1-2 T ablet(s) PO TID 08/17/2011 08/16/2011 Inactive as needed for pain - Previous quantity #240, will start dosing for #180 in April 2011 per Doctor Td. Singulair 10 mg Tab RxNorm: 383138 1 Tablet(s) PO QD 08/17/201108/16 Inactive Klor-Con 8 mEq Tab RxNorm: 177292 1 Tablet(s) PO QD 08/17/20112011 Inactive alprazolam 0.5 mg Tab RxNorm: 111935 1 Tablet(s) PO BID 07/20/2011 Inactive prn Ambien 10 mg Tab RxNorm: 522122 1 Tablet(s) PO QHS 07/20/2011 012 Inactive Singulair 10 mg Tab RxNorm: 829114 1 Tablet(s) PO QD 07/20/201107/19 Inactive Premarin 1.25 mg tablet RxNorm: 498313 2 Tablet(s) PO QD 07/20/2011 0 01/21/2019 Inactive Premarin 1.25 mg tablet RxNorm: 790310 1-2 Tablet(s) PO QD 07/20/20 11 12/16/2011 Inactive Premarin 1.25 mg Tab RxNorm: 373143 1-2 Tablet(s) PO QD 07/06/2011 Inactive alprazolam 0.5 mg Tab RxNorm: 305618 1 Tablet(s) PO BID 06/22/2011 Inactive prn alprazolam 0.5 mg Tab RxNorm: 410444 1 Tablet(s) PO BID 06/22/2011 Inactive prn Premarin 1.25 mg Tab RxNorm: 544260 1 Tablet(s) PO QD m ay do 90 day fill if desired 06/22/2011 07/05/2011 Inactive hydrocodone-acetaminophen 10 mg-325 mg Tab RxNorm: 2106391 1-2 T ablet(s) PO TID 06/22/2011 No Stop Date Active as needed for pain - Previous quantity #240, will start dosing for #180 in April 2011 per Doctor Td. clonidine 0.2 mg Tab RxNorm: 586289 1 Tablet(s) PO TID 05/25/201103/2011 Inactive triamterene-hydrochlorothiazide 75 mg-50 mg Tab RxNorm: 3108 18 1 Tablet(s) PO QD 05/25/2011 09/13/2011 Inactive alprazolam 0.5 mg Tab RxNorm: 533560 1 Tablet(s) PO BID 05/25/2011 Inactive prn hydrocodone-acetaminophen 10 mg-325 mg Tab RxNorm: 1809406 1-2 T ablet(s) PO TID 05/25/2011 No Stop Date Active as needed for pain - Previous quantity #240, will start dosing for #180 in April 2011 per Doctor Td. Robaxin-750 750 mg Tab RxNorm: 701481 2 Tablet(s) PO QHS 05/22/2011 1 Inactive prn spasm hydrocodone-acetaminophen 10 mg-325 mg Tab RxNorm: 4384174 1-2 T ablet(s) PO TID 04/26/2011 No Stop Date Active as needed for pain - Previous quantity #240, will start dosing for #180 in April 2011 per Doctor Td. alprazolam 0.5 mg Tab RxNorm: 718833 1 Tablet(s) PO BID 04/25/2011 Inactive prn Klor-Con 8 mEq Tab RxNorm: 944439 1 Tablet(s) PO QD 03/30/20112010 Inactive Klor-Con 8 mEq Tab RxNorm: 059493 1 Tablet(s) PO QD 03/29/20112010 Inactive hydrocodone-acetaminophen 10 mg-325 mg Tab RxNorm: 0035951 1-2 T ablet(s) PO TID 03/20/2011 04/25/2011 Inactive as needed for pain - Previous quantity #240, will start dosing for #180 in April 2011 per Doctor Td. alprazolam 0.5 mg Tab RxNorm: 722607 1 Tablet(s) PO BID prn 011 03/30/2011 Inactive Ambien 10 mg Tab RxNorm: 106602 1 Tablet(s) PO QHS 03/01/2011 011 Inactive cyclobenzaprine 10 mg Tab RxNorm: 680638 1 Tablet(s) PO TID 011 03/18/2012 Inactive cyclobenzaprine 10 mg Tab RxNorm: 424947 1 Tablet(s) PO TID 011 01/08/2011 Inactive cyclobenzaprine 10 mg Tab RxNorm: 994823 1 Tablet(s) PO TID 011 12/20/2010 Inactive terbinafine 250 mg Tab RxNorm: 447568 1 Tablet(s) PO QD 12/12/2010 Inactive triamterene-hydrochlorothiazide 75 mg-50 mg Tab RxNorm: 3108 18 1 Tablet(s) PO QD 12/07/2010 06/04/2011 Inactive Klor-Con 8 8 mEq Tab RxNorm: 371233 1 Tablet(s) PO QD 12/07/201001/08 Inactive Premarin 1.25 mg Tab RxNorm: 555080 2 Tablet(s) PO QD 12/07/201001/08 Inactive clonidine 0.2 mg Tab RxNorm: 714216 1 Tablet(s) PO TID 12/07/2010 Inactive hydrocodone-acetaminophen 7.5 mg-650 mg Tab RxNorm: 374398 1 Ta blet(s) PO Q4H 12/05/2010 01/21/2019 Inactive hydrocodone-acetaminophen 7.5 mg-650 mg Tab RxNorm: 873198 1 Ta blet(s) PO Q4H 10/26/2010 11/14/2010 Inactive hydrocodone-acetaminophen 7.5 mg-650 mg Tab RxNorm: 893973 1 Ta blet(s) PO Q4H 10/13/2010 10/25/2010 Inactive hydrocodone-acetaminophen 7.5 mg-650 mg Tab RxNorm: 438982 1 Ta blet(s) PO Q4H 09/15/2010 09/12/2010 Inactive alprazolam 0.5 mg Tab RxNorm: 150540 1 Tablet(s) PO BID prn 011 09/12/2010 Inactive terbinafine 250 mg Tab RxNorm: 162597 1 Tablet(s) PO QD 09/05/2010 Inactive hydrocodone-acetaminophen 7.5 mg-650 mg Tab RxNorm: 843157 1 Ta blet(s) PO Q4H 08/29/2010 09/17/2010 Inactive alprazolam 0.5 mg Tab RxNorm: 427698 1 Tablet(s) PO BID prn 010 09/27/2010 Inactive alprazolam 0.5 mg Tab RxNorm: 270942 1 Tablet(s) PO BID prn 010 09/06/2010 Inactive Klor-Con 8 mEq Tab RxNorm: 077327 1 Tablet(s) PO QD 08/08/20102010 Inactive hydrocodone-acetaminophen 7.5 mg-650 mg Tab RxNorm: 554740 1 Ta blet(s) PO Q4H 08/08/2010 08/27/2010 Inactive Ambien 10 mg Tab RxNorm: 057519 1 Tablet(s) PO QHS 08/08/2010 Inactive clonidine 0.2 mg Tab RxNorm: 506857 1 Tablet(s) PO TID 08/08/2010 Inactive Premarin 1.25 mg Tab RxNorm: 136665 2 Tablet(s) PO QD 08/08/201009/12 Inactive Ambien 10 mg Tab RxNorm: 509549 1 Tablet(s) PO QHS 07/18/2010 Inactive alprazolam 0.5 mg Tab RxNorm: 138309 1 Tablet(s) PO BID prn 08/07/2010 Inactive hydrocodone-acetaminophen 7.5 mg-650 mg Tab RxNorm: 261410 1 Ta blet(s) PO Q4H 07/12/2010 07/31/2010 Inactive clonidine 0.2 mg Tab RxNorm: 449433 1 Tablet(s) PO TID 06/20/2010 Inactive terbinafine 250 mg Tab RxNorm: 611075 1 Tablet(s) PO QD 05/24/2010 Inactive Clonidine 0.2 mg Tab RxNorm: 709835 1 Tablet(s) PO TID 05/24/201006/2010 Inactive Ambien 10 mg Tab RxNorm: 922348 1 Tablet(s) PO QHS 05/24/2010 Inactive alprazolam 0.5 mg Tab RxNorm: 727763 1 Tablet(s) PO BID 05/24/2010 Inactive Klor-Con 8 mEq Tab RxNorm: 014279 1 Tablet(s) PO QD 05/24/20102009 Inactive alprazolam 0.5 mg Tab RxNorm: 491957 2 Tablet(s) PO QD prn 05/24/20 10 07/17/2010 Inactive triamterene-hydrochlorothiazide 75 mg-50 mg Tab RxNorm: 3108 18 1 Tablet(s) PO QD 05/24/2010 11/19/2010 Inactive Ambien 10 mg Tab RxNorm: 401766 1 Tablet(s) PO QHS 05/23/2010 010 Inactive Alprazolam 0.5 mg Tab RxNorm: 738515 2 Tablet(s) PO QD prn 05/23/2005/23/2010 Inactive Premarin 1.25 mg Tab RxNorm: 098391 2 Tablet(s) PO QD 05/19/201007/12 Inactive Hydrocodone-Acetaminophen 7.5 mg-650 mg Tab RxNorm: 415077 1 Ta blet(s) PO Q4H 05/19/2010 03/20/2011 Inactive Prednisone 20 mg Tab RxNorm: 036466 1 Tablet(s) PO BID 05/17/2010 Inactive Prednisone 20 mg Tab RxNorm: 385972 1 Tablet(s) PO BID 05/06/201001/2010 Inactive Premarin 1.25 mg Tab RxNorm: 655726 Tablet(s) PO 2 M-W-F, and 1 Lv-Mj-Kou-Sun 05/05/2010 08/02/2010 Inactive Premarin 1.25 mg Tab RxNorm: 658711 Tablet(s) PO 2 M-W-F, and 1 Og-Ve-Nhl-Sun 05/04/2010 05/04/2010 Inactive Premarin 1.25 mg Tab RxNorm: 358679 Tablet(s) PO 2 M-W-F, and 1 Gz-Tq-Xib-Sun 05/04/2010 05/03/2010 Inactive Prednisone 20 mg Tab RxNorm: 003536 1 Tablet(s) PO BID 04/27/2010 Inactive Alprazolam 0.5 mg Tab RxNorm: 241740 2 Tablet(s) PO QD prn 04/26/2005/22/2010 Inactive Clindamycin 300 mg Cap RxNorm: 179152 2 Capsule(s) PO TID 04/05/2010 04/18/2010 Inactive Terbinafine 250 mg Tab RxNorm: 960956 1 Tablet(s) PO QD 04/04/2010 Inactive Hydrocodone-Acetaminophen 7.5 mg-650 mg Tab RxNorm: 677213 1 Ta blet(s) PO Q4H 03/30/2010 04/18/2010 Inactive Avelox 400 mg Tab RxNorm: 413152 1 Tablet(s) PO QD 03/09/2010 010 Inactive Hydrocodone-Acetaminophen 7.5 mg-650 mg Tab RxNorm: 519396 1 Ta blet(s) PO Q4H 03/08/2010 03/27/2010 Inactive Alprazolam 0.5 mg Tab RxNorm: 000394 2 Tablet(s) PO QD prn 03/08/20 10 04/25/2010 Inactive Klor-Con 8 mEq Tab RxNorm: 622303 1 Tablet(s) PO QD when takes lasi x 03/07/2010 09/29/2019 Inactive Premarin 1.25 mg Tab RxNorm: 186151 1 Tablet(s) PO QD 03/03/201003/11 Inactive Alprazolam 0.5 mg Tab RxNorm: 199986 1 Tablet(s) PO BID PRN 010 No Stop Date Active triamterene-hydrochlorothiazide 75 mg-50 mg Tab RxNorm: 3108 18 1 Tablet(s) PO QD 02/09/2010 02/03/2011 Inactive Hydrocodone-Acetaminophen 10 mg-750 mg Tab RxNorm: 007354 1 Tablet(s) PO Q4H PRN 02/09/2010 03/20/2011 Inactive Clonidine 0.2 mg Tab RxNorm: 075729 1 Tablet(s) PO TID 01/13/201009/2009 Inactive Alprazolam 0.5 mg Tab RxNorm: 382692 1 Tablet(s) PO BID PRN 010 01/12/2010 Inactive Hydrocodone-Acetaminophen 10 mg-750 mg Tab RxNorm: 681679 1 Tablet(s) PO Q4H PRN 01/13/2010 01/12/2010 Inactive ANGELIQ 1 mg-0.5 mg Tab RxNorm: 9063058 1 Tablet(s) PO QD 12/27/2009 01/23/2010 Inactive Lasix 40 mg Tab RxNorm: 775009 1 Tablet(s) PO QAM 12/14/2009 06/11/20 10 Inactive Vitamin B12 1000mcg Tablet RxNorm: 1 Tablet(s) PO QD No Start Date Active cyclobenzaprine 10 mg tablet RxNorm: 070372 1 Tablet(s) PO TID as needed DO NOT USE WITH BACLOFEN No Start Date Active Vitamin D 5,000 unit Tab RxNorm: 1 Tablet(s) PO QD No Start Date Active vitamin E (dl, acetate) 400 unit Cap RxNorm: 582858 1 Capsule(s ) PO QD No Start Date Active Benadryl 25 mg Cap RxNorm: 8373280 Capsule(s) PO PRN No Start Date Inactive amitriptyline 100 mg tablet RxNorm: 799057 1 Tablet(s) PO QHS No St art Date 11/27/2016 Inactive Zithromax Z-Dustin 250 mg tablet RxNorm: 690413 Tablet(s) PO as di rected No Start Date 07/22/2013 Inactive Klor-Con 8 mEq tablet,extended release RxNorm: 275050 1 Tablet( s) PO BID No Start Date 07/28/2012 Inactive scopolamine 1.5 mg 72 hr Transderm Patch RxNorm: 348305 Application TD Q72H for motion sickness No Start Date 05/25/2013 Inactive Klonopin 1 mg tablet RxNorm: 687037 1-2 Tablet(s) PO QHS as nee ded for sleep No Start Date 06/20/2015 Inactive Klor-Con M20 mEq tablet,extended release RxNorm: 795081 2 Tablet(s) PO BID to use with lasix No Start Date 11/11/2013 Inactive Bystolic 5 mg tablet RxNorm: 868649 1 Tablet(s) PO QD No Start Date 1 Inactive Bystolic 10 mg tablet RxNorm: 835284 1 Tablet(s) PO BID No Start Da te 07/06/2015 Inactive Premarin 1.25 mg Tab RxNorm: 151248 Tablet(s) PO 2 -W-, and 1 [id number]-[id number]-[id number]-Sun No Start Date 05/03/2010 Inactive baclofen 20 mg tablet RxNorm: 871915 1 Tablet(s) PO TID as needed for muscle spasm No Start Date 07/22/2015 Inactive hydrocodone-acetaminophen 7.5 mg-650 mg Tab RxNorm: 855974 1 Tablet(s) PO Q4H as needed for pain No Start Date 03/20/2011 Inactive albuterol sulfate 1.25 mg/3 mL Neb Solution RxNorm: 271621 1 Unit Dose INH Q4H 2boxes No Start Date 09/06/2015 Inactive Butrans 20 mcg/hour Transderm Patch RxNorm: 677903 1 TD WEEKLY apply to skin weekly after removing previous. No Start Date 07/22/2013 Inactive Medrol (Dustin) 4 mg tablets in a dose pack RxNorm: 404091 Tablet(s) PO As Directed No Start Date 07/30/2016 Inactive hydrocodone-acetaminophen 10 mg-325 mg Tab RxNorm: 3780790 1-2 Tablet(s) PO TID as needed for pain No Start Date 03/19/2011 Inactive Klonopin 1 mg tablet RxNorm: 126413 1 Tablet(s) PO QHS No Start Date 02/28/2016 Inactive honey topical RxNorm: topical No Start Date 06/16/2018 Inactive Clonidine 0.2 mg Tab RxNorm: 321691 1 Tablet(s) PO TID No Start Date 01/12/2010 Inactive ketorolac 10 mg tablet RxNorm: 726105 1 Tablet(s) PO Q8H No Start D ate 03/18/2012 Inactive as needed for headache Singulair 10 mg Tab RxNorm: 013838 1 Tablet(s) PO QD No Start Date Inactive Premarin 1.25 mg Tab RxNorm: 700812 1 Tablet(s) PO QD No Start Date 1 Inactive Flonase 50 mcg/Actuation Nasal [place] RxNorm: 1287367 1 [place] CECELIA AL BID No Start Date 03/18/2012 Inactive Terbinafine 250 mg Tab RxNorm: 989713 1 Tablet(s) PO QD No Start Da te 04/03/2010 Inactive Fexofenadine 180 mg Tab RxNorm: 0082316 1 Tablet(s) PO QD No Start Date 09/06/2015 Inactive baclofen 20 mg tablet RxNorm: 321459 1 Tablet(s) PO TID as needed N o Start Date 05/25/2014 Inactive Diovan 160 mg Tab RxNorm: 648011 1 Tablet(s) PO QD No Start Date 09/12 Inactive mupirocin 2 % topical ointment RxNorm: 455853 1 Application TOP QID No Start Date 04/25/2016 Inactive ZOFRAN ODT 4 mg Tab, Rapid Dissolve RxNorm: 549253 1 Tablet(s) PO Q4H No Start Date 03/18/2012 Inactive as needed for nausea and vomiting Alprazolam 0.5 mg Tab RxNorm: 768671 1 Tablet(s) PO BID PRN No Star t Date 01/12/2010 Inactive cyclobenzaprine 10 mg tablet RxNorm: 952817 1 Tablet(s) PO TID as needed for muscle spasm No Start Date 10/08/2017 Inactive Albuterol 0.083% Aerosol Solution RxNorm: 1 Appl ication INH Q4H Use one ampule every 4 hrs with nebulizer as needed for shortness of breath. No Start Date 10/09/2010 Inactive lorazepam 1 mg tablet RxNorm: 468114 1 1/2 Tablet(s) PO QHS No Star t Date 02/02/2016 Inactive Melatonin 3 mg Tab RxNorm: 934965 Tablet(s) PO PRN No Start Date 07/11 Inactive Medrol (Dustin) 4 mg Tabs in a Dose Pack RxNorm: 279492 Tablet(s) PO N o Start Date 11/28/2010 Inactive lorazepam 1 mg tablet RxNorm: 381863 1 Tablet(s) PO QHS as need ed for sleep No Start Date 01/30/2016 Inactive hydrocodone-acetaminophen 10 mg-325 mg Tab RxNorm: 1508807 1-2 Tablet(s) PO QID as needed for severe pain No Start Date 03/24/2012 Inactive celecoxib 200 mg capsule RxNorm: 249627 1 Capsule(s) PO BID No Star t Date 06/26/2019 Inactive amlodipine 5 mg-benazepril 20 mg capsule RxNorm: 329430 1 Capsu le(s) PO QD No Start Date 04/10/2017 Inactive Bystolic 20 mg tablet RxNorm: 198740 1/2 Tablet(s) PO QAM No Start Date 01/23/2016 Inactive Bystolic 20 mg tablet RxNorm: 106402 1 Tablet(s) PO QAM No Start Da te 04/25/2016 Inactive Ambien 10 mg Tab RxNorm: 687087 1 Tablet(s) PO QHS No Start Date 05/11 Inactive Klor-Con 8 mEq Tab RxNorm: 555619 1 Tablet(s) PO QD when takes lasix No Start Date 03/06/2010 Inactive aspirin 81 mg tablet RxNorm: 813158 1 Tablet(s) PO QD No Start Date 0 01/29/2018 Inactive hydrocodone-acetaminophen 10 mg-325 mg Tab RxNorm: 1821309 1-2 T ablet(s) PO QID No Start Date 01/10/2012 Inactive Bystolic 10 mg tablet RxNorm: 998135 1 Tablet(s) PO QAM take one daily in the morning. No Start Date 05/28/2013 Inactive nystatin 100,000 unit/mL Oral Susp RxNorm: 735055 5 Milliliter( s) PO QID No Start Date 03/18/2012 Inactive swish and spit scopolamine 1.5 mg 72 hr Transderm Patch RxNorm: 372068 1 Unit Dose TD Q72H for motion sickness No Start Date 12/23/2013 Inactive Hydrocodone-Acetaminophen 10 mg-750 mg Tab RxNorm: 099984 1 Tablet(s) PO Q4H PRN No Start Date 01/12/2010 Inactive Soma 350 mg tablet RxNorm: 287535 1 Tablet(s) PO TID as needed for spasm No Start Date 01/12/2013 Inactive baclofen 10 mg tablet RxNorm: 397263 1 Tablet(s) PO TID as needed for muscle spasm No Start Date 09/18/2019 Inactive Soma 350 mg Tab RxNorm: 710018 1 Tablet(s) PO TID for spasm No Star t Date 01/31/2012 Inactive Co Q-10 400 mg capsule RxNorm: 775409 1 Capsule(s) PO QD No Start D ate 01/21/2019 Inactive nystatin 100,000 unit/gram topical cream RxNorm: 603983 Applica tion TOP BID No Start Date 03/22/2015 Inactive Exforge 5 mg-160 mg Tab RxNorm: 801450 1 Tablet(s) PO QD No Start D ate 10/09/2010 Inactive Hydrocodone-Acetaminophen 7.5 mg-650 mg Tab RxNorm: 107115 1 Ta blet(s) PO Q4H No Start Date 03/07/2010 Inactive Robaxin-750 750 mg Tab RxNorm: 249804 1-2 Tablet(s) PO TID prn spasm No Start Date 05/21/2011 Inactive amlodipine 5 mg tablet RxNorm: 020529 1 Tablet(s) PO QHS No Start D ate 09/29/2015 Inactive oxycodone-acetaminophen 10 mg-325 mg tablet RxNorm: 3592180 1-2 Tablet(s) PO Q6H No Start Date 06/16/2018 Inactive Triamterene-Hydrochlorothiazide 75 mg-50 mg Tab RxNorm: 3108 18 1 Tablet(s) PO QD No Start Date 02/08/2010 Inactive Alprazolam 0.5 mg Tab RxNorm: 551824 2 Tablet(s) PO QD prn No Start Date 03/07/2010 Inactive Bystolic 20 mg tablet RxNorm: 685543 1 Tablet(s) PO QAM No Start Da te 08/17/2015 Inactive ketorolac 10 mg tablet RxNorm: 547508 1 Tablet(s) PO QID prn he adache No Start Date 07/17/2012 Inactive acyclovir 800 mg Tab RxNorm: 992955 1 Tablet(s) PO BID No Start Date 03/18/2012 Inactive duloxetine 60 mg capsule,delayed release RxNorm: 236202 1 Capsu le(s) PO QD No Start Date 09/29/2015 Inactive Norvasc 5 mg tablet RxNorm: 414178 1 Tablet(s) PO QHS No Start Date 1 10/18/2014 Inactive promethazine 25 mg tablet RxNorm: 596196 1 Tablet(s) PO Q8H use sparingly No Start Date 07/22/2013 Inactive alprazolam 0.5 mg tablet RxNorm: 071324 3 Tablet(s) PO QHS No Start Date 06/06/2015 Inactive Lunesta 3 mg tablet RxNorm: 432785 1 Tablet(s) PO QHS No Start Date 0 09/20/2017 Inactive hydrocodone-acetaminophen 10 mg-325 mg Tab RxNorm: 2312149 1-2 Tablet(s) PO TID as needed for pain No Start Date 12/10/2011 Inactive Coricidin HBP Cough & Cold 4 mg-30 mg Tab RxNorm: 7306337 Tablet (s) PO PRN No Start Date 10/09/2010 Inactive Bactroban 2 % Ointment RxNorm: 741049 Application TOP QID to so res No Start Date 02/22/2012 Inactive Flonase 50 mcg/actuation Nasal [place] RxNorm: 788576 2 [place] QHS No Start Date 03/03/2014 Inactive Medication Administered No Medication Administered data Immunizations Vaccine Codes Date Status Tetanus, Diptheria, Pertussis CVX: 115 02/27/2014 Results Observation Observation Code Item Item Code Result Date S ervice Location COMPREHENS[facility] MET[facility] 02870 AST 15 U/L 2019 Unknown [facility] 96906 ALT 13 U/L 2019 Unknown [facility] 29553 BUN 12 mg/dL 2019 Unknown [facility] 23945 ALBUMIN 3.9 g/dL 2019 Unknown [facility] 13174 CHLORIDE 97 mmol/L 2019 Unknown [facility] 10394 Bili Total 0.4 mg/dL 09/29 Unknown COMPREHENS[facility] METABOLIC 21661 ALK PHOS 130 U/L 2019 Unknown [facility] 32735 SODIUM 136 mmol/L 09/29 Unknown [facility]PREHENS[facility] METABOL[facility] 69056 CREATININE 0.92 mg/dL 09/11 Unknown [facility] 67983 CALCIUM 9.1 mg/dL 2019 Unknown [facility] 77262 POTASSIUM 4.4 mmol/L 09/29 Unknown [facility] METABOL[facility] 09680 Total Protein 6.2 g/dL Unknown [facility] MET[facility] 91258 Glucose 391 mg/dL 2019 Unknown [facility] MET[facility] 37468 Bicarbonate 30 mmol/L 09/11 Unknown COMPREHENSIVE METABOLIC 62294 AGAP 9 mmol/L 2019 Unknown MEAN GLUC 3776943 Calc Mean Gluc 332 mg/dL 09/29/2019 Unkn own COMPLETE BLOOD COUNT [id number] WBC 7.0 10e9/L 09/29/19 Unknown COMPLETE BLOOD COUNT 4181911 RBC 4.69 10e12/L 2019 Unknown COMPLETE BLOOD COUNT 6471535 HEMOGLOBIN 14.6 g/dL 09/29/19 Unknown COMPLETE BLOOD COUNT 1636285 HEMATOCRIT 45.2 % 09/29/19 Unknown COMPLETE BLOOD COUNT 8904479 MCV 96.4 fL 0 Unknown COMPLETE BLOOD COUNT [id number] MCH 31.1 pg 0 Unknown COMPLETE BLOOD COUNT 5201512 MCHC 32.3 g/dL 0 Unknown COMPLETE BLOOD COUNT 1991650 PLATELET COUNT 209 10e9/L Unknown COMPLETE BLOOD COUNT 8129225 Mean Plt Volume 9.8 fL Unknown COMPLETE BLOOD COUNT 7196440 Neut Auto 48.1 % 0 Unknown COMPLETE BLOOD COUNT 3793522 Lymph Auto 36.5 % 09/29/19 20 Unknown COMPLETE BLOOD COUNT 6797587 Iron Auto 8.6 % 0 Unknown COMPLETE BLOOD COUNT 6049461 RDW 13.4 % 0 Unknown COMPLETE BLOOD COUNT 9474065 Eos Auto 6.5 % 0 Unknown COMPLETE BLOOD COUNT 5516658 Baso Auto 0.3 % 0 Unknown COMPLETE BLOOD COUNT 1277617 Neutrophil Abs 3.37 10e9/L Unknown COMPLETE BLOOD COUNT 0231688 Lymphocyte Abs 2.56 10e9/L Unknown COMPLETE BLOOD COUNT 0174759 Monocyte Abs 0.60 10e9/L 09/11 Unknown COMPLETE BLOOD COUNT 8044596 Eosinophil Abs 0.46 10e9/L Unknown COMPLETE BLOOD COUNT 7155882 RDW-SD 45.9 fL 0 Unknown COMPLETE BLOOD COUNT 3679189 Basophil Abs 0.02 10e9/L 09/11 Unknown LIPID GROUP 15025 Cholesterol 248 mg/dL 09/29/2019 Unkno wn LIPID GROUP 97819 Triglyceride 898 mg/dL 09/29/2019 Unkn own LIPID GROUP 72198 HDL CHOLESTEROL 41 mg/dL 09/29/2019 U nknown LIP[facility] GROUP 13747 Chol/HDL Ratio 6.05 ratio 09/29/2019 U nknown LIP[facility] GROUP 43620 NON-HDL Chol 207 mg/dL 09/29/2019 Unkn own LIPID GROUP 86875 LDL Cholesterol N/A Trig >400 020 Unknown GLYCOSYLATED HEMOGLOBIN TEST 46282 Hgb A1c 15485-0 13.2 % 0 09/29/2019 Unknown FREE T4 34988 T4 Free 0.75 ng/dL 09/29/2019 Unknown GFR CALC 1998817 GFR Non Afr Amr >60 mL/min 09/29/2019 Un known GFR CALC 3014909 GFR Afr Amr >60 mL/min 09/29/2019 Unknow n THYROID STIMULATING HORMONE 46949 TSH 4.245 uIU/mL 09/29/2019 Unknown COMPLETE BLOOD COUNT 5063081 WBC 10.7 10e9/L 018 Unknown COMPLETE BLOOD COUNT 2731664 RBC 4.59 10e12/L 2017 Unknown COMPLETE BLOOD COUNT 0476931 HEMOGLOBIN 14.8 g/dL 12/11/19 18 Unknown COMPLETE BLOOD COUNT 1972247 HEMATOCRIT 44.9 % 12/11/19 18 Unknown COMPLETE BLOOD COUNT 9363330 MCV 97.8 fL 8 Unknown COMPLETE BLOOD COUNT 9995578 MCH 32.2 pg 8 Unknown COMPLETE BLOOD COUNT 6666100 MCHC 33.0 g/dL 8 Unknown COMPLETE BLOOD COUNT 5130148 PLATELET COUNT 261 10e9/L 10/2017 Unknown COMPLETE BLOOD COUNT 9532353 Mean Plt Volume 9.5 fL 10/2017 Unknown COMPLETE BLOOD COUNT 8811844 Neut Auto 59.9 % 8 Unknown COMPLETE BLOOD COUNT 8246947 Lymph Auto 27.4 % 12/11/19 18 Unknown COMPLETE BLOOD COUNT 0669246 Iron Auto 8.2 % 8 Unknown COMPLETE BLOOD COUNT 1411535 RDW 13.3 % 8 Unknown COMPLETE BLOOD COUNT 2669036 Eos Auto 4.1 % 8 Unknown COMPLETE BLOOD COUNT 8320013 Baso Auto 0.4 % 8 Unknown COMPLETE BLOOD COUNT 1360756 Neutrophil Abs 6.41 10e9/L Unknown COMPLETE BLOOD COUNT 2430026 Lymphocyte Abs 2.93 10e9/L Unknown COMPLETE BLOOD COUNT 8396092 Monocyte Abs 0.88 10e9/L 10/2017 Unknown COMPLETE BLOOD COUNT 3804436 Eosinophil Abs 0.44 10e9/L Unknown COMPLETE BLOOD COUNT 9170864 RDW-SD 46.2 fL 8 Unknown COMPLETE BLOOD COUNT 6630707 Basophil Abs 0.04 10e9/L 10/2017 Unknown THYROID STIMULATING HORMONE 15455 TSH 4.015 uIU/mL 12/10/2017 Unknown COMPREHENSIVE METABOLIC 65014 AST 25 U/L 2017 Unknown COMPREHENSIVE METABOLIC 78106 ALT 17 U/L 2017 Unknown COMPREHENSIVE METABOLIC 37010 BUN 19 mg/dL 2017 Unknown COMPREHENSIVE METABOLIC 32770 ALBUMIN 4.0 g/dL 2017 Unknown COMPREHENSIVE METABOLIC 26691 CHLORIDE 91 mmol/L 2017 Unknown COMPREHENSIVE METABOLIC 25918 Bili Total 0.5 mg/dL 12/10 Unknown COMPREHENSIVE METABOLIC 91528 ALK PHOS 75 U/L 2017 Unknown COMPREHENSIVE METABOLIC 72188 SODIUM 136 mmol/L 12/10 Unknown COMPREHENSIVE METABOLIC 34768 CREATININE 1.05 mg/dL 10/2017 Unknown COMPREHENSIVE METABOLIC 96355 CALCIUM 8.9 mg/dL 2017 Unknown COMPREHENSIVE METABOLIC 31720 POTASSIUM 3.4 mmol/L 12/10 Unknown COMPREHENSIVE METABOLIC 57382 Total Protein 6.5 g/dL Unknown COMPREHENSIVE METABOLIC 10064 Glucose 138 mg/dL 2017 Unknown COMPREHENSIVE METABOLIC 17530 Bicarbonate 35 mmol/L 10/2017 Unknown COMPREHENSIVE METABOLIC 61281 AGAP 10 mmol/L 2017 Unknown MEAN GLUC 4694331 Calc Mean Gluc 171 mg/dL 12/10/2017 Unkn own LIPID GROUP 79634 Cholesterol 204 mg/dL 12/10/2017 Unkno wn LIPID GROUP 70132 Triglyceride 411 mg/dL 12/10/2017 Unkn own LIP[facility] GROUP 15485 HDL CHOLESTEROL 50 mg/dL 12/10/2017 U nknown LIP[facility] GROUP 17797 Chol/HDL Ratio 4.08 ratio 12/10/2017 U nknown LIP[facility] GROUP 14384 NON-HDL Chol 154 mg/dL 12/10/2017 Unkn own LIPID GROUP 85688 LDL Cholesterol N/A Trig >400 018 Unknown GLYCOSYLATED HEMOGLOBIN TEST 87312 Hgb A1c 50403-5 7.6 % 0 12/10/2017 Unknown FREE T4 84510 T4 Free 1.40 ng/dL 12/10/2017 Unknown GFR CALC 4073372 GFR Non Afr Amr 55 mL/min 12/10/2017 Unk nown GFR CALC 2602072 GFR Afr Amr >60 mL/min 12/10/2017 Unknow n GFR CALC 5399581 GFR Non Afr Amr 48 mL/min 06/28/2017 Unk nown GFR CALC 3320953 GFR Afr Amr 59 mL/min 06/28/2017 Unknown COMPREHENSIVE METABOLIC 91568 AST 32 U/L 2016 Unknown COMPREHENSIVE METABOLIC 66779 ALT 22 U/L 2016 Unknown COMPREHENSIVE METABOLIC 34746 BUN 23 mg/dL 2016 Unknown COMPREHENSIVE METABOLIC 01256 ALBUMIN 4.7 g/dL 2016 Unknown COMPREHENSIVE METABOLIC 63474 CHLORIDE 89 mmol/L 2016 Unknown COMPREHENSIVE METABOLIC 04529 Bili Total 0.5 mg/dL 06/28 Unknown COMPREHENSIVE METABOLIC 45713 ALK PHOS 90 U/L 2016 Unknown COMPREHENSIVE METABOLIC 57645 SODIUM 135 mmol/L 06/28 Unknown COMPREHENSIVE METABOLIC 48474 CREATININE 1.18 mg/dL 06/10 Unknown COMPREHENSIVE METABOLIC 15918 CALCIUM 9.7 mg/dL 2016 Unknown COMPREHENSIVE METABOLIC 40371 POTASSIUM 3.5 mmol/L 06/28 Unknown COMPREHENSIVE METABOLIC 82378 Total Protein 7.7 g/dL Unknown COMPRE[facility]ENS[facility] METABOLIC 95252 Glucose 129 mg/dL 2016 Unknown COMPREHENSIVE METABOLIC 19121 Bicarbonate 34 mmol/L 06/10 Unknown COMPREHENSIVE METABOLIC 69104 AGAP 12 mmol/L 2016 Unknown [facility] 60950 HDL TEST 64 MG/DL 08/27/2014 Unknown [facility] 19911 TRIG 222 MG/DL 08/27/2014 Unknown [facility] 86304 TEST LDL 209 MG/DL 08/27/2014 Unknown [facility] 34070 CHOL 317 MG/DL 08/27/2014 Unknown [facility] 08014 RCHOL/HDL 4.95 RATIO 08/27/2014 Unknow n L[facility] 13362 NON-HDL CH 253 MG/DL 08/27/2014 Unknow n GFR CALC 5388317 GFR AA >60 ML/MIN 08/27/2014 Unknown GFR CALC 8910240 GFR NON-AA >60 ML/MIN 08/27/2014 Unknown COMPLETE BLOOD COUNT 4633447 WBC 7.0 10e9/L 08/27/20 14 Unknown COMPLETE BLOOD COUNT 5414997 RBC 4.98 10e12/L 2013 Unknown COMPLETE BLOOD COUNT 6097147 HGB 15.6 g/dL 4 Unknown COMPLETE BLOOD COUNT 9078706 HCT DET 46.5 % 4 Unknown COMPLETE BLOOD COUNT 0377018 MCV 93.4 fL 4 Unknown COMPLETE BLOOD COUNT 1326917 MCH 31.3 pg 4 Unknown COMPLETE BLOOD COUNT 1834468 MCHC 33.5 g/dL 4 Unknown COMPLETE BLOOD COUNT 4470100 PLT 309 10e9/L 08/27/20 14 Unknown COMPLETE BLOOD COUNT 8520205 MPV 9.6 fL 4 Unknown COMPLETE BLOOD COUNT 6552563 CADEN % 57.2 % 4 Unknown COMPLETE BLOOD COUNT 3833720 LY % 33.2 % 4 Unknown COMPLETE BLOOD COUNT 1284868 MON % 7.3 % 4 Unknown COMPLETE BLOOD COUNT 9746209 EOS % 2.0 % 4 Unknown COMPLETE BLOOD COUNT 8934350 BASO % 0.3 % 4 Unknown COMPLETE BLOOD COUNT 6466876 RDW 13.7 % 4 Unknown COMPLETE BLOOD COUNT 9218745 ABS CADEN 4.00 10e9/L 014 Unknown COMPLETE BLOOD COUNT 2736663 ABS LYMPH 2.32 10e9/L 014 Unknown COMPLETE BLOOD COUNT 4611435 ABS MONO 0.51 10e9/L 014 Unknown COMPLETE BLOOD COUNT 3881012 ABS EOS 0.14 10e9/L 014 Unknown COMPLETE BLOOD COUNT 5488696 ABS BASO 0.02 10e9/L 014 Unknown COMPLETE BLOOD COUNT 3265556 RDW-SD 45.1 fL 4 Unknown COMPREHENSIVE METABOLIC 49304 AST 13 U/L 2013 Unknown COMPREHENSIVE METABOLIC 49104 ALT 11 IU/L 2013 Unknown COMPREHENSIVE METABOLIC 66831 BUN 23 MG/DL 2013 Unknown COMPREHENSIVE METABOLIC 60811 ALBUMIN 4.4 GM/DL 2013 Unknown COMPREHENSIVE METABOLIC 36635 CHLORIDE 99 MMOL/L 2013 Unknown COMPREHENSIVE METABOLIC 42687 BILI TOT 0.5 MG/DL 2013 Unknown COMPREHENSIVE METABOLIC 31775 ALK PHOS 56 U/L 2013 Unknown COMPREHENSIVE METABOLIC 26469 SODIUM 138 MMOL/L 08/27 Unknown COMPREHENSIVE METABOLIC 95170 CREATININE 0.95 MG/DL 08/10 Unknown COMPREHENSIVE METABOLIC 28659 CALCIUM 9.8 MG/DL 2013 Unknown COMPREHENSIVE METABOLIC 10488 POTASSIUM 3.5 MMOL/L 08/27 Unknown COMPREHENSIVE METABOLIC 95993 PROT TOT 6.8 GM/DL 2013 Unknown COMPREHENSIVE METABOLIC 70814 Glucose 90 MG/DL 2013 Unknown COMPREHENSIVE METABOLIC 53022 BICARB 34 MMOL/L 2013 Unknown COMPREHENSIVE METABOLIC 91412 ANION GAP 5 MEQ/L 2013 Unknown LIPASE 92161 LIPASE 11 IU/L 07/21/2014 Unknown AMYLASE 33964 AMYLASE 39 IU/L 07/21/2014 Unknown HEMOGLOBIN A1C (GLYCOSYLATED) 2501312 A1C [facility] 78906-0 6.2 % 03/05/2013 Unknown THYROID STIMULATING HORMONE 80129 TSH 6.986 uIU/ML 03/05/2013 Unknown COMPLETE BLOOD COUNT 3602204 WBC 12.7 10e9/L 013 Unknown COMPLETE BLOOD COUNT 1665692 RBC 4.53 10e12/L 2012 Unknown COMPLETE BLOOD COUNT 4637609 HGB 14.7 g/dL 3 Unknown COMPLETE BLOOD COUNT 8478140 HCT DET 43.1 % 3 Unknown COMPLETE BLOOD COUNT 1163089 MCV 95.1 fL 3 Unknown COMPLETE BLOOD COUNT 3937457 MCH 32.5 pg 3 Unknown COMPLETE BLOOD COUNT 9605922 MCHC 34.1 g/dL 3 Unknown COMPLETE BLOOD COUNT 5091216 PLT 346 10e9/L 03/05/20 13 Unknown COMPLETE BLOOD COUNT 4450142 MPV 9.5 fL 3 Unknown COMPLETE BLOOD COUNT 9481945 CADEN % 67.6 % 3 Unknown COMPLETE BLOOD COUNT 8202869 LY % 22.1 % 3 Unknown COMPLETE BLOOD COUNT 2554339 MON % 6.6 % 3 Unknown COMPLETE BLOOD COUNT 8931755 EOS % 3.3 % 3 Unknown COMPLETE BLOOD COUNT 1576763 BASO % 0.4 % 3 Unknown COMPLETE BLOOD COUNT 2481340 RDW 14.0 % 3 Unknown COMPLETE BLOOD COUNT 2842082 ABS CADEN 8.59 10e9/L 013 Unknown COMPLETE BLOOD COUNT [id number] ABS LYMPH 2.81 10e9/L 013 Unknown COMPLETE BLOOD COUNT 0216570 ABS MONO 0.84 10e9/L 013 Unknown COMPLETE BLOOD COUNT 7277862 ABS EOS 0.42 10e9/L 013 Unknown COMPLETE BLOOD COUNT 5746172 ABS BASO 0.05 10e9/L 013 Unknown COMPLETE BLOOD COUNT 5196607 RDW-SD 46.0 fL 3 Unknown FREE T4 37694 FREE T4 1.14 NG/DL 03/05/2013 Unknown COMPREHENSIVE METABOLIC 62515 AST 17 U/L 2012 Unknown COMPREHENSIVE METABOLIC 88939 ALT 12 IU/L 2012 Unknown COMPREHENSIVE METABOLIC 42670 BUN 24 MG/DL 2012 Unknown COMPREHENSIVE METABOLIC 92832 ALBUMIN 4.2 GM/DL 2012 Unknown COMPREHENSIVE METABOLIC 76683 CHLORIDE 93 MMOL/L 2012 Unknown COMPREHENSIVE METABOLIC 44158 BILI TOT 0.5 MG/DL 2012 Unknown COMPREHENSIVE METABOLIC 54652 ALK PHOS 75 U/L 2012 Unknown COMPREHENSIVE METABOLIC 47725 SODIUM 141 MMOL/L 03/05 Unknown COMPREHENSIVE METABOLIC 07035 CREATININE 1.36 MG/DL 02/09 Unknown COMPREHENSIVE METABOLIC 10727 CALCIUM 9.2 MG/DL 2012 Unknown COMPREHENSIVE METABOLIC 65065 POTASSIUM 3.1 MMOL/L 03/05 Unknown COMPREHENSIVE METABOLIC 71411 PROT TOT 6.9 GM/DL 2012 Unknown COMPREHENSIVE METABOLIC 68802 Glucose 123 MG/DL 2012 Unknown COMPREHENSIVE METABOLIC 63165 BICARB 36 MMOL/L 2012 Unknown COMPREHENSIVE METABOLIC 99408 ANION GAP 12 MEQ/L 2012 Unknown GFR CALC 5215244 GFR AA 51.0L ML/MIN 03/05/2013 Unknow n GFR CALC 9937934 GFR NON-AA 42.0L ML/MIN 03/05/2013 Unkno wn COMPREHENSIVE METABOLIC 38205 AST 14 U/L 2012 Unknown COMPREHENSIVE METABOLIC 05384 ALT 11 IU/L 2012 Unknown COMPREHENSIVE METABOLIC 66710 BUN 16 MG/DL 2012 Unknown COMPREHENSIVE METABOLIC 09074 ALBUMIN 4.2 GM/DL 2012 Unknown COMPREHENSIVE METABOLIC 95160 CHLORIDE 98 MMOL/L 2012 Unknown COMPREHENSIVE METABOLIC 70228 BILI TOT 0.4 MG/DL 2012 Unknown COMPREHENSIVE METABOLIC 14695 ALK PHOS 77 U/L 2012 Unknown COMPREHENSIVE METABOLIC 79180 SODIUM 139 MMOL/L 09/25 Unknown COMPREHENSIVE METABOLIC 01843 CREATININE 0.86 MG/DL 09/10 Unknown COMPREHENSIVE METABOLIC 71492 CALCIUM 9.5 MG/DL 2012 Unknown COMPREHENSIVE METABOLIC 85112 POTASSIUM 3.8 MMOL/L 09/25 Unknown COMPREHENSIVE METABOLIC 51323 PROT TOT 6.8 GM/DL 2012 Unknown COMPREHENSIVE METABOLIC 61083 Glucose 91 MG/DL 2012 Unknown COMPREHENSIVE METABOLIC 79350 BICARB 32 MMOL/L 2012 Unknown COMPREHENSIVE METABOLIC 86643 ANION GAP 9 MEQ/L 2012 Unknown FREE T4 73253 FREE T4 0.98 NG/DL 09/25/2012 Unknown THYROID STIMULATING HORMONE 92626 TSH 1.736 uIU/ML 09/25/2012 Unknown C-REACTIVE PROTEIN (CRP) QUANT 32131 CRP 2.3 MG/DL 09/25/2012 Unknown COMPLETE BLOOD COUNT 1773541 WBC 11.9 10e9/L 013 Unknown COMPLETE BLOOD COUNT 1588038 RBC 4.87 10e12/L 2012 Unknown COMPLETE BLOOD COUNT 7110795 HGB 15.1 g/dL 3 Unknown COMPLETE BLOOD COUNT 9971155 HCT DET 44.8 % 3 Unknown COMPLETE BLOOD COUNT 7827069 MCV 92.0 fL 3 Unknown COMPLETE BLOOD COUNT 2907272 MCH 31.0 pg 3 Unknown COMPLETE BLOOD COUNT 9757911 MCHC 33.7 g/dL 3 Unknown COMPLETE BLOOD COUNT 8129589 PLT 343 10e9/L 09/25/19 13 Unknown COMPLETE BLOOD COUNT 5320429 MPV 9.0 fL 3 Unknown COMPLETE BLOOD COUNT 2855706 CADEN % 68.2 % 3 Unknown COMPLETE BLOOD COUNT 5083120 LY % 22.4 % 3 Unknown COMPLETE BLOOD COUNT 6173040 MON % 6.4 % 3 Unknown COMPLETE BLOOD COUNT 2679017 EOS % 2.7 % 3 Unknown COMPLETE BLOOD COUNT 4724684 BASO % 0.3 % 3 Unknown COMPLETE BLOOD COUNT 7801095 RDW 13.8 % 3 Unknown COMPLETE BLOOD COUNT 6419280 ABS CADEN 8.12 10e9/L 013 Unknown COMPLETE BLOOD COUNT 5532214 ABS LYMPH 2.67 10e9/L 013 Unknown COMPLETE BLOOD COUNT 0927275 ABS MONO 0.76 10e9/L 013 Unknown COMPLETE BLOOD COUNT 1988757 ABS EOS 0.32 10e9/L 013 Unknown COMPLETE BLOOD COUNT 5011112 ABS BASO 0.04 10e9/L 013 Unknown COMPLETE BLOOD COUNT 2846913 RDW-SD 45.6 fL 3 Unknown GFR CALC 0015376 GFR AA >60 ML/MIN 09/25/2012 Unknown GFR CALC 6369834 GFR NON-AA >60 ML/MIN 09/25/2012 Unknown ERYTHROCYTE SEDIMENTATION RATE 37851 ESR 19 MM/HR 05/06/2012 Unknown VITAMIN B 12 FOLIC ACID 94523|15847 VIT B 12 922 PG/ML 04/11 Unknown VITAMIN B 12 FOLIC ACID 41743|90253 FOLIC ACID 13.6 NG/ML Unknown URIC ACID 03028 URIC ACID 7.8 MG/DL 05/06/2012 Unknown COMPLETE BLOOD COUNT 02900 WBC 11.9 10e9/L 012 Unknown COMPLETE BLOOD COUNT 23698 RBC 5.30 10e12/L 2011 Unknown COMPLETE BLOOD COUNT 97781 HGB 16.6 g/dL 2 Unknown COMPLETE BLOOD COUNT 26779 HCT DET 47.2 % 2 Unknown COMPLETE BLOOD COUNT 20544 MCV 89.1 fL 2 Unknown COMPLETE BLOOD COUNT 35785 MCH 31.3 pg 2 Unknown COMPLETE BLOOD COUNT 59843 MCHC 35.2 g/dL 2 Unknown COMPLETE BLOOD COUNT 43328 PLT 362 10e9/L 05/06/20 12 Unknown COMPLETE BLOOD COUNT 57225 MPV 9.4 fL 2 Unknown COMPLETE BLOOD COUNT 13017 CADEN % 68.2 % 2 Unknown COMPLETE BLOOD COUNT 68013 LY % 22.0 % 2 Unknown COMPLETE BLOOD COUNT 99179 MON % 6.9 % 2 Unknown COMPLETE BLOOD COUNT 63031 EOS % 2.6 % 2 Unknown COMPLETE BLOOD COUNT 24842 BASO % 0.3 % 2 Unknown COMPLETE BLOOD COUNT 81202 RDW 12.8 % 2 Unknown COMPLETE BLOOD COUNT 75648 ABS CADEN 8.12 10e9/L 012 Unknown COMPLETE BLOOD COUNT 65494 ABS LYMPH 2.62 10e9/L 012 Unknown COMPLETE BLOOD COUNT 70861 ABS MONO 0.82 10e9/L 012 Unknown COMPLETE BLOOD COUNT 17989 ABS EOS 0.31 10e9/L 012 Unknown COMPLETE BLOOD COUNT 71726 ABS BASO 0.04 10e9/L 012 Unknown COMPLETE BLOOD COUNT 99935 RDW-SD 41.5 fL 2 Unknown GFR CALC 9397631 GFR AA >60 ML/MIN 05/06/2012 Unknown GFR CALC 4714470 GFR NON-AA 58.0L ML/MIN 05/06/2012 Unkno wn FREE T4 37450 FREE T4 1.15 NG/DL 05/06/2012 Unknown THYROID STIMULATING HORMONE 91222 TSH 1.568 uIU/ML 05/06/2012 Unknown COMPREHENSIVE METABOLIC 10787 AST 20 U/L 2011 Unknown COMPREHENSIVE METABOLIC 82571 ALT 12 IU/L 2011 Unknown COMPREHENSIVE METABOLIC 38719 BUN 20 MG/DL 2011 Unknown COMPREHENSIVE METABOLIC 09536 ALBUMIN 4.5 GM/DL 2011 Unknown COMPREHENSIVE METABOLIC 47183 CHLORIDE 91 MMOL/L 2011 Unknown COMPREHENSIVE METABOLIC 21740 BILI TOT 0.4 MG/DL 2011 Unknown COMPREHENSIVE METABOLIC 40870 ALK PHOS 73 U/L 2011 Unknown COMPREHENSIVE METABOLIC 35098 SODIUM 139 MMOL/L 05/06 Unknown COMPREHENSIVE METABOLIC 59911 CREATININE 1.02 MG/DL 04/11 Unknown COMPREHENSIVE METABOLIC 33147 CALCIUM 9.7 MG/DL 2011 Unknown COMPREHENSIVE METABOLIC 97287 POTASSIUM 3.1 MMOL/L 05/06 Unknown COMPREHENSIVE METABOLIC 63977 PROT TOT 7.3 GM/DL 2011 Unknown COMPREHENSIVE METABOLIC 11098 Glucose 118 MG/DL 2011 Unknown COMPREHENSIVE METABOLIC 74142 BICARB 33 MMOL/L 2011 Unknown COMPREHENSIVE METABOLIC 60786 ANION GAP 15 MEQ/L 2011 Unknown Procedures Procedure Codes Date ROUTINE VENIPUNCTURE CPT-4: 71220 09/29/2019 URINALYSIS NONAUTO W/O SCOPE CPT-4: 99939 09/29/2019 COMPREHEN METABOLIC PANEL CPT-4: 05721 09/29/2019 LIPID PANEL CPT-4: 48856 09/29/2019 A1C HPLC CPT-4: 70915 09/29/2019 ASSAY OF FREE THYROXINE CPT-4: 20518 09/29/2019 ASSAY THYROID STIM HORMONE CPT-4: 20220 09/29/2019 COMPLETE CBC W/AUTO DIFF WBC CPT-4: 19913 09/29/2019 URINALYSIS NONAUTO W/O SCOPE CPT-4: 55814 09/30/2018 MICROALBUMIN QUANTITATIVE CPT-4: 05040 09/30/2018 CEFTRIAXONE SODIUM INJECTION CPT-4: J0696 06/19/2018 THER/PROPH/DIAG INJ SC/IM CPT-4: 75279 06/19/2018 CEFTRIAXONE SODIUM INJECTION CPT-4: J0696 06/17/2018 THER/PROPH/DIAG INJ SC/IM CPT-4: 21439 06/17/2018 THER/PROPH/DIAG INJ SC/IM CPT-4: 21278 05/16/2018 KETOROLAC TROMETHAMINE INJ CPT-4: J1885 05/16/2018 ONDANSETRON HCL INJECTION CPT-4: J2405 05/16/2018 THER/PROPH/DIAG INJ SC/IM CPT-4: 11125 05/16/2018 ROUTINE VENIPUNCTURE CPT-4: 06868 03/20/2018 COMPREHEN METABOLIC PANEL CPT-4: 34069 03/20/2018 DEXAMETHASONE SODIUM PHOS CPT-4: J1100 02/11/2018 THER/PROPH/DIAG INJ SC/IM CPT-4: 86670 02/11/2018 TRIAMCINOLONE ACET INJ NOS CPT-4: J3301 02/11/2018 CEFTRIAXONE SODIUM INJECTION CPT-4: J0696 02/01/2018 THER/PROPH/DIAG INJ SC/IM CPT-4: 47095 02/01/2018 CEFTRIAXONE SODIUM INJECTION CPT-4: J0696 01/30/2018 THER/PROPH/DIAG INJ SC/IM CPT-4: 59802 01/30/2018 ROUTINE VENIPUNCTURE CPT-4: 43759 12/10/2017 ASSAY OF FREE THYROXINE CPT-4: 83474 12/10/2017 ASSAY THYROID STIM HORMONE CPT-4: 15343 12/10/2017 COMPREHEN METABOLIC PANEL CPT-4: 57706 12/10/2017 COMPLETE CBC W/AUTO DIFF WBC CPT-4: 69653 12/10/2017 LIPID PANEL CPT-4: 90278 12/10/2017 A1C HPLC CPT-4: 67091 12/10/2017 CEFTRIAXONE SODIUM INJECTION CPT-4: J0696 12/10/2017 THER/PROPH/DIAG INJ SC/IM CPT-4: 28719 12/10/2017 CEFTRIAXONE SODIUM INJECTION CPT-4: J0696 12/07/2017 THER/PROPH/DIAG INJ SC/IM CPT-4: 49191 12/07/2017 DEXAMETHASONE SODIUM PHOS CPT-4: J1100 12/07/2017 THER/PROPH/DIAG INJ SC/IM CPT-4: 34513 12/07/2017 CEFTRIAXONE SODIUM INJECTION CPT-4: J0696 10/08/2017 THER/PROPH/DIAG INJ SC/IM CPT-4: 30013 10/08/2017 CEFTRIAXONE SODIUM INJECTION CPT-4: J0696 09/21/2017 THER/PROPH/DIAG INJ SC/IM CPT-4: 79551 09/21/2017 CEFTRIAXONE SODIUM INJECTION CPT-4: J0696 09/20/2017 THER/PROPH/DIAG INJ SC/IM CPT-4: 47150 09/20/2017 REMOVAL OF NAIL PLATE CPT-4: 49933 08/29/2017 THER/PROPH/DIAG INJ SC/IM CPT-4: 21464 08/29/2017 TRIAMCINOLONE ACET INJ NOS CPT-4: J3301 08/29/2017 CEFTRIAXONE SODIUM INJECTION CPT-4: J0696 08/29/2017 THER/PROPH/DIAG INJ SC/IM CPT-4: 54368 08/29/2017 DESTRUCT PREMALG LESION (Cryosurgery) CPT-4: 45960 ROUTINE VENIPUNCTURE CPT-4: 01656 06/27/2017 ASSAY OF FREE THYROXINE CPT-4: 44018 06/27/2017 ASSAY THYROID STIM HORMONE CPT-4: 20754 06/27/2017 COMPREHEN METABOLIC PANEL CPT-4: 72215 06/27/2017 COMPLETE CBC W/AUTO DIFF WBC CPT-4: 32349 06/27/2017 EXC TR-EXT B9+REECE 0.5 CM< CPT-4: 50333 01/24/2017 THER/PROPH/DIAG INJ SC/IM CPT-4: 77937 08/02/2016 DEXAMETHASONE SODIUM PHOS CPT-4: J1100 08/02/2016 DESTRUCT PREMALG LESION (Cryosurgery) CPT-4: 06376 EXC TR-EXT B9+REECE 0.5 CM< CPT-4: 20942 08/01/2016 AEROBIC WOUND CULTURE & STN CPT-4: 12095 07/06/2016 CEFTRIAXONE SODIUM INJECTION CPT-4: J0696 05/25/2016 THER/PROPH/DIAG INJ SC/IM CPT-4: 57865 05/25/2016 THER/PROPH/DIAG INJ SC/IM CPT-4: 81819 04/26/2016 DEXAMETHASONE SODIUM PHOS CPT-4: J1100 04/26/2016 CEFTRIAXONE SODIUM INJECTION CPT-4: J0696 04/26/2016 THER/PROPH/DIAG INJ SC/IM CPT-4: 32328 04/26/2016 THER/PROPH/DIAG INJ SC/IM CPT-4: 94100 02/09/2016 TRIAMCINOLONE ACET INJ NOS CPT-4: J3301 02/09/2016 URINALYSIS NONAUTO W/O SCOPE CPT-4: 40526 01/24/2016 URINE CULTURE/ COLONY COUNT CPT-4: 34235 01/24/2016 THER/PROPH/DIAG INJ SC/IM CPT-4: 83313 12/08/2015 TRIAMCINOLONE ACET INJ NOS CPT-4: J3301 12/08/2015 THER/PROPH/DIAG INJ SC/IM CPT-4: 95898 10/07/2015 TRIAMCINOLONE ACET INJ NOS CPT-4: J3301 10/07/2015 DESTRUCT PREMALG LESION (Cryosurgery) CPT-4: 90332 THER/PROPH/DIAG INJ SC/IM CPT-4: 28624 03/16/2015 METHYLPREDNISOLONE 40 MG INJ CPT-4: J1030 03/16/2015 DESTRUCT PREMALG LESION (Cryosurgery) CPT-4: 27384 THER/PROPH/DIAG INJ SC/IM CPT-4: 87429 09/11/2014 METHYLPREDNISOLONE 40 MG INJ CPT-4: J1030 09/11/2014 TRIAMCINOLONE ACET INJ NOS CPT-4: J3301 09/11/2014 CEFTRIAXONE SODIUM INJECTION CPT-4: J0696 09/11/2014 THER/PROPH/DIAG INJ SC/IM CPT-4: 65481 09/11/2014 ROUTINE VENIPUNCTURE CPT-4: 57935 08/27/2014 COMPREHEN METABOLIC PANEL CPT-4: 04579 08/27/2014 COMPLETE CBC W/AUTO DIFF WBC CPT-4: 20295 08/27/2014 LIPID PANEL CPT-4: 27874 08/27/2014 ROUTINE VENIPUNCTURE CPT-4: 48259 07/21/2014 ASSAY OF AMYLASE CPT-4: 73961 07/21/2014 ASSAY OF LIPASE CPT-4: 23792 07/21/2014 THER/PROPH/DIAG INJ SC/IM CPT-4: 81631 07/15/2014 TRIAMCINOLONE ACET INJ NOS CPT-4: J3301 07/15/2014 ROUTINE VENIPUNCTURE CPT-4: 21056 05/14/2014 ASSAY OF FREE THYROXINE CPT-4: 37805 05/14/2014 ASSAY THYROID STIM HORMONE CPT-4: 47231 05/14/2014 COMPREHEN METABOLIC PANEL CPT-4: 36015 05/14/2014 COMPLETE CBC W/AUTO DIFF WBC CPT-4: 81912 05/14/2014 LIPID PANEL CPT-4: 46991 05/14/2014 CEFTRIAXONE SODIUM INJECTION CPT-4: J0696 04/21/2014 THER/PROPH/DIAG INJ SC/IM CPT-4: 12152 04/21/2014 THER/PROPH/DIAG INJ SC/IM CPT-4: 60344 04/21/2014 TRIAMCINOLONE ACET INJ NOS CPT-4: J3301 04/21/2014 THER/PROPH/DIAG INJ SC/IM CPT-4: 87787 03/04/2014 METHYLPREDNISOLONE 40 MG INJ CPT-4: J1030 03/04/2014 TRIAMCINOLONE ACET INJ NOS CPT-4: J3301 03/04/2014 CEFTRIAXONE SODIUM INJECTION CPT-4: J0696 03/04/2014 THER/PROPH/DIAG INJ SC/IM CPT-4: 69011 03/04/2014 TDAP VACCINE 7 YRS/> IM CPT-4: 25635 02/27/2014 IMMUNIZATION ADMIN CPT-4: 73965 02/27/2014 DESTRUCT PREMALG LESION (Cryosurgery) CPT-4: 32540 DESTRUCT PREMALG LES 2-14 CPT-4: 82344 01/13/2014 THER/PROPH/DIAG INJ SC/IM CPT-4: 84437 10/21/2013 METHYLPREDNISOLONE 40 MG INJ CPT-4: J1030 10/21/2013 TRIAMCINOLONE ACET INJ NOS CPT-4: J3301 10/21/2013 CEFTRIAXONE SODIUM INJECTION CPT-4: J0696 08/27/2013 THER/PROPH/DIAG INJ SC/IM CPT-4: 83227 08/27/2013 THER/PROPH/DIAG INJ SC/IM CPT-4: 83191 08/27/2013 METHYLPREDNISOLONE 40 MG INJ CPT-4: J1030 08/27/2013 TRIAMCINOLONE ACET INJ NOS CPT-4: J3301 08/27/2013 THER/PROPH/DIAG INJ SC/IM CPT-4: 16787 06/23/2013 METHYLPREDNISOLONE 40 MG INJ CPT-4: J1030 06/23/2013 TRIAMCINOLONE ACET INJ NOS CPT-4: J3301 06/23/2013 THER/PROPH/DIAG INJ SC/IM CPT-4: 94638 05/26/2013 METHYLPREDNISOLONE 40 MG INJ CPT-4: J1030 05/26/2013 TRIAMCINOLONE ACET INJ NOS CPT-4: J3301 05/26/2013 ROUTINE VENIPUNCTURE CPT-4: 18272 03/05/2013 ASSAY OF FREE THYROXINE CPT-4: 29164 03/05/2013 ASSAY THYROID STIM HORMONE CPT-4: 90120 03/05/2013 COMPREHEN METABOLIC PANEL CPT-4: 03674 03/05/2013 COMPLETE CBC W/AUTO DIFF WBC CPT-4: 47963 03/05/2013 A1C GLYCOSYLATED HEMOGLOBIN TEST CPT-4: 82341 013 DRAIN/INJECT JOINT/BURSA CPT-4: 05359 12/04/2012 METHYLPREDNISOLONE 40 MG INJ CPT-4: J1030 12/04/2012 TRIAMCINOLONE ACET INJ NOS CPT-4: J3301 12/04/2012 CEFTRIAXONE SODIUM INJECTION CPT-4: J0696 11/21/2012 THER/PROPH/DIAG INJ SC/IM CPT-4: 04448 11/21/2012 THER/PROPH/DIAG INJ SC/IM CPT-4: 98960 10/14/2012 METHYLPREDNISOLONE 40 MG INJ CPT-4: J1030 10/14/2012 TRIAMCINOLONE ACET INJ NOS CPT-4: J3301 10/14/2012 URINALYSIS NONAUTO W/O SCOPE CPT-4: 57594 09/27/2012 ROUTINE VENIPUNCTURE CPT-4: 58333 09/25/2012 ASSAY OF FREE THYROXINE CPT-4: 71240 09/25/2012 ASSAY THYROID STIM HORMONE CPT-4: 76464 09/25/2012 COMPREHEN METABOLIC PANEL CPT-4: 84244 09/25/2012 COMPLETE CBC W/AUTO DIFF WBC CPT-4: 09804 09/25/2012 C-REACTIVE PROTEIN CPT-4: 70895 09/25/2012 THER/PROPH/DIAG INJ SC/IM CPT-4: 61991 08/29/2012 METHYLPREDNISOLONE 40 MG INJ CPT-4: J1030 08/29/2012 TRIAMCINOLONE ACET INJ NOS CPT-4: J3301 08/29/2012 DESTRUCT PREMALG LESION (Cryosurgery) CPT-4: 26542 THER/PROPH/DIAG INJ SC/IM CPT-4: 89188 05/06/2012 METHYLPREDNISOLONE 40 MG INJ CPT-4: J1030 05/06/2012 TRIAMCINOLONE ACET INJ NOS CPT-4: J3301 05/06/2012 VITAMIN B 12 FOLIC ACID CPT-4: 93020|79446 05/06/2012 RBC SED RATE AUTOMATED CPT-4: 34744 05/06/2012 ROUTINE VENIPUNCTURE CPT-4: 54013 05/06/2012 ASSAY OF FREE THYROXINE CPT-4: 75148 05/06/2012 ASSAY THYROID STIM HORMONE CPT-4: 85164 05/06/2012 COMPREHEN METABOLIC PANEL CPT-4: 72217 05/06/2012 COMPLETE CBC W/AUTO DIFF WBC CPT-4: 11863 05/06/2012 ASSAY OF BLOOD/URIC ACID CPT-4: 78344 05/06/2012 THER/PROPH/DIAG INJ SC/IM CPT-4: 20150 03/19/2012 KETOROLAC TROMETHAMINE INJ CPT-4: J1885 03/19/2012 KETOROLAC TROMETHAMINE INJ CPT-4: J1885 01/30/2012 THER/PROPH/DIAG INJ SC/IM CPT-4: 16860 01/30/2012 PROMETHAZINE HCL INJECTION CPT-4: J2550 01/30/2012 THER/PROPH/DIAG INJ SC/IM CPT-4: 23875 01/24/2012 METHYLPREDNISOLONE 40 MG INJ CPT-4: J1030 01/24/2012 TRIAMCINOLONE ACET INJ NOS CPT-4: J3301 01/24/2012 THER/PROPH/DIAG INJ SC/IM CPT-4: 80119 09/13/2011 KETOROLAC TROMETHAMINE INJ CPT-4: J1885 09/13/2011 THER/PROPH/DIAG INJ SC/IM CPT-4: 36845 09/13/2011 PROMETHAZINE HCL INJECTION CPT-4: J2550 09/13/2011 CEFTRIAXONE SODIUM INJECTION CPT-4: J0696 07/20/2011 THER/PROPH/DIAG INJ SC/IM CPT-4: 37357 07/20/2011 THER/PROPH/DIAG INJ SC/IM CPT-4: 63299 07/20/2011 METHYLPREDNISOLONE INJECTION CPT-4: J2930 07/20/2011 URINALYSIS NONAUTO W/O SCOPE CPT-4: 01404 05/09/2011 CEFTRIAXONE SODIUM INJECTION CPT-4: J0696 05/09/2011 THER/PROPH/DIAG INJ SC/IM CPT-4: 33775 05/09/2011 THER/PROPH/DIAG INJ SC/IM CPT-4: 41633 05/09/2011 PROMETHAZINE HCL INJECTION CPT-4: J2550 05/09/2011 HYDRATION IV INFUSION INIT CPT-4: 32053 05/09/2011 DESTRUCT PREMALG LESION (Cryosurgery) CPT-4: 18742 DESTRUCT PREMALG LES 2-14 CPT-4: 78344 07/19/2010 REMOVAL OF SKIN TAGS <W/15 CPT-4: 50292 05/30/2010 THER/PROPH/DIAG INJ SC/IM CPT-4: 01675 04/05/2010 CEFTRIAXONE SODIUM INJECTION CPT-4: J0696 04/05/2010 TRIAMCINOLONE ACET INJ NOS CPT-4: J3301 04/05/2010 METHYLPREDNISOLONE 40 MG INJ CPT-4: J1030 04/05/2010 THER/PROPH/DIAG INJ SC/IM CPT-4: 80347 04/05/2010 TRIAMCINOLONE ACET INJ NOS CPT-4: J3301 03/09/2010 METHYLPREDNISOLONE 40 MG INJ CPT-4: J1030 03/09/2010 THER/PROPH/DIAG INJ SC/IM CPT-4: 77691 03/09/2010 THER/PROPH/DIAG INJ SC/IM CPT-4: 69708 03/09/2010 CEFTRIAXONE SODIUM INJECTION CPT-4: J0696 03/09/2010 Vital Signs Date Vital 10/07/2019 Blood Pressure 1: 134/82 Code: 8480-6 Heart Rate 1: 105 bpm Respiratory Rate: 17 bpm SpO2: 96% Temperature: 36.8 (C) / 98.2 (F) We ight: 198 lbs 09/30/2019 Blood Pressure 1: 132/80 Code: 8480-6 BMI: 35.8 Code: 99267-0 Heart Rate 1: 88 bpm Height: 5'4" Respiratory Rate: 20 bpm SpO2: 95% Tempera ture: 36.9 (C) / 98.5 (F) Weight: 210 lbs 05/28/2019 Blood Pressure 1: 126/82 Code: 8480-6 BMI: 35.0 Code: 94352-8 Heart Rate 1: 88 bpm Height: 5'4" [...] 1: 128/90 Code: 8480-6 BMI: 37.2 Code: 51334-4 Heart Rate 1: 84 bpm Height: 5'4" Respiratory Rate: 20 bpm SpO2: 95% Tempera ture: 36.6 (C) / 97.8 (F) Weight: 217 lbs 08/27/2018 Blood Pressure 1: 128/88 Code: 8480-6 BMI: 38.3 Code: 65942-6 Heart Rate 1: 84 bpm Height: 5'4" [...] 1: 119/72 Code: 8480-6 BMI: 37.4 Code: 97988-2 Heart Rate 1: 82 bpm Height: 5'4" Respiratory Rate: 12 bpm SpO2: 94% Tempera ture: 35.2 (C) / 95.4 (F) Weight: 218 lbs 12/18/2017 Blood Pressure 1: 128/86 Code: 8480-6 BMI: 37.8 Code: 73090-6 Heart Rate 1: 84 bpm Height: 5'4" [...] 1: 128/82 Code: 8480-6 BMI: 35.5 Code: 70216-2 Heart Rate 1: 84 bpm Height: 5'4" [...] 1: 128/82 Code: 8480-6 BMI: 30.2 Code: 83039-7 Heart Rate 1: 80 bpm Height: 5'4" [...] 1: 128/86 Code: 8480-6 BMI: 32.8 Code: 95352-8 Heart Rate 1: 66 bpm Height: 5'4" Respiratory Rate: 18 bpm Temperature: 36 .3 (C) / 97.3 (F) Weight: 191 lbs 06/23/2013 Blood Pressure 1: 132/94 Code: 8480-6 BMI: 34.0 Code: 69240-0 Heart Rate 1: 84 bpm Height: 5'4" Respiratory Rate: 20 bpm Temperature: 36 .8 (C) / 98.2 (F) Weight: 198 lbs 05/26/2013 Blood Pressure 1: 114/80 Code: 8480-6 BMI: 35.0 Code: 56097-2 Heart Rate 1: 80 bpm Height: 5'4" Respiratory Rate: 20 bpm Temperature: 36 .4 (C) / 97.6 (F) Weight: 204 lbs 04/16/2013 Blood Pressure 1: 114/82 Code: 8480-6 BMI: 36.7 Code: 71228-4 Heart Rate 1: 84 bpm Height: 5'4" Respiratory Rate: 20 bpm Temperature: 36 .7 (C) / 98.0 (F) Weight: 214 lbs 03/05/2013 Blood Pressure 1: 136/90 Code: 8480-6 BMI: 37.1 Code: 08538-0 Heart Rate 1: 84 bpm Height: 5'4" [...] 1: 168/114 Code: 8480-6 BMI: 36.2 Code: 83022-5 Heart Rate 1: 104 bpm Height: 5'4" Respiratory Rate: 20 bpm Temperature: 36 .8 (C) / 98.2 (F) Weight: 211 lbs 11/22/2012 Blood Pressure 1: 128/90 Code: 8480-6 Heart Rate 1: 88 bpm Respiratory Rate: 20 bpm SpO2: 96% Temperature: 36.8 (C) / 98.2 (F) 11/21/2012 Blood Pressure 1: 146/100 Code: 8480-6 BMI: 35.7 Code: 71822-0 Heart Rate 1: 96 bpm Height: 5'4" [...] 1: 138/100 Code: 8480-6 BMI: 35.7 Code: 95553-6 Heart Rate 1: 96 bpm Height: 5'4" Respiratory Rate: 20 bpm Temperature: 36 .8 (C) / 98.2 (F) Weight: 208 lbs 05/06/2012 Blood Pressure 1: 154/102 Code: 8480-6 BMI: 34.7 Code: 45873-8 Heart Rate 1: 116 bpm Height: 5'4" Respiratory Rate: 20 bpm Temperature: 36 .8 (C) / 98.2 (F) Weight: 202 lbs 04/03/2012 Blood Pressure 1: 134/94 Code: 8480-6 BMI: 34.8 Code: 88300-4 Heart Rate 1: 108 bpm Height: 5'4" Respiratory Rate: 20 bpm Temperature: 36 .8 (C) / 98.2 (F) Weight: 203 lbs 03/19/2012 Blood Pressure 1: 148/106 Code: 8480-6 BMI: 35.0 Code: 00307-8 Heart Rate 1: 100 bpm Height: 5'4" Respiratory Rate: 20 bpm Temperature: 36 .6 (C) / 97.9 (F) Weight: 204 lbs 02/22/2012 Blood Pressure 1: 146/94 Code: 8480-6 He art Rate 1: 88 bpm 02/21/2012 Blood Pressure 1: 172/120 Code: 8480-6 B lood Pressure 2: 152/106 Code: 8480-6 Heart Rate 1: 116 bpm 02/20/2012 Blood Pressure 1: 160/100 Code: 8480-6 BMI: 32.0 Code: 70065-8 Heart Rate 1: 84 bpm Height: 5'7" Temperature: 36.5 (C) / 97.7 (F) Weight: 204 lbs 01/30/2012 Blood Pressure 1: 152/110 Code: 8480-6 BMI: 32.0 Code: 91696-1 Heart Rate 1: 116 bpm Height: 5'7" Respiratory Rate: 20 bpm Temperature: 37 .0 (C) / 98.6 (F) Weight: 204 lbs 01/24/2012 Blood Pressure 1: 146/100 Code: 8480-6 BMI: 32.0 Code: 71071-5 Heart Rate 1: 100 bpm Height: 5'7" Respiratory Rate: 20 bpm Temperature: 36 .7 (C) / 98.0 (F) Weight: 204 lbs 01/10/2012 Blood Pressure 1: 156/94 Code: 8480-6 BMI: 32.6 Code: 36778-1 Heart Rate 1: 72 bpm Height: 5'7" Respiratory Rate: 20 bpm Temperature: 36 .8 (C) / 98.2 (F) Weight: 208 lbs 12/11/2011 Blood Pressure 1: 146/100 Code: 8480-6 Heart Rat e 1: 116 bpm Height: 5'7" Respiratory Rate: 20 bpm Temperature: 36.9 (C) / 98.4 (F) We ight: 11/09/2011 Blood Pressure 1: 148/96 Code: 8480-6 BMI: 32.1 Code: 77875-2 Heart Rate 1: 116 bpm Height: 5'7" Respiratory Rate: 20 bpm Temperature: 36 .7 (C) / 98.0 (F) Weight: 205 lbs 09/13/2011 Blood Pressure 1: 126/88 Code: 8480-6 Heart Rate 1: 88 bpm Height: 5'7" Respiratory Rate: 20 bpm Temperature: 36.9 (C) / 98.4 (F) We ight: 08/31/2011 Blood Pressure 1: 118/82 Code: 8480-6 BMI: 32.0 Code: 43717-0 Heart Rate 1: 80 bpm Height: 5'7" Temperature: 36.4 (C) / 97.6 (F) Weight: 204 lbs 07/06/2011 Blood Pressure 1: 128/86 Code: 8480-6 BMI: 30.9 Code: 45284-3 Heart Rate 1: 92 bpm Height: 5'7" Respiratory Rate: 20 bpm Temperature: 36 .9 (C) / 98.4 (F) Weight: 197 lbs 06/06/2011 Blood Pressure 1: 112/74 Code: 8480-6 BMI: 31.0 Code: 93725-0 Heart Rate 1: 72 bpm Height: 5'7" [...] 1: 128/92 Code: 8480-6 BMI: 33.6 Code: 46663-6 Heart Rate 1: 104 bpm Height: 5'4" [...] Check-up Encounters Encounter Performer Location Codes Date ([id number]) OFFICE/OUTPATIENT VISIT EST Diagnosis: Ingrowing nail[ICD10: L60.0] Diagnosis: Type 2 diabetes mellitus with hyperglycemia[ICD10: E11.65] Kathleen ELLISLINE Fabiola APPIAH [employer] CPT-4: 34116 10/07/2019 ([id number]) OFFICE/OUTPATIENT VISIT EST Diagnosis: DM w/o complication type II, uncontrolled[ICD10: E11.65] Diagnosis: Hypertriglyceridemia[ICD10: E78.1] Diagnosis: Essential hypertension[ICD10: I10] María Elena BASURTO TED APPIAH [employer] CPT-4: 48712 09/30/2019 ([id number]) NURSE/OUTPATIENT VISIT EST Diagnosis: Essential (primary) hypertension[ICD10: I10] Diagnosis: Cervicalgia[ICD10: M54.2] Diagnosis: Hyperglycemia, unspecified[ICD10: R73.9] Diagnosis: Mixed hyperlipidemia[ICD10: E78.2] María Elena BASURTO TED [employer] APPIAH [employer] CPT-4: 91148 09/29/2019 ([id number]) OFFICE/OUTPATIENT VISIT EST Diagnosis: Essential (primary) hypertension[ICD10: I10] Diagnosis: Fall from bed, sequela[ICD10: W06.XXXS] María Elena REED LucioJj TD [employer] CPT-4: 72218 05/28/2019 ([id number]) NURSE/OUTPATIENT VISIT EST Diagnosis: Essential (primary) hypertension[ICD10: I10] María Elena JUARES LucioJj TD [employer] CPT-4: 63827 05/19/2019 ([id number]) OFFICE/OUTPATIENT VISIT EST Diagnosis: Essential (primary) hypertension[ICD10: I10] Diagnosis: Type 2 diabetes mellitus with hyperglycemia[ICD10: E11.65] Diagnosis: Intervertebral disc disorders with radiculopathy, 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] Diagnosis: Hormone replacement therapy[ICD10: Z79.890] María Elena JUARES LucioJj TD [employer] CPT-4: 41635 01/22/2019 ([id number]) OFFICE/OUTPATIENT VISIT EST Diagnosis: Essential (primary) hypertension[ICD10: I10] Diagnosis: Type 2 diabetes mellitus with hyperglycemia[ICD10: E11.65] María Elena APPIAH [facility] CPT-4: 07615 09/30/2018 ([id number]) OFFICE/OUTPATIENT VISIT EST Diagnosis: Pain in left elbow[ICD10: M25.522] Diagnosis: Acute stress reaction[ICD10: F43.0] Diagnosis: Primary insomnia[ICD10: F51.01] Diagnosis: Abnormal weight gain[ICD10: R63.5] María Elena APPIAH [facility] CPT-4: 48880 08/27/2018 ([id number]) OFFICE/OUTPATIENT VISIT EST Diagnosis: Acute recurrent sinusitis, unspecified[ICD10: J01.91] Diagnosis: Follicular disorder, unspecified[ICD10: L73.9] Diagnosis: Tinea corporis[ICD10: B35.4] María Elena APPIAH [facility] CPT-4: 05900 08/09/2018 ([id number]) OFFICE/OUTPATIENT VISIT EST Diagnosis: Tinea corporis[ICD10: B35.4] Diagnosis: Anxiety disorder, unspecified[ICD10: F41.9] Diagnosis: Menopausal and female climacteric states[ICD10: N95.1] María Elena APPIAH [facility] CPT-4: 00967 07/22/2018 ([id number]) NURSE/OUTPATIENT VISIT EST Diagnosis: Cellulitis of right toe[ICD10: L03.031] María Elena APPIAH [facility] CPT-4: 96871 06/19/2018 ([id number]) OFFICE/OUTPATIENT VISIT EST Diagnosis: Cellulitis of right toe[ICD10: L03.031] Kathleen Leijaimaldi KYLAH APPIAH [facility] CPT-4: 25748 06/17/2018 ([id number]) OFFICE/OUTPATIENT VISIT EST Diagnosis: Migraine without aura, intractable, without status migrainosus[ICD10: G43.019] Diagnosis: Zoster without complications[ICD10: B02.9] Kathleen Leijaimaldi MARÍA ELENA APPIAH [facility] CPT-4: 34311 05/16/2018 ([id number]) OFFICE/OUTPATIENT VISIT EST Diagnosis: Cellulitis of right lower limb[ICD10: L03.115] Kathleen APPIAH DO [facility] CPT-4: 93216 03/20/2018 ([id number]) OFFICE/OUTPATIENT VISIT EST Diagnosis: Cellulitis of right lower limb[ICD10: L03.115] Kathleen APPIAH DO [facility] CPT-4: 65236 03/18/2018 ([id number]) OFFICE/OUTPATIENT VISIT EST Diagnosis: Cellulitis of right lower limb[ICD10: L03.115] Kathleen APPIAH DO [facility] CPT-4: 71692 03/15/2018 ([id number]) OFFICE/OUTPATIENT VISIT EST Diagnosis: Acute sinusitis, unspecified[ICD10: J01.90] Kathleen APPIAH DO [facility] CPT-4: 65976 02/11/2018 ([id number]) NURSE/OUTPATIENT VISIT EST Diagnosis: Otitis media, unspecified, right ear[ICD10: H66.91] María Elena APPIAH [employer] [facility] CPT-4: 01554 02/01/2018 ([id number]) OFFICE/OUTPATIENT VISIT EST Diagnosis: Acute suppurative otitis media without spontaneous rupture of ear drum, left ear[ICD10: H66.002] Diagnosis: Abnormal weight gain[ICD10: R63.5] Diagnosis: Intervertebral disc disorders with radiculopathy, 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] Kathleen APPIAH DO [facility] CPT-4: 99 214 01/30/2018 ([id number]) PREV VISIT EST AGE 40-64 Diagnosis: Encounter for general adult medical examination without abnormal findings[ICD10: Z00.00] Diagnosis: Essential (primary) hypertension[ICD10: I10] Diagnosis: Mixed hyperlipidemia[ICD10: E78.2] Diagnosis: Type 2 diabetes mellitus with hyperglycemia[ICD10: E11.65] Diagnosis: 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] María Elena APPIAH [employer] [facility] CPT-4: 22863 12/18/2017 ([id number]) OFFICE/OUTPATIENT VISIT EST Diagnosis: Cellulitis of right toe[ICD10: L03.031] Diagnosis: Mixed hyperlipidemia[ICD10: E78.2] Diagnosis: Essential (primary) hypertension[ICD10: I10] Diagnosis: Hyperglycemia, unspecified[ICD10: R73.9] Diagnosis: Nontoxic goiter, 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] María Elena APPIAH DO [facility] CPT-4: 09917 12/10/2017 ([id number]) OFFICE/OUTPATIENT VISIT EST Diagnosis: Cellulitis of right toe[ICD10: L03.031] Diagnosis: Acute sinusitis, unspecified[ICD10: J01.90] Kathleen APPIAH DO [facility] CPT-4: 80231 12/07/2017 OFFICE/OUTPATIENT VISIT EST Diagnosis: Acute maxillary sinusitis, unspecified[ICD10: J01.00] Kathleen APPIAH DO [facility] CPT-4: 04228 10/08/2017 ([id number]) OFFICE/OUTPATIENT VISIT EST Diagnosis: Cellulitis of left toe[ICD10: L03.032] María Elena ISAAC [employer] APPIAH [facility] CPT-4: 56164 09/21/2017 ([id number]) OFFICE/OUTPATIENT VISIT EST Diagnosis: Insomnia, unspecified[ICD10: G47.00] Diagnosis: Major depressive disorder, single episode, unspecified[ICD10: F32.9] Diagnosis: Anxiety disorder, unspecified[ICD10: F41.9] Diagnosis: Cellulitis of left toe[ICD10: L03.032] Diagnosis: Snoring[ICD10: R06.83] Kathleen APPIAH DO [facility] CPT-4: 78526 09/20/2017 ([id number]) OFFICE/OUTPATIENT VISIT EST Diagnosis: Cellulitis of left toe[ICD10: L03.032] María Elena APPIAH DO [facility] CPT-4: 91317 07/19/2017 OFFICE/OUTPATIENT VISIT EST Diagnosis: Chronic sinusitis, unspecified[ICD10: J32.9] Diagnosis: Generalized hyperhidrosis[ICD10: R61] Kathleen APPIAH DO [facility] CPT-4: 15261 06/27/2017 ([id number]) OFFICE/OUTPATIENT VISIT EST Diagnosis: Intervertebral disc disorders with radiculopathy, 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] Diagnosis: Primary insomnia[ICD10: F51.01] Diagnosis: Other fatigue[ICD10: R53.83] María Elena APPIAH DO [facility] CPT-4: 21835 04/10/2017 ([id number]) OFFICE/OUTPATIENT VISIT EST Diagnosis: Primary insomnia[ICD10: F51.01] Diagnosis: Localized edema[ICD10: R60.0] Diagnosis: 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] María Elena APPIAH DO [facility] CPT-4: 51342 12/13/2016 ([id number]) OFFICE/OUTPATIENT VISIT EST Diagnosis: Primary insomnia[ICD10: F51.01] Diagnosis: Cyanosis[ICD10: R23.0] María Elena Bazzi [employer] CPT-4: 68348 11/01/2016 ([id number]) PREV VISIT EST AGE 40-64 Diagnosis: Encounter for gynecological examination (general) (routine) without abnormal findings[ICD10: Z01.419] Diagnosis: Encounter for routine child health examination without abnormal findings[ICD10: Z00.129] María Elena APPIAH Schoo [facility] CPT-4: 85328 10/17/2016 ([id number]) OFFICE/OUTPATIENT VISIT EST Diagnosis: Other seasonal allergic rhinitis[ICD10: J30.2] María Elena APPIAH DO [facility] CPT-4: 30955 10/10/2016 ([id number]) OFFICE/OUTPATIENT VISIT EST Diagnosis: Pain in left arm[ICD10: M79.602] Diagnosis: Contact with and (suspected) exposure to potentially hazardous body fluids[ICD10: Z77.21] Diagnosis: 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, 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] Diagnosis: Unspecified open wound, right foot, sequela[ICD10: S91.301S] María Elena APPIAH Schoo [facility] CPT-4: 00984 09/19/2016 ([id number]) OFFICE/OUTPATIENT VISIT EST Diagnosis: Chronic sinusitis, unspecified[ICD10: J32.9] Diagnosis: Allergic rhinitis due to pollen[ICD10: J30.1] María Elena APPIAH DO [facility] CPT-4: 39635 08/24/2016 ([id number]) OFFICE/OUTPATIENT VISIT EST Diagnosis: Acute bronchitis, unspecified[ICD10: J20.9] María Elena APPIAH DO [facility] CPT-4: 95593 08/16/2016 ([id number]) OFFICE/OUTPATIENT VISIT EST Diagnosis: Otitis media, unspecified, right ear[ICD10: H66.91] Diagnosis: Acute bronchitis, unspecified[ICD10: J20.9] María Elena APPIAH DO [facility] CPT-4: 80132 08/10/2016 ([id number]) OFFICE/OUTPATIENT VISIT EST Diagnosis: Acute recurrent sinusitis, unspecified[ICD10: J01.91] Diagnosis: Allergic rhinitis due to pollen[ICD10: J30.1] María Elena APPIAH Schoo [facility] CPT-4: 74905 08/02/2016 ([id number]) OFFICE/OUTPATIENT VISIT EST Diagnosis: Pain in unspecified joint[ICD10: M25.50] María Elena APPIAH DO [facility] CPT-4: 83214 07/27/2016 OFFICE/OUTPATIENT VISIT EST Diagnosis: 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] Diagnosis: Acute recurrent sinusitis, unspecified[ICD10: J01.91] Diagnosis: Other fatigue[ICD10: R53.83] Diagnosis: Primary insomnia[ICD10: F51.01] Diagnosis: Pain in unspecified joint[ICD10: M25.50] María Elena APPIAH Schoo [facility] CPT-4: 93955 07/20/2016 ([id number]) OFFICE/OUTPATIENT VISIT EST Diagnosis: Blister (nonthermal), left great toe, initial encounter[ICD10: S90.422A] Loan APPIAH DO [facility] CPT-4: 19815 ([id number]) OFFICE/OUTPATIENT VISIT EST Diagnosis: Acute recurrent sinusitis, unspecified[ICD10: J01.91] María Elena APPIAH DO [facility] CPT-4: 08640 05/25/2016 ([id number]) OFFICE/OUTPATIENT VISIT EST Diagnosis: Acute sinusitis, unspecified[ICD10: J01.90] María Elena APPIAH DO [facility] CPT-4: 32104 04/26/2016 ([id number]) OFFICE/OUTPATIENT VISIT EST Diagnosis: Flushing[ICD10: R23.2] Diagnosis: Primary insomnia[ICD10: F51.01] María Elena APPIAH DO [facility] CPT-4: 66642 03/02/2016 ([id number]) OFFICE/OUTPATIENT VISIT EST Diagnosis: Other seasonal allergic rhinitis[ICD10: J30.2] Loan APPIAH DO [facility] CPT-4: 31892 02/09/2016 ([id number]) OFFICE/OUTPATIENT VISIT EST Diagnosis: Primary insomnia[ICD10: F51.01] Diagnosis: Urinary tract infection, site not specified[ICD10: N39.0] María Elena APPIAH DO [facility] CPT-4: 27947 01/24/2016 ([id number]) OFFICE/OUTPATIENT VISIT EST Diagnosis: Other specified disorders of Eustachian tube, bilateral[ICD10: H69.83] Diagnosis: Allergic rhinitis, unspecified[ICD10: J30.9] Loan APPIAH DO [facility] CPT-4: 40788 12/23/2015 ([id number]) OFFICE/OUTPATIENT VISIT EST Diagnosis: Acute recurrent sinusitis, unspecified[ICD10: J01.91] Diagnosis: 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] Diagnosis: Allergic rhinitis, unspecified[ICD10: J30.9] María Elena APPIAH DO [facility] CPT-4: 51701 12/08/2015 ([id number]) OFFICE/OUTPATIENT VISIT EST Diagnosis: Allergic rhinitis, unspecified[ICD10: J30.9] Diagnosis: Pain in unspecified joint[ICD10: M25.50] María Elena APPIAH DO [facility] CPT-4: 05780 10/07/2015 ([id number]) OFFICE/OUTPATIENT VISIT EST Diagnosis: Essential (primary) hypertension[ICD10: I10] María Elena [facility] [facility] CPT-4: 55021 10/06/2015 OFFICE/OUTPATIENT VISIT EST Diagnosis: Localized enlarged lymph nodes[ICD10: R59.0] Diagnosis: Local infection of the skin and subcutaneous tissue, unspecified[ICD10: L08.9] June VelozAlbertadaniella APPIAH DO [facility] CPT- 4: 04707 09/14/2015 ([id number]) OFFICE/OUTPATIENT VISIT EST Diagnosis: Essential (primary) hypertension[ICD10: I10] Diagnosis: Actinic keratosis[ICD10: L57.0] María Elena APPIAH DO [facility] CPT-4: 25662 09/07/2015 ([id number]) OFFICE/OUTPATIENT VISIT EST Diagnosis: Essential (primary) hypertension[ICD10: I10] Diagnosis: Acute stress reaction[ICD10: F43.0] María Elena APPIAH DO [facility] CPT-4: 63960 08/18/2015 ([id number]) OFFICE/OUTPATIENT VISIT EST Diagnosis: Essential (primary) hypertension[ICD10: I10] María Elena APPIAH DO [facility] CPT-4: 59551 07/07/2015 ([id number]) OFFICE/OUTPATIENT VISIT EST Diagnosis: Essential (primary) hypertension[ICD10: I10] María Elena APPIAH DO [facility] CPT-4: 43211 06/24/2015 ([id number]) OFFICE/OUTPATIENT VISIT EST Diagnosis: Essential (primary) hypertension[ICD10: I10] María Elena APPIAH DO [facility] CPT-4: 84224 06/21/2015 ([id number]) OFFICE/OUTPATIENT VISIT EST Diagnosis: Essential (primary) hypertension[ICD10: I10] Diagnosis: Mixed hyperlipidemia[ICD10: E78.2] Diagnosis: Acute stress reaction[ICD10: F43.0] Diagnosis: Primary insomnia[ICD10: F51.01] María Elena APPIAH [facility] CPT-4: 02173 06/16/2015 ([id number]) OFFICE/OUTPATIENT VISIT EST Diagnosis: INSOMNIA NOS[ICD9: 780.52] Diagnosis: HYPERTENSION[ICD9: 401.9] Diagnosis: Stress reaction[ICD9: 308.9] María Elena APPIAH [facility] CPT-4: 69442 06/02/2015 ([id number]) OFFICE/OUTPATIENT VISIT EST Diagnosis: HYPERTENSION[ICD9: 401.9] Diagnosis: Stress reaction[ICD9: 308.9] María Elena APPIAH [facility] CPT-4: 87164 05/20/2015 ([id number]) OFFICE/OUTPATIENT VISIT EST Diagnosis: Skin lesion[ICD9: 709.9] 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] María Elena APPIAH [facility] CPT-4: 43744 05/10/2015 ([id number]) OFFICE/OUTPATIENT VISIT EST Diagnosis: SINUSITIS, ACUTE[ICD9: 461.9] Diagnosis: ALLERGIC RHINITIS[ICD9: 477.9] Diagnosis: DERMATITIS NOS[ICD9: 692.9] María Elena REHMAN [facility] CPT-4: 73677 03/16/2015 OFFICE/OUTPATIENT VISIT EST Diagnosis: Otitis media[ICD9: 382.9] Diagnosis: SINUSITIS, ACUTE[ICD9: 461.9] June VanSpencer MARÍA ELENA APPIAH [facility] CPT-4: 07138 09/11/2014 ([id number]) OFFICE/OUTPATIENT VISIT EST Diagnosis: HYPERLIPIDEMIA NEC/NOS[ICD9: 272.4] María Elena APPIAH [facility] CPT-4: 66766 08/31/2014 ([id number]) OFFICE/OUTPATIENT VISIT EST Diagnosis: - I - HYPERTENSION[ICD9: 401.9] Diagnosis: HYPERLIPIDEMIA NEC/NOS[ICD9: 272.4] María Elena APPIAH DO [facility] CPT-4: 25133 08/27/2014 ([id number]) OFFICE/OUTPATIENT VISIT EST Diagnosis: ABDOMINAL PAIN[ICD9: 789.00] Diagnosis: DYSPEPSIA[ICD9: 536.8] Diagnosis: Thoracic back pain[ICD9: 724.1] María Elena APPIAH DO [facility] CPT-4: 04211 07/21/2014 ([id number]) OFFICE/OUTPATIENT VISIT EST Diagnosis: ALLERGIC RHINITIS[ICD9: 477.9] María Elena APPIAH DO [facility] CPT-4: 40749 07/15/2014 ([id number]) OFFICE/OUTPATIENT VISIT EST Diagnosis: EDEMA[ICD9: 782.3] Diagnosis: Chronic insomnia[ICD9: 780.52] María Elena APPIAH DO [facility] CPT-4: 47898 05/18/2014 ([id number]) OFFICE/OUTPATIENT VISIT EST Diagnosis: Thyromegaly[ICD9: 240.9] Diagnosis: - I - HYPERTENSION[ICD9: 401.9] Diagnosis: ROUTINE MEDICAL EXAM[ICD9: V70.0] Diagnosis: EDEMA[ICD9: 782.3] María Elena APPIAH DO [facility] CPT-4: 01684 05/14/2014 OFFICE/OUTPATIENT VISIT EST Diagnosis: BRONCHITIS, ACUTE[ICD9: 466.0] Diagnosis: SINUSITIS, ACUTE[ICD9: 461.9] María Elena APPIAH [facility] CPT-4: 97519 04/21/2014 OFFICE/OUTPATIENT VISIT EST Diagnosis: SINUSITIS, ACUTE[ICD9: 461.9] June Flores MARÍA ELENA APPIAH [facility] CPT-4: 55179 03/04/2014 ([id number]) OFFICE/OUTPATIENT VISIT EST Diagnosis: VACCINE FOR TDAP[ICD10: Z23] María Elena APPIAH DO [facility] CPT-4: 42875 02/27/2014 ([id number]) OFFICE/OUTPATIENT VISIT EST Diagnosis: Seborrheic keratoses, inflamed[ICD9: 702.11] Diagnosis: ACTINIC KERATOSIS[ICD9: 702.0] Diagnosis: INSOMNIA NOS[ICD9: 780.52] [facility]: 19303 01/13/2014 OFFICE/OUTPATIENT VISIT EST Diagnosis: EUSTACHIAN TUBE DYSFUNCTION[ICD9: 381.81] Diagnosis: ALLERGIC RHINITIS[ICD9: 477.9] Diagnosis: Serous otitis media[ICD9: 381.4] Mar[facility] CPT-[facility]: 41461 12/24/2013 ([id number]) OFFICE/OUTPATIENT VISIT EST Diagnosis: SINUSITIS, ACUTE[ICD9: 461.9] Diagnosis: ALLERGIC RHINITIS[ICD9: 477.9] Diagnosis: EUSTACHIAN TUBE DYSFUNCTION[ICD9: 381.81] [facility] CPT-4: 08927 11/12/2013 ([id number]) OFFICE/OUTPATIENT VISIT EST Diagnosis: ALLERGIC RHINITIS[ICD9: 477.9] Diagnosis: SINUSITIS, ACUTE[ICD9: 461.9] María [facility] CPT-4: 71733 10/21/2013 ([id number]) OFFICE/OUTPATIENT VISIT EST Diagnosis: ASYMPTOMATIC VARICOSE VEINS[ICD9: 454.9] Diagnosis: INSOMNIA NOS[ICD9: 780.52] María Elena Valdes KRISTYN [facility] CPT-4: 60678 09/22/2013 OFFICE/OUTPATIENT VISIT EST Diagnosis: SINUSITIS, ACUTE[ICD9: 461.9] June Sandra [facility]A ELENA [facility] CPT-4: 10019 08/27/2013 ([id number]) OFFICE/OUTPATIENT VISIT EST Diagnosis: CEPHALGIA[ICD9: 784.0] Diagnosis: CEPHALGIA, TENSION[ICD9: 307.81] 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] María [facility] CPT-4: 98219 08/04/2013 ([id number]) OFFICE/OUTPATIENT VISIT EST Diagnosis: Cervicalgia[ICD9: 723.1] Diagnosis: SPASM OF MUSCLE[ICD9: 728.85] Diagnosis: CEPHALGIA, TENSION[ICD9: 307.81] María Elena Td ELLISLINE Fabiola APPIAH DO [facility] CPT-4: 44594 07/23/2013 ([id number]) OFFICE/OUTPATIENT VISIT EST Diagnosis: EUSTACHIAN TUBE DYSFUNCTION[ICD9: 381.81] Diagnosis: ALLERGIC RHINITIS[ICD9: 477.9] María Elena ELLISLINE Lucio APPIAH DO [facility] CPT-4: 87748 06/23/2013 ([id number]) OFFICE/OUTPATIENT VISIT EST Diagnosis: ALLERGIC RHINITIS[ICD9: 477.9] Diagnosis: ACUTE SEROUS OTITIS MEDIA[ICD9: 381.01] Diagnosis: EUSTACHIAN TUBE DYSFUNCTION[ICD9: 381.81] María Elena Td ELLISLINE LucioJj TD [facility] CPT-4: 02975 05/26/2013 ([id number]) OFFICE/OUTPATIENT VISIT EST Diagnosis: HYPERTENSION[ICD9: 401.9] Diagnosis: EDEMA[ICD9: 782.3] Diagnosis: Serous otitis media[ICD9: 381.4] María Elena ELLISLINE Fabiola APPIAH [facility] CPT-4: 12850 04/16/2013 ([id number]) OFFICE/OUTPATIENT VISIT EST Diagnosis: SINUSITIS, ACUTE[ICD9: 461.9] Diagnosis: ALLERGIC RHINITIS[ICD9: 477.9] Diagnosis: EDEMA[ICD9: 782.3] Diagnosis: Thyromegaly[ICD9: 240.9] Diagnosis: MALAISE AND FATIGUE[ICD9: 780.79] María Elena Seamusabbey Lopez LucioJj TD [facility] CPT-4: 80604 03/05/2013 ([id number]) OFFICE/OUTPATIENT VISIT EST Diagnosis: PAIN, LOWER BACK[ICD9: 724.2] Diagnosis: SPASM OF MUSCLE[ICD9: 728.85] María Elena JUARES LucioJj TD [facility] CPT-4: 75832 12/23/2012 OFFICE/OUTPATIENT VISIT EST Diagnosis: Low back pain[ICD9: 724.2] Lashawn Hicks KRISTYN MUMTAZ [facility] CPT-4: 61063 12/16/2012 ([id number]) OFFICE/OUTPATIENT VISIT EST Diagnosis: PAIN, LOWER BACK[ICD9: 724.2] Diagnosis: SCIATICA[ICD9: 724.3] Diagnosis: Lumbar herniated disc[ICD9: 722.10] María Elena ELLISJaylin APPIAH DO [facility] CPT-4: 93111 12/09/2012 ([id number]) OFFICE/OUTPATIENT VISIT EST Diagnosis: PAIN, LOWER BACK[ICD9: 724.2] Diagnosis: SCIATICA[ICD9: 724.3] Diagnosis: LUMBAR DISC DISPLACEMENT[ICD9: 722.10] María Elena MARIN Fabiola APPIAH DO [facility] CPT-4: 48868 12/04/2012 OFFICE/OUTPATIENT VISIT EST Diagnosis: Pneumonia[ICD9: 486] Mary Tillman MARÍA ELENA APPIAH DO [facility] CPT-4: 63553 11/22/2012 ([id number]) OFFICE/OUTPATIENT VISIT EST Diagnosis: PNEUMONIA, ORGANISM[ICD9: 486] Diagnosis: Exacerbation of RAD (reactive airway disease)[ICD9: 493.92] María Elena Td APPIAH DO [facility] CPT-4: 61226 11/21/2012 OFFICE/OUTPATIENT VISIT EST Diagnosis: HYPERTENSION[ICD9: 401.9] Diagnosis: Cephalgia[ICD9: 784.0] Lashawn MONTEROQUELINE Fabiola APPIAH DO L CPT-4: 97794 10/29/2012 ([id number]) OFFICE/OUTPATIENT VISIT EST Diagnosis: MALAISE AND FATIGUE[ICD9: 780.79] Diagnosis: ARTHRALGIA-MULTIPLE SITES[ICD9: 719.49] María Elena REED Fabiola APPIAH DO [facility] CPT-4: 24491 10/14/2012 ([id number]) OFFICE/OUTPATIENT VISIT EST Diagnosis: URINARY FREQUENCY[ICD9: 788.41] María Elena MONTEROQUELINE aFbiola APPIAH DO [facility] CPT-4: 93447 09/27/2012 ([id number]) OFFICE/OUTPATIENT VISIT EST Diagnosis: MALAISE AND FATIGUE[ICD9: 780.79] Diagnosis: ARTHRALGIA-MULTIPLE SITES[ICD9: 719.49] María Elena APPIAH [facility] CPT-4: 51581 09/25/2012 ([id number]) OFFICE/OUTPATIENT VISIT EST Diagnosis: SINUSITIS, ACUTE[ICD9: 461.9] Diagnosis: EUSTACHIAN TUBE DYSFUNCTION[ICD9: 381.81] María Elena APPIAH [facility] CPT-4: 48207 08/29/2012 OFFICE/OUTPATIENT VISIT EST Diagnosis: ACTINIC KERATOSIS[ICD9: 702.0] Diagnosis: Inflamed seborrheic keratosis[ICD9: 702.11] Diagnosis: Skin cancer of face[ICD9: 173.31] Diagnosis: HYPERTENSION[ICD9: 401.9] María Elena GODOY BANNERRose Mary [facility] CPT-4: 58466 08/12/2012 ([id number]) OFFICE/OUTPATIENT VISIT EST Diagnosis: ARTHRALGIA-MULTIPLE SITES[ICD9: 719.49] Diagnosis: GOUT[ICD9: 274.9] Diagnosis: HYPERTENSION[ICD9: 401.9] Diagnosis: Tachycardia[ICD9: 785.0] María Elena BRADFORD [facility] CPT-4: 53134 05/06/2012 ([id number]) OFFICE/OUTPATIENT VISIT EST Diagnosis: INSOMNIA NOS[ICD9: 780.52] María Elena [facility] CPT-4: 45319 04/03/2012 ([id number]) OFFICE/OUTPATIENT VISIT EST Diagnosis: INSOMNIA NOS[ICD9: 780.52] Diagnosis: HYPERTENSION[ICD9: 401.9] Diagnosis: MIGRAINE NOS/NOT INTRCBL[ICD9: 346.90] María [facility] CPT-4: 08041 03/19/2012 ([id number]) OFFICE/OUTPATIENT VISIT EST Diagnosis: CELLULITIS[ICD9: 682.9] Diagnosis: Ankle pain[ICD9: 719.47] Diagnosis: HYPERTENSION[ICD9: 401.9] María Elena SEYMOUR [facility] CPT-4: 90665 02/20/2012 ([id number]) OFFICE/OUTPATIENT VISIT EST Diagnosis: MIGRAINE NOS/NOT INTRCBL[ICD9: 346.90] Diagnosis: Vomiting[ICD9: 787.03] María Elena Seamusabbey JUARES LucioJj CIRO Bazzi [facility] CPT-4: 81894 01/30/2012 ([id number]) OFFICE/OUTPATIENT VISIT EST Diagnosis: EDEMA[ICD9: 782.3] Diagnosis: HYPERTENSION[ICD9: 401.9] Diagnosis: ALLERGIC RHINITIS[ICD9: 477.9] Diagnosis: ARTHRALGIA-MULTIPLE SITES[ICD9: 719.49] María Elena MONTERO APARNAALCIDES LucioJj TD [facility] CPT-4: 31024 01/24/2012 ([id number]) OFFICE/OUTPATIENT VISIT EST Diagnosis: SPASM OF MUSCLE[ICD9: 728.85] Diagnosis: Thoracic back pain[ICD9: 724.1] Diagnosis: Cervical pain[ICD9: 723.1] María Elena JUARES LucioJj KRISTYN PANDYA [facility] CPT-4: 49293 01/10/2012 OFFICE/OUTPATIENT VISIT EST Diagnosis: PAIN, LOWER BACK[ICD9: 724.2] Diagnosis: LUMBAR DISC DISPLACEMENT[ICD9: 722.10] María Elena MARIN LucioJj TD [facility] CPT-4: 90156 12/11/2011 OFFICE/OUTPATIENT VISIT EST Diagnosis: MIGRAINE NOS/NOT INTRCBL[ICD9: 346.90] Diagnosis: SINUSITIS, ACUTE[ICD9: 461.9] María Elena Seamusabbey JUARES LucioJj TD [facility] CPT-4: 25907 11/09/2011 OFFICE/OUTPATIENT VISIT EST Diagnosis: MIGRAINE NOS/NOT INTRCBL[ICD9: 346.90] Diagnosis: LYMPHADENOPATHY[ICD9: 785.6] María Elena Seamusabbey JUARES LucioJj TD [facility] CPT-4: 18627 09/13/2011 OFFICE/OUTPATIENT VISIT EST Diagnosis: MALAISE AND FATIGUE[ICD9: 780.79] Diagnosis: ARTHRALGIA-MULTIPLE SITES[ICD9: 719.49] María Elena REED LucioJj TD [facility] CPT-4: 60701 08/31/2011 OFFICE/OUTPATIENT VISIT EST Diagnosis: SINUSITIS, ACUTE[ICD9: 461.9] María Elena ValdesJj ORENDER DO [facility] CPT-4: 00602 07/20/2011 OFFICE/OUTPATIENT VISIT EST Diagnosis: HYPERTENSION[ICD9: 401.9] Diagnosis: PAIN, LOWER BACK[ICD9: 724.2] Diagnosis: SPASM OF MUSCLE[ICD9: 728.85] María Elena GODOYNDER DO [facility] CPT-4: 16007 07/06/2011 OFFICE/OUTPATIENT VISIT EST Diagnosis: MIGRAINE NOS/NOT INTRCBL[ICD9: 346.90] Diagnosis: HYPERTENSION[ICD9: 401.9] María Elena GODOY NDER DO [facility] CPT-4: 34582 05/22/2011 OFFICE/OUTPATIENT VISIT EST Diagnosis: SINUSITIS, ACUTE[ICD9: 461.9] Diagnosis: MIGRAINE NOS/NOT INTRCBL[ICD9: 346.90] Diagnosis: Dehydration[ICD9: 276.51] Diagnosis: Vomiting[ICD9: 787.03] María Elena Seamusmindimaryjane MARÍA ELENA LucioJj MARIVELE R DO [facility] CPT-4: 10399 05/09/2011 ([id number]) OFFICE/OUTPATIENT VISIT EST María Elena Td ISAAC UJARED S. ORENDER DO [facility] CPT-4: 98544 02/14/2011 ([id number]) OFFICE/OUTPATIENT VISIT EST María Elena Td ISAAC UJARED S. ORENDER DO [facility] CPT-4: 57419 02/03/2011 ([id number]) OFFICE/OUTPATIENT VISIT EST María Elena Seamusmindimaryjane ISAAC UJARED S. ORENDER DO [facility] CPT-4: 14221 01/31/2011 ([id number]) OFFICE/OUTPATIENT VISIT EST María Elena Td ISAAC UELINE S. ORENDER DO [facility] CPT-4: 20146 01/25/2011 ([id number]) OFFICE/OUTPATIENT VISIT EST María Elena Seamusmindimaryjane ISAAC UJARED S. ORENDER DO [facility] CPT-4: 65228 01/18/2011 ([id number]) OFFICE/OUTPATIENT VISIT EST María Elena Seamusmindimaryjane ISAAC UJARED S. [facility]END[facility] DO [facility] CPT-4: 21893 11/29/2010 ([id number]) OFFICE/OUTPATIENT VISIT, EST María Elena MONTERO APARNAALCIDES S. ORENDER DO [facility] CPT-4: 22457 10/10/2010 ([id number]) OFFICE/OUTPATIENT VISIT, EST María Elena GODOYNDER DO [facility] CPT-4: 99687 06/07/2010 ([id number]) OFFICE/OUTPATIENT VISIT, EST María Elena GODOYNDER DO [facility] CPT-4: 61736 04/27/2010 ([id number]) OFFICE/OUTPATIENT VISIT, EST María Elena REED SJj GODOYNDER DO [facility] CPT-4: 08580 04/05/2010 ([id number]) OFFICE/OUTPATIENT VISIT, EST María Elena REED SJj ORENDER DO [facility] CPT-4: 80429 03/09/2010 ([id number]) OFFICE/OUTPATIENT VISIT, EST María Elena GODOYNDER DO [facility] CPT-4: 08536 03/03/2010 ([id number]) OFFICE/OUTPATIENT VISIT, EST María Elena GODOYNDER [facility] CPT-4: 04648 01/17/2010 ([id number]) PREV VISIT, EST, AGE 40-64 María Elena GODOYNDER [facility] CPT-4: 91848 12/27/2009 Plan of Care Planned Activity Notes [...] ICD-10 : L60.0 10/07/2019 Appointment: Kathleen Zuniga [address] [facility] [place] OFFICE SURGERY 10/07/2019 Visit Diagnosis Plan: DM [...] E78.1 09/30/2019 Appointment: María Elena Appiah WPtel: [address] [place], [place] [phone] [place] CHECK UP 09/30/2019 Patient Education: Premarin- [employer] Coupon [id number] https://www.Multich[employer].com/samplemd/resources/getResource/61/99262w54-t132-1ddk-o5 Completed 09/30/2019 Appointment: María Elena Appiah WPtel: [address] [place], [place] [phone] [place] LAB 09/29/2019 Appointment: María Elena Appiah WPtel: [address] [place], [place] [phone] Won't have the new insurance till Sep 10. AMARILYS Longoria 07/24/2019 Visit Diagnosis Plan: Fall from bed, sequela Discussio n: DC gabapentin Decrease baclofen to 10mg TID prn ICD-9 : E929.3 ICD-10 : W06.XXXS 05/28/2019 Visit Diagnosis Plan: Essential (primary) hypertension Discussion: Stable Will have insurance in July and do lab then ICD-9 : 401.9 ICD-10 : I10 05/28/2019 Appointment: María Elena Appiah WPtel: [address] [place], [place] [phone] US FOLLOW UP 05/28/2019 Appointment: María Elena Appiah WPtel: [address] [place], [place] [phone] US BP CHECK 05/19/2019 Visit Diagnosis Plan: [...] ICD-10 : M51.16 01/22/2019 Appointment: María Elena Appiahtel: [address] [place], [place] [id number] [place] FOLLOW UP 01/22/2019 Patient Education: estradiol- [employer] Coupon [id number] https://www.[employer]ich[employer].Figgu/samplemd/resources/getResource/61/857j074e-7lg5-7k15-2n Completed 01/22/2019 Appointment: María Elena Appiahtel: [address] [place], [place] [phone] US CANCELED 01/20/2019 Appointment: María Elena Appiah WPtel: [address] [place] [address] US LM NO SHOW 01/06/2019 Appointment: María Elena Appiah WPtel: [address] [place] [address] US CANCELED 10/17/2018 Appointment: María Elena Appiah WPtel: [address] [place] [address] US BP CHECK 10/09/2018 Visit Diagnosis Plan: [...] 09/30/2018 Appointment: María Elena Appiah WPtel: [address] [place] [address] US FOLLOW UP 09/30/2018 Visit Diagnosis Plan: Pain in left elbow Discussion: T opical biofreeze and elbow pad ICD-9 : 719.42 ICD-10 : M25.522 08/27/2018 Visit Diagnosis Plan: Primary insomnia Recommendations : Stable on doxepin ICD-9 : 780.52 ICD-10 : F51.01 08/27/2018 Visit Diagnosis Plan: Abnormal weight gain Discussion: Phenteramine 37.5mg retrial Return in 1month for weight/BP check and punch biopsy removal of upper arm lesion ICD-9 : 783.1 ICD-10 : R63.5 08/27/2018 Appointment: María Elena Appiah WPtel: [address] [place] [address] ACUTE ILLNESS 08/27/2018 Appointment: María Elena Appiah WPtel: [address] [place] [address] [place] Patient stated she went out to [...] prn. Tyle... 08/09/2018 Appointment: María Elena Appiahtel: [address] [place] [address] ACUTE ILLNESS 08/09/2018 Appointment: María Elena Appiahtel: [address] [place] [address] NO SHOW 08/08/2018 Visit Diagnosis Plan: Anxiety [...] : B35.4 07/22/2018 Appointment: María Elena Appiahtel: [address] [place] [address] ACUTE ILLNESS 07/22/2018 Appointment: María Elena Appiah WPtel: [address] [place] [address] US INJECTION 06/19/2018 Patient Education: Patient Medication [...] ICD-10 : L03.031 06/17/2018 Appointment: Kathleen Zuniga [address] [place] [address] ACUTE ILLNESS 06/17/2018 Patient Education: Patient Medication [...] : B02.9 05/16/2018 Appointment: Kathleen Zuniga [address] [place] [address] ACUTE ILLNESS 05/16/2018 Patient Education: Patient Medication [...] ICD-10 : L03.115 03/20/2018 Appointment: Kathleen Zuniga [address] [place], [place] [address] FOLLOW UP 03/20/2018 Patient Education: Patient Medication [...] : L03.115 03/18/2018 Appointment: Kathleen Zuniga [address] [place] [phone] FOLLOW UP 03/18/2018 Patient Education: Patient Medication [...] : L03.115 03/15/2018 Appointment: Kathleen Zuniga 504 [facility] ACUTE ILLNESS 03/15/2018 Patient Education: Patient Medication [...] : J01.90 02/11/2018 Appointment: Kathleen Zuniga [address] [facility] ACUTE ILLNESS 02/11/2018 Patient Education: Patient Medication Summary Completed 02/11/2018 Appointment: María Elena Appiah WPtel: [phone] [facility] [place] INJECTION 02/01/2018 Patient Education: Patient Medication [...] ICD-10 : M51.16 01/30/2018 Appointment: Kathleen Zuniga [address] [place], [place] [id number] ACUTE ILLNESS 01/30/2018 Patient Education: [...] 12/18/2017 Appointment: María Elena Appiah WPtel: [phone] Annual Well Visit 12/18/2017 Patient Education: Patient Medication Summary Completed 12/18/2017 Care Plan: Referral Order SNOMED-CT : [id number] Pending 12/18/2017 Appointment: María Elena Appiah WPtel: [facility] [place] [address] [place] INJECTION 12/10/2017 Patient Education: Patient Medication [...] ICD-10 : L03.031 12/07/2017 Appointment: Kathleen Zuniga [address] [place] [address] ACUTE ILLNESS 12/07/2017 Patient Education: Patient Medication [...] ICD-10 : J01.00 10/08/2017 Appointment: Kathleen Zuniga [address] [place] [address] ACUTE ILLNESS 10/08/2017 Patient Education: Patient Medication Summary Completed 10/08/2017 Appointment: María Elena Appiah WPtel: [phone] [place] [address] [place] INJECTION 09/21/2017 Patient Education: Patient Medication [...] ICD-10 : R06.83 09/20/2017 Appointment: Kathleen Zuniga [address] [place], [place] [id number] ACUTE ILLNESS 09/20/2017 Patient Education: Patient Medication [...] ICD-10 : L60.0 08/29/2017 Appointment: Kathleen Zuniga [address] [place], [place] [phone] OFFICE SURGERY 08/29/2017 Patient Education: Patient Medication Summary Completed 08/29/2017 Visit Diagnosis Plan: Actinic keratosis Discussion: Cr yotherapy as above ICD-9 : 702.0 ICD-10 : L57.0 08/01/2017 Appointment: María Elena Appiah WPtel: [address] [place], [place] [phone] OFFICE SURGERY 08/01/2017 Patient Education: Patient Medication Summary Completed 08/01/2017 Appointment: María Elena Appiah WPtel: [address] [place], [place] [phone] PATIENT THOUGHT APPOINTMENT WAS TOMORROW 07/26/17 CALLED 15 MINUTES BEFORE APPT TO SAY SHE DIDN'T HAVE ANYONE TO COVER HER BUSINESS AND WOULD NOT MAKE IT NO SHOW 07/25/2017 Visit Diagnosis Plan: Cellulitis of left toe Discussio n: Clindamycin and notify if worsening or persistis ICD-9 : 681.10 ICD-10 : L03.032 07/19/2017 Appointment: María Elena Appiah WPtel: [address] [place], [place] [phone] MEDICATION REVIEW 07/19/2017 Patient Education: Patient Medication Summary Completed 07/19/2017 Appointment: María Elena Appiah WPtel: [address] [place], [place] [phone] [place] CANCELED 07/04/2017 Visit Diagnosis Plan: Generalized hyperhidrosis Discus ian: CBC, CMP, TSH, free T4 ordered to assess. will review labs. ICD-9 : 780.8 ICD-10 : R61 06/27/2017 Visit Diagnosis Plan: Chronic sinusitis, unspecified D iscussion: Referral sent to dr. albarado in [place] per patient request. patient has been treated multiple times for sinus infections with no recovery. patient was seen by dr sanchez in the past with no interventions. patient has deviated septum which may be affecting her sinuses. 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, including hip Discussion: Shave removal of above lesio n--sent to pathology ICD-9 : 216.7 ICD-10 : D23.72 01/24/2017 Appointment: María Elena Appiah WPtel: [address] [place], [place] [phone] 01/23 confirmed ~sl OFFICE SURGERY 01/24/2017 Patient Education: Patient Medication Summary Completed 01/24/2017 Appointment: Loan Sánchez [address] [place], [place] [phone] 01/09 rescheduled~sl RESCHEDULED 01/15/2017 [...] [phone] [place] 12/12 confirmed ~ MEDICATION REVIEW 12/13/2016 Patient Education: Patient Medication Summary Completed 12/13/2016 Appointment: María Elena Appiah [facility]el[facility] [phone] [id number] [place] rescheduled for 12/13/16 at 11am RESCHEDULED 0 12/06/2016 Appointment: María Elena pApiah [facility]Ptel: [phone] [id number] [place] CANCELED 11/23/2016 Patient Education: Patient [...] Elena Appiah [facility]Ptel[facility] [phone] [facility] [place] 10/31 lm `sl 11/01 lm`sl MEDICATION REVIEW 017 Patient Education: Patient Medication Summary Completed 11/01/2016 Referral: Canelo Overton WPtel: [phone] [id number] [place] Referral Initiated 10/30/2016 Visit Diagnosis Plan: [...] Z01.419 10/17/2016 Appointment: María Elena Appiah WPtel: [address] [place] [address] 10/16 confirmed ~sl PAP 10/17/2016 Patient Education: Patient Medication Summary Completed 10/17/2016 Care Plan: MAMMOGRAM SCREENING [facility] : [phone] Pending 10/17/2016 Visit Diagnosis Plan: Other seasonal allergic rhinitis Discussion: Decadron/Garamycin Nasal [place] Mix Too soon for steroid Retry zyrtec 10mg daily ICD-9 : 477.9 ICD-10 : J30.2 10/10/2016 Appointment: María Elena Appiah WPtel: [address] [place], [place] [phone] [place] FOLLOW UP 10/10/2016 Patient Education: Patient Medication Summary Completed 10/10/2016 Appointment: María Elena Appiah WPtel: [address] [place], [place] [phone] 10/02 reschedule `sl RESCHEDULED 10/02/2016 Visit Plan: See surgery for removal of n ew left arm lesion and right foot lesion Lyrica to use next month for left arm paresthesias Continue current meds Discussed sunscreen/sunblock combo 09/19/2016 Appointment: María Elena Appiah WPtel: [address] [place], [place] [phone] 09/18 confirmed ~sl FOLLOW UP 09/19/2016 Patient Education: Patient Medication Summary Completed 09/19/2016 Patient Education: Patient Medication Summary Completed 09/18/2016 Care Plan: MAMMOGRAM BOTH BREASTS LOINC : 09124-5 Pending 09/18/2016 Visit Plan: Discussed that needs [...] sinuses 08/24/2016 Appointment: María Elena Appiah WPtel: [address] [place] [address] ACUTE ILLNESS 08/24/2016 Patient Education: Patient Medication Summary Completed 08/24/2016 Patient Education: Patient Medication Summary Completed 08/23/2016 Care Plan: MAMMOGRAM SCREENING LOINC : 2 6347-5 Pending 08/23/2016 Visit Plan: Finish doxycycline Add Breo 100/25 1 p BID for 2 weeks If not improving within next 2 days will get CXR 08/16/2016 Appointment: María Elena Appiah WPtel: [address] [place] [address] ACUTE ILLNESS 08/16/2016 Patient Education: Patient Medication Summary Completed 08/16/2016 Visit Plan: Supportive care. Rest, Fluid s, Tylenol/Motrin prn fever or bodyaches. Notify if worsening symptoms. Doxycyline and Prednisone 08/10/2016 Appointment: María Elena Appiah WPtel: [address] [place] [address] 08/09 lm`sl....confirmed-sp FOLLOW UP 09/2015 Patient Education: Patient Medication Summary Completed 08/10/2016 Visit Plan: Saline nasal flushes prn. Ty lenol/Motrin prn headache. Notify if persists/symptoms worsening. Dexamethasone 8mg IM today May use coricedan and mucinex 08/02/2016 Appointment: María Elena Appiah WPtel: [address] [place], [place] [phone] ACUTE ILLNESS 08/02/2016 Patient Education: Patient Medication Summary Completed 08/02/2016 Visit Plan: Cryotherapy as above and lef t forearm lesion removal as above with 5-0 punch biopsy and sent to path Return in 10 days for suture removal 08/01/2016 Appointment: María Elena Appiah WPtel: [address] [place] [address] 07/31 confirmed`~ OFFICE SURGERY 08/01/2016 Patient Education: Patient Medication Summary Completed 08/01/2016 Visit Plan: Stop clindamycin Check CBC, CMP, ESR now/STAT 07/27/2016 Appointment: María Elena Appiah WPtel: [address] [place] [address] ACUTE ILLNESS 07/27/2016 Patient Education: Patient Medication Summary Completed 07/27/2016 Visit Plan: Update lab and check ABIs to start with Will likely need cardiology evaluation to rule out PVD Clindamycin for 10 days Daily yogurt or probiotic Will return for removal of left arm lesions 07/20/2016 Appointment: María Elena Appiah WPtel: [address] [place] [address] ACUTE ILLNESS 07/20/2016 Patient Education: Patient Medication Summary Completed 07/20/2016 Patient Education: Patient Medication Summary Completed 07/20/2016 Care Plan: MAMMOGRAM BOTH BREASTS LOINC : 60118-1 Pending 07/20/2016 Care Plan: US EXAM CHEST LOINC : 75543-9 Pending 07/20/2016 Visit Plan: Wound culture collected from left great toe Appearance is somewhat staph like Rx as above Wound cleanser and skin care reviewed May need to add oral antibiotic if sores do not heal or continue to reoccur 07/06/2016 Appointment: Loan Sánchez [address] [place] [address] ACUTE ILLNESS 07/06/2016 Patient Education: Patient Medication Summary Completed 07/06/2016 Appointment: María Elena Appiah WPtel: [address] [place] [address] US INJECTION 05/25/2016 Patient Education: Patient Medication Summary Completed 05/25/2016 Visit Plan: Saline nasal flushes prn. Ty lenol/Motrin prn headache. Notify if persists/symptoms worsening. Dexamethasone and Rocephin given 04/26/2016 Appointment: María Elena Appiah WPtel: [address] [place] [address] ACUTE ILLNESS 04/26/2016 Patient Education: Patient Medication Summary Completed 04/26/2016 Visit Plan: Check CBC, CMP, TSH, FreeT4, HbA1C, estradiol, lipids in AM 03/02/2016 Appointment: María Elena Appiah WPtel: [address] [place] [address] 03/01 lm~sl ACUTE ILLNESS 03/02/2016 Patient Education: Patient Medication Summary Completed 03/02/2016 Visit Plan: Exam is nearly normal Needs to be taking daily antihistamine Would prefer to use oral steroids instead of shot but patient insist that oral steroids cause horrible headaches for her Will given kenalog IM instead 02/09/2016 Appointment: Loan Sánchez [address] [place] [address] ACUTE ILLNESS 02/09/2016 Patient Education: Patient Medication Summary Completed 02/09/2016 Visit Plan: Culture urine Macrobid DC xa nax Trial of Ativan 1mg q HS 01/24/2016 Appointment: María Elena Appiah WPtel: [address] [place] [address] ACUTE ILLNESS 01/24/2016 Patient Education: Patient Medication Summary Completed 01/24/2016 Visit Plan: No steroid or rocephin injec tion warranted Can have oral prednisone Continue current home regimen Needs to follow up with Dr Sanchez if problems persist 12/23/2015 Appointment: Loan Sánchez [address] [place] [address] ACUTE ILLNESS 12/23/2015 Patient Education: Patient Medication Summary Completed 12/23/2015 Visit Plan: Saline nasal flushes prn. Ty lenol/Motrin prn headache. Notify if persists/symptoms worsening. Kenalog 40mg IM today 12/08/2015 Appointment: María Elena Appiah WPtel: [address] [place], [place] [phone] 12/06 confirmed~sl ACUTE ILLNESS 12/08/2015 Patient Education: Patient Medication Summary Completed 12/08/2015 Appointment: María Elena Appiah WPtel: [address] [place], [place] [phone] ACUTE ILLNESS 11/18/2015 Patient Education: Patient Medication Summary Completed 10/11/2015 Appointment: María Elena Appiah WPtel: [address] [place], [place] [phone] [place] INJECTION 10/07/2015 Patient Education: Patient Medication Summary Completed 10/07/2015 Visit Plan: Check renal arterial doppler s and ECHO Change amlodopine to lotrel 5/20mg q HS Will need stress test as well Check CMP, uric acid, ESR 10/06/2015 Appointment: María Elena Appiah WPtel: [address] [place], [place] [id number] ACUTE ILLNESS 10/06/2015 Patient Education: Patient Medication Summary Completed 10/06/2015 Patient Education: [facility] - Saving [employer] - Amlodipine Besylate - 18-64 - Dynamic Portal ID Completed 10/06/2015 Appointment: María Elena Appiah WPtel: [address] [place], [place] [phone] FOLLOW UP 09/22/2015 Visit Plan: Cephalexin 500 mg PO bid Mery ly topical Mupirocin to lesions on left lateral neck and face Follow-up in one week. Sooner if symptoms worsen 09/14/2015 Appointment: June Flores WPtel: [address] [place], [place] [phone] ACUTE ILLNESS 09/14/2015 Patient Education: Patient Medication Summary Completed 09/14/2015 Visit Plan: Change bystolic to bedtime d osing and amlodopine to morning dosing Cryotherapy as above to AKs 09/07/2015 Appointment: María Elena Appiah WPtel: [address] [place] [phone] 09/06 appointment made and confirmed ~sl FOLLOW UP 09/07/2015 Patient Education: Patient Medication Summary Completed 09/07/2015 Visit Plan: Increase bystolic back to 20 mg daily but will split and take 10mg in AM and 10mg in PM Stress Reducers 08/18/2015 Appointment: María Elena Appiah WPtel: [address] [place], [place] [phone] 08/17/15 appt confirmed cn ACUTE ILLNESS 08/18 Patient Education: Patient Medication Summary Completed 08/18/2015 Appointment: María Elena Appiah WPtel: [address] [place], [place] [phone] BP CHECK 07/07/2015 Patient Education: Patient Medication Summary Completed 07/07/2015 Appointment: María Elena Appiah WPtel: [address] [place] [address] BP CHECK 06/24/2015 Patient Education: Patient Medication Summary Completed 06/24/2015 Appointment: María Elena Appiah WPtel: [address] [place] [address] BP CHECK 06/21/2015 Patient Education: Patient Medication Summary Completed 06/21/2015 Visit Plan: Lab discussed Continue pipere nt meds and lifestyle modification Recheck lab in 6mos 06/16/2015 Appointment: María Elena Appiah WPtel: [address] [place] [address] 06/15 confirmed FOLLOW UP 06/16/2015 Patient Education: Patient Medication Summary Completed 06/16/2015 Patient Education: Patient Medication Summary Completed 06/15/2015 Visit Plan: Increase cymbalta to 60mg q HS Keep clonidine at current dose Recheck 2weeks Change xanax to klonopin 06/02/2015 Appointment: María Elena Appiah WPtel: [address] [place] [phone] 06/02 lm FOLLOW UP 06/02/2015 Patient Education: Patient Medication Summary Completed 06/02/2015 Appointment: María Elena Appiah WPtel: [address] [place] [address] ACUTE ILLNESS 05/24/2015 Visit Plan: Increase clonidine to 0.2mg q HS Add cymbalta 30mg q HS Recheck 2weeks Stress Reducers Check fasting lab Discussed sleep study 05/20/2015 Appointment: María Elena Appiah WPtel: [address] [place] [address] ACUTE ILLNESS 05/20/2015 Patient Education: Patient Medication Summary Completed 05/20/2015 Patient Education: [facility] [employer] [employer] - Cymbalta - 18-64 - Dynamic Portal ID Completed 05/20/2015 Appointment: María Elena Appiah WPtel: [address] [place] [address] BP CHECK 05/19/2015 Patient Education: Patient Medication Summary Completed 05/19/2015 Visit Plan: Topical Bactroban alternatin g with topical betamethasone Recheck 2weeks 05/10/2015 Appointment: María Elena Appiah WPtel: [address] [place] [address] 05/07 cn...05/07 appt confirmed OFFICE SURGER Y 05/10/2015 Patient Education: Patient Medication Summary Completed 05/10/2015 Referral: Patrick Chandler WPtel: [address] Referral Initiated 05/04/2015 Visit Plan: Saline nasal flushes prn. Ty lenol/Motrin prn headache. Notify if persists/symptoms worsening. Depomedrol 40mg IM today 03/16/2015 Appointment: María Elena Appiah WPtel: [address] [place] [address] ACUTE ILLNESS 03/16/2015 Patient Education: Patient Medication Summary Completed 03/16/2015 Appointment: María Elena Appiah WPtel: [address] [place] [address] ER Follow UP 03/09/2015 Visit Plan: Cryotherapy to lesions as ab ove 10/27/2014 Appointment: María Elena Appiah WPtel: [address] [place] [address] OFFICE SURGERY 10/27/2014 Patient Education: Patient Medication Summary Completed 10/27/2014 Appointment: June Flores WPtel: [address] [place] [address] ACUTE ILLNESS 09/11/2014 Patient Education: Patient Medication Summary Completed 09/11/2014 Visit Plan: Lab discussed Lipitor 10mg d aily Coenzyme Q-10 400mg daily Vitamin D3 5000u daily Recheck lipids with LFTs in 3mos then fwup 08/31/2014 Appointment: María Elena Appiah WPtel: [address] [place] [address] 08/28 voicemail FOLLOW UP 08/31/2014 Patient Education: Patient Medication Summary Completed 08/31/2014 Appointment: María Elena Appiah WPtel: [address] [place] [address] US LAB 08/27/2014 Appointment: María Elena Appiah WPtel: [address] [place], [place] [phone] [place] LAB 08/27/2014 Patient Education: Patient Medication Summary Completed 08/27/2014 Appointment: María Elena Appiah WPtel: [address] [place] [address] ACUTE ILLNESS 07/23/2014 Appointment: María Elena Appiah WPtel: [address] [place] [address] ACUTE ILLNESS 07/21/2014 Patient Education: Patient Medication Summary Completed 07/21/2014 Visit Plan: Kenalog 40mg IM today Contin ue narendra and singulair Add Flonase 07/15/2014 Appointment: María Elena Appiah WPtel: [address] [place], [place] [address] ACUTE ILLNESS 07/15/2014 Appointment: María Elena Appiah WPtel: [address] [place] [phone] ACUTE ILLNESS 07/15/2014 Patient Education: Patient Medication Summary Completed 07/15/2014 Visit Plan: Will do metolazone 2.5mg prn with 6 potassium and see if causes as severe cramping Trial of of seroquel XR 50mg q PM with evening meal and let us know how works 05/18/2014 Appointment: María Elena Appiah WPtel: [address] [place] [phone] 05/15 left message FOLLOW UP 05/18/2014 Patient Education: Patient Medication Summary Completed 05/18/2014 Appointment: María Elena Appiah WPtel: [address] [place] [phone] LAB 05/14/2014 Patient Education: Patient Medication Summary Completed 05/14/2014 Appointment: María Elena Appiah WPtel: [address] [place] [phone] US INJECTION 04/22/2014 Visit Plan: Nimco today a nd finish abx given from urgent care 04/21/2014 Appointment: María Elena Appiah WPtel: [address] [place], [place] [phone] [place] INJECTION 04/21/2014 Patient Education: Patient Medication Summary Completed 04/21/2014 Appointment: June Flores WPtel: [address] [place], [place] [phone] ACUTE ILLNESS 03/04/2014 Patient Education: Patient Medication Summary Completed 03/04/2014 Appointment: María Elena Appiah WPtel: [address] [place] [phone] [place] INJECTION 02/27/2014 Patient Education: Patient Medication Summary Completed 02/27/2014 Visit Plan: Cryotherapy as above to all lesions Patient wants to try no meds for insomnia for a while and see how goes 01/13/2014 Appointment: María Elena Appiah WPtel: [address] [place] [address] OFFICE SURGERY 01/13/2014 Patient Education: Patient Medication Summary Completed 01/13/2014 Visit Plan: Stop Melatonin Stop Soma Tri al of trazadone 75mg q HS See ENT for possible tubes as has had chronic ETD and serous otitis media with numerous steroids 12/24/2013 Appointment: María Elena Appiah WPtel: [address] [place] [address] ACUTE ILLNESS 12/24/2013 Patient Education: Patient Medication Summary Completed 12/24/2013 Visit Plan: Saline nasal flushes prn. Ty lenol/Motrin prn headache. Notify if persists/symptoms worsening. 11/12/2013 Appointment: María Elena Appiah WPtel: [address] [place] [address] ACUTE ILLNESS 11/12/2013 Patient Education: Patient Medication Summary Completed 11/12/2013 Appointment: María Elena Appiah WPtel: [address] [place] [address] ACUTE ILLNESS 10/21/2013 Patient Education: Patient Medication Summary Completed 10/21/2013 Visit Plan: Sleep hygiene and sleep rout ine Melatonin 10mg q HS Support stockings and observe 09/22/2013 Appointment: María Elena Appiah WPtel: [address] [place] [address] ACUTE ILLNESS 09/22/2013 Patient Education: Patient Medication Summary Completed 09/22/2013 Appointment: June Flores WPtel: [address] [place] [address] ACUTE ILLNESS 08/27/2013 Patient Education: Patient Medication Summary Completed 08/27/2013 Visit Plan: Proceed with CT scan of head /neck Proceed with occipital nerve injections Butrans 20mcg patch weekly until can get into see Dr. Mcdonough for injections 08/04/2013 Appointment: María Elena Appiahtejaylin: [address] [place] [address] FOLLOW UP 08/04/2013 Patient Education: Patient Medication Summary Completed 08/04/2013 Visit Plan: OMT done Daily neck stretche s, moist heat Increase Celebrex to 200mg BID Add flexeril 07/23/2013 Appointment: María Elena Appiah WPtel: [address] [place] [address] 07/22 voicemail FOLLOW UP 07/23/2013 Patient Education: Patient Medication Summary Completed 07/23/2013 Appointment: María Elena Appiah WPtel: [address] [place] [address] ACUTE ILLNESS 06/23/2013 Patient Education: Patient Medication Summary Completed 06/23/2013 Appointment: María Elena Appiah WPtel: [address] [place] [address] ACUTE ILLNESS 05/26/2013 Patient Education: Patient Medication Summary Completed 05/26/2013 Visit Plan: Decrease clonidine to 0.1mg TID If BP remains stable consider decreasing amlodopine Prednisone for 5 days BP check in 1mo 04/16/2013 Appointment: María Elena Appiah WPtel: [address] [place] [address] 04/14 pt called and confirmed appt FOLLOW UP 04/16/2013 Patient Education: Patient Medication Summary Completed 04/16/2013 Appointment: María Elena Appiah WPtel: [address] [place] [address] ACUTE ILLNESS 03/05/2013 Patient Education: Patient Medication Summary Completed 03/05/2013 Visit Plan: Pt has MARIA ELENA on with Dr. Sharonda Matthews patch Refill Hydrocodone early tomorrow 12/23/2012 Appointment: María Elena Appiah WPtel: [address] [place] [address] FOLLOW UP 12/23/2012 Patient Education: Patient Medication Summary Completed 12/23/2012 Appointment: Lashawn Eckert WPtel: [address] [place] [address] ACUTE ILLNESS 12/16/2012 Patient Education: Patient Medication Summary Completed 12/16/2012 Visit Plan: Proceed with updated MRI of LS spine Continue gabapentin and add soma and diclofenac Will likely need to go for another epidural 12/09/2012 Appointment: María Elena Appiah WPtel: [address] [place] [address] ACUTE ILLNESS 12/09/2012 Patient Education: Patient Medication Summary Completed 12/09/2012 Visit Plan: Injection as above Finish me drol dose pack Chiropracter this afternoon 12/04/2012 Appointment: María Elena Appiah WPtel: [address] [place] [address] ACUTE ILLNESS 12/04/2012 Patient Education: Patient Medication Summary Completed 12/04/2012 Appointment: Mary Tillman WPtel: [address] [place] [address] FOLLOW UP 11/22/2012 Patient Education: Patient Medication Summary Completed 11/22/2012 Appointment: María Elena Appiah WPtel: [address] [place] [address] ACUTE ILLNESS 11/21/2012 Patient Education: Patient Medication Summary Completed 11/21/2012 Appointment: María Elena Appiah WPtel: [address] [place] [address] BP CHECK 11/07/2012 Patient Education: Patient Medication [...] BP re-check. 10/29/2012 Appointment: Lashawn Eckert WPtel: [address] [place], [place] [phone] ACUTE ILLNESS 10/29/2012 Patient Education: Patient Medication Summary Completed 10/29/2012 Appointment: María Elena Appiah WPtel: [address] [place] [phone] ACUTE ILLNESS 10/14/2012 Patient Education: Patient Medication Summary Completed 10/14/2012 Appointment: María Elena Appiah WPtel: [address] [place], [place] [phone] UA 09/27/2012 Patient Education: Patient Medication Summary Completed 09/27/2012 Appointment: María Elena Appiah WPtel: [address] [place], [place] [phone] ACUTE ILLNESS 09/25/2012 Patient Education: Patient Medication Summary Completed 09/25/2012 Appointment: María Elena Appiah WPtel: [address] [place] [address] BP CHECK 09/24/2012 Appointment: María Elena Appiah WPtel: [address] [place] [address] ACUTE ILLNESS 08/29/2012 Patient Education: Patient Medication Summary Completed 08/29/2012 Visit Plan: Cryotherapy as above See Karlos m for right ear lesion--probable MOHs procedure Increase amlodopine to 10mg daily 08/12/2012 Appointment: María Elena Appiah WPtel: [address] [place], [place] [phone] OFFICE SURGERY 08/12/2012 Patient Education: Patient Medication Summary Completed 08/12/2012 Appointment: María Elena Appiah WPtel: [address] [place], [place] [phone] 05/03 vm on pt phone...pt called on 04/11 3 pt called wanting in had no one cancel so could not get her in for an appt sooner than 05/06. ACUTE ILLNESS 05/06/2012 Patient Education: Patient Medication Summary Completed 05/06/2012 Visit Plan: Pt wants to hold on any furt her sleep medications 04/03/2012 Appointment: María Elena Appiahtel: [address] [place] [address] FOLLOW UP 04/03/2012 Patient Education: Patient Medication Summary Completed 04/03/2012 Appointment: María Elena Appiahtel: [address] [place] [address] FOLLOW UP 03/19/2012 Patient Education: Patient Medication Summary Completed 03/19/2012 Appointment: María Elena Appiahtel: [address] [place] [address] BP CHECK 02/22/2012 Patient Education: Patient Medication Summary Completed 02/22/2012 Appointment: María Elena Appiahtel: [address] [place] [address] BP CHECK 02/21/2012 Patient Education: Patient Medication Summary Completed 02/21/2012 Visit Plan: Doxycycline and bactroban fo r foot Supportive care on ankles and knees Add norvasc for BP 02/20/2012 Appointment: María Elena Appiahtel: [address] [place] [address] ER Follow UP 02/20/2012 Patient Education: Patient Medication Summary Completed 02/20/2012 Appointment: María Elena Appiahtel: [address] [place] [address] ACUTE ILLNESS 01/30/2012 Patient Education: Patient Medication Summary Completed 01/30/2012 Appointment: María Elena Appiahtel: [address] [place] [address] ACUTE ILLNESS 01/24/2012 Patient Education: Patient Medication Summary Completed 01/24/2012 Visit Plan: Daily back stretches, moist heat, Biofreeze prn OMT done 01/10/2012 Appointment: María Elena Appiah WPtel: [address] [place] [address] ACUTE ILLNESS 01/10/2012 Patient Education: Patient Medication Summary Completed 01/10/2012 Appointment: María Elena Appiahtel: [address] [place] [address] FOLLOW UP 12/11/2011 Patient Education: Patient Medication Summary Completed 12/11/2011 Appointment: María Elena Appiah WPtel: [address] [place] [address] ACUTE ILLNESS 11/09/2011 Patient Education: Patient Medication Summary Completed 11/09/2011 Appointment: María Elena Appiahtel: [address] [place] [address] ACUTE ILLNESS 09/13/2011 Patient Education: Patient Medication Summary Completed 09/13/2011 Visit Plan: Check CBC, TSH, Free T4, CMP , ESR, Vit D, B12 now Start Prednisone today 08/31/2011 Appointment: María Elena Appiah WPtel: [address] [place] [address] ACUTE ILLNESS 08/31/2011 Patient Education: Patient Medication Summary Completed 08/31/2011 Appointment: María Elena Appiahtel: [address] [place] [address] US INJECTION 07/20/2011 Patient Education: Patient Medication Summary Completed 07/20/2011 Visit Plan: Continue current meds Monite r BP Cont stretches from PT 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 07/06/2011 Appointment: María Elena Appiahtel: [address] [place] [address] FOLLOW UP 07/06/2011 Patient Education: Patient Medication Summary Completed 07/06/2011 Appointment: María Elena Appiahtel: [address] [place] [address] US BP CHECK 06/06/2011 Patient Education: Patient Medication Summary Completed 06/06/2011 Visit Plan: Add Bystolic at 2.5mg QAM Ad d Robaxin 750mg 2 po q HS BP check in 2wks 05/22/2011 Appointment: María Elena Appiah WPtel: [address] [place], [place] [phone] FOLLOW UP 05/22/2011 Patient Education: Patient Medication Summary Completed 05/22/2011 Appointment: María Elena Appiah WPtel: [address] [place] [address] ER Follow UP 05/09/2011 Patient Education: Patient Medication Summary Completed 05/09/2011 Appointment: María Elena Appiah WPtel: [address] [place] [address] FOLLOW UP 02/22/2011 Visit Plan: Rx written for Hydrocodone 1 0/325mg #240 See Ortho 02/14/2011 Appointment: María Elena Appiah WPtel: [address] [place] [address] OMT 02/14/2011 Patient Education: Patient Medication Summary [...] lab work. 02/03/2011 Appointment: Lashawn Eckert WPtel: [address] [place], [place] [phone] ACUTE ILLNESS 02/03/2011 Patient Education: Patient Medication Summary Completed 02/03/2011 Visit Plan: OMT done Cont daily stretche s 01/31/2011 Appointment: María Elena Appiah WPtel: [address] [place] [address] ACUTE ILLNESS 01/31/2011 Patient Education: Patient Medication Summary Completed 01/31/2011 Visit Plan: Continue pain meds OMT done Proceed with PT No work this summer01/25/2011 Appointment: María Elena Appiah WPtel: [address] [place] [address] ACUTE ILLNESS 01/25/2011 Patient Education: Patient Medication Summary Completed 01/25/2011 Visit Plan: Start PT Long discussion abo ut getting pain meds from only us and can only have max of 4grams of tylenol per day Change to Hydrocodone 10/325mg 1- 2 po TID prn pain--#180 called to [place] 01/18/2011 Appointment: María Elena Appiah WPtel: [address] [place] [address] FOLLOW UP 01/18/2011 Patient Education: Patient Medication Summary Completed 01/18/2011 Visit Plan: Daily back stretches, moist heat, Biofreeze prn 11/29/2010 Appointment: María Elena Appiah WPtel: [address] [place] [address] ER Follow UP 11/29/2010 Patient Education: Patient Medication Summary Completed 11/29/2010 Visit Plan: Saline nasal flushes prn. Ty lenol/Motrin prn headache. Notify if persists/symptoms worsening. Finish augmentin Add Medrol Dose Pack 10/10/2010 Appointment: María Elena Appiah WPtel: [address] [place] [address] ACUTE ILLNESS 10/10/2010 Patient Education: Patient Medication Summary Completed 10/10/2010 Visit Plan: Cryotherapy x3 to multiple l esions on both forearms 07/19/2010 Appointment: María Elena Appiah WPtel: [address] [place] [address] OFFICE SURGERY 07/19/2010 Patient Education: Patient Medication Summary Completed 07/19/2010 Appointment: María Elena Appiah WPtel: [address] [place] [address] BP CHECK 07/06/2010 Patient Education: Patient Medication Summary Completed 07/06/2010 Appointment: María Elena Appiah WPtel: [address] [place] [address] BP CHECK 06/30/2010 Patient Education: Patient Medication Summary Completed 06/30/2010 Appointment: María Elena Appiah WPtel: [address] [place] [address] BP CHECK 06/20/2010 Patient Education: Patient Medication Summary Completed 06/20/2010 Visit Plan: Change Diovan to Exforge 160 /5mg QD OMT done to thoracics BP check in 2wks 06/07/2010 Appointment: María Elena Appiah WPtel: [address] [place] [address] FOLLOW UP 06/07/2010 Patient Education: Patient Medication Summary Completed 06/07/2010 Appointment: María Elena Appiahtel: [address] [place] [address] BP CHECK 06/03/2010 Patient Education: Patient Medication Summary Completed 06/03/2010 Appointment: María Elena Appiahtel: [address] [place] [address] BP CHECK 06/01/2010 Patient Education: Patient Medication Summary Completed 06/01/2010 Visit Plan: Irritated skin tags to left neck x2 excised at base with scissors and base cauterized 05/30/2010 Appointment: María Elena Appiah WPtel: [address] [place] [address] OFFICE SURGERY 05/30/2010 Patient Education: Patient Medication Summary Completed 05/30/2010 Visit Plan: Saline nasal flushes prn. Ty lenol/Motrin prn headache. Notify if persists/symptoms worsening. Restart Nasonex Has allergy testing set for May 15 04/27/2010 Appointment: María Elena Appiahtel: [address] [place] [address] ACUTE ILLNESS 04/27/2010 Patient Education: Patient Medication Summary Completed 04/27/2010 Visit Plan: Saline nasal flushes prn. Ty lenol/Motrin prn headache. Notify if persists/symptoms worsening. Omnaris BID plus injections 04/05/2010 Appointment: María Elena Appiah WPtel: [address] [place] [address] ACUTE ILLNESS 04/05/2010 Patient Education: Patient Medication Summary Completed 04/05/2010 Visit Plan: Saline nasal flushes prn. Ty lenol/Motrin prn headache. Notify if persists/symptoms worsening. 03/09/2010 Appointment: María Elena Appiahtel: [address] [place] [address] ACUTE ILLNESS 03/09/2010 Patient Education: Patient Medication Summary Completed 03/09/2010 Visit Plan: Cont Clonidine as is Cont Pr emarin Fwup with surgery as scheduled 03/03/2010 Appointment: María Elena Appiahtel: [address] [place] [address] FOLLOW UP 03/03/2010 Patient Education: Patient Medication Summary Completed 03/03/2010 Visit Plan: Check Pelvic US now [place] aSl C vs Hysterectomy 01/17/2010 Appointment: María Elena Appiahtel: [address] [place] [address] ACUTE ILLNESS 01/17/2010 Patient Education: Patient Medication Summary Completed 01/17/2010 Visit Plan: Check fasting lab and schedu le Mammogram 2gm Na Diet Trial of Ambien 10mg qhs Fwup pending lab results 12/27/2009 Appointment: María Elena Appiahtel: [address] [place] [address] ESTABLISHED PATIENT 12/27/2009 Patient Education: Patient Medication Summary Completed 12/27/2009 Referral: Canelo Overton WPtel: [phone] [id number] [place] Referral Initiated Referral: Philipp Flores WPtel: [address] [id number] [place] Referral Appointment Requested Instructions Comment . [...] fwup . Kenalog 40mg IM today Continue nraendra and singulair Add Flonase . Will do [...]
--- OUTSIDE RECORDS SUMMARY | 2020-03-13 05:54 | XMS REPORT | CCD ---
Author Author Gale Appiah D.O. Organization [facility] Address [address] [place] [id number] Phone Care Team Providers Care Fall Intern Name Role Phone María Elena Appiah D.O., PP Unavailable CCM Unavailable Summary Purpose Interface Exchange Insurance Providers Payer name Policy type / Coverage type Covered alliance party ID Effective Begin Date Effective End Date [facility] Commercial Insurance [id number] Unknown Family History Family History data not found Social History Social History Element Codes Description Effective Dates Tobacco history SNOMED CT: [id number] Never smoker 05/22/2011 Allergies, Adverse Reactions, Alerts [...] Instructions duloxetine 60 mg capsule,delayed release RxNorm: 102536 1 Capsu le(s) Oral QD 10/17/2019 04/13/2020 Active celecoxib 200 mg capsule RxNorm: 921290 1 Capsule(s) Or al two times a day as needed for pain 10/17/2019 01/14/2020 Active lisinopril 20 mg tablet RxNorm: 673585 1 Tablet(s) Oral QD 10/17/19 20 04/13/2020 Active gabapentin 300 mg capsule RxNorm: 467856 1 Capsule(s) O ral every night at bedtime 10/17/2019 01/15/2020 Active Singulair 10 mg tablet RxNorm: 248584 1 Tablet(s) Oral QD 10/17/2019 04/14/2020 Active Klor-Con 8 mEq tablet,extended release RxNorm: 874021 1 Tablet(s) Oral two times a day 10/17/2019 11/16/2019 Active metoprolol tartrate 100 mg tablet RxNorm: 472452 1 Tabl et(s) Oral two times a day 10/17/2019 04/13/2020 Active clonidine HCl 0.1 mg tablet RxNorm: 671757 1 Tablet(s) Oral fou r times a day 10/17/2019 04/13/2020 Active Januvia 100 mg tablet RxNorm: 287681 1 Tablet(s) Oral QD 10/17/2019 No Stop Date Active Lipitor 10 mg tablet RxNorm: 619497 1 Tablet(s) Oral QD 10/17/2019 Active Steglatro 15 mg tablet RxNorm: 5117168 1 Tablet(s) Oral QD 10/17/19 No Stop Date Active Glyxambi 25 mg-5 mg tablet RxNorm: 5471102 1 Tablet(s) Oral QD 01/202010/16/2019 Inactive Patient will bring in copay discount card as well Glyxambi 25 mg-5 mg tablet RxNorm: 1306814 1 Tablet(s) Oral QD 01/202010/14/2019 Inactive Patient will bring in copay discount card as well Keflex 500 mg capsule RxNorm: 338212 1 Capsule(s) Oral two time s a day 10/07/2019 10/14/2019 Inactive Premarin 1.25 mg tablet RxNorm: 301450 1 Tablet(s) Oral QD 09/30/1906/25/2020 Active hydrocodone 10 mg-acetaminophen 325 mg tablet RxNorm: 592315 1-2 Tablet(s) Oral three times a day as needed for pain 09/30/2019 09/30/2019 Inactive baclofen 10 mg tablet RxNorm: 745996 TAKE ONE TABLET BY MOUTH THREE TIMES A DAY NEEDED 09/19/2019 No Stop Date Active gabapentin 300 mg capsule RxNorm: 330641 TAKE ONE CAPSU LE BY MOUTH EVERY NIGHT AT BEDTIME 09/19/2019 10/16/2019 Inactive Klor-Con 8 mEq tablet,extended release RxNorm: 542943 T FARRUKH ONE TABLET BY MOUTH TWICE A DAY 1 Tablet(s) Oral two times a day 09/19/2019 10/16/2019 [place] ctive hydrocodone 10 mg-acetaminophen 325 mg tablet RxNorm: 794149 1-2 Tablet(s) Oral three times a day as needed for pain 09/19/2019 09/29/2019 Inactive triamterene 75 mg-hydrochlorothiazide 50 mg tablet RxNorm: 3 15698 TAKE ONE TABLET BY MOUTH DAILY 09/11/2019 No Stop Date Active allopurinol 300 mg tablet RxNorm: 089129 TAKE ONE TABLET BY LOPEZ TH DAILY 09/11/2019 No Stop Date Active duloxetine 60 mg capsule,delayed release RxNorm: 617964 TAKE ONE CAPSULE BY MOUTH DAILY 09/11/2019 10/16/2019 Inactive Lipitor 10 mg tablet RxNorm: 108123 TAKE ONE TABLET BY MOUTH AT BEDTIME 09/11/2019 10/16/2019 Inactive lisinopril 20 mg tablet RxNorm: 128031 TAKE ONE TABLET BY MOUTH DAILY .... THIS REPLACE 10MG TABLETS 09/11/2019 10/16/2019 Inactive celecoxib 200 mg capsule RxNorm: 101270 TAKE ONE CAPSUL E BY MOUTH TWICE A DAY NEEDED FOR PAIN 09/11/2019 10/16/2019 Inactive clonidine HCl 0.1 mg tablet RxNorm: 955342 TAKE ONE TAB LET BY MOUTH FOUR TIMES A DAY 09/11/2019 10/16/2019 Inactive doxepin 25 mg capsule RxNorm: 3201811 1 Capsule(s) Oral every night at bedtime as needed for sleep 08/21/2019 11/18/2019 Active hydrocodone 10 mg-acetaminophen 325 mg tablet RxNorm: 889385 1-2 Tablet(s) PO TID 08/12/2019 09/29/2019 Inactive as needed for pa in - Previous quantity #240, will start dosing for #180 in April 2011 per Doctor Td. Medrol (Dustin) 4 mg tablets in a dose pack RxNorm: 365419 Tablet(s) Oral As Directed 07/21/2019 09/29/2019 Inactive Premarin 1.25 mg tablet RxNorm: 179835 1 Tablet(s) Oral QD 07/02/20 19 09/29/2019 Inactive hydrocodone 10 mg-acetaminophen 325 mg tablet RxNorm: 901791 1-2 Tablet(s) PO TID 07/01/2019 08/11/2019 Inactive as needed for pa in - Previous quantity #240, will start dosing for #180 in April 2011 per Doctor Td. gabapentin 300 mg capsule RxNorm: 482234 1 Capsule(s) PO QHS 201809/18/2019 Inactive celecoxib 200 mg capsule RxNorm: 263387 1 Capsule(s) Or al two times a day as needed for pain 06/27/2019 06/27/2019 Inactive furosemide 40 mg tablet RxNorm: 666496 TAKE ONE TABLET BY MOUTH EVERY MORNING NEEDED FOR EDEMA . TAKE WITH POTASSIUM 06/24/2019 No Stop Date Active doxepin 25 mg capsule RxNorm: 2421647 TAKE ONE CAPSULE B Y MOUTH EVERY NIGHT AT BEDTIME NEEDED FOR SLEEP 06/24/2019 08/20/2019 Inactive Singulair 10 mg tablet RxNorm: 393036 TAKE ONE TABLET BY MOUTH JOSÉ Y 06/24/2019 10/16/2019 Inactive lisinopril 20 mg tablet RxNorm: 964020 TAKE ONE TABLET BY MOUTH DAILY .... THIS REPLACE 10MG TABLETS 06/24/2019 09/10/2019 Inactive nystatin-triamcinolone 100,000 unit/g-0.1 % topical cream Rx Norm: 3100179 1 Application Topical two times a day 06/12/2019 06/19/2019 Inactive apply BID for 1 week nystatin-triamcinolone 100,000 unit/g-0.1 % topical cream Rx Norm: 4199997 1 Application Topical two times a day 06/12/2019 06/11/2019 Inactive apply BID for 1 week hydrocodone 10 mg-acetaminophen 325 mg tablet RxNorm: 099353 1-2 Tablet(s) PO QID as needed for pain MUST LAST 30 DAYS 05/28/2019 06/26/2019 Inactiv e (Response to an electronic controlled substance refill request - RxReferenceNumber: [id number]) baclofen 20 mg tablet RxNorm: 683330 1 Tablet(s) PO TID as needed for muscle spasm 05/19/2019 05/27/2019 Inactive gabapentin 300 mg capsule RxNorm: 020684 1 Capsule(s) PO QHS 201805/27/2019 Inactive lisinopril 20 mg tablet RxNorm: 593567 1 Tablet(s) PO Q D TAKE ONE TABLET BY MOUTH DAILY, REPLACES 10 MG DOSE 05/19/2019 06/23/2019 Inactive doxepin 25 mg capsule RxNorm: 2533169 TAKE ONE CAPSULE B Y MOUTH EVERY NIGHT AT BEDTIME NEEDED FOR SLEEP 05/16/2019 06/14/2019 Inactive lisinopril 20 mg tablet RxNorm: 019935 TAKE ONE TABLET BY MOUTH DAILY, REPLACES 10 MG DOSE 05/16/2019 05/18/2019 Inactive Singulair 10 mg tablet RxNorm: 165826 TAKE ONE TABLET BY MOUTH JOSÉ Y 05/16/2019 06/14/2019 Inactive gabapentin 300 mg capsule RxNorm: 118466 1 Capsule(s) PO QHS 201805/04/2019 Inactive estropipate 1.5 mg tablet RxNorm: 629647 1 Tablet(s) PO QD 05/05/2005/27/2019 Inactive estropipate 1.5 mg tablet RxNorm: 439514 1 Tablet(s) PO QD 05/05/20 19 05/04/2019 Inactive gabapentin 300 mg capsule RxNorm: 185325 1 Capsule(s) PO QHS 201805/18/2019 Inactive hydrocodone 10 mg-acetaminophen 325 mg tablet RxNorm: 955108 1-2 Tablet(s) PO QID as needed for pain MUST LAST 30 DAYS 04/25/2019 05/24/2019 Inactiv e (Response to an electronic controlled substance refill request - RxReferenceNumber: [id number]) cyclobenzaprine 10 mg tablet RxNorm: 558414 TAKE ONE TA BLET BY MOUTH THREE TIMES A DAY NEEDED FOR MUSCLE SPASMS 04/24/2019 05/18/2019 Inactive metoprolol tartrate 100 mg tablet RxNorm: 144523 TAKE O NE TABLET BY MOUTH TWICE A DAY 04/24/2019 10/16/2019 Inactive Lyrica 75 mg capsule RxNorm: 757718 1 Capsule(s) PO QHS 03/25/2019 Inactive duloxetine 60 mg capsule,delayed release RxNorm: 277610 TAKE ONE CAPSULE BY MOUTH DAILY 03/21/2019 05/19/2019 Inactive triamterene 75 mg-hydrochlorothiazide 50 mg tablet RxNorm: 3 87615 TAKE ONE TABLET BY MOUTH DAILY 03/21/2019 05/19/2019 Inactive Klor-Con 8 mEq tablet,extended release RxNorm: 560212 T FARRUKH ONE TABLET BY MOUTH TWICE A DAY 03/21/2019 09/18/2019 Inactive Lipitor 10 mg tablet RxNorm: 764325 TAKE ONE TABLET BY MOUTH AT BEDTIME 03/21/2019 09/10/2019 Inactive clonidine HCl 0.1 mg tablet RxNorm: 898709 TAKE ONE TAB LET BY MOUTH FOUR TIMES A DAY 03/21/2019 05/19/2019 Inactive allopurinol 300 mg tablet RxNorm: 477126 TAKE ONE TABLET BY LOPEZ TH DAILY 03/21/2019 05/19/2019 Inactive hydrocodone 10 mg-acetaminophen 325 mg tablet RxNorm: 721303 1-2 Tablet(s) PO QID as needed for pain MUST LAST 30 DAYS 02/28/2019 03/29/2019 Inactiv e (Response to an electronic controlled substance refill request [id number]) furosemide 40 mg tablet RxNorm: 617085 TAKE ONE TABLET BY MOUTH EVERY MORNING NEEDED FOR EDEMA . TAKE WITH POTASSIUM 02/21/2019 03/22/2019 Inactive cyclobenzaprine 10 mg tablet RxNorm: 620078 TAKE ONE TA BLET BY MOUTH THREE TIMES A DAY NEEDED FOR MUSCLE SPASMS 02/21/2019 04/21/2019 Inactive lisinopril 20 mg tablet RxNorm: 766341 TAKE ONE TABLET BY MOUTH DAILY, REPLACES 10 MG DOSE 02/21/2019 05/15/2019 Inactive doxepin 25 mg capsule RxNorm: 8166838 TAKE ONE CAPSULE B Y MOUTH EVERY NIGHT AT BEDTIME NEEDED FOR SLEEP 02/21/2019 05/15/2019 Inactive nystatin 100,000 unit/gram topical cream RxNorm: 548995 APPLY TO AFFECTED AREA(S) TWO TIMES A DAY 02/21/2019 03/22/2019 Inactive estradiol 1 mg tablet RxNorm: 827337 2 Tablet(s) PO QD replaces premarin 01/22/2019 05/04/2019 Inactive lisinopril 20 mg tablet RxNorm: 033907 TAKE ONE TABLET BY MOUTH DAILY, REPLACES 10 MG DOSE 01/20/2019 02/18/2019 Inactive cyclobenzaprine 10 mg tablet RxNorm: 101606 TAKE ONE TA BLET BY MOUTH THREE TIMES A DAY NEEDED FOR MUSCLE SPASMS 01/20/2019 02/18/2019 Inactive metoprolol tartrate 100 mg tablet RxNorm: 272857 TAKE O NE TABLET BY MOUTH TWICE A DAY 01/20/2019 02/18/2019 Inactive cyclobenzaprine 10 mg tablet RxNorm: 444247 TAKE ONE TA BLET BY MOUTH THREE TIMES A DAY NEEDED FOR MUSCLE SPASMS 12/19/2018 01/17/2019 Inactive lisinopril 20 mg tablet RxNorm: 456490 TAKE ONE TABLET BY MOUTH DAILY, REPLACES 10 MG DOSE 12/19/2018 01/17/2019 Inactive duloxetine 60 mg capsule,delayed release RxNorm: 086696 TAKE ONE CAPSULE BY MOUTH DAILY 12/19/2018 01/17/2019 Inactive Lipitor 10 mg tablet RxNorm: 464664 TAKE ONE TABLET BY MOUTH AT BEDTIME 12/19/2018 01/17/2019 Inactive cyclobenzaprine 10 mg tablet RxNorm: 566716 1 Tablet(s) PO TID as needed for muscle spasm 11/19/2018 12/18/2018 Inactive Singulair 10 mg tablet RxNorm: 408617 1 Tablet(s) PO QD 11/19/2018 Inactive lisinopril 20 mg tablet RxNorm: 394607 TAKE ONE TABLET BY MOUTH DAILY, REPLACES 10 MG DOSE 11/15/2018 12/18/2018 Inactive hydrocodone 10 mg-acetaminophen 325 mg tablet RxNorm: 403455 1-2 Tablet(s) PO QID as needed for pain MUST LAST 30 DAYS 11/13/2018 12/12/2018 Inactiv e (Response to an electronic controlled substance refill request - RxReferenceNumber: [id number]) nystatin 100,000 unit/gram topical cream RxNorm: 138036 APPLY TO AFFECTED AREA(S) TWO TIMES A DAY 10/23/2018 11/06/2018 Inactive lisinopril 20 mg tablet RxNorm: 189661 1 Tablet(s) PO QD replac es 10mg dose 10/18/2018 11/14/2018 Inactive hydrocodone 10 mg-acetaminophen 325 mg tablet RxNorm: 260685 1-2 Tablet(s) QID as needed for pain MUST LAST 30 DAYS 10/08/2018 11/06/2018 Inactive (Response to an electronic controlled substance refill request - RxReferenceNumber: [id number]) lisinopril 10 mg tablet RxNorm: 606071 1 Tablet(s) PO QD 10/03/2018 0 01/21/2019 Inactive Celebrex 200 mg capsule RxNorm: 094382 TAKE ONE CAPSULE BY MOUT H TWICE A DAY 09/30/2018 05/04/2019 Inactive cyclobenzaprine 10 mg tablet RxNorm: 658806 TAKE ONE TA BLET BY MOUTH THREE TIMES A DAY NEEDED FOR MUSCLE SPASMS 09/30/2018 11/18/2018 Inactive doxepin 25 mg capsule RxNorm: 7844259 TAKE ONE CAPSULE B Y MOUTH EVERY NIGHT AT BEDTIME NEEDED 09/05/2018 10/16/2018 Inactive omeprazole 40 mg capsule,delayed release RxNorm: 174847 TAKE ONE CAPSULE BY MOUTH DAILY 09/05/2018 01/21/2019 Inactive furosemide 40 mg tablet RxNorm: 037222 TAKE ONE TABLET BY MOUTH EVERY MORNING NEEDED FOR EDEMA . TAKE WITH POTASSIUM 09/05/2018 11/03/2018 Inactive phentermine 37.5 mg tablet RxNorm: 795966 1 Tablet(s) PO QAM 201701/21/2019 Inactive doxepin 25 mg capsule RxNorm: 1349348 1 Capsule(s) PO QH S as needed for sleep TAKE ONE CAPSULE BY MOUTH EVERY NIGHT AT BEDTIME NEEDED 08/27/2018 09/04/2018 Inactive Keflex 500 mg capsule RxNorm: 578782 1 Capsule(s) PO TID 08/09/2018 1 10/19/2017 Inactive Diflucan 100 mg tablet RxNorm: 462109 1 Tablet(s) PO QD 08/09/2018 Inactive Premarin 1.25 mg tablet RxNorm: 152116 2 Tablet(s) PO QD 08/09/2018 0 05/04/2019 Inactive Zofran ODT 4 mg disintegrating tablet RxNorm: 447539 1 Tablet(s) PO Q4H as needed for nausea 08/09/2018 01/21/2019 Inactive metoprolol tartrate 100 mg tablet RxNorm: 259764 TAKE O NE TABLET BY MOUTH TWICE A DAY 2018 10/04/2018 Inactive doxepin 25 mg capsule RxNorm: 1362454 TAKE ONE CAPSULE B Y MOUTH EVERY NIGHT AT BEDTIME NEEDED 2018 08/26/2018 Inactive cyclobenzaprine 10 mg tablet RxNorm: 723525 TAKE ONE TA BLET BY MOUTH THREE TIMES A DAY NEEDED FOR MUSCLE SPASMS 2018 09/29/2018 Inactive hydrocodone 10 mg-acetaminophen 325 mg tablet RxNorm: 122507 1-2 Tablet(s) QID as needed for pain MUST LAST 30 DAYS 07/29/2018 08/27/2018 Inactive (Response to an electronic controlled substance refill request - RxReferenceNumber: [id number]) nystatin 100,000 unit/gram topical powder RxNorm: 042500 Applic ation TOP BID 07/22/2018 08/04/2018 Inactive doxepin 25 mg capsule RxNorm: 9435026 1 Capsule(s) PO QHS as needed 07/22/2018 08/05/2018 Inactive triamterene 75 mg-hydrochlorothiazide 50 mg tablet RxNorm: 3 51812 TAKE ONE TABLET BY MOUTH DAILY 07/05/2018 10/02/2018 Inactive duloxetine 60 mg capsule,delayed release RxNorm: 479120 TAKE ONE CAPSULE BY MOUTH DAILY 07/05/2018 09/02/2018 Inactive Klor-Con 8 mEq tablet,extended release RxNorm: 364066 T FARRUKH ONE TABLET BY MOUTH TWICE A DAY 07/05/2018 10/02/2018 Inactive Lipitor 10 mg tablet RxNorm: 441613 TAKE ONE TABLET BY MOUTH AT BEDTIME 07/05/2018 09/02/2018 Inactive allopurinol 300 mg tablet RxNorm: 265981 TAKE ONE TABLET BY LOPEZ TH DAILY 07/05/2018 10/02/2018 Inactive clonidine HCl 0.1 mg tablet RxNorm: 505871 TAKE ONE TAB LET BY MOUTH FOUR TIMES A DAY 07/05/2018 10/02/2018 Inactive hydrocodone 10 mg-acetaminophen 325 mg tablet RxNorm: 460484 1-2 Tablet(s) QID as needed for pain MUST LAST 30 DAYS 06/28/2018 07/27/2018 Inactive (Response to an electronic controlled substance refill request - RxReferenceNumber: [id number]) MediHoney (calcium alginate-honey) 4" X 5" bandage RxNorm: 1 Application TOP QD 06/17/2018 06/26/2018 Inactive honey-hydrocolloid dressing 4" X 5" RxNorm: 1 Application TOP QD 06/17/2018 07/16/2018 Inactive furosemide 40 mg tablet RxNorm: 209835 TAKE ONE TABLET BY MOUTH EVERY MORNING NEEDED FOR EDEMA . TAKE WITH POTASSIUM 06/10/2018 07/09/2018 Inactive This is a refill request. hydrocodone 10 mg-acetaminophen 325 mg tablet RxNorm: 992610 1-2 Tablet(s) QID as needed for pain MUST LAST 30 DAYS 05/30/2018 06/27/2018 Inactive (Response to an electronic controlled substance refill request - RxReferenceNumber: [id number]) acyclovir 800 mg tablet RxNorm: 316869 1 Tablet(s) PO 5x day 201705/22/2018 Inactive Premarin 1.25 mg tablet RxNorm: 004935 1-2 Tablet(s) PO QD 09/01/27 1807/13/2018 Inactive cyclobenzaprine 10 mg tablet RxNorm: 517092 1 Tablet(s) PO TID as needed for muscle spasm 05/09/2018 05/08/2018 Inactive Medrol (Dustin) 4 mg tablets in a dose pack RxNorm: 067953 Tablet(s) PO As Directed 05/02/2018 06/16/2018 Inactive hydrocodone 10 mg-acetaminophen 325 mg tablet RxNorm: 712828 1-2 Tablet(s) QID as needed for pain MUST LAST 30 DAYS 04/30/2018 05/29/2018 Inactive (Response to an electronic controlled substance refill request - RxReferenceNumber: [id number]) duloxetine 60 mg capsule,delayed release RxNorm: 946391 TAKE ONE CAPSULE BY MOUTH DAILY 04/16/2018 05/15/2018 Inactive Celebrex 200 mg capsule RxNorm: 079112 TAKE ONE CAPSULE BY MOUT H TWICE A DAY 04/16/2018 06/14/2018 Inactive Singulair 10 mg tablet RxNorm: 061157 TAKE ONE TABLET BY MOUTH JOSÉ Y 04/16/2018 11/19/2018 Inactive Lipitor 10 mg tablet RxNorm: 242141 TAKE ONE TABLET BY MOUTH AT BEDTIME 04/16/2018 05/15/2018 Inactive hydrocodone 10 mg-acetaminophen 325 mg tablet RxNorm: 163627 1-2 Tablet(s) QID as needed for pain MUST LAST 30 DAYS 03/29/2018 04/27/2018 Inactive (Response to an electronic controlled substance refill request - RxReferenceNumber: [id number]) cyclobenzaprine 10 mg tablet RxNorm: 488190 1 Tablet(s) PO TID as needed for muscle spasm 03/18/2018 05/09/2018 Inactive omeprazole 40 mg capsule,delayed release RxNorm: 522676 1 Capsu le(s) PO QD 02/26/2018 08/24/2018 Inactive hydrocodone 10 mg-acetaminophen 325 mg tablet RxNorm: 032483 1-2 Tablet(s) QID as needed for pain MUST LAST 30 DAYS 02/26/2018 03/27/2018 Inactive (Response to an electronic controlled substance refill request - RxReferenceNumber: [id number]) metoprolol tartrate 100 mg tablet RxNorm: 596578 1 Tablet(s) PO BID 02/18/2018 08/05/2018 Inactive Lyrica 75 mg capsule RxNorm: 218489 1 Capsule(s) PO QHS 01/30/2018 Inactive phentermine 37.5 mg tablet RxNorm: 490740 1 Tablet(s) PO QAM 201706/16/2018 Inactive hydrocodone 10 mg-acetaminophen 325 mg tablet RxNorm: 898352 1-2 Tablet(s) QID as needed for pain MUST LAST 30 DAYS 01/29/2018 02/25/2018 Inactive (Response to an electronic controlled substance refill request - RxReferenceNumber: [id number]) Klor-Con 8 mEq tablet,extended release RxNorm: 970244 1 Tablet( s) PO BID 01/14/2018 07/04/2018 Inactive allopurinol 300 mg tablet RxNorm: 791741 1 Tablet(s) PO QD 01/15/20 18 07/04/2018 Inactive Lipitor 10 mg tablet RxNorm: 076396 1 Tablet(s) PO QHS 01/14/201812/2017 Inactive triamterene 75 mg-hydrochlorothiazide 50 mg tablet RxNorm: 3 30409 1 Tablet(s) PO QD 01/14/2018 07/04/2018 Inactive hydrocodone 10 mg-acetaminophen 325 mg tablet RxNorm: 553342 1-2 Tablet(s) QID as needed for pain MUST LAST 30 DAYS 12/27/2017 01/25/2018 Inactive (Response to an electronic controlled substance refill request - RxReferenceNumber: [id number]) Onglyza 5 mg tablet RxNorm: 626998 1 Tablet(s) PO QD 12/18/201701/29 Inactive metformin 500 mg tablet RxNorm: 467067 1 Tablet(s) PO BID 12/11/2017 12/10/2017 Inactive metformin 500 mg tablet RxNorm: 642184 1 Tablet(s) PO BID 12/11/2017 12/17/2017 Inactive furosemide 40 mg tablet RxNorm: 430975 1 Tablet(s) PO Q AM prn edema--take with potassium 12/11/2017 06/08/2018 Inactive cyclobenzaprine 10 mg tablet RxNorm: 639011 1 Tablet(s) PO TID as needed for muscle spasm 12/11/2017 03/18/2018 Inactive hydrocodone 10 mg-acetaminophen 325 mg tablet RxNorm: 832691 1-2 Tablet(s) QID as needed for pain MUST LAST 30 DAYS 10/23/2017 11/21/2017 Inactive (Response to an electronic controlled substance refill request - RxReferenceNumber: [id number]) Lipitor 10 mg tablet RxNorm: 447047 1 Tablet(s) PO QHS 10/16/201703/2018 Inactive cyclobenzaprine 10 mg tablet RxNorm: 345809 1 Tablet(s) PO TID as needed for muscle spasm 10/09/2017 12/10/2017 Inactive hydroxyzine HCl 25 mg tablet RxNorm: 613218 1 Tablet(s) PO BID as needed for anxiety 09/20/2017 01/29/2018 Inactive Effexor XR 75 mg capsule,extended release RxNorm: 102837 1 Caps ule(s) PO QD 09/20/2017 01/29/2018 Inactive metoprolol tartrate 100 mg tablet RxNorm: 183476 1 Tablet(s) PO BID 08/20/2017 02/18/2018 Inactive baclofen 20 mg tablet RxNorm: 540819 1 Tablet(s) PO TID as needed for muscle spasm 08/20/2017 01/21/2019 Inactive clonidine HCl 0.1 mg tablet RxNorm: 567163 1 Tablet(s) PO QID 08/2005/16/2018 Inactive Seroquel 25 mg tablet RxNorm: 662015 1 Tablet(s) PO QHS 08/17/2017 Inactive Seroquel 25 mg tablet RxNorm: 585399 1 Tablet(s) PO QHS 08/17/2017 Inactive Diflucan 100 mg tablet RxNorm: 620235 TAKE ONE TABLET BY MOUTH JOSÉ Y 07/25/2017 08/07/2017 Inactive hydrocodone 10 mg-acetaminophen 325 mg tablet RxNorm: 814381 1-2 Tablet(s) QID as needed for pain MUST LAST 30 DAYS 07/19/2017 08/17/2017 Inactive (Response to an electronic controlled substance refill request - RxReferenceNumber: [id number]) clindamycin 300 mg capsule RxNorm: 939529 1 Capsule(s) PO TID 07/1907/28/2017 Inactive clotrimazole-betamethasone 1 %-0.05 % topical cream RxNorm: 355258 Application TOP BID to elbow rash 07/19/2017 06/16/2018 Inactive Singulair 10 mg tablet RxNorm: 449665 Tablet(s) TAKE ONE TABLET BY MOUTH DAILY 07/18/2017 04/13/2018 Inactive triamterene 75 mg-hydrochlorothiazide 50 mg tablet RxNorm: 3 29567 1 Tablet(s) PO QD 07/18/2017 01/14/2018 Inactive Celebrex 200 mg capsule RxNorm: 485647 Capsule(s) TAKE ONE CAPSULE BY MOUTH TWICE A DAY 07/18/2017 10/15/2017 Inactive hydrocodone 10 mg-acetaminophen 325 mg tablet RxNorm: 123361 1-2 Tablet(s) QID as needed for pain MUST LAST 30 DAYS 06/19/2017 07/18/2017 Inactive (Response to an electronic controlled substance refill request - RxReferenceNumber: [id number]) hydrocodone 10 mg-acetaminophen 325 mg tablet RxNorm: 415468 1-2 Tablet(s) QID as needed for pain MUST LAST 30 DAYS 06/19/2017 06/18/2017 Inactive (Response to an electronic controlled substance refill request - RxReferenceNumber: [id number]) baclofen 20 mg tablet RxNorm: 925135 1 Tablet(s) PO TID as needed for muscle spasm 06/18/2017 08/20/2017 Inactive Medrol (Dustin) 4 mg tablets in a dose pack RxNorm: 815612 Tablet(s) PO As Directed 06/05/2017 07/18/2017 Inactive omeprazole 40 mg capsule,delayed release RxNorm: 869472 1 Capsu le(s) PO QD 04/20/2017 10/16/2017 Inactive Premarin 1.25 mg tablet RxNorm: 564756 1-2 Tablet(s) PO QD 04/11/20 17 05/15/2018 Inactive duloxetine 60 mg capsule,delayed release RxNorm: 797586 1 Capsu le(s) PO QD 04/11/2017 09/19/2017 Inactive furosemide 40 mg tablet RxNorm: 396750 1 Tablet(s) PO Q AM prn edema--take with potassium 04/11/2017 12/11/2017 Inactive Klor-Con 8 mEq tablet,extended release RxNorm: 820064 1 Tablet( s) PO BID 04/11/2017 01/14/2018 Inactive Lipitor 10 mg tablet RxNorm: 391413 1 Tablet(s) PO QHS 04/11/201702/2018 Inactive amlodipine 5 mg-benazepril 20 mg capsule RxNorm: 617495 1 Capsu le(s) PO QD 04/11/2017 01/29/2018 Inactive allopurinol 300 mg tablet RxNorm: 624901 1 Tablet(s) PO QD 04/11/20 17 01/14/2018 Inactive clonidine HCl 0.1 mg tablet RxNorm: 411053 1 Tablet(s) PO QID 04/0508/19/2017 Inactive baclofen 20 mg tablet RxNorm: 137527 1 Tablet(s) PO TID as needed for muscle spasm 04/02/2017 06/18/2017 Inactive Premarin 1.25 mg tablet RxNorm: 619395 1-2 Tablet(s) PO QD 03/20/20 17 04/10/2017 Inactive hydrocodone 10 mg-acetaminophen 325 mg tablet RxNorm: 019904 1-2 Tablet(s) QID as needed for pain MUST LAST 30 DAYS 03/14/2017 01/21/2019 Inactive (Response to an electronic controlled substance refill request - RxReferenceNumber: [id number]) metoprolol tartrate 100 mg tablet RxNorm: 996770 1 Tablet(s) PO BID 02/12/2017 08/20/2017 Inactive hydrocodone 10 mg-acetaminophen 325 mg tablet RxNorm: 767745 1-2 Tablet(s) QID as needed for pain MUST LAST 30 DAYS 02/08/2017 03/09/2017 Inactive (Response to an electronic controlled substance refill request - RxReferenceNumber: [id number]) metoprolol tartrate 100 mg tablet RxNorm: 774012 TAKE O NE TABLET BY MOUTH TWICE A DAY 01/11/2017 02/12/2017 Inactive metoprolol tartrate 100 mg tablet RxNorm: 152117 1 Tablet(s) PO BID 12/18/2016 12/17/2016 Inactive metoprolol tartrate 100 mg tablet RxNorm: 185899 1 Tablet(s) PO BID 12/18/2016 01/10/2017 Inactive furosemide 40 mg tablet RxNorm: 683638 1 Tablet(s) PO Q AM prn edema--take with potassium 12/13/2016 02/10/2017 Inactive amitriptyline 100 mg tablet RxNorm: 670718 1 Tablet(s) PO QHS 11/2812/12/2016 Inactive baclofen 20 mg tablet RxNorm: 672548 1 Tablet(s) PO TID as needed for muscle spasm 11/14/2016 04/01/2017 Inactive triamterene 75 mg-hydrochlorothiazide 50 mg tablet RxNorm: 3 03994 1 Tablet(s) PO QD 11/14/2016 11/13/2016 Inactive metolazone 2.5 mg tablet RxNorm: 682616 TAKE ONE TABLET BY MOUTH DAILY NEEDED FOR EDEMA 11/14/2016 12/12/2016 Inactive triamterene 75 mg-hydrochlorothiazide 50 mg tablet RxNorm: 3 44750 1 Tablet(s) PO QD 11/14/2016 07/18/2017 Inactive amitriptyline 50 mg tablet RxNorm: 027218 TAKE ONE TABL ET BY MOUTH AT BEDTIME NEEDED FOR SLEEP 11/14/2016 11/27/2016 Inactive Cymbalta 60 mg capsule,delayed release RxNorm: 815205 1 Capsule (s) PO QHS 11/14/2016 12/12/2016 Inactive clonidine HCl 0.1 mg tablet RxNorm: 018791 1 Tablet(s) PO QID 11/1304/04/2017 Inactive amitriptyline 50 mg tablet RxNorm: 139266 1 Tablet(s) P O QHS as needed for sleep 11/01/2016 11/27/2016 Inactive duloxetine 60 mg capsule,delayed release RxNorm: 557208 TAKE ONE CAPSULE BY MOUTH DAILY 10/20/2016 01/17/2017 Inactive allopurinol 300 mg tablet RxNorm: 286163 TAKE ONE TABLET BY LOPEZ TH DAILY 10/20/2016 01/16/2017 Inactive Lyrica 75 mg capsule RxNorm: 444472 TAKE ONE CAPSULE BY MOUTH EVERY NIGHT AT BEDTIME 10/20/2016 12/10/2016 Inactive Klor-Con 8 mEq tablet,extended release RxNorm: 812944 T FARRUKH ONE TABLET BY MOUTH TWICE A DAY 10/20/2016 01/17/2017 Inactive Celebrex 200 mg capsule RxNorm: 396324 TAKE ONE CAPSULE BY MOUT H TWICE A DAY 10/20/2016 07/18/2017 Inactive Bystolic 10 mg tablet RxNorm: 589374 TAKE ONE TABLET BY MOUTH EVERY NIGHT AT BEDTIME 10/20/2016 12/17/2016 Inactive amlodipine 5 mg-benazepril 20 mg capsule RxNorm: 219422 TAKE ONE CAPSULE BY MOUTH EVERY NIGHT AT BEDTIME -- TO REPLACE AMLODOPINE 10/20/20162016 Inactive Lipitor 10 mg tablet RxNorm: 527878 TAKE ONE TABLET BY MOUTH EVERY NIGHT AT BEDTIME 10/20/2016 01/17/2017 Inactive alprazolam 0.5 mg tablet RxNorm: 889553 3 Tablet(s) PO QHS as needed for sleep/anxiety 09/20/2016 10/31/2016 Inactive Tamiflu 75 mg capsule RxNorm: 455170 1 Capsule(s) PO QD 09/19/2016 Inactive Lyrica 75 mg capsule RxNorm: 738746 1 Capsule(s) PO QHS 09/19/2016 Inactive prednisone 20 mg tablet RxNorm: 759763 1 Tablet(s) PO QD 08/10/2016 1 10/17/2015 Inactive doxycycline hyclate 100 mg capsule RxNorm: 7632719 1 Capsule(s) PO BID 08/10/2016 08/19/2016 Inactive Medrol (Dustin) 4 mg tablets in a dose pack RxNorm: 765554 Tablet(s) PO As Directed 07/31/2016 08/22/2016 Inactive Singulair 10 mg tablet RxNorm: 123311 TAKE ONE TABLET BY MOUTH JOSÉ Y 07/27/2016 07/18/2017 Inactive hydrocodone 10 mg-acetaminophen 325 mg tablet RxNorm: 737646 1-2 Tablet(s) QID as needed for pain MUST LAST 30 DAYS 07/26/2016 08/24/2016 Inactive (Response to an electronic controlled substance refill request - RxReferenceNumber: [id number]) alprazolam 0.5 mg tablet RxNorm: 443911 3 Tablet(s) PO QHS as needed for anxiety or sleep 07/26/2016 09/20/2016 Inactive clindamycin 300 mg capsule RxNorm: 452613 1 Capsule(s) PO TID 07/2007/29/2016 Inactive Diflucan 100 mg tablet RxNorm: 887417 1 Tablet(s) PO QD 07/20/2016 Inactive Levaquin 500 mg tablet RxNorm: 466153 1 Tablet(s) PO QD 07/17/2016 Inactive Levaquin 500 mg tablet RxNorm: 981115 1 Tablet(s) PO QD 07/10/2016 Inactive Levaquin 500 mg tablet RxNorm: 693280 1 Tablet(s) PO QD 07/10/2016 Inactive mupirocin 2 % topical ointment RxNorm: 270498 TOP Apply topically to affected areas twice daily 07/06/2016 09/18/2016 Inactive Singulair 10 mg tablet RxNorm: 806063 TAKE ONE TABLET BY MOUTH JOSÉ Y 06/21/2016 01/21/2019 Inactive alprazolam 0.5 mg tablet RxNorm: 824642 TAKE THREE TABL ETS BY MOUTH AT BEDTIME NEEDED FOR SLEEP OR STRESS 05/22/2016 06/20/2016 Inactive triamterene 75 mg-hydrochlorothiazide 50 mg tablet RxNorm: 3 11492 1 Tablet(s) PO QD 04/26/2016 10/21/2016 Inactive Premarin 1.25 mg tablet RxNorm: 841746 1-2 Tablet(s) PO QD 04/26/20 16 03/20/2017 Inactive Klor-Con 8 mEq tablet,extended release RxNorm: 390366 1 Tablet( s) PO BID 04/26/2016 10/19/2016 Inactive Celebrex 200 mg capsule RxNorm: 561911 1 Capsule(s) PO BID TAKE ONE CAPSULE BY MOUTH EVERY DAY 04/26/2016 10/19/2016 Inactive Lipitor 10 mg tablet RxNorm: 290158 1 Tablet(s) PO QHS 04/26/201605/2017 Inactive allopurinol 300 mg tablet RxNorm: 270314 1 Tablet(s) PO QD TAKE ONE TABLET BY MOUTH EVERY DAY 04/26/2016 10/19/2016 Inactive amlodipine 5 mg-benazepril 20 mg capsule RxNorm: 144844 1 Capsule(s) PO QHS replaces amlodopine 04/26/2016 10/19/2016 Inactive duloxetine 60 mg capsule,delayed release RxNorm: 462597 1 Capsu le(s) PO QD 04/26/2016 10/19/2016 Inactive Bystolic 10 mg tablet RxNorm: 845565 1 Tablet(s) PO QHS 04/26/2016 Inactive Singulair 10 mg tablet RxNorm: 701593 1 Tablet(s) PO QD TAKE ONE TABLET BY MOUTH DAILY 04/26/2016 06/20/2016 Inactive clonidine HCl 0.1 mg tablet RxNorm: 514471 1 Tablet(s) PO QID 04/2610/22/2016 Inactive hydrocodone 10 mg-acetaminophen 325 mg tablet RxNorm: 599488 1-2 Tablet(s) QID as needed for pain TAKE ONE TO TWO TABLETS BY MOUTH FOUR TIMES A DAY . MUST LAST 30 DAYS 03/31/2016 04/29/2016 Inactive (Response to an electronic controlled substance refill request - RxReferenceNumber: [id number]) Klor-Con 8 mEq tablet,extended release RxNorm: 967544 T FARRUKH ONE TABLET BY MOUTH TWICE A DAY 03/24/2016 09/29/2019 Inactive prednisone 20 mg tablet RxNorm: 317950 1 Tablet(s) PO QD 03/09/2016 0 03/08/2016 Inactive prednisone 20 mg tablet RxNorm: 083006 1 Tablet(s) PO QD 03/09/2016 0 03/13/2016 Inactive alprazolam 0.5 mg tablet RxNorm: 924940 3 Tablet(s) PO QHS as needed for sleep/stress 03/02/2016 01/21/2019 Inactive mupirocin 2 % topical ointment RxNorm: 322526 TOP twice daily to affected areas of face and neck 02/21/2016 04/25/2016 Inactive clonidine HCl 0.1 mg tablet RxNorm: 097616 TAKE ONE TAB LET BY MOUTH FOUR TIMES A DAY 02/15/2016 09/29/2019 Inactive clonidine HCl 0.1 mg tablet RxNorm: 702943 1 Tablet(s) PO QID 02/1404/25/2016 Inactive Premarin 1.25 mg tablet RxNorm: 253391 1-2 Tablet(s) PO QD 02/15/20 16 03/15/2016 Inactive Klor-Con 8 mEq tablet,extended release RxNorm: 913320 T FARRUKH ONE TABLET BY MOUTH TWICE A DAY 02/15/2016 03/15/2016 Inactive potassium chloride ER 20 mEq tablet,extended release(part/cr yst) RxNorm: 837087 2 Tablet(s) PO BID 02/15/2016 03/15/2016 Inactive Macrobid 100 mg capsule RxNorm: 144607 1 Capsule(s) PO BID 01/24/20 16 01/30/2016 Inactive prednisone 20 mg tablet RxNorm: 879107 Take 3tabs PO QD x 2 days, then 2 tabs PO QD x 2 days, then 1 tab PO QD x 2 days, then 1/2 tab PO QDy x 2 days 12/23/2015 04/25/2016 Inactive Klor-Con 8 mEq tablet,extended release RxNorm: 694211 T FARRUKH ONE TABLET BY MOUTH TWICE A DAY 12/20/2015 02/14/2016 Inactive alprazolam 1 mg tablet RxNorm: 774457 1 1/2 Tablet(s) PO QHS 201501/23/2016 Inactive nystatin 100,000 unit/gram topical cream RxNorm: 202754 APPLY TO AFFECTED AREA(S) TWO TIMES A DAY 11/30/2015 12/14/2015 Inactive Singulair 10 mg tablet RxNorm: 868089 TAKE ONE TABLET BY MOUTH JOSÉ Y 11/18/2015 04/25/2016 Inactive allopurinol 300 mg tablet RxNorm: 920457 1 Tablet(s) PO QD TAKE ONE TABLET BY MOUTH EVERY DAY 10/26/2015 04/22/2016 Inactive Singulair 10 mg tablet RxNorm: 076423 TAKE ONE TABLET BY MOUTH JOSÉ Y 10/26/2015 11/17/2015 Inactive duloxetine 60 mg capsule,delayed release RxNorm: 014313 1 Capsu le(s) PO QD 10/26/2015 04/22/2016 Inactive triamterene 75 mg-hydrochlorothiazide 50 mg tablet RxNorm: 3 28997 1 Tablet(s) PO QD 10/26/2015 11/14/2016 Inactive potassium chloride ER 20 mEq tablet,extended release(part/cr yst) RxNorm: 199877 2 Tablet(s) PO BID 10/26/2015 02/14/2016 Inactive Lipitor 10 mg tablet RxNorm: 013875 1 Tablet(s) PO QHS 10/26/2015 Inactive amlodipine 5 mg-benazepril 20 mg capsule RxNorm: 188660 1 Capsule(s) PO QHS replaces amlodopine 10/26/2015 04/22/2016 Inactive Bystolic 10 mg tablet RxNorm: 323963 1 Tablet(s) PO QHS 10/26/2015 Inactive amlodipine 5 mg-benazepril 20 mg capsule RxNorm: 291610 1 Capsule(s) PO QHS replaces amlodopine 10/06/2015 10/25/2015 Inactive amlodipine 5 mg tablet RxNorm: 846436 1 Tablet(s) PO QHS 09/30/2015 0 04/25/2016 Inactive metolazone 2.5 mg tablet RxNorm: 884142 TAKE ONE TABLET BY MOUTH DAILY NEEDED FOR EDEMA 09/30/2015 01/21/2019 Inactive duloxetine 60 mg capsule,delayed release RxNorm: 069336 1 Capsu le(s) PO QD 09/30/2015 10/25/2015 Inactive cephalexin 500 mg capsule RxNorm: 074039 1 Capsule(s) PO BID 201509/23/2015 Inactive mupirocin 2 % topical ointment RxNorm: 793488 TOP twice daily to affected areas of face and neck 09/14/2015 02/20/2016 Inactive baclofen 20 mg tablet RxNorm: 949403 1 Tablet(s) PO TID as needed for muscle spasm 09/01/2015 11/14/2016 Inactive clonidine HCl 0.1 mg tablet RxNorm: 809560 1 Tablet(s) PO QID 09/0102/14/2016 Inactive alprazolam 1 mg tablet RxNorm: 676568 1 1/2 Tablet(s) PO QHS 201409/09/2015 Inactive baclofen 20 mg tablet RxNorm: 654370 1 Tablet(s) PO TID as needed for muscle spasm 07/23/2015 09/01/2015 Inactive omeprazole 40 mg capsule,delayed release RxNorm: 015340 1 Capsu le(s) PO QD 07/23/2015 04/25/2016 Inactive alprazolam 1 mg tablet RxNorm: 184782 1 1/2 Tablet(s) PO QHS 201408/10/2015 Inactive Bystolic 10 mg tablet RxNorm: 659497 1 Tablet(s) PO BID 06/24/2015 Inactive allopurinol 300 mg tablet RxNorm: 536632 1 Tablet(s) PO QD TAKE ONE TABLET BY MOUTH EVERY DAY 06/23/2015 10/20/2015 Inactive alprazolam 1 mg tablet RxNorm: 572412 1 1/2 Tablet(s) PO QHS 201407/06/2015 Inactive clonidine HCl 0.1 mg tablet RxNorm: 699604 1 Tablet(s) PO QID 06/0209/01/2015 Inactive clonidine HCl 0.1 mg tablet RxNorm: 791808 1 Tablet(s) PO QID 06/0206/01/2015 Inactive Cymbalta 60 mg capsule,delayed release RxNorm: 364746 1 Capsule (s) PO QHS 06/02/2015 08/30/2015 Inactive Cymbalta 60 mg capsule,delayed release RxNorm: 570929 1 Capsule (s) PO QHS 06/02/2015 06/01/2015 Inactive clonidine HCl 0.1 mg tablet RxNorm: 092531 1 Tablet(s) PO TID 05/3106/01/2015 Inactive replaces 0.2mg dose metolazone 2.5 mg tablet RxNorm: 262036 TAKE ONE TABLET BY MOUTH DAILY NEEDED FOR EDEMA 05/21/2015 06/19/2015 Inactive Singulair 10 mg tablet RxNorm: 190919 TAKE ONE TABLET BY MOUTH JOSÉ Y 05/21/2015 10/17/2015 Inactive Cymbalta 30 mg capsule,delayed release RxNorm: 012278 1 Capsule (s) PO QHS 05/20/2015 11/14/2016 Inactive betamethasone valerate 0.1 % topical cream RxNorm: 242571 Appli cation TOP BID 05/10/2015 04/25/2016 Inactive Bactroban 2 % topical ointment RxNorm: 756229 Application TOP BID 0 05/10/2015 06/20/2015 Inactive baclofen 20 mg tablet RxNorm: 213592 1 Tablet(s) PO TID as needed 0 04/26/2015 07/23/2015 Inactive Lipitor 10 mg tablet RxNorm: 959139 1 Tablet(s) PO QHS 04/26/201508/2016 Inactive clonidine HCl 0.1 mg tablet RxNorm: 040110 1 Tablet(s) PO TID 04/2605/30/2015 Inactive replaces 0.2mg dose Klor-Con 8 mEq tablet,extended release RxNorm: 170323 1 Tablet( s) PO BID 04/26/2015 04/25/2016 Inactive metolazone 2.5 mg tablet RxNorm: 638828 1 Tablet(s) PO QD as ne eded for edema 04/26/2015 04/25/2015 Inactive triamterene 75 mg-hydrochlorothiazide 50 mg tablet RxNorm: 3 64281 1 Tablet(s) PO QD 04/26/2015 10/22/2015 Inactive Premarin 1.25 mg tablet RxNorm: 415211 1-2 Tablet(s) PO QD 04/26/20 15 10/22/2015 Inactive Bystolic 10 mg tablet RxNorm: 069724 1 Tablet(s) PO QAM TAKE ONE TABLET BY MOUTH EVERY MORNING 04/23/2015 06/23/2015 Inactive clonidine HCl 0.1 mg tablet RxNorm: 067554 1 Tablet(s) PO TID 03/2304/25/2015 Inactive replaces 0.2mg dose nystatin 100,000 unit/gram topical cream RxNorm: 894275 Applica tion TOP BID 03/23/2015 06/20/2015 Inactive baclofen 20 mg tablet RxNorm: 277150 1 Tablet(s) PO TID as needed 0 03/23/2015 04/25/2015 Inactive Premarin 1.25 mg tablet RxNorm: 048434 1-2 Tablet(s) PO QD 03/23/20 15 04/25/2015 Inactive Klor-Con 8 mEq tablet,extended release RxNorm: 325548 1 Tablet( s) PO BID 03/23/2015 04/25/2015 Inactive cefdinir 300 mg capsule RxNorm: 879297 2 Capsule(s) PO QD 03/16/2015 03/25/2015 Inactive baclofen 20 mg tablet RxNorm: 070328 1 Tablet(s) PO TID as needed 0 03/02/2015 03/22/2015 Inactive allopurinol 300 mg tablet RxNorm: 687231 1 Tablet(s) PO QD TAKE ONE TABLET BY MOUTH EVERY DAY 02/22/2015 05/22/2015 Inactive Klor-Con M20 mEq tablet,extended release RxNorm: 295175 2 Tablet(s) PO BID to use with lasix 02/22/2015 06/20/2015 Inactive clonidine HCl 0.1 mg tablet RxNorm: 256329 1 Tablet(s) PO TID 02/1903/22/2015 Inactive replaces 0.2mg dose Lipitor 10 mg tablet RxNorm: 551588 1 Tablet(s) PO QHS 01/20/201506/2015 Inactive Lipitor 10 mg tablet RxNorm: 905081 1 Tablet(s) PO QHS 01/20/2015 Inactive Singulair 10 mg tablet RxNorm: 351042 1 Tablet(s) PO QD TAKE ONE TABLET BY MOUTH EVERY DAY 11/20/2014 05/18/2015 Inactive Lipitor 10 mg tablet RxNorm: 319334 1 Tablet(s) PO QHS 11/20/201408/2015 Inactive allopurinol 300 mg tablet RxNorm: 123147 1 Tablet(s) PO QD TAKE ONE TABLET BY MOUTH EVERY DAY 11/20/2014 02/16/2015 Inactive Bystolic 10 mg tablet RxNorm: 328287 1 Tablet(s) PO QAM TAKE ONE TABLET BY MOUTH EVERY MORNING 11/20/2014 04/22/2015 Inactive Klor-Con 8 mEq tablet,extended release RxNorm: 802102 1 Tablet( s) PO BID 11/20/2014 02/17/2015 Inactive baclofen 20 mg tablet RxNorm: 684562 1 Tablet(s) PO TID as needed 0 11/20/2014 01/21/2019 Inactive baclofen 20 mg tablet RxNorm: 749551 1 Tablet(s) PO TID as needed 0 10/27/2014 11/19/2014 Inactive baclofen 20 mg tablet RxNorm: 204558 1 Tablet(s) PO TID as needed 0 10/26/2014 03/01/2015 Inactive allopurinol 300 mg tablet RxNorm: 018480 1 Tablet(s) PO QD TAKE ONE TABLET BY MOUTH EVERY DAY 10/26/2014 11/20/2014 Inactive Bystolic 10 mg tablet RxNorm: 352291 1 Tablet(s) PO QAM TAKE ONE TABLET BY MOUTH EVERY MORNING 10/26/2014 11/20/2014 Inactive clonidine HCl 0.1 mg tablet RxNorm: 220965 1 Tablet(s) PO TID 09/2805/27/2019 Inactive replaces 0.2mg dose clonidine HCl 0.1 mg tablet RxNorm: 590542 1 Tablet(s) PO TID 09/2802/18/2015 Inactive replaces 0.2mg dose baclofen 20 mg tablet RxNorm: 476382 1 Tablet(s) PO TID as needed 1 11/01/2013 08/30/2014 Inactive Lipitor 10 mg tablet RxNorm: 314613 1 Tablet(s) PO QHS 08/31/2014 Inactive baclofen 20 mg tablet RxNorm: 847585 1 Tablet(s) PO TID as needed 1 11/01/2013 10/26/2014 Inactive triamterene 75 mg-hydrochlorothiazide 50 mg tablet RxNorm: 3 41733 1 Tablet(s) PO QD 08/31/2014 02/26/2015 Inactive Klor-Con 8 mEq tablet,extended release RxNorm: 187476 1 Tablet( s) PO BID 08/31/2014 11/20/2014 Inactive baclofen 20 mg tablet RxNorm: 517224 1 Tablet(s) PO TID as needed 1 09/30/2013 10/25/2014 Inactive baclofen 20 mg tablet RxNorm: 892349 1 Tablet(s) PO TID as needed 1 09/30/2013 08/31/2014 Inactive omeprazole 40 mg capsule,delayed release RxNorm: 721458 1 Capsu le(s) PO QD 07/21/2014 07/23/2015 Inactive Flonase 50 mcg/actuation nasal spray,suspension RxNorm: 8963 23 1 Russell NASAL BID 07/15/2014 04/09/2017 Inactive hydrocodone 10 mg-acetaminophen 325 mg tablet RxNorm: 125686 1-2 Tablet(s) QID as needed for pain TAKE ONE TO TWO TABLETS BY MOUTH FOUR TIMES A DAY . MUST LAST 30 DAYS 06/30/2014 07/27/2014 Inactive (Response to an electronic controlled substance refill request - RxReferenceNumber: [id number]) baclofen 20 mg tablet RxNorm: 231001 1 Tablet(s) PO TID as needed 1 07/31/2014 Inactive Singulair 10 mg tablet RxNorm: 064363 1 Tablet(s) PO QD TAKE ONE TABLET BY MOUTH EVERY DAY 05/25/2014 11/20/2014 Inactive Bystolic 10 mg tablet RxNorm: 341601 TAKE ONE TABLET BY MOUTH E VERY MORNING 05/25/2014 09/21/2014 Inactive allopurinol 300 mg tablet RxNorm: 366359 1 Tablet(s) PO QD TAKE ONE TABLET BY MOUTH EVERY DAY 05/25/2014 10/21/2014 Inactive baclofen 20 mg tablet RxNorm: 431045 1 Tablet(s) PO TID as needed 0 05/25/2014 06/29/2014 Inactive allopurinol 300 mg tablet RxNorm: 366994 TAKE ONE TABLET BY LOPEZ TH EVERY DAY 05/25/2014 09/21/2014 Inactive Singulair 10 mg tablet RxNorm: 220328 1 Tablet(s) PO QD TAKE ONE TABLET BY MOUTH EVERY DAY 05/25/2014 05/24/2014 Inactive Bystolic 10 mg tablet RxNorm: 395839 1 Tablet(s) PO QAM TAKE ONE TABLET BY MOUTH EVERY MORNING 05/25/2014 10/21/2014 Inactive metolazone 2.5 mg tablet RxNorm: 019739 1 Tablet(s) PO QD as ne eded for edema 05/18/2014 04/25/2015 Inactive Lasix 40 mg tablet RxNorm: 480925 1 Tablet(s) PO QAM s hould take potassium supplementation with this medication 05/14/2014 05/17/2014 Inactive hydrocodone 10 mg-acetaminophen 325 mg tablet RxNorm: 751528 1-2 Tablet(s) QID as needed for pain TAKE ONE TO TWO TABLETS BY MOUTH FOUR TIMES A DAY . MUST LAST 30 DAYS 05/07/2014 06/05/2014 Inactive (Response to an electronic controlled substance refill request - RxReferenceNumber: [id number]) alprazolam 0.5 mg tablet RxNorm: 777259 TAKE ONE TABLET BY MOUTH TWICE A DAY , MUST LAST 30 DAYS 05/07/2014 05/22/2016 Inactive (Response to a n electronic controlled substance refill request - RxReferenceNumber: [id number]) diclofenac sodium 75 mg tablet,delayed release RxNorm: 47665 6 1 Tablet(s) PO BID for pain 04/24/2014 07/20/2014 Inactive Celebrex 200 mg capsule RxNorm: 665217 TAKE ONE CAPSULE BY MOUT H EVERY DAY 04/24/2014 07/20/2014 Inactive alprazolam 0.5 mg tablet RxNorm: 428780 TAKE ONE TABLET BY MOUTH TWICE A DAY , MUST LAST 30 DAYS 03/24/2014 04/22/2014 Inactive (Response to a n electronic controlled substance refill request - RxReferenceNumber: [id number]) diclofenac sodium 75 mg tablet,delayed release RxNorm: 24582 6 1 Tablet(s) PO BID for pain 03/24/2014 04/24/2014 Inactive clonidine HCl 0.1 mg tablet RxNorm: 303481 1 Tablet(s) PO TID 03/2409/28/2014 Inactive replaces 0.2mg dose Klor-Con 8 mEq tablet,extended release RxNorm: 261908 1 Tablet( s) PO BID 02/26/2014 08/31/2014 Inactive diclofenac sodium 75 mg tablet,delayed release RxNorm: 64808 6 1 Tablet(s) PO BID for pain 02/25/2014 03/24/2014 Inactive hydrocodone 10 mg-acetaminophen 325 mg tablet RxNorm: 583974 1-2 Tablet(s) QID as needed for pain TAKE ONE TO TWO TABLETS BY MOUTH FOUR TIMES A DAY . MUST LAST 30 DAYS 02/25/2014 03/26/2014 Inactive (Response to an electronic controlled substance refill request - RxReferenceNumber: [id number]) alprazolam 0.5 mg tablet RxNorm: 472787 Tablet(s) PO BI D as needed for anxiety TAKE ONE TABLET BY MOUTH TWICE A DAY , MUST LAST 30 DAYS 02/25/2014 Inactive (Response to an electronic controlled [place] bstance refill request - RxReferenceNumber: [id number]) [AttnRPh: Saving apply/adjudicate RxGRP:SG20 RxBIN:[id number] RxPCN: ID#:[id number]] alprazolam 0.5 mg tablet RxNorm: 068853 Tablet(s) TAKE ONE TABLET BY MOUTH TWICE A DAY , MUST LAST 30 DAYS 01/27/2014 02/24/2014 Inactive (Respo nse to an electronic controlled substance refill request - RxReferenceNumber: [id number]) [AttnRPh: Saving apply/adjudicate RxGRP:SG20 RxBIN:[id number] RxPCN: ID#:[id number]] hydrocodone 10 mg-acetaminophen 325 mg tablet RxNorm: 282697 1-2 Tablet(s) QID as needed for pain TAKE ONE TO TWO TABLETS BY MOUTH FOUR TIMES A DAY . MUST LAST 30 DAYS 01/27/2014 02/24/2014 Inactive (Response to an electronic controlled substance refill request - RxReferenceNumber: [id number]) alprazolam 0.5 mg tablet RxNorm: 650983 TAKE ONE TABLET BY MOUTH TWICE A DAY , MUST LAST 30 DAYS 01/27/2014 01/26/2014 Inactive (Response to a n electronic controlled substance refill request - RxReferenceNumber: [id number]) Premarin 1.25 mg tablet RxNorm: 505989 1-2 Tablet(s) PO QD 01/28/20 14 07/25/2014 Inactive alprazolam 0.5 mg tablet RxNorm: 826474 TAKE ONE TABLET BY MOUTH TWICE A DAY , MUST LAST 30 DAYS 01/27/2014 01/27/2014 Inactive (Response to a n electronic controlled substance refill request - RxReferenceNumber: [id number]) hydrocodone 10 mg-acetaminophen 325 mg tablet RxNorm: 309644 TAKE ONE TO TWO TABLETS BY MOUTH FOUR TIMES A DAY . MUST LAST 30 DAYS 01/27/20142013 Inactive (Response to an electronic controlled [place] bstance refill request - RxReferenceNumber: [id number]) Celebrex 200 mg capsule RxNorm: 579804 1 Capsule(s) PO QD TAKE ONE CAPSULE BY MOUTH EVERY DAY 12/29/2013 04/27/2014 Inactive hydrocodone 10 mg-acetaminophen 325 mg tablet RxNorm: 352085 1-2 Tablet(s) PO QID as needed for severe pain 12/29/2013 01/27/2014 Inactive allopurinol 300 mg tablet RxNorm: 518792 1 Tablet(s) PO QD TAKE ONE TABLET BY MOUTH EVERY DAY 12/29/2013 05/24/2014 Inactive alprazolam 0.5 mg tablet RxNorm: 248139 TAKE ONE TABLET BY MOUTH TWICE A DAY , MUST LAST 30 DAYS 12/29/2013 01/27/2014 Inactive (Response to a n electronic controlled substance refill request - RxReferenceNumber: [id number]) Celebrex 200 mg capsule RxNorm: 452680 1 Capsule(s) PO QD TAKE ONE CAPSULE BY MOUTH EVERY DAY 12/29/2013 12/29/2013 Inactive Bystolic 10 mg tablet RxNorm: 928367 1 Tablet(s) PO QAM TAKE ONE TABLET BY MOUTH EVERY MORNING 12/29/2013 05/24/2014 Inactive Bystolic 10 mg tablet RxNorm: 304773 1 Tablet(s) PO QAM TAKE ONE TABLET BY MOUTH EVERY MORNING 12/29/2013 12/29/2013 Inactive Singulair 10 mg tablet RxNorm: 283109 1 Tablet(s) PO QD TAKE ONE TABLET BY MOUTH EVERY DAY 12/29/2013 05/25/2014 Inactive hydrocodone 10 mg-acetaminophen 325 mg tablet RxNorm: 337977 TAKE ONE TO TWO TABLETS BY MOUTH FOUR TIMES A DAY . MUST LAST 30 DAYS 12/29/20132013 Inactive (Response to an electronic controlled [place] bstance refill request - RxReferenceNumber: [id number]) Trazadone 75mg Tablet RxNorm: 1 Tablet(s) PO QHS as needed 03/23/2014 Inactive Trazadone 75mg Tablet RxNorm: 1 Tablet(s) PO QHS 12/24/20132014 Inactive Soma 350 mg tablet RxNorm: 814102 Tablet(s) PO TAKE ON E TABLET BY MOUTH THREE TIMES A DAY NEEDED FOR MUSCLE SPASMS. THIS MUST LAST 30 DAYS BETWEEN REFILLS. 12/10/2013 12/22/2013 Inactive (Appended: Cont rolled substance eRx refill - RxReferenceNumber: [id number]) diclofenac sodium 75 mg tablet,delayed release RxNorm: 95765 6 1 Tablet(s) PO BID for pain 12/10/2013 02/24/2014 Inactive allopurinol 300 mg tablet RxNorm: 418671 1 Tablet(s) PO QD 11/20/19 14 12/29/2013 Inactive alprazolam 0.5 mg tablet RxNorm: 875559 2 Tablet(s) PO BID 11/13/19 14 12/29/2013 Inactive prn clonidine 0.1 mg tablet RxNorm: 287333 1 Tablet(s) PO TID 11/12/2013 02/09/2014 Inactive replaces 0.2mg dose Klor-Con M20 mEq tablet,extended release RxNorm: 502227 2 Tablet(s) PO BID to use with lasix 11/12/2013 05/10/2014 Inactive Singulair 10 mg tablet RxNorm: 859838 1 Tablet(s) PO QD 11/12/2013 Inactive hydrocodone 10 mg-acetaminophen 325 mg tablet RxNorm: 448418 1-2 Tablet(s) PO QID as needed for severe pain 11/12/2013 12/28/2013 Inactive Bystolic 10 mg tablet RxNorm: 810690 1 Tablet(s) PO QAM 11/12/2013 Inactive Soma 350 mg tablet RxNorm: 811627 Tablet(s) PO TAKE ON E TABLET BY MOUTH THREE TIMES A DAY NEEDED FOR MUSCLE SPASMS. THIS MUST LAST 30 DAYS BETWEEN REFILLS. 10/13/2013 12/10/2013 Inactive (Appended: Cont rolled substance eRx refill - RxReferenceNumber: [id number]) hydrocodone 10 mg-acetaminophen 325 mg tablet RxNorm: 142533 1-2 Tablet(s) PO QID as needed for severe pain 10/03/2013 11/11/2013 Inactive diclofenac sodium 75 mg tablet,delayed release RxNorm: 80118 8 1 Tablet(s) PO BID for pain 09/11/2013 12/10/2013 Inactive alprazolam 0.5 mg tablet RxNorm: 037816 1 Tablet(s) PO BID May refill on 04/26/13 09/01/2013 10/30/2013 Inactive prn hydrocodone 10 mg-acetaminophen 325 mg tablet RxNorm: 486003 1-2 Tablet(s) PO QID as needed for severe pain 09/01/2013 10/02/2013 Inactive triamterene 75 mg-hydrochlorothiazide 50 mg tablet RxNorm: 3 98599 1 Tablet(s) PO QD 08/04/2013 08/31/2014 Inactive cyclobenzaprine 10 mg tablet RxNorm: 209710 1 Tablet(s) PO TID prn spasm 08/04/2013 08/13/2013 Inactive clonidine 0.1 mg tablet RxNorm: 646394 1 Tablet(s) PO TID 08/04/2013 11/11/2013 Inactive replaces 0.2mg dose cyclobenzaprine 10 mg tablet RxNorm: 915012 1 Tablet(s) PO TID prn spasm 07/23/2013 08/01/2013 Inactive hydrocodone 10 mg-acetaminophen 325 mg tablet RxNorm: 424472 2 1-2 Tablet(s) PO QID as needed for severe pain 06/09/2013 08/07/2013 Inactive Singulair 10 mg tablet RxNorm: 794921 1 Tablet(s) PO QD 05/29/2013 Inactive Klor-Con 8 mEq tablet,extended release RxNorm: 032231 1 Tablet( s) PO BID 05/29/2013 02/26/2014 Inactive allopurinol 300 mg tablet RxNorm: 749472 1 Tablet(s) PO QD 05/29/20 13 11/19/2013 Inactive Bystolic 10 mg tablet RxNorm: 919063 1 Tablet(s) PO QAM take one daily in the morning. 05/29/2013 11/11/2013 Inactive scopolamine 1.5 mg 72 hr Transderm Patch RxNorm: 221849 Application TD Q72H for motion sickness 05/26/2013 07/22/2013 Inactive Soma 350 mg tablet RxNorm: 351225 1 Tablet(s) PO TID as needed for spasm 05/19/2013 10/13/2013 Inactive diclofenac sodium 75 mg tablet,delayed release RxNorm: 24502 8 1 Tablet(s) PO BID for pain 05/14/2013 07/22/2013 Inactive allopurinol 300 mg tablet RxNorm: 197807 1 Tablet(s) PO QD 04/25/20 13 05/28/2013 Inactive alprazolam 0.5 mg tablet RxNorm: 577548 1 Tablet(s) PO BID May refill on 04/26/13 04/25/2013 06/23/2013 Inactive prn Celebrex 200 mg capsule RxNorm: 635749 1 Capsule(s) PO QD 04/16/2013 12/29/2013 Inactive alprazolam 0.5 mg tablet RxNorm: 819058 1 Tablet(s) PO BID May refill on 04/26/13 04/16/2013 04/24/2013 Inactive prn Soma 350 mg tablet RxNorm: 480014 1 Tablet(s) PO TID as needed for spasm 04/16/2013 No Stop Date Active Lasix 40 mg tablet RxNorm: 776939 1 Tablet(s) PO QAM s hould take potassium supplementation with this medication 04/16/2013 06/14/2013 Inactive clonidine 0.1 mg tablet RxNorm: 182116 1 Tablet(s) PO TID 04/16/2013 08/03/2013 Inactive replaces 0.2mg dose prednisone 20 mg tablet RxNorm: 484571 1 Tablet(s) PO BID 04/16/2013 04/20/2013 Inactive diclofenac sodium 75 mg tablet,delayed release RxNorm: 61058 8 1 Tablet(s) PO BID for pain 04/14/2013 05/13/2013 Inactive hydrocodone 10 mg-acetaminophen 325 mg tablet RxNorm: 003998 2 1-2 Tablet(s) PO QID as needed for severe pain 04/14/2013 No Stop Date Active Lasix 40 mg tablet RxNorm: 517671 1 Tablet(s) PO QAM s hould take potassium supplementation with this medication 03/31/2013 04/15/2013 Inactive Celebrex 200 mg capsule RxNorm: 121951 1 Capsule(s) PO QD 03/31/2013 04/15/2013 Inactive alprazolam 0.5 mg tablet RxNorm: 857144 1 Tablet(s) PO BID 03/28/20 13 04/15/2013 Inactive prn hydrocodone 10 mg-acetaminophen 325 mg tablet RxNorm: 388952 2 1-2 Tablet(s) PO QID as needed for severe pain 03/10/2013 No Stop Date Active metformin ER 500 mg 24 hr tablet,extended release RxNorm: 86 1018 1 Tablet(s) PO QD 03/06/2013 07/22/2013 Inactive clindamycin 300 mg capsule RxNorm: 745144 2 Capsule(s) PO TID 03/0503/14/2013 Inactive Zaroxolyn 2.5 mg tablet RxNorm: 814435 1 Tablet(s) PO QAM 03/05/2013 05/19/2015 Inactive amlodipine 10 mg tablet RxNorm: 047378 1 Tablet(s) PO QD 03/03/2013 0 05/25/2013 Inactive Norvasc 10 mg tablet RxNorm: 294378 1 Tablet(s) PO QD 02/28/201307/11 Inactive Celebrex 200 mg capsule RxNorm: 076944 1 Capsule(s) PO QD 02/28/2013 03/30/2013 Inactive diclofenac sodium 75 mg tablet,delayed release RxNorm: 82011 8 1 Tablet(s) PO BID for pain 02/14/2013 03/15/2013 Inactive Soma 350 mg tablet RxNorm: 744209 1 Tablet(s) PO TID as needed for spasm 02/14/2013 No Stop Date Active hydrocodone 10 mg-acetaminophen 325 mg tablet RxNorm: 867895 2 1-2 Tablet(s) PO QID as needed for severe pain 02/14/2013 No Stop Date Active Norvasc 10 mg tablet RxNorm: 570044 1 Tablet(s) PO QD 02/10/201302/09 Inactive Celebrex 200 mg capsule RxNorm: 856841 1 Capsule(s) PO QD 01/27/2013 01/26/2013 Inactive Premarin 1.25 mg tablet RxNorm: 101523 1-2 Tablet(s) PO QD 01/28/20 13 06/25/2013 Inactive alprazolam 0.5 mg tablet RxNorm: 156698 1 Tablet(s) PO BID 01/28/20 13 02/25/2013 Inactive prn amlodipine 5 mg tablet RxNorm: 713402 1 Tablet(s) PO QD 01/27/2013 Inactive Celebrex 200 mg capsule RxNorm: 302123 1 Capsule(s) PO QD 01/27/2013 02/27/2013 Inactive gabapentin 600 mg tablet RxNorm: 306419 1 Tablet(s) PO QHS 01/16/20 13 07/22/2013 Inactive Soma 350 mg tablet RxNorm: 357006 1 Tablet(s) PO TID as needed for spasm 01/15/2013 No Stop Date Active hydrocodone 10 mg-acetaminophen 325 mg tablet RxNorm: 757983 2 1-2 Tablet(s) PO QID as needed for severe pain 01/15/2013 No Stop Date Active Soma 350 mg tablet RxNorm: 928585 1 Tablet(s) PO TID as needed for spasm 01/13/2013 No Stop Date Active alprazolam 0.5 mg tablet RxNorm: 509990 1 Tablet(s) PO BID 12/31/19 13 01/26/2013 Inactive prn diclofenac sodium 75 mg tablet,delayed release RxNorm: 87191 8 1 Tablet(s) PO BID for pain 12/09/2012 01/07/2013 Inactive gabapentin 600 mg tablet RxNorm: 472725 1 Tablet(s) PO QHS 12/10/19 13 01/07/2013 Inactive hydrocodone 10 mg-acetaminophen 325 mg tablet RxNorm: 080500 2 1-2 Tablet(s) PO QID as needed for severe pain 12/02/2012 No Stop Date Active Levaquin 750 mg tablet RxNorm: 056291 1 Tablet(s) PO QD 11/21/2012 Inactive Singulair 10 mg tablet RxNorm: 566976 1 Tablet(s) PO QD 11/11/2012 Inactive clonidine 0.2 mg tablet RxNorm: 981444 1 Tablet(s) PO TID 11/11/2012 04/15/2013 Inactive alprazolam 0.5 mg tablet RxNorm: 680934 1 Tablet(s) PO BID 11/12/19 13 12/10/2012 Inactive prn Klor-Con 8 mEq tablet,extended release RxNorm: 157313 1 Tablet( s) PO BID 11/11/2012 03/04/2013 Inactive hydrocodone 10 mg-acetaminophen 325 mg tablet RxNorm: 650872 2 1-2 Tablet(s) PO QID as needed for severe pain 11/06/2012 No Stop Date Active alprazolam 0.5 mg tablet RxNorm: 631784 1 Tablet(s) PO BID 10/15/19 13 11/10/2012 Inactive prn hydrocodone-acetaminophen 10 mg-325 mg tablet RxNorm: 627593 2 1-2 Tablet(s) PO QID as needed for severe pain 10/10/2012 10/09/2012 Inactive allopurinol 300 mg tablet RxNorm: 773388 1 Tablet(s) PO QD 09/20/19 13 12/18/2012 Inactive alprazolam 0.5 mg tablet RxNorm: 096627 1 Tablet(s) PO BID 09/17/19 13 10/14/2012 Inactive prn hydrocodone-acetaminophen 10 mg-325 mg tablet RxNorm: 419506 2 1-2 Tablet(s) PO QID as needed for severe pain 08/22/2012 08/21/2012 Inactive Norvasc 10 mg tablet RxNorm: 705996 1 Tablet(s) PO QD 08/12/201201/10 Inactive Premarin 1.25 mg tablet RxNorm: 926616 1-2 Tablet(s) PO QD 07/30/20 12 12/26/2012 Inactive alprazolam 0.5 mg tablet RxNorm: 652943 1 Tablet(s) PO BID 07/29/20 12 08/27/2012 Inactive prn Klor-Con 8 mEq tablet,extended release RxNorm: 344177 1 Tablet( s) PO BID 07/29/2012 11/10/2012 Inactive hydrocodone-acetaminophen 10 mg-325 mg tablet RxNorm: 114944 2 1-2 Tablet(s) PO QID as needed for severe pain 07/29/2012 No Stop Date Active Premarin 1.25 mg tablet RxNorm: 702597 1-2 Tablet(s) PO QD 07/29/20 12 07/29/2012 Inactive clonidine 0.2 mg tablet RxNorm: 705251 1 Tablet(s) PO TID 07/29/2012 10/28/2012 Inactive ketorolac 10 mg tablet RxNorm: 991266 1 Tablet(s) PO QID prn he adache 07/18/2012 No Stop Date Active hydrocodone-acetaminophen 10 mg-325 mg tablet RxNorm: 979838 2 1-2 Tablet(s) PO QID as needed for severe pain 07/03/2012 No Stop Date Active amlodipine 5 mg tablet RxNorm: 549412 1 Tablet(s) PO QD 07/02/2012 Inactive allopurinol 300 mg tablet RxNorm: 252347 1 Tablet(s) PO QD 07/02/20 12 09/19/2012 Inactive Celebrex 200 mg capsule RxNorm: 984252 1 Capsule(s) PO QD for j oint pain 06/26/2012 10/23/2012 Inactive diclofenac sodium 75 mg tablet,delayed release RxNorm: 17287 8 1 Tablet(s) PO BID for pain 06/19/2012 09/16/2012 Inactive hydrocodone-acetaminophen 10 mg-325 mg tablet RxNorm: 193505 2 1-2 Tablet(s) PO QID as needed for severe pain 06/10/2012 No Stop Date Active alprazolam 0.5 mg tablet RxNorm: 226922 1 Tablet(s) PO BID 06/03/20 12 07/02/2012 Inactive prn ketorolac 10 mg tablet RxNorm: 494383 1 Tablet(s) PO Q8H 05/27/2012 0 01/21/2019 Inactive as needed for headache hydrocodone-acetaminophen 10 mg-325 mg tablet RxNorm: 985328 2 1-2 Tablet(s) PO QID as needed for severe pain 05/15/2012 No Stop Date Active allopurinol 300 mg tablet RxNorm: 182881 1 Tablet(s) PO QD 05/14/20 12 06/12/2012 Inactive allopurinol 300 mg tablet RxNorm: 161021 1 Tablet(s) PO QD 05/14/20 12 05/13/2012 Inactive amlodipine 5 mg tablet RxNorm: 739768 1 Tablet(s) PO QD 05/01/2012 Inactive amlodipine 5 mg Tab RxNorm: 665785 1 Tablet(s) PO QD 05/01/201204/30 Inactive Celebrex 200 mg capsule RxNorm: 536964 1 Capsule(s) PO QD for j oint pain 05/01/2012 06/25/2012 Inactive Singulair 10 mg tablet RxNorm: 908865 1 Tablet(s) PO QD 05/01/2012 Inactive alprazolam 0.5 mg tablet RxNorm: 981029 1 Tablet(s) PO BID 05/01/20 12 05/30/2012 Inactive prn Celebrex 200 mg Cap RxNorm: 856306 1 Capsule(s) PO QD for joint radu n 05/01/2012 04/30/2012 Inactive hydrocodone-acetaminophen 10 mg-325 mg tablet RxNorm: 388768 2 1-2 Tablet(s) PO QID as needed for severe pain 04/19/2012 No Stop Date Active Lasix 40 mg tablet RxNorm: 761467 1 Tablet(s) PO QAM s hould take potassium supplementation with this medication 04/05/2012 06/03/2012 Inactive alprazolam 0.5 mg Tab RxNorm: 787605 1 Tablet(s) PO BID 04/05/2012 Inactive prn hydrocodone-acetaminophen 10 mg-325 mg Tab RxNorm: 0566419 1-2 Tablet(s) PO QID as needed for severe pain 03/25/2012 03/24/2012 Inactive clonidine 0.2 mg Tab RxNorm: 583675 1 Tablet(s) PO TID 03/08/2012 Inactive alprazolam 0.5 mg Tab RxNorm: 430675 1 Tablet(s) PO BID 03/08/2012 Inactive prn Soma 350 mg tablet RxNorm: 577398 1 Tablet(s) PO TID for spasm 02/0903/18/2012 Inactive clonidine 0.2 mg tablet RxNorm: 274478 1 Tablet(s) PO TID 03/08/2012 07/28/2012 Inactive Celebrex 200 mg Cap RxNorm: 970091 1 Capsule(s) PO QD for joint radu n 03/01/2012 04/29/2012 Inactive amlodipine 5 mg Tab RxNorm: 770227 1 Tablet(s) PO QD 02/26/201202/24 Inactive amlodipine 5 mg Tab RxNorm: 252705 1 Tablet(s) PO QD 02/26/201204/25 Inactive Bactroban 2 % Ointment RxNorm: 654569 Application TOP QID to sores 02/23/2012 No Stop Date Active amlodipine 2.5 mg tablet RxNorm: 623707 1 Tablet(s) PO QHS 02/20/2002/25/2012 Inactive doxycycline hyclate 100 mg Cap RxNorm: 2490940 1 Capsule(s) PO BID 02/20/2012 02/29/2012 Inactive hydrocodone-acetaminophen 10 mg-325 mg Tab RxNorm: 0995366 1-2 T ablet(s) PO QID 02/08/2012 No Stop Date Active alprazolam 0.5 mg Tab RxNorm: 771954 1 Tablet(s) PO BID 02/08/2012 Inactive prn Singulair 10 mg Tab RxNorm: 753836 1 Tablet(s) PO QD 02/08/201204/30 Inactive Soma 350 mg Tab RxNorm: 306203 1 Tablet(s) PO TID for spasm 012 03/07/2012 Inactive Soma 350 mg Tab RxNorm: 077671 1 Tablet(s) PO TID for spasm 012 02/05/2012 Inactive diclofenac sodium 75 mg tablet,delayed release RxNorm: 05800 8 1 Tablet(s) PO BID for pain 02/01/2012 03/18/2012 Inactive Celebrex 200 mg Cap RxNorm: 096168 1 Capsule(s) PO QD for joint radu n 01/30/2012 02/28/2012 Inactive Lasix 40 mg Tab RxNorm: 807555 1 Tablet(s) PO QAM 01/24/2012 03/18/20 12 Inactive potassium chloride ER 20 mEq tablet,extended release(part/cr yst) RxNorm: 425066 2 Tablet(s) PO BID 01/24/2012 02/22/2012 Inactive alprazolam 0.5 mg Tab RxNorm: 308518 1 Tablet(s) PO BID 01/11/2012 Inactive prn hydrocodone-acetaminophen 10 mg-325 mg Tab RxNorm: 0938560 1-2 T ablet(s) PO QID 01/11/2012 No Stop Date Active Ambien 10 mg Tab RxNorm: 521001 1 Tablet(s) PO QHS 01/11/2012 012 Inactive Klor-Con 8 mEq Tab RxNorm: 024339 1 Tablet(s) PO BID 01/11/201201/22 Inactive diclofenac sodium 75 mg Tab, Delayed Release RxNorm: 079042 1 Tablet(s) PO BID for pain 01/10/2012 01/31/2012 Inactive Ambien 10 mg Tab RxNorm: 808833 1 Tablet(s) PO QHS 12/11/2011 012 Inactive alprazolam 0.5 mg Tab RxNorm: 353287 1 Tablet(s) PO BID 12/11/2011 Inactive prn hydrocodone 10 mg-acetaminophen 325 mg tablet RxNorm: 841458 1-2 Tablet(s) PO TID 11/28/2011 No Stop Date Active as needed for pa in - Previous quantity #240, will start dosing for #180 in April 2011 per Doctor Td. Ambien 10 mg Tab RxNorm: 634834 1 Tablet(s) PO QHS 11/09/2011 012 Inactive alprazolam 0.5 mg Tab RxNorm: 708598 1 Tablet(s) PO BID 11/09/2011 Inactive prn hydrocodone-acetaminophen 10 mg-325 mg Tab RxNorm: 3915638 1-2 T ablet(s) PO TID 11/06/2011 No Stop Date Active as needed for pain - Previous quantity #240, will start dosing for #180 in April 2011 per Doctor Td. Singulair 10 mg Tab RxNorm: 461470 1 Tablet(s) PO QD 10/13/201110/12 Inactive Singulair 10 mg Tab RxNorm: 725634 1 Tablet(s) PO QD 10/13/201102/06 Inactive hydrocodone-acetaminophen 10 mg-325 mg Tab RxNorm: 4733744 1-2 T ablet(s) PO TID 10/10/2011 10/09/2011 Inactive as needed for pain - Previous quantity #240, will start dosing for #180 in April 2011 per Doctor Td. hydrocodone-acetaminophen 10 mg-325 mg Tab RxNorm: 2131075 1-2 T ablet(s) PO TID 10/09/2011 No Stop Date Active as needed for pain - Previous quantity #240, will start dosing for #180 in April 2011 per Doctor Td. Klor-Con 8 mEq Tab RxNorm: 912331 1 Tablet(s) PO BID 10/02/201101/09 Inactive triamterene 75 mg-hydrochlorothiazide 50 mg tablet RxNorm: 3 42083 1 Tablet(s) PO QD 09/14/2011 03/06/2013 Inactive Ambien 10 mg Tab RxNorm: 752115 1 Tablet(s) PO QHS 09/14/2011 012 Inactive hydrocodone-acetaminophen 10 mg-325 mg Tab RxNorm: 6584712 1-2 T ablet(s) PO TID 09/14/2011 No Stop Date Active as needed for pain - Previous quantity #240, will start dosing for #180 in April 2011 per Doctor Td. alprazolam 0.5 mg Tab RxNorm: 156621 1 Tablet(s) PO BID 09/14/2011 Inactive prn Zithromax 500 mg Tab RxNorm: 926202 1 Tablet(s) PO QD 09/13/201109/10 Inactive prednisone 20 mg Tab RxNorm: 400459 1 Tablet(s) PO BID 08/31/2011 Inactive Ambien 10 mg Tab RxNorm: 280672 1 Tablet(s) PO QHS 08/17/2011 011 Inactive hydrocodone-acetaminophen 10 mg-325 mg Tab RxNorm: 4116477 1-2 T ablet(s) PO TID 08/17/2011 No Stop Date Active as needed for pain - Previous quantity #240, will start dosing for #180 in April 2011 per Doctor Td. clonidine 0.2 mg Tab RxNorm: 429699 1 Tablet(s) PO TID 08/17/201112/2011 Inactive Ambien 10 mg Tab RxNorm: 152799 1 Tablet(s) PO QHS 08/17/2011 019 Inactive alprazolam 0.5 mg Tab RxNorm: 436466 1 Tablet(s) PO BID 08/17/2011 Inactive prn hydrocodone-acetaminophen 10 mg-325 mg Tab RxNorm: 8973372 1-2 T ablet(s) PO TID 08/17/2011 08/16/2011 Inactive as needed for pain - Previous quantity #240, will start dosing for #180 in April 2011 per Doctor Td. Singulair 10 mg Tab RxNorm: 762463 1 Tablet(s) PO QD 08/17/201108/16 Inactive Klor-Con 8 mEq Tab RxNorm: 480314 1 Tablet(s) PO QD 08/17/20112011 Inactive alprazolam 0.5 mg Tab RxNorm: 250434 1 Tablet(s) PO BID 07/20/2011 Inactive prn Ambien 10 mg Tab RxNorm: 626614 1 Tablet(s) PO QHS 07/20/2011 012 Inactive Singulair 10 mg Tab RxNorm: 420229 1 Tablet(s) PO QD 07/20/201107/19 Inactive Premarin 1.25 mg tablet RxNorm: 196979 2 Tablet(s) PO QD 07/20/2011 0 01/21/2019 Inactive Premarin 1.25 mg tablet RxNorm: 654688 1-2 Tablet(s) PO QD 07/20/20 11 12/16/2011 Inactive Premarin 1.25 mg Tab RxNorm: 346388 1-2 Tablet(s) PO QD 07/06/2011 Inactive alprazolam 0.5 mg Tab RxNorm: 042265 1 Tablet(s) PO BID 06/22/2011 Inactive prn alprazolam 0.5 mg Tab RxNorm: 006468 1 Tablet(s) PO BID 06/22/2011 Inactive prn Premarin 1.25 mg Tab RxNorm: 722003 1 Tablet(s) PO QD m ay do 90 day fill if desired 06/22/2011 07/05/2011 Inactive hydrocodone-acetaminophen 10 mg-325 mg Tab RxNorm: 3393254 1-2 T ablet(s) PO TID 06/22/2011 No Stop Date Active as needed for pain - Previous quantity #240, will start dosing for #180 in April 2011 per Doctor Td. clonidine 0.2 mg Tab RxNorm: 609263 1 Tablet(s) PO TID 05/25/201103/2011 Inactive triamterene-hydrochlorothiazide 75 mg-50 mg Tab RxNorm: 3108 18 1 Tablet(s) PO QD 05/25/2011 09/13/2011 Inactive alprazolam 0.5 mg Tab RxNorm: 510047 1 Tablet(s) PO BID 05/25/2011 Inactive prn hydrocodone-acetaminophen 10 mg-325 mg Tab RxNorm: 8691349 1-2 T ablet(s) PO TID 05/25/2011 No Stop Date Active as needed for pain - Previous quantity #240, will start dosing for #180 in April 2011 per Doctor Td. Robaxin-750 750 mg Tab RxNorm: 254755 2 Tablet(s) PO QHS 05/22/2011 1 Inactive prn spasm hydrocodone-acetaminophen 10 mg-325 mg Tab RxNorm: 2817171 1-2 T ablet(s) PO TID 04/26/2011 No Stop Date Active as needed for pain - Previous quantity #240, will start dosing for #180 in April 2011 per Doctor Td. alprazolam 0.5 mg Tab RxNorm: 301129 1 Tablet(s) PO BID 04/25/2011 Inactive prn Klor-Con 8 mEq Tab RxNorm: 243515 1 Tablet(s) PO QD 03/30/20112010 Inactive Klor-Con 8 mEq Tab RxNorm: 989061 1 Tablet(s) PO QD 03/29/20112010 Inactive hydrocodone-acetaminophen 10 mg-325 mg Tab RxNorm: 4876464 1-2 T ablet(s) PO TID 03/20/2011 04/25/2011 Inactive as needed for pain - Previous quantity #240, will start dosing for #180 in April 2011 per Doctor Td. alprazolam 0.5 mg Tab RxNorm: 796937 1 Tablet(s) PO BID prn 011 03/30/2011 Inactive Ambien 10 mg Tab RxNorm: 323452 1 Tablet(s) PO QHS 03/01/2011 011 Inactive cyclobenzaprine 10 mg Tab RxNorm: 545301 1 Tablet(s) PO TID 011 03/18/2012 Inactive cyclobenzaprine 10 mg Tab RxNorm: 576406 1 Tablet(s) PO TID 011 01/08/2011 Inactive cyclobenzaprine 10 mg Tab RxNorm: 472177 1 Tablet(s) PO TID 011 12/20/2010 Inactive terbinafine 250 mg Tab RxNorm: 487565 1 Tablet(s) PO QD 12/12/2010 Inactive triamterene-hydrochlorothiazide 75 mg-50 mg Tab RxNorm: 3108 18 1 Tablet(s) PO QD 12/07/2010 06/04/2011 Inactive Klor-Con 8 8 mEq Tab RxNorm: 233161 1 Tablet(s) PO QD 12/07/201001/08 Inactive Premarin 1.25 mg Tab RxNorm: 681326 2 Tablet(s) PO QD 12/07/201001/08 Inactive clonidine 0.2 mg Tab RxNorm: 529714 1 Tablet(s) PO TID 12/07/2010 Inactive hydrocodone-acetaminophen 7.5 mg-650 mg Tab RxNorm: 332995 1 Ta blet(s) PO Q4H 12/05/2010 01/21/2019 Inactive hydrocodone-acetaminophen 7.5 mg-650 mg Tab RxNorm: 997842 1 Ta blet(s) PO Q4H 10/26/2010 11/14/2010 Inactive hydrocodone-acetaminophen 7.5 mg-650 mg Tab RxNorm: 000819 1 Ta blet(s) PO Q4H 10/13/2010 10/25/2010 Inactive hydrocodone-acetaminophen 7.5 mg-650 mg Tab RxNorm: 163680 1 Ta blet(s) PO Q4H 09/15/2010 09/12/2010 Inactive alprazolam 0.5 mg Tab RxNorm: 847954 1 Tablet(s) PO BID prn 011 09/12/2010 Inactive terbinafine 250 mg Tab RxNorm: 082073 1 Tablet(s) PO QD 09/05/2010 Inactive hydrocodone-acetaminophen 7.5 mg-650 mg Tab RxNorm: 181723 1 Ta blet(s) PO Q4H 08/29/2010 09/17/2010 Inactive alprazolam 0.5 mg Tab RxNorm: 758325 1 Tablet(s) PO BID prn 010 09/27/2010 Inactive alprazolam 0.5 mg Tab RxNorm: 811029 1 Tablet(s) PO BID prn 010 09/06/2010 Inactive Klor-Con 8 mEq Tab RxNorm: 025773 1 Tablet(s) PO QD 08/08/20102010 Inactive hydrocodone-acetaminophen 7.5 mg-650 mg Tab RxNorm: 834562 1 Ta blet(s) PO Q4H 08/08/2010 08/27/2010 Inactive Ambien 10 mg Tab RxNorm: 600615 1 Tablet(s) PO QHS 08/08/2010 Inactive clonidine 0.2 mg Tab RxNorm: 711876 1 Tablet(s) PO TID 08/08/2010 Inactive Premarin 1.25 mg Tab RxNorm: 534794 2 Tablet(s) PO QD 08/08/201009/12 Inactive Ambien 10 mg Tab RxNorm: 374592 1 Tablet(s) PO QHS 07/18/2010 Inactive alprazolam 0.5 mg Tab RxNorm: 943463 1 Tablet(s) PO BID prn 08/07/2010 Inactive hydrocodone-acetaminophen 7.5 mg-650 mg Tab RxNorm: 162969 1 Ta blet(s) PO Q4H 07/12/2010 07/31/2010 Inactive clonidine 0.2 mg Tab RxNorm: 324186 1 Tablet(s) PO TID 06/20/2010 Inactive terbinafine 250 mg Tab RxNorm: 637905 1 Tablet(s) PO QD 05/24/2010 Inactive Clonidine 0.2 mg Tab RxNorm: 904825 1 Tablet(s) PO TID 05/24/201006/2010 Inactive Ambien 10 mg Tab RxNorm: 985304 1 Tablet(s) PO QHS 05/24/2010 Inactive alprazolam 0.5 mg Tab RxNorm: 184361 1 Tablet(s) PO BID 05/24/2010 Inactive Klor-Con 8 mEq Tab RxNorm: 765168 1 Tablet(s) PO QD 05/24/20102009 Inactive alprazolam 0.5 mg Tab RxNorm: 631508 2 Tablet(s) PO QD prn 05/24/20 10 07/17/2010 Inactive triamterene-hydrochlorothiazide 75 mg-50 mg Tab RxNorm: 3108 18 1 Tablet(s) PO QD 05/24/2010 11/19/2010 Inactive Ambien 10 mg Tab RxNorm: 615027 1 Tablet(s) PO QHS 05/23/2010 010 Inactive Alprazolam 0.5 mg Tab RxNorm: 589063 2 Tablet(s) PO QD prn 05/23/2005/23/2010 Inactive Premarin 1.25 mg Tab RxNorm: 528447 2 Tablet(s) PO QD 05/19/201007/12 Inactive Hydrocodone-Acetaminophen 7.5 mg-650 mg Tab RxNorm: 645908 1 Ta blet(s) PO Q4H 05/19/2010 03/20/2011 Inactive Prednisone 20 mg Tab RxNorm: 176987 1 Tablet(s) PO BID 05/17/2010 Inactive Prednisone 20 mg Tab RxNorm: 048514 1 Tablet(s) PO BID 05/06/201001/2010 Inactive Premarin 1.25 mg Tab RxNorm: 585086 Tablet(s) PO 2 M-W-F, and 1 Hi-Ab-Bbw-Sun 05/05/2010 08/02/2010 Inactive Premarin 1.25 mg Tab RxNorm: 986180 Tablet(s) PO 2 M-W-F, and 1 Gx-Ns-Cee-Sun 05/04/2010 05/04/2010 Inactive Premarin 1.25 mg Tab RxNorm: 983662 Tablet(s) PO 2 M-W-F, and 1 Kq-Rx-Atm-Sun 05/04/2010 05/03/2010 Inactive Prednisone 20 mg Tab RxNorm: 675080 1 Tablet(s) PO BID 04/27/2010 Inactive Alprazolam 0.5 mg Tab RxNorm: 535633 2 Tablet(s) PO QD prn 04/26/2005/22/2010 Inactive Clindamycin 300 mg Cap RxNorm: 257224 2 Capsule(s) PO TID 04/05/2010 04/18/2010 Inactive Terbinafine 250 mg Tab RxNorm: 512152 1 Tablet(s) PO QD 04/04/2010 Inactive Hydrocodone-Acetaminophen 7.5 mg-650 mg Tab RxNorm: 187080 1 Ta blet(s) PO Q4H 03/30/2010 04/18/2010 Inactive Avelox 400 mg Tab RxNorm: 951163 1 Tablet(s) PO QD 03/09/2010 010 Inactive Hydrocodone-Acetaminophen 7.5 mg-650 mg Tab RxNorm: 063362 1 Ta blet(s) PO Q4H 03/08/2010 03/27/2010 Inactive Alprazolam 0.5 mg Tab RxNorm: 003135 2 Tablet(s) PO QD prn 03/08/20 10 04/25/2010 Inactive Klor-Con 8 mEq Tab RxNorm: 816438 1 Tablet(s) PO QD when takes lasi x 03/07/2010 09/29/2019 Inactive Premarin 1.25 mg Tab RxNorm: 290793 1 Tablet(s) PO QD 03/03/201003/11 Inactive Alprazolam 0.5 mg Tab RxNorm: 749787 1 Tablet(s) PO BID PRN 010 No Stop Date Active triamterene-hydrochlorothiazide 75 mg-50 mg Tab RxNorm: 3108 18 1 Tablet(s) PO QD 02/09/2010 02/03/2011 Inactive Hydrocodone-Acetaminophen 10 mg-750 mg Tab RxNorm: 513575 1 Tablet(s) PO Q4H PRN 02/09/2010 03/20/2011 Inactive Clonidine 0.2 mg Tab RxNorm: 158841 1 Tablet(s) PO TID 01/13/201009/2009 Inactive Alprazolam 0.5 mg Tab RxNorm: 526724 1 Tablet(s) PO BID PRN 010 01/12/2010 Inactive Hydrocodone-Acetaminophen 10 mg-750 mg Tab RxNorm: 737704 1 Tablet(s) PO Q4H PRN 01/13/2010 01/12/2010 Inactive ANGELIQ 1 mg-0.5 mg Tab RxNorm: 0253238 1 Tablet(s) PO QD 12/27/2009 01/23/2010 Inactive Lasix 40 mg Tab RxNorm: 914415 1 Tablet(s) PO QAM 12/14/2009 06/11/20 10 Inactive Vitamin B12 1000mcg Tablet RxNorm: 1 Tablet(s) PO QD No Start Date Active cyclobenzaprine 10 mg tablet RxNorm: 605176 1 Tablet(s) PO TID as needed DO NOT USE WITH BACLOFEN No Start Date Active Vitamin D 5,000 unit Tab RxNorm: 1 Tablet(s) PO QD No Start Date Active vitamin E (dl, acetate) 400 unit Cap RxNorm: 882165 1 Capsule(s ) PO QD No Start Date Active Benadryl 25 mg Cap RxNorm: 7363608 Capsule(s) PO PRN No Start Date Inactive amitriptyline 100 mg tablet RxNorm: 661231 1 Tablet(s) PO QHS No St art Date 11/27/2016 Inactive Zithromax Z-Dustin 250 mg tablet RxNorm: 021411 Tablet(s) PO as di rected No Start Date 07/22/2013 Inactive Klor-Con 8 mEq tablet,extended release RxNorm: 368531 1 Tablet( s) PO BID No Start Date 07/28/2012 Inactive scopolamine 1.5 mg 72 hr Transderm Patch RxNorm: 545807 Application TD Q72H for motion sickness No Start Date 05/25/2013 Inactive Klonopin 1 mg tablet RxNorm: 273978 1-2 Tablet(s) PO QHS as nee ded for sleep No Start Date 06/20/2015 Inactive Klor-Con M20 mEq tablet,extended release RxNorm: 288733 2 Tablet(s) PO BID to use with lasix No Start Date 11/11/2013 Inactive Bystolic 5 mg tablet RxNorm: 137634 1 Tablet(s) PO QD No Start Date 1 Inactive Bystolic 10 mg tablet RxNorm: 998741 1 Tablet(s) PO BID No Start Da te 07/06/2015 Inactive Premarin 1.25 mg Tab RxNorm: 146150 Tablet(s) PO 2 -W-, and 1 Ff-Zn-Qag-Sun No Start Date 05/03/2010 Inactive baclofen 20 mg tablet RxNorm: 870675 1 Tablet(s) PO TID as needed for muscle spasm No Start Date 07/22/2015 Inactive hydrocodone-acetaminophen 7.5 mg-650 mg Tab RxNorm: 690093 1 Tablet(s) PO Q4H as needed for pain No Start Date 03/20/2011 Inactive albuterol sulfate 1.25 mg/3 mL Neb Solution RxNorm: 278682 1 Unit Dose INH Q4H 2boxes No Start Date 09/06/2015 Inactive Butrans 20 mcg/hour Transderm Patch RxNorm: 047698 1 TD WEEKLY apply to skin weekly after removing previous. No Start Date 07/22/2013 Inactive Medrol (Dustin) 4 mg tablets in a dose pack RxNorm: 437028 Tablet(s) PO As Directed No Start Date 07/30/2016 Inactive hydrocodone-acetaminophen 10 mg-325 mg Tab RxNorm: 4054035 1-2 Tablet(s) PO TID as needed for pain No Start Date 03/19/2011 Inactive Klonopin 1 mg tablet RxNorm: 926261 1 Tablet(s) PO QHS No Start Date 02/28/2016 Inactive honey topical RxNorm: topical No Start Date 06/16/2018 Inactive Clonidine 0.2 mg Tab RxNorm: 630492 1 Tablet(s) PO TID No Start Date 01/12/2010 Inactive ketorolac 10 mg tablet RxNorm: 594969 1 Tablet(s) PO Q8H No Start D ate 03/18/2012 Inactive as needed for headache Singulair 10 mg Tab RxNorm: 627481 1 Tablet(s) PO QD No Start Date Inactive Premarin 1.25 mg Tab RxNorm: 058049 1 Tablet(s) PO QD No Start Date 1 Inactive Flonase 50 mcg/Actuation Nasal Russell RxNorm: 8893980 1 Russell CECELIA AL BID No Start Date 03/18/2012 Inactive Terbinafine 250 mg Tab RxNorm: 741035 1 Tablet(s) PO QD No Start Da te 04/03/2010 Inactive Fexofenadine 180 mg Tab RxNorm: 0017199 1 Tablet(s) PO QD No Start Date 09/06/2015 Inactive baclofen 20 mg tablet RxNorm: 888649 1 Tablet(s) PO TID as needed N o Start Date 05/25/2014 Inactive Diovan 160 mg Tab RxNorm: 959164 1 Tablet(s) PO QD No Start Date 09/12 Inactive mupirocin 2 % topical ointment RxNorm: 952994 1 Application TOP QID No Start Date 04/25/2016 Inactive ZOFRAN ODT 4 mg Tab, Rapid Dissolve RxNorm: 106401 1 Tablet(s) PO Q4H No Start Date 03/18/2012 Inactive as needed for nausea and vomiting Alprazolam 0.5 mg Tab RxNorm: 072416 1 Tablet(s) PO BID PRN No Star t Date 01/12/2010 Inactive cyclobenzaprine 10 mg tablet RxNorm: 970574 1 Tablet(s) PO TID as needed for muscle spasm No Start Date 10/08/2017 Inactive Albuterol 0.083% Aerosol Solution RxNorm: 1 Appl ication INH Q4H Use one ampule every 4 hrs with nebulizer as needed for shortness of breath. No Start Date 10/09/2010 Inactive lorazepam 1 mg tablet RxNorm: 176013 1 1/2 Tablet(s) PO QHS No Star t Date 02/02/2016 Inactive Melatonin 3 mg Tab RxNorm: 426252 Tablet(s) PO PRN No Start Date 07/11 Inactive Medrol (Dustin) 4 mg Tabs in a Dose Pack RxNorm: 764484 Tablet(s) PO N o Start Date 11/28/2010 Inactive lorazepam 1 mg tablet RxNorm: 152237 1 Tablet(s) PO QHS as need ed for sleep No Start Date 01/30/2016 Inactive hydrocodone-acetaminophen 10 mg-325 mg Tab RxNorm: 4527420 1-2 Tablet(s) PO QID as needed for severe pain No Start Date 03/24/2012 Inactive celecoxib 200 mg capsule RxNorm: 818585 1 Capsule(s) PO BID No Star t Date 06/26/2019 Inactive amlodipine 5 mg-benazepril 20 mg capsule RxNorm: 592133 1 Capsu le(s) PO QD No Start Date 04/10/2017 Inactive Bystolic 20 mg tablet RxNorm: 021740 1/2 Tablet(s) PO QAM No Start Date 01/23/2016 Inactive Bystolic 20 mg tablet RxNorm: 446531 1 Tablet(s) PO QAM No Start Da te 04/25/2016 Inactive Ambien 10 mg Tab RxNorm: 027354 1 Tablet(s) PO QHS No Start Date 05/11 Inactive Klor-Con 8 mEq Tab RxNorm: 778091 1 Tablet(s) PO QD when takes lasix No Start Date 03/06/2010 Inactive aspirin 81 mg tablet RxNorm: 576927 1 Tablet(s) PO QD No Start Date 0 01/29/2018 Inactive hydrocodone-acetaminophen 10 mg-325 mg Tab RxNorm: 8975841 1-2 T ablet(s) PO QID No Start Date 01/10/2012 Inactive Bystolic 10 mg tablet RxNorm: 452722 1 Tablet(s) PO QAM take one daily in the morning. No Start Date 05/28/2013 Inactive nystatin 100,000 unit/mL Oral Susp RxNorm: 932137 5 Milliliter( s) PO QID No Start Date 03/18/2012 Inactive swish and spit scopolamine 1.5 mg 72 hr Transderm Patch RxNorm: 976847 1 Unit Dose TD Q72H for motion sickness No Start Date 12/23/2013 Inactive Hydrocodone-Acetaminophen 10 mg-750 mg Tab RxNorm: 496608 1 Tablet(s) PO Q4H PRN No Start Date 01/12/2010 Inactive Soma 350 mg tablet RxNorm: 050542 1 Tablet(s) PO TID as needed for spasm No Start Date 01/12/2013 Inactive baclofen 10 mg tablet RxNorm: 159116 1 Tablet(s) PO TID as needed for muscle spasm No Start Date 09/18/2019 Inactive Soma 350 mg Tab RxNorm: 291332 1 Tablet(s) PO TID for spasm No Star t Date 01/31/2012 Inactive Co Q-10 400 mg capsule RxNorm: 033561 1 Capsule(s) PO QD No Start D ate 01/21/2019 Inactive nystatin 100,000 unit/gram topical cream RxNorm: 884659 Applica tion TOP BID No Start Date 03/22/2015 Inactive Exforge 5 mg-160 mg Tab RxNorm: 161657 1 Tablet(s) PO QD No Start D ate 10/09/2010 Inactive Hydrocodone-Acetaminophen 7.5 mg-650 mg Tab RxNorm: 053939 1 Ta blet(s) PO Q4H No Start Date 03/07/2010 Inactive Robaxin-750 750 mg Tab RxNorm: 696980 1-2 Tablet(s) PO TID prn spasm No Start Date 05/21/2011 Inactive amlodipine 5 mg tablet RxNorm: 532501 1 Tablet(s) PO QHS No Start D ate 09/29/2015 Inactive oxycodone-acetaminophen 10 mg-325 mg tablet RxNorm: 5495775 1-2 Tablet(s) PO Q6H No Start Date 06/16/2018 Inactive Triamterene-Hydrochlorothiazide 75 mg-50 mg Tab RxNorm: 3108 18 1 Tablet(s) PO QD No Start Date 02/08/2010 Inactive Alprazolam 0.5 mg Tab RxNorm: 940467 2 Tablet(s) PO QD prn No Start Date 03/07/2010 Inactive Bystolic 20 mg tablet RxNorm: 765356 1 Tablet(s) PO QAM No Start Da te 08/17/2015 Inactive ketorolac 10 mg tablet RxNorm: 253519 1 Tablet(s) PO QID prn he adache No Start Date 07/17/2012 Inactive acyclovir 800 mg Tab RxNorm: 876452 1 Tablet(s) PO BID No Start Date 03/18/2012 Inactive duloxetine 60 mg capsule,delayed release RxNorm: 479197 1 Capsu le(s) PO QD No Start Date 09/29/2015 Inactive Norvasc 5 mg tablet RxNorm: 634963 1 Tablet(s) PO QHS No Start Date 1 10/18/2014 Inactive promethazine 25 mg tablet RxNorm: 578024 1 Tablet(s) PO Q8H use sparingly No Start Date 07/22/2013 Inactive alprazolam 0.5 mg tablet RxNorm: 236008 3 Tablet(s) PO QHS No Start Date 06/06/2015 Inactive Lunesta 3 mg tablet RxNorm: 999961 1 Tablet(s) PO QHS No Start Date 0 09/20/2017 Inactive hydrocodone-acetaminophen 10 mg-325 mg Tab RxNorm: 6303203 1-2 Tablet(s) PO TID as needed for pain No Start Date 12/10/2011 Inactive Coricidin HBP Cough & Cold 4 mg-30 mg Tab RxNorm: 0647052 Tablet (s) PO PRN No Start Date 10/09/2010 Inactive Bactroban 2 % Ointment RxNorm: 231218 Application TOP QID to so res No Start Date 02/22/2012 Inactive Flonase 50 mcg/actuation Nasal Russell RxNorm: 753166 2 Russell [place] QHS No Start Date 03/03/2014 Inactive Medication Administered No Medication Administered data Immunizations Vaccine Codes Date Status Tetanus, Diptheria, Pertussis CVX: 115 02/27/2014 Results Observation Observation Code Item Item Code Result Date S ervice Location [facility] 62646 AST 15 U/L 2019 Unknown [facility] 37138 ALT 13 U/L 2019 Unknown [facility] 13796 BUN 12 mg/dL 2019 Unknown [facility] 21602 ALBUMIN 3.9 g/dL 2019 Unknown [facility] 16602 CHLORIDE 97 mmol/L 2019 Unknown [facility] 17844 Bili Total 0.4 mg/dL 09/29 Unknown [facility]PREHENS[facility] METABOLIC 68023 ALK PHOS 130 U/L 2019 Unknown [facility] 15846 SODIUM 136 mmol/L 09/29 Unknown [facility]PREHENS[facility] MET[facility]OLIC 48896 CREATININE 0.92 mg/dL 09/11 Unknown [facility] 32694 CALCIUM 9.1 mg/dL 2019 Unknown [facility] 24809 POTASSIUM 4.4 mmol/L 09/29 Unknown [facility] 16551 Total Protein 6.2 g/dL Unknown [facility] 09774 Glucose 391 mg/dL 2019 Unknown [facility] 03309 Bicarbonate 30 mmol/L 09/11 Unknown COMPREHENSIVE METABOLIC 48875 AGAP 9 mmol/L 2019 Unknown MEAN GLUC 6308614 Calc Mean Gluc 332 mg/dL 09/29/2019 Unkn own COMPLETE BLOOD COUNT [id number] WBC 7.0 10e9/L 09/29/19 Unknown COMPLETE BLOOD COUNT [id number] RBC 4.69 10e12/L 2019 Unknown COMPLETE BLOOD COUNT 0483969 HEMOGLOBIN 14.6 g/dL 09/29/19 Unknown COMPLETE BLOOD COUNT 2325609 HEMATOCRIT 45.2 % 09/29/19 Unknown COMPLETE BLOOD COUNT [id number] MCV 96.4 fL 0 Unknown COMPLETE BLOOD COUNT [id number] MCH 31.1 pg 0 Unknown COMPLETE BLOOD COUNT 0657417 MCHC 32.3 g/dL 0 Unknown COMPLETE BLOOD COUNT 7653940 PLATELET COUNT 209 10e9/L Unknown COMPLETE BLOOD COUNT 0323175 Mean Plt Volume 9.8 fL Unknown COMPLETE BLOOD COUNT 1997001 Neut Auto 48.1 % 0 Unknown COMPLETE BLOOD COUNT [id number] Lymph Auto 36.5 % 09/29/19 20 Unknown COMPLETE BLOOD COUNT [id number] Baker Auto 8.6 % 0 Unknown COMPLETE BLOOD COUNT 5342424 RDW 13.4 % 0 Unknown COMPLETE BLOOD COUNT 9301060 Eos Auto 6.5 % 0 Unknown COMPLETE BLOOD COUNT 8478434 Baso Auto 0.3 % 0 Unknown COMPLETE BLOOD COUNT 9506975 Neutrophil Abs 3.37 10e9/L Unknown COMPLETE BLOOD COUNT [id number] Lymphocyte Abs 2.56 10e9/L Unknown COMPLETE BLOOD COUNT [id number] Monocyte Abs 0.60 10e9/L 09/11 Unknown COMPLETE BLOOD COUNT [id number] Eosinophil Abs 0.46 10e9/L Unknown COMPLETE BLOOD COUNT [id number] RDW-SD 45.9 fL 0 Unknown COMPLETE BLOOD COUNT [id number] Basophil Abs 0.02 10e9/L 09/11 Unknown LIPID GROUP 14835 Cholesterol 248 mg/dL 09/29/2019 Unkno wn LIPID GROUP 05979 Triglyceride 898 mg/dL 09/29/2019 Unkn own LIPID GROUP 15558 HDL CHOLESTEROL 41 mg/dL 09/29/2019 U nknown LIPID GROUP 68601 Chol/HDL Ratio 6.05 ratio 09/29/2019 U nknown LIPID GROUP 38417 NON-HDL Chol 207 mg/dL 09/29/2019 Unkn own LIPID GROUP 50401 LDL Cholesterol N/A Trig >400 020 Unknown GLYCOSYLATED HEMOGLOBIN TEST 02106 Hgb A1c 67291-0 13.2 % 0 09/29/2019 Unknown FREE T4 73247 T4 Free 0.75 ng/dL 09/29/2019 Unknown GFR CALC 0700362 GFR Non Afr Amr >60 mL/min 09/29/2019 Un known GFR CALC 1277696 GFR Afr Amr >60 mL/min 09/29/2019 Unknow n THYROID STIMULATING HORMONE 45872 TSH 4.245 uIU/mL 09/29/2019 Unknown COMPLETE BLOOD COUNT 0089511 WBC 10.7 10e9/L 018 Unknown COMPLETE BLOOD COUNT [id number] RBC 4.59 10e12/L 2017 Unknown COMPLETE BLOOD COUNT 8775519 HEMOGLOBIN 14.8 g/dL 12/11/19 18 Unknown COMPLETE BLOOD COUNT 7035174 HEMATOCRIT 44.9 % 12/11/19 18 Unknown COMPLETE BLOOD COUNT 9564169 MCV 97.8 fL 8 Unknown COMPLETE BLOOD COUNT 9784824 MCH 32.2 pg 8 Unknown COMPLETE BLOOD COUNT 7687911 MCHC 33.0 g/dL 8 Unknown COMPLETE BLOOD COUNT 0054157 PLATELET COUNT 261 10e9/L 10/2017 Unknown COMPLETE BLOOD COUNT 9858382 Mean Plt Volume 9.5 fL 10/2017 Unknown COMPLETE BLOOD COUNT 1801837 Neut Auto 59.9 % 8 Unknown COMPLETE BLOOD COUNT 1500977 Lymph Auto 27.4 % 12/11/19 18 Unknown COMPLETE BLOOD COUNT 0623789 Baker Auto 8.2 % 8 Unknown COMPLETE BLOOD COUNT 1557779 RDW 13.3 % 8 Unknown COMPLETE BLOOD COUNT 2893548 Eos Auto 4.1 % 8 Unknown COMPLETE BLOOD COUNT 4920141 Baso Auto 0.4 % 8 Unknown COMPLETE BLOOD COUNT 6222520 Neutrophil Abs 6.41 10e9/L Unknown COMPLETE BLOOD COUNT [id number] Lymphocyte Abs 2.93 10e9/L Unknown COMPLETE BLOOD COUNT 5578143 Monocyte Abs 0.88 10e9/L 10/2017 Unknown COMPLETE BLOOD COUNT 5668213 Eosinophil Abs 0.44 10e9/L Unknown COMPLETE BLOOD COUNT 7176140 RDW-SD 46.2 fL 8 Unknown COMPLETE BLOOD COUNT [id number] Basophil Abs 0.04 10e9/L 10/2017 Unknown THYROID STIMULATING HORMONE 45482 TSH 4.015 uIU/mL 12/10/2017 Unknown COMPREHENSIVE METABOLIC 06079 AST 25 U/L 2017 Unknown COMPREHENSIVE METABOLIC 66663 ALT 17 U/L 2017 Unknown COMPREHENSIVE METABOLIC 11536 BUN 19 mg/dL 2017 Unknown COMPREHENSIVE METABOLIC 31503 ALBUMIN 4.0 g/dL 2017 Unknown COMPREHENSIVE METABOLIC 83966 CHLORIDE 91 mmol/L 2017 Unknown COMPREHENSIVE METABOLIC 14888 Bili Total 0.5 mg/dL 12/10 Unknown COMPREHENSIVE METABOLIC 90386 ALK PHOS 75 U/L 2017 Unknown COMPREHENSIVE METABOLIC 77106 SODIUM 136 mmol/L 12/10 Unknown COMPREHENSIVE METABOLIC 43772 CREATININE 1.05 mg/dL 10/2017 Unknown COMPREHENSIVE METABOLIC 67016 CALCIUM 8.9 mg/dL 2017 Unknown COMPREHENSIVE METABOLIC 88372 POTASSIUM 3.4 mmol/L 12/10 Unknown COMPREHENSIVE METABOLIC 17008 Total Protein 6.5 g/dL Unknown COMPREHENSIVE METABOLIC 24834 Glucose 138 mg/dL 2017 Unknown COMPREHENSIVE METABOLIC 90604 Bicarbonate 35 mmol/L 10/2017 Unknown COMPREHENSIVE METABOLIC 11514 AGAP 10 mmol/L 2017 Unknown MEAN GLUC 4108625 Calc Mean Gluc 171 mg/dL 12/10/2017 Unkn own LIPID GROUP 55244 Cholesterol 204 mg/dL 12/10/2017 Unkno wn LIPID GROUP 28224 Triglyceride 411 mg/dL 12/10/2017 Unkn own LIP[facility] GROUP 48077 HDL CHOLESTEROL 50 mg/dL 12/10/2017 U nknown LIP[facility] GROUP 47482 Chol/HDL Ratio 4.08 ratio 12/10/2017 U nknown LIP[facility] GROUP 54752 NON-HDL Chol 154 mg/dL 12/10/2017 Unkn own LIPID GROUP 79280 LDL Cholesterol N/A Trig >400 018 Unknown GLYCOSYLATED HEMOGLOBIN TEST 80112 Hgb A1c 92373-0 7.6 % 0 12/10/2017 Unknown FREE T4 06880 T4 Free 1.40 ng/dL 12/10/2017 Unknown GFR CALC 9069909 GFR Non Afr Amr 55 mL/min 12/10/2017 Unk nown GFR CALC 4324884 GFR Afr Amr >60 mL/min 12/10/2017 Unknow n GFR CALC 5071322 GFR Non Afr Amr 48 mL/min 06/28/2017 Unk nown GFR CALC 0721104 GFR Afr Amr 59 mL/min 06/28/2017 Unknown COMPREHENSIVE METABOLIC 54956 AST 32 U/L 2016 Unknown COMPREHENSIVE METABOLIC 93894 ALT 22 U/L 2016 Unknown COMPREHENSIVE METABOLIC 61821 BUN 23 mg/dL 2016 Unknown COMPREHENSIVE METABOLIC 01363 ALBUMIN 4.7 g/dL 2016 Unknown COMPREHENSIVE METABOLIC 52557 CHLORIDE 89 mmol/L 2016 Unknown COMPREHENSIVE METABOLIC 69718 Bili Total 0.5 mg/dL 06/28 Unknown COMPREHENSIVE METABOLIC 26770 ALK PHOS 90 U/L 2016 Unknown COMPREHENSIVE METABOLIC 82095 SODIUM 135 mmol/L 06/28 Unknown COMPREHENSIVE METABOLIC 41025 CREATININE 1.18 mg/dL 06/10 Unknown COMPREHENSIVE METABOLIC 83605 CALCIUM 9.7 mg/dL 2016 Unknown COMPREHENSIVE METABOLIC 90110 POTASSIUM 3.5 mmol/L 06/28 Unknown COMPREHENSIVE METABOLIC 24161 Total Protein 7.7 g/dL Unknown [facility]PRE[facility] METABOLIC 64527 Glucose 129 mg/dL 2016 Unknown COMPREHENSIVE METABOLIC 03099 Bicarbonate 34 mmol/L 06/10 Unknown COMPREHENSIVE METABOLIC 54336 AGAP 12 mmol/L 2016 Unknown [facility] GROUP 38629 HDL TEST 64 MG/DL 08/27/2014 Unknown L[facility] GROUP 97081 TRIG 222 MG/DL 08/27/2014 Unknown [facility] 39148 TEST LDL 209 MG/DL 08/27/2014 Unknown L[facility] GROUP 89227 CHOL 317 MG/DL 08/27/2014 Unknown [facility] 52209 RCHOL/HDL 4.95 RATIO 08/27/2014 Unknow n LIP[facility] GROUP 72010 NON-HDL CH 253 MG/DL 08/27/2014 Unknow n GFR CALC 4402798 GFR AA >60 ML/MIN 08/27/2014 Unknown GFR CALC 3444967 GFR NON-AA >60 ML/MIN 08/27/2014 Unknown COMPLETE BLOOD COUNT 5935811 WBC 7.0 10e9/L 08/27/20 14 Unknown COMPLETE BLOOD COUNT 1689788 RBC 4.98 10e12/L 2013 Unknown COMPLETE BLOOD COUNT 4605241 HGB 15.6 g/dL 4 Unknown COMPLETE BLOOD COUNT 8084253 HCT DET 46.5 % 4 Unknown COMPLETE BLOOD COUNT 0867982 MCV 93.4 fL 4 Unknown COMPLETE BLOOD COUNT 4175023 MCH 31.3 pg 4 Unknown COMPLETE BLOOD COUNT 0842922 MCHC 33.5 g/dL 4 Unknown COMPLETE BLOOD COUNT 2088892 PLT 309 10e9/L 08/27/20 14 Unknown COMPLETE BLOOD COUNT 4837944 MPV 9.6 fL 4 Unknown COMPLETE BLOOD COUNT 9805006 CADEN % 57.2 % 4 Unknown COMPLETE BLOOD COUNT 6516717 LY % 33.2 % 4 Unknown COMPLETE BLOOD COUNT 2560239 MON % 7.3 % 4 Unknown COMPLETE BLOOD COUNT 1531386 EOS % 2.0 % 4 Unknown COMPLETE BLOOD COUNT 2954741 BASO % 0.3 % 4 Unknown COMPLETE BLOOD COUNT 7179449 RDW 13.7 % 4 Unknown COMPLETE BLOOD COUNT [id number] ABS CADEN 4.00 10e9/L 014 Unknown COMPLETE BLOOD COUNT [id number] ABS LYMPH 2.32 10e9/L 014 Unknown COMPLETE BLOOD COUNT 6635352 ABS MONO 0.51 10e9/L 014 Unknown COMPLETE BLOOD COUNT 8015975 ABS EOS 0.14 10e9/L 014 Unknown COMPLETE BLOOD COUNT [id number] ABS BASO 0.02 10e9/L 014 Unknown COMPLETE BLOOD COUNT 5672460 RDW-SD 45.1 fL 4 Unknown COMPREHENSIVE METABOLIC 29083 AST 13 U/L 2013 Unknown COMPREHENSIVE METABOLIC 82359 ALT 11 IU/L 2013 Unknown COMPREHENSIVE METABOLIC 00107 BUN 23 MG/DL 2013 Unknown COMPREHENSIVE METABOLIC 29510 ALBUMIN 4.4 GM/DL 2013 Unknown COMPREHENSIVE METABOLIC 66880 CHLORIDE 99 MMOL/L 2013 Unknown COMPREHENSIVE METABOLIC 05326 BILI TOT 0.5 MG/DL 2013 Unknown COMPREHENSIVE METABOLIC 47617 ALK PHOS 56 U/L 2013 Unknown COMPREHENSIVE METABOLIC 14002 SODIUM 138 MMOL/L 08/27 Unknown COMPREHENSIVE METABOLIC 08559 CREATININE 0.95 MG/DL 08/10 Unknown COMPREHENSIVE METABOLIC 52144 CALCIUM 9.8 MG/DL 2013 Unknown COMPREHENSIVE METABOLIC 86836 POTASSIUM 3.5 MMOL/L 08/27 Unknown COMPREHENSIVE METABOLIC 31570 PROT TOT 6.8 GM/DL 2013 Unknown COMPREHENSIVE METABOLIC 42909 Glucose 90 MG/DL 2013 Unknown COMPREHENSIVE METABOLIC 32020 BICARB 34 MMOL/L 2013 Unknown COMPREHENSIVE METABOLIC 41748 ANION GAP 5 MEQ/L 2013 Unknown LIPASE 10369 LIPASE 11 IU/L 07/21/2014 Unknown AMYLASE 78422 AMYLASE 39 IU/L 07/21/2014 Unknown HEMOGLOBIN A1C (GLYCOSYLATED) 9615243 A1C [facility] 89294-6 6.2 % 03/05/2013 Unknown THYROID STIMULATING HORMONE 84102 TSH 6.986 uIU/ML 03/05/2013 Unknown COMPLETE BLOOD COUNT 0690862 WBC 12.7 10e9/L 013 Unknown COMPLETE BLOOD COUNT 0388146 RBC 4.53 10e12/L 2012 Unknown COMPLETE BLOOD COUNT 8177884 HGB 14.7 g/dL 3 Unknown COMPLETE BLOOD COUNT 6144233 HCT DET 43.1 % 3 Unknown COMPLETE BLOOD COUNT 8034952 MCV 95.1 fL 3 Unknown COMPLETE BLOOD COUNT 6017211 MCH 32.5 pg 3 Unknown COMPLETE BLOOD COUNT 0233196 MCHC 34.1 g/dL 3 Unknown COMPLETE BLOOD COUNT [id number] PLT 346 10e9/L 03/05/20 13 Unknown COMPLETE BLOOD COUNT 5650913 MPV 9.5 fL 3 Unknown COMPLETE BLOOD COUNT 7005205 CADEN % 67.6 % 3 Unknown COMPLETE BLOOD COUNT 5395668 LY % 22.1 % 3 Unknown COMPLETE BLOOD COUNT 4922671 MON % 6.6 % 3 Unknown COMPLETE BLOOD COUNT 9723967 EOS % 3.3 % 3 Unknown COMPLETE BLOOD COUNT 6208517 BASO % 0.4 % 3 Unknown COMPLETE BLOOD COUNT 3366877 RDW 14.0 % 3 Unknown COMPLETE BLOOD COUNT 9745970 ABS CADEN 8.59 10e9/L 013 Unknown COMPLETE BLOOD COUNT 0965118 ABS LYMPH 2.81 10e9/L 013 Unknown COMPLETE BLOOD COUNT 6912283 ABS MONO 0.84 10e9/L 013 Unknown COMPLETE BLOOD COUNT 7209172 ABS EOS 0.42 10e9/L 013 Unknown COMPLETE BLOOD COUNT 8845140 ABS BASO 0.05 10e9/L 013 Unknown COMPLETE BLOOD COUNT 3147414 RDW-SD 46.0 fL 3 Unknown FREE T4 09674 FREE T4 1.14 NG/DL 03/05/2013 Unknown COMPREHENSIVE METABOLIC 22061 AST 17 U/L 2012 Unknown COMPREHENSIVE METABOLIC 30346 ALT 12 IU/L 2012 Unknown COMPREHENSIVE METABOLIC 78738 BUN 24 MG/DL 2012 Unknown COMPREHENSIVE METABOLIC 84844 ALBUMIN 4.2 GM/DL 2012 Unknown COMPREHENSIVE METABOLIC 93762 CHLORIDE 93 MMOL/L 2012 Unknown COMPREHENSIVE METABOLIC 95722 BILI TOT 0.5 MG/DL 2012 Unknown COMPREHENSIVE METABOLIC 42790 ALK PHOS 75 U/L 2012 Unknown COMPREHENSIVE METABOLIC 55507 SODIUM 141 MMOL/L 03/05 Unknown COMPREHENSIVE METABOLIC 90957 CREATININE 1.36 MG/DL 02/09 Unknown COMPREHENSIVE METABOLIC 66654 CALCIUM 9.2 MG/DL 2012 Unknown COMPREHENSIVE METABOLIC 30889 POTASSIUM 3.1 MMOL/L 03/05 Unknown COMPREHENSIVE METABOLIC 42701 PROT TOT 6.9 GM/DL 2012 Unknown COMPREHENSIVE METABOLIC 75754 Glucose 123 MG/DL 2012 Unknown COMPREHENSIVE METABOLIC 22534 BICARB 36 MMOL/L 2012 Unknown COMPREHENSIVE METABOLIC 59681 ANION GAP 12 MEQ/L 2012 Unknown GFR CALC 3597006 GFR AA 51.0L ML/MIN 03/05/2013 Unknow n GFR CALC 5727154 GFR NON-AA 42.0L ML/MIN 03/05/2013 Unkno wn COMPREHENSIVE METABOLIC 13011 AST 14 U/L 2012 Unknown COMPREHENSIVE METABOLIC 16162 ALT 11 IU/L 2012 Unknown COMPREHENSIVE METABOLIC 01657 BUN 16 MG/DL 2012 Unknown COMPREHENSIVE METABOLIC 67832 ALBUMIN 4.2 GM/DL 2012 Unknown COMPREHENSIVE METABOLIC 32515 CHLORIDE 98 MMOL/L 2012 Unknown COMPREHENSIVE METABOLIC 24311 BILI TOT 0.4 MG/DL 2012 Unknown COMPREHENSIVE METABOLIC 33894 ALK PHOS 77 U/L 2012 Unknown COMPREHENSIVE METABOLIC 64359 SODIUM 139 MMOL/L 09/25 Unknown COMPREHENSIVE METABOLIC 50094 CREATININE 0.86 MG/DL 09/10 Unknown COMPREHENSIVE METABOLIC 06414 CALCIUM 9.5 MG/DL 2012 Unknown COMPREHENSIVE METABOLIC 53525 POTASSIUM 3.8 MMOL/L 09/25 Unknown COMPREHENSIVE METABOLIC 21310 PROT TOT 6.8 GM/DL 2012 Unknown COMPREHENSIVE METABOLIC 84517 Glucose 91 MG/DL 2012 Unknown COMPREHENSIVE METABOLIC 87237 BICARB 32 MMOL/L 2012 Unknown COMPREHENSIVE METABOLIC 84219 ANION GAP 9 MEQ/L 2012 Unknown FREE T4 09156 FREE T4 0.98 NG/DL 09/25/2012 Unknown THYROID STIMULATING HORMONE 38160 TSH 1.736 uIU/ML 09/25/2012 Unknown C-REACTIVE PROTEIN (CRP) QUANT 14807 CRP 2.3 MG/DL 09/25/2012 Unknown COMPLETE BLOOD COUNT 5930383 WBC 11.9 10e9/L 013 Unknown COMPLETE BLOOD COUNT 3075445 RBC 4.87 10e12/L 2012 Unknown COMPLETE BLOOD COUNT 1534212 HGB 15.1 g/dL 3 Unknown COMPLETE BLOOD COUNT 7920620 HCT DET 44.8 % 3 Unknown COMPLETE BLOOD COUNT 3495784 MCV 92.0 fL 3 Unknown COMPLETE BLOOD COUNT 7543163 MCH 31.0 pg 3 Unknown COMPLETE BLOOD COUNT 2860130 MCHC 33.7 g/dL 3 Unknown COMPLETE BLOOD COUNT 1198332 PLT 343 10e9/L 09/25/19 13 Unknown COMPLETE BLOOD COUNT 1219693 MPV 9.0 fL 3 Unknown COMPLETE BLOOD COUNT 8546418 CADEN % 68.2 % 3 Unknown COMPLETE BLOOD COUNT 0726294 LY % 22.4 % 3 Unknown COMPLETE BLOOD COUNT 3043314 MON % 6.4 % 3 Unknown COMPLETE BLOOD COUNT 0024361 EOS % 2.7 % 3 Unknown COMPLETE BLOOD COUNT 1681171 BASO % 0.3 % 3 Unknown COMPLETE BLOOD COUNT 2367609 RDW 13.8 % 3 Unknown COMPLETE BLOOD COUNT 7709712 ABS CADEN 8.12 10e9/L 013 Unknown COMPLETE BLOOD COUNT [id number] ABS LYMPH 2.67 10e9/L 013 Unknown COMPLETE BLOOD COUNT 5564459 ABS MONO 0.76 10e9/L 013 Unknown COMPLETE BLOOD COUNT [id number] ABS EOS 0.32 10e9/L 013 Unknown COMPLETE BLOOD COUNT 4881313 ABS BASO 0.04 10e9/L 013 Unknown COMPLETE BLOOD COUNT 0377989 RDW-SD 45.6 fL 3 Unknown GFR CALC 7017982 GFR AA >60 ML/MIN 09/25/2012 Unknown GFR CALC 9109633 GFR NON-AA >60 ML/MIN 09/25/2012 Unknown ERYTHROCYTE SEDIMENTATION RATE 92103 ESR 19 MM/HR 05/06/2012 Unknown VITAMIN B 12 FOLIC ACID 39056|82923 VIT B 12 922 PG/ML 04/11 Unknown VITAMIN B 12 FOLIC ACID 44650|65794 FOLIC ACID 13.6 NG/ML Unknown URIC ACID 83613 URIC ACID 7.8 MG/DL 05/06/2012 Unknown COMPLETE BLOOD COUNT 39129 WBC 11.9 10e9/L 012 Unknown COMPLETE BLOOD COUNT 65137 RBC 5.30 10e12/L 2011 Unknown COMPLETE BLOOD COUNT 10899 HGB 16.6 g/dL 2 Unknown COMPLETE BLOOD COUNT 16574 HCT DET 47.2 % 2 Unknown COMPLETE BLOOD COUNT 04279 MCV 89.1 fL 2 Unknown COMPLETE BLOOD COUNT 64018 MCH 31.3 pg 2 Unknown COMPLETE BLOOD COUNT 70278 MCHC 35.2 g/dL 2 Unknown COMPLETE BLOOD COUNT 67620 PLT 362 10e9/L 05/06/20 12 Unknown COMPLETE BLOOD COUNT 38996 MPV 9.4 fL 2 Unknown COMPLETE BLOOD COUNT 89018 CADEN % 68.2 % 2 Unknown COMPLETE BLOOD COUNT 11043 LY % 22.0 % 2 Unknown COMPLETE BLOOD COUNT 27459 MON % 6.9 % 2 Unknown COMPLETE BLOOD COUNT 05710 EOS % 2.6 % 2 Unknown COMPLETE BLOOD COUNT 93004 BASO % 0.3 % 2 Unknown COMPLETE BLOOD COUNT 13431 RDW 12.8 % 2 Unknown COMPLETE BLOOD COUNT 13008 ABS CADEN 8.12 10e9/L 012 Unknown COMPLETE BLOOD COUNT 18255 ABS LYMPH 2.62 10e9/L 012 Unknown COMPLETE BLOOD COUNT 06507 ABS MONO 0.82 10e9/L 012 Unknown COMPLETE BLOOD COUNT 73493 ABS EOS 0.31 10e9/L 012 Unknown COMPLETE BLOOD COUNT 03203 ABS BASO 0.04 10e9/L 012 Unknown COMPLETE BLOOD COUNT 96188 RDW-SD 41.5 fL 2 Unknown GFR CALC 9139427 GFR AA >60 ML/MIN 05/06/2012 Unknown GFR CALC 3999891 GFR NON-AA 58.0L ML/MIN 05/06/2012 Unkno wn FREE T4 45352 FREE T4 1.15 NG/DL 05/06/2012 Unknown THYROID STIMULATING HORMONE 85132 TSH 1.568 uIU/ML 05/06/2012 Unknown COMPREHENSIVE METABOLIC 49984 AST 20 U/L 2011 Unknown COMPREHENSIVE METABOLIC 56045 ALT 12 IU/L 2011 Unknown COMPREHENSIVE METABOLIC 75943 BUN 20 MG/DL 2011 Unknown COMPREHENSIVE METABOLIC 69077 ALBUMIN 4.5 GM/DL 2011 Unknown COMPREHENSIVE METABOLIC 63354 CHLORIDE 91 MMOL/L 2011 Unknown COMPREHENSIVE METABOLIC 06666 BILI TOT 0.4 MG/DL 2011 Unknown COMPREHENSIVE METABOLIC 98685 ALK PHOS 73 U/L 2011 Unknown COMPREHENSIVE METABOLIC 94132 SODIUM 139 MMOL/L 05/06 Unknown COMPREHENSIVE METABOLIC 22054 CREATININE 1.02 MG/DL 04/11 Unknown COMPREHENSIVE METABOLIC 79266 CALCIUM 9.7 MG/DL 2011 Unknown COMPREHENSIVE METABOLIC 23139 POTASSIUM 3.1 MMOL/L 05/06 Unknown COMPREHENSIVE METABOLIC 26660 PROT TOT 7.3 GM/DL 2011 Unknown COMPREHENSIVE METABOLIC 24450 Glucose 118 MG/DL 2011 Unknown COMPREHENSIVE METABOLIC 51369 BICARB 33 MMOL/L 2011 Unknown COMPREHENSIVE METABOLIC 60166 ANION GAP 15 MEQ/L 2011 Unknown Procedures Procedure Codes Date ROUTINE VENIPUNCTURE CPT-4: 06496 09/29/2019 URINALYSIS NONAUTO W/O SCOPE CPT-4: 32641 09/29/2019 COMPREHEN METABOLIC PANEL CPT-4: 05145 09/29/2019 LIPID PANEL CPT-4: 65543 09/29/2019 A1C HPLC CPT-4: 39467 09/29/2019 ASSAY OF FREE THYROXINE CPT-4: 62019 09/29/2019 ASSAY THYROID STIM HORMONE CPT-4: 11151 09/29/2019 COMPLETE CBC W/AUTO DIFF WBC CPT-4: 16185 09/29/2019 URINALYSIS NONAUTO W/O SCOPE CPT-4: 45786 09/30/2018 MICROALBUMIN QUANTITATIVE CPT-4: 21205 09/30/2018 CEFTRIAXONE SODIUM INJECTION CPT-4: J0696 06/19/2018 THER/PROPH/DIAG INJ SC/IM CPT-4: 25823 06/19/2018 CEFTRIAXONE SODIUM INJECTION CPT-4: J0696 06/17/2018 THER/PROPH/DIAG INJ SC/IM CPT-4: 11142 06/17/2018 THER/PROPH/DIAG INJ SC/IM CPT-4: 69200 05/16/2018 KETOROLAC TROMETHAMINE INJ CPT-4: J1885 05/16/2018 ONDANSETRON HCL INJECTION CPT-4: J2405 05/16/2018 THER/PROPH/DIAG INJ SC/IM CPT-4: 31892 05/16/2018 ROUTINE VENIPUNCTURE CPT-4: 38440 03/20/2018 COMPREHEN METABOLIC PANEL CPT-4: 04709 03/20/2018 DEXAMETHASONE SODIUM PHOS CPT-4: J1100 02/11/2018 THER/PROPH/DIAG INJ SC/IM CPT-4: 25700 02/11/2018 TRIAMCINOLONE ACET INJ NOS CPT-4: J3301 02/11/2018 CEFTRIAXONE SODIUM INJECTION CPT-4: J0696 02/01/2018 THER/PROPH/DIAG INJ SC/IM CPT-4: 35719 02/01/2018 CEFTRIAXONE SODIUM INJECTION CPT-4: J0696 01/30/2018 THER/PROPH/DIAG INJ SC/IM CPT-4: 17881 01/30/2018 ROUTINE VENIPUNCTURE CPT-4: 95800 12/10/2017 ASSAY OF FREE THYROXINE CPT-4: 31224 12/10/2017 ASSAY THYROID STIM HORMONE CPT-4: 03078 12/10/2017 COMPREHEN METABOLIC PANEL CPT-4: 82202 12/10/2017 COMPLETE CBC W/AUTO DIFF WBC CPT-4: 10720 12/10/2017 LIPID PANEL CPT-4: 03403 12/10/2017 A1C HPLC CPT-4: 81181 12/10/2017 CEFTRIAXONE SODIUM INJECTION CPT-4: J0696 12/10/2017 THER/PROPH/DIAG INJ SC/IM CPT-4: 64821 12/10/2017 CEFTRIAXONE SODIUM INJECTION CPT-4: J0696 12/07/2017 THER/PROPH/DIAG INJ SC/IM CPT-4: 46549 12/07/2017 DEXAMETHASONE SODIUM PHOS CPT-4: J1100 12/07/2017 THER/PROPH/DIAG INJ SC/IM CPT-4: 37967 12/07/2017 CEFTRIAXONE SODIUM INJECTION CPT-4: J0696 10/08/2017 THER/PROPH/DIAG INJ SC/IM CPT-4: 97442 10/08/2017 CEFTRIAXONE SODIUM INJECTION CPT-4: J0696 09/21/2017 THER/PROPH/DIAG INJ SC/IM CPT-4: 55493 09/21/2017 CEFTRIAXONE SODIUM INJECTION CPT-4: J0696 09/20/2017 THER/PROPH/DIAG INJ SC/IM CPT-4: 70933 09/20/2017 REMOVAL OF NAIL PLATE CPT-4: 00808 08/29/2017 THER/PROPH/DIAG INJ SC/IM CPT-4: 61587 08/29/2017 TRIAMCINOLONE ACET INJ NOS CPT-4: J3301 08/29/2017 CEFTRIAXONE SODIUM INJECTION CPT-4: J0696 08/29/2017 THER/PROPH/DIAG INJ SC/IM CPT-4: 32419 08/29/2017 DESTRUCT PREMALG LESION (Cryosurgery) CPT-4: 40775 ROUTINE VENIPUNCTURE CPT-4: 07048 06/27/2017 ASSAY OF FREE THYROXINE CPT-4: 36743 06/27/2017 ASSAY THYROID STIM HORMONE CPT-4: 85478 06/27/2017 COMPREHEN METABOLIC PANEL CPT-4: 08972 06/27/2017 COMPLETE CBC W/AUTO DIFF WBC CPT-4: 62432 06/27/2017 EXC TR-EXT B9+REECE 0.5 CM< CPT-4: 26197 01/24/2017 THER/PROPH/DIAG INJ SC/IM CPT-4: 41580 08/02/2016 DEXAMETHASONE SODIUM PHOS CPT-4: J1100 08/02/2016 DESTRUCT PREMALG LESION (Cryosurgery) CPT-4: 80279 EXC TR-EXT B9+REECE 0.5 CM< CPT-4: 33927 08/01/2016 AEROBIC WOUND CULTURE & STN CPT-4: 83168 07/06/2016 CEFTRIAXONE SODIUM INJECTION CPT-4: J0696 05/25/2016 THER/PROPH/DIAG INJ SC/IM CPT-4: 46126 05/25/2016 THER/PROPH/DIAG INJ SC/IM CPT-4: 23444 04/26/2016 DEXAMETHASONE SODIUM PHOS CPT-4: J1100 04/26/2016 CEFTRIAXONE SODIUM INJECTION CPT-4: J0696 04/26/2016 THER/PROPH/DIAG INJ SC/IM CPT-4: 01462 04/26/2016 THER/PROPH/DIAG INJ SC/IM CPT-4: 00671 02/09/2016 TRIAMCINOLONE ACET INJ NOS CPT-4: J3301 02/09/2016 URINALYSIS NONAUTO W/O SCOPE CPT-4: 73225 01/24/2016 URINE CULTURE/ COLONY COUNT CPT-4: 61982 01/24/2016 THER/PROPH/DIAG INJ SC/IM CPT-4: 58153 12/08/2015 TRIAMCINOLONE ACET INJ NOS CPT-4: J3301 12/08/2015 THER/PROPH/DIAG INJ SC/IM CPT-4: 14321 10/07/2015 TRIAMCINOLONE ACET INJ NOS CPT-4: J3301 10/07/2015 DESTRUCT PREMALG LESION (Cryosurgery) CPT-4: 41875 THER/PROPH/DIAG INJ SC/IM CPT-4: 07990 03/16/2015 METHYLPREDNISOLONE 40 MG INJ CPT-4: J1030 03/16/2015 DESTRUCT PREMALG LESION (Cryosurgery) CPT-4: 76411 THER/PROPH/DIAG INJ SC/IM CPT-4: 52838 09/11/2014 METHYLPREDNISOLONE 40 MG INJ CPT-4: J1030 09/11/2014 TRIAMCINOLONE ACET INJ NOS CPT-4: J3301 09/11/2014 CEFTRIAXONE SODIUM INJECTION CPT-4: J0696 09/11/2014 THER/PROPH/DIAG INJ SC/IM CPT-4: 24504 09/11/2014 ROUTINE VENIPUNCTURE CPT-4: 49390 08/27/2014 COMPREHEN METABOLIC PANEL CPT-4: 87789 08/27/2014 COMPLETE CBC W/AUTO DIFF WBC CPT-4: 44980 08/27/2014 LIPID PANEL CPT-4: 22641 08/27/2014 ROUTINE VENIPUNCTURE CPT-4: 99600 07/21/2014 ASSAY OF AMYLASE CPT-4: 91712 07/21/2014 ASSAY OF LIPASE CPT-4: 76873 07/21/2014 THER/PROPH/DIAG INJ SC/IM CPT-4: 67790 07/15/2014 TRIAMCINOLONE ACET INJ NOS CPT-4: J3301 07/15/2014 ROUTINE VENIPUNCTURE CPT-4: 62695 05/14/2014 ASSAY OF FREE THYROXINE CPT-4: 79353 05/14/2014 ASSAY THYROID STIM HORMONE CPT-4: 02079 05/14/2014 COMPREHEN METABOLIC PANEL CPT-4: 53016 05/14/2014 COMPLETE CBC W/AUTO DIFF WBC CPT-4: 70815 05/14/2014 LIPID PANEL CPT-4: 14739 05/14/2014 CEFTRIAXONE SODIUM INJECTION CPT-4: J0696 04/21/2014 THER/PROPH/DIAG INJ SC/IM CPT-4: 28201 04/21/2014 THER/PROPH/DIAG INJ SC/IM CPT-4: 88181 04/21/2014 TRIAMCINOLONE ACET INJ NOS CPT-4: J3301 04/21/2014 THER/PROPH/DIAG INJ SC/IM CPT-4: 81108 03/04/2014 METHYLPREDNISOLONE 40 MG INJ CPT-4: J1030 03/04/2014 TRIAMCINOLONE ACET INJ NOS CPT-4: J3301 03/04/2014 CEFTRIAXONE SODIUM INJECTION CPT-4: J0696 03/04/2014 THER/PROPH/DIAG INJ SC/IM CPT-4: 07610 03/04/2014 TDAP VACCINE 7 YRS/> IM CPT-4: 66318 02/27/2014 IMMUNIZATION ADMIN CPT-4: 91056 02/27/2014 DESTRUCT PREMALG LESION (Cryosurgery) CPT-4: 01289 DESTRUCT PREMALG LES 2-14 CPT-4: 08990 01/13/2014 THER/PROPH/DIAG INJ SC/IM CPT-4: 06407 10/21/2013 METHYLPREDNISOLONE 40 MG INJ CPT-4: J1030 10/21/2013 TRIAMCINOLONE ACET INJ NOS CPT-4: J3301 10/21/2013 CEFTRIAXONE SODIUM INJECTION CPT-4: J0696 08/27/2013 THER/PROPH/DIAG INJ SC/IM CPT-4: 34714 08/27/2013 THER/PROPH/DIAG INJ SC/IM CPT-4: 56553 08/27/2013 METHYLPREDNISOLONE 40 MG INJ CPT-4: J1030 08/27/2013 TRIAMCINOLONE ACET INJ NOS CPT-4: J3301 08/27/2013 THER/PROPH/DIAG INJ SC/IM CPT-4: 30393 06/23/2013 METHYLPREDNISOLONE 40 MG INJ CPT-4: J1030 06/23/2013 TRIAMCINOLONE ACET INJ NOS CPT-4: J3301 06/23/2013 THER/PROPH/DIAG INJ SC/IM CPT-4: 62936 05/26/2013 METHYLPREDNISOLONE 40 MG INJ CPT-4: J1030 05/26/2013 TRIAMCINOLONE ACET INJ NOS CPT-4: J3301 05/26/2013 ROUTINE VENIPUNCTURE CPT-4: 38043 03/05/2013 ASSAY OF FREE THYROXINE CPT-4: 02504 03/05/2013 ASSAY THYROID STIM HORMONE CPT-4: 90844 03/05/2013 COMPREHEN METABOLIC PANEL CPT-4: 59479 03/05/2013 COMPLETE CBC W/AUTO DIFF WBC CPT-4: 28406 03/05/2013 A1C GLYCOSYLATED HEMOGLOBIN TEST CPT-4: 67942 013 DRAIN/INJECT JOINT/BURSA CPT-4: 87093 12/04/2012 METHYLPREDNISOLONE 40 MG INJ CPT-4: J1030 12/04/2012 TRIAMCINOLONE ACET INJ NOS CPT-4: J3301 12/04/2012 CEFTRIAXONE SODIUM INJECTION CPT-4: J0696 11/21/2012 THER/PROPH/DIAG INJ SC/IM CPT-4: 30779 11/21/2012 THER/PROPH/DIAG INJ SC/IM CPT-4: 31808 10/14/2012 METHYLPREDNISOLONE 40 MG INJ CPT-4: J1030 10/14/2012 TRIAMCINOLONE ACET INJ NOS CPT-4: J3301 10/14/2012 URINALYSIS NONAUTO W/O SCOPE CPT-4: 15920 09/27/2012 ROUTINE VENIPUNCTURE CPT-4: 04035 09/25/2012 ASSAY OF FREE THYROXINE CPT-4: 02237 09/25/2012 ASSAY THYROID STIM HORMONE CPT-4: 17601 09/25/2012 COMPREHEN METABOLIC PANEL CPT-4: 93729 09/25/2012 COMPLETE CBC W/AUTO DIFF WBC CPT-4: 21293 09/25/2012 C-REACTIVE PROTEIN CPT-4: 18122 09/25/2012 THER/PROPH/DIAG INJ SC/IM CPT-4: 92836 08/29/2012 METHYLPREDNISOLONE 40 MG INJ CPT-4: J1030 08/29/2012 TRIAMCINOLONE ACET INJ NOS CPT-4: J3301 08/29/2012 DESTRUCT PREMALG LESION (Cryosurgery) CPT-4: 50769 THER/PROPH/DIAG INJ SC/IM CPT-4: 18924 05/06/2012 METHYLPREDNISOLONE 40 MG INJ CPT-4: J1030 05/06/2012 TRIAMCINOLONE ACET INJ NOS CPT-4: J3301 05/06/2012 VITAMIN B 12 FOLIC ACID CPT-4: 54379|79001 05/06/2012 RBC SED RATE AUTOMATED CPT-4: 02319 05/06/2012 ROUTINE VENIPUNCTURE CPT-4: 26958 05/06/2012 ASSAY OF FREE THYROXINE CPT-4: 81678 05/06/2012 ASSAY THYROID STIM HORMONE CPT-4: 80887 05/06/2012 COMPREHEN METABOLIC PANEL CPT-4: 00053 05/06/2012 COMPLETE CBC W/AUTO DIFF WBC CPT-4: 16051 05/06/2012 ASSAY OF BLOOD/URIC ACID CPT-4: 43533 05/06/2012 THER/PROPH/DIAG INJ SC/IM CPT-4: 69880 03/19/2012 KETOROLAC TROMETHAMINE INJ CPT-4: J1885 03/19/2012 KETOROLAC TROMETHAMINE INJ CPT-4: J1885 01/30/2012 THER/PROPH/DIAG INJ SC/IM CPT-4: 16268 01/30/2012 PROMETHAZINE HCL INJECTION CPT-4: J2550 01/30/2012 THER/PROPH/DIAG INJ SC/IM CPT-4: 21422 01/24/2012 METHYLPREDNISOLONE 40 MG INJ CPT-4: J1030 01/24/2012 TRIAMCINOLONE ACET INJ NOS CPT-4: J3301 01/24/2012 THER/PROPH/DIAG INJ SC/IM CPT-4: 04323 09/13/2011 KETOROLAC TROMETHAMINE INJ CPT-4: J1885 09/13/2011 THER/PROPH/DIAG INJ SC/IM CPT-4: 39191 09/13/2011 PROMETHAZINE HCL INJECTION CPT-4: J2550 09/13/2011 CEFTRIAXONE SODIUM INJECTION CPT-4: J0696 07/20/2011 THER/PROPH/DIAG INJ SC/IM CPT-4: 75901 07/20/2011 THER/PROPH/DIAG INJ SC/IM CPT-4: 18013 07/20/2011 METHYLPREDNISOLONE INJECTION CPT-4: J2930 07/20/2011 URINALYSIS NONAUTO W/O SCOPE CPT-4: 79754 05/09/2011 CEFTRIAXONE SODIUM INJECTION CPT-4: J0696 05/09/2011 THER/PROPH/DIAG INJ SC/IM CPT-4: 26362 05/09/2011 THER/PROPH/DIAG INJ SC/IM CPT-4: 42450 05/09/2011 PROMETHAZINE HCL INJECTION CPT-4: J2550 05/09/2011 HYDRATION IV INFUSION INIT CPT-4: 92676 05/09/2011 DESTRUCT PREMALG LESION (Cryosurgery) CPT-4: 61070 DESTRUCT PREMALG LES 2-14 CPT-4: 74163 07/19/2010 REMOVAL OF SKIN TAGS <W/15 CPT-4: 45348 05/30/2010 THER/PROPH/DIAG INJ SC/IM CPT-4: 07494 04/05/2010 CEFTRIAXONE SODIUM INJECTION CPT-4: J0696 04/05/2010 TRIAMCINOLONE ACET INJ NOS CPT-4: J3301 04/05/2010 METHYLPREDNISOLONE 40 MG INJ CPT-4: J1030 04/05/2010 THER/PROPH/DIAG INJ SC/IM CPT-4: 42067 04/05/2010 TRIAMCINOLONE ACET INJ NOS CPT-4: J3301 03/09/2010 METHYLPREDNISOLONE 40 MG INJ CPT-4: J1030 03/09/2010 THER/PROPH/DIAG INJ SC/IM CPT-4: 01870 03/09/2010 THER/PROPH/DIAG INJ SC/IM CPT-4: 31034 03/09/2010 CEFTRIAXONE SODIUM INJECTION CPT-4: J0696 03/09/2010 Vital Signs Date Vital 10/07/2019 Blood Pressure 1: 134/82 Code: 8480-6 Heart Rate 1: 105 bpm Respiratory Rate: 17 bpm SpO2: 96% Temperature: 36.8 (C) / 98.2 (F) We ight: 198 lbs 09/30/2019 Blood Pressure 1: 132/80 Code: 8480-6 BMI: 35.8 Code: 30328-7 Heart Rate 1: 88 bpm Height: 5'4" Respiratory Rate: 20 bpm SpO2: 95% Tempera ture: 36.9 (C) / 98.5 (F) Weight: 210 lbs 05/28/2019 Blood Pressure 1: 126/82 Code: 8480-6 BMI: 35.0 Code: 85177-9 Heart Rate 1: 88 bpm Height: 5'4" [...] 1: 128/90 Code: 8480-6 BMI: 37.2 Code: 60609-2 Heart Rate 1: 84 bpm Height: 5'4" Respiratory Rate: 20 bpm SpO2: 95% Tempera ture: 36.6 (C) / 97.8 (F) Weight: 217 lbs 08/27/2018 Blood Pressure 1: 128/88 Code: 8480-6 BMI: 38.3 Code: 79374-6 Heart Rate 1: 84 bpm Height: 5'4" [...] 1: 119/72 Code: 8480-6 BMI: 37.4 Code: 78273-1 Heart Rate 1: 82 bpm Height: 5'4" Respiratory Rate: 12 bpm SpO2: 94% Tempera ture: 35.2 (C) / 95.4 (F) Weight: 218 lbs 12/18/2017 Blood Pressure 1: 128/86 Code: 8480-6 BMI: 37.8 Code: 36616-1 Heart Rate 1: 84 bpm Height: 5'4" [...] 1: 128/82 Code: 8480-6 BMI: 35.5 Code: 25921-1 Heart Rate 1: 84 bpm Height: 5'4" [...] 1: 128/82 Code: 8480-6 BMI: 30.2 Code: 66116-9 Heart Rate 1: 80 bpm Height: 5'4" [...] 1: 128/86 Code: 8480-6 BMI: 32.8 Code: 57168-4 Heart Rate 1: 66 bpm Height: 5'4" Respiratory Rate: 18 bpm Temperature: 36 .3 (C) / 97.3 (F) Weight: 191 lbs 06/23/2013 Blood Pressure 1: 132/94 Code: 8480-6 BMI: 34.0 Code: 39679-3 Heart Rate 1: 84 bpm Height: 5'4" Respiratory Rate: 20 bpm Temperature: 36 .8 (C) / 98.2 (F) Weight: 198 lbs 05/26/2013 Blood Pressure 1: 114/80 Code: 8480-6 BMI: 35.0 Code: 09999-9 Heart Rate 1: 80 bpm Height: 5'4" Respiratory Rate: 20 bpm Temperature: 36 .4 (C) / 97.6 (F) Weight: 204 lbs 04/16/2013 Blood Pressure 1: 114/82 Code: 8480-6 BMI: 36.7 Code: 52962-6 Heart Rate 1: 84 bpm Height: 5'4" Respiratory Rate: 20 bpm Temperature: 36 .7 (C) / 98.0 (F) Weight: 214 lbs 03/05/2013 Blood Pressure 1: 136/90 Code: 8480-6 BMI: 37.1 Code: 90035-0 Heart Rate 1: 84 bpm Height: 5'4" [...] 1: 168/114 Code: 8480-6 BMI: 36.2 Code: 92369-6 Heart Rate 1: 104 bpm Height: 5'4" Respiratory Rate: 20 bpm Temperature: 36 .8 (C) / 98.2 (F) Weight: 211 lbs 11/22/2012 Blood Pressure 1: 128/90 Code: 8480-6 Heart Rate 1: 88 bpm Respiratory Rate: 20 bpm SpO2: 96% Temperature: 36.8 (C) / 98.2 (F) 11/21/2012 Blood Pressure 1: 146/100 Code: 8480-6 BMI: 35.7 Code: 44405-0 Heart Rate 1: 96 bpm Height: 5'4" [...] 1: 138/100 Code: 8480-6 BMI: 35.7 Code: 67984-9 Heart Rate 1: 96 bpm Height: 5'4" Respiratory Rate: 20 bpm Temperature: 36 .8 (C) / 98.2 (F) Weight: 208 lbs 05/06/2012 Blood Pressure 1: 154/102 Code: 8480-6 BMI: 34.7 Code: 58455-4 Heart Rate 1: 116 bpm Height: 5'4" Respiratory Rate: 20 bpm Temperature: 36 .8 (C) / 98.2 (F) Weight: 202 lbs 04/03/2012 Blood Pressure 1: 134/94 Code: 8480-6 BMI: 34.8 Code: 82527-9 Heart Rate 1: 108 bpm Height: 5'4" Respiratory Rate: 20 bpm Temperature: 36 .8 (C) / 98.2 (F) Weight: 203 lbs 03/19/2012 Blood Pressure 1: 148/106 Code: 8480-6 BMI: 35.0 Code: 22484-3 Heart Rate 1: 100 bpm Height: 5'4" Respiratory Rate: 20 bpm Temperature: 36 .6 (C) / 97.9 (F) Weight: 204 lbs 02/22/2012 Blood Pressure 1: 146/94 Code: 8480-6 He art Rate 1: 88 bpm 02/21/2012 Blood Pressure 1: 172/120 Code: 8480-6 B lood Pressure 2: 152/106 Code: 8480-6 Heart Rate 1: 116 bpm 02/20/2012 Blood Pressure 1: 160/100 Code: 8480-6 BMI: 32.0 Code: 17099-2 Heart Rate 1: 84 bpm Height: 5'7" Temperature: 36.5 (C) / 97.7 (F) Weight: 204 lbs 01/30/2012 Blood Pressure 1: 152/110 Code: 8480-6 BMI: 32.0 Code: 71511-3 Heart Rate 1: 116 bpm Height: 5'7" Respiratory Rate: 20 bpm Temperature: 37 .0 (C) / 98.6 (F) Weight: 204 lbs 01/24/2012 Blood Pressure 1: 146/100 Code: 8480-6 BMI: 32.0 Code: 76745-1 Heart Rate 1: 100 bpm Height: 5'7" Respiratory Rate: 20 bpm Temperature: 36 .7 (C) / 98.0 (F) Weight: 204 lbs 01/10/2012 Blood Pressure 1: 156/94 Code: 8480-6 BMI: 32.6 Code: 85123-3 Heart Rate 1: 72 bpm Height: 5'7" Respiratory Rate: 20 bpm Temperature: 36 .8 (C) / 98.2 (F) Weight: 208 lbs 12/11/2011 Blood Pressure 1: 146/100 Code: 8480-6 Heart Rat e 1: 116 bpm Height: 5'7" Respiratory Rate: 20 bpm Temperature: 36.9 (C) / 98.4 (F) We ight: 11/09/2011 Blood Pressure 1: 148/96 Code: 8480-6 BMI: 32.1 Code: 31432-0 Heart Rate 1: 116 bpm Height: 5'7" Respiratory Rate: 20 bpm Temperature: 36 .7 (C) / 98.0 (F) Weight: 205 lbs 09/13/2011 Blood Pressure 1: 126/88 Code: 8480-6 Heart Rate 1: 88 bpm Height: 5'7" Respiratory Rate: 20 bpm Temperature: 36.9 (C) / 98.4 (F) We ight: 08/31/2011 Blood Pressure 1: 118/82 Code: 8480-6 BMI: 32.0 Code: 27131-2 Heart Rate 1: 80 bpm Height: 5'7" Temperature: 36.4 (C) / 97.6 (F) Weight: 204 lbs 07/06/2011 Blood Pressure 1: 128/86 Code: 8480-6 BMI: 30.9 Code: 48051-8 Heart Rate 1: 92 bpm Height: 5'7" Respiratory Rate: 20 bpm Temperature: 36 .9 (C) / 98.4 (F) Weight: 197 lbs 06/06/2011 Blood Pressure 1: 112/74 Code: 8480-6 BMI: 31.0 Code: 71297-4 Heart Rate 1: 72 bpm Height: 5'7" [...] 1: 128/92 Code: 8480-6 BMI: 33.6 Code: 61203-1 Heart Rate 1: 104 bpm Height: 5'4" [...] Check-up Encounters Encounter Performer Location Codes Date ([id number]) OFFICE/OUTPATIENT VISIT EST Diagnosis: Ingrowing nail[ICD10: L60.0] Diagnosis: Type 2 diabetes mellitus with hyperglycemia[ICD10: E11.65] Kathleen ELLISLINE Fabiola APPIAH [employer] CPT-4: 43273 10/07/2019 ([id number]) OFFICE/OUTPATIENT VISIT EST Diagnosis: DM w/o complication type II, uncontrolled[ICD10: E11.65] Diagnosis: Hypertriglyceridemia[ICD10: E78.1] Diagnosis: Essential hypertension[ICD10: I10] María Elena BASURTO TED APPIAH [employer] CPT-4: 46990 09/30/2019 ([id number]) NURSE/OUTPATIENT VISIT EST Diagnosis: Essential (primary) hypertension[ICD10: I10] Diagnosis: Cervicalgia[ICD10: M54.2] Diagnosis: Hyperglycemia, unspecified[ICD10: R73.9] Diagnosis: Mixed hyperlipidemia[ICD10: E78.2] María Elena BASURTO TED [employer] APPIAH [employer] CPT-4: 99775 09/29/2019 ([id number]) OFFICE/OUTPATIENT VISIT EST Diagnosis: Essential (primary) hypertension[ICD10: I10] Diagnosis: Fall from bed, sequela[ICD10: W06.XXXS] María Elena REED LucioJj TD [employer] CPT-4: 09874 05/28/2019 ([id number]) NURSE/OUTPATIENT VISIT EST Diagnosis: Essential (primary) hypertension[ICD10: I10] María Elena JUARES LucioJj [employer] CPT-4: 10160 05/19/2019 ([id number]) OFFICE/OUTPATIENT VISIT EST Diagnosis: Essential (primary) hypertension[ICD10: I10] Diagnosis: Type 2 diabetes mellitus with hyperglycemia[ICD10: E11.65] Diagnosis: Intervertebral disc disorders with radiculopathy, 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] Diagnosis: Hormone replacement therapy[ICD10: Z79.890] María Elena JUARES LucioJj TD [employer] CPT-4: 18012 01/22/2019 ([id number]) OFFICE/OUTPATIENT VISIT EST Diagnosis: Essential (primary) hypertension[ICD10: I10] Diagnosis: Type 2 diabetes mellitus with hyperglycemia[ICD10: E11.65] María Elnea APPIAH [facility] CPT-4: 09636 09/30/2018 ([id number]) OFFICE/OUTPATIENT VISIT EST Diagnosis: Pain in left elbow[ICD10: M25.522] Diagnosis: Acute stress reaction[ICD10: F43.0] Diagnosis: Primary insomnia[ICD10: F51.01] Diagnosis: Abnormal weight gain[ICD10: R63.5] María Elena APPIAH [facility] CPT-4: 65730 08/27/2018 ([id number]) OFFICE/OUTPATIENT VISIT EST Diagnosis: Acute recurrent sinusitis, unspecified[ICD10: J01.91] Diagnosis: Follicular disorder, unspecified[ICD10: L73.9] Diagnosis: Tinea corporis[ICD10: B35.4] María Elena APPIAH [facility] CPT-4: 79116 08/09/2018 ([id number]) OFFICE/OUTPATIENT VISIT EST Diagnosis: Tinea corporis[ICD10: B35.4] Diagnosis: Anxiety disorder, unspecified[ICD10: F41.9] Diagnosis: Menopausal and female climacteric states[ICD10: N95.1] María Elena APPIAH [facility] CPT-4: 95656 07/22/2018 ([id number]) NURSE/OUTPATIENT VISIT EST Diagnosis: Cellulitis of right toe[ICD10: L03.031] María Elena APPIAH [facility] CPT-4: 55157 06/19/2018 ([id number]) OFFICE/OUTPATIENT VISIT EST Diagnosis: Cellulitis of right toe[ICD10: L03.031] Kathleen Leijaimaldi KYLAH APPIAH [facility] CPT-4: 33429 06/17/2018 ([id number]) OFFICE/OUTPATIENT VISIT EST Diagnosis: Migraine without aura, intractable, without status migrainosus[ICD10: G43.019] Diagnosis: Zoster without complications[ICD10: B02.9] Kathleen Leijaimaldi MARÍA ELENA APPIAH [facility] CPT-4: 32253 05/16/2018 ([id number]) OFFICE/OUTPATIENT VISIT EST Diagnosis: Cellulitis of right lower limb[ICD10: L03.115] Kathleen APPIAH [facility] CPT-4: 76562 03/20/2018 ([id number]) OFFICE/OUTPATIENT VISIT EST Diagnosis: Cellulitis of right lower limb[ICD10: L03.115] Kathleen APPIAH DO [facility] CPT-4: 46878 03/18/2018 ([id number]) OFFICE/OUTPATIENT VISIT EST Diagnosis: Cellulitis of right lower limb[ICD10: L03.115] Kathleen APPIAH DO [facility] CPT-4: 78062 03/15/2018 ([id number]) OFFICE/OUTPATIENT VISIT EST Diagnosis: Acute sinusitis, unspecified[ICD10: J01.90] Kathleen APPIAH DO [facility] CPT-4: 18297 02/11/2018 ([id number]) NURSE/OUTPATIENT VISIT EST Diagnosis: Otitis media, unspecified, right ear[ICD10: H66.91] María Elena APPIAH [employer] [facility] CPT-4: 87410 02/01/2018 ([id number]) OFFICE/OUTPATIENT VISIT EST Diagnosis: Acute suppurative otitis media without spontaneous rupture of ear drum, left ear[ICD10: H66.002] Diagnosis: Abnormal weight gain[ICD10: R63.5] Diagnosis: Intervertebral disc disorders with radiculopathy, 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] Kathleen APPIAH DO [facility] CPT-4: 99 214 01/30/2018 ([id number]) PREV VISIT EST AGE 40-64 Diagnosis: Encounter for general adult medical examination without abnormal findings[ICD10: Z00.00] Diagnosis: Essential (primary) hypertension[ICD10: I10] Diagnosis: Mixed hyperlipidemia[ICD10: E78.2] Diagnosis: Type 2 diabetes mellitus with hyperglycemia[ICD10: E11.65] Diagnosis: 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] María Elena APPIAH [employer] [facility] CPT-4: 24439 12/18/2017 ([id number]) OFFICE/OUTPATIENT VISIT EST Diagnosis: Cellulitis of right toe[ICD10: L03.031] Diagnosis: Mixed hyperlipidemia[ICD10: E78.2] Diagnosis: Essential (primary) hypertension[ICD10: I10] Diagnosis: Hyperglycemia, unspecified[ICD10: R73.9] Diagnosis: Nontoxic goiter, 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] María Elena APPIAH DO [facility] CPT-4: 08067 12/10/2017 ([id number]) OFFICE/OUTPATIENT VISIT EST Diagnosis: Cellulitis of right toe[ICD10: L03.031] Diagnosis: Acute sinusitis, unspecified[ICD10: J01.90] Kathleen APPIAH DO [facility] CPT-4: 50899 12/07/2017 OFFICE/OUTPATIENT VISIT EST Diagnosis: Acute maxillary sinusitis, unspecified[ICD10: J01.00] Kathleen APPIAH DO [facility] CPT-4: 30316 10/08/2017 ([id number]) OFFICE/OUTPATIENT VISIT EST Diagnosis: Cellulitis of left toe[ICD10: L03.032] María Elena ISAAC [employer] APPIAH [facility] CPT-4: 61715 09/21/2017 ([id number]) OFFICE/OUTPATIENT VISIT EST Diagnosis: Insomnia, unspecified[ICD10: G47.00] Diagnosis: Major depressive disorder, single episode, unspecified[ICD10: F32.9] Diagnosis: Anxiety disorder, unspecified[ICD10: F41.9] Diagnosis: Cellulitis of left toe[ICD10: L03.032] Diagnosis: Snoring[ICD10: R06.83] Kathleen APPIAH DO [facility] CPT-4: 01960 09/20/2017 ([id number]) OFFICE/OUTPATIENT VISIT EST Diagnosis: Cellulitis of left toe[ICD10: L03.032] María Elena APPIAH DO [facility] CPT-4: 38522 07/19/2017 OFFICE/OUTPATIENT VISIT EST Diagnosis: Chronic sinusitis, unspecified[ICD10: J32.9] Diagnosis: Generalized hyperhidrosis[ICD10: R61] Kathleen APPIAH DO [facility] CPT-4: 08395 06/27/2017 ([id number]) OFFICE/OUTPATIENT VISIT EST Diagnosis: Intervertebral disc disorders with radiculopathy, 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] Diagnosis: Primary insomnia[ICD10: F51.01] Diagnosis: Other fatigue[ICD10: R53.83] María Elena APPIAH DO [facility] CPT-4: 77125 04/10/2017 ([id number]) OFFICE/OUTPATIENT VISIT EST Diagnosis: Primary insomnia[ICD10: F51.01] Diagnosis: Localized edema[ICD10: R60.0] Diagnosis: 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] María Elena APPIAH DO [facility] CPT-4: 56477 12/13/2016 ([id number]) OFFICE/OUTPATIENT VISIT EST Diagnosis: Primary insomnia[ICD10: F51.01] Diagnosis: Cyanosis[ICD10: R23.0] María Elena Bazzi [employer] [facility] CPT-4: 21320 11/01/2016 ([id number]) PREV VISIT EST AGE 40-64 Diagnosis: Encounter for gynecological examination (general) (routine) without abnormal findings[ICD10: Z01.419] Diagnosis: Encounter for routine child health examination without abnormal findings[ICD10: Z00.129] María Elena APPIAH [employer] [facility] CPT-4: 05385 10/17/2016 ([id number]) OFFICE/OUTPATIENT VISIT EST Diagnosis: Other seasonal allergic rhinitis[ICD10: J30.2] María Elena APPIAH DO [facility] CPT-4: 67909 10/10/2016 ([id number]) OFFICE/OUTPATIENT VISIT EST Diagnosis: Pain in left arm[ICD10: M79.602] Diagnosis: Contact with and (suspected) exposure to potentially hazardous body fluids[ICD10: Z77.21] Diagnosis: 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, 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] Diagnosis: Unspecified open wound, right foot, sequela[ICD10: S91.301S] María Elena APPIAH [employer] [facility] CPT-4: 73689 09/19/2016 ([id number]) OFFICE/OUTPATIENT VISIT EST Diagnosis: Chronic sinusitis, unspecified[ICD10: J32.9] Diagnosis: Allergic rhinitis due to pollen[ICD10: J30.1] María Elena APPIAH DO [facility] CPT-4: 55674 08/24/2016 ([id number]) OFFICE/OUTPATIENT VISIT EST Diagnosis: Acute bronchitis, unspecified[ICD10: J20.9] María Elena APPIAH DO [facility] CPT-4: 51776 08/16/2016 ([id number]) OFFICE/OUTPATIENT VISIT EST Diagnosis: Otitis media, unspecified, right ear[ICD10: H66.91] Diagnosis: Acute bronchitis, unspecified[ICD10: J20.9] María Elena APPIAH DO [facility] CPT-4: 29225 08/10/2016 ([id number]) OFFICE/OUTPATIENT VISIT EST Diagnosis: Acute recurrent sinusitis, unspecified[ICD10: J01.91] Diagnosis: Allergic rhinitis due to pollen[ICD10: J30.1] María Elena APPIAH [employer] [facility] CPT-4: 28996 08/02/2016 ([id number]) OFFICE/OUTPATIENT VISIT EST Diagnosis: Pain in unspecified joint[ICD10: M25.50] María Elena APPIAH DO [facility] CPT-4: 49425 07/27/2016 OFFICE/OUTPATIENT VISIT EST Diagnosis: 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] Diagnosis: Acute recurrent sinusitis, unspecified[ICD10: J01.91] Diagnosis: Other fatigue[ICD10: R53.83] Diagnosis: Primary insomnia[ICD10: F51.01] Diagnosis: Pain in unspecified joint[ICD10: M25.50] María Elena APPIAH [employer] [facility] CPT-4: 77136 07/20/2016 ([id number]) OFFICE/OUTPATIENT VISIT EST Diagnosis: Blister (nonthermal), left great toe, initial encounter[ICD10: S90.422A] Loan APPIAH DO [facility] CPT-4: 27027 ([id number]) OFFICE/OUTPATIENT VISIT EST Diagnosis: Acute recurrent sinusitis, unspecified[ICD10: J01.91] María Elena APPIAH DO [facility] CPT-4: 07116 05/25/2016 ([id number]) OFFICE/OUTPATIENT VISIT EST Diagnosis: Acute sinusitis, unspecified[ICD10: J01.90] María Elena APPIAH DO [facility] CPT-4: 57737 04/26/2016 ([id number]) OFFICE/OUTPATIENT VISIT EST Diagnosis: Flushing[ICD10: R23.2] Diagnosis: Primary insomnia[ICD10: F51.01] María Elena APPIAH DO [facility] CPT-4: 24783 03/02/2016 ([id number]) OFFICE/OUTPATIENT VISIT EST Diagnosis: Other seasonal allergic rhinitis[ICD10: J30.2] Loan APPIA[facility] CPT-4: 63160 02/09/2016 ([id number]) OFFICE/OUTPATIENT VISIT EST Diagnosis: Primary insomnia[ICD10: F51.01] Diagnosis: Urinary tract infection, site not specified[ICD10: N39.0] María Elena APPIAH DO [facility] CPT-4: 04488 01/24/2016 ([id number]) OFFICE/OUTPATIENT VISIT EST Diagnosis: Other specified disorders of Eustachian tube, bilateral[ICD10: H69.83] Diagnosis: Allergic rhinitis, unspecified[ICD10: J30.9] Loan APPIAH DO [facility] CPT-4: 12738 12/23/2015 ([id number]) OFFICE/OUTPATIENT VISIT EST Diagnosis: Acute recurrent sinusitis, unspecified[ICD10: J01.91] Diagnosis: 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] Diagnosis: Allergic rhinitis, unspecified[ICD10: J30.9] María Elena APPIAH DO [facility] CPT-4: 12117 12/08/2015 ([id number]) OFFICE/OUTPATIENT VISIT EST Diagnosis: Allergic rhinitis, unspecified[ICD10: J30.9] Diagnosis: Pain in unspecified joint[ICD10: M25.50] María Elena APPIAH DO [facility] CPT-4: 59227 10/07/2015 ([id number]) OFFICE/OUTPATIENT VISIT EST Diagnosis: Essential (primary) hypertension[ICD10: I10] María Elena APPIAH DO [facility] CPT-4: 99934 10/06/2015 OFFICE/OUTPATIENT VISIT EST Diagnosis: Localized enlarged lymph nodes[ICD10: R59.0] Diagnosis: Local infection of the skin and subcutaneous tissue, unspecified[ICD10: L08.9] June VelozAlbertadaniella APPIAH DO [facility] CPT- 4: 33188 09/14/2015 ([id number]) OFFICE/OUTPATIENT VISIT EST Diagnosis: Essential (primary) hypertension[ICD10: I10] Diagnosis: Actinic keratosis[ICD10: L57.0] María Elena APPIAH DO [facility] CPT-4: 34742 09/07/2015 ([id number]) OFFICE/OUTPATIENT VISIT EST Diagnosis: Essential (primary) hypertension[ICD10: I10] Diagnosis: Acute stress reaction[ICD10: F43.0] María Elena APPIAH DO [facility] CPT-4: 44071 08/18/2015 ([id number]) OFFICE/OUTPATIENT VISIT EST Diagnosis: Essential (primary) hypertension[ICD10: I10] María Elena APPIAH DO [facility] CPT-4: 58879 07/07/2015 ([id number]) OFFICE/OUTPATIENT VISIT EST Diagnosis: Essential (primary) hypertension[ICD10: I10] María Elena APPIAH DO [facility] CPT-4: 02099 06/24/2015 ([id number]) OFFICE/OUTPATIENT VISIT EST Diagnosis: Essential (primary) hypertension[ICD10: I10] María Elena APPIAH DO [facility] CPT-4: 10700 06/21/2015 ([id number]) OFFICE/OUTPATIENT VISIT EST Diagnosis: Essential (primary) hypertension[ICD10: I10] Diagnosis: Mixed hyperlipidemia[ICD10: E78.2] Diagnosis: Acute stress reaction[ICD10: F43.0] Diagnosis: Primary insomnia[ICD10: F51.01] María Elena APPIAH [facility] CPT-4: 06450 06/16/2015 ([id number]) OFFICE/OUTPATIENT VISIT EST Diagnosis: INSOMNIA NOS[ICD9: 780.52] Diagnosis: HYPERTENSION[ICD9: 401.9] Diagnosis: Stress reaction[ICD9: 308.9] María Elena APPIAH [facility] CPT-4: 99860 06/02/2015 ([id number]) OFFICE/OUTPATIENT VISIT EST Diagnosis: HYPERTENSION[ICD9: 401.9] Diagnosis: Stress reaction[ICD9: 308.9] María Elena APPIAH [facility] CPT-4: 53699 05/20/2015 ([id number]) OFFICE/OUTPATIENT VISIT EST Diagnosis: Skin lesion[ICD9: 709.9] 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] María Elena APPIAH [facility] CPT-4: 04094 05/10/2015 ([id number]) OFFICE/OUTPATIENT VISIT EST Diagnosis: SINUSITIS, ACUTE[ICD9: 461.9] Diagnosis: ALLERGIC RHINITIS[ICD9: 477.9] Diagnosis: DERMATITIS NOS[ICD9: 692.9] María Elena REHMAN [facility] CPT-4: 84982 03/16/2015 OFFICE/OUTPATIENT VISIT EST Diagnosis: Otitis media[ICD9: 382.9] Diagnosis: SINUSITIS, ACUTE[ICD9: 461.9] June VanSpencer AMRÍA ELENA APPIAH [facility] CPT-4: 02885 09/11/2014 ([id number]) OFFICE/OUTPATIENT VISIT EST Diagnosis: HYPERLIPIDEMIA NEC/NOS[ICD9: 272.4] María Elena APPIAH [facility] CPT-4: 01359 08/31/2014 ([id number]) OFFICE/OUTPATIENT VISIT EST Diagnosis: - I - HYPERTENSION[ICD9: 401.9] Diagnosis: HYPERLIPIDEMIA NEC/NOS[ICD9: 272.4] María Elena APPIAH DO [facility] CPT-4: 17269 08/27/2014 ([id number]) OFFICE/OUTPATIENT VISIT EST Diagnosis: ABDOMINAL PAIN[ICD9: 789.00] Diagnosis: DYSPEPSIA[ICD9: 536.8] Diagnosis: Thoracic back pain[ICD9: 724.1] María Elena APPIAH DO [facility] CPT-4: 14750 07/21/2014 ([id number]) OFFICE/OUTPATIENT VISIT EST Diagnosis: ALLERGIC RHINITIS[ICD9: 477.9] María Elena APPIAH DO [facility] CPT-4: 76347 07/15/2014 ([id number]) OFFICE/OUTPATIENT VISIT EST Diagnosis: EDEMA[ICD9: 782.3] Diagnosis: Chronic insomnia[ICD9: 780.52] María Elena APPIAH DO [facility] CPT-4: 56862 05/18/2014 ([id number]) OFFICE/OUTPATIENT VISIT EST Diagnosis: Thyromegaly[ICD9: 240.9] Diagnosis: - I - HYPERTENSION[ICD9: 401.9] Diagnosis: ROUTINE MEDICAL EXAM[ICD9: V70.0] Diagnosis: EDEMA[ICD9: 782.3] María Elena APPIAH DO [facility] CPT-4: 29409 05/14/2014 OFFICE/OUTPATIENT VISIT EST Diagnosis: BRONCHITIS, ACUTE[ICD9: 466.0] Diagnosis: SINUSITIS, ACUTE[ICD9: 461.9] María Elena APPIAH [facility] CPT-4: 77880 04/21/2014 OFFICE/OUTPATIENT VISIT EST Diagnosis: SINUSITIS, ACUTE[ICD9: 461.9] June Flores MARÍA ELENA APPIAH [facility] CPT-4: 51662 03/04/2014 ([id number]) OFFICE/OUTPATIENT VISIT EST Diagnosis: VACCINE FOR TDAP[ICD10: Z23] María Elena APPIAH DO [facility] CPT-4: 30723 02/27/2014 ([id number]) OFFICE/OUTPATIENT VISIT EST Diagnosis: Seborrheic keratoses, inflamed[ICD9: 702.11] Diagnosis: ACTINIC KERATOSIS[ICD9: 702.0] Diagnosis: INSOMNIA NOS[ICD9: 780.52] 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: 54169 12/24/2013 ([id number]) OFFICE/OUTPATIENT VISIT EST Diagnosis: SINUSITIS, ACUTE[ICD9: 461.9] Diagnosis: ALLERGIC RHINITIS[ICD9: 477.9] Diagnosis: EUSTACHIAN TUBE DYSFUNCTION[ICD9: 381.81] [facility]: 80370 11/12/2013 ([id number]) OFFICE/OUTPATIENT VISIT EST Diagnosis: ALLERGIC RHINITIS[ICD9: 477.9] Diagnosis: SINUSITIS, ACUTE[ICD9: 461.9] [facility] 97768 10/21/2013 ([id number]) OFFICE/OUTPATIENT VISIT EST Diagnosis: ASYMPTOMATIC VARICOSE VEINS[ICD9: 454.9] Diagnosis: INSOMNIA NOS[ICD9: 780.52] María Elena Valdes [facility]YN [facility] CPT-[facility]: 96123 09/22/2013 OFFICE/OUTPATIENT VISIT EST Diagnosis: SINUSITIS, ACUTE[ICD9: 461.9] June Sandra MARÍA ELENA 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: 91665 08/04/2013 ([id number]) OFFICE/OUTPATIENT VISIT EST Diagnosis: Cervicalgia[ICD9: 723.1] Diagnosis: SPASM OF MUSCLE[ICD9: 728.85] Diagnosis: CEPHALGIA, TENSION[ICD9: 307.81] María Elena Td ELLISLINE Fabiola APPIAH DO [facility] CPT-4: 44740 07/23/2013 ([id number]) OFFICE/OUTPATIENT VISIT EST Diagnosis: EUSTACHIAN TUBE DYSFUNCTION[ICD9: 381.81] Diagnosis: ALLERGIC RHINITIS[ICD9: 477.9] María Elena ELLISLINE Lucio APPIAH DO [facility] CPT-4: 19765 06/23/2013 ([id number]) OFFICE/OUTPATIENT VISIT EST Diagnosis: ALLERGIC RHINITIS[ICD9: 477.9] Diagnosis: ACUTE SEROUS OTITIS MEDIA[ICD9: 381.01] Diagnosis: EUSTACHIAN TUBE DYSFUNCTION[ICD9: 381.81] María Elena Td ELLISLINE LucioJj TD [facility] CPT-4: 35300 05/26/2013 ([id number]) OFFICE/OUTPATIENT VISIT EST Diagnosis: HYPERTENSION[ICD9: 401.9] Diagnosis: EDEMA[ICD9: 782.3] Diagnosis: Serous otitis media[ICD9: 381.4] María Elena ELLISLINE Fabiola APPIAH [facility] CPT-4: 20535 04/16/2013 ([id number]) OFFICE/OUTPATIENT VISIT EST Diagnosis: SINUSITIS, ACUTE[ICD9: 461.9] Diagnosis: ALLERGIC RHINITIS[ICD9: 477.9] Diagnosis: EDEMA[ICD9: 782.3] Diagnosis: Thyromegaly[ICD9: 240.9] Diagnosis: MALAISE AND FATIGUE[ICD9: 780.79] María Elena Seamusabbey Lopez LucioJj TD [employer] [facility] CPT-4: 11569 03/05/2013 ([id number]) OFFICE/OUTPATIENT VISIT EST Diagnosis: PAIN, LOWER BACK[ICD9: 724.2] Diagnosis: SPASM OF MUSCLE[ICD9: 728.85] María Elena JUARES LucioJj TD [employer] [facility] CPT-4: 49108 12/23/2012 OFFICE/OUTPATIENT VISIT EST Diagnosis: Low back pain[ICD9: 724.2] Lashawn Hicks KRISTYN MUMTAZ [facility] CPT-4: 21986 12/16/2012 ([id number]) OFFICE/OUTPATIENT VISIT EST Diagnosis: PAIN, LOWER BACK[ICD9: 724.2] Diagnosis: SCIATICA[ICD9: 724.3] Diagnosis: Lumbar herniated disc[ICD9: 722.10] María Elena ELLISJaylin APPIAH DO [facility] CPT-4: 90107 12/09/2012 ([id number]) OFFICE/OUTPATIENT VISIT EST Diagnosis: PAIN, LOWER BACK[ICD9: 724.2] Diagnosis: SCIATICA[ICD9: 724.3] Diagnosis: LUMBAR DISC DISPLACEMENT[ICD9: 722.10] María Elena MARIN Fabiola APPIAH DO [facility] CPT-4: 62381 12/04/2012 OFFICE/OUTPATIENT VISIT EST Diagnosis: Pneumonia[ICD9: 486] Mary Tillman MARÍA ELENA APPIAH DO [facility] CPT-4: 31067 11/22/2012 ([id number]) OFFICE/OUTPATIENT VISIT EST Diagnosis: PNEUMONIA, ORGANISM[ICD9: 486] Diagnosis: Exacerbation of RAD (reactive airway disease)[ICD9: 493.92] María Elena Td APPIAH DO [facility] CPT-4: 90237 11/21/2012 OFFICE/OUTPATIENT VISIT EST Diagnosis: HYPERTENSION[ICD9: 401.9] Diagnosis: Cephalgia[ICD9: 784.0] Lashawn MONTEROQUELINE Fabiola APPIAH DO L CPT-4: 09470 10/29/2012 ([id number]) OFFICE/OUTPATIENT VISIT EST Diagnosis: MALAISE AND FATIGUE[ICD9: 780.79] Diagnosis: ARTHRALGIA-MULTIPLE SITES[ICD9: 719.49] María Elena REED Fabiola APPIAH DO [facility] CPT-4: 29883 10/14/2012 ([id number]) OFFICE/OUTPATIENT VISIT EST Diagnosis: URINARY FREQUENCY[ICD9: 788.41] María Elena MONTEROQUELINE Fabiola APPIAH DO [facility] CPT-4: 39481 09/27/2012 ([id number]) OFFICE/OUTPATIENT VISIT EST Diagnosis: MALAISE AND FATIGUE[ICD9: 780.79] Diagnosis: ARTHRALGIA-MULTIPLE SITES[ICD9: 719.49] María Elena APPIAH [facility] CPT-4: 51138 09/25/2012 ([id number]) OFFICE/OUTPATIENT VISIT EST Diagnosis: SINUSITIS, ACUTE[ICD9: 461.9] Diagnosis: EUSTACHIAN TUBE DYSFUNCTION[ICD9: 381.81] María Elena APPIAH [facility] CPT-4: 10418 08/29/2012 OFFICE/OUTPATIENT VISIT EST Diagnosis: ACTINIC KERATOSIS[ICD9: 702.0] Diagnosis: Inflamed seborrheic keratosis[ICD9: 702.11] Diagnosis: Skin cancer of face[ICD9: 173.31] Diagnosis: HYPERTENSION[ICD9: 401.9] María Elena [facility] CPT-4: 05721 08/12/2012 ([id number]) OFFICE/OUTPATIENT VISIT EST Diagnosis: ARTHRALGIA-MULTIPLE SITES[ICD9: 719.49] Diagnosis: GOUT[ICD9: 274.9] Diagnosis: HYPERTENSION[ICD9: 401.9] Diagnosis: Tachycardia[ICD9: 785.0] María Elena BRADFORD [facility] CPT-4: 38953 05/06/2012 ([id number]) OFFICE/OUTPATIENT VISIT EST Diagnosis: INSOMNIA NOS[ICD9: 780.52] [facility]: 88370 04/03/2012 ([id number]) OFFICE/OUTPATIENT VISIT EST Diagnosis: INSOMNIA NOS[ICD9: 780.52] Diagnosis: HYPERTENSION[ICD9: 401.9] Diagnosis: MIGRAINE NOS/NOT INTRCBL[ICD9: 346.90] [facility]: 58049 03/19/2012 ([id number]) OFFICE/OUTPATIENT VISIT EST Diagnosis: CELLULITIS[ICD9: 682.9] Diagnosis: Ankle pain[ICD9: 719.47] Diagnosis: HYPERTENSION[ICD9: 401.9] María Elena SEYMOUR [facility] CPT-4: 60463 02/20/2012 ([id number]) OFFICE/OUTPATIENT VISIT EST Diagnosis: MIGRAINE NOS/NOT INTRCBL[ICD9: 346.90] Diagnosis: Vomiting[ICD9: 787.03] María Elena Seamusabbey JUARES LucioJj CIRO Bazzi [facility] CPT-4: 16399 01/30/2012 ([id number]) OFFICE/OUTPATIENT VISIT EST Diagnosis: EDEMA[ICD9: 782.3] Diagnosis: HYPERTENSION[ICD9: 401.9] Diagnosis: ALLERGIC RHINITIS[ICD9: 477.9] Diagnosis: ARTHRALGIA-MULTIPLE SITES[ICD9: 719.49] María Elena MONTERO APARNAALCIDES LucioJj TD [facility] CPT-4: 46638 01/24/2012 ([id number]) OFFICE/OUTPATIENT VISIT EST Diagnosis: SPASM OF MUSCLE[ICD9: 728.85] Diagnosis: Thoracic back pain[ICD9: 724.1] Diagnosis: Cervical pain[ICD9: 723.1] María Elena JUARES LucioJj KRISTYN PANDYA [facility] CPT-4: 00696 01/10/2012 OFFICE/OUTPATIENT VISIT EST Diagnosis: PAIN, LOWER BACK[ICD9: 724.2] Diagnosis: LUMBAR DISC DISPLACEMENT[ICD9: 722.10] María Elena MARIN LucioJj TD [facility] CPT-4: 40255 12/11/2011 OFFICE/OUTPATIENT VISIT EST Diagnosis: MIGRAINE NOS/NOT INTRCBL[ICD9: 346.90] Diagnosis: SINUSITIS, ACUTE[ICD9: 461.9] María Elena Seamusabbey JUARES LucioJj TD [facility] CPT-4: 73746 11/09/2011 OFFICE/OUTPATIENT VISIT EST Diagnosis: MIGRAINE NOS/NOT INTRCBL[ICD9: 346.90] Diagnosis: LYMPHADENOPATHY[ICD9: 785.6] María Elena Seamusabbey JUARES LucioJj TD [facility] CPT-4: 40772 09/13/2011 OFFICE/OUTPATIENT VISIT EST Diagnosis: MALAISE AND FATIGUE[ICD9: 780.79] Diagnosis: ARTHRALGIA-MULTIPLE SITES[ICD9: 719.49] María Elena REED LucioJj TD [facility] CPT-4: 52406 08/31/2011 OFFICE/OUTPATIENT VISIT EST Diagnosis: SINUSITIS, ACUTE[ICD9: 461.9] María Elena ValdesJj ORENDER DO [facility] CPT-4: 56280 07/20/2011 OFFICE/OUTPATIENT VISIT EST Diagnosis: HYPERTENSION[ICD9: 401.9] Diagnosis: PAIN, LOWER BACK[ICD9: 724.2] Diagnosis: SPASM OF MUSCLE[ICD9: 728.85] María Elena GODOYNDER DO [facility] CPT-4: 20317 07/06/2011 OFFICE/OUTPATIENT VISIT EST Diagnosis: MIGRAINE NOS/NOT INTRCBL[ICD9: 346.90] Diagnosis: HYPERTENSION[ICD9: 401.9] María Elena GODOY NDER DO [facility] CPT-4: 26517 05/22/2011 OFFICE/OUTPATIENT VISIT EST Diagnosis: SINUSITIS, ACUTE[ICD9: 461.9] Diagnosis: MIGRAINE NOS/NOT INTRCBL[ICD9: 346.90] Diagnosis: Dehydration[ICD9: 276.51] Diagnosis: Vomiting[ICD9: 787.03] María Elena Seamusmindimaryjane MARÍA ELENA LucioJj MARIVELE R DO [facility] CPT-4: 42358 05/09/2011 ([id number]) OFFICE/OUTPATIENT VISIT EST María Elena Td ISAAC UJARED S. ORENDER DO [facility] CPT-4: 53587 02/14/2011 ([id number]) OFFICE/OUTPATIENT VISIT EST María Elena Td ISAAC UJARED S. ORENDER DO [facility] CPT-4: 47376 02/03/2011 ([id number]) OFFICE/OUTPATIENT VISIT EST María Elena Seamusmindimaryjane ISAAC UJARED S. ORENDER DO [facility] CPT-4: 03303 01/31/2011 ([id number]) OFFICE/OUTPATIENT VISIT EST María Elena Td ISAAC UELINE S. OREND[facility] DO [facility] CPT-4: 82632 01/25/2011 ([id number]) OFFICE/OUTPATIENT VISIT EST María Elena Seamusmindimaryjane ISAAC UJARED S. ORENDER DO [facility] CPT-4: 01592 01/18/2011 ([id number]) OFFICE/OUTPATIENT VISIT EST María Elena Seamusmindimaryjane ISAAC UJARED S. ORENDER DO [facility] CPT-4: 10069 11/29/2010 ([id number]) OFFICE/OUTPATIENT VISIT, EST María Elena MONTERO APARNAALCIDES S. [facility]ER [facility] CPT-4: 67222 10/10/2010 ([id number]) OFFICE/OUTPATIENT VISIT, EST María Elena GODOYNDER DO [facility] CPT-4: 26441 06/07/2010 ([id number]) OFFICE/OUTPATIENT VISIT, EST María Elena GODOYNDER [employer] CPT-4: 70045 04/27/2010 ([id number]) OFFICE/OUTPATIENT VISIT, EST María Elena GODOYNDER DO [facility] CPT-4: 95024 04/05/2010 ([id number]) OFFICE/OUTPATIENT VISIT, EST María Elena [facility]OY[facility]ER [facility] CPT-4: 85566 03/09/2010 ([id number]) OFFICE/OUTPATIENT VISIT, EST María Elena GODOYNDER [facility] CPT-4: 35586 03/03/2010 ([id number]) OFFICE/OUTPATIENT VISIT, EST María Elena ORTAER [facility] CPT-4: 14278 01/17/2010 ([id number]) PREV VISIT, EST, AGE 40-64 María Elena APPIAH DO [facility] CPT-4: 36100 12/27/2009 Plan of Care Planned Activity Notes [...] ICD-10 : E11.65 10/07/2019 Appointment: Kathleen Zuniga [address] [place], [place] [id number] OFFICE SURGERY 10/07/2019 Visit Diagnosis Plan: [...] E11.65 09/30/2019 Appointment: María Elena Appiah WPtel: [address] [place], [place] [phone] [place] CHECK UP 09/30/2019 Patient Education: Premarin- [employer] Coupon [id number] https://www.[employer].com/samplemd/resources/getResource/61/80286v16-h038-7uku-o8 Completed 09/30/2019 Appointment: María Elena Appiah WPtel: [address] [place], [place] [phone] [place] LAB 09/29/2019 Appointment: María Elena Appiah WPtel: [address] [place], [place] [phone] [place] Won't have the new insurance till [...] W06.XXXS 05/28/2019 Appointment: María Elena Appiah WPtel: [address] [place], [place] [phone] [place] FOLLOW UP 05/28/2019 Appointment: María Elena Appiah WPtel: [address] [place], [place] [address] [place] BP CHECK 05/19/2019 Visit Diagnosis Plan: [...] Z79.890 01/22/2019 Appointment: María Elena Appiah WPtel: [address] [place], [place] [id number] [place] FOLLOW UP 01/22/2019 Patient Education: estradiol- [employer] Coupon [id number] 67 https://www.[employer]/samplemd/resources/getResource/61/604v606x-9dm3-0q76-2d Completed 01/22/2019 Appointment: María Elena Appiahtel: [address] [place], [place] [phone] [place] CANCELED 01/20/2019 Appointment: María Elena Appiah WPtel: [address] [place] [address] [place] LM NO SHOW 01/06/2019 Appointment: María Elena Appiah WPtel: [address] [place] [address] [place] CANCELED 10/17/2018 Appointment: María Elena Appiah WPtel: [address] [place] [address] US BP CHECK 10/09/2018 Visit Diagnosis Plan: [...] 09/30/2018 Appointment: María Elena Appiah WPtel: [address] [place] [address] [place] FOLLOW UP 09/30/2018 Visit Diagnosis Plan: [...] : F51.01 08/27/2018 Appointment: María Elena Appiahtel: [address] [place] [address] ACUTE ILLNESS 08/27/2018 Appointment: María Elena Appiah WPtel: [address] [place] [address] [place] Patient stated she went out to [...] shes prn. Tyle... 08/09/2018 Appointment: María Elena Appihatel: [address] [place] [address] ACUTE ILLNESS 08/09/2018 Appointment: María Elena Appiahtel: [address] [place] [address] NO SHOW 08/08/2018 Visit Diagnosis Plan: Anxiety [...] : B35.4 07/22/2018 Appointment: María Elena Appiahtel: [address] [place] [address] ACUTE ILLNESS 07/22/2018 Appointment: María Elena Appiah WPtel: [address] [place] [address] [place] INJECTION 06/19/2018 Patient Education: Patient Medication [...] ICD-10 : L03.031 06/17/2018 Appointment: Kathleen Zuniga [address] [place] [address] ACUTE ILLNESS 06/17/2018 Patient Education: Patient Medication [...] ICD-10 : B02.9 05/16/2018 Appointment: Kathleen Zuniga [address] [place] [address] ACUTE ILLNESS 05/16/2018 Patient Education: Patient Medication [...] ICD-10 : L03.115 03/20/2018 Appointment: Kathleen Zuniga [address] [place], [place] [address] FOLLOW UP 03/20/2018 Patient Education: Patient Medication [...] : L03.115 03/18/2018 Appointment: Kathleen Zuniga [address] [phone] FOLLOW UP 03/18/2018 Patient Education: Patient Medication [...] : L03.115 03/15/2018 Appointment: Kathleen Zuniga [address] [facility] ACUTE ILLNESS 03/15/2018 Patient Education: Patient Medication [...] : J01.90 02/11/2018 Appointment: Kathleen Zuniga [address] [facility] ACUTE ILLNESS 02/11/2018 Patient Education: Patient Medication Summary Completed 02/11/2018 Appointment: María Elena Appiah WPtel: [address] [facility] [place] INJECTION 02/01/2018 Patient Education: Patient [...] ICD-10 : M51.16 01/30/2018 Appointment: Kathleen Zuniga [address] [place], [place] [id number] ACUTE ILLNESS 01/30/2018 Patient Education: [...] 12/18/2017 Appointment: María Elena Appiah WPtel: [phone] Annual Well Visit 12/18/2017 Patient Education: Patient Medication Summary Completed 12/18/2017 Care Plan: Referral Order SNOMED-CT : [id number] Pending 12/18/2017 Appointment: María Elena Appiah WPtel: [facility] [address] [place] INJECTION 12/10/2017 Patient Education: Patient Medication [...] ICD-10 : L03.031 12/07/2017 Appointment: Kathleen Zuniga [address] [place] [address] ACUTE ILLNESS 12/07/2017 Patient Education: Patient Medication [...] ICD-10 : J01.00 10/08/2017 Appointment: Kathleen Zuniga [address] [place] [address] ACUTE ILLNESS 10/08/2017 Patient Education: Patient Medication Summary Completed 10/08/2017 Appointment: María Elena Appiah WPtel: [phone] [address] [place] INJECTION 09/21/2017 Patient Education: Patient Medication [...] ICD-10 : R06.83 09/20/2017 Appointment: Kathleen Zuniga [address] [place], [place] [id number] ACUTE ILLNESS 09/20/2017 Patient Education: Patient Medication [...] ICD-10 : L60.0 08/29/2017 Appointment: Kathleen Zuniga [address] [place], [place] [phone] OFFICE SURGERY 08/29/2017 Patient Education: Patient Medication Summary Completed 08/29/2017 Visit Diagnosis Plan: Actinic keratosis Discussion: Cr yotherapy as above ICD-9 : 702.0 ICD-10 : L57.0 08/01/2017 Appointment: María Elena Appiah WPtel: [address] [place], [place] [phone] OFFICE SURGERY 08/01/2017 Patient Education: Patient Medication Summary Completed 08/01/2017 Appointment: María Elena Appiah WPtel: [address] [place], [place] [phone] PATIENT THOUGHT APPOINTMENT WAS TOMORROW 07/26/17 CALLED 15 MINUTES BEFORE APPT TO SAY SHE DIDN'T HAVE ANYONE TO COVER HER BUSINESS AND WOULD NOT MAKE IT NO SHOW 07/25/2017 Visit Diagnosis Plan: Cellulitis of left toe Discussio n: Clindamycin and notify if worsening or persistis ICD-9 : 681.10 ICD-10 : L03.032 07/19/2017 Appointment: María Elena Appiah WPtel: [address] [place], [place] [phone] MEDICATION REVIEW 07/19/2017 Patient Education: Patient Medication Summary Completed 07/19/2017 Appointment: María Elena Appiah WPtel: [address] [place], [place] [phone] [place] CANCELED 07/04/2017 Visit Diagnosis Plan: Generalized hyperhidrosis Discus ian: CBC, CMP, TSH, free T4 ordered to assess. will review labs. ICD-9 : 780.8 ICD-10 : R61 06/27/2017 Visit Diagnosis Plan: Chronic sinusitis, unspecified D iscussion: Referral sent to dr. albarado in [place] per patient request. patient has been treated multiple times for sinus infections with no recovery. patient was seen by dr sanchez in the past with no interventions. patient has deviated septum which may be affecting her sinuses. 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, including hip Discussion: Shave removal of above lesio n--sent to pathology ICD-9 : 216.7 ICD-10 : D23.72 01/24/2017 Appointment: María Elena Appiah WPtel: [address] [place], [place] [phone] 01/23 confirmed ~sl OFFICE SURGERY 01/24/2017 Patient Education: Patient Medication Summary Completed 01/24/2017 Appointment: Loan Sánchez [address] [place], [place] [id number] 01/09 rescheduled~sl RESCHEDULED 01/15/2017 Visit Diagnosis [...] 12/13/2016 Appointment: María Elena Appiah [facility] [phone] [id number] [place] 12/12 confirmed ~ MEDICATION REVIEW 12/13/2016 Patient Education: Patient Medication Summary Completed 12/13/2016 Appointment: María Elena Appiah [facility] [phone] [id number] [place] rescheduled for 12/13/16 at 11am RESCHEDULED 0 12/06/2016 Appointment: María Elena Appiah [facility] [phone] [id number] [place] CANCELED 11/23/2016 Patient Education: Patient Medication [...] 11/01/2016 Appointment: María Elena Appiah [facility] [phone] [id number] [place] 10/31 lm `sl 11/01 lm`sl MEDICATION REVIEW 017 Patient Education: Patient Medication Summary Completed 11/01/2016 Referral: Canelo Overton WPtel: [phone] [id number] [place] Referral Initiated 10/30/2016 Visit Diagnosis Plan: [...] Z01.419 10/17/2016 Appointment: María Elena Appiah WPtel: [address] [place] [address] 10/16 confirmed ~sl PAP 10/17/2016 Patient Education: Patient Medication Summary Completed 10/17/2016 Care Plan: MAMMOGRAM SCREENING [facility] : [phone] Pending 10/17/2016 Visit Diagnosis Plan: Other seasonal allergic rhinitis Discussion: Decadron/Garamycin Nasal Russell Mix Too soon for steroid Retry zyrtec 10mg daily ICD-9 : 477.9 ICD-10 : J30.2 10/10/2016 Appointment: María Elena Appiah WPtel: [address] [place], [place] [phone] [place] FOLLOW UP 10/10/2016 Patient Education: Patient Medication Summary Completed 10/10/2016 Appointment: María Elena Appiah WPtel: [address] [place], [place] [phone] 10/02 reschedule `sl RESCHEDULED 10/02/2016 Visit Plan: See surgery for removal of n ew left arm lesion and right foot lesion Lyrica to use next month for left arm paresthesias Continue current meds Discussed sunscreen/sunblock combo 09/19/2016 Appointment: María Elena Appiah WPtel: [address] [place], [place] [id number] 09/18 confirmed ~sl FOLLOW UP 09/19/2016 Patient Education: Patient Medication Summary Completed 09/19/2016 Patient Education: Patient Medication Summary Completed 09/18/2016 Care Plan: MAMMOGRAM BOTH BREASTS LOINC : 32302-6 Pending 09/18/2016 Visit Plan: Discussed that needs [...] 08/24/2016 Appointment: María Elena Appiah WPtel: [address] [place] [address] ACUTE ILLNESS 08/24/2016 Patient Education: Patient Medication Summary Completed 08/24/2016 Patient Education: Patient Medication Summary Completed 08/23/2016 Care Plan: MAMMOGRAM SCREENING LOINC : 2 6347-5 Pending 08/23/2016 Visit Plan: Finish doxycycline Add Breo 100/25 1 p BID for 2 weeks If not improving within next 2 days will get CXR 08/16/2016 Appointment: María Elena Appiah WPtel: [address] [place] [address] ACUTE ILLNESS 08/16/2016 Patient Education: Patient Medication Summary Completed 08/16/2016 Visit Plan: Supportive care. Rest, Fluid s, Tylenol/Motrin prn fever or bodyaches. Notify if worsening symptoms. Doxycyline and Prednisone 08/10/2016 Appointment: María Elena Appiah WPtel: [address] [place] [address] 08/09 lm`sl....confirmed-sp FOLLOW UP 09/2015 Patient Education: Patient Medication Summary Completed 08/10/2016 Visit Plan: Saline nasal flushes prn. Ty lenol/Motrin prn headache. Notify if persists/symptoms worsening. Dexamethasone 8mg IM today May use coricedan and mucinex 08/02/2016 Appointment: María Elena Appiah WPtel: [address] [place], [place] [id number] ACUTE ILLNESS 08/02/2016 Patient Education: Patient Medication Summary Completed 08/02/2016 Visit Plan: Cryotherapy as above and lef t forearm lesion removal as above with 5-0 punch biopsy and sent to path Return in 10 days for suture removal 08/01/2016 Appointment: María Elena Appiah WPtel: [address] [place] [address] 07/31 confirmed`~ OFFICE SURGERY 08/01/2016 Patient Education: Patient Medication Summary Completed 08/01/2016 Visit Plan: Stop clindamycin Check CBC, CMP, ESR now/STAT 07/27/2016 Appointment: María Elena Appiah WPtel: [address] [place] [address] ACUTE ILLNESS 07/27/2016 Patient Education: Patient Medication Summary Completed 07/27/2016 Visit Plan: Update lab and check ABIs to start with Will likely need cardiology evaluation to rule out PVD Clindamycin for 10 days Daily yogurt or probiotic Will return for removal of left arm lesions 07/20/2016 Appointment: María Elena Appiah WPtel: [address] [place] [address] ACUTE ILLNESS 07/20/2016 Patient Education: Patient Medication Summary Completed 07/20/2016 Patient Education: Patient Medication Summary Completed 07/20/2016 Care Plan: MAMMOGRAM BOTH BREASTS LOINC : 88550-5 Pending 07/20/2016 Care Plan: US EXAM CHEST LOINC : 50516-3 Pending 07/20/2016 Visit Plan: Wound culture collected from left great toe Appearance is somewhat staph like Rx as above Wound cleanser and skin care reviewed May need to add oral antibiotic if sores do not heal or continue to reoccur 07/06/2016 Appointment: Loan Sánchez [address] [place] [address] ACUTE ILLNESS 07/06/2016 Patient Education: Patient Medication Summary Completed 07/06/2016 Appointment: María Elena Appiah WPtel: [address] [place] [address] [place] INJECTION 05/25/2016 Patient Education: Patient Medication Summary Completed 05/25/2016 Visit Plan: Saline nasal flushes prn. Ty lenol/Motrin prn headache. Notify if persists/symptoms worsening. Dexamethasone and Rocephin given 04/26/2016 Appointment: María Elena Appiah WPtel: [address] [place] [address] ACUTE ILLNESS 04/26/2016 Patient Education: Patient Medication Summary Completed 04/26/2016 Visit Plan: Check CBC, CMP, TSH, FreeT4, HbA1C, estradiol, lipids in AM 03/02/2016 Appointment: María Elena Appiah WPtel: [address] [place] [address] 03/01 lm~sl ACUTE ILLNESS 03/02/2016 Patient Education: Patient Medication Summary Completed 03/02/2016 Visit Plan: Exam is nearly normal Needs to be taking daily antihistamine Would prefer to use oral steroids instead of shot but patient insist that oral steroids cause horrible headaches for her Will given kenalog IM instead 02/09/2016 Appointment: Loan Sánchez [address] [place] [address] ACUTE ILLNESS 02/09/2016 Patient Education: Patient Medication Summary Completed 02/09/2016 Visit Plan: Culture urine Macrobid DC xa nax Trial of Ativan 1mg q HS 01/24/2016 Appointment: María Elena Appiah WPtel: [address] [place] [address] ACUTE ILLNESS 01/24/2016 Patient Education: Patient Medication Summary Completed 01/24/2016 Visit Plan: No steroid or rocephin injec tion warranted Can have oral prednisone Continue current home regimen Needs to follow up with Dr Sanchez if problems persist 12/23/2015 Appointment: Loan Sánchez [address] [place] [address] ACUTE ILLNESS 12/23/2015 Patient Education: Patient Medication Summary Completed 12/23/2015 Visit Plan: Saline nasal flushes prn. Ty lenol/Motrin prn headache. Notify if persists/symptoms worsening. Kenalog 40mg IM today 12/08/2015 Appointment: María Elena Appiah WPtel: [address] [place], [place] [id number] 12/06 confirmed~sl ACUTE ILLNESS 12/08/2015 Patient Education: Patient Medication Summary Completed 12/08/2015 Appointment: María Elena Appiah WPtel: [address] [place], [place] [id number] ACUTE ILLNESS 11/18/2015 Patient Education: Patient Medication Summary Completed 10/11/2015 Appointment: María Elena Appiah WPtel: [address] [place], [place] [id number] [place] INJECTION 10/07/2015 Patient Education: Patient Medication Summary Completed 10/07/2015 Visit Plan: Check renal arterial doppler s and ECHO Change amlodopine to lotrel 5/20mg q HS Will need stress test as well Check CMP, uric acid, ESR 10/06/2015 Appointment: María Elena Appiah WPtel: [address] [place], [place] [id number] ACUTE ILLNESS 10/06/2015 Patient Education: Patient Medication Summary Completed 10/06/2015 Patient Education: [facility] - [employer] - Amlodipine Besylate - 18-64 - Dynamic Portal ID Completed 10/06/2015 Appointment: María Elena Appiah WPtel: [address] [place], [place] [phone] FOLLOW UP 09/22/2015 Visit Plan: Cephalexin 500 mg PO bid Mery ly topical Mupirocin to lesions on left lateral neck and face Follow-up in one week. Sooner if symptoms worsen 09/14/2015 Appointment: June Flores WPtel: [address] [place], [place] [id number] ACUTE ILLNESS 09/14/2015 Patient Education: Patient Medication Summary Completed 09/14/2015 Visit Plan: Change bystolic to bedtime d osing and amlodopine to morning dosing Cryotherapy as above to AKs 09/07/2015 Appointment: María Elena Appiah WPtel: [address] [place], [place] [phone] 09/06 appointment made and confirmed ~sl FOLLOW UP 09/07/2015 Patient Education: Patient Medication Summary Completed 09/07/2015 Visit Plan: Increase bystolic back to 20 mg daily but will split and take 10mg in AM and 10mg in PM Stress Reducers 08/18/2015 Appointment: María Elena Appiah WPtel: [address] [place], [place] [phone] 08/17/15 appt confirmed cn ACUTE ILLNESS 08/18 Patient Education: Patient Medication Summary Completed 08/18/2015 Appointment: María Elena Appiah WPtel: [address] [place], [place] [id number] BP CHECK 07/07/2015 Patient Education: Patient Medication Summary Completed 07/07/2015 Appointment: María Elena Appiah WPtel: [address] [place] [address] BP CHECK 06/24/2015 Patient Education: Patient Medication Summary Completed 06/24/2015 Appointment: María Elena Appiah WPtel: [address] [place] [address] BP CHECK 06/21/2015 Patient Education: Patient Medication Summary Completed 06/21/2015 Visit Plan: Lab discussed Continue pipere nt meds and lifestyle modification Recheck lab in 6mos 06/16/2015 Appointment: María Elena Appiah WPtel: [address] [place] [address] 06/15 confirmed FOLLOW UP 06/16/2015 Patient Education: Patient Medication Summary Completed 06/16/2015 Patient Education: Patient Medication Summary Completed 06/15/2015 Visit Plan: Increase cymbalta to 60mg q HS Keep clonidine at current dose Recheck 2weeks Change xanax to klonopin 06/02/2015 Appointment: María Elena Appiah WPtel: [address] [place], [place] [phone] 06/02 lm FOLLOW UP 06/02/2015 Patient Education: Patient Medication Summary Completed 06/02/2015 Appointment: María Elena Appiah WPtel: [address] [place] [address] ACUTE ILLNESS 05/24/2015 Visit Plan: Increase clonidine to 0.2mg q HS Add cymbalta 30mg q HS Recheck 2weeks Stress Reducers Check fasting lab Discussed sleep study 05/20/2015 Appointment: María Elena Appiah WPtel: [address] [place] [address] ACUTE ILLNESS 05/20/2015 Patient Education: Patient Medication Summary Completed 05/20/2015 Patient Education: [facility] - [employer] - Cymbalta - 18-64 - Dynamic Portal ID Completed 05/20/2015 Appointment: María Elena Appiah WPtel: [address] [place] [address] BP CHECK 05/19/2015 Patient Education: Patient Medication Summary Completed 05/19/2015 Visit Plan: Topical Bactroban alternatin g with topical betamethasone Recheck 2weeks 05/10/2015 Appointment: María Elena Appiah WPtel: [address] [place] [address] 05/07 cn...05/07 appt confirmed OFFICE SURGER Y 05/10/2015 Patient Education: Patient Medication Summary Completed 05/10/2015 Referral: Patrick Chandler WPtel: [address] Referral Initiated 05/04/2015 Visit Plan: Saline nasal flushes prn. Ty lenol/Motrin prn headache. Notify if persists/symptoms worsening. Depomedrol 40mg IM today 03/16/2015 Appointment: María Elena Appiah WPtel: [address] [place] [address] ACUTE ILLNESS 03/16/2015 Patient Education: Patient Medication Summary Completed 03/16/2015 Appointment: María Elena Appiah WPtel: [address] [place] [address] ER Follow UP 03/09/2015 Visit Plan: Cryotherapy to lesions as ab ove 10/27/2014 Appointment: María Elena Appiah WPtel: [address] [place] [address] OFFICE SURGERY 10/27/2014 Patient Education: Patient Medication Summary Completed 10/27/2014 Appointment: June Flores WPtel: [address] [place] [address] ACUTE ILLNESS 09/11/2014 Patient Education: Patient Medication Summary Completed 09/11/2014 Visit Plan: Lab discussed Lipitor 10mg d aily Coenzyme Q-10 400mg daily Vitamin D3 5000u daily Recheck lipids with LFTs in 3mos then fwup 08/31/2014 Appointment: María Elena Appiah WPtel: [address] [place] [address] 08/28 voicemail FOLLOW UP 08/31/2014 Patient Education: Patient Medication Summary Completed 08/31/2014 Appointment: María Elena Appiah WPtel: [address] [place] [address] [place] LAB 08/27/2014 Appointment: María Elena Appiah WPtel: [address] [place], [place] [phone] [place] LAB 08/27/2014 Patient Education: Patient Medication Summary Completed 08/27/2014 Appointment: María Elena Appiah WPtel: [address] [place] [address] ACUTE ILLNESS 07/23/2014 Appointment: María Elena Appiah WPtel: [address] [place] [address] ACUTE ILLNESS 07/21/2014 Patient Education: Patient Medication Summary Completed 07/21/2014 Visit Plan: Kenalog 40mg IM today Contin ue narendra and singulair Add Flonase 07/15/2014 Appointment: María Elena Appiah WPtel: [address] [place], [place] [address] ACUTE ILLNESS 07/15/2014 Appointment: María Elena Appiah WPtel: [address] [place], [place] [phone] ACUTE ILLNESS 07/15/2014 Patient Education: Patient Medication Summary Completed 07/15/2014 Visit Plan: Will do metolazone 2.5mg prn with 6 potassium and see if causes as severe cramping Trial of of seroquel XR 50mg q PM with evening meal and let us know how works 05/18/2014 Appointment: María Elena Appiah WPtel: [address] [place], [place] [phone] 05/15 left message FOLLOW UP 05/18/2014 Patient Education: Patient Medication Summary Completed 05/18/2014 Appointment: María Elena Appiah WPtel: [address] [place], [place] [phone] LAB 05/14/2014 Patient Education: Patient Medication Summary Completed 05/14/2014 Appointment: María Elena Appiah WPtel: [address] [place], [place] [phone] [place] INJECTION 04/22/2014 Visit Plan: [place] today a nd finish abx given from urgent care 04/21/2014 Appointment: María Elena Appiah WPtel: [address] [place], [place] [id number] [place] INJECTION 04/21/2014 Patient Education: Patient Medication Summary Completed 04/21/2014 Appointment: June Flores WPtel: [address] [place], [place] [phone] ACUTE ILLNESS 03/04/2014 Patient Education: Patient Medication Summary Completed 03/04/2014 Appointment: María Elena Appiah WPtel: [address] [place], [place] [phone] [place] INJECTION 02/27/2014 Patient Education: Patient Medication Summary Completed 02/27/2014 Visit Plan: Cryotherapy as above to all lesions Patient wants to try no meds for insomnia for a while and see how goes 01/13/2014 Appointment: María Elena Appiah WPtel: [address] [place] [address] OFFICE SURGERY 01/13/2014 Patient Education: Patient Medication Summary Completed 01/13/2014 Visit Plan: Stop Melatonin Stop Soma Tri al of trazadone 75mg q HS See ENT for possible tubes as has had chronic ETD and serous otitis media with numerous steroids 12/24/2013 Appointment: María Elena Appiah WPtel: [address] [place] [address] ACUTE ILLNESS 12/24/2013 Patient Education: Patient Medication Summary Completed 12/24/2013 Visit Plan: Saline nasal flushes prn. Ty lenol/Motrin prn headache. Notify if persists/symptoms worsening. 11/12/2013 Appointment: María Elena Appiah WPtel: [address] [place] [address] ACUTE ILLNESS 11/12/2013 Patient Education: Patient Medication Summary Completed 11/12/2013 Appointment: María Elena Appiah WPtel: [address] [place] [address] ACUTE ILLNESS 10/21/2013 Patient Education: Patient Medication Summary Completed 10/21/2013 Visit Plan: Sleep hygiene and sleep rout ine Melatonin 10mg q HS Support stockings and observe 09/22/2013 Appointment: María Elena Appiah WPtel: [address] [place] [address] ACUTE ILLNESS 09/22/2013 Patient Education: Patient Medication Summary Completed 09/22/2013 Appointment: June Flores WPtel: [address] [place] [address] ACUTE ILLNESS 08/27/2013 Patient Education: Patient Medication Summary Completed 08/27/2013 Visit Plan: Proceed with CT scan of head /neck Proceed with occipital nerve injections Butrans 20mcg patch weekly until can get into see Dr. Mcdonough for injections 08/04/2013 Appointment: María Elena Appiahtejaylin: [address] [place] [address] FOLLOW UP 08/04/2013 Patient Education: Patient Medication Summary Completed 08/04/2013 Visit Plan: OMT done Daily neck stretche s, moist heat Increase Celebrex to 200mg BID Add flexeril 07/23/2013 Appointment: María Elean Appiah WPtel: [address] [place] [address] 07/22 voicemail FOLLOW UP 07/23/2013 Patient Education: Patient Medication Summary Completed 07/23/2013 Appointment: María Elena Appiah WPtel: [address] [place] [address] ACUTE ILLNESS 06/23/2013 Patient Education: Patient Medication Summary Completed 06/23/2013 Appointment: María Elena Appiah WPtel: [address] [place] [address] ACUTE ILLNESS 05/26/2013 Patient Education: Patient Medication Summary Completed 05/26/2013 Visit Plan: Decrease clonidine to 0.1mg TID If BP remains stable consider decreasing amlodopine Prednisone for 5 days BP check in 1mo 04/16/2013 Appointment: María Elena Appiah WPtel: [address] [place] [address] 04/14 pt called and confirmed appt FOLLOW UP 04/16/2013 Patient Education: Patient Medication Summary Completed 04/16/2013 Appointment: María Elena Appiah WPtel: [address] [place] [address] ACUTE ILLNESS 03/05/2013 Patient Education: Patient Medication Summary Completed 03/05/2013 Visit Plan: Pt has MARIA ELENA on with Dr. Sharonda Matthews patch Refill Hydrocodone early tomorrow 12/23/2012 Appointment: María Elena Appiah WPtel: [address] [place] [address] FOLLOW UP 12/23/2012 Patient Education: Patient Medication Summary Completed 12/23/2012 Appointment: Lashawn Eckert WPtel: [address] [place] [address] ACUTE ILLNESS 12/16/2012 Patient Education: Patient Medication Summary Completed 12/16/2012 Visit Plan: Proceed with updated MRI of LS spine Continue gabapentin and add soma and diclofenac Will likely need to go for another epidural 12/09/2012 Appointment: María Elena Appiah WPtel: [address] [place] [address] ACUTE ILLNESS 12/09/2012 Patient Education: Patient Medication Summary Completed 12/09/2012 Visit Plan: Injection as above Finish me drol dose pack Chiropracter this afternoon 12/04/2012 Appointment: María Elena Appiah WPtel: [address] [place] [address] ACUTE ILLNESS 12/04/2012 Patient Education: Patient Medication Summary Completed 12/04/2012 Appointment: Mary Tillman WPtel: [address] [place] [address] FOLLOW UP 11/22/2012 Patient Education: Patient Medication Summary Completed 11/22/2012 Appointment: María Elena Appiah WPtel: [address] [place] [address] ACUTE ILLNESS 11/21/2012 Patient Education: Patient Medication Summary Completed 11/21/2012 Appointment: María Elena Appiah WPtel: [address] [place] [address] BP CHECK 11/07/2012 Patient Education: Patient Medication [...] re-check. 10/29/2012 Appointment: Lashawn Eckert WPtel: [address] [place], [place] [id number] ACUTE ILLNESS 10/29/2012 Patient Education: Patient Medication Summary Completed 10/29/2012 Appointment: María Elena Appiah WPtel: [address] [place], [place] [phone] ACUTE ILLNESS 10/14/2012 Patient Education: Patient Medication Summary Completed 10/14/2012 Appointment: María Elena Appiah WPtel: [address] [place], [place] [id number] UA 09/27/2012 Patient Education: Patient Medication Summary Completed 09/27/2012 Appointment: María Elena Appiah WPtel: [address] [place], [place] [id number] ACUTE ILLNESS 09/25/2012 Patient Education: Patient Medication Summary Completed 09/25/2012 Appointment: María Elena Appiah WPtel: [address] [place] [address] BP CHECK 09/24/2012 Appointment: María Elena Appiah WPtel: [address] [place] [address] ACUTE ILLNESS 08/29/2012 Patient Education: Patient Medication Summary Completed 08/29/2012 Visit Plan: Cryotherapy as above See Karlos m for right ear lesion--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 ACUTE ILLNESS 05/06/2012 Patient Education: Patient Medication Summary Completed 05/06/2012 Visit Plan: Pt wants to hold on any furt her sleep medications 04/03/2012 Appointment: María Elena Appiahtel: [address] [place] [address] FOLLOW UP 04/03/2012 Patient Education: Patient Medication Summary Completed 04/03/2012 Appointment: María Elena Appiahtel: [address] [place] [address] FOLLOW UP 03/19/2012 Patient Education: Patient Medication Summary Completed 03/19/2012 Appointment: María Elena Appiahtel: [address] [place] [address] BP CHECK 02/22/2012 Patient Education: Patient Medication Summary Completed 02/22/2012 Appointment: María Elena Appiahtel: [address] [place] [address] BP CHECK 02/21/2012 Patient Education: Patient Medication Summary Completed 02/21/2012 Visit Plan: Doxycycline and bactroban fo r foot Supportive care on ankles and knees Add norvasc for BP 02/20/2012 Appointment: María Elena Appiahtel: [address] [place] [address] ER Follow UP 02/20/2012 Patient Education: Patient Medication Summary Completed 02/20/2012 Appointment: María Elena Appiahtel: [address] [place] [address] ACUTE ILLNESS 01/30/2012 Patient Education: Patient Medication Summary Completed 01/30/2012 Appointment: María Elena Appiahtel: [address] [place] [address] ACUTE ILLNESS 01/24/2012 Patient Education: Patient Medication Summary Completed 01/24/2012 Visit Plan: Daily back stretches, moist heat, Biofreeze prn OMT done 01/10/2012 Appointment: María Elena Appiah WPtel: [address] [place] [address] ACUTE ILLNESS 01/10/2012 Patient Education: Patient Medication Summary Completed 01/10/2012 Appointment: María Elena Appiahtel: [address] [place] [address] FOLLOW UP 12/11/2011 Patient Education: Patient Medication Summary Completed 12/11/2011 Appointment: María Elena Appiah WPtel: [address] [place] [address] ACUTE ILLNESS 11/09/2011 Patient Education: Patient Medication Summary Completed 11/09/2011 Appointment: María Elena Appiahtel: [address] [place] [address] ACUTE ILLNESS 09/13/2011 Patient Education: Patient Medication Summary Completed 09/13/2011 Visit Plan: Check CBC, TSH, Free T4, CMP , ESR, Vit D, B12 now Start Prednisone today 08/31/2011 Appointment: Maíra Elena Appiah WPtel: [address] [place] [address] ACUTE ILLNESS 08/31/2011 Patient Education: Patient Medication Summary Completed 08/31/2011 Appointment: María Elena Appiahtel: [address] [place] [address] [place] INJECTION 07/20/2011 Patient Education: Patient Medication Summary Completed 07/20/2011 Visit Plan: Continue current meds Monite r BP Cont stretches from PT 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 07/06/2011 Appointment: María Elena Appiahtel: [address] [place] [address] FOLLOW UP 07/06/2011 Patient Education: Patient Medication Summary Completed 07/06/2011 Appointment: María Elena Appiahtel: [address] [place] [address] [place] BP CHECK 06/06/2011 Patient Education: Patient Medication Summary Completed 06/06/2011 Visit Plan: Add Bystolic at 2.5mg QAM Ad d Robaxin 750mg 2 po q HS BP check in 2wks 05/22/2011 Appointment: María Elena Appiah WPtel: [address] [place], [place] [id number] FOLLOW UP 05/22/2011 Patient Education: Patient Medication Summary Completed 05/22/2011 Appointment: María Elena Appiah WPtel: [address] [place] [address] ER Follow UP 05/09/2011 Patient Education: Patient Medication Summary Completed 05/09/2011 Appointment: María Elena Appiah WPtel: [address] [place] [address] FOLLOW UP 02/22/2011 Visit Plan: Rx written for Hydrocodone 1 0/325mg #240 See Ortho 02/14/2011 Appointment: María Elena Appiah WPtel: [address] [place] [address] OMT 02/14/2011 Patient Education: Patient Medication Summary [...] lab work. 02/03/2011 Appointment: Lashawn Eckert WPtel: [address] [place], [place] [id number] ACUTE ILLNESS 02/03/2011 Patient Education: Patient Medication Summary Completed 02/03/2011 Visit Plan: OMT done Cont daily stretche s 01/31/2011 Appointment: María Elena Appiah WPtel: [address] [place] [address] ACUTE ILLNESS 01/31/2011 Patient Education: Patient Medication Summary Completed 01/31/2011 Visit Plan: Continue pain meds OMT done Proceed with PT No work this summer01/25/2011 Appointment: María Elena Appiah WPtel: [address] [place] [address] ACUTE ILLNESS 01/25/2011 Patient Education: Patient Medication Summary Completed 01/25/2011 Visit Plan: Start PT Long discussion abo ut getting pain meds from only us and can only have max of 4grams of tylenol per day Change to Hydrocodone 10/325mg 1- 2 po TID prn pain--#180 called to [place] 01/18/2011 Appointment: María Elena Appiah WPtel: [address] [place] [address] FOLLOW UP 01/18/2011 Patient Education: Patient Medication Summary Completed 01/18/2011 Visit Plan: Daily back stretches, moist heat, Biofreeze prn 11/29/2010 Appointment: María Elena Appiah WPtel: [address] [place] [address] ER Follow UP 11/29/2010 Patient Education: Patient Medication Summary Completed 11/29/2010 Visit Plan: Saline nasal flushes prn. Ty lenol/Motrin prn headache. Notify if persists/symptoms worsening. Finish augmentin Add Medrol Dose Pack 10/10/2010 Appointment: María Elena Appiah WPtel: [address] [place] [address] ACUTE ILLNESS 10/10/2010 Patient Education: Patient Medication Summary Completed 10/10/2010 Visit Plan: Cryotherapy x3 to multiple l esions on both forearms 07/19/2010 Appointment: María Elena Appiah WPtel: [address] [place] [address] OFFICE SURGERY 07/19/2010 Patient Education: Patient Medication Summary Completed 07/19/2010 Appointment: María Elena Appiah WPtel: [address] [place] [address] BP CHECK 07/06/2010 Patient Education: Patient Medication Summary Completed 07/06/2010 Appointment: María Elena Appiah WPtel: [address] [place] [address] BP CHECK 06/30/2010 Patient Education: Patient Medication Summary Completed 06/30/2010 Appointment: María Elena Appiah WPtel: [address] [place] [address] BP CHECK 06/20/2010 Patient Education: Patient Medication Summary Completed 06/20/2010 Visit Plan: Change Diovan to Exforge 160 /5mg QD OMT done to thoracics BP check in 2wks 06/07/2010 Appointment: María Elena Appiah WPtel: [address] [place] [address] FOLLOW UP 06/07/2010 Patient Education: Patient Medication Summary Completed 06/07/2010 Appointment: María Elena Appiahtel: [address] [place] [address] BP CHECK 06/03/2010 Patient Education: Patient Medication Summary Completed 06/03/2010 Appointment: María Elena Appiahtel: [address] [place] [address] BP CHECK 06/01/2010 Patient Education: Patient Medication Summary Completed 06/01/2010 Visit Plan: Irritated skin tags to left neck x2 excised at base with scissors and base cauterized 05/30/2010 Appointment: María Elena Appiah WPtel: [address] [place] [address] OFFICE SURGERY 05/30/2010 Patient Education: Patient Medication Summary Completed 05/30/2010 Visit Plan: Saline nasal flushes prn. Ty lenol/Motrin prn headache. Notify if persists/symptoms worsening. Restart Nasonex Has allergy testing set for May 15 04/27/2010 Appointment: María Elena Appiahtel: [address] [place] [address] ACUTE ILLNESS 04/27/2010 Patient Education: Patient Medication Summary Completed 04/27/2010 Visit Plan: Saline nasal flushes prn. Ty lenol/Motrin prn headache. Notify if persists/symptoms worsening. Omnaris BID plus injections 04/05/2010 Appointment: María Elena Appiah WPtel: [address] [place] [address] ACUTE ILLNESS 04/05/2010 Patient Education: Patient Medication Summary Completed 04/05/2010 Visit Plan: Saline nasal flushes prn. Ty lenol/Motrin prn headache. Notify if persists/symptoms worsening. 03/09/2010 Appointment: María Elena Appiahtel: [address] [place] [address] ACUTE ILLNESS 03/09/2010 Patient Education: Patient Medication Summary Completed 03/09/2010 Visit Plan: Cont Clonidine as is Cont Pr emarin Fwup with surgery as scheduled 03/03/2010 Appointment: María Elena Appiahtel: [address] [place] [address] FOLLOW UP 03/03/2010 Patient Education: Patient Medication Summary Completed 03/03/2010 Visit Plan: Check Pelvic US now Chelsey Sal C vs Hysterectomy 01/17/2010 Appointment: María Elena Appiahtel: [address] [place] [address] ACUTE ILLNESS 01/17/2010 Patient Education: Patient Medication Summary Completed 01/17/2010 Visit Plan: Check fasting lab and schedu le Mammogram 2gm Na Diet Trial of Ambien 10mg qhs Fwup pending lab results 12/27/2009 Appointment: María Elena Appiahtel: [address] [place] [address] ESTABLISHED PATIENT 12/27/2009 Patient Education: Patient Medication Summary Completed 12/27/2009 Referral: Canelo Overton WPtel: [phone] [id number] [place] Referral Initiated Referral: Philipp Flores WPtel: [address] [id number] [place] Referral Appointment Requested Instructions Comment . [...]
--- OUTSIDE RECORDS SUMMARY | 2020-03-13 05:57 | XMS REPORT | CCD ---
Author Author Gale Appiah D.O. Organization [facility] Address [address] [place] [id number] Phone Care Team Providers Care Aged Or Disabled Carer Name Role Phone María Elena Appiah D.O., PP Unavailable CCM Unavailable Summary Purpose Interface Exchange Insurance Providers Payer name Policy type / Coverage type Covered constitution party ID Effective Begin Date Effective End Date [facility] Commercial Insurance [id number] Unknown Family History Family History data not found Social History Social History Element Codes Description Effective Dates Tobacco history SNOMED CT: 779136328 Never smoker 05/22/2011 Allergies, Adverse Reactions, Alerts [...] Instructions duloxetine 60 mg capsule,delayed release RxNorm: 545203 1 Capsu le(s) Oral QD 10/17/2019 04/13/2020 Active celecoxib 200 mg capsule RxNorm: 658932 1 Capsule(s) Or al two times a day as needed for pain 10/17/2019 01/14/2020 Active lisinopril 20 mg tablet RxNorm: 041092 1 Tablet(s) Oral QD 10/17/19 20 04/13/2020 Active gabapentin 300 mg capsule RxNorm: 449127 1 Capsule(s) O ral every night at bedtime 10/17/2019 01/15/2020 Active Singulair 10 mg tablet RxNorm: 408385 1 Tablet(s) Oral QD 10/17/2019 04/14/2020 Active Klor-Con 8 mEq tablet,extended release RxNorm: 832302 1 Tablet(s) Oral two times a day 10/17/2019 11/16/2019 Active metoprolol tartrate 100 mg tablet RxNorm: 542985 1 Tabl et(s) Oral two times a day 10/17/2019 04/13/2020 Active clonidine HCl 0.1 mg tablet RxNorm: 944901 1 Tablet(s) Oral fou r times a day 10/17/2019 04/13/2020 Active Januvia 100 mg tablet RxNorm: 074875 1 Tablet(s) Oral QD 10/17/2019 No Stop Date Active Lipitor 10 mg tablet RxNorm: 684598 1 Tablet(s) Oral QD 10/17/2019 Active Steglatro 15 mg tablet RxNorm: 5491468 1 Tablet(s) Oral QD 10/17/19 No Stop Date Active Glyxambi 25 mg-5 mg tablet RxNorm: 8329807 1 Tablet(s) Oral QD 01/202010/16/2019 Inactive Patient will bring in copay discount card as well Glyxambi 25 mg-5 mg tablet RxNorm: 7198237 1 Tablet(s) Oral QD 01/202010/14/2019 Inactive Patient will bring in copay discount card as well Keflex 500 mg capsule RxNorm: 119742 1 Capsule(s) Oral two time s a day 10/07/2019 10/14/2019 Inactive Premarin 1.25 mg tablet RxNorm: 642087 1 Tablet(s) Oral QD 09/30/1906/25/2020 Active hydrocodone 10 mg-acetaminophen 325 mg tablet RxNorm: 188180 1-2 Tablet(s) Oral three times a day as needed for pain 09/30/2019 09/30/2019 Inactive baclofen 10 mg tablet RxNorm: 592769 TAKE ONE TABLET BY MOUTH THREE TIMES A DAY NEEDED 09/19/2019 No Stop Date Active gabapentin 300 mg capsule RxNorm: 023534 TAKE ONE CAPSU LE BY MOUTH EVERY NIGHT AT BEDTIME 09/19/2019 10/16/2019 Inactive Klor-Con 8 mEq tablet,extended release RxNorm: 617329 T FARRUKH ONE TABLET BY MOUTH TWICE A DAY 1 Tablet(s) Oral two times a day 09/19/2019 10/16/2019 Worth ctive hydrocodone 10 mg-acetaminophen 325 mg tablet RxNorm: 380549 1-2 Tablet(s) Oral three times a day as needed for pain 09/19/2019 09/29/2019 Inactive triamterene 75 mg-hydrochlorothiazide 50 mg tablet RxNorm: 3 06536 TAKE ONE TABLET BY MOUTH DAILY 09/11/2019 No Stop Date Active allopurinol 300 mg tablet RxNorm: 337565 TAKE ONE TABLET BY LOPEZ TH DAILY 09/11/2019 No Stop Date Active duloxetine 60 mg capsule,delayed release RxNorm: 913327 TAKE ONE CAPSULE BY MOUTH DAILY 09/11/2019 10/16/2019 Inactive Lipitor 10 mg tablet RxNorm: 811179 TAKE ONE TABLET BY MOUTH AT BEDTIME 09/11/2019 10/16/2019 Inactive lisinopril 20 mg tablet RxNorm: 484276 TAKE ONE TABLET BY MOUTH DAILY .... THIS REPLACE 10MG TABLETS 09/11/2019 10/16/2019 Inactive celecoxib 200 mg capsule RxNorm: 234041 TAKE ONE CAPSUL E BY MOUTH TWICE A DAY NEEDED FOR PAIN 09/11/2019 10/16/2019 Inactive clonidine HCl 0.1 mg tablet RxNorm: 650478 TAKE ONE TAB LET BY MOUTH FOUR TIMES A DAY 09/11/2019 10/16/2019 Inactive doxepin 25 mg capsule RxNorm: 4802673 1 Capsule(s) Oral every night at bedtime as needed for sleep 08/21/2019 11/18/2019 Active hydrocodone 10 mg-acetaminophen 325 mg tablet RxNorm: 065328 1-2 Tablet(s) PO TID 08/12/2019 09/29/2019 Inactive as needed for pa in - Previous quantity #240, will start dosing for #180 in April 2011 per Doctor Td. Medrol (Dustin) 4 mg tablets in a dose pack RxNorm: 681908 Tablet(s) Oral As Directed 07/21/2019 09/29/2019 Inactive Premarin 1.25 mg tablet RxNorm: 344645 1 Tablet(s) Oral QD 07/02/20 19 09/29/2019 Inactive hydrocodone 10 mg-acetaminophen 325 mg tablet RxNorm: 412666 1-2 Tablet(s) PO TID 07/01/2019 08/11/2019 Inactive as needed for pa in - Previous quantity #240, will start dosing for #180 in April 2011 per Doctor Td. gabapentin 300 mg capsule RxNorm: 452986 1 Capsule(s) PO QHS 201809/18/2019 Inactive celecoxib 200 mg capsule RxNorm: 962725 1 Capsule(s) Or al two times a day as needed for pain 06/27/2019 06/27/2019 Inactive furosemide 40 mg tablet RxNorm: 212695 TAKE ONE TABLET BY MOUTH EVERY MORNING NEEDED FOR EDEMA . TAKE WITH POTASSIUM 06/24/2019 No Stop Date Active doxepin 25 mg capsule RxNorm: 7136387 TAKE ONE CAPSULE B Y MOUTH EVERY NIGHT AT BEDTIME NEEDED FOR SLEEP 06/24/2019 08/20/2019 Inactive Singulair 10 mg tablet RxNorm: 035717 TAKE ONE TABLET BY MOUTH JOSÉ Y 06/24/2019 10/16/2019 Inactive lisinopril 20 mg tablet RxNorm: 134541 TAKE ONE TABLET BY MOUTH DAILY .... THIS REPLACE 10MG TABLETS 06/24/2019 09/10/2019 Inactive nystatin-triamcinolone 100,000 unit/g-0.1 % topical cream Rx Norm: 3539304 1 Application Topical two times a day 06/12/2019 06/19/2019 Inactive apply BID for 1 week nystatin-triamcinolone 100,000 unit/g-0.1 % topical cream Rx Norm: 9115342 1 Application Topical two times a day 06/12/2019 06/11/2019 Inactive apply BID for 1 week hydrocodone 10 mg-acetaminophen 325 mg tablet RxNorm: 203871 1-2 Tablet(s) PO QID as needed for pain MUST LAST 30 DAYS 05/28/2019 06/26/2019 Inactiv e (Response to an electronic controlled substance refill request - RxReferenceNumber: [id number]) baclofen 20 mg tablet RxNorm: 254090 1 Tablet(s) PO TID as needed for muscle spasm 05/19/2019 05/27/2019 Inactive gabapentin 300 mg capsule RxNorm: 555553 1 Capsule(s) PO QHS 201805/27/2019 Inactive lisinopril 20 mg tablet RxNorm: 655162 1 Tablet(s) PO Q D TAKE ONE TABLET BY MOUTH DAILY, REPLACES 10 MG DOSE 05/19/2019 06/23/2019 Inactive doxepin 25 mg capsule RxNorm: 9965573 TAKE ONE CAPSULE B Y MOUTH EVERY NIGHT AT BEDTIME NEEDED FOR SLEEP 05/16/2019 06/14/2019 Inactive lisinopril 20 mg tablet RxNorm: 472340 TAKE ONE TABLET BY MOUTH DAILY, REPLACES 10 MG DOSE 05/16/2019 05/18/2019 Inactive Singulair 10 mg tablet RxNorm: 374942 TAKE ONE TABLET BY MOUTH JOSÉ Y 05/16/2019 06/14/2019 Inactive gabapentin 300 mg capsule RxNorm: 150715 1 Capsule(s) PO QHS 201805/04/2019 Inactive estropipate 1.5 mg tablet RxNorm: 333403 1 Tablet(s) PO QD 05/05/2005/27/2019 Inactive estropipate 1.5 mg tablet RxNorm: 990666 1 Tablet(s) PO QD 05/05/20 19 05/04/2019 Inactive gabapentin 300 mg capsule RxNorm: 944726 1 Capsule(s) PO QHS 201805/18/2019 Inactive hydrocodone 10 mg-acetaminophen 325 mg tablet RxNorm: 158524 1-2 Tablet(s) PO QID as needed for pain MUST LAST 30 DAYS 04/25/2019 05/24/2019 Inactiv e (Response to an electronic controlled substance refill request - RxReferenceNumber: [id number]) cyclobenzaprine 10 mg tablet RxNorm: 558441 TAKE ONE TA BLET BY MOUTH THREE TIMES A DAY NEEDED FOR MUSCLE SPASMS 04/24/2019 05/18/2019 Inactive metoprolol tartrate 100 mg tablet RxNorm: 498203 TAKE O NE TABLET BY MOUTH TWICE A DAY 04/24/2019 10/16/2019 Inactive Lyrica 75 mg capsule RxNorm: 377963 1 Capsule(s) PO QHS 03/25/2019 Inactive duloxetine 60 mg capsule,delayed release RxNorm: 409045 TAKE ONE CAPSULE BY MOUTH DAILY 03/21/2019 05/19/2019 Inactive triamterene 75 mg-hydrochlorothiazide 50 mg tablet RxNorm: 3 15424 TAKE ONE TABLET BY MOUTH DAILY 03/21/2019 05/19/2019 Inactive Klor-Con 8 mEq tablet,extended release RxNorm: 909960 T FARRUKH ONE TABLET BY MOUTH TWICE A DAY 03/21/2019 09/18/2019 Inactive Lipitor 10 mg tablet RxNorm: 482969 TAKE ONE TABLET BY MOUTH AT BEDTIME 03/21/2019 09/10/2019 Inactive clonidine HCl 0.1 mg tablet RxNorm: 414223 TAKE ONE TAB LET BY MOUTH FOUR TIMES A DAY 03/21/2019 05/19/2019 Inactive allopurinol 300 mg tablet RxNorm: 176812 TAKE ONE TABLET BY LOPEZ TH DAILY 03/21/2019 05/19/2019 Inactive hydrocodone 10 mg-acetaminophen 325 mg tablet RxNorm: 984414 1-2 Tablet(s) PO QID as needed for pain MUST LAST 30 DAYS 02/28/2019 03/29/2019 Inactiv e (Response to an electronic controlled substance refill request - RxReferencJohn Douglas French Centerber: [id number]) furosemide 40 mg tablet RxNorm: 892634 TAKE ONE TABLET BY MOUTH EVERY MORNING NEEDED FOR EDEMA . TAKE WITH POTASSIUM 02/21/2019 03/22/2019 Inactive cyclobenzaprine 10 mg tablet RxNorm: 021509 TAKE ONE TA BLET BY MOUTH THREE TIMES A DAY NEEDED FOR MUSCLE SPASMS 02/21/2019 04/21/2019 Inactive lisinopril 20 mg tablet RxNorm: 500670 TAKE ONE TABLET BY MOUTH DAILY, REPLACES 10 MG DOSE 02/21/2019 05/15/2019 Inactive doxepin 25 mg capsule RxNorm: 0536560 TAKE ONE CAPSULE B Y MOUTH EVERY NIGHT AT BEDTIME NEEDED FOR SLEEP 02/21/2019 05/15/2019 Inactive nystatin 100,000 unit/gram topical cream RxNorm: 036073 APPLY TO AFFECTED AREA(S) TWO TIMES A DAY 02/21/2019 03/22/2019 Inactive estradiol 1 mg tablet RxNorm: 120898 2 Tablet(s) PO QD replaces premarin 01/22/2019 05/04/2019 Inactive lisinopril 20 mg tablet RxNorm: 501580 TAKE ONE TABLET BY MOUTH DAILY, REPLACES 10 MG DOSE 01/20/2019 02/18/2019 Inactive cyclobenzaprine 10 mg tablet RxNorm: 630460 TAKE ONE TA BLET BY MOUTH THREE TIMES A DAY NEEDED FOR MUSCLE SPASMS 01/20/2019 02/18/2019 Inactive metoprolol tartrate 100 mg tablet RxNorm: 684712 TAKE O NE TABLET BY MOUTH TWICE A DAY 01/20/2019 02/18/2019 Inactive cyclobenzaprine 10 mg tablet RxNorm: 480105 TAKE ONE TA BLET BY MOUTH THREE TIMES A DAY NEEDED FOR MUSCLE SPASMS 12/19/2018 01/17/2019 Inactive lisinopril 20 mg tablet RxNorm: 636283 TAKE ONE TABLET BY MOUTH DAILY, REPLACES 10 MG DOSE 12/19/2018 01/17/2019 Inactive duloxetine 60 mg capsule,delayed release RxNorm: 191269 TAKE ONE CAPSULE BY MOUTH DAILY 12/19/2018 01/17/2019 Inactive Lipitor 10 mg tablet RxNorm: 231113 TAKE ONE TABLET BY MOUTH AT BEDTIME 12/19/2018 01/17/2019 Inactive cyclobenzaprine 10 mg tablet RxNorm: 136228 1 Tablet(s) PO TID as needed for muscle spasm 11/19/2018 12/18/2018 Inactive Singulair 10 mg tablet RxNorm: 380325 1 Tablet(s) PO QD 11/19/2018 Inactive lisinopril 20 mg tablet RxNorm: 390681 TAKE ONE TABLET BY MOUTH DAILY, REPLACES 10 MG DOSE 11/15/2018 12/18/2018 Inactive hydrocodone 10 mg-acetaminophen 325 mg tablet RxNorm: 725188 1-2 Tablet(s) PO QID as needed for pain MUST LAST 30 DAYS 11/13/2018 12/12/2018 Inactiv e (Response to an electronic controlled substance refill request - RxReferenceNumber: [id number]) nystatin 100,000 unit/gram topical cream RxNorm: 265845 APPLY TO AFFECTED AREA(S) TWO TIMES A DAY 10/23/2018 11/06/2018 Inactive lisinopril 20 mg tablet RxNorm: 772188 1 Tablet(s) PO QD replac es 10mg dose 10/18/2018 11/14/2018 Inactive hydrocodone 10 mg-acetaminophen 325 mg tablet RxNorm: 059025 1-2 Tablet(s) QID as needed for pain MUST LAST 30 DAYS 10/08/2018 11/06/2018 Inactive (Response to an electronic controlled substance refill request - RxReferenceNumber: [id number]) lisinopril 10 mg tablet RxNorm: 207573 1 Tablet(s) PO QD 10/03/2018 0 01/21/2019 Inactive Celebrex 200 mg capsule RxNorm: 232901 TAKE ONE CAPSULE BY MOUT H TWICE A DAY 09/30/2018 05/04/2019 Inactive cyclobenzaprine 10 mg tablet RxNorm: 503623 TAKE ONE TA BLET BY MOUTH THREE TIMES A DAY NEEDED FOR MUSCLE SPASMS 09/30/2018 11/18/2018 Inactive doxepin 25 mg capsule RxNorm: 1200139 TAKE ONE CAPSULE B Y MOUTH EVERY NIGHT AT BEDTIME NEEDED 09/05/2018 10/16/2018 Inactive omeprazole 40 mg capsule,delayed release RxNorm: 291781 TAKE ONE CAPSULE BY MOUTH DAILY 09/05/2018 01/21/2019 Inactive furosemide 40 mg tablet RxNorm: 151828 TAKE ONE TABLET BY MOUTH EVERY MORNING NEEDED FOR EDEMA . TAKE WITH POTASSIUM 09/05/2018 11/03/2018 Inactive phentermine 37.5 mg tablet RxNorm: 377686 1 Tablet(s) PO QAM 201701/21/2019 Inactive doxepin 25 mg capsule RxNorm: 1972098 1 Capsule(s) PO QH S as needed for sleep TAKE ONE CAPSULE BY MOUTH EVERY NIGHT AT BEDTIME NEEDED 08/27/2018 09/04/2018 Inactive Keflex 500 mg capsule RxNorm: 704340 1 Capsule(s) PO TID 08/09/2018 1 10/19/2017 Inactive Diflucan 100 mg tablet RxNorm: 281494 1 Tablet(s) PO QD 08/09/2018 Inactive Premarin 1.25 mg tablet RxNorm: 380101 2 Tablet(s) PO QD 08/09/2018 0 05/04/2019 Inactive Zofran ODT 4 mg disintegrating tablet RxNorm: 705099 1 Tablet(s) PO Q4H as needed for nausea 08/09/2018 01/21/2019 Inactive metoprolol tartrate 100 mg tablet RxNorm: 786836 TAKE O NE TABLET BY MOUTH TWICE A DAY 2018 10/04/2018 Inactive doxepin 25 mg capsule RxNorm: 9146545 TAKE ONE CAPSULE B Y MOUTH EVERY NIGHT AT BEDTIME NEEDED 2018 08/26/2018 Inactive cyclobenzaprine 10 mg tablet RxNorm: 556338 TAKE ONE TA BLET BY MOUTH THREE TIMES A DAY NEEDED FOR MUSCLE SPASMS 2018 09/29/2018 Inactive hydrocodone 10 mg-acetaminophen 325 mg tablet RxNorm: 569173 1-2 Tablet(s) QID as needed for pain MUST LAST 30 DAYS 07/29/2018 08/27/2018 Inactive (Response to an electronic controlled substance refill request - RxReferenceNumber: [id number]) nystatin 100,000 unit/gram topical powder RxNorm: 216531 Applic ation TOP BID 07/22/2018 08/04/2018 Inactive doxepin 25 mg capsule RxNorm: 8165276 1 Capsule(s) PO QHS as needed 07/22/2018 08/05/2018 Inactive triamterene 75 mg-hydrochlorothiazide 50 mg tablet RxNorm: 3 32369 TAKE ONE TABLET BY MOUTH DAILY 07/05/2018 10/02/2018 Inactive duloxetine 60 mg capsule,delayed release RxNorm: 577926 TAKE ONE CAPSULE BY MOUTH DAILY 07/05/2018 09/02/2018 Inactive Klor-Con 8 mEq tablet,extended release RxNorm: 887580 T FARRUKH ONE TABLET BY MOUTH TWICE A DAY 07/05/2018 10/02/2018 Inactive Lipitor 10 mg tablet RxNorm: 747396 TAKE ONE TABLET BY MOUTH AT BEDTIME 07/05/2018 09/02/2018 Inactive allopurinol 300 mg tablet RxNorm: 735375 TAKE ONE TABLET BY LOPEZ TH DAILY 07/05/2018 10/02/2018 Inactive clonidine HCl 0.1 mg tablet RxNorm: 903403 TAKE ONE TAB LET BY MOUTH FOUR TIMES A DAY 07/05/2018 10/02/2018 Inactive hydrocodone 10 mg-acetaminophen 325 mg tablet RxNorm: 610985 1-2 Tablet(s) QID as needed for pain MUST LAST 30 DAYS 06/28/2018 07/27/2018 Inactive (Response to an electronic controlled substance refill request - RxReferenceNumber: [id number]) MediHoney (calcium alginate-honey) 4" X 5" bandage RxNorm: 1 Application TOP QD 06/17/2018 06/26/2018 Inactive honey-hydrocolloid dressing 4" X 5" RxNorm: 1 Application TOP QD 06/17/2018 07/16/2018 Inactive furosemide 40 mg tablet RxNorm: 120530 TAKE ONE TABLET BY MOUTH EVERY MORNING NEEDED FOR EDEMA . TAKE WITH POTASSIUM 06/10/2018 07/09/2018 Inactive This is a refill request. hydrocodone 10 mg-acetaminophen 325 mg tablet RxNorm: 502903 1-2 Tablet(s) QID as needed for pain MUST LAST 30 DAYS 05/30/2018 06/27/2018 Inactive (Response to an electronic controlled substance refill request - RxReferenceNumber: [id number]) acyclovir 800 mg tablet RxNorm: 808385 1 Tablet(s) PO 5x day 201705/22/2018 Inactive Premarin 1.25 mg tablet RxNorm: 942414 1-2 Tablet(s) PO QD 09/01/27 1807/13/2018 Inactive cyclobenzaprine 10 mg tablet RxNorm: 910816 1 Tablet(s) PO TID as needed for muscle spasm 05/09/2018 05/08/2018 Inactive Medrol (Dustin) 4 mg tablets in a dose pack RxNorm: 277072 Tablet(s) PO As Directed 05/02/2018 06/16/2018 Inactive hydrocodone 10 mg-acetaminophen 325 mg tablet RxNorm: 056206 1-2 Tablet(s) QID as needed for pain MUST LAST 30 DAYS 04/30/2018 05/29/2018 Inactive (Response to an electronic controlled substance refill request - RxReferenceNumber: [id number]) duloxetine 60 mg capsule,delayed release RxNorm: 253991 TAKE ONE CAPSULE BY MOUTH DAILY 04/16/2018 05/15/2018 Inactive Celebrex 200 mg capsule RxNorm: 536371 TAKE ONE CAPSULE BY MOUT H TWICE A DAY 04/16/2018 06/14/2018 Inactive Singulair 10 mg tablet RxNorm: 721286 TAKE ONE TABLET BY MOUTH JOSÉ Y 04/16/2018 11/19/2018 Inactive Lipitor 10 mg tablet RxNorm: 266778 TAKE ONE TABLET BY MOUTH AT BEDTIME 04/16/2018 05/15/2018 Inactive hydrocodone 10 mg-acetaminophen 325 mg tablet RxNorm: 484757 1-2 Tablet(s) QID as needed for pain MUST LAST 30 DAYS 03/29/2018 04/27/2018 Inactive (Response to an electronic controlled substance refill request - RxReferenceNumber: [id number]) cyclobenzaprine 10 mg tablet RxNorm: 302506 1 Tablet(s) PO TID as needed for muscle spasm 03/18/2018 05/09/2018 Inactive omeprazole 40 mg capsule,delayed release RxNorm: 046478 1 Capsu le(s) PO QD 02/26/2018 08/24/2018 Inactive hydrocodone 10 mg-acetaminophen 325 mg tablet RxNorm: 208039 1-2 Tablet(s) QID as needed for pain MUST LAST 30 DAYS 02/26/2018 03/27/2018 Inactive (Response to an electronic controlled substance refill request - RxReferenceNumber: [id number]) metoprolol tartrate 100 mg tablet RxNorm: 944719 1 Tablet(s) PO BID 02/18/2018 08/05/2018 Inactive Lyrica 75 mg capsule RxNorm: 905593 1 Capsule(s) PO QHS 01/30/2018 Inactive phentermine 37.5 mg tablet RxNorm: 206460 1 Tablet(s) PO QAM 201706/16/2018 Inactive hydrocodone 10 mg-acetaminophen 325 mg tablet RxNorm: 307543 1-2 Tablet(s) QID as needed for pain MUST LAST 30 DAYS 01/29/2018 02/25/2018 Inactive (Response to an electronic controlled substance refill request - RxReferenceNumber: [id number]) Klor-Con 8 mEq tablet,extended release RxNorm: 604747 1 Tablet( s) PO BID 01/14/2018 07/04/2018 Inactive allopurinol 300 mg tablet RxNorm: 583224 1 Tablet(s) PO QD 01/15/20 18 07/04/2018 Inactive Lipitor 10 mg tablet RxNorm: 459090 1 Tablet(s) PO QHS 01/14/201812/2017 Inactive triamterene 75 mg-hydrochlorothiazide 50 mg tablet RxNorm: 3 87320 1 Tablet(s) PO QD 01/14/2018 07/04/2018 Inactive hydrocodone 10 mg-acetaminophen 325 mg tablet RxNorm: 148359 1-2 Tablet(s) QID as needed for pain MUST LAST 30 DAYS 12/27/2017 01/25/2018 Inactive (Response to an electronic controlled substance refill request - RxReferenceNumber: [id number]) Onglyza 5 mg tablet RxNorm: 143282 1 Tablet(s) PO QD 12/18/201701/29 Inactive metformin 500 mg tablet RxNorm: 806761 1 Tablet(s) PO BID 12/11/2017 12/10/2017 Inactive metformin 500 mg tablet RxNorm: 081277 1 Tablet(s) PO BID 12/11/2017 12/17/2017 Inactive furosemide 40 mg tablet RxNorm: 182215 1 Tablet(s) PO Q AM prn edema--take with potassium 12/11/2017 06/08/2018 Inactive cyclobenzaprine 10 mg tablet RxNorm: 082483 1 Tablet(s) PO TID as needed for muscle spasm 12/11/2017 03/18/2018 Inactive hydrocodone 10 mg-acetaminophen 325 mg tablet RxNorm: 846033 1-2 Tablet(s) QID as needed for pain MUST LAST 30 DAYS 10/23/2017 11/21/2017 Inactive (Response to an electronic controlled substance refill request - RxReferenceNumber: [id number]) Lipitor 10 mg tablet RxNorm: 673423 1 Tablet(s) PO QHS 10/16/201703/2018 Inactive cyclobenzaprine 10 mg tablet RxNorm: 408954 1 Tablet(s) PO TID as needed for muscle spasm 10/09/2017 12/10/2017 Inactive hydroxyzine HCl 25 mg tablet RxNorm: 570854 1 Tablet(s) PO BID as needed for anxiety 09/20/2017 01/29/2018 Inactive Effexor XR 75 mg capsule,extended release RxNorm: 817929 1 Caps ule(s) PO QD 09/20/2017 01/29/2018 Inactive metoprolol tartrate 100 mg tablet RxNorm: 720349 1 Tablet(s) PO BID 08/20/2017 02/18/2018 Inactive baclofen 20 mg tablet RxNorm: 593035 1 Tablet(s) PO TID as needed for muscle spasm 08/20/2017 01/21/2019 Inactive clonidine HCl 0.1 mg tablet RxNorm: 423298 1 Tablet(s) PO QID 08/2005/16/2018 Inactive Seroquel 25 mg tablet RxNorm: 778421 1 Tablet(s) PO QHS 08/17/2017 Inactive Seroquel 25 mg tablet RxNorm: 399547 1 Tablet(s) PO QHS 08/17/2017 Inactive Diflucan 100 mg tablet RxNorm: 140485 TAKE ONE TABLET BY MOUTH JOSÉ Y 07/25/2017 08/07/2017 Inactive hydrocodone 10 mg-acetaminophen 325 mg tablet RxNorm: 347331 1-2 Tablet(s) QID as needed for pain MUST LAST 30 DAYS 07/19/2017 08/17/2017 Inactive (Response to an electronic controlled substance refill request - RxReferenceNumber: [id number]) clindamycin 300 mg capsule RxNorm: 338101 1 Capsule(s) PO TID 07/1907/28/2017 Inactive clotrimazole-betamethasone 1 %-0.05 % topical cream RxNorm: 978137 Application TOP BID to elbow rash 07/19/2017 06/16/2018 Inactive Singulair 10 mg tablet RxNorm: 881094 Tablet(s) TAKE ONE TABLET BY MOUTH DAILY 07/18/2017 04/13/2018 Inactive triamterene 75 mg-hydrochlorothiazide 50 mg tablet RxNorm: 3 49582 1 Tablet(s) PO QD 07/18/2017 01/14/2018 Inactive Celebrex 200 mg capsule RxNorm: 790524 Capsule(s) TAKE ONE CAPSULE BY MOUTH TWICE A DAY 07/18/2017 10/15/2017 Inactive hydrocodone 10 mg-acetaminophen 325 mg tablet RxNorm: 183280 1-2 Tablet(s) QID as needed for pain MUST LAST 30 DAYS 06/19/2017 07/18/2017 Inactive (Response to an electronic controlled substance refill request - RxReferenceNumber: [id number]) hydrocodone 10 mg-acetaminophen 325 mg tablet RxNorm: 508538 1-2 Tablet(s) QID as needed for pain MUST LAST 30 DAYS 06/19/2017 06/18/2017 Inactive (Response to an electronic controlled substance refill request - RxReferenceNumber: [id number]) baclofen 20 mg tablet RxNorm: 705346 1 Tablet(s) PO TID as needed for muscle spasm 06/18/2017 08/20/2017 Inactive Medrol (Dustin) 4 mg tablets in a dose pack RxNorm: 539300 Tablet(s) PO As Directed 06/05/2017 07/18/2017 Inactive omeprazole 40 mg capsule,delayed release RxNorm: 871469 1 Capsu le(s) PO QD 04/20/2017 10/16/2017 Inactive Premarin 1.25 mg tablet RxNorm: 391825 1-2 Tablet(s) PO QD 04/11/20 17 05/15/2018 Inactive duloxetine 60 mg capsule,delayed release RxNorm: 553966 1 Capsu le(s) PO QD 04/11/2017 09/19/2017 Inactive furosemide 40 mg tablet RxNorm: 444486 1 Tablet(s) PO Q AM prn edema--take with potassium 04/11/2017 12/11/2017 Inactive Klor-Con 8 mEq tablet,extended release RxNorm: 018432 1 Tablet( s) PO BID 04/11/2017 01/14/2018 Inactive Lipitor 10 mg tablet RxNorm: 357503 1 Tablet(s) PO QHS 04/11/201702/2018 Inactive amlodipine 5 mg-benazepril 20 mg capsule RxNorm: 376142 1 Capsu le(s) PO QD 04/11/2017 01/29/2018 Inactive allopurinol 300 mg tablet RxNorm: 462391 1 Tablet(s) PO QD 04/11/20 17 01/14/2018 Inactive clonidine HCl 0.1 mg tablet RxNorm: 192304 1 Tablet(s) PO QID 04/0508/19/2017 Inactive baclofen 20 mg tablet RxNorm: 438507 1 Tablet(s) PO TID as needed for muscle spasm 04/02/2017 06/18/2017 Inactive Premarin 1.25 mg tablet RxNorm: 086563 1-2 Tablet(s) PO QD 03/20/20 17 04/10/2017 Inactive hydrocodone 10 mg-acetaminophen 325 mg tablet RxNorm: 052870 1-2 Tablet(s) QID as needed for pain MUST LAST 30 DAYS 03/14/2017 01/21/2019 Inactive (Response to an electronic controlled substance refill request - RxReferenceNumber: [id number]) metoprolol tartrate 100 mg tablet RxNorm: 713866 1 Tablet(s) PO BID 02/12/2017 08/20/2017 Inactive hydrocodone 10 mg-acetaminophen 325 mg tablet RxNorm: 550533 1-2 Tablet(s) QID as needed for pain MUST LAST 30 DAYS 02/08/2017 03/09/2017 Inactive (Response to an electronic controlled substance refill request - RxReferenceNumber: [id number]) metoprolol tartrate 100 mg tablet RxNorm: 166829 TAKE O NE TABLET BY MOUTH TWICE A DAY 01/11/2017 02/12/2017 Inactive metoprolol tartrate 100 mg tablet RxNorm: 658396 1 Tablet(s) PO BID 12/18/2016 12/17/2016 Inactive metoprolol tartrate 100 mg tablet RxNorm: 362840 1 Tablet(s) PO BID 12/18/2016 01/10/2017 Inactive furosemide 40 mg tablet RxNorm: 479387 1 Tablet(s) PO Q AM prn edema--take with potassium 12/13/2016 02/10/2017 Inactive amitriptyline 100 mg tablet RxNorm: 704927 1 Tablet(s) PO QHS 11/2812/12/2016 Inactive baclofen 20 mg tablet RxNorm: 079264 1 Tablet(s) PO TID as needed for muscle spasm 11/14/2016 04/01/2017 Inactive triamterene 75 mg-hydrochlorothiazide 50 mg tablet RxNorm: 3 33277 1 Tablet(s) PO QD 11/14/2016 11/13/2016 Inactive metolazone 2.5 mg tablet RxNorm: 445062 TAKE ONE TABLET BY MOUTH DAILY NEEDED FOR EDEMA 11/14/2016 12/12/2016 Inactive triamterene 75 mg-hydrochlorothiazide 50 mg tablet RxNorm: 3 62409 1 Tablet(s) PO QD 11/14/2016 07/18/2017 Inactive amitriptyline 50 mg tablet RxNorm: 285721 TAKE ONE TABL ET BY MOUTH AT BEDTIME NEEDED FOR SLEEP 11/14/2016 11/27/2016 Inactive Cymbalta 60 mg capsule,delayed release RxNorm: 387944 1 Capsule (s) PO QHS 11/14/2016 12/12/2016 Inactive clonidine HCl 0.1 mg tablet RxNorm: 946695 1 Tablet(s) PO QID 11/1304/04/2017 Inactive amitriptyline 50 mg tablet RxNorm: 478488 1 Tablet(s) P O QHS as needed for sleep 11/01/2016 11/27/2016 Inactive duloxetine 60 mg capsule,delayed release RxNorm: 843409 TAKE ONE CAPSULE BY MOUTH DAILY 10/20/2016 01/17/2017 Inactive allopurinol 300 mg tablet RxNorm: 113257 TAKE ONE TABLET BY LOPEZ TH DAILY 10/20/2016 01/16/2017 Inactive Lyrica 75 mg capsule RxNorm: 376955 TAKE ONE CAPSULE BY MOUTH EVERY NIGHT AT BEDTIME 10/20/2016 12/10/2016 Inactive Klor-Con 8 mEq tablet,extended release RxNorm: 370320 T FARRUKH ONE TABLET BY MOUTH TWICE A DAY 10/20/2016 01/17/2017 Inactive Celebrex 200 mg capsule RxNorm: 748139 TAKE ONE CAPSULE BY MOUT H TWICE A DAY 10/20/2016 07/18/2017 Inactive Bystolic 10 mg tablet RxNorm: 499755 TAKE ONE TABLET BY MOUTH EVERY NIGHT AT BEDTIME 10/20/2016 12/17/2016 Inactive amlodipine 5 mg-benazepril 20 mg capsule RxNorm: 924402 TAKE ONE CAPSULE BY MOUTH EVERY NIGHT AT BEDTIME -- TO REPLACE AMLODOPINE 10/20/20162016 Inactive Lipitor 10 mg tablet RxNorm: 529558 TAKE ONE TABLET BY MOUTH EVERY NIGHT AT BEDTIME 10/20/2016 01/17/2017 Inactive alprazolam 0.5 mg tablet RxNorm: 926187 3 Tablet(s) PO QHS as needed for sleep/anxiety 09/20/2016 10/31/2016 Inactive Tamiflu 75 mg capsule RxNorm: 116151 1 Capsule(s) PO QD 09/19/2016 Inactive Lyrica 75 mg capsule RxNorm: 719145 1 Capsule(s) PO QHS 09/19/2016 Inactive prednisone 20 mg tablet RxNorm: 206433 1 Tablet(s) PO QD 08/10/2016 1 10/17/2015 Inactive doxycycline hyclate 100 mg capsule RxNorm: 6830345 1 Capsule(s) PO BID 08/10/2016 08/19/2016 Inactive Medrol (Dustin) 4 mg tablets in a dose pack RxNorm: 054583 Tablet(s) PO As Directed 07/31/2016 08/22/2016 Inactive Singulair 10 mg tablet RxNorm: 556977 TAKE ONE TABLET BY MOUTH JOSÉ Y 07/27/2016 07/18/2017 Inactive hydrocodone 10 mg-acetaminophen 325 mg tablet RxNorm: 234057 1-2 Tablet(s) QID as needed for pain MUST LAST 30 DAYS 07/26/2016 08/24/2016 Inactive (Response to an electronic controlled substance refill request - RxReferenceNumber: [id number]) alprazolam 0.5 mg tablet RxNorm: 449227 3 Tablet(s) PO QHS as needed for anxiety or sleep 07/26/2016 09/20/2016 Inactive clindamycin 300 mg capsule RxNorm: 867126 1 Capsule(s) PO TID 07/2007/29/2016 Inactive Diflucan 100 mg tablet RxNorm: 209153 1 Tablet(s) PO QD 07/20/2016 Inactive Levaquin 500 mg tablet RxNorm: 120494 1 Tablet(s) PO QD 07/17/2016 Inactive Levaquin 500 mg tablet RxNorm: 062705 1 Tablet(s) PO QD 07/10/2016 Inactive Levaquin 500 mg tablet RxNorm: 633632 1 Tablet(s) PO QD 07/10/2016 Inactive mupirocin 2 % topical ointment RxNorm: 060091 TOP Apply topically to affected areas twice daily 07/06/2016 09/18/2016 Inactive Singulair 10 mg tablet RxNorm: 975705 TAKE ONE TABLET BY MOUTH JOSÉ Y 06/21/2016 01/21/2019 Inactive alprazolam 0.5 mg tablet RxNorm: 974807 TAKE THREE TABL ETS BY MOUTH AT BEDTIME NEEDED FOR SLEEP OR STRESS 05/22/2016 06/20/2016 Inactive triamterene 75 mg-hydrochlorothiazide 50 mg tablet RxNorm: 3 76887 1 Tablet(s) PO QD 04/26/2016 10/21/2016 Inactive Premarin 1.25 mg tablet RxNorm: 265789 1-2 Tablet(s) PO QD 04/26/20 16 03/20/2017 Inactive Klor-Con 8 mEq tablet,extended release RxNorm: 986420 1 Tablet( s) PO BID 04/26/2016 10/19/2016 Inactive Celebrex 200 mg capsule RxNorm: 175692 1 Capsule(s) PO BID TAKE ONE CAPSULE BY MOUTH EVERY DAY 04/26/2016 10/19/2016 Inactive Lipitor 10 mg tablet RxNorm: 424465 1 Tablet(s) PO QHS 04/26/201605/2017 Inactive allopurinol 300 mg tablet RxNorm: 694420 1 Tablet(s) PO QD TAKE ONE TABLET BY MOUTH EVERY DAY 04/26/2016 10/19/2016 Inactive amlodipine 5 mg-benazepril 20 mg capsule RxNorm: 480897 1 Capsule(s) PO QHS replaces amlodopine 04/26/2016 10/19/2016 Inactive duloxetine 60 mg capsule,delayed release RxNorm: 115858 1 Capsu le(s) PO QD 04/26/2016 10/19/2016 Inactive Bystolic 10 mg tablet RxNorm: 842279 1 Tablet(s) PO QHS 04/26/2016 Inactive Singulair 10 mg tablet RxNorm: 058407 1 Tablet(s) PO QD TAKE ONE TABLET BY MOUTH DAILY 04/26/2016 06/20/2016 Inactive clonidine HCl 0.1 mg tablet RxNorm: 286219 1 Tablet(s) PO QID 04/2610/22/2016 Inactive hydrocodone 10 mg-acetaminophen 325 mg tablet RxNorm: 228967 1-2 Tablet(s) QID as needed for pain TAKE ONE TO TWO TABLETS BY MOUTH FOUR TIMES A DAY . MUST LAST 30 DAYS 03/31/2016 04/29/2016 Inactive (Response to an electronic controlled substance refill request - RxReferenceNumber: [id number]) Klor-Con 8 mEq tablet,extended release RxNorm: 899730 T FARRKUH ONE TABLET BY MOUTH TWICE A DAY 03/24/2016 09/29/2019 Inactive prednisone 20 mg tablet RxNorm: 894139 1 Tablet(s) PO QD 03/09/2016 0 03/08/2016 Inactive prednisone 20 mg tablet RxNorm: 717079 1 Tablet(s) PO QD 03/09/2016 0 03/13/2016 Inactive alprazolam 0.5 mg tablet RxNorm: 202603 3 Tablet(s) PO QHS as needed for sleep/stress 03/02/2016 01/21/2019 Inactive mupirocin 2 % topical ointment RxNorm: 860342 TOP twice daily to affected areas of face and neck 02/21/2016 04/25/2016 Inactive clonidine HCl 0.1 mg tablet RxNorm: 544135 TAKE ONE TAB LET BY MOUTH FOUR TIMES A DAY 02/15/2016 09/29/2019 Inactive clonidine HCl 0.1 mg tablet RxNorm: 395776 1 Tablet(s) PO QID 02/1404/25/2016 Inactive Premarin 1.25 mg tablet RxNorm: 866141 1-2 Tablet(s) PO QD 02/15/20 16 03/15/2016 Inactive Klor-Con 8 mEq tablet,extended release RxNorm: 220237 T FARRUKH ONE TABLET BY MOUTH TWICE A DAY 02/15/2016 03/15/2016 Inactive potassium chloride ER 20 mEq tablet,extended release(part/cr yst) RxNorm: 847806 2 Tablet(s) PO BID 02/15/2016 03/15/2016 Inactive Macrobid 100 mg capsule RxNorm: 381156 1 Capsule(s) PO BID 01/24/20 16 01/30/2016 Inactive prednisone 20 mg tablet RxNorm: 409289 Take 3tabs PO QD x 2 days, then 2 tabs PO QD x 2 days, then 1 tab PO QD x 2 days, then 1/2 tab PO QDy x 2 days 12/23/2015 04/25/2016 Inactive Klor-Con 8 mEq tablet,extended release RxNorm: 066555 T FARRUKH ONE TABLET BY MOUTH TWICE A DAY 12/20/2015 02/14/2016 Inactive alprazolam 1 mg tablet RxNorm: 697321 1 1/2 Tablet(s) PO QHS 201501/23/2016 Inactive nystatin 100,000 unit/gram topical cream RxNorm: 049427 APPLY TO AFFECTED AREA(S) TWO TIMES A DAY 11/30/2015 12/14/2015 Inactive Singulair 10 mg tablet RxNorm: 819661 TAKE ONE TABLET BY MOUTH JOSÉ Y 11/18/2015 04/25/2016 Inactive allopurinol 300 mg tablet RxNorm: 132577 1 Tablet(s) PO QD TAKE ONE TABLET BY MOUTH EVERY DAY 10/26/2015 04/22/2016 Inactive Singulair 10 mg tablet RxNorm: 612244 TAKE ONE TABLET BY MOUTH JOSÉ Y 10/26/2015 11/17/2015 Inactive duloxetine 60 mg capsule,delayed release RxNorm: 453358 1 Capsu le(s) PO QD 10/26/2015 04/22/2016 Inactive triamterene 75 mg-hydrochlorothiazide 50 mg tablet RxNorm: 3 99832 1 Tablet(s) PO QD 10/26/2015 11/14/2016 Inactive potassium chloride ER 20 mEq tablet,extended release(part/cr yst) RxNorm: 183063 2 Tablet(s) PO BID 10/26/2015 02/14/2016 Inactive Lipitor 10 mg tablet RxNorm: 070268 1 Tablet(s) PO QHS 10/26/2015 Inactive amlodipine 5 mg-benazepril 20 mg capsule RxNorm: 010734 1 Capsule(s) PO QHS replaces amlodopine 10/26/2015 04/22/2016 Inactive Bystolic 10 mg tablet RxNorm: 019377 1 Tablet(s) PO QHS 10/26/2015 Inactive amlodipine 5 mg-benazepril 20 mg capsule RxNorm: 866520 1 Capsule(s) PO QHS replaces amlodopine 10/06/2015 10/25/2015 Inactive amlodipine 5 mg tablet RxNorm: 388463 1 Tablet(s) PO QHS 09/30/2015 0 04/25/2016 Inactive metolazone 2.5 mg tablet RxNorm: 194516 TAKE ONE TABLET BY MOUTH DAILY NEEDED FOR EDEMA 09/30/2015 01/21/2019 Inactive duloxetine 60 mg capsule,delayed release RxNorm: 194206 1 Capsu le(s) PO QD 09/30/2015 10/25/2015 Inactive cephalexin 500 mg capsule RxNorm: 331069 1 Capsule(s) PO BID 201509/23/2015 Inactive mupirocin 2 % topical ointment RxNorm: 236373 TOP twice daily to affected areas of face and neck 09/14/2015 02/20/2016 Inactive baclofen 20 mg tablet RxNorm: 922405 1 Tablet(s) PO TID as needed for muscle spasm 09/01/2015 11/14/2016 Inactive clonidine HCl 0.1 mg tablet RxNorm: 852426 1 Tablet(s) PO QID 09/0102/14/2016 Inactive alprazolam 1 mg tablet RxNorm: 691212 1 1/2 Tablet(s) PO QHS 201409/09/2015 Inactive baclofen 20 mg tablet RxNorm: 285430 1 Tablet(s) PO TID as needed for muscle spasm 07/23/2015 09/01/2015 Inactive omeprazole 40 mg capsule,delayed release RxNorm: 964317 1 Capsu le(s) PO QD 07/23/2015 04/25/2016 Inactive alprazolam 1 mg tablet RxNorm: 233930 1 1/2 Tablet(s) PO QHS 201408/10/2015 Inactive Bystolic 10 mg tablet RxNorm: 997539 1 Tablet(s) PO BID 06/24/2015 Inactive allopurinol 300 mg tablet RxNorm: 842749 1 Tablet(s) PO QD TAKE ONE TABLET BY MOUTH EVERY DAY 06/23/2015 10/20/2015 Inactive alprazolam 1 mg tablet RxNorm: 812101 1 1/2 Tablet(s) PO QHS 201407/06/2015 Inactive clonidine HCl 0.1 mg tablet RxNorm: 772709 1 Tablet(s) PO QID 06/0209/01/2015 Inactive clonidine HCl 0.1 mg tablet RxNorm: 773776 1 Tablet(s) PO QID 06/0206/01/2015 Inactive Cymbalta 60 mg capsule,delayed release RxNorm: 163964 1 Capsule (s) PO QHS 06/02/2015 08/30/2015 Inactive Cymbalta 60 mg capsule,delayed release RxNorm: 882285 1 Capsule (s) PO QHS 06/02/2015 06/01/2015 Inactive clonidine HCl 0.1 mg tablet RxNorm: 343457 1 Tablet(s) PO TID 05/3106/01/2015 Inactive replaces 0.2mg dose metolazone 2.5 mg tablet RxNorm: 491322 TAKE ONE TABLET BY MOUTH DAILY NEEDED FOR EDEMA 05/21/2015 06/19/2015 Inactive Singulair 10 mg tablet RxNorm: 509805 TAKE ONE TABLET BY MOUTH JOSÉ Y 05/21/2015 10/17/2015 Inactive Cymbalta 30 mg capsule,delayed release RxNorm: 649917 1 Capsule (s) PO QHS 05/20/2015 11/14/2016 Inactive betamethasone valerate 0.1 % topical cream RxNorm: 665393 Appli cation TOP BID 05/10/2015 04/25/2016 Inactive Bactroban 2 % topical ointment RxNorm: 160833 Application TOP BID 0 05/10/2015 06/20/2015 Inactive baclofen 20 mg tablet RxNorm: 082333 1 Tablet(s) PO TID as needed 0 04/26/2015 07/23/2015 Inactive Lipitor 10 mg tablet RxNorm: 419185 1 Tablet(s) PO QHS 04/26/201508/2016 Inactive clonidine HCl 0.1 mg tablet RxNorm: 208294 1 Tablet(s) PO TID 04/2605/30/2015 Inactive replaces 0.2mg dose Klor-Con 8 mEq tablet,extended release RxNorm: 309114 1 Tablet( s) PO BID 04/26/2015 04/25/2016 Inactive metolazone 2.5 mg tablet RxNorm: 612837 1 Tablet(s) PO QD as ne eded for edema 04/26/2015 04/25/2015 Inactive triamterene 75 mg-hydrochlorothiazide 50 mg tablet RxNorm: 3 34429 1 Tablet(s) PO QD 04/26/2015 10/22/2015 Inactive Premarin 1.25 mg tablet RxNorm: 631678 1-2 Tablet(s) PO QD 04/26/20 15 10/22/2015 Inactive Bystolic 10 mg tablet RxNorm: 005538 1 Tablet(s) PO QAM TAKE ONE TABLET BY MOUTH EVERY MORNING 04/23/2015 06/23/2015 Inactive clonidine HCl 0.1 mg tablet RxNorm: 751355 1 Tablet(s) PO TID 03/2304/25/2015 Inactive replaces 0.2mg dose nystatin 100,000 unit/gram topical cream RxNorm: 759234 Applica tion TOP BID 03/23/2015 06/20/2015 Inactive baclofen 20 mg tablet RxNorm: 048454 1 Tablet(s) PO TID as needed 0 03/23/2015 04/25/2015 Inactive Premarin 1.25 mg tablet RxNorm: 647073 1-2 Tablet(s) PO QD 03/23/20 15 04/25/2015 Inactive Klor-Con 8 mEq tablet,extended release RxNorm: 301606 1 Tablet( s) PO BID 03/23/2015 04/25/2015 Inactive cefdinir 300 mg capsule RxNorm: 892539 2 Capsule(s) PO QD 03/16/2015 03/25/2015 Inactive baclofen 20 mg tablet RxNorm: 262668 1 Tablet(s) PO TID as needed 0 03/02/2015 03/22/2015 Inactive allopurinol 300 mg tablet RxNorm: 773361 1 Tablet(s) PO QD TAKE ONE TABLET BY MOUTH EVERY DAY 02/22/2015 05/22/2015 Inactive Klor-Con M20 mEq tablet,extended release RxNorm: 303873 2 Tablet(s) PO BID to use with lasix 02/22/2015 06/20/2015 Inactive clonidine HCl 0.1 mg tablet RxNorm: 039154 1 Tablet(s) PO TID 02/1903/22/2015 Inactive replaces 0.2mg dose Lipitor 10 mg tablet RxNorm: 382450 1 Tablet(s) PO QHS 01/20/201506/2015 Inactive Lipitor 10 mg tablet RxNorm: 215927 1 Tablet(s) PO QHS 01/20/2015 Inactive Singulair 10 mg tablet RxNorm: 358871 1 Tablet(s) PO QD TAKE ONE TABLET BY MOUTH EVERY DAY 11/20/2014 05/18/2015 Inactive Lipitor 10 mg tablet RxNorm: 164045 1 Tablet(s) PO QHS 11/20/201408/2015 Inactive allopurinol 300 mg tablet RxNorm: 956224 1 Tablet(s) PO QD TAKE ONE TABLET BY MOUTH EVERY DAY 11/20/2014 02/16/2015 Inactive Bystolic 10 mg tablet RxNorm: 182425 1 Tablet(s) PO QAM TAKE ONE TABLET BY MOUTH EVERY MORNING 11/20/2014 04/22/2015 Inactive Klor-Con 8 mEq tablet,extended release RxNorm: 148191 1 Tablet( s) PO BID 11/20/2014 02/17/2015 Inactive baclofen 20 mg tablet RxNorm: 732725 1 Tablet(s) PO TID as needed 0 11/20/2014 01/21/2019 Inactive baclofen 20 mg tablet RxNorm: 204401 1 Tablet(s) PO TID as needed 0 10/27/2014 11/19/2014 Inactive baclofen 20 mg tablet RxNorm: 835057 1 Tablet(s) PO TID as needed 0 10/26/2014 03/01/2015 Inactive allopurinol 300 mg tablet RxNorm: 218851 1 Tablet(s) PO QD TAKE ONE TABLET BY MOUTH EVERY DAY 10/26/2014 11/20/2014 Inactive Bystolic 10 mg tablet RxNorm: 406017 1 Tablet(s) PO QAM TAKE ONE TABLET BY MOUTH EVERY MORNING 10/26/2014 11/20/2014 Inactive clonidine HCl 0.1 mg tablet RxNorm: 919328 1 Tablet(s) PO TID 09/2805/27/2019 Inactive replaces 0.2mg dose clonidine HCl 0.1 mg tablet RxNorm: 768966 1 Tablet(s) PO TID 09/2802/18/2015 Inactive replaces 0.2mg dose baclofen 20 mg tablet RxNorm: 134520 1 Tablet(s) PO TID as needed 1 11/01/2013 08/30/2014 Inactive Lipitor 10 mg tablet RxNorm: 266414 1 Tablet(s) PO QHS 08/31/2014 Inactive baclofen 20 mg tablet RxNorm: 167126 1 Tablet(s) PO TID as needed 1 11/01/2013 10/26/2014 Inactive triamterene 75 mg-hydrochlorothiazide 50 mg tablet RxNorm: 3 49254 1 Tablet(s) PO QD 08/31/2014 02/26/2015 Inactive Klor-Con 8 mEq tablet,extended release RxNorm: 607955 1 Tablet( s) PO BID 08/31/2014 11/20/2014 Inactive baclofen 20 mg tablet RxNorm: 938595 1 Tablet(s) PO TID as needed 1 09/30/2013 10/25/2014 Inactive baclofen 20 mg tablet RxNorm: 718706 1 Tablet(s) PO TID as needed 1 09/30/2013 08/31/2014 Inactive omeprazole 40 mg capsule,delayed release RxNorm: 338838 1 Capsu le(s) PO QD 07/21/2014 07/23/2015 Inactive Flonase 50 mcg/actuation nasal spray,suspension RxNorm: 8963 23 1 [place] NASAL BID 07/15/2014 04/09/2017 Inactive hydrocodone 10 mg-acetaminophen 325 mg tablet RxNorm: 500232 1-2 Tablet(s) QID as needed for pain TAKE ONE TO TWO TABLETS BY MOUTH FOUR TIMES A DAY . MUST LAST 30 DAYS 06/30/2014 07/27/2014 Inactive (Response to an electronic controlled substance refill request - RxReferenceNumber: [id number]) baclofen 20 mg tablet RxNorm: 182533 1 Tablet(s) PO TID as needed 1 07/31/2014 Inactive Singulair 10 mg tablet RxNorm: 875419 1 Tablet(s) PO QD TAKE ONE TABLET BY MOUTH EVERY DAY 05/25/2014 11/20/2014 Inactive Bystolic 10 mg tablet RxNorm: 933469 TAKE ONE TABLET BY MOUTH E VERY MORNING 05/25/2014 09/21/2014 Inactive allopurinol 300 mg tablet RxNorm: 244305 1 Tablet(s) PO QD TAKE ONE TABLET BY MOUTH EVERY DAY 05/25/2014 10/21/2014 Inactive baclofen 20 mg tablet RxNorm: 149359 1 Tablet(s) PO TID as needed 0 05/25/2014 06/29/2014 Inactive allopurinol 300 mg tablet RxNorm: 367258 TAKE ONE TABLET BY LOPEZ TH EVERY DAY 05/25/2014 09/21/2014 Inactive Singulair 10 mg tablet RxNorm: 791106 1 Tablet(s) PO QD TAKE ONE TABLET BY MOUTH EVERY DAY 05/25/2014 05/24/2014 Inactive Bystolic 10 mg tablet RxNorm: 156397 1 Tablet(s) PO QAM TAKE ONE TABLET BY MOUTH EVERY MORNING 05/25/2014 10/21/2014 Inactive metolazone 2.5 mg tablet RxNorm: 785030 1 Tablet(s) PO QD as ne eded for edema 05/18/2014 04/25/2015 Inactive Lasix 40 mg tablet RxNorm: 978708 1 Tablet(s) PO QAM s hould take potassium supplementation with this medication 05/14/2014 05/17/2014 Inactive hydrocodone 10 mg-acetaminophen 325 mg tablet RxNorm: 336577 1-2 Tablet(s) QID as needed for pain TAKE ONE TO TWO TABLETS BY MOUTH FOUR TIMES A DAY . MUST LAST 30 DAYS 05/07/2014 06/05/2014 Inactive (Response to an electronic controlled substance refill request - RxReferenceNumber: [id number]) alprazolam 0.5 mg tablet RxNorm: 141727 TAKE ONE TABLET BY MOUTH TWICE A DAY , MUST LAST 30 DAYS 05/07/2014 05/22/2016 Inactive (Response to a n electronic controlled substance refill request - RxReferenceNumber: [id number]) diclofenac sodium 75 mg tablet,delayed release RxNorm: 24951 6 1 Tablet(s) PO BID for pain 04/24/2014 07/20/2014 Inactive Celebrex 200 mg capsule RxNorm: 976926 TAKE ONE CAPSULE BY MOUT H EVERY DAY 04/24/2014 07/20/2014 Inactive alprazolam 0.5 mg tablet RxNorm: 967099 TAKE ONE TABLET BY MOUTH TWICE A DAY , MUST LAST 30 DAYS 03/24/2014 04/22/2014 Inactive (Response to a n electronic controlled substance refill request - RxReferenceNumber: [id number]) diclofenac sodium 75 mg tablet,delayed release RxNorm: 88777 6 1 Tablet(s) PO BID for pain 03/24/2014 04/24/2014 Inactive clonidine HCl 0.1 mg tablet RxNorm: 091589 1 Tablet(s) PO TID 03/2409/28/2014 Inactive replaces 0.2mg dose Klor-Con 8 mEq tablet,extended release RxNorm: 080516 1 Tablet( s) PO BID 02/26/2014 08/31/2014 Inactive diclofenac sodium 75 mg tablet,delayed release RxNorm: 79298 6 1 Tablet(s) PO BID for pain 02/25/2014 03/24/2014 Inactive hydrocodone 10 mg-acetaminophen 325 mg tablet RxNorm: 164526 1-2 Tablet(s) QID as needed for pain TAKE ONE TO TWO TABLETS BY MOUTH FOUR TIMES A DAY . MUST LAST 30 DAYS 02/25/2014 03/26/2014 Inactive (Response to an electronic controlled substance refill request - RxReferenceNumber: [id number]) alprazolam 0.5 mg tablet RxNorm: 024860 Tablet(s) PO BI D as needed for anxiety TAKE ONE TABLET BY MOUTH TWICE A DAY , MUST LAST 30 DAYS 02/25/2014 Inactive (Response to an electronic controlled [place] bstance refill request - RxReferenceNumber: [id number]) [AttnRPh: Saving apply/adjudicate RxGRP:SG20 RxBIN:[id number] RxPCN: ID#:[id number]] alprazolam 0.5 mg tablet RxNorm: 584714 Tablet(s) TAKE ONE TABLET BY MOUTH TWICE A DAY , MUST LAST 30 DAYS 01/27/2014 02/24/2014 Inactive (Respo nse to an electronic controlled substance refill request - RxReferenceNumber: [id number]) [AttnRPh: Saving apply/adjudicate RxGRP:SG20 RxBIN:[id number] RxPCN: ID#:[id number]] hydrocodone 10 mg-acetaminophen 325 mg tablet RxNorm: 810505 1-2 Tablet(s) QID as needed for pain TAKE ONE TO TWO TABLETS BY MOUTH FOUR TIMES A DAY . MUST LAST 30 DAYS 01/27/2014 02/24/2014 Inactive (Response to an electronic controlled substance refill request - RxReferenceNumber: [id number]) alprazolam 0.5 mg tablet RxNorm: 439087 TAKE ONE TABLET BY MOUTH TWICE A DAY , MUST LAST 30 DAYS 01/27/2014 01/26/2014 Inactive (Response to a n electronic controlled substance refill request - RxReferenceNumber: [id number]) Premarin 1.25 mg tablet RxNorm: 431183 1-2 Tablet(s) PO QD 01/28/20 14 07/25/2014 Inactive alprazolam 0.5 mg tablet RxNorm: 784625 TAKE ONE TABLET BY MOUTH TWICE A DAY , MUST LAST 30 DAYS 01/27/2014 01/27/2014 Inactive (Response to a n electronic controlled substance refill request - RxReferenceNumber: [id number]) hydrocodone 10 mg-acetaminophen 325 mg tablet RxNorm: 934477 TAKE ONE TO TWO TABLETS BY MOUTH FOUR TIMES A DAY . MUST LAST 30 DAYS 01/27/20142013 Inactive (Response to an electronic controlled [place] bstance refill request - RxReferenceNumber: [id number]) Celebrex 200 mg capsule RxNorm: 179594 1 Capsule(s) PO QD TAKE ONE CAPSULE BY MOUTH EVERY DAY 12/29/2013 04/27/2014 Inactive hydrocodone 10 mg-acetaminophen 325 mg tablet RxNorm: 385536 1-2 Tablet(s) PO QID as needed for severe pain 12/29/2013 01/27/2014 Inactive allopurinol 300 mg tablet RxNorm: 204601 1 Tablet(s) PO QD TAKE ONE TABLET BY MOUTH EVERY DAY 12/29/2013 05/24/2014 Inactive alprazolam 0.5 mg tablet RxNorm: 071452 TAKE ONE TABLET BY MOUTH TWICE A DAY , MUST LAST 30 DAYS 12/29/2013 01/27/2014 Inactive (Response to a n electronic controlled substance refill request - RxReferenceNumber: [id number]) Celebrex 200 mg capsule RxNorm: 235786 1 Capsule(s) PO QD TAKE ONE CAPSULE BY MOUTH EVERY DAY 12/29/2013 12/29/2013 Inactive Bystolic 10 mg tablet RxNorm: 808385 1 Tablet(s) PO QAM TAKE ONE TABLET BY MOUTH EVERY MORNING 12/29/2013 05/24/2014 Inactive Bystolic 10 mg tablet RxNorm: 228280 1 Tablet(s) PO QAM TAKE ONE TABLET BY MOUTH EVERY MORNING 12/29/2013 12/29/2013 Inactive Singulair 10 mg tablet RxNorm: 969771 1 Tablet(s) PO QD TAKE ONE TABLET BY MOUTH EVERY DAY 12/29/2013 05/25/2014 Inactive hydrocodone 10 mg-acetaminophen 325 mg tablet RxNorm: 150730 TAKE ONE TO TWO TABLETS BY MOUTH FOUR TIMES A DAY . MUST LAST 30 DAYS 12/29/20132013 Inactive (Response to an electronic controlled [place] bstance refill request - RxReferenceNumber: [id number]) Trazadone 75mg Tablet RxNorm: 1 Tablet(s) PO QHS as needed 03/23/2014 Inactive Trazadone 75mg Tablet RxNorm: 1 Tablet(s) PO QHS 12/24/20132014 Inactive Soma 350 mg tablet RxNorm: 513795 Tablet(s) PO TAKE ON E TABLET BY MOUTH THREE TIMES A DAY NEEDED FOR MUSCLE SPASMS. THIS MUST LAST 30 DAYS BETWEEN REFILLS. 12/10/2013 12/22/2013 Inactive (Appended: Cont rolled substance eRx refill - RxReferenceNumber: [id number]) diclofenac sodium 75 mg tablet,delayed release RxNorm: 16425 6 1 Tablet(s) PO BID for pain 12/10/2013 02/24/2014 Inactive allopurinol 300 mg tablet RxNorm: 941180 1 Tablet(s) PO QD 11/20/19 14 12/29/2013 Inactive alprazolam 0.5 mg tablet RxNorm: 848676 2 Tablet(s) PO BID 11/13/19 14 12/29/2013 Inactive prn clonidine 0.1 mg tablet RxNorm: 945686 1 Tablet(s) PO TID 11/12/2013 02/09/2014 Inactive replaces 0.2mg dose Klor-Con M20 mEq tablet,extended release RxNorm: 719512 2 Tablet(s) PO BID to use with lasix 11/12/2013 05/10/2014 Inactive Singulair 10 mg tablet RxNorm: 992758 1 Tablet(s) PO QD 11/12/2013 Inactive hydrocodone 10 mg-acetaminophen 325 mg tablet RxNorm: 118448 1-2 Tablet(s) PO QID as needed for severe pain 11/12/2013 12/28/2013 Inactive Bystolic 10 mg tablet RxNorm: 072401 1 Tablet(s) PO QAM 11/12/2013 Inactive Soma 350 mg tablet RxNorm: 444390 Tablet(s) PO TAKE ON E TABLET BY MOUTH THREE TIMES A DAY NEEDED FOR MUSCLE SPASMS. THIS MUST LAST 30 DAYS BETWEEN REFILLS. 10/13/2013 12/10/2013 Inactive (Appended: Cont rolled substance eRx refill - RxReferenceNumber: [id number]) hydrocodone 10 mg-acetaminophen 325 mg tablet RxNorm: 445077 1-2 Tablet(s) PO QID as needed for severe pain 10/03/2013 11/11/2013 Inactive diclofenac sodium 75 mg tablet,delayed release RxNorm: 18282 8 1 Tablet(s) PO BID for pain 09/11/2013 12/10/2013 Inactive alprazolam 0.5 mg tablet RxNorm: 252701 1 Tablet(s) PO BID May refill on 04/26/13 09/01/2013 10/30/2013 Inactive prn hydrocodone 10 mg-acetaminophen 325 mg tablet RxNorm: 633563 1-2 Tablet(s) PO QID as needed for severe pain 09/01/2013 10/02/2013 Inactive triamterene 75 mg-hydrochlorothiazide 50 mg tablet RxNorm: 3 77473 1 Tablet(s) PO QD 08/04/2013 08/31/2014 Inactive cyclobenzaprine 10 mg tablet RxNorm: 812528 1 Tablet(s) PO TID prn spasm 08/04/2013 08/13/2013 Inactive clonidine 0.1 mg tablet RxNorm: 262517 1 Tablet(s) PO TID 08/04/2013 11/11/2013 Inactive replaces 0.2mg dose cyclobenzaprine 10 mg tablet RxNorm: 632603 1 Tablet(s) PO TID prn spasm 07/23/2013 08/01/2013 Inactive hydrocodone 10 mg-acetaminophen 325 mg tablet RxNorm: 864420 2 1-2 Tablet(s) PO QID as needed for severe pain 06/09/2013 08/07/2013 Inactive Singulair 10 mg tablet RxNorm: 821664 1 Tablet(s) PO QD 05/29/2013 Inactive Klor-Con 8 mEq tablet,extended release RxNorm: 478316 1 Tablet( s) PO BID 05/29/2013 02/26/2014 Inactive allopurinol 300 mg tablet RxNorm: 125426 1 Tablet(s) PO QD 05/29/20 13 11/19/2013 Inactive Bystolic 10 mg tablet RxNorm: 981587 1 Tablet(s) PO QAM take one daily in the morning. 05/29/2013 11/11/2013 Inactive scopolamine 1.5 mg 72 hr Transderm Patch RxNorm: 508845 Application TD Q72H for motion sickness 05/26/2013 07/22/2013 Inactive Soma 350 mg tablet RxNorm: 047779 1 Tablet(s) PO TID as needed for spasm 05/19/2013 10/13/2013 Inactive diclofenac sodium 75 mg tablet,delayed release RxNorm: 88071 8 1 Tablet(s) PO BID for pain 05/14/2013 07/22/2013 Inactive allopurinol 300 mg tablet RxNorm: 734577 1 Tablet(s) PO QD 04/25/20 13 05/28/2013 Inactive alprazolam 0.5 mg tablet RxNorm: 280406 1 Tablet(s) PO BID May refill on 04/26/13 04/25/2013 06/23/2013 Inactive prn Celebrex 200 mg capsule RxNorm: 774290 1 Capsule(s) PO QD 04/16/2013 12/29/2013 Inactive alprazolam 0.5 mg tablet RxNorm: 385455 1 Tablet(s) PO BID May refill on 04/26/13 04/16/2013 04/24/2013 Inactive prn Soma 350 mg tablet RxNorm: 502267 1 Tablet(s) PO TID as needed for spasm 04/16/2013 No Stop Date Active Lasix 40 mg tablet RxNorm: 109359 1 Tablet(s) PO QAM s hould take potassium supplementation with this medication 04/16/2013 06/14/2013 Inactive clonidine 0.1 mg tablet RxNorm: 420858 1 Tablet(s) PO TID 04/16/2013 08/03/2013 Inactive replaces 0.2mg dose prednisone 20 mg tablet RxNorm: 186015 1 Tablet(s) PO BID 04/16/2013 04/20/2013 Inactive diclofenac sodium 75 mg tablet,delayed release RxNorm: 68732 8 1 Tablet(s) PO BID for pain 04/14/2013 05/13/2013 Inactive hydrocodone 10 mg-acetaminophen 325 mg tablet RxNorm: 509796 2 1-2 Tablet(s) PO QID as needed for severe pain 04/14/2013 No Stop Date Active Lasix 40 mg tablet RxNorm: 724090 1 Tablet(s) PO QAM s hould take potassium supplementation with this medication 03/31/2013 04/15/2013 Inactive Celebrex 200 mg capsule RxNorm: 119618 1 Capsule(s) PO QD 03/31/2013 04/15/2013 Inactive alprazolam 0.5 mg tablet RxNorm: 416194 1 Tablet(s) PO BID 03/28/20 13 04/15/2013 Inactive prn hydrocodone 10 mg-acetaminophen 325 mg tablet RxNorm: 906634 2 1-2 Tablet(s) PO QID as needed for severe pain 03/10/2013 No Stop Date Active metformin ER 500 mg 24 hr tablet,extended release RxNorm: 86 1018 1 Tablet(s) PO QD 03/06/2013 07/22/2013 Inactive clindamycin 300 mg capsule RxNorm: 395232 2 Capsule(s) PO TID 03/0503/14/2013 Inactive Zaroxolyn 2.5 mg tablet RxNorm: 005672 1 Tablet(s) PO QAM 03/05/2013 05/19/2015 Inactive amlodipine 10 mg tablet RxNorm: 416903 1 Tablet(s) PO QD 03/03/2013 0 05/25/2013 Inactive Norvasc 10 mg tablet RxNorm: 310323 1 Tablet(s) PO QD 02/28/201307/11 Inactive Celebrex 200 mg capsule RxNorm: 444914 1 Capsule(s) PO QD 02/28/2013 03/30/2013 Inactive diclofenac sodium 75 mg tablet,delayed release RxNorm: 63192 8 1 Tablet(s) PO BID for pain 02/14/2013 03/15/2013 Inactive Soma 350 mg tablet RxNorm: 811290 1 Tablet(s) PO TID as needed for spasm 02/14/2013 No Stop Date Active hydrocodone 10 mg-acetaminophen 325 mg tablet RxNorm: 447594 2 1-2 Tablet(s) PO QID as needed for severe pain 02/14/2013 No Stop Date Active Norvasc 10 mg tablet RxNorm: 365371 1 Tablet(s) PO QD 02/10/201302/09 Inactive Celebrex 200 mg capsule RxNorm: 640519 1 Capsule(s) PO QD 01/27/2013 01/26/2013 Inactive Premarin 1.25 mg tablet RxNorm: 097937 1-2 Tablet(s) PO QD 01/28/20 13 06/25/2013 Inactive alprazolam 0.5 mg tablet RxNorm: 459399 1 Tablet(s) PO BID 01/28/20 13 02/25/2013 Inactive prn amlodipine 5 mg tablet RxNorm: 009098 1 Tablet(s) PO QD 01/27/2013 Inactive Celebrex 200 mg capsule RxNorm: 606791 1 Capsule(s) PO QD 01/27/2013 02/27/2013 Inactive gabapentin 600 mg tablet RxNorm: 913807 1 Tablet(s) PO QHS 01/16/20 13 07/22/2013 Inactive Soma 350 mg tablet RxNorm: 398773 1 Tablet(s) PO TID as needed for spasm 01/15/2013 No Stop Date Active hydrocodone 10 mg-acetaminophen 325 mg tablet RxNorm: 873471 2 1-2 Tablet(s) PO QID as needed for severe pain 01/15/2013 No Stop Date Active Soma 350 mg tablet RxNorm: 403743 1 Tablet(s) PO TID as needed for spasm 01/13/2013 No Stop Date Active alprazolam 0.5 mg tablet RxNorm: 124549 1 Tablet(s) PO BID 12/31/19 13 01/26/2013 Inactive prn diclofenac sodium 75 mg tablet,delayed release RxNorm: 44239 8 1 Tablet(s) PO BID for pain 12/09/2012 01/07/2013 Inactive gabapentin 600 mg tablet RxNorm: 554183 1 Tablet(s) PO QHS 12/10/19 13 01/07/2013 Inactive hydrocodone 10 mg-acetaminophen 325 mg tablet RxNorm: 302798 2 1-2 Tablet(s) PO QID as needed for severe pain 12/02/2012 No Stop Date Active Levaquin 750 mg tablet RxNorm: 323301 1 Tablet(s) PO QD 11/21/2012 Inactive Singulair 10 mg tablet RxNorm: 724189 1 Tablet(s) PO QD 11/11/2012 Inactive clonidine 0.2 mg tablet RxNorm: 014078 1 Tablet(s) PO TID 11/11/2012 04/15/2013 Inactive alprazolam 0.5 mg tablet RxNorm: 542109 1 Tablet(s) PO BID 11/12/19 13 12/10/2012 Inactive prn Klor-Con 8 mEq tablet,extended release RxNorm: 286830 1 Tablet( s) PO BID 11/11/2012 03/04/2013 Inactive hydrocodone 10 mg-acetaminophen 325 mg tablet RxNorm: 497695 2 1-2 Tablet(s) PO QID as needed for severe pain 11/06/2012 No Stop Date Active alprazolam 0.5 mg tablet RxNorm: 017664 1 Tablet(s) PO BID 10/15/19 13 11/10/2012 Inactive prn hydrocodone-acetaminophen 10 mg-325 mg tablet RxNorm: 038550 2 1-2 Tablet(s) PO QID as needed for severe pain 10/10/2012 10/09/2012 Inactive allopurinol 300 mg tablet RxNorm: 851704 1 Tablet(s) PO QD 09/20/19 13 12/18/2012 Inactive alprazolam 0.5 mg tablet RxNorm: 679407 1 Tablet(s) PO BID 09/17/19 13 10/14/2012 Inactive prn hydrocodone-acetaminophen 10 mg-325 mg tablet RxNorm: 509402 2 1-2 Tablet(s) PO QID as needed for severe pain 08/22/2012 08/21/2012 Inactive Norvasc 10 mg tablet RxNorm: 909770 1 Tablet(s) PO QD 08/12/201201/10 Inactive Premarin 1.25 mg tablet RxNorm: 666509 1-2 Tablet(s) PO QD 07/30/20 12 12/26/2012 Inactive alprazolam 0.5 mg tablet RxNorm: 340993 1 Tablet(s) PO BID 07/29/20 12 08/27/2012 Inactive prn Klor-Con 8 mEq tablet,extended release RxNorm: 023453 1 Tablet( s) PO BID 07/29/2012 11/10/2012 Inactive hydrocodone-acetaminophen 10 mg-325 mg tablet RxNorm: 048773 2 1-2 Tablet(s) PO QID as needed for severe pain 07/29/2012 No Stop Date Active Premarin 1.25 mg tablet RxNorm: 770309 1-2 Tablet(s) PO QD 07/29/20 12 07/29/2012 Inactive clonidine 0.2 mg tablet RxNorm: 271365 1 Tablet(s) PO TID 07/29/2012 10/28/2012 Inactive ketorolac 10 mg tablet RxNorm: 373520 1 Tablet(s) PO QID prn he adache 07/18/2012 No Stop Date Active hydrocodone-acetaminophen 10 mg-325 mg tablet RxNorm: 173200 2 1-2 Tablet(s) PO QID as needed for severe pain 07/03/2012 No Stop Date Active amlodipine 5 mg tablet RxNorm: 316256 1 Tablet(s) PO QD 07/02/2012 Inactive allopurinol 300 mg tablet RxNorm: 681111 1 Tablet(s) PO QD 07/02/20 12 09/19/2012 Inactive Celebrex 200 mg capsule RxNorm: 724325 1 Capsule(s) PO QD for j oint pain 06/26/2012 10/23/2012 Inactive diclofenac sodium 75 mg tablet,delayed release RxNorm: 67197 8 1 Tablet(s) PO BID for pain 06/19/2012 09/16/2012 Inactive hydrocodone-acetaminophen 10 mg-325 mg tablet RxNorm: 597180 2 1-2 Tablet(s) PO QID as needed for severe pain 06/10/2012 No Stop Date Active alprazolam 0.5 mg tablet RxNorm: 685996 1 Tablet(s) PO BID 06/03/20 12 07/02/2012 Inactive prn ketorolac 10 mg tablet RxNorm: 069172 1 Tablet(s) PO Q8H 05/27/2012 0 01/21/2019 Inactive as needed for headache hydrocodone-acetaminophen 10 mg-325 mg tablet RxNorm: 756802 2 1-2 Tablet(s) PO QID as needed for severe pain 05/15/2012 No Stop Date Active allopurinol 300 mg tablet RxNorm: 945279 1 Tablet(s) PO QD 05/14/20 12 06/12/2012 Inactive allopurinol 300 mg tablet RxNorm: 478750 1 Tablet(s) PO QD 05/14/20 12 05/13/2012 Inactive amlodipine 5 mg tablet RxNorm: 816349 1 Tablet(s) PO QD 05/01/2012 Inactive amlodipine 5 mg Tab RxNorm: 357139 1 Tablet(s) PO QD 05/01/201204/30 Inactive Celebrex 200 mg capsule RxNorm: 686068 1 Capsule(s) PO QD for j oint pain 05/01/2012 06/25/2012 Inactive Singulair 10 mg tablet RxNorm: 948845 1 Tablet(s) PO QD 05/01/2012 Inactive alprazolam 0.5 mg tablet RxNorm: 882853 1 Tablet(s) PO BID 05/01/20 12 05/30/2012 Inactive prn Celebrex 200 mg Cap RxNorm: 279333 1 Capsule(s) PO QD for joint radu n 05/01/2012 04/30/2012 Inactive hydrocodone-acetaminophen 10 mg-325 mg tablet RxNorm: 353664 2 1-2 Tablet(s) PO QID as needed for severe pain 04/19/2012 No Stop Date Active Lasix 40 mg tablet RxNorm: 786829 1 Tablet(s) PO QAM s hould take potassium supplementation with this medication 04/05/2012 06/03/2012 Inactive alprazolam 0.5 mg Tab RxNorm: 778550 1 Tablet(s) PO BID 04/05/2012 Inactive prn hydrocodone-acetaminophen 10 mg-325 mg Tab RxNorm: 5114537 1-2 Tablet(s) PO QID as needed for severe pain 03/25/2012 03/24/2012 Inactive clonidine 0.2 mg Tab RxNorm: 964815 1 Tablet(s) PO TID 03/08/2012 Inactive alprazolam 0.5 mg Tab RxNorm: 568054 1 Tablet(s) PO BID 03/08/2012 Inactive prn Soma 350 mg tablet RxNorm: 238111 1 Tablet(s) PO TID for spasm 02/0903/18/2012 Inactive clonidine 0.2 mg tablet RxNorm: 386297 1 Tablet(s) PO TID 03/08/2012 07/28/2012 Inactive Celebrex 200 mg Cap RxNorm: 449162 1 Capsule(s) PO QD for joint radu n 03/01/2012 04/29/2012 Inactive amlodipine 5 mg Tab RxNorm: 352158 1 Tablet(s) PO QD 02/26/201202/24 Inactive amlodipine 5 mg Tab RxNorm: 803444 1 Tablet(s) PO QD 02/26/201204/25 Inactive Bactroban 2 % Ointment RxNorm: 963918 Application TOP QID to sores 02/23/2012 No Stop Date Active amlodipine 2.5 mg tablet RxNorm: 203656 1 Tablet(s) PO QHS 02/20/2002/25/2012 Inactive doxycycline hyclate 100 mg Cap RxNorm: 1327261 1 Capsule(s) PO BID 02/20/2012 02/29/2012 Inactive hydrocodone-acetaminophen 10 mg-325 mg Tab RxNorm: 3693026 1-2 T ablet(s) PO QID 02/08/2012 No Stop Date Active alprazolam 0.5 mg Tab RxNorm: 717923 1 Tablet(s) PO BID 02/08/2012 Inactive prn Singulair 10 mg Tab RxNorm: 466294 1 Tablet(s) PO QD 02/08/201204/30 Inactive Soma 350 mg Tab RxNorm: 168357 1 Tablet(s) PO TID for spasm 012 03/07/2012 Inactive Soma 350 mg Tab RxNorm: 580057 1 Tablet(s) PO TID for spasm 012 02/05/2012 Inactive diclofenac sodium 75 mg tablet,delayed release RxNorm: 89924 8 1 Tablet(s) PO BID for pain 02/01/2012 03/18/2012 Inactive Celebrex 200 mg Cap RxNorm: 438282 1 Capsule(s) PO QD for joint radu n 01/30/2012 02/28/2012 Inactive Lasix 40 mg Tab RxNorm: 628505 1 Tablet(s) PO QAM 01/24/2012 03/18/20 12 Inactive potassium chloride ER 20 mEq tablet,extended release(part/cr yst) RxNorm: 446442 2 Tablet(s) PO BID 01/24/2012 02/22/2012 Inactive alprazolam 0.5 mg Tab RxNorm: 441371 1 Tablet(s) PO BID 01/11/2012 Inactive prn hydrocodone-acetaminophen 10 mg-325 mg Tab RxNorm: 6132140 1-2 T ablet(s) PO QID 01/11/2012 No Stop Date Active Ambien 10 mg Tab RxNorm: 877434 1 Tablet(s) PO QHS 01/11/2012 012 Inactive Klor-Con 8 mEq Tab RxNorm: 406537 1 Tablet(s) PO BID 01/11/201201/22 Inactive diclofenac sodium 75 mg Tab, Delayed Release RxNorm: 489954 1 Tablet(s) PO BID for pain 01/10/2012 01/31/2012 Inactive Ambien 10 mg Tab RxNorm: 373221 1 Tablet(s) PO QHS 12/11/2011 012 Inactive alprazolam 0.5 mg Tab RxNorm: 479026 1 Tablet(s) PO BID 12/11/2011 Inactive prn hydrocodone 10 mg-acetaminophen 325 mg tablet RxNorm: 034147 1-2 Tablet(s) PO TID 11/28/2011 No Stop Date Active as needed for pa in - Previous quantity #240, will start dosing for #180 in April 2011 per Doctor Td. Ambien 10 mg Tab RxNorm: 902081 1 Tablet(s) PO QHS 11/09/2011 012 Inactive alprazolam 0.5 mg Tab RxNorm: 946377 1 Tablet(s) PO BID 11/09/2011 Inactive prn hydrocodone-acetaminophen 10 mg-325 mg Tab RxNorm: 8225370 1-2 T ablet(s) PO TID 11/06/2011 No Stop Date Active as needed for pain - Previous quantity #240, will start dosing for #180 in April 2011 per Doctor Td. Singulair 10 mg Tab RxNorm: 784983 1 Tablet(s) PO QD 10/13/201110/12 Inactive Singulair 10 mg Tab RxNorm: 046662 1 Tablet(s) PO QD 10/13/201102/06 Inactive hydrocodone-acetaminophen 10 mg-325 mg Tab RxNorm: 4524201 1-2 T ablet(s) PO TID 10/10/2011 10/09/2011 Inactive as needed for pain - Previous quantity #240, will start dosing for #180 in April 2011 per Doctor Td. hydrocodone-acetaminophen 10 mg-325 mg Tab RxNorm: 6265118 1-2 T ablet(s) PO TID 10/09/2011 No Stop Date Active as needed for pain - Previous quantity #240, will start dosing for #180 in April 2011 per Doctor Td. Klor-Con 8 mEq Tab RxNorm: 330362 1 Tablet(s) PO BID 10/02/201101/09 Inactive triamterene 75 mg-hydrochlorothiazide 50 mg tablet RxNorm: 3 11584 1 Tablet(s) PO QD 09/14/2011 03/06/2013 Inactive Ambien 10 mg Tab RxNorm: 012919 1 Tablet(s) PO QHS 09/14/2011 012 Inactive hydrocodone-acetaminophen 10 mg-325 mg Tab RxNorm: 0931286 1-2 T ablet(s) PO TID 09/14/2011 No Stop Date Active as needed for pain - Previous quantity #240, will start dosing for #180 in April 2011 per Doctor Td. alprazolam 0.5 mg Tab RxNorm: 079396 1 Tablet(s) PO BID 09/14/2011 Inactive prn Zithromax 500 mg Tab RxNorm: 174871 1 Tablet(s) PO QD 09/13/201109/10 Inactive prednisone 20 mg Tab RxNorm: 838145 1 Tablet(s) PO BID 08/31/2011 Inactive Ambien 10 mg Tab RxNorm: 129558 1 Tablet(s) PO QHS 08/17/2011 011 Inactive hydrocodone-acetaminophen 10 mg-325 mg Tab RxNorm: 8552906 1-2 T ablet(s) PO TID 08/17/2011 No Stop Date Active as needed for pain - Previous quantity #240, will start dosing for #180 in April 2011 per Doctor Td. clonidine 0.2 mg Tab RxNorm: 177854 1 Tablet(s) PO TID 08/17/201112/2011 Inactive Ambien 10 mg Tab RxNorm: 052677 1 Tablet(s) PO QHS 08/17/2011 019 Inactive alprazolam 0.5 mg Tab RxNorm: 786265 1 Tablet(s) PO BID 08/17/2011 Inactive prn hydrocodone-acetaminophen 10 mg-325 mg Tab RxNorm: 2501335 1-2 T ablet(s) PO TID 08/17/2011 08/16/2011 Inactive as needed for pain - Previous quantity #240, will start dosing for #180 in April 2011 per Doctor Td. Singulair 10 mg Tab RxNorm: 720057 1 Tablet(s) PO QD 08/17/201108/16 Inactive Klor-Con 8 mEq Tab RxNorm: 608579 1 Tablet(s) PO QD 08/17/20112011 Inactive alprazolam 0.5 mg Tab RxNorm: 432346 1 Tablet(s) PO BID 07/20/2011 Inactive prn Ambien 10 mg Tab RxNorm: 012927 1 Tablet(s) PO QHS 07/20/2011 012 Inactive Singulair 10 mg Tab RxNorm: 255192 1 Tablet(s) PO QD 07/20/201107/19 Inactive Premarin 1.25 mg tablet RxNorm: 980762 2 Tablet(s) PO QD 07/20/2011 0 01/21/2019 Inactive Premarin 1.25 mg tablet RxNorm: 935947 1-2 Tablet(s) PO QD 07/20/20 11 12/16/2011 Inactive Premarin 1.25 mg Tab RxNorm: 047667 1-2 Tablet(s) PO QD 07/06/2011 Inactive alprazolam 0.5 mg Tab RxNorm: 930719 1 Tablet(s) PO BID 06/22/2011 Inactive prn alprazolam 0.5 mg Tab RxNorm: 955641 1 Tablet(s) PO BID 06/22/2011 Inactive prn Premarin 1.25 mg Tab RxNorm: 636957 1 Tablet(s) PO QD m ay do 90 day fill if desired 06/22/2011 07/05/2011 Inactive hydrocodone-acetaminophen 10 mg-325 mg Tab RxNorm: 2179371 1-2 T ablet(s) PO TID 06/22/2011 No Stop Date Active as needed for pain - Previous quantity #240, will start dosing for #180 in April 2011 per Doctor Td. clonidine 0.2 mg Tab RxNorm: 799384 1 Tablet(s) PO TID 05/25/201103/2011 Inactive triamterene-hydrochlorothiazide 75 mg-50 mg Tab RxNorm: 3108 18 1 Tablet(s) PO QD 05/25/2011 09/13/2011 Inactive alprazolam 0.5 mg Tab RxNorm: 498138 1 Tablet(s) PO BID 05/25/2011 Inactive prn hydrocodone-acetaminophen 10 mg-325 mg Tab RxNorm: 9257752 1-2 T ablet(s) PO TID 05/25/2011 No Stop Date Active as needed for pain - Previous quantity #240, will start dosing for #180 in April 2011 per Doctor Td. Robaxin-750 750 mg Tab RxNorm: 811207 2 Tablet(s) PO QHS 05/22/2011 1 Inactive prn spasm hydrocodone-acetaminophen 10 mg-325 mg Tab RxNorm: 7095336 1-2 T ablet(s) PO TID 04/26/2011 No Stop Date Active as needed for pain - Previous quantity #240, will start dosing for #180 in April 2011 per Doctor Td. alprazolam 0.5 mg Tab RxNorm: 015550 1 Tablet(s) PO BID 04/25/2011 Inactive prn Klor-Con 8 mEq Tab RxNorm: 911102 1 Tablet(s) PO QD 03/30/20112010 Inactive Klor-Con 8 mEq Tab RxNorm: 442983 1 Tablet(s) PO QD 03/29/20112010 Inactive hydrocodone-acetaminophen 10 mg-325 mg Tab RxNorm: 7682187 1-2 T ablet(s) PO TID 03/20/2011 04/25/2011 Inactive as needed for pain - Previous quantity #240, will start dosing for #180 in April 2011 per Doctor Td. alprazolam 0.5 mg Tab RxNorm: 986153 1 Tablet(s) PO BID prn 011 03/30/2011 Inactive Ambien 10 mg Tab RxNorm: 930070 1 Tablet(s) PO QHS 03/01/2011 011 Inactive cyclobenzaprine 10 mg Tab RxNorm: 667296 1 Tablet(s) PO TID 011 03/18/2012 Inactive cyclobenzaprine 10 mg Tab RxNorm: 059099 1 Tablet(s) PO TID 011 01/08/2011 Inactive cyclobenzaprine 10 mg Tab RxNorm: 692981 1 Tablet(s) PO TID 011 12/20/2010 Inactive terbinafine 250 mg Tab RxNorm: 565405 1 Tablet(s) PO QD 12/12/2010 Inactive triamterene-hydrochlorothiazide 75 mg-50 mg Tab RxNorm: 3108 18 1 Tablet(s) PO QD 12/07/2010 06/04/2011 Inactive Klor-Con 8 8 mEq Tab RxNorm: 425556 1 Tablet(s) PO QD 12/07/201001/08 Inactive Premarin 1.25 mg Tab RxNorm: 790755 2 Tablet(s) PO QD 12/07/201001/08 Inactive clonidine 0.2 mg Tab RxNorm: 321490 1 Tablet(s) PO TID 12/07/2010 Inactive hydrocodone-acetaminophen 7.5 mg-650 mg Tab RxNorm: 989768 1 Ta blet(s) PO Q4H 12/05/2010 01/21/2019 Inactive hydrocodone-acetaminophen 7.5 mg-650 mg Tab RxNorm: 695344 1 Ta blet(s) PO Q4H 10/26/2010 11/14/2010 Inactive hydrocodone-acetaminophen 7.5 mg-650 mg Tab RxNorm: 834330 1 Ta blet(s) PO Q4H 10/13/2010 10/25/2010 Inactive hydrocodone-acetaminophen 7.5 mg-650 mg Tab RxNorm: 419948 1 Ta blet(s) PO Q4H 09/15/2010 09/12/2010 Inactive alprazolam 0.5 mg Tab RxNorm: 612113 1 Tablet(s) PO BID prn 011 09/12/2010 Inactive terbinafine 250 mg Tab RxNorm: 210793 1 Tablet(s) PO QD 09/05/2010 Inactive hydrocodone-acetaminophen 7.5 mg-650 mg Tab RxNorm: 914480 1 Ta blet(s) PO Q4H 08/29/2010 09/17/2010 Inactive alprazolam 0.5 mg Tab RxNorm: 474876 1 Tablet(s) PO BID prn 010 09/27/2010 Inactive alprazolam 0.5 mg Tab RxNorm: 305188 1 Tablet(s) PO BID prn 010 09/06/2010 Inactive Klor-Con 8 mEq Tab RxNorm: 425589 1 Tablet(s) PO QD 08/08/20102010 Inactive hydrocodone-acetaminophen 7.5 mg-650 mg Tab RxNorm: 049018 1 Ta blet(s) PO Q4H 08/08/2010 08/27/2010 Inactive Ambien 10 mg Tab RxNorm: 653965 1 Tablet(s) PO QHS 08/08/2010 Inactive clonidine 0.2 mg Tab RxNorm: 765990 1 Tablet(s) PO TID 08/08/2010 Inactive Premarin 1.25 mg Tab RxNorm: 052204 2 Tablet(s) PO QD 08/08/201009/12 Inactive Ambien 10 mg Tab RxNorm: 315477 1 Tablet(s) PO QHS 07/18/2010 Inactive alprazolam 0.5 mg Tab RxNorm: 690663 1 Tablet(s) PO BID prn 08/07/2010 Inactive hydrocodone-acetaminophen 7.5 mg-650 mg Tab RxNorm: 936170 1 Ta blet(s) PO Q4H 07/12/2010 07/31/2010 Inactive clonidine 0.2 mg Tab RxNorm: 819502 1 Tablet(s) PO TID 06/20/2010 Inactive terbinafine 250 mg Tab RxNorm: 960444 1 Tablet(s) PO QD 05/24/2010 Inactive Clonidine 0.2 mg Tab RxNorm: 377374 1 Tablet(s) PO TID 05/24/201006/2010 Inactive Ambien 10 mg Tab RxNorm: 793210 1 Tablet(s) PO QHS 05/24/2010 Inactive alprazolam 0.5 mg Tab RxNorm: 266898 1 Tablet(s) PO BID 05/24/2010 Inactive Klor-Con 8 mEq Tab RxNorm: 869335 1 Tablet(s) PO QD 05/24/20102009 Inactive alprazolam 0.5 mg Tab RxNorm: 862161 2 Tablet(s) PO QD prn 05/24/20 10 07/17/2010 Inactive triamterene-hydrochlorothiazide 75 mg-50 mg Tab RxNorm: 3108 18 1 Tablet(s) PO QD 05/24/2010 11/19/2010 Inactive Ambien 10 mg Tab RxNorm: 003999 1 Tablet(s) PO QHS 05/23/2010 010 Inactive Alprazolam 0.5 mg Tab RxNorm: 578531 2 Tablet(s) PO QD prn 05/23/2005/23/2010 Inactive Premarin 1.25 mg Tab RxNorm: 440466 2 Tablet(s) PO QD 05/19/201007/12 Inactive Hydrocodone-Acetaminophen 7.5 mg-650 mg Tab RxNorm: 528175 1 Ta blet(s) PO Q4H 05/19/2010 03/20/2011 Inactive Prednisone 20 mg Tab RxNorm: 866604 1 Tablet(s) PO BID 05/17/2010 Inactive Prednisone 20 mg Tab RxNorm: 124151 1 Tablet(s) PO BID 05/06/201001/2010 Inactive Premarin 1.25 mg Tab RxNorm: 694840 Tablet(s) PO 2 M-W-F, and 1 Yh-Gp-Mhu-Sun 05/05/2010 08/02/2010 Inactive Premarin 1.25 mg Tab RxNorm: 445025 Tablet(s) PO 2 M-W-F, and 1 Jk-Bh-Bwz-Sun 05/04/2010 05/04/2010 Inactive Premarin 1.25 mg Tab RxNorm: 262696 Tablet(s) PO 2 M-W-F, and 1 Yo-Jy-Pix-Sun 05/04/2010 05/03/2010 Inactive Prednisone 20 mg Tab RxNorm: 354975 1 Tablet(s) PO BID 04/27/2010 Inactive Alprazolam 0.5 mg Tab RxNorm: 392510 2 Tablet(s) PO QD prn 04/26/2005/22/2010 Inactive Clindamycin 300 mg Cap RxNorm: 089020 2 Capsule(s) PO TID 04/05/2010 04/18/2010 Inactive Terbinafine 250 mg Tab RxNorm: 269083 1 Tablet(s) PO QD 04/04/2010 Inactive Hydrocodone-Acetaminophen 7.5 mg-650 mg Tab RxNorm: 158134 1 Ta blet(s) PO Q4H 03/30/2010 04/18/2010 Inactive Avelox 400 mg Tab RxNorm: 718624 1 Tablet(s) PO QD 03/09/2010 010 Inactive Hydrocodone-Acetaminophen 7.5 mg-650 mg Tab RxNorm: 153743 1 Ta blet(s) PO Q4H 03/08/2010 03/27/2010 Inactive Alprazolam 0.5 mg Tab RxNorm: 577620 2 Tablet(s) PO QD prn 03/08/20 10 04/25/2010 Inactive Klor-Con 8 mEq Tab RxNorm: 031314 1 Tablet(s) PO QD when takes lasi x 03/07/2010 09/29/2019 Inactive Premarin 1.25 mg Tab RxNorm: 645099 1 Tablet(s) PO QD 03/03/201003/11 Inactive Alprazolam 0.5 mg Tab RxNorm: 319300 1 Tablet(s) PO BID PRN 010 No Stop Date Active triamterene-hydrochlorothiazide 75 mg-50 mg Tab RxNorm: 3108 18 1 Tablet(s) PO QD 02/09/2010 02/03/2011 Inactive Hydrocodone-Acetaminophen 10 mg-750 mg Tab RxNorm: 814995 1 Tablet(s) PO Q4H PRN 02/09/2010 03/20/2011 Inactive Clonidine 0.2 mg Tab RxNorm: 741801 1 Tablet(s) PO TID 01/13/201009/2009 Inactive Alprazolam 0.5 mg Tab RxNorm: 047258 1 Tablet(s) PO BID PRN 010 01/12/2010 Inactive Hydrocodone-Acetaminophen 10 mg-750 mg Tab RxNorm: 218069 1 Tablet(s) PO Q4H PRN 01/13/2010 01/12/2010 Inactive ANGELIQ 1 mg-0.5 mg Tab RxNorm: 2688693 1 Tablet(s) PO QD 12/27/2009 01/23/2010 Inactive Lasix 40 mg Tab RxNorm: 533838 1 Tablet(s) PO QAM 12/14/2009 06/11/20 10 Inactive Vitamin B12 1000mcg Tablet RxNorm: 1 Tablet(s) PO QD No Start Date Active cyclobenzaprine 10 mg tablet RxNorm: 393023 1 Tablet(s) PO TID as needed DO NOT USE WITH BACLOFEN No Start Date Active Vitamin D 5,000 unit Tab RxNorm: 1 Tablet(s) PO QD No Start Date Active vitamin E (dl, acetate) 400 unit Cap RxNorm: 869088 1 Capsule(s ) PO QD No Start Date Active Benadryl 25 mg Cap RxNorm: 3019480 Capsule(s) PO PRN No Start Date Inactive amitriptyline 100 mg tablet RxNorm: 593549 1 Tablet(s) PO QHS No St art Date 11/27/2016 Inactive Zithromax Z-Dustin 250 mg tablet RxNorm: 770943 Tablet(s) PO as di rected No Start Date 07/22/2013 Inactive Klor-Con 8 mEq tablet,extended release RxNorm: 217275 1 Tablet( s) PO BID No Start Date 07/28/2012 Inactive scopolamine 1.5 mg 72 hr Transderm Patch RxNorm: 449175 Application TD Q72H for motion sickness No Start Date 05/25/2013 Inactive Klonopin 1 mg tablet RxNorm: 656084 1-2 Tablet(s) PO QHS as nee ded for sleep No Start Date 06/20/2015 Inactive Klor-Con M20 mEq tablet,extended release RxNorm: 800906 2 Tablet(s) PO BID to use with lasix No Start Date 11/11/2013 Inactive Bystolic 5 mg tablet RxNorm: 017260 1 Tablet(s) PO QD No Start Date 1 Inactive Bystolic 10 mg tablet RxNorm: 190428 1 Tablet(s) PO BID No Start Da te 07/06/2015 Inactive Premarin 1.25 mg Tab RxNorm: 956153 Tablet(s) PO 2 -W-, and 1 Ch-Ex-Uuv-Sun No Start Date 05/03/2010 Inactive baclofen 20 mg tablet RxNorm: 757028 1 Tablet(s) PO TID as needed for muscle spasm No Start Date 07/22/2015 Inactive hydrocodone-acetaminophen 7.5 mg-650 mg Tab RxNorm: 718642 1 Tablet(s) PO Q4H as needed for pain No Start Date 03/20/2011 Inactive albuterol sulfate 1.25 mg/3 mL Neb Solution RxNorm: 994774 1 Unit Dose INH Q4H 2boxes No Start Date 09/06/2015 Inactive Butrans 20 mcg/hour Transderm Patch RxNorm: 910678 1 TD WEEKLY apply to skin weekly after removing previous. No Start Date 07/22/2013 Inactive Medrol (Dustin) 4 mg tablets in a dose pack RxNorm: 102265 Tablet(s) PO As Directed No Start Date 07/30/2016 Inactive hydrocodone-acetaminophen 10 mg-325 mg Tab RxNorm: 5469046 1-2 Tablet(s) PO TID as needed for pain No Start Date 03/19/2011 Inactive Klonopin 1 mg tablet RxNorm: 740065 1 Tablet(s) PO QHS No Start Date 02/28/2016 Inactive honey topical RxNorm: topical No Start Date 06/16/2018 Inactive Clonidine 0.2 mg Tab RxNorm: 228241 1 Tablet(s) PO TID No Start Date 01/12/2010 Inactive ketorolac 10 mg tablet RxNorm: 463780 1 Tablet(s) PO Q8H No Start D ate 03/18/2012 Inactive as needed for headache Singulair 10 mg Tab RxNorm: 422943 1 Tablet(s) PO QD No Start Date Inactive Premarin 1.25 mg Tab RxNorm: 998683 1 Tablet(s) PO QD No Start Date 1 Inactive Flonase 50 mcg/Actuation Nasal [place] RxNorm: 8308419 1 [place] CECELIA AL BID No Start Date 03/18/2012 Inactive Terbinafine 250 mg Tab RxNorm: 665583 1 Tablet(s) PO QD No Start Da te 04/03/2010 Inactive Fexofenadine 180 mg Tab RxNorm: 7242880 1 Tablet(s) PO QD No Start Date 09/06/2015 Inactive baclofen 20 mg tablet RxNorm: 066175 1 Tablet(s) PO TID as needed N o Start Date 05/25/2014 Inactive Diovan 160 mg Tab RxNorm: 957958 1 Tablet(s) PO QD No Start Date 09/12 Inactive mupirocin 2 % topical ointment RxNorm: 243873 1 Application TOP QID No Start Date 04/25/2016 Inactive ZOFRAN ODT 4 mg Tab, Rapid Dissolve RxNorm: 226867 1 Tablet(s) PO Q4H No Start Date 03/18/2012 Inactive as needed for nausea and vomiting Alprazolam 0.5 mg Tab RxNorm: 318521 1 Tablet(s) PO BID PRN No Star t Date 01/12/2010 Inactive cyclobenzaprine 10 mg tablet RxNorm: 823682 1 Tablet(s) PO TID as needed for muscle spasm No Start Date 10/08/2017 Inactive Albuterol 0.083% Aerosol Solution RxNorm: 1 Appl ication INH Q4H Use one ampule every 4 hrs with nebulizer as needed for shortness of breath. No Start Date 10/09/2010 Inactive lorazepam 1 mg tablet RxNorm: 699142 1 1/2 Tablet(s) PO QHS No Star t Date 02/02/2016 Inactive Melatonin 3 mg Tab RxNorm: 577269 Tablet(s) PO PRN No Start Date 07/11 Inactive Medrol (Dustin) 4 mg Tabs in a Dose Pack RxNorm: 250376 Tablet(s) PO N o Start Date 11/28/2010 Inactive lorazepam 1 mg tablet RxNorm: 091312 1 Tablet(s) PO QHS as need ed for sleep No Start Date 01/30/2016 Inactive hydrocodone-acetaminophen 10 mg-325 mg Tab RxNorm: 3511029 1-2 Tablet(s) PO QID as needed for severe pain No Start Date 03/24/2012 Inactive celecoxib 200 mg capsule RxNorm: 271280 1 Capsule(s) PO BID No Star t Date 06/26/2019 Inactive amlodipine 5 mg-benazepril 20 mg capsule RxNorm: 682449 1 Capsu le(s) PO QD No Start Date 04/10/2017 Inactive Bystolic 20 mg tablet RxNorm: 577528 1/2 Tablet(s) PO QAM No Start Date 01/23/2016 Inactive Bystolic 20 mg tablet RxNorm: 124861 1 Tablet(s) PO QAM No Start Da te 04/25/2016 Inactive Ambien 10 mg Tab RxNorm: 069205 1 Tablet(s) PO QHS No Start Date 05/11 Inactive Klor-Con 8 mEq Tab RxNorm: 188390 1 Tablet(s) PO QD when takes lasix No Start Date 03/06/2010 Inactive aspirin 81 mg tablet RxNorm: 403814 1 Tablet(s) PO QD No Start Date 0 01/29/2018 Inactive hydrocodone-acetaminophen 10 mg-325 mg Tab RxNorm: 8875590 1-2 T ablet(s) PO QID No Start Date 01/10/2012 Inactive Bystolic 10 mg tablet RxNorm: 563110 1 Tablet(s) PO QAM take one daily in the morning. No Start Date 05/28/2013 Inactive nystatin 100,000 unit/mL Oral Susp RxNorm: 923232 5 Milliliter( s) PO QID No Start Date 03/18/2012 Inactive swish and spit scopolamine 1.5 mg 72 hr Transderm Patch RxNorm: 643199 1 Unit Dose TD Q72H for motion sickness No Start Date 12/23/2013 Inactive Hydrocodone-Acetaminophen 10 mg-750 mg Tab RxNorm: 561141 1 Tablet(s) PO Q4H PRN No Start Date 01/12/2010 Inactive Soma 350 mg tablet RxNorm: 327384 1 Tablet(s) PO TID as needed for spasm No Start Date 01/12/2013 Inactive baclofen 10 mg tablet RxNorm: 276788 1 Tablet(s) PO TID as needed for muscle spasm No Start Date 09/18/2019 Inactive Soma 350 mg Tab RxNorm: 993512 1 Tablet(s) PO TID for spasm No Star t Date 01/31/2012 Inactive Co Q-10 400 mg capsule RxNorm: 646695 1 Capsule(s) PO QD No Start D ate 01/21/2019 Inactive nystatin 100,000 unit/gram topical cream RxNorm: 721772 Applica tion TOP BID No Start Date 03/22/2015 Inactive Exforge 5 mg-160 mg Tab RxNorm: 476905 1 Tablet(s) PO QD No Start D ate 10/09/2010 Inactive Hydrocodone-Acetaminophen 7.5 mg-650 mg Tab RxNorm: 965697 1 Ta blet(s) PO Q4H No Start Date 03/07/2010 Inactive Robaxin-750 750 mg Tab RxNorm: 331950 1-2 Tablet(s) PO TID prn spasm No Start Date 05/21/2011 Inactive amlodipine 5 mg tablet RxNorm: 642347 1 Tablet(s) PO QHS No Start D ate 09/29/2015 Inactive oxycodone-acetaminophen 10 mg-325 mg tablet RxNorm: 4357720 1-2 Tablet(s) PO Q6H No Start Date 06/16/2018 Inactive Triamterene-Hydrochlorothiazide 75 mg-50 mg Tab RxNorm: 3108 18 1 Tablet(s) PO QD No Start Date 02/08/2010 Inactive Alprazolam 0.5 mg Tab RxNorm: 226094 2 Tablet(s) PO QD prn No Start Date 03/07/2010 Inactive Bystolic 20 mg tablet RxNorm: 610185 1 Tablet(s) PO QAM No Start Da te 08/17/2015 Inactive ketorolac 10 mg tablet RxNorm: 634556 1 Tablet(s) PO QID prn he adache No Start Date 07/17/2012 Inactive acyclovir 800 mg Tab RxNorm: 749767 1 Tablet(s) PO BID No Start Date 03/18/2012 Inactive duloxetine 60 mg capsule,delayed release RxNorm: 080011 1 Capsu le(s) PO QD No Start Date 09/29/2015 Inactive Norvasc 5 mg tablet RxNorm: 691111 1 Tablet(s) PO QHS No Start Date 1 10/18/2014 Inactive promethazine 25 mg tablet RxNorm: 936621 1 Tablet(s) PO Q8H use sparingly No Start Date 07/22/2013 Inactive alprazolam 0.5 mg tablet RxNorm: 553532 3 Tablet(s) PO QHS No Start Date 06/06/2015 Inactive Lunesta 3 mg tablet RxNorm: 875234 1 Tablet(s) PO QHS No Start Date 0 09/20/2017 Inactive hydrocodone-acetaminophen 10 mg-325 mg Tab RxNorm: 3196998 1-2 Tablet(s) PO TID as needed for pain No Start Date 12/10/2011 Inactive Coricidin HBP Cough & Cold 4 mg-30 mg Tab RxNorm: 8109201 Tablet (s) PO PRN No Start Date 10/09/2010 Inactive Bactroban 2 % Ointment RxNorm: 336252 Application TOP QID to so res No Start Date 02/22/2012 Inactive Flonase 50 mcg/actuation Nasal [place] RxNorm: 886364 [address] [place] QHS No Start Date 03/03/2014 Inactive Medication Administered No Medication Administered data Immunizations Vaccine Codes Date Status Tetanus, Diptheria, Pertussis CVX: 115 02/27/2014 Results Observation Observation Code Item Item Code Result Date S ervice Location COMPREHENSIVE METABOLIC 19064 AST 15 U/L 2019 Unknown [facility] 27230 ALT 13 U/L 2019 Unknown [facility] 66134 BUN 12 mg/dL 2019 Unknown [facility] 27333 ALBUMIN 3.9 g/dL 2019 Unknown [facility] 71181 CHLORIDE 97 mmol/L 2019 Unknown COMPREHENSIVE METABOLIC 97961 Bili Total 0.4 mg/dL 09/29 Unknown COMPREHENSIVE METABOLIC 09915 ALK PHOS 130 U/L 2019 Unknown [facility]PRE[facility] MET[facility]OL[facility] 31003 SODIUM 136 mmol/L 09/29 Unknown COMPREHENSIVE METABOLIC 98279 CREATININE 0.92 mg/dL 09/11 Unknown [facility] 31754 CALCIUM 9.1 mg/dL 2019 Unknown [facility] 60895 POTASSIUM 4.4 mmol/L 09/29 Unknown [facility]PREH[facility] METABOLIC 40707 Total Protein 6.2 g/dL Unknown [facility] MET[facility]OLIC 59360 Glucose 391 mg/dL 2019 Unknown COMPREH[facility] METABOLIC 60439 Bicarbonate 30 mmol/L 09/11 Unknown COMPREHENSIVE METABOLIC 84145 AGAP 9 mmol/L 2019 Unknown MEAN GLUC 7132193 Calc Mean Gluc 332 mg/dL 09/29/2019 Unkn own COMPLETE BLOOD COUNT [id number] WBC 7.0 10e9/L 09/29/19 Unknown COMPLETE BLOOD COUNT 8124988 RBC 4.69 10e12/L 2019 Unknown COMPLETE BLOOD COUNT 6718805 HEMOGLOBIN 14.6 g/dL 09/29/19 Unknown COMPLETE BLOOD COUNT 5968030 HEMATOCRIT 45.2 % 09/29/19 Unknown COMPLETE BLOOD COUNT 9457634 MCV 96.4 fL 0 Unknown COMPLETE BLOOD COUNT 3674308 MCH 31.1 pg 0 Unknown COMPLETE BLOOD COUNT 7849541 MCHC 32.3 g/dL 0 Unknown COMPLETE BLOOD COUNT 9064465 PLATELET COUNT 209 10e9/L Unknown COMPLETE BLOOD COUNT 9596634 Mean Plt Volume 9.8 fL Unknown COMPLETE BLOOD COUNT 4342221 Neut Auto 48.1 % 0 Unknown COMPLETE BLOOD COUNT 9572096 Lymph Auto 36.5 % 09/29/19 20 Unknown COMPLETE BLOOD COUNT 9887134 [place] Auto 8.6 % 0 Unknown COMPLETE BLOOD COUNT 1354076 RDW 13.4 % 0 Unknown COMPLETE BLOOD COUNT 7838609 Eos Auto 6.5 % 0 Unknown COMPLETE BLOOD COUNT 7573314 Baso Auto 0.3 % 0 Unknown COMPLETE BLOOD COUNT 9392543 Neutrophil Abs 3.37 10e9/L Unknown COMPLETE BLOOD COUNT 2146878 Lymphocyte Abs 2.56 10e9/L Unknown COMPLETE BLOOD COUNT 0697090 Monocyte Abs 0.60 10e9/L 09/11 Unknown COMPLETE BLOOD COUNT 9082945 Eosinophil Abs 0.46 10e9/L Unknown COMPLETE BLOOD COUNT 1079242 RDW-SD 45.9 fL 0 Unknown COMPLETE BLOOD COUNT [id number] Basophil Abs 0.02 10e9/L 09/11 Unknown LIP[facility] GROUP 64721 Cholesterol 248 mg/dL 09/29/2019 Unkno wn LIPID GROUP 07555 Triglyceride 898 mg/dL 09/29/2019 Unkn own LIPID GROUP 95954 HDL CHOLESTEROL 41 mg/dL 09/29/2019 U nknown LIP[facility] GROUP 27195 Chol/HDL Ratio 6.05 ratio 09/29/2019 U nknown LIP[facility] GROUP 93266 NON-HDL Chol 207 mg/dL 09/29/2019 Unkn own LIP[facility] GROUP 24516 LDL Cholesterol N/A Trig >400 020 Unknown GLYCOSYLATED HEMOGLOBIN TEST 79876 Hgb A1c 73732-4 13.2 % 0 09/29/2019 Unknown FREE T4 61061 T4 Free 0.75 ng/dL 09/29/2019 Unknown GFR CALC 1660389 GFR Non Afr Amr >60 mL/min 09/29/2019 Un known GFR CALC 4155556 GFR Afr Amr >60 mL/min 09/29/2019 Unknow n THYROID STIMULATING HORMONE 01378 TSH 4.245 uIU/mL 09/29/2019 Unknown COMPLETE BLOOD COUNT 0407408 WBC 10.7 10e9/L 018 Unknown COMPLETE BLOOD COUNT [id number] RBC 4.59 10e12/L 2017 Unknown COMPLETE BLOOD COUNT 7386335 HEMOGLOBIN 14.8 g/dL 12/11/19 18 Unknown COMPLETE BLOOD COUNT 7024660 HEMATOCRIT 44.9 % 12/11/19 18 Unknown COMPLETE BLOOD COUNT 1291683 MCV 97.8 fL 8 Unknown COMPLETE BLOOD COUNT 3443071 MCH 32.2 pg 8 Unknown COMPLETE BLOOD COUNT 6150396 MCHC 33.0 g/dL 8 Unknown COMPLETE BLOOD COUNT 5542410 PLATELET COUNT 261 10e9/L 10/2017 Unknown COMPLETE BLOOD COUNT 9270757 Mean Plt Volume 9.5 fL 10/2017 Unknown COMPLETE BLOOD COUNT 0524384 Neut Auto 59.9 % 8 Unknown COMPLETE BLOOD COUNT 8495634 Lymph Auto 27.4 % 12/11/19 18 Unknown COMPLETE BLOOD COUNT 4560858 [place] Auto 8.2 % 8 Unknown COMPLETE BLOOD COUNT 0230593 RDW 13.3 % 8 Unknown COMPLETE BLOOD COUNT 9996331 Eos Auto 4.1 % 8 Unknown COMPLETE BLOOD COUNT 5829159 Baso Auto 0.4 % 8 Unknown COMPLETE BLOOD COUNT 5357486 Neutrophil Abs 6.41 10e9/L Unknown COMPLETE BLOOD COUNT 7837232 Lymphocyte Abs 2.93 10e9/L Unknown COMPLETE BLOOD COUNT 7263263 Monocyte Abs 0.88 10e9/L 10/2017 Unknown COMPLETE BLOOD COUNT 7302198 Eosinophil Abs 0.44 10e9/L Unknown COMPLETE BLOOD COUNT 5476707 RDW-SD 46.2 fL 8 Unknown COMPLETE BLOOD COUNT 4336294 Basophil Abs 0.04 10e9/L 10/2017 Unknown THYROID STIMULATING HORMONE 74627 TSH 4.015 uIU/mL 12/10/2017 Unknown COMPREHENSIVE METABOLIC 50131 AST 25 U/L 2017 Unknown COMPREHENSIVE METABOLIC 69859 ALT 17 U/L 2017 Unknown COMPREHENSIVE METABOLIC 70956 BUN 19 mg/dL 2017 Unknown COMPREHENSIVE METABOLIC 60030 ALBUMIN 4.0 g/dL 2017 Unknown COMPREHENSIVE METABOLIC 76263 CHLORIDE 91 mmol/L 2017 Unknown COMPREHENSIVE METABOLIC 69417 Bili Total 0.5 mg/dL 12/10 Unknown COMPREHENSIVE METABOLIC 44197 ALK PHOS 75 U/L 2017 Unknown COMPREHENSIVE METABOLIC 15392 SODIUM 136 mmol/L 12/10 Unknown COMPREHENSIVE METABOLIC 84337 CREATININE 1.05 mg/dL 10/2017 Unknown COMPREHENSIVE METABOLIC 78433 CALCIUM 8.9 mg/dL 2017 Unknown COMPREHENSIVE METABOLIC 26911 POTASSIUM 3.4 mmol/L 12/10 Unknown COMPREHENSIVE METABOLIC 21305 Total Protein 6.5 g/dL Unknown COMPREHENSIVE METABOLIC 99259 Glucose 138 mg/dL 2017 Unknown COMPREHENSIVE METABOLIC 81484 Bicarbonate 35 mmol/L 10/2017 Unknown COMPREHENSIVE METABOLIC 69463 AGAP 10 mmol/L 2017 Unknown MEAN GLUC 1592270 Calc Mean Gluc 171 mg/dL 12/10/2017 Unkn own LIPID GROUP 78322 Cholesterol 204 mg/dL 12/10/2017 Unkno wn LIPID GROUP 18334 Triglyceride 411 mg/dL 12/10/2017 Unkn own LIP[facility] GROUP 52608 HDL CHOLESTEROL 50 mg/dL 12/10/2017 U nknown LIPID GROUP 48391 Chol/HDL Ratio 4.08 ratio 12/10/2017 U nknown LIP[facility] GROUP 05109 NON-HDL Chol 154 mg/dL 12/10/2017 Unkn own LIPID GROUP 01683 LDL Cholesterol N/A Trig >400 018 Unknown GLYCOSYLATED HEMOGLOBIN TEST 24578 Hgb A1c 18024-0 7.6 % 0 12/10/2017 Unknown FREE T4 58066 T4 Free 1.40 ng/dL 12/10/2017 Unknown GFR CALC 4164525 GFR Non Afr Amr 55 mL/min 12/10/2017 Unk nown GFR CALC 6209632 GFR Afr Amr >60 mL/min 12/10/2017 Unknow n GFR CALC 2979223 GFR Non Afr Amr 48 mL/min 06/28/2017 Unk nown GFR CALC 5022890 GFR Afr Amr 59 mL/min 06/28/2017 Unknown COMPREHENSIVE METABOLIC 04930 AST 32 U/L 2016 Unknown COMPREHENSIVE METABOLIC 01650 ALT 22 U/L 2016 Unknown COMPREHENSIVE METABOLIC 13821 BUN 23 mg/dL 2016 Unknown COMPREHENSIVE METABOLIC 75619 ALBUMIN 4.7 g/dL 2016 Unknown COMPREHENSIVE METABOLIC 53110 CHLORIDE 89 mmol/L 2016 Unknown COMPREHENSIVE METABOLIC 82631 Bili Total 0.5 mg/dL 06/28 Unknown COMPREHENSIVE METABOLIC 61254 ALK PHOS 90 U/L 2016 Unknown COMPREHENSIVE METABOLIC 22690 SODIUM 135 mmol/L 06/28 Unknown COMPREHENSIVE METABOLIC 74838 CREATININE 1.18 mg/dL 06/10 Unknown COMPREHENSIVE METABOLIC 07833 CALCIUM 9.7 mg/dL 2016 Unknown COMPREHENSIVE METABOLIC 52214 POTASSIUM 3.5 mmol/L 06/28 Unknown COMPREHENSIVE METABOLIC 25159 Total Protein 7.7 g/dL Unknown COMPREHENSIVE METABOLIC 14183 Glucose 129 mg/dL 2016 Unknown COMPREHENSIVE METABOLIC 72514 Bicarbonate 34 mmol/L 06/10 Unknown COMPREHENSIVE METABOLIC 83394 AGAP 12 mmol/L 2016 Unknown [facility] 22274 HDL TEST 64 MG/DL 08/27/2014 Unknown [facility] 07031 TRIG 222 MG/DL 08/27/2014 Unknown [facility] 79258 TEST LDL 209 MG/DL 08/27/2014 Unknown [facility] 29175 CHOL 317 MG/DL 08/27/2014 Unknown [facility] 77210 RCHOL/HDL 4.95 RATIO 08/27/2014 Unknow n LIP[facility] GROUP 47547 NON-HDL CH 253 MG/DL 08/27/2014 Unknow n GFR CALC 4386286 GFR AA >60 ML/MIN 08/27/2014 Unknown GFR CALC 7047593 GFR NON-AA >60 ML/MIN 08/27/2014 Unknown COMPLETE BLOOD COUNT 2040536 WBC 7.0 10e9/L 08/27/20 14 Unknown COMPLETE BLOOD COUNT 1032834 RBC 4.98 10e12/L 2013 Unknown COMPLETE BLOOD COUNT 8157726 HGB 15.6 g/dL 4 Unknown COMPLETE BLOOD COUNT 8082159 HCT DET 46.5 % 4 Unknown COMPLETE BLOOD COUNT 8704547 MCV 93.4 fL 4 Unknown COMPLETE BLOOD COUNT 8705358 MCH 31.3 pg 4 Unknown COMPLETE BLOOD COUNT 7957919 MCHC 33.5 g/dL 4 Unknown COMPLETE BLOOD COUNT 4691206 PLT 309 10e9/L 08/27/20 14 Unknown COMPLETE BLOOD COUNT 9485938 MPV 9.6 fL 4 Unknown COMPLETE BLOOD COUNT 7897330 CADEN % 57.2 % 4 Unknown COMPLETE BLOOD COUNT 2541881 LY % 33.2 % 4 Unknown COMPLETE BLOOD COUNT 9641303 MON % 7.3 % 4 Unknown COMPLETE BLOOD COUNT 0242211 EOS % 2.0 % 4 Unknown COMPLETE BLOOD COUNT 8216817 BASO % 0.3 % 4 Unknown COMPLETE BLOOD COUNT 3254520 RDW 13.7 % 4 Unknown COMPLETE BLOOD COUNT 1049931 ABS CADEN 4.00 10e9/L 014 Unknown COMPLETE BLOOD COUNT 8407916 ABS LYMPH 2.32 10e9/L 014 Unknown COMPLETE BLOOD COUNT 4703267 ABS MONO 0.51 10e9/L 014 Unknown COMPLETE BLOOD COUNT 8308793 ABS EOS 0.14 10e9/L 014 Unknown COMPLETE BLOOD COUNT 7869891 ABS BASO 0.02 10e9/L 014 Unknown COMPLETE BLOOD COUNT 1436570 RDW-SD 45.1 fL 4 Unknown COMPREHENSIVE METABOLIC 69493 AST 13 U/L 2013 Unknown COMPREHENSIVE METABOLIC 56010 ALT 11 IU/L 2013 Unknown COMPREHENSIVE METABOLIC 63987 BUN 23 MG/DL 2013 Unknown COMPREHENSIVE METABOLIC 93624 ALBUMIN 4.4 GM/DL 2013 Unknown COMPREHENSIVE METABOLIC 68099 CHLORIDE 99 MMOL/L 2013 Unknown COMPREHENSIVE METABOLIC 76769 BILI TOT 0.5 MG/DL 2013 Unknown COMPREHENSIVE METABOLIC 27668 ALK PHOS 56 U/L 2013 Unknown COMPREHENSIVE METABOLIC 02841 SODIUM 138 MMOL/L 08/27 Unknown COMPREHENSIVE METABOLIC 32869 CREATININE 0.95 MG/DL 08/10 Unknown COMPREHENSIVE METABOLIC 80678 CALCIUM 9.8 MG/DL 2013 Unknown COMPREHENSIVE METABOLIC 62365 POTASSIUM 3.5 MMOL/L 08/27 Unknown COMPREHENSIVE METABOLIC 47305 PROT TOT 6.8 GM/DL 2013 Unknown COMPREHENSIVE METABOLIC 02208 Glucose 90 MG/DL 2013 Unknown COMPREHENSIVE METABOLIC 01461 BICARB 34 MMOL/L 2013 Unknown COMPREHENSIVE METABOLIC 93404 ANION GAP 5 MEQ/L 2013 Unknown LIPASE 11621 LIPASE 11 IU/L 07/21/2014 Unknown AMYLASE 10449 AMYLASE 39 IU/L 07/21/2014 Unknown HEMOGLOBIN A1C (GLYCOSYLATED) 6462454 A1C [facility] 72295-5 6.2 % 03/05/2013 Unknown THYROID STIMULATING HORMONE 45455 TSH 6.986 uIU/ML 03/05/2013 Unknown COMPLETE BLOOD COUNT 3449525 WBC 12.7 10e9/L 013 Unknown COMPLETE BLOOD COUNT 3794080 RBC 4.53 10e12/L 2012 Unknown COMPLETE BLOOD COUNT 3278850 HGB 14.7 g/dL 3 Unknown COMPLETE BLOOD COUNT 6205380 HCT DET 43.1 % 3 Unknown COMPLETE BLOOD COUNT 7123821 MCV 95.1 fL 3 Unknown COMPLETE BLOOD COUNT 3277796 MCH 32.5 pg 3 Unknown COMPLETE BLOOD COUNT 9374108 MCHC 34.1 g/dL 3 Unknown COMPLETE BLOOD COUNT 3304676 PLT 346 10e9/L 03/05/20 13 Unknown COMPLETE BLOOD COUNT 1374691 MPV 9.5 fL 3 Unknown COMPLETE BLOOD COUNT 6847867 CADEN % 67.6 % 3 Unknown COMPLETE BLOOD COUNT 7879671 LY % 22.1 % 3 Unknown COMPLETE BLOOD COUNT 6701276 MON % 6.6 % 3 Unknown COMPLETE BLOOD COUNT 7374693 EOS % 3.3 % 3 Unknown COMPLETE BLOOD COUNT 3588711 BASO % 0.4 % 3 Unknown COMPLETE BLOOD COUNT 8224869 RDW 14.0 % 3 Unknown COMPLETE BLOOD COUNT 6879067 ABS CADEN 8.59 10e9/L 013 Unknown COMPLETE BLOOD COUNT 2942825 ABS LYMPH 2.81 10e9/L 013 Unknown COMPLETE BLOOD COUNT 8581545 ABS MONO 0.84 10e9/L 013 Unknown COMPLETE BLOOD COUNT 5038158 ABS EOS 0.42 10e9/L 013 Unknown COMPLETE BLOOD COUNT 4130749 ABS BASO 0.05 10e9/L 013 Unknown COMPLETE BLOOD COUNT 2485143 RDW-SD 46.0 fL 3 Unknown FREE T4 17705 FREE T4 1.14 NG/DL 03/05/2013 Unknown COMPREHENSIVE METABOLIC 42504 AST 17 U/L 2012 Unknown COMPREHENSIVE METABOLIC 81459 ALT 12 IU/L 2012 Unknown COMPREHENSIVE METABOLIC 64287 BUN 24 MG/DL 2012 Unknown COMPREHENSIVE METABOLIC 89375 ALBUMIN 4.2 GM/DL 2012 Unknown COMPREHENSIVE METABOLIC 42344 CHLORIDE 93 MMOL/L 2012 Unknown COMPREHENSIVE METABOLIC 25511 BILI TOT 0.5 MG/DL 2012 Unknown COMPREHENSIVE METABOLIC 76376 ALK PHOS 75 U/L 2012 Unknown COMPREHENSIVE METABOLIC 61547 SODIUM 141 MMOL/L 03/05 Unknown COMPREHENSIVE METABOLIC 72314 CREATININE 1.36 MG/DL 02/09 Unknown COMPREHENSIVE METABOLIC 47997 CALCIUM 9.2 MG/DL 2012 Unknown COMPREHENSIVE METABOLIC 16563 POTASSIUM 3.1 MMOL/L 03/05 Unknown COMPREHENSIVE METABOLIC 25020 PROT TOT 6.9 GM/DL 2012 Unknown COMPREHENSIVE METABOLIC 76923 Glucose 123 MG/DL 2012 Unknown COMPREHENSIVE METABOLIC 84735 BICARB 36 MMOL/L 2012 Unknown COMPREHENSIVE METABOLIC 94087 ANION GAP 12 MEQ/L 2012 Unknown GFR CALC 0459892 GFR AA 51.0L ML/MIN 03/05/2013 Unknow n GFR CALC 5503144 GFR NON-AA 42.0L ML/MIN 03/05/2013 Unkno wn COMPREHENSIVE METABOLIC 19163 AST 14 U/L 2012 Unknown COMPREHENSIVE METABOLIC 62663 ALT 11 IU/L 2012 Unknown COMPREHENSIVE METABOLIC 28588 BUN 16 MG/DL 2012 Unknown COMPREHENSIVE METABOLIC 37610 ALBUMIN 4.2 GM/DL 2012 Unknown COMPREHENSIVE METABOLIC 43762 CHLORIDE 98 MMOL/L 2012 Unknown COMPREHENSIVE METABOLIC 20728 BILI TOT 0.4 MG/DL 2012 Unknown COMPREHENSIVE METABOLIC 10936 ALK PHOS 77 U/L 2012 Unknown COMPREHENSIVE METABOLIC 87695 SODIUM 139 MMOL/L 09/25 Unknown COMPREHENSIVE METABOLIC 07693 CREATININE 0.86 MG/DL 09/10 Unknown COMPREHENSIVE METABOLIC 71622 CALCIUM 9.5 MG/DL 2012 Unknown COMPREHENSIVE METABOLIC 46022 POTASSIUM 3.8 MMOL/L 09/25 Unknown COMPREHENSIVE METABOLIC 72150 PROT TOT 6.8 GM/DL 2012 Unknown COMPREHENSIVE METABOLIC 28523 Glucose 91 MG/DL 2012 Unknown COMPREHENSIVE METABOLIC 41895 BICARB 32 MMOL/L 2012 Unknown COMPREHENSIVE METABOLIC 45563 ANION GAP 9 MEQ/L 2012 Unknown FREE T4 72545 FREE T4 0.98 NG/DL 09/25/2012 Unknown THYROID STIMULATING HORMONE 01357 TSH 1.736 uIU/ML 09/25/2012 Unknown C-REACTIVE PROTEIN (CRP) QUANT 25262 CRP 2.3 MG/DL 09/25/2012 Unknown COMPLETE BLOOD COUNT 8873132 WBC 11.9 10e9/L 013 Unknown COMPLETE BLOOD COUNT 4546008 RBC 4.87 10e12/L 2012 Unknown COMPLETE BLOOD COUNT 6476597 HGB 15.1 g/dL 3 Unknown COMPLETE BLOOD COUNT 3320430 HCT DET 44.8 % 3 Unknown COMPLETE BLOOD COUNT 5153725 MCV 92.0 fL 3 Unknown COMPLETE BLOOD COUNT 6429336 MCH 31.0 pg 3 Unknown COMPLETE BLOOD COUNT 6987002 MCHC 33.7 g/dL 3 Unknown COMPLETE BLOOD COUNT 5503003 PLT 343 10e9/L 09/25/19 13 Unknown COMPLETE BLOOD COUNT 0011322 MPV 9.0 fL 3 Unknown COMPLETE BLOOD COUNT 9766989 CADEN % 68.2 % 3 Unknown COMPLETE BLOOD COUNT 2463626 LY % 22.4 % 3 Unknown COMPLETE BLOOD COUNT 4079691 MON % 6.4 % 3 Unknown COMPLETE BLOOD COUNT 2957217 EOS % 2.7 % 3 Unknown COMPLETE BLOOD COUNT 4574070 BASO % 0.3 % 3 Unknown COMPLETE BLOOD COUNT 5697085 RDW 13.8 % 3 Unknown COMPLETE BLOOD COUNT 2269534 ABS CADEN 8.12 10e9/L 013 Unknown COMPLETE BLOOD COUNT 7255848 ABS LYMPH 2.67 10e9/L 013 Unknown COMPLETE BLOOD COUNT 5659426 ABS MONO 0.76 10e9/L 013 Unknown COMPLETE BLOOD COUNT 0474448 ABS EOS 0.32 10e9/L 013 Unknown COMPLETE BLOOD COUNT 8791059 ABS BASO 0.04 10e9/L 013 Unknown COMPLETE BLOOD COUNT 5985602 RDW-SD 45.6 fL 3 Unknown GFR CALC 0945023 GFR AA >60 ML/MIN 09/25/2012 Unknown GFR CALC 2915720 GFR NON-AA >60 ML/MIN 09/25/2012 Unknown ERYTHROCYTE SEDIMENTATION RATE 26901 ESR 19 MM/HR 05/06/2012 Unknown VITAMIN B 12 FOLIC ACID 03927|27753 VIT B 12 922 PG/ML 04/11 Unknown VITAMIN B 12 FOLIC ACID 36424|87898 FOLIC ACID 13.6 NG/ML Unknown URIC ACID 58261 URIC ACID 7.8 MG/DL 05/06/2012 Unknown COMPLETE BLOOD COUNT 16640 WBC 11.9 10e9/L 012 Unknown COMPLETE BLOOD COUNT 56449 RBC 5.30 10e12/L 2011 Unknown COMPLETE BLOOD COUNT 37932 HGB 16.6 g/dL 2 Unknown COMPLETE BLOOD COUNT 85533 HCT DET 47.2 % 2 Unknown COMPLETE BLOOD COUNT 71143 MCV 89.1 fL 2 Unknown COMPLETE BLOOD COUNT 16723 MCH 31.3 pg 2 Unknown COMPLETE BLOOD COUNT 46414 MCHC 35.2 g/dL 2 Unknown COMPLETE BLOOD COUNT 50589 PLT 362 10e9/L 05/06/20 12 Unknown COMPLETE BLOOD COUNT 81201 MPV 9.4 fL 2 Unknown COMPLETE BLOOD COUNT 10607 CADEN % 68.2 % 2 Unknown COMPLETE BLOOD COUNT 24859 LY % 22.0 % 2 Unknown COMPLETE BLOOD COUNT 73493 MON % 6.9 % 2 Unknown COMPLETE BLOOD COUNT 03171 EOS % 2.6 % 2 Unknown COMPLETE BLOOD COUNT 87295 BASO % 0.3 % 2 Unknown COMPLETE BLOOD COUNT 13619 RDW 12.8 % 2 Unknown COMPLETE BLOOD COUNT 28053 ABS CADEN 8.12 10e9/L 012 Unknown COMPLETE BLOOD COUNT 25363 ABS LYMPH 2.62 10e9/L 012 Unknown COMPLETE BLOOD COUNT 47653 ABS MONO 0.82 10e9/L 012 Unknown COMPLETE BLOOD COUNT 20357 ABS EOS 0.31 10e9/L 012 Unknown COMPLETE BLOOD COUNT 45476 ABS BASO 0.04 10e9/L 012 Unknown COMPLETE BLOOD COUNT 16708 RDW-SD 41.5 fL 2 Unknown GFR CALC 9760611 GFR AA >60 ML/MIN 05/06/2012 Unknown GFR CALC 0573110 GFR NON-AA 58.0L ML/MIN 05/06/2012 Unkno wn FREE T4 19744 FREE T4 1.15 NG/DL 05/06/2012 Unknown THYROID STIMULATING HORMONE 10213 TSH 1.568 uIU/ML 05/06/2012 Unknown COMPREHENSIVE METABOLIC 56404 AST 20 U/L 2011 Unknown COMPREHENSIVE METABOLIC 09091 ALT 12 IU/L 2011 Unknown COMPREHENSIVE METABOLIC 43993 BUN 20 MG/DL 2011 Unknown COMPREHENSIVE METABOLIC 25954 ALBUMIN 4.5 GM/DL 2011 Unknown COMPREHENSIVE METABOLIC 26590 CHLORIDE 91 MMOL/L 2011 Unknown COMPREHENSIVE METABOLIC 40465 BILI TOT 0.4 MG/DL 2011 Unknown COMPREHENSIVE METABOLIC 00013 ALK PHOS 73 U/L 2011 Unknown COMPREHENSIVE METABOLIC 24686 SODIUM 139 MMOL/L 05/06 Unknown COMPREHENSIVE METABOLIC 07820 CREATININE 1.02 MG/DL 04/11 Unknown COMPREHENSIVE METABOLIC 82932 CALCIUM 9.7 MG/DL 2011 Unknown COMPREHENSIVE METABOLIC 41608 POTASSIUM 3.1 MMOL/L 05/06 Unknown COMPREHENSIVE METABOLIC 20810 PROT TOT 7.3 GM/DL 2011 Unknown COMPREHENSIVE METABOLIC 14033 Glucose 118 MG/DL 2011 Unknown COMPREHENSIVE METABOLIC 67521 BICARB 33 MMOL/L 2011 Unknown COMPREHENSIVE METABOLIC 76507 ANION GAP 15 MEQ/L 2011 Unknown Procedures Procedure Codes Date ROUTINE VENIPUNCTURE CPT-4: 79258 09/29/2019 URINALYSIS NONAUTO W/O SCOPE CPT-4: 50735 09/29/2019 COMPREHEN METABOLIC PANEL CPT-4: 82737 09/29/2019 LIPID PANEL CPT-4: 00550 09/29/2019 A1C HPLC CPT-4: 80666 09/29/2019 ASSAY OF FREE THYROXINE CPT-4: 82661 09/29/2019 ASSAY THYROID STIM HORMONE CPT-4: 58038 09/29/2019 COMPLETE CBC W/AUTO DIFF WBC CPT-4: 14201 09/29/2019 URINALYSIS NONAUTO W/O SCOPE CPT-4: 93863 09/30/2018 MICROALBUMIN QUANTITATIVE CPT-4: 65574 09/30/2018 CEFTRIAXONE SODIUM INJECTION CPT-4: J0696 06/19/2018 THER/PROPH/DIAG INJ SC/IM CPT-4: 81125 06/19/2018 CEFTRIAXONE SODIUM INJECTION CPT-4: J0696 06/17/2018 THER/PROPH/DIAG INJ SC/IM CPT-4: 47616 06/17/2018 THER/PROPH/DIAG INJ SC/IM CPT-4: 48456 05/16/2018 KETOROLAC TROMETHAMINE INJ CPT-4: J1885 05/16/2018 ONDANSETRON HCL INJECTION CPT-4: J2405 05/16/2018 THER/PROPH/DIAG INJ SC/IM CPT-4: 27790 05/16/2018 ROUTINE VENIPUNCTURE CPT-4: 98786 03/20/2018 COMPREHEN METABOLIC PANEL CPT-4: 22611 03/20/2018 DEXAMETHASONE SODIUM PHOS CPT-4: J1100 02/11/2018 THER/PROPH/DIAG INJ SC/IM CPT-4: 50000 02/11/2018 TRIAMCINOLONE ACET INJ NOS CPT-4: J3301 02/11/2018 CEFTRIAXONE SODIUM INJECTION CPT-4: J0696 02/01/2018 THER/PROPH/DIAG INJ SC/IM CPT-4: 19637 02/01/2018 CEFTRIAXONE SODIUM INJECTION CPT-4: J0696 01/30/2018 THER/PROPH/DIAG INJ SC/IM CPT-4: 70370 01/30/2018 ROUTINE VENIPUNCTURE CPT-4: 48289 12/10/2017 ASSAY OF FREE THYROXINE CPT-4: 80670 12/10/2017 ASSAY THYROID STIM HORMONE CPT-4: 49498 12/10/2017 COMPREHEN METABOLIC PANEL CPT-4: 96084 12/10/2017 COMPLETE CBC W/AUTO DIFF WBC CPT-4: 50708 12/10/2017 LIPID PANEL CPT-4: 14816 12/10/2017 A1C HPLC CPT-4: 62799 12/10/2017 CEFTRIAXONE SODIUM INJECTION CPT-4: J0696 12/10/2017 THER/PROPH/DIAG INJ SC/IM CPT-4: 35747 12/10/2017 CEFTRIAXONE SODIUM INJECTION CPT-4: J0696 12/07/2017 THER/PROPH/DIAG INJ SC/IM CPT-4: 50944 12/07/2017 DEXAMETHASONE SODIUM PHOS CPT-4: J1100 12/07/2017 THER/PROPH/DIAG INJ SC/IM CPT-4: 18412 12/07/2017 CEFTRIAXONE SODIUM INJECTION CPT-4: J0696 10/08/2017 THER/PROPH/DIAG INJ SC/IM CPT-4: 69256 10/08/2017 CEFTRIAXONE SODIUM INJECTION CPT-4: J0696 09/21/2017 THER/PROPH/DIAG INJ SC/IM CPT-4: 22946 09/21/2017 CEFTRIAXONE SODIUM INJECTION CPT-4: J0696 09/20/2017 THER/PROPH/DIAG INJ SC/IM CPT-4: 04225 09/20/2017 REMOVAL OF NAIL PLATE CPT-4: 40099 08/29/2017 THER/PROPH/DIAG INJ SC/IM CPT-4: 17667 08/29/2017 TRIAMCINOLONE ACET INJ NOS CPT-4: J3301 08/29/2017 CEFTRIAXONE SODIUM INJECTION CPT-4: J0696 08/29/2017 THER/PROPH/DIAG INJ SC/IM CPT-4: 48453 08/29/2017 DESTRUCT PREMALG LESION (Cryosurgery) CPT-4: 21605 ROUTINE VENIPUNCTURE CPT-4: 50847 06/27/2017 ASSAY OF FREE THYROXINE CPT-4: 13654 06/27/2017 ASSAY THYROID STIM HORMONE CPT-4: 78901 06/27/2017 COMPREHEN METABOLIC PANEL CPT-4: 72088 06/27/2017 COMPLETE CBC W/AUTO DIFF WBC CPT-4: 83085 06/27/2017 EXC TR-EXT B9+REECE 0.5 CM< CPT-4: 52884 01/24/2017 THER/PROPH/DIAG INJ SC/IM CPT-4: 55821 08/02/2016 DEXAMETHASONE SODIUM PHOS CPT-4: J1100 08/02/2016 DESTRUCT PREMALG LESION (Cryosurgery) CPT-4: 75393 EXC TR-EXT B9+REECE 0.5 CM< CPT-4: 36626 08/01/2016 AEROBIC WOUND CULTURE & STN CPT-4: 99703 07/06/2016 CEFTRIAXONE SODIUM INJECTION CPT-4: J0696 05/25/2016 THER/PROPH/DIAG INJ SC/IM CPT-4: 48701 05/25/2016 THER/PROPH/DIAG INJ SC/IM CPT-4: 97161 04/26/2016 DEXAMETHASONE SODIUM PHOS CPT-4: J1100 04/26/2016 CEFTRIAXONE SODIUM INJECTION CPT-4: J0696 04/26/2016 THER/PROPH/DIAG INJ SC/IM CPT-4: 38679 04/26/2016 THER/PROPH/DIAG INJ SC/IM CPT-4: 70526 02/09/2016 TRIAMCINOLONE ACET INJ NOS CPT-4: J3301 02/09/2016 URINALYSIS NONAUTO W/O SCOPE CPT-4: 45499 01/24/2016 URINE CULTURE/ COLONY COUNT CPT-4: 41532 01/24/2016 THER/PROPH/DIAG INJ SC/IM CPT-4: 41237 12/08/2015 TRIAMCINOLONE ACET INJ NOS CPT-4: J3301 12/08/2015 THER/PROPH/DIAG INJ SC/IM CPT-4: 97160 10/07/2015 TRIAMCINOLONE ACET INJ NOS CPT-4: J3301 10/07/2015 DESTRUCT PREMALG LESION (Cryosurgery) CPT-4: 17727 THER/PROPH/DIAG INJ SC/IM CPT-4: 92786 03/16/2015 METHYLPREDNISOLONE 40 MG INJ CPT-4: J1030 03/16/2015 DESTRUCT PREMALG LESION (Cryosurgery) CPT-4: 36470 THER/PROPH/DIAG INJ SC/IM CPT-4: 25219 09/11/2014 METHYLPREDNISOLONE 40 MG INJ CPT-4: J1030 09/11/2014 TRIAMCINOLONE ACET INJ NOS CPT-4: J3301 09/11/2014 CEFTRIAXONE SODIUM INJECTION CPT-4: J0696 09/11/2014 THER/PROPH/DIAG INJ SC/IM CPT-4: 82650 09/11/2014 ROUTINE VENIPUNCTURE CPT-4: 64739 08/27/2014 COMPREHEN METABOLIC PANEL CPT-4: 41964 08/27/2014 COMPLETE CBC W/AUTO DIFF WBC CPT-4: 14328 08/27/2014 LIPID PANEL CPT-4: 86951 08/27/2014 ROUTINE VENIPUNCTURE CPT-4: 90478 07/21/2014 ASSAY OF AMYLASE CPT-4: 54835 07/21/2014 ASSAY OF LIPASE CPT-4: 07071 07/21/2014 THER/PROPH/DIAG INJ SC/IM CPT-4: 97240 07/15/2014 TRIAMCINOLONE ACET INJ NOS CPT-4: J3301 07/15/2014 ROUTINE VENIPUNCTURE CPT-4: 59946 05/14/2014 ASSAY OF FREE THYROXINE CPT-4: 76566 05/14/2014 ASSAY THYROID STIM HORMONE CPT-4: 61560 05/14/2014 COMPREHEN METABOLIC PANEL CPT-4: 70517 05/14/2014 COMPLETE CBC W/AUTO DIFF WBC CPT-4: 19207 05/14/2014 LIPID PANEL CPT-4: 74451 05/14/2014 CEFTRIAXONE SODIUM INJECTION CPT-4: J0696 04/21/2014 THER/PROPH/DIAG INJ SC/IM CPT-4: 68057 04/21/2014 THER/PROPH/DIAG INJ SC/IM CPT-4: 03158 04/21/2014 TRIAMCINOLONE ACET INJ NOS CPT-4: J3301 04/21/2014 THER/PROPH/DIAG INJ SC/IM CPT-4: 92924 03/04/2014 METHYLPREDNISOLONE 40 MG INJ CPT-4: J1030 03/04/2014 TRIAMCINOLONE ACET INJ NOS CPT-4: J3301 03/04/2014 CEFTRIAXONE SODIUM INJECTION CPT-4: J0696 03/04/2014 THER/PROPH/DIAG INJ SC/IM CPT-4: 77432 03/04/2014 TDAP VACCINE 7 YRS/> IM CPT-4: 54112 02/27/2014 IMMUNIZATION ADMIN CPT-4: 64787 02/27/2014 DESTRUCT PREMALG LESION (Cryosurgery) CPT-4: 72884 DESTRUCT PREMALG LES 2-14 CPT-4: 86978 01/13/2014 THER/PROPH/DIAG INJ SC/IM CPT-4: 41845 10/21/2013 METHYLPREDNISOLONE 40 MG INJ CPT-4: J1030 10/21/2013 TRIAMCINOLONE ACET INJ NOS CPT-4: J3301 10/21/2013 CEFTRIAXONE SODIUM INJECTION CPT-4: J0696 08/27/2013 THER/PROPH/DIAG INJ SC/IM CPT-4: 52097 08/27/2013 THER/PROPH/DIAG INJ SC/IM CPT-4: 59284 08/27/2013 METHYLPREDNISOLONE 40 MG INJ CPT-4: J1030 08/27/2013 TRIAMCINOLONE ACET INJ NOS CPT-4: J3301 08/27/2013 THER/PROPH/DIAG INJ SC/IM CPT-4: 88871 06/23/2013 METHYLPREDNISOLONE 40 MG INJ CPT-4: J1030 06/23/2013 TRIAMCINOLONE ACET INJ NOS CPT-4: J3301 06/23/2013 THER/PROPH/DIAG INJ SC/IM CPT-4: 79579 05/26/2013 METHYLPREDNISOLONE 40 MG INJ CPT-4: J1030 05/26/2013 TRIAMCINOLONE ACET INJ NOS CPT-4: J3301 05/26/2013 ROUTINE VENIPUNCTURE CPT-4: 02353 03/05/2013 ASSAY OF FREE THYROXINE CPT-4: 04137 03/05/2013 ASSAY THYROID STIM HORMONE CPT-4: 62145 03/05/2013 COMPREHEN METABOLIC PANEL CPT-4: 76122 03/05/2013 COMPLETE CBC W/AUTO DIFF WBC CPT-4: 69387 03/05/2013 A1C GLYCOSYLATED HEMOGLOBIN TEST CPT-4: 44642 013 DRAIN/INJECT JOINT/BURSA CPT-4: 74126 12/04/2012 METHYLPREDNISOLONE 40 MG INJ CPT-4: J1030 12/04/2012 TRIAMCINOLONE ACET INJ NOS CPT-4: J3301 12/04/2012 CEFTRIAXONE SODIUM INJECTION CPT-4: J0696 11/21/2012 THER/PROPH/DIAG INJ SC/IM CPT-4: 03251 11/21/2012 THER/PROPH/DIAG INJ SC/IM CPT-4: 17342 10/14/2012 METHYLPREDNISOLONE 40 MG INJ CPT-4: J1030 10/14/2012 TRIAMCINOLONE ACET INJ NOS CPT-4: J3301 10/14/2012 URINALYSIS NONAUTO W/O SCOPE CPT-4: 66164 09/27/2012 ROUTINE VENIPUNCTURE CPT-4: 08969 09/25/2012 ASSAY OF FREE THYROXINE CPT-4: 85890 09/25/2012 ASSAY THYROID STIM HORMONE CPT-4: 88103 09/25/2012 COMPREHEN METABOLIC PANEL CPT-4: 79916 09/25/2012 COMPLETE CBC W/AUTO DIFF WBC CPT-4: 48992 09/25/2012 C-REACTIVE PROTEIN CPT-4: 11392 09/25/2012 THER/PROPH/DIAG INJ SC/IM CPT-4: 74402 08/29/2012 METHYLPREDNISOLONE 40 MG INJ CPT-4: J1030 08/29/2012 TRIAMCINOLONE ACET INJ NOS CPT-4: J3301 08/29/2012 DESTRUCT PREMALG LESION (Cryosurgery) CPT-4: 43652 THER/PROPH/DIAG INJ SC/IM CPT-4: 38670 05/06/2012 METHYLPREDNISOLONE 40 MG INJ CPT-4: J1030 05/06/2012 TRIAMCINOLONE ACET INJ NOS CPT-4: J3301 05/06/2012 VITAMIN B 12 FOLIC ACID CPT-4: 30341|56159 05/06/2012 RBC SED RATE AUTOMATED CPT-4: 97918 05/06/2012 ROUTINE VENIPUNCTURE CPT-4: 37620 05/06/2012 ASSAY OF FREE THYROXINE CPT-4: 57446 05/06/2012 ASSAY THYROID STIM HORMONE CPT-4: 23602 05/06/2012 COMPREHEN METABOLIC PANEL CPT-4: 96345 05/06/2012 COMPLETE CBC W/AUTO DIFF WBC CPT-4: 43802 05/06/2012 ASSAY OF BLOOD/URIC ACID CPT-4: 57846 05/06/2012 THER/PROPH/DIAG INJ SC/IM CPT-4: 29490 03/19/2012 KETOROLAC TROMETHAMINE INJ CPT-4: J1885 03/19/2012 KETOROLAC TROMETHAMINE INJ CPT-4: J1885 01/30/2012 THER/PROPH/DIAG INJ SC/IM CPT-4: 79774 01/30/2012 PROMETHAZINE HCL INJECTION CPT-4: J2550 01/30/2012 THER/PROPH/DIAG INJ SC/IM CPT-4: 59651 01/24/2012 METHYLPREDNISOLONE 40 MG INJ CPT-4: J1030 01/24/2012 TRIAMCINOLONE ACET INJ NOS CPT-4: J3301 01/24/2012 THER/PROPH/DIAG INJ SC/IM CPT-4: 26264 09/13/2011 KETOROLAC TROMETHAMINE INJ CPT-4: J1885 09/13/2011 THER/PROPH/DIAG INJ SC/IM CPT-4: 74469 09/13/2011 PROMETHAZINE HCL INJECTION CPT-4: J2550 09/13/2011 CEFTRIAXONE SODIUM INJECTION CPT-4: J0696 07/20/2011 THER/PROPH/DIAG INJ SC/IM CPT-4: 46799 07/20/2011 THER/PROPH/DIAG INJ SC/IM CPT-4: 56670 07/20/2011 METHYLPREDNISOLONE INJECTION CPT-4: J2930 07/20/2011 URINALYSIS NONAUTO W/O SCOPE CPT-4: 48518 05/09/2011 CEFTRIAXONE SODIUM INJECTION CPT-4: J0696 05/09/2011 THER/PROPH/DIAG INJ SC/IM CPT-4: 90565 05/09/2011 THER/PROPH/DIAG INJ SC/IM CPT-4: 56358 05/09/2011 PROMETHAZINE HCL INJECTION CPT-4: J2550 05/09/2011 HYDRATION IV INFUSION INIT CPT-4: 30958 05/09/2011 DESTRUCT PREMALG LESION (Cryosurgery) CPT-4: 58640 DESTRUCT PREMALG LES 2-14 CPT-4: 38579 07/19/2010 REMOVAL OF SKIN TAGS <W/15 CPT-4: 83798 05/30/2010 THER/PROPH/DIAG INJ SC/IM CPT-4: 80172 04/05/2010 CEFTRIAXONE SODIUM INJECTION CPT-4: J0696 04/05/2010 TRIAMCINOLONE ACET INJ NOS CPT-4: J3301 04/05/2010 METHYLPREDNISOLONE 40 MG INJ CPT-4: J1030 04/05/2010 THER/PROPH/DIAG INJ SC/IM CPT-4: 83723 04/05/2010 TRIAMCINOLONE ACET INJ NOS CPT-4: J3301 03/09/2010 METHYLPREDNISOLONE 40 MG INJ CPT-4: J1030 03/09/2010 THER/PROPH/DIAG INJ SC/IM CPT-4: 26810 03/09/2010 THER/PROPH/DIAG INJ SC/IM CPT-4: 68632 03/09/2010 CEFTRIAXONE SODIUM INJECTION CPT-4: J0696 03/09/2010 Vital Signs Date Vital 10/07/2019 Blood Pressure 1: 134/82 Code: 8480-6 Heart Rate 1: 105 bpm Respiratory Rate: 17 bpm SpO2: 96% Temperature: 36.8 (C) / 98.2 (F) We ight: 198 lbs 09/30/2019 Blood Pressure 1: 132/80 Code: 8480-6 BMI: 35.8 Code: 12404-7 Heart Rate 1: 88 bpm Height: 5'4" Respiratory Rate: 20 bpm SpO2: 95% Tempera ture: 36.9 (C) / 98.5 (F) Weight: 210 lbs 05/28/2019 Blood Pressure 1: 126/82 Code: 8480-6 BMI: 35.0 Code: 23831-8 Heart Rate 1: 88 bpm Height: 5'4" [...] 1: 128/90 Code: 8480-6 BMI: 37.2 Code: 41522-2 Heart Rate 1: 84 bpm Height: 5'4" Respiratory Rate: 20 bpm SpO2: 95% Tempera ture: 36.6 (C) / 97.8 (F) Weight: 217 lbs 08/27/2018 Blood Pressure 1: 128/88 Code: 8480-6 BMI: 38.3 Code: 68063-1 Heart Rate 1: 84 bpm Height: 5'4" [...] 1: 119/72 Code: 8480-6 BMI: 37.4 Code: 46580-6 Heart Rate 1: 82 bpm Height: 5'4" Respiratory Rate: 12 bpm SpO2: 94% Tempera ture: 35.2 (C) / 95.4 (F) Weight: 218 lbs 12/18/2017 Blood Pressure 1: 128/86 Code: 8480-6 BMI: 37.8 Code: 44032-6 Heart Rate 1: 84 bpm Height: 5'4" [...] 1: 128/82 Code: 8480-6 BMI: 35.5 Code: 22831-4 Heart Rate 1: 84 bpm Height: 5'4" [...] 1: 128/82 Code: 8480-6 BMI: 30.2 Code: 44125-6 Heart Rate 1: 80 bpm Height: 5'4" [...] 1: 128/86 Code: 8480-6 BMI: 32.8 Code: 64756-7 Heart Rate 1: 66 bpm Height: 5'4" Respiratory Rate: 18 bpm Temperature: 36 .3 (C) / 97.3 (F) Weight: 191 lbs 06/23/2013 Blood Pressure 1: 132/94 Code: 8480-6 BMI: 34.0 Code: 16221-6 Heart Rate 1: 84 bpm Height: 5'4" Respiratory Rate: 20 bpm Temperature: 36 .8 (C) / 98.2 (F) Weight: 198 lbs 05/26/2013 Blood Pressure 1: 114/80 Code: 8480-6 BMI: 35.0 Code: 70598-8 Heart Rate 1: 80 bpm Height: 5'4" Respiratory Rate: 20 bpm Temperature: 36 .4 (C) / 97.6 (F) Weight: 204 lbs 04/16/2013 Blood Pressure 1: 114/82 Code: 8480-6 BMI: 36.7 Code: 10352-3 Heart Rate 1: 84 bpm Height: 5'4" Respiratory Rate: 20 bpm Temperature: 36 .7 (C) / 98.0 (F) Weight: 214 lbs 03/05/2013 Blood Pressure 1: 136/90 Code: 8480-6 BMI: 37.1 Code: 41721-5 Heart Rate 1: 84 bpm Height: 5'4" [...] 1: 168/114 Code: 8480-6 BMI: 36.2 Code: 93868-3 Heart Rate 1: 104 bpm Height: 5'4" Respiratory Rate: 20 bpm Temperature: 36 .8 (C) / 98.2 (F) Weight: 211 lbs 11/22/2012 Blood Pressure 1: 128/90 Code: 8480-6 Heart Rate 1: 88 bpm Respiratory Rate: 20 bpm SpO2: 96% Temperature: 36.8 (C) / 98.2 (F) 11/21/2012 Blood Pressure 1: 146/100 Code: 8480-6 BMI: 35.7 Code: 90516-4 Heart Rate 1: 96 bpm Height: 5'4" [...] 1: 138/100 Code: 8480-6 BMI: 35.7 Code: 28665-0 Heart Rate 1: 96 bpm Height: 5'4" Respiratory Rate: 20 bpm Temperature: 36 .8 (C) / 98.2 (F) Weight: 208 lbs 05/06/2012 Blood Pressure 1: 154/102 Code: 8480-6 BMI: 34.7 Code: 68991-9 Heart Rate 1: 116 bpm Height: 5'4" Respiratory Rate: 20 bpm Temperature: 36 .8 (C) / 98.2 (F) Weight: 202 lbs 04/03/2012 Blood Pressure 1: 134/94 Code: 8480-6 BMI: 34.8 Code: 19704-5 Heart Rate 1: 108 bpm Height: 5'4" Respiratory Rate: 20 bpm Temperature: 36 .8 (C) / 98.2 (F) Weight: 203 lbs 03/19/2012 Blood Pressure 1: 148/106 Code: 8480-6 BMI: 35.0 Code: 86412-4 Heart Rate 1: 100 bpm Height: 5'4" Respiratory Rate: 20 bpm Temperature: 36 .6 (C) / 97.9 (F) Weight: 204 lbs 02/22/2012 Blood Pressure 1: 146/94 Code: 8480-6 He art Rate 1: 88 bpm 02/21/2012 Blood Pressure 1: 172/120 Code: 8480-6 B lood Pressure 2: 152/106 Code: 8480-6 Heart Rate 1: 116 bpm 02/20/2012 Blood Pressure 1: 160/100 Code: 8480-6 BMI: 32.0 Code: 72427-8 Heart Rate 1: 84 bpm Height: 5'7" Temperature: 36.5 (C) / 97.7 (F) Weight: 204 lbs 01/30/2012 Blood Pressure 1: 152/110 Code: 8480-6 BMI: 32.0 Code: 62119-6 Heart Rate 1: 116 bpm Height: 5'7" Respiratory Rate: 20 bpm Temperature: 37 .0 (C) / 98.6 (F) Weight: 204 lbs 01/24/2012 Blood Pressure 1: 146/100 Code: 8480-6 BMI: 32.0 Code: 14825-5 Heart Rate 1: 100 bpm Height: 5'7" Respiratory Rate: 20 bpm Temperature: 36 .7 (C) / 98.0 (F) Weight: 204 lbs 01/10/2012 Blood Pressure 1: 156/94 Code: 8480-6 BMI: 32.6 Code: 42489-0 Heart Rate 1: 72 bpm Height: 5'7" Respiratory Rate: 20 bpm Temperature: 36 .8 (C) / 98.2 (F) Weight: 208 lbs 12/11/2011 Blood Pressure 1: 146/100 Code: 8480-6 Heart Rat e 1: 116 bpm Height: 5'7" Respiratory Rate: 20 bpm Temperature: 36.9 (C) / 98.4 (F) We ight: 11/09/2011 Blood Pressure 1: 148/96 Code: 8480-6 BMI: 32.1 Code: 07956-9 Heart Rate 1: 116 bpm Height: 5'7" Respiratory Rate: 20 bpm Temperature: 36 .7 (C) / 98.0 (F) Weight: 205 lbs 09/13/2011 Blood Pressure 1: 126/88 Code: 8480-6 Heart Rate 1: 88 bpm Height: 5'7" Respiratory Rate: 20 bpm Temperature: 36.9 (C) / 98.4 (F) We ight: 08/31/2011 Blood Pressure 1: 118/82 Code: 8480-6 BMI: 32.0 Code: 57140-2 Heart Rate 1: 80 bpm Height: 5'7" Temperature: 36.4 (C) / 97.6 (F) Weight: 204 lbs 07/06/2011 Blood Pressure 1: 128/86 Code: 8480-6 BMI: 30.9 Code: 40169-2 Heart Rate 1: 92 bpm Height: 5'7" Respiratory Rate: 20 bpm Temperature: 36 .9 (C) / 98.4 (F) Weight: 197 lbs 06/06/2011 Blood Pressure 1: 112/74 Code: 8480-6 BMI: 31.0 Code: 71766-4 Heart Rate 1: 72 bpm Height: 5'7" [...] 1: 128/92 Code: 8480-6 BMI: 33.6 Code: 38052-4 Heart Rate 1: 104 bpm Height: 5'4" [...] Check-up Encounters Encounter Performer Location Codes Date ([id number]) OFFICE/OUTPATIENT VISIT EST Diagnosis: Ingrowing nail[ICD10: L60.0] Diagnosis: Type 2 diabetes mellitus with hyperglycemia[ICD10: E11.65] Kathleen ELLISLINE Fabiola APPIAH [facility] CPT-4: 70467 10/07/2019 ([id number]) OFFICE/OUTPATIENT VISIT EST Diagnosis: DM w/o complication type II, uncontrolled[ICD10: E11.65] Diagnosis: Hypertriglyceridemia[ICD10: E78.1] Diagnosis: Essential hypertension[ICD10: I10] María Elena BASURTO TED [facility] CPT-4: 14295 09/30/2019 ([id number]) NURSE/OUTPATIENT VISIT EST Diagnosis: Essential (primary) hypertension[ICD10: I10] Diagnosis: Cervicalgia[ICD10: M54.2] Diagnosis: Hyperglycemia, unspecified[ICD10: R73.9] Diagnosis: Mixed hyperlipidemia[ICD10: E78.2] María Elena BASURTO TED [employer] [facility] CPT-4: 57592 09/29/2019 ([id number]) OFFICE/OUTPATIENT VISIT EST Diagnosis: Essential (primary) hypertension[ICD10: I10] Diagnosis: Fall from bed, sequela[ICD10: W06.XXXS] María Elena REED LucioJj TD [facility] CPT-4: 29291 05/28/2019 ([id number]) NURSE/OUTPATIENT VISIT EST Diagnosis: Essential (primary) hypertension[ICD10: I10] María Elena JUARES LucioJj TD [facility] CPT-4: 84983 05/19/2019 ([id number]) OFFICE/OUTPATIENT VISIT EST Diagnosis: Essential (primary) hypertension[ICD10: I10] Diagnosis: Type 2 diabetes mellitus with hyperglycemia[ICD10: E11.65] Diagnosis: Intervertebral disc disorders with radiculopathy, 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] Diagnosis: Hormone replacement therapy[ICD10: Z79.890] María Elena JUARES LucioJj TD [facility] CPT-4: 98516 01/22/2019 ([id number]) OFFICE/OUTPATIENT VISIT EST Diagnosis: Essential (primary) hypertension[ICD10: I10] Diagnosis: Type 2 diabetes mellitus with hyperglycemia[ICD10: E11.65] María Elena APPIAH [facility] CPT-4: 78604 09/30/2018 ([id number]) OFFICE/OUTPATIENT VISIT EST Diagnosis: Pain in left elbow[ICD10: M25.522] Diagnosis: Acute stress reaction[ICD10: F43.0] Diagnosis: Primary insomnia[ICD10: F51.01] Diagnosis: Abnormal weight gain[ICD10: R63.5] María Elena APPIAH [facility] CPT-4: 68199 08/27/2018 ([id number]) OFFICE/OUTPATIENT VISIT EST Diagnosis: Acute recurrent sinusitis, unspecified[ICD10: J01.91] Diagnosis: Follicular disorder, unspecified[ICD10: L73.9] Diagnosis: Tinea corporis[ICD10: B35.4] María Elena APPIAH [facility] CPT-4: 31604 08/09/2018 ([id number]) OFFICE/OUTPATIENT VISIT EST Diagnosis: Tinea corporis[ICD10: B35.4] Diagnosis: Anxiety disorder, unspecified[ICD10: F41.9] Diagnosis: Menopausal and female climacteric states[ICD10: N95.1] María Elena APPIAH [facility] CPT-4: 89488 07/22/2018 ([id number]) NURSE/OUTPATIENT VISIT EST Diagnosis: Cellulitis of right toe[ICD10: L03.031] María Elena APPIAH [facility] CPT-4: 60072 06/19/2018 ([id number]) OFFICE/OUTPATIENT VISIT EST Diagnosis: Cellulitis of right toe[ICD10: L03.031] Kathleen Leijaimaldi KYLAH APPIAH [facility] CPT-4: 27553 06/17/2018 ([id number]) OFFICE/OUTPATIENT VISIT EST Diagnosis: Migraine without aura, intractable, without status migrainosus[ICD10: G43.019] Diagnosis: Zoster without complications[ICD10: B02.9] Kathleen Leijaimaldi MARÍA ELENA APPIAH [facility] CPT-4: 94407 05/16/2018 ([id number]) OFFICE/OUTPATIENT VISIT EST Diagnosis: Cellulitis of right lower limb[ICD10: L03.115] Kathleen APPIAH DO [facility] CPT-4: 29674 03/20/2018 ([id number]) OFFICE/OUTPATIENT VISIT EST Diagnosis: Cellulitis of right lower limb[ICD10: L03.115] Kathleen APPIAH DO [facility] CPT-4: 22001 03/18/2018 ([id number]) OFFICE/OUTPATIENT VISIT EST Diagnosis: Cellulitis of right lower limb[ICD10: L03.115] Kathleen APPIAH DO [facility] CPT-4: 05459 03/15/2018 ([id number]) OFFICE/OUTPATIENT VISIT EST Diagnosis: Acute sinusitis, unspecified[ICD10: J01.90] Kathleen APPIAH DO [facility] CPT-4: 75257 02/11/2018 ([id number]) NURSE/OUTPATIENT VISIT EST Diagnosis: Otitis media, unspecified, right ear[ICD10: H66.91] María Elena APPIAH [employer] [facility] CPT-4: 87768 02/01/2018 ([id number]) OFFICE/OUTPATIENT VISIT EST Diagnosis: Acute suppurative otitis media without spontaneous rupture of ear drum, left ear[ICD10: H66.002] Diagnosis: Abnormal weight gain[ICD10: R63.5] Diagnosis: Intervertebral disc disorders with radiculopathy, 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] Kathleen APPIAH DO [facility] CPT-4: 99 214 01/30/2018 ([id number]) PREV VISIT EST AGE 40-64 Diagnosis: Encounter for general adult medical examination without abnormal findings[ICD10: Z00.00] Diagnosis: Essential (primary) hypertension[ICD10: I10] Diagnosis: Mixed hyperlipidemia[ICD10: E78.2] Diagnosis: Type 2 diabetes mellitus with hyperglycemia[ICD10: E11.65] Diagnosis: 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] María Elena APPIAH [employer] [facility] CPT-4: 14071 12/18/2017 ([id number]) OFFICE/OUTPATIENT VISIT EST Diagnosis: Cellulitis of right toe[ICD10: L03.031] Diagnosis: Mixed hyperlipidemia[ICD10: E78.2] Diagnosis: Essential (primary) hypertension[ICD10: I10] Diagnosis: Hyperglycemia, unspecified[ICD10: R73.9] Diagnosis: Nontoxic goiter, 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] María Elena APPIAH DO [facility] CPT-4: 64276 12/10/2017 ([id number]) OFFICE/OUTPATIENT VISIT EST Diagnosis: Cellulitis of right toe[ICD10: L03.031] Diagnosis: Acute sinusitis, unspecified[ICD10: J01.90] Kathleen APPIAH DO [facility] CPT-4: 87633 12/07/2017 OFFICE/OUTPATIENT VISIT EST Diagnosis: Acute maxillary sinusitis, unspecified[ICD10: J01.00] Kathleen APPIAH DO [facility] CPT-4: 73340 10/08/2017 ([id number]) OFFICE/OUTPATIENT VISIT EST Diagnosis: Cellulitis of left toe[ICD10: L03.032] María Elena ISAAC [employer] APPIAH [facility] CPT-4: 54993 09/21/2017 ([id number]) OFFICE/OUTPATIENT VISIT EST Diagnosis: Insomnia, unspecified[ICD10: G47.00] Diagnosis: Major depressive disorder, single episode, unspecified[ICD10: F32.9] Diagnosis: Anxiety disorder, unspecified[ICD10: F41.9] Diagnosis: Cellulitis of left toe[ICD10: L03.032] Diagnosis: Snoring[ICD10: R06.83] Kathleen APPIAH DO [facility] CPT-4: 15604 09/20/2017 ([id number]) OFFICE/OUTPATIENT VISIT EST Diagnosis: Cellulitis of left toe[ICD10: L03.032] María Elena APPIAH DO [facility] CPT-4: 14385 07/19/2017 OFFICE/OUTPATIENT VISIT EST Diagnosis: Chronic sinusitis, unspecified[ICD10: J32.9] Diagnosis: Generalized hyperhidrosis[ICD10: R61] Kathleen APPIAH DO [facility] CPT-4: 82749 06/27/2017 ([id number]) OFFICE/OUTPATIENT VISIT EST Diagnosis: Intervertebral disc disorders with radiculopathy, 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] Diagnosis: Primary insomnia[ICD10: F51.01] Diagnosis: Other fatigue[ICD10: R53.83] María Elena APPIAH DO [facility] CPT-4: 07635 04/10/2017 ([id number]) OFFICE/OUTPATIENT VISIT EST Diagnosis: Primary insomnia[ICD10: F51.01] Diagnosis: Localized edema[ICD10: R60.0] Diagnosis: 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] María Elena APPIAH DO [facility] CPT-4: 76062 12/13/2016 ([id number]) OFFICE/OUTPATIENT VISIT EST Diagnosis: Primary insomnia[ICD10: F51.01] Diagnosis: Cyanosis[ICD10: R23.0] María Elena Bazzi [facility] CPT-4: 04614 11/01/2016 ([id number]) PREV VISIT EST AGE 40-64 Diagnosis: Encounter for gynecological examination (general) (routine) without abnormal findings[ICD10: Z01.419] Diagnosis: Encounter for routine child health examination without abnormal findings[ICD10: Z00.129] María Elena APPIAH [facility] CPT-4: 31352 10/17/2016 ([id number]) OFFICE/OUTPATIENT VISIT EST Diagnosis: Other seasonal allergic rhinitis[ICD10: J30.2] María Elena APPIAH DO [facility] CPT-4: 11893 10/10/2016 ([id number]) OFFICE/OUTPATIENT VISIT EST Diagnosis: Pain in left arm[ICD10: M79.602] Diagnosis: Contact with and (suspected) exposure to potentially hazardous body fluids[ICD10: Z77.21] Diagnosis: 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, 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] Diagnosis: Unspecified open wound, right foot, sequela[ICD10: S91.301S] María Elena APPIAH [facility] CPT-4: 11418 09/19/2016 ([id number]) OFFICE/OUTPATIENT VISIT EST Diagnosis: Chronic sinusitis, unspecified[ICD10: J32.9] Diagnosis: Allergic rhinitis due to pollen[ICD10: J30.1] María Elena APPIAH DO [facility] CPT-4: 68291 08/24/2016 ([id number]) OFFICE/OUTPATIENT VISIT EST Diagnosis: Acute bronchitis, unspecified[ICD10: J20.9] María Elena APPIAH DO [facility] CPT-4: 10897 08/16/2016 ([id number]) OFFICE/OUTPATIENT VISIT EST Diagnosis: Otitis media, unspecified, right ear[ICD10: H66.91] Diagnosis: Acute bronchitis, unspecified[ICD10: J20.9] María Elena APPIAH DO [facility] CPT-4: 12805 08/10/2016 ([id number]) OFFICE/OUTPATIENT VISIT EST Diagnosis: Acute recurrent sinusitis, unspecified[ICD10: J01.91] Diagnosis: Allergic rhinitis due to pollen[ICD10: J30.1] María Elena APPIAH [facility] CPT-4: 14967 08/02/2016 ([id number]) OFFICE/OUTPATIENT VISIT EST Diagnosis: Pain in unspecified joint[ICD10: M25.50] María Elena APPIAH DO [facility] CPT-4: 59113 07/27/2016 OFFICE/OUTPATIENT VISIT EST Diagnosis: 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] Diagnosis: Acute recurrent sinusitis, unspecified[ICD10: J01.91] Diagnosis: Other fatigue[ICD10: R53.83] Diagnosis: Primary insomnia[ICD10: F51.01] Diagnosis: Pain in unspecified joint[ICD10: M25.50] María Elena APPIAH [facility] CPT-4: 95959 07/20/2016 ([id number]) OFFICE/OUTPATIENT VISIT EST Diagnosis: Blister (nonthermal), left great toe, initial encounter[ICD10: S90.422A] Loan APPIAH DO [facility] CPT-4: 70858 ([id number]) OFFICE/OUTPATIENT VISIT EST Diagnosis: Acute recurrent sinusitis, unspecified[ICD10: J01.91] María Elena APPIAH DO [facility] CPT-4: 11851 05/25/2016 ([id number]) OFFICE/OUTPATIENT VISIT EST Diagnosis: Acute sinusitis, unspecified[ICD10: J01.90] María Elena APPIAH DO [facility] CPT-4: 87316 04/26/2016 ([id number]) OFFICE/OUTPATIENT VISIT EST Diagnosis: Flushing[ICD10: R23.2] Diagnosis: Primary insomnia[ICD10: F51.01] María Elena APPIAH DO [facility] CPT-4: 91508 03/02/2016 ([id number]) OFFICE/OUTPATIENT VISIT EST Diagnosis: Other seasonal allergic rhinitis[ICD10: J30.2] Loan APPIAH DO [facility] CPT-4: 83146 02/09/2016 ([id number]) OFFICE/OUTPATIENT VISIT EST Diagnosis: Primary insomnia[ICD10: F51.01] Diagnosis: Urinary tract infection, site not specified[ICD10: N39.0] María Elena APPIAH DO [facility] CPT-4: 32940 01/24/2016 ([id number]) OFFICE/OUTPATIENT VISIT EST Diagnosis: Other specified disorders of Eustachian tube, bilateral[ICD10: H69.83] Diagnosis: Allergic rhinitis, unspecified[ICD10: J30.9] Loan APPIAH DO [facility] CPT-4: 09996 12/23/2015 ([id number]) OFFICE/OUTPATIENT VISIT EST Diagnosis: Acute recurrent sinusitis, unspecified[ICD10: J01.91] Diagnosis: 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] Diagnosis: Allergic rhinitis, unspecified[ICD10: J30.9] María Elena APPIAH DO [facility] CPT-4: 18046 12/08/2015 ([id number]) OFFICE/OUTPATIENT VISIT EST Diagnosis: Allergic rhinitis, unspecified[ICD10: J30.9] Diagnosis: Pain in unspecified joint[ICD10: M25.50] María Elena APPIAH DO [facility] CPT-4: 65607 10/07/2015 ([id number]) OFFICE/OUTPATIENT VISIT EST Diagnosis: Essential (primary) hypertension[ICD10: I10] María Elena APPIAH DO [facility] CPT-4: 86126 10/06/2015 OFFICE/OUTPATIENT VISIT EST Diagnosis: Localized enlarged lymph nodes[ICD10: R59.0] Diagnosis: Local infection of the skin and subcutaneous tissue, unspecified[ICD10: L08.9] June VelozAlbertadaniella APPIAH DO [facility] CPT- 4: 48511 09/14/2015 ([id number]) OFFICE/OUTPATIENT VISIT EST Diagnosis: Essential (primary) hypertension[ICD10: I10] Diagnosis: Actinic keratosis[ICD10: L57.0] María Elena APPIAH DO [facility] CPT-4: 68765 09/07/2015 ([id number]) OFFICE/OUTPATIENT VISIT EST Diagnosis: Essential (primary) hypertension[ICD10: I10] Diagnosis: Acute stress reaction[ICD10: F43.0] María Elena APPIAH DO [facility] CPT-4: 04013 08/18/2015 ([id number]) OFFICE/OUTPATIENT VISIT EST Diagnosis: Essential (primary) hypertension[ICD10: I10] María Elena APPIAH DO [facility] CPT-4: 68248 07/07/2015 ([id number]) OFFICE/OUTPATIENT VISIT EST Diagnosis: Essential (primary) hypertension[ICD10: I10] María Elena APPIAH DO [facility] CPT-4: 85496 06/24/2015 ([id number]) OFFICE/OUTPATIENT VISIT EST Diagnosis: Essential (primary) hypertension[ICD10: I10] María Elena APPIAH DO [facility] CPT-4: 19695 06/21/2015 ([id number]) OFFICE/OUTPATIENT VISIT EST Diagnosis: Essential (primary) hypertension[ICD10: I10] Diagnosis: Mixed hyperlipidemia[ICD10: E78.2] Diagnosis: Acute stress reaction[ICD10: F43.0] Diagnosis: Primary insomnia[ICD10: F51.01] María Elena APPIAH [facility] CPT-4: 68124 06/16/2015 ([id number]) OFFICE/OUTPATIENT VISIT EST Diagnosis: INSOMNIA NOS[ICD9: 780.52] Diagnosis: HYPERTENSION[ICD9: 401.9] Diagnosis: Stress reaction[ICD9: 308.9] María Elena APPIAH [facility] CPT-4: 59497 06/02/2015 ([id number]) OFFICE/OUTPATIENT VISIT EST Diagnosis: HYPERTENSION[ICD9: 401.9] Diagnosis: Stress reaction[ICD9: 308.9] María Elena APPIAH [facility] CPT-4: 46073 05/20/2015 ([id number]) OFFICE/OUTPATIENT VISIT EST Diagnosis: Skin lesion[ICD9: 709.9] 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] María Elena APPIAH [facility] CPT-4: 08445 05/10/2015 ([id number]) OFFICE/OUTPATIENT VISIT EST Diagnosis: SINUSITIS, ACUTE[ICD9: 461.9] Diagnosis: ALLERGIC RHINITIS[ICD9: 477.9] Diagnosis: DERMATITIS NOS[ICD9: 692.9] María Elena REHMAN [facility] CPT-4: 00142 03/16/2015 OFFICE/OUTPATIENT VISIT EST Diagnosis: Otitis media[ICD9: 382.9] Diagnosis: SINUSITIS, ACUTE[ICD9: 461.9] June VanSpencer MARÍA ELENA APPIAH [facility] CPT-4: 87450 09/11/2014 ([id number]) OFFICE/OUTPATIENT VISIT EST Diagnosis: HYPERLIPIDEMIA NEC/NOS[ICD9: 272.4] María Elena APPIAH [facility] CPT-4: 07142 08/31/2014 ([id number]) OFFICE/OUTPATIENT VISIT EST Diagnosis: - I - HYPERTENSION[ICD9: 401.9] Diagnosis: HYPERLIPIDEMIA NEC/NOS[ICD9: 272.4] María Elena APPIAH DO [facility] CPT-4: 89758 08/27/2014 ([id number]) OFFICE/OUTPATIENT VISIT EST Diagnosis: ABDOMINAL PAIN[ICD9: 789.00] Diagnosis: DYSPEPSIA[ICD9: 536.8] Diagnosis: Thoracic back pain[ICD9: 724.1] María Elena APPIAH DO [facility] CPT-4: 42529 07/21/2014 ([id number]) OFFICE/OUTPATIENT VISIT EST Diagnosis: ALLERGIC RHINITIS[ICD9: 477.9] María Elena APPIAH DO [facility] CPT-4: 49418 07/15/2014 ([id number]) OFFICE/OUTPATIENT VISIT EST Diagnosis: EDEMA[ICD9: 782.3] Diagnosis: Chronic insomnia[ICD9: 780.52] María Elena APPIAH DO [facility] CPT-4: 94245 05/18/2014 ([id number]) OFFICE/OUTPATIENT VISIT EST Diagnosis: Thyromegaly[ICD9: 240.9] Diagnosis: - I - HYPERTENSION[ICD9: 401.9] Diagnosis: ROUTINE MEDICAL EXAM[ICD9: V70.0] Diagnosis: EDEMA[ICD9: 782.3] María Elena APPIAH DO [facility] CPT-4: 85705 05/14/2014 OFFICE/OUTPATIENT VISIT EST Diagnosis: BRONCHITIS, ACUTE[ICD9: 466.0] Diagnosis: SINUSITIS, ACUTE[ICD9: 461.9] María Elena APPIAH [facility] CPT-4: 71549 04/21/2014 OFFICE/OUTPATIENT VISIT EST Diagnosis: SINUSITIS, ACUTE[ICD9: 461.9] June Flores MARÍA ELENA APPIAH [facility] CPT-4: 14808 03/04/2014 ([id number]) OFFICE/OUTPATIENT VISIT EST Diagnosis: VACCINE FOR TDAP[ICD10: Z23] María Elena APPIAH DO [facility] CPT-4: 39465 02/27/2014 ([id number]) OFFICE/OUTPATIENT VISIT EST Diagnosis: Seborrheic keratoses, inflamed[ICD9: 702.11] Diagnosis: ACTINIC KERATOSIS[ICD9: 702.0] Diagnosis: INSOMNIA NOS[ICD9: 780.52] [facility] 97278 01/13/2014 OFFICE/OUTPATIENT VISIT EST Diagnosis: EUSTACHIAN TUBE DYSFUNCTION[ICD9: 381.81] Diagnosis: ALLERGIC RHINITIS[ICD9: 477.9] Diagnosis: Serous otitis media[ICD9: 381.4] [facility] 28605 12/24/2013 ([id number]) OFFICE/OUTPATIENT VISIT EST Diagnosis: SINUSITIS, ACUTE[ICD9: 461.9] Diagnosis: ALLERGIC RHINITIS[ICD9: 477.9] Diagnosis: EUSTACHIAN TUBE DYSFUNCTION[ICD9: 381.81] [facility]: 25035 11/12/2013 ([id number]) OFFICE/OUTPATIENT VISIT EST Diagnosis: ALLERGIC RHINITIS[ICD9: 477.9] Diagnosis: SINUSITIS, ACUTE[ICD9: 461.9] [facility]: 97999 10/21/2013 ([id number]) OFFICE/OUTPATIENT VISIT EST Diagnosis: ASYMPTOMATIC VARICOSE VEINS[ICD9: 454.9] Diagnosis: INSOMNIA NOS[ICD9: 780.52] María Elena Valdes [facility]YN [facility] CPT-[facility]: 31412 09/22/2013 OFFICE/OUTPATIENT VISIT EST Diagnosis: SINUSITIS, ACUTE[ICD9: 461.9] June Sandra [facility]A [facility]NA 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: 56528 08/04/2013 ([id number]) OFFICE/OUTPATIENT VISIT EST Diagnosis: Cervicalgia[ICD9: 723.1] Diagnosis: SPASM OF MUSCLE[ICD9: 728.85] Diagnosis: CEPHALGIA, TENSION[ICD9: 307.81] María Elena Td ELLISLINE Fabiola APPIAH DO [facility] CPT-4: 21336 07/23/2013 ([id number]) OFFICE/OUTPATIENT VISIT EST Diagnosis: EUSTACHIAN TUBE DYSFUNCTION[ICD9: 381.81] Diagnosis: ALLERGIC RHINITIS[ICD9: 477.9] María Elena ELLISLINE Lucio APPIAH DO [facility] CPT-4: 76812 06/23/2013 ([id number]) OFFICE/OUTPATIENT VISIT EST Diagnosis: ALLERGIC RHINITIS[ICD9: 477.9] Diagnosis: ACUTE SEROUS OTITIS MEDIA[ICD9: 381.01] Diagnosis: EUSTACHIAN TUBE DYSFUNCTION[ICD9: 381.81] María Elena Td ELLISLINE LucioJj TD [facility] CPT-4: 69610 05/26/2013 ([id number]) OFFICE/OUTPATIENT VISIT EST Diagnosis: HYPERTENSION[ICD9: 401.9] Diagnosis: EDEMA[ICD9: 782.3] Diagnosis: Serous otitis media[ICD9: 381.4] María Elena ELLISLINE Fabiola APPIAH [facility] CPT-4: 35242 04/16/2013 ([id number]) OFFICE/OUTPATIENT VISIT EST Diagnosis: SINUSITIS, ACUTE[ICD9: 461.9] Diagnosis: ALLERGIC RHINITIS[ICD9: 477.9] Diagnosis: EDEMA[ICD9: 782.3] Diagnosis: Thyromegaly[ICD9: 240.9] Diagnosis: MALAISE AND FATIGUE[ICD9: 780.79] María Elena Seamusabbey Lopez LucioJj TD [employer] [facility] CPT-4: 51628 03/05/2013 ([id number]) OFFICE/OUTPATIENT VISIT EST Diagnosis: PAIN, LOWER BACK[ICD9: 724.2] Diagnosis: SPASM OF MUSCLE[ICD9: 728.85] María Elena JUARES LucioJj TD [employer] [facility] CPT-4: 95455 12/23/2012 OFFICE/OUTPATIENT VISIT EST Diagnosis: Low back pain[ICD9: 724.2] Lashawn Hicks KRISTYN MUMTAZ [facility] CPT-4: 93133 12/16/2012 ([id number]) OFFICE/OUTPATIENT VISIT EST Diagnosis: PAIN, LOWER BACK[ICD9: 724.2] Diagnosis: SCIATICA[ICD9: 724.3] Diagnosis: Lumbar herniated disc[ICD9: 722.10] María Elena ELLISJaylin APPIAH DO [facility] CPT-4: 02953 12/09/2012 ([id number]) OFFICE/OUTPATIENT VISIT EST Diagnosis: PAIN, LOWER BACK[ICD9: 724.2] Diagnosis: SCIATICA[ICD9: 724.3] Diagnosis: LUMBAR DISC DISPLACEMENT[ICD9: 722.10] María Elena MARIN Fabiola APPIAH DO [facility] CPT-4: 45216 12/04/2012 OFFICE/OUTPATIENT VISIT EST Diagnosis: Pneumonia[ICD9: 486] Mary Tillman MARÍA ELENA APPIAH DO [facility] CPT-4: 42103 11/22/2012 ([id number]) OFFICE/OUTPATIENT VISIT EST Diagnosis: PNEUMONIA, ORGANISM[ICD9: 486] Diagnosis: Exacerbation of RAD (reactive airway disease)[ICD9: 493.92] María Elena Td APPIAH DO [facility] CPT-4: 90915 11/21/2012 OFFICE/OUTPATIENT VISIT EST Diagnosis: HYPERTENSION[ICD9: 401.9] Diagnosis: Cephalgia[ICD9: 784.0] Lashawn MONTEROQUELINE Fabiola APPIAH DO L CPT-4: 33822 10/29/2012 ([id number]) OFFICE/OUTPATIENT VISIT EST Diagnosis: MALAISE AND FATIGUE[ICD9: 780.79] Diagnosis: ARTHRALGIA-MULTIPLE SITES[ICD9: 719.49] María Elena REED Fabiola APPIAH DO [facility] CPT-4: 37955 10/14/2012 ([id number]) OFFICE/OUTPATIENT VISIT EST Diagnosis: URINARY FREQUENCY[ICD9: 788.41] María Elena MONTEROQUELINE Fabiola APPIAH DO [facility] CPT-4: 17228 09/27/2012 ([id number]) OFFICE/OUTPATIENT VISIT EST Diagnosis: MALAISE AND FATIGUE[ICD9: 780.79] Diagnosis: ARTHRALGIA-MULTIPLE SITES[ICD9: 719.49] María Elena APPIAH [facility] CPT-4: 62446 09/25/2012 ([id number]) OFFICE/OUTPATIENT VISIT EST Diagnosis: SINUSITIS, ACUTE[ICD9: 461.9] Diagnosis: EUSTACHIAN TUBE DYSFUNCTION[ICD9: 381.81] María Elena APPIAH [facility] CPT-4: 43879 08/29/2012 OFFICE/OUTPATIENT VISIT EST Diagnosis: ACTINIC KERATOSIS[ICD9: 702.0] Diagnosis: Inflamed seborrheic keratosis[ICD9: 702.11] Diagnosis: Skin cancer of face[ICD9: 173.31] Diagnosis: HYPERTENSION[ICD9: 401.9] María Elena [facility] CPT-4: 11427 08/12/2012 ([id number]) OFFICE/OUTPATIENT VISIT EST Diagnosis: ARTHRALGIA-MULTIPLE SITES[ICD9: 719.49] Diagnosis: GOUT[ICD9: 274.9] Diagnosis: HYPERTENSION[ICD9: 401.9] Diagnosis: Tachycardia[ICD9: 785.0] María Elena BRADFORD [facility] CPT-4: 16014 05/06/2012 ([id number]) OFFICE/OUTPATIENT VISIT EST Diagnosis: INSOMNIA NOS[ICD9: 780.52] [facility]: 78977 04/03/2012 ([id number]) OFFICE/OUTPATIENT VISIT EST Diagnosis: INSOMNIA NOS[ICD9: 780.52] Diagnosis: HYPERTENSION[ICD9: 401.9] Diagnosis: MIGRAINE NOS/NOT INTRCBL[ICD9: 346.90] [facility]: 94614 03/19/2012 ([id number]) OFFICE/OUTPATIENT VISIT EST Diagnosis: CELLULITIS[ICD9: 682.9] Diagnosis: Ankle pain[ICD9: 719.47] Diagnosis: HYPERTENSION[ICD9: 401.9] María Elena SEYMOUR [facility] CPT-4: 32284 02/20/2012 ([id number]) OFFICE/OUTPATIENT VISIT EST Diagnosis: MIGRAINE NOS/NOT INTRCBL[ICD9: 346.90] Diagnosis: Vomiting[ICD9: 787.03] María Elena Seamusabbey JUARES LucioJj CIRO Bazzi [facility] CPT-4: 81836 01/30/2012 ([id number]) OFFICE/OUTPATIENT VISIT EST Diagnosis: EDEMA[ICD9: 782.3] Diagnosis: HYPERTENSION[ICD9: 401.9] Diagnosis: ALLERGIC RHINITIS[ICD9: 477.9] Diagnosis: ARTHRALGIA-MULTIPLE SITES[ICD9: 719.49] María Elena MONTERO APARNAALCIDES LucioJj TD [facility] CPT-4: 35694 01/24/2012 ([id number]) OFFICE/OUTPATIENT VISIT EST Diagnosis: SPASM OF MUSCLE[ICD9: 728.85] Diagnosis: Thoracic back pain[ICD9: 724.1] Diagnosis: Cervical pain[ICD9: 723.1] María Elena JUARES LucioJj KRISTYN PANDYA [facility] CPT-4: 31397 01/10/2012 OFFICE/OUTPATIENT VISIT EST Diagnosis: PAIN, LOWER BACK[ICD9: 724.2] Diagnosis: LUMBAR DISC DISPLACEMENT[ICD9: 722.10] María Elena MARIN LucioJj TD [facility] CPT-4: 72546 12/11/2011 OFFICE/OUTPATIENT VISIT EST Diagnosis: MIGRAINE NOS/NOT INTRCBL[ICD9: 346.90] Diagnosis: SINUSITIS, ACUTE[ICD9: 461.9] María Elena Seamusabbey JUARES LucioJj TD [facility] CPT-4: 58713 11/09/2011 OFFICE/OUTPATIENT VISIT EST Diagnosis: MIGRAINE NOS/NOT INTRCBL[ICD9: 346.90] Diagnosis: LYMPHADENOPATHY[ICD9: 785.6] María Elena Seamusabbey JUARES LucioJj TD [facility] CPT-4: 85656 09/13/2011 OFFICE/OUTPATIENT VISIT EST Diagnosis: MALAISE AND FATIGUE[ICD9: 780.79] Diagnosis: ARTHRALGIA-MULTIPLE SITES[ICD9: 719.49] María Elena REED LucioJj TD [facility] CPT-4: 83399 08/31/2011 OFFICE/OUTPATIENT VISIT EST Diagnosis: SINUSITIS, ACUTE[ICD9: 461.9] María Elena ValdesJj ORENDER DO [facility] CPT-4: 55554 07/20/2011 OFFICE/OUTPATIENT VISIT EST Diagnosis: HYPERTENSION[ICD9: 401.9] Diagnosis: PAIN, LOWER BACK[ICD9: 724.2] Diagnosis: SPASM OF MUSCLE[ICD9: 728.85] María Elena GODOYNDER DO [facility] CPT-4: 19632 07/06/2011 OFFICE/OUTPATIENT VISIT EST Diagnosis: MIGRAINE NOS/NOT INTRCBL[ICD9: 346.90] Diagnosis: HYPERTENSION[ICD9: 401.9] María Elena GODOY NDER DO [facility] CPT-4: 93270 05/22/2011 OFFICE/OUTPATIENT VISIT EST Diagnosis: SINUSITIS, ACUTE[ICD9: 461.9] Diagnosis: MIGRAINE NOS/NOT INTRCBL[ICD9: 346.90] Diagnosis: Dehydration[ICD9: 276.51] Diagnosis: Vomiting[ICD9: 787.03] María Elena Seamusmindimaryjane MARÍA ELENA LucioJj MARIVELE R DO [facility] CPT-4: 38030 05/09/2011 ([id number]) OFFICE/OUTPATIENT VISIT EST María Elena Td ISAAC UJARED S. ORENDER DO [facility] CPT-4: 04441 02/14/2011 ([id number]) OFFICE/OUTPATIENT VISIT EST María Elena Td ISAAC UJARED S. ORENDER DO [facility] CPT-4: 89666 02/03/2011 ([id number]) OFFICE/OUTPATIENT VISIT EST María Elena Seamusmindimaryjane ISAAC UJARED S. ORENDER DO [facility] CPT-4: 23677 01/31/2011 ([id number]) OFFICE/OUTPATIENT VISIT EST María Elena Td ISAAC UELINE S. ORENDER DO [facility] CPT-4: 76764 01/25/2011 ([id number]) OFFICE/OUTPATIENT VISIT EST María Elena Seamusmindimaryjane ISAAC UJARED S. ORENDER DO [facility] CPT-4: 78887 01/18/2011 ([id number]) OFFICE/OUTPATIENT VISIT EST María Elena Seamusmindimaryjane ISAAC UJARED S. ORENDER DO [facility] CPT-4: 58791 11/29/2010 ([id number]) OFFICE/OUTPATIENT VISIT, EST María Elena MONTERO APARNAALCIDES S. ORENDER DO [facility] CPT-4: 73937 10/10/2010 ([id number]) OFFICE/OUTPATIENT VISIT, EST María Elena GODOYNDER DO [facility] CPT-4: 14987 06/07/2010 ([id number]) OFFICE/OUTPATIENT VISIT, EST María Elena GODOYNDER [facility] CPT-4: 75440 04/27/2010 ([id number]) OFFICE/OUTPATIENT VISIT, EST María Elena GODOYNDER DO [facility] CPT-4: 16567 04/05/2010 ([id number]) OFFICE/OUTPATIENT VISIT, EST María Elena GODOYNDER DO [facility] CPT-4: 21872 03/09/2010 ([id number]) OFFICE/OUTPATIENT VISIT, EST María Elena GODOYNDER [facility] CPT-4: 50551 03/03/2010 ([id number]) OFFICE/OUTPATIENT VISIT, EST María Elena ORTAER [facility] CPT-4: 55032 01/17/2010 ([id number]) PREV VISIT, EST, AGE 40-64 María Elena APPIAH DO [facility] CPT-4: 20990 12/27/2009 Plan of Care Planned Activity Notes [...] ICD-10 : E11.65 10/07/2019 Appointment: Kathleen Zuniga [address] [place], [place] [id number] OFFICE SURGERY 10/07/2019 Visit Diagnosis Plan: [...] 09/30/2019 Appointment: María Elena Appiah WPtel: [address] [place], [place] [phone] [place] CHECK UP 09/30/2019 Patient Education: Premarin- Optimize[employer] Coupon [id number] https://www.[employer].com/samplemd/resources/getResource/61/99796e69-n527-2vwn-y3 Completed 09/30/2019 Appointment: María Elena Appiah WPtel: [address] [place], [place] [phone] [place] LAB 09/29/2019 Appointment: María Elena Appiah WPtel: [address] [place], [place] [phone] [place] Won't have the new insurance till [...] 05/28/2019 Appointment: María Elena Appiah WPtel: [address] [place], [place] [phone] [place] FOLLOW UP 05/28/2019 Appointment: María Elena Appiah WPtel: [address] [place], [place] [phone] [place] BP CHECK 05/19/2019 Visit Diagnosis Plan: [...] Z79.890 01/22/2019 Appointment: María Elena Appiah WPtel: [address] [place], [place] [id number] [place] FOLLOW UP 01/22/2019 Patient Education: estradiol- Opt[employer] Coupon [id number] https://www.[employer]/samplemd/resources/getResource/61/867i485c-3om9-3h37-2a Completed 01/22/2019 Appointment: María Elena Appiahtel: [address] [place], [place] [phone] [place] CANCELED 01/20/2019 Appointment: María Elena Appiah WPtel: [address] [place] [address] [place] LM NO SHOW 01/06/2019 Appointment: María Elena Appiah WPtel: [address] [place] [address] [place] CANCELED 10/17/2018 Appointment: María Elena Appiah WPtel: [address] [place] [address] US BP CHECK 10/09/2018 Visit Diagnosis Plan: [...] 09/30/2018 Appointment: María Elena Appiah WPtel: [address] [place] [address] [place] FOLLOW UP 09/30/2018 Visit Diagnosis Plan: [...] : F51.01 08/27/2018 Appointment: María Elena Appiahtel: [address] [place] [address] ACUTE ILLNESS 08/27/2018 Appointment: María Elena Appiah WPtel: [address] [place] [address] [place] Patient stated she went out to [...] prn. Tyle... 08/09/2018 Appointment: María Elena Appiahtel: [address] [place] [address] ACUTE ILLNESS 08/09/2018 Appointment: María Elena Appiahtel: [address] [place] [address] NO SHOW 08/08/2018 Visit Diagnosis Plan: Anxiety [...] : B35.4 07/22/2018 Appointment: María Elena Appiahtel: [address] [place] [address] ACUTE ILLNESS 07/22/2018 Appointment: María Elena Appiah WPtel: [address] [place] [address] [place] INJECTION 06/19/2018 Patient Education: Patient Medication [...] : L03.031 06/17/2018 Appointment: Kathleen Zuniga [address] [place] [address] ACUTE ILLNESS 06/17/2018 Patient Education: Patient Medication [...] ICD-10 : B02.9 05/16/2018 Appointment: Kathleen Zuniga [address] [place] [address] ACUTE ILLNESS 05/16/2018 Patient Education: Patient Medication [...] ICD-10 : L03.115 03/20/2018 Appointment: Kathleen Zuniga [address] [place], [place] [address] FOLLOW UP 03/20/2018 Patient Education: Patient Medication [...] : L03.115 03/18/2018 Appointment: Kathleen Zuniga [address] [phone] FOLLOW UP 03/18/2018 Patient Education: Patient Medication [...] : L03.115 03/15/2018 Appointment: Kathleen Zuniga [address] [facility] ACUTE ILLNESS 03/15/2018 Patient Education: Patient [...] : J01.90 02/11/2018 Appointment: Kathleen Zuniga [address] [facility] ACUTE ILLNESS 02/11/2018 Patient Education: Patient Medication Summary Completed 02/11/2018 Appointment: María Elena Appiah WPtel: [phone] [facility] [place] INJECTION 02/01/2018 Patient Education: Patient Medication [...] ICD-10 : M51.16 01/30/2018 Appointment: Kathleen Zuniga [address] [place], [place] [id number] ACUTE ILLNESS 01/30/2018 Patient Education: [...] 12/18/2017 Appointment: María Elena Appiah WPtel: [phone] Annual Well Visit 12/18/2017 Patient Education: Patient Medication Summary Completed 12/18/2017 Care Plan: Referral Order SNOMED-CT : [id number] Pending 12/18/2017 Appointment: María Elena Appiah WPtel: [facility] [address] [place] INJECTION 12/10/2017 Patient Education: Patient Medication [...] ICD-10 : L03.031 12/07/2017 Appointment: Kathleen Zuniga [address] [place] [address] ACUTE ILLNESS 12/07/2017 Patient Education: Patient Medication [...] ICD-10 : J01.00 10/08/2017 Appointment: Kathleen Zuniga [address] [place] [address] ACUTE ILLNESS 10/08/2017 Patient Education: Patient Medication Summary Completed 10/08/2017 Appointment: María Elena Appiah WPtel: [phone] [address] [place] INJECTION 09/21/2017 Patient Education: Patient Medication [...] ICD-10 : R06.83 09/20/2017 Appointment: Kathleen Zuniga [address] [place], [place] [id number] ACUTE ILLNESS 09/20/2017 Patient Education: Patient Medication [...] : L60.0 08/29/2017 Appointment: Kathleen Zuniga [address] [place], [place] [phone] OFFICE SURGERY 08/29/2017 Patient Education: Patient Medication Summary Completed 08/29/2017 Visit Diagnosis Plan: Actinic keratosis Discussion: Cr yotherapy as above ICD-9 : 702.0 ICD-10 : L57.0 08/01/2017 Appointment: María Elena Appiah WPtel: [address] [place], [place] [phone] OFFICE SURGERY 08/01/2017 Patient Education: Patient Medication Summary Completed 08/01/2017 Appointment: aMría Elena Appiah WPtel: [address] [place], [place] [phone] PATIENT THOUGHT APPOINTMENT WAS TOMORROW 07/26/17 CALLED 15 MINUTES BEFORE APPT TO SAY SHE DIDN'T HAVE ANYONE TO COVER HER BUSINESS AND WOULD NOT MAKE IT NO SHOW 07/25/2017 Visit Diagnosis Plan: Cellulitis of left toe Discussio n: Clindamycin and notify if worsening or persistis ICD-9 : 681.10 ICD-10 : L03.032 07/19/2017 Appointment: María Elena Appiah WPtel: [address] [place], [place] [phone] MEDICATION REVIEW 07/19/2017 Patient Education: Patient Medication Summary Completed 07/19/2017 Appointment: María Elena Appiah WPtel: [address] [place], [place] [phone] [place] CANCELED 07/04/2017 Visit Diagnosis Plan: Generalized hyperhidrosis Discus ian: CBC, CMP, TSH, free T4 ordered to assess. will review labs. ICD-9 : 780.8 ICD-10 : R61 06/27/2017 Visit Diagnosis Plan: Chronic sinusitis, unspecified D iscussion: Referral sent to dr. albarado in [place] per patient request. patient has been treated multiple times for sinus infections with no recovery. patient was seen by dr sanchez in the past with no interventions. patient has deviated septum which may be affecting her sinuses. 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, including hip Discussion: Shave removal of above lesio n--sent to pathology ICD-9 : 216.7 ICD-10 : D23.72 01/24/2017 Appointment: María Elena Appiah WPtel: [address] [place], [place] [phone] 01/23 confirmed ~sl OFFICE SURGERY 01/24/2017 Patient Education: Patient Medication Summary Completed 01/24/2017 Appointment: Loan Sánchez [address] [place], [place] [id number] 01/09 rescheduled~sl RESCHEDULED 01/15/2017 Visit [...] 12/13/2016 Appointment: [facility]ía [facility] [phone] [id number] [place] 12/12 confirmed ~ MEDICATION REVIEW 12/13/2016 Patient Education: Patient Medication Summary Completed 12/13/2016 Appointment: María Elena [facility] [phone] [id number] [place] rescheduled for 12/13/16 at 11am RESCHEDULED 0 12/06/2016 Appointment: María Elena Appiah [facility]el[facility] [phone] [id number] [place] CANCELED 11/23/2016 Patient Education: Patient [...] Appointment: María Elena Appiah [facility]el[facility] [phone] [id number] [place] 10/31 lm `sl 11/01 lm`sl MEDICATION REVIEW 017 Patient Education: Patient Medication Summary Completed 11/01/2016 Referral: Canelo Overton WPtel: [phone] [id number] [place] Referral Initiated 10/30/2016 Visit Diagnosis Plan: [...] : V72.31 ICD-10 : Z01.419 10/17/2016 Appointment: Maraí Elena Appiah WPtel: [address] [place] [address] 10/16 confirmed ~sl PAP 10/17/2016 Patient Education: Patient Medication Summary Completed 10/17/2016 Care Plan: MAMMOGRAM SCREENING [facility] : [phone] Pending 10/17/2016 Visit Diagnosis Plan: Other seasonal allergic rhinitis Discussion: Decadron/Garamycin Nasal [place] Mix Too soon for steroid Retry zyrtec 10mg daily ICD-9 : 477.9 ICD-10 : J30.2 10/10/2016 Appointment: María Elena Appiah WPtel: [address] [place], [place] [phone] [place] FOLLOW UP 10/10/2016 Patient Education: Patient Medication Summary Completed 10/10/2016 Appointment: María Elena Appiah WPtel: [address] [place], [place] [phone] 10/02 reschedule `sl RESCHEDULED 10/02/2016 Visit Plan: See surgery for removal of n ew left arm lesion and right foot lesion Lyrica to use next month for left arm paresthesias Continue current meds Discussed sunscreen/sunblock combo 09/19/2016 Appointment: María Elena Appiah WPtel: [address] [place], [place] [phone] 09/18 confirmed ~sl FOLLOW UP 09/19/2016 Patient Education: Patient Medication Summary Completed 09/19/2016 Patient Education: Patient Medication Summary Completed 09/18/2016 Care Plan: MAMMOGRAM BOTH BREASTS LOINC : 51861-6 Pending 09/18/2016 Visit Plan: Discussed that needs [...] sinuses 08/24/2016 Appointment: María Elena Appiah WPtel: [address] [place] [address] ACUTE ILLNESS 08/24/2016 Patient Education: Patient Medication Summary Completed 08/24/2016 Patient Education: Patient Medication Summary Completed 08/23/2016 Care Plan: MAMMOGRAM SCREENING LOINC : 2 6347-5 Pending 08/23/2016 Visit Plan: Finish doxycycline Add Breo 100/25 1 p BID for 2 weeks If not improving within next 2 days will get CXR 08/16/2016 Appointment: María Elena Appiah WPtel: [address] [place] [address] ACUTE ILLNESS 08/16/2016 Patient Education: Patient Medication Summary Completed 08/16/2016 Visit Plan: Supportive care. Rest, Fluid s, Tylenol/Motrin prn fever or bodyaches. Notify if worsening symptoms. Doxycyline and Prednisone 08/10/2016 Appointment: María Elena Appiah WPtel: [address] [place] [address] 08/09 lm`sl....confirmed-sp FOLLOW UP 09/2015 Patient Education: Patient Medication Summary Completed 08/10/2016 Visit Plan: Saline nasal flushes prn. Ty lenol/Motrin prn headache. Notify if persists/symptoms worsening. Dexamethasone 8mg IM today May use coricedan and mucinex 08/02/2016 Appointment: María Elena Appiah WPtel: [address] [place], [place] [id number] ACUTE ILLNESS 08/02/2016 Patient Education: Patient Medication Summary Completed 08/02/2016 Visit Plan: Cryotherapy as above and lef t forearm lesion removal as above with 5-0 punch biopsy and sent to path Return in 10 days for suture removal 08/01/2016 Appointment: María Elena Appiah WPtel: [address] [place] [address] 07/31 confirmed`~ OFFICE SURGERY 08/01/2016 Patient Education: Patient Medication Summary Completed 08/01/2016 Visit Plan: Stop clindamycin Check CBC, CMP, ESR now/STAT 07/27/2016 Appointment: María Elena Appiah WPtel: [address] [place] [address] ACUTE ILLNESS 07/27/2016 Patient Education: Patient Medication Summary Completed 07/27/2016 Visit Plan: Update lab and check ABIs to start with Will likely need cardiology evaluation to rule out PVD Clindamycin for 10 days Daily yogurt or probiotic Will return for removal of left arm lesions 07/20/2016 Appointment: María Elena Appiah WPtel: [address] [place] [address] ACUTE ILLNESS 07/20/2016 Patient Education: Patient Medication Summary Completed 07/20/2016 Patient Education: Patient Medication Summary Completed 07/20/2016 Care Plan: MAMMOGRAM BOTH BREASTS LOINC : 96097-6 Pending 07/20/2016 Care Plan: US EXAM CHEST LOINC : 13437-2 Pending 07/20/2016 Visit Plan: Wound culture collected from left great toe Appearance is somewhat staph like Rx as above Wound cleanser and skin care reviewed May need to add oral antibiotic if sores do not heal or continue to reoccur 07/06/2016 Appointment: Loan Sánchez [address] [place] [address] ACUTE ILLNESS 07/06/2016 Patient Education: Patient Medication Summary Completed 07/06/2016 Appointment: María Elena Appiah WPtel: [address] [place] [address] US INJECTION 05/25/2016 Patient Education: Patient Medication Summary Completed 05/25/2016 Visit Plan: Saline nasal flushes prn. Ty lenol/Motrin prn headache. Notify if persists/symptoms worsening. Dexamethasone and Rocephin given 04/26/2016 Appointment: María Elena Appiah WPtel: [address] [place] [address] ACUTE ILLNESS 04/26/2016 Patient Education: Patient Medication Summary Completed 04/26/2016 Visit Plan: Check CBC, CMP, TSH, FreeT4, HbA1C, estradiol, lipids in AM 03/02/2016 Appointment: María Elena Appiah WPtel: [address] [place] [address] 03/01 lm~sl ACUTE ILLNESS 03/02/2016 Patient Education: Patient Medication Summary Completed 03/02/2016 Visit Plan: Exam is nearly normal Needs to be taking daily antihistamine Would prefer to use oral steroids instead of shot but patient insist that oral steroids cause horrible headaches for her Will given kenalog IM instead 02/09/2016 Appointment: Loan Sánchez [address] [place] [address] ACUTE ILLNESS 02/09/2016 Patient Education: Patient Medication Summary Completed 02/09/2016 Visit Plan: Culture urine Macrobid DC xa nax Trial of Ativan 1mg q HS 01/24/2016 Appointment: María Elena Appiah WPtel: [address] [place] [address] ACUTE ILLNESS 01/24/2016 Patient Education: Patient Medication Summary Completed 01/24/2016 Visit Plan: No steroid or rocephin injec tion warranted Can have oral prednisone Continue current home regimen Needs to follow up with Dr Sanchez if problems persist 12/23/2015 Appointment: Loan Sánchez [address] [place] [address] ACUTE ILLNESS 12/23/2015 Patient Education: Patient Medication Summary Completed 12/23/2015 Visit Plan: Saline nasal flushes prn. Ty lenol/Motrin prn headache. Notify if persists/symptoms worsening. Kenalog 40mg IM today 12/08/2015 Appointment: María Elena Appiah WPtel: [address] [place], [place] [id number] 12/06 confirmed~sl ACUTE ILLNESS 12/08/2015 Patient Education: Patient Medication Summary Completed 12/08/2015 Appointment: María Elena Appiah WPtel: [address] [place], [place] [phone] ACUTE ILLNESS 11/18/2015 Patient Education: Patient Medication Summary Completed 10/11/2015 Appointment: María Elena Appiah WPtel: [address] [place], [place] [phone] [place] INJECTION 10/07/2015 Patient Education: Patient Medication Summary Completed 10/07/2015 Visit Plan: Check renal arterial doppler s and ECHO Change amlodopine to lotrel 5/20mg q HS Will need stress test as well Check CMP, uric acid, ESR 10/06/2015 Appointment: María Elena Appiah WPtel: [address] [place], [place] [phone] ACUTE ILLNESS 10/06/2015 Patient Education: Patient Medication Summary Completed 10/06/2015 Patient Education: [facility] - Saving [employer] - Amlodipine Besylate - 18-64 - Dynamic Portal ID Completed 10/06/2015 Appointment: María Elena Appiah WPtel: [address] [place], [place] [phone] FOLLOW UP 09/22/2015 Visit Plan: Cephalexin 500 mg PO bid Mery ly topical Mupirocin to lesions on left lateral neck and face Follow-up in one week. Sooner if symptoms worsen 09/14/2015 Appointment: June Flores WPtel: [address] [place], [place] [id number] ACUTE ILLNESS 09/14/2015 Patient Education: Patient Medication Summary Completed 09/14/2015 Visit Plan: Change bystolic to bedtime d osing and amlodopine to morning dosing Cryotherapy as above to AKs 09/07/2015 Appointment: María Elena Appiah WPtel: [address] [place], [place] [phone] 09/06 appointment made and confirmed ~sl FOLLOW UP 09/07/2015 Patient Education: Patient Medication Summary Completed 09/07/2015 Visit Plan: Increase bystolic back to 20 mg daily but will split and take 10mg in AM and 10mg in PM Stress Reducers 08/18/2015 Appointment: María Elena Appiah WPtel: [address] [place], [place] [phone] 08/17/15 appt confirmed cn ACUTE ILLNESS 08/18 Patient Education: Patient Medication Summary Completed 08/18/2015 Appointment: María Elena Appiah WPtel: [address] [place], [place] [id number] BP CHECK 07/07/2015 Patient Education: Patient Medication Summary Completed 07/07/2015 Appointment: María Elena Appiah WPtel: [address] [place] [address] BP CHECK 06/24/2015 Patient Education: Patient Medication Summary Completed 06/24/2015 Appointment: María Elena Appiah WPtel: [address] [place] [address] BP CHECK 06/21/2015 Patient Education: Patient Medication Summary Completed 06/21/2015 Visit Plan: Lab discussed Continue pipere nt meds and lifestyle modification Recheck lab in 6mos 06/16/2015 Appointment: María Elena Apipah WPtel: [address] [place] [address] 06/15 confirmed FOLLOW UP 06/16/2015 Patient Education: Patient Medication Summary Completed 06/16/2015 Patient Education: Patient Medication Summary Completed 06/15/2015 Visit Plan: Increase cymbalta to 60mg q HS Keep clonidine at current dose Recheck 2weeks Change xanax to klonopin 06/02/2015 Appointment: María Elena Appiah WPtel: [address] [place], [place] [phone] 06/02 lm FOLLOW UP 06/02/2015 Patient Education: Patient Medication Summary Completed 06/02/2015 Appointment: María Elena Appiah WPtel: [address] [place] [address] ACUTE ILLNESS 05/24/2015 Visit Plan: Increase clonidine to 0.2mg q HS Add cymbalta 30mg q HS Recheck 2weeks Stress Reducers Check fasting lab Discussed sleep study 05/20/2015 Appointment: María Elena Appiah WPtel: [address] [place] [address] ACUTE ILLNESS 05/20/2015 Patient Education: Patient Medication Summary Completed 05/20/2015 Patient Education: [facility] - [employer]aving [employer] - Cymbalta - 18-64 - Dynamic Portal ID Completed 05/20/2015 Appointment: María Elena Appiah WPtel: [address] [place] [address] BP CHECK 05/19/2015 Patient Education: Patient Medication Summary Completed 05/19/2015 Visit Plan: Topical Bactroban alternatin g with topical betamethasone Recheck 2weeks 05/10/2015 Appointment: María Elena Appiah WPtel: [address] [place] [address] 05/07 cn...05/07 appt confirmed OFFICE SURGER Y 05/10/2015 Patient Education: Patient Medication Summary Completed 05/10/2015 Referral: Patrick Chandler WPtel: [address] Referral Initiated 05/04/2015 Visit Plan: Saline nasal flushes prn. Ty lenol/Motrin prn headache. Notify if persists/symptoms worsening. Depomedrol 40mg IM today 03/16/2015 Appointment: María Elena Appiah WPtel: [address] [place] [address] ACUTE ILLNESS 03/16/2015 Patient Education: Patient Medication Summary Completed 03/16/2015 Appointment: María Elena Appiah WPtel: [address] [place] [address] ER Follow UP 03/09/2015 Visit Plan: Cryotherapy to lesions as ab ove 10/27/2014 Appointment: María Elena Appiah WPtel: [address] [place] [address] OFFICE SURGERY 10/27/2014 Patient Education: Patient Medication Summary Completed 10/27/2014 Appointment: June Flores WPtel: [address] [place] [address] ACUTE ILLNESS 09/11/2014 Patient Education: Patient Medication Summary Completed 09/11/2014 Visit Plan: Lab discussed Lipitor 10mg d aily Coenzyme Q-10 400mg daily Vitamin D3 5000u daily Recheck lipids with LFTs in 3mos then fwup 08/31/2014 Appointment: María Elena Appiah WPtel: [address] [place] [address] 08/28 voicemail FOLLOW UP 08/31/2014 Patient Education: Patient Medication Summary Completed 08/31/2014 Appointment: María Elena Appiah WPtel: [address] [place] [address] US LAB 08/27/2014 Appointment: María Elena Appiah WPtel: [address] [place], [place] [phone] [place] LAB 08/27/2014 Patient Education: Patient Medication Summary Completed 08/27/2014 Appointment: María Elena Appiah WPtel: [address] [place] [address] ACUTE ILLNESS 07/23/2014 Appointment: María Elena Appiah WPtel: [address] [place] [address] ACUTE ILLNESS 07/21/2014 Patient Education: Patient Medication Summary Completed 07/21/2014 Visit Plan: Kenalog 40mg IM today Contin ue narendra and singulair Add Flonase 07/15/2014 Appointment: María Elena Appiah WPtel: [address] [place], [place] [id number] ACUTE ILLNESS 07/15/2014 Appointment: María Elena Appiah WPtel: [address] [place], [place] [phone] ACUTE ILLNESS 07/15/2014 Patient Education: Patient Medication Summary Completed 07/15/2014 Visit Plan: Will do metolazone 2.5mg prn with 6 potassium and see if causes as severe cramping Trial of of seroquel XR 50mg q PM with evening meal and let us know how works 05/18/2014 Appointment: María Elena Appiah WPtel: [address] [place], [place] [phone] 05/15 left message FOLLOW UP 05/18/2014 Patient Education: Patient Medication Summary Completed 05/18/2014 Appointment: María Elena Appiah WPtel: [address] [place] [phone] LAB 05/14/2014 Patient Education: Patient Medication Summary Completed 05/14/2014 Appointment: María Elena Appiah WPtel: [address] [place] [phone] [place] INJECTION 04/22/2014 Visit Plan: Nimco today a nd finish abx given from urgent care 04/21/2014 Appointment: María Elena Appiah WPtel: [address] [place], [place] [id number] [place] INJECTION 04/21/2014 Patient Education: Patient Medication Summary Completed 04/21/2014 Appointment: June Flores WPtel: [address] [place], [place] [phone] ACUTE ILLNESS 03/04/2014 Patient Education: Patient Medication Summary Completed 03/04/2014 Appointment: María Elena Appiah WPtel: [address] [place] [phone] [place] INJECTION 02/27/2014 Patient Education: Patient Medication Summary Completed 02/27/2014 Visit Plan: Cryotherapy as above to all lesions Patient wants to try no meds for insomnia for a while and see how goes 01/13/2014 Appointment: María Elena Appiah WPtel: [address] [place] [address] OFFICE SURGERY 01/13/2014 Patient Education: Patient Medication Summary Completed 01/13/2014 Visit Plan: Stop Melatonin Stop Soma Tri al of trazadone 75mg q HS See ENT for possible tubes as has had chronic ETD and serous otitis media with numerous steroids 12/24/2013 Appointment: María Elena Appiah WPtel: [address] [place] [address] ACUTE ILLNESS 12/24/2013 Patient Education: Patient Medication Summary Completed 12/24/2013 Visit Plan: Saline nasal flushes prn. Ty lenol/Motrin prn headache. Notify if persists/symptoms worsening. 11/12/2013 Appointment: María Elena pApiah WPtel: [address] [place] [address] ACUTE ILLNESS 11/12/2013 Patient Education: Patient Medication Summary Completed 11/12/2013 Appointment: María Elena Appiah WPtel: [address] [place] [address] ACUTE ILLNESS 10/21/2013 Patient Education: Patient Medication Summary Completed 10/21/2013 Visit Plan: Sleep hygiene and sleep rout ine Melatonin 10mg q HS Support stockings and observe 09/22/2013 Appointment: María Elena Appiah WPtel: [address] [place] [address] ACUTE ILLNESS 09/22/2013 Patient Education: Patient Medication Summary Completed 09/22/2013 Appointment: June Flores WPtel: [address] [place] [address] ACUTE ILLNESS 08/27/2013 Patient Education: Patient Medication Summary Completed 08/27/2013 Visit Plan: Proceed with CT scan of head /neck Proceed with occipital nerve injections Butrans 20mcg patch weekly until can get into see Dr. Mcdonough for injections 08/04/2013 Appointment: María Elena Appiahtejaylin: [address] [place] [address] FOLLOW UP 08/04/2013 Patient Education: Patient Medication Summary Completed 08/04/2013 Visit Plan: OMT done Daily neck stretche s, moist heat Increase Celebrex to 200mg BID Add flexeril 07/23/2013 Appointment: María Elena Appiah WPtel: [address] [place] [address] 07/22 voicemail FOLLOW UP 07/23/2013 Patient Education: Patient Medication Summary Completed 07/23/2013 Appointment: María Elena Appiah WPtel: [address] [place] [address] ACUTE ILLNESS 06/23/2013 Patient Education: Patient Medication Summary Completed 06/23/2013 Appointment: María Elena Appiah WPtel: [address] [place] [address] ACUTE ILLNESS 05/26/2013 Patient Education: Patient Medication Summary Completed 05/26/2013 Visit Plan: Decrease clonidine to 0.1mg TID If BP remains stable consider decreasing amlodopine Prednisone for 5 days BP check in 1mo 04/16/2013 Appointment: María Elena Appiah WPtel: [address] [place] [address] 04/14 pt called and confirmed appt FOLLOW UP 04/16/2013 Patient Education: Patient Medication Summary Completed 04/16/2013 Appointment: María Elena Appiah WPtel: [address] [place] [address] ACUTE ILLNESS 03/05/2013 Patient Education: Patient Medication Summary Completed 03/05/2013 Visit Plan: Pt has MARIA ELENA on with Dr. Sharonda Matthews patch Refill Hydrocodone early tomorrow 12/23/2012 Appointment: María Elena Appiah WPtel: [address] [place] [address] FOLLOW UP 12/23/2012 Patient Education: Patient Medication Summary Completed 12/23/2012 Appointment: Lashawn Eckert WPtel: [address] [place] [address] ACUTE ILLNESS 12/16/2012 Patient Education: Patient Medication Summary Completed 12/16/2012 Visit Plan: Proceed with updated MRI of LS spine Continue gabapentin and add soma and diclofenac Will likely need to go for another epidural 12/09/2012 Appointment: María Elena Appiah WPtel: [address] [place] [address] ACUTE ILLNESS 12/09/2012 Patient Education: Patient Medication Summary Completed 12/09/2012 Visit Plan: Injection as above Finish me drol dose pack Chiropracter this afternoon 12/04/2012 Appointment: María Elena Appiah WPtel: [address] [place] [address] ACUTE ILLNESS 12/04/2012 Patient Education: Patient Medication Summary Completed 12/04/2012 Appointment: Mary Tillman WPtel: [address] [place] [address] FOLLOW UP 11/22/2012 Patient Education: Patient Medication Summary Completed 11/22/2012 Appointment: María Elena Appiah WPtel: [address] [place] [address] ACUTE ILLNESS 11/21/2012 Patient Education: Patient Medication Summary Completed 11/21/2012 Appointment: María Elena Appiah WPtel: [address] [place] [address] BP CHECK 11/07/2012 Patient Education: Patient Medication [...] BP re-check. 10/29/2012 Appointment: Lashawn Eckert WPtel: [address] [place], [place] [id number] ACUTE ILLNESS 10/29/2012 Patient Education: Patient Medication Summary Completed 10/29/2012 Appointment: María Elena Appiah WPtel: [address] [place], [place] [phone] ACUTE ILLNESS 10/14/2012 Patient Education: Patient Medication Summary Completed 10/14/2012 Appointment: María Elena Appiah WPtel: [address] [place], [place] [phone] UA 09/27/2012 Patient Education: Patient Medication Summary Completed 09/27/2012 Appointment: María Elena Appiah WPtel: [address] [place], [place] [id number] ACUTE ILLNESS 09/25/2012 Patient Education: Patient Medication Summary Completed 09/25/2012 Appointment: María Elena Appiah WPtel: [address] [place] [address] BP CHECK 09/24/2012 Appointment: María Elena Appiah WPtel: [address] [place] [address] ACUTE ILLNESS 08/29/2012 Patient Education: Patient Medication Summary Completed 08/29/2012 Visit Plan: Cryotherapy as above See Karlos m for right ear lesion--probable MOHs procedure Increase amlodopine to 10mg daily 08/12/2012 Appointment: María Elena Appiah WPtel: [address] [place], [place] [phone] OFFICE SURGERY 08/12/2012 Patient Education: Patient Medication Summary Completed 08/12/2012 Appointment: María Elena Appiah WPtel: [address] [place], [place] [phone] 05/03 vm on pt phone...pt called on 04/11 3 pt called wanting in had no one cancel so could not get her in for an appt sooner than 05/06. ACUTE ILLNESS 05/06/2012 Patient Education: Patient Medication Summary Completed 05/06/2012 Visit Plan: Pt wants to hold on any furt her sleep medications 04/03/2012 Appointment: María Elena Appiahtel: [address] [place] [address] FOLLOW UP 04/03/2012 Patient Education: Patient Medication Summary Completed 04/03/2012 Appointment: María Elena Appiahtel: [address] [place] [address] FOLLOW UP 03/19/2012 Patient Education: Patient Medication Summary Completed 03/19/2012 Appointment: María Elena Appiahtel: [address] [place] [address] BP CHECK 02/22/2012 Patient Education: Patient Medication Summary Completed 02/22/2012 Appointment: María Elena Appiahtel: [address] [place] [address] BP CHECK 02/21/2012 Patient Education: Patient Medication Summary Completed 02/21/2012 Visit Plan: Doxycycline and bactroban fo r foot Supportive care on ankles and knees Add norvasc for BP 02/20/2012 Appointment: María Elena Appiahtel: [address] [place] [address] ER Follow UP 02/20/2012 Patient Education: Patient Medication Summary Completed 02/20/2012 Appointment: María Elena Appiahtel: [address] [place] [address] ACUTE ILLNESS 01/30/2012 Patient Education: Patient Medication Summary Completed 01/30/2012 Appointment: María Elena Appiahtel: [address] [place] [address] ACUTE ILLNESS 01/24/2012 Patient Education: Patient Medication Summary Completed 01/24/2012 Visit Plan: Daily back stretches, moist heat, Biofreeze prn OMT done 01/10/2012 Appointment: María Elena Appiah WPtel: [address] [place] [address] ACUTE ILLNESS 01/10/2012 Patient Education: Patient Medication Summary Completed 01/10/2012 Appointment: María Elena Appiahtel: [address] [place] [address] FOLLOW UP 12/11/2011 Patient Education: Patient Medication Summary Completed 12/11/2011 Appointment: María Elena Appiah WPtel: [address] [place] [address] ACUTE ILLNESS 11/09/2011 Patient Education: Patient Medication Summary Completed 11/09/2011 Appointment: María Elena Appiahtel: [address] [place] [address] ACUTE ILLNESS 09/13/2011 Patient Education: Patient Medication Summary Completed 09/13/2011 Visit Plan: Check CBC, TSH, Free T4, CMP , ESR, Vit D, B12 now Start Prednisone today 08/31/2011 Appointment: María Elena Appiah WPtel: [address] [place] [address] ACUTE ILLNESS 08/31/2011 Patient Education: Patient Medication Summary Completed 08/31/2011 Appointment: María Elena Appiahtel: [address] [place] [address] US INJECTION 07/20/2011 Patient Education: Patient Medication Summary Completed 07/20/2011 Visit Plan: Continue current meds Monite r BP Cont stretches from PT 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 07/06/2011 Appointment: María Elena Appiahtel: [address] [place] [address] FOLLOW UP 07/06/2011 Patient Education: Patient Medication Summary Completed 07/06/2011 Appointment: María Elena Appiahtel: [address] [place] [address] US BP CHECK 06/06/2011 Patient Education: Patient Medication Summary Completed 06/06/2011 Visit Plan: Add Bystolic at 2.5mg QAM Ad d Robaxin 750mg 2 po q HS BP check in 2wks 05/22/2011 Appointment: María Elena Appiah WPtel: [address] [place], [place] [phone] FOLLOW UP 05/22/2011 Patient Education: Patient Medication Summary Completed 05/22/2011 Appointment: María Elena Appiah WPtel: [address] [place] [address] ER Follow UP 05/09/2011 Patient Education: Patient Medication Summary Completed 05/09/2011 Appointment: María Elena Appiah WPtel: [address] [place] [address] FOLLOW UP 02/22/2011 Visit Plan: Rx written for Hydrocodone 1 0/325mg #240 See Ortho 02/14/2011 Appointment: María Elena Appiah WPtel: [address] [place] [address] OMT 02/14/2011 Patient Education: Patient Medication Summary [...] work. 02/03/2011 Appointment: Lashawn Eckert WPtel: [address] [place], [place] [phone] ACUTE ILLNESS 02/03/2011 Patient Education: Patient Medication Summary Completed 02/03/2011 Visit Plan: OMT done Cont daily stretche s 01/31/2011 Appointment: María Elena Appiah WPtel: [address] [place] [address] ACUTE ILLNESS 01/31/2011 Patient Education: Patient Medication Summary Completed 01/31/2011 Visit Plan: Continue pain meds OMT done Proceed with PT No work this summer01/25/2011 Appointment: María Elena Appiah WPtel: [address] [place] [address] ACUTE ILLNESS 01/25/2011 Patient Education: Patient Medication Summary Completed 01/25/2011 Visit Plan: Start PT Long discussion abo ut getting pain meds from only us and can only have max of 4grams of tylenol per day Change to Hydrocodone 10/325mg 1- 2 po TID prn pain--#180 called to [place] 01/18/2011 Appointment: María Elena Appiah WPtel: [address] [place] [address] FOLLOW UP 01/18/2011 Patient Education: Patient Medication Summary Completed 01/18/2011 Visit Plan: Daily back stretches, moist heat, Biofreeze prn 11/29/2010 Appointment: María Elena Appiah WPtel: [address] [place] [address] ER Follow UP 11/29/2010 Patient Education: Patient Medication Summary Completed 11/29/2010 Visit Plan: Saline nasal flushes prn. Ty lenol/Motrin prn headache. Notify if persists/symptoms worsening. Finish augmentin Add Medrol Dose Pack 10/10/2010 Appointment: María Elena Appiah WPtel: [address] [place] [address] ACUTE ILLNESS 10/10/2010 Patient Education: Patient Medication Summary Completed 10/10/2010 Visit Plan: Cryotherapy x3 to multiple l esions on both forearms 07/19/2010 Appointment: María Elena Appiah WPtel: [address] [place] [address] OFFICE SURGERY 07/19/2010 Patient Education: Patient Medication Summary Completed 07/19/2010 Appointment: María Elena Appiah WPtel: [address] [place] [address] BP CHECK 07/06/2010 Patient Education: Patient Medication Summary Completed 07/06/2010 Appointment: María Elena Appiah WPtel: [address] [place] [address] BP CHECK 06/30/2010 Patient Education: Patient Medication Summary Completed 06/30/2010 Appointment: María Elena Appiah WPtel: [address] [place] [address] BP CHECK 06/20/2010 Patient Education: Patient Medication Summary Completed 06/20/2010 Visit Plan: Change Diovan to Exforge 160 /5mg QD OMT done to thoracics BP check in 2wks 06/07/2010 Appointment: María Elena Appiah WPtel: [address] [place] [address] FOLLOW UP 06/07/2010 Patient Education: Patient Medication Summary Completed 06/07/2010 Appointment: María Elena Appiahtel: [address] [place] [address] BP CHECK 06/03/2010 Patient Education: Patient Medication Summary Completed 06/03/2010 Appointment: María Elena Appiahtel: [address] [place] [address] BP CHECK 06/01/2010 Patient Education: Patient Medication Summary Completed 06/01/2010 Visit Plan: Irritated skin tags to left neck x2 excised at base with scissors and base cauterized 05/30/2010 Appointment: María Elena Appiah WPtel: [address] [place] [address] OFFICE SURGERY 05/30/2010 Patient Education: Patient Medication Summary Completed 05/30/2010 Visit Plan: Saline nasal flushes prn. Ty lenol/Motrin prn headache. Notify if persists/symptoms worsening. Restart Nasonex Has allergy testing set for May 15 04/27/2010 Appointment: María Elena Appiahtel: [address] [place] [address] ACUTE ILLNESS 04/27/2010 Patient Education: Patient Medication Summary Completed 04/27/2010 Visit Plan: Saline nasal flushes prn. Ty lenol/Motrin prn headache. Notify if persists/symptoms worsening. Omnaris BID plus injections 04/05/2010 Appointment: María Elena Appiah WPtel: [address] [place] [address] ACUTE ILLNESS 04/05/2010 Patient Education: Patient Medication Summary Completed 04/05/2010 Visit Plan: Saline nasal flushes prn. Ty lenol/Motrin prn headache. Notify if persists/symptoms worsening. 03/09/2010 Appointment: María Elena Appiahtel: [address] [place] [address] ACUTE ILLNESS 03/09/2010 Patient Education: Patient Medication Summary Completed 03/09/2010 Visit Plan: Cont Clonidine as is Cont Pr emarin Fwup with surgery as scheduled 03/03/2010 Appointment: María Elena Appiahtel: [address] [place] [address] FOLLOW UP 03/03/2010 Patient Education: Patient Medication Summary Completed 03/03/2010 Visit Plan: Check Pelvic US now Chelsey Sal C vs Hysterectomy 01/17/2010 Appointment: María Elena Appiahtel: [address] [place] [address] ACUTE ILLNESS 01/17/2010 Patient Education: Patient Medication Summary Completed 01/17/2010 Visit Plan: Check fasting lab and schedu le Mammogram 2gm Na Diet Trial of Ambien 10mg qhs Fwup pending lab results 12/27/2009 Appointment: María Elena Appiahtel: [address] [place] [address] ESTABLISHED PATIENT 12/27/2009 Patient Education: Patient Medication Summary Completed 12/27/2009 Referral: Canelo Overton WPtel: [address] [id number] [place] Referral Initiated Referral: Philipp Flores WPtel: [address] [id number] [place] Referral Appointment Requested Instructions Comment . [...]
--- OUTSIDE RECORDS SUMMARY | 2020-03-13 05:59 | XMS REPORT | CCD ---
Author Author Gale Appiah D.O. Organization [facility] Address [address] [place] [id number] Phone Care Team Providers Care Applications Support Lead Name Role Phone María Elena Appiah D.O., PP Unavailable CCM Unavailable Summary Purpose Interface Exchange Insurance Providers Payer name Policy type / Coverage type Covered libertarian ID Effective Begin Date Effective End Date [facility] Commercial Insurance [id number] Unknown Family History Family History data not found Social History Social History Element Codes Description Effective Dates Tobacco history SNOMED CT: [id number] Never smoker 05/22/2011 Allergies, Adverse Reactions, Alerts [...] Instructions duloxetine 60 mg capsule,delayed release RxNorm: 434273 1 Capsu le(s) Oral QD 10/17/2019 04/13/2020 Active celecoxib 200 mg capsule RxNorm: 428451 1 Capsule(s) Or al two times a day as needed for pain 10/17/2019 01/14/2020 Active lisinopril 20 mg tablet RxNorm: 313785 1 Tablet(s) Oral QD 10/17/19 20 04/13/2020 Active gabapentin 300 mg capsule RxNorm: 894030 1 Capsule(s) O ral every night at bedtime 10/17/2019 01/15/2020 Active Singulair 10 mg tablet RxNorm: 179546 1 Tablet(s) Oral QD 10/17/2019 04/14/2020 Active Klor-Con 8 mEq tablet,extended release RxNorm: 677832 1 Tablet(s) Oral two times a day 10/17/2019 11/16/2019 Active metoprolol tartrate 100 mg tablet RxNorm: 016488 1 Tabl et(s) Oral two times a day 10/17/2019 04/13/2020 Active Januvia 100 mg tablet RxNorm: 740989 1 Tablet(s) Oral QD 10/17/2019 No Stop Date Active Lipitor 10 mg tablet RxNorm: 134388 1 Tablet(s) Oral QD 10/17/2019 Active Steglatro 15 mg tablet RxNorm: 6172224 1 Tablet(s) Oral QD 10/17/19 20 No Stop Date Active Glyxambi 25 mg-5 mg tablet RxNorm: 5191266 1 Tablet(s) Oral QD 01/202010/16/2019 Inactive Patient will bring in copay discount card as well Glyxambi 25 mg-5 mg tablet RxNorm: 1275575 1 Tablet(s) Oral QD 01/202010/14/2019 Inactive Patient will bring in copay discount card as well Keflex 500 mg capsule RxNorm: 191959 1 Capsule(s) Oral two time s a day 10/07/2019 10/14/2019 Inactive Premarin 1.25 mg tablet RxNorm: 170639 1 Tablet(s) Oral QD 09/30/1906/25/2020 Active hydrocodone 10 mg-acetaminophen 325 mg tablet RxNorm: 898836 1-2 Tablet(s) Oral three times a day as needed for pain 09/30/2019 09/30/2019 Inactive baclofen 10 mg tablet RxNorm: 505635 TAKE ONE TABLET BY MOUTH THREE TIMES A DAY NEEDED 09/19/2019 No Stop Date Active gabapentin 300 mg capsule RxNorm: 918605 TAKE ONE CAPSU LE BY MOUTH EVERY NIGHT AT BEDTIME 09/19/2019 10/16/2019 Inactive Klor-Con 8 mEq tablet,extended release RxNorm: 798374 T FARRUKH ONE TABLET BY MOUTH TWICE A DAY 1 Tablet(s) Oral two times a day 09/19/2019 10/16/2019 [place] ctive hydrocodone 10 mg-acetaminophen 325 mg tablet RxNorm: 035676 1-2 Tablet(s) Oral three times a day as needed for pain 09/19/2019 09/29/2019 Inactive triamterene 75 mg-hydrochlorothiazide 50 mg tablet RxNorm: 3 40255 TAKE ONE TABLET BY MOUTH DAILY 09/11/2019 No Stop Date Active allopurinol 300 mg tablet RxNorm: 543876 TAKE ONE TABLET BY LOPEZ TH DAILY 09/11/2019 No Stop Date Active clonidine HCl 0.1 mg tablet RxNorm: 257070 TAKE ONE TAB LET BY MOUTH FOUR TIMES A DAY 09/11/2019 No Stop Date Active duloxetine 60 mg capsule,delayed release RxNorm: 967429 TAKE ONE CAPSULE BY MOUTH DAILY 09/11/2019 10/16/2019 Inactive Lipitor 10 mg tablet RxNorm: 887922 TAKE ONE TABLET BY MOUTH AT BEDTIME 09/11/2019 10/16/2019 Inactive lisinopril 20 mg tablet RxNorm: 393820 TAKE ONE TABLET BY MOUTH DAILY .... THIS REPLACE 10MG TABLETS 09/11/2019 10/16/2019 Inactive celecoxib 200 mg capsule RxNorm: 049766 TAKE ONE CAPSUL E BY MOUTH TWICE A DAY NEEDED FOR PAIN 09/11/2019 10/16/2019 Inactive doxepin 25 mg capsule RxNorm: 3487314 1 Capsule(s) Oral every night at bedtime as needed for sleep 08/21/2019 11/18/2019 Active hydrocodone 10 mg-acetaminophen 325 mg tablet RxNorm: 835241 1-2 Tablet(s) PO TID 08/12/2019 09/29/2019 Inactive as needed for pa in - Previous quantity #240, will start dosing for #180 in April 2011 per Doctor Td. Medrol (Dustin) 4 mg tablets in a dose pack RxNorm: 263507 Tablet(s) Oral As Directed 07/21/2019 09/29/2019 Inactive Premarin 1.25 mg tablet RxNorm: 407421 1 Tablet(s) Oral QD 07/02/20 19 09/29/2019 Inactive hydrocodone 10 mg-acetaminophen 325 mg tablet RxNorm: 916295 1-2 Tablet(s) PO TID 07/01/2019 08/11/2019 Inactive as needed for pa in - Previous quantity #240, will start dosing for #180 in April 2011 per Doctor Td. gabapentin 300 mg capsule RxNorm: 215891 1 Capsule(s) PO QHS 201809/18/2019 Inactive celecoxib 200 mg capsule RxNorm: 677432 1 Capsule(s) Or al two times a day as needed for pain 06/27/2019 06/27/2019 Inactive furosemide 40 mg tablet RxNorm: 735633 TAKE ONE TABLET BY MOUTH EVERY MORNING NEEDED FOR EDEMA . TAKE WITH POTASSIUM 06/24/2019 No Stop Date Active doxepin 25 mg capsule RxNorm: 7899923 TAKE ONE CAPSULE B Y MOUTH EVERY NIGHT AT BEDTIME NEEDED FOR SLEEP 06/24/2019 08/20/2019 Inactive Singulair 10 mg tablet RxNorm: 076927 TAKE ONE TABLET BY MOUTH JOSÉ Y 06/24/2019 10/16/2019 Inactive lisinopril 20 mg tablet RxNorm: 193955 TAKE ONE TABLET BY MOUTH DAILY .... THIS REPLACE 10MG TABLETS 06/24/2019 09/10/2019 Inactive nystatin-triamcinolone 100,000 unit/g-0.1 % topical cream Rx Norm: 9648153 1 Application Topical two times a day 06/12/2019 06/19/2019 Inactive apply BID for 1 week nystatin-triamcinolone 100,000 unit/g-0.1 % topical cream Rx Norm: 5974671 1 Application Topical two times a day 06/12/2019 06/11/2019 Inactive apply BID for 1 week hydrocodone 10 mg-acetaminophen 325 mg tablet RxNorm: 384927 1-2 Tablet(s) PO QID as needed for pain MUST LAST 30 DAYS 05/28/2019 06/26/2019 Inactiv e (Response to an electronic controlled substance refill request - RxReferenceNumber: [id number]) baclofen 20 mg tablet RxNorm: 163098 1 Tablet(s) PO TID as needed for muscle spasm 05/19/2019 05/27/2019 Inactive gabapentin 300 mg capsule RxNorm: 037146 1 Capsule(s) PO QHS 201805/27/2019 Inactive lisinopril 20 mg tablet RxNorm: 080773 1 Tablet(s) PO Q D TAKE ONE TABLET BY MOUTH DAILY, REPLACES 10 MG DOSE 05/19/2019 06/23/2019 Inactive doxepin 25 mg capsule RxNorm: 2154030 TAKE ONE CAPSULE B Y MOUTH EVERY NIGHT AT BEDTIME NEEDED FOR SLEEP 05/16/2019 06/14/2019 Inactive lisinopril 20 mg tablet RxNorm: 673270 TAKE ONE TABLET BY MOUTH DAILY, REPLACES 10 MG DOSE 05/16/2019 05/18/2019 Inactive Singulair 10 mg tablet RxNorm: 410801 TAKE ONE TABLET BY MOUTH JOSÉ Y 05/16/2019 06/14/2019 Inactive gabapentin 300 mg capsule RxNorm: 658908 1 Capsule(s) PO QHS 201805/04/2019 Inactive estropipate 1.5 mg tablet RxNorm: 813210 1 Tablet(s) PO QD 05/05/20 19 05/27/2019 Inactive estropipate 1.5 mg tablet RxNorm: 877100 1 Tablet(s) PO QD 08/05/04/2019 Inactive gabapentin 300 mg capsule RxNorm: 164843 1 Capsule(s) PO QHS 201805/18/2019 Inactive hydrocodone 10 mg-acetaminophen 325 mg tablet RxNorm: 851514 1-2 Tablet(s) PO QID as needed for pain MUST LAST 30 DAYS 04/25/2019 05/24/2019 Inactiv e (Response to an electronic controlled substance refill request - RxReferenceNumber: [id number]) cyclobenzaprine 10 mg tablet RxNorm: 320647 TAKE ONE TA BLET BY MOUTH THREE TIMES A DAY NEEDED FOR MUSCLE SPASMS 04/24/2019 05/18/2019 Inactive metoprolol tartrate 100 mg tablet RxNorm: 960980 TAKE O NE TABLET BY MOUTH TWICE A DAY 04/24/2019 10/16/2019 Inactive Lyrica 75 mg capsule RxNorm: 211481 1 Capsule(s) PO QHS 03/25/2019 Inactive duloxetine 60 mg capsule,delayed release RxNorm: 796276 TAKE ONE CAPSULE BY MOUTH DAILY 03/21/2019 05/19/2019 Inactive triamterene 75 mg-hydrochlorothiazide 50 mg tablet RxNorm: 3 27104 TAKE ONE TABLET BY MOUTH DAILY 03/21/2019 05/19/2019 Inactive Klor-Con 8 mEq tablet,extended release RxNorm: 713061 T FARRUKH ONE TABLET BY MOUTH TWICE A DAY 03/21/2019 09/18/2019 Inactive Lipitor 10 mg tablet RxNorm: 505191 TAKE ONE TABLET BY MOUTH AT BEDTIME 03/21/2019 09/10/2019 Inactive clonidine HCl 0.1 mg tablet RxNorm: 633506 TAKE ONE TAB LET BY MOUTH FOUR TIMES A DAY 03/21/2019 05/19/2019 Inactive allopurinol 300 mg tablet RxNorm: 789838 TAKE ONE TABLET BY LOPEZ TH DAILY 03/21/2019 05/19/2019 Inactive hydrocodone 10 mg-acetaminophen 325 mg tablet RxNorm: 490703 1-2 Tablet(s) PO QID as needed for pain MUST LAST 30 DAYS 02/28/2019 03/29/2019 Inactiv e (Response to an electronic controlled substance refill request - RxReferenceNumber: [id number]) furosemide 40 mg tablet RxNorm: 129630 TAKE ONE TABLET BY MOUTH EVERY MORNING NEEDED FOR EDEMA . TAKE WITH POTASSIUM 02/21/2019 03/22/2019 Inactive cyclobenzaprine 10 mg tablet RxNorm: 159397 TAKE ONE TA BLET BY MOUTH THREE TIMES A DAY NEEDED FOR MUSCLE SPASMS 02/21/2019 04/21/2019 Inactive lisinopril 20 mg tablet RxNorm: 526758 TAKE ONE TABLET BY MOUTH DAILY, REPLACES 10 MG DOSE 02/21/2019 05/15/2019 Inactive doxepin 25 mg capsule RxNorm: 7280666 TAKE ONE CAPSULE B Y MOUTH EVERY NIGHT AT BEDTIME NEEDED FOR SLEEP 02/21/2019 05/15/2019 Inactive nystatin 100,000 unit/gram topical cream RxNorm: 592704 APPLY TO AFFECTED AREA(S) TWO TIMES A DAY 02/21/2019 03/22/2019 Inactive estradiol 1 mg tablet RxNorm: 477758 2 Tablet(s) PO QD replaces premarin 01/22/2019 05/04/2019 Inactive lisinopril 20 mg tablet RxNorm: 852019 TAKE ONE TABLET BY MOUTH DAILY, REPLACES 10 MG DOSE 01/20/2019 02/18/2019 Inactive cyclobenzaprine 10 mg tablet RxNorm: 616248 TAKE ONE TA BLET BY MOUTH THREE TIMES A DAY NEEDED FOR MUSCLE SPASMS 01/20/2019 02/18/2019 Inactive metoprolol tartrate 100 mg tablet RxNorm: 319688 TAKE O NE TABLET BY MOUTH TWICE A DAY 01/20/2019 02/18/2019 Inactive cyclobenzaprine 10 mg tablet RxNorm: 410003 TAKE ONE TA BLET BY MOUTH THREE TIMES A DAY NEEDED FOR MUSCLE SPASMS 12/19/2018 01/17/2019 Inactive lisinopril 20 mg tablet RxNorm: 785512 TAKE ONE TABLET BY MOUTH DAILY, REPLACES 10 MG DOSE 12/19/2018 01/17/2019 Inactive duloxetine 60 mg capsule,delayed release RxNorm: 377778 TAKE ONE CAPSULE BY MOUTH DAILY 12/19/2018 01/17/2019 Inactive Lipitor 10 mg tablet RxNorm: 326886 TAKE ONE TABLET BY MOUTH AT BEDTIME 12/19/2018 01/17/2019 Inactive cyclobenzaprine 10 mg tablet RxNorm: 606863 1 Tablet(s) PO TID as needed for muscle spasm 11/19/2018 12/18/2018 Inactive Singulair 10 mg tablet RxNorm: 940037 1 Tablet(s) PO QD 11/19/2018 Inactive lisinopril 20 mg tablet RxNorm: 949648 TAKE ONE TABLET BY MOUTH DAILY, REPLACES 10 MG DOSE 11/15/2018 12/18/2018 Inactive hydrocodone 10 mg-acetaminophen 325 mg tablet RxNorm: 789342 1-2 Tablet(s) PO QID as needed for pain MUST LAST 30 DAYS 11/13/2018 12/12/2018 Inactiv e (Response to an electronic controlled substance refill request - RxReferenceNumber: [id number]) nystatin 100,000 unit/gram topical cream RxNorm: 204512 APPLY TO AFFECTED AREA(S) TWO TIMES A DAY 10/23/2018 11/06/2018 Inactive lisinopril 20 mg tablet RxNorm: 350471 1 Tablet(s) PO QD replac es 10mg dose 10/18/2018 11/14/2018 Inactive hydrocodone 10 mg-acetaminophen 325 mg tablet RxNorm: 185415 1-2 Tablet(s) QID as needed for pain MUST LAST 30 DAYS 10/08/2018 11/06/2018 Inactive (Response to an electronic controlled substance refill request - RxReferenceNumber: [id number]) lisinopril 10 mg tablet RxNorm: 542456 1 Tablet(s) PO QD 10/03/2018 0 01/21/2019 Inactive Celebrex 200 mg capsule RxNorm: 864317 TAKE ONE CAPSULE BY MOUT H TWICE A DAY 09/30/2018 05/04/2019 Inactive cyclobenzaprine 10 mg tablet RxNorm: 148544 TAKE ONE TA BLET BY MOUTH THREE TIMES A DAY NEEDED FOR MUSCLE SPASMS 09/30/2018 11/18/2018 Inactive doxepin 25 mg capsule RxNorm: 7850799 TAKE ONE CAPSULE B Y MOUTH EVERY NIGHT AT BEDTIME NEEDED 09/05/2018 10/16/2018 Inactive omeprazole 40 mg capsule,delayed release RxNorm: 630803 TAKE ONE CAPSULE BY MOUTH DAILY 09/05/2018 01/21/2019 Inactive furosemide 40 mg tablet RxNorm: 135392 TAKE ONE TABLET BY MOUTH EVERY MORNING NEEDED FOR EDEMA . TAKE WITH POTASSIUM 09/05/2018 11/03/2018 Inactive phentermine 37.5 mg tablet RxNorm: 488754 1 Tablet(s) PO QAM 201701/21/2019 Inactive doxepin 25 mg capsule RxNorm: 4302825 1 Capsule(s) PO QH S as needed for sleep TAKE ONE CAPSULE BY MOUTH EVERY NIGHT AT BEDTIME NEEDED 08/27/2018 09/04/2018 Inactive Keflex 500 mg capsule RxNorm: 753817 1 Capsule(s) PO TID 08/09/2018 1 10/19/2017 Inactive Diflucan 100 mg tablet RxNorm: 718581 1 Tablet(s) PO QD 08/09/2018 Inactive Premarin 1.25 mg tablet RxNorm: 543758 2 Tablet(s) PO QD 08/09/2018 0 05/04/2019 Inactive Zofran ODT 4 mg disintegrating tablet RxNorm: 954188 1 Tablet(s) PO Q4H as needed for nausea 08/09/2018 01/21/2019 Inactive metoprolol tartrate 100 mg tablet RxNorm: 423308 TAKE O NE TABLET BY MOUTH TWICE A DAY 2018 10/04/2018 Inactive doxepin 25 mg capsule RxNorm: 9458181 TAKE ONE CAPSULE B Y MOUTH EVERY NIGHT AT BEDTIME NEEDED 2018 08/26/2018 Inactive cyclobenzaprine 10 mg tablet RxNorm: 837999 TAKE ONE TA BLET BY MOUTH THREE TIMES A DAY NEEDED FOR MUSCLE SPASMS 2018 09/29/2018 Inactive hydrocodone 10 mg-acetaminophen 325 mg tablet RxNorm: 565077 1-2 Tablet(s) QID as needed for pain MUST LAST 30 DAYS 07/29/2018 08/27/2018 Inactive (Response to an electronic controlled substance refill request - RxReferenceNumber: [id number]) nystatin 100,000 unit/gram topical powder RxNorm: 631439 Applic ation TOP BID 07/22/2018 08/04/2018 Inactive doxepin 25 mg capsule RxNorm: 7188507 1 Capsule(s) PO QHS as needed 07/22/2018 08/05/2018 Inactive triamterene 75 mg-hydrochlorothiazide 50 mg tablet RxNorm: 3 75933 TAKE ONE TABLET BY MOUTH DAILY 07/05/2018 10/02/2018 Inactive duloxetine 60 mg capsule,delayed release RxNorm: 777053 TAKE ONE CAPSULE BY MOUTH DAILY 07/05/2018 09/02/2018 Inactive Klor-Con 8 mEq tablet,extended release RxNorm: 029319 T FARRUKH ONE TABLET BY MOUTH TWICE A DAY 07/05/2018 10/02/2018 Inactive Lipitor 10 mg tablet RxNorm: 944500 TAKE ONE TABLET BY MOUTH AT BEDTIME 07/05/2018 09/02/2018 Inactive allopurinol 300 mg tablet RxNorm: 526638 TAKE ONE TABLET BY LOPEZ TH DAILY 07/05/2018 10/02/2018 Inactive clonidine HCl 0.1 mg tablet RxNorm: 911085 TAKE ONE TAB LET BY MOUTH FOUR TIMES A DAY 07/05/2018 10/02/2018 Inactive hydrocodone 10 mg-acetaminophen 325 mg tablet RxNorm: 439162 1-2 Tablet(s) QID as needed for pain MUST LAST 30 DAYS 06/28/2018 07/27/2018 Inactive (Response to an electronic controlled substance refill request - RxReferenceNumber: [id number]) MediHoney (calcium alginate-honey) 4" X 5" bandage RxNorm: 1 Application TOP QD 06/17/2018 06/26/2018 Inactive honey-hydrocolloid dressing 4" X 5" RxNorm: 1 Application TOP QD 06/17/2018 07/16/2018 Inactive furosemide 40 mg tablet RxNorm: 776809 TAKE ONE TABLET BY MOUTH EVERY MORNING NEEDED FOR EDEMA . TAKE WITH POTASSIUM 06/10/2018 07/09/2018 Inactive This is a refill request. hydrocodone 10 mg-acetaminophen 325 mg tablet RxNorm: 784788 1-2 Tablet(s) QID as needed for pain MUST LAST 30 DAYS 05/30/2018 06/27/2018 Inactive (Response to an electronic controlled substance refill request - RxReferenceNumber: [id number]) acyclovir 800 mg tablet RxNorm: 778359 1 Tablet(s) PO 5x day 201705/22/2018 Inactive Premarin 1.25 mg tablet RxNorm: 508723 1-2 Tablet(s) PO QD 05/15/20 18 07/13/2018 Inactive cyclobenzaprine 10 mg tablet RxNorm: 134987 1 Tablet(s) PO TID as needed for muscle spasm 05/09/2018 05/08/2018 Inactive Medrol (Dustin) 4 mg tablets in a dose pack RxNorm: 879021 Tablet(s) PO As Directed 05/02/2018 06/16/2018 Inactive hydrocodone 10 mg-acetaminophen 325 mg tablet RxNorm: 097406 1-2 Tablet(s) QID as needed for pain MUST LAST 30 DAYS 04/30/2018 05/29/2018 Inactive (Response to an electronic controlled substance refill request - RxReferenceNumber: [id number]) duloxetine 60 mg capsule,delayed release RxNorm: 544080 TAKE ONE CAPSULE BY MOUTH DAILY 04/16/2018 05/15/2018 Inactive Celebrex 200 mg capsule RxNorm: 231534 TAKE ONE CAPSULE BY MOUT H TWICE A DAY 04/16/2018 06/14/2018 Inactive Singulair 10 mg tablet RxNorm: 043966 TAKE ONE TABLET BY MOUTH JOSÉ Y 04/16/2018 11/19/2018 Inactive Lipitor 10 mg tablet RxNorm: 671661 TAKE ONE TABLET BY MOUTH AT BEDTIME 04/16/2018 05/15/2018 Inactive hydrocodone 10 mg-acetaminophen 325 mg tablet RxNorm: 577280 1-2 Tablet(s) QID as needed for pain MUST LAST 30 DAYS 03/29/2018 04/27/2018 Inactive (Response to an electronic controlled substance refill request - RxReferenceNumber: [id number]) cyclobenzaprine 10 mg tablet RxNorm: 283054 1 Tablet(s) PO TID as needed for muscle spasm 03/18/2018 05/09/2018 Inactive omeprazole 40 mg capsule,delayed release RxNorm: 520143 1 Capsu le(s) PO QD 02/26/2018 08/24/2018 Inactive hydrocodone 10 mg-acetaminophen 325 mg tablet RxNorm: 698337 1-2 Tablet(s) QID as needed for pain MUST LAST 30 DAYS 02/26/2018 03/27/2018 Inactive (Response to an electronic controlled substance refill request - RxReferenceNumber: [id number]) metoprolol tartrate 100 mg tablet RxNorm: 119758 1 Tablet(s) PO BID 02/18/2018 08/05/2018 Inactive Lyrica 75 mg capsule RxNorm: 334823 1 Capsule(s) PO QHS 01/30/2018 Inactive phentermine 37.5 mg tablet RxNorm: 870384 1 Tablet(s) PO QAM 201706/16/2018 Inactive hydrocodone 10 mg-acetaminophen 325 mg tablet RxNorm: 833647 1-2 Tablet(s) QID as needed for pain MUST LAST 30 DAYS 01/29/2018 02/25/2018 Inactive (Response to an electronic controlled substance refill request - RxReferenceNumber: [id number]) Klor-Con 8 mEq tablet,extended release RxNorm: 507695 1 Tablet( s) PO BID 01/14/2018 07/04/2018 Inactive allopurinol 300 mg tablet RxNorm: 538289 1 Tablet(s) PO QD 01/15/2007/04/2018 Inactive Lipitor 10 mg tablet RxNorm: 914238 1 Tablet(s) PO QHS 01/14/201812/2017 Inactive triamterene 75 mg-hydrochlorothiazide 50 mg tablet RxNorm: 3 55559 1 Tablet(s) PO QD 01/14/2018 07/04/2018 Inactive hydrocodone 10 mg-acetaminophen 325 mg tablet RxNorm: 214535 1-2 Tablet(s) QID as needed for pain MUST LAST 30 DAYS 12/27/2017 01/25/2018 Inactive (Response to an electronic controlled substance refill request - RxReferenceNumber: [id number]) Onglyza 5 mg tablet RxNorm: 014015 1 Tablet(s) PO QD 12/18/201701/29 Inactive metformin 500 mg tablet RxNorm: 836778 1 Tablet(s) PO BID 12/11/2017 12/10/2017 Inactive metformin 500 mg tablet RxNorm: 478145 1 Tablet(s) PO BID 12/11/2017 12/17/2017 Inactive furosemide 40 mg tablet RxNorm: 070870 1 Tablet(s) PO Q AM prn edema--take with potassium 12/11/2017 06/08/2018 Inactive cyclobenzaprine 10 mg tablet RxNorm: 178733 1 Tablet(s) PO TID as needed for muscle spasm 12/11/2017 03/18/2018 Inactive hydrocodone 10 mg-acetaminophen 325 mg tablet RxNorm: 478292 1-2 Tablet(s) QID as needed for pain MUST LAST 30 DAYS 10/23/2017 11/21/2017 Inactive (Response to an electronic controlled substance refill request - RxReferenceNumber: [id number]) Lipitor 10 mg tablet RxNorm: 725065 1 Tablet(s) PO QHS 10/16/201703/2018 Inactive cyclobenzaprine 10 mg tablet RxNorm: 433509 1 Tablet(s) PO TID as needed for muscle spasm 10/09/2017 12/10/2017 Inactive hydroxyzine HCl 25 mg tablet RxNorm: 023643 1 Tablet(s) PO BID as needed for anxiety 09/20/2017 01/29/2018 Inactive Effexor XR 75 mg capsule,extended release RxNorm: 657757 1 Caps ule(s) PO QD 09/20/2017 01/29/2018 Inactive metoprolol tartrate 100 mg tablet RxNorm: 689884 1 Tablet(s) PO BID 08/20/2017 02/18/2018 Inactive baclofen 20 mg tablet RxNorm: 372778 1 Tablet(s) PO TID as needed for muscle spasm 08/20/2017 01/21/2019 Inactive clonidine HCl 0.1 mg tablet RxNorm: 903472 1 Tablet(s) PO QID 08/2005/16/2018 Inactive Seroquel 25 mg tablet RxNorm: 407935 1 Tablet(s) PO QHS 08/17/2017 Inactive Seroquel 25 mg tablet RxNorm: 015393 1 Tablet(s) PO QHS 08/17/2017 Inactive Diflucan 100 mg tablet RxNorm: 881521 TAKE ONE TABLET BY MOUTH JOSÉ Y 07/25/2017 08/07/2017 Inactive hydrocodone 10 mg-acetaminophen 325 mg tablet RxNorm: 678637 1-2 Tablet(s) QID as needed for pain MUST LAST 30 DAYS 07/19/2017 08/17/2017 Inactive (Response to an electronic controlled substance refill request - RxReferenceNumber: [id number]) clindamycin 300 mg capsule RxNorm: 106875 1 Capsule(s) PO TID 07/1907/28/2017 Inactive clotrimazole-betamethasone 1 %-0.05 % topical cream RxNorm: 713585 Application TOP BID to elbow rash 07/19/2017 06/16/2018 Inactive Singulair 10 mg tablet RxNorm: 788050 Tablet(s) TAKE ONE TABLET BY MOUTH DAILY 07/18/2017 04/13/2018 Inactive triamterene 75 mg-hydrochlorothiazide 50 mg tablet RxNorm: 3 22404 1 Tablet(s) PO QD 07/18/2017 01/14/2018 Inactive Celebrex 200 mg capsule RxNorm: 468292 Capsule(s) TAKE ONE CAPSULE BY MOUTH TWICE A DAY 07/18/2017 10/15/2017 Inactive hydrocodone 10 mg-acetaminophen 325 mg tablet RxNorm: 023611 1-2 Tablet(s) QID as needed for pain MUST LAST 30 DAYS 06/19/2017 07/18/2017 Inactive (Response to an electronic controlled substance refill request - RxReferenceNumber: [id number]) hydrocodone 10 mg-acetaminophen 325 mg tablet RxNorm: 929686 1-2 Tablet(s) QID as needed for pain MUST LAST 30 DAYS 06/19/2017 06/18/2017 Inactive (Response to an electronic controlled substance refill request - RxReferenceNumber: [id number]) baclofen 20 mg tablet RxNorm: 501844 1 Tablet(s) PO TID as needed for muscle spasm 06/18/2017 08/20/2017 Inactive Medrol (Dustin) 4 mg tablets in a dose pack RxNorm: 773323 Tablet(s) PO As Directed 06/05/2017 07/18/2017 Inactive omeprazole 40 mg capsule,delayed release RxNorm: 825486 1 Capsu le(s) PO QD 04/20/2017 10/16/2017 Inactive Premarin 1.25 mg tablet RxNorm: 574910 1-2 Tablet(s) PO QD 04/11/20 17 05/15/2018 Inactive duloxetine 60 mg capsule,delayed release RxNorm: 980320 1 Capsu le(s) PO QD 04/11/2017 09/19/2017 Inactive furosemide 40 mg tablet RxNorm: 280886 1 Tablet(s) PO Q AM prn edema--take with potassium 04/11/2017 12/11/2017 Inactive Klor-Con 8 mEq tablet,extended release RxNorm: 784042 1 Tablet( s) PO BID 04/11/2017 01/14/2018 Inactive Lipitor 10 mg tablet RxNorm: 936375 1 Tablet(s) PO QHS 04/11/201702/2018 Inactive amlodipine 5 mg-benazepril 20 mg capsule RxNorm: 467281 1 Capsu le(s) PO QD 04/11/2017 01/29/2018 Inactive allopurinol 300 mg tablet RxNorm: 708003 1 Tablet(s) PO QD 04/11/20 17 01/14/2018 Inactive clonidine HCl 0.1 mg tablet RxNorm: 278507 1 Tablet(s) PO QID 04/0508/19/2017 Inactive baclofen 20 mg tablet RxNorm: 605613 1 Tablet(s) PO TID as needed for muscle spasm 04/02/2017 06/18/2017 Inactive Premarin 1.25 mg tablet RxNorm: 479777 1-2 Tablet(s) PO QD 03/20/20 17 04/10/2017 Inactive hydrocodone 10 mg-acetaminophen 325 mg tablet RxNorm: 533185 1-2 Tablet(s) QID as needed for pain MUST LAST 30 DAYS 03/14/2017 01/21/2019 Inactive (Response to an electronic controlled substance refill request - RxReferenceNumber: [id number]) metoprolol tartrate 100 mg tablet RxNorm: 015538 1 Tablet(s) PO BID 02/12/2017 08/20/2017 Inactive hydrocodone 10 mg-acetaminophen 325 mg tablet RxNorm: 590619 1-2 Tablet(s) QID as needed for pain MUST LAST 30 DAYS 02/08/2017 03/09/2017 Inactive (Response to an electronic controlled substance refill request - RxReferenceNumber: [id number]) metoprolol tartrate 100 mg tablet RxNorm: 373931 TAKE O NE TABLET BY MOUTH TWICE A DAY 01/11/2017 02/12/2017 Inactive metoprolol tartrate 100 mg tablet RxNorm: 307851 1 Tablet(s) PO BID 12/18/2016 12/17/2016 Inactive metoprolol tartrate 100 mg tablet RxNorm: 859272 1 Tablet(s) PO BID 12/18/2016 01/10/2017 Inactive furosemide 40 mg tablet RxNorm: 718342 1 Tablet(s) PO Q AM prn edema--take with potassium 12/13/2016 02/10/2017 Inactive amitriptyline 100 mg tablet RxNorm: 605813 1 Tablet(s) PO QHS 11/2812/12/2016 Inactive baclofen 20 mg tablet RxNorm: 611690 1 Tablet(s) PO TID as needed for muscle spasm 11/14/2016 04/01/2017 Inactive triamterene 75 mg-hydrochlorothiazide 50 mg tablet RxNorm: 3 30223 1 Tablet(s) PO QD 11/14/2016 11/13/2016 Inactive metolazone 2.5 mg tablet RxNorm: 677267 TAKE ONE TABLET BY MOUTH DAILY NEEDED FOR EDEMA 11/14/2016 12/12/2016 Inactive triamterene 75 mg-hydrochlorothiazide 50 mg tablet RxNorm: 3 41758 1 Tablet(s) PO QD 11/14/2016 07/18/2017 Inactive amitriptyline 50 mg tablet RxNorm: 801257 TAKE ONE TABL ET BY MOUTH AT BEDTIME NEEDED FOR SLEEP 11/14/2016 11/27/2016 Inactive Cymbalta 60 mg capsule,delayed release RxNorm: 703051 1 Capsule (s) PO QHS 11/14/2016 12/12/2016 Inactive clonidine HCl 0.1 mg tablet RxNorm: 579855 1 Tablet(s) PO QID 11/1304/04/2017 Inactive amitriptyline 50 mg tablet RxNorm: 027350 1 Tablet(s) P O QHS as needed for sleep 11/01/2016 11/27/2016 Inactive duloxetine 60 mg capsule,delayed release RxNorm: 002450 TAKE ONE CAPSULE BY MOUTH DAILY 10/20/2016 01/17/2017 Inactive allopurinol 300 mg tablet RxNorm: 372344 TAKE ONE TABLET BY LOPEZ TH DAILY 10/20/2016 01/16/2017 Inactive Lyrica 75 mg capsule RxNorm: 047868 TAKE ONE CAPSULE BY MOUTH EVERY NIGHT AT BEDTIME 10/20/2016 12/10/2016 Inactive Klor-Con 8 mEq tablet,extended release RxNorm: 189834 T FARRUKH ONE TABLET BY MOUTH TWICE A DAY 10/20/2016 01/17/2017 Inactive Celebrex 200 mg capsule RxNorm: 903399 TAKE ONE CAPSULE BY MOUT H TWICE A DAY 10/20/201607/18/2017 Inactive Bystolic 10 mg tablet RxNorm: 968671 TAKE ONE TABLET BY MOUTH EVERY NIGHT AT BEDTIME 10/20/2016 12/17/2016 Inactive amlodipine 5 mg-benazepril 20 mg capsule RxNorm: 525585 TAKE ONE CAPSULE BY MOUTH EVERY NIGHT AT BEDTIME -- TO REPLACE AMLODOPINE 10/20/20162016 Inactive Lipitor 10 mg tablet RxNorm: 436451 TAKE ONE TABLET BY MOUTH EVERY NIGHT AT BEDTIME 10/20/2016 01/17/2017 Inactive alprazolam 0.5 mg tablet RxNorm: 653514 3 Tablet(s) PO QHS as needed for sleep/anxiety 09/20/2016 10/31/2016 Inactive Tamiflu 75 mg capsule RxNorm: 042861 1 Capsule(s) PO QD 09/19/2016 Inactive Lyrica 75 mg capsule RxNorm: 864947 1 Capsule(s) PO QHS 09/19/2016 Inactive prednisone 20 mg tablet RxNorm: 195911 1 Tablet(s) PO QD 08/10/2016 1 10/17/2015 Inactive doxycycline hyclate 100 mg capsule RxNorm: 8078218 1 Capsule(s) PO BID 08/10/2016 08/19/2016 Inactive Medrol (Dustin) 4 mg tablets in a dose pack RxNorm: 544791 Tablet(s) PO As Directed 07/31/2016 08/22/2016 Inactive Singulair 10 mg tablet RxNorm: 276440 TAKE ONE TABLET BY MOUTH JOÉS Y 07/27/2016 07/18/2017 Inactive hydrocodone 10 mg-acetaminophen 325 mg tablet RxNorm: 129931 1-2 Tablet(s) QID as needed for pain MUST LAST 30 DAYS 07/26/2016 08/24/2016 Inactive (Response to an electronic controlled substance refill request - RxReferenceNumber: [id number]) alprazolam 0.5 mg tablet RxNorm: 615417 3 Tablet(s) PO QHS as needed for anxiety or sleep 07/26/2016 09/20/2016 Inactive clindamycin 300 mg capsule RxNorm: 562967 1 Capsule(s) PO TID 07/2007/29/2016 Inactive Diflucan 100 mg tablet RxNorm: 700693 1 Tablet(s) PO QD 07/20/2016 Inactive Levaquin 500 mg tablet RxNorm: 479744 1 Tablet(s) PO QD 07/17/2016 Inactive Levaquin 500 mg tablet RxNorm: 999553 1 Tablet(s) PO QD 07/10/2016 Inactive Levaquin 500 mg tablet RxNorm: 368454 1 Tablet(s) PO QD 07/10/2016 Inactive mupirocin 2 % topical ointment RxNorm: 616946 TOP Apply topically to affected areas twice daily 07/06/2016 09/18/2016 Inactive Singulair 10 mg tablet RxNorm: 834554 TAKE ONE TABLET BY MOUTH JOSÉ Y 06/21/2016 01/21/2019 Inactive alprazolam 0.5 mg tablet RxNorm: 934199 TAKE THREE TABL ETS BY MOUTH AT BEDTIME NEEDED FOR SLEEP OR STRESS 05/22/2016 06/20/2016 Inactive triamterene 75 mg-hydrochlorothiazide 50 mg tablet RxNorm: 3 77480 1 Tablet(s) PO QD 04/26/2016 10/21/2016 Inactive Premarin 1.25 mg tablet RxNorm: 757534 1-2 Tablet(s) PO QD 04/26/20 16 03/20/2017 Inactive Klor-Con 8 mEq tablet,extended release RxNorm: 430902 1 Tablet( s) PO BID 04/26/2016 10/19/2016 Inactive Celebrex 200 mg capsule RxNorm: 577049 1 Capsule(s) PO BID TAKE ONE CAPSULE BY MOUTH EVERY DAY 04/26/2016 10/19/2016 Inactive Lipitor 10 mg tablet RxNorm: 191991 1 Tablet(s) PO QHS 04/26/201605/2017 Inactive allopurinol 300 mg tablet RxNorm: 967588 1 Tablet(s) PO QD TAKE ONE TABLET BY MOUTH EVERY DAY 04/26/2016 10/19/2016 Inactive amlodipine 5 mg-benazepril 20 mg capsule RxNorm: 132456 1 Capsule(s) PO QHS replaces amlodopine 04/26/2016 10/19/2016 Inactive duloxetine 60 mg capsule,delayed release RxNorm: 047039 1 Capsu le(s) PO QD 04/26/2016 10/19/2016 Inactive Bystolic 10 mg tablet RxNorm: 935505 1 Tablet(s) PO QHS 04/26/2016 Inactive Singulair 10 mg tablet RxNorm: 632414 1 Tablet(s) PO QD TAKE ONE TABLET BY MOUTH DAILY 04/26/2016 06/20/2016 Inactive clonidine HCl 0.1 mg tablet RxNorm: 645316 1 Tablet(s) PO QID 04/2610/22/2016 Inactive hydrocodone 10 mg-acetaminophen 325 mg tablet RxNorm: 546983 1-2 Tablet(s) QID as needed for pain TAKE ONE TO TWO TABLETS BY MOUTH FOUR TIMES A DAY . MUST LAST 30 DAYS 03/31/2016 04/29/2016 Inactive (Response to an electronic controlled substance refill request - RxReferenceNumber: [id number]) Klor-Con 8 mEq tablet,extended release RxNorm: 080558 T FARRUKH ONE TABLET BY MOUTH TWICE A DAY 03/24/2016 09/29/2019 Inactive prednisone 20 mg tablet RxNorm: 511601 1 Tablet(s) PO QD 03/09/2016 0 03/08/2016 Inactive prednisone 20 mg tablet RxNorm: 105766 1 Tablet(s) PO QD 03/09/2016 0 03/13/2016 Inactive alprazolam 0.5 mg tablet RxNorm: 549400 3 Tablet(s) PO QHS as needed for sleep/stress 03/02/2016 01/21/2019 Inactive mupirocin 2 % topical ointment RxNorm: 974467 TOP twice daily to affected areas of face and neck 02/21/2016 04/25/2016 Inactive clonidine HCl 0.1 mg tablet RxNorm: 813404 TAKE ONE TAB LET BY MOUTH FOUR TIMES A DAY 02/15/2016 09/29/2019 Inactive clonidine HCl 0.1 mg tablet RxNorm: 417280 1 Tablet(s) PO QID 02/1404/25/2016 Inactive Premarin 1.25 mg tablet RxNorm: 353179 1-2 Tablet(s) PO QD 02/15/20 16 03/15/2016 Inactive Klor-Con 8 mEq tablet,extended release RxNorm: 193589 T FARRUKH ONE TABLET BY MOUTH TWICE A DAY 02/15/2016 03/15/2016 Inactive potassium chloride ER 20 mEq tablet,extended release(part/cr yst) RxNorm: 748510 2 Tablet(s) PO BID 02/15/2016 03/15/2016 Inactive Macrobid 100 mg capsule RxNorm: 494737 1 Capsule(s) PO BID 01/24/20 16 01/30/2016 Inactive prednisone 20 mg tablet RxNorm: 286400 Take 3tabs PO QD x 2 days, then 2 tabs PO QD x 2 days, then 1 tab PO QD x 2 days, then 1/2 tab PO QDy x 2 days 12/23/2015 04/25/2016 Inactive Klor-Con 8 mEq tablet,extended release RxNorm: 225410 T FARRUKH ONE TABLET BY MOUTH TWICE A DAY 12/20/2015 02/14/2016 Inactive alprazolam 1 mg tablet RxNorm: 790768 1 1/2 Tablet(s) PO QHS 201501/23/2016 Inactive nystatin 100,000 unit/gram topical cream RxNorm: 725724 APPLY TO AFFECTED AREA(S) TWO TIMES A DAY 11/30/2015 12/14/2015 Inactive Singulair 10 mg tablet RxNorm: 091505 TAKE ONE TABLET BY MOUTH JOSÉ Y 11/18/2015 04/25/2016 Inactive allopurinol 300 mg tablet RxNorm: 166769 1 Tablet(s) PO QD TAKE ONE TABLET BY MOUTH EVERY DAY 10/26/2015 04/22/2016 Inactive Singulair 10 mg tablet RxNorm: 381964 TAKE ONE TABLET BY MOUTH JOSÉ Y 10/26/2015 11/17/2015 Inactive duloxetine 60 mg capsule,delayed release RxNorm: 757060 1 Capsu le(s) PO QD 10/26/2015 04/22/2016 Inactive triamterene 75 mg-hydrochlorothiazide 50 mg tablet RxNorm: 3 53815 1 Tablet(s) PO QD 10/26/2015 11/14/2016 Inactive potassium chloride ER 20 mEq tablet,extended release(part/cr yst) RxNorm: 450645 2 Tablet(s) PO BID 10/26/2015 02/14/2016 Inactive Lipitor 10 mg tablet RxNorm: 985118 1 Tablet(s) PO QHS 10/26/2015 Inactive amlodipine 5 mg-benazepril 20 mg capsule RxNorm: 909059 1 Capsule(s) PO QHS replaces amlodopine 10/26/2015 04/22/2016 Inactive Bystolic 10 mg tablet RxNorm: 154120 1 Tablet(s) PO QHS 10/26/2015 Inactive amlodipine 5 mg-benazepril 20 mg capsule RxNorm: 891959 1 Capsule(s) PO QHS replaces amlodopine 10/06/2015 10/25/2015 Inactive amlodipine 5 mg tablet RxNorm: 493116 1 Tablet(s) PO QHS 09/30/2015 0 04/25/2016 Inactive metolazone 2.5 mg tablet RxNorm: 876667 TAKE ONE TABLET BY MOUTH DAILY NEEDED FOR EDEMA 09/30/2015 01/21/2019 Inactive duloxetine 60 mg capsule,delayed release RxNorm: 826217 1 Capsu le(s) PO QD 09/30/2015 10/25/2015 Inactive cephalexin 500 mg capsule RxNorm: 151351 1 Capsule(s) PO BID 201509/23/2015 Inactive mupirocin 2 % topical ointment RxNorm: 067096 TOP twice daily to affected areas of face and neck 09/14/2015 02/20/2016 Inactive baclofen 20 mg tablet RxNorm: 084848 1 Tablet(s) PO TID as needed for muscle spasm 09/01/2015 11/14/2016 Inactive clonidine HCl 0.1 mg tablet RxNorm: 107695 1 Tablet(s) PO QID 09/0102/14/2016 Inactive alprazolam 1 mg tablet RxNorm: 856233 1 1/2 Tablet(s) PO QHS 201409/09/2015 Inactive baclofen 20 mg tablet RxNorm: 121874 1 Tablet(s) PO TID as needed for muscle spasm 07/23/2015 09/01/2015 Inactive omeprazole 40 mg capsule,delayed release RxNorm: 915958 1 Capsu le(s) PO QD 07/23/2015 04/25/2016 Inactive alprazolam 1 mg tablet RxNorm: 284318 1 1/2 Tablet(s) PO QHS 201408/10/2015 Inactive Bystolic 10 mg tablet RxNorm: 695462 1 Tablet(s) PO BID 06/24/2015 Inactive allopurinol 300 mg tablet RxNorm: 622158 1 Tablet(s) PO QD TAKE ONE TABLET BY MOUTH EVERY DAY 06/23/2015 10/20/2015 Inactive alprazolam 1 mg tablet RxNorm: 199840 1 1/2 Tablet(s) PO QHS 201407/06/2015 Inactive clonidine HCl 0.1 mg tablet RxNorm: 127397 1 Tablet(s) PO QID 06/0209/01/2015 Inactive clonidine HCl 0.1 mg tablet RxNorm: 974239 1 Tablet(s) PO QID 06/0206/01/2015 Inactive Cymbalta 60 mg capsule,delayed release RxNorm: 169949 1 Capsule (s) PO QHS 06/02/2015 08/30/2015 Inactive Cymbalta 60 mg capsule,delayed release RxNorm: 742742 1 Capsule (s) PO QHS 06/02/2015 06/01/2015 Inactive clonidine HCl 0.1 mg tablet RxNorm: 143099 1 Tablet(s) PO TID 05/3106/01/2015 Inactive replaces 0.2mg dose metolazone 2.5 mg tablet RxNorm: 411504 TAKE ONE TABLET BY MOUTH DAILY NEEDED FOR EDEMA 05/21/2015 06/19/2015 Inactive Singulair 10 mg tablet RxNorm: 485061 TAKE ONE TABLET BY MOUTH JOSÉ Y 05/21/2015 10/17/2015 Inactive Cymbalta 30 mg capsule,delayed release RxNorm: 531783 1 Capsule (s) PO QHS 05/20/2015 11/14/2016 Inactive betamethasone valerate 0.1 % topical cream RxNorm: 197948 Appli cation TOP BID 05/10/2015 04/25/2016 Inactive Bactroban 2 % topical ointment RxNorm: 235039 Application TOP BID 0 05/10/2015 06/20/2015 Inactive baclofen 20 mg tablet RxNorm: 508233 1 Tablet(s) PO TID as needed 0 04/26/2015 07/23/2015 Inactive Lipitor 10 mg tablet RxNorm: 230755 1 Tablet(s) PO QHS 04/26/201508/2016 Inactive clonidine HCl 0.1 mg tablet RxNorm: 209643 1 Tablet(s) PO TID 04/2605/30/2015 Inactive replaces 0.2mg dose Klor-Con 8 mEq tablet,extended release RxNorm: 828270 1 Tablet( s) PO BID 04/26/2015 04/25/2016 Inactive metolazone 2.5 mg tablet RxNorm: 153885 1 Tablet(s) PO QD as ne eded for edema 04/26/2015 04/25/2015 Inactive triamterene 75 mg-hydrochlorothiazide 50 mg tablet RxNorm: 3 54439 1 Tablet(s) PO QD 04/26/2015 10/22/2015 Inactive Premarin 1.25 mg tablet RxNorm: 771245 1-2 Tablet(s) PO QD 04/26/20 15 10/22/2015 Inactive Bystolic 10 mg tablet RxNorm: 254664 1 Tablet(s) PO QAM TAKE ONE TABLET BY MOUTH EVERY MORNING 04/23/2015 06/23/2015 Inactive clonidine HCl 0.1 mg tablet RxNorm: 125417 1 Tablet(s) PO TID 03/2304/25/2015 Inactive replaces 0.2mg dose nystatin 100,000 unit/gram topical cream RxNorm: 082455 Applica tion TOP BID 03/23/2015 06/20/2015 Inactive baclofen 20 mg tablet RxNorm: 607551 1 Tablet(s) PO TID as needed 0 03/23/2015 04/25/2015 Inactive Premarin 1.25 mg tablet RxNorm: 909496 1-2 Tablet(s) PO QD 03/23/20 15 04/25/2015 Inactive Klor-Con 8 mEq tablet,extended release RxNorm: 237342 1 Tablet( s) PO BID 03/23/2015 04/25/2015 Inactive cefdinir 300 mg capsule RxNorm: 520444 2 Capsule(s) PO QD 03/16/2015 03/25/2015 Inactive baclofen 20 mg tablet RxNorm: 925760 1 Tablet(s) PO TID as needed 0 03/02/2015 03/22/2015 Inactive allopurinol 300 mg tablet RxNorm: 424581 1 Tablet(s) PO QD TAKE ONE TABLET BY MOUTH EVERY DAY 02/22/2015 05/22/2015 Inactive Klor-Con M20 mEq tablet,extended release RxNorm: 582310 2 Tablet(s) PO BID to use with lasix 02/22/2015 06/20/2015 Inactive clonidine HCl 0.1 mg tablet RxNorm: 722887 1 Tablet(s) PO TID 02/1903/22/2015 Inactive replaces 0.2mg dose Lipitor 10 mg tablet RxNorm: 306323 1 Tablet(s) PO QHS 01/20/201506/2015 Inactive Lipitor 10 mg tablet RxNorm: 392363 1 Tablet(s) PO QHS 01/20/2015 Inactive Singulair 10 mg tablet RxNorm: 536700 1 Tablet(s) PO QD TAKE ONE TABLET BY MOUTH EVERY DAY 11/20/2014 05/18/2015 Inactive Lipitor 10 mg tablet RxNorm: 081208 1 Tablet(s) PO QHS 11/20/201408/2015 Inactive allopurinol 300 mg tablet RxNorm: 680272 1 Tablet(s) PO QD TAKE ONE TABLET BY MOUTH EVERY DAY 11/20/2014 02/16/2015 Inactive Bystolic 10 mg tablet RxNorm: 368080 1 Tablet(s) PO QAM TAKE ONE TABLET BY MOUTH EVERY MORNING 11/20/2014 04/22/2015 Inactive Klor-Con 8 mEq tablet,extended release RxNorm: 090818 1 Tablet( s) PO BID 11/20/2014 02/17/2015 Inactive baclofen 20 mg tablet RxNorm: 327851 1 Tablet(s) PO TID as needed 0 11/20/2014 01/21/2019 Inactive baclofen 20 mg tablet RxNorm: 754176 1 Tablet(s) PO TID as needed 0 10/27/2014 11/19/2014 Inactive baclofen 20 mg tablet RxNorm: 825251 1 Tablet(s) PO TID as needed 0 10/26/2014 03/01/2015 Inactive allopurinol 300 mg tablet RxNorm: 048800 1 Tablet(s) PO QD TAKE ONE TABLET BY MOUTH EVERY DAY 10/26/2014 11/20/2014 Inactive Bystolic 10 mg tablet RxNorm: 780582 1 Tablet(s) PO QAM TAKE ONE TABLET BY MOUTH EVERY MORNING 10/26/2014 11/20/2014 Inactive clonidine HCl 0.1 mg tablet RxNorm: 643320 1 Tablet(s) PO TID 09/2805/27/2019 Inactive replaces 0.2mg dose clonidine HCl 0.1 mg tablet RxNorm: 074192 1 Tablet(s) PO TID 09/2802/18/2015 Inactive replaces 0.2mg dose baclofen 20 mg tablet RxNorm: 153847 1 Tablet(s) PO TID as needed 1 11/01/2013 08/30/2014 Inactive Lipitor 10 mg tablet RxNorm: 866933 1 Tablet(s) PO QHS 08/31/2014 Inactive baclofen 20 mg tablet RxNorm: 262441 1 Tablet(s) PO TID as needed 1 11/01/2013 10/26/2014 Inactive triamterene 75 mg-hydrochlorothiazide 50 mg tablet RxNorm: 3 72170 1 Tablet(s) PO QD 08/31/2014 02/26/2015 Inactive Klor-Con 8 mEq tablet,extended release RxNorm: 644857 1 Tablet( s) PO BID 08/31/2014 11/20/2014 Inactive baclofen 20 mg tablet RxNorm: 077364 1 Tablet(s) PO TID as needed 1 09/30/2013 10/25/2014 Inactive baclofen 20 mg tablet RxNorm: 989552 1 Tablet(s) PO TID as needed 1 09/30/2013 08/31/2014 Inactive omeprazole 40 mg capsule,delayed release RxNorm: 953884 1 Capsu le(s) PO QD 07/21/2014 07/23/2015 Inactive Flonase 50 mcg/actuation nasal spray,suspension RxNorm: 8963 23 1 Shirley NASAL BID 07/15/2014 04/09/2017 Inactive hydrocodone 10 mg-acetaminophen 325 mg tablet RxNorm: 335979 1-2 Tablet(s) QID as needed for pain TAKE ONE TO TWO TABLETS BY MOUTH FOUR TIMES A DAY . MUST LAST 30 DAYS 06/30/2014 07/27/2014 Inactive (Response to an electronic controlled substance refill request - RxReferenceNumber: [id number]) baclofen 20 mg tablet RxNorm: 667625 1 Tablet(s) PO TID as needed 1 07/31/2014 Inactive Singulair 10 mg tablet RxNorm: 652981 1 Tablet(s) PO QD TAKE ONE TABLET BY MOUTH EVERY DAY 05/25/2014 11/20/2014 Inactive Bystolic 10 mg tablet RxNorm: 674883 TAKE ONE TABLET BY MOUTH E VERY MORNING 05/25/2014 09/21/2014 Inactive allopurinol 300 mg tablet RxNorm: 123945 1 Tablet(s) PO QD TAKE ONE TABLET BY MOUTH EVERY DAY 05/25/2014 10/21/2014 Inactive baclofen 20 mg tablet RxNorm: 687933 1 Tablet(s) PO TID as needed 0 05/25/2014 06/29/2014 Inactive allopurinol 300 mg tablet RxNorm: 422206 TAKE ONE TABLET BY LOPEZ TH EVERY DAY 05/25/2014 09/21/2014 Inactive Singulair 10 mg tablet RxNorm: 782676 1 Tablet(s) PO QD TAKE ONE TABLET BY MOUTH EVERY DAY 05/25/2014 05/24/2014 Inactive Bystolic 10 mg tablet RxNorm: 517478 1 Tablet(s) PO QAM TAKE ONE TABLET BY MOUTH EVERY MORNING 05/25/2014 10/21/2014 Inactive metolazone 2.5 mg tablet RxNorm: 033516 1 Tablet(s) PO QD as ne eded for edema 05/18/2014 04/25/2015 Inactive Lasix 40 mg tablet RxNorm: 204915 1 Tablet(s) PO QAM s hould take potassium supplementation with this medication 05/14/2014 05/17/2014 Inactive hydrocodone 10 mg-acetaminophen 325 mg tablet RxNorm: 785129 1-2 Tablet(s) QID as needed for pain TAKE ONE TO TWO TABLETS BY MOUTH FOUR TIMES A DAY . MUST LAST 30 DAYS 05/07/2014 06/05/2014 Inactive (Response to an electronic controlled substance refill request - RxReferenceNumber: [id number]) alprazolam 0.5 mg tablet RxNorm: 779252 TAKE ONE TABLET BY MOUTH TWICE A DAY , MUST LAST 30 DAYS 05/07/2014 05/22/2016 Inactive (Response to a n electronic controlled substance refill request - RxReferenceNumber: [id number]) diclofenac sodium 75 mg tablet,delayed release RxNorm: 09024 6 1 Tablet(s) PO BID for pain 04/24/2014 07/20/2014 Inactive Celebrex 200 mg capsule RxNorm: 264793 TAKE ONE CAPSULE BY MOUT H EVERY DAY 04/24/2014 07/20/2014 Inactive alprazolam 0.5 mg tablet RxNorm: 111260 TAKE ONE TABLET BY MOUTH TWICE A DAY , MUST LAST 30 DAYS 03/24/2014 04/22/2014 Inactive (Response to a n electronic controlled substance refill request - RxReferenceNumber: [id number]) diclofenac sodium 75 mg tablet,delayed release RxNorm: 19707 6 1 Tablet(s) PO BID for pain 03/24/2014 04/24/2014 Inactive clonidine HCl 0.1 mg tablet RxNorm: 195897 1 Tablet(s) PO TID 03/2409/28/2014 Inactive replaces 0.2mg dose Klor-Con 8 mEq tablet,extended release RxNorm: 586896 1 Tablet( s) PO BID 02/26/2014 08/31/2014 Inactive diclofenac sodium 75 mg tablet,delayed release RxNorm: 36436 6 1 Tablet(s) PO BID for pain 02/25/2014 03/24/2014 Inactive hydrocodone 10 mg-acetaminophen 325 mg tablet RxNorm: 639953 1-2 Tablet(s) QID as needed for pain TAKE ONE TO TWO TABLETS BY MOUTH FOUR TIMES A DAY . MUST LAST 30 DAYS 02/25/2014 03/26/2014 Inactive (Response to an electronic controlled substance refill request - RxReferenceNumber: [id number]) alprazolam 0.5 mg tablet RxNorm: 332996 Tablet(s) PO BI D as needed for anxiety TAKE ONE TABLET BY MOUTH TWICE A DAY , MUST LAST 30 DAYS 02/25/2014 Inactive (Response to an electronic controlled [place] bstance refill request - RxReferenceNumber: [id number]) [AttnRPh: Saving apply/adjudicate RxGRP:SG20 RxBIN:[id number] RxPCN: ID#:[id number]] alprazolam 0.5 mg tablet RxNorm: 701421 Tablet(s) TAKE ONE TABLET BY MOUTH TWICE A DAY , MUST LAST 30 DAYS 01/27/2014 02/24/2014 Inactive (Respo nse to an electronic controlled substance refill request - RxReferenceNumber: [id number]) [AttnRPh: Saving apply/adjudicate RxGRP:SG20 RxBIN:[id number] RxPCN: ID#:[id number]] hydrocodone 10 mg-acetaminophen 325 mg tablet RxNorm: 637712 1-2 Tablet(s) QID as needed for pain TAKE ONE TO TWO TABLETS BY MOUTH FOUR TIMES A DAY . MUST LAST 30 DAYS 01/27/2014 02/24/2014 Inactive (Response to an electronic controlled substance refill request - RxReferenceNumber: [id number]) alprazolam 0.5 mg tablet RxNorm: 452419 TAKE ONE TABLET BY MOUTH TWICE A DAY , MUST LAST 30 DAYS 01/27/2014 01/26/2014 Inactive (Response to a n electronic controlled substance refill request - RxReferenceNumber: [id number]) Premarin 1.25 mg tablet RxNorm: 230064 1-2 Tablet(s) PO QD 01/28/20 14 07/25/2014 Inactive alprazolam 0.5 mg tablet RxNorm: 696629 TAKE ONE TABLET BY MOUTH TWICE A DAY , MUST LAST 30 DAYS 01/27/2014 01/27/2014 Inactive (Response to a n electronic controlled substance refill request - RxReferenceNumber: [id number]) hydrocodone 10 mg-acetaminophen 325 mg tablet RxNorm: 404674 TAKE ONE TO TWO TABLETS BY MOUTH FOUR TIMES A DAY . MUST LAST 30 DAYS 01/27/20142013 Inactive (Response to an electronic controlled [place] bstance refill request - RxReferenceNumber: [id number]) Celebrex 200 mg capsule RxNorm: 424089 1 Capsule(s) PO QD TAKE ONE CAPSULE BY MOUTH EVERY DAY 12/29/2013 04/27/2014 Inactive hydrocodone 10 mg-acetaminophen 325 mg tablet RxNorm: 327027 1-2 Tablet(s) PO QID as needed for severe pain 12/29/2013 01/27/2014 Inactive allopurinol 300 mg tablet RxNorm: 625758 1 Tablet(s) PO QD TAKE ONE TABLET BY MOUTH EVERY DAY 12/29/2013 05/24/2014 Inactive alprazolam 0.5 mg tablet RxNorm: 571579 TAKE ONE TABLET BY MOUTH TWICE A DAY , MUST LAST 30 DAYS 12/29/2013 01/27/2014 Inactive (Response to a n electronic controlled substance refill request - RxReferenceNumber: [id number]) Celebrex 200 mg capsule RxNorm: 797011 1 Capsule(s) PO QD TAKE ONE CAPSULE BY MOUTH EVERY DAY 12/29/2013 12/29/2013 Inactive Bystolic 10 mg tablet RxNorm: 931762 1 Tablet(s) PO QAM TAKE ONE TABLET BY MOUTH EVERY MORNING 12/29/2013 05/24/2014 Inactive Bystolic 10 mg tablet RxNorm: 803258 1 Tablet(s) PO QAM TAKE ONE TABLET BY MOUTH EVERY MORNING 12/29/2013 12/29/2013 Inactive Singulair 10 mg tablet RxNorm: 262831 1 Tablet(s) PO QD TAKE ONE TABLET BY MOUTH EVERY DAY 12/29/2013 05/25/2014 Inactive hydrocodone 10 mg-acetaminophen 325 mg tablet RxNorm: 571046 TAKE ONE TO TWO TABLETS BY MOUTH FOUR TIMES A DAY . MUST LAST 30 DAYS 12/29/20132013 Inactive (Response to an electronic controlled [place] bstance refill request - RxReferenceNumber: [id number]) Trazadone 75mg Tablet RxNorm: 1 Tablet(s) PO QHS as needed 03/23/2014 Inactive Trazadone 75mg Tablet RxNorm: 1 Tablet(s) PO QHS 12/24/20132014 Inactive Soma 350 mg tablet RxNorm: 378498 Tablet(s) PO TAKE ON E TABLET BY MOUTH THREE TIMES A DAY NEEDED FOR MUSCLE SPASMS. THIS MUST LAST 30 DAYS BETWEEN REFILLS. 12/10/2013 12/22/2013 Inactive (Appended: Cont rolled substance eRx refill - RxReferenceNumber: [id number]) diclofenac sodium 75 mg tablet,delayed release RxNorm: 72765 6 1 Tablet(s) PO BID for pain 12/10/2013 02/24/2014 Inactive allopurinol 300 mg tablet RxNorm: 944882 1 Tablet(s) PO QD 11/20/19 14 12/29/2013 Inactive alprazolam 0.5 mg tablet RxNorm: 018941 2 Tablet(s) PO BID 11/13/19 14 12/29/2013 Inactive prn clonidine 0.1 mg tablet RxNorm: 839642 1 Tablet(s) PO TID 11/12/2013 02/09/2014 Inactive replaces 0.2mg dose Klor-Con M20 mEq tablet,extended release RxNorm: 683374 2 Tablet(s) PO BID to use with lasix 11/12/2013 05/10/2014 Inactive Singulair 10 mg tablet RxNorm: 814647 1 Tablet(s) PO QD 11/12/2013 Inactive hydrocodone 10 mg-acetaminophen 325 mg tablet RxNorm: 013744 1-2 Tablet(s) PO QID as needed for severe pain 11/12/2013 12/28/2013 Inactive Bystolic 10 mg tablet RxNorm: 516299 1 Tablet(s) PO QAM 11/12/2013 Inactive Soma 350 mg tablet RxNorm: 489668 Tablet(s) PO TAKE ON E TABLET BY MOUTH THREE TIMES A DAY NEEDED FOR MUSCLE SPASMS. THIS MUST LAST 30 DAYS BETWEEN REFILLS. 10/13/2013 12/10/2013 Inactive (Appended: Cont rolled substance eRx refill - RxReferenceNumber: [id number]) hydrocodone 10 mg-acetaminophen 325 mg tablet RxNorm: 380101 1-2 Tablet(s) PO QID as needed for severe pain 10/03/2013 11/11/2013 Inactive diclofenac sodium 75 mg tablet,delayed release RxNorm: 73110 8 1 Tablet(s) PO BID for pain 09/11/2013 12/10/2013 Inactive alprazolam 0.5 mg tablet RxNorm: 285390 1 Tablet(s) PO BID May refill on 04/26/13 09/01/2013 10/30/2013 Inactive prn hydrocodone 10 mg-acetaminophen 325 mg tablet RxNorm: 529001 1-2 Tablet(s) PO QID as needed for severe pain 09/01/2013 10/02/2013 Inactive triamterene 75 mg-hydrochlorothiazide 50 mg tablet RxNorm: 3 13740 1 Tablet(s) PO QD 08/04/2013 08/31/2014 Inactive cyclobenzaprine 10 mg tablet RxNorm: 450517 1 Tablet(s) PO TID prn spasm 08/04/2013 08/13/2013 Inactive clonidine 0.1 mg tablet RxNorm: 780745 1 Tablet(s) PO TID 08/04/2013 11/11/2013 Inactive replaces 0.2mg dose cyclobenzaprine 10 mg tablet RxNorm: 563455 1 Tablet(s) PO TID prn spasm 07/23/2013 08/01/2013 Inactive hydrocodone 10 mg-acetaminophen 325 mg tablet RxNorm: 369104 2 1-2 Tablet(s) PO QID as needed for severe pain 06/09/2013 08/07/2013 Inactive Singulair 10 mg tablet RxNorm: 743926 1 Tablet(s) PO QD 05/29/2013 Inactive Klor-Con 8 mEq tablet,extended release RxNorm: 243756 1 Tablet( s) PO BID 05/29/2013 02/26/2014 Inactive allopurinol 300 mg tablet RxNorm: 004208 1 Tablet(s) PO QD 05/29/20 13 11/19/2013 Inactive Bystolic 10 mg tablet RxNorm: 516995 1 Tablet(s) PO QAM take one daily in the morning. 05/29/2013 11/11/2013 Inactive scopolamine 1.5 mg 72 hr Transderm Patch RxNorm: 052024 Application TD Q72H for motion sickness 05/26/2013 07/22/2013 Inactive Soma 350 mg tablet RxNorm: 758646 1 Tablet(s) PO TID as needed for spasm 05/19/2013 10/13/2013 Inactive diclofenac sodium 75 mg tablet,delayed release RxNorm: 65496 8 1 Tablet(s) PO BID for pain 05/14/2013 07/22/2013 Inactive allopurinol 300 mg tablet RxNorm: 199783 1 Tablet(s) PO QD 04/25/2005/28/2013 Inactive alprazolam 0.5 mg tablet RxNorm: 765484 1 Tablet(s) PO BID May refill on 04/26/13 04/25/2013 06/23/2013 Inactive prn Celebrex 200 mg capsule RxNorm: 003469 1 Capsule(s) PO QD 04/16/2013 12/29/2013 Inactive alprazolam 0.5 mg tablet RxNorm: 669743 1 Tablet(s) PO BID May refill on 04/26/13 04/16/2013 04/24/2013 Inactive prn Soma 350 mg tablet RxNorm: 407207 1 Tablet(s) PO TID as needed for spasm 04/16/2013 No Stop Date Active Lasix 40 mg tablet RxNorm: 922575 1 Tablet(s) PO QAM s hould take potassium supplementation with this medication 04/16/2013 06/14/2013 Inactive clonidine 0.1 mg tablet RxNorm: 238989 1 Tablet(s) PO TID 04/16/2013 08/03/2013 Inactive replaces 0.2mg dose prednisone 20 mg tablet RxNorm: 224576 1 Tablet(s) PO BID 04/16/2013 04/20/2013 Inactive diclofenac sodium 75 mg tablet,delayed release RxNorm: 78132 8 1 Tablet(s) PO BID for pain 04/14/2013 05/13/2013 Inactive hydrocodone 10 mg-acetaminophen 325 mg tablet RxNorm: 447334 2 1-2 Tablet(s) PO QID as needed for severe pain 04/14/2013 No Stop Date Active Lasix 40 mg tablet RxNorm: 855129 1 Tablet(s) PO QAM s hould take potassium supplementation with this medication 03/31/2013 04/15/2013 Inactive Celebrex 200 mg capsule RxNorm: 500167 1 Capsule(s) PO QD 03/31/2013 04/15/2013 Inactive alprazolam 0.5 mg tablet RxNorm: 150561 1 Tablet(s) PO BID 03/28/20 13 04/15/2013 Inactive prn hydrocodone 10 mg-acetaminophen 325 mg tablet RxNorm: 833409 2 1-2 Tablet(s) PO QID as needed for severe pain 03/10/2013 No Stop Date Active metformin ER 500 mg 24 hr tablet,extended release RxNorm: 86 1018 1 Tablet(s) PO QD 03/06/2013 07/22/2013 Inactive clindamycin 300 mg capsule RxNorm: 667411 2 Capsule(s) PO TID 03/0503/14/2013 Inactive Zaroxolyn 2.5 mg tablet RxNorm: 555834 1 Tablet(s) PO QAM 03/05/2013 05/19/2015 Inactive amlodipine 10 mg tablet RxNorm: 840168 1 Tablet(s) PO QD 03/03/2013 0 05/25/2013 Inactive Norvasc 10 mg tablet RxNorm: 217268 1 Tablet(s) PO QD 02/28/201307/11 Inactive Celebrex 200 mg capsule RxNorm: 041529 1 Capsule(s) PO QD 02/28/2013 03/30/2013 Inactive diclofenac sodium 75 mg tablet,delayed release RxNorm: 85526 8 1 Tablet(s) PO BID for pain 02/14/2013 03/15/2013 Inactive Soma 350 mg tablet RxNorm: 100862 1 Tablet(s) PO TID as needed for spasm 02/14/2013 No Stop Date Active hydrocodone 10 mg-acetaminophen 325 mg tablet RxNorm: 773014 2 1-2 Tablet(s) PO QID as needed for severe pain 02/14/2013 No Stop Date Active Norvasc 10 mg tablet RxNorm: 593226 1 Tablet(s) PO QD 02/10/201302/09 Inactive Celebrex 200 mg capsule RxNorm: 126910 1 Capsule(s) PO QD 01/27/2013 01/26/2013 Inactive Premarin 1.25 mg tablet RxNorm: 338549 1-2 Tablet(s) PO QD 01/28/20 13 06/25/2013 Inactive alprazolam 0.5 mg tablet RxNorm: 893032 1 Tablet(s) PO BID 01/28/20 13 02/25/2013 Inactive prn amlodipine 5 mg tablet RxNorm: 326446 1 Tablet(s) PO QD 01/27/2013 Inactive Celebrex 200 mg capsule RxNorm: 287916 1 Capsule(s) PO QD 01/27/2013 02/27/2013 Inactive gabapentin 600 mg tablet RxNorm: 992574 1 Tablet(s) PO QHS 01/16/20 13 07/22/2013 Inactive Soma 350 mg tablet RxNorm: 101556 1 Tablet(s) PO TID as needed for spasm 01/15/2013 No Stop Date Active hydrocodone 10 mg-acetaminophen 325 mg tablet RxNorm: 366489 2 1-2 Tablet(s) PO QID as needed for severe pain 01/15/2013 No Stop Date Active Soma 350 mg tablet RxNorm: 404967 1 Tablet(s) PO TID as needed for spasm 01/13/2013 No Stop Date Active alprazolam 0.5 mg tablet RxNorm: 393495 1 Tablet(s) PO BID 12/31/19 13 01/26/2013 Inactive prn diclofenac sodium 75 mg tablet,delayed release RxNorm: 78861 8 1 Tablet(s) PO BID for pain 12/09/2012 01/07/2013 Inactive gabapentin 600 mg tablet RxNorm: 873471 1 Tablet(s) PO QHS 12/10/19 13 01/07/2013 Inactive hydrocodone 10 mg-acetaminophen 325 mg tablet RxNorm: 820230 2 1-2 Tablet(s) PO QID as needed for severe pain 12/02/2012 No Stop Date Active Levaquin 750 mg tablet RxNorm: 711162 1 Tablet(s) PO QD 11/21/2012 Inactive Singulair 10 mg tablet RxNorm: 528587 1 Tablet(s) PO QD 11/11/2012 Inactive clonidine 0.2 mg tablet RxNorm: 016660 1 Tablet(s) PO TID 11/11/2012 04/15/2013 Inactive alprazolam 0.5 mg tablet RxNorm: 963793 1 Tablet(s) PO BID 11/12/19 13 12/10/2012 Inactive prn Klor-Con 8 mEq tablet,extended release RxNorm: 037121 1 Tablet( s) PO BID 11/11/2012 03/04/2013 Inactive hydrocodone 10 mg-acetaminophen 325 mg tablet RxNorm: 787820 2 1-2 Tablet(s) PO QID as needed for severe pain 11/06/2012 No Stop Date Active alprazolam 0.5 mg tablet RxNorm: 025028 1 Tablet(s) PO BID 10/15/19 13 11/10/2012 Inactive prn hydrocodone-acetaminophen 10 mg-325 mg tablet RxNorm: 450285 2 1-2 Tablet(s) PO QID as needed for severe pain 10/10/2012 10/09/2012 Inactive allopurinol 300 mg tablet RxNorm: 013457 1 Tablet(s) PO QD 09/20/19 13 12/18/2012 Inactive alprazolam 0.5 mg tablet RxNorm: 300900 1 Tablet(s) PO BID 09/17/19 13 10/14/2012 Inactive prn hydrocodone-acetaminophen 10 mg-325 mg tablet RxNorm: 697653 2 1-2 Tablet(s) PO QID as needed for severe pain 08/22/2012 08/21/2012 Inactive Norvasc 10 mg tablet RxNorm: 389571 1 Tablet(s) PO QD 08/12/201201/10 Inactive Premarin 1.25 mg tablet RxNorm: 111271 1-2 Tablet(s) PO QD 07/30/2012/26/2012 Inactive alprazolam 0.5 mg tablet RxNorm: 917722 1 Tablet(s) PO BID 07/29/2008/27/2012 Inactive prn Klor-Con 8 mEq tablet,extended release RxNorm: 925437 1 Tablet( s) PO BID 07/29/2012 11/10/2012 Inactive hydrocodone-acetaminophen 10 mg-325 mg tablet RxNorm: 814792 2 1-2 Tablet(s) PO QID as needed for severe pain 07/29/2012 No Stop Date Active Premarin 1.25 mg tablet RxNorm: 175885 1-2 Tablet(s) PO QD 07/29/2007/29/2012 Inactive clonidine 0.2 mg tablet RxNorm: 838884 1 Tablet(s) PO TID 07/29/2012 10/28/2012 Inactive ketorolac 10 mg tablet RxNorm: 486676 1 Tablet(s) PO QID prn he adache 07/18/2012 No Stop Date Active hydrocodone-acetaminophen 10 mg-325 mg tablet RxNorm: 942318 2 1-2 Tablet(s) PO QID as needed for severe pain 07/03/2012 No Stop Date Active amlodipine 5 mg tablet RxNorm: 817309 1 Tablet(s) PO QD 07/02/2012 Inactive allopurinol 300 mg tablet RxNorm: 563190 1 Tablet(s) PO QD 07/02/20 12 09/19/2012 Inactive Celebrex 200 mg capsule RxNorm: 998937 1 Capsule(s) PO QD for j oint pain 06/26/2012 10/23/2012 Inactive diclofenac sodium 75 mg tablet,delayed release RxNorm: 87402 8 1 Tablet(s) PO BID for pain 06/19/2012 09/16/2012 Inactive hydrocodone-acetaminophen 10 mg-325 mg tablet RxNorm: 076422 2 1-2 Tablet(s) PO QID as needed for severe pain 06/10/2012 No Stop Date Active alprazolam 0.5 mg tablet RxNorm: 050174 1 Tablet(s) PO BID 06/03/20 12 07/02/2012 Inactive prn ketorolac 10 mg tablet RxNorm: 940090 1 Tablet(s) PO Q8H 05/27/2012 0 01/21/2019 Inactive as needed for headache hydrocodone-acetaminophen 10 mg-325 mg tablet RxNorm: 168806 2 1-2 Tablet(s) PO QID as needed for severe pain 05/15/2012 No Stop Date Active allopurinol 300 mg tablet RxNorm: 671555 1 Tablet(s) PO QD 05/14/20 12 06/12/2012 Inactive allopurinol 300 mg tablet RxNorm: 964049 1 Tablet(s) PO QD 05/14/20 12 05/13/2012 Inactive amlodipine 5 mg tablet RxNorm: 718366 1 Tablet(s) PO QD 05/01/2012 Inactive amlodipine 5 mg Tab RxNorm: 727318 1 Tablet(s) PO QD 05/01/201204/30 Inactive Celebrex 200 mg capsule RxNorm: 155024 1 Capsule(s) PO QD for j oint pain 05/01/2012 06/25/2012 Inactive Singulair 10 mg tablet RxNorm: 605208 1 Tablet(s) PO QD 05/01/2012 Inactive alprazolam 0.5 mg tablet RxNorm: 906889 1 Tablet(s) PO BID 05/01/20 12 05/30/2012 Inactive prn Celebrex 200 mg Cap RxNorm: 823507 1 Capsule(s) PO QD for joint radu n 05/01/2012 04/30/2012 Inactive hydrocodone-acetaminophen 10 mg-325 mg tablet RxNorm: 655330 2 1-2 Tablet(s) PO QID as needed for severe pain 04/19/2012 No Stop Date Active Lasix 40 mg tablet RxNorm: 646389 1 Tablet(s) PO QAM s hould take potassium supplementation with this medication 04/05/2012 06/03/2012 Inactive alprazolam 0.5 mg Tab RxNorm: 960864 1 Tablet(s) PO BID 04/05/2012 Inactive prn hydrocodone-acetaminophen 10 mg-325 mg Tab RxNorm: 6936228 1-2 Tablet(s) PO QID as needed for severe pain 03/25/2012 03/24/2012 Inactive clonidine 0.2 mg Tab RxNorm: 506976 1 Tablet(s) PO TID 03/08/2012 Inactive alprazolam 0.5 mg Tab RxNorm: 739405 1 Tablet(s) PO BID 03/08/2012 Inactive prn Soma 350 mg tablet RxNorm: 742561 1 Tablet(s) PO TID for spasm 02/0903/18/2012 Inactive clonidine 0.2 mg tablet RxNorm: 395578 1 Tablet(s) PO TID 03/08/2012 07/28/2012 Inactive Celebrex 200 mg Cap RxNorm: 650853 1 Capsule(s) PO QD for joint radu n 03/01/2012 04/29/2012 Inactive amlodipine 5 mg Tab RxNorm: 857766 1 Tablet(s) PO QD 02/26/201202/24 Inactive amlodipine 5 mg Tab RxNorm: 267180 1 Tablet(s) PO QD 02/26/201204/25 Inactive Bactroban 2 % Ointment RxNorm: 783306 Application TOP QID to sores 02/23/2012 No Stop Date Active amlodipine 2.5 mg tablet RxNorm: 887871 1 Tablet(s) PO QHS 02/20/2002/25/2012 Inactive doxycycline hyclate 100 mg Cap RxNorm: 5614384 1 Capsule(s) PO BID 02/20/2012 02/29/2012 Inactive hydrocodone-acetaminophen 10 mg-325 mg Tab RxNorm: 5779537 1-2 T ablet(s) PO QID 02/08/2012 No Stop Date Active alprazolam 0.5 mg Tab RxNorm: 615859 1 Tablet(s) PO BID 02/08/2012 Inactive prn Singulair 10 mg Tab RxNorm: 444007 1 Tablet(s) PO QD 02/08/201204/30 Inactive Soma 350 mg Tab RxNorm: 728409 1 Tablet(s) PO TID for spasm 012 03/07/2012 Inactive Soma 350 mg Tab RxNorm: 414742 1 Tablet(s) PO TID for spasm 012 02/05/2012 Inactive diclofenac sodium 75 mg tablet,delayed release RxNorm: 59830 8 1 Tablet(s) PO BID for pain 02/01/2012 03/18/2012 Inactive Celebrex 200 mg Cap RxNorm: 017110 1 Capsule(s) PO QD for joint radu n 01/30/2012 02/28/2012 Inactive Lasix 40 mg Tab RxNorm: 295097 1 Tablet(s) PO QAM 01/24/2012 03/18/20 12 Inactive potassium chloride ER 20 mEq tablet,extended release(part/cr yst) RxNorm: 861785 2 Tablet(s) PO BID 01/24/2012 02/22/2012 Inactive alprazolam 0.5 mg Tab RxNorm: 925230 1 Tablet(s) PO BID 01/11/2012 Inactive prn hydrocodone-acetaminophen 10 mg-325 mg Tab RxNorm: 6760291 1-2 T ablet(s) PO QID 01/11/2012 No Stop Date Active Ambien 10 mg Tab RxNorm: 406183 1 Tablet(s) PO QHS 01/11/2012 012 Inactive Klor-Con 8 mEq Tab RxNorm: 257623 1 Tablet(s) PO BID 01/11/201201/22 Inactive diclofenac sodium 75 mg Tab, Delayed Release RxNorm: 434093 1 Tablet(s) PO BID for pain 01/10/2012 01/31/2012 Inactive Ambien 10 mg Tab RxNorm: 335734 1 Tablet(s) PO QHS 12/11/2011 012 Inactive alprazolam 0.5 mg Tab RxNorm: 674725 1 Tablet(s) PO BID 12/11/2011 Inactive prn hydrocodone 10 mg-acetaminophen 325 mg tablet RxNorm: 349688 1-2 Tablet(s) PO TID 11/28/2011 No Stop Date Active as needed for pa in - Previous quantity #240, will start dosing for #180 in April 2011 per Doctor Td. Ambien 10 mg Tab RxNorm: 995845 1 Tablet(s) PO QHS 11/09/2011 012 Inactive alprazolam 0.5 mg Tab RxNorm: 704522 1 Tablet(s) PO BID 11/09/2011 Inactive prn hydrocodone-acetaminophen 10 mg-325 mg Tab RxNorm: 8380298 1-2 T ablet(s) PO TID 11/06/2011 No Stop Date Active as needed for pain - Previous quantity #240, will start dosing for #180 in April 2011 per Doctor Td. Singulair 10 mg Tab RxNorm: 359394 1 Tablet(s) PO QD 10/13/201110/12 Inactive Singulair 10 mg Tab RxNorm: 103414 1 Tablet(s) PO QD 10/13/201102/06 Inactive hydrocodone-acetaminophen 10 mg-325 mg Tab RxNorm: 8814772 1-2 T ablet(s) PO TID 10/10/2011 10/09/2011 Inactive as needed for pain - Previous quantity #240, will start dosing for #180 in April 2011 per Doctor Td. hydrocodone-acetaminophen 10 mg-325 mg Tab RxNorm: 8585124 1-2 T ablet(s) PO TID 10/09/2011 No Stop Date Active as needed for pain - Previous quantity #240, will start dosing for #180 in April 2011 per Doctor Td. Klor-Con 8 mEq Tab RxNorm: 520039 1 Tablet(s) PO BID 10/02/201101/09 Inactive triamterene 75 mg-hydrochlorothiazide 50 mg tablet RxNorm: 3 69762 1 Tablet(s) PO QD 09/14/2011 03/06/2013 Inactive Ambien 10 mg Tab RxNorm: 260886 1 Tablet(s) PO QHS 09/14/2011 012 Inactive hydrocodone-acetaminophen 10 mg-325 mg Tab RxNorm: 9138778 1-2 T ablet(s) PO TID 09/14/2011 No Stop Date Active as needed for pain - Previous quantity #240, will start dosing for #180 in April 2011 per Doctor Td. alprazolam 0.5 mg Tab RxNorm: 183776 1 Tablet(s) PO BID 09/14/2011 Inactive prn Zithromax 500 mg Tab RxNorm: 752755 1 Tablet(s) PO QD 09/13/201109/10 Inactive prednisone 20 mg Tab RxNorm: 187962 1 Tablet(s) PO BID 08/31/2011 Inactive Ambien 10 mg Tab RxNorm: 079841 1 Tablet(s) PO QHS 08/17/2011 011 Inactive hydrocodone-acetaminophen 10 mg-325 mg Tab RxNorm: 5048871 1-2 T ablet(s) PO TID 08/17/2011 No Stop Date Active as needed for pain - Previous quantity #240, will start dosing for #180 in April 2011 per Doctor Td. clonidine 0.2 mg Tab RxNorm: 984112 1 Tablet(s) PO TID 08/17/201112/2011 Inactive Ambien 10 mg Tab RxNorm: 700810 1 Tablet(s) PO QHS 08/17/2011 019 Inactive alprazolam 0.5 mg Tab RxNorm: 124635 1 Tablet(s) PO BID 08/17/2011 Inactive prn hydrocodone-acetaminophen 10 mg-325 mg Tab RxNorm: 2161283 1-2 T ablet(s) PO TID 08/17/2011 08/16/2011 Inactive as needed for pain - Previous quantity #240, will start dosing for #180 in April 2011 per Doctor Td. Singulair 10 mg Tab RxNorm: 742060 1 Tablet(s) PO QD 08/17/201108/16 Inactive Klor-Con 8 mEq Tab RxNorm: 139603 1 Tablet(s) PO QD 08/17/20112011 Inactive alprazolam 0.5 mg Tab RxNorm: 450815 1 Tablet(s) PO BID 07/20/2011 Inactive prn Ambien 10 mg Tab RxNorm: 943042 1 Tablet(s) PO QHS 07/20/2011 012 Inactive Singulair 10 mg Tab RxNorm: 220419 1 Tablet(s) PO QD 07/20/201107/19 Inactive Premarin 1.25 mg tablet RxNorm: 245384 2 Tablet(s) PO QD 07/20/2011 0 01/21/2019 Inactive Premarin 1.25 mg tablet RxNorm: 589724 1-2 Tablet(s) PO QD 07/20/20 11 12/16/2011 Inactive Premarin 1.25 mg Tab RxNorm: 277856 1-2 Tablet(s) PO QD 07/06/2011 Inactive alprazolam 0.5 mg Tab RxNorm: 649377 1 Tablet(s) PO BID 06/22/2011 Inactive prn alprazolam 0.5 mg Tab RxNorm: 909440 1 Tablet(s) PO BID 06/22/2011 Inactive prn Premarin 1.25 mg Tab RxNorm: 563133 1 Tablet(s) PO QD m ay do 90 day fill if desired 06/22/2011 07/05/2011 Inactive hydrocodone-acetaminophen 10 mg-325 mg Tab RxNorm: 4632282 1-2 T ablet(s) PO TID 06/22/2011 No Stop Date Active as needed for pain - Previous quantity #240, will start dosing for #180 in April 2011 per Doctor Td. clonidine 0.2 mg Tab RxNorm: 255479 1 Tablet(s) PO TID 05/25/201103/2011 Inactive triamterene-hydrochlorothiazide 75 mg-50 mg Tab RxNorm: 3108 18 1 Tablet(s) PO QD 05/25/2011 09/13/2011 Inactive alprazolam 0.5 mg Tab RxNorm: 107852 1 Tablet(s) PO BID 05/25/2011 Inactive prn hydrocodone-acetaminophen 10 mg-325 mg Tab RxNorm: 4704485 1-2 T ablet(s) PO TID 05/25/2011 No Stop Date Active as needed for pain - Previous quantity #240, will start dosing for #180 in April 2011 per Doctor Td. Robaxin-750 750 mg Tab RxNorm: 694671 2 Tablet(s) PO QHS 05/22/2011 1 Inactive prn spasm hydrocodone-acetaminophen 10 mg-325 mg Tab RxNorm: 1728860 1-2 T ablet(s) PO TID 04/26/2011 No Stop Date Active as needed for pain - Previous quantity #240, will start dosing for #180 in April 2011 per Doctor Td. alprazolam 0.5 mg Tab RxNorm: 494273 1 Tablet(s) PO BID 04/25/2011 Inactive prn Klor-Con 8 mEq Tab RxNorm: 139642 1 Tablet(s) PO QD 03/30/20112010 Inactive Klor-Con 8 mEq Tab RxNorm: 960851 1 Tablet(s) PO QD 03/29/20112010 Inactive hydrocodone-acetaminophen 10 mg-325 mg Tab RxNorm: 4869422 1-2 T ablet(s) PO TID 03/20/2011 04/25/2011 Inactive as needed for pain - Previous quantity #240, will start dosing for #180 in April 2011 per Doctor Td. alprazolam 0.5 mg Tab RxNorm: 744626 1 Tablet(s) PO BID prn 011 03/30/2011 Inactive Ambien 10 mg Tab RxNorm: 375898 1 Tablet(s) PO QHS 03/01/2011 011 Inactive cyclobenzaprine 10 mg Tab RxNorm: 559367 1 Tablet(s) PO TID 011 03/18/2012 Inactive cyclobenzaprine 10 mg Tab RxNorm: 496650 1 Tablet(s) PO TID 011 01/08/2011 Inactive cyclobenzaprine 10 mg Tab RxNorm: 973233 1 Tablet(s) PO TID 011 12/20/2010 Inactive terbinafine 250 mg Tab RxNorm: 412663 1 Tablet(s) PO QD 12/12/2010 Inactive triamterene-hydrochlorothiazide 75 mg-50 mg Tab RxNorm: 3108 18 1 Tablet(s) PO QD 12/07/2010 06/04/2011 Inactive Klor-Con 8 8 mEq Tab RxNorm: 557022 1 Tablet(s) PO QD 12/07/201001/08 Inactive Premarin 1.25 mg Tab RxNorm: 256104 2 Tablet(s) PO QD 12/07/201001/08 Inactive clonidine 0.2 mg Tab RxNorm: 185584 1 Tablet(s) PO TID 12/07/2010 Inactive hydrocodone-acetaminophen 7.5 mg-650 mg Tab RxNorm: 761007 1 Ta blet(s) PO Q4H 12/05/2010 01/21/2019 Inactive hydrocodone-acetaminophen 7.5 mg-650 mg Tab RxNorm: 951131 1 Ta blet(s) PO Q4H 10/26/2010 11/14/2010 Inactive hydrocodone-acetaminophen 7.5 mg-650 mg Tab RxNorm: 173871 1 Ta blet(s) PO Q4H 10/13/2010 10/25/2010 Inactive hydrocodone-acetaminophen 7.5 mg-650 mg Tab RxNorm: 227103 1 Ta blet(s) PO Q4H 09/15/2010 09/12/2010 Inactive alprazolam 0.5 mg Tab RxNorm: 028140 1 Tablet(s) PO BID prn 011 09/12/2010 Inactive terbinafine 250 mg Tab RxNorm: 051240 1 Tablet(s) PO QD 09/05/2010 Inactive hydrocodone-acetaminophen 7.5 mg-650 mg Tab RxNorm: 311013 1 Ta blet(s) PO Q4H 08/29/2010 09/17/2010 Inactive alprazolam 0.5 mg Tab RxNorm: 840243 1 Tablet(s) PO BID prn 010 09/27/2010 Inactive alprazolam 0.5 mg Tab RxNorm: 622299 1 Tablet(s) PO BID prn 010 09/06/2010 Inactive Klor-Con 8 mEq Tab RxNorm: 179278 1 Tablet(s) PO QD 08/08/20102010 Inactive hydrocodone-acetaminophen 7.5 mg-650 mg Tab RxNorm: 494739 1 Ta blet(s) PO Q4H 08/08/2010 08/27/2010 Inactive Ambien 10 mg Tab RxNorm: 229843 1 Tablet(s) PO QHS 08/08/2010 010 Inactive clonidine 0.2 mg Tab RxNorm: 962540 1 Tablet(s) PO TID 08/08/2010 Inactive Premarin 1.25 mg Tab RxNorm: 160034 2 Tablet(s) PO QD 08/08/201009/12 Inactive Ambien 10 mg Tab RxNorm: 492071 1 Tablet(s) PO QHS 07/18/2010 Inactive alprazolam 0.5 mg Tab RxNorm: 299221 1 Tablet(s) PO BID prn 08/07/2010 Inactive hydrocodone-acetaminophen 7.5 mg-650 mg Tab RxNorm: 163492 1 Ta blet(s) PO Q4H 07/12/2010 07/31/2010 Inactive clonidine 0.2 mg Tab RxNorm: 010595 1 Tablet(s) PO TID 06/20/2010 Inactive terbinafine 250 mg Tab RxNorm: 742842 1 Tablet(s) PO QD 05/24/2010 Inactive Clonidine 0.2 mg Tab RxNorm: 940826 1 Tablet(s) PO TID 05/24/201006/2010 Inactive Ambien 10 mg Tab RxNorm: 346865 1 Tablet(s) PO QHS 05/24/2010 Inactive alprazolam 0.5 mg Tab RxNorm: 691539 1 Tablet(s) PO BID 05/24/2010 Inactive Klor-Con 8 mEq Tab RxNorm: 477193 1 Tablet(s) PO QD 05/24/20102009 Inactive alprazolam 0.5 mg Tab RxNorm: 644607 2 Tablet(s) PO QD prn 05/24/20 10 07/17/2010 Inactive triamterene-hydrochlorothiazide 75 mg-50 mg Tab RxNorm: 3108 18 1 Tablet(s) PO QD 05/24/2010 11/19/2010 Inactive Ambien 10 mg Tab RxNorm: 868273 1 Tablet(s) PO QHS 05/23/2010 Inactive Alprazolam 0.5 mg Tab RxNorm: 221389 2 Tablet(s) PO QD prn 05/23/20 10 05/23/2010 Inactive Premarin 1.25 mg Tab RxNorm: 046956 2 Tablet(s) PO QD 05/19/201007/12 Inactive Hydrocodone-Acetaminophen 7.5 mg-650 mg Tab RxNorm: 235262 1 Ta blet(s) PO Q4H 05/19/2010 03/20/2011 Inactive Prednisone 20 mg Tab RxNorm: 682277 1 Tablet(s) PO BID 05/17/2010 Inactive Prednisone 20 mg Tab RxNorm: 244080 1 Tablet(s) PO BID 05/06/201001/2010 Inactive Premarin 1.25 mg Tab RxNorm: 125530 Tablet(s) PO 2 M-W-F, and 1 Pv-Pt-Bkv-Sun 05/05/2010 08/02/2010 Inactive Premarin 1.25 mg Tab RxNorm: 016465 Tablet(s) PO 2 M-W-F, and 1 Vu-Ul-Rmr-Sun 05/04/2010 05/04/2010 Inactive Premarin 1.25 mg Tab RxNorm: 287830 Tablet(s) PO 2 M-W-F, and 1 Vl-Ia-Omz-Sun 05/04/2010 05/03/2010 Inactive Prednisone 20 mg Tab RxNorm: 064189 1 Tablet(s) PO BID 04/27/2010 Inactive Alprazolam 0.5 mg Tab RxNorm: 214142 2 Tablet(s) PO QD prn 04/26/20 10 05/22/2010 Inactive Clindamycin 300 mg Cap RxNorm: 280406 2 Capsule(s) PO TID 04/05/2010 04/18/2010 Inactive Terbinafine 250 mg Tab RxNorm: 279215 1 Tablet(s) PO QD 04/04/2010 Inactive Hydrocodone-Acetaminophen 7.5 mg-650 mg Tab RxNorm: 479671 1 Ta blet(s) PO Q4H 03/30/2010 04/18/2010 Inactive Avelox 400 mg Tab RxNorm: 399799 1 Tablet(s) PO QD 03/09/2010 010 Inactive Hydrocodone-Acetaminophen 7.5 mg-650 mg Tab RxNorm: 714886 1 Ta blet(s) PO Q4H 03/08/2010 03/27/2010 Inactive Alprazolam 0.5 mg Tab RxNorm: 388275 2 Tablet(s) PO QD prn 03/08/20 10 04/25/2010 Inactive Klor-Con 8 mEq Tab RxNorm: 982134 1 Tablet(s) PO QD when takes lasi x 03/07/2010 09/29/2019 Inactive Premarin 1.25 mg Tab RxNorm: 319901 1 Tablet(s) PO QD 03/03/201003/11 Inactive Alprazolam 0.5 mg Tab RxNorm: 588710 1 Tablet(s) PO BID PRN 010 No Stop Date Active triamterene-hydrochlorothiazide 75 mg-50 mg Tab RxNorm: 3108 18 1 Tablet(s) PO QD 02/09/2010 02/03/2011 Inactive Hydrocodone-Acetaminophen 10 mg-750 mg Tab RxNorm: 957935 1 Tablet(s) PO Q4H PRN 02/09/2010 03/20/2011 Inactive Clonidine 0.2 mg Tab RxNorm: 834798 1 Tablet(s) PO TID 01/13/201009/2009 Inactive Alprazolam 0.5 mg Tab RxNorm: 307847 1 Tablet(s) PO BID PRN 010 01/12/2010 Inactive Hydrocodone-Acetaminophen 10 mg-750 mg Tab RxNorm: 497871 1 Tablet(s) PO Q4H PRN 01/13/2010 01/12/2010 Inactive ANGELIQ 1 mg-0.5 mg Tab RxNorm: 0004966 1 Tablet(s) PO QD 12/27/2009 01/23/2010 Inactive Lasix 40 mg Tab RxNorm: 114885 1 Tablet(s) PO QAM 12/14/2009 06/11/20 10 Inactive Vitamin B12 1000mcg Tablet RxNorm: 1 Tablet(s) PO QD No Start Date Active cyclobenzaprine 10 mg tablet RxNorm: 797987 1 Tablet(s) PO TID as needed DO NOT USE WITH BACLOFEN No Start Date Active Vitamin D 5,000 unit Tab RxNorm: 1 Tablet(s) PO QD No Start Date Active vitamin E (dl, acetate) 400 unit Cap RxNorm: 271193 1 Capsule(s ) PO QD No Start Date Active Benadryl 25 mg Cap RxNorm: 3457212 Capsule(s) PO PRN No Start Date Inactive amitriptyline 100 mg tablet RxNorm: 934743 1 Tablet(s) PO QHS No St art Date 11/27/2016 Inactive Zithromax Z-Dustin 250 mg tablet RxNorm: 509358 Tablet(s) PO as di rected No Start Date 07/22/2013 Inactive Klor-Con 8 mEq tablet,extended release RxNorm: 763949 1 Tablet( s) PO BID No Start Date 07/28/2012 Inactive scopolamine 1.5 mg 72 hr Transderm Patch RxNorm: 355166 Application TD Q72H for motion sickness No Start Date 05/25/2013 Inactive Klonopin 1 mg tablet RxNorm: 372371 1-2 Tablet(s) PO QHS as nee ded for sleep No Start Date 06/20/2015 Inactive Klor-Con M20 mEq tablet,extended release RxNorm: 929512 2 Tablet(s) PO BID to use with lasix No Start Date 11/11/2013 Inactive Bystolic 5 mg tablet RxNorm: 424281 1 Tablet(s) PO QD No Start Date 1 Inactive Bystolic 10 mg tablet RxNorm: 262766 1 Tablet(s) PO BID No Start Da te 07/06/2015 Inactive Premarin 1.25 mg Tab RxNorm: 842771 Tablet(s) PO 2 --, and 1 Fm-Rz-Zyr-Sun No Start Date 05/03/2010 Inactive baclofen 20 mg tablet RxNorm: 153480 1 Tablet(s) PO TID as needed for muscle spasm No Start Date 07/22/2015 Inactive hydrocodone-acetaminophen 7.5 mg-650 mg Tab RxNorm: 011054 1 Tablet(s) PO Q4H as needed for pain No Start Date 03/20/2011 Inactive albuterol sulfate 1.25 mg/3 mL Neb Solution RxNorm: 491519 1 Unit Dose INH Q4H 2boxes No Start Date 09/06/2015 Inactive Butrans 20 mcg/hour Transderm Patch RxNorm: 724830 1 TD WEEKLY apply to skin weekly after removing previous. No Start Date 07/22/2013 Inactive Medrol (Dustin) 4 mg tablets in a dose pack RxNorm: 420722 Tablet(s) PO As Directed No Start Date 07/30/2016 Inactive hydrocodone-acetaminophen 10 mg-325 mg Tab RxNorm: 1757912 1-2 Tablet(s) PO TID as needed for pain No Start Date 03/19/2011 Inactive Klonopin 1 mg tablet RxNorm: 328862 1 Tablet(s) PO QHS No Start Date 02/28/2016 Inactive honey topical RxNorm: topical No Start Date 06/16/2018 Inactive Clonidine 0.2 mg Tab RxNorm: 394345 1 Tablet(s) PO TID No Start Date 01/12/2010 Inactive ketorolac 10 mg tablet RxNorm: 817509 1 Tablet(s) PO Q8H No Start D ate 03/18/2012 Inactive as needed for headache Singulair 10 mg Tab RxNorm: 143733 1 Tablet(s) PO QD No Start Date Inactive Premarin 1.25 mg Tab RxNorm: 728569 1 Tablet(s) PO QD No Start Date 1 Inactive Flonase 50 mcg/Actuation Nasal Shirley RxNorm: 8089339 1 Shirley CECELIA AL BID No Start Date 03/18/2012 Inactive Terbinafine 250 mg Tab RxNorm: 017795 1 Tablet(s) PO QD No Start Da te 04/03/2010 Inactive Fexofenadine 180 mg Tab RxNorm: 5414325 1 Tablet(s) PO QD No Start Date 09/06/2015 Inactive baclofen 20 mg tablet RxNorm: 171074 1 Tablet(s) PO TID as needed N o Start Date 05/25/2014 Inactive Diovan 160 mg Tab RxNorm: 760929 1 Tablet(s) PO QD No Start Date 09/12 Inactive mupirocin 2 % topical ointment RxNorm: 898910 1 Application TOP QID No Start Date 04/25/2016 Inactive ZOFRAN ODT 4 mg Tab, Rapid Dissolve RxNorm: 380415 1 Tablet(s) PO Q4H No Start Date 03/18/2012 Inactive as needed for nausea and vomiting Alprazolam 0.5 mg Tab RxNorm: 950459 1 Tablet(s) PO BID PRN No Star t Date 01/12/2010 Inactive cyclobenzaprine 10 mg tablet RxNorm: 960859 1 Tablet(s) PO TID as needed for muscle spasm No Start Date 10/08/2017 Inactive Albuterol 0.083% Aerosol Solution RxNorm: 1 Appl ication INH Q4H Use one ampule every 4 hrs with nebulizer as needed for shortness of breath. No Start Date 10/09/2010 Inactive lorazepam 1 mg tablet RxNorm: 648294 1 1/2 Tablet(s) PO QHS No Star t Date 02/02/2016 Inactive Melatonin 3 mg Tab RxNorm: 851297 Tablet(s) PO PRN No Start Date 07/11 Inactive Medrol (Dustin) 4 mg Tabs in a Dose Pack RxNorm: 080257 Tablet(s) PO N o Start Date 11/28/2010 Inactive lorazepam 1 mg tablet RxNorm: 222491 1 Tablet(s) PO QHS as need ed for sleep No Start Date 01/30/2016 Inactive hydrocodone-acetaminophen 10 mg-325 mg Tab RxNorm: 5214869 1-2 Tablet(s) PO QID as needed for severe pain No Start Date 03/24/2012 Inactive celecoxib 200 mg capsule RxNorm: 963647 1 Capsule(s) PO BID No Star t Date 06/26/2019 Inactive amlodipine 5 mg-benazepril 20 mg capsule RxNorm: 231154 1 Capsu le(s) PO QD No Start Date 04/10/2017 Inactive Bystolic 20 mg tablet RxNorm: 394268 1/2 Tablet(s) PO QAM No Start Date 01/23/2016 Inactive Bystolic 20 mg tablet RxNorm: 166745 1 Tablet(s) PO QAM No Start Da te 04/25/2016 Inactive Ambien 10 mg Tab RxNorm: 441393 1 Tablet(s) PO QHS No Start Date 05/11 Inactive Klor-Con 8 mEq Tab RxNorm: 109464 1 Tablet(s) PO QD when takes lasix No Start Date 03/06/2010 Inactive aspirin 81 mg tablet RxNorm: 315236 1 Tablet(s) PO QD No Start Date 0 01/29/2018 Inactive hydrocodone-acetaminophen 10 mg-325 mg Tab RxNorm: 3481598 1-2 T ablet(s) PO QID No Start Date 01/10/2012 Inactive Bystolic 10 mg tablet RxNorm: 458652 1 Tablet(s) PO QAM take one daily in the morning. No Start Date 05/28/2013 Inactive nystatin 100,000 unit/mL Oral Susp RxNorm: 869067 5 Milliliter( s) PO QID No Start Date 03/18/2012 Inactive swish and spit scopolamine 1.5 mg 72 hr Transderm Patch RxNorm: 630512 1 Unit Dose TD Q72H for motion sickness No Start Date 12/23/2013 Inactive Hydrocodone-Acetaminophen 10 mg-750 mg Tab RxNorm: 111974 1 Tablet(s) PO Q4H PRN No Start Date 01/12/2010 Inactive Soma 350 mg tablet RxNorm: 189615 1 Tablet(s) PO TID as needed for spasm No Start Date 01/12/2013 Inactive baclofen 10 mg tablet RxNorm: 704189 1 Tablet(s) PO TID as needed for muscle spasm No Start Date 09/18/2019 Inactive Soma 350 mg Tab RxNorm: 952912 1 Tablet(s) PO TID for spasm No Star t Date 01/31/2012 Inactive Co Q-10 400 mg capsule RxNorm: 746107 1 Capsule(s) PO QD No Start D ate 01/21/2019 Inactive nystatin 100,000 unit/gram topical cream RxNorm: 242183 Applica tion TOP BID No Start Date 03/22/2015 Inactive Exforge 5 mg-160 mg Tab RxNorm: 979280 1 Tablet(s) PO QD No Start D ate 10/09/2010 Inactive Hydrocodone-Acetaminophen 7.5 mg-650 mg Tab RxNorm: 485633 1 Ta blet(s) PO Q4H No Start Date 03/07/2010 Inactive Robaxin-750 750 mg Tab RxNorm: 901105 1-2 Tablet(s) PO TID prn spasm No Start Date 05/21/2011 Inactive amlodipine 5 mg tablet RxNorm: 570722 1 Tablet(s) PO QHS No Start D ate 09/29/2015 Inactive oxycodone-acetaminophen 10 mg-325 mg tablet RxNorm: 1369151 1-2 Tablet(s) PO Q6H No Start Date 06/16/2018 Inactive Triamterene-Hydrochlorothiazide 75 mg-50 mg Tab RxNorm: 3108 18 1 Tablet(s) PO QD No Start Date 02/08/2010 Inactive Alprazolam 0.5 mg Tab RxNorm: 935278 2 Tablet(s) PO QD prn No Start Date 03/07/2010 Inactive Bystolic 20 mg tablet RxNorm: 416800 1 Tablet(s) PO QAM No Start Da te 08/17/2015 Inactive ketorolac 10 mg tablet RxNorm: 559193 1 Tablet(s) PO QID prn he adache No Start Date 07/17/2012 Inactive acyclovir 800 mg Tab RxNorm: 733848 1 Tablet(s) PO BID No Start Date 03/18/2012 Inactive duloxetine 60 mg capsule,delayed release RxNorm: 327412 1 Capsu le(s) PO QD No Start Date 09/29/2015 Inactive Norvasc 5 mg tablet RxNorm: 096339 1 Tablet(s) PO QHS No Start Date 1 10/18/2014 Inactive promethazine 25 mg tablet RxNorm: 071896 1 Tablet(s) PO Q8H use sparingly No Start Date 07/22/2013 Inactive alprazolam 0.5 mg tablet RxNorm: 804177 3 Tablet(s) PO QHS No Start Date 06/06/2015 Inactive Lunesta 3 mg tablet RxNorm: 939113 1 Tablet(s) PO QHS No Start Date 0 09/20/2017 Inactive hydrocodone-acetaminophen 10 mg-325 mg Tab RxNorm: 7853764 1-2 Tablet(s) PO TID as needed for pain No Start Date 12/10/2011 Inactive Coricidin HBP Cough & Cold 4 mg-30 mg Tab RxNorm: 9386765 Tablet (s) PO PRN No Start Date 10/09/2010 Inactive Bactroban 2 % Ointment RxNorm: 577594 Application TOP QID to so res No Start Date 02/22/2012 Inactive Flonase 50 mcg/actuation Nasal [place] RxNorm: 309309 2 [place] QHS No Start Date 03/03/2014 Inactive Medication Administered No Medication Administered data Immunizations Vaccine Codes Date Status Tetanus, Diptheria, Pertussis CVX: 115 02/27/2014 Results Observation Observation Code Item Item Code Result Date S ervice Location COMPREHENS[facility] METABOLIC 96196 AST 15 U/L 2019 Unknown [facility] 35471 ALT 13 U/L 2019 Unknown [facility] 08703 BUN 12 mg/dL 2019 Unknown [facility] 19124 ALBUMIN 3.9 g/dL 2019 Unknown [facility] 56308 CHLORIDE 97 mmol/L 2019 Unknown COMPREHENSIVE METABOLIC 90436 Bili Total 0.4 mg/dL 09/29 Unknown COMPREHENSIVE METABOLIC 03096 ALK PHOS 130 U/L 2019 Unknown COMPREH[facility] MET[facility]OL[facility] 70333 SODIUM 136 mmol/L 09/29 Unknown COMPREHENSIVE METABOLIC 92133 CREATININE 0.92 mg/dL 09/11 Unknown [facility] 10522 CALCIUM 9.1 mg/dL 2019 Unknown [facility] 90076 POTASSIUM 4.4 mmol/L 09/29 Unknown COMPREHENS[facility] METABOLIC 58843 Total Protein 6.2 g/dL Unknown COMPREHENS[facility] MET[facility]OLIC 87559 Glucose 391 mg/dL 2019 Unknown [facility]OL[facility] 41696 Bicarbonate 30 mmol/L 09/11 Unknown COMPREHENSIVE METABOLIC 45934 AGAP 9 mmol/L 2019 Unknown MEAN GLUC 5843220 Calc Mean Gluc 332 mg/dL 09/29/2019 Unkn own COMPLETE BLOOD COUNT 1657110 WBC 7.0 10e9/L 09/29/19 Unknown COMPLETE BLOOD COUNT 8857698 RBC 4.69 10e12/L 2019 Unknown COMPLETE BLOOD COUNT 5886352 HEMOGLOBIN 14.6 g/dL 09/29/19 Unknown COMPLETE BLOOD COUNT [id number] HEMATOCRIT 45.2 % 09/29/19 Unknown COMPLETE BLOOD COUNT [id number] MCV 96.4 fL 0 Unknown COMPLETE BLOOD COUNT 6753078 MCH 31.1 pg 0 Unknown COMPLETE BLOOD COUNT 1655515 MCHC 32.3 g/dL 0 Unknown COMPLETE BLOOD COUNT 0766149 PLATELET COUNT 209 10e9/L Unknown COMPLETE BLOOD COUNT 4921908 Mean Plt Volume 9.8 fL Unknown COMPLETE BLOOD COUNT 6140337 Neut Auto 48.1 % 0 Unknown COMPLETE BLOOD COUNT 0918913 Lymph Auto 36.5 % 09/29/19 Unknown COMPLETE BLOOD COUNT [id number] [place] Auto 8.6 % 0 Unknown COMPLETE BLOOD COUNT 3210024 RDW 13.4 % 0 Unknown COMPLETE BLOOD COUNT 5968047 Eos Auto 6.5 % 0 Unknown COMPLETE BLOOD COUNT 2265123 Baso Auto 0.3 % 0 Unknown COMPLETE BLOOD COUNT [id number] Neutrophil Abs 3.37 10e9/L Unknown COMPLETE BLOOD COUNT 1976846 Lymphocyte Abs 2.56 10e9/L Unknown COMPLETE BLOOD COUNT 2020713 Monocyte Abs 0.60 10e9/L 09/11 Unknown COMPLETE BLOOD COUNT [id number] Eosinophil Abs 0.46 10e9/L Unknown COMPLETE BLOOD COUNT 7154112 RDW-SD 45.9 fL 0 Unknown COMPLETE BLOOD COUNT [id number] Basophil Abs 0.02 10e9/L 09/11 Unknown LIPID GROUP 02609 Cholesterol 248 mg/dL 09/29/2019 Unkno wn LIPID GROUP 16774 Triglyceride 898 mg/dL 09/29/2019 Unkn own LIPID GROUP 89886 HDL CHOLESTEROL 41 mg/dL 09/29/2019 U nknown LIPID GROUP 30470 Chol/HDL Ratio 6.05 ratio 09/29/2019 U nknown LIPID GROUP 24546 NON-HDL Chol 207 mg/dL 09/29/2019 Unkn own LIPID GROUP 51358 LDL Cholesterol N/A Trig >400 020 Unknown GLYCOSYLATED HEMOGLOBIN TEST 97113 Hgb A1c 58053-8 13.2 % 0 09/29/2019 Unknown FREE T4 02763 T4 Free 0.75 ng/dL 09/29/2019 Unknown GFR CALC 4832253 GFR Non Afr Amr >60 mL/min 09/29/2019 Un known GFR CALC 5748335 GFR Afr Amr >60 mL/min 09/29/2019 Unknow n THYROID STIMULATING HORMONE 91120 TSH 4.245 uIU/mL 09/29/2019 Unknown COMPLETE BLOOD COUNT 3654356 WBC 10.7 10e9/L 018 Unknown COMPLETE BLOOD COUNT 6337216 RBC 4.59 10e12/L 2017 Unknown COMPLETE BLOOD COUNT 0185955 HEMOGLOBIN 14.8 g/dL 12/11/19 18 Unknown COMPLETE BLOOD COUNT 6601365 HEMATOCRIT 44.9 % 12/11/19 18 Unknown COMPLETE BLOOD COUNT 6939887 MCV 97.8 fL 8 Unknown COMPLETE BLOOD COUNT 9567356 MCH 32.2 pg 8 Unknown COMPLETE BLOOD COUNT 2759268 MCHC 33.0 g/dL 8 Unknown COMPLETE BLOOD COUNT 4267327 PLATELET COUNT 261 10e9/L 10/2017 Unknown COMPLETE BLOOD COUNT 5043222 Mean Plt Volume 9.5 fL 10/2017 Unknown COMPLETE BLOOD COUNT 9047589 Neut Auto 59.9 % 8 Unknown COMPLETE BLOOD COUNT 5126676 Lymph Auto 27.4 % 12/11/19 18 Unknown COMPLETE BLOOD COUNT 0854009 [place] Auto 8.2 % 8 Unknown COMPLETE BLOOD COUNT 1861148 RDW 13.3 % 8 Unknown COMPLETE BLOOD COUNT 5780561 Eos Auto 4.1 % 8 Unknown COMPLETE BLOOD COUNT 9042437 Baso Auto 0.4 % 8 Unknown COMPLETE BLOOD COUNT 0662428 Neutrophil Abs 6.41 10e9/L Unknown COMPLETE BLOOD COUNT 3387153 Lymphocyte Abs 2.93 10e9/L Unknown COMPLETE BLOOD COUNT 9986857 Monocyte Abs 0.88 10e9/L 10/2017 Unknown COMPLETE BLOOD COUNT [id number] Eosinophil Abs 0.44 10e9/L Unknown COMPLETE BLOOD COUNT 3507306 RDW-SD 46.2 fL 8 Unknown COMPLETE BLOOD COUNT 3255874 Basophil Abs 0.04 10e9/L 10/2017 Unknown THYROID STIMULATING HORMONE 19687 TSH 4.015 uIU/mL 12/10/2017 Unknown COMPREHENSIVE METABOLIC 57863 AST 25 U/L 2017 Unknown COMPREHENSIVE METABOLIC 62230 ALT 17 U/L 2017 Unknown COMPREHENSIVE METABOLIC 22505 BUN 19 mg/dL 2017 Unknown COMPREHENSIVE METABOLIC 06225 ALBUMIN 4.0 g/dL 2017 Unknown COMPREHENSIVE METABOLIC 29614 CHLORIDE 91 mmol/L 2017 Unknown COMPREHENSIVE METABOLIC 82897 Bili Total 0.5 mg/dL 12/10 Unknown COMPREHENSIVE METABOLIC 95535 ALK PHOS 75 U/L 2017 Unknown COMPREHENSIVE METABOLIC 52883 SODIUM 136 mmol/L 12/10 Unknown COMPREHENSIVE METABOLIC 71368 CREATININE 1.05 mg/dL 10/2017 Unknown COMPREHENSIVE METABOLIC 47431 CALCIUM 8.9 mg/dL 2017 Unknown COMPREHENSIVE METABOLIC 16624 POTASSIUM 3.4 mmol/L 12/10 Unknown COMPREHENSIVE METABOLIC 23538 Total Protein 6.5 g/dL Unknown COMPREHENSIVE METABOLIC 25483 Glucose 138 mg/dL 2017 Unknown COMPREHENSIVE METABOLIC 87468 Bicarbonate 35 mmol/L 10/2017 Unknown COMPREHENSIVE METABOLIC 48019 AGAP 10 mmol/L 2017 Unknown MEAN GLUC 9560060 Calc Mean Gluc 171 mg/dL 12/10/2017 Unkn own LIPID GROUP 62112 Cholesterol 204 mg/dL 12/10/2017 Unkno wn LIPID GROUP 00271 Triglyceride 411 mg/dL 12/10/2017 Unkn own LIPID GROUP 66225 HDL CHOLESTEROL 50 mg/dL 12/10/2017 U nknown LIPID GROUP 57101 Chol/HDL Ratio 4.08 ratio 12/10/2017 U nknown LIPID GROUP 03895 NON-HDL Chol 154 mg/dL 12/10/2017 Unkn own LIPID GROUP 69409 LDL Cholesterol N/A Trig >400 018 Unknown GLYCOSYLATED HEMOGLOBIN TEST 09889 Hgb A1c 54343-0 7.6 % 0 12/10/2017 Unknown FREE T4 97240 T4 Free 1.40 ng/dL 12/10/2017 Unknown GFR CALC 9883305 GFR Non Afr Amr 55 mL/min 12/10/2017 Unk nown GFR CALC 1047328 GFR Afr Amr >60 mL/min 12/10/2017 Unknow n GFR CALC 0646333 GFR Non Afr Amr 48 mL/min 06/28/2017 Unk nown GFR CALC 2462190 GFR Afr Amr 59 mL/min 06/28/2017 Unknown COMPREHENSIVE METABOLIC 33223 AST 32 U/L 2016 Unknown COMPREHENSIVE METABOLIC 02939 ALT 22 U/L 2016 Unknown COMPREHENSIVE METABOLIC 04501 BUN 23 mg/dL 2016 Unknown COMPREHENSIVE METABOLIC 54483 ALBUMIN 4.7 g/dL 2016 Unknown COMPREHENSIVE METABOLIC 66488 CHLORIDE 89 mmol/L 2016 Unknown COMPREHENSIVE METABOLIC 17876 Bili Total 0.5 mg/dL 06/28 Unknown COMPREHENSIVE METABOLIC 86538 ALK PHOS 90 U/L 2016 Unknown COMPREHENSIVE METABOLIC 25254 SODIUM 135 mmol/L 06/28 Unknown COMPREHENSIVE METABOLIC 73372 CREATININE 1.18 mg/dL 06/10 Unknown COMPREHENSIVE METABOLIC 79669 CALCIUM 9.7 mg/dL 2016 Unknown COMPREHENSIVE METABOLIC 38189 POTASSIUM 3.5 mmol/L 06/28 Unknown COMPREHENSIVE METABOLIC 80702 Total Protein 7.7 g/dL Unknown COMPREHENSIVE METABOLIC 60831 Glucose 129 mg/dL 2016 Unknown COMPREHENSIVE METABOLIC 44886 Bicarbonate 34 mmol/L 06/10 Unknown COMPREHENSIVE METABOLIC 13411 AGAP 12 mmol/L 2016 Unknown LIP[facility] GROUP 26892 HDL TEST 64 MG/DL 08/27/2014 Unknown L[facility] GROUP 14149 TRIG 222 MG/DL 08/27/2014 Unknown L[facility] GROUP 60011 TEST LDL 209 MG/DL 08/27/2014 Unknown LIP[facility] GROUP 42707 CHOL 317 MG/DL 08/27/2014 Unknown L[facility] GROUP 44324 RCHOL/HDL 4.95 RATIO 08/27/2014 Unknow n LIPID GROUP 15784 NON-HDL CH 253 MG/DL 08/27/2014 Unknow n GFR CALC 8465126 GFR AA >60 ML/MIN 08/27/2014 Unknown GFR CALC 9522980 GFR NON-AA >60 ML/MIN 08/27/2014 Unknown COMPLETE BLOOD COUNT 8907168 WBC 7.0 10e9/L 08/27/20 14 Unknown COMPLETE BLOOD COUNT 6493549 RBC 4.98 10e12/L 2013 Unknown COMPLETE BLOOD COUNT 3750347 HGB 15.6 g/dL 4 Unknown COMPLETE BLOOD COUNT 8726939 HCT DET 46.5 % 4 Unknown COMPLETE BLOOD COUNT 4318689 MCV 93.4 fL 4 Unknown COMPLETE BLOOD COUNT 0721066 MCH 31.3 pg 4 Unknown COMPLETE BLOOD COUNT 3953462 MCHC 33.5 g/dL 4 Unknown COMPLETE BLOOD COUNT 5349073 PLT 309 10e9/L 08/27/20 14 Unknown COMPLETE BLOOD COUNT 7675715 MPV 9.6 fL 4 Unknown COMPLETE BLOOD COUNT 6113006 CADEN % 57.2 % 4 Unknown COMPLETE BLOOD COUNT 7186796 LY % 33.2 % 4 Unknown COMPLETE BLOOD COUNT 8398900 MON % 7.3 % 4 Unknown COMPLETE BLOOD COUNT 8802152 EOS % 2.0 % 4 Unknown COMPLETE BLOOD COUNT 5935836 BASO % 0.3 % 4 Unknown COMPLETE BLOOD COUNT 5402480 RDW 13.7 % 4 Unknown COMPLETE BLOOD COUNT 7771865 ABS CADEN 4.00 10e9/L 014 Unknown COMPLETE BLOOD COUNT 6656469 ABS LYMPH 2.32 10e9/L 014 Unknown COMPLETE BLOOD COUNT 5718670 ABS MONO 0.51 10e9/L 014 Unknown COMPLETE BLOOD COUNT 7764057 ABS EOS 0.14 10e9/L 014 Unknown COMPLETE BLOOD COUNT 4405776 ABS BASO 0.02 10e9/L 014 Unknown COMPLETE BLOOD COUNT 9935704 RDW-SD 45.1 fL 4 Unknown COMPREHENSIVE METABOLIC 95487 AST 13 U/L 2013 Unknown COMPREHENSIVE METABOLIC 19564 ALT 11 IU/L 2013 Unknown COMPREHENSIVE METABOLIC 08377 BUN 23 MG/DL 2013 Unknown COMPREHENSIVE METABOLIC 10953 ALBUMIN 4.4 GM/DL 2013 Unknown COMPREHENSIVE METABOLIC 06944 CHLORIDE 99 MMOL/L 2013 Unknown COMPREHENSIVE METABOLIC 64613 BILI TOT 0.5 MG/DL 2013 Unknown COMPREHENSIVE METABOLIC 12582 ALK PHOS 56 U/L 2013 Unknown COMPREHENSIVE METABOLIC 74595 SODIUM 138 MMOL/L 08/27 Unknown COMPREHENSIVE METABOLIC 75873 CREATININE 0.95 MG/DL 08/10 Unknown COMPREHENSIVE METABOLIC 28178 CALCIUM 9.8 MG/DL 2013 Unknown COMPREHENSIVE METABOLIC 90767 POTASSIUM 3.5 MMOL/L 08/27 Unknown COMPREHENSIVE METABOLIC 25275 PROT TOT 6.8 GM/DL 2013 Unknown COMPREHENSIVE METABOLIC 23456 Glucose 90 MG/DL 2013 Unknown COMPREHENSIVE METABOLIC 92499 BICARB 34 MMOL/L 2013 Unknown COMPREHENSIVE METABOLIC 96743 ANION GAP 5 MEQ/L 2013 Unknown LIPASE 09497 LIPASE 11 IU/L 07/21/2014 Unknown AMYLASE 18640 AMYLASE 39 IU/L 07/21/2014 Unknown HEMOGLOBIN A1C (GLYCOSYLATED) 8103944 A1C HPLC 23817-1 6.2 % 03/05/2013 Unknown THYROID STIMULATING HORMONE 71638 TSH 6.986 uIU/ML 03/05/2013 Unknown COMPLETE BLOOD COUNT 7458188 WBC 12.7 10e9/L 013 Unknown COMPLETE BLOOD COUNT 7173512 RBC 4.53 10e12/L 2012 Unknown COMPLETE BLOOD COUNT 3823717 HGB 14.7 g/dL 3 Unknown COMPLETE BLOOD COUNT 3915186 HCT DET 43.1 % 3 Unknown COMPLETE BLOOD COUNT 8866109 MCV 95.1 fL 3 Unknown COMPLETE BLOOD COUNT 1994290 MCH 32.5 pg 3 Unknown COMPLETE BLOOD COUNT 9348069 MCHC 34.1 g/dL 3 Unknown COMPLETE BLOOD COUNT 2599942 PLT 346 10e9/L 03/05/20 13 Unknown COMPLETE BLOOD COUNT 5206176 MPV 9.5 fL 3 Unknown COMPLETE BLOOD COUNT 1673654 CADEN % 67.6 % 3 Unknown COMPLETE BLOOD COUNT 4355403 LY % 22.1 % 3 Unknown COMPLETE BLOOD COUNT 7682266 MON % 6.6 % 3 Unknown COMPLETE BLOOD COUNT 6853606 EOS % 3.3 % 3 Unknown COMPLETE BLOOD COUNT 9297014 BASO % 0.4 % 3 Unknown COMPLETE BLOOD COUNT 0282664 RDW 14.0 % 3 Unknown COMPLETE BLOOD COUNT 2118324 ABS CADEN 8.59 10e9/L 013 Unknown COMPLETE BLOOD COUNT 8161645 ABS LYMPH 2.81 10e9/L 013 Unknown COMPLETE BLOOD COUNT 3574497 ABS MONO 0.84 10e9/L 013 Unknown COMPLETE BLOOD COUNT 2917456 ABS EOS 0.42 10e9/L 013 Unknown COMPLETE BLOOD COUNT 1158593 ABS BASO 0.05 10e9/L 013 Unknown COMPLETE BLOOD COUNT 9516607 RDW-SD 46.0 fL 3 Unknown FREE T4 71684 FREE T4 1.14 NG/DL 03/05/2013 Unknown COMPREHENSIVE METABOLIC 29746 AST 17 U/L 2012 Unknown COMPREHENSIVE METABOLIC 72810 ALT 12 IU/L 2012 Unknown COMPREHENSIVE METABOLIC 07757 BUN 24 MG/DL 2012 Unknown COMPREHENSIVE METABOLIC 71872 ALBUMIN 4.2 GM/DL 2012 Unknown COMPREHENSIVE METABOLIC 29942 CHLORIDE 93 MMOL/L 2012 Unknown COMPREHENSIVE METABOLIC 71201 BILI TOT 0.5 MG/DL 2012 Unknown COMPREHENSIVE METABOLIC 84254 ALK PHOS 75 U/L 2012 Unknown COMPREHENSIVE METABOLIC 75757 SODIUM 141 MMOL/L 03/05 Unknown COMPREHENSIVE METABOLIC 65115 CREATININE 1.36 MG/DL 02/09 Unknown COMPREHENSIVE METABOLIC 07068 CALCIUM 9.2 MG/DL 2012 Unknown COMPREHENSIVE METABOLIC 38784 POTASSIUM 3.1 MMOL/L 03/05 Unknown COMPREHENSIVE METABOLIC 08784 PROT TOT 6.9 GM/DL 2012 Unknown COMPREHENSIVE METABOLIC 87084 Glucose 123 MG/DL 2012 Unknown COMPREHENSIVE METABOLIC 96096 BICARB 36 MMOL/L 2012 Unknown COMPREHENSIVE METABOLIC 93256 ANION GAP 12 MEQ/L 2012 Unknown GFR CALC 6089548 GFR AA 51.0L ML/MIN 03/05/2013 Unknow n GFR CALC 9530648 GFR NON-AA 42.0L ML/MIN 03/05/2013 Unkno wn COMPREHENSIVE METABOLIC 20570 AST 14 U/L 2012 Unknown COMPREHENSIVE METABOLIC 93828 ALT 11 IU/L 2012 Unknown COMPREHENSIVE METABOLIC 72303 BUN 16 MG/DL 2012 Unknown COMPREHENSIVE METABOLIC 38842 ALBUMIN 4.2 GM/DL 2012 Unknown COMPREHENSIVE METABOLIC 52259 CHLORIDE 98 MMOL/L 2012 Unknown COMPREHENSIVE METABOLIC 76757 BILI TOT 0.4 MG/DL 2012 Unknown COMPREHENSIVE METABOLIC 85554 ALK PHOS 77 U/L 2012 Unknown COMPREHENSIVE METABOLIC 93174 SODIUM 139 MMOL/L 09/25 Unknown COMPREHENSIVE METABOLIC 37555 CREATININE 0.86 MG/DL 09/10 Unknown COMPREHENSIVE METABOLIC 32618 CALCIUM 9.5 MG/DL 2012 Unknown COMPREHENSIVE METABOLIC 82025 POTASSIUM 3.8 MMOL/L 09/25 Unknown COMPREHENSIVE METABOLIC 68073 PROT TOT 6.8 GM/DL 2012 Unknown COMPREHENSIVE METABOLIC 15539 Glucose 91 MG/DL 2012 Unknown COMPREHENSIVE METABOLIC 95976 BICARB 32 MMOL/L 2012 Unknown COMPREHENSIVE METABOLIC 41542 ANION GAP 9 MEQ/L 2012 Unknown FREE T4 39728 FREE T4 0.98 NG/DL 09/25/2012 Unknown THYROID STIMULATING HORMONE 50375 TSH 1.736 uIU/ML 09/25/2012 Unknown C-REACTIVE PROTEIN (CRP) QUANT 15916 CRP 2.3 MG/DL 09/25/2012 Unknown COMPLETE BLOOD COUNT [id number] WBC 11.9 10e9/L 013 Unknown COMPLETE BLOOD COUNT 6396102 RBC 4.87 10e12/L 2012 Unknown COMPLETE BLOOD COUNT 4471242 HGB 15.1 g/dL 3 Unknown COMPLETE BLOOD COUNT 4022993 HCT DET 44.8 % 3 Unknown COMPLETE BLOOD COUNT 1735592 MCV 92.0 fL 3 Unknown COMPLETE BLOOD COUNT 0926034 MCH 31.0 pg 3 Unknown COMPLETE BLOOD COUNT 4466860 MCHC 33.7 g/dL 3 Unknown COMPLETE BLOOD COUNT 2336888 PLT 343 10e9/L 09/25/19 13 Unknown COMPLETE BLOOD COUNT 4074219 MPV 9.0 fL 3 Unknown COMPLETE BLOOD COUNT 6326552 CADEN % 68.2 % 3 Unknown COMPLETE BLOOD COUNT 0742276 LY % 22.4 % 3 Unknown COMPLETE BLOOD COUNT 0988182 MON % 6.4 % 3 Unknown COMPLETE BLOOD COUNT 3716287 EOS % 2.7 % 3 Unknown COMPLETE BLOOD COUNT 7837702 BASO % 0.3 % 3 Unknown COMPLETE BLOOD COUNT 7630739 RDW 13.8 % 3 Unknown COMPLETE BLOOD COUNT 2994707 ABS CADEN 8.12 10e9/L 013 Unknown COMPLETE BLOOD COUNT 2312009 ABS LYMPH 2.67 10e9/L 013 Unknown COMPLETE BLOOD COUNT 2686967 ABS MONO 0.76 10e9/L 013 Unknown COMPLETE BLOOD COUNT 8032478 ABS EOS 0.32 10e9/L 013 Unknown COMPLETE BLOOD COUNT 8796910 ABS BASO 0.04 10e9/L 013 Unknown COMPLETE BLOOD COUNT [id number] RDW-SD 45.6 fL 3 Unknown GFR CALC 0551298 GFR AA >60 ML/MIN 09/25/2012 Unknown GFR CALC 8844350 GFR NON-AA >60 ML/MIN 09/25/2012 Unknown ERYTHROCYTE SEDIMENTATION RATE 59333 ESR 19 MM/HR 05/06/2012 Unknown VITAMIN B 12 FOLIC ACID 34450|38876 VIT B 12 922 PG/ML 04/11 Unknown VITAMIN B 12 FOLIC ACID 73643|73505 FOLIC ACID 13.6 NG/ML Unknown URIC ACID 73394 URIC ACID 7.8 MG/DL 05/06/2012 Unknown COMPLETE BLOOD COUNT 98488 WBC 11.9 10e9/L 012 Unknown COMPLETE BLOOD COUNT 19512 RBC 5.30 10e12/L 2011 Unknown COMPLETE BLOOD COUNT 65490 HGB 16.6 g/dL 2 Unknown COMPLETE BLOOD COUNT 41106 HCT DET 47.2 % 2 Unknown COMPLETE BLOOD COUNT 06343 MCV 89.1 fL 2 Unknown COMPLETE BLOOD COUNT 26133 MCH 31.3 pg 2 Unknown COMPLETE BLOOD COUNT 01330 MCHC 35.2 g/dL 2 Unknown COMPLETE BLOOD COUNT 16806 PLT 362 10e9/L 05/06/20 12 Unknown COMPLETE BLOOD COUNT 36982 MPV 9.4 fL 2 Unknown COMPLETE BLOOD COUNT 17872 CADEN % 68.2 % 2 Unknown COMPLETE BLOOD COUNT 41783 LY % 22.0 % 2 Unknown COMPLETE BLOOD COUNT 90733 MON % 6.9 % 2 Unknown COMPLETE BLOOD COUNT 72134 EOS % 2.6 % 2 Unknown COMPLETE BLOOD COUNT 44371 BASO % 0.3 % 2 Unknown COMPLETE BLOOD COUNT 10779 RDW 12.8 % 2 Unknown COMPLETE BLOOD COUNT 93849 ABS CADEN 8.12 10e9/L 012 Unknown COMPLETE BLOOD COUNT 56876 ABS LYMPH 2.62 10e9/L 012 Unknown COMPLETE BLOOD COUNT 46410 ABS MONO 0.82 10e9/L 012 Unknown COMPLETE BLOOD COUNT 45720 ABS EOS 0.31 10e9/L 012 Unknown COMPLETE BLOOD COUNT 45574 ABS BASO 0.04 10e9/L 012 Unknown COMPLETE BLOOD COUNT 27838 RDW-SD 41.5 fL 2 Unknown GFR CALC 5149130 GFR AA >60 ML/MIN 05/06/2012 Unknown GFR CALC 1310999 GFR NON-AA 58.0L ML/MIN 05/06/2012 Unkno wn FREE T4 71077 FREE T4 1.15 NG/DL 05/06/2012 Unknown THYROID STIMULATING HORMONE 55083 TSH 1.568 uIU/ML 05/06/2012 Unknown COMPREHENSIVE METABOLIC 09495 AST 20 U/L 2011 Unknown COMPREHENSIVE METABOLIC 09979 ALT 12 IU/L 2011 Unknown COMPREHENSIVE METABOLIC 78711 BUN 20 MG/DL 2011 Unknown COMPREHENSIVE METABOLIC 96007 ALBUMIN 4.5 GM/DL 2011 Unknown COMPREHENSIVE METABOLIC 33969 CHLORIDE 91 MMOL/L 2011 Unknown COMPREHENSIVE METABOLIC 38568 BILI TOT 0.4 MG/DL 2011 Unknown COMPREHENSIVE METABOLIC 99356 ALK PHOS 73 U/L 2011 Unknown COMPREHENSIVE METABOLIC 16699 SODIUM 139 MMOL/L 05/06 Unknown COMPREHENSIVE METABOLIC 45214 CREATININE 1.02 MG/DL 04/11 Unknown COMPREHENSIVE METABOLIC 76774 CALCIUM 9.7 MG/DL 2011 Unknown COMPREHENSIVE METABOLIC 78367 POTASSIUM 3.1 MMOL/L 05/06 Unknown COMPREHENSIVE METABOLIC 60559 PROT TOT 7.3 GM/DL 2011 Unknown COMPREHENSIVE METABOLIC 44652 Glucose 118 MG/DL 2011 Unknown COMPREHENSIVE METABOLIC 81386 BICARB 33 MMOL/L 2011 Unknown COMPREHENSIVE METABOLIC 12426 ANION GAP 15 MEQ/L 2011 Unknown Procedures Procedure Codes Date ROUTINE VENIPUNCTURE CPT-4: 32260 09/29/2019 URINALYSIS NONAUTO W/O SCOPE CPT-4: 99577 09/29/2019 COMPREHEN METABOLIC PANEL CPT-4: 44401 09/29/2019 LIPID PANEL CPT-4: 11764 09/29/2019 A1C HPLC CPT-4: 40184 09/29/2019 ASSAY OF FREE THYROXINE CPT-4: 08987 09/29/2019 ASSAY THYROID STIM HORMONE CPT-4: 45318 09/29/2019 COMPLETE CBC W/AUTO DIFF WBC CPT-4: 11615 09/29/2019 URINALYSIS NONAUTO W/O SCOPE CPT-4: 84898 09/30/2018 MICROALBUMIN QUANTITATIVE CPT-4: 35149 09/30/2018 CEFTRIAXONE SODIUM INJECTION CPT-4: J0696 06/19/2018 THER/PROPH/DIAG INJ SC/IM CPT-4: 35944 06/19/2018 CEFTRIAXONE SODIUM INJECTION CPT-4: J0696 06/17/2018 THER/PROPH/DIAG INJ SC/IM CPT-4: 57827 06/17/2018 THER/PROPH/DIAG INJ SC/IM CPT-4: 05566 05/16/2018 KETOROLAC TROMETHAMINE INJ CPT-4: J1885 05/16/2018 ONDANSETRON HCL INJECTION CPT-4: J2405 05/16/2018 THER/PROPH/DIAG INJ SC/IM CPT-4: 83139 05/16/2018 ROUTINE VENIPUNCTURE CPT-4: 74760 03/20/2018 COMPREHEN METABOLIC PANEL CPT-4: 76056 03/20/2018 DEXAMETHASONE SODIUM PHOS CPT-4: J1100 02/11/2018 THER/PROPH/DIAG INJ SC/IM CPT-4: 11080 02/11/2018 TRIAMCINOLONE ACET INJ NOS CPT-4: J3301 02/11/2018 CEFTRIAXONE SODIUM INJECTION CPT-4: J0696 02/01/2018 THER/PROPH/DIAG INJ SC/IM CPT-4: 90918 02/01/2018 CEFTRIAXONE SODIUM INJECTION CPT-4: J0696 01/30/2018 THER/PROPH/DIAG INJ SC/IM CPT-4: 73238 01/30/2018 ROUTINE VENIPUNCTURE CPT-4: 40926 12/10/2017 ASSAY OF FREE THYROXINE CPT-4: 36734 12/10/2017 ASSAY THYROID STIM HORMONE CPT-4: 04403 12/10/2017 COMPREHEN METABOLIC PANEL CPT-4: 37474 12/10/2017 COMPLETE CBC W/AUTO DIFF WBC CPT-4: 03703 12/10/2017 LIPID PANEL CPT-4: 30508 12/10/2017 A1C HPLC CPT-4: 66458 12/10/2017 CEFTRIAXONE SODIUM INJECTION CPT-4: J0696 12/10/2017 THER/PROPH/DIAG INJ SC/IM CPT-4: 60899 12/10/2017 CEFTRIAXONE SODIUM INJECTION CPT-4: J0696 12/07/2017 THER/PROPH/DIAG INJ SC/IM CPT-4: 58123 12/07/2017 DEXAMETHASONE SODIUM PHOS CPT-4: J1100 12/07/2017 THER/PROPH/DIAG INJ SC/IM CPT-4: 50119 12/07/2017 CEFTRIAXONE SODIUM INJECTION CPT-4: J0696 10/08/2017 THER/PROPH/DIAG INJ SC/IM CPT-4: 35077 10/08/2017 CEFTRIAXONE SODIUM INJECTION CPT-4: J0696 09/21/2017 THER/PROPH/DIAG INJ SC/IM CPT-4: 56084 09/21/2017 CEFTRIAXONE SODIUM INJECTION CPT-4: J0696 09/20/2017 THER/PROPH/DIAG INJ SC/IM CPT-4: 09714 09/20/2017 REMOVAL OF NAIL PLATE CPT-4: 45668 08/29/2017 THER/PROPH/DIAG INJ SC/IM CPT-4: 19232 08/29/2017 TRIAMCINOLONE ACET INJ NOS CPT-4: J3301 08/29/2017 CEFTRIAXONE SODIUM INJECTION CPT-4: J0696 08/29/2017 THER/PROPH/DIAG INJ SC/IM CPT-4: 58847 08/29/2017 DESTRUCT PREMALG LESION (Cryosurgery) CPT-4: 75546 ROUTINE VENIPUNCTURE CPT-4: 00352 06/27/2017 ASSAY OF FREE THYROXINE CPT-4: 13706 06/27/2017 ASSAY THYROID STIM HORMONE CPT-4: 21823 06/27/2017 COMPREHEN METABOLIC PANEL CPT-4: 22057 06/27/2017 COMPLETE CBC W/AUTO DIFF WBC CPT-4: 65612 06/27/2017 EXC TR-EXT B9+REECE 0.5 CM< CPT-4: 41950 01/24/2017 THER/PROPH/DIAG INJ SC/IM CPT-4: 73798 08/02/2016 DEXAMETHASONE SODIUM PHOS CPT-4: J1100 08/02/2016 DESTRUCT PREMALG LESION (Cryosurgery) CPT-4: 40737 EXC TR-EXT B9+REECE 0.5 CM< CPT-4: 34307 08/01/2016 AEROBIC WOUND CULTURE & STN CPT-4: 10088 07/06/2016 CEFTRIAXONE SODIUM INJECTION CPT-4: J0696 05/25/2016 THER/PROPH/DIAG INJ SC/IM CPT-4: 96072 05/25/2016 THER/PROPH/DIAG INJ SC/IM CPT-4: 92924 04/26/2016 DEXAMETHASONE SODIUM PHOS CPT-4: J1100 04/26/2016 CEFTRIAXONE SODIUM INJECTION CPT-4: J0696 04/26/2016 THER/PROPH/DIAG INJ SC/IM CPT-4: 70169 04/26/2016 THER/PROPH/DIAG INJ SC/IM CPT-4: 22331 02/09/2016 TRIAMCINOLONE ACET INJ NOS CPT-4: J3301 02/09/2016 URINALYSIS NONAUTO W/O SCOPE CPT-4: 78263 01/24/2016 URINE CULTURE/ COLONY COUNT CPT-4: 04146 01/24/2016 THER/PROPH/DIAG INJ SC/IM CPT-4: 37278 12/08/2015 TRIAMCINOLONE ACET INJ NOS CPT-4: J3301 12/08/2015 THER/PROPH/DIAG INJ SC/IM CPT-4: 89153 10/07/2015 TRIAMCINOLONE ACET INJ NOS CPT-4: J3301 10/07/2015 DESTRUCT PREMALG LESION (Cryosurgery) CPT-4: 58132 THER/PROPH/DIAG INJ SC/IM CPT-4: 24523 03/16/2015 METHYLPREDNISOLONE 40 MG INJ CPT-4: J1030 03/16/2015 DESTRUCT PREMALG LESION (Cryosurgery) CPT-4: 82217 THER/PROPH/DIAG INJ SC/IM CPT-4: 18491 09/11/2014 METHYLPREDNISOLONE 40 MG INJ CPT-4: J1030 09/11/2014 TRIAMCINOLONE ACET INJ NOS CPT-4: J3301 09/11/2014 CEFTRIAXONE SODIUM INJECTION CPT-4: J0696 09/11/2014 THER/PROPH/DIAG INJ SC/IM CPT-4: 62529 09/11/2014 ROUTINE VENIPUNCTURE CPT-4: 67772 08/27/2014 COMPREHEN METABOLIC PANEL CPT-4: 16948 08/27/2014 COMPLETE CBC W/AUTO DIFF WBC CPT-4: 51611 08/27/2014 LIPID PANEL CPT-4: 64406 08/27/2014 ROUTINE VENIPUNCTURE CPT-4: 27427 07/21/2014 ASSAY OF AMYLASE CPT-4: 87048 07/21/2014 ASSAY OF LIPASE CPT-4: 73630 07/21/2014 THER/PROPH/DIAG INJ SC/IM CPT-4: 86854 07/15/2014 TRIAMCINOLONE ACET INJ NOS CPT-4: J3301 07/15/2014 ROUTINE VENIPUNCTURE CPT-4: 09619 05/14/2014 ASSAY OF FREE THYROXINE CPT-4: 12158 05/14/2014 ASSAY THYROID STIM HORMONE CPT-4: 10854 05/14/2014 COMPREHEN METABOLIC PANEL CPT-4: 86756 05/14/2014 COMPLETE CBC W/AUTO DIFF WBC CPT-4: 61798 05/14/2014 LIPID PANEL CPT-4: 61270 05/14/2014 CEFTRIAXONE SODIUM INJECTION CPT-4: J0696 04/21/2014 THER/PROPH/DIAG INJ SC/IM CPT-4: 61351 04/21/2014 THER/PROPH/DIAG INJ SC/IM CPT-4: 34716 04/21/2014 TRIAMCINOLONE ACET INJ NOS CPT-4: J3301 04/21/2014 THER/PROPH/DIAG INJ SC/IM CPT-4: 15671 03/04/2014 METHYLPREDNISOLONE 40 MG INJ CPT-4: J1030 03/04/2014 TRIAMCINOLONE ACET INJ NOS CPT-4: J3301 03/04/2014 CEFTRIAXONE SODIUM INJECTION CPT-4: J0696 03/04/2014 THER/PROPH/DIAG INJ SC/IM CPT-4: 54008 03/04/2014 TDAP VACCINE 7 YRS/> IM CPT-4: 58374 02/27/2014 IMMUNIZATION ADMIN CPT-4: 15637 02/27/2014 DESTRUCT PREMALG LESION (Cryosurgery) CPT-4: 83589 DESTRUCT PREMALG LES 2-14 CPT-4: 71640 01/13/2014 THER/PROPH/DIAG INJ SC/IM CPT-4: 53664 10/21/2013 METHYLPREDNISOLONE 40 MG INJ CPT-4: J1030 10/21/2013 TRIAMCINOLONE ACET INJ NOS CPT-4: J3301 10/21/2013 CEFTRIAXONE SODIUM INJECTION CPT-4: J0696 08/27/2013 THER/PROPH/DIAG INJ SC/IM CPT-4: 96407 08/27/2013 THER/PROPH/DIAG INJ SC/IM CPT-4: 03133 08/27/2013 METHYLPREDNISOLONE 40 MG INJ CPT-4: J1030 08/27/2013 TRIAMCINOLONE ACET INJ NOS CPT-4: J3301 08/27/2013 THER/PROPH/DIAG INJ SC/IM CPT-4: 55845 06/23/2013 METHYLPREDNISOLONE 40 MG INJ CPT-4: J1030 06/23/2013 TRIAMCINOLONE ACET INJ NOS CPT-4: J3301 06/23/2013 THER/PROPH/DIAG INJ SC/IM CPT-4: 94349 05/26/2013 METHYLPREDNISOLONE 40 MG INJ CPT-4: J1030 05/26/2013 TRIAMCINOLONE ACET INJ NOS CPT-4: J3301 05/26/2013 ROUTINE VENIPUNCTURE CPT-4: 48014 03/05/2013 ASSAY OF FREE THYROXINE CPT-4: 16823 03/05/2013 ASSAY THYROID STIM HORMONE CPT-4: 64794 03/05/2013 COMPREHEN METABOLIC PANEL CPT-4: 57190 03/05/2013 COMPLETE CBC W/AUTO DIFF WBC CPT-4: 82545 03/05/2013 A1C GLYCOSYLATED HEMOGLOBIN TEST CPT-4: 61201 013 DRAIN/INJECT JOINT/BURSA CPT-4: 62767 12/04/2012 METHYLPREDNISOLONE 40 MG INJ CPT-4: J1030 12/04/2012 TRIAMCINOLONE ACET INJ NOS CPT-4: J3301 12/04/2012 CEFTRIAXONE SODIUM INJECTION CPT-4: J0696 11/21/2012 THER/PROPH/DIAG INJ SC/IM CPT-4: 30514 11/21/2012 THER/PROPH/DIAG INJ SC/IM CPT-4: 99752 10/14/2012 METHYLPREDNISOLONE 40 MG INJ CPT-4: J1030 10/14/2012 TRIAMCINOLONE ACET INJ NOS CPT-4: J3301 10/14/2012 URINALYSIS NONAUTO W/O SCOPE CPT-4: 13916 09/27/2012 ROUTINE VENIPUNCTURE CPT-4: 78328 09/25/2012 ASSAY OF FREE THYROXINE CPT-4: 44286 09/25/2012 ASSAY THYROID STIM HORMONE CPT-4: 76457 09/25/2012 COMPREHEN METABOLIC PANEL CPT-4: 43682 09/25/2012 COMPLETE CBC W/AUTO DIFF WBC CPT-4: 60737 09/25/2012 C-REACTIVE PROTEIN CPT-4: 65583 09/25/2012 THER/PROPH/DIAG INJ SC/IM CPT-4: 58594 08/29/2012 METHYLPREDNISOLONE 40 MG INJ CPT-4: J1030 08/29/2012 TRIAMCINOLONE ACET INJ NOS CPT-4: J3301 08/29/2012 DESTRUCT PREMALG LESION (Cryosurgery) CPT-4: 39117 THER/PROPH/DIAG INJ SC/IM CPT-4: 27003 05/06/2012 METHYLPREDNISOLONE 40 MG INJ CPT-4: J1030 05/06/2012 TRIAMCINOLONE ACET INJ NOS CPT-4: J3301 05/06/2012 VITAMIN B 12 FOLIC ACID CPT-4: 25914|42476 05/06/2012 RBC SED RATE AUTOMATED CPT-4: 05054 05/06/2012 ROUTINE VENIPUNCTURE CPT-4: 54102 05/06/2012 ASSAY OF FREE THYROXINE CPT-4: 31447 05/06/2012 ASSAY THYROID STIM HORMONE CPT-4: 24376 05/06/2012 COMPREHEN METABOLIC PANEL CPT-4: 66591 05/06/2012 COMPLETE CBC W/AUTO DIFF WBC CPT-4: 43589 05/06/2012 ASSAY OF BLOOD/URIC ACID CPT-4: 92121 05/06/2012 THER/PROPH/DIAG INJ SC/IM CPT-4: 07112 03/19/2012 KETOROLAC TROMETHAMINE INJ CPT-4: J1885 03/19/2012 KETOROLAC TROMETHAMINE INJ CPT-4: J1885 01/30/2012 THER/PROPH/DIAG INJ SC/IM CPT-4: 66253 01/30/2012 PROMETHAZINE HCL INJECTION CPT-4: J2550 01/30/2012 THER/PROPH/DIAG INJ SC/IM CPT-4: 05431 01/24/2012 METHYLPREDNISOLONE 40 MG INJ CPT-4: J1030 01/24/2012 TRIAMCINOLONE ACET INJ NOS CPT-4: J3301 01/24/2012 THER/PROPH/DIAG INJ SC/IM CPT-4: 10549 09/13/2011 KETOROLAC TROMETHAMINE INJ CPT-4: J1885 09/13/2011 THER/PROPH/DIAG INJ SC/IM CPT-4: 22068 09/13/2011 PROMETHAZINE HCL INJECTION CPT-4: J2550 09/13/2011 CEFTRIAXONE SODIUM INJECTION CPT-4: J0696 07/20/2011 THER/PROPH/DIAG INJ SC/IM CPT-4: 50878 07/20/2011 THER/PROPH/DIAG INJ SC/IM CPT-4: 72340 07/20/2011 METHYLPREDNISOLONE INJECTION CPT-4: J2930 07/20/2011 URINALYSIS NONAUTO W/O SCOPE CPT-4: 20940 05/09/2011 CEFTRIAXONE SODIUM INJECTION CPT-4: J0696 05/09/2011 THER/PROPH/DIAG INJ SC/IM CPT-4: 79199 05/09/2011 THER/PROPH/DIAG INJ SC/IM CPT-4: 46132 05/09/2011 PROMETHAZINE HCL INJECTION CPT-4: J2550 05/09/2011 HYDRATION IV INFUSION INIT CPT-4: 10557 05/09/2011 DESTRUCT PREMALG LESION (Cryosurgery) CPT-4: 29773 DESTRUCT PREMALG LES 2-14 CPT-4: 36196 07/19/2010 REMOVAL OF SKIN TAGS <W/15 CPT-4: 85898 05/30/2010 THER/PROPH/DIAG INJ SC/IM CPT-4: 41991 04/05/2010 CEFTRIAXONE SODIUM INJECTION CPT-4: J0696 04/05/2010 TRIAMCINOLONE ACET INJ NOS CPT-4: J3301 04/05/2010 METHYLPREDNISOLONE 40 MG INJ CPT-4: J1030 04/05/2010 THER/PROPH/DIAG INJ SC/IM CPT-4: 83324 04/05/2010 TRIAMCINOLONE ACET INJ NOS CPT-4: J3301 03/09/2010 METHYLPREDNISOLONE 40 MG INJ CPT-4: J1030 03/09/2010 THER/PROPH/DIAG INJ SC/IM CPT-4: 01457 03/09/2010 THER/PROPH/DIAG INJ SC/IM CPT-4: 65614 03/09/2010 CEFTRIAXONE SODIUM INJECTION CPT-4: J0696 03/09/2010 Vital Signs Date Vital 10/07/2019 Blood Pressure 1: 134/82 Code: 8480-6 Heart Rate 1: 105 bpm Respiratory Rate: 17 bpm SpO2: 96% Temperature: 36.8 (C) / 98.2 (F) We ight: 198 lbs 09/30/2019 Blood Pressure 1: 132/80 Code: 8480-6 BMI: 35.8 Code: 52716-3 Heart Rate 1: 88 bpm Height: 5'4" Respiratory Rate: 20 bpm SpO2: 95% Tempera ture: 36.9 (C) / 98.5 (F) Weight: 210 lbs 05/28/2019 Blood Pressure 1: 126/82 Code: 8480-6 BMI: 35.0 Code: 83568-8 Heart Rate 1: 88 bpm Height: 5'4" [...] 1: 128/90 Code: 8480-6 BMI: 37.2 Code: 72089-9 Heart Rate 1: 84 bpm Height: 5'4" Respiratory Rate: 20 bpm SpO2: 95% Tempera ture: 36.6 (C) / 97.8 (F) Weight: 217 lbs 08/27/2018 Blood Pressure 1: 128/88 Code: 8480-6 BMI: 38.3 Code: 17418-7 Heart Rate 1: 84 bpm Height: 5'4" [...] 1: 119/72 Code: 8480-6 BMI: 37.4 Code: 87123-2 Heart Rate 1: 82 bpm Height: 5'4" Respiratory Rate: 12 bpm SpO2: 94% Tempera ture: 35.2 (C) / 95.4 (F) Weight: 218 lbs 12/18/2017 Blood Pressure 1: 128/86 Code: 8480-6 BMI: 37.8 Code: 52538-0 Heart Rate 1: 84 bpm Height: 5'4" [...] 1: 128/82 Code: 8480-6 BMI: 35.5 Code: 52239-2 Heart Rate 1: 84 bpm Height: 5'4" [...] 1: 128/82 Code: 8480-6 BMI: 30.2 Code: 92576-4 Heart Rate 1: 80 bpm Height: 5'4" [...] 1: 128/86 Code: 8480-6 BMI: 32.8 Code: 65256-2 Heart Rate 1: 66 bpm Height: 5'4" Respiratory Rate: 18 bpm Temperature: 36 .3 (C) / 97.3 (F) Weight: 191 lbs 06/23/2013 Blood Pressure 1: 132/94 Code: 8480-6 BMI: 34.0 Code: 33134-9 Heart Rate 1: 84 bpm Height: 5'4" Respiratory Rate: 20 bpm Temperature: 36 .8 (C) / 98.2 (F) Weight: 198 lbs 05/26/2013 Blood Pressure 1: 114/80 Code: 8480-6 BMI: 35.0 Code: 67173-2 Heart Rate 1: 80 bpm Height: 5'4" Respiratory Rate: 20 bpm Temperature: 36 .4 (C) / 97.6 (F) Weight: 204 lbs 04/16/2013 Blood Pressure 1: 114/82 Code: 8480-6 BMI: 36.7 Code: 08164-3 Heart Rate 1: 84 bpm Height: 5'4" Respiratory Rate: 20 bpm Temperature: 36 .7 (C) / 98.0 (F) Weight: 214 lbs 03/05/2013 Blood Pressure 1: 136/90 Code: 8480-6 BMI: 37.1 Code: 86043-6 Heart Rate 1: 84 bpm Height: 5'4" [...] 1: 168/114 Code: 8480-6 BMI: 36.2 Code: 35973-0 Heart Rate 1: 104 bpm Height: 5'4" Respiratory Rate: 20 bpm Temperature: 36 .8 (C) / 98.2 (F) Weight: 211 lbs 11/22/2012 Blood Pressure 1: 128/90 Code: 8480-6 Heart Rate 1: 88 bpm Respiratory Rate: 20 bpm SpO2: 96% Temperature: 36.8 (C) / 98.2 (F) 11/21/2012 Blood Pressure 1: 146/100 Code: 8480-6 BMI: 35.7 Code: 37921-4 Heart Rate 1: 96 bpm Height: 5'4" [...] 1: 138/100 Code: 8480-6 BMI: 35.7 Code: 28800-9 Heart Rate 1: 96 bpm Height: 5'4" Respiratory Rate: 20 bpm Temperature: 36 .8 (C) / 98.2 (F) Weight: 208 lbs 05/06/2012 Blood Pressure 1: 154/102 Code: 8480-6 BMI: 34.7 Code: 48367-5 Heart Rate 1: 116 bpm Height: 5'4" Respiratory Rate: 20 bpm Temperature: 36 .8 (C) / 98.2 (F) Weight: 202 lbs 04/03/2012 Blood Pressure 1: 134/94 Code: 8480-6 BMI: 34.8 Code: 55875-0 Heart Rate 1: 108 bpm Height: 5'4" Respiratory Rate: 20 bpm Temperature: 36 .8 (C) / 98.2 (F) Weight: 203 lbs 03/19/2012 Blood Pressure 1: 148/106 Code: 8480-6 BMI: 35.0 Code: 07947-6 Heart Rate 1: 100 bpm Height: 5'4" Respiratory Rate: 20 bpm Temperature: 36 .6 (C) / 97.9 (F) Weight: 204 lbs 02/22/2012 Blood Pressure 1: 146/94 Code: 8480-6 He art Rate 1: 88 bpm 02/21/2012 Blood Pressure 1: 172/120 Code: 8480-6 B lood Pressure 2: 152/106 Code: 8480-6 Heart Rate 1: 116 bpm 02/20/2012 Blood Pressure 1: 160/100 Code: 8480-6 BMI: 32.0 Code: 81077-2 Heart Rate 1: 84 bpm Height: 5'7" Temperature: 36.5 (C) / 97.7 (F) Weight: 204 lbs 01/30/2012 Blood Pressure 1: 152/110 Code: 8480-6 BMI: 32.0 Code: 81865-9 Heart Rate 1: 116 bpm Height: 5'7" Respiratory Rate: 20 bpm Temperature: 37 .0 (C) / 98.6 (F) Weight: 204 lbs 01/24/2012 Blood Pressure 1: 146/100 Code: 8480-6 BMI: 32.0 Code: 96733-7 Heart Rate 1: 100 bpm Height: 5'7" Respiratory Rate: 20 bpm Temperature: 36 .7 (C) / 98.0 (F) Weight: 204 lbs 01/10/2012 Blood Pressure 1: 156/94 Code: 8480-6 BMI: 32.6 Code: 17215-1 Heart Rate 1: 72 bpm Height: 5'7" Respiratory Rate: 20 bpm Temperature: 36 .8 (C) / 98.2 (F) Weight: 208 lbs 12/11/2011 Blood Pressure 1: 146/100 Code: 8480-6 Heart Rat e 1: 116 bpm Height: 5'7" Respiratory Rate: 20 bpm Temperature: 36.9 (C) / 98.4 (F) We ight: 11/09/2011 Blood Pressure 1: 148/96 Code: 8480-6 BMI: 32.1 Code: 66922-4 Heart Rate 1: 116 bpm Height: 5'7" Respiratory Rate: 20 bpm Temperature: 36 .7 (C) / 98.0 (F) Weight: 205 lbs 09/13/2011 Blood Pressure 1: 126/88 Code: 8480-6 Heart Rate 1: 88 bpm Height: 5'7" Respiratory Rate: 20 bpm Temperature: 36.9 (C) / 98.4 (F) We ight: 08/31/2011 Blood Pressure 1: 118/82 Code: 8480-6 BMI: 32.0 Code: 88372-9 Heart Rate 1: 80 bpm Height: 5'7" Temperature: 36.4 (C) / 97.6 (F) Weight: 204 lbs 07/06/2011 Blood Pressure 1: 128/86 Code: 8480-6 BMI: 30.9 Code: 08591-4 Heart Rate 1: 92 bpm Height: 5'7" Respiratory Rate: 20 bpm Temperature: 36 .9 (C) / 98.4 (F) Weight: 197 lbs 06/06/2011 Blood Pressure 1: 112/74 Code: 8480-6 BMI: 31.0 Code: 72022-1 Heart Rate 1: 72 bpm Height: 5'7" [...] 1: 128/92 Code: 8480-6 BMI: 33.6 Code: 63581-8 Heart Rate 1: 104 bpm Height: 5'4" [...] 01/30/2012 edema 01/24/2012 Currently just francesco velez [facility] shoulder pain 01/10/2012 thinks these are cau [...] Check-up Encounters Encounter Performer Location Codes Date ([id number]) OFFICE/OUTPATIENT VISIT EST Diagnosis: Ingrowing nail[ICD10: L60.0] Diagnosis: Type 2 diabetes mellitus with hyperglycemia[ICD10: E11.65] Kathleen Zuniga MARÍA ELENA Fabiola APPIAH DO [facility] CPT-4: 80738 10/07/2019 ([id number]) OFFICE/OUTPATIENT VISIT EST Diagnosis: DM w/o complication type II, uncontrolled[ICD10: E11.65] Diagnosis: Hypertriglyceridemia[ICD10: E78.1] Diagnosis: Essential hypertension[ICD10: I10] María Elena BASURTO TED [facility] DO [facility] CPT-4: 35154 09/30/2019 ([id number]) NURSE/OUTPATIENT VISIT EST Diagnosis: Essential (primary) hypertension[ICD10: I10] Diagnosis: Cervicalgia[ICD10: M54.2] Diagnosis: Hyperglycemia, unspecified[ICD10: R73.9] Diagnosis: Mixed hyperlipidemia[ICD10: E78.2] María Elena BASURTO TED APPIAH [employer] [facility] CPT-4: 27510 09/29/2019 ([id number]) OFFICE/OUTPATIENT VISIT EST Diagnosis: Essential (primary) hypertension[ICD10: I10] Diagnosis: Fall from bed, sequela[ICD10: W06.XXXS] María Elena REED LucioJj TD [employer] [facility] [employer] [facility] CPT-4: 02489 05/28/2019 ([id number]) NURSE/OUTPATIENT VISIT EST Diagnosis: Essential (primary) hypertension[ICD10: I10] María Elena JUARES LucioJj TD [facility] CPT-4: 82751 05/19/2019 ([id number]) OFFICE/OUTPATIENT VISIT EST Diagnosis: Essential (primary) hypertension[ICD10: I10] Diagnosis: Type 2 diabetes mellitus with hyperglycemia[ICD10: E11.65] Diagnosis: Intervertebral disc disorders with radiculopathy, 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5] María Elena APPIAH [employer] [facility] CPT-4: 78791 08/27/2018 ([id number]) OFFICE/OUTPATIENT VISIT EST Diagnosis: Acute recurrent sinusitis, unspecified[ICD10: J01.91] Diagnosis: Follicular disorder, unspecified[ICD10: L73.9] Diagnosis: Tinea corporis[ICD10: B35.4] María Elena [facility]IA[facility] CPT-4: 16896 08/09/2018 ([id number]) OFFICE/OUTPATIENT VISIT EST Diagnosis: Tinea corporis[ICD10: B35.4] Diagnosis: Anxiety disorder, unspecified[ICD10: F41.9] Diagnosis: Menopausal and female climacteric states[ICD10: N95.1] María Elena APPIAH [employer] [facility] [employer] [facility] CPT-4: 18686 07/22/2018 ([id number]) NURSE/OUTPATIENT VISIT EST Diagnosis: Cellulitis of right toe[ICD10: L03.031] María Elena APPIAH [facility] [employer] [facility] CPT-4: 90428 06/19/2018 ([id number]) OFFICE/OUTPATIENT VISIT EST Diagnosis: Cellulitis of right toe[ICD10: L03.031] Kathleen APPIAH [employer] [facility] [employer] [facility] CPT-4: 48462 06/17/2018 ([id number]) OFFICE/OUTPATIENT VISIT EST Diagnosis: Migraine without aura, intractable, without status migrainosus[ICD10: G43.019] Diagnosis: Zoster without complications[ICD10: B02.9] Kathleen APPIAH [employer] [facility] [employer] [facility] CPT-4: 98045 05/16/2018 ([id number]) OFFICE/OUTPATIENT VISIT EST Diagnosis: Cellulitis of right lower limb[ICD10: L03.115] Kathleen [facility] DO [facility] CPT-4: 97828 03/20/2018 ([id number]) OFFICE/OUTPATIENT VISIT EST Diagnosis: Cellulitis of right lower limb[ICD10: L03.115] Kathleen [facility] DO [facility] CPT-4: 69901 03/18/2018 ([id number]) OFFICE/OUTPATIENT VISIT EST Diagnosis: Cellulitis of right lower limb[ICD10: L03.115] Kathleen [facility] DO [facility] CPT-4: 67625 03/15/2018 ([id number]) OFFICE/OUTPATIENT VISIT EST Diagnosis: Acute sinusitis, unspecified[ICD10: J01.90] Kathleen [facility]IA[facility] DO [facility] CPT-4: 92155 02/11/2018 ([id number]) NURSE/OUTPATIENT VISIT EST Diagnosis: Otitis media, unspecified, right ear[ICD10: H66.91] María Elena [facility] DO [facility] CPT-4: 35584 02/01/2018 ([id number]) OFFICE/OUTPATIENT VISIT EST Diagnosis: Acute suppurative otitis media without spontaneous rupture of ear drum, left ear[ICD10: H66.002] Diagnosis: Abnormal weight gain[ICD10: R63.5] Diagnosis: Intervertebral disc disorders with radiculopathy, 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] Kathleen [facility] DO [facility] CPT-4: 99 214 01/30/2018 ([id number]) PREV VISIT EST AGE 40-64 Diagnosis: Encounter for general adult medical examination without abnormal findings[ICD10: Z00.00] Diagnosis: Essential (primary) hypertension[ICD10: I10] Diagnosis: Mixed hyperlipidemia[ICD10: E78.2] Diagnosis: Type 2 diabetes mellitus with hyperglycemia[ICD10: E11.65] Diagnosis: 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] María Elena [facility] DO [facility] CPT-4: 83645 12/18/2017 ([id number]) OFFICE/OUTPATIENT VISIT EST Diagnosis: Cellulitis of right toe[ICD10: L03.031] Diagnosis: Mixed hyperlipidemia[ICD10: E78.2] Diagnosis: Essential (primary) hypertension[ICD10: I10] Diagnosis: Hyperglycemia, unspecified[ICD10: R73.9] Diagnosis: Nontoxic goiter, 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] María Elena [facility] DO [facility] CPT-4: 72650 12/10/2017 ([id number]) OFFICE/OUTPATIENT VISIT EST Diagnosis: Cellulitis of right toe[ICD10: L03.031] Diagnosis: Acute sinusitis, unspecified[ICD10: J01.90] Kathleen [facility] DO [facility] CPT-4: 90999 12/07/2017 OFFICE/OUTPATIENT VISIT EST Diagnosis: Acute maxillary sinusitis, unspecified[ICD10: J01.00] Kathleen [facility] DO [facility] CPT-4: 17787 10/08/2017 ([id number]) OFFICE/OUTPATIENT VISIT EST Diagnosis: Cellulitis of left toe[ICD10: L03.032] María Elena APPIAH [facility] CPT-4: 90872 09/21/2017 ([id number]) OFFICE/OUTPATIENT VISIT EST Diagnosis: Insomnia, unspecified[ICD10: G47.00] Diagnosis: Major depressive disorder, single episode, unspecified[ICD10: F32.9] Diagnosis: Anxiety disorder, unspecified[ICD10: F41.9] Diagnosis: Cellulitis of left toe[ICD10: L03.032] Diagnosis: Snoring[ICD10: R06.83] Kathleen [facility] DO [facility] CPT-4: 75738 09/20/2017 ([id number]) OFFICE/OUTPATIENT VISIT EST Diagnosis: Cellulitis of left toe[ICD10: L03.032] María Elena MONTEROQ TANIA [facility] CPT-4: 15528 07/19/2017 OFFICE/OUTPATIENT VISIT EST Diagnosis: Chronic sinusitis, unspecified[ICD10: J32.9] Diagnosis: Generalized hyperhidrosis[ICD10: R61] Kathleen APPIA[facility] DO [facility] CPT-4: 22594 06/27/2017 ([id number]) OFFICE/OUTPATIENT VISIT EST Diagnosis: Intervertebral disc disorders with radiculopathy, 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] Diagnosis: Primary insomnia[ICD10: F51.01] Diagnosis: Other fatigue[ICD10: R53.83] María Elena APPIA[facility] DO [facility] CPT-4: 01964 04/10/2017 ([id number]) OFFICE/OUTPATIENT VISIT EST Diagnosis: Primary insomnia[ICD10: F51.01] Diagnosis: Localized edema[ICD10: R60.0] Diagnosis: 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] María Elena APPIAH DO [facility] CPT-4: 17053 12/13/2016 ([id number]) OFFICE/OUTPATIENT VISIT EST Diagnosis: Primary insomnia[ICD10: F51.01] Diagnosis: Cyanosis[ICD10: R23.0] María Elena Bazzi [facility] CPT-4: 66887 11/01/2016 ([id number]) PREV VISIT EST AGE 40-64 Diagnosis: Encounter for gynecological examination (general) (routine) without abnormal findings[ICD10: Z01.419] Diagnosis: Encounter for routine child health examination without abnormal findings[ICD10: Z00.129] María Elena APPIAH [employer] [facility] CPT-4: 94796 10/17/2016 ([id number]) OFFICE/OUTPATIENT VISIT EST Diagnosis: Other seasonal allergic rhinitis[ICD10: J30.2] María Elena APPIAH DO [facility] CPT-4: 30209 10/10/2016 ([id number]) OFFICE/OUTPATIENT VISIT EST Diagnosis: Pain in left arm[ICD10: M79.602] Diagnosis: Contact with and (suspected) exposure to potentially hazardous body fluids[ICD10: Z77.21] Diagnosis: 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, 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] Diagnosis: Unspecified open wound, right foot, sequela[ICD10: S91.301S] María Elena APPIAH [employer] [facility] CPT-4: 31875 09/19/2016 ([id number]) OFFICE/OUTPATIENT VISIT EST Diagnosis: Chronic sinusitis, unspecified[ICD10: J32.9] Diagnosis: Allergic rhinitis due to pollen[ICD10: J30.1] María Elena APPIAH DO [facility] CPT-4: 65024 08/24/2016 ([id number]) OFFICE/OUTPATIENT VISIT EST Diagnosis: Acute bronchitis, unspecified[ICD10: J20.9] María Elena APPIAH DO [facility] CPT-4: 39260 08/16/2016 ([id number]) OFFICE/OUTPATIENT VISIT EST Diagnosis: Otitis media, unspecified, right ear[ICD10: H66.91] Diagnosis: Acute bronchitis, unspecified[ICD10: J20.9] María Elena APPIAH DO [facility] CPT-4: 35690 08/10/2016 ([id number]) OFFICE/OUTPATIENT VISIT EST Diagnosis: Acute recurrent sinusitis, unspecified[ICD10: J01.91] Diagnosis: Allergic rhinitis due to pollen[ICD10: J30.1] María Elena APPIAH [employer] [facility] CPT-4: 35911 08/02/2016 ([id number]) OFFICE/OUTPATIENT VISIT EST Diagnosis: Pain in unspecified joint[ICD10: M25.50] María Elena APPIAH [employer] [facility] CPT-4: 87309 07/27/2016 OFFICE/OUTPATIENT VISIT EST Diagnosis: 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] Diagnosis: Acute recurrent sinusitis, unspecified[ICD10: J01.91] Diagnosis: Other fatigue[ICD10: R53.83] Diagnosis: Primary insomnia[ICD10: F51.01] Diagnosis: Pain in unspecified joint[ICD10: M25.50] María Elena APPIAH [employer] [facility] CPT-4: 65394 07/20/2016 ([id number]) OFFICE/OUTPATIENT VISIT EST Diagnosis: Blister (nonthermal), left great toe, initial encounter[ICD10: S90.422A] Loan Sánchez MARÍA ELENA APPIAH [employer] [facility] CPT-4: 22222 ([id number]) OFFICE/OUTPATIENT VISIT EST Diagnosis: Acute recurrent sinusitis, unspecified[ICD10: J01.91] María Elena APPIAH DO [facility] CPT-4: 15378 05/25/2016 ([id number]) OFFICE/OUTPATIENT VISIT EST Diagnosis: Acute sinusitis, unspecified[ICD10: J01.90] María Elena APPIAH DO [facility] CPT-4: 21835 04/26/2016 ([id number]) OFFICE/OUTPATIENT VISIT EST Diagnosis: Flushing[ICD10: R23.2] Diagnosis: Primary insomnia[ICD10: F51.01] María Elena APPIAH DO [facility] CPT-4: 13672 03/02/2016 ([id number]) OFFICE/OUTPATIENT VISIT EST Diagnosis: Other seasonal allergic rhinitis[ICD10: J30.2] Loan APPIAH DO [facility] CPT-4: 14905 02/09/2016 ([id number]) OFFICE/OUTPATIENT VISIT EST Diagnosis: Primary insomnia[ICD10: F51.01] Diagnosis: Urinary tract infection, site not specified[ICD10: N39.0] María Elena APPIAH DO [facility] CPT-4: 28665 01/24/2016 ([id number]) OFFICE/OUTPATIENT VISIT EST Diagnosis: Other specified disorders of Eustachian tube, bilateral[ICD10: H69.83] Diagnosis: Allergic rhinitis, unspecified[ICD10: J30.9] Loan APPIAH DO [facility] CPT-4: 28367 12/23/2015 ([id number]) OFFICE/OUTPATIENT VISIT EST Diagnosis: Acute recurrent sinusitis, unspecified[ICD10: J01.91] Diagnosis: 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] Diagnosis: Allergic rhinitis, unspecified[ICD10: J30.9] María Elena APPIAH DO [facility] CPT-4: 90682 12/08/2015 ([id number]) OFFICE/OUTPATIENT VISIT EST Diagnosis: Allergic rhinitis, unspecified[ICD10: J30.9] Diagnosis: Pain in unspecified joint[ICD10: M25.50] María Elena APPIAH DO [facility] CPT-4: 23584 10/07/2015 ([id number]) OFFICE/OUTPATIENT VISIT EST Diagnosis: Essential (primary) hypertension[ICD10: I10] María Elena APPIAH DO [facility] CPT-4: 94877 10/06/2015 OFFICE/OUTPATIENT VISIT EST Diagnosis: Localized enlarged lymph nodes[ICD10: R59.0] Diagnosis: Local infection of the skin and subcutaneous tissue, unspecified[ICD10: L08.9] June APPIAH DO [facility] CPT- 4: 11984 09/14/2015 ([id number]) OFFICE/OUTPATIENT VISIT EST Diagnosis: Essential (primary) hypertension[ICD10: I10] Diagnosis: Actinic keratosis[ICD10: L57.0] María Elena APPIAH DO [facility] CPT-4: 52162 09/07/2015 ([id number]) OFFICE/OUTPATIENT VISIT EST Diagnosis: Essential (primary) hypertension[ICD10: I10] Diagnosis: Acute stress reaction[ICD10: F43.0] María Elena APPIAH DO [facility] CPT-4: 60340 08/18/2015 ([id number]) OFFICE/OUTPATIENT VISIT EST Diagnosis: Essential (primary) hypertension[ICD10: I10] María Elena APPIAH DO [facility] CPT-4: 87616 07/07/2015 ([id number]) OFFICE/OUTPATIENT VISIT EST Diagnosis: Essential (primary) hypertension[ICD10: I10] María Elena APPIAH DO [facility] CPT-4: 42683 06/24/2015 ([id number]) OFFICE/OUTPATIENT VISIT EST Diagnosis: Essential (primary) hypertension[ICD10: I10] María Elena APPIAH DO [facility] CPT-4: 83104 06/21/2015 ([id number]) OFFICE/OUTPATIENT VISIT EST Diagnosis: Essential (primary) hypertension[ICD10: I10] Diagnosis: Mixed hyperlipidemia[ICD10: E78.2] Diagnosis: Acute stress reaction[ICD10: F43.0] Diagnosis: Primary insomnia[ICD10: F51.01] María Elena APPIAH DO [facility] CPT-4: 17681 06/16/2015 ([id number]) OFFICE/OUTPATIENT VISIT EST Diagnosis: INSOMNIA NOS[ICD9: 780.52] Diagnosis: HYPERTENSION[ICD9: 401.9] Diagnosis: Stress reaction[ICD9: 308.9] María Elena APPIAH DO [facility] CPT-4: 22239 06/02/2015 ([id number]) OFFICE/OUTPATIENT VISIT EST Diagnosis: HYPERTENSION[ICD9: 401.9] Diagnosis: Stress reaction[ICD9: 308.9] María Elena APPIAH DO [facility] CPT-4: 16495 05/20/2015 ([id number]) OFFICE/OUTPATIENT VISIT EST Diagnosis: Skin lesion[ICD9: 709.9] 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] María Elena APPIAH DO [facility] CPT-4: 46833 05/10/2015 ([id number]) OFFICE/OUTPATIENT VISIT EST Diagnosis: SINUSITIS, ACUTE[ICD9: 461.9] Diagnosis: ALLERGIC RHINITIS[ICD9: 477.9] Diagnosis: DERMATITIS NOS[ICD9: 692.9] María Elena REHMAN DO [facility] CPT-4: 11851 03/16/2015 OFFICE/OUTPATIENT VISIT EST Diagnosis: Otitis media[ICD9: 382.9] Diagnosis: SINUSITIS, ACUTE[ICD9: 461.9] June Sandra MARÍA ELENA APPIAH DO [facility] CPT-4: 62000 09/11/2014 ([id number]) OFFICE/OUTPATIENT VISIT EST Diagnosis: HYPERLIPIDEMIA NEC/NOS[ICD9: 272.4] María Elena APPIAH DO [facility] CPT-4: 40108 08/31/2014 ([id number]) OFFICE/OUTPATIENT VISIT EST Diagnosis: - I - HYPERTENSION[ICD9: 401.9] Diagnosis: HYPERLIPIDEMIA NEC/NOS[ICD9: 272.4] María Elena APPIAH DO [facility] CPT-4: 27109 08/27/2014 ([id number]) OFFICE/OUTPATIENT VISIT EST Diagnosis: ABDOMINAL PAIN[ICD9: 789.00] Diagnosis: DYSPEPSIA[ICD9: 536.8] Diagnosis: Thoracic back pain[ICD9: 724.1] María Elena APPIAH DO [facility] CPT-4: 84223 07/21/2014 ([id number]) OFFICE/OUTPATIENT VISIT EST Diagnosis: ALLERGIC RHINITIS[ICD9: 477.9] María Elena APPIAH DO [facility] CPT-4: 37605 07/15/2014 ([id number]) OFFICE/OUTPATIENT VISIT EST Diagnosis: EDEMA[ICD9: 782.3] Diagnosis: Chronic insomnia[ICD9: 780.52] María Elena APPIAH DO [facility] CPT-4: 76274 05/18/2014 ([id number]) OFFICE/OUTPATIENT VISIT EST Diagnosis: Thyromegaly[ICD9: 240.9] Diagnosis: - I - HYPERTENSION[ICD9: 401.9] Diagnosis: ROUTINE MEDICAL EXAM[ICD9: V70.0] Diagnosis: EDEMA[ICD9: 782.3] María Elena APPIAH DO [facility] CPT-4: 35815 05/14/2014 OFFICE/OUTPATIENT VISIT EST Diagnosis: BRONCHITIS, ACUTE[ICD9: 466.0] Diagnosis: SINUSITIS, ACUTE[ICD9: 461.9] María Elena APPIAH DO [facility] CPT-4: 70623 04/21/2014 OFFICE/OUTPATIENT VISIT EST Diagnosis: SINUSITIS, ACUTE[ICD9: 461.9] June Sandra MARÍA ELENA APPIAH DO [facility] CPT-4: 77404 03/04/2014 ([id number]) OFFICE/OUTPATIENT VISIT EST Diagnosis: VACCINE FOR TDAP[ICD10: Z23] María Elena APPIAH DO [facility] CPT-4: 38695 02/27/2014 ([id number]) OFFICE/OUTPATIENT VISIT EST Diagnosis: Seborrheic keratoses, inflamed[ICD9: 702.11] Diagnosis: ACTINIC KERATOSIS[ICD9: 702.0] Diagnosis: INSOMNIA NOS[ICD9: 780.52] [facility]: 96065 01/13/2014 OFFICE/OUTPATIENT VISIT EST Diagnosis: EUSTACHIAN TUBE DYSFUNCTION[ICD9: 381.81] Diagnosis: ALLERGIC RHINITIS[ICD9: 477.9] Diagnosis: Serous otitis media[ICD9: 381.4] [facility]: 32707 12/24/2013 ([id number]) OFFICE/OUTPATIENT VISIT EST Diagnosis: SINUSITIS, ACUTE[ICD9: 461.9] Diagnosis: ALLERGIC RHINITIS[ICD9: 477.9] Diagnosis: EUSTACHIAN TUBE DYSFUNCTION[ICD9: 381.81] María Elena APPIAH [facility] CPT-4: 72868 11/12/2013 ([id number]) OFFICE/OUTPATIENT VISIT EST Diagnosis: ALLERGIC RHINITIS[ICD9: 477.9] Diagnosis: SINUSITIS, ACUTE[ICD9: 461.9] [facility]: 01845 10/21/2013 ([id number]) OFFICE/OUTPATIENT VISIT EST Diagnosis: ASYMPTOMATIC VARICOSE VEINS[ICD9: 454.9] Diagnosis: INSOMNIA NOS[ICD9: 780.52] María Elena Valdes KRISTYN [facility] CPT-4: 26456 09/22/2013 OFFICE/OUTPATIENT VISIT EST Diagnosis: SINUSITIS, ACUTE[ICD9: 461.9] June Flores MARÍA ELENA [facility] CPT-[facility]: 43358 08/27/2013 ([id number]) OFFICE/OUTPATIENT VISIT EST Diagnosis: CEPHALGIA[ICD9: 784.0] Diagnosis: CEPHALGIA, TENSION[ICD9: 307.81] 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] María Elena APPIAH [facility] CPT-4: 59651 08/04/2013 ([id number]) OFFICE/OUTPATIENT VISIT EST Diagnosis: Cervicalgia[ICD9: 723.1] Diagnosis: SPASM OF MUSCLE[ICD9: 728.85] Diagnosis: CEPHALGIA, TENSION[ICD9: 307.81] María Elena APPIAH DO [facility] CPT-4: 08969 07/23/2013 ([id number]) OFFICE/OUTPATIENT VISIT EST Diagnosis: EUSTACHIAN TUBE DYSFUNCTION[ICD9: 381.81] Diagnosis: ALLERGIC RHINITIS[ICD9: 477.9] María Elena APPIAH DO [facility] CPT-4: 00444 06/23/2013 ([id number]) OFFICE/OUTPATIENT VISIT EST Diagnosis: ALLERGIC RHINITIS[ICD9: 477.9] Diagnosis: ACUTE SEROUS OTITIS MEDIA[ICD9: 381.01] Diagnosis: EUSTACHIAN TUBE DYSFUNCTION[ICD9: 381.81] María Elena APPIAH [facility] CPT-4: 96116 05/26/2013 ([id number]) OFFICE/OUTPATIENT VISIT EST Diagnosis: HYPERTENSION[ICD9: 401.9] Diagnosis: EDEMA[ICD9: 782.3] Diagnosis: Serous otitis media[ICD9: 381.4] María Elena APPIAH [facility] CPT-4: 17757 04/16/2013 ([id number]) OFFICE/OUTPATIENT VISIT EST Diagnosis: SINUSITIS, ACUTE[ICD9: 461.9] Diagnosis: ALLERGIC RHINITIS[ICD9: 477.9] Diagnosis: EDEMA[ICD9: 782.3] Diagnosis: Thyromegaly[ICD9: 240.9] Diagnosis: MALAISE AND FATIGUE[ICD9: 780.79] María Elenagael MONTEROQUEDONNA APPIAH [facility] CPT-4: 49451 03/05/2013 ([id number]) OFFICE/OUTPATIENT VISIT EST Diagnosis: PAIN, LOWER BACK[ICD9: 724.2] Diagnosis: SPASM OF MUSCLE[ICD9: 728.85] María Elena Td APPIAH [facility] CPT-4: 82488 12/23/2012 OFFICE/OUTPATIENT VISIT EST Diagnosis: Low back pain[ICD9: 724.2] Lashawn ValdesJj PANDYA [facility] CPT-4: 03133 12/16/2012 ([id number]) OFFICE/OUTPATIENT VISIT EST Diagnosis: PAIN, LOWER BACK[ICD9: 724.2] Diagnosis: SCIATICA[ICD9: 724.3] Diagnosis: Lumbar herniated disc[ICD9: 722.10] María Elena ELLISTaran APPIAH DO [facility] CPT-4: 20516 12/09/2012 ([id number]) OFFICE/OUTPATIENT VISIT EST Diagnosis: PAIN, LOWER BACK[ICD9: 724.2] Diagnosis: SCIATICA[ICD9: 724.3] Diagnosis: LUMBAR DISC DISPLACEMENT[ICD9: 722.10] María Elena ISAAC TANIA APPIAH DO [facility] CPT-4: 18913 12/04/2012 OFFICE/OUTPATIENT VISIT EST Diagnosis: Pneumonia[ICD9: 486] Mary Tillman MARÍA ELENA APPIAH DO [facility] CPT-4: 75359 11/22/2012 ([id number]) OFFICE/OUTPATIENT VISIT EST Diagnosis: PNEUMONIA, ORGANISM[ICD9: 486] Diagnosis: Exacerbation of RAD (reactive airway disease)[ICD9: 493.92] María Elena Seamusabbey MARÍA ELENA Fabiola APPIAH DO [facility] CPT-4: 63160 11/21/2012 OFFICE/OUTPATIENT VISIT EST Diagnosis: HYPERTENSION[ICD9: 401.9] Diagnosis: Cephalgia[ICD9: 784.0] Lashawn MONTEROQUELINE Fabiola APPIAH DO [facility] CPT-4: 17326 10/29/2012 ([id number]) OFFICE/OUTPATIENT VISIT EST Diagnosis: MALAISE AND FATIGUE[ICD9: 780.79] Diagnosis: ARTHRALGIA-MULTIPLE SITES[ICD9: 719.49] María Elena MONTERO APARNAGAEL Fabiola APPIAH DO [facility] CPT-4: 66681 10/14/2012 ([id number]) OFFICE/OUTPATIENT VISIT EST Diagnosis: URINARY FREQUENCY[ICD9: 788.41] María Elena Seamusabbey MONTEROMARÍA ELENA Fabiola APPIAH DO [facility] CPT-4: 92342 09/27/2012 ([id number]) OFFICE/OUTPATIENT VISIT EST Diagnosis: MALAISE AND FATIGUE[ICD9: 780.79] Diagnosis: ARTHRALGIA-MULTIPLE SITES[ICD9: 719.49] María Elena MONTERO APARNAGAEL Fabiola APPIAH DO [facility] CPT-4: 25228 09/25/2012 ([id number]) OFFICE/OUTPATIENT VISIT EST Diagnosis: SINUSITIS, ACUTE[ICD9: 461.9] Diagnosis: EUSTACHIAN TUBE DYSFUNCTION[ICD9: 381.81] María Elena APPIAH [facility] CPT-4: 54809 08/29/2012 OFFICE/OUTPATIENT VISIT EST Diagnosis: ACTINIC KERATOSIS[ICD9: 702.0] Diagnosis: Inflamed seborrheic keratosis[ICD9: 702.11] Diagnosis: Skin cancer of face[ICD9: 173.31] Diagnosis: HYPERTENSION[ICD9: 401.9] María Elena SEYMOUR [facility] CPT-4: 28009 08/12/2012 ([id number]) OFFICE/OUTPATIENT VISIT EST Diagnosis: ARTHRALGIA-MULTIPLE SITES[ICD9: 719.49] Diagnosis: GOUT[ICD9: 274.9] Diagnosis: HYPERTENSION[ICD9: 401.9] Diagnosis: Tachycardia[ICD9: 785.0] María Elena ValdesJj FRITZ KARLOS [facility] CPT-4: 25142 05/06/2012 ([id number]) OFFICE/OUTPATIENT VISIT EST Diagnosis: INSOMNIA NOS[ICD9: 780.52] María Elena ValdesJj [facility]: 03148 04/03/2012 ([id number]) OFFICE/OUTPATIENT VISIT EST Diagnosis: INSOMNIA NOS[ICD9: 780.52] Diagnosis: HYPERTENSION[ICD9: 401.9] Diagnosis: MIGRAINE NOS/NOT INTRCBL[ICD9: 346.90] María Elena MONTEROLui MARIN LucioJj TD [facility] CPT-4: 36959 03/19/2012 ([id number]) OFFICE/OUTPATIENT VISIT EST Diagnosis: CELLULITIS[ICD9: 682.9] Diagnosis: Ankle pain[ICD9: 719.47] Diagnosis: HYPERTENSION[ICD9: 401.9] María Elena ValdesJj SEAMUS NDER [facility] CPT-4: 80519 02/20/2012 ([id number]) OFFICE/OUTPATIENT VISIT EST Diagnosis: MIGRAINE NOS/NOT INTRCBL[ICD9: 346.90] Diagnosis: Vomiting[ICD9: 787.03] María Elena MONTEROQUELINE LucioJj SEAMUSNDE [facility] CPT-4: 15198 01/30/2012 ([id number]) OFFICE/OUTPATIENT VISIT EST Diagnosis: EDEMA[ICD9: 782.3] Diagnosis: HYPERTENSION[ICD9: 401.9] Diagnosis: ALLERGIC RHINITIS[ICD9: 477.9] Diagnosis: ARTHRALGIA-MULTIPLE SITES[ICD9: 719.49] María Elena REED LucioJj TD [facility] CPT-4: 00717 01/24/2012 ([id number]) OFFICE/OUTPATIENT VISIT EST Diagnosis: SPASM OF MUSCLE[ICD9: 728.85] Diagnosis: Thoracic back pain[ICD9: 724.1] Diagnosis: Cervical pain[ICD9: 723.1] María Elena Hicks KRISTYN PANDYA [facility] CPT-4: 40865 01/10/2012 OFFICE/OUTPATIENT VISIT EST Diagnosis: PAIN, LOWER BACK[ICD9: 724.2] Diagnosis: LUMBAR DISC DISPLACEMENT[ICD9: 722.10] María Elena MARIN LucioJj TD [facility] CPT-4: 36777 12/11/2011 OFFICE/OUTPATIENT VISIT EST Diagnosis: MIGRAINE NOS/NOT INTRCBL[ICD9: 346.90] Diagnosis: SINUSITIS, ACUTE[ICD9: 461.9] María Elena JUARES Luc[facility]Jj [facility]: 22271 11/09/2011 OFFICE/OUTPATIENT VISIT EST Diagnosis: MIGRAINE NOS/NOT INTRCBL[ICD9: 346.90] Diagnosis: LYMPHADENOPATHY[ICD9: 785.6] María Elena Hicks SEAMUSMINDIVICTORINO [facility] CPT-4: 18827 09/13/2011 OFFICE/OUTPATIENT VISIT EST Diagnosis: MALAISE AND FATIGUE[ICD9: 780.79] Diagnosis: ARTHRALGIA-MULTIPLE SITES[ICD9: 719.49] María Elena Hicks TD [facility] CPT-4: 56302 08/31/2011 OFFICE/OUTPATIENT VISIT EST Diagnosis: SINUSITIS, ACUTE[ICD9: 461.9] María Elena Hicks [facility]: 72744 07/20/2011 OFFICE/OUTPATIENT VISIT EST Diagnosis: HYPERTENSION[ICD9: 401.9] Diagnosis: PAIN, LOWER BACK[ICD9: 724.2] Diagnosis: SPASM OF MUSCLE[ICD9: 728.85] María Elena APPIAH DO [facility] CPT-4: 69373 07/06/2011 OFFICE/OUTPATIENT VISIT EST Diagnosis: MIGRAINE NOS/NOT INTRCBL[ICD9: 346.90] Diagnosis: HYPERTENSION[ICD9: 401.9] María Elena SEYMOUR DO [facility] CPT-4: 94437 05/22/2011 OFFICE/OUTPATIENT VISIT EST Diagnosis: SINUSITIS, ACUTE[ICD9: 461.9] Diagnosis: MIGRAINE NOS/NOT INTRCBL[ICD9: 346.90] Diagnosis: Dehydration[ICD9: 276.51] Diagnosis: Vomiting[ICD9: 787.03] María Elena Waymindivictorino ELLISMARÍA ELENA LucioJj CRIO Bazzi DO [facility] CPT-4: 14399 05/09/2011 ([id number]) OFFICE/OUTPATIENT VISIT EST María Elena Seamusmindivictorino ISAAC UJARED S. ORENDER DO [facility] CPT-4: 87592 02/14/2011 ([id number]) OFFICE/OUTPATIENT VISIT EST María Elena Td ISAAC UJARED S. ORENDER DO [facility] CPT-4: 43534 02/03/2011 ([id number]) OFFICE/OUTPATIENT VISIT EST María Elena ISAAC UJARED SJj ORENDER DO [facility] CPT-4: 24453 01/31/2011 ([id number]) OFFICE/OUTPATIENT VISIT EST María Elena Seamusmindivictorino ISAAC UELINE S. ORENDER DO [facility] CPT-4: 83127 01/25/2011 ([id number]) OFFICE/OUTPATIENT VISIT EST María Elena ISAAC UELINE S. ORENDER DO [facility] CPT-4: 71264 01/18/2011 ([id number]) OFFICE/OUTPATIENT VISIT EST María Elena Seamusmindivictorino ISAAC UJARED S. ORENDER DO [facility] CPT-4: 08476 11/29/2010 ([id number]) OFFICE/OUTPATIENT VISIT, EST María Elena Seamusmindivictorino BRAUNGAEL SJj ORENDER DO [facility] CPT-4: 47735 10/10/2010 ([id number]) OFFICE/OUTPATIENT VISIT, EST María Elena Seamusabbey [facility] CPT-4: 64397 06/07/2010 ([id number]) OFFICE/OUTPATIENT VISIT, EST María Elena JERONIMO CPT-4: 40493 04/27/2010 ([id number]) OFFICE/OUTPATIENT VISIT, EST María Elena APPIAH [facility] CPT-4: 60754 04/05/2010 ([id number]) OFFICE/OUTPATIENT VISIT, EST María Elena WAYNDER [facility] CPT-4: 51135 03/09/2010 ([id number]) OFFICE/OUTPATIENT VISIT, EST María Elena JERONIMO CPT-4: 50552 03/03/2010 ([id number]) OFFICE/OUTPATIENT VISIT, EST María Elena [facility] CPT-4: 50928 01/17/2010 ([id number]) PREV VISIT, EST, AGE 40-64 María Elena APPIAH DO [facility] CPT-4: 10724 12/27/2009 Plan of Care Planned Activity Notes [...] E11.65 10/07/2019 Appointment: Kathleen Zuniga [address] [facility] [place] OFFICE SURGERY 10/07/2019 Visit Diagnosis Plan: [...] E11.65 09/30/2019 Appointment: María Elena Appiah WPtel: [address] [place], [place] [phone] [place] CHECK UP 09/30/2019 Patient Education: Premarin- [employer] Coupon [id number] https://www.[employer]/samplemd/resources/getResource/61/[email or web address]-l4 Completed 09/30/2019 Appointment: María Elena Appiah WPtel: [address] [place], [place] [phone] [place] LAB 09/29/2019 Appointment: María Elena Appiah WPtel: [address] [place], [place] [phone] [place] Won't have the new insurance till [...] 05/28/2019 Appointment: María Elena Appiah WPtel: [address] [place], [place] [phone] [place] FOLLOW UP 05/28/2019 Appointment: María Elena Appiah WPtel: [address] [place] [address] US BP CHECK 05/19/2019 Visit Diagnosis Plan: [...] : Z79.890 01/22/2019 Appointment: María Elena Appiahtel: [address] [place], [place] [phone] [place] FOLLOW UP 01/22/2019 Patient Education: estradiol- [employer] Coupon [id number] https://www.[employer]/samplemd/resources/getResource/61/[email or web address] Completed 01/22/2019 Appointment: María Elena Appiahtel: [address] [place], [place] [phone] [place] CANCELED 01/20/2019 Appointment: María Elena Appiah WPtel: [address] [place] [address] LM NO SHOW 01/06/2019 Appointment: María Elena Appiah WPtel: [address] [place] [address] [place] CANCELED 10/17/2018 Appointment: María Elena Appiah WPtel: [address] [place] [address] US BP CHECK 10/09/2018 Visit Diagnosis Plan: [...] I10 09/30/2018 Appointment: María Elena Appiah WPtel: [address] [place] [address] [place] FOLLOW UP 09/30/2018 Visit Diagnosis Plan: [...] F51.01 08/27/2018 Appointment: María Elena Appiah WPtel: [address] [place] [address] ACUTE ILLNESS 08/27/2018 Appointment: María Elena Appiah WPtel: [address] [place] [address] [place] Patient stated she went out to [...] Tyle... 08/09/2018 Appointment: María Elena Appiah WPtel: [address] [place] [address] ACUTE ILLNESS 08/09/2018 Appointment: María Elena Appiah WPtel: [address] [place] [address] NO SHOW 08/08/2018 Visit Diagnosis Plan: Anxiety [...] B35.4 07/22/2018 Appointment: María Elena Appiah WPtel: [address] [place] [address] ACUTE ILLNESS 07/22/2018 Appointment: María Elena Appiah WPtel: [address] [place] [address] [place] INJECTION 06/19/2018 Patient Education: Patient Medication [...] : L03.031 06/17/2018 Appointment: Kathleen Zuniga [address] [place] [address] ACUTE ILLNESS 06/17/2018 Patient Education: Patient Medication [...] ICD-10 : B02.9 05/16/2018 Appointment: Kathleen Zuniga [address] [place] [address] ACUTE ILLNESS 05/16/2018 Patient Education: Patient Medication [...] ICD-10 : L03.115 03/20/2018 Appointment: Kathleen Zuniga [address] [place] [address] FOLLOW UP 03/20/2018 Patient Education: Patient Medication [...] ICD-10 : L03.115 03/18/2018 Appointment: Kathleen Zuniga [address] [place], [place] [phone] FOLLOW UP 03/18/2018 Patient Education: Patient Medication [...] ICD-10 : L03.115 03/15/2018 Appointment: Kathleen Zuniga [address] [place] [address] ACUTE ILLNESS 03/15/2018 Patient Education: Patient Medication [...] ICD-10 : J01.90 02/11/2018 Appointment: Kathleen Zuniga [address] [place], [place] [phone] ACUTE ILLNESS 02/11/2018 Patient Education: Patient Medication [...] ICD-10 : M51.16 01/30/2018 Appointment: Kathleen Zuniga [address] [place] [address] ACUTE ILLNESS 01/30/2018 Patient Education: Patient Medication [...] 12/18/2017 Appointment: María Elena Appiah WPtel: [phone] [id number] Annual Well Visit 12/18/2017 Patient Education: Patient Medication Summary Completed 12/18/2017 Care Plan: Referral Order SNOMED-CT : [id number] Pending 12/18/2017 Appointment: María Elena Appiah WPtel: [...] : L03.031 12/07/2017 Appointment: Kathleen Zuniga [address] [facility] ACUTE ILLNESS 12/07/2017 Patient Education: [...] : J01.00 10/08/2017 Appointment: Kathleen Zuniga [address] [facility] ACUTE ILLNESS 10/08/2017 Patient Education: Patient [...] ICD-10 : R06.83 09/20/2017 Appointment: Kathleen Zuniga [address] [place], [place] [id number] ACUTE ILLNESS 09/20/2017 Patient [...] ICD-10 : L60.0 08/29/2017 Appointment: Kathleen Zuniga [address] [place], [place] [id number] OFFICE SURGERY 08/29/2017 Patient Education: Patient Medication Summary Completed 08/29/2017 Visit Diagnosis Plan: Actinic keratosis Discussion: Cr yotherapy as above ICD-9 : 702.0 ICD-10 : L57.0 08/01/2017 Appointment: María Elena Appiah WPtel: [address] [place], [place] [address] OFFICE SURGERY 08/01/2017 Patient Education: Patient Medication Summary Completed 08/01/2017 Appointment: María Elena Appiah WPtel: [address] [place] [address] PATIENT THOUGHT APPOINTMENT WAS TOMORROW 07/26/17 CALLED 15 MINUTES BEFORE APPT TO SAY SHE DIDN'T HAVE ANYONE TO COVER HER BUSINESS AND WOULD NOT MAKE IT NO SHOW 07/25/2017 Visit Diagnosis Plan: Cellulitis of left toe Discussio n: Clindamycin and notify if worsening or persistis ICD-9 : 681.10 ICD-10 : L03.032 07/19/2017 Appointment: María Elena Appiah WPtel: [address] [place] [address] MEDICATION REVIEW 07/19/2017 Patient Education: Patient Medication Summary Completed 07/19/2017 Appointment: María Elena Appiah WPtel: [address] [place] [address] CANCELED 07/04/2017 Visit Diagnosis Plan: Generalized hyperhidrosis Discus ian: CBC, CMP, TSH, free T4 ordered to assess. will review labs. ICD-9 : 780.8 ICD-10 : R61 06/27/2017 Visit Diagnosis Plan: Chronic sinusitis, unspecified D iscussion: Referral sent to dr. albarado in [place] per patient request. patient has been treated multiple times for sinus infections with no recovery. patient was seen by dr sanchez in the past with no interventions. patient has deviated septum which may be affecting her sinuses. 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, including hip Discussion: Shave removal of above lesio n--sent to pathology ICD-9 : 216.7 ICD-10 : D23.72 01/24/2017 Appointment: María Elena Appiah WPtel: [address] [place], [place] [address] 01/23 confirmed ~sl OFFICE SURGERY 01/24/2017 Patient Education: Patient Medication Summary Completed 01/24/2017 Appointment: Loan Sánchez [address] [place] [address] 01/09 rescheduled~sl RESCHEDULED 01/15/2017 Visit Diagnosis Plan: [...] 12/13/2016 Appointment: María Elena [facility] [phone] [id number] [place] 12/12 confirmed ~ MEDICATION REVIEW 12/13/2016 Patient Education: Patient Medication Summary Completed 12/13/2016 Appointment: María Elena [facility] [phone] [id number] [place] rescheduled for 12/13/16 at 11am RESCHEDULED 0 12/06/2016 Appointment: María Elena [facility] [phone] [id number] [place] CANCELED 11/23/2016 Patient Education: Patient [...] 11/01/2016 Appointment: María Elena [facility]iah [facility] [phone] [id number] [place] 10/31 lm `sl 11/01 lm` MEDICATION REVIEW 017 Patient Education: Patient Medication Summary Completed 11/01/2016 Referral: Canelo Overton WPtel[facility] [phone] [id number] [place] Referral Initiated 10/30/2016 Visit Diagnosis Plan: [...] 10/17/2016 Appointment: María Elena Appiah WPtel: [address] [place], [place] [phone] 10/16 confirmed ~sl PAP 10/17/2016 Patient Education: Patient Medication Summary Completed 10/17/2016 Care Plan: MAMMOGRAM SCREENING LOINC : 2 [id number] Pending 10/17/2016 Visit Diagnosis Plan: Other seasonal allergic rhinitis Discussion: Decadron/Garamycin Nasal Shirley Mix Too soon for steroid Retry zyrtec 10mg daily ICD-9 : 477.9 ICD-10 : J30.2 10/10/2016 Appointment: María Elena Appiah WPtel: [address] [place], [place] [phone] FOLLOW UP 10/10/2016 Patient Education: Patient Medication Summary Completed 10/10/2016 Appointment: María Elena Appiah WPtel: [address] [place], [place] [phone] 10/02 reschedule `sl RESCHEDULED 10/02/2016 Visit Plan: See surgery for removal of n ew left arm lesion and right foot lesion Lyrica to use next month for left arm paresthesias Continue current meds Discussed sunscreen/sunblock combo 09/19/2016 Appointment: María Elena Appiah WPtel: [address] [place], [place] [phone] 09/18 confirmed ~sl FOLLOW UP 09/19/2016 Patient Education: Patient Medication Summary Completed 09/19/2016 Patient Education: Patient Medication Summary Completed 09/18/2016 Care Plan: MAMMOGRAM BOTH BREASTS LOINC : 14947-9 Pending 09/18/2016 Visit Plan: Discussed that needs [...] sinuses 08/24/2016 Appointment: María Elena Appiah WPtel: [address] [place] [address] ACUTE ILLNESS 08/24/2016 Patient Education: Patient Medication Summary Completed 08/24/2016 Patient Education: Patient Medication Summary Completed 08/23/2016 Care Plan: MAMMOGRAM SCREENING LOINC : 2 6347-5 Pending 08/23/2016 Visit Plan: Finish doxycycline Add Breo 100/25 1 p BID for 2 weeks If not improving within next 2 days will get CXR 08/16/2016 Appointment: María Elena Appiah WPtel: [address] [place] [address] ACUTE ILLNESS 08/16/2016 Patient Education: Patient Medication Summary Completed 08/16/2016 Visit Plan: Supportive care. Rest, Fluid s, Tylenol/Motrin prn fever or bodyaches. Notify if worsening symptoms. Doxycyline and Prednisone 08/10/2016 Appointment: María Elena Appiah WPtel: [address] [place] [address] 08/09 lm`sl....confirmed-sp FOLLOW UP 09/2015 Patient Education: Patient Medication Summary Completed 08/10/2016 Visit Plan: Saline nasal flushes prn. Ty lenol/Motrin prn headache. Notify if persists/symptoms worsening. Dexamethasone 8mg IM today May use coricedan and mucinex 08/02/2016 Appointment: María Elena Appiah WPtel: [address] [place] [address] ACUTE ILLNESS 08/02/2016 Patient Education: Patient Medication Summary Completed 08/02/2016 Visit Plan: Cryotherapy as above and lef t forearm lesion removal as above with 5-0 punch biopsy and sent to path Return in 10 days for suture removal 08/01/2016 Appointment: María Elena Appiah WPtel: [address] [place], [place] [phone] 07/31 confirmed`~sl OFFICE SURGERY 08/01/2016 Patient Education: Patient Medication Summary Completed 08/01/2016 Visit Plan: Stop clindamycin Check CBC, CMP, ESR now/STAT 07/27/2016 Appointment: María Elena Appiah WPtel: [address] [place], [place] [phone] ACUTE ILLNESS 07/27/2016 Patient Education: Patient Medication Summary Completed 07/27/2016 Visit Plan: Update lab and check ABIs to start with Will likely need cardiology evaluation to rule out PVD Clindamycin for 10 days Daily yogurt or probiotic Will return for removal of left arm lesions 07/20/2016 Appointment: María Elena Appiah WPtel: [address] [place], [place] [id number] ACUTE ILLNESS 07/20/2016 Patient Education: Patient Medication Summary Completed 07/20/2016 Patient Education: Patient Medication Summary Completed 07/20/2016 Care Plan: MAMMOGRAM BOTH BREASTS LOINC : 54361-7 Pending 07/20/2016 Care Plan: US EXAM CHEST LOINC : 87000-4 Pending 07/20/2016 Visit Plan: Wound culture collected from left great toe Appearance is somewhat staph like Rx as above Wound cleanser and skin care reviewed May need to add oral antibiotic if sores do not heal or continue to reoccur 07/06/2016 Appointment: Loan Sánchez [address] [id number] ACUTE ILLNESS 07/06/2016 Patient Education: Patient Medication Summary Completed 07/06/2016 Appointment: María Elena Appiah WPtel: [address] [place], [place] [phone] [place] INJECTION 05/25/2016 Patient Education: Patient Medication Summary Completed 05/25/2016 Visit Plan: Saline nasal flushes prn. Ty lenol/Motrin prn headache. Notify if persists/symptoms worsening. Dexamethasone and Rocephin given 04/26/2016 Appointment: María Elena Appiah WPtel: [address] [place] [address] ACUTE ILLNESS 04/26/2016 Patient Education: Patient Medication Summary Completed 04/26/2016 Visit Plan: Check CBC, CMP, TSH, FreeT4, HbA1C, estradiol, lipids in AM 03/02/2016 Appointment: María Elena Appiah WPtel: [address] [place] [address] 03/01 lm~sl ACUTE ILLNESS 03/02/2016 Patient Education: Patient Medication Summary Completed 03/02/2016 Visit Plan: Exam is nearly normal Needs to be taking daily antihistamine Would prefer to use oral steroids instead of shot but patient insist that oral steroids cause horrible headaches for her Will given kenalog IM instead 02/09/2016 Appointment: Loan Sánchez [address] [place] [address] ACUTE ILLNESS 02/09/2016 Patient Education: Patient Medication Summary Completed 02/09/2016 Visit Plan: Culture urine Macrobid DC xa nax Trial of Ativan 1mg q HS 01/24/2016 Appointment: María Elena Appiah WPtel: [address] [place] [address] ACUTE ILLNESS 01/24/2016 Patient Education: Patient Medication Summary Completed 01/24/2016 Visit Plan: No steroid or rocephin injec tion warranted Can have oral prednisone Continue current home regimen Needs to follow up with Dr Sanchez if problems persist 12/23/2015 Appointment: Loan Sánchez [address] [place] [address] ACUTE ILLNESS 12/23/2015 Patient Education: Patient Medication Summary Completed 12/23/2015 Visit Plan: Saline nasal flushes prn. Ty lenol/Motrin prn headache. Notify if persists/symptoms worsening. Kenalog 40mg IM today 12/08/2015 Appointment: María Elena Appiah WPtel: [address] [place] [address] 12/06 confirmed~sl ACUTE ILLNESS 12/08/2015 Patient Education: Patient Medication Summary Completed 12/08/2015 Appointment: María Elena Appiah WPtel: [address] [place] [address] ACUTE ILLNESS 11/18/2015 Patient Education: Patient Medication Summary Completed 10/11/2015 Appointment: María Elena Appiah WPtel: [address] [place] [address] [place] INJECTION 10/07/2015 Patient Education: Patient Medication Summary Completed 10/07/2015 Visit Plan: Check renal arterial doppler s and ECHO Change amlodopine to lotrel 5/20mg q HS Will need stress test as well Check CMP, uric acid, ESR 10/06/2015 Appointment: María Elena Appiah WPtel: [address] [place] [address] ACUTE ILLNESS 10/06/2015 Patient Education: Patient Medication Summary Completed 10/06/2015 Patient Education: [facility] - [employer] - Amlodipine Besylate - 18-64 - Dynamic Portal ID Completed 10/06/2015 Appointment: María Elena Appiah WPtel: [address] [place] [address] FOLLOW UP 09/22/2015 Visit Plan: Cephalexin 500 mg PO bid Mery ly topical Mupirocin to lesions on left lateral neck and face Follow-up in one week. Sooner if symptoms worsen 09/14/2015 Appointment: June Flores WPtel: [address] [place] [address] ACUTE ILLNESS 09/14/2015 Patient Education: Patient Medication Summary Completed 09/14/2015 Visit Plan: Change bystolic to bedtime d osing and amlodopine to morning dosing Cryotherapy as above to AKs 09/07/2015 Appointment: María Elena Appiah WPtel: [address] [place] [address] 09/06 appointment made and confirmed ~ FOLLOW UP 09/07/2015 Patient Education: Patient Medication Summary Completed 09/07/2015 Visit Plan: Increase bystolic back to 20 mg daily but will split and take 10mg in AM and 10mg in PM Stress Reducers 08/18/2015 Appointment: María Elena Appiah WPtel: [address] [place] [address] 08/17/15 appt confirmed cn ACUTE ILLNESS 08/18 Patient Education: Patient Medication Summary Completed 08/18/2015 Appointment: María Elena Appiah WPtel: [address] [place] [address] BP CHECK 07/07/2015 Patient Education: Patient Medication Summary Completed 07/07/2015 Appointment: María Elena Appiah WPtel: [address] [place] [address] BP CHECK 06/24/2015 Patient Education: Patient Medication Summary Completed 06/24/2015 Appointment: María Elena Appiah WPtel: [address] [place] [address] BP CHECK 06/21/2015 Patient Education: Patient Medication Summary Completed 06/21/2015 Visit Plan: Lab discussed Continue curre nt meds and lifestyle modification Recheck lab in 6mos 06/16/2015 Appointment: María Elena Appiah WPtel: [address] [place] [address] 06/15 confirmed FOLLOW UP 06/16/2015 Patient Education: Patient Medication Summary Completed 06/16/2015 Patient Education: Patient Medication Summary Completed 06/15/2015 Visit Plan: Increase cymbalta to 60mg q HS Keep clonidine at current dose Recheck 2weeks Change xanax to klonopin 06/02/2015 Appointment: María Elena Appiah WPtel: [address] [place] [address] 06/02 lm FOLLOW UP 06/02/2015 Patient Education: Patient Medication Summary Completed 06/02/2015 Appointment: María Elena Appiah WPtel: [address] [place] [address] ACUTE ILLNESS 05/24/2015 Visit Plan: Increase clonidine to 0.2mg q HS Add cymbalta 30mg q HS Recheck 2weeks Stress Reducers Check fasting lab Discussed sleep study 05/20/2015 Appointment: María Elena Appiah WPtel: [address] [place] [address] ACUTE ILLNESS 05/20/2015 Patient Education: Patient Medication Summary Completed 05/20/2015 Patient Education: [facility] - [employer] - Cymbalta - 18-64 - Dynamic Portal ID Completed 05/20/2015 Appointment: María Elena Appiah WPtel: [address] [place] [address] BP CHECK 05/19/2015 Patient Education: Patient Medication Summary Completed 05/19/2015 Visit Plan: Topical Bactroban alternatin g with topical betamethasone Recheck 2weeks 05/10/2015 Appointment: María Elena Appiah WPtel: [address] [place] [address] 05/07 vm cn...05/07 appt confirmed OFFICE SURGER Y 05/10/2015 Patient Education: Patient Medication Summary Completed 05/10/2015 [facility]: [facility] [address] Referral Initiated 05/04/2015 Visit Plan: Saline nasal flushes prn. Ty lenol/Motrin prn headache. Notify if persists/symptoms worsening. Depomedrol 40mg IM today 03/16/2015 Appointment: María Elena Appiah WPtel: [address] [place] [address] ACUTE ILLNESS 03/16/2015 Patient Education: Patient Medication Summary Completed 03/16/2015 Appointment: María Elena Appiah WPtel: [address] [place] [address] ER Follow UP 03/09/2015 Visit Plan: Cryotherapy to lesions as ab ove 10/27/2014 Appointment: María Elena Appiah WPtel: [address] [place], [place] [phone] OFFICE SURGERY 10/27/2014 Patient Education: Patient Medication Summary Completed 10/27/2014 Appointment: June Flores WPtel: [address] [place], [place] [phone] ACUTE ILLNESS 09/11/2014 Patient Education: Patient Medication Summary Completed 09/11/2014 Visit Plan: Lab discussed Lipitor 10mg d aily Coenzyme Q-10 400mg daily Vitamin D3 5000u daily Recheck lipids with LFTs in 3mos then fwup 08/31/2014 Appointment: María Elena Appiah WPtel: [address] [place] [address] 08/28 voicewvil FOLLOW UP 08/31/2014 Patient Education: Patient Medication Summary Completed 08/31/2014 Appointment: María Elena Appiah WPtel: [address] [place], [place] [phone] [place] LAB 08/27/2014 Appointment: María Elena Appiah WPtel: [address] [place], [place] [phone] [place] LAB 08/27/2014 Patient Education: Patient Medication Summary Completed 08/27/2014 Appointment: María Elena Appiah WPtel: [address] [place] [address] ACUTE ILLNESS 07/23/2014 Appointment: María Elena Appiah WPtel: [address] [place] [address] ACUTE ILLNESS 07/21/2014 Patient Education: Patient Medication Summary Completed 07/21/2014 Visit Plan: Kenalog 40mg IM today Contin ue narendra and singulair Add Flonase 07/15/2014 Appointment: María Elena Appiah WPtel: [address] [place], [place] [phone] ACUTE ILLNESS 07/15/2014 Appointment: María Elena Appiah WPtel: [address] [place] [phone] ACUTE ILLNESS 07/15/2014 Patient Education: Patient Medication Summary Completed 07/15/2014 Visit Plan: Will do metolazone 2.5mg prn with 6 potassium and see if causes as severe cramping Trial of of seroquel XR 50mg q PM with evening meal and let us know how works 05/18/2014 Appointment: María Elena Appiah WPtel: [address] [place], [place] [phone] 05/15 left message FOLLOW UP 05/18/2014 Patient Education: Patient Medication Summary Completed 05/18/2014 Appointment: María Elena Appiah WPtel: [address] [place], [place] [phone] LAB 05/14/2014 Patient Education: Patient Medication Summary Completed 05/14/2014 Appointment: María Elena Appiah WPtel: [address] [place] [phone] [place] INJECTION 04/22/2014 Visit Plan: Kimo and Miranda today a nd finish abx given from urgent care 04/21/2014 Appointment: María Elena Appiah WPtel: [address] [place] [phone] [place] INJECTION 04/21/2014 Patient Education: Patient Medication Summary Completed 04/21/2014 Appointment: June Flores WPtel: [address] [place], [place] [phone] ACUTE ILLNESS 03/04/2014 Patient Education: Patient Medication Summary Completed 03/04/2014 Appointment: María Elena Appiah WPtel: [address] [place] [phone] [place] INJECTION 02/27/2014 Patient Education: Patient Medication Summary Completed 02/27/2014 Visit Plan: Cryotherapy as above to all lesions Patient wants to try no meds for insomnia for a while and see how goes 01/13/2014 Appointment: María Elena Appiah WPtel: [address] [place] [address] OFFICE SURGERY 01/13/2014 Patient Education: Patient Medication Summary Completed 01/13/2014 Visit Plan: Stop Melatonin Stop Soma Tri al of trazadone 75mg q HS See ENT for possible tubes as has had chronic ETD and serous otitis media with numerous steroids 12/24/2013 Appointment: María Elena Appiah WPtel: [address] [place] [address] ACUTE ILLNESS 12/24/2013 Patient Education: Patient Medication Summary Completed 12/24/2013 Visit Plan: Saline nasal flushes prn. Ty lenol/Motrin prn headache. Notify if persists/symptoms worsening. 11/12/2013 Appointment: María Elnea Appiah WPtel: [address] [place] [address] ACUTE ILLNESS 11/12/2013 Patient Education: Patient Medication Summary Completed 11/12/2013 Appointment: María Elena Appiah WPtel: [address] [place] [address] ACUTE ILLNESS 10/21/2013 Patient Education: Patient Medication Summary Completed 10/21/2013 Visit Plan: Sleep hygiene and sleep rout ine Melatonin 10mg q HS Support stockings and observe 09/22/2013 Appointment: María Elena Appiah WPtel: [address] [place] [address] ACUTE ILLNESS 09/22/2013 Patient Education: Patient Medication Summary Completed 09/22/2013 Appointment: June Flores WPtel: [address] [place] [address] ACUTE ILLNESS 08/27/2013 Patient Education: Patient Medication Summary Completed 08/27/2013 Visit Plan: Proceed with CT scan of head /neck Proceed with occipital nerve injections Butrans 20mcg patch weekly until can get into see Dr. Mcdonough for injections 08/04/2013 Appointment: María Elena Appiah WPtel: [address] [place] [address] FOLLOW UP 08/04/2013 Patient Education: Patient Medication Summary Completed 08/04/2013 Visit Plan: OMT done Daily neck stretche s, moist heat Increase Celebrex to 200mg BID Add flexeril 07/23/2013 Appointment: María Elena Appiah WPtel: [address] [place] [address] 07/22 voicemail FOLLOW UP 07/23/2013 Patient Education: Patient Medication Summary Completed 07/23/2013 Appointment: María Elena Appiah WPtel: [address] [place] [address] ACUTE ILLNESS 06/23/2013 Patient Education: Patient Medication Summary Completed 06/23/2013 Appointment: María Elena Appiah WPtel: [address] [place] [address] ACUTE ILLNESS 05/26/2013 Patient Education: Patient Medication Summary Completed 05/26/2013 Visit Plan: Decrease clonidine to 0.1mg TID If BP remains stable consider decreasing amlodopine Prednisone for 5 days BP check in 1mo 04/16/2013 Appointment: María Elena Appiah WPtel: [address] [place] [address] 04/14 pt called and confirmed appt FOLLOW UP 04/16/2013 Patient Education: Patient Medication Summary Completed 04/16/2013 Appointment: María Elena Appiah WPtel: [address] [place] [address] ACUTE ILLNESS 03/05/2013 Patient Education: Patient Medication Summary Completed 03/05/2013 Visit Plan: Pt has MARIA ELENA on with Dr. Sharonda Arita Butrans patch Refill Hydrocodone early tomorrow 12/23/2012 Appointment: María Elena Appiah WPtel: [address] [place] [address] FOLLOW UP 12/23/2012 Patient Education: Patient Medication Summary Completed 12/23/2012 Appointment: Lashawn Eckert WPtel: [address] [place] [address] ACUTE ILLNESS 12/16/2012 Patient Education: Patient Medication Summary Completed 12/16/2012 Visit Plan: Proceed with updated MRI of LS spine Continue gabapentin and add soma and diclofenac Will likely need to go for another epidural 12/09/2012 Appointment: María Elena Appiah WPtel: [address] [place], [place] [phone] ACUTE ILLNESS 12/09/2012 Patient Education: Patient Medication Summary Completed 12/09/2012 Visit Plan: Injection as above Finish me drol dose pack Chiropracter this afternoon 12/04/2012 Appointment: María Elena Appiah WPtel: [address] [place] [address] ACUTE ILLNESS 12/04/2012 Patient Education: Patient Medication Summary Completed 12/04/2012 Appointment: Mary Tillman WPtel: [address] [place] [address] FOLLOW UP 11/22/2012 Patient Education: Patient Medication Summary Completed 11/22/2012 Appointment: María Elena Appiah WPtel: [address] [place] [address] ACUTE ILLNESS 11/21/2012 Patient Education: Patient Medication Summary Completed 11/21/2012 Appointment: María Elena Appiah WPtel: [address] [place] [address] BP CHECK 11/07/2012 Patient Education: Patient Medication [...] re-check. 10/29/2012 Appointment: Lashawn Eckert WPtel: [address] [place] [address] ACUTE ILLNESS 10/29/2012 Patient Education: Patient Medication Summary Completed 10/29/2012 Appointment: María Elena Appiah WPtel: [address] [place], [place] [phone] ACUTE ILLNESS 10/14/2012 Patient Education: Patient Medication Summary Completed 10/14/2012 Appointment: María Elena Appiah WPtel: [address] [place], [place] [phone] UA 09/27/2012 Patient Education: Patient Medication Summary Completed 09/27/2012 Appointment: María Elena Appiah WPtel: [address] [place], [place] [phone] ACUTE ILLNESS 09/25/2012 Patient Education: Patient Medication Summary Completed 09/25/2012 Appointment: María Elena Appiah WPtel: [address] [place] [address] BP CHECK 09/24/2012 Appointment: María Elena Appiah WPtel: [address] [place], [place] [phone] ACUTE ILLNESS 08/29/2012 Patient Education: Patient Medication Summary Completed 08/29/2012 Visit Plan: Cryotherapy as above See Karlos m for right ear lesion--probable MOHs procedure Increase amlodopine to 10mg daily 08/12/2012 Appointment: María Elena Appiah WPtel: [address] [place], [place] [phone] OFFICE SURGERY 08/12/2012 Patient Education: Patient Medication Summary Completed 08/12/2012 Appointment: María Elena Appiah WPtel: [address] [place], [place] [phone] 05/03 vm on pt phone...pt called on 04/11 3 pt called wanting in had no one cancel so could not get her in for an appt sooner than 05/06. ACUTE ILLNESS 05/06/2012 Patient Education: Patient Medication Summary Completed 05/06/2012 Visit Plan: Pt wants to hold on any furt her sleep medications 04/03/2012 Appointment: María Elena Appiah WPtel: [address] [place] [address] US FOLLOW UP 04/03/2012 Patient Education: Patient Medication Summary Completed 04/03/2012 Appointment: María Elena Appiah WPtel: [address] [place] [address] US FOLLOW UP 03/19/2012 Patient Education: Patient Medication Summary Completed 03/19/2012 Appointment: María Elena Appiah WPtel: [address] [place] [address] BP CHECK 02/22/2012 Patient Education: Patient Medication Summary Completed 02/22/2012 Appointment: María Elena Appiahtel: [address] [place] [address] BP CHECK 02/21/2012 Patient Education: Patient Medication Summary Completed 02/21/2012 Visit Plan: Doxycycline and bactroban fo r foot Supportive care on ankles and knees Add norvasc for BP 02/20/2012 Appointment: María Elena Appiah WPtel: [address] [place] [address] ER Follow UP 02/20/2012 Patient Education: Patient Medication Summary Completed 02/20/2012 Appointment: María Elena Appiahtel: [address] [place] [address] ACUTE ILLNESS 01/30/2012 Patient Education: Patient Medication Summary Completed 01/30/2012 Appointment: María Elena Appiah WPtel: [address] [place] [address] ACUTE ILLNESS 01/24/2012 Patient Education: Patient Medication Summary Completed 01/24/2012 Visit Plan: Daily back stretches, moist heat, Biofreeze prn OMT done 01/10/2012 Appointment: María Elena Appiah WPtel: [address] [place] [address] ACUTE ILLNESS 01/10/2012 Patient Education: Patient Medication Summary Completed 01/10/2012 Appointment: María Elena Appiahtel: [address] [place] [address] FOLLOW UP 12/11/2011 Patient Education: Patient Medication Summary Completed 12/11/2011 Appointment: María Elena Appiahtel: [address] [place] [address] ACUTE ILLNESS 11/09/2011 Patient Education: Patient Medication Summary Completed 11/09/2011 Appointment: María Elena Appiah WPtel: [address] [place] [address] ACUTE ILLNESS 09/13/2011 Patient Education: Patient Medication Summary Completed 09/13/2011 Visit Plan: Check CBC, TSH, Free T4, CMP , ESR, Vit D, B12 now Start Prednisone today 08/31/2011 Appointment: María Elena Appiahtel: [address] [place] [address] ACUTE ILLNESS 08/31/2011 Patient Education: Patient Medication Summary Completed 08/31/2011 Appointment: María Elena Appiahtel: [address] [place] [address] US INJECTION 07/20/2011 Patient Education: Patient Medication Summary Completed 07/20/2011 Visit Plan: Continue current meds Monite r BP Cont stretches from PT 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 07/06/2011 Appointment: María Elena Appiahtel: [address] [place] [address] FOLLOW UP 07/06/2011 Patient Education: Patient Medication Summary Completed 07/06/2011 Appointment: María Elena Appiahtel: [address] [place] [address] BP CHECK 06/06/2011 Patient Education: Patient Medication Summary Completed 06/06/2011 Visit Plan: Add Bystolic at 2.5mg QAM Ad d Robaxin 750mg 2 po q HS BP check in 2wks 05/22/2011 Appointment: María Elena Appiahtel: [address] [place], [place] [phone] [place] FOLLOW UP 05/22/2011 Patient Education: Patient Medication Summary Completed 05/22/2011 Appointment: María Elena Appiah WPtel: [address] [place] [phone] ER Follow UP 05/09/2011 Patient Education: Patient Medication Summary Completed 05/09/2011 Appointment: María Elena Appiah WPtel: [address] [place] [phone] FOLLOW UP 02/22/2011 Visit Plan: Rx written for Hydrocodone 1 0/325mg #240 See Ortho 02/14/2011 Appointment: María Elena Appiah WPtel: [address] [place] [address] OMT 02/14/2011 Patient Education: Patient Medication Summary [...] lab work. 02/03/2011 Appointment: Lashawn Eckert WPtel: [address] [place], [place] [phone] ACUTE ILLNESS 02/03/2011 Patient Education: Patient Medication Summary Completed 02/03/2011 Visit Plan: OMT done Cont daily stretche s 01/31/2011 Appointment: María Elena Appiah WPtel: [address] [place], [place] [phone] ACUTE ILLNESS 01/31/2011 Patient Education: Patient Medication Summary Completed 01/31/2011 Visit Plan: Continue pain meds OMT done Proceed with PT No work this summer01/25/2011 Appointment: María Elena Appiahtel: [address] [place] [address] ACUTE ILLNESS 01/25/2011 Patient Education: Patient Medication Summary Completed 01/25/2011 Visit Plan: Start PT Long discussion abo ut getting pain meds from only us and can only have max of 4grams of tylenol per day Change to Hydrocodone 10/325mg 1- 2 po TID prn pain--#180 called to [place] 01/18/2011 Appointment: María Elena Appiah WPtel: [address] [place] [address] FOLLOW UP 01/18/2011 Patient Education: Patient Medication Summary Completed 01/18/2011 Visit Plan: Daily back stretches, moist heat, Biofreeze prn 11/29/2010 Appointment: María Elena Appiah WPtel: [address] [place] [address] ER Follow UP 11/29/2010 Patient Education: Patient Medication Summary Completed 11/29/2010 Visit Plan: Saline nasal flushes prn. Ty lenol/Motrin prn headache. Notify if persists/symptoms worsening. Finish augmentin Add Medrol Dose Pack 10/10/2010 Appointment: María Elena Appiah WPtel: [address] [place], [place] [id number] ACUTE ILLNESS 10/10/2010 Patient Education: Patient Medication Summary Completed 10/10/2010 Visit Plan: Cryotherapy x3 to multiple l esions on both forearms 07/19/2010 Appointment: María Elena Appiah WPtel: [address] [place] [address] OFFICE SURGERY 07/19/2010 Patient Education: Patient Medication Summary Completed 07/19/2010 Appointment: María Elena Appiah WPtel: [address] [place], [place] [address] US BP CHECK 07/06/2010 Patient Education: Patient Medication Summary Completed 07/06/2010 Appointment: María Elena Appiahtel: [address] [place] [address] BP CHECK 06/30/2010 Patient Education: Patient Medication Summary Completed 06/30/2010 Appointment: María Elena Appiah WPtel: [address] [place] [address] BP CHECK 06/20/2010 Patient Education: Patient Medication Summary Completed 06/20/2010 Visit Plan: Change Diovan to Exforge 160 /5mg QD OMT done to thoracics BP check in 2wks 06/07/2010 Appointment: María Elena Appiah WPtel: [address] [place] [address] FOLLOW UP 06/07/2010 Patient Education: Patient Medication Summary Completed 06/07/2010 Appointment: María Elena Appiah WPtel: [address] [place] [address] BP CHECK 06/03/2010 Patient Education: Patient Medication Summary Completed 06/03/2010 Appointment: María Elena Appiahtel: [address] [place] [address] BP CHECK 06/01/2010 Patient Education: Patient Medication Summary Completed 06/01/2010 Visit Plan: Irritated skin tags to left neck x2 excised at base with scissors and base cauterized 05/30/2010 Appointment: María Elena Appiah WPtel: [address] [place] [address] OFFICE SURGERY 05/30/2010 Patient Education: Patient Medication Summary Completed 05/30/2010 Visit Plan: Saline nasal flushes prn. Ty lenol/Motrin prn headache. Notify if persists/symptoms worsening. Restart Nasonex Has allergy testing set for May 25 04/27/2010 Appointment: María Elena Appiah WPtel: [address] [place] [address] ACUTE ILLNESS 04/27/2010 Patient Education: Patient Medication Summary Completed 04/27/2010 Visit Plan: Saline nasal flushes prn. Ty lenol/Motrin prn headache. Notify if persists/symptoms worsening. Omnaris BID plus injections 04/05/2010 Appointment: María Elena Appiahtel: [address] [place] [address] ACUTE ILLNESS 04/05/2010 Patient Education: Patient Medication Summary Completed 04/05/2010 Visit Plan: Saline nasal flushes prn. Ty lenol/Motrin prn headache. Notify if persists/symptoms worsening. 03/09/2010 Appointment: María Elena Appiahtel: [address] [place] [address] ACUTE ILLNESS 03/09/2010 Patient Education: Patient Medication Summary Completed 03/09/2010 Visit Plan: Cont Clonidine as is Cont Pr emarin Fwup with surgery as scheduled 03/03/2010 Appointment: María Elena Appiahtel: [address] [place] [address] FOLLOW UP 03/03/2010 Patient Education: Patient Medication Summary Completed 03/03/2010 Visit Plan: Check Pelvic US now Dukee tacho Sal C vs Hysterectomy 01/17/2010 Appointment: María Elena Appiahtel: [address] [place] [address] ACUTE ILLNESS 01/17/2010 Patient Education: Patient Medication Summary Completed 01/17/2010 Visit Plan: Check fasting lab and schedu le Mammogram 2gm Na Diet Trial of Ambien 10mg qhs Fwup pending lab results 12/27/2009 Appointment: María Elena Appiahtel: [address] [place] [address] [place] ESTABLISHED PATIENT 12/27/2009 Patient Education: Patient Medication Summary Completed 12/27/2009 Referral: Canelo Overton WPtel: [address] [place] [address] [place] Referral Initiated Referral: Philipp Flores WPtel: [address] [id number] [place] Referral Appointment Requested Instructions Comment . [...]
--- OUTSIDE RECORDS SUMMARY | 2020-03-13 06:02 | XMS REPORT | CCD ---
Author Author Gale Appiah D.O. 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 Name Role Phone María Elena Appiah D.O., PP Unavailable CCM Unavailable Summary Purpose Interface Exchange Insurance Providers Payer name Policy type / Coverage type Covered constitution party ID Effective Begin Date Effective End Date [facility] Commercial Insurance [id number] Unknown Family History Family History data not found Social History Social History Element Codes Description Effective Dates Tobacco history SNOMED CT: [id number] Never smoker 05/22/2011 Allergies, Adverse Reactions, Alerts [...] Instructions duloxetine 60 mg capsule,delayed release RxNorm: 489754 1 Capsu le(s) Oral QD 10/17/2019 04/13/2020 Active lisinopril 20 mg tablet RxNorm: 910199 1 Tablet(s) Oral QD 10/17/19 20 04/13/2020 Active gabapentin 300 mg capsule RxNorm: 695060 1 Capsule(s) O ral every night at bedtime 10/17/2019 01/15/2020 Active Singulair 10 mg tablet RxNorm: 968613 1 Tablet(s) Oral QD 10/17/2019 04/14/2020 Active Klor-Con 8 mEq tablet,extended release RxNorm: 575599 1 Tablet(s) Oral two times a day 10/17/2019 11/16/2019 Active metoprolol tartrate 100 mg tablet RxNorm: 728613 1 Tabl et(s) Oral two times a day 10/17/2019 04/13/2020 Active Januvia 100 mg tablet RxNorm: 838682 1 Tablet(s) Oral QD 10/17/2019 No Stop Date Active Steglatro 15 mg tablet RxNorm: 4484099 1 Tablet(s) Oral QD 10/17/19 No Stop Date Active Glyxambi 25 mg-5 mg tablet RxNorm: 2792502 1 Tablet(s) Oral QD 01/202010/16/2019 Inactive Patient will bring in copay discount card as well Glyxambi 25 mg-5 mg tablet RxNorm: 8169795 1 Tablet(s) Oral QD 01/202010/14/2019 Inactive Patient will bring in copay discount card as well Keflex 500 mg capsule RxNorm: 501432 1 Capsule(s) Oral two time s a day 10/07/2019 10/14/2019 Inactive Premarin 1.25 mg tablet RxNorm: 585376 1 Tablet(s) Oral QD 09/30/1906/25/2020 Active hydrocodone 10 mg-acetaminophen 325 mg tablet RxNorm: 209451 1-2 Tablet(s) Oral three times a day as needed for pain 09/30/2019 09/30/2019 Inactive baclofen 10 mg tablet RxNorm: 298743 TAKE ONE TABLET BY MOUTH THREE TIMES A DAY NEEDED 09/19/2019 No Stop Date Active gabapentin 300 mg capsule RxNorm: 644459 TAKE ONE CAPSU LE BY MOUTH EVERY NIGHT AT BEDTIME 09/19/2019 10/16/2019 Inactive Klor-Con 8 mEq tablet,extended release RxNorm: 479365 T FARRUKH ONE TABLET BY MOUTH TWICE A DAY 1 Tablet(s) Oral two times a day 09/19/2019 10/16/2019 Renu ctive hydrocodone 10 mg-acetaminophen 325 mg tablet RxNorm: 763839 1-2 Tablet(s) Oral three times a day as needed for pain 09/19/2019 09/29/2019 Inactive Lipitor 10 mg tablet RxNorm: 461939 TAKE ONE TABLET BY MOUTH AT BEDTIME 09/11/2019 No Stop Date Active triamterene 75 mg-hydrochlorothiazide 50 mg tablet RxNorm: 3 40818 TAKE ONE TABLET BY MOUTH DAILY 09/11/2019 No Stop Date Active allopurinol 300 mg tablet RxNorm: 621390 TAKE ONE TABLET BY LOPEZ TH DAILY 09/11/2019 No Stop Date Active celecoxib 200 mg capsule RxNorm: 646787 TAKE ONE CAPSUL E BY MOUTH TWICE A DAY NEEDED FOR PAIN 09/11/2019 No Stop Date Active clonidine HCl 0.1 mg tablet RxNorm: 099300 TAKE ONE TAB LET BY MOUTH FOUR TIMES A DAY 09/11/2019 No Stop Date Active duloxetine 60 mg capsule,delayed release RxNorm: 764077 TAKE ONE CAPSULE BY MOUTH DAILY 09/11/2019 10/16/2019 Inactive lisinopril 20 mg tablet RxNorm: 478862 TAKE ONE TABLET BY MOUTH DAILY .... THIS REPLACE 10MG TABLETS 09/11/2019 10/16/2019 Inactive doxepin 25 mg capsule RxNorm: 8996667 1 Capsule(s) Oral every night at bedtime as needed for sleep 08/21/2019 11/18/2019 Active hydrocodone 10 mg-acetaminophen 325 mg tablet RxNorm: 159818 1-2 Tablet(s) PO TID 08/12/2019 09/29/2019 Inactive as needed for pa in - Previous quantity #240, will start dosing for #180 in April 2011 per Doctor Td. Medrol (Dustin) 4 mg tablets in a dose pack RxNorm: 207812 Tablet(s) Oral As Directed 07/21/2019 09/29/2019 Inactive Premarin 1.25 mg tablet RxNorm: 256705 1 Tablet(s) Oral QD 07/02/2009/29/2019 Inactive hydrocodone 10 mg-acetaminophen 325 mg tablet RxNorm: 762404 1-2 Tablet(s) PO TID 07/01/2019 08/11/2019 Inactive as needed for pa in - Previous quantity #240, will start dosing for #180 in April 2011 per Doctor Td. gabapentin 300 mg capsule RxNorm: 220428 1 Capsule(s) PO QHS 201809/18/2019 Inactive celecoxib 200 mg capsule RxNorm: 742680 1 Capsule(s) Or al two times a day as needed for pain 06/27/2019 06/27/2019 Inactive furosemide 40 mg tablet RxNorm: 952718 TAKE ONE TABLET BY MOUTH EVERY MORNING NEEDED FOR EDEMA . TAKE WITH POTASSIUM 06/24/2019 No Stop Date Active doxepin 25 mg capsule RxNorm: 1813463 TAKE ONE CAPSULE B Y MOUTH EVERY NIGHT AT BEDTIME NEEDED FOR SLEEP 06/24/2019 08/20/2019 Inactive Singulair 10 mg tablet RxNorm: 345504 TAKE ONE TABLET BY MOUTH JOSÉ Y 06/24/2019 10/16/2019 Inactive lisinopril 20 mg tablet RxNorm: 041345 TAKE ONE TABLET BY MOUTH DAILY .... THIS REPLACE 10MG TABLETS 06/24/2019 09/10/2019 Inactive nystatin-triamcinolone 100,000 unit/g-0.1 % topical cream Rx Norm: 0987793 1 Application Topical two times a day 06/12/2019 06/19/2019 Inactive apply BID for 1 week nystatin-triamcinolone 100,000 unit/g-0.1 % topical cream Rx Norm: 9622010 1 Application Topical two times a day 06/12/2019 06/11/2019 Inactive apply BID for 1 week hydrocodone 10 mg-acetaminophen 325 mg tablet RxNorm: 872696 1-2 Tablet(s) PO QID as needed for pain MUST LAST 30 DAYS 05/28/2019 06/26/2019 Inactiv e (Response to an electronic controlled substance refill request - RxReferenceNumber: [id number]) baclofen 20 mg tablet RxNorm: 322706 1 Tablet(s) PO TID as needed for muscle spasm 05/19/2019 05/27/2019 Inactive gabapentin 300 mg capsule RxNorm: 775997 1 Capsule(s) PO QHS 201805/27/2019 Inactive lisinopril 20 mg tablet RxNorm: 355391 1 Tablet(s) PO Q D TAKE ONE TABLET BY MOUTH DAILY, REPLACES 10 MG DOSE 05/19/2019 06/23/2019 Inactive doxepin 25 mg capsule RxNorm: 3963410 TAKE ONE CAPSULE B Y MOUTH EVERY NIGHT AT BEDTIME NEEDED FOR SLEEP 05/16/2019 06/14/2019 Inactive lisinopril 20 mg tablet RxNorm: 510096 TAKE ONE TABLET BY MOUTH DAILY, REPLACES 10 MG DOSE 05/16/2019 05/18/2019 Inactive Singulair 10 mg tablet RxNorm: 689892 TAKE ONE TABLET BY MOUTH JOSÉ Y 05/16/2019 06/14/2019 Inactive gabapentin 300 mg capsule RxNorm: 190574 1 Capsule(s) PO QHS 201805/04/2019 Inactive estropipate 1.5 mg tablet RxNorm: 913231 1 Tablet(s) PO QD 05/05/2005/27/2019 Inactive estropipate 1.5 mg tablet RxNorm: 908238 1 Tablet(s) PO QD 05/05/2005/04/2019 Inactive gabapentin 300 mg capsule RxNorm: 715652 1 Capsule(s) PO QHS 201805/18/2019 Inactive hydrocodone 10 mg-acetaminophen 325 mg tablet RxNorm: 139328 1-2 Tablet(s) PO QID as needed for pain MUST LAST 30 DAYS 04/25/2019 05/24/2019 Inactiv e (Response to an electronic controlled substance refill request - RxReferenceNumber: [id number]) cyclobenzaprine 10 mg tablet RxNorm: 985509 TAKE ONE TA BLET BY MOUTH THREE TIMES A DAY NEEDED FOR MUSCLE SPASMS 04/24/2019 05/18/2019 Inactive metoprolol tartrate 100 mg tablet RxNorm: 321428 TAKE O NE TABLET BY MOUTH TWICE A DAY 04/24/2019 10/16/2019 Inactive Lyrica 75 mg capsule RxNorm: 949383 1 Capsule(s) PO QHS 03/25/2019 Inactive duloxetine 60 mg capsule,delayed release RxNorm: 647368 TAKE ONE CAPSULE BY MOUTH DAILY 03/21/2019 05/19/2019 Inactive triamterene 75 mg-hydrochlorothiazide 50 mg tablet RxNorm: 3 15612 TAKE ONE TABLET BY MOUTH DAILY 03/21/2019 05/19/2019 Inactive Klor-Con 8 mEq tablet,extended release RxNorm: 829028 T FARRUKH ONE TABLET BY MOUTH TWICE A DAY 03/21/2019 09/18/2019 Inactive Lipitor 10 mg tablet RxNorm: 768676 TAKE ONE TABLET BY MOUTH AT BEDTIME 03/21/2019 09/10/2019 Inactive clonidine HCl 0.1 mg tablet RxNorm: 850544 TAKE ONE TAB LET BY MOUTH FOUR TIMES A DAY 03/21/2019 05/19/2019 Inactive allopurinol 300 mg tablet RxNorm: 858219 TAKE ONE TABLET BY LOPEZ TH DAILY 03/21/2019 05/19/2019 Inactive hydrocodone 10 mg-acetaminophen 325 mg tablet RxNorm: 594921 1-2 Tablet(s) PO QID as needed for pain MUST LAST 30 DAYS 02/28/2019 03/29/2019 Inactiv e (Response to an electronic controlled substance refill request - RxReferenceNumber: [id number]) furosemide 40 mg tablet RxNorm: 948950 TAKE ONE TABLET BY MOUTH EVERY MORNING NEEDED FOR EDEMA . TAKE WITH POTASSIUM 02/21/2019 03/22/2019 Inactive cyclobenzaprine 10 mg tablet RxNorm: 787168 TAKE ONE TA BLET BY MOUTH THREE TIMES A DAY NEEDED FOR MUSCLE SPASMS 02/21/2019 04/21/2019 Inactive lisinopril 20 mg tablet RxNorm: 901421 TAKE ONE TABLET BY MOUTH DAILY, REPLACES 10 MG DOSE 02/21/2019 05/15/2019 Inactive doxepin 25 mg capsule RxNorm: 7414059 TAKE ONE CAPSULE B Y MOUTH EVERY NIGHT AT BEDTIME NEEDED FOR SLEEP 02/21/2019 05/15/2019 Inactive nystatin 100,000 unit/gram topical cream RxNorm: 908054 APPLY TO AFFECTED AREA(S) TWO TIMES A DAY 02/21/2019 03/22/2019 Inactive estradiol 1 mg tablet RxNorm: 238814 2 Tablet(s) PO QD replaces premarin 01/22/2019 05/04/2019 Inactive lisinopril 20 mg tablet RxNorm: 440801 TAKE ONE TABLET BY MOUTH DAILY, REPLACES 10 MG DOSE 01/20/2019 02/18/2019 Inactive cyclobenzaprine 10 mg tablet RxNorm: 306321 TAKE ONE TA BLET BY MOUTH THREE TIMES A DAY NEEDED FOR MUSCLE SPASMS 01/20/2019 02/18/2019 Inactive metoprolol tartrate 100 mg tablet RxNorm: 565878 TAKE O NE TABLET BY MOUTH TWICE A DAY 01/20/2019 02/18/2019 Inactive cyclobenzaprine 10 mg tablet RxNorm: 177679 TAKE ONE TA BLET BY MOUTH THREE TIMES A DAY NEEDED FOR MUSCLE SPASMS 12/19/2018 01/17/2019 Inactive lisinopril 20 mg tablet RxNorm: 968464 TAKE ONE TABLET BY MOUTH DAILY, REPLACES 10 MG DOSE 12/19/2018 01/17/2019 Inactive duloxetine 60 mg capsule,delayed release RxNorm: 294172 TAKE ONE CAPSULE BY MOUTH DAILY 12/19/2018 01/17/2019 Inactive Lipitor 10 mg tablet RxNorm: 393463 TAKE ONE TABLET BY MOUTH AT BEDTIME 12/19/2018 01/17/2019 Inactive cyclobenzaprine 10 mg tablet RxNorm: 511946 1 Tablet(s) PO TID as needed for muscle spasm 11/19/2018 12/18/2018 Inactive Singulair 10 mg tablet RxNorm: 452314 1 Tablet(s) PO QD 11/19/2018 Inactive lisinopril 20 mg tablet RxNorm: 607641 TAKE ONE TABLET BY MOUTH DAILY, REPLACES 10 MG DOSE 11/15/2018 12/18/2018 Inactive hydrocodone 10 mg-acetaminophen 325 mg tablet RxNorm: 239746 1-2 Tablet(s) PO QID as needed for pain MUST LAST 30 DAYS 11/13/2018 12/12/2018 Inactiv e (Response to an electronic controlled substance refill request - RxReferenceNumber: [id number]) nystatin 100,000 unit/gram topical cream RxNorm: 842267 APPLY TO AFFECTED AREA(S) TWO TIMES A DAY 10/23/2018 11/06/2018 Inactive lisinopril 20 mg tablet RxNorm: 417710 1 Tablet(s) PO QD replac es 10mg dose 10/18/2018 11/14/2018 Inactive hydrocodone 10 mg-acetaminophen 325 mg tablet RxNorm: 988973 1-2 Tablet(s) QID as needed for pain MUST LAST 30 DAYS 10/08/2018 11/06/2018 Inactive (Response to an electronic controlled substance refill request - RxReferenceNumber: [id number]) lisinopril 10 mg tablet RxNorm: 771119 1 Tablet(s) PO QD 10/03/2018 0 01/21/2019 Inactive Celebrex 200 mg capsule RxNorm: 320766 TAKE ONE CAPSULE BY MOUT H TWICE A DAY 09/30/2018 05/04/2019 Inactive cyclobenzaprine 10 mg tablet RxNorm: 235408 TAKE ONE TA BLET BY MOUTH THREE TIMES A DAY NEEDED FOR MUSCLE SPASMS 09/30/2018 11/18/2018 Inactive doxepin 25 mg capsule RxNorm: 2533308 TAKE ONE CAPSULE B Y MOUTH EVERY NIGHT AT BEDTIME NEEDED 09/05/2018 10/16/2018 Inactive omeprazole 40 mg capsule,delayed release RxNorm: 227934 TAKE ONE CAPSULE BY MOUTH DAILY 09/05/2018 01/21/2019 Inactive furosemide 40 mg tablet RxNorm: 485934 TAKE ONE TABLET BY MOUTH EVERY MORNING NEEDED FOR EDEMA . TAKE WITH POTASSIUM 09/05/2018 11/03/2018 Inactive phentermine 37.5 mg tablet RxNorm: 088930 1 Tablet(s) PO QAM 201701/21/2019 Inactive doxepin 25 mg capsule RxNorm: 7804150 1 Capsule(s) PO QH S as needed for sleep TAKE ONE CAPSULE BY MOUTH EVERY NIGHT AT BEDTIME NEEDED 08/27/2018 09/04/2018 Inactive Keflex 500 mg capsule RxNorm: 531752 1 Capsule(s) PO TID 08/09/2018 1 10/19/2017 Inactive Diflucan 100 mg tablet RxNorm: 194051 1 Tablet(s) PO QD 08/09/2018 Inactive Premarin 1.25 mg tablet RxNorm: 744679 2 Tablet(s) PO QD 08/09/2018 0 05/04/2019 Inactive Zofran ODT 4 mg disintegrating tablet RxNorm: 050893 1 Tablet(s) PO Q4H as needed for nausea 08/09/2018 01/21/2019 Inactive metoprolol tartrate 100 mg tablet RxNorm: 520308 TAKE O NE TABLET BY MOUTH TWICE A DAY 2018 10/04/2018 Inactive doxepin 25 mg capsule RxNorm: 9865404 TAKE ONE CAPSULE B Y MOUTH EVERY NIGHT AT BEDTIME NEEDED 2018 08/26/2018 Inactive cyclobenzaprine 10 mg tablet RxNorm: 174790 TAKE ONE TA BLET BY MOUTH THREE TIMES A DAY NEEDED FOR MUSCLE SPASMS 2018 09/29/2018 Inactive hydrocodone 10 mg-acetaminophen 325 mg tablet RxNorm: 619878 1-2 Tablet(s) QID as needed for pain MUST LAST 30 DAYS 07/29/2018 08/27/2018 Inactive (Response to an electronic controlled substance refill request - RxReferenceNumber: [id number]) nystatin 100,000 unit/gram topical powder RxNorm: 168548 Applic ation TOP BID 07/22/2018 08/04/2018 Inactive doxepin 25 mg capsule RxNorm: 2624475 1 Capsule(s) PO QHS as needed 07/22/2018 08/05/2018 Inactive triamterene 75 mg-hydrochlorothiazide 50 mg tablet RxNorm: 3 92958 TAKE ONE TABLET BY MOUTH DAILY 07/05/2018 10/02/2018 Inactive duloxetine 60 mg capsule,delayed release RxNorm: 895250 TAKE ONE CAPSULE BY MOUTH DAILY 07/05/2018 09/02/2018 Inactive Klor-Con 8 mEq tablet,extended release RxNorm: 198949 T FARRUKH ONE TABLET BY MOUTH TWICE A DAY 07/05/2018 10/02/2018 Inactive Lipitor 10 mg tablet RxNorm: 104141 TAKE ONE TABLET BY MOUTH AT BEDTIME 07/05/2018 09/02/2018 Inactive allopurinol 300 mg tablet RxNorm: 624011 TAKE ONE TABLET BY LOPEZ TH DAILY 07/05/2018 10/02/2018 Inactive clonidine HCl 0.1 mg tablet RxNorm: 917577 TAKE ONE TAB LET BY MOUTH FOUR TIMES A DAY 07/05/2018 10/02/2018 Inactive hydrocodone 10 mg-acetaminophen 325 mg tablet RxNorm: 899972 1-2 Tablet(s) QID as needed for pain MUST LAST 30 DAYS 06/28/2018 07/27/2018 Inactive (Response to an electronic controlled substance refill request - RxReferenceNumber: [id number]) MediHoney (calcium alginate-honey) 4" X 5" bandage RxNorm: 1 Application TOP QD 06/17/2018 06/26/2018 Inactive honey-hydrocolloid dressing 4" X 5" RxNorm: 1 Application TOP QD 06/17/2018 07/16/2018 Inactive furosemide 40 mg tablet RxNorm: 407181 TAKE ONE TABLET BY MOUTH EVERY MORNING NEEDED FOR EDEMA . TAKE WITH POTASSIUM 06/10/2018 07/09/2018 Inactive This is a refill request. hydrocodone 10 mg-acetaminophen 325 mg tablet RxNorm: 172071 1-2 Tablet(s) QID as needed for pain MUST LAST 30 DAYS 05/30/2018 06/27/2018 Inactive (Response to an electronic controlled substance refill request - RxReferenceNumber: [id number]) acyclovir 800 mg tablet RxNorm: 414795 1 Tablet(s) PO 5x day 201705/22/2018 Inactive Premarin 1.25 mg tablet RxNorm: 841616 1-2 Tablet(s) PO QD 05/15/20 18 07/13/2018 Inactive cyclobenzaprine 10 mg tablet RxNorm: 226476 1 Tablet(s) PO TID as needed for muscle spasm 05/09/2018 05/08/2018 Inactive Medrol (Dustin) 4 mg tablets in a dose pack RxNorm: 566015 Tablet(s) PO As Directed 05/02/2018 06/16/2018 Inactive hydrocodone 10 mg-acetaminophen 325 mg tablet RxNorm: 774203 1-2 Tablet(s) QID as needed for pain MUST LAST 30 DAYS 04/30/2018 05/29/2018 Inactive (Response to an electronic controlled substance refill request - RxReferenceNumber: [id number]) duloxetine 60 mg capsule,delayed release RxNorm: 201241 TAKE ONE CAPSULE BY MOUTH DAILY 04/16/2018 05/15/2018 Inactive Celebrex 200 mg capsule RxNorm: 649882 TAKE ONE CAPSULE BY MOUT H TWICE A DAY 04/16/2018 06/14/2018 Inactive Singulair 10 mg tablet RxNorm: 440813 TAKE ONE TABLET BY MOUTH JOSÉ Y 04/16/2018 11/19/2018 Inactive Lipitor 10 mg tablet RxNorm: 363427 TAKE ONE TABLET BY MOUTH AT BEDTIME 04/16/2018 05/15/2018 Inactive hydrocodone 10 mg-acetaminophen 325 mg tablet RxNorm: 639045 1-2 Tablet(s) QID as needed for pain MUST LAST 30 DAYS 03/29/2018 04/27/2018 Inactive (Response to an electronic controlled substance refill request - RxReferenceNumber: [id number]) cyclobenzaprine 10 mg tablet RxNorm: 386414 1 Tablet(s) PO TID as needed for muscle spasm 03/18/2018 05/09/2018 Inactive omeprazole 40 mg capsule,delayed release RxNorm: 127881 1 Capsu le(s) PO QD 02/26/2018 08/24/2018 Inactive hydrocodone 10 mg-acetaminophen 325 mg tablet RxNorm: 029500 1-2 Tablet(s) QID as needed for pain MUST LAST 30 DAYS 02/26/2018 03/27/2018 Inactive (Response to an electronic controlled substance refill request - RxReferenceNumber: [id number]) metoprolol tartrate 100 mg tablet RxNorm: 753998 1 Tablet(s) PO BID 02/18/2018 08/05/2018 Inactive Lyrica 75 mg capsule RxNorm: 447706 1 Capsule(s) PO QHS 01/30/2018 Inactive phentermine 37.5 mg tablet RxNorm: 451263 1 Tablet(s) PO QAM 201706/16/2018 Inactive hydrocodone 10 mg-acetaminophen 325 mg tablet RxNorm: 481106 1-2 Tablet(s) QID as needed for pain MUST LAST 30 DAYS 01/29/2018 02/25/2018 Inactive (Response to an electronic controlled substance refill request - RxReferenceNumber: [id number]) Klor-Con 8 mEq tablet,extended release RxNorm: 416144 1 Tablet( s) PO BID 01/14/2018 07/04/2018 Inactive allopurinol 300 mg tablet RxNorm: 419209 1 Tablet(s) PO QD 01/15/2007/04/2018 Inactive Lipitor 10 mg tablet RxNorm: 181183 1 Tablet(s) PO QHS 01/14/201812/2017 Inactive triamterene 75 mg-hydrochlorothiazide 50 mg tablet RxNorm: 3 39052 1 Tablet(s) PO QD 01/14/2018 07/04/2018 Inactive hydrocodone 10 mg-acetaminophen 325 mg tablet RxNorm: 377837 1-2 Tablet(s) QID as needed for pain MUST LAST 30 DAYS 12/27/2017 01/25/2018 Inactive (Response to an electronic controlled substance refill request - RxReferenceNumber: [id number]) Onglyza 5 mg tablet RxNorm: 667851 1 Tablet(s) PO QD 12/18/201701/29 Inactive metformin 500 mg tablet RxNorm: 371932 1 Tablet(s) PO BID 12/11/2017 12/10/2017 Inactive metformin 500 mg tablet RxNorm: 218517 1 Tablet(s) PO BID 12/11/2017 12/17/2017 Inactive furosemide 40 mg tablet RxNorm: 103254 1 Tablet(s) PO Q AM prn edema--take with potassium 12/11/2017 06/08/2018 Inactive cyclobenzaprine 10 mg tablet RxNorm: 216913 1 Tablet(s) PO TID as needed for muscle spasm 12/11/2017 03/18/2018 Inactive hydrocodone 10 mg-acetaminophen 325 mg tablet RxNorm: 734152 1-2 Tablet(s) QID as needed for pain MUST LAST 30 DAYS 10/23/2017 11/21/2017 Inactive (Response to an electronic controlled substance refill request - RxReferenceNumber: [id number]) Lipitor 10 mg tablet RxNorm: 033531 1 Tablet(s) PO QHS 10/16/201703/2018 Inactive cyclobenzaprine 10 mg tablet RxNorm: 354290 1 Tablet(s) PO TID as needed for muscle spasm 10/09/2017 12/10/2017 Inactive hydroxyzine HCl 25 mg tablet RxNorm: 816718 1 Tablet(s) PO BID as needed for anxiety 09/20/2017 01/29/2018 Inactive Effexor XR 75 mg capsule,extended release RxNorm: 166948 1 Caps ule(s) PO QD 09/20/2017 01/29/2018 Inactive metoprolol tartrate 100 mg tablet RxNorm: 506687 1 Tablet(s) PO BID 08/20/2017 02/18/2018 Inactive baclofen 20 mg tablet RxNorm: 122946 1 Tablet(s) PO TID as needed for muscle spasm 08/20/2017 01/21/2019 Inactive clonidine HCl 0.1 mg tablet RxNorm: 630088 1 Tablet(s) PO QID 08/2005/16/2018 Inactive Seroquel 25 mg tablet RxNorm: 176923 1 Tablet(s) PO QHS 08/17/2017 Inactive Seroquel 25 mg tablet RxNorm: 668408 1 Tablet(s) PO QHS 08/17/2017 Inactive Diflucan 100 mg tablet RxNorm: 877933 TAKE ONE TABLET BY MOUTH JOSÉ Y 07/25/2017 08/07/2017 Inactive hydrocodone 10 mg-acetaminophen 325 mg tablet RxNorm: 476517 1-2 Tablet(s) QID as needed for pain MUST LAST 30 DAYS 07/19/2017 08/17/2017 Inactive (Response to an electronic controlled substance refill request - RxReferenceNumber: [id number]) clindamycin 300 mg capsule RxNorm: 769812 1 Capsule(s) PO TID 07/1907/28/2017 Inactive clotrimazole-betamethasone 1 %-0.05 % topical cream RxNorm: 107737 Application TOP BID to elbow rash 07/19/2017 06/16/2018 Inactive Singulair 10 mg tablet RxNorm: 946940 Tablet(s) TAKE ONE TABLET BY MOUTH DAILY 07/18/2017 04/13/2018 Inactive triamterene 75 mg-hydrochlorothiazide 50 mg tablet RxNorm: 3 71721 1 Tablet(s) PO QD 07/18/2017 01/14/2018 Inactive Celebrex 200 mg capsule RxNorm: 442141 Capsule(s) TAKE ONE CAPSULE BY MOUTH TWICE A DAY 07/18/2017 10/15/2017 Inactive hydrocodone 10 mg-acetaminophen 325 mg tablet RxNorm: 905156 1-2 Tablet(s) QID as needed for pain MUST LAST 30 DAYS 06/19/2017 07/18/2017 Inactive (Response to an electronic controlled substance refill request - RxReferenceNumber: [id number]) hydrocodone 10 mg-acetaminophen 325 mg tablet RxNorm: 541758 1-2 Tablet(s) QID as needed for pain MUST LAST 30 DAYS 06/19/2017 06/18/2017 Inactive (Response to an electronic controlled substance refill request - RxReferenceNumber: [id number]) baclofen 20 mg tablet RxNorm: 708177 1 Tablet(s) PO TID as needed for muscle spasm 06/18/2017 08/20/2017 Inactive Medrol (Dustni) 4 mg tablets in a dose pack RxNorm: 750320 Tablet(s) PO As Directed 06/05/2017 07/18/2017 Inactive omeprazole 40 mg capsule,delayed release RxNorm: 514513 1 Capsu le(s) PO QD 04/20/2017 10/16/2017 Inactive Premarin 1.25 mg tablet RxNorm: 955834 1-2 Tablet(s) PO QD 04/11/20 17 05/15/2018 Inactive duloxetine 60 mg capsule,delayed release RxNorm: 088002 1 Capsu le(s) PO QD 04/11/2017 09/19/2017 Inactive furosemide 40 mg tablet RxNorm: 997860 1 Tablet(s) PO Q AM prn edema--take with potassium 04/11/2017 12/11/2017 Inactive Klor-Con 8 mEq tablet,extended release RxNorm: 500041 1 Tablet( s) PO BID 04/11/2017 01/14/2018 Inactive Lipitor 10 mg tablet RxNorm: 877518 1 Tablet(s) PO QHS 04/11/201702/2018 Inactive amlodipine 5 mg-benazepril 20 mg capsule RxNorm: 288089 1 Capsu le(s) PO QD 04/11/2017 01/29/2018 Inactive allopurinol 300 mg tablet RxNorm: 618325 1 Tablet(s) PO QD 04/11/20 17 01/14/2018 Inactive clonidine HCl 0.1 mg tablet RxNorm: 577913 1 Tablet(s) PO QID 04/0508/19/2017 Inactive baclofen 20 mg tablet RxNorm: 694079 1 Tablet(s) PO TID as needed for muscle spasm 04/02/2017 06/18/2017 Inactive Premarin 1.25 mg tablet RxNorm: 120838 1-2 Tablet(s) PO QD 03/20/20 17 04/10/2017 Inactive hydrocodone 10 mg-acetaminophen 325 mg tablet RxNorm: 299981 1-2 Tablet(s) QID as needed for pain MUST LAST 30 DAYS 03/14/2017 01/21/2019 Inactive (Response to an electronic controlled substance refill request - RxReferenceNumber: [id number]) metoprolol tartrate 100 mg tablet RxNorm: 987111 1 Tablet(s) PO BID 02/12/2017 08/20/2017 Inactive hydrocodone 10 mg-acetaminophen 325 mg tablet RxNorm: 898387 1-2 Tablet(s) QID as needed for pain MUST LAST 30 DAYS 02/08/2017 03/09/2017 Inactive (Response to an electronic controlled substance refill request - RxReferenceNumber: [id number]) metoprolol tartrate 100 mg tablet RxNorm: 734845 TAKE O NE TABLET BY MOUTH TWICE A DAY 01/11/2017 02/12/2017 Inactive metoprolol tartrate 100 mg tablet RxNorm: 536727 1 Tablet(s) PO BID 12/18/2016 12/17/2016 Inactive metoprolol tartrate 100 mg tablet RxNorm: 368213 1 Tablet(s) PO BID 12/18/2016 01/10/2017 Inactive furosemide 40 mg tablet RxNorm: 060056 1 Tablet(s) PO Q AM prn edema--take with potassium 12/13/2016 02/10/2017 Inactive amitriptyline 100 mg tablet RxNorm: 227883 1 Tablet(s) PO QHS 11/2812/12/2016 Inactive baclofen 20 mg tablet RxNorm: 306285 1 Tablet(s) PO TID as needed for muscle spasm 11/14/2016 04/01/2017 Inactive triamterene 75 mg-hydrochlorothiazide 50 mg tablet RxNorm: 3 83067 1 Tablet(s) PO QD 11/14/2016 11/13/2016 Inactive metolazone 2.5 mg tablet RxNorm: 622096 TAKE ONE TABLET BY MOUTH DAILY NEEDED FOR EDEMA 11/14/2016 12/12/2016 Inactive triamterene 75 mg-hydrochlorothiazide 50 mg tablet RxNorm: 3 35047 1 Tablet(s) PO QD 11/14/2016 07/18/2017 Inactive amitriptyline 50 mg tablet RxNorm: 531697 TAKE ONE TABL ET BY MOUTH AT BEDTIME NEEDED FOR SLEEP 11/14/2016 11/27/2016 Inactive Cymbalta 60 mg capsule,delayed release RxNorm: 128793 1 Capsule (s) PO QHS 11/14/2016 12/12/2016 Inactive clonidine HCl 0.1 mg tablet RxNorm: 759007 1 Tablet(s) PO QID 11/1304/04/2017 Inactive amitriptyline 50 mg tablet RxNorm: 855300 1 Tablet(s) P O QHS as needed for sleep 11/01/2016 11/27/2016 Inactive duloxetine 60 mg capsule,delayed release RxNorm: 056708 TAKE ONE CAPSULE BY MOUTH DAILY 10/20/2016 01/17/2017 Inactive allopurinol 300 mg tablet RxNorm: 804102 TAKE ONE TABLET BY LOPEZ TH DAILY 10/20/2016 01/16/2017 Inactive Lyrica 75 mg capsule RxNorm: 620206 TAKE ONE CAPSULE BY MOUTH EVERY NIGHT AT BEDTIME 10/20/2016 12/10/2016 Inactive Klor-Con 8 mEq tablet,extended release RxNorm: 180880 T FARRUKH ONE TABLET BY MOUTH TWICE A DAY 10/20/2016 01/17/2017 Inactive Celebrex 200 mg capsule RxNorm: 467655 TAKE ONE CAPSULE BY MOUT H TWICE A DAY 10/20/2016 07/18/2017 Inactive Bystolic 10 mg tablet RxNorm: 580163 TAKE ONE TABLET BY MOUTH EVERY NIGHT AT BEDTIME 10/20/2016 12/17/2016 Inactive amlodipine 5 mg-benazepril 20 mg capsule RxNorm: 546007 TAKE ONE CAPSULE BY MOUTH EVERY NIGHT AT BEDTIME -- TO REPLACE AMLODOPINE 10/20/20162016 Inactive Lipitor 10 mg tablet RxNorm: 148615 TAKE ONE TABLET BY MOUTH EVERY NIGHT AT BEDTIME 10/20/2016 01/17/2017 Inactive alprazolam 0.5 mg tablet RxNorm: 509237 3 Tablet(s) PO QHS as needed for sleep/anxiety 09/20/2016 10/31/2016 Inactive Tamiflu 75 mg capsule RxNorm: 099618 1 Capsule(s) PO QD 09/19/2016 Inactive Lyrica 75 mg capsule RxNorm: 234770 1 Capsule(s) PO QHS 09/19/2016 Inactive prednisone 20 mg tablet RxNorm: 058175 1 Tablet(s) PO QD 08/10/2016 1 10/17/2015 Inactive doxycycline hyclate 100 mg capsule RxNorm: 3912205 1 Capsule(s) PO BID 08/10/2016 08/19/2016 Inactive Medrol (Dustin) 4 mg tablets in a dose pack RxNorm: 455236 Tablet(s) PO As Directed 07/31/2016 08/22/2016 Inactive Singulair 10 mg tablet RxNorm: 028519 TAKE ONE TABLET BY MOUTH JOSÉ Y 07/27/2016 07/18/2017 Inactive hydrocodone 10 mg-acetaminophen 325 mg tablet RxNorm: 629361 1-2 Tablet(s) QID as needed for pain MUST LAST 30 DAYS 07/26/2016 08/24/2016 Inactive (Response to an electronic controlled substance refill request - RxReferenceNumber: [id number]) alprazolam 0.5 mg tablet RxNorm: 274842 3 Tablet(s) PO QHS as needed for anxiety or sleep 07/26/2016 09/20/2016 Inactive clindamycin 300 mg capsule RxNorm: 228987 1 Capsule(s) PO TID 07/2007/29/2016 Inactive Diflucan 100 mg tablet RxNorm: 330708 1 Tablet(s) PO QD 07/20/2016 Inactive Levaquin 500 mg tablet RxNorm: 558760 1 Tablet(s) PO QD 07/17/2016 Inactive Levaquin 500 mg tablet RxNorm: 393722 1 Tablet(s) PO QD 07/10/2016 Inactive Levaquin 500 mg tablet RxNorm: 444602 1 Tablet(s) PO QD 07/10/2016 Inactive mupirocin 2 % topical ointment RxNorm: 772789 TOP Apply topically to affected areas twice daily 07/06/2016 09/18/2016 Inactive Singulair 10 mg tablet RxNorm: 132968 TAKE ONE TABLET BY MOUTH JOSÉ Y 06/21/2016 01/21/2019 Inactive alprazolam 0.5 mg tablet RxNorm: 106851 TAKE THREE TABL ETS BY MOUTH AT BEDTIME NEEDED FOR SLEEP OR STRESS 05/22/2016 06/20/2016 Inactive triamterene 75 mg-hydrochlorothiazide 50 mg tablet RxNorm: 3 62836 1 Tablet(s) PO QD 04/26/2016 10/21/2016 Inactive Premarin 1.25 mg tablet RxNorm: 980283 1-2 Tablet(s) PO QD 04/26/20 16 03/20/2017 Inactive Klor-Con 8 mEq tablet,extended release RxNorm: 202363 1 Tablet( s) PO BID 04/26/2016 10/19/2016 Inactive Celebrex 200 mg capsule RxNorm: 140726 1 Capsule(s) PO BID TAKE ONE CAPSULE BY MOUTH EVERY DAY 04/26/2016 10/19/2016 Inactive Lipitor 10 mg tablet RxNorm: 264698 1 Tablet(s) PO QHS 04/26/201605/2017 Inactive allopurinol 300 mg tablet RxNorm: 559729 1 Tablet(s) PO QD TAKE ONE TABLET BY MOUTH EVERY DAY 04/26/2016 10/19/2016 Inactive amlodipine 5 mg-benazepril 20 mg capsule RxNorm: 448402 1 Capsule(s) PO QHS replaces amlodopine 04/26/2016 10/19/2016 Inactive duloxetine 60 mg capsule,delayed release RxNorm: 093424 1 Capsu le(s) PO QD 04/26/2016 10/19/2016 Inactive Bystolic 10 mg tablet RxNorm: 506991 1 Tablet(s) PO QHS 04/26/2016 Inactive Singulair 10 mg tablet RxNorm: 887565 1 Tablet(s) PO QD TAKE ONE TABLET BY MOUTH DAILY 04/26/2016 06/20/2016 Inactive clonidine HCl 0.1 mg tablet RxNorm: 146298 1 Tablet(s) PO QID 04/2610/22/2016 Inactive hydrocodone 10 mg-acetaminophen 325 mg tablet RxNorm: 556951 1-2 Tablet(s) QID as needed for pain TAKE ONE TO TWO TABLETS BY MOUTH FOUR TIMES A DAY . MUST LAST 30 DAYS 03/31/2016 04/29/2016 Inactive (Response to an electronic controlled substance refill request - RxReferenceNumber: [id number]) Klor-Con 8 mEq tablet,extended release RxNorm: 335964 T FARRUKH ONE TABLET BY MOUTH TWICE A DAY 03/24/2016 09/29/2019 Inactive prednisone 20 mg tablet RxNorm: 015410 1 Tablet(s) PO QD 03/09/2016 0 03/08/2016 Inactive prednisone 20 mg tablet RxNorm: 764007 1 Tablet(s) PO QD 03/09/2016 0 03/13/2016 Inactive alprazolam 0.5 mg tablet RxNorm: 350301 3 Tablet(s) PO QHS as needed for sleep/stress 03/02/2016 01/21/2019 Inactive mupirocin 2 % topical ointment RxNorm: 970440 TOP twice daily to affected areas of face and neck 02/21/2016 04/25/2016 Inactive clonidine HCl 0.1 mg tablet RxNorm: 417097 TAKE ONE TAB LET BY MOUTH FOUR TIMES A DAY 02/15/2016 09/29/2019 Inactive clonidine HCl 0.1 mg tablet RxNorm: 678112 1 Tablet(s) PO QID 02/1404/25/2016 Inactive Premarin 1.25 mg tablet RxNorm: 192832 1-2 Tablet(s) PO QD 02/15/20 16 03/15/2016 Inactive Klor-Con 8 mEq tablet,extended release RxNorm: 609039 T FARRUKH ONE TABLET BY MOUTH TWICE A DAY 02/15/2016 03/15/2016 Inactive potassium chloride ER 20 mEq tablet,extended release(part/cr yst) RxNorm: 623864 2 Tablet(s) PO BID 02/15/2016 03/15/2016 Inactive Macrobid 100 mg capsule RxNorm: 061322 1 Capsule(s) PO BID 01/24/20 16 01/30/2016 Inactive prednisone 20 mg tablet RxNorm: 792192 Take 3tabs PO QD x 2 days, then 2 tabs PO QD x 2 days, then 1 tab PO QD x 2 days, then 1/2 tab PO QDy x 2 days 12/23/2015 04/25/2016 Inactive Klor-Con 8 mEq tablet,extended release RxNorm: 506050 T FARRUKH ONE TABLET BY MOUTH TWICE A DAY 12/20/2015 02/14/2016 Inactive alprazolam 1 mg tablet RxNorm: 918565 1 1/2 Tablet(s) PO QHS 201501/23/2016 Inactive nystatin 100,000 unit/gram topical cream RxNorm: 017626 APPLY TO AFFECTED AREA(S) TWO TIMES A DAY 11/30/2015 12/14/2015 Inactive Singulair 10 mg tablet RxNorm: 172508 TAKE ONE TABLET BY MOUTH JOSÉ Y 11/18/2015 04/25/2016 Inactive allopurinol 300 mg tablet RxNorm: 671678 1 Tablet(s) PO QD TAKE ONE TABLET BY MOUTH EVERY DAY 10/26/2015 04/22/2016 Inactive Singulair 10 mg tablet RxNorm: 417320 TAKE ONE TABLET BY MOUTH JOSÉ Y 10/26/2015 11/17/2015 Inactive duloxetine 60 mg capsule,delayed release RxNorm: 315492 1 Capsu le(s) PO QD 10/26/2015 04/22/2016 Inactive triamterene 75 mg-hydrochlorothiazide 50 mg tablet RxNorm: 3 42491 1 Tablet(s) PO QD 10/26/2015 11/14/2016 Inactive potassium chloride ER 20 mEq tablet,extended release(part/cr yst) RxNorm: 629134 2 Tablet(s) PO BID 10/26/2015 02/14/2016 Inactive Lipitor 10 mg tablet RxNorm: 084039 1 Tablet(s) PO QHS 10/26/2015 Inactive amlodipine 5 mg-benazepril 20 mg capsule RxNorm: 749097 1 Capsule(s) PO QHS replaces amlodopine 10/26/2015 04/22/2016 Inactive Bystolic 10 mg tablet RxNorm: 568404 1 Tablet(s) PO QHS 10/26/2015 Inactive amlodipine 5 mg-benazepril 20 mg capsule RxNorm: 976812 1 Capsule(s) PO QHS replaces amlodopine 10/06/2015 10/25/2015 Inactive amlodipine 5 mg tablet RxNorm: 907223 1 Tablet(s) PO QHS 09/30/2015 0 04/25/2016 Inactive metolazone 2.5 mg tablet RxNorm: 810074 TAKE ONE TABLET BY MOUTH DAILY NEEDED FOR EDEMA 09/30/2015 01/21/2019 Inactive duloxetine 60 mg capsule,delayed release RxNorm: 515136 1 Capsu le(s) PO QD 09/30/2015 10/25/2015 Inactive cephalexin 500 mg capsule RxNorm: 350781 1 Capsule(s) PO BID 201509/23/2015 Inactive mupirocin 2 % topical ointment RxNorm: 141465 TOP twice daily to affected areas of face and neck 09/14/2015 02/20/2016 Inactive baclofen 20 mg tablet RxNorm: 211366 1 Tablet(s) PO TID as needed for muscle spasm 09/01/2015 11/14/2016 Inactive clonidine HCl 0.1 mg tablet RxNorm: 976798 1 Tablet(s) PO QID 09/0102/14/2016 Inactive alprazolam 1 mg tablet RxNorm: 382558 1 1/2 Tablet(s) PO QHS 201409/09/2015 Inactive baclofen 20 mg tablet RxNorm: 240669 1 Tablet(s) PO TID as needed for muscle spasm 07/23/2015 09/01/2015 Inactive omeprazole 40 mg capsule,delayed release RxNorm: 944427 1 Capsu le(s) PO QD 07/23/2015 04/25/2016 Inactive alprazolam 1 mg tablet RxNorm: 865129 1 1/2 Tablet(s) PO QHS 201408/10/2015 Inactive Bystolic 10 mg tablet RxNorm: 147096 1 Tablet(s) PO BID 06/24/2015 Inactive allopurinol 300 mg tablet RxNorm: 155267 1 Tablet(s) PO QD TAKE ONE TABLET BY MOUTH EVERY DAY 06/23/2015 10/20/2015 Inactive alprazolam 1 mg tablet RxNorm: 829677 1 1/2 Tablet(s) PO QHS 201407/06/2015 Inactive clonidine HCl 0.1 mg tablet RxNorm: 349067 1 Tablet(s) PO QID 06/0209/01/2015 Inactive clonidine HCl 0.1 mg tablet RxNorm: 995270 1 Tablet(s) PO QID 06/0206/01/2015 Inactive Cymbalta 60 mg capsule,delayed release RxNorm: 741397 1 Capsule (s) PO QHS 06/02/2015 08/30/2015 Inactive Cymbalta 60 mg capsule,delayed release RxNorm: 341950 1 Capsule (s) PO QHS 06/02/2015 06/01/2015 Inactive clonidine HCl 0.1 mg tablet RxNorm: 544823 1 Tablet(s) PO TID 05/3106/01/2015 Inactive replaces 0.2mg dose metolazone 2.5 mg tablet RxNorm: 279635 TAKE ONE TABLET BY MOUTH DAILY NEEDED FOR EDEMA 05/21/2015 06/19/2015 Inactive Singulair 10 mg tablet RxNorm: 986145 TAKE ONE TABLET BY MOUTH JOSÉ Y 05/21/2015 10/17/2015 Inactive Cymbalta 30 mg capsule,delayed release RxNorm: 619643 1 Capsule (s) PO QHS 05/20/2015 11/14/2016 Inactive betamethasone valerate 0.1 % topical cream RxNorm: 470506 Appli cation TOP BID 05/10/2015 04/25/2016 Inactive Bactroban 2 % topical ointment RxNorm: 816399 Application TOP BID 0 05/10/2015 06/20/2015 Inactive baclofen 20 mg tablet RxNorm: 062537 1 Tablet(s) PO TID as needed 0 04/26/2015 07/23/2015 Inactive Lipitor 10 mg tablet RxNorm: 190021 1 Tablet(s) PO QHS 04/26/201508/2016 Inactive clonidine HCl 0.1 mg tablet RxNorm: 330645 1 Tablet(s) PO TID 04/2605/30/2015 Inactive replaces 0.2mg dose Klor-Con 8 mEq tablet,extended release RxNorm: 631718 1 Tablet( s) PO BID 04/26/2015 04/25/2016 Inactive metolazone 2.5 mg tablet RxNorm: 088773 1 Tablet(s) PO QD as ne eded for edema 04/26/2015 04/25/2015 Inactive triamterene 75 mg-hydrochlorothiazide 50 mg tablet RxNorm: 3 48113 1 Tablet(s) PO QD 04/26/2015 10/22/2015 Inactive Premarin 1.25 mg tablet RxNorm: 190903 1-2 Tablet(s) PO QD 04/26/20 15 10/22/2015 Inactive Bystolic 10 mg tablet RxNorm: 672554 1 Tablet(s) PO QAM TAKE ONE TABLET BY MOUTH EVERY MORNING 04/23/2015 06/23/2015 Inactive clonidine HCl 0.1 mg tablet RxNorm: 627500 1 Tablet(s) PO TID 03/2304/25/2015 Inactive replaces 0.2mg dose nystatin 100,000 unit/gram topical cream RxNorm: 965917 Applica tion TOP BID 03/23/2015 06/20/2015 Inactive baclofen 20 mg tablet RxNorm: 918262 1 Tablet(s) PO TID as needed 0 03/23/2015 04/25/2015 Inactive Premarin 1.25 mg tablet RxNorm: 444949 1-2 Tablet(s) PO QD 03/23/20 15 04/25/2015 Inactive Klor-Con 8 mEq tablet,extended release RxNorm: 399637 1 Tablet( s) PO BID 03/23/2015 04/25/2015 Inactive cefdinir 300 mg capsule RxNorm: 045712 2 Capsule(s) PO QD 03/16/2015 03/25/2015 Inactive baclofen 20 mg tablet RxNorm: 033984 1 Tablet(s) PO TID as needed 0 03/02/2015 03/22/2015 Inactive allopurinol 300 mg tablet RxNorm: 973976 1 Tablet(s) PO QD TAKE ONE TABLET BY MOUTH EVERY DAY 02/22/2015 05/22/2015 Inactive Klor-Con M20 mEq tablet,extended release RxNorm: 911542 2 Tablet(s) PO BID to use with lasix 02/22/2015 06/20/2015 Inactive clonidine HCl 0.1 mg tablet RxNorm: 174830 1 Tablet(s) PO TID 02/1903/22/2015 Inactive replaces 0.2mg dose Lipitor 10 mg tablet RxNorm: 047813 1 Tablet(s) PO QHS 01/20/201506/2015 Inactive Lipitor 10 mg tablet RxNorm: 188874 1 Tablet(s) PO QHS 01/20/2015 Inactive Singulair 10 mg tablet RxNorm: 258313 1 Tablet(s) PO QD TAKE ONE TABLET BY MOUTH EVERY DAY 11/20/2014 05/18/2015 Inactive Lipitor 10 mg tablet RxNorm: 931067 1 Tablet(s) PO QHS 11/20/201408/2015 Inactive allopurinol 300 mg tablet RxNorm: 731042 1 Tablet(s) PO QD TAKE ONE TABLET BY MOUTH EVERY DAY 11/20/2014 02/16/2015 Inactive Bystolic 10 mg tablet RxNorm: 637075 1 Tablet(s) PO QAM TAKE ONE TABLET BY MOUTH EVERY MORNING 11/20/2014 04/22/2015 Inactive Klor-Con 8 mEq tablet,extended release RxNorm: 821124 1 Tablet( s) PO BID 11/20/2014 02/17/2015 Inactive baclofen 20 mg tablet RxNorm: 999794 1 Tablet(s) PO TID as needed 0 11/20/2014 01/21/2019 Inactive baclofen 20 mg tablet RxNorm: 520444 1 Tablet(s) PO TID as needed 0 10/27/2014 11/19/2014 Inactive baclofen 20 mg tablet RxNorm: 578987 1 Tablet(s) PO TID as needed 0 10/26/2014 03/01/2015 Inactive allopurinol 300 mg tablet RxNorm: 575055 1 Tablet(s) PO QD TAKE ONE TABLET BY MOUTH EVERY DAY 10/26/2014 11/20/2014 Inactive Bystolic 10 mg tablet RxNorm: 406289 1 Tablet(s) PO QAM TAKE ONE TABLET BY MOUTH EVERY MORNING 10/26/2014 11/20/2014 Inactive clonidine HCl 0.1 mg tablet RxNorm: 610757 1 Tablet(s) PO TID 09/2805/27/2019 Inactive replaces 0.2mg dose clonidine HCl 0.1 mg tablet RxNorm: 093210 1 Tablet(s) PO TID 09/2802/18/2015 Inactive replaces 0.2mg dose baclofen 20 mg tablet RxNorm: 343227 1 Tablet(s) PO TID as needed 1 11/01/2013 08/30/2014 Inactive Lipitor 10 mg tablet RxNorm: 031732 1 Tablet(s) PO QHS 08/31/2014 Inactive baclofen 20 mg tablet RxNorm: 181465 1 Tablet(s) PO TID as needed 1 11/01/2013 10/26/2014 Inactive triamterene 75 mg-hydrochlorothiazide 50 mg tablet RxNorm: 3 99574 1 Tablet(s) PO QD 08/31/2014 02/26/2015 Inactive Klor-Con 8 mEq tablet,extended release RxNorm: 720685 1 Tablet( s) PO BID 08/31/2014 11/20/2014 Inactive baclofen 20 mg tablet RxNorm: 861299 1 Tablet(s) PO TID as needed 1 09/30/2013 10/25/2014 Inactive baclofen 20 mg tablet RxNorm: 644255 1 Tablet(s) PO TID as needed 1 09/30/2013 08/31/2014 Inactive omeprazole 40 mg capsule,delayed release RxNorm: 618857 1 Capsu le(s) PO QD 07/21/2014 07/23/2015 Inactive Flonase 50 mcg/actuation nasal spray,suspension RxNorm: 8963 23 1 [place] NASAL BID 07/15/2014 04/09/2017 Inactive hydrocodone 10 mg-acetaminophen 325 mg tablet RxNorm: 490951 1-2 Tablet(s) QID as needed for pain TAKE ONE TO TWO TABLETS BY MOUTH FOUR TIMES A DAY . MUST LAST 30 DAYS 06/30/2014 07/27/2014 Inactive (Response to an electronic controlled substance refill request - RxReferenceNumber: [id number]) baclofen 20 mg tablet RxNorm: 638441 1 Tablet(s) PO TID as needed 1 07/31/2014 Inactive Singulair 10 mg tablet RxNorm: 257775 1 Tablet(s) PO QD TAKE ONE TABLET BY MOUTH EVERY DAY 05/25/2014 11/20/2014 Inactive Bystolic 10 mg tablet RxNorm: 098732 TAKE ONE TABLET BY MOUTH E VERY MORNING 05/25/2014 09/21/2014 Inactive allopurinol 300 mg tablet RxNorm: 444809 1 Tablet(s) PO QD TAKE ONE TABLET BY MOUTH EVERY DAY 05/25/2014 10/21/2014 Inactive baclofen 20 mg tablet RxNorm: 476157 1 Tablet(s) PO TID as needed 0 05/25/2014 06/29/2014 Inactive allopurinol 300 mg tablet RxNorm: 261873 TAKE ONE TABLET BY LOPEZ TH EVERY DAY 05/25/2014 09/21/2014 Inactive Singulair 10 mg tablet RxNorm: 613606 1 Tablet(s) PO QD TAKE ONE TABLET BY MOUTH EVERY DAY 05/25/2014 05/24/2014 Inactive Bystolic 10 mg tablet RxNorm: 745559 1 Tablet(s) PO QAM TAKE ONE TABLET BY MOUTH EVERY MORNING 05/25/2014 10/21/2014 Inactive metolazone 2.5 mg tablet RxNorm: 874430 1 Tablet(s) PO QD as ne eded for edema 05/18/2014 04/25/2015 Inactive Lasix 40 mg tablet RxNorm: 792590 1 Tablet(s) PO QAM s hould take potassium supplementation with this medication 05/14/2014 05/17/2014 Inactive hydrocodone 10 mg-acetaminophen 325 mg tablet RxNorm: 695575 1-2 Tablet(s) QID as needed for pain TAKE ONE TO TWO TABLETS BY MOUTH FOUR TIMES A DAY . MUST LAST 30 DAYS 05/07/2014 06/05/2014 Inactive (Response to an electronic controlled substance refill request - RxReferenceNumber: [id number]) alprazolam 0.5 mg tablet RxNorm: 633933 TAKE ONE TABLET BY MOUTH TWICE A DAY , MUST LAST 30 DAYS 05/07/2014 05/22/2016 Inactive (Response to a n electronic controlled substance refill request - RxReferenceNumber: [id number]) diclofenac sodium 75 mg tablet,delayed release RxNorm: 97797 6 1 Tablet(s) PO BID for pain 04/24/2014 07/20/2014 Inactive Celebrex 200 mg capsule RxNorm: 672167 TAKE ONE CAPSULE BY MOUT H EVERY DAY 04/24/2014 07/20/2014 Inactive alprazolam 0.5 mg tablet RxNorm: 545652 TAKE ONE TABLET BY MOUTH TWICE A DAY , MUST LAST 30 DAYS 03/24/2014 04/22/2014 Inactive (Response to a n electronic controlled substance refill request - RxReferenceNumber: [id number]) diclofenac sodium 75 mg tablet,delayed release RxNorm: 78778 6 1 Tablet(s) PO BID for pain 03/24/2014 04/24/2014 Inactive clonidine HCl 0.1 mg tablet RxNorm: 072750 1 Tablet(s) PO TID 03/2409/28/2014 Inactive replaces 0.2mg dose Klor-Con 8 mEq tablet,extended release RxNorm: 200776 1 Tablet( s) PO BID 02/26/2014 08/31/2014 Inactive diclofenac sodium 75 mg tablet,delayed release RxNorm: 37555 6 1 Tablet(s) PO BID for pain 02/25/2014 03/24/2014 Inactive hydrocodone 10 mg-acetaminophen 325 mg tablet RxNorm: 838693 1-2 Tablet(s) QID as needed for pain TAKE ONE TO TWO TABLETS BY MOUTH FOUR TIMES A DAY . MUST LAST 30 DAYS 02/25/2014 03/26/2014 Inactive (Response to an electronic controlled substance refill request - RxReferenceNumber: [id number]) alprazolam 0.5 mg tablet RxNorm: 396296 Tablet(s) PO BI D as needed for anxiety TAKE ONE TABLET BY MOUTH TWICE A DAY , MUST LAST 30 DAYS 02/25/2014 Inactive (Response to an electronic controlled [place] bstance refill request - RxReferenceNumber: [id number]) [AttnRPh: Saving apply/adjudicate RxGRP:SG20 RxBIN:[id number] RxPCN: ID#:[id number]] alprazolam 0.5 mg tablet RxNorm: 867108 Tablet(s) TAKE ONE TABLET BY MOUTH TWICE A DAY , MUST LAST 30 DAYS 01/27/2014 02/24/2014 Inactive (Respo nse to an electronic controlled substance refill request - RxReferenceNumber: [id number]) [AttnRPh: Saving apply/adjudicate RxGRP:SG20 RxBIN:[id number] RxPCN:HT ID#:[id number]] hydrocodone 10 mg-acetaminophen 325 mg tablet RxNorm: 555586 1-2 Tablet(s) QID as needed for pain TAKE ONE TO TWO TABLETS BY MOUTH FOUR TIMES A DAY . MUST LAST 30 DAYS 01/27/2014 02/24/2014 Inactive (Response to an electronic controlled substance refill request - RxReferenceNumber: [id number]) alprazolam 0.5 mg tablet RxNorm: 766792 TAKE ONE TABLET BY MOUTH TWICE A DAY , MUST LAST 30 DAYS 01/27/2014 01/26/2014 Inactive (Response to a n electronic controlled substance refill request - RxReferenceNumber: [id number]) Premarin 1.25 mg tablet RxNorm: 478744 1-2 Tablet(s) PO QD 01/28/20 14 07/25/2014 Inactive alprazolam 0.5 mg tablet RxNorm: 323597 TAKE ONE TABLET BY MOUTH TWICE A DAY , MUST LAST 30 DAYS 01/27/2014 01/27/2014 Inactive (Response to a n electronic controlled substance refill request - RxReferenceNumber: [id number]) hydrocodone 10 mg-acetaminophen 325 mg tablet RxNorm: 843192 TAKE ONE TO TWO TABLETS BY MOUTH FOUR TIMES A DAY . MUST LAST 30 DAYS 01/27/20142013 Inactive (Response to an electronic controlled [place] bstance refill request - RxReferenceNumber: [id number]) Celebrex 200 mg capsule RxNorm: 688734 1 Capsule(s) PO QD TAKE ONE CAPSULE BY MOUTH EVERY DAY 12/29/2013 04/27/2014 Inactive hydrocodone 10 mg-acetaminophen 325 mg tablet RxNorm: 432369 1-2 Tablet(s) PO QID as needed for severe pain 12/29/2013 01/27/2014 Inactive allopurinol 300 mg tablet RxNorm: 955089 1 Tablet(s) PO QD TAKE ONE TABLET BY MOUTH EVERY DAY 12/29/2013 05/24/2014 Inactive alprazolam 0.5 mg tablet RxNorm: 019397 TAKE ONE TABLET BY MOUTH TWICE A DAY , MUST LAST 30 DAYS 12/29/2013 01/27/2014 Inactive (Response to a n electronic controlled substance refill request - RxReferenceNumber: [id number]) Celebrex 200 mg capsule RxNorm: 203315 1 Capsule(s) PO QD TAKE ONE CAPSULE BY MOUTH EVERY DAY 12/29/2013 12/29/2013 Inactive Bystolic 10 mg tablet RxNorm: 527963 1 Tablet(s) PO QAM TAKE ONE TABLET BY MOUTH EVERY MORNING 12/29/2013 05/24/2014 Inactive Bystolic 10 mg tablet RxNorm: 514753 1 Tablet(s) PO QAM TAKE ONE TABLET BY MOUTH EVERY MORNING 12/29/2013 12/29/2013 Inactive Singulair 10 mg tablet RxNorm: 105158 1 Tablet(s) PO QD TAKE ONE TABLET BY MOUTH EVERY DAY 12/29/2013 05/25/2014 Inactive hydrocodone 10 mg-acetaminophen 325 mg tablet RxNorm: 176169 TAKE ONE TO TWO TABLETS BY MOUTH FOUR TIMES A DAY . MUST LAST 30 DAYS 12/29/20132013 Inactive (Response to an electronic controlled [place] bstance refill request - RxReferenceNumber: [id number]) Trazadone 75mg Tablet RxNorm: 1 Tablet(s) PO QHS as needed 03/23/2014 Inactive Trazadone 75mg Tablet RxNorm: 1 Tablet(s) PO QHS 12/24/20132014 Inactive Soma 350 mg tablet RxNorm: 374744 Tablet(s) PO TAKE ON E TABLET BY MOUTH THREE TIMES A DAY NEEDED FOR MUSCLE SPASMS. THIS MUST LAST 30 DAYS BETWEEN REFILLS. 12/10/2013 12/22/2013 Inactive (Appended: Cont rolled substance eRx refill - RxReferenceNumber: [id number]) diclofenac sodium 75 mg tablet,delayed release RxNorm: 50663 6 1 Tablet(s) PO BID for pain 12/10/2013 02/24/2014 Inactive allopurinol 300 mg tablet RxNorm: 994871 1 Tablet(s) PO QD 11/20/19 14 12/29/2013 Inactive alprazolam 0.5 mg tablet RxNorm: 701921 2 Tablet(s) PO BID 11/13/19 14 12/29/2013 Inactive prn clonidine 0.1 mg tablet RxNorm: 688257 1 Tablet(s) PO TID 11/12/2013 02/09/2014 Inactive replaces 0.2mg dose Klor-Con M20 mEq tablet,extended release RxNorm: 471608 2 Tablet(s) PO BID to use with lasix 11/12/2013 05/10/2014 Inactive Singulair 10 mg tablet RxNorm: 869189 1 Tablet(s) PO QD 11/12/2013 Inactive hydrocodone 10 mg-acetaminophen 325 mg tablet RxNorm: 682750 1-2 Tablet(s) PO QID as needed for severe pain 11/12/2013 12/28/2013 Inactive Bystolic 10 mg tablet RxNorm: 999379 1 Tablet(s) PO QAM 11/12/2013 Inactive Soma 350 mg tablet RxNorm: 255746 Tablet(s) PO TAKE ON E TABLET BY MOUTH THREE TIMES A DAY NEEDED FOR MUSCLE SPASMS. THIS MUST LAST 30 DAYS BETWEEN REFILLS. 10/13/2013 12/10/2013 Inactive (Appended: Cont rolled substance eRx refill - RxReferenceNumber: [id number]) hydrocodone 10 mg-acetaminophen 325 mg tablet RxNorm: 025362 1-2 Tablet(s) PO QID as needed for severe pain 10/03/2013 11/11/2013 Inactive diclofenac sodium 75 mg tablet,delayed release RxNorm: 83713 8 1 Tablet(s) PO BID for pain 09/11/2013 12/10/2013 Inactive alprazolam 0.5 mg tablet RxNorm: 565187 1 Tablet(s) PO BID May refill on 04/26/13 09/01/2013 10/30/2013 Inactive prn hydrocodone 10 mg-acetaminophen 325 mg tablet RxNorm: 898547 1-2 Tablet(s) PO QID as needed for severe pain 09/01/2013 10/02/2013 Inactive triamterene 75 mg-hydrochlorothiazide 50 mg tablet RxNorm: 3 86519 1 Tablet(s) PO QD 08/04/2013 08/31/2014 Inactive cyclobenzaprine 10 mg tablet RxNorm: 939462 1 Tablet(s) PO TID prn spasm 08/04/2013 08/13/2013 Inactive clonidine 0.1 mg tablet RxNorm: 108143 1 Tablet(s) PO TID 08/04/2013 11/11/2013 Inactive replaces 0.2mg dose cyclobenzaprine 10 mg tablet RxNorm: 449181 1 Tablet(s) PO TID prn spasm 07/23/2013 08/01/2013 Inactive hydrocodone 10 mg-acetaminophen 325 mg tablet RxNorm: 005762 2 1-2 Tablet(s) PO QID as needed for severe pain 06/09/2013 08/07/2013 Inactive Singulair 10 mg tablet RxNorm: 494836 1 Tablet(s) PO QD 05/29/2013 Inactive Klor-Con 8 mEq tablet,extended release RxNorm: 071940 1 Tablet( s) PO BID 05/29/2013 02/26/2014 Inactive allopurinol 300 mg tablet RxNorm: 974084 1 Tablet(s) PO QD 05/29/20 13 11/19/2013 Inactive Bystolic 10 mg tablet RxNorm: 159287 1 Tablet(s) PO QAM take one daily in the morning. 05/29/2013 11/11/2013 Inactive scopolamine 1.5 mg 72 hr Transderm Patch RxNorm: 061941 Application TD Q72H for motion sickness 05/26/2013 07/22/2013 Inactive Soma 350 mg tablet RxNorm: 675844 1 Tablet(s) PO TID as needed for spasm 05/19/2013 10/13/2013 Inactive diclofenac sodium 75 mg tablet,delayed release RxNorm: 00560 8 1 Tablet(s) PO BID for pain 05/14/2013 07/22/2013 Inactive allopurinol 300 mg tablet RxNorm: 221321 1 Tablet(s) PO QD 04/25/20 13 05/28/2013 Inactive alprazolam 0.5 mg tablet RxNorm: 447685 1 Tablet(s) PO BID May refill on 04/26/13 04/25/2013 06/23/2013 Inactive prn Celebrex 200 mg capsule RxNorm: 592678 1 Capsule(s) PO QD 04/16/2013 12/29/2013 Inactive alprazolam 0.5 mg tablet RxNorm: 079427 1 Tablet(s) PO BID May refill on 04/26/13 04/16/2013 04/24/2013 Inactive prn Soma 350 mg tablet RxNorm: 369965 1 Tablet(s) PO TID as needed for spasm 04/16/2013 No Stop Date Active Lasix 40 mg tablet RxNorm: 268300 1 Tablet(s) PO QAM s hould take potassium supplementation with this medication 04/16/2013 06/14/2013 Inactive clonidine 0.1 mg tablet RxNorm: 950687 1 Tablet(s) PO TID 04/16/2013 08/03/2013 Inactive replaces 0.2mg dose prednisone 20 mg tablet RxNorm: 650746 1 Tablet(s) PO BID 04/16/2013 04/20/2013 Inactive diclofenac sodium 75 mg tablet,delayed release RxNorm: 91448 8 1 Tablet(s) PO BID for pain 04/14/2013 05/13/2013 Inactive hydrocodone 10 mg-acetaminophen 325 mg tablet RxNorm: 255861 2 1-2 Tablet(s) PO QID as needed for severe pain 04/14/2013 No Stop Date Active Lasix 40 mg tablet RxNorm: 672086 1 Tablet(s) PO QAM s hould take potassium supplementation with this medication 03/31/2013 04/15/2013 Inactive Celebrex 200 mg capsule RxNorm: 055252 1 Capsule(s) PO QD 03/31/2013 04/15/2013 Inactive alprazolam 0.5 mg tablet RxNorm: 768924 1 Tablet(s) PO BID 03/28/20 13 04/15/2013 Inactive prn hydrocodone 10 mg-acetaminophen 325 mg tablet RxNorm: 793101 2 1-2 Tablet(s) PO QID as needed for severe pain 03/10/2013 No Stop Date Active metformin ER 500 mg 24 hr tablet,extended release RxNorm: 86 1018 1 Tablet(s) PO QD 03/06/2013 07/22/2013 Inactive clindamycin 300 mg capsule RxNorm: 895891 2 Capsule(s) PO TID 03/0503/14/2013 Inactive Zaroxolyn 2.5 mg tablet RxNorm: 732149 1 Tablet(s) PO QAM 03/05/2013 05/19/2015 Inactive amlodipine 10 mg tablet RxNorm: 217065 1 Tablet(s) PO QD 03/03/2013 0 05/25/2013 Inactive Norvasc 10 mg tablet RxNorm: 707751 1 Tablet(s) PO QD 02/28/201307/11 Inactive Celebrex 200 mg capsule RxNorm: 159339 1 Capsule(s) PO QD 02/28/2013 03/30/2013 Inactive diclofenac sodium 75 mg tablet,delayed release RxNorm: 54924 8 1 Tablet(s) PO BID for pain 02/14/2013 03/15/2013 Inactive Soma 350 mg tablet RxNorm: 282140 1 Tablet(s) PO TID as needed for spasm 02/14/2013 No Stop Date Active hydrocodone 10 mg-acetaminophen 325 mg tablet RxNorm: 035516 2 1-2 Tablet(s) PO QID as needed for severe pain 02/14/2013 No Stop Date Active Norvasc 10 mg tablet RxNorm: 089214 1 Tablet(s) PO QD 02/10/201302/09 Inactive Celebrex 200 mg capsule RxNorm: 423675 1 Capsule(s) PO QD 01/27/2013 01/26/2013 Inactive Premarin 1.25 mg tablet RxNorm: 820714 1-2 Tablet(s) PO QD 01/28/20 13 06/25/2013 Inactive alprazolam 0.5 mg tablet RxNorm: 452844 1 Tablet(s) PO BID 01/28/20 13 02/25/2013 Inactive prn amlodipine 5 mg tablet RxNorm: 135220 1 Tablet(s) PO QD 01/27/2013 Inactive Celebrex 200 mg capsule RxNorm: 910786 1 Capsule(s) PO QD 01/27/2013 02/27/2013 Inactive gabapentin 600 mg tablet RxNorm: 434592 1 Tablet(s) PO QHS 01/16/20 13 07/22/2013 Inactive Soma 350 mg tablet RxNorm: 604275 1 Tablet(s) PO TID as needed for spasm 01/15/2013 No Stop Date Active hydrocodone 10 mg-acetaminophen 325 mg tablet RxNorm: 500214 2 1-2 Tablet(s) PO QID as needed for severe pain 01/15/2013 No Stop Date Active Soma 350 mg tablet RxNorm: 741924 1 Tablet(s) PO TID as needed for spasm 01/13/2013 No Stop Date Active alprazolam 0.5 mg tablet RxNorm: 622016 1 Tablet(s) PO BID 12/31/19 13 01/26/2013 Inactive prn diclofenac sodium 75 mg tablet,delayed release RxNorm: 50038 8 1 Tablet(s) PO BID for pain 12/09/2012 01/07/2013 Inactive gabapentin 600 mg tablet RxNorm: 565808 1 Tablet(s) PO QHS 12/10/19 13 01/07/2013 Inactive hydrocodone 10 mg-acetaminophen 325 mg tablet RxNorm: 801000 2 1-2 Tablet(s) PO QID as needed for severe pain 12/02/2012 No Stop Date Active Levaquin 750 mg tablet RxNorm: 320263 1 Tablet(s) PO QD 11/21/2012 Inactive Singulair 10 mg tablet RxNorm: 827928 1 Tablet(s) PO QD 11/11/2012 Inactive clonidine 0.2 mg tablet RxNorm: 936402 1 Tablet(s) PO TID 11/11/2012 04/15/2013 Inactive alprazolam 0.5 mg tablet RxNorm: 802997 1 Tablet(s) PO BID 11/12/19 13 12/10/2012 Inactive prn Klor-Con 8 mEq tablet,extended release RxNorm: 912840 1 Tablet( s) PO BID 11/11/2012 03/04/2013 Inactive hydrocodone 10 mg-acetaminophen 325 mg tablet RxNorm: 373028 2 1-2 Tablet(s) PO QID as needed for severe pain 11/06/2012 No Stop Date Active alprazolam 0.5 mg tablet RxNorm: 142027 1 Tablet(s) PO BID 10/15/19 13 11/10/2012 Inactive prn hydrocodone-acetaminophen 10 mg-325 mg tablet RxNorm: 505529 2 1-2 Tablet(s) PO QID as needed for severe pain 10/10/2012 10/09/2012 Inactive allopurinol 300 mg tablet RxNorm: 653367 1 Tablet(s) PO QD 09/20/19 13 12/18/2012 Inactive alprazolam 0.5 mg tablet RxNorm: 206373 1 Tablet(s) PO BID 09/17/19 13 10/14/2012 Inactive prn hydrocodone-acetaminophen 10 mg-325 mg tablet RxNorm: 467121 2 1-2 Tablet(s) PO QID as needed for severe pain 08/22/2012 08/21/2012 Inactive Norvasc 10 mg tablet RxNorm: 382809 1 Tablet(s) PO QD 08/12/201201/10 Inactive Premarin 1.25 mg tablet RxNorm: 399248 1-2 Tablet(s) PO QD 07/30/20 12 12/26/2012 Inactive alprazolam 0.5 mg tablet RxNorm: 887006 1 Tablet(s) PO BID 07/29/20 12 08/27/2012 Inactive prn Klor-Con 8 mEq tablet,extended release RxNorm: 986017 1 Tablet( s) PO BID 07/29/2012 11/10/2012 Inactive hydrocodone-acetaminophen 10 mg-325 mg tablet RxNorm: 233000 2 1-2 Tablet(s) PO QID as needed for severe pain 07/29/2012 No Stop Date Active Premarin 1.25 mg tablet RxNorm: 527398 1-2 Tablet(s) PO QD 07/29/2007/29/2012 Inactive clonidine 0.2 mg tablet RxNorm: 190095 1 Tablet(s) PO TID 07/29/2012 10/28/2012 Inactive ketorolac 10 mg tablet RxNorm: 307039 1 Tablet(s) PO QID prn he jake 07/18/2012 No Stop Date Active hydrocodone-acetaminophen 10 mg-325 mg tablet RxNorm: 886400 2 1-2 Tablet(s) PO QID as needed for severe pain 07/03/2012 No Stop Date Active amlodipine 5 mg tablet RxNorm: 061991 1 Tablet(s) PO QD 07/02/2012 Inactive allopurinol 300 mg tablet RxNorm: 053801 1 Tablet(s) PO QD 07/02/20 12 09/19/2012 Inactive Celebrex 200 mg capsule RxNorm: 990732 1 Capsule(s) PO QD for j oint pain 06/26/2012 10/23/2012 Inactive diclofenac sodium 75 mg tablet,delayed release RxNorm: 46697 8 1 Tablet(s) PO BID for pain 06/19/2012 09/16/2012 Inactive hydrocodone-acetaminophen 10 mg-325 mg tablet RxNorm: 672822 2 1-2 Tablet(s) PO QID as needed for severe pain 06/10/2012 No Stop Date Active alprazolam 0.5 mg tablet RxNorm: 218767 1 Tablet(s) PO BID 06/03/20 12 07/02/2012 Inactive prn ketorolac 10 mg tablet RxNorm: 963877 1 Tablet(s) PO Q8H 05/27/2012 0 01/21/2019 Inactive as needed for headache hydrocodone-acetaminophen 10 mg-325 mg tablet RxNorm: 329397 2 1-2 Tablet(s) PO QID as needed for severe pain 05/15/2012 No Stop Date Active allopurinol 300 mg tablet RxNorm: 980019 1 Tablet(s) PO QD 05/14/20 12 06/12/2012 Inactive allopurinol 300 mg tablet RxNorm: 300218 1 Tablet(s) PO QD 05/14/20 12 05/13/2012 Inactive amlodipine 5 mg tablet RxNorm: 611578 1 Tablet(s) PO QD 05/01/2012 Inactive amlodipine 5 mg Tab RxNorm: 362609 1 Tablet(s) PO QD 05/01/201204/30 Inactive Celebrex 200 mg capsule RxNorm: 332246 1 Capsule(s) PO QD for j oint pain 05/01/2012 06/25/2012 Inactive Singulair 10 mg tablet RxNorm: 565173 1 Tablet(s) PO QD 05/01/2012 Inactive alprazolam 0.5 mg tablet RxNorm: 146700 1 Tablet(s) PO BID 05/01/2005/30/2012 Inactive prn Celebrex 200 mg Cap RxNorm: 720535 1 Capsule(s) PO QD for joint raud n 05/01/2012 04/30/2012 Inactive hydrocodone-acetaminophen 10 mg-325 mg tablet RxNorm: 557221 2 1-2 Tablet(s) PO QID as needed for severe pain 04/19/2012 No Stop Date Active Lasix 40 mg tablet RxNorm: 686284 1 Tablet(s) PO QAM s hould take potassium supplementation with this medication 04/05/2012 06/03/2012 Inactive alprazolam 0.5 mg Tab RxNorm: 259894 1 Tablet(s) PO BID 04/05/2012 Inactive prn hydrocodone-acetaminophen 10 mg-325 mg Tab RxNorm: 2594307 1-2 Tablet(s) PO QID as needed for severe pain 03/25/2012 03/24/2012 Inactive clonidine 0.2 mg Tab RxNorm: 826693 1 Tablet(s) PO TID 03/08/2012 Inactive alprazolam 0.5 mg Tab RxNorm: 795258 1 Tablet(s) PO BID 03/08/2012 Inactive prn Soma 350 mg tablet RxNorm: 878387 1 Tablet(s) PO TID for spasm 02/0903/18/2012 Inactive clonidine 0.2 mg tablet RxNorm: 260041 1 Tablet(s) PO TID 03/08/2012 07/28/2012 Inactive Celebrex 200 mg Cap RxNorm: 468902 1 Capsule(s) PO QD for joint radu n 03/01/2012 04/29/2012 Inactive amlodipine 5 mg Tab RxNorm: 853554 1 Tablet(s) PO QD 02/26/201202/24 Inactive amlodipine 5 mg Tab RxNorm: 540962 1 Tablet(s) PO QD 02/26/201204/25 Inactive Bactroban 2 % Ointment RxNorm: 890620 Application TOP QID to sores 02/23/2012 No Stop Date Active amlodipine 2.5 mg tablet RxNorm: 612397 1 Tablet(s) PO QHS 02/20/20 12 02/25/2012 Inactive doxycycline hyclate 100 mg Cap RxNorm: 5463789 1 Capsule(s) PO BID 02/20/2012 02/29/2012 Inactive hydrocodone-acetaminophen 10 mg-325 mg Tab RxNorm: 4001892 1-2 T ablet(s) PO QID 02/08/2012 No Stop Date Active alprazolam 0.5 mg Tab RxNorm: 385570 1 Tablet(s) PO BID 02/08/2012 Inactive prn Singulair 10 mg Tab RxNorm: 689349 1 Tablet(s) PO QD 02/08/201204/30 Inactive Soma 350 mg Tab RxNorm: 085530 1 Tablet(s) PO TID for spasm 012 03/07/2012 Inactive Soma 350 mg Tab RxNorm: 393560 1 Tablet(s) PO TID for spasm 012 02/05/2012 Inactive diclofenac sodium 75 mg tablet,delayed release RxNorm: 15753 8 1 Tablet(s) PO BID for pain 02/01/2012 03/18/2012 Inactive Celebrex 200 mg Cap RxNorm: 706813 1 Capsule(s) PO QD for joint radu n 01/30/2012 02/28/2012 Inactive Lasix 40 mg Tab RxNorm: 244176 1 Tablet(s) PO QAM 01/24/2012 03/18/20 12 Inactive potassium chloride ER 20 mEq tablet,extended release(part/cr yst) RxNorm: 837229 2 Tablet(s) PO BID 01/24/2012 02/22/2012 Inactive alprazolam 0.5 mg Tab RxNorm: 841708 1 Tablet(s) PO BID 01/11/2012 Inactive prn hydrocodone-acetaminophen 10 mg-325 mg Tab RxNorm: 3368541 1-2 T ablet(s) PO QID 01/11/2012 No Stop Date Active Ambien 10 mg Tab RxNorm: 068230 1 Tablet(s) PO QHS 01/11/2012 012 Inactive Klor-Con 8 mEq Tab RxNorm: 360411 1 Tablet(s) PO BID 01/11/201201/22 Inactive diclofenac sodium 75 mg Tab, Delayed Release RxNorm: 206931 1 Tablet(s) PO BID for pain 01/10/2012 01/31/2012 Inactive Ambien 10 mg Tab RxNorm: 459533 1 Tablet(s) PO QHS 12/11/2011 012 Inactive alprazolam 0.5 mg Tab RxNorm: 226708 1 Tablet(s) PO BID 12/11/2011 Inactive prn hydrocodone 10 mg-acetaminophen 325 mg tablet RxNorm: 504489 1-2 Tablet(s) PO TID 11/28/2011 No Stop Date Active as needed for pa in - Previous quantity #240, will start dosing for #180 in April 2011 per Doctor Appiah. Ambien 10 mg Tab RxNorm: 494640 1 Tablet(s) PO QHS 11/09/2011 012 Inactive alprazolam 0.5 mg Tab RxNorm: 058169 1 Tablet(s) PO BID 11/09/2011 Inactive prn hydrocodone-acetaminophen 10 mg-325 mg Tab RxNorm: 7683980 1-2 T ablet(s) PO TID 11/06/2011 No Stop Date Active as needed for pain - Previous quantity #240, will start dosing for #180 in April 2011 per Doctor Td. Singulair 10 mg Tab RxNorm: 465663 1 Tablet(s) PO QD 10/13/201110/12 Inactive Singulair 10 mg Tab RxNorm: 924398 1 Tablet(s) PO QD 10/13/201102/06 Inactive hydrocodone-acetaminophen 10 mg-325 mg Tab RxNorm: 6236741 1-2 T ablet(s) PO TID 10/10/2011 10/09/2011 Inactive as needed for pain - Previous quantity #240, will start dosing for #180 in April 2011 per Doctor Td. hydrocodone-acetaminophen 10 mg-325 mg Tab RxNorm: 8115269 1-2 T ablet(s) PO TID 10/09/2011 No Stop Date Active as needed for pain - Previous quantity #240, will start dosing for #180 in April 2011 per Doctor Td. Klor-Con 8 mEq Tab RxNorm: 620492 1 Tablet(s) PO BID 10/02/201101/09 Inactive triamterene 75 mg-hydrochlorothiazide 50 mg tablet RxNorm: 3 57063 1 Tablet(s) PO QD 09/14/2011 03/06/2013 Inactive Ambien 10 mg Tab RxNorm: 734335 1 Tablet(s) PO QHS 09/14/2011 012 Inactive hydrocodone-acetaminophen 10 mg-325 mg Tab RxNorm: 2220777 1-2 T ablet(s) PO TID 09/14/2011 No Stop Date Active as needed for pain - Previous quantity #240, will start dosing for #180 in April 2011 per Doctor Td. alprazolam 0.5 mg Tab RxNorm: 499122 1 Tablet(s) PO BID 09/14/2011 Inactive prn Zithromax 500 mg Tab RxNorm: 477548 1 Tablet(s) PO QD 09/13/201109/10 Inactive prednisone 20 mg Tab RxNorm: 855553 1 Tablet(s) PO BID 08/31/2011 Inactive Ambien 10 mg Tab RxNorm: 673879 1 Tablet(s) PO QHS 08/17/2011 011 Inactive hydrocodone-acetaminophen 10 mg-325 mg Tab RxNorm: 5015812 1-2 T ablet(s) PO TID 08/17/2011 No Stop Date Active as needed for pain - Previous quantity #240, will start dosing for #180 in April 2011 per Doctor Td. clonidine 0.2 mg Tab RxNorm: 726649 1 Tablet(s) PO TID 08/17/201112/2011 Inactive Ambien 10 mg Tab RxNorm: 322847 1 Tablet(s) PO QHS 08/17/2011 019 Inactive alprazolam 0.5 mg Tab RxNorm: 265675 1 Tablet(s) PO BID 08/17/2011 Inactive prn hydrocodone-acetaminophen 10 mg-325 mg Tab RxNorm: 5539101 1-2 T ablet(s) PO TID 08/17/2011 08/16/2011 Inactive as needed for pain - Previous quantity #240, will start dosing for #180 in April 2011 per Doctor Td. Singulair 10 mg Tab RxNorm: 973661 1 Tablet(s) PO QD 08/17/201108/16 Inactive Klor-Con 8 mEq Tab RxNorm: 367314 1 Tablet(s) PO QD 08/17/20112011 Inactive alprazolam 0.5 mg Tab RxNorm: 272869 1 Tablet(s) PO BID 07/20/2011 Inactive prn Ambien 10 mg Tab RxNorm: 715686 1 Tablet(s) PO QHS 07/20/2011 012 Inactive Singulair 10 mg Tab RxNorm: 869470 1 Tablet(s) PO QD 07/20/201107/19 Inactive Premarin 1.25 mg tablet RxNorm: 336871 2 Tablet(s) PO QD 07/20/2011 0 01/21/2019 Inactive Premarin 1.25 mg tablet RxNorm: 698091 1-2 Tablet(s) PO QD 07/20/20 11 12/16/2011 Inactive Premarin 1.25 mg Tab RxNorm: 862657 1-2 Tablet(s) PO QD 07/06/2011 Inactive alprazolam 0.5 mg Tab RxNorm: 948615 1 Tablet(s) PO BID 06/22/2011 Inactive prn alprazolam 0.5 mg Tab RxNorm: 498632 1 Tablet(s) PO BID 06/22/2011 Inactive prn Premarin 1.25 mg Tab RxNorm: 355455 1 Tablet(s) PO QD m ay do 90 day fill if desired 06/22/2011 07/05/2011 Inactive hydrocodone-acetaminophen 10 mg-325 mg Tab RxNorm: 8237934 1-2 T ablet(s) PO TID 06/22/2011 No Stop Date Active as needed for pain - Previous quantity #240, will start dosing for #180 in April 2011 per Doctor Td. clonidine 0.2 mg Tab RxNorm: 338516 1 Tablet(s) PO TID 05/25/201103/2011 Inactive triamterene-hydrochlorothiazide 75 mg-50 mg Tab RxNorm: 3108 18 1 Tablet(s) PO QD 05/25/2011 09/13/2011 Inactive alprazolam 0.5 mg Tab RxNorm: 233155 1 Tablet(s) PO BID 05/25/2011 Inactive prn hydrocodone-acetaminophen 10 mg-325 mg Tab RxNorm: 9197329 1-2 T ablet(s) PO TID 05/25/2011 No Stop Date Active as needed for pain - Previous quantity #240, will start dosing for #180 in April 2011 per Doctor Td. Robaxin-750 750 mg Tab RxNorm: 499957 2 Tablet(s) PO QHS 05/22/2011 1 Inactive prn spasm hydrocodone-acetaminophen 10 mg-325 mg Tab RxNorm: 5221471 1-2 T ablet(s) PO TID 04/26/2011 No Stop Date Active as needed for pain - Previous quantity #240, will start dosing for #180 in April 2011 per Doctor Td. alprazolam 0.5 mg Tab RxNorm: 211754 1 Tablet(s) PO BID 04/25/2011 Inactive prn Klor-Con 8 mEq Tab RxNorm: 457808 1 Tablet(s) PO QD 03/30/20112010 Inactive Klor-Con 8 mEq Tab RxNorm: 859907 1 Tablet(s) PO QD 03/29/20112010 Inactive hydrocodone-acetaminophen 10 mg-325 mg Tab RxNorm: 0869054 1-2 T ablet(s) PO TID 03/20/2011 04/25/2011 Inactive as needed for pain - Previous quantity #240, will start dosing for #180 in April 2011 per Doctor Td. alprazolam 0.5 mg Tab RxNorm: 242400 1 Tablet(s) PO BID prn 011 03/30/2011 Inactive Ambien 10 mg Tab RxNorm: 410563 1 Tablet(s) PO QHS 03/01/2011 011 Inactive cyclobenzaprine 10 mg Tab RxNorm: 847067 1 Tablet(s) PO TID 011 03/18/2012 Inactive cyclobenzaprine 10 mg Tab RxNorm: 073061 1 Tablet(s) PO TID 011 01/08/2011 Inactive cyclobenzaprine 10 mg Tab RxNorm: 204534 1 Tablet(s) PO TID 011 12/20/2010 Inactive terbinafine 250 mg Tab RxNorm: 286609 1 Tablet(s) PO QD 12/12/2010 Inactive triamterene-hydrochlorothiazide 75 mg-50 mg Tab RxNorm: 3108 18 1 Tablet(s) PO QD 12/07/2010 06/04/2011 Inactive Klor-Con 8 8 mEq Tab RxNorm: 259372 1 Tablet(s) PO QD 12/07/201001/08 Inactive Premarin 1.25 mg Tab RxNorm: 814663 2 Tablet(s) PO QD 12/07/201001/08 Inactive clonidine 0.2 mg Tab RxNorm: 605873 1 Tablet(s) PO TID 12/07/2010 Inactive hydrocodone-acetaminophen 7.5 mg-650 mg Tab RxNorm: 402770 1 Ta blet(s) PO Q4H 12/05/2010 01/21/2019 Inactive hydrocodone-acetaminophen 7.5 mg-650 mg Tab RxNorm: 450211 1 Ta blet(s) PO Q4H 10/26/2010 11/14/2010 Inactive hydrocodone-acetaminophen 7.5 mg-650 mg Tab RxNorm: 881866 1 Ta blet(s) PO Q4H 10/13/2010 10/25/2010 Inactive hydrocodone-acetaminophen 7.5 mg-650 mg Tab RxNorm: 855422 1 Ta blet(s) PO Q4H 09/15/2010 09/12/2010 Inactive alprazolam 0.5 mg Tab RxNorm: 525052 1 Tablet(s) PO BID prn 011 09/12/2010 Inactive terbinafine 250 mg Tab RxNorm: 539370 1 Tablet(s) PO QD 09/05/2010 Inactive hydrocodone-acetaminophen 7.5 mg-650 mg Tab RxNorm: 896204 1 Ta blet(s) PO Q4H 08/29/2010 09/17/2010 Inactive alprazolam 0.5 mg Tab RxNorm: 295033 1 Tablet(s) PO BID prn 010 09/27/2010 Inactive alprazolam 0.5 mg Tab RxNorm: 482105 1 Tablet(s) PO BID prn 010 09/06/2010 Inactive Klor-Con 8 mEq Tab RxNorm: 793838 1 Tablet(s) PO QD 08/08/20102010 Inactive hydrocodone-acetaminophen 7.5 mg-650 mg Tab RxNorm: 331070 1 Ta blet(s) PO Q4H 08/08/2010 08/27/2010 Inactive Ambien 10 mg Tab RxNorm: 073961 1 Tablet(s) PO QHS 08/08/2010 010 Inactive clonidine 0.2 mg Tab RxNorm: 058134 1 Tablet(s) PO TID 08/08/2010 Inactive Premarin 1.25 mg Tab RxNorm: 318619 2 Tablet(s) PO QD 08/08/201009/12 Inactive Ambien 10 mg Tab RxNorm: 645365 1 Tablet(s) PO QHS 07/18/2010 Inactive alprazolam 0.5 mg Tab RxNorm: 877354 1 Tablet(s) PO BID prn 010 08/07/2010 Inactive hydrocodone-acetaminophen 7.5 mg-650 mg Tab RxNorm: 645336 1 Ta blet(s) PO Q4H 07/12/2010 07/31/2010 Inactive clonidine 0.2 mg Tab RxNorm: 949307 1 Tablet(s) PO TID 06/20/2010 Inactive terbinafine 250 mg Tab RxNorm: 397321 1 Tablet(s) PO QD 05/24/2010 Inactive Clonidine 0.2 mg Tab RxNorm: 793439 1 Tablet(s) PO TID 05/24/201006/2010 Inactive Ambien 10 mg Tab RxNorm: 861120 1 Tablet(s) PO QHS 05/24/2010 010 Inactive alprazolam 0.5 mg Tab RxNorm: 516233 1 Tablet(s) PO BID 05/24/2010 Inactive Klor-Con 8 mEq Tab RxNorm: 903568 1 Tablet(s) PO QD 05/24/20102009 Inactive alprazolam 0.5 mg Tab RxNorm: 671702 2 Tablet(s) PO QD prn 05/24/20 10 07/17/2010 Inactive triamterene-hydrochlorothiazide 75 mg-50 mg Tab RxNorm: 3108 18 1 Tablet(s) PO QD 05/24/2010 11/19/2010 Inactive Ambien 10 mg Tab RxNorm: 057961 1 Tablet(s) PO QHS 05/23/2010 010 Inactive Alprazolam 0.5 mg Tab RxNorm: 866279 2 Tablet(s) PO QD prn 05/23/20 10 05/23/2010 Inactive Premarin 1.25 mg Tab RxNorm: 089744 2 Tablet(s) PO QD 05/19/201007/12 Inactive Hydrocodone-Acetaminophen 7.5 mg-650 mg Tab RxNorm: 101719 1 Ta blet(s) PO Q4H 05/19/2010 03/20/2011 Inactive Prednisone 20 mg Tab RxNorm: 846432 1 Tablet(s) PO BID 05/17/2010 Inactive Prednisone 20 mg Tab RxNorm: 785752 1 Tablet(s) PO BID 05/06/201001/2010 Inactive Premarin 1.25 mg Tab RxNorm: 569039 Tablet(s) PO 2 M-W-F, and 1 Tz-Hw-Kip-Sun 05/05/2010 08/02/2010 Inactive Premarin 1.25 mg Tab RxNorm: 173940 Tablet(s) PO 2 M-W-F, and 1 Sd-Fq-Rzb-Sun 05/04/2010 05/04/2010 Inactive Premarin 1.25 mg Tab RxNorm: 809569 Tablet(s) PO 2 M-W-F, and 1 Fr-Bk-KleSun 05/04/2010 05/03/2010 Inactive Prednisone 20 mg Tab RxNorm: 700481 1 Tablet(s) PO BID 04/27/2010 Inactive Alprazolam 0.5 mg Tab RxNorm: 829295 2 Tablet(s) PO QD prn 04/26/20 10 05/22/2010 Inactive Clindamycin 300 mg Cap RxNorm: 382509 2 Capsule(s) PO TID 04/05/2010 04/18/2010 Inactive Terbinafine 250 mg Tab RxNorm: 996291 1 Tablet(s) PO QD 04/04/2010 Inactive Hydrocodone-Acetaminophen 7.5 mg-650 mg Tab RxNorm: 753254 1 Ta blet(s) PO Q4H 03/30/2010 04/18/2010 Inactive Avelox 400 mg Tab RxNorm: 723503 1 Tablet(s) PO QD 03/09/2010 010 Inactive Hydrocodone-Acetaminophen 7.5 mg-650 mg Tab RxNorm: 792170 1 Ta blet(s) PO Q4H 03/08/2010 03/27/2010 Inactive Alprazolam 0.5 mg Tab RxNorm: 289061 2 Tablet(s) PO QD prn 03/08/20 10 04/25/2010 Inactive Klor-Con 8 mEq Tab RxNorm: 365306 1 Tablet(s) PO QD when takes lasi x 03/07/2010 09/29/2019 Inactive Premarin 1.25 mg Tab RxNorm: 841352 1 Tablet(s) PO QD 03/03/201003/11 Inactive Alprazolam 0.5 mg Tab RxNorm: 951114 1 Tablet(s) PO BID PRN 010 No Stop Date Active triamterene-hydrochlorothiazide 75 mg-50 mg Tab RxNorm: 3108 18 1 Tablet(s) PO QD 02/09/2010 02/03/2011 Inactive Hydrocodone-Acetaminophen 10 mg-750 mg Tab RxNorm: 814624 1 Tablet(s) PO Q4H PRN 02/09/2010 03/20/2011 Inactive Clonidine 0.2 mg Tab RxNorm: 323930 1 Tablet(s) PO TID 01/13/201009/2009 Inactive Alprazolam 0.5 mg Tab RxNorm: 448013 1 Tablet(s) PO BID PRN 010 01/12/2010 Inactive Hydrocodone-Acetaminophen 10 mg-750 mg Tab RxNorm: 270680 1 Tablet(s) PO Q4H PRN 01/13/2010 01/12/2010 Inactive ANGELIQ 1 mg-0.5 mg Tab RxNorm: 4439370 1 Tablet(s) PO QD 12/27/2009 01/23/2010 Inactive Lasix 40 mg Tab RxNorm: 501347 1 Tablet(s) PO QAM 12/14/2009 06/11/20 10 Inactive Vitamin B12 1000mcg Tablet RxNorm: 1 Tablet(s) PO QD No Start Date Active cyclobenzaprine 10 mg tablet RxNorm: 412940 1 Tablet(s) PO TID as needed DO NOT USE WITH BACLOFEN No Start Date Active Vitamin D 5,000 unit Tab RxNorm: 1 Tablet(s) PO QD No Start Date Active vitamin E (dl, acetate) 400 unit Cap RxNorm: 311828 1 Capsule(s ) PO QD No Start Date Active Benadryl 25 mg Cap RxNorm: 0509361 Capsule(s) PO PRN No Start Date Inactive amitriptyline 100 mg tablet RxNorm: 663949 1 Tablet(s) PO QHS No St art Date 11/27/2016 Inactive Zithromax Z-Dustin 250 mg tablet RxNorm: 851078 Tablet(s) PO as di rected No Start Date 07/22/2013 Inactive Klor-Con 8 mEq tablet,extended release RxNorm: 161251 1 Tablet( s) PO BID No Start Date 07/28/2012 Inactive scopolamine 1.5 mg 72 hr Transderm Patch RxNorm: 558263 Application TD Q72H for motion sickness No Start Date 05/25/2013 Inactive Klonopin 1 mg tablet RxNorm: 265966 1-2 Tablet(s) PO QHS as nee ded for sleep No Start Date 06/20/2015 Inactive Klor-Con M20 mEq tablet,extended release RxNorm: 176323 2 Tablet(s) PO BID to use with lasix No Start Date 11/11/2013 Inactive Bystolic 5 mg tablet RxNorm: 599562 1 Tablet(s) PO QD No Start Date 1 Inactive Bystolic 10 mg tablet RxNorm: 945634 1 Tablet(s) PO BID No Start Da te 07/06/2015 Inactive Premarin 1.25 mg Tab RxNorm: 881686 Tablet(s) PO 2 --, and 1 Oy-Mt-Xro-Sun No Start Date 05/03/2010 Inactive baclofen 20 mg tablet RxNorm: 277854 1 Tablet(s) PO TID as needed for muscle spasm No Start Date 07/22/2015 Inactive hydrocodone-acetaminophen 7.5 mg-650 mg Tab RxNorm: 712248 1 Tablet(s) PO Q4H as needed for pain No Start Date 03/20/2011 Inactive albuterol sulfate 1.25 mg/3 mL Neb Solution RxNorm: 447996 1 Unit Dose INH Q4H 2boxes No Start Date 09/06/2015 Inactive Butrans 20 mcg/hour Transderm Patch RxNorm: 230769 1 TD WEEKLY apply to skin weekly after removing previous. No Start Date 07/22/2013 Inactive Medrol (Dustin) 4 mg tablets in a dose pack RxNorm: 464111 Tablet(s) PO As Directed No Start Date 07/30/2016 Inactive hydrocodone-acetaminophen 10 mg-325 mg Tab RxNorm: 9546696 1-2 Tablet(s) PO TID as needed for pain No Start Date 03/19/2011 Inactive Klonopin 1 mg tablet RxNorm: 638406 1 Tablet(s) PO QHS No Start Date 02/28/2016 Inactive honey topical RxNorm: topical No Start Date 06/16/2018 Inactive Clonidine 0.2 mg Tab RxNorm: 644879 1 Tablet(s) PO TID No Start Date 01/12/2010 Inactive ketorolac 10 mg tablet RxNorm: 545610 1 Tablet(s) PO Q8H No Start D ate 03/18/2012 Inactive as needed for headache Singulair 10 mg Tab RxNorm: 791034 1 Tablet(s) PO QD No Start Date Inactive Premarin 1.25 mg Tab RxNorm: 572564 1 Tablet(s) PO QD No Start Date 1 Inactive Flonase 50 mcg/Actuation Nasal [place] RxNorm: 4541329 1 [place] CECELIA AL BID No Start Date 03/18/2012 Inactive Terbinafine 250 mg Tab RxNorm: 792972 1 Tablet(s) PO QD No Start Da te 04/03/2010 Inactive Fexofenadine 180 mg Tab RxNorm: 6616949 1 Tablet(s) PO QD No Start Date 09/06/2015 Inactive baclofen 20 mg tablet RxNorm: 776126 1 Tablet(s) PO TID as needed N o Start Date 05/25/2014 Inactive Diovan 160 mg Tab RxNorm: 411726 1 Tablet(s) PO QD No Start Date 09/12 Inactive mupirocin 2 % topical ointment RxNorm: 443757 1 Application TOP QID No Start Date 04/25/2016 Inactive ZOFRAN ODT 4 mg Tab, Rapid Dissolve RxNorm: 891098 1 Tablet(s) PO Q4H No Start Date 03/18/2012 Inactive as needed for nausea and vomiting Alprazolam 0.5 mg Tab RxNorm: 733343 1 Tablet(s) PO BID PRN No Star t Date 01/12/2010 Inactive cyclobenzaprine 10 mg tablet RxNorm: 737439 1 Tablet(s) PO TID as needed for muscle spasm No Start Date 10/08/2017 Inactive Albuterol 0.083% Aerosol Solution RxNorm: 1 Appl ication INH Q4H Use one ampule every 4 hrs with nebulizer as needed for shortness of breath. No Start Date 10/09/2010 Inactive lorazepam 1 mg tablet RxNorm: 517421 1 1/2 Tablet(s) PO QHS No Star t Date 02/02/2016 Inactive Melatonin 3 mg Tab RxNorm: 924853 Tablet(s) PO PRN No Start Date 07/11 Inactive Medrol (Dustin) 4 mg Tabs in a Dose Pack RxNorm: 987827 Tablet(s) PO N o Start Date 11/28/2010 Inactive lorazepam 1 mg tablet RxNorm: 237942 1 Tablet(s) PO QHS as need ed for sleep No Start Date 01/30/2016 Inactive hydrocodone-acetaminophen 10 mg-325 mg Tab RxNorm: 6417078 1-2 Tablet(s) PO QID as needed for severe pain No Start Date 03/24/2012 Inactive celecoxib 200 mg capsule RxNorm: 300349 1 Capsule(s) PO BID No Star t Date 06/26/2019 Inactive amlodipine 5 mg-benazepril 20 mg capsule RxNorm: 600961 1 Capsu le(s) PO QD No Start Date 04/10/2017 Inactive Bystolic 20 mg tablet RxNorm: 505805 1/2 Tablet(s) PO QAM No Start Date 01/23/2016 Inactive Bystolic 20 mg tablet RxNorm: 532149 1 Tablet(s) PO QAM No Start Da te 04/25/2016 Inactive Ambien 10 mg Tab RxNorm: 199622 1 Tablet(s) PO QHS No Start Date 05/11 Inactive Klor-Con 8 mEq Tab RxNorm: 477304 1 Tablet(s) PO QD when takes lasix No Start Date 03/06/2010 Inactive aspirin 81 mg tablet RxNorm: 643928 1 Tablet(s) PO QD No Start Date 0 01/29/2018 Inactive hydrocodone-acetaminophen 10 mg-325 mg Tab RxNorm: 1722756 1-2 T ablet(s) PO QID No Start Date 01/10/2012 Inactive Bystolic 10 mg tablet RxNorm: 460800 1 Tablet(s) PO QAM take one daily in the morning. No Start Date 05/28/2013 Inactive nystatin 100,000 unit/mL Oral Susp RxNorm: 427894 5 Milliliter( s) PO QID No Start Date 03/18/2012 Inactive swish and spit scopolamine 1.5 mg 72 hr Transderm Patch RxNorm: 031241 1 Unit Dose TD Q72H for motion sickness No Start Date 12/23/2013 Inactive Hydrocodone-Acetaminophen 10 mg-750 mg Tab RxNorm: 901593 1 Tablet(s) PO Q4H PRN No Start Date 01/12/2010 Inactive Soma 350 mg tablet RxNorm: 139930 1 Tablet(s) PO TID as needed for spasm No Start Date 01/12/2013 Inactive baclofen 10 mg tablet RxNorm: 603753 1 Tablet(s) PO TID as needed for muscle spasm No Start Date 09/18/2019 Inactive Soma 350 mg Tab RxNorm: 590731 1 Tablet(s) PO TID for spasm No Star t Date 01/31/2012 Inactive Co Q-10 400 mg capsule RxNorm: 424416 1 Capsule(s) PO QD No Start D ate 01/21/2019 Inactive nystatin 100,000 unit/gram topical cream RxNorm: 767192 Applica tion TOP BID No Start Date 03/22/2015 Inactive Exforge 5 mg-160 mg Tab RxNorm: 435895 1 Tablet(s) PO QD No Start D ate 10/09/2010 Inactive Hydrocodone-Acetaminophen 7.5 mg-650 mg Tab RxNorm: 373224 1 Ta blet(s) PO Q4H No Start Date 03/07/2010 Inactive Robaxin-750 750 mg Tab RxNorm: 484701 1-2 Tablet(s) PO TID prn spasm No Start Date 05/21/2011 Inactive amlodipine 5 mg tablet RxNorm: 600738 1 Tablet(s) PO QHS No Start D ate 09/29/2015 Inactive oxycodone-acetaminophen 10 mg-325 mg tablet RxNorm: 7622399 1-2 Tablet(s) PO Q6H No Start Date 06/16/2018 Inactive Triamterene-Hydrochlorothiazide 75 mg-50 mg Tab RxNorm: 3108 18 1 Tablet(s) PO QD No Start Date 02/08/2010 Inactive Alprazolam 0.5 mg Tab RxNorm: 395145 2 Tablet(s) PO QD prn No Start Date 03/07/2010 Inactive Bystolic 20 mg tablet RxNorm: 178556 1 Tablet(s) PO QAM No Start Da te 08/17/2015 Inactive ketorolac 10 mg tablet RxNorm: 993958 1 Tablet(s) PO QID prn he adache No Start Date 07/17/2012 Inactive acyclovir 800 mg Tab RxNorm: 860255 1 Tablet(s) PO BID No Start Date 03/18/2012 Inactive duloxetine 60 mg capsule,delayed release RxNorm: 906002 1 Capsu le(s) PO QD No Start Date 09/29/2015 Inactive Norvasc 5 mg tablet RxNorm: 578736 1 Tablet(s) PO QHS No Start Date 1 10/18/2014 Inactive promethazine 25 mg tablet RxNorm: 710706 1 Tablet(s) PO Q8H use sparingly No Start Date 07/22/2013 Inactive alprazolam 0.5 mg tablet RxNorm: 068360 3 Tablet(s) PO QHS No Start Date 06/06/2015 Inactive Lunesta 3 mg tablet RxNorm: 523081 1 Tablet(s) PO QHS No Start Date 0 09/20/2017 Inactive hydrocodone-acetaminophen 10 mg-325 mg Tab RxNorm: 1288264 1-2 Tablet(s) PO TID as needed for pain No Start Date 12/10/2011 Inactive Coricidin HBP Cough & Cold 4 mg-30 mg Tab RxNorm: 3218713 Tablet (s) PO PRN No Start Date 10/09/2010 Inactive Bactroban 2 % Ointment RxNorm: 836227 Application TOP QID to so res No Start Date 02/22/2012 Inactive Flonase 50 mcg/actuation Nasal [place] RxNorm: 148076 2 [place] QHS No Start Date 03/03/2014 Inactive Medication Administered No Medication Administered data Immunizations Vaccine Codes Date Status Tetanus, Diptheria, Pertussis CVX: 115 02/27/2014 Results Observation Observation Code Item Item Code Result Date S ervice Location COMPREHENS[facility] MET[facility] 12702 AST 15 U/L 2019 Unknown [facility] 23035 ALT 13 U/L 2019 Unknown [facility] 01534 BUN 12 mg/dL 2019 Unknown [facility] 01620 ALBUMIN 3.9 g/dL 2019 Unknown [facility] 23869 CHLORIDE 97 mmol/L 2019 Unknown [facility] 43630 Bili Total 0.4 mg/dL 09/29 Unknown COMPREHENSIVE METABOLIC 78221 ALK PHOS 130 U/L 2019 Unknown [facility] 98909 SODIUM 136 mmol/L 09/29 Unknown COMPREHENS[facility] MET[facility]OLIC 72865 CREATININE 0.92 mg/dL 09/11 Unknown [facility] 12117 CALCIUM 9.1 mg/dL 2019 Unknown [facility] 87759 POTASSIUM 4.4 mmol/L 09/29 Unknown [facility] METABOL[facility] 64115 Total Protein 6.2 g/dL Unknown [facility] 43929 Glucose 391 mg/dL 2019 Unknown [facility] 86015 Bicarbonate 30 mmol/L 09/11 Unknown COMPREHENSIVE METABOLIC 73804 AGAP 9 mmol/L 2019 Unknown MEAN GLUC 6819203 Calc Mean Gluc 332 mg/dL 09/29/2019 Unkn own COMPLETE BLOOD COUNT [id number] WBC 7.0 10e9/L 09/29/19 Unknown COMPLETE BLOOD COUNT [id number] RBC 4.69 10e12/L 2019 Unknown COMPLETE BLOOD COUNT 1692106 HEMOGLOBIN 14.6 g/dL 09/29/19 Unknown COMPLETE BLOOD COUNT 1685810 HEMATOCRIT 45.2 % 09/29/19 Unknown COMPLETE BLOOD COUNT 1672347 MCV 96.4 fL 0 Unknown COMPLETE BLOOD COUNT 5308266 MCH 31.1 pg 0 Unknown COMPLETE BLOOD COUNT 2295332 MCHC 32.3 g/dL 0 Unknown COMPLETE BLOOD COUNT 6484137 PLATELET COUNT 209 10e9/L Unknown COMPLETE BLOOD COUNT 1118911 Mean Plt Volume 9.8 fL Unknown COMPLETE BLOOD COUNT 1600449 Neut Auto 48.1 % 0 Unknown COMPLETE BLOOD COUNT 4810185 Lymph Auto 36.5 % 09/29/19 Unknown COMPLETE BLOOD COUNT 6319517 [place] Auto 8.6 % 0 Unknown COMPLETE BLOOD COUNT 6811804 RDW 13.4 % 0 Unknown COMPLETE BLOOD COUNT 7037431 Eos Auto 6.5 % 0 Unknown COMPLETE BLOOD COUNT 8433048 Baso Auto 0.3 % 0 Unknown COMPLETE BLOOD COUNT 8684706 Neutrophil Abs 3.37 10e9/L Unknown COMPLETE BLOOD COUNT 5531197 Lymphocyte Abs 2.56 10e9/L Unknown COMPLETE BLOOD COUNT 9887812 Monocyte Abs 0.60 10e9/L 09/11 Unknown COMPLETE BLOOD COUNT 2160017 Eosinophil Abs 0.46 10e9/L Unknown COMPLETE BLOOD COUNT 0845556 RDW-SD 45.9 fL 0 Unknown COMPLETE BLOOD COUNT 7794133 Basophil Abs 0.02 10e9/L 09/11 Unknown LIPID [facility] 03274 Cholesterol 248 mg/dL 09/29/2019 Unkno wn LIPID GROUP 98064 Triglyceride 898 mg/dL 09/29/2019 Unkn own LIPID GROUP 27338 HDL CHOLESTEROL 41 mg/dL 09/29/2019 U nknown LIPID GROUP 72175 Chol/HDL Ratio 6.05 ratio 09/29/2019 U nknown LIPID GROUP 86690 NON-HDL Chol 207 mg/dL 09/29/2019 Unkn own LIPID GROUP 15794 LDL Cholesterol N/A Trig >400 020 Unknown GLYCOSYLATED HEMOGLOBIN TEST 34390 Hgb A1c 95366-4 13.2 % 0 09/29/2019 Unknown FREE T4 78890 T4 Free 0.75 ng/dL 09/29/2019 Unknown GFR CALC 5401268 GFR Non Afr Amr >60 mL/min 09/29/2019 Un known GFR CALC 5940010 GFR Afr Amr >60 mL/min 09/29/2019 Unknow n THYROID STIMULATING HORMONE 88149 TSH 4.245 uIU/mL 09/29/2019 Unknown COMPLETE BLOOD COUNT 3380406 WBC 10.7 10e9/L 018 Unknown COMPLETE BLOOD COUNT 3036807 RBC 4.59 10e12/L 2017 Unknown COMPLETE BLOOD COUNT 2371337 HEMOGLOBIN 14.8 g/dL 12/11/19 18 Unknown COMPLETE BLOOD COUNT 1977221 HEMATOCRIT 44.9 % 12/11/19 18 Unknown COMPLETE BLOOD COUNT 6512324 MCV 97.8 fL 8 Unknown COMPLETE BLOOD COUNT 9502336 MCH 32.2 pg 8 Unknown COMPLETE BLOOD COUNT 8874008 MCHC 33.0 g/dL 8 Unknown COMPLETE BLOOD COUNT 9914658 PLATELET COUNT 261 10e9/L 10/2017 Unknown COMPLETE BLOOD COUNT 2273887 Mean Plt Volume 9.5 fL 10/2017 Unknown COMPLETE BLOOD COUNT 0547387 Neut Auto 59.9 % 8 Unknown COMPLETE BLOOD COUNT 5271073 Lymph Auto 27.4 % 12/11/19 18 Unknown COMPLETE BLOOD COUNT 6025842 [place] Auto 8.2 % 8 Unknown COMPLETE BLOOD COUNT 6199348 RDW 13.3 % 8 Unknown COMPLETE BLOOD COUNT 4082374 Eos Auto 4.1 % 8 Unknown COMPLETE BLOOD COUNT 1023267 Baso Auto 0.4 % 8 Unknown COMPLETE BLOOD COUNT 5859449 Neutrophil Abs 6.41 10e9/L Unknown COMPLETE BLOOD COUNT 7416000 Lymphocyte Abs 2.93 10e9/L Unknown COMPLETE BLOOD COUNT 7775404 Monocyte Abs 0.88 10e9/L 10/2017 Unknown COMPLETE BLOOD COUNT 6557298 Eosinophil Abs 0.44 10e9/L Unknown COMPLETE BLOOD COUNT 7291019 RDW-SD 46.2 fL 8 Unknown COMPLETE BLOOD COUNT [id number] Basophil Abs 0.04 10e9/L 10/2017 Unknown THYROID STIMULATING HORMONE 51136 TSH 4.015 uIU/mL 12/10/2017 Unknown COMPREHENSIVE METABOLIC 77713 AST 25 U/L 2017 Unknown COMPREHENSIVE METABOLIC 82612 ALT 17 U/L 2017 Unknown COMPREHENSIVE METABOLIC 42245 BUN 19 mg/dL 2017 Unknown COMPREHENSIVE METABOLIC 37074 ALBUMIN 4.0 g/dL 2017 Unknown COMPREHENSIVE METABOLIC 31870 CHLORIDE 91 mmol/L 2017 Unknown COMPREHENSIVE METABOLIC 90960 Bili Total 0.5 mg/dL 12/10 Unknown COMPREHENSIVE METABOLIC 06806 ALK PHOS 75 U/L 2017 Unknown COMPREHENSIVE METABOLIC 41715 SODIUM 136 mmol/L 12/10 Unknown COMPREHENSIVE METABOLIC 54213 CREATININE 1.05 mg/dL 10/2017 Unknown COMPREHENSIVE METABOLIC 14292 CALCIUM 8.9 mg/dL 2017 Unknown COMPREHENSIVE METABOLIC 21434 POTASSIUM 3.4 mmol/L 12/10 Unknown COMPREHENSIVE METABOLIC 18524 Total Protein 6.5 g/dL Unknown COMPREHENSIVE METABOLIC 55565 Glucose 138 mg/dL 2017 Unknown COMPREHENSIVE METABOLIC 74514 Bicarbonate 35 mmol/L 10/2017 Unknown COMPREHENSIVE METABOLIC 11778 AGAP 10 mmol/L 2017 Unknown MEAN GLUC 0560440 Calc Mean Gluc 171 mg/dL 12/10/2017 Unkn own LIPID GROUP 83096 Cholesterol 204 mg/dL 12/10/2017 Unkno wn LIPID GROUP 13756 Triglyceride 411 mg/dL 12/10/2017 Unkn own LIP[facility] GROUP 26467 HDL CHOLESTEROL 50 mg/dL 12/10/2017 U nknown LIPID GROUP 80542 Chol/HDL Ratio 4.08 ratio 12/10/2017 U nknown LIP[facility] GROUP 14331 NON-HDL Chol 154 mg/dL 12/10/2017 Unkn own LIPID GROUP 81749 LDL Cholesterol N/A Trig >400 018 Unknown GLYCOSYLATED HEMOGLOBIN TEST 15596 Hgb A1c 61996-9 7.6 % 0 12/10/2017 Unknown FREE T4 75214 T4 Free 1.40 ng/dL 12/10/2017 Unknown GFR CALC 7916487 GFR Non Afr Amr 55 mL/min 12/10/2017 Unk nown GFR CALC 1641685 GFR Afr Amr >60 mL/min 12/10/2017 Unknow n GFR CALC 8662263 GFR Non Afr Amr 48 mL/min 06/28/2017 Unk nown GFR CALC 6328668 GFR Afr Amr 59 mL/min 06/28/2017 Unknown COMPREHENSIVE METABOLIC 72830 AST 32 U/L 2016 Unknown COMPREHENSIVE METABOLIC 94157 ALT 22 U/L 2016 Unknown COMPREHENSIVE METABOLIC 14682 BUN 23 mg/dL 2016 Unknown COMPREHENSIVE METABOLIC 30512 ALBUMIN 4.7 g/dL 2016 Unknown COMPREHENSIVE METABOLIC 76974 CHLORIDE 89 mmol/L 2016 Unknown COMPREHENSIVE METABOLIC 18500 Bili Total 0.5 mg/dL 06/28 Unknown COMPREHENSIVE METABOLIC 65275 ALK PHOS 90 U/L 2016 Unknown COMPREHENSIVE METABOLIC 80034 SODIUM 135 mmol/L 06/28 Unknown COMPREHENSIVE METABOLIC 72734 CREATININE 1.18 mg/dL 06/10 Unknown COMPREHENSIVE METABOLIC 00703 CALCIUM 9.7 mg/dL 2016 Unknown COMPREHENSIVE METABOLIC 61528 POTASSIUM 3.5 mmol/L 06/28 Unknown COMPREHENSIVE METABOLIC 00596 Total Protein 7.7 g/dL Unknown COMPREHENS[facility] METABOLIC 79855 Glucose 129 mg/dL 2016 Unknown COMPREHENSIVE METABOLIC 32193 Bicarbonate 34 mmol/L 06/10 Unknown COMPREHENSIVE METABOLIC 58672 AGAP 12 mmol/L 2016 Unknown [facility] 19247 HDL TEST 64 MG/DL 08/27/2014 Unknown [facility] 44535 TRIG 222 MG/DL 08/27/2014 Unknown [facility] 67049 TEST LDL 209 MG/DL 08/27/2014 Unknown [facility] 23694 CHOL 317 MG/DL 08/27/2014 Unknown [facility] 38569 RCHOL/HDL 4.95 RATIO 08/27/2014 Unknow n LIP[facility] GROUP 15871 NON-HDL CH 253 MG/DL 08/27/2014 Unknow n GFR CALC 9722344 GFR AA >60 ML/MIN 08/27/2014 Unknown GFR CALC 4506836 GFR NON-AA >60 ML/MIN 08/27/2014 Unknown COMPLETE BLOOD COUNT 9546012 WBC 7.0 10e9/L 08/27/20 14 Unknown COMPLETE BLOOD COUNT 4619778 RBC 4.98 10e12/L 2013 Unknown COMPLETE BLOOD COUNT 5278677 HGB 15.6 g/dL 4 Unknown COMPLETE BLOOD COUNT 2630548 HCT DET 46.5 % 4 Unknown COMPLETE BLOOD COUNT 5224909 MCV 93.4 fL 4 Unknown COMPLETE BLOOD COUNT 6154707 MCH 31.3 pg 4 Unknown COMPLETE BLOOD COUNT 2368986 MCHC 33.5 g/dL 4 Unknown COMPLETE BLOOD COUNT 4361695 PLT 309 10e9/L 08/27/20 14 Unknown COMPLETE BLOOD COUNT 0863725 MPV 9.6 fL 4 Unknown COMPLETE BLOOD COUNT 8361009 CADEN % 57.2 % 4 Unknown COMPLETE BLOOD COUNT 8802182 LY % 33.2 % 4 Unknown COMPLETE BLOOD COUNT 4828498 MON % 7.3 % 4 Unknown COMPLETE BLOOD COUNT 1654933 EOS % 2.0 % 4 Unknown COMPLETE BLOOD COUNT 9890961 BASO % 0.3 % 4 Unknown COMPLETE BLOOD COUNT 0598111 RDW 13.7 % 4 Unknown COMPLETE BLOOD COUNT 3299363 ABS CADEN 4.00 10e9/L 014 Unknown COMPLETE BLOOD COUNT 0331912 ABS LYMPH 2.32 10e9/L 014 Unknown COMPLETE BLOOD COUNT 8643224 ABS MONO 0.51 10e9/L 014 Unknown COMPLETE BLOOD COUNT 7948092 ABS EOS 0.14 10e9/L 014 Unknown COMPLETE BLOOD COUNT 7498491 ABS BASO 0.02 10e9/L 014 Unknown COMPLETE BLOOD COUNT 9310711 RDW-SD 45.1 fL 4 Unknown COMPREHENSIVE METABOLIC 12702 AST 13 U/L 2013 Unknown COMPREHENSIVE METABOLIC 95544 ALT 11 IU/L 2013 Unknown COMPREHENSIVE METABOLIC 98479 BUN 23 MG/DL 2013 Unknown COMPREHENSIVE METABOLIC 90586 ALBUMIN 4.4 GM/DL 2013 Unknown COMPREHENSIVE METABOLIC 87528 CHLORIDE 99 MMOL/L 2013 Unknown COMPREHENSIVE METABOLIC 64053 BILI TOT 0.5 MG/DL 2013 Unknown COMPREHENSIVE METABOLIC 36868 ALK PHOS 56 U/L 2013 Unknown COMPREHENSIVE METABOLIC 84903 SODIUM 138 MMOL/L 08/27 Unknown COMPREHENSIVE METABOLIC 91633 CREATININE 0.95 MG/DL 08/10 Unknown COMPREHENSIVE METABOLIC 61457 CALCIUM 9.8 MG/DL 2013 Unknown COMPREHENSIVE METABOLIC 22032 POTASSIUM 3.5 MMOL/L 08/27 Unknown COMPREHENSIVE METABOLIC 47243 PROT TOT 6.8 GM/DL 2013 Unknown COMPREHENSIVE METABOLIC 02734 Glucose 90 MG/DL 2013 Unknown COMPREHENSIVE METABOLIC 91999 BICARB 34 MMOL/L 2013 Unknown COMPREHENSIVE METABOLIC 82532 ANION GAP 5 MEQ/L 2013 Unknown LIPASE 82420 LIPASE 11 IU/L 07/21/2014 Unknown AMYLASE 52044 AMYLASE 39 IU/L 07/21/2014 Unknown HEMOGLOBIN A1C (GLYCOSYLATED) 9059597 A1C HPLC 34660-4 6.2 % 03/05/2013 Unknown THYROID STIMULATING HORMONE 44065 TSH 6.986 uIU/ML 03/05/2013 Unknown COMPLETE BLOOD COUNT 9211097 WBC 12.7 10e9/L 013 Unknown COMPLETE BLOOD COUNT 2883919 RBC 4.53 10e12/L 2012 Unknown COMPLETE BLOOD COUNT 2174252 HGB 14.7 g/dL 3 Unknown COMPLETE BLOOD COUNT 8610777 HCT DET 43.1 % 3 Unknown COMPLETE BLOOD COUNT 4509028 MCV 95.1 fL 3 Unknown COMPLETE BLOOD COUNT 0683796 MCH 32.5 pg 3 Unknown COMPLETE BLOOD COUNT 3596836 MCHC 34.1 g/dL 3 Unknown COMPLETE BLOOD COUNT 3512092 PLT 346 10e9/L 03/05/20 13 Unknown COMPLETE BLOOD COUNT 1608338 MPV 9.5 fL 3 Unknown COMPLETE BLOOD COUNT 8941440 CADEN % 67.6 % 3 Unknown COMPLETE BLOOD COUNT 5444453 LY % 22.1 % 3 Unknown COMPLETE BLOOD COUNT 2465538 MON % 6.6 % 3 Unknown COMPLETE BLOOD COUNT 2307762 EOS % 3.3 % 3 Unknown COMPLETE BLOOD COUNT 6193929 BASO % 0.4 % 3 Unknown COMPLETE BLOOD COUNT 0053126 RDW 14.0 % 3 Unknown COMPLETE BLOOD COUNT 3892299 ABS CADEN 8.59 10e9/L 013 Unknown COMPLETE BLOOD COUNT 8119839 ABS LYMPH 2.81 10e9/L 013 Unknown COMPLETE BLOOD COUNT 6633694 ABS MONO 0.84 10e9/L 013 Unknown COMPLETE BLOOD COUNT 7381218 ABS EOS 0.42 10e9/L 013 Unknown COMPLETE BLOOD COUNT 7430438 ABS BASO 0.05 10e9/L 013 Unknown COMPLETE BLOOD COUNT 5413783 RDW-SD 46.0 fL 3 Unknown FREE T4 11745 FREE T4 1.14 NG/DL 03/05/2013 Unknown COMPREHENSIVE METABOLIC 66092 AST 17 U/L 2012 Unknown COMPREHENSIVE METABOLIC 50372 ALT 12 IU/L 2012 Unknown COMPREHENSIVE METABOLIC 31365 BUN 24 MG/DL 2012 Unknown COMPREHENSIVE METABOLIC 76989 ALBUMIN 4.2 GM/DL 2012 Unknown COMPREHENSIVE METABOLIC 94654 CHLORIDE 93 MMOL/L 2012 Unknown COMPREHENSIVE METABOLIC 59857 BILI TOT 0.5 MG/DL 2012 Unknown COMPREHENSIVE METABOLIC 69880 ALK PHOS 75 U/L 2012 Unknown COMPREHENSIVE METABOLIC 38199 SODIUM 141 MMOL/L 03/05 Unknown COMPREHENSIVE METABOLIC 41607 CREATININE 1.36 MG/DL 02/09 Unknown COMPREHENSIVE METABOLIC 23159 CALCIUM 9.2 MG/DL 2012 Unknown COMPREHENSIVE METABOLIC 85402 POTASSIUM 3.1 MMOL/L 03/05 Unknown COMPREHENSIVE METABOLIC 95208 PROT TOT 6.9 GM/DL 2012 Unknown COMPREHENSIVE METABOLIC 85305 Glucose 123 MG/DL 2012 Unknown COMPREHENSIVE METABOLIC 46687 BICARB 36 MMOL/L 2012 Unknown COMPREHENSIVE METABOLIC 81974 ANION GAP 12 MEQ/L 2012 Unknown GFR CALC 5290905 GFR AA 51.0L ML/MIN 03/05/2013 Unknow n GFR CALC 8464431 GFR NON-AA 42.0L ML/MIN 03/05/2013 Unkno wn COMPREHENSIVE METABOLIC 60873 AST 14 U/L 2012 Unknown COMPREHENSIVE METABOLIC 59780 ALT 11 IU/L 2012 Unknown COMPREHENSIVE METABOLIC 48669 BUN 16 MG/DL 2012 Unknown COMPREHENSIVE METABOLIC 45560 ALBUMIN 4.2 GM/DL 2012 Unknown COMPREHENSIVE METABOLIC 03805 CHLORIDE 98 MMOL/L 2012 Unknown COMPREHENSIVE METABOLIC 03494 BILI TOT 0.4 MG/DL 2012 Unknown COMPREHENSIVE METABOLIC 69171 ALK PHOS 77 U/L 2012 Unknown COMPREHENSIVE METABOLIC 39343 SODIUM 139 MMOL/L 09/25 Unknown COMPREHENSIVE METABOLIC 75396 CREATININE 0.86 MG/DL 09/10 Unknown COMPREHENSIVE METABOLIC 80456 CALCIUM 9.5 MG/DL 2012 Unknown COMPREHENSIVE METABOLIC 38140 POTASSIUM 3.8 MMOL/L 09/25 Unknown COMPREHENSIVE METABOLIC 27635 PROT TOT 6.8 GM/DL 2012 Unknown COMPREHENSIVE METABOLIC 09150 Glucose 91 MG/DL 2012 Unknown COMPREHENSIVE METABOLIC 91082 BICARB 32 MMOL/L 2012 Unknown COMPREHENSIVE METABOLIC 57907 ANION GAP 9 MEQ/L 2012 Unknown FREE T4 20368 FREE T4 0.98 NG/DL 09/25/2012 Unknown THYROID STIMULATING HORMONE 94285 TSH 1.736 uIU/ML 09/25/2012 Unknown C-REACTIVE PROTEIN (CRP) QUANT 35981 CRP 2.3 MG/DL 09/25/2012 Unknown COMPLETE BLOOD COUNT 3095823 WBC 11.9 10e9/L 013 Unknown COMPLETE BLOOD COUNT 5960228 RBC 4.87 10e12/L 2012 Unknown COMPLETE BLOOD COUNT 7954330 HGB 15.1 g/dL 3 Unknown COMPLETE BLOOD COUNT 3053750 HCT DET 44.8 % 3 Unknown COMPLETE BLOOD COUNT 0942561 MCV 92.0 fL 3 Unknown COMPLETE BLOOD COUNT 3419049 MCH 31.0 pg 3 Unknown COMPLETE BLOOD COUNT 5675904 MCHC 33.7 g/dL 3 Unknown COMPLETE BLOOD COUNT 1453807 PLT 343 10e9/L 09/25/19 13 Unknown COMPLETE BLOOD COUNT 3822698 MPV 9.0 fL 3 Unknown COMPLETE BLOOD COUNT 3446485 CADEN % 68.2 % 3 Unknown COMPLETE BLOOD COUNT 7993726 LY % 22.4 % 3 Unknown COMPLETE BLOOD COUNT 4079324 MON % 6.4 % 3 Unknown COMPLETE BLOOD COUNT 0139184 EOS % 2.7 % 3 Unknown COMPLETE BLOOD COUNT 8531093 BASO % 0.3 % 3 Unknown COMPLETE BLOOD COUNT 3052122 RDW 13.8 % 3 Unknown COMPLETE BLOOD COUNT 9834487 ABS CADEN 8.12 10e9/L 013 Unknown COMPLETE BLOOD COUNT 5109616 ABS LYMPH 2.67 10e9/L 013 Unknown COMPLETE BLOOD COUNT 9648002 ABS MONO 0.76 10e9/L 013 Unknown COMPLETE BLOOD COUNT 9753635 ABS EOS 0.32 10e9/L 013 Unknown COMPLETE BLOOD COUNT 9990226 ABS BASO 0.04 10e9/L 013 Unknown COMPLETE BLOOD COUNT 9368932 RDW-SD 45.6 fL 3 Unknown GFR CALC 9439229 GFR AA >60 ML/MIN 09/25/2012 Unknown GFR CALC 9819092 GFR NON-AA >60 ML/MIN 09/25/2012 Unknown ERYTHROCYTE SEDIMENTATION RATE 51649 ESR 19 MM/HR 05/06/2012 Unknown VITAMIN B 12 FOLIC ACID 39417|00710 VIT B 12 922 PG/ML 04/11 Unknown VITAMIN B 12 FOLIC ACID 57784|38130 FOLIC ACID 13.6 NG/ML Unknown URIC ACID 31870 URIC ACID 7.8 MG/DL 05/06/2012 Unknown COMPLETE BLOOD COUNT 03675 WBC 11.9 10e9/L 012 Unknown COMPLETE BLOOD COUNT 33118 RBC 5.30 10e12/L 2011 Unknown COMPLETE BLOOD COUNT 50440 HGB 16.6 g/dL 2 Unknown COMPLETE BLOOD COUNT 41904 HCT DET 47.2 % 2 Unknown COMPLETE BLOOD COUNT 88116 MCV 89.1 fL 2 Unknown COMPLETE BLOOD COUNT 38697 MCH 31.3 pg 2 Unknown COMPLETE BLOOD COUNT 64676 MCHC 35.2 g/dL 2 Unknown COMPLETE BLOOD COUNT 08045 PLT 362 10e9/L 05/06/20 12 Unknown COMPLETE BLOOD COUNT 36252 MPV 9.4 fL 2 Unknown COMPLETE BLOOD COUNT 29865 CADEN % 68.2 % 2 Unknown COMPLETE BLOOD COUNT 37601 LY % 22.0 % 2 Unknown COMPLETE BLOOD COUNT 37863 MON % 6.9 % 2 Unknown COMPLETE BLOOD COUNT 25808 EOS % 2.6 % 2 Unknown COMPLETE BLOOD COUNT 61158 BASO % 0.3 % 2 Unknown COMPLETE BLOOD COUNT 80715 RDW 12.8 % 2 Unknown COMPLETE BLOOD COUNT 19503 ABS CADEN 8.12 10e9/L 012 Unknown COMPLETE BLOOD COUNT 34011 ABS LYMPH 2.62 10e9/L 012 Unknown COMPLETE BLOOD COUNT 76036 ABS MONO 0.82 10e9/L 012 Unknown COMPLETE BLOOD COUNT 58804 ABS EOS 0.31 10e9/L 012 Unknown COMPLETE BLOOD COUNT 30768 ABS BASO 0.04 10e9/L 012 Unknown COMPLETE BLOOD COUNT 58427 RDW-SD 41.5 fL 2 Unknown GFR CALC 8217525 GFR AA >60 ML/MIN 05/06/2012 Unknown GFR CALC 8646166 GFR NON-AA 58.0L ML/MIN 05/06/2012 Unkno wn FREE T4 51592 FREE T4 1.15 NG/DL 05/06/2012 Unknown THYROID STIMULATING HORMONE 33851 TSH 1.568 uIU/ML 05/06/2012 Unknown COMPREHENSIVE METABOLIC 03099 AST 20 U/L 2011 Unknown COMPREHENSIVE METABOLIC 42535 ALT 12 IU/L 2011 Unknown COMPREHENSIVE METABOLIC 66688 BUN 20 MG/DL 2011 Unknown COMPREHENSIVE METABOLIC 28447 ALBUMIN 4.5 GM/DL 2011 Unknown COMPREHENSIVE METABOLIC 61065 CHLORIDE 91 MMOL/L 2011 Unknown COMPREHENSIVE METABOLIC 93111 BILI TOT 0.4 MG/DL 2011 Unknown COMPREHENSIVE METABOLIC 07515 ALK PHOS 73 U/L 2011 Unknown COMPREHENSIVE METABOLIC 60385 SODIUM 139 MMOL/L 05/06 Unknown COMPREHENSIVE METABOLIC 80956 CREATININE 1.02 MG/DL 04/11 Unknown COMPREHENSIVE METABOLIC 40629 CALCIUM 9.7 MG/DL 2011 Unknown COMPREHENSIVE METABOLIC 98605 POTASSIUM 3.1 MMOL/L 05/06 Unknown COMPREHENSIVE METABOLIC 02148 PROT TOT 7.3 GM/DL 2011 Unknown COMPREHENSIVE METABOLIC 47899 Glucose 118 MG/DL 2011 Unknown COMPREHENSIVE METABOLIC 35154 BICARB 33 MMOL/L 2011 Unknown COMPREHENSIVE METABOLIC 47057 ANION GAP 15 MEQ/L 2011 Unknown Procedures Procedure Codes Date ROUTINE VENIPUNCTURE CPT-4: 93468 09/29/2019 URINALYSIS NONAUTO W/O SCOPE CPT-4: 57186 09/29/2019 COMPREHEN METABOLIC PANEL CPT-4: 81470 09/29/2019 LIPID PANEL CPT-4: 81249 09/29/2019 A1C HPLC CPT-4: 52658 09/29/2019 ASSAY OF FREE THYROXINE CPT-4: 62715 09/29/2019 ASSAY THYROID STIM HORMONE CPT-4: 20886 09/29/2019 COMPLETE CBC W/AUTO DIFF WBC CPT-4: 73726 09/29/2019 URINALYSIS NONAUTO W/O SCOPE CPT-4: 30599 09/30/2018 MICROALBUMIN QUANTITATIVE CPT-4: 09305 09/30/2018 CEFTRIAXONE SODIUM INJECTION CPT-4: J0696 06/19/2018 THER/PROPH/DIAG INJ SC/IM CPT-4: 61311 06/19/2018 CEFTRIAXONE SODIUM INJECTION CPT-4: J0696 06/17/2018 THER/PROPH/DIAG INJ SC/IM CPT-4: 48505 06/17/2018 THER/PROPH/DIAG INJ SC/IM CPT-4: 31360 05/16/2018 KETOROLAC TROMETHAMINE INJ CPT-4: J1885 05/16/2018 ONDANSETRON HCL INJECTION CPT-4: J2405 05/16/2018 THER/PROPH/DIAG INJ SC/IM CPT-4: 39733 05/16/2018 ROUTINE VENIPUNCTURE CPT-4: 08179 03/20/2018 COMPREHEN METABOLIC PANEL CPT-4: 65565 03/20/2018 DEXAMETHASONE SODIUM PHOS CPT-4: J1100 02/11/2018 THER/PROPH/DIAG INJ SC/IM CPT-4: 86943 02/11/2018 TRIAMCINOLONE ACET INJ NOS CPT-4: J3301 02/11/2018 CEFTRIAXONE SODIUM INJECTION CPT-4: J0696 02/01/2018 THER/PROPH/DIAG INJ SC/IM CPT-4: 15740 02/01/2018 CEFTRIAXONE SODIUM INJECTION CPT-4: J0696 01/30/2018 THER/PROPH/DIAG INJ SC/IM CPT-4: 17916 01/30/2018 ROUTINE VENIPUNCTURE CPT-4: 75533 12/10/2017 ASSAY OF FREE THYROXINE CPT-4: 67103 12/10/2017 ASSAY THYROID STIM HORMONE CPT-4: 68556 12/10/2017 COMPREHEN METABOLIC PANEL CPT-4: 17971 12/10/2017 COMPLETE CBC W/AUTO DIFF WBC CPT-4: 01546 12/10/2017 LIPID PANEL CPT-4: 19815 12/10/2017 A1C HPLC CPT-4: 95571 12/10/2017 CEFTRIAXONE SODIUM INJECTION CPT-4: J0696 12/10/2017 THER/PROPH/DIAG INJ SC/IM CPT-4: 03598 12/10/2017 CEFTRIAXONE SODIUM INJECTION CPT-4: J0696 12/07/2017 THER/PROPH/DIAG INJ SC/IM CPT-4: 90357 12/07/2017 DEXAMETHASONE SODIUM PHOS CPT-4: J1100 12/07/2017 THER/PROPH/DIAG INJ SC/IM CPT-4: 73591 12/07/2017 CEFTRIAXONE SODIUM INJECTION CPT-4: J0696 10/08/2017 THER/PROPH/DIAG INJ SC/IM CPT-4: 77205 10/08/2017 CEFTRIAXONE SODIUM INJECTION CPT-4: J0696 09/21/2017 THER/PROPH/DIAG INJ SC/IM CPT-4: 21674 09/21/2017 CEFTRIAXONE SODIUM INJECTION CPT-4: J0696 09/20/2017 THER/PROPH/DIAG INJ SC/IM CPT-4: 56085 09/20/2017 REMOVAL OF NAIL PLATE CPT-4: 37050 08/29/2017 THER/PROPH/DIAG INJ SC/IM CPT-4: 52519 08/29/2017 TRIAMCINOLONE ACET INJ NOS CPT-4: J3301 08/29/2017 CEFTRIAXONE SODIUM INJECTION CPT-4: J0696 08/29/2017 THER/PROPH/DIAG INJ SC/IM CPT-4: 19642 08/29/2017 DESTRUCT PREMALG LESION (Cryosurgery) CPT-4: 37419 ROUTINE VENIPUNCTURE CPT-4: 44618 06/27/2017 ASSAY OF FREE THYROXINE CPT-4: 14279 06/27/2017 ASSAY THYROID STIM HORMONE CPT-4: 51800 06/27/2017 COMPREHEN METABOLIC PANEL CPT-4: 49726 06/27/2017 COMPLETE CBC W/AUTO DIFF WBC CPT-4: 12748 06/27/2017 EXC TR-EXT B9+REECE 0.5 CM< CPT-4: 16071 01/24/2017 THER/PROPH/DIAG INJ SC/IM CPT-4: 51125 08/02/2016 DEXAMETHASONE SODIUM PHOS CPT-4: J1100 08/02/2016 DESTRUCT PREMALG LESION (Cryosurgery) CPT-4: 05090 EXC TR-EXT B9+REECE 0.5 CM< CPT-4: 89873 08/01/2016 AEROBIC WOUND CULTURE & STN CPT-4: 17075 07/06/2016 CEFTRIAXONE SODIUM INJECTION CPT-4: J0696 05/25/2016 THER/PROPH/DIAG INJ SC/IM CPT-4: 67358 05/25/2016 THER/PROPH/DIAG INJ SC/IM CPT-4: 96908 04/26/2016 DEXAMETHASONE SODIUM PHOS CPT-4: J1100 04/26/2016 CEFTRIAXONE SODIUM INJECTION CPT-4: J0696 04/26/2016 THER/PROPH/DIAG INJ SC/IM CPT-4: 07506 04/26/2016 THER/PROPH/DIAG INJ SC/IM CPT-4: 53332 02/09/2016 TRIAMCINOLONE ACET INJ NOS CPT-4: J3301 02/09/2016 URINALYSIS NONAUTO W/O SCOPE CPT-4: 81486 01/24/2016 URINE CULTURE/ COLONY COUNT CPT-4: 99684 01/24/2016 THER/PROPH/DIAG INJ SC/IM CPT-4: 86911 12/08/2015 TRIAMCINOLONE ACET INJ NOS CPT-4: J3301 12/08/2015 THER/PROPH/DIAG INJ SC/IM CPT-4: 18954 10/07/2015 TRIAMCINOLONE ACET INJ NOS CPT-4: J3301 10/07/2015 DESTRUCT PREMALG LESION (Cryosurgery) CPT-4: 40318 THER/PROPH/DIAG INJ SC/IM CPT-4: 13478 03/16/2015 METHYLPREDNISOLONE 40 MG INJ CPT-4: J1030 03/16/2015 DESTRUCT PREMALG LESION (Cryosurgery) CPT-4: 95034 THER/PROPH/DIAG INJ SC/IM CPT-4: 88072 09/11/2014 METHYLPREDNISOLONE 40 MG INJ CPT-4: J1030 09/11/2014 TRIAMCINOLONE ACET INJ NOS CPT-4: J3301 09/11/2014 CEFTRIAXONE SODIUM INJECTION CPT-4: J0696 09/11/2014 THER/PROPH/DIAG INJ SC/IM CPT-4: 37611 09/11/2014 ROUTINE VENIPUNCTURE CPT-4: 02243 08/27/2014 COMPREHEN METABOLIC PANEL CPT-4: 84857 08/27/2014 COMPLETE CBC W/AUTO DIFF WBC CPT-4: 44529 08/27/2014 LIPID PANEL CPT-4: 92538 08/27/2014 ROUTINE VENIPUNCTURE CPT-4: 52165 07/21/2014 ASSAY OF AMYLASE CPT-4: 15991 07/21/2014 ASSAY OF LIPASE CPT-4: 16993 07/21/2014 THER/PROPH/DIAG INJ SC/IM CPT-4: 66225 07/15/2014 TRIAMCINOLONE ACET INJ NOS CPT-4: J3301 07/15/2014 ROUTINE VENIPUNCTURE CPT-4: 88843 05/14/2014 ASSAY OF FREE THYROXINE CPT-4: 91158 05/14/2014 ASSAY THYROID STIM HORMONE CPT-4: 47432 05/14/2014 COMPREHEN METABOLIC PANEL CPT-4: 93204 05/14/2014 COMPLETE CBC W/AUTO DIFF WBC CPT-4: 85196 05/14/2014 LIPID PANEL CPT-4: 57823 05/14/2014 CEFTRIAXONE SODIUM INJECTION CPT-4: J0696 04/21/2014 THER/PROPH/DIAG INJ SC/IM CPT-4: 91469 04/21/2014 THER/PROPH/DIAG INJ SC/IM CPT-4: 46275 04/21/2014 TRIAMCINOLONE ACET INJ NOS CPT-4: J3301 04/21/2014 THER/PROPH/DIAG INJ SC/IM CPT-4: 22416 03/04/2014 METHYLPREDNISOLONE 40 MG INJ CPT-4: J1030 03/04/2014 TRIAMCINOLONE ACET INJ NOS CPT-4: J3301 03/04/2014 CEFTRIAXONE SODIUM INJECTION CPT-4: J0696 03/04/2014 THER/PROPH/DIAG INJ SC/IM CPT-4: 09971 03/04/2014 TDAP VACCINE 7 YRS/> IM CPT-4: 32580 02/27/2014 IMMUNIZATION ADMIN CPT-4: 32196 02/27/2014 DESTRUCT PREMALG LESION (Cryosurgery) CPT-4: 98487 DESTRUCT PREMALG LES 2-14 CPT-4: 41804 01/13/2014 THER/PROPH/DIAG INJ SC/IM CPT-4: 20097 10/21/2013 METHYLPREDNISOLONE 40 MG INJ CPT-4: J1030 10/21/2013 TRIAMCINOLONE ACET INJ NOS CPT-4: J3301 10/21/2013 CEFTRIAXONE SODIUM INJECTION CPT-4: J0696 08/27/2013 THER/PROPH/DIAG INJ SC/IM CPT-4: 25986 08/27/2013 THER/PROPH/DIAG INJ SC/IM CPT-4: 20647 08/27/2013 METHYLPREDNISOLONE 40 MG INJ CPT-4: J1030 08/27/2013 TRIAMCINOLONE ACET INJ NOS CPT-4: J3301 08/27/2013 THER/PROPH/DIAG INJ SC/IM CPT-4: 64331 06/23/2013 METHYLPREDNISOLONE 40 MG INJ CPT-4: J1030 06/23/2013 TRIAMCINOLONE ACET INJ NOS CPT-4: J3301 06/23/2013 THER/PROPH/DIAG INJ SC/IM CPT-4: 05345 05/26/2013 METHYLPREDNISOLONE 40 MG INJ CPT-4: J1030 05/26/2013 TRIAMCINOLONE ACET INJ NOS CPT-4: J3301 05/26/2013 ROUTINE VENIPUNCTURE CPT-4: 55103 03/05/2013 ASSAY OF FREE THYROXINE CPT-4: 57979 03/05/2013 ASSAY THYROID STIM HORMONE CPT-4: 71992 03/05/2013 COMPREHEN METABOLIC PANEL CPT-4: 35713 03/05/2013 COMPLETE CBC W/AUTO DIFF WBC CPT-4: 54413 03/05/2013 A1C GLYCOSYLATED HEMOGLOBIN TEST CPT-4: 55835 013 DRAIN/INJECT JOINT/BURSA CPT-4: 37228 12/04/2012 METHYLPREDNISOLONE 40 MG INJ CPT-4: J1030 12/04/2012 TRIAMCINOLONE ACET INJ NOS CPT-4: J3301 12/04/2012 CEFTRIAXONE SODIUM INJECTION CPT-4: J0696 11/21/2012 THER/PROPH/DIAG INJ SC/IM CPT-4: 34812 11/21/2012 THER/PROPH/DIAG INJ SC/IM CPT-4: 38117 10/14/2012 METHYLPREDNISOLONE 40 MG INJ CPT-4: J1030 10/14/2012 TRIAMCINOLONE ACET INJ NOS CPT-4: J3301 10/14/2012 URINALYSIS NONAUTO W/O SCOPE CPT-4: 53598 09/27/2012 ROUTINE VENIPUNCTURE CPT-4: 70408 09/25/2012 ASSAY OF FREE THYROXINE CPT-4: 14289 09/25/2012 ASSAY THYROID STIM HORMONE CPT-4: 73101 09/25/2012 COMPREHEN METABOLIC PANEL CPT-4: 01808 09/25/2012 COMPLETE CBC W/AUTO DIFF WBC CPT-4: 70804 09/25/2012 C-REACTIVE PROTEIN CPT-4: 74866 09/25/2012 THER/PROPH/DIAG INJ SC/IM CPT-4: 44758 08/29/2012 METHYLPREDNISOLONE 40 MG INJ CPT-4: J1030 08/29/2012 TRIAMCINOLONE ACET INJ NOS CPT-4: J3301 08/29/2012 DESTRUCT PREMALG LESION (Cryosurgery) CPT-4: 34682 THER/PROPH/DIAG INJ SC/IM CPT-4: 29149 05/06/2012 METHYLPREDNISOLONE 40 MG INJ CPT-4: J1030 05/06/2012 TRIAMCINOLONE ACET INJ NOS CPT-4: J3301 05/06/2012 VITAMIN B 12 FOLIC ACID CPT-4: 18944|91003 05/06/2012 RBC SED RATE AUTOMATED CPT-4: 65659 05/06/2012 ROUTINE VENIPUNCTURE CPT-4: 66697 05/06/2012 ASSAY OF FREE THYROXINE CPT-4: 32414 05/06/2012 ASSAY THYROID STIM HORMONE CPT-4: 72833 05/06/2012 COMPREHEN METABOLIC PANEL CPT-4: 52264 05/06/2012 COMPLETE CBC W/AUTO DIFF WBC CPT-4: 34203 05/06/2012 ASSAY OF BLOOD/URIC ACID CPT-4: 45807 05/06/2012 THER/PROPH/DIAG INJ SC/IM CPT-4: 56433 03/19/2012 KETOROLAC TROMETHAMINE INJ CPT-4: J1885 03/19/2012 KETOROLAC TROMETHAMINE INJ CPT-4: J1885 01/30/2012 THER/PROPH/DIAG INJ SC/IM CPT-4: 36432 01/30/2012 PROMETHAZINE HCL INJECTION CPT-4: J2550 01/30/2012 THER/PROPH/DIAG INJ SC/IM CPT-4: 67723 01/24/2012 METHYLPREDNISOLONE 40 MG INJ CPT-4: J1030 01/24/2012 TRIAMCINOLONE ACET INJ NOS CPT-4: J3301 01/24/2012 THER/PROPH/DIAG INJ SC/IM CPT-4: 14056 09/13/2011 KETOROLAC TROMETHAMINE INJ CPT-4: J1885 09/13/2011 THER/PROPH/DIAG INJ SC/IM CPT-4: 96655 09/13/2011 PROMETHAZINE HCL INJECTION CPT-4: J2550 09/13/2011 CEFTRIAXONE SODIUM INJECTION CPT-4: J0696 07/20/2011 THER/PROPH/DIAG INJ SC/IM CPT-4: 82969 07/20/2011 THER/PROPH/DIAG INJ SC/IM CPT-4: 12411 07/20/2011 METHYLPREDNISOLONE INJECTION CPT-4: J2930 07/20/2011 URINALYSIS NONAUTO W/O SCOPE CPT-4: 27957 05/09/2011 CEFTRIAXONE SODIUM INJECTION CPT-4: J0696 05/09/2011 THER/PROPH/DIAG INJ SC/IM CPT-4: 08618 05/09/2011 THER/PROPH/DIAG INJ SC/IM CPT-4: 20379 05/09/2011 PROMETHAZINE HCL INJECTION CPT-4: J2550 05/09/2011 HYDRATION IV INFUSION INIT CPT-4: 50066 05/09/2011 DESTRUCT PREMALG LESION (Cryosurgery) CPT-4: 67124 DESTRUCT PREMALG LES 2-14 CPT-4: 74376 07/19/2010 REMOVAL OF SKIN TAGS <W/15 CPT-4: 73517 05/30/2010 THER/PROPH/DIAG INJ SC/IM CPT-4: 91913 04/05/2010 CEFTRIAXONE SODIUM INJECTION CPT-4: J0696 04/05/2010 TRIAMCINOLONE ACET INJ NOS CPT-4: J3301 04/05/2010 METHYLPREDNISOLONE 40 MG INJ CPT-4: J1030 04/05/2010 THER/PROPH/DIAG INJ SC/IM CPT-4: 63014 04/05/2010 TRIAMCINOLONE ACET INJ NOS CPT-4: J3301 03/09/2010 METHYLPREDNISOLONE 40 MG INJ CPT-4: J1030 03/09/2010 THER/PROPH/DIAG INJ SC/IM CPT-4: 06812 03/09/2010 THER/PROPH/DIAG INJ SC/IM CPT-4: 89135 03/09/2010 CEFTRIAXONE SODIUM INJECTION CPT-4: J0696 03/09/2010 Vital Signs Date Vital 10/07/2019 Blood Pressure 1: 134/82 Code: 8480-6 Heart Rate 1: 105 bpm Respiratory Rate: 17 bpm SpO2: 96% Temperature: 36.8 (C) / 98.2 (F) We ight: 198 lbs 09/30/2019 Blood Pressure 1: 132/80 Code: 8480-6 BMI: 35.8 Code: 59562-8 Heart Rate 1: 88 bpm Height: 5'4" Respiratory Rate: 20 bpm SpO2: 95% Tempera ture: 36.9 (C) / 98.5 (F) Weight: 210 lbs 05/28/2019 Blood Pressure 1: 126/82 Code: 8480-6 BMI: 35.0 Code: 97827-2 Heart Rate 1: 88 bpm Height: 5'4" [...] 1: 128/90 Code: 8480-6 BMI: 37.2 Code: 70598-1 Heart Rate 1: 84 bpm Height: 5'4" Respiratory Rate: 20 bpm SpO2: 95% Tempera ture: 36.6 (C) / 97.8 (F) Weight: 217 lbs 08/27/2018 Blood Pressure 1: 128/88 Code: 8480-6 BMI: 38.3 Code: 16558-2 Heart Rate 1: 84 bpm Height: 5'4" [...] 1: 119/72 Code: 8480-6 BMI: 37.4 Code: 74834-4 Heart Rate 1: 82 bpm Height: 5'4" Respiratory Rate: 12 bpm SpO2: 94% Tempera ture: 35.2 (C) / 95.4 (F) Weight: 218 lbs 12/18/2017 Blood Pressure 1: 128/86 Code: 8480-6 BMI: 37.8 Code: 43016-7 Heart Rate 1: 84 bpm Height: 5'4" [...] 1: 128/82 Code: 8480-6 BMI: 35.5 Code: 39390-5 Heart Rate 1: 84 bpm Height: 5'4" [...] 1: 128/82 Code: 8480-6 BMI: 30.2 Code: 00785-7 Heart Rate 1: 80 bpm Height: 5'4" [...] 1: 128/86 Code: 8480-6 BMI: 32.8 Code: 39566-6 Heart Rate 1: 66 bpm Height: 5'4" Respiratory Rate: 18 bpm Temperature: 36 .3 (C) / 97.3 (F) Weight: 191 lbs 06/23/2013 Blood Pressure 1: 132/94 Code: 8480-6 BMI: 34.0 Code: 54563-1 Heart Rate 1: 84 bpm Height: 5'4" Respiratory Rate: 20 bpm Temperature: 36 .8 (C) / 98.2 (F) Weight: 198 lbs 05/26/2013 Blood Pressure 1: 114/80 Code: 8480-6 BMI: 35.0 Code: 82421-0 Heart Rate 1: 80 bpm Height: 5'4" Respiratory Rate: 20 bpm Temperature: 36 .4 (C) / 97.6 (F) Weight: 204 lbs 04/16/2013 Blood Pressure 1: 114/82 Code: 8480-6 BMI: 36.7 Code: 09253-1 Heart Rate 1: 84 bpm Height: 5'4" Respiratory Rate: 20 bpm Temperature: 36 .7 (C) / 98.0 (F) Weight: 214 lbs 03/05/2013 Blood Pressure 1: 136/90 Code: 8480-6 BMI: 37.1 Code: 75210-0 Heart Rate 1: 84 bpm Height: 5'4" [...] 1: 168/114 Code: 8480-6 BMI: 36.2 Code: 59632-8 Heart Rate 1: 104 bpm Height: 5'4" Respiratory Rate: 20 bpm Temperature: 36 .8 (C) / 98.2 (F) Weight: 211 lbs 11/22/2012 Blood Pressure 1: 128/90 Code: 8480-6 Heart Rate 1: 88 bpm Respiratory Rate: 20 bpm SpO2: 96% Temperature: 36.8 (C) / 98.2 (F) 11/21/2012 Blood Pressure 1: 146/100 Code: 8480-6 BMI: 35.7 Code: 06343-4 Heart Rate 1: 96 bpm Height: 5'4" [...] 1: 138/100 Code: 8480-6 BMI: 35.7 Code: 86919-8 Heart Rate 1: 96 bpm Height: 5'4" Respiratory Rate: 20 bpm Temperature: 36 .8 (C) / 98.2 (F) Weight: 208 lbs 05/06/2012 Blood Pressure 1: 154/102 Code: 8480-6 BMI: 34.7 Code: 78211-5 Heart Rate 1: 116 bpm Height: 5'4" Respiratory Rate: 20 bpm Temperature: 36 .8 (C) / 98.2 (F) Weight: 202 lbs 04/03/2012 Blood Pressure 1: 134/94 Code: 8480-6 BMI: 34.8 Code: 31110-7 Heart Rate 1: 108 bpm Height: 5'4" Respiratory Rate: 20 bpm Temperature: 36 .8 (C) / 98.2 (F) Weight: 203 lbs 03/19/2012 Blood Pressure 1: 148/106 Code: 8480-6 BMI: 35.0 Code: 60577-5 Heart Rate 1: 100 bpm Height: 5'4" Respiratory Rate: 20 bpm Temperature: 36 .6 (C) / 97.9 (F) Weight: 204 lbs 02/22/2012 Blood Pressure 1: 146/94 Code: 8480-6 He art Rate 1: 88 bpm 02/21/2012 Blood Pressure 1: 172/120 Code: 8480-6 B lood Pressure 2: 152/106 Code: 8480-6 Heart Rate 1: 116 bpm 02/20/2012 Blood Pressure 1: 160/100 Code: 8480-6 BMI: 32.0 Code: 55231-3 Heart Rate 1: 84 bpm Height: 5'7" Temperature: 36.5 (C) / 97.7 (F) Weight: 204 lbs 01/30/2012 Blood Pressure 1: 152/110 Code: 8480-6 BMI: 32.0 Code: 07754-4 Heart Rate 1: 116 bpm Height: 5'7" Respiratory Rate: 20 bpm Temperature: 37 .0 (C) / 98.6 (F) Weight: 204 lbs 01/24/2012 Blood Pressure 1: 146/100 Code: 8480-6 BMI: 32.0 Code: 52273-8 Heart Rate 1: 100 bpm Height: 5'7" Respiratory Rate: 20 bpm Temperature: 36 .7 (C) / 98.0 (F) Weight: 204 lbs 01/10/2012 Blood Pressure 1: 156/94 Code: 8480-6 BMI: 32.6 Code: 71309-7 Heart Rate 1: 72 bpm Height: 5'7" Respiratory Rate: 20 bpm Temperature: 36 .8 (C) / 98.2 (F) Weight: 208 lbs 12/11/2011 Blood Pressure 1: 146/100 Code: 8480-6 Heart Rat e 1: 116 bpm Height: 5'7" Respiratory Rate: 20 bpm Temperature: 36.9 (C) / 98.4 (F) We ight: 11/09/2011 Blood Pressure 1: 148/96 Code: 8480-6 BMI: 32.1 Code: 43888-3 Heart Rate 1: 116 bpm Height: 5'7" Respiratory Rate: 20 bpm Temperature: 36 .7 (C) / 98.0 (F) Weight: 205 lbs 09/13/2011 Blood Pressure 1: 126/88 Code: 8480-6 Heart Rate 1: 88 bpm Height: 5'7" Respiratory Rate: 20 bpm Temperature: 36.9 (C) / 98.4 (F) We ight: 08/31/2011 Blood Pressure 1: 118/82 Code: 8480-6 BMI: 32.0 Code: 37201-4 Heart Rate 1: 80 bpm Height: 5'7" Temperature: 36.4 (C) / 97.6 (F) Weight: 204 lbs 07/06/2011 Blood Pressure 1: 128/86 Code: 8480-6 BMI: 30.9 Code: 75885-3 Heart Rate 1: 92 bpm Height: 5'7" Respiratory Rate: 20 bpm Temperature: 36 .9 (C) / 98.4 (F) Weight: 197 lbs 06/06/2011 Blood Pressure 1: 112/74 Code: 8480-6 BMI: 31.0 Code: 69850-5 Heart Rate 1: 72 bpm Height: 5'7" [...] 1: 128/92 Code: 8480-6 BMI: 33.6 Code: 85230-8 Heart Rate 1: 104 bpm Height: 5'4" [...] headache 01/30/2012 edema 01/24/2012 Currently just francesco Dexter/HCTSmooth shoulder pain 01/10/2012 thinks these are cau [...] mellitus with hyperglycemia[ICD10: E11.65] Kathleen APPIAH DO [facility] CPT-4: 37041 10/07/2019 ([id number]) OFFICE/OUTPATIENT VISIT EST Diagnosis: DM w/o complication type II, uncontrolled[ICD10: E11.65] Diagnosis: Hypertriglyceridemia[ICD10: E78.1] Diagnosis: Essential hypertension[ICD10: I10] María Elena JEAN [facility] CPT-4: 13501 09/30/2019 ([id number]) NURSE/OUTPATIENT VISIT EST Diagnosis: Essential (primary) hypertension[ICD10: I10] Diagnosis: Cervicalgia[ICD10: M54.2] Diagnosis: Hyperglycemia, unspecified[ICD10: R73.9] Diagnosis: Mixed hyperlipidemia[ICD10: E78.2] María Elena MONTEROLESLIE TED [facility] CPT-4: 22376 09/29/2019 ([id number]) OFFICE/OUTPATIENT VISIT EST Diagnosis: Essential (primary) hypertension[ICD10: I10] Diagnosis: Fall from bed, sequela[ICD10: W06.XXXS] María Elena APPIAH [facility] CPT-4: 32231 05/28/2019 ([id number]) NURSE/OUTPATIENT VISIT EST Diagnosis: Essential (primary) hypertension[ICD10: I10] María Elena APPIA[facility] CPT-4: 34825 05/19/2019 ([id number]) OFFICE/OUTPATIENT VISIT EST Diagnosis: Essential (primary) hypertension[ICD10: I10] Diagnosis: Type 2 diabetes mellitus with hyperglycemia[ICD10: E11.65] Diagnosis: Intervertebral disc disorders with radiculopathy, 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] Diagnosis: Hormone replacement therapy[ICD10: Z79.890] María Elena APPIAH [facility] CPT-4: 59195 01/22/2019 ([id number]) OFFICE/OUTPATIENT VISIT EST Diagnosis: Essential (primary) hypertension[ICD10: I10] Diagnosis: Type 2 diabetes mellitus with hyperglycemia[ICD10: E11.65] María Elena APPIAH [facility] CPT-4: 38980 09/30/2018 ([id number]) OFFICE/OUTPATIENT VISIT EST Diagnosis: Pain in left elbow[ICD10: M25.522] Diagnosis: Acute stress reaction[ICD10: F43.0] Diagnosis: Primary insomnia[ICD10: F51.01] Diagnosis: Abnormal weight gain[ICD10: R63.5] María Elena APPIAH DO [facility] CPT-4: 76689 08/27/2018 ([id number]) OFFICE/OUTPATIENT VISIT EST Diagnosis: Acute recurrent sinusitis, unspecified[ICD10: J01.91] Diagnosis: Follicular disorder, unspecified[ICD10: L73.9] Diagnosis: Tinea corporis[ICD10: B35.4] María Elena APPIAH [facility] CPT-4: 71212 08/09/2018 ([id number]) OFFICE/OUTPATIENT VISIT EST Diagnosis: Tinea corporis[ICD10: B35.4] Diagnosis: Anxiety disorder, unspecified[ICD10: F41.9] Diagnosis: Menopausal and female climacteric states[ICD10: N95.1] María Elena APPIAH [facility] CPT-4: 91187 07/22/2018 ([id number]) NURSE/OUTPATIENT VISIT EST Diagnosis: Cellulitis of right toe[ICD10: L03.031] María Elena APPIAH [facility] CPT-4: 04163 06/19/2018 ([id number]) OFFICE/OUTPATIENT VISIT EST Diagnosis: Cellulitis of right toe[ICD10: L03.031] Kathleen APPIAH [facility] CPT-4: 64358 06/17/2018 ([id number]) OFFICE/OUTPATIENT VISIT EST Diagnosis: Migraine without aura, intractable, without status migrainosus[ICD10: G43.019] Diagnosis: Zoster without complications[ICD10: B02.9] Kathleen APPIAH DO [facility] CPT-4: 98897 05/16/2018 ([id number]) OFFICE/OUTPATIENT VISIT EST Diagnosis: Cellulitis of right lower limb[ICD10: L03.115] Kathleen APPIAH DO [facility] CPT-4: 57442 03/20/2018 ([id number]) OFFICE/OUTPATIENT VISIT EST Diagnosis: Cellulitis of right lower limb[ICD10: L03.115] Kathleen APPIAH [facility] CPT-4: 62330 03/18/2018 ([id number]) OFFICE/OUTPATIENT VISIT EST Diagnosis: Cellulitis of right lower limb[ICD10: L03.115] Kathleen APPIAH DO [facility] CPT-4: 90654 03/15/2018 ([id number]) OFFICE/OUTPATIENT VISIT EST Diagnosis: Acute sinusitis, unspecified[ICD10: J01.90] Kathleen APPIAH DO [facility] CPT-4: 68088 02/11/2018 ([id number]) NURSE/OUTPATIENT VISIT EST Diagnosis: Otitis media, unspecified, right ear[ICD10: H66.91] María Elena APPIAH DO [employer] CPT-4: 34875 02/01/2018 ([id number]) OFFICE/OUTPATIENT VISIT EST Diagnosis: Acute suppurative otitis media without spontaneous rupture of ear drum, left ear[ICD10: H66.002] Diagnosis: Abnormal weight gain[ICD10: R63.5] Diagnosis: Intervertebral disc disorders with radiculopathy, 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] Kathleen APPIAH DO [facility] CPT-4: 99 214 01/30/2018 ([id number]) PREV VISIT EST AGE 40-64 Diagnosis: Encounter for general adult medical examination without abnormal findings[ICD10: Z00.00] Diagnosis: Essential (primary) hypertension[ICD10: I10] Diagnosis: Mixed hyperlipidemia[ICD10: E78.2] Diagnosis: Type 2 diabetes mellitus with hyperglycemia[ICD10: E11.65] Diagnosis: 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] María Elena APPIAH DO [employer] CPT-4: 33803 12/18/2017 ([id number]) OFFICE/OUTPATIENT VISIT EST Diagnosis: Cellulitis of right toe[ICD10: L03.031] Diagnosis: Mixed hyperlipidemia[ICD10: E78.2] Diagnosis: Essential (primary) hypertension[ICD10: I10] Diagnosis: Hyperglycemia, unspecified[ICD10: R73.9] Diagnosis: Nontoxic goiter, 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] María Elena APPIAH DO [facility] CPT-4: 59742 12/10/2017 ([id number]) OFFICE/OUTPATIENT VISIT EST Diagnosis: Cellulitis of right toe[ICD10: L03.031] Diagnosis: Acute sinusitis, unspecified[ICD10: J01.90] Kathleen APPIAH DO [facility] CPT-4: 93850 12/07/2017 OFFICE/OUTPATIENT VISIT EST Diagnosis: Acute maxillary sinusitis, unspecified[ICD10: J01.00] Kathleen APPIAH DO [facility] CPT-4: 72929 10/08/2017 ([id number]) OFFICE/OUTPATIENT VISIT EST Diagnosis: Cellulitis of left toe[ICD10: L03.032] María Elena APPIAH DO [facility] CPT-4: 61404 09/21/2017 ([id number]) OFFICE/OUTPATIENT VISIT EST Diagnosis: Insomnia, unspecified[ICD10: G47.00] Diagnosis: Major depressive disorder, single episode, unspecified[ICD10: F32.9] Diagnosis: Anxiety disorder, unspecified[ICD10: F41.9] Diagnosis: Cellulitis of left toe[ICD10: L03.032] Diagnosis: Snoring[ICD10: R06.83] Kathleen APPIAH DO [facility] CPT-4: 25321 09/20/2017 ([id number]) OFFICE/OUTPATIENT VISIT EST Diagnosis: Cellulitis of left toe[ICD10: L03.032] María Elena APPIAH DO [facility] CPT-4: 04935 07/19/2017 OFFICE/OUTPATIENT VISIT EST Diagnosis: Chronic sinusitis, unspecified[ICD10: J32.9] Diagnosis: Generalized hyperhidrosis[ICD10: R61] Kathleen APPIAH DO [facility] CPT-4: 17920 06/27/2017 ([id number]) OFFICE/OUTPATIENT VISIT EST Diagnosis: Intervertebral disc disorders with radiculopathy, 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] Diagnosis: Primary insomnia[ICD10: F51.01] Diagnosis: Other fatigue[ICD10: R53.83] María Elenamarcella APPIAH [employer] [facility] CPT-4: 11125 04/10/2017 ([id number]) OFFICE/OUTPATIENT VISIT EST Diagnosis: Primary insomnia[ICD10: F51.01] Diagnosis: Localized edema[ICD10: R60.0] Diagnosis: 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] María Elena APPIAH DO [facility] CPT-4: 54175 12/13/2016 ([id number]) OFFICE/OUTPATIENT VISIT EST Diagnosis: Primary insomnia[ICD10: F51.01] Diagnosis: Cyanosis[ICD10: R23.0] María Elena [facility] CPT-4: 93704 11/01/2016 ([id number]) PREV VISIT EST AGE 40-64 Diagnosis: Encounter for gynecological examination (general) (routine) without abnormal findings[ICD10: Z01.419] Diagnosis: Encounter for routine child health examination without abnormal findings[ICD10: Z00.129] María Elena APPIAH [facility] CPT-4: 93183 10/17/2016 ([id number]) OFFICE/OUTPATIENT VISIT EST Diagnosis: Other seasonal allergic rhinitis[ICD10: J30.2] María Elena APPIAH DO [facility] CPT-4: 65120 10/10/2016 ([id number]) OFFICE/OUTPATIENT VISIT EST Diagnosis: Pain in left arm[ICD10: M79.602] Diagnosis: Contact with and (suspected) exposure to potentially hazardous body fluids[ICD10: Z77.21] Diagnosis: 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, 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] Diagnosis: Unspecified open wound, right foot, sequela[ICD10: S91.301S] María Elena APPIAH DO [facility] CPT-4: 96764 09/19/2016 ([id number]) OFFICE/OUTPATIENT VISIT EST Diagnosis: Chronic sinusitis, unspecified[ICD10: J32.9] Diagnosis: Allergic rhinitis due to pollen[ICD10: J30.1] María Elena APPIAH [facility] CPT-4: 77077 08/24/2016 ([id number]) OFFICE/OUTPATIENT VISIT EST Diagnosis: Acute bronchitis, unspecified[ICD10: J20.9] María Elena APPIAH DO [facility] CPT-4: 81444 08/16/2016 ([id number]) OFFICE/OUTPATIENT VISIT EST Diagnosis: Otitis media, unspecified, right ear[ICD10: H66.91] Diagnosis: Acute bronchitis, unspecified[ICD10: J20.9] María Elena APPIAH DO [facility] CPT-4: 70828 08/10/2016 ([id number]) OFFICE/OUTPATIENT VISIT EST Diagnosis: Acute recurrent sinusitis, unspecified[ICD10: J01.91] Diagnosis: Allergic rhinitis due to pollen[ICD10: J30.1] María Elena APPIAH DO [facility] CPT-4: 64113 08/02/2016 ([id number]) OFFICE/OUTPATIENT VISIT EST Diagnosis: Pain in unspecified joint[ICD10: M25.50] María Elena APPIAH DO [facility] CPT-4: 23062 07/27/2016 OFFICE/OUTPATIENT VISIT EST Diagnosis: 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] Diagnosis: Acute recurrent sinusitis, unspecified[ICD10: J01.91] Diagnosis: Other fatigue[ICD10: R53.83] Diagnosis: Primary insomnia[ICD10: F51.01] Diagnosis: Pain in unspecified joint[ICD10: M25.50] María Elena APPIAH [employer] [facility] CPT-4: 63035 07/20/2016 ([id number]) OFFICE/OUTPATIENT VISIT EST Diagnosis: Blister (nonthermal), left great toe, initial encounter[ICD10: S90.422A] Loan Sánchez MARÍA ELENA APPIAH [employer] [facility] CPT-4: 34252 ([id number]) OFFICE/OUTPATIENT VISIT EST Diagnosis: Acute recurrent sinusitis, unspecified[ICD10: J01.91] María Elena APPIAH DO [facility] CPT-4: 58155 05/25/2016 ([id number]) OFFICE/OUTPATIENT VISIT EST Diagnosis: Acute sinusitis, unspecified[ICD10: J01.90] María Elena APPIAH DO [facility] CPT-4: 53460 04/26/2016 ([id number]) OFFICE/OUTPATIENT VISIT EST Diagnosis: Flushing[ICD10: R23.2] Diagnosis: Primary insomnia[ICD10: F51.01] María Elena APPIAH DO [facility] CPT-4: 82803 03/02/2016 ([id number]) OFFICE/OUTPATIENT VISIT EST Diagnosis: Other seasonal allergic rhinitis[ICD10: J30.2] Loan APPIAH DO [facility] CPT-4: 63399 02/09/2016 ([id number]) OFFICE/OUTPATIENT VISIT EST Diagnosis: Primary insomnia[ICD10: F51.01] Diagnosis: Urinary tract infection, site not specified[ICD10: N39.0] María Elena APPIAH DO [facility] CPT-4: 27448 01/24/2016 ([id number]) OFFICE/OUTPATIENT VISIT EST Diagnosis: Other specified disorders of Eustachian tube, bilateral[ICD10: H69.83] Diagnosis: Allergic rhinitis, unspecified[ICD10: J30.9] Loan APPIAH DO [facility] CPT-4: 96167 12/23/2015 ([id number]) OFFICE/OUTPATIENT VISIT EST Diagnosis: Acute recurrent sinusitis, unspecified[ICD10: J01.91] Diagnosis: 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] Diagnosis: Allergic rhinitis, unspecified[ICD10: J30.9] María Elena APPIAH DO [facility] CPT-4: 87394 12/08/2015 ([id number]) OFFICE/OUTPATIENT VISIT EST Diagnosis: Allergic rhinitis, unspecified[ICD10: J30.9] Diagnosis: Pain in unspecified joint[ICD10: M25.50] María Elena APPIAH DO [facility] CPT-4: 91491 10/07/2015 ([id number]) OFFICE/OUTPATIENT VISIT EST Diagnosis: Essential (primary) hypertension[ICD10: I10] María Elenagael APPIAH DO [facility] CPT-4: 66264 10/06/2015 OFFICE/OUTPATIENT VISIT EST Diagnosis: Localized enlarged lymph nodes[ICD10: R59.0] Diagnosis: Local infection of the skin and subcutaneous tissue, unspecified[ICD10: L08.9] June [facility] [facility] CPT- 4: 21555 09/14/2015 ([id number]) OFFICE/OUTPATIENT VISIT EST Diagnosis: Essential (primary) hypertension[ICD10: I10] Diagnosis: Actinic keratosis[ICD10: L57.0] María Elena APPIAH DO [facility] CPT-4: 12771 09/07/2015 ([id number]) OFFICE/OUTPATIENT VISIT EST Diagnosis: Essential (primary) hypertension[ICD10: I10] Diagnosis: Acute stress reaction[ICD10: F43.0] María Elena APPIAH [facility] CPT-4: 04473 08/18/2015 ([id number]) OFFICE/OUTPATIENT VISIT EST Diagnosis: Essential (primary) hypertension[ICD10: I10] María Elena APPIAH DO [facility] CPT-4: 11473 07/07/2015 ([id number]) OFFICE/OUTPATIENT VISIT EST Diagnosis: Essential (primary) hypertension[ICD10: I10] María Elena APPIAH DO [facility] CPT-4: 51113 06/24/2015 ([id number]) OFFICE/OUTPATIENT VISIT EST Diagnosis: Essential (primary) hypertension[ICD10: I10] María Elena APPIAH DO [facility] CPT-4: 79169 06/21/2015 ([id number]) OFFICE/OUTPATIENT VISIT EST Diagnosis: Essential (primary) hypertension[ICD10: I10] Diagnosis: Mixed hyperlipidemia[ICD10: E78.2] Diagnosis: Acute stress reaction[ICD10: F43.0] Diagnosis: Primary insomnia[ICD10: F51.01] María Elena APPIAH DO [facility] CPT-4: 81769 06/16/2015 ([id number]) OFFICE/OUTPATIENT VISIT EST Diagnosis: INSOMNIA NOS[ICD9: 780.52] Diagnosis: HYPERTENSION[ICD9: 401.9] Diagnosis: Stress reaction[ICD9: 308.9] María Elena APPIAH DO [facility] CPT-4: 74660 06/02/2015 ([id number]) OFFICE/OUTPATIENT VISIT EST Diagnosis: HYPERTENSION[ICD9: 401.9] Diagnosis: Stress reaction[ICD9: 308.9] María Elena APPIAH DO [facility] CPT-4: 24865 05/20/2015 ([id number]) OFFICE/OUTPATIENT VISIT EST Diagnosis: Skin lesion[ICD9: 709.9] 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] María Elena APPIAH DO [facility] CPT-4: 49404 05/10/2015 ([id number]) OFFICE/OUTPATIENT VISIT EST Diagnosis: SINUSITIS, ACUTE[ICD9: 461.9] Diagnosis: ALLERGIC RHINITIS[ICD9: 477.9] Diagnosis: DERMATITIS NOS[ICD9: 692.9] María Elena REHMAN [facility] CPT-4: 28399 03/16/2015 OFFICE/OUTPATIENT VISIT EST Diagnosis: Otitis media[ICD9: 382.9] Diagnosis: SINUSITIS, ACUTE[ICD9: 461.9] June VelozAlbertadaniella APPIAH DO [facility] CPT-4: 62331 09/11/2014 ([id number]) OFFICE/OUTPATIENT VISIT EST Diagnosis: HYPERLIPIDEMIA NEC/NOS[ICD9: 272.4] María Elena APPIAH DO [facility] CPT-4: 77036 08/31/2014 ([id number]) OFFICE/OUTPATIENT VISIT EST Diagnosis: - I - HYPERTENSION[ICD9: 401.9] Diagnosis: HYPERLIPIDEMIA NEC/NOS[ICD9: 272.4] María Elena APPIAH DO [facility] CPT-4: 18474 08/27/2014 ([id number]) OFFICE/OUTPATIENT VISIT EST Diagnosis: ABDOMINAL PAIN[ICD9: 789.00] Diagnosis: DYSPEPSIA[ICD9: 536.8] Diagnosis: Thoracic back pain[ICD9: 724.1] María Elena APPIAH DO [facility] CPT-4: 37089 07/21/2014 ([id number]) OFFICE/OUTPATIENT VISIT EST Diagnosis: ALLERGIC RHINITIS[ICD9: 477.9] María Elena APPIAH [facility] CPT-4: 84841 07/15/2014 ([id number]) OFFICE/OUTPATIENT VISIT EST Diagnosis: EDEMA[ICD9: 782.3] Diagnosis: Chronic insomnia[ICD9: 780.52] María Elena APPIAH [facility] CPT-4: 02353 05/18/2014 ([id number]) OFFICE/OUTPATIENT VISIT EST Diagnosis: Thyromegaly[ICD9: 240.9] Diagnosis: - I - HYPERTENSION[ICD9: 401.9] Diagnosis: ROUTINE MEDICAL EXAM[ICD9: V70.0] Diagnosis: EDEMA[ICD9: 782.3] María Elena APPIAH [facility] CPT-4: 34318 05/14/2014 OFFICE/OUTPATIENT VISIT EST Diagnosis: BRONCHITIS, ACUTE[ICD9: 466.0] Diagnosis: SINUSITIS, ACUTE[ICD9: 461.9] María Elena [facility] CPT-4: 50294 04/21/2014 OFFICE/OUTPATIENT VISIT EST Diagnosis: SINUSITIS, ACUTE[ICD9: 461.9] June Flores MARÍA ELENA [facility] CPT-4: 53931 03/04/2014 ([id number]) OFFICE/OUTPATIENT VISIT EST Diagnosis: VACCINE FOR TDAP[ICD10: Z23] María Elena APPAIH [facility] CPT-4: 07451 02/27/2014 ([id number]) OFFICE/OUTPATIENT VISIT EST Diagnosis: Seborrheic keratoses, inflamed[ICD9: 702.11] Diagnosis: ACTINIC KERATOSIS[ICD9: 702.0] Diagnosis: INSOMNIA NOS[ICD9: 780.52] María Elena PANDYA [facility] CPT-4: 85225 01/13/2014 OFFICE/OUTPATIENT VISIT EST Diagnosis: EUSTACHIAN TUBE DYSFUNCTION[ICD9: 381.81] Diagnosis: ALLERGIC RHINITIS[ICD9: 477.9] Diagnosis: Serous otitis media[ICD9: 381.4] María Elena APPIAH [facility] CPT-4: 83911 12/24/2013 ([id number]) OFFICE/OUTPATIENT VISIT EST Diagnosis: SINUSITIS, ACUTE[ICD9: 461.9] Diagnosis: ALLERGIC RHINITIS[ICD9: 477.9] Diagnosis: EUSTACHIAN TUBE DYSFUNCTION[ICD9: 381.81] María Elena APPIAH [facility] CPT-4: 87370 11/12/2013 ([id number]) OFFICE/OUTPATIENT VISIT EST Diagnosis: ALLERGIC RHINITIS[ICD9: 477.9] Diagnosis: SINUSITIS, ACUTE[ICD9: 461.9] María Elena APPIAH [facility] CPT-4: 21588 10/21/2013 ([id number]) OFFICE/OUTPATIENT VISIT EST Diagnosis: ASYMPTOMATIC VARICOSE VEINS[ICD9: 454.9] Diagnosis: INSOMNIA NOS[ICD9: 780.52] María Elena [facility] CPT-4: 33631 09/22/2013 OFFICE/OUTPATIENT VISIT EST Diagnosis: SINUSITIS, ACUTE[ICD9: 461.9] June MagdielAlbertadaniella [facility] CPT-4: 90200 08/27/2013 ([id number]) OFFICE/OUTPATIENT VISIT EST Diagnosis: CEPHALGIA[ICD9: 784.0] Diagnosis: CEPHALGIA, TENSION[ICD9: 307.81] 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] María Elena [facility] CPT-4: 45926 08/04/2013 ([id number]) OFFICE/OUTPATIENT VISIT EST Diagnosis: Cervicalgia[ICD9: 723.1] Diagnosis: SPASM OF MUSCLE[ICD9: 728.85] Diagnosis: CEPHALGIA, TENSION[ICD9: 307.81] María Elena [facility] CPT-4: 02241 07/23/2013 ([id number]) OFFICE/OUTPATIENT VISIT EST Diagnosis: EUSTACHIAN TUBE DYSFUNCTION[ICD9: 381.81] Diagnosis: ALLERGIC RHINITIS[ICD9: 477.9] María Elena Appiah MARÍA ELENA Lucio APPIAH [facility] CPT-4: 15140 06/23/2013 ([id number]) OFFICE/OUTPATIENT VISIT EST Diagnosis: ALLERGIC RHINITIS[ICD9: 477.9] Diagnosis: ACUTE SEROUS OTITIS MEDIA[ICD9: 381.01] Diagnosis: EUSTACHIAN TUBE DYSFUNCTION[ICD9: 381.81] María Elena Seamusabbey JUARES LucioJj TD [facility] CPT-4: 79232 05/26/2013 ([id number]) OFFICE/OUTPATIENT VISIT EST Diagnosis: HYPERTENSION[ICD9: 401.9] Diagnosis: EDEMA[ICD9: 782.3] Diagnosis: Serous otitis media[ICD9: 381.4] María Elena Seamusabbey JUARES LucioJj TD [facility] CPT-4: 45707 04/16/2013 ([id number]) OFFICE/OUTPATIENT VISIT EST Diagnosis: SINUSITIS, ACUTE[ICD9: 461.9] Diagnosis: ALLERGIC RHINITIS[ICD9: 477.9] Diagnosis: EDEMA[ICD9: 782.3] Diagnosis: Thyromegaly[ICD9: 240.9] Diagnosis: MALAISE AND FATIGUE[ICD9: 780.79] María Elena Lopez LucioJj TD [facility] CPT-4: 83409 03/05/2013 ([id number]) OFFICE/OUTPATIENT VISIT EST Diagnosis: PAIN, LOWER BACK[ICD9: 724.2] Diagnosis: SPASM OF MUSCLE[ICD9: 728.85] María Elena JUARES LucioJj TD [facility] CPT-4: 29352 12/23/2012 OFFICE/OUTPATIENT VISIT EST Diagnosis: Low back pain[ICD9: 724.2] Lashawn Hicks [facility] CPT-4: 41439 12/16/2012 ([id number]) OFFICE/OUTPATIENT VISIT EST Diagnosis: PAIN, LOWER BACK[ICD9: 724.2] Diagnosis: SCIATICA[ICD9: 724.3] Diagnosis: Lumbar herniated disc[ICD9: 722.10] María Elena COLON LucioJj TD [employer] [facility] CPT-4: 88217 12/09/2012 ([id number]) OFFICE/OUTPATIENT VISIT EST Diagnosis: PAIN, LOWER BACK[ICD9: 724.2] Diagnosis: SCIATICA[ICD9: 724.3] Diagnosis: LUMBAR DISC DISPLACEMENT[ICD9: 722.10] María Elena MARIN LucioJj TD [facility] CPT-4: 33674 12/04/2012 OFFICE/OUTPATIENT VISIT EST Diagnosis: Pneumonia[ICD9: 486] Mary SerranoNomanJames ELLISLINE LucioJj TD [facility] CPT-4: 66303 11/22/2012 ([id number]) OFFICE/OUTPATIENT VISIT EST Diagnosis: PNEUMONIA, ORGANISM[ICD9: 486] Diagnosis: Exacerbation of RAD (reactive airway disease)[ICD9: 493.92] María Elena MONTEROQUELINE LucioJj TD [facility] CPT-4: 27459 11/21/2012 OFFICE/OUTPATIENT VISIT EST Diagnosis: HYPERTENSION[ICD9: 401.9] Diagnosis: Cephalgia[ICD9: 784.0] Lashawn JUARES LucioJj TD [facility] CPT-4: 87123 10/29/2012 ([id number]) OFFICE/OUTPATIENT VISIT EST Diagnosis: MALAISE AND FATIGUE[ICD9: 780.79] Diagnosis: ARTHRALGIA-MULTIPLE SITES[ICD9: 719.49] María Elena MONTERO APARNAGAEL LucioJj TD [facility] CPT-4: 08646 10/14/2012 ([id number]) OFFICE/OUTPATIENT VISIT EST Diagnosis: URINARY FREQUENCY[ICD9: 788.41] María Elena JUARES LucioJj TD [facility] CPT-4: 82426 09/27/2012 ([id number]) OFFICE/OUTPATIENT VISIT EST Diagnosis: MALAISE AND FATIGUE[ICD9: 780.79] Diagnosis: ARTHRALGIA-MULTIPLE SITES[ICD9: 719.49] María Elena MONTERO APARNAGAEL LucioJj TD [facility] CPT-4: 01153 09/25/2012 ([id number]) OFFICE/OUTPATIENT VISIT EST Diagnosis: SINUSITIS, ACUTE[ICD9: 461.9] Diagnosis: EUSTACHIAN TUBE DYSFUNCTION[ICD9: 381.81] María Elena JUARES LucioJj TD [facility] CPT-4: 96684 08/29/2012 OFFICE/OUTPATIENT VISIT EST Diagnosis: ACTINIC KERATOSIS[ICD9: 702.0] Diagnosis: Inflamed seborrheic keratosis[ICD9: 702.11] Diagnosis: Skin cancer of face[ICD9: 173.31] Diagnosis: HYPERTENSION[ICD9: 401.9] María Elena SEYMOUR [facility] CPT-4: 55052 08/12/2012 ([id number]) OFFICE/OUTPATIENT VISIT EST Diagnosis: ARTHRALGIA-MULTIPLE SITES[ICD9: 719.49] Diagnosis: GOUT[ICD9: 274.9] Diagnosis: HYPERTENSION[ICD9: 401.9] Diagnosis: Tachycardia[ICD9: 785.0] María Elena HU KARLOS [facility] CPT-4: 65210 05/06/2012 ([id number]) OFFICE/OUTPATIENT VISIT EST Diagnosis: INSOMNIA NOS[ICD9: 780.52] María Elena [facility] CPT-4: 64621 04/03/2012 ([id number]) OFFICE/OUTPATIENT VISIT EST Diagnosis: INSOMNIA NOS[ICD9: 780.52] Diagnosis: HYPERTENSION[ICD9: 401.9] Diagnosis: MIGRAINE NOS/NOT INTRCBL[ICD9: 346.90] María Elena APPIAH [facility] CPT-4: 37331 03/19/2012 ([id number]) OFFICE/OUTPATIENT VISIT EST Diagnosis: CELLULITIS[ICD9: 682.9] Diagnosis: Ankle pain[ICD9: 719.47] Diagnosis: HYPERTENSION[ICD9: 401.9] María Elena SEYMOUR [facility] CPT-4: 26710 02/20/2012 ([id number]) OFFICE/OUTPATIENT VISIT EST Diagnosis: MIGRAINE NOS/NOT INTRCBL[ICD9: 346.90] Diagnosis: Vomiting[ICD9: 787.03] María Elena TANNER R [facility] CPT-4: 75361 01/30/2012 ([id number]) OFFICE/OUTPATIENT VISIT EST Diagnosis: EDEMA[ICD9: 782.3] Diagnosis: HYPERTENSION[ICD9: 401.9] Diagnosis: ALLERGIC RHINITIS[ICD9: 477.9] Diagnosis: ARTHRALGIA-MULTIPLE SITES[ICD9: 719.49] María Elenamarcella APPIAH [facility] CPT-4: 21383 01/24/2012 ([id number]) OFFICE/OUTPATIENT VISIT EST Diagnosis: SPASM OF MUSCLE[ICD9: 728.85] Diagnosis: Thoracic back pain[ICD9: 724.1] Diagnosis: Cervical pain[ICD9: 723.1] María Elena PANDYA [facility] CPT-4: 12398 01/10/2012 OFFICE/OUTPATIENT VISIT EST Diagnosis: PAIN, LOWER BACK[ICD9: 724.2] Diagnosis: LUMBAR DISC DISPLACEMENT[ICD9: 722.10] María Elena Seamusabbey MARLIN APPIAH [facility] CPT-4: 91047 12/11/2011 OFFICE/OUTPATIENT VISIT EST Diagnosis: MIGRAINE NOS/NOT INTRCBL[ICD9: 346.90] Diagnosis: SINUSITIS, ACUTE[ICD9: 461.9] María Elena Waymindimaryjane APPIAH [facility] CPT-4: 76801 11/09/2011 OFFICE/OUTPATIENT VISIT EST Diagnosis: MIGRAINE NOS/NOT INTRCBL[ICD9: 346.90] Diagnosis: LYMPHADENOPATHY[ICD9: 785.6] María Elena [facility] CPT-4: 31252 09/13/2011 OFFICE/OUTPATIENT VISIT EST Diagnosis: MALAISE AND FATIGUE[ICD9: 780.79] Diagnosis: ARTHRALGIA-MULTIPLE SITES[ICD9: 719.49] María Elena Seamusabbey MONTERO APARNAGAEL LucioJj TD [facility] CPT-4: 94432 08/31/2011 OFFICE/OUTPATIENT VISIT EST Diagnosis: SINUSITIS, ACUTE[ICD9: 461.9] María Elena APPIAH [facility] CPT-4: 83227 07/20/2011 OFFICE/OUTPATIENT VISIT EST Diagnosis: HYPERTENSION[ICD9: 401.9] Diagnosis: PAIN, LOWER BACK[ICD9: 724.2] Diagnosis: SPASM OF MUSCLE[ICD9: 728.85] María Elena Seamusabbey MARÍA ELENA Fabiola APPIAH [employer] [facility] CPT-4: 77654 07/06/2011 OFFICE/OUTPATIENT VISIT EST Diagnosis: MIGRAINE NOS/NOT INTRCBL[ICD9: 346.90] Diagnosis: HYPERTENSION[ICD9: 401.9] María Elena Hicks [facility] [employer] CPT-4: 89930 05/22/2011 OFFICE/OUTPATIENT VISIT EST Diagnosis: SINUSITIS, ACUTE[ICD9: 461.9] Diagnosis: MIGRAINE NOS/NOT INTRCBL[ICD9: 346.90] Diagnosis: Dehydration[ICD9: 276.51] Diagnosis: Vomiting[ICD9: 787.03] María Elena Seamusmindimaryjane ELLISMARÍA ELENA Fabiola WAYNDE R DO [facility] CPT-4: 95705 05/09/2011 ([id number]) OFFICE/OUTPATIENT VISIT EST María Elena ISAAC UELINE S. OREND[facility] DO [facility] CPT-4: 34679 02/14/2011 ([id number]) OFFICE/OUTPATIENT VISIT EST María Elena [facility]AC [facility] CPT-4: 04667 02/03/2011 ([id number]) OFFICE/OUTPATIENT VISIT EST María Elena ISAAC UELINE [facility] DO [facility] CPT-4: 23052 01/31/2011 ([id number]) OFFICE/OUTPATIENT VISIT EST María Elena ISAAC [facility] CPT-4: 22756 01/25/2011 ([id number]) OFFICE/OUTPATIENT VISIT EST María Elena ISAAC [facility] CPT-4: 09288 01/18/2011 ([id number]) OFFICE/OUTPATIENT VISIT EST María Elena Td ISAAC [facility] CPT-4: 38390 11/29/2010 ([id number]) OFFICE/OUTPATIENT VISIT, EST María Elena Seamusmindimaryjane [facility]EL [facility] CPT-4: 10239 10/10/2010 ([id number]) OFFICE/OUTPATIENT VISIT, EST María Elena Seamusmindimaryjane KYLAH APRANAGAEL S. ORENDER DO [facility] CPT-4: 58754 06/07/2010 ([id number]) OFFICE/OUTPATIENT VISIT, EST María Elena Seamusabbey MONTERO [facility]NAGAEL [facility] CPT-4: 55908 04/27/2010 ([id number]) OFFICE/OUTPATIENT VISIT, EST María Elena [facility] CPT-4: 34264 04/05/2010 ([id number]) OFFICE/OUTPATIENT VISIT, EST María Elena REED SJj [facility] CPT-4: 40158 03/09/2010 ([id number]) OFFICE/OUTPATIENT VISIT, EST María Elena [facility] CPT-4: 37051 03/03/2010 ([id number]) OFFICE/OUTPATIENT VISIT, EST María Elena [facility] CPT-4: 32295 01/17/2010 ([id number]) PREV VISIT, EST, AGE 40-64 María Elena WAYNDER DO [employer] CPT-4: 97996 12/27/2009 Plan of Care Planned Activity Notes [...] E11.65 10/07/2019 Appointment: [facility] Zuniga [address] [id number] 10/07/2019 Visit Diagnosis Plan: [...] E11.65 09/30/2019 Appointment: María Elena Appiah WPtel: [address] [place] [address] US CHECK UP 09/30/2019 Patient Education: Premarin- [employer] Coupon [id number] https://[email or web address]/samplemd/resources/getResource/61/[email or web address]-[email or web address]-c6 Completed 09/30/2019 Appointment: María Elena Appiah WPtel: [address] [place], [place] [phone] [place] LAB 09/29/2019 Appointment: María Elena Appiah WPtel: [address] [place] [address] Won't have the new insurance till Sep [...] W06.XXXS 05/28/2019 Appointment: María Elena Appiah WPtel: [address] [place], [place] [phone] US FOLLOW UP 05/28/2019 Appointment: María Elena Appiah WPtel: [address] [place], [place] [phone] US BP CHECK 05/19/2019 Visit Diagnosis Plan: [...] 01/22/2019 Appointment: María Elena Appiah WPtel: [address] [place], [place] [phone] [place] FOLLOW UP 01/22/2019 Patient Education: estradiol- [employer] Coupon [id number] https://[email or web address]/samplemd/resources/getResource/61/953r788v-[email or web address] Completed 01/22/2019 Appointment: María Elena Appiahtel: [address] [place], [place] [id number] [place] CANCELED 01/20/2019 Appointment: María Elena Appiahtel: [address] [place], [place] [phone] US LM NO SHOW 01/06/2019 Appointment: María Elena Appiahtel: [address] [place], [place] [phone] [place] CANCELED 10/17/2018 Appointment: María Elena Appiahl: [address] [place], [place] [phone] US BP CHECK 10/09/2018 Visit Diagnosis Plan: [...] I10 09/30/2018 Appointment: María Elena Appiah WPtel: [address] [place] [address] US FOLLOW UP 09/30/2018 Visit Diagnosis Plan: [...] F51.01 08/27/2018 Appointment: María Elena Appiah WPtel: [address] [place], [place] [phone] ACUTE ILLNESS 08/27/2018 Appointment: María Elena Appiah WPtel: [address] [place], [place] [phone] [place] Patient stated she went out to [...] prn. Tyle... 08/09/2018 Appointment: María Elena Appiahtel: [address] [place], [place] [phone] ACUTE ILLNESS 08/09/2018 Appointment: María Elena Appiah WPtel: [address] [place] [address] NO SHOW 08/08/2018 Visit Diagnosis Plan: Anxiety [...] B35.4 07/22/2018 Appointment: María Elena Appiah WPtel: [address] [place] [address] ACUTE ILLNESS 07/22/2018 Appointment: María Elena Appiah WPtel: [address] [place] [address] [place] INJECTION 06/19/2018 Patient Education: Patient Medication [...] : L03.031 06/17/2018 Appointment: Kathleen Zuniga 504 [facility] ACUTE ILLNESS 06/17/2018 Patient Education: Patient Medication [...] : B02.9 05/16/2018 Appointment: Kathleen Zuniga 504 [facility] ACUTE ILLNESS 05/16/2018 Patient Education: Patient Medication [...] : L03.115 03/20/2018 Appointment: Kathleen Zuniga [address] [place] [phone] FOLLOW UP 03/20/2018 Patient Education: Patient Medication [...] : L03.115 03/18/2018 Appointment: Kathleen Zuniga [address] FOLLOW UP 03/18/2018 Patient Education: Patient [...] ICD-10 : L03.115 03/15/2018 Appointment: Kathleen Zuniga [address] [place] [address] ACUTE ILLNESS 03/15/2018 Patient Education: Patient Medication [...] ICD-10 : J01.90 02/11/2018 Appointment: Kathleen Zuniga [address] [place] [address] ACUTE ILLNESS 02/11/2018 Patient Education: Patient Medication Summary Completed 02/11/2018 Appointment: María Elena Appiah WPtel: [facility] INJECTION 02/01/2018 Patient Education: Patient Medication Summary [...] : M51.16 01/30/2018 Appointment: Kathleen Zuniga [address] [place] [address] ACUTE ILLNESS 01/30/2018 Patient Education: Patient Medication [...] E11.65 12/18/2017 Appointment: María Elena Appiah WPtel: [address] [place] [address] Annual Well Visit 12/18/2017 Patient Education: Patient Medication Summary Completed 12/18/2017 Care Plan: Referral Order SNOMED-CT : [id number] Pending 12/18/2017 Appointment: María Elena Appiah WPtel: [facility] [place] [phone] INJECTION 12/10/2017 Patient Education: Patient Medication Summary [...] ICD-10 : L03.031 12/07/2017 Appointment: Kathleen Zuniga [address] [place] [address] ACUTE ILLNESS 12/07/2017 Patient Education: Patient Medication [...] ICD-10 : J01.00 10/08/2017 Appointment: Kathleen Zuniga [address] [place] [address] ACUTE ILLNESS 10/08/2017 Patient Education: Patient Medication Summary Completed 10/08/2017 Appointment: María Elena Appiah WPtel: [address] [facility] [place] INJECTION 09/21/2017 Patient Education: Patient Medication [...] : R06.83 09/20/2017 Appointment: Kathleen Zuniga 504 [employer] [id number] 09/20/2017 Patient Education: Patient Medication [...] : L60.0 08/29/2017 Appointment: Kathleen Zuniga 504 [employer] [id number] OFFICE SURGERY 08/29/2017 Patient Education: Patient Medication Summary Completed 08/29/2017 Visit Diagnosis Plan: Actinic keratosis Discussion: Cr yotherapy as above ICD-9 : 702.0 ICD-10 : L57.0 08/01/2017 Appointment: María Elena Appiah WPtel: [address] [place] [address] OFFICE SURGERY 08/01/2017 Patient Education: Patient Medication Summary Completed 08/01/2017 Appointment: María Elena Appiah WPtel: [address] [place] [address] PATIENT THOUGHT APPOINTMENT WAS TOMORROW 07/26/17 CALLED 15 MINUTES BEFORE APPT TO SAY SHE DIDN'T HAVE ANYONE TO COVER HER BUSINESS AND WOULD NOT MAKE IT NO SHOW 07/25/2017 Visit Diagnosis Plan: Cellulitis of left toe Discussio n: Clindamycin and notify if worsening or persistis ICD-9 : 681.10 ICD-10 : L03.032 07/19/2017 Appointment: María Elena Appiah WPtel: [address] [place] [address] MEDICATION REVIEW 07/19/2017 Patient Education: Patient Medication Summary Completed 07/19/2017 Appointment: María Elena Appiah WPtel: [address] [place] [address] CANCELED 07/04/2017 Visit Diagnosis Plan: Generalized hyperhidrosis Discus ian: CBC, CMP, TSH, free T4 ordered to assess. will review labs. ICD-9 : 780.8 ICD-10 : R61 06/27/2017 Visit Diagnosis Plan: Chronic sinusitis, unspecified D iscussion: Referral sent to dr. albarado in [place] per patient request. patient has been treated multiple times for sinus infections with no recovery. patient was seen by dr sanchez in the past with no interventions. patient has deviated septum which may be affecting her sinuses. 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, including hip Discussion: Shave removal of above lesio n--sent to pathology ICD-9 : 216.7 ICD-10 : D23.72 01/24/2017 Appointment: María Elena Appiah WPtel: [address] [place], [place] [phone] [place] 01/23 confirmed ~sl OFFICE SURGERY 01/24/2017 Patient Education: Patient Medication Summary Completed 01/24/2017 Appointment: Loan Sánchez [address] [place], [place] [phone] 01/09 rescheduled~sl RESCHEDULED 01/15/2017 Visit [...] L81.4 12/13/2016 Appointment: María Elena Appiah WPtel: [address] [place] [id number] 12/12 confirmed ~ MEDICATION REVIEW 12/13/2016 Patient Education: Patient Medication Summary Completed 12/13/2016 Appointment: María Elena Appiah WPtel: [address] [place], [place] [phone] [place] rescheduled for 12/13/16 at 11am RESCHEDULED 0 12/06/2016 Appointment: María Elena Appiah WPtel: [address] [place], [place] [phone] [place] CANCELED 11/23/2016 Patient Education: Patient Medication [...] F51.01 11/01/2016 Appointment: María Elena Appiah WPtel: [address] [place] [id number] [place] 10/31 lm `sl 11/01 lm`sl MEDICATION REVIEW 017 Patient Education: Patient Medication Summary Completed 11/01/2016 Referral: Canelo Overton WPtel: [phone] [id number] [place] Referral Initiated 10/30/2016 Visit Diagnosis Plan: [...] 10/17/2016 Appointment: María Elena Appiah WPtel: [address] [place], [place] [phone] 10/16 confirmed ~sl PAP 10/17/2016 Patient Education: Patient Medication Summary Completed 10/17/2016 Care Plan: MAMMOGRAM SCREENING LOINC : 2 6347-5 Pending 10/17/2016 Visit Diagnosis Plan: Other seasonal allergic rhinitis Discussion: Decadron/Garamycin Nasal [place] Mix Too soon for steroid Retry zyrtec 10mg daily ICD-9 : 477.9 ICD-10 : J30.2 10/10/2016 Appointment: María Elena Appiah WPtel: [address] [place], [place] [phone] [place] FOLLOW UP 10/10/2016 Patient Education: Patient Medication Summary Completed 10/10/2016 Appointment: María Elena Appiah WPtel: [address] [place], [place] [phone] 10/02 reschedule `sl RESCHEDULED 10/02/2016 Visit Plan: See surgery for removal of n ew left arm lesion and right foot lesion Lyrica to use next month for left arm paresthesias Continue current meds Discussed sunscreen/sunblock combo 09/19/2016 Appointment: María Elena Appiah WPtel: [address] [place], [place] [phone] 09/18 confirmed ~sl FOLLOW UP 09/19/2016 Patient Education: Patient Medication Summary Completed 09/19/2016 Patient Education: Patient Medication Summary Completed 09/18/2016 Care Plan: MAMMOGRAM BOTH BREASTS LOINC : 43818-4 Pending 09/18/2016 Visit Plan: Discussed that needs [...] sinuses 08/24/2016 Appointment: María Elena Appiah WPtel: [address] [place], [place] [id number] ACUTE ILLNESS 08/24/2016 Patient Education: Patient Medication Summary Completed 08/24/2016 Patient Education: Patient Medication Summary Completed 08/23/2016 Care Plan: MAMMOGRAM SCREENING [facility] : 2 6347-5 Pending 08/23/2016 Visit Plan: Finish doxycycline Add Breo 100/25 1 p BID for 2 weeks If not improving within next 2 days will get CXR 08/16/2016 Appointment: María Elena Appiah WPtel: [address] [place] [address] ACUTE ILLNESS 08/16/2016 Patient Education: Patient Medication Summary Completed 08/16/2016 Visit Plan: Supportive care. Rest, Fluid s, Tylenol/Motrin prn fever or bodyaches. Notify if worsening symptoms. Doxycyline and Prednisone 08/10/2016 Appointment: María Elena Appiah WPtel: [address] [place] [address] 08/09 lm`sl....confirmed-sp FOLLOW UP 09/2015 Patient Education: Patient Medication Summary Completed 08/10/2016 Visit Plan: Saline nasal flushes prn. Ty lenol/Motrin prn headache. Notify if persists/symptoms worsening. Dexamethasone 8mg IM today May use coricedan and mucinex 08/02/2016 Appointment: María Elena Appiah WPtel: [address] [place], [place] [id number] ACUTE ILLNESS 08/02/2016 Patient Education: Patient Medication Summary Completed 08/02/2016 Visit Plan: Cryotherapy as above and lef t forearm lesion removal as above with 5-0 punch biopsy and sent to path Return in 10 days for suture removal 08/01/2016 Appointment: María Elena Appiah WPtel: [address] [place] [address] 11/21 confirmed`~sl OFFICE SURGERY 08/01/2016 Patient Education: Patient Medication Summary Completed 08/01/2016 Visit Plan: Stop clindamycin Check CBC, CMP, ESR now/STAT 07/27/2016 Appointment: María Elena Appiah WPtel: [address] [place] [address] ACUTE ILLNESS 07/27/2016 Patient Education: Patient Medication Summary Completed 07/27/2016 Visit Plan: Update lab and check ABIs to start with Will likely need cardiology evaluation to rule out PVD Clindamycin for 10 days Daily yogurt or probiotic Will return for removal of left arm lesions 07/20/2016 Appointment: María Elena Appiah WPtel: [address] [place] [address] ACUTE ILLNESS 07/20/2016 Patient Education: Patient Medication Summary Completed 07/20/2016 Patient Education: Patient Medication Summary Completed 07/20/2016 Care Plan: MAMMOGRAM BOTH BREASTS LOINC : 70541-6 Pending 07/20/2016 Care Plan: US EXAM CHEST LOINC : 46241-8 Pending 07/20/2016 Visit Plan: Wound culture collected from left great toe Appearance is somewhat staph like Rx as above Wound cleanser and skin care reviewed May need to add oral antibiotic if sores do not heal or continue to reoccur 07/06/2016 Appointment: Loan Sánchez [address] [place] [address] ACUTE ILLNESS 07/06/2016 Patient Education: Patient Medication Summary Completed 07/06/2016 Appointment: María Elena Appiah WPtel: [address] [place] [address] [place] INJECTION 05/25/2016 Patient Education: Patient Medication Summary Completed 05/25/2016 Visit Plan: Saline nasal flushes prn. Ty lenol/Motrin prn headache. Notify if persists/symptoms worsening. Dexamethasone and Rocephin given 04/26/2016 Appointment: María Elena Appiah WPtel: [address] [place] [address] ACUTE ILLNESS 04/26/2016 Patient Education: Patient Medication Summary Completed 04/26/2016 Visit Plan: Check CBC, CMP, TSH, FreeT4, HbA1C, estradiol, lipids in AM 03/02/2016 Appointment: María Elena Appiah WPtel: [address] [place] [address] 03/01 lm~sl ACUTE ILLNESS 03/02/2016 Patient Education: Patient Medication Summary Completed 03/02/2016 Visit Plan: Exam is nearly normal Needs to be taking daily antihistamine Would prefer to use oral steroids instead of shot but patient insist that oral steroids cause horrible headaches for her Will given kenalog IM instead 02/09/2016 Appointment: Loan Sánchez [address] [place] [address] ACUTE ILLNESS 02/09/2016 Patient Education: Patient Medication Summary Completed 02/09/2016 Visit Plan: Culture urine Macrobid DC xa nax Trial of Ativan 1mg q HS 01/24/2016 Appointment: María Elena Appiah WPtel: [address] [place] [address] ACUTE ILLNESS 01/24/2016 Patient Education: Patient Medication Summary Completed 01/24/2016 Visit Plan: No steroid or rocephin injec tion warranted Can have oral prednisone Continue current home regimen Needs to follow up with Dr Sanchez if problems persist 12/23/2015 Appointment: Loan Sánchez [address] [place] [address] ACUTE ILLNESS 12/23/2015 Patient Education: Patient Medication Summary Completed 12/23/2015 Visit Plan: Saline nasal flushes prn. Ty lenol/Motrin prn headache. Notify if persists/symptoms worsening. Kenalog 40mg IM today 12/08/2015 Appointment: María Elena Appiah WPtel: [address] [place], [place] [id number] 12/06 confirmed~sl ACUTE ILLNESS 12/08/2015 Patient Education: Patient Medication Summary Completed 12/08/2015 Appointment: María Elena Appiah WPtel: [address] [place] [address] ACUTE ILLNESS 11/18/2015 Patient Education: Patient Medication Summary Completed 10/11/2015 Appointment: María Elena Appiah WPtel: [address] [place], [place] [phone] [place] INJECTION 10/07/2015 Patient Education: Patient Medication Summary Completed 10/07/2015 Visit Plan: Check renal arterial doppler s and ECHO Change amlodopine to lotrel 5/20mg q HS Will need stress test as well Check CMP, uric acid, ESR 10/06/2015 Appointment: María Elena Appiah WPtel: [address] [place] [address] ACUTE ILLNESS 10/06/2015 Patient Education: Patient Medication Summary Completed 10/06/2015 Patient Education: [facility] [employer] [employer] - Amlodipine Besylate - 18-64 - Dynamic Portal ID Completed 10/06/2015 Appointment: María Elena Appiah WPtel: [address] [place] [address] FOLLOW UP 09/22/2015 Visit Plan: Cephalexin 500 mg PO bid Mery ly topical Mupirocin to lesions on left lateral neck and face Follow-up in one week. Sooner if symptoms worsen 09/14/2015 Appointment: June Flores WPtel: [address] [place] [address] ACUTE ILLNESS 09/14/2015 Patient Education: Patient Medication Summary Completed 09/14/2015 Visit Plan: Change bystolic to bedtime d osing and amlodopine to morning dosing Cryotherapy as above to AKs 09/07/2015 Appointment: María Elena Appiah WPtel: [address] [place], [place] [phone] 09/06 appointment made and confirmed ~sl FOLLOW UP 09/07/2015 Patient Education: Patient Medication Summary Completed 09/07/2015 Visit Plan: Increase bystolic back to 20 mg daily but will split and take 10mg in AM and 10mg in PM Stress Reducers 08/18/2015 Appointment: María Elena Appiah WPtel: [address] [place], [place] [phone] 08/17/15 appt confirmed cn ACUTE ILLNESS 08/18 Patient Education: Patient Medication Summary Completed 08/18/2015 Appointment: María Elena Appiah WPtel: [address] [place] [address] BP CHECK 07/07/2015 Patient Education: Patient Medication Summary Completed 07/07/2015 Appointment: María Elena Appiah WPtel: [address] [place] [address] BP CHECK 06/24/2015 Patient Education: Patient Medication Summary Completed 06/24/2015 Appointment: María Elena Appiah WPtel: [address] [place] [address] BP CHECK 06/21/2015 Patient Education: Patient Medication Summary Completed 06/21/2015 Visit Plan: Lab discussed Continue curre nt meds and lifestyle modification Recheck lab in 6mos 06/16/2015 Appointment: María Elena Appiah WPtel: [address] [place] [address] 06/15 confirmed FOLLOW UP 06/16/2015 Patient Education: Patient Medication Summary Completed 06/16/2015 Patient Education: Patient Medication Summary Completed 06/15/2015 Visit Plan: Increase cymbalta to 60mg q HS Keep clonidine at current dose Recheck 2weeks Change xanax to klonopin 06/02/2015 Appointment: María Elena Appiah WPtel: [address] [place] [address] 06/02 lm FOLLOW UP 06/02/2015 Patient Education: Patient Medication Summary Completed 06/02/2015 Appointment: María Elena Appiah WPtel: [address] [place] [address] ACUTE ILLNESS 05/24/2015 Visit Plan: Increase clonidine to 0.2mg q HS Add cymbalta 30mg q HS Recheck 2weeks Stress Reducers Check fasting lab Discussed sleep study 05/20/2015 Appointment: María Elena Appiah WPtel: [address] [place] [address] ACUTE ILLNESS 05/20/2015 Patient Education: Patient Medication Summary Completed 05/20/2015 Patient Education: [facility] [facility] [place] [employer] [employer] - Cymbalta - 18-64 - Dynamic Portal ID Completed 05/20/2015 Appointment: María Elena Appiah WPtel: [address] [place] [address] BP CHECK 05/19/2015 Patient Education: Patient Medication Summary Completed 05/19/2015 Visit Plan: Topical Bactroban alternatin g with topical betamethasone Recheck 2weeks 05/10/2015 Appointment: María Elena Appiah WPtel: [address] [place] [address] 05/07 cn...05/07 appt confirmed OFFICE SURGER Y 05/10/2015 Patient Education: Patient Medication Summary Completed 05/10/2015 Referral: Patrick Chandler WPtel: [address] [place] [address] Referral Initiated 05/04/2015 Visit Plan: Saline nasal flushes prn. Ty lenol/Motrin prn headache. Notify if persists/symptoms worsening. Depomedrol 40mg IM today 03/16/2015 Appointment: María Elena Appiah WPtel: [address] [place] [address] ACUTE ILLNESS 03/16/2015 Patient Education: Patient Medication Summary Completed 03/16/2015 Appointment: María Elena Appiah WPtel: [address] [place] [address] ER Follow UP 03/09/2015 Visit Plan: Cryotherapy to lesions as ab ove 10/27/2014 Appointment: María Elena Appiah WPtel: [address] [place] [address] OFFICE SURGERY 10/27/2014 Patient Education: Patient Medication Summary Completed 10/27/2014 Appointment: June Flores WPtel: [address] [place] [address] [place] ACUTE ILLNESS 09/11/2014 Patient Education: Patient Medication Summary Completed 09/11/2014 Visit Plan: Lab discussed Lipitor 10mg d aily Coenzyme Q-10 400mg daily Vitamin D3 5000u daily Recheck lipids with LFTs in 3mos then fwup 08/31/2014 Appointment: María Elena Appiahtel: [address] [place] [address] 08/28 voicemail FOLLOW UP 08/31/2014 Patient Education: Patient Medication Summary Completed 08/31/2014 Appointment: María Elena Appiah WPtel: [address] [place] [address] [place] LAB 08/27/2014 Appointment: María Elena Appiah WPtel: [address] [place] [address] [place] LAB 08/27/2014 Patient Education: Patient Medication Summary Completed 08/27/2014 Appointment: María Elena Appiah WPtel: [address] [place] [address] ACUTE ILLNESS 07/23/2014 Appointment: María Elena Appiahtel: [address] [place] [address] ACUTE ILLNESS 07/21/2014 Patient Education: Patient Medication Summary Completed 07/21/2014 Visit Plan: Kenalog 40mg IM today Contin ue narendra and singulair Add Flonase 07/15/2014 Appointment: María Elena Appiah WPtel: [address] [place] [address] ACUTE ILLNESS 07/15/2014 Appointment: María Elena Appiah WPtel: [address] [place] [address] ACUTE ILLNESS 07/15/2014 Patient Education: Patient Medication Summary Completed 07/15/2014 Visit Plan: Will do metolazone 2.5mg prn with 6 potassium and see if causes as severe cramping Trial of of seroquel XR 50mg q PM with evening meal and let us know how works 05/18/2014 Appointment: María Elena Appiah WPtel: [address] [place], [place] [phone] 05/15 left message FOLLOW UP 05/18/2014 Patient Education: Patient Medication Summary Completed 05/18/2014 Appointment: María Elena Appiah WPtel: [address] [place], [place] [phone] LAB 05/14/2014 Patient Education: Patient Medication Summary Completed 05/14/2014 Appointment: María Elena Appiah WPtel: [address] [place], [place] [phone] [place] INJECTION 04/22/2014 Visit Plan: Nimco today a nd finish abx given from urgent care 04/21/2014 Appointment: María Elena Appiah WPtel: [address] [place], [place] [phone] INJECTION 04/21/2014 Patient Education: Patient Medication Summary Completed 04/21/2014 Appointment: June Flores WPtel: [address] [place] [address] ACUTE ILLNESS 03/04/2014 Patient Education: Patient Medication Summary Completed 03/04/2014 Appointment: María Elena Appiah WPtel: [address] [place], [place] [phone] [place] INJECTION 02/27/2014 Patient Education: Patient Medication Summary Completed 02/27/2014 Visit Plan: Cryotherapy as above to all lesions Patient wants to try no meds for insomnia for a while and see how goes 01/13/2014 Appointment: María Elena Appiah WPtel: [address] [place], [place] [phone] OFFICE SURGERY 01/13/2014 Patient Education: Patient Medication Summary Completed 01/13/2014 Visit Plan: Stop Melatonin Stop Soma Tri al of trazadone 75mg q HS See ENT for possible tubes as has had chronic ETD and serous otitis media with numerous steroids 12/24/2013 Appointment: María Elena Appiah WPtel: [address] [place] [address] ACUTE ILLNESS 12/24/2013 Patient Education: Patient Medication Summary Completed 12/24/2013 Visit Plan: Saline nasal flushes prn. Ty lenol/Motrin prn headache. Notify if persists/symptoms worsening. 11/12/2013 Appointment: María Elena Appiah WPtel: [address] [place] [address] ACUTE ILLNESS 11/12/2013 Patient Education: Patient Medication Summary Completed 11/12/2013 Appointment: María Elena Appiah WPtel: [address] [place] [address] ACUTE ILLNESS 10/21/2013 Patient Education: Patient Medication Summary Completed 10/21/2013 Visit Plan: Sleep hygiene and sleep rout ine Melatonin 10mg q HS Support stockings and observe 09/22/2013 Appointment: María Elena Appiah WPtel: [address] [place] [address] ACUTE ILLNESS 09/22/2013 Patient Education: Patient Medication Summary Completed 09/22/2013 Appointment: June Flores WPtel: [address] [place] [address] ACUTE ILLNESS 08/27/2013 Patient Education: Patient Medication Summary Completed 08/27/2013 Visit Plan: Proceed with CT scan of head /neck Proceed with occipital nerve injections Butrans 20mcg patch weekly until can get into see Dr. Mcdonough for injections 08/04/2013 Appointment: María Elena Appiah WPtel: [address] [place] [address] FOLLOW UP 08/04/2013 Patient Education: Patient Medication Summary Completed 08/04/2013 Visit Plan: OMT done Daily neck stretche s, moist heat Increase Celebrex to 200mg BID Add flexeril 07/23/2013 Appointment: María Elena Appiah WPtel: [address] [place], [place] [phone] [place] 07/22 voicemail FOLLOW UP 07/23/2013 Patient Education: Patient Medication Summary Completed 07/23/2013 Appointment: María Elena Appiah WPtel: [address] [place] [address] ACUTE ILLNESS 06/23/2013 Patient Education: Patient Medication Summary Completed 06/23/2013 Appointment: María Elena Appiah WPtel: [address] [place] [address] ACUTE ILLNESS 05/26/2013 Patient Education: Patient Medication Summary Completed 05/26/2013 Visit Plan: Decrease clonidine to 0.1mg TID If BP remains stable consider decreasing amlodopine Prednisone for 5 days BP check in 1mo 04/16/2013 Appointment: María Elena Appiah WPtel: [address] [place] [address] 04/14 pt called and confirmed appt FOLLOW UP 04/16/2013 Patient Education: Patient Medication Summary Completed 04/16/2013 Appointment: María Elena Appiah WPtel: [address] [place] [address] ACUTE ILLNESS 03/05/2013 Patient Education: Patient Medication Summary Completed 03/05/2013 Visit Plan: Pt has MARIA ELENA on with Dr. Mcdonough Continue Butrans patch Refill Hydrocodone early tomorrow 12/23/2012 Appointment: María Elena Appiah WPtel: [address] [place] [address] FOLLOW UP 12/23/2012 Patient Education: Patient Medication Summary Completed 12/23/2012 Appointment: Lashawn Eckert WPtel: [address] [place] [address] ACUTE ILLNESS 12/16/2012 Patient Education: Patient Medication Summary Completed 12/16/2012 Visit Plan: Proceed with updated MRI of LS spine Continue gabapentin and add soma and diclofenac Will likely need to go for another epidural 12/09/2012 Appointment: María Elena Appiah WPtel: [address] [place], [place] [phone] ACUTE ILLNESS 12/09/2012 Patient Education: Patient Medication Summary Completed 12/09/2012 Visit Plan: Injection as above Finish me drol dose pack Chiropracter this afternoon 12/04/2012 Appointment: María Elena Appiah WPtel: [address] [place] [address] ACUTE ILLNESS 12/04/2012 Patient Education: Patient Medication Summary Completed 12/04/2012 Appointment: Mary Tillman WPtel: [address] [place] [address] FOLLOW UP 11/22/2012 Patient Education: Patient Medication Summary Completed 11/22/2012 Appointment: María Elena Appiah WPtel: [address] [place] [address] ACUTE ILLNESS 11/21/2012 Patient Education: Patient Medication Summary Completed 11/21/2012 Appointment: María Elena Appiah WPtel: [address] [place] [address] BP CHECK 11/07/2012 Patient Education: Patient Medication [...] re-check. 10/29/2012 Appointment: Lashawn Eckert WPtel: [address] [place] [address] ACUTE ILLNESS 10/29/2012 Patient Education: Patient Medication Summary Completed 10/29/2012 Appointment: María Elena Appiah WPtel: [address] [place], [place] [phone] ACUTE ILLNESS 10/14/2012 Patient Education: Patient Medication Summary Completed 10/14/2012 Appointment: María Elena Appiah: [address] [place], [place] [id number] UA 09/27/2012 Patient Education: Patient Medication Summary Completed 09/27/2012 Appointment: María Elena Appiah WPtel: [address] [place], [place] [phone] ACUTE ILLNESS 09/25/2012 Patient Education: Patient Medication Summary Completed 09/25/2012 Appointment: María Elena Appiah WPtel: [address] [place], [place] [phone] BP CHECK 09/24/2012 Appointment: María Elena Appiah WPtel: [address] [place], [place] [phone] ACUTE ILLNESS 08/29/2012 Patient Education: Patient Medication Summary Completed 08/29/2012 Visit Plan: Cryotherapy as above See Karlos m for right ear lesion--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 ACUTE ILLNESS 05/06/2012 Patient Education: Patient Medication Summary Completed 05/06/2012 Visit Plan: Pt wants to hold on any furt her sleep medications 04/03/2012 Appointment: María Elena Appiah WPtel: [address] [place], [place] [phone] FOLLOW UP 04/03/2012 Patient Education: Patient Medication Summary Completed 04/03/2012 Appointment: María Elena Appiah WPtel: [address] [place] [address] FOLLOW UP 03/19/2012 Patient Education: Patient Medication Summary Completed 03/19/2012 Appointment: María Elena Appiahtel: [address] [place] [address] BP CHECK 02/22/2012 Patient Education: Patient Medication Summary Completed 02/22/2012 Appointment: María Elena Appiahtel: [address] [place] [address] BP CHECK 02/21/2012 Patient Education: Patient Medication Summary Completed 02/21/2012 Visit Plan: Doxycycline and bactroban fo r foot Supportive care on ankles and knees Add norvasc for BP 02/20/2012 Appointment: María Elena Appiahtel: [address] [place] [address] ER Follow UP 02/20/2012 Patient Education: Patient Medication Summary Completed 02/20/2012 Appointment: María Elena Appiahtel: [address] [place] [address] ACUTE ILLNESS 01/30/2012 Patient Education: Patient Medication Summary Completed 01/30/2012 Appointment: María Elena Appiahtel: [address] [place] [address] ACUTE ILLNESS 01/24/2012 Patient Education: Patient Medication Summary Completed 01/24/2012 Visit Plan: Daily back stretches, moist heat, Biofreeze prn OMT done 01/10/2012 Appointment: María Elena Appiahtel: [address] [place] [address] ACUTE ILLNESS 01/10/2012 Patient Education: Patient Medication Summary Completed 01/10/2012 Appointment: María Elena Appiahtel: [address] [place] [address] FOLLOW UP 12/11/2011 Patient Education: Patient Medication Summary Completed 12/11/2011 Appointment: María Elena Appiahtel: [address] [place], [place] [id number] ACUTE ILLNESS 11/09/2011 Patient Education: Patient Medication Summary Completed 11/09/2011 Appointment: María Elena Appiah WPtel: [address] [place] [address] ACUTE ILLNESS 09/13/2011 Patient Education: Patient Medication Summary Completed 09/13/2011 Visit Plan: Check CBC, TSH, Free T4, CMP , ESR, Vit D, B12 now Start Prednisone today 08/31/2011 Appointment: María Elena Appiah WPtel: [address] [place] [address] ACUTE ILLNESS 08/31/2011 Patient Education: Patient Medication Summary Completed 08/31/2011 Appointment: María Elena Appiah WPtel: [address] [place] [address] [place] INJECTION 07/20/2011 Patient Education: Patient Medication Summary Completed 07/20/2011 Visit Plan: Continue current meds Monite r BP Cont stretches from PT 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 07/06/2011 Appointment: María Elena Appiah WPtel: [address] [place] [address] FOLLOW UP 07/06/2011 Patient Education: Patient Medication Summary Completed 07/06/2011 Appointment: María Elena Appiah WPtel: [address] [place] [address] BP CHECK 06/06/2011 Patient Education: Patient Medication Summary Completed 06/06/2011 Visit Plan: Add Bystolic at 2.5mg QAM Ad d Robaxin 750mg 2 po q HS BP check in 2wks 05/22/2011 Appointment: María Elena Appiah WPtel: [address] [place] [address] FOLLOW UP 05/22/2011 Patient Education: Patient Medication Summary Completed 05/22/2011 Appointment: María Elena Appiah WPtel: [address] [place] [address] ER Follow UP 05/09/2011 Patient Education: Patient Medication Summary Completed 05/09/2011 Appointment: María Elena Appiah WPtel: [address] [place] [address] FOLLOW UP 02/22/2011 Visit Plan: Rx written for Hydrocodone 1 0/325mg #240 See Ortho 02/14/2011 Appointment: María Elena Appiah WPtel: [address] [place] [address] OMT 02/14/2011 Patient Education: Patient Medication Summary [...] work. 02/03/2011 Appointment: Lashawn Eckert WPtel: [address] [place] [address] ACUTE ILLNESS 02/03/2011 Patient Education: Patient Medication Summary Completed 02/03/2011 Visit Plan: OMT done Cont daily stretche s 01/31/2011 Appointment: María Elena Appiah WPtel: [address] [place] [address] ACUTE ILLNESS 01/31/2011 Patient Education: Patient Medication Summary Completed 01/31/2011 Visit Plan: Continue pain meds OMT done Proceed with PT No work this summer01/25/2011 Appointment: María Elena Appiah WPtel: [address] [place] [address] ACUTE ILLNESS 01/25/2011 Patient Education: Patient Medication Summary Completed 01/25/2011 Visit Plan: Start PT Long discussion abo ut getting pain meds from only us and can only have max of 4grams of tylenol per day Change to Hydrocodone 10/325mg 1- 2 po TID prn pain--#180 called to [facility] 01/18/2011 Appointment: María Elena Appiahtel: [address] [place] [address] FOLLOW UP 01/18/2011 Patient Education: Patient Medication Summary Completed 01/18/2011 Visit Plan: Daily back stretches, moist heat, Biofreeze prn 11/29/2010 Appointment: María Elena Appiah WPtel: [address] [place] [address] ER Follow UP 11/29/2010 Patient Education: Patient Medication Summary Completed 11/29/2010 Visit Plan: Saline nasal flushes prn. Ty lenol/Motrin prn headache. Notify if persists/symptoms worsening. Finish augmentin Add Medrol Dose Pack 10/10/2010 Appointment: María Elena Appiah WPtel: [address] [place] [address] ACUTE ILLNESS 10/10/2010 Patient Education: Patient Medication Summary Completed 10/10/2010 Visit Plan: Cryotherapy x3 to multiple l esions on both forearms 07/19/2010 Appointment: María Elena Appiah WPtel: [address] [place] [address] OFFICE SURGERY 07/19/2010 Patient Education: Patient Medication Summary Completed 07/19/2010 Appointment: María Elena Appiahtel: [address] [place] [address] BP CHECK 07/06/2010 Patient Education: Patient Medication Summary Completed 07/06/2010 Appointment: María Elena Appiah WPtel: [address] [place] [address] BP CHECK 06/30/2010 Patient Education: Patient Medication Summary Completed 06/30/2010 Appointment: María Elena Appiah WPtel: [address] [place] [address] BP CHECK 06/20/2010 Patient Education: Patient Medication Summary Completed 06/20/2010 Visit Plan: Change Diovan to Exforge 160 /5mg QD OMT done to thoracics BP check in 2wks 06/07/2010 Appointment: María Elena Appiah WPtel: [address] [place] [address] FOLLOW UP 06/07/2010 Patient Education: Patient Medication Summary Completed 06/07/2010 Appointment: María Elena Appiah WPtel: [address] [place] [address] BP CHECK 06/03/2010 Patient Education: Patient Medication Summary Completed 06/03/2010 Appointment: María Elena Appiah WPtel: [address] [place] [address] BP CHECK 06/01/2010 Patient Education: Patient Medication Summary Completed 06/01/2010 Visit Plan: Irritated skin tags to left neck x2 excised at base with scissors and base cauterized 05/30/2010 Appointment: María Elena Appiah WPtel: [address] [place] [address] OFFICE SURGERY 05/30/2010 Patient Education: Patient Medication Summary Completed 05/30/2010 Visit Plan: Saline nasal flushes prn. Ty lenol/Motrin prn headache. Notify if persists/symptoms worsening. Restart Nasonex Has allergy testing set for May 25 04/27/2010 Appointment: María Elena Appiah WPtel: [address] [place] [address] ACUTE ILLNESS 04/27/2010 Patient Education: Patient Medication Summary Completed 04/27/2010 Visit Plan: Saline nasal flushes prn. Ty lenol/Motrin prn headache. Notify if persists/symptoms worsening. Omnaris BID plus injections 04/05/2010 Appointment: María Elena Appiah WPtel: [address] [place] [address] ACUTE ILLNESS 04/05/2010 Patient Education: Patient Medication Summary Completed 04/05/2010 Visit Plan: Saline nasal flushes prn. Ty lenol/Motrin prn headache. Notify if persists/symptoms worsening. 03/09/2010 Appointment: María Elena Appiah WPtel: [address] [place] [address] ACUTE ILLNESS 03/09/2010 Patient Education: Patient Medication Summary Completed 03/09/2010 Visit Plan: Cont Clonidine as is Cont Pr emarin Fwup with surgery as scheduled 03/03/2010 Appointment: María Elena Appiah WPtel: [address] [place] [address] FOLLOW UP 03/03/2010 Patient Education: Patient Medication Summary Completed 03/03/2010 Visit Plan: Check Pelvic US now Chelsey Sal C vs Hysterectomy 01/17/2010 Appointment: María Elena Appiah WPtel: [address] [place] [address] ACUTE ILLNESS 01/17/2010 Patient Education: Patient Medication Summary Completed 01/17/2010 Visit Plan: Check fasting lab and schedu le Mammogram 2gm Na Diet Trial of Ambien 10mg qhs Fwup pending lab results 12/27/2009 Appointment: María Elena Appiah WPtel: [address] [place] [address] ESTABLISHED PATIENT 12/27/2009 Patient Education: Patient Medication Summary Completed 12/27/2009 Referral: Canelo Overton WPtel: [address] [place] [address] [place] Referral Initiated Referral: Philipp Flores WPtel: [address] [id number] [place] Referral Appointment Requested Instructions Comment . [...]
--- OUTSIDE RECORDS SUMMARY | 2020-03-13 06:05 | XMS REPORT | CCD ---
Author Author Gale Appiah D.O. 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 Name Role Phone María Elena Appiah D.O., PP Unavailable CCM Unavailable Summary Purpose Interface Exchange Insurance Providers Payer name Policy type / Coverage type Covered green party ID Effective Begin Date Effective End Date [facility] Commercial Insurance [id number] Unknown Family History Family History data not found Social History Social History Element Codes Description Effective Dates Tobacco history SNOMED CT: 742918037 Never smoker 05/22/2011 Allergies, Adverse Reactions, Alerts [...] Instructions duloxetine 60 mg capsule,delayed release RxNorm: 401258 1 Capsu le(s) Oral QD 10/17/2019 04/13/2020 Active lisinopril 20 mg tablet RxNorm: 654315 1 Tablet(s) Oral QD 10/17/19 20 04/13/2020 Active gabapentin 300 mg capsule RxNorm: 538801 1 Capsule(s) O ral every night at bedtime 10/17/2019 01/15/2020 Active Singulair 10 mg tablet RxNorm: 541979 1 Tablet(s) Oral QD 10/17/2019 04/14/2020 Active Klor-Con 8 mEq tablet,extended release RxNorm: 299601 1 Tablet(s) Oral two times a day 10/17/2019 11/16/2019 Active Januvia 100 mg tablet RxNorm: 782419 1 Tablet(s) Oral QD 10/17/2019 No Stop Date Active Steglatro 15 mg tablet RxNorm: 5126339 1 Tablet(s) Oral QD 10/17/19 20 No Stop Date Active Glyxambi 25 mg-5 mg tablet RxNorm: 4317443 1 Tablet(s) Oral QD 01/202010/16/2019 Inactive Patient will bring in copay discount card as well Glyxambi 25 mg-5 mg tablet RxNorm: 2377725 1 Tablet(s) Oral QD 01/202010/14/2019 Inactive Patient will bring in copay discount card as well Keflex 500 mg capsule RxNorm: 579061 1 Capsule(s) Oral two time s a day 10/07/2019 10/14/2019 Inactive Premarin 1.25 mg tablet RxNorm: 341898 1 Tablet(s) Oral QD 09/30/1906/25/2020 Active hydrocodone 10 mg-acetaminophen 325 mg tablet RxNorm: 828464 1-2 Tablet(s) Oral three times a day as needed for pain 09/30/2019 09/30/2019 Inactive baclofen 10 mg tablet RxNorm: 656580 TAKE ONE TABLET BY MOUTH THREE TIMES A DAY NEEDED 09/19/2019 No Stop Date Active gabapentin 300 mg capsule RxNorm: 198103 TAKE ONE CAPSU LE BY MOUTH EVERY NIGHT AT BEDTIME 09/19/2019 10/16/2019 Inactive Klor-Con 8 mEq tablet,extended release RxNorm: 839370 T FARRUKH ONE TABLET BY MOUTH TWICE A DAY 1 Tablet(s) Oral two times a day 09/19/2019 10/16/2019 [place] ct[place] hydrocodone 10 mg-acetaminophen 325 mg tablet RxNorm: 847765 1-2 Tablet(s) Oral three times a day as needed for pain 09/19/2019 09/29/2019 Inactive Lipitor 10 mg tablet RxNorm: 175834 TAKE ONE TABLET BY MOUTH AT BEDTIME 09/11/2019 No Stop Date Active triamterene 75 mg-hydrochlorothiazide 50 mg tablet RxNorm: 3 91549 TAKE ONE TABLET BY MOUTH DAILY 09/11/2019 No Stop Date Active allopurinol 300 mg tablet RxNorm: 658889 TAKE ONE TABLET BY LOPEZ TH DAILY 09/11/2019 No Stop Date Active celecoxib 200 mg capsule RxNorm: 457893 TAKE ONE CAPSUL E BY MOUTH TWICE A DAY NEEDED FOR PAIN 09/11/2019 No Stop Date Active clonidine HCl 0.1 mg tablet RxNorm: 831427 TAKE ONE TAB LET BY MOUTH FOUR TIMES A DAY 09/11/2019 No Stop Date Active duloxetine 60 mg capsule,delayed release RxNorm: 634190 TAKE ONE CAPSULE BY MOUTH DAILY 09/11/2019 10/16/2019 Inactive lisinopril 20 mg tablet RxNorm: 863345 TAKE ONE TABLET BY MOUTH DAILY .... THIS REPLACE 10MG TABLETS 09/11/2019 10/16/2019 Inactive doxepin 25 mg capsule RxNorm: 6972673 1 Capsule(s) Oral every night at bedtime as needed for sleep 08/21/2019 11/18/2019 Active hydrocodone 10 mg-acetaminophen 325 mg tablet RxNorm: 067492 1-2 Tablet(s) PO TID 08/12/2019 09/29/2019 Inactive as needed for pa in - Previous quantity #240, will start dosing for #180 in April 2011 per Doctor Td. Medrol (Dustin) 4 mg tablets in a dose pack RxNorm: 496516 Tablet(s) Oral As Directed 07/21/2019 09/29/2019 Inactive Premarin 1.25 mg tablet RxNorm: 500112 1 Tablet(s) Oral QD 07/02/2009/29/2019 Inactive hydrocodone 10 mg-acetaminophen 325 mg tablet RxNorm: 847505 1-2 Tablet(s) PO TID 07/01/2019 08/11/2019 Inactive as needed for pa in - Previous quantity #240, will start dosing for #180 in April 2011 per Doctor Td. gabapentin 300 mg capsule RxNorm: 021541 1 Capsule(s) PO QHS 201809/18/2019 Inactive celecoxib 200 mg capsule RxNorm: 974785 1 Capsule(s) Or al two times a day as needed for pain 06/27/2019 06/27/2019 Inactive furosemide 40 mg tablet RxNorm: 002708 TAKE ONE TABLET BY MOUTH EVERY MORNING NEEDED FOR EDEMA . TAKE WITH POTASSIUM 06/24/2019 No Stop Date Active doxepin 25 mg capsule RxNorm: 7157918 TAKE ONE CAPSULE B Y MOUTH EVERY NIGHT AT BEDTIME NEEDED FOR SLEEP 06/24/2019 08/20/2019 Inactive Singulair 10 mg tablet RxNorm: 107786 TAKE ONE TABLET BY MOUTH JOSÉ Y 06/24/2019 10/16/2019 Inactive lisinopril 20 mg tablet RxNorm: 416124 TAKE ONE TABLET BY MOUTH DAILY .... THIS REPLACE 10MG TABLETS 06/24/2019 09/10/2019 Inactive nystatin-triamcinolone 100,000 unit/g-0.1 % topical cream Rx Norm: 6302827 1 Application Topical two times a day 06/12/2019 06/19/2019 Inactive apply BID for 1 week nystatin-triamcinolone 100,000 unit/g-0.1 % topical cream Rx Norm: 2898301 1 Application Topical two times a day 06/12/2019 06/11/2019 Inactive apply BID for 1 week hydrocodone 10 mg-acetaminophen 325 mg tablet RxNorm: 175094 1-2 Tablet(s) PO QID as needed for pain MUST LAST 30 DAYS 05/28/2019 06/26/2019 Inactiv e (Response to an electronic controlled substance refill request - RxReferenceNumber: [id number]) baclofen 20 mg tablet RxNorm: 095200 1 Tablet(s) PO TID as needed for muscle spasm 05/19/2019 05/27/2019 Inactive gabapentin 300 mg capsule RxNorm: 587958 1 Capsule(s) PO QHS 201805/27/2019 Inactive lisinopril 20 mg tablet RxNorm: 077133 1 Tablet(s) PO Q D TAKE ONE TABLET BY MOUTH DAILY, REPLACES 10 MG DOSE 05/19/2019 06/23/2019 Inactive doxepin 25 mg capsule RxNorm: 3445925 TAKE ONE CAPSULE B Y MOUTH EVERY NIGHT AT BEDTIME NEEDED FOR SLEEP 05/16/2019 06/14/2019 Inactive lisinopril 20 mg tablet RxNorm: 949316 TAKE ONE TABLET BY MOUTH DAILY, REPLACES 10 MG DOSE 05/16/2019 05/18/2019 Inactive Singulair 10 mg tablet RxNorm: 493707 TAKE ONE TABLET BY MOUTH JOSÉ Y 05/16/2019 06/14/2019 Inactive gabapentin 300 mg capsule RxNorm: 457210 1 Capsule(s) PO QHS 201805/04/2019 Inactive estropipate 1.5 mg tablet RxNorm: 035596 1 Tablet(s) PO QD 05/05/2005/27/2019 Inactive estropipate 1.5 mg tablet RxNorm: 238433 1 Tablet(s) PO QD 05/05/20 19 05/04/2019 Inactive gabapentin 300 mg capsule RxNorm: 073322 1 Capsule(s) PO QHS 201805/18/2019 Inactive hydrocodone 10 mg-acetaminophen 325 mg tablet RxNorm: 516264 1-2 Tablet(s) PO QID as needed for pain MUST LAST 30 DAYS 04/25/2019 05/24/2019 Inactiv e (Response to an electronic controlled substance refill request - RxReferenceNumber: [id number]) metoprolol tartrate 100 mg tablet RxNorm: 527243 TAKE O NE TABLET BY MOUTH TWICE A DAY 04/24/2019 06/22/2019 Inactive cyclobenzaprine 10 mg tablet RxNorm: 664666 TAKE ONE TA BLET BY MOUTH THREE TIMES A DAY NEEDED FOR MUSCLE SPASMS 04/24/2019 05/18/2019 Inactive Lyrica 75 mg capsule RxNorm: 180969 1 Capsule(s) PO QHS 03/25/2019 Inactive duloxetine 60 mg capsule,delayed release RxNorm: 138683 TAKE ONE CAPSULE BY MOUTH DAILY 03/21/2019 05/19/2019 Inactive triamterene 75 mg-hydrochlorothiazide 50 mg tablet RxNorm: 3 91596 TAKE ONE TABLET BY MOUTH DAILY 03/21/2019 05/19/2019 Inactive Klor-Con 8 mEq tablet,extended release RxNorm: 714404 T FARRUKH ONE TABLET BY MOUTH TWICE A DAY 03/21/2019 09/18/2019 Inactive Lipitor 10 mg tablet RxNorm: 455627 TAKE ONE TABLET BY MOUTH AT BEDTIME 03/21/2019 09/10/2019 Inactive clonidine HCl 0.1 mg tablet RxNorm: 540861 TAKE ONE TAB LET BY MOUTH FOUR TIMES A DAY 03/21/2019 05/19/2019 Inactive allopurinol 300 mg tablet RxNorm: 213868 TAKE ONE TABLET BY LOPEZ TH DAILY 03/21/2019 05/19/2019 Inactive hydrocodone 10 mg-acetaminophen 325 mg tablet RxNorm: 550108 1-2 Tablet(s) PO QID as needed for pain MUST LAST 30 DAYS 02/28/2019 03/29/2019 Inactiv e (Response to an electronic controlled substance refill request - RxReferenceNumber: [id number]) furosemide 40 mg tablet RxNorm: 029410 TAKE ONE TABLET BY MOUTH EVERY MORNING NEEDED FOR EDEMA . TAKE WITH POTASSIUM 02/21/2019 03/22/2019 Inactive cyclobenzaprine 10 mg tablet RxNorm: 256240 TAKE ONE TA BLET BY MOUTH THREE TIMES A DAY NEEDED FOR MUSCLE SPASMS 02/21/2019 04/21/2019 Inactive lisinopril 20 mg tablet RxNorm: 923041 TAKE ONE TABLET BY MOUTH DAILY, REPLACES 10 MG DOSE 02/21/2019 05/15/2019 Inactive doxepin 25 mg capsule RxNorm: 5056452 TAKE ONE CAPSULE B Y MOUTH EVERY NIGHT AT BEDTIME NEEDED FOR SLEEP 02/21/2019 05/15/2019 Inactive nystatin 100,000 unit/gram topical cream RxNorm: 563474 APPLY TO AFFECTED AREA(S) TWO TIMES A DAY 02/21/2019 03/22/2019 Inactive estradiol 1 mg tablet RxNorm: 888501 2 Tablet(s) PO QD replaces premarin 01/22/2019 05/04/2019 Inactive lisinopril 20 mg tablet RxNorm: 260926 TAKE ONE TABLET BY MOUTH DAILY, REPLACES 10 MG DOSE 01/20/2019 02/18/2019 Inactive cyclobenzaprine 10 mg tablet RxNorm: 973550 TAKE ONE TA BLET BY MOUTH THREE TIMES A DAY NEEDED FOR MUSCLE SPASMS 01/20/2019 02/18/2019 Inactive metoprolol tartrate 100 mg tablet RxNorm: 142360 TAKE O NE TABLET BY MOUTH TWICE A DAY 01/20/2019 02/18/2019 Inactive cyclobenzaprine 10 mg tablet RxNorm: 829274 TAKE ONE TA BLET BY MOUTH THREE TIMES A DAY NEEDED FOR MUSCLE SPASMS 12/19/2018 01/17/2019 Inactive lisinopril 20 mg tablet RxNorm: 595186 TAKE ONE TABLET BY MOUTH DAILY, REPLACES 10 MG DOSE 12/19/2018 01/17/2019 Inactive duloxetine 60 mg capsule,delayed release RxNorm: 738366 TAKE ONE CAPSULE BY MOUTH DAILY 12/19/2018 01/17/2019 Inactive Lipitor 10 mg tablet RxNorm: 825747 TAKE ONE TABLET BY MOUTH AT BEDTIME 12/19/2018 01/17/2019 Inactive cyclobenzaprine 10 mg tablet RxNorm: 259865 1 Tablet(s) PO TID as needed for muscle spasm 11/19/2018 12/18/2018 Inactive Singulair 10 mg tablet RxNorm: 991928 1 Tablet(s) PO QD 11/19/2018 Inactive lisinopril 20 mg tablet RxNorm: 799355 TAKE ONE TABLET BY MOUTH DAILY, REPLACES 10 MG DOSE 11/15/2018 12/18/2018 Inactive hydrocodone 10 mg-acetaminophen 325 mg tablet RxNorm: 303263 1-2 Tablet(s) PO QID as needed for pain MUST LAST 30 DAYS 11/13/2018 12/12/2018 Inactiv e (Response to an electronic controlled substance refill request - RxReferenceNumber: [id number]) nystatin 100,000 unit/gram topical cream RxNorm: 790582 APPLY TO AFFECTED AREA(S) TWO TIMES A DAY 10/23/2018 11/06/2018 Inactive lisinopril 20 mg tablet RxNorm: 791178 1 Tablet(s) PO QD replac es 10mg dose 10/18/2018 11/14/2018 Inactive hydrocodone 10 mg-acetaminophen 325 mg tablet RxNorm: 929302 1-2 Tablet(s) QID as needed for pain MUST LAST 30 DAYS 10/08/2018 11/06/2018 Inactive (Response to an electronic controlled substance refill request - RxReferenceNumber: [id number]) lisinopril 10 mg tablet RxNorm: 736408 1 Tablet(s) PO QD 10/03/2018 0 01/21/2019 Inactive Celebrex 200 mg capsule RxNorm: 629907 TAKE ONE CAPSULE BY MOUT H TWICE A DAY 09/30/2018 05/04/2019 Inactive cyclobenzaprine 10 mg tablet RxNorm: 528181 TAKE ONE TA BLET BY MOUTH THREE TIMES A DAY NEEDED FOR MUSCLE SPASMS 09/30/2018 11/18/2018 Inactive doxepin 25 mg capsule RxNorm: 7115221 TAKE ONE CAPSULE B Y MOUTH EVERY NIGHT AT BEDTIME NEEDED 09/05/2018 10/16/2018 Inactive omeprazole 40 mg capsule,delayed release RxNorm: 697607 TAKE ONE CAPSULE BY MOUTH DAILY 09/05/2018 01/21/2019 Inactive furosemide 40 mg tablet RxNorm: 389877 TAKE ONE TABLET BY MOUTH EVERY MORNING NEEDED FOR EDEMA . TAKE WITH POTASSIUM 09/05/2018 11/03/2018 Inactive phentermine 37.5 mg tablet RxNorm: 714126 1 Tablet(s) PO QAM 201701/21/2019 Inactive doxepin 25 mg capsule RxNorm: 4475906 1 Capsule(s) PO QH S as needed for sleep TAKE ONE CAPSULE BY MOUTH EVERY NIGHT AT BEDTIME NEEDED 08/27/2018 09/04/2018 Inactive Keflex 500 mg capsule RxNorm: 286000 1 Capsule(s) PO TID 08/09/2018 1 10/19/2017 Inactive Diflucan 100 mg tablet RxNorm: 850101 1 Tablet(s) PO QD 08/09/2018 Inactive Premarin 1.25 mg tablet RxNorm: 113329 2 Tablet(s) PO QD 08/09/2018 0 05/04/2019 Inactive Zofran ODT 4 mg disintegrating tablet RxNorm: 643836 1 Tablet(s) PO Q4H as needed for nausea 08/09/2018 01/21/2019 Inactive metoprolol tartrate 100 mg tablet RxNorm: 312471 TAKE O NE TABLET BY MOUTH TWICE A DAY 2018 10/04/2018 Inactive doxepin 25 mg capsule RxNorm: 1483341 TAKE ONE CAPSULE B Y MOUTH EVERY NIGHT AT BEDTIME NEEDED 2018 08/26/2018 Inactive cyclobenzaprine 10 mg tablet RxNorm: 274487 TAKE ONE TA BLET BY MOUTH THREE TIMES A DAY NEEDED FOR MUSCLE SPASMS 2018 09/29/2018 Inactive hydrocodone 10 mg-acetaminophen 325 mg tablet RxNorm: 751923 1-2 Tablet(s) QID as needed for pain MUST LAST 30 DAYS 07/29/2018 08/27/2018 Inactive (Response to an electronic controlled substance refill request - RxReferenceNumber: [id number]) nystatin 100,000 unit/gram topical powder RxNorm: 357381 Applic ation TOP BID 07/22/2018 08/04/2018 Inactive doxepin 25 mg capsule RxNorm: 5196926 1 Capsule(s) PO QHS as needed 07/22/2018 08/05/2018 Inactive triamterene 75 mg-hydrochlorothiazide 50 mg tablet RxNorm: 3 18351 TAKE ONE TABLET BY MOUTH DAILY 07/05/2018 10/02/2018 Inactive duloxetine 60 mg capsule,delayed release RxNorm: 207287 TAKE ONE CAPSULE BY MOUTH DAILY 07/05/2018 09/02/2018 Inactive Klor-Con 8 mEq tablet,extended release RxNorm: 919108 T FARRUKH ONE TABLET BY MOUTH TWICE A DAY 07/05/2018 10/02/2018 Inactive Lipitor 10 mg tablet RxNorm: 101749 TAKE ONE TABLET BY MOUTH AT BEDTIME 07/05/2018 09/02/2018 Inactive allopurinol 300 mg tablet RxNorm: 587678 TAKE ONE TABLET BY LOPEZ TH DAILY 07/05/2018 10/02/2018 Inactive clonidine HCl 0.1 mg tablet RxNorm: 250292 TAKE ONE TAB LET BY MOUTH FOUR TIMES A DAY 07/05/2018 10/02/2018 Inactive hydrocodone 10 mg-acetaminophen 325 mg tablet RxNorm: 803022 1-2 Tablet(s) QID as needed for pain MUST LAST 30 DAYS 06/28/2018 07/27/2018 Inactive (Response to an electronic controlled substance refill request - RxReferenceNumber: [id number]) MediHoney (calcium alginate-honey) 4" X 5" bandage RxNorm: 1 Application TOP QD 06/17/2018 06/26/2018 Inactive honey-hydrocolloid dressing 4" X 5" RxNorm: 1 Application TOP QD 06/17/2018 07/16/2018 Inactive furosemide 40 mg tablet RxNorm: 098337 TAKE ONE TABLET BY MOUTH EVERY MORNING NEEDED FOR EDEMA . TAKE WITH POTASSIUM 06/10/2018 07/09/2018 Inactive This is a refill request. hydrocodone 10 mg-acetaminophen 325 mg tablet RxNorm: 724607 1-2 Tablet(s) QID as needed for pain MUST LAST 30 DAYS 05/30/2018 06/27/2018 Inactive (Response to an electronic controlled substance refill request - RxReferenceNumber: [id number]) acyclovir 800 mg tablet RxNorm: 711326 1 Tablet(s) PO 5x day 201705/22/2018 Inactive Premarin 1.25 mg tablet RxNorm: 389983 1-2 Tablet(s) PO QD 05/15/20 18 07/13/2018 Inactive cyclobenzaprine 10 mg tablet RxNorm: 669507 1 Tablet(s) PO TID as needed for muscle spasm 05/09/2018 05/08/2018 Inactive Medrol (Dustin) 4 mg tablets in a dose pack RxNorm: 960477 Tablet(s) PO As Directed 05/02/2018 06/16/2018 Inactive hydrocodone 10 mg-acetaminophen 325 mg tablet RxNorm: 144846 1-2 Tablet(s) QID as needed for pain MUST LAST 30 DAYS 04/30/2018 05/29/2018 Inactive (Response to an electronic controlled substance refill request - RxReferenceNumber: [id number]) duloxetine 60 mg capsule,delayed release RxNorm: 611244 TAKE ONE CAPSULE BY MOUTH DAILY 04/16/2018 05/15/2018 Inactive Celebrex 200 mg capsule RxNorm: 408266 TAKE ONE CAPSULE BY MOUT H TWICE A DAY 04/16/2018 06/14/2018 Inactive Singulair 10 mg tablet RxNorm: 699594 TAKE ONE TABLET BY MOUTH JOSÉ Y 04/16/2018 11/19/2018 Inactive Lipitor 10 mg tablet RxNorm: 684879 TAKE ONE TABLET BY MOUTH AT BEDTIME 04/16/2018 05/15/2018 Inactive hydrocodone 10 mg-acetaminophen 325 mg tablet RxNorm: 056082 1-2 Tablet(s) QID as needed for pain MUST LAST 30 DAYS 03/29/2018 04/27/2018 Inactive (Response to an electronic controlled substance refill request - RxReferenceNumber: [id number]) cyclobenzaprine 10 mg tablet RxNorm: 127305 1 Tablet(s) PO TID as needed for muscle spasm 03/18/2018 05/09/2018 Inactive omeprazole 40 mg capsule,delayed release RxNorm: 407200 1 Capsu le(s) PO QD 02/26/2018 08/24/2018 Inactive hydrocodone 10 mg-acetaminophen 325 mg tablet RxNorm: 043183 1-2 Tablet(s) QID as needed for pain MUST LAST 30 DAYS 02/26/2018 03/27/2018 Inactive (Response to an electronic controlled substance refill request - RxReferenceNumber: [id number]) metoprolol tartrate 100 mg tablet RxNorm: 304728 1 Tablet(s) PO BID 02/18/2018 08/05/2018 Inactive Lyrica 75 mg capsule RxNorm: 879653 1 Capsule(s) PO QHS 01/30/2018 Inactive phentermine 37.5 mg tablet RxNorm: 527272 1 Tablet(s) PO QAM 201706/16/2018 Inactive hydrocodone 10 mg-acetaminophen 325 mg tablet RxNorm: 594192 1-2 Tablet(s) QID as needed for pain MUST LAST 30 DAYS 01/29/2018 02/25/2018 Inactive (Response to an electronic controlled substance refill request - RxReferenceNumber: [id number]) Klor-Con 8 mEq tablet,extended release RxNorm: 539283 1 Tablet( s) PO BID 01/14/2018 07/04/2018 Inactive allopurinol 300 mg tablet RxNorm: 977736 1 Tablet(s) PO QD 01/15/20 18 07/04/2018 Inactive Lipitor 10 mg tablet RxNorm: 975418 1 Tablet(s) PO QHS 01/14/201812/2017 Inactive triamterene 75 mg-hydrochlorothiazide 50 mg tablet RxNorm: 3 89078 1 Tablet(s) PO QD 01/14/2018 07/04/2018 Inactive hydrocodone 10 mg-acetaminophen 325 mg tablet RxNorm: 259908 1-2 Tablet(s) QID as needed for pain MUST LAST 30 DAYS 12/27/2017 01/25/2018 Inactive (Response to an electronic controlled substance refill request - RxReferenceNumber: [id number]) Onglyza 5 mg tablet RxNorm: 615588 1 Tablet(s) PO QD 12/18/201701/29 Inactive metformin 500 mg tablet RxNorm: 727884 1 Tablet(s) PO BID 12/11/2017 12/10/2017 Inactive metformin 500 mg tablet RxNorm: 884969 1 Tablet(s) PO BID 12/11/2017 12/17/2017 Inactive furosemide 40 mg tablet RxNorm: 332101 1 Tablet(s) PO Q AM prn edema--take with potassium 12/11/2017 06/08/2018 Inactive cyclobenzaprine 10 mg tablet RxNorm: 357999 1 Tablet(s) PO TID as needed for muscle spasm 12/11/2017 03/18/2018 Inactive hydrocodone 10 mg-acetaminophen 325 mg tablet RxNorm: 300723 1-2 Tablet(s) QID as needed for pain MUST LAST 30 DAYS 10/23/2017 11/21/2017 Inactive (Response to an electronic controlled substance refill request - RxReferenceNumber: [id number]) Lipitor 10 mg tablet RxNorm: 171494 1 Tablet(s) PO QHS 10/16/201703/2018 Inactive cyclobenzaprine 10 mg tablet RxNorm: 330551 1 Tablet(s) PO TID as needed for muscle spasm 10/09/2017 12/10/2017 Inactive hydroxyzine HCl 25 mg tablet RxNorm: 692992 1 Tablet(s) PO BID as needed for anxiety 09/20/2017 01/29/2018 Inactive Effexor XR 75 mg capsule,extended release RxNorm: 297924 1 Caps ule(s) PO QD 09/20/2017 01/29/2018 Inactive metoprolol tartrate 100 mg tablet RxNorm: 595811 1 Tablet(s) PO BID 08/20/2017 02/18/2018 Inactive baclofen 20 mg tablet RxNorm: 209798 1 Tablet(s) PO TID as needed for muscle spasm 08/20/2017 01/21/2019 Inactive clonidine HCl 0.1 mg tablet RxNorm: 952454 1 Tablet(s) PO QID 08/2005/16/2018 Inactive Seroquel 25 mg tablet RxNorm: 555367 1 Tablet(s) PO QHS 08/17/2017 Inactive Seroquel 25 mg tablet RxNorm: 595310 1 Tablet(s) PO QHS 08/17/2017 Inactive Diflucan 100 mg tablet RxNorm: 435015 TAKE ONE TABLET BY MOUTH JOSÉ Y 07/25/2017 08/07/2017 Inactive hydrocodone 10 mg-acetaminophen 325 mg tablet RxNorm: 888220 1-2 Tablet(s) QID as needed for pain MUST LAST 30 DAYS 07/19/2017 08/17/2017 Inactive (Response to an electronic controlled substance refill request - RxReferenceNumber: [id number]) clindamycin 300 mg capsule RxNorm: 522162 1 Capsule(s) PO TID 07/1907/28/2017 Inactive clotrimazole-betamethasone 1 %-0.05 % topical cream RxNorm: 033915 Application TOP BID to elbow rash 07/19/2017 06/16/2018 Inactive Singulair 10 mg tablet RxNorm: 241676 Tablet(s) TAKE ONE TABLET BY MOUTH DAILY 07/18/2017 04/13/2018 Inactive triamterene 75 mg-hydrochlorothiazide 50 mg tablet RxNorm: 3 86802 1 Tablet(s) PO QD 07/18/2017 01/14/2018 Inactive Celebrex 200 mg capsule RxNorm: 056385 Capsule(s) TAKE ONE CAPSULE BY MOUTH TWICE A DAY 07/18/2017 10/15/2017 Inactive hydrocodone 10 mg-acetaminophen 325 mg tablet RxNorm: 717853 1-2 Tablet(s) QID as needed for pain MUST LAST 30 DAYS 06/19/2017 07/18/2017 Inactive (Response to an electronic controlled substance refill request - RxReferenceNumber: [id number]) hydrocodone 10 mg-acetaminophen 325 mg tablet RxNorm: 449379 1-2 Tablet(s) QID as needed for pain MUST LAST 30 DAYS 06/19/2017 06/18/2017 Inactive (Response to an electronic controlled substance refill request - RxReferenceNumber: [id number]) baclofen 20 mg tablet RxNorm: 662839 1 Tablet(s) PO TID as needed for muscle spasm 06/18/2017 08/20/2017 Inactive Medrol (Dustin) 4 mg tablets in a dose pack RxNorm: 792349 Tablet(s) PO As Directed 06/05/2017 07/18/2017 Inactive omeprazole 40 mg capsule,delayed release RxNorm: 448942 1 Capsu le(s) PO QD 04/20/2017 10/16/2017 Inactive Premarin 1.25 mg tablet RxNorm: 285056 1-2 Tablet(s) PO QD 04/11/20 17 05/15/2018 Inactive duloxetine 60 mg capsule,delayed release RxNorm: 241097 1 Capsu le(s) PO QD 04/11/2017 09/19/2017 Inactive furosemide 40 mg tablet RxNorm: 799455 1 Tablet(s) PO Q AM prn edema--take with potassium 04/11/2017 12/11/2017 Inactive Klor-Con 8 mEq tablet,extended release RxNorm: 442825 1 Tablet( s) PO BID 04/11/2017 01/14/2018 Inactive Lipitor 10 mg tablet RxNorm: 193302 1 Tablet(s) PO QHS 04/11/201702/2018 Inactive amlodipine 5 mg-benazepril 20 mg capsule RxNorm: 474679 1 Capsu le(s) PO QD 04/11/2017 01/29/2018 Inactive allopurinol 300 mg tablet RxNorm: 998568 1 Tablet(s) PO QD 04/11/20 17 01/14/2018 Inactive clonidine HCl 0.1 mg tablet RxNorm: 945340 1 Tablet(s) PO QID 04/0508/19/2017 Inactive baclofen 20 mg tablet RxNorm: 262732 1 Tablet(s) PO TID as needed for muscle spasm 04/02/2017 06/18/2017 Inactive Premarin 1.25 mg tablet RxNorm: 324244 1-2 Tablet(s) PO QD 03/20/20 17 04/10/2017 Inactive hydrocodone 10 mg-acetaminophen 325 mg tablet RxNorm: 636074 1-2 Tablet(s) QID as needed for pain MUST LAST 30 DAYS 03/14/2017 01/21/2019 Inactive (Response to an electronic controlled substance refill request - RxReferenceNumber: [id number]) metoprolol tartrate 100 mg tablet RxNorm: 062771 1 Tablet(s) PO BID 02/12/2017 08/20/2017 Inactive hydrocodone 10 mg-acetaminophen 325 mg tablet RxNorm: 764144 1-2 Tablet(s) QID as needed for pain MUST LAST 30 DAYS 02/08/2017 03/09/2017 Inactive (Response to an electronic controlled substance refill request - RxReferenceNumber: [id number]) metoprolol tartrate 100 mg tablet RxNorm: 490033 TAKE O NE TABLET BY MOUTH TWICE A DAY 01/11/2017 02/12/2017 Inactive metoprolol tartrate 100 mg tablet RxNorm: 244593 1 Tablet(s) PO BID 12/18/2016 12/17/2016 Inactive metoprolol tartrate 100 mg tablet RxNorm: 479470 1 Tablet(s) PO BID 12/18/2016 01/10/2017 Inactive furosemide 40 mg tablet RxNorm: 775854 1 Tablet(s) PO Q AM prn edema--take with potassium 12/13/2016 02/10/2017 Inactive amitriptyline 100 mg tablet RxNorm: 005834 1 Tablet(s) PO QHS 11/2812/12/2016 Inactive baclofen 20 mg tablet RxNorm: 145161 1 Tablet(s) PO TID as needed for muscle spasm 11/14/2016 04/01/2017 Inactive triamterene 75 mg-hydrochlorothiazide 50 mg tablet RxNorm: 3 56066 1 Tablet(s) PO QD 11/14/2016 11/13/2016 Inactive metolazone 2.5 mg tablet RxNorm: 900409 TAKE ONE TABLET BY MOUTH DAILY NEEDED FOR EDEMA 11/14/2016 12/12/2016 Inactive triamterene 75 mg-hydrochlorothiazide 50 mg tablet RxNorm: 3 97830 1 Tablet(s) PO QD 11/14/2016 07/18/2017 Inactive amitriptyline 50 mg tablet RxNorm: 461560 TAKE ONE TABL ET BY MOUTH AT BEDTIME NEEDED FOR SLEEP 11/14/2016 11/27/2016 Inactive Cymbalta 60 mg capsule,delayed release RxNorm: 557681 1 Capsule (s) PO QHS 11/14/2016 12/12/2016 Inactive clonidine HCl 0.1 mg tablet RxNorm: 481617 1 Tablet(s) PO QID 11/1304/04/2017 Inactive amitriptyline 50 mg tablet RxNorm: 201164 1 Tablet(s) P O QHS as needed for sleep 11/01/2016 11/27/2016 Inactive duloxetine 60 mg capsule,delayed release RxNorm: 132851 TAKE ONE CAPSULE BY MOUTH DAILY 10/20/2016 01/17/2017 Inactive allopurinol 300 mg tablet RxNorm: 945322 TAKE ONE TABLET BY LOPE[facility] TH DAILY 10/20/2016 01/16/2017 Inactive Lyrica 75 mg capsule RxNorm: 626824 TAKE ONE CAPSULE BY MOUTH EVERY NIGHT AT BEDTIME 10/20/2016 12/10/2016 Inactive Klor-Con 8 mEq tablet,extended release RxNorm: 784783 T FARRUKH ONE TABLET BY MOUTH TWICE A DAY 10/20/2016 01/17/2017 Inactive Celebrex 200 mg capsule RxNorm: 662422 TAKE ONE CAPSULE BY MOUT H TWICE A DAY 10/20/2016 07/18/2017 Inactive Bystolic 10 mg tablet RxNorm: 375558 TAKE ONE TABLET BY MOUTH EVERY NIGHT AT BEDTIME 10/20/2016 12/17/2016 Inactive amlodipine 5 mg-benazepril 20 mg capsule RxNorm: 863050 TAKE ONE CAPSULE BY MOUTH EVERY NIGHT AT BEDTIME -- TO REPLACE AMLODOPINE 10/20/20162016 Inactive Lipitor 10 mg tablet RxNorm: 801863 TAKE ONE TABLET BY MOUTH EVERY NIGHT AT BEDTIME 10/20/2016 01/17/2017 Inactive alprazolam 0.5 mg tablet RxNorm: 953335 3 Tablet(s) PO QHS as needed for sleep/anxiety 09/20/2016 10/31/2016 Inactive Tamiflu 75 mg capsule RxNorm: 063613 1 Capsule(s) PO QD 09/19/2016 Inactive Lyrica 75 mg capsule RxNorm: 107685 1 Capsule(s) PO QHS 09/19/2016 Inactive prednisone 20 mg tablet RxNorm: 208202 1 Tablet(s) PO QD 08/10/2016 1 10/17/2015 Inactive doxycycline hyclate 100 mg capsule RxNorm: 0854762 1 Capsule(s) PO BID 08/10/2016 08/19/2016 Inactive Medrol (Dustin) 4 mg tablets in a dose pack RxNorm: 296762 Tablet(s) PO As Directed 07/31/2016 08/22/2016 Inactive Singulair 10 mg tablet RxNorm: 801788 TAKE ONE TABLET BY MOUTH JOSÉ Y 07/27/2016 07/18/2017 Inactive hydrocodone 10 mg-acetaminophen 325 mg tablet RxNorm: 446849 1-2 Tablet(s) QID as needed for pain MUST LAST 30 DAYS 07/26/2016 08/24/2016 Inactive (Response to an electronic controlled substance refill request - RxReferenceNumber: [id number]) alprazolam 0.5 mg tablet RxNorm: 735160 3 Tablet(s) PO QHS as needed for anxiety or sleep 07/26/2016 09/20/2016 Inactive clindamycin 300 mg capsule RxNorm: 752307 1 Capsule(s) PO TID 07/2007/29/2016 Inactive Diflucan 100 mg tablet RxNorm: 893560 1 Tablet(s) PO QD 07/20/2016 Inactive Levaquin 500 mg tablet RxNorm: 885650 1 Tablet(s) PO QD 07/17/2016 Inactive Levaquin 500 mg tablet RxNorm: 860611 1 Tablet(s) PO QD 07/10/2016 Inactive Levaquin 500 mg tablet RxNorm: 786784 1 Tablet(s) PO QD 07/10/2016 Inactive mupirocin 2 % topical ointment RxNorm: 622980 TOP Apply topically to affected areas twice daily 07/06/2016 09/18/2016 Inactive Singulair 10 mg tablet RxNorm: 424611 TAKE ONE TABLET BY MOUTH JOSÉ Y 06/21/2016 01/21/2019 Inactive alprazolam 0.5 mg tablet RxNorm: 665139 TAKE THREE TABL ETS BY MOUTH AT BEDTIME NEEDED FOR SLEEP OR STRESS 05/22/2016 06/20/2016 Inactive triamterene 75 mg-hydrochlorothiazide 50 mg tablet RxNorm: 3 14730 1 Tablet(s) PO QD 04/26/2016 10/21/2016 Inactive Premarin 1.25 mg tablet RxNorm: 972182 1-2 Tablet(s) PO QD 04/26/2003/20/2017 Inactive Klor-Con 8 mEq tablet,extended release RxNorm: 418545 1 Tablet( s) PO BID 04/26/2016 10/19/2016 Inactive Celebrex 200 mg capsule RxNorm: 294761 1 Capsule(s) PO BID TAKE ONE CAPSULE BY MOUTH EVERY DAY 04/26/2016 10/19/2016 Inactive Lipitor 10 mg tablet RxNorm: 293308 1 Tablet(s) PO QHS 04/26/201605/2017 Inactive allopurinol 300 mg tablet RxNorm: 298816 1 Tablet(s) PO QD TAKE ONE TABLET BY MOUTH EVERY DAY 04/26/2016 10/19/2016 Inactive amlodipine 5 mg-benazepril 20 mg capsule RxNorm: 443245 1 Capsule(s) PO QHS replaces amlodopine 04/26/2016 10/19/2016 Inactive duloxetine 60 mg capsule,delayed release RxNorm: 027452 1 Capsu le(s) PO QD 04/26/2016 10/19/2016 Inactive Bystolic 10 mg tablet RxNorm: 514578 1 Tablet(s) PO QHS 04/26/2016 Inactive Singulair 10 mg tablet RxNorm: 137334 1 Tablet(s) PO QD TAKE ONE TABLET BY MOUTH DAILY 04/26/2016 06/20/2016 Inactive clonidine HCl 0.1 mg tablet RxNorm: 043309 1 Tablet(s) PO QID 04/2610/22/2016 Inactive hydrocodone 10 mg-acetaminophen 325 mg tablet RxNorm: 321748 1-2 Tablet(s) QID as needed for pain TAKE ONE TO TWO TABLETS BY MOUTH FOUR TIMES A DAY . MUST LAST 30 DAYS 03/31/2016 04/29/2016 Inactive (Response to an electronic controlled substance refill request - [id number]) Klor-Con 8 mEq tablet,extended release RxNorm: 339470 T FARRUKH ONE TABLET BY MOUTH TWICE A DAY 03/24/2016 09/29/2019 Inactive prednisone 20 mg tablet RxNorm: 182691 1 Tablet(s) PO QD 03/09/2016 0 03/08/2016 Inactive prednisone 20 mg tablet RxNorm: 552993 1 Tablet(s) PO QD 03/09/2016 0 03/13/2016 Inactive alprazolam 0.5 mg tablet RxNorm: 638869 3 Tablet(s) PO QHS as needed for sleep/stress 03/02/2016 01/21/2019 Inactive mupirocin 2 % topical ointment RxNorm: 010092 TOP twice daily to affected areas of face and neck 02/21/2016 04/25/2016 Inactive clonidine HCl 0.1 mg tablet RxNorm: 787668 TAKE ONE TAB LET BY MOUTH FOUR TIMES A DAY 02/15/2016 09/29/2019 Inactive clonidine HCl 0.1 mg tablet RxNorm: 333437 1 Tablet(s) PO QID 02/1404/25/2016 Inactive Premarin 1.25 mg tablet RxNorm: 629457 1-2 Tablet(s) PO QD 02/15/20 16 03/15/2016 Inactive Klor-Con 8 mEq tablet,extended release RxNorm: 967963 T FARRUKH ONE TABLET BY MOUTH TWICE A DAY 02/15/2016 03/15/2016 Inactive potassium chloride ER 20 mEq tablet,extended release(part/cr yst) RxNorm: 936067 2 Tablet(s) PO BID 02/15/2016 03/15/2016 Inactive Macrobid 100 mg capsule RxNorm: 510151 1 Capsule(s) PO BID 01/24/20 16 01/30/2016 Inactive prednisone 20 mg tablet RxNorm: 973698 Take 3tabs PO QD x 2 days, then 2 tabs PO QD x 2 days, then 1 tab PO QD x 2 days, then 1/2 tab PO QDy x 2 days 12/23/2015 04/25/2016 Inactive Klor-Con 8 mEq tablet,extended release RxNorm: 802269 T FARRUKH ONE TABLET BY MOUTH TWICE A DAY 12/20/2015 02/14/2016 Inactive alprazolam 1 mg tablet RxNorm: 201433 1 1/2 Tablet(s) PO QHS 201501/23/2016 Inactive nystatin 100,000 unit/gram topical cream RxNorm: 586080 APPLY TO AFFECTED AREA(S) TWO TIMES A DAY 11/30/2015 12/14/2015 Inactive Singulair 10 mg tablet RxNorm: 187731 TAKE ONE TABLET BY MOUTH JOSÉ Y 11/18/2015 04/25/2016 Inactive allopurinol 300 mg tablet RxNorm: 975329 1 Tablet(s) PO QD TAKE ONE TABLET BY MOUTH EVERY DAY 10/26/2015 04/22/2016 Inactive Singulair 10 mg tablet RxNorm: 220311 TAKE ONE TABLET BY MOUTH JOSÉ Y 10/26/2015 11/17/2015 Inactive duloxetine 60 mg capsule,delayed release RxNorm: 538145 1 Capsu le(s) PO QD 10/26/2015 04/22/2016 Inactive triamterene 75 mg-hydrochlorothiazide 50 mg tablet RxNorm: 3 22402 1 Tablet(s) PO QD 10/26/2015 11/14/2016 Inactive potassium chloride ER 20 mEq tablet,extended release(part/cr yst) RxNorm: 574026 2 Tablet(s) PO BID 10/26/2015 02/14/2016 Inactive Lipitor 10 mg tablet RxNorm: 150586 1 Tablet(s) PO QHS 10/26/2015 Inactive amlodipine 5 mg-benazepril 20 mg capsule RxNorm: 594945 1 Capsule(s) PO QHS replaces amlodopine 10/26/2015 04/22/2016 Inactive Bystolic 10 mg tablet RxNorm: 117478 1 Tablet(s) PO QHS 10/26/2015 Inactive amlodipine 5 mg-benazepril 20 mg capsule RxNorm: 712980 1 Capsule(s) PO QHS replaces amlodopine 10/06/2015 10/25/2015 Inactive amlodipine 5 mg tablet RxNorm: 730818 1 Tablet(s) PO QHS 09/30/2015 0 04/25/2016 Inactive metolazone 2.5 mg tablet RxNorm: 032160 TAKE ONE TABLET BY MOUTH DAILY NEEDED FOR EDEMA 09/30/2015 01/21/2019 Inactive duloxetine 60 mg capsule,delayed release RxNorm: 771992 1 Capsu le(s) PO QD 09/30/2015 10/25/2015 Inactive cephalexin 500 mg capsule RxNorm: 525226 1 Capsule(s) PO BID 201509/23/2015 Inactive mupirocin 2 % topical ointment RxNorm: 373217 TOP twice daily to affected areas of face and neck 09/14/2015 02/20/2016 Inactive baclofen 20 mg tablet RxNorm: 292639 1 Tablet(s) PO TID as needed for muscle spasm 09/01/2015 11/14/2016 Inactive clonidine HCl 0.1 mg tablet RxNorm: 758816 1 Tablet(s) PO QID 09/0102/14/2016 Inactive alprazolam 1 mg tablet RxNorm: 247607 1 1/2 Tablet(s) PO QHS 201409/09/2015 Inactive baclofen 20 mg tablet RxNorm: 678547 1 Tablet(s) PO TID as needed for muscle spasm 07/23/2015 09/01/2015 Inactive omeprazole 40 mg capsule,delayed release RxNorm: 633956 1 Capsu le(s) PO QD 07/23/2015 04/25/2016 Inactive alprazolam 1 mg tablet RxNorm: 817172 1 1/2 Tablet(s) PO QHS 201408/10/2015 Inactive Bystolic 10 mg tablet RxNorm: 548458 1 Tablet(s) PO BID 06/24/2015 Inactive allopurinol 300 mg tablet RxNorm: 126569 1 Tablet(s) PO QD TAKE ONE TABLET BY MOUTH EVERY DAY 06/23/2015 10/20/2015 Inactive alprazolam 1 mg tablet RxNorm: 714396 1 1/2 Tablet(s) PO QHS 201407/06/2015 Inactive clonidine HCl 0.1 mg tablet RxNorm: 474488 1 Tablet(s) PO QID 06/0209/01/2015 Inactive clonidine HCl 0.1 mg tablet RxNorm: 228054 1 Tablet(s) PO QID 06/0206/01/2015 Inactive Cymbalta 60 mg capsule,delayed release RxNorm: 964821 1 Capsule (s) PO QHS 06/02/2015 08/30/2015 Inactive Cymbalta 60 mg capsule,delayed release RxNorm: 704740 1 Capsule (s) PO QHS 06/02/2015 06/01/2015 Inactive clonidine HCl 0.1 mg tablet RxNorm: 685233 1 Tablet(s) PO TID 05/3106/01/2015 Inactive replaces 0.2mg dose metolazone 2.5 mg tablet RxNorm: 903074 TAKE ONE TABLET BY MOUTH DAILY NEEDED FOR EDEMA 05/21/2015 06/19/2015 Inactive Singulair 10 mg tablet RxNorm: 034478 TAKE ONE TABLET BY MOUTH JOSÉ Y 05/21/2015 10/17/2015 Inactive Cymbalta 30 mg capsule,delayed release RxNorm: 946061 1 Capsule (s) PO QHS 05/20/2015 11/14/2016 Inactive betamethasone valerate 0.1 % topical cream RxNorm: 474337 Appli cation TOP BID 05/10/2015 04/25/2016 Inactive Bactroban 2 % topical ointment RxNorm: 502691 Application TOP BID 0 05/10/2015 06/20/2015 Inactive baclofen 20 mg tablet RxNorm: 533481 1 Tablet(s) PO TID as needed 0 04/26/2015 07/23/2015 Inactive Lipitor 10 mg tablet RxNorm: 333698 1 Tablet(s) PO QHS 04/26/201508/2016 Inactive clonidine HCl 0.1 mg tablet RxNorm: 513610 1 Tablet(s) PO TID 04/2605/30/2015 Inactive replaces 0.2mg dose Klor-Con 8 mEq tablet,extended release RxNorm: 700428 1 Tablet( s) PO BID 04/26/2015 04/25/2016 Inactive metolazone 2.5 mg tablet RxNorm: 154301 1 Tablet(s) PO QD as ne eded for edema 04/26/2015 04/25/2015 Inactive triamterene 75 mg-hydrochlorothiazide 50 mg tablet RxNorm: 3 64530 1 Tablet(s) PO QD 04/26/2015 10/22/2015 Inactive Premarin 1.25 mg tablet RxNorm: 126725 1-2 Tablet(s) PO QD 04/26/20 15 10/22/2015 Inactive Bystolic 10 mg tablet RxNorm: 874322 1 Tablet(s) PO QAM TAKE ONE TABLET BY MOUTH EVERY MORNING 04/23/2015 06/23/2015 Inactive clonidine HCl 0.1 mg tablet RxNorm: 076558 1 Tablet(s) PO TID 03/2304/25/2015 Inactive replaces 0.2mg dose nystatin 100,000 unit/gram topical cream RxNorm: 296720 Applica tion TOP BID 03/23/2015 06/20/2015 Inactive baclofen 20 mg tablet RxNorm: 165107 1 Tablet(s) PO TID as needed 0 03/23/2015 04/25/2015 Inactive Premarin 1.25 mg tablet RxNorm: 277042 1-2 Tablet(s) PO QD 03/23/20 15 04/25/2015 Inactive Klor-Con 8 mEq tablet,extended release RxNorm: 395366 1 Tablet( s) PO BID 03/23/2015 04/25/2015 Inactive cefdinir 300 mg capsule RxNorm: 494984 2 Capsule(s) PO QD 03/16/2015 03/25/2015 Inactive baclofen 20 mg tablet RxNorm: 546158 1 Tablet(s) PO TID as needed 0 03/02/2015 03/22/2015 Inactive allopurinol 300 mg tablet RxNorm: 485293 1 Tablet(s) PO QD TAKE ONE TABLET BY MOUTH EVERY DAY 02/22/2015 05/22/2015 Inactive Klor-Con M20 mEq tablet,extended release RxNorm: 375092 2 Tablet(s) PO BID to use with lasix 02/22/2015 06/20/2015 Inactive clonidine HCl 0.1 mg tablet RxNorm: 938287 1 Tablet(s) PO TID 02/1903/22/2015 Inactive replaces 0.2mg dose Lipitor 10 mg tablet RxNorm: 213828 1 Tablet(s) PO QHS 01/20/201506/2015 Inactive Lipitor 10 mg tablet RxNorm: 298516 1 Tablet(s) PO QHS 01/20/2015 Inactive Singulair 10 mg tablet RxNorm: 122773 1 Tablet(s) PO QD TAKE ONE TABLET BY MOUTH EVERY DAY 11/20/2014 05/18/2015 Inactive Lipitor 10 mg tablet RxNorm: 805757 1 Tablet(s) PO QHS 11/20/201408/2015 Inactive allopurinol 300 mg tablet RxNorm: 628610 1 Tablet(s) PO QD TAKE ONE TABLET BY MOUTH EVERY DAY 11/20/2014 02/16/2015 Inactive Bystolic 10 mg tablet RxNorm: 184575 1 Tablet(s) PO QAM TAKE ONE TABLET BY MOUTH EVERY MORNING 11/20/2014 04/22/2015 Inactive Klor-Con 8 mEq tablet,extended release RxNorm: 073210 1 Tablet( s) PO BID 11/20/2014 02/17/2015 Inactive baclofen 20 mg tablet RxNorm: 079659 1 Tablet(s) PO TID as needed 0 11/20/2014 01/21/2019 Inactive baclofen 20 mg tablet RxNorm: 173487 1 Tablet(s) PO TID as needed 0 10/27/2014 11/19/2014 Inactive baclofen 20 mg tablet RxNorm: 735122 1 Tablet(s) PO TID as needed 0 10/26/2014 03/01/2015 Inactive allopurinol 300 mg tablet RxNorm: 165415 1 Tablet(s) PO QD TAKE ONE TABLET BY MOUTH EVERY DAY 10/26/2014 11/20/2014 Inactive Bystolic 10 mg tablet RxNorm: 571280 1 Tablet(s) PO QAM TAKE ONE TABLET BY MOUTH EVERY MORNING 10/26/2014 11/20/2014 Inactive clonidine HCl 0.1 mg tablet RxNorm: 600015 1 Tablet(s) PO TID 09/2805/27/2019 Inactive replaces 0.2mg dose clonidine HCl 0.1 mg tablet RxNorm: 331765 1 Tablet(s) PO TID 09/2802/18/2015 Inactive replaces 0.2mg dose baclofen 20 mg tablet RxNorm: 742000 1 Tablet(s) PO TID as needed 1 11/01/2013 08/30/2014 Inactive Lipitor 10 mg tablet RxNorm: 540965 1 Tablet(s) PO QHS 08/31/2014 Inactive baclofen 20 mg tablet RxNorm: 420722 1 Tablet(s) PO TID as needed 1 11/01/2013 10/26/2014 Inactive triamterene 75 mg-hydrochlorothiazide 50 mg tablet RxNorm: 3 75146 1 Tablet(s) PO QD 08/31/2014 02/26/2015 Inactive Klor-Con 8 mEq tablet,extended release RxNorm: 184150 1 Tablet( s) PO BID 08/31/2014 11/20/2014 Inactive baclofen 20 mg tablet RxNorm: 138362 1 Tablet(s) PO TID as needed 1 09/30/2013 10/25/2014 Inactive baclofen 20 mg tablet RxNorm: 648820 1 Tablet(s) PO TID as needed 1 09/30/2013 08/31/2014 Inactive omeprazole 40 mg capsule,delayed release RxNorm: 886404 1 Capsu le(s) PO QD 07/21/2014 07/23/2015 Inactive Flonase 50 mcg/actuation nasal spray,suspension RxNorm: 8963 23 1 [place] NASAL BID 07/15/2014 04/09/2017 Inactive hydrocodone 10 mg-acetaminophen 325 mg tablet RxNorm: 514731 1-2 Tablet(s) QID as needed for pain TAKE ONE TO TWO TABLETS BY MOUTH FOUR TIMES A DAY . MUST LAST 30 DAYS 06/30/2014 07/27/2014 Inactive (Response to an electronic controlled substance refill request - RxReferenceNumber: [id number]) baclofen 20 mg tablet RxNorm: 637484 1 Tablet(s) PO TID as needed 1 07/31/2014 Inactive Singulair 10 mg tablet RxNorm: 928621 1 Tablet(s) PO QD TAKE ONE TABLET BY MOUTH EVERY DAY 05/25/2014 11/20/2014 Inactive Bystolic 10 mg tablet RxNorm: 564483 TAKE ONE TABLET BY MOUTH E VERY MORNING 05/25/2014 09/21/2014 Inactive allopurinol 300 mg tablet RxNorm: 018945 1 Tablet(s) PO QD TAKE ONE TABLET BY MOUTH EVERY DAY 05/25/2014 10/21/2014 Inactive baclofen 20 mg tablet RxNorm: 037021 1 Tablet(s) PO TID as needed 0 05/25/2014 06/29/2014 Inactive allopurinol 300 mg tablet RxNorm: 815691 TAKE ONE TABLET BY LOPEZ TH EVERY DAY 05/25/2014 09/21/2014 Inactive Singulair 10 mg tablet RxNorm: 306571 1 Tablet(s) PO QD TAKE ONE TABLET BY MOUTH EVERY DAY 05/25/2014 05/24/2014 Inactive Bystolic 10 mg tablet RxNorm: 392048 1 Tablet(s) PO QAM TAKE ONE TABLET BY MOUTH EVERY MORNING 05/25/2014 10/21/2014 Inactive metolazone 2.5 mg tablet RxNorm: 240212 1 Tablet(s) PO QD as ne eded for edema 05/18/2014 04/25/2015 Inactive Lasix 40 mg tablet RxNorm: 878856 1 Tablet(s) PO QAM s hould take potassium supplementation with this medication 05/14/2014 05/17/2014 Inactive hydrocodone 10 mg-acetaminophen 325 mg tablet RxNorm: 405884 1-2 Tablet(s) QID as needed for pain TAKE ONE TO TWO TABLETS BY MOUTH FOUR TIMES A DAY . MUST LAST 30 DAYS 05/07/2014 06/05/2014 Inactive (Response to an electronic controlled substance refill request - RxReferenceNumber: [id number]) alprazolam 0.5 mg tablet RxNorm: 930341 TAKE ONE TABLET BY MOUTH TWICE A DAY , MUST LAST 30 DAYS 05/07/2014 05/22/2016 Inactive (Response to a n electronic controlled substance refill request - RxReferenceNumber: [id number]) diclofenac sodium 75 mg tablet,delayed release RxNorm: 11663 6 1 Tablet(s) PO BID for pain 04/24/2014 07/20/2014 Inactive Celebrex 200 mg capsule RxNorm: 995962 TAKE ONE CAPSULE BY MOUT H EVERY DAY 04/24/2014 07/20/2014 Inactive alprazolam 0.5 mg tablet RxNorm: 694303 TAKE ONE TABLET BY MOUTH TWICE A DAY , MUST LAST 30 DAYS 03/24/2014 04/22/2014 Inactive (Response to a n electronic controlled substance refill request - RxReferenceNumber: [id number]) diclofenac sodium 75 mg tablet,delayed release RxNorm: 15785 6 1 Tablet(s) PO BID for pain 03/24/2014 04/24/2014 Inactive clonidine HCl 0.1 mg tablet RxNorm: 071153 1 Tablet(s) PO TID 03/2409/28/2014 Inactive replaces 0.2mg dose Klor-Con 8 mEq tablet,extended release RxNorm: 645356 1 Tablet( s) PO BID 02/26/2014 08/31/2014 Inactive diclofenac sodium 75 mg tablet,delayed release RxNorm: 63460 6 1 Tablet(s) PO BID for pain 02/25/2014 03/24/2014 Inactive hydrocodone 10 mg-acetaminophen 325 mg tablet RxNorm: 648482 1-2 Tablet(s) QID as needed for pain TAKE ONE TO TWO TABLETS BY MOUTH FOUR TIMES A DAY . MUST LAST 30 DAYS 02/25/2014 03/26/2014 Inactive (Response to an electronic controlled substance refill request - RxReferenceNumber: [id number]) alprazolam 0.5 mg tablet RxNorm: 984175 Tablet(s) PO BI D as needed for anxiety TAKE ONE TABLET BY MOUTH TWICE A DAY , MUST LAST 30 DAYS 02/25/2014 Inactive (Response to an electronic controlled [place] bstance refill request - RxReferenceNumber: [id number]) [AttnRPh: Saving apply/adjudicate RxGRP:SG20 RxBIN:[id number] RxPCN: ID#:[id number]] alprazolam 0.5 mg tablet RxNorm: 768344 Tablet(s) TAKE ONE TABLET BY MOUTH TWICE A DAY , MUST LAST 30 DAYS 01/27/2014 02/24/2014 Inactive (Respo nse to an electronic controlled substance refill request - RxReferenceNumber: [id number]) [AttnRPh: Saving apply/adjudicate RxGRP:SG20 RxBIN:[id number] RxPCN: ID#:[id number]] hydrocodone 10 mg-acetaminophen 325 mg tablet RxNorm: 575628 1-2 Tablet(s) QID as needed for pain TAKE ONE TO TWO TABLETS BY MOUTH FOUR TIMES A DAY . MUST LAST 30 DAYS 01/27/2014 02/24/2014 Inactive (Response to an electronic controlled substance refill request - RxReferenceNumber: [id number]) alprazolam 0.5 mg tablet RxNorm: 523029 TAKE ONE TABLET BY MOUTH TWICE A DAY , MUST LAST 30 DAYS 01/27/2014 01/26/2014 Inactive (Response to a n electronic controlled substance refill request - RxReferenceNumber: [id number]) Premarin 1.25 mg tablet RxNorm: 040619 1-2 Tablet(s) PO QD 01/28/20 14 07/25/2014 Inactive alprazolam 0.5 mg tablet RxNorm: 474592 TAKE ONE TABLET BY MOUTH TWICE A DAY , MUST LAST 30 DAYS 01/27/2014 01/27/2014 Inactive (Response to a n electronic controlled substance refill request - RxReferenceNumber: [id number]) hydrocodone 10 mg-acetaminophen 325 mg tablet RxNorm: 372445 TAKE ONE TO TWO TABLETS BY MOUTH FOUR TIMES A DAY . MUST LAST 30 DAYS 01/27/20142013 Inactive (Response to an electronic controlled [place] bstance refill request - RxReferenceNumber: [id number]) Celebrex 200 mg capsule RxNorm: 524459 1 Capsule(s) PO QD TAKE ONE CAPSULE BY MOUTH EVERY DAY 12/29/2013 04/27/2014 Inactive hydrocodone 10 mg-acetaminophen 325 mg tablet RxNorm: 585803 1-2 Tablet(s) PO QID as needed for severe pain 12/29/2013 01/27/2014 Inactive allopurinol 300 mg tablet RxNorm: 713962 1 Tablet(s) PO QD TAKE ONE TABLET BY MOUTH EVERY DAY 12/29/2013 05/24/2014 Inactive alprazolam 0.5 mg tablet RxNorm: 757043 TAKE ONE TABLET BY MOUTH TWICE A DAY , MUST LAST 30 DAYS 12/29/2013 01/27/2014 Inactive (Response to a n electronic controlled substance refill request - RxReferenceNumber: [id number]) Celebrex 200 mg capsule RxNorm: 689820 1 Capsule(s) PO QD TAKE ONE CAPSULE BY MOUTH EVERY DAY 12/29/2013 12/29/2013 Inactive Bystolic 10 mg tablet RxNorm: 319949 1 Tablet(s) PO QAM TAKE ONE TABLET BY MOUTH EVERY MORNING 12/29/2013 05/24/2014 Inactive Bystolic 10 mg tablet RxNorm: 245589 1 Tablet(s) PO QAM TAKE ONE TABLET BY MOUTH EVERY MORNING 12/29/2013 12/29/2013 Inactive Singulair 10 mg tablet RxNorm: 080401 1 Tablet(s) PO QD TAKE ONE TABLET BY MOUTH EVERY DAY 12/29/2013 05/25/2014 Inactive hydrocodone 10 mg-acetaminophen 325 mg tablet RxNorm: 994465 TAKE ONE TO TWO TABLETS BY MOUTH FOUR TIMES A DAY . MUST LAST 30 DAYS 12/29/20132013 Inactive (Response to an electronic controlled [place] bstance refill request - RxReferenceNumber: [id number]) Trazadone 75mg Tablet RxNorm: 1 Tablet(s) PO QHS as needed 03/23/2014 Inactive Trazadone 75mg Tablet RxNorm: 1 Tablet(s) PO QHS 12/24/20132014 Inactive Soma 350 mg tablet RxNorm: 775872 Tablet(s) PO TAKE ON E TABLET BY MOUTH THREE TIMES A DAY NEEDED FOR MUSCLE SPASMS. THIS MUST LAST 30 DAYS BETWEEN REFILLS. 12/10/2013 12/22/2013 Inactive (Appended: Cont rolled substance eRx refill - RxReferenceNumber: [id number]) diclofenac sodium 75 mg tablet,delayed release RxNorm: 72137 6 1 Tablet(s) PO BID for pain 12/10/2013 02/24/2014 Inactive allopurinol 300 mg tablet RxNorm: 488092 1 Tablet(s) PO QD 11/20/19 14 12/29/2013 Inactive alprazolam 0.5 mg tablet RxNorm: 982992 2 Tablet(s) PO BID 11/13/19 14 12/29/2013 Inactive prn clonidine 0.1 mg tablet RxNorm: 125746 1 Tablet(s) PO TID 11/12/2013 02/09/2014 Inactive replaces 0.2mg dose Klor-Con M20 mEq tablet,extended release RxNorm: 432945 2 Tablet(s) PO BID to use with lasix 11/12/2013 05/10/2014 Inactive Singulair 10 mg tablet RxNorm: 883759 1 Tablet(s) PO QD 11/12/2013 Inactive hydrocodone 10 mg-acetaminophen 325 mg tablet RxNorm: 450585 1-2 Tablet(s) PO QID as needed for severe pain 11/12/2013 12/28/2013 Inactive Bystolic 10 mg tablet RxNorm: 103826 1 Tablet(s) PO QAM 11/12/2013 Inactive Soma 350 mg tablet RxNorm: 463186 Tablet(s) PO TAKE ON E TABLET BY MOUTH THREE TIMES A DAY NEEDED FOR MUSCLE SPASMS. THIS MUST LAST 30 DAYS BETWEEN REFILLS. 10/13/2013 12/10/2013 Inactive (Appended: Cont rolled substance eRx refill - RxReferenceNumber: [id number]) hydrocodone 10 mg-acetaminophen 325 mg tablet RxNorm: 551007 1-2 Tablet(s) PO QID as needed for severe pain 10/03/2013 11/11/2013 Inactive diclofenac sodium 75 mg tablet,delayed release RxNorm: 97448 8 1 Tablet(s) PO BID for pain 09/11/2013 12/10/2013 Inactive alprazolam 0.5 mg tablet RxNorm: 516333 1 Tablet(s) PO BID May refill on 04/26/13 09/01/2013 10/30/2013 Inactive prn hydrocodone 10 mg-acetaminophen 325 mg tablet RxNorm: 879886 1-2 Tablet(s) PO QID as needed for severe pain 09/01/2013 10/02/2013 Inactive triamterene 75 mg-hydrochlorothiazide 50 mg tablet RxNorm: 3 04069 1 Tablet(s) PO QD 08/04/2013 08/31/2014 Inactive cyclobenzaprine 10 mg tablet RxNorm: 947171 1 Tablet(s) PO TID prn spasm 08/04/2013 08/13/2013 Inactive clonidine 0.1 mg tablet RxNorm: 309046 1 Tablet(s) PO TID 08/04/2013 11/11/2013 Inactive replaces 0.2mg dose cyclobenzaprine 10 mg tablet RxNorm: 406336 1 Tablet(s) PO TID prn spasm 07/23/2013 08/01/2013 Inactive hydrocodone 10 mg-acetaminophen 325 mg tablet RxNorm: 132521 2 1-2 Tablet(s) PO QID as needed for severe pain 06/09/2013 08/07/2013 Inactive Singulair 10 mg tablet RxNorm: 062927 1 Tablet(s) PO QD 05/29/2013 Inactive Klor-Con 8 mEq tablet,extended release RxNorm: 419907 1 Tablet( s) PO BID 05/29/2013 02/26/2014 Inactive allopurinol 300 mg tablet RxNorm: 109847 1 Tablet(s) PO QD 05/29/20 13 11/19/2013 Inactive Bystolic 10 mg tablet RxNorm: 885108 1 Tablet(s) PO QAM take one daily in the morning. 05/29/2013 11/11/2013 Inactive scopolamine 1.5 mg 72 hr Transderm Patch RxNorm: 769927 Application TD Q72H for motion sickness 05/26/2013 07/22/2013 Inactive Soma 350 mg tablet RxNorm: 174376 1 Tablet(s) PO TID as needed for spasm 05/19/2013 10/13/2013 Inactive diclofenac sodium 75 mg tablet,delayed release RxNorm: 99757 8 1 Tablet(s) PO BID for pain 05/14/2013 07/22/2013 Inactive allopurinol 300 mg tablet RxNorm: 580974 1 Tablet(s) PO QD 04/25/20 13 05/28/2013 Inactive alprazolam 0.5 mg tablet RxNorm: 762593 1 Tablet(s) PO BID May refill on 04/26/13 04/25/2013 06/23/2013 Inactive prn Celebrex 200 mg capsule RxNorm: 378871 1 Capsule(s) PO QD 04/16/2013 12/29/2013 Inactive alprazolam 0.5 mg tablet RxNorm: 308974 1 Tablet(s) PO BID May refill on 04/26/13 04/16/2013 04/24/2013 Inactive prn Soma 350 mg tablet RxNorm: 895851 1 Tablet(s) PO TID as needed for spasm 04/16/2013 No Stop Date Active Lasix 40 mg tablet RxNorm: 451152 1 Tablet(s) PO QAM s hould take potassium supplementation with this medication 04/16/2013 06/14/2013 Inactive clonidine 0.1 mg tablet RxNorm: 698720 1 Tablet(s) PO TID 04/16/2013 08/03/2013 Inactive replaces 0.2mg dose prednisone 20 mg tablet RxNorm: 650514 1 Tablet(s) PO BID 04/16/2013 04/20/2013 Inactive diclofenac sodium 75 mg tablet,delayed release RxNorm: 30624 8 1 Tablet(s) PO BID for pain 04/14/2013 05/13/2013 Inactive hydrocodone 10 mg-acetaminophen 325 mg tablet RxNorm: 618753 2 1-2 Tablet(s) PO QID as needed for severe pain 04/14/2013 No Stop Date Active Lasix 40 mg tablet RxNorm: 100255 1 Tablet(s) PO QAM s hould take potassium supplementation with this medication 03/31/2013 04/15/2013 Inactive Celebrex 200 mg capsule RxNorm: 236737 1 Capsule(s) PO QD 03/31/2013 04/15/2013 Inactive alprazolam 0.5 mg tablet RxNorm: 994562 1 Tablet(s) PO BID 03/28/20 13 04/15/2013 Inactive prn hydrocodone 10 mg-acetaminophen 325 mg tablet RxNorm: 441422 2 1-2 Tablet(s) PO QID as needed for severe pain 03/10/2013 No Stop Date Active metformin ER 500 mg 24 hr tablet,extended release RxNorm: 86 1018 1 Tablet(s) PO QD 03/06/2013 07/22/2013 Inactive clindamycin 300 mg capsule RxNorm: 681253 2 Capsule(s) PO TID 03/0503/14/2013 Inactive Zaroxolyn 2.5 mg tablet RxNorm: 522737 1 Tablet(s) PO QAM 03/05/2013 05/19/2015 Inactive amlodipine 10 mg tablet RxNorm: 406981 1 Tablet(s) PO QD 03/03/2013 0 05/25/2013 Inactive Norvasc 10 mg tablet RxNorm: 581520 1 Tablet(s) PO QD 02/28/201307/11 Inactive Celebrex 200 mg capsule RxNorm: 591131 1 Capsule(s) PO QD 02/28/2013 03/30/2013 Inactive diclofenac sodium 75 mg tablet,delayed release RxNorm: 84794 8 1 Tablet(s) PO BID for pain 02/14/2013 03/15/2013 Inactive Soma 350 mg tablet RxNorm: 347816 1 Tablet(s) PO TID as needed for spasm 02/14/2013 No Stop Date Active hydrocodone 10 mg-acetaminophen 325 mg tablet RxNorm: 592403 2 1-2 Tablet(s) PO QID as needed for severe pain 02/14/2013 No Stop Date Active Norvasc 10 mg tablet RxNorm: 239355 1 Tablet(s) PO QD 02/10/201302/09 Inactive Celebrex 200 mg capsule RxNorm: 149036 1 Capsule(s) PO QD 01/27/2013 01/26/2013 Inactive Premarin 1.25 mg tablet RxNorm: 106570 1-2 Tablet(s) PO QD 01/28/20 13 06/25/2013 Inactive alprazolam 0.5 mg tablet RxNorm: 713135 1 Tablet(s) PO BID 01/28/20 13 02/25/2013 Inactive prn amlodipine 5 mg tablet RxNorm: 843530 1 Tablet(s) PO QD 01/27/2013 Inactive Celebrex 200 mg capsule RxNorm: 268503 1 Capsule(s) PO QD 01/27/2013 02/27/2013 Inactive gabapentin 600 mg tablet RxNorm: 379058 1 Tablet(s) PO QHS 01/16/20 13 07/22/2013 Inactive Soma 350 mg tablet RxNorm: 117657 1 Tablet(s) PO TID as needed for spasm 01/15/2013 No Stop Date Active hydrocodone 10 mg-acetaminophen 325 mg tablet RxNorm: 059244 2 1-2 Tablet(s) PO QID as needed for severe pain 01/15/2013 No Stop Date Active Soma 350 mg tablet RxNorm: 754881 1 Tablet(s) PO TID as needed for spasm 01/13/2013 No Stop Date Active alprazolam 0.5 mg tablet RxNorm: 651777 1 Tablet(s) PO BID 12/31/19 13 01/26/2013 Inactive prn diclofenac sodium 75 mg tablet,delayed release RxNorm: 21142 8 1 Tablet(s) PO BID for pain 12/09/2012 01/07/2013 Inactive gabapentin 600 mg tablet RxNorm: 363804 1 Tablet(s) PO QHS 12/10/19 13 01/07/2013 Inactive hydrocodone 10 mg-acetaminophen 325 mg tablet RxNorm: 928533 2 1-2 Tablet(s) PO QID as needed for severe pain 12/02/2012 No Stop Date Active Levaquin 750 mg tablet RxNorm: 667575 1 Tablet(s) PO QD 11/21/2012 Inactive Singulair 10 mg tablet RxNorm: 564774 1 Tablet(s) PO QD 11/11/2012 Inactive clonidine 0.2 mg tablet RxNorm: 933649 1 Tablet(s) PO TID 11/11/2012 04/15/2013 Inactive alprazolam 0.5 mg tablet RxNorm: 496319 1 Tablet(s) PO BID 11/12/19 13 12/10/2012 Inactive prn Klor-Con 8 mEq tablet,extended release RxNorm: 597715 1 Tablet( s) PO BID 11/11/2012 03/04/2013 Inactive hydrocodone 10 mg-acetaminophen 325 mg tablet RxNorm: 531269 2 1-2 Tablet(s) PO QID as needed for severe pain 11/06/2012 No Stop Date Active alprazolam 0.5 mg tablet RxNorm: 050050 1 Tablet(s) PO BID 10/15/19 13 11/10/2012 Inactive prn hydrocodone-acetaminophen 10 mg-325 mg tablet RxNorm: 630569 2 1-2 Tablet(s) PO QID as needed for severe pain 10/10/2012 10/09/2012 Inactive allopurinol 300 mg tablet RxNorm: 493052 1 Tablet(s) PO QD 09/20/19 13 12/18/2012 Inactive alprazolam 0.5 mg tablet RxNorm: 019340 1 Tablet(s) PO BID 09/17/19 13 10/14/2012 Inactive prn hydrocodone-acetaminophen 10 mg-325 mg tablet RxNorm: 055609 2 1-2 Tablet(s) PO QID as needed for severe pain 08/22/2012 08/21/2012 Inactive Norvasc 10 mg tablet RxNorm: 599837 1 Tablet(s) PO QD 08/12/201201/10 Inactive Premarin 1.25 mg tablet RxNorm: 020958 1-2 Tablet(s) PO QD 07/30/20 12 12/26/2012 Inactive alprazolam 0.5 mg tablet RxNorm: 139433 1 Tablet(s) PO BID 07/29/20 12 08/27/2012 Inactive prn Klor-Con 8 mEq tablet,extended release RxNorm: 804627 1 Tablet( s) PO BID 07/29/2012 11/10/2012 Inactive hydrocodone-acetaminophen 10 mg-325 mg tablet RxNorm: 455205 2 1-2 Tablet(s) PO QID as needed for severe pain 07/29/2012 No Stop Date Active Premarin 1.25 mg tablet RxNorm: 826707 1-2 Tablet(s) PO QD 07/29/20 12 07/29/2012 Inactive clonidine 0.2 mg tablet RxNorm: 945138 1 Tablet(s) PO TID 07/29/2012 10/28/2012 Inactive ketorolac 10 mg tablet RxNorm: 872299 1 Tablet(s) PO QID prn he adache 07/18/2012 No Stop Date Active hydrocodone-acetaminophen 10 mg-325 mg tablet RxNorm: 971052 2 1-2 Tablet(s) PO QID as needed for severe pain 07/03/2012 No Stop Date Active amlodipine 5 mg tablet RxNorm: 734465 1 Tablet(s) PO QD 07/02/2012 Inactive allopurinol 300 mg tablet RxNorm: 860196 1 Tablet(s) PO QD 07/02/20 12 09/19/2012 Inactive Celebrex 200 mg capsule RxNorm: 328346 1 Capsule(s) PO QD for j oint pain 06/26/2012 10/23/2012 Inactive diclofenac sodium 75 mg tablet,delayed release RxNorm: 16768 8 1 Tablet(s) PO BID for pain 06/19/2012 09/16/2012 Inactive hydrocodone-acetaminophen 10 mg-325 mg tablet RxNorm: 857473 2 1-2 Tablet(s) PO QID as needed for severe pain 06/10/2012 No Stop Date Active alprazolam 0.5 mg tablet RxNorm: 363339 1 Tablet(s) PO BID 06/03/20 12 07/02/2012 Inactive prn ketorolac 10 mg tablet RxNorm: 488158 1 Tablet(s) PO Q8H 05/27/2012 0 01/21/2019 Inactive as needed for headache hydrocodone-acetaminophen 10 mg-325 mg tablet RxNorm: 170579 2 1-2 Tablet(s) PO QID as needed for severe pain 05/15/2012 No Stop Date Active allopurinol 300 mg tablet RxNorm: 091090 1 Tablet(s) PO QD 05/14/2006/12/2012 Inactive allopurinol 300 mg tablet RxNorm: 365605 1 Tablet(s) PO QD 05/14/2005/13/2012 Inactive amlodipine 5 mg tablet RxNorm: 945509 1 Tablet(s) PO QD 05/01/2012 Inactive amlodipine 5 mg Tab RxNorm: 276753 1 Tablet(s) PO QD 05/01/201204/30 Inactive Celebrex 200 mg capsule RxNorm: 934278 1 Capsule(s) PO QD for j oint pain 05/01/2012 06/25/2012 Inactive Singulair 10 mg tablet RxNorm: 001628 1 Tablet(s) PO QD 05/01/2012 Inactive alprazolam 0.5 mg tablet RxNorm: 667357 1 Tablet(s) PO BID 05/01/2005/30/2012 Inactive prn Celebrex 200 mg Cap RxNorm: 724117 1 Capsule(s) PO QD for joint radu n 05/01/2012 04/30/2012 Inactive hydrocodone-acetaminophen 10 mg-325 mg tablet RxNorm: 885517 2 1-2 Tablet(s) PO QID as needed for severe pain 04/19/2012 No Stop Date Active Lasix 40 mg tablet RxNorm: 449860 1 Tablet(s) PO QAM s hould take potassium supplementation with this medication 04/05/2012 06/03/2012 Inactive alprazolam 0.5 mg Tab RxNorm: 782512 1 Tablet(s) PO BID 04/05/2012 Inactive prn hydrocodone-acetaminophen 10 mg-325 mg Tab RxNorm: 7090827 1-2 Tablet(s) PO QID as needed for severe pain 03/25/2012 03/24/2012 Inactive clonidine 0.2 mg Tab RxNorm: 278533 1 Tablet(s) PO TID 03/08/2012 Inactive alprazolam 0.5 mg Tab RxNorm: 333040 1 Tablet(s) PO BID 03/08/2012 Inactive prn Soma 350 mg tablet RxNorm: 684680 1 Tablet(s) PO TID for spasm 02/0903/18/2012 Inactive clonidine 0.2 mg tablet RxNorm: 688043 1 Tablet(s) PO TID 03/08/2012 07/28/2012 Inactive Celebrex 200 mg Cap RxNorm: 564269 1 Capsule(s) PO QD for joint radu n 03/01/2012 04/29/2012 Inactive amlodipine 5 mg Tab RxNorm: 741073 1 Tablet(s) PO QD 02/26/201202/24 Inactive amlodipine 5 mg Tab RxNorm: 473578 1 Tablet(s) PO QD 02/26/201204/25 Inactive Bactroban 2 % Ointment RxNorm: 540032 Application TOP QID to sores 02/23/2012 No Stop Date Active amlodipine 2.5 mg tablet RxNorm: 092568 1 Tablet(s) PO QHS 02/20/20 12 02/25/2012 Inactive doxycycline hyclate 100 mg Cap RxNorm: 0602518 1 Capsule(s) PO BID 02/20/2012 02/29/2012 Inactive hydrocodone-acetaminophen 10 mg-325 mg Tab RxNorm: 8029842 1-2 T ablet(s) PO QID 02/08/2012 No Stop Date Active alprazolam 0.5 mg Tab RxNorm: 972610 1 Tablet(s) PO BID 02/08/2012 Inactive prn Singulair 10 mg Tab RxNorm: 706260 1 Tablet(s) PO QD 02/08/201204/30 Inactive Soma 350 mg Tab RxNorm: 404229 1 Tablet(s) PO TID for spasm 012 03/07/2012 Inactive Soma 350 mg Tab RxNorm: 872358 1 Tablet(s) PO TID for spasm 012 02/05/2012 Inactive diclofenac sodium 75 mg tablet,delayed release RxNorm: 66420 8 1 Tablet(s) PO BID for pain 02/01/2012 03/18/2012 Inactive Celebrex 200 mg Cap RxNorm: 507946 1 Capsule(s) PO QD for joint radu n 01/30/2012 02/28/2012 Inactive Lasix 40 mg Tab RxNorm: 776182 1 Tablet(s) PO QAM 01/24/2012 03/18/20 12 Inactive potassium chloride ER 20 mEq tablet,extended release(part/cr yst) RxNorm: 480549 2 Tablet(s) PO BID 01/24/2012 02/22/2012 Inactive alprazolam 0.5 mg Tab RxNorm: 238467 1 Tablet(s) PO BID 01/11/2012 Inactive prn hydrocodone-acetaminophen 10 mg-325 mg Tab RxNorm: 5408955 1-2 T ablet(s) PO QID 01/11/2012 No Stop Date Active Ambien 10 mg Tab RxNorm: 555835 1 Tablet(s) PO QHS 01/11/2012 012 Inactive Klor-Con 8 mEq Tab RxNorm: 568462 1 Tablet(s) PO BID 01/11/201201/22 Inactive diclofenac sodium 75 mg Tab, Delayed Release RxNorm: 398990 1 Tablet(s) PO BID for pain 01/10/2012 01/31/2012 Inactive Ambien 10 mg Tab RxNorm: 771662 1 Tablet(s) PO QHS 12/11/2011 012 Inactive alprazolam 0.5 mg Tab RxNorm: 346265 1 Tablet(s) PO BID 12/11/2011 Inactive prn hydrocodone 10 mg-acetaminophen 325 mg tablet RxNorm: 389474 1-2 Tablet(s) PO TID 11/28/2011 No Stop Date Active as needed for pa in - Previous quantity #240, will start dosing for #180 in April 2011 per Doctor Td. Ambien 10 mg Tab RxNorm: 044585 1 Tablet(s) PO QHS 11/09/2011 012 Inactive alprazolam 0.5 mg Tab RxNorm: 603640 1 Tablet(s) PO BID 11/09/2011 Inactive prn hydrocodone-acetaminophen 10 mg-325 mg Tab RxNorm: 0143013 1-2 T ablet(s) PO TID 11/06/2011 No Stop Date Active as needed for pain - Previous quantity #240, will start dosing for #180 in April 2011 per Doctor Td. Singulair 10 mg Tab RxNorm: 522608 1 Tablet(s) PO QD 10/13/201110/12 Inactive Singulair 10 mg Tab RxNorm: 215887 1 Tablet(s) PO QD 10/13/201102/06 Inactive hydrocodone-acetaminophen 10 mg-325 mg Tab RxNorm: 2616283 1-2 T ablet(s) PO TID 10/10/2011 10/09/2011 Inactive as needed for pain - Previous quantity #240, will start dosing for #180 in April 2011 per Doctor Td. hydrocodone-acetaminophen 10 mg-325 mg Tab RxNorm: 2677564 1-2 T ablet(s) PO TID 10/09/2011 No Stop Date Active as needed for pain - Previous quantity #240, will start dosing for #180 in April 2011 per Doctor Td. Klor-Con 8 mEq Tab RxNorm: 428693 1 Tablet(s) PO BID 10/02/201101/09 Inactive triamterene 75 mg-hydrochlorothiazide 50 mg tablet RxNorm: 3 83290 1 Tablet(s) PO QD 09/14/2011 03/06/2013 Inactive Ambien 10 mg Tab RxNorm: 540183 1 Tablet(s) PO QHS 09/14/2011 012 Inactive hydrocodone-acetaminophen 10 mg-325 mg Tab RxNorm: 7557216 1-2 T ablet(s) PO TID 09/14/2011 No Stop Date Active as needed for pain - Previous quantity #240, will start dosing for #180 in April 2011 per Doctor dT. alprazolam 0.5 mg Tab RxNorm: 325493 1 Tablet(s) PO BID 09/14/2011 Inactive prn Zithromax 500 mg Tab RxNorm: 320563 1 Tablet(s) PO QD 09/13/201109/10 Inactive prednisone 20 mg Tab RxNorm: 493327 1 Tablet(s) PO BID 08/31/2011 Inactive Ambien 10 mg Tab RxNorm: 523898 1 Tablet(s) PO QHS 08/17/2011 011 Inactive hydrocodone-acetaminophen 10 mg-325 mg Tab RxNorm: 1147487 1-2 T ablet(s) PO TID 08/17/2011 No Stop Date Active as needed for pain - Previous quantity #240, will start dosing for #180 in April 2011 per Doctor Td. clonidine 0.2 mg Tab RxNorm: 022242 1 Tablet(s) PO TID 08/17/201112/2011 Inactive Ambien 10 mg Tab RxNorm: 789209 1 Tablet(s) PO QHS 08/17/2011 019 Inactive alprazolam 0.5 mg Tab RxNorm: 735840 1 Tablet(s) PO BID 08/17/2011 Inactive prn hydrocodone-acetaminophen 10 mg-325 mg Tab RxNorm: 1360120 1-2 T ablet(s) PO TID 08/17/2011 08/16/2011 Inactive as needed for pain - Previous quantity #240, will start dosing for #180 in April 2011 per Doctor Td. Singulair 10 mg Tab RxNorm: 665755 1 Tablet(s) PO QD 08/17/201108/16 Inactive Klor-Con 8 mEq Tab RxNorm: 268052 1 Tablet(s) PO QD 08/17/20112011 Inactive alprazolam 0.5 mg Tab RxNorm: 530655 1 Tablet(s) PO BID 07/20/2011 Inactive prn Ambien 10 mg Tab RxNorm: 427258 1 Tablet(s) PO QHS 07/20/2011 012 Inactive Singulair 10 mg Tab RxNorm: 640254 1 Tablet(s) PO QD 07/20/201107/19 Inactive Premarin 1.25 mg tablet RxNorm: 080427 2 Tablet(s) PO QD 07/20/2011 0 01/21/2019 Inactive Premarin 1.25 mg tablet RxNorm: 629095 1-2 Tablet(s) PO QD 07/20/20 11 12/16/2011 Inactive Premarin 1.25 mg Tab RxNorm: 656543 1-2 Tablet(s) PO QD 07/06/2011 Inactive alprazolam 0.5 mg Tab RxNorm: 262180 1 Tablet(s) PO BID 06/22/2011 Inactive prn alprazolam 0.5 mg Tab RxNorm: 414863 1 Tablet(s) PO BID 06/22/2011 Inactive prn Premarin 1.25 mg Tab RxNorm: 745918 1 Tablet(s) PO QD m ay do 90 day fill if desired 06/22/2011 07/05/2011 Inactive hydrocodone-acetaminophen 10 mg-325 mg Tab RxNorm: 0919678 1-2 T ablet(s) PO TID 06/22/2011 No Stop Date Active as needed for pain - Previous quantity #240, will start dosing for #180 in April 2011 per Doctor Td. clonidine 0.2 mg Tab RxNorm: 585665 1 Tablet(s) PO TID 05/25/201103/2011 Inactive triamterene-hydrochlorothiazide 75 mg-50 mg Tab RxNorm: 3108 18 1 Tablet(s) PO QD 05/25/2011 09/13/2011 Inactive alprazolam 0.5 mg Tab RxNorm: 766037 1 Tablet(s) PO BID 05/25/2011 Inactive prn hydrocodone-acetaminophen 10 mg-325 mg Tab RxNorm: 1680000 1-2 T ablet(s) PO TID 05/25/2011 No Stop Date Active as needed for pain - Previous quantity #240, will start dosing for #180 in April 2011 per Doctor Td. Robaxin-750 750 mg Tab RxNorm: 004994 2 Tablet(s) PO QHS 05/22/2011 1 Inactive prn spasm hydrocodone-acetaminophen 10 mg-325 mg Tab RxNorm: 6168365 1-2 T ablet(s) PO TID 04/26/2011 No Stop Date Active as needed for pain - Previous quantity #240, will start dosing for #180 in April 2011 per Doctor Td. alprazolam 0.5 mg Tab RxNorm: 462251 1 Tablet(s) PO BID 04/25/2011 Inactive prn Klor-Con 8 mEq Tab RxNorm: 015744 1 Tablet(s) PO QD 03/30/20112010 Inactive Klor-Con 8 mEq Tab RxNorm: 875488 1 Tablet(s) PO QD 03/29/20112010 Inactive hydrocodone-acetaminophen 10 mg-325 mg Tab RxNorm: 3170244 1-2 T ablet(s) PO TID 03/20/2011 04/25/2011 Inactive as needed for pain - Previous quantity #240, will start dosing for #180 in April 2011 per Doctor Td. alprazolam 0.5 mg Tab RxNorm: 603090 1 Tablet(s) PO BID prn 011 03/30/2011 Inactive Ambien 10 mg Tab RxNorm: 851802 1 Tablet(s) PO QHS 03/01/2011 011 Inactive cyclobenzaprine 10 mg Tab RxNorm: 814144 1 Tablet(s) PO TID 011 03/18/2012 Inactive cyclobenzaprine 10 mg Tab RxNorm: 140754 1 Tablet(s) PO TID 011 01/08/2011 Inactive cyclobenzaprine 10 mg Tab RxNorm: 001636 1 Tablet(s) PO TID 011 12/20/2010 Inactive terbinafine 250 mg Tab RxNorm: 853253 1 Tablet(s) PO QD 12/12/2010 Inactive triamterene-hydrochlorothiazide 75 mg-50 mg Tab RxNorm: 3108 18 1 Tablet(s) PO QD 12/07/2010 06/04/2011 Inactive Klor-Con 8 8 mEq Tab RxNorm: 210983 1 Tablet(s) PO QD 12/07/201001/08 Inactive Premarin 1.25 mg Tab RxNorm: 254941 2 Tablet(s) PO QD 12/07/201001/08 Inactive clonidine 0.2 mg Tab RxNorm: 812830 1 Tablet(s) PO TID 12/07/2010 Inactive hydrocodone-acetaminophen 7.5 mg-650 mg Tab RxNorm: 974805 1 Ta blet(s) PO Q4H 12/05/2010 01/21/2019 Inactive hydrocodone-acetaminophen 7.5 mg-650 mg Tab RxNorm: 253035 1 Ta blet(s) PO Q4H 10/26/2010 11/14/2010 Inactive hydrocodone-acetaminophen 7.5 mg-650 mg Tab RxNorm: 391562 1 Ta blet(s) PO Q4H 10/13/2010 10/25/2010 Inactive hydrocodone-acetaminophen 7.5 mg-650 mg Tab RxNorm: 743970 1 Ta blet(s) PO Q4H 09/15/2010 09/12/2010 Inactive alprazolam 0.5 mg Tab RxNorm: 865228 1 Tablet(s) PO BID prn 011 09/12/2010 Inactive terbinafine 250 mg Tab RxNorm: 388898 1 Tablet(s) PO QD 09/05/2010 Inactive hydrocodone-acetaminophen 7.5 mg-650 mg Tab RxNorm: 535396 1 Ta blet(s) PO Q4H 08/29/2010 09/17/2010 Inactive alprazolam 0.5 mg Tab RxNorm: 191672 1 Tablet(s) PO BID prn 010 09/27/2010 Inactive alprazolam 0.5 mg Tab RxNorm: 763428 1 Tablet(s) PO BID prn 010 09/06/2010 Inactive Klor-Con 8 mEq Tab RxNorm: 330037 1 Tablet(s) PO QD 08/08/20102010 Inactive hydrocodone-acetaminophen 7.5 mg-650 mg Tab RxNorm: 643594 1 Ta blet(s) PO Q4H 08/08/2010 08/27/2010 Inactive Ambien 10 mg Tab RxNorm: 558235 1 Tablet(s) PO QHS 08/08/2010 010 Inactive clonidine 0.2 mg Tab RxNorm: 701032 1 Tablet(s) PO TID 08/08/2010 Inactive Premarin 1.25 mg Tab RxNorm: 851678 2 Tablet(s) PO QD 08/08/201009/12 Inactive Ambien 10 mg Tab RxNorm: 151325 1 Tablet(s) PO QHS 07/18/2010 010 Inactive alprazolam 0.5 mg Tab RxNorm: 183674 1 Tablet(s) PO BID prn 010 08/07/2010 Inactive hydrocodone-acetaminophen 7.5 mg-650 mg Tab RxNorm: 482678 1 Ta blet(s) PO Q4H 07/12/2010 07/31/2010 Inactive clonidine 0.2 mg Tab RxNorm: 783684 1 Tablet(s) PO TID 06/20/2010 Inactive terbinafine 250 mg Tab RxNorm: 390713 1 Tablet(s) PO QD 05/24/2010 Inactive Clonidine 0.2 mg Tab RxNorm: 755472 1 Tablet(s) PO TID 05/24/201006/2010 Inactive Ambien 10 mg Tab RxNorm: 572603 1 Tablet(s) PO QHS 05/24/2010 Inactive alprazolam 0.5 mg Tab RxNorm: 228365 1 Tablet(s) PO BID 05/24/2010 Inactive Klor-Con 8 mEq Tab RxNorm: 591310 1 Tablet(s) PO QD 05/24/20102009 Inactive alprazolam 0.5 mg Tab RxNorm: 298331 2 Tablet(s) PO QD prn 05/24/20 10 07/17/2010 Inactive triamterene-hydrochlorothiazide 75 mg-50 mg Tab RxNorm: 3108 18 1 Tablet(s) PO QD 05/24/2010 11/19/2010 Inactive Ambien 10 mg Tab RxNorm: 893593 1 Tablet(s) PO QHS 05/23/2010 010 Inactive Alprazolam 0.5 mg Tab RxNorm: 717178 2 Tablet(s) PO QD prn 05/23/20 10 05/23/2010 Inactive Premarin 1.25 mg Tab RxNorm: 323715 2 Tablet(s) PO QD 05/19/201007/12 Inactive Hydrocodone-Acetaminophen 7.5 mg-650 mg Tab RxNorm: 761031 1 Ta blet(s) PO Q4H 05/19/2010 03/20/2011 Inactive Prednisone 20 mg Tab RxNorm: 171606 1 Tablet(s) PO BID 05/17/2010 Inactive Prednisone 20 mg Tab RxNorm: 640898 1 Tablet(s) PO BID 05/06/201001/2010 Inactive Premarin 1.25 mg Tab RxNorm: 216970 Tablet(s) PO 2 M-W-F, and 1 Ol-Lc-Fsm-Sun 05/05/2010 08/02/2010 Inactive Premarin 1.25 mg Tab RxNorm: 446739 Tablet(s) PO 2 M-W-F, and 1 Ri-Kx-Uze-Sun 05/04/2010 05/04/2010 Inactive Premarin 1.25 mg Tab RxNorm: 766382 Tablet(s) PO 2 M-W-F, and 1 Sv-Ss-Quf-Sun 05/04/2010 05/03/2010 Inactive Prednisone 20 mg Tab RxNorm: 233676 1 Tablet(s) PO BID 04/27/2010 Inactive Alprazolam 0.5 mg Tab RxNorm: 319220 2 Tablet(s) PO QD prn 04/26/2005/22/2010 Inactive Clindamycin 300 mg Cap RxNorm: 510920 2 Capsule(s) PO TID 04/05/2010 04/18/2010 Inactive Terbinafine 250 mg Tab RxNorm: 100546 1 Tablet(s) PO QD 04/04/2010 Inactive Hydrocodone-Acetaminophen 7.5 mg-650 mg Tab RxNorm: 384998 1 Ta blet(s) PO Q4H 03/30/2010 04/18/2010 Inactive Avelox 400 mg Tab RxNorm: 364201 1 Tablet(s) PO QD 03/09/2010 010 Inactive Hydrocodone-Acetaminophen 7.5 mg-650 mg Tab RxNorm: 023369 1 Ta blet(s) PO Q4H 03/08/2010 03/27/2010 Inactive Alprazolam 0.5 mg Tab RxNorm: 242388 2 Tablet(s) PO QD prn 03/08/20 10 04/25/2010 Inactive Klor-Con 8 mEq Tab RxNorm: 768642 1 Tablet(s) PO QD when takes lasi x 03/07/2010 09/29/2019 Inactive Premarin 1.25 mg Tab RxNorm: 417031 1 Tablet(s) PO QD 03/03/201003/11 Inactive Alprazolam 0.5 mg Tab RxNorm: 626773 1 Tablet(s) PO BID PRN 010 No Stop Date Active triamterene-hydrochlorothiazide 75 mg-50 mg Tab RxNorm: 3108 18 1 Tablet(s) PO QD 02/09/2010 02/03/2011 Inactive Hydrocodone-Acetaminophen 10 mg-750 mg Tab RxNorm: 927933 1 Tablet(s) PO Q4H PRN 02/09/2010 03/20/2011 Inactive Clonidine 0.2 mg Tab RxNorm: 676604 1 Tablet(s) PO TID 01/13/201009/2009 Inactive Alprazolam 0.5 mg Tab RxNorm: 839866 1 Tablet(s) PO BID PRN 010 01/12/2010 Inactive Hydrocodone-Acetaminophen 10 mg-750 mg Tab RxNorm: 116310 1 Tablet(s) PO Q4H PRN 01/13/2010 01/12/2010 Inactive ANGELIQ 1 mg-0.5 mg Tab RxNorm: 5106031 1 Tablet(s) PO QD 12/27/2009 01/23/2010 Inactive Lasix 40 mg Tab RxNorm: 041744 1 Tablet(s) PO QAM 12/14/2009 06/11/20 10 Inactive Vitamin B12 1000mcg Tablet RxNorm: 1 Tablet(s) PO QD No Start Date Active cyclobenzaprine 10 mg tablet RxNorm: 681878 1 Tablet(s) PO TID as needed DO NOT USE WITH BACLOFEN No Start Date Active Vitamin D 5,000 unit Tab RxNorm: 1 Tablet(s) PO QD No Start Date Active vitamin E (dl, acetate) 400 unit Cap RxNorm: 982620 1 Capsule(s ) PO QD No Start Date Active Benadryl 25 mg Cap RxNorm: 4202868 Capsule(s) PO PRN No Start Date Inactive amitriptyline 100 mg tablet RxNorm: 137240 1 Tablet(s) PO QHS No St art Date 11/27/2016 Inactive Zithromax Z-Dustin 250 mg tablet RxNorm: 034453 Tablet(s) PO as di rected No Start Date 07/22/2013 Inactive Klor-Con 8 mEq tablet,extended release RxNorm: 863639 1 Tablet( s) PO BID No Start Date 07/28/2012 Inactive scopolamine 1.5 mg 72 hr Transderm Patch RxNorm: 447276 Application TD Q72H for motion sickness No Start Date 05/25/2013 Inactive Klonopin 1 mg tablet RxNorm: 691543 1-2 Tablet(s) PO QHS as nee ded for sleep No Start Date 06/20/2015 Inactive Klor-Con M20 mEq tablet,extended release RxNorm: 806869 2 Tablet(s) PO BID to use with lasix No Start Date 11/11/2013 Inactive Bystolic 5 mg tablet RxNorm: 115242 1 Tablet(s) PO QD No Start Date 1 Inactive Bystolic 10 mg tablet RxNorm: 340774 1 Tablet(s) PO BID No Start Da te 07/06/2015 Inactive Premarin 1.25 mg Tab RxNorm: 065233 Tablet(s) PO 2 --, and 1 Qf-Kl-Pku-Sun No Start Date 05/03/2010 Inactive baclofen 20 mg tablet RxNorm: 309132 1 Tablet(s) PO TID as needed for muscle spasm No Start Date 07/22/2015 Inactive hydrocodone-acetaminophen 7.5 mg-650 mg Tab RxNorm: 886681 1 Tablet(s) PO Q4H as needed for pain No Start Date 03/20/2011 Inactive albuterol sulfate 1.25 mg/3 mL Neb Solution RxNorm: 374933 1 Unit Dose INH Q4H 2boxes No Start Date 09/06/2015 Inactive Butrans 20 mcg/hour Transderm Patch RxNorm: 702229 1 TD WEEKLY apply to skin weekly after removing previous. No Start Date 07/22/2013 Inactive Medrol (Dustin) 4 mg tablets in a dose pack RxNorm: 631012 Tablet(s) PO As Directed No Start Date 07/30/2016 Inactive hydrocodone-acetaminophen 10 mg-325 mg Tab RxNorm: 8529562 1-2 Tablet(s) PO TID as needed for pain No Start Date 03/19/2011 Inactive Klonopin 1 mg tablet RxNorm: 583097 1 Tablet(s) PO QHS No Start Date 02/28/2016 Inactive honey topical RxNorm: topical No Start Date 06/16/2018 Inactive Clonidine 0.2 mg Tab RxNorm: 870391 1 Tablet(s) PO TID No Start Date 01/12/2010 Inactive ketorolac 10 mg tablet RxNorm: 551616 1 Tablet(s) PO Q8H No Start D ate 03/18/2012 Inactive as needed for headache Singulair 10 mg Tab RxNorm: 826420 1 Tablet(s) PO QD No Start Date Inactive Premarin 1.25 mg Tab RxNorm: 608152 1 Tablet(s) PO QD No Start Date 1 Inactive Flonase 50 mcg/Actuation Nasal [place] RxNorm: 1947041 1 [place] CECELIA AL BID No Start Date 03/18/2012 Inactive Terbinafine 250 mg Tab RxNorm: 429704 1 Tablet(s) PO QD No Start Da te 04/03/2010 Inactive Fexofenadine 180 mg Tab RxNorm: 9540338 1 Tablet(s) PO QD No Start Date 09/06/2015 Inactive baclofen 20 mg tablet RxNorm: 747881 1 Tablet(s) PO TID as needed N o Start Date 05/25/2014 Inactive Diovan 160 mg Tab RxNorm: 606568 1 Tablet(s) PO QD No Start Date 09/12 Inactive mupirocin 2 % topical ointment RxNorm: 939385 1 Application TOP QID No Start Date 04/25/2016 Inactive ZOFRAN ODT 4 mg Tab, Rapid Dissolve RxNorm: 770214 1 Tablet(s) PO Q4H No Start Date 03/18/2012 Inactive as needed for nausea and vomiting Alprazolam 0.5 mg Tab RxNorm: 430400 1 Tablet(s) PO BID PRN No Star t Date 01/12/2010 Inactive cyclobenzaprine 10 mg tablet RxNorm: 165853 1 Tablet(s) PO TID as needed for muscle spasm No Start Date 10/08/2017 Inactive Albuterol 0.083% Aerosol Solution RxNorm: 1 Appl ication INH Q4H Use one ampule every 4 hrs with nebulizer as needed for shortness of breath. No Start Date 10/09/2010 Inactive lorazepam 1 mg tablet RxNorm: 558955 1 1/2 Tablet(s) PO QHS No Star t Date 02/02/2016 Inactive Melatonin 3 mg Tab RxNorm: 671432 Tablet(s) PO PRN No Start Date 07/11 Inactive Medrol (Dustin) 4 mg Tabs in a Dose Pack RxNorm: 666864 Tablet(s) PO N o Start Date 11/28/2010 Inactive lorazepam 1 mg tablet RxNorm: 099075 1 Tablet(s) PO QHS as need ed for sleep No Start Date 01/30/2016 Inactive hydrocodone-acetaminophen 10 mg-325 mg Tab RxNorm: 0180816 1-2 Tablet(s) PO QID as needed for severe pain No Start Date 03/24/2012 Inactive celecoxib 200 mg capsule RxNorm: 347977 1 Capsule(s) PO BID No Star t Date 06/26/2019 Inactive amlodipine 5 mg-benazepril 20 mg capsule RxNorm: 934907 1 Capsu le(s) PO QD No Start Date 04/10/2017 Inactive Bystolic 20 mg tablet RxNorm: 892195 1/2 Tablet(s) PO QAM No Start Date 01/23/2016 Inactive Bystolic 20 mg tablet RxNorm: 390403 1 Tablet(s) PO QAM No Start Da te 04/25/2016 Inactive Ambien 10 mg Tab RxNorm: 334747 1 Tablet(s) PO QHS No Start Date 05/11 Inactive Klor-Con 8 mEq Tab RxNorm: 782025 1 Tablet(s) PO QD when takes lasix No Start Date 03/06/2010 Inactive aspirin 81 mg tablet RxNorm: 996895 1 Tablet(s) PO QD No Start Date 0 01/29/2018 Inactive hydrocodone-acetaminophen 10 mg-325 mg Tab RxNorm: 0051652 1-2 T ablet(s) PO QID No Start Date 01/10/2012 Inactive Bystolic 10 mg tablet RxNorm: 516920 1 Tablet(s) PO QAM take one daily in the morning. No Start Date 05/28/2013 Inactive nystatin 100,000 unit/mL Oral Susp RxNorm: 810040 5 Milliliter( s) PO QID No Start Date 03/18/2012 Inactive swish and spit scopolamine 1.5 mg 72 hr Transderm Patch RxNorm: 855140 1 Unit Dose TD Q72H for motion sickness No Start Date 12/23/2013 Inactive Hydrocodone-Acetaminophen 10 mg-750 mg Tab RxNorm: 042852 1 Tablet(s) PO Q4H PRN No Start Date 01/12/2010 Inactive Soma 350 mg tablet RxNorm: 351464 1 Tablet(s) PO TID as needed for spasm No Start Date 01/12/2013 Inactive baclofen 10 mg tablet RxNorm: 339107 1 Tablet(s) PO TID as needed for muscle spasm No Start Date 09/18/2019 Inactive Soma 350 mg Tab RxNorm: 137048 1 Tablet(s) PO TID for spasm No Star t Date 01/31/2012 Inactive Co Q-10 400 mg capsule RxNorm: 790681 1 Capsule(s) PO QD No Start D ate 01/21/2019 Inactive nystatin 100,000 unit/gram topical cream RxNorm: 302728 Applica tion TOP BID No Start Date 03/22/2015 Inactive Exforge 5 mg-160 mg Tab RxNorm: 680636 1 Tablet(s) PO QD No Start D ate 10/09/2010 Inactive Hydrocodone-Acetaminophen 7.5 mg-650 mg Tab RxNorm: 368067 1 Ta blet(s) PO Q4H No Start Date 03/07/2010 Inactive Robaxin-750 750 mg Tab RxNorm: 627679 1-2 Tablet(s) PO TID prn spasm No Start Date 05/21/2011 Inactive amlodipine 5 mg tablet RxNorm: 079527 1 Tablet(s) PO QHS No Start D ate 09/29/2015 Inactive oxycodone-acetaminophen 10 mg-325 mg tablet RxNorm: 7008918 1-2 Tablet(s) PO Q6H No Start Date 06/16/2018 Inactive Triamterene-Hydrochlorothiazide 75 mg-50 mg Tab RxNorm: 3108 18 1 Tablet(s) PO QD No Start Date 02/08/2010 Inactive Alprazolam 0.5 mg Tab RxNorm: 331179 2 Tablet(s) PO QD prn No Start Date 03/07/2010 Inactive Bystolic 20 mg tablet RxNorm: 737274 1 Tablet(s) PO QAM No Start Da te 08/17/2015 Inactive ketorolac 10 mg tablet RxNorm: 756808 1 Tablet(s) PO QID prn he adache No Start Date 07/17/2012 Inactive acyclovir 800 mg Tab RxNorm: 639702 1 Tablet(s) PO BID No Start Date 03/18/2012 Inactive duloxetine 60 mg capsule,delayed release RxNorm: 714734 1 Capsu le(s) PO QD No Start Date 09/29/2015 Inactive Norvasc 5 mg tablet RxNorm: 262068 1 Tablet(s) PO QHS No Start Date 1 10/18/2014 Inactive promethazine 25 mg tablet RxNorm: 235867 1 Tablet(s) PO Q8H use sparingly No Start Date 07/22/2013 Inactive alprazolam 0.5 mg tablet RxNorm: 601286 3 Tablet(s) PO QHS No Start Date 06/06/2015 Inactive Lunesta 3 mg tablet RxNorm: 615322 1 Tablet(s) PO QHS No Start Date 0 09/20/2017 Inactive hydrocodone-acetaminophen 10 mg-325 mg Tab RxNorm: 6952650 1-2 Tablet(s) PO TID as needed for pain No Start Date 12/10/2011 Inactive Coricidin HBP Cough & Cold 4 mg-30 mg Tab RxNorm: 5674929 Tablet (s) PO PRN No Start Date 10/09/2010 Inactive Bactroban 2 % Ointment RxNorm: 271049 Application TOP QID to so res No Start Date 02/22/2012 Inactive Flonase 50 mcg/actuation Nasal [place] RxNorm: 542918 2 [place] QHS No Start Date 03/03/2014 Inactive Medication Administered No Medication Administered data Immunizations Vaccine Codes Date Status Tetanus, Diptheria, Pertussis CVX: 115 02/27/2014 Results Observation Observation Code Item Item Code Result Date S ervice Location COMPREHENSIVE METABOLIC 51891 AST 15 U/L 2019 Unknown [facility] 73076 ALT 13 U/L 2019 Unknown [facility] 78180 BUN 12 mg/dL 2019 Unknown COMPREHENSIVE METABOLIC 00669 ALBUMIN 3.9 g/dL 2019 Unknown [facility] MET[facility]OLIC 05502 CHLORIDE 97 mmol/L 2019 Unknown COMPREHENSIVE METABOLIC 45610 Bili Total 0.4 mg/dL 09/29 Unknown COMPREHENSIVE METABOLIC 64727 ALK PHOS 130 U/L 2019 Unknown COMPREHENSIVE METABOLIC 79849 SODIUM 136 mmol/L 09/29 Unknown COMPREHENSIVE METABOLIC 33223 CREATININE 0.92 mg/dL 09/11 Unknown [facility]HENS[facility] MET[facility]OLIC 82417 CALCIUM 9.1 mg/dL 2019 Unknown [facility] METABOLIC 66271 POTASSIUM 4.4 mmol/L 09/29 Unknown COMPREHENSIVE METABOLIC 02250 Total Protein 6.2 g/dL Unknown COMPREHENSIVE METABOLIC 21972 Glucose 391 mg/dL 2019 Unknown COMPREHENSIVE METABOLIC 29869 Bicarbonate 30 mmol/L 09/11 Unknown COMPREHENSIVE METABOLIC 15091 AGAP 9 mmol/L 2019 Unknown MEAN GLUC 7919203 Calc Mean Gluc 332 mg/dL 09/29/2019 Unkn own COMPLETE BLOOD COUNT [id number] WBC 7.0 10e9/L 09/29/19 Unknown COMPLETE BLOOD COUNT [id number] RBC 4.69 10e12/L 2019 Unknown COMPLETE BLOOD COUNT 7787404 HEMOGLOBIN 14.6 g/dL 09/29/19 Unknown COMPLETE BLOOD COUNT 5874867 HEMATOCRIT 45.2 % 09/29/19 Unknown COMPLETE BLOOD COUNT [id number] MCV 96.4 fL 0 Unknown COMPLETE BLOOD COUNT 8053237 MCH 31.1 pg 0 Unknown COMPLETE BLOOD COUNT [id number] MCHC 32.3 g/dL 0 Unknown COMPLETE BLOOD COUNT 3836874 PLATELET COUNT 209 10e9/L Unknown COMPLETE BLOOD COUNT 6980698 Mean Plt Volume 9.8 fL Unknown COMPLETE BLOOD COUNT 5686167 Neut Auto 48.1 % 0 Unknown COMPLETE BLOOD COUNT 8734317 Lymph Auto 36.5 % 09/29/19 Unknown COMPLETE BLOOD COUNT 8892093 [place] Auto 8.6 % 0 Unknown COMPLETE BLOOD COUNT 7347505 RDW 13.4 % 0 Unknown COMPLETE BLOOD COUNT 8289612 Eos Auto 6.5 % 0 Unknown COMPLETE BLOOD COUNT 9791907 Baso Auto 0.3 % 0 Unknown COMPLETE BLOOD COUNT 7019732 Neutrophil Abs 3.37 10e9/L Unknown COMPLETE BLOOD COUNT 7582848 Lymphocyte Abs 2.56 10e9/L Unknown COMPLETE BLOOD COUNT 9846017 Monocyte Abs 0.60 10e9/L 09/11 Unknown COMPLETE BLOOD COUNT 3135234 Eosinophil Abs 0.46 10e9/L Unknown COMPLETE BLOOD COUNT 1941619 RDW-SD 45.9 fL 0 Unknown COMPLETE BLOOD COUNT [id number] Basophil Abs 0.02 10e9/L 09/11 Unknown LIPID GROUP 30651 Cholesterol 248 mg/dL 09/29/2019 Unkno wn LIPID GROUP 89778 Triglyceride 898 mg/dL 09/29/2019 Unkn own LIPID GROUP 09123 HDL CHOLESTEROL 41 mg/dL 09/29/2019 U nknown LIPID GROUP 89980 Chol/HDL Ratio 6.05 ratio 09/29/2019 U nknown LIPID GROUP 79853 NON-HDL Chol 207 mg/dL 09/29/2019 Unkn own LIPID GROUP 26393 LDL Cholesterol N/A Trig >400 020 Unknown GLYCOSYLATED HEMOGLOBIN TEST 24607 Hgb A1c 59392-1 13.2 % 0 09/29/2019 Unknown FREE T4 37677 T4 Free 0.75 ng/dL 09/29/2019 Unknown GFR CALC 5282908 GFR Non Afr Amr >60 mL/min 09/29/2019 Un known GFR CALC 9560024 GFR Afr Amr >60 mL/min 09/29/2019 Unknow n THYROID STIMULATING HORMONE 91889 TSH 4.245 uIU/mL 09/29/2019 Unknown COMPLETE BLOOD COUNT 5453232 WBC 10.7 10e9/L 018 Unknown COMPLETE BLOOD COUNT 1456563 RBC 4.59 10e12/L 2017 Unknown COMPLETE BLOOD COUNT 1009721 HEMOGLOBIN 14.8 g/dL 12/11/19 18 Unknown COMPLETE BLOOD COUNT 0776918 HEMATOCRIT 44.9 % 12/11/19 18 Unknown COMPLETE BLOOD COUNT 6844131 MCV 97.8 fL 8 Unknown COMPLETE BLOOD COUNT 2654917 MCH 32.2 pg 8 Unknown COMPLETE BLOOD COUNT 5625050 MCHC 33.0 g/dL 8 Unknown COMPLETE BLOOD COUNT 0668289 PLATELET COUNT 261 10e9/L 10/2017 Unknown COMPLETE BLOOD COUNT 1576209 Mean Plt Volume 9.5 fL 10/2017 Unknown COMPLETE BLOOD COUNT 7643774 Neut Auto 59.9 % 8 Unknown COMPLETE BLOOD COUNT 7925789 Lymph Auto 27.4 % 12/11/19 18 Unknown COMPLETE BLOOD COUNT 6372357 [place] Auto 8.2 % 8 Unknown COMPLETE BLOOD COUNT 1736387 RDW 13.3 % 8 Unknown COMPLETE BLOOD COUNT 1300705 Eos Auto 4.1 % 8 Unknown COMPLETE BLOOD COUNT 6195859 Baso Auto 0.4 % 8 Unknown COMPLETE BLOOD COUNT 0473190 Neutrophil Abs 6.41 10e9/L Unknown COMPLETE BLOOD COUNT 8290979 Lymphocyte Abs 2.93 10e9/L Unknown COMPLETE BLOOD COUNT [id number] Monocyte Abs 0.88 10e9/L 10/2017 Unknown COMPLETE BLOOD COUNT 5289719 Eosinophil Abs 0.44 10e9/L Unknown COMPLETE BLOOD COUNT 0962598 RDW-SD 46.2 fL 8 Unknown COMPLETE BLOOD COUNT 9073072 Basophil Abs 0.04 10e9/L 10/2017 Unknown THYROID STIMULATING HORMONE 76723 TSH 4.015 uIU/mL 12/10/2017 Unknown COMPREHENSIVE METABOLIC 92118 AST 25 U/L 2017 Unknown COMPREHENSIVE METABOLIC 86375 ALT 17 U/L 2017 Unknown COMPREHENSIVE METABOLIC 46094 BUN 19 mg/dL 2017 Unknown COMPREHENSIVE METABOLIC 45364 ALBUMIN 4.0 g/dL 2017 Unknown COMPREHENSIVE METABOLIC 00110 CHLORIDE 91 mmol/L 2017 Unknown COMPREHENSIVE METABOLIC 74600 Bili Total 0.5 mg/dL 12/10 Unknown COMPREHENSIVE METABOLIC 97337 ALK PHOS 75 U/L 2017 Unknown COMPREHENSIVE METABOLIC 90632 SODIUM 136 mmol/L 12/10 Unknown COMPREHENSIVE METABOLIC 89898 CREATININE 1.05 mg/dL 10/2017 Unknown COMPREHENSIVE METABOLIC 32858 CALCIUM 8.9 mg/dL 2017 Unknown COMPREHENSIVE METABOLIC 86546 POTASSIUM 3.4 mmol/L 12/10 Unknown COMPREHENSIVE METABOLIC 67917 Total Protein 6.5 g/dL Unknown COMPREHENSIVE METABOLIC 76948 Glucose 138 mg/dL 2017 Unknown COMPREHENSIVE METABOLIC 47071 Bicarbonate 35 mmol/L 10/2017 Unknown COMPREHENSIVE METABOLIC 33649 AGAP 10 mmol/L 2017 Unknown MEAN GLUC 8389783 Calc Mean Gluc 171 mg/dL 12/10/2017 Unkn own LIPID GROUP 13498 Cholesterol 204 mg/dL 12/10/2017 Unkno wn LIPID GROUP 25097 Triglyceride 411 mg/dL 12/10/2017 Unkn own LIPID GROUP 59885 HDL CHOLESTEROL 50 mg/dL 12/10/2017 U nknown LIPID GROUP 23198 Chol/HDL Ratio 4.08 ratio 12/10/2017 U nknown LIPID GROUP 44060 NON-HDL Chol 154 mg/dL 12/10/2017 Unkn own LIPID GROUP 39906 LDL Cholesterol N/A Trig >400 018 Unknown GLYCOSYLATED HEMOGLOBIN TEST 80363 Hgb A1c 40277-5 7.6 % 0 12/10/2017 Unknown FREE T4 51808 T4 Free 1.40 ng/dL 12/10/2017 Unknown GFR CALC 0286688 GFR Non Afr Amr 55 mL/min 12/10/2017 Unk nown GFR CALC 3051952 GFR Afr Amr >60 mL/min 12/10/2017 Unknow n GFR CALC 2578707 GFR Non Afr Amr 48 mL/min 06/28/2017 Unk nown GFR CALC 2723631 GFR Afr Amr 59 mL/min 06/28/2017 Unknown COMPREHENSIVE METABOLIC 37450 AST 32 U/L 2016 Unknown COMPREHENSIVE METABOLIC 69128 ALT 22 U/L 2016 Unknown COMPREHENSIVE METABOLIC 97286 BUN 23 mg/dL 2016 Unknown COMPREHENSIVE METABOLIC 06764 ALBUMIN 4.7 g/dL 2016 Unknown COMPREHENSIVE METABOLIC 24261 CHLORIDE 89 mmol/L 2016 Unknown COMPREHENSIVE METABOLIC 68310 Bili Total 0.5 mg/dL 06/28 Unknown COMPREHENSIVE METABOLIC 28841 ALK PHOS 90 U/L 2016 Unknown COMPREHENSIVE METABOLIC 21270 SODIUM 135 mmol/L 06/28 Unknown COMPREHENSIVE METABOLIC 32722 CREATININE 1.18 mg/dL 06/10 Unknown COMPREHENSIVE METABOLIC 58702 CALCIUM 9.7 mg/dL 2016 Unknown COMPREHENSIVE METABOLIC 32387 POTASSIUM 3.5 mmol/L 06/28 Unknown COMPREHENSIVE METABOLIC 76448 Total Protein 7.7 g/dL Unknown COMPREHENSIVE METABOLIC 55228 Glucose 129 mg/dL 2016 Unknown COMPREHENSIVE METABOLIC 93763 Bicarbonate 34 mmol/L 06/10 Unknown COMPREHENSIVE METABOLIC 50756 AGAP 12 mmol/L 2016 Unknown LIPID GROUP 83688 HDL TEST 64 MG/DL 08/27/2014 Unknown L[facility] GROUP 75198 TRIG 222 MG/DL 08/27/2014 Unknown L[facility] GROUP 35126 TEST LDL 209 MG/DL 08/27/2014 Unknown LIP[facility] GROUP 60269 CHOL 317 MG/DL 08/27/2014 Unknown [facility] 17772 RCHOL/HDL 4.95 RATIO 08/27/2014 Unknow n LIP[facility] GROUP 16293 NON-HDL CH 253 MG/DL 08/27/2014 Unknow n GFR CALC 0637862 GFR AA >60 ML/MIN 08/27/2014 Unknown GFR CALC 7605255 GFR NON-AA >60 ML/MIN 08/27/2014 Unknown COMPLETE BLOOD COUNT 7780008 WBC 7.0 10e9/L 08/27/20 14 Unknown COMPLETE BLOOD COUNT 4339588 RBC 4.98 10e12/L 2013 Unknown COMPLETE BLOOD COUNT 1091705 HGB 15.6 g/dL 4 Unknown COMPLETE BLOOD COUNT 0785904 HCT DET 46.5 % 4 Unknown COMPLETE BLOOD COUNT 6292003 MCV 93.4 fL 4 Unknown COMPLETE BLOOD COUNT 3743265 MCH 31.3 pg 4 Unknown COMPLETE BLOOD COUNT 9495857 MCHC 33.5 g/dL 4 Unknown COMPLETE BLOOD COUNT 6630497 PLT 309 10e9/L 08/27/20 14 Unknown COMPLETE BLOOD COUNT 5260965 MPV 9.6 fL 4 Unknown COMPLETE BLOOD COUNT 3776855 CADEN % 57.2 % 4 Unknown COMPLETE BLOOD COUNT 2078676 LY % 33.2 % 4 Unknown COMPLETE BLOOD COUNT 9209756 MON % 7.3 % 4 Unknown COMPLETE BLOOD COUNT 2637660 EOS % 2.0 % 4 Unknown COMPLETE BLOOD COUNT 9305854 BASO % 0.3 % 4 Unknown COMPLETE BLOOD COUNT 2906196 RDW 13.7 % 4 Unknown COMPLETE BLOOD COUNT 5499228 ABS CADEN 4.00 10e9/L 014 Unknown COMPLETE BLOOD COUNT 1619328 ABS LYMPH 2.32 10e9/L 014 Unknown COMPLETE BLOOD COUNT 8055240 ABS MONO 0.51 10e9/L 014 Unknown COMPLETE BLOOD COUNT 6329341 ABS EOS 0.14 10e9/L 014 Unknown COMPLETE BLOOD COUNT 1615498 ABS BASO 0.02 10e9/L 014 Unknown COMPLETE BLOOD COUNT 1864479 RDW-SD 45.1 fL 4 Unknown COMPREHENSIVE METABOLIC 65833 AST 13 U/L 2013 Unknown COMPREHENSIVE METABOLIC 86693 ALT 11 IU/L 2013 Unknown COMPREHENSIVE METABOLIC 94800 BUN 23 MG/DL 2013 Unknown COMPREHENSIVE METABOLIC 61540 ALBUMIN 4.4 GM/DL 2013 Unknown COMPREHENSIVE METABOLIC 66349 CHLORIDE 99 MMOL/L 2013 Unknown COMPREHENSIVE METABOLIC 04509 BILI TOT 0.5 MG/DL 2013 Unknown COMPREHENSIVE METABOLIC 65883 ALK PHOS 56 U/L 2013 Unknown COMPREHENSIVE METABOLIC 34565 SODIUM 138 MMOL/L 08/27 Unknown COMPREHENSIVE METABOLIC 35190 CREATININE 0.95 MG/DL 08/10 Unknown COMPREHENSIVE METABOLIC 58500 CALCIUM 9.8 MG/DL 2013 Unknown COMPREHENSIVE METABOLIC 89082 POTASSIUM 3.5 MMOL/L 08/27 Unknown COMPREHENSIVE METABOLIC 10083 PROT TOT 6.8 GM/DL 2013 Unknown COMPREHENSIVE METABOLIC 00626 Glucose 90 MG/DL 2013 Unknown COMPREHENSIVE METABOLIC 55000 BICARB 34 MMOL/L 2013 Unknown COMPREHENSIVE METABOLIC 40007 ANION GAP 5 MEQ/L 2013 Unknown LIPASE 07383 LIPASE 11 IU/L 07/21/2014 Unknown AMYLASE 05277 AMYLASE 39 IU/L 07/21/2014 Unknown HEMOGLOBIN A1C (GLYCOSYLATED) 7954434 A1C HPLC 69490-5 6.2 % 03/05/2013 Unknown THYROID STIMULATING HORMONE 49612 TSH 6.986 uIU/ML 03/05/2013 Unknown COMPLETE BLOOD COUNT 2055605 WBC 12.7 10e9/L 013 Unknown COMPLETE BLOOD COUNT 3992721 RBC 4.53 10e12/L 2012 Unknown COMPLETE BLOOD COUNT 1068170 HGB 14.7 g/dL 3 Unknown COMPLETE BLOOD COUNT 1865967 HCT DET 43.1 % 3 Unknown COMPLETE BLOOD COUNT 0519626 MCV 95.1 fL 3 Unknown COMPLETE BLOOD COUNT 6135907 MCH 32.5 pg 3 Unknown COMPLETE BLOOD COUNT 0845216 MCHC 34.1 g/dL 3 Unknown COMPLETE BLOOD COUNT 1039303 PLT 346 10e9/L 03/05/20 13 Unknown COMPLETE BLOOD COUNT 4321235 MPV 9.5 fL 3 Unknown COMPLETE BLOOD COUNT 8290995 CADEN % 67.6 % 3 Unknown COMPLETE BLOOD COUNT 6396259 LY % 22.1 % 3 Unknown COMPLETE BLOOD COUNT 6408976 MON % 6.6 % 3 Unknown COMPLETE BLOOD COUNT 3303699 EOS % 3.3 % 3 Unknown COMPLETE BLOOD COUNT 1959621 BASO % 0.4 % 3 Unknown COMPLETE BLOOD COUNT 0568228 RDW 14.0 % 3 Unknown COMPLETE BLOOD COUNT 2041004 ABS CADEN 8.59 10e9/L 013 Unknown COMPLETE BLOOD COUNT 0509167 ABS LYMPH 2.81 10e9/L 013 Unknown COMPLETE BLOOD COUNT 9494343 ABS MONO 0.84 10e9/L 013 Unknown COMPLETE BLOOD COUNT 6994951 ABS EOS 0.42 10e9/L 013 Unknown COMPLETE BLOOD COUNT 9108323 ABS BASO 0.05 10e9/L 013 Unknown COMPLETE BLOOD COUNT 7248265 RDW-SD 46.0 fL 3 Unknown FREE T4 34758 FREE T4 1.14 NG/DL 03/05/2013 Unknown COMPREHENSIVE METABOLIC 93339 AST 17 U/L 2012 Unknown COMPREHENSIVE METABOLIC 88547 ALT 12 IU/L 2012 Unknown COMPREHENSIVE METABOLIC 51362 BUN 24 MG/DL 2012 Unknown COMPREHENSIVE METABOLIC 06416 ALBUMIN 4.2 GM/DL 2012 Unknown COMPREHENSIVE METABOLIC 13020 CHLORIDE 93 MMOL/L 2012 Unknown COMPREHENSIVE METABOLIC 03744 BILI TOT 0.5 MG/DL 2012 Unknown COMPREHENSIVE METABOLIC 21411 ALK PHOS 75 U/L 2012 Unknown COMPREHENSIVE METABOLIC 81862 SODIUM 141 MMOL/L 03/05 Unknown COMPREHENSIVE METABOLIC 05403 CREATININE 1.36 MG/DL 02/09 Unknown COMPREHENSIVE METABOLIC 28717 CALCIUM 9.2 MG/DL 2012 Unknown COMPREHENSIVE METABOLIC 20881 POTASSIUM 3.1 MMOL/L 03/05 Unknown COMPREHENSIVE METABOLIC 20484 PROT TOT 6.9 GM/DL 2012 Unknown COMPREHENSIVE METABOLIC 71928 Glucose 123 MG/DL 2012 Unknown COMPREHENSIVE METABOLIC 57709 BICARB 36 MMOL/L 2012 Unknown COMPREHENSIVE METABOLIC 34609 ANION GAP 12 MEQ/L 2012 Unknown GFR CALC 1058319 GFR AA 51.0L ML/MIN 03/05/2013 Unknow n GFR CALC 1241846 GFR NON-AA 42.0L ML/MIN 03/05/2013 Unkno wn COMPREHENSIVE METABOLIC 90282 AST 14 U/L 2012 Unknown COMPREHENSIVE METABOLIC 53672 ALT 11 IU/L 2012 Unknown COMPREHENSIVE METABOLIC 96029 BUN 16 MG/DL 2012 Unknown COMPREHENSIVE METABOLIC 43987 ALBUMIN 4.2 GM/DL 2012 Unknown COMPREHENSIVE METABOLIC 05419 CHLORIDE 98 MMOL/L 2012 Unknown COMPREHENSIVE METABOLIC 06732 BILI TOT 0.4 MG/DL 2012 Unknown COMPREHENSIVE METABOLIC 14688 ALK PHOS 77 U/L 2012 Unknown COMPREHENSIVE METABOLIC 58695 SODIUM 139 MMOL/L 09/25 Unknown COMPREHENSIVE METABOLIC 45190 CREATININE 0.86 MG/DL 09/10 Unknown COMPREHENSIVE METABOLIC 74079 CALCIUM 9.5 MG/DL 2012 Unknown COMPREHENSIVE METABOLIC 41063 POTASSIUM 3.8 MMOL/L 09/25 Unknown COMPREHENSIVE METABOLIC 57831 PROT TOT 6.8 GM/DL 2012 Unknown COMPREHENSIVE METABOLIC 67280 Glucose 91 MG/DL 2012 Unknown COMPREHENSIVE METABOLIC 23109 BICARB 32 MMOL/L 2012 Unknown COMPREHENSIVE METABOLIC 37916 ANION GAP 9 MEQ/L 2012 Unknown FREE T4 33283 FREE T4 0.98 NG/DL 09/25/2012 Unknown THYROID STIMULATING HORMONE 04288 TSH 1.736 uIU/ML 09/25/2012 Unknown C-REACTIVE PROTEIN (CRP) QUANT 95774 CRP 2.3 MG/DL 09/25/2012 Unknown COMPLETE BLOOD COUNT 5803841 WBC 11.9 10e9/L 013 Unknown COMPLETE BLOOD COUNT 3316207 RBC 4.87 10e12/L 2012 Unknown COMPLETE BLOOD COUNT 2560758 HGB 15.1 g/dL 3 Unknown COMPLETE BLOOD COUNT 2113505 HCT DET 44.8 % 3 Unknown COMPLETE BLOOD COUNT 5242504 MCV 92.0 fL 3 Unknown COMPLETE BLOOD COUNT 2605285 MCH 31.0 pg 3 Unknown COMPLETE BLOOD COUNT 1885246 MCHC 33.7 g/dL 3 Unknown COMPLETE BLOOD COUNT 2785793 PLT 343 10e9/L 09/25/19 13 Unknown COMPLETE BLOOD COUNT 5014970 MPV 9.0 fL 3 Unknown COMPLETE BLOOD COUNT 1877146 CADEN % 68.2 % 3 Unknown COMPLETE BLOOD COUNT 2798741 LY % 22.4 % 3 Unknown COMPLETE BLOOD COUNT 4967194 MON % 6.4 % 3 Unknown COMPLETE BLOOD COUNT 0725522 EOS % 2.7 % 3 Unknown COMPLETE BLOOD COUNT 6345158 BASO % 0.3 % 3 Unknown COMPLETE BLOOD COUNT 3791416 RDW 13.8 % 3 Unknown COMPLETE BLOOD COUNT 4804106 ABS CADEN 8.12 10e9/L 013 Unknown COMPLETE BLOOD COUNT 2511998 ABS LYMPH 2.67 10e9/L 013 Unknown COMPLETE BLOOD COUNT 9267288 ABS MONO 0.76 10e9/L 013 Unknown COMPLETE BLOOD COUNT 3699521 ABS EOS 0.32 10e9/L 013 Unknown COMPLETE BLOOD COUNT 2984043 ABS BASO 0.04 10e9/L 013 Unknown COMPLETE BLOOD COUNT 1564380 RDW-SD 45.6 fL 3 Unknown GFR CALC 9766360 GFR AA >60 ML/MIN 09/25/2012 Unknown GFR CALC 1850642 GFR NON-AA >60 ML/MIN 09/25/2012 Unknown ERYTHROCYTE SEDIMENTATION RATE 96015 ESR 19 MM/HR 05/06/2012 Unknown VITAMIN B 12 FOLIC ACID 32429|35901 VIT B 12 922 PG/ML 04/11 Unknown VITAMIN B 12 FOLIC ACID 45280|74077 FOLIC ACID 13.6 NG/ML Unknown URIC ACID 25674 URIC ACID 7.8 MG/DL 05/06/2012 Unknown COMPLETE BLOOD COUNT 78661 WBC 11.9 10e9/L 012 Unknown COMPLETE BLOOD COUNT 45463 RBC 5.30 10e12/L 2011 Unknown COMPLETE BLOOD COUNT 87771 HGB 16.6 g/dL 2 Unknown COMPLETE BLOOD COUNT 11968 HCT DET 47.2 % 2 Unknown COMPLETE BLOOD COUNT 53860 MCV 89.1 fL 2 Unknown COMPLETE BLOOD COUNT 62961 MCH 31.3 pg 2 Unknown COMPLETE BLOOD COUNT 99470 MCHC 35.2 g/dL 2 Unknown COMPLETE BLOOD COUNT 87786 PLT 362 10e9/L 05/06/20 12 Unknown COMPLETE BLOOD COUNT 48332 MPV 9.4 fL 2 Unknown COMPLETE BLOOD COUNT 21640 CADEN % 68.2 % 2 Unknown COMPLETE BLOOD COUNT 38353 LY % 22.0 % 2 Unknown COMPLETE BLOOD COUNT 73539 MON % 6.9 % 2 Unknown COMPLETE BLOOD COUNT 88274 EOS % 2.6 % 2 Unknown COMPLETE BLOOD COUNT 89095 BASO % 0.3 % 2 Unknown COMPLETE BLOOD COUNT 78472 RDW 12.8 % 2 Unknown COMPLETE BLOOD COUNT 68563 ABS CADEN 8.12 10e9/L 012 Unknown COMPLETE BLOOD COUNT 79300 ABS LYMPH 2.62 10e9/L 012 Unknown COMPLETE BLOOD COUNT 53421 ABS MONO 0.82 10e9/L 012 Unknown COMPLETE BLOOD COUNT 43956 ABS EOS 0.31 10e9/L 012 Unknown COMPLETE BLOOD COUNT 24240 ABS BASO 0.04 10e9/L 012 Unknown COMPLETE BLOOD COUNT 04095 RDW-SD 41.5 fL 2 Unknown GFR CALC 3261185 GFR AA >60 ML/MIN 05/06/2012 Unknown GFR CALC 5946837 GFR NON-AA 58.0L ML/MIN 05/06/2012 Unkno wn FREE T4 22755 FREE T4 1.15 NG/DL 05/06/2012 Unknown THYROID STIMULATING HORMONE 30033 TSH 1.568 uIU/ML 05/06/2012 Unknown COMPREHENSIVE METABOLIC 49943 AST 20 U/L 2011 Unknown COMPREHENSIVE METABOLIC 08918 ALT 12 IU/L 2011 Unknown COMPREHENSIVE METABOLIC 03842 BUN 20 MG/DL 2011 Unknown COMPREHENSIVE METABOLIC 27054 ALBUMIN 4.5 GM/DL 2011 Unknown COMPREHENSIVE METABOLIC 20247 CHLORIDE 91 MMOL/L 2011 Unknown COMPREHENSIVE METABOLIC 59519 BILI TOT 0.4 MG/DL 2011 Unknown COMPREHENSIVE METABOLIC 25078 ALK PHOS 73 U/L 2011 Unknown COMPREHENSIVE METABOLIC 73492 SODIUM 139 MMOL/L 05/06 Unknown COMPREHENSIVE METABOLIC 77378 CREATININE 1.02 MG/DL 04/11 Unknown COMPREHENSIVE METABOLIC 85352 CALCIUM 9.7 MG/DL 2011 Unknown COMPREHENSIVE METABOLIC 25669 POTASSIUM 3.1 MMOL/L 05/06 Unknown COMPREHENSIVE METABOLIC 77873 PROT TOT 7.3 GM/DL 2011 Unknown COMPREHENSIVE METABOLIC 54798 Glucose 118 MG/DL 2011 Unknown COMPREHENSIVE METABOLIC 06400 BICARB 33 MMOL/L 2011 Unknown COMPREHENSIVE METABOLIC 94306 ANION GAP 15 MEQ/L 2011 Unknown Procedures Procedure Codes Date ROUTINE VENIPUNCTURE CPT-4: 35947 09/29/2019 URINALYSIS NONAUTO W/O SCOPE CPT-4: 31221 09/29/2019 COMPREHEN METABOLIC PANEL CPT-4: 65183 09/29/2019 LIPID PANEL CPT-4: 33823 09/29/2019 A1C HPLC CPT-4: 05865 09/29/2019 ASSAY OF FREE THYROXINE CPT-4: 01294 09/29/2019 ASSAY THYROID STIM HORMONE CPT-4: 28249 09/29/2019 COMPLETE CBC W/AUTO DIFF WBC CPT-4: 91412 09/29/2019 URINALYSIS NONAUTO W/O SCOPE CPT-4: 43240 09/30/2018 MICROALBUMIN QUANTITATIVE CPT-4: 91122 09/30/2018 CEFTRIAXONE SODIUM INJECTION CPT-4: J0696 06/19/2018 THER/PROPH/DIAG INJ SC/IM CPT-4: 70470 06/19/2018 CEFTRIAXONE SODIUM INJECTION CPT-4: J0696 06/17/2018 THER/PROPH/DIAG INJ SC/IM CPT-4: 84963 06/17/2018 THER/PROPH/DIAG INJ SC/IM CPT-4: 44487 05/16/2018 KETOROLAC TROMETHAMINE INJ CPT-4: J1885 05/16/2018 ONDANSETRON HCL INJECTION CPT-4: J2405 05/16/2018 THER/PROPH/DIAG INJ SC/IM CPT-4: 57404 05/16/2018 ROUTINE VENIPUNCTURE CPT-4: 47373 03/20/2018 COMPREHEN METABOLIC PANEL CPT-4: 57573 03/20/2018 DEXAMETHASONE SODIUM PHOS CPT-4: J1100 02/11/2018 THER/PROPH/DIAG INJ SC/IM CPT-4: 44379 02/11/2018 TRIAMCINOLONE ACET INJ NOS CPT-4: J3301 02/11/2018 CEFTRIAXONE SODIUM INJECTION CPT-4: J0696 02/01/2018 THER/PROPH/DIAG INJ SC/IM CPT-4: 06517 02/01/2018 CEFTRIAXONE SODIUM INJECTION CPT-4: J0696 01/30/2018 THER/PROPH/DIAG INJ SC/IM CPT-4: 41596 01/30/2018 ROUTINE VENIPUNCTURE CPT-4: 05783 12/10/2017 ASSAY OF FREE THYROXINE CPT-4: 02983 12/10/2017 ASSAY THYROID STIM HORMONE CPT-4: 53289 12/10/2017 COMPREHEN METABOLIC PANEL CPT-4: 09390 12/10/2017 COMPLETE CBC W/AUTO DIFF WBC CPT-4: 34499 12/10/2017 LIPID PANEL CPT-4: 05253 12/10/2017 A1C HPLC CPT-4: 08932 12/10/2017 CEFTRIAXONE SODIUM INJECTION CPT-4: J0696 12/10/2017 THER/PROPH/DIAG INJ SC/IM CPT-4: 82328 12/10/2017 CEFTRIAXONE SODIUM INJECTION CPT-4: J0696 12/07/2017 THER/PROPH/DIAG INJ SC/IM CPT-4: 15084 12/07/2017 DEXAMETHASONE SODIUM PHOS CPT-4: J1100 12/07/2017 THER/PROPH/DIAG INJ SC/IM CPT-4: 12132 12/07/2017 CEFTRIAXONE SODIUM INJECTION CPT-4: J0696 10/08/2017 THER/PROPH/DIAG INJ SC/IM CPT-4: 60762 10/08/2017 CEFTRIAXONE SODIUM INJECTION CPT-4: J0696 09/21/2017 THER/PROPH/DIAG INJ SC/IM CPT-4: 85562 09/21/2017 CEFTRIAXONE SODIUM INJECTION CPT-4: J0696 09/20/2017 THER/PROPH/DIAG INJ SC/IM CPT-4: 15862 09/20/2017 REMOVAL OF NAIL PLATE CPT-4: 64735 08/29/2017 THER/PROPH/DIAG INJ SC/IM CPT-4: 27357 08/29/2017 TRIAMCINOLONE ACET INJ NOS CPT-4: J3301 08/29/2017 CEFTRIAXONE SODIUM INJECTION CPT-4: J0696 08/29/2017 THER/PROPH/DIAG INJ SC/IM CPT-4: 69779 08/29/2017 DESTRUCT PREMALG LESION (Cryosurgery) CPT-4: 20671 ROUTINE VENIPUNCTURE CPT-4: 96787 06/27/2017 ASSAY OF FREE THYROXINE CPT-4: 75337 06/27/2017 ASSAY THYROID STIM HORMONE CPT-4: 69841 06/27/2017 COMPREHEN METABOLIC PANEL CPT-4: 57093 06/27/2017 COMPLETE CBC W/AUTO DIFF WBC CPT-4: 07100 06/27/2017 EXC TR-EXT B9+REECE 0.5 CM< CPT-4: 33616 01/24/2017 THER/PROPH/DIAG INJ SC/IM CPT-4: 58282 08/02/2016 DEXAMETHASONE SODIUM PHOS CPT-4: J1100 08/02/2016 DESTRUCT PREMALG LESION (Cryosurgery) CPT-4: 28597 EXC TR-EXT B9+REECE 0.5 CM< CPT-4: 82590 08/01/2016 AEROBIC WOUND CULTURE & STN CPT-4: 74433 07/06/2016 CEFTRIAXONE SODIUM INJECTION CPT-4: J0696 05/25/2016 THER/PROPH/DIAG INJ SC/IM CPT-4: 30727 05/25/2016 THER/PROPH/DIAG INJ SC/IM CPT-4: 60831 04/26/2016 DEXAMETHASONE SODIUM PHOS CPT-4: J1100 04/26/2016 CEFTRIAXONE SODIUM INJECTION CPT-4: J0696 04/26/2016 THER/PROPH/DIAG INJ SC/IM CPT-4: 36515 04/26/2016 THER/PROPH/DIAG INJ SC/IM CPT-4: 69514 02/09/2016 TRIAMCINOLONE ACET INJ NOS CPT-4: J3301 02/09/2016 URINALYSIS NONAUTO W/O SCOPE CPT-4: 85283 01/24/2016 URINE CULTURE/ COLONY COUNT CPT-4: 13726 01/24/2016 THER/PROPH/DIAG INJ SC/IM CPT-4: 42228 12/08/2015 TRIAMCINOLONE ACET INJ NOS CPT-4: J3301 12/08/2015 THER/PROPH/DIAG INJ SC/IM CPT-4: 57849 10/07/2015 TRIAMCINOLONE ACET INJ NOS CPT-4: J3301 10/07/2015 DESTRUCT PREMALG LESION (Cryosurgery) CPT-4: 50308 THER/PROPH/DIAG INJ SC/IM CPT-4: 25564 03/16/2015 METHYLPREDNISOLONE 40 MG INJ CPT-4: J1030 03/16/2015 DESTRUCT PREMALG LESION (Cryosurgery) CPT-4: 04217 THER/PROPH/DIAG INJ SC/IM CPT-4: 57984 09/11/2014 METHYLPREDNISOLONE 40 MG INJ CPT-4: J1030 09/11/2014 TRIAMCINOLONE ACET INJ NOS CPT-4: J3301 09/11/2014 CEFTRIAXONE SODIUM INJECTION CPT-4: J0696 09/11/2014 THER/PROPH/DIAG INJ SC/IM CPT-4: 77688 09/11/2014 ROUTINE VENIPUNCTURE CPT-4: 84263 08/27/2014 COMPREHEN METABOLIC PANEL CPT-4: 25239 08/27/2014 COMPLETE CBC W/AUTO DIFF WBC CPT-4: 00617 08/27/2014 LIPID PANEL CPT-4: 33559 08/27/2014 ROUTINE VENIPUNCTURE CPT-4: 77376 07/21/2014 ASSAY OF AMYLASE CPT-4: 80936 07/21/2014 ASSAY OF LIPASE CPT-4: 13247 07/21/2014 THER/PROPH/DIAG INJ SC/IM CPT-4: 46371 07/15/2014 TRIAMCINOLONE ACET INJ NOS CPT-4: J3301 07/15/2014 ROUTINE VENIPUNCTURE CPT-4: 95207 05/14/2014 ASSAY OF FREE THYROXINE CPT-4: 72326 05/14/2014 ASSAY THYROID STIM HORMONE CPT-4: 51337 05/14/2014 COMPREHEN METABOLIC PANEL CPT-4: 05592 05/14/2014 COMPLETE CBC W/AUTO DIFF WBC CPT-4: 65500 05/14/2014 LIPID PANEL CPT-4: 28301 05/14/2014 CEFTRIAXONE SODIUM INJECTION CPT-4: J0696 04/21/2014 THER/PROPH/DIAG INJ SC/IM CPT-4: 04371 04/21/2014 THER/PROPH/DIAG INJ SC/IM CPT-4: 94509 04/21/2014 TRIAMCINOLONE ACET INJ NOS CPT-4: J3301 04/21/2014 THER/PROPH/DIAG INJ SC/IM CPT-4: 61183 03/04/2014 METHYLPREDNISOLONE 40 MG INJ CPT-4: J1030 03/04/2014 TRIAMCINOLONE ACET INJ NOS CPT-4: J3301 03/04/2014 CEFTRIAXONE SODIUM INJECTION CPT-4: J0696 03/04/2014 THER/PROPH/DIAG INJ SC/IM CPT-4: 56509 03/04/2014 TDAP VACCINE 7 YRS/> IM CPT-4: 16367 02/27/2014 IMMUNIZATION ADMIN CPT-4: 05534 02/27/2014 DESTRUCT PREMALG LESION (Cryosurgery) CPT-4: 36024 DESTRUCT PREMALG LES 2-14 CPT-4: 67066 01/13/2014 THER/PROPH/DIAG INJ SC/IM CPT-4: 01507 10/21/2013 METHYLPREDNISOLONE 40 MG INJ CPT-4: J1030 10/21/2013 TRIAMCINOLONE ACET INJ NOS CPT-4: J3301 10/21/2013 CEFTRIAXONE SODIUM INJECTION CPT-4: J0696 08/27/2013 THER/PROPH/DIAG INJ SC/IM CPT-4: 08195 08/27/2013 THER/PROPH/DIAG INJ SC/IM CPT-4: 08097 08/27/2013 METHYLPREDNISOLONE 40 MG INJ CPT-4: J1030 08/27/2013 TRIAMCINOLONE ACET INJ NOS CPT-4: J3301 08/27/2013 THER/PROPH/DIAG INJ SC/IM CPT-4: 91894 06/23/2013 METHYLPREDNISOLONE 40 MG INJ CPT-4: J1030 06/23/2013 TRIAMCINOLONE ACET INJ NOS CPT-4: J3301 06/23/2013 THER/PROPH/DIAG INJ SC/IM CPT-4: 85080 05/26/2013 METHYLPREDNISOLONE 40 MG INJ CPT-4: J1030 05/26/2013 TRIAMCINOLONE ACET INJ NOS CPT-4: J3301 05/26/2013 ROUTINE VENIPUNCTURE CPT-4: 70764 03/05/2013 ASSAY OF FREE THYROXINE CPT-4: 64376 03/05/2013 ASSAY THYROID STIM HORMONE CPT-4: 08521 03/05/2013 COMPREHEN METABOLIC PANEL CPT-4: 39834 03/05/2013 COMPLETE CBC W/AUTO DIFF WBC CPT-4: 96063 03/05/2013 A1C GLYCOSYLATED HEMOGLOBIN TEST CPT-4: 11527 013 DRAIN/INJECT JOINT/BURSA CPT-4: 42261 12/04/2012 METHYLPREDNISOLONE 40 MG INJ CPT-4: J1030 12/04/2012 TRIAMCINOLONE ACET INJ NOS CPT-4: J3301 12/04/2012 CEFTRIAXONE SODIUM INJECTION CPT-4: J0696 11/21/2012 THER/PROPH/DIAG INJ SC/IM CPT-4: 46300 11/21/2012 THER/PROPH/DIAG INJ SC/IM CPT-4: 60223 10/14/2012 METHYLPREDNISOLONE 40 MG INJ CPT-4: J1030 10/14/2012 TRIAMCINOLONE ACET INJ NOS CPT-4: J3301 10/14/2012 URINALYSIS NONAUTO W/O SCOPE CPT-4: 62933 09/27/2012 ROUTINE VENIPUNCTURE CPT-4: 81467 09/25/2012 ASSAY OF FREE THYROXINE CPT-4: 46910 09/25/2012 ASSAY THYROID STIM HORMONE CPT-4: 82425 09/25/2012 COMPREHEN METABOLIC PANEL CPT-4: 94974 09/25/2012 COMPLETE CBC W/AUTO DIFF WBC CPT-4: 30954 09/25/2012 C-REACTIVE PROTEIN CPT-4: 78191 09/25/2012 THER/PROPH/DIAG INJ SC/IM CPT-4: 10179 08/29/2012 METHYLPREDNISOLONE 40 MG INJ CPT-4: J1030 08/29/2012 TRIAMCINOLONE ACET INJ NOS CPT-4: J3301 08/29/2012 DESTRUCT PREMALG LESION (Cryosurgery) CPT-4: 43641 THER/PROPH/DIAG INJ SC/IM CPT-4: 99369 05/06/2012 METHYLPREDNISOLONE 40 MG INJ CPT-4: J1030 05/06/2012 TRIAMCINOLONE ACET INJ NOS CPT-4: J3301 05/06/2012 VITAMIN B 12 FOLIC ACID CPT-4: 27012|83038 05/06/2012 RBC SED RATE AUTOMATED CPT-4: 49085 05/06/2012 ROUTINE VENIPUNCTURE CPT-4: 03251 05/06/2012 ASSAY OF FREE THYROXINE CPT-4: 73091 05/06/2012 ASSAY THYROID STIM HORMONE CPT-4: 41470 05/06/2012 COMPREHEN METABOLIC PANEL CPT-4: 41167 05/06/2012 COMPLETE CBC W/AUTO DIFF WBC CPT-4: 01475 05/06/2012 ASSAY OF BLOOD/URIC ACID CPT-4: 37502 05/06/2012 THER/PROPH/DIAG INJ SC/IM CPT-4: 55997 03/19/2012 KETOROLAC TROMETHAMINE INJ CPT-4: J1885 03/19/2012 KETOROLAC TROMETHAMINE INJ CPT-4: J1885 01/30/2012 THER/PROPH/DIAG INJ SC/IM CPT-4: 45439 01/30/2012 PROMETHAZINE HCL INJECTION CPT-4: J2550 01/30/2012 THER/PROPH/DIAG INJ SC/IM CPT-4: 03733 01/24/2012 METHYLPREDNISOLONE 40 MG INJ CPT-4: J1030 01/24/2012 TRIAMCINOLONE ACET INJ NOS CPT-4: J3301 01/24/2012 THER/PROPH/DIAG INJ SC/IM CPT-4: 46154 09/13/2011 KETOROLAC TROMETHAMINE INJ CPT-4: J1885 09/13/2011 THER/PROPH/DIAG INJ SC/IM CPT-4: 52003 09/13/2011 PROMETHAZINE HCL INJECTION CPT-4: J2550 09/13/2011 CEFTRIAXONE SODIUM INJECTION CPT-4: J0696 07/20/2011 THER/PROPH/DIAG INJ SC/IM CPT-4: 61850 07/20/2011 THER/PROPH/DIAG INJ SC/IM CPT-4: 58613 07/20/2011 METHYLPREDNISOLONE INJECTION CPT-4: J2930 07/20/2011 URINALYSIS NONAUTO W/O SCOPE CPT-4: 66861 05/09/2011 CEFTRIAXONE SODIUM INJECTION CPT-4: J0696 05/09/2011 THER/PROPH/DIAG INJ SC/IM CPT-4: 51380 05/09/2011 THER/PROPH/DIAG INJ SC/IM CPT-4: 68809 05/09/2011 PROMETHAZINE HCL INJECTION CPT-4: J2550 05/09/2011 HYDRATION IV INFUSION INIT CPT-4: 17168 05/09/2011 DESTRUCT PREMALG LESION (Cryosurgery) CPT-4: 11491 DESTRUCT PREMALG LES 2-14 CPT-4: 88823 07/19/2010 REMOVAL OF SKIN TAGS <W/15 CPT-4: 30629 05/30/2010 THER/PROPH/DIAG INJ SC/IM CPT-4: 54767 04/05/2010 CEFTRIAXONE SODIUM INJECTION CPT-4: J0696 04/05/2010 TRIAMCINOLONE ACET INJ NOS CPT-4: J3301 04/05/2010 METHYLPREDNISOLONE 40 MG INJ CPT-4: J1030 04/05/2010 THER/PROPH/DIAG INJ SC/IM CPT-4: 94626 04/05/2010 TRIAMCINOLONE ACET INJ NOS CPT-4: J3301 03/09/2010 METHYLPREDNISOLONE 40 MG INJ CPT-4: J1030 03/09/2010 THER/PROPH/DIAG INJ SC/IM CPT-4: 55946 03/09/2010 THER/PROPH/DIAG INJ SC/IM CPT-4: 73139 03/09/2010 CEFTRIAXONE SODIUM INJECTION CPT-4: J0696 03/09/2010 Vital Signs Date Vital 10/07/2019 Blood Pressure 1: 134/82 Code: 8480-6 Heart Rate 1: 105 bpm Respiratory Rate: 17 bpm SpO2: 96% Temperature: 36.8 (C) / 98.2 (F) We ight: 198 lbs 09/30/2019 Blood Pressure 1: 132/80 Code: 8480-6 BMI: 35.8 Code: 30173-8 Heart Rate 1: 88 bpm Height: 5'4" Respiratory Rate: 20 bpm SpO2: 95% Tempera ture: 36.9 (C) / 98.5 (F) Weight: 210 lbs 05/28/2019 Blood Pressure 1: 126/82 Code: 8480-6 BMI: 35.0 Code: 52667-5 Heart Rate 1: 88 bpm Height: 5'4" [...] 1: 128/90 Code: 8480-6 BMI: 37.2 Code: 29819-6 Heart Rate 1: 84 bpm Height: 5'4" Respiratory Rate: 20 bpm SpO2: 95% Tempera ture: 36.6 (C) / 97.8 (F) Weight: 217 lbs 08/27/2018 Blood Pressure 1: 128/88 Code: 8480-6 BMI: 38.3 Code: 04998-0 Heart Rate 1: 84 bpm Height: 5'4" [...] 1: 119/72 Code: 8480-6 BMI: 37.4 Code: 89821-0 Heart Rate 1: 82 bpm Height: 5'4" Respiratory Rate: 12 bpm SpO2: 94% Tempera ture: 35.2 (C) / 95.4 (F) Weight: 218 lbs 12/18/2017 Blood Pressure 1: 128/86 Code: 8480-6 BMI: 37.8 Code: 44076-6 Heart Rate 1: 84 bpm Height: 5'4" [...] 1: 128/82 Code: 8480-6 BMI: 35.5 Code: 28087-2 Heart Rate 1: 84 bpm Height: 5'4" [...] 1: 128/82 Code: 8480-6 BMI: 30.2 Code: 64976-4 Heart Rate 1: 80 bpm Height: 5'4" [...] 1: 128/86 Code: 8480-6 BMI: 32.8 Code: 86355-3 Heart Rate 1: 66 bpm Height: 5'4" Respiratory Rate: 18 bpm Temperature: 36 .3 (C) / 97.3 (F) Weight: 191 lbs 06/23/2013 Blood Pressure 1: 132/94 Code: 8480-6 BMI: 34.0 Code: 33815-8 Heart Rate 1: 84 bpm Height: 5'4" Respiratory Rate: 20 bpm Temperature: 36 .8 (C) / 98.2 (F) Weight: 198 lbs 05/26/2013 Blood Pressure 1: 114/80 Code: 8480-6 BMI: 35.0 Code: 85618-5 Heart Rate 1: 80 bpm Height: 5'4" Respiratory Rate: 20 bpm Temperature: 36 .4 (C) / 97.6 (F) Weight: 204 lbs 04/16/2013 Blood Pressure 1: 114/82 Code: 8480-6 BMI: 36.7 Code: 05443-3 Heart Rate 1: 84 bpm Height: 5'4" Respiratory Rate: 20 bpm Temperature: 36 .7 (C) / 98.0 (F) Weight: 214 lbs 03/05/2013 Blood Pressure 1: 136/90 Code: 8480-6 BMI: 37.1 Code: 94521-1 Heart Rate 1: 84 bpm Height: 5'4" [...] 1: 168/114 Code: 8480-6 BMI: 36.2 Code: 45687-5 Heart Rate 1: 104 bpm Height: 5'4" Respiratory Rate: 20 bpm Temperature: 36 .8 (C) / 98.2 (F) Weight: 211 lbs 11/22/2012 Blood Pressure 1: 128/90 Code: 8480-6 Heart Rate 1: 88 bpm Respiratory Rate: 20 bpm SpO2: 96% Temperature: 36.8 (C) / 98.2 (F) 11/21/2012 Blood Pressure 1: 146/100 Code: 8480-6 BMI: 35.7 Code: 67663-4 Heart Rate 1: 96 bpm Height: 5'4" [...] 1: 138/100 Code: 8480-6 BMI: 35.7 Code: 00504-6 Heart Rate 1: 96 bpm Height: 5'4" Respiratory Rate: 20 bpm Temperature: 36 .8 (C) / 98.2 (F) Weight: 208 lbs 05/06/2012 Blood Pressure 1: 154/102 Code: 8480-6 BMI: 34.7 Code: 37005-1 Heart Rate 1: 116 bpm Height: 5'4" Respiratory Rate: 20 bpm Temperature: 36 .8 (C) / 98.2 (F) Weight: 202 lbs 04/03/2012 Blood Pressure 1: 134/94 Code: 8480-6 BMI: 34.8 Code: 68481-1 Heart Rate 1: 108 bpm Height: 5'4" Respiratory Rate: 20 bpm Temperature: 36 .8 (C) / 98.2 (F) Weight: 203 lbs 03/19/2012 Blood Pressure 1: 148/106 Code: 8480-6 BMI: 35.0 Code: 12353-3 Heart Rate 1: 100 bpm Height: 5'4" Respiratory Rate: 20 bpm Temperature: 36 .6 (C) / 97.9 (F) Weight: 204 lbs 02/22/2012 Blood Pressure 1: 146/94 Code: 8480-6 He art Rate 1: 88 bpm 02/21/2012 Blood Pressure 1: 172/120 Code: 8480-6 B lood Pressure 2: 152/106 Code: 8480-6 Heart Rate 1: 116 bpm 02/20/2012 Blood Pressure 1: 160/100 Code: 8480-6 BMI: 32.0 Code: 32701-3 Heart Rate 1: 84 bpm Height: 5'7" Temperature: 36.5 (C) / 97.7 (F) Weight: 204 lbs 01/30/2012 Blood Pressure 1: 152/110 Code: 8480-6 BMI: 32.0 Code: 01318-9 Heart Rate 1: 116 bpm Height: 5'7" Respiratory Rate: 20 bpm Temperature: 37 .0 (C) / 98.6 (F) Weight: 204 lbs 01/24/2012 Blood Pressure 1: 146/100 Code: 8480-6 BMI: 32.0 Code: 95138-7 Heart Rate 1: 100 bpm Height: 5'7" Respiratory Rate: 20 bpm Temperature: 36 .7 (C) / 98.0 (F) Weight: 204 lbs 01/10/2012 Blood Pressure 1: 156/94 Code: 8480-6 BMI: 32.6 Code: 38372-0 Heart Rate 1: 72 bpm Height: 5'7" Respiratory Rate: 20 bpm Temperature: 36 .8 (C) / 98.2 (F) Weight: 208 lbs 12/11/2011 Blood Pressure 1: 146/100 Code: 8480-6 Heart Rat e 1: 116 bpm Height: 5'7" Respiratory Rate: 20 bpm Temperature: 36.9 (C) / 98.4 (F) We ight: 11/09/2011 Blood Pressure 1: 148/96 Code: 8480-6 BMI: 32.1 Code: 65734-2 Heart Rate 1: 116 bpm Height: 5'7" Respiratory Rate: 20 bpm Temperature: 36 .7 (C) / 98.0 (F) Weight: 205 lbs 09/13/2011 Blood Pressure 1: 126/88 Code: 8480-6 Heart Rate 1: 88 bpm Height: 5'7" Respiratory Rate: 20 bpm Temperature: 36.9 (C) / 98.4 (F) We ight: 08/31/2011 Blood Pressure 1: 118/82 Code: 8480-6 BMI: 32.0 Code: 07397-3 Heart Rate 1: 80 bpm Height: 5'7" Temperature: 36.4 (C) / 97.6 (F) Weight: 204 lbs 07/06/2011 Blood Pressure 1: 128/86 Code: 8480-6 BMI: 30.9 Code: 26421-1 Heart Rate 1: 92 bpm Height: 5'7" Respiratory Rate: 20 bpm Temperature: 36 .9 (C) / 98.4 (F) Weight: 197 lbs 06/06/2011 Blood Pressure 1: 112/74 Code: 8480-6 BMI: 31.0 Code: 37104-2 Heart Rate 1: 72 bpm Height: 5'7" [...] 1: 128/92 Code: 8480-6 BMI: 33.6 Code: 83009-1 Heart Rate 1: 104 bpm Height: 5'4" [...] Check-up Encounters Encounter Performer Location Codes Date ([id number]) OFFICE/OUTPATIENT VISIT EST Diagnosis: Ingrowing nail[ICD10: L60.0] Diagnosis: Type 2 diabetes mellitus with hyperglycemia[ICD10: E11.65] Kathleen APPIAH DO [facility] CPT-4: 27593 10/07/2019 ([id number]) OFFICE/OUTPATIENT VISIT EST Diagnosis: DM w/o complication type II, uncontrolled[ICD10: E11.65] Diagnosis: Hypertriglyceridemia[ICD10: E78.1] Diagnosis: Essential hypertension[ICD10: I10] María Elena WAYNDER [facility] CPT-4: 04265 09/30/2019 ([id number]) NURSE/OUTPATIENT VISIT EST Diagnosis: Essential (primary) hypertension[ICD10: I10] Diagnosis: Cervicalgia[ICD10: M54.2] Diagnosis: Hyperglycemia, unspecified[ICD10: R73.9] Diagnosis: Mixed hyperlipidemia[ICD10: E78.2] María Elena JEAN Fabiola APPIAH [facility] CPT-4: 80544 09/29/2019 ([id number]) OFFICE/OUTPATIENT VISIT EST Diagnosis: Essential (primary) hypertension[ICD10: I10] Diagnosis: Fall from bed, sequela[ICD10: W06.XXXS] María Elena REED LucioJj TD [employer] [facility] CPT-4: 90322 05/28/2019 ([id number]) NURSE/OUTPATIENT VISIT EST Diagnosis: Essential (primary) hypertension[ICD10: I10] María Elena JUARES Fabiola APPIAH [facility] CPT-4: 13896 05/19/2019 ([id number]) OFFICE/OUTPATIENT VISIT EST Diagnosis: Essential (primary) hypertension[ICD10: I10] Diagnosis: Type 2 diabetes mellitus with hyperglycemia[ICD10: E11.65] Diagnosis: Intervertebral disc disorders with radiculopathy, 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] Diagnosis: Hormone replacement therapy[ICD10: Z79.890] María Elena JUARES Fabiola APPIAH [facility] CPT-4: 74855 01/22/2019 ([id number]) OFFICE/OUTPATIENT VISIT EST Diagnosis: Essential (primary) hypertension[ICD10: I10] Diagnosis: Type 2 diabetes mellitus with hyperglycemia[ICD10: E11.65] María Elena JUARES Fabiola APPIAH [facility] CPT-4: 37464 09/30/2018 ([id number]) OFFICE/OUTPATIENT VISIT EST Diagnosis: Pain in left elbow[ICD10: M25.522] Diagnosis: Acute stress reaction[ICD10: F43.0] Diagnosis: Primary insomnia[ICD10: F51.01] Diagnosis: Abnormal weight gain[ICD10: R63.5] María Elena JEAN Fabiola APPIAH [facility] CPT-4: 96344 08/27/2018 ([id number]) OFFICE/OUTPATIENT VISIT EST Diagnosis: Acute recurrent sinusitis, unspecified[ICD10: J01.91] Diagnosis: Follicular disorder, unspecified[ICD10: L73.9] Diagnosis: Tinea corporis[ICD10: B35.4] María Elena APPIAH [employer] [facility] CPT-4: 69249 08/09/2018 ([id number]) OFFICE/OUTPATIENT VISIT EST Diagnosis: Tinea corporis[ICD10: B35.4] Diagnosis: Anxiety disorder, unspecified[ICD10: F41.9] Diagnosis: Menopausal and female climacteric states[ICD10: N95.1] María Elena APPIAH [employer] [facility] CPT-4: 69109 07/22/2018 ([id number]) NURSE/OUTPATIENT VISIT EST Diagnosis: Cellulitis of right toe[ICD10: L03.031] María Elena APPIAH [employer] [facility] CPT-4: 85702 06/19/2018 ([id number]) OFFICE/OUTPATIENT VISIT EST Diagnosis: Cellulitis of right toe[ICD10: L03.031] Kathleen APPIAH [employer] [facility] CPT-4: 59046 06/17/2018 ([id number]) OFFICE/OUTPATIENT VISIT EST Diagnosis: Migraine without aura, intractable, without status migrainosus[ICD10: G43.019] Diagnosis: Zoster without complications[ICD10: B02.9] Kathleen APPIAH [employer] [facility] CPT-4: 80964 05/16/2018 ([id number]) OFFICE/OUTPATIENT VISIT EST Diagnosis: Cellulitis of right lower limb[ICD10: L03.115] Kathleen APPIAH DO [facility] CPT-4: 34425 03/20/2018 ([id number]) OFFICE/OUTPATIENT VISIT EST Diagnosis: Cellulitis of right lower limb[ICD10: L03.115] Kathleen APPIAH DO [facility] CPT-4: 29008 03/18/2018 ([id number]) OFFICE/OUTPATIENT VISIT EST Diagnosis: Cellulitis of right lower limb[ICD10: L03.115] Kathleen APPIAH DO [facility] CPT-4: 63581 03/15/2018 ([id number]) OFFICE/OUTPATIENT VISIT EST Diagnosis: Acute sinusitis, unspecified[ICD10: J01.90] Kathleen APPIAH DO [facility] CPT-4: 98780 02/11/2018 ([id number]) NURSE/OUTPATIENT VISIT EST Diagnosis: Otitis media, unspecified, right ear[ICD10: H66.91] María Elena APPIAH DO [facility] CPT-4: 89691 02/01/2018 ([id number]) OFFICE/OUTPATIENT VISIT EST Diagnosis: Acute suppurative otitis media without spontaneous rupture of ear drum, left ear[ICD10: H66.002] Diagnosis: Abnormal weight gain[ICD10: R63.5] Diagnosis: Intervertebral disc disorders with radiculopathy, 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] Kathleen APPIAH DO [facility] CPT-4: 99 214 01/30/2018 ([id number]) PREV VISIT EST AGE 40-64 Diagnosis: Encounter for general adult medical examination without abnormal findings[ICD10: Z00.00] Diagnosis: Essential (primary) hypertension[ICD10: I10] Diagnosis: Mixed hyperlipidemia[ICD10: E78.2] Diagnosis: Type 2 diabetes mellitus with hyperglycemia[ICD10: E11.65] Diagnosis: 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] María Elena APPIAH [employer] [facility] CPT-4: 75629 12/18/2017 ([id number]) OFFICE/OUTPATIENT VISIT EST Diagnosis: Cellulitis of right toe[ICD10: L03.031] Diagnosis: Mixed hyperlipidemia[ICD10: E78.2] Diagnosis: Essential (primary) hypertension[ICD10: I10] Diagnosis: Hyperglycemia, unspecified[ICD10: R73.9] Diagnosis: Nontoxic goiter, 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] María Elena APPIAH DO [facility] CPT-4: 56614 12/10/2017 ([id number]) OFFICE/OUTPATIENT VISIT EST Diagnosis: Cellulitis of right toe[ICD10: L03.031] Diagnosis: Acute sinusitis, unspecified[ICD10: J01.90] Kathleen APPIAH DO [facility] CPT-4: 92723 12/07/2017 OFFICE/OUTPATIENT VISIT EST Diagnosis: Acute maxillary sinusitis, unspecified[ICD10: J01.00] Kathleen APPIAH DO [facility] CPT-4: 15178 10/08/2017 ([id number]) OFFICE/OUTPATIENT VISIT EST Diagnosis: Cellulitis of left toe[ICD10: L03.032] María Elena APPIAH DO [facility] CPT-4: 47001 09/21/2017 ([id number]) OFFICE/OUTPATIENT VISIT EST Diagnosis: Insomnia, unspecified[ICD10: G47.00] Diagnosis: Major depressive disorder, single episode, unspecified[ICD10: F32.9] Diagnosis: Anxiety disorder, unspecified[ICD10: F41.9] Diagnosis: Cellulitis of left toe[ICD10: L03.032] Diagnosis: Snoring[ICD10: R06.83] Kathleen APPIAH DO [facility] CPT-4: 55472 09/20/2017 ([id number]) OFFICE/OUTPATIENT VISIT EST Diagnosis: Cellulitis of left toe[ICD10: L03.032] María Elena APPIAH DO [facility] CPT-4: 96653 07/19/2017 OFFICE/OUTPATIENT VISIT EST Diagnosis: Chronic sinusitis, unspecified[ICD10: J32.9] Diagnosis: Generalized hyperhidrosis[ICD10: R61] Kathleen APPIAH DO [facility] CPT-4: 66121 06/27/2017 ([id number]) OFFICE/OUTPATIENT VISIT EST Diagnosis: Intervertebral disc disorders with radiculopathy, 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] Diagnosis: Primary insomnia[ICD10: F51.01] Diagnosis: Other fatigue[ICD10: R53.83] María Elena APPIAH DO [facility] CPT-4: 48015 04/10/2017 ([id number]) OFFICE/OUTPATIENT VISIT EST Diagnosis: Primary insomnia[ICD10: F51.01] Diagnosis: Localized edema[ICD10: R60.0] Diagnosis: 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] María Elena APPIAH DO [facility] CPT-4: 54416 12/13/2016 ([id number]) OFFICE/OUTPATIENT VISIT EST Diagnosis: Primary insomnia[ICD10: F51.01] Diagnosis: Cyanosis[ICD10: R23.0] María Elena Bazzi [facility] CPT-4: 27700 11/01/2016 ([id number]) PREV VISIT EST AGE 40-64 Diagnosis: Encounter for gynecological examination (general) (routine) without abnormal findings[ICD10: Z01.419] Diagnosis: Encounter for routine child health examination without abnormal findings[ICD10: Z00.129] María Elena APPIAH [facility] CPT-4: 86204 10/17/2016 ([id number]) OFFICE/OUTPATIENT VISIT EST Diagnosis: Other seasonal allergic rhinitis[ICD10: J30.2] María Elena APPIAH [facility] CPT-4: 70177 10/10/2016 ([id number]) OFFICE/OUTPATIENT VISIT EST Diagnosis: Pain in left arm[ICD10: M79.602] Diagnosis: Contact with and (suspected) exposure to potentially hazardous body fluids[ICD10: Z77.21] Diagnosis: 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, 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] Diagnosis: Unspecified open wound, right foot, sequela[ICD10: S91.301S] María Elena APPIAH [facility] CPT-4: 55852 09/19/2016 ([id number]) OFFICE/OUTPATIENT VISIT EST Diagnosis: Chronic sinusitis, unspecified[ICD10: J32.9] Diagnosis: Allergic rhinitis due to pollen[ICD10: J30.1] María Elena APPIAH [employer] CPT-4: 73576 08/24/2016 ([id number]) OFFICE/OUTPATIENT VISIT EST Diagnosis: Acute bronchitis, unspecified[ICD10: J20.9] María Elena APPIAH DO [facility] CPT-4: 01415 08/16/2016 ([id number]) OFFICE/OUTPATIENT VISIT EST Diagnosis: Otitis media, unspecified, right ear[ICD10: H66.91] Diagnosis: Acute bronchitis, unspecified[ICD10: J20.9] María Elena APPIAH DO [facility] CPT-4: 11774 08/10/2016 ([id number]) OFFICE/OUTPATIENT VISIT EST Diagnosis: Acute recurrent sinusitis, unspecified[ICD10: J01.91] Diagnosis: Allergic rhinitis due to pollen[ICD10: J30.1] María Elena APPIAH DO [facility] CPT-4: 43457 08/02/2016 ([id number]) OFFICE/OUTPATIENT VISIT EST Diagnosis: Pain in unspecified joint[ICD10: M25.50] María Elena APPIAH DO [facility] CPT-4: 88667 07/27/2016 OFFICE/OUTPATIENT VISIT EST Diagnosis: 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] Diagnosis: Acute recurrent sinusitis, unspecified[ICD10: J01.91] Diagnosis: Other fatigue[ICD10: R53.83] Diagnosis: Primary insomnia[ICD10: F51.01] Diagnosis: Pain in unspecified joint[ICD10: M25.50] María Elena APPIAH DO [facility] CPT-4: 67301 07/20/2016 ([id number]) OFFICE/OUTPATIENT VISIT EST Diagnosis: Blister (nonthermal), left great toe, initial encounter[ICD10: S90.422A] Loan Gonzalo APPIAH DO [facility] CPT-4: 09418 ([id number]) OFFICE/OUTPATIENT VISIT EST Diagnosis: Acute recurrent sinusitis, unspecified[ICD10: J01.91] María Elena APPIAH DO [facility] CPT-4: 50436 05/25/2016 ([id number]) OFFICE/OUTPATIENT VISIT EST Diagnosis: Acute sinusitis, unspecified[ICD10: J01.90] María Elena APPIAH DO [facility] CPT-4: 41348 04/26/2016 ([id number]) OFFICE/OUTPATIENT VISIT EST Diagnosis: Flushing[ICD10: R23.2] Diagnosis: Primary insomnia[ICD10: F51.01] María Elena APPIAH DO [facility] CPT-4: 68305 03/02/2016 ([id number]) OFFICE/OUTPATIENT VISIT EST Diagnosis: Other seasonal allergic rhinitis[ICD10: J30.2] Loan APPIAH DO [facility] CPT-4: 10125 02/09/2016 ([id number]) OFFICE/OUTPATIENT VISIT EST Diagnosis: Primary insomnia[ICD10: F51.01] Diagnosis: Urinary tract infection, site not specified[ICD10: N39.0] María Elena APPIAH DO [facility] CPT-4: 30435 01/24/2016 ([id number]) OFFICE/OUTPATIENT VISIT EST Diagnosis: Other specified disorders of Eustachian tube, bilateral[ICD10: H69.83] Diagnosis: Allergic rhinitis, unspecified[ICD10: J30.9] Loan APPIAH DO [facility] CPT-4: 61809 12/23/2015 ([id number]) OFFICE/OUTPATIENT VISIT EST Diagnosis: Acute recurrent sinusitis, unspecified[ICD10: J01.91] Diagnosis: 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] Diagnosis: Allergic rhinitis, unspecified[ICD10: J30.9] María Elena APPIAH DO [facility] CPT-4: 97861 12/08/2015 ([id number]) OFFICE/OUTPATIENT VISIT EST Diagnosis: Allergic rhinitis, unspecified[ICD10: J30.9] Diagnosis: Pain in unspecified joint[ICD10: M25.50] María Elena APPIAH DO [facility] CPT-4: 63628 10/07/2015 ([id number]) OFFICE/OUTPATIENT VISIT EST Diagnosis: Essential (primary) hypertension[ICD10: I10] María Elena APPIAH DO [facility] CPT-4: 33060 10/06/2015 OFFICE/OUTPATIENT VISIT EST Diagnosis: Localized enlarged lymph nodes[ICD10: R59.0] Diagnosis: Local infection of the skin and subcutaneous tissue, unspecified[ICD10: L08.9] June APPIAH DO [facility] CPT- 4: 76910 09/14/2015 ([id number]) OFFICE/OUTPATIENT VISIT EST Diagnosis: Essential (primary) hypertension[ICD10: I10] Diagnosis: Actinic keratosis[ICD10: L57.0] María Elena APPIAH DO [facility] CPT-4: 26455 09/07/2015 ([id number]) OFFICE/OUTPATIENT VISIT EST Diagnosis: Essential (primary) hypertension[ICD10: I10] Diagnosis: Acute stress reaction[ICD10: F43.0] María Elena APPIAH [employer] [facility] CPT-4: 77529 08/18/2015 ([id number]) OFFICE/OUTPATIENT VISIT EST Diagnosis: Essential (primary) hypertension[ICD10: I10] María Elena APPIAH DO [facility] CPT-4: 10692 07/07/2015 ([id number]) OFFICE/OUTPATIENT VISIT EST Diagnosis: Essential (primary) hypertension[ICD10: I10] María Elena APPIAH DO [facility] CPT-4: 08233 06/24/2015 ([id number]) OFFICE/OUTPATIENT VISIT EST Diagnosis: Essential (primary) hypertension[ICD10: I10] María Elena APPIAH DO [facility] CPT-4: 88330 06/21/2015 ([id number]) OFFICE/OUTPATIENT VISIT EST Diagnosis: Essential (primary) hypertension[ICD10: I10] Diagnosis: Mixed hyperlipidemia[ICD10: E78.2] Diagnosis: Acute stress reaction[ICD10: F43.0] Diagnosis: Primary insomnia[ICD10: F51.01] María Elena APPIAH DO [facility] CPT-4: 38914 06/16/2015 ([id number]) OFFICE/OUTPATIENT VISIT EST Diagnosis: INSOMNIA NOS[ICD9: 780.52] Diagnosis: HYPERTENSION[ICD9: 401.9] Diagnosis: Stress reaction[ICD9: 308.9] María Elena APPIAH DO [facility] CPT-4: 73109 06/02/2015 ([id number]) OFFICE/OUTPATIENT VISIT EST Diagnosis: HYPERTENSION[ICD9: 401.9] Diagnosis: Stress reaction[ICD9: 308.9] María Elena APPIAH DO [facility] CPT-4: 19670 05/20/2015 ([id number]) OFFICE/OUTPATIENT VISIT EST Diagnosis: Skin lesion[ICD9: 709.9] 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] María Elena APPIAH [facility] CPT-4: 52660 05/10/2015 ([id number]) OFFICE/OUTPATIENT VISIT EST Diagnosis: SINUSITIS, ACUTE[ICD9: 461.9] Diagnosis: ALLERGIC RHINITIS[ICD9: 477.9] Diagnosis: DERMATITIS NOS[ICD9: 692.9] María Elena REHMAN [facility] CPT-4: 49330 03/16/2015 OFFICE/OUTPATIENT VISIT EST Diagnosis: Otitis media[ICD9: 382.9] Diagnosis: SINUSITIS, ACUTE[ICD9: 461.9] June Felixdaniella APPIAH [facility] CPT-4: 24663 09/11/2014 ([id number]) OFFICE/OUTPATIENT VISIT EST Diagnosis: HYPERLIPIDEMIA NEC/NOS[ICD9: 272.4] María Elena APPIAH DO [facility] CPT-4: 06318 08/31/2014 ([id number]) OFFICE/OUTPATIENT VISIT EST Diagnosis: - I - HYPERTENSION[ICD9: 401.9] Diagnosis: HYPERLIPIDEMIA NEC/NOS[ICD9: 272.4] María Elena APPIAH DO [facility] CPT-4: 09977 08/27/2014 ([id number]) OFFICE/OUTPATIENT VISIT EST Diagnosis: ABDOMINAL PAIN[ICD9: 789.00] Diagnosis: DYSPEPSIA[ICD9: 536.8] Diagnosis: Thoracic back pain[ICD9: 724.1] María Eelna APPIAH DO [facility] CPT-4: 38787 07/21/2014 ([id number]) OFFICE/OUTPATIENT VISIT EST Diagnosis: ALLERGIC RHINITIS[ICD9: 477.9] María Elena APPIAH [facility] CPT-4: 31988 07/15/2014 ([id number]) OFFICE/OUTPATIENT VISIT EST Diagnosis: EDEMA[ICD9: 782.3] Diagnosis: Chronic insomnia[ICD9: 780.52] María Elena APPIAH [facility] CPT-4: 44320 05/18/2014 ([id number]) OFFICE/OUTPATIENT VISIT EST Diagnosis: Thyromegaly[ICD9: 240.9] Diagnosis: - I - HYPERTENSION[ICD9: 401.9] Diagnosis: ROUTINE MEDICAL EXAM[ICD9: V70.0] Diagnosis: EDEMA[ICD9: 782.3] María Elena APPIAH [facility] CPT-4: 67369 05/14/2014 OFFICE/OUTPATIENT VISIT EST Diagnosis: BRONCHITIS, ACUTE[ICD9: 466.0] Diagnosis: SINUSITIS, ACUTE[ICD9: 461.9] María Elena APPIAH [facility] CPT-4: 38505 04/21/2014 OFFICE/OUTPATIENT VISIT EST Diagnosis: SINUSITIS, ACUTE[ICD9: 461.9] June MagdielAlbertadaniella APPIAH [facility] CPT-4: 09770 03/04/2014 ([id number]) OFFICE/OUTPATIENT VISIT EST Diagnosis: VACCINE FOR TDAP[ICD10: Z23] María Elena APPIAH [facility] CPT-4: 22872 02/27/2014 ([id number]) OFFICE/OUTPATIENT VISIT EST Diagnosis: Seborrheic keratoses, inflamed[ICD9: 702.11] Diagnosis: ACTINIC KERATOSIS[ICD9: 702.0] Diagnosis: INSOMNIA NOS[ICD9: 780.52] María Elena PANDYA [facility] CPT-4: 86762 01/13/2014 OFFICE/OUTPATIENT VISIT EST Diagnosis: EUSTACHIAN TUBE DYSFUNCTION[ICD9: 381.81] Diagnosis: ALLERGIC RHINITIS[ICD9: 477.9] Diagnosis: Serous otitis media[ICD9: 381.4] María Elena APPIAH [facility] CPT-4: 93017 12/24/2013 ([id number]) OFFICE/OUTPATIENT VISIT EST Diagnosis: SINUSITIS, ACUTE[ICD9: 461.9] Diagnosis: ALLERGIC RHINITIS[ICD9: 477.9] Diagnosis: EUSTACHIAN TUBE DYSFUNCTION[ICD9: 381.81] María Elena APPIAH DO [facility] CPT-4: 34492 11/12/2013 ([id number]) OFFICE/OUTPATIENT VISIT EST Diagnosis: ALLERGIC RHINITIS[ICD9: 477.9] Diagnosis: SINUSITIS, ACUTE[ICD9: 461.9] María Elena APPIAH [facility] CPT-4: 71545 10/21/2013 ([id number]) OFFICE/OUTPATIENT VISIT EST Diagnosis: ASYMPTOMATIC VARICOSE VEINS[ICD9: 454.9] Diagnosis: INSOMNIA NOS[ICD9: 780.52] María Elena PANDYA [facility] CPT-4: 02107 09/22/2013 OFFICE/OUTPATIENT VISIT EST Diagnosis: SINUSITIS, ACUTE[ICD9: 461.9] June Felixdaniella APPIAH [facility] CPT-4: 43189 08/27/2013 ([id number]) OFFICE/OUTPATIENT VISIT EST Diagnosis: CEPHALGIA[ICD9: 784.0] Diagnosis: CEPHALGIA, TENSION[ICD9: 307.81] 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] María Elena APPIAH [facility] CPT-4: 43758 08/04/2013 ([id number]) OFFICE/OUTPATIENT VISIT EST Diagnosis: Cervicalgia[ICD9: 723.1] Diagnosis: SPASM OF MUSCLE[ICD9: 728.85] Diagnosis: CEPHALGIA, TENSION[ICD9: 307.81] María Elena APPIAH [facility] CPT-4: 15806 07/23/2013 ([id number]) OFFICE/OUTPATIENT VISIT EST Diagnosis: EUSTACHIAN TUBE DYSFUNCTION[ICD9: 381.81] Diagnosis: ALLERGIC RHINITIS[ICD9: 477.9] María Elena APPIAH [facility] CPT-4: 89461 06/23/2013 ([id number]) OFFICE/OUTPATIENT VISIT EST Diagnosis: ALLERGIC RHINITIS[ICD9: 477.9] Diagnosis: ACUTE SEROUS OTITIS MEDIA[ICD9: 381.01] Diagnosis: EUSTACHIAN TUBE DYSFUNCTION[ICD9: 381.81] María Elena Hicks SEAMUSMINDIVICTORINO [facility] CPT-4: 52530 05/26/2013 ([id number]) OFFICE/OUTPATIENT VISIT EST Diagnosis: HYPERTENSION[ICD9: 401.9] Diagnosis: EDEMA[ICD9: 782.3] Diagnosis: Serous otitis media[ICD9: 381.4] [facility]: 30816 04/16/2013 ([id number]) OFFICE/OUTPATIENT VISIT EST Diagnosis: SINUSITIS, ACUTE[ICD9: 461.9] Diagnosis: ALLERGIC RHINITIS[ICD9: 477.9] Diagnosis: EDEMA[ICD9: 782.3] Diagnosis: Thyromegaly[ICD9: 240.9] Diagnosis: MALAISE AND FATIGUE[ICD9: 780.79] María Elena Hicks [facility]: 47606 03/05/2013 ([id number]) OFFICE/OUTPATIENT VISIT EST Diagnosis: PAIN, LOWER BACK[ICD9: 724.2] Diagnosis: SPASM OF MUSCLE[ICD9: 728.85] María Elena Hicks SEAMUSMINDIVICTORINO [facility] CPT-4: 96363 12/23/2012 OFFICE/OUTPATIENT VISIT EST Diagnosis: Low back pain[ICD9: 724.2] [facility]: 77143 12/16/2012 ([id number]) OFFICE/OUTPATIENT VISIT EST Diagnosis: PAIN, LOWER BACK[ICD9: 724.2] Diagnosis: SCIATICA[ICD9: 724.3] Diagnosis: Lumbar herniated disc[ICD9: 722.10] María Elena Hicks [facility]: 78594 12/09/2012 ([id number]) OFFICE/OUTPATIENT VISIT EST Diagnosis: PAIN, LOWER BACK[ICD9: 724.2] Diagnosis: SCIATICA[ICD9: 724.3] Diagnosis: LUMBAR DISC DISPLACEMENT[ICD9: 722.10] María Elena CulverJARED APPIAH DO [facility] CPT-4: 39529 12/04/2012 OFFICE/OUTPATIENT VISIT EST Diagnosis: Pneumonia[ICD9: 486] Mary DelucaLeigh MARÍA ELENA APPIAH DO [facility] CPT-4: 26022 11/22/2012 ([id number]) OFFICE/OUTPATIENT VISIT EST Diagnosis: PNEUMONIA, ORGANISM[ICD9: 486] Diagnosis: Exacerbation of RAD (reactive airway disease)[ICD9: 493.92] María Elena Ortavictorino MARÍA ELENA APPIAH DO [facility] CPT-4: 94780 11/21/2012 OFFICE/OUTPATIENT VISIT EST Diagnosis: HYPERTENSION[ICD9: 401.9] Diagnosis: Cephalgia[ICD9: 784.0] Lashawn Eckert MARÍA ELENA Fabiola APPIAH DO [facility] CPT-4: 96444 10/29/2012 ([id number]) OFFICE/OUTPATIENT VISIT EST Diagnosis: MALAISE AND FATIGUE[ICD9: 780.79] Diagnosis: ARTHRALGIA-MULTIPLE SITES[ICD9: 719.49] María Elena Seamusabbey KYLAH APPIAH DO [facility] CPT-4: 99119 10/14/2012 ([id number]) OFFICE/OUTPATIENT VISIT EST Diagnosis: URINARY FREQUENCY[ICD9: 788.41] María Elena Td ELLISLINE Fabiola APPIAH DO [facility] CPT-4: 88985 09/27/2012 ([id number]) OFFICE/OUTPATIENT VISIT EST Diagnosis: MALAISE AND FATIGUE[ICD9: 780.79] Diagnosis: ARTHRALGIA-MULTIPLE SITES[ICD9: 719.49] María Elena Seamusabbey MONTERO APARNAALCIDES LucioJj TD GARIBAY [facility] CPT-4: 19229 09/25/2012 ([id number]) OFFICE/OUTPATIENT VISIT EST Diagnosis: SINUSITIS, ACUTE[ICD9: 461.9] Diagnosis: EUSTACHIAN TUBE DYSFUNCTION[ICD9: 381.81] María Elena Seamusabbey MARÍA ELENA LucioJj TD GAR[facility]AY [facility] CPT-4: 11877 08/29/2012 OFFICE/OUTPATIENT VISIT EST Diagnosis: ACTINIC KERATOSIS[ICD9: 702.0] Diagnosis: Inflamed seborrheic keratosis[ICD9: 702.11] Diagnosis: Skin cancer of face[ICD9: 173.31] Diagnosis: HYPERTENSION[ICD9: 401.9] María Elena WAY NDER [facility] CPT-4: 68678 08/12/2012 ([id number]) OFFICE/OUTPATIENT VISIT EST Diagnosis: ARTHRALGIA-MULTIPLE SITES[ICD9: 719.49] Diagnosis: GOUT[ICD9: 274.9] Diagnosis: HYPERTENSION[ICD9: 401.9] Diagnosis: Tachycardia[ICD9: 785.0] María Elena HU KARLOS [facility] CPT-4: 29015 05/06/2012 ([id number]) OFFICE/OUTPATIENT VISIT EST Diagnosis: INSOMNIA NOS[ICD9: 780.52] María Elena KENTER [facility] CPT-4: 19482 04/03/2012 ([id number]) OFFICE/OUTPATIENT VISIT EST Diagnosis: INSOMNIA NOS[ICD9: 780.52] Diagnosis: HYPERTENSION[ICD9: 401.9] Diagnosis: MIGRAINE NOS/NOT INTRCBL[ICD9: 346.90] María Elena Seamusmindivictorino ISAAC TANIA SJj [facility]: 11867 03/19/2012 ([id number]) OFFICE/OUTPATIENT VISIT EST Diagnosis: CELLULITIS[ICD9: 682.9] Diagnosis: Ankle pain[ICD9: 719.47] Diagnosis: HYPERTENSION[ICD9: 401.9] María Elena WAY NDER [facility] CPT-4: 56486 02/20/2012 ([id number]) OFFICE/OUTPATIENT VISIT EST Diagnosis: MIGRAINE NOS/NOT INTRCBL[ICD9: 346.90] Diagnosis: Vomiting[ICD9: 787.03] María Elena ValdesJj CIRO R [facility] CPT-4: 66683 01/30/2012 ([id number]) OFFICE/OUTPATIENT VISIT EST Diagnosis: EDEMA[ICD9: 782.3] Diagnosis: HYPERTENSION[ICD9: 401.9] Diagnosis: ALLERGIC RHINITIS[ICD9: 477.9] Diagnosis: ARTHRALGIA-MULTIPLE SITES[ICD9: 719.49] María Elena Waymindivictorino BRAUNALCIDES LucioJj SEAMUSNDVICTORINO [facility] CPT-4: 35563 01/24/2012 ([id number]) OFFICE/OUTPATIENT VISIT EST Diagnosis: SPASM OF MUSCLE[ICD9: 728.85] Diagnosis: Thoracic back pain[ICD9: 724.1] Diagnosis: Cervical pain[ICD9: 723.1] María Elena Seamusmindivictorino MARÍA ELENA LucioJj KRISTYN PANDYA [facility] CPT-4: 41611 01/10/2012 OFFICE/OUTPATIENT VISIT EST Diagnosis: PAIN, LOWER BACK[ICD9: 724.2] Diagnosis: LUMBAR DISC DISPLACEMENT[ICD9: 722.10] María Elena MARIN LucioJj TD [facility] CPT-4: 56109 12/11/2011 OFFICE/OUTPATIENT VISIT EST Diagnosis: MIGRAINE NOS/NOT INTRCBL[ICD9: 346.90] Diagnosis: SINUSITIS, ACUTE[ICD9: 461.9] María Elena Seamusabbey JUARES LucioJj TD [facility] CPT-4: 11596 11/09/2011 OFFICE/OUTPATIENT VISIT EST Diagnosis: MIGRAINE NOS/NOT INTRCBL[ICD9: 346.90] Diagnosis: LYMPHADENOPATHY[ICD9: 785.6] María Elena Seamusabbey JUARES LucioJj [facility]: 57860 09/13/2011 OFFICE/OUTPATIENT VISIT EST Diagnosis: MALAISE AND FATIGUE[ICD9: 780.79] Diagnosis: ARTHRALGIA-MULTIPLE SITES[ICD9: 719.49] María Elena REED LucioJj [facility] C[facility]: 58284 08/31/2011 OFFICE/OUTPATIENT VISIT EST Diagnosis: SINUSITIS, ACUTE[ICD9: 461.9] María Elena Seamusabbey JUARES LucioJj SEAMUSKSVICTORINO [facility] CPT-4: 33853 07/20/2011 OFFICE/OUTPATIENT VISIT EST Diagnosis: HYPERTENSION[ICD9: 401.9] Diagnosis: PAIN, LOWER BACK[ICD9: 724.2] Diagnosis: SPASM OF MUSCLE[ICD9: 728.85] María Elena Seamusabbey JUARES LucioJj TD [facility] CPT-4: 69506 07/06/2011 OFFICE/OUTPATIENT VISIT EST Diagnosis: MIGRAINE NOS/NOT INTRCBL[ICD9: 346.90] Diagnosis: HYPERTENSION[ICD9: 401.9] María Elena Hicks [facility] CPT-4: 59776 05/22/2011 OFFICE/OUTPATIENT VISIT EST Diagnosis: SINUSITIS, ACUTE[ICD9: 461.9] Diagnosis: MIGRAINE NOS/NOT INTRCBL[ICD9: 346.90] Diagnosis: Dehydration[ICD9: 276.51] Diagnosis: Vomiting[ICD9: 787.03] María Elena Seamusabbey MARÍA ELENA Fabiola WAYNDE R DO [facility] CPT-4: 84366 05/09/2011 ([id number]) OFFICE/OUTPATIENT VISIT EST María Elena ISAAC UELINE S. ORENDER DO [facility] CPT-4: 33912 02/14/2011 ([id number]) OFFICE/OUTPATIENT VISIT EST María Elena ISAAC UELINE S. OREND[facility] DO [facility] CPT-4: 92319 02/03/2011 ([id number]) OFFICE/OUTPATIENT VISIT EST María Elena ISAAC UELINE S. ORENDER DO [facility] CPT-4: 52779 01/31/2011 ([id number]) OFFICE/OUTPATIENT VISIT EST María Elena ISAAC UELINE S. ORENDER DO [facility] CPT-4: 48182 01/25/2011 ([id number]) OFFICE/OUTPATIENT VISIT EST María Elena ISAAC UELINE [facility]. [facility] DO [facility] CPT-4: 61269 01/18/2011 ([id number]) OFFICE/OUTPATIENT VISIT EST María Elena ISAAC [facility] CPT-4: 08885 11/29/2010 ([id number]) OFFICE/OUTPATIENT VISIT, EST María Elena Seamusmindivictorino KYLAH APARNALINE S. ORENDER DO [facility] CPT-4: 37094 10/10/2010 ([id number]) OFFICE/OUTPATIENT VISIT, EST María Elena Seamusmindivictorino MONTERO QUEALCIDES S. ORENDER DO [facility] CPT-4: 48091 06/07/2010 ([id number]) OFFICE/OUTPATIENT VISIT, EST María Elena MONTERO QUELINE S. ORENDER DO [facility] CPT-4: 18450 04/27/2010 ([id number]) OFFICE/OUTPATIENT VISIT, EST María Elena MONTERO [facility]NALINE [facility] CPT-4: 64042 04/05/2010 ([id number]) OFFICE/OUTPATIENT VISIT, EST María Elena APPIAH DO [facility] CPT-4: 38904 03/09/2010 ([id number]) OFFICE/OUTPATIENT VISIT, [facility] CPT-4: 23530 03/03/2010 ([id number]) OFFICE/OUTPATIENT VISIT, [facility] CPT-4: 56559 01/17/2010 ([id number]) PREV VISIT, EST, AGE 40-64 María Elena ORTAER [facility] CPT-4: 28134 12/27/2009 Plan of Care Planned Activity Notes Codes Status Date Visit Diagnosis Plan: Ingrowing nail Discussion: blanca [...] : E11.65 10/07/2019 Appointment: Kathleen Zuniga [address] [place], [place] [id number] OFFICE SURGERY 10/07/2019 Visit Diagnosis [...] : E11.65 09/30/2019 Appointment: María Elena Appiahtel: [facility] [place] CHECK UP 09/30/2019 Patient Education: Premarin- [employer] Coupon [id number] https://www.[employer] Networkmd/resources/getResource/61/[email or web address] Completed 09/30/2019 Appointment: María Elena Appiah WPtel: [address] [facility] [place] LAB 09/29/2019 Appointment: María Elena Appiah WPtel: [address] [facility] [place] Won't have the new insurance till Sep 10. CANSHARONE Swati 07/24/2019 Visit Diagnosis Plan: Essential (primary) hypertension Discussion: Stable Will have insurance in July and do lab then ICD-9 : 401.9 ICD-10 : I10 05/28/2019 Visit Diagnosis Plan: Fall from bed, sequela Discussio n: DC gabapentin Decrease baclofen to 10mg TID prn ICD-9 : E929.3 ICD-10 : W06.XXXS 05/28/2019 Appointment: María Elena Appiahtel: [facility] [place] FOLLOW UP 05/28/2019 Appointment: María Elena Appiahtel: [address] [place], [place] [phone] [place] BP CHECK 05/19/2019 Visit Diagnosis Plan: [...] Z79.890 01/22/2019 Appointment: María Elena Appiah WPtel: [address] [place], [place] [phone] [place] FOLLOW UP 01/22/2019 Patient Education: estradiol- [employer] Coupon [id number] https://www.[employer] Networkmd/resources/getResource/61/[email or web address] Completed 01/22/2019 Appointment: María Elena Appiah WPtel: [address] [place], [place] [phone] [place] CANCELED 01/20/2019 Appointment: María Elena Appiah WPtel: [address] [place], [place] [address] [place] LM NO SHOW 01/06/2019 Appointment: María Elena Appiah WPtel: [address] [place], [place] [phone] [place] CANCELED 10/17/2018 Appointment: María Elena Appiah WPtel: [address] [place], [place] [phone] [place] BP CHECK 10/09/2018 Visit Diagnosis Plan: [...] I10 09/30/2018 Appointment: María Elena Appiah WPtel: [address] [place] [address] FOLLOW UP 09/30/2018 Visit Diagnosis Plan: Pain [...] F51.01 08/27/2018 Appointment: María Elena Appiah WPtel: [address] [place] [address] ACUTE ILLNESS 08/27/2018 Appointment: María Elena Appiah WPtel: [address] [place], [place] [id number] [place] Patient stated she went out to [...] Tyle... 08/09/2018 Appointment: María Elena Appiah WPtel: [address] [place] [address] ACUTE ILLNESS 08/09/2018 Appointment: María Elena Appiah WPtel: [address] [place] [address] [place] NO SHOW 08/08/2018 Visit Diagnosis Plan: [...] B35.4 07/22/2018 Appointment: María Elena Appiah WPtel: [address] [place] [address] ACUTE ILLNESS 07/22/2018 Appointment: María Elena Appiah WPtel: [address] [place] [address] [place] INJECTION 06/19/2018 Patient Education: Patient Medication [...] ICD-10 : L03.031 06/17/2018 Appointment: Kathleen Zuniga [address] [place] [address] ACUTE ILLNESS 06/17/2018 Patient Education: Patient Medication [...] ICD-10 : B02.9 05/16/2018 Appointment: Kathleen Zuniga [address] [place] [address] ACUTE ILLNESS 05/16/2018 Patient Education: Patient Medication [...] : L03.115 03/20/2018 Appointment: Kathleen Zuniga [address] [place], [place] [address] FOLLOW UP 03/20/2018 Patient Education: Patient Medication [...] ICD-10 : L03.115 03/18/2018 Appointment: Kathleen Zuniga [address] [place], [place] [phone] FOLLOW UP 03/18/2018 Patient Education: Patient Medication [...] ICD-10 : L03.115 03/15/2018 Appointment: Kathleen Zuniga [address] [place] [address] ACUTE ILLNESS 03/15/2018 Patient Education: Patient Medication [...] ICD-10 : J01.90 02/11/2018 Appointment: Kathleen Zuniga [address] [place] [address] ACUTE ILLNESS 02/11/2018 Patient Education: Patient Medication Summary Completed 02/11/2018 Appointment: María Elena Appiah WPtel: [address] [facility] [place] INJECTION 02/01/2018 Patient Education: Patient [...] ICD-10 : M51.16 01/30/2018 Appointment: Kathleen Zuniga [address] [place] [address] ACUTE ILLNESS 01/30/2018 Patient Education: Patient Medication [...] E11.65 12/18/2017 Appointment: María Elena Appiah WPtel: [address] [place] [address] Annual Well Visit 12/18/2017 Patient Education: Patient Medication Summary Completed 12/18/2017 Care Plan: Referral Order SNOMED-CT : [id number] Pending 12/18/2017 Appointment: María Elena Appiah WPtel: [address] [place] [address] [place] INJECTION 12/10/2017 Patient Education: Patient Medication [...] ICD-10 : L03.031 12/07/2017 Appointment: Kathleen Zuniga [address] [place], [place] [id number] ACUTE ILLNESS 12/07/2017 Patient Education: Patient Medication [...] ICD-10 : J01.00 10/08/2017 Appointment: Kathleen Zuniga [address] [place], [place] [id number] ACUTE ILLNESS 10/08/2017 Patient Education: Patient Medication [...] : R06.83 09/20/2017 Appointment: Kathleen Zuniga [address] [id number] ACUTE ILLNESS 09/20/2017 Patient Education: Patient Medication [...] L60.0 08/29/2017 Appointment: Kathleen Zuniga [address] [facility] OFFICE SURGERY 08/29/2017 Patient Education: Patient Medication Summary Completed 08/29/2017 Visit Diagnosis Plan: Actinic keratosis Discussion: Cr yotherapy as above ICD-9 : 702.0 ICD-10 : L57.0 08/01/2017 Appointment: María Elena Appiah WPtel: [address] [facility] OFFICE SURGERY 08/01/2017 Patient Education: Patient Medication Summary Completed 08/01/2017 Appointment: María Elena Appiah WPtel: [facility] [address] PATIENT THOUGHT APPOINTMENT WAS TOMORROW 07/26/17 CALLED 15 MINUTES BEFORE APPT TO SAY SHE DIDN'T HAVE ANYONE TO COVER HER BUSINESS AND WOULD NOT MAKE IT NO SHOW 07/25/2017 Visit Diagnosis Plan: Cellulitis of left toe Discussio n: Clindamycin and notify if worsening or persistis ICD-9 : 681.10 ICD-10 : L03.032 07/19/2017 Appointment: María Elena Appiah WPtel: [address] [place] [address] MEDICATION REVIEW 07/19/2017 Patient Education: Patient Medication Summary Completed 07/19/2017 Appointment: María Elena Appiah WPtel: [facility] [address] CANCELED 07/04/2017 Visit Diagnosis Plan: Generalized hyperhidrosis Discus ian: CBC, CMP, TSH, free T4 ordered to assess. will review labs. ICD-9 : 780.8 ICD-10 : R61 06/27/2017 Visit Diagnosis Plan: Chronic sinusitis, unspecified D iscussion: Referral sent to dr. albarado in [place] per patient request. patient has been treated multiple times for sinus infections with no recovery. patient was seen by dr sanchez in the past with no interventions. patient has deviated septum which may be affecting her sinuses. 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, including hip Discussion: Shave removal of above lesio n--sent to pathology ICD-9 : 216.7 ICD-10 : D23.72 01/24/2017 Appointment: María Elena Appiah WPtel: [address] [place], [place] [phone] 01/23 confirmed ~sl OFFICE SURGERY 01/24/2017 Patient Education: Patient Medication Summary Completed 01/24/2017 Appointment: Loan Sánchez [address] [place] [address] 01/09 rescheduled~sl RESCHEDULED 01/15/2017 Visit Diagnosis Plan: [...] L81.4 12/13/2016 Appointment: María Elena Appiah WPtel: [address] [place], [place] [phone] 12/12 confirmed ~sl MEDICATION REVIEW 12/13/2016 Patient Education: Patient Medication Summary Completed 12/13/2016 Appointment: María Elena Appiah WPtel: [address] [place], [place] [phone] [place] rescheduled for 12/13/16 at 11am RESCHEDULED 0 12/06/2016 Appointment: María Elena Appiah WPtel: [address] [place], [place] [phone] [place] CANCELED 11/23/2016 Patient Education: Patient Medication [...] F51.01 11/01/2016 Appointment: María Elena Appiah WPtel: [address] [place], [place] [id number] [place] 10/31 lm `sl 11/01 lm`sl MEDICATION REVIEW 017 Patient Education: Patient Medication Summary Completed 11/01/2016 Referral: Canelo Overton WPtel: [address] [id number] [place] Referral Initiated 10/30/2016 Visit Diagnosis Plan: [...] Z01.419 10/17/2016 Appointment: María Elena Appiah WPtel: [address] [place] [address] 10/16 confirmed ~sl PAP 10/17/2016 Patient Education: Patient Medication Summary Completed 10/17/2016 Care Plan: MAMMOGRAM SCREENING LOINC : 2 6347-5 Pending 10/17/2016 Visit Diagnosis Plan: Other seasonal allergic rhinitis Discussion: Decadron/Garamycin Nasal [place] Mix Too soon for steroid Retry zyrtec 10mg daily ICD-9 : 477.9 ICD-10 : J30.2 10/10/2016 Appointment: María Elena Appiah WPtel: [address] [place] [address] FOLLOW UP 10/10/2016 Patient Education: Patient Medication Summary Completed 10/10/2016 Appointment: María Elena Appiah WPtel: [address] [place] [address] 10/02 reschedule `sl RESCHEDULED 10/02/2016 Visit Plan: See surgery for removal of n ew left arm lesion and right foot lesion Lyrica to use next month for left arm paresthesias Continue current meds Discussed sunscreen/sunblock combo 09/19/2016 Appointment: María Elena Appiah WPtel: [address] [place] [address] 09/18 confirmed ~sl FOLLOW UP 09/19/2016 Patient Education: Patient Medication Summary Completed 09/19/2016 Patient Education: Patient Medication Summary Completed 09/18/2016 Care Plan: MAMMOGRAM BOTH BREASTS LOINC : 17706-7 Pending 09/18/2016 Visit Plan: Discussed that needs [...] sinuses 08/24/2016 Appointment: María Elena Appiah WPtel: [address] [place] [address] ACUTE ILLNESS 08/24/2016 Patient Education: Patient Medication Summary Completed 08/24/2016 Patient Education: Patient Medication Summary Completed 08/23/2016 Care Plan: MAMMOGRAM SCREENING [facility] : 2 6347-5 Pending 08/23/2016 Visit Plan: Finish doxycycline Add Breo 100/25 1 p BID for 2 weeks If not improving within next 2 days will get CXR 08/16/2016 Appointment: María Elena Appiah WPtel: [address] [place] [address] ACUTE ILLNESS 08/16/2016 Patient Education: Patient Medication Summary Completed 08/16/2016 Visit Plan: Supportive care. Rest, Fluid s, Tylenol/Motrin prn fever or bodyaches. Notify if worsening symptoms. Doxycyline and Prednisone 08/10/2016 Appointment: María Elena Appiah WPtel: [address] [place] [address] 08/09 lm`sl....confirmed-sp FOLLOW UP 09/2015 Patient Education: Patient Medication Summary Completed 08/10/2016 Visit Plan: Saline nasal flushes prn. Ty lenol/Motrin prn headache. Notify if persists/symptoms worsening. Dexamethasone 8mg IM today May use coricedan and mucinex 08/02/2016 Appointment: María Elena Appiah WPtel: [address] [place] [address] ACUTE ILLNESS 08/02/2016 Patient Education: Patient Medication Summary Completed 08/02/2016 Visit Plan: Cryotherapy as above and lef t forearm lesion removal as above with 5-0 punch biopsy and sent to path Return in 10 days for suture removal 08/01/2016 Appointment: María Elena Appiah WPtel: [address] [place] [address] 07/31 confirmed`~sl OFFICE SURGERY 08/01/2016 Patient Education: Patient Medication Summary Completed 08/01/2016 Visit Plan: Stop clindamycin Check CBC, CMP, ESR now/STAT 07/27/2016 Appointment: María Elena Appiah WPtel: [address] [place] [address] ACUTE ILLNESS 07/27/2016 Patient Education: Patient Medication Summary Completed 07/27/2016 Visit Plan: Update lab and check ABIs to start with Will likely need cardiology evaluation to rule out PVD Clindamycin for 10 days Daily yogurt or probiotic Will return for removal of left arm lesions 07/20/2016 Appointment: María Elena Appiah WPtel: [address] [place] [address] ACUTE ILLNESS 07/20/2016 Patient Education: Patient Medication Summary Completed 07/20/2016 Patient Education: Patient Medication Summary Completed 07/20/2016 Care Plan: MAMMOGRAM BOTH BREASTS LOINC : 56426-2 Pending 07/20/2016 Care Plan: US EXAM CHEST LOINC : 11996-6 Pending 07/20/2016 Visit Plan: Wound culture collected from left great toe Appearance is somewhat staph like Rx as above Wound cleanser and skin care reviewed May need to add oral antibiotic if sores do not heal or continue to reoccur 07/06/2016 Appointment: Loan Sánchez [address] [place] [address] ACUTE ILLNESS 07/06/2016 Patient Education: Patient Medication Summary Completed 07/06/2016 Appointment: María Elena Appiah WPtel: [address] [place] [address] US INJECTION 05/25/2016 Patient Education: Patient Medication Summary Completed 05/25/2016 Visit Plan: Saline nasal flushes prn. Ty lenol/Motrin prn headache. Notify if persists/symptoms worsening. Dexamethasone and Rocephin given 04/26/2016 Appointment: María Elena Appiah WPtel: [address] [place] [address] ACUTE ILLNESS 04/26/2016 Patient Education: Patient Medication Summary Completed 04/26/2016 Visit Plan: Check CBC, CMP, TSH, FreeT4, HbA1C, estradiol, lipids in AM 03/02/2016 Appointment: María Elena Appiah WPtel: [address] [place], [place] [id number] 03/01 lm~sl ACUTE ILLNESS 03/02/2016 Patient Education: Patient Medication Summary Completed 03/02/2016 Visit Plan: Exam is nearly normal Needs to be taking daily antihistamine Would prefer to use oral steroids instead of shot but patient insist that oral steroids cause horrible headaches for her Will given kenalog IM instead 02/09/2016 Appointment: Loan Sánchez [address] [place] [address] ACUTE ILLNESS 02/09/2016 Patient Education: Patient Medication Summary Completed 02/09/2016 Visit Plan: Culture urine Macrobid DC xa nax Trial of Ativan 1mg q HS 01/24/2016 Appointment: María Elena Appiah WPtel: [address] [place] [address] ACUTE ILLNESS 01/24/2016 Patient Education: Patient Medication Summary Completed 01/24/2016 Visit Plan: No steroid or rocephin injec tion warranted Can have oral prednisone Continue current home regimen Needs to follow up with Dr Sanchez if problems persist 12/23/2015 Appointment: Loan Sánchez [address] [place] [address] ACUTE ILLNESS 12/23/2015 Patient Education: Patient Medication Summary Completed 12/23/2015 Visit Plan: Saline nasal flushes prn. Ty lenol/Motrin prn headache. Notify if persists/symptoms worsening. Kenalog 40mg IM today 12/08/2015 Appointment: María Elena Appiah WPtel: [address] [place] [address] 12/06 confirmed~sl ACUTE ILLNESS 12/08/2015 Patient Education: Patient Medication Summary Completed 12/08/2015 Appointment: María Elena Appiah WPtel: [address] [place] [address] ACUTE ILLNESS 11/18/2015 Patient Education: Patient Medication Summary Completed 10/11/2015 Appointment: María Elena Appiah WPtel: [address] [place] [address] US INJECTION 10/07/2015 Patient Education: Patient Medication Summary Completed 10/07/2015 Visit Plan: Check renal arterial doppler s and ECHO Change amlodopine to lotrel 5/20mg q HS Will need stress test as well Check CMP, uric acid, ESR 10/06/2015 Appointment: María Elena Appiah WPtel: [address] [place] [address] ACUTE ILLNESS 10/06/2015 Patient Education: Patient Medication Summary Completed 10/06/2015 Patient Education: [facility] - [employer]aving [employer] - Amlodipine Besylate - 18-64 - Dynamic Portal ID Completed 10/06/2015 Appointment: María Elena Appiah WPtel: [address] [place] [address] FOLLOW UP 09/22/2015 Visit Plan: Cephalexin 500 mg PO bid Mery ly topical Mupirocin to lesions on left lateral neck and face Follow-up in one week. Sooner if symptoms worsen 09/14/2015 Appointment: June Flores WPtel: [address] [place] [address] ACUTE ILLNESS 09/14/2015 Patient Education: Patient Medication Summary Completed 09/14/2015 Visit Plan: Change bystolic to bedtime d osing and amlodopine to morning dosing Cryotherapy as above to AKs 09/07/2015 Appointment: María Elena Appiah WPtel: [address] [place] [address] 09/06 appointment made and confirmed ~ FOLLOW UP 09/07/2015 Patient Education: Patient Medication Summary Completed 09/07/2015 Visit Plan: Increase bystolic back to 20 mg daily but will split and take 10mg in AM and 10mg in PM Stress Reducers 08/18/2015 Appointment: María Elena Appiah WPtel: [address] [place] [address] 08/17/15 appt confirmed cn ACUTE ILLNESS 08/18 Patient Education: Patient Medication Summary Completed 08/18/2015 Appointment: María Elena Appiah WPtel: [address] [place] [address] BP CHECK 07/07/2015 Patient Education: Patient Medication Summary Completed 07/07/2015 Appointment: María Elena Appiah WPtel: [address] [place] [address] BP CHECK 06/24/2015 Patient Education: Patient Medication Summary Completed 06/24/2015 Appointment: María Elena Appiah WPtel: [address] [place] [address] BP CHECK 06/21/2015 Patient Education: Patient Medication Summary Completed 06/21/2015 Visit Plan: Lab discussed Continue curre nt meds and lifestyle modification Recheck lab in 6mos 06/16/2015 Appointment: María Elena Appiah WPtel: [address] [place] [address] 06/15 confirmed FOLLOW UP 06/16/2015 Patient Education: Patient Medication Summary Completed 06/16/2015 Patient Education: Patient Medication Summary Completed 06/15/2015 Visit Plan: Increase cymbalta to 60mg q HS Keep clonidine at current dose Recheck 2weeks Change xanax to klonopin 06/02/2015 Appointment: María Elena Appiahtel: [address] [place] [address] 06/02 lm FOLLOW UP 06/02/2015 Patient Education: Patient Medication Summary Completed 06/02/2015 Appointment: María Elena Appiah WPtel: [address] [place] [address] ACUTE ILLNESS 05/24/2015 Visit Plan: Increase clonidine to 0.2mg q HS Add cymbalta 30mg q HS Recheck 2weeks Stress Reducers Check fasting lab Discussed sleep study 05/20/2015 Appointment: María Elena Appiah WPtel: [address] [place] [address] ACUTE ILLNESS 05/20/2015 Patient Education: Patient Medication Summary Completed 05/20/2015 Patient Education: [facility] - [employer] - Cymbalta - 18-64 - Dynamic Portal ID Completed 05/20/2015 Appointment: María Elena Appiah WPtel: [address] [place] [address] BP CHECK 05/19/2015 Patient Education: Patient Medication Summary Completed 05/19/2015 Visit Plan: Topical Bactroban alternatin g with topical betamethasone Recheck 2weeks 05/10/2015 Appointment: María Elena Appiah WPtel: [address] [place] [address] 05/07 vm cn...05/07 appt confirmed OFFICE SURGER Y 05/10/2015 Patient Education: Patient Medication Summary Completed 05/10/2015 Referral: Patrick Chandler WPtel: [facility] [id number] Referral Initiated 05/04/2015 Visit Plan: Saline nasal flushes prn. Ty lenol/Motrin prn headache. Notify if persists/symptoms worsening. Depomedrol 40mg IM today 03/16/2015 Appointment: María Elena Appiah WPtel: [address] [place] [address] ACUTE ILLNESS 03/16/2015 Patient Education: Patient Medication Summary Completed 03/16/2015 Appointment: María Elena Appiah WPtel: [address] [place] [address] ER Follow UP 03/09/2015 Visit Plan: Cryotherapy to lesions as ab ove 10/27/2014 Appointment: María Elena Appiah WPtel: [address] [place] [address] OFFICE SURGERY 10/27/2014 Patient Education: Patient Medication Summary Completed 10/27/2014 Appointment: June Flores WPtel: [address] [place] [address] ACUTE ILLNESS 09/11/2014 Patient Education: Patient Medication Summary Completed 09/11/2014 Visit Plan: Lab discussed Lipitor 10mg d aily Coenzyme Q-10 400mg daily Vitamin D3 5000u daily Recheck lipids with LFTs in 3mos then fwup 08/31/2014 Appointment: María Elena Appiahtel: [address] [place] [address] 08/28 voicemail FOLLOW UP 08/31/2014 Patient Education: Patient Medication Summary Completed 08/31/2014 Appointment: María Elena Appiah WPtel: [address] [place] [address] US LAB 08/27/2014 Appointment: María Elena Appiah WPtel: [address] [place] [address] US LAB 08/27/2014 Patient Education: Patient Medication Summary Completed 08/27/2014 Appointment: María Elena Appiah WPtel: [address] [place] [address] ACUTE ILLNESS 07/23/2014 Appointment: María Elena Appiah WPtel: [address] [place] [address] ACUTE ILLNESS 07/21/2014 Patient Education: Patient Medication Summary Completed 07/21/2014 Visit Plan: Kenalog 40mg IM today Contin ue narendra and singulair Add Flonase 07/15/2014 Appointment: María Elena Appiahtel: [address] [place] [address] ACUTE ILLNESS 07/15/2014 Appointment: María Elena Appiah WPtel: [address] [place] [address] ACUTE ILLNESS 07/15/2014 Patient Education: Patient Medication Summary Completed 07/15/2014 Visit Plan: Will do metolazone 2.5mg prn with 6 potassium and see if causes as severe cramping Trial of of seroquel XR 50mg q PM with evening meal and let us know how works 05/18/2014 Appointment: María Elena Appiah WPtel: [address] [place], [place] [phone] 05/15 left message FOLLOW UP 05/18/2014 Patient Education: Patient Medication Summary Completed 05/18/2014 Appointment: María Elena Appiah WPtel: [address] [place], [place] [phone] [place] LAB 05/14/2014 Patient Education: Patient Medication Summary Completed 05/14/2014 Appointment: María Elena Appiah WPtel: [address] [place], [place] [phone] [place] INJECTION 04/22/2014 Visit Plan: Rocephin and Kenalog today a nd finish abx given from urgent care 04/21/2014 Appointment: María Elena Appiah WPtel: [address] [place], [place] [phone] [place] INJECTION 04/21/2014 Patient Education: Patient Medication Summary Completed 04/21/2014 Appointment: June Flores WPtel: [address] [place], [place] [phone] ACUTE ILLNESS 03/04/2014 Patient Education: Patient Medication Summary Completed 03/04/2014 Appointment: María Elena Appiah WPtel: [address] [place], [place] [phone] [place] INJECTION 02/27/2014 Patient Education: Patient Medication Summary Completed 02/27/2014 Visit Plan: Cryotherapy as above to all lesions Patient wants to try no meds for insomnia for a while and see how goes 01/13/2014 Appointment: María Elena Appiah WPtel: [address] [place], [place] [phone] OFFICE SURGERY 01/13/2014 Patient Education: Patient Medication Summary Completed 01/13/2014 Visit Plan: Stop Melatonin Stop Soma Tri al of trazadone 75mg q HS See ENT for possible tubes as has had chronic ETD and serous otitis media with numerous steroids 12/24/2013 Appointment: María Elena Appiah WPtel: [address] [place], [place] [phone] ACUTE ILLNESS 12/24/2013 Patient Education: Patient Medication Summary Completed 12/24/2013 Visit Plan: Saline nasal flushes prn. Ty lenol/Motrin prn headache. Notify if persists/symptoms worsening. 11/12/2013 Appointment: María Elena Appiah WPtel: [address] [place] [address] ACUTE ILLNESS 11/12/2013 Patient Education: Patient Medication Summary Completed 11/12/2013 Appointment: María Elena Appiah WPtel: [address] [place] [address] ACUTE ILLNESS 10/21/2013 Patient Education: Patient Medication Summary Completed 10/21/2013 Visit Plan: Sleep hygiene and sleep rout ine Melatonin 10mg q HS Support stockings and observe 09/22/2013 Appointment: María Elena Appiah WPtel: [address] [place] [address] ACUTE ILLNESS 09/22/2013 Patient Education: Patient Medication Summary Completed 09/22/2013 Appointment: June Flores WPtel: [address] [place] [address] ACUTE ILLNESS 08/27/2013 Patient Education: Patient Medication Summary Completed 08/27/2013 Visit Plan: Proceed with CT scan of head /neck Proceed with occipital nerve injections Butrans 20mcg patch weekly until can get into see Dr. Mcdonough for injections 08/04/2013 Appointment: María Elena Appiah WPtel: [address] [place] [address] FOLLOW UP 08/04/2013 Patient Education: Patient Medication Summary Completed 08/04/2013 Visit Plan: OMT done Daily neck stretche s, moist heat Increase Celebrex to 200mg BID Add flexeril 07/23/2013 Appointment: María Elena Appiah WPtel: [address] [place] [address] 07/22 voicemail FOLLOW UP 07/23/2013 Patient Education: Patient Medication Summary Completed 07/23/2013 Appointment: María Elena Appiah WPtel: [address] [place] [address] ACUTE ILLNESS 06/23/2013 Patient Education: Patient Medication Summary Completed 06/23/2013 Appointment: María lEena Appiah WPtel: [address] [place] [address] ACUTE ILLNESS 05/26/2013 Patient Education: Patient Medication Summary Completed 05/26/2013 Visit Plan: Decrease clonidine to 0.1mg TID If BP remains stable consider decreasing amlodopine Prednisone for 5 days BP check in 1mo 04/16/2013 Appointment: María Elena Appiah WPtel: [address] [place] [address] 04/14 pt called and confirmed appt FOLLOW UP 04/16/2013 Patient Education: Patient Medication Summary Completed 04/16/2013 Appointment: María Elena Appiah WPtel: [address] [place] [address] ACUTE ILLNESS 03/05/2013 Patient Education: Patient Medication Summary Completed 03/05/2013 Visit Plan: Pt has MARIA ELENA on with Dr. Sharonda Arita Butrans patch Refill Hydrocodone early tomorrow 12/23/2012 Appointment: María Elena Appiah WPtel: [address] [place] [address] FOLLOW UP 12/23/2012 Patient Education: Patient Medication Summary Completed 12/23/2012 Appointment: Lashawn Eckert WPtel: [address] [place] [address] ACUTE ILLNESS 12/16/2012 Patient Education: Patient Medication Summary Completed 12/16/2012 Visit Plan: Proceed with updated MRI of LS spine Continue gabapentin and add soma and diclofenac Will likely need to go for another epidural 12/09/2012 Appointment: María Elena Appiah WPtel: [address] [place] [address] ACUTE ILLNESS 12/09/2012 Patient Education: Patient Medication Summary Completed 12/09/2012 Visit Plan: Injection as above Finish me drol dose pack Chiropracter this afternoon 12/04/2012 Appointment: María Elena Appiah WPtel: [address] [place] [address] ACUTE ILLNESS 12/04/2012 Patient Education: Patient Medication Summary Completed 12/04/2012 Appointment: Mary Tillman WPtel: [address] [place] [address] FOLLOW UP 11/22/2012 Patient Education: Patient Medication Summary Completed 11/22/2012 Appointment: María Elena Appiah WPtel: [address] [place] [address] ACUTE ILLNESS 11/21/2012 Patient Education: Patient Medication Summary Completed 11/21/2012 Appointment: María Elena Appiah WPtel: [address] [place] [address] BP CHECK 11/07/2012 Patient Education: Patient Medication Summary Completed 11/07/2012 Visit Plan: reports extra clonidine and extra amlodipine and extra alprazalam. extra Ketolorac and promethazine last night. Bystolic 10 mg QAM and will continue all other blood pressure meds. Pt. encouraged to rest and hydrate. Discussed stroke and VT symptoms. Pt. instructed to seek ER eval if symptoms worsen or headache persists. Pt. agrees to ER eval/EMS transport if symptoms worsen. BP re-check. 10/29/2012 Appointment: Lashawn Eckert WPtel: [address] [place] [address] ACUTE ILLNESS 10/29/2012 Patient Education: Patient Medication Summary Completed 10/29/2012 Appointment: Maíra Elena Appiah WPtel: [address] [place] [address] ACUTE ILLNESS 10/14/2012 Patient Education: Patient Medication Summary Completed 10/14/2012 Appointment: María Elena Appiah WPtel: [address] [place] [address] UA 09/27/2012 Patient Education: Patient Medication Summary Completed 09/27/2012 Appointment: María Elena Appiah WPtel: [address] [place], [place] [phone] ACUTE ILLNESS 09/25/2012 Patient Education: Patient Medication Summary Completed 09/25/2012 Appointment: María Elena Appiah WPtel: [address] [place], [place] [phone] BP CHECK 09/24/2012 Appointment: María Elena Appiah WPtel: [address] [place], [place] [phone] ACUTE ILLNESS 08/29/2012 Patient Education: Patient Medication Summary Completed 08/29/2012 Visit Plan: Cryotherapy as above See Karlos m for right ear lesion--probable MOHs procedure Increase amlodopine to 10mg daily 08/12/2012 Appointment: María Elena Appiah WPtel: [address] [place], [place] [phone] OFFICE SURGERY 08/12/2012 Patient Education: Patient Medication Summary Completed 08/12/2012 Appointment: María Elena Appiah WPtel: [address] [place] [address] 05/03 vm on pt phone...pt called on 04/11 3 pt called wanting in had no one cancel so could not get her in for an appt sooner than 05/06. ACUTE ILLNESS 05/06/2012 Patient Education: Patient Medication Summary Completed 05/06/2012 Visit Plan: Pt wants to hold on any furt her sleep medications 04/03/2012 Appointment: María Elena Appiah WPtel: [address] [place], [place] [phone] FOLLOW UP 04/03/2012 Patient Education: Patient Medication Summary Completed 04/03/2012 Appointment: María Elena Appiah WPtel: [address] [place], [place] [phone] FOLLOW UP 03/19/2012 Patient Education: Patient Medication Summary Completed 03/19/2012 Appointment: María Elena Appiah WPtel: [address] [place] [address] BP CHECK 02/22/2012 Patient Education: Patient Medication Summary Completed 02/22/2012 Appointment: María Elena Appiah WPtel: [address] [place] [address] BP CHECK 02/21/2012 Patient Education: Patient Medication Summary Completed 02/21/2012 Visit Plan: Doxycycline and bactroban fo r foot Supportive care on ankles and knees Add norvasc for BP 02/20/2012 Appointment: María Elena Appiah WPtel: [address] [place] [address] ER Follow UP 02/20/2012 Patient Education: Patient Medication Summary Completed 02/20/2012 Appointment: María Elena Appiah WPtel: [address] [place] [address] ACUTE ILLNESS 01/30/2012 Patient Education: Patient Medication Summary Completed 01/30/2012 Appointment: María Elena Appiah WPtel: [address] [place] [address] ACUTE ILLNESS 01/24/2012 Patient Education: Patient Medication Summary Completed 01/24/2012 Visit Plan: Daily back stretches, moist heat, Biofreeze prn OMT done 01/10/2012 Appointment: María Elena Appiah WPtel: [address] [place] [address] ACUTE ILLNESS 01/10/2012 Patient Education: Patient Medication Summary Completed 01/10/2012 Appointment: María Elena Appiah WPtel: [address] [place] [address] FOLLOW UP 12/11/2011 Patient Education: Patient Medication Summary Completed 12/11/2011 Appointment: María Elena Appiah WPtel: [address] [place] [address] ACUTE ILLNESS 11/09/2011 Patient Education: Patient Medication Summary Completed 11/09/2011 Appointment: María Elena Appiahtel: [address] [place] [address] ACUTE ILLNESS 09/13/2011 Patient Education: Patient Medication Summary Completed 09/13/2011 Visit Plan: Check CBC, TSH, Free T4, CMP , ESR, Vit D, B12 now Start Prednisone today 08/31/2011 Appointment: María Elena Appiahtel: [address] [place] [address] ACUTE ILLNESS 08/31/2011 Patient Education: Patient Medication Summary Completed 08/31/2011 Appointment: María Elena Appiahtel: [address] [place] [address] US INJECTION 07/20/2011 Patient Education: Patient Medication Summary Completed 07/20/2011 Visit Plan: Continue current meds Monite r BP Cont stretches from PT 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 07/06/2011 Appointment: María Elena Appiahtel: [address] [place] [address] FOLLOW UP 07/06/2011 Patient Education: Patient Medication Summary Completed 07/06/2011 Appointment: María Elena Appiahtel: [address] [place] [address] BP CHECK 06/06/2011 Patient Education: Patient Medication Summary Completed 06/06/2011 Visit Plan: Add Bystolic at 2.5mg QAM Ad d Robaxin 750mg 2 po q HS BP check in 2wks 05/22/2011 Appointment: María Elena Appiahtel: [address] [place] [address] FOLLOW UP 05/22/2011 Patient Education: Patient Medication Summary Completed 05/22/2011 Appointment: María Elena Appiahtel: [address] [place] [address] ER Follow UP 05/09/2011 Patient Education: Patient Medication Summary Completed 05/09/2011 Appointment: María Elena Appiahtel: [address] [place] [address] US FOLLOW UP 02/22/2011 Visit Plan: Rx written for Hydrocodone 1 0/325mg #240 See Ortho 02/14/2011 Appointment: María Elena Appiah WPtel: [address] [place] [address] US OMT 02/14/2011 Patient Education: Patient Medication [...] lab work. 02/03/2011 Appointment: Lashawn Eckert WPtel: [address] [place] [address] ACUTE ILLNESS 02/03/2011 Patient Education: Patient Medication Summary Completed 02/03/2011 Visit Plan: OMT done Cont daily stretche s 01/31/2011 Appointment: María Elena Appiah WPtel: [address] [place] [address] ACUTE ILLNESS 01/31/2011 Patient Education: Patient Medication Summary Completed 01/31/2011 Visit Plan: Continue pain meds OMT done Proceed with PT No work this summer01/25/2011 Appointment: María Elena Appiah WPtel: [address] [place] [address] ACUTE ILLNESS 01/25/2011 Patient Education: Patient Medication Summary Completed 01/25/2011 Visit Plan: Start PT Long discussion abo ut getting pain meds from only us and can only have max of 4grams of tylenol per day Change to Hydrocodone 10/325mg 1- 2 po TID prn pain--#180 called to Radha 01/18/2011 Appointment: María Elena Appiahtel: [address] [place], [place] [phone] FOLLOW UP 01/18/2011 Patient Education: Patient Medication Summary Completed 01/18/2011 Visit Plan: Daily back stretches, moist heat, Biofreeze prn 11/29/2010 Appointment: María Elena Appiahtel: [address] [place] [address] ER Follow UP 11/29/2010 Patient Education: Patient Medication Summary Completed 11/29/2010 Visit Plan: Saline nasal flushes prn. Ty lenol/Motrin prn headache. Notify if persists/symptoms worsening. Finish augmentin Add Medrol Dose Pack 10/10/2010 Appointment: María Elena Appiahtel: [address] [place], [place] [id number] ACUTE ILLNESS 10/10/2010 Patient Education: Patient Medication Summary Completed 10/10/2010 Visit Plan: Cryotherapy x3 to multiple l esions on both forearms 07/19/2010 Appointment: María Elena Appiahtel: [address] [place], [place] [phone] OFFICE SURGERY 07/19/2010 Patient Education: Patient Medication Summary Completed 07/19/2010 Appointment: María Elena Appiahtel: [address] [place], [place] [id number] BP CHECK 07/06/2010 Patient Education: Patient Medication Summary Completed 07/06/2010 Appointment: María Elena Appiahtel: [address] [place], [place] [id number] BP CHECK 06/30/2010 Patient Education: Patient Medication Summary Completed 06/30/2010 Appointment: María Elena Appiah WPtel: [address] [place] [address] BP CHECK 06/20/2010 Patient Education: Patient Medication Summary Completed 06/20/2010 Visit Plan: Change Diovan to Exforge 160 /5mg QD OMT done to thoracics BP check in 2wks 06/07/2010 Appointment: María Elena Appiahtel: [address] [place] [address] FOLLOW UP 06/07/2010 Patient Education: Patient Medication Summary Completed 06/07/2010 Appointment: María Elena Appiah WPtel: [address] [place] [address] BP CHECK 06/03/2010 Patient Education: Patient Medication Summary Completed 06/03/2010 Appointment: María Elena Appiah WPtel: [address] [place] [address] BP CHECK 06/01/2010 Patient Education: Patient Medication Summary Completed 06/01/2010 Visit Plan: Irritated skin tags to left neck x2 excised at base with scissors and base cauterized 05/30/2010 Appointment: María Elena Appiah WPtel: [address] [place] [address] OFFICE SURGERY 05/30/2010 Patient Education: Patient Medication Summary Completed 05/30/2010 Visit Plan: Saline nasal flushes prn. Ty lenol/Motrin prn headache. Notify if persists/symptoms worsening. Restart Nasonex Has allergy testing set for May 25 04/27/2010 Appointment: María Elena Appiah WPtel: [address] [place], [place] [id number] ACUTE ILLNESS 04/27/2010 Patient Education: Patient Medication Summary Completed 04/27/2010 Visit Plan: Saline nasal flushes prn. Ty lenol/Motrin prn headache. Notify if persists/symptoms worsening. Omnaris BID plus injections 04/05/2010 Appointment: María Elena Appiah WPtel: [address] [place] [address] ACUTE ILLNESS 04/05/2010 Patient Education: Patient Medication Summary Completed 04/05/2010 Visit Plan: Saline nasal flushes prn. Ty lenol/Motrin prn headache. Notify if persists/symptoms worsening. 03/09/2010 Appointment: María Elena Appiah WPtel: [address] [place] [address] ACUTE ILLNESS 03/09/2010 Patient Education: Patient Medication Summary Completed 03/09/2010 Visit Plan: Cont Clonidine as is Cont Pr emarin Fwup with surgery as scheduled 03/03/2010 Appointment: María Elena Appiah WPtel: [address] [place] [address] FOLLOW UP 03/03/2010 Patient Education: Patient Medication Summary Completed 03/03/2010 Visit Plan: Check Pelvic US now Chelsey Sal C vs Hysterectomy 01/17/2010 Appointment: María Elena Appiah WPtel: [address] [place] [address] ACUTE ILLNESS 01/17/2010 Patient Education: Patient Medication Summary Completed 01/17/2010 Visit Plan: Check fasting lab and schedu le Mammogram 2gm Na Diet Trial of Ambien 10mg qhs Fwup pending lab results 12/27/2009 Appointment: María Elena Appiah WPtel: [address] [place] [address] ESTABLISHED PATIENT 12/27/2009 Patient Education: Patient Medication Summary Completed 12/27/2009 Referral: Canelo Overton WPtel: [address] [id number] [place] Referral Initiated Referral: Philipp Flores WPtel: [address] [id number] [place] Referral Appointment Requested Instructions Comment . [...] to rest and hydrate. Discussed stroke and VT symptoms. Pt. instructed to seek ER eval [...]
--- OUTSIDE RECORDS SUMMARY | 2020-03-13 06:08 | XMS REPORT | CCD ---
Author Author Gale Appiah D.O. 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 Name Role Phone María Elena Appiah D.O., PP Unavailable CCM Unavailable Summary Purpose Interface Exchange Insurance Providers Payer name Policy type / Coverage type Covered republican ID Effective Begin Date Effective End Date [facility] Commercial Insurance [id number] Unknown Family History Family History data not found Social History Social History Element Codes Description Effective Dates Tobacco history SNOMED CT: [id number] Never smoker 05/22/2011 Allergies, Adverse Reactions, Alerts [...] Start Date Stop Date Status Fill Instructions lisinopril 20 mg tablet RxNorm: 712662 1 Tablet(s) Oral QD 10/17/19 20 04/13/2020 Active gabapentin 300 mg capsule RxNorm: 179741 1 Capsule(s) O ral every night at bedtime 10/17/2019 01/15/2020 Active Januvia 100 mg tablet RxNorm: 486502 1 Tablet(s) Oral QD 10/17/2019 No Stop Date Active Steglatro 15 mg tablet RxNorm: 5539894 1 Tablet(s) Oral QD 10/17/19 No Stop Date Active Glyxambi 25 mg-5 mg tablet RxNorm: 5907410 1 Tablet(s) Oral QD 01/202010/16/2019 Inactive Patient will bring in copay discount card as well Glyxambi 25 mg-5 mg tablet RxNorm: 7547323 1 Tablet(s) Oral QD 01/202010/14/2019 Inactive Patient will bring in copay discount card as well Keflex 500 mg capsule RxNorm: 853200 1 Capsule(s) Oral two time s a day 10/07/2019 10/14/2019 Inactive Premarin 1.25 mg tablet RxNorm: 560637 1 Tablet(s) Oral QD 09/30/19 20 06/25/2020 Active hydrocodone 10 mg-acetaminophen 325 mg tablet RxNorm: 812468 1-2 Tablet(s) Oral three times a day as needed for pain 09/30/2019 09/30/2019 Inactive baclofen 10 mg tablet RxNorm: 122734 TAKE ONE TABLET BY MOUTH THREE TIMES A DAY NEEDED 09/19/2019 No Stop Date Active Klor-Con 8 mEq tablet,extended release RxNorm: 052337 T FARRUKH ONE TABLET BY MOUTH TWICE A DAY 1 Tablet(s) Oral two times a day 09/19/2019 10/19/2019 Act darion gabapentin 300 mg capsule RxNorm: 344660 TAKE ONE CAPSU LE BY MOUTH EVERY NIGHT AT BEDTIME 09/19/2019 10/16/2019 Inactive hydrocodone 10 mg-acetaminophen 325 mg tablet RxNorm: 239664 1-2 Tablet(s) Oral three times a day as needed for pain 09/19/2019 09/29/2019 Inactive duloxetine 60 mg capsule,delayed release RxNorm: 851378 TAKE ONE CAPSULE BY MOUTH DAILY 09/11/2019 No Stop Date Active Lipitor 10 mg tablet RxNorm: 557335 TAKE ONE TABLET BY MOUTH AT BEDTIME 09/11/2019 No Stop Date Active triamterene 75 mg-hydrochlorothiazide 50 mg tablet RxNorm: 3 23217 TAKE ONE TABLET BY MOUTH DAILY 09/11/2019 No Stop Date Active allopurinol 300 mg tablet RxNorm: 379238 TAKE ONE TABLET BY LOPEZ TH DAILY 09/11/2019 No Stop Date Active celecoxib 200 mg capsule RxNorm: 259434 TAKE ONE CAPSUL E BY MOUTH TWICE A DAY NEEDED FOR PAIN 09/11/2019 No Stop Date Active clonidine HCl 0.1 mg tablet RxNorm: 539197 TAKE ONE TAB LET BY MOUTH FOUR TIMES A DAY 09/11/2019 No Stop Date Active lisinopril 20 mg tablet RxNorm: 642271 TAKE ONE TABLET BY MOUTH DAILY .... THIS REPLACE 10MG TABLETS 09/11/2019 10/16/2019 Inactive doxepin 25 mg capsule RxNorm: 4755261 1 Capsule(s) Oral every night at bedtime as needed for sleep 08/21/2019 11/18/2019 Active hydrocodone 10 mg-acetaminophen 325 mg tablet RxNorm: 128786 1-2 Tablet(s) PO TID 08/12/2019 09/29/2019 Inactive as needed for pa in - Previous quantity #240, will start dosing for #180 in April 2011 per Doctor Td. Medrol (Dustin) 4 mg tablets in a dose pack RxNorm: 921334 Tablet(s) Oral As Directed 07/21/2019 09/29/2019 Inactive Premarin 1.25 mg tablet RxNorm: 438323 1 Tablet(s) Oral QD 07/02/20 19 09/29/2019 Inactive hydrocodone 10 mg-acetaminophen 325 mg tablet RxNorm: 379078 1-2 Tablet(s) PO TID 07/01/2019 08/11/2019 Inactive as needed for pa in - Previous quantity #240, will start dosing for #180 in April 2011 per Doctor Td. gabapentin 300 mg capsule RxNorm: 623491 1 Capsule(s) PO QHS 201809/18/2019 Inactive celecoxib 200 mg capsule RxNorm: 363869 1 Capsule(s) Or al two times a day as needed for pain 06/27/2019 06/27/2019 Inactive Singulair 10 mg tablet RxNorm: 433417 TAKE ONE TABLET BY MOUTH JOSÉ Y 06/24/2019 No Stop Date Active furosemide 40 mg tablet RxNorm: 107833 TAKE ONE TABLET BY MOUTH EVERY MORNING NEEDED FOR EDEMA . TAKE WITH POTASSIUM 06/24/2019 No Stop Date Active doxepin 25 mg capsule RxNorm: 2405408 TAKE ONE CAPSULE B Y MOUTH EVERY NIGHT AT BEDTIME NEEDED FOR SLEEP 06/24/2019 08/20/2019 Inactive lisinopril 20 mg tablet RxNorm: 380718 TAKE ONE TABLET BY MOUTH DAILY .... THIS REPLACE 10MG TABLETS 06/24/2019 09/10/2019 Inactive nystatin-triamcinolone 100,000 unit/g-0.1 % topical cream Rx Norm: 1724002 1 Application Topical two times a day 06/12/2019 06/19/2019 Inactive apply BID for 1 week nystatin-triamcinolone 100,000 unit/g-0.1 % topical cream Rx Norm: 7524777 1 Application Topical two times a day 06/12/2019 06/11/2019 Inactive apply BID for 1 week hydrocodone 10 mg-acetaminophen 325 mg tablet RxNorm: 607496 1-2 Tablet(s) PO QID as needed for pain MUST LAST 30 DAYS 05/28/2019 06/26/2019 Inactiv e (Response to an electronic controlled substance refill request - RxReferenceNumber: [id number]) baclofen 20 mg tablet RxNorm: 085029 1 Tablet(s) PO TID as needed for muscle spasm 05/19/2019 05/27/2019 Inactive gabapentin 300 mg capsule RxNorm: 745261 1 Capsule(s) PO QHS 201805/27/2019 Inactive lisinopril 20 mg tablet RxNorm: 399690 1 Tablet(s) PO Q D TAKE ONE TABLET BY MOUTH DAILY, REPLACES 10 MG DOSE 05/19/2019 06/23/2019 Inactive doxepin 25 mg capsule RxNorm: 6159224 TAKE ONE CAPSULE B Y MOUTH EVERY NIGHT AT BEDTIME NEEDED FOR SLEEP 05/16/2019 06/14/2019 Inactive lisinopril 20 mg tablet RxNorm: 792626 TAKE ONE TABLET BY MOUTH DAILY, REPLACES 10 MG DOSE 05/16/2019 05/18/2019 Inactive Singulair 10 mg tablet RxNorm: 677468 TAKE ONE TABLET BY MOUTH JOSÉ Y 05/16/2019 06/14/2019 Inactive gabapentin 300 mg capsule RxNorm: 250458 1 Capsule(s) PO QHS 201805/04/2019 Inactive estropipate 1.5 mg tablet RxNorm: 650997 1 Tablet(s) PO QD 05/05/2005/27/2019 Inactive estropipate 1.5 mg tablet RxNorm: 872252 1 Tablet(s) PO QD 05/05/20 19 05/04/2019 Inactive gabapentin 300 mg capsule RxNorm: 605197 1 Capsule(s) PO QHS 201805/18/2019 Inactive hydrocodone 10 mg-acetaminophen 325 mg tablet RxNorm: 170986 1-2 Tablet(s) PO QID as needed for pain MUST LAST 30 DAYS 04/25/2019 05/24/2019 Inactiv e (Response to an electronic controlled substance refill request - RxReferenceNumber: [id number]) metoprolol tartrate 100 mg tablet RxNorm: 706583 TAKE O NE TABLET BY MOUTH TWICE A DAY 04/24/2019 06/22/2019 Inactive cyclobenzaprine 10 mg tablet RxNorm: 657404 TAKE ONE TA BLET BY MOUTH THREE TIMES A DAY NEEDED FOR MUSCLE SPASMS 04/24/2019 05/18/2019 Inactive Lyrica 75 mg capsule RxNorm: 852037 1 Capsule(s) PO QHS 03/25/2019 Inactive duloxetine 60 mg capsule,delayed release RxNorm: 005598 TAKE ONE CAPSULE BY MOUTH DAILY 03/21/2019 05/19/2019 Inactive triamterene 75 mg-hydrochlorothiazide 50 mg tablet RxNorm: 3 56372 TAKE ONE TABLET BY MOUTH DAILY 03/21/2019 05/19/2019 Inactive Klor-Con 8 mEq tablet,extended release RxNorm: 125041 T FARRUKH ONE TABLET BY MOUTH TWICE A DAY 03/21/2019 09/18/2019 Inactive Lipitor 10 mg tablet RxNorm: 582763 TAKE ONE TABLET BY MOUTH AT BEDTIME 03/21/2019 09/10/2019 Inactive clonidine HCl 0.1 mg tablet RxNorm: 442486 TAKE ONE TAB LET BY MOUTH FOUR TIMES A DAY 03/21/2019 05/19/2019 Inactive allopurinol 300 mg tablet RxNorm: 666579 TAKE ONE TABLET BY LOPEZ TH DAILY 03/21/2019 05/19/2019 Inactive hydrocodone 10 mg-acetaminophen 325 mg tablet RxNorm: 199041 1-2 Tablet(s) PO QID as needed for pain MUST LAST 30 DAYS 02/28/2019 03/29/2019 Inactiv e (Response to an electronic controlled substance refill request - RxReferenceNumber: [id number]) furosemide 40 mg tablet RxNorm: 354250 TAKE ONE TABLET BY MOUTH EVERY MORNING NEEDED FOR EDEMA . TAKE WITH POTASSIUM 02/21/2019 03/22/2019 Inactive cyclobenzaprine 10 mg tablet RxNorm: 539949 TAKE ONE TA BLET BY MOUTH THREE TIMES A DAY NEEDED FOR MUSCLE SPASMS 02/21/2019 04/21/2019 Inactive lisinopril 20 mg tablet RxNorm: 617403 TAKE ONE TABLET BY MOUTH DAILY, REPLACES 10 MG DOSE 02/21/2019 05/15/2019 Inactive doxepin 25 mg capsule RxNorm: 7376664 TAKE ONE CAPSULE B Y MOUTH EVERY NIGHT AT BEDTIME NEEDED FOR SLEEP 02/21/2019 05/15/2019 Inactive nystatin 100,000 unit/gram topical cream RxNorm: 634173 APPLY TO AFFECTED AREA(S) TWO TIMES A DAY 02/21/2019 03/22/2019 Inactive estradiol 1 mg tablet RxNorm: 290273 2 Tablet(s) PO QD replaces premarin 01/22/2019 05/04/2019 Inactive lisinopril 20 mg tablet RxNorm: 760989 TAKE ONE TABLET BY MOUTH DAILY, REPLACES 10 MG DOSE 01/20/2019 02/18/2019 Inactive cyclobenzaprine 10 mg tablet RxNorm: 687470 TAKE ONE TA BLET BY MOUTH THREE TIMES A DAY NEEDED FOR MUSCLE SPASMS 01/20/2019 02/18/2019 Inactive metoprolol tartrate 100 mg tablet RxNorm: 438793 TAKE O NE TABLET BY MOUTH TWICE A DAY 01/20/2019 02/18/2019 Inactive cyclobenzaprine 10 mg tablet RxNorm: 154691 TAKE ONE TA BLET BY MOUTH THREE TIMES A DAY NEEDED FOR MUSCLE SPASMS 12/19/2018 01/17/2019 Inactive lisinopril 20 mg tablet RxNorm: 928946 TAKE ONE TABLET BY MOUTH DAILY, REPLACES 10 MG DOSE 12/19/2018 01/17/2019 Inactive duloxetine 60 mg capsule,delayed release RxNorm: 511199 TAKE ONE CAPSULE BY MOUTH DAILY 12/19/2018 01/17/2019 Inactive Lipitor 10 mg tablet RxNorm: 014072 TAKE ONE TABLET BY MOUTH AT BEDTIME 12/19/2018 01/17/2019 Inactive cyclobenzaprine 10 mg tablet RxNorm: 920011 1 Tablet(s) PO TID as needed for muscle spasm 11/19/2018 12/18/2018 Inactive Singulair 10 mg tablet RxNorm: 205598 1 Tablet(s) PO QD 11/19/2018 Inactive lisinopril 20 mg tablet RxNorm: 823667 TAKE ONE TABLET BY MOUTH DAILY, REPLACES 10 MG DOSE 11/15/2018 12/18/2018 Inactive hydrocodone 10 mg-acetaminophen 325 mg tablet RxNorm: 911897 1-2 Tablet(s) PO QID as needed for pain MUST LAST 30 DAYS 11/13/2018 12/12/2018 Inactiv e (Response to an electronic controlled substance refill request - RxReferenceNumber: [id number]) nystatin 100,000 unit/gram topical cream RxNorm: 035003 APPLY TO AFFECTED AREA(S) TWO TIMES A DAY 10/23/2018 11/06/2018 Inactive lisinopril 20 mg tablet RxNorm: 647802 1 Tablet(s) PO QD replac es 10mg dose 10/18/2018 11/14/2018 Inactive hydrocodone 10 mg-acetaminophen 325 mg tablet RxNorm: 043577 1-2 Tablet(s) QID as needed for pain MUST LAST 30 DAYS 10/08/2018 11/06/2018 Inactive (Response to an electronic controlled substance refill request - RxReferenceNumber: [id number]) lisinopril 10 mg tablet RxNorm: 333676 1 Tablet(s) PO QD 10/03/2018 0 01/21/2019 Inactive Celebrex 200 mg capsule RxNorm: 534544 TAKE ONE CAPSULE BY MOUT H TWICE A DAY 09/30/2018 05/04/2019 Inactive cyclobenzaprine 10 mg tablet RxNorm: 616612 TAKE ONE TA BLET BY MOUTH THREE TIMES A DAY NEEDED FOR MUSCLE SPASMS 09/30/2018 11/18/2018 Inactive doxepin 25 mg capsule RxNorm: 3897134 TAKE ONE CAPSULE B Y MOUTH EVERY NIGHT AT BEDTIME NEEDED 09/05/2018 10/16/2018 Inactive omeprazole 40 mg capsule,delayed release RxNorm: 967809 TAKE ONE CAPSULE BY MOUTH DAILY 09/05/2018 01/21/2019 Inactive furosemide 40 mg tablet RxNorm: 506527 TAKE ONE TABLET BY MOUTH EVERY MORNING NEEDED FOR EDEMA . TAKE WITH POTASSIUM 09/05/2018 11/03/2018 Inactive phentermine 37.5 mg tablet RxNorm: 840022 1 Tablet(s) PO QAM 201701/21/2019 Inactive doxepin 25 mg capsule RxNorm: 7492879 1 Capsule(s) PO QH S as needed for sleep TAKE ONE CAPSULE BY MOUTH EVERY NIGHT AT BEDTIME NEEDED 08/27/2018 09/04/2018 Inactive Keflex 500 mg capsule RxNorm: 203265 1 Capsule(s) PO TID 08/09/2018 1 10/19/2017 Inactive Diflucan 100 mg tablet RxNorm: 043054 1 Tablet(s) PO QD 08/09/2018 Inactive Premarin 1.25 mg tablet RxNorm: 839414 2 Tablet(s) PO QD 08/09/2018 0 05/04/2019 Inactive Zofran ODT 4 mg disintegrating tablet RxNorm: 611299 1 Tablet(s) PO Q4H as needed for nausea 08/09/2018 01/21/2019 Inactive metoprolol tartrate 100 mg tablet RxNorm: 768532 TAKE O NE TABLET BY MOUTH TWICE A DAY 2018 10/04/2018 Inactive doxepin 25 mg capsule RxNorm: 8038557 TAKE ONE CAPSULE B Y MOUTH EVERY NIGHT AT BEDTIME NEEDED 2018 08/26/2018 Inactive cyclobenzaprine 10 mg tablet RxNorm: 625551 TAKE ONE TA BLET BY MOUTH THREE TIMES A DAY NEEDED FOR MUSCLE SPASMS 2018 09/29/2018 Inactive hydrocodone 10 mg-acetaminophen 325 mg tablet RxNorm: 861565 1-2 Tablet(s) QID as needed for pain MUST LAST 30 DAYS 07/29/2018 08/27/2018 Inactive (Response to an electronic controlled substance refill request - RxReferenceNumber: [id number]) nystatin 100,000 unit/gram topical powder RxNorm: 374681 Applic ation TOP BID 07/22/2018 08/04/2018 Inactive doxepin 25 mg capsule RxNorm: 1325123 1 Capsule(s) PO QHS as needed 07/22/2018 08/05/2018 Inactive triamterene 75 mg-hydrochlorothiazide 50 mg tablet RxNorm: 3 28879 TAKE ONE TABLET BY MOUTH DAILY 07/05/2018 10/02/2018 Inactive duloxetine 60 mg capsule,delayed release RxNorm: 125000 TAKE ONE CAPSULE BY MOUTH DAILY 07/05/2018 09/02/2018 Inactive Klor-Con 8 mEq tablet,extended release RxNorm: 959393 T FARRUKH ONE TABLET BY MOUTH TWICE A DAY 07/05/2018 10/02/2018 Inactive Lipitor 10 mg tablet RxNorm: 074270 TAKE ONE TABLET BY MOUTH AT BEDTIME 07/05/2018 09/02/2018 Inactive allopurinol 300 mg tablet RxNorm: 836004 TAKE ONE TABLET BY LOPEZ TH DAILY 07/05/2018 10/02/2018 Inactive clonidine HCl 0.1 mg tablet RxNorm: 768803 TAKE ONE TAB LET BY MOUTH FOUR TIMES A DAY 07/05/2018 10/02/2018 Inactive hydrocodone 10 mg-acetaminophen 325 mg tablet RxNorm: 076773 1-2 Tablet(s) QID as needed for pain MUST LAST 30 DAYS 06/28/2018 07/27/2018 Inactive (Response to an electronic controlled substance refill request - RxReferenceNumber: [id number]) MediHoney (calcium alginate-honey) 4" X 5" bandage RxNorm: 1 Application TOP QD 06/17/2018 06/26/2018 Inactive honey-hydrocolloid dressing 4" X 5" RxNorm: 1 Application TOP QD 06/17/2018 07/16/2018 Inactive furosemide 40 mg tablet RxNorm: 797058 TAKE ONE TABLET BY MOUTH EVERY MORNING NEEDED FOR EDEMA . TAKE WITH POTASSIUM 06/10/2018 07/09/2018 Inactive This is a refill request. hydrocodone 10 mg-acetaminophen 325 mg tablet RxNorm: 347475 1-2 Tablet(s) QID as needed for pain MUST LAST 30 DAYS 05/30/2018 06/27/2018 Inactive (Response to an electronic controlled substance refill request - RxReferenceNumber: [id number]) acyclovir 800 mg tablet RxNorm: 280623 1 Tablet(s) PO 5x day 201705/22/2018 Inactive Premarin 1.25 mg tablet RxNorm: 214725 1-2 Tablet(s) PO QD 05/15/20 18 07/13/2018 Inactive cyclobenzaprine 10 mg tablet RxNorm: 679108 1 Tablet(s) PO TID as needed for muscle spasm 05/09/2018 05/08/2018 Inactive Medrol (Dustin) 4 mg tablets in a dose pack RxNorm: 438237 Tablet(s) PO As Directed 05/02/2018 06/16/2018 Inactive hydrocodone 10 mg-acetaminophen 325 mg tablet RxNorm: 719345 1-2 Tablet(s) QID as needed for pain MUST LAST 30 DAYS 04/30/2018 05/29/2018 Inactive (Response to an electronic controlled substance refill request - RxReferenceNumber: [id number]) duloxetine 60 mg capsule,delayed release RxNorm: 111417 TAKE ONE CAPSULE BY MOUTH DAILY 04/16/2018 05/15/2018 Inactive Celebrex 200 mg capsule RxNorm: 383996 TAKE ONE CAPSULE BY MOUT H TWICE A DAY 04/16/2018 06/14/2018 Inactive Singulair 10 mg tablet RxNorm: 333127 TAKE ONE TABLET BY MOUTH JOSÉ Y 04/16/2018 11/19/2018 Inactive Lipitor 10 mg tablet RxNorm: 598760 TAKE ONE TABLET BY MOUTH AT BEDTIME 04/16/2018 05/15/2018 Inactive hydrocodone 10 mg-acetaminophen 325 mg tablet RxNorm: 949512 1-2 Tablet(s) QID as needed for pain MUST LAST 30 DAYS 03/29/2018 04/27/2018 Inactive (Response to an electronic controlled substance refill request - RxReferenceNumber: [id number]) cyclobenzaprine 10 mg tablet RxNorm: 559751 1 Tablet(s) PO TID as needed for muscle spasm 03/18/2018 05/09/2018 Inactive omeprazole 40 mg capsule,delayed release RxNorm: 013620 1 Capsu le(s) PO QD 02/26/2018 08/24/2018 Inactive hydrocodone 10 mg-acetaminophen 325 mg tablet RxNorm: 462145 1-2 Tablet(s) QID as needed for pain MUST LAST 30 DAYS 02/26/2018 03/27/2018 Inactive (Response to an electronic controlled substance refill request - RxReferenceNumber: [id number]) metoprolol tartrate 100 mg tablet RxNorm: 543803 1 Tablet(s) PO BID 02/18/2018 08/05/2018 Inactive Lyrica 75 mg capsule RxNorm: 172403 1 Capsule(s) PO QHS 01/30/2018 Inactive phentermine 37.5 mg tablet RxNorm: 224400 1 Tablet(s) PO QAM 201706/16/2018 Inactive hydrocodone 10 mg-acetaminophen 325 mg tablet RxNorm: 012676 1-2 Tablet(s) QID as needed for pain MUST LAST 30 DAYS 01/29/2018 02/25/2018 Inactive (Response to an electronic controlled substance refill request - RxReferenceNumber: [id number]) Klor-Con 8 mEq tablet,extended release RxNorm: 662178 1 Tablet( s) PO BID 01/14/2018 07/04/2018 Inactive allopurinol 300 mg tablet RxNorm: 585983 1 Tablet(s) PO QD 01/15/2007/04/2018 Inactive Lipitor 10 mg tablet RxNorm: 734407 1 Tablet(s) PO QHS 01/14/201812/2017 Inactive triamterene 75 mg-hydrochlorothiazide 50 mg tablet RxNorm: 3 33825 1 Tablet(s) PO QD 01/14/2018 07/04/2018 Inactive hydrocodone 10 mg-acetaminophen 325 mg tablet RxNorm: 507119 1-2 Tablet(s) QID as needed for pain MUST LAST 30 DAYS 12/27/2017 01/25/2018 Inactive (Response to an electronic controlled substance refill request - RxReferenceNumber: [id number]) Onglyza 5 mg tablet RxNorm: 377615 1 Tablet(s) PO QD 12/18/201701/29 Inactive metformin 500 mg tablet RxNorm: 380625 1 Tablet(s) PO BID 12/11/2017 12/10/2017 Inactive metformin 500 mg tablet RxNorm: 185283 1 Tablet(s) PO BID 12/11/2017 12/17/2017 Inactive furosemide 40 mg tablet RxNorm: 337815 1 Tablet(s) PO Q AM prn edema--take with potassium 12/11/2017 06/08/2018 Inactive cyclobenzaprine 10 mg tablet RxNorm: 327842 1 Tablet(s) PO TID as needed for muscle spasm 12/11/2017 03/18/2018 Inactive hydrocodone 10 mg-acetaminophen 325 mg tablet RxNorm: 940164 1-2 Tablet(s) QID as needed for pain MUST LAST 30 DAYS 10/23/2017 11/21/2017 Inactive (Response to an electronic controlled substance refill request - RxReferenceNumber: [id number]) Lipitor 10 mg tablet RxNorm: 618540 1 Tablet(s) PO QHS 10/16/201703/2018 Inactive cyclobenzaprine 10 mg tablet RxNorm: 903349 1 Tablet(s) PO TID as needed for muscle spasm 10/09/2017 12/10/2017 Inactive hydroxyzine HCl 25 mg tablet RxNorm: 855128 1 Tablet(s) PO BID as needed for anxiety 09/20/2017 01/29/2018 Inactive Effexor XR 75 mg capsule,extended release RxNorm: 087569 1 Caps ule(s) PO QD 09/20/2017 01/29/2018 Inactive metoprolol tartrate 100 mg tablet RxNorm: 096798 1 Tablet(s) PO BID 08/20/2017 02/18/2018 Inactive baclofen 20 mg tablet RxNorm: 321470 1 Tablet(s) PO TID as needed for muscle spasm 08/20/2017 01/21/2019 Inactive clonidine HCl 0.1 mg tablet RxNorm: 388455 1 Tablet(s) PO QID 08/2005/16/2018 Inactive Seroquel 25 mg tablet RxNorm: 374103 1 Tablet(s) PO QHS 08/17/2017 Inactive Seroquel 25 mg tablet RxNorm: 081099 1 Tablet(s) PO QHS 08/17/2017 Inactive Diflucan 100 mg tablet RxNorm: 210040 TAKE ONE TABLET BY MOUTH JOSÉ Y 07/25/2017 08/07/2017 Inactive hydrocodone 10 mg-acetaminophen 325 mg tablet RxNorm: 431219 1-2 Tablet(s) QID as needed for pain MUST LAST 30 DAYS 07/19/2017 08/17/2017 Inactive (Response to an electronic controlled substance refill request - RxReferenceNumber: [id number]) clindamycin 300 mg capsule RxNorm: 588696 1 Capsule(s) PO TID 07/1907/28/2017 Inactive clotrimazole-betamethasone 1 %-0.05 % topical cream RxNorm: 577244 Application TOP BID to elbow rash 07/19/2017 06/16/2018 Inactive Singulair 10 mg tablet RxNorm: 246263 Tablet(s) TAKE ONE TABLET BY MOUTH DAILY 07/18/2017 04/13/2018 Inactive triamterene 75 mg-hydrochlorothiazide 50 mg tablet RxNorm: 3 10995 1 Tablet(s) PO QD 07/18/2017 01/14/2018 Inactive Celebrex 200 mg capsule RxNorm: 236537 Capsule(s) TAKE ONE CAPSULE BY MOUTH TWICE A DAY 07/18/2017 10/15/2017 Inactive hydrocodone 10 mg-acetaminophen 325 mg tablet RxNorm: 644487 1-2 Tablet(s) QID as needed for pain MUST LAST 30 DAYS 06/19/2017 07/18/2017 Inactive (Response to an electronic controlled substance refill request - RxReferenceNumber: [id number]) hydrocodone 10 mg-acetaminophen 325 mg tablet RxNorm: 318500 1-2 Tablet(s) QID as needed for pain MUST LAST 30 DAYS 06/19/2017 06/18/2017 Inactive (Response to an electronic controlled substance refill request [id number]) baclofen 20 mg tablet RxNorm: 677214 1 Tablet(s) PO TID as needed for muscle spasm 06/18/2017 08/20/2017 Inactive Medrol (Dustin) 4 mg tablets in a dose pack RxNorm: 171795 Tablet(s) PO As Directed 06/05/2017 07/18/2017 Inactive omeprazole 40 mg capsule,delayed release RxNorm: 992685 1 Capsu le(s) PO QD 04/20/2017 10/16/2017 Inactive Premarin 1.25 mg tablet RxNorm: 495850 1-2 Tablet(s) PO QD 04/11/20 17 05/15/2018 Inactive duloxetine 60 mg capsule,delayed release RxNorm: 122430 1 Capsu le(s) PO QD 04/11/2017 09/19/2017 Inactive furosemide 40 mg tablet RxNorm: 836432 1 Tablet(s) PO Q AM prn edema--take with potassium 04/11/2017 12/11/2017 Inactive Klor-Con 8 mEq tablet,extended release RxNorm: 792578 1 Tablet( s) PO BID 04/11/2017 01/14/2018 Inactive Lipitor 10 mg tablet RxNorm: 026730 1 Tablet(s) PO QHS 04/11/201702/2018 Inactive amlodipine 5 mg-benazepril 20 mg capsule RxNorm: 369892 1 Capsu le(s) PO QD 04/11/2017 01/29/2018 Inactive allopurinol 300 mg tablet RxNorm: 569664 1 Tablet(s) PO QD 04/11/20 17 01/14/2018 Inactive clonidine HCl 0.1 mg tablet RxNorm: 083815 1 Tablet(s) PO QID 04/0508/19/2017 Inactive baclofen 20 mg tablet RxNorm: 676694 1 Tablet(s) PO TID as needed for muscle spasm 04/02/2017 06/18/2017 Inactive Premarin 1.25 mg tablet RxNorm: 631134 1-2 Tablet(s) PO QD 03/20/20 17 04/10/2017 Inactive hydrocodone 10 mg-acetaminophen 325 mg tablet RxNorm: 589083 1-2 Tablet(s) QID as needed for pain MUST LAST 30 DAYS 03/14/2017 01/21/2019 Inactive (Response to an electronic controlled substance refill request - RxReferenceNumber: [id number]) metoprolol tartrate 100 mg tablet RxNorm: 054820 1 Tablet(s) PO BID 02/12/2017 08/20/2017 Inactive hydrocodone 10 mg-acetaminophen 325 mg tablet RxNorm: 165924 1-2 Tablet(s) QID as needed for pain MUST LAST 30 DAYS 02/08/2017 03/09/2017 Inactive (Response to an electronic controlled substance refill request - RxReferenceNumber: [id number]) metoprolol tartrate 100 mg tablet RxNorm: 307859 TAKE O NE TABLET BY MOUTH TWICE A DAY 01/11/2017 02/12/2017 Inactive metoprolol tartrate 100 mg tablet RxNorm: 838808 1 Tablet(s) PO BID 12/18/2016 12/17/2016 Inactive metoprolol tartrate 100 mg tablet RxNorm: 818159 1 Tablet(s) PO BID 12/18/2016 01/10/2017 Inactive furosemide 40 mg tablet RxNorm: 214554 1 Tablet(s) PO Q AM prn edema--take with potassium 12/13/2016 02/10/2017 Inactive amitriptyline 100 mg tablet RxNorm: 895435 1 Tablet(s) PO QHS 11/2812/12/2016 Inactive baclofen 20 mg tablet RxNorm: 063645 1 Tablet(s) PO TID as needed for muscle spasm 11/14/2016 04/01/2017 Inactive triamterene 75 mg-hydrochlorothiazide 50 mg tablet RxNorm: 3 38300 1 Tablet(s) PO QD 11/14/2016 11/13/2016 Inactive metolazone 2.5 mg tablet RxNorm: 515158 TAKE ONE TABLET BY MOUTH DAILY NEEDED FOR EDEMA 11/14/2016 12/12/2016 Inactive triamterene 75 mg-hydrochlorothiazide 50 mg tablet RxNorm: 3 41416 1 Tablet(s) PO QD 11/14/2016 07/18/2017 Inactive amitriptyline 50 mg tablet RxNorm: 762027 TAKE ONE TABL ET BY MOUTH AT BEDTIME NEEDED FOR SLEEP 11/14/2016 11/27/2016 Inactive Cymbalta 60 mg capsule,delayed release RxNorm: 373573 1 Capsule (s) PO QHS 11/14/2016 12/12/2016 Inactive clonidine HCl 0.1 mg tablet RxNorm: 042852 1 Tablet(s) PO QID 11/1304/04/2017 Inactive amitriptyline 50 mg tablet RxNorm: 980386 1 Tablet(s) P O QHS as needed for sleep 11/01/2016 11/27/2016 Inactive duloxetine 60 mg capsule,delayed release RxNorm: 982244 TAKE ONE CAPSULE BY MOUTH DAILY 10/20/2016 01/17/2017 Inactive allopurinol 300 mg tablet RxNorm: 967931 TAKE ONE TABLET BY LOPEZ TH DAILY 10/20/2016 01/16/2017 Inactive Lyrica 75 mg capsule RxNorm: 703044 TAKE ONE CAPSULE BY MOUTH EVERY NIGHT AT BEDTIME 10/20/2016 12/10/2016 Inactive Klor-Con 8 mEq tablet,extended release RxNorm: 631474 T FARRUKH ONE TABLET BY MOUTH TWICE A DAY 10/20/2016 01/17/2017 Inactive Celebrex 200 mg capsule RxNorm: 666558 TAKE ONE CAPSULE BY MOUT H TWICE A DAY 10/20/2016 07/18/2017 Inactive Bystolic 10 mg tablet RxNorm: 363438 TAKE ONE TABLET BY MOUTH EVERY NIGHT AT BEDTIME 10/20/2016 12/17/2016 Inactive amlodipine 5 mg-benazepril 20 mg capsule RxNorm: 856881 TAKE ONE CAPSULE BY MOUTH EVERY NIGHT AT BEDTIME -- TO REPLACE AMLODOPINE 10/20/20162016 Inactive Lipitor 10 mg tablet RxNorm: 823930 TAKE ONE TABLET BY MOUTH EVERY NIGHT AT BEDTIME 10/20/2016 01/17/2017 Inactive alprazolam 0.5 mg tablet RxNorm: 548659 3 Tablet(s) PO QHS as needed for sleep/anxiety 09/20/2016 10/31/2016 Inactive Tamiflu 75 mg capsule RxNorm: 192975 1 Capsule(s) PO QD 09/19/2016 Inactive Lyrica 75 mg capsule RxNorm: 495355 1 Capsule(s) PO QHS 09/19/2016 Inactive prednisone 20 mg tablet RxNorm: 245411 1 Tablet(s) PO QD 08/10/2016 1 10/17/2015 Inactive doxycycline hyclate 100 mg capsule RxNorm: 9296017 1 Capsule(s) PO BID 08/10/2016 08/19/2016 Inactive Medrol (Dustin) 4 mg tablets in a dose pack RxNorm: 260872 Tablet(s) PO As Directed 07/31/2016 08/22/2016 Inactive Singulair 10 mg tablet RxNorm: 843026 TAKE ONE TABLET BY MOUTH JOSÉ Y 07/27/2016 07/18/2017 Inactive hydrocodone 10 mg-acetaminophen 325 mg tablet RxNorm: 321962 1-2 Tablet(s) QID as needed for pain MUST LAST 30 DAYS 07/26/2016 08/24/2016 Inactive (Response to an electronic controlled substance refill request - RxReferenceNumber: [id number]) alprazolam 0.5 mg tablet RxNorm: 933880 3 Tablet(s) PO QHS as needed for anxiety or sleep 07/26/2016 09/20/2016 Inactive clindamycin 300 mg capsule RxNorm: 236254 1 Capsule(s) PO TID 07/2007/29/2016 Inactive Diflucan 100 mg tablet RxNorm: 101020 1 Tablet(s) PO QD 07/20/2016 Inactive Levaquin 500 mg tablet RxNorm: 308700 1 Tablet(s) PO QD 07/17/2016 Inactive Levaquin 500 mg tablet RxNorm: 031391 1 Tablet(s) PO QD 07/10/2016 Inactive Levaquin 500 mg tablet RxNorm: 164680 1 Tablet(s) PO QD 07/10/2016 Inactive mupirocin 2 % topical ointment RxNorm: 493201 TOP Apply topically to affected areas twice daily 07/06/2016 09/18/2016 Inactive Singulair 10 mg tablet RxNorm: 871417 TAKE ONE TABLET BY MOUTH JOSÉ Y 06/21/2016 01/21/2019 Inactive alprazolam 0.5 mg tablet RxNorm: 473692 TAKE THREE TABL ETS BY MOUTH AT BEDTIME NEEDED FOR SLEEP OR STRESS 05/22/2016 06/20/2016 Inactive triamterene 75 mg-hydrochlorothiazide 50 mg tablet RxNorm: 3 86200 1 Tablet(s) PO QD 04/26/2016 10/21/2016 Inactive Premarin 1.25 mg tablet RxNorm: 835325 1-2 Tablet(s) PO QD 04/26/20 16 03/20/2017 Inactive Klor-Con 8 mEq tablet,extended release RxNorm: 974563 1 Tablet( s) PO BID 04/26/2016 10/19/2016 Inactive Celebrex 200 mg capsule RxNorm: 553969 1 Capsule(s) PO BID TAKE ONE CAPSULE BY MOUTH EVERY DAY 04/26/2016 10/19/2016 Inactive Lipitor 10 mg tablet RxNorm: 232275 1 Tablet(s) PO QHS 04/26/201605/2017 Inactive allopurinol 300 mg tablet RxNorm: 085783 1 Tablet(s) PO QD TAKE ONE TABLET BY MOUTH EVERY DAY 04/26/2016 10/19/2016 Inactive amlodipine 5 mg-benazepril 20 mg capsule RxNorm: 698761 1 Capsule(s) PO QHS replaces amlodopine 04/26/2016 10/19/2016 Inactive duloxetine 60 mg capsule,delayed release RxNorm: 840623 1 Capsu le(s) PO QD 04/26/2016 10/19/2016 Inactive Bystolic 10 mg tablet RxNorm: 344514 1 Tablet(s) PO QHS 04/26/2016 Inactive Singulair 10 mg tablet RxNorm: 258292 1 Tablet(s) PO QD TAKE ONE TABLET BY MOUTH DAILY 04/26/2016 06/20/2016 Inactive clonidine HCl 0.1 mg tablet RxNorm: 801609 1 Tablet(s) PO QID 04/2610/22/2016 Inactive hydrocodone 10 mg-acetaminophen 325 mg tablet RxNorm: 199970 1-2 Tablet(s) QID as needed for pain TAKE ONE TO TWO TABLETS BY MOUTH FOUR TIMES A DAY . MUST LAST 30 DAYS 03/31/2016 04/29/2016 Inactive (Response to an electronic controlled substance refill request - RxReferenceNumber: [id number]) Klor-Con 8 mEq tablet,extended release RxNorm: 145156 T FARRUKH ONE TABLET BY MOUTH TWICE A DAY 03/24/2016 09/29/2019 Inactive prednisone 20 mg tablet RxNorm: 994858 1 Tablet(s) PO QD 03/09/2016 0 03/08/2016 Inactive prednisone 20 mg tablet RxNorm: 439639 1 Tablet(s) PO QD 03/09/2016 0 03/13/2016 Inactive alprazolam 0.5 mg tablet RxNorm: 249278 3 Tablet(s) PO QHS as needed for sleep/stress 03/02/2016 01/21/2019 Inactive mupirocin 2 % topical ointment RxNorm: 083077 TOP twice daily to affected areas of face and neck 02/21/2016 04/25/2016 Inactive clonidine HCl 0.1 mg tablet RxNorm: 763284 TAKE ONE TAB LET BY MOUTH FOUR TIMES A DAY 02/15/2016 09/29/2019 Inactive clonidine HCl 0.1 mg tablet RxNorm: 415423 1 Tablet(s) PO QID 02/1404/25/2016 Inactive Premarin 1.25 mg tablet RxNorm: 459656 1-2 Tablet(s) PO QD 02/15/20 16 03/15/2016 Inactive Klor-Con 8 mEq tablet,extended release RxNorm: 964192 T FARRUKH ONE TABLET BY MOUTH TWICE A DAY 02/15/2016 03/15/2016 Inactive potassium chloride ER 20 mEq tablet,extended release(part/cr yst) RxNorm: 525406 2 Tablet(s) PO BID 02/15/2016 03/15/2016 Inactive Macrobid 100 mg capsule RxNorm: 818748 1 Capsule(s) PO BID 01/24/20 16 01/30/2016 Inactive prednisone 20 mg tablet RxNorm: 504918 Take 3tabs PO QD x 2 days, then 2 tabs PO QD x 2 days, then 1 tab PO QD x 2 days, then 1/2 tab PO QDy x 2 days 12/23/2015 04/25/2016 Inactive Klor-Con 8 mEq tablet,extended release RxNorm: 964414 T FARRUKH ONE TABLET BY MOUTH TWICE A DAY 12/20/2015 02/14/2016 Inactive alprazolam 1 mg tablet RxNorm: 663815 1 1/2 Tablet(s) PO QHS 201501/23/2016 Inactive nystatin 100,000 unit/gram topical cream RxNorm: 389469 APPLY TO AFFECTED AREA(S) TWO TIMES A DAY 11/30/2015 12/14/2015 Inactive Singulair 10 mg tablet RxNorm: 390211 TAKE ONE TABLET BY MOUTH JOSÉ Y 11/18/2015 04/25/2016 Inactive allopurinol 300 mg tablet RxNorm: 765992 1 Tablet(s) PO QD TAKE ONE TABLET BY MOUTH EVERY DAY 10/26/2015 04/22/2016 Inactive Singulair 10 mg tablet RxNorm: 643581 TAKE ONE TABLET BY MOUTH JOSÉ Y 10/26/2015 11/17/2015 Inactive duloxetine 60 mg capsule,delayed release RxNorm: 922130 1 Capsu le(s) PO QD 10/26/2015 04/22/2016 Inactive triamterene 75 mg-hydrochlorothiazide 50 mg tablet RxNorm: 3 31842 1 Tablet(s) PO QD 10/26/2015 11/14/2016 Inactive potassium chloride ER 20 mEq tablet,extended release(part/cr yst) RxNorm: 013807 2 Tablet(s) PO BID 10/26/2015 02/14/2016 Inactive Lipitor 10 mg tablet RxNorm: 905217 1 Tablet(s) PO QHS 10/26/2015 Inactive amlodipine 5 mg-benazepril 20 mg capsule RxNorm: 742561 1 Capsule(s) PO QHS replaces amlodopine 10/26/2015 04/22/2016 Inactive Bystolic 10 mg tablet RxNorm: 888268 1 Tablet(s) PO QHS 10/26/2015 Inactive amlodipine 5 mg-benazepril 20 mg capsule RxNorm: 515163 1 Capsule(s) PO QHS replaces amlodopine 10/06/2015 10/25/2015 Inactive amlodipine 5 mg tablet RxNorm: 793260 1 Tablet(s) PO QHS 09/30/2015 0 04/25/2016 Inactive metolazone 2.5 mg tablet RxNorm: 826701 TAKE ONE TABLET BY MOUTH DAILY NEEDED FOR EDEMA 09/30/2015 01/21/2019 Inactive duloxetine 60 mg capsule,delayed release RxNorm: 623019 1 Capsu le(s) PO QD 09/30/2015 10/25/2015 Inactive cephalexin 500 mg capsule RxNorm: 997424 1 Capsule(s) PO BID 201509/23/2015 Inactive mupirocin 2 % topical ointment RxNorm: 503748 TOP twice daily to affected areas of face and neck 09/14/2015 02/20/2016 Inactive baclofen 20 mg tablet RxNorm: 110745 1 Tablet(s) PO TID as needed for muscle spasm 09/01/2015 11/14/2016 Inactive clonidine HCl 0.1 mg tablet RxNorm: 864068 1 Tablet(s) PO QID 09/0102/14/2016 Inactive alprazolam 1 mg tablet RxNorm: 157525 1 1/2 Tablet(s) PO QHS 201409/09/2015 Inactive baclofen 20 mg tablet RxNorm: 456697 1 Tablet(s) PO TID as needed for muscle spasm 07/23/2015 09/01/2015 Inactive omeprazole 40 mg capsule,delayed release RxNorm: 217384 1 Capsu le(s) PO QD 07/23/2015 04/25/2016 Inactive alprazolam 1 mg tablet RxNorm: 687615 1 1/2 Tablet(s) PO QHS 201408/10/2015 Inactive Bystolic 10 mg tablet RxNorm: 148154 1 Tablet(s) PO BID 06/24/2015 Inactive allopurinol 300 mg tablet RxNorm: 812746 1 Tablet(s) PO QD TAKE ONE TABLET BY MOUTH EVERY DAY 06/23/2015 10/20/2015 Inactive alprazolam 1 mg tablet RxNorm: 792986 1 1/2 Tablet(s) PO QHS 201407/06/2015 Inactive clonidine HCl 0.1 mg tablet RxNorm: 095679 1 Tablet(s) PO QID 06/0209/01/2015 Inactive clonidine HCl 0.1 mg tablet RxNorm: 178577 1 Tablet(s) PO QID 06/0206/01/2015 Inactive Cymbalta 60 mg capsule,delayed release RxNorm: 460699 1 Capsule (s) PO QHS 06/02/2015 08/30/2015 Inactive Cymbalta 60 mg capsule,delayed release RxNorm: 638495 1 Capsule (s) PO QHS 06/02/2015 06/01/2015 Inactive clonidine HCl 0.1 mg tablet RxNorm: 132845 1 Tablet(s) PO TID 05/3106/01/2015 Inactive replaces 0.2mg dose metolazone 2.5 mg tablet RxNorm: 831356 TAKE ONE TABLET BY MOUTH DAILY NEEDED FOR EDEMA 05/21/2015 06/19/2015 Inactive Singulair 10 mg tablet RxNorm: 446622 TAKE ONE TABLET BY MOUTH JOSÉ Y 05/21/2015 10/17/2015 Inactive Cymbalta 30 mg capsule,delayed release RxNorm: 255590 1 Capsule (s) PO QHS 05/20/2015 11/14/2016 Inactive betamethasone valerate 0.1 % topical cream RxNorm: 607247 Appli cation TOP BID 05/10/2015 04/25/2016 Inactive Bactroban 2 % topical ointment RxNorm: 455898 Application TOP BID 0 05/10/2015 06/20/2015 Inactive baclofen 20 mg tablet RxNorm: 040611 1 Tablet(s) PO TID as needed 0 04/26/2015 07/23/2015 Inactive Lipitor 10 mg tablet RxNorm: 621531 1 Tablet(s) PO QHS 04/26/201508/2016 Inactive clonidine HCl 0.1 mg tablet RxNorm: 838216 1 Tablet(s) PO TID 04/2605/30/2015 Inactive replaces 0.2mg dose Klor-Con 8 mEq tablet,extended release RxNorm: 165869 1 Tablet( s) PO BID 04/26/2015 04/25/2016 Inactive metolazone 2.5 mg tablet RxNorm: 997330 1 Tablet(s) PO QD as ne eded for edema 04/26/2015 04/25/2015 Inactive triamterene 75 mg-hydrochlorothiazide 50 mg tablet RxNorm: 3 07605 1 Tablet(s) PO QD 04/26/2015 10/22/2015 Inactive Premarin 1.25 mg tablet RxNorm: 591441 1-2 Tablet(s) PO QD 04/26/20 15 10/22/2015 Inactive Bystolic 10 mg tablet RxNorm: 433629 1 Tablet(s) PO QAM TAKE ONE TABLET BY MOUTH EVERY MORNING 04/23/2015 06/23/2015 Inactive clonidine HCl 0.1 mg tablet RxNorm: 285954 1 Tablet(s) PO TID 03/2304/25/2015 Inactive replaces 0.2mg dose nystatin 100,000 unit/gram topical cream RxNorm: 442239 Applica tion TOP BID 03/23/2015 06/20/2015 Inactive baclofen 20 mg tablet RxNorm: 358978 1 Tablet(s) PO TID as needed 0 03/23/2015 04/25/2015 Inactive Premarin 1.25 mg tablet RxNorm: 727195 1-2 Tablet(s) PO QD 03/23/20 15 04/25/2015 Inactive Klor-Con 8 mEq tablet,extended release RxNorm: 859869 1 Tablet( s) PO BID 03/23/2015 04/25/2015 Inactive cefdinir 300 mg capsule RxNorm: 892733 2 Capsule(s) PO QD 03/16/2015 03/25/2015 Inactive baclofen 20 mg tablet RxNorm: 336456 1 Tablet(s) PO TID as needed 0 03/02/2015 03/22/2015 Inactive allopurinol 300 mg tablet RxNorm: 289713 1 Tablet(s) PO QD TAKE ONE TABLET BY MOUTH EVERY DAY 02/22/2015 05/22/2015 Inactive Klor-Con M20 mEq tablet,extended release RxNorm: 265976 2 Tablet(s) PO BID to use with lasix 02/22/2015 06/20/2015 Inactive clonidine HCl 0.1 mg tablet RxNorm: 942390 1 Tablet(s) PO TID 02/1903/22/2015 Inactive replaces 0.2mg dose Lipitor 10 mg tablet RxNorm: 178102 1 Tablet(s) PO QHS 01/20/201506/2015 Inactive Lipitor 10 mg tablet RxNorm: 985487 1 Tablet(s) PO QHS 01/20/2015 Inactive Singulair 10 mg tablet RxNorm: 422528 1 Tablet(s) PO QD TAKE ONE TABLET BY MOUTH EVERY DAY 11/20/2014 05/18/2015 Inactive Lipitor 10 mg tablet RxNorm: 293303 1 Tablet(s) PO QHS 11/20/201408/2015 Inactive allopurinol 300 mg tablet RxNorm: 401727 1 Tablet(s) PO QD TAKE ONE TABLET BY MOUTH EVERY DAY 11/20/2014 02/16/2015 Inactive Bystolic 10 mg tablet RxNorm: 096631 1 Tablet(s) PO QAM TAKE ONE TABLET BY MOUTH EVERY MORNING 11/20/2014 04/22/2015 Inactive Klor-Con 8 mEq tablet,extended release RxNorm: 485382 1 Tablet( s) PO BID 11/20/2014 02/17/2015 Inactive baclofen 20 mg tablet RxNorm: 530806 1 Tablet(s) PO TID as needed 0 11/20/2014 01/21/2019 Inactive baclofen 20 mg tablet RxNorm: 117461 1 Tablet(s) PO TID as needed 0 10/27/2014 11/19/2014 Inactive baclofen 20 mg tablet RxNorm: 238208 1 Tablet(s) PO TID as needed 0 10/26/2014 03/01/2015 Inactive allopurinol 300 mg tablet RxNorm: 877990 1 Tablet(s) PO QD TAKE ONE TABLET BY MOUTH EVERY DAY 10/26/2014 11/20/2014 Inactive Bystolic 10 mg tablet RxNorm: 756616 1 Tablet(s) PO QAM TAKE ONE TABLET BY MOUTH EVERY MORNING 10/26/2014 11/20/2014 Inactive clonidine HCl 0.1 mg tablet RxNorm: 349339 1 Tablet(s) PO TID 09/2805/27/2019 Inactive replaces 0.2mg dose clonidine HCl 0.1 mg tablet RxNorm: 905000 1 Tablet(s) PO TID 09/2802/18/2015 Inactive replaces 0.2mg dose baclofen 20 mg tablet RxNorm: 419306 1 Tablet(s) PO TID as needed 1 11/01/2013 08/30/2014 Inactive Lipitor 10 mg tablet RxNorm: 835293 1 Tablet(s) PO QHS 08/31/2014 Inactive baclofen 20 mg tablet RxNorm: 252487 1 Tablet(s) PO TID as needed 1 11/01/2013 10/26/2014 Inactive triamterene 75 mg-hydrochlorothiazide 50 mg tablet RxNorm: 3 06273 1 Tablet(s) PO QD 08/31/2014 02/26/2015 Inactive Klor-Con 8 mEq tablet,extended release RxNorm: 973203 1 Tablet( s) PO BID 08/31/2014 11/20/2014 Inactive baclofen 20 mg tablet RxNorm: 677652 1 Tablet(s) PO TID as needed 1 09/30/2013 10/25/2014 Inactive baclofen 20 mg tablet RxNorm: 085041 1 Tablet(s) PO TID as needed 1 09/30/2013 08/31/2014 Inactive omeprazole 40 mg capsule,delayed release RxNorm: 349921 1 Capsu le(s) PO QD 07/21/2014 07/23/2015 Inactive Flonase 50 mcg/actuation nasal spray,suspension RxNorm: 8963 23 1 [place] NASAL BID 07/15/2014 04/09/2017 Inactive hydrocodone 10 mg-acetaminophen 325 mg tablet RxNorm: 038317 1-2 Tablet(s) QID as needed for pain TAKE ONE TO TWO TABLETS BY MOUTH FOUR TIMES A DAY . MUST LAST 30 DAYS 06/30/2014 07/27/2014 Inactive (Response to an electronic controlled substance refill request - RxReferenceNumber: [id number]) baclofen 20 mg tablet RxNorm: 999326 1 Tablet(s) PO TID as needed 1 07/31/2014 Inactive Singulair 10 mg tablet RxNorm: 671160 1 Tablet(s) PO QD TAKE ONE TABLET BY MOUTH EVERY DAY 05/25/2014 11/20/2014 Inactive Bystolic 10 mg tablet RxNorm: 157785 TAKE ONE TABLET BY MOUTH E VERY MORNING 05/25/2014 09/21/2014 Inactive allopurinol 300 mg tablet RxNorm: 532288 1 Tablet(s) PO QD TAKE ONE TABLET BY MOUTH EVERY DAY 05/25/2014 10/21/2014 Inactive baclofen 20 mg tablet RxNorm: 468957 1 Tablet(s) PO TID as needed 0 05/25/2014 06/29/2014 Inactive allopurinol 300 mg tablet RxNorm: 940369 TAKE ONE TABLET BY LOPEZ TH EVERY DAY 05/25/2014 09/21/2014 Inactive Singulair 10 mg tablet RxNorm: 031365 1 Tablet(s) PO QD TAKE ONE TABLET BY MOUTH EVERY DAY 05/25/2014 05/24/2014 Inactive Bystolic 10 mg tablet RxNorm: 381573 1 Tablet(s) PO QAM TAKE ONE TABLET BY MOUTH EVERY MORNING 05/25/2014 10/21/2014 Inactive metolazone 2.5 mg tablet RxNorm: 400881 1 Tablet(s) PO QD as ne eded for edema 05/18/2014 04/25/2015 Inactive Lasix 40 mg tablet RxNorm: 700882 1 Tablet(s) PO QAM s hould take potassium supplementation with this medication 05/14/2014 05/17/2014 Inactive hydrocodone 10 mg-acetaminophen 325 mg tablet RxNorm: 537536 1-2 Tablet(s) QID as needed for pain TAKE ONE TO TWO TABLETS BY MOUTH FOUR TIMES A DAY . MUST LAST 30 DAYS 05/07/2014 06/05/2014 Inactive (Response to an electronic controlled substance refill request - RxReferenceNumber: [id number]) alprazolam 0.5 mg tablet RxNorm: 936426 TAKE ONE TABLET BY MOUTH TWICE A DAY , MUST LAST 30 DAYS 05/07/2014 05/22/2016 Inactive (Response to a n electronic controlled substance refill request - RxReferenceNumber: [id number]) diclofenac sodium 75 mg tablet,delayed release RxNorm: 30412 6 1 Tablet(s) PO BID for pain 04/24/2014 07/20/2014 Inactive Celebrex 200 mg capsule RxNorm: 508600 TAKE ONE CAPSULE BY MOUT H EVERY DAY 04/24/2014 07/20/2014 Inactive alprazolam 0.5 mg tablet RxNorm: 855696 TAKE ONE TABLET BY MOUTH TWICE A DAY , MUST LAST 30 DAYS 03/24/2014 04/22/2014 Inactive (Response to a n electronic controlled substance refill request - RxReferenceNumber: [id number]) diclofenac sodium 75 mg tablet,delayed release RxNorm: 21116 6 1 Tablet(s) PO BID for pain 03/24/2014 04/24/2014 Inactive clonidine HCl 0.1 mg tablet RxNorm: 548776 1 Tablet(s) PO TID 03/2409/28/2014 Inactive replaces 0.2mg dose Klor-Con 8 mEq tablet,extended release RxNorm: 438446 1 Tablet( s) PO BID 02/26/2014 08/31/2014 Inactive diclofenac sodium 75 mg tablet,delayed release RxNorm: 04080 6 1 Tablet(s) PO BID for pain 02/25/2014 03/24/2014 Inactive hydrocodone 10 mg-acetaminophen 325 mg tablet RxNorm: 747892 1-2 Tablet(s) QID as needed for pain TAKE ONE TO TWO TABLETS BY MOUTH FOUR TIMES A DAY . MUST LAST 30 DAYS 02/25/2014 03/26/2014 Inactive (Response to an electronic controlled substance refill request - RxReferenceNumber: [id number]) alprazolam 0.5 mg tablet RxNorm: 704662 Tablet(s) PO BI D as needed for anxiety TAKE ONE TABLET BY MOUTH TWICE A DAY , MUST LAST 30 DAYS 02/25/2014 Inactive (Response to an electronic controlled [place] bstance refill request - RxReferenceNumber: [id number]) [AttnRPh: Saving apply/adjudicate RxGRP:SG20 RxBIN:[id number] RxPCN: ID#:[id number]] alprazolam 0.5 mg tablet RxNorm: 351169 Tablet(s) TAKE ONE TABLET BY MOUTH TWICE A DAY , MUST LAST 30 DAYS 01/27/2014 02/24/2014 Inactive (Respo nse to an electronic controlled substance refill request - RxReferenceNumber: [id number]) [AttnRPh: Saving apply/adjudicate RxGRP:SG20 RxBIN:[id number] RxPCN:HT ID#:[id number]] hydrocodone 10 mg-acetaminophen 325 mg tablet RxNorm: 287055 1-2 Tablet(s) QID as needed for pain TAKE ONE TO TWO TABLETS BY MOUTH FOUR TIMES A DAY . MUST LAST 30 DAYS 01/27/2014 02/24/2014 Inactive (Response to an electronic controlled substance refill request - RxReferenceNumber: [id number]) alprazolam 0.5 mg tablet RxNorm: 925196 TAKE ONE TABLET BY MOUTH TWICE A DAY , MUST LAST 30 DAYS 01/27/2014 01/26/2014 Inactive (Response to a n electronic controlled substance refill request - RxReferenceNumber: [id number]) Premarin 1.25 mg tablet RxNorm: 886239 1-2 Tablet(s) PO QD 01/28/20 14 07/25/2014 Inactive alprazolam 0.5 mg tablet RxNorm: 550750 TAKE ONE TABLET BY MOUTH TWICE A DAY , MUST LAST 30 DAYS 01/27/2014 01/27/2014 Inactive (Response to a n electronic controlled substance refill request - RxReferenceNumber: [id number]) hydrocodone 10 mg-acetaminophen 325 mg tablet RxNorm: 354991 TAKE ONE TO TWO TABLETS BY MOUTH FOUR TIMES A DAY . MUST LAST 30 DAYS 01/27/20142013 Inactive (Response to an electronic controlled [place] bstance refill request - RxReferenceNumber: [id number]) Celebrex 200 mg capsule RxNorm: 948508 1 Capsule(s) PO QD TAKE ONE CAPSULE BY MOUTH EVERY DAY 12/29/2013 04/27/2014 Inactive hydrocodone 10 mg-acetaminophen 325 mg tablet RxNorm: 179477 1-2 Tablet(s) PO QID as needed for severe pain 12/29/2013 01/27/2014 Inactive allopurinol 300 mg tablet RxNorm: 196882 1 Tablet(s) PO QD TAKE ONE TABLET BY MOUTH EVERY DAY 12/29/2013 05/24/2014 Inactive alprazolam 0.5 mg tablet RxNorm: 639077 TAKE ONE TABLET BY MOUTH TWICE A DAY , MUST LAST 30 DAYS 12/29/2013 01/27/2014 Inactive (Response to a n electronic controlled substance refill request - RxReferenceNumber: [id number]) Celebrex 200 mg capsule RxNorm: 111779 1 Capsule(s) PO QD TAKE ONE CAPSULE BY MOUTH EVERY DAY 12/29/2013 12/29/2013 Inactive Bystolic 10 mg tablet RxNorm: 758237 1 Tablet(s) PO QAM TAKE ONE TABLET BY MOUTH EVERY MORNING 12/29/2013 05/24/2014 Inactive Bystolic 10 mg tablet RxNorm: 132304 1 Tablet(s) PO QAM TAKE ONE TABLET BY MOUTH EVERY MORNING 12/29/2013 12/29/2013 Inactive Singulair 10 mg tablet RxNorm: 482219 1 Tablet(s) PO QD TAKE ONE TABLET BY MOUTH EVERY DAY 12/29/2013 05/25/2014 Inactive hydrocodone 10 mg-acetaminophen 325 mg tablet RxNorm: 075758 TAKE ONE TO TWO TABLETS BY MOUTH FOUR TIMES A DAY . MUST LAST 30 DAYS 12/29/20132013 Inactive (Response to an electronic controlled [place] bstance refill request - RxReferenceNumber: [id number]) Trazadone 75mg Tablet RxNorm: 1 Tablet(s) PO QHS as needed 03/23/2014 Inactive Trazadone 75mg Tablet RxNorm: 1 Tablet(s) PO QHS 12/24/20132014 Inactive Soma 350 mg tablet RxNorm: 970421 Tablet(s) PO TAKE ON E TABLET BY MOUTH THREE TIMES A DAY NEEDED FOR MUSCLE SPASMS. THIS MUST LAST 30 DAYS BETWEEN REFILLS. 12/10/2013 12/22/2013 Inactive (Appended: Cont rolled substance eRx refill - RxReferenceNumber: [id number]) diclofenac sodium 75 mg tablet,delayed release RxNorm: 32272 6 1 Tablet(s) PO BID for pain 12/10/2013 02/24/2014 Inactive allopurinol 300 mg tablet RxNorm: 567890 1 Tablet(s) PO QD 11/20/19 14 12/29/2013 Inactive alprazolam 0.5 mg tablet RxNorm: 987386 2 Tablet(s) PO BID 11/13/19 14 12/29/2013 Inactive prn clonidine 0.1 mg tablet RxNorm: 404280 1 Tablet(s) PO TID 11/12/2013 02/09/2014 Inactive replaces 0.2mg dose Klor-Con M20 mEq tablet,extended release RxNorm: 875149 2 Tablet(s) PO BID to use with lasix 11/12/2013 05/10/2014 Inactive Singulair 10 mg tablet RxNorm: 814825 1 Tablet(s) PO QD 11/12/2013 Inactive hydrocodone 10 mg-acetaminophen 325 mg tablet RxNorm: 549267 1-2 Tablet(s) PO QID as needed for severe pain 11/12/2013 12/28/2013 Inactive Bystolic 10 mg tablet RxNorm: 184449 1 Tablet(s) PO QAM 11/12/2013 Inactive Soma 350 mg tablet RxNorm: 260315 Tablet(s) PO TAKE ON E TABLET BY MOUTH THREE TIMES A DAY NEEDED FOR MUSCLE SPASMS. THIS MUST LAST 30 DAYS BETWEEN REFILLS. 10/13/2013 12/10/2013 Inactive (Appended: Cont rolled substance eRx refill - RxReferenceNumber: [id number]) hydrocodone 10 mg-acetaminophen 325 mg tablet RxNorm: 005071 1-2 Tablet(s) PO QID as needed for severe pain 10/03/2013 11/11/2013 Inactive diclofenac sodium 75 mg tablet,delayed release RxNorm: 29684 8 1 Tablet(s) PO BID for pain 09/11/2013 12/10/2013 Inactive alprazolam 0.5 mg tablet RxNorm: 380064 1 Tablet(s) PO BID May refill on 04/26/13 09/01/2013 10/30/2013 Inactive prn hydrocodone 10 mg-acetaminophen 325 mg tablet RxNorm: 466797 1-2 Tablet(s) PO QID as needed for severe pain 09/01/2013 10/02/2013 Inactive triamterene 75 mg-hydrochlorothiazide 50 mg tablet RxNorm: 3 45737 1 Tablet(s) PO QD 08/04/2013 08/31/2014 Inactive cyclobenzaprine 10 mg tablet RxNorm: 333639 1 Tablet(s) PO TID prn spasm 08/04/2013 08/13/2013 Inactive clonidine 0.1 mg tablet RxNorm: 143849 1 Tablet(s) PO TID 08/04/2013 11/11/2013 Inactive replaces 0.2mg dose cyclobenzaprine 10 mg tablet RxNorm: 307080 1 Tablet(s) PO TID prn spasm 07/23/2013 08/01/2013 Inactive hydrocodone 10 mg-acetaminophen 325 mg tablet RxNorm: 091598 2 1-2 Tablet(s) PO QID as needed for severe pain 06/09/2013 08/07/2013 Inactive Singulair 10 mg tablet RxNorm: 799874 1 Tablet(s) PO QD 05/29/2013 Inactive Klor-Con 8 mEq tablet,extended release RxNorm: 741013 1 Tablet( s) PO BID 05/29/2013 02/26/2014 Inactive allopurinol 300 mg tablet RxNorm: 748916 1 Tablet(s) PO QD 05/29/20 13 11/19/2013 Inactive Bystolic 10 mg tablet RxNorm: 910544 1 Tablet(s) PO QAM take one daily in the morning. 05/29/2013 11/11/2013 Inactive scopolamine 1.5 mg 72 hr Transderm Patch RxNorm: 540209 Application TD Q72H for motion sickness 05/26/2013 07/22/2013 Inactive Soma 350 mg tablet RxNorm: 366326 1 Tablet(s) PO TID as needed for spasm 05/19/2013 10/13/2013 Inactive diclofenac sodium 75 mg tablet,delayed release RxNorm: 50437 8 1 Tablet(s) PO BID for pain 05/14/2013 07/22/2013 Inactive allopurinol 300 mg tablet RxNorm: 818394 1 Tablet(s) PO QD 04/25/20 13 05/28/2013 Inactive alprazolam 0.5 mg tablet RxNorm: 361112 1 Tablet(s) PO BID May refill on 04/26/13 04/25/2013 06/23/2013 Inactive prn Celebrex 200 mg capsule RxNorm: 522920 1 Capsule(s) PO QD 04/16/2013 12/29/2013 Inactive alprazolam 0.5 mg tablet RxNorm: 644722 1 Tablet(s) PO BID May refill on 04/26/13 04/16/2013 04/24/2013 Inactive prn Soma 350 mg tablet RxNorm: 177971 1 Tablet(s) PO TID as needed for spasm 04/16/2013 No Stop Date Active Lasix 40 mg tablet RxNorm: 004077 1 Tablet(s) PO QAM s hould take potassium supplementation with this medication 04/16/2013 06/14/2013 Inactive clonidine 0.1 mg tablet RxNorm: 025162 1 Tablet(s) PO TID 04/16/2013 08/03/2013 Inactive replaces 0.2mg dose prednisone 20 mg tablet RxNorm: 055369 1 Tablet(s) PO BID 04/16/2013 04/20/2013 Inactive diclofenac sodium 75 mg tablet,delayed release RxNorm: 27938 8 1 Tablet(s) PO BID for pain 04/14/2013 05/13/2013 Inactive hydrocodone 10 mg-acetaminophen 325 mg tablet RxNorm: 530415 2 1-2 Tablet(s) PO QID as needed for severe pain 04/14/2013 No Stop Date Active Lasix 40 mg tablet RxNorm: 924224 1 Tablet(s) PO QAM s hould take potassium supplementation with this medication 03/31/2013 04/15/2013 Inactive Celebrex 200 mg capsule RxNorm: 503509 1 Capsule(s) PO QD 03/31/2013 04/15/2013 Inactive alprazolam 0.5 mg tablet RxNorm: 020392 1 Tablet(s) PO BID 03/28/20 13 04/15/2013 Inactive prn hydrocodone 10 mg-acetaminophen 325 mg tablet RxNorm: 870429 2 1-2 Tablet(s) PO QID as needed for severe pain 03/10/2013 No Stop Date Active metformin ER 500 mg 24 hr tablet,extended release RxNorm: 86 1018 1 Tablet(s) PO QD 03/06/2013 07/22/2013 Inactive clindamycin 300 mg capsule RxNorm: 250545 2 Capsule(s) PO TID 03/0503/14/2013 Inactive Zaroxolyn 2.5 mg tablet RxNorm: 226070 1 Tablet(s) PO QAM 03/05/2013 05/19/2015 Inactive amlodipine 10 mg tablet RxNorm: 401382 1 Tablet(s) PO QD 03/03/2013 0 05/25/2013 Inactive Norvasc 10 mg tablet RxNorm: 959163 1 Tablet(s) PO QD 02/28/201307/11 Inactive Celebrex 200 mg capsule RxNorm: 321263 1 Capsule(s) PO QD 02/28/2013 03/30/2013 Inactive diclofenac sodium 75 mg tablet,delayed release RxNorm: 17555 8 1 Tablet(s) PO BID for pain 02/14/2013 03/15/2013 Inactive Soma 350 mg tablet RxNorm: 054253 1 Tablet(s) PO TID as needed for spasm 02/14/2013 No Stop Date Active hydrocodone 10 mg-acetaminophen 325 mg tablet RxNorm: 533667 2 1-2 Tablet(s) PO QID as needed for severe pain 02/14/2013 No Stop Date Active Norvasc 10 mg tablet RxNorm: 951610 1 Tablet(s) PO QD 02/10/201302/09 Inactive Celebrex 200 mg capsule RxNorm: 553716 1 Capsule(s) PO QD 01/27/2013 01/26/2013 Inactive Premarin 1.25 mg tablet RxNorm: 535085 1-2 Tablet(s) PO QD 01/28/20 13 06/25/2013 Inactive alprazolam 0.5 mg tablet RxNorm: 297975 1 Tablet(s) PO BID 01/28/20 13 02/25/2013 Inactive prn amlodipine 5 mg tablet RxNorm: 137450 1 Tablet(s) PO QD 01/27/2013 Inactive Celebrex 200 mg capsule RxNorm: 993580 1 Capsule(s) PO QD 01/27/2013 02/27/2013 Inactive gabapentin 600 mg tablet RxNorm: 725723 1 Tablet(s) PO QHS 01/16/20 13 07/22/2013 Inactive Soma 350 mg tablet RxNorm: 428261 1 Tablet(s) PO TID as needed for spasm 01/15/2013 No Stop Date Active hydrocodone 10 mg-acetaminophen 325 mg tablet RxNorm: 348187 2 1-2 Tablet(s) PO QID as needed for severe pain 01/15/2013 No Stop Date Active Soma 350 mg tablet RxNorm: 086563 1 Tablet(s) PO TID as needed for spasm 01/13/2013 No Stop Date Active alprazolam 0.5 mg tablet RxNorm: 139217 1 Tablet(s) PO BID 12/31/19 13 01/26/2013 Inactive prn diclofenac sodium 75 mg tablet,delayed release RxNorm: 19026 8 1 Tablet(s) PO BID for pain 12/09/2012 01/07/2013 Inactive gabapentin 600 mg tablet RxNorm: 034678 1 Tablet(s) PO QHS 12/10/19 13 01/07/2013 Inactive hydrocodone 10 mg-acetaminophen 325 mg tablet RxNorm: 001012 2 1-2 Tablet(s) PO QID as needed for severe pain 12/02/2012 No Stop Date Active Levaquin 750 mg tablet RxNorm: 097098 1 Tablet(s) PO QD 11/21/2012 Inactive Singulair 10 mg tablet RxNorm: 579822 1 Tablet(s) PO QD 11/11/2012 Inactive clonidine 0.2 mg tablet RxNorm: 032214 1 Tablet(s) PO TID 11/11/2012 04/15/2013 Inactive alprazolam 0.5 mg tablet RxNorm: 554073 1 Tablet(s) PO BID 11/12/19 13 12/10/2012 Inactive prn Klor-Con 8 mEq tablet,extended release RxNorm: 236571 1 Tablet( s) PO BID 11/11/2012 03/04/2013 Inactive hydrocodone 10 mg-acetaminophen 325 mg tablet RxNorm: 196975 2 1-2 Tablet(s) PO QID as needed for severe pain 11/06/2012 No Stop Date Active alprazolam 0.5 mg tablet RxNorm: 655729 1 Tablet(s) PO BID 10/15/19 13 11/10/2012 Inactive prn hydrocodone-acetaminophen 10 mg-325 mg tablet RxNorm: 523538 2 1-2 Tablet(s) PO QID as needed for severe pain 10/10/2012 10/09/2012 Inactive allopurinol 300 mg tablet RxNorm: 874325 1 Tablet(s) PO QD 09/20/19 13 12/18/2012 Inactive alprazolam 0.5 mg tablet RxNorm: 886497 1 Tablet(s) PO BID 09/17/19 13 10/14/2012 Inactive prn hydrocodone-acetaminophen 10 mg-325 mg tablet RxNorm: 684883 2 1-2 Tablet(s) PO QID as needed for severe pain 08/22/2012 08/21/2012 Inactive Norvasc 10 mg tablet RxNorm: 504952 1 Tablet(s) PO QD 08/12/201201/10 Inactive Premarin 1.25 mg tablet RxNorm: 542513 1-2 Tablet(s) PO QD 07/30/20 12 12/26/2012 Inactive alprazolam 0.5 mg tablet RxNorm: 787044 1 Tablet(s) PO BID 07/29/20 12 08/27/2012 Inactive prn Klor-Con 8 mEq tablet,extended release RxNorm: 431837 1 Tablet( s) PO BID 07/29/2012 11/10/2012 Inactive hydrocodone-acetaminophen 10 mg-325 mg tablet RxNorm: 427845 2 1-2 Tablet(s) PO QID as needed for severe pain 07/29/2012 No Stop Date Active Premarin 1.25 mg tablet RxNorm: 586691 1-2 Tablet(s) PO QD 07/29/20 12 07/29/2012 Inactive clonidine 0.2 mg tablet RxNorm: 704183 1 Tablet(s) PO TID 07/29/2012 10/28/2012 Inactive ketorolac 10 mg tablet RxNorm: 404330 1 Tablet(s) PO QID prn he adache 07/18/2012 No Stop Date Active hydrocodone-acetaminophen 10 mg-325 mg tablet RxNorm: 033298 2 1-2 Tablet(s) PO QID as needed for severe pain 07/03/2012 No Stop Date Active amlodipine 5 mg tablet RxNorm: 116495 1 Tablet(s) PO QD 07/02/2012 Inactive allopurinol 300 mg tablet RxNorm: 498663 1 Tablet(s) PO QD 07/02/2009/19/2012 Inactive Celebrex 200 mg capsule RxNorm: 930049 1 Capsule(s) PO QD for j oint pain 06/26/2012 10/23/2012 Inactive diclofenac sodium 75 mg tablet,delayed release RxNorm: 65487 8 1 Tablet(s) PO BID for pain 06/19/2012 09/16/2012 Inactive hydrocodone-acetaminophen 10 mg-325 mg tablet RxNorm: 886405 2 1-2 Tablet(s) PO QID as needed for severe pain 06/10/2012 No Stop Date Active alprazolam 0.5 mg tablet RxNorm: 528533 1 Tablet(s) PO BID 06/03/20 12 07/02/2012 Inactive prn ketorolac 10 mg tablet RxNorm: 555467 1 Tablet(s) PO Q8H 05/27/2012 0 01/21/2019 Inactive as needed for headache hydrocodone-acetaminophen 10 mg-325 mg tablet RxNorm: 558235 2 1-2 Tablet(s) PO QID as needed for severe pain 05/15/2012 No Stop Date Active allopurinol 300 mg tablet RxNorm: 425120 1 Tablet(s) PO QD 05/14/20 12 06/12/2012 Inactive allopurinol 300 mg tablet RxNorm: 247493 1 Tablet(s) PO QD 05/14/20 12 05/13/2012 Inactive amlodipine 5 mg tablet RxNorm: 496878 1 Tablet(s) PO QD 05/01/2012 Inactive amlodipine 5 mg Tab RxNorm: 465051 1 Tablet(s) PO QD 05/01/201204/30 Inactive Celebrex 200 mg capsule RxNorm: 511896 1 Capsule(s) PO QD for j oint pain 05/01/2012 06/25/2012 Inactive Singulair 10 mg tablet RxNorm: 431014 1 Tablet(s) PO QD 05/01/2012 Inactive alprazolam 0.5 mg tablet RxNorm: 803928 1 Tablet(s) PO BID 05/01/2005/30/2012 Inactive prn Celebrex 200 mg Cap RxNorm: 080860 1 Capsule(s) PO QD for joint radu n 05/01/2012 04/30/2012 Inactive hydrocodone-acetaminophen 10 mg-325 mg tablet RxNorm: 567560 2 1-2 Tablet(s) PO QID as needed for severe pain 04/19/2012 No Stop Date Active Lasix 40 mg tablet RxNorm: 143138 1 Tablet(s) PO QAM s hould take potassium supplementation with this medication 04/05/2012 06/03/2012 Inactive alprazolam 0.5 mg Tab RxNorm: 120585 1 Tablet(s) PO BID 04/05/2012 Inactive prn hydrocodone-acetaminophen 10 mg-325 mg Tab RxNorm: 5218669 1-2 Tablet(s) PO QID as needed for severe pain 03/25/2012 03/24/2012 Inactive clonidine 0.2 mg Tab RxNorm: 847389 1 Tablet(s) PO TID 03/08/2012 Inactive alprazolam 0.5 mg Tab RxNorm: 614002 1 Tablet(s) PO BID 03/08/2012 Inactive prn Soma 350 mg tablet RxNorm: 219395 1 Tablet(s) PO TID for spasm 02/0903/18/2012 Inactive clonidine 0.2 mg tablet RxNorm: 632412 1 Tablet(s) PO TID 03/08/2012 07/28/2012 Inactive Celebrex 200 mg Cap RxNorm: 742819 1 Capsule(s) PO QD for joint radu n 03/01/2012 04/29/2012 Inactive amlodipine 5 mg Tab RxNorm: 855199 1 Tablet(s) PO QD 02/26/201202/24 Inactive amlodipine 5 mg Tab RxNorm: 669656 1 Tablet(s) PO QD 02/26/201204/25 Inactive Bactroban 2 % Ointment RxNorm: 601955 Application TOP QID to sores 02/23/2012 No Stop Date Active amlodipine 2.5 mg tablet RxNorm: 330349 1 Tablet(s) PO QHS 02/20/20 12 02/25/2012 Inactive doxycycline hyclate 100 mg Cap RxNorm: 5257849 1 Capsule(s) PO BID 02/20/2012 02/29/2012 Inactive hydrocodone-acetaminophen 10 mg-325 mg Tab RxNorm: 2095924 1-2 T ablet(s) PO QID 02/08/2012 No Stop Date Active alprazolam 0.5 mg Tab RxNorm: 939739 1 Tablet(s) PO BID 02/08/2012 Inactive prn Singulair 10 mg Tab RxNorm: 493744 1 Tablet(s) PO QD 02/08/201204/30 Inactive Soma 350 mg Tab RxNorm: 866346 1 Tablet(s) PO TID for spasm 012 03/07/2012 Inactive Soma 350 mg Tab RxNorm: 155143 1 Tablet(s) PO TID for spasm 012 02/05/2012 Inactive diclofenac sodium 75 mg tablet,delayed release RxNorm: 35601 8 1 Tablet(s) PO BID for pain 02/01/2012 03/18/2012 Inactive Celebrex 200 mg Cap RxNorm: 421414 1 Capsule(s) PO QD for joint radu n 01/30/2012 02/28/2012 Inactive Lasix 40 mg Tab RxNorm: 733188 1 Tablet(s) PO QAM 01/24/2012 03/18/20 12 Inactive potassium chloride ER 20 mEq tablet,extended release(part/cr yst) RxNorm: 229442 2 Tablet(s) PO BID 01/24/2012 02/22/2012 Inactive alprazolam 0.5 mg Tab RxNorm: 771850 1 Tablet(s) PO BID 01/11/2012 Inactive prn hydrocodone-acetaminophen 10 mg-325 mg Tab RxNorm: 8991781 1-2 T ablet(s) PO QID 01/11/2012 No Stop Date Active Ambien 10 mg Tab RxNorm: 601076 1 Tablet(s) PO QHS 01/11/2012 012 Inactive Klor-Con 8 mEq Tab RxNorm: 483762 1 Tablet(s) PO BID 01/11/201201/22 Inactive diclofenac sodium 75 mg Tab, Delayed Release RxNorm: 603424 1 Tablet(s) PO BID for pain 01/10/2012 01/31/2012 Inactive Ambien 10 mg Tab RxNorm: 413427 1 Tablet(s) PO QHS 12/11/2011 012 Inactive alprazolam 0.5 mg Tab RxNorm: 327944 1 Tablet(s) PO BID 12/11/2011 Inactive prn hydrocodone 10 mg-acetaminophen 325 mg tablet RxNorm: 333517 1-2 Tablet(s) PO TID 11/28/2011 No Stop Date Active as needed for pa in - Previous quantity #240, will start dosing for #180 in April 2011 per Doctor Td. Ambien 10 mg Tab RxNorm: 868190 1 Tablet(s) PO QHS 11/09/2011 012 Inactive alprazolam 0.5 mg Tab RxNorm: 124483 1 Tablet(s) PO BID 11/09/2011 Inactive prn hydrocodone-acetaminophen 10 mg-325 mg Tab RxNorm: 0578735 1-2 T ablet(s) PO TID 11/06/2011 No Stop Date Active as needed for pain - Previous quantity #240, will start dosing for #180 in April 2011 per Doctor Td. Singulair 10 mg Tab RxNorm: 176039 1 Tablet(s) PO QD 10/13/201110/12 Inactive Singulair 10 mg Tab RxNorm: 535597 1 Tablet(s) PO QD 10/13/201102/06 Inactive hydrocodone-acetaminophen 10 mg-325 mg Tab RxNorm: 2508694 1-2 T ablet(s) PO TID 10/10/2011 10/09/2011 Inactive as needed for pain - Previous quantity #240, will start dosing for #180 in April 2011 per Doctor Td. hydrocodone-acetaminophen 10 mg-325 mg Tab RxNorm: 7814176 1-2 T ablet(s) PO TID 10/09/2011 No Stop Date Active as needed for pain - Previous quantity #240, will start dosing for #180 in April 2011 per Doctor Td. Klor-Con 8 mEq Tab RxNorm: 419388 1 Tablet(s) PO BID 10/02/201101/09 Inactive triamterene 75 mg-hydrochlorothiazide 50 mg tablet RxNorm: 3 67729 1 Tablet(s) PO QD 09/14/2011 03/06/2013 Inactive Ambien 10 mg Tab RxNorm: 679864 1 Tablet(s) PO QHS 09/14/2011 012 Inactive hydrocodone-acetaminophen 10 mg-325 mg Tab RxNorm: 0896496 1-2 T ablet(s) PO TID 09/14/2011 No Stop Date Active as needed for pain - Previous quantity #240, will start dosing for #180 in April 2011 per Doctor Td. alprazolam 0.5 mg Tab RxNorm: 248585 1 Tablet(s) PO BID 09/14/2011 Inactive prn Zithromax 500 mg Tab RxNorm: 495672 1 Tablet(s) PO QD 09/13/201109/10 Inactive prednisone 20 mg Tab RxNorm: 762803 1 Tablet(s) PO BID 08/31/2011 Inactive Ambien 10 mg Tab RxNorm: 812434 1 Tablet(s) PO QHS 08/17/2011 011 Inactive hydrocodone-acetaminophen 10 mg-325 mg Tab RxNorm: 6215593 1-2 T ablet(s) PO TID 08/17/2011 No Stop Date Active as needed for pain - Previous quantity #240, will start dosing for #180 in April 2011 per Doctor Td. clonidine 0.2 mg Tab RxNorm: 403018 1 Tablet(s) PO TID 08/17/201112/2011 Inactive Ambien 10 mg Tab RxNorm: 934496 1 Tablet(s) PO QHS 08/17/2011 019 Inactive alprazolam 0.5 mg Tab RxNorm: 177630 1 Tablet(s) PO BID 08/17/2011 Inactive prn hydrocodone-acetaminophen 10 mg-325 mg Tab RxNorm: 4488760 1-2 T ablet(s) PO TID 08/17/2011 08/16/2011 Inactive as needed for pain - Previous quantity #240, will start dosing for #180 in April 2011 per Doctor Td. Singulair 10 mg Tab RxNorm: 364246 1 Tablet(s) PO QD 08/17/201108/16 Inactive Klor-Con 8 mEq Tab RxNorm: 270349 1 Tablet(s) PO QD 08/17/20112011 Inactive alprazolam 0.5 mg Tab RxNorm: 955438 1 Tablet(s) PO BID 07/20/2011 Inactive prn Ambien 10 mg Tab RxNorm: 331589 1 Tablet(s) PO QHS 07/20/2011 012 Inactive Singulair 10 mg Tab RxNorm: 357629 1 Tablet(s) PO QD 07/20/201107/19 Inactive Premarin 1.25 mg tablet RxNorm: 396570 2 Tablet(s) PO QD 07/20/2011 0 01/21/2019 Inactive Premarin 1.25 mg tablet RxNorm: 211778 1-2 Tablet(s) PO QD 07/20/2012/16/2011 Inactive Premarin 1.25 mg Tab RxNorm: 070719 1-2 Tablet(s) PO QD 07/06/2011 Inactive alprazolam 0.5 mg Tab RxNorm: 899608 1 Tablet(s) PO BID 06/22/2011 Inactive prn alprazolam 0.5 mg Tab RxNorm: 438624 1 Tablet(s) PO BID 06/22/2011 Inactive prn Premarin 1.25 mg Tab RxNorm: 359997 1 Tablet(s) PO QD m ay do 90 day fill if desired 06/22/2011 07/05/2011 Inactive hydrocodone-acetaminophen 10 mg-325 mg Tab RxNorm: 0211840 1-2 T ablet(s) PO TID 06/22/2011 No Stop Date Active as needed for pain - Previous quantity #240, will start dosing for #180 in April 2011 per Doctor Td. clonidine 0.2 mg Tab RxNorm: 631547 1 Tablet(s) PO TID 05/25/201103/2011 Inactive triamterene-hydrochlorothiazide 75 mg-50 mg Tab RxNorm: 3108 18 1 Tablet(s) PO QD 05/25/2011 09/13/2011 Inactive alprazolam 0.5 mg Tab RxNorm: 864158 1 Tablet(s) PO BID 05/25/2011 Inactive prn hydrocodone-acetaminophen 10 mg-325 mg Tab RxNorm: 4400131 1-2 T ablet(s) PO TID 05/25/2011 No Stop Date Active as needed for pain - Previous quantity #240, will start dosing for #180 in April 2011 per Doctor Td. Robaxin-750 750 mg Tab RxNorm: 139279 2 Tablet(s) PO QHS 05/22/2011 1 Inactive prn spasm hydrocodone-acetaminophen 10 mg-325 mg Tab RxNorm: 5807750 1-2 T ablet(s) PO TID 04/26/2011 No Stop Date Active as needed for pain - Previous quantity #240, will start dosing for #180 in April 2011 per Doctor Td. alprazolam 0.5 mg Tab RxNorm: 248604 1 Tablet(s) PO BID 04/25/2011 Inactive prn Klor-Con 8 mEq Tab RxNorm: 111923 1 Tablet(s) PO QD 03/30/20112010 Inactive Klor-Con 8 mEq Tab RxNorm: 359879 1 Tablet(s) PO QD 03/29/20112010 Inactive hydrocodone-acetaminophen 10 mg-325 mg Tab RxNorm: 1742475 1-2 T ablet(s) PO TID 03/20/2011 04/25/2011 Inactive as needed for pain - Previous quantity #240, will start dosing for #180 in April 2011 per Doctor Td. alprazolam 0.5 mg Tab RxNorm: 543457 1 Tablet(s) PO BID prn 011 03/30/2011 Inactive Ambien 10 mg Tab RxNorm: 474910 1 Tablet(s) PO QHS 03/01/2011 011 Inactive cyclobenzaprine 10 mg Tab RxNorm: 838251 1 Tablet(s) PO TID 011 03/18/2012 Inactive cyclobenzaprine 10 mg Tab RxNorm: 013716 1 Tablet(s) PO TID 011 01/08/2011 Inactive cyclobenzaprine 10 mg Tab RxNorm: 046180 1 Tablet(s) PO TID 011 12/20/2010 Inactive terbinafine 250 mg Tab RxNorm: 431585 1 Tablet(s) PO QD 12/12/2010 Inactive triamterene-hydrochlorothiazide 75 mg-50 mg Tab RxNorm: 3108 18 1 Tablet(s) PO QD 12/07/2010 06/04/2011 Inactive Klor-Con 8 8 mEq Tab RxNorm: 190768 1 Tablet(s) PO QD 12/07/201001/08 Inactive Premarin 1.25 mg Tab RxNorm: 172502 2 Tablet(s) PO QD 12/07/201001/08 Inactive clonidine 0.2 mg Tab RxNorm: 345206 1 Tablet(s) PO TID 12/07/2010 Inactive hydrocodone-acetaminophen 7.5 mg-650 mg Tab RxNorm: 750377 1 Ta blet(s) PO Q4H 12/05/2010 01/21/2019 Inactive hydrocodone-acetaminophen 7.5 mg-650 mg Tab RxNorm: 759882 1 Ta blet(s) PO Q4H 10/26/2010 11/14/2010 Inactive hydrocodone-acetaminophen 7.5 mg-650 mg Tab RxNorm: 993417 1 Ta blet(s) PO Q4H 10/13/2010 10/25/2010 Inactive hydrocodone-acetaminophen 7.5 mg-650 mg Tab RxNorm: 129227 1 Ta blet(s) PO Q4H 09/15/2010 09/12/2010 Inactive alprazolam 0.5 mg Tab RxNorm: 103336 1 Tablet(s) PO BID prn 011 09/12/2010 Inactive terbinafine 250 mg Tab RxNorm: 856617 1 Tablet(s) PO QD 09/05/2010 Inactive hydrocodone-acetaminophen 7.5 mg-650 mg Tab RxNorm: 595645 1 Ta blet(s) PO Q4H 08/29/2010 09/17/2010 Inactive alprazolam 0.5 mg Tab RxNorm: 275884 1 Tablet(s) PO BID prn 010 09/27/2010 Inactive alprazolam 0.5 mg Tab RxNorm: 508702 1 Tablet(s) PO BID prn 010 09/06/2010 Inactive Klor-Con 8 mEq Tab RxNorm: 319107 1 Tablet(s) PO QD 08/08/20102010 Inactive hydrocodone-acetaminophen 7.5 mg-650 mg Tab RxNorm: 246404 1 Ta blet(s) PO Q4H 08/08/2010 08/27/2010 Inactive Ambien 10 mg Tab RxNorm: 692117 1 Tablet(s) PO QHS 08/08/2010 Inactive clonidine 0.2 mg Tab RxNorm: 683394 1 Tablet(s) PO TID 08/08/2010 Inactive Premarin 1.25 mg Tab RxNorm: 573031 2 Tablet(s) PO QD 08/08/201009/12 Inactive Ambien 10 mg Tab RxNorm: 927276 1 Tablet(s) PO QHS 07/18/2010 Inactive alprazolam 0.5 mg Tab RxNorm: 240628 1 Tablet(s) PO BID prn 010 08/07/2010 Inactive hydrocodone-acetaminophen 7.5 mg-650 mg Tab RxNorm: 298900 1 Ta blet(s) PO Q4H 07/12/2010 07/31/2010 Inactive clonidine 0.2 mg Tab RxNorm: 355570 1 Tablet(s) PO TID 06/20/2010 Inactive terbinafine 250 mg Tab RxNorm: 678673 1 Tablet(s) PO QD 05/24/2010 Inactive Clonidine 0.2 mg Tab RxNorm: 950885 1 Tablet(s) PO TID 05/24/201006/2010 Inactive Ambien 10 mg Tab RxNorm: 593261 1 Tablet(s) PO QHS 05/24/2010 010 Inactive alprazolam 0.5 mg Tab RxNorm: 133574 1 Tablet(s) PO BID 05/24/2010 Inactive Klor-Con 8 mEq Tab RxNorm: 927601 1 Tablet(s) PO QD 05/24/20102009 Inactive alprazolam 0.5 mg Tab RxNorm: 532891 2 Tablet(s) PO QD prn 05/24/2007/17/2010 Inactive triamterene-hydrochlorothiazide 75 mg-50 mg Tab RxNorm: 3108 18 1 Tablet(s) PO QD 05/24/2010 11/19/2010 Inactive Ambien 10 mg Tab RxNorm: 576699 1 Tablet(s) PO QHS 05/23/2010 010 Inactive Alprazolam 0.5 mg Tab RxNorm: 166976 2 Tablet(s) PO QD prn 05/23/2005/23/2010 Inactive Premarin 1.25 mg Tab RxNorm: 506596 2 Tablet(s) PO QD 05/19/201007/12 Inactive Hydrocodone-Acetaminophen 7.5 mg-650 mg Tab RxNorm: 711044 1 Ta blet(s) PO Q4H 05/19/2010 03/20/2011 Inactive Prednisone 20 mg Tab RxNorm: 413141 1 Tablet(s) PO BID 05/17/2010 Inactive Prednisone 20 mg Tab RxNorm: 475336 1 Tablet(s) PO BID 05/06/201001/2010 Inactive Premarin 1.25 mg Tab RxNorm: 700526 Tablet(s) PO 2 M-W-F, and 1 Us-Ug-Bkn-Sun 05/05/2010 08/02/2010 Inactive Premarin 1.25 mg Tab RxNorm: 559778 Tablet(s) PO 2 M-W-F, and Fc-Ig-Gxj-Sun 05/04/2010 05/04/2010 Inactive Premarin 1.25 mg Tab RxNorm: 688416 Tablet(s) PO 2 M-W-F, and 1 Db-Dp-Jvi-Sun 05/04/2010 05/03/2010 Inactive Prednisone 20 mg Tab RxNorm: 664839 1 Tablet(s) PO BID 04/27/2010 Inactive Alprazolam 0.5 mg Tab RxNorm: 841943 2 Tablet(s) PO QD prn 04/26/20 10 05/22/2010 Inactive Clindamycin 300 mg Cap RxNorm: 722695 2 Capsule(s) PO TID 04/05/2010 04/18/2010 Inactive Terbinafine 250 mg Tab RxNorm: 815288 1 Tablet(s) PO QD 04/04/2010 Inactive Hydrocodone-Acetaminophen 7.5 mg-650 mg Tab RxNorm: 286723 1 Ta blet(s) PO Q4H 03/30/2010 04/18/2010 Inactive Avelox 400 mg Tab RxNorm: 052688 1 Tablet(s) PO QD 03/09/2010 010 Inactive Hydrocodone-Acetaminophen 7.5 mg-650 mg Tab RxNorm: 660286 1 Ta blet(s) PO Q4H 03/08/2010 03/27/2010 Inactive Alprazolam 0.5 mg Tab RxNorm: 614559 2 Tablet(s) PO QD prn 03/08/20 10 04/25/2010 Inactive Klor-Con 8 mEq Tab RxNorm: 128519 1 Tablet(s) PO QD when takes lasi x 03/07/2010 09/29/2019 Inactive Premarin 1.25 mg Tab RxNorm: 931760 1 Tablet(s) PO QD 03/03/201003/11 Inactive Alprazolam 0.5 mg Tab RxNorm: 532061 1 Tablet(s) PO BID PRN 010 No Stop Date Active triamterene-hydrochlorothiazide 75 mg-50 mg Tab RxNorm: 3108 18 1 Tablet(s) PO QD 02/09/2010 02/03/2011 Inactive Hydrocodone-Acetaminophen 10 mg-750 mg Tab RxNorm: 444690 1 Tablet(s) PO Q4H PRN 02/09/2010 03/20/2011 Inactive Clonidine 0.2 mg Tab RxNorm: 391252 1 Tablet(s) PO TID 01/13/201009/2009 Inactive Alprazolam 0.5 mg Tab RxNorm: 608101 1 Tablet(s) PO BID PRN 010 01/12/2010 Inactive Hydrocodone-Acetaminophen 10 mg-750 mg Tab RxNorm: 726816 1 Tablet(s) PO Q4H PRN 01/13/2010 01/12/2010 Inactive ANGELIQ 1 mg-0.5 mg Tab RxNorm: 4104939 1 Tablet(s) PO QD 12/27/2009 01/23/2010 Inactive Lasix 40 mg Tab RxNorm: 977256 1 Tablet(s) PO QAM 12/14/2009 06/11/20 10 Inactive Vitamin B12 1000mcg Tablet RxNorm: 1 Tablet(s) PO QD No Start Date Active cyclobenzaprine 10 mg tablet RxNorm: 677229 1 Tablet(s) PO TID as needed DO NOT USE WITH BACLOFEN No Start Date Active Vitamin D 5,000 unit Tab RxNorm: 1 Tablet(s) PO QD No Start Date Active vitamin E (dl, acetate) 400 unit Cap RxNorm: 544118 1 Capsule(s ) PO QD No Start Date Active Benadryl 25 mg Cap RxNorm: 6706825 Capsule(s) PO PRN No Start Date Inactive amitriptyline 100 mg tablet RxNorm: 321800 1 Tablet(s) PO QHS No St art Date 11/27/2016 Inactive Zithromax Z-Dustin 250 mg tablet RxNorm: 214899 Tablet(s) PO as di rected No Start Date 07/22/2013 Inactive Klor-Con 8 mEq tablet,extended release RxNorm: 344344 1 Tablet( s) PO BID No Start Date 07/28/2012 Inactive scopolamine 1.5 mg 72 hr Transderm Patch RxNorm: 306930 Application TD Q72H for motion sickness No Start Date 05/25/2013 Inactive Klonopin 1 mg tablet RxNorm: 572199 1-2 Tablet(s) PO QHS as nee ded for sleep No Start Date 06/20/2015 Inactive Klor-Con M20 mEq tablet,extended release RxNorm: 350461 2 Tablet(s) PO BID to use with lasix No Start Date 11/11/2013 Inactive Bystolic 5 mg tablet RxNorm: 562228 1 Tablet(s) PO QD No Start Date 1 Inactive Bystolic 10 mg tablet RxNorm: 610722 1 Tablet(s) PO BID No Start Da te 07/06/2015 Inactive Premarin 1.25 mg Tab RxNorm: 392115 Tablet(s) PO 2 -W-, and 1 Ma-Ch-Evf-Sun No Start Date 05/03/2010 Inactive baclofen 20 mg tablet RxNorm: 499794 1 Tablet(s) PO TID as needed for muscle spasm No Start Date 07/22/2015 Inactive hydrocodone-acetaminophen 7.5 mg-650 mg Tab RxNorm: 880445 1 Tablet(s) PO Q4H as needed for pain No Start Date 03/20/2011 Inactive albuterol sulfate 1.25 mg/3 mL Neb Solution RxNorm: 594228 1 Unit Dose INH Q4H 2boxes No Start Date 09/06/2015 Inactive Butrans 20 mcg/hour Transderm Patch RxNorm: 988867 1 TD WEEKLY apply to skin weekly after removing previous. No Start Date 07/22/2013 Inactive Medrol (Dustin) 4 mg tablets in a dose pack RxNorm: 593028 Tablet(s) PO As Directed No Start Date 07/30/2016 Inactive hydrocodone-acetaminophen 10 mg-325 mg Tab RxNorm: 4437606 1-2 Tablet(s) PO TID as needed for pain No Start Date 03/19/2011 Inactive Klonopin 1 mg tablet RxNorm: 254504 1 Tablet(s) PO QHS No Start Date 02/28/2016 Inactive honey topical RxNorm: topical No Start Date 06/16/2018 Inactive Clonidine 0.2 mg Tab RxNorm: 400485 1 Tablet(s) PO TID No Start Date 01/12/2010 Inactive ketorolac 10 mg tablet RxNorm: 816912 1 Tablet(s) PO Q8H No Start D ate 03/18/2012 Inactive as needed for headache Singulair 10 mg Tab RxNorm: 479261 1 Tablet(s) PO QD No Start Date Inactive Premarin 1.25 mg Tab RxNorm: 194245 1 Tablet(s) PO QD No Start Date 1 Inactive Flonase 50 mcg/Actuation Nasal Marion RxNorm: 4229774 1 Marion CECELIA AL BID No Start Date 03/18/2012 Inactive Terbinafine 250 mg Tab RxNorm: 150571 1 Tablet(s) PO QD No Start Da te 04/03/2010 Inactive Fexofenadine 180 mg Tab RxNorm: 8683051 1 Tablet(s) PO QD No Start Date 09/06/2015 Inactive baclofen 20 mg tablet RxNorm: 186548 1 Tablet(s) PO TID as needed N o Start Date 05/25/2014 Inactive Diovan 160 mg Tab RxNorm: 791395 1 Tablet(s) PO QD No Start Date 09/12 Inactive mupirocin 2 % topical ointment RxNorm: 169005 1 Application TOP QID No Start Date 04/25/2016 Inactive ZOFRAN ODT 4 mg Tab, Rapid Dissolve RxNorm: 033686 1 Tablet(s) PO Q4H No Start Date 03/18/2012 Inactive as needed for nausea and vomiting Alprazolam 0.5 mg Tab RxNorm: 966135 1 Tablet(s) PO BID PRN No Star t Date 01/12/2010 Inactive cyclobenzaprine 10 mg tablet RxNorm: 556622 1 Tablet(s) PO TID as needed for muscle spasm No Start Date 10/08/2017 Inactive Albuterol 0.083% Aerosol Solution RxNorm: 1 Appl ication INH Q4H Use one ampule every 4 hrs with nebulizer as needed for shortness of breath. No Start Date 10/09/2010 Inactive lorazepam 1 mg tablet RxNorm: 159105 1 1/2 Tablet(s) PO QHS No Star t Date 02/02/2016 Inactive Melatonin 3 mg Tab RxNorm: 329433 Tablet(s) PO PRN No Start Date 07/11 Inactive Medrol (Dustin) 4 mg Tabs in a Dose Pack RxNorm: 223565 Tablet(s) PO N o Start Date 11/28/2010 Inactive lorazepam 1 mg tablet RxNorm: 792038 1 Tablet(s) PO QHS as need ed for sleep No Start Date 01/30/2016 Inactive hydrocodone-acetaminophen 10 mg-325 mg Tab RxNorm: 6584078 1-2 Tablet(s) PO QID as needed for severe pain No Start Date 03/24/2012 Inactive celecoxib 200 mg capsule RxNorm: 207573 1 Capsule(s) PO BID No Star t Date 06/26/2019 Inactive amlodipine 5 mg-benazepril 20 mg capsule RxNorm: 441745 1 Capsu le(s) PO QD No Start Date 04/10/2017 Inactive Bystolic 20 mg tablet RxNorm: 412958 1/2 Tablet(s) PO QAM No Start Date 01/23/2016 Inactive Bystolic 20 mg tablet RxNorm: 459791 1 Tablet(s) PO QAM No Start Da te 04/25/2016 Inactive Ambien 10 mg Tab RxNorm: 502770 1 Tablet(s) PO QHS No Start Date 05/11 Inactive Klor-Con 8 mEq Tab RxNorm: 477866 1 Tablet(s) PO QD when takes lasix No Start Date 03/06/2010 Inactive aspirin 81 mg tablet RxNorm: 281041 1 Tablet(s) PO QD No Start Date 0 01/29/2018 Inactive hydrocodone-acetaminophen 10 mg-325 mg Tab RxNorm: 9013170 1-2 T ablet(s) PO QID No Start Date 01/10/2012 Inactive Bystolic 10 mg tablet RxNorm: 698271 1 Tablet(s) PO QAM take one daily in the morning. No Start Date 05/28/2013 Inactive nystatin 100,000 unit/mL Oral Susp RxNorm: 441627 5 Milliliter( s) PO QID No Start Date 03/18/2012 Inactive swish and spit scopolamine 1.5 mg 72 hr Transderm Patch RxNorm: 812884 1 Unit Dose TD Q72H for motion sickness No Start Date 12/23/2013 Inactive Hydrocodone-Acetaminophen 10 mg-750 mg Tab RxNorm: 781090 1 Tablet(s) PO Q4H PRN No Start Date 01/12/2010 Inactive Soma 350 mg tablet RxNorm: 357658 1 Tablet(s) PO TID as needed for spasm No Start Date 01/12/2013 Inactive baclofen 10 mg tablet RxNorm: 170988 1 Tablet(s) PO TID as needed for muscle spasm No Start Date 09/18/2019 Inactive Soma 350 mg Tab RxNorm: 904348 1 Tablet(s) PO TID for spasm No Star t Date 01/31/2012 Inactive Co Q-10 400 mg capsule RxNorm: 313685 1 Capsule(s) PO QD No Start D ate 01/21/2019 Inactive nystatin 100,000 unit/gram topical cream RxNorm: 557834 Applica tion TOP BID No Start Date 03/22/2015 Inactive Exforge 5 mg-160 mg Tab RxNorm: 270877 1 Tablet(s) PO QD No Start D ate 10/09/2010 Inactive Hydrocodone-Acetaminophen 7.5 mg-650 mg Tab RxNorm: 500748 1 Ta blet(s) PO Q4H No Start Date 03/07/2010 Inactive Robaxin-750 750 mg Tab RxNorm: 243622 1-2 Tablet(s) PO TID prn spasm No Start Date 05/21/2011 Inactive amlodipine 5 mg tablet RxNorm: 577830 1 Tablet(s) PO QHS No Start D ate 09/29/2015 Inactive oxycodone-acetaminophen 10 mg-325 mg tablet RxNorm: 0213428 1-2 Tablet(s) PO Q6H No Start Date 06/16/2018 Inactive Triamterene-Hydrochlorothiazide 75 mg-50 mg Tab RxNorm: 3108 18 1 Tablet(s) PO QD No Start Date 02/08/2010 Inactive Alprazolam 0.5 mg Tab RxNorm: 820838 2 Tablet(s) PO QD prn No Start Date 03/07/2010 Inactive Bystolic 20 mg tablet RxNorm: 037289 1 Tablet(s) PO QAM No Start Da te 08/17/2015 Inactive ketorolac 10 mg tablet RxNorm: 921945 1 Tablet(s) PO QID prn he adache No Start Date 07/17/2012 Inactive acyclovir 800 mg Tab RxNorm: 270882 1 Tablet(s) PO BID No Start Date 03/18/2012 Inactive duloxetine 60 mg capsule,delayed release RxNorm: 072459 1 Capsu le(s) PO QD No Start Date 09/29/2015 Inactive Norvasc 5 mg tablet RxNorm: 229368 1 Tablet(s) PO QHS No Start Date 1 10/18/2014 Inactive promethazine 25 mg tablet RxNorm: 531178 1 Tablet(s) PO Q8H use sparingly No Start Date 07/22/2013 Inactive alprazolam 0.5 mg tablet RxNorm: 448063 3 Tablet(s) PO QHS No Start Date 06/06/2015 Inactive Lunesta 3 mg tablet RxNorm: 595218 1 Tablet(s) PO QHS No Start Date 0 09/20/2017 Inactive hydrocodone-acetaminophen 10 mg-325 mg Tab RxNorm: 4002714 1-2 Tablet(s) PO TID as needed for pain No Start Date 12/10/2011 Inactive Coricidin HBP Cough & Cold 4 mg-30 mg Tab RxNorm: 5877290 Tablet (s) PO PRN No Start Date 10/09/2010 Inactive Bactroban 2 % Ointment RxNorm: 175906 Application TOP QID to so res No Start Date 02/22/2012 Inactive Flonase 50 mcg/actuation Nasal [place] RxNorm: 232897 2 [place] QHS No Start Date 03/03/2014 Inactive Medication Administered No Medication Administered data Immunizations Vaccine Codes Date Status Tetanus, Diptheria, Pertussis CVX: 115 02/27/2014 Results Observation Observation Code Item Item Code Result Date S [facility] Location COMPREHENSIVE METABOLIC 82058 AST 15 U/L 2019 Unknown COMPREHENSIVE METABOLIC 16611 ALT 13 U/L 2019 Unknown COMPREHENSIVE METABOLIC 69406 BUN 12 mg/dL 2019 Unknown COMPREHENSIVE METABOLIC 39610 ALBUMIN 3.9 g/dL 2019 Unknown COMPREHENSIVE METABOLIC 95002 CHLORIDE 97 mmol/L 2019 Unknown COMPREHENSIVE METABOLIC 62242 Bili Total 0.4 mg/dL 09/29 Unknown COMPREHENSIVE METABOLIC 81894 ALK PHOS 130 U/L 2019 Unknown COMPREHENSIVE METABOLIC 94904 SODIUM 136 mmol/L 09/29 Unknown COMPREHENSIVE METABOLIC 62690 CREATININE 0.92 mg/dL 09/11 Unknown COMPREHENSIVE METABOLIC 92566 CALCIUM 9.1 mg/dL 2019 Unknown COMPREHENSIVE METABOLIC 24954 POTASSIUM 4.4 mmol/L 09/29 Unknown COMPREHENSIVE METABOLIC 43720 Total Protein 6.2 g/dL Unknown COMPREHENSIVE METABOLIC 18310 Glucose 391 mg/dL 2019 Unknown COMPREHENSIVE METABOLIC 57991 Bicarbonate 30 mmol/L 09/11 Unknown COMPREHENSIVE METABOLIC 27659 AGAP 9 mmol/L 2019 Unknown MEAN GLUC 4852316 Calc Mean Gluc 332 mg/dL 09/29/2019 Unkn own COMPLETE BLOOD COUNT [id number] WBC 7.0 10e9/L 09/29/19 Unknown COMPLETE BLOOD COUNT [id number] RBC 4.69 10e12/L 2019 Unknown COMPLETE BLOOD COUNT 7389653 HEMOGLOBIN 14.6 g/dL 09/29/19 Unknown COMPLETE BLOOD COUNT 1396429 HEMATOCRIT 45.2 % 09/29/19 Unknown COMPLETE BLOOD COUNT 0927793 MCV 96.4 fL 0 Unknown COMPLETE BLOOD COUNT 0166308 MCH 31.1 pg 0 Unknown COMPLETE BLOOD COUNT 7080202 MCHC 32.3 g/dL 0 Unknown COMPLETE BLOOD COUNT [id number] PLATELET COUNT 209 10e9/L Unknown COMPLETE BLOOD COUNT 2377057 Mean Plt Volume 9.8 fL Unknown COMPLETE BLOOD COUNT 7150946 Neut Auto 48.1 % 0 Unknown COMPLETE BLOOD COUNT [id number] Lymph Auto 36.5 % 09/29/19 Unknown COMPLETE BLOOD COUNT 1692238 [place] Auto 8.6 % 0 Unknown COMPLETE BLOOD COUNT 1785939 RDW 13.4 % 0 Unknown COMPLETE BLOOD COUNT 8590233 Eos Auto 6.5 % 0 Unknown COMPLETE BLOOD COUNT 2919259 Baso Auto 0.3 % 0 Unknown COMPLETE BLOOD COUNT 9499678 Neutrophil Abs 3.37 10e9/L Unknown COMPLETE BLOOD COUNT 9928672 Lymphocyte Abs 2.56 10e9/L Unknown COMPLETE BLOOD COUNT 4760842 Monocyte Abs 0.60 10e9/L 09/11 Unknown COMPLETE BLOOD COUNT [id number] Eosinophil Abs 0.46 10e9/L Unknown COMPLETE BLOOD COUNT 5759463 RDW-SD 45.9 fL 0 Unknown COMPLETE BLOOD COUNT [id number] Basophil Abs 0.02 10e9/L 09/11 Unknown LIPID GROUP 66720 Cholesterol 248 mg/dL 09/29/2019 Unkno wn LIPID GROUP 53323 Triglyceride 898 mg/dL 09/29/2019 Unkn own LIPID GROUP 46844 HDL CHOLESTEROL 41 mg/dL 09/29/2019 U nknown LIPID GROUP 11579 Chol/HDL Ratio 6.05 ratio 09/29/2019 U nknown LIPID GROUP 31013 NON-HDL Chol 207 mg/dL 09/29/2019 Unkn own LIPID GROUP 45388 LDL Cholesterol N/A Trig >400 020 Unknown GLYCOSYLATED HEMOGLOBIN TEST 32024 Hgb A1c 81941-6 13.2 % 0 09/29/2019 Unknown FREE T4 28080 T4 Free 0.75 ng/dL 09/29/2019 Unknown GFR CALC 0276204 GFR Afr Amr >60 mL/min 09/29/2019 Unknow n GFR CALC 4038211 GFR Non Afr Amr >60 mL/min 09/29/2019 Un known THYROID STIMULATING HORMONE 68389 TSH 4.245 uIU/mL 09/29/2019 Unknown COMPLETE BLOOD COUNT [id number] WBC 10.7 10e9/L 018 Unknown COMPLETE BLOOD COUNT [id number] RBC 4.59 10e12/L 2017 Unknown COMPLETE BLOOD COUNT 6867483 HEMOGLOBIN 14.8 g/dL 12/11/19 18 Unknown COMPLETE BLOOD COUNT 6295469 HEMATOCRIT 44.9 % 12/11/19 18 Unknown COMPLETE BLOOD COUNT 5883218 MCV 97.8 fL 8 Unknown COMPLETE BLOOD COUNT 5764171 MCH 32.2 pg 8 Unknown COMPLETE BLOOD COUNT 8978415 MCHC 33.0 g/dL 8 Unknown COMPLETE BLOOD COUNT 9090443 PLATELET COUNT 261 10e9/L 10/2017 Unknown COMPLETE BLOOD COUNT 9807330 Mean Plt Volume 9.5 fL 10/2017 Unknown COMPLETE BLOOD COUNT 4311104 Neut Auto 59.9 % 8 Unknown COMPLETE BLOOD COUNT 8438377 Lymph Auto 27.4 % 12/11/19 18 Unknown COMPLETE BLOOD COUNT 3152335 [place] Auto 8.2 % 8 Unknown COMPLETE BLOOD COUNT 8624198 Eos Auto 4.1 % 8 Unknown COMPLETE BLOOD COUNT 2107366 RDW 13.3 % 8 Unknown COMPLETE BLOOD COUNT 9629215 Baso Auto 0.4 % 8 Unknown COMPLETE BLOOD COUNT 2300579 Neutrophil Abs 6.41 10e9/L Unknown COMPLETE BLOOD COUNT 6465187 Lymphocyte Abs 2.93 10e9/L Unknown COMPLETE BLOOD COUNT 9596578 Monocyte Abs 0.88 10e9/L 10/2017 Unknown COMPLETE BLOOD COUNT 8583162 Eosinophil Abs 0.44 10e9/L Unknown COMPLETE BLOOD COUNT 6183947 Basophil Abs 0.04 10e9/L 10/2017 Unknown COMPLETE BLOOD COUNT [id number] RDW-SD 46.2 fL 8 Unknown THYROID STIMULATING HORMONE 55802 TSH 4.015 uIU/mL 12/10/2017 Unknown COMPREHENSIVE METABOLIC 76178 AST 25 U/L 2017 Unknown COMPREHENSIVE METABOLIC 03704 ALT 17 U/L 2017 Unknown COMPREHENSIVE METABOLIC 55557 BUN 19 mg/dL 2017 Unknown COMPREHENSIVE METABOLIC 46579 ALBUMIN 4.0 g/dL 2017 Unknown COMPREHENSIVE METABOLIC 64810 CHLORIDE 91 mmol/L 2017 Unknown COMPREHENSIVE METABOLIC 12072 Bili Total 0.5 mg/dL 12/10 Unknown COMPREHENSIVE METABOLIC 23845 ALK PHOS 75 U/L 2017 Unknown COMPREHENSIVE METABOLIC 05528 SODIUM 136 mmol/L 12/10 Unknown COMPREHENSIVE METABOLIC 82299 CREATININE 1.05 mg/dL 10/2017 Unknown COMPREHENSIVE METABOLIC 07495 CALCIUM 8.9 mg/dL 2017 Unknown COMPREHENSIVE METABOLIC 32848 POTASSIUM 3.4 mmol/L 12/10 Unknown COMPREHENSIVE METABOLIC 31783 Total Protein 6.5 g/dL Unknown COMPREHENSIVE METABOLIC 11968 Glucose 138 mg/dL 2017 Unknown COMPREHENSIVE METABOLIC 07637 Bicarbonate 35 mmol/L 10/2017 Unknown COMPREHENSIVE METABOLIC 60471 AGAP 10 mmol/L 2017 Unknown MEAN GLUC 1739078 Calc Mean Gluc 171 mg/dL 12/10/2017 Unkn own LIPID GROUP 07455 Cholesterol 204 mg/dL 12/10/2017 Unkno wn LIPID GROUP 38398 Triglyceride 411 mg/dL 12/10/2017 Unkn own LIPID GROUP 08655 HDL CHOLESTEROL 50 mg/dL 12/10/2017 U nknown LIPID GROUP 84903 Chol/HDL Ratio 4.08 ratio 12/10/2017 U nknown LIPID GROUP 41894 NON-HDL Chol 154 mg/dL 12/10/2017 Unkn own LIPID GROUP 01961 LDL Cholesterol N/A Trig >400 018 Unknown GLYCOSYLATED HEMOGLOBIN TEST 48784 Hgb A1c 61907-5 7.6 % 0 12/10/2017 Unknown FREE T4 65959 T4 Free 1.40 ng/dL 12/10/2017 Unknown GFR CALC 7010320 GFR Afr Amr >60 mL/min 12/10/2017 Unknow n GFR CALC 4155893 GFR Non Afr Amr 55 mL/min 12/10/2017 Unk nown GFR CALC 8339496 GFR Non Afr Amr 48 mL/min 06/28/2017 Unk nown GFR CALC 3633588 GFR Afr Amr 59 mL/min 06/28/2017 Unknown COMPREHENSIVE METABOLIC 67671 AST 32 U/L 2016 Unknown COMPREHENSIVE METABOLIC 67796 ALT 22 U/L 2016 Unknown COMPREHENSIVE METABOLIC 49183 BUN 23 mg/dL 2016 Unknown COMPREHENSIVE METABOLIC 91099 ALBUMIN 4.7 g/dL 2016 Unknown COMPREHENSIVE METABOLIC 94947 CHLORIDE 89 mmol/L 2016 Unknown COMPREHENSIVE METABOLIC 18906 Bili Total 0.5 mg/dL 06/28 Unknown COMPREHENSIVE METABOLIC 62418 ALK PHOS 90 U/L 2016 Unknown COMPREHENSIVE METABOLIC 94935 SODIUM 135 mmol/L 06/28 Unknown COMPREHENSIVE METABOLIC 40678 CREATININE 1.18 mg/dL 06/10 Unknown COMPREHENSIVE METABOLIC 03152 CALCIUM 9.7 mg/dL 2016 Unknown COMPREHENSIVE METABOLIC 74731 POTASSIUM 3.5 mmol/L 06/28 Unknown COMPREHENSIVE METABOLIC 71401 Total Protein 7.7 g/dL Unknown COMPREHENSIVE METABOLIC 72088 Glucose 129 mg/dL 2016 Unknown COMPREHENSIVE METABOLIC 61307 Bicarbonate 34 mmol/L 06/10 Unknown COMPREHENSIVE METABOLIC 33236 AGAP 12 mmol/L 2016 Unknown LIPID GROUP 69842 HDL TEST 64 MG/DL 08/27/2014 Unknown LIPID GROUP 19465 TRIG 222 MG/DL 08/27/2014 Unknown LIPID GROUP 83338 TEST LDL 209 MG/DL 08/27/2014 Unknown LIPID GROUP 45127 CHOL 317 MG/DL 08/27/2014 Unknown LIPID GROUP 33094 RCHOL/HDL 4.95 RATIO 08/27/2014 Unknow n LIPID GROUP 03083 NON-HDL CH 253 MG/DL 08/27/2014 Unknow n GFR CALC 3620942 GFR AA >60 ML/MIN 08/27/2014 Unknown GFR CALC 3749517 GFR NON-AA >60 ML/MIN 08/27/2014 Unknown COMPLETE BLOOD COUNT 3892490 WBC 7.0 10e9/L 08/27/20 14 Unknown COMPLETE BLOOD COUNT 6073028 RBC 4.98 10e12/L 2013 Unknown COMPLETE BLOOD COUNT 4848541 HGB 15.6 g/dL 4 Unknown COMPLETE BLOOD COUNT 2975647 HCT DET 46.5 % 4 Unknown COMPLETE BLOOD COUNT 6282909 MCV 93.4 fL 4 Unknown COMPLETE BLOOD COUNT 6223814 MCH 31.3 pg 4 Unknown COMPLETE BLOOD COUNT 6268019 MCHC 33.5 g/dL 4 Unknown COMPLETE BLOOD COUNT 0989167 PLT 309 10e9/L 08/27/20 14 Unknown COMPLETE BLOOD COUNT 6721042 MPV 9.6 fL 4 Unknown COMPLETE BLOOD COUNT 3332628 CADEN % 57.2 % 4 Unknown COMPLETE BLOOD COUNT 9766156 LY % 33.2 % 4 Unknown COMPLETE BLOOD COUNT 0649213 MON % 7.3 % 4 Unknown COMPLETE BLOOD COUNT 2268157 EOS % 2.0 % 4 Unknown COMPLETE BLOOD COUNT 3846844 BASO % 0.3 % 4 Unknown COMPLETE BLOOD COUNT 4297567 RDW 13.7 % 4 Unknown COMPLETE BLOOD COUNT 6183615 ABS CADEN 4.00 10e9/L 014 Unknown COMPLETE BLOOD COUNT 2271226 ABS LYMPH 2.32 10e9/L 014 Unknown COMPLETE BLOOD COUNT 0833230 ABS MONO 0.51 10e9/L 014 Unknown COMPLETE BLOOD COUNT 4013767 ABS EOS 0.14 10e9/L 014 Unknown COMPLETE BLOOD COUNT 5721862 ABS BASO 0.02 10e9/L 014 Unknown COMPLETE BLOOD COUNT 1282094 RDW-SD 45.1 fL 4 Unknown COMPREHENSIVE METABOLIC 74146 AST 13 U/L 2013 Unknown COMPREHENSIVE METABOLIC 04882 ALT 11 IU/L 2013 Unknown COMPREHENSIVE METABOLIC 28573 BUN 23 MG/DL 2013 Unknown COMPREHENSIVE METABOLIC 89077 ALBUMIN 4.4 GM/DL 2013 Unknown COMPREHENSIVE METABOLIC 33097 CHLORIDE 99 MMOL/L 2013 Unknown COMPREHENSIVE METABOLIC 16083 BILI TOT 0.5 MG/DL 2013 Unknown COMPREHENSIVE METABOLIC 22699 ALK PHOS 56 U/L 2013 Unknown COMPREHENSIVE METABOLIC 41102 SODIUM 138 MMOL/L 08/27 Unknown COMPREHENSIVE METABOLIC 33042 CREATININE 0.95 MG/DL 08/10 Unknown COMPREHENSIVE METABOLIC 48969 CALCIUM 9.8 MG/DL 2013 Unknown COMPREHENSIVE METABOLIC 68649 POTASSIUM 3.5 MMOL/L 08/27 Unknown COMPREHENSIVE METABOLIC 87115 PROT TOT 6.8 GM/DL 2013 Unknown COMPREHENSIVE METABOLIC 20822 Glucose 90 MG/DL 2013 Unknown COMPREHENSIVE METABOLIC 17745 BICARB 34 MMOL/L 2013 Unknown COMPREHENSIVE METABOLIC 76064 ANION GAP 5 MEQ/L 2013 Unknown LIPASE 87461 LIPASE 11 IU/L 07/21/2014 Unknown AMYLASE 68430 AMYLASE 39 IU/L 07/21/2014 Unknown HEMOGLOBIN A1C (GLYCOSYLATED) 1026086 A1C HPLC 23393-9 6.2 % 03/05/2013 Unknown THYROID STIMULATING HORMONE 49715 TSH 6.986 uIU/ML 03/05/2013 Unknown COMPLETE BLOOD COUNT 5366900 WBC 12.7 10e9/L 013 Unknown COMPLETE BLOOD COUNT 1699069 RBC 4.53 10e12/L 2012 Unknown COMPLETE BLOOD COUNT 8397329 HGB 14.7 g/dL 3 Unknown COMPLETE BLOOD COUNT 2193892 HCT DET 43.1 % 3 Unknown COMPLETE BLOOD COUNT 4573089 MCV 95.1 fL 3 Unknown COMPLETE BLOOD COUNT 8221067 MCH 32.5 pg 3 Unknown COMPLETE BLOOD COUNT 9887549 MCHC 34.1 g/dL 3 Unknown COMPLETE BLOOD COUNT 9548684 PLT 346 10e9/L 03/05/20 13 Unknown COMPLETE BLOOD COUNT 3007422 MPV 9.5 fL 3 Unknown COMPLETE BLOOD COUNT 8533923 CADEN % 67.6 % 3 Unknown COMPLETE BLOOD COUNT 8749365 LY % 22.1 % 3 Unknown COMPLETE BLOOD COUNT 8240219 MON % 6.6 % 3 Unknown COMPLETE BLOOD COUNT 6998932 EOS % 3.3 % 3 Unknown COMPLETE BLOOD COUNT 8700433 BASO % 0.4 % 3 Unknown COMPLETE BLOOD COUNT 2333410 RDW 14.0 % 3 Unknown COMPLETE BLOOD COUNT 7027891 ABS CADEN 8.59 10e9/L 013 Unknown COMPLETE BLOOD COUNT 2867573 ABS LYMPH 2.81 10e9/L 013 Unknown COMPLETE BLOOD COUNT 5819043 ABS MONO 0.84 10e9/L 013 Unknown COMPLETE BLOOD COUNT [id number] ABS EOS 0.42 10e9/L 013 Unknown COMPLETE BLOOD COUNT [id number] ABS BASO 0.05 10e9/L 013 Unknown COMPLETE BLOOD COUNT 0553635 RDW-SD 46.0 fL 3 Unknown FREE T4 74705 FREE T4 1.14 NG/DL 03/05/2013 Unknown COMPREHENSIVE METABOLIC 05524 AST 17 U/L 2012 Unknown COMPREHENSIVE METABOLIC 02690 ALT 12 IU/L 2012 Unknown COMPREHENSIVE METABOLIC 53265 BUN 24 MG/DL 2012 Unknown COMPREHENSIVE METABOLIC 14716 ALBUMIN 4.2 GM/DL 2012 Unknown COMPREHENSIVE METABOLIC 67174 CHLORIDE 93 MMOL/L 2012 Unknown COMPREHENSIVE METABOLIC 62438 BILI TOT 0.5 MG/DL 2012 Unknown COMPREHENSIVE METABOLIC 60332 ALK PHOS 75 U/L 2012 Unknown COMPREHENSIVE METABOLIC 98012 SODIUM 141 MMOL/L 03/05 Unknown COMPREHENSIVE METABOLIC 87865 CREATININE 1.36 MG/DL 02/09 Unknown COMPREHENSIVE METABOLIC 33525 CALCIUM 9.2 MG/DL 2012 Unknown COMPREHENSIVE METABOLIC 82140 POTASSIUM 3.1 MMOL/L 03/05 Unknown COMPREHENSIVE METABOLIC 38112 PROT TOT 6.9 GM/DL 2012 Unknown COMPREHENSIVE METABOLIC 14998 Glucose 123 MG/DL 2012 Unknown COMPREHENSIVE METABOLIC 56072 BICARB 36 MMOL/L 2012 Unknown COMPREHENSIVE METABOLIC 89066 ANION GAP 12 MEQ/L 2012 Unknown GFR CALC 5509272 GFR AA 51.0L ML/MIN 03/05/2013 Unknow n GFR CALC 2238778 GFR NON-AA 42.0L ML/MIN 03/05/2013 Unkno wn COMPREHENSIVE METABOLIC 82349 AST 14 U/L 2012 Unknown COMPREHENSIVE METABOLIC 23210 ALT 11 IU/L 2012 Unknown COMPREHENSIVE METABOLIC 21453 BUN 16 MG/DL 2012 Unknown COMPREHENSIVE METABOLIC 46643 ALBUMIN 4.2 GM/DL 2012 Unknown COMPREHENSIVE METABOLIC 39304 CHLORIDE 98 MMOL/L 2012 Unknown COMPREHENSIVE METABOLIC 27280 BILI TOT 0.4 MG/DL 2012 Unknown COMPREHENSIVE METABOLIC 01329 ALK PHOS 77 U/L 2012 Unknown COMPREHENSIVE METABOLIC 80494 SODIUM 139 MMOL/L 09/25 Unknown COMPREHENSIVE METABOLIC 15196 CREATININE 0.86 MG/DL 09/10 Unknown COMPREHENSIVE METABOLIC 70815 CALCIUM 9.5 MG/DL 2012 Unknown COMPREHENSIVE METABOLIC 60737 POTASSIUM 3.8 MMOL/L 09/25 Unknown COMPREHENSIVE METABOLIC 29458 PROT TOT 6.8 GM/DL 2012 Unknown COMPREHENSIVE METABOLIC 84656 Glucose 91 MG/DL 2012 Unknown COMPREHENSIVE METABOLIC 11633 BICARB 32 MMOL/L 2012 Unknown COMPREHENSIVE METABOLIC 67746 ANION GAP 9 MEQ/L 2012 Unknown FREE T4 10524 FREE T4 0.98 NG/DL 09/25/2012 Unknown THYROID STIMULATING HORMONE 79441 TSH 1.736 uIU/ML 09/25/2012 Unknown C-REACTIVE PROTEIN (CRP) QUANT 56657 CRP 2.3 MG/DL 09/25/2012 Unknown COMPLETE BLOOD COUNT [id number] WBC 11.9 10e9/L 013 Unknown COMPLETE BLOOD COUNT 0692788 RBC 4.87 10e12/L 2012 Unknown COMPLETE BLOOD COUNT 7282768 HGB 15.1 g/dL 3 Unknown COMPLETE BLOOD COUNT 3261459 HCT DET 44.8 % 3 Unknown COMPLETE BLOOD COUNT 1923341 MCV 92.0 fL 3 Unknown COMPLETE BLOOD COUNT 0324643 MCH 31.0 pg 3 Unknown COMPLETE BLOOD COUNT 2105385 MCHC 33.7 g/dL 3 Unknown COMPLETE BLOOD COUNT 6863771 PLT 343 10e9/L 09/25/19 13 Unknown COMPLETE BLOOD COUNT 1615201 MPV 9.0 fL 3 Unknown COMPLETE BLOOD COUNT 4580216 CADEN % 68.2 % 3 Unknown COMPLETE BLOOD COUNT 7021923 LY % 22.4 % 3 Unknown COMPLETE BLOOD COUNT 8613338 MON % 6.4 % 3 Unknown COMPLETE BLOOD COUNT 5774192 EOS % 2.7 % 3 Unknown COMPLETE BLOOD COUNT 2787397 BASO % 0.3 % 3 Unknown COMPLETE BLOOD COUNT 2588680 RDW 13.8 % 3 Unknown COMPLETE BLOOD COUNT 7276391 ABS CADEN 8.12 10e9/L 013 Unknown COMPLETE BLOOD COUNT 1710157 ABS LYMPH 2.67 10e9/L 013 Unknown COMPLETE BLOOD COUNT 7851251 ABS MONO 0.76 10e9/L 013 Unknown COMPLETE BLOOD COUNT 4315311 ABS EOS 0.32 10e9/L 013 Unknown COMPLETE BLOOD COUNT [id number] ABS BASO 0.04 10e9/L 013 Unknown COMPLETE BLOOD COUNT 0741518 RDW-SD 45.6 fL 3 Unknown GFR CALC 6359474 GFR AA >60 ML/MIN 09/25/2012 Unknown GFR CALC 4387609 GFR NON-AA >60 ML/MIN 09/25/2012 Unknown ERYTHROCYTE SEDIMENTATION RATE 37984 ESR 19 MM/HR 05/06/2012 Unknown VITAMIN B 12 FOLIC ACID 12398|88968 VIT B 12 922 PG/ML 04/11 Unknown VITAMIN B 12 FOLIC ACID 93747|20860 FOLIC ACID 13.6 NG/ML Unknown URIC ACID 81454 URIC ACID 7.8 MG/DL 05/06/2012 Unknown COMPLETE BLOOD COUNT 84797 WBC 11.9 10e9/L 012 Unknown COMPLETE BLOOD COUNT 72177 RBC 5.30 10e12/L 2011 Unknown COMPLETE BLOOD COUNT 30573 HGB 16.6 g/dL 2 Unknown COMPLETE BLOOD COUNT 07216 HCT DET 47.2 % 2 Unknown COMPLETE BLOOD COUNT 60208 MCV 89.1 fL 2 Unknown COMPLETE BLOOD COUNT 63044 MCH 31.3 pg 2 Unknown COMPLETE BLOOD COUNT 26552 MCHC 35.2 g/dL 2 Unknown COMPLETE BLOOD COUNT 08080 PLT 362 10e9/L 05/06/20 12 Unknown COMPLETE BLOOD COUNT 89133 MPV 9.4 fL 2 Unknown COMPLETE BLOOD COUNT 20360 CADEN % 68.2 % 2 Unknown COMPLETE BLOOD COUNT 56650 LY % 22.0 % 2 Unknown COMPLETE BLOOD COUNT 55779 MON % 6.9 % 2 Unknown COMPLETE BLOOD COUNT 71515 EOS % 2.6 % 2 Unknown COMPLETE BLOOD COUNT 34793 BASO % 0.3 % 2 Unknown COMPLETE BLOOD COUNT 90910 RDW 12.8 % 2 Unknown COMPLETE BLOOD COUNT 32180 ABS CADEN 8.12 10e9/L 012 Unknown COMPLETE BLOOD COUNT 24530 ABS LYMPH 2.62 10e9/L 012 Unknown COMPLETE BLOOD COUNT 70664 ABS MONO 0.82 10e9/L 012 Unknown COMPLETE BLOOD COUNT 73380 ABS EOS 0.31 10e9/L 012 Unknown COMPLETE BLOOD COUNT 68599 ABS BASO 0.04 10e9/L 012 Unknown COMPLETE BLOOD COUNT 34555 RDW-SD 41.5 fL 2 Unknown GFR CALC 7775933 GFR AA >60 ML/MIN 05/06/2012 Unknown GFR CALC 7436057 GFR NON-AA 58.0L ML/MIN 05/06/2012 Unkno wn FREE T4 75773 FREE T4 1.15 NG/DL 05/06/2012 Unknown THYROID STIMULATING HORMONE 43944 TSH 1.568 uIU/ML 05/06/2012 Unknown COMPREHENSIVE METABOLIC 18237 AST 20 U/L 2011 Unknown COMPREHENSIVE METABOLIC 84711 ALT 12 IU/L 2011 Unknown COMPREHENSIVE METABOLIC 08856 BUN 20 MG/DL 2011 Unknown COMPREHENSIVE METABOLIC 01861 ALBUMIN 4.5 GM/DL 2011 Unknown COMPREHENSIVE METABOLIC 98463 CHLORIDE 91 MMOL/L 2011 Unknown COMPREHENSIVE METABOLIC 45349 BILI TOT 0.4 MG/DL 2011 Unknown COMPREHENSIVE METABOLIC 80399 ALK PHOS 73 U/L 2011 Unknown COMPREHENSIVE METABOLIC 17310 SODIUM 139 MMOL/L 05/06 Unknown COMPREHENSIVE METABOLIC 32875 CREATININE 1.02 MG/DL 04/11 Unknown COMPREHENSIVE METABOLIC 04230 CALCIUM 9.7 MG/DL 2011 Unknown COMPREHENSIVE METABOLIC 53841 POTASSIUM 3.1 MMOL/L 05/06 Unknown COMPREHENSIVE METABOLIC 43800 PROT TOT 7.3 GM/DL 2011 Unknown COMPREHENSIVE METABOLIC 49726 Glucose 118 MG/DL 2011 Unknown COMPREHENSIVE METABOLIC 28504 BICARB 33 MMOL/L 2011 Unknown COMPREHENSIVE METABOLIC 49813 ANION GAP 15 MEQ/L 2011 Unknown Procedures Procedure Codes Date ROUTINE VENIPUNCTURE CPT-4: 37547 09/29/2019 URINALYSIS NONAUTO W/O SCOPE CPT-4: 76792 09/29/2019 COMPREHEN METABOLIC PANEL CPT-4: 03158 09/29/2019 LIPID PANEL CPT-4: 06828 09/29/2019 A1C HPLC CPT-4: 98012 09/29/2019 ASSAY OF FREE THYROXINE CPT-4: 77574 09/29/2019 ASSAY THYROID STIM HORMONE CPT-4: 08220 09/29/2019 COMPLETE CBC W/AUTO DIFF WBC CPT-4: 50264 09/29/2019 URINALYSIS NONAUTO W/O SCOPE CPT-4: 52760 09/30/2018 MICROALBUMIN QUANTITATIVE CPT-4: 89713 09/30/2018 CEFTRIAXONE SODIUM INJECTION CPT-4: J0696 06/19/2018 THER/PROPH/DIAG INJ SC/IM CPT-4: 61897 06/19/2018 CEFTRIAXONE SODIUM INJECTION CPT-4: J0696 06/17/2018 THER/PROPH/DIAG INJ SC/IM CPT-4: 74263 06/17/2018 THER/PROPH/DIAG INJ SC/IM CPT-4: 86262 05/16/2018 KETOROLAC TROMETHAMINE INJ CPT-4: J1885 05/16/2018 ONDANSETRON HCL INJECTION CPT-4: J2405 05/16/2018 THER/PROPH/DIAG INJ SC/IM CPT-4: 68639 05/16/2018 ROUTINE VENIPUNCTURE CPT-4: 93592 03/20/2018 COMPREHEN METABOLIC PANEL CPT-4: 59467 03/20/2018 DEXAMETHASONE SODIUM PHOS CPT-4: J1100 02/11/2018 THER/PROPH/DIAG INJ SC/IM CPT-4: 74775 02/11/2018 TRIAMCINOLONE ACET INJ NOS CPT-4: J3301 02/11/2018 CEFTRIAXONE SODIUM INJECTION CPT-4: J0696 02/01/2018 THER/PROPH/DIAG INJ SC/IM CPT-4: 06163 02/01/2018 CEFTRIAXONE SODIUM INJECTION CPT-4: J0696 01/30/2018 THER/PROPH/DIAG INJ SC/IM CPT-4: 62693 01/30/2018 ROUTINE VENIPUNCTURE CPT-4: 81549 12/10/2017 ASSAY OF FREE THYROXINE CPT-4: 45228 12/10/2017 ASSAY THYROID STIM HORMONE CPT-4: 38026 12/10/2017 COMPREHEN METABOLIC PANEL CPT-4: 59346 12/10/2017 COMPLETE CBC W/AUTO DIFF WBC CPT-4: 71756 12/10/2017 LIPID PANEL CPT-4: 32212 12/10/2017 A1C HPLC CPT-4: 30328 12/10/2017 CEFTRIAXONE SODIUM INJECTION CPT-4: J0696 12/10/2017 THER/PROPH/DIAG INJ SC/IM CPT-4: 85719 12/10/2017 CEFTRIAXONE SODIUM INJECTION CPT-4: J0696 12/07/2017 THER/PROPH/DIAG INJ SC/IM CPT-4: 63146 12/07/2017 DEXAMETHASONE SODIUM PHOS CPT-4: J1100 12/07/2017 THER/PROPH/DIAG INJ SC/IM CPT-4: 61291 12/07/2017 CEFTRIAXONE SODIUM INJECTION CPT-4: J0696 10/08/2017 THER/PROPH/DIAG INJ SC/IM CPT-4: 91917 10/08/2017 CEFTRIAXONE SODIUM INJECTION CPT-4: J0696 09/21/2017 THER/PROPH/DIAG INJ SC/IM CPT-4: 00978 09/21/2017 CEFTRIAXONE SODIUM INJECTION CPT-4: J0696 09/20/2017 THER/PROPH/DIAG INJ SC/IM CPT-4: 40730 09/20/2017 REMOVAL OF NAIL PLATE CPT-4: 54524 08/29/2017 THER/PROPH/DIAG INJ SC/IM CPT-4: 73137 08/29/2017 TRIAMCINOLONE ACET INJ NOS CPT-4: J3301 08/29/2017 CEFTRIAXONE SODIUM INJECTION CPT-4: J0696 08/29/2017 THER/PROPH/DIAG INJ SC/IM CPT-4: 06457 08/29/2017 DESTRUCT PREMALG LESION (Cryosurgery) CPT-4: 47991 ROUTINE VENIPUNCTURE CPT-4: 44944 06/27/2017 ASSAY OF FREE THYROXINE CPT-4: 36486 06/27/2017 ASSAY THYROID STIM HORMONE CPT-4: 28348 06/27/2017 COMPREHEN METABOLIC PANEL CPT-4: 03104 06/27/2017 COMPLETE CBC W/AUTO DIFF WBC CPT-4: 75134 06/27/2017 EXC TR-EXT B9+REECE 0.5 CM< CPT-4: 23575 01/24/2017 THER/PROPH/DIAG INJ SC/IM CPT-4: 10123 08/02/2016 DEXAMETHASONE SODIUM PHOS CPT-4: J1100 08/02/2016 DESTRUCT [facility] (Cryosurgery) CPT-4: 85055 EXC TR-EXT B9+REECE 0.5 CM< CPT-4: 79243 08/01/2016 AEROBIC WOUND CULTURE & STN CPT-4: 33771 07/06/2016 CEFTRIAXONE SODIUM INJECTION CPT-4: J0696 05/25/2016 THER/PROPH/DIAG INJ SC/IM CPT-4: 64976 05/25/2016 THER/PROPH/DIAG INJ SC/IM CPT-4: 74989 04/26/2016 DEXAMETHASONE SODIUM PHOS CPT-4: J1100 04/26/2016 CEFTRIAXONE SODIUM INJECTION CPT-4: J0696 04/26/2016 THER/PROPH/DIAG INJ SC/IM CPT-4: 06241 04/26/2016 THER/PROPH/DIAG INJ SC/IM CPT-4: 03332 02/09/2016 TRIAMCINOLONE ACET INJ NOS CPT-4: J3301 02/09/2016 URINALYSIS NONAUTO W/O SCOPE CPT-4: 08521 01/24/2016 URINE CULTURE/ COLONY COUNT CPT-4: 43135 01/24/2016 THER/PROPH/DIAG INJ SC/IM CPT-4: 45120 12/08/2015 TRIAMCINOLONE ACET INJ NOS CPT-4: J3301 12/08/2015 THER/PROPH/DIAG INJ SC/IM CPT-4: 73609 10/07/2015 TRIAMCINOLONE ACET INJ NOS CPT-4: J3301 10/07/2015 DESTRUCT [facility] (Cryosurgery) CPT-4: 94968 THER/PROPH/DIAG INJ SC/IM CPT-4: 45348 03/16/2015 METHYLPREDNISOLONE 40 MG INJ CPT-4: J1030 03/16/2015 DESTRUCT [facility] (Cryosurgery) CPT-4: 22729 THER/PROPH/DIAG INJ SC/IM CPT-4: 61601 09/11/2014 METHYLPREDNISOLONE 40 MG INJ CPT-4: J1030 09/11/2014 TRIAMCINOLONE ACET INJ NOS CPT-4: J3301 09/11/2014 CEFTRIAXONE SODIUM INJECTION CPT-4: J0696 09/11/2014 THER/PROPH/DIAG INJ SC/IM CPT-4: 61137 09/11/2014 ROUTINE VENIPUNCTURE CPT-4: 56954 08/27/2014 COMPREHEN METABOLIC PANEL CPT-4: 16869 08/27/2014 COMPLETE CBC W/AUTO DIFF WBC CPT-4: 81920 08/27/2014 LIPID PANEL CPT-4: 20180 08/27/2014 ROUTINE VENIPUNCTURE CPT-4: 63288 07/21/2014 ASSAY OF AMYLASE CPT-4: 66170 07/21/2014 ASSAY OF LIPASE CPT-4: 39844 07/21/2014 THER/PROPH/DIAG INJ SC/IM CPT-4: 28068 07/15/2014 TRIAMCINOLONE ACET INJ NOS CPT-4: J3301 07/15/2014 ROUTINE VENIPUNCTURE CPT-4: 12104 05/14/2014 ASSAY OF FREE THYROXINE CPT-4: 40753 05/14/2014 ASSAY THYROID STIM HORMONE CPT-4: 04075 05/14/2014 COMPREHEN METABOLIC PANEL CPT-4: 28897 05/14/2014 COMPLETE CBC W/AUTO DIFF WBC CPT-4: 33974 05/14/2014 LIPID PANEL CPT-4: 73852 05/14/2014 CEFTRIAXONE SODIUM INJECTION CPT-4: J0696 04/21/2014 THER/PROPH/DIAG INJ SC/IM CPT-4: 67066 04/21/2014 THER/PROPH/DIAG INJ SC/IM CPT-4: 96160 04/21/2014 TRIAMCINOLONE ACET INJ NOS CPT-4: J3301 04/21/2014 THER/PROPH/DIAG INJ SC/IM CPT-4: 85980 03/04/2014 METHYLPREDNISOLONE 40 MG INJ CPT-4: J1030 03/04/2014 TRIAMCINOLONE ACET INJ NOS CPT-4: J3301 03/04/2014 CEFTRIAXONE SODIUM INJECTION CPT-4: J0696 03/04/2014 THER/PROPH/DIAG INJ SC/IM CPT-4: 47493 03/04/2014 TDAP VACCINE 7 YRS/> IM CPT-4: 45934 02/27/2014 IMMUNIZATION ADMIN CPT-4: 52347 02/27/2014 DESTRUCT [facility] (Cryosurgery) CPT-4: 36294 DESTRUCT PREMALG LES 2-14 CPT-4: 20205 01/13/2014 THER/PROPH/DIAG INJ SC/IM CPT-4: 90206 10/21/2013 METHYLPREDNISOLONE 40 MG INJ CPT-4: J1030 10/21/2013 TRIAMCINOLONE ACET INJ NOS CPT-4: J3301 10/21/2013 CEFTRIAXONE SODIUM INJECTION CPT-4: J0696 08/27/2013 THER/PROPH/DIAG INJ SC/IM CPT-4: 24208 08/27/2013 THER/PROPH/DIAG INJ SC/IM CPT-4: 49116 08/27/2013 METHYLPREDNISOLONE 40 MG INJ CPT-4: J1030 08/27/2013 TRIAMCINOLONE ACET INJ NOS CPT-4: J3301 08/27/2013 THER/PROPH/DIAG INJ SC/IM CPT-4: 70575 06/23/2013 METHYLPREDNISOLONE 40 MG INJ CPT-4: J1030 06/23/2013 TRIAMCINOLONE ACET INJ NOS CPT-4: J3301 06/23/2013 THER/PROPH/DIAG INJ SC/IM CPT-4: 17568 05/26/2013 METHYLPREDNISOLONE 40 MG INJ CPT-4: J1030 05/26/2013 TRIAMCINOLONE ACET INJ NOS CPT-4: J3301 05/26/2013 ROUTINE VENIPUNCTURE CPT-4: 69506 03/05/2013 ASSAY OF FREE THYROXINE CPT-4: 41037 03/05/2013 ASSAY THYROID STIM HORMONE CPT-4: 76216 03/05/2013 COMPREHEN METABOLIC PANEL CPT-4: 68933 03/05/2013 COMPLETE CBC W/AUTO DIFF WBC CPT-4: 76824 03/05/2013 A1C GLYCOSYLATED HEMOGLOBIN TEST CPT-4: 13801 013 DRAIN/INJECT JOINT/BURSA CPT-4: 02311 12/04/2012 METHYLPREDNISOLONE 40 MG INJ CPT-4: J1030 12/04/2012 TRIAMCINOLONE ACET INJ NOS CPT-4: J3301 12/04/2012 CEFTRIAXONE SODIUM INJECTION CPT-4: J0696 11/21/2012 THER/PROPH/DIAG INJ SC/IM CPT-4: 13483 11/21/2012 THER/PROPH/DIAG INJ SC/IM CPT-4: 89607 10/14/2012 METHYLPREDNISOLONE 40 MG INJ CPT-4: J1030 10/14/2012 TRIAMCINOLONE ACET INJ NOS CPT-4: J3301 10/14/2012 URINALYSIS NONAUTO W/O SCOPE CPT-4: 69234 09/27/2012 ROUTINE VENIPUNCTURE CPT-4: 88248 09/25/2012 ASSAY OF FREE THYROXINE CPT-4: 40654 09/25/2012 ASSAY THYROID STIM HORMONE CPT-4: 08807 09/25/2012 COMPREHEN METABOLIC PANEL CPT-4: 96929 09/25/2012 COMPLETE CBC W/AUTO DIFF WBC CPT-4: 98559 09/25/2012 C-REACTIVE PROTEIN CPT-4: 63543 09/25/2012 THER/PROPH/DIAG INJ SC/IM CPT-4: 88957 08/29/2012 METHYLPREDNISOLONE 40 MG INJ CPT-4: J1030 08/29/2012 TRIAMCINOLONE ACET INJ NOS CPT-4: J3301 08/29/2012 DESTRUCT [facility] (Cryosurgery) CPT-4: 20309 THER/PROPH/DIAG INJ SC/IM CPT-4: 45590 05/06/2012 METHYLPREDNISOLONE 40 MG INJ CPT-4: J1030 05/06/2012 TRIAMCINOLONE ACET INJ NOS CPT-4: J3301 05/06/2012 VITAMIN B 12 FOLIC ACID CPT-4: 53831|95731 05/06/2012 RBC SED RATE AUTOMATED CPT-4: 73070 05/06/2012 ROUTINE VENIPUNCTURE CPT-4: 81256 05/06/2012 ASSAY OF FREE THYROXINE CPT-4: 10035 05/06/2012 ASSAY THYROID STIM HORMONE CPT-4: 81478 05/06/2012 COMPREHEN METABOLIC PANEL CPT-4: 70449 05/06/2012 COMPLETE CBC W/AUTO DIFF WBC CPT-4: 91586 05/06/2012 ASSAY OF BLOOD/URIC ACID CPT-4: 39924 05/06/2012 THER/PROPH/DIAG INJ SC/IM CPT-4: 63225 03/19/2012 KETOROLAC TROMETHAMINE INJ CPT-4: J1885 03/19/2012 KETOROLAC TROMETHAMINE INJ CPT-4: J1885 01/30/2012 THER/PROPH/DIAG INJ SC/IM CPT-4: 75939 01/30/2012 PROMETHAZINE HCL INJECTION CPT-4: J2550 01/30/2012 THER/PROPH/DIAG INJ SC/IM CPT-4: 35008 01/24/2012 METHYLPREDNISOLONE 40 MG INJ CPT-4: J1030 01/24/2012 TRIAMCINOLONE ACET INJ NOS CPT-4: J3301 01/24/2012 THER/PROPH/DIAG INJ SC/IM CPT-4: 98433 09/13/2011 KETOROLAC TROMETHAMINE INJ CPT-4: J1885 09/13/2011 THER/PROPH/DIAG INJ SC/IM CPT-4: 86753 09/13/2011 PROMETHAZINE HCL INJECTION CPT-4: J2550 09/13/2011 CEFTRIAXONE SODIUM INJECTION CPT-4: J0696 07/20/2011 THER/PROPH/DIAG INJ SC/IM CPT-4: 53913 07/20/2011 THER/PROPH/DIAG INJ SC/IM CPT-4: 34507 07/20/2011 METHYLPREDNISOLONE INJECTION CPT-4: J2930 07/20/2011 URINALYSIS NONAUTO W/O SCOPE CPT-4: 29387 05/09/2011 CEFTRIAXONE SODIUM INJECTION CPT-4: J0696 05/09/2011 THER/PROPH/DIAG INJ SC/IM CPT-4: 48290 05/09/2011 THER/PROPH/DIAG INJ SC/IM CPT-4: 82335 05/09/2011 PROMETHAZINE HCL INJECTION CPT-4: J2550 05/09/2011 HYDRATION IV INFUSION INIT CPT-4: 90036 05/09/2011 DESTRUCT [facility] (Cryosurgery) CPT-4: 08386 DESTRUCT PREMAL[facility] LES 2-14 CPT-4: 26113 07/19/2010 REMOVAL OF SKIN TAGS <W/15 CPT-4: 24331 05/30/2010 THER/PROPH/DIAG INJ SC/IM CPT-4: 60132 04/05/2010 CEFTRIAXONE SODIUM INJECTION CPT-4: J0696 04/05/2010 TRIAMCINOLONE ACET INJ NOS CPT-4: J3301 04/05/2010 METHYLPREDNISOLONE 40 MG INJ CPT-4: J1030 04/05/2010 THER/PROPH/DIAG INJ SC/IM CPT-4: 18284 04/05/2010 TRIAMCINOLONE ACET INJ NOS CPT-4: J3301 03/09/2010 METHYLPREDNISOLONE 40 MG INJ CPT-4: J1030 03/09/2010 THER/PROPH/DIAG INJ SC/IM CPT-4: 94257 03/09/2010 THER/PROPH/DIAG INJ SC/IM CPT-4: 77177 03/09/2010 CEFTRIAXONE SODIUM INJECTION CPT-4: J0696 03/09/2010 Vital Signs Date Vital 10/07/2019 Blood Pressure 1: 134/82 Code: 8480-6 Heart Rate 1: 105 bpm Respiratory Rate: 17 bpm SpO2: 96% Temperature: 36.8 (C) / 98.2 (F) We ight: 198 lbs 09/30/2019 Blood Pressure 1: 132/80 Code: 8480-6 BMI: 35.8 Code: 62599-3 Heart Rate 1: 88 bpm Height: 5'4" Respiratory Rate: 20 bpm SpO2: 95% Tempera ture: 36.9 (C) / 98.5 (F) Weight: 210 lbs 05/28/2019 Blood Pressure 1: 126/82 Code: 8480-6 BMI: 35.0 Code: 80901-3 Heart Rate 1: 88 bpm Height: 5'4" [...] 1: 128/90 Code: 8480-6 BMI: 37.2 Code: 12688-5 Heart Rate 1: 84 bpm Height: 5'4" Respiratory Rate: 20 bpm SpO2: 95% Tempera ture: 36.6 (C) / 97.8 (F) Weight: 217 lbs 08/27/2018 Blood Pressure 1: 128/88 Code: 8480-6 BMI: 38.3 Code: 54510-8 Heart Rate 1: 84 bpm Height: 5'4" [...] 1: 119/72 Code: 8480-6 BMI: 37.4 Code: 85478-6 Heart Rate 1: 82 bpm Height: 5'4" Respiratory Rate: 12 bpm SpO2: 94% Tempera ture: 35.2 (C) / 95.4 (F) Weight: 218 lbs 12/18/2017 Blood Pressure 1: 128/86 Code: 8480-6 BMI: 37.8 Code: 91536-0 Heart Rate 1: 84 bpm Height: 5'4" [...] 1: 128/82 Code: 8480-6 BMI: 35.5 Code: 85521-0 Heart Rate 1: 84 bpm Height: 5'4" [...] 1: 128/82 Code: 8480-6 BMI: 30.2 Code: 44791-1 Heart Rate 1: 80 bpm Height: 5'4" [...] 1: 128/86 Code: 8480-6 BMI: 32.8 Code: 39690-1 Heart Rate 1: 66 bpm Height: 5'4" Respiratory Rate: 18 bpm Temperature: 36 .3 (C) / 97.3 (F) Weight: 191 lbs 06/23/2013 Blood Pressure 1: 132/94 Code: 8480-6 BMI: 34.0 Code: 09214-1 Heart Rate 1: 84 bpm Height: 5'4" Respiratory Rate: 20 bpm Temperature: 36 .8 (C) / 98.2 (F) Weight: 198 lbs 05/26/2013 Blood Pressure 1: 114/80 Code: 8480-6 BMI: 35.0 Code: 70983-3 Heart Rate 1: 80 bpm Height: 5'4" Respiratory Rate: 20 bpm Temperature: 36 .4 (C) / 97.6 (F) Weight: 204 lbs 04/16/2013 Blood Pressure 1: 114/82 Code: 8480-6 BMI: 36.7 Code: 46733-8 Heart Rate 1: 84 bpm Height: 5'4" Respiratory Rate: 20 bpm Temperature: 36 .7 (C) / 98.0 (F) Weight: 214 lbs 03/05/2013 Blood Pressure 1: 136/90 Code: 8480-6 BMI: 37.1 Code: 42645-2 Heart Rate 1: 84 bpm Height: 5'4" [...] 1: 168/114 Code: 8480-6 BMI: 36.2 Code: 89743-1 Heart Rate 1: 104 bpm Height: 5'4" Respiratory Rate: 20 bpm Temperature: 36 .8 (C) / 98.2 (F) Weight: 211 lbs 11/22/2012 Blood Pressure 1: 128/90 Code: 8480-6 Heart Rate 1: 88 bpm Respiratory Rate: 20 bpm SpO2: 96% Temperature: 36.8 (C) / 98.2 (F) 11/21/2012 Blood Pressure 1: 146/100 Code: 8480-6 BMI: 35.7 Code: 74091-0 Heart Rate 1: 96 bpm Height: 5'4" [...] 1: 138/100 Code: 8480-6 BMI: 35.7 Code: 74379-9 Heart Rate 1: 96 bpm Height: 5'4" Respiratory Rate: 20 bpm Temperature: 36 .8 (C) / 98.2 (F) Weight: 208 lbs 05/06/2012 Blood Pressure 1: 154/102 Code: 8480-6 BMI: 34.7 Code: 56215-2 Heart Rate 1: 116 bpm Height: 5'4" Respiratory Rate: 20 bpm Temperature: 36 .8 (C) / 98.2 (F) Weight: 202 lbs 04/03/2012 Blood Pressure 1: 134/94 Code: 8480-6 BMI: 34.8 Code: 87280-3 Heart Rate 1: 108 bpm Height: 5'4" Respiratory Rate: 20 bpm Temperature: 36 .8 (C) / 98.2 (F) Weight: 203 lbs 03/19/2012 Blood Pressure 1: 148/106 Code: 8480-6 BMI: 35.0 Code: 23033-7 Heart Rate 1: 100 bpm Height: 5'4" Respiratory Rate: 20 bpm Temperature: 36 .6 (C) / 97.9 (F) Weight: 204 lbs 02/22/2012 Blood Pressure 1: 146/94 Code: 8480-6 He art Rate 1: 88 bpm 02/21/2012 Blood Pressure 1: 172/120 Code: 8480-6 B lood Pressure 2: 152/106 Code: 8480-6 Heart Rate 1: 116 bpm 02/20/2012 Blood Pressure 1: 160/100 Code: 8480-6 BMI: 32.0 Code: 00836-6 Heart Rate 1: 84 bpm Height: 5'7" Temperature: 36.5 (C) / 97.7 (F) Weight: 204 lbs 01/30/2012 Blood Pressure 1: 152/110 Code: 8480-6 BMI: 32.0 Code: 25532-3 Heart Rate 1: 116 bpm Height: 5'7" Respiratory Rate: 20 bpm Temperature: 37 .0 (C) / 98.6 (F) Weight: 204 lbs 01/24/2012 Blood Pressure 1: 146/100 Code: 8480-6 BMI: 32.0 Code: 12909-2 Heart Rate 1: 100 bpm Height: 5'7" Respiratory Rate: 20 bpm Temperature: 36 .7 (C) / 98.0 (F) Weight: 204 lbs 01/10/2012 Blood Pressure 1: 156/94 Code: 8480-6 BMI: 32.6 Code: 55705-5 Heart Rate 1: 72 bpm Height: 5'7" Respiratory Rate: 20 bpm Temperature: 36 .8 (C) / 98.2 (F) Weight: 208 lbs 12/11/2011 Blood Pressure 1: 146/100 Code: 8480-6 Heart Rat e 1: 116 bpm Height: 5'7" Respiratory Rate: 20 bpm Temperature: 36.9 (C) / 98.4 (F) We ight: 11/09/2011 Blood Pressure 1: 148/96 Code: 8480-6 BMI: 32.1 Code: 94358-4 Heart Rate 1: 116 bpm Height: 5'7" Respiratory Rate: 20 bpm Temperature: 36 .7 (C) / 98.0 (F) Weight: 205 lbs 09/13/2011 Blood Pressure 1: 126/88 Code: 8480-6 Heart Rate 1: 88 bpm Height: 5'7" Respiratory Rate: 20 bpm Temperature: 36.9 (C) / 98.4 (F) We ight: 08/31/2011 Blood Pressure 1: 118/82 Code: 8480-6 BMI: 32.0 Code: 13142-0 Heart Rate 1: 80 bpm Height: 5'7" Temperature: 36.4 (C) / 97.6 (F) Weight: 204 lbs 07/06/2011 Blood Pressure 1: 128/86 Code: 8480-6 BMI: 30.9 Code: 96009-5 Heart Rate 1: 92 bpm Height: 5'7" Respiratory Rate: 20 bpm Temperature: 36 .9 (C) / 98.4 (F) Weight: 197 lbs 06/06/2011 Blood Pressure 1: 112/74 Code: 8480-6 BMI: 31.0 Code: 77819-8 Heart Rate 1: 72 bpm Height: 5'7" [...] 1: 128/92 Code: 8480-6 BMI: 33.6 Code: 41541-3 Heart Rate 1: 104 bpm Height: 5'4" [...] Check-up Encounters Encounter Performer Location Codes Date ([id number]) OFFICE/OUTPATIENT VISIT EST Diagnosis: Ingrowing nail[ICD10: L60.0] Diagnosis: Type 2 diabetes mellitus with hyperglycemia[ICD10: E11.65] Kathleen Zuniga MARÍA ELENA [employer] CPT-4: 58247 10/07/2019 ([id number]) OFFICE/OUTPATIENT VISIT EST Diagnosis: DM w/o complication type II, uncontrolled[ICD10: E11.65] Diagnosis: Hypertriglyceridemia[ICD10: E78.1] Diagnosis: Essential hypertension[ICD10: I10] María Elena [employer] CPT-4: 97631 09/30/2019 ([id number]) NURSE/OUTPATIENT VISIT EST Diagnosis: Essential (primary) hypertension[ICD10: I10] Diagnosis: Cervicalgia[ICD10: M54.2] Diagnosis: Hyperglycemia, unspecified[ICD10: R73.9] Diagnosis: Mixed hyperlipidemia[ICD10: E78.2] María Elena [employer] CPT-4: 35497 09/29/2019 ([id number]) OFFICE/OUTPATIENT VISIT EST Diagnosis: Essential (primary) hypertension[ICD10: I10] Diagnosis: Fall from bed, sequela[ICD10: W06.XXXS] María Elena APPIAH DO [facility] CPT-4: 86933 05/28/2019 ([id number]) NURSE/OUTPATIENT VISIT EST Diagnosis: Essential (primary) hypertension[ICD10: I10] María Elena APPIA[facility] DO [facility] CPT-4: 37912 05/19/2019 ([id number]) OFFICE/OUTPATIENT VISIT EST Diagnosis: Essential (primary) hypertension[ICD10: I10] Diagnosis: Type 2 diabetes mellitus with hyperglycemia[ICD10: E11.65] Diagnosis: Intervertebral disc disorders with radiculopathy, 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] Diagnosis: Hormone replacement therapy[ICD10: Z79.890] María Elena [facility] CPT-4: 49496 01/22/2019 ([id number]) OFFICE/OUTPATIENT VISIT EST Diagnosis: Essential (primary) hypertension[ICD10: I10] Diagnosis: Type 2 diabetes mellitus with hyperglycemia[ICD10: E11.65] María Elena APPIAH [facility] CPT-4: 29259 09/30/2018 ([id number]) OFFICE/OUTPATIENT VISIT EST Diagnosis: Pain in left elbow[ICD10: M25.522] Diagnosis: Acute stress reaction[ICD10: F43.0] Diagnosis: Primary insomnia[ICD10: F51.01] Diagnosis: Abnormal weight gain[ICD10: R63.5] María Elena APPIAH [employer] [facility] CPT-4: 55069 08/27/2018 ([id number]) OFFICE/OUTPATIENT VISIT EST Diagnosis: Acute recurrent sinusitis, unspecified[ICD10: J01.91] Diagnosis: Follicular disorder, unspecified[ICD10: L73.9] Diagnosis: Tinea corporis[ICD10: B35.4] María Elena [facility] CPT-4: 47729 08/09/2018 ([id number]) OFFICE/OUTPATIENT VISIT EST Diagnosis: Tinea corporis[ICD10: B35.4] Diagnosis: Anxiety disorder, unspecified[ICD10: F41.9] Diagnosis: Menopausal and female climacteric states[ICD10: N95.1] María Elena APPIA[facility] DO [facility] CPT-4: 02608 07/22/2018 ([id number]) NURSE/OUTPATIENT VISIT EST Diagnosis: Cellulitis of right toe[ICD10: L03.031] María Elena APPIA[facility] DO [facility] CPT-4: 88008 06/19/2018 ([id number]) OFFICE/OUTPATIENT VISIT EST Diagnosis: Cellulitis of right toe[ICD10: L03.031] Kathleen APPIAH DO [facility] CPT-4: 54363 06/17/2018 ([id number]) OFFICE/OUTPATIENT VISIT EST Diagnosis: Migraine without aura, intractable, without status migrainosus[ICD10: G43.019] Diagnosis: Zoster without complications[ICD10: B02.9] Kathleen APPIAH DO [facility] CPT-4: 36077 05/16/2018 ([id number]) OFFICE/OUTPATIENT VISIT EST Diagnosis: Cellulitis of right lower limb[ICD10: L03.115] Kathleen APPIAH DO [facility] CPT-4: 83316 03/20/2018 ([id number]) OFFICE/OUTPATIENT VISIT EST Diagnosis: Cellulitis of right lower limb[ICD10: L03.115] Kathleen APPIAH DO [facility] CPT-4: 85110 03/18/2018 ([id number]) OFFICE/OUTPATIENT VISIT EST Diagnosis: Cellulitis of right lower limb[ICD10: L03.115] Kathleen APPIAH DO [facility] CPT-4: 35109 03/15/2018 ([id number]) OFFICE/OUTPATIENT VISIT EST Diagnosis: Acute sinusitis, unspecified[ICD10: J01.90] Kathleen APPIA[facility] CPT-4: 55854 02/11/2018 ([id number]) NURSE/OUTPATIENT VISIT EST Diagnosis: Otitis media, unspecified, right ear[ICD10: H66.91] María Elena APPIAH [employer] [facility] CPT-4: 54958 02/01/2018 ([id number]) OFFICE/OUTPATIENT VISIT EST Diagnosis: Acute suppurative otitis media without spontaneous rupture of ear drum, left ear[ICD10: H66.002] Diagnosis: Abnormal weight gain[ICD10: R63.5] Diagnosis: Intervertebral disc disorders with radiculopathy, 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] Kathleen APPIAH DO [facility] CPT-4: 99 214 01/30/2018 ([id number]) PREV VISIT EST AGE 40-64 Diagnosis: Encounter for general adult medical examination without abnormal findings[ICD10: Z00.00] Diagnosis: Essential (primary) hypertension[ICD10: I10] Diagnosis: Mixed hyperlipidemia[ICD10: E78.2] Diagnosis: Type 2 diabetes mellitus with hyperglycemia[ICD10: E11.65] Diagnosis: 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] María Elena APPIAH [employer] [facility] CPT-4: 96557 12/18/2017 ([id number]) OFFICE/OUTPATIENT VISIT EST Diagnosis: Cellulitis of right toe[ICD10: L03.031] Diagnosis: Mixed hyperlipidemia[ICD10: E78.2] Diagnosis: Essential (primary) hypertension[ICD10: I10] Diagnosis: Hyperglycemia, unspecified[ICD10: R73.9] Diagnosis: Nontoxic goiter, 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] María Elena APPIAH [employer] [facility] CPT-4: 57972 12/10/2017 ([id number]) OFFICE/OUTPATIENT VISIT EST Diagnosis: Cellulitis of right toe[ICD10: L03.031] Diagnosis: Acute sinusitis, unspecified[ICD10: J01.90] Kathleen APPIA[facility] DO [facility] CPT-4: 40658 12/07/2017 OFFICE/OUTPATIENT VISIT EST Diagnosis: Acute maxillary sinusitis, unspecified[ICD10: J01.00] Kathleen APP[facility] CPT-4: 56712 10/08/2017 ([id number]) OFFICE/OUTPATIENT VISIT EST Diagnosis: Cellulitis of left toe[ICD10: L03.032] María Elena APP[facility] CPT-4: 67059 09/21/2017 ([id number]) OFFICE/OUTPATIENT VISIT EST Diagnosis: Insomnia, unspecified[ICD10: G47.00] Diagnosis: Major depressive disorder, single episode, unspecified[ICD10: F32.9] Diagnosis: Anxiety disorder, unspecified[ICD10: F41.9] Diagnosis: Cellulitis of left toe[ICD10: L03.032] Diagnosis: Snoring[ICD10: R06.83] Kathleen APPIAH DO [facility] CPT-4: 97787 09/20/2017 ([id number]) OFFICE/OUTPATIENT VISIT EST Diagnosis: Cellulitis of left toe[ICD10: L03.032] María Elena APPIAH DO [facility] CPT-4: 35761 07/19/2017 OFFICE/OUTPATIENT VISIT EST Diagnosis: Chronic sinusitis, unspecified[ICD10: J32.9] Diagnosis: Generalized hyperhidrosis[ICD10: R61] Kathleen APPIAH DO [facility] CPT-4: 41480 06/27/2017 ([id number]) OFFICE/OUTPATIENT VISIT EST Diagnosis: Intervertebral disc disorders with radiculopathy, 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] Diagnosis: Primary insomnia[ICD10: F51.01] Diagnosis: Other fatigue[ICD10: R53.83] María Elena [employer] MONTEROMARÍA ELENA [employer] [facility] CPT-4: 97050 04/10/2017 ([id number]) OFFICE/OUTPATIENT VISIT EST Diagnosis: Primary insomnia[ICD10: F51.01] Diagnosis: Localized edema[ICD10: R60.0] Diagnosis: 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] María Elena [employer] MONTEROMARÍA ELENA [employer] [facility] CPT-4: 71329 12/13/2016 ([id number]) OFFICE/OUTPATIENT VISIT EST Diagnosis: Primary insomnia[ICD10: F51.01] Diagnosis: Cyanosis[ICD10: R23.0] María Elenagael Bazzi [employer] [facility] CPT-4: 64535 11/01/2016 ([id number]) PREV VISIT EST AGE 40-64 Diagnosis: Encounter for gynecological examination (general) (routine) without abnormal findings[ICD10: Z01.419] Diagnosis: Encounter for routine child health examination without abnormal findings[ICD10: Z00.129] María Elena APPIAH DO [facility] CPT-4: 07636 10/17/2016 ([id number]) OFFICE/OUTPATIENT VISIT EST Diagnosis: Other seasonal allergic rhinitis[ICD10: J30.2] María Elena APPIAH DO [facility] CPT-4: 11575 10/10/2016 ([id number]) OFFICE/OUTPATIENT VISIT EST Diagnosis: Pain in left arm[ICD10: M79.602] Diagnosis: Contact with and (suspected) exposure to potentially hazardous body fluids[ICD10: Z77.21] Diagnosis: 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, 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] Diagnosis: Unspecified open wound, right foot, sequela[ICD10: S91.301S] María Elena APPIAH [employer] [facility] CPT-4: 74156 09/19/2016 ([id number]) OFFICE/OUTPATIENT VISIT EST Diagnosis: Chronic sinusitis, unspecified[ICD10: J32.9] Diagnosis: Allergic rhinitis due to pollen[ICD10: J30.1] María Elena APPIAH [facility] CPT-4: 26093 08/24/2016 ([id number]) OFFICE/OUTPATIENT VISIT EST Diagnosis: Acute bronchitis, unspecified[ICD10: J20.9] María Elena APPIAH [facility] CPT-4: 90269 08/16/2016 ([id number]) OFFICE/OUTPATIENT VISIT EST Diagnosis: Otitis media, unspecified, right ear[ICD10: H66.91] Diagnosis: Acute bronchitis, unspecified[ICD10: J20.9] María Elena APPIAH [facility] CPT-4: 24860 08/10/2016 ([id number]) OFFICE/OUTPATIENT VISIT EST Diagnosis: Acute recurrent sinusitis, unspecified[ICD10: J01.91] Diagnosis: Allergic rhinitis due to pollen[ICD10: J30.1] María Elena APPIAH [facility] CPT-4: 10843 08/02/2016 ([id number]) OFFICE/OUTPATIENT VISIT EST Diagnosis: Pain in unspecified joint[ICD10: M25.50] María Elena APPIAH DO [facility] CPT-4: 82850 07/27/2016 OFFICE/OUTPATIENT VISIT EST Diagnosis: 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] Diagnosis: Acute recurrent sinusitis, unspecified[ICD10: J01.91] Diagnosis: Other fatigue[ICD10: R53.83] Diagnosis: Primary insomnia[ICD10: F51.01] Diagnosis: Pain in unspecified joint[ICD10: M25.50] María Elena APPIAH [employer] [facility] CPT-4: 98473 07/20/2016 ([id number]) OFFICE/OUTPATIENT VISIT EST Diagnosis: Blister (nonthermal), left great toe, initial encounter[ICD10: S90.422A] Loan Gonzalo MARÍA ELENA APPIAH [employer] [facility] CPT-4: 05930 ([id number]) OFFICE/OUTPATIENT VISIT EST Diagnosis: Acute recurrent sinusitis, unspecified[ICD10: J01.91] María Elena APPIAH [employer] [facility] CPT-4: 06329 05/25/2016 ([id number]) OFFICE/OUTPATIENT VISIT EST Diagnosis: Acute sinusitis, unspecified[ICD10: J01.90] María Elena APPIAH DO [facility] CPT-4: 89677 04/26/2016 ([id number]) OFFICE/OUTPATIENT VISIT EST Diagnosis: Flushing[ICD10: R23.2] Diagnosis: Primary insomnia[ICD10: F51.01] María Elena APPIAH DO [facility] CPT-4: 05744 03/02/2016 ([id number]) OFFICE/OUTPATIENT VISIT EST Diagnosis: Other seasonal allergic rhinitis[ICD10: J30.2] Loan Sánchez [facility]A [facility] CPT-4: 28410 02/09/2016 ([id number]) OFFICE/OUTPATIENT VISIT EST Diagnosis: Primary insomnia[ICD10: F51.01] Diagnosis: Urinary tract infection, site not specified[ICD10: N39.0] María Elena APPIAH [facility] CPT-4: 44895 01/24/2016 ([id number]) OFFICE/OUTPATIENT VISIT EST Diagnosis: Other specified disorders of Eustachian tube, bilateral[ICD10: H69.83] Diagnosis: Allergic rhinitis, unspecified[ICD10: J30.9] Loan APPIAH [facility] CPT-4: 53912 12/23/2015 ([id number]) OFFICE/OUTPATIENT VISIT EST Diagnosis: Acute recurrent sinusitis, unspecified[ICD10: J01.91] Diagnosis: 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] Diagnosis: Allergic rhinitis, unspecified[ICD10: J30.9] María Elena APPIAH [facility] CPT-4: 30482 12/08/2015 ([id number]) OFFICE/OUTPATIENT VISIT EST Diagnosis: Allergic rhinitis, unspecified[ICD10: J30.9] Diagnosis: Pain in unspecified joint[ICD10: M25.50] María Elena APPIAH [facility] CPT-4: 48674 10/07/2015 ([id number]) OFFICE/OUTPATIENT VISIT EST Diagnosis: Essential (primary) hypertension[ICD10: I10] María Elena APPIAH [facility] CPT-4: 14998 10/06/2015 OFFICE/OUTPATIENT VISIT EST Diagnosis: Localized enlarged lymph nodes[ICD10: R59.0] Diagnosis: Local infection of the skin and subcutaneous tissue, unspecified[ICD10: L08.9] June Flores MARÍA ELENA APPIA[facility] CPT- 4: 75645 09/14/2015 ([id number]) OFFICE/OUTPATIENT VISIT EST Diagnosis: Essential (primary) hypertension[ICD10: I10] Diagnosis: Actinic keratosis[ICD10: L57.0] María Elena APPIAH [facility] CPT-4: 09503 09/07/2015 ([id number]) OFFICE/OUTPATIENT VISIT EST Diagnosis: Essential (primary) hypertension[ICD10: I10] Diagnosis: Acute stress reaction[ICD10: F43.0] María Elena APPIAH [facility] CPT-4: 60140 08/18/2015 ([id number]) OFFICE/OUTPATIENT VISIT EST Diagnosis: Essential (primary) hypertension[ICD10: I10] María Elena APPIAH [facility] CPT-4: 42891 07/07/2015 ([id number]) OFFICE/OUTPATIENT VISIT EST Diagnosis: Essential (primary) hypertension[ICD10: I10] María Elena APPIAH [facility] CPT-4: 76082 06/24/2015 ([id number]) OFFICE/OUTPATIENT VISIT EST Diagnosis: Essential (primary) hypertension[ICD10: I10] María Elena APPIAH [facility] CPT-4: 19656 06/21/2015 ([id number]) OFFICE/OUTPATIENT VISIT EST Diagnosis: Essential (primary) hypertension[ICD10: I10] Diagnosis: Mixed hyperlipidemia[ICD10: E78.2] Diagnosis: Acute stress reaction[ICD10: F43.0] Diagnosis: Primary insomnia[ICD10: F51.01] María Elena APPIAH [facility] CPT-4: 57464 06/16/2015 ([id number]) OFFICE/OUTPATIENT VISIT EST Diagnosis: INSOMNIA NOS[ICD9: 780.52] Diagnosis: HYPERTENSION[ICD9: 401.9] Diagnosis: Stress reaction[ICD9: 308.9] María Elena APPIAH [facility] CPT-4: 67728 06/02/2015 ([id number]) OFFICE/OUTPATIENT VISIT EST Diagnosis: HYPERTENSION[ICD9: 401.9] Diagnosis: Stress reaction[ICD9: 308.9] María Elena APPIAH [facility] CPT-4: 40529 05/20/2015 ([id number]) OFFICE/OUTPATIENT VISIT EST Diagnosis: Skin lesion[ICD9: 709.9] 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] María Elena APPIAH [facility] CPT-4: 87464 05/10/2015 ([id number]) OFFICE/OUTPATIENT VISIT EST Diagnosis: SINUSITIS, ACUTE[ICD9: 461.9] Diagnosis: ALLERGIC RHINITIS[ICD9: 477.9] Diagnosis: DERMATITIS NOS[ICD9: 692.9] María Elena REHMAN [facility] CPT-4: 62085 03/16/2015 OFFICE/OUTPATIENT VISIT EST Diagnosis: Otitis media[ICD9: 382.9] Diagnosis: SINUSITIS, ACUTE[ICD9: 461.9] June APPIAH [facility] CPT-4: 29674 09/11/2014 ([id number]) OFFICE/OUTPATIENT VISIT EST Diagnosis: HYPERLIPIDEMIA NEC/NOS[ICD9: 272.4] María Elena APPIAH [facility] CPT-4: 79029 08/31/2014 ([id number]) OFFICE/OUTPATIENT VISIT EST Diagnosis: - I - HYPERTENSION[ICD9: 401.9] Diagnosis: HYPERLIPIDEMIA NEC/NOS[ICD9: 272.4] María Elena [facility]IA[facility] CPT-4: 85239 08/27/2014 ([id number]) OFFICE/OUTPATIENT VISIT EST Diagnosis: ABDOMINAL PAIN[ICD9: 789.00] Diagnosis: DYSPEPSIA[ICD9: 536.8] Diagnosis: Thoracic back pain[ICD9: 724.1] María Elena APPIAH [facility] CPT-4: 68740 07/21/2014 ([id number]) OFFICE/OUTPATIENT VISIT EST Diagnosis: ALLERGIC RHINITIS[ICD9: 477.9] María Elena APPIAH [facility] CPT-4: 73610 07/15/2014 ([id number]) OFFICE/OUTPATIENT VISIT EST Diagnosis: EDEMA[ICD9: 782.3] Diagnosis: Chronic insomnia[ICD9: 780.52] María Elena APPIAH [facility] CPT-4: 25756 05/18/2014 ([id number]) OFFICE/OUTPATIENT VISIT EST Diagnosis: Thyromegaly[ICD9: 240.9] Diagnosis: - I - HYPERTENSION[ICD9: 401.9] Diagnosis: ROUTINE MEDICAL EXAM[ICD9: V70.0] Diagnosis: EDEMA[ICD9: 782.3] María Elena APPIAH [facility] CPT-4: 47208 05/14/2014 OFFICE/OUTPATIENT VISIT EST Diagnosis: BRONCHITIS, ACUTE[ICD9: 466.0] Diagnosis: SINUSITIS, ACUTE[ICD9: 461.9] María Elena APPIAH [facility] CPT-4: 56545 04/21/2014 OFFICE/OUTPATIENT VISIT EST Diagnosis: SINUSITIS, ACUTE[ICD9: 461.9] June VelozAlbertadaniella Hicks [facility] CPT-4: 44426 03/04/2014 ([id number]) OFFICE/OUTPATIENT VISIT EST Diagnosis: VACCINE FOR TDAP[ICD10: Z23] María Elena Hicks [facility] CPT-4: 48555 02/27/2014 ([id number]) OFFICE/OUTPATIENT VISIT EST Diagnosis: Seborrheic keratoses, inflamed[ICD9: 702.11] Diagnosis: ACTINIC KERATOSIS[ICD9: 702.0] Diagnosis: INSOMNIA NOS[ICD9: 780.52] [facility] C[facility]: 80302 01/13/2014 OFFICE/OUTPATIENT VISIT EST Diagnosis: EUSTACHIAN TUBE DYSFUNCTION[ICD9: 381.81] Diagnosis: ALLERGIC RHINITIS[ICD9: 477.9] Diagnosis: Serous otitis media[ICD9: 381.4] [facility]: 91053 12/24/2013 ([id number]) OFFICE/OUTPATIENT VISIT EST Diagnosis: SINUSITIS, ACUTE[ICD9: 461.9] Diagnosis: ALLERGIC RHINITIS[ICD9: 477.9] Diagnosis: EUSTACHIAN TUBE DYSFUNCTION[ICD9: 381.81] Mar[facility] CPT-[facility]: 08636 11/12/2013 ([id number]) OFFICE/OUTPATIENT VISIT EST Diagnosis: ALLERGIC RHINITIS[ICD9: 477.9] Diagnosis: SINUSITIS, ACUTE[ICD9: 461.9] María Elena APPIAH [facility] CPT-4: 59068 10/21/2013 ([id number]) OFFICE/OUTPATIENT VISIT EST Diagnosis: ASYMPTOMATIC VARICOSE VEINS[ICD9: 454.9] Diagnosis: INSOMNIA NOS[ICD9: 780.52] María Elena PANDYA [facility] CPT-4: 36437 09/22/2013 OFFICE/OUTPATIENT VISIT EST Diagnosis: SINUSITIS, ACUTE[ICD9: 461.9] uJne APPIAH [facility] CPT-4: 90349 08/27/2013 ([id number]) OFFICE/OUTPATIENT VISIT EST Diagnosis: CEPHALGIA[ICD9: 784.0] Diagnosis: CEPHALGIA, TENSION[ICD9: 307.81] 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] María Elena APPIAH [facility] CPT-4: 57669 08/04/2013 ([id number]) OFFICE/OUTPATIENT VISIT EST Diagnosis: Cervicalgia[ICD9: 723.1] Diagnosis: SPASM OF MUSCLE[ICD9: 728.85] Diagnosis: CEPHALGIA, TENSION[ICD9: 307.81] María Elena APPIAH [facility] CPT-4: 81258 07/23/2013 ([id number]) OFFICE/OUTPATIENT VISIT EST Diagnosis: EUSTACHIAN TUBE DYSFUNCTION[ICD9: 381.81] Diagnosis: ALLERGIC RHINITIS[ICD9: 477.9] María Elena APPIAH [facility] CPT-4: 35931 06/23/2013 ([id number]) OFFICE/OUTPATIENT VISIT EST Diagnosis: ALLERGIC RHINITIS[ICD9: 477.9] Diagnosis: ACUTE SEROUS OTITIS MEDIA[ICD9: 381.01] Diagnosis: EUSTACHIAN TUBE DYSFUNCTION[ICD9: 381.81] María Elena APPIAH [facility] CPT-4: 13282 05/26/2013 ([id number]) OFFICE/OUTPATIENT VISIT EST Diagnosis: HYPERTENSION[ICD9: 401.9] Diagnosis: EDEMA[ICD9: 782.3] Diagnosis: Serous otitis media[ICD9: 381.4] María Elena JUARES LucioJj [facility] CPT-[facility]: 47170 04/16/2013 ([id number]) OFFICE/OUTPATIENT VISIT EST Diagnosis: SINUSITIS, ACUTE[ICD9: 461.9] Diagnosis: ALLERGIC RHINITIS[ICD9: 477.9] Diagnosis: EDEMA[ICD9: 782.3] Diagnosis: Thyromegaly[ICD9: 240.9] Diagnosis: MALAISE AND FATIGUE[ICD9: 780.79] María Elena Lopez [facility] CPT-4: 06551 03/05/2013 ([id number]) OFFICE/OUTPATIENT VISIT EST Diagnosis: PAIN, LOWER BACK[ICD9: 724.2] Diagnosis: SPASM OF MUSCLE[ICD9: 728.85] María Elena JUARES LucioJj [facility] CPT-4: 69130 12/23/2012 OFFICE/OUTPATIENT VISIT EST Diagnosis: Low back pain[ICD9: 724.2] Lashawn Hicks [facility] CPT-4: 68099 12/16/2012 ([id number]) OFFICE/OUTPATIENT VISIT EST Diagnosis: PAIN, LOWER BACK[ICD9: 724.2] Diagnosis: SCIATICA[ICD9: 724.3] Diagnosis: Lumbar herniated disc[ICD9: 722.10] María Elena COLON Fabiola [facility] CPT-4: 26751 12/09/2012 ([id number]) OFFICE/OUTPATIENT VISIT EST Diagnosis: PAIN, LOWER BACK[ICD9: 724.2] Diagnosis: SCIATICA[ICD9: 724.3] Diagnosis: LUMBAR DISC DISPLACEMENT[ICD9: 722.10] María Elena MARIN LucioJj [facility] CPT[facility]: 52481 12/04/2012 OFFICE/OUTPATIENT VISIT EST Diagnosis: Pneumonia[ICD9: 486] Mary JUARES LucioJj [facility] CPT[facility]: 30548 11/22/2012 ([id number]) OFFICE/OUTPATIENT VISIT EST Diagnosis: PNEUMONIA, ORGANISM[ICD9: 486] Diagnosis: Exacerbation of RAD (reactive airway disease)[ICD9: 493.92] María Elena APPIAH [facility] CPT-4: 90485 11/21/2012 OFFICE/OUTPATIENT VISIT EST Diagnosis: HYPERTENSION[ICD9: 401.9] Diagnosis: Cephalgia[ICD9: 784.0] Lashawn APPIAH [facility] CPT-4: 64772 10/29/2012 ([id number]) OFFICE/OUTPATIENT VISIT EST Diagnosis: MALAISE AND FATIGUE[ICD9: 780.79] Diagnosis: ARTHRALGIA-MULTIPLE SITES[ICD9: 719.49] María Elena APPIAH [facility] CPT-4: 26686 10/14/2012 ([id number]) OFFICE/OUTPATIENT VISIT EST Diagnosis: URINARY FREQUENCY[ICD9: 788.41] María Elena ValdesJj TD [facility] CPT-4: 05379 09/27/2012 ([id number]) OFFICE/OUTPATIENT VISIT EST Diagnosis: MALAISE AND FATIGUE[ICD9: 780.79] Diagnosis: ARTHRALGIA-MULTIPLE SITES[ICD9: 719.49] María Elena ValdesJj TD [facility] CPT-4: 81848 09/25/2012 ([id number]) OFFICE/OUTPATIENT VISIT EST Diagnosis: SINUSITIS, ACUTE[ICD9: 461.9] Diagnosis: EUSTACHIAN TUBE DYSFUNCTION[ICD9: 381.81] María Elena ValdesJj TD [facility] CPT-4: 35292 08/29/2012 OFFICE/OUTPATIENT VISIT EST Diagnosis: ACTINIC KERATOSIS[ICD9: 702.0] Diagnosis: Inflamed seborrheic keratosis[ICD9: 702.11] Diagnosis: Skin cancer of face[ICD9: 173.31] Diagnosis: HYPERTENSION[ICD9: 401.9] María Elena Waymindivictorino ValdesJj [facility] CPT-4: 45164 08/12/2012 ([id number]) OFFICE/OUTPATIENT VISIT EST Diagnosis: ARTHRALGIA-MULTIPLE SITES[ICD9: 719.49] Diagnosis: GOUT[ICD9: 274.9] Diagnosis: HYPERTENSION[ICD9: 401.9] Diagnosis: Tachycardia[ICD9: 785.0] María Elena Oredawn JUARES LucioJj FRITZ KARLOS [facility] CPT-4: 75175 05/06/2012 ([id number]) OFFICE/OUTPATIENT VISIT EST Diagnosis: INSOMNIA NOS[ICD9: 780.52] María Elena Seamusdawn JUARES LucioJj KRISTYN PANDYA [facility] CPT-4: 82103 04/03/2012 ([id number]) OFFICE/OUTPATIENT VISIT EST Diagnosis: INSOMNIA NOS[ICD9: 780.52] Diagnosis: HYPERTENSION[ICD9: 401.9] Diagnosis: MIGRAINE NOS/NOT INTRCBL[ICD9: 346.90] María Elena Seamusdawn MARIN LucioJj [facility] CPT-4: 71286 03/19/2012 ([id number]) OFFICE/OUTPATIENT VISIT EST Diagnosis: CELLULITIS[ICD9: 682.9] Diagnosis: Ankle pain[ICD9: 719.47] Diagnosis: HYPERTENSION[ICD9: 401.9] María Elena Seamusdawn JUARES LucioJj SEAMUS NDERose Mary [facility] CPT-4: 95433 02/20/2012 ([id number]) OFFICE/OUTPATIENT VISIT EST Diagnosis: MIGRAINE NOS/NOT INTRCBL[ICD9: 346.90] Diagnosis: Vomiting[ICD9: 787.03] María Elenamarcella Hicks SEAMUSGALINA R [facility] CPT-4: 49971 01/30/2012 ([id number]) OFFICE/OUTPATIENT VISIT EST Diagnosis: EDEMA[ICD9: 782.3] Diagnosis: HYPERTENSION[ICD9: 401.9] Diagnosis: ALLERGIC RHINITIS[ICD9: 477.9] Diagnosis: ARTHRALGIA-MULTIPLE SITES[ICD9: 719.49] María Elena REED LucioJj TD [facility] CPT-4: 30337 01/24/2012 ([id number]) OFFICE/OUTPATIENT VISIT EST Diagnosis: SPASM OF MUSCLE[ICD9: 728.85] Diagnosis: Thoracic back pain[ICD9: 724.1] Diagnosis: Cervical pain[ICD9: 723.1] María Elena Hicks KRISTYN PANDYA [facility] CPT-4: 27144 01/10/2012 OFFICE/OUTPATIENT VISIT EST Diagnosis: PAIN, LOWER BACK[ICD9: 724.2] Diagnosis: LUMBAR DISC DISPLACEMENT[ICD9: 722.10] María Elena MONTEROQ TANIA ValdesJj TD [facility] CPT-4: 07914 12/11/2011 OFFICE/OUTPATIENT VISIT EST Diagnosis: MIGRAINE NOS/NOT INTRCBL[ICD9: 346.90] Diagnosis: SINUSITIS, ACUTE[ICD9: 461.9] María Elena ValdesJj TD [facility] CPT-4: 29226 11/09/2011 OFFICE/OUTPATIENT VISIT EST Diagnosis: MIGRAINE NOS/NOT INTRCBL[ICD9: 346.90] Diagnosis: LYMPHADENOPATHY[ICD9: 785.6] María Elena ELLISLINE LucioJj TD [facility] CPT-4: 53050 09/13/2011 OFFICE/OUTPATIENT VISIT EST Diagnosis: MALAISE AND FATIGUE[ICD9: 780.79] Diagnosis: ARTHRALGIA-MULTIPLE SITES[ICD9: 719.49] María Elena Seamusdawn REED LucioJj TD [facility] CPT-4: 49315 08/31/2011 OFFICE/OUTPATIENT VISIT EST Diagnosis: SINUSITIS, ACUTE[ICD9: 461.9] María Elena Waydawn MARÍA ELENA LucioJj TD [facility] CPT-4: 48475 07/20/2011 OFFICE/OUTPATIENT VISIT EST Diagnosis: HYPERTENSION[ICD9: 401.9] Diagnosis: PAIN, LOWER BACK[ICD9: 724.2] Diagnosis: SPASM OF MUSCLE[ICD9: 728.85] María Elena ValdesJj TD [facility] CPT-4: 94647 07/06/2011 OFFICE/OUTPATIENT VISIT EST Diagnosis: MIGRAINE NOS/NOT INTRCBL[ICD9: 346.90] Diagnosis: HYPERTENSION[ICD9: 401.9] María Elena Seamusdawn Hicks SEAMUS DAWN [facility] CPT-4: 29554 05/22/2011 OFFICE/OUTPATIENT VISIT EST Diagnosis: SINUSITIS, ACUTE[ICD9: 461.9] Diagnosis: MIGRAINE NOS/NOT INTRCBL[ICD9: 346.90] Diagnosis: Dehydration[ICD9: 276.51] Diagnosis: Vomiting[ICD9: 787.03] María Elena Bazzi [facility] CPT-4: 64298 05/09/2011 ([id number]) OFFICE/OUTPATIENT VISIT EST María Elenamarcella Waynder [facility] CPT-4: 56388 02/14/2011 ([id number]) OFFICE/OUTPATIENT VISIT EST María Elenamarcella Ortaer [facility] CPT-4: 80520 02/03/2011 ([id number]) OFFICE/OUTPATIENT VISIT EST María Elenamarcella Ortaer [facility] CPT-4: 95004 01/31/2011 ([id number]) OFFICE/OUTPATIENT VISIT EST María Elenamarcella Ortaer [facility] CPT-4: 51697 01/25/2011 ([id number]) OFFICE/OUTPATIENT VISIT EST María Elenamarcella Waynder [facility] CPT-4: 34678 01/18/2011 ([id number]) OFFICE/OUTPATIENT VISIT EST María Elenamarcella Ortaer [facility] CPT-4: 14252 11/29/2010 ([id number]) OFFICE/OUTPATIENT VISIT, EST María Elenamarcella Ortaer [facility] CPT-4: 03898 10/10/2010 ([id number]) OFFICE/OUTPATIENT VISIT, EST María Elenamarcella Ortaer [facility] CPT-4: 52148 06/07/2010 ([id number]) OFFICE/OUTPATIENT VISIT, EST María Elenamarclela Ortaer [facility] CPT-4: 93160 04/27/2010 ([id number]) OFFICE/OUTPATIENT VISIT, EST María Elenamarcella Ortaer [facility] CPT-4: 55705 04/05/2010 ([id number]) OFFICE/OUTPATIENT VISIT, EST María Elena Seamusnder [facility] CPT-4: 76356 03/09/2010 ([id number]) OFFICE/OUTPATIENT VISIT, EST María Elena Seamusnder [facility] CPT-4: 55725 03/03/2010 ([id number]) OFFICE/OUTPATIENT VISIT, EST María Elenamarcella Ortaer [facility] CPT-4: 47063 01/17/2010 ([id number]) PREV VISIT, EST, AGE 40-64 María Elena Waydawn DARLIN APPIAH [facility] CPT-4: 40676 12/27/2009 Plan of Care Planned Activity Notes [...] : E11.65 10/07/2019 Appointment: Kathleen Zuniga [address] [place], [place] [id number] OFFICE SURGERY 10/07/2019 Visit Diagnosis [...] 09/30/2019 Appointment: María Elena Appiah WPtel: [address] [place], [place] [phone] [place] CHECK UP 09/30/2019 Patient Education: Premarin- Opt[employer] Coupon [id number] https://www.Lot18/[place]/resources/getResource/61/43278a77-a662-2hmk-j1 Completed 09/30/2019 Appointment: María Elena Appiah WPtel: [address] [place], [place] [phone] [place] LAB 09/29/2019 Appointment: María Elena Appiah WPtel: [address] [place], [place] [phone] [place] Won't have the new insurance till [...] 05/28/2019 Appointment: María Elena Appiah WPtel: [address] [place], [place] [phone] [place] FOLLOW UP 05/28/2019 Appointment: María Elena Appiah WPtel: [address] [place], [place] [phone] [place] BP CHECK 05/19/2019 Visit Diagnosis Plan: [...] Z79.890 01/22/2019 Appointment: María Elena Appiah WPtel: [address] [place], [place] [address] [place] FOLLOW UP 01/22/2019 Patient Education: estradiol- [employer] Coupon [id number] https://www.Lot18/[place]/resources/getResource/61/629l537z-8ty3-0r57-7z Completed 01/22/2019 Appointment: María Elena Appiah WPtel: [address] [place] [address] [place] CANCELED 01/20/2019 Appointment: María Elena Appiah WPtel: [address] [place] [address] [place] LM NO SHOW 01/06/2019 Appointment: María Elena Appiah WPtel: [address] [place] [address] [place] CANCELED 10/17/2018 Appointment: María Elena Appiah WPtel: [address] [place] [address] US BP CHECK 10/09/2018 Visit Diagnosis Plan: [...] I10 09/30/2018 Appointment: María Elena Appiah WPtel: [address] [place] [address] [place] FOLLOW UP 09/30/2018 Visit Diagnosis Plan: [...] 08/27/2018 Appointment: María Elena Appiah WPtel: [address] [place] [address] ACUTE ILLNESS 08/27/2018 Appointment: María Elena Appiah WPtel: [address] [place] [address] [place] Patient stated she went out to [...] Tyle... 08/09/2018 Appointment: María Elena Appiah WPtel: [address] [place], [place] [id number] ACUTE ILLNESS 08/09/2018 Appointment: María Elena Appiah WPtel: [address] [place], [place] [phone] NO SHOW 08/08/2018 Visit Diagnosis Plan: Anxiety [...] 07/22/2018 Appointment: María Elena Appiah WPtel: [address] [place] [address] ACUTE ILLNESS 07/22/2018 Appointment: María Elena Appiah WPtel: [address] [place] [address] [place] INJECTION 06/19/2018 Patient Education: Patient Medication [...] : L03.031 06/17/2018 Appointment: Kathleen Zuniga [address] [place] [address] ACUTE ILLNESS 06/17/2018 Patient Education: Patient Medication [...] ICD-10 : B02.9 05/16/2018 Appointment: Kathleen Zuniga [address] [place], [place] [id number] ACUTE ILLNESS 05/16/2018 Patient Education: Patient Medication [...] : L03.115 03/20/2018 Appointment: Kathleen Zuniga [address] [place] [address] FOLLOW UP 03/20/2018 Patient Education: Patient Medication [...] : L03.115 03/18/2018 Appointment: Kathleen Zuniga [address] [place], [place] [address] FOLLOW UP 03/18/2018 Patient Education: Patient Medication [...] : L03.115 03/15/2018 [facility]ment[facility] [facility] 03/15/2018 Patient Education: [...] : J01.90 02/11/2018 Appointment: Kathleen Zuniga [address] [facility] ACUTE ILLNESS 02/11/2018 Patient Education: Patient Medication Summary Completed 02/11/2018 Appointment: María Elena Appiah WPtel: [phone] [facility] INJECTION 02/01/2018 Patient Education: Patient Medication [...] : M51.16 01/30/2018 Appointment: Kathleen Zuniga [address] [facility] ACUTE ILLNESS 01/30/2018 Patient Education: Patient Medication [...] E11.65 12/18/2017 Appointment: María Elena Appiah WPtel: [facility] Annual Well Visit 12/18/2017 Patient Education: Patient Medication Summary Completed 12/18/2017 Care Plan: Referral Order SNOMED-CT : [id number] Pending 12/18/2017 Appointment: María Elena Appiah WPtel: [phone] [facility] [place] INJECTION 12/10/2017 Patient Education: Patient [...] ICD-10 : L03.031 12/07/2017 Appointment: Kathleen Zuniga [address] [place], [place] [id number] ACUTE ILLNESS 12/07/2017 Patient Education: [...] ICD-10 : J01.00 10/08/2017 Appointment: Kathleen Zuniga [address] [place], [place] [address] ACUTE ILLNESS 10/08/2017 Patient Education: Patient Medication Summary Completed 10/08/2017 Appointment: María Elena Appiah WPtel: [phone] [facility] INJECTION 09/21/2017 Patient Education: Patient Medication [...] 786.09 ICD-10 : R06.83 09/20/2017 Appointment: Kathleen Zungia [address] [place], [place] [phone] ACUTE ILLNESS 09/20/2017 Patient Education: [...] ICD-10 : L60.0 08/29/2017 Appointment: Kathleen Zuniga [address] [place], [place] [phone] OFFICE SURGERY 08/29/2017 Patient Education: Patient Medication Summary Completed 08/29/2017 Visit Diagnosis Plan: Actinic keratosis Discussion: Cr yotherapy as above ICD-9 : 702.0 ICD-10 : L57.0 08/01/2017 Appointment: María Elena Appiah WPtel: [phone] [facility] OFFICE SURGERY 08/01/2017 Patient Education: Patient Medication Summary Completed 08/01/2017 Appointment: María Elena Appiah WPtel: [phone] [facility] [place] PATIENT THOUGHT APPOINTMENT WAS TOMORROW 07/26/17 CALLED 15 MINUTES BEFORE APPT TO SAY SHE DIDN'T HAVE ANYONE TO COVER HER BUSINESS AND WOULD NOT MAKE IT NO SHOW 07/25/2017 Visit Diagnosis Plan: Cellulitis of left toe Discussio n: Clindamycin and notify if worsening or persistis ICD-9 : 681.10 ICD-10 : L03.032 07/19/2017 Appointment: [phone] [facility] [facility] MEDICATION REVIEW 07/19/2017 Patient Education: Patient Medication Summary Completed 07/19/2017 Appointment: María Elena [facility] [phone] [facility] [facility] CANCELED 07/04/2017 Visit Diagnosis Plan: Generalized hyperhidrosis Discus ian: CBC, CMP, TSH, free T4 ordered to assess. will review labs. ICD-9 : 780.8 ICD-10 : R61 06/27/2017 Visit Diagnosis Plan: Chronic sinusitis, unspecified D iscussion: Referral sent to dr. albar[place] per patient request. patient has been treated multiple times for sinus infections with no recovery. patient was seen by dr sanchez in the past with no interventions. patient has deviated septum which may be affecting her sinuses. 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, including hip Discussion: Shave removal of above lesio n--sent to pathology ICD-9 : 216.7 ICD-10 : D23.72 01/24/2017 Appointment: María Elena Appiah WPtel: [address] [place], [place] [phone] 01/23 confirmed ~sl OFFICE SURGERY 01/24/2017 Patient Education: Patient Medication Summary Completed 01/24/2017 Appointment: Gonzalo Loan [address] [place] [address] 01/09 rescheduled~sl RESCHEDULED 01/15/2017 Visit Diagnosis Plan: [...] 12/13/2016 Appointment: María Elena Appiah WPtel: [address] [place], [place] [phone] [place] 12/12 confirmed ~sl MEDICATION REVIEW 12/13/2016 Patient Education: Patient Medication Summary Completed 12/13/2016 Appointment: María Elena Appiah WPtel: [address] [place], [place] [phone] [place] rescheduled for 12/13/16 at 11am RESCHEDULED 0 12/06/2016 Appointment: María Elena [facility] [phone] [facility] [facility] CANCELED 11/23/2016 Patient [...] F51.01 11/01/2016 Appointment: María Elena Appiah [facility]Ptel[facility] [place] 10/31 lm `sl 11/01 lm`sl MEDICATION REVIEW 017 Patient Education: Patient Medication Summary Completed 11/01/2016 Referral: Canelo Overton WPtel: [phone] [id number] [place] Referral Initiated 10/30/2016 Visit Diagnosis Plan: [...] Z01.419 10/17/2016 Appointment: María Elena Appiah WPtel: [address] [place] [address] [place] 10/16 confirmed ~sl PAP 10/17/2016 Patient Education: Patient Medication Summary Completed 10/17/2016 Care Plan: MAMMOGRAM SCREENING LOINC : 2 6347-5 Pending 10/17/2016 Visit Diagnosis Plan: Other seasonal allergic rhinitis Discussion: Decadron/Garamycin Nasal Marion Mix Too soon for steroid Retry zyrtec 10mg daily ICD-9 : 477.9 ICD-10 : J30.2 10/10/2016 Appointment: María Elena Appiah WPtel: [address] [place], [place] [phone] FOLLOW UP 10/10/2016 Patient Education: Patient Medication Summary Completed 10/10/2016 Appointment: María Elena Appiah WPtel: [address] [place], [place] [id number] 10/02 reschedule `sl RESCHEDULED 10/02/2016 Visit Plan: See surgery for removal of n ew left arm lesion and right foot lesion Lyrica to use next month for left arm paresthesias Continue current meds Discussed sunscreen/sunblock combo 09/19/2016 Appointment: María Elena Appiah WPtel: [address] [place] [address] 09/18 confirmed ~sl FOLLOW UP 09/19/2016 Patient Education: Patient Medication Summary Completed 09/19/2016 Patient Education: Patient Medication Summary Completed 09/18/2016 Care Plan: MAMMOGRAM BOTH BREASTS LOINC : 66295-6 Pending 09/18/2016 Visit Plan: Discussed that needs [...] 08/24/2016 Appointment: María Elena Appiah WPtel: [address] [place], [place] [phone] 08/24/2016 Patient Education: Patient Medication Summary Completed 08/24/2016 Patient Education: Patient Medication Summary Completed 08/23/2016 Care Plan: MAMMOGRAM SCREENING LOINC : 2 6347-5 Pending 08/23/2016 Visit Plan: Finish doxycycline Add Breo 100/25 1 p BID for 2 weeks If not improving within next 2 days will get CXR 08/16/2016 Appointment: María Elena Appiah WPtel: [address] [place] [address] ACUTE ILLNESS 08/16/2016 Patient Education: Patient Medication Summary Completed 08/16/2016 Visit Plan: Supportive care. Rest, Fluid s, Tylenol/Motrin prn fever or bodyaches. Notify if worsening symptoms. Doxycyline and Prednisone 08/10/2016 Appointment: María Elena Appiah WPtel: [address] [place] [address] 08/09 lm`sl....confirmed-sp FOLLOW UP 09/2015 Patient Education: Patient Medication Summary Completed 08/10/2016 Visit Plan: Saline nasal flushes prn. Ty lenol/Motrin prn headache. Notify if persists/symptoms worsening. Dexamethasone 8mg IM today May use coricedan and mucinex 08/02/2016 Appointment: María Elena Appiah WPtel: [address] [place] [address] ACUTE ILLNESS 08/02/2016 Patient Education: Patient Medication Summary Completed 08/02/2016 Visit Plan: Cryotherapy as above and lef t forearm lesion removal as above with 5-0 punch biopsy and sent to path Return in 10 days for suture removal 08/01/2016 Appointment: María Elena Appiah WPtel: [address] [place] [address] 07/31 confirmed`~sl OFFICE SURGERY 08/01/2016 Patient Education: Patient Medication Summary Completed 08/01/2016 Visit Plan: Stop clindamycin Check CBC, CMP, ESR now/STAT 07/27/2016 Appointment: María Elena Appiah WPtel: [address] [place] [address] ACUTE ILLNESS 07/27/2016 Patient Education: Patient Medication Summary Completed 07/27/2016 Visit Plan: Update lab and check ABIs to start with Will likely need cardiology evaluation to rule out PVD Clindamycin for 10 days Daily yogurt or probiotic Will return for removal of left arm lesions 07/20/2016 Appointment: María Elena Appiah WPtel: [address] [place], [place] [phone] ACUTE ILLNESS 07/20/2016 Patient Education: Patient Medication Summary Completed 07/20/2016 Patient Education: Patient Medication Summary Completed 07/20/2016 Care Plan: MAMMOGRAM BOTH BREASTS LOINC : 89520-3 Pending 07/20/2016 Care Plan: US EXAM CHEST LOINC : 97962-3 Pending 07/20/2016 Visit Plan: Wound culture collected from left great toe Appearance is somewhat staph like Rx as above Wound cleanser and skin care reviewed May need to add oral antibiotic if sores do not heal or continue to reoccur 07/06/2016 Appointment: Loan Sánchez [address] [place] [address] ACUTE ILLNESS 07/06/2016 Patient Education: Patient Medication Summary Completed 07/06/2016 Appointment: María Elena Appiah WPtel: [address] [place], [place] [phone] [place] INJECTION 05/25/2016 Patient Education: Patient Medication Summary Completed 05/25/2016 Visit Plan: Saline nasal flushes prn. Ty lenol/Motrin prn headache. Notify if persists/symptoms worsening. Dexamethasone and Rocephin given 04/26/2016 Appointment: María Elena Appiah WPtel: [address] [place], [place] [phone] ACUTE ILLNESS 04/26/2016 Patient Education: Patient Medication Summary Completed 04/26/2016 Visit Plan: Check CBC, CMP, TSH, FreeT4, HbA1C, estradiol, lipids in AM 03/02/2016 Appointment: María Elena Appiah WPtel: [address] [place], [place] [phone] 03/01 lm~sl ACUTE ILLNESS 03/02/2016 Patient Education: Patient Medication Summary Completed 03/02/2016 Visit Plan: Exam is nearly normal Needs to be taking daily antihistamine Would prefer to use oral steroids instead of shot but patient insist that oral steroids cause horrible headaches for her Will given kenalog IM instead 02/09/2016 Appointment: Loan Sánchez [address] [place] [address] ACUTE ILLNESS 02/09/2016 Patient Education: Patient Medication Summary Completed 02/09/2016 Visit Plan: Culture urine Macrobid DC xa nax Trial of Ativan 1mg q HS 01/24/2016 Appointment: María Elena Appiah WPtel: [address] [place] [address] ACUTE ILLNESS 01/24/2016 Patient Education: Patient Medication Summary Completed 01/24/2016 Visit Plan: No steroid or rocephin injec tion warranted Can have oral prednisone Continue current home regimen Needs to follow up with Dr Sanchez if problems persist 12/23/2015 Appointment: Loan Sánchez [address] [place] [address] ACUTE ILLNESS 12/23/2015 Patient Education: Patient Medication Summary Completed 12/23/2015 Visit Plan: Saline nasal flushes prn. Ty lenol/Motrin prn headache. Notify if persists/symptoms worsening. Kenalog 40mg IM today 12/08/2015 Appointment: María Elena Appiah WPtel: [address] [place] [address] 12/06 confirmed~ ACUTE ILLNESS 12/08/2015 Patient Education: Patient Medication Summary Completed 12/08/2015 Appointment: María Elena Appiah WPtel: [address] [place] [address] ACUTE ILLNESS 11/18/2015 Patient Education: Patient Medication Summary Completed 10/11/2015 Appointment: María Elena Appiah WPtel: [address] [place] [address] [place] INJECTION 10/07/2015 Patient Education: Patient Medication Summary Completed 10/07/2015 Visit Plan: Check renal arterial doppler s and ECHO Change amlodopine to lotrel 5/20mg q HS Will need stress test as well Check CMP, uric acid, ESR 10/06/2015 Appointment: María Elena Appiah WPtel: [address] [place] [address] ACUTE ILLNESS 10/06/2015 Patient Education: Patient Medication Summary Completed 10/06/2015 Patient Education: [facility] - Saving AutoInj - Amlodipine Besylate - 18-64 - Dynamic Portal ID Completed 10/06/2015 Appointment: María Elena Appiah WPtel: [address] [place], [place] [phone] [place] FOLLOW UP 09/22/2015 Visit Plan: Cephalexin 500 mg PO bid Mery ly topical Mupirocin to lesions on left lateral neck and face Follow-up in one week. Sooner if symptoms worsen 09/14/2015 Appointment: June Flores WPtel: [address] [place] [address] ACUTE ILLNESS 09/14/2015 Patient Education: Patient Medication Summary Completed 09/14/2015 Visit Plan: Change bystolic to bedtime d osing and amlodopine to morning dosing Cryotherapy as above to AKs 09/07/2015 Appointment: María Elena Appiah WPtel: [address] [place], [place] [phone] 09/06 appointment made and confirmed ~ FOLLOW UP 09/07/2015 Patient Education: Patient Medication Summary Completed 09/07/2015 Visit Plan: Increase bystolic back to 20 mg daily but will split and take 10mg in AM and 10mg in PM Stress Reducers 08/18/2015 Appointment: María Elena Appiah WPtel: [address] [place], [place] [phone] 08/17/15 appt confirmed cn ACUTE ILLNESS 08/18 Patient Education: Patient Medication Summary Completed 08/18/2015 Appointment: María Elena Appiah WPtel: [address] [place], [place] [phone] BP CHECK 07/07/2015 Patient Education: Patient Medication Summary Completed 07/07/2015 Appointment: María Elena Appiah WPtel: [address] [place], [place] [phone] BP CHECK 06/24/2015 Patient Education: Patient Medication Summary Completed 06/24/2015 Appointment: María Elena Appiah WPtel: [address] [place] [address] BP CHECK 06/21/2015 Patient Education: Patient Medication Summary Completed 06/21/2015 Visit Plan: Lab discussed Continue curre nt meds and lifestyle modification Recheck lab in 6mos 06/16/2015 Appointment: María Elena Appiah WPtel: [address] [place] [address] 06/15 confirmed FOLLOW UP 06/16/2015 Patient Education: Patient Medication Summary Completed 06/16/2015 Patient Education: Patient Medication Summary Completed 06/15/2015 Visit Plan: Increase cymbalta to 60mg q HS Keep clonidine at current dose Recheck 2weeks Change xanax to klonopin 06/02/2015 Appointment: María Elena Appiah WPtel: [address] [place] [address] 06/02 lm FOLLOW UP 06/02/2015 Patient Education: Patient Medication Summary Completed 06/02/2015 Appointment: María Elena Appiah WPtel: [address] [place] [address] ACUTE ILLNESS 05/24/2015 Visit Plan: Increase clonidine to 0.2mg q HS Add cymbalta 30mg q HS Recheck 2weeks Stress Reducers Check fasting lab Discussed sleep study 05/20/2015 Appointment: María Elena Appiah WPtel: [address] [place] [address] ACUTE ILLNESS 05/20/2015 Patient Education: Patient Medication Summary Completed 05/20/2015 Patient Education: [facility] - Saving [employer]j - Cymbalta - 18-64 - Dynamic Portal ID Completed 05/20/2015 Appointment: María Elena Appiah WPtel: [address] [place] [address] BP CHECK 05/19/2015 Patient Education: Patient Medication Summary Completed 05/19/2015 Visit Plan: Topical Bactroban alternatin g with topical betamethasone Recheck 2weeks 05/10/2015 Appointment: María Elena Appiahl: [address] [place], [place] [phone] 05/07 vm cn...05/07 appt confirmed OFFICE SURGER Y 05/10/2015 Patient Education: Patient Medication Summary Completed 05/10/2015 [facility]: [id number] Referral Initiated 05/04/2015 Visit Plan: Saline nasal flushes prn. Ty lenol/Motrin prn headache. Notify if persists/symptoms worsening. Depomedrol 40mg IM today 03/16/2015 Appointment: María Elena Appiah WPtel: [address] [place] [address] ACUTE ILLNESS 03/16/2015 Patient Education: Patient Medication Summary Completed 03/16/2015 Appointment: María Elena Appiah WPtel: [address] [place] [address] ER Follow UP 03/09/2015 Visit Plan: Cryotherapy to lesions as ab ove 10/27/2014 Appointment: María Elena Appiah WPtel: [address] [place] [address] OFFICE SURGERY 10/27/2014 Patient Education: Patient Medication Summary Completed 10/27/2014 Appointment: June Flores WPtel: [address] [place] [address] ACUTE ILLNESS 09/11/2014 Patient Education: Patient Medication Summary Completed 09/11/2014 Visit Plan: Lab discussed Lipitor 10mg d aily Coenzyme Q-10 400mg daily Vitamin D3 5000u daily Recheck lipids with LFTs in 3mos then fwup 08/31/2014 Appointment: María Elena Appiah WPtel: [address] [place] [address] 08/28 voicemail FOLLOW UP 08/31/2014 Patient Education: Patient Medication Summary Completed 08/31/2014 Appointment: María Elena Appiah WPtel: [address] [place], [place] [phone] 08/27/2014 Appointment: María Elena Appiah WPtel: [address] [place] [address] LAB 08/27/2014 Patient Education: Patient Medication Summary Completed 08/27/2014 Appointment: María Elena Appiah WPtel: [address] [place] [address] ACUTE ILLNESS 07/23/2014 Appointment: María Elena Appiah WPtel: [address] [place] [address] ACUTE ILLNESS 07/21/2014 Patient Education: Patient Medication Summary Completed 07/21/2014 Visit Plan: Kenalog 40mg IM today Contin ue narendra and singulair Add Flonase 07/15/2014 Appointment: María Elena Appiah WPtel: [address] [place] [address] ACUTE ILLNESS 07/15/2014 Appointment: María Elena Appiah WPtel: [address] [place] [address] ACUTE ILLNESS 07/15/2014 Patient Education: Patient Medication Summary Completed 07/15/2014 Visit Plan: Will do metolazone 2.5mg prn with 6 potassium and see if causes as severe cramping Trial of of seroquel XR 50mg q PM with evening meal and let us know how works 05/18/2014 Appointment: María Elena Appiah WPtel: [address] [place] [address] 05/15 left message FOLLOW UP 05/18/2014 Patient Education: Patient Medication Summary Completed 05/18/2014 Appointment: María Elena Appiah WPtel: [address] [place], [place] [phone] 05/14/2014 Patient Education: Patient Medication Summary Completed 05/14/2014 Appointment: María Elena Appiah WPtel: [address] [place], [place] [phone] [place] INJECTION 04/22/2014 Visit Plan: Tisha and Miranda today a nd finish abx given from urgent care 04/21/2014 Appointment: María Elena Appiah WPtel: [address] [place], [place] [phone] [place] INJECTION 04/21/2014 Patient Education: Patient Medication Summary Completed 04/21/2014 Appointment: June Flores WPtel: [address] [place], [place] [id number] ACUTE ILLNESS 03/04/2014 Patient Education: Patient Medication Summary Completed 03/04/2014 Appointment: María Elena Appiah WPtel: [address] [place], [place] [phone] [place] INJECTION 02/27/2014 Patient Education: Patient Medication Summary Completed 02/27/2014 Visit Plan: Cryotherapy as above to all lesions Patient wants to try no meds for insomnia for a while and see how goes 01/13/2014 Appointment: María Elena Appiah WPtel: [address] [place] [address] OFFICE SURGERY 01/13/2014 Patient Education: Patient Medication Summary Completed 01/13/2014 Visit Plan: Stop Melatonin Stop Soma Tri al of trazadone 75mg q HS See ENT for possible tubes as has had chronic ETD and serous otitis media with numerous steroids 12/24/2013 Appointment: María Elena Appiah WPtel: [address] [place], [place] [phone] ACUTE ILLNESS 12/24/2013 Patient Education: Patient Medication Summary Completed 12/24/2013 Visit Plan: Saline nasal flushes prn. Ty lenol/Motrin prn headache. Notify if persists/symptoms worsening. 11/12/2013 Appointment: María Elena Appiah WPtel: [address] [place], [place] [phone] ACUTE ILLNESS 11/12/2013 Patient Education: Patient Medication Summary Completed 11/12/2013 Appointment: María Elena Appiah WPtel: [address] [place] [address] ACUTE ILLNESS 10/21/2013 Patient Education: Patient Medication Summary Completed 10/21/2013 Visit Plan: Sleep hygiene and sleep rout ine Melatonin 10mg q HS Support stockings and observe 09/22/2013 Appointment: María Elena Appiah WPtel: [address] [place] [address] ACUTE ILLNESS 09/22/2013 Patient Education: Patient Medication Summary Completed 09/22/2013 Appointment: June Flores WPtel: [address] [place] [address] ACUTE ILLNESS 08/27/2013 Patient Education: Patient Medication Summary Completed 08/27/2013 Visit Plan: Proceed with CT scan of head /neck Proceed with occipital nerve injections Butrans 20mcg patch weekly until can get into see Dr. Mcdonough for injections 08/04/2013 Appointment: María Elena Appiah WPtel: [address] [place] [address] FOLLOW UP 08/04/2013 Patient Education: Patient Medication Summary Completed 08/04/2013 Visit Plan: OMT done Daily neck stretche s, moist heat Increase Celebrex to 200mg BID Add flexeril 07/23/2013 Appointment: María Elena Appiah WPtel: [address] [place] [address] 07/22 voicemail FOLLOW UP 07/23/2013 Patient Education: Patient Medication Summary Completed 07/23/2013 Appointment: María Elena Appiah WPtel: [address] [place] [address] ACUTE ILLNESS 06/23/2013 Patient Education: Patient Medication Summary Completed 06/23/2013 Appointment: María Elena Appiah WPtel: [address] [place] [address] ACUTE ILLNESS 05/26/2013 Patient Education: Patient Medication Summary Completed 05/26/2013 Visit Plan: Decrease clonidine to 0.1mg TID If BP remains stable consider decreasing amlodopine Prednisone for 5 days BP check in 1mo 04/16/2013 Appointment: María Elena Appiah WPtel: [address] [place] [address] 04/14 pt called and confirmed appt FOLLOW UP 04/16/2013 Patient Education: Patient Medication Summary Completed 04/16/2013 Appointment: María Elena Appiah WPtel: [address] [place] [address] ACUTE ILLNESS 03/05/2013 Patient Education: Patient Medication Summary Completed 03/05/2013 Visit Plan: Pt has MARIA ELENA on with Dr. Sharonda Arita Butrans patch Refill Hydrocodone early tomorrow 12/23/2012 Appointment: María Elena Appiah WPtel: [address] [place] [address] FOLLOW UP 12/23/2012 Patient Education: Patient Medication Summary Completed 12/23/2012 Appointment: Lashawn Eckert WPtel: [address] [place] [address] ACUTE ILLNESS 12/16/2012 Patient Education: Patient Medication Summary Completed 12/16/2012 Visit Plan: Proceed with updated MRI of LS spine Continue gabapentin and add soma and diclofenac Will likely need to go for another epidural 12/09/2012 Appointment: María Elena Appiah WPtel: [address] [place] [address] ACUTE ILLNESS 12/09/2012 Patient Education: Patient Medication Summary Completed 12/09/2012 Visit Plan: Injection as above Finish me drol dose pack Chiropracter this afternoon 12/04/2012 Appointment: María Elena Appiah WPtel: [address] [place] [address] ACUTE ILLNESS 12/04/2012 Patient Education: Patient Medication Summary Completed 12/04/2012 Appointment: Mary Tillman WPtel: [address] [place] [address] FOLLOW UP 11/22/2012 Patient Education: Patient Medication Summary Completed 11/22/2012 Appointment: María Elena Appiah WPtel: [address] [place] [address] ACUTE ILLNESS 11/21/2012 Patient Education: Patient Medication Summary Completed 11/21/2012 Appointment: María Elena Appiah WPtel: [address] [place] [address] BP CHECK 11/07/2012 Patient Education: Patient Medication [...] re-check. 10/29/2012 Appointment: Lashawn Eckert WPtel: [address] [place] [address] ACUTE ILLNESS 10/29/2012 Patient Education: Patient Medication Summary Completed 10/29/2012 Appointment: María Elena Appiah WPtel: [address] [place] [address] ACUTE ILLNESS 10/14/2012 Patient Education: Patient Medication Summary Completed 10/14/2012 Appointment: María Elena Appiah WPtel: [address] [place] [address] UA 09/27/2012 Patient Education: Patient Medication Summary Completed 09/27/2012 Appointment: María Elena Appiah WPtel: [address] [place] [address] ACUTE ILLNESS 09/25/2012 Patient Education: Patient Medication Summary Completed 09/25/2012 Appointment: María Elena Appiah WPtel: [address] [place] [address] BP CHECK 09/24/2012 Appointment: María Elena Appiah WPtel: [address] [place], [place] [id number] ACUTE ILLNESS 08/29/2012 Patient Education: Patient Medication Summary Completed 08/29/2012 Visit Plan: Cryotherapy as above See Karlos m for right ear lesion--probable MOHs procedure Increase amlodopine to 10mg daily 08/12/2012 Appointment: María Elena Appiah WPtel: [address] [place], [place] [phone] OFFICE SURGERY 08/12/2012 Patient Education: Patient Medication Summary Completed 08/12/2012 Appointment: María Elena Appiah WPtel: [address] [place] [address] 05/03 vm on pt phone...pt called on 04/11 3 pt called wanting in had no one cancel so could not get her in for an appt sooner than 05/06. ACUTE ILLNESS 05/06/2012 Patient Education: Patient Medication Summary Completed 05/06/2012 Visit Plan: Pt wants to hold on any furt her sleep medications 04/03/2012 Appointment: María Elena Appiah WPtel: [address] [place] [address] FOLLOW UP 04/03/2012 Patient Education: Patient Medication Summary Completed 04/03/2012 Appointment: María Elena Appiah WPtel: [address] [place], [place] [phone] FOLLOW UP 03/19/2012 Patient Education: Patient Medication Summary Completed 03/19/2012 Appointment: María Elena Appiah WPtel: [address] [place], [place] [address] BP CHECK 02/22/2012 Patient Education: Patient Medication Summary Completed 02/22/2012 Appointment: María Elena Appiah WPtel: [address] [place], [place] [phone] BP CHECK 02/21/2012 Patient Education: Patient Medication Summary Completed 02/21/2012 Visit Plan: Doxycycline and bactroban fo r foot Supportive care on ankles and knees Add norvasc for BP 02/20/2012 Appointment: María Elena Appiahtel: [address] [place] [address] ER Follow UP 02/20/2012 Patient Education: Patient Medication Summary Completed 02/20/2012 Appointment: María Elena Appiahtel: [address] [place] [address] ACUTE ILLNESS 01/30/2012 Patient Education: Patient Medication Summary Completed 01/30/2012 Appointment: María Elena Appiahtel: [address] [place] [address] ACUTE ILLNESS 01/24/2012 Patient Education: Patient Medication Summary Completed 01/24/2012 Visit Plan: Daily back stretches, moist heat, Biofreeze prn OMT done 01/10/2012 Appointment: María Elena Appiahtel: [address] [place] [address] ACUTE ILLNESS 01/10/2012 Patient Education: Patient Medication Summary Completed 01/10/2012 Appointment: María Elena Appiahtel: [address] [place] [address] FOLLOW UP 12/11/2011 Patient Education: Patient Medication Summary Completed 12/11/2011 Appointment: María Elena Appiahtel: [address] [place] [address] ACUTE ILLNESS 11/09/2011 Patient Education: Patient Medication Summary Completed 11/09/2011 Appointment: María Elena Appiahtel: [address] [place] [address] ACUTE ILLNESS 09/13/2011 Patient Education: Patient Medication Summary Completed 09/13/2011 Visit Plan: Check CBC, TSH, Free T4, CMP , ESR, Vit D, B12 now Start Prednisone today 08/31/2011 Appointment: María Elena Appiahtel: [address] [place], [place] [id number] ACUTE ILLNESS 08/31/2011 Patient Education: Patient Medication Summary Completed 08/31/2011 Appointment: María Elena Appiahtel: [address] [place], [place] [phone] [place] INJECTION 07/20/2011 Patient Education: Patient Medication Summary Completed 07/20/2011 Visit Plan: Continue current meds Monite r BP Cont stretches from PT 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 07/06/2011 Appointment: María Elena Appiah WPtel: [address] [place] [address] FOLLOW UP 07/06/2011 Patient Education: Patient Medication Summary Completed 07/06/2011 Appointment: María Elena Appiah WPtel: [address] [place] [address] BP CHECK 06/06/2011 Patient Education: Patient Medication Summary Completed 06/06/2011 Visit Plan: Add Bystolic at 2.5mg QAM Ad d Robaxin 750mg 2 po q HS BP check in 2wks 05/22/2011 Appointment: María Elena Appiahtel: [address] [place] [address] FOLLOW UP 05/22/2011 Patient Education: Patient Medication Summary Completed 05/22/2011 Appointment: María Elena Appiah WPtel: [address] [place], [place] [phone] ER Follow UP 05/09/2011 Patient Education: Patient Medication Summary Completed 05/09/2011 Appointment: María Elena Appiah WPtel: [address] [place] [address] [place] FOLLOW UP 02/22/2011 Visit Plan: Rx written for Hydrocodone 1 0/325mg #240 See Ortho 02/14/2011 Appointment: María Elena Appiah WPtel: [address] [place], [place] [phone] OMT 02/14/2011 Patient Education: Patient Medication [...] work. 02/03/2011 Appointment: Lashawn Eckert WPtel: [address] [place] [address] ACUTE ILLNESS 02/03/2011 Patient Education: Patient Medication Summary Completed 02/03/2011 Visit Plan: OMT done Cont daily stretche s 01/31/2011 Appointment: María Elena Appiah WPtel: [address] [place] [address] ACUTE ILLNESS 01/31/2011 Patient Education: Patient Medication Summary Completed 01/31/2011 Visit Plan: Continue pain meds OMT done Proceed with PT No work this summer01/25/2011 Appointment: María Elena Appiah WPtel: [address] [place] [address] ACUTE ILLNESS 01/25/2011 Patient Education: Patient Medication Summary Completed 01/25/2011 Visit Plan: Start PT Long discussion abo ut getting pain meds from only us and can only have max of 4grams of tylenol per day Change to Hydrocodone 10/325mg 1- 2 po TID prn pain--#180 called to Radha 01/18/2011 Appointment: María Elena Appiah WPtel: [address] [place] [address] FOLLOW UP 01/18/2011 Patient Education: Patient Medication Summary Completed 01/18/2011 Visit Plan: Daily back stretches, moist heat, Biofreeze prn 11/29/2010 Appointment: María Elena Appiah WPtel: [address] [place], [place] [phone] ER Follow UP 11/29/2010 Patient Education: Patient Medication Summary Completed 11/29/2010 Visit Plan: Saline nasal flushes prn. Ty lenol/Motrin prn headache. Notify if persists/symptoms worsening. Finish augmentin Add Medrol Dose Pack 10/10/2010 Appointment: María Elena Appiah WPtel: [address] [place], [place] [phone] ACUTE ILLNESS 10/10/2010 Patient Education: Patient Medication Summary Completed 10/10/2010 Visit Plan: Cryotherapy x3 to multiple l esions on both forearms 07/19/2010 Appointment: María Elena Appiah WPtel: [address] [place] [address] OFFICE SURGERY 07/19/2010 Patient Education: Patient Medication Summary Completed 07/19/2010 Appointment: María Elena Appiah WPtel: [address] [place] [address] BP CHECK 07/06/2010 Patient Education: Patient Medication Summary Completed 07/06/2010 Appointment: María Elena Appiah WPtel: [address] [place], [place] [id number] BP CHECK 06/30/2010 Patient Education: Patient Medication Summary Completed 06/30/2010 Appointment: María Elena Appiah WPtel: [address] [place], [place] [id number] BP CHECK 06/20/2010 Patient Education: Patient Medication Summary Completed 06/20/2010 Visit Plan: Change Diovan to Exforge 160 /5mg QD OMT done to thoracics BP check in 2wks 06/07/2010 Appointment: María Elena Appiah WPtel: [address] [place], [place] [phone] FOLLOW UP 06/07/2010 Patient Education: Patient Medication Summary Completed 06/07/2010 Appointment: María Elena Appiah WPtel: [address] [place] [address] BP CHECK 06/03/2010 Patient Education: Patient Medication Summary Completed 06/03/2010 Appointment: María Elena Appiah WPtel: [address] [place] [address] BP CHECK 06/01/2010 Patient Education: Patient Medication Summary Completed 06/01/2010 Visit Plan: Irritated skin tags to left neck x2 excised at base with scissors and base cauterized 05/30/2010 Appointment: María Elena Appiah WPtel: [address] [place] [address] OFFICE SURGERY 05/30/2010 Patient Education: Patient Medication Summary Completed 05/30/2010 Visit Plan: Saline nasal flushes prn. Ty lenol/Motrin prn headache. Notify if persists/symptoms worsening. Restart Nasonex Has allergy testing set for May 25 04/27/2010 Appointment: María Elena Appiah WPtel: [address] [place] [address] ACUTE ILLNESS 04/27/2010 Patient Education: Patient Medication Summary Completed 04/27/2010 Visit Plan: Saline nasal flushes prn. Ty lenol/Motrin prn headache. Notify if persists/symptoms worsening. Omnaris BID plus injections 04/05/2010 Appointment: María Elena Appiah WPtel: [address] [place] [address] ACUTE ILLNESS 04/05/2010 Patient Education: Patient Medication Summary Completed 04/05/2010 Visit Plan: Saline nasal flushes prn. Ty lenol/Motrin prn headache. Notify if persists/symptoms worsening. 03/09/2010 Appointment: María Elena Appiah WPtel: [address] [place] [address] ACUTE ILLNESS 03/09/2010 Patient Education: Patient Medication Summary Completed 03/09/2010 Visit Plan: Cont Clonidine as is Cont Pr emarin Fwup with surgery as scheduled 03/03/2010 Appointment: María Elena Appiah WPtel: [address] [place], [place] [id number] FOLLOW UP 03/03/2010 Patient Education: Patient Medication Summary Completed 03/03/2010 Visit Plan: Check Pelvic US now Discusse tacho Sal C vs Hysterectomy 01/17/2010 Appointment: María Elena Appiah WPtel: [address] [place], [place] [id number] ACUTE ILLNESS 01/17/2010 Patient Education: Patient Medication Summary Completed 01/17/2010 Visit Plan: Check fasting lab and schedu le Mammogram 2gm Na Diet Trial of Ambien 10mg qhs Fwup pending lab results 12/27/2009 Appointment: María Elena Appiah WPtel: [address] [place] [address] ESTABLISHED PATIENT 12/27/2009 Patient Education: Patient Medication Summary Completed 12/27/2009 Referral: Canelo Overton WPtel: [address] [id number] [place] Referral Initiated Referral: Philipp Flores WPtel: [address] [id number] [place] Referral Appointment Requested Instructions Comment . [...]
--- OUTSIDE RECORDS SUMMARY | 2020-03-13 06:10 | XMS REPORT | CCD ---
Author Author Gale Appiah D.O. Organization [facility] Address [address] [place] [phone] Phone Care Team Providers Care [employer] Name Role Phone María Elena Appiah D.O., PP Unavailable CCM Unavailable Summary Purpose Interface Exchange Insurance Providers Payer name Policy type / Coverage type Covered alliance party ID Effective Begin Date Effective End Date [facility] Commercial Insurance [id number] Unknown Family History Family History data not found Social History Social History Element Codes Description Effective Dates Tobacco history SNOMED CT: [id number] Never smoker 05/22/2011 Allergies, Adverse Reactions, Alerts [...] Start Date Stop Date Status Fill Instructions Glyxambi 25 mg-5 mg tablet RxNorm: 7805727 1 Tablet(s) Oral QD 01/202011/14/2019 Active Patient will bring in copay discount card as well Glyxambi 25 mg-5 mg tablet RxNorm: 8027338 1 Tablet(s) Oral QD 01/202010/14/2019 Inactive Patient will bring in copay discount card as well Keflex 500 mg capsule RxNorm: 947211 1 Capsule(s) Oral two time s a day 10/07/2019 10/14/2019 Inactive Premarin 1.25 mg tablet RxNorm: 921516 1 Tablet(s) Oral QD 09/30/1906/25/2020 Active hydrocodone 10 mg-acetaminophen 325 mg tablet RxNorm: 493599 1-2 Tablet(s) Oral three times a day as needed for pain 09/30/2019 09/30/2019 Inactive gabapentin 300 mg capsule RxNorm: 491330 TAKE ONE CAPSU LE BY MOUTH EVERY NIGHT AT BEDTIME 09/19/2019 No Stop Date Active baclofen 10 mg tablet RxNorm: 415449 TAKE ONE TABLET BY MOUTH THREE TIMES A DAY NEEDED 09/19/2019 No Stop Date Active Klor-Con 8 mEq tablet,extended release RxNorm: 443181 T FARRUKH ONE TABLET BY MOUTH TWICE A DAY 1 Tablet(s) Oral two times a day 09/19/2019 10/19/2019 Act darion hydrocodone 10 mg-acetaminophen 325 mg tablet RxNorm: 028278 1-2 Tablet(s) Oral three times a day as needed for pain 09/19/2019 09/29/2019 Inactive duloxetine 60 mg capsule,delayed release RxNorm: 863570 TAKE ONE CAPSULE BY MOUTH DAILY 09/11/2019 No Stop Date Active Lipitor 10 mg tablet RxNorm: 253811 TAKE ONE TABLET BY MOUTH AT BEDTIME 09/11/2019 No Stop Date Active lisinopril 20 mg tablet RxNorm: 721445 TAKE ONE TABLET BY MOUTH DAILY .... THIS REPLACE 10MG TABLETS 09/11/2019 No Stop Date Active triamterene 75 mg-hydrochlorothiazide 50 mg tablet RxNorm: 3 89910 TAKE ONE TABLET BY MOUTH DAILY 09/11/2019 No Stop Date Active allopurinol 300 mg tablet RxNorm: 310995 TAKE ONE TABLET BY LOPEZ TH DAILY 09/11/2019 No Stop Date Active celecoxib 200 mg capsule RxNorm: 340611 TAKE ONE CAPSUL E BY MOUTH TWICE A DAY NEEDED FOR PAIN 09/11/2019 No Stop Date Active clonidine HCl 0.1 mg tablet RxNorm: 246504 TAKE ONE TAB LET BY MOUTH FOUR TIMES A DAY 09/11/2019 No Stop Date Active doxepin 25 mg capsule RxNorm: 9115390 1 Capsule(s) Oral every night at bedtime as needed for sleep 08/21/2019 11/18/2019 Active hydrocodone 10 mg-acetaminophen 325 mg tablet RxNorm: 359724 1-2 Tablet(s) PO TID 08/12/2019 09/29/2019 Inactive as needed for pa in - Previous quantity #240, will start dosing for #180 in April 2011 per Doctor Td. Medrol (Dustin) 4 mg tablets in a dose pack RxNorm: 397289 Tablet(s) Oral As Directed 07/21/2019 09/29/2019 Inactive Premarin 1.25 mg tablet RxNorm: 837438 1 Tablet(s) Oral QD 07/02/20 19 09/29/2019 Inactive hydrocodone 10 mg-acetaminophen 325 mg tablet RxNorm: 781091 1-2 Tablet(s) PO TID 07/01/2019 08/11/2019 Inactive as needed for pa in - Previous quantity #240, will start dosing for #180 in April 2011 per Doctor Td. gabapentin 300 mg capsule RxNorm: 222018 1 Capsule(s) PO QHS 201809/18/2019 Inactive celecoxib 200 mg capsule RxNorm: 585634 1 Capsule(s) Or al two times a day as needed for pain 06/27/2019 06/27/2019 Inactive Singulair 10 mg tablet RxNorm: 201652 TAKE ONE TABLET BY MOUTH JOSÉ Y 06/24/2019 No Stop Date Active furosemide 40 mg tablet RxNorm: 494300 TAKE ONE TABLET BY MOUTH EVERY MORNING NEEDED FOR EDEMA . TAKE WITH POTASSIUM 06/24/2019 No Stop Date Active doxepin 25 mg capsule RxNorm: 1749640 TAKE ONE CAPSULE B Y MOUTH EVERY NIGHT AT BEDTIME NEEDED FOR SLEEP 06/24/2019 08/20/2019 Inactive lisinopril 20 mg tablet RxNorm: 904705 TAKE ONE TABLET BY MOUTH DAILY .... THIS REPLACE 10MG TABLETS 06/24/2019 09/10/2019 Inactive nystatin-triamcinolone 100,000 unit/g-0.1 % topical cream Rx Norm: 6903569 1 Application Topical two times a day 06/12/2019 06/19/2019 Inactive apply BID for 1 week nystatin-triamcinolone 100,000 unit/g-0.1 % topical cream Rx Norm: 3428540 1 Application Topical two times a day 06/12/2019 06/11/2019 Inactive apply BID for 1 week hydrocodone 10 mg-acetaminophen 325 mg tablet RxNorm: 411006 1-2 Tablet(s) PO QID as needed for pain MUST LAST 30 DAYS 05/28/2019 06/26/2019 Inactiv e (Response to an electronic controlled substance refill request - RxReferenceNumber: [id number]) baclofen 20 mg tablet RxNorm: 953607 1 Tablet(s) PO TID as needed for muscle spasm 05/19/2019 05/27/2019 Inactive gabapentin 300 mg capsule RxNorm: 129073 1 Capsule(s) PO QHS 201805/27/2019 Inactive lisinopril 20 mg tablet RxNorm: 208627 1 Tablet(s) PO Q D TAKE ONE TABLET BY MOUTH DAILY, REPLACES 10 MG DOSE 05/19/2019 06/23/2019 Inactive doxepin 25 mg capsule RxNorm: 4357558 TAKE ONE CAPSULE B Y MOUTH EVERY NIGHT AT BEDTIME NEEDED FOR SLEEP 05/16/2019 06/14/2019 Inactive lisinopril 20 mg tablet RxNorm: 428782 TAKE ONE TABLET BY MOUTH DAILY, REPLACES 10 MG DOSE 05/16/2019 05/18/2019 Inactive Singulair 10 mg tablet RxNorm: 533867 TAKE ONE TABLET BY MOUTH JOSÉ Y 05/16/2019 06/14/2019 Inactive gabapentin 300 mg capsule RxNorm: 315192 1 Capsule(s) PO QHS 201805/04/2019 Inactive estropipate 1.5 mg tablet RxNorm: 318298 1 Tablet(s) PO QD 05/05/20 19 05/27/2019 Inactive estropipate 1.5 mg tablet RxNorm: 727935 1 Tablet(s) PO QD 05/05/20 19 05/04/2019 Inactive gabapentin 300 mg capsule RxNorm: 649947 1 Capsule(s) PO QHS 201805/18/2019 Inactive hydrocodone 10 mg-acetaminophen 325 mg tablet RxNorm: 346231 1-2 Tablet(s) PO QID as needed for pain MUST LAST 30 DAYS 04/25/2019 05/24/2019 Inactiv e (Response to an electronic controlled substance refill request - RxReferenceNumber: [id number]) metoprolol tartrate 100 mg tablet RxNorm: 684097 TAKE O NE TABLET BY MOUTH TWICE A DAY 04/24/2019 06/22/2019 Inactive cyclobenzaprine 10 mg tablet RxNorm: 858963 TAKE ONE TA BLET BY MOUTH THREE TIMES A DAY NEEDED FOR MUSCLE SPASMS 04/24/2019 05/18/2019 Inactive Lyrica 75 mg capsule RxNorm: 502783 1 Capsule(s) PO QHS 03/25/2019 Inactive duloxetine 60 mg capsule,delayed release RxNorm: 176660 TAKE ONE CAPSULE BY MOUTH DAILY 03/21/2019 05/19/2019 Inactive triamterene 75 mg-hydrochlorothiazide 50 mg tablet RxNorm: 3 15487 TAKE ONE TABLET BY MOUTH DAILY 03/21/2019 05/19/2019 Inactive Klor-Con 8 mEq tablet,extended release RxNorm: 994000 T FARRUKH ONE TABLET BY MOUTH TWICE A DAY 03/21/2019 09/18/2019 Inactive Lipitor 10 mg tablet RxNorm: 974164 TAKE ONE TABLET BY MOUTH AT BEDTIME 03/21/2019 09/10/2019 Inactive clonidine HCl 0.1 mg tablet RxNorm: 733308 TAKE ONE TAB LET BY MOUTH FOUR TIMES A DAY 03/21/2019 05/19/2019 Inactive allopurinol 300 mg tablet RxNorm: 294953 TAKE ONE TABLET BY LOPEZ TH DAILY 03/21/2019 05/19/2019 Inactive hydrocodone 10 mg-acetaminophen 325 mg tablet RxNorm: 593854 1-2 Tablet(s) PO QID as needed for pain MUST LAST 30 DAYS 02/28/2019 03/29/2019 Inactiv e (Response to an electronic controlled substance refill request - RxReferenceNumber: [id number]) furosemide 40 mg tablet RxNorm: 951351 TAKE ONE TABLET BY MOUTH EVERY MORNING NEEDED FOR EDEMA . TAKE WITH POTASSIUM 02/21/2019 03/22/2019 Inactive cyclobenzaprine 10 mg tablet RxNorm: 125016 TAKE ONE TA BLET BY MOUTH THREE TIMES A DAY NEEDED FOR MUSCLE SPASMS 02/21/2019 04/21/2019 Inactive lisinopril 20 mg tablet RxNorm: 397259 TAKE ONE TABLET BY MOUTH DAILY, REPLACES 10 MG DOSE 02/21/2019 05/15/2019 Inactive doxepin 25 mg capsule RxNorm: 6478972 TAKE ONE CAPSULE B Y MOUTH EVERY NIGHT AT BEDTIME NEEDED FOR SLEEP 02/21/2019 05/15/2019 Inactive nystatin 100,000 unit/gram topical cream RxNorm: 951909 APPLY TO AFFECTED AREA(S) TWO TIMES A DAY 02/21/2019 03/22/2019 Inactive estradiol 1 mg tablet RxNorm: 177320 2 Tablet(s) PO QD replaces premarin 01/22/2019 05/04/2019 Inactive lisinopril 20 mg tablet RxNorm: 168759 TAKE ONE TABLET BY MOUTH DAILY, REPLACES 10 MG DOSE 01/20/2019 02/18/2019 Inactive cyclobenzaprine 10 mg tablet RxNorm: 383308 TAKE ONE TA BLET BY MOUTH THREE TIMES A DAY NEEDED FOR MUSCLE SPASMS 01/20/2019 02/18/2019 Inactive metoprolol tartrate 100 mg tablet RxNorm: 215840 TAKE O NE TABLET BY MOUTH TWICE A DAY 01/20/2019 02/18/2019 Inactive cyclobenzaprine 10 mg tablet RxNorm: 243307 TAKE ONE TA BLET BY MOUTH THREE TIMES A DAY NEEDED FOR MUSCLE SPASMS 12/19/2018 01/17/2019 Inactive lisinopril 20 mg tablet RxNorm: 949083 TAKE ONE TABLET BY MOUTH DAILY, REPLACES 10 MG DOSE 12/19/2018 01/17/2019 Inactive duloxetine 60 mg capsule,delayed release RxNorm: 857968 TAKE ONE CAPSULE BY MOUTH DAILY 12/19/2018 01/17/2019 Inactive Lipitor 10 mg tablet RxNorm: 286377 TAKE ONE TABLET BY MOUTH AT BEDTIME 12/19/2018 01/17/2019 Inactive cyclobenzaprine 10 mg tablet RxNorm: 332772 1 Tablet(s) PO TID as needed for muscle spasm 11/19/2018 12/18/2018 Inactive Singulair 10 mg tablet RxNorm: 796063 1 Tablet(s) PO QD 11/19/2018 Inactive lisinopril 20 mg tablet RxNorm: 482139 TAKE ONE TABLET BY MOUTH DAILY, REPLACES 10 MG DOSE 11/15/2018 12/18/2018 Inactive hydrocodone 10 mg-acetaminophen 325 mg tablet RxNorm: 930300 1-2 Tablet(s) PO QID as needed for pain MUST LAST 30 DAYS 11/13/2018 12/12/2018 Inactiv e (Response to an electronic controlled substance refill request - RxReferenceNumber: [id number]) nystatin 100,000 unit/gram topical cream RxNorm: 120008 APPLY TO AFFECTED AREA(S) TWO TIMES A DAY 10/23/2018 11/06/2018 Inactive lisinopril 20 mg tablet RxNorm: 429346 1 Tablet(s) PO QD replac es 10mg dose 10/18/2018 11/14/2018 Inactive hydrocodone 10 mg-acetaminophen 325 mg tablet RxNorm: 478416 1-2 Tablet(s) QID as needed for pain MUST LAST 30 DAYS 10/08/2018 11/06/2018 Inactive (Response to an electronic controlled substance refill request - RxReferenceNumber: [id number]) lisinopril 10 mg tablet RxNorm: 066068 1 Tablet(s) PO QD 10/03/2018 0 01/21/2019 Inactive Celebrex 200 mg capsule RxNorm: 895753 TAKE ONE CAPSULE BY MOUT H TWICE A DAY 09/30/2018 05/04/2019 Inactive cyclobenzaprine 10 mg tablet RxNorm: 882492 TAKE ONE TA BLET BY MOUTH THREE TIMES A DAY NEEDED FOR MUSCLE SPASMS 09/30/2018 11/18/2018 Inactive doxepin 25 mg capsule RxNorm: 2167572 TAKE ONE CAPSULE B Y MOUTH EVERY NIGHT AT BEDTIME NEEDED 09/05/2018 10/16/2018 Inactive omeprazole 40 mg capsule,delayed release RxNorm: 198424 TAKE ONE CAPSULE BY MOUTH DAILY 09/05/2018 01/21/2019 Inactive furosemide 40 mg tablet RxNorm: 443425 TAKE ONE TABLET BY MOUTH EVERY MORNING NEEDED FOR EDEMA . TAKE WITH POTASSIUM 09/05/2018 11/03/2018 Inactive phentermine 37.5 mg tablet RxNorm: 044467 1 Tablet(s) PO QAM 201701/21/2019 Inactive doxepin 25 mg capsule RxNorm: 1615121 1 Capsule(s) PO QH S as needed for sleep TAKE ONE CAPSULE BY MOUTH EVERY NIGHT AT BEDTIME NEEDED 08/27/2018 09/04/2018 Inactive Keflex 500 mg capsule RxNorm: 003725 1 Capsule(s) PO TID 08/09/2018 1 10/19/2017 Inactive Diflucan 100 mg tablet RxNorm: 081972 1 Tablet(s) PO QD 08/09/2018 Inactive Premarin 1.25 mg tablet RxNorm: 926125 2 Tablet(s) PO QD 08/09/2018 0 05/04/2019 Inactive Zofran ODT 4 mg disintegrating tablet RxNorm: 396576 1 Tablet(s) PO Q4H as needed for nausea 08/09/2018 01/21/2019 Inactive metoprolol tartrate 100 mg tablet RxNorm: 632096 TAKE O NE TABLET BY MOUTH TWICE A DAY 2018 10/04/2018 Inactive doxepin 25 mg capsule RxNorm: 6091871 TAKE ONE CAPSULE B Y MOUTH EVERY NIGHT AT BEDTIME NEEDED 2018 08/26/2018 Inactive cyclobenzaprine 10 mg tablet RxNorm: 122184 TAKE ONE TA BLET BY MOUTH THREE TIMES A DAY NEEDED FOR MUSCLE SPASMS 2018 09/29/2018 Inactive hydrocodone 10 mg-acetaminophen 325 mg tablet RxNorm: 477374 1-2 Tablet(s) QID as needed for pain MUST LAST 30 DAYS 07/29/2018 08/27/2018 Inactive (Response to an electronic controlled substance refill request - RxReferenceNumber: [id number]) nystatin 100,000 unit/gram topical powder RxNorm: 194905 Applic ation TOP BID 07/22/2018 08/04/2018 Inactive doxepin 25 mg capsule RxNorm: 5053858 1 Capsule(s) PO QHS as needed 07/22/2018 08/05/2018 Inactive triamterene 75 mg-hydrochlorothiazide 50 mg tablet RxNorm: 3 72736 TAKE ONE TABLET BY MOUTH DAILY 07/05/2018 10/02/2018 Inactive duloxetine 60 mg capsule,delayed release RxNorm: 446292 TAKE ONE CAPSULE BY MOUTH DAILY 07/05/2018 09/02/2018 Inactive Klor-Con 8 mEq tablet,extended release RxNorm: 996897 T FARRUKH ONE TABLET BY MOUTH TWICE A DAY 07/05/2018 10/02/2018 Inactive Lipitor 10 mg tablet RxNorm: 517991 TAKE ONE TABLET BY MOUTH AT BEDTIME 07/05/2018 09/02/2018 Inactive allopurinol 300 mg tablet RxNorm: 641313 TAKE ONE TABLET BY LOPEZ TH DAILY 07/05/2018 10/02/2018 Inactive clonidine HCl 0.1 mg tablet RxNorm: 777960 TAKE ONE TAB LET BY MOUTH FOUR TIMES A DAY 07/05/2018 10/02/2018 Inactive hydrocodone 10 mg-acetaminophen 325 mg tablet RxNorm: 736986 1-2 Tablet(s) QID as needed for pain MUST LAST 30 DAYS 06/28/2018 07/27/2018 Inactive (Response to an electronic controlled substance refill request - RxReferenceNumber: [id number]) MediHoney (calcium alginate-honey) 4" X 5" bandage RxNorm: 1 Application TOP QD 06/17/2018 06/26/2018 Inactive honey-hydrocolloid dressing 4" X 5" RxNorm: 1 Application TOP QD 06/17/2018 07/16/2018 Inactive furosemide 40 mg tablet RxNorm: 033378 TAKE ONE TABLET BY MOUTH EVERY MORNING NEEDED FOR EDEMA . TAKE WITH POTASSIUM 06/10/2018 07/09/2018 Inactive This is a refill request. hydrocodone 10 mg-acetaminophen 325 mg tablet RxNorm: 768012 1-2 Tablet(s) QID as needed for pain MUST LAST 30 DAYS 05/30/2018 06/27/2018 Inactive (Response to an electronic controlled substance refill request - RxReferenceNumber: [id number]) acyclovir 800 mg tablet RxNorm: 091253 1 Tablet(s) PO 5x day 201705/22/2018 Inactive Premarin 1.25 mg tablet RxNorm: 899181 1-2 Tablet(s) PO QD 05/15/20 18 07/13/2018 Inactive cyclobenzaprine 10 mg tablet RxNorm: 295301 1 Tablet(s) PO TID as needed for muscle spasm 05/09/2018 05/08/2018 Inactive Medrol (Dustin) 4 mg tablets in a dose pack RxNorm: 900631 Tablet(s) PO As Directed 05/02/2018 06/16/2018 Inactive hydrocodone 10 mg-acetaminophen 325 mg tablet RxNorm: 315138 1-2 Tablet(s) QID as needed for pain MUST LAST 30 DAYS 04/30/2018 05/29/2018 Inactive (Response to an electronic controlled substance refill request - RxReferenceNumber: [id number]) duloxetine 60 mg capsule,delayed release RxNorm: 757635 TAKE ONE CAPSULE BY MOUTH DAILY 04/16/2018 05/15/2018 Inactive Celebrex 200 mg capsule RxNorm: 204727 TAKE ONE CAPSULE BY MOUT H TWICE A DAY 04/16/2018 06/14/2018 Inactive Singulair 10 mg tablet RxNorm: 754093 TAKE ONE TABLET BY MOUTH JOSÉ Y 04/16/2018 11/19/2018 Inactive Lipitor 10 mg tablet RxNorm: 046575 TAKE ONE TABLET BY MOUTH AT BEDTIME 04/16/2018 05/15/2018 Inactive hydrocodone 10 mg-acetaminophen 325 mg tablet RxNorm: 573917 1-2 Tablet(s) QID as needed for pain MUST LAST 30 DAYS 03/29/2018 04/27/2018 Inactive (Response to an electronic controlled substance refill request - RxReferenceNumber: [id number]) cyclobenzaprine 10 mg tablet RxNorm: 023551 1 Tablet(s) PO TID as needed for muscle spasm 03/18/2018 05/09/2018 Inactive omeprazole 40 mg capsule,delayed release RxNorm: 722630 1 Capsu le(s) PO QD 02/26/2018 08/24/2018 Inactive hydrocodone 10 mg-acetaminophen 325 mg tablet RxNorm: 448446 1-2 Tablet(s) QID as needed for pain MUST LAST 30 DAYS 02/26/2018 03/27/2018 Inactive (Response to an electronic controlled substance refill request - RxReferenceNumber: [id number]) metoprolol tartrate 100 mg tablet RxNorm: 025068 1 Tablet(s) PO BID 02/18/2018 08/05/2018 Inactive Lyrica 75 mg capsule RxNorm: 034094 1 Capsule(s) PO QHS 01/30/2018 Inactive phentermine 37.5 mg tablet RxNorm: 493695 1 Tablet(s) PO QAM 201706/16/2018 Inactive hydrocodone 10 mg-acetaminophen 325 mg tablet RxNorm: 606054 1-2 Tablet(s) QID as needed for pain MUST LAST 30 DAYS 01/29/2018 02/25/2018 Inactive (Response to an electronic controlled substance refill request - RxReferenceNumber: [id number]) Klor-Con 8 mEq tablet,extended release RxNorm: 079750 1 Tablet( s) PO BID 01/14/2018 07/04/2018 Inactive allopurinol 300 mg tablet RxNorm: 177994 1 Tablet(s) PO QD 01/15/20 18 07/04/2018 Inactive Lipitor 10 mg tablet RxNorm: 644756 1 Tablet(s) PO QHS 01/14/201812/2017 Inactive triamterene 75 mg-hydrochlorothiazide 50 mg tablet RxNorm: 3 20750 1 Tablet(s) PO QD 01/14/2018 07/04/2018 Inactive hydrocodone 10 mg-acetaminophen 325 mg tablet RxNorm: 626360 1-2 Tablet(s) QID as needed for pain MUST LAST 30 DAYS 12/27/2017 01/25/2018 Inactive (Response to an electronic controlled substance refill request - RxReferenceNumber: [id number]) Onglyza 5 mg tablet RxNorm: 032610 1 Tablet(s) PO QD 12/18/201701/29 Inactive metformin 500 mg tablet RxNorm: 051593 1 Tablet(s) PO BID 12/11/2017 12/10/2017 Inactive metformin 500 mg tablet RxNorm: 102884 1 Tablet(s) PO BID 12/11/2017 12/17/2017 Inactive furosemide 40 mg tablet RxNorm: 348418 1 Tablet(s) PO Q AM prn edema--take with potassium 12/11/2017 06/08/2018 Inactive cyclobenzaprine 10 mg tablet RxNorm: 563687 1 Tablet(s) PO TID as needed for muscle spasm 12/11/2017 03/18/2018 Inactive hydrocodone 10 mg-acetaminophen 325 mg tablet RxNorm: 013610 1-2 Tablet(s) QID as needed for pain MUST LAST 30 DAYS 10/23/2017 11/21/2017 Inactive (Response to an electronic controlled substance refill request - RxReferenceNumber: [id number]) Lipitor 10 mg tablet RxNorm: 869261 1 Tablet(s) PO QHS 10/16/201703/2018 Inactive cyclobenzaprine 10 mg tablet RxNorm: 626960 1 Tablet(s) PO TID as needed for muscle spasm 10/09/2017 12/10/2017 Inactive hydroxyzine HCl 25 mg tablet RxNorm: 141730 1 Tablet(s) PO BID as needed for anxiety 09/20/2017 01/29/2018 Inactive Effexor XR 75 mg capsule,extended release RxNorm: 057836 1 Caps ule(s) PO QD 09/20/2017 01/29/2018 Inactive metoprolol tartrate 100 mg tablet RxNorm: 560415 1 Tablet(s) PO BID 08/20/2017 02/18/2018 Inactive baclofen 20 mg tablet RxNorm: 211498 1 Tablet(s) PO TID as needed for muscle spasm 08/20/2017 01/21/2019 Inactive clonidine HCl 0.1 mg tablet RxNorm: 197539 1 Tablet(s) PO QID 08/2005/16/2018 Inactive Seroquel 25 mg tablet RxNorm: 599868 1 Tablet(s) PO QHS 08/17/2017 Inactive Seroquel 25 mg tablet RxNorm: 457817 1 Tablet(s) PO QHS 08/17/2017 Inactive Diflucan 100 mg tablet RxNorm: 355975 TAKE ONE TABLET BY MOUTH JOSÉ Y 07/25/2017 08/07/2017 Inactive hydrocodone 10 mg-acetaminophen 325 mg tablet RxNorm: 818355 1-2 Tablet(s) QID as needed for pain MUST LAST 30 DAYS 07/19/2017 08/17/2017 Inactive (Response to an electronic controlled substance refill request - RxReferenceNumber: [id number]) clindamycin 300 mg capsule RxNorm: 181947 1 Capsule(s) PO TID 07/1907/28/2017 Inactive clotrimazole-betamethasone 1 %-0.05 % topical cream RxNorm: 838515 Application TOP BID to elbow rash 07/19/2017 06/16/2018 Inactive Singulair 10 mg tablet RxNorm: 855888 Tablet(s) TAKE ONE TABLET BY MOUTH DAILY 07/18/2017 04/13/2018 Inactive triamterene 75 mg-hydrochlorothiazide 50 mg tablet RxNorm: 3 77211 1 Tablet(s) PO QD 07/18/2017 01/14/2018 Inactive Celebrex 200 mg capsule RxNorm: 798222 Capsule(s) TAKE ONE CAPSULE BY MOUTH TWICE A DAY 07/18/2017 10/15/2017 Inactive hydrocodone 10 mg-acetaminophen 325 mg tablet RxNorm: 003225 1-2 Tablet(s) QID as needed for pain MUST LAST 30 DAYS 06/19/2017 07/18/2017 Inactive (Response to an electronic controlled substance refill request - RxReferenceNumber: [id number]) hydrocodone 10 mg-acetaminophen 325 mg tablet RxNorm: 367795 1-2 Tablet(s) QID as needed for pain MUST LAST 30 DAYS 06/19/2017 06/18/2017 Inactive (Response to an electronic controlled substance refill request - RxReferenceNumber: [id number]) baclofen 20 mg tablet RxNorm: 636764 1 Tablet(s) PO TID as needed for muscle spasm 06/18/2017 08/20/2017 Inactive Medrol (Dustin) 4 mg tablets in a dose pack RxNorm: 634050 Tablet(s) PO As Directed 06/05/2017 07/18/2017 Inactive omeprazole 40 mg capsule,delayed release RxNorm: 913916 1 Capsu le(s) PO QD 04/20/2017 10/16/2017 Inactive Premarin 1.25 mg tablet RxNorm: 232457 1-2 Tablet(s) PO QD 04/11/20 17 05/15/2018 Inactive duloxetine 60 mg capsule,delayed release RxNorm: 001408 1 Capsu le(s) PO QD 04/11/2017 09/19/2017 Inactive furosemide 40 mg tablet RxNorm: 761511 1 Tablet(s) PO Q AM prn edema--take with potassium 04/11/2017 12/11/2017 Inactive Klor-Con 8 mEq tablet,extended release RxNorm: 975587 1 Tablet( s) PO BID 04/11/2017 01/14/2018 Inactive Lipitor 10 mg tablet RxNorm: 960981 1 Tablet(s) PO QHS 04/11/201702/2018 Inactive amlodipine 5 mg-benazepril 20 mg capsule RxNorm: 540408 1 Capsu le(s) PO QD 04/11/2017 01/29/2018 Inactive allopurinol 300 mg tablet RxNorm: 823492 1 Tablet(s) PO QD 04/11/20 17 01/14/2018 Inactive clonidine HCl 0.1 mg tablet RxNorm: 143728 1 Tablet(s) PO QID 04/0508/19/2017 Inactive baclofen 20 mg tablet RxNorm: 450176 1 Tablet(s) PO TID as needed for muscle spasm 04/02/2017 06/18/2017 Inactive Premarin 1.25 mg tablet RxNorm: 696591 1-2 Tablet(s) PO QD 03/20/20 17 04/10/2017 Inactive hydrocodone 10 mg-acetaminophen 325 mg tablet RxNorm: 989823 1-2 Tablet(s) QID as needed for pain MUST LAST 30 DAYS 03/14/2017 01/21/2019 Inactive (Response to an electronic controlled substance refill request - RxReferenceNumber: [id number]) metoprolol tartrate 100 mg tablet RxNorm: 574595 1 Tablet(s) PO BID 02/12/2017 08/20/2017 Inactive hydrocodone 10 mg-acetaminophen 325 mg tablet RxNorm: 301686 1-2 Tablet(s) QID as needed for pain MUST LAST 30 DAYS 02/08/2017 03/09/2017 Inactive (Response to an electronic controlled substance refill request - [id number]) metoprolol tartrate 100 mg tablet RxNorm: 449834 TAKE O NE TABLET BY MOUTH TWICE A DAY 01/11/2017 02/12/2017 Inactive metoprolol tartrate 100 mg tablet RxNorm: 187017 1 Tablet(s) PO BID 12/18/2016 12/17/2016 Inactive metoprolol tartrate 100 mg tablet RxNorm: 443479 1 Tablet(s) PO BID 12/18/2016 01/10/2017 Inactive furosemide 40 mg tablet RxNorm: 420984 1 Tablet(s) PO Q AM prn edema--take with potassium 12/13/2016 02/10/2017 Inactive amitriptyline 100 mg tablet RxNorm: 171535 1 Tablet(s) PO QHS 11/2812/12/2016 Inactive baclofen 20 mg tablet RxNorm: 584585 1 Tablet(s) PO TID as needed for muscle spasm 11/14/2016 04/01/2017 Inactive triamterene 75 mg-hydrochlorothiazide 50 mg tablet RxNorm: 3 57853 1 Tablet(s) PO QD 11/14/2016 11/13/2016 Inactive metolazone 2.5 mg tablet RxNorm: 375060 TAKE ONE TABLET BY MOUTH DAILY NEEDED FOR EDEMA 11/14/2016 12/12/2016 Inactive triamterene 75 mg-hydrochlorothiazide 50 mg tablet RxNorm: 3 67705 1 Tablet(s) PO QD 11/14/2016 07/18/2017 Inactive amitriptyline 50 mg tablet RxNorm: 663677 TAKE ONE TABL ET BY MOUTH AT BEDTIME NEEDED FOR SLEEP 11/14/2016 11/27/2016 Inactive Cymbalta 60 mg capsule,delayed release RxNorm: 377105 1 Capsule (s) PO QHS 11/14/2016 12/12/2016 Inactive clonidine HCl 0.1 mg tablet RxNorm: 530356 1 Tablet(s) PO QID 11/1304/04/2017 Inactive amitriptyline 50 mg tablet RxNorm: 206530 1 Tablet(s) P O QHS as needed for sleep 11/01/2016 11/27/2016 Inactive duloxetine 60 mg capsule,delayed release RxNorm: 848249 TAKE ONE CAPSULE BY MOUTH DAILY 10/20/2016 01/17/2017 Inactive allopurinol 300 mg tablet RxNorm: 069574 TAKE ONE TABLET BY LOPEZ TH DAILY 10/20/2016 01/16/2017 Inactive Lyrica 75 mg capsule RxNorm: 827751 TAKE ONE CAPSULE BY MOUTH EVERY NIGHT AT BEDTIME 10/20/2016 12/10/2016 Inactive Klor-Con 8 mEq tablet,extended release RxNorm: 991669 T FARRUKH ONE TABLET BY MOUTH TWICE A DAY 10/20/2016 01/17/2017 Inactive Celebrex 200 mg capsule RxNorm: 693709 TAKE ONE CAPSULE BY MOUT H TWICE A DAY 10/20/2016 07/18/2017 Inactive Bystolic 10 mg tablet RxNorm: 598518 TAKE ONE TABLET BY MOUTH EVERY NIGHT AT BEDTIME 10/20/2016 12/17/2016 Inactive amlodipine 5 mg-benazepril 20 mg capsule RxNorm: 134147 TAKE ONE CAPSULE BY MOUTH EVERY NIGHT AT BEDTIME -- TO REPLACE AMLODOPINE 10/20/20162016 Inactive Lipitor 10 mg tablet RxNorm: 615390 TAKE ONE TABLET BY MOUTH EVERY NIGHT AT BEDTIME 10/20/2016 01/17/2017 Inactive alprazolam 0.5 mg tablet RxNorm: 328192 3 Tablet(s) PO QHS as needed for sleep/anxiety 09/20/2016 10/31/2016 Inactive Tamiflu 75 mg capsule RxNorm: 095476 1 Capsule(s) PO QD 09/19/2016 Inactive Lyrica 75 mg capsule RxNorm: 136778 1 Capsule(s) PO QHS 09/19/2016 Inactive prednisone 20 mg tablet RxNorm: 130956 1 Tablet(s) PO QD 08/10/2016 1 10/17/2015 Inactive doxycycline hyclate 100 mg capsule RxNorm: 0226497 1 Capsule(s) PO BID 08/10/2016 08/19/2016 Inactive Medrol (Udstin) 4 mg tablets in a dose pack RxNorm: 835382 Tablet(s) PO As Directed 07/31/2016 08/22/2016 Inactive Singulair 10 mg tablet RxNorm: 540193 TAKE ONE TABLET BY MOUTH JOSÉ Y 07/27/2016 07/18/2017 Inactive hydrocodone 10 mg-acetaminophen 325 mg tablet RxNorm: 498031 1-2 Tablet(s) QID as needed for pain MUST LAST 30 DAYS 07/26/2016 08/24/2016 Inactive (Response to an electronic controlled substance refill request - RxReferenceNumber: [id number]) alprazolam 0.5 mg tablet RxNorm: 566983 3 Tablet(s) PO QHS as needed for anxiety or sleep 07/26/2016 09/20/2016 Inactive clindamycin 300 mg capsule RxNorm: 790317 1 Capsule(s) PO TID 07/2007/29/2016 Inactive Diflucan 100 mg tablet RxNorm: 384415 1 Tablet(s) PO QD 07/20/2016 Inactive Levaquin 500 mg tablet RxNorm: 068396 1 Tablet(s) PO QD 07/17/2016 Inactive Levaquin 500 mg tablet RxNorm: 043795 1 Tablet(s) PO QD 07/10/2016 Inactive Levaquin 500 mg tablet RxNorm: 383468 1 Tablet(s) PO QD 07/10/2016 Inactive mupirocin 2 % topical ointment RxNorm: 439356 TOP Apply topically to affected areas twice daily 07/06/2016 09/18/2016 Inactive Singulair 10 mg tablet RxNorm: 960446 TAKE ONE TABLET BY MOUTH JOSÉ Y 06/21/2016 01/21/2019 Inactive alprazolam 0.5 mg tablet RxNorm: 854091 TAKE THREE TABL ETS BY MOUTH AT BEDTIME NEEDED FOR SLEEP OR STRESS 05/22/2016 06/20/2016 Inactive triamterene 75 mg-hydrochlorothiazide 50 mg tablet RxNorm: 3 63657 1 Tablet(s) PO QD 04/26/2016 10/21/2016 Inactive Premarin 1.25 mg tablet RxNorm: 801675 1-2 Tablet(s) PO QD 04/26/20 16 03/20/2017 Inactive Klor-Con 8 mEq tablet,extended release RxNorm: 010245 1 Tablet( s) PO BID 04/26/2016 10/19/2016 Inactive Celebrex 200 mg capsule RxNorm: 302310 1 Capsule(s) PO BID TAKE ONE CAPSULE BY MOUTH EVERY DAY 04/26/2016 10/19/2016 Inactive Lipitor 10 mg tablet RxNorm: 880118 1 Tablet(s) PO QHS 04/26/201605/2017 Inactive allopurinol 300 mg tablet RxNorm: 575046 1 Tablet(s) PO QD TAKE ONE TABLET BY MOUTH EVERY DAY 04/26/2016 10/19/2016 Inactive amlodipine 5 mg-benazepril 20 mg capsule RxNorm: 398198 1 Capsule(s) PO QHS replaces amlodopine 04/26/2016 10/19/2016 Inactive duloxetine 60 mg capsule,delayed release RxNorm: 159397 1 Capsu le(s) PO QD 04/26/2016 10/19/2016 Inactive Bystolic 10 mg tablet RxNorm: 071096 1 Tablet(s) PO QHS 04/26/2016 Inactive Singulair 10 mg tablet RxNorm: 809977 1 Tablet(s) PO QD TAKE ONE TABLET BY MOUTH DAILY 04/26/2016 06/20/2016 Inactive clonidine HCl 0.1 mg tablet RxNorm: 268974 1 Tablet(s) PO QID 04/2610/22/2016 Inactive hydrocodone 10 mg-acetaminophen 325 mg tablet RxNorm: 143959 1-2 Tablet(s) QID as needed for pain TAKE ONE TO TWO TABLETS BY MOUTH FOUR TIMES A DAY . MUST LAST 30 DAYS 03/31/2016 04/29/2016 Inactive (Response to an electronic controlled substance refill request - RxReferenceNumber: [id number]) Klor-Con 8 mEq tablet,extended release RxNorm: 666832 T FARRUKH ONE TABLET BY MOUTH TWICE A DAY 03/24/2016 09/29/2019 Inactive prednisone 20 mg tablet RxNorm: 704710 1 Tablet(s) PO QD 03/09/2016 0 03/08/2016 Inactive prednisone 20 mg tablet RxNorm: 833987 1 Tablet(s) PO QD 03/09/2016 0 03/13/2016 Inactive alprazolam 0.5 mg tablet RxNorm: 652376 3 Tablet(s) PO QHS as needed for sleep/stress 03/02/2016 01/21/2019 Inactive mupirocin 2 % topical ointment RxNorm: 634536 TOP twice daily to affected areas of face and neck 02/21/2016 04/25/2016 Inactive clonidine HCl 0.1 mg tablet RxNorm: 983205 TAKE ONE TAB LET BY MOUTH FOUR TIMES A DAY 02/15/2016 09/29/2019 Inactive clonidine HCl 0.1 mg tablet RxNorm: 007899 1 Tablet(s) PO QID 02/1404/25/2016 Inactive Premarin 1.25 mg tablet RxNorm: 975026 1-2 Tablet(s) PO QD 02/15/20 16 03/15/2016 Inactive Klor-Con 8 mEq tablet,extended release RxNorm: 940870 T FARRUKH ONE TABLET BY MOUTH TWICE A DAY 02/15/2016 03/15/2016 Inactive potassium chloride ER 20 mEq tablet,extended release(part/cr yst) RxNorm: 780526 2 Tablet(s) PO BID 02/15/2016 03/15/2016 Inactive Macrobid 100 mg capsule RxNorm: 097514 1 Capsule(s) PO BID 01/24/20 16 01/30/2016 Inactive prednisone 20 mg tablet RxNorm: 033486 Take 3tabs PO QD x 2 days, then 2 tabs PO QD x 2 days, then 1 tab PO QD x 2 days, then 1/2 tab PO QDy x 2 days 12/23/2015 04/25/2016 Inactive Klor-Con 8 mEq tablet,extended release RxNorm: 756233 T FARRUKH ONE TABLET BY MOUTH TWICE A DAY 12/20/2015 02/14/2016 Inactive alprazolam 1 mg tablet RxNorm: 183686 1 1/2 Tablet(s) PO QHS 201501/23/2016 Inactive nystatin 100,000 unit/gram topical cream RxNorm: 584794 APPLY TO AFFECTED AREA(S) TWO TIMES A DAY 11/30/2015 12/14/2015 Inactive Singulair 10 mg tablet RxNorm: 788247 TAKE ONE TABLET BY MOUTH JOSÉ Y 11/18/2015 04/25/2016 Inactive allopurinol 300 mg tablet RxNorm: 860030 1 Tablet(s) PO QD TAKE ONE TABLET BY MOUTH EVERY DAY 10/26/2015 04/22/2016 Inactive Singulair 10 mg tablet RxNorm: 449652 TAKE ONE TABLET BY MOUTH JOSÉ Y 10/26/2015 11/17/2015 Inactive duloxetine 60 mg capsule,delayed release RxNorm: 247773 1 Capsu le(s) PO QD 10/26/2015 04/22/2016 Inactive triamterene 75 mg-hydrochlorothiazide 50 mg tablet RxNorm: 3 78182 1 Tablet(s) PO QD 10/26/2015 11/14/2016 Inactive potassium chloride ER 20 mEq tablet,extended release(part/cr yst) RxNorm: 353534 2 Tablet(s) PO BID 10/26/2015 02/14/2016 Inactive Lipitor 10 mg tablet RxNorm: 956980 1 Tablet(s) PO QHS 10/26/2015 Inactive amlodipine 5 mg-benazepril 20 mg capsule RxNorm: 671212 1 Capsule(s) PO QHS replaces amlodopine 10/26/2015 04/22/2016 Inactive Bystolic 10 mg tablet RxNorm: 606600 1 Tablet(s) PO QHS 10/26/2015 Inactive amlodipine 5 mg-benazepril 20 mg capsule RxNorm: 117266 1 Capsule(s) PO QHS replaces amlodopine 10/06/2015 10/25/2015 Inactive amlodipine 5 mg tablet RxNorm: 969332 1 Tablet(s) PO QHS 09/30/2015 0 04/25/2016 Inactive metolazone 2.5 mg tablet RxNorm: 299784 TAKE ONE TABLET BY MOUTH DAILY NEEDED FOR EDEMA 09/30/2015 01/21/2019 Inactive duloxetine 60 mg capsule,delayed release RxNorm: 342107 1 Capsu le(s) PO QD 09/30/2015 10/25/2015 Inactive cephalexin 500 mg capsule RxNorm: 509235 1 Capsule(s) PO BID 201509/23/2015 Inactive mupirocin 2 % topical ointment RxNorm: 598781 TOP twice daily to affected areas of face and neck 09/14/2015 02/20/2016 Inactive baclofen 20 mg tablet RxNorm: 919408 1 Tablet(s) PO TID as needed for muscle spasm 09/01/2015 11/14/2016 Inactive clonidine HCl 0.1 mg tablet RxNorm: 113778 1 Tablet(s) PO QID 09/0102/14/2016 Inactive alprazolam 1 mg tablet RxNorm: 313422 1 1/2 Tablet(s) PO QHS 201409/09/2015 Inactive baclofen 20 mg tablet RxNorm: 222545 1 Tablet(s) PO TID as needed for muscle spasm 07/23/2015 09/01/2015 Inactive omeprazole 40 mg capsule,delayed release RxNorm: 847505 1 Capsu le(s) PO QD 07/23/2015 04/25/2016 Inactive alprazolam 1 mg tablet RxNorm: 495871 1 1/2 Tablet(s) PO QHS 201408/10/2015 Inactive Bystolic 10 mg tablet RxNorm: 087092 1 Tablet(s) PO BID 06/24/2015 Inactive allopurinol 300 mg tablet RxNorm: 913335 1 Tablet(s) PO QD TAKE ONE TABLET BY MOUTH EVERY DAY 06/23/2015 10/20/2015 Inactive alprazolam 1 mg tablet RxNorm: 324043 1 1/2 Tablet(s) PO QHS 201407/06/2015 Inactive clonidine HCl 0.1 mg tablet RxNorm: 852446 1 Tablet(s) PO QID 06/0209/01/2015 Inactive clonidine HCl 0.1 mg tablet RxNorm: 125217 1 Tablet(s) PO QID 06/0206/01/2015 Inactive Cymbalta 60 mg capsule,delayed release RxNorm: 710452 1 Capsule (s) PO QHS 06/02/2015 08/30/2015 Inactive Cymbalta 60 mg capsule,delayed release RxNorm: 528598 1 Capsule (s) PO QHS 06/02/2015 06/01/2015 Inactive clonidine HCl 0.1 mg tablet RxNorm: 207527 1 Tablet(s) PO TID 05/3106/01/2015 Inactive replaces 0.2mg dose metolazone 2.5 mg tablet RxNorm: 935392 TAKE ONE TABLET BY MOUTH DAILY NEEDED FOR EDEMA 05/21/2015 06/19/2015 Inactive Singulair 10 mg tablet RxNorm: 674837 TAKE ONE TABLET BY MOUTH JOSÉ Y 05/21/2015 10/17/2015 Inactive Cymbalta 30 mg capsule,delayed release RxNorm: 052633 1 Capsule (s) PO QHS 05/20/2015 11/14/2016 Inactive betamethasone valerate 0.1 % topical cream RxNorm: 705918 Appli cation TOP BID 05/10/2015 04/25/2016 Inactive Bactroban 2 % topical ointment RxNorm: 493163 Application TOP BID 0 05/10/2015 06/20/2015 Inactive baclofen 20 mg tablet RxNorm: 526915 1 Tablet(s) PO TID as needed 0 04/26/2015 07/23/2015 Inactive Lipitor 10 mg tablet RxNorm: 326682 1 Tablet(s) PO QHS 04/26/201508/2016 Inactive clonidine HCl 0.1 mg tablet RxNorm: 937417 1 Tablet(s) PO TID 04/2605/30/2015 Inactive replaces 0.2mg dose Klor-Con 8 mEq tablet,extended release RxNorm: 562518 1 Tablet( s) PO BID 04/26/2015 04/25/2016 Inactive metolazone 2.5 mg tablet RxNorm: 674901 1 Tablet(s) PO QD as ne eded for edema 04/26/2015 04/25/2015 Inactive triamterene 75 mg-hydrochlorothiazide 50 mg tablet RxNorm: 3 24164 1 Tablet(s) PO QD 04/26/2015 10/22/2015 Inactive Premarin 1.25 mg tablet RxNorm: 674989 1-2 Tablet(s) PO QD 04/26/20 15 10/22/2015 Inactive Bystolic 10 mg tablet RxNorm: 119655 1 Tablet(s) PO QAM TAKE ONE TABLET BY MOUTH EVERY MORNING 04/23/2015 06/23/2015 Inactive clonidine HCl 0.1 mg tablet RxNorm: 274985 1 Tablet(s) PO TID 03/2304/25/2015 Inactive replaces 0.2mg dose nystatin 100,000 unit/gram topical cream RxNorm: 178982 Applica tion TOP BID 03/23/2015 06/20/2015 Inactive baclofen 20 mg tablet RxNorm: 863575 1 Tablet(s) PO TID as needed 0 03/23/2015 04/25/2015 Inactive Premarin 1.25 mg tablet RxNorm: 221096 1-2 Tablet(s) PO QD 03/23/20 15 04/25/2015 Inactive Klor-Con 8 mEq tablet,extended release RxNorm: 510050 1 Tablet( s) PO BID 03/23/2015 04/25/2015 Inactive cefdinir 300 mg capsule RxNorm: 129432 2 Capsule(s) PO QD 03/16/2015 03/25/2015 Inactive baclofen 20 mg tablet RxNorm: 731986 1 Tablet(s) PO TID as needed 0 03/02/2015 03/22/2015 Inactive allopurinol 300 mg tablet RxNorm: 504895 1 Tablet(s) PO QD TAKE ONE TABLET BY MOUTH EVERY DAY 02/22/2015 05/22/2015 Inactive Klor-Con M20 mEq tablet,extended release RxNorm: 760196 2 Tablet(s) PO BID to use with lasix 02/22/2015 06/20/2015 Inactive clonidine HCl 0.1 mg tablet RxNorm: 286579 1 Tablet(s) PO TID 02/1903/22/2015 Inactive replaces 0.2mg dose Lipitor 10 mg tablet RxNorm: 487675 1 Tablet(s) PO QHS 01/20/201506/2015 Inactive Lipitor 10 mg tablet RxNorm: 508335 1 Tablet(s) PO QHS 01/20/2015 Inactive Singulair 10 mg tablet RxNorm: 000784 1 Tablet(s) PO QD TAKE ONE TABLET BY MOUTH EVERY DAY 11/20/2014 05/18/2015 Inactive Lipitor 10 mg tablet RxNorm: 159001 1 Tablet(s) PO QHS 11/20/201408/2015 Inactive allopurinol 300 mg tablet RxNorm: 310917 1 Tablet(s) PO QD TAKE ONE TABLET BY MOUTH EVERY DAY 11/20/2014 02/16/2015 Inactive Bystolic 10 mg tablet RxNorm: 003022 1 Tablet(s) PO QAM TAKE ONE TABLET BY MOUTH EVERY MORNING 11/20/2014 04/22/2015 Inactive Klor-Con 8 mEq tablet,extended release RxNorm: 529516 1 Tablet( s) PO BID 11/20/2014 02/17/2015 Inactive baclofen 20 mg tablet RxNorm: 750211 1 Tablet(s) PO TID as needed 0 11/20/2014 01/21/2019 Inactive baclofen 20 mg tablet RxNorm: 313060 1 Tablet(s) PO TID as needed 0 10/27/2014 11/19/2014 Inactive baclofen 20 mg tablet RxNorm: 903554 1 Tablet(s) PO TID as needed 0 10/26/2014 03/01/2015 Inactive allopurinol 300 mg tablet RxNorm: 038313 1 Tablet(s) PO QD TAKE ONE TABLET BY MOUTH EVERY DAY 10/26/2014 11/20/2014 Inactive Bystolic 10 mg tablet RxNorm: 294256 1 Tablet(s) PO QAM TAKE ONE TABLET BY MOUTH EVERY MORNING 10/26/2014 11/20/2014 Inactive clonidine HCl 0.1 mg tablet RxNorm: 799409 1 Tablet(s) PO TID 09/2805/27/2019 Inactive replaces 0.2mg dose clonidine HCl 0.1 mg tablet RxNorm: 275218 1 Tablet(s) PO TID 09/2802/18/2015 Inactive replaces 0.2mg dose baclofen 20 mg tablet RxNorm: 630310 1 Tablet(s) PO TID as needed 1 11/01/2013 08/30/2014 Inactive Lipitor 10 mg tablet RxNorm: 765473 1 Tablet(s) PO QHS 08/31/2014 Inactive baclofen 20 mg tablet RxNorm: 780293 1 Tablet(s) PO TID as needed 1 11/01/2013 10/26/2014 Inactive triamterene 75 mg-hydrochlorothiazide 50 mg tablet RxNorm: 3 09710 1 Tablet(s) PO QD 08/31/2014 02/26/2015 Inactive Klor-Con 8 mEq tablet,extended release RxNorm: 260175 1 Tablet( s) PO BID 08/31/2014 11/20/2014 Inactive baclofen 20 mg tablet RxNorm: 343070 1 Tablet(s) PO TID as needed 1 09/30/2013 10/25/2014 Inactive baclofen 20 mg tablet RxNorm: 646124 1 Tablet(s) PO TID as needed 1 09/30/2013 08/31/2014 Inactive omeprazole 40 mg capsule,delayed release RxNorm: 344514 1 Capsu le(s) PO QD 07/21/2014 07/23/2015 Inactive Flonase 50 mcg/actuation nasal spray,suspension RxNorm: 8963 23 1 [place] NASAL BID 07/15/2014 04/09/2017 Inactive hydrocodone 10 mg-acetaminophen 325 mg tablet RxNorm: 214590 1-2 Tablet(s) QID as needed for pain TAKE ONE TO TWO TABLETS BY MOUTH FOUR TIMES A DAY . MUST LAST 30 DAYS 06/30/2014 07/27/2014 Inactive (Response to an electronic controlled substance refill request - [facility] [id number]) baclofen 20 mg tablet RxNorm: 235912 1 Tablet(s) PO TID as needed 1 07/31/2014 Inactive Singulair 10 mg tablet RxNorm: 651800 1 Tablet(s) PO QD TAKE ONE TABLET BY MOUTH EVERY DAY 05/25/2014 11/20/2014 Inactive Bystolic 10 mg tablet RxNorm: 450411 TAKE ONE TABLET BY MOUTH E VERY MORNING 05/25/2014 09/21/2014 Inactive allopurinol 300 mg tablet RxNorm: 253484 1 Tablet(s) PO QD TAKE ONE TABLET BY MOUTH EVERY DAY 05/25/2014 10/21/2014 Inactive baclofen 20 mg tablet RxNorm: 946120 1 Tablet(s) PO TID as needed 0 05/25/2014 06/29/2014 Inactive allopurinol 300 mg tablet RxNorm: 062444 TAKE ONE TABLET BY LOPEZ TH EVERY DAY 05/25/2014 09/21/2014 Inactive Singulair 10 mg tablet RxNorm: 095790 1 Tablet(s) PO QD TAKE ONE TABLET BY MOUTH EVERY DAY 05/25/2014 05/24/2014 Inactive Bystolic 10 mg tablet RxNorm: 946035 1 Tablet(s) PO QAM TAKE ONE TABLET BY MOUTH EVERY MORNING 05/25/2014 10/21/2014 Inactive metolazone 2.5 mg tablet RxNorm: 873064 1 Tablet(s) PO QD as ne eded for edema 05/18/2014 04/25/2015 Inactive Lasix 40 mg tablet RxNorm: 103635 1 Tablet(s) PO QAM s hould take potassium supplementation with this medication 05/14/2014 05/17/2014 Inactive hydrocodone 10 mg-acetaminophen 325 mg tablet RxNorm: 876849 1-2 Tablet(s) QID as needed for pain TAKE ONE TO TWO TABLETS BY MOUTH FOUR TIMES A DAY . MUST LAST 30 DAYS 05/07/2014 06/05/2014 Inactive (Response to an electronic controlled substance refill request - RxReferenceNumber: [id number]) alprazolam 0.5 mg tablet RxNorm: 690748 TAKE ONE TABLET BY MOUTH TWICE A DAY , MUST LAST 30 DAYS 05/07/2014 05/22/2016 Inactive (Response to a n electronic controlled substance refill request - RxReferenceNumber: [id number]) diclofenac sodium 75 mg tablet,delayed release RxNorm: 85083 6 1 Tablet(s) PO BID for pain 04/24/2014 07/20/2014 Inactive Celebrex 200 mg capsule RxNorm: 614539 TAKE ONE CAPSULE BY MOUT H EVERY DAY 04/24/2014 07/20/2014 Inactive alprazolam 0.5 mg tablet RxNorm: 571271 TAKE ONE TABLET BY MOUTH TWICE A DAY , MUST LAST 30 DAYS 03/24/2014 04/22/2014 Inactive (Response to a n electronic controlled substance refill request - RxReferenceNumber: [id number]) diclofenac sodium 75 mg tablet,delayed release RxNorm: 55564 6 1 Tablet(s) PO BID for pain 03/24/2014 04/24/2014 Inactive clonidine HCl 0.1 mg tablet RxNorm: 753354 1 Tablet(s) PO TID 03/2409/28/2014 Inactive replaces 0.2mg dose Klor-Con 8 mEq tablet,extended release RxNorm: 402738 1 Tablet( s) PO BID 02/26/2014 08/31/2014 Inactive diclofenac sodium 75 mg tablet,delayed release RxNorm: 06711 6 1 Tablet(s) PO BID for pain 02/25/2014 03/24/2014 Inactive hydrocodone 10 mg-acetaminophen 325 mg tablet RxNorm: 710410 1-2 Tablet(s) QID as needed for pain TAKE ONE TO TWO TABLETS BY MOUTH FOUR TIMES A DAY . MUST LAST 30 DAYS 02/25/2014 03/26/2014 Inactive (Response to an electronic controlled substance refill request - RxReferenceNumber: [id number]) alprazolam 0.5 mg tablet RxNorm: 954418 Tablet(s) PO BI D as needed for anxiety TAKE ONE TABLET BY MOUTH TWICE A DAY , MUST LAST 30 DAYS 02/25/2014 Inactive (Response to an electronic controlled [place] bstance refill request - RxReferenceNumber: [id number]) [AttnRPh: Saving apply/adjudicate RxGRP:SG20 RxBIN:[id number] RxPCN: ID#:[id number]] alprazolam 0.5 mg tablet RxNorm: 098379 Tablet(s) TAKE ONE TABLET BY MOUTH TWICE A DAY , MUST LAST 30 DAYS 01/27/2014 02/24/2014 Inactive (Respo nse to an electronic controlled substance refill request - RxReferenceNumber: [id number]) [AttnRPh: Saving apply/adjudicate RxGRP:SG20 RxBIN:[id number] RxPCN: ID#:[id number]] hydrocodone 10 mg-acetaminophen 325 mg tablet RxNorm: 906067 1-2 Tablet(s) QID as needed for pain TAKE ONE TO TWO TABLETS BY MOUTH FOUR TIMES A DAY . MUST LAST 30 DAYS 01/27/2014 02/24/2014 Inactive (Response to an electronic controlled substance refill request - RxReferenceNumber: [id number]) alprazolam 0.5 mg tablet RxNorm: 110075 TAKE ONE TABLET BY MOUTH TWICE A DAY , MUST LAST 30 DAYS 01/27/2014 01/26/2014 Inactive (Response to a n electronic controlled substance refill request - RxReferenceNumber: [id number]) Premarin 1.25 mg tablet RxNorm: 401525 1-2 Tablet(s) PO QD 01/28/20 14 07/25/2014 Inactive alprazolam 0.5 mg tablet RxNorm: 309043 TAKE ONE TABLET BY MOUTH TWICE A DAY , MUST LAST 30 DAYS 01/27/2014 01/27/2014 Inactive (Response to a n electronic controlled substance refill request - RxReferenceNumber: [id number]) hydrocodone 10 mg-acetaminophen 325 mg tablet RxNorm: 726696 TAKE ONE TO TWO TABLETS BY MOUTH FOUR TIMES A DAY . MUST LAST 30 DAYS 01/27/20142013 Inactive (Response to an electronic controlled [place] bstance refill request - RxReferenceNumber: [id number]) Celebrex 200 mg capsule RxNorm: 643776 1 Capsule(s) PO QD TAKE ONE CAPSULE BY MOUTH EVERY DAY 12/29/2013 04/27/2014 Inactive hydrocodone 10 mg-acetaminophen 325 mg tablet RxNorm: 525787 1-2 Tablet(s) PO QID as needed for severe pain 12/29/2013 01/27/2014 Inactive allopurinol 300 mg tablet RxNorm: 097869 1 Tablet(s) PO QD TAKE ONE TABLET BY MOUTH EVERY DAY 12/29/2013 05/24/2014 Inactive alprazolam 0.5 mg tablet RxNorm: 503086 TAKE ONE TABLET BY MOUTH TWICE A DAY , MUST LAST 30 DAYS 12/29/2013 01/27/2014 Inactive (Response to a n electronic controlled substance refill request - RxReferenceNumber: [id number]) Celebrex 200 mg capsule RxNorm: 859098 1 Capsule(s) PO QD TAKE ONE CAPSULE BY MOUTH EVERY DAY 12/29/2013 12/29/2013 Inactive Bystolic 10 mg tablet RxNorm: 327942 1 Tablet(s) PO QAM TAKE ONE TABLET BY MOUTH EVERY MORNING 12/29/2013 05/24/2014 Inactive Bystolic 10 mg tablet RxNorm: 035881 1 Tablet(s) PO QAM TAKE ONE TABLET BY MOUTH EVERY MORNING 12/29/2013 12/29/2013 Inactive Singulair 10 mg tablet RxNorm: 271460 1 Tablet(s) PO QD TAKE ONE TABLET BY MOUTH EVERY DAY 12/29/2013 05/25/2014 Inactive hydrocodone 10 mg-acetaminophen 325 mg tablet RxNorm: 780438 TAKE ONE TO TWO TABLETS BY MOUTH FOUR TIMES A DAY . MUST LAST 30 DAYS 12/29/20132013 Inactive (Response to an electronic controlled [place] bstance refill request - RxReferenceNumber: [id number]) Trazadone 75mg Tablet RxNorm: 1 Tablet(s) PO QHS as needed 03/23/2014 Inactive Trazadone 75mg Tablet RxNorm: 1 Tablet(s) PO QHS 12/24/20132014 Inactive Soma 350 mg tablet RxNorm: 644771 Tablet(s) PO TAKE ON E TABLET BY MOUTH THREE TIMES A DAY NEEDED FOR MUSCLE SPASMS. THIS MUST LAST 30 DAYS BETWEEN REFILLS. 12/10/2013 12/22/2013 Inactive (Appended: Cont rolled substance eRx refill - RxReferenceNumber: [id number]) diclofenac sodium 75 mg tablet,delayed release RxNorm: 03874 6 1 Tablet(s) PO BID for pain 12/10/2013 02/24/2014 Inactive allopurinol 300 mg tablet RxNorm: 651349 1 Tablet(s) PO QD 11/20/19 14 12/29/2013 Inactive alprazolam 0.5 mg tablet RxNorm: 478143 2 Tablet(s) PO BID 11/13/19 14 12/29/2013 Inactive prn clonidine 0.1 mg tablet RxNorm: 523170 1 Tablet(s) PO TID 11/12/2013 02/09/2014 Inactive replaces 0.2mg dose Klor-Con M20 mEq tablet,extended release RxNorm: 071951 2 Tablet(s) PO BID to use with lasix 11/12/2013 05/10/2014 Inactive Singulair 10 mg tablet RxNorm: 467189 1 Tablet(s) PO QD 11/12/2013 Inactive hydrocodone 10 mg-acetaminophen 325 mg tablet RxNorm: 233524 1-2 Tablet(s) PO QID as needed for severe pain 11/12/2013 12/28/2013 Inactive Bystolic 10 mg tablet RxNorm: 844460 1 Tablet(s) PO QAM 11/12/2013 Inactive Soma 350 mg tablet RxNorm: 907314 Tablet(s) PO TAKE ON E TABLET BY MOUTH THREE TIMES A DAY NEEDED FOR MUSCLE SPASMS. THIS MUST LAST 30 DAYS BETWEEN REFILLS. 10/13/2013 12/10/2013 Inactive (Appended: Cont rolled substance eRx refill - RxReferenceNumber: [id number]) hydrocodone 10 mg-acetaminophen 325 mg tablet RxNorm: 023065 1-2 Tablet(s) PO QID as needed for severe pain 10/03/2013 11/11/2013 Inactive diclofenac sodium 75 mg tablet,delayed release RxNorm: 89645 8 1 Tablet(s) PO BID for pain 09/11/2013 12/10/2013 Inactive alprazolam 0.5 mg tablet RxNorm: 871858 1 Tablet(s) PO BID May refill on 04/26/13 09/01/2013 10/30/2013 Inactive prn hydrocodone 10 mg-acetaminophen 325 mg tablet RxNorm: 443338 1-2 Tablet(s) PO QID as needed for severe pain 09/01/2013 10/02/2013 Inactive triamterene 75 mg-hydrochlorothiazide 50 mg tablet RxNorm: 3 47828 1 Tablet(s) PO QD 08/04/2013 08/31/2014 Inactive cyclobenzaprine 10 mg tablet RxNorm: 638664 1 Tablet(s) PO TID prn spasm 08/04/2013 08/13/2013 Inactive clonidine 0.1 mg tablet RxNorm: 363139 1 Tablet(s) PO TID 08/04/2013 11/11/2013 Inactive replaces 0.2mg dose cyclobenzaprine 10 mg tablet RxNorm: 173028 1 Tablet(s) PO TID prn spasm 07/23/2013 08/01/2013 Inactive hydrocodone 10 mg-acetaminophen 325 mg tablet RxNorm: 857028 2 1-2 Tablet(s) PO QID as needed for severe pain 06/09/2013 08/07/2013 Inactive Singulair 10 mg tablet RxNorm: 677988 1 Tablet(s) PO QD 05/29/2013 Inactive Klor-Con 8 mEq tablet,extended release RxNorm: 607890 1 Tablet( s) PO BID 05/29/2013 02/26/2014 Inactive allopurinol 300 mg tablet RxNorm: 882637 1 Tablet(s) PO QD 05/29/20 13 11/19/2013 Inactive Bystolic 10 mg tablet RxNorm: 514365 1 Tablet(s) PO QAM take one daily in the morning. 05/29/2013 11/11/2013 Inactive scopolamine 1.5 mg 72 hr Transderm Patch RxNorm: 739506 Application TD Q72H for motion sickness 05/26/2013 07/22/2013 Inactive Soma 350 mg tablet RxNorm: 838782 1 Tablet(s) PO TID as needed for spasm 05/19/2013 10/13/2013 Inactive diclofenac sodium 75 mg tablet,delayed release RxNorm: 71692 8 1 Tablet(s) PO BID for pain 05/14/2013 07/22/2013 Inactive allopurinol 300 mg tablet RxNorm: 832057 1 Tablet(s) PO QD 04/25/20 13 05/28/2013 Inactive alprazolam 0.5 mg tablet RxNorm: 001725 1 Tablet(s) PO BID May refill on 04/26/13 04/25/2013 06/23/2013 Inactive prn Celebrex 200 mg capsule RxNorm: 165625 1 Capsule(s) PO QD 04/16/2013 12/29/2013 Inactive alprazolam 0.5 mg tablet RxNorm: 931536 1 Tablet(s) PO BID May refill on 04/26/13 04/16/2013 04/24/2013 Inactive prn Soma 350 mg tablet RxNorm: 748074 1 Tablet(s) PO TID as needed for spasm 04/16/2013 No Stop Date Active Lasix 40 mg tablet RxNorm: 465754 1 Tablet(s) PO QAM s hould take potassium supplementation with this medication 04/16/2013 06/14/2013 Inactive clonidine 0.1 mg tablet RxNorm: 849610 1 Tablet(s) PO TID 04/16/2013 08/03/2013 Inactive replaces 0.2mg dose prednisone 20 mg tablet RxNorm: 808613 1 Tablet(s) PO BID 04/16/2013 04/20/2013 Inactive diclofenac sodium 75 mg tablet,delayed release RxNorm: 20260 8 1 Tablet(s) PO BID for pain 04/14/2013 05/13/2013 Inactive hydrocodone 10 mg-acetaminophen 325 mg tablet RxNorm: 477106 2 1-2 Tablet(s) PO QID as needed for severe pain 04/14/2013 No Stop Date Active Lasix 40 mg tablet RxNorm: 723094 1 Tablet(s) PO QAM s hould take potassium supplementation with this medication 03/31/2013 04/15/2013 Inactive Celebrex 200 mg capsule RxNorm: 026384 1 Capsule(s) PO QD 03/31/2013 04/15/2013 Inactive alprazolam 0.5 mg tablet RxNorm: 149358 1 Tablet(s) PO BID 03/28/20 13 04/15/2013 Inactive prn hydrocodone 10 mg-acetaminophen 325 mg tablet RxNorm: 645907 2 1-2 Tablet(s) PO QID as needed for severe pain 03/10/2013 No Stop Date Active metformin ER 500 mg 24 hr tablet,extended release RxNorm: 86 1018 1 Tablet(s) PO QD 03/06/2013 07/22/2013 Inactive clindamycin 300 mg capsule RxNorm: 523333 2 Capsule(s) PO TID 03/0503/14/2013 Inactive Zaroxolyn 2.5 mg tablet RxNorm: 557701 1 Tablet(s) PO QAM 03/05/2013 05/19/2015 Inactive amlodipine 10 mg tablet RxNorm: 486023 1 Tablet(s) PO QD 03/03/2013 0 05/25/2013 Inactive Norvasc 10 mg tablet RxNorm: 742278 1 Tablet(s) PO QD 02/28/201307/11 Inactive Celebrex 200 mg capsule RxNorm: 833752 1 Capsule(s) PO QD 02/28/2013 03/30/2013 Inactive diclofenac sodium 75 mg tablet,delayed release RxNorm: 29225 8 1 Tablet(s) PO BID for pain 02/14/2013 03/15/2013 Inactive Soma 350 mg tablet RxNorm: 538743 1 Tablet(s) PO TID as needed for spasm 02/14/2013 No Stop Date Active hydrocodone 10 mg-acetaminophen 325 mg tablet RxNorm: 812426 2 1-2 Tablet(s) PO QID as needed for severe pain 02/14/2013 No Stop Date Active Norvasc 10 mg tablet RxNorm: 487283 1 Tablet(s) PO QD 02/10/201302/09 Inactive Celebrex 200 mg capsule RxNorm: 259634 1 Capsule(s) PO QD 01/27/2013 01/26/2013 Inactive Premarin 1.25 mg tablet RxNorm: 240462 1-2 Tablet(s) PO QD 01/28/20 13 06/25/2013 Inactive alprazolam 0.5 mg tablet RxNorm: 186694 1 Tablet(s) PO BID 01/28/20 13 02/25/2013 Inactive prn amlodipine 5 mg tablet RxNorm: 810836 1 Tablet(s) PO QD 01/27/2013 Inactive Celebrex 200 mg capsule RxNorm: 718495 1 Capsule(s) PO QD 01/27/2013 02/27/2013 Inactive gabapentin 600 mg tablet RxNorm: 626772 1 Tablet(s) PO QHS 01/16/20 13 07/22/2013 Inactive Soma 350 mg tablet RxNorm: 345679 1 Tablet(s) PO TID as needed for spasm 01/15/2013 No Stop Date Active hydrocodone 10 mg-acetaminophen 325 mg tablet RxNorm: 939195 2 1-2 Tablet(s) PO QID as needed for severe pain 01/15/2013 No Stop Date Active Soma 350 mg tablet RxNorm: 729086 1 Tablet(s) PO TID as needed for spasm 01/13/2013 No Stop Date Active alprazolam 0.5 mg tablet RxNorm: 177483 1 Tablet(s) PO BID 12/31/19 13 01/26/2013 Inactive prn diclofenac sodium 75 mg tablet,delayed release RxNorm: 10568 8 1 Tablet(s) PO BID for pain 12/09/2012 01/07/2013 Inactive gabapentin 600 mg tablet RxNorm: 958252 1 Tablet(s) PO QHS 12/10/19 13 01/07/2013 Inactive hydrocodone 10 mg-acetaminophen 325 mg tablet RxNorm: 093540 2 1-2 Tablet(s) PO QID as needed for severe pain 12/02/2012 No Stop Date Active Levaquin 750 mg tablet RxNorm: 240738 1 Tablet(s) PO QD 11/21/2012 Inactive Singulair 10 mg tablet RxNorm: 966565 1 Tablet(s) PO QD 11/11/2012 Inactive clonidine 0.2 mg tablet RxNorm: 158251 1 Tablet(s) PO TID 11/11/2012 04/15/2013 Inactive alprazolam 0.5 mg tablet RxNorm: 149800 1 Tablet(s) PO BID 11/12/19 13 12/10/2012 Inactive prn Klor-Con 8 mEq tablet,extended release RxNorm: 435322 1 Tablet( s) PO BID 11/11/2012 03/04/2013 Inactive hydrocodone 10 mg-acetaminophen 325 mg tablet RxNorm: 230600 2 1-2 Tablet(s) PO QID as needed for severe pain 11/06/2012 No Stop Date Active alprazolam 0.5 mg tablet RxNorm: 577223 1 Tablet(s) PO BID 10/15/19 13 11/10/2012 Inactive prn hydrocodone-acetaminophen 10 mg-325 mg tablet RxNorm: 692336 2 1-2 Tablet(s) PO QID as needed for severe pain 10/10/2012 10/09/2012 Inactive allopurinol 300 mg tablet RxNorm: 998864 1 Tablet(s) PO QD 09/20/19 13 12/18/2012 Inactive alprazolam 0.5 mg tablet RxNorm: 062166 1 Tablet(s) PO BID 09/17/19 13 10/14/2012 Inactive prn hydrocodone-acetaminophen 10 mg-325 mg tablet RxNorm: 911706 2 1-2 Tablet(s) PO QID as needed for severe pain 08/22/2012 08/21/2012 Inactive Norvasc 10 mg tablet RxNorm: 860486 1 Tablet(s) PO QD 08/12/201201/10 Inactive Premarin 1.25 mg tablet RxNorm: 766078 1-2 Tablet(s) PO QD 07/30/20 12 12/26/2012 Inactive alprazolam 0.5 mg tablet RxNorm: 887693 1 Tablet(s) PO BID 07/29/20 12 08/27/2012 Inactive prn Klor-Con 8 mEq tablet,extended release RxNorm: 658993 1 Tablet( s) PO BID 07/29/2012 11/10/2012 Inactive hydrocodone-acetaminophen 10 mg-325 mg tablet RxNorm: 213874 2 1-2 Tablet(s) PO QID as needed for severe pain 07/29/2012 No Stop Date Active Premarin 1.25 mg tablet RxNorm: 259972 1-2 Tablet(s) PO QD 07/29/20 12 07/29/2012 Inactive clonidine 0.2 mg tablet RxNorm: 695735 1 Tablet(s) PO TID 07/29/2012 10/28/2012 Inactive ketorolac 10 mg tablet RxNorm: 986214 1 Tablet(s) PO QID prn he adache 07/18/2012 No Stop Date Active hydrocodone-acetaminophen 10 mg-325 mg tablet RxNorm: 895356 2 1-2 Tablet(s) PO QID as needed for severe pain 07/03/2012 No Stop Date Active amlodipine 5 mg tablet RxNorm: 476153 1 Tablet(s) PO QD 07/02/2012 Inactive allopurinol 300 mg tablet RxNorm: 045173 1 Tablet(s) PO QD 07/02/20 12 09/19/2012 Inactive Celebrex 200 mg capsule RxNorm: 070641 1 Capsule(s) PO QD for j oint pain 06/26/2012 10/23/2012 Inactive diclofenac sodium 75 mg tablet,delayed release RxNorm: 35708 8 1 Tablet(s) PO BID for pain 06/19/2012 09/16/2012 Inactive hydrocodone-acetaminophen 10 mg-325 mg tablet RxNorm: 794724 2 1-2 Tablet(s) PO QID as needed for severe pain 06/10/2012 No Stop Date Active alprazolam 0.5 mg tablet RxNorm: 396673 1 Tablet(s) PO BID 06/03/20 12 07/02/2012 Inactive prn ketorolac 10 mg tablet RxNorm: 485645 1 Tablet(s) PO Q8H 05/27/2012 0 01/21/2019 Inactive as needed for headache hydrocodone-acetaminophen 10 mg-325 mg tablet RxNorm: 083287 2 1-2 Tablet(s) PO QID as needed for severe pain 05/15/2012 No Stop Date Active allopurinol 300 mg tablet RxNorm: 419154 1 Tablet(s) PO QD 05/14/20 12 06/12/2012 Inactive allopurinol 300 mg tablet RxNorm: 830512 1 Tablet(s) PO QD 05/14/20 12 05/13/2012 Inactive amlodipine 5 mg tablet RxNorm: 946966 1 Tablet(s) PO QD 05/01/2012 Inactive amlodipine 5 mg Tab RxNorm: 750548 1 Tablet(s) PO QD 05/01/201204/30 Inactive Celebrex 200 mg capsule RxNorm: 968281 1 Capsule(s) PO QD for j oint pain 05/01/2012 06/25/2012 Inactive Singulair 10 mg tablet RxNorm: 326738 1 Tablet(s) PO QD 05/01/2012 Inactive alprazolam 0.5 mg tablet RxNorm: 974531 1 Tablet(s) PO BID 05/01/2005/30/2012 Inactive prn Celebrex 200 mg Cap RxNorm: 797007 1 Capsule(s) PO QD for joint radu n 05/01/2012 04/30/2012 Inactive hydrocodone-acetaminophen 10 mg-325 mg tablet RxNorm: 279362 2 1-2 Tablet(s) PO QID as needed for severe pain 04/19/2012 No Stop Date Active Lasix 40 mg tablet RxNorm: 137631 1 Tablet(s) PO QAM s hould take potassium supplementation with this medication 04/05/2012 06/03/2012 Inactive alprazolam 0.5 mg Tab RxNorm: 598138 1 Tablet(s) PO BID 04/05/2012 Inactive prn hydrocodone-acetaminophen 10 mg-325 mg Tab RxNorm: 8573561 1-2 Tablet(s) PO QID as needed for severe pain 03/25/2012 03/24/2012 Inactive clonidine 0.2 mg Tab RxNorm: 481890 1 Tablet(s) PO TID 03/08/2012 Inactive alprazolam 0.5 mg Tab RxNorm: 701447 1 Tablet(s) PO BID 03/08/2012 Inactive prn Soma 350 mg tablet RxNorm: 697659 1 Tablet(s) PO TID for spasm 02/0903/18/2012 Inactive clonidine 0.2 mg tablet RxNorm: 320749 1 Tablet(s) PO TID 03/08/2012 07/28/2012 Inactive Celebrex 200 mg Cap RxNorm: 919116 1 Capsule(s) PO QD for joint radu n 03/01/2012 04/29/2012 Inactive amlodipine 5 mg Tab RxNorm: 511545 1 Tablet(s) PO QD 02/26/201202/24 Inactive amlodipine 5 mg Tab RxNorm: 837051 1 Tablet(s) PO QD 02/26/201204/25 Inactive Bactroban 2 % Ointment RxNorm: 874048 Application TOP QID to sores 02/23/2012 No Stop Date Active amlodipine 2.5 mg tablet RxNorm: 332086 1 Tablet(s) PO QHS 02/20/2002/25/2012 Inactive doxycycline hyclate 100 mg Cap RxNorm: 2794414 1 Capsule(s) PO BID 02/20/2012 02/29/2012 Inactive hydrocodone-acetaminophen 10 mg-325 mg Tab RxNorm: 1740937 1-2 T ablet(s) PO QID 02/08/2012 No Stop Date Active alprazolam 0.5 mg Tab RxNorm: 774514 1 Tablet(s) PO BID 02/08/2012 Inactive prn Singulair 10 mg Tab RxNorm: 158422 1 Tablet(s) PO QD 02/08/201204/30 Inactive Soma 350 mg Tab RxNorm: 252438 1 Tablet(s) PO TID for spasm 012 03/07/2012 Inactive Soma 350 mg Tab RxNorm: 820379 1 Tablet(s) PO TID for spasm 02/05/2012 Inactive diclofenac sodium 75 mg tablet,delayed release RxNorm: 17656 8 1 Tablet(s) PO BID for pain 02/01/2012 03/18/2012 Inactive Celebrex 200 mg Cap RxNorm: 003072 1 Capsule(s) PO QD for joint radu n 01/30/2012 02/28/2012 Inactive Lasix 40 mg Tab RxNorm: 796630 1 Tablet(s) PO QAM 01/24/2012 03/18/20 12 Inactive potassium chloride ER 20 mEq tablet,extended release(part/cr yst) RxNorm: 808460 2 Tablet(s) PO BID 01/24/2012 02/22/2012 Inactive alprazolam 0.5 mg Tab RxNorm: 748545 1 Tablet(s) PO BID 01/11/2012 Inactive prn hydrocodone-acetaminophen 10 mg-325 mg Tab RxNorm: 1110602 1-2 T ablet(s) PO QID 01/11/2012 No Stop Date Active Ambien 10 mg Tab RxNorm: 129583 1 Tablet(s) PO QHS 01/11/2012 012 Inactive Klor-Con 8 mEq Tab RxNorm: 430288 1 Tablet(s) PO BID 01/11/201201/22 Inactive diclofenac sodium 75 mg Tab, Delayed Release RxNorm: 523447 1 Tablet(s) PO BID for pain 01/10/2012 01/31/2012 Inactive Ambien 10 mg Tab RxNorm: 222951 1 Tablet(s) PO QHS 12/11/2011 012 Inactive alprazolam 0.5 mg Tab RxNorm: 017217 1 Tablet(s) PO BID 12/11/2011 Inactive prn hydrocodone 10 mg-acetaminophen 325 mg tablet RxNorm: 639964 1-2 Tablet(s) PO TID 11/28/2011 No Stop Date Active as needed for pa in - Previous quantity #240, will start dosing for #180 in April 2011 per Doctor Td. Ambien 10 mg Tab RxNorm: 102361 1 Tablet(s) PO QHS 11/09/2011 012 Inactive alprazolam 0.5 mg Tab RxNorm: 592848 1 Tablet(s) PO BID 11/09/2011 Inactive prn hydrocodone-acetaminophen 10 mg-325 mg Tab RxNorm: 5443608 1-2 T ablet(s) PO TID 11/06/2011 No Stop Date Active as needed for pain - Previous quantity #240, will start dosing for #180 in April 2011 per Doctor Td. Singulair 10 mg Tab RxNorm: 526817 1 Tablet(s) PO QD 10/13/201110/12 Inactive Singulair 10 mg Tab RxNorm: 932994 1 Tablet(s) PO QD 10/13/201102/06 Inactive hydrocodone-acetaminophen 10 mg-325 mg Tab RxNorm: 0828189 1-2 T ablet(s) PO TID 10/10/2011 10/09/2011 Inactive as needed for pain - Previous quantity #240, will start dosing for #180 in April 2011 per Doctor Td. hydrocodone-acetaminophen 10 mg-325 mg Tab RxNorm: 4990724 1-2 T ablet(s) PO TID 10/09/2011 No Stop Date Active as needed for pain - Previous quantity #240, will start dosing for #180 in April 2011 per Doctor Td. Klor-Con 8 mEq Tab RxNorm: 610771 1 Tablet(s) PO BID 10/02/201101/09 Inactive triamterene 75 mg-hydrochlorothiazide 50 mg tablet RxNorm: 3 12667 1 Tablet(s) PO QD 09/14/2011 03/06/2013 Inactive Ambien 10 mg Tab RxNorm: 518426 1 Tablet(s) PO QHS 09/14/2011 012 Inactive hydrocodone-acetaminophen 10 mg-325 mg Tab RxNorm: 8655255 1-2 T ablet(s) PO TID 09/14/2011 No Stop Date Active as needed for pain - Previous quantity #240, will start dosing for #180 in April 2011 per Doctor Td. alprazolam 0.5 mg Tab RxNorm: 935047 1 Tablet(s) PO BID 09/14/2011 Inactive prn Zithromax 500 mg Tab RxNorm: 2735220 1 Tablet(s) PO QD 09/13/201106/2012 Inactive prednisone 20 mg Tab RxNorm: 781032 1 Tablet(s) PO BID 08/31/2011 Inactive Ambien 10 mg Tab RxNorm: 185725 1 Tablet(s) PO QHS 08/17/2011 011 Inactive hydrocodone-acetaminophen 10 mg-325 mg Tab RxNorm: 4539055 1-2 T ablet(s) PO TID 08/17/2011 No Stop Date Active as needed for pain - Previous quantity #240, will start dosing for #180 in April 2011 per Doctor Td. clonidine 0.2 mg Tab RxNorm: 396799 1 Tablet(s) PO TID 08/17/201112/2011 Inactive Ambien 10 mg Tab RxNorm: 722016 1 Tablet(s) PO QHS 08/17/2011 019 Inactive alprazolam 0.5 mg Tab RxNorm: 895498 1 Tablet(s) PO BID 08/17/2011 Inactive prn hydrocodone-acetaminophen 10 mg-325 mg Tab RxNorm: 8935710 1-2 T ablet(s) PO TID 08/17/2011 08/16/2011 Inactive as needed for pain - Previous quantity #240, will start dosing for #180 in April 2011 per Doctor Td. Singulair 10 mg Tab RxNorm: 096471 1 Tablet(s) PO QD 08/17/201108/16 Inactive Klor-Con 8 mEq Tab RxNorm: 037519 1 Tablet(s) PO QD 08/17/20112011 Inactive alprazolam 0.5 mg Tab RxNorm: 136967 1 Tablet(s) PO BID 07/20/2011 Inactive prn Ambien 10 mg Tab RxNorm: 642319 1 Tablet(s) PO QHS 07/20/2011 012 Inactive Singulair 10 mg Tab RxNorm: 231273 1 Tablet(s) PO QD 07/20/201107/19 Inactive Premarin 1.25 mg tablet RxNorm: 710020 2 Tablet(s) PO QD 07/20/2011 0 01/21/2019 Inactive Premarin 1.25 mg tablet RxNorm: 880513 1-2 Tablet(s) PO QD 07/20/20 11 12/16/2011 Inactive Premarin 1.25 mg Tab RxNorm: 392608 1-2 Tablet(s) PO QD 07/06/2011 Inactive alprazolam 0.5 mg Tab RxNorm: 642643 1 Tablet(s) PO BID 06/22/2011 Inactive prn alprazolam 0.5 mg Tab RxNorm: 838208 1 Tablet(s) PO BID 06/22/2011 Inactive prn Premarin 1.25 mg Tab RxNorm: 798457 1 Tablet(s) PO QD m ay do 90 day fill if desired 06/22/2011 07/05/2011 Inactive hydrocodone-acetaminophen 10 mg-325 mg Tab RxNorm: 9130959 1-2 T ablet(s) PO TID 06/22/2011 No Stop Date Active as needed for pain - Previous quantity #240, will start dosing for #180 in April 2011 per Doctor Td. clonidine 0.2 mg Tab RxNorm: 844371 1 Tablet(s) PO TID 05/25/201103/2011 Inactive triamterene-hydrochlorothiazide 75 mg-50 mg Tab RxNorm: 3108 18 1 Tablet(s) PO QD 05/25/2011 09/13/2011 Inactive alprazolam 0.5 mg Tab RxNorm: 798059 1 Tablet(s) PO BID 05/25/2011 Inactive prn hydrocodone-acetaminophen 10 mg-325 mg Tab RxNorm: 6232306 1-2 T ablet(s) PO TID 05/25/2011 No Stop Date Active as needed for pain - Previous quantity #240, will start dosing for #180 in April 2011 per Doctor Td. Robaxin-750 750 mg Tab RxNorm: 437753 2 Tablet(s) PO QHS 05/22/2011 1 Inactive prn spasm hydrocodone-acetaminophen 10 mg-325 mg Tab RxNorm: 2215400 1-2 T ablet(s) PO TID 04/26/2011 No Stop Date Active as needed for pain - Previous quantity #240, will start dosing for #180 in April 2011 per Doctor Td. alprazolam 0.5 mg Tab RxNorm: 146203 1 Tablet(s) PO BID 04/25/2011 Inactive prn Klor-Con 8 mEq Tab RxNorm: 124040 1 Tablet(s) PO QD 03/30/20112010 Inactive Klor-Con 8 mEq Tab RxNorm: 509727 1 Tablet(s) PO QD 03/29/20112010 Inactive hydrocodone-acetaminophen 10 mg-325 mg Tab RxNorm: 4949262 1-2 T ablet(s) PO TID 03/20/2011 04/25/2011 Inactive as needed for pain - Previous quantity #240, will start dosing for #180 in April 2011 per Doctor Td. alprazolam 0.5 mg Tab RxNorm: 496395 1 Tablet(s) PO BID prn 011 03/30/2011 Inactive Ambien 10 mg Tab RxNorm: 706475 1 Tablet(s) PO QHS 03/01/2011 011 Inactive cyclobenzaprine 10 mg Tab RxNorm: 159851 1 Tablet(s) PO TID 011 03/18/2012 Inactive cyclobenzaprine 10 mg Tab RxNorm: 734800 1 Tablet(s) PO TID 011 01/08/2011 Inactive cyclobenzaprine 10 mg Tab RxNorm: 532871 1 Tablet(s) PO TID 011 12/20/2010 Inactive terbinafine 250 mg Tab RxNorm: 125203 1 Tablet(s) PO QD 12/12/2010 Inactive triamterene-hydrochlorothiazide 75 mg-50 mg Tab RxNorm: 3108 18 1 Tablet(s) PO QD 12/07/2010 06/04/2011 Inactive Klor-Con 8 8 mEq Tab RxNorm: 783238 1 Tablet(s) PO QD 12/07/201001/08 Inactive Premarin 1.25 mg Tab RxNorm: 330724 2 Tablet(s) PO QD 12/07/201001/08 Inactive clonidine 0.2 mg Tab RxNorm: 276958 1 Tablet(s) PO TID 12/07/2010 Inactive hydrocodone-acetaminophen 7.5 mg-650 mg Tab RxNorm: 554623 1 Ta blet(s) PO Q4H 12/05/2010 01/21/2019 Inactive hydrocodone-acetaminophen 7.5 mg-650 mg Tab RxNorm: 065593 1 Ta blet(s) PO Q4H 10/26/2010 11/14/2010 Inactive hydrocodone-acetaminophen 7.5 mg-650 mg Tab RxNorm: 621815 1 Ta blet(s) PO Q4H 10/13/2010 10/25/2010 Inactive hydrocodone-acetaminophen 7.5 mg-650 mg Tab RxNorm: 473152 1 Ta blet(s) PO Q4H 09/15/2010 09/12/2010 Inactive alprazolam 0.5 mg Tab RxNorm: 983529 1 Tablet(s) PO BID prn 011 09/12/2010 Inactive terbinafine 250 mg Tab RxNorm: 920413 1 Tablet(s) PO QD 09/05/2010 Inactive hydrocodone-acetaminophen 7.5 mg-650 mg Tab RxNorm: 941862 1 Ta blet(s) PO Q4H 08/29/2010 09/17/2010 Inactive alprazolam 0.5 mg Tab RxNorm: 309838 1 Tablet(s) PO BID prn 010 09/27/2010 Inactive alprazolam 0.5 mg Tab RxNorm: 263808 1 Tablet(s) PO BID prn 010 09/06/2010 Inactive Klor-Con 8 mEq Tab RxNorm: 200161 1 Tablet(s) PO QD 08/08/20102010 Inactive hydrocodone-acetaminophen 7.5 mg-650 mg Tab RxNorm: 918263 1 Ta blet(s) PO Q4H 08/08/2010 08/27/2010 Inactive Ambien 10 mg Tab RxNorm: 495575 1 Tablet(s) PO QHS 08/08/2010 Inactive clonidine 0.2 mg Tab RxNorm: 713564 1 Tablet(s) PO TID 08/08/2010 Inactive Premarin 1.25 mg Tab RxNorm: 045602 2 Tablet(s) PO QD 08/08/201009/12 Inactive Ambien 10 mg Tab RxNorm: 821784 1 Tablet(s) PO QHS 07/18/2010 Inactive alprazolam 0.5 mg Tab RxNorm: 067272 1 Tablet(s) PO BID prn 010 08/07/2010 Inactive hydrocodone-acetaminophen 7.5 mg-650 mg Tab RxNorm: 870810 1 Ta blet(s) PO Q4H 07/12/2010 07/31/2010 Inactive clonidine 0.2 mg Tab RxNorm: 849409 1 Tablet(s) PO TID 06/20/2010 Inactive terbinafine 250 mg Tab RxNorm: 733736 1 Tablet(s) PO QD 05/24/2010 Inactive Clonidine 0.2 mg Tab RxNorm: 652859 1 Tablet(s) PO TID 05/24/201006/2010 Inactive Ambien 10 mg Tab RxNorm: 366250 1 Tablet(s) PO QHS 05/24/2010 Inactive alprazolam 0.5 mg Tab RxNorm: 749400 1 Tablet(s) PO BID 05/24/2010 Inactive Klor-Con 8 mEq Tab RxNorm: 208849 1 Tablet(s) PO QD 05/24/20102009 Inactive alprazolam 0.5 mg Tab RxNorm: 231858 2 Tablet(s) PO QD prn 05/24/20 10 07/17/2010 Inactive triamterene-hydrochlorothiazide 75 mg-50 mg Tab RxNorm: 3108 18 1 Tablet(s) PO QD 05/24/2010 11/19/2010 Inactive Ambien 10 mg Tab RxNorm: 358224 1 Tablet(s) PO QHS 05/23/2010 010 Inactive Alprazolam 0.5 mg Tab RxNorm: 760352 2 Tablet(s) PO QD prn 05/23/20 10 05/23/2010 Inactive Premarin 1.25 mg Tab RxNorm: 684288 2 Tablet(s) PO QD 05/19/201007/12 Inactive Hydrocodone-Acetaminophen 7.5 mg-650 mg Tab RxNorm: 083817 1 Ta blet(s) PO Q4H 05/19/2010 03/20/2011 Inactive Prednisone 20 mg Tab RxNorm: 489754 1 Tablet(s) PO BID 05/17/2010 Inactive Prednisone 20 mg Tab RxNorm: 811760 1 Tablet(s) PO BID 05/06/201001/2010 Inactive Premarin 1.25 mg Tab RxNorm: 203884 Tablet(s) PO 2 M-W-F, and 1 Ak-Qz-Wdj-Sun 05/05/2010 08/02/2010 Inactive Premarin 1.25 mg Tab RxNorm: 997516 Tablet(s) PO 2 M-W-F, and 1 Sk-Hh-Hao-Sun 05/04/2010 05/04/2010 Inactive Premarin 1.25 mg Tab RxNorm: 749218 Tablet(s) PO 2 M-W-F, and 1 Xf-Kw-Ija-Sun 05/04/2010 05/03/2010 Inactive Prednisone 20 mg Tab RxNorm: 297476 1 Tablet(s) PO BID 04/27/2010 Inactive Alprazolam 0.5 mg Tab RxNorm: 812955 2 Tablet(s) PO QD prn 04/26/20 10 05/22/2010 Inactive Clindamycin 300 mg Cap RxNorm: 026528 2 Capsule(s) PO TID 04/05/2010 04/18/2010 Inactive Terbinafine 250 mg Tab RxNorm: 191598 1 Tablet(s) PO QD 04/04/2010 Inactive Hydrocodone-Acetaminophen 7.5 mg-650 mg Tab RxNorm: 657572 1 Ta blet(s) PO Q4H 03/30/2010 04/18/2010 Inactive Avelox 400 mg Tab RxNorm: 407967 1 Tablet(s) PO QD 03/09/2010 010 Inactive Hydrocodone-Acetaminophen 7.5 mg-650 mg Tab RxNorm: 907256 1 Ta blet(s) PO Q4H 03/08/2010 03/27/2010 Inactive Alprazolam 0.5 mg Tab RxNorm: 427118 2 Tablet(s) PO QD prn 03/08/20 10 04/25/2010 Inactive Klor-Con 8 mEq Tab RxNorm: 294908 1 Tablet(s) PO QD when takes lasi x 03/07/2010 09/29/2019 Inactive Premarin 1.25 mg Tab RxNorm: 700159 1 Tablet(s) PO QD 03/03/201003/11 Inactive Alprazolam 0.5 mg Tab RxNorm: 055454 1 Tablet(s) PO BID PRN 010 No Stop Date Active triamterene-hydrochlorothiazide 75 mg-50 mg Tab RxNorm: 3108 18 1 Tablet(s) PO QD 02/09/2010 02/03/2011 Inactive Hydrocodone-Acetaminophen 10 mg-750 mg Tab RxNorm: 421599 1 Tablet(s) PO Q4H PRN 02/09/2010 03/20/2011 Inactive Clonidine 0.2 mg Tab RxNorm: 000867 1 Tablet(s) PO TID 01/13/201009/2009 Inactive Alprazolam 0.5 mg Tab RxNorm: 421941 1 Tablet(s) PO BID PRN 010 01/12/2010 Inactive Hydrocodone-Acetaminophen 10 mg-750 mg Tab RxNorm: 938828 1 Tablet(s) PO Q4H PRN 01/13/2010 01/12/2010 Inactive ANGELIQ 1 mg-0.5 mg Tab RxNorm: 0230982 1 Tablet(s) PO QD 12/27/2009 01/23/2010 Inactive Lasix 40 mg Tab RxNorm: 740775 1 Tablet(s) PO QAM 12/14/2009 06/11/20 10 Inactive Vitamin B12 1000mcg Tablet RxNorm: 1 Tablet(s) PO QD No Start Date Active cyclobenzaprine 10 mg tablet RxNorm: 245583 1 Tablet(s) PO TID as needed DO NOT USE WITH BACLOFEN No Start Date Active Vitamin D 5,000 unit Tab RxNorm: 1 Tablet(s) PO QD No Start Date Active vitamin E (dl, acetate) 400 unit Cap RxNorm: 261187 1 Capsule(s ) PO QD No Start Date Active Benadryl 25 mg Cap RxNorm: 2605399 Capsule(s) PO PRN No Start Date Inactive amitriptyline 100 mg tablet RxNorm: 153316 1 Tablet(s) PO QHS No St art Date 11/27/2016 Inactive Zithromax Z-Dustin 250 mg tablet RxNorm: 841144 Tablet(s) PO as di rected No Start Date 07/22/2013 Inactive Klor-Con 8 mEq tablet,extended release RxNorm: 247510 1 Tablet( s) PO BID No Start Date 07/28/2012 Inactive scopolamine 1.5 mg 72 hr Transderm Patch RxNorm: 066195 Application TD Q72H for motion sickness No Start Date 05/25/2013 Inactive Klonopin 1 mg tablet RxNorm: 531337 1-2 Tablet(s) PO QHS as nee ded for sleep No Start Date 06/20/2015 Inactive Klor-Con M20 mEq tablet,extended release RxNorm: 929673 2 Tablet(s) PO BID to use with lasix No Start Date 11/11/2013 Inactive Bystolic 5 mg tablet RxNorm: 060024 1 Tablet(s) PO QD No Start Date 1 Inactive Bystolic 10 mg tablet RxNorm: 912852 1 Tablet(s) PO BID No Start Da te 07/06/2015 Inactive Premarin 1.25 mg Tab RxNorm: 754875 Tablet(s) PO 2 --F, and 1 -Sun No Start Date 05/03/2010 Inactive baclofen 20 mg tablet RxNorm: 596344 1 Tablet(s) PO TID as needed for muscle spasm No Start Date 07/22/2015 Inactive hydrocodone-acetaminophen 7.5 mg-650 mg Tab RxNorm: 367747 1 Tablet(s) PO Q4H as needed for pain No Start Date 03/20/2011 Inactive albuterol sulfate 1.25 mg/3 mL Neb Solution RxNorm: 988039 1 Unit Dose INH Q4H 2boxes No Start Date 09/06/2015 Inactive Butrans 20 mcg/hour Transderm Patch RxNorm: 794969 1 TD WEEKLY apply to skin weekly after removing previous. No Start Date 07/22/2013 Inactive Medrol (Dustin) 4 mg tablets in a dose pack RxNorm: 467436 Tablet(s) PO As Directed No Start Date 07/30/2016 Inactive hydrocodone-acetaminophen 10 mg-325 mg Tab RxNorm: 1670507 1-2 Tablet(s) PO TID as needed for pain No Start Date 03/19/2011 Inactive Klonopin 1 mg tablet RxNorm: 725356 1 Tablet(s) PO QHS No Start Date 02/28/2016 Inactive honey topical RxNorm: topical No Start Date 06/16/2018 Inactive Clonidine 0.2 mg Tab RxNorm: 300760 1 Tablet(s) PO TID No Start Date 01/12/2010 Inactive ketorolac 10 mg tablet RxNorm: 941066 1 Tablet(s) PO Q8H No Start D ate 03/18/2012 Inactive as needed for headache Singulair 10 mg Tab RxNorm: 227474 1 Tablet(s) PO QD No Start Date Inactive Premarin 1.25 mg Tab RxNorm: 609155 1 Tablet(s) PO QD No Start Date 1 Inactive Flonase 50 mcg/Actuation Nasal [place] RxNorm: 0797132 1 [place]ley CECELIA AL BID No Start Date 03/18/2012 Inactive Terbinafine 250 mg Tab RxNorm: 174131 1 Tablet(s) PO QD No Start Da te 04/03/2010 Inactive Fexofenadine 180 mg Tab RxNorm: 5791930 1 Tablet(s) PO QD No Start Date 09/06/2015 Inactive baclofen 20 mg tablet RxNorm: 033263 1 Tablet(s) PO TID as needed N o Start Date 05/25/2014 Inactive Diovan 160 mg Tab RxNorm: 580772 1 Tablet(s) PO QD No Start Date 09/12 Inactive mupirocin 2 % topical ointment RxNorm: 284556 1 Application TOP QID No Start Date 04/25/2016 Inactive ZOFRAN ODT 4 mg Tab, Rapid Dissolve RxNorm: 812726 1 Tablet(s) PO Q4H No Start Date 03/18/2012 Inactive as needed for nausea and vomiting Alprazolam 0.5 mg Tab RxNorm: 266115 1 Tablet(s) PO BID PRN No Star t Date 01/12/2010 Inactive cyclobenzaprine 10 mg tablet RxNorm: 079464 1 Tablet(s) PO TID as needed for muscle spasm No Start Date 10/08/2017 Inactive Albuterol 0.083% Aerosol Solution RxNorm: 1 Appl ication INH Q4H Use one ampule every 4 hrs with nebulizer as needed for shortness of breath. No Start Date 10/09/2010 Inactive lorazepam 1 mg tablet RxNorm: 770859 1 1/2 Tablet(s) PO QHS No Star t Date 02/02/2016 Inactive Melatonin 3 mg Tab RxNorm: 826489 Tablet(s) PO PRN No Start Date 07/11 Inactive Medrol (Dustin) 4 mg Tabs in a Dose Pack RxNorm: 609430 Tablet(s) PO N o Start Date 11/28/2010 Inactive lorazepam 1 mg tablet RxNorm: 061583 1 Tablet(s) PO QHS as need ed for sleep No Start Date 01/30/2016 Inactive hydrocodone-acetaminophen 10 mg-325 mg Tab RxNorm: 9751478 1-2 Tablet(s) PO QID as needed for severe pain No Start Date 03/24/2012 Inactive celecoxib 200 mg capsule RxNorm: 811210 1 Capsule(s) PO BID No Star t Date 06/26/2019 Inactive amlodipine 5 mg-benazepril 20 mg capsule RxNorm: 783420 1 Capsu le(s) PO QD No Start Date 04/10/2017 Inactive Bystolic 20 mg tablet RxNorm: 217227 1/2 Tablet(s) PO QAM No Start Date 01/23/2016 Inactive Bystolic 20 mg tablet RxNorm: 502465 1 Tablet(s) PO QAM No Start Da te 04/25/2016 Inactive Ambien 10 mg Tab RxNorm: 023207 1 Tablet(s) PO QHS No Start Date 05/11 Inactive Klor-Con 8 mEq Tab RxNorm: 054320 1 Tablet(s) PO QD when takes lasix No Start Date 03/06/2010 Inactive aspirin 81 mg tablet RxNorm: 198502 1 Tablet(s) PO QD No Start Date 0 01/29/2018 Inactive hydrocodone-acetaminophen 10 mg-325 mg Tab RxNorm: 6936548 1-2 T ablet(s) PO QID No Start Date 01/10/2012 Inactive Bystolic 10 mg tablet RxNorm: 225340 1 Tablet(s) PO QAM take one daily in the morning. No Start Date 05/28/2013 Inactive nystatin 100,000 unit/mL Oral Susp RxNorm: 217430 5 Milliliter( s) PO QID No Start Date 03/18/2012 Inactive swish and spit scopolamine 1.5 mg 72 hr Transderm Patch RxNorm: 850392 1 Unit Dose TD Q72H for motion sickness No Start Date 12/23/2013 Inactive Hydrocodone-Acetaminophen 10 mg-750 mg Tab RxNorm: 937219 1 Tablet(s) PO Q4H PRN No Start Date 01/12/2010 Inactive Soma 350 mg tablet RxNorm: 639876 1 Tablet(s) PO TID as needed for spasm No Start Date 01/12/2013 Inactive baclofen 10 mg tablet RxNorm: 639528 1 Tablet(s) PO TID as needed for muscle spasm No Start Date 09/18/2019 Inactive Soma 350 mg Tab RxNorm: 736199 1 Tablet(s) PO TID for spasm No Star t Date 01/31/2012 Inactive Co Q-10 400 mg capsule RxNorm: 985585 1 Capsule(s) PO QD No Start D ate 01/21/2019 Inactive nystatin 100,000 unit/gram topical cream RxNorm: 210611 Applica tion TOP BID No Start Date 03/22/2015 Inactive Exforge 5 mg-160 mg Tab RxNorm: 709391 1 Tablet(s) PO QD No Start D ate 10/09/2010 Inactive Hydrocodone-Acetaminophen 7.5 mg-650 mg Tab RxNorm: 004746 1 Ta blet(s) PO Q4H No Start Date 03/07/2010 Inactive Robaxin-750 750 mg Tab RxNorm: 780517 1-2 Tablet(s) PO TID prn spasm No Start Date 05/21/2011 Inactive amlodipine 5 mg tablet RxNorm: 816524 1 Tablet(s) PO QHS No Start D ate 09/29/2015 Inactive oxycodone-acetaminophen 10 mg-325 mg tablet RxNorm: 7016834 1-2 Tablet(s) PO Q6H No Start Date 06/16/2018 Inactive Triamterene-Hydrochlorothiazide 75 mg-50 mg Tab RxNorm: 3108 18 1 Tablet(s) PO QD No Start Date 02/08/2010 Inactive Alprazolam 0.5 mg Tab RxNorm: 928385 2 Tablet(s) PO QD prn No Start Date 03/07/2010 Inactive Bystolic 20 mg tablet RxNorm: 185903 1 Tablet(s) PO QAM No Start Da te 08/17/2015 Inactive ketorolac 10 mg tablet RxNorm: 193851 1 Tablet(s) PO QID prn he adache No Start Date 07/17/2012 Inactive acyclovir 800 mg Tab RxNorm: 033675 1 Tablet(s) PO BID No Start Date 03/18/2012 Inactive duloxetine 60 mg capsule,delayed release RxNorm: 452217 1 Capsu le(s) PO QD No Start Date 09/29/2015 Inactive Norvasc 5 mg tablet RxNorm: 556050 1 Tablet(s) PO QHS No Start Date 1 10/18/2014 Inactive promethazine 25 mg tablet RxNorm: 728189 1 Tablet(s) PO Q8H use sparingly No Start Date 07/22/2013 Inactive alprazolam 0.5 mg tablet RxNorm: 430461 3 Tablet(s) PO QHS No Start Date 06/06/2015 Inactive Lunesta 3 mg tablet RxNorm: 484745 1 Tablet(s) PO QHS No Start Date 0 09/20/2017 Inactive hydrocodone-acetaminophen 10 mg-325 mg Tab RxNorm: 2090204 1-2 Tablet(s) PO TID as needed for pain No Start Date 12/10/2011 Inactive Coricidin HBP Cough & Cold 4 mg-30 mg Tab RxNorm: 9856933 Tablet (s) PO PRN No Start Date 10/09/2010 Inactive Bactroban 2 % Ointment RxNorm: 521171 Application TOP QID to so res No Start Date 02/22/2012 Inactive Flonase 50 mcg/actuation Nasal [place] RxNorm: 345440 2 [place] QHS No Start Date 03/03/2014 Inactive Medication Administered No Medication Administered data Immunizations Vaccine Codes Date Status Tetanus, Diptheria, Pertussis CVX: 115 02/27/2014 Results Observation Observation Code Item Item Code Result Date S [facility] Location COMPREHENSIVE METABOLIC 87435 AST 15 U/L 2019 Unknown COMPREHENSIVE METABOLIC 14982 ALT 13 U/L 2019 Unknown COMPREHENSIVE METABOLIC 13470 BUN 12 mg/dL 2019 Unknown COMPREHENSIVE METABOLIC 92281 ALBUMIN 3.9 g/dL 2019 Unknown COMPREHENSIVE METABOLIC 88902 CHLORIDE 97 mmol/L 2019 Unknown COMPREHENSIVE METABOLIC 58577 Bili Total 0.4 mg/dL 09/29 Unknown COMPREHENSIVE METABOLIC 76953 ALK PHOS 130 U/L 2019 Unknown COMPREHENSIVE METABOLIC 28399 SODIUM 136 mmol/L 09/29 Unknown COMPREHENSIVE METABOLIC 66680 CREATININE 0.92 mg/dL 09/11 Unknown COMPREHENSIVE METABOLIC 94563 CALCIUM 9.1 mg/dL 2019 Unknown COMPREHENSIVE METABOLIC 72461 POTASSIUM 4.4 mmol/L 09/29 Unknown COMPREHENSIVE METABOLIC 92612 Total Protein 6.2 g/dL Unknown COMPREHENSIVE METABOLIC 16573 Glucose 391 mg/dL 2019 Unknown COMPREHENSIVE METABOLIC 33407 Bicarbonate 30 mmol/L 09/11 Unknown COMPREHENSIVE METABOLIC 00483 AGAP 9 mmol/L 2019 Unknown MEAN GLUC 1985956 Calc Mean Gluc 332 mg/dL 09/29/2019 Unkn own COMPLETE BLOOD COUNT [id number] WBC 7.0 10e9/L 09/29/19 Unknown COMPLETE BLOOD COUNT [id number] RBC 4.69 10e12/L 2019 Unknown COMPLETE BLOOD COUNT 6133135 HEMOGLOBIN 14.6 g/dL 09/29/19 Unknown COMPLETE BLOOD COUNT [id number] HEMATOCRIT 45.2 % 09/29/19 Unknown COMPLETE BLOOD COUNT 4937391 MCV 96.4 fL 0 Unknown COMPLETE BLOOD COUNT 9179681 MCH 31.1 pg 0 Unknown COMPLETE BLOOD COUNT 4335632 MCHC 32.3 g/dL 0 Unknown COMPLETE BLOOD COUNT 8577918 PLATELET COUNT 209 10e9/L Unknown COMPLETE BLOOD COUNT 6107230 Mean Plt Volume 9.8 fL Unknown COMPLETE BLOOD COUNT 9360978 Neut Auto 48.1 % 0 Unknown COMPLETE BLOOD COUNT 3825634 Lymph Auto 36.5 % 09/29/19 Unknown COMPLETE BLOOD COUNT 7577735 [place] Auto 8.6 % 0 Unknown COMPLETE BLOOD COUNT 9152072 Eos Auto 6.5 % 0 Unknown COMPLETE BLOOD COUNT 5704452 RDW 13.4 % 0 Unknown COMPLETE BLOOD COUNT 5520248 Baso Auto 0.3 % 0 Unknown COMPLETE BLOOD COUNT 6270128 Neutrophil Abs 3.37 10e9/L Unknown COMPLETE BLOOD COUNT 8408452 Lymphocyte Abs 2.56 10e9/L Unknown COMPLETE BLOOD COUNT 6083429 Monocyte Abs 0.60 10e9/L 09/11 Unknown COMPLETE BLOOD COUNT 7449014 Eosinophil Abs 0.46 10e9/L Unknown COMPLETE BLOOD COUNT [id number] Basophil Abs 0.02 10e9/L 09/11 Unknown COMPLETE BLOOD COUNT 3416354 RDW-SD 45.9 fL 0 Unknown LIPID GROUP 29763 Cholesterol 248 mg/dL 09/29/2019 Unkno wn LIPID GROUP 42028 Triglyceride 898 mg/dL 09/29/2019 Unkn own LIPID GROUP 51643 HDL CHOLESTEROL 41 mg/dL 09/29/2019 U nknown LIPID GROUP 99628 Chol/HDL Ratio 6.05 ratio 09/29/2019 U nknown LIPID GROUP 13791 NON-HDL Chol 207 mg/dL 09/29/2019 Unkn own LIPID GROUP 28234 LDL Cholesterol N/A Trig >400 020 Unknown GLYCOSYLATED HEMOGLOBIN TEST 83997 Hgb A1c 30836-6 13.2 % 0 09/29/2019 Unknown FREE T4 23042 T4 Free 0.75 ng/dL 09/29/2019 Unknown GFR CALC 5628626 GFR Non Afr Amr >60 mL/min 09/29/2019 Un known GFR CALC 2094894 GFR Afr Amr >60 mL/min 09/29/2019 Unknow n THYROID STIMULATING HORMONE 28297 TSH 4.245 uIU/mL 09/29/2019 Unknown COMPLETE BLOOD COUNT [id number] WBC 10.7 10e9/L 018 Unknown COMPLETE BLOOD COUNT [id number] RBC 4.59 10e12/L 2017 Unknown COMPLETE BLOOD COUNT 7159899 HEMOGLOBIN 14.8 g/dL 12/11/19 18 Unknown COMPLETE BLOOD COUNT 9435455 HEMATOCRIT 44.9 % 12/11/19 18 Unknown COMPLETE BLOOD COUNT 6106694 MCV 97.8 fL 8 Unknown COMPLETE BLOOD COUNT 8034479 MCH 32.2 pg 8 Unknown COMPLETE BLOOD COUNT 4539086 MCHC 33.0 g/dL 8 Unknown COMPLETE BLOOD COUNT 7636262 PLATELET COUNT 261 10e9/L 10/2017 Unknown COMPLETE BLOOD COUNT 4694833 Mean Plt Volume 9.5 fL 10/2017 Unknown COMPLETE BLOOD COUNT 3714750 Neut Auto 59.9 % 8 Unknown COMPLETE BLOOD COUNT 0709877 Lymph Auto 27.4 % 12/11/19 18 Unknown COMPLETE BLOOD COUNT 3931978 [place] Auto 8.2 % 8 Unknown COMPLETE BLOOD COUNT 3347110 RDW 13.3 % 8 Unknown COMPLETE BLOOD COUNT 2480825 Eos Auto 4.1 % 8 Unknown COMPLETE BLOOD COUNT 3661640 Baso Auto 0.4 % 8 Unknown COMPLETE BLOOD COUNT 6130742 Neutrophil Abs 6.41 10e9/L Unknown COMPLETE BLOOD COUNT [id number] Lymphocyte Abs 2.93 10e9/L Unknown COMPLETE BLOOD COUNT 6921822 Monocyte Abs 0.88 10e9/L 10/2017 Unknown COMPLETE BLOOD COUNT 3182561 Eosinophil Abs 0.44 10e9/L Unknown COMPLETE BLOOD COUNT 4044318 RDW-SD 46.2 fL 8 Unknown COMPLETE BLOOD COUNT 3562811 Basophil Abs 0.04 10e9/L 10/2017 Unknown THYROID STIMULATING HORMONE 91394 TSH 4.015 uIU/mL 12/10/2017 Unknown COMPREHENSIVE METABOLIC 10145 AST 25 U/L 2017 Unknown COMPREHENSIVE METABOLIC 17223 ALT 17 U/L 2017 Unknown COMPREHENSIVE METABOLIC 99633 BUN 19 mg/dL 2017 Unknown COMPREHENSIVE METABOLIC 71871 ALBUMIN 4.0 g/dL 2017 Unknown COMPREHENSIVE METABOLIC 25315 CHLORIDE 91 mmol/L 2017 Unknown COMPREHENSIVE METABOLIC 15848 Bili Total 0.5 mg/dL 12/10 Unknown COMPREHENSIVE METABOLIC 30698 ALK PHOS 75 U/L 2017 Unknown COMPREHENSIVE METABOLIC 05528 SODIUM 136 mmol/L 12/10 Unknown COMPREHENSIVE METABOLIC 20626 CREATININE 1.05 mg/dL 10/2017 Unknown COMPREHENSIVE METABOLIC 35034 CALCIUM 8.9 mg/dL 2017 Unknown COMPREHENSIVE METABOLIC 07928 POTASSIUM 3.4 mmol/L 12/10 Unknown COMPREHENSIVE METABOLIC 61560 Total Protein 6.5 g/dL Unknown COMPREHENSIVE METABOLIC 25635 Glucose 138 mg/dL 2017 Unknown COMPREHENSIVE METABOLIC 29423 Bicarbonate 35 mmol/L 10/2017 Unknown COMPREHENSIVE METABOLIC 33341 AGAP 10 mmol/L 2017 Unknown MEAN GLUC 6864229 Calc Mean Gluc 171 mg/dL 12/10/2017 Unkn own LIPID GROUP 64211 Cholesterol 204 mg/dL 12/10/2017 Unkno wn LIPID GROUP 04032 Triglyceride 411 mg/dL 12/10/2017 Unkn own LIPID GROUP 29580 HDL CHOLESTEROL 50 mg/dL 12/10/2017 U nknown LIPID GROUP 40597 Chol/HDL Ratio 4.08 ratio 12/10/2017 U nknown LIPID GROUP 41580 NON-HDL Chol 154 mg/dL 12/10/2017 Unkn own LIPID GROUP 62708 LDL Cholesterol N/A Trig >400 018 Unknown GLYCOSYLATED HEMOGLOBIN TEST 49050 Hgb A1c 47152-4 7.6 % 0 12/10/2017 Unknown FREE T4 07484 T4 Free 1.40 ng/dL 12/10/2017 Unknown GFR CALC 5527586 GFR Afr Amr >60 mL/min 12/10/2017 Unknow n GFR CALC 6523694 GFR Non Afr Amr 55 mL/min 12/10/2017 Unk nown GFR CALC 9832663 GFR Afr Amr 59 mL/min 06/28/2017 Unknown GFR CALC 6817661 GFR Non Afr Amr 48 mL/min 06/28/2017 Unk nown COMPREHENSIVE METABOLIC 02793 AST 32 U/L 2016 Unknown COMPREHENSIVE METABOLIC 08402 ALT 22 U/L 2016 Unknown COMPREHENSIVE METABOLIC 29198 BUN 23 mg/dL 2016 Unknown COMPREHENSIVE METABOLIC 23660 ALBUMIN 4.7 g/dL 2016 Unknown COMPREHENSIVE METABOLIC 36918 CHLORIDE 89 mmol/L 2016 Unknown COMPREHENSIVE METABOLIC 43802 Bili Total 0.5 mg/dL 06/28 Unknown COMPREHENSIVE METABOLIC 70039 ALK PHOS 90 U/L 2016 Unknown COMPREHENSIVE METABOLIC 71339 SODIUM 135 mmol/L 06/28 Unknown COMPREHENSIVE METABOLIC 46370 CREATININE 1.18 mg/dL 06/10 Unknown COMPREHENSIVE METABOLIC 40953 CALCIUM 9.7 mg/dL 2016 Unknown COMPREHENSIVE METABOLIC 31583 POTASSIUM 3.5 mmol/L 06/28 Unknown COMPREHENSIVE METABOLIC 71991 Total Protein 7.7 g/dL Unknown COMPREHENSIVE METABOLIC 86467 Glucose 129 mg/dL 2016 Unknown COMPREHENSIVE METABOLIC 38957 Bicarbonate 34 mmol/L 06/10 Unknown COMPREHENSIVE METABOLIC 18537 AGAP 12 mmol/L 2016 Unknown LIPID GROUP 01320 HDL TEST 64 MG/DL 08/27/2014 Unknown LIPID GROUP 81156 TRIG 222 MG/DL 08/27/2014 Unknown LIPID GROUP 02380 TEST LDL 209 MG/DL 08/27/2014 Unknown LIPID GROUP 36982 CHOL 317 MG/DL 08/27/2014 Unknown LIPID GROUP 26017 RCHOL/HDL 4.95 RATIO 08/27/2014 Unknow n LIPID GROUP 91060 NON-HDL CH 253 MG/DL 08/27/2014 Unknow n GFR CALC 5049133 GFR AA >60 ML/MIN 08/27/2014 Unknown GFR CALC 6666905 GFR NON-AA >60 ML/MIN 08/27/2014 Unknown COMPLETE BLOOD COUNT 8594912 WBC 7.0 10e9/L 08/27/20 14 Unknown COMPLETE BLOOD COUNT 9069411 RBC 4.98 10e12/L 2013 Unknown COMPLETE BLOOD COUNT 3064539 HGB 15.6 g/dL 4 Unknown COMPLETE BLOOD COUNT 8855390 HCT DET 46.5 % 4 Unknown COMPLETE BLOOD COUNT 6766832 MCV 93.4 fL 4 Unknown COMPLETE BLOOD COUNT 9130642 MCH 31.3 pg 4 Unknown COMPLETE BLOOD COUNT 0209523 MCHC 33.5 g/dL 4 Unknown COMPLETE BLOOD COUNT 2661552 PLT 309 10e9/L 08/27/20 14 Unknown COMPLETE BLOOD COUNT 8079103 MPV 9.6 fL 4 Unknown COMPLETE BLOOD COUNT 6120435 CADEN % 57.2 % 4 Unknown COMPLETE BLOOD COUNT 0328626 LY % 33.2 % 4 Unknown COMPLETE BLOOD COUNT 6741620 MON % 7.3 % 4 Unknown COMPLETE BLOOD COUNT 3752013 EOS % 2.0 % 4 Unknown COMPLETE BLOOD COUNT 4490792 BASO % 0.3 % 4 Unknown COMPLETE BLOOD COUNT 9123326 RDW 13.7 % 4 Unknown COMPLETE BLOOD COUNT 1674177 ABS CADEN 4.00 10e9/L 014 Unknown COMPLETE BLOOD COUNT 2065204 ABS LYMPH 2.32 10e9/L 014 Unknown COMPLETE BLOOD COUNT 3806100 ABS MONO 0.51 10e9/L 014 Unknown COMPLETE BLOOD COUNT 2634071 ABS EOS 0.14 10e9/L 014 Unknown COMPLETE BLOOD COUNT 3397390 ABS BASO 0.02 10e9/L 014 Unknown COMPLETE BLOOD COUNT 2650614 RDW-SD 45.1 fL 4 Unknown COMPREHENSIVE METABOLIC 54170 AST 13 U/L 2013 Unknown COMPREHENSIVE METABOLIC 81326 ALT 11 IU/L 2013 Unknown COMPREHENSIVE METABOLIC 41684 BUN 23 MG/DL 2013 Unknown COMPREHENSIVE METABOLIC 93339 ALBUMIN 4.4 GM/DL 2013 Unknown COMPREHENSIVE METABOLIC 72821 CHLORIDE 99 MMOL/L 2013 Unknown COMPREHENSIVE METABOLIC 69588 BILI TOT 0.5 MG/DL 2013 Unknown COMPREHENSIVE METABOLIC 38897 ALK PHOS 56 U/L 2013 Unknown COMPREHENSIVE METABOLIC 27330 SODIUM 138 MMOL/L 08/27 Unknown COMPREHENSIVE METABOLIC 20960 CREATININE 0.95 MG/DL 08/10 Unknown COMPREHENSIVE METABOLIC 97292 CALCIUM 9.8 MG/DL 2013 Unknown COMPREHENSIVE METABOLIC 55477 POTASSIUM 3.5 MMOL/L 08/27 Unknown COMPREHENSIVE METABOLIC 73519 PROT TOT 6.8 GM/DL 2013 Unknown COMPREHENSIVE METABOLIC 42455 Glucose 90 MG/DL 2013 Unknown COMPREHENSIVE METABOLIC 38904 BICARB 34 MMOL/L 2013 Unknown COMPREHENSIVE METABOLIC 68445 ANION GAP 5 MEQ/L 2013 Unknown LIPASE 27621 LIPASE 11 IU/L 07/21/2014 Unknown AMYLASE 42346 AMYLASE 39 IU/L 07/21/2014 Unknown HEMOGLOBIN A1C (GLYCOSYLATED) 1355374 A1C [facility] 03191-0 6.2 % 03/05/2013 Unknown THYROID STIMULATING HORMONE 24146 TSH 6.986 uIU/ML 03/05/2013 Unknown COMPLETE BLOOD COUNT 6843372 WBC 12.7 10e9/L 013 Unknown COMPLETE BLOOD COUNT 3232872 RBC 4.53 10e12/L 2012 Unknown COMPLETE BLOOD COUNT 4907061 HGB 14.7 g/dL 3 Unknown COMPLETE BLOOD COUNT 1864438 HCT DET 43.1 % 3 Unknown COMPLETE BLOOD COUNT 1866619 MCV 95.1 fL 3 Unknown COMPLETE BLOOD COUNT 2072988 MCH 32.5 pg 3 Unknown COMPLETE BLOOD COUNT 8418100 MCHC 34.1 g/dL 3 Unknown COMPLETE BLOOD COUNT 6967894 PLT 346 10e9/L 03/05/20 13 Unknown COMPLETE BLOOD COUNT 4888101 MPV 9.5 fL 3 Unknown COMPLETE BLOOD COUNT 7614088 CADEN % 67.6 % 3 Unknown COMPLETE BLOOD COUNT 8172830 LY % 22.1 % 3 Unknown COMPLETE BLOOD COUNT 6497915 MON % 6.6 % 3 Unknown COMPLETE BLOOD COUNT 0963742 EOS % 3.3 % 3 Unknown COMPLETE BLOOD COUNT 7780077 BASO % 0.4 % 3 Unknown COMPLETE BLOOD COUNT 3631567 RDW 14.0 % 3 Unknown COMPLETE BLOOD COUNT 9101298 ABS CADEN 8.59 10e9/L 013 Unknown COMPLETE BLOOD COUNT 2158262 ABS LYMPH 2.81 10e9/L 013 Unknown COMPLETE BLOOD COUNT 2228138 ABS MONO 0.84 10e9/L 013 Unknown COMPLETE BLOOD COUNT 3937662 ABS EOS 0.42 10e9/L 013 Unknown COMPLETE BLOOD COUNT 2449476 ABS BASO 0.05 10e9/L 013 Unknown COMPLETE BLOOD COUNT 7439253 RDW-SD 46.0 fL 3 Unknown FREE T4 47600 FREE T4 1.14 NG/DL 03/05/2013 Unknown COMPREHENSIVE METABOLIC 32521 AST 17 U/L 2012 Unknown COMPREHENSIVE METABOLIC 92319 ALT 12 IU/L 2012 Unknown COMPREHENSIVE METABOLIC 40440 BUN 24 MG/DL 2012 Unknown COMPREHENSIVE METABOLIC 38509 ALBUMIN 4.2 GM/DL 2012 Unknown COMPREHENSIVE METABOLIC 05657 CHLORIDE 93 MMOL/L 2012 Unknown COMPREHENSIVE METABOLIC 37682 BILI TOT 0.5 MG/DL 2012 Unknown COMPREHENSIVE METABOLIC 99018 ALK PHOS 75 U/L 2012 Unknown COMPREHENSIVE METABOLIC 38789 SODIUM 141 MMOL/L 03/05 Unknown COMPREHENSIVE METABOLIC 12955 CREATININE 1.36 MG/DL 02/09 Unknown COMPREHENSIVE METABOLIC 63106 CALCIUM 9.2 MG/DL 2012 Unknown COMPREHENSIVE METABOLIC 30096 POTASSIUM 3.1 MMOL/L 03/05 Unknown COMPREHENSIVE METABOLIC 35368 PROT TOT 6.9 GM/DL 2012 Unknown COMPREHENSIVE METABOLIC 34048 Glucose 123 MG/DL 2012 Unknown COMPREHENSIVE METABOLIC 97926 BICARB 36 MMOL/L 2012 Unknown COMPREHENSIVE METABOLIC 22909 ANION GAP 12 MEQ/L 2012 Unknown GFR CALC 9848141 GFR AA 51.0L ML/MIN 03/05/2013 Unknow n GFR CALC 0022592 GFR NON-AA 42.0L ML/MIN 03/05/2013 Unkno wn COMPREHENSIVE METABOLIC 16330 AST 14 U/L 2012 Unknown COMPREHENSIVE METABOLIC 78731 ALT 11 IU/L 2012 Unknown COMPREHENSIVE METABOLIC 24514 BUN 16 MG/DL 2012 Unknown COMPREHENSIVE METABOLIC 52995 ALBUMIN 4.2 GM/DL 2012 Unknown COMPREHENSIVE METABOLIC 68870 CHLORIDE 98 MMOL/L 2012 Unknown COMPREHENSIVE METABOLIC 71327 BILI TOT 0.4 MG/DL 2012 Unknown COMPREHENSIVE METABOLIC 55443 ALK PHOS 77 U/L 2012 Unknown COMPREHENSIVE METABOLIC 73193 SODIUM 139 MMOL/L 09/25 Unknown COMPREHENSIVE METABOLIC 82444 CREATININE 0.86 MG/DL 09/10 Unknown COMPREHENSIVE METABOLIC 82172 CALCIUM 9.5 MG/DL 2012 Unknown COMPREHENSIVE METABOLIC 72677 POTASSIUM 3.8 MMOL/L 09/25 Unknown COMPREHENSIVE METABOLIC 45398 PROT TOT 6.8 GM/DL 2012 Unknown COMPREHENSIVE METABOLIC 88419 Glucose 91 MG/DL 2012 Unknown COMPREHENSIVE METABOLIC 24937 BICARB 32 MMOL/L 2012 Unknown COMPREHENSIVE METABOLIC 18250 ANION GAP 9 MEQ/L 2012 Unknown FREE T4 64475 FREE T4 0.98 NG/DL 09/25/2012 Unknown THYROID STIMULATING HORMONE 52692 TSH 1.736 uIU/ML 09/25/2012 Unknown C-REACTIVE PROTEIN (CRP) QUANT 54815 CRP 2.3 MG/DL 09/25/2012 Unknown COMPLETE BLOOD COUNT 2343981 WBC 11.9 10e9/L 013 Unknown COMPLETE BLOOD COUNT [id number] RBC 4.87 10e12/L 2012 Unknown COMPLETE BLOOD COUNT 1584642 HGB 15.1 g/dL 3 Unknown COMPLETE BLOOD COUNT 9158307 HCT DET 44.8 % 3 Unknown COMPLETE BLOOD COUNT 6343089 MCV 92.0 fL 3 Unknown COMPLETE BLOOD COUNT 5186661 MCH 31.0 pg 3 Unknown COMPLETE BLOOD COUNT 4996647 MCHC 33.7 g/dL 3 Unknown COMPLETE BLOOD COUNT 2624279 PLT 343 10e9/L 09/25/19 13 Unknown COMPLETE BLOOD COUNT 0317417 MPV 9.0 fL 3 Unknown COMPLETE BLOOD COUNT 5956855 CADEN % 68.2 % 3 Unknown COMPLETE BLOOD COUNT 1676117 LY % 22.4 % 3 Unknown COMPLETE BLOOD COUNT 9184174 MON % 6.4 % 3 Unknown COMPLETE BLOOD COUNT 0224439 EOS % 2.7 % 3 Unknown COMPLETE BLOOD COUNT 4974499 BASO % 0.3 % 3 Unknown COMPLETE BLOOD COUNT 5936630 RDW 13.8 % 3 Unknown COMPLETE BLOOD COUNT 6293842 ABS CADNE 8.12 10e9/L 013 Unknown COMPLETE BLOOD COUNT 1385369 ABS LYMPH 2.67 10e9/L 013 Unknown COMPLETE BLOOD COUNT [id number] ABS MONO 0.76 10e9/L 013 Unknown COMPLETE BLOOD COUNT 4837008 ABS EOS 0.32 10e9/L 013 Unknown COMPLETE BLOOD COUNT 3018751 ABS BASO 0.04 10e9/L 013 Unknown COMPLETE BLOOD COUNT 0974695 RDW-SD 45.6 fL 3 Unknown GFR CALC 9411806 GFR AA >60 ML/MIN 09/25/2012 Unknown GFR CALC 2712079 GFR NON-AA >60 ML/MIN 09/25/2012 Unknown ERYTHROCYTE SEDIMENTATION RATE 01357 ESR 19 MM/HR 05/06/2012 Unknown VITAMIN B 12 FOLIC ACID 77911|67586 VIT B 12 922 PG/ML 04/11 Unknown VITAMIN B 12 FOLIC ACID 68089|10250 FOLIC ACID 13.6 NG/ML Unknown URIC ACID 47732 URIC ACID 7.8 MG/DL 05/06/2012 Unknown COMPLETE BLOOD COUNT 18795 WBC 11.9 10e9/L 012 Unknown COMPLETE BLOOD COUNT 98945 RBC 5.30 10e12/L 2011 Unknown COMPLETE BLOOD COUNT 05200 HGB 16.6 g/dL 2 Unknown COMPLETE BLOOD COUNT 74630 HCT DET 47.2 % 2 Unknown COMPLETE BLOOD COUNT 92688 MCV 89.1 fL 2 Unknown COMPLETE BLOOD COUNT 70603 MCH 31.3 pg 2 Unknown COMPLETE BLOOD COUNT 14418 MCHC 35.2 g/dL 2 Unknown COMPLETE BLOOD COUNT 20077 PLT 362 10e9/L 05/06/20 12 Unknown COMPLETE BLOOD COUNT 86191 MPV 9.4 fL 2 Unknown COMPLETE BLOOD COUNT 96547 CADEN % 68.2 % 2 Unknown COMPLETE BLOOD COUNT 13999 LY % 22.0 % 2 Unknown COMPLETE BLOOD COUNT 00585 MON % 6.9 % 2 Unknown COMPLETE BLOOD COUNT 79184 EOS % 2.6 % 2 Unknown COMPLETE BLOOD COUNT 93168 BASO % 0.3 % 2 Unknown COMPLETE BLOOD COUNT 21705 RDW 12.8 % 2 Unknown COMPLETE BLOOD COUNT 41868 ABS CADEN 8.12 10e9/L 012 Unknown COMPLETE BLOOD COUNT 60049 ABS LYMPH 2.62 10e9/L 012 Unknown COMPLETE BLOOD COUNT 65569 ABS MONO 0.82 10e9/L 012 Unknown COMPLETE BLOOD COUNT 75991 ABS EOS 0.31 10e9/L 012 Unknown COMPLETE BLOOD COUNT 99208 ABS BASO 0.04 10e9/L 012 Unknown COMPLETE BLOOD COUNT 82235 RDW-SD 41.5 fL 2 Unknown GFR CALC 3975466 GFR AA >60 ML/MIN 05/06/2012 Unknown GFR CALC 2266913 GFR NON-AA 58.0L ML/MIN 05/06/2012 Unkno wn FREE T4 82057 FREE T4 1.15 NG/DL 05/06/2012 Unknown THYROID STIMULATING HORMONE 62477 TSH 1.568 uIU/ML 05/06/2012 Unknown COMPREHENSIVE METABOLIC 75575 AST 20 U/L 2011 Unknown COMPREHENSIVE METABOLIC 30387 ALT 12 IU/L 2011 Unknown COMPREHENSIVE METABOLIC 31123 BUN 20 MG/DL 2011 Unknown COMPREHENSIVE METABOLIC 26371 ALBUMIN 4.5 GM/DL 2011 Unknown COMPREHENSIVE METABOLIC 32461 CHLORIDE 91 MMOL/L 2011 Unknown COMPREHENSIVE METABOLIC 25960 BILI TOT 0.4 MG/DL 2011 Unknown COMPREHENSIVE METABOLIC 48602 ALK PHOS 73 U/L 2011 Unknown COMPREHENSIVE METABOLIC 46948 SODIUM 139 MMOL/L 05/06 Unknown COMPREHENSIVE METABOLIC 32260 CREATININE 1.02 MG/DL 04/11 Unknown COMPREHENSIVE METABOLIC 98269 CALCIUM 9.7 MG/DL 2011 Unknown COMPREHENSIVE METABOLIC 41546 POTASSIUM 3.1 MMOL/L 05/06 Unknown COMPREHENSIVE METABOLIC 33285 PROT TOT 7.3 GM/DL 2011 Unknown COMPREHENSIVE METABOLIC 16704 Glucose 118 MG/DL 2011 Unknown COMPREHENSIVE METABOLIC 65943 BICARB 33 MMOL/L 2011 Unknown COMPREHENSIVE METABOLIC 40091 ANION GAP 15 MEQ/L 2011 Unknown Procedures Procedure Codes Date ROUTINE VENIPUNCTURE CPT-4: 05117 09/29/2019 URINALYSIS NONAUTO W/O SCOPE CPT-4: 33329 09/29/2019 COMPREHEN METABOLIC PANEL CPT-4: 76046 09/29/2019 LIPID PANEL CPT-4: 02176 09/29/2019 A1C HPLC CPT-4: 06556 09/29/2019 ASSAY OF FREE THYROXINE CPT-4: 27572 09/29/2019 ASSAY THYROID STIM HORMONE CPT-4: 88357 09/29/2019 COMPLETE CBC W/AUTO DIFF WBC CPT-4: 09898 09/29/2019 URINALYSIS NONAUTO W/O SCOPE CPT-4: 17691 09/30/2018 MICROALBUMIN QUANTITATIVE CPT-4: 32648 09/30/2018 CEFTRIAXONE SODIUM INJECTION CPT-4: J0696 06/19/2018 THER/PROPH/DIAG INJ SC/IM CPT-4: 36069 06/19/2018 CEFTRIAXONE SODIUM INJECTION CPT-4: J0696 06/17/2018 THER/PROPH/DIAG INJ SC/IM CPT-4: 18851 06/17/2018 THER/PROPH/DIAG INJ SC/IM CPT-4: 00814 05/16/2018 KETOROLAC TROMETHAMINE INJ CPT-4: J1885 05/16/2018 ONDANSETRON HCL INJECTION CPT-4: J2405 05/16/2018 THER/PROPH/DIAG INJ SC/IM CPT-4: 04906 05/16/2018 ROUTINE VENIPUNCTURE CPT-4: 46738 03/20/2018 COMPREHEN METABOLIC PANEL CPT-4: 55944 03/20/2018 DEXAMETHASONE SODIUM PHOS CPT-4: J1100 02/11/2018 THER/PROPH/DIAG INJ SC/IM CPT-4: 91068 02/11/2018 TRIAMCINOLONE ACET INJ NOS CPT-4: J3301 02/11/2018 CEFTRIAXONE SODIUM INJECTION CPT-4: J0696 02/01/2018 THER/PROPH/DIAG INJ SC/IM CPT-4: 90529 02/01/2018 CEFTRIAXONE SODIUM INJECTION CPT-4: J0696 01/30/2018 THER/PROPH/DIAG INJ SC/IM CPT-4: 48116 01/30/2018 ROUTINE VENIPUNCTURE CPT-4: 98977 12/10/2017 ASSAY OF FREE THYROXINE CPT-4: 55415 12/10/2017 ASSAY THYROID STIM HORMONE CPT-4: 79838 12/10/2017 COMPREHEN METABOLIC PANEL CPT-4: 01304 12/10/2017 COMPLETE CBC W/AUTO DIFF WBC CPT-4: 68595 12/10/2017 LIPID PANEL CPT-4: 43466 12/10/2017 A1C HPLC CPT-4: 77640 12/10/2017 CEFTRIAXONE SODIUM INJECTION CPT-4: J0696 12/10/2017 THER/PROPH/DIAG INJ SC/IM CPT-4: 95145 12/10/2017 CEFTRIAXONE SODIUM INJECTION CPT-4: J0696 12/07/2017 THER/PROPH/DIAG INJ SC/IM CPT-4: 34696 12/07/2017 DEXAMETHASONE SODIUM PHOS CPT-4: J1100 12/07/2017 THER/PROPH/DIAG INJ SC/IM CPT-4: 67971 12/07/2017 CEFTRIAXONE SODIUM INJECTION CPT-4: J0696 10/08/2017 THER/PROPH/DIAG INJ SC/IM CPT-4: 83997 10/08/2017 CEFTRIAXONE SODIUM INJECTION CPT-4: J0696 09/21/2017 THER/PROPH/DIAG INJ SC/IM CPT-4: 55147 09/21/2017 CEFTRIAXONE SODIUM INJECTION CPT-4: J0696 09/20/2017 THER/PROPH/DIAG INJ SC/IM CPT-4: 90581 09/20/2017 REMOVAL OF NAIL PLATE CPT-4: 29477 08/29/2017 THER/PROPH/DIAG INJ SC/IM CPT-4: 53403 08/29/2017 TRIAMCINOLONE ACET INJ NOS CPT-4: J3301 08/29/2017 CEFTRIAXONE SODIUM INJECTION CPT-4: J0696 08/29/2017 THER/PROPH/DIAG INJ SC/IM CPT-4: 24943 08/29/2017 DESTRUCT PREMALG LESION (Cryosurgery) CPT-4: 24936 ROUTINE VENIPUNCTURE CPT-4: 37026 06/27/2017 ASSAY OF FREE THYROXINE CPT-4: 21628 06/27/2017 ASSAY THYROID STIM HORMONE CPT-4: 75802 06/27/2017 COMPREHEN METABOLIC PANEL CPT-4: 78028 06/27/2017 COMPLETE CBC W/AUTO DIFF WBC CPT-4: 81543 06/27/2017 EXC TR-EXT B9+REECE 0.5 CM< CPT-4: 90106 01/24/2017 THER/PROPH/DIAG INJ SC/IM CPT-4: 84296 08/02/2016 DEXAMETHASONE SODIUM PHOS CPT-4: J1100 08/02/2016 DESTRUCT PREMALG LESION (Cryosurgery) CPT-4: 30989 EXC TR-EXT B9+REECE 0.5 CM< CPT-4: 53509 08/01/2016 AEROBIC WOUND CULTURE & STN CPT-4: 68133 07/06/2016 CEFTRIAXONE SODIUM INJECTION CPT-4: J0696 05/25/2016 THER/PROPH/DIAG INJ SC/IM CPT-4: 94200 05/25/2016 THER/PROPH/DIAG INJ SC/IM CPT-4: 20491 04/26/2016 DEXAMETHASONE SODIUM PHOS CPT-4: J1100 04/26/2016 CEFTRIAXONE SODIUM INJECTION CPT-4: J0696 04/26/2016 THER/PROPH/DIAG INJ SC/IM CPT-4: 23480 04/26/2016 THER/PROPH/DIAG INJ SC/IM CPT-4: 51374 02/09/2016 TRIAMCINOLONE ACET INJ NOS CPT-4: J3301 02/09/2016 URINALYSIS NONAUTO W/O SCOPE CPT-4: 32889 01/24/2016 URINE CULTURE/ COLONY COUNT CPT-4: 71149 01/24/2016 THER/PROPH/DIAG INJ SC/IM CPT-4: 75546 12/08/2015 TRIAMCINOLONE ACET INJ NOS CPT-4: J3301 12/08/2015 THER/PROPH/DIAG INJ SC/IM CPT-4: 10311 10/07/2015 TRIAMCINOLONE ACET INJ NOS CPT-4: J3301 10/07/2015 DESTRUCT PREMALG LESION (Cryosurgery) CPT-4: 19060 THER/PROPH/DIAG INJ SC/IM CPT-4: 83476 03/16/2015 METHYLPREDNISOLONE 40 MG INJ CPT-4: J1030 03/16/2015 DESTRUCT PREMALG LESION (Cryosurgery) CPT-4: 11122 THER/PROPH/DIAG INJ SC/IM CPT-4: 53603 09/11/2014 METHYLPREDNISOLONE 40 MG INJ CPT-4: J1030 09/11/2014 TRIAMCINOLONE ACET INJ NOS CPT-4: J3301 09/11/2014 CEFTRIAXONE SODIUM INJECTION CPT-4: J0696 09/11/2014 THER/PROPH/DIAG INJ SC/IM CPT-4: 35829 09/11/2014 ROUTINE VENIPUNCTURE CPT-4: 49919 08/27/2014 COMPREHEN METABOLIC PANEL CPT-4: 44174 08/27/2014 COMPLETE CBC W/AUTO DIFF WBC CPT-4: 27544 08/27/2014 LIPID PANEL CPT-4: 03997 08/27/2014 ROUTINE VENIPUNCTURE CPT-4: 84476 07/21/2014 ASSAY OF AMYLASE CPT-4: 18818 07/21/2014 ASSAY OF LIPASE CPT-4: 92400 07/21/2014 THER/PROPH/DIAG INJ SC/IM CPT-4: 64276 07/15/2014 TRIAMCINOLONE ACET INJ NOS CPT-4: J3301 07/15/2014 ROUTINE VENIPUNCTURE CPT-4: 27830 05/14/2014 ASSAY OF FREE THYROXINE CPT-4: 38527 05/14/2014 ASSAY THYROID STIM HORMONE CPT-4: 00149 05/14/2014 COMPREHEN METABOLIC PANEL CPT-4: 80273 05/14/2014 COMPLETE CBC W/AUTO DIFF WBC CPT-4: 33941 05/14/2014 LIPID PANEL CPT-4: 16296 05/14/2014 CEFTRIAXONE SODIUM INJECTION CPT-4: J0696 04/21/2014 THER/PROPH/DIAG INJ SC/IM CPT-4: 90989 04/21/2014 THER/PROPH/DIAG INJ SC/IM CPT-4: 74695 04/21/2014 TRIAMCINOLONE ACET INJ NOS CPT-4: J3301 04/21/2014 THER/PROPH/DIAG INJ SC/IM CPT-4: 23334 03/04/2014 METHYLPREDNISOLONE 40 MG INJ CPT-4: J1030 03/04/2014 TRIAMCINOLONE ACET INJ NOS CPT-4: J3301 03/04/2014 CEFTRIAXONE SODIUM INJECTION CPT-4: J0696 03/04/2014 THER/PROPH/DIAG INJ SC/IM CPT-4: 97562 03/04/2014 TDAP VACCINE 7 YRS/> IM CPT-4: 94960 02/27/2014 IMMUNIZATION ADMIN CPT-4: 01401 02/27/2014 DESTRUCT PREMALG LESION (Cryosurgery) CPT-4: 71096 DESTRUCT PREMALG LES 2-14 CPT-4: 36129 01/13/2014 THER/PROPH/DIAG INJ SC/IM CPT-4: 84994 10/21/2013 METHYLPREDNISOLONE 40 MG INJ CPT-4: J1030 10/21/2013 TRIAMCINOLONE ACET INJ NOS CPT-4: J3301 10/21/2013 CEFTRIAXONE SODIUM INJECTION CPT-4: J0696 08/27/2013 THER/PROPH/DIAG INJ SC/IM CPT-4: 89612 08/27/2013 THER/PROPH/DIAG INJ SC/IM CPT-4: 60667 08/27/2013 METHYLPREDNISOLONE 40 MG INJ CPT-4: J1030 08/27/2013 TRIAMCINOLONE ACET INJ NOS CPT-4: J3301 08/27/2013 THER/PROPH/DIAG INJ SC/IM CPT-4: 59688 06/23/2013 METHYLPREDNISOLONE 40 MG INJ CPT-4: J1030 06/23/2013 TRIAMCINOLONE ACET INJ NOS CPT-4: J3301 06/23/2013 THER/PROPH/DIAG INJ SC/IM CPT-4: 62635 05/26/2013 METHYLPREDNISOLONE 40 MG INJ CPT-4: J1030 05/26/2013 TRIAMCINOLONE ACET INJ NOS CPT-4: J3301 05/26/2013 ROUTINE VENIPUNCTURE CPT-4: 97555 03/05/2013 ASSAY OF FREE THYROXINE CPT-4: 50594 03/05/2013 ASSAY THYROID STIM HORMONE CPT-4: 43403 03/05/2013 COMPREHEN METABOLIC PANEL CPT-4: 59304 03/05/2013 COMPLETE CBC W/AUTO DIFF WBC CPT-4: 33773 03/05/2013 A1C GLYCOSYLATED HEMOGLOBIN TEST CPT-4: 75680 013 DRAIN/INJECT JOINT/BURSA CPT-4: 52064 12/04/2012 METHYLPREDNISOLONE 40 MG INJ CPT-4: J1030 12/04/2012 TRIAMCINOLONE ACET INJ NOS CPT-4: J3301 12/04/2012 CEFTRIAXONE SODIUM INJECTION CPT-4: J0696 11/21/2012 THER/PROPH/DIAG INJ SC/IM CPT-4: 55816 11/21/2012 THER/PROPH/DIAG INJ SC/IM CPT-4: 46445 10/14/2012 METHYLPREDNISOLONE 40 MG INJ CPT-4: J1030 10/14/2012 TRIAMCINOLONE ACET INJ NOS CPT-4: J3301 10/14/2012 URINALYSIS NONAUTO W/O SCOPE CPT-4: 33838 09/27/2012 ROUTINE VENIPUNCTURE CPT-4: 89059 09/25/2012 ASSAY OF FREE THYROXINE CPT-4: 52078 09/25/2012 ASSAY THYROID STIM HORMONE CPT-4: 19648 09/25/2012 COMPREHEN METABOLIC PANEL CPT-4: 69229 09/25/2012 COMPLETE CBC W/AUTO DIFF WBC CPT-4: 55120 09/25/2012 C-REACTIVE PROTEIN CPT-4: 62159 09/25/2012 THER/PROPH/DIAG INJ SC/IM CPT-4: 75001 08/29/2012 METHYLPREDNISOLONE 40 MG INJ CPT-4: J1030 08/29/2012 TRIAMCINOLONE ACET INJ NOS CPT-4: J3301 08/29/2012 DESTRUCT PREMALG LESION (Cryosurgery) CPT-4: 92596 THER/PROPH/DIAG INJ SC/IM CPT-4: 30756 05/06/2012 METHYLPREDNISOLONE 40 MG INJ CPT-4: J1030 05/06/2012 TRIAMCINOLONE ACET INJ NOS CPT-4: J3301 05/06/2012 VITAMIN B 12 FOLIC ACID CPT-4: 03335|47390 05/06/2012 RBC SED RATE AUTOMATED CPT-4: 68459 05/06/2012 ROUTINE VENIPUNCTURE CPT-4: 83003 05/06/2012 ASSAY OF FREE THYROXINE CPT-4: 05009 05/06/2012 ASSAY THYROID STIM HORMONE CPT-4: 19339 05/06/2012 COMPREHEN METABOLIC PANEL CPT-4: 59498 05/06/2012 COMPLETE CBC W/AUTO DIFF WBC CPT-4: 49807 05/06/2012 ASSAY OF BLOOD/URIC ACID CPT-4: 18718 05/06/2012 THER/PROPH/DIAG INJ SC/IM CPT-4: 44889 03/19/2012 KETOROLAC TROMETHAMINE INJ CPT-4: J1885 03/19/2012 KETOROLAC TROMETHAMINE INJ CPT-4: J1885 01/30/2012 THER/PROPH/DIAG INJ SC/IM CPT-4: 37313 01/30/2012 PROMETHAZINE HCL INJECTION CPT-4: J2550 01/30/2012 THER/PROPH/DIAG INJ SC/IM CPT-4: 29026 01/24/2012 METHYLPREDNISOLONE 40 MG INJ CPT-4: J1030 01/24/2012 TRIAMCINOLONE ACET INJ NOS CPT-4: J3301 01/24/2012 THER/PROPH/DIAG INJ SC/IM CPT-4: 05320 09/13/2011 KETOROLAC TROMETHAMINE INJ CPT-4: J1885 09/13/2011 THER/PROPH/DIAG INJ SC/IM CPT-4: 31868 09/13/2011 PROMETHAZINE HCL INJECTION CPT-4: J2550 09/13/2011 CEFTRIAXONE SODIUM INJECTION CPT-4: J0696 07/20/2011 THER/PROPH/DIAG INJ SC/IM CPT-4: 19137 07/20/2011 THER/PROPH/DIAG INJ SC/IM CPT-4: 21925 07/20/2011 METHYLPREDNISOLONE INJECTION CPT-4: J2930 07/20/2011 URINALYSIS NONAUTO W/O SCOPE CPT-4: 88156 05/09/2011 CEFTRIAXONE SODIUM INJECTION CPT-4: J0696 05/09/2011 THER/PROPH/DIAG INJ SC/IM CPT-4: 57360 05/09/2011 THER/PROPH/DIAG INJ SC/IM CPT-4: 71296 05/09/2011 PROMETHAZINE HCL INJECTION CPT-4: J2550 05/09/2011 HYDRATION IV INFUSION INIT CPT-4: 19835 05/09/2011 DESTRUCT PREMALG LESION (Cryosurgery) CPT-4: 56802 DESTRUCT PREMALG LES 2-14 CPT-4: 67153 07/19/2010 REMOVAL OF SKIN TAGS <W/15 CPT-4: 96881 05/30/2010 THER/PROPH/DIAG INJ SC/IM CPT-4: 14920 04/05/2010 CEFTRIAXONE SODIUM INJECTION CPT-4: J0696 04/05/2010 TRIAMCINOLONE ACET INJ NOS CPT-4: J3301 04/05/2010 METHYLPREDNISOLONE 40 MG INJ CPT-4: J1030 04/05/2010 THER/PROPH/DIAG INJ SC/IM CPT-4: 22836 04/05/2010 TRIAMCINOLONE ACET INJ NOS CPT-4: J3301 03/09/2010 METHYLPREDNISOLONE 40 MG INJ CPT-4: J1030 03/09/2010 THER/PROPH/DIAG INJ SC/IM CPT-4: 24564 03/09/2010 THER/PROPH/DIAG INJ SC/IM CPT-4: 14853 03/09/2010 CEFTRIAXONE SODIUM INJECTION CPT-4: J0696 03/09/2010 Vital Signs Date Vital 10/07/2019 Blood Pressure 1: 134/82 Code: 8480-6 Heart Rate 1: 105 bpm Respiratory Rate: 17 bpm SpO2: 96% Temperature: 36.8 (C) / 98.2 (F) We ight: 198 lbs 09/30/2019 Blood Pressure 1: 132/80 Code: 8480-6 BMI: 35.8 Code: 89488-8 Heart Rate 1: 88 bpm Height: 5'4" Respiratory Rate: 20 bpm SpO2: 95% Tempera ture: 36.9 (C) / 98.5 (F) Weight: 210 lbs 05/28/2019 Blood Pressure 1: 126/82 Code: 8480-6 BMI: 35.0 Code: 68036-6 Heart Rate 1: 88 bpm Height: 5'4" [...] 1: 128/90 Code: 8480-6 BMI: 37.2 Code: 56392-7 Heart Rate 1: 84 bpm Height: 5'4" Respiratory Rate: 20 bpm SpO2: 95% Tempera ture: 36.6 (C) / 97.8 (F) Weight: 217 lbs 08/27/2018 Blood Pressure 1: 128/88 Code: 8480-6 BMI: 38.3 Code: 55214-4 Heart Rate 1: 84 bpm Height: 5'4" [...] 1: 119/72 Code: 8480-6 BMI: 37.4 Code: 87246-3 Heart Rate 1: 82 bpm Height: 5'4" Respiratory Rate: 12 bpm SpO2: 94% Tempera ture: 35.2 (C) / 95.4 (F) Weight: 218 lbs 12/18/2017 Blood Pressure 1: 128/86 Code: 8480-6 BMI: 37.8 Code: 22095-4 Heart Rate 1: 84 bpm Height: 5'4" [...] 1: 128/82 Code: 8480-6 BMI: 35.5 Code: 91962-0 Heart Rate 1: 84 bpm Height: 5'4" [...] 1: 128/82 Code: 8480-6 BMI: 30.2 Code: 76859-4 Heart Rate 1: 80 bpm Height: 5'4" [...] 1: 128/86 Code: 8480-6 BMI: 32.8 Code: 35015-3 Heart Rate 1: 66 bpm Height: 5'4" Respiratory Rate: 18 bpm Temperature: 36 .3 (C) / 97.3 (F) Weight: 191 lbs 06/23/2013 Blood Pressure 1: 132/94 Code: 8480-6 BMI: 34.0 Code: 24950-1 Heart Rate 1: 84 bpm Height: 5'4" Respiratory Rate: 20 bpm Temperature: 36 .8 (C) / 98.2 (F) Weight: 198 lbs 05/26/2013 Blood Pressure 1: 114/80 Code: 8480-6 BMI: 35.0 Code: 15618-3 Heart Rate 1: 80 bpm Height: 5'4" Respiratory Rate: 20 bpm Temperature: 36 .4 (C) / 97.6 (F) Weight: 204 lbs 04/16/2013 Blood Pressure 1: 114/82 Code: 8480-6 BMI: 36.7 Code: 70593-7 Heart Rate 1: 84 bpm Height: 5'4" Respiratory Rate: 20 bpm Temperature: 36 .7 (C) / 98.0 (F) Weight: 214 lbs 03/05/2013 Blood Pressure 1: 136/90 Code: 8480-6 BMI: 37.1 Code: 05373-3 Heart Rate 1: 84 bpm Height: 5'4" [...] 1: 168/114 Code: 8480-6 BMI: 36.2 Code: 97052-7 Heart Rate 1: 104 bpm Height: 5'4" Respiratory Rate: 20 bpm Temperature: 36 .8 (C) / 98.2 (F) Weight: 211 lbs 11/22/2012 Blood Pressure 1: 128/90 Code: 8480-6 Heart Rate 1: 88 bpm Respiratory Rate: 20 bpm SpO2: 96% Temperature: 36.8 (C) / 98.2 (F) 11/21/2012 Blood Pressure 1: 146/100 Code: 8480-6 BMI: 35.7 Code: 88107-0 Heart Rate 1: 96 bpm Height: 5'4" [...] 1: 138/100 Code: 8480-6 BMI: 35.7 Code: 67184-2 Heart Rate 1: 96 bpm Height: 5'4" Respiratory Rate: 20 bpm Temperature: 36 .8 (C) / 98.2 (F) Weight: 208 lbs 05/06/2012 Blood Pressure 1: 154/102 Code: 8480-6 BMI: 34.7 Code: 01270-8 Heart Rate 1: 116 bpm Height: 5'4" Respiratory Rate: 20 bpm Temperature: 36 .8 (C) / 98.2 (F) Weight: 202 lbs 04/03/2012 Blood Pressure 1: 134/94 Code: 8480-6 BMI: 34.8 Code: 35197-9 Heart Rate 1: 108 bpm Height: 5'4" Respiratory Rate: 20 bpm Temperature: 36 .8 (C) / 98.2 (F) Weight: 203 lbs 03/19/2012 Blood Pressure 1: 148/106 Code: 8480-6 BMI: 35.0 Code: 91799-3 Heart Rate 1: 100 bpm Height: 5'4" Respiratory Rate: 20 bpm Temperature: 36 .6 (C) / 97.9 (F) Weight: 204 lbs 02/22/2012 Blood Pressure 1: 146/94 Code: 8480-6 He art Rate 1: 88 bpm 02/21/2012 Blood Pressure 1: 172/120 Code: 8480-6 B lood Pressure 2: 152/106 Code: 8480-6 Heart Rate 1: 116 bpm 02/20/2012 Blood Pressure 1: 160/100 Code: 8480-6 BMI: 32.0 Code: 75367-8 Heart Rate 1: 84 bpm Height: 5'7" Temperature: 36.5 (C) / 97.7 (F) Weight: 204 lbs 01/30/2012 Blood Pressure 1: 152/110 Code: 8480-6 BMI: 32.0 Code: 66632-0 Heart Rate 1: 116 bpm Height: 5'7" Respiratory Rate: 20 bpm Temperature: 37 .0 (C) / 98.6 (F) Weight: 204 lbs 01/24/2012 Blood Pressure 1: 146/100 Code: 8480-6 BMI: 32.0 Code: 93895-0 Heart Rate 1: 100 bpm Height: 5'7" Respiratory Rate: 20 bpm Temperature: 36 .7 (C) / 98.0 (F) Weight: 204 lbs 01/10/2012 Blood Pressure 1: 156/94 Code: 8480-6 BMI: 32.6 Code: 18105-7 Heart Rate 1: 72 bpm Height: 5'7" Respiratory Rate: 20 bpm Temperature: 36 .8 (C) / 98.2 (F) Weight: 208 lbs 12/11/2011 Blood Pressure 1: 146/100 Code: 8480-6 Heart Rat e 1: 116 bpm Height: 5'7" Respiratory Rate: 20 bpm Temperature: 36.9 (C) / 98.4 (F) We ight: 11/09/2011 Blood Pressure 1: 148/96 Code: 8480-6 BMI: 32.1 Code: 39924-6 Heart Rate 1: 116 bpm Height: 5'7" Respiratory Rate: 20 bpm Temperature: 36 .7 (C) / 98.0 (F) Weight: 205 lbs 09/13/2011 Blood Pressure 1: 126/88 Code: 8480-6 Heart Rate 1: 88 bpm Height: 5'7" Respiratory Rate: 20 bpm Temperature: 36.9 (C) / 98.4 (F) We ight: 08/31/2011 Blood Pressure 1: 118/82 Code: 8480-6 BMI: 32.0 Code: 74081-6 Heart Rate 1: 80 bpm Height: 5'7" Temperature: 36.4 (C) / 97.6 (F) Weight: 204 lbs 07/06/2011 Blood Pressure 1: 128/86 Code: 8480-6 BMI: 30.9 Code: 83705-9 Heart Rate 1: 92 bpm Height: 5'7" Respiratory Rate: 20 bpm Temperature: 36 .9 (C) / 98.4 (F) Weight: 197 lbs 06/06/2011 Blood Pressure 1: 112/74 Code: 8480-6 BMI: 31.0 Code: 60674-6 Heart Rate 1: 72 bpm Height: 5'7" [...] 1: 128/92 Code: 8480-6 BMI: 33.6 Code: 89427-8 Heart Rate 1: 104 bpm Height: 5'4" [...] Check-up Encounters Encounter Performer Location Codes Date ([id number]) OFFICE/OUTPATIENT VISIT EST Diagnosis: Ingrowing nail[ICD10: L60.0] Diagnosis: Type 2 diabetes mellitus with hyperglycemia[ICD10: E11.65] Kathleen Zuniga MARÍA ELENA [employer] CPT-4: 87852 10/07/2019 ([id number]) OFFICE/OUTPATIENT VISIT EST Diagnosis: DM w/o complication type II, uncontrolled[ICD10: E11.65] Diagnosis: Hypertriglyceridemia[ICD10: E78.1] Diagnosis: Essential hypertension[ICD10: I10] María Elena JEAN [employer] CPT-4: 65091 09/30/2019 ([id number]) NURSE/OUTPATIENT VISIT EST Diagnosis: Essential (primary) hypertension[ICD10: I10] Diagnosis: Cervicalgia[ICD10: M54.2] Diagnosis: Hyperglycemia, unspecified[ICD10: R73.9] Diagnosis: Mixed hyperlipidemia[ICD10: E78.2] María Elena JEAN [employer] CPT-4: 38856 09/29/2019 ([id number]) OFFICE/OUTPATIENT VISIT EST Diagnosis: Essential (primary) hypertension[ICD10: I10] Diagnosis: Fall from bed, sequela[ICD10: W06.XXXS] María Elena Hicks [employer] CPT-4: 32022 05/28/2019 ([id number]) NURSE/OUTPATIENT VISIT EST Diagnosis: Essential (primary) hypertension[ICD10: I10] María Elena Hicks [employer] CPT-4: 77782 05/19/2019 ([id number]) OFFICE/OUTPATIENT VISIT EST Diagnosis: Essential (primary) hypertension[ICD10: I10] Diagnosis: Type 2 diabetes mellitus with hyperglycemia[ICD10: E11.65] Diagnosis: Intervertebral disc disorders with radiculopathy, 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] Diagnosis: Hormone replacement therapy[ICD10: Z79.890] María Elena JUARES [employer]j [employer] [facility] CPT-4: 40929 01/22/2019 ([id number]) OFFICE/OUTPATIENT VISIT EST Diagnosis: Essential (primary) hypertension[ICD10: I10] Diagnosis: Type 2 diabetes mellitus with hyperglycemia[ICD10: E11.65] María Elena JUARES [employer] [facility] CPT-4: 58545 09/30/2018 ([id number]) OFFICE/OUTPATIENT VISIT EST Diagnosis: Pain in left elbow[ICD10: M25.522] Diagnosis: Acute stress reaction[ICD10: F43.0] Diagnosis: Primary insomnia[ICD10: F51.01] Diagnosis: Abnormal weight gain[ICD10: R63.5] María Elena JEAN [employer] CPT-4: 96394 08/27/2018 ([id number]) OFFICE/OUTPATIENT VISIT EST Diagnosis: Acute recurrent sinusitis, unspecified[ICD10: J01.91] Diagnosis: Follicular disorder, unspecified[ICD10: L73.9] Diagnosis: Tinea corporis[ICD10: B35.4] María Elena JUARES [employer] [facility] CPT-4: 41880 08/09/2018 ([id number]) OFFICE/OUTPATIENT VISIT EST Diagnosis: Tinea corporis[ICD10: B35.4] Diagnosis: Anxiety disorder, unspecified[ICD10: F41.9] Diagnosis: Menopausal and female climacteric states[ICD10: N95.1] María Elena JUARES [employer] [facility] CPT-4: 98033 07/22/2018 ([id number]) NURSE/OUTPATIENT VISIT EST Diagnosis: Cellulitis of right toe[ICD10: L03.031] María Elena REED [employer]j [employer] [facility] CPT-4: 83933 06/19/2018 ([id number]) OFFICE/OUTPATIENT VISIT EST Diagnosis: Cellulitis of right toe[ICD10: L03.031] Kathleen APPIAH DO [facility] CPT-4: 25186 06/17/2018 ([id number]) OFFICE/OUTPATIENT VISIT EST Diagnosis: Migraine without aura, intractable, without status migrainosus[ICD10: G43.019] Diagnosis: Zoster without complications[ICD10: B02.9] Kathleen APPIAH DO [facility] CPT-4: 32652 05/16/2018 ([id number]) OFFICE/OUTPATIENT VISIT EST Diagnosis: Cellulitis of right lower limb[ICD10: L03.115] Kathleen APPIAH DO [facility] CPT-4: 04247 03/20/2018 ([id number]) OFFICE/OUTPATIENT VISIT EST Diagnosis: Cellulitis of right lower limb[ICD10: L03.115] Kathleen APPIAH DO [facility] CPT-4: 15071 03/18/2018 ([id number]) OFFICE/OUTPATIENT VISIT EST Diagnosis: Cellulitis of right lower limb[ICD10: L03.115] Kathleen APPIAH DO [facility] CPT-4: 67174 03/15/2018 ([id number]) OFFICE/OUTPATIENT VISIT EST Diagnosis: Acute sinusitis, unspecified[ICD10: J01.90] Kathleen APPIAH DO [facility] CPT-4: 88437 02/11/2018 ([id number]) NURSE/OUTPATIENT VISIT EST Diagnosis: Otitis media, unspecified, right ear[ICD10: H66.91] María Elena APPIAH DO [facility] CPT-4: 13371 02/01/2018 ([id number]) OFFICE/OUTPATIENT VISIT EST Diagnosis: Acute suppurative otitis media without spontaneous rupture of ear drum, left ear[ICD10: H66.002] Diagnosis: Abnormal weight gain[ICD10: R63.5] Diagnosis: Intervertebral disc disorders with radiculopathy, 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] Kathleen APPIAH DO [facility] CPT-4: 99 214 01/30/2018 ([id number]) PREV VISIT EST AGE 40-64 Diagnosis: Encounter for general adult medical examination without abnormal findings[ICD10: Z00.00] Diagnosis: Essential (primary) hypertension[ICD10: I10] Diagnosis: Mixed hyperlipidemia[ICD10: E78.2] Diagnosis: Type 2 diabetes mellitus with hyperglycemia[ICD10: E11.65] Diagnosis: 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] María Elena APPIAH [employer] [facility] CPT-4: 37306 12/18/2017 ([id number]) OFFICE/OUTPATIENT VISIT EST Diagnosis: Cellulitis of right toe[ICD10: L03.031] Diagnosis: Mixed hyperlipidemia[ICD10: E78.2] Diagnosis: Essential (primary) hypertension[ICD10: I10] Diagnosis: Hyperglycemia, unspecified[ICD10: R73.9] Diagnosis: Nontoxic goiter, 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] María Elena [employer] [facility] CPT-4: 81073 12/10/2017 ([id number]) OFFICE/OUTPATIENT VISIT EST Diagnosis: Cellulitis of right toe[ICD10: L03.031] Diagnosis: Acute sinusitis, unspecified[ICD10: J01.90] Kathleen APPIAH [employer] [facility] CPT-4: 48351 12/07/2017 OFFICE/OUTPATIENT VISIT EST Diagnosis: Acute maxillary sinusitis, unspecified[ICD10: J01.00] Kathleen APPIAH [employer] [facility] CPT-4: 36483 10/08/2017 ([id number]) OFFICE/OUTPATIENT VISIT EST Diagnosis: Cellulitis of left toe[ICD10: L03.032] María Elena Hicks [employer] [facility] CPT-4: 57912 09/21/2017 ([id number]) OFFICE/OUTPATIENT VISIT EST Diagnosis: Insomnia, unspecified[ICD10: G47.00] Diagnosis: Major depressive disorder, single episode, unspecified[ICD10: F32.9] Diagnosis: Anxiety disorder, unspecified[ICD10: F41.9] Diagnosis: Cellulitis of left toe[ICD10: L03.032] Diagnosis: Snoring[ICD10: R06.83] Kathleen APPIAH DO [facility] CPT-4: 44384 09/20/2017 ([id number]) OFFICE/OUTPATIENT VISIT EST Diagnosis: Cellulitis of left toe[ICD10: L03.032] María Elena APPIAH DO [facility] CPT-4: 57142 07/19/2017 OFFICE/OUTPATIENT VISIT EST Diagnosis: Chronic sinusitis, unspecified[ICD10: J32.9] Diagnosis: Generalized hyperhidrosis[ICD10: R61] Kathleen APPIAH DO [facility] CPT-4: 08589 06/27/2017 ([id number]) OFFICE/OUTPATIENT VISIT EST Diagnosis: Intervertebral disc disorders with radiculopathy, 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] Diagnosis: Primary insomnia[ICD10: F51.01] Diagnosis: Other fatigue[ICD10: R53.83] María Elena APPIAH DO [facility] CPT-4: 42603 04/10/2017 ([id number]) OFFICE/OUTPATIENT VISIT EST Diagnosis: Primary insomnia[ICD10: F51.01] Diagnosis: Localized edema[ICD10: R60.0] Diagnosis: 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] María Elena APPIAH DO [facility] CPT-4: 03395 12/13/2016 ([id number]) OFFICE/OUTPATIENT VISIT EST Diagnosis: Primary insomnia[ICD10: F51.01] Diagnosis: Cyanosis[ICD10: R23.0] María Elena Bazzi [employer] [facility] CPT-4: 96264 11/01/2016 ([id number]) PREV VISIT EST AGE 40-64 Diagnosis: Encounter for gynecological examination (general) (routine) without abnormal findings[ICD10: Z01.419] Diagnosis: Encounter for routine child health examination without abnormal findings[ICD10: Z00.129] María Elena APPIAH DO [facility] CPT-4: 05917 10/17/2016 ([id number]) OFFICE/OUTPATIENT VISIT EST Diagnosis: Other seasonal allergic rhinitis[ICD10: J30.2] María Elena APPIAH DO [facility] CPT-4: 21488 10/10/2016 ([id number]) OFFICE/OUTPATIENT VISIT EST Diagnosis: Pain in left arm[ICD10: M79.602] Diagnosis: Contact with and (suspected) exposure to potentially hazardous body fluids[ICD10: Z77.21] Diagnosis: 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, 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] Diagnosis: Unspecified open wound, right foot, sequela[ICD10: S91.301S] María Elena APPIAH [employer] CPT-4: 57024 09/19/2016 ([id number]) OFFICE/OUTPATIENT VISIT EST Diagnosis: Chronic sinusitis, unspecified[ICD10: J32.9] Diagnosis: Allergic rhinitis due to pollen[ICD10: J30.1] María Elena APPIAH [employer] CPT-4: 89867 08/24/2016 ([id number]) OFFICE/OUTPATIENT VISIT EST Diagnosis: Acute bronchitis, unspecified[ICD10: J20.9] María Elena APPIAH [employer] CPT-4: 16104 08/16/2016 ([id number]) OFFICE/OUTPATIENT VISIT EST Diagnosis: Otitis media, unspecified, right ear[ICD10: H66.91] Diagnosis: Acute bronchitis, unspecified[ICD10: J20.9] María Elena APPIAH [facility] CPT-4: 59291 08/10/2016 ([id number]) OFFICE/OUTPATIENT VISIT EST Diagnosis: Acute recurrent sinusitis, unspecified[ICD10: J01.91] Diagnosis: Allergic rhinitis due to pollen[ICD10: J30.1] María Elena APPIAH [place] CPT-4: 05837 08/02/2016 ([id number]) OFFICE/OUTPATIENT VISIT EST Diagnosis: Pain in unspecified joint[ICD10: M25.50] María Elena APPIAH DO [facility] CPT-4: 16837 07/27/2016 OFFICE/OUTPATIENT VISIT EST Diagnosis: 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] Diagnosis: Acute recurrent sinusitis, unspecified[ICD10: J01.91] Diagnosis: Other fatigue[ICD10: R53.83] Diagnosis: Primary insomnia[ICD10: F51.01] Diagnosis: Pain in unspecified joint[ICD10: M25.50] María Elena APPIAH DO [facility] CPT-4: 33402 07/20/2016 ([id number]) OFFICE/OUTPATIENT VISIT EST Diagnosis: Blister (nonthermal), left great toe, initial encounter[ICD10: S90.422A] Loan APPIAH DO [facility] CPT-4: 29263 ([id number]) OFFICE/OUTPATIENT VISIT EST Diagnosis: Acute recurrent sinusitis, unspecified[ICD10: J01.91] María Elena APPIAH [employer] [facility] CPT-4: 13523 05/25/2016 ([id number]) OFFICE/OUTPATIENT VISIT EST Diagnosis: Acute sinusitis, unspecified[ICD10: J01.90] María Elena APPIAH [employer] [facility] CPT-4: 63763 04/26/2016 ([id number]) OFFICE/OUTPATIENT VISIT EST Diagnosis: Flushing[ICD10: R23.2] Diagnosis: Primary insomnia[ICD10: F51.01] María Elena APPIAH [employer] [facility] CPT-4: 96599 03/02/2016 ([id number]) OFFICE/OUTPATIENT VISIT EST Diagnosis: Other seasonal allergic rhinitis[ICD10: J30.2] Loan APPIAH [employer] [facility] CPT-4: 40471 02/09/2016 ([id number]) OFFICE/OUTPATIENT VISIT EST Diagnosis: Primary insomnia[ICD10: F51.01] Diagnosis: Urinary tract infection, site not specified[ICD10: N39.0] María Elena APPIAH DO [facility] CPT-4: 55496 01/24/2016 ([id number]) OFFICE/OUTPATIENT VISIT EST Diagnosis: Other specified disorders of Eustachian tube, bilateral[ICD10: H69.83] Diagnosis: Allergic rhinitis, unspecified[ICD10: J30.9] Loan APPIAH [facility] CPT-4: 57329 12/23/2015 ([id number]) OFFICE/OUTPATIENT VISIT EST Diagnosis: Acute recurrent sinusitis, unspecified[ICD10: J01.91] Diagnosis: 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] Diagnosis: Allergic rhinitis, unspecified[ICD10: J30.9] María Elena Td ELLISLINE Fabiola APPIAH DO [facility] CPT-4: 15571 12/08/2015 ([id number]) OFFICE/OUTPATIENT VISIT EST Diagnosis: Allergic rhinitis, unspecified[ICD10: J30.9] Diagnosis: Pain in unspecified joint[ICD10: M25.50] María Elena APPIAH [facility] CPT-4: 52701 10/07/2015 ([id number]) OFFICE/OUTPATIENT VISIT EST Diagnosis: Essential (primary) hypertension[ICD10: I10] María Elena Td ELLISLINE Fabiola APPIAH [facility] CPT-4: 05465 10/06/2015 OFFICE/OUTPATIENT VISIT EST Diagnosis: Localized enlarged lymph nodes[ICD10: R59.0] Diagnosis: Local infection of the skin and subcutaneous tissue, unspecified[ICD10: L08.9] June Sandra MARÍA ELENA APPIAH [facility] CPT- 4: 84962 09/14/2015 ([id number]) OFFICE/OUTPATIENT VISIT EST Diagnosis: Essential (primary) hypertension[ICD10: I10] Diagnosis: Actinic keratosis[ICD10: L57.0] María Elena ELLISLINE Fabiola APPIAH [facility] CPT-4: 04225 09/07/2015 ([id number]) OFFICE/OUTPATIENT VISIT EST Diagnosis: Essential (primary) hypertension[ICD10: I10] Diagnosis: Acute stress reaction[ICD10: F43.0] María Elena [employer] COLON Fabiola [facility] [facility] CPT-4: 58945 08/18/2015 ([id number]) OFFICE/OUTPATIENT VISIT EST Diagnosis: Essential (primary) hypertension[ICD10: I10] María Elena Seamusdawn MONTEROMARÍA ELENA Fabiola APPIAH [facility] CPT-4: 69521 07/07/2015 ([id number]) OFFICE/OUTPATIENT VISIT EST Diagnosis: Essential (primary) hypertension[ICD10: I10] María Elena APPIAH DO [facility] CPT-4: 82499 06/24/2015 ([id number]) OFFICE/OUTPATIENT VISIT EST Diagnosis: Essential (primary) hypertension[ICD10: I10] María Elena APPIAH DO [facility] CPT-4: 55901 06/21/2015 ([id number]) OFFICE/OUTPATIENT VISIT EST Diagnosis: Essential (primary) hypertension[ICD10: I10] Diagnosis: Mixed hyperlipidemia[ICD10: E78.2] Diagnosis: Acute stress reaction[ICD10: F43.0] Diagnosis: Primary insomnia[ICD10: F51.01] María Elena APPIAH DO [facility] CPT-4: 15033 06/16/2015 ([id number]) OFFICE/OUTPATIENT VISIT EST Diagnosis: INSOMNIA NOS[ICD9: 780.52] Diagnosis: HYPERTENSION[ICD9: 401.9] Diagnosis: Stress reaction[ICD9: 308.9] María Elena APPIAH [facility] CPT-4: 90876 06/02/2015 ([id number]) OFFICE/OUTPATIENT VISIT EST Diagnosis: HYPERTENSION[ICD9: 401.9] Diagnosis: Stress reaction[ICD9: 308.9] María Elena APPIAH DO [facility] CPT-4: 21730 05/20/2015 ([id number]) OFFICE/OUTPATIENT VISIT EST Diagnosis: Skin lesion[ICD9: 709.9] 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] María Elena APPIAH [facility] CPT-4: 82894 05/10/2015 ([id number]) OFFICE/OUTPATIENT VISIT EST Diagnosis: SINUSITIS, ACUTE[ICD9: 461.9] Diagnosis: ALLERGIC RHINITIS[ICD9: 477.9] Diagnosis: DERMATITIS NOS[ICD9: 692.9] María Elena REHMAN [facility] CPT-4: 99715 03/16/2015 OFFICE/OUTPATIENT VISIT EST Diagnosis: Otitis media[ICD9: 382.9] Diagnosis: SINUSITIS, ACUTE[ICD9: 461.9] June APPIAH DO [facility] CPT-4: 40711 09/11/2014 ([id number]) OFFICE/OUTPATIENT VISIT EST Diagnosis: HYPERLIPIDEMIA NEC/NOS[ICD9: 272.4] María Elena APPIAH DO [facility] CPT-4: 76693 08/31/2014 ([id number]) OFFICE/OUTPATIENT VISIT EST Diagnosis: - I - HYPERTENSION[ICD9: 401.9] Diagnosis: HYPERLIPIDEMIA NEC/NOS[ICD9: 272.4] María Elena APPIAH DO [facility] CPT-4: 40042 08/27/2014 ([id number]) OFFICE/OUTPATIENT VISIT EST Diagnosis: ABDOMINAL PAIN[ICD9: 789.00] Diagnosis: DYSPEPSIA[ICD9: 536.8] Diagnosis: Thoracic back pain[ICD9: 724.1] María Elena APPIAH DO [facility] CPT-4: 22243 07/21/2014 ([id number]) OFFICE/OUTPATIENT VISIT EST Diagnosis: ALLERGIC RHINITIS[ICD9: 477.9] María Elena APPIAH DO [facility] CPT-4: 66828 07/15/2014 ([id number]) OFFICE/OUTPATIENT VISIT EST Diagnosis: EDEMA[ICD9: 782.3] Diagnosis: Chronic insomnia[ICD9: 780.52] María Elena APPIAH DO [facility] CPT-4: 62417 05/18/2014 ([id number]) OFFICE/OUTPATIENT VISIT EST Diagnosis: Thyromegaly[ICD9: 240.9] Diagnosis: - I - HYPERTENSION[ICD9: 401.9] Diagnosis: ROUTINE MEDICAL EXAM[ICD9: V70.0] Diagnosis: EDEMA[ICD9: 782.3] María Elena APPIAH DO [facility] CPT-4: 05616 05/14/2014 OFFICE/OUTPATIENT VISIT EST Diagnosis: BRONCHITIS, ACUTE[ICD9: 466.0] Diagnosis: SINUSITIS, ACUTE[ICD9: 461.9] María Elena APPIAH DO [facility] CPT-4: 34444 04/21/2014 OFFICE/OUTPATIENT VISIT EST Diagnosis: SINUSITIS, ACUTE[ICD9: 461.9] June VelozAlbertadaniella APPIAH DO [facility] CPT-4: 07303 03/04/2014 ([id number]) OFFICE/OUTPATIENT VISIT EST Diagnosis: VACCINE FOR TDAP[ICD10: Z23] María Elena APPIAH DO [facility] CPT-4: 60704 02/27/2014 ([id number]) OFFICE/OUTPATIENT VISIT EST Diagnosis: Seborrheic keratoses, inflamed[ICD9: 702.11] Diagnosis: ACTINIC KERATOSIS[ICD9: 702.0] Diagnosis: INSOMNIA NOS[ICD9: 780.52] [facility] CPT-4: 93709 01/13/2014 OFFICE/OUTPATIENT VISIT EST Diagnosis: EUSTACHIAN TUBE DYSFUNCTION[ICD9: 381.81] Diagnosis: ALLERGIC RHINITIS[ICD9: 477.9] Diagnosis: Serous otitis media[ICD9: 381.4] María Elena APPIAH [facility] CPT-4: 27010 12/24/2013 ([id number]) OFFICE/OUTPATIENT VISIT EST Diagnosis: SINUSITIS, ACUTE[ICD9: 461.9] Diagnosis: ALLERGIC RHINITIS[ICD9: 477.9] Diagnosis: EUSTACHIAN TUBE DYSFUNCTION[ICD9: 381.81] María Elena APPIAH [facility] CPT-4: 46829 11/12/2013 ([id number]) OFFICE/OUTPATIENT VISIT EST Diagnosis: ALLERGIC RHINITIS[ICD9: 477.9] Diagnosis: SINUSITIS, ACUTE[ICD9: 461.9] María Elena APPIAH [facility] CPT-4: 16618 10/21/2013 ([id number]) OFFICE/OUTPATIENT VISIT EST Diagnosis: ASYMPTOMATIC VARICOSE VEINS[ICD9: 454.9] Diagnosis: INSOMNIA NOS[ICD9: 780.52] María Elena PANDYA [facility] CPT-4: 62703 09/22/2013 OFFICE/OUTPATIENT VISIT EST Diagnosis: SINUSITIS, ACUTE[ICD9: 461.9] June VanBecelaere MARÍA ELENA APPIAH DO [facility] CPT-4: 37395 08/27/2013 ([id number]) OFFICE/OUTPATIENT VISIT EST Diagnosis: CEPHALGIA[ICD9: 784.0] Diagnosis: CEPHALGIA, TENSION[ICD9: 307.81] 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] María Elena APPIAH DO [facility] CPT-4: 52550 08/04/2013 ([id number]) OFFICE/OUTPATIENT VISIT EST Diagnosis: Cervicalgia[ICD9: 723.1] Diagnosis: SPASM OF MUSCLE[ICD9: 728.85] Diagnosis: CEPHALGIA, TENSION[ICD9: 307.81] María Elena APPIAH DO [facility] CPT-4: 75370 07/23/2013 ([id number]) OFFICE/OUTPATIENT VISIT EST Diagnosis: EUSTACHIAN TUBE DYSFUNCTION[ICD9: 381.81] Diagnosis: ALLERGIC RHINITIS[ICD9: 477.9] María Elena APPIAH DO [facility] CPT-4: 92510 06/23/2013 ([id number]) OFFICE/OUTPATIENT VISIT EST Diagnosis: ALLERGIC RHINITIS[ICD9: 477.9] Diagnosis: ACUTE SEROUS OTITIS MEDIA[ICD9: 381.01] Diagnosis: EUSTACHIAN TUBE DYSFUNCTION[ICD9: 381.81] María Elena APPIAH DO [facility] CPT-4: 34172 05/26/2013 ([id number]) OFFICE/OUTPATIENT VISIT EST Diagnosis: HYPERTENSION[ICD9: 401.9] Diagnosis: EDEMA[ICD9: 782.3] Diagnosis: Serous otitis media[ICD9: 381.4] María Elena APPIAH DO [facility] CPT-4: 93473 04/16/2013 ([id number]) OFFICE/OUTPATIENT VISIT EST Diagnosis: SINUSITIS, ACUTE[ICD9: 461.9] Diagnosis: ALLERGIC RHINITIS[ICD9: 477.9] Diagnosis: EDEMA[ICD9: 782.3] Diagnosis: Thyromegaly[ICD9: 240.9] Diagnosis: MALAISE AND FATIGUE[ICD9: 780.79] María Elena APPIAH [facility] CPT-4: 48172 03/05/2013 ([id number]) OFFICE/OUTPATIENT VISIT EST Diagnosis: PAIN, LOWER BACK[ICD9: 724.2] Diagnosis: SPASM OF MUSCLE[ICD9: 728.85] María Elena JUARES LucioJj TD GARIBAY [facility] CPT-4: 71290 12/23/2012 OFFICE/OUTPATIENT VISIT EST Diagnosis: Low back pain[ICD9: 724.2] Lashawn Hicks [facility]: 10031 12/16/2012 ([id number]) OFFICE/OUTPATIENT VISIT EST Diagnosis: PAIN, LOWER BACK[ICD9: 724.2] Diagnosis: SCIATICA[ICD9: 724.3] Diagnosis: Lumbar herniated disc[ICD9: 722.10] María Elena COLON LucioJj TD [facility] CPT-4: 93879 12/09/2012 ([id number]) OFFICE/OUTPATIENT VISIT EST Diagnosis: PAIN, LOWER BACK[ICD9: 724.2] Diagnosis: SCIATICA[ICD9: 724.3] Diagnosis: LUMBAR DISC DISPLACEMENT[ICD9: 722.10] María Elena MARIN LucioJj TD GARIBAY [facility] CPT-4: 93648 12/04/2012 OFFICE/OUTPATIENT VISIT EST Diagnosis: Pneumonia[ICD9: 486] Mary JUARES LucioJj TD [facility] CPT-4: 71941 11/22/2012 ([id number]) OFFICE/OUTPATIENT VISIT EST Diagnosis: PNEUMONIA, ORGANISM[ICD9: 486] Diagnosis: Exacerbation of RAD (reactive airway disease)[ICD9: 493.92] María Elena JUARES LucioJj TD GARIBAY [facility] CPT-4: 54781 11/21/2012 OFFICE/OUTPATIENT VISIT EST Diagnosis: HYPERTENSION[ICD9: 401.9] Diagnosis: Cephalgia[ICD9: 784.0] Lashawn APPIAH [facility] CPT-4: 76081 10/29/2012 ([id number]) OFFICE/OUTPATIENT VISIT EST Diagnosis: MALAISE AND FATIGUE[ICD9: 780.79] Diagnosis: ARTHRALGIA-MULTIPLE SITES[ICD9: 719.49] María Elena Hicks MARIVELER [facility] CPT-4: 62549 10/14/2012 ([id number]) OFFICE/OUTPATIENT VISIT EST Diagnosis: URINARY FREQUENCY[ICD9: 788.41] María Elena APPIAH [facility] CPT-4: 16943 09/27/2012 ([id number]) OFFICE/OUTPATIENT VISIT EST Diagnosis: MALAISE AND FATIGUE[ICD9: 780.79] Diagnosis: ARTHRALGIA-MULTIPLE SITES[ICD9: 719.49] María Elena APPIAH [facility] CPT-4: 26907 09/25/2012 ([id number]) OFFICE/OUTPATIENT VISIT EST Diagnosis: SINUSITIS, ACUTE[ICD9: 461.9] Diagnosis: EUSTACHIAN TUBE DYSFUNCTION[ICD9: 381.81] María Elena APPIAH [facility] CPT-4: 32867 08/29/2012 OFFICE/OUTPATIENT VISIT EST Diagnosis: ACTINIC KERATOSIS[ICD9: 702.0] Diagnosis: Inflamed seborrheic keratosis[ICD9: 702.11] Diagnosis: Skin cancer of face[ICD9: 173.31] Diagnosis: HYPERTENSION[ICD9: 401.9] María Elena SEYMOUR [facility] CPT-4: 48769 08/12/2012 ([id number]) OFFICE/OUTPATIENT VISIT EST Diagnosis: ARTHRALGIA-MULTIPLE SITES[ICD9: 719.49] Diagnosis: GOUT[ICD9: 274.9] Diagnosis: HYPERTENSION[ICD9: 401.9] Diagnosis: Tachycardia[ICD9: 785.0] María Elena ValdesJj FRITZ BRADFORD [facility] CPT-4: 28679 05/06/2012 ([id number]) OFFICE/OUTPATIENT VISIT EST Diagnosis: INSOMNIA NOS[ICD9: 780.52] María Elena Waymindimaryjane MONTEROMARÍA ELENA LucioJj [facility]: 76526 04/03/2012 ([id number]) OFFICE/OUTPATIENT VISIT EST Diagnosis: INSOMNIA NOS[ICD9: 780.52] Diagnosis: HYPERTENSION[ICD9: 401.9] Diagnosis: MIGRAINE NOS/NOT INTRCBL[ICD9: 346.90] María Elena MARIN LucioJj TD [facility] CPT-4: 74280 03/19/2012 ([id number]) OFFICE/OUTPATIENT VISIT EST Diagnosis: CELLULITIS[ICD9: 682.9] Diagnosis: Ankle pain[ICD9: 719.47] Diagnosis: HYPERTENSION[ICD9: 401.9] María Elena MONTEROQUELINE LucioJj SEAMUS [facility] CPT-4: 65430 02/20/2012 ([id number]) OFFICE/OUTPATIENT VISIT EST Diagnosis: MIGRAINE NOS/NOT INTRCBL[ICD9: 346.90] Diagnosis: Vomiting[ICD9: 787.03] María Elena Waymindimaryjane MONTEROMARÍA ELENA LucioJj CIRO Bazzi [facility] CPT-4: 10264 01/30/2012 ([id number]) OFFICE/OUTPATIENT VISIT EST Diagnosis: EDEMA[ICD9: 782.3] Diagnosis: HYPERTENSION[ICD9: 401.9] Diagnosis: ALLERGIC RHINITIS[ICD9: 477.9] Diagnosis: ARTHRALGIA-MULTIPLE SITES[ICD9: 719.49] María Elena REED LucioJj TD [facility] CPT-4: 25154 01/24/2012 ([id number]) OFFICE/OUTPATIENT VISIT EST Diagnosis: SPASM OF MUSCLE[ICD9: 728.85] Diagnosis: Thoracic back pain[ICD9: 724.1] Diagnosis: Cervical pain[ICD9: 723.1] María Elena Hicks KRISTYN PANDYA [facility] CPT-4: 64578 01/10/2012 OFFICE/OUTPATIENT VISIT EST Diagnosis: PAIN, LOWER BACK[ICD9: 724.2] Diagnosis: LUMBAR DISC DISPLACEMENT[ICD9: 722.10] María Elena ISAAC TANIA ValdesJj TD [facility] CPT-4: 07463 12/11/2011 OFFICE/OUTPATIENT VISIT EST Diagnosis: MIGRAINE NOS/NOT INTRCBL[ICD9: 346.90] Diagnosis: SINUSITIS, ACUTE[ICD9: 461.9] María Elena JUARES LucioJj TD [facility] CPT-4: 41858 11/09/2011 OFFICE/OUTPATIENT VISIT EST Diagnosis: MIGRAINE NOS/NOT INTRCBL[ICD9: 346.90] Diagnosis: LYMPHADENOPATHY[ICD9: 785.6] María Elenamarcella APPIAH DO [facility] CPT-4: 65339 09/13/2011 OFFICE/OUTPATIENT VISIT EST Diagnosis: MALAISE AND FATIGUE[ICD9: 780.79] Diagnosis: ARTHRALGIA-MULTIPLE SITES[ICD9: 719.49] María Elena APPIAH DO [facility] CPT-4: 05529 08/31/2011 OFFICE/OUTPATIENT VISIT EST Diagnosis: SINUSITIS, ACUTE[ICD9: 461.9] María Elena APPIAH DO [facility] CPT-4: 58711 07/20/2011 OFFICE/OUTPATIENT VISIT EST Diagnosis: HYPERTENSION[ICD9: 401.9] Diagnosis: PAIN, LOWER BACK[ICD9: 724.2] Diagnosis: SPASM OF MUSCLE[ICD9: 728.85] María Elena APPIAH DO [facility] CPT-4: 49881 07/06/2011 OFFICE/OUTPATIENT VISIT EST Diagnosis: MIGRAINE NOS/NOT INTRCBL[ICD9: 346.90] Diagnosis: HYPERTENSION[ICD9: 401.9] María Elena SEYMOUR [facility] CPT-4: 40837 05/22/2011 OFFICE/OUTPATIENT VISIT EST Diagnosis: SINUSITIS, ACUTE[ICD9: 461.9] Diagnosis: MIGRAINE NOS/NOT INTRCBL[ICD9: 346.90] Diagnosis: Dehydration[ICD9: 276.51] Diagnosis: Vomiting[ICD9: 787.03] María Elena Bazzi [facility] CPT-4: 79051 05/09/2011 ([id number]) OFFICE/OUTPATIENT VISIT EST María Elena APPIAH DO [facility] CPT-4: 47592 02/14/2011 ([id number]) OFFICE/OUTPATIENT VISIT EST María Elena MARIN SJj WAYNDER [facility] CPT-4: 69002 02/03/2011 ([id number]) OFFICE/OUTPATIENT VISIT EST María Elena MARIN SJj WAYNDER [facility] CPT-4: 04916 01/31/2011 ([id number]) OFFICE/OUTPATIENT VISIT EST María Elena APPIAH [facility] CPT-4: 46744 01/25/2011 ([id number]) OFFICE/OUTPATIENT VISIT EST María Elena MARIN SJj [facility] CPT-4: 16122 01/18/2011 ([id number]) OFFICE/OUTPATIENT VISIT EST María Elena MARIN [facility] CPT-4: 81147 11/29/2010 ([id number]) OFFICE/OUTPATIENT VISIT, EST María Elena REED [facility] CPT-4: 65760 10/10/2010 ([id number]) OFFICE/OUTPATIENT VISIT, EST María Elena [facility] CPT-4: 37108 06/07/2010 ([id number]) OFFICE/OUTPATIENT VISIT, EST María Elena [facility] CPT-4: 35238 04/27/2010 ([id number]) OFFICE/OUTPATIENT VISIT, EST María Elena [facility] CPT-4: 88068 04/05/2010 ([id number]) OFFICE/OUTPATIENT VISIT, EST María Elena [facility] CPT-4: 75943 03/09/2010 ([id number]) OFFICE/OUTPATIENT VISIT, EST María Elena [facility] CPT-4: 66799 03/03/2010 ([id number]) OFFICE/OUTPATIENT VISIT, EST María Elena [facility]ED [facility] CPT-4: 84755 01/17/2010 ([id number]) PREV VISIT, EST, AGE 40-64 María Elena COLEMAN [facility] CPT-4: 34812 12/27/2009 Plan of Care Planned Activity Notes [...] ICD-10 : E11.65 10/07/2019 Appointment: Kathleen Zuniga [address] [place], [place] [id number] OFFICE SURGERY 10/07/2019 Visit Diagnosis Plan: Hypertriglyceridemia [...] 09/30/2019 Appointment: María Elena [facility]iah [facility]el[facility] [phone] [facility] [facility] UP 09/30/2019 Patient Education: Premarin- OptimizeRX Coupon [id number] [email or web address].[email or web address]/samplemd/resources/getResource/61/[email or web address]-[email or web address] Completed 09/30/2019 Appointment: María Elena Appiah WPtel: [address] [place], [place] [phone] [place] LAB 09/29/2019 Appointment: María Elena Appiah WPtel: [address] [place], [place] [phone] [place] Won't have the new insurance till [...] 05/28/2019 Appointment: María Elena Appiah WPtel: [address] [place], [place] [phone] [place] FOLLOW UP 05/28/2019 Appointment: María Elena Appiah WPtel: [address] [place] [address] [place] BP CHECK 05/19/2019 Visit Diagnosis Plan: [...] Z79.890 01/22/2019 Appointment: María Elena Appiah WPtel: [address] [place] [address] [place] FOLLOW UP 01/22/2019 Patient Education: estradiol- OptimizeRX Coupon [id number] [email or web address]/[email or web address] guard [email or web address]/resources/getResource/61/[email or web address] Completed 01/22/2019 Appointment: María Elena Appiah WPtel: [address] [place] [address] [place] CANCELED 01/20/2019 Appointment: María Elena Appiah WPtel: [address] [place] [address] [place] LM NO SHOW 01/06/2019 Appointment: María Elena Appiah WPtel: [address] [place] [address] [place] CANCELED 10/17/2018 Appointment: María Elena Appiah WPtel: [address] [place] [address] US BP CHECK 10/09/2018 Visit Diagnosis Plan: [...] I10 09/30/2018 Appointment: María Elena Appiah WPtel: [address] [place], [place] [phone] [place] FOLLOW UP 09/30/2018 Visit Diagnosis Plan: [...] : F51.01 08/27/2018 Appointment: María Elena Appiahtel: [address] [place] [address] ACUTE ILLNESS 08/27/2018 Appointment: María Elena Appiah WPtel: [address] [place] [address] [place] Patient stated she went out to [...] prn. Tyle... 08/09/2018 Appointment: María Elena Appiahtel: [address] [place] [address] ACUTE ILLNESS 08/09/2018 Appointment: María Elena Appiah WPtel: [address] [place] [address] NO SHOW 08/08/2018 Visit Diagnosis Plan: Anxiety [...] 07/22/2018 Appointment: María Elena Appiah WPtel: [phone] [facility] ACUTE ILLNESS 07/22/2018 Appointment: María Elena Appiah WPtel: [phone] [facility] [place] INJECTION 06/19/2018 Patient Education: Patient Medication [...] ICD-10 : L03.031 06/17/2018 Appointment: Kathleen Zuniga [address] [place] [address] ACUTE ILLNESS 06/17/2018 Patient Education: Patient Medication [...] ICD-10 : B02.9 05/16/2018 Appointment: Kathleen Zuniga [address] [place] [address] ACUTE ILLNESS 05/16/2018 Patient Education: Patient Medication [...] : L03.115 03/20/2018 Appointment: Kathleen Zuniga [address] [id number] FOLLOW UP 03/20/2018 Patient Education: Patient Medication [...] : L03.115 03/18/2018 Appointment: Kathleen Zuniga [address] [place], [place] [address] FOLLOW UP 03/18/2018 Patient Education: Patient Medication [...] : L03.115 03/15/2018 Appointment: Kathleen Zuniga [address] [place], [place] [id number] ACUTE ILLNESS 03/15/2018 Patient Education: Patient Medication [...] : J01.90 02/11/2018 [facility]ment[facility] [facility] 02/11/2018 Patient Education: Patient Medication Summary Completed 02/11/2018 Appointment: María Elena Appiah WPtel: [phone] [place] [place] INJECTION 02/01/2018 Patient Education: Patient Medication [...] : M51.16 01/30/2018 Appointment: [facility] [address] [facility] [facility] 01/30/2018 Patient Education: Patient [...] E11.65 12/18/2017 Appointment: María Elena Appiah WPtel: [address] [place] [address] Annual Well Visit 12/18/2017 Patient Education: Patient Medication Summary Completed 12/18/2017 Care Plan: Referral Order SNOMED-CT : [id number] Pending 12/18/2017 Appointment: María Elena Appiah WPtel: [facility] [address] INJECTION 12/10/2017 Patient Education: Patient Medication [...] ICD-10 : L03.031 12/07/2017 Appointment: Kathleen Zuniga [address] [place] [address] ACUTE ILLNESS 12/07/2017 Patient Education: Patient Medication [...] : J01.00 10/08/2017 Appointment: Kathleen Zuniga [address] [facility] ACUTE ILLNESS 10/08/2017 Patient Education: Patient Medication Summary Completed 10/08/2017 Appointment: María Elena Appiah [facility]Ptel[facility] [phone] [facility] [place] INJECTION 09/21/2017 Patient Education: Patient Medication [...] Diagnosis Plan: Insomnia, unspecified Discussion : nba brownestelsa since ineffective. trial of hydroxyzine for anxiety and sleep. notify office if ineffective. follow up in one month as well. home sleep apnea test to be ordered to rule out apnea. ICD-9 : 780.52 ICD-10 : G47.00 09/20/2017 Visit Diagnosis Plan: Snoring Discussion: home sleep a pnea test to be ordered. ICD-9 : 786.09 ICD-10 : R06.83 09/20/2017 Appointment: [facility] [facility] 09/20/2017 Patient Education: Patient [...] ICD-10 : L60.0 08/29/2017 Appointment: Kathleen Zuniga [address] [place] [address] OFFICE SURGERY 08/29/2017 Patient Education: Patient Medication Summary Completed 08/29/2017 Visit Diagnosis Plan: Actinic keratosis Discussion: Cr yotherapy as above ICD-9 : 702.0 ICD-10 : L57.0 08/01/2017 Appointment: María Elena Appiah WPtel: [address] [place] [address] OFFICE SURGERY 08/01/2017 Patient Education: Patient Medication Summary Completed 08/01/2017 Appointment: María Elena Appiah WPtel: [address] [place] [address] PATIENT THOUGHT APPOINTMENT WAS TOMORROW 07/26/17 CALLED 15 MINUTES BEFORE APPT TO SAY SHE DIDN'T HAVE ANYONE TO COVER HER BUSINESS AND WOULD NOT MAKE IT NO SHOW 07/25/2017 Visit Diagnosis Plan: Cellulitis of left toe Discussio n: Clindamycin and notify if worsening or persistis ICD-9 : 681.10 ICD-10 : L03.032 07/19/2017 Appointment: María Elena Appiahtel: [facility] [address] MEDICATION REVIEW 07/19/2017 Patient Education: Patient Medication Summary Completed 07/19/2017 Appointment: María Elena Appiah WPtel: [phone] [facility] [place] CANCELED 07/04/2017 Visit Diagnosis Plan: Generalized hyperhidrosis Discus ian: CBC, CMP, TSH, free T4 ordered to assess. will review labs. ICD-9 : 780.8 ICD-10 : R61 06/27/2017 Visit Diagnosis Plan: Chronic sinusitis, unspecified D iscussion: Referral sent to dr. albarado in [place] per patient request. patient has been treated multiple times for sinus infections with no recovery. patient was seen by dr sanchez in the past with no interventions. patient has deviated septum which may be affecting her sinuses. 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, including hip Discussion: Shave removal of above lesio n--sent to pathology ICD-9 : 216.7 ICD-10 : D23.72 01/24/2017 Appointment: María Elena Appiah WPtel: [address] [place], [place] [address] 01/23 confirmed ~sl OFFICE SURGERY 01/24/2017 Patient Education: Patient Medication Summary Completed 01/24/2017 Appointment: Loan Sánchez [address] [place], [place] [phone] 01/09 rescheduled~sl RESCHEDULED 01/15/2017 Visit Diagnosis Plan: [...] L81.4 12/13/2016 Appointment: María Elena Appiah WPtel: [address] [place], [place] [id number] 12/12 confirmed ~ MEDICATION REVIEW 12/13/2016 Patient Education: Patient Medication Summary Completed 12/13/2016 Appointment: María Elena Appiah WPtel: [address] [place], [place] [id number] [place] rescheduled for 12/13/16 at 11am RESCHEDULED 0 12/06/2016 Appointment: María Elena Appiah WPtel: [address] [place], [place] [id number] [place] CANCELED 11/23/2016 Patient Education: Patient Medication [...] F51.01 11/01/2016 Appointment: María Elena Appiah WPtel: [address] [place], [place] [phone] [place] 10/31 lm `sl 11/01 lm`sl MEDICATION REVIEW 017 Patient Education: Patient Medication Summary Completed 11/01/2016 Referral: Canelo Overton WPtel: [phone] [id number] [place] Referral Initiated 10/30/2016 Visit Diagnosis Plan: [...] 10/17/2016 Appointment: María Elena Appiah WPtel: [address] [place], [place] [phone] [place] 10/16 confirmed ~sl PAP 10/17/2016 Patient Education: Patient Medication Summary Completed 10/17/2016 Care Plan: MAMMOGRAM SCREENING LOINC : 2 [id number] Pending 10/17/2016 Visit Diagnosis Plan: Other seasonal allergic rhinitis Discussion: Decadron/Garamycin Nasal Conley Mix Too soon for steroid Retry zyrtec 10mg daily ICD-9 : 477.9 ICD-10 : J30.2 10/10/2016 Appointment: María Elena Appiah WPtel: [address] [place], [place] [phone] [place] FOLLOW UP 10/10/2016 Patient Education: Patient Medication Summary Completed 10/10/2016 Appointment: María Elena Appiah WPtel: [address] [place], [place] [phone] [place] 10/02 reschedule `sl RESCHEDULED 10/02/2016 Visit Plan: See surgery for removal of n ew left arm lesion and right foot lesion Lyrica to use next month for left arm paresthesias Continue current meds Discussed sunscreen/sunblock combo 09/19/2016 Appointment: María Elena Appiah WPtel: [address] [place], [place] [phone] 09/18 confirmed ~ FOLLOW UP 09/19/2016 Patient Education: Patient Medication Summary Completed 09/19/2016 Patient Education: Patient Medication Summary Completed 09/18/2016 Care Plan: MAMMOGRAM BOTH BREASTS LOINC : 41197-1 Pending 09/18/2016 Visit Plan: Discussed that needs [...] 08/24/2016 Appointment: María Elena Appiah WPtel: [address] [place], [place] [phone] 08/24/2016 Patient Education: Patient Medication Summary Completed 08/24/2016 Patient Education: Patient Medication Summary Completed 08/23/2016 Care Plan: MAMMOGRAM SCREENING LOINC : 2 6347-5 Pending 08/23/2016 Visit Plan: Finish doxycycline Add Breo 100/25 1 p BID for 2 weeks If not improving within next 2 days will get CXR 08/16/2016 Appointment: María Elena Appiah WPtel: [address] [place], [place] [phone] ACUTE ILLNESS 08/16/2016 Patient Education: Patient Medication Summary Completed 08/16/2016 Visit Plan: Supportive care. Rest, Fluid s, Tylenol/Motrin prn fever or bodyaches. Notify if worsening symptoms. Doxycyline and Prednisone 08/10/2016 Appointment: María Elena Appiah WPtel: [address] [place], [place] [phone] 08/09 lm`sl....confirmed-sp FOLLOW UP 09/2015 Patient Education: Patient Medication Summary Completed 08/10/2016 Visit Plan: Saline nasal flushes prn. Ty lenol/Motrin prn headache. Notify if persists/symptoms worsening. Dexamethasone 8mg IM today May use coricedan and mucinex 08/02/2016 Appointment: María Elena Appiah WPtel: [address] [place] [address] ACUTE ILLNESS 08/02/2016 Patient Education: Patient Medication Summary Completed 08/02/2016 Visit Plan: Cryotherapy as above and lef t forearm lesion removal as above with 5-0 punch biopsy and sent to path Return in 10 days for suture removal 08/01/2016 Appointment: María Elena Appiah WPtel: [address] [place] [address] 07/31 confirmed`~sl OFFICE SURGERY 08/01/2016 Patient Education: Patient Medication Summary Completed 08/01/2016 Visit Plan: Stop clindamycin Check CBC, CMP, ESR now/STAT 07/27/2016 Appointment: María Elena Appiah WPtel: [address] [place] [address] ACUTE ILLNESS 07/27/2016 Patient Education: Patient Medication Summary Completed 07/27/2016 Visit Plan: Update lab and check ABIs to start with Will likely need cardiology evaluation to rule out PVD Clindamycin for 10 days Daily yogurt or probiotic Will return for removal of left arm lesions 07/20/2016 Appointment: María Elena Appiah WPtel: [address] [place] [address] ACUTE ILLNESS 07/20/2016 Patient Education: Patient Medication Summary Completed 07/20/2016 Patient Education: Patient Medication Summary Completed 07/20/2016 Care Plan: MAMMOGRAM BOTH BREASTS LOINC : 70574-1 Pending 07/20/2016 Care Plan: US EXAM CHEST LOINC : 61005-7 Pending 07/20/2016 Visit Plan: Wound culture collected from left great toe Appearance is somewhat staph like Rx as above Wound cleanser and skin care reviewed May need to add oral antibiotic if sores do not heal or continue to reoccur 07/06/2016 Appointment: Loan Sánchez [address] [place] [address] ACUTE ILLNESS 07/06/2016 Patient Education: Patient Medication Summary Completed 07/06/2016 Appointment: María Elena Appiah WPtel: [address] [place] [address] [place] INJECTION 05/25/2016 Patient Education: Patient Medication Summary Completed 05/25/2016 Visit Plan: Saline nasal flushes prn. Ty lenol/Motrin prn headache. Notify if persists/symptoms worsening. Dexamethasone and Rocephin given 04/26/2016 Appointment: María Elena Appiah WPtel: [address] [place] [address] ACUTE ILLNESS 04/26/2016 Patient Education: Patient Medication Summary Completed 04/26/2016 Visit Plan: Check CBC, CMP, TSH, FreeT4, HbA1C, estradiol, lipids in AM 03/02/2016 Appointment: María Elena Appiah WPtel: [address] [place] [address] 03/01 lm~sl ACUTE ILLNESS 03/02/2016 Patient Education: Patient Medication Summary Completed 03/02/2016 Visit Plan: Exam is nearly normal Needs to be taking daily antihistamine Would prefer to use oral steroids instead of shot but patient insist that oral steroids cause horrible headaches for her Will given kenalog IM instead 02/09/2016 Appointment: Loan Sánchez [address] [place] [address] ACUTE ILLNESS 02/09/2016 Patient Education: Patient Medication Summary Completed 02/09/2016 Visit Plan: Culture urine Macrobid DC xa nax Trial of Ativan 1mg q HS 01/24/2016 Appointment: María Elena Appiah WPtel: [address] [place] [address] ACUTE ILLNESS 01/24/2016 Patient Education: Patient Medication Summary Completed 01/24/2016 Visit Plan: No steroid or rocephin injec tion warranted Can have oral prednisone Continue current home regimen Needs to follow up with Dr Sanchez if problems persist 12/23/2015 Appointment: Loan Sánchez [address] [place] [address] ACUTE ILLNESS 12/23/2015 Patient Education: Patient Medication Summary Completed 12/23/2015 Visit Plan: Saline nasal flushes prn. Ty lenol/Motrin prn headache. Notify if persists/symptoms worsening. Kenalog 40mg IM today 12/08/2015 Appointment: María Elena Appiah WPtel: [address] [place] [address] 12/06 confirmed~ ACUTE ILLNESS 12/08/2015 Patient Education: Patient Medication Summary Completed 12/08/2015 Appointment: María Elena Appiah WPtel: [address] [place] [address] ACUTE ILLNESS 11/18/2015 Patient Education: Patient Medication Summary Completed 10/11/2015 Appointment: María Elena Appiah WPtel: [address] [place] [address] [place] INJECTION 10/07/2015 Patient Education: Patient Medication Summary Completed 10/07/2015 Visit Plan: Check renal arterial doppler s and ECHO Change amlodopine to lotrel 5/20mg q HS Will need stress test as well Check CMP, uric acid, ESR 10/06/2015 Appointment: María Elena Appiah WPtel: [address] [place] [address] ACUTE ILLNESS 10/06/2015 Patient Education: Patient Medication Summary Completed 10/06/2015 Patient Education: [facility] - [employer]aving [employer] - Amlodipine Besylate - 18-64 - Dynamic Portal ID Completed 10/06/2015 Appointment: María Elena Appiah WPtel: [address] [place] [address] FOLLOW UP 09/22/2015 Visit Plan: Cephalexin 500 mg PO bid Mery ly topical Mupirocin to lesions on left lateral neck and face Follow-up in one week. Sooner if symptoms worsen 09/14/2015 Appointment: June Flores WPtel: [address] [place], [place] [phone] ACUTE ILLNESS 09/14/2015 Patient Education: Patient Medication Summary Completed 09/14/2015 Visit Plan: Change bystolic to bedtime d osing and amlodopine to morning dosing Cryotherapy as above to AKs 09/07/2015 Appointment: María Elena Appiah WPtel: [address] [place] [address] 09/06 appointment made and confirmed ~sl FOLLOW UP 09/07/2015 Patient Education: Patient Medication Summary Completed 09/07/2015 Visit Plan: Increase bystolic back to 20 mg daily but will split and take 10mg in AM and 10mg in PM Stress Reducers 08/18/2015 Appointment: María Elena Appiah WPtel: [address] [place] [address] 08/17/15 appt confirmed cn ACUTE ILLNESS 08/18 Patient Education: Patient Medication Summary Completed 08/18/2015 Appointment: María Elena Appiah WPtel: [address] [place] [address] BP CHECK 07/07/2015 Patient Education: Patient Medication Summary Completed 07/07/2015 Appointment: María Elena Appiah WPtel: [address] [place] [address] BP CHECK 06/24/2015 Patient Education: Patient Medication Summary Completed 06/24/2015 Appointment: María Elena Appiah WPtel: [address] [place] [address] BP CHECK 06/21/2015 Patient Education: Patient Medication Summary Completed 06/21/2015 Visit Plan: Lab discussed Continue pipere nt meds and lifestyle modification Recheck lab in 6mos 06/16/2015 Appointment: María Elena Appiah WPtel: [address] [place], [place] [phone] 06/15 confirmed FOLLOW UP 06/16/2015 Patient Education: Patient Medication Summary Completed 06/16/2015 Patient Education: Patient Medication Summary Completed 06/15/2015 Visit Plan: Increase cymbalta to 60mg q HS Keep clonidine at current dose Recheck 2weeks Change xanax to klonopin 06/02/2015 Appointment: María Elena Appiah WPtel: [address] [place] [address] 06/02 FOLLOW UP 06/02/2015 Patient Education: Patient Medication Summary Completed 06/02/2015 Appointment: María Elena Appiah WPtel: [address] [place] [address] ACUTE ILLNESS 05/24/2015 Visit Plan: Increase clonidine to 0.2mg q HS Add cymbalta 30mg q HS Recheck 2weeks Stress Reducers Check fasting lab Discussed sleep study 05/20/2015 Appointment: María Elena Appiah WPtel: [address] [place] [address] ACUTE ILLNESS 05/20/2015 Patient Education: Patient Medication Summary Completed 05/20/2015 Patient Education: [facility] - [employer] - Cymbalta - 18-64 - Dynamic Portal ID Completed 05/20/2015 Appointment: María Elena Appiah WPtel: [address] [place] [address] BP CHECK 05/19/2015 Patient Education: Patient Medication Summary Completed 05/19/2015 Visit Plan: Topical Bactroban alternatin g with topical betamethasone Recheck 2weeks 05/10/2015 Appointment: María Elena Appiah WPtel: [address] [place], [place] [phone] 05/07 vm cn...05/07 appt confirmed OFFICE SURGER Y 05/10/2015 Patient Education: Patient Medication Summary Completed 05/10/2015 [facility]: [id number] Referral Initiated 05/04/2015 Visit Plan: Saline nasal flushes prn. Ty lenol/Motrin prn headache. Notify if persists/symptoms worsening. Depomedrol 40mg IM today 03/16/2015 Appointment: María Elena Appiah WPtel: [address] [place] [address] ACUTE ILLNESS 03/16/2015 Patient Education: Patient Medication Summary Completed 03/16/2015 Appointment: María Elena Appiah WPtel: [address] [place] [address] ER Follow UP 03/09/2015 Visit Plan: Cryotherapy to lesions as ab ove 10/27/2014 Appointment: María Elena Appiah WPtel: [address] [place] [address] OFFICE SURGERY 10/27/2014 Patient Education: Patient Medication Summary Completed 10/27/2014 Appointment: June Flores WPtel: [address] [place] [address] ACUTE ILLNESS 09/11/2014 Patient Education: Patient Medication Summary Completed 09/11/2014 Visit Plan: Lab discussed Lipitor 10mg d aily Coenzyme Q-10 400mg daily Vitamin D3 5000u daily Recheck lipids with LFTs in 3mos then fwup 08/31/2014 Appointment: María Elena Appiah WPtel: [address] [place] [address] 08/28 voicemail FOLLOW UP 08/31/2014 Patient Education: Patient Medication Summary Completed 08/31/2014 Appointment: María Elena Appiah WPtel: [address] [place] [address] [place] LAB 08/27/2014 Appointment: María Elena Appiah WPtel: [address] [place] [address] LAB 08/27/2014 Patient Education: Patient Medication Summary Completed 08/27/2014 Appointment: María Elena Appiah WPtel: [address] [place] [address] ACUTE ILLNESS 07/23/2014 Appointment: María Elena Appiah WPtel: [address] [place], [place] [phone] ACUTE ILLNESS 07/21/2014 Patient Education: Patient Medication Summary Completed 07/21/2014 Visit Plan: Kenalog 40mg IM today Contin ue narendra and singulair Add Flonase 07/15/2014 Appointment: María Elena Appiah WPtel: [address] [place], [place] [phone] ACUTE ILLNESS 07/15/2014 Appointment: María Elena Appiah WPtel: [address] [place], [place] [phone] ACUTE ILLNESS 07/15/2014 Patient Education: Patient Medication Summary Completed 07/15/2014 Visit Plan: Will do metolazone 2.5mg prn with 6 potassium and see if causes as severe cramping Trial of of seroquel XR 50mg q PM with evening meal and let us know how works 05/18/2014 Appointment: María Elena Appiah WPtel: [address] [place], [place] [phone] 05/15 left message FOLLOW UP 05/18/2014 Patient Education: Patient Medication Summary Completed 05/18/2014 Appointment: María Elena Appiah WPtel: [address] [place], [place] [phone] [place] LAB 05/14/2014 Patient Education: Patient Medication Summary Completed 05/14/2014 Appointment: María Elena Appiah WPtel: [address] [place], [place] [phone] [place] INJECTION 04/22/2014 Visit Plan: Rocephin and Kenalog today a nd finish abx given from urgent care 04/21/2014 Appointment: María Elena Appiah WPtel: [address] [place], [place] [phone] [place] INJECTION 04/21/2014 Patient Education: Patient Medication Summary Completed 04/21/2014 Appointment: June Flores WPtel: [address] [place], [place] [phone] ACUTE ILLNESS 03/04/2014 Patient Education: Patient Medication Summary Completed 03/04/2014 Appointment: María Elena Appiah WPtel: [address] [place] [address] [place] INJECTION 02/27/2014 Patient Education: Patient Medication Summary Completed 02/27/2014 Visit Plan: Cryotherapy as above to all lesions Patient wants to try no meds for insomnia for a while and see how goes 01/13/2014 Appointment: María Elena Appiah WPtel: [address] [place] [address] OFFICE SURGERY 01/13/2014 Patient Education: Patient Medication Summary Completed 01/13/2014 Visit Plan: Stop Melatonin Stop Soma Tri al of trazadone 75mg q HS See ENT for possible tubes as has had chronic ETD and serous otitis media with numerous steroids 12/24/2013 Appointment: María Elena Appiah WPtel: [address] [place] [address] ACUTE ILLNESS 12/24/2013 Patient Education: Patient Medication Summary Completed 12/24/2013 Visit Plan: Saline nasal flushes prn. Ty lenol/Motrin prn headache. Notify if persists/symptoms worsening. 11/12/2013 Appointment: María Elena Appiah WPtel: [address] [place] [address] ACUTE ILLNESS 11/12/2013 Patient Education: Patient Medication Summary Completed 11/12/2013 Appointment: María Elena Appiah WPtel: [address] [place] [address] ACUTE ILLNESS 10/21/2013 Patient Education: Patient Medication Summary Completed 10/21/2013 Visit Plan: Sleep hygiene and sleep rout ine Melatonin 10mg q HS Support stockings and observe 09/22/2013 Appointment: María Elena Apipah WPtel: [address] [place] [address] ACUTE ILLNESS 09/22/2013 Patient Education: Patient Medication Summary Completed 09/22/2013 Appointment: Sandra June M WPtel: [address] [place] [address] ACUTE ILLNESS 08/27/2013 Patient Education: Patient Medication Summary Completed 08/27/2013 Visit Plan: Proceed with CT scan of head /neck Proceed with occipital nerve injections Butrans 20mcg patch weekly until can get into see Dr. Mcdonough for injections 08/04/2013 Appointment: María Elena Appiah WPtel: [address] [place] [address] FOLLOW UP 08/04/2013 Patient Education: Patient Medication Summary Completed 08/04/2013 Visit Plan: OMT done Daily neck stretche s, moist heat Increase Celebrex to 200mg BID Add flexeril 07/23/2013 Appointment: María Elena Appiah WPtel: [address] [place] [address] 07/22 voicemail FOLLOW UP 07/23/2013 Patient Education: Patient Medication Summary Completed 07/23/2013 Appointment: María Elena Appiah WPtel: [address] [place] [address] ACUTE ILLNESS 06/23/2013 Patient Education: Patient Medication Summary Completed 06/23/2013 Appointment: María Elena Appiah WPtel: [address] [place] [address] ACUTE ILLNESS 05/26/2013 Patient Education: Patient Medication Summary Completed 05/26/2013 Visit Plan: Decrease clonidine to 0.1mg TID If BP remains stable consider decreasing amlodopine Prednisone for 5 days BP check in 1mo 04/16/2013 Appointment: María Elena Appiah WPtel: [address] [place] [address] 04/14 pt called and confirmed appt FOLLOW UP 04/16/2013 Patient Education: Patient Medication Summary Completed 04/16/2013 Appointment: María Elena Appiah WPtel: [address] [place] [address] ACUTE ILLNESS 03/05/2013 Patient Education: Patient Medication Summary Completed 03/05/2013 Visit Plan: Pt has MARIA ELENA on with Dr. Mcdonough Continue Butrans patch Refill Hydrocodone early tomorrow 12/23/2012 Appointment: María Elena Appiah WPtel: [address] [place] [address] FOLLOW UP 12/23/2012 Patient Education: Patient Medication Summary Completed 12/23/2012 Appointment: Lashawn Eckert WPtel: [address] [place] [address] ACUTE ILLNESS 12/16/2012 Patient Education: Patient Medication Summary Completed 12/16/2012 Visit Plan: Proceed with updated MRI of LS spine Continue gabapentin and add soma and diclofenac Will likely need to go for another epidural 12/09/2012 Appointment: María Elena Appiah WPtel: [address] [place] [address] ACUTE ILLNESS 12/09/2012 Patient Education: Patient Medication Summary Completed 12/09/2012 Visit Plan: Injection as above Finish me drol dose pack Chiropracter this afternoon 12/04/2012 Appointment: María Elena Appiah WPtel: [address] [place] [address] ACUTE ILLNESS 12/04/2012 Patient Education: Patient Medication Summary Completed 12/04/2012 Appointment: Mary Tillman WPtel: [address] [place] [address] FOLLOW UP 11/22/2012 Patient Education: Patient Medication Summary Completed 11/22/2012 Appointment: María Elena Appiah WPtel: [address] [place] [address] ACUTE ILLNESS 11/21/2012 Patient Education: Patient Medication Summary Completed 11/21/2012 Appointment: María Elena Appiah WPtel: [address] [place] [address] BP CHECK 11/07/2012 Patient Education: Patient Medication [...] re-check. 10/29/2012 Appointment: Lashawn Eckert WPtel: [address] [place] [address] ACUTE ILLNESS 10/29/2012 Patient Education: Patient Medication Summary Completed 10/29/2012 Appointment: María Elena Appiah WPtel: [address] [place] [address] ACUTE ILLNESS 10/14/2012 Patient Education: Patient Medication Summary Completed 10/14/2012 Appointment: María Elena Appiah WPtel: [address] [place] [address] 09/27/2012 Patient Education: Patient Medication Summary Completed 09/27/2012 Appointment: María Elena Appiah WPtel: [address] [place] [address] ACUTE ILLNESS 09/25/2012 Patient Education: Patient Medication Summary Completed 09/25/2012 Appointment: María Elena Appiah WPtel: [address] [place] [address] BP CHECK 09/24/2012 Appointment: María Elena Appiah WPtel: [address] [place] [address] ACUTE ILLNESS 08/29/2012 Patient Education: Patient Medication Summary Completed 08/29/2012 Visit Plan: Cryotherapy as above See Karlos m for right ear lesion--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 ACUTE ILLNESS 05/06/2012 Patient Education: Patient Medication Summary Completed 05/06/2012 Visit Plan: Pt wants to hold on any furt her sleep medications 04/03/2012 Appointment: María Elena Appiah WPtel: [address] [place] [address] FOLLOW UP 04/03/2012 Patient Education: Patient Medication Summary Completed 04/03/2012 Appointment: María Elena Appiah WPtel: [address] [place] [address] FOLLOW UP 03/19/2012 Patient Education: Patient Medication Summary Completed 03/19/2012 Appointment: María Elena Appiah WPtel: [address] [place] [address] BP CHECK 02/22/2012 Patient Education: Patient Medication Summary Completed 02/22/2012 Appointment: María Elena Appiah WPtel: [address] [place] [address] BP CHECK 02/21/2012 Patient Education: Patient Medication Summary Completed 02/21/2012 Visit Plan: Doxycycline and bactroban fo r foot Supportive care on ankles and knees Add norvasc for BP 02/20/2012 Appointment: María Elena Appiah WPtel: [address] [place] [address] ER Follow UP 02/20/2012 Patient Education: Patient Medication Summary Completed 02/20/2012 Appointment: María Elena Appiah WPtel: [address] [place] [address] ACUTE ILLNESS 01/30/2012 Patient Education: Patient Medication Summary Completed 01/30/2012 Appointment: María Elena Appiahtel: [address] [place] [address] ACUTE ILLNESS 01/24/2012 Patient Education: Patient Medication Summary Completed 01/24/2012 Visit Plan: Daily back stretches, moist heat, Biofreeze prn OMT done 01/10/2012 Appointment: María Elena Appiahtel: [address] [place] [address] ACUTE ILLNESS 01/10/2012 Patient Education: Patient Medication Summary Completed 01/10/2012 Appointment: María Elena Appiahtel: [address] [place] [address] FOLLOW UP 12/11/2011 Patient Education: Patient Medication Summary Completed 12/11/2011 Appointment: María Elena Appiahtel: [address] [place] [address] ACUTE ILLNESS 11/09/2011 Patient Education: Patient Medication Summary Completed 11/09/2011 Appointment: María Elena Appiahtel: [address] [place] [address] ACUTE ILLNESS 09/13/2011 Patient Education: Patient Medication Summary Completed 09/13/2011 Visit Plan: Check CBC, TSH, Free T4, CMP , ESR, Vit D, B12 now Start Prednisone today 08/31/2011 Appointment: María Elena Appiahtel: [address] [place] [address] ACUTE ILLNESS 08/31/2011 Patient Education: Patient Medication Summary Completed 08/31/2011 Appointment: María Elena Appiahtel: [address] [place] [address] [place] INJECTION 07/20/2011 Patient Education: Patient Medication Summary Completed 07/20/2011 Visit Plan: Continue current meds Monite r BP Cont stretches from PT 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 07/06/2011 Appointment: María Elena Appiahtel: [address] [place], [place] [phone] [place] FOLLOW UP 07/06/2011 Patient Education: Patient Medication Summary Completed 07/06/2011 Appointment: María Elena Appiah WPtel: [address] [place], [place] [phone] [place] BP CHECK 06/06/2011 Patient Education: Patient Medication Summary Completed 06/06/2011 Visit Plan: Add Bystolic at 2.5mg QAM Ad d Robaxin 750mg 2 po q HS BP check in 2wks 05/22/2011 Appointment: María Elena Appiah WPtel: [address] [place] [address] FOLLOW UP 05/22/2011 Patient Education: Patient Medication Summary Completed 05/22/2011 Appointment: María Elena Appiah WPtel: [address] [place], [place] [phone] ER Follow UP 05/09/2011 Patient Education: Patient Medication Summary Completed 05/09/2011 Appointment: María Elena Appiah WPtel: [address] [place], [place] [phone] FOLLOW UP 02/22/2011 Visit Plan: Rx written for Hydrocodone 1 0/325mg #240 See Ortho 02/14/2011 Appointment: María Elena Appiah WPtel: [address] [place], [place] [phone] OMT 02/14/2011 Patient Education: Patient Medication Summary [...] work. 02/03/2011 Appointment: Lashawn Eckert WPtel: [address] [place] [address] ACUTE ILLNESS 02/03/2011 Patient Education: Patient Medication Summary Completed 02/03/2011 Visit Plan: OMT done Cont daily stretche s 01/31/2011 Appointment: María Elena Appiah WPtel: [address] [place] [address] ACUTE ILLNESS 01/31/2011 Patient Education: Patient Medication Summary Completed 01/31/2011 Visit Plan: Continue pain meds OMT done Proceed with PT No work this summer01/25/2011 Appointment: María Elena Appiah WPtel: [address] [place] [address] ACUTE ILLNESS 01/25/2011 Patient Education: Patient Medication Summary Completed 01/25/2011 Visit Plan: Start PT Long discussion abo ut getting pain meds from only us and can only have max of 4grams of tylenol per day Change to Hydrocodone 10/325mg 1- 2 po TID prn pain--#180 called to Radha 01/18/2011 Appointment: María Elena Appiah WPtel: [address] [place] [address] FOLLOW UP 01/18/2011 Patient Education: Patient Medication Summary Completed 01/18/2011 Visit Plan: Daily back stretches, moist heat, Biofreeze prn 11/29/2010 Appointment: María Elena Appiah WPtel: [address] [place] [address] ER Follow UP 11/29/2010 Patient Education: Patient Medication Summary Completed 11/29/2010 Visit Plan: Saline nasal flushes prn. Ty lenol/Motrin prn headache. Notify if persists/symptoms worsening. Finish augmentin Add Medrol Dose Pack 10/10/2010 Appointment: María Elena Appiah WPtel: [address] [place], [place] [phone] ACUTE ILLNESS 10/10/2010 Patient Education: Patient Medication Summary Completed 10/10/2010 Visit Plan: Cryotherapy x3 to multiple l esions on both forearms 07/19/2010 Appointment: María Elena Appiah WPtel: [address] [place], [place] [phone] OFFICE SURGERY 07/19/2010 Patient Education: Patient Medication Summary Completed 07/19/2010 Appointment: María Elena Appiah WPtel: [address] [place], [place] [phone] [place] BP CHECK 07/06/2010 Patient Education: Patient Medication Summary Completed 07/06/2010 Appointment: María Elena Appiah WPtel: [address] [place], [place] [phone] BP CHECK 06/30/2010 Patient Education: Patient Medication Summary Completed 06/30/2010 Appointment: María Elena Appiah WPtel: [address] [place], [place] [id number] US BP CHECK 06/20/2010 Patient Education: Patient Medication Summary Completed 06/20/2010 Visit Plan: Change Diovan to Exforge 160 /5mg QD OMT done to thoracics BP check in 2wks 06/07/2010 Appointment: María Elena Appiah WPtel: [address] [place], [place] [phone] US FOLLOW UP 06/07/2010 Patient Education: Patient Medication Summary Completed 06/07/2010 Appointment: María Elena Appiah WPtel: [address] [place], [place] [phone] [place] BP CHECK 06/03/2010 Patient Education: Patient Medication Summary Completed 06/03/2010 Appointment: María Elena Appiah WPtel: [address] [place], [place] [phone] [place] BP CHECK 06/01/2010 Patient Education: Patient Medication Summary Completed 06/01/2010 Visit Plan: Irritated skin tags to left neck x2 excised at base with scissors and base cauterized 05/30/2010 Appointment: María Elena Appiahtel: [address] [place] [address] OFFICE SURGERY 05/30/2010 Patient Education: Patient Medication Summary Completed 05/30/2010 Visit Plan: Saline nasal flushes prn. Ty lenol/Motrin prn headache. Notify if persists/symptoms worsening. Restart Nasonex Has allergy testing set for May 25 04/27/2010 Appointment: María Elena Appiah WPtel: [address] [place] [address] ACUTE ILLNESS 04/27/2010 Patient Education: Patient Medication Summary Completed 04/27/2010 Visit Plan: Saline nasal flushes prn. Ty lenol/Motrin prn headache. Notify if persists/symptoms worsening. Omnaris BID plus injections 04/05/2010 Appointment: María Elena Appiah WPtel: [address] [place] [address] ACUTE ILLNESS 04/05/2010 Patient Education: Patient Medication Summary Completed 04/05/2010 Visit Plan: Saline nasal flushes prn. Ty lenol/Motrin prn headache. Notify if persists/symptoms worsening. 03/09/2010 Appointment: María Elena Appiah WPtel: [address] [place] [address] ACUTE ILLNESS 03/09/2010 Patient Education: Patient Medication Summary Completed 03/09/2010 Visit Plan: Cont Clonidine as is Cont Pr emarin Fwup with surgery as scheduled 03/03/2010 Appointment: María Elena Appiah WPtel: [address] [place] [address] FOLLOW UP 03/03/2010 Patient Education: Patient Medication Summary Completed 03/03/2010 Visit Plan: Check Pelvic US now Discusse tacho Sal C vs Hysterectomy 01/17/2010 Appointment: María Elena Appiah WPtel: [address] [place] [address] ACUTE ILLNESS 01/17/2010 Patient Education: Patient Medication Summary Completed 01/17/2010 Visit Plan: Check fasting lab and schedu le Mammogram 2gm Na Diet Trial of Ambien 10mg qhs Fwup pending lab results 12/27/2009 Appointment: María Elena Appiah WPtel: [phone] [id number] US ESTABLISHED PATIENT 12/27/2009 Patient Education: Patient Medication Summary Completed 12/27/2009 Referral: Canelo Overton WPtel: [address] [id number] [place] Referral Initiated Referral: Philipp Flores WPtel: [address] [id number] [place] Referral Appointment Requested Instructions Comment . [...]
--- OUTSIDE RECORDS SUMMARY | 2020-03-13 06:13 | XMS REPORT | CCD ---
Author Author Gale Appiah D.O. Organization [facility] Address [address] [place] [phone] Phone Care Team Providers Care Enterprise Account Manager Name Role Phone María Elena Appiah D.O., PP Unavailable CCM Unavailable Summary Purpose Interface Exchange Insurance Providers Payer name Policy type / Coverage type Covered libertarian ID Effective Begin Date Effective End Date [facility] Commercial Insurance [id number] Unknown Family History Family History data not found Social History Social History Element Codes Description Effective Dates Tobacco history SNOMED CT: [id number] Never smoker 05/22/2011 Allergies, Adverse Reactions, Alerts [...] Fill Instructions Keflex 500 mg capsule RxNorm: 468118 1 Capsule(s) Oral two time s a day 10/07/2019 10/14/2019 Active Premarin 1.25 mg tablet RxNorm: 269332 1 Tablet(s) Oral QD 09/30/1906/25/2020 Active hydrocodone 10 mg-acetaminophen 325 mg tablet RxNorm: 187699 1-2 Tablet(s) Oral three times a day as needed for pain 09/30/2019 09/30/2019 Inactive gabapentin 300 mg capsule RxNorm: 222936 TAKE ONE CAPSU LE BY MOUTH EVERY NIGHT AT BEDTIME 09/19/2019 No Stop Date Active baclofen 10 mg tablet RxNorm: 453677 TAKE ONE TABLET BY MOUTH THREE TIMES A DAY NEEDED 09/19/2019 No Stop Date Active Klor-Con 8 mEq tablet,extended release RxNorm: 480938 T FARRUKH ONE TABLET BY MOUTH TWICE A DAY 1 Tablet(s) Oral two times a day 09/19/2019 10/19/2019 Act darion hydrocodone 10 mg-acetaminophen 325 mg tablet RxNorm: 185915 1-2 Tablet(s) Oral three times a day as needed for pain 09/19/2019 09/29/2019 Inactive duloxetine 60 mg capsule,delayed release RxNorm: 157607 TAKE ONE CAPSULE BY MOUTH DAILY 09/11/2019 No Stop Date Active Lipitor 10 mg tablet RxNorm: 662485 TAKE ONE TABLET BY MOUTH AT BEDTIME 09/11/2019 No Stop Date Active lisinopril 20 mg tablet RxNorm: 719493 TAKE ONE TABLET BY MOUTH DAILY .... THIS REPLACE 10MG TABLETS 09/11/2019 No Stop Date Active triamterene 75 mg-hydrochlorothiazide 50 mg tablet RxNorm: 3 92219 TAKE ONE TABLET BY MOUTH DAILY 09/11/2019 No Stop Date Active allopurinol 300 mg tablet RxNorm: 727915 TAKE ONE TABLET BY LOPEZ TH DAILY 09/11/2019 No Stop Date Active celecoxib 200 mg capsule RxNorm: 083046 TAKE ONE CAPSUL E BY MOUTH TWICE A DAY NEEDED FOR PAIN 09/11/2019 No Stop Date Active clonidine HCl 0.1 mg tablet RxNorm: 365859 TAKE ONE TAB LET BY MOUTH FOUR TIMES A DAY 09/11/2019 No Stop Date Active doxepin 25 mg capsule RxNorm: 4186802 1 Capsule(s) Oral every night at bedtime as needed for sleep 08/21/2019 11/18/2019 Active hydrocodone 10 mg-acetaminophen 325 mg tablet RxNorm: 679573 1-2 Tablet(s) PO TID 08/12/2019 09/29/2019 Inactive as needed for pa in - Previous quantity #240, will start dosing for #180 in April 2011 per Doctor Td. Medrol (Dustin) 4 mg tablets in a dose pack RxNorm: 226696 Tablet(s) Oral As Directed 07/21/2019 09/29/2019 Inactive Premarin 1.25 mg tablet RxNorm: 623612 1 Tablet(s) Oral QD 07/02/20 19 09/29/2019 Inactive hydrocodone 10 mg-acetaminophen 325 mg tablet RxNorm: 065223 1-2 Tablet(s) PO TID 07/01/2019 08/11/2019 Inactive as needed for pa in - Previous quantity #240, will start dosing for #180 in April 2011 per Doctor Td. gabapentin 300 mg capsule RxNorm: 308172 1 Capsule(s) PO QHS 201809/18/2019 Inactive celecoxib 200 mg capsule RxNorm: 861259 1 Capsule(s) Or al two times a day as needed for pain 06/27/2019 06/27/2019 Inactive Singulair 10 mg tablet RxNorm: 594696 TAKE ONE TABLET BY MOUTH JOSÉ Y 06/24/2019 No Stop Date Active furosemide 40 mg tablet RxNorm: 891979 TAKE ONE TABLET BY MOUTH EVERY MORNING NEEDED FOR EDEMA . TAKE WITH POTASSIUM 06/24/2019 No Stop Date Active doxepin 25 mg capsule RxNorm: 2745521 TAKE ONE CAPSULE B Y MOUTH EVERY NIGHT AT BEDTIME NEEDED FOR SLEEP 06/24/2019 08/20/2019 Inactive lisinopril 20 mg tablet RxNorm: 002839 TAKE ONE TABLET BY MOUTH DAILY .... THIS REPLACE 10MG TABLETS 06/24/2019 09/10/2019 Inactive nystatin-triamcinolone 100,000 unit/g-0.1 % topical cream Rx Norm: 9746269 1 Application Topical two times a day 06/12/2019 06/19/2019 Inactive apply BID for 1 week nystatin-triamcinolone 100,000 unit/g-0.1 % topical cream Rx Norm: 2748705 1 Application Topical two times a day 06/12/2019 06/11/2019 Inactive apply BID for 1 week hydrocodone 10 mg-acetaminophen 325 mg tablet RxNorm: 167258 1-2 Tablet(s) PO QID as needed for pain MUST LAST 30 DAYS 05/28/2019 06/26/2019 Inactiv e (Response to an electronic controlled substance refill request - RxReferenceNumber: [id number]) baclofen 20 mg tablet RxNorm: 070611 1 Tablet(s) PO TID as needed for muscle spasm 05/19/2019 05/27/2019 Inactive gabapentin 300 mg capsule RxNorm: 572675 1 Capsule(s) PO QHS 201805/27/2019 Inactive lisinopril 20 mg tablet RxNorm: 864516 1 Tablet(s) PO Q D TAKE ONE TABLET BY MOUTH DAILY, REPLACES 10 MG DOSE 05/19/2019 06/23/2019 Inactive doxepin 25 mg capsule RxNorm: 8152088 TAKE ONE CAPSULE B Y MOUTH EVERY NIGHT AT BEDTIME NEEDED FOR SLEEP 05/16/2019 06/14/2019 Inactive lisinopril 20 mg tablet RxNorm: 678017 TAKE ONE TABLET BY MOUTH DAILY, REPLACES 10 MG DOSE 05/16/2019 05/18/2019 Inactive Singulair 10 mg tablet RxNorm: 399270 TAKE ONE TABLET BY MOUTH JOSÉ Y 05/16/2019 06/14/2019 Inactive gabapentin 300 mg capsule RxNorm: 111071 1 Capsule(s) PO QHS 201805/04/2019 Inactive estropipate 1.5 mg tablet RxNorm: 640602 1 Tablet(s) PO QD 05/05/20 19 05/27/2019 Inactive estropipate 1.5 mg tablet RxNorm: 808499 1 Tablet(s) PO QD 05/05/20 19 05/04/2019 Inactive gabapentin 300 mg capsule RxNorm: 998905 1 Capsule(s) PO QHS 201805/18/2019 Inactive hydrocodone 10 mg-acetaminophen 325 mg tablet RxNorm: 033753 1-2 Tablet(s) PO QID as needed for pain MUST LAST 30 DAYS 04/25/2019 05/24/2019 Inactiv e (Response to an electronic controlled substance refill request - RxReferenceNumber: [id number]) metoprolol tartrate 100 mg tablet RxNorm: 540261 TAKE O NE TABLET BY MOUTH TWICE A DAY 04/24/2019 06/22/2019 Inactive cyclobenzaprine 10 mg tablet RxNorm: 026638 TAKE ONE TA BLET BY MOUTH THREE TIMES A DAY NEEDED FOR MUSCLE SPASMS 04/24/2019 05/18/2019 Inactive Lyrica 75 mg capsule RxNorm: 534356 1 Capsule(s) PO QHS 03/25/2019 Inactive duloxetine 60 mg capsule,delayed release RxNorm: 018192 TAKE ONE CAPSULE BY MOUTH DAILY 03/21/2019 05/19/2019 Inactive triamterene 75 mg-hydrochlorothiazide 50 mg tablet RxNorm: 3 80639 TAKE ONE TABLET BY MOUTH DAILY 03/21/2019 05/19/2019 Inactive Klor-Con 8 mEq tablet,extended release RxNorm: 593960 T FARRUKH ONE TABLET BY MOUTH TWICE A DAY 03/21/2019 09/18/2019 Inactive Lipitor 10 mg tablet RxNorm: 721449 TAKE ONE TABLET BY MOUTH AT BEDTIME 03/21/2019 09/10/2019 Inactive clonidine HCl 0.1 mg tablet RxNorm: 820866 TAKE ONE TAB LET BY MOUTH FOUR TIMES A DAY 03/21/2019 05/19/2019 Inactive allopurinol 300 mg tablet RxNorm: 907693 TAKE ONE TABLET BY LOPEZ TH DAILY 03/21/2019 05/19/2019 Inactive hydrocodone 10 mg-acetaminophen 325 mg tablet RxNorm: 294449 1-2 Tablet(s) PO QID as needed for pain MUST LAST 30 DAYS 02/28/2019 03/29/2019 Inactiv e (Response to an electronic controlled substance refill request [facility] [id number]) furosemide 40 mg tablet RxNorm: 535460 TAKE ONE TABLET BY MOUTH EVERY MORNING NEEDED FOR EDEMA . TAKE WITH POTASSIUM 02/21/2019 03/22/2019 Inactive cyclobenzaprine 10 mg tablet RxNorm: 702554 TAKE ONE TA BLET BY MOUTH THREE TIMES A DAY NEEDED FOR MUSCLE SPASMS 02/21/2019 04/21/2019 Inactive lisinopril 20 mg tablet RxNorm: 562398 TAKE ONE TABLET BY MOUTH DAILY, REPLACES 10 MG DOSE 02/21/2019 05/15/2019 Inactive doxepin 25 mg capsule RxNorm: 2600786 TAKE ONE CAPSULE B Y MOUTH EVERY NIGHT AT BEDTIME NEEDED FOR SLEEP 02/21/2019 05/15/2019 Inactive nystatin 100,000 unit/gram topical cream RxNorm: 126186 APPLY TO AFFECTED AREA(S) TWO TIMES A DAY 02/21/2019 03/22/2019 Inactive estradiol 1 mg tablet RxNorm: 204646 2 Tablet(s) PO QD replaces premarin 01/22/2019 05/04/2019 Inactive lisinopril 20 mg tablet RxNorm: 157509 TAKE ONE TABLET BY MOUTH DAILY, REPLACES 10 MG DOSE 01/20/2019 02/18/2019 Inactive cyclobenzaprine 10 mg tablet RxNorm: 886545 TAKE ONE TA BLET BY MOUTH THREE TIMES A DAY NEEDED FOR MUSCLE SPASMS 01/20/2019 02/18/2019 Inactive metoprolol tartrate 100 mg tablet RxNorm: 176388 TAKE O NE TABLET BY MOUTH TWICE A DAY 01/20/2019 02/18/2019 Inactive cyclobenzaprine 10 mg tablet RxNorm: 453738 TAKE ONE TA BLET BY MOUTH THREE TIMES A DAY NEEDED FOR MUSCLE SPASMS 12/19/2018 01/17/2019 Inactive lisinopril 20 mg tablet RxNorm: 697957 TAKE ONE TABLET BY MOUTH DAILY, REPLACES 10 MG DOSE 12/19/2018 01/17/2019 Inactive duloxetine 60 mg capsule,delayed release RxNorm: 925661 TAKE ONE CAPSULE BY MOUTH DAILY 12/19/2018 01/17/2019 Inactive Lipitor 10 mg tablet RxNorm: 924771 TAKE ONE TABLET BY MOUTH AT BEDTIME 12/19/2018 01/17/2019 Inactive cyclobenzaprine 10 mg tablet RxNorm: 611888 1 Tablet(s) PO TID as needed for muscle spasm 11/19/2018 12/18/2018 Inactive Singulair 10 mg tablet RxNorm: 701261 1 Tablet(s) PO QD 11/19/2018 Inactive lisinopril 20 mg tablet RxNorm: 622058 TAKE ONE TABLET BY MOUTH DAILY, REPLACES 10 MG DOSE 11/15/2018 12/18/2018 Inactive hydrocodone 10 mg-acetaminophen 325 mg tablet RxNorm: 256738 1-2 Tablet(s) PO QID as needed for pain MUST LAST 30 DAYS 11/13/2018 12/12/2018 Inactiv e (Response to an electronic controlled substance refill request - RxReferenceNumber: [id number]) nystatin 100,000 unit/gram topical cream RxNorm: 364497 APPLY TO AFFECTED AREA(S) TWO TIMES A DAY 10/23/2018 11/06/2018 Inactive lisinopril 20 mg tablet RxNorm: 590009 1 Tablet(s) PO QD replac es 10mg dose 10/18/2018 11/14/2018 Inactive hydrocodone 10 mg-acetaminophen 325 mg tablet RxNorm: 265552 1-2 Tablet(s) QID as needed for pain MUST LAST 30 DAYS 10/08/2018 11/06/2018 Inactive (Response to an electronic controlled substance refill request - RxReferenceNumber: [id number]) lisinopril 10 mg tablet RxNorm: 990152 1 Tablet(s) PO QD 10/03/2018 0 01/21/2019 Inactive Celebrex 200 mg capsule RxNorm: 249397 TAKE ONE CAPSULE BY MOUT H TWICE A DAY 09/30/2018 05/04/2019 Inactive cyclobenzaprine 10 mg tablet RxNorm: 106159 TAKE ONE TA BLET BY MOUTH THREE TIMES A DAY NEEDED FOR MUSCLE SPASMS 09/30/2018 11/18/2018 Inactive doxepin 25 mg capsule RxNorm: 1662255 TAKE ONE CAPSULE B Y MOUTH EVERY NIGHT AT BEDTIME NEEDED 09/05/2018 10/16/2018 Inactive omeprazole 40 mg capsule,delayed release RxNorm: 145020 TAKE ONE CAPSULE BY MOUTH DAILY 09/05/2018 01/21/2019 Inactive furosemide 40 mg tablet RxNorm: 841443 TAKE ONE TABLET BY MOUTH EVERY MORNING NEEDED FOR EDEMA . TAKE WITH POTASSIUM 09/05/2018 11/03/2018 Inactive phentermine 37.5 mg tablet RxNorm: 788736 1 Tablet(s) PO QAM 201701/21/2019 Inactive doxepin 25 mg capsule RxNorm: 1217640 1 Capsule(s) PO QH S as needed for sleep TAKE ONE CAPSULE BY MOUTH EVERY NIGHT AT BEDTIME NEEDED 08/27/2018 09/04/2018 Inactive Keflex 500 mg capsule RxNorm: 704862 1 Capsule(s) PO TID 08/09/2018 1 10/19/2017 Inactive Diflucan 100 mg tablet RxNorm: 394360 1 Tablet(s) PO QD 08/09/2018 Inactive Premarin 1.25 mg tablet RxNorm: 698571 2 Tablet(s) PO QD 08/09/2018 0 05/04/2019 Inactive Zofran ODT 4 mg disintegrating tablet RxNorm: 593492 1 Tablet(s) PO Q4H as needed for nausea 08/09/2018 01/21/2019 Inactive metoprolol tartrate 100 mg tablet RxNorm: 820043 TAKE O NE TABLET BY MOUTH TWICE A DAY 2018 10/04/2018 Inactive doxepin 25 mg capsule RxNorm: 8788587 TAKE ONE CAPSULE B Y MOUTH EVERY NIGHT AT BEDTIME NEEDED 2018 08/26/2018 Inactive cyclobenzaprine 10 mg tablet RxNorm: 896712 TAKE ONE TA BLET BY MOUTH THREE TIMES A DAY NEEDED FOR MUSCLE SPASMS 2018 09/29/2018 Inactive hydrocodone 10 mg-acetaminophen 325 mg tablet RxNorm: 155539 1-2 Tablet(s) QID as needed for pain MUST LAST 30 DAYS 07/29/2018 08/27/2018 Inactive (Response to an electronic controlled substance refill request - RxReferenceNumber: [id number]) nystatin 100,000 unit/gram topical powder RxNorm: 173717 Applic ation TOP BID 07/22/2018 08/04/2018 Inactive doxepin 25 mg capsule RxNorm: 2331838 1 Capsule(s) PO QHS as needed 07/22/2018 08/05/2018 Inactive triamterene 75 mg-hydrochlorothiazide 50 mg tablet RxNorm: 3 16058 TAKE ONE TABLET BY MOUTH DAILY 07/05/2018 10/02/2018 Inactive duloxetine 60 mg capsule,delayed release RxNorm: 744602 TAKE ONE CAPSULE BY MOUTH DAILY 07/05/2018 09/02/2018 Inactive Klor-Con 8 mEq tablet,extended release RxNorm: 639008 T FARRUKH ONE TABLET BY MOUTH TWICE A DAY 07/05/2018 10/02/2018 Inactive Lipitor 10 mg tablet RxNorm: 134499 TAKE ONE TABLET BY MOUTH AT BEDTIME 07/05/2018 09/02/2018 Inactive allopurinol 300 mg tablet RxNorm: 613307 TAKE ONE TABLET BY LOPEZ TH DAILY 07/05/2018 10/02/2018 Inactive clonidine HCl 0.1 mg tablet RxNorm: 890400 TAKE ONE TAB LET BY MOUTH FOUR TIMES A DAY 07/05/2018 10/02/2018 Inactive hydrocodone 10 mg-acetaminophen 325 mg tablet RxNorm: 853756 1-2 Tablet(s) QID as needed for pain MUST LAST 30 DAYS 06/28/2018 07/27/2018 Inactive (Response to an electronic controlled substance refill request - RxReferenceNumber: [id number]) MediHoney (calcium alginate-honey) 4" X 5" bandage RxNorm: 1 Application TOP QD 06/17/2018 06/26/2018 Inactive honey-hydrocolloid dressing 4" X 5" RxNorm: 1 Application TOP QD 06/17/2018 07/16/2018 Inactive furosemide 40 mg tablet RxNorm: 200276 TAKE ONE TABLET BY MOUTH EVERY MORNING NEEDED FOR EDEMA . TAKE WITH POTASSIUM 06/10/2018 07/09/2018 Inactive This is a refill request. hydrocodone 10 mg-acetaminophen 325 mg tablet RxNorm: 691956 1-2 Tablet(s) QID as needed for pain MUST LAST 30 DAYS 05/30/2018 06/27/2018 Inactive (Response to an electronic controlled substance refill request - RxReferenceNumber: [id number]) acyclovir 800 mg tablet RxNorm: 676519 1 Tablet(s) PO 5x day 201705/22/2018 Inactive Premarin 1.25 mg tablet RxNorm: 383054 1-2 Tablet(s) PO QD 05/15/20 18 07/13/2018 Inactive cyclobenzaprine 10 mg tablet RxNorm: 596173 1 Tablet(s) PO TID as needed for muscle spasm 05/09/2018 05/08/2018 Inactive Medrol (Dustin) 4 mg tablets in a dose pack RxNorm: 813528 Tablet(s) PO As Directed 05/02/2018 06/16/2018 Inactive hydrocodone 10 mg-acetaminophen 325 mg tablet RxNorm: 773064 1-2 Tablet(s) QID as needed for pain MUST LAST 30 DAYS 04/30/2018 05/29/2018 Inactive (Response to an electronic controlled substance refill request - RxReferenceNumber: [id number]) duloxetine 60 mg capsule,delayed release RxNorm: 524027 TAKE ONE CAPSULE BY MOUTH DAILY 04/16/2018 05/15/2018 Inactive Celebrex 200 mg capsule RxNorm: 112178 TAKE ONE CAPSULE BY MOUT H TWICE A DAY 04/16/2018 06/14/2018 Inactive Singulair 10 mg tablet RxNorm: 448530 TAKE ONE TABLET BY MOUTH JOSÉ Y 04/16/2018 11/19/2018 Inactive Lipitor 10 mg tablet RxNorm: 871972 TAKE ONE TABLET BY MOUTH AT BEDTIME 04/16/2018 05/15/2018 Inactive hydrocodone 10 mg-acetaminophen 325 mg tablet RxNorm: 507813 1-2 Tablet(s) QID as needed for pain MUST LAST 30 DAYS 03/29/2018 04/27/2018 Inactive (Response to an electronic controlled substance refill request - RxReferenceNumber: [id number]) cyclobenzaprine 10 mg tablet RxNorm: 008329 1 Tablet(s) PO TID as needed for muscle spasm 03/18/2018 05/09/2018 Inactive omeprazole 40 mg capsule,delayed release RxNorm: 433992 1 Capsu le(s) PO QD 02/26/2018 08/24/2018 Inactive hydrocodone 10 mg-acetaminophen 325 mg tablet RxNorm: 007411 1-2 Tablet(s) QID as needed for pain MUST LAST 30 DAYS 02/26/2018 03/27/2018 Inactive (Response to an electronic controlled substance refill request - RxReferenceNumber: [id number]) metoprolol tartrate 100 mg tablet RxNorm: 357897 1 Tablet(s) PO BID 02/18/2018 08/05/2018 Inactive Lyrica 75 mg capsule RxNorm: 673493 1 Capsule(s) PO QHS 01/30/2018 Inactive phentermine 37.5 mg tablet RxNorm: 000791 1 Tablet(s) PO QAM 201706/16/2018 Inactive hydrocodone 10 mg-acetaminophen 325 mg tablet RxNorm: 958311 1-2 Tablet(s) QID as needed for pain MUST LAST 30 DAYS 01/29/2018 02/25/2018 Inactive (Response to an electronic controlled substance refill request - RxReferenceNumber: [id number]) Klor-Con 8 mEq tablet,extended release RxNorm: 108343 1 Tablet( s) PO BID 01/14/2018 07/04/2018 Inactive allopurinol 300 mg tablet RxNorm: 206821 1 Tablet(s) PO QD 01/15/2007/04/2018 Inactive Lipitor 10 mg tablet RxNorm: 679536 1 Tablet(s) PO QHS 01/14/201812/2017 Inactive triamterene 75 mg-hydrochlorothiazide 50 mg tablet RxNorm: 3 58721 1 Tablet(s) PO QD 01/14/2018 07/04/2018 Inactive hydrocodone 10 mg-acetaminophen 325 mg tablet RxNorm: 673263 1-2 Tablet(s) QID as needed for pain MUST LAST 30 DAYS 12/27/2017 01/25/2018 Inactive (Response to an electronic controlled substance refill request - RxReferenceNumber: [id number]) Onglyza 5 mg tablet RxNorm: 391783 1 Tablet(s) PO QD 12/18/201701/29 Inactive metformin 500 mg tablet RxNorm: 903728 1 Tablet(s) PO BID 12/11/2017 12/10/2017 Inactive metformin 500 mg tablet RxNorm: 606231 1 Tablet(s) PO BID 12/11/2017 12/17/2017 Inactive furosemide 40 mg tablet RxNorm: 124780 1 Tablet(s) PO Q AM prn edema--take with potassium 12/11/2017 06/08/2018 Inactive cyclobenzaprine 10 mg tablet RxNorm: 623144 1 Tablet(s) PO TID as needed for muscle spasm 12/11/2017 03/18/2018 Inactive hydrocodone 10 mg-acetaminophen 325 mg tablet RxNorm: 197904 1-2 Tablet(s) QID as needed for pain MUST LAST 30 DAYS 10/23/2017 11/21/2017 Inactive (Response to an electronic controlled substance refill request - RxReferenceNumber: [id number]) Lipitor 10 mg tablet RxNorm: 094938 1 Tablet(s) PO QHS 10/16/201703/2018 Inactive cyclobenzaprine 10 mg tablet RxNorm: 276285 1 Tablet(s) PO TID as needed for muscle spasm 10/09/2017 12/10/2017 Inactive hydroxyzine HCl 25 mg tablet RxNorm: 556191 1 Tablet(s) PO BID as needed for anxiety 09/20/2017 01/29/2018 Inactive Effexor XR 75 mg capsule,extended release RxNorm: 338490 1 Caps ule(s) PO QD 09/20/2017 01/29/2018 Inactive metoprolol tartrate 100 mg tablet RxNorm: 423593 1 Tablet(s) PO BID 08/20/2017 02/18/2018 Inactive baclofen 20 mg tablet RxNorm: 277712 1 Tablet(s) PO TID as needed for muscle spasm 08/20/2017 01/21/2019 Inactive clonidine HCl 0.1 mg tablet RxNorm: 084991 1 Tablet(s) PO QID 08/2005/16/2018 Inactive Seroquel 25 mg tablet RxNorm: 382169 1 Tablet(s) PO QHS 08/17/2017 Inactive Seroquel 25 mg tablet RxNorm: 242961 1 Tablet(s) PO QHS 08/17/2017 Inactive Diflucan 100 mg tablet RxNorm: 234765 TAKE ONE TABLET BY MOUTH JOSÉ Y 07/25/2017 08/07/2017 Inactive hydrocodone 10 mg-acetaminophen 325 mg tablet RxNorm: 855745 1-2 Tablet(s) QID as needed for pain MUST LAST 30 DAYS 07/19/2017 08/17/2017 Inactive (Response to an electronic controlled substance refill request - RxReferenceNumber: [id number]) clindamycin 300 mg capsule RxNorm: 043696 1 Capsule(s) PO TID 07/1907/28/2017 Inactive clotrimazole-betamethasone 1 %-0.05 % topical cream RxNorm: 563919 Application TOP BID to elbow rash 07/19/2017 06/16/2018 Inactive Singulair 10 mg tablet RxNorm: 289039 Tablet(s) TAKE ONE TABLET BY MOUTH DAILY 07/18/2017 04/13/2018 Inactive triamterene 75 mg-hydrochlorothiazide 50 mg tablet RxNorm: 3 72039 1 Tablet(s) PO QD 07/18/2017 01/14/2018 Inactive Celebrex 200 mg capsule RxNorm: 520094 Capsule(s) TAKE ONE CAPSULE BY MOUTH TWICE A DAY 07/18/2017 10/15/2017 Inactive hydrocodone 10 mg-acetaminophen 325 mg tablet RxNorm: 545986 1-2 Tablet(s) QID as needed for pain MUST LAST 30 DAYS 06/19/2017 07/18/2017 Inactive (Response to an electronic controlled substance refill request - RxReferenceNumber: [id number]) hydrocodone 10 mg-acetaminophen 325 mg tablet RxNorm: 385097 1-2 Tablet(s) QID as needed for pain MUST LAST 30 DAYS 06/19/2017 06/18/2017 Inactive (Response to an electronic controlled substance refill request - RxReferenceNumber: [id number]) baclofen 20 mg tablet RxNorm: 448246 1 Tablet(s) PO TID as needed for muscle spasm 06/18/2017 08/20/2017 Inactive Medrol (Dustin) 4 mg tablets in a dose pack RxNorm: 954586 Tablet(s) PO As Directed 06/05/2017 07/18/2017 Inactive omeprazole 40 mg capsule,delayed release RxNorm: 568791 1 Capsu le(s) PO QD 04/20/2017 10/16/2017 Inactive Premarin 1.25 mg tablet RxNorm: 367841 1-2 Tablet(s) PO QD 04/11/20 17 05/15/2018 Inactive duloxetine 60 mg capsule,delayed release RxNorm: 621989 1 Capsu le(s) PO QD 04/11/2017 09/19/2017 Inactive furosemide 40 mg tablet RxNorm: 620298 1 Tablet(s) PO Q AM prn edema--take with potassium 04/11/2017 12/11/2017 Inactive Klor-Con 8 mEq tablet,extended release RxNorm: 416667 1 Tablet( s) PO BID 04/11/2017 01/14/2018 Inactive Lipitor 10 mg tablet RxNorm: 845214 1 Tablet(s) PO QHS 04/11/201702/2018 Inactive amlodipine 5 mg-benazepril 20 mg capsule RxNorm: 990222 1 Capsu le(s) PO QD 04/11/2017 01/29/2018 Inactive allopurinol 300 mg tablet RxNorm: 107604 1 Tablet(s) PO QD 04/11/20 17 01/14/2018 Inactive clonidine HCl 0.1 mg tablet RxNorm: 485760 1 Tablet(s) PO QID 04/0508/19/2017 Inactive baclofen 20 mg tablet RxNorm: 298750 1 Tablet(s) PO TID as needed for muscle spasm 04/02/2017 06/18/2017 Inactive Premarin 1.25 mg tablet RxNorm: 784538 1-2 Tablet(s) PO QD 03/20/20 17 04/10/2017 Inactive hydrocodone 10 mg-acetaminophen 325 mg tablet RxNorm: 577622 1-2 Tablet(s) QID as needed for pain MUST LAST 30 DAYS 03/14/2017 01/21/2019 Inactive (Response to an electronic controlled substance refill request - RxReferenceNumber: [id number]) metoprolol tartrate 100 mg tablet RxNorm: 992681 1 Tablet(s) PO BID 02/12/2017 08/20/2017 Inactive hydrocodone 10 mg-acetaminophen 325 mg tablet RxNorm: 342557 1-2 Tablet(s) QID as needed for pain MUST LAST 30 DAYS 02/08/2017 03/09/2017 Inactive (Response to an electronic controlled substance refill request - RxReferenceNumber: [id number]) metoprolol tartrate 100 mg tablet RxNorm: 965864 TAKE O NE TABLET BY MOUTH TWICE A DAY 01/11/2017 02/12/2017 Inactive metoprolol tartrate 100 mg tablet RxNorm: 200328 1 Tablet(s) PO BID 12/18/2016 12/17/2016 Inactive metoprolol tartrate 100 mg tablet RxNorm: 469018 1 Tablet(s) PO BID 12/18/2016 01/10/2017 Inactive furosemide 40 mg tablet RxNorm: 493633 1 Tablet(s) PO Q AM prn edema--take with potassium 12/13/2016 02/10/2017 Inactive amitriptyline 100 mg tablet RxNorm: 117767 1 Tablet(s) PO QHS 11/2812/12/2016 Inactive baclofen 20 mg tablet RxNorm: 079078 1 Tablet(s) PO TID as needed for muscle spasm 11/14/2016 04/01/2017 Inactive triamterene 75 mg-hydrochlorothiazide 50 mg tablet RxNorm: 3 12588 1 Tablet(s) PO QD 11/14/2016 11/13/2016 Inactive metolazone 2.5 mg tablet RxNorm: 596824 TAKE ONE TABLET BY MOUTH DAILY NEEDED FOR EDEMA 11/14/2016 12/12/2016 Inactive triamterene 75 mg-hydrochlorothiazide 50 mg tablet RxNorm: 3 04484 1 Tablet(s) PO QD 11/14/2016 07/18/2017 Inactive amitriptyline 50 mg tablet RxNorm: 864528 TAKE ONE TABL ET BY MOUTH AT BEDTIME NEEDED FOR SLEEP 11/14/2016 11/27/2016 Inactive Cymbalta 60 mg capsule,delayed release RxNorm: 574995 1 Capsule (s) PO QHS 11/14/2016 12/12/2016 Inactive clonidine HCl 0.1 mg tablet RxNorm: 341714 1 Tablet(s) PO QID 11/1304/04/2017 Inactive amitriptyline 50 mg tablet RxNorm: 592955 1 Tablet(s) P O QHS as needed for sleep 11/01/2016 11/27/2016 Inactive duloxetine 60 mg capsule,delayed release RxNorm: 537200 TAKE ONE CAPSULE BY MOUTH DAILY 10/20/2016 01/17/2017 Inactive allopurinol 300 mg tablet RxNorm: 756566 TAKE ONE TABLET BY LOPEZ TH DAILY 10/20/2016 01/16/2017 Inactive Lyrica 75 mg capsule RxNorm: 882273 TAKE ONE CAPSULE BY MOUTH EVERY NIGHT AT BEDTIME 10/20/2016 12/10/2016 Inactive Klor-Con 8 mEq tablet,extended release RxNorm: 619492 T FARRUKH ONE TABLET BY MOUTH TWICE A DAY 10/20/2016 01/17/2017 Inactive Celebrex 200 mg capsule RxNorm: 544488 TAKE ONE CAPSULE BY MOUT H TWICE A DAY 10/20/2016 07/18/2017 Inactive Bystolic 10 mg tablet RxNorm: 859238 TAKE ONE TABLET BY MOUTH EVERY NIGHT AT BEDTIME 10/20/2016 12/17/2016 Inactive amlodipine 5 mg-benazepril 20 mg capsule RxNorm: 977126 TAKE ONE CAPSULE BY MOUTH EVERY NIGHT AT BEDTIME -- TO REPLACE AMLODOPINE 10/20/20162016 Inactive Lipitor 10 mg tablet RxNorm: 871329 TAKE ONE TABLET BY MOUTH EVERY NIGHT AT BEDTIME 10/20/2016 01/17/2017 Inactive alprazolam 0.5 mg tablet RxNorm: 229263 3 Tablet(s) PO QHS as needed for sleep/anxiety 09/20/2016 10/31/2016 Inactive Tamiflu 75 mg capsule RxNorm: 704390 1 Capsule(s) PO QD 09/19/2016 Inactive Lyrica 75 mg capsule RxNorm: 475909 1 Capsule(s) PO QHS 09/19/2016 Inactive prednisone 20 mg tablet RxNorm: 294499 1 Tablet(s) PO QD 08/10/2016 1 10/17/2015 Inactive doxycycline hyclate 100 mg capsule RxNorm: 5978253 1 Capsule(s) PO BID 08/10/2016 08/19/2016 Inactive Medrol (Dustin) 4 mg tablets in a dose pack RxNorm: 300762 Tablet(s) PO As Directed 07/31/2016 08/22/2016 Inactive Singulair 10 mg tablet RxNorm: 120170 TAKE ONE TABLET BY MOUTH JOSÉ Y 07/27/2016 07/18/2017 Inactive hydrocodone 10 mg-acetaminophen 325 mg tablet RxNorm: 705429 1-2 Tablet(s) QID as needed for pain MUST LAST 30 DAYS 07/26/2016 08/24/2016 Inactive (Response to an electronic controlled substance refill request - RxReferenceNumber: [id number]) alprazolam 0.5 mg tablet RxNorm: 492668 3 Tablet(s) PO QHS as needed for anxiety or sleep 07/26/2016 09/20/2016 Inactive clindamycin 300 mg capsule RxNorm: 841092 1 Capsule(s) PO TID 07/2007/29/2016 Inactive Diflucan 100 mg tablet RxNorm: 432883 1 Tablet(s) PO QD 07/20/2016 Inactive Levaquin 500 mg tablet RxNorm: 821906 1 Tablet(s) PO QD 07/17/2016 Inactive Levaquin 500 mg tablet RxNorm: 371665 1 Tablet(s) PO QD 07/10/2016 Inactive Levaquin 500 mg tablet RxNorm: 494631 1 Tablet(s) PO QD 07/10/2016 Inactive mupirocin 2 % topical ointment RxNorm: 393989 TOP Apply topically to affected areas twice daily 07/06/2016 09/18/2016 Inactive Singulair 10 mg tablet RxNorm: 136129 TAKE ONE TABLET BY MOUTH JOSÉ Y 06/21/2016 01/21/2019 Inactive alprazolam 0.5 mg tablet RxNorm: 559822 TAKE THREE TABL ETS BY MOUTH AT BEDTIME NEEDED FOR SLEEP OR STRESS 05/22/2016 06/20/2016 Inactive triamterene 75 mg-hydrochlorothiazide 50 mg tablet RxNorm: 3 41937 1 Tablet(s) PO QD 04/26/2016 10/21/2016 Inactive Premarin 1.25 mg tablet RxNorm: 317992 1-2 Tablet(s) PO QD 04/26/20 16 03/20/2017 Inactive Klor-Con 8 mEq tablet,extended release RxNorm: 246961 1 Tablet( s) PO BID 04/26/2016 10/19/2016 Inactive Celebrex 200 mg capsule RxNorm: 187445 1 Capsule(s) PO BID TAKE ONE CAPSULE BY MOUTH EVERY DAY 04/26/2016 10/19/2016 Inactive Lipitor 10 mg tablet RxNorm: 415073 1 Tablet(s) PO QHS 04/26/201605/2017 Inactive allopurinol 300 mg tablet RxNorm: 428833 1 Tablet(s) PO QD TAKE ONE TABLET BY MOUTH EVERY DAY 04/26/2016 10/19/2016 Inactive amlodipine 5 mg-benazepril 20 mg capsule RxNorm: 160748 1 Capsule(s) PO QHS replaces amlodopine 04/26/2016 10/19/2016 Inactive duloxetine 60 mg capsule,delayed release RxNorm: 518031 1 Capsu le(s) PO QD 04/26/2016 10/19/2016 Inactive Bystolic 10 mg tablet RxNorm: 820918 1 Tablet(s) PO QHS 04/26/2016 Inactive Singulair 10 mg tablet RxNorm: 540222 1 Tablet(s) PO QD TAKE ONE TABLET BY MOUTH DAILY 04/26/2016 06/20/2016 Inactive clonidine HCl 0.1 mg tablet RxNorm: 024130 1 Tablet(s) PO QID 04/2610/22/2016 Inactive hydrocodone 10 mg-acetaminophen 325 mg tablet RxNorm: 054230 1-2 Tablet(s) QID as needed for pain TAKE ONE TO TWO TABLETS BY MOUTH FOUR TIMES A DAY . MUST LAST 30 DAYS 03/31/2016 04/29/2016 Inactive (Response to an electronic controlled substance refill request - RxReferenceNumber: [id number]) Klor-Con 8 mEq tablet,extended release RxNorm: 588144 T FARRUKH ONE TABLET BY MOUTH TWICE A DAY 03/24/2016 09/29/2019 Inactive prednisone 20 mg tablet RxNorm: 233577 1 Tablet(s) PO QD 03/09/2016 0 03/08/2016 Inactive prednisone 20 mg tablet RxNorm: 952232 1 Tablet(s) PO QD 03/09/2016 0 03/13/2016 Inactive alprazolam 0.5 mg tablet RxNorm: 551955 3 Tablet(s) PO QHS as needed for sleep/stress 03/02/2016 01/21/2019 Inactive mupirocin 2 % topical ointment RxNorm: 817290 TOP twice daily to affected areas of face and neck 02/21/2016 04/25/2016 Inactive clonidine HCl 0.1 mg tablet RxNorm: 886964 TAKE ONE TAB LET BY MOUTH FOUR TIMES A DAY 02/15/2016 09/29/2019 Inactive clonidine HCl 0.1 mg tablet RxNorm: 312108 1 Tablet(s) PO QID 02/1404/25/2016 Inactive Premarin 1.25 mg tablet RxNorm: 891280 1-2 Tablet(s) PO QD 02/15/20 16 03/15/2016 Inactive Klor-Con 8 mEq tablet,extended release RxNorm: 889708 T FARRUKH ONE TABLET BY MOUTH TWICE A DAY 02/15/2016 03/15/2016 Inactive potassium chloride ER 20 mEq tablet,extended release(part/cr yst) RxNorm: 947347 2 Tablet(s) PO BID 02/15/2016 03/15/2016 Inactive Macrobid 100 mg capsule RxNorm: 112122 1 Capsule(s) PO BID 01/24/20 16 01/30/2016 Inactive prednisone 20 mg tablet RxNorm: 657987 Take 3tabs PO QD x 2 days, then 2 tabs PO QD x 2 days, then 1 tab PO QD x 2 days, then 1/2 tab PO QDy x 2 days 12/23/2015 04/25/2016 Inactive Klor-Con 8 mEq tablet,extended release RxNorm: 626572 T FARRUKH ONE TABLET BY MOUTH TWICE A DAY 12/20/2015 02/14/2016 Inactive alprazolam 1 mg tablet RxNorm: 050928 1 1/2 Tablet(s) PO QHS 201501/23/2016 Inactive nystatin 100,000 unit/gram topical cream RxNorm: 456974 APPLY TO AFFECTED AREA(S) TWO TIMES A DAY 11/30/2015 12/14/2015 Inactive Singulair 10 mg tablet RxNorm: 709446 TAKE ONE TABLET BY MOUTH JOSÉ Y 11/18/2015 04/25/2016 Inactive allopurinol 300 mg tablet RxNorm: 087107 1 Tablet(s) PO QD TAKE ONE TABLET BY MOUTH EVERY DAY 10/26/2015 04/22/2016 Inactive Singulair 10 mg tablet RxNorm: 713955 TAKE ONE TABLET BY MOUTH JOSÉ Y 10/26/2015 11/17/2015 Inactive duloxetine 60 mg capsule,delayed release RxNorm: 552616 1 Capsu le(s) PO QD 10/26/2015 04/22/2016 Inactive triamterene 75 mg-hydrochlorothiazide 50 mg tablet RxNorm: 3 91253 1 Tablet(s) PO QD 10/26/2015 11/14/2016 Inactive potassium chloride ER 20 mEq tablet,extended release(part/cr yst) RxNorm: 865538 2 Tablet(s) PO BID 10/26/2015 02/14/2016 Inactive Lipitor 10 mg tablet RxNorm: 962071 1 Tablet(s) PO QHS 10/26/2015 Inactive amlodipine 5 mg-benazepril 20 mg capsule RxNorm: 214616 1 Capsule(s) PO QHS replaces amlodopine 10/26/2015 04/22/2016 Inactive Bystolic 10 mg tablet RxNorm: 329531 1 Tablet(s) PO QHS 10/26/2015 Inactive amlodipine 5 mg-benazepril 20 mg capsule RxNorm: 571007 1 Capsule(s) PO QHS replaces amlodopine 10/06/2015 10/25/2015 Inactive amlodipine 5 mg tablet RxNorm: 782311 1 Tablet(s) PO QHS 09/30/2015 0 04/25/2016 Inactive metolazone 2.5 mg tablet RxNorm: 476064 TAKE ONE TABLET BY MOUTH DAILY NEEDED FOR EDEMA 09/30/2015 01/21/2019 Inactive duloxetine 60 mg capsule,delayed release RxNorm: 512453 1 Capsu le(s) PO QD 09/30/2015 10/25/2015 Inactive cephalexin 500 mg capsule RxNorm: 789455 1 Capsule(s) PO BID 201509/23/2015 Inactive mupirocin 2 % topical ointment RxNorm: 052339 TOP twice daily to affected areas of face and neck 09/14/2015 02/20/2016 Inactive baclofen 20 mg tablet RxNorm: 913019 1 Tablet(s) PO TID as needed for muscle spasm 09/01/2015 11/14/2016 Inactive clonidine HCl 0.1 mg tablet RxNorm: 314600 1 Tablet(s) PO QID 09/0102/14/2016 Inactive alprazolam 1 mg tablet RxNorm: 583766 1 1/2 Tablet(s) PO QHS 201409/09/2015 Inactive baclofen 20 mg tablet RxNorm: 157242 1 Tablet(s) PO TID as needed for muscle spasm 07/23/2015 09/01/2015 Inactive omeprazole 40 mg capsule,delayed release RxNorm: 559494 1 Capsu le(s) PO QD 07/23/2015 04/25/2016 Inactive alprazolam 1 mg tablet RxNorm: 913303 1 1/2 Tablet(s) PO QHS 201408/10/2015 Inactive Bystolic 10 mg tablet RxNorm: 278309 1 Tablet(s) PO BID 06/24/2015 Inactive allopurinol 300 mg tablet RxNorm: 006770 1 Tablet(s) PO QD TAKE ONE TABLET BY MOUTH EVERY DAY 06/23/2015 10/20/2015 Inactive alprazolam 1 mg tablet RxNorm: 086506 1 1/2 Tablet(s) PO QHS 201407/06/2015 Inactive clonidine HCl 0.1 mg tablet RxNorm: 565321 1 Tablet(s) PO QID 06/0209/01/2015 Inactive clonidine HCl 0.1 mg tablet RxNorm: 341509 1 Tablet(s) PO QID 06/0206/01/2015 Inactive Cymbalta 60 mg capsule,delayed release RxNorm: 915280 1 Capsule (s) PO QHS 06/02/2015 08/30/2015 Inactive Cymbalta 60 mg capsule,delayed release RxNorm: 040249 1 Capsule (s) PO QHS 06/02/2015 06/01/2015 Inactive clonidine HCl 0.1 mg tablet RxNorm: 163526 1 Tablet(s) PO TID 05/3106/01/2015 Inactive replaces 0.2mg dose metolazone 2.5 mg tablet RxNorm: 516379 TAKE ONE TABLET BY MOUTH DAILY NEEDED FOR EDEMA 05/21/2015 06/19/2015 Inactive Singulair 10 mg tablet RxNorm: 879829 TAKE ONE TABLET BY MOUTH JOSÉ Y 05/21/2015 10/17/2015 Inactive Cymbalta 30 mg capsule,delayed release RxNorm: 065441 1 Capsule (s) PO QHS 05/20/2015 11/14/2016 Inactive betamethasone valerate 0.1 % topical cream RxNorm: 246717 Appli cation TOP BID 05/10/2015 04/25/2016 Inactive Bactroban 2 % topical ointment RxNorm: 078966 Application TOP BID 0 05/10/2015 06/20/2015 Inactive baclofen 20 mg tablet RxNorm: 583305 1 Tablet(s) PO TID as needed 0 04/26/2015 07/23/2015 Inactive Lipitor 10 mg tablet RxNorm: 395253 1 Tablet(s) PO QHS 04/26/201508/2016 Inactive clonidine HCl 0.1 mg tablet RxNorm: 015076 1 Tablet(s) PO TID 04/2605/30/2015 Inactive replaces 0.2mg dose Klor-Con 8 mEq tablet,extended release RxNorm: 063175 1 Tablet( s) PO BID 04/26/2015 04/25/2016 Inactive metolazone 2.5 mg tablet RxNorm: 468430 1 Tablet(s) PO QD as ne eded for edema 04/26/2015 04/25/2015 Inactive triamterene 75 mg-hydrochlorothiazide 50 mg tablet RxNorm: 3 56360 1 Tablet(s) PO QD 04/26/2015 10/22/2015 Inactive Premarin 1.25 mg tablet RxNorm: 872075 1-2 Tablet(s) PO QD 04/26/2010/22/2015 Inactive Bystolic 10 mg tablet RxNorm: 005318 1 Tablet(s) PO QAM TAKE ONE TABLET BY MOUTH EVERY MORNING 04/23/2015 06/23/2015 Inactive clonidine HCl 0.1 mg tablet RxNorm: 153192 1 Tablet(s) PO TID 03/2304/25/2015 Inactive replaces 0.2mg dose nystatin 100,000 unit/gram topical cream RxNorm: 434221 Applica tion TOP BID 03/23/2015 06/20/2015 Inactive baclofen 20 mg tablet RxNorm: 745369 1 Tablet(s) PO TID as needed 0 03/23/2015 04/25/2015 Inactive Premarin 1.25 mg tablet RxNorm: 831515 1-2 Tablet(s) PO QD 03/23/2004/25/2015 Inactive Klor-Con 8 mEq tablet,extended release RxNorm: 167407 1 Tablet( s) PO BID 03/23/2015 04/25/2015 Inactive cefdinir 300 mg capsule RxNorm: 889930 2 Capsule(s) PO QD 03/16/2015 03/25/2015 Inactive baclofen 20 mg tablet RxNorm: 043052 1 Tablet(s) PO TID as needed 0 03/02/2015 03/22/2015 Inactive allopurinol 300 mg tablet RxNorm: 537558 1 Tablet(s) PO QD TAKE ONE TABLET BY MOUTH EVERY DAY 02/22/2015 05/22/2015 Inactive Klor-Con M20 mEq tablet,extended release RxNorm: 614518 2 Tablet(s) PO BID to use with lasix 02/22/2015 06/20/2015 Inactive clonidine HCl 0.1 mg tablet RxNorm: 106916 1 Tablet(s) PO TID 02/1903/22/2015 Inactive replaces 0.2mg dose Lipitor 10 mg tablet RxNorm: 732779 1 Tablet(s) PO QHS 01/20/201506/2015 Inactive Lipitor 10 mg tablet RxNorm: 422140 1 Tablet(s) PO QHS 01/20/2015 Inactive Singulair 10 mg tablet RxNorm: 415584 1 Tablet(s) PO QD TAKE ONE TABLET BY MOUTH EVERY DAY 11/20/2014 05/18/2015 Inactive Lipitor 10 mg tablet RxNorm: 770748 1 Tablet(s) PO QHS 11/20/201408/2015 Inactive allopurinol 300 mg tablet RxNorm: 666681 1 Tablet(s) PO QD TAKE ONE TABLET BY MOUTH EVERY DAY 11/20/2014 02/16/2015 Inactive Bystolic 10 mg tablet RxNorm: 068954 1 Tablet(s) PO QAM TAKE ONE TABLET BY MOUTH EVERY MORNING 11/20/2014 04/22/2015 Inactive Klor-Con 8 mEq tablet,extended release RxNorm: 774541 1 Tablet( s) PO BID 11/20/2014 02/17/2015 Inactive baclofen 20 mg tablet RxNorm: 919387 1 Tablet(s) PO TID as needed 0 11/20/2014 01/21/2019 Inactive baclofen 20 mg tablet RxNorm: 115046 1 Tablet(s) PO TID as needed 0 10/27/2014 11/19/2014 Inactive baclofen 20 mg tablet RxNorm: 994310 1 Tablet(s) PO TID as needed 0 10/26/2014 03/01/2015 Inactive allopurinol 300 mg tablet RxNorm: 336105 1 Tablet(s) PO QD TAKE ONE TABLET BY MOUTH EVERY DAY 10/26/2014 11/20/2014 Inactive Bystolic 10 mg tablet RxNorm: 067411 1 Tablet(s) PO QAM TAKE ONE TABLET BY MOUTH EVERY MORNING 10/26/2014 11/20/2014 Inactive clonidine HCl 0.1 mg tablet RxNorm: 197507 1 Tablet(s) PO TID 09/2805/27/2019 Inactive replaces 0.2mg dose clonidine HCl 0.1 mg tablet RxNorm: 954222 1 Tablet(s) PO TID 09/2802/18/2015 Inactive replaces 0.2mg dose baclofen 20 mg tablet RxNorm: 817690 1 Tablet(s) PO TID as needed 1 11/01/2013 08/30/2014 Inactive Lipitor 10 mg tablet RxNorm: 684515 1 Tablet(s) PO QHS 08/31/2014 Inactive baclofen 20 mg tablet RxNorm: 642164 1 Tablet(s) PO TID as needed 1 11/01/2013 10/26/2014 Inactive triamterene 75 mg-hydrochlorothiazide 50 mg tablet RxNorm: 3 39860 1 Tablet(s) PO QD 08/31/2014 02/26/2015 Inactive Klor-Con 8 mEq tablet,extended release RxNorm: 232477 1 Tablet( s) PO BID 08/31/2014 11/20/2014 Inactive baclofen 20 mg tablet RxNorm: 043311 1 Tablet(s) PO TID as needed 1 09/30/2013 10/25/2014 Inactive baclofen 20 mg tablet RxNorm: 880764 1 Tablet(s) PO TID as needed 1 09/30/2013 08/31/2014 Inactive omeprazole 40 mg capsule,delayed release RxNorm: 143009 1 Capsu le(s) PO QD 07/21/2014 07/23/2015 Inactive Flonase 50 mcg/actuation nasal spray,suspension RxNorm: 8963 23 1 [place] NASAL BID 07/15/2014 04/09/2017 Inactive hydrocodone 10 mg-acetaminophen 325 mg tablet RxNorm: 322898 1-2 Tablet(s) QID as needed for pain TAKE ONE TO TWO TABLETS BY MOUTH FOUR TIMES A DAY . MUST LAST 30 DAYS 06/30/2014 07/27/2014 Inactive (Response to an electronic controlled substance refill request - RxReferenceNumber: [id number]) baclofen 20 mg tablet RxNorm: 624781 1 Tablet(s) PO TID as needed 1 07/31/2014 Inactive Singulair 10 mg tablet RxNorm: 205546 1 Tablet(s) PO QD TAKE ONE TABLET BY MOUTH EVERY DAY 05/25/2014 11/20/2014 Inactive Bystolic 10 mg tablet RxNorm: 305791 TAKE ONE TABLET BY MOUTH E VERY MORNING 05/25/2014 09/21/2014 Inactive allopurinol 300 mg tablet RxNorm: 821284 1 Tablet(s) PO QD TAKE ONE TABLET BY MOUTH EVERY DAY 05/25/2014 10/21/2014 Inactive baclofen 20 mg tablet RxNorm: 290681 1 Tablet(s) PO TID as needed 0 05/25/2014 06/29/2014 Inactive allopurinol 300 mg tablet RxNorm: 144097 TAKE ONE TABLET BY LOPEZ TH EVERY DAY 05/25/2014 09/21/2014 Inactive Singulair 10 mg tablet RxNorm: 551143 1 Tablet(s) PO QD TAKE ONE TABLET BY MOUTH EVERY DAY 05/25/2014 05/24/2014 Inactive Bystolic 10 mg tablet RxNorm: 366539 1 Tablet(s) PO QAM TAKE ONE TABLET BY MOUTH EVERY MORNING 05/25/2014 10/21/2014 Inactive metolazone 2.5 mg tablet RxNorm: 980809 1 Tablet(s) PO QD as ne eded for edema 05/18/2014 04/25/2015 Inactive Lasix 40 mg tablet RxNorm: 021293 1 Tablet(s) PO QAM s hould take potassium supplementation with this medication 05/14/2014 05/17/2014 Inactive hydrocodone 10 mg-acetaminophen 325 mg tablet RxNorm: 576853 1-2 Tablet(s) QID as needed for pain TAKE ONE TO TWO TABLETS BY MOUTH FOUR TIMES A DAY . MUST LAST 30 DAYS 05/07/2014 06/05/2014 Inactive (Response to an electronic controlled substance refill request - RxReferenceNumber: [id number]) alprazolam 0.5 mg tablet RxNorm: 002600 TAKE ONE TABLET BY MOUTH TWICE A DAY , MUST LAST 30 DAYS 05/07/2014 05/22/2016 Inactive (Response to a n electronic controlled substance refill request - RxReferenceNumber: [id number]) diclofenac sodium 75 mg tablet,delayed release RxNorm: 08055 6 1 Tablet(s) PO BID for pain 04/24/2014 07/20/2014 Inactive Celebrex 200 mg capsule RxNorm: 601732 TAKE ONE CAPSULE BY MOUT H EVERY DAY 04/24/2014 07/20/2014 Inactive alprazolam 0.5 mg tablet RxNorm: 001250 TAKE ONE TABLET BY MOUTH TWICE A DAY , MUST LAST 30 DAYS 03/24/2014 04/22/2014 Inactive (Response to a n electronic controlled substance refill request - RxReferenceNumber: [id number]) diclofenac sodium 75 mg tablet,delayed release RxNorm: 37875 6 1 Tablet(s) PO BID for pain 03/24/2014 04/24/2014 Inactive clonidine HCl 0.1 mg tablet RxNorm: 911345 1 Tablet(s) PO TID 03/2409/28/2014 Inactive replaces 0.2mg dose Klor-Con 8 mEq tablet,extended release RxNorm: 420971 1 Tablet( s) PO BID 02/26/2014 08/31/2014 Inactive diclofenac sodium 75 mg tablet,delayed release RxNorm: 16531 6 1 Tablet(s) PO BID for pain 02/25/2014 03/24/2014 Inactive hydrocodone 10 mg-acetaminophen 325 mg tablet RxNorm: 246005 1-2 Tablet(s) QID as needed for pain TAKE ONE TO TWO TABLETS BY MOUTH FOUR TIMES A DAY . MUST LAST 30 DAYS 02/25/2014 03/26/2014 Inactive (Response to an electronic controlled substance refill request - RxReferenceNumber: [id number]) alprazolam 0.5 mg tablet RxNorm: 759937 Tablet(s) PO BI D as needed for anxiety TAKE ONE TABLET BY MOUTH TWICE A DAY , MUST LAST 30 DAYS 02/25/2014 Inactive (Response to an electronic controlled [place] bstance refill request - RxReferenceNumber: [id number]) [AttnRPh: Saving apply/adjudicate RxGRP:SG20 RxBIN:[id number] RxPCN: ID#:[id number]] alprazolam 0.5 mg tablet RxNorm: 697719 Tablet(s) TAKE ONE TABLET BY MOUTH TWICE A DAY , MUST LAST 30 DAYS 01/27/2014 02/24/2014 Inactive (Respo nse to an electronic controlled substance refill request - RxReferenceNumber: [id number]) [AttnRPh: Saving apply/adjudicate RxGRP:SG20 RxBIN:[id number] RxPCN: ID#:[id number]] hydrocodone 10 mg-acetaminophen 325 mg tablet RxNorm: 978614 1-2 Tablet(s) QID as needed for pain TAKE ONE TO TWO TABLETS BY MOUTH FOUR TIMES A DAY . MUST LAST 30 DAYS 01/27/2014 02/24/2014 Inactive (Response to an electronic controlled substance refill request - RxReferenceNumber: [id number]) alprazolam 0.5 mg tablet RxNorm: 157965 TAKE ONE TABLET BY MOUTH TWICE A DAY , MUST LAST 30 DAYS 01/27/2014 01/26/2014 Inactive (Response to a n electronic controlled substance refill request - RxReferenceNumber: [id number]) Premarin 1.25 mg tablet RxNorm: 249126 1-2 Tablet(s) PO QD 01/28/20 14 07/25/2014 Inactive alprazolam 0.5 mg tablet RxNorm: 377448 TAKE ONE TABLET BY MOUTH TWICE A DAY , MUST LAST 30 DAYS 01/27/2014 01/27/2014 Inactive (Response to a n electronic controlled substance refill request - RxReferenceNumber: [id number]) hydrocodone 10 mg-acetaminophen 325 mg tablet RxNorm: 972911 TAKE ONE TO TWO TABLETS BY MOUTH FOUR TIMES A DAY . MUST LAST 30 DAYS 01/27/20142013 Inactive (Response to an electronic controlled [place] bstance refill request - RxReferenceNumber: [id number]) Celebrex 200 mg capsule RxNorm: 192586 1 Capsule(s) PO QD TAKE ONE CAPSULE BY MOUTH EVERY DAY 12/29/2013 04/27/2014 Inactive hydrocodone 10 mg-acetaminophen 325 mg tablet RxNorm: 051017 1-2 Tablet(s) PO QID as needed for severe pain 12/29/2013 01/27/2014 Inactive allopurinol 300 mg tablet RxNorm: 295276 1 Tablet(s) PO QD TAKE ONE TABLET BY MOUTH EVERY DAY 12/29/2013 05/24/2014 Inactive alprazolam 0.5 mg tablet RxNorm: 257463 TAKE ONE TABLET BY MOUTH TWICE A DAY , MUST LAST 30 DAYS 12/29/2013 01/27/2014 Inactive (Response to a n electronic controlled substance refill request - RxReferenceNumber: [id number]) Celebrex 200 mg capsule RxNorm: 128435 1 Capsule(s) PO QD TAKE ONE CAPSULE BY MOUTH EVERY DAY 12/29/2013 12/29/2013 Inactive Bystolic 10 mg tablet RxNorm: 065947 1 Tablet(s) PO QAM TAKE ONE TABLET BY MOUTH EVERY MORNING 12/29/2013 05/24/2014 Inactive Bystolic 10 mg tablet RxNorm: 694351 1 Tablet(s) PO QAM TAKE ONE TABLET BY MOUTH EVERY MORNING 12/29/2013 12/29/2013 Inactive Singulair 10 mg tablet RxNorm: 301625 1 Tablet(s) PO QD TAKE ONE TABLET BY MOUTH EVERY DAY 12/29/2013 05/25/2014 Inactive hydrocodone 10 mg-acetaminophen 325 mg tablet RxNorm: 946379 TAKE ONE TO TWO TABLETS BY MOUTH FOUR TIMES A DAY . MUST LAST 30 DAYS 12/29/20132013 Inactive (Response to an electronic controlled [place] bstance refill request - RxReferenceNumber: [id number]) Trazadone 75mg Tablet RxNorm: 1 Tablet(s) PO QHS as needed 03/23/2014 Inactive Trazadone 75mg Tablet RxNorm: 1 Tablet(s) PO QHS 12/24/20132014 Inactive Soma 350 mg tablet RxNorm: 642970 Tablet(s) PO TAKE ON E TABLET BY MOUTH THREE TIMES A DAY NEEDED FOR MUSCLE SPASMS. THIS MUST LAST 30 DAYS BETWEEN REFILLS. 12/10/2013 12/22/2013 Inactive (Appended: Cont rolled substance eRx refill - RxReferenceNumber: [id number]) diclofenac sodium 75 mg tablet,delayed release RxNorm: 52733 6 1 Tablet(s) PO BID for pain 12/10/2013 02/24/2014 Inactive allopurinol 300 mg tablet RxNorm: 964502 1 Tablet(s) PO QD 11/20/19 14 12/29/2013 Inactive alprazolam 0.5 mg tablet RxNorm: 226412 2 Tablet(s) PO BID 11/13/19 14 12/29/2013 Inactive prn clonidine 0.1 mg tablet RxNorm: 057950 1 Tablet(s) PO TID 11/12/2013 02/09/2014 Inactive replaces 0.2mg dose Klor-Con M20 mEq tablet,extended release RxNorm: 396514 2 Tablet(s) PO BID to use with lasix 11/12/2013 05/10/2014 Inactive Singulair 10 mg tablet RxNorm: 548913 1 Tablet(s) PO QD 11/12/2013 Inactive hydrocodone 10 mg-acetaminophen 325 mg tablet RxNorm: 364932 1-2 Tablet(s) PO QID as needed for severe pain 11/12/2013 12/28/2013 Inactive Bystolic 10 mg tablet RxNorm: 191597 1 Tablet(s) PO QAM 11/12/2013 Inactive Soma 350 mg tablet RxNorm: 862989 Tablet(s) PO TAKE ON E TABLET BY MOUTH THREE TIMES A DAY NEEDED FOR MUSCLE SPASMS. THIS MUST LAST 30 DAYS BETWEEN REFILLS. 10/13/2013 12/10/2013 Inactive (Appended: Cont rolled substance eRx refill - RxReferenceNumber: [id number]) hydrocodone 10 mg-acetaminophen 325 mg tablet RxNorm: 102474 1-2 Tablet(s) PO QID as needed for severe pain 10/03/2013 11/11/2013 Inactive diclofenac sodium 75 mg tablet,delayed release RxNorm: 50009 8 1 Tablet(s) PO BID for pain 09/11/2013 12/10/2013 Inactive alprazolam 0.5 mg tablet RxNorm: 089910 1 Tablet(s) PO BID May refill on 04/26/13 09/01/2013 10/30/2013 Inactive prn hydrocodone 10 mg-acetaminophen 325 mg tablet RxNorm: 235495 1-2 Tablet(s) PO QID as needed for severe pain 09/01/2013 10/02/2013 Inactive triamterene 75 mg-hydrochlorothiazide 50 mg tablet RxNorm: 3 72956 1 Tablet(s) PO QD 08/04/2013 08/31/2014 Inactive cyclobenzaprine 10 mg tablet RxNorm: 556754 1 Tablet(s) PO TID prn spasm 08/04/2013 08/13/2013 Inactive clonidine 0.1 mg tablet RxNorm: 134234 1 Tablet(s) PO TID 08/04/2013 11/11/2013 Inactive replaces 0.2mg dose cyclobenzaprine 10 mg tablet RxNorm: 273363 1 Tablet(s) PO TID prn spasm 07/23/2013 08/01/2013 Inactive hydrocodone 10 mg-acetaminophen 325 mg tablet RxNorm: 861490 2 1-2 Tablet(s) PO QID as needed for severe pain 06/09/2013 08/07/2013 Inactive Singulair 10 mg tablet RxNorm: 595463 1 Tablet(s) PO QD 05/29/2013 Inactive Klor-Con 8 mEq tablet,extended release RxNorm: 758731 1 Tablet( s) PO BID 05/29/2013 02/26/2014 Inactive allopurinol 300 mg tablet RxNorm: 777191 1 Tablet(s) PO QD 05/29/20 13 11/19/2013 Inactive Bystolic 10 mg tablet RxNorm: 402709 1 Tablet(s) PO QAM take one daily in the morning. 05/29/2013 11/11/2013 Inactive scopolamine 1.5 mg 72 hr Transderm Patch RxNorm: 628630 Application TD Q72H for motion sickness 05/26/2013 07/22/2013 Inactive Soma 350 mg tablet RxNorm: 271666 1 Tablet(s) PO TID as needed for spasm 05/19/2013 10/13/2013 Inactive diclofenac sodium 75 mg tablet,delayed release RxNorm: 98581 8 1 Tablet(s) PO BID for pain 05/14/2013 07/22/2013 Inactive allopurinol 300 mg tablet RxNorm: 470808 1 Tablet(s) PO QD 04/25/2005/28/2013 Inactive alprazolam 0.5 mg tablet RxNorm: 326603 1 Tablet(s) PO BID May refill on 04/26/13 04/25/2013 06/23/2013 Inactive prn Celebrex 200 mg capsule RxNorm: 139009 1 Capsule(s) PO QD 04/16/2013 12/29/2013 Inactive alprazolam 0.5 mg tablet RxNorm: 635636 1 Tablet(s) PO BID May refill on 04/26/13 04/16/2013 04/24/2013 Inactive prn Soma 350 mg tablet RxNorm: 558933 1 Tablet(s) PO TID as needed for spasm 04/16/2013 No Stop Date Active Lasix 40 mg tablet RxNorm: 280408 1 Tablet(s) PO RAZA ramirez take potassium supplementation with this medication 04/16/2013 06/14/2013 Inactive clonidine 0.1 mg tablet RxNorm: 278364 1 Tablet(s) PO TID 04/16/2013 08/03/2013 Inactive replaces 0.2mg dose prednisone 20 mg tablet RxNorm: 321375 1 Tablet(s) PO BID 04/16/2013 04/20/2013 Inactive diclofenac sodium 75 mg tablet,delayed release RxNorm: 80829 8 1 Tablet(s) PO BID for pain 04/14/2013 05/13/2013 Inactive hydrocodone 10 mg-acetaminophen 325 mg tablet RxNorm: 826293 2 1-2 Tablet(s) PO QID as needed for severe pain 04/14/2013 No Stop Date Active Lasix 40 mg tablet RxNorm: 480993 1 Tablet(s) PO RAZA ramirez take potassium supplementation with this medication 03/31/2013 04/15/2013 Inactive Celebrex 200 mg capsule RxNorm: 799108 1 Capsule(s) PO QD 03/31/2013 04/15/2013 Inactive alprazolam 0.5 mg tablet RxNorm: 362052 1 Tablet(s) PO BID 03/28/2004/15/2013 Inactive prn hydrocodone 10 mg-acetaminophen 325 mg tablet RxNorm: 205374 2 1-2 Tablet(s) PO QID as needed for severe pain 03/10/2013 No Stop Date Active metformin ER 500 mg 24 hr tablet,extended release RxNorm: 86 1018 1 Tablet(s) PO QD 03/06/2013 07/22/2013 Inactive clindamycin 300 mg capsule RxNorm: 729402 2 Capsule(s) PO TID 03/0503/14/2013 Inactive Zaroxolyn 2.5 mg tablet RxNorm: 878516 1 Tablet(s) PO QAM 03/05/2013 05/19/2015 Inactive amlodipine 10 mg tablet RxNorm: 043280 1 Tablet(s) PO QD 03/03/2013 0 05/25/2013 Inactive Norvasc 10 mg tablet RxNorm: 668959 1 Tablet(s) PO QD 02/28/201307/11 Inactive Celebrex 200 mg capsule RxNorm: 012692 1 Capsule(s) PO QD 02/28/2013 03/30/2013 Inactive diclofenac sodium 75 mg tablet,delayed release RxNorm: 03052 8 1 Tablet(s) PO BID for pain 02/14/2013 03/15/2013 Inactive Soma 350 mg tablet RxNorm: 782915 1 Tablet(s) PO TID as needed for spasm 02/14/2013 No Stop Date Active hydrocodone 10 mg-acetaminophen 325 mg tablet RxNorm: 746124 2 1-2 Tablet(s) PO QID as needed for severe pain 02/14/2013 No Stop Date Active Norvasc 10 mg tablet RxNorm: 295750 1 Tablet(s) PO QD 02/10/201302/09 Inactive Celebrex 200 mg capsule RxNorm: 973714 1 Capsule(s) PO QD 01/27/2013 01/26/2013 Inactive Premarin 1.25 mg tablet RxNorm: 119677 1-2 Tablet(s) PO QD 01/28/20 13 06/25/2013 Inactive alprazolam 0.5 mg tablet RxNorm: 309644 1 Tablet(s) PO BID 01/28/20 13 02/25/2013 Inactive prn amlodipine 5 mg tablet RxNorm: 255916 1 Tablet(s) PO QD 01/27/2013 Inactive Celebrex 200 mg capsule RxNorm: 773851 1 Capsule(s) PO QD 01/27/2013 02/27/2013 Inactive gabapentin 600 mg tablet RxNorm: 776531 1 Tablet(s) PO QHS 01/16/20 13 07/22/2013 Inactive Soma 350 mg tablet RxNorm: 316708 1 Tablet(s) PO TID as needed for spasm 01/15/2013 No Stop Date Active hydrocodone 10 mg-acetaminophen 325 mg tablet RxNorm: 304883 2 1-2 Tablet(s) PO QID as needed for severe pain 01/15/2013 No Stop Date Active Soma 350 mg tablet RxNorm: 981502 1 Tablet(s) PO TID as needed for spasm 01/13/2013 No Stop Date Active alprazolam 0.5 mg tablet RxNorm: 886729 1 Tablet(s) PO BID 12/31/19 13 01/26/2013 Inactive prn diclofenac sodium 75 mg tablet,delayed release RxNorm: 06300 8 1 Tablet(s) PO BID for pain 12/09/2012 01/07/2013 Inactive gabapentin 600 mg tablet RxNorm: 756038 1 Tablet(s) PO QHS 12/10/19 13 01/07/2013 Inactive hydrocodone 10 mg-acetaminophen 325 mg tablet RxNorm: 336843 2 1-2 Tablet(s) PO QID as needed for severe pain 12/02/2012 No Stop Date Active Levaquin 750 mg tablet RxNorm: 720847 1 Tablet(s) PO QD 11/21/2012 Inactive Singulair 10 mg tablet RxNorm: 997699 1 Tablet(s) PO QD 11/11/2012 Inactive clonidine 0.2 mg tablet RxNorm: 194506 1 Tablet(s) PO TID 11/11/2012 04/15/2013 Inactive alprazolam 0.5 mg tablet RxNorm: 148324 1 Tablet(s) PO BID 11/12/19 13 12/10/2012 Inactive prn Klor-Con 8 mEq tablet,extended release RxNorm: 902004 1 Tablet( s) PO BID 11/11/2012 03/04/2013 Inactive hydrocodone 10 mg-acetaminophen 325 mg tablet RxNorm: 789518 2 1-2 Tablet(s) PO QID as needed for severe pain 11/06/2012 No Stop Date Active alprazolam 0.5 mg tablet RxNorm: 894506 1 Tablet(s) PO BID 10/15/19 13 11/10/2012 Inactive prn hydrocodone-acetaminophen 10 mg-325 mg tablet RxNorm: 179497 2 1-2 Tablet(s) PO QID as needed for severe pain 10/10/2012 10/09/2012 Inactive allopurinol 300 mg tablet RxNorm: 397725 1 Tablet(s) PO QD 09/20/19 13 12/18/2012 Inactive alprazolam 0.5 mg tablet RxNorm: 221424 1 Tablet(s) PO BID 09/17/19 13 10/14/2012 Inactive prn hydrocodone-acetaminophen 10 mg-325 mg tablet RxNorm: 663656 2 1-2 Tablet(s) PO QID as needed for severe pain 08/22/2012 08/21/2012 Inactive Norvasc 10 mg tablet RxNorm: 347662 1 Tablet(s) PO QD 08/12/201201/10 Inactive Premarin 1.25 mg tablet RxNorm: 099935 1-2 Tablet(s) PO QD 07/30/20 12 12/26/2012 Inactive alprazolam 0.5 mg tablet RxNorm: 855252 1 Tablet(s) PO BID 07/29/20 12 08/27/2012 Inactive prn Klor-Con 8 mEq tablet,extended release RxNorm: 842838 1 Tablet( s) PO BID 07/29/2012 11/10/2012 Inactive hydrocodone-acetaminophen 10 mg-325 mg tablet RxNorm: 893350 2 1-2 Tablet(s) PO QID as needed for severe pain 07/29/2012 No Stop Date Active Premarin 1.25 mg tablet RxNorm: 079646 1-2 Tablet(s) PO QD 07/29/20 12 07/29/2012 Inactive clonidine 0.2 mg tablet RxNorm: 788461 1 Tablet(s) PO TID 07/29/2012 10/28/2012 Inactive ketorolac 10 mg tablet RxNorm: 006671 1 Tablet(s) PO QID prn he adache 07/18/2012 No Stop Date Active hydrocodone-acetaminophen 10 mg-325 mg tablet RxNorm: 678882 2 1-2 Tablet(s) PO QID as needed for severe pain 07/03/2012 No Stop Date Active amlodipine 5 mg tablet RxNorm: 110439 1 Tablet(s) PO QD 07/02/2012 Inactive allopurinol 300 mg tablet RxNorm: 518358 1 Tablet(s) PO QD 07/02/20 12 09/19/2012 Inactive Celebrex 200 mg capsule RxNorm: 913818 1 Capsule(s) PO QD for j oint pain 06/26/2012 10/23/2012 Inactive diclofenac sodium 75 mg tablet,delayed release RxNorm: 00867 8 1 Tablet(s) PO BID for pain 06/19/2012 09/16/2012 Inactive hydrocodone-acetaminophen 10 mg-325 mg tablet RxNorm: 040600 2 1-2 Tablet(s) PO QID as needed for severe pain 06/10/2012 No Stop Date Active alprazolam 0.5 mg tablet RxNorm: 007898 1 Tablet(s) PO BID 06/03/20 12 07/02/2012 Inactive prn ketorolac 10 mg tablet RxNorm: 064588 1 Tablet(s) PO Q8H 05/27/2012 0 01/21/2019 Inactive as needed for headache hydrocodone-acetaminophen 10 mg-325 mg tablet RxNorm: 361488 2 1-2 Tablet(s) PO QID as needed for severe pain 05/15/2012 No Stop Date Active allopurinol 300 mg tablet RxNorm: 467168 1 Tablet(s) PO QD 05/14/20 12 06/12/2012 Inactive allopurinol 300 mg tablet RxNorm: 596172 1 Tablet(s) PO QD 05/14/20 12 05/13/2012 Inactive amlodipine 5 mg tablet RxNorm: 363359 1 Tablet(s) PO QD 05/01/2012 Inactive amlodipine 5 mg Tab RxNorm: 381704 1 Tablet(s) PO QD 05/01/201204/30 Inactive Celebrex 200 mg capsule RxNorm: 302469 1 Capsule(s) PO QD for j oint pain 05/01/2012 06/25/2012 Inactive Singulair 10 mg tablet RxNorm: 292402 1 Tablet(s) PO QD 05/01/2012 Inactive alprazolam 0.5 mg tablet RxNorm: 707340 1 Tablet(s) PO BID 05/01/20 12 05/30/2012 Inactive prn Celebrex 200 mg Cap RxNorm: 711502 1 Capsule(s) PO QD for joint radu n 05/01/2012 04/30/2012 Inactive hydrocodone-acetaminophen 10 mg-325 mg tablet RxNorm: 215639 2 1-2 Tablet(s) PO QID as needed for severe pain 04/19/2012 No Stop Date Active Lasix 40 mg tablet RxNorm: 652419 1 Tablet(s) PO RAZA ramirez take potassium supplementation with this medication 04/05/2012 06/03/2012 Inactive alprazolam 0.5 mg Tab RxNorm: 013773 1 Tablet(s) PO BID 04/05/2012 Inactive prn hydrocodone-acetaminophen 10 mg-325 mg Tab RxNorm: 0067859 1-2 Tablet(s) PO QID as needed for severe pain 03/25/2012 03/24/2012 Inactive clonidine 0.2 mg Tab RxNorm: 660642 1 Tablet(s) PO TID 03/08/2012 Inactive alprazolam 0.5 mg Tab RxNorm: 314107 1 Tablet(s) PO BID 03/08/2012 Inactive prn Soma 350 mg tablet RxNorm: 916885 1 Tablet(s) PO TID for spasm 02/0903/18/2012 Inactive clonidine 0.2 mg tablet RxNorm: 955710 1 Tablet(s) PO TID 03/08/2012 07/28/2012 Inactive Celebrex 200 mg Cap RxNorm: 718804 1 Capsule(s) PO QD for joint radu n 03/01/2012 04/29/2012 Inactive amlodipine 5 mg Tab RxNorm: 193928 1 Tablet(s) PO QD 02/26/201202/24 Inactive amlodipine 5 mg Tab RxNorm: 296062 1 Tablet(s) PO QD 02/26/201204/25 Inactive Bactroban 2 % Ointment RxNorm: 099414 Application TOP QID to sores 02/23/2012 No Stop Date Active amlodipine 2.5 mg tablet RxNorm: 840456 1 Tablet(s) PO QHS 02/20/2002/25/2012 Inactive doxycycline hyclate 100 mg Cap RxNorm: 8012748 1 Capsule(s) PO BID 02/20/2012 02/29/2012 Inactive hydrocodone-acetaminophen 10 mg-325 mg Tab RxNorm: 2609304 1-2 T ablet(s) PO QID 02/08/2012 No Stop Date Active alprazolam 0.5 mg Tab RxNorm: 358678 1 Tablet(s) PO BID 02/08/2012 Inactive prn Singulair 10 mg Tab RxNorm: 505334 1 Tablet(s) PO QD 02/08/201204/30 Inactive Soma 350 mg Tab RxNorm: 448142 1 Tablet(s) PO TID for spasm 012 03/07/2012 Inactive Soma 350 mg Tab RxNorm: 312338 1 Tablet(s) PO TID for spasm 012 02/05/2012 Inactive diclofenac sodium 75 mg tablet,delayed release RxNorm: 72453 8 1 Tablet(s) PO BID for pain 02/01/2012 03/18/2012 Inactive Celebrex 200 mg Cap RxNorm: 062728 1 Capsule(s) PO QD for joint radu n 01/30/2012 02/28/2012 Inactive Lasix 40 mg Tab RxNorm: 101756 1 Tablet(s) PO QAM 01/24/2012 03/18/20 12 Inactive potassium chloride ER 20 mEq tablet,extended release(part/cr yst) RxNorm: 685067 2 Tablet(s) PO BID 01/24/2012 02/22/2012 Inactive alprazolam 0.5 mg Tab RxNorm: 927506 1 Tablet(s) PO BID 01/11/2012 Inactive prn hydrocodone-acetaminophen 10 mg-325 mg Tab RxNorm: 2255220 1-2 T ablet(s) PO QID 01/11/2012 No Stop Date Active Ambien 10 mg Tab RxNorm: 982979 1 Tablet(s) PO QHS 01/11/2012 012 Inactive Klor-Con 8 mEq Tab RxNorm: 741507 1 Tablet(s) PO BID 01/11/201201/22 Inactive diclofenac sodium 75 mg Tab, Delayed Release RxNorm: 838961 1 Tablet(s) PO BID for pain 01/10/2012 01/31/2012 Inactive Ambien 10 mg Tab RxNorm: 919634 1 Tablet(s) PO QHS 12/11/2011 012 Inactive alprazolam 0.5 mg Tab RxNorm: 643946 1 Tablet(s) PO BID 12/11/2011 Inactive prn hydrocodone 10 mg-acetaminophen 325 mg tablet RxNorm: 740785 1-2 Tablet(s) PO TID 11/28/2011 No Stop Date Active as needed for pa in - Previous quantity #240, will start dosing for #180 in April 2011 per Doctor Td. Ambien 10 mg Tab RxNorm: 814028 1 Tablet(s) PO QHS 11/09/2011 012 Inactive alprazolam 0.5 mg Tab RxNorm: 763865 1 Tablet(s) PO BID 11/09/2011 Inactive prn hydrocodone-acetaminophen 10 mg-325 mg Tab RxNorm: 5815906 1-2 T ablet(s) PO TID 11/06/2011 No Stop Date Active as needed for pain - Previous quantity #240, will start dosing for #180 in April 2011 per Doctor Td. Singulair 10 mg Tab RxNorm: 969555 1 Tablet(s) PO QD 10/13/201110/12 Inactive Singulair 10 mg Tab RxNorm: 750955 1 Tablet(s) PO QD 10/13/201102/06 Inactive hydrocodone-acetaminophen 10 mg-325 mg Tab RxNorm: 2249888 1-2 T ablet(s) PO TID 10/10/2011 10/09/2011 Inactive as needed for pain - Previous quantity #240, will start dosing for #180 in April 2011 per Doctor Td. hydrocodone-acetaminophen 10 mg-325 mg Tab RxNorm: 6223953 1-2 T ablet(s) PO TID 10/09/2011 No Stop Date Active as needed for pain - Previous quantity #240, will start dosing for #180 in April 2011 per Doctor Td. Klor-Con 8 mEq Tab RxNorm: 842027 1 Tablet(s) PO BID 10/02/201101/09 Inactive triamterene 75 mg-hydrochlorothiazide 50 mg tablet RxNorm: 3 64942 1 Tablet(s) PO QD 09/14/2011 03/06/2013 Inactive Ambien 10 mg Tab RxNorm: 377893 1 Tablet(s) PO QHS 09/14/2011 012 Inactive hydrocodone-acetaminophen 10 mg-325 mg Tab RxNorm: 2671751 1-2 T ablet(s) PO TID 09/14/2011 No Stop Date Active as needed for pain - Previous quantity #240, will start dosing for #180 in April 2011 per Doctor Td. alprazolam 0.5 mg Tab RxNorm: 272723 1 Tablet(s) PO BID 09/14/2011 Inactive prn Zithromax 500 mg Tab RxNorm: 9428057 1 Tablet(s) PO QD 09/13/201106/2012 Inactive prednisone 20 mg Tab RxNorm: 874027 1 Tablet(s) PO BID 08/31/2011 Inactive Ambien 10 mg Tab RxNorm: 888239 1 Tablet(s) PO QHS 08/17/2011 011 Inactive hydrocodone-acetaminophen 10 mg-325 mg Tab RxNorm: 5410203 1-2 T ablet(s) PO TID 08/17/2011 No Stop Date Active as needed for pain - Previous quantity #240, will start dosing for #180 in April 2011 per Doctor Td. clonidine 0.2 mg Tab RxNorm: 165302 1 Tablet(s) PO TID 08/17/201112/2011 Inactive Ambien 10 mg Tab RxNorm: 776333 1 Tablet(s) PO QHS 08/17/2011 019 Inactive alprazolam 0.5 mg Tab RxNorm: 807152 1 Tablet(s) PO BID 08/17/2011 Inactive prn hydrocodone-acetaminophen 10 mg-325 mg Tab RxNorm: 3692348 1-2 T ablet(s) PO TID 08/17/2011 08/16/2011 Inactive as needed for pain - Previous quantity #240, will start dosing for #180 in April 2011 per Doctor Td. Singulair 10 mg Tab RxNorm: 444129 1 Tablet(s) PO QD 08/17/201108/16 Inactive Klor-Con 8 mEq Tab RxNorm: 197308 1 Tablet(s) PO QD 08/17/20112011 Inactive alprazolam 0.5 mg Tab RxNorm: 589085 1 Tablet(s) PO BID 07/20/2011 Inactive prn Ambien 10 mg Tab RxNorm: 587505 1 Tablet(s) PO QHS 07/20/2011 012 Inactive Singulair 10 mg Tab RxNorm: 357830 1 Tablet(s) PO QD 07/20/201107/19 Inactive Premarin 1.25 mg tablet RxNorm: 384363 2 Tablet(s) PO QD 07/20/2011 0 01/21/2019 Inactive Premarin 1.25 mg tablet RxNorm: 578253 1-2 Tablet(s) PO QD 07/20/20 11 12/16/2011 Inactive Premarin 1.25 mg Tab RxNorm: 262915 1-2 Tablet(s) PO QD 07/06/2011 Inactive alprazolam 0.5 mg Tab RxNorm: 179358 1 Tablet(s) PO BID 06/22/2011 Inactive prn alprazolam 0.5 mg Tab RxNorm: 754259 1 Tablet(s) PO BID 06/22/2011 Inactive prn Premarin 1.25 mg Tab RxNorm: 902954 1 Tablet(s) PO QD m ay do 90 day fill if desired 06/22/2011 07/05/2011 Inactive hydrocodone-acetaminophen 10 mg-325 mg Tab RxNorm: 8610539 1-2 T ablet(s) PO TID 06/22/2011 No Stop Date Active as needed for pain - Previous quantity #240, will start dosing for #180 in April 2011 per Doctor Td. clonidine 0.2 mg Tab RxNorm: 220322 1 Tablet(s) PO TID 05/25/201103/2011 Inactive triamterene-hydrochlorothiazide 75 mg-50 mg Tab RxNorm: 3108 18 1 Tablet(s) PO QD 05/25/2011 09/13/2011 Inactive alprazolam 0.5 mg Tab RxNorm: 690959 1 Tablet(s) PO BID 05/25/2011 Inactive prn hydrocodone-acetaminophen 10 mg-325 mg Tab RxNorm: 5364679 1-2 T ablet(s) PO TID 05/25/2011 No Stop Date Active as needed for pain - Previous quantity #240, will start dosing for #180 in April 2011 per Doctor Td. Robaxin-750 750 mg Tab RxNorm: 952587 2 Tablet(s) PO QHS 05/22/2011 1 Inactive prn spasm hydrocodone-acetaminophen 10 mg-325 mg Tab RxNorm: 5689600 1-2 T ablet(s) PO TID 04/26/2011 No Stop Date Active as needed for pain - Previous quantity #240, will start dosing for #180 in April 2011 per Doctor Td. alprazolam 0.5 mg Tab RxNorm: 902891 1 Tablet(s) PO BID 04/25/2011 Inactive prn Klor-Con 8 mEq Tab RxNorm: 330883 1 Tablet(s) PO QD 03/30/20112010 Inactive Klor-Con 8 mEq Tab RxNorm: 006479 1 Tablet(s) PO QD 03/29/20112010 Inactive hydrocodone-acetaminophen 10 mg-325 mg Tab RxNorm: 3065161 1-2 T ablet(s) PO TID 03/20/2011 04/25/2011 Inactive as needed for pain - Previous quantity #240, will start dosing for #180 in April 2011 per Doctor Td. alprazolam 0.5 mg Tab RxNorm: 783892 1 Tablet(s) PO BID prn 011 03/30/2011 Inactive Ambien 10 mg Tab RxNorm: 706317 1 Tablet(s) PO QHS 03/01/2011 011 Inactive cyclobenzaprine 10 mg Tab RxNorm: 258315 1 Tablet(s) PO TID 011 03/18/2012 Inactive cyclobenzaprine 10 mg Tab RxNorm: 222096 1 Tablet(s) PO TID 011 01/08/2011 Inactive cyclobenzaprine 10 mg Tab RxNorm: 366540 1 Tablet(s) PO TID 011 12/20/2010 Inactive terbinafine 250 mg Tab RxNorm: 706996 1 Tablet(s) PO QD 12/12/2010 Inactive triamterene-hydrochlorothiazide 75 mg-50 mg Tab RxNorm: 3108 18 1 Tablet(s) PO QD 12/07/2010 06/04/2011 Inactive Klor-Con 8 8 mEq Tab RxNorm: 553517 1 Tablet(s) PO QD 12/07/201001/08 Inactive Premarin 1.25 mg Tab RxNorm: 203156 2 Tablet(s) PO QD 12/07/201001/08 Inactive clonidine 0.2 mg Tab RxNorm: 484469 1 Tablet(s) PO TID 12/07/2010 Inactive hydrocodone-acetaminophen 7.5 mg-650 mg Tab RxNorm: 856378 1 Ta blet(s) PO Q4H 12/05/2010 01/21/2019 Inactive hydrocodone-acetaminophen 7.5 mg-650 mg Tab RxNorm: 120948 1 Ta blet(s) PO Q4H 10/26/2010 11/14/2010 Inactive hydrocodone-acetaminophen 7.5 mg-650 mg Tab RxNorm: 511159 1 Ta blet(s) PO Q4H 10/13/2010 10/25/2010 Inactive hydrocodone-acetaminophen 7.5 mg-650 mg Tab RxNorm: 603837 1 Ta blet(s) PO Q4H 09/15/2010 09/12/2010 Inactive alprazolam 0.5 mg Tab RxNorm: 140643 1 Tablet(s) PO BID prn 011 09/12/2010 Inactive terbinafine 250 mg Tab RxNorm: 232678 1 Tablet(s) PO QD 09/05/2010 Inactive hydrocodone-acetaminophen 7.5 mg-650 mg Tab RxNorm: 171832 1 Ta blet(s) PO Q4H 08/29/2010 09/17/2010 Inactive alprazolam 0.5 mg Tab RxNorm: 187945 1 Tablet(s) PO BID prn 010 09/27/2010 Inactive alprazolam 0.5 mg Tab RxNorm: 700342 1 Tablet(s) PO BID prn 010 09/06/2010 Inactive Klor-Con 8 mEq Tab RxNorm: 174451 1 Tablet(s) PO QD 08/08/20102010 Inactive hydrocodone-acetaminophen 7.5 mg-650 mg Tab RxNorm: 648426 1 Ta blet(s) PO Q4H 08/08/2010 08/27/2010 Inactive Ambien 10 mg Tab RxNorm: 854000 1 Tablet(s) PO QHS 08/08/2010 Inactive clonidine 0.2 mg Tab RxNorm: 583372 1 Tablet(s) PO TID 08/08/2010 Inactive Premarin 1.25 mg Tab RxNorm: 602536 2 Tablet(s) PO QD 08/08/201009/12 Inactive Ambien 10 mg Tab RxNorm: 981456 1 Tablet(s) PO QHS 07/18/2010 Inactive alprazolam 0.5 mg Tab RxNorm: 460522 1 Tablet(s) PO BID prn 08/07/2010 Inactive hydrocodone-acetaminophen 7.5 mg-650 mg Tab RxNorm: 796191 1 Ta blet(s) PO Q4H 07/12/2010 07/31/2010 Inactive clonidine 0.2 mg Tab RxNorm: 469518 1 Tablet(s) PO TID 06/20/2010 Inactive terbinafine 250 mg Tab RxNorm: 673561 1 Tablet(s) PO QD 05/24/2010 Inactive Clonidine 0.2 mg Tab RxNorm: 455959 1 Tablet(s) PO TID 05/24/201006/2010 Inactive Ambien 10 mg Tab RxNorm: 604683 1 Tablet(s) PO QHS 05/24/2010 Inactive alprazolam 0.5 mg Tab RxNorm: 399972 1 Tablet(s) PO BID 05/24/2010 Inactive Klor-Con 8 mEq Tab RxNorm: 294093 1 Tablet(s) PO QD 05/24/20102009 Inactive alprazolam 0.5 mg Tab RxNorm: 810535 2 Tablet(s) PO QD prn 05/24/2007/17/2010 Inactive triamterene-hydrochlorothiazide 75 mg-50 mg Tab RxNorm: 3108 18 1 Tablet(s) PO QD 05/24/2010 11/19/2010 Inactive Ambien 10 mg Tab RxNorm: 259909 1 Tablet(s) PO QHS 05/23/2010 Inactive Alprazolam 0.5 mg Tab RxNorm: 679204 2 Tablet(s) PO QD prn 05/23/20 10 05/23/2010 Inactive Premarin 1.25 mg Tab RxNorm: 625305 2 Tablet(s) PO QD 05/19/201007/12 Inactive Hydrocodone-Acetaminophen 7.5 mg-650 mg Tab RxNorm: 998897 1 Ta blet(s) PO Q4H 05/19/2010 03/20/2011 Inactive Prednisone 20 mg Tab RxNorm: 696390 1 Tablet(s) PO BID 05/17/2010 Inactive Prednisone 20 mg Tab RxNorm: 481249 1 Tablet(s) PO BID 05/06/201001/2010 Inactive Premarin 1.25 mg Tab RxNorm: 000411 Tablet(s) PO 2 M-W-F, and 1 Vn-Ph-Uwl-Sun 05/05/2010 08/02/2010 Inactive Premarin 1.25 mg Tab RxNorm: 431485 Tablet(s) PO 2 M-W-F, and 1 Uq-Ky-Kom-Sun 05/04/2010 05/04/2010 Inactive Premarin 1.25 mg Tab RxNorm: 686484 Tablet(s) PO 2 M-W-F, and 1 Mf-Wx-Fnp-Sun 05/04/2010 05/03/2010 Inactive Prednisone 20 mg Tab RxNorm: 938151 1 Tablet(s) PO BID 04/27/2010 Inactive Alprazolam 0.5 mg Tab RxNorm: 970807 2 Tablet(s) PO QD prn 04/26/20 10 05/22/2010 Inactive Clindamycin 300 mg Cap RxNorm: 584805 2 Capsule(s) PO TID 04/05/2010 04/18/2010 Inactive Terbinafine 250 mg Tab RxNorm: 585336 1 Tablet(s) PO QD 04/04/2010 Inactive Hydrocodone-Acetaminophen 7.5 mg-650 mg Tab RxNorm: 411002 1 Ta blet(s) PO Q4H 03/30/2010 04/18/2010 Inactive Avelox 400 mg Tab RxNorm: 780567 1 Tablet(s) PO QD 03/09/2010 Inactive Hydrocodone-Acetaminophen 7.5 mg-650 mg Tab RxNorm: 807605 1 Ta blet(s) PO Q4H 03/08/2010 03/27/2010 Inactive Alprazolam 0.5 mg Tab RxNorm: 526285 2 Tablet(s) PO QD prn 03/08/20 10 04/25/2010 Inactive Klor-Con 8 mEq Tab RxNorm: 318846 1 Tablet(s) PO QD when takes lasi x 03/07/2010 09/29/2019 Inactive Premarin 1.25 mg Tab RxNorm: 217696 1 Tablet(s) PO QD 03/03/201003/11 Inactive Alprazolam 0.5 mg Tab RxNorm: 220320 1 Tablet(s) PO BID PRN 010 No Stop Date Active triamterene-hydrochlorothiazide 75 mg-50 mg Tab RxNorm: 3108 18 1 Tablet(s) PO QD 02/09/2010 02/03/2011 Inactive Hydrocodone-Acetaminophen 10 mg-750 mg Tab RxNorm: 978878 1 Tablet(s) PO Q4H PRN 02/09/2010 03/20/2011 Inactive Clonidine 0.2 mg Tab RxNorm: 808935 1 Tablet(s) PO TID 01/13/201009/2009 Inactive Alprazolam 0.5 mg Tab RxNorm: 150114 1 Tablet(s) PO BID PRN 010 01/12/2010 Inactive Hydrocodone-Acetaminophen 10 mg-750 mg Tab RxNorm: 025317 1 Tablet(s) PO Q4H PRN 01/13/2010 01/12/2010 Inactive ANGELIQ 1 mg-0.5 mg Tab RxNorm: 0832696 1 Tablet(s) PO QD 12/27/2009 01/23/2010 Inactive Lasix 40 mg Tab RxNorm: 362298 1 Tablet(s) PO QAM 12/14/2009 06/11/20 10 Inactive Vitamin B12 1000mcg Tablet RxNorm: 1 Tablet(s) PO QD No Start Date Active cyclobenzaprine 10 mg tablet RxNorm: 419265 1 Tablet(s) PO TID as needed DO NOT USE WITH BACLOFEN No Start Date Active Vitamin D 5,000 unit Tab RxNorm: 1 Tablet(s) PO QD No Start Date Active vitamin E (dl, acetate) 400 unit Cap RxNorm: 948534 1 Capsule(s ) PO QD No Start Date Active Benadryl 25 mg Cap RxNorm: 8273006 Capsule(s) PO PRN No Start Date Inactive amitriptyline 100 mg tablet RxNorm: 193391 1 Tablet(s) PO QHS No St art Date 11/27/2016 Inactive Zithromax Z-Dustin 250 mg tablet RxNorm: 031740 Tablet(s) PO as di rected No Start Date 07/22/2013 Inactive Klor-Con 8 mEq tablet,extended release RxNorm: 872661 1 Tablet( s) PO BID No Start Date 07/28/2012 Inactive scopolamine 1.5 mg 72 hr Transderm Patch RxNorm: 551310 Application TD Q72H for motion sickness No Start Date 05/25/2013 Inactive Klonopin 1 mg tablet RxNorm: 372531 1-2 Tablet(s) PO QHS as nee ded for sleep No Start Date 06/20/2015 Inactive Klor-Con M20 mEq tablet,extended release RxNorm: 444997 2 Tablet(s) PO BID to use with lasix No Start Date 11/11/2013 Inactive Bystolic 5 mg tablet RxNorm: 238834 1 Tablet(s) PO QD No Start Date 1 Inactive Bystolic 10 mg tablet RxNorm: 596242 1 Tablet(s) PO BID No Start Da te 07/06/2015 Inactive Premarin 1.25 mg Tab RxNorm: 127177 Tablet(s) PO 2 -W-, and 1 Ec-Sb-Xnx-Sun No Start Date 05/03/2010 Inactive baclofen 20 mg tablet RxNorm: 783268 1 Tablet(s) PO TID as needed for muscle spasm No Start Date 07/22/2015 Inactive hydrocodone-acetaminophen 7.5 mg-650 mg Tab RxNorm: 374607 1 Tablet(s) PO Q4H as needed for pain No Start Date 03/20/2011 Inactive albuterol sulfate 1.25 mg/3 mL Neb Solution RxNorm: 935007 1 Unit Dose INH Q4H 2boxes No Start Date 09/06/2015 Inactive Butrans 20 mcg/hour Transderm Patch RxNorm: 135735 1 TD WEEKLY apply to skin weekly after removing previous. No Start Date 07/22/2013 Inactive Medrol (Dustin) 4 mg tablets in a dose pack RxNorm: 128070 Tablet(s) PO As Directed No Start Date 07/30/2016 Inactive hydrocodone-acetaminophen 10 mg-325 mg Tab RxNorm: 2546553 1-2 Tablet(s) PO TID as needed for pain No Start Date 03/19/2011 Inactive Klonopin 1 mg tablet RxNorm: 257152 1 Tablet(s) PO QHS No Start Date 02/28/2016 Inactive honey topical RxNorm: topical No Start Date 06/16/2018 Inactive Clonidine 0.2 mg Tab RxNorm: 031523 1 Tablet(s) PO TID No Start Date 01/12/2010 Inactive ketorolac 10 mg tablet RxNorm: 376652 1 Tablet(s) PO Q8H No Start D ate 03/18/2012 Inactive as needed for headache Singulair 10 mg Tab RxNorm: 858874 1 Tablet(s) PO QD No Start Date Inactive Premarin 1.25 mg Tab RxNorm: 431781 1 Tablet(s) PO QD No Start Date 1 Inactive Flonase 50 mcg/Actuation Nasal [place] RxNorm: 6194446 1 [place] CECELIA AL BID No Start Date 03/18/2012 Inactive Terbinafine 250 mg Tab RxNorm: 557916 1 Tablet(s) PO QD No Start Da te 04/03/2010 Inactive Fexofenadine 180 mg Tab RxNorm: 4701084 1 Tablet(s) PO QD No Start Date 09/06/2015 Inactive baclofen 20 mg tablet RxNorm: 964655 1 Tablet(s) PO TID as needed N o Start Date 05/25/2014 Inactive Diovan 160 mg Tab RxNorm: 741926 1 Tablet(s) PO QD No Start Date 09/12 Inactive mupirocin 2 % topical ointment RxNorm: 584950 1 Application TOP QID No Start Date 04/25/2016 Inactive ZOFRAN ODT 4 mg Tab, Rapid Dissolve RxNorm: 815117 1 Tablet(s) PO Q4H No Start Date 03/18/2012 Inactive as needed for nausea and vomiting Alprazolam 0.5 mg Tab RxNorm: 805204 1 Tablet(s) PO BID PRN No Star t Date 01/12/2010 Inactive cyclobenzaprine 10 mg tablet RxNorm: 649053 1 Tablet(s) PO TID as needed for muscle spasm No Start Date 10/08/2017 Inactive Albuterol 0.083% Aerosol Solution RxNorm: 1 Appl ication INH Q4H Use one ampule every 4 hrs with nebulizer as needed for shortness of breath. No Start Date 10/09/2010 Inactive lorazepam 1 mg tablet RxNorm: 884004 1 1/2 Tablet(s) PO QHS No Star t Date 02/02/2016 Inactive Melatonin 3 mg Tab RxNorm: 743949 Tablet(s) PO PRN No Start Date 07/11 Inactive Medrol (Dustin) 4 mg Tabs in a Dose Pack RxNorm: 651114 Tablet(s) PO N o Start Date 11/28/2010 Inactive lorazepam 1 mg tablet RxNorm: 195856 1 Tablet(s) PO QHS as need ed for sleep No Start Date 01/30/2016 Inactive hydrocodone-acetaminophen 10 mg-325 mg Tab RxNorm: 8552256 1-2 Tablet(s) PO QID as needed for severe pain No Start Date 03/24/2012 Inactive celecoxib 200 mg capsule RxNorm: 291126 1 Capsule(s) PO BID No Star t Date 06/26/2019 Inactive amlodipine 5 mg-benazepril 20 mg capsule RxNorm: 824585 1 Capsu le(s) PO QD No Start Date 04/10/2017 Inactive Bystolic 20 mg tablet RxNorm: 961488 1/2 Tablet(s) PO QAM No Start Date 01/23/2016 Inactive Bystolic 20 mg tablet RxNorm: 339221 1 Tablet(s) PO QAM No Start Da te 04/25/2016 Inactive Ambien 10 mg Tab RxNorm: 588815 1 Tablet(s) PO QHS No Start Date 05/11 Inactive Klor-Con 8 mEq Tab RxNorm: 188744 1 Tablet(s) PO QD when takes lasix No Start Date 03/06/2010 Inactive aspirin 81 mg tablet RxNorm: 824275 1 Tablet(s) PO QD No Start Date 0 01/29/2018 Inactive hydrocodone-acetaminophen 10 mg-325 mg Tab RxNorm: 5386282 1-2 T ablet(s) PO QID No Start Date 01/10/2012 Inactive Bystolic 10 mg tablet RxNorm: 230051 1 Tablet(s) PO QAM take one daily in the morning. No Start Date 05/28/2013 Inactive nystatin 100,000 unit/mL Oral Susp RxNorm: 292829 5 Milliliter( s) PO QID No Start Date 03/18/2012 Inactive swish and spit scopolamine 1.5 mg 72 hr Transderm Patch RxNorm: 392125 1 Unit Dose TD Q72H for motion sickness No Start Date 12/23/2013 Inactive Hydrocodone-Acetaminophen 10 mg-750 mg Tab RxNorm: 460624 1 Tablet(s) PO Q4H PRN No Start Date 01/12/2010 Inactive Soma 350 mg tablet RxNorm: 094819 1 Tablet(s) PO TID as needed for spasm No Start Date 01/12/2013 Inactive baclofen 10 mg tablet RxNorm: 993673 1 Tablet(s) PO TID as needed for muscle spasm No Start Date 09/18/2019 Inactive Soma 350 mg Tab RxNorm: 818922 1 Tablet(s) PO TID for spasm No Star t Date 01/31/2012 Inactive Co Q-10 400 mg capsule RxNorm: 155676 1 Capsule(s) PO QD No Start D ate 01/21/2019 Inactive nystatin 100,000 unit/gram topical cream RxNorm: 658335 Applica tion TOP BID No Start Date 03/22/2015 Inactive Exforge 5 mg-160 mg Tab RxNorm: 586736 1 Tablet(s) PO QD No Start D ate 10/09/2010 Inactive Hydrocodone-Acetaminophen 7.5 mg-650 mg Tab RxNorm: 911323 1 Ta blet(s) PO Q4H No Start Date 03/07/2010 Inactive Robaxin-750 750 mg Tab RxNorm: 669185 1-2 Tablet(s) PO TID prn spasm No Start Date 05/21/2011 Inactive amlodipine 5 mg tablet RxNorm: 085396 1 Tablet(s) PO QHS No Start D ate 09/29/2015 Inactive oxycodone-acetaminophen 10 mg-325 mg tablet RxNorm: 1149908 1-2 Tablet(s) PO Q6H No Start Date 06/16/2018 Inactive Triamterene-Hydrochlorothiazide 75 mg-50 mg Tab RxNorm: 3108 18 1 Tablet(s) PO QD No Start Date 02/08/2010 Inactive Alprazolam 0.5 mg Tab RxNorm: 065811 2 Tablet(s) PO QD prn No Start Date 03/07/2010 Inactive Bystolic 20 mg tablet RxNorm: 991085 1 Tablet(s) PO QAM No Start Da te 08/17/2015 Inactive ketorolac 10 mg tablet RxNorm: 929698 1 Tablet(s) PO QID prn he adache No Start Date 07/17/2012 Inactive acyclovir 800 mg Tab RxNorm: 090420 1 Tablet(s) PO BID No Start Date 03/18/2012 Inactive duloxetine 60 mg capsule,delayed release RxNorm: 160170 1 Capsu le(s) PO QD No Start Date 09/29/2015 Inactive Norvasc 5 mg tablet RxNorm: 037456 1 Tablet(s) PO QHS No Start Date 1 10/18/2014 Inactive promethazine 25 mg tablet RxNorm: 077363 1 Tablet(s) PO Q8H use sparingly No Start Date 07/22/2013 Inactive alprazolam 0.5 mg tablet RxNorm: 550414 3 Tablet(s) PO QHS No Start Date 06/06/2015 Inactive Lunesta 3 mg tablet RxNorm: 255459 1 Tablet(s) PO QHS No Start Date 0 09/20/2017 Inactive hydrocodone-acetaminophen 10 mg-325 mg Tab RxNorm: 8037859 1-2 Tablet(s) PO TID as needed for pain No Start Date 12/10/2011 Inactive Coricidin HBP Cough & Cold 4 mg-30 mg Tab RxNorm: 0599112 Tablet (s) PO PRN No Start Date 10/09/2010 Inactive Bactroban 2 % Ointment RxNorm: 316979 Application TOP QID to so res No Start Date 02/22/2012 Inactive Flonase 50 mcg/actuation Nasal [place] RxNorm: 042612 2 [place] QHS No Start Date 03/03/2014 Inactive Medication Administered No Medication Administered data Immunizations Vaccine Codes Date Status Tetanus, Diptheria, Pertussis CVX: 115 02/27/2014 Results Observation Observation Code Item Item Code Result Date S vice Location COMPREHENSIVE METABOLIC 67264 AST 15 U/L 2019 Unknown COMPREHENSIVE METABOLIC 28462 ALT 13 U/L 2019 Unknown COMPREHENSIVE METABOLIC 46607 BUN 12 mg/dL 2019 Unknown COMPREHENSIVE METABOLIC 67640 ALBUMIN 3.9 g/dL 2019 Unknown COMPREHENSIVE METABOLIC 59160 CHLORIDE 97 mmol/L 2019 Unknown COMPREHENSIVE METABOLIC 64943 Bili Total 0.4 mg/dL 09/29 Unknown COMPREHENSIVE METABOLIC 69312 ALK PHOS 130 U/L 2019 Unknown COMPREHENSIVE METABOLIC 87801 SODIUM 136 mmol/L 09/29 Unknown COMPREHENSIVE METABOLIC 18469 CREATININE 0.92 mg/dL 09/11 Unknown COMPREHENSIVE METABOLIC 99559 CALCIUM 9.1 mg/dL 2019 Unknown COMPREHENSIVE METABOLIC 02150 POTASSIUM 4.4 mmol/L 09/29 Unknown COMPREHENSIVE METABOLIC 54332 Total Protein 6.2 g/dL Unknown COMPREHENSIVE METABOLIC 19822 Glucose 391 mg/dL 2019 Unknown COMPREHENSIVE METABOLIC 21705 Bicarbonate 30 mmol/L 09/11 Unknown COMPREHENSIVE METABOLIC 59274 AGAP 9 mmol/L 2019 Unknown MEAN GLUC 4075224 Calc Mean Gluc 332 mg/dL 09/29/2019 Unkn own COMPLETE BLOOD COUNT [id number] WBC 7.0 10e9/L 09/29/19 Unknown COMPLETE BLOOD COUNT [id number] RBC 4.69 10e12/L 2019 Unknown COMPLETE BLOOD COUNT 6993731 HEMOGLOBIN 14.6 g/dL 09/29/19 Unknown COMPLETE BLOOD COUNT 6148952 HEMATOCRIT 45.2 % 09/29/19 Unknown COMPLETE BLOOD COUNT 6574574 MCV 96.4 fL 0 Unknown COMPLETE BLOOD COUNT 4257554 MCH 31.1 pg 0 Unknown COMPLETE BLOOD COUNT 4583593 MCHC 32.3 g/dL 0 Unknown COMPLETE BLOOD COUNT 6227774 PLATELET COUNT 209 10e9/L Unknown COMPLETE BLOOD COUNT 0126993 Mean Plt Volume 9.8 fL Unknown COMPLETE BLOOD COUNT 1310130 Neut Auto 48.1 % 0 Unknown COMPLETE BLOOD COUNT 9485550 Lymph Auto 36.5 % 09/29/19 20 Unknown COMPLETE BLOOD COUNT 0236150 [place] Auto 8.6 % 0 Unknown COMPLETE BLOOD COUNT 3501012 RDW 13.4 % 0 Unknown COMPLETE BLOOD COUNT 7020818 Eos Auto 6.5 % 0 Unknown COMPLETE BLOOD COUNT 4594790 Baso Auto 0.3 % 0 Unknown COMPLETE BLOOD COUNT 7333860 Neutrophil Abs 3.37 10e9/L Unknown COMPLETE BLOOD COUNT 5789585 Lymphocyte Abs 2.56 10e9/L Unknown COMPLETE BLOOD COUNT 2302680 Monocyte Abs 0.60 10e9/L 09/11 Unknown COMPLETE BLOOD COUNT 4314626 Eosinophil Abs 0.46 10e9/L Unknown COMPLETE BLOOD COUNT 4324312 RDW-SD 45.9 fL 0 Unknown COMPLETE BLOOD COUNT [id number] Basophil Abs 0.02 10e9/L 09/11 Unknown LIPID GROUP 23855 Cholesterol 248 mg/dL 09/29/2019 Unkno wn LIPID GROUP 81612 Triglyceride 898 mg/dL 09/29/2019 Unkn own LIPID GROUP 09137 HDL CHOLESTEROL 41 mg/dL 09/29/2019 U nknown LIPID GROUP 22257 Chol/HDL Ratio 6.05 ratio 09/29/2019 U nknown LIPID GROUP 54274 NON-HDL Chol 207 mg/dL 09/29/2019 Unkn own LIPID GROUP 57785 LDL Cholesterol N/A Trig >400 020 Unknown GLYCOSYLATED HEMOGLOBIN TEST 27515 Hgb A1c 10352-2 13.2 % 0 09/29/2019 Unknown FREE T4 87998 T4 Free 0.75 ng/dL 09/29/2019 Unknown GFR CALC 4324608 GFR Non Afr Amr >60 mL/min 09/29/2019 Un known GFR CALC 1328691 GFR Afr Amr >60 mL/min 09/29/2019 Unknow n THYROID STIMULATING HORMONE 91360 TSH 4.245 uIU/mL 09/29/2019 Unknown COMPLETE BLOOD COUNT 9325674 WBC 10.7 10e9/L 018 Unknown COMPLETE BLOOD COUNT 1995131 RBC 4.59 10e12/L 2017 Unknown COMPLETE BLOOD COUNT 1574659 HEMOGLOBIN 14.8 g/dL 12/11/19 18 Unknown COMPLETE BLOOD COUNT 1681247 HEMATOCRIT 44.9 % 12/11/19 18 Unknown COMPLETE BLOOD COUNT 5826862 MCV 97.8 fL 8 Unknown COMPLETE BLOOD COUNT 8851642 MCH 32.2 pg 8 Unknown COMPLETE BLOOD COUNT 7184849 MCHC 33.0 g/dL 8 Unknown COMPLETE BLOOD COUNT 6432089 PLATELET COUNT 261 10e9/L 10/2017 Unknown COMPLETE BLOOD COUNT 0105016 Mean Plt Volume 9.5 fL 10/2017 Unknown COMPLETE BLOOD COUNT 4848276 Neut Auto 59.9 % 8 Unknown COMPLETE BLOOD COUNT 7847283 Lymph Auto 27.4 % 12/11/19 18 Unknown COMPLETE BLOOD COUNT 5197445 [place] Auto 8.2 % 8 Unknown COMPLETE BLOOD COUNT 1178006 RDW 13.3 % 8 Unknown COMPLETE BLOOD COUNT 5998919 Eos Auto 4.1 % 8 Unknown COMPLETE BLOOD COUNT 5126248 Baso Auto 0.4 % 8 Unknown COMPLETE BLOOD COUNT 3170691 Neutrophil Abs 6.41 10e9/L Unknown COMPLETE BLOOD COUNT 0125644 Lymphocyte Abs 2.93 10e9/L Unknown COMPLETE BLOOD COUNT 1695316 Monocyte Abs 0.88 10e9/L 10/2017 Unknown COMPLETE BLOOD COUNT 1921310 Eosinophil Abs 0.44 10e9/L Unknown COMPLETE BLOOD COUNT 9073922 RDW-SD 46.2 fL 8 Unknown COMPLETE BLOOD COUNT 5156057 Basophil Abs 0.04 10e9/L 10/2017 Unknown THYROID STIMULATING HORMONE 43960 TSH 4.015 uIU/mL 12/10/2017 Unknown COMPREHENSIVE METABOLIC 66092 AST 25 U/L 2017 Unknown COMPREHENSIVE METABOLIC 09012 ALT 17 U/L 2017 Unknown COMPREHENSIVE METABOLIC 30748 BUN 19 mg/dL 2017 Unknown COMPREHENSIVE METABOLIC 33138 ALBUMIN 4.0 g/dL 2017 Unknown COMPREHENSIVE METABOLIC 84057 CHLORIDE 91 mmol/L 2017 Unknown COMPREHENSIVE METABOLIC 55942 Bili Total 0.5 mg/dL 12/10 Unknown COMPREHENSIVE METABOLIC 82968 ALK PHOS 75 U/L 2017 Unknown COMPREHENSIVE METABOLIC 79292 SODIUM 136 mmol/L 12/10 Unknown COMPREHENSIVE METABOLIC 31770 CREATININE 1.05 mg/dL 10/2017 Unknown COMPREHENSIVE METABOLIC 88949 CALCIUM 8.9 mg/dL 2017 Unknown COMPREHENSIVE METABOLIC 64029 POTASSIUM 3.4 mmol/L 12/10 Unknown COMPREHENSIVE METABOLIC 99348 Total Protein 6.5 g/dL Unknown COMPREHENSIVE METABOLIC 89043 Glucose 138 mg/dL 2017 Unknown COMPREHENSIVE METABOLIC 38951 Bicarbonate 35 mmol/L 10/2017 Unknown COMPREHENSIVE METABOLIC 05763 AGAP 10 mmol/L 2017 Unknown MEAN GLUC 8372816 Calc Mean Gluc 171 mg/dL 12/10/2017 Unkn own LIPID GROUP 61908 Cholesterol 204 mg/dL 12/10/2017 Unkno wn LIPID GROUP 99932 Triglyceride 411 mg/dL 12/10/2017 Unkn own LIPID GROUP 28421 HDL CHOLESTEROL 50 mg/dL 12/10/2017 U nknown LIPID GROUP 75651 Chol/HDL Ratio 4.08 ratio 12/10/2017 U nknown LIPID GROUP 36003 NON-HDL Chol 154 mg/dL 12/10/2017 Unkn own LIPID GROUP 00995 LDL Cholesterol N/A Trig >400 018 Unknown GLYCOSYLATED HEMOGLOBIN TEST 44759 Hgb A1c 33167-1 7.6 % 0 12/10/2017 Unknown FREE T4 59724 T4 Free 1.40 ng/dL 12/10/2017 Unknown GFR CALC 0840897 GFR Non Afr Amr 55 mL/min 12/10/2017 Unk nown GFR CALC 0072161 GFR Afr Amr >60 mL/min 12/10/2017 Unknow n GFR CALC 7902161 GFR Non Afr Amr 48 mL/min 06/28/2017 Unk nown GFR CALC 4514584 GFR Afr Amr 59 mL/min 06/28/2017 Unknown COMPREHENSIVE METABOLIC 21056 AST 32 U/L 2016 Unknown COMPREHENSIVE METABOLIC 57541 ALT 22 U/L 2016 Unknown COMPREHENSIVE METABOLIC 55507 BUN 23 mg/dL 2016 Unknown COMPREHENSIVE METABOLIC 84039 ALBUMIN 4.7 g/dL 2016 Unknown COMPREHENSIVE METABOLIC 56109 CHLORIDE 89 mmol/L 2016 Unknown COMPREHENSIVE METABOLIC 26701 Bili Total 0.5 mg/dL 06/28 Unknown COMPREHENSIVE METABOLIC 96695 ALK PHOS 90 U/L 2016 Unknown COMPREHENSIVE METABOLIC 68672 SODIUM 135 mmol/L 06/28 Unknown COMPREHENSIVE METABOLIC 79853 CREATININE 1.18 mg/dL 06/10 Unknown COMPREHENSIVE METABOLIC 38671 CALCIUM 9.7 mg/dL 2016 Unknown COMPREHENSIVE METABOLIC 69799 POTASSIUM 3.5 mmol/L 06/28 Unknown COMPREHENSIVE METABOLIC 80877 Total Protein 7.7 g/dL Unknown COMPREHENSIVE METABOLIC 55948 Glucose 129 mg/dL 2016 Unknown COMPREHENSIVE METABOLIC 92851 Bicarbonate 34 mmol/L 06/10 Unknown COMPREHENSIVE METABOLIC 52909 AGAP 12 mmol/L 2016 Unknown LIPID GROUP 07668 HDL TEST 64 MG/DL 08/27/2014 Unknown LIPID GROUP 50947 TRIG 222 MG/DL 08/27/2014 Unknown LIPID GROUP 56080 TEST LDL 209 MG/DL 08/27/2014 Unknown LIPID GROUP 64807 CHOL 317 MG/DL 08/27/2014 Unknown LIPID GROUP 17212 RCHOL/HDL 4.95 RATIO 08/27/2014 Unknow n LIPID GROUP 67724 NON-HDL CH 253 MG/DL 08/27/2014 Unknow n GFR CALC 8758267 GFR AA >60 ML/MIN 08/27/2014 Unknown GFR CALC 9480052 GFR NON-AA >60 ML/MIN 08/27/2014 Unknown COMPLETE BLOOD COUNT 3595369 WBC 7.0 10e9/L 08/27/20 14 Unknown COMPLETE BLOOD COUNT 4769074 RBC 4.98 10e12/L 2013 Unknown COMPLETE BLOOD COUNT 3329124 HGB 15.6 g/dL 4 Unknown COMPLETE BLOOD COUNT 7307740 HCT DET 46.5 % 4 Unknown COMPLETE BLOOD COUNT 5754377 MCV 93.4 fL 4 Unknown COMPLETE BLOOD COUNT 6240414 MCH 31.3 pg 4 Unknown COMPLETE BLOOD COUNT 8656895 MCHC 33.5 g/dL 4 Unknown COMPLETE BLOOD COUNT 4924676 PLT 309 10e9/L 08/27/20 14 Unknown COMPLETE BLOOD COUNT 4614228 MPV 9.6 fL 4 Unknown COMPLETE BLOOD COUNT 4685991 CADEN % 57.2 % 4 Unknown COMPLETE BLOOD COUNT 9225760 LY % 33.2 % 4 Unknown COMPLETE BLOOD COUNT 9124908 MON % 7.3 % 4 Unknown COMPLETE BLOOD COUNT 7233791 EOS % 2.0 % 4 Unknown COMPLETE BLOOD COUNT 4036866 BASO % 0.3 % 4 Unknown COMPLETE BLOOD COUNT 0600578 RDW 13.7 % 4 Unknown COMPLETE BLOOD COUNT 7059181 ABS CADEN 4.00 10e9/L 014 Unknown COMPLETE BLOOD COUNT 8961387 ABS LYMPH 2.32 10e9/L 014 Unknown COMPLETE BLOOD COUNT 0798024 ABS MONO 0.51 10e9/L 014 Unknown COMPLETE BLOOD COUNT 6687037 ABS EOS 0.14 10e9/L 014 Unknown COMPLETE BLOOD COUNT 4207195 ABS BASO 0.02 10e9/L 014 Unknown COMPLETE BLOOD COUNT 4424504 RDW-SD 45.1 fL 4 Unknown COMPREHENSIVE METABOLIC 70103 AST 13 U/L 2013 Unknown COMPREHENSIVE METABOLIC 27891 ALT 11 IU/L 2013 Unknown COMPREHENSIVE METABOLIC 22052 BUN 23 MG/DL 2013 Unknown COMPREHENSIVE METABOLIC 38865 ALBUMIN 4.4 GM/DL 2013 Unknown COMPREHENSIVE METABOLIC 12127 CHLORIDE 99 MMOL/L 2013 Unknown COMPREHENSIVE METABOLIC 38522 BILI TOT 0.5 MG/DL 2013 Unknown COMPREHENSIVE METABOLIC 57204 ALK PHOS 56 U/L 2013 Unknown COMPREHENSIVE METABOLIC 32290 SODIUM 138 MMOL/L 08/27 Unknown COMPREHENSIVE METABOLIC 99378 CREATININE 0.95 MG/DL 08/10 Unknown COMPREHENSIVE METABOLIC 41418 CALCIUM 9.8 MG/DL 2013 Unknown COMPREHENSIVE METABOLIC 57020 POTASSIUM 3.5 MMOL/L 08/27 Unknown COMPREHENSIVE METABOLIC 05870 PROT TOT 6.8 GM/DL 2013 Unknown COMPREHENSIVE METABOLIC 52115 Glucose 90 MG/DL 2013 Unknown COMPREHENSIVE METABOLIC 26890 BICARB 34 MMOL/L 2013 Unknown COMPREHENSIVE METABOLIC 79165 ANION GAP 5 MEQ/L 2013 Unknown LIPASE 00702 LIPASE 11 IU/L 07/21/2014 Unknown AMYLASE 33558 AMYLASE 39 IU/L 07/21/2014 Unknown HEMOGLOBIN A1C (GLYCOSYLATED) 7574749 A1C HPLC 41255-3 6.2 % 03/05/2013 Unknown THYROID STIMULATING HORMONE 84183 TSH 6.986 uIU/ML 03/05/2013 Unknown COMPLETE BLOOD COUNT 2363929 WBC 12.7 10e9/L 013 Unknown COMPLETE BLOOD COUNT 4485611 RBC 4.53 10e12/L 2012 Unknown COMPLETE BLOOD COUNT 7503569 HGB 14.7 g/dL 3 Unknown COMPLETE BLOOD COUNT 4056514 HCT DET 43.1 % 3 Unknown COMPLETE BLOOD COUNT 6510788 MCV 95.1 fL 3 Unknown COMPLETE BLOOD COUNT 0860365 MCH 32.5 pg 3 Unknown COMPLETE BLOOD COUNT 5168482 MCHC 34.1 g/dL 3 Unknown COMPLETE BLOOD COUNT 1008714 PLT 346 10e9/L 03/05/20 13 Unknown COMPLETE BLOOD COUNT 6670134 MPV 9.5 fL 3 Unknown COMPLETE BLOOD COUNT 8584013 CADEN % 67.6 % 3 Unknown COMPLETE BLOOD COUNT 1574181 LY % 22.1 % 3 Unknown COMPLETE BLOOD COUNT 4943245 MON % 6.6 % 3 Unknown COMPLETE BLOOD COUNT 7240532 EOS % 3.3 % 3 Unknown COMPLETE BLOOD COUNT 1848001 BASO % 0.4 % 3 Unknown COMPLETE BLOOD COUNT 4119444 RDW 14.0 % 3 Unknown COMPLETE BLOOD COUNT 3911601 ABS CADEN 8.59 10e9/L 013 Unknown COMPLETE BLOOD COUNT 3968663 ABS LYMPH 2.81 10e9/L 013 Unknown COMPLETE BLOOD COUNT 6094614 ABS MONO 0.84 10e9/L 013 Unknown COMPLETE BLOOD COUNT 7279435 ABS EOS 0.42 10e9/L 013 Unknown COMPLETE BLOOD COUNT 0716507 ABS BASO 0.05 10e9/L 013 Unknown COMPLETE BLOOD COUNT 5929617 RDW-SD 46.0 fL 06/26/201 3 Unknown FREE T4 38644 FREE T4 1.14 NG/DL 03/05/2013 Unknown COMPREHENSIVE METABOLIC 16870 AST 17 U/L 2012 Unknown COMPREHENSIVE METABOLIC 54064 ALT 12 IU/L 2012 Unknown COMPREHENSIVE METABOLIC 01401 BUN 24 MG/DL 2012 Unknown COMPREHENSIVE METABOLIC 22637 ALBUMIN 4.2 GM/DL 2012 Unknown COMPREHENSIVE METABOLIC 87298 CHLORIDE 93 MMOL/L 2012 Unknown COMPREHENSIVE METABOLIC 80183 BILI TOT 0.5 MG/DL 2012 Unknown COMPREHENSIVE METABOLIC 21118 ALK PHOS 75 U/L 2012 Unknown COMPREHENSIVE METABOLIC 65728 SODIUM 141 MMOL/L 03/05 Unknown COMPREHENSIVE METABOLIC 23350 CREATININE 1.36 MG/DL 02/09 Unknown COMPREHENSIVE METABOLIC 28883 CALCIUM 9.2 MG/DL 2012 Unknown COMPREHENSIVE METABOLIC 58783 POTASSIUM 3.1 MMOL/L 03/05 Unknown COMPREHENSIVE METABOLIC 32651 PROT TOT 6.9 GM/DL 2012 Unknown COMPREHENSIVE METABOLIC 99878 Glucose 123 MG/DL 2012 Unknown COMPREHENSIVE METABOLIC 12797 BICARB 36 MMOL/L 2012 Unknown COMPREHENSIVE METABOLIC 97440 ANION GAP 12 MEQ/L 2012 Unknown GFR CALC 2854353 GFR AA 51.0L ML/MIN 03/05/2013 Unknow n GFR CALC 0679844 GFR NON-AA 42.0L ML/MIN 03/05/2013 Unkno wn COMPREHENSIVE METABOLIC 91007 AST 14 U/L 2012 Unknown COMPREHENSIVE METABOLIC 36759 ALT 11 IU/L 2012 Unknown COMPREHENSIVE METABOLIC 30221 BUN 16 MG/DL 2012 Unknown COMPREHENSIVE METABOLIC 79973 ALBUMIN 4.2 GM/DL 2012 Unknown COMPREHENSIVE METABOLIC 88306 CHLORIDE 98 MMOL/L 2012 Unknown COMPREHENSIVE METABOLIC 69071 BILI TOT 0.4 MG/DL 2012 Unknown COMPREHENSIVE METABOLIC 61143 ALK PHOS 77 U/L 2012 Unknown COMPREHENSIVE METABOLIC 97733 SODIUM 139 MMOL/L 09/25 Unknown COMPREHENSIVE METABOLIC 30911 CREATININE 0.86 MG/DL 09/10 Unknown COMPREHENSIVE METABOLIC 91362 CALCIUM 9.5 MG/DL 2012 Unknown COMPREHENSIVE METABOLIC 98125 POTASSIUM 3.8 MMOL/L 09/25 Unknown COMPREHENSIVE METABOLIC 45387 PROT TOT 6.8 GM/DL 2012 Unknown COMPREHENSIVE METABOLIC 17285 Glucose 91 MG/DL 2012 Unknown COMPREHENSIVE METABOLIC 74996 BICARB 32 MMOL/L 2012 Unknown COMPREHENSIVE METABOLIC 80902 ANION GAP 9 MEQ/L 2012 Unknown FREE T4 08428 FREE T4 0.98 NG/DL 09/25/2012 Unknown THYROID STIMULATING HORMONE 63622 TSH 1.736 uIU/ML 09/25/2012 Unknown C-REACTIVE PROTEIN (CRP) QUANT 10388 CRP 2.3 MG/DL 09/25/2012 Unknown COMPLETE BLOOD COUNT [id number] WBC 11.9 10e9/L 013 Unknown COMPLETE BLOOD COUNT 4591332 RBC 4.87 10e12/L 2012 Unknown COMPLETE BLOOD COUNT 2108822 HGB 15.1 g/dL 3 Unknown COMPLETE BLOOD COUNT 4469313 HCT DET 44.8 % 3 Unknown COMPLETE BLOOD COUNT 1545099 MCV 92.0 fL 3 Unknown COMPLETE BLOOD COUNT 3273321 MCH 31.0 pg 3 Unknown COMPLETE BLOOD COUNT 1071830 MCHC 33.7 g/dL 3 Unknown COMPLETE BLOOD COUNT 0986073 PLT 343 10e9/L 09/25/19 13 Unknown COMPLETE BLOOD COUNT 6176153 MPV 9.0 fL 3 Unknown COMPLETE BLOOD COUNT 5264439 CADEN % 68.2 % 3 Unknown COMPLETE BLOOD COUNT 1233524 LY % 22.4 % 3 Unknown COMPLETE BLOOD COUNT 7810881 MON % 6.4 % 3 Unknown COMPLETE BLOOD COUNT 0641383 EOS % 2.7 % 3 Unknown COMPLETE BLOOD COUNT 2413427 BASO % 0.3 % 3 Unknown COMPLETE BLOOD COUNT 3181617 RDW 13.8 % 3 Unknown COMPLETE BLOOD COUNT 8625281 ABS CADEN 8.12 10e9/L 013 Unknown COMPLETE BLOOD COUNT 1829670 ABS LYMPH 2.67 10e9/L 013 Unknown COMPLETE BLOOD COUNT 2097768 ABS MONO 0.76 10e9/L 013 Unknown COMPLETE BLOOD COUNT 9010299 ABS EOS 0.32 10e9/L 013 Unknown COMPLETE BLOOD COUNT 5747666 ABS BASO 0.04 10e9/L 013 Unknown COMPLETE BLOOD COUNT 4792842 RDW-SD 45.6 fL 3 Unknown GFR CALC 2701206 GFR AA >60 ML/MIN 09/25/2012 Unknown GFR CALC 2192092 GFR NON-AA >60 ML/MIN 09/25/2012 Unknown ERYTHROCYTE SEDIMENTATION RATE 87027 ESR 19 MM/HR 05/06/2012 Unknown VITAMIN B 12 FOLIC ACID 59414|10754 VIT B 12 922 PG/ML 04/11 Unknown VITAMIN B 12 FOLIC ACID 21035|07142 FOLIC ACID 13.6 NG/ML Unknown URIC ACID 84417 URIC ACID 7.8 MG/DL 05/06/2012 Unknown COMPLETE BLOOD COUNT 01069 WBC 11.9 10e9/L 012 Unknown COMPLETE BLOOD COUNT 18730 RBC 5.30 10e12/L 2011 Unknown COMPLETE BLOOD COUNT 45750 HGB 16.6 g/dL 2 Unknown COMPLETE BLOOD COUNT 46820 HCT DET 47.2 % 2 Unknown COMPLETE BLOOD COUNT 07518 MCV 89.1 fL 2 Unknown COMPLETE BLOOD COUNT 87344 MCH 31.3 pg 2 Unknown COMPLETE BLOOD COUNT 62442 MCHC 35.2 g/dL 2 Unknown COMPLETE BLOOD COUNT 26203 PLT 362 10e9/L 05/06/20 12 Unknown COMPLETE BLOOD COUNT 23637 MPV 9.4 fL 2 Unknown COMPLETE BLOOD COUNT 09405 CADEN % 68.2 % 2 Unknown COMPLETE BLOOD COUNT 09656 LY % 22.0 % 2 Unknown COMPLETE BLOOD COUNT 57503 MON % 6.9 % 2 Unknown COMPLETE BLOOD COUNT 19581 EOS % 2.6 % 2 Unknown COMPLETE BLOOD COUNT 02125 BASO % 0.3 % 2 Unknown COMPLETE BLOOD COUNT 19791 RDW 12.8 % 2 Unknown COMPLETE BLOOD COUNT 22954 ABS CADEN 8.12 10e9/L 012 Unknown COMPLETE BLOOD COUNT 29754 ABS LYMPH 2.62 10e9/L 08/27/2 012 Unknown COMPLETE BLOOD COUNT 71621 ABS MONO 0.82 10e9/L 012 Unknown COMPLETE BLOOD COUNT 17220 ABS EOS 0.31 10e9/L 012 Unknown COMPLETE BLOOD COUNT 35323 ABS BASO 0.04 10e9/L 012 Unknown COMPLETE BLOOD COUNT 76659 RDW-SD 41.5 fL 2 Unknown GFR CALC 9699685 GFR AA >60 ML/MIN 05/06/2012 Unknown GFR CALC 3929557 GFR NON-AA 58.0L ML/MIN 05/06/2012 Unkno wn FREE T4 78158 FREE T4 1.15 NG/DL 05/06/2012 Unknown THYROID STIMULATING HORMONE 93483 TSH 1.568 uIU/ML 05/06/2012 Unknown COMPREHENSIVE METABOLIC 50418 AST 20 U/L 2011 Unknown COMPREHENSIVE METABOLIC 75068 ALT 12 IU/L 2011 Unknown COMPREHENSIVE METABOLIC 69578 BUN 20 MG/DL 2011 Unknown COMPREHENSIVE METABOLIC 86515 ALBUMIN 4.5 GM/DL 2011 Unknown COMPREHENSIVE METABOLIC 16988 CHLORIDE 91 MMOL/L 2011 Unknown COMPREHENSIVE METABOLIC 33203 BILI TOT 0.4 MG/DL 2011 Unknown COMPREHENSIVE METABOLIC 83266 ALK PHOS 73 U/L 2011 Unknown COMPREHENSIVE METABOLIC 59620 SODIUM 139 MMOL/L 05/06 Unknown COMPREHENSIVE METABOLIC 57061 CREATININE 1.02 MG/DL 04/11 Unknown COMPREHENSIVE METABOLIC 18858 CALCIUM 9.7 MG/DL 2011 Unknown COMPREHENSIVE METABOLIC 67425 POTASSIUM 3.1 MMOL/L 05/06 Unknown COMPREHENSIVE METABOLIC 30610 PROT TOT 7.3 GM/DL 2011 Unknown COMPREHENSIVE METABOLIC 49313 Glucose 118 MG/DL 2011 Unknown COMPREHENSIVE METABOLIC 31490 BICARB 33 MMOL/L 2011 Unknown COMPREHENSIVE METABOLIC 96455 ANION GAP 15 MEQ/L 2011 Unknown Procedures Procedure Codes Date ROUTINE VENIPUNCTURE CPT-4: 57135 09/29/2019 URINALYSIS NONAUTO W/O SCOPE CPT-4: 15782 09/29/2019 COMPREHEN METABOLIC PANEL CPT-4: 91591 09/29/2019 LIPID PANEL CPT-4: 48127 09/29/2019 A1C HPLC CPT-4: 59701 09/29/2019 ASSAY OF FREE THYROXINE CPT-4: 62757 09/29/2019 ASSAY THYROID STIM HORMONE CPT-4: 57222 09/29/2019 COMPLETE CBC W/AUTO DIFF WBC CPT-4: 89833 09/29/2019 URINALYSIS NONAUTO W/O SCOPE CPT-4: 81971 09/30/2018 MICROALBUMIN QUANTITATIVE CPT-4: 13170 09/30/2018 CEFTRIAXONE SODIUM INJECTION CPT-4: J0696 06/19/2018 THER/PROPH/DIAG INJ SC/IM CPT-4: 59491 06/19/2018 CEFTRIAXONE SODIUM INJECTION CPT-4: J0696 06/17/2018 THER/PROPH/DIAG INJ SC/IM CPT-4: 68577 06/17/2018 THER/PROPH/DIAG INJ SC/IM CPT-4: 19377 05/16/2018 KETOROLAC TROMETHAMINE INJ CPT-4: J1885 05/16/2018 ONDANSETRON HCL INJECTION CPT-4: J2405 05/16/2018 THER/PROPH/DIAG INJ SC/IM CPT-4: 86079 05/16/2018 ROUTINE VENIPUNCTURE CPT-4: 24355 03/20/2018 COMPREHEN METABOLIC PANEL CPT-4: 68627 03/20/2018 DEXAMETHASONE SODIUM PHOS CPT-4: J1100 02/11/2018 THER/PROPH/DIAG INJ SC/IM CPT-4: 12913 02/11/2018 TRIAMCINOLONE ACET INJ NOS CPT-4: J3301 02/11/2018 CEFTRIAXONE SODIUM INJECTION CPT-4: J0696 02/01/2018 THER/PROPH/DIAG INJ SC/IM CPT-4: 18873 02/01/2018 CEFTRIAXONE SODIUM INJECTION CPT-4: J0696 01/30/2018 THER/PROPH/DIAG INJ SC/IM CPT-4: 05733 01/30/2018 ROUTINE VENIPUNCTURE CPT-4: 10826 12/10/2017 ASSAY OF FREE THYROXINE CPT-4: 21780 12/10/2017 ASSAY THYROID STIM HORMONE CPT-4: 25480 12/10/2017 COMPREHEN METABOLIC PANEL CPT-4: 16776 12/10/2017 COMPLETE CBC W/AUTO DIFF WBC CPT-4: 71841 12/10/2017 LIPID PANEL CPT-4: 06077 12/10/2017 A1C HPLC CPT-4: 40970 12/10/2017 CEFTRIAXONE SODIUM INJECTION CPT-4: J0696 12/10/2017 THER/PROPH/DIAG INJ SC/IM CPT-4: 62696 12/10/2017 CEFTRIAXONE SODIUM INJECTION CPT-4: J0696 12/07/2017 THER/PROPH/DIAG INJ SC/IM CPT-4: 17440 12/07/2017 DEXAMETHASONE SODIUM PHOS CPT-4: J1100 12/07/2017 THER/PROPH/DIAG INJ SC/IM CPT-4: 16211 12/07/2017 CEFTRIAXONE SODIUM INJECTION CPT-4: J0696 10/08/2017 THER/PROPH/DIAG INJ SC/IM CPT-4: 87639 10/08/2017 CEFTRIAXONE SODIUM INJECTION CPT-4: J0696 09/21/2017 THER/PROPH/DIAG INJ SC/IM CPT-4: 77538 09/21/2017 CEFTRIAXONE SODIUM INJECTION CPT-4: J0696 09/20/2017 THER/PROPH/DIAG INJ SC/IM CPT-4: 04875 09/20/2017 REMOVAL OF NAIL PLATE CPT-4: 10144 08/29/2017 THER/PROPH/DIAG INJ SC/IM CPT-4: 14953 08/29/2017 TRIAMCINOLONE ACET INJ NOS CPT-4: J3301 08/29/2017 CEFTRIAXONE SODIUM INJECTION CPT-4: J0696 08/29/2017 THER/PROPH/DIAG INJ SC/IM CPT-4: 87560 08/29/2017 DESTRUCT PREMALG LESION (Cryosurgery) CPT-4: 25193 ROUTINE VENIPUNCTURE CPT-4: 13212 06/27/2017 ASSAY OF FREE THYROXINE CPT-4: 95408 06/27/2017 ASSAY THYROID STIM HORMONE CPT-4: 58148 06/27/2017 COMPREHEN METABOLIC PANEL CPT-4: 46993 06/27/2017 COMPLETE CBC W/AUTO DIFF WBC CPT-4: 57857 06/27/2017 EXC TR-EXT B9+REECE 0.5 CM< CPT-4: 74859 01/24/2017 THER/PROPH/DIAG INJ SC/IM CPT-4: 99142 08/02/2016 DEXAMETHASONE SODIUM PHOS CPT-4: J1100 08/02/2016 DESTRUCT PREMALG LESION (Cryosurgery) CPT-4: 38155 EXC TR-EXT B9+REECE 0.5 CM< CPT-4: 70105 08/01/2016 AEROBIC WOUND CULTURE & STN CPT-4: 93651 07/06/2016 CEFTRIAXONE SODIUM INJECTION CPT-4: J0696 05/25/2016 THER/PROPH/DIAG INJ SC/IM CPT-4: 33592 05/25/2016 THER/PROPH/DIAG INJ SC/IM CPT-4: 54863 04/26/2016 DEXAMETHASONE SODIUM PHOS CPT-4: J1100 04/26/2016 CEFTRIAXONE SODIUM INJECTION CPT-4: J0696 04/26/2016 THER/PROPH/DIAG INJ SC/IM CPT-4: 88669 04/26/2016 THER/PROPH/DIAG INJ SC/IM CPT-4: 57155 02/09/2016 TRIAMCINOLONE ACET INJ NOS CPT-4: J3301 02/09/2016 URINALYSIS NONAUTO W/O SCOPE CPT-4: 66511 01/24/2016 URINE CULTURE/ COLONY COUNT CPT-4: 23066 01/24/2016 THER/PROPH/DIAG INJ SC/IM CPT-4: 15712 12/08/2015 TRIAMCINOLONE ACET INJ NOS CPT-4: J3301 12/08/2015 THER/PROPH/DIAG INJ SC/IM CPT-4: 70145 10/07/2015 TRIAMCINOLONE ACET INJ NOS CPT-4: J3301 10/07/2015 DESTRUCT PREMALG LESION (Cryosurgery) CPT-4: 09474 THER/PROPH/DIAG INJ SC/IM CPT-4: 19768 03/16/2015 METHYLPREDNISOLONE 40 MG INJ CPT-4: J1030 03/16/2015 DESTRUCT PREMALG LESION (Cryosurgery) CPT-4: 01061 THER/PROPH/DIAG INJ SC/IM CPT-4: 53356 09/11/2014 METHYLPREDNISOLONE 40 MG INJ CPT-4: J1030 09/11/2014 TRIAMCINOLONE ACET INJ NOS CPT-4: J3301 09/11/2014 CEFTRIAXONE SODIUM INJECTION CPT-4: J0696 09/11/2014 THER/PROPH/DIAG INJ SC/IM CPT-4: 05697 09/11/2014 ROUTINE VENIPUNCTURE CPT-4: 27533 08/27/2014 COMPREHEN METABOLIC PANEL CPT-4: 57624 08/27/2014 COMPLETE CBC W/AUTO DIFF WBC CPT-4: 94628 08/27/2014 LIPID PANEL CPT-4: 62599 08/27/2014 ROUTINE VENIPUNCTURE CPT-4: 19019 07/21/2014 ASSAY OF AMYLASE CPT-4: 06548 07/21/2014 ASSAY OF LIPASE CPT-4: 19144 07/21/2014 THER/PROPH/DIAG INJ SC/IM CPT-4: 39483 07/15/2014 TRIAMCINOLONE ACET INJ NOS CPT-4: J3301 07/15/2014 ROUTINE VENIPUNCTURE CPT-4: 45827 05/14/2014 ASSAY OF FREE THYROXINE CPT-4: 53836 05/14/2014 ASSAY THYROID STIM HORMONE CPT-4: 82423 05/14/2014 COMPREHEN METABOLIC PANEL CPT-4: 63476 05/14/2014 COMPLETE CBC W/AUTO DIFF WBC CPT-4: 94246 05/14/2014 LIPID PANEL CPT-4: 37179 05/14/2014 CEFTRIAXONE SODIUM INJECTION CPT-4: J0696 04/21/2014 THER/PROPH/DIAG INJ SC/IM CPT-4: 93339 04/21/2014 THER/PROPH/DIAG INJ SC/IM CPT-4: 07032 04/21/2014 TRIAMCINOLONE ACET INJ NOS CPT-4: J3301 04/21/2014 THER/PROPH/DIAG INJ SC/IM CPT-4: 98072 03/04/2014 METHYLPREDNISOLONE 40 MG INJ CPT-4: J1030 03/04/2014 TRIAMCINOLONE ACET INJ NOS CPT-4: J3301 03/04/2014 CEFTRIAXONE SODIUM INJECTION CPT-4: J0696 03/04/2014 THER/PROPH/DIAG INJ SC/IM CPT-4: 85390 03/04/2014 TDAP VACCINE 7 YRS/> IM CPT-4: 40194 02/27/2014 IMMUNIZATION ADMIN CPT-4: 60368 02/27/2014 DESTRUCT PREMALG LESION (Cryosurgery) CPT-4: 63428 DESTRUCT PREMALG LES 2-14 CPT-4: 43428 01/13/2014 THER/PROPH/DIAG INJ SC/IM CPT-4: 20451 10/21/2013 METHYLPREDNISOLONE 40 MG INJ CPT-4: J1030 10/21/2013 TRIAMCINOLONE ACET INJ NOS CPT-4: J3301 10/21/2013 CEFTRIAXONE SODIUM INJECTION CPT-4: J0696 08/27/2013 THER/PROPH/DIAG INJ SC/IM CPT-4: 24328 08/27/2013 THER/PROPH/DIAG INJ SC/IM CPT-4: 94394 08/27/2013 METHYLPREDNISOLONE 40 MG INJ CPT-4: J1030 08/27/2013 TRIAMCINOLONE ACET INJ NOS CPT-4: J3301 08/27/2013 THER/PROPH/DIAG INJ SC/IM CPT-4: 10767 06/23/2013 METHYLPREDNISOLONE 40 MG INJ CPT-4: J1030 06/23/2013 TRIAMCINOLONE ACET INJ NOS CPT-4: J3301 06/23/2013 THER/PROPH/DIAG INJ SC/IM CPT-4: 38715 05/26/2013 METHYLPREDNISOLONE 40 MG INJ CPT-4: J1030 05/26/2013 TRIAMCINOLONE ACET INJ NOS CPT-4: J3301 05/26/2013 ROUTINE VENIPUNCTURE CPT-4: 15238 03/05/2013 ASSAY OF FREE THYROXINE CPT-4: 17967 03/05/2013 ASSAY THYROID STIM HORMONE CPT-4: 92204 03/05/2013 COMPREHEN METABOLIC PANEL CPT-4: 06140 03/05/2013 COMPLETE CBC W/AUTO DIFF WBC CPT-4: 35856 03/05/2013 A1C GLYCOSYLATED HEMOGLOBIN TEST CPT-4: 32984 013 DRAIN/INJECT JOINT/BURSA CPT-4: 44455 12/04/2012 METHYLPREDNISOLONE 40 MG INJ CPT-4: J1030 12/04/2012 TRIAMCINOLONE ACET INJ NOS CPT-4: J3301 12/04/2012 CEFTRIAXONE SODIUM INJECTION CPT-4: J0696 11/21/2012 THER/PROPH/DIAG INJ SC/IM CPT-4: 87324 11/21/2012 THER/PROPH/DIAG INJ SC/IM CPT-4: 19576 10/14/2012 METHYLPREDNISOLONE 40 MG INJ CPT-4: J1030 10/14/2012 TRIAMCINOLONE ACET INJ NOS CPT-4: J3301 10/14/2012 URINALYSIS NONAUTO W/O SCOPE CPT-4: 16581 09/27/2012 ROUTINE VENIPUNCTURE CPT-4: 45677 09/25/2012 ASSAY OF FREE THYROXINE CPT-4: 11433 09/25/2012 ASSAY THYROID STIM HORMONE CPT-4: 19834 09/25/2012 COMPREHEN METABOLIC PANEL CPT-4: 51867 09/25/2012 COMPLETE CBC W/AUTO DIFF WBC CPT-4: 74660 09/25/2012 C-REACTIVE PROTEIN CPT-4: 03661 09/25/2012 THER/PROPH/DIAG INJ SC/IM CPT-4: 22105 08/29/2012 METHYLPREDNISOLONE 40 MG INJ CPT-4: J1030 08/29/2012 TRIAMCINOLONE ACET INJ NOS CPT-4: J3301 08/29/2012 DESTRUCT PREMALG LESION (Cryosurgery) CPT-4: 06410 THER/PROPH/DIAG INJ SC/IM CPT-4: 25147 05/06/2012 METHYLPREDNISOLONE 40 MG INJ CPT-4: J1030 05/06/2012 TRIAMCINOLONE ACET INJ NOS CPT-4: J3301 05/06/2012 VITAMIN B 12 FOLIC ACID CPT-4: 49046|55386 05/06/2012 RBC SED RATE AUTOMATED CPT-4: 65427 05/06/2012 ROUTINE VENIPUNCTURE CPT-4: 18147 05/06/2012 ASSAY OF FREE THYROXINE CPT-4: 23761 05/06/2012 ASSAY THYROID STIM HORMONE CPT-4: 46900 05/06/2012 COMPREHEN METABOLIC PANEL CPT-4: 92641 05/06/2012 COMPLETE CBC W/AUTO DIFF WBC CPT-4: 40012 05/06/2012 ASSAY OF BLOOD/URIC ACID CPT-4: 75580 05/06/2012 THER/PROPH/DIAG INJ SC/IM CPT-4: 75349 03/19/2012 KETOROLAC TROMETHAMINE INJ CPT-4: J1885 03/19/2012 KETOROLAC TROMETHAMINE INJ CPT-4: J1885 01/30/2012 THER/PROPH/DIAG INJ SC/IM CPT-4: 23196 01/30/2012 PROMETHAZINE HCL INJECTION CPT-4: J2550 01/30/2012 THER/PROPH/DIAG INJ SC/IM CPT-4: 95794 01/24/2012 METHYLPREDNISOLONE 40 MG INJ CPT-4: J1030 01/24/2012 TRIAMCINOLONE ACET INJ NOS CPT-4: J3301 01/24/2012 THER/PROPH/DIAG INJ SC/IM CPT-4: 04592 09/13/2011 KETOROLAC TROMETHAMINE INJ CPT-4: J1885 09/13/2011 THER/PROPH/DIAG INJ SC/IM CPT-4: 73023 09/13/2011 PROMETHAZINE HCL INJECTION CPT-4: J2550 09/13/2011 CEFTRIAXONE SODIUM INJECTION CPT-4: J0696 07/20/2011 THER/PROPH/DIAG INJ SC/IM CPT-4: 96109 07/20/2011 THER/PROPH/DIAG INJ SC/IM CPT-4: 28684 07/20/2011 METHYLPREDNISOLONE INJECTION CPT-4: J2930 07/20/2011 URINALYSIS NONAUTO W/O SCOPE CPT-4: 34366 05/09/2011 CEFTRIAXONE SODIUM INJECTION CPT-4: J0696 05/09/2011 THER/PROPH/DIAG INJ SC/IM CPT-4: 08123 05/09/2011 THER/PROPH/DIAG INJ SC/IM CPT-4: 11982 05/09/2011 PROMETHAZINE HCL INJECTION CPT-4: J2550 05/09/2011 HYDRATION IV INFUSION INIT CPT-4: 78994 05/09/2011 DESTRUCT PREMALG LESION (Cryosurgery) CPT-4: 76558 DESTRUCT PREMALG LES 2-14 CPT-4: 52703 07/19/2010 REMOVAL OF SKIN TAGS <W/15 CPT-4: 28879 05/30/2010 THER/PROPH/DIAG INJ SC/IM CPT-4: 52824 04/05/2010 CEFTRIAXONE SODIUM INJECTION CPT-4: J0696 04/05/2010 TRIAMCINOLONE ACET INJ NOS CPT-4: J3301 04/05/2010 METHYLPREDNISOLONE 40 MG INJ CPT-4: J1030 04/05/2010 THER/PROPH/DIAG INJ SC/IM CPT-4: 97124 04/05/2010 TRIAMCINOLONE ACET INJ NOS CPT-4: J3301 03/09/2010 METHYLPREDNISOLONE 40 MG INJ CPT-4: J1030 03/09/2010 THER/PROPH/DIAG INJ SC/IM CPT-4: 56084 03/09/2010 THER/PROPH/DIAG INJ SC/IM CPT-4: 88440 03/09/2010 CEFTRIAXONE SODIUM INJECTION CPT-4: J0696 03/09/2010 Vital Signs Date Vital 10/07/2019 Blood Pressure 1: 134/82 Code: 8480-6 Heart Rate 1: 105 bpm Respiratory Rate: 17 bpm SpO2: 96% Temperature: 36.8 (C) / 98.2 (F) We ight: 198 lbs 09/30/2019 Blood Pressure 1: 132/80 Code: 8480-6 BMI: 35.8 Code: 20509-8 Heart Rate 1: 88 bpm Height: 5'4" Respiratory Rate: 20 bpm SpO2: 95% Tempera ture: 36.9 (C) / 98.5 (F) Weight: 210 lbs 05/28/2019 Blood Pressure 1: 126/82 Code: 8480-6 BMI: 35.0 Code: 14679-2 Heart Rate 1: 88 bpm Height: 5'4" [...] 1: 128/90 Code: 8480-6 BMI: 37.2 Code: 70317-8 Heart Rate 1: 84 bpm Height: 5'4" Respiratory Rate: 20 bpm SpO2: 95% Tempera ture: 36.6 (C) / 97.8 (F) Weight: 217 lbs 08/27/2018 Blood Pressure 1: 128/88 Code: 8480-6 BMI: 38.3 Code: 43055-1 Heart Rate 1: 84 bpm Height: 5'4" [...] 1: 119/72 Code: 8480-6 BMI: 37.4 Code: 08736-6 Heart Rate 1: 82 bpm Height: 5'4" Respiratory Rate: 12 bpm SpO2: 94% Tempera ture: 35.2 (C) / 95.4 (F) Weight: 218 lbs 12/18/2017 Blood Pressure 1: 128/86 Code: 8480-6 BMI: 37.8 Code: 12792-1 Heart Rate 1: 84 bpm Height: 5'4" [...] 1: 128/82 Code: 8480-6 BMI: 35.5 Code: 56533-4 Heart Rate 1: 84 bpm Height: 5'4" [...] 1: 128/82 Code: 8480-6 BMI: 30.2 Code: 21950-9 Heart Rate 1: 80 bpm Height: 5'4" [...] 1: 128/86 Code: 8480-6 BMI: 32.8 Code: 65391-9 Heart Rate 1: 66 bpm Height: 5'4" Respiratory Rate: 18 bpm Temperature: 36 .3 (C) / 97.3 (F) Weight: 191 lbs 06/23/2013 Blood Pressure 1: 132/94 Code: 8480-6 BMI: 34.0 Code: 62655-4 Heart Rate 1: 84 bpm Height: 5'4" Respiratory Rate: 20 bpm Temperature: 36 .8 (C) / 98.2 (F) Weight: 198 lbs 05/26/2013 Blood Pressure 1: 114/80 Code: 8480-6 BMI: 35.0 Code: 42249-1 Heart Rate 1: 80 bpm Height: 5'4" Respiratory Rate: 20 bpm Temperature: 36 .4 (C) / 97.6 (F) Weight: 204 lbs 04/16/2013 Blood Pressure 1: 114/82 Code: 8480-6 BMI: 36.7 Code: 15713-3 Heart Rate 1: 84 bpm Height: 5'4" Respiratory Rate: 20 bpm Temperature: 36 .7 (C) / 98.0 (F) Weight: 214 lbs 03/05/2013 Blood Pressure 1: 136/90 Code: 8480-6 BMI: 37.1 Code: 51852-5 Heart Rate 1: 84 bpm Height: 5'4" [...] 1: 168/114 Code: 8480-6 BMI: 36.2 Code: 59559-8 Heart Rate 1: 104 bpm Height: 5'4" Respiratory Rate: 20 bpm Temperature: 36 .8 (C) / 98.2 (F) Weight: 211 lbs 11/22/2012 Blood Pressure 1: 128/90 Code: 8480-6 Heart Rate 1: 88 bpm Respiratory Rate: 20 bpm SpO2: 96% Temperature: 36.8 (C) / 98.2 (F) 11/21/2012 Blood Pressure 1: 146/100 Code: 8480-6 BMI: 35.7 Code: 06122-9 Heart Rate 1: 96 bpm Height: 5'4" [...] 1: 138/100 Code: 8480-6 BMI: 35.7 Code: 16268-3 Heart Rate 1: 96 bpm Height: 5'4" Respiratory Rate: 20 bpm Temperature: 36 .8 (C) / 98.2 (F) Weight: 208 lbs 05/06/2012 Blood Pressure 1: 154/102 Code: 8480-6 BMI: 34.7 Code: 96802-3 Heart Rate 1: 116 bpm Height: 5'4" Respiratory Rate: 20 bpm Temperature: 36 .8 (C) / 98.2 (F) Weight: 202 lbs 04/03/2012 Blood Pressure 1: 134/94 Code: 8480-6 BMI: 34.8 Code: 83503-9 Heart Rate 1: 108 bpm Height: 5'4" Respiratory Rate: 20 bpm Temperature: 36 .8 (C) / 98.2 (F) Weight: 203 lbs 03/19/2012 Blood Pressure 1: 148/106 Code: 8480-6 BMI: 35.0 Code: 80050-9 Heart Rate 1: 100 bpm Height: 5'4" Respiratory Rate: 20 bpm Temperature: 36 .6 (C) / 97.9 (F) Weight: 204 lbs 02/22/2012 Blood Pressure 1: 146/94 Code: 8480-6 He art Rate 1: 88 bpm 02/21/2012 Blood Pressure 1: 172/120 Code: 8480-6 B lood Pressure 2: 152/106 Code: 8480-6 Heart Rate 1: 116 bpm 02/20/2012 Blood Pressure 1: 160/100 Code: 8480-6 BMI: 32.0 Code: 92968-4 Heart Rate 1: 84 bpm Height: 5'7" Temperature: 36.5 (C) / 97.7 (F) Weight: 204 lbs 01/30/2012 Blood Pressure 1: 152/110 Code: 8480-6 BMI: 32.0 Code: 43002-3 Heart Rate 1: 116 bpm Height: 5'7" Respiratory Rate: 20 bpm Temperature: 37 .0 (C) / 98.6 (F) Weight: 204 lbs 01/24/2012 Blood Pressure 1: 146/100 Code: 8480-6 BMI: 32.0 Code: 01511-9 Heart Rate 1: 100 bpm Height: 5'7" Respiratory Rate: 20 bpm Temperature: 36 .7 (C) / 98.0 (F) Weight: 204 lbs 01/10/2012 Blood Pressure 1: 156/94 Code: 8480-6 BMI: 32.6 Code: 50433-7 Heart Rate 1: 72 bpm Height: 5'7" Respiratory Rate: 20 bpm Temperature: 36 .8 (C) / 98.2 (F) Weight: 208 lbs 12/11/2011 Blood Pressure 1: 146/100 Code: 8480-6 Heart Rat e 1: 116 bpm Height: 5'7" Respiratory Rate: 20 bpm Temperature: 36.9 (C) / 98.4 (F) We ight: 11/09/2011 Blood Pressure 1: 148/96 Code: 8480-6 BMI: 32.1 Code: 96685-1 Heart Rate 1: 116 bpm Height: 5'7" Respiratory Rate: 20 bpm Temperature: 36 .7 (C) / 98.0 (F) Weight: 205 lbs 09/13/2011 Blood Pressure 1: 126/88 Code: 8480-6 Heart Rate 1: 88 bpm Height: 5'7" Respiratory Rate: 20 bpm Temperature: 36.9 (C) / 98.4 (F) We ight: 08/31/2011 Blood Pressure 1: 118/82 Code: 8480-6 BMI: 32.0 Code: 77809-4 Heart Rate 1: 80 bpm Height: 5'7" Temperature: 36.4 (C) / 97.6 (F) Weight: 204 lbs 07/06/2011 Blood Pressure 1: 128/86 Code: 8480-6 BMI: 30.9 Code: 29352-6 Heart Rate 1: 92 bpm Height: 5'7" Respiratory Rate: 20 bpm Temperature: 36 .9 (C) / 98.4 (F) Weight: 197 lbs 06/06/2011 Blood Pressure 1: 112/74 Code: 8480-6 BMI: 31.0 Code: 88115-2 Heart Rate 1: 72 bpm Height: 5'7" [...] 1: 128/92 Code: 8480-6 BMI: 33.6 Code: 94611-6 Heart Rate 1: 104 bpm Height: 5'4" [...] insomnia 01/24/2016 cough 12/23/2015 patient is chante agustin malin and steroid injection chest congestion 12/08/2015 [...] from ER follow up 11/22/[address] Appaih cough 11/21/2012 Was evaluated in ER and [...] Check-up Encounters Encounter Performer Location Codes Date ([id number]) OFFICE/OUTPATIENT VISIT EST Diagnosis: Ingrowing nail[ICD10: L60.0] Diagnosis: Type 2 diabetes mellitus with hyperglycemia[ICD10: E11.65] Kathleen Zuniga MARÍA ELENA Hicks [employer] [facility] CPT-4: 29061 10/07/2019 ([id number]) OFFICE/OUTPATIENT VISIT EST Diagnosis: DM w/o complication type II, uncontrolled[ICD10: E11.65] Diagnosis: Hypertriglyceridemia[ICD10: E78.1] Diagnosis: Essential hypertension[ICD10: I10] María Elena JEAN [employer] SEAMUSYESIVICTORINO [facility] CPT-4: 52283 09/30/2019 ([id number]) NURSE/OUTPATIENT VISIT EST Diagnosis: Essential (primary) hypertension[ICD10: I10] Diagnosis: Cervicalgia[ICD10: M54.2] Diagnosis: Hyperglycemia, unspecified[ICD10: R73.9] Diagnosis: Mixed hyperlipidemia[ICD10: E78.2] Marí aElena JEAN [employer] CPT-4: 86596 09/29/2019 ([id number]) OFFICE/OUTPATIENT VISIT EST Diagnosis: Essential (primary) hypertension[ICD10: I10] Diagnosis: Fall from bed, sequela[ICD10: W06.XXXS] María Elena Hicks SEAMUSDAWN [facility] CPT-4: 03754 05/28/2019 ([id number]) NURSE/OUTPATIENT VISIT EST Diagnosis: Essential (primary) hypertension[ICD10: I10] María Elena Hicks [facility]DA[facility] CPT-4: 84982 05/19/2019 ([id number]) OFFICE/OUTPATIENT VISIT EST Diagnosis: Essential (primary) hypertension[ICD10: I10] Diagnosis: Type 2 diabetes mellitus with hyperglycemia[ICD10: E11.65] Diagnosis: Intervertebral disc disorders with radiculopathy, 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] Diagnosis: Hormone replacement therapy[ICD10: Z79.890] María Elena Hicks [employer] CPT-4: 61328 01/22/2019 ([id number]) OFFICE/OUTPATIENT VISIT EST Diagnosis: Essential (primary) hypertension[ICD10: I10] Diagnosis: Type 2 diabetes mellitus with hyperglycemia[ICD10: E11.65] María Elena [facility] CPT-4: 20899 09/30/2018 ([id number]) OFFICE/OUTPATIENT VISIT EST Diagnosis: Pain in left elbow[ICD10: M25.522] Diagnosis: Acute stress reaction[ICD10: F43.0] Diagnosis: Primary insomnia[ICD10: F51.01] Diagnosis: Abnormal weight gain[ICD10: R63.5] María Elena Td [facility] CPT-4: 58038 08/27/2018 ([id number]) OFFICE/OUTPATIENT VISIT EST Diagnosis: Acute recurrent sinusitis, unspecified[ICD10: J01.91] Diagnosis: Follicular disorder, unspecified[ICD10: L73.9] Diagnosis: Tinea corporis[ICD10: B35.4] María Elena [facility] CPT-4: 29541 08/09/2018 ([id number]) OFFICE/OUTPATIENT VISIT EST Diagnosis: Tinea corporis[ICD10: B35.4] Diagnosis: Anxiety disorder, unspecified[ICD10: F41.9] Diagnosis: Menopausal and female climacteric states[ICD10: N95.1] María Elena [facility] CPT-4: 77123 07/22/2018 ([id number]) NURSE/OUTPATIENT VISIT EST Diagnosis: Cellulitis of right toe[ICD10: L03.031] María Elenagael Appiah KYLAH [facility] CPT-4: 04470 06/19/2018 ([id number]) OFFICE/OUTPATIENT VISIT EST Diagnosis: Cellulitis of right toe[ICD10: L03.031] Kathleen Tenadi KYLAH [facility] CPT-4: 67637 06/17/2018 ([id number]) OFFICE/OUTPATIENT VISIT EST Diagnosis: Migraine without aura, intractable, without status migrainosus[ICD10: G43.019] Diagnosis: Zoster without complications[ICD10: B02.9] Kathleen [facility] DO [facility] CPT-4: 09139 05/16/2018 ([id number]) OFFICE/OUTPATIENT VISIT EST Diagnosis: Cellulitis of right lower limb[ICD10: L03.115] Kathleen [facility] DO [facility] CPT-4: 38063 03/20/2018 ([id number]) OFFICE/OUTPATIENT VISIT EST Diagnosis: Cellulitis of right lower limb[ICD10: L03.115] Kathleen [facility] DO [facility] CPT-4: 78054 03/18/2018 ([id number]) OFFICE/OUTPATIENT VISIT EST Diagnosis: Cellulitis of right lower limb[ICD10: L03.115] Kathleen [facility] DO [facility] CPT-4: 31974 03/15/2018 ([id number]) OFFICE/OUTPATIENT VISIT EST Diagnosis: Acute sinusitis, unspecified[ICD10: J01.90] Kathleen [facility] DO [facility] CPT-4: 25475 02/11/2018 ([id number]) NURSE/OUTPATIENT VISIT EST Diagnosis: Otitis media, unspecified, right ear[ICD10: H66.91] María Elena [facility] CPT-4: 30693 02/01/2018 ([id number]) OFFICE/OUTPATIENT VISIT EST Diagnosis: Acute suppurative otitis media without spontaneous rupture of ear drum, left ear[ICD10: H66.002] Diagnosis: Abnormal weight gain[ICD10: R63.5] Diagnosis: Intervertebral disc disorders with radiculopathy, 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] Kathleen [facility] DO [facility] CPT-4: 99 214 01/30/2018 ([id number]) PREV VISIT EST AGE 40-64 Diagnosis: Encounter for general adult medical examination without abnormal findings[ICD10: Z00.00] Diagnosis: Essential (primary) hypertension[ICD10: I10] Diagnosis: Mixed hyperlipidemia[ICD10: E78.2] Diagnosis: Type 2 diabetes mellitus with hyperglycemia[ICD10: E11.65] Diagnosis: 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] María Elena [facility] DO [facility] CPT-4: 17708 12/18/2017 ([id number]) OFFICE/OUTPATIENT VISIT EST Diagnosis: Cellulitis of right toe[ICD10: L03.031] Diagnosis: Mixed hyperlipidemia[ICD10: E78.2] Diagnosis: Essential (primary) hypertension[ICD10: I10] Diagnosis: Hyperglycemia, unspecified[ICD10: R73.9] Diagnosis: Nontoxic goiter, 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] María Elena [facility] CPT-4: 13707 12/10/2017 ([id number]) OFFICE/OUTPATIENT VISIT EST Diagnosis: Cellulitis of right toe[ICD10: L03.031] Diagnosis: Acute sinusitis, unspecified[ICD10: J01.90] Kathleen [facility] DO [facility] CPT-4: 20549 12/07/2017 OFFICE/OUTPATIENT VISIT EST Diagnosis: Acute maxillary sinusitis, unspecified[ICD10: J01.00] Kathleen [facility] DO [facility] CPT-4: 09305 10/08/2017 ([id number]) OFFICE/OUTPATIENT VISIT EST Diagnosis: Cellulitis of left toe[ICD10: L03.032] María Elena [facility] CPT-4: 14928 09/21/2017 ([id number]) OFFICE/OUTPATIENT VISIT EST Diagnosis: Insomnia, unspecified[ICD10: G47.00] Diagnosis: Major depressive disorder, single episode, unspecified[ICD10: F32.9] Diagnosis: Anxiety disorder, unspecified[ICD10: F41.9] Diagnosis: Cellulitis of left toe[ICD10: L03.032] Diagnosis: Snoring[ICD10: R06.83] Kathleen [facility] DO [facility] CPT-4: 89797 09/20/2017 ([id number]) OFFICE/OUTPATIENT VISIT EST Diagnosis: Cellulitis of left toe[ICD10: L03.032] María Elena [facility] CPT-4: 53275 07/19/2017 OFFICE/OUTPATIENT VISIT EST Diagnosis: Chronic sinusitis, unspecified[ICD10: J32.9] Diagnosis: Generalized hyperhidrosis[ICD10: R61] Kathleen APPIAH [employer] [facility] CPT-4: 42349 06/27/2017 ([id number]) OFFICE/OUTPATIENT VISIT EST Diagnosis: Intervertebral disc disorders with radiculopathy, 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] Diagnosis: Primary insomnia[ICD10: F51.01] Diagnosis: Other fatigue[ICD10: R53.83] María Elena [facility] CPT-4: 25384 04/10/2017 ([id number]) OFFICE/OUTPATIENT VISIT EST Diagnosis: Primary insomnia[ICD10: F51.01] Diagnosis: Localized edema[ICD10: R60.0] Diagnosis: 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] María Elena [facility] CPT-4: 07955 12/13/2016 ([id number]) OFFICE/OUTPATIENT VISIT EST Diagnosis: Primary insomnia[ICD10: F51.01] Diagnosis: Cyanosis[ICD10: R23.0] María Elena Bazzi [facility] CPT-4: 78348 11/01/2016 ([id number]) PREV VISIT EST AGE 40-64 Diagnosis: Encounter for gynecological examination (general) (routine) without abnormal findings[ICD10: Z01.419] Diagnosis: Encounter for routine child health examination without abnormal findings[ICD10: Z00.129] María Elena APPIAH [employer] [facility] CPT-4: 87580 10/17/2016 ([id number]) OFFICE/OUTPATIENT VISIT EST Diagnosis: Other seasonal allergic rhinitis[ICD10: J30.2] María Elena APPIAH [employer] [facility] CPT-4: 33861 10/10/2016 ([id number]) OFFICE/OUTPATIENT VISIT EST Diagnosis: Pain in left arm[ICD10: M79.602] Diagnosis: Contact with and (suspected) exposure to potentially hazardous body fluids[ICD10: Z77.21] Diagnosis: 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, 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] Diagnosis: Unspecified open wound, right foot, sequela[ICD10: S91.301S] María Elena APP[facility] DO [facility] CPT-4: 08898 09/19/2016 ([id number]) OFFICE/OUTPATIENT VISIT EST Diagnosis: Chronic sinusitis, unspecified[ICD10: J32.9] Diagnosis: Allergic rhinitis due to pollen[ICD10: J30.1] María Elena APPIA[facility] DO [facility] CPT-4: 02370 08/24/2016 ([id number]) OFFICE/OUTPATIENT VISIT EST Diagnosis: Acute bronchitis, unspecified[ICD10: J20.9] María Elena [facility] DO [facility] CPT-4: 04892 08/16/2016 ([id number]) OFFICE/OUTPATIENT VISIT EST Diagnosis: Otitis media, unspecified, right ear[ICD10: H66.91] Diagnosis: Acute bronchitis, unspecified[ICD10: J20.9] María Elena [facility] CPT-4: 86941 08/10/2016 ([id number]) OFFICE/OUTPATIENT VISIT EST Diagnosis: Acute recurrent sinusitis, unspecified[ICD10: J01.91] Diagnosis: Allergic rhinitis due to pollen[ICD10: J30.1] María Elena APPIAH [employer] [facility] CPT-4: 47732 08/02/2016 ([id number]) OFFICE/OUTPATIENT VISIT EST Diagnosis: Pain in unspecified joint[ICD10: M25.50] María Elena [facility] CPT-4: 15081 07/27/2016 OFFICE/OUTPATIENT VISIT EST Diagnosis: 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] Diagnosis: Acute recurrent sinusitis, unspecified[ICD10: J01.91] Diagnosis: Other fatigue[ICD10: R53.83] Diagnosis: Primary insomnia[ICD10: F51.01] Diagnosis: Pain in unspecified joint[ICD10: M25.50] María Elena APPIAH [employer] [facility] CPT-4: 40913 07/20/2016 ([id number]) OFFICE/OUTPATIENT VISIT EST Diagnosis: Blister (nonthermal), left great toe, initial encounter[ICD10: S90.422A] Loan APPIAH DO [facility] CPT-4: 60801 ([id number]) OFFICE/OUTPATIENT VISIT EST Diagnosis: Acute recurrent sinusitis, unspecified[ICD10: J01.91] María Elena APPIAH DO [facility] CPT-4: 79873 05/25/2016 ([id number]) OFFICE/OUTPATIENT VISIT EST Diagnosis: Acute sinusitis, unspecified[ICD10: J01.90] María Elena APPIAH DO [facility] CPT-4: 15528 04/26/2016 ([id number]) OFFICE/OUTPATIENT VISIT EST Diagnosis: Flushing[ICD10: R23.2] Diagnosis: Primary insomnia[ICD10: F51.01] María Elena APPIAH DO [facility] CPT-4: 51330 03/02/2016 ([id number]) OFFICE/OUTPATIENT VISIT EST Diagnosis: Other seasonal allergic rhinitis[ICD10: J30.2] Loan APPIAH DO [facility] CPT-4: 49695 02/09/2016 ([id number]) OFFICE/OUTPATIENT VISIT EST Diagnosis: Primary insomnia[ICD10: F51.01] Diagnosis: Urinary tract infection, site not specified[ICD10: N39.0] María Elena APPIAH DO [facility] CPT-4: 07912 01/24/2016 ([id number]) OFFICE/OUTPATIENT VISIT EST Diagnosis: Other specified disorders of Eustachian tube, bilateral[ICD10: H69.83] Diagnosis: Allergic rhinitis, unspecified[ICD10: J30.9] Loan APPIAH DO [facility] CPT-4: 02528 12/23/2015 ([id number]) OFFICE/OUTPATIENT VISIT EST Diagnosis: Acute recurrent sinusitis, unspecified[ICD10: J01.91] Diagnosis: 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] Diagnosis: Allergic rhinitis, unspecified[ICD10: J30.9] María Elena APPIAH DO [facility] CPT-4: 17065 12/08/2015 ([id number]) OFFICE/OUTPATIENT VISIT EST Diagnosis: Allergic rhinitis, unspecified[ICD10: J30.9] Diagnosis: Pain in unspecified joint[ICD10: M25.50] María Elena APPIAH DO [facility] CPT-4: 38674 10/07/2015 ([id number]) OFFICE/OUTPATIENT VISIT EST Diagnosis: Essential (primary) hypertension[ICD10: I10] María Elena APPIAH DO [facility] CPT-4: 84292 10/06/2015 OFFICE/OUTPATIENT VISIT EST Diagnosis: Localized enlarged lymph nodes[ICD10: R59.0] Diagnosis: Local infection of the skin and subcutaneous tissue, unspecified[ICD10: L08.9] June VelozAlbertadaniella APPIAH DO [facility] CPT- 4: 48513 09/14/2015 ([id number]) OFFICE/OUTPATIENT VISIT EST Diagnosis: Essential (primary) hypertension[ICD10: I10] Diagnosis: Actinic keratosis[ICD10: L57.0] María Elena APPIAH DO [facility] CPT-4: 57713 09/07/2015 ([id number]) OFFICE/OUTPATIENT VISIT EST Diagnosis: Essential (primary) hypertension[ICD10: I10] Diagnosis: Acute stress reaction[ICD10: F43.0] María Elena APPIAH DO [facility] CPT-4: 30841 08/18/2015 ([id number]) OFFICE/OUTPATIENT VISIT EST Diagnosis: Essential (primary) hypertension[ICD10: I10] María Elena APPIAH DO [facility] CPT-4: 45985 07/07/2015 ([id number]) OFFICE/OUTPATIENT VISIT EST Diagnosis: Essential (primary) hypertension[ICD10: I10] María Elena APPIAH DO [facility] CPT-4: 34034 06/24/2015 ([id number]) OFFICE/OUTPATIENT VISIT EST Diagnosis: Essential (primary) hypertension[ICD10: I10] María Elena APPIAH DO [facility] CPT-4: 70640 06/21/2015 ([id number]) OFFICE/OUTPATIENT VISIT EST Diagnosis: Essential (primary) hypertension[ICD10: I10] Diagnosis: Mixed hyperlipidemia[ICD10: E78.2] Diagnosis: Acute stress reaction[ICD10: F43.0] Diagnosis: Primary insomnia[ICD10: F51.01] María Elena APPIAH [facility] CPT-4: 50952 06/16/2015 ([id number]) OFFICE/OUTPATIENT VISIT EST Diagnosis: INSOMNIA NOS[ICD9: 780.52] Diagnosis: HYPERTENSION[ICD9: 401.9] Diagnosis: Stress reaction[ICD9: 308.9] María Elena APPIAH [facility] CPT-4: 56957 06/02/2015 ([id number]) OFFICE/OUTPATIENT VISIT EST Diagnosis: HYPERTENSION[ICD9: 401.9] Diagnosis: Stress reaction[ICD9: 308.9] María Elena APPIAH [facility] CPT-4: 02524 05/20/2015 ([id number]) OFFICE/OUTPATIENT VISIT EST Diagnosis: Skin lesion[ICD9: 709.9] 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] María Elena ELLISLINE Fabiola [facility] CPT-[facility]: 49117 05/10/2015 ([id number]) OFFICE/OUTPATIENT VISIT EST Diagnosis: SINUSITIS, ACUTE[ICD9: 461.9] Diagnosis: ALLERGIC RHINITIS[ICD9: 477.9] Diagnosis: DERMATITIS NOS[ICD9: 692.9] María Elena ELLISLINE LucioJj Marcos ORI [facility] CPT-4: 32311 03/16/2015 OFFICE/OUTPATIENT VISIT EST Diagnosis: Otitis media[ICD9: 382.9] Diagnosis: SINUSITIS, ACUTE[ICD9: 461.9] June Flores MARÍA ELENA LucioJj [facility] C[facility]: 21434 09/11/2014 ([id number]) OFFICE/OUTPATIENT VISIT EST Diagnosis: HYPERLIPIDEMIA NEC/NOS[ICD9: 272.4] María Elena Seamusdawn COLON LucioJj [facility] CPT-4: 58205 08/31/2014 ([id number]) OFFICE/OUTPATIENT VISIT EST Diagnosis: - I - HYPERTENSION[ICD9: 401.9] Diagnosis: HYPERLIPIDEMIA NEC/NOS[ICD9: 272.4] María Elena APPIAH DO [facility] CPT-4: 71432 08/27/2014 ([id number]) OFFICE/OUTPATIENT VISIT EST Diagnosis: ABDOMINAL PAIN[ICD9: 789.00] Diagnosis: DYSPEPSIA[ICD9: 536.8] Diagnosis: Thoracic back pain[ICD9: 724.1] María Elena APPIAH DO [facility] CPT-4: 90519 07/21/2014 ([id number]) OFFICE/OUTPATIENT VISIT EST Diagnosis: ALLERGIC RHINITIS[ICD9: 477.9] María Elena APPIAH DO [facility] CPT-4: 13854 07/15/2014 ([id number]) OFFICE/OUTPATIENT VISIT EST Diagnosis: EDEMA[ICD9: 782.3] Diagnosis: Chronic insomnia[ICD9: 780.52] María Elena APPIAH DO [facility] CPT-4: 62050 05/18/2014 ([id number]) OFFICE/OUTPATIENT VISIT EST Diagnosis: Thyromegaly[ICD9: 240.9] Diagnosis: - I - HYPERTENSION[ICD9: 401.9] Diagnosis: ROUTINE MEDICAL EXAM[ICD9: V70.0] Diagnosis: EDEMA[ICD9: 782.3] María Eelna APPIAH DO [facility] CPT-4: 45245 05/14/2014 OFFICE/OUTPATIENT VISIT EST Diagnosis: BRONCHITIS, ACUTE[ICD9: 466.0] Diagnosis: SINUSITIS, ACUTE[ICD9: 461.9] María Elena APPIAH DO [facility] CPT-4: 15491 04/21/2014 OFFICE/OUTPATIENT VISIT EST Diagnosis: SINUSITIS, ACUTE[ICD9: 461.9] June Flores MARÍA ELENA APPIAH DO [facility] CPT-4: 15381 03/04/2014 ([id number]) OFFICE/OUTPATIENT VISIT EST Diagnosis: VACCINE FOR TDAP[ICD10: Z23] María Elena APPIAH [facility] CPT-4: 64243 02/27/2014 ([id number]) OFFICE/OUTPATIENT VISIT EST Diagnosis: Seborrheic keratoses, inflamed[ICD9: 702.11] Diagnosis: ACTINIC KERATOSIS[ICD9: 702.0] Diagnosis: INSOMNIA NOS[ICD9: 780.52] María Elena PANDYA [facility] CPT-4: 85278 01/13/2014 OFFICE/OUTPATIENT VISIT EST Diagnosis: EUSTACHIAN TUBE DYSFUNCTION[ICD9: 381.81] Diagnosis: ALLERGIC RHINITIS[ICD9: 477.9] Diagnosis: Serous otitis media[ICD9: 381.4] María Elena APPIAH [facility] CPT-4: 10661 12/24/2013 ([id number]) OFFICE/OUTPATIENT VISIT EST Diagnosis: SINUSITIS, ACUTE[ICD9: 461.9] Diagnosis: ALLERGIC RHINITIS[ICD9: 477.9] Diagnosis: EUSTACHIAN TUBE DYSFUNCTION[ICD9: 381.81] María Elena [facility]: 78845 11/12/2013 ([id number]) OFFICE/OUTPATIENT VISIT EST Diagnosis: ALLERGIC RHINITIS[ICD9: 477.9] Diagnosis: SINUSITIS, ACUTE[ICD9: 461.9] María Elena APPIHA [facility] CPT-4: 93537 10/21/2013 ([id number]) OFFICE/OUTPATIENT VISIT EST Diagnosis: ASYMPTOMATIC VARICOSE VEINS[ICD9: 454.9] Diagnosis: INSOMNIA NOS[ICD9: 780.52] María Elena Valdes KRISTYN [facility] CPT-4: 45745 09/22/2013 OFFICE/OUTPATIENT VISIT EST Diagnosis: SINUSITIS, ACUTE[ICD9: 461.9] June Flores MARÍA ELENA APPIAH [facility] CPT-4: 99937 08/27/2013 ([id number]) OFFICE/OUTPATIENT VISIT EST Diagnosis: CEPHALGIA[ICD9: 784.0] Diagnosis: CEPHALGIA, TENSION[ICD9: 307.81] 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] María Elena APPIAH [facility] CPT-4: 43526 08/04/2013 ([id number]) OFFICE/OUTPATIENT VISIT EST Diagnosis: Cervicalgia[ICD9: 723.1] Diagnosis: SPASM OF MUSCLE[ICD9: 728.85] Diagnosis: CEPHALGIA, TENSION[ICD9: 307.81] María Elena APPIAH DO [facility] CPT-4: 99289 07/23/2013 ([id number]) OFFICE/OUTPATIENT VISIT EST Diagnosis: EUSTACHIAN TUBE DYSFUNCTION[ICD9: 381.81] Diagnosis: ALLERGIC RHINITIS[ICD9: 477.9] María Elena APPIAH DO [facility] CPT-4: 78701 06/23/2013 ([id number]) OFFICE/OUTPATIENT VISIT EST Diagnosis: ALLERGIC RHINITIS[ICD9: 477.9] Diagnosis: ACUTE SEROUS OTITIS MEDIA[ICD9: 381.01] Diagnosis: EUSTACHIAN TUBE DYSFUNCTION[ICD9: 381.81] María Elena APPIAH DO [facility] CPT-4: 65504 05/26/2013 ([id number]) OFFICE/OUTPATIENT VISIT EST Diagnosis: HYPERTENSION[ICD9: 401.9] Diagnosis: EDEMA[ICD9: 782.3] Diagnosis: Serous otitis media[ICD9: 381.4] María Elena APPIAH DO [facility] CPT-4: 94230 04/16/2013 ([id number]) OFFICE/OUTPATIENT VISIT EST Diagnosis: SINUSITIS, ACUTE[ICD9: 461.9] Diagnosis: ALLERGIC RHINITIS[ICD9: 477.9] Diagnosis: EDEMA[ICD9: 782.3] Diagnosis: Thyromegaly[ICD9: 240.9] Diagnosis: MALAISE AND FATIGUE[ICD9: 780.79] María Elena APPIAH [facility] CPT-4: 55497 03/05/2013 ([id number]) OFFICE/OUTPATIENT VISIT EST Diagnosis: PAIN, LOWER BACK[ICD9: 724.2] Diagnosis: SPASM OF MUSCLE[ICD9: 728.85] María Elena APPIAH DO [facility] CPT-4: 19835 12/23/2012 OFFICE/OUTPATIENT VISIT EST Diagnosis: Low back pain[ICD9: 724.2] Lashawn Babar MARÍA ELENA S. KRISTYN [facility] CPT-4: 62485 12/16/2012 ([id number]) OFFICE/OUTPATIENT VISIT EST Diagnosis: PAIN, LOWER BACK[ICD9: 724.2] Diagnosis: SCIATICA[ICD9: 724.3] Diagnosis: Lumbar herniated disc[ICD9: 722.10] María Elena COLON LucioJj TD GARIBAY [facility] CPT-4: 63733 12/09/2012 ([id number]) OFFICE/OUTPATIENT VISIT EST Diagnosis: PAIN, LOWER BACK[ICD9: 724.2] Diagnosis: SCIATICA[ICD9: 724.3] Diagnosis: LUMBAR DISC DISPLACEMENT[ICD9: 722.10] María Elena MARIN LucioJj TD [facility] CPT-4: 37100 12/04/2012 OFFICE/OUTPATIENT VISIT EST Diagnosis: Pneumonia[ICD9: 486] Mary JUARES LucioJj [facility] CPT-[facility]: 11373 11/22/2012 ([id number]) OFFICE/OUTPATIENT VISIT EST Diagnosis: PNEUMONIA, ORGANISM[ICD9: 486] Diagnosis: Exacerbation of RAD (reactive airway disease)[ICD9: 493.92] María Elena JUARES LucioJj TD [facility] CPT-4: 86460 11/21/2012 OFFICE/OUTPATIENT VISIT EST Diagnosis: HYPERTENSION[ICD9: 401.9] Diagnosis: Cephalgia[ICD9: 784.0] Lashawn Hicks SEAMUSYESIVICTORINO [facility]IBAY [facility] CPT-4: 83876 10/29/2012 ([id number]) OFFICE/OUTPATIENT VISIT EST Diagnosis: MALAISE AND FATIGUE[ICD9: 780.79] Diagnosis: ARTHRALGIA-MULTIPLE SITES[ICD9: 719.49] María Elena REED LucioJj TD [facility] CPT-4: 03083 10/14/2012 ([id number]) OFFICE/OUTPATIENT VISIT EST Diagnosis: URINARY FREQUENCY[ICD9: 788.41] María Elena JUARES LucioJj TD [facility] CPT-4: 25596 09/27/2012 ([id number]) OFFICE/OUTPATIENT VISIT EST Diagnosis: MALAISE AND FATIGUE[ICD9: 780.79] Diagnosis: ARTHRALGIA-MULTIPLE SITES[ICD9: 719.49] María Elena APPIAH [facility] CPT-4: 21881 09/25/2012 ([id number]) OFFICE/OUTPATIENT VISIT EST Diagnosis: SINUSITIS, ACUTE[ICD9: 461.9] Diagnosis: EUSTACHIAN TUBE DYSFUNCTION[ICD9: 381.81] María Elena APPIAH [facility] CPT-4: 63299 08/29/2012 OFFICE/OUTPATIENT VISIT EST Diagnosis: ACTINIC KERATOSIS[ICD9: 702.0] Diagnosis: Inflamed seborrheic keratosis[ICD9: 702.11] Diagnosis: Skin cancer of face[ICD9: 173.31] Diagnosis: HYPERTENSION[ICD9: 401.9] [facility] 01805 08/12/2012 ([id number]) OFFICE/OUTPATIENT VISIT EST Diagnosis: ARTHRALGIA-MULTIPLE SITES[ICD9: 719.49] Diagnosis: GOUT[ICD9: 274.9] Diagnosis: HYPERTENSION[ICD9: 401.9] Diagnosis: Tachycardia[ICD9: 785.0] María Elena HU [facility] CPT-4: 59125 05/06/2012 ([id number]) OFFICE/OUTPATIENT VISIT EST Diagnosis: INSOMNIA NOS[ICD9: 780.52] María Elena [facility] CPT-4: 17634 04/03/2012 ([id number]) OFFICE/OUTPATIENT VISIT EST Diagnosis: INSOMNIA NOS[ICD9: 780.52] Diagnosis: HYPERTENSION[ICD9: 401.9] Diagnosis: MIGRAINE NOS/NOT INTRCBL[ICD9: 346.90] María Elena [facility] CPT[facility]: 50774 03/19/2012 ([id number]) OFFICE/OUTPATIENT VISIT EST Diagnosis: CELLULITIS[ICD9: 682.9] Diagnosis: Ankle pain[ICD9: 719.47] Diagnosis: HYPERTENSION[ICD9: 401.9] María Elena [facility] Mary [facility] CPT-4: 32867 02/20/2012 ([id number]) OFFICE/OUTPATIENT VISIT EST Diagnosis: MIGRAINE NOS/NOT INTRCBL[ICD9: 346.90] Diagnosis: Vomiting[ICD9: 787.03] María Elena JUARES LucioJj SEAMUSYESIJohn Bazzi [facility] CPT-4: 82980 01/30/2012 ([id number]) OFFICE/OUTPATIENT VISIT EST Diagnosis: EDEMA[ICD9: 782.3] Diagnosis: HYPERTENSION[ICD9: 401.9] Diagnosis: ALLERGIC RHINITIS[ICD9: 477.9] Diagnosis: ARTHRALGIA-MULTIPLE SITES[ICD9: 719.49] María Elena Seamusdawn REED LucioJj TD [facility] CPT-4: 83307 01/24/2012 ([id number]) OFFICE/OUTPATIENT VISIT EST Diagnosis: SPASM OF MUSCLE[ICD9: 728.85] Diagnosis: Thoracic back pain[ICD9: 724.1] Diagnosis: Cervical pain[ICD9: 723.1] María Elena Hicks KRISTYN MUMTAZ [facility] CPT-4: 78436 01/10/2012 OFFICE/OUTPATIENT VISIT EST Diagnosis: PAIN, LOWER BACK[ICD9: 724.2] Diagnosis: LUMBAR DISC DISPLACEMENT[ICD9: 722.10] María Elena MARIN LucioJj TD [employer] [facility] CPT-4: 18695 12/11/2011 OFFICE/OUTPATIENT VISIT EST Diagnosis: MIGRAINE NOS/NOT INTRCBL[ICD9: 346.90] Diagnosis: SINUSITIS, ACUTE[ICD9: 461.9] María Elena Hicks TD [employer] [facility] CPT-4: 98121 11/09/2011 OFFICE/OUTPATIENT VISIT EST Diagnosis: MIGRAINE NOS/NOT INTRCBL[ICD9: 346.90] Diagnosis: LYMPHADENOPATHY[ICD9: 785.6] María Elena Hicks TD [employer] [facility] CPT-4: 30733 09/13/2011 OFFICE/OUTPATIENT VISIT EST Diagnosis: MALAISE AND FATIGUE[ICD9: 780.79] Diagnosis: ARTHRALGIA-MULTIPLE SITES[ICD9: 719.49] María Elena Hicks TD [employer] [facility] CPT-4: 89999 08/31/2011 OFFICE/OUTPATIENT VISIT EST Diagnosis: SINUSITIS, ACUTE[ICD9: 461.9] María Elena ORTAER DO [facility] CPT-4: 73414 07/20/2011 OFFICE/OUTPATIENT VISIT EST Diagnosis: HYPERTENSION[ICD9: 401.9] Diagnosis: PAIN, LOWER BACK[ICD9: 724.2] Diagnosis: SPASM OF MUSCLE[ICD9: 728.85] María Elena ORTAER DO [facility] CPT-4: 98904 07/06/2011 OFFICE/OUTPATIENT VISIT EST Diagnosis: MIGRAINE NOS/NOT INTRCBL[ICD9: 346.90] Diagnosis: HYPERTENSION[ICD9: 401.9] María Elena GODOY NDER [facility] CPT-4: 16288 05/22/2011 OFFICE/OUTPATIENT VISIT EST Diagnosis: SINUSITIS, ACUTE[ICD9: 461.9] Diagnosis: MIGRAINE NOS/NOT INTRCBL[ICD9: 346.90] Diagnosis: Dehydration[ICD9: 276.51] Diagnosis: Vomiting[ICD9: 787.03] María Elena ORTAE R DO [facility] CPT-4: 02287 05/09/2011 ([id number]) OFFICE/OUTPATIENT VISIT EST María Elena MARIN SJj GODOYNDER DO [facility] CPT-4: 35959 02/14/2011 ([id number]) OFFICE/OUTPATIENT VISIT EST María Elena ISAAC UJARED S. ORENDER DO [facility] CPT-4: 57569 02/03/2011 ([id number]) OFFICE/OUTPATIENT VISIT EST María Elena ISAAC UJARED S. ORENDER DO [facility] CPT-4: 45573 01/31/2011 ([id number]) OFFICE/OUTPATIENT VISIT EST María Elena ISAAC UELINE S. ORENDER DO [facility] CPT-4: 07455 01/25/2011 ([id number]) OFFICE/OUTPATIENT VISIT EST María Elena ISAAC UJARED S. [facility] DO [facility] CPT-4: 00664 01/18/2011 ([id number]) OFFICE/OUTPATIENT VISIT EST María Elena MARIN S. [facility] DO [facility] CPT-4: 31908 11/29/2010 ([id number]) OFFICE/OUTPATIENT VISIT, EST María Elena [facility] CPT-4: 52440 10/10/2010 ([id number]) OFFICE/OUTPATIENT VISIT, EST María Elena REED S. OR[facility] DO [employer] CPT-4: 25402 06/07/2010 ([id number]) OFFICE/OUTPATIENT VISIT, EST María Elena REED S. ORENDER DO [employer] CPT-4: 66466 04/27/2010 ([id number]) OFFICE/OUTPATIENT VISIT, EST María Elena REED S. ORENDER DO [facility] CPT-4: 62111 04/05/2010 ([id number]) OFFICE/OUTPATIENT VISIT, EST María Elena REED S. ORENDER DO [facility] CPT-4: 87592 03/09/2010 ([id number]) OFFICE/OUTPATIENT VISIT, EST María Elena REED S. ORENDER DO [facility] CPT-4: 04263 03/03/2010 ([id number]) OFFICE/OUTPATIENT VISIT, EST María Elena REED S. ORENDER DO [facility] CPT-4: 75236 01/17/2010 ([id number]) PREV VISIT, EST, AGE 40-64 María Elena COLEMAN SJj GODOYNDER DO [employer] CPT-4: 19539 12/27/2009 Plan of Care Planned Activity Notes [...] : E11.65 10/07/2019 Appointment: Kathleen Zuniga [address] [facility] [place] OFFICE SURGERY 10/07/2019 Visit [...] E11.65 09/30/2019 Appointment: María Elena Appiah WPtel: [address] [place], [place] [phone] [place] CHECK UP 09/30/2019 Patient Education: Premarin- [employer] Coupon [id number] https://www.RunMyProcess.com/samplemd/resources/getResource/61/27666c94-f958-1nlc-u6 Completed 09/30/2019 Appointment: María Elena Appiah WPtel: [address] [place], [place] [phone] [place] LAB 09/29/2019 Appointment: María Elena Appiah WPtel: [address] [place] [address] [place] Won't have the new insurance till [...] 05/28/2019 Appointment: María Elena Appiah WPtel: [address] [place], [place] [phone] FOLLOW UP 05/28/2019 Appointment: María Elena Appiahtel: [address] [place], [place] [address] US BP CHECK 05/19/2019 Visit Diagnosis Plan: [...] : Z79.890 01/22/2019 Appointment: María Elena Appiahtel: [address] [place], [place] [phone] [place] FOLLOW UP 01/22/2019 Patient Education: estradiol- [employer] Coupon [id number] https://www.Kobo/samplemd/resources/getResource/61/982i446n-6mv8-5b71-2l Completed 01/22/2019 Appointment: María Elena Appiahtel: [address] [place] [address] [place] CANCELED 01/20/2019 Appointment: María Elena Appiah WPtel: [address] [place] [address] [place] LM NO SHOW 01/06/2019 Appointment: María Elena Appiah WPtel: [address] [place] [address] [place] CANCELED 10/17/2018 Appointment: María Elena Appiah WPtel: [address] [place] [address] US BP CHECK 10/09/2018 Visit Diagnosis Plan: [...] I10 09/30/2018 Appointment: María Elena Appiah WPtel: [address] [place] [address] [place] FOLLOW UP 09/30/2018 Visit Diagnosis Plan: [...] 08/27/2018 Appointment: María Elena Appiah WPtel: [address] [place] [address] [place] ACUTE ILLNESS 08/27/2018 Appointment: María Elena Appiah WPtel: [address] [place], [place] [phone] [place] Patient stated she went out to [...] prn. Tyle... 08/09/2018 Appointment: María Elena Appiahtel: [address] [place] [address] ACUTE ILLNESS 08/09/2018 Appointment: María Elena Appiahtel: [address] [place], [place] [id number] NO SHOW 08/08/2018 Visit Diagnosis Plan: Anxiety [...] : B35.4 07/22/2018 Appointment: María Elena Appiahtel: [address] [place], [place] [phone] ACUTE ILLNESS 07/22/2018 Appointment: María Elena Appiahtel: [address] [place], [place] [phone] [place] INJECTION 06/19/2018 Patient Education: Patient Medication [...] : L03.031 06/17/2018 Appointment: Kathleen Zuniga [address] [facility] ACUTE ILLNESS 06/17/2018 Patient Education: Patient [...] : B02.9 05/16/2018 Appointment: Kathleen Zuniga [address] [facility] ACUTE ILLNESS 05/16/2018 Patient Education: Patient [...] : L03.115 03/20/2018 Appointment: Kathleen Zuniga [address] [facility] FOLLOW UP 03/20/2018 Patient Education: Patient [...] : L03.115 03/18/2018 Appointment: Kathleen Zuniga [address] [facility] FOLLOW UP 03/18/2018 Patient Education: Patient [...] L03.115 03/15/2018 Appointment: Kathleen Zuniga [address] [facility] ACUTE ILLNESS 03/15/2018 Patient Education: [...] : J01.90 02/11/2018 Appointment: Kathleen Zuniga [address] [facility] ACUTE ILLNESS 02/11/2018 Patient Education: Patient Medication Summary Completed 02/11/2018 Appointment: María Elena Appiah WPtel: [phone] [facility] [place] INJECTION 02/01/2018 Patient Education: Patient [...] ICD-10 : M51.16 01/30/2018 Appointment: Kathleen Zuniga [address] [place], [place] [id number] ACUTE ILLNESS 01/30/2018 Patient Education: Patient Medication [...] 12/18/2017 Appointment: María Elena Appiah WPtel: [phone] Annual Well Visit 12/18/2017 Patient Education: Patient Medication Summary Completed 12/18/2017 Care Plan: Referral Order SNOMED-CT : [id number] Pending 12/18/2017 Appointment: María Elena Appiah WPtel: [phone] INJECTION 12/10/2017 Patient Education: Patient Medication [...] : L03.031 12/07/2017 Appointment: Kathleen Zuniga [address] [place] [address] ACUTE ILLNESS 12/07/2017 Patient Education: Patient Medication [...] : J01.00 10/08/2017 Appointment: Kathleen Zuniga [address] [place] [address] ACUTE ILLNESS 10/08/2017 Patient Education: Patient Medication Summary Completed 10/08/2017 Appointment: María Elena Appiah WPtel: [phone] [id number] [place] INJECTION 09/21/2017 Patient Education: Patient Medication [...] : R06.83 09/20/2017 Appointment: Kathleen Zuniga [address] [place], [place] [id number] ACUTE ILLNESS 09/20/2017 Patient Education: Patient Medication [...] : L60.0 08/29/2017 Appointment: Kathleen Zuniga [address] [place] [address] OFFICE SURGERY 08/29/2017 Patient Education: Patient Medication Summary Completed 08/29/2017 Visit Diagnosis Plan: Actinic keratosis Discussion: Cr yotherapy as above ICD-9 : 702.0 ICD-10 : L57.0 08/01/2017 Appointment: María Elena Appiah WPtel: [address] [place] [address] OFFICE SURGERY 08/01/2017 Patient Education: Patient Medication Summary Completed 08/01/2017 Appointment: María Elena Appiah WPtel: [address] [place] [address] PATIENT THOUGHT APPOINTMENT WAS TOMORROW 07/26/17 CALLED 15 MINUTES BEFORE APPT TO SAY SHE DIDN'T HAVE ANYONE TO COVER HER BUSINESS AND WOULD NOT MAKE IT NO SHOW 07/25/2017 Visit Diagnosis Plan: Cellulitis of left toe Discussio n: Clindamycin and notify if worsening or persistis ICD-9 : 681.10 ICD-10 : L03.032 07/19/2017 Appointment: María Elena Appiah WPtel: [address] [place], [place] [address] MEDICATION REVIEW 07/19/2017 Patient Education: Patient Medication Summary Completed 07/19/2017 Appointment: María Elena Appiah WPtel: [address] [place] [address] [place] CANCELED 07/04/2017 Visit Diagnosis Plan: Generalized hyperhidrosis Discus ian: CBC, CMP, TSH, free T4 ordered to assess. will review labs. ICD-9 : 780.8 ICD-10 : R61 06/27/2017 Visit Diagnosis Plan: Chronic sinusitis, unspecified D iscussion: Referral sent to dr. albarado in [place] per patient request. patient has been treated multiple times for sinus infections with no recovery. patient was seen by dr sanchez in the past with no interventions. patient has deviated septum which may be affecting her sinuses. 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, including hip Discussion: Shave removal of above lesio n--sent to pathology ICD-9 : 216.7 ICD-10 : D23.72 01/24/2017 Appointment: María Elena Appiah WPtel: [address] [place] [address] 01/23 confirmed ~sl OFFICE SURGERY 01/24/2017 Patient Education: Patient Medication Summary Completed 01/24/2017 Appointment: Loan Sánchez [address] [place] [address] 01/09 rescheduled~sl RESCHEDULED 01/15/2017 Visit Diagnosis Plan: Localized edema Discussion: Damir king metolazone to lasix with potassium prn ICD-9 [...] L81.4 12/13/2016 Appointment: María Elena Appiah WPtel: [address] [place], [place] [phone] [place] 12/12 confirmed ~ MEDICATION REVIEW 12/13/2016 Patient Education: Patient Medication Summary Completed 12/13/2016 Appointment: María Elena Appiah WPtel: [address] [place], [place] [phone] [place] rescheduled for 12/13/16 at 11am RESCHEDULED 0 12/06/2016 Appointment: María Elena Appiah WPtel: [address] [place], [place] [phone] [place] CANCELED 11/23/2016 Patient Education: Patient Medication [...] F51.01 11/01/2016 Appointment: María Elena Appiah WPtel: [address] [place], [place] [id number] [place] 10/31 lm `sl 11/01 lm`sl MEDICATION REVIEW 017 Patient Education: Patient Medication Summary Completed 11/01/2016 Referral: Canelo Overton WPtel: [phone] [id number] Referral Initiated 10/30/2016 Visit Diagnosis Plan: Encounter [...] Z01.419 10/17/2016 Appointment: María Elena Appiah WPtel: [address] [place], [place] [id number] 10/16 confirmed ~sl PAP 10/17/2016 Patient Education: Patient Medication Summary Completed 10/17/2016 Care Plan: MAMMOGRAM SCREENING LOINC : 2 6347-5 Pending 10/17/2016 Visit Diagnosis Plan: Other seasonal allergic rhinitis Discussion: Decadron/Garamycin Nasal [place] Mix Too soon for steroid Retry zyrtec 10mg daily ICD-9 : 477.9 ICD-10 : J30.2 10/10/2016 Appointment: María Elena Appiah WPtel: [address] [place], [place] [id number] [place] FOLLOW UP 10/10/2016 Patient Education: Patient Medication Summary Completed 10/10/2016 Appointment: María Elena Appiah WPtel: [address] [place], [place] [id number] 10/02 reschedule `sl RESCHEDULED 10/02/2016 Visit Plan: See surgery for removal of n ew left arm lesion and right foot lesion Lyrica to use next month for left arm paresthesias Continue current meds Discussed sunscreen/sunblock combo 09/19/2016 Appointment: María Elena Appiah WPtel: [address] 09/18 confirmed ~sl FOLLOW UP 09/19/2016 Patient Education: Patient Medication Summary Completed 09/19/2016 Patient Education: Patient Medication Summary Completed 09/18/2016 Care Plan: MAMMOGRAM BOTH BREASTS LOINC : 06052-6 Pending 09/18/2016 Visit Plan: Discussed that needs [...] sinuses 08/24/2016 Appointment: María Elena Appiah WPtel: [address] [place] [address] ACUTE ILLNESS 08/24/2016 Patient Education: Patient Medication Summary Completed 08/24/2016 Patient Education: Patient Medication Summary Completed 08/23/2016 Care Plan: MAMMOGRAM SCREENING LOINC : 2 6347-5 Pending 08/23/2016 Visit Plan: Finish doxycycline Add Breo 100/25 1 p BID for 2 weeks If not improving within next 2 days will get CXR 08/16/2016 Appointment: María Elena Appiahtel: [address] [place] [address] ACUTE ILLNESS 08/16/2016 Patient Education: Patient Medication Summary Completed 08/16/2016 Visit Plan: Supportive care. Rest, Fluid s, Tylenol/Motrin prn fever or bodyaches. Notify if worsening symptoms. Doxycyline and Prednisone 08/10/2016 Appointment: María Elena Appiah WPtel: [facility] 08/09 lm`sl....confirmed-sp FOLLOW UP 09/2015 Patient Education: Patient Medication Summary Completed 08/10/2016 Visit Plan: Saline nasal flushes prn. Ty lenol/Motrin prn headache. Notify if persists/symptoms worsening. Dexamethasone 8mg IM today May use coricedan and mucinex 08/02/2016 Appointment: María Elena Appiah WPtel: [address] [place], [place] [id number] ACUTE ILLNESS 08/02/2016 Patient Education: Patient Medication Summary Completed 08/02/2016 Visit Plan: Cryotherapy as above and lef t forearm lesion removal as above with 5-0 punch biopsy and sent to [facility] Return in 10 days for suture removal 08/01/2016 Appointment: María Elena Appiah WPtel: [address] [place] [address] 07/31 confirmed`~ OFFICE SURGERY 08/01/2016 Patient Education: Patient Medication Summary Completed 08/01/2016 Visit Plan: Stop clindamycin Check CBC, CMP, ESR now/STAT 07/27/2016 Appointment: María Elena Appiah WPtel: [address] [place] [address] ACUTE ILLNESS 07/27/2016 Patient Education: Patient Medication Summary Completed 07/27/2016 Visit Plan: Update lab and check ABIs to start with Will likely need cardiology evaluation to rule out PVD Clindamycin for 10 days Daily yogurt or probiotic Will return for removal of left arm lesions 07/20/2016 Appointment: María Elena Appiah WPtel: [address] [place] [address] ACUTE ILLNESS 07/20/2016 Patient Education: Patient Medication Summary Completed 07/20/2016 Patient Education: Patient Medication Summary Completed 07/20/2016 Care Plan: MAMMOGRAM BOTH BREASTS LOINC : 86296-8 Pending 07/20/2016 Care Plan: US EXAM CHEST LOINC : 16533-7 Pending 07/20/2016 Visit Plan: Wound culture collected from left great toe Appearance is somewhat staph like Rx as above Wound cleanser and skin care reviewed May need to add oral antibiotic if sores do not heal or continue to reoccur 07/06/2016 Appointment: Loan Sánchez [address] [place] [address] ACUTE ILLNESS 07/06/2016 Patient Education: Patient Medication Summary Completed 07/06/2016 Appointment: María Elena Appiah WPtel: [address] [place], [place] [phone] [place] INJECTION 05/25/2016 Patient Education: Patient Medication Summary Completed 05/25/2016 Visit Plan: Saline nasal flushes prn. Ty lenol/Motrin prn headache. Notify if persists/symptoms worsening. Dexamethasone and Rocephin given 04/26/2016 Appointment: María Elena Appiah WPtel: [address] [place] [address] ACUTE ILLNESS 04/26/2016 Patient Education: Patient Medication Summary Completed 04/26/2016 Visit Plan: Check CBC, CMP, TSH, FreeT4, HbA1C, estradiol, lipids in AM 03/02/2016 Appointment: María Elena Appiah WPtel: [address] [place] [address] 03/01 lm~sl ACUTE ILLNESS 03/02/2016 Patient Education: Patient Medication Summary Completed 03/02/2016 Visit Plan: Exam is nearly normal Needs to be taking daily antihistamine Would prefer to use oral steroids instead of shot but patient insist that oral steroids cause horrible headaches for her Will given kenalog IM instead 02/09/2016 Appointment: Loan Sánchez [address] [place] [address] ACUTE ILLNESS 02/09/2016 Patient Education: Patient Medication Summary Completed 02/09/2016 Visit Plan: Culture urine Macrobid DC xa nax Trial of Ativan 1mg q HS 01/24/2016 Appointment: María Elena Appiah WPtel: [address] [place] [address] ACUTE ILLNESS 01/24/2016 Patient Education: Patient Medication Summary Completed 01/24/2016 Visit Plan: No steroid or rocephin injec tion warranted Can have oral prednisone Continue current home regimen Needs to follow up with Dr Sanchez if problems persist 12/23/2015 Appointment: Loan Sánchez [address] [place] [address] ACUTE ILLNESS 12/23/2015 Patient Education: Patient Medication Summary Completed 12/23/2015 Visit Plan: Saline nasal flushes prn. Ty lenol/Motrin prn headache. Notify if persists/symptoms worsening. Kenalog 40mg IM today 12/08/2015 Appointment: María Elena Appiah WPtel: [address] [place], [place] [phone] 12/06 confirmed~sl ACUTE ILLNESS 12/08/2015 Patient Education: Patient Medication Summary Completed 12/08/2015 Appointment: María Elena Appiah WPtel: [address] [place], [place] [id number] ACUTE ILLNESS 11/18/2015 Patient Education: Patient Medication Summary Completed 10/11/2015 Appointment: María Elena Appiah WPtel: [address] [place], [place] [phone] [place] INJECTION 10/07/2015 Patient Education: Patient Medication Summary Completed 10/07/2015 Visit Plan: Check renal arterial doppler s and ECHO Change amlodopine to lotrel 5/20mg q HS Will need stress test as well Check CMP, uric acid, ESR 10/06/2015 Appointment: María Elena Appiah WPtel: [address] [place], [place] [phone] ACUTE ILLNESS 10/06/2015 Patient Education: Patient Medication Summary Completed 10/06/2015 Patient Education: [facility] [place] - [employer]aving [employer] - Amlodipine Besylate - 18-64 - Dynamic Portal ID Completed 10/06/2015 Appointment: María Elena Appiah WPtel: [address] [place], [place] [phone] FOLLOW UP 09/22/2015 Visit Plan: Cephalexin 500 mg PO bid Mery ly topical Mupirocin to lesions on left lateral neck and face Follow-up in one week. Sooner if symptoms worsen 09/14/2015 Appointment: June Flores WPtel: [address] [place] [address] ACUTE ILLNESS 09/14/2015 Patient Education: Patient Medication Summary Completed 09/14/2015 Visit Plan: Change bystolic to bedtime d osing and amlodopine to morning dosing Cryotherapy as above to AKs 09/07/2015 Appointment: María Elena Appiah WPtel: [address] [place], [place] [phone] 09/06 appointment made and confirmed ~sl FOLLOW UP 09/07/2015 Patient Education: Patient Medication Summary Completed 09/07/2015 Visit Plan: Increase bystolic back to 20 mg daily but will split and take 10mg in AM and 10mg in PM Stress Reducers 08/18/2015 Appointment: María Elena Appiah WPtel: [address] [place] [address] 08/17/15 appt confirmed cn ACUTE ILLNESS 08/18 Patient Education: Patient Medication Summary Completed 08/18/2015 Appointment: María Elena Appiah WPtel: [address] [place] [address] BP CHECK 07/07/2015 Patient Education: Patient Medication Summary Completed 07/07/2015 Appointment: María Elena Appiah WPtel: [address] [place] [address] BP CHECK 06/24/2015 Patient Education: Patient Medication Summary Completed 06/24/2015 Appointment: María Elena Appiah WPtel: [address] [place] [address] BP CHECK 06/21/2015 Patient Education: Patient Medication Summary Completed 06/21/2015 Visit Plan: Lab discussed Continue curre nt meds and lifestyle modification Recheck lab in 6mos 06/16/2015 Appointment: María Elena Appiah WPtel: [address] [place] [address] 06/15 confirmed FOLLOW UP 06/16/2015 Patient Education: Patient Medication Summary Completed 06/16/2015 Patient Education: Patient Medication Summary Completed 06/15/2015 Visit Plan: Increase cymbalta to 60mg q HS Keep clonidine at current dose Recheck 2weeks Change xanax to klonopin 06/02/2015 Appointment: María Elena Appiah WPtel: [address] [place], [place] [phone] 06/02 lm FOLLOW UP 06/02/2015 Patient Education: Patient Medication Summary Completed 06/02/2015 Appointment: María Elena Appiah WPtel: [address] [place] [address] ACUTE ILLNESS 05/24/2015 Visit Plan: Increase clonidine to 0.2mg q HS Add cymbalta 30mg q HS Recheck 2weeks Stress Reducers Check fasting lab Discussed sleep study 05/20/2015 Appointment: María Elena Appiah WPtel: [address] [place] [address] ACUTE ILLNESS 05/20/2015 Patient Education: Patient Medication Summary Completed 05/20/2015 Patient Education: [facility] [place] - [employer] - Cymbalta - 18-64 - Dynamic Portal ID Completed 05/20/2015 Appointment: María Elena Appiah WPtel: [address] [place] [address] BP CHECK 05/19/2015 Patient Education: Patient Medication Summary Completed 05/19/2015 Visit Plan: Topical Bactroban alternatin g with topical betamethasone Recheck 2weeks 05/10/2015 Appointment: María Elena Appiah WPtel: [address] [place] [address] 05/07 cn...05/07 appt confirmed OFFICE SURGER Y 05/10/2015 Patient Education: Patient Medication Summary Completed 05/10/2015 [facility]: [facility] [address] Referral Initiated 05/04/2015 Visit Plan: Saline nasal flushes prn. Ty lenol/Motrin prn headache. Notify if persists/symptoms worsening. Depomedrol 40mg IM today 03/16/2015 Appointment: María Elena Appiah WPtel: [address] [place] [address] ACUTE ILLNESS 03/16/2015 Patient Education: Patient Medication Summary Completed 03/16/2015 Appointment: María Elena Appiah WPtel: [address] [place] [address] ER Follow UP 03/09/2015 Visit Plan: Cryotherapy to lesions as ab ove 10/27/2014 Appointment: María Elena Appiah WPtel: [address] [place] [address] OFFICE SURGERY 10/27/2014 Patient Education: Patient Medication Summary Completed 10/27/2014 Appointment: June Flores WPtel: [address] [place] [address] ACUTE ILLNESS 09/11/2014 Patient Education: Patient Medication Summary Completed 09/11/2014 Visit Plan: Lab discussed Lipitor 10mg d aily Coenzyme Q-10 400mg daily Vitamin D3 5000u daily Recheck lipids with LFTs in 3mos then fwup 08/31/2014 Appointment: María Elena Appiah WPtel: [address] [place] [address] 08/28 voicemail FOLLOW UP 08/31/2014 Patient Education: Patient Medication Summary Completed 08/31/2014 Appointment: María Elena Appiah WPtel: [address] [place] [address] US LAB 08/27/2014 Appointment: María Elena Appiah WPtel: [address] [place], [place] [phone] US LAB 08/27/2014 Patient Education: Patient Medication Summary Completed 08/27/2014 Appointment: María Elena Appiah WPtel: [address] [place], [place] [id number] ACUTE ILLNESS 07/23/2014 Appointment: María Elena Appiah WPtel: [address] [place] [address] ACUTE ILLNESS 07/21/2014 Patient Education: Patient Medication Summary Completed 07/21/2014 Visit Plan: Kenalog 40mg IM today Contin ue narendra and singulair Add Flonase 07/15/2014 Appointment: María Elena Appiah WPtel: [address] [place], [place] [phone] ACUTE ILLNESS 07/15/2014 Appointment: María Elena Appiah WPtel: [address] [place], [place] [phone] ACUTE ILLNESS 07/15/2014 Patient Education: Patient Medication Summary Completed 07/15/2014 Visit Plan: Will do metolazone 2.5mg prn with 6 potassium and see if causes as severe cramping Trial of of seroquel XR 50mg q PM with evening meal and let us know how works 05/18/2014 Appointment: María Elena Appiah WPtel: [address] [place], [place] [phone] 05/15 left message FOLLOW UP 05/18/2014 Patient Education: Patient Medication Summary Completed 05/18/2014 Appointment: María Elena Appiah WPtel: [address] [place], [place] [phone] LAB 05/14/2014 Patient Education: Patient Medication Summary Completed 05/14/2014 Appointment: María Elena Appiah WPtel: [address] [place], [place] [phone] US INJECTION 04/22/2014 Visit Plan: Nimco today a nd finish abx given from urgent care 04/21/2014 Appointment: María Elena Appiah WPtel: [address] [place], [place] [phone] US INJECTION 04/21/2014 Patient Education: Patient Medication Summary Completed 04/21/2014 Appointment: June Flores WPtel: [address] [place], [place] [phone] ACUTE ILLNESS 03/04/2014 Patient Education: Patient Medication Summary Completed 03/04/2014 Appointment: María Elena Appiah WPtel: [address] [place], [place] [phone] US INJECTION 02/27/2014 Patient Education: Patient Medication Summary Completed 02/27/2014 Visit Plan: Cryotherapy as above to all lesions Patient wants to try no meds for insomnia for a while and see how goes 01/13/2014 Appointment: María Elena Appiah WPtel: [address] [place] [address] OFFICE SURGERY 01/13/2014 Patient Education: Patient Medication Summary Completed 01/13/2014 Visit Plan: Stop Melatonin Stop Soma Tri al of trazadone 75mg q HS See ENT for possible tubes as has had chronic ETD and serous otitis media with numerous steroids 12/24/2013 Appointment: María Elena Appiah WPtel: [address] [place] [address] ACUTE ILLNESS 12/24/2013 Patient Education: Patient Medication Summary Completed 12/24/2013 Visit Plan: Saline nasal flushes prn. Ty lenol/Motrin prn headache. Notify if persists/symptoms worsening. 11/12/2013 Appointment: María Elena Appiah WPtel: [address] [place] [address] ACUTE ILLNESS 11/12/2013 Patient Education: Patient Medication Summary Completed 11/12/2013 Appointment: María Elena Appiah WPtel: [address] [place] [address] ACUTE ILLNESS 10/21/2013 Patient Education: Patient Medication Summary Completed 10/21/2013 Visit Plan: Sleep hygiene and sleep rout ine Melatonin 10mg q HS Support stockings and observe 09/22/2013 Appointment: María Elena Appiah WPtel: [address] [place] [address] ACUTE ILLNESS 09/22/2013 Patient Education: Patient Medication Summary Completed 09/22/2013 Appointment: June Flores WPtel: [address] [place] [address] ACUTE ILLNESS 08/27/2013 Patient Education: Patient Medication Summary Completed 08/27/2013 Visit Plan: Proceed with CT scan of head /neck Proceed with occipital nerve injections Butrans 20mcg patch weekly until can get into see Dr. Mcdonough for injections 08/04/2013 Appointment: María Elena Appiah WPtel: [address] [place] [address] FOLLOW UP 08/04/2013 Patient Education: Patient Medication Summary Completed 08/04/2013 Visit Plan: OMT done Daily neck stretche s, moist heat Increase Celebrex to 200mg BID Add flexeril 07/23/2013 Appointment: María Elena Appiah WPtel: [address] [place] [address] 07/22 voicemail FOLLOW UP 07/23/2013 Patient Education: Patient Medication Summary Completed 07/23/2013 Appointment: María Elena Appiah WPtel: [address] [place] [address] ACUTE ILLNESS 06/23/2013 Patient Education: Patient Medication Summary Completed 06/23/2013 Appointment: María Elena Appiah WPtel: [address] [place] [address] ACUTE ILLNESS 05/26/2013 Patient Education: Patient Medication Summary Completed 05/26/2013 Visit Plan: Decrease clonidine to 0.1mg TID If BP remains stable consider decreasing amlodopine Prednisone for 5 days BP check in 1mo 04/16/2013 Appointment: María Elena Appiah WPtel: [address] [place] [address] 04/14 pt called and confirmed appt FOLLOW UP 04/16/2013 Patient Education: Patient Medication Summary Completed 04/16/2013 Appointment: María Elena Appiah WPtel: [address] [place] [address] ACUTE ILLNESS 03/05/2013 Patient Education: Patient Medication Summary Completed 03/05/2013 Visit Plan: Pt has MARIA ELENA on with Dr. Mcdonough Continue Butrans patch Refill Hydrocodone early tomorrow 12/23/2012 Appointment: María Elena Appiah WPtel: [address] [place] [address] FOLLOW UP 12/23/2012 Patient Education: Patient Medication Summary Completed 12/23/2012 Appointment: Lashawn Ecekrt WPtel: [address] [place] [address] ACUTE ILLNESS 12/16/2012 Patient Education: Patient Medication Summary Completed 12/16/2012 Visit Plan: Proceed with updated MRI of LS spine Continue gabapentin and add soma and diclofenac Will likely need to go for another epidural 12/09/2012 Appointment: María Elena Appiah WPtel: [address] [place] [address] ACUTE ILLNESS 12/09/2012 Patient Education: Patient Medication Summary Completed 12/09/2012 Visit Plan: Injection as above Finish me drol dose pack Chiropracter this afternoon 12/04/2012 Appointment: María Elena Appiah WPtel: [address] [place] [address] ACUTE ILLNESS 12/04/2012 Patient Education: Patient Medication Summary Completed 12/04/2012 Appointment: Mary Tillman WPtel: [address] [place] [address] FOLLOW UP 11/22/2012 Patient Education: Patient Medication Summary Completed 11/22/2012 Appointment: María Elena Appiah WPtel: [address] [place] [address] ACUTE ILLNESS 11/21/2012 Patient Education: Patient Medication Summary Completed 11/21/2012 Appointment: María Elena Appiah WPtel: [address] [place] [address] BP CHECK 11/07/2012 Patient Education: Patient Medication Summary Completed 11/07/2012 Visit Plan: reports extra clonidine and extra amlodipine and extra alprazalam. extra Ketolorac and promethazine last night. Bystolic 10 mg QAM and will continue all other blood pressure meds. Pt. encouraged to rest and hydrate. Discussed stroke and TX symptoms. Pt. instructed to seek ER eval if symptoms worsen or headache persists. Pt. agrees to ER eval/EMS transport if symptoms worsen. BP re-check. 10/29/2012 Appointment: Lashawn Eckert WPtel: [address] [place] [address] ACUTE ILLNESS 10/29/2012 Patient Education: Patient Medication Summary Completed 10/29/2012 Appointment: María Elena Appiah WPtel: [address] [place], [place] [phone] ACUTE ILLNESS 10/14/2012 Patient Education: Patient Medication Summary Completed 10/14/2012 Appointment: María Elena Appiah WPtel: [address] [place] [address] UA 09/27/2012 Patient Education: Patient Medication Summary Completed 09/27/2012 Appointment: María Elena Appiah WPtel: [address] [place] [address] ACUTE ILLNESS 09/25/2012 Patient Education: Patient Medication Summary Completed 09/25/2012 Appointment: María Elena Appiah WPtel: [address] [place] [address] BP CHECK 09/24/2012 Appointment: María Elena Appiah WPtel: [address] [place] [address] ACUTE ILLNESS 08/29/2012 Patient Education: Patient Medication Summary Completed 08/29/2012 Visit Plan: Cryotherapy as above See Karlos m for right ear lesion--probable MOHs procedure Increase amlodopine to 10mg daily 08/12/2012 Appointment: María Elena Appiah WPtel: [address] [place], [place] [phone] OFFICE SURGERY 08/12/2012 Patient Education: Patient Medication Summary Completed 08/12/2012 Appointment: María Elena Appiah WPtel: [address] [place], [place] [phone] 05/03 vm on pt phone...pt called on 04/11 3 pt called wanting in had no one cancel so could not get her in for an appt sooner than 05/06. ACUTE ILLNESS 05/06/2012 Patient Education: Patient Medication Summary Completed 05/06/2012 Visit Plan: Pt wants to hold on any furt her sleep medications 04/03/2012 Appointment: María Elena Appiahtel: [address] [place] [address] FOLLOW UP 04/03/2012 Patient Education: Patient Medication Summary Completed 04/03/2012 Appointment: María Elena Appiah WPtel: [address] [place] [address] FOLLOW UP 03/19/2012 Patient Education: Patient Medication Summary Completed 03/19/2012 Appointment: María Elena Appiahtel: [address] [place] [address] BP CHECK 02/22/2012 Patient Education: Patient Medication Summary Completed 02/22/2012 Appointment: María Elena Appiah WPtel: [address] [place] [address] BP CHECK 02/21/2012 Patient Education: Patient Medication Summary Completed 02/21/2012 Visit Plan: Doxycycline and bactroban fo r foot Supportive care on ankles and knees Add norvasc for BP 02/20/2012 Appointment: María Elena Appiahtel: [address] [place] [address] ER Follow UP 02/20/2012 Patient Education: Patient Medication Summary Completed 02/20/2012 Appointment: María Elena Appiahtel: [address] [place] [address] ACUTE ILLNESS 01/30/2012 Patient Education: Patient Medication Summary Completed 01/30/2012 Appointment: María Elena Appiahtel: [address] [place] [address] ACUTE ILLNESS 01/24/2012 Patient Education: Patient Medication Summary Completed 01/24/2012 Visit Plan: Daily back stretches, moist heat, Biofreeze prn OMT done 01/10/2012 Appointment: María Elena Appiah WPtel: [address] [place] [address] ACUTE ILLNESS 01/10/2012 Patient Education: Patient Medication Summary Completed 01/10/2012 Appointment: María Elena Appiah WPtel: [address] [place] [address] FOLLOW UP 12/11/2011 Patient Education: Patient Medication Summary Completed 12/11/2011 Appointment: María Elena Appiah WPtel: [address] [place] [address] ACUTE ILLNESS 11/09/2011 Patient Education: Patient Medication Summary Completed 11/09/2011 Appointment: María Elena Appiah WPtel: [address] [place] [address] ACUTE ILLNESS 09/13/2011 Patient Education: Patient Medication Summary Completed 09/13/2011 Visit Plan: Check CBC, TSH, Free T4, CMP , ESR, Vit D, B12 now Start Prednisone today 08/31/2011 Appointment: María Elena Appiah WPtel: [address] [place] [address] ACUTE ILLNESS 08/31/2011 Patient Education: Patient Medication Summary Completed 08/31/2011 Appointment: María Elena Appiah WPtel: [address] [place] [address] US INJECTION 07/20/2011 Patient Education: Patient Medication Summary Completed 07/20/2011 Visit Plan: Continue current meds Monite r BP Cont stretches from PT 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 07/06/2011 Appointment: María Elena Appiahtel: [address] [place] [address] FOLLOW UP 07/06/2011 Patient Education: Patient Medication Summary Completed 07/06/2011 Appointment: María Elena Appiah WPtel: [address] [place] [address] BP CHECK 06/06/2011 Patient Education: Patient Medication Summary Completed 06/06/2011 Visit Plan: Add Bystolic at 2.5mg QAM Ad d Robaxin 750mg 2 po q HS BP check in 2wks 05/22/2011 Appointment: María Elena Appiah WPtel: [address] [place], [place] [phone] FOLLOW UP 05/22/2011 Patient Education: Patient Medication Summary Completed 05/22/2011 Appointment: María Elena Appiah WPtel: [address] [place], [place] [id number] ER Follow UP 05/09/2011 Patient Education: Patient Medication Summary Completed 05/09/2011 Appointment: María Elena Appiah WPtel: [address] [place], [place] [phone] FOLLOW UP 02/22/2011 Visit Plan: Rx written for Hydrocodone 1 0/325mg #240 See Ortho 02/14/2011 Appointment: María Elena Appiah WPtel: [address] [place] [address] OMT 02/14/2011 Patient Education: Patient Medication Summary [...] work. 02/03/2011 Appointment: Lashawn Eckert WPtel: [address] [place], [place] [phone] ACUTE ILLNESS 02/03/2011 Patient Education: Patient Medication Summary Completed 02/03/2011 Visit Plan: OMT done Cont daily stretche s 01/31/2011 Appointment: María Elena Appiah WPtel: [address] [place] [address] ACUTE ILLNESS 01/31/2011 Patient Education: Patient Medication Summary Completed 01/31/2011 Visit Plan: Continue pain meds OMT done Proceed with PT No work this summer01/25/2011 Appointment: María Elena Appiah WPtel: [address] [place] [address] ACUTE ILLNESS 01/25/2011 Patient Education: Patient Medication Summary Completed 01/25/2011 Visit Plan: Start PT Long discussion abo ut getting pain meds from only and can only have max of 4grams of tylenol per day Change to Hydrocodone 10/325mg 1- 2 po TID prn pain--#180 called to [facility] 01/18/2011 Appointment: María Elena Appiah WPtel: [address] [place] [address] FOLLOW UP 01/18/2011 Patient Education: Patient Medication Summary Completed 01/18/2011 Visit Plan: Daily back stretches, moist heat, Biofreeze prn 11/29/2010 Appointment: María Elena Appiah WPtel: [address] [place] [address] ER Follow UP 11/29/2010 Patient Education: Patient Medication Summary Completed 11/29/2010 Visit Plan: Saline nasal flushes prn. Ty lenol/Motrin prn headache. Notify if persists/symptoms worsening. Finish augmentin Add Medrol Dose Pack 10/10/2010 Appointment: María Elena Appiah WPtel: [address] [place] [address] ACUTE ILLNESS 10/10/2010 Patient Education: Patient Medication Summary Completed 10/10/2010 Visit Plan: Cryotherapy x3 to multiple l esions on both forearms 07/19/2010 Appointment: María Elena Appiah WPtel: [address] [place], [place] [phone] US OFFICE SURGERY 07/19/2010 Patient Education: Patient Medication Summary Completed 07/19/2010 Appointment: María Elena Appiah WPtel: [address] [place] [address] BP CHECK 07/06/2010 Patient Education: Patient Medication Summary Completed 07/06/2010 Appointment: María Elena Appiah WPtel: [address] [place] [address] BP CHECK 06/30/2010 Patient Education: Patient Medication Summary Completed 06/30/2010 Appointment: María Elena Appiah WPtel: [address] [place] [address] BP CHECK 06/20/2010 Patient Education: Patient Medication Summary Completed 06/20/2010 Visit Plan: Change Diovan to Exforge 160 /5mg QD OMT done to thoracics BP check in 2wks 06/07/2010 Appointment: María Elena Appiah WPtel: [address] [place] [address] FOLLOW UP 06/07/2010 Patient Education: Patient Medication Summary Completed 06/07/2010 Appointment: María Elena Appiahtel: [address] [place] [address] BP CHECK 06/03/2010 Patient Education: Patient Medication Summary Completed 06/03/2010 Appointment: María Elena Appiah WPtel: [address] [place] [address] BP CHECK 06/01/2010 Patient Education: Patient Medication Summary Completed 06/01/2010 Visit Plan: Irritated skin tags to left neck x2 excised at base with scissors and base cauterized 05/30/2010 Appointment: María Elena Appiah WPtel: [address] [place] [address] OFFICE SURGERY 05/30/2010 Patient Education: Patient Medication Summary Completed 05/30/2010 Visit Plan: Saline nasal flushes prn. Ty lenol/Motrin prn headache. Notify if persists/symptoms worsening. Restart Nasonex Has allergy testing set for May 25 04/27/2010 Appointment: María Elena Appiahtel: [address] [place] [address] ACUTE ILLNESS 04/27/2010 Patient Education: Patient Medication Summary Completed 04/27/2010 Visit Plan: Saline nasal flushes prn. Ty lenol/Motrin prn headache. Notify if persists/symptoms worsening. Omnaris BID plus injections 04/05/2010 Appointment: María Elena Appiahtel: [address] [place] [address] ACUTE ILLNESS 04/05/2010 Patient Education: Patient Medication Summary Completed 04/05/2010 Visit Plan: Saline nasal flushes prn. Ty lenol/Motrin prn headache. Notify if persists/symptoms worsening. 03/09/2010 Appointment: María Elena Appiah WPtel: [address] [place] [address] ACUTE ILLNESS 03/09/2010 Patient Education: Patient Medication Summary Completed 03/09/2010 Visit Plan: Cont Clonidine as is Cont Pr emarin Fwup with surgery as scheduled 03/03/2010 Appointment: María Elena Appiahtel: [address] [place] [address] FOLLOW UP 03/03/2010 Patient Education: Patient Medication Summary Completed 03/03/2010 Visit Plan: Check Pelvic US now Discusse d Dand C vs Hysterectomy 01/17/2010 Appointment: María Elena Appiahtel: [address] [place] [address] ACUTE ILLNESS 01/17/2010 Patient Education: Patient Medication Summary Completed 01/17/2010 Visit Plan: Check fasting lab and schedu le Mammogram 2gm Na Diet Trial of Ambien 10mg qhs Fwup pending lab results 12/27/2009 Appointment: María Elena Appiahtel: [address] [place] [address] ESTABLISHED PATIENT 12/27/2009 Patient Education: Patient Medication Summary Completed 12/27/2009 Referral: Tian Canelo Pollardan WPtel: [address] [id number] [place] Referral Initiated Referral: Philipp Flores WPtel: [address] [id number] [place] Referral Appointment Requested Instructions Comment . [...] to rest and hydrate. Discussed stroke and [place] symptoms. Pt. instructed to seek ER eval [...] Mammogr am 2gm Na Diet Trial of Uday 10mg qhs Fwup pending lab results Medical Equipment No Medical Equipment data Health Concerns Section Health Concerns data not found Goals Section Goals data not found Interventions Section Interventions data not found Health Status Evaluations/Outcomes Section Health Status Evaluations/Outcomes data not found Advance Directives No Advance Directive data
--- OUTSIDE RECORDS SUMMARY | 2020-03-13 06:17 | XMS REPORT | CCD ---
Author Author Gale Appiah D.O. 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 Name Role Phone María Elena Appiah D.O., PP Unavailable CCM Unavailable Summary Purpose Interface Exchange Insurance Providers Payer name Policy type / Coverage type Covered republican ID Effective Begin Date Effective End Date [facility] Commercial Insurance [id number] Unknown Family History Family History data not found Social History Social History Element Codes Description Effective Dates Tobacco history SNOMED CT: 602714252 Never smoker 05/22/2011 Allergies, Adverse Reactions, Alerts [...] Fill Instructions Keflex 500 mg capsule RxNorm: 647148 1 Capsule(s) Oral two time s a day 10/07/2019 10/14/2019 Active Premarin 1.25 mg tablet RxNorm: 239939 1 Tablet(s) Oral QD 09/30/1906/25/2020 Active hydrocodone 10 mg-acetaminophen 325 mg tablet RxNorm: 333254 1-2 Tablet(s) Oral three times a day as needed for pain 09/30/2019 09/30/2019 Inactive gabapentin 300 mg capsule RxNorm: 627788 TAKE ONE CAPSU LE BY MOUTH EVERY NIGHT AT BEDTIME 09/19/2019 No Stop Date Active baclofen 10 mg tablet RxNorm: 242000 TAKE ONE TABLET BY MOUTH THREE TIMES A DAY NEEDED 09/19/2019 No Stop Date Active Klor-Con 8 mEq tablet,extended release RxNorm: 165869 T FARRUKH ONE TABLET BY MOUTH TWICE A DAY 1 Tablet(s) Oral two times a day 09/19/2019 10/19/2019 Act darion hydrocodone 10 mg-acetaminophen 325 mg tablet RxNorm: 722487 1-2 Tablet(s) Oral three times a day as needed for pain 09/19/2019 09/29/2019 Inactive duloxetine 60 mg capsule,delayed release RxNorm: 299252 TAKE ONE CAPSULE BY MOUTH DAILY 09/11/2019 No Stop Date Active Lipitor 10 mg tablet RxNorm: 246630 TAKE ONE TABLET BY MOUTH AT BEDTIME 09/11/2019 No Stop Date Active lisinopril 20 mg tablet RxNorm: 688084 TAKE ONE TABLET BY MOUTH DAILY .... THIS REPLACE 10MG TABLETS 09/11/2019 No Stop Date Active triamterene 75 mg-hydrochlorothiazide 50 mg tablet RxNorm: 3 72663 TAKE ONE TABLET BY MOUTH DAILY 09/11/2019 No Stop Date Active allopurinol 300 mg tablet RxNorm: 571564 TAKE ONE TABLET BY LOPEZ TH DAILY 09/11/2019 No Stop Date Active celecoxib 200 mg capsule RxNorm: 348130 TAKE ONE CAPSUL E BY MOUTH TWICE A DAY NEEDED FOR PAIN 09/11/2019 No Stop Date Active clonidine HCl 0.1 mg tablet RxNorm: 363401 TAKE ONE TAB LET BY MOUTH FOUR TIMES A DAY 09/11/2019 No Stop Date Active doxepin 25 mg capsule RxNorm: 4905447 1 Capsule(s) Oral every night at bedtime as needed for sleep 08/21/2019 11/18/2019 Active hydrocodone 10 mg-acetaminophen 325 mg tablet RxNorm: 579621 1-2 Tablet(s) PO TID 08/12/2019 09/29/2019 Inactive as needed for pa in - Previous quantity #240, will start dosing for #180 in April 2011 per Doctor Td. Medrol (Dustin) 4 mg tablets in a dose pack RxNorm: 698960 Tablet(s) Oral As Directed 07/21/2019 09/29/2019 Inactive Premarin 1.25 mg tablet RxNorm: 618782 1 Tablet(s) Oral QD 07/02/20 19 09/29/2019 Inactive hydrocodone 10 mg-acetaminophen 325 mg tablet RxNorm: 686131 1-2 Tablet(s) PO TID 07/01/2019 08/11/2019 Inactive as needed for pa in - Previous quantity #240, will start dosing for #180 in April 2011 per Doctor Td. gabapentin 300 mg capsule RxNorm: 484790 1 Capsule(s) PO QHS 201809/18/2019 Inactive celecoxib 200 mg capsule RxNorm: 980786 1 Capsule(s) Or al two times a day as needed for pain 06/27/2019 06/27/2019 Inactive Singulair 10 mg tablet RxNorm: 901449 TAKE ONE TABLET BY MOUTH JOSÉ Y 06/24/2019 No Stop Date Active furosemide 40 mg tablet RxNorm: 141993 TAKE ONE TABLET BY MOUTH EVERY MORNING NEEDED FOR EDEMA . TAKE WITH POTASSIUM 06/24/2019 No Stop Date Active doxepin 25 mg capsule RxNorm: 9236283 TAKE ONE CAPSULE B Y MOUTH EVERY NIGHT AT BEDTIME NEEDED FOR SLEEP 06/24/2019 08/20/2019 Inactive lisinopril 20 mg tablet RxNorm: 691793 TAKE ONE TABLET BY MOUTH DAILY .... THIS REPLACE 10MG TABLETS 06/24/2019 09/10/2019 Inactive nystatin-triamcinolone 100,000 unit/g-0.1 % topical cream Rx Norm: 8448567 1 Application Topical two times a day 06/12/2019 06/19/2019 Inactive apply BID for 1 week nystatin-triamcinolone 100,000 unit/g-0.1 % topical cream Rx Norm: 9803106 1 Application Topical two times a day 06/12/2019 06/11/2019 Inactive apply BID for 1 week hydrocodone 10 mg-acetaminophen 325 mg tablet RxNorm: 475291 1-2 Tablet(s) PO QID as needed for pain MUST LAST 30 DAYS 05/28/2019 06/26/2019 Inactiv e (Response to an electronic controlled substance refill request - RxReferenceNumber: [id number]) baclofen 20 mg tablet RxNorm: 397355 1 Tablet(s) PO TID as needed for muscle spasm 05/19/2019 05/27/2019 Inactive gabapentin 300 mg capsule RxNorm: 627675 1 Capsule(s) PO QHS 201805/27/2019 Inactive lisinopril 20 mg tablet RxNorm: 403637 1 Tablet(s) PO Q D TAKE ONE TABLET BY MOUTH DAILY, REPLACES 10 MG DOSE 05/19/2019 06/23/2019 Inactive doxepin 25 mg capsule RxNorm: 1648653 TAKE ONE CAPSULE B Y MOUTH EVERY NIGHT AT BEDTIME NEEDED FOR SLEEP 05/16/2019 06/14/2019 Inactive lisinopril 20 mg tablet RxNorm: 315719 TAKE ONE TABLET BY MOUTH DAILY, REPLACES 10 MG DOSE 05/16/2019 05/18/2019 Inactive Singulair 10 mg tablet RxNorm: 206879 TAKE ONE TABLET BY MOUTH JOSÉ Y 05/16/2019 06/14/2019 Inactive gabapentin 300 mg capsule RxNorm: 217744 1 Capsule(s) PO QHS 201805/04/2019 Inactive estropipate 1.5 mg tablet RxNorm: 521387 1 Tablet(s) PO QD 05/05/20 19 05/27/2019 Inactive estropipate 1.5 mg tablet RxNorm: 063957 1 Tablet(s) PO QD 05/05/20 19 05/04/2019 Inactive gabapentin 300 mg capsule RxNorm: 900835 1 Capsule(s) PO QHS 201805/18/2019 Inactive hydrocodone 10 mg-acetaminophen 325 mg tablet RxNorm: 235291 1-2 Tablet(s) PO QID as needed for pain MUST LAST 30 DAYS 04/25/2019 05/24/2019 Inactiv e (Response to an electronic controlled substance refill request - RxReferenceNumber: [id number]) metoprolol tartrate 100 mg tablet RxNorm: 995177 TAKE O NE TABLET BY MOUTH TWICE A DAY 04/24/2019 06/22/2019 Inactive cyclobenzaprine 10 mg tablet RxNorm: 240097 TAKE ONE TA BLET BY MOUTH THREE TIMES A DAY NEEDED FOR MUSCLE SPASMS 04/24/2019 05/18/2019 Inactive Lyrica 75 mg capsule RxNorm: 793079 1 Capsule(s) PO QHS 03/25/2019 Inactive duloxetine 60 mg capsule,delayed release RxNorm: 058815 TAKE ONE CAPSULE BY MOUTH DAILY 03/21/2019 05/19/2019 Inactive triamterene 75 mg-hydrochlorothiazide 50 mg tablet RxNorm: 3 97665 TAKE ONE TABLET BY MOUTH DAILY 03/21/2019 05/19/2019 Inactive Klor-Con 8 mEq tablet,extended release RxNorm: 687388 T FARRUKH ONE TABLET BY MOUTH TWICE A DAY 03/21/2019 09/18/2019 Inactive Lipitor 10 mg tablet RxNorm: 554214 TAKE ONE TABLET BY MOUTH AT BEDTIME 03/21/2019 09/10/2019 Inactive clonidine HCl 0.1 mg tablet RxNorm: 573108 TAKE ONE TAB LET BY MOUTH FOUR TIMES A DAY 03/21/2019 05/19/2019 Inactive allopurinol 300 mg tablet RxNorm: 224701 TAKE ONE TABLET BY LOPEZ TH DAILY 03/21/2019 05/19/2019 Inactive hydrocodone 10 mg-acetaminophen 325 mg tablet RxNorm: 626956 1-2 Tablet(s) PO QID as needed for pain MUST LAST 30 DAYS 02/28/2019 03/29/2019 Inactiv e (Response to an electronic controlled substance refill request - [facility] [id number]) furosemide 40 mg tablet RxNorm: 769495 TAKE ONE TABLET BY MOUTH EVERY MORNING NEEDED FOR EDEMA . TAKE WITH POTASSIUM 02/21/2019 03/22/2019 Inactive cyclobenzaprine 10 mg tablet RxNorm: 498109 TAKE ONE TA BLET BY MOUTH THREE TIMES A DAY NEEDED FOR MUSCLE SPASMS 02/21/2019 04/21/2019 Inactive lisinopril 20 mg tablet RxNorm: 404579 TAKE ONE TABLET BY MOUTH DAILY, REPLACES 10 MG DOSE 02/21/2019 05/15/2019 Inactive doxepin 25 mg capsule RxNorm: 2531758 TAKE ONE CAPSULE B Y MOUTH EVERY NIGHT AT BEDTIME NEEDED FOR SLEEP 02/21/2019 05/15/2019 Inactive nystatin 100,000 unit/gram topical cream RxNorm: 577373 APPLY TO AFFECTED AREA(S) TWO TIMES A DAY 02/21/2019 03/22/2019 Inactive estradiol 1 mg tablet RxNorm: 688219 2 Tablet(s) PO QD replaces premarin 01/22/2019 05/04/2019 Inactive lisinopril 20 mg tablet RxNorm: 880549 TAKE ONE TABLET BY MOUTH DAILY, REPLACES 10 MG DOSE 01/20/2019 02/18/2019 Inactive cyclobenzaprine 10 mg tablet RxNorm: 286177 TAKE ONE TA BLET BY MOUTH THREE TIMES A DAY NEEDED FOR MUSCLE SPASMS 01/20/2019 02/18/2019 Inactive metoprolol tartrate 100 mg tablet RxNorm: 400262 TAKE O NE TABLET BY MOUTH TWICE A DAY 01/20/2019 02/18/2019 Inactive cyclobenzaprine 10 mg tablet RxNorm: 571896 TAKE ONE TA BLET BY MOUTH THREE TIMES A DAY NEEDED FOR MUSCLE SPASMS 12/19/2018 01/17/2019 Inactive lisinopril 20 mg tablet RxNorm: 877617 TAKE ONE TABLET BY MOUTH DAILY, REPLACES 10 MG DOSE 12/19/2018 01/17/2019 Inactive duloxetine 60 mg capsule,delayed release RxNorm: 108461 TAKE ONE CAPSULE BY MOUTH DAILY 12/19/2018 01/17/2019 Inactive Lipitor 10 mg tablet RxNorm: 518881 TAKE ONE TABLET BY MOUTH AT BEDTIME 12/19/2018 01/17/2019 Inactive cyclobenzaprine 10 mg tablet RxNorm: 629813 1 Tablet(s) PO TID as needed for muscle spasm 11/19/2018 12/18/2018 Inactive Singulair 10 mg tablet RxNorm: 441726 1 Tablet(s) PO QD 11/19/2018 Inactive lisinopril 20 mg tablet RxNorm: 214743 TAKE ONE TABLET BY MOUTH DAILY, REPLACES 10 MG DOSE 11/15/2018 12/18/2018 Inactive hydrocodone 10 mg-acetaminophen 325 mg tablet RxNorm: 121254 1-2 Tablet(s) PO QID as needed for pain MUST LAST 30 DAYS 11/13/2018 12/12/2018 Inactiv e (Response to an electronic controlled substance refill request - RxReferenceNumber: [id number]) nystatin 100,000 unit/gram topical cream RxNorm: 793008 APPLY TO AFFECTED AREA(S) TWO TIMES A DAY 10/23/2018 11/06/2018 Inactive lisinopril 20 mg tablet RxNorm: 606537 1 Tablet(s) PO QD replac es 10mg dose 10/18/2018 11/14/2018 Inactive hydrocodone 10 mg-acetaminophen 325 mg tablet RxNorm: 293747 1-2 Tablet(s) QID as needed for pain MUST LAST 30 DAYS 10/08/2018 11/06/2018 Inactive (Response to an electronic controlled substance refill request - RxReferenceNumber: [id number]) lisinopril 10 mg tablet RxNorm: 643739 1 Tablet(s) PO QD 10/03/2018 0 01/21/2019 Inactive Celebrex 200 mg capsule RxNorm: 229722 TAKE ONE CAPSULE BY MOUT H TWICE A DAY 09/30/2018 05/04/2019 Inactive cyclobenzaprine 10 mg tablet RxNorm: 039989 TAKE ONE TA BLET BY MOUTH THREE TIMES A DAY NEEDED FOR MUSCLE SPASMS 09/30/2018 11/18/2018 Inactive doxepin 25 mg capsule RxNorm: 1578574 TAKE ONE CAPSULE B Y MOUTH EVERY NIGHT AT BEDTIME NEEDED 09/05/2018 10/16/2018 Inactive omeprazole 40 mg capsule,delayed release RxNorm: 950178 TAKE ONE CAPSULE BY MOUTH DAILY 09/05/2018 01/21/2019 Inactive furosemide 40 mg tablet RxNorm: 136973 TAKE ONE TABLET BY MOUTH EVERY MORNING NEEDED FOR EDEMA . TAKE WITH POTASSIUM 09/05/2018 11/03/2018 Inactive phentermine 37.5 mg tablet RxNorm: 386502 1 Tablet(s) PO QAM 201701/21/2019 Inactive doxepin 25 mg capsule RxNorm: 1416742 1 Capsule(s) PO QH S as needed for sleep TAKE ONE CAPSULE BY MOUTH EVERY NIGHT AT BEDTIME NEEDED 08/27/2018 09/04/2018 Inactive Keflex 500 mg capsule RxNorm: 910681 1 Capsule(s) PO TID 08/09/2018 1 10/19/2017 Inactive Diflucan 100 mg tablet RxNorm: 139466 1 Tablet(s) PO QD 08/09/2018 Inactive Premarin 1.25 mg tablet RxNorm: 099398 2 Tablet(s) PO QD 08/09/2018 0 05/04/2019 Inactive Zofran ODT 4 mg disintegrating tablet RxNorm: 110677 1 Tablet(s) PO Q4H as needed for nausea 08/09/2018 01/21/2019 Inactive metoprolol tartrate 100 mg tablet RxNorm: 560543 TAKE O NE TABLET BY MOUTH TWICE A DAY 2018 10/04/2018 Inactive doxepin 25 mg capsule RxNorm: 0030301 TAKE ONE CAPSULE B Y MOUTH EVERY NIGHT AT BEDTIME NEEDED 2018 08/26/2018 Inactive cyclobenzaprine 10 mg tablet RxNorm: 429259 TAKE ONE TA BLET BY MOUTH THREE TIMES A DAY NEEDED FOR MUSCLE SPASMS 2018 09/29/2018 Inactive hydrocodone 10 mg-acetaminophen 325 mg tablet RxNorm: 761456 1-2 Tablet(s) QID as needed for pain MUST LAST 30 DAYS 07/29/2018 08/27/2018 Inactive (Response to an electronic controlled substance refill request - RxReferenceNumber: [id number]) nystatin 100,000 unit/gram topical powder RxNorm: 868907 Applic ation TOP BID 07/22/2018 08/04/2018 Inactive doxepin 25 mg capsule RxNorm: 9346526 1 Capsule(s) PO QHS as needed 07/22/2018 08/05/2018 Inactive triamterene 75 mg-hydrochlorothiazide 50 mg tablet RxNorm: 3 75257 TAKE ONE TABLET BY MOUTH DAILY 07/05/2018 10/02/2018 Inactive duloxetine 60 mg capsule,delayed release RxNorm: 578233 TAKE ONE CAPSULE BY MOUTH DAILY 07/05/2018 09/02/2018 Inactive Klor-Con 8 mEq tablet,extended release RxNorm: 370473 T FARRUKH ONE TABLET BY MOUTH TWICE A DAY 07/05/2018 10/02/2018 Inactive Lipitor 10 mg tablet RxNorm: 463002 TAKE ONE TABLET BY MOUTH AT BEDTIME 07/05/2018 09/02/2018 Inactive allopurinol 300 mg tablet RxNorm: 363441 TAKE ONE TABLET BY LOPEZ TH DAILY 07/05/2018 10/02/2018 Inactive clonidine HCl 0.1 mg tablet RxNorm: 163003 TAKE ONE TAB LET BY MOUTH FOUR TIMES A DAY 07/05/2018 10/02/2018 Inactive hydrocodone 10 mg-acetaminophen 325 mg tablet RxNorm: 636641 1-2 Tablet(s) QID as needed for pain MUST LAST 30 DAYS 06/28/2018 07/27/2018 Inactive (Response to an electronic controlled substance refill request - RxReferenceNumber: [id number]) MediHoney (calcium alginate-honey) 4" X 5" bandage RxNorm: 1 Application TOP QD 06/17/2018 06/26/2018 Inactive honey-hydrocolloid dressing 4" X 5" RxNorm: 1 Application TOP QD 06/17/2018 07/16/2018 Inactive furosemide 40 mg tablet RxNorm: 937499 TAKE ONE TABLET BY MOUTH EVERY MORNING NEEDED FOR EDEMA . TAKE WITH POTASSIUM 06/10/2018 07/09/2018 Inactive This is a refill request. hydrocodone 10 mg-acetaminophen 325 mg tablet RxNorm: 233536 1-2 Tablet(s) QID as needed for pain MUST LAST 30 DAYS 05/30/2018 06/27/2018 Inactive (Response to an electronic controlled substance refill request - RxReferenceNumber: [id number]) acyclovir 800 mg tablet RxNorm: 876237 1 Tablet(s) PO 5x day 201705/22/2018 Inactive Premarin 1.25 mg tablet RxNorm: 555216 1-2 Tablet(s) PO QD 05/15/20 18 07/13/2018 Inactive cyclobenzaprine 10 mg tablet RxNorm: 816339 1 Tablet(s) PO TID as needed for muscle spasm 05/09/2018 05/08/2018 Inactive Medrol (Dustin) 4 mg tablets in a dose pack RxNorm: 546023 Tablet(s) PO As Directed 05/02/2018 06/16/2018 Inactive hydrocodone 10 mg-acetaminophen 325 mg tablet RxNorm: 093963 1-2 Tablet(s) QID as needed for pain MUST LAST 30 DAYS 04/30/2018 05/29/2018 Inactive (Response to an electronic controlled substance refill request - RxReferenceNumber: [id number]) duloxetine 60 mg capsule,delayed release RxNorm: 554519 TAKE ONE CAPSULE BY MOUTH DAILY 04/16/2018 05/15/2018 Inactive Celebrex 200 mg capsule RxNorm: 280876 TAKE ONE CAPSULE BY MOUT H TWICE A DAY 04/16/2018 06/14/2018 Inactive Singulair 10 mg tablet RxNorm: 618839 TAKE ONE TABLET BY MOUTH JOSÉ Y 04/16/2018 11/19/2018 Inactive Lipitor 10 mg tablet RxNorm: 458092 TAKE ONE TABLET BY MOUTH AT BEDTIME 04/16/2018 05/15/2018 Inactive hydrocodone 10 mg-acetaminophen 325 mg tablet RxNorm: 221725 1-2 Tablet(s) QID as needed for pain MUST LAST 30 DAYS 03/29/2018 04/27/2018 Inactive (Response to an electronic controlled substance refill request - RxReferenceNumber: [id number]) cyclobenzaprine 10 mg tablet RxNorm: 729364 1 Tablet(s) PO TID as needed for muscle spasm 03/18/2018 05/09/2018 Inactive omeprazole 40 mg capsule,delayed release RxNorm: 963592 1 Capsu le(s) PO QD 02/26/2018 08/24/2018 Inactive hydrocodone 10 mg-acetaminophen 325 mg tablet RxNorm: 610532 1-2 Tablet(s) QID as needed for pain MUST LAST 30 DAYS 02/26/2018 03/27/2018 Inactive (Response to an electronic controlled substance refill request - RxReferenceNumber: [id number]) metoprolol tartrate 100 mg tablet RxNorm: 297833 1 Tablet(s) PO BID 02/18/2018 08/05/2018 Inactive Lyrica 75 mg capsule RxNorm: 146667 1 Capsule(s) PO QHS 01/30/2018 Inactive phentermine 37.5 mg tablet RxNorm: 564700 1 Tablet(s) PO QAM 201706/16/2018 Inactive hydrocodone 10 mg-acetaminophen 325 mg tablet RxNorm: 954792 1-2 Tablet(s) QID as needed for pain MUST LAST 30 DAYS 01/29/2018 02/25/2018 Inactive (Response to an electronic controlled substance refill request - RxReferenceNumber: [id number]) Klor-Con 8 mEq tablet,extended release RxNorm: 135704 1 Tablet( s) PO BID 01/14/2018 07/04/2018 Inactive allopurinol 300 mg tablet RxNorm: 886379 1 Tablet(s) PO QD 01/15/2007/04/2018 Inactive Lipitor 10 mg tablet RxNorm: 890962 1 Tablet(s) PO QHS 01/14/201812/2017 Inactive triamterene 75 mg-hydrochlorothiazide 50 mg tablet RxNorm: 3 68268 1 Tablet(s) PO QD 01/14/2018 07/04/2018 Inactive hydrocodone 10 mg-acetaminophen 325 mg tablet RxNorm: 417683 1-2 Tablet(s) QID as needed for pain MUST LAST 30 DAYS 12/27/2017 01/25/2018 Inactive (Response to an electronic controlled substance refill request - RxReferenceNumber: [id number]) Onglyza 5 mg tablet RxNorm: 010132 1 Tablet(s) PO QD 12/18/201701/29 Inactive metformin 500 mg tablet RxNorm: 012546 1 Tablet(s) PO BID 12/11/2017 12/10/2017 Inactive metformin 500 mg tablet RxNorm: 098823 1 Tablet(s) PO BID 12/11/2017 12/17/2017 Inactive furosemide 40 mg tablet RxNorm: 808651 1 Tablet(s) PO Q AM prn edema--take with potassium 12/11/2017 06/08/2018 Inactive cyclobenzaprine 10 mg tablet RxNorm: 726243 1 Tablet(s) PO TID as needed for muscle spasm 12/11/2017 03/18/2018 Inactive hydrocodone 10 mg-acetaminophen 325 mg tablet RxNorm: 018738 1-2 Tablet(s) QID as needed for pain MUST LAST 30 DAYS 10/23/2017 11/21/2017 Inactive (Response to an electronic controlled substance refill request - RxReferenceNumber: [id number]) Lipitor 10 mg tablet RxNorm: 769955 1 Tablet(s) PO QHS 10/16/201703/2018 Inactive cyclobenzaprine 10 mg tablet RxNorm: 176261 1 Tablet(s) PO TID as needed for muscle spasm 10/09/2017 12/10/2017 Inactive hydroxyzine HCl 25 mg tablet RxNorm: 166207 1 Tablet(s) PO BID as needed for anxiety 09/20/2017 01/29/2018 Inactive Effexor XR 75 mg capsule,extended release RxNorm: 183349 1 Caps ule(s) PO QD 09/20/2017 01/29/2018 Inactive metoprolol tartrate 100 mg tablet RxNorm: 882412 1 Tablet(s) PO BID 08/20/2017 02/18/2018 Inactive baclofen 20 mg tablet RxNorm: 344039 1 Tablet(s) PO TID as needed for muscle spasm 08/20/2017 01/21/2019 Inactive clonidine HCl 0.1 mg tablet RxNorm: 887582 1 Tablet(s) PO QID 08/2005/16/2018 Inactive Seroquel 25 mg tablet RxNorm: 785708 1 Tablet(s) PO QHS 08/17/2017 Inactive Seroquel 25 mg tablet RxNorm: 895472 1 Tablet(s) PO QHS 08/17/2017 Inactive Diflucan 100 mg tablet RxNorm: 349194 TAKE ONE TABLET BY MOUTH JOSÉ Y 07/25/2017 08/07/2017 Inactive hydrocodone 10 mg-acetaminophen 325 mg tablet RxNorm: 692901 1-2 Tablet(s) QID as needed for pain MUST LAST 30 DAYS 07/19/2017 08/17/2017 Inactive (Response to an electronic controlled substance refill request - RxReferenceNumber: [id number]) clindamycin 300 mg capsule RxNorm: 365602 1 Capsule(s) PO TID 07/1907/28/2017 Inactive clotrimazole-betamethasone 1 %-0.05 % topical cream RxNorm: 382540 Application TOP BID to elbow rash 07/19/2017 06/16/2018 Inactive Singulair 10 mg tablet RxNorm: 208672 Tablet(s) TAKE ONE TABLET BY MOUTH DAILY 07/18/2017 04/13/2018 Inactive triamterene 75 mg-hydrochlorothiazide 50 mg tablet RxNorm: 3 30355 1 Tablet(s) PO QD 07/18/2017 01/14/2018 Inactive Celebrex 200 mg capsule RxNorm: 077665 Capsule(s) TAKE ONE CAPSULE BY MOUTH TWICE A DAY 07/18/2017 10/15/2017 Inactive hydrocodone 10 mg-acetaminophen 325 mg tablet RxNorm: 831235 1-2 Tablet(s) QID as needed for pain MUST LAST 30 DAYS 06/19/2017 07/18/2017 Inactive (Response to an electronic controlled substance refill request - RxReferenceNumber: [id number]) hydrocodone 10 mg-acetaminophen 325 mg tablet RxNorm: 438204 1-2 Tablet(s) QID as needed for pain MUST LAST 30 DAYS 06/19/2017 06/18/2017 Inactive (Response to an electronic controlled substance refill request - RxReferenceNumber: [id number]) baclofen 20 mg tablet RxNorm: 962673 1 Tablet(s) PO TID as needed for muscle spasm 06/18/2017 08/20/2017 Inactive Medrol (Dustin) 4 mg tablets in a dose pack RxNorm: 808889 Tablet(s) PO As Directed 06/05/2017 07/18/2017 Inactive omeprazole 40 mg capsule,delayed release RxNorm: 408190 1 Capsu le(s) PO QD 04/20/2017 10/16/2017 Inactive Premarin 1.25 mg tablet RxNorm: 124340 1-2 Tablet(s) PO QD 04/11/20 17 05/15/2018 Inactive duloxetine 60 mg capsule,delayed release RxNorm: 171806 1 Capsu le(s) PO QD 04/11/2017 09/19/2017 Inactive furosemide 40 mg tablet RxNorm: 256406 1 Tablet(s) PO Q AM prn edema--take with potassium 04/11/2017 12/11/2017 Inactive Klor-Con 8 mEq tablet,extended release RxNorm: 561857 1 Tablet( s) PO BID 04/11/2017 01/14/2018 Inactive Lipitor 10 mg tablet RxNorm: 221920 1 Tablet(s) PO QHS 04/11/201702/2018 Inactive amlodipine 5 mg-benazepril 20 mg capsule RxNorm: 859850 1 Capsu le(s) PO QD 04/11/2017 01/29/2018 Inactive allopurinol 300 mg tablet RxNorm: 607190 1 Tablet(s) PO QD 04/11/20 17 01/14/2018 Inactive clonidine HCl 0.1 mg tablet RxNorm: 658586 1 Tablet(s) PO QID 04/0508/19/2017 Inactive baclofen 20 mg tablet RxNorm: 050084 1 Tablet(s) PO TID as needed for muscle spasm 04/02/2017 06/18/2017 Inactive Premarin 1.25 mg tablet RxNorm: 556661 1-2 Tablet(s) PO QD 03/20/20 17 04/10/2017 Inactive hydrocodone 10 mg-acetaminophen 325 mg tablet RxNorm: 606134 1-2 Tablet(s) QID as needed for pain MUST LAST 30 DAYS 03/14/2017 01/21/2019 Inactive (Response to an electronic controlled substance refill request - RxReferenceNumber: [id number]) metoprolol tartrate 100 mg tablet RxNorm: 384076 1 Tablet(s) PO BID 02/12/2017 08/20/2017 Inactive hydrocodone 10 mg-acetaminophen 325 mg tablet RxNorm: 108358 1-2 Tablet(s) QID as needed for pain MUST LAST 30 DAYS 02/08/2017 03/09/2017 Inactive (Response to an electronic controlled substance refill request - RxReferenceNumber: [id number]) metoprolol tartrate 100 mg tablet RxNorm: 212267 TAKE O NE TABLET BY MOUTH TWICE A DAY 01/11/2017 02/12/2017 Inactive metoprolol tartrate 100 mg tablet RxNorm: 742604 1 Tablet(s) PO BID 12/18/2016 12/17/2016 Inactive metoprolol tartrate 100 mg tablet RxNorm: 097474 1 Tablet(s) PO BID 12/18/2016 01/10/2017 Inactive furosemide 40 mg tablet RxNorm: 714226 1 Tablet(s) PO Q AM prn edema--take with potassium 12/13/2016 02/10/2017 Inactive amitriptyline 100 mg tablet RxNorm: 190149 1 Tablet(s) PO QHS 11/2812/12/2016 Inactive baclofen 20 mg tablet RxNorm: 950802 1 Tablet(s) PO TID as needed for muscle spasm 11/14/2016 04/01/2017 Inactive triamterene 75 mg-hydrochlorothiazide 50 mg tablet RxNorm: 3 11313 1 Tablet(s) PO QD 11/14/2016 11/13/2016 Inactive metolazone 2.5 mg tablet RxNorm: 546020 TAKE ONE TABLET BY MOUTH DAILY NEEDED FOR EDEMA 11/14/2016 12/12/2016 Inactive triamterene 75 mg-hydrochlorothiazide 50 mg tablet RxNorm: 3 28972 1 Tablet(s) PO QD 11/14/2016 07/18/2017 Inactive amitriptyline 50 mg tablet RxNorm: 313713 TAKE ONE TABL ET BY MOUTH AT BEDTIME NEEDED FOR SLEEP 11/14/2016 11/27/2016 Inactive Cymbalta 60 mg capsule,delayed release RxNorm: 224602 1 Capsule (s) PO QHS 11/14/2016 12/12/2016 Inactive clonidine HCl 0.1 mg tablet RxNorm: 367396 1 Tablet(s) PO QID 11/1304/04/2017 Inactive amitriptyline 50 mg tablet RxNorm: 678040 1 Tablet(s) P O QHS as needed for sleep 11/01/2016 11/27/2016 Inactive duloxetine 60 mg capsule,delayed release RxNorm: 375197 TAKE ONE CAPSULE BY MOUTH DAILY 10/20/2016 01/17/2017 Inactive allopurinol 300 mg tablet RxNorm: 128813 TAKE ONE TABLET BY LOPEZ TH DAILY 10/20/2016 01/16/2017 Inactive Lyrica 75 mg capsule RxNorm: 255250 TAKE ONE CAPSULE BY MOUTH EVERY NIGHT AT BEDTIME 10/20/2016 12/10/2016 Inactive Klor-Con 8 mEq tablet,extended release RxNorm: 938169 T FARRUKH ONE TABLET BY MOUTH TWICE A DAY 10/20/2016 01/17/2017 Inactive Celebrex 200 mg capsule RxNorm: 825517 TAKE ONE CAPSULE BY MOUT H TWICE A DAY 10/20/2016 07/18/2017 Inactive Bystolic 10 mg tablet RxNorm: 868164 TAKE ONE TABLET BY MOUTH EVERY NIGHT AT BEDTIME 10/20/2016 12/17/2016 Inactive amlodipine 5 mg-benazepril 20 mg capsule RxNorm: 662026 TAKE ONE CAPSULE BY MOUTH EVERY NIGHT AT BEDTIME -- TO REPLACE AMLODOPINE 10/20/20162016 Inactive Lipitor 10 mg tablet RxNorm: 253962 TAKE ONE TABLET BY MOUTH EVERY NIGHT AT BEDTIME 10/20/2016 01/17/2017 Inactive alprazolam 0.5 mg tablet RxNorm: 399491 3 Tablet(s) PO QHS as needed for sleep/anxiety 09/20/2016 10/31/2016 Inactive Tamiflu 75 mg capsule RxNorm: 481217 1 Capsule(s) PO QD 09/19/2016 Inactive Lyrica 75 mg capsule RxNorm: 200536 1 Capsule(s) PO QHS 09/19/2016 Inactive prednisone 20 mg tablet RxNorm: 502377 1 Tablet(s) PO QD 08/10/2016 1 10/17/2015 Inactive doxycycline hyclate 100 mg capsule RxNorm: 6214366 1 Capsule(s) PO BID 08/10/2016 08/19/2016 Inactive Medrol (Dustin) 4 mg tablets in a dose pack RxNorm: 892966 Tablet(s) PO As Directed 07/31/2016 08/22/2016 Inactive Singulair 10 mg tablet RxNorm: 110478 TAKE ONE TABLET BY MOUTH JOSÉ Y 07/27/2016 07/18/2017 Inactive hydrocodone 10 mg-acetaminophen 325 mg tablet RxNorm: 490653 1-2 Tablet(s) QID as needed for pain MUST LAST 30 DAYS 07/26/2016 08/24/2016 Inactive (Response to an electronic controlled substance refill request - RxReferenceNumber: [id number]) alprazolam 0.5 mg tablet RxNorm: 842520 3 Tablet(s) PO QHS as needed for anxiety or sleep 07/26/2016 09/20/2016 Inactive clindamycin 300 mg capsule RxNorm: 014057 1 Capsule(s) PO TID 07/2007/29/2016 Inactive Diflucan 100 mg tablet RxNorm: 804548 1 Tablet(s) PO QD 07/20/2016 Inactive Levaquin 500 mg tablet RxNorm: 571486 1 Tablet(s) PO QD 07/17/2016 Inactive Levaquin 500 mg tablet RxNorm: 718277 1 Tablet(s) PO QD 07/10/2016 Inactive Levaquin 500 mg tablet RxNorm: 247317 1 Tablet(s) PO QD 07/10/2016 Inactive mupirocin 2 % topical ointment RxNorm: 606188 TOP Apply topically to affected areas twice daily 07/06/2016 09/18/2016 Inactive Singulair 10 mg tablet RxNorm: 886194 TAKE ONE TABLET BY MOUTH JOSÉ Y 06/21/2016 01/21/2019 Inactive alprazolam 0.5 mg tablet RxNorm: 058493 TAKE THREE TABL ETS BY MOUTH AT BEDTIME NEEDED FOR SLEEP OR STRESS 05/22/2016 06/20/2016 Inactive triamterene 75 mg-hydrochlorothiazide 50 mg tablet RxNorm: 3 20906 1 Tablet(s) PO QD 04/26/2016 10/21/2016 Inactive Premarin 1.25 mg tablet RxNorm: 018924 1-2 Tablet(s) PO QD 04/26/20 16 03/20/2017 Inactive Klor-Con 8 mEq tablet,extended release RxNorm: 503033 1 Tablet( s) PO BID 04/26/2016 10/19/2016 Inactive Celebrex 200 mg capsule RxNorm: 313142 1 Capsule(s) PO BID TAKE ONE CAPSULE BY MOUTH EVERY DAY 04/26/2016 10/19/2016 Inactive Lipitor 10 mg tablet RxNorm: 135468 1 Tablet(s) PO QHS 04/26/201605/2017 Inactive allopurinol 300 mg tablet RxNorm: 041414 1 Tablet(s) PO QD TAKE ONE TABLET BY MOUTH EVERY DAY 04/26/2016 10/19/2016 Inactive amlodipine 5 mg-benazepril 20 mg capsule RxNorm: 903970 1 Capsule(s) PO QHS replaces amlodopine 04/26/2016 10/19/2016 Inactive duloxetine 60 mg capsule,delayed release RxNorm: 356275 1 Capsu le(s) PO QD 04/26/2016 10/19/2016 Inactive Bystolic 10 mg tablet RxNorm: 019550 1 Tablet(s) PO QHS 04/26/2016 Inactive Singulair 10 mg tablet RxNorm: 342342 1 Tablet(s) PO QD TAKE ONE TABLET BY MOUTH DAILY 04/26/2016 06/20/2016 Inactive clonidine HCl 0.1 mg tablet RxNorm: 977091 1 Tablet(s) PO QID 04/2610/22/2016 Inactive hydrocodone 10 mg-acetaminophen 325 mg tablet RxNorm: 349550 1-2 Tablet(s) QID as needed for pain TAKE ONE TO TWO TABLETS BY MOUTH FOUR TIMES A DAY . MUST LAST 30 DAYS 03/31/2016 04/29/2016 Inactive (Response to an electronic controlled substance refill request - RxReferenceNumber: [id number]) Klor-Con 8 mEq tablet,extended release RxNorm: 380689 T FARRUKH ONE TABLET BY MOUTH TWICE A DAY 03/24/2016 09/29/2019 Inactive prednisone 20 mg tablet RxNorm: 695817 1 Tablet(s) PO QD 03/09/2016 0 03/08/2016 Inactive prednisone 20 mg tablet RxNorm: 986146 1 Tablet(s) PO QD 03/09/2016 0 03/13/2016 Inactive alprazolam 0.5 mg tablet RxNorm: 227156 3 Tablet(s) PO QHS as needed for sleep/stress 03/02/2016 01/21/2019 Inactive mupirocin 2 % topical ointment RxNorm: 332803 TOP twice daily to affected areas of face and neck 02/21/2016 04/25/2016 Inactive clonidine HCl 0.1 mg tablet RxNorm: 202697 TAKE ONE TAB LET BY MOUTH FOUR TIMES A DAY 02/15/2016 09/29/2019 Inactive clonidine HCl 0.1 mg tablet RxNorm: 012368 1 Tablet(s) PO QID 02/1404/25/2016 Inactive Premarin 1.25 mg tablet RxNorm: 389418 1-2 Tablet(s) PO QD 02/15/20 16 03/15/2016 Inactive Klor-Con 8 mEq tablet,extended release RxNorm: 307772 T FARRUKH ONE TABLET BY MOUTH TWICE A DAY 02/15/2016 03/15/2016 Inactive potassium chloride ER 20 mEq tablet,extended release(part/cr yst) RxNorm: 457315 2 Tablet(s) PO BID 02/15/2016 03/15/2016 Inactive Macrobid 100 mg capsule RxNorm: 076097 1 Capsule(s) PO BID 01/24/20 16 01/30/2016 Inactive prednisone 20 mg tablet RxNorm: 411522 Take 3tabs PO QD x 2 days, then 2 tabs PO QD x 2 days, then 1 tab PO QD x 2 days, then 1/2 tab PO QDy x 2 days 12/23/2015 04/25/2016 Inactive Klor-Con 8 mEq tablet,extended release RxNorm: 888296 T FARRUKH ONE TABLET BY MOUTH TWICE A DAY 12/20/2015 02/14/2016 Inactive alprazolam 1 mg tablet RxNorm: 096544 1 1/2 Tablet(s) PO QHS 201501/23/2016 Inactive nystatin 100,000 unit/gram topical cream RxNorm: 878097 APPLY TO AFFECTED AREA(S) TWO TIMES A DAY 11/30/2015 12/14/2015 Inactive Singulair 10 mg tablet RxNorm: 065105 TAKE ONE TABLET BY MOUTH JOSÉ Y 11/18/2015 04/25/2016 Inactive allopurinol 300 mg tablet RxNorm: 044487 1 Tablet(s) PO QD TAKE ONE TABLET BY MOUTH EVERY DAY 10/26/2015 04/22/2016 Inactive Singulair 10 mg tablet RxNorm: 430360 TAKE ONE TABLET BY MOUTH JOSÉ Y 10/26/2015 11/17/2015 Inactive duloxetine 60 mg capsule,delayed release RxNorm: 841791 1 Capsu le(s) PO QD 10/26/2015 04/22/2016 Inactive triamterene 75 mg-hydrochlorothiazide 50 mg tablet RxNorm: 3 71042 1 Tablet(s) PO QD 10/26/2015 11/14/2016 Inactive potassium chloride ER 20 mEq tablet,extended release(part/cr yst) RxNorm: 121726 2 Tablet(s) PO BID 10/26/2015 02/14/2016 Inactive Lipitor 10 mg tablet RxNorm: 760014 1 Tablet(s) PO QHS 10/26/2015 Inactive amlodipine 5 mg-benazepril 20 mg capsule RxNorm: 228622 1 Capsule(s) PO QHS replaces amlodopine 10/26/2015 04/22/2016 Inactive Bystolic 10 mg tablet RxNorm: 976814 1 Tablet(s) PO QHS 10/26/2015 Inactive amlodipine 5 mg-benazepril 20 mg capsule RxNorm: 684938 1 Capsule(s) PO QHS replaces amlodopine 10/06/2015 10/25/2015 Inactive amlodipine 5 mg tablet RxNorm: 435752 1 Tablet(s) PO QHS 09/30/2015 0 04/25/2016 Inactive metolazone 2.5 mg tablet RxNorm: 752376 TAKE ONE TABLET BY MOUTH DAILY NEEDED FOR EDEMA 09/30/2015 01/21/2019 Inactive duloxetine 60 mg capsule,delayed release RxNorm: 758342 1 Capsu le(s) PO QD 09/30/2015 10/25/2015 Inactive cephalexin 500 mg capsule RxNorm: 075665 1 Capsule(s) PO BID 201509/23/2015 Inactive mupirocin 2 % topical ointment RxNorm: 012660 TOP twice daily to affected areas of face and neck 09/14/2015 02/20/2016 Inactive baclofen 20 mg tablet RxNorm: 989088 1 Tablet(s) PO TID as needed for muscle spasm 09/01/2015 11/14/2016 Inactive clonidine HCl 0.1 mg tablet RxNorm: 245989 1 Tablet(s) PO QID 09/0102/14/2016 Inactive alprazolam 1 mg tablet RxNorm: 275446 1 1/2 Tablet(s) PO QHS 201409/09/2015 Inactive baclofen 20 mg tablet RxNorm: 156596 1 Tablet(s) PO TID as needed for muscle spasm 07/23/2015 09/01/2015 Inactive omeprazole 40 mg capsule,delayed release RxNorm: 190576 1 Capsu le(s) PO QD 07/23/2015 04/25/2016 Inactive alprazolam 1 mg tablet RxNorm: 985201 1 1/2 Tablet(s) PO QHS 201408/10/2015 Inactive Bystolic 10 mg tablet RxNorm: 127619 1 Tablet(s) PO BID 06/24/2015 Inactive allopurinol 300 mg tablet RxNorm: 669326 1 Tablet(s) PO QD TAKE ONE TABLET BY MOUTH EVERY DAY 06/23/2015 10/20/2015 Inactive alprazolam 1 mg tablet RxNorm: 030175 1 1/2 Tablet(s) PO QHS 201407/06/2015 Inactive clonidine HCl 0.1 mg tablet RxNorm: 337936 1 Tablet(s) PO QID 06/0209/01/2015 Inactive clonidine HCl 0.1 mg tablet RxNorm: 957041 1 Tablet(s) PO QID 06/0206/01/2015 Inactive Cymbalta 60 mg capsule,delayed release RxNorm: 797447 1 Capsule (s) PO QHS 06/02/2015 08/30/2015 Inactive Cymbalta 60 mg capsule,delayed release RxNorm: 847509 1 Capsule (s) PO QHS 06/02/2015 06/01/2015 Inactive clonidine HCl 0.1 mg tablet RxNorm: 603106 1 Tablet(s) PO TID 05/3106/01/2015 Inactive replaces 0.2mg dose metolazone 2.5 mg tablet RxNorm: 006203 TAKE ONE TABLET BY MOUTH DAILY NEEDED FOR EDEMA 05/21/2015 06/19/2015 Inactive Singulair 10 mg tablet RxNorm: 063480 TAKE ONE TABLET BY MOUTH JOSÉ Y 05/21/2015 10/17/2015 Inactive Cymbalta 30 mg capsule,delayed release RxNorm: 243620 1 Capsule (s) PO QHS 05/20/2015 11/14/2016 Inactive betamethasone valerate 0.1 % topical cream RxNorm: 585727 Appli cation TOP BID 05/10/2015 04/25/2016 Inactive Bactroban 2 % topical ointment RxNorm: 330413 Application TOP BID 0 05/10/2015 06/20/2015 Inactive baclofen 20 mg tablet RxNorm: 062058 1 Tablet(s) PO TID as needed 0 04/26/2015 07/23/2015 Inactive Lipitor 10 mg tablet RxNorm: 180587 1 Tablet(s) PO QHS 04/26/201508/2016 Inactive clonidine HCl 0.1 mg tablet RxNorm: 988490 1 Tablet(s) PO TID 04/2605/30/2015 Inactive replaces 0.2mg dose Klor-Con 8 mEq tablet,extended release RxNorm: 657115 1 Tablet( s) PO BID 04/26/2015 04/25/2016 Inactive metolazone 2.5 mg tablet RxNorm: 668268 1 Tablet(s) PO QD as ne eded for edema 04/26/2015 04/25/2015 Inactive triamterene 75 mg-hydrochlorothiazide 50 mg tablet RxNorm: 3 33863 1 Tablet(s) PO QD 04/26/2015 10/22/2015 Inactive Premarin 1.25 mg tablet RxNorm: 122330 1-2 Tablet(s) PO QD 04/26/2010/22/2015 Inactive Bystolic 10 mg tablet RxNorm: 426297 1 Tablet(s) PO QAM TAKE ONE TABLET BY MOUTH EVERY MORNING 04/23/2015 06/23/2015 Inactive clonidine HCl 0.1 mg tablet RxNorm: 924614 1 Tablet(s) PO TID 03/2304/25/2015 Inactive replaces 0.2mg dose nystatin 100,000 unit/gram topical cream RxNorm: 212608 Applica tion TOP BID 03/23/2015 06/20/2015 Inactive baclofen 20 mg tablet RxNorm: 125399 1 Tablet(s) PO TID as needed 0 03/23/2015 04/25/2015 Inactive Premarin 1.25 mg tablet RxNorm: 001732 1-2 Tablet(s) PO QD 03/23/2004/25/2015 Inactive Klor-Con 8 mEq tablet,extended release RxNorm: 808349 1 Tablet( s) PO BID 03/23/2015 04/25/2015 Inactive cefdinir 300 mg capsule RxNorm: 927738 2 Capsule(s) PO QD 03/16/2015 03/25/2015 Inactive baclofen 20 mg tablet RxNorm: 036142 1 Tablet(s) PO TID as needed 0 03/02/2015 03/22/2015 Inactive allopurinol 300 mg tablet RxNorm: 931308 1 Tablet(s) PO QD TAKE ONE TABLET BY MOUTH EVERY DAY 02/22/2015 05/22/2015 Inactive Klor-Con M20 mEq tablet,extended release RxNorm: 201541 2 Tablet(s) PO BID to use with lasix 02/22/2015 06/20/2015 Inactive clonidine HCl 0.1 mg tablet RxNorm: 074796 1 Tablet(s) PO TID 02/1903/22/2015 Inactive replaces 0.2mg dose Lipitor 10 mg tablet RxNorm: 427700 1 Tablet(s) PO QHS 01/20/201506/2015 Inactive Lipitor 10 mg tablet RxNorm: 576414 1 Tablet(s) PO QHS 01/20/2015 Inactive Singulair 10 mg tablet RxNorm: 976673 1 Tablet(s) PO QD TAKE ONE TABLET BY MOUTH EVERY DAY 11/20/2014 05/18/2015 Inactive Lipitor 10 mg tablet RxNorm: 599011 1 Tablet(s) PO QHS 11/20/201408/2015 Inactive allopurinol 300 mg tablet RxNorm: 351260 1 Tablet(s) PO QD TAKE ONE TABLET BY MOUTH EVERY DAY 11/20/2014 02/16/2015 Inactive Bystolic 10 mg tablet RxNorm: 589480 1 Tablet(s) PO QAM TAKE ONE TABLET BY MOUTH EVERY MORNING 11/20/2014 04/22/2015 Inactive Klor-Con 8 mEq tablet,extended release RxNorm: 096356 1 Tablet( s) PO BID 11/20/2014 02/17/2015 Inactive baclofen 20 mg tablet RxNorm: 764628 1 Tablet(s) PO TID as needed 0 11/20/2014 01/21/2019 Inactive baclofen 20 mg tablet RxNorm: 362148 1 Tablet(s) PO TID as needed 0 10/27/2014 11/19/2014 Inactive baclofen 20 mg tablet RxNorm: 812475 1 Tablet(s) PO TID as needed 0 10/26/2014 03/01/2015 Inactive allopurinol 300 mg tablet RxNorm: 554450 1 Tablet(s) PO QD TAKE ONE TABLET BY MOUTH EVERY DAY 10/26/2014 11/20/2014 Inactive Bystolic 10 mg tablet RxNorm: 595845 1 Tablet(s) PO QAM TAKE ONE TABLET BY MOUTH EVERY MORNING 10/26/2014 11/20/2014 Inactive clonidine HCl 0.1 mg tablet RxNorm: 412539 1 Tablet(s) PO TID 09/2805/27/2019 Inactive replaces 0.2mg dose clonidine HCl 0.1 mg tablet RxNorm: 990597 1 Tablet(s) PO TID 09/2802/18/2015 Inactive replaces 0.2mg dose baclofen 20 mg tablet RxNorm: 808803 1 Tablet(s) PO TID as needed 1 11/01/2013 08/30/2014 Inactive Lipitor 10 mg tablet RxNorm: 297752 1 Tablet(s) PO QHS 08/31/2014 Inactive baclofen 20 mg tablet RxNorm: 112657 1 Tablet(s) PO TID as needed 1 11/01/2013 10/26/2014 Inactive triamterene 75 mg-hydrochlorothiazide 50 mg tablet RxNorm: 3 17294 1 Tablet(s) PO QD 08/31/2014 02/26/2015 Inactive Klor-Con 8 mEq tablet,extended release RxNorm: 089791 1 Tablet( s) PO BID 08/31/2014 11/20/2014 Inactive baclofen 20 mg tablet RxNorm: 555888 1 Tablet(s) PO TID as needed 1 09/30/2013 10/25/2014 Inactive baclofen 20 mg tablet RxNorm: 074069 1 Tablet(s) PO TID as needed 1 09/30/2013 08/31/2014 Inactive omeprazole 40 mg capsule,delayed release RxNorm: 018368 1 Capsu le(s) PO QD 07/21/2014 07/23/2015 Inactive Flonase 50 mcg/actuation nasal spray,suspension RxNorm: 8963 23 1 [place] NASAL BID 07/15/2014 04/09/2017 Inactive hydrocodone 10 mg-acetaminophen 325 mg tablet RxNorm: 986027 1-2 Tablet(s) QID as needed for pain TAKE ONE TO TWO TABLETS BY MOUTH FOUR TIMES A DAY . MUST LAST 30 DAYS 06/30/2014 07/27/2014 Inactive (Response to an electronic controlled substance refill request - RxReferenceNumber: [id number]) baclofen 20 mg tablet RxNorm: 766572 1 Tablet(s) PO TID as needed 1 07/31/2014 Inactive Singulair 10 mg tablet RxNorm: 082324 1 Tablet(s) PO QD TAKE ONE TABLET BY MOUTH EVERY DAY 05/25/2014 11/20/2014 Inactive Bystolic 10 mg tablet RxNorm: 741902 TAKE ONE TABLET BY MOUTH E VERY MORNING 05/25/2014 09/21/2014 Inactive allopurinol 300 mg tablet RxNorm: 449549 1 Tablet(s) PO QD TAKE ONE TABLET BY MOUTH EVERY DAY 05/25/2014 10/21/2014 Inactive baclofen 20 mg tablet RxNorm: 943841 1 Tablet(s) PO TID as needed 0 05/25/2014 06/29/2014 Inactive allopurinol 300 mg tablet RxNorm: 118007 TAKE ONE TABLET BY LOPEZ TH EVERY DAY 05/25/2014 09/21/2014 Inactive Singulair 10 mg tablet RxNorm: 413026 1 Tablet(s) PO QD TAKE ONE TABLET BY MOUTH EVERY DAY 05/25/2014 05/24/2014 Inactive Bystolic 10 mg tablet RxNorm: 151876 1 Tablet(s) PO QAM TAKE ONE TABLET BY MOUTH EVERY MORNING 05/25/2014 10/21/2014 Inactive metolazone 2.5 mg tablet RxNorm: 678169 1 Tablet(s) PO QD as ne eded for edema 05/18/2014 04/25/2015 Inactive Lasix 40 mg tablet RxNorm: 444585 1 Tablet(s) PO QAM s hould take potassium supplementation with this medication 05/14/2014 05/17/2014 Inactive hydrocodone 10 mg-acetaminophen 325 mg tablet RxNorm: 568907 1-2 Tablet(s) QID as needed for pain TAKE ONE TO TWO TABLETS BY MOUTH FOUR TIMES A DAY . MUST LAST 30 DAYS 05/07/2014 06/05/2014 Inactive (Response to an electronic controlled substance refill request - RxReferenceNumber: [id number]) alprazolam 0.5 mg tablet RxNorm: 840999 TAKE ONE TABLET BY MOUTH TWICE A DAY , MUST LAST 30 DAYS 05/07/2014 05/22/2016 Inactive (Response to a n electronic controlled substance refill request - RxReferenceNumber: [id number]) diclofenac sodium 75 mg tablet,delayed release RxNorm: 27194 6 1 Tablet(s) PO BID for pain 04/24/2014 07/20/2014 Inactive Celebrex 200 mg capsule RxNorm: 769519 TAKE ONE CAPSULE BY MOUT H EVERY DAY 04/24/2014 07/20/2014 Inactive alprazolam 0.5 mg tablet RxNorm: 842097 TAKE ONE TABLET BY MOUTH TWICE A DAY , MUST LAST 30 DAYS 03/24/2014 04/22/2014 Inactive (Response to a n electronic controlled substance refill request - RxReferenceNumber: [id number]) diclofenac sodium 75 mg tablet,delayed release RxNorm: 93705 6 1 Tablet(s) PO BID for pain 03/24/2014 04/24/2014 Inactive clonidine HCl 0.1 mg tablet RxNorm: 991557 1 Tablet(s) PO TID 03/2409/28/2014 Inactive replaces 0.2mg dose Klor-Con 8 mEq tablet,extended release RxNorm: 197185 1 Tablet( s) PO BID 02/26/2014 08/31/2014 Inactive diclofenac sodium 75 mg tablet,delayed release RxNorm: 20638 6 1 Tablet(s) PO BID for pain 02/25/2014 03/24/2014 Inactive hydrocodone 10 mg-acetaminophen 325 mg tablet RxNorm: 417458 1-2 Tablet(s) QID as needed for pain TAKE ONE TO TWO TABLETS BY MOUTH FOUR TIMES A DAY . MUST LAST 30 DAYS 02/25/2014 03/26/2014 Inactive (Response to an electronic controlled substance refill request - RxReferenceNumber: [id number]) alprazolam 0.5 mg tablet RxNorm: 908874 Tablet(s) PO BI D as needed for anxiety TAKE ONE TABLET BY MOUTH TWICE A DAY , MUST LAST 30 DAYS 02/25/2014 Inactive (Response to an electronic controlled [place] bstance refill request - RxReferenceNumber: [id number]) [AttnRPh: Saving apply/adjudicate RxGRP:SG20 RxBIN:[id number] RxPCN: ID#:[id number]] alprazolam 0.5 mg tablet RxNorm: 708271 Tablet(s) TAKE ONE TABLET BY MOUTH TWICE A DAY , MUST LAST 30 DAYS 01/27/2014 02/24/2014 Inactive (Respo nse to an electronic controlled substance refill request - RxReferenceNumber: [id number]) [AttnRPh: Saving apply/adjudicate RxGRP:SG20 RxBIN:[id number] RxPCN: ID#:[id number]] hydrocodone 10 mg-acetaminophen 325 mg tablet RxNorm: 483175 1-2 Tablet(s) QID as needed for pain TAKE ONE TO TWO TABLETS BY MOUTH FOUR TIMES A DAY . MUST LAST 30 DAYS 01/27/2014 02/24/2014 Inactive (Response to an electronic controlled substance refill request - RxReferenceNumber: [id number]) alprazolam 0.5 mg tablet RxNorm: 447223 TAKE ONE TABLET BY MOUTH TWICE A DAY , MUST LAST 30 DAYS 01/27/2014 01/26/2014 Inactive (Response to a n electronic controlled substance refill request - RxReferenceNumber: [id number]) Premarin 1.25 mg tablet RxNorm: 711742 1-2 Tablet(s) PO QD 01/28/20 14 07/25/2014 Inactive alprazolam 0.5 mg tablet RxNorm: 515518 TAKE ONE TABLET BY MOUTH TWICE A DAY , MUST LAST 30 DAYS 01/27/2014 01/27/2014 Inactive (Response to a n electronic controlled substance refill request - RxReferenceNumber: [id number]) hydrocodone 10 mg-acetaminophen 325 mg tablet RxNorm: 909844 TAKE ONE TO TWO TABLETS BY MOUTH FOUR TIMES A DAY . MUST LAST 30 DAYS 01/27/20142013 Inactive (Response to an electronic controlled [place] bstance refill request - RxReferenceNumber: [id number]) Celebrex 200 mg capsule RxNorm: 559227 1 Capsule(s) PO QD TAKE ONE CAPSULE BY MOUTH EVERY DAY 12/29/2013 04/27/2014 Inactive hydrocodone 10 mg-acetaminophen 325 mg tablet RxNorm: 642045 1-2 Tablet(s) PO QID as needed for severe pain 12/29/2013 01/27/2014 Inactive allopurinol 300 mg tablet RxNorm: 384176 1 Tablet(s) PO QD TAKE ONE TABLET BY MOUTH EVERY DAY 12/29/2013 05/24/2014 Inactive alprazolam 0.5 mg tablet RxNorm: 020240 TAKE ONE TABLET BY MOUTH TWICE A DAY , MUST LAST 30 DAYS 12/29/2013 01/27/2014 Inactive (Response to a n electronic controlled substance refill request - RxReferenceNumber: [id number]) Celebrex 200 mg capsule RxNorm: 713395 1 Capsule(s) PO QD TAKE ONE CAPSULE BY MOUTH EVERY DAY 12/29/2013 12/29/2013 Inactive Bystolic 10 mg tablet RxNorm: 745350 1 Tablet(s) PO QAM TAKE ONE TABLET BY MOUTH EVERY MORNING 12/29/2013 05/24/2014 Inactive Bystolic 10 mg tablet RxNorm: 086659 1 Tablet(s) PO QAM TAKE ONE TABLET BY MOUTH EVERY MORNING 12/29/2013 12/29/2013 Inactive Singulair 10 mg tablet RxNorm: 244169 1 Tablet(s) PO QD TAKE ONE TABLET BY MOUTH EVERY DAY 12/29/2013 05/25/2014 Inactive hydrocodone 10 mg-acetaminophen 325 mg tablet RxNorm: 787303 TAKE ONE TO TWO TABLETS BY MOUTH FOUR TIMES A DAY . MUST LAST 30 DAYS 12/29/20132013 Inactive (Response to an electronic controlled [place] bstance refill request - RxReferenceNumber: [id number]) Trazadone 75mg Tablet RxNorm: 1 Tablet(s) PO QHS as needed 03/23/2014 Inactive Trazadone 75mg Tablet RxNorm: 1 Tablet(s) PO QHS 12/24/20132014 Inactive Soma 350 mg tablet RxNorm: 572635 Tablet(s) PO TAKE ON E TABLET BY MOUTH THREE TIMES A DAY NEEDED FOR MUSCLE SPASMS. THIS MUST LAST 30 DAYS BETWEEN REFILLS. 12/10/2013 12/22/2013 Inactive (Appended: Cont rolled substance eRx refill - RxReferenceNumber: [id number]) diclofenac sodium 75 mg tablet,delayed release RxNorm: 43030 6 1 Tablet(s) PO BID for pain 12/10/2013 02/24/2014 Inactive allopurinol 300 mg tablet RxNorm: 315111 1 Tablet(s) PO QD 11/20/19 14 12/29/2013 Inactive alprazolam 0.5 mg tablet RxNorm: 016098 2 Tablet(s) PO BID 11/13/19 14 12/29/2013 Inactive prn clonidine 0.1 mg tablet RxNorm: 988469 1 Tablet(s) PO TID 11/12/2013 02/09/2014 Inactive replaces 0.2mg dose Klor-Con M20 mEq tablet,extended release RxNorm: 534967 2 Tablet(s) PO BID to use with lasix 11/12/2013 05/10/2014 Inactive Singulair 10 mg tablet RxNorm: 557002 1 Tablet(s) PO QD 11/12/2013 Inactive hydrocodone 10 mg-acetaminophen 325 mg tablet RxNorm: 251858 1-2 Tablet(s) PO QID as needed for severe pain 11/12/2013 12/28/2013 Inactive Bystolic 10 mg tablet RxNorm: 858902 1 Tablet(s) PO QAM 11/12/2013 Inactive Soma 350 mg tablet RxNorm: 595478 Tablet(s) PO TAKE ON E TABLET BY MOUTH THREE TIMES A DAY NEEDED FOR MUSCLE SPASMS. THIS MUST LAST 30 DAYS BETWEEN REFILLS. 10/13/2013 12/10/2013 Inactive (Appended: Cont rolled substance eRx refill - RxReferenceNumber: [id number]) hydrocodone 10 mg-acetaminophen 325 mg tablet RxNorm: 347259 1-2 Tablet(s) PO QID as needed for severe pain 10/03/2013 11/11/2013 Inactive diclofenac sodium 75 mg tablet,delayed release RxNorm: 17837 8 1 Tablet(s) PO BID for pain 09/11/2013 12/10/2013 Inactive alprazolam 0.5 mg tablet RxNorm: 295644 1 Tablet(s) PO BID May refill on 04/26/13 09/01/2013 10/30/2013 Inactive prn hydrocodone 10 mg-acetaminophen 325 mg tablet RxNorm: 240170 1-2 Tablet(s) PO QID as needed for severe pain 09/01/2013 10/02/2013 Inactive triamterene 75 mg-hydrochlorothiazide 50 mg tablet RxNorm: 3 93866 1 Tablet(s) PO QD 08/04/2013 08/31/2014 Inactive cyclobenzaprine 10 mg tablet RxNorm: 636553 1 Tablet(s) PO TID prn spasm 08/04/2013 08/13/2013 Inactive clonidine 0.1 mg tablet RxNorm: 141027 1 Tablet(s) PO TID 08/04/2013 11/11/2013 Inactive replaces 0.2mg dose cyclobenzaprine 10 mg tablet RxNorm: 141098 1 Tablet(s) PO TID prn spasm 07/23/2013 08/01/2013 Inactive hydrocodone 10 mg-acetaminophen 325 mg tablet RxNorm: 592693 2 1-2 Tablet(s) PO QID as needed for severe pain 06/09/2013 08/07/2013 Inactive Singulair 10 mg tablet RxNorm: 857953 1 Tablet(s) PO QD 05/29/2013 Inactive Klor-Con 8 mEq tablet,extended release RxNorm: 530567 1 Tablet( s) PO BID 05/29/2013 02/26/2014 Inactive allopurinol 300 mg tablet RxNorm: 272796 1 Tablet(s) PO QD 05/29/20 13 11/19/2013 Inactive Bystolic 10 mg tablet RxNorm: 871140 1 Tablet(s) PO QAM take one daily in the morning. 05/29/2013 11/11/2013 Inactive scopolamine 1.5 mg 72 hr Transderm Patch RxNorm: 845332 Application TD Q72H for motion sickness 05/26/2013 07/22/2013 Inactive Soma 350 mg tablet RxNorm: 159408 1 Tablet(s) PO TID as needed for spasm 05/19/2013 10/13/2013 Inactive diclofenac sodium 75 mg tablet,delayed release RxNorm: 39210 8 1 Tablet(s) PO BID for pain 05/14/2013 07/22/2013 Inactive allopurinol 300 mg tablet RxNorm: 750443 1 Tablet(s) PO QD 04/25/2005/28/2013 Inactive alprazolam 0.5 mg tablet RxNorm: 627509 1 Tablet(s) PO BID May refill on 04/26/13 04/25/2013 06/23/2013 Inactive prn Celebrex 200 mg capsule RxNorm: 008925 1 Capsule(s) PO QD 04/16/2013 12/29/2013 Inactive alprazolam 0.5 mg tablet RxNorm: 860577 1 Tablet(s) PO BID May refill on 04/26/13 04/16/2013 04/24/2013 Inactive prn Soma 350 mg tablet RxNorm: 554885 1 Tablet(s) PO TID as needed for spasm 04/16/2013 No Stop Date Active Lasix 40 mg tablet RxNorm: 950979 1 Tablet(s) PO RAZA ramirez take potassium supplementation with this medication 04/16/2013 06/14/2013 Inactive clonidine 0.1 mg tablet RxNorm: 739963 1 Tablet(s) PO TID 04/16/2013 08/03/2013 Inactive replaces 0.2mg dose prednisone 20 mg tablet RxNorm: 269759 1 Tablet(s) PO BID 04/16/2013 04/20/2013 Inactive diclofenac sodium 75 mg tablet,delayed release RxNorm: 61816 8 1 Tablet(s) PO BID for pain 04/14/2013 05/13/2013 Inactive hydrocodone 10 mg-acetaminophen 325 mg tablet RxNorm: 352197 2 1-2 Tablet(s) PO QID as needed for severe pain 04/14/2013 No Stop Date Active Lasix 40 mg tablet RxNorm: 022110 1 Tablet(s) PO RAZA ramirez take potassium supplementation with this medication 03/31/2013 04/15/2013 Inactive Celebrex 200 mg capsule RxNorm: 823801 1 Capsule(s) PO QD 03/31/2013 04/15/2013 Inactive alprazolam 0.5 mg tablet RxNorm: 948294 1 Tablet(s) PO BID 03/28/2004/15/2013 Inactive prn hydrocodone 10 mg-acetaminophen 325 mg tablet RxNorm: 512551 2 1-2 Tablet(s) PO QID as needed for severe pain 03/10/2013 No Stop Date Active metformin ER 500 mg 24 hr tablet,extended release RxNorm: 86 1018 1 Tablet(s) PO QD 03/06/2013 07/22/2013 Inactive clindamycin 300 mg capsule RxNorm: 086416 2 Capsule(s) PO TID 03/0503/14/2013 Inactive Zaroxolyn 2.5 mg tablet RxNorm: 332455 1 Tablet(s) PO QAM 03/05/2013 05/19/2015 Inactive amlodipine 10 mg tablet RxNorm: 445367 1 Tablet(s) PO QD 03/03/2013 0 05/25/2013 Inactive Norvasc 10 mg tablet RxNorm: 331690 1 Tablet(s) PO QD 02/28/201307/11 Inactive Celebrex 200 mg capsule RxNorm: 308098 1 Capsule(s) PO QD 02/28/2013 03/30/2013 Inactive diclofenac sodium 75 mg tablet,delayed release RxNorm: 37715 8 1 Tablet(s) PO BID for pain 02/14/2013 03/15/2013 Inactive Soma 350 mg tablet RxNorm: 295414 1 Tablet(s) PO TID as needed for spasm 02/14/2013 No Stop Date Active hydrocodone 10 mg-acetaminophen 325 mg tablet RxNorm: 452341 2 1-2 Tablet(s) PO QID as needed for severe pain 02/14/2013 No Stop Date Active Norvasc 10 mg tablet RxNorm: 168292 1 Tablet(s) PO QD 02/10/201302/09 Inactive Celebrex 200 mg capsule RxNorm: 147407 1 Capsule(s) PO QD 01/27/2013 01/26/2013 Inactive Premarin 1.25 mg tablet RxNorm: 088562 1-2 Tablet(s) PO QD 01/28/20 13 06/25/2013 Inactive alprazolam 0.5 mg tablet RxNorm: 820505 1 Tablet(s) PO BID 01/28/20 13 02/25/2013 Inactive prn amlodipine 5 mg tablet RxNorm: 053744 1 Tablet(s) PO QD 01/27/2013 Inactive Celebrex 200 mg capsule RxNorm: 266391 1 Capsule(s) PO QD 01/27/2013 02/27/2013 Inactive gabapentin 600 mg tablet RxNorm: 727509 1 Tablet(s) PO QHS 01/16/20 13 07/22/2013 Inactive Soma 350 mg tablet RxNorm: 939328 1 Tablet(s) PO TID as needed for spasm 01/15/2013 No Stop Date Active hydrocodone 10 mg-acetaminophen 325 mg tablet RxNorm: 664234 2 1-2 Tablet(s) PO QID as needed for severe pain 01/15/2013 No Stop Date Active Soma 350 mg tablet RxNorm: 896343 1 Tablet(s) PO TID as needed for spasm 01/13/2013 No Stop Date Active alprazolam 0.5 mg tablet RxNorm: 677629 1 Tablet(s) PO BID 12/31/19 13 01/26/2013 Inactive prn diclofenac sodium 75 mg tablet,delayed release RxNorm: 80992 8 1 Tablet(s) PO BID for pain 12/09/2012 01/07/2013 Inactive gabapentin 600 mg tablet RxNorm: 139513 1 Tablet(s) PO QHS 12/10/19 13 01/07/2013 Inactive hydrocodone 10 mg-acetaminophen 325 mg tablet RxNorm: 614358 2 1-2 Tablet(s) PO QID as needed for severe pain 12/02/2012 No Stop Date Active Levaquin 750 mg tablet RxNorm: 896353 1 Tablet(s) PO QD 11/21/2012 Inactive Singulair 10 mg tablet RxNorm: 920860 1 Tablet(s) PO QD 11/11/2012 Inactive clonidine 0.2 mg tablet RxNorm: 529610 1 Tablet(s) PO TID 11/11/2012 04/15/2013 Inactive alprazolam 0.5 mg tablet RxNorm: 926552 1 Tablet(s) PO BID 11/12/19 13 12/10/2012 Inactive prn Klor-Con 8 mEq tablet,extended release RxNorm: 799771 1 Tablet( s) PO BID 11/11/2012 03/04/2013 Inactive hydrocodone 10 mg-acetaminophen 325 mg tablet RxNorm: 897299 2 1-2 Tablet(s) PO QID as needed for severe pain 11/06/2012 No Stop Date Active alprazolam 0.5 mg tablet RxNorm: 134448 1 Tablet(s) PO BID 10/15/19 13 11/10/2012 Inactive prn hydrocodone-acetaminophen 10 mg-325 mg tablet RxNorm: 694632 2 1-2 Tablet(s) PO QID as needed for severe pain 10/10/2012 10/09/2012 Inactive allopurinol 300 mg tablet RxNorm: 177060 1 Tablet(s) PO QD 09/20/19 13 12/18/2012 Inactive alprazolam 0.5 mg tablet RxNorm: 731044 1 Tablet(s) PO BID 09/17/19 13 10/14/2012 Inactive prn hydrocodone-acetaminophen 10 mg-325 mg tablet RxNorm: 041527 2 1-2 Tablet(s) PO QID as needed for severe pain 08/22/2012 08/21/2012 Inactive Norvasc 10 mg tablet RxNorm: 003974 1 Tablet(s) PO QD 08/12/201201/10 Inactive Premarin 1.25 mg tablet RxNorm: 455409 1-2 Tablet(s) PO QD 07/30/20 12 12/26/2012 Inactive alprazolam 0.5 mg tablet RxNorm: 596037 1 Tablet(s) PO BID 07/29/20 12 08/27/2012 Inactive prn Klor-Con 8 mEq tablet,extended release RxNorm: 343579 1 Tablet( s) PO BID 07/29/2012 11/10/2012 Inactive hydrocodone-acetaminophen 10 mg-325 mg tablet RxNorm: 521165 2 1-2 Tablet(s) PO QID as needed for severe pain 07/29/2012 No Stop Date Active Premarin 1.25 mg tablet RxNorm: 202732 1-2 Tablet(s) PO QD 07/29/20 12 07/29/2012 Inactive clonidine 0.2 mg tablet RxNorm: 012155 1 Tablet(s) PO TID 07/29/2012 10/28/2012 Inactive ketorolac 10 mg tablet RxNorm: 265940 1 Tablet(s) PO QID prn he adache 07/18/2012 No Stop Date Active hydrocodone-acetaminophen 10 mg-325 mg tablet RxNorm: 918218 2 1-2 Tablet(s) PO QID as needed for severe pain 07/03/2012 No Stop Date Active amlodipine 5 mg tablet RxNorm: 257380 1 Tablet(s) PO QD 07/02/2012 Inactive allopurinol 300 mg tablet RxNorm: 308186 1 Tablet(s) PO QD 07/02/20 12 09/19/2012 Inactive Celebrex 200 mg capsule RxNorm: 087074 1 Capsule(s) PO QD for j oint pain 06/26/2012 10/23/2012 Inactive diclofenac sodium 75 mg tablet,delayed release RxNorm: 36190 8 1 Tablet(s) PO BID for pain 06/19/2012 09/16/2012 Inactive hydrocodone-acetaminophen 10 mg-325 mg tablet RxNorm: 156707 2 1-2 Tablet(s) PO QID as needed for severe pain 06/10/2012 No Stop Date Active alprazolam 0.5 mg tablet RxNorm: 104594 1 Tablet(s) PO BID 06/03/20 12 07/02/2012 Inactive prn ketorolac 10 mg tablet RxNorm: 793114 1 Tablet(s) PO Q8H 05/27/2012 0 01/21/2019 Inactive as needed for headache hydrocodone-acetaminophen 10 mg-325 mg tablet RxNorm: 692438 2 1-2 Tablet(s) PO QID as needed for severe pain 05/15/2012 No Stop Date Active allopurinol 300 mg tablet RxNorm: 869455 1 Tablet(s) PO QD 05/14/20 12 06/12/2012 Inactive allopurinol 300 mg tablet RxNorm: 824823 1 Tablet(s) PO QD 05/14/20 12 05/13/2012 Inactive amlodipine 5 mg tablet RxNorm: 352315 1 Tablet(s) PO QD 05/01/2012 Inactive amlodipine 5 mg Tab RxNorm: 204446 1 Tablet(s) PO QD 05/01/201204/30 Inactive Celebrex 200 mg capsule RxNorm: 779924 1 Capsule(s) PO QD for j oint pain 05/01/2012 06/25/2012 Inactive Singulair 10 mg tablet RxNorm: 728873 1 Tablet(s) PO QD 05/01/2012 Inactive alprazolam 0.5 mg tablet RxNorm: 506337 1 Tablet(s) PO BID 05/01/20 12 05/30/2012 Inactive prn Celebrex 200 mg Cap RxNorm: 753948 1 Capsule(s) PO QD for joint radu n 05/01/2012 04/30/2012 Inactive hydrocodone-acetaminophen 10 mg-325 mg tablet RxNorm: 977751 2 1-2 Tablet(s) PO QID as needed for severe pain 04/19/2012 No Stop Date Active Lasix 40 mg tablet RxNorm: 219340 1 Tablet(s) PO RAZA ramirez take potassium supplementation with this medication 04/05/2012 06/03/2012 Inactive alprazolam 0.5 mg Tab RxNorm: 784033 1 Tablet(s) PO BID 04/05/2012 Inactive prn hydrocodone-acetaminophen 10 mg-325 mg Tab RxNorm: 2253543 1-2 Tablet(s) PO QID as needed for severe pain 03/25/2012 03/24/2012 Inactive clonidine 0.2 mg Tab RxNorm: 145377 1 Tablet(s) PO TID 03/08/2012 Inactive alprazolam 0.5 mg Tab RxNorm: 189021 1 Tablet(s) PO BID 03/08/2012 Inactive prn Soma 350 mg tablet RxNorm: 740519 1 Tablet(s) PO TID for spasm 02/0903/18/2012 Inactive clonidine 0.2 mg tablet RxNorm: 430315 1 Tablet(s) PO TID 03/08/2012 07/28/2012 Inactive Celebrex 200 mg Cap RxNorm: 320642 1 Capsule(s) PO QD for joint radu n 03/01/2012 04/29/2012 Inactive amlodipine 5 mg Tab RxNorm: 780676 1 Tablet(s) PO QD 02/26/201202/24 Inactive amlodipine 5 mg Tab RxNorm: 496689 1 Tablet(s) PO QD 02/26/201204/25 Inactive Bactroban 2 % Ointment RxNorm: 212372 Application TOP QID to sores 02/23/2012 No Stop Date Active amlodipine 2.5 mg tablet RxNorm: 814831 1 Tablet(s) PO QHS 02/20/2002/25/2012 Inactive doxycycline hyclate 100 mg Cap RxNorm: 6491822 1 Capsule(s) PO BID 02/20/2012 02/29/2012 Inactive hydrocodone-acetaminophen 10 mg-325 mg Tab RxNorm: 8956413 1-2 T ablet(s) PO QID 02/08/2012 No Stop Date Active alprazolam 0.5 mg Tab RxNorm: 009314 1 Tablet(s) PO BID 02/08/2012 Inactive prn Singulair 10 mg Tab RxNorm: 190030 1 Tablet(s) PO QD 02/08/201204/30 Inactive Soma 350 mg Tab RxNorm: 390742 1 Tablet(s) PO TID for spasm 012 03/07/2012 Inactive Soma 350 mg Tab RxNorm: 781226 1 Tablet(s) PO TID for spasm 012 02/05/2012 Inactive diclofenac sodium 75 mg tablet,delayed release RxNorm: 09624 8 1 Tablet(s) PO BID for pain 02/01/2012 03/18/2012 Inactive Celebrex 200 mg Cap RxNorm: 698487 1 Capsule(s) PO QD for joint radu n 01/30/2012 02/28/2012 Inactive Lasix 40 mg Tab RxNorm: 096237 1 Tablet(s) PO QAM 01/24/2012 03/18/20 12 Inactive potassium chloride ER 20 mEq tablet,extended release(part/cr yst) RxNorm: 161943 2 Tablet(s) PO BID 01/24/2012 02/22/2012 Inactive alprazolam 0.5 mg Tab RxNorm: 898146 1 Tablet(s) PO BID 01/11/2012 Inactive prn hydrocodone-acetaminophen 10 mg-325 mg Tab RxNorm: 6439442 1-2 T ablet(s) PO QID 01/11/2012 No Stop Date Active Ambien 10 mg Tab RxNorm: 989937 1 Tablet(s) PO QHS 01/11/2012 012 Inactive Klor-Con 8 mEq Tab RxNorm: 365909 1 Tablet(s) PO BID 01/11/201201/22 Inactive diclofenac sodium 75 mg Tab, Delayed Release RxNorm: 851309 1 Tablet(s) PO BID for pain 01/10/2012 01/31/2012 Inactive Ambien 10 mg Tab RxNorm: 662805 1 Tablet(s) PO QHS 12/11/2011 012 Inactive alprazolam 0.5 mg Tab RxNorm: 449420 1 Tablet(s) PO BID 12/11/2011 Inactive prn hydrocodone 10 mg-acetaminophen 325 mg tablet RxNorm: 744658 1-2 Tablet(s) PO TID 11/28/2011 No Stop Date Active as needed for pa in - Previous quantity #240, will start dosing for #180 in April 2011 per Doctor Td. Ambien 10 mg Tab RxNorm: 189033 1 Tablet(s) PO QHS 11/09/2011 012 Inactive alprazolam 0.5 mg Tab RxNorm: 235691 1 Tablet(s) PO BID 11/09/2011 Inactive prn hydrocodone-acetaminophen 10 mg-325 mg Tab RxNorm: 3498578 1-2 T ablet(s) PO TID 11/06/2011 No Stop Date Active as needed for pain - Previous quantity #240, will start dosing for #180 in April 2011 per Doctor Td. Singulair 10 mg Tab RxNorm: 147619 1 Tablet(s) PO QD 10/13/201110/12 Inactive Singulair 10 mg Tab RxNorm: 187234 1 Tablet(s) PO QD 10/13/201102/06 Inactive hydrocodone-acetaminophen 10 mg-325 mg Tab RxNorm: 4297421 1-2 T ablet(s) PO TID 10/10/2011 10/09/2011 Inactive as needed for pain - Previous quantity #240, will start dosing for #180 in April 2011 per Doctor Td. hydrocodone-acetaminophen 10 mg-325 mg Tab RxNorm: 5636264 1-2 T ablet(s) PO TID 10/09/2011 No Stop Date Active as needed for pain - Previous quantity #240, will start dosing for #180 in April 2011 per Doctor Td. Klor-Con 8 mEq Tab RxNorm: 972069 1 Tablet(s) PO BID 10/02/201101/09 Inactive triamterene 75 mg-hydrochlorothiazide 50 mg tablet RxNorm: 3 99883 1 Tablet(s) PO QD 09/14/2011 03/06/2013 Inactive Ambien 10 mg Tab RxNorm: 650942 1 Tablet(s) PO QHS 09/14/2011 012 Inactive hydrocodone-acetaminophen 10 mg-325 mg Tab RxNorm: 9372827 1-2 T ablet(s) PO TID 09/14/2011 No Stop Date Active as needed for pain - Previous quantity #240, will start dosing for #180 in April 2011 per Doctor Td. alprazolam 0.5 mg Tab RxNorm: 090555 1 Tablet(s) PO BID 09/14/2011 Inactive prn Zithromax 500 mg Tab RxNorm: 8675004 1 Tablet(s) PO QD 09/13/201106/2012 Inactive prednisone 20 mg Tab RxNorm: 658132 1 Tablet(s) PO BID 08/31/2011 Inactive Ambien 10 mg Tab RxNorm: 254651 1 Tablet(s) PO QHS 08/17/2011 011 Inactive hydrocodone-acetaminophen 10 mg-325 mg Tab RxNorm: 4731670 1-2 T ablet(s) PO TID 08/17/2011 No Stop Date Active as needed for pain - Previous quantity #240, will start dosing for #180 in April 2011 per Doctor Td. clonidine 0.2 mg Tab RxNorm: 104144 1 Tablet(s) PO TID 08/17/201112/2011 Inactive Ambien 10 mg Tab RxNorm: 820264 1 Tablet(s) PO QHS 08/17/2011 019 Inactive alprazolam 0.5 mg Tab RxNorm: 794886 1 Tablet(s) PO BID 08/17/2011 Inactive prn hydrocodone-acetaminophen 10 mg-325 mg Tab RxNorm: 4487543 1-2 T ablet(s) PO TID 08/17/2011 08/16/2011 Inactive as needed for pain - Previous quantity #240, will start dosing for #180 in April 2011 per Doctor Td. Singulair 10 mg Tab RxNorm: 821228 1 Tablet(s) PO QD 08/17/201108/16 Inactive Klor-Con 8 mEq Tab RxNorm: 422619 1 Tablet(s) PO QD 08/17/20112011 Inactive alprazolam 0.5 mg Tab RxNorm: 153896 1 Tablet(s) PO BID 07/20/2011 Inactive prn Ambien 10 mg Tab RxNorm: 643408 1 Tablet(s) PO QHS 07/20/2011 012 Inactive Singulair 10 mg Tab RxNorm: 998332 1 Tablet(s) PO QD 07/20/201107/19 Inactive Premarin 1.25 mg tablet RxNorm: 967617 2 Tablet(s) PO QD 07/20/2011 0 01/21/2019 Inactive Premarin 1.25 mg tablet RxNorm: 474884 1-2 Tablet(s) PO QD 07/20/20 11 12/16/2011 Inactive Premarin 1.25 mg Tab RxNorm: 694035 1-2 Tablet(s) PO QD 07/06/2011 Inactive alprazolam 0.5 mg Tab RxNorm: 793550 1 Tablet(s) PO BID 06/22/2011 Inactive prn alprazolam 0.5 mg Tab RxNorm: 621804 1 Tablet(s) PO BID 06/22/2011 Inactive prn Premarin 1.25 mg Tab RxNorm: 801302 1 Tablet(s) PO QD m ay do 90 day fill if desired 06/22/2011 07/05/2011 Inactive hydrocodone-acetaminophen 10 mg-325 mg Tab RxNorm: 1669485 1-2 T ablet(s) PO TID 06/22/2011 No Stop Date Active as needed for pain - Previous quantity #240, will start dosing for #180 in April 2011 per Doctor Td. clonidine 0.2 mg Tab RxNorm: 228716 1 Tablet(s) PO TID 05/25/201103/2011 Inactive triamterene-hydrochlorothiazide 75 mg-50 mg Tab RxNorm: 3108 18 1 Tablet(s) PO QD 05/25/2011 09/13/2011 Inactive alprazolam 0.5 mg Tab RxNorm: 763947 1 Tablet(s) PO BID 05/25/2011 Inactive prn hydrocodone-acetaminophen 10 mg-325 mg Tab RxNorm: 6344316 1-2 T ablet(s) PO TID 05/25/2011 No Stop Date Active as needed for pain - Previous quantity #240, will start dosing for #180 in April 2011 per Doctor Td. Robaxin-750 750 mg Tab RxNorm: 430900 2 Tablet(s) PO QHS 05/22/2011 1 Inactive prn spasm hydrocodone-acetaminophen 10 mg-325 mg Tab RxNorm: 1375719 1-2 T ablet(s) PO TID 04/26/2011 No Stop Date Active as needed for pain - Previous quantity #240, will start dosing for #180 in April 2011 per Doctor Td. alprazolam 0.5 mg Tab RxNorm: 680339 1 Tablet(s) PO BID 04/25/2011 Inactive prn Klor-Con 8 mEq Tab RxNorm: 841257 1 Tablet(s) PO QD 03/30/20112010 Inactive Klor-Con 8 mEq Tab RxNorm: 006834 1 Tablet(s) PO QD 03/29/20112010 Inactive hydrocodone-acetaminophen 10 mg-325 mg Tab RxNorm: 6151101 1-2 T ablet(s) PO TID 03/20/2011 04/25/2011 Inactive as needed for pain - Previous quantity #240, will start dosing for #180 in April 2011 per Doctor Td. alprazolam 0.5 mg Tab RxNorm: 779099 1 Tablet(s) PO BID prn 011 03/30/2011 Inactive Ambien 10 mg Tab RxNorm: 942494 1 Tablet(s) PO QHS 03/01/2011 011 Inactive cyclobenzaprine 10 mg Tab RxNorm: 439375 1 Tablet(s) PO TID 011 03/18/2012 Inactive cyclobenzaprine 10 mg Tab RxNorm: 731289 1 Tablet(s) PO TID 011 01/08/2011 Inactive cyclobenzaprine 10 mg Tab RxNorm: 493304 1 Tablet(s) PO TID 011 12/20/2010 Inactive terbinafine 250 mg Tab RxNorm: 157050 1 Tablet(s) PO QD 12/12/2010 Inactive triamterene-hydrochlorothiazide 75 mg-50 mg Tab RxNorm: 3108 18 1 Tablet(s) PO QD 12/07/2010 06/04/2011 Inactive Klor-Con 8 8 mEq Tab RxNorm: 835519 1 Tablet(s) PO QD 12/07/201001/08 Inactive Premarin 1.25 mg Tab RxNorm: 705227 2 Tablet(s) PO QD 12/07/201001/08 Inactive clonidine 0.2 mg Tab RxNorm: 302334 1 Tablet(s) PO TID 12/07/2010 Inactive hydrocodone-acetaminophen 7.5 mg-650 mg Tab RxNorm: 839092 1 Ta blet(s) PO Q4H 12/05/2010 01/21/2019 Inactive hydrocodone-acetaminophen 7.5 mg-650 mg Tab RxNorm: 653044 1 Ta blet(s) PO Q4H 10/26/2010 11/14/2010 Inactive hydrocodone-acetaminophen 7.5 mg-650 mg Tab RxNorm: 545216 1 Ta blet(s) PO Q4H 10/13/2010 10/25/2010 Inactive hydrocodone-acetaminophen 7.5 mg-650 mg Tab RxNorm: 277566 1 Ta blet(s) PO Q4H 09/15/2010 09/12/2010 Inactive alprazolam 0.5 mg Tab RxNorm: 769209 1 Tablet(s) PO BID prn 011 09/12/2010 Inactive terbinafine 250 mg Tab RxNorm: 158307 1 Tablet(s) PO QD 09/05/2010 Inactive hydrocodone-acetaminophen 7.5 mg-650 mg Tab RxNorm: 756554 1 Ta blet(s) PO Q4H 08/29/2010 09/17/2010 Inactive alprazolam 0.5 mg Tab RxNorm: 348083 1 Tablet(s) PO BID prn 010 09/27/2010 Inactive alprazolam 0.5 mg Tab RxNorm: 760393 1 Tablet(s) PO BID prn 010 09/06/2010 Inactive Klor-Con 8 mEq Tab RxNorm: 949874 1 Tablet(s) PO QD 08/08/20102010 Inactive hydrocodone-acetaminophen 7.5 mg-650 mg Tab RxNorm: 434411 1 Ta blet(s) PO Q4H 08/08/2010 08/27/2010 Inactive Ambien 10 mg Tab RxNorm: 582206 1 Tablet(s) PO QHS 08/08/2010 Inactive clonidine 0.2 mg Tab RxNorm: 854438 1 Tablet(s) PO TID 08/08/2010 Inactive Premarin 1.25 mg Tab RxNorm: 017962 2 Tablet(s) PO QD 08/08/201009/12 Inactive Ambien 10 mg Tab RxNorm: 034621 1 Tablet(s) PO QHS 07/18/2010 Inactive alprazolam 0.5 mg Tab RxNorm: 632742 1 Tablet(s) PO BID prn 08/07/2010 Inactive hydrocodone-acetaminophen 7.5 mg-650 mg Tab RxNorm: 103568 1 Ta blet(s) PO Q4H 07/12/2010 07/31/2010 Inactive clonidine 0.2 mg Tab RxNorm: 246026 1 Tablet(s) PO TID 06/20/2010 Inactive terbinafine 250 mg Tab RxNorm: 638504 1 Tablet(s) PO QD 05/24/2010 Inactive Clonidine 0.2 mg Tab RxNorm: 506195 1 Tablet(s) PO TID 05/24/201006/2010 Inactive Ambien 10 mg Tab RxNorm: 024893 1 Tablet(s) PO QHS 05/24/2010 Inactive alprazolam 0.5 mg Tab RxNorm: 916728 1 Tablet(s) PO BID 05/24/2010 Inactive Klor-Con 8 mEq Tab RxNorm: 969014 1 Tablet(s) PO QD 05/24/20102009 Inactive alprazolam 0.5 mg Tab RxNorm: 866068 2 Tablet(s) PO QD prn 05/24/2007/17/2010 Inactive triamterene-hydrochlorothiazide 75 mg-50 mg Tab RxNorm: 3108 18 1 Tablet(s) PO QD 05/24/2010 11/19/2010 Inactive Ambien 10 mg Tab RxNorm: 238328 1 Tablet(s) PO QHS 05/23/2010 Inactive Alprazolam 0.5 mg Tab RxNorm: 437190 2 Tablet(s) PO QD prn 05/23/20 10 05/23/2010 Inactive Premarin 1.25 mg Tab RxNorm: 449489 2 Tablet(s) PO QD 05/19/201007/12 Inactive Hydrocodone-Acetaminophen 7.5 mg-650 mg Tab RxNorm: 859174 1 Ta blet(s) PO Q4H 05/19/2010 03/20/2011 Inactive Prednisone 20 mg Tab RxNorm: 517283 1 Tablet(s) PO BID 05/17/2010 Inactive Prednisone 20 mg Tab RxNorm: 328344 1 Tablet(s) PO BID 05/06/201001/2010 Inactive Premarin 1.25 mg Tab RxNorm: 730432 Tablet(s) PO 2 M-W-F, and 1 Jk-Bl-Ual-Sun 05/05/2010 08/02/2010 Inactive Premarin 1.25 mg Tab RxNorm: 942860 Tablet(s) PO 2 M-W-F, and 1 Ux-Od-Ryz-Sun 05/04/2010 05/04/2010 Inactive Premarin 1.25 mg Tab RxNorm: 402669 Tablet(s) PO 2 M-W-F, and 1 Pl-Oi-Jzr-Sun 05/04/2010 05/03/2010 Inactive Prednisone 20 mg Tab RxNorm: 137179 1 Tablet(s) PO BID 04/27/2010 Inactive Alprazolam 0.5 mg Tab RxNorm: 381622 2 Tablet(s) PO QD prn 04/26/20 10 05/22/2010 Inactive Clindamycin 300 mg Cap RxNorm: 861647 2 Capsule(s) PO TID 04/05/2010 04/18/2010 Inactive Terbinafine 250 mg Tab RxNorm: 997083 1 Tablet(s) PO QD 04/04/2010 Inactive Hydrocodone-Acetaminophen 7.5 mg-650 mg Tab RxNorm: 765140 1 Ta blet(s) PO Q4H 03/30/2010 04/18/2010 Inactive Avelox 400 mg Tab RxNorm: 598121 1 Tablet(s) PO QD 03/09/2010 Inactive Hydrocodone-Acetaminophen 7.5 mg-650 mg Tab RxNorm: 081938 1 Ta blet(s) PO Q4H 03/08/2010 03/27/2010 Inactive Alprazolam 0.5 mg Tab RxNorm: 418102 2 Tablet(s) PO QD prn 03/08/20 10 04/25/2010 Inactive Klor-Con 8 mEq Tab RxNorm: 039762 1 Tablet(s) PO QD when takes lasi x 03/07/2010 09/29/2019 Inactive Premarin 1.25 mg Tab RxNorm: 639869 1 Tablet(s) PO QD 03/03/201003/11 Inactive Alprazolam 0.5 mg Tab RxNorm: 275306 1 Tablet(s) PO BID PRN 010 No Stop Date Active triamterene-hydrochlorothiazide 75 mg-50 mg Tab RxNorm: 3108 18 1 Tablet(s) PO QD 02/09/2010 02/03/2011 Inactive Hydrocodone-Acetaminophen 10 mg-750 mg Tab RxNorm: 132365 1 Tablet(s) PO Q4H PRN 02/09/2010 03/20/2011 Inactive Clonidine 0.2 mg Tab RxNorm: 833256 1 Tablet(s) PO TID 01/13/201009/2009 Inactive Alprazolam 0.5 mg Tab RxNorm: 046213 1 Tablet(s) PO BID PRN 010 01/12/2010 Inactive Hydrocodone-Acetaminophen 10 mg-750 mg Tab RxNorm: 848960 1 Tablet(s) PO Q4H PRN 01/13/2010 01/12/2010 Inactive ANGELIQ 1 mg-0.5 mg Tab RxNorm: 5317271 1 Tablet(s) PO QD 12/27/2009 01/23/2010 Inactive Lasix 40 mg Tab RxNorm: 380773 1 Tablet(s) PO QAM 12/14/2009 06/11/20 10 Inactive Vitamin B12 1000mcg Tablet RxNorm: 1 Tablet(s) PO QD No Start Date Active cyclobenzaprine 10 mg tablet RxNorm: 309150 1 Tablet(s) PO TID as needed DO NOT USE WITH BACLOFEN No Start Date Active Vitamin D 5,000 unit Tab RxNorm: 1 Tablet(s) PO QD No Start Date Active vitamin E (dl, acetate) 400 unit Cap RxNorm: 039724 1 Capsule(s ) PO QD No Start Date Active Benadryl 25 mg Cap RxNorm: 8596901 Capsule(s) PO PRN No Start Date Inactive amitriptyline 100 mg tablet RxNorm: 032210 1 Tablet(s) PO QHS No St art Date 11/27/2016 Inactive Zithromax Z-Dustin 250 mg tablet RxNorm: 065886 Tablet(s) PO as di rected No Start Date 07/22/2013 Inactive Klor-Con 8 mEq tablet,extended release RxNorm: 929641 1 Tablet( s) PO BID No Start Date 07/28/2012 Inactive scopolamine 1.5 mg 72 hr Transderm Patch RxNorm: 880373 Application TD Q72H for motion sickness No Start Date 05/25/2013 Inactive Klonopin 1 mg tablet RxNorm: 904158 1-2 Tablet(s) PO QHS as nee ded for sleep No Start Date 06/20/2015 Inactive Klor-Con M20 mEq tablet,extended release RxNorm: 761132 2 Tablet(s) PO BID to use with lasix No Start Date 11/11/2013 Inactive Bystolic 5 mg tablet RxNorm: 075798 1 Tablet(s) PO QD No Start Date 1 Inactive Bystolic 10 mg tablet RxNorm: 727037 1 Tablet(s) PO BID No Start Da te 07/06/2015 Inactive Premarin 1.25 mg Tab RxNorm: 118900 Tablet(s) PO 2 -W-, and 1 Ta-Xn-Dns-Sun No Start Date 05/03/2010 Inactive baclofen 20 mg tablet RxNorm: 219632 1 Tablet(s) PO TID as needed for muscle spasm No Start Date 07/22/2015 Inactive hydrocodone-acetaminophen 7.5 mg-650 mg Tab RxNorm: 673489 1 Tablet(s) PO Q4H as needed for pain No Start Date 03/20/2011 Inactive albuterol sulfate 1.25 mg/3 mL Neb Solution RxNorm: 737390 1 Unit Dose INH Q4H 2boxes No Start Date 09/06/2015 Inactive Butrans 20 mcg/hour Transderm Patch RxNorm: 329810 1 TD WEEKLY apply to skin weekly after removing previous. No Start Date 07/22/2013 Inactive Medrol (Dustin) 4 mg tablets in a dose pack RxNorm: 643703 Tablet(s) PO As Directed No Start Date 07/30/2016 Inactive hydrocodone-acetaminophen 10 mg-325 mg Tab RxNorm: 7483487 1-2 Tablet(s) PO TID as needed for pain No Start Date 03/19/2011 Inactive Klonopin 1 mg tablet RxNorm: 459391 1 Tablet(s) PO QHS No Start Date 02/28/2016 Inactive honey topical RxNorm: topical No Start Date 06/16/2018 Inactive Clonidine 0.2 mg Tab RxNorm: 027929 1 Tablet(s) PO TID No Start Date 01/12/2010 Inactive ketorolac 10 mg tablet RxNorm: 032582 1 Tablet(s) PO Q8H No Start D ate 03/18/2012 Inactive as needed for headache Singulair 10 mg Tab RxNorm: 680517 1 Tablet(s) PO QD No Start Date Inactive Premarin 1.25 mg Tab RxNorm: 453507 1 Tablet(s) PO QD No Start Date 1 Inactive Flonase 50 mcg/Actuation Nasal Jupiter RxNorm: 3111936 1 Jupiter CECELIA AL BID No Start Date 03/18/2012 Inactive Terbinafine 250 mg Tab RxNorm: 501036 1 Tablet(s) PO QD No Start Da te 04/03/2010 Inactive Fexofenadine 180 mg Tab RxNorm: 2392649 1 Tablet(s) PO QD No Start Date 09/06/2015 Inactive baclofen 20 mg tablet RxNorm: 264215 1 Tablet(s) PO TID as needed N o Start Date 05/25/2014 Inactive Diovan 160 mg Tab RxNorm: 359858 1 Tablet(s) PO QD No Start Date 09/12 Inactive mupirocin 2 % topical ointment RxNorm: 171289 1 Application TOP QID No Start Date 04/25/2016 Inactive ZOFRAN ODT 4 mg Tab, Rapid Dissolve RxNorm: 728229 1 Tablet(s) PO Q4H No Start Date 03/18/2012 Inactive as needed for nausea and vomiting Alprazolam 0.5 mg Tab RxNorm: 015750 1 Tablet(s) PO BID PRN No Star t Date 01/12/2010 Inactive cyclobenzaprine 10 mg tablet RxNorm: 885824 1 Tablet(s) PO TID as needed for muscle spasm No Start Date 10/08/2017 Inactive Albuterol 0.083% Aerosol Solution RxNorm: 1 Appl ication INH Q4H Use one ampule every 4 hrs with nebulizer as needed for shortness of breath. No Start Date 10/09/2010 Inactive lorazepam 1 mg tablet RxNorm: 125830 1 1/2 Tablet(s) PO QHS No Star t Date 02/02/2016 Inactive Melatonin 3 mg Tab RxNorm: 794417 Tablet(s) PO PRN No Start Date 07/11 Inactive Medrol (Dustin) 4 mg Tabs in a Dose Pack RxNorm: 128645 Tablet(s) PO N o Start Date 11/28/2010 Inactive lorazepam 1 mg tablet RxNorm: 566586 1 Tablet(s) PO QHS as need ed for sleep No Start Date 01/30/2016 Inactive hydrocodone-acetaminophen 10 mg-325 mg Tab RxNorm: 3509529 1-2 Tablet(s) PO QID as needed for severe pain No Start Date 03/24/2012 Inactive celecoxib 200 mg capsule RxNorm: 164375 1 Capsule(s) PO BID No Star t Date 06/26/2019 Inactive amlodipine 5 mg-benazepril 20 mg capsule RxNorm: 732313 1 Capsu le(s) PO QD No Start Date 04/10/2017 Inactive Bystolic 20 mg tablet RxNorm: 931846 1/2 Tablet(s) PO QAM No Start Date 01/23/2016 Inactive Bystolic 20 mg tablet RxNorm: 088994 1 Tablet(s) PO QAM No Start Da te 04/25/2016 Inactive Ambien 10 mg Tab RxNorm: 257876 1 Tablet(s) PO QHS No Start Date 05/11 Inactive Klor-Con 8 mEq Tab RxNorm: 079128 1 Tablet(s) PO QD when takes lasix No Start Date 03/06/2010 Inactive aspirin 81 mg tablet RxNorm: 746173 1 Tablet(s) PO QD No Start Date 0 01/29/2018 Inactive hydrocodone-acetaminophen 10 mg-325 mg Tab RxNorm: 1030890 1-2 T ablet(s) PO QID No Start Date 01/10/2012 Inactive Bystolic 10 mg tablet RxNorm: 698260 1 Tablet(s) PO QAM take one daily in the morning. No Start Date 05/28/2013 Inactive nystatin 100,000 unit/mL Oral Susp RxNorm: 469401 5 Milliliter( s) PO QID No Start Date 03/18/2012 Inactive swish and spit scopolamine 1.5 mg 72 hr Transderm Patch RxNorm: 068648 1 Unit Dose TD Q72H for motion sickness No Start Date 12/23/2013 Inactive Hydrocodone-Acetaminophen 10 mg-750 mg Tab RxNorm: 671305 1 Tablet(s) PO Q4H PRN No Start Date 01/12/2010 Inactive Soma 350 mg tablet RxNorm: 042086 1 Tablet(s) PO TID as needed for spasm No Start Date 01/12/2013 Inactive baclofen 10 mg tablet RxNorm: 866820 1 Tablet(s) PO TID as needed for muscle spasm No Start Date 09/18/2019 Inactive Soma 350 mg Tab RxNorm: 557611 1 Tablet(s) PO TID for spasm No Star t Date 01/31/2012 Inactive Co Q-10 400 mg capsule RxNorm: 142442 1 Capsule(s) PO QD No Start D ate 01/21/2019 Inactive nystatin 100,000 unit/gram topical cream RxNorm: 278981 Applica tion TOP BID No Start Date 03/22/2015 Inactive Exforge 5 mg-160 mg Tab RxNorm: 727979 1 Tablet(s) PO QD No Start D ate 10/09/2010 Inactive Hydrocodone-Acetaminophen 7.5 mg-650 mg Tab RxNorm: 482897 1 Ta blet(s) PO Q4H No Start Date 03/07/2010 Inactive Robaxin-750 750 mg Tab RxNorm: 446376 1-2 Tablet(s) PO TID prn spasm No Start Date 05/21/2011 Inactive amlodipine 5 mg tablet RxNorm: 217693 1 Tablet(s) PO QHS No Start D ate 09/29/2015 Inactive oxycodone-acetaminophen 10 mg-325 mg tablet RxNorm: 8186242 1-2 Tablet(s) PO Q6H No Start Date 06/16/2018 Inactive Triamterene-Hydrochlorothiazide 75 mg-50 mg Tab RxNorm: 3108 18 1 Tablet(s) PO QD No Start Date 02/08/2010 Inactive Alprazolam 0.5 mg Tab RxNorm: 941327 2 Tablet(s) PO QD prn No Start Date 03/07/2010 Inactive Bystolic 20 mg tablet RxNorm: 185005 1 Tablet(s) PO QAM No Start Da te 08/17/2015 Inactive ketorolac 10 mg tablet RxNorm: 575211 1 Tablet(s) PO QID prn he adache No Start Date 07/17/2012 Inactive acyclovir 800 mg Tab RxNorm: 204737 1 Tablet(s) PO BID No Start Date 03/18/2012 Inactive duloxetine 60 mg capsule,delayed release RxNorm: 544795 1 Capsu le(s) PO QD No Start Date 09/29/2015 Inactive Norvasc 5 mg tablet RxNorm: 619993 1 Tablet(s) PO QHS No Start Date 1 10/18/2014 Inactive promethazine 25 mg tablet RxNorm: 710966 1 Tablet(s) PO Q8H use sparingly No Start Date 07/22/2013 Inactive alprazolam 0.5 mg tablet RxNorm: 926467 3 Tablet(s) PO QHS No Start Date 06/06/2015 Inactive Lunesta 3 mg tablet RxNorm: 864194 1 Tablet(s) PO QHS No Start Date 0 09/20/2017 Inactive hydrocodone-acetaminophen 10 mg-325 mg Tab RxNorm: 9533761 1-2 Tablet(s) PO TID as needed for pain No Start Date 12/10/2011 Inactive Coricidin HBP Cough & Cold 4 mg-30 mg Tab RxNorm: 6644162 Tablet (s) PO PRN No Start Date 10/09/2010 Inactive Bactroban 2 % Ointment RxNorm: 318444 Application TOP QID to so res No Start Date 02/22/2012 Inactive Flonase 50 mcg/actuation Nasal [place] RxNorm: 684394 2 [place] QHS No Start Date 03/03/2014 Inactive Medication Administered No Medication Administered data Immunizations Vaccine Codes Date Status Tetanus, Diptheria, Pertussis CVX: 115 02/27/2014 Results Observation Observation Code Item Item Code Result Date S vice Location COMPREHENSIVE METABOLIC 20362 AST 15 U/L 2019 Unknown COMPREHENSIVE METABOLIC 75371 ALT 13 U/L 2019 Unknown COMPREHENSIVE METABOLIC 49461 BUN 12 mg/dL 2019 Unknown COMPREHENSIVE METABOLIC 99310 ALBUMIN 3.9 g/dL 2019 Unknown COMPREHENSIVE METABOLIC 49815 CHLORIDE 97 mmol/L 2019 Unknown COMPREHENSIVE METABOLIC 36366 Bili Total 0.4 mg/dL 09/29 Unknown COMPREHENSIVE METABOLIC 52003 ALK PHOS 130 U/L 2019 Unknown COMPREHENSIVE METABOLIC 00304 SODIUM 136 mmol/L 09/29 Unknown COMPREHENSIVE METABOLIC 19683 CREATININE 0.92 mg/dL 09/11 Unknown COMPREHENSIVE METABOLIC 14130 CALCIUM 9.1 mg/dL 2019 Unknown COMPREHENSIVE METABOLIC 03867 POTASSIUM 4.4 mmol/L 09/29 Unknown COMPREHENSIVE METABOLIC 67534 Total Protein 6.2 g/dL Unknown COMPREHENSIVE METABOLIC 33504 Glucose 391 mg/dL 2019 Unknown COMPREHENSIVE METABOLIC 21550 Bicarbonate 30 mmol/L 09/11 Unknown COMPREHENSIVE METABOLIC 73051 AGAP 9 mmol/L 2019 Unknown MEAN GLUC 6031163 Calc Mean Gluc 332 mg/dL 09/29/2019 Unkn own COMPLETE BLOOD COUNT 8880011 WBC 7.0 10e9/L 09/29/19 Unknown COMPLETE BLOOD COUNT [id number] RBC 4.69 10e12/L 2019 Unknown COMPLETE BLOOD COUNT 1795223 HEMOGLOBIN 14.6 g/dL 09/29/19 Unknown COMPLETE BLOOD COUNT [id number] HEMATOCRIT 45.2 % 09/29/19 Unknown COMPLETE BLOOD COUNT 6694593 MCV 96.4 fL 0 Unknown COMPLETE BLOOD COUNT 2501425 MCH 31.1 pg 0 Unknown COMPLETE BLOOD COUNT 8867953 MCHC 32.3 g/dL 0 Unknown COMPLETE BLOOD COUNT 2916171 PLATELET COUNT 209 10e9/L Unknown COMPLETE BLOOD COUNT 8460465 Mean Plt Volume 9.8 fL Unknown COMPLETE BLOOD COUNT 2358055 Neut Auto 48.1 % 0 Unknown COMPLETE BLOOD COUNT 9173421 Lymph Auto 36.5 % 09/29/19 20 Unknown COMPLETE BLOOD COUNT 6894966 Clare Auto 8.6 % 0 Unknown COMPLETE BLOOD COUNT 1012418 RDW 13.4 % 0 Unknown COMPLETE BLOOD COUNT 6635009 Eos Auto 6.5 % 0 Unknown COMPLETE BLOOD COUNT 0339968 Baso Auto 0.3 % 0 Unknown COMPLETE BLOOD COUNT 6787923 Neutrophil Abs 3.37 10e9/L Unknown COMPLETE BLOOD COUNT 9652202 Lymphocyte Abs 2.56 10e9/L Unknown COMPLETE BLOOD COUNT [id number] Monocyte Abs 0.60 10e9/L 09/11 Unknown COMPLETE BLOOD COUNT 8666271 Eosinophil Abs 0.46 10e9/L Unknown COMPLETE BLOOD COUNT 7159713 RDW-SD 45.9 fL 0 Unknown COMPLETE BLOOD COUNT 9757175 Basophil Abs 0.02 10e9/L 09/11 Unknown LIPID GROUP 83651 Cholesterol 248 mg/dL 09/29/2019 Unkno wn LIPID GROUP 33528 Triglyceride 898 mg/dL 09/29/2019 Unkn own LIPID GROUP 88711 HDL CHOLESTEROL 41 mg/dL 09/29/2019 U nknown LIPID GROUP 91500 Chol/HDL Ratio 6.05 ratio 09/29/2019 U nknown LIPID GROUP 93516 NON-HDL Chol 207 mg/dL 09/29/2019 Unkn own LIPID GROUP 37701 LDL Cholesterol N/A Trig >400 020 Unknown GLYCOSYLATED HEMOGLOBIN TEST 58646 Hgb A1c 76947-6 13.2 % 0 09/29/2019 Unknown FREE T4 75251 T4 Free 0.75 ng/dL 09/29/2019 Unknown GFR CALC 9120329 GFR Non Afr Amr >60 mL/min 09/29/2019 Un known GFR CALC 5316211 GFR Afr Amr >60 mL/min 09/29/2019 Unknow n THYROID STIMULATING HORMONE 08727 TSH 4.245 uIU/mL 09/29/2019 Unknown COMPLETE BLOOD COUNT 5634895 WBC 10.7 10e9/L 018 Unknown COMPLETE BLOOD COUNT 3101200 RBC 4.59 10e12/L 2017 Unknown COMPLETE BLOOD COUNT 3905887 HEMOGLOBIN 14.8 g/dL 12/11/19 18 Unknown COMPLETE BLOOD COUNT 7413055 HEMATOCRIT 44.9 % 12/11/19 18 Unknown COMPLETE BLOOD COUNT 4183076 MCV 97.8 fL 8 Unknown COMPLETE BLOOD COUNT 8984377 MCH 32.2 pg 8 Unknown COMPLETE BLOOD COUNT 4584294 MCHC 33.0 g/dL 8 Unknown COMPLETE BLOOD COUNT 5263546 PLATELET COUNT 261 10e9/L 10/2017 Unknown COMPLETE BLOOD COUNT 5005382 Mean Plt Volume 9.5 fL 10/2017 Unknown COMPLETE BLOOD COUNT 7406017 Neut Auto 59.9 % 8 Unknown COMPLETE BLOOD COUNT 6173520 Lymph Auto 27.4 % 12/11/19 18 Unknown COMPLETE BLOOD COUNT 1424441 Clare Auto 8.2 % 8 Unknown COMPLETE BLOOD COUNT 3347717 RDW 13.3 % 8 Unknown COMPLETE BLOOD COUNT 3612284 Eos Auto 4.1 % 8 Unknown COMPLETE BLOOD COUNT 9096774 Baso Auto 0.4 % 8 Unknown COMPLETE BLOOD COUNT 7697429 Neutrophil Abs 6.41 10e9/L Unknown COMPLETE BLOOD COUNT 2360990 Lymphocyte Abs 2.93 10e9/L Unknown COMPLETE BLOOD COUNT 6009277 Monocyte Abs 0.88 10e9/L 10/2017 Unknown COMPLETE BLOOD COUNT [id number] Eosinophil Abs 0.44 10e9/L Unknown COMPLETE BLOOD COUNT 6581729 RDW-SD 46.2 fL 8 Unknown COMPLETE BLOOD COUNT 6130728 Basophil Abs 0.04 10e9/L 10/2017 Unknown THYROID STIMULATING HORMONE 85805 TSH 4.015 uIU/mL 12/10/2017 Unknown COMPREHENSIVE METABOLIC 56930 AST 25 U/L 2017 Unknown COMPREHENSIVE METABOLIC 83920 ALT 17 U/L 2017 Unknown COMPREHENSIVE METABOLIC 03722 BUN 19 mg/dL 2017 Unknown COMPREHENSIVE METABOLIC 63905 ALBUMIN 4.0 g/dL 2017 Unknown COMPREHENSIVE METABOLIC 55160 CHLORIDE 91 mmol/L 2017 Unknown COMPREHENSIVE METABOLIC 21717 Bili Total 0.5 mg/dL 12/10 Unknown COMPREHENSIVE METABOLIC 89207 ALK PHOS 75 U/L 2017 Unknown COMPREHENSIVE METABOLIC 06287 SODIUM 136 mmol/L 12/10 Unknown COMPREHENSIVE METABOLIC 35415 CREATININE 1.05 mg/dL 10/2017 Unknown COMPREHENSIVE METABOLIC 42003 CALCIUM 8.9 mg/dL 2017 Unknown COMPREHENSIVE METABOLIC 92600 POTASSIUM 3.4 mmol/L 12/10 Unknown COMPREHENSIVE METABOLIC 88555 Total Protein 6.5 g/dL Unknown COMPREHENSIVE METABOLIC 08534 Glucose 138 mg/dL 2017 Unknown COMPREHENSIVE METABOLIC 72834 Bicarbonate 35 mmol/L 10/2017 Unknown COMPREHENSIVE METABOLIC 10882 AGAP 10 mmol/L 2017 Unknown MEAN GLUC 4207050 Calc Mean Gluc 171 mg/dL 12/10/2017 Unkn own LIPID GROUP 99578 Cholesterol 204 mg/dL 12/10/2017 Unkno wn LIPID GROUP 77288 Triglyceride 411 mg/dL 12/10/2017 Unkn own LIPID GROUP 70629 HDL CHOLESTEROL 50 mg/dL 12/10/2017 U nknown LIPID GROUP 82690 Chol/HDL Ratio 4.08 ratio 12/10/2017 U nknown LIPID GROUP 04214 NON-HDL Chol 154 mg/dL 12/10/2017 Unkn own LIPID GROUP 51901 LDL Cholesterol N/A Trig >400 018 Unknown GLYCOSYLATED HEMOGLOBIN TEST 23133 Hgb A1c 82187-4 7.6 % 0 12/10/2017 Unknown FREE T4 26333 T4 Free 1.40 ng/dL 12/10/2017 Unknown GFR CALC 7217490 GFR Non Afr Amr 55 mL/min 12/10/2017 Unk nown GFR CALC 5784867 GFR Afr Amr >60 mL/min 12/10/2017 Unknow n GFR CALC 4183323 GFR Non Afr Amr 48 mL/min 06/28/2017 Unk nown GFR CALC 3524042 GFR Afr Amr 59 mL/min 06/28/2017 Unknown COMPREHENSIVE METABOLIC 87808 AST 32 U/L 2016 Unknown COMPREHENSIVE METABOLIC 69674 ALT 22 U/L 2016 Unknown COMPREHENSIVE METABOLIC 51053 BUN 23 mg/dL 2016 Unknown COMPREHENSIVE METABOLIC 67795 ALBUMIN 4.7 g/dL 2016 Unknown COMPREHENSIVE METABOLIC 76537 CHLORIDE 89 mmol/L 2016 Unknown COMPREHENSIVE METABOLIC 30528 Bili Total 0.5 mg/dL 06/28 Unknown COMPREHENSIVE METABOLIC 95321 ALK PHOS 90 U/L 2016 Unknown COMPREHENSIVE METABOLIC 24184 SODIUM 135 mmol/L 06/28 Unknown COMPREHENSIVE METABOLIC 03528 CREATININE 1.18 mg/dL 06/10 Unknown COMPREHENSIVE METABOLIC 55953 CALCIUM 9.7 mg/dL 2016 Unknown COMPREHENSIVE METABOLIC 21148 POTASSIUM 3.5 mmol/L 06/28 Unknown COMPREHENSIVE METABOLIC 61124 Total Protein 7.7 g/dL Unknown COMPREHENSIVE METABOLIC 09061 Glucose 129 mg/dL 2016 Unknown COMPREHENSIVE METABOLIC 50758 Bicarbonate 34 mmol/L 06/10 Unknown COMPREHENSIVE METABOLIC 45696 AGAP 12 mmol/L 2016 Unknown LIPID GROUP 99318 HDL TEST 64 MG/DL 08/27/2014 Unknown LIPID GROUP 90813 TRIG 222 MG/DL 08/27/2014 Unknown LIPID GROUP 87984 TEST LDL 209 MG/DL 08/27/2014 Unknown LIPID GROUP 13604 CHOL 317 MG/DL 08/27/2014 Unknown LIPID GROUP 59377 RCHOL/HDL 4.95 RATIO 08/27/2014 Unknow n LIPID GROUP 17355 NON-HDL CH 253 MG/DL 08/27/2014 Unknow n GFR CALC 8389798 GFR AA >60 ML/MIN 08/27/2014 Unknown GFR CALC 7449929 GFR NON-AA >60 ML/MIN 08/27/2014 Unknown COMPLETE BLOOD COUNT 5022025 WBC 7.0 10e9/L 08/27/20 14 Unknown COMPLETE BLOOD COUNT 8123914 RBC 4.98 10e12/L 2013 Unknown COMPLETE BLOOD COUNT 3888937 HGB 15.6 g/dL 4 Unknown COMPLETE BLOOD COUNT 4010385 HCT DET 46.5 % 4 Unknown COMPLETE BLOOD COUNT 0781041 MCV 93.4 fL 4 Unknown COMPLETE BLOOD COUNT 3237434 MCH 31.3 pg 4 Unknown COMPLETE BLOOD COUNT 8855309 MCHC 33.5 g/dL 4 Unknown COMPLETE BLOOD COUNT 1759754 PLT 309 10e9/L 08/27/20 14 Unknown COMPLETE BLOOD COUNT 2979954 MPV 9.6 fL 4 Unknown COMPLETE BLOOD COUNT 2500229 CADEN % 57.2 % 4 Unknown COMPLETE BLOOD COUNT 7117911 LY % 33.2 % 4 Unknown COMPLETE BLOOD COUNT 0277822 MON % 7.3 % 4 Unknown COMPLETE BLOOD COUNT 1553993 EOS % 2.0 % 4 Unknown COMPLETE BLOOD COUNT 2486634 BASO % 0.3 % 4 Unknown COMPLETE BLOOD COUNT 5265470 RDW 13.7 % 4 Unknown COMPLETE BLOOD COUNT 3467414 ABS CADEN 4.00 10e9/L 014 Unknown COMPLETE BLOOD COUNT 1000729 ABS LYMPH 2.32 10e9/L 014 Unknown COMPLETE BLOOD COUNT 2259524 ABS MONO 0.51 10e9/L 014 Unknown COMPLETE BLOOD COUNT 2339942 ABS EOS 0.14 10e9/L 014 Unknown COMPLETE BLOOD COUNT 8239520 ABS BASO 0.02 10e9/L 014 Unknown COMPLETE BLOOD COUNT 3970439 RDW-SD 45.1 fL 4 Unknown COMPREHENSIVE METABOLIC 95177 AST 13 U/L 2013 Unknown COMPREHENSIVE METABOLIC 38110 ALT 11 IU/L 2013 Unknown COMPREHENSIVE METABOLIC 82847 BUN 23 MG/DL 2013 Unknown COMPREHENSIVE METABOLIC 25637 ALBUMIN 4.4 GM/DL 2013 Unknown COMPREHENSIVE METABOLIC 66755 CHLORIDE 99 MMOL/L 2013 Unknown COMPREHENSIVE METABOLIC 17840 BILI TOT 0.5 MG/DL 2013 Unknown COMPREHENSIVE METABOLIC 84235 ALK PHOS 56 U/L 2013 Unknown COMPREHENSIVE METABOLIC 65153 SODIUM 138 MMOL/L 08/27 Unknown COMPREHENSIVE METABOLIC 48954 CREATININE 0.95 MG/DL 08/10 Unknown COMPREHENSIVE METABOLIC 76342 CALCIUM 9.8 MG/DL 2013 Unknown COMPREHENSIVE METABOLIC 78250 POTASSIUM 3.5 MMOL/L 08/27 Unknown COMPREHENSIVE METABOLIC 17895 PROT TOT 6.8 GM/DL 2013 Unknown COMPREHENSIVE METABOLIC 16270 Glucose 90 MG/DL 2013 Unknown COMPREHENSIVE METABOLIC 80056 BICARB 34 MMOL/L 2013 Unknown COMPREHENSIVE METABOLIC 23351 ANION GAP 5 MEQ/L 2013 Unknown LIPASE 78500 LIPASE 11 IU/L 07/21/2014 Unknown AMYLASE 18507 AMYLASE 39 IU/L 07/21/2014 Unknown HEMOGLOBIN A1C (GLYCOSYLATED) 5463496 A1C HPLC 83402-5 6.2 % 03/05/2013 Unknown THYROID STIMULATING HORMONE 34709 TSH 6.986 uIU/ML 03/05/2013 Unknown COMPLETE BLOOD COUNT 0139405 WBC 12.7 10e9/L 013 Unknown COMPLETE BLOOD COUNT 4172078 RBC 4.53 10e12/L 2012 Unknown COMPLETE BLOOD COUNT 2390179 HGB 14.7 g/dL 3 Unknown COMPLETE BLOOD COUNT 3345339 HCT DET 43.1 % 3 Unknown COMPLETE BLOOD COUNT 0844903 MCV 95.1 fL 3 Unknown COMPLETE BLOOD COUNT 8606390 MCH 32.5 pg 3 Unknown COMPLETE BLOOD COUNT 1941757 MCHC 34.1 g/dL 3 Unknown COMPLETE BLOOD COUNT 7492093 PLT 346 10e9/L 03/05/20 13 Unknown COMPLETE BLOOD COUNT 2664771 MPV 9.5 fL 3 Unknown COMPLETE BLOOD COUNT 5392331 CADEN % 67.6 % 3 Unknown COMPLETE BLOOD COUNT 1633126 LY % 22.1 % 3 Unknown COMPLETE BLOOD COUNT 7972020 MON % 6.6 % 3 Unknown COMPLETE BLOOD COUNT 5649129 EOS % 3.3 % 3 Unknown COMPLETE BLOOD COUNT 5902929 BASO % 0.4 % 3 Unknown COMPLETE BLOOD COUNT 9188853 RDW 14.0 % 3 Unknown COMPLETE BLOOD COUNT 8685345 ABS CADEN 8.59 10e9/L 013 Unknown COMPLETE BLOOD COUNT 7759333 ABS LYMPH 2.81 10e9/L 013 Unknown COMPLETE BLOOD COUNT 6532817 ABS MONO 0.84 10e9/L 013 Unknown COMPLETE BLOOD COUNT 7232016 ABS EOS 0.42 10e9/L 013 Unknown COMPLETE BLOOD COUNT 4762593 ABS BASO 0.05 10e9/L 013 Unknown COMPLETE BLOOD COUNT 1600738 RDW-SD 46.0 fL 06/26/201 3 Unknown FREE T4 52672 FREE T4 1.14 NG/DL 03/05/2013 Unknown COMPREHENSIVE METABOLIC 29905 AST 17 U/L 2012 Unknown COMPREHENSIVE METABOLIC 44700 ALT 12 IU/L 2012 Unknown COMPREHENSIVE METABOLIC 72071 BUN 24 MG/DL 2012 Unknown COMPREHENSIVE METABOLIC 10626 ALBUMIN 4.2 GM/DL 2012 Unknown COMPREHENSIVE METABOLIC 74753 CHLORIDE 93 MMOL/L 2012 Unknown COMPREHENSIVE METABOLIC 90214 BILI TOT 0.5 MG/DL 2012 Unknown COMPREHENSIVE METABOLIC 64407 ALK PHOS 75 U/L 2012 Unknown COMPREHENSIVE METABOLIC 07561 SODIUM 141 MMOL/L 03/05 Unknown COMPREHENSIVE METABOLIC 34211 CREATININE 1.36 MG/DL 02/09 Unknown COMPREHENSIVE METABOLIC 83022 CALCIUM 9.2 MG/DL 2012 Unknown COMPREHENSIVE METABOLIC 98104 POTASSIUM 3.1 MMOL/L 03/05 Unknown COMPREHENSIVE METABOLIC 40855 PROT TOT 6.9 GM/DL 2012 Unknown COMPREHENSIVE METABOLIC 47282 Glucose 123 MG/DL 2012 Unknown COMPREHENSIVE METABOLIC 33698 BICARB 36 MMOL/L 2012 Unknown COMPREHENSIVE METABOLIC 45302 ANION GAP 12 MEQ/L 2012 Unknown GFR CALC 0524837 GFR AA 51.0L ML/MIN 03/05/2013 Unknow n GFR CALC 8807616 GFR NON-AA 42.0L ML/MIN 03/05/2013 Unkno wn COMPREHENSIVE METABOLIC 73910 AST 14 U/L 2012 Unknown COMPREHENSIVE METABOLIC 61315 ALT 11 IU/L 2012 Unknown COMPREHENSIVE METABOLIC 14599 BUN 16 MG/DL 2012 Unknown COMPREHENSIVE METABOLIC 10605 ALBUMIN 4.2 GM/DL 2012 Unknown COMPREHENSIVE METABOLIC 11008 CHLORIDE 98 MMOL/L 2012 Unknown COMPREHENSIVE METABOLIC 70706 BILI TOT 0.4 MG/DL 2012 Unknown COMPREHENSIVE METABOLIC 88384 ALK PHOS 77 U/L 2012 Unknown COMPREHENSIVE METABOLIC 73671 SODIUM 139 MMOL/L 09/25 Unknown COMPREHENSIVE METABOLIC 70792 CREATININE 0.86 MG/DL 09/10 Unknown COMPREHENSIVE METABOLIC 17522 CALCIUM 9.5 MG/DL 2012 Unknown COMPREHENSIVE METABOLIC 08703 POTASSIUM 3.8 MMOL/L 09/25 Unknown COMPREHENSIVE METABOLIC 02669 PROT TOT 6.8 GM/DL 2012 Unknown COMPREHENSIVE METABOLIC 48813 Glucose 91 MG/DL 2012 Unknown COMPREHENSIVE METABOLIC 35016 BICARB 32 MMOL/L 2012 Unknown COMPREHENSIVE METABOLIC 03295 ANION GAP 9 MEQ/L 2012 Unknown FREE T4 87671 FREE T4 0.98 NG/DL 09/25/2012 Unknown THYROID STIMULATING HORMONE 81310 TSH 1.736 uIU/ML 09/25/2012 Unknown C-REACTIVE PROTEIN (CRP) QUANT 60509 CRP 2.3 MG/DL 09/25/2012 Unknown COMPLETE BLOOD COUNT 3725349 WBC 11.9 10e9/L 013 Unknown COMPLETE BLOOD COUNT 4934857 RBC 4.87 10e12/L 2012 Unknown COMPLETE BLOOD COUNT 5319319 HGB 15.1 g/dL 3 Unknown COMPLETE BLOOD COUNT 9369092 HCT DET 44.8 % 3 Unknown COMPLETE BLOOD COUNT 8887551 MCV 92.0 fL 3 Unknown COMPLETE BLOOD COUNT 0428945 MCH 31.0 pg 3 Unknown COMPLETE BLOOD COUNT 1083887 MCHC 33.7 g/dL 3 Unknown COMPLETE BLOOD COUNT 0313852 PLT 343 10e9/L 09/25/19 13 Unknown COMPLETE BLOOD COUNT 7569875 MPV 9.0 fL 3 Unknown COMPLETE BLOOD COUNT 4213076 CADEN % 68.2 % 3 Unknown COMPLETE BLOOD COUNT 0789223 LY % 22.4 % 3 Unknown COMPLETE BLOOD COUNT 7498736 MON % 6.4 % 3 Unknown COMPLETE BLOOD COUNT 1852640 EOS % 2.7 % 3 Unknown COMPLETE BLOOD COUNT 0833764 BASO % 0.3 % 3 Unknown COMPLETE BLOOD COUNT 3256192 RDW 13.8 % 3 Unknown COMPLETE BLOOD COUNT 6564944 ABS CADEN 8.12 10e9/L 013 Unknown COMPLETE BLOOD COUNT 0853254 ABS LYMPH 2.67 10e9/L 013 Unknown COMPLETE BLOOD COUNT 2333605 ABS MONO 0.76 10e9/L 013 Unknown COMPLETE BLOOD COUNT 9185263 ABS EOS 0.32 10e9/L 013 Unknown COMPLETE BLOOD COUNT 2760236 ABS BASO 0.04 10e9/L 013 Unknown COMPLETE BLOOD COUNT 8506590 RDW-SD 45.6 fL 3 Unknown GFR CALC 0858215 GFR AA >60 ML/MIN 09/25/2012 Unknown GFR CALC 9782283 GFR NON-AA >60 ML/MIN 09/25/2012 Unknown ERYTHROCYTE SEDIMENTATION RATE 12736 ESR 19 MM/HR 05/06/2012 Unknown VITAMIN B 12 FOLIC ACID 35610|59146 VIT B 12 922 PG/ML 04/11 Unknown VITAMIN B 12 FOLIC ACID 83409|82298 FOLIC ACID 13.6 NG/ML Unknown URIC ACID 30685 URIC ACID 7.8 MG/DL 05/06/2012 Unknown COMPLETE BLOOD COUNT 80657 WBC 11.9 10e9/L 012 Unknown COMPLETE BLOOD COUNT 42893 RBC 5.30 10e12/L 2011 Unknown COMPLETE BLOOD COUNT 30745 HGB 16.6 g/dL 2 Unknown COMPLETE BLOOD COUNT 89192 HCT DET 47.2 % 2 Unknown COMPLETE BLOOD COUNT 42111 MCV 89.1 fL 2 Unknown COMPLETE BLOOD COUNT 67440 MCH 31.3 pg 2 Unknown COMPLETE BLOOD COUNT 13845 MCHC 35.2 g/dL 2 Unknown COMPLETE BLOOD COUNT 97918 PLT 362 10e9/L 05/06/20 12 Unknown COMPLETE BLOOD COUNT 52462 MPV 9.4 fL 2 Unknown COMPLETE BLOOD COUNT 51915 CADEN % 68.2 % 2 Unknown COMPLETE BLOOD COUNT 62805 LY % 22.0 % 2 Unknown COMPLETE BLOOD COUNT 00883 MON % 6.9 % 2 Unknown COMPLETE BLOOD COUNT 31191 EOS % 2.6 % 2 Unknown COMPLETE BLOOD COUNT 64804 BASO % 0.3 % 2 Unknown COMPLETE BLOOD COUNT 61455 RDW 12.8 % 2 Unknown COMPLETE BLOOD COUNT 87935 ABS CADEN 8.12 10e9/L 012 Unknown COMPLETE BLOOD COUNT 20364 ABS LYMPH 2.62 10e9/L 08/27/2 012 Unknown COMPLETE BLOOD COUNT 97976 ABS MONO 0.82 10e9/L 012 Unknown COMPLETE BLOOD COUNT 92873 ABS EOS 0.31 10e9/L 012 Unknown COMPLETE BLOOD COUNT 05651 ABS BASO 0.04 10e9/L 012 Unknown COMPLETE BLOOD COUNT 83263 RDW-SD 41.5 fL 2 Unknown GFR CALC 4199631 GFR AA >60 ML/MIN 05/06/2012 Unknown GFR CALC 0622416 GFR NON-AA 58.0L ML/MIN 05/06/2012 Unkno wn FREE T4 23929 FREE T4 1.15 NG/DL 05/06/2012 Unknown THYROID STIMULATING HORMONE 40575 TSH 1.568 uIU/ML 05/06/2012 Unknown COMPREHENSIVE METABOLIC 00485 AST 20 U/L 2011 Unknown COMPREHENSIVE METABOLIC 64796 ALT 12 IU/L 2011 Unknown COMPREHENSIVE METABOLIC 19532 BUN 20 MG/DL 2011 Unknown COMPREHENSIVE METABOLIC 07092 ALBUMIN 4.5 GM/DL 2011 Unknown COMPREHENSIVE METABOLIC 57119 CHLORIDE 91 MMOL/L 2011 Unknown COMPREHENSIVE METABOLIC 90047 BILI TOT 0.4 MG/DL 2011 Unknown COMPREHENSIVE METABOLIC 66573 ALK PHOS 73 U/L 2011 Unknown COMPREHENSIVE METABOLIC 03009 SODIUM 139 MMOL/L 05/06 Unknown COMPREHENSIVE METABOLIC 35197 CREATININE 1.02 MG/DL 04/11 Unknown COMPREHENSIVE METABOLIC 64503 CALCIUM 9.7 MG/DL 2011 Unknown COMPREHENSIVE METABOLIC 94201 POTASSIUM 3.1 MMOL/L 05/06 Unknown COMPREHENSIVE METABOLIC 62920 PROT TOT 7.3 GM/DL 2011 Unknown COMPREHENSIVE METABOLIC 51046 Glucose 118 MG/DL 2011 Unknown COMPREHENSIVE METABOLIC 70675 BICARB 33 MMOL/L 2011 Unknown COMPREHENSIVE METABOLIC 78555 ANION GAP 15 MEQ/L 2011 Unknown Procedures Procedure Codes Date ROUTINE VENIPUNCTURE CPT-4: 07447 09/29/2019 URINALYSIS NONAUTO W/O SCOPE CPT-4: 64853 09/29/2019 COMPREHEN METABOLIC PANEL CPT-4: 40669 09/29/2019 LIPID PANEL CPT-4: 09269 09/29/2019 A1C HPLC CPT-4: 57914 09/29/2019 ASSAY OF FREE THYROXINE CPT-4: 27705 09/29/2019 ASSAY THYROID STIM HORMONE CPT-4: 34316 09/29/2019 COMPLETE CBC W/AUTO DIFF WBC CPT-4: 78103 09/29/2019 URINALYSIS NONAUTO W/O SCOPE CPT-4: 93850 09/30/2018 MICROALBUMIN QUANTITATIVE CPT-4: 26001 09/30/2018 CEFTRIAXONE SODIUM INJECTION CPT-4: J0696 06/19/2018 THER/PROPH/DIAG INJ SC/IM CPT-4: 11795 06/19/2018 CEFTRIAXONE SODIUM INJECTION CPT-4: J0696 06/17/2018 THER/PROPH/DIAG INJ SC/IM CPT-4: 03176 06/17/2018 THER/PROPH/DIAG INJ SC/IM CPT-4: 33854 05/16/2018 KETOROLAC TROMETHAMINE INJ CPT-4: J1885 05/16/2018 ONDANSETRON HCL INJECTION CPT-4: J2405 05/16/2018 THER/PROPH/DIAG INJ SC/IM CPT-4: 97569 05/16/2018 ROUTINE VENIPUNCTURE CPT-4: 42972 03/20/2018 COMPREHEN METABOLIC PANEL CPT-4: 44874 03/20/2018 DEXAMETHASONE SODIUM PHOS CPT-4: J1100 02/11/2018 THER/PROPH/DIAG INJ SC/IM CPT-4: 65132 02/11/2018 TRIAMCINOLONE ACET INJ NOS CPT-4: J3301 02/11/2018 CEFTRIAXONE SODIUM INJECTION CPT-4: J0696 02/01/2018 THER/PROPH/DIAG INJ SC/IM CPT-4: 86025 02/01/2018 CEFTRIAXONE SODIUM INJECTION CPT-4: J0696 01/30/2018 THER/PROPH/DIAG INJ SC/IM CPT-4: 42693 01/30/2018 ROUTINE VENIPUNCTURE CPT-4: 03232 12/10/2017 ASSAY OF FREE THYROXINE CPT-4: 18881 12/10/2017 ASSAY THYROID STIM HORMONE CPT-4: 77870 12/10/2017 COMPREHEN METABOLIC PANEL CPT-4: 36270 12/10/2017 COMPLETE CBC W/AUTO DIFF WBC CPT-4: 73698 12/10/2017 LIPID PANEL CPT-4: 21398 12/10/2017 A1C HPLC CPT-4: 24381 12/10/2017 CEFTRIAXONE SODIUM INJECTION CPT-4: J0696 12/10/2017 THER/PROPH/DIAG INJ SC/IM CPT-4: 27071 12/10/2017 CEFTRIAXONE SODIUM INJECTION CPT-4: J0696 12/07/2017 THER/PROPH/DIAG INJ SC/IM CPT-4: 95489 12/07/2017 DEXAMETHASONE SODIUM PHOS CPT-4: J1100 12/07/2017 THER/PROPH/DIAG INJ SC/IM CPT-4: 88188 12/07/2017 CEFTRIAXONE SODIUM INJECTION CPT-4: J0696 10/08/2017 THER/PROPH/DIAG INJ SC/IM CPT-4: 10035 10/08/2017 CEFTRIAXONE SODIUM INJECTION CPT-4: J0696 09/21/2017 THER/PROPH/DIAG INJ SC/IM CPT-4: 85356 09/21/2017 CEFTRIAXONE SODIUM INJECTION CPT-4: J0696 09/20/2017 THER/PROPH/DIAG INJ SC/IM CPT-4: 72827 09/20/2017 REMOVAL OF NAIL PLATE CPT-4: 37460 08/29/2017 THER/PROPH/DIAG INJ SC/IM CPT-4: 90888 08/29/2017 TRIAMCINOLONE ACET INJ NOS CPT-4: J3301 08/29/2017 CEFTRIAXONE SODIUM INJECTION CPT-4: J0696 08/29/2017 THER/PROPH/DIAG INJ SC/IM CPT-4: 09279 08/29/2017 DESTRUCT PREMALG LESION (Cryosurgery) CPT-4: 11651 ROUTINE VENIPUNCTURE CPT-4: 77343 06/27/2017 ASSAY OF FREE THYROXINE CPT-4: 55621 06/27/2017 ASSAY THYROID STIM HORMONE CPT-4: 21400 06/27/2017 COMPREHEN METABOLIC PANEL CPT-4: 77656 06/27/2017 COMPLETE CBC W/AUTO DIFF WBC CPT-4: 38420 06/27/2017 EXC TR-EXT B9+REECE 0.5 CM< CPT-4: 32548 01/24/2017 THER/PROPH/DIAG INJ SC/IM CPT-4: 89367 08/02/2016 DEXAMETHASONE SODIUM PHOS CPT-4: J1100 08/02/2016 DESTRUCT PREMALG LESION (Cryosurgery) CPT-4: 43479 EXC TR-EXT B9+REECE 0.5 CM< CPT-4: 98679 08/01/2016 AEROBIC WOUND CULTURE & STN CPT-4: 65840 07/06/2016 CEFTRIAXONE SODIUM INJECTION CPT-4: J0696 05/25/2016 THER/PROPH/DIAG INJ SC/IM CPT-4: 11098 05/25/2016 THER/PROPH/DIAG INJ SC/IM CPT-4: 62618 04/26/2016 DEXAMETHASONE SODIUM PHOS CPT-4: J1100 04/26/2016 CEFTRIAXONE SODIUM INJECTION CPT-4: J0696 04/26/2016 THER/PROPH/DIAG INJ SC/IM CPT-4: 77615 04/26/2016 THER/PROPH/DIAG INJ SC/IM CPT-4: 95223 02/09/2016 TRIAMCINOLONE ACET INJ NOS CPT-4: J3301 02/09/2016 URINALYSIS NONAUTO W/O SCOPE CPT-4: 72316 01/24/2016 URINE CULTURE/ COLONY COUNT CPT-4: 92699 01/24/2016 THER/PROPH/DIAG INJ SC/IM CPT-4: 02047 12/08/2015 TRIAMCINOLONE ACET INJ NOS CPT-4: J3301 12/08/2015 THER/PROPH/DIAG INJ SC/IM CPT-4: 51224 10/07/2015 TRIAMCINOLONE ACET INJ NOS CPT-4: J3301 10/07/2015 DESTRUCT PREMALG LESION (Cryosurgery) CPT-4: 96972 THER/PROPH/DIAG INJ SC/IM CPT-4: 64368 03/16/2015 METHYLPREDNISOLONE 40 MG INJ CPT-4: J1030 03/16/2015 DESTRUCT PREMALG LESION (Cryosurgery) CPT-4: 32962 THER/PROPH/DIAG INJ SC/IM CPT-4: 64077 09/11/2014 METHYLPREDNISOLONE 40 MG INJ CPT-4: J1030 09/11/2014 TRIAMCINOLONE ACET INJ NOS CPT-4: J3301 09/11/2014 CEFTRIAXONE SODIUM INJECTION CPT-4: J0696 09/11/2014 THER/PROPH/DIAG INJ SC/IM CPT-4: 26518 09/11/2014 ROUTINE VENIPUNCTURE CPT-4: 27254 08/27/2014 COMPREHEN METABOLIC PANEL CPT-4: 70923 08/27/2014 COMPLETE CBC W/AUTO DIFF WBC CPT-4: 03394 08/27/2014 LIPID PANEL CPT-4: 22949 08/27/2014 ROUTINE VENIPUNCTURE CPT-4: 47116 07/21/2014 ASSAY OF AMYLASE CPT-4: 41053 07/21/2014 ASSAY OF LIPASE CPT-4: 78531 07/21/2014 THER/PROPH/DIAG INJ SC/IM CPT-4: 22745 07/15/2014 TRIAMCINOLONE ACET INJ NOS CPT-4: J3301 07/15/2014 ROUTINE VENIPUNCTURE CPT-4: 39497 05/14/2014 ASSAY OF FREE THYROXINE CPT-4: 67624 05/14/2014 ASSAY THYROID STIM HORMONE CPT-4: 77681 05/14/2014 COMPREHEN METABOLIC PANEL CPT-4: 92804 05/14/2014 COMPLETE CBC W/AUTO DIFF WBC CPT-4: 29879 05/14/2014 LIPID PANEL CPT-4: 30716 05/14/2014 CEFTRIAXONE SODIUM INJECTION CPT-4: J0696 04/21/2014 THER/PROPH/DIAG INJ SC/IM CPT-4: 07048 04/21/2014 THER/PROPH/DIAG INJ SC/IM CPT-4: 19647 04/21/2014 TRIAMCINOLONE ACET INJ NOS CPT-4: J3301 04/21/2014 THER/PROPH/DIAG INJ SC/IM CPT-4: 38707 03/04/2014 METHYLPREDNISOLONE 40 MG INJ CPT-4: J1030 03/04/2014 TRIAMCINOLONE ACET INJ NOS CPT-4: J3301 03/04/2014 CEFTRIAXONE SODIUM INJECTION CPT-4: J0696 03/04/2014 THER/PROPH/DIAG INJ SC/IM CPT-4: 03979 03/04/2014 TDAP VACCINE 7 YRS/> IM CPT-4: 44286 02/27/2014 IMMUNIZATION ADMIN CPT-4: 50054 02/27/2014 DESTRUCT PREMALG LESION (Cryosurgery) CPT-4: 06327 DESTRUCT PREMALG LES 2-14 CPT-4: 95278 01/13/2014 THER/PROPH/DIAG INJ SC/IM CPT-4: 82117 10/21/2013 METHYLPREDNISOLONE 40 MG INJ CPT-4: J1030 10/21/2013 TRIAMCINOLONE ACET INJ NOS CPT-4: J3301 10/21/2013 CEFTRIAXONE SODIUM INJECTION CPT-4: J0696 08/27/2013 THER/PROPH/DIAG INJ SC/IM CPT-4: 70185 08/27/2013 THER/PROPH/DIAG INJ SC/IM CPT-4: 54944 08/27/2013 METHYLPREDNISOLONE 40 MG INJ CPT-4: J1030 08/27/2013 TRIAMCINOLONE ACET INJ NOS CPT-4: J3301 08/27/2013 THER/PROPH/DIAG INJ SC/IM CPT-4: 21901 06/23/2013 METHYLPREDNISOLONE 40 MG INJ CPT-4: J1030 06/23/2013 TRIAMCINOLONE ACET INJ NOS CPT-4: J3301 06/23/2013 THER/PROPH/DIAG INJ SC/IM CPT-4: 28762 05/26/2013 METHYLPREDNISOLONE 40 MG INJ CPT-4: J1030 05/26/2013 TRIAMCINOLONE ACET INJ NOS CPT-4: J3301 05/26/2013 ROUTINE VENIPUNCTURE CPT-4: 27117 03/05/2013 ASSAY OF FREE THYROXINE CPT-4: 83961 03/05/2013 ASSAY THYROID STIM HORMONE CPT-4: 55604 03/05/2013 COMPREHEN METABOLIC PANEL CPT-4: 11785 03/05/2013 COMPLETE CBC W/AUTO DIFF WBC CPT-4: 88760 03/05/2013 A1C GLYCOSYLATED HEMOGLOBIN TEST CPT-4: 57194 013 DRAIN/INJECT JOINT/BURSA CPT-4: 49058 12/04/2012 METHYLPREDNISOLONE 40 MG INJ CPT-4: J1030 12/04/2012 TRIAMCINOLONE ACET INJ NOS CPT-4: J3301 12/04/2012 CEFTRIAXONE SODIUM INJECTION CPT-4: J0696 11/21/2012 THER/PROPH/DIAG INJ SC/IM CPT-4: 89692 11/21/2012 THER/PROPH/DIAG INJ SC/IM CPT-4: 43680 10/14/2012 METHYLPREDNISOLONE 40 MG INJ CPT-4: J1030 10/14/2012 TRIAMCINOLONE ACET INJ NOS CPT-4: J3301 10/14/2012 URINALYSIS NONAUTO W/O SCOPE CPT-4: 27399 09/27/2012 ROUTINE VENIPUNCTURE CPT-4: 65137 09/25/2012 ASSAY OF FREE THYROXINE CPT-4: 24118 09/25/2012 ASSAY THYROID STIM HORMONE CPT-4: 84211 09/25/2012 COMPREHEN METABOLIC PANEL CPT-4: 82280 09/25/2012 COMPLETE CBC W/AUTO DIFF WBC CPT-4: 46475 09/25/2012 C-REACTIVE PROTEIN CPT-4: 05383 09/25/2012 THER/PROPH/DIAG INJ SC/IM CPT-4: 48373 08/29/2012 METHYLPREDNISOLONE 40 MG INJ CPT-4: J1030 08/29/2012 TRIAMCINOLONE ACET INJ NOS CPT-4: J3301 08/29/2012 DESTRUCT PREMALG LESION (Cryosurgery) CPT-4: 34142 THER/PROPH/DIAG INJ SC/IM CPT-4: 81006 05/06/2012 METHYLPREDNISOLONE 40 MG INJ CPT-4: J1030 05/06/2012 TRIAMCINOLONE ACET INJ NOS CPT-4: J3301 05/06/2012 VITAMIN B 12 FOLIC ACID CPT-4: 76861|39345 05/06/2012 RBC SED RATE AUTOMATED CPT-4: 97315 05/06/2012 ROUTINE VENIPUNCTURE CPT-4: 34408 05/06/2012 ASSAY OF FREE THYROXINE CPT-4: 58212 05/06/2012 ASSAY THYROID STIM HORMONE CPT-4: 99835 05/06/2012 COMPREHEN METABOLIC PANEL CPT-4: 50020 05/06/2012 COMPLETE CBC W/AUTO DIFF WBC CPT-4: 61716 05/06/2012 ASSAY OF BLOOD/URIC ACID CPT-4: 40778 05/06/2012 THER/PROPH/DIAG INJ SC/IM CPT-4: 39972 03/19/2012 KETOROLAC TROMETHAMINE INJ CPT-4: J1885 03/19/2012 KETOROLAC TROMETHAMINE INJ CPT-4: J1885 01/30/2012 THER/PROPH/DIAG INJ SC/IM CPT-4: 65582 01/30/2012 PROMETHAZINE HCL INJECTION CPT-4: J2550 01/30/2012 THER/PROPH/DIAG INJ SC/IM CPT-4: 11917 01/24/2012 METHYLPREDNISOLONE 40 MG INJ CPT-4: J1030 01/24/2012 TRIAMCINOLONE ACET INJ NOS CPT-4: J3301 01/24/2012 THER/PROPH/DIAG INJ SC/IM CPT-4: 37074 09/13/2011 KETOROLAC TROMETHAMINE INJ CPT-4: J1885 09/13/2011 THER/PROPH/DIAG INJ SC/IM CPT-4: 24956 09/13/2011 PROMETHAZINE HCL INJECTION CPT-4: J2550 09/13/2011 CEFTRIAXONE SODIUM INJECTION CPT-4: J0696 07/20/2011 THER/PROPH/DIAG INJ SC/IM CPT-4: 68018 07/20/2011 THER/PROPH/DIAG INJ SC/IM CPT-4: 96870 07/20/2011 METHYLPREDNISOLONE INJECTION CPT-4: J2930 07/20/2011 URINALYSIS NONAUTO W/O SCOPE CPT-4: 36851 05/09/2011 CEFTRIAXONE SODIUM INJECTION CPT-4: J0696 05/09/2011 THER/PROPH/DIAG INJ SC/IM CPT-4: 03019 05/09/2011 THER/PROPH/DIAG INJ SC/IM CPT-4: 31960 05/09/2011 PROMETHAZINE HCL INJECTION CPT-4: J2550 05/09/2011 HYDRATION IV INFUSION INIT CPT-4: 12582 05/09/2011 DESTRUCT PREMALG LESION (Cryosurgery) CPT-4: 32586 DESTRUCT PREMALG LES 2-14 CPT-4: 71791 07/19/2010 REMOVAL OF SKIN TAGS <W/15 CPT-4: 27858 05/30/2010 THER/PROPH/DIAG INJ SC/IM CPT-4: 88079 04/05/2010 CEFTRIAXONE SODIUM INJECTION CPT-4: J0696 04/05/2010 TRIAMCINOLONE ACET INJ NOS CPT-4: J3301 04/05/2010 METHYLPREDNISOLONE 40 MG INJ CPT-4: J1030 04/05/2010 THER/PROPH/DIAG INJ SC/IM CPT-4: 05593 04/05/2010 TRIAMCINOLONE ACET INJ NOS CPT-4: J3301 03/09/2010 METHYLPREDNISOLONE 40 MG INJ CPT-4: J1030 03/09/2010 THER/PROPH/DIAG INJ SC/IM CPT-4: 52725 03/09/2010 THER/PROPH/DIAG INJ SC/IM CPT-4: 90033 03/09/2010 CEFTRIAXONE SODIUM INJECTION CPT-4: J0696 03/09/2010 Vital Signs Date Vital 10/07/2019 Blood Pressure 1: 134/82 Code: 8480-6 Heart Rate 1: 105 bpm Respiratory Rate: 17 bpm SpO2: 96% Temperature: 36.8 (C) / 98.2 (F) We ight: 198 lbs 09/30/2019 Blood Pressure 1: 132/80 Code: 8480-6 BMI: 35.8 Code: 54737-8 Heart Rate 1: 88 bpm Height: 5'4" Respiratory Rate: 20 bpm SpO2: 95% Tempera ture: 36.9 (C) / 98.5 (F) Weight: 210 lbs 05/28/2019 Blood Pressure 1: 126/82 Code: 8480-6 BMI: 35.0 Code: 33517-5 Heart Rate 1: 88 bpm Height: 5'4" [...] 1: 128/90 Code: 8480-6 BMI: 37.2 Code: 71036-5 Heart Rate 1: 84 bpm Height: 5'4" Respiratory Rate: 20 bpm SpO2: 95% Tempera ture: 36.6 (C) / 97.8 (F) Weight: 217 lbs 08/27/2018 Blood Pressure 1: 128/88 Code: 8480-6 BMI: 38.3 Code: 69103-5 Heart Rate 1: 84 bpm Height: 5'4" [...] 1: 119/72 Code: 8480-6 BMI: 37.4 Code: 07890-6 Heart Rate 1: 82 bpm Height: 5'4" Respiratory Rate: 12 bpm SpO2: 94% Tempera ture: 35.2 (C) / 95.4 (F) Weight: 218 lbs 12/18/2017 Blood Pressure 1: 128/86 Code: 8480-6 BMI: 37.8 Code: 58217-0 Heart Rate 1: 84 bpm Height: 5'4" [...] 1: 128/82 Code: 8480-6 BMI: 35.5 Code: 94235-8 Heart Rate 1: 84 bpm Height: 5'4" [...] 1: 128/82 Code: 8480-6 BMI: 30.2 Code: 08583-4 Heart Rate 1: 80 bpm Height: 5'4" [...] 1: 128/86 Code: 8480-6 BMI: 32.8 Code: 80126-7 Heart Rate 1: 66 bpm Height: 5'4" Respiratory Rate: 18 bpm Temperature: 36 .3 (C) / 97.3 (F) Weight: 191 lbs 06/23/2013 Blood Pressure 1: 132/94 Code: 8480-6 BMI: 34.0 Code: 53558-5 Heart Rate 1: 84 bpm Height: 5'4" Respiratory Rate: 20 bpm Temperature: 36 .8 (C) / 98.2 (F) Weight: 198 lbs 05/26/2013 Blood Pressure 1: 114/80 Code: 8480-6 BMI: 35.0 Code: 34329-3 Heart Rate 1: 80 bpm Height: 5'4" Respiratory Rate: 20 bpm Temperature: 36 .4 (C) / 97.6 (F) Weight: 204 lbs 04/16/2013 Blood Pressure 1: 114/82 Code: 8480-6 BMI: 36.7 Code: 40900-9 Heart Rate 1: 84 bpm Height: 5'4" Respiratory Rate: 20 bpm Temperature: 36 .7 (C) / 98.0 (F) Weight: 214 lbs 03/05/2013 Blood Pressure 1: 136/90 Code: 8480-6 BMI: 37.1 Code: 87461-2 Heart Rate 1: 84 bpm Height: 5'4" [...] 1: 168/114 Code: 8480-6 BMI: 36.2 Code: 58244-4 Heart Rate 1: 104 bpm Height: 5'4" Respiratory Rate: 20 bpm Temperature: 36 .8 (C) / 98.2 (F) Weight: 211 lbs 11/22/2012 Blood Pressure 1: 128/90 Code: 8480-6 Heart Rate 1: 88 bpm Respiratory Rate: 20 bpm SpO2: 96% Temperature: 36.8 (C) / 98.2 (F) 11/21/2012 Blood Pressure 1: 146/100 Code: 8480-6 BMI: 35.7 Code: 51815-9 Heart Rate 1: 96 bpm Height: 5'4" [...] 1: 138/100 Code: 8480-6 BMI: 35.7 Code: 19640-6 Heart Rate 1: 96 bpm Height: 5'4" Respiratory Rate: 20 bpm Temperature: 36 .8 (C) / 98.2 (F) Weight: 208 lbs 05/06/2012 Blood Pressure 1: 154/102 Code: 8480-6 BMI: 34.7 Code: 81705-9 Heart Rate 1: 116 bpm Height: 5'4" Respiratory Rate: 20 bpm Temperature: 36 .8 (C) / 98.2 (F) Weight: 202 lbs 04/03/2012 Blood Pressure 1: 134/94 Code: 8480-6 BMI: 34.8 Code: 87191-0 Heart Rate 1: 108 bpm Height: 5'4" Respiratory Rate: 20 bpm Temperature: 36 .8 (C) / 98.2 (F) Weight: 203 lbs 03/19/2012 Blood Pressure 1: 148/106 Code: 8480-6 BMI: 35.0 Code: 69613-2 Heart Rate 1: 100 bpm Height: 5'4" Respiratory Rate: 20 bpm Temperature: 36 .6 (C) / 97.9 (F) Weight: 204 lbs 02/22/2012 Blood Pressure 1: 146/94 Code: 8480-6 He art Rate 1: 88 bpm 02/21/2012 Blood Pressure 1: 172/120 Code: 8480-6 B lood Pressure 2: 152/106 Code: 8480-6 Heart Rate 1: 116 bpm 02/20/2012 Blood Pressure 1: 160/100 Code: 8480-6 BMI: 32.0 Code: 25048-7 Heart Rate 1: 84 bpm Height: 5'7" Temperature: 36.5 (C) / 97.7 (F) Weight: 204 lbs 01/30/2012 Blood Pressure 1: 152/110 Code: 8480-6 BMI: 32.0 Code: 36816-8 Heart Rate 1: 116 bpm Height: 5'7" Respiratory Rate: 20 bpm Temperature: 37 .0 (C) / 98.6 (F) Weight: 204 lbs 01/24/2012 Blood Pressure 1: 146/100 Code: 8480-6 BMI: 32.0 Code: 45562-0 Heart Rate 1: 100 bpm Height: 5'7" Respiratory Rate: 20 bpm Temperature: 36 .7 (C) / 98.0 (F) Weight: 204 lbs 01/10/2012 Blood Pressure 1: 156/94 Code: 8480-6 BMI: 32.6 Code: 59942-8 Heart Rate 1: 72 bpm Height: 5'7" Respiratory Rate: 20 bpm Temperature: 36 .8 (C) / 98.2 (F) Weight: 208 lbs 12/11/2011 Blood Pressure 1: 146/100 Code: 8480-6 Heart Rat e 1: 116 bpm Height: 5'7" Respiratory Rate: 20 bpm Temperature: 36.9 (C) / 98.4 (F) We ight: 11/09/2011 Blood Pressure 1: 148/96 Code: 8480-6 BMI: 32.1 Code: 21472-1 Heart Rate 1: 116 bpm Height: 5'7" Respiratory Rate: 20 bpm Temperature: 36 .7 (C) / 98.0 (F) Weight: 205 lbs 09/13/2011 Blood Pressure 1: 126/88 Code: 8480-6 Heart Rate 1: 88 bpm Height: 5'7" Respiratory Rate: 20 bpm Temperature: 36.9 (C) / 98.4 (F) We ight: 08/31/2011 Blood Pressure 1: 118/82 Code: 8480-6 BMI: 32.0 Code: 39194-0 Heart Rate 1: 80 bpm Height: 5'7" Temperature: 36.4 (C) / 97.6 (F) Weight: 204 lbs 07/06/2011 Blood Pressure 1: 128/86 Code: 8480-6 BMI: 30.9 Code: 52174-6 Heart Rate 1: 92 bpm Height: 5'7" Respiratory Rate: 20 bpm Temperature: 36 .9 (C) / 98.4 (F) Weight: 197 lbs 06/06/2011 Blood Pressure 1: 112/74 Code: 8480-6 BMI: 31.0 Code: 22918-6 Heart Rate 1: 72 bpm Height: 5'7" [...] 1: 128/92 Code: 8480-6 BMI: 33.6 Code: 16099-2 Heart Rate 1: 104 bpm Height: 5'4" [...] Check-up Encounters Encounter Performer Location Codes Date ([id number]) OFFICE/OUTPATIENT VISIT EST Diagnosis: Ingrowing nail[ICD10: L60.0] Diagnosis: Type 2 diabetes mellitus with hyperglycemia[ICD10: E11.65] Kathleen Zuniga MARÍA ELENA [employer] [employer] CPT-4: 07339 10/07/2019 ([id number]) OFFICE/OUTPATIENT VISIT EST Diagnosis: DM w/o complication type II, uncontrolled[ICD10: E11.65] Diagnosis: Hypertriglyceridemia[ICD10: E78.1] Diagnosis: Essential hypertension[ICD10: I10] María Elena JEAN [employer] [facility] [employer] CPT-4: 26255 09/30/2019 ([id number]) NURSE/OUTPATIENT VISIT EST Diagnosis: Essential (primary) hypertension[ICD10: I10] Diagnosis: Cervicalgia[ICD10: M54.2] Diagnosis: Hyperglycemia, unspecified[ICD10: R73.9] Diagnosis: Mixed hyperlipidemia[ICD10: E78.2] María Elena JEAN [employer] CPT-4: 75380 09/29/2019 ([id number]) OFFICE/OUTPATIENT VISIT EST Diagnosis: Essential (primary) hypertension[ICD10: I10] Diagnosis: Fall from bed, sequela[ICD10: W06.XXXS] María Elena Hicks SEAMUSDAWN [employer] CPT-4: 99613 05/28/2019 ([id number]) NURSE/OUTPATIENT VISIT EST Diagnosis: Essential (primary) hypertension[ICD10: I10] María Elena Hicks [facility] [employer] CPT-4: 09798 05/19/2019 ([id number]) OFFICE/OUTPATIENT VISIT EST Diagnosis: Essential (primary) hypertension[ICD10: I10] Diagnosis: Type 2 diabetes mellitus with hyperglycemia[ICD10: E11.65] Diagnosis: Intervertebral disc disorders with radiculopathy, 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 CPT-4: 62326 09/30/2018 ([id number]) OFFICE/OUTPATIENT VISIT EST Diagnosis: Pain in left elbow[ICD10: M25.522] Diagnosis: Acute stress reaction[ICD10: F43.0] Diagnosis: Primary insomnia[ICD10: F51.01] Diagnosis: Abnormal weight gain[ICD10: R63.5] María Elena Td [facility] CPT-4: 18943 08/27/2018 ([id number]) OFFICE/OUTPATIENT VISIT EST Diagnosis: Acute recurrent sinusitis, unspecified[ICD10: J01.91] Diagnosis: Follicular disorder, unspecified[ICD10: L73.9] Diagnosis: Tinea corporis[ICD10: B35.4] María Elena [facility] CPT-4: 47366 08/09/2018 ([id number]) OFFICE/OUTPATIENT VISIT EST Diagnosis: Tinea corporis[ICD10: B35.4] Diagnosis: Anxiety disorder, unspecified[ICD10: F41.9] Diagnosis: Menopausal and female climacteric states[ICD10: N95.1] María Elena [facility] CPT-4: 35088 07/22/2018 ([id number]) NURSE/OUTPATIENT VISIT EST Diagnosis: Cellulitis of right toe[ICD10: L03.031] María Elenagael Appiah KYLAH [facility] CPT-4: 90097 06/19/2018 ([id number]) OFFICE/OUTPATIENT VISIT EST Diagnosis: Cellulitis of right toe[ICD10: L03.031] Kathleen Tenadi [facility]LAH [facility] CPT-4: 81754 06/17/2018 ([id number]) OFFICE/OUTPATIENT VISIT EST Diagnosis: Migraine without aura, intractable, without status migrainosus[ICD10: G43.019] Diagnosis: Zoster without complications[ICD10: B02.9] Kathleen [facility] CPT-4: 89147 05/16/2018 ([id number]) OFFICE/OUTPATIENT VISIT EST Diagnosis: Cellulitis of right lower limb[ICD10: L03.115] Kathleen [facility] CPT-4: 51506 03/20/2018 ([id number]) OFFICE/OUTPATIENT VISIT EST Diagnosis: Cellulitis of right lower limb[ICD10: L03.115] Kathleen [facility] CPT-4: 76448 03/18/2018 ([id number]) OFFICE/OUTPATIENT VISIT EST Diagnosis: Cellulitis of right lower limb[ICD10: L03.115] Kathleen [facility] CPT-4: 53569 03/15/2018 ([id number]) OFFICE/OUTPATIENT VISIT EST Diagnosis: Acute sinusitis, unspecified[ICD10: J01.90] Kathleen [facility] CPT-4: 33772 02/11/2018 ([id number]) NURSE/OUTPATIENT VISIT EST Diagnosis: Otitis media, unspecified, right ear[ICD10: H66.91] María Elena [facility] CPT-4: 07129 02/01/2018 ([id number]) OFFICE/OUTPATIENT VISIT EST Diagnosis: Acute suppurative otitis media without spontaneous rupture of ear drum, left ear[ICD10: H66.002] Diagnosis: Abnormal weight gain[ICD10: R63.5] Diagnosis: Intervertebral disc disorders with radiculopathy, 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] Kathleen [facility] CPT-4: 99 214 01/30/2018 ([id number]) PREV VISIT EST AGE 40-64 Diagnosis: Encounter for general adult medical examination without abnormal findings[ICD10: Z00.00] Diagnosis: Essential (primary) hypertension[ICD10: I10] Diagnosis: Mixed hyperlipidemia[ICD10: E78.2] Diagnosis: Type 2 diabetes mellitus with hyperglycemia[ICD10: E11.65] Diagnosis: 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] María Elena [facility] CPT-4: 86480 12/18/2017 ([id number]) OFFICE/OUTPATIENT VISIT EST Diagnosis: Cellulitis of right toe[ICD10: L03.031] Diagnosis: Mixed hyperlipidemia[ICD10: E78.2] Diagnosis: Essential (primary) hypertension[ICD10: I10] Diagnosis: Hyperglycemia, unspecified[ICD10: R73.9] Diagnosis: Nontoxic goiter, 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] María Elena [facility] CPT-4: 97020 12/10/2017 ([id number]) OFFICE/OUTPATIENT VISIT EST Diagnosis: Cellulitis of right toe[ICD10: L03.031] Diagnosis: Acute sinusitis, unspecified[ICD10: J01.90] Kathleen [facility] CPT-4: 54599 12/07/2017 OFFICE/OUTPATIENT VISIT EST Diagnosis: Acute maxillary sinusitis, unspecified[ICD10: J01.00] Kathleen [facility] CPT-4: 87383 10/08/2017 ([id number]) OFFICE/OUTPATIENT VISIT EST Diagnosis: Cellulitis of left toe[ICD10: L03.032] María Elena [facility] CPT-4: 94075 09/21/2017 ([id number]) OFFICE/OUTPATIENT VISIT EST Diagnosis: Insomnia, unspecified[ICD10: G47.00] Diagnosis: Major depressive disorder, single episode, unspecified[ICD10: F32.9] Diagnosis: Anxiety disorder, unspecified[ICD10: F41.9] Diagnosis: Cellulitis of left toe[ICD10: L03.032] Diagnosis: Snoring[ICD10: R06.83] Kathleen [facility] CPT-4: 48499 09/20/2017 ([id number]) OFFICE/OUTPATIENT VISIT EST Diagnosis: Cellulitis of left toe[ICD10: L03.032] María Elena [facility] CPT-4: 64279 07/19/2017 OFFICE/OUTPATIENT VISIT EST Diagnosis: Chronic sinusitis, unspecified[ICD10: J32.9] Diagnosis: Generalized hyperhidrosis[ICD10: R61] Kathleen APPIAH Hailo [facility] CPT-4: 45190 06/27/2017 ([id number]) OFFICE/OUTPATIENT VISIT EST Diagnosis: Intervertebral disc disorders with radiculopathy, 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] Diagnosis: Primary insomnia[ICD10: F51.01] Diagnosis: Other fatigue[ICD10: R53.83] María Elena [facility] CPT-4: 40126 04/10/2017 ([id number]) OFFICE/OUTPATIENT VISIT EST Diagnosis: Primary insomnia[ICD10: F51.01] Diagnosis: Localized edema[ICD10: R60.0] Diagnosis: 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] María Elena [facility] CPT-4: 13614 12/13/2016 ([id number]) OFFICE/OUTPATIENT VISIT EST Diagnosis: Primary insomnia[ICD10: F51.01] Diagnosis: Cyanosis[ICD10: R23.0] María Elena Bazzi [employer] CPT-4: 56960 11/01/2016 ([id number]) PREV VISIT EST AGE 40-64 Diagnosis: Encounter for gynecological examination (general) (routine) without abnormal findings[ICD10: Z01.419] Diagnosis: Encounter for routine child health examination without abnormal findings[ICD10: Z00.129] María Elena [facility] Hailo [facility] CPT-4: 31859 10/17/2016 ([id number]) OFFICE/OUTPATIENT VISIT EST Diagnosis: Other seasonal allergic rhinitis[ICD10: J30.2] María Elena [facility] Hailo [facility] CPT-4: 34508 10/10/2016 ([id number]) OFFICE/OUTPATIENT VISIT EST Diagnosis: Pain in left arm[ICD10: M79.602] Diagnosis: Contact with and (suspected) exposure to potentially hazardous body fluids[ICD10: Z77.21] Diagnosis: 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, 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] Diagnosis: Unspecified open wound, right foot, sequela[ICD10: S91.301S] María Elena [facility] CPT-4: 33558 09/19/2016 ([id number]) OFFICE/OUTPATIENT VISIT EST Diagnosis: Chronic sinusitis, unspecified[ICD10: J32.9] Diagnosis: Allergic rhinitis due to pollen[ICD10: J30.1] María Elena [facility] CPT-4: 92375 08/24/2016 ([id number]) OFFICE/OUTPATIENT VISIT EST Diagnosis: Acute bronchitis, unspecified[ICD10: J20.9] María Elena [facility] CPT-4: 51798 08/16/2016 ([id number]) OFFICE/OUTPATIENT VISIT EST Diagnosis: Otitis media, unspecified, right ear[ICD10: H66.91] Diagnosis: Acute bronchitis, unspecified[ICD10: J20.9] María Elena 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] Diagnosis: Acute recurrent sinusitis, unspecified[ICD10: J01.91] Diagnosis: Other fatigue[ICD10: R53.83] Diagnosis: Primary insomnia[ICD10: F51.01] Diagnosis: Pain in unspecified joint[ICD10: M25.50] María Elena APPIAH Hailo [facility] CPT-4: 04394 07/20/2016 ([id number]) OFFICE/OUTPATIENT VISIT EST Diagnosis: Blister (nonthermal), left great toe, initial encounter[ICD10: S90.422A] Loan APPIA[facility] DO [facility] CPT-4: 65320 ([id number]) OFFICE/OUTPATIENT VISIT EST Diagnosis: Acute recurrent sinusitis, unspecified[ICD10: J01.91] María Elena APPIA[facility] DO [facility] CPT-4: 52639 05/25/2016 ([id number]) OFFICE/OUTPATIENT VISIT EST Diagnosis: Acute sinusitis, unspecified[ICD10: J01.90] María Elena APPIA[facility] DO [facility] CPT-4: 54357 04/26/2016 ([id number]) OFFICE/OUTPATIENT VISIT EST Diagnosis: Flushing[ICD10: R23.2] Diagnosis: Primary insomnia[ICD10: F51.01] María Elena APPIA[facility] DO [facility] CPT-4: 42045 03/02/2016 ([id number]) OFFICE/OUTPATIENT VISIT EST Diagnosis: Other seasonal allergic rhinitis[ICD10: J30.2] Loan APPIA[facility] DO [facility] CPT-4: 17375 02/09/2016 ([id number]) OFFICE/OUTPATIENT VISIT EST Diagnosis: Primary insomnia[ICD10: F51.01] Diagnosis: Urinary tract infection, site not specified[ICD10: N39.0] María Elena APP[facility] DO [facility] CPT-4: 63872 01/24/2016 ([id number]) OFFICE/OUTPATIENT VISIT EST Diagnosis: Other specified disorders of Eustachian tube, bilateral[ICD10: H69.83] Diagnosis: Allergic rhinitis, unspecified[ICD10: J30.9] Loan APPIA[facility] DO [facility] CPT-4: 04415 12/23/2015 ([id number]) OFFICE/OUTPATIENT VISIT EST Diagnosis: Acute recurrent sinusitis, unspecified[ICD10: J01.91] Diagnosis: 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] Diagnosis: Allergic rhinitis, unspecified[ICD10: J30.9] María Elena APP[facility] DO [facility] CPT-4: 69183 12/08/2015 ([id number]) OFFICE/OUTPATIENT VISIT EST Diagnosis: Allergic rhinitis, unspecified[ICD10: J30.9] Diagnosis: Pain in unspecified joint[ICD10: M25.50] María Elena APPIA[facility] DO [facility] CPT-4: 97132 10/07/2015 ([id number]) OFFICE/OUTPATIENT VISIT EST Diagnosis: Essential (primary) hypertension[ICD10: I10] María Elena APPIA[facility] DO [facility] CPT-4: 85097 10/06/2015 OFFICE/OUTPATIENT VISIT EST Diagnosis: Localized enlarged lymph nodes[ICD10: R59.0] Diagnosis: Local infection of the skin and subcutaneous tissue, unspecified[ICD10: L08.9] June VelozAlbertadaniella APP[facility] DO [facility] CPT- 4: 24567 09/14/2015 ([id number]) OFFICE/OUTPATIENT VISIT EST Diagnosis: Essential (primary) hypertension[ICD10: I10] Diagnosis: Actinic keratosis[ICD10: L57.0] María Elena APP[facility] DO [facility] CPT-4: 14488 09/07/2015 ([id number]) OFFICE/OUTPATIENT VISIT EST Diagnosis: Essential (primary) hypertension[ICD10: I10] Diagnosis: Acute stress reaction[ICD10: F43.0] María Elena APP[facility] DO [facility] CPT-4: 89657 08/18/2015 ([id number]) OFFICE/OUTPATIENT VISIT EST Diagnosis: Essential (primary) hypertension[ICD10: I10] María Elena APPIA[facility] DO [facility] CPT-4: 62064 07/07/2015 ([id number]) OFFICE/OUTPATIENT VISIT EST Diagnosis: Essential (primary) hypertension[ICD10: I10] María Elena APPIA[facility] DO [facility] CPT-4: 71931 06/24/2015 ([id number]) OFFICE/OUTPATIENT VISIT EST Diagnosis: Essential (primary) hypertension[ICD10: I10] María Elena APPIA[facility] DO [facility] CPT-4: 83230 06/21/2015 ([id number]) OFFICE/OUTPATIENT VISIT EST Diagnosis: Essential (primary) hypertension[ICD10: I10] Diagnosis: Mixed hyperlipidemia[ICD10: E78.2] Diagnosis: Acute stress reaction[ICD10: F43.0] Diagnosis: Primary insomnia[ICD10: F51.01] María Elena [facility] CPT-4: 63743 06/16/2015 ([id number]) OFFICE/OUTPATIENT VISIT EST Diagnosis: INSOMNIA NOS[ICD9: 780.52] Diagnosis: HYPERTENSION[ICD9: 401.9] Diagnosis: Stress reaction[ICD9: 308.9] María Elena [facility] CPT-4: 30178 06/02/2015 ([id number]) OFFICE/OUTPATIENT VISIT EST Diagnosis: HYPERTENSION[ICD9: 401.9] Diagnosis: Stress reaction[ICD9: 308.9] María Elena 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: 61019 05/10/2015 ([id number]) OFFICE/OUTPATIENT VISIT EST Diagnosis: SINUSITIS, ACUTE[ICD9: 461.9] Diagnosis: ALLERGIC RHINITIS[ICD9: 477.9] Diagnosis: DERMATITIS NOS[ICD9: 692.9] María Elena ELLISLINE LucioJj Marcos [facility]I [facility] CPT-4: 99320 03/16/2015 OFFICE/OUTPATIENT VISIT EST Diagnosis: Otitis media[ICD9: 382.9] Diagnosis: SINUSITIS, ACUTE[ICD9: 461.9] June Flores MARÍA ELENA LucioJj [facility]PT[facility]: 61453 09/11/2014 ([id number]) OFFICE/OUTPATIENT VISIT EST Diagnosis: HYPERLIPIDEMIA NEC/NOS[ICD9: 272.4] María Elena Seamusdawn COLON LucioJj [facility]PT-[facility]: 93622 08/31/2014 ([id number]) OFFICE/OUTPATIENT VISIT EST Diagnosis: - I - HYPERTENSION[ICD9: 401.9] Diagnosis: HYPERLIPIDEMIA NEC/NOS[ICD9: 272.4] María Elena [facility]IA[facility] CPT-4: 10284 08/27/2014 ([id number]) OFFICE/OUTPATIENT VISIT EST Diagnosis: ABDOMINAL PAIN[ICD9: 789.00] Diagnosis: DYSPEPSIA[ICD9: 536.8] Diagnosis: Thoracic back pain[ICD9: 724.1] María Elena [facility] CPT-4: 39896 07/21/2014 ([id number]) OFFICE/OUTPATIENT VISIT EST Diagnosis: ALLERGIC RHINITIS[ICD9: 477.9] María Elena [facility] CPT-4: 09288 07/15/2014 ([id number]) OFFICE/OUTPATIENT VISIT EST Diagnosis: EDEMA[ICD9: 782.3] Diagnosis: Chronic insomnia[ICD9: 780.52] María Elena [facility] CPT-4: 15162 05/18/2014 ([id number]) OFFICE/OUTPATIENT VISIT EST Diagnosis: Thyromegaly[ICD9: 240.9] Diagnosis: - I - HYPERTENSION[ICD9: 401.9] Diagnosis: ROUTINE MEDICAL EXAM[ICD9: V70.0] Diagnosis: EDEMA[ICD9: 782.3] María Elena [facility] CPT-4: 19077 05/14/2014 OFFICE/OUTPATIENT VISIT EST Diagnosis: BRONCHITIS, ACUTE[ICD9: 466.0] Diagnosis: SINUSITIS, ACUTE[ICD9: 461.9] María Elena [facility] CPT-4: 61918 04/21/2014 OFFICE/OUTPATIENT VISIT EST Diagnosis: SINUSITIS, ACUTE[ICD9: 461.9] June Flores MARÍA ELENA [facility] CPT-4: 81093 03/04/2014 ([id number]) OFFICE/OUTPATIENT VISIT EST Diagnosis: VACCINE FOR TDAP[ICD10: Z23] María Elena [facility] CPT-4: 37380 02/27/2014 ([id number]) OFFICE/OUTPATIENT VISIT EST Diagnosis: Seborrheic keratoses, inflamed[ICD9: 702.11] Diagnosis: ACTINIC KERATOSIS[ICD9: 702.0] Diagnosis: INSOMNIA NOS[ICD9: 780.52] María Elena [facility]ANDYA [facility] CPT-4: 70068 01/13/2014 OFFICE/OUTPATIENT VISIT EST Diagnosis: EUSTACHIAN TUBE DYSFUNCTION[ICD9: 381.81] Diagnosis: ALLERGIC RHINITIS[ICD9: 477.9] Diagnosis: Serous otitis media[ICD9: 381.4] María Elena [facility] CPT-4: 49974 12/24/2013 ([id number]) OFFICE/OUTPATIENT VISIT EST Diagnosis: SINUSITIS, ACUTE[ICD9: 461.9] Diagnosis: ALLERGIC RHINITIS[ICD9: 477.9] Diagnosis: EUSTACHIAN TUBE DYSFUNCTION[ICD9: 381.81] [facility]: 37218 11/12/2013 ([id number]) OFFICE/OUTPATIENT VISIT EST Diagnosis: ALLERGIC RHINITIS[ICD9: 477.9] Diagnosis: SINUSITIS, ACUTE[ICD9: 461.9] María Elena [facility] CPT-4: 34431 10/21/2013 ([id number]) OFFICE/OUTPATIENT VISIT EST Diagnosis: ASYMPTOMATIC VARICOSE VEINS[ICD9: 454.9] Diagnosis: INSOMNIA NOS[ICD9: 780.52] María Elena Valdes [facility]: 72108 09/22/2013 OFFICE/OUTPATIENT VISIT EST Diagnosis: SINUSITIS, ACUTE[ICD9: 461.9] June Flores MARÍA ELENA 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 CPT-4: 42265 08/04/2013 ([id number]) OFFICE/OUTPATIENT VISIT EST Diagnosis: Cervicalgia[ICD9: 723.1] Diagnosis: SPASM OF MUSCLE[ICD9: 728.85] Diagnosis: CEPHALGIA, TENSION[ICD9: 307.81] María Elena [facility] CPT-4: 91358 07/23/2013 ([id number]) OFFICE/OUTPATIENT VISIT EST Diagnosis: EUSTACHIAN TUBE DYSFUNCTION[ICD9: 381.81] Diagnosis: ALLERGIC RHINITIS[ICD9: 477.9] María Elena [facility] CPT-4: 97369 06/23/2013 ([id number]) OFFICE/OUTPATIENT VISIT EST Diagnosis: ALLERGIC RHINITIS[ICD9: 477.9] Diagnosis: ACUTE SEROUS OTITIS MEDIA[ICD9: 381.01] Diagnosis: EUSTACHIAN TUBE DYSFUNCTION[ICD9: 381.81] María Elena [facility] CPT-4: 71396 05/26/2013 ([id number]) OFFICE/OUTPATIENT VISIT EST Diagnosis: HYPERTENSION[ICD9: 401.9] Diagnosis: EDEMA[ICD9: 782.3] Diagnosis: Serous otitis media[ICD9: 381.4] María Elena [facility] CPT-4: 46001 04/16/2013 ([id number]) OFFICE/OUTPATIENT VISIT EST Diagnosis: SINUSITIS, ACUTE[ICD9: 461.9] Diagnosis: ALLERGIC RHINITIS[ICD9: 477.9] Diagnosis: EDEMA[ICD9: 782.3] Diagnosis: Thyromegaly[ICD9: 240.9] Diagnosis: MALAISE AND FATIGUE[ICD9: 780.79] María Elena APPIAH [facility] CPT-4: 97797 03/05/2013 ([id number]) OFFICE/OUTPATIENT VISIT EST Diagnosis: PAIN, LOWER BACK[ICD9: 724.2] Diagnosis: SPASM OF MUSCLE[ICD9: 728.85] María Elena [facility] CPT-4: 16683 12/23/2012 OFFICE/OUTPATIENT VISIT EST Diagnosis: Low back pain[ICD9: 724.2] Lashawn Babar MARÍA ELENA [facility]: 57547 12/16/2012 ([id number]) OFFICE/OUTPATIENT VISIT EST Diagnosis: PAIN, LOWER BACK[ICD9: 724.2] Diagnosis: SCIATICA[ICD9: 724.3] Diagnosis: Lumbar herniated disc[ICD9: 722.10] María Elena COLON LucioJj TD GARIBAY [facility] CPT-4: 30660 12/09/2012 ([id number]) OFFICE/OUTPATIENT VISIT EST Diagnosis: PAIN, LOWER BACK[ICD9: 724.2] Diagnosis: SCIATICA[ICD9: 724.3] Diagnosis: LUMBAR DISC DISPLACEMENT[ICD9: 722.10] María Elena MARIN LucioJj TD [facility] CPT-4: 86854 12/04/2012 OFFICE/OUTPATIENT VISIT EST Diagnosis: Pneumonia[ICD9: 486] Mary JUARES [facility]Jj [facility]: 09945 11/22/2012 ([id number]) OFFICE/OUTPATIENT VISIT EST Diagnosis: PNEUMONIA, ORGANISM[ICD9: 486] Diagnosis: Exacerbation of RAD (reactive airway disease)[ICD9: 493.92] María Elena JUARES LucioJj TD [facility] CPT-4: 37602 11/21/2012 OFFICE/OUTPATIENT VISIT EST Diagnosis: HYPERTENSION[ICD9: 401.9] Diagnosis: Cephalgia[ICD9: 784.0] Lashawn Hicks SEAMUSYESIVICTORINO GARIBAY [facility] CPT-4: 40984 10/29/2012 ([id number]) OFFICE/OUTPATIENT VISIT EST Diagnosis: MALAISE AND FATIGUE[ICD9: 780.79] Diagnosis: ARTHRALGIA-MULTIPLE SITES[ICD9: 719.49] María Elena REED LucioJj TD GARIBAY [facility] CPT-4: 90608 10/14/2012 ([id number]) OFFICE/OUTPATIENT VISIT EST Diagnosis: URINARY FREQUENCY[ICD9: 788.41] María Elena JUARES LuicoJj TD GARIBAY [facility] CPT-4: 17423 09/27/2012 ([id number]) OFFICE/OUTPATIENT VISIT EST Diagnosis: MALAISE AND FATIGUE[ICD9: 780.79] Diagnosis: ARTHRALGIA-MULTIPLE SITES[ICD9: 719.49] María Elena [facility] CPT-4: 31853 09/25/2012 ([id number]) OFFICE/OUTPATIENT VISIT EST Diagnosis: SINUSITIS, ACUTE[ICD9: 461.9] Diagnosis: EUSTACHIAN TUBE DYSFUNCTION[ICD9: 381.81] María Elena [facility] CPT-4: 84479 08/29/2012 OFFICE/OUTPATIENT VISIT EST Diagnosis: ACTINIC KERATOSIS[ICD9: 702.0] Diagnosis: Inflamed seborrheic keratosis[ICD9: 702.11] Diagnosis: Skin cancer of face[ICD9: 173.31] Diagnosis: HYPERTENSION[ICD9: 401.9] [facility] 80393 08/12/2012 ([id number]) OFFICE/OUTPATIENT VISIT EST Diagnosis: ARTHRALGIA-MULTIPLE SITES[ICD9: 719.49] Diagnosis: GOUT[ICD9: 274.9] Diagnosis: HYPERTENSION[ICD9: 401.9] Diagnosis: Tachycardia[ICD9: 785.0] María Elena HU [facility] CPT-4: 82232 05/06/2012 ([id number]) OFFICE/OUTPATIENT VISIT EST Diagnosis: INSOMNIA NOS[ICD9: 780.52] [facility]: 11333 04/03/2012 ([id number]) OFFICE/OUTPATIENT VISIT EST Diagnosis: INSOMNIA NOS[ICD9: 780.52] Diagnosis: HYPERTENSION[ICD9: 401.9] Diagnosis: MIGRAINE NOS/NOT INTRCBL[ICD9: 346.90] [facility]: 31132 03/19/2012 ([id number]) OFFICE/OUTPATIENT VISIT EST Diagnosis: CELLULITIS[ICD9: 682.9] Diagnosis: Ankle pain[ICD9: 719.47] Diagnosis: HYPERTENSION[ICD9: 401.9] María [facility] CPT-4: 24208 02/20/2012 ([id number]) OFFICE/OUTPATIENT VISIT EST Diagnosis: MIGRAINE NOS/NOT INTRCBL[ICD9: 346.90] Diagnosis: Vomiting[ICD9: 787.03] María Elena JUARES LucioJj SEAMUSYESIJohn Bazzi [facility] CPT-4: 52290 01/30/2012 ([id number]) OFFICE/OUTPATIENT VISIT EST Diagnosis: EDEMA[ICD9: 782.3] Diagnosis: HYPERTENSION[ICD9: 401.9] Diagnosis: ALLERGIC RHINITIS[ICD9: 477.9] Diagnosis: ARTHRALGIA-MULTIPLE SITES[ICD9: 719.49] María Elena Seamusdawn REED LucioJj TD [facility] CPT-4: 96539 01/24/2012 ([id number]) OFFICE/OUTPATIENT VISIT EST Diagnosis: SPASM OF MUSCLE[ICD9: 728.85] Diagnosis: Thoracic back pain[ICD9: 724.1] Diagnosis: Cervical pain[ICD9: 723.1] María Elena Hicks KRISTYN MUMTAZ [facility] CPT-4: 94057 01/10/2012 OFFICE/OUTPATIENT VISIT EST Diagnosis: PAIN, LOWER BACK[ICD9: 724.2] Diagnosis: LUMBAR DISC DISPLACEMENT[ICD9: 722.10] María Elena MARIN LucioJj TD Hailo [facility] CPT-4: 34752 12/11/2011 OFFICE/OUTPATIENT VISIT EST Diagnosis: MIGRAINE NOS/NOT INTRCBL[ICD9: 346.90] Diagnosis: SINUSITIS, ACUTE[ICD9: 461.9] María Elena Hicks TD Hailo [facility] CPT-4: 75376 11/09/2011 OFFICE/OUTPATIENT VISIT EST Diagnosis: MIGRAINE NOS/NOT INTRCBL[ICD9: 346.90] Diagnosis: LYMPHADENOPATHY[ICD9: 785.6] María Elena Hicks TD Hailo [facility] CPT-4: 32525 09/13/2011 OFFICE/OUTPATIENT VISIT EST Diagnosis: MALAISE AND FATIGUE[ICD9: 780.79] Diagnosis: ARTHRALGIA-MULTIPLE SITES[ICD9: 719.49] María Elena Hicks TD Hailo [facility] CPT-4: 08921 08/31/2011 OFFICE/OUTPATIENT VISIT EST Diagnosis: SINUSITIS, ACUTE[ICD9: 461.9] María Elena ORTAER DO [facility] CPT-4: 93609 07/20/2011 OFFICE/OUTPATIENT VISIT EST Diagnosis: HYPERTENSION[ICD9: 401.9] Diagnosis: PAIN, LOWER BACK[ICD9: 724.2] Diagnosis: SPASM OF MUSCLE[ICD9: 728.85] María Elena ORTAER DO [facility] CPT-4: 40677 07/06/2011 OFFICE/OUTPATIENT VISIT EST Diagnosis: MIGRAINE NOS/NOT INTRCBL[ICD9: 346.90] Diagnosis: HYPERTENSION[ICD9: 401.9] María Elena GODOY NDER [facility] CPT-4: 11784 05/22/2011 OFFICE/OUTPATIENT VISIT EST Diagnosis: SINUSITIS, ACUTE[ICD9: 461.9] Diagnosis: MIGRAINE NOS/NOT INTRCBL[ICD9: 346.90] Diagnosis: Dehydration[ICD9: 276.51] Diagnosis: Vomiting[ICD9: 787.03] María Elena ORTAE R DO [facility] CPT-4: 40932 05/09/2011 ([id number]) OFFICE/OUTPATIENT VISIT EST María Elena MARIN SJj GODOYNDER DO [facility] CPT-4: 69825 02/14/2011 ([id number]) OFFICE/OUTPATIENT VISIT EST María Elena ISAAC UJARED S. ORENDER DO [facility] CPT-4: 85204 02/03/2011 ([id number]) OFFICE/OUTPATIENT VISIT EST María Elena ISAAC UJARED S. ORENDER DO [facility] CPT-4: 87368 01/31/2011 ([id number]) OFFICE/OUTPATIENT VISIT EST María Elena ISAAC UELINE S. ORENDER DO [facility] CPT-4: 00209 01/25/2011 ([id number]) OFFICE/OUTPATIENT VISIT EST María Elena ISAAC UJARED S. ORENDER DO [facility] CPT-4: 22318 01/18/2011 ([id number]) OFFICE/OUTPATIENT VISIT EST María Elena MARIN S. ORENDER DO [facility] CPT-4: 21332 11/29/2010 ([id number]) OFFICE/OUTPATIENT VISIT, EST María Elena [facility] CPT-4: 67155 10/10/2010 ([id number]) OFFICE/OUTPATIENT VISIT, EST María Elena REED S[facility] CPT-4: 51397 06/07/2010 ([id number]) OFFICE/OUTPATIENT VISIT, EST María Elena REED S[facility] CPT-4: 06741 04/27/2010 ([id number]) OFFICE/OUTPATIENT VISIT, EST María Elena REED [facility] CPT-4: 48479 04/05/2010 ([id number]) OFFICE/OUTPATIENT VISIT, EST María Elena REED S[facility] CPT-4: 50038 03/09/2010 ([id number]) OFFICE/OUTPATIENT VISIT, EST María Elena REED S. [facility] CPT-4: 89541 03/03/2010 ([id number]) OFFICE/OUTPATIENT VISIT, EST María Elena REED S[facility] CPT-4: 93784 01/17/2010 ([id number]) PREV VISIT, EST, AGE 40-64 María Elena COLEMAN SJj GODOYNDER DO [facility] CPT-4: 95020 12/27/2009 Plan of Care Planned Activity Notes [...] : E11.65 10/07/2019 Appointment: Kathleen Zuniga [address] [facility] [place] OFFICE SURGERY 10/07/2019 Visit Diagnosis Plan: [...] 09/30/2019 Appointment: María Elena Appiah WPtel: [address] [place], [place] [phone] [place] CHECK UP 09/30/2019 Patient Education: Premarin- [employer] Coupon [id number] https://www.[employer].com/samplemd/resources/getResource/61/51399b90-h183-6vuy-m8 Completed 09/30/2019 Appointment: María Elena Appiah WPtel: [address] [place], [place] [phone] [place] LAB 09/29/2019 Appointment: María Elena Appiah WPtel: [address] [place] [address] [place] Won't have the new insurance till [...] W06.XXXS 05/28/2019 Appointment: María Elena Appiah WPtel: [address] [place], [place] [phone] FOLLOW UP 05/28/2019 Appointment: María Elena Appiahtel: [address] [place], [place] [address] US BP CHECK 05/19/2019 Visit Diagnosis Plan: [...] Z79.890 01/22/2019 Appointment: María Elena Appiahtel: [address] [place], [place] [phone] [place] FOLLOW UP 01/22/2019 Patient Education: estradiol- Opt[employer] Coupon [id number] https://www.[employer]/samplemd/resources/getResource/61/068m293k-4qv4-1b89-5v Completed 01/22/2019 Appointment: María Elena Appiahtel: [address] [place] [address] [place] CANCELED 01/20/2019 Appointment: María Elena Appiah WPtel: [address] [place] [address] US LM NO SHOW 01/06/2019 Appointment: María Elena Appiah WPtel: [address] [place] [address] [place] CANCELED 10/17/2018 Appointment: María Elena Appiah WPtel: [address] [place] [address] US BP CHECK 10/09/2018 Visit Diagnosis Plan: [...] I10 09/30/2018 Appointment: María Elena Appiah WPtel: [address] [place] [address] US FOLLOW UP 09/30/2018 Visit Diagnosis Plan: [...] F51.01 08/27/2018 Appointment: María Elena Appiah WPtel: [address] [place] [address] [place] ACUTE ILLNESS 08/27/2018 Appointment: María Elena Appiah WPtel: [address] [place], [place] [phone] [place] Patient stated she went out to [...] prn. Tyle... 08/09/2018 Appointment: María Elena Appiahtel: [address] [place] [address] ACUTE ILLNESS 08/09/2018 Appointment: María Elena Appiahtel: [address] [place], [place] [phone] NO SHOW 08/08/2018 Visit Diagnosis Plan: Anxiety [...] : B35.4 07/22/2018 Appointment: María Elena Appiahtel: [address] [place], [place] [phone] ACUTE ILLNESS 07/22/2018 Appointment: María Elena Appiahtel: [address] [place], [place] [phone] [place] INJECTION 06/19/2018 Patient Education: Patient Medication [...] : L03.031 06/17/2018 Appointment: Kathleen Zuniga 504 [facility] ACUTE ILLNESS 06/17/2018 Patient Education: Patient Medication [...] : B02.9 05/16/2018 Appointment: Kathleen Zuniga 504 [facility] ACUTE ILLNESS 05/16/2018 Patient Education: Patient Medication [...] : L03.115 03/20/2018 Appointment: Kathleen Zuniga 504 [facility] FOLLOW UP 03/20/2018 Patient Education: Patient Medication [...] : L03.115 03/18/2018 Appointment: Kathleen Zuniga 504 [facility] FOLLOW UP 03/18/2018 Patient Education: Patient Medication [...] : L03.115 03/15/2018 Appointment: Kathleen Zuniga 504 [facility] ACUTE ILLNESS 03/15/2018 Patient Education: Patient Medication [...] : J01.90 02/11/2018 Appointment: Kathleen Zuniga 504 [facility] ACUTE ILLNESS 02/11/2018 Patient Education: Patient Medication Summary Completed 02/11/2018 Appointment: María Elena Appiah WPtel: [phone] [facility] [place] INJECTION 02/01/2018 Patient Education: Patient Medication [...] ICD-10 : M51.16 01/30/2018 Appointment: Kathleen Zuniga [address] [place], [place] [id number] ACUTE ILLNESS 01/30/2018 Patient Education: Patient [...] 12/18/2017 Appointment: María Elena Appiah WPtel: [phone] Annual Well Visit 12/18/2017 Patient Education: Patient Medication Summary Completed 12/18/2017 Care Plan: Referral Order SNOMED-CT : [phone] [id number] Pending 12/18/2017 Appointment: María Elena Appiah WPtel: [phone] INJECTION 12/10/2017 Patient Education: Patient Medication [...] : L03.031 12/07/2017 Appointment: Kathleen Zuniga [address] [place] [address] ACUTE ILLNESS 12/07/2017 Patient Education: Patient Medication [...] : J01.00 10/08/2017 Appointment: Kathleen Zuniga [address] [place] [address] ACUTE ILLNESS 10/08/2017 Patient Education: Patient Medication Summary Completed 10/08/2017 Appointment: María Elena Appiah WPtel: [phone] [id number] [place] INJECTION 09/21/2017 Patient Education: Patient Medication [...] ICD-10 : R06.83 09/20/2017 Appointment: Kathleen Zuniga [address] [place], [place] [id number] ACUTE ILLNESS 09/20/2017 Patient Education: Patient Medication [...] : L60.0 08/29/2017 Appointment: Kathleen Zuniga [address] [place] [address] OFFICE SURGERY 08/29/2017 Patient Education: Patient Medication Summary Completed 08/29/2017 Visit Diagnosis Plan: Actinic keratosis Discussion: Cr yotherapy as above ICD-9 : 702.0 ICD-10 : L57.0 08/01/2017 Appointment: María Elena Appiah WPtel: [address] [place] [address] OFFICE SURGERY 08/01/2017 Patient Education: Patient Medication Summary Completed 08/01/2017 Appointment: María Elena Appiah WPtel: [address] [place] [address] PATIENT THOUGHT APPOINTMENT WAS TOMORROW 07/26/17 CALLED 15 MINUTES BEFORE APPT TO SAY SHE DIDN'T HAVE ANYONE TO COVER HER BUSINESS AND WOULD NOT MAKE IT NO SHOW 07/25/2017 Visit Diagnosis Plan: Cellulitis of left toe Discussio n: Clindamycin and notify if worsening or persistis ICD-9 : 681.10 ICD-10 : L03.032 07/19/2017 Appointment: María Elena Appiah WPtel: [address] [place], [place] [address] MEDICATION REVIEW 07/19/2017 Patient Education: Patient Medication Summary Completed 07/19/2017 Appointment: María Elena Appiah WPtel: [address] [place] [address] [place] CANCELED 07/04/2017 Visit Diagnosis Plan: Generalized hyperhidrosis Discus ian: CBC, CMP, TSH, free T4 ordered to assess. will review labs. ICD-9 : 780.8 ICD-10 : R61 06/27/2017 Visit Diagnosis Plan: Chronic sinusitis, unspecified D iscussion: Referral sent to dr. albarado in [place] per patient request. patient has been treated multiple times for sinus infections with no recovery. patient was seen by dr sanchez in the past with no interventions. patient has deviated septum which may be affecting her sinuses. 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, including hip Discussion: Shave removal of above lesio n--sent to pathology ICD-9 : 216.7 ICD-10 : D23.72 01/24/2017 Appointment: María Elena Appiah WPtel: [address] [place] [address] 01/23 confirmed ~sl OFFICE SURGERY 01/24/2017 Patient Education: Patient Medication Summary Completed 01/24/2017 Appointment: Loan Sánchez [address] [place] [address] 01/09 rescheduled~sl RESCHEDULED 01/15/2017 Visit Diagnosis Plan: [...] L81.4 12/13/2016 Appointment: María Elena Appiah WPtel: [address] [place], [place] [phone] [place] 12/12 confirmed ~ MEDICATION REVIEW 12/13/2016 Patient Education: Patient Medication Summary Completed 12/13/2016 Appointment: María Elena Appiah WPtel: [address] [place], [place] [phone] [place] rescheduled for 12/13/16 at 11am RESCHEDULED 0 12/06/2016 Appointment: María Elena Appiah WPtel: [address] [place], [place] [phone] [place] CANCELED 11/23/2016 Patient Education: Patient Medication [...] F51.01 11/01/2016 Appointment: María Elena Appiah WPtel: [address] [place], [place] [id number] [place] 10/31 lm `sl 11/01 lm`sl MEDICATION REVIEW 017 Patient Education: Patient Medication Summary Completed 11/01/2016 Referral: Canelo Overton WPtel: [phone] [id number] Referral Initiated 10/30/2016 Visit Diagnosis Plan: Encounter [...] Z01.419 10/17/2016 Appointment: María Elena Appiah WPtel: [address] [place], [place] [id number] 10/16 confirmed ~sl PAP 10/17/2016 Patient Education: Patient Medication Summary Completed 10/17/2016 Care Plan: MAMMOGRAM SCREENING LOINC : 2 6347-5 Pending 10/17/2016 Visit Diagnosis Plan: Other seasonal allergic rhinitis Discussion: Decadron/Garamycin Nasal [place] Mix Too soon for steroid Retry zyrtec 10mg daily ICD-9 : 477.9 ICD-10 : J30.2 10/10/2016 Appointment: María Elena Appiah WPtel: [address] [place], [place] [id number] [place] FOLLOW UP 10/10/2016 Patient Education: Patient Medication Summary Completed 10/10/2016 Appointment: María Elena Appiah WPtel: [address] [place], [place] [phone] 10/02 reschedule `sl RESCHEDULED 10/02/2016 Visit Plan: See surgery for removal of n ew left arm lesion and right foot lesion Lyrica to use next month for left arm paresthesias Continue current meds Discussed sunscreen/sunblock combo 09/19/2016 Appointment: María Elena Appiah WPtel: [phone] 09/18 confirmed ~sl FOLLOW UP 09/19/2016 Patient Education: Patient Medication Summary Completed 09/19/2016 Patient Education: Patient Medication Summary Completed 09/18/2016 Care Plan: MAMMOGRAM BOTH BREASTS LOINC : 98102-7 Pending 09/18/2016 Visit Plan: Discussed that needs [...] sinuses 08/24/2016 Appointment: María Elena Appiah WPtel: [address] [place] [address] ACUTE ILLNESS 08/24/2016 Patient Education: Patient Medication Summary Completed 08/24/2016 Patient Education: Patient Medication Summary Completed 08/23/2016 Care Plan: MAMMOGRAM SCREENING LOINC : 2 6347-5 Pending 08/23/2016 Visit Plan: Finish doxycycline Add Breo 100/25 1 p BID for 2 weeks If not improving within next 2 days will get CXR 08/16/2016 Appointment: María Elena Appiahtel: [address] [place] [address] ACUTE ILLNESS 08/16/2016 Patient Education: Patient Medication Summary Completed 08/16/2016 Visit Plan: Supportive care. Rest, Fluid s, Tylenol/Motrin prn fever or bodyaches. Notify if worsening symptoms. Doxycyline and Prednisone 08/10/2016 Appointment: María Elena Appiah WPtel: [facility] [address] 08/09 lm`sl....confirmed-sp FOLLOW UP 09/2015 Patient Education: Patient Medication Summary Completed 08/10/2016 Visit Plan: Saline nasal flushes prn. Ty lenol/Motrin prn headache. Notify if persists/symptoms worsening. Dexamethasone 8mg IM today May use coricedan and mucinex 08/02/2016 Appointment: María Elena Appiah WPtel: [address] [place], [place] [phone] ACUTE ILLNESS 08/02/2016 Patient Education: Patient Medication Summary Completed 08/02/2016 Visit Plan: Cryotherapy as above and lef t forearm lesion removal as above with 5-0 punch biopsy and sent to [facility] Return in 10 days for suture removal 08/01/2016 Appointment: María Elena Appiah WPtel: [address] [place] [address] 07/31 confirmed`~ OFFICE SURGERY 08/01/2016 Patient Education: Patient Medication Summary Completed 08/01/2016 Visit Plan: Stop clindamycin Check CBC, CMP, ESR now/STAT 07/27/2016 Appointment: María Elena Appiah WPtel: [address] [place] [address] ACUTE ILLNESS 07/27/2016 Patient Education: Patient Medication Summary Completed 07/27/2016 Visit Plan: Update lab and check ABIs to start with Will likely need cardiology evaluation to rule out PVD Clindamycin for 10 days Daily yogurt or probiotic Will return for removal of left arm lesions 07/20/2016 Appointment: María Elena Appiah WPtel: [address] [place] [address] ACUTE ILLNESS 07/20/2016 Patient Education: Patient Medication Summary Completed 07/20/2016 Patient Education: Patient Medication Summary Completed 07/20/2016 Care Plan: MAMMOGRAM BOTH BREASTS LOINC : 17738-9 Pending 07/20/2016 Care Plan: US EXAM CHEST LOINC : 50252-1 Pending 07/20/2016 Visit Plan: Wound culture collected from left great toe Appearance is somewhat staph like Rx as above Wound cleanser and skin care reviewed May need to add oral antibiotic if sores do not heal or continue to reoccur 07/06/2016 Appointment: Loan Sánchez [address] [place] [address] ACUTE ILLNESS 07/06/2016 Patient Education: Patient Medication Summary Completed 07/06/2016 Appointment: María Elena Appiah WPtel: [address] [place], [place] [phone] [place] INJECTION 05/25/2016 Patient Education: Patient Medication Summary Completed 05/25/2016 Visit Plan: Saline nasal flushes prn. Ty lenol/Motrin prn headache. Notify if persists/symptoms worsening. Dexamethasone and Rocephin given 04/26/2016 Appointment: María Elena Appiah WPtel: [address] [place] [address] ACUTE ILLNESS 04/26/2016 Patient Education: Patient Medication Summary Completed 04/26/2016 Visit Plan: Check CBC, CMP, TSH, FreeT4, HbA1C, estradiol, lipids in AM 03/02/2016 Appointment: María Elena Appiah WPtel: [address] [place] [address] 03/01 lm~sl ACUTE ILLNESS 03/02/2016 Patient Education: Patient Medication Summary Completed 03/02/2016 Visit Plan: Exam is nearly normal Needs to be taking daily antihistamine Would prefer to use oral steroids instead of shot but patient insist that oral steroids cause horrible headaches for her Will given kenalog IM instead 02/09/2016 Appointment: Loan Sánchez [address] [place] [address] ACUTE ILLNESS 02/09/2016 Patient Education: Patient Medication Summary Completed 02/09/2016 Visit Plan: Culture urine Macrobid DC xa nax Trial of Ativan 1mg q HS 01/24/2016 Appointment: María Elena Appiah WPtel: [address] [place] [address] ACUTE ILLNESS 01/24/2016 Patient Education: Patient Medication Summary Completed 01/24/2016 Visit Plan: No steroid or rocephin injec tion warranted Can have oral prednisone Continue current home regimen Needs to follow up with Dr Sanchez if problems persist 12/23/2015 Appointment: Loan Sánchez [address] [place] [address] ACUTE ILLNESS 12/23/2015 Patient Education: Patient Medication Summary Completed 12/23/2015 Visit Plan: Saline nasal flushes prn. Ty lenol/Motrin prn headache. Notify if persists/symptoms worsening. Kenalog 40mg IM today 12/08/2015 Appointment: María Elena Appiah WPtel: [address] [place], [place] [phone] 12/06 confirmed~sl ACUTE ILLNESS 12/08/2015 Patient Education: Patient Medication Summary Completed 12/08/2015 Appointment: María Elena Appiah WPtel: [address] [place], [place] [phone] ACUTE ILLNESS 11/18/2015 Patient Education: Patient Medication Summary Completed 10/11/2015 Appointment: María Elena Appiah WPtel: [address] [place], [place] [phone] [place] INJECTION 10/07/2015 Patient Education: Patient Medication Summary Completed 10/07/2015 Visit Plan: Check renal arterial doppler s and ECHO Change amlodopine to lotrel 5/20mg q HS Will need stress test as well Check CMP, uric acid, ESR 10/06/2015 Appointment: María Elena Appiah WPtel: [address] [place], [place] [phone] ACUTE ILLNESS 10/06/2015 Patient Education: Patient Medication Summary Completed 10/06/2015 Patient Education: [facility] - [employer] - Amlodipine Besylate - 18-64 - Dynamic Portal ID Completed 10/06/2015 Appointment: María Elena Appiah WPtel: [address] [place], [place] [phone] FOLLOW UP 09/22/2015 Visit Plan: Cephalexin 500 mg PO bid Mery ly topical Mupirocin to lesions on left lateral neck and face Follow-up in one week. Sooner if symptoms worsen 09/14/2015 Appointment: June Flores WPtel: [address] [place] [address] ACUTE ILLNESS 09/14/2015 Patient Education: Patient Medication Summary Completed 09/14/2015 Visit Plan: Change bystolic to bedtime d osing and amlodopine to morning dosing Cryotherapy as above to AKs 09/07/2015 Appointment: María Elena Appiah WPtel: [address] [place], [place] [phone] 09/06 appointment made and confirmed ~sl FOLLOW UP 09/07/2015 Patient Education: Patient Medication Summary Completed 09/07/2015 Visit Plan: Increase bystolic back to 20 mg daily but will split and take 10mg in AM and 10mg in PM Stress Reducers 08/18/2015 Appointment: María Elena Appiah WPtel: [address] [place] [address] 08/17/15 appt confirmed cn ACUTE ILLNESS 08/18 Patient Education: Patient Medication Summary Completed 08/18/2015 Appointment: María Elena Appiah WPtel: [address] [place] [address] BP CHECK 07/07/2015 Patient Education: Patient Medication Summary Completed 07/07/2015 Appointment: María Elena Appiah WPtel: [address] [place] [address] BP CHECK 06/24/2015 Patient Education: Patient Medication Summary Completed 06/24/2015 Appointment: María Elena Appiah WPtel: [address] [place] [address] BP CHECK 06/21/2015 Patient Education: Patient Medication Summary Completed 06/21/2015 Visit Plan: Lab discussed Continue curre nt meds and lifestyle modification Recheck lab in 6mos 06/16/2015 Appointment: María Elena Appiah WPtel: [address] [place] [address] 06/15 confirmed FOLLOW UP 06/16/2015 Patient Education: Patient Medication Summary Completed 06/16/2015 Patient Education: Patient Medication Summary Completed 06/15/2015 Visit Plan: Increase cymbalta to 60mg q HS Keep clonidine at current dose Recheck 2weeks Change xanax to klonopin 06/02/2015 Appointment: María Elena Appiah WPtel: [address] [place], [place] [phone] 06/02 lm FOLLOW UP 06/02/2015 Patient Education: Patient Medication Summary Completed 06/02/2015 Appointment: María Elena Appiah WPtel: [address] [place] [address] ACUTE ILLNESS 05/24/2015 Visit Plan: Increase clonidine to 0.2mg q HS Add cymbalta 30mg q HS Recheck 2weeks Stress Reducers Check fasting lab Discussed sleep study 05/20/2015 Appointment: María Elena Appiah WPtel: [address] [place] [address] ACUTE ILLNESS 05/20/2015 Patient Education: Patient Medication Summary Completed 05/20/2015 Patient Education: [facility] - [employer] - Cymbalta - 18-64 - Dynamic Portal ID Completed 05/20/2015 Appointment: María Elena Appiah WPtel: [address] [place] [address] BP CHECK 05/19/2015 Patient Education: Patient Medication Summary Completed 05/19/2015 Visit Plan: Topical Bactroban alternatin g with topical betamethasone Recheck 2weeks 05/10/2015 Appointment: María Elena Appiah WPtel: [address] [place] [address] 05/07 cn...05/07 appt confirmed OFFICE SURGER Y 05/10/2015 Patient Education: Patient Medication Summary Completed 05/10/2015 Ref[facility]: [facility] [address] Referral Initiated 05/04/2015 Visit Plan: Saline nasal flushes prn. Ty lenol/Motrin prn headache. Notify if persists/symptoms worsening. Depomedrol 40mg IM today 03/16/2015 Appointment: María Elena Appiah WPtel: [address] [place] [address] ACUTE ILLNESS 03/16/2015 Patient Education: Patient Medication Summary Completed 03/16/2015 Appointment: María Elena Appiah WPtel: [address] [place] [address] ER Follow UP 03/09/2015 Visit Plan: Cryotherapy to lesions as ab ove 10/27/2014 Appointment: María Elena Appiah WPtel: [address] [place] [address] OFFICE SURGERY 10/27/2014 Patient Education: Patient Medication Summary Completed 10/27/2014 Appointment: June Flores WPtel: [address] [place] [address] ACUTE ILLNESS 09/11/2014 Patient Education: Patient Medication Summary Completed 09/11/2014 Visit Plan: Lab discussed Lipitor 10mg d aily Coenzyme Q-10 400mg daily Vitamin D3 5000u daily Recheck lipids with LFTs in 3mos then fwup 08/31/2014 Appointment: María Elena Appiah WPtel: [address] [place] [address] 08/28 voicemail FOLLOW UP 08/31/2014 Patient Education: Patient Medication Summary Completed 08/31/2014 Appointment: María Elena Appiah WPtel: [address] [place] [address] [place] LAB 08/27/2014 Appointment: María Elena Appiah WPtel: [address] [place], [place] [phone] [place] LAB 08/27/2014 Patient Education: Patient Medication Summary Completed 08/27/2014 Appointment: María Elena Appiah WPtel: [address] [place], [place] [phone] ACUTE ILLNESS 07/23/2014 Appointment: María Elena Appiah WPtel: [address] [place] [address] ACUTE ILLNESS 07/21/2014 Patient Education: Patient Medication Summary Completed 07/21/2014 Visit Plan: Kenalog 40mg IM today Contin ue narendra and singulair Add Flonase 07/15/2014 Appointment: María Elena Appiah WPtel: [address] [place], [place] [phone] ACUTE ILLNESS 07/15/2014 Appointment: María Elena Appiah WPtel: [address] [place], [place] [phone] ACUTE ILLNESS 07/15/2014 Patient Education: Patient Medication Summary Completed 07/15/2014 Visit Plan: Will do metolazone 2.5mg prn with 6 potassium and see if causes as severe cramping Trial of of seroquel XR 50mg q PM with evening meal and let us know how works 05/18/2014 Appointment: María Elena Appiah WPtel: [address] [place], [place] [phone] 05/15 left message FOLLOW UP 05/18/2014 Patient Education: Patient Medication Summary Completed 05/18/2014 Appointment: María Elena Appiah WPtel: [address] [place], [place] [phone] LAB 05/14/2014 Patient Education: Patient Medication Summary Completed 05/14/2014 Appointment: María Elena Appiah WPtel: [address] [place], [place] [phone] [place] INJECTION 04/22/2014 Visit Plan: Nimco today a nd finish abx given from urgent care 04/21/2014 Appointment: María Elena Appiah WPtel: [address] [place], [place] [phone] [place] INJECTION 04/21/2014 Patient Education: Patient Medication Summary Completed 04/21/2014 Appointment: June Flores WPtel: [address] [place], [place] [phone] ACUTE ILLNESS 03/04/2014 Patient Education: Patient Medication Summary Completed 03/04/2014 Appointment: María Elena Appiah WPtel: [address] [place], [place] [phone] [place] INJECTION 02/27/2014 Patient Education: Patient Medication Summary Completed 02/27/2014 Visit Plan: Cryotherapy as above to all lesions Patient wants to try no meds for insomnia for a while and see how goes 01/13/2014 Appointment: María Elena Appiah WPtel: [address] [place] [address] OFFICE SURGERY 01/13/2014 Patient Education: Patient Medication Summary Completed 01/13/2014 Visit Plan: Stop Melatonin Stop Soma Tri al of trazadone 75mg q HS See ENT for possible tubes as has had chronic ETD and serous otitis media with numerous steroids 12/24/2013 Appointment: María Elena Appiah WPtel: [address] [place] [address] ACUTE ILLNESS 12/24/2013 Patient Education: Patient Medication Summary Completed 12/24/2013 Visit Plan: Saline nasal flushes prn. Ty lenol/Motrin prn headache. Notify if persists/symptoms worsening. 11/12/2013 Appointment: María Elena Appiah WPtel: [address] [place] [address] ACUTE ILLNESS 11/12/2013 Patient Education: Patient Medication Summary Completed 11/12/2013 Appointment: María Elena Appiah WPtel: [address] [place] [address] ACUTE ILLNESS 10/21/2013 Patient Education: Patient Medication Summary Completed 10/21/2013 Visit Plan: Sleep hygiene and sleep rout ine Melatonin 10mg q HS Support stockings and observe 09/22/2013 Appointment: María Elena Appiah WPtel: [address] [place] [address] ACUTE ILLNESS 09/22/2013 Patient Education: Patient Medication Summary Completed 09/22/2013 Appointment: June Flores WPtel: [address] [place] [address] ACUTE ILLNESS 08/27/2013 Patient Education: Patient Medication Summary Completed 08/27/2013 Visit Plan: Proceed with CT scan of head /neck Proceed with occipital nerve injections Butrans 20mcg patch weekly until can get into see Dr. Mcdonough for injections 08/04/2013 Appointment: María Elena Appiah WPtel: [address] [place] [address] FOLLOW UP 08/04/2013 Patient Education: Patient Medication Summary Completed 08/04/2013 Visit Plan: OMT done Daily neck stretche s, moist heat Increase Celebrex to 200mg BID Add flexeril 07/23/2013 Appointment: María Elena Appiah WPtel: [address] [place] [address] 07/22 voicemail FOLLOW UP 07/23/2013 Patient Education: Patient Medication Summary Completed 07/23/2013 Appointment: María Elena Appiah WPtel: [address] [place] [address] ACUTE ILLNESS 06/23/2013 Patient Education: Patient Medication Summary Completed 06/23/2013 Appointment: María Elena Appiah WPtel: [address] [place] [address] ACUTE ILLNESS 05/26/2013 Patient Education: Patient Medication Summary Completed 05/26/2013 Visit Plan: Decrease clonidine to 0.1mg TID If BP remains stable consider decreasing amlodopine Prednisone for 5 days BP check in 1mo 04/16/2013 Appointment: María Elena Appiah WPtel: [address] [place] [address] 04/14 pt called and confirmed appt FOLLOW UP 04/16/2013 Patient Education: Patient Medication Summary Completed 04/16/2013 Appointment: María Elena Appiah WPtel: [address] [place] [address] ACUTE ILLNESS 03/05/2013 Patient Education: Patient Medication Summary Completed 03/05/2013 Visit Plan: Pt has MARIA ELENA on with Dr. Mcdonough Continue Butrans patch Refill Hydrocodone early tomorrow 12/23/2012 Appointment: María Elena Appiah WPtel: [address] [place] [address] FOLLOW UP 12/23/2012 Patient Education: Patient Medication Summary Completed 12/23/2012 Appointment: Lashawn Eckert WPtel: [address] [place] [address] ACUTE ILLNESS 12/16/2012 Patient Education: Patient Medication Summary Completed 12/16/2012 Visit Plan: Proceed with updated MRI of LS spine Continue gabapentin and add soma and diclofenac Will likely need to go for another epidural 12/09/2012 Appointment: María Elena Appiah WPtel: [address] [place] [address] ACUTE ILLNESS 12/09/2012 Patient Education: Patient Medication Summary Completed 12/09/2012 Visit Plan: Injection as above Finish me drol dose pack Chiropracter this afternoon 12/04/2012 Appointment: María Elena Appiah WPtel: [address] [place] [address] ACUTE ILLNESS 12/04/2012 Patient Education: Patient Medication Summary Completed 12/04/2012 Appointment: Mary Tillman WPtel: [address] [place] [address] FOLLOW UP 11/22/2012 Patient Education: Patient Medication Summary Completed 11/22/2012 Appointment: María Elena Appiah WPtel: [address] [place] [address] ACUTE ILLNESS 11/21/2012 Patient Education: Patient Medication Summary Completed 11/21/2012 Appointment: María Elena Appiah WPtel: [address] [place] [address] BP CHECK 11/07/2012 Patient Education: Patient Medication [...] BP re-check. 10/29/2012 Appointment: Lashawn Eckert WPtel: [address] [place] [address] ACUTE ILLNESS 10/29/2012 Patient Education: Patient Medication Summary Completed 10/29/2012 Appointment: María Elena Appiah WPtel: [address] [place], [place] [phone] ACUTE ILLNESS 10/14/2012 Patient Education: Patient Medication Summary Completed 10/14/2012 Appointment: María Elena Appiah WPtel: [address] [place] [address] UA 09/27/2012 Patient Education: Patient Medication Summary Completed 09/27/2012 Appointment: María Elena Appiah WPtel: [address] [place] [address] ACUTE ILLNESS 09/25/2012 Patient Education: Patient Medication Summary Completed 09/25/2012 Appointment: María Elena Appiah WPtel: [address] [place] [address] BP CHECK 09/24/2012 Appointment: María Elena Appiah WPtel: [address] [place] [address] ACUTE ILLNESS 08/29/2012 Patient Education: Patient Medication Summary Completed 08/29/2012 Visit Plan: Cryotherapy as above See Karlos m for right ear lesion--probable MOHs procedure Increase amlodopine to 10mg daily 08/12/2012 Appointment: María Elena Appiah WPtel: [address] [place], [place] [phone] OFFICE SURGERY 08/12/2012 Patient Education: Patient Medication Summary Completed 08/12/2012 Appointment: María Elena Appiah WPtel: [address] [place], [place] [phone] 05/03 vm on pt phone...pt called on 04/11 3 pt called wanting in had no one cancel so could not get her in for an appt sooner than 05/06. ACUTE ILLNESS 05/06/2012 Patient Education: Patient Medication Summary Completed 05/06/2012 Visit Plan: Pt wants to hold on any furt her sleep medications 04/03/2012 Appointment: María Elena Appiahtel: [address] [place] [address] FOLLOW UP 04/03/2012 Patient Education: Patient Medication Summary Completed 04/03/2012 Appointment: María Elena Appiah WPtel: [address] [place] [address] FOLLOW UP 03/19/2012 Patient Education: Patient Medication Summary Completed 03/19/2012 Appointment: María Elena Appiahtel: [address] [place] [address] BP CHECK 02/22/2012 Patient Education: Patient Medication Summary Completed 02/22/2012 Appointment: María Elena Appiah WPtel: [address] [place] [address] BP CHECK 02/21/2012 Patient Education: Patient Medication Summary Completed 02/21/2012 Visit Plan: Doxycycline and bactroban fo r foot Supportive care on ankles and knees Add norvasc for BP 02/20/2012 Appointment: María Elena Appiahtel: [address] [place] [address] ER Follow UP 02/20/2012 Patient Education: Patient Medication Summary Completed 02/20/2012 Appointment: María Elena Appiahtel: [address] [place] [address] ACUTE ILLNESS 01/30/2012 Patient Education: Patient Medication Summary Completed 01/30/2012 Appointment: María Elena Appiahtel: [address] [place] [address] ACUTE ILLNESS 01/24/2012 Patient Education: Patient Medication Summary Completed 01/24/2012 Visit Plan: Daily back stretches, moist heat, Biofreeze prn OMT done 01/10/2012 Appointment: María Elena Appiah WPtel: [address] [place] [address] ACUTE ILLNESS 01/10/2012 Patient Education: Patient Medication Summary Completed 01/10/2012 Appointment: María Elena Appiah WPtel: [address] [place] [address] FOLLOW UP 12/11/2011 Patient Education: Patient Medication Summary Completed 12/11/2011 Appointment: María Elena Appiah WPtel: [address] [place] [address] ACUTE ILLNESS 11/09/2011 Patient Education: Patient Medication Summary Completed 11/09/2011 Appointment: María Elena Appiah WPtel: [address] [place] [address] ACUTE ILLNESS 09/13/2011 Patient Education: Patient Medication Summary Completed 09/13/2011 Visit Plan: Check CBC, TSH, Free T4, CMP , ESR, Vit D, B12 now Start Prednisone today 08/31/2011 Appointment: María Elena Appiah WPtel: [address] [place] [address] ACUTE ILLNESS 08/31/2011 Patient Education: Patient Medication Summary Completed 08/31/2011 Appointment: María Elena Appiah WPtel: [address] [place] [address] [place] INJECTION 07/20/2011 Patient Education: Patient Medication Summary Completed 07/20/2011 Visit Plan: Continue current meds Monite r BP Cont stretches from PT 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 07/06/2011 Appointment: María Elena Appiahtel: [address] [place] [address] FOLLOW UP 07/06/2011 Patient Education: Patient Medication Summary Completed 07/06/2011 Appointment: María Elena Appiah WPtel: [address] [place] [address] BP CHECK 06/06/2011 Patient Education: Patient Medication Summary Completed 06/06/2011 Visit Plan: Add Bystolic at 2.5mg QAM Ad d Robaxin 750mg 2 po q HS BP check in 2wks 05/22/2011 Appointment: María Elena Appiah WPtel: [address] [place], [place] [phone] FOLLOW UP 05/22/2011 Patient Education: Patient Medication Summary Completed 05/22/2011 Appointment: María Elena Appiah WPtel: [address] [place], [place] [phone] ER Follow UP 05/09/2011 Patient Education: Patient Medication Summary Completed 05/09/2011 Appointment: María Elena Appiah WPtel: [address] [place], [place] [phone] FOLLOW UP 02/22/2011 Visit Plan: Rx written for Hydrocodone 1 0/325mg #240 See Ortho 02/14/2011 Appointment: María Elena Appiah WPtel: [address] [place] [address] OMT 02/14/2011 Patient Education: Patient Medication Summary [...] work. 02/03/2011 Appointment: Lashawn Eckert WPtel: [address] [place], [place] [phone] ACUTE ILLNESS 02/03/2011 Patient Education: Patient Medication Summary Completed 02/03/2011 Visit Plan: OMT done Cont daily stretche s 01/31/2011 Appointment: María Elena Appiah WPtel: [address] [place] [address] ACUTE ILLNESS 01/31/2011 Patient Education: Patient Medication Summary Completed 01/31/2011 Visit Plan: Continue pain meds OMT done Proceed with PT No work this summer01/25/2011 Appointment: María Elena Appiah WPtel: [address] [place] [address] ACUTE ILLNESS 01/25/2011 Patient Education: Patient Medication Summary Completed 01/25/2011 Visit Plan: Start PT Long discussion abo ut getting pain meds from only and can only have max of 4grams of tylenol per day Change to Hydrocodone 10/325mg 1- 2 po TID prn pain--#180 called to [facility] 01/18/2011 Appointment: María Elena Appiah WPtel: [address] [place] [address] FOLLOW UP 01/18/2011 Patient Education: Patient Medication Summary Completed 01/18/2011 Visit Plan: Daily back stretches, moist heat, Biofreeze prn 11/29/2010 Appointment: María Elena Appiah WPtel: [address] [place] [address] ER Follow UP 11/29/2010 Patient Education: Patient Medication Summary Completed 11/29/2010 Visit Plan: Saline nasal flushes prn. Ty lenol/Motrin prn headache. Notify if persists/symptoms worsening. Finish augmentin Add Medrol Dose Pack 10/10/2010 Appointment: María Elena Appiah WPtel: [address] [place] [address] ACUTE ILLNESS 10/10/2010 Patient Education: Patient Medication Summary Completed 10/10/2010 Visit Plan: Cryotherapy x3 to multiple l esions on both forearms 07/19/2010 Appointment: María Elena Appiah WPtel: [address] [place], [place] [address] US OFFICE SURGERY 07/19/2010 Patient Education: Patient Medication Summary Completed 07/19/2010 Appointment: María Elena Appiah WPtel: [address] [place] [address] BP CHECK 07/06/2010 Patient Education: Patient Medication Summary Completed 07/06/2010 Appointment: María Elena Appiah WPtel: [address] [place] [address] BP CHECK 06/30/2010 Patient Education: Patient Medication Summary Completed 06/30/2010 Appointment: María Elena Appiah WPtel: [address] [place] [address] BP CHECK 06/20/2010 Patient Education: Patient Medication Summary Completed 06/20/2010 Visit Plan: Change Diovan to Exforge 160 /5mg QD OMT done to thoracics BP check in 2wks 06/07/2010 Appointment: María Elena Appiah WPtel: [address] [place] [address] FOLLOW UP 06/07/2010 Patient Education: Patient Medication Summary Completed 06/07/2010 Appointment: María Elena Appiahtel: [address] [place] [address] BP CHECK 06/03/2010 Patient Education: Patient Medication Summary Completed 06/03/2010 Appointment: María Elena Appiah WPtel: [address] [place] [address] BP CHECK 06/01/2010 Patient Education: Patient Medication Summary Completed 06/01/2010 Visit Plan: Irritated skin tags to left neck x2 excised at base with scissors and base cauterized 05/30/2010 Appointment: María Elena Appiah WPtel: [address] [place] [address] OFFICE SURGERY 05/30/2010 Patient Education: Patient Medication Summary Completed 05/30/2010 Visit Plan: Saline nasal flushes prn. Ty lenol/Motrin prn headache. Notify if persists/symptoms worsening. Restart Nasonex Has allergy testing set for May 25 04/27/2010 Appointment: María Elena Appiahtel: [address] [place] [address] ACUTE ILLNESS 04/27/2010 Patient Education: Patient Medication Summary Completed 04/27/2010 Visit Plan: Saline nasal flushes prn. Ty lenol/Motrin prn headache. Notify if persists/symptoms worsening. Omnaris BID plus injections 04/05/2010 Appointment: María Elena Appiahtel: [address] [place] [address] ACUTE ILLNESS 04/05/2010 Patient Education: Patient Medication Summary Completed 04/05/2010 Visit Plan: Saline nasal flushes prn. Ty lenol/Motrin prn headache. Notify if persists/symptoms worsening. 03/09/2010 Appointment: María Elena Appiah WPtel: [address] [place] [address] ACUTE ILLNESS 03/09/2010 Patient Education: Patient Medication Summary Completed 03/09/2010 Visit Plan: Cont Clonidine as is Cont Pr emarin Fwup with surgery as scheduled 03/03/2010 Appointment: María Elena Appiahtel: [address] [place] [address] FOLLOW UP 03/03/2010 Patient Education: Patient Medication Summary Completed 03/03/2010 Visit Plan: Check Pelvic US now Discusse d Dand C vs Hysterectomy 01/17/2010 Appointment: María Elena Appiahtel: [address] [place] [address] ACUTE ILLNESS 01/17/2010 Patient Education: Patient Medication Summary Completed 01/17/2010 Visit Plan: Check fasting lab and schedu le Mammogram 2gm Na Diet Trial of Ambien 10mg qhs Fwup pending lab results 12/27/2009 Appointment: María Elena Appiahtel: [address] [place] [address] ESTABLISHED PATIENT 12/27/2009 Patient Education: Patient Medication Summary Completed 12/27/2009 Referral: Tian Canelo Pollardan WPtel: [address] [id number] [place] Referral Initiated Referral: Philipp Flores WPtel: [address] [id number] [place] Referral Appointment Requested Instructions Comment . [...]
--- OUTSIDE RECORDS SUMMARY | 2020-03-13 06:19 | XMS REPORT | CCD ---
Author Author Gale Appiah D.O. Organization [facility] Address [address] [place] [phone] Phone Care Team Providers Care Billing Specialist Name Role Phone María Elena Appiah D.O., PP Unavailable CCM Unavailable Summary Purpose Interface Exchange Insurance Providers Payer name Policy type / Coverage type Covered green party ID Effective Begin Date Effective End Date [facility] Commercial Insurance [id number] Unknown Family History Family History data not found Social History Social History Element Codes Description Effective Dates Tobacco history SNOMED CT: 847459934 Never smoker 05/22/2011 Allergies, Adverse Reactions, Alerts [...] Fill Instructions Keflex 500 mg capsule RxNorm: 608177 1 Capsule(s) Oral two time s a day 10/07/2019 10/14/2019 Active Premarin 1.25 mg tablet RxNorm: 561996 1 Tablet(s) Oral QD 09/30/1906/25/2020 Active hydrocodone 10 mg-acetaminophen 325 mg tablet RxNorm: 772662 1-2 Tablet(s) Oral three times a day as needed for pain 09/30/2019 09/30/2019 Inactive gabapentin 300 mg capsule RxNorm: 744727 TAKE ONE CAPSU LE BY MOUTH EVERY NIGHT AT BEDTIME 09/19/2019 No Stop Date Active baclofen 10 mg tablet RxNorm: 527046 TAKE ONE TABLET BY MOUTH THREE TIMES A DAY NEEDED 09/19/2019 No Stop Date Active Klor-Con 8 mEq tablet,extended release RxNorm: 147074 T FARRUKH ONE TABLET BY MOUTH TWICE A DAY 1 Tablet(s) Oral two times a day 09/19/2019 10/19/2019 Act darion hydrocodone 10 mg-acetaminophen 325 mg tablet RxNorm: 161303 1-2 Tablet(s) Oral three times a day as needed for pain 09/19/2019 09/29/2019 Inactive duloxetine 60 mg capsule,delayed release RxNorm: 869325 TAKE ONE CAPSULE BY MOUTH DAILY 09/11/2019 No Stop Date Active Lipitor 10 mg tablet RxNorm: 580783 TAKE ONE TABLET BY MOUTH AT BEDTIME 09/11/2019 No Stop Date Active lisinopril 20 mg tablet RxNorm: 795568 TAKE ONE TABLET BY MOUTH DAILY .... THIS REPLACE 10MG TABLETS 09/11/2019 No Stop Date Active triamterene 75 mg-hydrochlorothiazide 50 mg tablet RxNorm: 3 64138 TAKE ONE TABLET BY MOUTH DAILY 09/11/2019 No Stop Date Active allopurinol 300 mg tablet RxNorm: 633140 TAKE ONE TABLET BY LOPEZ TH DAILY 09/11/2019 No Stop Date Active celecoxib 200 mg capsule RxNorm: 365345 TAKE ONE CAPSUL E BY MOUTH TWICE A DAY NEEDED FOR PAIN 09/11/2019 No Stop Date Active clonidine HCl 0.1 mg tablet RxNorm: 783926 TAKE ONE TAB LET BY MOUTH FOUR TIMES A DAY 09/11/2019 No Stop Date Active doxepin 25 mg capsule RxNorm: 4983087 1 Capsule(s) Oral every night at bedtime as needed for sleep 08/21/2019 11/18/2019 Active hydrocodone 10 mg-acetaminophen 325 mg tablet RxNorm: 744615 1-2 Tablet(s) PO TID 08/12/2019 09/29/2019 Inactive as needed for pa in - Previous quantity #240, will start dosing for #180 in April 2011 per Doctor Td. Medrol (Dustin) 4 mg tablets in a dose pack RxNorm: 182380 Tablet(s) Oral As Directed 07/21/2019 09/29/2019 Inactive Premarin 1.25 mg tablet RxNorm: 749700 1 Tablet(s) Oral QD 07/02/20 19 09/29/2019 Inactive hydrocodone 10 mg-acetaminophen 325 mg tablet RxNorm: 382482 1-2 Tablet(s) PO TID 07/01/2019 08/11/2019 Inactive as needed for pa in - Previous quantity #240, will start dosing for #180 in April 2011 per Doctor Td. gabapentin 300 mg capsule RxNorm: 247307 1 Capsule(s) PO QHS 201809/18/2019 Inactive celecoxib 200 mg capsule RxNorm: 899251 1 Capsule(s) Or al two times a day as needed for pain 06/27/2019 06/27/2019 Inactive Singulair 10 mg tablet RxNorm: 123829 TAKE ONE TABLET BY MOUTH JOSÉ Y 06/24/2019 No Stop Date Active furosemide 40 mg tablet RxNorm: 039377 TAKE ONE TABLET BY MOUTH EVERY MORNING NEEDED FOR EDEMA . TAKE WITH POTASSIUM 06/24/2019 No Stop Date Active doxepin 25 mg capsule RxNorm: 9600298 TAKE ONE CAPSULE B Y MOUTH EVERY NIGHT AT BEDTIME NEEDED FOR SLEEP 06/24/2019 08/20/2019 Inactive lisinopril 20 mg tablet RxNorm: 913301 TAKE ONE TABLET BY MOUTH DAILY .... THIS REPLACE 10MG TABLETS 06/24/2019 09/10/2019 Inactive nystatin-triamcinolone 100,000 unit/g-0.1 % topical cream Rx Norm: 8294965 1 Application Topical two times a day 06/12/2019 06/19/2019 Inactive apply BID for 1 week nystatin-triamcinolone 100,000 unit/g-0.1 % topical cream Rx Norm: 5801834 1 Application Topical two times a day 06/12/2019 06/11/2019 Inactive apply BID for 1 week hydrocodone 10 mg-acetaminophen 325 mg tablet RxNorm: 749506 1-2 Tablet(s) PO QID as needed for pain MUST LAST 30 DAYS 05/28/2019 06/26/2019 Inactiv e (Response to an electronic controlled substance refill request - RxReferenceNumber: [id number]) baclofen 20 mg tablet RxNorm: 768006 1 Tablet(s) PO TID as needed for muscle spasm 05/19/2019 05/27/2019 Inactive gabapentin 300 mg capsule RxNorm: 908804 1 Capsule(s) PO QHS 201805/27/2019 Inactive lisinopril 20 mg tablet RxNorm: 229086 1 Tablet(s) PO Q D TAKE ONE TABLET BY MOUTH DAILY, REPLACES 10 MG DOSE 05/19/2019 06/23/2019 Inactive doxepin 25 mg capsule RxNorm: 0074360 TAKE ONE CAPSULE B Y MOUTH EVERY NIGHT AT BEDTIME NEEDED FOR SLEEP 05/16/2019 06/14/2019 Inactive lisinopril 20 mg tablet RxNorm: 506513 TAKE ONE TABLET BY MOUTH DAILY, REPLACES 10 MG DOSE 05/16/2019 05/18/2019 Inactive Singulair 10 mg tablet RxNorm: 070215 TAKE ONE TABLET BY MOUTH JOSÉ Y 05/16/2019 06/14/2019 Inactive gabapentin 300 mg capsule RxNorm: 083334 1 Capsule(s) PO QHS 201805/04/2019 Inactive estropipate 1.5 mg tablet RxNorm: 272198 1 Tablet(s) PO QD 05/05/20 19 05/27/2019 Inactive estropipate 1.5 mg tablet RxNorm: 968853 1 Tablet(s) PO QD 05/05/20 19 05/04/2019 Inactive gabapentin 300 mg capsule RxNorm: 912796 1 Capsule(s) PO QHS 201805/18/2019 Inactive hydrocodone 10 mg-acetaminophen 325 mg tablet RxNorm: 724975 1-2 Tablet(s) PO QID as needed for pain MUST LAST 30 DAYS 04/25/2019 05/24/2019 Inactiv e (Response to an electronic controlled substance refill request - RxReferenceNumber: [id number]) metoprolol tartrate 100 mg tablet RxNorm: 022200 TAKE O NE TABLET BY MOUTH TWICE A DAY 04/24/2019 06/22/2019 Inactive cyclobenzaprine 10 mg tablet RxNorm: 221022 TAKE ONE TA BLET BY MOUTH THREE TIMES A DAY NEEDED FOR MUSCLE SPASMS 04/24/2019 05/18/2019 Inactive Lyrica 75 mg capsule RxNorm: 543497 1 Capsule(s) PO QHS 03/25/2019 Inactive duloxetine 60 mg capsule,delayed release RxNorm: 057698 TAKE ONE CAPSULE BY MOUTH DAILY 03/21/2019 05/19/2019 Inactive triamterene 75 mg-hydrochlorothiazide 50 mg tablet RxNorm: 3 02581 TAKE ONE TABLET BY MOUTH DAILY 03/21/2019 05/19/2019 Inactive Klor-Con 8 mEq tablet,extended release RxNorm: 805846 T FARRUKH ONE TABLET BY MOUTH TWICE A DAY 03/21/2019 09/18/2019 Inactive Lipitor 10 mg tablet RxNorm: 995969 TAKE ONE TABLET BY MOUTH AT BEDTIME 03/21/2019 09/10/2019 Inactive clonidine HCl 0.1 mg tablet RxNorm: 186908 TAKE ONE TAB LET BY MOUTH FOUR TIMES A DAY 03/21/2019 05/19/2019 Inactive allopurinol 300 mg tablet RxNorm: 150642 TAKE ONE TABLET BY LOEPZ TH DAILY 03/21/2019 05/19/2019 Inactive hydrocodone 10 mg-acetaminophen 325 mg tablet RxNorm: 434351 1-2 Tablet(s) PO QID as needed for pain MUST LAST 30 DAYS 02/28/2019 03/29/2019 Inactiv e (Response to an electronic controlled substance refill request - [facility]: [id number]) furosemide 40 mg tablet RxNorm: 287361 TAKE ONE TABLET BY MOUTH EVERY MORNING NEEDED FOR EDEMA . TAKE WITH POTASSIUM 02/21/2019 03/22/2019 Inactive cyclobenzaprine 10 mg tablet RxNorm: 764496 TAKE ONE TA BLET BY MOUTH THREE TIMES A DAY NEEDED FOR MUSCLE SPASMS 02/21/2019 04/21/2019 Inactive lisinopril 20 mg tablet RxNorm: 821039 TAKE ONE TABLET BY MOUTH DAILY, REPLACES 10 MG DOSE 02/21/2019 05/15/2019 Inactive doxepin 25 mg capsule RxNorm: 7894489 TAKE ONE CAPSULE B Y MOUTH EVERY NIGHT AT BEDTIME NEEDED FOR SLEEP 02/21/2019 05/15/2019 Inactive nystatin 100,000 unit/gram topical cream RxNorm: 399055 APPLY TO AFFECTED AREA(S) TWO TIMES A DAY 02/21/2019 03/22/2019 Inactive estradiol 1 mg tablet RxNorm: 599815 2 Tablet(s) PO QD replaces premarin 01/22/2019 05/04/2019 Inactive lisinopril 20 mg tablet RxNorm: 400356 TAKE ONE TABLET BY MOUTH DAILY, REPLACES 10 MG DOSE 01/20/2019 02/18/2019 Inactive cyclobenzaprine 10 mg tablet RxNorm: 885429 TAKE ONE TA BLET BY MOUTH THREE TIMES A DAY NEEDED FOR MUSCLE SPASMS 01/20/2019 02/18/2019 Inactive metoprolol tartrate 100 mg tablet RxNorm: 039649 TAKE O NE TABLET BY MOUTH TWICE A DAY 01/20/2019 02/18/2019 Inactive cyclobenzaprine 10 mg tablet RxNorm: 026579 TAKE ONE TA BLET BY MOUTH THREE TIMES A DAY NEEDED FOR MUSCLE SPASMS 12/19/2018 01/17/2019 Inactive lisinopril 20 mg tablet RxNorm: 508315 TAKE ONE TABLET BY MOUTH DAILY, REPLACES 10 MG DOSE 12/19/2018 01/17/2019 Inactive duloxetine 60 mg capsule,delayed release RxNorm: 889098 TAKE ONE CAPSULE BY MOUTH DAILY 12/19/2018 01/17/2019 Inactive Lipitor 10 mg tablet RxNorm: 889073 TAKE ONE TABLET BY MOUTH AT BEDTIME 12/19/2018 01/17/2019 Inactive cyclobenzaprine 10 mg tablet RxNorm: 372340 1 Tablet(s) PO TID as needed for muscle spasm 11/19/2018 12/18/2018 Inactive Singulair 10 mg tablet RxNorm: 042452 1 Tablet(s) PO QD 11/19/2018 Inactive lisinopril 20 mg tablet RxNorm: 373595 TAKE ONE TABLET BY MOUTH DAILY, REPLACES 10 MG DOSE 11/15/2018 12/18/2018 Inactive hydrocodone 10 mg-acetaminophen 325 mg tablet RxNorm: 775574 1-2 Tablet(s) PO QID as needed for pain MUST LAST 30 DAYS 11/13/2018 12/12/2018 Inactiv e (Response to an electronic controlled substance refill request - RxReferenceNumber: [id number]) nystatin 100,000 unit/gram topical cream RxNorm: 334862 APPLY TO AFFECTED AREA(S) TWO TIMES A DAY 10/23/2018 11/06/2018 Inactive lisinopril 20 mg tablet RxNorm: 394682 1 Tablet(s) PO QD replac es 10mg dose 10/18/2018 11/14/2018 Inactive hydrocodone 10 mg-acetaminophen 325 mg tablet RxNorm: 270712 1-2 Tablet(s) QID as needed for pain MUST LAST 30 DAYS 10/08/2018 11/06/2018 Inactive (Response to an electronic controlled substance refill request - RxReferenceNumber: [id number]) lisinopril 10 mg tablet RxNorm: 648758 1 Tablet(s) PO QD 10/03/2018 0 01/21/2019 Inactive Celebrex 200 mg capsule RxNorm: 557673 TAKE ONE CAPSULE BY MOUT H TWICE A DAY 09/30/2018 05/04/2019 Inactive cyclobenzaprine 10 mg tablet RxNorm: 278178 TAKE ONE TA BLET BY MOUTH THREE TIMES A DAY NEEDED FOR MUSCLE SPASMS 09/30/2018 11/18/2018 Inactive doxepin 25 mg capsule RxNorm: 7548011 TAKE ONE CAPSULE B Y MOUTH EVERY NIGHT AT BEDTIME NEEDED 09/05/2018 10/16/2018 Inactive omeprazole 40 mg capsule,delayed release RxNorm: 501042 TAKE ONE CAPSULE BY MOUTH DAILY 09/05/2018 01/21/2019 Inactive furosemide 40 mg tablet RxNorm: 728290 TAKE ONE TABLET BY MOUTH EVERY MORNING NEEDED FOR EDEMA . TAKE WITH POTASSIUM 09/05/2018 11/03/2018 Inactive phentermine 37.5 mg tablet RxNorm: 830993 1 Tablet(s) PO QAM 201701/21/2019 Inactive doxepin 25 mg capsule RxNorm: 4217716 1 Capsule(s) PO QH S as needed for sleep TAKE ONE CAPSULE BY MOUTH EVERY NIGHT AT BEDTIME NEEDED 08/27/2018 09/04/2018 Inactive Keflex 500 mg capsule RxNorm: 994263 1 Capsule(s) PO TID 08/09/2018 1 10/19/2017 Inactive Diflucan 100 mg tablet RxNorm: 160686 1 Tablet(s) PO QD 08/09/2018 Inactive Premarin 1.25 mg tablet RxNorm: 520939 2 Tablet(s) PO QD 08/09/2018 0 05/04/2019 Inactive Zofran ODT 4 mg disintegrating tablet RxNorm: 953866 1 Tablet(s) PO Q4H as needed for nausea 08/09/2018 01/21/2019 Inactive metoprolol tartrate 100 mg tablet RxNorm: 875195 TAKE O NE TABLET BY MOUTH TWICE A DAY 2018 10/04/2018 Inactive doxepin 25 mg capsule RxNorm: 1482714 TAKE ONE CAPSULE B Y MOUTH EVERY NIGHT AT BEDTIME NEEDED 2018 08/26/2018 Inactive cyclobenzaprine 10 mg tablet RxNorm: 311984 TAKE ONE TA BLET BY MOUTH THREE TIMES A DAY NEEDED FOR MUSCLE SPASMS 2018 09/29/2018 Inactive hydrocodone 10 mg-acetaminophen 325 mg tablet RxNorm: 184082 1-2 Tablet(s) QID as needed for pain MUST LAST 30 DAYS 07/29/2018 08/27/2018 Inactive (Response to an electronic controlled substance refill request - RxReferenceNumber: [id number]) nystatin 100,000 unit/gram topical powder RxNorm: 919731 Applic ation TOP BID 07/22/2018 08/04/2018 Inactive doxepin 25 mg capsule RxNorm: 8602397 1 Capsule(s) PO QHS as needed 07/22/2018 08/05/2018 Inactive triamterene 75 mg-hydrochlorothiazide 50 mg tablet RxNorm: 3 28749 TAKE ONE TABLET BY MOUTH DAILY 07/05/2018 10/02/2018 Inactive duloxetine 60 mg capsule,delayed release RxNorm: 016702 TAKE ONE CAPSULE BY MOUTH DAILY 07/05/2018 09/02/2018 Inactive Klor-Con 8 mEq tablet,extended release RxNorm: 445428 T FARRUKH ONE TABLET BY MOUTH TWICE A DAY 07/05/2018 10/02/2018 Inactive Lipitor 10 mg tablet RxNorm: 296501 TAKE ONE TABLET BY MOUTH AT BEDTIME 07/05/2018 09/02/2018 Inactive allopurinol 300 mg tablet RxNorm: 823826 TAKE ONE TABLET BY LOPEZ TH DAILY 07/05/2018 10/02/2018 Inactive clonidine HCl 0.1 mg tablet RxNorm: 316158 TAKE ONE TAB LET BY MOUTH FOUR TIMES A DAY 07/05/2018 10/02/2018 Inactive hydrocodone 10 mg-acetaminophen 325 mg tablet RxNorm: 769008 1-2 Tablet(s) QID as needed for pain MUST LAST 30 DAYS 06/28/2018 07/27/2018 Inactive (Response to an electronic controlled substance refill request - RxReferenceNumber: [id number]) MediHoney (calcium alginate-honey) 4" X 5" bandage RxNorm: 1 Application TOP QD 06/17/2018 06/26/2018 Inactive honey-hydrocolloid dressing 4" X 5" RxNorm: 1 Application TOP QD 06/17/2018 07/16/2018 Inactive furosemide 40 mg tablet RxNorm: 906212 TAKE ONE TABLET BY MOUTH EVERY MORNING NEEDED FOR EDEMA . TAKE WITH POTASSIUM 06/10/2018 07/09/2018 Inactive This is a refill request. hydrocodone 10 mg-acetaminophen 325 mg tablet RxNorm: 138340 1-2 Tablet(s) QID as needed for pain MUST LAST 30 DAYS 05/30/2018 06/27/2018 Inactive (Response to an electronic controlled substance refill request - RxReferenceNumber: [id number]) acyclovir 800 mg tablet RxNorm: 327209 1 Tablet(s) PO 5x day 201705/22/2018 Inactive Premarin 1.25 mg tablet RxNorm: 419095 1-2 Tablet(s) PO QD 05/15/20 18 07/13/2018 Inactive cyclobenzaprine 10 mg tablet RxNorm: 637831 1 Tablet(s) PO TID as needed for muscle spasm 05/09/2018 05/08/2018 Inactive Medrol (Dustin) 4 mg tablets in a dose pack RxNorm: 670563 Tablet(s) PO As Directed 05/02/2018 06/16/2018 Inactive hydrocodone 10 mg-acetaminophen 325 mg tablet RxNorm: 554012 1-2 Tablet(s) QID as needed for pain MUST LAST 30 DAYS 04/30/2018 05/29/2018 Inactive (Response to an electronic controlled substance refill request - RxReferenceNumber: [id number]) duloxetine 60 mg capsule,delayed release RxNorm: 415379 TAKE ONE CAPSULE BY MOUTH DAILY 04/16/2018 05/15/2018 Inactive Celebrex 200 mg capsule RxNorm: 083248 TAKE ONE CAPSULE BY MOUT H TWICE A DAY 04/16/2018 06/14/2018 Inactive Singulair 10 mg tablet RxNorm: 131455 TAKE ONE TABLET BY MOUTH JOSÉ Y 04/16/2018 11/19/2018 Inactive Lipitor 10 mg tablet RxNorm: 068463 TAKE ONE TABLET BY MOUTH AT BEDTIME 04/16/2018 05/15/2018 Inactive hydrocodone 10 mg-acetaminophen 325 mg tablet RxNorm: 238367 1-2 Tablet(s) QID as needed for pain MUST LAST 30 DAYS 03/29/2018 04/27/2018 Inactive (Response to an electronic controlled substance refill request - RxReferenceNumber: [id number]) cyclobenzaprine 10 mg tablet RxNorm: 766989 1 Tablet(s) PO TID as needed for muscle spasm 03/18/2018 05/09/2018 Inactive omeprazole 40 mg capsule,delayed release RxNorm: 888387 1 Capsu le(s) PO QD 02/26/2018 08/24/2018 Inactive hydrocodone 10 mg-acetaminophen 325 mg tablet RxNorm: 538219 1-2 Tablet(s) QID as needed for pain MUST LAST 30 DAYS 02/26/2018 03/27/2018 Inactive (Response to an electronic controlled substance refill request - RxReferenceNumber: [id number]) metoprolol tartrate 100 mg tablet RxNorm: 846819 1 Tablet(s) PO BID 02/18/2018 08/05/2018 Inactive Lyrica 75 mg capsule RxNorm: 985762 1 Capsule(s) PO QHS 01/30/2018 Inactive phentermine 37.5 mg tablet RxNorm: 385584 1 Tablet(s) PO QAM 201706/16/2018 Inactive hydrocodone 10 mg-acetaminophen 325 mg tablet RxNorm: 366837 1-2 Tablet(s) QID as needed for pain MUST LAST 30 DAYS 01/29/2018 02/25/2018 Inactive (Response to an electronic controlled substance refill request - RxReferenceNumber: [id number]) Klor-Con 8 mEq tablet,extended release RxNorm: 515927 1 Tablet( s) PO BID 01/14/2018 07/04/2018 Inactive allopurinol 300 mg tablet RxNorm: 707973 1 Tablet(s) PO QD 01/15/2007/04/2018 Inactive Lipitor 10 mg tablet RxNorm: 188542 1 Tablet(s) PO QHS 01/14/201812/2017 Inactive triamterene 75 mg-hydrochlorothiazide 50 mg tablet RxNorm: 3 69888 1 Tablet(s) PO QD 01/14/2018 07/04/2018 Inactive hydrocodone 10 mg-acetaminophen 325 mg tablet RxNorm: 961379 1-2 Tablet(s) QID as needed for pain MUST LAST 30 DAYS 12/27/2017 01/25/2018 Inactive (Response to an electronic controlled substance refill request - RxReferenceNumber: [id number]) Onglyza 5 mg tablet RxNorm: 993234 1 Tablet(s) PO QD 12/18/201701/29 Inactive metformin 500 mg tablet RxNorm: 265816 1 Tablet(s) PO BID 12/11/2017 12/10/2017 Inactive metformin 500 mg tablet RxNorm: 120182 1 Tablet(s) PO BID 12/11/2017 12/17/2017 Inactive furosemide 40 mg tablet RxNorm: 204283 1 Tablet(s) PO Q AM prn edema--take with potassium 12/11/2017 06/08/2018 Inactive cyclobenzaprine 10 mg tablet RxNorm: 156935 1 Tablet(s) PO TID as needed for muscle spasm 12/11/2017 03/18/2018 Inactive hydrocodone 10 mg-acetaminophen 325 mg tablet RxNorm: 731138 1-2 Tablet(s) QID as needed for pain MUST LAST 30 DAYS 10/23/2017 11/21/2017 Inactive (Response to an electronic controlled substance refill request - RxReferenceNumber: [id number]) Lipitor 10 mg tablet RxNorm: 352292 1 Tablet(s) PO QHS 10/16/201703/2018 Inactive cyclobenzaprine 10 mg tablet RxNorm: 929826 1 Tablet(s) PO TID as needed for muscle spasm 10/09/2017 12/10/2017 Inactive hydroxyzine HCl 25 mg tablet RxNorm: 120463 1 Tablet(s) PO BID as needed for anxiety 09/20/2017 01/29/2018 Inactive Effexor XR 75 mg capsule,extended release RxNorm: 727582 1 Caps ule(s) PO QD 09/20/2017 01/29/2018 Inactive metoprolol tartrate 100 mg tablet RxNorm: 456563 1 Tablet(s) PO BID 08/20/2017 02/18/2018 Inactive baclofen 20 mg tablet RxNorm: 122357 1 Tablet(s) PO TID as needed for muscle spasm 08/20/2017 01/21/2019 Inactive clonidine HCl 0.1 mg tablet RxNorm: 459925 1 Tablet(s) PO QID 08/2005/16/2018 Inactive Seroquel 25 mg tablet RxNorm: 241775 1 Tablet(s) PO QHS 08/17/2017 Inactive Seroquel 25 mg tablet RxNorm: 905058 1 Tablet(s) PO QHS 08/17/2017 Inactive Diflucan 100 mg tablet RxNorm: 864914 TAKE ONE TABLET BY MOUTH JOSÉ Y 07/25/2017 08/07/2017 Inactive hydrocodone 10 mg-acetaminophen 325 mg tablet RxNorm: 285788 1-2 Tablet(s) QID as needed for pain MUST LAST 30 DAYS 07/19/2017 08/17/2017 Inactive (Response to an electronic controlled substance refill request - RxReferenceNumber: [id number]) clindamycin 300 mg capsule RxNorm: 712274 1 Capsule(s) PO TID 07/1907/28/2017 Inactive clotrimazole-betamethasone 1 %-0.05 % topical cream RxNorm: 506723 Application TOP BID to elbow rash 07/19/2017 06/16/2018 Inactive Singulair 10 mg tablet RxNorm: 828065 Tablet(s) TAKE ONE TABLET BY MOUTH DAILY 07/18/2017 04/13/2018 Inactive triamterene 75 mg-hydrochlorothiazide 50 mg tablet RxNorm: 3 64134 1 Tablet(s) PO QD 07/18/2017 01/14/2018 Inactive Celebrex 200 mg capsule RxNorm: 134523 Capsule(s) TAKE ONE CAPSULE BY MOUTH TWICE A DAY 07/18/2017 10/15/2017 Inactive hydrocodone 10 mg-acetaminophen 325 mg tablet RxNorm: 244514 1-2 Tablet(s) QID as needed for pain MUST LAST 30 DAYS 06/19/2017 07/18/2017 Inactive (Response to an electronic controlled substance refill request - RxReferenceNumber: [id number]) hydrocodone 10 mg-acetaminophen 325 mg tablet RxNorm: 373869 1-2 Tablet(s) QID as needed for pain MUST LAST 30 DAYS 06/19/2017 06/18/2017 Inactive (Response to an electronic controlled substance refill request - RxReferenceNumber: [id number]) baclofen 20 mg tablet RxNorm: 900348 1 Tablet(s) PO TID as needed for muscle spasm 06/18/2017 08/20/2017 Inactive Medrol (Dustin) 4 mg tablets in a dose pack RxNorm: 336203 Tablet(s) PO As Directed 06/05/2017 07/18/2017 Inactive omeprazole 40 mg capsule,delayed release RxNorm: 120857 1 Capsu le(s) PO QD 04/20/2017 10/16/2017 Inactive Premarin 1.25 mg tablet RxNorm: 063153 1-2 Tablet(s) PO QD 04/11/20 17 05/15/2018 Inactive duloxetine 60 mg capsule,delayed release RxNorm: 788680 1 Capsu le(s) PO QD 04/11/2017 09/19/2017 Inactive furosemide 40 mg tablet RxNorm: 145743 1 Tablet(s) PO Q AM prn edema--take with potassium 04/11/2017 12/11/2017 Inactive Klor-Con 8 mEq tablet,extended release RxNorm: 191647 1 Tablet( s) PO BID 04/11/2017 01/14/2018 Inactive Lipitor 10 mg tablet RxNorm: 303325 1 Tablet(s) PO QHS 04/11/201702/2018 Inactive amlodipine 5 mg-benazepril 20 mg capsule RxNorm: 608023 1 Capsu le(s) PO QD 04/11/2017 01/29/2018 Inactive allopurinol 300 mg tablet RxNorm: 189111 1 Tablet(s) PO QD 04/11/20 17 01/14/2018 Inactive clonidine HCl 0.1 mg tablet RxNorm: 361567 1 Tablet(s) PO QID 04/0508/19/2017 Inactive baclofen 20 mg tablet RxNorm: 277308 1 Tablet(s) PO TID as needed for muscle spasm 04/02/2017 06/18/2017 Inactive Premarin 1.25 mg tablet RxNorm: 947098 1-2 Tablet(s) PO QD 03/20/20 17 04/10/2017 Inactive hydrocodone 10 mg-acetaminophen 325 mg tablet RxNorm: 400887 1-2 Tablet(s) QID as needed for pain MUST LAST 30 DAYS 03/14/2017 01/21/2019 Inactive (Response to an electronic controlled substance refill request - RxReferenceNumber: [id number]) metoprolol tartrate 100 mg tablet RxNorm: 510783 1 Tablet(s) PO BID 02/12/2017 08/20/2017 Inactive hydrocodone 10 mg-acetaminophen 325 mg tablet RxNorm: 382179 1-2 Tablet(s) QID as needed for pain MUST LAST 30 DAYS 02/08/2017 03/09/2017 Inactive (Response to an electronic controlled substance refill request - RxReferenceNumber: [id number]) metoprolol tartrate 100 mg tablet RxNorm: 000441 TAKE O NE TABLET BY MOUTH TWICE A DAY 01/11/2017 02/12/2017 Inactive metoprolol tartrate 100 mg tablet RxNorm: 161182 1 Tablet(s) PO BID 12/18/2016 12/17/2016 Inactive metoprolol tartrate 100 mg tablet RxNorm: 615718 1 Tablet(s) PO BID 12/18/2016 01/10/2017 Inactive furosemide 40 mg tablet RxNorm: 266277 1 Tablet(s) PO Q AM prn edema--take with potassium 12/13/2016 02/10/2017 Inactive amitriptyline 100 mg tablet RxNorm: 230096 1 Tablet(s) PO QHS 11/2812/12/2016 Inactive baclofen 20 mg tablet RxNorm: 463505 1 Tablet(s) PO TID as needed for muscle spasm 11/14/2016 04/01/2017 Inactive triamterene 75 mg-hydrochlorothiazide 50 mg tablet RxNorm: 3 66910 1 Tablet(s) PO QD 11/14/2016 11/13/2016 Inactive metolazone 2.5 mg tablet RxNorm: 991935 TAKE ONE TABLET BY MOUTH DAILY NEEDED FOR EDEMA 11/14/2016 12/12/2016 Inactive triamterene 75 mg-hydrochlorothiazide 50 mg tablet RxNorm: 3 52630 1 Tablet(s) PO QD 11/14/2016 07/18/2017 Inactive amitriptyline 50 mg tablet RxNorm: 287311 TAKE ONE TABL ET BY MOUTH AT BEDTIME NEEDED FOR SLEEP 11/14/2016 11/27/2016 Inactive Cymbalta 60 mg capsule,delayed release RxNorm: 891152 1 Capsule (s) PO QHS 11/14/2016 12/12/2016 Inactive clonidine HCl 0.1 mg tablet RxNorm: 265960 1 Tablet(s) PO QID 11/1304/04/2017 Inactive amitriptyline 50 mg tablet RxNorm: 179569 1 Tablet(s) P O QHS as needed for sleep 11/01/2016 11/27/2016 Inactive duloxetine 60 mg capsule,delayed release RxNorm: 139416 TAKE ONE CAPSULE BY MOUTH DAILY 10/20/2016 01/17/2017 Inactive allopurinol 300 mg tablet RxNorm: 281648 TAKE ONE TABLET BY LOPEZ TH DAILY 10/20/2016 01/16/2017 Inactive Lyrica 75 mg capsule RxNorm: 969015 TAKE ONE CAPSULE BY MOUTH EVERY NIGHT AT BEDTIME 10/20/2016 12/10/2016 Inactive Klor-Con 8 mEq tablet,extended release RxNorm: 723776 T FARRUKH ONE TABLET BY MOUTH TWICE A DAY 10/20/2016 01/17/2017 Inactive Celebrex 200 mg capsule RxNorm: 838845 TAKE ONE CAPSULE BY MOUT H TWICE A DAY 10/20/2016 07/18/2017 Inactive Bystolic 10 mg tablet RxNorm: 923116 TAKE ONE TABLET BY MOUTH EVERY NIGHT AT BEDTIME 10/20/2016 12/17/2016 Inactive amlodipine 5 mg-benazepril 20 mg capsule RxNorm: 457511 TAKE ONE CAPSULE BY MOUTH EVERY NIGHT AT BEDTIME -- TO REPLACE AMLODOPINE 10/20/20162016 Inactive Lipitor 10 mg tablet RxNorm: 245479 TAKE ONE TABLET BY MOUTH EVERY NIGHT AT BEDTIME 10/20/2016 01/17/2017 Inactive alprazolam 0.5 mg tablet RxNorm: 629883 3 Tablet(s) PO QHS as needed for sleep/anxiety 09/20/2016 10/31/2016 Inactive Tamiflu 75 mg capsule RxNorm: 672621 1 Capsule(s) PO QD 09/19/2016 Inactive Lyrica 75 mg capsule RxNorm: 213994 1 Capsule(s) PO QHS 09/19/2016 Inactive prednisone 20 mg tablet RxNorm: 167092 1 Tablet(s) PO QD 08/10/2016 1 10/17/2015 Inactive doxycycline hyclate 100 mg capsule RxNorm: 6623823 1 Capsule(s) PO BID 08/10/2016 08/19/2016 Inactive Medrol (Dustin) 4 mg tablets in a dose pack RxNorm: 960418 Tablet(s) PO As Directed 07/31/2016 08/22/2016 Inactive Singulair 10 mg tablet RxNorm: 180626 TAKE ONE TABLET BY MOUTH JOSÉ Y 07/27/2016 07/18/2017 Inactive hydrocodone 10 mg-acetaminophen 325 mg tablet RxNorm: 821783 1-2 Tablet(s) QID as needed for pain MUST LAST 30 DAYS 07/26/2016 08/24/2016 Inactive (Response to an electronic controlled substance refill request - RxReferenceNumber: [id number]) alprazolam 0.5 mg tablet RxNorm: 537186 3 Tablet(s) PO QHS as needed for anxiety or sleep 07/26/2016 09/20/2016 Inactive clindamycin 300 mg capsule RxNorm: 596925 1 Capsule(s) PO TID 07/2007/29/2016 Inactive Diflucan 100 mg tablet RxNorm: 302024 1 Tablet(s) PO QD 07/20/2016 Inactive Levaquin 500 mg tablet RxNorm: 756422 1 Tablet(s) PO QD 07/17/2016 Inactive Levaquin 500 mg tablet RxNorm: 195734 1 Tablet(s) PO QD 07/10/2016 Inactive Levaquin 500 mg tablet RxNorm: 333184 1 Tablet(s) PO QD 07/10/2016 Inactive mupirocin 2 % topical ointment RxNorm: 665100 TOP Apply topically to affected areas twice daily 07/06/2016 09/18/2016 Inactive Singulair 10 mg tablet RxNorm: 349014 TAKE ONE TABLET BY MOUTH JOSÉ Y 06/21/2016 01/21/2019 Inactive alprazolam 0.5 mg tablet RxNorm: 837010 TAKE THREE TABL ETS BY MOUTH AT BEDTIME NEEDED FOR SLEEP OR STRESS 05/22/2016 06/20/2016 Inactive triamterene 75 mg-hydrochlorothiazide 50 mg tablet RxNorm: 3 18160 1 Tablet(s) PO QD 04/26/2016 10/21/2016 Inactive Premarin 1.25 mg tablet RxNorm: 340927 1-2 Tablet(s) PO QD 04/26/20 16 03/20/2017 Inactive Klor-Con 8 mEq tablet,extended release RxNorm: 396032 1 Tablet( s) PO BID 04/26/2016 10/19/2016 Inactive Celebrex 200 mg capsule RxNorm: 733223 1 Capsule(s) PO BID TAKE ONE CAPSULE BY MOUTH EVERY DAY 04/26/2016 10/19/2016 Inactive Lipitor 10 mg tablet RxNorm: 009379 1 Tablet(s) PO QHS 04/26/201605/2017 Inactive allopurinol 300 mg tablet RxNorm: 118521 1 Tablet(s) PO QD TAKE ONE TABLET BY MOUTH EVERY DAY 04/26/2016 10/19/2016 Inactive amlodipine 5 mg-benazepril 20 mg capsule RxNorm: 820020 1 Capsule(s) PO QHS replaces amlodopine 04/26/2016 10/19/2016 Inactive duloxetine 60 mg capsule,delayed release RxNorm: 192248 1 Capsu le(s) PO QD 04/26/2016 10/19/2016 Inactive Bystolic 10 mg tablet RxNorm: 046159 1 Tablet(s) PO QHS 04/26/2016 Inactive Singulair 10 mg tablet RxNorm: 739972 1 Tablet(s) PO QD TAKE ONE TABLET BY MOUTH DAILY 04/26/2016 06/20/2016 Inactive clonidine HCl 0.1 mg tablet RxNorm: 033716 1 Tablet(s) PO QID 04/2610/22/2016 Inactive hydrocodone 10 mg-acetaminophen 325 mg tablet RxNorm: 565224 1-2 Tablet(s) QID as needed for pain TAKE ONE TO TWO TABLETS BY MOUTH FOUR TIMES A DAY . MUST LAST 30 DAYS 03/31/2016 04/29/2016 Inactive (Response to an electronic controlled substance refill request - RxReferenceNumber: [id number]) Klor-Con 8 mEq tablet,extended release RxNorm: 779224 T FARRUKH ONE TABLET BY MOUTH TWICE A DAY 03/24/2016 09/29/2019 Inactive prednisone 20 mg tablet RxNorm: 477209 1 Tablet(s) PO QD 03/09/2016 0 03/08/2016 Inactive prednisone 20 mg tablet RxNorm: 414474 1 Tablet(s) PO QD 03/09/2016 0 03/13/2016 Inactive alprazolam 0.5 mg tablet RxNorm: 763341 3 Tablet(s) PO QHS as needed for sleep/stress 03/02/2016 01/21/2019 Inactive mupirocin 2 % topical ointment RxNorm: 334600 TOP twice daily to affected areas of face and neck 02/21/2016 04/25/2016 Inactive clonidine HCl 0.1 mg tablet RxNorm: 101356 TAKE ONE TAB LET BY MOUTH FOUR TIMES A DAY 02/15/2016 09/29/2019 Inactive clonidine HCl 0.1 mg tablet RxNorm: 764047 1 Tablet(s) PO QID 02/1404/25/2016 Inactive Premarin 1.25 mg tablet RxNorm: 542118 1-2 Tablet(s) PO QD 02/15/20 16 03/15/2016 Inactive Klor-Con 8 mEq tablet,extended release RxNorm: 297928 T FARRUKH ONE TABLET BY MOUTH TWICE A DAY 02/15/2016 03/15/2016 Inactive potassium chloride ER 20 mEq tablet,extended release(part/cr yst) RxNorm: 888222 2 Tablet(s) PO BID 02/15/2016 03/15/2016 Inactive Macrobid 100 mg capsule RxNorm: 289899 1 Capsule(s) PO BID 01/24/20 16 01/30/2016 Inactive prednisone 20 mg tablet RxNorm: 389956 Take 3tabs PO QD x 2 days, then 2 tabs PO QD x 2 days, then 1 tab PO QD x 2 days, then 1/2 tab PO QDy x 2 days 12/23/2015 04/25/2016 Inactive Klor-Con 8 mEq tablet,extended release RxNorm: 758354 T FARRUKH ONE TABLET BY MOUTH TWICE A DAY 12/20/2015 02/14/2016 Inactive alprazolam 1 mg tablet RxNorm: 179577 1 1/2 Tablet(s) PO QHS 201501/23/2016 Inactive nystatin 100,000 unit/gram topical cream RxNorm: 991115 APPLY TO AFFECTED AREA(S) TWO TIMES A DAY 11/30/2015 12/14/2015 Inactive Singulair 10 mg tablet RxNorm: 094110 TAKE ONE TABLET BY MOUTH JOSÉ Y 11/18/2015 04/25/2016 Inactive allopurinol 300 mg tablet RxNorm: 762073 1 Tablet(s) PO QD TAKE ONE TABLET BY MOUTH EVERY DAY 10/26/2015 04/22/2016 Inactive Singulair 10 mg tablet RxNorm: 316614 TAKE ONE TABLET BY MOUTH JOSÉ Y 10/26/2015 11/17/2015 Inactive duloxetine 60 mg capsule,delayed release RxNorm: 484789 1 Capsu le(s) PO QD 10/26/2015 04/22/2016 Inactive triamterene 75 mg-hydrochlorothiazide 50 mg tablet RxNorm: 3 97609 1 Tablet(s) PO QD 10/26/2015 11/14/2016 Inactive potassium chloride ER 20 mEq tablet,extended release(part/cr yst) RxNorm: 293154 2 Tablet(s) PO BID 10/26/2015 02/14/2016 Inactive Lipitor 10 mg tablet RxNorm: 091597 1 Tablet(s) PO QHS 10/26/2015 Inactive amlodipine 5 mg-benazepril 20 mg capsule RxNorm: 439494 1 Capsule(s) PO QHS replaces amlodopine 10/26/2015 04/22/2016 Inactive Bystolic 10 mg tablet RxNorm: 509434 1 Tablet(s) PO QHS 10/26/2015 Inactive amlodipine 5 mg-benazepril 20 mg capsule RxNorm: 702883 1 Capsule(s) PO QHS replaces amlodopine 10/06/2015 10/25/2015 Inactive amlodipine 5 mg tablet RxNorm: 023023 1 Tablet(s) PO QHS 09/30/2015 0 04/25/2016 Inactive metolazone 2.5 mg tablet RxNorm: 170830 TAKE ONE TABLET BY MOUTH DAILY NEEDED FOR EDEMA 09/30/2015 01/21/2019 Inactive duloxetine 60 mg capsule,delayed release RxNorm: 943212 1 Capsu le(s) PO QD 09/30/2015 10/25/2015 Inactive cephalexin 500 mg capsule RxNorm: 201831 1 Capsule(s) PO BID 201509/23/2015 Inactive mupirocin 2 % topical ointment RxNorm: 629148 TOP twice daily to affected areas of face and neck 09/14/2015 02/20/2016 Inactive baclofen 20 mg tablet RxNorm: 598355 1 Tablet(s) PO TID as needed for muscle spasm 09/01/2015 11/14/2016 Inactive clonidine HCl 0.1 mg tablet RxNorm: 015629 1 Tablet(s) PO QID 09/0102/14/2016 Inactive alprazolam 1 mg tablet RxNorm: 842453 1 1/2 Tablet(s) PO QHS 201409/09/2015 Inactive baclofen 20 mg tablet RxNorm: 455731 1 Tablet(s) PO TID as needed for muscle spasm 07/23/2015 09/01/2015 Inactive omeprazole 40 mg capsule,delayed release RxNorm: 281354 1 Capsu le(s) PO QD 07/23/2015 04/25/2016 Inactive alprazolam 1 mg tablet RxNorm: 601113 1 1/2 Tablet(s) PO QHS 201408/10/2015 Inactive Bystolic 10 mg tablet RxNorm: 499022 1 Tablet(s) PO BID 06/24/2015 Inactive allopurinol 300 mg tablet RxNorm: 602009 1 Tablet(s) PO QD TAKE ONE TABLET BY MOUTH EVERY DAY 06/23/2015 10/20/2015 Inactive alprazolam 1 mg tablet RxNorm: 193797 1 1/2 Tablet(s) PO QHS 201407/06/2015 Inactive clonidine HCl 0.1 mg tablet RxNorm: 086143 1 Tablet(s) PO QID 06/0209/01/2015 Inactive clonidine HCl 0.1 mg tablet RxNorm: 354430 1 Tablet(s) PO QID 06/0206/01/2015 Inactive Cymbalta 60 mg capsule,delayed release RxNorm: 517245 1 Capsule (s) PO QHS 06/02/2015 08/30/2015 Inactive Cymbalta 60 mg capsule,delayed release RxNorm: 560979 1 Capsule (s) PO QHS 06/02/2015 06/01/2015 Inactive clonidine HCl 0.1 mg tablet RxNorm: 655290 1 Tablet(s) PO TID 05/3106/01/2015 Inactive replaces 0.2mg dose metolazone 2.5 mg tablet RxNorm: 217137 TAKE ONE TABLET BY MOUTH DAILY NEEDED FOR EDEMA 05/21/2015 06/19/2015 Inactive Singulair 10 mg tablet RxNorm: 010405 TAKE ONE TABLET BY MOUTH JOSÉ Y 05/21/2015 10/17/2015 Inactive Cymbalta 30 mg capsule,delayed release RxNorm: 088513 1 Capsule (s) PO QHS 05/20/2015 11/14/2016 Inactive betamethasone valerate 0.1 % topical cream RxNorm: 180993 Appli cation TOP BID 05/10/2015 04/25/2016 Inactive Bactroban 2 % topical ointment RxNorm: 283700 Application TOP BID 0 05/10/2015 06/20/2015 Inactive baclofen 20 mg tablet RxNorm: 850931 1 Tablet(s) PO TID as needed 0 04/26/2015 07/23/2015 Inactive Lipitor 10 mg tablet RxNorm: 217088 1 Tablet(s) PO QHS 04/26/201508/2016 Inactive clonidine HCl 0.1 mg tablet RxNorm: 760522 1 Tablet(s) PO TID 04/2605/30/2015 Inactive replaces 0.2mg dose Klor-Con 8 mEq tablet,extended release RxNorm: 313786 1 Tablet( s) PO BID 04/26/2015 04/25/2016 Inactive metolazone 2.5 mg tablet RxNorm: 540535 1 Tablet(s) PO QD as ne eded for edema 04/26/2015 04/25/2015 Inactive triamterene 75 mg-hydrochlorothiazide 50 mg tablet RxNorm: 3 98007 1 Tablet(s) PO QD 04/26/2015 10/22/2015 Inactive Premarin 1.25 mg tablet RxNorm: 487278 1-2 Tablet(s) PO QD 04/26/2010/22/2015 Inactive Bystolic 10 mg tablet RxNorm: 513061 1 Tablet(s) PO QAM TAKE ONE TABLET BY MOUTH EVERY MORNING 04/23/2015 06/23/2015 Inactive clonidine HCl 0.1 mg tablet RxNorm: 375690 1 Tablet(s) PO TID 03/2304/25/2015 Inactive replaces 0.2mg dose nystatin 100,000 unit/gram topical cream RxNorm: 212185 Applica tion TOP BID 03/23/2015 06/20/2015 Inactive baclofen 20 mg tablet RxNorm: 065679 1 Tablet(s) PO TID as needed 0 03/23/2015 04/25/2015 Inactive Premarin 1.25 mg tablet RxNorm: 765452 1-2 Tablet(s) PO QD 03/23/2004/25/2015 Inactive Klor-Con 8 mEq tablet,extended release RxNorm: 448470 1 Tablet( s) PO BID 03/23/2015 04/25/2015 Inactive cefdinir 300 mg capsule RxNorm: 566397 2 Capsule(s) PO QD 03/16/2015 03/25/2015 Inactive baclofen 20 mg tablet RxNorm: 605646 1 Tablet(s) PO TID as needed 0 03/02/2015 03/22/2015 Inactive allopurinol 300 mg tablet RxNorm: 187241 1 Tablet(s) PO QD TAKE ONE TABLET BY MOUTH EVERY DAY 02/22/2015 05/22/2015 Inactive Klor-Con M20 mEq tablet,extended release RxNorm: 503205 2 Tablet(s) PO BID to use with lasix 02/22/2015 06/20/2015 Inactive clonidine HCl 0.1 mg tablet RxNorm: 521842 1 Tablet(s) PO TID 02/1903/22/2015 Inactive replaces 0.2mg dose Lipitor 10 mg tablet RxNorm: 035076 1 Tablet(s) PO QHS 01/20/201506/2015 Inactive Lipitor 10 mg tablet RxNorm: 770424 1 Tablet(s) PO QHS 01/20/2015 Inactive Singulair 10 mg tablet RxNorm: 942781 1 Tablet(s) PO QD TAKE ONE TABLET BY MOUTH EVERY DAY 11/20/2014 05/18/2015 Inactive Lipitor 10 mg tablet RxNorm: 661849 1 Tablet(s) PO QHS 11/20/201408/2015 Inactive allopurinol 300 mg tablet RxNorm: 752147 1 Tablet(s) PO QD TAKE ONE TABLET BY MOUTH EVERY DAY 11/20/2014 02/16/2015 Inactive Bystolic 10 mg tablet RxNorm: 349440 1 Tablet(s) PO QAM TAKE ONE TABLET BY MOUTH EVERY MORNING 11/20/2014 04/22/2015 Inactive Klor-Con 8 mEq tablet,extended release RxNorm: 441184 1 Tablet( s) PO BID 11/20/2014 02/17/2015 Inactive baclofen 20 mg tablet RxNorm: 422911 1 Tablet(s) PO TID as needed 0 11/20/2014 01/21/2019 Inactive baclofen 20 mg tablet RxNorm: 085509 1 Tablet(s) PO TID as needed 0 10/27/2014 11/19/2014 Inactive baclofen 20 mg tablet RxNorm: 774427 1 Tablet(s) PO TID as needed 0 10/26/2014 03/01/2015 Inactive allopurinol 300 mg tablet RxNorm: 897024 1 Tablet(s) PO QD TAKE ONE TABLET BY MOUTH EVERY DAY 10/26/2014 11/20/2014 Inactive Bystolic 10 mg tablet RxNorm: 599504 1 Tablet(s) PO QAM TAKE ONE TABLET BY MOUTH EVERY MORNING 10/26/2014 11/20/2014 Inactive clonidine HCl 0.1 mg tablet RxNorm: 728520 1 Tablet(s) PO TID 09/2805/27/2019 Inactive replaces 0.2mg dose clonidine HCl 0.1 mg tablet RxNorm: 330883 1 Tablet(s) PO TID 09/2802/18/2015 Inactive replaces 0.2mg dose baclofen 20 mg tablet RxNorm: 215256 1 Tablet(s) PO TID as needed 1 11/01/2013 08/30/2014 Inactive Lipitor 10 mg tablet RxNorm: 082760 1 Tablet(s) PO QHS 08/31/2014 Inactive baclofen 20 mg tablet RxNorm: 637684 1 Tablet(s) PO TID as needed 1 11/01/2013 10/26/2014 Inactive triamterene 75 mg-hydrochlorothiazide 50 mg tablet RxNorm: 3 31610 1 Tablet(s) PO QD 08/31/2014 02/26/2015 Inactive Klor-Con 8 mEq tablet,extended release RxNorm: 906563 1 Tablet( s) PO BID 08/31/2014 11/20/2014 Inactive baclofen 20 mg tablet RxNorm: 742535 1 Tablet(s) PO TID as needed 1 09/30/2013 10/25/2014 Inactive baclofen 20 mg tablet RxNorm: 428087 1 Tablet(s) PO TID as needed 1 09/30/2013 08/31/2014 Inactive omeprazole 40 mg capsule,delayed release RxNorm: 284007 1 Capsu le(s) PO QD 07/21/2014 07/23/2015 Inactive Flonase 50 mcg/actuation nasal spray,suspension RxNorm: 8963 23 1 [place] NASAL BID 07/15/2014 04/09/2017 Inactive hydrocodone 10 mg-acetaminophen 325 mg tablet RxNorm: 299756 1-2 Tablet(s) QID as needed for pain TAKE ONE TO TWO TABLETS BY MOUTH FOUR TIMES A DAY . MUST LAST 30 DAYS 06/30/2014 07/27/2014 Inactive (Response to an electronic controlled substance refill request - RxReferenceNumber: [id number]) baclofen 20 mg tablet RxNorm: 314735 1 Tablet(s) PO TID as needed 1 07/31/2014 Inactive Singulair 10 mg tablet RxNorm: 560577 1 Tablet(s) PO QD TAKE ONE TABLET BY MOUTH EVERY DAY 05/25/2014 11/20/2014 Inactive Bystolic 10 mg tablet RxNorm: 611708 TAKE ONE TABLET BY MOUTH E VERY MORNING 05/25/2014 09/21/2014 Inactive allopurinol 300 mg tablet RxNorm: 641325 1 Tablet(s) PO QD TAKE ONE TABLET BY MOUTH EVERY DAY 05/25/2014 10/21/2014 Inactive baclofen 20 mg tablet RxNorm: 918510 1 Tablet(s) PO TID as needed 0 05/25/2014 06/29/2014 Inactive allopurinol 300 mg tablet RxNorm: 315346 TAKE ONE TABLET BY LOPEZ TH EVERY DAY 05/25/2014 09/21/2014 Inactive Singulair 10 mg tablet RxNorm: 912435 1 Tablet(s) PO QD TAKE ONE TABLET BY MOUTH EVERY DAY 05/25/2014 05/24/2014 Inactive Bystolic 10 mg tablet RxNorm: 264447 1 Tablet(s) PO QAM TAKE ONE TABLET BY MOUTH EVERY MORNING 05/25/2014 10/21/2014 Inactive metolazone 2.5 mg tablet RxNorm: 768046 1 Tablet(s) PO QD as ne eded for edema 05/18/2014 04/25/2015 Inactive Lasix 40 mg tablet RxNorm: 849044 1 Tablet(s) PO QAM s hould take potassium supplementation with this medication 05/14/2014 05/17/2014 Inactive hydrocodone 10 mg-acetaminophen 325 mg tablet RxNorm: 620152 1-2 Tablet(s) QID as needed for pain TAKE ONE TO TWO TABLETS BY MOUTH FOUR TIMES A DAY . MUST LAST 30 DAYS 05/07/2014 06/05/2014 Inactive (Response to an electronic controlled substance refill request - RxReferenceNumber: [id number]) alprazolam 0.5 mg tablet RxNorm: 074358 TAKE ONE TABLET BY MOUTH TWICE A DAY , MUST LAST 30 DAYS 05/07/2014 05/22/2016 Inactive (Response to a n electronic controlled substance refill request - RxReferenceNumber: [id number]) diclofenac sodium 75 mg tablet,delayed release RxNorm: 79396 6 1 Tablet(s) PO BID for pain 04/24/2014 07/20/2014 Inactive Celebrex 200 mg capsule RxNorm: 475376 TAKE ONE CAPSULE BY MOUT H EVERY DAY 04/24/2014 07/20/2014 Inactive alprazolam 0.5 mg tablet RxNorm: 022770 TAKE ONE TABLET BY MOUTH TWICE A DAY , MUST LAST 30 DAYS 03/24/2014 04/22/2014 Inactive (Response to a n electronic controlled substance refill request - RxReferenceNumber: [id number]) diclofenac sodium 75 mg tablet,delayed release RxNorm: 51291 6 1 Tablet(s) PO BID for pain 03/24/2014 04/24/2014 Inactive clonidine HCl 0.1 mg tablet RxNorm: 849429 1 Tablet(s) PO TID 03/2409/28/2014 Inactive replaces 0.2mg dose Klor-Con 8 mEq tablet,extended release RxNorm: 812767 1 Tablet( s) PO BID 02/26/2014 08/31/2014 Inactive diclofenac sodium 75 mg tablet,delayed release RxNorm: 49246 6 1 Tablet(s) PO BID for pain 02/25/2014 03/24/2014 Inactive hydrocodone 10 mg-acetaminophen 325 mg tablet RxNorm: 099883 1-2 Tablet(s) QID as needed for pain TAKE ONE TO TWO TABLETS BY MOUTH FOUR TIMES A DAY . MUST LAST 30 DAYS 02/25/2014 03/26/2014 Inactive (Response to an electronic controlled substance refill request - RxReferenceNumber: [id number]) alprazolam 0.5 mg tablet RxNorm: 771839 Tablet(s) PO BI D as needed for anxiety TAKE ONE TABLET BY MOUTH TWICE A DAY , MUST LAST 30 DAYS 02/25/2014 Inactive (Response to an electronic controlled [place] bstance refill request - RxReferenceNumber: [id number]) [AttnRPh: Saving apply/adjudicate RxGRP:SG20 RxBIN:[id number] RxPCN: ID#:[id number]] alprazolam 0.5 mg tablet RxNorm: 311623 Tablet(s) TAKE ONE TABLET BY MOUTH TWICE A DAY , MUST LAST 30 DAYS 01/27/2014 02/24/2014 Inactive (Respo nse to an electronic controlled substance refill request - RxReferenceNumber: [id number]) [AttnRPh: Saving apply/adjudicate RxGRP:[id number] RxBIN:[id number] RxPCN: ID#:[id number]] hydrocodone 10 mg-acetaminophen 325 mg tablet RxNorm: 752615 1-2 Tablet(s) QID as needed for pain TAKE ONE TO TWO TABLETS BY MOUTH FOUR TIMES A DAY . MUST LAST 30 DAYS 01/27/2014 02/24/2014 Inactive (Response to an electronic controlled substance refill request - RxReferenceNumber: [id number]) alprazolam 0.5 mg tablet RxNorm: 012577 TAKE ONE TABLET BY MOUTH TWICE A DAY , MUST LAST 30 DAYS 01/27/2014 01/26/2014 Inactive (Response to a n electronic controlled substance refill request - RxReferenceNumber: [id number]) Premarin 1.25 mg tablet RxNorm: 478382 1-2 Tablet(s) PO QD 01/28/20 14 07/25/2014 Inactive alprazolam 0.5 mg tablet RxNorm: 377776 TAKE ONE TABLET BY MOUTH TWICE A DAY , MUST LAST 30 DAYS 01/27/2014 01/27/2014 Inactive (Response to a n electronic controlled substance refill request - RxReferenceNumber: [id number]) hydrocodone 10 mg-acetaminophen 325 mg tablet RxNorm: 485012 TAKE ONE TO TWO TABLETS BY MOUTH FOUR TIMES A DAY . MUST LAST 30 DAYS 01/27/20142013 Inactive (Response to an electronic controlled [place] bstance refill request - RxReferenceNumber: [id number]) Celebrex 200 mg capsule RxNorm: 951639 1 Capsule(s) PO QD TAKE ONE CAPSULE BY MOUTH EVERY DAY 12/29/2013 04/27/2014 Inactive hydrocodone 10 mg-acetaminophen 325 mg tablet RxNorm: 881371 1-2 Tablet(s) PO QID as needed for severe pain 12/29/2013 01/27/2014 Inactive allopurinol 300 mg tablet RxNorm: 707228 1 Tablet(s) PO QD TAKE ONE TABLET BY MOUTH EVERY DAY 12/29/2013 05/24/2014 Inactive alprazolam 0.5 mg tablet RxNorm: 624409 TAKE ONE TABLET BY MOUTH TWICE A DAY , MUST LAST 30 DAYS 12/29/2013 01/27/2014 Inactive (Response to a n electronic controlled substance refill request - RxReferenceNumber: [id number]) Celebrex 200 mg capsule RxNorm: 813847 1 Capsule(s) PO QD TAKE ONE CAPSULE BY MOUTH EVERY DAY 12/29/2013 12/29/2013 Inactive Bystolic 10 mg tablet RxNorm: 915470 1 Tablet(s) PO QAM TAKE ONE TABLET BY MOUTH EVERY MORNING 12/29/2013 05/24/2014 Inactive Bystolic 10 mg tablet RxNorm: 971686 1 Tablet(s) PO QAM TAKE ONE TABLET BY MOUTH EVERY MORNING 12/29/2013 12/29/2013 Inactive Singulair 10 mg tablet RxNorm: 094820 1 Tablet(s) PO QD TAKE ONE TABLET BY MOUTH EVERY DAY 12/29/2013 05/25/2014 Inactive hydrocodone 10 mg-acetaminophen 325 mg tablet RxNorm: 131165 TAKE ONE TO TWO TABLETS BY MOUTH FOUR TIMES A DAY . MUST LAST 30 DAYS 12/29/20132013 Inactive (Response to an electronic controlled [place] bstance refill request - RxReferenceNumber: [id number]) Trazadone 75mg Tablet RxNorm: 1 Tablet(s) PO QHS as needed 03/23/2014 Inactive Trazadone 75mg Tablet RxNorm: 1 Tablet(s) PO QHS 12/24/20132014 Inactive Soma 350 mg tablet RxNorm: 654820 Tablet(s) PO TAKE ON E TABLET BY MOUTH THREE TIMES A DAY NEEDED FOR MUSCLE SPASMS. THIS MUST LAST 30 DAYS BETWEEN REFILLS. 12/10/2013 12/22/2013 Inactive (Appended: Cont rolled substance eRx refill - RxReferenceNumber: [id number]) diclofenac sodium 75 mg tablet,delayed release RxNorm: 20637 6 1 Tablet(s) PO BID for pain 12/10/2013 02/24/2014 Inactive allopurinol 300 mg tablet RxNorm: 585646 1 Tablet(s) PO QD 11/20/19 14 12/29/2013 Inactive alprazolam 0.5 mg tablet RxNorm: 044391 2 Tablet(s) PO BID 11/13/19 14 12/29/2013 Inactive prn clonidine 0.1 mg tablet RxNorm: 060213 1 Tablet(s) PO TID 11/12/2013 02/09/2014 Inactive replaces 0.2mg dose Klor-Con M20 mEq tablet,extended release RxNorm: 549319 2 Tablet(s) PO BID to use with lasix 11/12/2013 05/10/2014 Inactive Singulair 10 mg tablet RxNorm: 133378 1 Tablet(s) PO QD 11/12/2013 Inactive hydrocodone 10 mg-acetaminophen 325 mg tablet RxNorm: 984264 1-2 Tablet(s) PO QID as needed for severe pain 11/12/2013 12/28/2013 Inactive Bystolic 10 mg tablet RxNorm: 488231 1 Tablet(s) PO QAM 11/12/2013 Inactive Soma 350 mg tablet RxNorm: 000838 Tablet(s) PO TAKE ON E TABLET BY MOUTH THREE TIMES A DAY NEEDED FOR MUSCLE SPASMS. THIS MUST LAST 30 DAYS BETWEEN REFILLS. 10/13/2013 12/10/2013 Inactive (Appended: Cont rolled substance eRx refill - RxReferenceNumber: [id number]) hydrocodone 10 mg-acetaminophen 325 mg tablet RxNorm: 996879 1-2 Tablet(s) PO QID as needed for severe pain 10/03/2013 11/11/2013 Inactive diclofenac sodium 75 mg tablet,delayed release RxNorm: 19030 8 1 Tablet(s) PO BID for pain 09/11/2013 12/10/2013 Inactive alprazolam 0.5 mg tablet RxNorm: 653408 1 Tablet(s) PO BID May refill on 04/26/13 09/01/2013 10/30/2013 Inactive prn hydrocodone 10 mg-acetaminophen 325 mg tablet RxNorm: 567995 1-2 Tablet(s) PO QID as needed for severe pain 09/01/2013 10/02/2013 Inactive triamterene 75 mg-hydrochlorothiazide 50 mg tablet RxNorm: 3 45360 1 Tablet(s) PO QD 08/04/2013 08/31/2014 Inactive cyclobenzaprine 10 mg tablet RxNorm: 259328 1 Tablet(s) PO TID prn spasm 08/04/2013 08/13/2013 Inactive clonidine 0.1 mg tablet RxNorm: 323526 1 Tablet(s) PO TID 08/04/2013 11/11/2013 Inactive replaces 0.2mg dose cyclobenzaprine 10 mg tablet RxNorm: 312770 1 Tablet(s) PO TID prn spasm 07/23/2013 08/01/2013 Inactive hydrocodone 10 mg-acetaminophen 325 mg tablet RxNorm: 892653 2 1-2 Tablet(s) PO QID as needed for severe pain 06/09/2013 08/07/2013 Inactive Singulair 10 mg tablet RxNorm: 989209 1 Tablet(s) PO QD 05/29/2013 Inactive Klor-Con 8 mEq tablet,extended release RxNorm: 548474 1 Tablet( s) PO BID 05/29/2013 02/26/2014 Inactive allopurinol 300 mg tablet RxNorm: 899143 1 Tablet(s) PO QD 05/29/20 13 11/19/2013 Inactive Bystolic 10 mg tablet RxNorm: 279305 1 Tablet(s) PO QAM take one daily in the morning. 05/29/2013 11/11/2013 Inactive scopolamine 1.5 mg 72 hr Transderm Patch RxNorm: 725571 Application TD Q72H for motion sickness 05/26/2013 07/22/2013 Inactive Soma 350 mg tablet RxNorm: 354634 1 Tablet(s) PO TID as needed for spasm 05/19/2013 10/13/2013 Inactive diclofenac sodium 75 mg tablet,delayed release RxNorm: 87446 8 1 Tablet(s) PO BID for pain 05/14/2013 07/22/2013 Inactive allopurinol 300 mg tablet RxNorm: 046065 1 Tablet(s) PO QD 04/25/2005/28/2013 Inactive alprazolam 0.5 mg tablet RxNorm: 351782 1 Tablet(s) PO BID May refill on 04/26/13 04/25/2013 06/23/2013 Inactive prn Celebrex 200 mg capsule RxNorm: 499451 1 Capsule(s) PO QD 04/16/2013 12/29/2013 Inactive alprazolam 0.5 mg tablet RxNorm: 809341 1 Tablet(s) PO BID May refill on 04/26/13 04/16/2013 04/24/2013 Inactive prn Soma 350 mg tablet RxNorm: 450913 1 Tablet(s) PO TID as needed for spasm 04/16/2013 No Stop Date Active Lasix 40 mg tablet RxNorm: 619225 1 Tablet(s) PO RAZA ramirez take potassium supplementation with this medication 04/16/2013 06/14/2013 Inactive clonidine 0.1 mg tablet RxNorm: 467914 1 Tablet(s) PO TID 04/16/2013 08/03/2013 Inactive replaces 0.2mg dose prednisone 20 mg tablet RxNorm: 209051 1 Tablet(s) PO BID 04/16/2013 04/20/2013 Inactive diclofenac sodium 75 mg tablet,delayed release RxNorm: 30192 8 1 Tablet(s) PO BID for pain 04/14/2013 05/13/2013 Inactive hydrocodone 10 mg-acetaminophen 325 mg tablet RxNorm: 580234 2 1-2 Tablet(s) PO QID as needed for severe pain 04/14/2013 No Stop Date Active Lasix 40 mg tablet RxNorm: 270030 1 Tablet(s) PO RAZA ramirez take potassium supplementation with this medication 03/31/2013 04/15/2013 Inactive Celebrex 200 mg capsule RxNorm: 650824 1 Capsule(s) PO QD 03/31/2013 04/15/2013 Inactive alprazolam 0.5 mg tablet RxNorm: 186748 1 Tablet(s) PO BID 03/28/2004/15/2013 Inactive prn hydrocodone 10 mg-acetaminophen 325 mg tablet RxNorm: 019839 2 1-2 Tablet(s) PO QID as needed for severe pain 03/10/2013 No Stop Date Active metformin ER 500 mg 24 hr tablet,extended release RxNorm: 86 1018 1 Tablet(s) PO QD 03/06/2013 07/22/2013 Inactive clindamycin 300 mg capsule RxNorm: 338785 2 Capsule(s) PO TID 03/0503/14/2013 Inactive Zaroxolyn 2.5 mg tablet RxNorm: 855113 1 Tablet(s) PO QAM 03/05/2013 05/19/2015 Inactive amlodipine 10 mg tablet RxNorm: 553602 1 Tablet(s) PO QD 03/03/2013 0 05/25/2013 Inactive Norvasc 10 mg tablet RxNorm: 451537 1 Tablet(s) PO QD 02/28/201307/11 Inactive Celebrex 200 mg capsule RxNorm: 999219 1 Capsule(s) PO QD 02/28/2013 03/30/2013 Inactive diclofenac sodium 75 mg tablet,delayed release RxNorm: 61407 8 1 Tablet(s) PO BID for pain 02/14/2013 03/15/2013 Inactive Soma 350 mg tablet RxNorm: 662896 1 Tablet(s) PO TID as needed for spasm 02/14/2013 No Stop Date Active hydrocodone 10 mg-acetaminophen 325 mg tablet RxNorm: 741699 2 1-2 Tablet(s) PO QID as needed for severe pain 02/14/2013 No Stop Date Active Norvasc 10 mg tablet RxNorm: 580385 1 Tablet(s) PO QD 02/10/201302/09 Inactive Celebrex 200 mg capsule RxNorm: 169536 1 Capsule(s) PO QD 01/27/2013 01/26/2013 Inactive Premarin 1.25 mg tablet RxNorm: 788265 1-2 Tablet(s) PO QD 01/28/20 13 06/25/2013 Inactive alprazolam 0.5 mg tablet RxNorm: 078305 1 Tablet(s) PO BID 01/28/20 13 02/25/2013 Inactive prn amlodipine 5 mg tablet RxNorm: 630026 1 Tablet(s) PO QD 01/27/2013 Inactive Celebrex 200 mg capsule RxNorm: 236252 1 Capsule(s) PO QD 01/27/2013 02/27/2013 Inactive gabapentin 600 mg tablet RxNorm: 548546 1 Tablet(s) PO QHS 01/16/20 13 07/22/2013 Inactive Soma 350 mg tablet RxNorm: 184328 1 Tablet(s) PO TID as needed for spasm 01/15/2013 No Stop Date Active hydrocodone 10 mg-acetaminophen 325 mg tablet RxNorm: 457045 2 1-2 Tablet(s) PO QID as needed for severe pain 01/15/2013 No Stop Date Active Soma 350 mg tablet RxNorm: 157261 1 Tablet(s) PO TID as needed for spasm 01/13/2013 No Stop Date Active alprazolam 0.5 mg tablet RxNorm: 190564 1 Tablet(s) PO BID 12/31/19 13 01/26/2013 Inactive prn diclofenac sodium 75 mg tablet,delayed release RxNorm: 27645 8 1 Tablet(s) PO BID for pain 12/09/2012 01/07/2013 Inactive gabapentin 600 mg tablet RxNorm: 704239 1 Tablet(s) PO QHS 12/10/19 13 01/07/2013 Inactive hydrocodone 10 mg-acetaminophen 325 mg tablet RxNorm: 384332 2 1-2 Tablet(s) PO QID as needed for severe pain 12/02/2012 No Stop Date Active Levaquin 750 mg tablet RxNorm: 219923 1 Tablet(s) PO QD 11/21/2012 Inactive Singulair 10 mg tablet RxNorm: 316340 1 Tablet(s) PO QD 11/11/2012 Inactive clonidine 0.2 mg tablet RxNorm: 942507 1 Tablet(s) PO TID 11/11/2012 04/15/2013 Inactive alprazolam 0.5 mg tablet RxNorm: 662190 1 Tablet(s) PO BID 11/12/19 13 12/10/2012 Inactive prn Klor-Con 8 mEq tablet,extended release RxNorm: 885515 1 Tablet( s) PO BID 11/11/2012 03/04/2013 Inactive hydrocodone 10 mg-acetaminophen 325 mg tablet RxNorm: 916784 2 1-2 Tablet(s) PO QID as needed for severe pain 11/06/2012 No Stop Date Active alprazolam 0.5 mg tablet RxNorm: 266535 1 Tablet(s) PO BID 10/15/19 13 11/10/2012 Inactive prn hydrocodone-acetaminophen 10 mg-325 mg tablet RxNorm: 626077 2 1-2 Tablet(s) PO QID as needed for severe pain 10/10/2012 10/09/2012 Inactive allopurinol 300 mg tablet RxNorm: 882956 1 Tablet(s) PO QD 09/20/19 13 12/18/2012 Inactive alprazolam 0.5 mg tablet RxNorm: 413512 1 Tablet(s) PO BID 09/17/19 13 10/14/2012 Inactive prn hydrocodone-acetaminophen 10 mg-325 mg tablet RxNorm: 834345 2 1-2 Tablet(s) PO QID as needed for severe pain 08/22/2012 08/21/2012 Inactive Norvasc 10 mg tablet RxNorm: 109119 1 Tablet(s) PO QD 08/12/201201/10 Inactive Premarin 1.25 mg tablet RxNorm: 853966 1-2 Tablet(s) PO QD 07/30/20 12 12/26/2012 Inactive alprazolam 0.5 mg tablet RxNorm: 445167 1 Tablet(s) PO BID 07/29/20 12 08/27/2012 Inactive prn Klor-Con 8 mEq tablet,extended release RxNorm: 051975 1 Tablet( s) PO BID 07/29/2012 11/10/2012 Inactive hydrocodone-acetaminophen 10 mg-325 mg tablet RxNorm: 398291 2 1-2 Tablet(s) PO QID as needed for severe pain 07/29/2012 No Stop Date Active Premarin 1.25 mg tablet RxNorm: 039159 1-2 Tablet(s) PO QD 07/29/20 12 07/29/2012 Inactive clonidine 0.2 mg tablet RxNorm: 553815 1 Tablet(s) PO TID 07/29/2012 10/28/2012 Inactive ketorolac 10 mg tablet RxNorm: 115154 1 Tablet(s) PO QID prn he adache 07/18/2012 No Stop Date Active hydrocodone-acetaminophen 10 mg-325 mg tablet RxNorm: 744646 2 1-2 Tablet(s) PO QID as needed for severe pain 07/03/2012 No Stop Date Active amlodipine 5 mg tablet RxNorm: 519015 1 Tablet(s) PO QD 07/02/2012 Inactive allopurinol 300 mg tablet RxNorm: 540677 1 Tablet(s) PO QD 07/02/20 12 09/19/2012 Inactive Celebrex 200 mg capsule RxNorm: 741605 1 Capsule(s) PO QD for j oint pain 06/26/2012 10/23/2012 Inactive diclofenac sodium 75 mg tablet,delayed release RxNorm: 15338 8 1 Tablet(s) PO BID for pain 06/19/2012 09/16/2012 Inactive hydrocodone-acetaminophen 10 mg-325 mg tablet RxNorm: 383720 2 1-2 Tablet(s) PO QID as needed for severe pain 06/10/2012 No Stop Date Active alprazolam 0.5 mg tablet RxNorm: 430748 1 Tablet(s) PO BID 06/03/20 12 07/02/2012 Inactive prn ketorolac 10 mg tablet RxNorm: 785669 1 Tablet(s) PO Q8H 05/27/2012 0 01/21/2019 Inactive as needed for headache hydrocodone-acetaminophen 10 mg-325 mg tablet RxNorm: 901933 2 1-2 Tablet(s) PO QID as needed for severe pain 05/15/2012 No Stop Date Active allopurinol 300 mg tablet RxNorm: 233451 1 Tablet(s) PO QD 05/14/20 12 06/12/2012 Inactive allopurinol 300 mg tablet RxNorm: 351516 1 Tablet(s) PO QD 05/14/20 12 05/13/2012 Inactive amlodipine 5 mg tablet RxNorm: 509174 1 Tablet(s) PO QD 05/01/2012 Inactive amlodipine 5 mg Tab RxNorm: 713188 1 Tablet(s) PO QD 05/01/201204/30 Inactive Celebrex 200 mg capsule RxNorm: 245950 1 Capsule(s) PO QD for j oint pain 05/01/2012 06/25/2012 Inactive Singulair 10 mg tablet RxNorm: 912536 1 Tablet(s) PO QD 05/01/2012 Inactive alprazolam 0.5 mg tablet RxNorm: 777672 1 Tablet(s) PO BID 05/01/20 12 05/30/2012 Inactive prn Celebrex 200 mg Cap RxNorm: 673005 1 Capsule(s) PO QD for joint radu n 05/01/2012 04/30/2012 Inactive hydrocodone-acetaminophen 10 mg-325 mg tablet RxNorm: 597402 2 1-2 Tablet(s) PO QID as needed for severe pain 04/19/2012 No Stop Date Active Lasix 40 mg tablet RxNorm: 398458 1 Tablet(s) PO RAZA ramirez take potassium supplementation with this medication 04/05/2012 06/03/2012 Inactive alprazolam 0.5 mg Tab RxNorm: 392745 1 Tablet(s) PO BID 04/05/2012 Inactive prn hydrocodone-acetaminophen 10 mg-325 mg Tab RxNorm: 7778452 1-2 Tablet(s) PO QID as needed for severe pain 03/25/2012 03/24/2012 Inactive clonidine 0.2 mg Tab RxNorm: 109238 1 Tablet(s) PO TID 03/08/2012 Inactive alprazolam 0.5 mg Tab RxNorm: 337782 1 Tablet(s) PO BID 03/08/2012 Inactive prn Soma 350 mg tablet RxNorm: 081267 1 Tablet(s) PO TID for spasm 02/0903/18/2012 Inactive clonidine 0.2 mg tablet RxNorm: 964532 1 Tablet(s) PO TID 03/08/2012 07/28/2012 Inactive Celebrex 200 mg Cap RxNorm: 273021 1 Capsule(s) PO QD for joint radu n 03/01/2012 04/29/2012 Inactive amlodipine 5 mg Tab RxNorm: 781080 1 Tablet(s) PO QD 02/26/201202/24 Inactive amlodipine 5 mg Tab RxNorm: 401545 1 Tablet(s) PO QD 02/26/201204/25 Inactive Bactroban 2 % Ointment RxNorm: 262822 Application TOP QID to sores 02/23/2012 No Stop Date Active amlodipine 2.5 mg tablet RxNorm: 547597 1 Tablet(s) PO QHS 02/20/2002/25/2012 Inactive doxycycline hyclate 100 mg Cap RxNorm: 4419776 1 Capsule(s) PO BID 02/20/2012 02/29/2012 Inactive hydrocodone-acetaminophen 10 mg-325 mg Tab RxNorm: 7830826 1-2 T ablet(s) PO QID 02/08/2012 No Stop Date Active alprazolam 0.5 mg Tab RxNorm: 854643 1 Tablet(s) PO BID 02/08/2012 Inactive prn Singulair 10 mg Tab RxNorm: 375634 1 Tablet(s) PO QD 02/08/201204/30 Inactive Soma 350 mg Tab RxNorm: 421743 1 Tablet(s) PO TID for spasm 012 03/07/2012 Inactive Soma 350 mg Tab RxNorm: 514311 1 Tablet(s) PO TID for spasm 012 02/05/2012 Inactive diclofenac sodium 75 mg tablet,delayed release RxNorm: 68248 8 1 Tablet(s) PO BID for pain 02/01/2012 03/18/2012 Inactive Celebrex 200 mg Cap RxNorm: 203572 1 Capsule(s) PO QD for joint radu n 01/30/2012 02/28/2012 Inactive Lasix 40 mg Tab RxNorm: 858332 1 Tablet(s) PO QAM 01/24/2012 03/18/20 12 Inactive potassium chloride ER 20 mEq tablet,extended release(part/cr yst) RxNorm: 060630 2 Tablet(s) PO BID 01/24/2012 02/22/2012 Inactive alprazolam 0.5 mg Tab RxNorm: 823931 1 Tablet(s) PO BID 01/11/2012 Inactive prn hydrocodone-acetaminophen 10 mg-325 mg Tab RxNorm: 9713052 1-2 T ablet(s) PO QID 01/11/2012 No Stop Date Active Ambien 10 mg Tab RxNorm: 162898 1 Tablet(s) PO QHS 01/11/2012 012 Inactive Klor-Con 8 mEq Tab RxNorm: 392719 1 Tablet(s) PO BID 01/11/201201/22 Inactive diclofenac sodium 75 mg Tab, Delayed Release RxNorm: 465804 1 Tablet(s) PO BID for pain 01/10/2012 01/31/2012 Inactive Ambien 10 mg Tab RxNorm: 638258 1 Tablet(s) PO QHS 12/11/2011 012 Inactive alprazolam 0.5 mg Tab RxNorm: 970018 1 Tablet(s) PO BID 12/11/2011 Inactive prn hydrocodone 10 mg-acetaminophen 325 mg tablet RxNorm: 271238 1-2 Tablet(s) PO TID 11/28/2011 No Stop Date Active as needed for pa in - Previous quantity #240, will start dosing for #180 in April 2011 per Doctor Td. Ambien 10 mg Tab RxNorm: 213517 1 Tablet(s) PO QHS 11/09/2011 012 Inactive alprazolam 0.5 mg Tab RxNorm: 778537 1 Tablet(s) PO BID 11/09/2011 Inactive prn hydrocodone-acetaminophen 10 mg-325 mg Tab RxNorm: 7321480 1-2 T ablet(s) PO TID 11/06/2011 No Stop Date Active as needed for pain - Previous quantity #240, will start dosing for #180 in April 2011 per Doctor Td. Singulair 10 mg Tab RxNorm: 188765 1 Tablet(s) PO QD 10/13/201110/12 Inactive Singulair 10 mg Tab RxNorm: 795430 1 Tablet(s) PO QD 10/13/201102/06 Inactive hydrocodone-acetaminophen 10 mg-325 mg Tab RxNorm: 5486095 1-2 T ablet(s) PO TID 10/10/2011 10/09/2011 Inactive as needed for pain - Previous quantity #240, will start dosing for #180 in April 2011 per Doctor Td. hydrocodone-acetaminophen 10 mg-325 mg Tab RxNorm: 7431612 1-2 T ablet(s) PO TID 10/09/2011 No Stop Date Active as needed for pain - Previous quantity #240, will start dosing for #180 in April 2011 per Doctor Td. Klor-Con 8 mEq Tab RxNorm: 337762 1 Tablet(s) PO BID 10/02/201101/09 Inactive triamterene 75 mg-hydrochlorothiazide 50 mg tablet RxNorm: 3 22198 1 Tablet(s) PO QD 09/14/2011 03/06/2013 Inactive Ambien 10 mg Tab RxNorm: 135177 1 Tablet(s) PO QHS 09/14/2011 012 Inactive hydrocodone-acetaminophen 10 mg-325 mg Tab RxNorm: 6205356 1-2 T ablet(s) PO TID 09/14/2011 No Stop Date Active as needed for pain - Previous quantity #240, will start dosing for #180 in April 2011 per Doctor Td. alprazolam 0.5 mg Tab RxNorm: 964336 1 Tablet(s) PO BID 09/14/2011 Inactive prn Zithromax 500 mg Tab RxNorm: 3553106 1 Tablet(s) PO QD 09/13/201106/2012 Inactive prednisone 20 mg Tab RxNorm: 707536 1 Tablet(s) PO BID 08/31/2011 Inactive Ambien 10 mg Tab RxNorm: 593609 1 Tablet(s) PO QHS 08/17/2011 011 Inactive hydrocodone-acetaminophen 10 mg-325 mg Tab RxNorm: 9398293 1-2 T ablet(s) PO TID 08/17/2011 No Stop Date Active as needed for pain - Previous quantity #240, will start dosing for #180 in April 2011 per Doctor Td. clonidine 0.2 mg Tab RxNorm: 042195 1 Tablet(s) PO TID 08/17/201112/2011 Inactive Ambien 10 mg Tab RxNorm: 224101 1 Tablet(s) PO QHS 08/17/2011 019 Inactive alprazolam 0.5 mg Tab RxNorm: 778142 1 Tablet(s) PO BID 08/17/2011 Inactive prn hydrocodone-acetaminophen 10 mg-325 mg Tab RxNorm: 5529570 1-2 T ablet(s) PO TID 08/17/2011 08/16/2011 Inactive as needed for pain - Previous quantity #240, will start dosing for #180 in April 2011 per Doctor Td. Singulair 10 mg Tab RxNorm: 446377 1 Tablet(s) PO QD 08/17/201108/16 Inactive Klor-Con 8 mEq Tab RxNorm: 595180 1 Tablet(s) PO QD 08/17/20112011 Inactive alprazolam 0.5 mg Tab RxNorm: 220709 1 Tablet(s) PO BID 07/20/2011 Inactive prn Ambien 10 mg Tab RxNorm: 832482 1 Tablet(s) PO QHS 07/20/2011 012 Inactive Singulair 10 mg Tab RxNorm: 543860 1 Tablet(s) PO QD 07/20/201107/19 Inactive Premarin 1.25 mg tablet RxNorm: 765373 2 Tablet(s) PO QD 07/20/2011 0 01/21/2019 Inactive Premarin 1.25 mg tablet RxNorm: 915444 1-2 Tablet(s) PO QD 07/20/20 11 12/16/2011 Inactive Premarin 1.25 mg Tab RxNorm: 124268 1-2 Tablet(s) PO QD 07/06/2011 Inactive alprazolam 0.5 mg Tab RxNorm: 153752 1 Tablet(s) PO BID 06/22/2011 Inactive prn alprazolam 0.5 mg Tab RxNorm: 365507 1 Tablet(s) PO BID 06/22/2011 Inactive prn Premarin 1.25 mg Tab RxNorm: 593886 1 Tablet(s) PO QD m ay do 90 day fill if desired 06/22/2011 07/05/2011 Inactive hydrocodone-acetaminophen 10 mg-325 mg Tab RxNorm: 1001246 1-2 T ablet(s) PO TID 06/22/2011 No Stop Date Active as needed for pain - Previous quantity #240, will start dosing for #180 in April 2011 per Doctor Td. clonidine 0.2 mg Tab RxNorm: 174658 1 Tablet(s) PO TID 05/25/201103/2011 Inactive triamterene-hydrochlorothiazide 75 mg-50 mg Tab RxNorm: 3108 18 1 Tablet(s) PO QD 05/25/2011 09/13/2011 Inactive alprazolam 0.5 mg Tab RxNorm: 524987 1 Tablet(s) PO BID 05/25/2011 Inactive prn hydrocodone-acetaminophen 10 mg-325 mg Tab RxNorm: 1955183 1-2 T ablet(s) PO TID 05/25/2011 No Stop Date Active as needed for pain - Previous quantity #240, will start dosing for #180 in April 2011 per Doctor Td. Robaxin-750 750 mg Tab RxNorm: 607671 2 Tablet(s) PO QHS 05/22/2011 1 Inactive prn spasm hydrocodone-acetaminophen 10 mg-325 mg Tab RxNorm: 5460711 1-2 T ablet(s) PO TID 04/26/2011 No Stop Date Active as needed for pain - Previous quantity #240, will start dosing for #180 in April 2011 per Doctor Td. alprazolam 0.5 mg Tab RxNorm: 254497 1 Tablet(s) PO BID 04/25/2011 Inactive prn Klor-Con 8 mEq Tab RxNorm: 737367 1 Tablet(s) PO QD 03/30/20112010 Inactive Klor-Con 8 mEq Tab RxNorm: 326967 1 Tablet(s) PO QD 03/29/20112010 Inactive hydrocodone-acetaminophen 10 mg-325 mg Tab RxNorm: 2456182 1-2 T ablet(s) PO TID 03/20/2011 04/25/2011 Inactive as needed for pain - Previous quantity #240, will start dosing for #180 in April 2011 per Doctor Td. alprazolam 0.5 mg Tab RxNorm: 166177 1 Tablet(s) PO BID prn 011 03/30/2011 Inactive Ambien 10 mg Tab RxNorm: 565929 1 Tablet(s) PO QHS 03/01/2011 011 Inactive cyclobenzaprine 10 mg Tab RxNorm: 351514 1 Tablet(s) PO TID 011 03/18/2012 Inactive cyclobenzaprine 10 mg Tab RxNorm: 761629 1 Tablet(s) PO TID 011 01/08/2011 Inactive cyclobenzaprine 10 mg Tab RxNorm: 762430 1 Tablet(s) PO TID 011 12/20/2010 Inactive terbinafine 250 mg Tab RxNorm: 269014 1 Tablet(s) PO QD 12/12/2010 Inactive triamterene-hydrochlorothiazide 75 mg-50 mg Tab RxNorm: 3108 18 1 Tablet(s) PO QD 12/07/2010 06/04/2011 Inactive Klor-Con 8 8 mEq Tab RxNorm: 953293 1 Tablet(s) PO QD 12/07/201001/08 Inactive Premarin 1.25 mg Tab RxNorm: 279386 2 Tablet(s) PO QD 12/07/201001/08 Inactive clonidine 0.2 mg Tab RxNorm: 214868 1 Tablet(s) PO TID 12/07/2010 Inactive hydrocodone-acetaminophen 7.5 mg-650 mg Tab RxNorm: 079315 1 Ta blet(s) PO Q4H 12/05/2010 01/21/2019 Inactive hydrocodone-acetaminophen 7.5 mg-650 mg Tab RxNorm: 310331 1 Ta blet(s) PO Q4H 10/26/2010 11/14/2010 Inactive hydrocodone-acetaminophen 7.5 mg-650 mg Tab RxNorm: 030391 1 Ta blet(s) PO Q4H 10/13/2010 10/25/2010 Inactive hydrocodone-acetaminophen 7.5 mg-650 mg Tab RxNorm: 300523 1 Ta blet(s) PO Q4H 09/15/2010 09/12/2010 Inactive alprazolam 0.5 mg Tab RxNorm: 119944 1 Tablet(s) PO BID prn 011 09/12/2010 Inactive terbinafine 250 mg Tab RxNorm: 515374 1 Tablet(s) PO QD 09/05/2010 Inactive hydrocodone-acetaminophen 7.5 mg-650 mg Tab RxNorm: 154758 1 Ta blet(s) PO Q4H 08/29/2010 09/17/2010 Inactive alprazolam 0.5 mg Tab RxNorm: 332582 1 Tablet(s) PO BID prn 010 09/27/2010 Inactive alprazolam 0.5 mg Tab RxNorm: 631681 1 Tablet(s) PO BID prn 010 09/06/2010 Inactive Klor-Con 8 mEq Tab RxNorm: 247072 1 Tablet(s) PO QD 08/08/20102010 Inactive hydrocodone-acetaminophen 7.5 mg-650 mg Tab RxNorm: 530279 1 Ta blet(s) PO Q4H 08/08/2010 08/27/2010 Inactive Ambien 10 mg Tab RxNorm: 582960 1 Tablet(s) PO QHS 08/08/2010 Inactive clonidine 0.2 mg Tab RxNorm: 890889 1 Tablet(s) PO TID 08/08/2010 Inactive Premarin 1.25 mg Tab RxNorm: 281898 2 Tablet(s) PO QD 08/08/201009/12 Inactive Ambien 10 mg Tab RxNorm: 921117 1 Tablet(s) PO QHS 07/18/2010 Inactive alprazolam 0.5 mg Tab RxNorm: 786781 1 Tablet(s) PO BID prn 08/07/2010 Inactive hydrocodone-acetaminophen 7.5 mg-650 mg Tab RxNorm: 204347 1 Ta blet(s) PO Q4H 07/12/2010 07/31/2010 Inactive clonidine 0.2 mg Tab RxNorm: 406219 1 Tablet(s) PO TID 06/20/2010 Inactive terbinafine 250 mg Tab RxNorm: 027463 1 Tablet(s) PO QD 05/24/2010 Inactive Clonidine 0.2 mg Tab RxNorm: 492321 1 Tablet(s) PO TID 05/24/201006/2010 Inactive Ambien 10 mg Tab RxNorm: 110828 1 Tablet(s) PO QHS 05/24/2010 Inactive alprazolam 0.5 mg Tab RxNorm: 948273 1 Tablet(s) PO BID 05/24/2010 Inactive Klor-Con 8 mEq Tab RxNorm: 821849 1 Tablet(s) PO QD 05/24/20102009 Inactive alprazolam 0.5 mg Tab RxNorm: 908527 2 Tablet(s) PO QD prn 05/24/2007/17/2010 Inactive triamterene-hydrochlorothiazide 75 mg-50 mg Tab RxNorm: 3108 18 1 Tablet(s) PO QD 05/24/2010 11/19/2010 Inactive Ambien 10 mg Tab RxNorm: 407235 1 Tablet(s) PO QHS 05/23/2010 Inactive Alprazolam 0.5 mg Tab RxNorm: 302398 2 Tablet(s) PO QD prn 05/23/20 10 05/23/2010 Inactive Premarin 1.25 mg Tab RxNorm: 353990 2 Tablet(s) PO QD 05/19/201007/12 Inactive Hydrocodone-Acetaminophen 7.5 mg-650 mg Tab RxNorm: 253535 1 Ta blet(s) PO Q4H 05/19/2010 03/20/2011 Inactive Prednisone 20 mg Tab RxNorm: 972614 1 Tablet(s) PO BID 05/17/2010 Inactive Prednisone 20 mg Tab RxNorm: 423122 1 Tablet(s) PO BID 05/06/201001/2010 Inactive Premarin 1.25 mg Tab RxNorm: 190505 Tablet(s) PO 2 M-W-F, and 1 Vv-Bc-Qfw-Sun 05/05/2010 08/02/2010 Inactive Premarin 1.25 mg Tab RxNorm: 046296 Tablet(s) PO 2 M-W-F, and 1 Aa-Xc-Iwj-Sun 05/04/2010 05/04/2010 Inactive Premarin 1.25 mg Tab RxNorm: 109496 Tablet(s) PO 2 M-W-F, and 1 Lx-Hy-Yxm-Sun 05/04/2010 05/03/2010 Inactive Prednisone 20 mg Tab RxNorm: 152343 1 Tablet(s) PO BID 04/27/2010 Inactive Alprazolam 0.5 mg Tab RxNorm: 538741 2 Tablet(s) PO QD prn 04/26/20 10 05/22/2010 Inactive Clindamycin 300 mg Cap RxNorm: 684679 2 Capsule(s) PO TID 04/05/2010 04/18/2010 Inactive Terbinafine 250 mg Tab RxNorm: 066136 1 Tablet(s) PO QD 04/04/2010 Inactive Hydrocodone-Acetaminophen 7.5 mg-650 mg Tab RxNorm: 154370 1 Ta blet(s) PO Q4H 03/30/2010 04/18/2010 Inactive Avelox 400 mg Tab RxNorm: 163759 1 Tablet(s) PO QD 03/09/2010 Inactive Hydrocodone-Acetaminophen 7.5 mg-650 mg Tab RxNorm: 218034 1 Ta blet(s) PO Q4H 03/08/2010 03/27/2010 Inactive Alprazolam 0.5 mg Tab RxNorm: 068911 2 Tablet(s) PO QD prn 03/08/20 10 04/25/2010 Inactive Klor-Con 8 mEq Tab RxNorm: 806563 1 Tablet(s) PO QD when takes lasi x 03/07/2010 09/29/2019 Inactive Premarin 1.25 mg Tab RxNorm: 588039 1 Tablet(s) PO QD 03/03/201003/11 Inactive Alprazolam 0.5 mg Tab RxNorm: 712140 1 Tablet(s) PO BID PRN 010 No Stop Date Active triamterene-hydrochlorothiazide 75 mg-50 mg Tab RxNorm: 3108 18 1 Tablet(s) PO QD 02/09/2010 02/03/2011 Inactive Hydrocodone-Acetaminophen 10 mg-750 mg Tab RxNorm: 577769 1 Tablet(s) PO Q4H PRN 02/09/2010 03/20/2011 Inactive Clonidine 0.2 mg Tab RxNorm: 539159 1 Tablet(s) PO TID 01/13/201009/2009 Inactive Alprazolam 0.5 mg Tab RxNorm: 641814 1 Tablet(s) PO BID PRN 010 01/12/2010 Inactive Hydrocodone-Acetaminophen 10 mg-750 mg Tab RxNorm: 024465 1 Tablet(s) PO Q4H PRN 01/13/2010 01/12/2010 Inactive ANGELIQ 1 mg-0.5 mg Tab RxNorm: 3965243 1 Tablet(s) PO QD 12/27/2009 01/23/2010 Inactive Lasix 40 mg Tab RxNorm: 201378 1 Tablet(s) PO QAM 12/14/2009 06/11/20 10 Inactive Vitamin B12 1000mcg Tablet RxNorm: 1 Tablet(s) PO QD No Start Date Active cyclobenzaprine 10 mg tablet RxNorm: 952236 1 Tablet(s) PO TID as needed DO NOT USE WITH BACLOFEN No Start Date Active Vitamin D 5,000 unit Tab RxNorm: 1 Tablet(s) PO QD No Start Date Active vitamin E (dl, acetate) 400 unit Cap RxNorm: 679207 1 Capsule(s ) PO QD No Start Date Active Benadryl 25 mg Cap RxNorm: 7872035 Capsule(s) PO PRN No Start Date Inactive amitriptyline 100 mg tablet RxNorm: 263894 1 Tablet(s) PO QHS No St art Date 11/27/2016 Inactive Zithromax Z-Dustin 250 mg tablet RxNorm: 861878 Tablet(s) PO as di rected No Start Date 07/22/2013 Inactive Klor-Con 8 mEq tablet,extended release RxNorm: 738757 1 Tablet( s) PO BID No Start Date 07/28/2012 Inactive scopolamine 1.5 mg 72 hr Transderm Patch RxNorm: 527175 Application TD Q72H for motion sickness No Start Date 05/25/2013 Inactive Klonopin 1 mg tablet RxNorm: 633469 1-2 Tablet(s) PO QHS as nee ded for sleep No Start Date 06/20/2015 Inactive Klor-Con M20 mEq tablet,extended release RxNorm: 851832 2 Tablet(s) PO BID to use with lasix No Start Date 11/11/2013 Inactive Bystolic 5 mg tablet RxNorm: 329833 1 Tablet(s) PO QD No Start Date 1 Inactive Bystolic 10 mg tablet RxNorm: 608832 1 Tablet(s) PO BID No Start Da te 07/06/2015 Inactive Premarin 1.25 mg Tab RxNorm: 625622 Tablet(s) PO 2 -W-, and 1 Ap-Mm-Csw-Sun No Start Date 05/03/2010 Inactive baclofen 20 mg tablet RxNorm: 413580 1 Tablet(s) PO TID as needed for muscle spasm No Start Date 07/22/2015 Inactive hydrocodone-acetaminophen 7.5 mg-650 mg Tab RxNorm: 275739 1 Tablet(s) PO Q4H as needed for pain No Start Date 03/20/2011 Inactive albuterol sulfate 1.25 mg/3 mL Neb Solution RxNorm: 781338 1 Unit Dose INH Q4H 2boxes No Start Date 09/06/2015 Inactive Butrans 20 mcg/hour Transderm Patch RxNorm: 278638 1 TD WEEKLY apply to skin weekly after removing previous. No Start Date 07/22/2013 Inactive Medrol (Dustin) 4 mg tablets in a dose pack RxNorm: 830842 Tablet(s) PO As Directed No Start Date 07/30/2016 Inactive hydrocodone-acetaminophen 10 mg-325 mg Tab RxNorm: 5727132 1-2 Tablet(s) PO TID as needed for pain No Start Date 03/19/2011 Inactive Klonopin 1 mg tablet RxNorm: 853151 1 Tablet(s) PO QHS No Start Date 02/28/2016 Inactive honey topical RxNorm: topical No Start Date 06/16/2018 Inactive Clonidine 0.2 mg Tab RxNorm: 630960 1 Tablet(s) PO TID No Start Date 01/12/2010 Inactive ketorolac 10 mg tablet RxNorm: 284412 1 Tablet(s) PO Q8H No Start D ate 03/18/2012 Inactive as needed for headache Singulair 10 mg Tab RxNorm: 437531 1 Tablet(s) PO QD No Start Date Inactive Premarin 1.25 mg Tab RxNorm: 154194 1 Tablet(s) PO QD No Start Date 1 Inactive Flonase 50 mcg/Actuation Nasal [place] RxNorm: 4011762 1 [place] CECELIA AL BID No Start Date 03/18/2012 Inactive Terbinafine 250 mg Tab RxNorm: 089561 1 Tablet(s) PO QD No Start Da te 04/03/2010 Inactive Fexofenadine 180 mg Tab RxNorm: 0841315 1 Tablet(s) PO QD No Start Date 09/06/2015 Inactive baclofen 20 mg tablet RxNorm: 529820 1 Tablet(s) PO TID as needed N o Start Date 05/25/2014 Inactive Diovan 160 mg Tab RxNorm: 530716 1 Tablet(s) PO QD No Start Date 09/12 Inactive mupirocin 2 % topical ointment RxNorm: 065793 1 Application TOP QID No Start Date 04/25/2016 Inactive ZOFRAN ODT 4 mg Tab, Rapid Dissolve RxNorm: 039295 1 Tablet(s) PO Q4H No Start Date 03/18/2012 Inactive as needed for nausea and vomiting Alprazolam 0.5 mg Tab RxNorm: 976454 1 Tablet(s) PO BID PRN No Star t Date 01/12/2010 Inactive cyclobenzaprine 10 mg tablet RxNorm: 289752 1 Tablet(s) PO TID as needed for muscle spasm No Start Date 10/08/2017 Inactive Albuterol 0.083% Aerosol Solution RxNorm: 1 Appl ication INH Q4H Use one ampule every 4 hrs with nebulizer as needed for shortness of breath. No Start Date 10/09/2010 Inactive lorazepam 1 mg tablet RxNorm: 907271 1 1/2 Tablet(s) PO QHS No Star t Date 02/02/2016 Inactive Melatonin 3 mg Tab RxNorm: 423212 Tablet(s) PO PRN No Start Date 07/11 Inactive Medrol (Dustin) 4 mg Tabs in a Dose Pack RxNorm: 584651 Tablet(s) PO N o Start Date 11/28/2010 Inactive lorazepam 1 mg tablet RxNorm: 612713 1 Tablet(s) PO QHS as need ed for sleep No Start Date 01/30/2016 Inactive hydrocodone-acetaminophen 10 mg-325 mg Tab RxNorm: 6361523 1-2 Tablet(s) PO QID as needed for severe pain No Start Date 03/24/2012 Inactive celecoxib 200 mg capsule RxNorm: 428311 1 Capsule(s) PO BID No Star t Date 06/26/2019 Inactive amlodipine 5 mg-benazepril 20 mg capsule RxNorm: 180133 1 Capsu le(s) PO QD No Start Date 04/10/2017 Inactive Bystolic 20 mg tablet RxNorm: 539389 1/2 Tablet(s) PO QAM No Start Date 01/23/2016 Inactive Bystolic 20 mg tablet RxNorm: 036673 1 Tablet(s) PO QAM No Start Da te 04/25/2016 Inactive Ambien 10 mg Tab RxNorm: 087222 1 Tablet(s) PO QHS No Start Date 05/11 Inactive Klor-Con 8 mEq Tab RxNorm: 694040 1 Tablet(s) PO QD when takes lasix No Start Date 03/06/2010 Inactive aspirin 81 mg tablet RxNorm: 145222 1 Tablet(s) PO QD No Start Date 0 01/29/2018 Inactive hydrocodone-acetaminophen 10 mg-325 mg Tab RxNorm: 9389052 1-2 T ablet(s) PO QID No Start Date 01/10/2012 Inactive Bystolic 10 mg tablet RxNorm: 251620 1 Tablet(s) PO QAM take one daily in the morning. No Start Date 05/28/2013 Inactive nystatin 100,000 unit/mL Oral Susp RxNorm: 259549 5 Milliliter( s) PO QID No Start Date 03/18/2012 Inactive swish and spit scopolamine 1.5 mg 72 hr Transderm Patch RxNorm: 326366 1 Unit Dose TD Q72H for motion sickness No Start Date 12/23/2013 Inactive Hydrocodone-Acetaminophen 10 mg-750 mg Tab RxNorm: 478763 1 Tablet(s) PO Q4H PRN No Start Date 01/12/2010 Inactive Soma 350 mg tablet RxNorm: 459769 1 Tablet(s) PO TID as needed for spasm No Start Date 01/12/2013 Inactive baclofen 10 mg tablet RxNorm: 660148 1 Tablet(s) PO TID as needed for muscle spasm No Start Date 09/18/2019 Inactive Soma 350 mg Tab RxNorm: 814933 1 Tablet(s) PO TID for spasm No Star t Date 01/31/2012 Inactive Co Q-10 400 mg capsule RxNorm: 732967 1 Capsule(s) PO QD No Start D ate 01/21/2019 Inactive nystatin 100,000 unit/gram topical cream RxNorm: 885341 Applica tion TOP BID No Start Date 03/22/2015 Inactive Exforge 5 mg-160 mg Tab RxNorm: 716459 1 Tablet(s) PO QD No Start D ate 10/09/2010 Inactive Hydrocodone-Acetaminophen 7.5 mg-650 mg Tab RxNorm: 562050 1 Ta blet(s) PO Q4H No Start Date 03/07/2010 Inactive Robaxin-750 750 mg Tab RxNorm: 162458 1-2 Tablet(s) PO TID prn spasm No Start Date 05/21/2011 Inactive amlodipine 5 mg tablet RxNorm: 114104 1 Tablet(s) PO QHS No Start D ate 09/29/2015 Inactive oxycodone-acetaminophen 10 mg-325 mg tablet RxNorm: 2904386 1-2 Tablet(s) PO Q6H No Start Date 06/16/2018 Inactive Triamterene-Hydrochlorothiazide 75 mg-50 mg Tab RxNorm: 3108 18 1 Tablet(s) PO QD No Start Date 02/08/2010 Inactive Alprazolam 0.5 mg Tab RxNorm: 045911 2 Tablet(s) PO QD prn No Start Date 03/07/2010 Inactive Bystolic 20 mg tablet RxNorm: 163739 1 Tablet(s) PO QAM No Start Da te 08/17/2015 Inactive ketorolac 10 mg tablet RxNorm: 263651 1 Tablet(s) PO QID prn he adache No Start Date 07/17/2012 Inactive acyclovir 800 mg Tab RxNorm: 540139 1 Tablet(s) PO BID No Start Date 03/18/2012 Inactive duloxetine 60 mg capsule,delayed release RxNorm: 361230 1 Capsu le(s) PO QD No Start Date 09/29/2015 Inactive Norvasc 5 mg tablet RxNorm: 808369 1 Tablet(s) PO QHS No Start Date 1 10/18/2014 Inactive promethazine 25 mg tablet RxNorm: 466501 1 Tablet(s) PO Q8H use sparingly No Start Date 07/22/2013 Inactive alprazolam 0.5 mg tablet RxNorm: 317029 3 Tablet(s) PO QHS No Start Date 06/06/2015 Inactive Lunesta 3 mg tablet RxNorm: 619923 1 Tablet(s) PO QHS No Start Date 0 09/20/2017 Inactive hydrocodone-acetaminophen 10 mg-325 mg Tab RxNorm: 4072244 1-2 Tablet(s) PO TID as needed for pain No Start Date 12/10/2011 Inactive Coricidin HBP Cough & Cold 4 mg-30 mg Tab RxNorm: 6682411 Tablet (s) PO PRN No Start Date 10/09/2010 Inactive Bactroban 2 % Ointment RxNorm: 847616 Application TOP QID to so res No Start Date 02/22/2012 Inactive Flonase 50 mcg/actuation Nasal [place] RxNorm: 588965 2 [place] QHS No Start Date 03/03/2014 Inactive Medication Administered No Medication Administered data Immunizations Vaccine Codes Date Status Tetanus, Diptheria, Pertussis CVX: 115 02/27/2014 Results Observation Observation Code Item Item Code Result Date S vice Location COMPREHENSIVE METABOLIC 87169 AST 15 U/L 2019 Unknown COMPREHENSIVE METABOLIC 21741 ALT 13 U/L 2019 Unknown COMPREHENSIVE METABOLIC 52369 BUN 12 mg/dL 2019 Unknown COMPREHENSIVE METABOLIC 96876 ALBUMIN 3.9 g/dL 2019 Unknown COMPREHENSIVE METABOLIC 86472 CHLORIDE 97 mmol/L 2019 Unknown COMPREHENSIVE METABOLIC 37998 Bili Total 0.4 mg/dL 09/29 Unknown COMPREHENSIVE METABOLIC 04810 ALK PHOS 130 U/L 2019 Unknown COMPREHENSIVE METABOLIC 59967 SODIUM 136 mmol/L 09/29 Unknown COMPREHENSIVE METABOLIC 33188 CREATININE 0.92 mg/dL 09/11 Unknown COMPREHENSIVE METABOLIC 44781 CALCIUM 9.1 mg/dL 2019 Unknown COMPREHENSIVE METABOLIC 95325 POTASSIUM 4.4 mmol/L 09/29 Unknown COMPREHENSIVE METABOLIC 43822 Total Protein 6.2 g/dL Unknown COMPREHENSIVE METABOLIC 84723 Glucose 391 mg/dL 2019 Unknown COMPREHENSIVE METABOLIC 55704 Bicarbonate 30 mmol/L 09/11 Unknown COMPREHENSIVE METABOLIC 93967 AGAP 9 mmol/L 2019 Unknown MEAN GLUC 9223067 Calc Mean Gluc 332 mg/dL 09/29/2019 Unkn own COMPLETE BLOOD COUNT [id number] WBC 7.0 10e9/L 09/29/19 Unknown COMPLETE BLOOD COUNT 7882022 RBC 4.69 10e12/L 2019 Unknown COMPLETE BLOOD COUNT 0295525 HEMOGLOBIN 14.6 g/dL 09/29/19 Unknown COMPLETE BLOOD COUNT 6986566 HEMATOCRIT 45.2 % 09/29/19 Unknown COMPLETE BLOOD COUNT 2404421 MCV 96.4 fL 0 Unknown COMPLETE BLOOD COUNT 1650707 MCH 31.1 pg 0 Unknown COMPLETE BLOOD COUNT 9155945 MCHC 32.3 g/dL 0 Unknown COMPLETE BLOOD COUNT 1593635 PLATELET COUNT 209 10e9/L Unknown COMPLETE BLOOD COUNT 6182986 Mean Plt Volume 9.8 fL Unknown COMPLETE BLOOD COUNT 7564759 Neut Auto 48.1 % 0 Unknown COMPLETE BLOOD COUNT 3469408 Lymph Auto 36.5 % 09/29/19 20 Unknown COMPLETE BLOOD COUNT 2224631 Adams Auto 8.6 % 0 Unknown COMPLETE BLOOD COUNT 5112217 RDW 13.4 % 0 Unknown COMPLETE BLOOD COUNT 2573483 Eos Auto 6.5 % 0 Unknown COMPLETE BLOOD COUNT 0234902 Baso Auto 0.3 % 0 Unknown COMPLETE BLOOD COUNT 1056485 Neutrophil Abs 3.37 10e9/L Unknown COMPLETE BLOOD COUNT 8425648 Lymphocyte Abs 2.56 10e9/L Unknown COMPLETE BLOOD COUNT 0888463 Monocyte Abs 0.60 10e9/L 09/11 Unknown COMPLETE BLOOD COUNT 2662166 Eosinophil Abs 0.46 10e9/L Unknown COMPLETE BLOOD COUNT 2900556 RDW-SD 45.9 fL 0 Unknown COMPLETE BLOOD COUNT [id number] Basophil Abs 0.02 10e9/L 09/11 Unknown LIPID GROUP 45931 Cholesterol 248 mg/dL 09/29/2019 Unkno wn LIPID GROUP 84955 Triglyceride 898 mg/dL 09/29/2019 Unkn own LIPID GROUP 98907 HDL CHOLESTEROL 41 mg/dL 09/29/2019 U nknown LIPID GROUP 12977 Chol/HDL Ratio 6.05 ratio 09/29/2019 U nknown LIPID GROUP 35105 NON-HDL Chol 207 mg/dL 09/29/2019 Unkn own LIPID GROUP 59651 LDL Cholesterol N/A Trig >400 020 Unknown GLYCOSYLATED HEMOGLOBIN TEST 37022 Hgb A1c 18017-0 13.2 % 0 09/29/2019 Unknown FREE T4 59537 T4 Free 0.75 ng/dL 09/29/2019 Unknown GFR CALC 7554785 GFR Non Afr Amr >60 mL/min 09/29/2019 Un known GFR CALC 1954866 GFR Afr Amr >60 mL/min 09/29/2019 Unknow n THYROID STIMULATING HORMONE 52217 TSH 4.245 uIU/mL 09/29/2019 Unknown COMPLETE BLOOD COUNT 7458434 WBC 10.7 10e9/L 018 Unknown COMPLETE BLOOD COUNT 2228882 RBC 4.59 10e12/L 2017 Unknown COMPLETE BLOOD COUNT 4432927 HEMOGLOBIN 14.8 g/dL 12/11/19 18 Unknown COMPLETE BLOOD COUNT 0975082 HEMATOCRIT 44.9 % 12/11/19 18 Unknown COMPLETE BLOOD COUNT 5535778 MCV 97.8 fL 8 Unknown COMPLETE BLOOD COUNT 1293939 MCH 32.2 pg 8 Unknown COMPLETE BLOOD COUNT 7097279 MCHC 33.0 g/dL 8 Unknown COMPLETE BLOOD COUNT 3457671 PLATELET COUNT 261 10e9/L 10/2017 Unknown COMPLETE BLOOD COUNT 2087468 Mean Plt Volume 9.5 fL 10/2017 Unknown COMPLETE BLOOD COUNT 6002729 Neut Auto 59.9 % 8 Unknown COMPLETE BLOOD COUNT 6643653 Lymph Auto 27.4 % 12/11/19 18 Unknown COMPLETE BLOOD COUNT 2694532 Adams Auto 8.2 % 8 Unknown COMPLETE BLOOD COUNT 8495243 RDW 13.3 % 8 Unknown COMPLETE BLOOD COUNT 2552182 Eos Auto 4.1 % 8 Unknown COMPLETE BLOOD COUNT 1090556 Baso Auto 0.4 % 8 Unknown COMPLETE BLOOD COUNT 4593064 Neutrophil Abs 6.41 10e9/L Unknown COMPLETE BLOOD COUNT 8672090 Lymphocyte Abs 2.93 10e9/L Unknown COMPLETE BLOOD COUNT 4995849 Monocyte Abs 0.88 10e9/L 10/2017 Unknown COMPLETE BLOOD COUNT 9148001 Eosinophil Abs 0.44 10e9/L Unknown COMPLETE BLOOD COUNT 7625231 RDW-SD 46.2 fL 8 Unknown COMPLETE BLOOD COUNT 6366490 Basophil Abs 0.04 10e9/L 10/2017 Unknown THYROID STIMULATING HORMONE 43243 TSH 4.015 uIU/mL 12/10/2017 Unknown COMPREHENSIVE METABOLIC 05087 AST 25 U/L 2017 Unknown COMPREHENSIVE METABOLIC 62439 ALT 17 U/L 2017 Unknown COMPREHENSIVE METABOLIC 41600 BUN 19 mg/dL 2017 Unknown COMPREHENSIVE METABOLIC 95818 ALBUMIN 4.0 g/dL 2017 Unknown COMPREHENSIVE METABOLIC 35669 CHLORIDE 91 mmol/L 2017 Unknown COMPREHENSIVE METABOLIC 06769 Bili Total 0.5 mg/dL 12/10 Unknown COMPREHENSIVE METABOLIC 93929 ALK PHOS 75 U/L 2017 Unknown COMPREHENSIVE METABOLIC 52068 SODIUM 136 mmol/L 12/10 Unknown COMPREHENSIVE METABOLIC 14700 CREATININE 1.05 mg/dL 10/2017 Unknown COMPREHENSIVE METABOLIC 04841 CALCIUM 8.9 mg/dL 2017 Unknown COMPREHENSIVE METABOLIC 11389 POTASSIUM 3.4 mmol/L 12/10 Unknown COMPREHENSIVE METABOLIC 22474 Total Protein 6.5 g/dL Unknown COMPREHENSIVE METABOLIC 63526 Glucose 138 mg/dL 2017 Unknown COMPREHENSIVE METABOLIC 91310 Bicarbonate 35 mmol/L 10/2017 Unknown COMPREHENSIVE METABOLIC 89986 AGAP 10 mmol/L 2017 Unknown MEAN GLUC 9856871 Calc Mean Gluc 171 mg/dL 12/10/2017 Unkn own LIPID GROUP 45605 Cholesterol 204 mg/dL 12/10/2017 Unkno wn LIPID GROUP 70157 Triglyceride 411 mg/dL 12/10/2017 Unkn own LIPID GROUP 81830 HDL CHOLESTEROL 50 mg/dL 12/10/2017 U nknown LIPID GROUP 74560 Chol/HDL Ratio 4.08 ratio 12/10/2017 U nknown LIPID GROUP 48620 NON-HDL Chol 154 mg/dL 12/10/2017 Unkn own LIPID GROUP 28045 LDL Cholesterol N/A Trig >400 018 Unknown GLYCOSYLATED HEMOGLOBIN TEST 96158 Hgb A1c 00771-7 7.6 % 0 12/10/2017 Unknown FREE T4 88250 T4 Free 1.40 ng/dL 12/10/2017 Unknown GFR CALC 0155390 GFR Non Afr Amr 55 mL/min 12/10/2017 Unk nown GFR CALC 0510593 GFR Afr Amr >60 mL/min 12/10/2017 Unknow n GFR CALC 8877923 GFR Non Afr Amr 48 mL/min 06/28/2017 Unk nown GFR CALC 9966786 GFR Afr Amr 59 mL/min 06/28/2017 Unknown COMPREHENSIVE METABOLIC 40725 AST 32 U/L 2016 Unknown COMPREHENSIVE METABOLIC 14556 ALT 22 U/L 2016 Unknown COMPREHENSIVE METABOLIC 95822 BUN 23 mg/dL 2016 Unknown COMPREHENSIVE METABOLIC 88023 ALBUMIN 4.7 g/dL 2016 Unknown COMPREHENSIVE METABOLIC 76363 CHLORIDE 89 mmol/L 2016 Unknown COMPREHENSIVE METABOLIC 19555 Bili Total 0.5 mg/dL 06/28 Unknown COMPREHENSIVE METABOLIC 19359 ALK PHOS 90 U/L 2016 Unknown COMPREHENSIVE METABOLIC 55796 SODIUM 135 mmol/L 06/28 Unknown COMPREHENSIVE METABOLIC 01832 CREATININE 1.18 mg/dL 06/10 Unknown COMPREHENSIVE METABOLIC 45611 CALCIUM 9.7 mg/dL 2016 Unknown COMPREHENSIVE METABOLIC 52839 POTASSIUM 3.5 mmol/L 06/28 Unknown COMPREHENSIVE METABOLIC 04630 Total Protein 7.7 g/dL Unknown COMPREHENSIVE METABOLIC 30435 Glucose 129 mg/dL 2016 Unknown COMPREHENSIVE METABOLIC 06201 Bicarbonate 34 mmol/L 06/10 Unknown COMPREHENSIVE METABOLIC 49743 AGAP 12 mmol/L 2016 Unknown LIPID GROUP 76838 HDL TEST 64 MG/DL 08/27/2014 Unknown LIPID GROUP 01600 TRIG 222 MG/DL 08/27/2014 Unknown LIPID GROUP 56983 TEST LDL 209 MG/DL 08/27/2014 Unknown LIPID GROUP 80339 CHOL 317 MG/DL 08/27/2014 Unknown LIPID GROUP 73724 RCHOL/HDL 4.95 RATIO 08/27/2014 Unknow n LIPID GROUP 92738 NON-HDL CH 253 MG/DL 08/27/2014 Unknow n GFR CALC 4494847 GFR AA >60 ML/MIN 08/27/2014 Unknown GFR CALC 6171099 GFR NON-AA >60 ML/MIN 08/27/2014 Unknown COMPLETE BLOOD COUNT 8250384 WBC 7.0 10e9/L 08/27/20 14 Unknown COMPLETE BLOOD COUNT 2746349 RBC 4.98 10e12/L 2013 Unknown COMPLETE BLOOD COUNT 2052487 HGB 15.6 g/dL 4 Unknown COMPLETE BLOOD COUNT 4856516 HCT DET 46.5 % 4 Unknown COMPLETE BLOOD COUNT 0755054 MCV 93.4 fL 4 Unknown COMPLETE BLOOD COUNT 1974311 MCH 31.3 pg 4 Unknown COMPLETE BLOOD COUNT 1586138 MCHC 33.5 g/dL 4 Unknown COMPLETE BLOOD COUNT 8523385 PLT 309 10e9/L 08/27/20 14 Unknown COMPLETE BLOOD COUNT 4802357 MPV 9.6 fL 4 Unknown COMPLETE BLOOD COUNT 0830652 CADEN % 57.2 % 4 Unknown COMPLETE BLOOD COUNT 9284147 LY % 33.2 % 4 Unknown COMPLETE BLOOD COUNT 8954574 MON % 7.3 % 4 Unknown COMPLETE BLOOD COUNT 8636675 EOS % 2.0 % 4 Unknown COMPLETE BLOOD COUNT 0981617 BASO % 0.3 % 4 Unknown COMPLETE BLOOD COUNT 7714127 RDW 13.7 % 4 Unknown COMPLETE BLOOD COUNT 6435435 ABS CADEN 4.00 10e9/L 014 Unknown COMPLETE BLOOD COUNT 9516906 ABS LYMPH 2.32 10e9/L 014 Unknown COMPLETE BLOOD COUNT 2305597 ABS MONO 0.51 10e9/L 014 Unknown COMPLETE BLOOD COUNT 8718061 ABS EOS 0.14 10e9/L 014 Unknown COMPLETE BLOOD COUNT 0449926 ABS BASO 0.02 10e9/L 014 Unknown COMPLETE BLOOD COUNT 6173768 RDW-SD 45.1 fL 4 Unknown COMPREHENSIVE METABOLIC 74057 AST 13 U/L 2013 Unknown COMPREHENSIVE METABOLIC 11634 ALT 11 IU/L 2013 Unknown COMPREHENSIVE METABOLIC 24119 BUN 23 MG/DL 2013 Unknown COMPREHENSIVE METABOLIC 36112 ALBUMIN 4.4 GM/DL 2013 Unknown COMPREHENSIVE METABOLIC 65023 CHLORIDE 99 MMOL/L 2013 Unknown COMPREHENSIVE METABOLIC 77857 BILI TOT 0.5 MG/DL 2013 Unknown COMPREHENSIVE METABOLIC 68437 ALK PHOS 56 U/L 2013 Unknown COMPREHENSIVE METABOLIC 38592 SODIUM 138 MMOL/L 08/27 Unknown COMPREHENSIVE METABOLIC 02178 CREATININE 0.95 MG/DL 08/10 Unknown COMPREHENSIVE METABOLIC 34631 CALCIUM 9.8 MG/DL 2013 Unknown COMPREHENSIVE METABOLIC 11301 POTASSIUM 3.5 MMOL/L 08/27 Unknown COMPREHENSIVE METABOLIC 39929 PROT TOT 6.8 GM/DL 2013 Unknown COMPREHENSIVE METABOLIC 68208 Glucose 90 MG/DL 2013 Unknown COMPREHENSIVE METABOLIC 32119 BICARB 34 MMOL/L 2013 Unknown COMPREHENSIVE METABOLIC 55756 ANION GAP 5 MEQ/L 2013 Unknown LIPASE 20039 LIPASE 11 IU/L 07/21/2014 Unknown AMYLASE 32617 AMYLASE 39 IU/L 07/21/2014 Unknown HEMOGLOBIN A1C (GLYCOSYLATED) 4324377 A1C HPLC 81059-7 6.2 % 03/05/2013 Unknown THYROID STIMULATING HORMONE 34952 TSH 6.986 uIU/ML 03/05/2013 Unknown COMPLETE BLOOD COUNT 2021155 WBC 12.7 10e9/L 013 Unknown COMPLETE BLOOD COUNT 4081322 RBC 4.53 10e12/L 2012 Unknown COMPLETE BLOOD COUNT 2382618 HGB 14.7 g/dL 3 Unknown COMPLETE BLOOD COUNT 5502862 HCT DET 43.1 % 3 Unknown COMPLETE BLOOD COUNT 2923730 MCV 95.1 fL 3 Unknown COMPLETE BLOOD COUNT 7508927 MCH 32.5 pg 3 Unknown COMPLETE BLOOD COUNT 0670604 MCHC 34.1 g/dL 3 Unknown COMPLETE BLOOD COUNT 0335664 PLT 346 10e9/L 03/05/20 13 Unknown COMPLETE BLOOD COUNT 4378825 MPV 9.5 fL 3 Unknown COMPLETE BLOOD COUNT 5070755 CADEN % 67.6 % 3 Unknown COMPLETE BLOOD COUNT 9059037 LY % 22.1 % 3 Unknown COMPLETE BLOOD COUNT 5747505 MON % 6.6 % 3 Unknown COMPLETE BLOOD COUNT 6290724 EOS % 3.3 % 3 Unknown COMPLETE BLOOD COUNT 7932555 BASO % 0.4 % 3 Unknown COMPLETE BLOOD COUNT 6457185 RDW 14.0 % 3 Unknown COMPLETE BLOOD COUNT 5033094 ABS CADEN 8.59 10e9/L 013 Unknown COMPLETE BLOOD COUNT 7666662 ABS LYMPH 2.81 10e9/L 013 Unknown COMPLETE BLOOD COUNT 8614219 ABS MONO 0.84 10e9/L 013 Unknown COMPLETE BLOOD COUNT 2055742 ABS EOS 0.42 10e9/L 013 Unknown COMPLETE BLOOD COUNT 4709612 ABS BASO 0.05 10e9/L 013 Unknown COMPLETE BLOOD COUNT 8451892 RDW-SD 46.0 fL 06/26/201 3 Unknown FREE T4 60178 FREE T4 1.14 NG/DL 03/05/2013 Unknown COMPREHENSIVE METABOLIC 34883 AST 17 U/L 2012 Unknown COMPREHENSIVE METABOLIC 32264 ALT 12 IU/L 2012 Unknown COMPREHENSIVE METABOLIC 77735 BUN 24 MG/DL 2012 Unknown COMPREHENSIVE METABOLIC 85143 ALBUMIN 4.2 GM/DL 2012 Unknown COMPREHENSIVE METABOLIC 09529 CHLORIDE 93 MMOL/L 2012 Unknown COMPREHENSIVE METABOLIC 28264 BILI TOT 0.5 MG/DL 2012 Unknown COMPREHENSIVE METABOLIC 00986 ALK PHOS 75 U/L 2012 Unknown COMPREHENSIVE METABOLIC 35616 SODIUM 141 MMOL/L 03/05 Unknown COMPREHENSIVE METABOLIC 24750 CREATININE 1.36 MG/DL 02/09 Unknown COMPREHENSIVE METABOLIC 19004 CALCIUM 9.2 MG/DL 2012 Unknown COMPREHENSIVE METABOLIC 96432 POTASSIUM 3.1 MMOL/L 03/05 Unknown COMPREHENSIVE METABOLIC 83616 PROT TOT 6.9 GM/DL 2012 Unknown COMPREHENSIVE METABOLIC 40854 Glucose 123 MG/DL 2012 Unknown COMPREHENSIVE METABOLIC 96747 BICARB 36 MMOL/L 2012 Unknown COMPREHENSIVE METABOLIC 62759 ANION GAP 12 MEQ/L 2012 Unknown GFR CALC 5506666 GFR AA 51.0L ML/MIN 03/05/2013 Unknow n GFR CALC 2754282 GFR NON-AA 42.0L ML/MIN 03/05/2013 Unkno wn COMPREHENSIVE METABOLIC 99323 AST 14 U/L 2012 Unknown COMPREHENSIVE METABOLIC 91925 ALT 11 IU/L 2012 Unknown COMPREHENSIVE METABOLIC 14728 BUN 16 MG/DL 2012 Unknown COMPREHENSIVE METABOLIC 70183 ALBUMIN 4.2 GM/DL 2012 Unknown COMPREHENSIVE METABOLIC 87769 CHLORIDE 98 MMOL/L 2012 Unknown COMPREHENSIVE METABOLIC 11671 BILI TOT 0.4 MG/DL 2012 Unknown COMPREHENSIVE METABOLIC 61948 ALK PHOS 77 U/L 2012 Unknown COMPREHENSIVE METABOLIC 77721 SODIUM 139 MMOL/L 09/25 Unknown COMPREHENSIVE METABOLIC 58075 CREATININE 0.86 MG/DL 09/10 Unknown COMPREHENSIVE METABOLIC 36605 CALCIUM 9.5 MG/DL 2012 Unknown COMPREHENSIVE METABOLIC 26782 POTASSIUM 3.8 MMOL/L 09/25 Unknown COMPREHENSIVE METABOLIC 89069 PROT TOT 6.8 GM/DL 2012 Unknown COMPREHENSIVE METABOLIC 58889 Glucose 91 MG/DL 2012 Unknown COMPREHENSIVE METABOLIC 62449 BICARB 32 MMOL/L 2012 Unknown COMPREHENSIVE METABOLIC 23924 ANION GAP 9 MEQ/L 2012 Unknown FREE T4 93845 FREE T4 0.98 NG/DL 09/25/2012 Unknown THYROID STIMULATING HORMONE 33509 TSH 1.736 uIU/ML 09/25/2012 Unknown C-REACTIVE PROTEIN (CRP) QUANT 04351 CRP 2.3 MG/DL 09/25/2012 Unknown COMPLETE BLOOD COUNT 8534581 WBC 11.9 10e9/L 013 Unknown COMPLETE BLOOD COUNT 6340708 RBC 4.87 10e12/L 2012 Unknown COMPLETE BLOOD COUNT 3179904 HGB 15.1 g/dL 3 Unknown COMPLETE BLOOD COUNT 6056625 HCT DET 44.8 % 3 Unknown COMPLETE BLOOD COUNT 5663706 MCV 92.0 fL 3 Unknown COMPLETE BLOOD COUNT 7120026 MCH 31.0 pg 3 Unknown COMPLETE BLOOD COUNT 7462562 MCHC 33.7 g/dL 3 Unknown COMPLETE BLOOD COUNT 4496798 PLT 343 10e9/L 09/25/19 13 Unknown COMPLETE BLOOD COUNT 8529109 MPV 9.0 fL 3 Unknown COMPLETE BLOOD COUNT 0680888 CADEN % 68.2 % 3 Unknown COMPLETE BLOOD COUNT 0443285 LY % 22.4 % 3 Unknown COMPLETE BLOOD COUNT 5299695 MON % 6.4 % 3 Unknown COMPLETE BLOOD COUNT 7240851 EOS % 2.7 % 3 Unknown COMPLETE BLOOD COUNT 1672129 BASO % 0.3 % 3 Unknown COMPLETE BLOOD COUNT 5915708 RDW 13.8 % 3 Unknown COMPLETE BLOOD COUNT 3057855 ABS CADEN 8.12 10e9/L 013 Unknown COMPLETE BLOOD COUNT 8119417 ABS LYMPH 2.67 10e9/L 013 Unknown COMPLETE BLOOD COUNT 5696320 ABS MONO 0.76 10e9/L 013 Unknown COMPLETE BLOOD COUNT 5087936 ABS EOS 0.32 10e9/L 013 Unknown COMPLETE BLOOD COUNT 4844005 ABS BASO 0.04 10e9/L 013 Unknown COMPLETE BLOOD COUNT 9380697 RDW-SD 45.6 fL 3 Unknown GFR CALC 7887174 GFR AA >60 ML/MIN 09/25/2012 Unknown GFR CALC 5126074 GFR NON-AA >60 ML/MIN 09/25/2012 Unknown ERYTHROCYTE SEDIMENTATION RATE 48015 ESR 19 MM/HR 05/06/2012 Unknown VITAMIN B 12 FOLIC ACID 85929|46331 VIT B 12 922 PG/ML 04/11 Unknown VITAMIN B 12 FOLIC ACID 50927|71267 FOLIC ACID 13.6 NG/ML Unknown URIC ACID 98259 URIC ACID 7.8 MG/DL 05/06/2012 Unknown COMPLETE BLOOD COUNT 17852 WBC 11.9 10e9/L 012 Unknown COMPLETE BLOOD COUNT 65806 RBC 5.30 10e12/L 2011 Unknown COMPLETE BLOOD COUNT 83061 HGB 16.6 g/dL 2 Unknown COMPLETE BLOOD COUNT 26082 HCT DET 47.2 % 2 Unknown COMPLETE BLOOD COUNT 76958 MCV 89.1 fL 2 Unknown COMPLETE BLOOD COUNT 77807 MCH 31.3 pg 2 Unknown COMPLETE BLOOD COUNT 44318 MCHC 35.2 g/dL 2 Unknown COMPLETE BLOOD COUNT 48523 PLT 362 10e9/L 05/06/20 12 Unknown COMPLETE BLOOD COUNT 85068 MPV 9.4 fL 2 Unknown COMPLETE BLOOD COUNT 35820 CADEN % 68.2 % 2 Unknown COMPLETE BLOOD COUNT 22621 LY % 22.0 % 2 Unknown COMPLETE BLOOD COUNT 12393 MON % 6.9 % 2 Unknown COMPLETE BLOOD COUNT 99449 EOS % 2.6 % 2 Unknown COMPLETE BLOOD COUNT 34529 BASO % 0.3 % 2 Unknown COMPLETE BLOOD COUNT 56259 RDW 12.8 % 2 Unknown COMPLETE BLOOD COUNT 99614 ABS CADEN 8.12 10e9/L 012 Unknown COMPLETE BLOOD COUNT 15217 ABS LYMPH 2.62 10e9/L 08/27/2 012 Unknown COMPLETE BLOOD COUNT 27818 ABS MONO 0.82 10e9/L 012 Unknown COMPLETE BLOOD COUNT 64226 ABS EOS 0.31 10e9/L 012 Unknown COMPLETE BLOOD COUNT 97654 ABS BASO 0.04 10e9/L 012 Unknown COMPLETE BLOOD COUNT 93807 RDW-SD 41.5 fL 2 Unknown GFR CALC 0903908 GFR AA >60 ML/MIN 05/06/2012 Unknown GFR CALC 2818436 GFR NON-AA 58.0L ML/MIN 05/06/2012 Unkno wn FREE T4 63646 FREE T4 1.15 NG/DL 05/06/2012 Unknown THYROID STIMULATING HORMONE 51634 TSH 1.568 uIU/ML 05/06/2012 Unknown COMPREHENSIVE METABOLIC 33862 AST 20 U/L 2011 Unknown COMPREHENSIVE METABOLIC 06598 ALT 12 IU/L 2011 Unknown COMPREHENSIVE METABOLIC 97621 BUN 20 MG/DL 2011 Unknown COMPREHENSIVE METABOLIC 41501 ALBUMIN 4.5 GM/DL 2011 Unknown COMPREHENSIVE METABOLIC 28022 CHLORIDE 91 MMOL/L 2011 Unknown COMPREHENSIVE METABOLIC 95420 BILI TOT 0.4 MG/DL 2011 Unknown COMPREHENSIVE METABOLIC 49946 ALK PHOS 73 U/L 2011 Unknown COMPREHENSIVE METABOLIC 62259 SODIUM 139 MMOL/L 05/06 Unknown COMPREHENSIVE METABOLIC 44392 CREATININE 1.02 MG/DL 04/11 Unknown COMPREHENSIVE METABOLIC 93093 CALCIUM 9.7 MG/DL 2011 Unknown COMPREHENSIVE METABOLIC 05548 POTASSIUM 3.1 MMOL/L 05/06 Unknown COMPREHENSIVE METABOLIC 73169 PROT TOT 7.3 GM/DL 2011 Unknown COMPREHENSIVE METABOLIC 89193 Glucose 118 MG/DL 2011 Unknown COMPREHENSIVE METABOLIC 31243 BICARB 33 MMOL/L 2011 Unknown COMPREHENSIVE METABOLIC 55932 ANION GAP 15 MEQ/L 2011 Unknown Procedures Procedure Codes Date ROUTINE VENIPUNCTURE CPT-4: 75059 09/29/2019 URINALYSIS NONAUTO W/O SCOPE CPT-4: 96256 09/29/2019 COMPREHEN METABOLIC PANEL CPT-4: 00362 09/29/2019 LIPID PANEL CPT-4: 25654 09/29/2019 A1C HPLC CPT-4: 47550 09/29/2019 ASSAY OF FREE THYROXINE CPT-4: 13363 09/29/2019 ASSAY THYROID STIM HORMONE CPT-4: 06119 09/29/2019 COMPLETE CBC W/AUTO DIFF WBC CPT-4: 90823 09/29/2019 URINALYSIS NONAUTO W/O SCOPE CPT-4: 99467 09/30/2018 MICROALBUMIN QUANTITATIVE CPT-4: 97579 09/30/2018 CEFTRIAXONE SODIUM INJECTION CPT-4: J0696 06/19/2018 THER/PROPH/DIAG INJ SC/IM CPT-4: 90910 06/19/2018 CEFTRIAXONE SODIUM INJECTION CPT-4: J0696 06/17/2018 THER/PROPH/DIAG INJ SC/IM CPT-4: 59127 06/17/2018 THER/PROPH/DIAG INJ SC/IM CPT-4: 94118 05/16/2018 KETOROLAC TROMETHAMINE INJ CPT-4: J1885 05/16/2018 ONDANSETRON HCL INJECTION CPT-4: J2405 05/16/2018 THER/PROPH/DIAG INJ SC/IM CPT-4: 56782 05/16/2018 ROUTINE VENIPUNCTURE CPT-4: 63739 03/20/2018 COMPREHEN METABOLIC PANEL CPT-4: 84819 03/20/2018 DEXAMETHASONE SODIUM PHOS CPT-4: J1100 02/11/2018 THER/PROPH/DIAG INJ SC/IM CPT-4: 96158 02/11/2018 TRIAMCINOLONE ACET INJ NOS CPT-4: J3301 02/11/2018 CEFTRIAXONE SODIUM INJECTION CPT-4: J0696 02/01/2018 THER/PROPH/DIAG INJ SC/IM CPT-4: 99972 02/01/2018 CEFTRIAXONE SODIUM INJECTION CPT-4: J0696 01/30/2018 THER/PROPH/DIAG INJ SC/IM CPT-4: 34507 01/30/2018 ROUTINE VENIPUNCTURE CPT-4: 33249 12/10/2017 ASSAY OF FREE THYROXINE CPT-4: 92958 12/10/2017 ASSAY THYROID STIM HORMONE CPT-4: 33976 12/10/2017 COMPREHEN METABOLIC PANEL CPT-4: 52931 12/10/2017 COMPLETE CBC W/AUTO DIFF WBC CPT-4: 44630 12/10/2017 LIPID PANEL CPT-4: 12889 12/10/2017 A1C HPLC CPT-4: 86384 12/10/2017 CEFTRIAXONE SODIUM INJECTION CPT-4: J0696 12/10/2017 THER/PROPH/DIAG INJ SC/IM CPT-4: 29988 12/10/2017 CEFTRIAXONE SODIUM INJECTION CPT-4: J0696 12/07/2017 THER/PROPH/DIAG INJ SC/IM CPT-4: 93494 12/07/2017 DEXAMETHASONE SODIUM PHOS CPT-4: J1100 12/07/2017 THER/PROPH/DIAG INJ SC/IM CPT-4: 98432 12/07/2017 CEFTRIAXONE SODIUM INJECTION CPT-4: J0696 10/08/2017 THER/PROPH/DIAG INJ SC/IM CPT-4: 22433 10/08/2017 CEFTRIAXONE SODIUM INJECTION CPT-4: J0696 09/21/2017 THER/PROPH/DIAG INJ SC/IM CPT-4: 23023 09/21/2017 CEFTRIAXONE SODIUM INJECTION CPT-4: J0696 09/20/2017 THER/PROPH/DIAG INJ SC/IM CPT-4: 65615 09/20/2017 REMOVAL OF NAIL PLATE CPT-4: 36192 08/29/2017 THER/PROPH/DIAG INJ SC/IM CPT-4: 82573 08/29/2017 TRIAMCINOLONE ACET INJ NOS CPT-4: J3301 08/29/2017 CEFTRIAXONE SODIUM INJECTION CPT-4: J0696 08/29/2017 THER/PROPH/DIAG INJ SC/IM CPT-4: 05681 08/29/2017 DESTRUCT PREMALG LESION (Cryosurgery) CPT-4: 75660 ROUTINE VENIPUNCTURE CPT-4: 40893 06/27/2017 ASSAY OF FREE THYROXINE CPT-4: 96548 06/27/2017 ASSAY THYROID STIM HORMONE CPT-4: 21200 06/27/2017 COMPREHEN METABOLIC PANEL CPT-4: 36223 06/27/2017 COMPLETE CBC W/AUTO DIFF WBC CPT-4: 58936 06/27/2017 EXC TR-EXT B9+REECE 0.5 CM< CPT-4: 05065 01/24/2017 THER/PROPH/DIAG INJ SC/IM CPT-4: 48281 08/02/2016 DEXAMETHASONE SODIUM PHOS CPT-4: J1100 08/02/2016 DESTRUCT PREMALG LESION (Cryosurgery) CPT-4: 01483 EXC TR-EXT B9+REECE 0.5 CM< CPT-4: 03300 08/01/2016 AEROBIC WOUND CULTURE & STN CPT-4: 72124 07/06/2016 CEFTRIAXONE SODIUM INJECTION CPT-4: J0696 05/25/2016 THER/PROPH/DIAG INJ SC/IM CPT-4: 44801 05/25/2016 THER/PROPH/DIAG INJ SC/IM CPT-4: 82525 04/26/2016 DEXAMETHASONE SODIUM PHOS CPT-4: J1100 04/26/2016 CEFTRIAXONE SODIUM INJECTION CPT-4: J0696 04/26/2016 THER/PROPH/DIAG INJ SC/IM CPT-4: 42913 04/26/2016 THER/PROPH/DIAG INJ SC/IM CPT-4: 69378 02/09/2016 TRIAMCINOLONE ACET INJ NOS CPT-4: J3301 02/09/2016 URINALYSIS NONAUTO W/O SCOPE CPT-4: 06923 01/24/2016 URINE CULTURE/ COLONY COUNT CPT-4: 82480 01/24/2016 THER/PROPH/DIAG INJ SC/IM CPT-4: 51845 12/08/2015 TRIAMCINOLONE ACET INJ NOS CPT-4: J3301 12/08/2015 THER/PROPH/DIAG INJ SC/IM CPT-4: 30746 10/07/2015 TRIAMCINOLONE ACET INJ NOS CPT-4: J3301 10/07/2015 DESTRUCT PREMALG LESION (Cryosurgery) CPT-4: 30720 THER/PROPH/DIAG INJ SC/IM CPT-4: 20416 03/16/2015 METHYLPREDNISOLONE 40 MG INJ CPT-4: J1030 03/16/2015 DESTRUCT PREMALG LESION (Cryosurgery) CPT-4: 87539 THER/PROPH/DIAG INJ SC/IM CPT-4: 88251 09/11/2014 METHYLPREDNISOLONE 40 MG INJ CPT-4: J1030 09/11/2014 TRIAMCINOLONE ACET INJ NOS CPT-4: J3301 09/11/2014 CEFTRIAXONE SODIUM INJECTION CPT-4: J0696 09/11/2014 THER/PROPH/DIAG INJ SC/IM CPT-4: 96157 09/11/2014 ROUTINE VENIPUNCTURE CPT-4: 82681 08/27/2014 COMPREHEN METABOLIC PANEL CPT-4: 93548 08/27/2014 COMPLETE CBC W/AUTO DIFF WBC CPT-4: 94416 08/27/2014 LIPID PANEL CPT-4: 89844 08/27/2014 ROUTINE VENIPUNCTURE CPT-4: 38113 07/21/2014 ASSAY OF AMYLASE CPT-4: 19340 07/21/2014 ASSAY OF LIPASE CPT-4: 88282 07/21/2014 THER/PROPH/DIAG INJ SC/IM CPT-4: 67672 07/15/2014 TRIAMCINOLONE ACET INJ NOS CPT-4: J3301 07/15/2014 ROUTINE VENIPUNCTURE CPT-4: 87151 05/14/2014 ASSAY OF FREE THYROXINE CPT-4: 92559 05/14/2014 ASSAY THYROID STIM HORMONE CPT-4: 60226 05/14/2014 COMPREHEN METABOLIC PANEL CPT-4: 16034 05/14/2014 COMPLETE CBC W/AUTO DIFF WBC CPT-4: 77738 05/14/2014 LIPID PANEL CPT-4: 00544 05/14/2014 CEFTRIAXONE SODIUM INJECTION CPT-4: J0696 04/21/2014 THER/PROPH/DIAG INJ SC/IM CPT-4: 90997 04/21/2014 THER/PROPH/DIAG INJ SC/IM CPT-4: 02680 04/21/2014 TRIAMCINOLONE ACET INJ NOS CPT-4: J3301 04/21/2014 THER/PROPH/DIAG INJ SC/IM CPT-4: 56778 03/04/2014 METHYLPREDNISOLONE 40 MG INJ CPT-4: J1030 03/04/2014 TRIAMCINOLONE ACET INJ NOS CPT-4: J3301 03/04/2014 CEFTRIAXONE SODIUM INJECTION CPT-4: J0696 03/04/2014 THER/PROPH/DIAG INJ SC/IM CPT-4: 85842 03/04/2014 TDAP VACCINE 7 YRS/> IM CPT-4: 43118 02/27/2014 IMMUNIZATION ADMIN CPT-4: 23690 02/27/2014 DESTRUCT PREMALG LESION (Cryosurgery) CPT-4: 54994 DESTRUCT PREMALG LES 2-14 CPT-4: 79468 01/13/2014 THER/PROPH/DIAG INJ SC/IM CPT-4: 44508 10/21/2013 METHYLPREDNISOLONE 40 MG INJ CPT-4: J1030 10/21/2013 TRIAMCINOLONE ACET INJ NOS CPT-4: J3301 10/21/2013 CEFTRIAXONE SODIUM INJECTION CPT-4: J0696 08/27/2013 THER/PROPH/DIAG INJ SC/IM CPT-4: 29917 08/27/2013 THER/PROPH/DIAG INJ SC/IM CPT-4: 47105 08/27/2013 METHYLPREDNISOLONE 40 MG INJ CPT-4: J1030 08/27/2013 TRIAMCINOLONE ACET INJ NOS CPT-4: J3301 08/27/2013 THER/PROPH/DIAG INJ SC/IM CPT-4: 88915 06/23/2013 METHYLPREDNISOLONE 40 MG INJ CPT-4: J1030 06/23/2013 TRIAMCINOLONE ACET INJ NOS CPT-4: J3301 06/23/2013 THER/PROPH/DIAG INJ SC/IM CPT-4: 83987 05/26/2013 METHYLPREDNISOLONE 40 MG INJ CPT-4: J1030 05/26/2013 TRIAMCINOLONE ACET INJ NOS CPT-4: J3301 05/26/2013 ROUTINE VENIPUNCTURE CPT-4: 13290 03/05/2013 ASSAY OF FREE THYROXINE CPT-4: 14902 03/05/2013 ASSAY THYROID STIM HORMONE CPT-4: 60093 03/05/2013 COMPREHEN METABOLIC PANEL CPT-4: 72307 03/05/2013 COMPLETE CBC W/AUTO DIFF WBC CPT-4: 06739 03/05/2013 A1C GLYCOSYLATED HEMOGLOBIN TEST CPT-4: 56738 013 DRAIN/INJECT JOINT/BURSA CPT-4: 18758 12/04/2012 METHYLPREDNISOLONE 40 MG INJ CPT-4: J1030 12/04/2012 TRIAMCINOLONE ACET INJ NOS CPT-4: J3301 12/04/2012 CEFTRIAXONE SODIUM INJECTION CPT-4: J0696 11/21/2012 THER/PROPH/DIAG INJ SC/IM CPT-4: 21546 11/21/2012 THER/PROPH/DIAG INJ SC/IM CPT-4: 84017 10/14/2012 METHYLPREDNISOLONE 40 MG INJ CPT-4: J1030 10/14/2012 TRIAMCINOLONE ACET INJ NOS CPT-4: J3301 10/14/2012 URINALYSIS NONAUTO W/O SCOPE CPT-4: 47736 09/27/2012 ROUTINE VENIPUNCTURE CPT-4: 74943 09/25/2012 ASSAY OF FREE THYROXINE CPT-4: 99479 09/25/2012 ASSAY THYROID STIM HORMONE CPT-4: 12191 09/25/2012 COMPREHEN METABOLIC PANEL CPT-4: 42843 09/25/2012 COMPLETE CBC W/AUTO DIFF WBC CPT-4: 67372 09/25/2012 C-REACTIVE PROTEIN CPT-4: 09971 09/25/2012 THER/PROPH/DIAG INJ SC/IM CPT-4: 30359 08/29/2012 METHYLPREDNISOLONE 40 MG INJ CPT-4: J1030 08/29/2012 TRIAMCINOLONE ACET INJ NOS CPT-4: J3301 08/29/2012 DESTRUCT PREMALG LESION (Cryosurgery) CPT-4: 25642 THER/PROPH/DIAG INJ SC/IM CPT-4: 21310 05/06/2012 METHYLPREDNISOLONE 40 MG INJ CPT-4: J1030 05/06/2012 TRIAMCINOLONE ACET INJ NOS CPT-4: J3301 05/06/2012 VITAMIN B 12 FOLIC ACID CPT-4: 98512|47498 05/06/2012 RBC SED RATE AUTOMATED CPT-4: 69155 05/06/2012 ROUTINE VENIPUNCTURE CPT-4: 19421 05/06/2012 ASSAY OF FREE THYROXINE CPT-4: 58204 05/06/2012 ASSAY THYROID STIM HORMONE CPT-4: 59081 05/06/2012 COMPREHEN METABOLIC PANEL CPT-4: 85446 05/06/2012 COMPLETE CBC W/AUTO DIFF WBC CPT-4: 34827 05/06/2012 ASSAY OF BLOOD/URIC ACID CPT-4: 37229 05/06/2012 THER/PROPH/DIAG INJ SC/IM CPT-4: 60055 03/19/2012 KETOROLAC TROMETHAMINE INJ CPT-4: J1885 03/19/2012 KETOROLAC TROMETHAMINE INJ CPT-4: J1885 01/30/2012 THER/PROPH/DIAG INJ SC/IM CPT-4: 06230 01/30/2012 PROMETHAZINE HCL INJECTION CPT-4: J2550 01/30/2012 THER/PROPH/DIAG INJ SC/IM CPT-4: 83841 01/24/2012 METHYLPREDNISOLONE 40 MG INJ CPT-4: J1030 01/24/2012 TRIAMCINOLONE ACET INJ NOS CPT-4: J3301 01/24/2012 THER/PROPH/DIAG INJ SC/IM CPT-4: 81193 09/13/2011 KETOROLAC TROMETHAMINE INJ CPT-4: J1885 09/13/2011 THER/PROPH/DIAG INJ SC/IM CPT-4: 15801 09/13/2011 PROMETHAZINE HCL INJECTION CPT-4: J2550 09/13/2011 CEFTRIAXONE SODIUM INJECTION CPT-4: J0696 07/20/2011 THER/PROPH/DIAG INJ SC/IM CPT-4: 63957 07/20/2011 THER/PROPH/DIAG INJ SC/IM CPT-4: 45967 07/20/2011 METHYLPREDNISOLONE INJECTION CPT-4: J2930 07/20/2011 URINALYSIS NONAUTO W/O SCOPE CPT-4: 16578 05/09/2011 CEFTRIAXONE SODIUM INJECTION CPT-4: J0696 05/09/2011 THER/PROPH/DIAG INJ SC/IM CPT-4: 46294 05/09/2011 THER/PROPH/DIAG INJ SC/IM CPT-4: 08934 05/09/2011 PROMETHAZINE HCL INJECTION CPT-4: J2550 05/09/2011 HYDRATION IV INFUSION INIT CPT-4: 73944 05/09/2011 DESTRUCT PREMALG LESION (Cryosurgery) CPT-4: 60733 DESTRUCT PREMALG LES 2-14 CPT-4: 14741 07/19/2010 REMOVAL OF SKIN TAGS <W/15 CPT-4: 99147 05/30/2010 THER/PROPH/DIAG INJ SC/IM CPT-4: 69322 04/05/2010 CEFTRIAXONE SODIUM INJECTION CPT-4: J0696 04/05/2010 TRIAMCINOLONE ACET INJ NOS CPT-4: J3301 04/05/2010 METHYLPREDNISOLONE 40 MG INJ CPT-4: J1030 04/05/2010 THER/PROPH/DIAG INJ SC/IM CPT-4: 80443 04/05/2010 TRIAMCINOLONE ACET INJ NOS CPT-4: J3301 03/09/2010 METHYLPREDNISOLONE 40 MG INJ CPT-4: J1030 03/09/2010 THER/PROPH/DIAG INJ SC/IM CPT-4: 20478 03/09/2010 THER/PROPH/DIAG INJ SC/IM CPT-4: 72973 03/09/2010 CEFTRIAXONE SODIUM INJECTION CPT-4: J0696 03/09/2010 Vital Signs Date Vital 10/07/2019 Blood Pressure 1: 134/82 Code: 8480-6 Heart Rate 1: 105 bpm Respiratory Rate: 17 bpm SpO2: 96% Temperature: 36.8 (C) / 98.2 (F) We ight: 198 lbs 09/30/2019 Blood Pressure 1: 132/80 Code: 8480-6 BMI: 35.8 Code: 06766-7 Heart Rate 1: 88 bpm Height: 5'4" Respiratory Rate: 20 bpm SpO2: 95% Tempera ture: 36.9 (C) / 98.5 (F) Weight: 210 lbs 05/28/2019 Blood Pressure 1: 126/82 Code: 8480-6 BMI: 35.0 Code: 07502-5 Heart Rate 1: 88 bpm Height: 5'4" [...] 1: 128/90 Code: 8480-6 BMI: 37.2 Code: 72734-5 Heart Rate 1: 84 bpm Height: 5'4" Respiratory Rate: 20 bpm SpO2: 95% Tempera ture: 36.6 (C) / 97.8 (F) Weight: 217 lbs 08/27/2018 Blood Pressure 1: 128/88 Code: 8480-6 BMI: 38.3 Code: 88171-8 Heart Rate 1: 84 bpm Height: 5'4" [...] 1: 119/72 Code: 8480-6 BMI: 37.4 Code: 68341-8 Heart Rate 1: 82 bpm Height: 5'4" Respiratory Rate: 12 bpm SpO2: 94% Tempera ture: 35.2 (C) / 95.4 (F) Weight: 218 lbs 12/18/2017 Blood Pressure 1: 128/86 Code: 8480-6 BMI: 37.8 Code: 83052-6 Heart Rate 1: 84 bpm Height: 5'4" [...] 1: 128/82 Code: 8480-6 BMI: 35.5 Code: 80386-0 Heart Rate 1: 84 bpm Height: 5'4" [...] 1: 128/82 Code: 8480-6 BMI: 30.2 Code: 59882-7 Heart Rate 1: 80 bpm Height: 5'4" [...] 1: 128/86 Code: 8480-6 BMI: 32.8 Code: 30609-3 Heart Rate 1: 66 bpm Height: 5'4" Respiratory Rate: 18 bpm Temperature: 36 .3 (C) / 97.3 (F) Weight: 191 lbs 06/23/2013 Blood Pressure 1: 132/94 Code: 8480-6 BMI: 34.0 Code: 27276-6 Heart Rate 1: 84 bpm Height: 5'4" Respiratory Rate: 20 bpm Temperature: 36 .8 (C) / 98.2 (F) Weight: 198 lbs 05/26/2013 Blood Pressure 1: 114/80 Code: 8480-6 BMI: 35.0 Code: 84973-6 Heart Rate 1: 80 bpm Height: 5'4" Respiratory Rate: 20 bpm Temperature: 36 .4 (C) / 97.6 (F) Weight: 204 lbs 04/16/2013 Blood Pressure 1: 114/82 Code: 8480-6 BMI: 36.7 Code: 83246-7 Heart Rate 1: 84 bpm Height: 5'4" Respiratory Rate: 20 bpm Temperature: 36 .7 (C) / 98.0 (F) Weight: 214 lbs 03/05/2013 Blood Pressure 1: 136/90 Code: 8480-6 BMI: 37.1 Code: 51020-3 Heart Rate 1: 84 bpm Height: 5'4" [...] 1: 168/114 Code: 8480-6 BMI: 36.2 Code: 18014-8 Heart Rate 1: 104 bpm Height: 5'4" Respiratory Rate: 20 bpm Temperature: 36 .8 (C) / 98.2 (F) Weight: 211 lbs 11/22/2012 Blood Pressure 1: 128/90 Code: 8480-6 Heart Rate 1: 88 bpm Respiratory Rate: 20 bpm SpO2: 96% Temperature: 36.8 (C) / 98.2 (F) 11/21/2012 Blood Pressure 1: 146/100 Code: 8480-6 BMI: 35.7 Code: 63027-6 Heart Rate 1: 96 bpm Height: 5'4" [...] 1: 138/100 Code: 8480-6 BMI: 35.7 Code: 99439-7 Heart Rate 1: 96 bpm Height: 5'4" Respiratory Rate: 20 bpm Temperature: 36 .8 (C) / 98.2 (F) Weight: 208 lbs 05/06/2012 Blood Pressure 1: 154/102 Code: 8480-6 BMI: 34.7 Code: 30870-9 Heart Rate 1: 116 bpm Height: 5'4" Respiratory Rate: 20 bpm Temperature: 36 .8 (C) / 98.2 (F) Weight: 202 lbs 04/03/2012 Blood Pressure 1: 134/94 Code: 8480-6 BMI: 34.8 Code: 85750-4 Heart Rate 1: 108 bpm Height: 5'4" Respiratory Rate: 20 bpm Temperature: 36 .8 (C) / 98.2 (F) Weight: 203 lbs 03/19/2012 Blood Pressure 1: 148/106 Code: 8480-6 BMI: 35.0 Code: 69436-6 Heart Rate 1: 100 bpm Height: 5'4" Respiratory Rate: 20 bpm Temperature: 36 .6 (C) / 97.9 (F) Weight: 204 lbs 02/22/2012 Blood Pressure 1: 146/94 Code: 8480-6 He art Rate 1: 88 bpm 02/21/2012 Blood Pressure 1: 172/120 Code: 8480-6 B lood Pressure 2: 152/106 Code: 8480-6 Heart Rate 1: 116 bpm 02/20/2012 Blood Pressure 1: 160/100 Code: 8480-6 BMI: 32.0 Code: 19039-8 Heart Rate 1: 84 bpm Height: 5'7" Temperature: 36.5 (C) / 97.7 (F) Weight: 204 lbs 01/30/2012 Blood Pressure 1: 152/110 Code: 8480-6 BMI: 32.0 Code: 09302-9 Heart Rate 1: 116 bpm Height: 5'7" Respiratory Rate: 20 bpm Temperature: 37 .0 (C) / 98.6 (F) Weight: 204 lbs 01/24/2012 Blood Pressure 1: 146/100 Code: 8480-6 BMI: 32.0 Code: 16192-4 Heart Rate 1: 100 bpm Height: 5'7" Respiratory Rate: 20 bpm Temperature: 36 .7 (C) / 98.0 (F) Weight: 204 lbs 01/10/2012 Blood Pressure 1: 156/94 Code: 8480-6 BMI: 32.6 Code: 67699-6 Heart Rate 1: 72 bpm Height: 5'7" Respiratory Rate: 20 bpm Temperature: 36 .8 (C) / 98.2 (F) Weight: 208 lbs 12/11/2011 Blood Pressure 1: 146/100 Code: 8480-6 Heart Rat e 1: 116 bpm Height: 5'7" Respiratory Rate: 20 bpm Temperature: 36.9 (C) / 98.4 (F) We ight: 11/09/2011 Blood Pressure 1: 148/96 Code: 8480-6 BMI: 32.1 Code: 70380-2 Heart Rate 1: 116 bpm Height: 5'7" Respiratory Rate: 20 bpm Temperature: 36 .7 (C) / 98.0 (F) Weight: 205 lbs 09/13/2011 Blood Pressure 1: 126/88 Code: 8480-6 Heart Rate 1: 88 bpm Height: 5'7" Respiratory Rate: 20 bpm Temperature: 36.9 (C) / 98.4 (F) We ight: 08/31/2011 Blood Pressure 1: 118/82 Code: 8480-6 BMI: 32.0 Code: 85148-3 Heart Rate 1: 80 bpm Height: 5'7" Temperature: 36.4 (C) / 97.6 (F) Weight: 204 lbs 07/06/2011 Blood Pressure 1: 128/86 Code: 8480-6 BMI: 30.9 Code: 73925-4 Heart Rate 1: 92 bpm Height: 5'7" Respiratory Rate: 20 bpm Temperature: 36 .9 (C) / 98.4 (F) Weight: 197 lbs 06/06/2011 Blood Pressure 1: 112/74 Code: 8480-6 BMI: 31.0 Code: 13794-2 Heart Rate 1: 72 bpm Height: 5'7" [...] 1: 128/92 Code: 8480-6 BMI: 33.6 Code: 55373-5 Heart Rate 1: 104 bpm Height: 5'4" [...] Check-up Encounters Encounter Performer Location Codes Date ([id number]) OFFICE/OUTPATIENT VISIT EST Diagnosis: Ingrowing nail[ICD10: L60.0] Diagnosis: Type 2 diabetes mellitus with hyperglycemia[ICD10: E11.65] Kathleen Zuniga MARÍA ELENA Hicks [employer] CPT-4: 45771 10/07/2019 ([id number]) OFFICE/OUTPATIENT VISIT EST Diagnosis: DM w/o complication type II, uncontrolled[ICD10: E11.65] Diagnosis: Hypertriglyceridemia[ICD10: E78.1] Diagnosis: Essential hypertension[ICD10: I10] María Elena JEAN [employer] [facility] [employer] CPT-4: 25038 09/30/2019 ([id number]) NURSE/OUTPATIENT VISIT EST Diagnosis: Essential (primary) hypertension[ICD10: I10] Diagnosis: Cervicalgia[ICD10: M54.2] Diagnosis: Hyperglycemia, unspecified[ICD10: R73.9] Diagnosis: Mixed hyperlipidemia[ICD10: E78.2] María Elena JEAN [employer] CPT-4: 16383 09/29/2019 ([id number]) OFFICE/OUTPATIENT VISIT EST Diagnosis: Essential (primary) hypertension[ICD10: I10] Diagnosis: Fall from bed, sequela[ICD10: W06.XXXS] María Elena Hicks [facility] [employer] CPT-4: 75659 05/28/2019 ([id number]) NURSE/OUTPATIENT VISIT EST Diagnosis: Essential (primary) hypertension[ICD10: I10] María Elena Hicks [facility] [employer] CPT-4: 29846 05/19/2019 ([id number]) OFFICE/OUTPATIENT VISIT EST Diagnosis: Essential (primary) hypertension[ICD10: I10] Diagnosis: Type 2 diabetes mellitus with hyperglycemia[ICD10: E11.65] Diagnosis: Intervertebral disc disorders with radiculopathy, 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] Diagnosis: Hormone replacement therapy[ICD10: Z79.890] María Elena Hicks [employer] CPT-4: 49115 01/22/2019 ([id number]) OFFICE/OUTPATIENT VISIT EST Diagnosis: Essential (primary) hypertension[ICD10: I10] Diagnosis: Type 2 diabetes mellitus with hyperglycemia[ICD10: E11.65] María Elena [facility] CPT-4: 30591 09/30/2018 ([id number]) OFFICE/OUTPATIENT VISIT EST Diagnosis: Pain in left elbow[ICD10: M25.522] Diagnosis: Acute stress reaction[ICD10: F43.0] Diagnosis: Primary insomnia[ICD10: F51.01] Diagnosis: Abnormal weight gain[ICD10: R63.5] María Elena Td [facility] CPT-4: 53098 08/27/2018 ([id number]) OFFICE/OUTPATIENT VISIT EST Diagnosis: Acute recurrent sinusitis, unspecified[ICD10: J01.91] Diagnosis: Follicular disorder, unspecified[ICD10: L73.9] Diagnosis: Tinea corporis[ICD10: B35.4] María Elena [facility] CPT-4: 23738 08/09/2018 ([id number]) OFFICE/OUTPATIENT VISIT EST Diagnosis: Tinea corporis[ICD10: B35.4] Diagnosis: Anxiety disorder, unspecified[ICD10: F41.9] Diagnosis: Menopausal and female climacteric states[ICD10: N95.1] María Elena [facility] CPT-4: 62981 07/22/2018 ([id number]) NURSE/OUTPATIENT VISIT EST Diagnosis: Cellulitis of right toe[ICD10: L03.031] María Elenagael Appiah KYLAH [facility] CPT-4: 98058 06/19/2018 ([id number]) OFFICE/OUTPATIENT VISIT EST Diagnosis: Cellulitis of right toe[ICD10: L03.031] Kathleen Tenadi KYLAH [facility] CPT-4: 81027 06/17/2018 ([id number]) OFFICE/OUTPATIENT VISIT EST Diagnosis: Migraine without aura, intractable, without status migrainosus[ICD10: G43.019] Diagnosis: Zoster without complications[ICD10: B02.9] Kathleen [facility] CPT-4: 32215 05/16/2018 ([id number]) OFFICE/OUTPATIENT VISIT EST Diagnosis: Cellulitis of right lower limb[ICD10: L03.115] Kathleen [facility] CPT-4: 14234 03/20/2018 ([id number]) OFFICE/OUTPATIENT VISIT EST Diagnosis: Cellulitis of right lower limb[ICD10: L03.115] Kathleen [facility] CPT-4: 63999 03/18/2018 ([id number]) OFFICE/OUTPATIENT VISIT EST Diagnosis: Cellulitis of right lower limb[ICD10: L03.115] Kathleen [facility] CPT-4: 31577 03/15/2018 ([id number]) OFFICE/OUTPATIENT VISIT EST Diagnosis: Acute sinusitis, unspecified[ICD10: J01.90] Kathleen [facility] CPT-4: 19409 02/11/2018 ([id number]) NURSE/OUTPATIENT VISIT EST Diagnosis: Otitis media, unspecified, right ear[ICD10: H66.91] María Elena [facility] CPT-4: 43967 02/01/2018 ([id number]) OFFICE/OUTPATIENT VISIT EST Diagnosis: Acute suppurative otitis media without spontaneous rupture of ear drum, left ear[ICD10: H66.002] Diagnosis: Abnormal weight gain[ICD10: R63.5] Diagnosis: Intervertebral disc disorders with radiculopathy, 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] Kathleen [facility] CPT-4: 99 214 01/30/2018 ([id number]) PREV VISIT EST AGE 40-64 Diagnosis: Encounter for general adult medical examination without abnormal findings[ICD10: Z00.00] Diagnosis: Essential (primary) hypertension[ICD10: I10] Diagnosis: Mixed hyperlipidemia[ICD10: E78.2] Diagnosis: Type 2 diabetes mellitus with hyperglycemia[ICD10: E11.65] Diagnosis: 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] María Elena [facility] CPT-4: 28092 12/18/2017 ([id number]) OFFICE/OUTPATIENT VISIT EST Diagnosis: Cellulitis of right toe[ICD10: L03.031] Diagnosis: Mixed hyperlipidemia[ICD10: E78.2] Diagnosis: Essential (primary) hypertension[ICD10: I10] Diagnosis: Hyperglycemia, unspecified[ICD10: R73.9] Diagnosis: Nontoxic goiter, 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] María Elena [facility] CPT-4: 75786 12/10/2017 ([id number]) OFFICE/OUTPATIENT VISIT EST Diagnosis: Cellulitis of right toe[ICD10: L03.031] Diagnosis: Acute sinusitis, unspecified[ICD10: J01.90] Kathleen [facility] CPT-4: 64084 12/07/2017 OFFICE/OUTPATIENT VISIT EST Diagnosis: Acute maxillary sinusitis, unspecified[ICD10: J01.00] Kathleen [facility] CPT-4: 56291 10/08/2017 ([id number]) OFFICE/OUTPATIENT VISIT EST Diagnosis: Cellulitis of left toe[ICD10: L03.032] María Elena [facility] CPT-4: 99886 09/21/2017 ([id number]) OFFICE/OUTPATIENT VISIT EST Diagnosis: Insomnia, unspecified[ICD10: G47.00] Diagnosis: Major depressive disorder, single episode, unspecified[ICD10: F32.9] Diagnosis: Anxiety disorder, unspecified[ICD10: F41.9] Diagnosis: Cellulitis of left toe[ICD10: L03.032] Diagnosis: Snoring[ICD10: R06.83] Kathleen [facility] DO 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] Diagnosis: Primary insomnia[ICD10: F51.01] Diagnosis: Other fatigue[ICD10: R53.83] María Elena [facility] CPT-4: 54147 04/10/2017 ([id number]) OFFICE/OUTPATIENT VISIT EST Diagnosis: Primary insomnia[ICD10: F51.01] Diagnosis: Localized edema[ICD10: R60.0] Diagnosis: 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] María Elena [facility] CPT-4: 27284 12/13/2016 ([id number]) OFFICE/OUTPATIENT VISIT EST Diagnosis: Primary insomnia[ICD10: F51.01] Diagnosis: Cyanosis[ICD10: R23.0] María Elena Bazzi [employer] CPT-4: 98272 11/01/2016 ([id number]) PREV VISIT EST AGE 40-64 Diagnosis: Encounter for gynecological examination (general) (routine) without abnormal findings[ICD10: Z01.419] Diagnosis: Encounter for routine child health examination without abnormal findings[ICD10: Z00.129] María Elena [facility] [employer] [facility] CPT-4: 27350 10/17/2016 ([id number]) OFFICE/OUTPATIENT VISIT EST Diagnosis: Other seasonal allergic rhinitis[ICD10: J30.2] María Elena [facility] [employer] [facility] CPT-4: 21445 10/10/2016 ([id number]) OFFICE/OUTPATIENT VISIT EST Diagnosis: Pain in left arm[ICD10: M79.602] Diagnosis: Contact with and (suspected) exposure to potentially hazardous body fluids[ICD10: Z77.21] Diagnosis: 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, 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] Diagnosis: Unspecified open wound, right foot, sequela[ICD10: S91.301S] María Elena [facility] CPT-4: 17696 09/19/2016 ([id number]) OFFICE/OUTPATIENT VISIT EST Diagnosis: Chronic sinusitis, unspecified[ICD10: J32.9] Diagnosis: Allergic rhinitis due to pollen[ICD10: J30.1] María Elena [facility] CPT-4: 34957 08/24/2016 ([id number]) OFFICE/OUTPATIENT VISIT EST Diagnosis: Acute bronchitis, unspecified[ICD10: J20.9] María Elena [facility] CPT-4: 07649 08/16/2016 ([id number]) OFFICE/OUTPATIENT VISIT EST Diagnosis: Otitis media, unspecified, right ear[ICD10: H66.91] Diagnosis: Acute bronchitis, unspecified[ICD10: J20.9] María Elena [facility] CPT-4: 19159 08/10/2016 ([id number]) OFFICE/OUTPATIENT VISIT EST Diagnosis: Acute recurrent sinusitis, unspecified[ICD10: J01.91] Diagnosis: Allergic rhinitis due to pollen[ICD10: J30.1] María Elena [facility] [employer] [facility] CPT-4: 04410 08/02/2016 ([id number]) OFFICE/OUTPATIENT VISIT EST Diagnosis: Pain in unspecified joint[ICD10: M25.50] María Elena [facility] CPT-4: 27110 07/27/2016 OFFICE/OUTPATIENT VISIT EST Diagnosis: 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] Diagnosis: Acute recurrent sinusitis, unspecified[ICD10: J01.91] Diagnosis: Other fatigue[ICD10: R53.83] Diagnosis: Primary insomnia[ICD10: F51.01] Diagnosis: Pain in unspecified joint[ICD10: M25.50] María Elena APPIAH [email or web address] [facility] CPT-4: 30156 07/20/2016 ([id number]) OFFICE/OUTPATIENT VISIT EST Diagnosis: Blister (nonthermal), left great toe, initial encounter[ICD10: S90.422A] Loan APPIAH DO [facility] CPT-4: 35636 ([id number]) OFFICE/OUTPATIENT VISIT EST Diagnosis: Acute recurrent sinusitis, unspecified[ICD10: J01.91] María Elena APPIAH DO [facility] CPT-4: 47733 05/25/2016 ([id number]) OFFICE/OUTPATIENT VISIT EST Diagnosis: Acute sinusitis, unspecified[ICD10: J01.90] María Elena APPIAH DO [facility] CPT-4: 93335 04/26/2016 ([id number]) OFFICE/OUTPATIENT VISIT EST Diagnosis: Flushing[ICD10: R23.2] Diagnosis: Primary insomnia[ICD10: F51.01] María Elena APPIAH DO [facility] CPT-4: 36444 03/02/2016 ([id number]) OFFICE/OUTPATIENT VISIT EST Diagnosis: Other seasonal allergic rhinitis[ICD10: J30.2] Loan APPIAH DO [facility] CPT-4: 52561 02/09/2016 ([id number]) OFFICE/OUTPATIENT VISIT EST Diagnosis: Primary insomnia[ICD10: F51.01] Diagnosis: Urinary tract infection, site not specified[ICD10: N39.0] María Elena APPIAH DO [facility] CPT-4: 18454 01/24/2016 ([id number]) OFFICE/OUTPATIENT VISIT EST Diagnosis: Other specified disorders of Eustachian tube, bilateral[ICD10: H69.83] Diagnosis: Allergic rhinitis, unspecified[ICD10: J30.9] Loan APPIAH DO [facility] CPT-4: 18171 12/23/2015 ([id number]) OFFICE/OUTPATIENT VISIT EST Diagnosis: Acute recurrent sinusitis, unspecified[ICD10: J01.91] Diagnosis: 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] Diagnosis: Allergic rhinitis, unspecified[ICD10: J30.9] María Elena APPIAH DO [facility] CPT-4: 61702 12/08/2015 ([id number]) OFFICE/OUTPATIENT VISIT EST Diagnosis: Allergic rhinitis, unspecified[ICD10: J30.9] Diagnosis: Pain in unspecified joint[ICD10: M25.50] María Elena APPIAH DO [facility] CPT-4: 72025 10/07/2015 ([id number]) OFFICE/OUTPATIENT VISIT EST Diagnosis: Essential (primary) hypertension[ICD10: I10] María Elena APPIAH DO [facility] CPT-4: 51606 10/06/2015 OFFICE/OUTPATIENT VISIT EST Diagnosis: Localized enlarged lymph nodes[ICD10: R59.0] Diagnosis: Local infection of the skin and subcutaneous tissue, unspecified[ICD10: L08.9] June VelozAlbertadaniella APPIAH DO [facility] CPT- 4: 26275 09/14/2015 ([id number]) OFFICE/OUTPATIENT VISIT EST Diagnosis: Essential (primary) hypertension[ICD10: I10] Diagnosis: Actinic keratosis[ICD10: L57.0] María Elena APPIAH DO [facility] CPT-4: 87217 09/07/2015 ([id number]) OFFICE/OUTPATIENT VISIT EST Diagnosis: Essential (primary) hypertension[ICD10: I10] Diagnosis: Acute stress reaction[ICD10: F43.0] María Elena APPIAH DO [facility] CPT-4: 77856 08/18/2015 ([id number]) OFFICE/OUTPATIENT VISIT EST Diagnosis: Essential (primary) hypertension[ICD10: I10] María Elena APPIAH DO [facility] CPT-4: 59452 07/07/2015 ([id number]) OFFICE/OUTPATIENT VISIT EST Diagnosis: Essential (primary) hypertension[ICD10: I10] María Elena APPIAH DO [facility] CPT-4: 73118 06/24/2015 ([id number]) OFFICE/OUTPATIENT VISIT EST Diagnosis: Essential (primary) hypertension[ICD10: I10] María Elena APPIAH DO [facility] CPT-4: 59056 06/21/2015 ([id number]) OFFICE/OUTPATIENT VISIT EST Diagnosis: Essential (primary) hypertension[ICD10: I10] Diagnosis: Mixed hyperlipidemia[ICD10: E78.2] Diagnosis: Acute stress reaction[ICD10: F43.0] Diagnosis: Primary insomnia[ICD10: F51.01] María Elena APPIAH [facility] CPT-4: 44983 06/16/2015 ([id number]) OFFICE/OUTPATIENT VISIT EST Diagnosis: INSOMNIA NOS[ICD9: 780.52] Diagnosis: HYPERTENSION[ICD9: 401.9] Diagnosis: Stress reaction[ICD9: 308.9] María Elena APPIAH [facility] CPT-4: 20373 06/02/2015 ([id number]) OFFICE/OUTPATIENT VISIT EST Diagnosis: HYPERTENSION[ICD9: 401.9] Diagnosis: Stress reaction[ICD9: 308.9] María Elena APPIAH [facility] CPT-4: 76113 05/20/2015 ([id number]) OFFICE/OUTPATIENT VISIT EST Diagnosis: Skin lesion[ICD9: 709.9] 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 CPT[facility]: 27728 05/10/2015 ([id number]) OFFICE/OUTPATIENT VISIT EST Diagnosis: SINUSITIS, ACUTE[ICD9: 461.9] Diagnosis: ALLERGIC RHINITIS[ICD9: 477.9] Diagnosis: DERMATITIS NOS[ICD9: 692.9] María Elena ELLISLINE LucioJj Marcos ORI [facility] CPT-4: 54615 03/16/2015 OFFICE/OUTPATIENT VISIT EST Diagnosis: Otitis media[ICD9: 382.9] Diagnosis: SINUSITIS, ACUTE[ICD9: 461.9] June Flores AMRÍA ELENA Luc[facility]Jj [facility]: 16167 09/11/2014 ([id number]) OFFICE/OUTPATIENT VISIT EST Diagnosis: HYPERLIPIDEMIA NEC/NOS[ICD9: 272.4] María Elena Seamusdawn COLON LucioJj [facility]PT[facility]: 12691 08/31/2014 ([id number]) OFFICE/OUTPATIENT VISIT EST Diagnosis: - I - HYPERTENSION[ICD9: 401.9] Diagnosis: HYPERLIPIDEMIA NEC/NOS[ICD9: 272.4] María Elena APPIAH DO [facility] CPT-4: 48310 08/27/2014 ([id number]) OFFICE/OUTPATIENT VISIT EST Diagnosis: ABDOMINAL PAIN[ICD9: 789.00] Diagnosis: DYSPEPSIA[ICD9: 536.8] Diagnosis: Thoracic back pain[ICD9: 724.1] María Elena APPIAH DO [facility] CPT-4: 64104 07/21/2014 ([id number]) OFFICE/OUTPATIENT VISIT EST Diagnosis: ALLERGIC RHINITIS[ICD9: 477.9] María Elena APPIAH DO [facility] CPT-4: 58823 07/15/2014 ([id number]) OFFICE/OUTPATIENT VISIT EST Diagnosis: EDEMA[ICD9: 782.3] Diagnosis: Chronic insomnia[ICD9: 780.52] María Elena APPIAH DO [facility] CPT-4: 84280 05/18/2014 ([id number]) OFFICE/OUTPATIENT VISIT EST Diagnosis: Thyromegaly[ICD9: 240.9] Diagnosis: - I - HYPERTENSION[ICD9: 401.9] Diagnosis: ROUTINE MEDICAL EXAM[ICD9: V70.0] Diagnosis: EDEMA[ICD9: 782.3] María Elena APPIAH DO [facility] CPT-4: 90650 05/14/2014 OFFICE/OUTPATIENT VISIT EST Diagnosis: BRONCHITIS, ACUTE[ICD9: 466.0] Diagnosis: SINUSITIS, ACUTE[ICD9: 461.9] María Elena APPIAH DO [facility] CPT-4: 02358 04/21/2014 OFFICE/OUTPATIENT VISIT EST Diagnosis: SINUSITIS, ACUTE[ICD9: 461.9] June Flores MARÍA ELENA APPIAH DO [facility] CPT-4: 57280 03/04/2014 ([id number]) OFFICE/OUTPATIENT VISIT EST Diagnosis: VACCINE FOR TDAP[ICD10: Z23] María Elena APPIAH [facility] CPT-4: 89733 02/27/2014 ([id number]) OFFICE/OUTPATIENT VISIT EST Diagnosis: Seborrheic keratoses, inflamed[ICD9: 702.11] Diagnosis: ACTINIC KERATOSIS[ICD9: 702.0] Diagnosis: INSOMNIA NOS[ICD9: 780.52] María Elena PANDYA [facility] CPT-4: 64040 01/13/2014 OFFICE/OUTPATIENT VISIT EST Diagnosis: EUSTACHIAN TUBE DYSFUNCTION[ICD9: 381.81] Diagnosis: ALLERGIC RHINITIS[ICD9: 477.9] Diagnosis: Serous otitis media[ICD9: 381.4] María Elena APPIAH [facility] CPT-4: 54671 12/24/2013 ([id number]) OFFICE/OUTPATIENT VISIT EST Diagnosis: SINUSITIS, ACUTE[ICD9: 461.9] Diagnosis: ALLERGIC RHINITIS[ICD9: 477.9] Diagnosis: EUSTACHIAN TUBE DYSFUNCTION[ICD9: 381.81] María [facility]: 42607 11/12/2013 ([id number]) OFFICE/OUTPATIENT VISIT EST Diagnosis: ALLERGIC RHINITIS[ICD9: 477.9] Diagnosis: SINUSITIS, ACUTE[ICD9: 461.9] María Elena APPIAH [facility] CPT-4: 16013 10/21/2013 ([id number]) OFFICE/OUTPATIENT VISIT EST Diagnosis: ASYMPTOMATIC VARICOSE VEINS[ICD9: 454.9] Diagnosis: INSOMNIA NOS[ICD9: 780.52] María Elena Valdes 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] María Elena APPIAH [facility] CPT-4: 66098 08/04/2013 ([id number]) OFFICE/OUTPATIENT VISIT EST Diagnosis: Cervicalgia[ICD9: 723.1] Diagnosis: SPASM OF MUSCLE[ICD9: 728.85] Diagnosis: CEPHALGIA, TENSION[ICD9: 307.81] María Elena APPIAH DO [facility] CPT-4: 24290 07/23/2013 ([id number]) OFFICE/OUTPATIENT VISIT EST Diagnosis: EUSTACHIAN TUBE DYSFUNCTION[ICD9: 381.81] Diagnosis: ALLERGIC RHINITIS[ICD9: 477.9] María Elena APPIAH DO [facility] CPT-4: 52253 06/23/2013 ([id number]) OFFICE/OUTPATIENT VISIT EST Diagnosis: ALLERGIC RHINITIS[ICD9: 477.9] Diagnosis: ACUTE SEROUS OTITIS MEDIA[ICD9: 381.01] Diagnosis: EUSTACHIAN TUBE DYSFUNCTION[ICD9: 381.81] María Elena APPIAH DO [facility] CPT-4: 18842 05/26/2013 ([id number]) OFFICE/OUTPATIENT VISIT EST Diagnosis: HYPERTENSION[ICD9: 401.9] Diagnosis: EDEMA[ICD9: 782.3] Diagnosis: Serous otitis media[ICD9: 381.4] María Elena APPIAH DO [facility] CPT-4: 42307 04/16/2013 ([id number]) OFFICE/OUTPATIENT VISIT EST Diagnosis: SINUSITIS, ACUTE[ICD9: 461.9] Diagnosis: ALLERGIC RHINITIS[ICD9: 477.9] Diagnosis: EDEMA[ICD9: 782.3] Diagnosis: Thyromegaly[ICD9: 240.9] Diagnosis: MALAISE AND FATIGUE[ICD9: 780.79] María Elena APPIAH DO [facility] CPT-4: 51265 03/05/2013 ([id number]) OFFICE/OUTPATIENT VISIT EST Diagnosis: PAIN, LOWER BACK[ICD9: 724.2] Diagnosis: SPASM OF MUSCLE[ICD9: 728.85] María Elena APPIAH DO [facility] CPT-4: 98972 12/23/2012 OFFICE/OUTPATIENT VISIT EST Diagnosis: Low back pain[ICD9: 724.2] Lashawn Babar MARÍA ELENA S. [facility]YN [facility] CPT-4: 09025 12/16/2012 ([id number]) OFFICE/OUTPATIENT VISIT EST Diagnosis: PAIN, LOWER BACK[ICD9: 724.2] Diagnosis: SCIATICA[ICD9: 724.3] Diagnosis: Lumbar herniated disc[ICD9: 722.10] María Elena COLON LucioJj TD GARIBAY [facility] CPT-4: 91555 12/09/2012 ([id number]) OFFICE/OUTPATIENT VISIT EST Diagnosis: PAIN, LOWER BACK[ICD9: 724.2] Diagnosis: SCIATICA[ICD9: 724.3] Diagnosis: LUMBAR DISC DISPLACEMENT[ICD9: 722.10] María Elena MARIN LucioJj TD [facility] CPT-4: 08882 12/04/2012 OFFICE/OUTPATIENT VISIT EST Diagnosis: Pneumonia[ICD9: 486] Mary JUARES LucioJj [facility] CPT[facility]: 90463 11/22/2012 ([id number]) OFFICE/OUTPATIENT VISIT EST Diagnosis: PNEUMONIA, ORGANISM[ICD9: 486] Diagnosis: Exacerbation of RAD (reactive airway disease)[ICD9: 493.92] María Elena JUARES LucioJj TD [facility] CPT-4: 33193 11/21/2012 OFFICE/OUTPATIENT VISIT EST Diagnosis: HYPERTENSION[ICD9: 401.9] Diagnosis: Cephalgia[ICD9: 784.0] Lashawn Hicks SEAMUSYESIVICTORINO GARIBAY [facility] CPT-4: 61746 10/29/2012 ([id number]) OFFICE/OUTPATIENT VISIT EST Diagnosis: MALAISE AND FATIGUE[ICD9: 780.79] Diagnosis: ARTHRALGIA-MULTIPLE SITES[ICD9: 719.49] María Elena REED LucioJj TD GARIBAY [facility] CPT-4: 34872 10/14/2012 ([id number]) OFFICE/OUTPATIENT VISIT EST Diagnosis: URINARY FREQUENCY[ICD9: 788.41] María Elena JUARES LucioJj TD GARIBAY [facility] CPT-4: 37712 09/27/2012 ([id number]) OFFICE/OUTPATIENT VISIT EST Diagnosis: MALAISE AND FATIGUE[ICD9: 780.79] Diagnosis: ARTHRALGIA-MULTIPLE SITES[ICD9: 719.49] María Elena APPIAH [facility] CPT-4: 28619 09/25/2012 ([id number]) OFFICE/OUTPATIENT VISIT EST Diagnosis: SINUSITIS, ACUTE[ICD9: 461.9] Diagnosis: EUSTACHIAN TUBE DYSFUNCTION[ICD9: 381.81] María Elena APPIAH [facility] CPT-4: 94735 08/29/2012 OFFICE/OUTPATIENT VISIT EST Diagnosis: ACTINIC KERATOSIS[ICD9: 702.0] Diagnosis: Inflamed seborrheic keratosis[ICD9: 702.11] Diagnosis: Skin cancer of face[ICD9: 173.31] Diagnosis: HYPERTENSION[ICD9: 401.9] [facility]: 12100 08/12/2012 ([id number]) OFFICE/OUTPATIENT VISIT EST Diagnosis: ARTHRALGIA-MULTIPLE SITES[ICD9: 719.49] Diagnosis: GOUT[ICD9: 274.9] Diagnosis: HYPERTENSION[ICD9: 401.9] Diagnosis: Tachycardia[ICD9: 785.0] María Elena HU [facility] CPT-4: 48255 05/06/2012 ([id number]) OFFICE/OUTPATIENT VISIT EST Diagnosis: INSOMNIA NOS[ICD9: 780.52] [facility]: 28955 04/03/2012 ([id number]) OFFICE/OUTPATIENT VISIT EST Diagnosis: INSOMNIA NOS[ICD9: 780.52] Diagnosis: HYPERTENSION[ICD9: 401.9] Diagnosis: MIGRAINE NOS/NOT INTRCBL[ICD9: 346.90] [facility]: 66168 03/19/2012 ([id number]) OFFICE/OUTPATIENT VISIT EST Diagnosis: CELLULITIS[ICD9: 682.9] Diagnosis: Ankle pain[ICD9: 719.47] Diagnosis: HYPERTENSION[ICD9: 401.9] María Elena [facility] CPT-4: 42459 02/20/2012 ([id number]) OFFICE/OUTPATIENT VISIT EST Diagnosis: MIGRAINE NOS/NOT INTRCBL[ICD9: 346.90] Diagnosis: Vomiting[ICD9: 787.03] María Elena JUARES LucioJj SEAMUSYESIJohn Bazzi [facility] CPT-4: 62677 01/30/2012 ([id number]) OFFICE/OUTPATIENT VISIT EST Diagnosis: EDEMA[ICD9: 782.3] Diagnosis: HYPERTENSION[ICD9: 401.9] Diagnosis: ALLERGIC RHINITIS[ICD9: 477.9] Diagnosis: ARTHRALGIA-MULTIPLE SITES[ICD9: 719.49] María Elena Seamusdawn REED LucioJj TD [facility] CPT-4: 94895 01/24/2012 ([id number]) OFFICE/OUTPATIENT VISIT EST Diagnosis: SPASM OF MUSCLE[ICD9: 728.85] Diagnosis: Thoracic back pain[ICD9: 724.1] Diagnosis: Cervical pain[ICD9: 723.1] María Elena Hicks KRISTYN MUMTAZ [facility] CPT-4: 66301 01/10/2012 OFFICE/OUTPATIENT VISIT EST Diagnosis: PAIN, LOWER BACK[ICD9: 724.2] Diagnosis: LUMBAR DISC DISPLACEMENT[ICD9: 722.10] María Elena MARIN LucioJj TD [employer] [facility] CPT-4: 82300 12/11/2011 OFFICE/OUTPATIENT VISIT EST Diagnosis: MIGRAINE NOS/NOT INTRCBL[ICD9: 346.90] Diagnosis: SINUSITIS, ACUTE[ICD9: 461.9] María Elena Hicks TD [employer] [facility] CPT-4: 39203 11/09/2011 OFFICE/OUTPATIENT VISIT EST Diagnosis: MIGRAINE NOS/NOT INTRCBL[ICD9: 346.90] Diagnosis: LYMPHADENOPATHY[ICD9: 785.6] María Elena Hicks TD [employer] [facility] CPT-4: 26114 09/13/2011 OFFICE/OUTPATIENT VISIT EST Diagnosis: MALAISE AND FATIGUE[ICD9: 780.79] Diagnosis: ARTHRALGIA-MULTIPLE SITES[ICD9: 719.49] María Elena Hicks TD [employer] [facility] CPT-4: 38013 08/31/2011 OFFICE/OUTPATIENT VISIT EST Diagnosis: SINUSITIS, ACUTE[ICD9: 461.9] María Elena ORTAER DO [facility] CPT-4: 04056 07/20/2011 OFFICE/OUTPATIENT VISIT EST Diagnosis: HYPERTENSION[ICD9: 401.9] Diagnosis: PAIN, LOWER BACK[ICD9: 724.2] Diagnosis: SPASM OF MUSCLE[ICD9: 728.85] María Elena ORTAER DO [facility] CPT-4: 58029 07/06/2011 OFFICE/OUTPATIENT VISIT EST Diagnosis: MIGRAINE NOS/NOT INTRCBL[ICD9: 346.90] Diagnosis: HYPERTENSION[ICD9: 401.9] María Elena GODOY NDER [facility] CPT-4: 41943 05/22/2011 OFFICE/OUTPATIENT VISIT EST Diagnosis: SINUSITIS, ACUTE[ICD9: 461.9] Diagnosis: MIGRAINE NOS/NOT INTRCBL[ICD9: 346.90] Diagnosis: Dehydration[ICD9: 276.51] Diagnosis: Vomiting[ICD9: 787.03] María Elena ORTAE R DO [facility] CPT-4: 03680 05/09/2011 ([id number]) OFFICE/OUTPATIENT VISIT EST María Elena MARIN SJj GODOYNDER DO [facility] CPT-4: 94016 02/14/2011 ([id number]) OFFICE/OUTPATIENT VISIT EST María Elena ISAAC UJARED S. ORENDER DO [facility] CPT-4: 56381 02/03/2011 ([id number]) OFFICE/OUTPATIENT VISIT EST María Elena ISAAC UJARED S. OR[facility] DO [facility] CPT-4: 75384 01/31/2011 ([id number]) OFFICE/OUTPATIENT VISIT EST María Elena ISAAC UELINE S. [facility] DO [facility] CPT-4: 86615 01/25/2011 ([id number]) OFFICE/OUTPATIENT VISIT EST María Elena ISAAC UJARED S. [facility] CPT-4: 22251 01/18/2011 ([id number]) OFFICE/OUTPATIENT VISIT EST María Elena MARIN S[facility] CPT-4: 93182 11/29/2010 ([id number]) OFFICE/OUTPATIENT VISIT, EST María Elena [facility] CPT-4: 04625 10/10/2010 ([id number]) OFFICE/OUTPATIENT VISIT, EST María Elena [facility] CPT-4: 41919 06/07/2010 ([id number]) OFFICE/OUTPATIENT VISIT, EST María Elena [facility] CPT-4: 66005 04/27/2010 ([id number]) OFFICE/OUTPATIENT VISIT, EST María Elena REED [facility] CPT-4: 91130 04/05/2010 ([id number]) OFFICE/OUTPATIENT VISIT, EST María Elena REED S[facility] CPT-4: 80607 03/09/2010 ([id number]) OFFICE/OUTPATIENT VISIT, EST María Elena REED [facility] CPT-4: 94386 03/03/2010 ([id number]) OFFICE/OUTPATIENT VISIT, EST María Elena REED [facility] CPT-4: 59901 01/17/2010 ([id number]) PREV VISIT, EST, AGE 40-64 María Elena COLEMAN S. [facility] CPT-4: 47424 12/27/2009 Plan of Care Planned Activity Notes [...] : L60.0 10/07/2019 Appointment: Kathleen Zuniga [address] [facility] [place] OFFICE SURGERY 10/07/2019 Visit Diagnosis Plan: [...] E78.1 09/30/2019 Appointment: María Elena Appiah WPtel: [address] [place], [place] [phone] [place] CHECK UP 09/30/2019 Patient Education: Premarin- [employer] Coupon [id number] https://www.[employer].com/samplemd/resources/getResource/61/92655b96-n295-9sxp-a4 Completed 09/30/2019 Appointment: María Elena Appiah WPtel: [address] [place], [place] [phone] [place] LAB 09/29/2019 Appointment: María Elena Appiah WPtel: [address] [place] [address] [place] Won't have the new insurance till Sep 10. CANCELE D 07/24/2019 Visit Diagnosis Plan: Fall from bed, sequela Discussio n: DC gabapentin Decrease baclofen to 10mg TID prn ICD-9 : E929.3 ICD-10 : W06.XXXS 05/28/2019 Visit Diagnosis Plan: Essential (primary) hypertension Discussion: Stable Will have insurance in July and do lab then ICD-9 : 401.9 ICD-10 : I10 05/28/2019 Appointment: María Elena Appiah WPtel: [address] [place], [place] [phone] [place] FOLLOW UP 05/28/2019 Appointment: María Elena Appiahtel: [address] [place], [place] [phone] [place] BP CHECK 05/19/2019 Visit Diagnosis Plan: [...] : M51.16 01/22/2019 Appointment: María Elena Appiahtel: [address] [place], [place] [phone] [place] FOLLOW UP 01/22/2019 Patient Education: estradiol- [employer] Coupon [id number] https://www.[employer].Wagaduu/samplemd/resources/getResource/61/353p854m-4is8-5w09-8m Completed 01/22/2019 Appointment: María Elena Appiahtel: [address] [place] [address] [place] CANCELED 01/20/2019 Appointment: María Elena Appiah WPtel: [address] [place] [address] US LM NO SHOW 01/06/2019 Appointment: María Elena Appiah WPtel: [address] [place] [address] US CANCELED 10/17/2018 Appointment: María Elena Appiah WPtel: [address] [place] [address] US BP CHECK 10/09/2018 Visit Diagnosis Plan: [...] 09/30/2018 Appointment: María Elena Appiah WPtel: [address] [place] [address] US FOLLOW UP 09/30/2018 Visit Diagnosis Plan: [...] R63.5 08/27/2018 Appointment: María Elena Appiah WPtel: [address] [place] [address] US ACUTE ILLNESS 08/27/2018 Appointment: María Elena Appiah WPtel: [address] [place], [place] [phone] [place] Patient stated she went out to [...] Tyle... 08/09/2018 Appointment: María Elena Appiahtel: [address] [place] [address] ACUTE ILLNESS 08/09/2018 Appointment: María Elena Appiahtel: [address] [place], [place] [id number] NO SHOW 08/08/2018 Visit Diagnosis Plan: Anxiety [...] : B35.4 07/22/2018 Appointment: María Elena Appiahtel: [address] [place], [place] [phone] ACUTE ILLNESS 07/22/2018 Appointment: María Elena Appiahtel: [address] [place], [place] [phone] [place] INJECTION 06/19/2018 Patient Education: Patient Medication [...] : L03.031 06/17/2018 Appointment: Kathleen Zuniga [address] [facility] ACUTE ILLNESS 06/17/2018 Patient Education: Patient Medication [...] : B02.9 05/16/2018 Appointment: Kathleen Zuniga [address] [facility] ACUTE ILLNESS 05/16/2018 Patient Education: Patient Medication [...] : L03.115 03/20/2018 Appointment: Kathleen Zuniga [address] [facility] FOLLOW UP 03/20/2018 Patient Education: Patient Medication [...] : L03.115 03/18/2018 Appointment: Kathleen Zuniga [address] [facility] FOLLOW UP 03/18/2018 Patient Education: Patient Medication [...] 02/11/2018 Appointment: María Elena Appiah WPtel: [phone] [facility] [place] INJECTION 02/01/2018 Patient Education: Patient Medication [...] ICD-10 : M51.16 01/30/2018 Appointment: Kathleen Zuniga [address] [place], [place] [id number] ACUTE ILLNESS 01/30/2018 Patient [...] ICD-9 : 250.02 ICD-10 : E11.65 12/18/2017 Visit Diagnosis Plan: Mixed hyperlipidemia Discussion: diet/exercise/weight loss and recheck in 6mos ICD-9 : 272.4 ICD-10 : E78.2 12/18/2017 Visit Diagnosis Plan: Essential (primary) hypertension Discussion: Stable ICD-9 : 401.9 ICD-10 : I10 12/18/2017 Appointment: María Elena Appiah WPtel: [phone] Annual Well Visit 12/18/2017 Patient Education: Patient Medication Summary Completed 12/18/2017 Care Plan: Referral Order SNOMED-CT : [id number] Pending 12/18/2017 Appointment: María Elena Appiah WPtel: [phone] [place] [address] [place] INJECTION 12/10/2017 Patient Education: Patient Medication [...] ICD-10 : J01.90 12/07/2017 Appointment: Kathleen Zuniga [address] [place] [address] ACUTE ILLNESS 12/07/2017 Patient Education: Patient Medication [...] ICD-10 : J01.00 10/08/2017 Appointment: Kathleen Zuniga [address] [place] [address] ACUTE ILLNESS 10/08/2017 Patient Education: Patient Medication Summary Completed 10/08/2017 Appointment: María Elena Appiah WPtel: [phone] [id number] [place] INJECTION 09/21/2017 Patient Education: Patient Medication [...] ICD-10 : F32.9 09/20/2017 Visit Diagnosis Plan: Insomnia, unspecified Discussion [...] ICD-9 : 786.09 ICD-10 : R06.83 09/20/2017 Visit Diagnosis Plan: Anxiety disorder, unspecified Di scussion: see other plans. follow up 1 month ICD-9 : 300.00 ICD-10 : F41.9 09/20/2017 Appointment: Kathleen Zuniga [address] [place], [place] [id number] ACUTE ILLNESS 09/20/2017 Patient Education: Patient Medication [...] ICD-10 : L60.0 08/29/2017 Appointment: Kathleen Zuniga [address] [place], [place] [id number] OFFICE SURGERY 08/29/2017 Patient Education: Patient Medication Summary Completed 08/29/2017 Visit Diagnosis Plan: Actinic keratosis Discussion: Cr yotherapy as above ICD-9 : 702.0 ICD-10 : L57.0 08/01/2017 Appointment: María Elena Appiah WPtel: [address] [place] [address] OFFICE SURGERY 08/01/2017 Patient Education: Patient Medication Summary Completed 08/01/2017 Appointment: María Elena Appiah WPtel: [address] [place] [address] PATIENT THOUGHT APPOINTMENT WAS TOMORROW 07/26/17 CALLED 15 MINUTES BEFORE APPT TO SAY SHE DIDN'T HAVE ANYONE TO COVER HER BUSINESS AND WOULD NOT MAKE IT NO SHOW 07/25/2017 Visit Diagnosis Plan: Cellulitis of left toe Discussio n: Clindamycin and notify if worsening or persistis ICD-9 : 681.10 ICD-10 : L03.032 07/19/2017 Appointment: María Elena Appiah WPtel: [address] [place], [place] [phone] MEDICATION REVIEW 07/19/2017 Patient Education: Patient Medication Summary Completed 07/19/2017 Appointment: María Elena Appiah WPtel: [address] [place], [place] [phone] [place] CANCELED 07/04/2017 Visit Diagnosis Plan: Chronic sinusitis, unspecified D iscussion: Referral sent to dr. albarado in [place] per patient request. 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, including hip Discussion: Shave removal of above lesio n--sent to pathology ICD-9 : 216.7 ICD-10 : D23.72 01/24/2017 Appointment: María Elena Appiah WPtel: [address] [place] [address] 01/23 confirmed ~sl OFFICE SURGERY 01/24/2017 Patient Education: Patient Medication Summary Completed 01/24/2017 Appointment: Loan Sánchez [address] [place] [address] 01/09 rescheduled~sl RESCHEDULED 01/15/2017 Visit Diagnosis Plan: Other melanin hyperpigmentation Discussion: Monitor/Observe Sunscreen ICD-9 : 709.09 ICD-10 : L81.4 12/13/2016 Visit Diagnosis Plan: Primary insomnia Discussion: Dis tavares Hernández but at this time patient wants to hold on trying any new meds and would like to try to decrease meds ICD-9 : 780.52 ICD-10 : F51.01 12/13/2016 Visit Diagnosis Plan: Localized edema Discussion: Reich ge metolazone to lasix with potassium prn ICD-9 : 782.3 ICD-10 : R60.0 12/13/2016 Appointment: María Elena Appiah WPtel: [address] [place], [place] [phone] [place] 12/12 confirmed ~sl MEDICATION REVIEW 12/13/2016 Patient Education: Patient Medication Summary Completed 12/13/2016 Appointment: María Elena Appiah WPtel: [address] [place], [place] [phone] [place] rescheduled for 12/13/16 at 11am RESCHEDULED 0 12/06/2016 Appointment: María Elena Appiah WPtel: [address] [place], [place] [phone] [place] CANCELED 11/23/2016 Patient Education: Patient Medication [...] R23.0 11/01/2016 Appointment: María Elena Appiah WPtel: [address] [place], [place] [phone] [place] 10/31 lm `sl 11/01 lm`sl MEDICATION REVIEW 017 Patient Education: Patient Medication Summary Completed 11/01/2016 Referral: Canelo Overton WPtel: [phone] [id number] Referral Initiated 10/30/2016 Visit Diagnosis Plan: Encounter [...] Z00.129 10/17/2016 Appointment: María Elena Appiah WPtel: [address] [place], [place] [id number] 10/16 confirmed ~sl PAP 10/17/2016 Patient Education: Patient Medication Summary Completed 10/17/2016 Care Plan: MAMMOGRAM SCREENING LOINC : 2 6347-5 Pending 10/17/2016 Visit Diagnosis Plan: Other seasonal allergic rhinitis Discussion: Decadron/Garamycin Nasal [place] Mix Too soon for steroid Retry zyrtec 10mg daily ICD-9 : 477.9 ICD-10 : J30.2 10/10/2016 Appointment: María Elena Appiah WPtel: [address] [place], [place] [id number] [place] FOLLOW UP 10/10/2016 Patient Education: Patient Medication Summary Completed 10/10/2016 Appointment: María Elena Appiah WPtel: [address] [place], [place] [id number] 10/02 reschedule `sl RESCHEDULED 10/02/2016 Visit Plan: See surgery for removal of n ew left arm lesion and right foot lesion Lyrica to use next month for left arm paresthesias Continue current meds Discussed sunscreen/sunblock combo 09/19/2016 Appointment: María Elena Appiah WPtel: [phone] 09/18 confirmed ~sl FOLLOW UP 09/19/2016 Patient Education: Patient Medication Summary Completed 09/19/2016 Patient Education: Patient Medication Summary Completed 09/18/2016 Care Plan: MAMMOGRAM BOTH BREASTS LOINC : 09146-7 Pending 09/18/2016 Visit Plan: Discussed that needs [...] María Elena Appiah WPtel: [address] [place] [address] ACUTE ILLNESS 08/24/2016 Patient Education: Patient Medication Summary Completed 08/24/2016 Patient Education: Patient Medication Summary Completed 08/23/2016 Care Plan: MAMMOGRAM SCREENING LOINC : 2 6347-5 Pending 08/23/2016 Visit Plan: Finish doxycycline Add Breo 100/25 1 p BID for 2 weeks If not improving within next 2 days will get CXR 08/16/2016 Appointment: María Elena Appiahtel: [address] [place] [address] ACUTE ILLNESS 08/16/2016 Patient Education: Patient Medication Summary Completed 08/16/2016 Visit Plan: Supportive care. Rest, Fluid s, Tylenol/Motrin prn fever or bodyaches. Notify if worsening symptoms. Doxycyline and Prednisone 08/10/2016 Appointment: María Elena Appiah WPtel: [facility] [address] 08/09 lm`sl....confirmed-sp FOLLOW UP 09/2015 Patient Education: Patient Medication Summary Completed 08/10/2016 Visit Plan: Saline nasal flushes prn. Ty lenol/Motrin prn headache. Notify if persists/symptoms worsening. Dexamethasone 8mg IM today May use coricedan and mucinex 08/02/2016 Appointment: María Elena Appiah WPtel: [address] [place], [place] [id number] ACUTE ILLNESS 08/02/2016 Patient Education: Patient Medication Summary Completed 08/02/2016 Visit Plan: Cryotherapy as above and lef t forearm lesion removal as above with 5-0 punch biopsy and [facility] Return in 10 days for suture removal 08/01/2016 Appointment: María Elena Appiah WPtel: [address] [place] [address] 07/31 confirmed`~ OFFICE SURGERY 08/01/2016 Patient Education: Patient Medication Summary Completed 08/01/2016 Visit Plan: Stop clindamycin Check CBC, CMP, ESR now/STAT 07/27/2016 Appointment: María Elena Appiah WPtel: [address] [place] [address] ACUTE ILLNESS 07/27/2016 Patient Education: Patient Medication Summary Completed 07/27/2016 Visit Plan: Update lab and check ABIs to start with Will likely need cardiology evaluation to rule out PVD Clindamycin for 10 days Daily yogurt or probiotic Will return for removal of left arm lesions 07/20/2016 Appointment: María Elena Appiah WPtel: [address] [place] [address] ACUTE ILLNESS 07/20/2016 Patient Education: Patient Medication Summary Completed 07/20/2016 Patient Education: Patient Medication Summary Completed 07/20/2016 Care Plan: MAMMOGRAM BOTH BREASTS LOINC : 87680-8 Pending 07/20/2016 Care Plan: US EXAM CHEST LOINC : 08847-2 Pending 07/20/2016 Visit Plan: Wound culture collected from left great toe Appearance is somewhat staph like Rx as above Wound cleanser and skin care reviewed May need to add oral antibiotic if sores do not heal or continue to reoccur 07/06/2016 Appointment: Loan Sánchez [address] [place] [address] ACUTE ILLNESS 07/06/2016 Patient Education: Patient Medication Summary Completed 07/06/2016 Appointment: María Elena Appiah WPtel: [address] [place], [place] [phone] [place] INJECTION 05/25/2016 Patient Education: Patient Medication Summary Completed 05/25/2016 Visit Plan: Saline nasal flushes prn. Ty lenol/Motrin prn headache. Notify if persists/symptoms worsening. Dexamethasone and Rocephin given 04/26/2016 Appointment: María Elena Appiah WPtel: [address] [place] [address] ACUTE ILLNESS 04/26/2016 Patient Education: Patient Medication Summary Completed 04/26/2016 Visit Plan: Check CBC, CMP, TSH, FreeT4, HbA1C, estradiol, lipids in AM 03/02/2016 Appointment: María Elena Appiah WPtel: [address] [place] [address] 03/01 lm~sl ACUTE ILLNESS 03/02/2016 Patient Education: Patient Medication Summary Completed 03/02/2016 Visit Plan: Exam is nearly normal Needs to be taking daily antihistamine Would prefer to use oral steroids instead of shot but patient insist that oral steroids cause horrible headaches for her Will given kenalog IM instead 02/09/2016 Appointment: Loan Sánchez [address] [place] [address] ACUTE ILLNESS 02/09/2016 Patient Education: Patient Medication Summary Completed 02/09/2016 Visit Plan: Culture urine Macrobid DC xa nax Trial of Ativan 1mg q HS 01/24/2016 Appointment: María Elena Appiah WPtel: [address] [place] [address] ACUTE ILLNESS 01/24/2016 Patient Education: Patient Medication Summary Completed 01/24/2016 Visit Plan: No steroid or rocephin injec tion warranted Can have oral prednisone Continue current home regimen Needs to follow up with Dr Sanchez if problems persist 12/23/2015 Appointment: Loan Sánchez [address] [place] [address] ACUTE ILLNESS 12/23/2015 Patient Education: Patient Medication Summary Completed 12/23/2015 Visit Plan: Saline nasal flushes prn. Ty lenol/Motrin prn headache. Notify if persists/symptoms worsening. Kenalog 40mg IM today 12/08/2015 Appointment: María Elena Appiah WPtel: [address] [place], [place] [phone] 12/06 confirmed~sl ACUTE ILLNESS 12/08/2015 Patient Education: Patient Medication Summary Completed 12/08/2015 Appointment: María Elena Appiah WPtel: [address] [place], [place] [id number] ACUTE ILLNESS 11/18/2015 Patient Education: Patient Medication Summary Completed 10/11/2015 Appointment: María Elena Appiah WPtel: [address] [place], [place] [phone] [place] INJECTION 10/07/2015 Patient Education: Patient Medication Summary Completed 10/07/2015 Visit Plan: Check renal arterial doppler s and ECHO Change amlodopine to lotrel 5/20mg q HS Will need stress test as well Check CMP, uric acid, ESR 10/06/2015 Appointment: María Elena Appiah WPtel: [address] [place], [place] [id number] ACUTE ILLNESS 10/06/2015 Patient Education: Patient Medication Summary Completed 10/06/2015 Patient Education: [facility] - Saving [employer] - Amlodipine Besylate - 18-64 - Dynamic Portal ID Completed 10/06/2015 Appointment: María Elena Appiah WPtel: [address] [place], [place] [phone] FOLLOW UP 09/22/2015 Visit Plan: Cephalexin 500 mg PO bid Mery ly topical Mupirocin to lesions on left lateral neck and face Follow-up in one week. Sooner if symptoms worsen 09/14/2015 Appointment: June Flores WPtel: [address] [place] [address] ACUTE ILLNESS 09/14/2015 Patient Education: Patient Medication Summary Completed 09/14/2015 Visit Plan: Change bystolic to bedtime d osing and amlodopine to morning dosing Cryotherapy as above to AKs 09/07/2015 Appointment: María Elena Appiah WPtel: [address] [place], [place] [phone] 09/06 appointment made and confirmed ~sl FOLLOW UP 09/07/2015 Patient Education: Patient Medication Summary Completed 09/07/2015 Visit Plan: Increase bystolic back to 20 mg daily but will split and take 10mg in AM and 10mg in PM Stress Reducers 08/18/2015 Appointment: María Elena Appiah WPtel: [address] [place] [address] 08/17/15 appt confirmed cn ACUTE ILLNESS 08/18 Patient Education: Patient Medication Summary Completed 08/18/2015 Appointment: María Elena Appiah WPtel: [address] [place] [address] BP CHECK 07/07/2015 Patient Education: Patient Medication Summary Completed 07/07/2015 Appointment: María Elena Appiah WPtel: [address] [place] [address] BP CHECK 06/24/2015 Patient Education: Patient Medication Summary Completed 06/24/2015 Appointment: María Elena Appiah WPtel: [address] [place] [address] BP CHECK 06/21/2015 Patient Education: Patient Medication Summary Completed 06/21/2015 Visit Plan: Lab discussed Continue curre nt meds and lifestyle modification Recheck lab in 6mos 06/16/2015 Appointment: María Elena Appiah WPtel: [address] [place] [address] 06/15 confirmed FOLLOW UP 06/16/2015 Patient Education: Patient Medication Summary Completed 06/16/2015 Patient Education: Patient Medication Summary Completed 06/15/2015 Visit Plan: Increase cymbalta to 60mg q HS Keep clonidine at current dose Recheck 2weeks Change xanax to klonopin 06/02/2015 Appointment: María Elena Appiah WPtel: [address] [place], [place] [phone] 06/02 lm FOLLOW UP 06/02/2015 Patient Education: Patient Medication Summary Completed 06/02/2015 Appointment: María Elena Appiah WPtel: [address] [place] [address] ACUTE ILLNESS 05/24/2015 Visit Plan: Increase clonidine to 0.2mg q HS Add cymbalta 30mg q HS Recheck 2weeks Stress Reducers Check fasting lab Discussed sleep study 05/20/2015 Appointment: María Elena Appiah WPtel: [address] [place] [address] ACUTE ILLNESS 05/20/2015 Patient Education: Patient Medication Summary Completed 05/20/2015 Patient Education: [facility] - [employer]aving [employer] - Cymbalta - 18-64 - Dynamic Portal ID Completed 05/20/2015 Appointment: María Elena Appiah WPtel: [address] [place] [address] BP CHECK 05/19/2015 Patient Education: Patient Medication Summary Completed 05/19/2015 Visit Plan: Topical Bactroban alternatin g with topical betamethasone Recheck 2weeks 05/10/2015 Appointment: María Elena Appiah WPtel: [address] [place] [address] 05/07 cn...05/07 appt confirmed OFFICE SURGER Y 05/10/2015 Patient Education: Patient Medication Summary Completed 05/10/2015 [facility]: [facility] [address] Referral Initiated 05/04/2015 Visit Plan: Saline nasal flushes prn. Ty lenol/Motrin prn headache. Notify if persists/symptoms worsening. Depomedrol 40mg IM today 03/16/2015 Appointment: María Elena Appiah WPtel: [address] [place] [address] ACUTE ILLNESS 03/16/2015 Patient Education: Patient Medication Summary Completed 03/16/2015 Appointment: María Elena Appiah WPtel: [address] [place] [address] ER Follow UP 03/09/2015 Visit Plan: Cryotherapy to lesions as ab ove 10/27/2014 Appointment: María Elena Appiah WPtel: [address] [place] [address] OFFICE SURGERY 10/27/2014 Patient Education: Patient Medication Summary Completed 10/27/2014 Appointment: June Flores WPtel: [address] [place] [address] ACUTE ILLNESS 09/11/2014 Patient Education: Patient Medication Summary Completed 09/11/2014 Visit Plan: Lab discussed Lipitor 10mg d aily Coenzyme Q-10 400mg daily Vitamin D3 5000u daily Recheck lipids with LFTs in 3mos then fwup 08/31/2014 Appointment: María Elena Appiah WPtel: [address] [place] [address] 08/28 voicemail FOLLOW UP 08/31/2014 Patient Education: Patient Medication Summary Completed 08/31/2014 Appointment: María Elena Appiah WPtel: [address] [place] [address] US LAB 08/27/2014 Appointment: María Elena Appiah WPtel: [address] [place], [place] [phone] [place] LAB 08/27/2014 Patient Education: Patient Medication Summary Completed 08/27/2014 Appointment: María Elena Appiah WPtel: [address] [place], [place] [id number] ACUTE ILLNESS 07/23/2014 Appointment: María Elena Appiah WPtel: [address] [place] [address] ACUTE ILLNESS 07/21/2014 Patient Education: Patient Medication Summary Completed 07/21/2014 Visit Plan: Kenalog 40mg IM today Contin ue narendra and singulair Add Flonase 07/15/2014 Appointment: María Elena Appiah WPtel: [address] [place], [place] [phone] ACUTE ILLNESS 07/15/2014 Appointment: María Elena Appiah WPtel: [address] [place], [place] [phone] ACUTE ILLNESS 07/15/2014 Patient Education: Patient Medication Summary Completed 07/15/2014 Visit Plan: Will do metolazone 2.5mg prn with 6 potassium and see if causes as severe cramping Trial of of seroquel XR 50mg q PM with evening meal and let us know how works 05/18/2014 Appointment: María Elena Appiah WPtel: [address] [place], [place] [phone] 05/15 left message FOLLOW UP 05/18/2014 Patient Education: Patient Medication Summary Completed 05/18/2014 Appointment: María Elena Appiah WPtel: [address] [place], [place] [phone] LAB 05/14/2014 Patient Education: Patient Medication Summary Completed 05/14/2014 Appointment: María Elena Appiah WPtel: [address] [place], [place] [phone] [place] INJECTION 04/22/2014 Visit Plan: Nimco today a nd finish abx given from urgent care 04/21/2014 Appointment: María Elena Appiah WPtel: [address] [place], [place] [phone] [place] INJECTION 04/21/2014 Patient Education: Patient Medication Summary Completed 04/21/2014 Appointment: June Flores WPtel: [address] [place], [place] [phone] ACUTE ILLNESS 03/04/2014 Patient Education: Patient Medication Summary Completed 03/04/2014 Appointment: María Elena Appiah WPtel: [address] [place], [place] [phone] [place] INJECTION 02/27/2014 Patient Education: Patient Medication Summary Completed 02/27/2014 Visit Plan: Cryotherapy as above to all lesions Patient wants to try no meds for insomnia for a while and see how goes 01/13/2014 Appointment: María Elena Appiah WPtel: [address] [place] [address] OFFICE SURGERY 01/13/2014 Patient Education: Patient Medication Summary Completed 01/13/2014 Visit Plan: Stop Melatonin Stop Soma Tri al of trazadone 75mg q HS See ENT for possible tubes as has had chronic ETD and serous otitis media with numerous steroids 12/24/2013 Appointment: María Elena Appiah WPtel: [address] [place] [address] ACUTE ILLNESS 12/24/2013 Patient Education: Patient Medication Summary Completed 12/24/2013 Visit Plan: Saline nasal flushes prn. Ty lenol/Motrin prn headache. Notify if persists/symptoms worsening. 11/12/2013 Appointment: María Elena Appiah WPtel: [address] [place] [address] ACUTE ILLNESS 11/12/2013 Patient Education: Patient Medication Summary Completed 11/12/2013 Appointment: María Elena Appiah WPtel: [address] [place] [address] ACUTE ILLNESS 10/21/2013 Patient Education: Patient Medication Summary Completed 10/21/2013 Visit Plan: Sleep hygiene and sleep rout ine Melatonin 10mg q HS Support stockings and observe 09/22/2013 Appointment: María Elena Appiah WPtel: [address] [place] [address] ACUTE ILLNESS 09/22/2013 Patient Education: Patient Medication Summary Completed 09/22/2013 Appointment: June Flores WPtel: [address] [place] [address] ACUTE ILLNESS 08/27/2013 Patient Education: Patient Medication Summary Completed 08/27/2013 Visit Plan: Proceed with CT scan of head /neck Proceed with occipital nerve injections Butrans 20mcg patch weekly until can get into see Dr. Mcdonough for injections 08/04/2013 Appointment: María Elena Appiah WPtel: [address] [place] [address] FOLLOW UP 08/04/2013 Patient Education: Patient Medication Summary Completed 08/04/2013 Visit Plan: OMT done Daily neck stretche s, moist heat Increase Celebrex to 200mg BID Add flexeril 07/23/2013 Appointment: María Elena Appiah WPtel: [address] [place] [address] 07/22 voicemail FOLLOW UP 07/23/2013 Patient Education: Patient Medication Summary Completed 07/23/2013 Appointment: María Elena Appiah WPtel: [address] [place] [address] ACUTE ILLNESS 06/23/2013 Patient Education: Patient Medication Summary Completed 06/23/2013 Appointment: María Elena Appiah WPtel: [address] [place] [address] ACUTE ILLNESS 05/26/2013 Patient Education: Patient Medication Summary Completed 05/26/2013 Visit Plan: Decrease clonidine to 0.1mg TID If BP remains stable consider decreasing amlodopine Prednisone for 5 days BP check in 1mo 04/16/2013 Appointment: María Elena Appiah WPtel: [address] [place] [address] 04/14 pt called and confirmed appt FOLLOW UP 04/16/2013 Patient Education: Patient Medication Summary Completed 04/16/2013 Appointment: María Elena Appiah WPtel: [address] [place] [address] ACUTE ILLNESS 03/05/2013 Patient Education: Patient Medication Summary Completed 03/05/2013 Visit Plan: Pt has MARIA ELENA on with Dr. Mcdonough Continue Butrans patch Refill Hydrocodone early tomorrow 12/23/2012 Appointment: María Elena Appiah WPtel: [address] [place] [address] FOLLOW UP 12/23/2012 Patient Education: Patient Medication Summary Completed 12/23/2012 Appointment: Lashawn Eckert WPtel: [address] [place] [address] ACUTE ILLNESS 12/16/2012 Patient Education: Patient Medication Summary Completed 12/16/2012 Visit Plan: Proceed with updated MRI of LS spine Continue gabapentin and add soma and diclofenac Will likely need to go for another epidural 12/09/2012 Appointment: María Elena Appiah WPtel: [address] [place] [address] ACUTE ILLNESS 12/09/2012 Patient Education: Patient Medication Summary Completed 12/09/2012 Visit Plan: Injection as above Finish me drol dose pack Chiropracter this afternoon 12/04/2012 Appointment: María Elena Appiah WPtel: [address] [place] [address] ACUTE ILLNESS 12/04/2012 Patient Education: Patient Medication Summary Completed 12/04/2012 Appointment: Mary Tillman WPtel: [address] [place] [address] FOLLOW UP 11/22/2012 Patient Education: Patient Medication Summary Completed 11/22/2012 Appointment: María Elena Appiah WPtel: [address] [place] [address] ACUTE ILLNESS 11/21/2012 Patient Education: Patient Medication Summary Completed 11/21/2012 Appointment: María Elena Appiah WPtel: [address] [place] [address] BP CHECK 11/07/2012 Patient Education: Patient Medication [...] BP re-check. 10/29/2012 Appointment: Lashawn Eckert WPtel: [address] [place] [address] ACUTE ILLNESS 10/29/2012 Patient Education: Patient Medication Summary Completed 10/29/2012 Appointment: María Elena Appiah WPtel: [address] [place], [place] [id number] ACUTE ILLNESS 10/14/2012 Patient Education: Patient Medication Summary Completed 10/14/2012 Appointment: María Elena Appiah WPtel: [address] [place] [address] UA 09/27/2012 Patient Education: Patient Medication Summary Completed 09/27/2012 Appointment: María Elena Appiah WPtel: [address] [place] [address] ACUTE ILLNESS 09/25/2012 Patient Education: Patient Medication Summary Completed 09/25/2012 Appointment: María Elena Appiah WPtel: [address] [place] [address] BP CHECK 09/24/2012 Appointment: María Elena Appiah WPtel: [address] [place] [address] ACUTE ILLNESS 08/29/2012 Patient Education: Patient Medication Summary Completed 08/29/2012 Visit Plan: Cryotherapy as above See Karlos m for right ear lesion--probable MOHs procedure Increase amlodopine to 10mg daily 08/12/2012 Appointment: María Elena Appiah WPtel: [address] [place], [place] [id number] OFFICE SURGERY 08/12/2012 Patient Education: Patient Medication Summary Completed 08/12/2012 Appointment: María Elena Appiah WPtel: [address] [place], [place] [id number] 05/03 vm on pt phone...pt called on 04/11 3 pt called wanting in had no one cancel so could not get her in for an appt sooner than 05/06. ACUTE ILLNESS 05/06/2012 Patient Education: Patient Medication Summary Completed 05/06/2012 Visit Plan: Pt wants to hold on any furt her sleep medications 04/03/2012 Appointment: María Elena Appiahtel: [address] [place] [address] FOLLOW UP 04/03/2012 Patient Education: Patient Medication Summary Completed 04/03/2012 Appointment: María Elena Appiah WPtel: [address] [place] [address] FOLLOW UP 03/19/2012 Patient Education: Patient Medication Summary Completed 03/19/2012 Appointment: María Elena Appiahtel: [address] [place] [address] BP CHECK 02/22/2012 Patient Education: Patient Medication Summary Completed 02/22/2012 Appointment: María Elena Appiah WPtel: [address] [place] [address] BP CHECK 02/21/2012 Patient Education: Patient Medication Summary Completed 02/21/2012 Visit Plan: Doxycycline and bactroban fo r foot Supportive care on ankles and knees Add norvasc for BP 02/20/2012 Appointment: María Elena Appiahtel: [address] [place] [address] ER Follow UP 02/20/2012 Patient Education: Patient Medication Summary Completed 02/20/2012 Appointment: María Elena Appiahtel: [address] [place] [address] ACUTE ILLNESS 01/30/2012 Patient Education: Patient Medication Summary Completed 01/30/2012 Appointment: María Elena Appiahtel: [address] [place] [address] ACUTE ILLNESS 01/24/2012 Patient Education: Patient Medication Summary Completed 01/24/2012 Visit Plan: Daily back stretches, moist heat, Biofreeze prn OMT done 01/10/2012 Appointment: María Elena Appiah WPtel: [address] [place] [address] ACUTE ILLNESS 01/10/2012 Patient Education: Patient Medication Summary Completed 01/10/2012 Appointment: María Elena Appiah WPtel: [address] [place] [address] FOLLOW UP 12/11/2011 Patient Education: Patient Medication Summary Completed 12/11/2011 Appointment: María Elena Appiah WPtel: [address] [place] [address] ACUTE ILLNESS 11/09/2011 Patient Education: Patient Medication Summary Completed 11/09/2011 Appointment: María Elena Appiah WPtel: [address] [place] [address] ACUTE ILLNESS 09/13/2011 Patient Education: Patient Medication Summary Completed 09/13/2011 Visit Plan: Check CBC, TSH, Free T4, CMP , ESR, Vit D, B12 now Start Prednisone today 08/31/2011 Appointment: María Elena Appiah WPtel: [address] [place] [address] ACUTE ILLNESS 08/31/2011 Patient Education: Patient Medication Summary Completed 08/31/2011 Appointment: María Elena Appiah WPtel: [address] [place] [address] US INJECTION 07/20/2011 Patient Education: Patient Medication Summary Completed 07/20/2011 Visit Plan: Continue current meds Monite r BP Cont stretches from PT 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 07/06/2011 Appointment: María Elena Appiahtel: [address] [place] [address] FOLLOW UP 07/06/2011 Patient Education: Patient Medication Summary Completed 07/06/2011 Appointment: María Elena Appiah WPtel: [address] [place] [address] BP CHECK 06/06/2011 Patient Education: Patient Medication Summary Completed 06/06/2011 Visit Plan: Add Bystolic at 2.5mg QAM Ad d Robaxin 750mg 2 po q HS BP check in 2wks 05/22/2011 Appointment: María Elena Appiah WPtel: [address] [place], [place] [phone] FOLLOW UP 05/22/2011 Patient Education: Patient Medication Summary Completed 05/22/2011 Appointment: María Elena Appiah WPtel: [address] [place], [place] [id number] ER Follow UP 05/09/2011 Patient Education: Patient Medication Summary Completed 05/09/2011 Appointment: María Elena Appiah WPtel: [address] [place], [place] [phone] FOLLOW UP 02/22/2011 Visit Plan: Rx written for Hydrocodone 1 0/325mg #240 See Ortho 02/14/2011 Appointment: María Elena Appiah WPtel: [address] [place] [address] OMT 02/14/2011 Patient Education: Patient Medication Summary [...] work. 02/03/2011 Appointment: Lashawn Eckert WPtel: [address] [place], [place] [phone] ACUTE ILLNESS 02/03/2011 Patient Education: Patient Medication Summary Completed 02/03/2011 Visit Plan: OMT done Cont daily stretche s 01/31/2011 Appointment: María Elena Appiah WPtel: [address] [place] [address] ACUTE ILLNESS 01/31/2011 Patient Education: Patient Medication Summary Completed 01/31/2011 Visit Plan: Continue pain meds OMT done Proceed with PT No work this summer01/25/2011 Appointment: María Elena Appiah WPtel: [address] [place] [address] ACUTE ILLNESS 01/25/2011 Patient Education: Patient Medication Summary Completed 01/25/2011 Visit Plan: Start PT Long discussion abo ut getting pain meds from only and can only have max of 4grams of tylenol per day Change to Hydrocodone 10/325mg 1- 2 po TID prn pain--#180 called to [facility] 01/18/2011 Appointment: María Elena Appiah WPtel: [address] [place] [address] FOLLOW UP 01/18/2011 Patient Education: Patient Medication Summary Completed 01/18/2011 Visit Plan: Daily back stretches, moist heat, Biofreeze prn 11/29/2010 Appointment: María Elena Appiah WPtel: [address] [place] [address] ER Follow UP 11/29/2010 Patient Education: Patient Medication Summary Completed 11/29/2010 Visit Plan: Saline nasal flushes prn. Ty lenol/Motrin prn headache. Notify if persists/symptoms worsening. Finish augmentin Add Medrol Dose Pack 10/10/2010 Appointment: María Elena Appiah WPtel: [address] [place] [address] ACUTE ILLNESS 10/10/2010 Patient Education: Patient Medication Summary Completed 10/10/2010 Visit Plan: Cryotherapy x3 to multiple l esions on both forearms 07/19/2010 Appointment: María Elena Appiah WPtel: [address] [place], [place] [id number] US OFFICE SURGERY 07/19/2010 Patient Education: Patient Medication Summary Completed 07/19/2010 Appointment: María Elena Appiah WPtel: [address] [place] [address] BP CHECK 07/06/2010 Patient Education: Patient Medication Summary Completed 07/06/2010 Appointment: María Elena Appiah WPtel: [address] [place] [address] BP CHECK 06/30/2010 Patient Education: Patient Medication Summary Completed 06/30/2010 Appointment: María Elena Appiah WPtel: [address] [place] [address] BP CHECK 06/20/2010 Patient Education: Patient Medication Summary Completed 06/20/2010 Visit Plan: Change Diovan to Exforge 160 /5mg QD OMT done to thoracics BP check in 2wks 06/07/2010 Appointment: María Elena Appiah WPtel: [address] [place] [address] FOLLOW UP 06/07/2010 Patient Education: Patient Medication Summary Completed 06/07/2010 Appointment: María Elena Appiahtel: [address] [place] [address] BP CHECK 06/03/2010 Patient Education: Patient Medication Summary Completed 06/03/2010 Appointment: María Elena Appiah WPtel: [address] [place] [address] BP CHECK 06/01/2010 Patient Education: Patient Medication Summary Completed 06/01/2010 Visit Plan: Irritated skin tags to left neck x2 excised at base with scissors and base cauterized 05/30/2010 Appointment: María Elena Appiah WPtel: [address] [place] [address] OFFICE SURGERY 05/30/2010 Patient Education: Patient Medication Summary Completed 05/30/2010 Visit Plan: Saline nasal flushes prn. Ty lenol/Motrin prn headache. Notify if persists/symptoms worsening. Restart Nasonex Has allergy testing set for May 25 04/27/2010 Appointment: María Elena Appiahtel: [address] [place] [address] ACUTE ILLNESS 04/27/2010 Patient Education: Patient Medication Summary Completed 04/27/2010 Visit Plan: Saline nasal flushes prn. Ty lenol/Motrin prn headache. Notify if persists/symptoms worsening. Omnaris BID plus injections 04/05/2010 Appointment: María Elena Appiahtel: [address] [place] [address] ACUTE ILLNESS 04/05/2010 Patient Education: Patient Medication Summary Completed 04/05/2010 Visit Plan: Saline nasal flushes prn. Ty lenol/Motrin prn headache. Notify if persists/symptoms worsening. 03/09/2010 Appointment: María Elena Appiah WPtel: [address] [place] [address] ACUTE ILLNESS 03/09/2010 Patient Education: Patient Medication Summary Completed 03/09/2010 Visit Plan: Cont Clonidine as is Cont Pr emarin Fwup with surgery as scheduled 03/03/2010 Appointment: María Elena Appiahtel: [address] [place] [address] FOLLOW UP 03/03/2010 Patient Education: Patient Medication Summary Completed 03/03/2010 Visit Plan: Check Pelvic US now Discusse d Dand C vs Hysterectomy 01/17/2010 Appointment: María Elena Appiahtel: [address] [place] [address] ACUTE ILLNESS 01/17/2010 Patient Education: Patient Medication Summary Completed 01/17/2010 Visit Plan: Check fasting lab and schedu le Mammogram 2gm Na Diet Trial of Ambien 10mg qhs Fwup pending lab results 12/27/2009 Appointment: María Elena Appiahtel: [address] [place] [address] ESTABLISHED PATIENT 12/27/2009 Patient Education: Patient Medication Summary Completed 12/27/2009 Referral: Tian Canelo Pollardan WPtel: [address] [id number] [place] Referral Initiated Referral: Philipp Flores WPtel: [address] [id number] [place] Referral Appointment Requested Instructions Comment . [...]
--- OUTSIDE RECORDS SUMMARY | 2020-03-13 06:22 | XMS REPORT | CCD ---
Author Author Gale Appiah D.O. 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 Name Role Phone María Elena Appiah D.O., PP Unavailable CCM Unavailable Summary Purpose Interface Exchange Insurance Providers Payer name Policy type / Coverage type Covered libertarian ID Effective Begin Date Effective End Date [facility] Commercial Insurance [id number] Unknown Family History Family History data not found Social History Social History Element Codes Description Effective Dates Tobacco history SNOMED CT: 510441626 Never smoker 05/22/2011 Allergies, Adverse Reactions, Alerts [...] Fill Instructions Keflex 500 mg capsule RxNorm: 853526 1 Capsule(s) Oral two time s a day 10/07/2019 10/14/2019 Active Premarin 1.25 mg tablet RxNorm: 255204 1 Tablet(s) Oral QD 09/30/1906/25/2020 Active hydrocodone 10 mg-acetaminophen 325 mg tablet RxNorm: 892028 1-2 Tablet(s) Oral three times a day as needed for pain 09/30/2019 09/30/2019 Inactive gabapentin 300 mg capsule RxNorm: 783792 TAKE ONE CAPSU LE BY MOUTH EVERY NIGHT AT BEDTIME 09/19/2019 No Stop Date Active baclofen 10 mg tablet RxNorm: 521405 TAKE ONE TABLET BY MOUTH THREE TIMES A DAY NEEDED 09/19/2019 No Stop Date Active Klor-Con 8 mEq tablet,extended release RxNorm: 632826 T FARRUKH ONE TABLET BY MOUTH TWICE A DAY 1 Tablet(s) Oral two times a day 09/19/2019 10/19/2019 Act darion hydrocodone 10 mg-acetaminophen 325 mg tablet RxNorm: 551494 1-2 Tablet(s) Oral three times a day as needed for pain 09/19/2019 09/29/2019 Inactive duloxetine 60 mg capsule,delayed release RxNorm: 322662 TAKE ONE CAPSULE BY MOUTH DAILY 09/11/2019 No Stop Date Active Lipitor 10 mg tablet RxNorm: 475667 TAKE ONE TABLET BY MOUTH AT BEDTIME 09/11/2019 No Stop Date Active lisinopril 20 mg tablet RxNorm: 542614 TAKE ONE TABLET BY MOUTH DAILY .... THIS REPLACE 10MG TABLETS 09/11/2019 No Stop Date Active triamterene 75 mg-hydrochlorothiazide 50 mg tablet RxNorm: 3 32405 TAKE ONE TABLET BY MOUTH DAILY 09/11/2019 No Stop Date Active allopurinol 300 mg tablet RxNorm: 636794 TAKE ONE TABLET BY LOPEZ TH DAILY 09/11/2019 No Stop Date Active celecoxib 200 mg capsule RxNorm: 881526 TAKE ONE CAPSUL E BY MOUTH TWICE A DAY NEEDED FOR PAIN 09/11/2019 No Stop Date Active clonidine HCl 0.1 mg tablet RxNorm: 102492 TAKE ONE TAB LET BY MOUTH FOUR TIMES A DAY 09/11/2019 No Stop Date Active doxepin 25 mg capsule RxNorm: 0616665 1 Capsule(s) Oral every night at bedtime as needed for sleep 08/21/2019 11/18/2019 Active hydrocodone 10 mg-acetaminophen 325 mg tablet RxNorm: 689973 1-2 Tablet(s) PO TID 08/12/2019 09/29/2019 Inactive as needed for pa in - Previous quantity #240, will start dosing for #180 in April 2011 per Doctor Td. Medrol (Dustin) 4 mg tablets in a dose pack RxNorm: 762037 Tablet(s) Oral As Directed 07/21/2019 09/29/2019 Inactive Premarin 1.25 mg tablet RxNorm: 220747 1 Tablet(s) Oral QD 07/02/20 19 09/29/2019 Inactive hydrocodone 10 mg-acetaminophen 325 mg tablet RxNorm: 159313 1-2 Tablet(s) PO TID 07/01/2019 08/11/2019 Inactive as needed for pa in - Previous quantity #240, will start dosing for #180 in April 2011 per Doctor Td. gabapentin 300 mg capsule RxNorm: 138786 1 Capsule(s) PO QHS 201809/18/2019 Inactive celecoxib 200 mg capsule RxNorm: 451312 1 Capsule(s) Or al two times a day as needed for pain 06/27/2019 06/27/2019 Inactive Singulair 10 mg tablet RxNorm: 435753 TAKE ONE TABLET BY MOUTH JOSÉ Y 06/24/2019 No Stop Date Active furosemide 40 mg tablet RxNorm: 080226 TAKE ONE TABLET BY MOUTH EVERY MORNING NEEDED FOR EDEMA . TAKE WITH POTASSIUM 06/24/2019 No Stop Date Active doxepin 25 mg capsule RxNorm: 1003627 TAKE ONE CAPSULE B Y MOUTH EVERY NIGHT AT BEDTIME NEEDED FOR SLEEP 06/24/2019 08/20/2019 Inactive lisinopril 20 mg tablet RxNorm: 782087 TAKE ONE TABLET BY MOUTH DAILY .... THIS REPLACE 10MG TABLETS 06/24/2019 09/10/2019 Inactive nystatin-triamcinolone 100,000 unit/g-0.1 % topical cream Rx Norm: 7142057 1 Application Topical two times a day 06/12/2019 06/19/2019 Inactive apply BID for 1 week nystatin-triamcinolone 100,000 unit/g-0.1 % topical cream Rx Norm: 8602932 1 Application Topical two times a day 06/12/2019 06/11/2019 Inactive apply BID for 1 week hydrocodone 10 mg-acetaminophen 325 mg tablet RxNorm: 070622 1-2 Tablet(s) PO QID as needed for pain MUST LAST 30 DAYS 05/28/2019 06/26/2019 Inactiv e (Response to an electronic controlled substance refill request - RxReferenceNumber: [id number]) baclofen 20 mg tablet RxNorm: 182510 1 Tablet(s) PO TID as needed for muscle spasm 05/19/2019 05/27/2019 Inactive gabapentin 300 mg capsule RxNorm: 974529 1 Capsule(s) PO QHS 201805/27/2019 Inactive lisinopril 20 mg tablet RxNorm: 285774 1 Tablet(s) PO Q D TAKE ONE TABLET BY MOUTH DAILY, REPLACES 10 MG DOSE 05/19/2019 06/23/2019 Inactive doxepin 25 mg capsule RxNorm: 5219284 TAKE ONE CAPSULE B Y MOUTH EVERY NIGHT AT BEDTIME NEEDED FOR SLEEP 05/16/2019 06/14/2019 Inactive lisinopril 20 mg tablet RxNorm: 012029 TAKE ONE TABLET BY MOUTH DAILY, REPLACES 10 MG DOSE 05/16/2019 05/18/2019 Inactive Singulair 10 mg tablet RxNorm: 451796 TAKE ONE TABLET BY MOUTH JOSÉ Y 05/16/2019 06/14/2019 Inactive gabapentin 300 mg capsule RxNorm: 396133 1 Capsule(s) PO QHS 201805/04/2019 Inactive estropipate 1.5 mg tablet RxNorm: 844219 1 Tablet(s) PO QD 05/05/20 19 05/27/2019 Inactive estropipate 1.5 mg tablet RxNorm: 839698 1 Tablet(s) PO QD 05/05/20 19 05/04/2019 Inactive gabapentin 300 mg capsule RxNorm: 769706 1 Capsule(s) PO QHS 201805/18/2019 Inactive hydrocodone 10 mg-acetaminophen 325 mg tablet RxNorm: 568979 1-2 Tablet(s) PO QID as needed for pain MUST LAST 30 DAYS 04/25/2019 05/24/2019 Inactiv e (Response to an electronic controlled substance refill request - RxReferenceNumber: [id number]) metoprolol tartrate 100 mg tablet RxNorm: 820523 TAKE O NE TABLET BY MOUTH TWICE A DAY 04/24/2019 06/22/2019 Inactive cyclobenzaprine 10 mg tablet RxNorm: 941770 TAKE ONE TA BLET BY MOUTH THREE TIMES A DAY NEEDED FOR MUSCLE SPASMS 04/24/2019 05/18/2019 Inactive Lyrica 75 mg capsule RxNorm: 813624 1 Capsule(s) PO QHS 03/25/2019 Inactive duloxetine 60 mg capsule,delayed release RxNorm: 890642 TAKE ONE CAPSULE BY MOUTH DAILY 03/21/2019 05/19/2019 Inactive triamterene 75 mg-hydrochlorothiazide 50 mg tablet RxNorm: 3 25222 TAKE ONE TABLET BY MOUTH DAILY 03/21/2019 05/19/2019 Inactive Klor-Con 8 mEq tablet,extended release RxNorm: 591523 T FARRUKH ONE TABLET BY MOUTH TWICE A DAY 03/21/2019 09/18/2019 Inactive Lipitor 10 mg tablet RxNorm: 456525 TAKE ONE TABLET BY MOUTH AT BEDTIME 03/21/2019 09/10/2019 Inactive clonidine HCl 0.1 mg tablet RxNorm: 740939 TAKE ONE TAB LET BY MOUTH FOUR TIMES A DAY 03/21/2019 05/19/2019 Inactive allopurinol 300 mg tablet RxNorm: 005305 TAKE ONE TABLET BY LOPEZ TH DAILY 03/21/2019 05/19/2019 Inactive hydrocodone 10 mg-acetaminophen 325 mg tablet RxNorm: 516115 1-2 Tablet(s) PO QID as needed for pain MUST LAST 30 DAYS 02/28/2019 03/29/2019 Inactiv e (Response to an electronic controlled substance refill request [facility] [id number]) furosemide 40 mg tablet RxNorm: 054538 TAKE ONE TABLET BY MOUTH EVERY MORNING NEEDED FOR EDEMA . TAKE WITH POTASSIUM 02/21/2019 03/22/2019 Inactive cyclobenzaprine 10 mg tablet RxNorm: 317215 TAKE ONE TA BLET BY MOUTH THREE TIMES A DAY NEEDED FOR MUSCLE SPASMS 02/21/2019 04/21/2019 Inactive lisinopril 20 mg tablet RxNorm: 353574 TAKE ONE TABLET BY MOUTH DAILY, REPLACES 10 MG DOSE 02/21/2019 05/15/2019 Inactive doxepin 25 mg capsule RxNorm: 5982905 TAKE ONE CAPSULE B Y MOUTH EVERY NIGHT AT BEDTIME NEEDED FOR SLEEP 02/21/2019 05/15/2019 Inactive nystatin 100,000 unit/gram topical cream RxNorm: 190001 APPLY TO AFFECTED AREA(S) TWO TIMES A DAY 02/21/2019 03/22/2019 Inactive estradiol 1 mg tablet RxNorm: 980781 2 Tablet(s) PO QD replaces premarin 01/22/2019 05/04/2019 Inactive lisinopril 20 mg tablet RxNorm: 044913 TAKE ONE TABLET BY MOUTH DAILY, REPLACES 10 MG DOSE 01/20/2019 02/18/2019 Inactive cyclobenzaprine 10 mg tablet RxNorm: 106314 TAKE ONE TA BLET BY MOUTH THREE TIMES A DAY NEEDED FOR MUSCLE SPASMS 01/20/2019 02/18/2019 Inactive metoprolol tartrate 100 mg tablet RxNorm: 261317 TAKE O NE TABLET BY MOUTH TWICE A DAY 01/20/2019 02/18/2019 Inactive cyclobenzaprine 10 mg tablet RxNorm: 551043 TAKE ONE TA BLET BY MOUTH THREE TIMES A DAY NEEDED FOR MUSCLE SPASMS 12/19/2018 01/17/2019 Inactive lisinopril 20 mg tablet RxNorm: 736063 TAKE ONE TABLET BY MOUTH DAILY, REPLACES 10 MG DOSE 12/19/2018 01/17/2019 Inactive duloxetine 60 mg capsule,delayed release RxNorm: 127471 TAKE ONE CAPSULE BY MOUTH DAILY 12/19/2018 01/17/2019 Inactive Lipitor 10 mg tablet RxNorm: 149055 TAKE ONE TABLET BY MOUTH AT BEDTIME 12/19/2018 01/17/2019 Inactive cyclobenzaprine 10 mg tablet RxNorm: 086631 1 Tablet(s) PO TID as needed for muscle spasm 11/19/2018 12/18/2018 Inactive Singulair 10 mg tablet RxNorm: 053511 1 Tablet(s) PO QD 11/19/2018 Inactive lisinopril 20 mg tablet RxNorm: 296913 TAKE ONE TABLET BY MOUTH DAILY, REPLACES 10 MG DOSE 11/15/2018 12/18/2018 Inactive hydrocodone 10 mg-acetaminophen 325 mg tablet RxNorm: 335097 1-2 Tablet(s) PO QID as needed for pain MUST LAST 30 DAYS 11/13/2018 12/12/2018 Inactiv e (Response to an electronic controlled substance refill request - RxReferenceNumber: [id number]) nystatin 100,000 unit/gram topical cream RxNorm: 288051 APPLY TO AFFECTED AREA(S) TWO TIMES A DAY 10/23/2018 11/06/2018 Inactive lisinopril 20 mg tablet RxNorm: 409363 1 Tablet(s) PO QD replac es 10mg dose 10/18/2018 11/14/2018 Inactive hydrocodone 10 mg-acetaminophen 325 mg tablet RxNorm: 753367 1-2 Tablet(s) QID as needed for pain MUST LAST 30 DAYS 10/08/2018 11/06/2018 Inactive (Response to an electronic controlled substance refill request - RxReferenceNumber: [id number]) lisinopril 10 mg tablet RxNorm: 469510 1 Tablet(s) PO QD 10/03/2018 0 01/21/2019 Inactive Celebrex 200 mg capsule RxNorm: 113746 TAKE ONE CAPSULE BY MOUT H TWICE A DAY 09/30/2018 05/04/2019 Inactive cyclobenzaprine 10 mg tablet RxNorm: 203888 TAKE ONE TA BLET BY MOUTH THREE TIMES A DAY NEEDED FOR MUSCLE SPASMS 09/30/2018 11/18/2018 Inactive doxepin 25 mg capsule RxNorm: 7596508 TAKE ONE CAPSULE B Y MOUTH EVERY NIGHT AT BEDTIME NEEDED 09/05/2018 10/16/2018 Inactive omeprazole 40 mg capsule,delayed release RxNorm: 285994 TAKE ONE CAPSULE BY MOUTH DAILY 09/05/2018 01/21/2019 Inactive furosemide 40 mg tablet RxNorm: 887275 TAKE ONE TABLET BY MOUTH EVERY MORNING NEEDED FOR EDEMA . TAKE WITH POTASSIUM 09/05/2018 11/03/2018 Inactive phentermine 37.5 mg tablet RxNorm: 161977 1 Tablet(s) PO QAM 201701/21/2019 Inactive doxepin 25 mg capsule RxNorm: 0147087 1 Capsule(s) PO QH S as needed for sleep TAKE ONE CAPSULE BY MOUTH EVERY NIGHT AT BEDTIME NEEDED 08/27/2018 09/04/2018 Inactive Keflex 500 mg capsule RxNorm: 730877 1 Capsule(s) PO TID 08/09/2018 1 10/19/2017 Inactive Diflucan 100 mg tablet RxNorm: 202967 1 Tablet(s) PO QD 08/09/2018 Inactive Premarin 1.25 mg tablet RxNorm: 356491 2 Tablet(s) PO QD 08/09/2018 0 05/04/2019 Inactive Zofran ODT 4 mg disintegrating tablet RxNorm: 644932 1 Tablet(s) PO Q4H as needed for nausea 08/09/2018 01/21/2019 Inactive metoprolol tartrate 100 mg tablet RxNorm: 854351 TAKE O NE TABLET BY MOUTH TWICE A DAY 2018 10/04/2018 Inactive doxepin 25 mg capsule RxNorm: 6827146 TAKE ONE CAPSULE B Y MOUTH EVERY NIGHT AT BEDTIME NEEDED 2018 08/26/2018 Inactive cyclobenzaprine 10 mg tablet RxNorm: 174186 TAKE ONE TA BLET BY MOUTH THREE TIMES A DAY NEEDED FOR MUSCLE SPASMS 2018 09/29/2018 Inactive hydrocodone 10 mg-acetaminophen 325 mg tablet RxNorm: 704704 1-2 Tablet(s) QID as needed for pain MUST LAST 30 DAYS 07/29/2018 08/27/2018 Inactive (Response to an electronic controlled substance refill request - RxReferenceNumber: [id number]) nystatin 100,000 unit/gram topical powder RxNorm: 997054 Applic ation TOP BID 07/22/2018 08/04/2018 Inactive doxepin 25 mg capsule RxNorm: 7010364 1 Capsule(s) PO QHS as needed 07/22/2018 08/05/2018 Inactive triamterene 75 mg-hydrochlorothiazide 50 mg tablet RxNorm: 3 85031 TAKE ONE TABLET BY MOUTH DAILY 07/05/2018 10/02/2018 Inactive duloxetine 60 mg capsule,delayed release RxNorm: 153368 TAKE ONE CAPSULE BY MOUTH DAILY 07/05/2018 09/02/2018 Inactive Klor-Con 8 mEq tablet,extended release RxNorm: 445803 T FARRUKH ONE TABLET BY MOUTH TWICE A DAY 07/05/2018 10/02/2018 Inactive Lipitor 10 mg tablet RxNorm: 044909 TAKE ONE TABLET BY MOUTH AT BEDTIME 07/05/2018 09/02/2018 Inactive allopurinol 300 mg tablet RxNorm: 374960 TAKE ONE TABLET BY LOPEZ TH DAILY 07/05/2018 10/02/2018 Inactive clonidine HCl 0.1 mg tablet RxNorm: 419938 TAKE ONE TAB LET BY MOUTH FOUR TIMES A DAY 07/05/2018 10/02/2018 Inactive hydrocodone 10 mg-acetaminophen 325 mg tablet RxNorm: 720253 1-2 Tablet(s) QID as needed for pain MUST LAST 30 DAYS 06/28/2018 07/27/2018 Inactive (Response to an electronic controlled substance refill request - RxReferenceNumber: [id number]) MediHoney (calcium alginate-honey) 4" X 5" bandage RxNorm: 1 Application TOP QD 06/17/2018 06/26/2018 Inactive honey-hydrocolloid dressing 4" X 5" RxNorm: 1 Application TOP QD 06/17/2018 07/16/2018 Inactive furosemide 40 mg tablet RxNorm: 574741 TAKE ONE TABLET BY MOUTH EVERY MORNING NEEDED FOR EDEMA . TAKE WITH POTASSIUM 06/10/2018 07/09/2018 Inactive This is a refill request. hydrocodone 10 mg-acetaminophen 325 mg tablet RxNorm: 488779 1-2 Tablet(s) QID as needed for pain MUST LAST 30 DAYS 05/30/2018 06/27/2018 Inactive (Response to an electronic controlled substance refill request - RxReferenceNumber: [id number]) acyclovir 800 mg tablet RxNorm: 464181 1 Tablet(s) PO 5x day 201705/22/2018 Inactive Premarin 1.25 mg tablet RxNorm: 062355 1-2 Tablet(s) PO QD 05/15/20 18 07/13/2018 Inactive cyclobenzaprine 10 mg tablet RxNorm: 066707 1 Tablet(s) PO TID as needed for muscle spasm 05/09/2018 05/08/2018 Inactive Medrol (Dustin) 4 mg tablets in a dose pack RxNorm: 338855 Tablet(s) PO As Directed 05/02/2018 06/16/2018 Inactive hydrocodone 10 mg-acetaminophen 325 mg tablet RxNorm: 565506 1-2 Tablet(s) QID as needed for pain MUST LAST 30 DAYS 04/30/2018 05/29/2018 Inactive (Response to an electronic controlled substance refill request - RxReferenceNumber: [id number]) duloxetine 60 mg capsule,delayed release RxNorm: 957838 TAKE ONE CAPSULE BY MOUTH DAILY 04/16/2018 05/15/2018 Inactive Celebrex 200 mg capsule RxNorm: 445793 TAKE ONE CAPSULE BY MOUT H TWICE A DAY 04/16/2018 06/14/2018 Inactive Singulair 10 mg tablet RxNorm: 540804 TAKE ONE TABLET BY MOUTH JOSÉ Y 04/16/2018 11/19/2018 Inactive Lipitor 10 mg tablet RxNorm: 609949 TAKE ONE TABLET BY MOUTH AT BEDTIME 04/16/2018 05/15/2018 Inactive hydrocodone 10 mg-acetaminophen 325 mg tablet RxNorm: 813775 1-2 Tablet(s) QID as needed for pain MUST LAST 30 DAYS 03/29/2018 04/27/2018 Inactive (Response to an electronic controlled substance refill request - RxReferenceNumber: [id number]) cyclobenzaprine 10 mg tablet RxNorm: 163230 1 Tablet(s) PO TID as needed for muscle spasm 03/18/2018 05/09/2018 Inactive omeprazole 40 mg capsule,delayed release RxNorm: 652557 1 Capsu le(s) PO QD 02/26/2018 08/24/2018 Inactive hydrocodone 10 mg-acetaminophen 325 mg tablet RxNorm: 160580 1-2 Tablet(s) QID as needed for pain MUST LAST 30 DAYS 02/26/2018 03/27/2018 Inactive (Response to an electronic controlled substance refill request - RxReferenceNumber: [id number]) metoprolol tartrate 100 mg tablet RxNorm: 872105 1 Tablet(s) PO BID 02/18/2018 08/05/2018 Inactive Lyrica 75 mg capsule RxNorm: 984809 1 Capsule(s) PO QHS 01/30/2018 Inactive phentermine 37.5 mg tablet RxNorm: 422555 1 Tablet(s) PO QAM 201706/16/2018 Inactive hydrocodone 10 mg-acetaminophen 325 mg tablet RxNorm: 680710 1-2 Tablet(s) QID as needed for pain MUST LAST 30 DAYS 01/29/2018 02/25/2018 Inactive (Response to an electronic controlled substance refill request - RxReferenceNumber: [id number]) Klor-Con 8 mEq tablet,extended release RxNorm: 276666 1 Tablet( s) PO BID 01/14/2018 07/04/2018 Inactive allopurinol 300 mg tablet RxNorm: 089810 1 Tablet(s) PO QD 01/15/2007/04/2018 Inactive Lipitor 10 mg tablet RxNorm: 826225 1 Tablet(s) PO QHS 01/14/201812/2017 Inactive triamterene 75 mg-hydrochlorothiazide 50 mg tablet RxNorm: 3 80377 1 Tablet(s) PO QD 01/14/2018 07/04/2018 Inactive hydrocodone 10 mg-acetaminophen 325 mg tablet RxNorm: 036421 1-2 Tablet(s) QID as needed for pain MUST LAST 30 DAYS 12/27/2017 01/25/2018 Inactive (Response to an electronic controlled substance refill request - RxReferenceNumber: [id number]) Onglyza 5 mg tablet RxNorm: 632107 1 Tablet(s) PO QD 12/18/201701/29 Inactive metformin 500 mg tablet RxNorm: 768806 1 Tablet(s) PO BID 12/11/2017 12/10/2017 Inactive metformin 500 mg tablet RxNorm: 326168 1 Tablet(s) PO BID 12/11/2017 12/17/2017 Inactive furosemide 40 mg tablet RxNorm: 886305 1 Tablet(s) PO Q AM prn edema--take with potassium 12/11/2017 06/08/2018 Inactive cyclobenzaprine 10 mg tablet RxNorm: 119020 1 Tablet(s) PO TID as needed for muscle spasm 12/11/2017 03/18/2018 Inactive hydrocodone 10 mg-acetaminophen 325 mg tablet RxNorm: 704134 1-2 Tablet(s) QID as needed for pain MUST LAST 30 DAYS 10/23/2017 11/21/2017 Inactive (Response to an electronic controlled substance refill request - RxReferenceNumber: [id number]) Lipitor 10 mg tablet RxNorm: 399166 1 Tablet(s) PO QHS 10/16/201703/2018 Inactive cyclobenzaprine 10 mg tablet RxNorm: 397201 1 Tablet(s) PO TID as needed for muscle spasm 10/09/2017 12/10/2017 Inactive hydroxyzine HCl 25 mg tablet RxNorm: 671793 1 Tablet(s) PO BID as needed for anxiety 09/20/2017 01/29/2018 Inactive Effexor XR 75 mg capsule,extended release RxNorm: 587821 1 Caps ule(s) PO QD 09/20/2017 01/29/2018 Inactive metoprolol tartrate 100 mg tablet RxNorm: 789704 1 Tablet(s) PO BID 08/20/2017 02/18/2018 Inactive baclofen 20 mg tablet RxNorm: 526146 1 Tablet(s) PO TID as needed for muscle spasm 08/20/2017 01/21/2019 Inactive clonidine HCl 0.1 mg tablet RxNorm: 466799 1 Tablet(s) PO QID 08/2005/16/2018 Inactive Seroquel 25 mg tablet RxNorm: 750084 1 Tablet(s) PO QHS 08/17/2017 Inactive Seroquel 25 mg tablet RxNorm: 486035 1 Tablet(s) PO QHS 08/17/2017 Inactive Diflucan 100 mg tablet RxNorm: 153435 TAKE ONE TABLET BY MOUTH JOSÉ Y 07/25/2017 08/07/2017 Inactive hydrocodone 10 mg-acetaminophen 325 mg tablet RxNorm: 733625 1-2 Tablet(s) QID as needed for pain MUST LAST 30 DAYS 07/19/2017 08/17/2017 Inactive (Response to an electronic controlled substance refill request - RxReferenceNumber: [id number]) clindamycin 300 mg capsule RxNorm: 598974 1 Capsule(s) PO TID 07/1907/28/2017 Inactive clotrimazole-betamethasone 1 %-0.05 % topical cream RxNorm: 887607 Application TOP BID to elbow rash 07/19/2017 06/16/2018 Inactive Singulair 10 mg tablet RxNorm: 127441 Tablet(s) TAKE ONE TABLET BY MOUTH DAILY 07/18/2017 04/13/2018 Inactive triamterene 75 mg-hydrochlorothiazide 50 mg tablet RxNorm: 3 31354 1 Tablet(s) PO QD 07/18/2017 01/14/2018 Inactive Celebrex 200 mg capsule RxNorm: 312555 Capsule(s) TAKE ONE CAPSULE BY MOUTH TWICE A DAY 07/18/2017 10/15/2017 Inactive hydrocodone 10 mg-acetaminophen 325 mg tablet RxNorm: 967727 1-2 Tablet(s) QID as needed for pain MUST LAST 30 DAYS 06/19/2017 07/18/2017 Inactive (Response to an electronic controlled substance refill request - RxReferenceNumber: [id number]) hydrocodone 10 mg-acetaminophen 325 mg tablet RxNorm: 288338 1-2 Tablet(s) QID as needed for pain MUST LAST 30 DAYS 06/19/2017 06/18/2017 Inactive (Response to an electronic controlled substance refill request - RxReferenceNumber: [id number]) baclofen 20 mg tablet RxNorm: 513489 1 Tablet(s) PO TID as needed for muscle spasm 06/18/2017 08/20/2017 Inactive Medrol (Dustin) 4 mg tablets in a dose pack RxNorm: 282036 Tablet(s) PO As Directed 06/05/2017 07/18/2017 Inactive omeprazole 40 mg capsule,delayed release RxNorm: 535557 1 Capsu le(s) PO QD 04/20/2017 10/16/2017 Inactive Premarin 1.25 mg tablet RxNorm: 458304 1-2 Tablet(s) PO QD 04/11/20 17 05/15/2018 Inactive duloxetine 60 mg capsule,delayed release RxNorm: 309324 1 Capsu le(s) PO QD 04/11/2017 09/19/2017 Inactive furosemide 40 mg tablet RxNorm: 906554 1 Tablet(s) PO Q AM prn edema--take with potassium 04/11/2017 12/11/2017 Inactive Klor-Con 8 mEq tablet,extended release RxNorm: 268012 1 Tablet( s) PO BID 04/11/2017 01/14/2018 Inactive Lipitor 10 mg tablet RxNorm: 483551 1 Tablet(s) PO QHS 04/11/201702/2018 Inactive amlodipine 5 mg-benazepril 20 mg capsule RxNorm: 324026 1 Capsu le(s) PO QD 04/11/2017 01/29/2018 Inactive allopurinol 300 mg tablet RxNorm: 305061 1 Tablet(s) PO QD 04/11/20 17 01/14/2018 Inactive clonidine HCl 0.1 mg tablet RxNorm: 461948 1 Tablet(s) PO QID 04/0508/19/2017 Inactive baclofen 20 mg tablet RxNorm: 179365 1 Tablet(s) PO TID as needed for muscle spasm 04/02/2017 06/18/2017 Inactive Premarin 1.25 mg tablet RxNorm: 480773 1-2 Tablet(s) PO QD 03/20/20 17 04/10/2017 Inactive hydrocodone 10 mg-acetaminophen 325 mg tablet RxNorm: 319724 1-2 Tablet(s) QID as needed for pain MUST LAST 30 DAYS 03/14/2017 01/21/2019 Inactive (Response to an electronic controlled substance refill request - RxReferenceNumber: [id number]) metoprolol tartrate 100 mg tablet RxNorm: 485609 1 Tablet(s) PO BID 02/12/2017 08/20/2017 Inactive hydrocodone 10 mg-acetaminophen 325 mg tablet RxNorm: 681940 1-2 Tablet(s) QID as needed for pain MUST LAST 30 DAYS 02/08/2017 03/09/2017 Inactive (Response to an electronic controlled substance refill request - RxReferenceNumber: [id number]) metoprolol tartrate 100 mg tablet RxNorm: 676492 TAKE O NE TABLET BY MOUTH TWICE A DAY 01/11/2017 02/12/2017 Inactive metoprolol tartrate 100 mg tablet RxNorm: 924782 1 Tablet(s) PO BID 12/18/2016 12/17/2016 Inactive metoprolol tartrate 100 mg tablet RxNorm: 570267 1 Tablet(s) PO BID 12/18/2016 01/10/2017 Inactive furosemide 40 mg tablet RxNorm: 639026 1 Tablet(s) PO Q AM prn edema--take with potassium 12/13/2016 02/10/2017 Inactive amitriptyline 100 mg tablet RxNorm: 838384 1 Tablet(s) PO QHS 11/2812/12/2016 Inactive baclofen 20 mg tablet RxNorm: 061656 1 Tablet(s) PO TID as needed for muscle spasm 11/14/2016 04/01/2017 Inactive triamterene 75 mg-hydrochlorothiazide 50 mg tablet RxNorm: 3 27524 1 Tablet(s) PO QD 11/14/2016 11/13/2016 Inactive metolazone 2.5 mg tablet RxNorm: 128059 TAKE ONE TABLET BY MOUTH DAILY NEEDED FOR EDEMA 11/14/2016 12/12/2016 Inactive triamterene 75 mg-hydrochlorothiazide 50 mg tablet RxNorm: 3 81143 1 Tablet(s) PO QD 11/14/2016 07/18/2017 Inactive amitriptyline 50 mg tablet RxNorm: 290102 TAKE ONE TABL ET BY MOUTH AT BEDTIME NEEDED FOR SLEEP 11/14/2016 11/27/2016 Inactive Cymbalta 60 mg capsule,delayed release RxNorm: 863730 1 Capsule (s) PO QHS 11/14/2016 12/12/2016 Inactive clonidine HCl 0.1 mg tablet RxNorm: 447430 1 Tablet(s) PO QID 11/1304/04/2017 Inactive amitriptyline 50 mg tablet RxNorm: 857229 1 Tablet(s) P O QHS as needed for sleep 11/01/2016 11/27/2016 Inactive duloxetine 60 mg capsule,delayed release RxNorm: 007334 TAKE ONE CAPSULE BY MOUTH DAILY 10/20/2016 01/17/2017 Inactive allopurinol 300 mg tablet RxNorm: 538650 TAKE ONE TABLET BY LOPEZ TH DAILY 10/20/2016 01/16/2017 Inactive Lyrica 75 mg capsule RxNorm: 367638 TAKE ONE CAPSULE BY MOUTH EVERY NIGHT AT BEDTIME 10/20/2016 12/10/2016 Inactive Klor-Con 8 mEq tablet,extended release RxNorm: 996632 T FARRUKH ONE TABLET BY MOUTH TWICE A DAY 10/20/2016 01/17/2017 Inactive Celebrex 200 mg capsule RxNorm: 774221 TAKE ONE CAPSULE BY MOUT H TWICE A DAY 10/20/2016 07/18/2017 Inactive Bystolic 10 mg tablet RxNorm: 976712 TAKE ONE TABLET BY MOUTH EVERY NIGHT AT BEDTIME 10/20/2016 12/17/2016 Inactive amlodipine 5 mg-benazepril 20 mg capsule RxNorm: 095186 TAKE ONE CAPSULE BY MOUTH EVERY NIGHT AT BEDTIME -- TO REPLACE AMLODOPINE 10/20/20162016 Inactive Lipitor 10 mg tablet RxNorm: 536093 TAKE ONE TABLET BY MOUTH EVERY NIGHT AT BEDTIME 10/20/2016 01/17/2017 Inactive alprazolam 0.5 mg tablet RxNorm: 389420 3 Tablet(s) PO QHS as needed for sleep/anxiety 09/20/2016 10/31/2016 Inactive Tamiflu 75 mg capsule RxNorm: 492620 1 Capsule(s) PO QD 09/19/2016 Inactive Lyrica 75 mg capsule RxNorm: 295011 1 Capsule(s) PO QHS 09/19/2016 Inactive prednisone 20 mg tablet RxNorm: 468421 1 Tablet(s) PO QD 08/10/2016 1 10/17/2015 Inactive doxycycline hyclate 100 mg capsule RxNorm: 8082486 1 Capsule(s) PO BID 08/10/2016 08/19/2016 Inactive Medrol (Dustin) 4 mg tablets in a dose pack RxNorm: 362146 Tablet(s) PO As Directed 07/31/2016 08/22/2016 Inactive Singulair 10 mg tablet RxNorm: 937788 TAKE ONE TABLET BY MOUTH JOSÉ Y 07/27/2016 07/18/2017 Inactive hydrocodone 10 mg-acetaminophen 325 mg tablet RxNorm: 559598 1-2 Tablet(s) QID as needed for pain MUST LAST 30 DAYS 07/26/2016 08/24/2016 Inactive (Response to an electronic controlled substance refill request - RxReferenceNumber: [id number]) alprazolam 0.5 mg tablet RxNorm: 487511 3 Tablet(s) PO QHS as needed for anxiety or sleep 07/26/2016 09/20/2016 Inactive clindamycin 300 mg capsule RxNorm: 391967 1 Capsule(s) PO TID 07/2007/29/2016 Inactive Diflucan 100 mg tablet RxNorm: 127062 1 Tablet(s) PO QD 07/20/2016 Inactive Levaquin 500 mg tablet RxNorm: 666120 1 Tablet(s) PO QD 07/17/2016 Inactive Levaquin 500 mg tablet RxNorm: 602152 1 Tablet(s) PO QD 07/10/2016 Inactive Levaquin 500 mg tablet RxNorm: 080063 1 Tablet(s) PO QD 07/10/2016 Inactive mupirocin 2 % topical ointment RxNorm: 455156 TOP Apply topically to affected areas twice daily 07/06/2016 09/18/2016 Inactive Singulair 10 mg tablet RxNorm: 192325 TAKE ONE TABLET BY MOUTH JOSÉ Y 06/21/2016 01/21/2019 Inactive alprazolam 0.5 mg tablet RxNorm: 430151 TAKE THREE TABL ETS BY MOUTH AT BEDTIME NEEDED FOR SLEEP OR STRESS 05/22/2016 06/20/2016 Inactive triamterene 75 mg-hydrochlorothiazide 50 mg tablet RxNorm: 3 83323 1 Tablet(s) PO QD 04/26/2016 10/21/2016 Inactive Premarin 1.25 mg tablet RxNorm: 679053 1-2 Tablet(s) PO QD 04/26/20 16 03/20/2017 Inactive Klor-Con 8 mEq tablet,extended release RxNorm: 050324 1 Tablet( s) PO BID 04/26/2016 10/19/2016 Inactive Celebrex 200 mg capsule RxNorm: 820929 1 Capsule(s) PO BID TAKE ONE CAPSULE BY MOUTH EVERY DAY 04/26/2016 10/19/2016 Inactive Lipitor 10 mg tablet RxNorm: 353984 1 Tablet(s) PO QHS 04/26/201605/2017 Inactive allopurinol 300 mg tablet RxNorm: 057173 1 Tablet(s) PO QD TAKE ONE TABLET BY MOUTH EVERY DAY 04/26/2016 10/19/2016 Inactive amlodipine 5 mg-benazepril 20 mg capsule RxNorm: 448853 1 Capsule(s) PO QHS replaces amlodopine 04/26/2016 10/19/2016 Inactive duloxetine 60 mg capsule,delayed release RxNorm: 395016 1 Capsu le(s) PO QD 04/26/2016 10/19/2016 Inactive Bystolic 10 mg tablet RxNorm: 741749 1 Tablet(s) PO QHS 04/26/2016 Inactive Singulair 10 mg tablet RxNorm: 666031 1 Tablet(s) PO QD TAKE ONE TABLET BY MOUTH DAILY 04/26/2016 06/20/2016 Inactive clonidine HCl 0.1 mg tablet RxNorm: 464176 1 Tablet(s) PO QID 04/2610/22/2016 Inactive hydrocodone 10 mg-acetaminophen 325 mg tablet RxNorm: 444174 1-2 Tablet(s) QID as needed for pain TAKE ONE TO TWO TABLETS BY MOUTH FOUR TIMES A DAY . MUST LAST 30 DAYS 03/31/2016 04/29/2016 Inactive (Response to an electronic controlled substance refill request - RxReferenceNumber: [id number]) Klor-Con 8 mEq tablet,extended release RxNorm: 518887 T FARRUKH ONE TABLET BY MOUTH TWICE A DAY 03/24/2016 09/29/2019 Inactive prednisone 20 mg tablet RxNorm: 635810 1 Tablet(s) PO QD 03/09/2016 0 03/08/2016 Inactive prednisone 20 mg tablet RxNorm: 961821 1 Tablet(s) PO QD 03/09/2016 0 03/13/2016 Inactive alprazolam 0.5 mg tablet RxNorm: 962884 3 Tablet(s) PO QHS as needed for sleep/stress 03/02/2016 01/21/2019 Inactive mupirocin 2 % topical ointment RxNorm: 770610 TOP twice daily to affected areas of face and neck 02/21/2016 04/25/2016 Inactive clonidine HCl 0.1 mg tablet RxNorm: 723348 TAKE ONE TAB LET BY MOUTH FOUR TIMES A DAY 02/15/2016 09/29/2019 Inactive clonidine HCl 0.1 mg tablet RxNorm: 517453 1 Tablet(s) PO QID 02/1404/25/2016 Inactive Premarin 1.25 mg tablet RxNorm: 168329 1-2 Tablet(s) PO QD 02/15/20 16 03/15/2016 Inactive Klor-Con 8 mEq tablet,extended release RxNorm: 945301 T FARRKUH ONE TABLET BY MOUTH TWICE A DAY 02/15/2016 03/15/2016 Inactive potassium chloride ER 20 mEq tablet,extended release(part/cr yst) RxNorm: 097808 2 Tablet(s) PO BID 02/15/2016 03/15/2016 Inactive Macrobid 100 mg capsule RxNorm: 418373 1 Capsule(s) PO BID 01/24/20 16 01/30/2016 Inactive prednisone 20 mg tablet RxNorm: 254521 Take 3tabs PO QD x 2 days, then 2 tabs PO QD x 2 days, then 1 tab PO QD x 2 days, then 1/2 tab PO QDy x 2 days 12/23/2015 04/25/2016 Inactive Klor-Con 8 mEq tablet,extended release RxNorm: 229536 T FARRUKH ONE TABLET BY MOUTH TWICE A DAY 12/20/2015 02/14/2016 Inactive alprazolam 1 mg tablet RxNorm: 560797 1 1/2 Tablet(s) PO QHS 201501/23/2016 Inactive nystatin 100,000 unit/gram topical cream RxNorm: 897924 APPLY TO AFFECTED AREA(S) TWO TIMES A DAY 11/30/2015 12/14/2015 Inactive Singulair 10 mg tablet RxNorm: 227560 TAKE ONE TABLET BY MOUTH JOSÉ Y 11/18/2015 04/25/2016 Inactive allopurinol 300 mg tablet RxNorm: 887425 1 Tablet(s) PO QD TAKE ONE TABLET BY MOUTH EVERY DAY 10/26/2015 04/22/2016 Inactive Singulair 10 mg tablet RxNorm: 016108 TAKE ONE TABLET BY MOUTH JOSÉ Y 10/26/2015 11/17/2015 Inactive duloxetine 60 mg capsule,delayed release RxNorm: 117773 1 Capsu le(s) PO QD 10/26/2015 04/22/2016 Inactive triamterene 75 mg-hydrochlorothiazide 50 mg tablet RxNorm: 3 85372 1 Tablet(s) PO QD 10/26/2015 11/14/2016 Inactive potassium chloride ER 20 mEq tablet,extended release(part/cr yst) RxNorm: 224950 2 Tablet(s) PO BID 10/26/2015 02/14/2016 Inactive Lipitor 10 mg tablet RxNorm: 736518 1 Tablet(s) PO QHS 10/26/2015 Inactive amlodipine 5 mg-benazepril 20 mg capsule RxNorm: 459238 1 Capsule(s) PO QHS replaces amlodopine 10/26/2015 04/22/2016 Inactive Bystolic 10 mg tablet RxNorm: 469333 1 Tablet(s) PO QHS 10/26/2015 Inactive amlodipine 5 mg-benazepril 20 mg capsule RxNorm: 276567 1 Capsule(s) PO QHS replaces amlodopine 10/06/2015 10/25/2015 Inactive amlodipine 5 mg tablet RxNorm: 811968 1 Tablet(s) PO QHS 09/30/2015 0 04/25/2016 Inactive metolazone 2.5 mg tablet RxNorm: 718166 TAKE ONE TABLET BY MOUTH DAILY NEEDED FOR EDEMA 09/30/2015 01/21/2019 Inactive duloxetine 60 mg capsule,delayed release RxNorm: 518147 1 Capsu le(s) PO QD 09/30/2015 10/25/2015 Inactive cephalexin 500 mg capsule RxNorm: 713818 1 Capsule(s) PO BID 201509/23/2015 Inactive mupirocin 2 % topical ointment RxNorm: 733917 TOP twice daily to affected areas of face and neck 09/14/2015 02/20/2016 Inactive baclofen 20 mg tablet RxNorm: 548860 1 Tablet(s) PO TID as needed for muscle spasm 09/01/2015 11/14/2016 Inactive clonidine HCl 0.1 mg tablet RxNorm: 789153 1 Tablet(s) PO QID 09/0102/14/2016 Inactive alprazolam 1 mg tablet RxNorm: 055241 1 1/2 Tablet(s) PO QHS 201409/09/2015 Inactive baclofen 20 mg tablet RxNorm: 795575 1 Tablet(s) PO TID as needed for muscle spasm 07/23/2015 09/01/2015 Inactive omeprazole 40 mg capsule,delayed release RxNorm: 053284 1 Capsu le(s) PO QD 07/23/2015 04/25/2016 Inactive alprazolam 1 mg tablet RxNorm: 140136 1 1/2 Tablet(s) PO QHS 201408/10/2015 Inactive Bystolic 10 mg tablet RxNorm: 336088 1 Tablet(s) PO BID 06/24/2015 Inactive allopurinol 300 mg tablet RxNorm: 781046 1 Tablet(s) PO QD TAKE ONE TABLET BY MOUTH EVERY DAY 06/23/2015 10/20/2015 Inactive alprazolam 1 mg tablet RxNorm: 295675 1 1/2 Tablet(s) PO QHS 201407/06/2015 Inactive clonidine HCl 0.1 mg tablet RxNorm: 089425 1 Tablet(s) PO QID 06/0209/01/2015 Inactive clonidine HCl 0.1 mg tablet RxNorm: 598588 1 Tablet(s) PO QID 06/0206/01/2015 Inactive Cymbalta 60 mg capsule,delayed release RxNorm: 635863 1 Capsule (s) PO QHS 06/02/2015 08/30/2015 Inactive Cymbalta 60 mg capsule,delayed release RxNorm: 063283 1 Capsule (s) PO QHS 06/02/2015 06/01/2015 Inactive clonidine HCl 0.1 mg tablet RxNorm: 227421 1 Tablet(s) PO TID 05/3106/01/2015 Inactive replaces 0.2mg dose metolazone 2.5 mg tablet RxNorm: 602003 TAKE ONE TABLET BY MOUTH DAILY NEEDED FOR EDEMA 05/21/2015 06/19/2015 Inactive Singulair 10 mg tablet RxNorm: 255266 TAKE ONE TABLET BY MOUTH JOSÉ Y 05/21/2015 10/17/2015 Inactive Cymbalta 30 mg capsule,delayed release RxNorm: 428139 1 Capsule (s) PO QHS 05/20/2015 11/14/2016 Inactive betamethasone valerate 0.1 % topical cream RxNorm: 338167 Appli cation TOP BID 05/10/2015 04/25/2016 Inactive Bactroban 2 % topical ointment RxNorm: 150419 Application TOP BID 0 05/10/2015 06/20/2015 Inactive baclofen 20 mg tablet RxNorm: 047524 1 Tablet(s) PO TID as needed 0 04/26/2015 07/23/2015 Inactive Lipitor 10 mg tablet RxNorm: 009705 1 Tablet(s) PO QHS 04/26/201508/2016 Inactive clonidine HCl 0.1 mg tablet RxNorm: 866800 1 Tablet(s) PO TID 04/2605/30/2015 Inactive replaces 0.2mg dose Klor-Con 8 mEq tablet,extended release RxNorm: 247982 1 Tablet( s) PO BID 04/26/2015 04/25/2016 Inactive metolazone 2.5 mg tablet RxNorm: 060184 1 Tablet(s) PO QD as ne eded for edema 04/26/2015 04/25/2015 Inactive triamterene 75 mg-hydrochlorothiazide 50 mg tablet RxNorm: 3 00258 1 Tablet(s) PO QD 04/26/2015 10/22/2015 Inactive Premarin 1.25 mg tablet RxNorm: 130836 1-2 Tablet(s) PO QD 04/26/2010/22/2015 Inactive Bystolic 10 mg tablet RxNorm: 560469 1 Tablet(s) PO QAM TAKE ONE TABLET BY MOUTH EVERY MORNING 04/23/2015 06/23/2015 Inactive clonidine HCl 0.1 mg tablet RxNorm: 695759 1 Tablet(s) PO TID 03/2304/25/2015 Inactive replaces 0.2mg dose nystatin 100,000 unit/gram topical cream RxNorm: 948311 Applica tion TOP BID 03/23/2015 06/20/2015 Inactive baclofen 20 mg tablet RxNorm: 176459 1 Tablet(s) PO TID as needed 0 03/23/2015 04/25/2015 Inactive Premarin 1.25 mg tablet RxNorm: 589344 1-2 Tablet(s) PO QD 03/23/2004/25/2015 Inactive Klor-Con 8 mEq tablet,extended release RxNorm: 071341 1 Tablet( s) PO BID 03/23/2015 04/25/2015 Inactive cefdinir 300 mg capsule RxNorm: 980527 2 Capsule(s) PO QD 03/16/2015 03/25/2015 Inactive baclofen 20 mg tablet RxNorm: 198165 1 Tablet(s) PO TID as needed 0 03/02/2015 03/22/2015 Inactive allopurinol 300 mg tablet RxNorm: 700590 1 Tablet(s) PO QD TAKE ONE TABLET BY MOUTH EVERY DAY 02/22/2015 05/22/2015 Inactive Klor-Con M20 mEq tablet,extended release RxNorm: 072717 2 Tablet(s) PO BID to use with lasix 02/22/2015 06/20/2015 Inactive clonidine HCl 0.1 mg tablet RxNorm: 248783 1 Tablet(s) PO TID 02/1903/22/2015 Inactive replaces 0.2mg dose Lipitor 10 mg tablet RxNorm: 195767 1 Tablet(s) PO QHS 01/20/201506/2015 Inactive Lipitor 10 mg tablet RxNorm: 127690 1 Tablet(s) PO QHS 01/20/2015 Inactive Singulair 10 mg tablet RxNorm: 562468 1 Tablet(s) PO QD TAKE ONE TABLET BY MOUTH EVERY DAY 11/20/2014 05/18/2015 Inactive Lipitor 10 mg tablet RxNorm: 283562 1 Tablet(s) PO QHS 11/20/201408/2015 Inactive allopurinol 300 mg tablet RxNorm: 244267 1 Tablet(s) PO QD TAKE ONE TABLET BY MOUTH EVERY DAY 11/20/2014 02/16/2015 Inactive Bystolic 10 mg tablet RxNorm: 072341 1 Tablet(s) PO QAM TAKE ONE TABLET BY MOUTH EVERY MORNING 11/20/2014 04/22/2015 Inactive Klor-Con 8 mEq tablet,extended release RxNorm: 209553 1 Tablet( s) PO BID 11/20/2014 02/17/2015 Inactive baclofen 20 mg tablet RxNorm: 980985 1 Tablet(s) PO TID as needed 0 11/20/2014 01/21/2019 Inactive baclofen 20 mg tablet RxNorm: 122625 1 Tablet(s) PO TID as needed 0 10/27/2014 11/19/2014 Inactive baclofen 20 mg tablet RxNorm: 770400 1 Tablet(s) PO TID as needed 0 10/26/2014 03/01/2015 Inactive allopurinol 300 mg tablet RxNorm: 608145 1 Tablet(s) PO QD TAKE ONE TABLET BY MOUTH EVERY DAY 10/26/2014 11/20/2014 Inactive Bystolic 10 mg tablet RxNorm: 022007 1 Tablet(s) PO QAM TAKE ONE TABLET BY MOUTH EVERY MORNING 10/26/2014 11/20/2014 Inactive clonidine HCl 0.1 mg tablet RxNorm: 502693 1 Tablet(s) PO TID 09/2805/27/2019 Inactive replaces 0.2mg dose clonidine HCl 0.1 mg tablet RxNorm: 122130 1 Tablet(s) PO TID 09/2802/18/2015 Inactive replaces 0.2mg dose baclofen 20 mg tablet RxNorm: 437671 1 Tablet(s) PO TID as needed 1 11/01/2013 08/30/2014 Inactive Lipitor 10 mg tablet RxNorm: 362998 1 Tablet(s) PO QHS 08/31/2014 Inactive baclofen 20 mg tablet RxNorm: 400636 1 Tablet(s) PO TID as needed 1 11/01/2013 10/26/2014 Inactive triamterene 75 mg-hydrochlorothiazide 50 mg tablet RxNorm: 3 08709 1 Tablet(s) PO QD 08/31/2014 02/26/2015 Inactive Klor-Con 8 mEq tablet,extended release RxNorm: 163717 1 Tablet( s) PO BID 08/31/2014 11/20/2014 Inactive baclofen 20 mg tablet RxNorm: 480165 1 Tablet(s) PO TID as needed 1 09/30/2013 10/25/2014 Inactive baclofen 20 mg tablet RxNorm: 107770 1 Tablet(s) PO TID as needed 1 09/30/2013 08/31/2014 Inactive omeprazole 40 mg capsule,delayed release RxNorm: 376046 1 Capsu le(s) PO QD 07/21/2014 07/23/2015 Inactive Flonase 50 mcg/actuation nasal spray,suspension RxNorm: 8963 23 1 [place] NASAL BID 07/15/2014 04/09/2017 Inactive hydrocodone 10 mg-acetaminophen 325 mg tablet RxNorm: 749120 1-2 Tablet(s) QID as needed for pain TAKE ONE TO TWO TABLETS BY MOUTH FOUR TIMES A DAY . MUST LAST 30 DAYS 06/30/2014 07/27/2014 Inactive (Response to an electronic controlled substance refill request - RxReferenceNumber: [id number]) baclofen 20 mg tablet RxNorm: 114166 1 Tablet(s) PO TID as needed 1 07/31/2014 Inactive Singulair 10 mg tablet RxNorm: 140979 1 Tablet(s) PO QD TAKE ONE TABLET BY MOUTH EVERY DAY 05/25/2014 11/20/2014 Inactive Bystolic 10 mg tablet RxNorm: 737186 TAKE ONE TABLET BY MOUTH E VERY MORNING 05/25/2014 09/21/2014 Inactive allopurinol 300 mg tablet RxNorm: 291735 1 Tablet(s) PO QD TAKE ONE TABLET BY MOUTH EVERY DAY 05/25/2014 10/21/2014 Inactive baclofen 20 mg tablet RxNorm: 955109 1 Tablet(s) PO TID as needed 0 05/25/2014 06/29/2014 Inactive allopurinol 300 mg tablet RxNorm: 046595 TAKE ONE TABLET BY LOPEZ TH EVERY DAY 05/25/2014 09/21/2014 Inactive Singulair 10 mg tablet RxNorm: 206145 1 Tablet(s) PO QD TAKE ONE TABLET BY MOUTH EVERY DAY 05/25/2014 05/24/2014 Inactive Bystolic 10 mg tablet RxNorm: 981690 1 Tablet(s) PO QAM TAKE ONE TABLET BY MOUTH EVERY MORNING 05/25/2014 10/21/2014 Inactive metolazone 2.5 mg tablet RxNorm: 910769 1 Tablet(s) PO QD as ne eded for edema 05/18/2014 04/25/2015 Inactive Lasix 40 mg tablet RxNorm: 896892 1 Tablet(s) PO QAM s hould take potassium supplementation with this medication 05/14/2014 05/17/2014 Inactive hydrocodone 10 mg-acetaminophen 325 mg tablet RxNorm: 969508 1-2 Tablet(s) QID as needed for pain TAKE ONE TO TWO TABLETS BY MOUTH FOUR TIMES A DAY . MUST LAST 30 DAYS 05/07/2014 06/05/2014 Inactive (Response to an electronic controlled substance refill request - RxReferenceNumber: [id number]) alprazolam 0.5 mg tablet RxNorm: 281345 TAKE ONE TABLET BY MOUTH TWICE A DAY , MUST LAST 30 DAYS 05/07/2014 05/22/2016 Inactive (Response to a n electronic controlled substance refill request - RxReferenceNumber: [id number]) diclofenac sodium 75 mg tablet,delayed release RxNorm: 05256 6 1 Tablet(s) PO BID for pain 04/24/2014 07/20/2014 Inactive Celebrex 200 mg capsule RxNorm: 061848 TAKE ONE CAPSULE BY MOUT H EVERY DAY 04/24/2014 07/20/2014 Inactive alprazolam 0.5 mg tablet RxNorm: 585074 TAKE ONE TABLET BY MOUTH TWICE A DAY , MUST LAST 30 DAYS 03/24/2014 04/22/2014 Inactive (Response to a n electronic controlled substance refill request - RxReferenceNumber: [id number]) diclofenac sodium 75 mg tablet,delayed release RxNorm: 92866 6 1 Tablet(s) PO BID for pain 03/24/2014 04/24/2014 Inactive clonidine HCl 0.1 mg tablet RxNorm: 615280 1 Tablet(s) PO TID 03/2409/28/2014 Inactive replaces 0.2mg dose Klor-Con 8 mEq tablet,extended release RxNorm: 180191 1 Tablet( s) PO BID 02/26/2014 08/31/2014 Inactive diclofenac sodium 75 mg tablet,delayed release RxNorm: 53157 6 1 Tablet(s) PO BID for pain 02/25/2014 03/24/2014 Inactive hydrocodone 10 mg-acetaminophen 325 mg tablet RxNorm: 230308 1-2 Tablet(s) QID as needed for pain TAKE ONE TO TWO TABLETS BY MOUTH FOUR TIMES A DAY . MUST LAST 30 DAYS 02/25/2014 03/26/2014 Inactive (Response to an electronic controlled substance refill request - RxReferenceNumber: [id number]) alprazolam 0.5 mg tablet RxNorm: 100865 Tablet(s) PO BI D as needed for anxiety TAKE ONE TABLET BY MOUTH TWICE A DAY , MUST LAST 30 DAYS 02/25/2014 Inactive (Response to an electronic controlled [place] bstance refill request - RxReferenceNumber: [id number]) [AttnRPh: Saving apply/adjudicate RxGRP:SG20 RxBIN:[id number] RxPCN: ID#:[id number]] alprazolam 0.5 mg tablet RxNorm: 777686 Tablet(s) TAKE ONE TABLET BY MOUTH TWICE A DAY , MUST LAST 30 DAYS 01/27/2014 02/24/2014 Inactive (Respo nse to an electronic controlled substance refill request - RxReferenceNumber: [id number]) [AttnRPh: Saving apply/adjudicate RxGRP:SG20 RxBIN:[id number] RxPCN: ID#:[id number]] hydrocodone 10 mg-acetaminophen 325 mg tablet RxNorm: 448996 1-2 Tablet(s) QID as needed for pain TAKE ONE TO TWO TABLETS BY MOUTH FOUR TIMES A DAY . MUST LAST 30 DAYS 01/27/2014 02/24/2014 Inactive (Response to an electronic controlled substance refill request - RxReferenceNumber: [id number]) alprazolam 0.5 mg tablet RxNorm: 634203 TAKE ONE TABLET BY MOUTH TWICE A DAY , MUST LAST 30 DAYS 01/27/2014 01/26/2014 Inactive (Response to a n electronic controlled substance refill request - RxReferenceNumber: [id number]) Premarin 1.25 mg tablet RxNorm: 142475 1-2 Tablet(s) PO QD 01/28/20 14 07/25/2014 Inactive alprazolam 0.5 mg tablet RxNorm: 930824 TAKE ONE TABLET BY MOUTH TWICE A DAY , MUST LAST 30 DAYS 01/27/2014 01/27/2014 Inactive (Response to a n electronic controlled substance refill request - RxReferenceNumber: [id number]) hydrocodone 10 mg-acetaminophen 325 mg tablet RxNorm: 202891 TAKE ONE TO TWO TABLETS BY MOUTH FOUR TIMES A DAY . MUST LAST 30 DAYS 01/27/20142013 Inactive (Response to an electronic controlled [place] bstance refill request - RxReferenceNumber: [id number]) Celebrex 200 mg capsule RxNorm: 355747 1 Capsule(s) PO QD TAKE ONE CAPSULE BY MOUTH EVERY DAY 12/29/2013 04/27/2014 Inactive hydrocodone 10 mg-acetaminophen 325 mg tablet RxNorm: 392370 1-2 Tablet(s) PO QID as needed for severe pain 12/29/2013 01/27/2014 Inactive allopurinol 300 mg tablet RxNorm: 351283 1 Tablet(s) PO QD TAKE ONE TABLET BY MOUTH EVERY DAY 12/29/2013 05/24/2014 Inactive alprazolam 0.5 mg tablet RxNorm: 113998 TAKE ONE TABLET BY MOUTH TWICE A DAY , MUST LAST 30 DAYS 12/29/2013 01/27/2014 Inactive (Response to a n electronic controlled substance refill request - RxReferenceNumber: [id number]) Celebrex 200 mg capsule RxNorm: 486499 1 Capsule(s) PO QD TAKE ONE CAPSULE BY MOUTH EVERY DAY 12/29/2013 12/29/2013 Inactive Bystolic 10 mg tablet RxNorm: 817956 1 Tablet(s) PO QAM TAKE ONE TABLET BY MOUTH EVERY MORNING 12/29/2013 05/24/2014 Inactive Bystolic 10 mg tablet RxNorm: 003177 1 Tablet(s) PO QAM TAKE ONE TABLET BY MOUTH EVERY MORNING 12/29/2013 12/29/2013 Inactive Singulair 10 mg tablet RxNorm: 396935 1 Tablet(s) PO QD TAKE ONE TABLET BY MOUTH EVERY DAY 12/29/2013 05/25/2014 Inactive hydrocodone 10 mg-acetaminophen 325 mg tablet RxNorm: 408770 TAKE ONE TO TWO TABLETS BY MOUTH FOUR TIMES A DAY . MUST LAST 30 DAYS 12/29/20132013 Inactive (Response to an electronic controlled [place] bstance refill request - RxReferenceNumber: [id number]) Trazadone 75mg Tablet RxNorm: 1 Tablet(s) PO QHS as needed 03/23/2014 Inactive Trazadone 75mg Tablet RxNorm: 1 Tablet(s) PO QHS 12/24/20132014 Inactive Soma 350 mg tablet RxNorm: 018145 Tablet(s) PO TAKE ON E TABLET BY MOUTH THREE TIMES A DAY NEEDED FOR MUSCLE SPASMS. THIS MUST LAST 30 DAYS BETWEEN REFILLS. 12/10/2013 12/22/2013 Inactive (Appended: Cont rolled substance eRx refill - RxReferenceNumber: [id number]) diclofenac sodium 75 mg tablet,delayed release RxNorm: 36923 6 1 Tablet(s) PO BID for pain 12/10/2013 02/24/2014 Inactive allopurinol 300 mg tablet RxNorm: 492629 1 Tablet(s) PO QD 11/20/19 14 12/29/2013 Inactive alprazolam 0.5 mg tablet RxNorm: 208817 2 Tablet(s) PO BID 11/13/19 14 12/29/2013 Inactive prn clonidine 0.1 mg tablet RxNorm: 334188 1 Tablet(s) PO TID 11/12/2013 02/09/2014 Inactive replaces 0.2mg dose Klor-Con M20 mEq tablet,extended release RxNorm: 521108 2 Tablet(s) PO BID to use with lasix 11/12/2013 05/10/2014 Inactive Singulair 10 mg tablet RxNorm: 000440 1 Tablet(s) PO QD 11/12/2013 Inactive hydrocodone 10 mg-acetaminophen 325 mg tablet RxNorm: 677740 1-2 Tablet(s) PO QID as needed for severe pain 11/12/2013 12/28/2013 Inactive Bystolic 10 mg tablet RxNorm: 310962 1 Tablet(s) PO QAM 11/12/2013 Inactive Soma 350 mg tablet RxNorm: 940419 Tablet(s) PO TAKE ON E TABLET BY MOUTH THREE TIMES A DAY NEEDED FOR MUSCLE SPASMS. THIS MUST LAST 30 DAYS BETWEEN REFILLS. 10/13/2013 12/10/2013 Inactive (Appended: Cont rolled substance eRx refill - RxReferenceNumber: [id number]) hydrocodone 10 mg-acetaminophen 325 mg tablet RxNorm: 174209 1-2 Tablet(s) PO QID as needed for severe pain 10/03/2013 11/11/2013 Inactive diclofenac sodium 75 mg tablet,delayed release RxNorm: 39439 8 1 Tablet(s) PO BID for pain 09/11/2013 12/10/2013 Inactive alprazolam 0.5 mg tablet RxNorm: 264990 1 Tablet(s) PO BID May refill on 04/26/13 09/01/2013 10/30/2013 Inactive prn hydrocodone 10 mg-acetaminophen 325 mg tablet RxNorm: 971343 1-2 Tablet(s) PO QID as needed for severe pain 09/01/2013 10/02/2013 Inactive triamterene 75 mg-hydrochlorothiazide 50 mg tablet RxNorm: 3 78935 1 Tablet(s) PO QD 08/04/2013 08/31/2014 Inactive cyclobenzaprine 10 mg tablet RxNorm: 803656 1 Tablet(s) PO TID prn spasm 08/04/2013 08/13/2013 Inactive clonidine 0.1 mg tablet RxNorm: 227541 1 Tablet(s) PO TID 08/04/2013 11/11/2013 Inactive replaces 0.2mg dose cyclobenzaprine 10 mg tablet RxNorm: 493458 1 Tablet(s) PO TID prn spasm 07/23/2013 08/01/2013 Inactive hydrocodone 10 mg-acetaminophen 325 mg tablet RxNorm: 708973 2 1-2 Tablet(s) PO QID as needed for severe pain 06/09/2013 08/07/2013 Inactive Singulair 10 mg tablet RxNorm: 353959 1 Tablet(s) PO QD 05/29/2013 Inactive Klor-Con 8 mEq tablet,extended release RxNorm: 770348 1 Tablet( s) PO BID 05/29/2013 02/26/2014 Inactive allopurinol 300 mg tablet RxNorm: 500911 1 Tablet(s) PO QD 05/29/20 13 11/19/2013 Inactive Bystolic 10 mg tablet RxNorm: 739436 1 Tablet(s) PO QAM take one daily in the morning. 05/29/2013 11/11/2013 Inactive scopolamine 1.5 mg 72 hr Transderm Patch RxNorm: 637758 Application TD Q72H for motion sickness 05/26/2013 07/22/2013 Inactive Soma 350 mg tablet RxNorm: 013650 1 Tablet(s) PO TID as needed for spasm 05/19/2013 10/13/2013 Inactive diclofenac sodium 75 mg tablet,delayed release RxNorm: 16699 8 1 Tablet(s) PO BID for pain 05/14/2013 07/22/2013 Inactive allopurinol 300 mg tablet RxNorm: 409083 1 Tablet(s) PO QD 04/25/2005/28/2013 Inactive alprazolam 0.5 mg tablet RxNorm: 072914 1 Tablet(s) PO BID May refill on 04/26/13 04/25/2013 06/23/2013 Inactive prn Celebrex 200 mg capsule RxNorm: 467139 1 Capsule(s) PO QD 04/16/2013 12/29/2013 Inactive alprazolam 0.5 mg tablet RxNorm: 877973 1 Tablet(s) PO BID May refill on 04/26/13 04/16/2013 04/24/2013 Inactive prn Soma 350 mg tablet RxNorm: 932061 1 Tablet(s) PO TID as needed for spasm 04/16/2013 No Stop Date Active Lasix 40 mg tablet RxNorm: 799048 1 Tablet(s) PO RAZA ramirez take potassium supplementation with this medication 04/16/2013 06/14/2013 Inactive clonidine 0.1 mg tablet RxNorm: 894628 1 Tablet(s) PO TID 04/16/2013 08/03/2013 Inactive replaces 0.2mg dose prednisone 20 mg tablet RxNorm: 070442 1 Tablet(s) PO BID 04/16/2013 04/20/2013 Inactive diclofenac sodium 75 mg tablet,delayed release RxNorm: 09398 8 1 Tablet(s) PO BID for pain 04/14/2013 05/13/2013 Inactive hydrocodone 10 mg-acetaminophen 325 mg tablet RxNorm: 031809 2 1-2 Tablet(s) PO QID as needed for severe pain 04/14/2013 No Stop Date Active Lasix 40 mg tablet RxNorm: 157012 1 Tablet(s) PO RAZA ramirez take potassium supplementation with this medication 03/31/2013 04/15/2013 Inactive Celebrex 200 mg capsule RxNorm: 948412 1 Capsule(s) PO QD 03/31/2013 04/15/2013 Inactive alprazolam 0.5 mg tablet RxNorm: 453554 1 Tablet(s) PO BID 03/28/2004/15/2013 Inactive prn hydrocodone 10 mg-acetaminophen 325 mg tablet RxNorm: 887539 2 1-2 Tablet(s) PO QID as needed for severe pain 03/10/2013 No Stop Date Active metformin ER 500 mg 24 hr tablet,extended release RxNorm: 86 1018 1 Tablet(s) PO QD 03/06/2013 07/22/2013 Inactive clindamycin 300 mg capsule RxNorm: 266387 2 Capsule(s) PO TID 03/0503/14/2013 Inactive Zaroxolyn 2.5 mg tablet RxNorm: 096713 1 Tablet(s) PO QAM 03/05/2013 05/19/2015 Inactive amlodipine 10 mg tablet RxNorm: 174328 1 Tablet(s) PO QD 03/03/2013 0 05/25/2013 Inactive Norvasc 10 mg tablet RxNorm: 448443 1 Tablet(s) PO QD 02/28/201307/11 Inactive Celebrex 200 mg capsule RxNorm: 383094 1 Capsule(s) PO QD 02/28/2013 03/30/2013 Inactive diclofenac sodium 75 mg tablet,delayed release RxNorm: 83833 8 1 Tablet(s) PO BID for pain 02/14/2013 03/15/2013 Inactive Soma 350 mg tablet RxNorm: 126294 1 Tablet(s) PO TID as needed for spasm 02/14/2013 No Stop Date Active hydrocodone 10 mg-acetaminophen 325 mg tablet RxNorm: 036233 2 1-2 Tablet(s) PO QID as needed for severe pain 02/14/2013 No Stop Date Active Norvasc 10 mg tablet RxNorm: 169644 1 Tablet(s) PO QD 02/10/201302/09 Inactive Celebrex 200 mg capsule RxNorm: 522508 1 Capsule(s) PO QD 01/27/2013 01/26/2013 Inactive Premarin 1.25 mg tablet RxNorm: 705097 1-2 Tablet(s) PO QD 01/28/20 13 06/25/2013 Inactive alprazolam 0.5 mg tablet RxNorm: 531952 1 Tablet(s) PO BID 01/28/20 13 02/25/2013 Inactive prn amlodipine 5 mg tablet RxNorm: 224995 1 Tablet(s) PO QD 01/27/2013 Inactive Celebrex 200 mg capsule RxNorm: 190710 1 Capsule(s) PO QD 01/27/2013 02/27/2013 Inactive gabapentin 600 mg tablet RxNorm: 633816 1 Tablet(s) PO QHS 01/16/20 13 07/22/2013 Inactive Soma 350 mg tablet RxNorm: 364023 1 Tablet(s) PO TID as needed for spasm 01/15/2013 No Stop Date Active hydrocodone 10 mg-acetaminophen 325 mg tablet RxNorm: 440881 2 1-2 Tablet(s) PO QID as needed for severe pain 01/15/2013 No Stop Date Active Soma 350 mg tablet RxNorm: 938280 1 Tablet(s) PO TID as needed for spasm 01/13/2013 No Stop Date Active alprazolam 0.5 mg tablet RxNorm: 398454 1 Tablet(s) PO BID 12/31/19 13 01/26/2013 Inactive prn diclofenac sodium 75 mg tablet,delayed release RxNorm: 30640 8 1 Tablet(s) PO BID for pain 12/09/2012 01/07/2013 Inactive gabapentin 600 mg tablet RxNorm: 021093 1 Tablet(s) PO QHS 12/10/19 13 01/07/2013 Inactive hydrocodone 10 mg-acetaminophen 325 mg tablet RxNorm: 658491 2 1-2 Tablet(s) PO QID as needed for severe pain 12/02/2012 No Stop Date Active Levaquin 750 mg tablet RxNorm: 061227 1 Tablet(s) PO QD 11/21/2012 Inactive Singulair 10 mg tablet RxNorm: 125058 1 Tablet(s) PO QD 11/11/2012 Inactive clonidine 0.2 mg tablet RxNorm: 709657 1 Tablet(s) PO TID 11/11/2012 04/15/2013 Inactive alprazolam 0.5 mg tablet RxNorm: 442944 1 Tablet(s) PO BID 11/12/19 13 12/10/2012 Inactive prn Klor-Con 8 mEq tablet,extended release RxNorm: 593908 1 Tablet( s) PO BID 11/11/2012 03/04/2013 Inactive hydrocodone 10 mg-acetaminophen 325 mg tablet RxNorm: 410114 2 1-2 Tablet(s) PO QID as needed for severe pain 11/06/2012 No Stop Date Active alprazolam 0.5 mg tablet RxNorm: 867376 1 Tablet(s) PO BID 10/15/19 13 11/10/2012 Inactive prn hydrocodone-acetaminophen 10 mg-325 mg tablet RxNorm: 438265 2 1-2 Tablet(s) PO QID as needed for severe pain 10/10/2012 10/09/2012 Inactive allopurinol 300 mg tablet RxNorm: 476830 1 Tablet(s) PO QD 09/20/19 13 12/18/2012 Inactive alprazolam 0.5 mg tablet RxNorm: 728744 1 Tablet(s) PO BID 09/17/19 13 10/14/2012 Inactive prn hydrocodone-acetaminophen 10 mg-325 mg tablet RxNorm: 012273 2 1-2 Tablet(s) PO QID as needed for severe pain 08/22/2012 08/21/2012 Inactive Norvasc 10 mg tablet RxNorm: 971916 1 Tablet(s) PO QD 08/12/201201/10 Inactive Premarin 1.25 mg tablet RxNorm: 207068 1-2 Tablet(s) PO QD 07/30/20 12 12/26/2012 Inactive alprazolam 0.5 mg tablet RxNorm: 555020 1 Tablet(s) PO BID 07/29/20 12 08/27/2012 Inactive prn Klor-Con 8 mEq tablet,extended release RxNorm: 615939 1 Tablet( s) PO BID 07/29/2012 11/10/2012 Inactive hydrocodone-acetaminophen 10 mg-325 mg tablet RxNorm: 312130 2 1-2 Tablet(s) PO QID as needed for severe pain 07/29/2012 No Stop Date Active Premarin 1.25 mg tablet RxNorm: 712747 1-2 Tablet(s) PO QD 07/29/20 12 07/29/2012 Inactive clonidine 0.2 mg tablet RxNorm: 046048 1 Tablet(s) PO TID 07/29/2012 10/28/2012 Inactive ketorolac 10 mg tablet RxNorm: 009318 1 Tablet(s) PO QID prn he adache 07/18/2012 No Stop Date Active hydrocodone-acetaminophen 10 mg-325 mg tablet RxNorm: 171364 2 1-2 Tablet(s) PO QID as needed for severe pain 07/03/2012 No Stop Date Active amlodipine 5 mg tablet RxNorm: 852150 1 Tablet(s) PO QD 07/02/2012 Inactive allopurinol 300 mg tablet RxNorm: 894516 1 Tablet(s) PO QD 07/02/20 12 09/19/2012 Inactive Celebrex 200 mg capsule RxNorm: 689764 1 Capsule(s) PO QD for j oint pain 06/26/2012 10/23/2012 Inactive diclofenac sodium 75 mg tablet,delayed release RxNorm: 40830 8 1 Tablet(s) PO BID for pain 06/19/2012 09/16/2012 Inactive hydrocodone-acetaminophen 10 mg-325 mg tablet RxNorm: 248478 2 1-2 Tablet(s) PO QID as needed for severe pain 06/10/2012 No Stop Date Active alprazolam 0.5 mg tablet RxNorm: 347080 1 Tablet(s) PO BID 06/03/20 12 07/02/2012 Inactive prn ketorolac 10 mg tablet RxNorm: 939342 1 Tablet(s) PO Q8H 05/27/2012 0 01/21/2019 Inactive as needed for headache hydrocodone-acetaminophen 10 mg-325 mg tablet RxNorm: 592359 2 1-2 Tablet(s) PO QID as needed for severe pain 05/15/2012 No Stop Date Active allopurinol 300 mg tablet RxNorm: 760683 1 Tablet(s) PO QD 05/14/20 12 06/12/2012 Inactive allopurinol 300 mg tablet RxNorm: 218921 1 Tablet(s) PO QD 05/14/20 12 05/13/2012 Inactive amlodipine 5 mg tablet RxNorm: 347434 1 Tablet(s) PO QD 05/01/2012 Inactive amlodipine 5 mg Tab RxNorm: 653077 1 Tablet(s) PO QD 05/01/201204/30 Inactive Celebrex 200 mg capsule RxNorm: 337391 1 Capsule(s) PO QD for j oint pain 05/01/2012 06/25/2012 Inactive Singulair 10 mg tablet RxNorm: 122264 1 Tablet(s) PO QD 05/01/2012 Inactive alprazolam 0.5 mg tablet RxNorm: 438369 1 Tablet(s) PO BID 05/01/20 12 05/30/2012 Inactive prn Celebrex 200 mg Cap RxNorm: 787456 1 Capsule(s) PO QD for joint radu n 05/01/2012 04/30/2012 Inactive hydrocodone-acetaminophen 10 mg-325 mg tablet RxNorm: 612673 2 1-2 Tablet(s) PO QID as needed for severe pain 04/19/2012 No Stop Date Active Lasix 40 mg tablet RxNorm: 027754 1 Tablet(s) PO RAZA ramirez take potassium supplementation with this medication 04/05/2012 06/03/2012 Inactive alprazolam 0.5 mg Tab RxNorm: 393045 1 Tablet(s) PO BID 04/05/2012 Inactive prn hydrocodone-acetaminophen 10 mg-325 mg Tab RxNorm: 8407214 1-2 Tablet(s) PO QID as needed for severe pain 03/25/2012 03/24/2012 Inactive clonidine 0.2 mg Tab RxNorm: 459287 1 Tablet(s) PO TID 03/08/2012 Inactive alprazolam 0.5 mg Tab RxNorm: 066891 1 Tablet(s) PO BID 03/08/2012 Inactive prn Soma 350 mg tablet RxNorm: 399964 1 Tablet(s) PO TID for spasm 02/0903/18/2012 Inactive clonidine 0.2 mg tablet RxNorm: 408152 1 Tablet(s) PO TID 03/08/2012 07/28/2012 Inactive Celebrex 200 mg Cap RxNorm: 131869 1 Capsule(s) PO QD for joint radu n 03/01/2012 04/29/2012 Inactive amlodipine 5 mg Tab RxNorm: 489679 1 Tablet(s) PO QD 02/26/201202/24 Inactive amlodipine 5 mg Tab RxNorm: 227190 1 Tablet(s) PO QD 02/26/201204/25 Inactive Bactroban 2 % Ointment RxNorm: 182980 Application TOP QID to sores 02/23/2012 No Stop Date Active amlodipine 2.5 mg tablet RxNorm: 572518 1 Tablet(s) PO QHS 02/20/2002/25/2012 Inactive doxycycline hyclate 100 mg Cap RxNorm: 2673711 1 Capsule(s) PO BID 02/20/2012 02/29/2012 Inactive hydrocodone-acetaminophen 10 mg-325 mg Tab RxNorm: 0646686 1-2 T ablet(s) PO QID 02/08/2012 No Stop Date Active alprazolam 0.5 mg Tab RxNorm: 298614 1 Tablet(s) PO BID 02/08/2012 Inactive prn Singulair 10 mg Tab RxNorm: 693869 1 Tablet(s) PO QD 02/08/201204/30 Inactive Soma 350 mg Tab RxNorm: 644658 1 Tablet(s) PO TID for spasm 012 03/07/2012 Inactive Soma 350 mg Tab RxNorm: 193139 1 Tablet(s) PO TID for spasm 012 02/05/2012 Inactive diclofenac sodium 75 mg tablet,delayed release RxNorm: 54248 8 1 Tablet(s) PO BID for pain 02/01/2012 03/18/2012 Inactive Celebrex 200 mg Cap RxNorm: 402360 1 Capsule(s) PO QD for joint radu n 01/30/2012 02/28/2012 Inactive Lasix 40 mg Tab RxNorm: 467724 1 Tablet(s) PO QAM 01/24/2012 03/18/20 12 Inactive potassium chloride ER 20 mEq tablet,extended release(part/cr yst) RxNorm: 957358 2 Tablet(s) PO BID 01/24/2012 02/22/2012 Inactive alprazolam 0.5 mg Tab RxNorm: 883231 1 Tablet(s) PO BID 01/11/2012 Inactive prn hydrocodone-acetaminophen 10 mg-325 mg Tab RxNorm: 0485128 1-2 T ablet(s) PO QID 01/11/2012 No Stop Date Active Ambien 10 mg Tab RxNorm: 638140 1 Tablet(s) PO QHS 01/11/2012 012 Inactive Klor-Con 8 mEq Tab RxNorm: 617839 1 Tablet(s) PO BID 01/11/201201/22 Inactive diclofenac sodium 75 mg Tab, Delayed Release RxNorm: 828621 1 Tablet(s) PO BID for pain 01/10/2012 01/31/2012 Inactive Ambien 10 mg Tab RxNorm: 318708 1 Tablet(s) PO QHS 12/11/2011 012 Inactive alprazolam 0.5 mg Tab RxNorm: 316426 1 Tablet(s) PO BID 12/11/2011 Inactive prn hydrocodone 10 mg-acetaminophen 325 mg tablet RxNorm: 833448 1-2 Tablet(s) PO TID 11/28/2011 No Stop Date Active as needed for pa in - Previous quantity #240, will start dosing for #180 in April 2011 per Doctor Td. Ambien 10 mg Tab RxNorm: 283552 1 Tablet(s) PO QHS 11/09/2011 012 Inactive alprazolam 0.5 mg Tab RxNorm: 407975 1 Tablet(s) PO BID 11/09/2011 Inactive prn hydrocodone-acetaminophen 10 mg-325 mg Tab RxNorm: 5709444 1-2 T ablet(s) PO TID 11/06/2011 No Stop Date Active as needed for pain - Previous quantity #240, will start dosing for #180 in April 2011 per Doctor Td. Singulair 10 mg Tab RxNorm: 208674 1 Tablet(s) PO QD 10/13/201110/12 Inactive Singulair 10 mg Tab RxNorm: 302414 1 Tablet(s) PO QD 10/13/201102/06 Inactive hydrocodone-acetaminophen 10 mg-325 mg Tab RxNorm: 5737367 1-2 T ablet(s) PO TID 10/10/2011 10/09/2011 Inactive as needed for pain - Previous quantity #240, will start dosing for #180 in April 2011 per Doctor Td. hydrocodone-acetaminophen 10 mg-325 mg Tab RxNorm: 6312774 1-2 T ablet(s) PO TID 10/09/2011 No Stop Date Active as needed for pain - Previous quantity #240, will start dosing for #180 in April 2011 per Doctor Td. Klor-Con 8 mEq Tab RxNorm: 981244 1 Tablet(s) PO BID 10/02/201101/09 Inactive triamterene 75 mg-hydrochlorothiazide 50 mg tablet RxNorm: 3 75106 1 Tablet(s) PO QD 09/14/2011 03/06/2013 Inactive Ambien 10 mg Tab RxNorm: 192399 1 Tablet(s) PO QHS 09/14/2011 012 Inactive hydrocodone-acetaminophen 10 mg-325 mg Tab RxNorm: 8347579 1-2 T ablet(s) PO TID 09/14/2011 No Stop Date Active as needed for pain - Previous quantity #240, will start dosing for #180 in April 2011 per Doctor Td. alprazolam 0.5 mg Tab RxNorm: 950397 1 Tablet(s) PO BID 09/14/2011 Inactive prn Zithromax 500 mg Tab RxNorm: 4491095 1 Tablet(s) PO QD 09/13/201106/2012 Inactive prednisone 20 mg Tab RxNorm: 102136 1 Tablet(s) PO BID 08/31/2011 Inactive Ambien 10 mg Tab RxNorm: 686222 1 Tablet(s) PO QHS 08/17/2011 011 Inactive hydrocodone-acetaminophen 10 mg-325 mg Tab RxNorm: 7712935 1-2 T ablet(s) PO TID 08/17/2011 No Stop Date Active as needed for pain - Previous quantity #240, will start dosing for #180 in April 2011 per Doctor Td. clonidine 0.2 mg Tab RxNorm: 855203 1 Tablet(s) PO TID 08/17/201112/2011 Inactive Ambien 10 mg Tab RxNorm: 991784 1 Tablet(s) PO QHS 08/17/2011 019 Inactive alprazolam 0.5 mg Tab RxNorm: 562714 1 Tablet(s) PO BID 08/17/2011 Inactive prn hydrocodone-acetaminophen 10 mg-325 mg Tab RxNorm: 9837398 1-2 T ablet(s) PO TID 08/17/2011 08/16/2011 Inactive as needed for pain - Previous quantity #240, will start dosing for #180 in April 2011 per Doctor Td. Singulair 10 mg Tab RxNorm: 621797 1 Tablet(s) PO QD 08/17/201108/16 Inactive Klor-Con 8 mEq Tab RxNorm: 014710 1 Tablet(s) PO QD 08/17/20112011 Inactive alprazolam 0.5 mg Tab RxNorm: 134164 1 Tablet(s) PO BID 07/20/2011 Inactive prn Ambien 10 mg Tab RxNorm: 675303 1 Tablet(s) PO QHS 07/20/2011 012 Inactive Singulair 10 mg Tab RxNorm: 039035 1 Tablet(s) PO QD 07/20/201107/19 Inactive Premarin 1.25 mg tablet RxNorm: 277889 2 Tablet(s) PO QD 07/20/2011 0 01/21/2019 Inactive Premarin 1.25 mg tablet RxNorm: 789394 1-2 Tablet(s) PO QD 07/20/20 11 12/16/2011 Inactive Premarin 1.25 mg Tab RxNorm: 438659 1-2 Tablet(s) PO QD 07/06/2011 Inactive alprazolam 0.5 mg Tab RxNorm: 212925 1 Tablet(s) PO BID 06/22/2011 Inactive prn alprazolam 0.5 mg Tab RxNorm: 919081 1 Tablet(s) PO BID 06/22/2011 Inactive prn Premarin 1.25 mg Tab RxNorm: 182875 1 Tablet(s) PO QD m ay do 90 day fill if desired 06/22/2011 07/05/2011 Inactive hydrocodone-acetaminophen 10 mg-325 mg Tab RxNorm: 9297730 1-2 T ablet(s) PO TID 06/22/2011 No Stop Date Active as needed for pain - Previous quantity #240, will start dosing for #180 in April 2011 per Doctor Td. clonidine 0.2 mg Tab RxNorm: 170637 1 Tablet(s) PO TID 05/25/201103/2011 Inactive triamterene-hydrochlorothiazide 75 mg-50 mg Tab RxNorm: 3108 18 1 Tablet(s) PO QD 05/25/2011 09/13/2011 Inactive alprazolam 0.5 mg Tab RxNorm: 999753 1 Tablet(s) PO BID 05/25/2011 Inactive prn hydrocodone-acetaminophen 10 mg-325 mg Tab RxNorm: 0383250 1-2 T ablet(s) PO TID 05/25/2011 No Stop Date Active as needed for pain - Previous quantity #240, will start dosing for #180 in April 2011 per Doctor Td. Robaxin-750 750 mg Tab RxNorm: 477328 2 Tablet(s) PO QHS 05/22/2011 1 Inactive prn spasm hydrocodone-acetaminophen 10 mg-325 mg Tab RxNorm: 0257744 1-2 T ablet(s) PO TID 04/26/2011 No Stop Date Active as needed for pain - Previous quantity #240, will start dosing for #180 in April 2011 per Doctor Td. alprazolam 0.5 mg Tab RxNorm: 285958 1 Tablet(s) PO BID 04/25/2011 Inactive prn Klor-Con 8 mEq Tab RxNorm: 230023 1 Tablet(s) PO QD 03/30/20112010 Inactive Klor-Con 8 mEq Tab RxNorm: 325177 1 Tablet(s) PO QD 03/29/20112010 Inactive hydrocodone-acetaminophen 10 mg-325 mg Tab RxNorm: 0077946 1-2 T ablet(s) PO TID 03/20/2011 04/25/2011 Inactive as needed for pain - Previous quantity #240, will start dosing for #180 in April 2011 per Doctor Td. alprazolam 0.5 mg Tab RxNorm: 766755 1 Tablet(s) PO BID prn 011 03/30/2011 Inactive Ambien 10 mg Tab RxNorm: 112591 1 Tablet(s) PO QHS 03/01/2011 011 Inactive cyclobenzaprine 10 mg Tab RxNorm: 948497 1 Tablet(s) PO TID 011 03/18/2012 Inactive cyclobenzaprine 10 mg Tab RxNorm: 713598 1 Tablet(s) PO TID 011 01/08/2011 Inactive cyclobenzaprine 10 mg Tab RxNorm: 621611 1 Tablet(s) PO TID 011 12/20/2010 Inactive terbinafine 250 mg Tab RxNorm: 067668 1 Tablet(s) PO QD 12/12/2010 Inactive triamterene-hydrochlorothiazide 75 mg-50 mg Tab RxNorm: 3108 18 1 Tablet(s) PO QD 12/07/2010 06/04/2011 Inactive Klor-Con 8 8 mEq Tab RxNorm: 406529 1 Tablet(s) PO QD 12/07/201001/08 Inactive Premarin 1.25 mg Tab RxNorm: 685552 2 Tablet(s) PO QD 12/07/201001/08 Inactive clonidine 0.2 mg Tab RxNorm: 716019 1 Tablet(s) PO TID 12/07/2010 Inactive hydrocodone-acetaminophen 7.5 mg-650 mg Tab RxNorm: 076635 1 Ta blet(s) PO Q4H 12/05/2010 01/21/2019 Inactive hydrocodone-acetaminophen 7.5 mg-650 mg Tab RxNorm: 772651 1 Ta blet(s) PO Q4H 10/26/2010 11/14/2010 Inactive hydrocodone-acetaminophen 7.5 mg-650 mg Tab RxNorm: 647941 1 Ta blet(s) PO Q4H 10/13/2010 10/25/2010 Inactive hydrocodone-acetaminophen 7.5 mg-650 mg Tab RxNorm: 023082 1 Ta blet(s) PO Q4H 09/15/2010 09/12/2010 Inactive alprazolam 0.5 mg Tab RxNorm: 360002 1 Tablet(s) PO BID prn 011 09/12/2010 Inactive terbinafine 250 mg Tab RxNorm: 693394 1 Tablet(s) PO QD 09/05/2010 Inactive hydrocodone-acetaminophen 7.5 mg-650 mg Tab RxNorm: 421535 1 Ta blet(s) PO Q4H 08/29/2010 09/17/2010 Inactive alprazolam 0.5 mg Tab RxNorm: 366764 1 Tablet(s) PO BID prn 010 09/27/2010 Inactive alprazolam 0.5 mg Tab RxNorm: 666057 1 Tablet(s) PO BID prn 010 09/06/2010 Inactive Klor-Con 8 mEq Tab RxNorm: 391755 1 Tablet(s) PO QD 08/08/20102010 Inactive hydrocodone-acetaminophen 7.5 mg-650 mg Tab RxNorm: 609200 1 Ta blet(s) PO Q4H 08/08/2010 08/27/2010 Inactive Ambien 10 mg Tab RxNorm: 102073 1 Tablet(s) PO QHS 08/08/2010 Inactive clonidine 0.2 mg Tab RxNorm: 022892 1 Tablet(s) PO TID 08/08/2010 Inactive Premarin 1.25 mg Tab RxNorm: 674603 2 Tablet(s) PO QD 08/08/201009/12 Inactive Ambien 10 mg Tab RxNorm: 144686 1 Tablet(s) PO QHS 07/18/2010 Inactive alprazolam 0.5 mg Tab RxNorm: 184064 1 Tablet(s) PO BID prn 08/07/2010 Inactive hydrocodone-acetaminophen 7.5 mg-650 mg Tab RxNorm: 142994 1 Ta blet(s) PO Q4H 07/12/2010 07/31/2010 Inactive clonidine 0.2 mg Tab RxNorm: 521703 1 Tablet(s) PO TID 06/20/2010 Inactive terbinafine 250 mg Tab RxNorm: 427059 1 Tablet(s) PO QD 05/24/2010 Inactive Clonidine 0.2 mg Tab RxNorm: 047870 1 Tablet(s) PO TID 05/24/201006/2010 Inactive Ambien 10 mg Tab RxNorm: 275681 1 Tablet(s) PO QHS 05/24/2010 Inactive alprazolam 0.5 mg Tab RxNorm: 800818 1 Tablet(s) PO BID 05/24/2010 Inactive Klor-Con 8 mEq Tab RxNorm: 454316 1 Tablet(s) PO QD 05/24/20102009 Inactive alprazolam 0.5 mg Tab RxNorm: 883817 2 Tablet(s) PO QD prn 05/24/2007/17/2010 Inactive triamterene-hydrochlorothiazide 75 mg-50 mg Tab RxNorm: 3108 18 1 Tablet(s) PO QD 05/24/2010 11/19/2010 Inactive Ambien 10 mg Tab RxNorm: 304623 1 Tablet(s) PO QHS 05/23/2010 Inactive Alprazolam 0.5 mg Tab RxNorm: 700573 2 Tablet(s) PO QD prn 05/23/20 10 05/23/2010 Inactive Premarin 1.25 mg Tab RxNorm: 510685 2 Tablet(s) PO QD 05/19/201007/12 Inactive Hydrocodone-Acetaminophen 7.5 mg-650 mg Tab RxNorm: 116158 1 Ta blet(s) PO Q4H 05/19/2010 03/20/2011 Inactive Prednisone 20 mg Tab RxNorm: 550196 1 Tablet(s) PO BID 05/17/2010 Inactive Prednisone 20 mg Tab RxNorm: 586002 1 Tablet(s) PO BID 05/06/201001/2010 Inactive Premarin 1.25 mg Tab RxNorm: 979057 Tablet(s) PO 2 M-W-F, and 1 Ue-Fq-Cov-Sun 05/05/2010 08/02/2010 Inactive Premarin 1.25 mg Tab RxNorm: 815542 Tablet(s) PO 2 M-W-F, and 1 Tk-So-Smn-Sun 05/04/2010 05/04/2010 Inactive Premarin 1.25 mg Tab RxNorm: 280726 Tablet(s) PO 2 M-W-F, and 1 Ru-Uw-Ewl-Sun 05/04/2010 05/03/2010 Inactive Prednisone 20 mg Tab RxNorm: 942693 1 Tablet(s) PO BID 04/27/2010 Inactive Alprazolam 0.5 mg Tab RxNorm: 177296 2 Tablet(s) PO QD prn 04/26/20 10 05/22/2010 Inactive Clindamycin 300 mg Cap RxNorm: 307473 2 Capsule(s) PO TID 04/05/2010 04/18/2010 Inactive Terbinafine 250 mg Tab RxNorm: 257696 1 Tablet(s) PO QD 04/04/2010 Inactive Hydrocodone-Acetaminophen 7.5 mg-650 mg Tab RxNorm: 553567 1 Ta blet(s) PO Q4H 03/30/2010 04/18/2010 Inactive Avelox 400 mg Tab RxNorm: 101862 1 Tablet(s) PO QD 03/09/2010 Inactive Hydrocodone-Acetaminophen 7.5 mg-650 mg Tab RxNorm: 450932 1 Ta blet(s) PO Q4H 03/08/2010 03/27/2010 Inactive Alprazolam 0.5 mg Tab RxNorm: 797973 2 Tablet(s) PO QD prn 03/08/20 10 04/25/2010 Inactive Klor-Con 8 mEq Tab RxNorm: 941586 1 Tablet(s) PO QD when takes lasi x 03/07/2010 09/29/2019 Inactive Premarin 1.25 mg Tab RxNorm: 732478 1 Tablet(s) PO QD 03/03/201003/11 Inactive Alprazolam 0.5 mg Tab RxNorm: 498913 1 Tablet(s) PO BID PRN 010 No Stop Date Active triamterene-hydrochlorothiazide 75 mg-50 mg Tab RxNorm: 3108 18 1 Tablet(s) PO QD 02/09/2010 02/03/2011 Inactive Hydrocodone-Acetaminophen 10 mg-750 mg Tab RxNorm: 059785 1 Tablet(s) PO Q4H PRN 02/09/2010 03/20/2011 Inactive Clonidine 0.2 mg Tab RxNorm: 841306 1 Tablet(s) PO TID 01/13/201009/2009 Inactive Alprazolam 0.5 mg Tab RxNorm: 820870 1 Tablet(s) PO BID PRN 010 01/12/2010 Inactive Hydrocodone-Acetaminophen 10 mg-750 mg Tab RxNorm: 363641 1 Tablet(s) PO Q4H PRN 01/13/2010 01/12/2010 Inactive ANGELIQ 1 mg-0.5 mg Tab RxNorm: 7247507 1 Tablet(s) PO QD 12/27/2009 01/23/2010 Inactive Lasix 40 mg Tab RxNorm: 139101 1 Tablet(s) PO QAM 12/14/2009 06/11/20 10 Inactive Vitamin B12 1000mcg Tablet RxNorm: 1 Tablet(s) PO QD No Start Date Active cyclobenzaprine 10 mg tablet RxNorm: 893851 1 Tablet(s) PO TID as needed DO NOT USE WITH BACLOFEN No Start Date Active Vitamin D 5,000 unit Tab RxNorm: 1 Tablet(s) PO QD No Start Date Active vitamin E (dl, acetate) 400 unit Cap RxNorm: 634708 1 Capsule(s ) PO QD No Start Date Active Benadryl 25 mg Cap RxNorm: 4403367 Capsule(s) PO PRN No Start Date Inactive amitriptyline 100 mg tablet RxNorm: 577216 1 Tablet(s) PO QHS No St art Date 11/27/2016 Inactive Zithromax Z-Dustin 250 mg tablet RxNorm: 797952 Tablet(s) PO as di rected No Start Date 07/22/2013 Inactive Klor-Con 8 mEq tablet,extended release RxNorm: 858911 1 Tablet( s) PO BID No Start Date 07/28/2012 Inactive scopolamine 1.5 mg 72 hr Transderm Patch RxNorm: 482138 Application TD Q72H for motion sickness No Start Date 05/25/2013 Inactive Klonopin 1 mg tablet RxNorm: 516020 1-2 Tablet(s) PO QHS as nee ded for sleep No Start Date 06/20/2015 Inactive Klor-Con M20 mEq tablet,extended release RxNorm: 384752 2 Tablet(s) PO BID to use with lasix No Start Date 11/11/2013 Inactive Bystolic 5 mg tablet RxNorm: 383014 1 Tablet(s) PO QD No Start Date 1 Inactive Bystolic 10 mg tablet RxNorm: 115801 1 Tablet(s) PO BID No Start Da te 07/06/2015 Inactive Premarin 1.25 mg Tab RxNorm: 255504 Tablet(s) PO 2 -W-, and 1 Zw-Ov-Ihj-Sun No Start Date 05/03/2010 Inactive baclofen 20 mg tablet RxNorm: 287030 1 Tablet(s) PO TID as needed for muscle spasm No Start Date 07/22/2015 Inactive hydrocodone-acetaminophen 7.5 mg-650 mg Tab RxNorm: 722447 1 Tablet(s) PO Q4H as needed for pain No Start Date 03/20/2011 Inactive albuterol sulfate 1.25 mg/3 mL Neb Solution RxNorm: 107555 1 Unit Dose INH Q4H 2boxes No Start Date 09/06/2015 Inactive Butrans 20 mcg/hour Transderm Patch RxNorm: 387285 1 TD WEEKLY apply to skin weekly after removing previous. No Start Date 07/22/2013 Inactive Medrol (Dustin) 4 mg tablets in a dose pack RxNorm: 090976 Tablet(s) PO As Directed No Start Date 07/30/2016 Inactive hydrocodone-acetaminophen 10 mg-325 mg Tab RxNorm: 6464095 1-2 Tablet(s) PO TID as needed for pain No Start Date 03/19/2011 Inactive Klonopin 1 mg tablet RxNorm: 256720 1 Tablet(s) PO QHS No Start Date 02/28/2016 Inactive honey topical RxNorm: topical No Start Date 06/16/2018 Inactive Clonidine 0.2 mg Tab RxNorm: 915774 1 Tablet(s) PO TID No Start Date 01/12/2010 Inactive ketorolac 10 mg tablet RxNorm: 589146 1 Tablet(s) PO Q8H No Start D ate 03/18/2012 Inactive as needed for headache Singulair 10 mg Tab RxNorm: 837836 1 Tablet(s) PO QD No Start Date Inactive Premarin 1.25 mg Tab RxNorm: 693402 1 Tablet(s) PO QD No Start Date 1 Inactive Flonase 50 mcg/Actuation Nasal [place] RxNorm: 7615536 1 [place] CECELIA AL BID No Start Date 03/18/2012 Inactive Terbinafine 250 mg Tab RxNorm: 385897 1 Tablet(s) PO QD No Start Da te 04/03/2010 Inactive Fexofenadine 180 mg Tab RxNorm: 0312844 1 Tablet(s) PO QD No Start Date 09/06/2015 Inactive baclofen 20 mg tablet RxNorm: 298116 1 Tablet(s) PO TID as needed N o Start Date 05/25/2014 Inactive Diovan 160 mg Tab RxNorm: 401547 1 Tablet(s) PO QD No Start Date 09/12 Inactive mupirocin 2 % topical ointment RxNorm: 129033 1 Application TOP QID No Start Date 04/25/2016 Inactive ZOFRAN ODT 4 mg Tab, Rapid Dissolve RxNorm: 043600 1 Tablet(s) PO Q4H No Start Date 03/18/2012 Inactive as needed for nausea and vomiting Alprazolam 0.5 mg Tab RxNorm: 233083 1 Tablet(s) PO BID PRN No Star t Date 01/12/2010 Inactive cyclobenzaprine 10 mg tablet RxNorm: 581829 1 Tablet(s) PO TID as needed for muscle spasm No Start Date 10/08/2017 Inactive Albuterol 0.083% Aerosol Solution RxNorm: 1 Appl ication INH Q4H Use one ampule every 4 hrs with nebulizer as needed for shortness of breath. No Start Date 10/09/2010 Inactive lorazepam 1 mg tablet RxNorm: 696847 1 1/2 Tablet(s) PO QHS No Star t Date 02/02/2016 Inactive Melatonin 3 mg Tab RxNorm: 361224 Tablet(s) PO PRN No Start Date 07/11 Inactive Medrol (Dustin) 4 mg Tabs in a Dose Pack RxNorm: 752759 Tablet(s) PO N o Start Date 11/28/2010 Inactive lorazepam 1 mg tablet RxNorm: 743268 1 Tablet(s) PO QHS as need ed for sleep No Start Date 01/30/2016 Inactive hydrocodone-acetaminophen 10 mg-325 mg Tab RxNorm: 1462841 1-2 Tablet(s) PO QID as needed for severe pain No Start Date 03/24/2012 Inactive celecoxib 200 mg capsule RxNorm: 212119 1 Capsule(s) PO BID No Star t Date 06/26/2019 Inactive amlodipine 5 mg-benazepril 20 mg capsule RxNorm: 489426 1 Capsu le(s) PO QD No Start Date 04/10/2017 Inactive Bystolic 20 mg tablet RxNorm: 351558 1/2 Tablet(s) PO QAM No Start Date 01/23/2016 Inactive Bystolic 20 mg tablet RxNorm: 268683 1 Tablet(s) PO QAM No Start Da te 04/25/2016 Inactive Ambien 10 mg Tab RxNorm: 609784 1 Tablet(s) PO QHS No Start Date 05/11 Inactive Klor-Con 8 mEq Tab RxNorm: 898604 1 Tablet(s) PO QD when takes lasix No Start Date 03/06/2010 Inactive aspirin 81 mg tablet RxNorm: 623657 1 Tablet(s) PO QD No Start Date 0 01/29/2018 Inactive hydrocodone-acetaminophen 10 mg-325 mg Tab RxNorm: 3250939 1-2 T ablet(s) PO QID No Start Date 01/10/2012 Inactive Bystolic 10 mg tablet RxNorm: 803521 1 Tablet(s) PO QAM take one daily in the morning. No Start Date 05/28/2013 Inactive nystatin 100,000 unit/mL Oral Susp RxNorm: 194981 5 Milliliter( s) PO QID No Start Date 03/18/2012 Inactive swish and spit scopolamine 1.5 mg 72 hr Transderm Patch RxNorm: 744202 1 Unit Dose TD Q72H for motion sickness No Start Date 12/23/2013 Inactive Hydrocodone-Acetaminophen 10 mg-750 mg Tab RxNorm: 344569 1 Tablet(s) PO Q4H PRN No Start Date 01/12/2010 Inactive Soma 350 mg tablet RxNorm: 738878 1 Tablet(s) PO TID as needed for spasm No Start Date 01/12/2013 Inactive baclofen 10 mg tablet RxNorm: 020265 1 Tablet(s) PO TID as needed for muscle spasm No Start Date 09/18/2019 Inactive Soma 350 mg Tab RxNorm: 429966 1 Tablet(s) PO TID for spasm No Star t Date 01/31/2012 Inactive Co Q-10 400 mg capsule RxNorm: 791147 1 Capsule(s) PO QD No Start D ate 01/21/2019 Inactive nystatin 100,000 unit/gram topical cream RxNorm: 870708 Applica tion TOP BID No Start Date 03/22/2015 Inactive Exforge 5 mg-160 mg Tab RxNorm: 960157 1 Tablet(s) PO QD No Start D ate 10/09/2010 Inactive Hydrocodone-Acetaminophen 7.5 mg-650 mg Tab RxNorm: 990103 1 Ta blet(s) PO Q4H No Start Date 03/07/2010 Inactive Robaxin-750 750 mg Tab RxNorm: 628864 1-2 Tablet(s) PO TID prn spasm No Start Date 05/21/2011 Inactive amlodipine 5 mg tablet RxNorm: 202972 1 Tablet(s) PO QHS No Start D ate 09/29/2015 Inactive oxycodone-acetaminophen 10 mg-325 mg tablet RxNorm: 2538731 1-2 Tablet(s) PO Q6H No Start Date 06/16/2018 Inactive Triamterene-Hydrochlorothiazide 75 mg-50 mg Tab RxNorm: 3108 18 1 Tablet(s) PO QD No Start Date 02/08/2010 Inactive Alprazolam 0.5 mg Tab RxNorm: 442215 2 Tablet(s) PO QD prn No Start Date 03/07/2010 Inactive Bystolic 20 mg tablet RxNorm: 456141 1 Tablet(s) PO QAM No Start Da te 08/17/2015 Inactive ketorolac 10 mg tablet RxNorm: 997792 1 Tablet(s) PO QID prn he adache No Start Date 07/17/2012 Inactive acyclovir 800 mg Tab RxNorm: 165821 1 Tablet(s) PO BID No Start Date 03/18/2012 Inactive duloxetine 60 mg capsule,delayed release RxNorm: 083385 1 Capsu le(s) PO QD No Start Date 09/29/2015 Inactive Norvasc 5 mg tablet RxNorm: 839521 1 Tablet(s) PO QHS No Start Date 1 10/18/2014 Inactive promethazine 25 mg tablet RxNorm: 381110 1 Tablet(s) PO Q8H use sparingly No Start Date 07/22/2013 Inactive alprazolam 0.5 mg tablet RxNorm: 155788 3 Tablet(s) PO QHS No Start Date 06/06/2015 Inactive Lunesta 3 mg tablet RxNorm: 558344 1 Tablet(s) PO QHS No Start Date 0 09/20/2017 Inactive hydrocodone-acetaminophen 10 mg-325 mg Tab RxNorm: 7028401 1-2 Tablet(s) PO TID as needed for pain No Start Date 12/10/2011 Inactive Coricidin HBP Cough & Cold 4 mg-30 mg Tab RxNorm: 3208225 Tablet (s) PO PRN No Start Date 10/09/2010 Inactive Bactroban 2 % Ointment RxNorm: 384619 Application TOP QID to so res No Start Date 02/22/2012 Inactive Flonase 50 mcg/actuation Nasal [place] RxNorm: 447890 2 [place] QHS No Start Date 03/03/2014 Inactive Medication Administered No Medication Administered data Immunizations Vaccine Codes Date Status Tetanus, Diptheria, Pertussis CVX: 115 02/27/2014 Results Observation Observation Code Item Item Code Result Date S vice Location COMPREHENSIVE METABOLIC 02408 AST 15 U/L 2019 Unknown COMPREHENSIVE METABOLIC 42066 ALT 13 U/L 2019 Unknown COMPREHENSIVE METABOLIC 02394 BUN 12 mg/dL 2019 Unknown COMPREHENSIVE METABOLIC 61347 ALBUMIN 3.9 g/dL 2019 Unknown COMPREHENSIVE METABOLIC 96705 CHLORIDE 97 mmol/L 2019 Unknown COMPREHENSIVE METABOLIC 32184 Bili Total 0.4 mg/dL 09/29 Unknown COMPREHENSIVE METABOLIC 84840 ALK PHOS 130 U/L 2019 Unknown COMPREHENSIVE METABOLIC 13137 SODIUM 136 mmol/L 09/29 Unknown COMPREHENSIVE METABOLIC 27366 CREATININE 0.92 mg/dL 09/11 Unknown COMPREHENSIVE METABOLIC 40782 CALCIUM 9.1 mg/dL 2019 Unknown COMPREHENSIVE METABOLIC 18800 POTASSIUM 4.4 mmol/L 09/29 Unknown COMPREHENSIVE METABOLIC 33014 Total Protein 6.2 g/dL Unknown COMPREHENSIVE METABOLIC 79217 Glucose 391 mg/dL 2019 Unknown COMPREHENSIVE METABOLIC 36756 Bicarbonate 30 mmol/L 09/11 Unknown COMPREHENSIVE METABOLIC 96144 AGAP 9 mmol/L 2019 Unknown MEAN GLUC 5684941 Calc Mean Gluc 332 mg/dL 09/29/2019 Unkn own COMPLETE BLOOD COUNT 8239052 WBC 7.0 10e9/L 09/29/19 Unknown COMPLETE BLOOD COUNT 6902447 RBC 4.69 10e12/L 2019 Unknown COMPLETE BLOOD COUNT 7283956 HEMOGLOBIN 14.6 g/dL 09/29/19 Unknown COMPLETE BLOOD COUNT 8347968 HEMATOCRIT 45.2 % 09/29/19 Unknown COMPLETE BLOOD COUNT 7088215 MCV 96.4 fL 0 Unknown COMPLETE BLOOD COUNT 1196964 MCH 31.1 pg 0 Unknown COMPLETE BLOOD COUNT 9123790 MCHC 32.3 g/dL 0 Unknown COMPLETE BLOOD COUNT 0869050 PLATELET COUNT 209 10e9/L Unknown COMPLETE BLOOD COUNT 8789800 Mean Plt Volume 9.8 fL Unknown COMPLETE BLOOD COUNT 6954150 Neut Auto 48.1 % 0 Unknown COMPLETE BLOOD COUNT 8242669 Lymph Auto 36.5 % 09/29/19 20 Unknown COMPLETE BLOOD COUNT 1348678 Story Auto 8.6 % 0 Unknown COMPLETE BLOOD COUNT 7609024 RDW 13.4 % 0 Unknown COMPLETE BLOOD COUNT 4997684 Eos Auto 6.5 % 0 Unknown COMPLETE BLOOD COUNT 2278775 Baso Auto 0.3 % 0 Unknown COMPLETE BLOOD COUNT 1535174 Neutrophil Abs 3.37 10e9/L Unknown COMPLETE BLOOD COUNT 7953401 Lymphocyte Abs 2.56 10e9/L Unknown COMPLETE BLOOD COUNT 8143927 Monocyte Abs 0.60 10e9/L 09/11 Unknown COMPLETE BLOOD COUNT 9857818 Eosinophil Abs 0.46 10e9/L Unknown COMPLETE BLOOD COUNT 8771312 RDW-SD 45.9 fL 0 Unknown COMPLETE BLOOD COUNT 6379134 Basophil Abs 0.02 10e9/L 09/11 Unknown LIPID GROUP 04448 Cholesterol 248 mg/dL 09/29/2019 Unkno wn LIPID GROUP 02348 Triglyceride 898 mg/dL 09/29/2019 Unkn own LIPID GROUP 19130 HDL CHOLESTEROL 41 mg/dL 09/29/2019 U nknown LIPID GROUP 69401 Chol/HDL Ratio 6.05 ratio 09/29/2019 U nknown LIPID GROUP 92378 NON-HDL Chol 207 mg/dL 09/29/2019 Unkn own LIPID GROUP 32494 LDL Cholesterol N/A Trig >400 020 Unknown GLYCOSYLATED HEMOGLOBIN TEST 97119 Hgb A1c 29195-5 13.2 % 0 09/29/2019 Unknown FREE T4 30315 T4 Free 0.75 ng/dL 09/29/2019 Unknown GFR CALC 2006675 GFR Non Afr Amr >60 mL/min 09/29/2019 Un known GFR CALC 6132440 GFR Afr Amr >60 mL/min 09/29/2019 Unknow n THYROID STIMULATING HORMONE 46467 TSH 4.245 uIU/mL 09/29/2019 Unknown COMPLETE BLOOD COUNT 1453503 WBC 10.7 10e9/L 018 Unknown COMPLETE BLOOD COUNT 6946274 RBC 4.59 10e12/L 2017 Unknown COMPLETE BLOOD COUNT 4450399 HEMOGLOBIN 14.8 g/dL 12/11/19 18 Unknown COMPLETE BLOOD COUNT 5479450 HEMATOCRIT 44.9 % 12/11/19 18 Unknown COMPLETE BLOOD COUNT 5343767 MCV 97.8 fL 8 Unknown COMPLETE BLOOD COUNT 6570762 MCH 32.2 pg 8 Unknown COMPLETE BLOOD COUNT 1290805 MCHC 33.0 g/dL 8 Unknown COMPLETE BLOOD COUNT 5410961 PLATELET COUNT 261 10e9/L 10/2017 Unknown COMPLETE BLOOD COUNT 6233059 Mean Plt Volume 9.5 fL 10/2017 Unknown COMPLETE BLOOD COUNT 3830734 Neut Auto 59.9 % 8 Unknown COMPLETE BLOOD COUNT 9873886 Lymph Auto 27.4 % 12/11/19 18 Unknown COMPLETE BLOOD COUNT 3145196 Story Auto 8.2 % 8 Unknown COMPLETE BLOOD COUNT 8222523 RDW 13.3 % 8 Unknown COMPLETE BLOOD COUNT 7973668 Eos Auto 4.1 % 8 Unknown COMPLETE BLOOD COUNT 5791936 Baso Auto 0.4 % 8 Unknown COMPLETE BLOOD COUNT 2651010 Neutrophil Abs 6.41 10e9/L Unknown COMPLETE BLOOD COUNT 9555825 Lymphocyte Abs 2.93 10e9/L Unknown COMPLETE BLOOD COUNT 6812054 Monocyte Abs 0.88 10e9/L 10/2017 Unknown COMPLETE BLOOD COUNT 2562670 Eosinophil Abs 0.44 10e9/L Unknown COMPLETE BLOOD COUNT 9400722 RDW-SD 46.2 fL 8 Unknown COMPLETE BLOOD COUNT 9507215 Basophil Abs 0.04 10e9/L 10/2017 Unknown THYROID STIMULATING HORMONE 28609 TSH 4.015 uIU/mL 12/10/2017 Unknown COMPREHENSIVE METABOLIC 94102 AST 25 U/L 2017 Unknown COMPREHENSIVE METABOLIC 32893 ALT 17 U/L 2017 Unknown COMPREHENSIVE METABOLIC 98377 BUN 19 mg/dL 2017 Unknown COMPREHENSIVE METABOLIC 67373 ALBUMIN 4.0 g/dL 2017 Unknown COMPREHENSIVE METABOLIC 49195 CHLORIDE 91 mmol/L 2017 Unknown COMPREHENSIVE METABOLIC 73171 Bili Total 0.5 mg/dL 12/10 Unknown COMPREHENSIVE METABOLIC 52408 ALK PHOS 75 U/L 2017 Unknown COMPREHENSIVE METABOLIC 68561 SODIUM 136 mmol/L 12/10 Unknown COMPREHENSIVE METABOLIC 46653 CREATININE 1.05 mg/dL 10/2017 Unknown COMPREHENSIVE METABOLIC 52096 CALCIUM 8.9 mg/dL 2017 Unknown COMPREHENSIVE METABOLIC 28690 POTASSIUM 3.4 mmol/L 12/10 Unknown COMPREHENSIVE METABOLIC 38075 Total Protein 6.5 g/dL Unknown COMPREHENSIVE METABOLIC 11941 Glucose 138 mg/dL 2017 Unknown COMPREHENSIVE METABOLIC 19605 Bicarbonate 35 mmol/L 10/2017 Unknown COMPREHENSIVE METABOLIC 13347 AGAP 10 mmol/L 2017 Unknown MEAN GLUC 1807085 Calc Mean Gluc 171 mg/dL 12/10/2017 Unkn own LIPID GROUP 39612 Cholesterol 204 mg/dL 12/10/2017 Unkno wn LIPID GROUP 20735 Triglyceride 411 mg/dL 12/10/2017 Unkn own LIPID GROUP 03034 HDL CHOLESTEROL 50 mg/dL 12/10/2017 U nknown LIPID GROUP 56986 Chol/HDL Ratio 4.08 ratio 12/10/2017 U nknown LIPID GROUP 74126 NON-HDL Chol 154 mg/dL 12/10/2017 Unkn own LIPID GROUP 55599 LDL Cholesterol N/A Trig >400 018 Unknown GLYCOSYLATED HEMOGLOBIN TEST 77247 Hgb A1c 33203-7 7.6 % 0 12/10/2017 Unknown FREE T4 14760 T4 Free 1.40 ng/dL 12/10/2017 Unknown GFR CALC 6959649 GFR Non Afr Amr 55 mL/min 12/10/2017 Unk nown GFR CALC 3164038 GFR Afr Amr >60 mL/min 12/10/2017 Unknow n GFR CALC 6499810 GFR Non Afr Amr 48 mL/min 06/28/2017 Unk nown GFR CALC 5619921 GFR Afr Amr 59 mL/min 06/28/2017 Unknown COMPREHENSIVE METABOLIC 12645 AST 32 U/L 2016 Unknown COMPREHENSIVE METABOLIC 41500 ALT 22 U/L 2016 Unknown COMPREHENSIVE METABOLIC 28880 BUN 23 mg/dL 2016 Unknown COMPREHENSIVE METABOLIC 92826 ALBUMIN 4.7 g/dL 2016 Unknown COMPREHENSIVE METABOLIC 44442 CHLORIDE 89 mmol/L 2016 Unknown COMPREHENSIVE METABOLIC 24622 Bili Total 0.5 mg/dL 06/28 Unknown COMPREHENSIVE METABOLIC 53526 ALK PHOS 90 U/L 2016 Unknown COMPREHENSIVE METABOLIC 17247 SODIUM 135 mmol/L 06/28 Unknown COMPREHENSIVE METABOLIC 11123 CREATININE 1.18 mg/dL 06/10 Unknown COMPREHENSIVE METABOLIC 83924 CALCIUM 9.7 mg/dL 2016 Unknown COMPREHENSIVE METABOLIC 18891 POTASSIUM 3.5 mmol/L 06/28 Unknown COMPREHENSIVE METABOLIC 91379 Total Protein 7.7 g/dL Unknown COMPREHENSIVE METABOLIC 09203 Glucose 129 mg/dL 2016 Unknown COMPREHENSIVE METABOLIC 93222 Bicarbonate 34 mmol/L 06/10 Unknown COMPREHENSIVE METABOLIC 86827 AGAP 12 mmol/L 2016 Unknown LIPID GROUP 34750 HDL TEST 64 MG/DL 08/27/2014 Unknown LIPID GROUP 10786 TRIG 222 MG/DL 08/27/2014 Unknown LIPID GROUP 29227 TEST LDL 209 MG/DL 08/27/2014 Unknown LIPID GROUP 98479 CHOL 317 MG/DL 08/27/2014 Unknown LIPID GROUP 57314 RCHOL/HDL 4.95 RATIO 08/27/2014 Unknow n LIPID GROUP 59945 NON-HDL CH 253 MG/DL 08/27/2014 Unknow n GFR CALC 2398720 GFR AA >60 ML/MIN 08/27/2014 Unknown GFR CALC 8310024 GFR NON-AA >60 ML/MIN 08/27/2014 Unknown COMPLETE BLOOD COUNT 8614386 WBC 7.0 10e9/L 08/27/20 14 Unknown COMPLETE BLOOD COUNT 7795394 RBC 4.98 10e12/L 2013 Unknown COMPLETE BLOOD COUNT 1626046 HGB 15.6 g/dL 4 Unknown COMPLETE BLOOD COUNT 7450970 HCT DET 46.5 % 4 Unknown COMPLETE BLOOD COUNT 8158374 MCV 93.4 fL 4 Unknown COMPLETE BLOOD COUNT 6928130 MCH 31.3 pg 4 Unknown COMPLETE BLOOD COUNT 9634521 MCHC 33.5 g/dL 4 Unknown COMPLETE BLOOD COUNT 6267998 PLT 309 10e9/L 08/27/20 14 Unknown COMPLETE BLOOD COUNT 2218423 MPV 9.6 fL 4 Unknown COMPLETE BLOOD COUNT 8500773 CADEN % 57.2 % 4 Unknown COMPLETE BLOOD COUNT 8269837 LY % 33.2 % 4 Unknown COMPLETE BLOOD COUNT 8313914 MON % 7.3 % 4 Unknown COMPLETE BLOOD COUNT 9034663 EOS % 2.0 % 4 Unknown COMPLETE BLOOD COUNT 5484688 BASO % 0.3 % 4 Unknown COMPLETE BLOOD COUNT 4660393 RDW 13.7 % 4 Unknown COMPLETE BLOOD COUNT 0572540 ABS CADEN 4.00 10e9/L 014 Unknown COMPLETE BLOOD COUNT 4068832 ABS LYMPH 2.32 10e9/L 014 Unknown COMPLETE BLOOD COUNT 8426166 ABS MONO 0.51 10e9/L 014 Unknown COMPLETE BLOOD COUNT 1361627 ABS EOS 0.14 10e9/L 014 Unknown COMPLETE BLOOD COUNT 9543900 ABS BASO 0.02 10e9/L 014 Unknown COMPLETE BLOOD COUNT 4540796 RDW-SD 45.1 fL 4 Unknown COMPREHENSIVE METABOLIC 16062 AST 13 U/L 2013 Unknown COMPREHENSIVE METABOLIC 20199 ALT 11 IU/L 2013 Unknown COMPREHENSIVE METABOLIC 84637 BUN 23 MG/DL 2013 Unknown COMPREHENSIVE METABOLIC 14193 ALBUMIN 4.4 GM/DL 2013 Unknown COMPREHENSIVE METABOLIC 76884 CHLORIDE 99 MMOL/L 2013 Unknown COMPREHENSIVE METABOLIC 29154 BILI TOT 0.5 MG/DL 2013 Unknown COMPREHENSIVE METABOLIC 96778 ALK PHOS 56 U/L 2013 Unknown COMPREHENSIVE METABOLIC 14138 SODIUM 138 MMOL/L 08/27 Unknown COMPREHENSIVE METABOLIC 76138 CREATININE 0.95 MG/DL 08/10 Unknown COMPREHENSIVE METABOLIC 77433 CALCIUM 9.8 MG/DL 2013 Unknown COMPREHENSIVE METABOLIC 49725 POTASSIUM 3.5 MMOL/L 08/27 Unknown COMPREHENSIVE METABOLIC 18157 PROT TOT 6.8 GM/DL 2013 Unknown COMPREHENSIVE METABOLIC 57255 Glucose 90 MG/DL 2013 Unknown COMPREHENSIVE METABOLIC 50164 BICARB 34 MMOL/L 2013 Unknown COMPREHENSIVE METABOLIC 71847 ANION GAP 5 MEQ/L 2013 Unknown LIPASE 56243 LIPASE 11 IU/L 07/21/2014 Unknown AMYLASE 77249 AMYLASE 39 IU/L 07/21/2014 Unknown HEMOGLOBIN A1C (GLYCOSYLATED) 3300942 A1C HPLC 07829-9 6.2 % 03/05/2013 Unknown THYROID STIMULATING HORMONE 11521 TSH 6.986 uIU/ML 03/05/2013 Unknown COMPLETE BLOOD COUNT 9480454 WBC 12.7 10e9/L 013 Unknown COMPLETE BLOOD COUNT 2747833 RBC 4.53 10e12/L 2012 Unknown COMPLETE BLOOD COUNT 2604160 HGB 14.7 g/dL 3 Unknown COMPLETE BLOOD COUNT 9670035 HCT DET 43.1 % 3 Unknown COMPLETE BLOOD COUNT 4060853 MCV 95.1 fL 3 Unknown COMPLETE BLOOD COUNT 9410734 MCH 32.5 pg 3 Unknown COMPLETE BLOOD COUNT 0655345 MCHC 34.1 g/dL 3 Unknown COMPLETE BLOOD COUNT 3911375 PLT 346 10e9/L 03/05/20 13 Unknown COMPLETE BLOOD COUNT 7217185 MPV 9.5 fL 3 Unknown COMPLETE BLOOD COUNT 1722772 CADEN % 67.6 % 3 Unknown COMPLETE BLOOD COUNT 3339465 LY % 22.1 % 3 Unknown COMPLETE BLOOD COUNT 3865643 MON % 6.6 % 3 Unknown COMPLETE BLOOD COUNT 1222952 EOS % 3.3 % 3 Unknown COMPLETE BLOOD COUNT 7232988 BASO % 0.4 % 3 Unknown COMPLETE BLOOD COUNT 4909049 RDW 14.0 % 3 Unknown COMPLETE BLOOD COUNT 9860977 ABS CADEN 8.59 10e9/L 013 Unknown COMPLETE BLOOD COUNT 3727119 ABS LYMPH 2.81 10e9/L 013 Unknown COMPLETE BLOOD COUNT 9004113 ABS MONO 0.84 10e9/L 013 Unknown COMPLETE BLOOD COUNT 8976036 ABS EOS 0.42 10e9/L 013 Unknown COMPLETE BLOOD COUNT 1403228 ABS BASO 0.05 10e9/L 013 Unknown COMPLETE BLOOD COUNT 7572442 RDW-SD 46.0 fL 06/26/201 3 Unknown FREE T4 40368 FREE T4 1.14 NG/DL 03/05/2013 Unknown COMPREHENSIVE METABOLIC 73461 AST 17 U/L 2012 Unknown COMPREHENSIVE METABOLIC 79032 ALT 12 IU/L 2012 Unknown COMPREHENSIVE METABOLIC 08738 BUN 24 MG/DL 2012 Unknown COMPREHENSIVE METABOLIC 77062 ALBUMIN 4.2 GM/DL 2012 Unknown COMPREHENSIVE METABOLIC 44162 CHLORIDE 93 MMOL/L 2012 Unknown COMPREHENSIVE METABOLIC 74926 BILI TOT 0.5 MG/DL 2012 Unknown COMPREHENSIVE METABOLIC 23141 ALK PHOS 75 U/L 2012 Unknown COMPREHENSIVE METABOLIC 09498 SODIUM 141 MMOL/L 03/05 Unknown COMPREHENSIVE METABOLIC 99319 CREATININE 1.36 MG/DL 02/09 Unknown COMPREHENSIVE METABOLIC 28029 CALCIUM 9.2 MG/DL 2012 Unknown COMPREHENSIVE METABOLIC 29327 POTASSIUM 3.1 MMOL/L 03/05 Unknown COMPREHENSIVE METABOLIC 95824 PROT TOT 6.9 GM/DL 2012 Unknown COMPREHENSIVE METABOLIC 93140 Glucose 123 MG/DL 2012 Unknown COMPREHENSIVE METABOLIC 16844 BICARB 36 MMOL/L 2012 Unknown COMPREHENSIVE METABOLIC 59452 ANION GAP 12 MEQ/L 2012 Unknown GFR CALC 8617084 GFR AA 51.0L ML/MIN 03/05/2013 Unknow n GFR CALC 6043567 GFR NON-AA 42.0L ML/MIN 03/05/2013 Unkno wn COMPREHENSIVE METABOLIC 73676 AST 14 U/L 2012 Unknown COMPREHENSIVE METABOLIC 62288 ALT 11 IU/L 2012 Unknown COMPREHENSIVE METABOLIC 98299 BUN 16 MG/DL 2012 Unknown COMPREHENSIVE METABOLIC 48751 ALBUMIN 4.2 GM/DL 2012 Unknown COMPREHENSIVE METABOLIC 18121 CHLORIDE 98 MMOL/L 2012 Unknown COMPREHENSIVE METABOLIC 71573 BILI TOT 0.4 MG/DL 2012 Unknown COMPREHENSIVE METABOLIC 10729 ALK PHOS 77 U/L 2012 Unknown COMPREHENSIVE METABOLIC 36456 SODIUM 139 MMOL/L 09/25 Unknown COMPREHENSIVE METABOLIC 77559 CREATININE 0.86 MG/DL 09/10 Unknown COMPREHENSIVE METABOLIC 90762 CALCIUM 9.5 MG/DL 2012 Unknown COMPREHENSIVE METABOLIC 61255 POTASSIUM 3.8 MMOL/L 09/25 Unknown COMPREHENSIVE METABOLIC 34055 PROT TOT 6.8 GM/DL 2012 Unknown COMPREHENSIVE METABOLIC 27662 Glucose 91 MG/DL 2012 Unknown COMPREHENSIVE METABOLIC 36391 BICARB 32 MMOL/L 2012 Unknown COMPREHENSIVE METABOLIC 29540 ANION GAP 9 MEQ/L 2012 Unknown FREE T4 48818 FREE T4 0.98 NG/DL 09/25/2012 Unknown THYROID STIMULATING HORMONE 96500 TSH 1.736 uIU/ML 09/25/2012 Unknown C-REACTIVE PROTEIN (CRP) QUANT 19778 CRP 2.3 MG/DL 09/25/2012 Unknown COMPLETE BLOOD COUNT 7345575 WBC 11.9 10e9/L 013 Unknown COMPLETE BLOOD COUNT 5473259 RBC 4.87 10e12/L 2012 Unknown COMPLETE BLOOD COUNT 6560937 HGB 15.1 g/dL 3 Unknown COMPLETE BLOOD COUNT 1810473 HCT DET 44.8 % 3 Unknown COMPLETE BLOOD COUNT 6296768 MCV 92.0 fL 3 Unknown COMPLETE BLOOD COUNT 2757322 MCH 31.0 pg 3 Unknown COMPLETE BLOOD COUNT 8016009 MCHC 33.7 g/dL 3 Unknown COMPLETE BLOOD COUNT 3359959 PLT 343 10e9/L 09/25/19 13 Unknown COMPLETE BLOOD COUNT 4638144 MPV 9.0 fL 3 Unknown COMPLETE BLOOD COUNT 1805069 CADEN % 68.2 % 3 Unknown COMPLETE BLOOD COUNT 3468582 LY % 22.4 % 3 Unknown COMPLETE BLOOD COUNT 6157289 MON % 6.4 % 3 Unknown COMPLETE BLOOD COUNT 3018795 EOS % 2.7 % 3 Unknown COMPLETE BLOOD COUNT 6273497 BASO % 0.3 % 3 Unknown COMPLETE BLOOD COUNT 0513388 RDW 13.8 % 3 Unknown COMPLETE BLOOD COUNT 1973636 ABS CADEN 8.12 10e9/L 013 Unknown COMPLETE BLOOD COUNT 7338010 ABS LYMPH 2.67 10e9/L 013 Unknown COMPLETE BLOOD COUNT 6099802 ABS MONO 0.76 10e9/L 013 Unknown COMPLETE BLOOD COUNT 2264141 ABS EOS 0.32 10e9/L 013 Unknown COMPLETE BLOOD COUNT 6730947 ABS BASO 0.04 10e9/L 013 Unknown COMPLETE BLOOD COUNT 5431678 RDW-SD 45.6 fL 3 Unknown GFR CALC 9389676 GFR AA >60 ML/MIN 09/25/2012 Unknown GFR CALC 7732532 GFR NON-AA >60 ML/MIN 09/25/2012 Unknown ERYTHROCYTE SEDIMENTATION RATE 62089 ESR 19 MM/HR 05/06/2012 Unknown VITAMIN B 12 FOLIC ACID 57584|39475 VIT B 12 922 PG/ML 04/11 Unknown VITAMIN B 12 FOLIC ACID 62331|12459 FOLIC ACID 13.6 NG/ML Unknown URIC ACID 34402 URIC ACID 7.8 MG/DL 05/06/2012 Unknown COMPLETE BLOOD COUNT 53131 WBC 11.9 10e9/L 012 Unknown COMPLETE BLOOD COUNT 75565 RBC 5.30 10e12/L 2011 Unknown COMPLETE BLOOD COUNT 05004 HGB 16.6 g/dL 2 Unknown COMPLETE BLOOD COUNT 30934 HCT DET 47.2 % 2 Unknown COMPLETE BLOOD COUNT 66402 MCV 89.1 fL 2 Unknown COMPLETE BLOOD COUNT 65300 MCH 31.3 pg 2 Unknown COMPLETE BLOOD COUNT 69093 MCHC 35.2 g/dL 2 Unknown COMPLETE BLOOD COUNT 87895 PLT 362 10e9/L 05/06/20 12 Unknown COMPLETE BLOOD COUNT 70533 MPV 9.4 fL 2 Unknown COMPLETE BLOOD COUNT 90485 CADEN % 68.2 % 2 Unknown COMPLETE BLOOD COUNT 81068 LY % 22.0 % 2 Unknown COMPLETE BLOOD COUNT 75569 MON % 6.9 % 2 Unknown COMPLETE BLOOD COUNT 20526 EOS % 2.6 % 2 Unknown COMPLETE BLOOD COUNT 92199 BASO % 0.3 % 2 Unknown COMPLETE BLOOD COUNT 95344 RDW 12.8 % 2 Unknown COMPLETE BLOOD COUNT 55029 ABS CADEN 8.12 10e9/L 012 Unknown COMPLETE BLOOD COUNT 40110 ABS LYMPH 2.62 10e9/L 08/27/2 012 Unknown COMPLETE BLOOD COUNT 11888 ABS MONO 0.82 10e9/L 012 Unknown COMPLETE BLOOD COUNT 01144 ABS EOS 0.31 10e9/L 012 Unknown COMPLETE BLOOD COUNT 91917 ABS BASO 0.04 10e9/L 012 Unknown COMPLETE BLOOD COUNT 07617 RDW-SD 41.5 fL 2 Unknown GFR CALC 4034792 GFR AA >60 ML/MIN 05/06/2012 Unknown GFR CALC 8002025 GFR NON-AA 58.0L ML/MIN 05/06/2012 Unkno wn FREE T4 87588 FREE T4 1.15 NG/DL 05/06/2012 Unknown THYROID STIMULATING HORMONE 21439 TSH 1.568 uIU/ML 05/06/2012 Unknown COMPREHENSIVE METABOLIC 51100 AST 20 U/L 2011 Unknown COMPREHENSIVE METABOLIC 01881 ALT 12 IU/L 2011 Unknown COMPREHENSIVE METABOLIC 24692 BUN 20 MG/DL 2011 Unknown COMPREHENSIVE METABOLIC 24381 ALBUMIN 4.5 GM/DL 2011 Unknown COMPREHENSIVE METABOLIC 35083 CHLORIDE 91 MMOL/L 2011 Unknown COMPREHENSIVE METABOLIC 20182 BILI TOT 0.4 MG/DL 2011 Unknown COMPREHENSIVE METABOLIC 06910 ALK PHOS 73 U/L 2011 Unknown COMPREHENSIVE METABOLIC 66456 SODIUM 139 MMOL/L 05/06 Unknown COMPREHENSIVE METABOLIC 34948 CREATININE 1.02 MG/DL 04/11 Unknown COMPREHENSIVE METABOLIC 68825 CALCIUM 9.7 MG/DL 2011 Unknown COMPREHENSIVE METABOLIC 74233 POTASSIUM 3.1 MMOL/L 05/06 Unknown COMPREHENSIVE METABOLIC 83275 PROT TOT 7.3 GM/DL 2011 Unknown COMPREHENSIVE METABOLIC 32280 Glucose 118 MG/DL 2011 Unknown COMPREHENSIVE METABOLIC 70327 BICARB 33 MMOL/L 2011 Unknown COMPREHENSIVE METABOLIC 42162 ANION GAP 15 MEQ/L 2011 Unknown Procedures Procedure Codes Date ROUTINE VENIPUNCTURE CPT-4: 11542 09/29/2019 URINALYSIS NONAUTO W/O SCOPE CPT-4: 09329 09/29/2019 COMPREHEN METABOLIC PANEL CPT-4: 37761 09/29/2019 LIPID PANEL CPT-4: 31598 09/29/2019 A1C HPLC CPT-4: 42735 09/29/2019 ASSAY OF FREE THYROXINE CPT-4: 12496 09/29/2019 ASSAY THYROID STIM HORMONE CPT-4: 90869 09/29/2019 COMPLETE CBC W/AUTO DIFF WBC CPT-4: 96646 09/29/2019 URINALYSIS NONAUTO W/O SCOPE CPT-4: 95398 09/30/2018 MICROALBUMIN QUANTITATIVE CPT-4: 33309 09/30/2018 CEFTRIAXONE SODIUM INJECTION CPT-4: J0696 06/19/2018 THER/PROPH/DIAG INJ SC/IM CPT-4: 65069 06/19/2018 CEFTRIAXONE SODIUM INJECTION CPT-4: J0696 06/17/2018 THER/PROPH/DIAG INJ SC/IM CPT-4: 41979 06/17/2018 THER/PROPH/DIAG INJ SC/IM CPT-4: 69074 05/16/2018 KETOROLAC TROMETHAMINE INJ CPT-4: J1885 05/16/2018 ONDANSETRON HCL INJECTION CPT-4: J2405 05/16/2018 THER/PROPH/DIAG INJ SC/IM CPT-4: 33450 05/16/2018 ROUTINE VENIPUNCTURE CPT-4: 50961 03/20/2018 COMPREHEN METABOLIC PANEL CPT-4: 05220 03/20/2018 DEXAMETHASONE SODIUM PHOS CPT-4: J1100 02/11/2018 THER/PROPH/DIAG INJ SC/IM CPT-4: 65242 02/11/2018 TRIAMCINOLONE ACET INJ NOS CPT-4: J3301 02/11/2018 CEFTRIAXONE SODIUM INJECTION CPT-4: J0696 02/01/2018 THER/PROPH/DIAG INJ SC/IM CPT-4: 52015 02/01/2018 CEFTRIAXONE SODIUM INJECTION CPT-4: J0696 01/30/2018 THER/PROPH/DIAG INJ SC/IM CPT-4: 96910 01/30/2018 ROUTINE VENIPUNCTURE CPT-4: 31353 12/10/2017 ASSAY OF FREE THYROXINE CPT-4: 69867 12/10/2017 ASSAY THYROID STIM HORMONE CPT-4: 53964 12/10/2017 COMPREHEN METABOLIC PANEL CPT-4: 16532 12/10/2017 COMPLETE CBC W/AUTO DIFF WBC CPT-4: 42491 12/10/2017 LIPID PANEL CPT-4: 53459 12/10/2017 A1C HPLC CPT-4: 92952 12/10/2017 CEFTRIAXONE SODIUM INJECTION CPT-4: J0696 12/10/2017 THER/PROPH/DIAG INJ SC/IM CPT-4: 74799 12/10/2017 CEFTRIAXONE SODIUM INJECTION CPT-4: J0696 12/07/2017 THER/PROPH/DIAG INJ SC/IM CPT-4: 61483 12/07/2017 DEXAMETHASONE SODIUM PHOS CPT-4: J1100 12/07/2017 THER/PROPH/DIAG INJ SC/IM CPT-4: 62602 12/07/2017 CEFTRIAXONE SODIUM INJECTION CPT-4: J0696 10/08/2017 THER/PROPH/DIAG INJ SC/IM CPT-4: 00673 10/08/2017 CEFTRIAXONE SODIUM INJECTION CPT-4: J0696 09/21/2017 THER/PROPH/DIAG INJ SC/IM CPT-4: 99600 09/21/2017 CEFTRIAXONE SODIUM INJECTION CPT-4: J0696 09/20/2017 THER/PROPH/DIAG INJ SC/IM CPT-4: 52761 09/20/2017 REMOVAL OF NAIL PLATE CPT-4: 74108 08/29/2017 THER/PROPH/DIAG INJ SC/IM CPT-4: 52328 08/29/2017 TRIAMCINOLONE ACET INJ NOS CPT-4: J3301 08/29/2017 CEFTRIAXONE SODIUM INJECTION CPT-4: J0696 08/29/2017 THER/PROPH/DIAG INJ SC/IM CPT-4: 99823 08/29/2017 DESTRUCT PREMALG LESION (Cryosurgery) CPT-4: 87673 ROUTINE VENIPUNCTURE CPT-4: 45939 06/27/2017 ASSAY OF FREE THYROXINE CPT-4: 96994 06/27/2017 ASSAY THYROID STIM HORMONE CPT-4: 73033 06/27/2017 COMPREHEN METABOLIC PANEL CPT-4: 50237 06/27/2017 COMPLETE CBC W/AUTO DIFF WBC CPT-4: 22984 06/27/2017 EXC TR-EXT B9+REECE 0.5 CM< CPT-4: 47409 01/24/2017 THER/PROPH/DIAG INJ SC/IM CPT-4: 89404 08/02/2016 DEXAMETHASONE SODIUM PHOS CPT-4: J1100 08/02/2016 DESTRUCT PREMALG LESION (Cryosurgery) CPT-4: 44182 EXC TR-EXT B9+REECE 0.5 CM< CPT-4: 21019 08/01/2016 AEROBIC WOUND CULTURE & STN CPT-4: 49263 07/06/2016 CEFTRIAXONE SODIUM INJECTION CPT-4: J0696 05/25/2016 THER/PROPH/DIAG INJ SC/IM CPT-4: 39276 05/25/2016 THER/PROPH/DIAG INJ SC/IM CPT-4: 71278 04/26/2016 DEXAMETHASONE SODIUM PHOS CPT-4: J1100 04/26/2016 CEFTRIAXONE SODIUM INJECTION CPT-4: J0696 04/26/2016 THER/PROPH/DIAG INJ SC/IM CPT-4: 91095 04/26/2016 THER/PROPH/DIAG INJ SC/IM CPT-4: 68437 02/09/2016 TRIAMCINOLONE ACET INJ NOS CPT-4: J3301 02/09/2016 URINALYSIS NONAUTO W/O SCOPE CPT-4: 03629 01/24/2016 URINE CULTURE/ COLONY COUNT CPT-4: 61054 01/24/2016 THER/PROPH/DIAG INJ SC/IM CPT-4: 63789 12/08/2015 TRIAMCINOLONE ACET INJ NOS CPT-4: J3301 12/08/2015 THER/PROPH/DIAG INJ SC/IM CPT-4: 33766 10/07/2015 TRIAMCINOLONE ACET INJ NOS CPT-4: J3301 10/07/2015 DESTRUCT PREMALG LESION (Cryosurgery) CPT-4: 17268 THER/PROPH/DIAG INJ SC/IM CPT-4: 51098 03/16/2015 METHYLPREDNISOLONE 40 MG INJ CPT-4: J1030 03/16/2015 DESTRUCT PREMALG LESION (Cryosurgery) CPT-4: 83555 THER/PROPH/DIAG INJ SC/IM CPT-4: 95511 09/11/2014 METHYLPREDNISOLONE 40 MG INJ CPT-4: J1030 09/11/2014 TRIAMCINOLONE ACET INJ NOS CPT-4: J3301 09/11/2014 CEFTRIAXONE SODIUM INJECTION CPT-4: J0696 09/11/2014 THER/PROPH/DIAG INJ SC/IM CPT-4: 29460 09/11/2014 ROUTINE VENIPUNCTURE CPT-4: 65509 08/27/2014 COMPREHEN METABOLIC PANEL CPT-4: 72358 08/27/2014 COMPLETE CBC W/AUTO DIFF WBC CPT-4: 30893 08/27/2014 LIPID PANEL CPT-4: 15399 08/27/2014 ROUTINE VENIPUNCTURE CPT-4: 84195 07/21/2014 ASSAY OF AMYLASE CPT-4: 73473 07/21/2014 ASSAY OF LIPASE CPT-4: 15571 07/21/2014 THER/PROPH/DIAG INJ SC/IM CPT-4: 58937 07/15/2014 TRIAMCINOLONE ACET INJ NOS CPT-4: J3301 07/15/2014 ROUTINE VENIPUNCTURE CPT-4: 98878 05/14/2014 ASSAY OF FREE THYROXINE CPT-4: 81998 05/14/2014 ASSAY THYROID STIM HORMONE CPT-4: 56827 05/14/2014 COMPREHEN METABOLIC PANEL CPT-4: 01750 05/14/2014 COMPLETE CBC W/AUTO DIFF WBC CPT-4: 75660 05/14/2014 LIPID PANEL CPT-4: 01025 05/14/2014 CEFTRIAXONE SODIUM INJECTION CPT-4: J0696 04/21/2014 THER/PROPH/DIAG INJ SC/IM CPT-4: 95997 04/21/2014 THER/PROPH/DIAG INJ SC/IM CPT-4: 22576 04/21/2014 TRIAMCINOLONE ACET INJ NOS CPT-4: J3301 04/21/2014 THER/PROPH/DIAG INJ SC/IM CPT-4: 70595 03/04/2014 METHYLPREDNISOLONE 40 MG INJ CPT-4: J1030 03/04/2014 TRIAMCINOLONE ACET INJ NOS CPT-4: J3301 03/04/2014 CEFTRIAXONE SODIUM INJECTION CPT-4: J0696 03/04/2014 THER/PROPH/DIAG INJ SC/IM CPT-4: 12613 03/04/2014 TDAP VACCINE 7 YRS/> IM CPT-4: 04372 02/27/2014 IMMUNIZATION ADMIN CPT-4: 49323 02/27/2014 DESTRUCT PREMALG LESION (Cryosurgery) CPT-4: 70471 DESTRUCT PREMALG LES 2-14 CPT-4: 00440 01/13/2014 THER/PROPH/DIAG INJ SC/IM CPT-4: 18778 10/21/2013 METHYLPREDNISOLONE 40 MG INJ CPT-4: J1030 10/21/2013 TRIAMCINOLONE ACET INJ NOS CPT-4: J3301 10/21/2013 CEFTRIAXONE SODIUM INJECTION CPT-4: J0696 08/27/2013 THER/PROPH/DIAG INJ SC/IM CPT-4: 58927 08/27/2013 THER/PROPH/DIAG INJ SC/IM CPT-4: 45166 08/27/2013 METHYLPREDNISOLONE 40 MG INJ CPT-4: J1030 08/27/2013 TRIAMCINOLONE ACET INJ NOS CPT-4: J3301 08/27/2013 THER/PROPH/DIAG INJ SC/IM CPT-4: 25301 06/23/2013 METHYLPREDNISOLONE 40 MG INJ CPT-4: J1030 06/23/2013 TRIAMCINOLONE ACET INJ NOS CPT-4: J3301 06/23/2013 THER/PROPH/DIAG INJ SC/IM CPT-4: 25425 05/26/2013 METHYLPREDNISOLONE 40 MG INJ CPT-4: J1030 05/26/2013 TRIAMCINOLONE ACET INJ NOS CPT-4: J3301 05/26/2013 ROUTINE VENIPUNCTURE CPT-4: 38483 03/05/2013 ASSAY OF FREE THYROXINE CPT-4: 44237 03/05/2013 ASSAY THYROID STIM HORMONE CPT-4: 97916 03/05/2013 COMPREHEN METABOLIC PANEL CPT-4: 93780 03/05/2013 COMPLETE CBC W/AUTO DIFF WBC CPT-4: 73301 03/05/2013 A1C GLYCOSYLATED HEMOGLOBIN TEST CPT-4: 70278 013 DRAIN/INJECT JOINT/BURSA CPT-4: 15129 12/04/2012 METHYLPREDNISOLONE 40 MG INJ CPT-4: J1030 12/04/2012 TRIAMCINOLONE ACET INJ NOS CPT-4: J3301 12/04/2012 CEFTRIAXONE SODIUM INJECTION CPT-4: J0696 11/21/2012 THER/PROPH/DIAG INJ SC/IM CPT-4: 85618 11/21/2012 THER/PROPH/DIAG INJ SC/IM CPT-4: 58513 10/14/2012 METHYLPREDNISOLONE 40 MG INJ CPT-4: J1030 10/14/2012 TRIAMCINOLONE ACET INJ NOS CPT-4: J3301 10/14/2012 URINALYSIS NONAUTO W/O SCOPE CPT-4: 13098 09/27/2012 ROUTINE VENIPUNCTURE CPT-4: 57036 09/25/2012 ASSAY OF FREE THYROXINE CPT-4: 92376 09/25/2012 ASSAY THYROID STIM HORMONE CPT-4: 51443 09/25/2012 COMPREHEN METABOLIC PANEL CPT-4: 96385 09/25/2012 COMPLETE CBC W/AUTO DIFF WBC CPT-4: 03143 09/25/2012 C-REACTIVE PROTEIN CPT-4: 02986 09/25/2012 THER/PROPH/DIAG INJ SC/IM CPT-4: 56055 08/29/2012 METHYLPREDNISOLONE 40 MG INJ CPT-4: J1030 08/29/2012 TRIAMCINOLONE ACET INJ NOS CPT-4: J3301 08/29/2012 DESTRUCT PREMALG LESION (Cryosurgery) CPT-4: 17415 THER/PROPH/DIAG INJ SC/IM CPT-4: 36063 05/06/2012 METHYLPREDNISOLONE 40 MG INJ CPT-4: J1030 05/06/2012 TRIAMCINOLONE ACET INJ NOS CPT-4: J3301 05/06/2012 VITAMIN B 12 FOLIC ACID CPT-4: 21008|23901 05/06/2012 RBC SED RATE AUTOMATED CPT-4: 45104 05/06/2012 ROUTINE VENIPUNCTURE CPT-4: 23500 05/06/2012 ASSAY OF FREE THYROXINE CPT-4: 97006 05/06/2012 ASSAY THYROID STIM HORMONE CPT-4: 19586 05/06/2012 COMPREHEN METABOLIC PANEL CPT-4: 22486 05/06/2012 COMPLETE CBC W/AUTO DIFF WBC CPT-4: 77744 05/06/2012 ASSAY OF BLOOD/URIC ACID CPT-4: 75840 05/06/2012 THER/PROPH/DIAG INJ SC/IM CPT-4: 18720 03/19/2012 KETOROLAC TROMETHAMINE INJ CPT-4: J1885 03/19/2012 KETOROLAC TROMETHAMINE INJ CPT-4: J1885 01/30/2012 THER/PROPH/DIAG INJ SC/IM CPT-4: 34056 01/30/2012 PROMETHAZINE HCL INJECTION CPT-4: J2550 01/30/2012 THER/PROPH/DIAG INJ SC/IM CPT-4: 51169 01/24/2012 METHYLPREDNISOLONE 40 MG INJ CPT-4: J1030 01/24/2012 TRIAMCINOLONE ACET INJ NOS CPT-4: J3301 01/24/2012 THER/PROPH/DIAG INJ SC/IM CPT-4: 90868 09/13/2011 KETOROLAC TROMETHAMINE INJ CPT-4: J1885 09/13/2011 THER/PROPH/DIAG INJ SC/IM CPT-4: 64387 09/13/2011 PROMETHAZINE HCL INJECTION CPT-4: J2550 09/13/2011 CEFTRIAXONE SODIUM INJECTION CPT-4: J0696 07/20/2011 THER/PROPH/DIAG INJ SC/IM CPT-4: 04221 07/20/2011 THER/PROPH/DIAG INJ SC/IM CPT-4: 88089 07/20/2011 METHYLPREDNISOLONE INJECTION CPT-4: J2930 07/20/2011 URINALYSIS NONAUTO W/O SCOPE CPT-4: 22740 05/09/2011 CEFTRIAXONE SODIUM INJECTION CPT-4: J0696 05/09/2011 THER/PROPH/DIAG INJ SC/IM CPT-4: 10527 05/09/2011 THER/PROPH/DIAG INJ SC/IM CPT-4: 53738 05/09/2011 PROMETHAZINE HCL INJECTION CPT-4: J2550 05/09/2011 HYDRATION IV INFUSION INIT CPT-4: 04677 05/09/2011 DESTRUCT PREMALG LESION (Cryosurgery) CPT-4: 93337 DESTRUCT PREMALG LES 2-14 CPT-4: 58113 07/19/2010 REMOVAL OF SKIN TAGS <W/15 CPT-4: 25898 05/30/2010 THER/PROPH/DIAG INJ SC/IM CPT-4: 42041 04/05/2010 CEFTRIAXONE SODIUM INJECTION CPT-4: J0696 04/05/2010 TRIAMCINOLONE ACET INJ NOS CPT-4: J3301 04/05/2010 METHYLPREDNISOLONE 40 MG INJ CPT-4: J1030 04/05/2010 THER/PROPH/DIAG INJ SC/IM CPT-4: 49813 04/05/2010 TRIAMCINOLONE ACET INJ NOS CPT-4: J3301 03/09/2010 METHYLPREDNISOLONE 40 MG INJ CPT-4: J1030 03/09/2010 THER/PROPH/DIAG INJ SC/IM CPT-4: 35542 03/09/2010 THER/PROPH/DIAG INJ SC/IM CPT-4: 57630 03/09/2010 CEFTRIAXONE SODIUM INJECTION CPT-4: J0696 03/09/2010 Vital Signs Date Vital 10/07/2019 Blood Pressure 1: 134/82 Code: 8480-6 Heart Rate 1: 105 bpm Respiratory Rate: 17 bpm SpO2: 96% Temperature: 36.8 (C) / 98.2 (F) We ight: 198 lbs 09/30/2019 Blood Pressure 1: 132/80 Code: 8480-6 BMI: 35.8 Code: 32116-3 Heart Rate 1: 88 bpm Height: 5'4" Respiratory Rate: 20 bpm SpO2: 95% Tempera ture: 36.9 (C) / 98.5 (F) Weight: 210 lbs 05/28/2019 Blood Pressure 1: 126/82 Code: 8480-6 BMI: 35.0 Code: 02881-6 Heart Rate 1: 88 bpm Height: 5'4" [...] 1: 128/90 Code: 8480-6 BMI: 37.2 Code: 01347-6 Heart Rate 1: 84 bpm Height: 5'4" Respiratory Rate: 20 bpm SpO2: 95% Tempera ture: 36.6 (C) / 97.8 (F) Weight: 217 lbs 08/27/2018 Blood Pressure 1: 128/88 Code: 8480-6 BMI: 38.3 Code: 73633-3 Heart Rate 1: 84 bpm Height: 5'4" [...] 1: 119/72 Code: 8480-6 BMI: 37.4 Code: 44502-5 Heart Rate 1: 82 bpm Height: 5'4" Respiratory Rate: 12 bpm SpO2: 94% Tempera ture: 35.2 (C) / 95.4 (F) Weight: 218 lbs 12/18/2017 Blood Pressure 1: 128/86 Code: 8480-6 BMI: 37.8 Code: 28242-6 Heart Rate 1: 84 bpm Height: 5'4" [...] 1: 128/82 Code: 8480-6 BMI: 35.5 Code: 69049-9 Heart Rate 1: 84 bpm Height: 5'4" [...] 1: 128/82 Code: 8480-6 BMI: 30.2 Code: 88564-5 Heart Rate 1: 80 bpm Height: 5'4" [...] 1: 128/86 Code: 8480-6 BMI: 32.8 Code: 90373-1 Heart Rate 1: 66 bpm Height: 5'4" Respiratory Rate: 18 bpm Temperature: 36 .3 (C) / 97.3 (F) Weight: 191 lbs 06/23/2013 Blood Pressure 1: 132/94 Code: 8480-6 BMI: 34.0 Code: 37947-7 Heart Rate 1: 84 bpm Height: 5'4" Respiratory Rate: 20 bpm Temperature: 36 .8 (C) / 98.2 (F) Weight: 198 lbs 05/26/2013 Blood Pressure 1: 114/80 Code: 8480-6 BMI: 35.0 Code: 32210-6 Heart Rate 1: 80 bpm Height: 5'4" Respiratory Rate: 20 bpm Temperature: 36 .4 (C) / 97.6 (F) Weight: 204 lbs 04/16/2013 Blood Pressure 1: 114/82 Code: 8480-6 BMI: 36.7 Code: 99069-3 Heart Rate 1: 84 bpm Height: 5'4" Respiratory Rate: 20 bpm Temperature: 36 .7 (C) / 98.0 (F) Weight: 214 lbs 03/05/2013 Blood Pressure 1: 136/90 Code: 8480-6 BMI: 37.1 Code: 60733-5 Heart Rate 1: 84 bpm Height: 5'4" [...] 1: 168/114 Code: 8480-6 BMI: 36.2 Code: 90233-3 Heart Rate 1: 104 bpm Height: 5'4" Respiratory Rate: 20 bpm Temperature: 36 .8 (C) / 98.2 (F) Weight: 211 lbs 11/22/2012 Blood Pressure 1: 128/90 Code: 8480-6 Heart Rate 1: 88 bpm Respiratory Rate: 20 bpm SpO2: 96% Temperature: 36.8 (C) / 98.2 (F) 11/21/2012 Blood Pressure 1: 146/100 Code: 8480-6 BMI: 35.7 Code: 21573-8 Heart Rate 1: 96 bpm Height: 5'4" [...] 1: 138/100 Code: 8480-6 BMI: 35.7 Code: 44903-3 Heart Rate 1: 96 bpm Height: 5'4" Respiratory Rate: 20 bpm Temperature: 36 .8 (C) / 98.2 (F) Weight: 208 lbs 05/06/2012 Blood Pressure 1: 154/102 Code: 8480-6 BMI: 34.7 Code: 87103-5 Heart Rate 1: 116 bpm Height: 5'4" Respiratory Rate: 20 bpm Temperature: 36 .8 (C) / 98.2 (F) Weight: 202 lbs 04/03/2012 Blood Pressure 1: 134/94 Code: 8480-6 BMI: 34.8 Code: 30429-5 Heart Rate 1: 108 bpm Height: 5'4" Respiratory Rate: 20 bpm Temperature: 36 .8 (C) / 98.2 (F) Weight: 203 lbs 03/19/2012 Blood Pressure 1: 148/106 Code: 8480-6 BMI: 35.0 Code: 88817-8 Heart Rate 1: 100 bpm Height: 5'4" Respiratory Rate: 20 bpm Temperature: 36 .6 (C) / 97.9 (F) Weight: 204 lbs 02/22/2012 Blood Pressure 1: 146/94 Code: 8480-6 He art Rate 1: 88 bpm 02/21/2012 Blood Pressure 1: 172/120 Code: 8480-6 B lood Pressure 2: 152/106 Code: 8480-6 Heart Rate 1: 116 bpm 02/20/2012 Blood Pressure 1: 160/100 Code: 8480-6 BMI: 32.0 Code: 24028-1 Heart Rate 1: 84 bpm Height: 5'7" Temperature: 36.5 (C) / 97.7 (F) Weight: 204 lbs 01/30/2012 Blood Pressure 1: 152/110 Code: 8480-6 BMI: 32.0 Code: 15380-2 Heart Rate 1: 116 bpm Height: 5'7" Respiratory Rate: 20 bpm Temperature: 37 .0 (C) / 98.6 (F) Weight: 204 lbs 01/24/2012 Blood Pressure 1: 146/100 Code: 8480-6 BMI: 32.0 Code: 46159-6 Heart Rate 1: 100 bpm Height: 5'7" Respiratory Rate: 20 bpm Temperature: 36 .7 (C) / 98.0 (F) Weight: 204 lbs 01/10/2012 Blood Pressure 1: 156/94 Code: 8480-6 BMI: 32.6 Code: 45162-7 Heart Rate 1: 72 bpm Height: 5'7" Respiratory Rate: 20 bpm Temperature: 36 .8 (C) / 98.2 (F) Weight: 208 lbs 12/11/2011 Blood Pressure 1: 146/100 Code: 8480-6 Heart Rat e 1: 116 bpm Height: 5'7" Respiratory Rate: 20 bpm Temperature: 36.9 (C) / 98.4 (F) We ight: 11/09/2011 Blood Pressure 1: 148/96 Code: 8480-6 BMI: 32.1 Code: 09720-6 Heart Rate 1: 116 bpm Height: 5'7" Respiratory Rate: 20 bpm Temperature: 36 .7 (C) / 98.0 (F) Weight: 205 lbs 09/13/2011 Blood Pressure 1: 126/88 Code: 8480-6 Heart Rate 1: 88 bpm Height: 5'7" Respiratory Rate: 20 bpm Temperature: 36.9 (C) / 98.4 (F) We ight: 08/31/2011 Blood Pressure 1: 118/82 Code: 8480-6 BMI: 32.0 Code: 21451-5 Heart Rate 1: 80 bpm Height: 5'7" Temperature: 36.4 (C) / 97.6 (F) Weight: 204 lbs 07/06/2011 Blood Pressure 1: 128/86 Code: 8480-6 BMI: 30.9 Code: 91374-4 Heart Rate 1: 92 bpm Height: 5'7" Respiratory Rate: 20 bpm Temperature: 36 .9 (C) / 98.4 (F) Weight: 197 lbs 06/06/2011 Blood Pressure 1: 112/74 Code: 8480-6 BMI: 31.0 Code: 50301-5 Heart Rate 1: 72 bpm Height: 5'7" [...] 1: 128/92 Code: 8480-6 BMI: 33.6 Code: 84077-8 Heart Rate 1: 104 bpm Height: 5'4" [...] Check-up Encounters Encounter Performer Location Codes Date ([id number]) OFFICE/OUTPATIENT VISIT EST Diagnosis: Ingrowing nail[ICD10: L60.0] Diagnosis: Type 2 diabetes mellitus with hyperglycemia[ICD10: E11.65] Kathleen Zuniga MARÍA ELENA Hicks [employer] CPT-4: 34316 10/07/2019 ([id number]) OFFICE/OUTPATIENT VISIT EST Diagnosis: DM w/o complication type II, uncontrolled[ICD10: E11.65] Diagnosis: Hypertriglyceridemia[ICD10: E78.1] Diagnosis: Essential hypertension[ICD10: I10] María Elena JEAN [employer] [facility] CPT-4: 47103 09/30/2019 ([id number]) NURSE/OUTPATIENT VISIT EST Diagnosis: Essential (primary) hypertension[ICD10: I10] Diagnosis: Cervicalgia[ICD10: M54.2] Diagnosis: Hyperglycemia, unspecified[ICD10: R73.9] Diagnosis: Mixed hyperlipidemia[ICD10: E78.2] María Elena JEAN [employer] CPT-4: 45115 09/29/2019 ([id number]) OFFICE/OUTPATIENT VISIT EST Diagnosis: Essential (primary) hypertension[ICD10: I10] Diagnosis: Fall from bed, sequela[ICD10: W06.XXXS] María Elena Hicks [facility] CPT-4: 87746 05/28/2019 ([id number]) NURSE/OUTPATIENT VISIT EST Diagnosis: Essential (primary) hypertension[ICD10: I10] María Elena Hicks [facility] CPT-4: 27052 05/19/2019 ([id number]) OFFICE/OUTPATIENT VISIT EST Diagnosis: Essential (primary) hypertension[ICD10: I10] Diagnosis: Type 2 diabetes mellitus with hyperglycemia[ICD10: E11.65] Diagnosis: Intervertebral disc disorders with radiculopathy, 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] Diagnosis: Hormone replacement therapy[ICD10: Z79.890] María Elena Hicks [employer] CPT-4: 26547 01/22/2019 ([id number]) OFFICE/OUTPATIENT VISIT EST Diagnosis: Essential (primary) hypertension[ICD10: I10] Diagnosis: Type 2 diabetes mellitus with hyperglycemia[ICD10: E11.65] María Elena [facility] CPT-4: 87359 09/30/2018 ([id number]) OFFICE/OUTPATIENT VISIT EST Diagnosis: Pain in left elbow[ICD10: M25.522] Diagnosis: Acute stress reaction[ICD10: F43.0] Diagnosis: Primary insomnia[ICD10: F51.01] Diagnosis: Abnormal weight gain[ICD10: R63.5] María Elena Td [facility] CPT-4: 62657 08/27/2018 ([id number]) OFFICE/OUTPATIENT VISIT EST Diagnosis: Acute recurrent sinusitis, unspecified[ICD10: J01.91] Diagnosis: Follicular disorder, unspecified[ICD10: L73.9] Diagnosis: Tinea corporis[ICD10: B35.4] María Elena [facility] CPT-4: 37676 08/09/2018 ([id number]) OFFICE/OUTPATIENT VISIT EST Diagnosis: Tinea corporis[ICD10: B35.4] Diagnosis: Anxiety disorder, unspecified[ICD10: F41.9] Diagnosis: Menopausal and female climacteric states[ICD10: N95.1] MaríaE lena [facility] CPT-4: 90792 07/22/2018 ([id number]) NURSE/OUTPATIENT VISIT EST Diagnosis: Cellulitis of right toe[ICD10: L03.031] María Elenagael Appiah [facility]LAH [facility] CPT-4: 60396 06/19/2018 ([id number]) OFFICE/OUTPATIENT VISIT EST Diagnosis: Cellulitis of right toe[ICD10: L03.031] Kathleen Tenadi [facility] CPT-4: 06338 06/17/2018 ([id number]) OFFICE/OUTPATIENT VISIT EST Diagnosis: Migraine without aura, intractable, without status migrainosus[ICD10: G43.019] Diagnosis: Zoster without complications[ICD10: B02.9] Kathleen [facility] CPT-4: 55929 05/16/2018 ([id number]) OFFICE/OUTPATIENT VISIT EST Diagnosis: Cellulitis of right lower limb[ICD10: L03.115] Kathleen [facility] CPT-4: 11502 03/20/2018 ([id number]) OFFICE/OUTPATIENT VISIT EST Diagnosis: Cellulitis of right lower limb[ICD10: L03.115] Kathleen [facility] CPT-4: 95013 03/18/2018 ([id number]) OFFICE/OUTPATIENT VISIT EST Diagnosis: Cellulitis of right lower limb[ICD10: L03.115] Kathleen [facility] CPT-4: 70840 03/15/2018 ([id number]) OFFICE/OUTPATIENT VISIT EST Diagnosis: Acute sinusitis, unspecified[ICD10: J01.90] Kathleen [facility] CPT-4: 64177 02/11/2018 ([id number]) NURSE/OUTPATIENT VISIT EST Diagnosis: Otitis media, unspecified, right ear[ICD10: H66.91] María Elena [facility] CPT-4: 51665 02/01/2018 ([id number]) OFFICE/OUTPATIENT VISIT EST Diagnosis: Acute suppurative otitis media without spontaneous rupture of ear drum, left ear[ICD10: H66.002] Diagnosis: Abnormal weight gain[ICD10: R63.5] Diagnosis: Intervertebral disc disorders with radiculopathy, 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] Kathleen [facility] DO [facility] CPT-4: 99 214 01/30/2018 ([id number]) PREV VISIT EST AGE 40-64 Diagnosis: Encounter for general adult medical examination without abnormal findings[ICD10: Z00.00] Diagnosis: Essential (primary) hypertension[ICD10: I10] Diagnosis: Mixed hyperlipidemia[ICD10: E78.2] Diagnosis: Type 2 diabetes mellitus with hyperglycemia[ICD10: E11.65] Diagnosis: 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] María Elena [facility] CPT-4: 72188 12/18/2017 ([id number]) OFFICE/OUTPATIENT VISIT EST Diagnosis: Cellulitis of right toe[ICD10: L03.031] Diagnosis: Mixed hyperlipidemia[ICD10: E78.2] Diagnosis: Essential (primary) hypertension[ICD10: I10] Diagnosis: Hyperglycemia, unspecified[ICD10: R73.9] Diagnosis: Nontoxic goiter, 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] María Elena [facility] CPT-4: 61444 12/10/2017 ([id number]) OFFICE/OUTPATIENT VISIT EST Diagnosis: Cellulitis of right toe[ICD10: L03.031] Diagnosis: Acute sinusitis, unspecified[ICD10: J01.90] Kathleen [facility] CPT-4: 15924 12/07/2017 OFFICE/OUTPATIENT VISIT EST Diagnosis: Acute maxillary sinusitis, unspecified[ICD10: J01.00] Kathleen [facility] CPT-4: 32964 10/08/2017 ([id number]) OFFICE/OUTPATIENT VISIT EST Diagnosis: Cellulitis of left toe[ICD10: L03.032] María Elena [facility] CPT-4: 54934 09/21/2017 ([id number]) OFFICE/OUTPATIENT VISIT EST Diagnosis: Insomnia, unspecified[ICD10: G47.00] Diagnosis: Major depressive disorder, single episode, unspecified[ICD10: F32.9] Diagnosis: Anxiety disorder, unspecified[ICD10: F41.9] Diagnosis: Cellulitis of left toe[ICD10: L03.032] Diagnosis: Snoring[ICD10: R06.83] Kathleen APPIAH DO [facility] CPT-4: 71870 09/20/2017 ([id number]) OFFICE/OUTPATIENT VISIT EST Diagnosis: Cellulitis of left toe[ICD10: L03.032] María Elena [facility] CPT-4: 23106 07/19/2017 OFFICE/OUTPATIENT VISIT EST Diagnosis: Chronic sinusitis, unspecified[ICD10: J32.9] Diagnosis: Generalized hyperhidrosis[ICD10: R61] Kathleen APPIAH [facility] CPT-4: 22702 06/27/2017 ([id number]) OFFICE/OUTPATIENT VISIT EST Diagnosis: Intervertebral disc disorders with radiculopathy, 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] Diagnosis: Primary insomnia[ICD10: F51.01] Diagnosis: Other fatigue[ICD10: R53.83] María Elena [facility] CPT-4: 84865 04/10/2017 ([id number]) OFFICE/OUTPATIENT VISIT EST Diagnosis: Primary insomnia[ICD10: F51.01] Diagnosis: Localized edema[ICD10: R60.0] Diagnosis: 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] María Elena [facility] CPT-4: 18957 12/13/2016 ([id number]) OFFICE/OUTPATIENT VISIT EST Diagnosis: Primary insomnia[ICD10: F51.01] Diagnosis: Cyanosis[ICD10: R23.0] María Elena Bazzi [facility] CPT-4: 48577 11/01/2016 ([id number]) PREV VISIT EST AGE 40-64 Diagnosis: Encounter for gynecological examination (general) (routine) without abnormal findings[ICD10: Z01.419] Diagnosis: Encounter for routine child health examination without abnormal findings[ICD10: Z00.129] María Elena APPIAH [facility] CPT-4: 72752 10/17/2016 ([id number]) OFFICE/OUTPATIENT VISIT EST Diagnosis: Other seasonal allergic rhinitis[ICD10: J30.2] María Elena [facility] CPT-4: 30493 10/10/2016 ([id number]) OFFICE/OUTPATIENT VISIT EST Diagnosis: Pain in left arm[ICD10: M79.602] Diagnosis: Contact with and (suspected) exposure to potentially hazardous body fluids[ICD10: Z77.21] Diagnosis: 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, 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] Diagnosis: Unspecified open wound, right foot, sequela[ICD10: S91.301S] María Elena [facility] CPT-4: 52485 09/19/2016 ([id number]) OFFICE/OUTPATIENT VISIT EST Diagnosis: Chronic sinusitis, unspecified[ICD10: J32.9] Diagnosis: Allergic rhinitis due to pollen[ICD10: J30.1] María Elena [facility] CPT-4: 11002 08/24/2016 ([id number]) OFFICE/OUTPATIENT VISIT EST Diagnosis: Acute bronchitis, unspecified[ICD10: J20.9] María Elena [facility] CPT-4: 40302 08/16/2016 ([id number]) OFFICE/OUTPATIENT VISIT EST Diagnosis: Otitis media, unspecified, right ear[ICD10: H66.91] Diagnosis: Acute bronchitis, unspecified[ICD10: J20.9] María Elena [facility] CPT-4: 50255 08/10/2016 ([id number]) OFFICE/OUTPATIENT VISIT EST Diagnosis: Acute recurrent sinusitis, unspecified[ICD10: J01.91] Diagnosis: Allergic rhinitis due to pollen[ICD10: J30.1] María Elena APPIA[facility] CPT-4: 47680 08/02/2016 ([id number]) OFFICE/OUTPATIENT VISIT EST Diagnosis: Pain in unspecified joint[ICD10: M25.50] María Elena [facility]IA[facility] DO [facility] CPT-4: 32731 07/27/2016 OFFICE/OUTPATIENT VISIT EST Diagnosis: 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] Diagnosis: Acute recurrent sinusitis, unspecified[ICD10: J01.91] Diagnosis: Other fatigue[ICD10: R53.83] Diagnosis: Primary insomnia[ICD10: F51.01] Diagnosis: Pain in unspecified joint[ICD10: M25.50] María Elena APPIAH [facility] CPT-4: 00005 07/20/2016 ([id number]) OFFICE/OUTPATIENT VISIT EST Diagnosis: Blister (nonthermal), left great toe, initial encounter[ICD10: S90.422A] Loan [facility] CPT-4: 63492 ([id number]) OFFICE/OUTPATIENT VISIT EST Diagnosis: Acute recurrent sinusitis, unspecified[ICD10: J01.91] María Elena [facility] CPT-4: 64980 05/25/2016 ([id number]) OFFICE/OUTPATIENT VISIT EST Diagnosis: Acute sinusitis, unspecified[ICD10: J01.90] María Elena [facility] CPT-4: 94394 04/26/2016 ([id number]) OFFICE/OUTPATIENT VISIT EST Diagnosis: Flushing[ICD10: R23.2] Diagnosis: Primary insomnia[ICD10: F51.01] María Elena [facility] CPT-4: 36643 03/02/2016 ([id number]) OFFICE/OUTPATIENT VISIT EST Diagnosis: Other seasonal allergic rhinitis[ICD10: J30.2] Loan [facility] CPT-4: 21714 02/09/2016 ([id number]) OFFICE/OUTPATIENT VISIT EST Diagnosis: Primary insomnia[ICD10: F51.01] Diagnosis: Urinary tract infection, site not specified[ICD10: N39.0] María Elena [facility] CPT-4: 73179 01/24/2016 ([id number]) OFFICE/OUTPATIENT VISIT EST Diagnosis: Other specified disorders of Eustachian tube, bilateral[ICD10: H69.83] Diagnosis: Allergic rhinitis, unspecified[ICD10: J30.9] Loan [facility] CPT-4: 39968 12/23/2015 ([id number]) OFFICE/OUTPATIENT VISIT EST Diagnosis: Acute recurrent sinusitis, unspecified[ICD10: J01.91] Diagnosis: 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] Diagnosis: Allergic rhinitis, unspecified[ICD10: J30.9] María Elena [facility] CPT-4: 18941 12/08/2015 ([id number]) OFFICE/OUTPATIENT VISIT EST Diagnosis: Allergic rhinitis, unspecified[ICD10: J30.9] Diagnosis: Pain in unspecified joint[ICD10: M25.50] María Elena [facility] CPT-4: 16127 10/07/2015 ([id number]) OFFICE/OUTPATIENT VISIT EST Diagnosis: Essential (primary) hypertension[ICD10: I10] María Elena [facility] CPT-4: 85672 10/06/2015 OFFICE/OUTPATIENT VISIT EST Diagnosis: Localized enlarged lymph nodes[ICD10: R59.0] Diagnosis: Local infection of the skin and subcutaneous tissue, unspecified[ICD10: L08.9] June VelozAlbertadaniella [facility] CPT- 4: 82923 09/14/2015 ([id number]) OFFICE/OUTPATIENT VISIT EST Diagnosis: Essential (primary) hypertension[ICD10: I10] Diagnosis: Actinic keratosis[ICD10: L57.0] María Elena [facility] CPT-4: 49451 09/07/2015 ([id number]) OFFICE/OUTPATIENT VISIT EST Diagnosis: Essential (primary) hypertension[ICD10: I10] Diagnosis: Acute stress reaction[ICD10: F43.0] María Elena [facility] CPT-4: 73446 08/18/2015 ([id number]) OFFICE/OUTPATIENT VISIT EST Diagnosis: Essential (primary) hypertension[ICD10: I10] María Elena [facility] CPT-4: 14308 07/07/2015 ([id number]) OFFICE/OUTPATIENT VISIT EST Diagnosis: Essential (primary) hypertension[ICD10: I10] María Elena [facility] CPT-4: 45266 06/24/2015 ([id number]) OFFICE/OUTPATIENT VISIT EST Diagnosis: Essential (primary) hypertension[ICD10: I10] María Elena [facility] CPT-4: 48828 06/21/2015 ([id number]) OFFICE/OUTPATIENT VISIT EST Diagnosis: Essential (primary) hypertension[ICD10: I10] Diagnosis: Mixed hyperlipidemia[ICD10: E78.2] Diagnosis: Acute stress reaction[ICD10: F43.0] Diagnosis: Primary insomnia[ICD10: F51.01] María Elena [facility] CPT-4: 91599 06/16/2015 ([id number]) OFFICE/OUTPATIENT VISIT EST Diagnosis: INSOMNIA NOS[ICD9: 780.52] Diagnosis: HYPERTENSION[ICD9: 401.9] Diagnosis: Stress reaction[ICD9: 308.9] María Elena APPIAH [facility] CPT-4: 42877 06/02/2015 ([id number]) OFFICE/OUTPATIENT VISIT EST Diagnosis: HYPERTENSION[ICD9: 401.9] Diagnosis: Stress reaction[ICD9: 308.9] María Elena APPIA[facility] CPT-4: 03502 05/20/2015 ([id number]) OFFICE/OUTPATIENT VISIT EST Diagnosis: Skin lesion[ICD9: 709.9] 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] María Elena [facility]LLISLINE [facility]: 76284 05/10/2015 ([id number]) OFFICE/OUTPATIENT VISIT EST Diagnosis: SINUSITIS, ACUTE[ICD9: 461.9] Diagnosis: ALLERGIC RHINITIS[ICD9: 477.9] Diagnosis: DERMATITIS NOS[ICD9: 692.9] María Elena ELLISLINE LucioJj Marcos ORI [facility] CPT-4: 74172 03/16/2015 OFFICE/OUTPATIENT VISIT EST Diagnosis: Otitis media[ICD9: 382.9] Diagnosis: SINUSITIS, ACUTE[ICD9: 461.9] June Flores MARÍA ELENA [facility]j [facility] CPT-4: 90757 09/11/2014 ([id number]) OFFICE/OUTPATIENT VISIT EST Diagnosis: HYPERLIPIDEMIA NEC/NOS[ICD9: 272.4] María Elena Seamusdawn COLON LucioJj [facility] CPT-4: 66137 08/31/2014 ([id number]) OFFICE/OUTPATIENT VISIT EST Diagnosis: - I - HYPERTENSION[ICD9: 401.9] Diagnosis: HYPERLIPIDEMIA NEC/NOS[ICD9: 272.4] María Elena APPIAH DO [facility] CPT-4: 35436 08/27/2014 ([id number]) OFFICE/OUTPATIENT VISIT EST Diagnosis: ABDOMINAL PAIN[ICD9: 789.00] Diagnosis: DYSPEPSIA[ICD9: 536.8] Diagnosis: Thoracic back pain[ICD9: 724.1] María Elena APPIAH DO [facility] CPT-4: 02509 07/21/2014 ([id number]) OFFICE/OUTPATIENT VISIT EST Diagnosis: ALLERGIC RHINITIS[ICD9: 477.9] María Elena APPIAH DO [facility] CPT-4: 02844 07/15/2014 ([id number]) OFFICE/OUTPATIENT VISIT EST Diagnosis: EDEMA[ICD9: 782.3] Diagnosis: Chronic insomnia[ICD9: 780.52] María Elena APPIAH DO [facility] CPT-4: 06686 05/18/2014 ([id number]) OFFICE/OUTPATIENT VISIT EST Diagnosis: Thyromegaly[ICD9: 240.9] Diagnosis: - I - HYPERTENSION[ICD9: 401.9] Diagnosis: ROUTINE MEDICAL EXAM[ICD9: V70.0] Diagnosis: EDEMA[ICD9: 782.3] María Elena APPIAH DO [facility] CPT-4: 02179 05/14/2014 OFFICE/OUTPATIENT VISIT EST Diagnosis: BRONCHITIS, ACUTE[ICD9: 466.0] Diagnosis: SINUSITIS, ACUTE[ICD9: 461.9] María Elena APPIAH DO [facility] CPT-4: 45221 04/21/2014 OFFICE/OUTPATIENT VISIT EST Diagnosis: SINUSITIS, ACUTE[ICD9: 461.9] June Flores MARÍA ELENA APPIAH DO [facility] CPT-4: 10578 03/04/2014 ([id number]) OFFICE/OUTPATIENT VISIT EST Diagnosis: VACCINE FOR TDAP[ICD10: Z23] María Elena [facility] CPT-4: 08768 02/27/2014 ([id number]) OFFICE/OUTPATIENT VISIT EST Diagnosis: Seborrheic keratoses, inflamed[ICD9: 702.11] Diagnosis: ACTINIC KERATOSIS[ICD9: 702.0] Diagnosis: INSOMNIA NOS[ICD9: 780.52] María Elena PANDYA [facility] CPT-4: 49283 01/13/2014 OFFICE/OUTPATIENT VISIT EST Diagnosis: EUSTACHIAN TUBE DYSFUNCTION[ICD9: 381.81] Diagnosis: ALLERGIC RHINITIS[ICD9: 477.9] Diagnosis: Serous otitis media[ICD9: 381.4] María Elena [facility] CPT-4: 23181 12/24/2013 ([id number]) OFFICE/OUTPATIENT VISIT EST Diagnosis: SINUSITIS, ACUTE[ICD9: 461.9] Diagnosis: ALLERGIC RHINITIS[ICD9: 477.9] Diagnosis: EUSTACHIAN TUBE DYSFUNCTION[ICD9: 381.81] [facility]: 16938 11/12/2013 ([id number]) OFFICE/OUTPATIENT VISIT EST Diagnosis: ALLERGIC RHINITIS[ICD9: 477.9] Diagnosis: SINUSITIS, ACUTE[ICD9: 461.9] María Elena [facility] CPT-4: 17108 10/21/2013 ([id number]) OFFICE/OUTPATIENT VISIT EST Diagnosis: ASYMPTOMATIC VARICOSE VEINS[ICD9: 454.9] Diagnosis: INSOMNIA NOS[ICD9: 780.52] María Elena Valdes [facility] CPT-4: 87119 09/22/2013 OFFICE/OUTPATIENT VISIT EST Diagnosis: SINUSITIS, ACUTE[ICD9: 461.9] June Flores MARÍA ELENA [facility] CPT-4: 63523 08/27/2013 ([id number]) OFFICE/OUTPATIENT VISIT EST Diagnosis: CEPHALGIA[ICD9: 784.0] Diagnosis: CEPHALGIA, TENSION[ICD9: 307.81] 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] María Elena [facility] CPT-4: 52107 08/04/2013 ([id number]) OFFICE/OUTPATIENT VISIT EST Diagnosis: Cervicalgia[ICD9: 723.1] Diagnosis: SPASM OF MUSCLE[ICD9: 728.85] Diagnosis: CEPHALGIA, TENSION[ICD9: 307.81] María Elena APPIAH DO [facility] CPT-4: 12390 07/23/2013 ([id number]) OFFICE/OUTPATIENT VISIT EST Diagnosis: EUSTACHIAN TUBE DYSFUNCTION[ICD9: 381.81] Diagnosis: ALLERGIC RHINITIS[ICD9: 477.9] María Elena APPIAH DO [facility] CPT-4: 37126 06/23/2013 ([id number]) OFFICE/OUTPATIENT VISIT EST Diagnosis: ALLERGIC RHINITIS[ICD9: 477.9] Diagnosis: ACUTE SEROUS OTITIS MEDIA[ICD9: 381.01] Diagnosis: EUSTACHIAN TUBE DYSFUNCTION[ICD9: 381.81] María Elena APPIAH DO [facility] CPT-4: 17661 05/26/2013 ([id number]) OFFICE/OUTPATIENT VISIT EST Diagnosis: HYPERTENSION[ICD9: 401.9] Diagnosis: EDEMA[ICD9: 782.3] Diagnosis: Serous otitis media[ICD9: 381.4] María Elena APPIAH DO [facility] CPT-4: 65848 04/16/2013 ([id number]) OFFICE/OUTPATIENT VISIT EST Diagnosis: SINUSITIS, ACUTE[ICD9: 461.9] Diagnosis: ALLERGIC RHINITIS[ICD9: 477.9] Diagnosis: EDEMA[ICD9: 782.3] Diagnosis: Thyromegaly[ICD9: 240.9] Diagnosis: MALAISE AND FATIGUE[ICD9: 780.79] María Elena APPIAH DO [facility] CPT-4: 53718 03/05/2013 ([id number]) OFFICE/OUTPATIENT VISIT EST Diagnosis: PAIN, LOWER BACK[ICD9: 724.2] Diagnosis: SPASM OF MUSCLE[ICD9: 728.85] María Elena APPIAH DO [facility] CPT-4: 80343 12/23/2012 OFFICE/OUTPATIENT VISIT EST Diagnosis: Low back pain[ICD9: 724.2] Lashawn Babar MARÍA ELENA S. [facility] CPT-4: 97032 12/16/2012 ([id number]) OFFICE/OUTPATIENT VISIT EST Diagnosis: PAIN, LOWER BACK[ICD9: 724.2] Diagnosis: SCIATICA[ICD9: 724.3] Diagnosis: Lumbar herniated disc[ICD9: 722.10] María Elena COLON LucioJj TD [facility] CPT-4: 17359 12/09/2012 ([id number]) OFFICE/OUTPATIENT VISIT EST Diagnosis: PAIN, LOWER BACK[ICD9: 724.2] Diagnosis: SCIATICA[ICD9: 724.3] Diagnosis: LUMBAR DISC DISPLACEMENT[ICD9: 722.10] María Elena MARIN LucioJj TD [facility] CPT-4: 83334 12/04/2012 OFFICE/OUTPATIENT VISIT EST Diagnosis: Pneumonia[ICD9: 486] Mary JUARES LucioJj [facility] CPT-4: 52572 11/22/2012 ([id number]) OFFICE/OUTPATIENT VISIT EST Diagnosis: PNEUMONIA, ORGANISM[ICD9: 486] Diagnosis: Exacerbation of RAD (reactive airway disease)[ICD9: 493.92] María Elena JUARES LucioJj TD [facility] CPT-4: 60238 11/21/2012 OFFICE/OUTPATIENT VISIT EST Diagnosis: HYPERTENSION[ICD9: 401.9] Diagnosis: Cephalgia[ICD9: 784.0] Lashawn Hicks SEAMUSYESIVICTORINO [facility] CPT-4: 74713 10/29/2012 ([id number]) OFFICE/OUTPATIENT VISIT EST Diagnosis: MALAISE AND FATIGUE[ICD9: 780.79] Diagnosis: ARTHRALGIA-MULTIPLE SITES[ICD9: 719.49] María Elena REED LucioJj TD [facility] CPT-4: 78439 10/14/2012 ([id number]) OFFICE/OUTPATIENT VISIT EST Diagnosis: URINARY FREQUENCY[ICD9: 788.41] María Elena JUARES LucioJj TD [facility] CPT-4: 24204 09/27/2012 ([id number]) OFFICE/OUTPATIENT VISIT EST Diagnosis: MALAISE AND FATIGUE[ICD9: 780.79] Diagnosis: ARTHRALGIA-MULTIPLE SITES[ICD9: 719.49] María Elena [facility] CPT-4: 94128 09/25/2012 ([id number]) OFFICE/OUTPATIENT VISIT EST Diagnosis: SINUSITIS, ACUTE[ICD9: 461.9] Diagnosis: EUSTACHIAN TUBE DYSFUNCTION[ICD9: 381.81] María Elena [facility] CPT-4: 00944 08/29/2012 OFFICE/OUTPATIENT VISIT EST Diagnosis: ACTINIC KERATOSIS[ICD9: 702.0] Diagnosis: Inflamed seborrheic keratosis[ICD9: 702.11] Diagnosis: Skin cancer of face[ICD9: 173.31] Diagnosis: HYPERTENSION[ICD9: 401.9] [facility] 93719 08/12/2012 ([id number]) OFFICE/OUTPATIENT VISIT EST Diagnosis: ARTHRALGIA-MULTIPLE SITES[ICD9: 719.49] Diagnosis: GOUT[ICD9: 274.9] Diagnosis: HYPERTENSION[ICD9: 401.9] Diagnosis: Tachycardia[ICD9: 785.0] María Elena [facility] CPT-4: 77437 05/06/2012 ([id number]) OFFICE/OUTPATIENT VISIT EST Diagnosis: INSOMNIA NOS[ICD9: 780.52] [facility] C[facility]: 99614 04/03/2012 ([id number]) OFFICE/OUTPATIENT VISIT EST Diagnosis: INSOMNIA NOS[ICD9: 780.52] Diagnosis: HYPERTENSION[ICD9: 401.9] Diagnosis: MIGRAINE NOS/NOT INTRCBL[ICD9: 346.90] [facility] C[facility]: 97273 03/19/2012 ([id number]) OFFICE/OUTPATIENT VISIT EST Diagnosis: CELLULITIS[ICD9: 682.9] Diagnosis: Ankle pain[ICD9: 719.47] Diagnosis: HYPERTENSION[ICD9: 401.9] María Elena [facility] CPT-4: 18379 02/20/2012 ([id number]) OFFICE/OUTPATIENT VISIT EST Diagnosis: MIGRAINE NOS/NOT INTRCBL[ICD9: 346.90] Diagnosis: Vomiting[ICD9: 787.03] María Elena JUARES LucioJj SEAMUSYESIJohn Bazzi [facility] CPT-4: 90764 01/30/2012 ([id number]) OFFICE/OUTPATIENT VISIT EST Diagnosis: EDEMA[ICD9: 782.3] Diagnosis: HYPERTENSION[ICD9: 401.9] Diagnosis: ALLERGIC RHINITIS[ICD9: 477.9] Diagnosis: ARTHRALGIA-MULTIPLE SITES[ICD9: 719.49] María Elena Seamusdawn REED LucioJj TD [facility] CPT-4: 55748 01/24/2012 ([id number]) OFFICE/OUTPATIENT VISIT EST Diagnosis: SPASM OF MUSCLE[ICD9: 728.85] Diagnosis: Thoracic back pain[ICD9: 724.1] Diagnosis: Cervical pain[ICD9: 723.1] María Elena Hicks KRISTYN MUMTAZ [facility] CPT-4: 82022 01/10/2012 OFFICE/OUTPATIENT VISIT EST Diagnosis: PAIN, LOWER BACK[ICD9: 724.2] Diagnosis: LUMBAR DISC DISPLACEMENT[ICD9: 722.10] María Elena MARIN LucioJj TD [facility] CPT-4: 10661 12/11/2011 OFFICE/OUTPATIENT VISIT EST Diagnosis: MIGRAINE NOS/NOT INTRCBL[ICD9: 346.90] Diagnosis: SINUSITIS, ACUTE[ICD9: 461.9] María Elean Hicks TD [facility] CPT-4: 99034 11/09/2011 OFFICE/OUTPATIENT VISIT EST Diagnosis: MIGRAINE NOS/NOT INTRCBL[ICD9: 346.90] Diagnosis: LYMPHADENOPATHY[ICD9: 785.6] María Elena Hicks TD [facility] CPT-4: 73324 09/13/2011 OFFICE/OUTPATIENT VISIT EST Diagnosis: MALAISE AND FATIGUE[ICD9: 780.79] Diagnosis: ARTHRALGIA-MULTIPLE SITES[ICD9: 719.49] María Elena Hicks TD [facility] CPT-4: 13804 08/31/2011 OFFICE/OUTPATIENT VISIT EST Diagnosis: SINUSITIS, ACUTE[ICD9: 461.9] María Elena ORTAER DO [facility] CPT-4: 24382 07/20/2011 OFFICE/OUTPATIENT VISIT EST Diagnosis: HYPERTENSION[ICD9: 401.9] Diagnosis: PAIN, LOWER BACK[ICD9: 724.2] Diagnosis: SPASM OF MUSCLE[ICD9: 728.85] María Elena ORTAER DO [facility] CPT-4: 11302 07/06/2011 OFFICE/OUTPATIENT VISIT EST Diagnosis: MIGRAINE NOS/NOT INTRCBL[ICD9: 346.90] Diagnosis: HYPERTENSION[ICD9: 401.9] María Elena GODOY NDER [facility] CPT-4: 57826 05/22/2011 OFFICE/OUTPATIENT VISIT EST Diagnosis: SINUSITIS, ACUTE[ICD9: 461.9] Diagnosis: MIGRAINE NOS/NOT INTRCBL[ICD9: 346.90] Diagnosis: Dehydration[ICD9: 276.51] Diagnosis: Vomiting[ICD9: 787.03] María Elena ORTAE R DO [facility] CPT-4: 50086 05/09/2011 ([id number]) OFFICE/OUTPATIENT VISIT EST María Elena MARIN SJj GODOYNDER DO [facility] CPT-4: 46154 02/14/2011 ([id number]) OFFICE/OUTPATIENT VISIT EST María Elena ISAAC UJARED S. ORENDER DO [facility] CPT-4: 40706 02/03/2011 ([id number]) OFFICE/OUTPATIENT VISIT EST María Elena ISAAC UJARED S. [facility] DO [facility] CPT-4: 70559 01/31/2011 ([id number]) OFFICE/OUTPATIENT VISIT EST María Elena ISAAC UELINE S. OR[facility] DO [facility] CPT-4: 32212 01/25/2011 ([id number]) OFFICE/OUTPATIENT VISIT EST María Elena ISAAC UJARED S. [facility] CPT-4: 30740 01/18/2011 ([id number]) OFFICE/OUTPATIENT VISIT EST María Elena MARIN S. [facility] DO [facility] CPT-4: 46619 11/29/2010 ([id number]) OFFICE/OUTPATIENT VISIT, EST María Elena [facility] CPT-4: 81536 10/10/2010 ([id number]) OFFICE/OUTPATIENT VISIT, EST María Elena REED S. ORENDER DO [employer] CPT-4: 77191 06/07/2010 ([id number]) OFFICE/OUTPATIENT VISIT, EST María Elena REED S. ORENDER DO [employer] CPT-4: 92910 04/27/2010 ([id number]) OFFICE/OUTPATIENT VISIT, EST María Elena REED S. ORENDER DO [employer] CPT-4: 45487 04/05/2010 ([id number]) OFFICE/OUTPATIENT VISIT, EST María Elena REED S. ORENDER DO [employer] [facility] CPT-4: 52820 03/09/2010 ([id number]) OFFICE/OUTPATIENT VISIT, EST María Elena REED S. ORENDER DO [employer] CPT-4: 27991 03/03/2010 ([id number]) OFFICE/OUTPATIENT VISIT, EST María Elena REED S. ORENDER DO [employer] CPT-4: 57180 01/17/2010 ([id number]) PREV VISIT, EST, AGE 40-64 María Elena COLEMAN SJj GODOYNDER DO [employer] CPT-4: 28717 12/27/2009 Plan of Care Planned Activity Notes [...] : E11.65 10/07/2019 Appointment: Kathleen Zuniga [address] [facility] [place] OFFICE SURGERY 10/07/2019 Visit Diagnosis [...] E11.65 09/30/2019 Appointment: María Elena Appiah WPtel: [address] [place], [place] [phone] [place] CHECK UP 09/30/2019 Patient Education: Premarin- [employer] Coupon [id number] https://www.Beddit.com/samplemd/resources/getResource/61/67362a56-c079-0szp-j7 Completed 09/30/2019 Appointment: María Elena Appiah WPtel: [address] [place], [place] [phone] [place] LAB 09/29/2019 Appointment: María Elena Appiah WPtel: [address] [place] [address] [place] Won't have the new insurance till [...] W06.XXXS 05/28/2019 Appointment: María Elena Appiah WPtel: [address] [place], [place] [phone] FOLLOW UP 05/28/2019 Appointment: María Elena Appiahtel: [address] [place], [place] [address] US BP CHECK 05/19/2019 Visit Diagnosis Plan: [...] : Z79.890 01/22/2019 Appointment: María Elena Appiahtel: [address] [place], [place] [phone] [place] FOLLOW UP 01/22/2019 Patient Education: estradiol- [employer] Coupon [id number] https://www.ESCAPESwithYOU/samplemd/resources/getResource/61/001b070h-7ey0-7f94-4v Completed 01/22/2019 Appointment: María Elena Appiahtel: [address] [place] [address] [place] CANCELED 01/20/2019 Appointment: María Elena Appiah WPtel: [address] [place] [address] [place] LM NO SHOW 01/06/2019 Appointment: María Elena Appiah WPtel: [address] [place] [address] [place] CANCELED 10/17/2018 Appointment: María Elena Appiah WPtel: [address] [place] [address] US BP CHECK 10/09/2018 Visit Diagnosis Plan: [...] I10 09/30/2018 Appointment: María Elena Appiah WPtel: [address] [place] [address] [place] FOLLOW UP 09/30/2018 Visit Diagnosis Plan: [...] F51.01 08/27/2018 Appointment: María Elena Appiah WPtel: [address] [place] [address] [place] ACUTE ILLNESS 08/27/2018 Appointment: María Elena Appiah WPtel: [address] [place], [place] [phone] [place] Patient stated she went out to [...] prn. Tyle... 08/09/2018 Appointment: María Elena Appiahtel: [address] [place] [address] ACUTE ILLNESS 08/09/2018 Appointment: María Elena Appiahtel: [address] [place], [place] [phone] NO SHOW 08/08/2018 Visit Diagnosis Plan: [...] : B35.4 07/22/2018 Appointment: María Elena Appiahtel: [address] [place], [place] [phone] ACUTE ILLNESS 07/22/2018 Appointment: María Elena Appiahtel: [address] [place], [place] [phone] [place] INJECTION 06/19/2018 Patient Education: Patient Medication [...] : L03.031 06/17/2018 Appointment: Kathleen Zuniga 504 [facility] ACUTE ILLNESS 06/17/2018 Patient Education: Patient [...] : B02.9 05/16/2018 Appointment: Kathleen Zuniga [address] [facility] ACUTE ILLNESS 05/16/2018 Patient Education: Patient [...] : L03.115 03/20/2018 Appointment: Kathleen Zuniga [address] [facility] FOLLOW UP 03/20/2018 Patient Education: Patient [...] : L03.115 03/18/2018 Appointment: Kathleen Zuniga [address] [facility] FOLLOW UP 03/18/2018 Patient Education: Patient [...] : L03.115 03/15/2018 Appointment: Kathleen Zuniga [address] [facility] ACUTE ILLNESS 03/15/2018 Patient Education: Patient [...] : J01.90 02/11/2018 Appointment: Kathleen Zuniga [address] [facility] ACUTE ILLNESS 02/11/2018 Patient Education: Patient Medication Summary Completed 02/11/2018 Appointment: María Elena Appiah WPtel: [phone] [facility] [place] INJECTION 02/01/2018 Patient Education: [...] ICD-10 : M51.16 01/30/2018 Appointment: Kathleen Zuniga [address] [place], [place] [id number] ACUTE ILLNESS 01/30/2018 Patient Education: [...] 12/18/2017 Appointment: María Elena Appiah WPtel: [phone] Annual Well Visit 12/18/2017 Patient Education: Patient Medication Summary Completed 12/18/2017 Care Plan: Referral Order SNOMED-CT : [id number] Pending 12/18/2017 Appointment: María Elena Appiah WPtel: [phone] INJECTION 12/10/2017 Patient Education: Patient Medication [...] ICD-10 : L03.031 12/07/2017 Appointment: Kathleen Zuniga [address] [place] [address] ACUTE ILLNESS 12/07/2017 Patient Education: Patient Medication [...] ICD-10 : J01.00 10/08/2017 Appointment: Kathleen Zuniga [address] [place] [address] ACUTE ILLNESS 10/08/2017 Patient Education: Patient Medication Summary Completed 10/08/2017 Appointment: María Elena Appiah WPtel: [phone] [id number] [place] INJECTION 09/21/2017 Patient Education: Patient Medication [...] ICD-10 : R06.83 09/20/2017 Appointment: Kathleen Zuniga [address] [place], [place] [id number] ACUTE ILLNESS 09/20/2017 Patient Education: Patient Medication [...] : L60.0 08/29/2017 Appointment: Kathleen Zuniga [address] [place] [address] OFFICE SURGERY 08/29/2017 Patient Education: Patient Medication Summary Completed 08/29/2017 Visit Diagnosis Plan: Actinic keratosis Discussion: Cr yotherapy as above ICD-9 : 702.0 ICD-10 : L57.0 08/01/2017 Appointment: María Elena Appiah WPtel: [address] [place] [address] OFFICE SURGERY 08/01/2017 Patient Education: Patient Medication Summary Completed 08/01/2017 Appointment: María Elena Appiah WPtel: [address] [place] [address] PATIENT THOUGHT APPOINTMENT WAS TOMORROW 07/26/17 CALLED 15 MINUTES BEFORE APPT TO SAY SHE DIDN'T HAVE ANYONE TO COVER HER BUSINESS AND WOULD NOT MAKE IT NO SHOW 07/25/2017 Visit Diagnosis Plan: Cellulitis of left toe Discussio n: Clindamycin and notify if worsening or persistis ICD-9 : 681.10 ICD-10 : L03.032 07/19/2017 Appointment: María Elena Appiah WPtel: [address] [place], [place] [address] MEDICATION REVIEW 07/19/2017 Patient Education: Patient Medication Summary Completed 07/19/2017 Appointment: María Elena Appiah WPtel: [address] [place] [address] [place] CANCELED 07/04/2017 Visit Diagnosis Plan: Generalized hyperhidrosis Discus ian: CBC, CMP, TSH, free T4 ordered to assess. will review labs. ICD-9 : 780.8 ICD-10 : R61 06/27/2017 Visit Diagnosis Plan: Chronic sinusitis, unspecified D iscussion: Referral sent to dr. albarado in [place] per patient request. patient has been treated multiple times for sinus infections with no recovery. patient was seen by dr sanchez in the past with no interventions. patient has deviated septum which may be affecting her sinuses. 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, including hip Discussion: Shave removal of above lesio n--sent to pathology ICD-9 : 216.7 ICD-10 : D23.72 01/24/2017 Appointment: María Elena Appiah WPtel: [address] [place] [address] 01/23 confirmed ~sl OFFICE SURGERY 01/24/2017 Patient Education: Patient Medication Summary Completed 01/24/2017 Appointment: Loan Sánchez [address] [place] [address] 01/09 rescheduled~sl RESCHEDULED 01/15/2017 Visit Diagnosis Plan: [...] L81.4 12/13/2016 Appointment: María Elena Appiah WPtel: [address] [place], [place] [phone] [place] 12/12 confirmed ~ MEDICATION REVIEW 12/13/2016 Patient Education: Patient Medication Summary Completed 12/13/2016 Appointment: María Elena Appiah WPtel: [address] [place], [place] [phone] [place] rescheduled for 12/13/16 at 11am RESCHEDULED 0 12/06/2016 Appointment: María Elena Appiah WPtel: [address] [place], [place] [phone] [place] CANCELED 11/23/2016 Patient Education: Patient Medication [...] 11/01/2016 Appointment: María Elena Appiah WPtel: [address] [place], [place] [id number] [place] 10/31 lm `sl 11/01 lm`sl MEDICATION REVIEW 017 Patient Education: Patient Medication Summary Completed 11/01/2016 Referral: Canelo Overton WPtel: [phone] [id number] Referral Initiated 10/30/2016 Visit Diagnosis Plan: Encounter [...] Z01.419 10/17/2016 Appointment: María Elena Appiah WPtel: [address] [place], [place] [id number] 10/16 confirmed ~sl PAP 10/17/2016 Patient Education: Patient Medication Summary Completed 10/17/2016 Care Plan: MAMMOGRAM SCREENING LOINC : 2 6347-5 Pending 10/17/2016 Visit Diagnosis Plan: Other seasonal allergic rhinitis Discussion: Decadron/Garamycin Nasal [place] Mix Too soon for steroid Retry zyrtec 10mg daily ICD-9 : 477.9 ICD-10 : J30.2 10/10/2016 Appointment: María Elena Appiah WPtel: [address] [place], [place] [id number] [place] FOLLOW UP 10/10/2016 Patient Education: Patient Medication Summary Completed 10/10/2016 Appointment: María Elena Appiah WPtel: [address] [place], [place] [id number] 10/02 reschedule `sl RESCHEDULED 10/02/2016 Visit Plan: See surgery for removal of n ew left arm lesion and right foot lesion Lyrica to use next month for left arm paresthesias Continue current meds Discussed sunscreen/sunblock combo 09/19/2016 Appointment: María Elena Appiah WPtel: [phone] 09/18 confirmed ~sl FOLLOW UP 09/19/2016 Patient Education: Patient Medication Summary Completed 09/19/2016 Patient Education: Patient Medication Summary Completed 09/18/2016 Care Plan: MAMMOGRAM BOTH BREASTS LOINC : 01524-7 Pending 09/18/2016 Visit Plan: Discussed that needs [...] sinuses 08/24/2016 Appointment: María Elena Appiah WPtel: [address] [place] [address] ACUTE ILLNESS 08/24/2016 Patient Education: Patient Medication Summary Completed 08/24/2016 Patient Education: Patient Medication Summary Completed 08/23/2016 Care Plan: MAMMOGRAM SCREENING LOINC : 2 6347-5 Pending 08/23/2016 Visit Plan: Finish doxycycline Add Breo 100/25 1 p BID for 2 weeks If not improving within next 2 days will get CXR 08/16/2016 Appointment: María Elena Appiahtel: [address] [place] [address] ACUTE ILLNESS 08/16/2016 Patient Education: Patient Medication Summary Completed 08/16/2016 Visit Plan: Supportive care. Rest, Fluid s, Tylenol/Motrin prn fever or bodyaches. Notify if worsening symptoms. Doxycyline and Prednisone 08/10/2016 Appointment: María Elena Appiah WPtel: [facility] [address] 08/09 lm`sl....confirmed-sp FOLLOW UP 09/2015 Patient Education: Patient Medication Summary Completed 08/10/2016 Visit Plan: Saline nasal flushes prn. Ty lenol/Motrin prn headache. Notify if persists/symptoms worsening. Dexamethasone 8mg IM today May use coricedan and mucinex 08/02/2016 Appointment: María Elena Appiah WPtel: [address] [place], [place] [id number] ACUTE ILLNESS 08/02/2016 Patient Education: Patient Medication Summary Completed 08/02/2016 Visit Plan: Cryotherapy as above and lef t forearm lesion removal as above with 5-0 punch biopsy and sent to [facility] Return in 10 days for suture removal 08/01/2016 Appointment: María Elena Appiah WPtel: [address] [place] [address] 07/31 confirmed`~ OFFICE SURGERY 08/01/2016 Patient Education: Patient Medication Summary Completed 08/01/2016 Visit Plan: Stop clindamycin Check CBC, CMP, ESR now/STAT 07/27/2016 Appointment: María Elena Appiah WPtel: [address] [place] [address] ACUTE ILLNESS 07/27/2016 Patient Education: Patient Medication Summary Completed 07/27/2016 Visit Plan: Update lab and check ABIs to start with Will likely need cardiology evaluation to rule out PVD Clindamycin for 10 days Daily yogurt or probiotic Will return for removal of left arm lesions 07/20/2016 Appointment: María Elena Appiah WPtel: [address] [place] [address] ACUTE ILLNESS 07/20/2016 Patient Education: Patient Medication Summary Completed 07/20/2016 Patient Education: Patient Medication Summary Completed 07/20/2016 Care Plan: MAMMOGRAM BOTH BREASTS LOINC : 23803-4 Pending 07/20/2016 Care Plan: US EXAM CHEST LOINC : 87932-1 Pending 07/20/2016 Visit Plan: Wound culture collected from left great toe Appearance is somewhat staph like Rx as above Wound cleanser and skin care reviewed May need to add oral antibiotic if sores do not heal or continue to reoccur 07/06/2016 Appointment: Loan Sánchez [address] [place] [address] ACUTE ILLNESS 07/06/2016 Patient Education: Patient Medication Summary Completed 07/06/2016 Appointment: María Elena Appiah WPtel: [address] [place], [place] [phone] US INJECTION 05/25/2016 Patient Education: Patient Medication Summary Completed 05/25/2016 Visit Plan: Saline nasal flushes prn. Ty lenol/Motrin prn headache. Notify if persists/symptoms worsening. Dexamethasone and Rocephin given 04/26/2016 Appointment: María Elena Appiah WPtel: [address] [place] [address] ACUTE ILLNESS 04/26/2016 Patient Education: Patient Medication Summary Completed 04/26/2016 Visit Plan: Check CBC, CMP, TSH, FreeT4, HbA1C, estradiol, lipids in AM 03/02/2016 Appointment: María Elena Appiah WPtel: [address] [place] [address] 03/01 lm~sl ACUTE ILLNESS 03/02/2016 Patient Education: Patient Medication Summary Completed 03/02/2016 Visit Plan: Exam is nearly normal Needs to be taking daily antihistamine Would prefer to use oral steroids instead of shot but patient insist that oral steroids cause horrible headaches for her Will given kenalog IM instead 02/09/2016 Appointment: Loan Sánchez [address] [place] [address] ACUTE ILLNESS 02/09/2016 Patient Education: Patient Medication Summary Completed 02/09/2016 Visit Plan: Culture urine Macrobid DC xa nax Trial of Ativan 1mg q HS 01/24/2016 Appointment: María Elena Appiah WPtel: [address] [place] [address] ACUTE ILLNESS 01/24/2016 Patient Education: Patient Medication Summary Completed 01/24/2016 Visit Plan: No steroid or rocephin injec tion warranted Can have oral prednisone Continue current home regimen Needs to follow up with Dr Sanchez if problems persist 12/23/2015 Appointment: Loan Sánchez [address] [place] [address] ACUTE ILLNESS 12/23/2015 Patient Education: Patient Medication Summary Completed 12/23/2015 Visit Plan: Saline nasal flushes prn. Ty lenol/Motrin prn headache. Notify if persists/symptoms worsening. Kenalog 40mg IM today 12/08/2015 Appointment: María Elena Appiah WPtel: [address] [place], [place] [phone] 12/06 confirmed~sl ACUTE ILLNESS 12/08/2015 Patient Education: Patient Medication Summary Completed 12/08/2015 Appointment: María Elena Appiah WPtel: [address] [place], [place] [id number] ACUTE ILLNESS 11/18/2015 Patient Education: Patient Medication Summary Completed 10/11/2015 Appointment: María Elena Appiah WPtel: [address] [place], [place] [phone] [place] INJECTION 10/07/2015 Patient Education: Patient Medication Summary Completed 10/07/2015 Visit Plan: Check renal arterial doppler s and ECHO Change amlodopine to lotrel 5/20mg q HS Will need stress test as well Check CMP, uric acid, ESR 10/06/2015 Appointment: María Elena Appiah WPtel: [address] [place], [place] [id number] ACUTE ILLNESS 10/06/2015 Patient Education: Patient Medication Summary Completed 10/06/2015 Patient Education: [facility] - Saving [employer] - Amlodipine Besylate - 18-64 - Dynamic Portal ID Completed 10/06/2015 Appointment: María Elena Appaih WPtel: [address] [place], [place] [phone] FOLLOW UP 09/22/2015 Visit Plan: Cephalexin 500 mg PO bid Mery ly topical Mupirocin to lesions on left lateral neck and face Follow-up in one week. Sooner if symptoms worsen 09/14/2015 Appointment: June Flores WPtel: [address] [place] [address] ACUTE ILLNESS 09/14/2015 Patient Education: Patient Medication Summary Completed 09/14/2015 Visit Plan: Change bystolic to bedtime d osing and amlodopine to morning dosing Cryotherapy as above to AKs 09/07/2015 Appointment: María Elena Appiah WPtel: [address] [place] [phone] 09/06 appointment made and confirmed ~sl FOLLOW UP 09/07/2015 Patient Education: Patient Medication Summary Completed 09/07/2015 Visit Plan: Increase bystolic back to 20 mg daily but will split and take 10mg in AM and 10mg in PM Stress Reducers 08/18/2015 Appointment: María Elena Appiah WPtel: [address] [place] [address] 08/17/15 appt confirmed cn ACUTE ILLNESS 08/18 Patient Education: Patient Medication Summary Completed 08/18/2015 Appointment: María Elena Appiah WPtel: [address] [place] [address] BP CHECK 07/07/2015 Patient Education: Patient Medication Summary Completed 07/07/2015 Appointment: María Elena Appiah WPtel: [address] [place] [address] BP CHECK 06/24/2015 Patient Education: Patient Medication Summary Completed 06/24/2015 Appointment: María Elena Appiah WPtel: [address] [place] [address] BP CHECK 06/21/2015 Patient Education: Patient Medication Summary Completed 06/21/2015 Visit Plan: Lab discussed Continue curre nt meds and lifestyle modification Recheck lab in 6mos 06/16/2015 Appointment: María Elena Appiah WPtel: [address] [place] [address] 06/15 confirmed FOLLOW UP 06/16/2015 Patient Education: Patient Medication Summary Completed 06/16/2015 Patient Education: Patient Medication Summary Completed 06/15/2015 Visit Plan: Increase cymbalta to 60mg q HS Keep clonidine at current dose Recheck 2weeks Change xanax to klonopin 06/02/2015 Appointment: María Elena Appiah WPtel: [address] [place] [phone] 06/02 lm FOLLOW UP 06/02/2015 Patient Education: Patient Medication Summary Completed 06/02/2015 Appointment: María Elena Appiah WPtel: [address] [place] [address] ACUTE ILLNESS 05/24/2015 Visit Plan: Increase clonidine to 0.2mg q HS Add cymbalta 30mg q HS Recheck 2weeks Stress Reducers Check fasting lab Discussed sleep study 05/20/2015 Appointment: María Elena Appiah WPtel: [address] [place] [address] ACUTE ILLNESS 05/20/2015 Patient Education: Patient Medication Summary Completed 05/20/2015 Patient Education: [facility] - [employer] - Cymbalta - 18-64 - Dynamic Portal ID Completed 05/20/2015 Appointment: María Elena Appiah WPtel: [address] [place] [address] BP CHECK 05/19/2015 Patient Education: Patient Medication Summary Completed 05/19/2015 Visit Plan: Topical Bactroban alternatin g with topical betamethasone Recheck 2weeks 05/10/2015 Appointment: María Elena Appiah WPtel: [address] [place] [address] 05/07 cn...05/07 appt confirmed OFFICE SURGER Y 05/10/2015 Patient Education: Patient Medication Summary Completed 05/10/2015 [facility]: [facility] [address] Referral Initiated 05/04/2015 Visit Plan: Saline nasal flushes prn. Ty lenol/Motrin prn headache. Notify if persists/symptoms worsening. Depomedrol 40mg IM today 03/16/2015 Appointment: María Elena Appiah WPtel: [address] [place] [address] ACUTE ILLNESS 03/16/2015 Patient Education: Patient Medication Summary Completed 03/16/2015 Appointment: María Elena Appiah WPtel: [address] [place] [address] ER Follow UP 03/09/2015 Visit Plan: Cryotherapy to lesions as ab ove 10/27/2014 Appointment: María Elena Appiah WPtel: [address] [place] [address] OFFICE SURGERY 10/27/2014 Patient Education: Patient Medication Summary Completed 10/27/2014 Appointment: June Flores WPtel: [address] [place] [address] ACUTE ILLNESS 09/11/2014 Patient Education: Patient Medication Summary Completed 09/11/2014 Visit Plan: Lab discussed Lipitor 10mg d aily Coenzyme Q-10 400mg daily Vitamin D3 5000u daily Recheck lipids with LFTs in 3mos then fwup 08/31/2014 Appointment: María Elena Appiah WPtel: [address] [place] [address] 08/28 voicemail FOLLOW UP 08/31/2014 Patient Education: Patient Medication Summary Completed 08/31/2014 Appointment: María Elena Appiah WPtel: [address] [place] [address] US LAB 08/27/2014 Appointment: María Elena Appiah WPtel: [address] [place], [place] [phone] US LAB 08/27/2014 Patient Education: Patient Medication Summary Completed 08/27/2014 Appointment: María Elena Appiah WPtel: [address] [place], [place] [phone] ACUTE ILLNESS 07/23/2014 Appointment: María Elena Appiah WPtel: [address] [place] [address] ACUTE ILLNESS 07/21/2014 Patient Education: Patient Medication Summary Completed 07/21/2014 Visit Plan: Kenalog 40mg IM today Contin ue narendra and singulair Add Flonase 07/15/2014 Appointment: María Elena Appiah WPtel: [address] [place] [phone] ACUTE ILLNESS 07/15/2014 Appointment: María Elena Appiah WPtel: [address] [place] [phone] ACUTE ILLNESS 07/15/2014 Patient Education: Patient Medication Summary Completed 07/15/2014 Visit Plan: Will do metolazone 2.5mg prn with 6 potassium and see if causes as severe cramping Trial of of seroquel XR 50mg q PM with evening meal and let us know how works 05/18/2014 Appointment: María Elena Appiah WPtel: [address] [place], [place] [phone] 05/15 left message FOLLOW UP 05/18/2014 Patient Education: Patient Medication Summary Completed 05/18/2014 Appointment: María Elena Appiah WPtel: [address] [place] [phone] LAB 05/14/2014 Patient Education: Patient Medication Summary Completed 05/14/2014 Appointment: María Elena Appiah WPtel: [address] [place] [phone] US INJECTION 04/22/2014 Visit Plan: Nimco today a nd finish abx given from urgent care 04/21/2014 Appointment: María Elena Appiah WPtel: [address] [place], [place] [phone] US INJECTION 04/21/2014 Patient Education: Patient Medication Summary Completed 04/21/2014 Appointment: June Flores WPtel: [address] [place], [place] [phone] ACUTE ILLNESS 03/04/2014 Patient Education: Patient Medication Summary Completed 03/04/2014 Appointment: María Elena Appiah WPtel: [address] [place] [phone] US INJECTION 02/27/2014 Patient Education: Patient Medication Summary Completed 02/27/2014 Visit Plan: Cryotherapy as above to all lesions Patient wants to try no meds for insomnia for a while and see how goes 01/13/2014 Appointment: María Elena Appiah WPtel: [address] [place] [address] OFFICE SURGERY 01/13/2014 Patient Education: Patient Medication Summary Completed 01/13/2014 Visit Plan: Stop Melatonin Stop Soma Tri al of trazadone 75mg q HS See ENT for possible tubes as has had chronic ETD and serous otitis media with numerous steroids 12/24/2013 Appointment: María Elena Appiah WPtel: [address] [place] [address] ACUTE ILLNESS 12/24/2013 Patient Education: Patient Medication Summary Completed 12/24/2013 Visit Plan: Saline nasal flushes prn. Ty lenol/Motrin prn headache. Notify if persists/symptoms worsening. 11/12/2013 Appointment: María Elena Appiah WPtel: [address] [place] [address] ACUTE ILLNESS 11/12/2013 Patient Education: Patient Medication Summary Completed 11/12/2013 Appointment: María Elena Appiah WPtel: [address] [place] [address] ACUTE ILLNESS 10/21/2013 Patient Education: Patient Medication Summary Completed 10/21/2013 Visit Plan: Sleep hygiene and sleep rout ine Melatonin 10mg q HS Support stockings and observe 09/22/2013 Appointment: María Elena Appiah WPtel: [address] [place] [address] ACUTE ILLNESS 09/22/2013 Patient Education: Patient Medication Summary Completed 09/22/2013 Appointment: June Flores WPtel: [address] [place] [address] ACUTE ILLNESS 08/27/2013 Patient Education: Patient Medication Summary Completed 08/27/2013 Visit Plan: Proceed with CT scan of head /neck Proceed with occipital nerve injections Butrans 20mcg patch weekly until can get into see Dr. Mcdonough for injections 08/04/2013 Appointment: María Elena Appiah WPtel: [address] [place] [address] FOLLOW UP 08/04/2013 Patient Education: Patient Medication Summary Completed 08/04/2013 Visit Plan: OMT done Daily neck stretche s, moist heat Increase Celebrex to 200mg BID Add flexeril 07/23/2013 Appointment: María Elena Appiah WPtel: [address] [place] [address] 07/22 voicemail FOLLOW UP 07/23/2013 Patient Education: Patient Medication Summary Completed 07/23/2013 Appointment: María Elena Appiah WPtel: [address] [place] [address] ACUTE ILLNESS 06/23/2013 Patient Education: Patient Medication Summary Completed 06/23/2013 Appointment: María Elena Appiah WPtel: [address] [place] [address] ACUTE ILLNESS 05/26/2013 Patient Education: Patient Medication Summary Completed 05/26/2013 Visit Plan: Decrease clonidine to 0.1mg TID If BP remains stable consider decreasing amlodopine Prednisone for 5 days BP check in 1mo 04/16/2013 Appointment: María Elena Appiah WPtel: [address] [place] [address] 04/14 pt called and confirmed appt FOLLOW UP 04/16/2013 Patient Education: Patient Medication Summary Completed 04/16/2013 Appointment: María Elena Appiah WPtel: [address] [place] [address] ACUTE ILLNESS 03/05/2013 Patient Education: Patient Medication Summary Completed 03/05/2013 Visit Plan: Pt has MARIA ELENA on with Dr. Mcdonough Continue Butrans patch Refill Hydrocodone early tomorrow 12/23/2012 Appointment: María Elena Appiah WPtel: [address] [place] [address] FOLLOW UP 12/23/2012 Patient Education: Patient Medication Summary Completed 12/23/2012 Appointment: Lashawn Eckert WPtel: [address] [place] [address] ACUTE ILLNESS 12/16/2012 Patient Education: Patient Medication Summary Completed 12/16/2012 Visit Plan: Proceed with updated MRI of LS spine Continue gabapentin and add soma and diclofenac Will likely need to go for another epidural 12/09/2012 Appointment: María Elena Appiah WPtel: [address] [place] [address] ACUTE ILLNESS 12/09/2012 Patient Education: Patient Medication Summary Completed 12/09/2012 Visit Plan: Injection as above Finish me drol dose pack Chiropracter this afternoon 12/04/2012 Appointment: María Elena Appiah WPtel: [address] [place] [address] ACUTE ILLNESS 12/04/2012 Patient Education: Patient Medication Summary Completed 12/04/2012 Appointment: Mary Tillman WPtel: [address] [place] [address] FOLLOW UP 11/22/2012 Patient Education: Patient Medication Summary Completed 11/22/2012 Appointment: María Elena Appiah WPtel: [address] [place] [address] ACUTE ILLNESS 11/21/2012 Patient Education: Patient Medication Summary Completed 11/21/2012 Appointment: María Elena Appiah WPtel: [address] [place] [address] BP CHECK 11/07/2012 Patient Education: Patient Medication [...] BP re-check. 10/29/2012 Appointment: Lashawn Eckert WPtel: [address] [place] [address] ACUTE ILLNESS 10/29/2012 Patient Education: Patient Medication Summary Completed 10/29/2012 Appointment: María Elena Appiah WPtel: [address] [place], [place] [phone] ACUTE ILLNESS 10/14/2012 Patient Education: Patient Medication Summary Completed 10/14/2012 Appointment: María Elena Appiah WPtel: [address] [place] [address] UA 09/27/2012 Patient Education: Patient Medication Summary Completed 09/27/2012 Appointment: María Elena Appiah WPtel: [address] [place] [address] ACUTE ILLNESS 09/25/2012 Patient Education: Patient Medication Summary Completed 09/25/2012 Appointment: María Elena Appiah WPtel: [address] [place] [address] BP CHECK 09/24/2012 Appointment: María Elena Appiah WPtel: [address] [place] [address] ACUTE ILLNESS 08/29/2012 Patient Education: Patient Medication Summary Completed 08/29/2012 Visit Plan: Cryotherapy as above See Karlos m for right ear lesion--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 OFFICE SURGERY 08/12/2012 Patient Education: Patient Medication Summary Completed 08/12/2012 Appointment: María Elena Appiah WPtel: [address] [place], [place] [phone] 05/03 vm on pt phone...pt called on 04/11 3 pt called wanting in had no one cancel so could not get her in for an appt sooner than 05/06. ACUTE ILLNESS 05/06/2012 Patient Education: Patient Medication Summary Completed 05/06/2012 Visit Plan: Pt wants to hold on any furt her sleep medications 04/03/2012 Appointment: María Elena Appiahtel: [address] [place] [address] FOLLOW UP 04/03/2012 Patient Education: Patient Medication Summary Completed 04/03/2012 Appointment: María Elena Appiah WPtel: [address] [place] [address] FOLLOW UP 03/19/2012 Patient Education: Patient Medication Summary Completed 03/19/2012 Appointment: María Elena Appiahtel: [address] [place] [address] BP CHECK 02/22/2012 Patient Education: Patient Medication Summary Completed 02/22/2012 Appointment: María Elena Appiah WPtel: [address] [place] [address] BP CHECK 02/21/2012 Patient Education: Patient Medication Summary Completed 02/21/2012 Visit Plan: Doxycycline and bactroban fo r foot Supportive care on ankles and knees Add norvasc for BP 02/20/2012 Appointment: María Elena Appiahtel: [address] [place] [address] ER Follow UP 02/20/2012 Patient Education: Patient Medication Summary Completed 02/20/2012 Appointment: María Elena Appiahtel: [address] [place] [address] ACUTE ILLNESS 01/30/2012 Patient Education: Patient Medication Summary Completed 01/30/2012 Appointment: María Elena Appiahtel: [address] [place] [address] ACUTE ILLNESS 01/24/2012 Patient Education: Patient Medication Summary Completed 01/24/2012 Visit Plan: Daily back stretches, moist heat, Biofreeze prn OMT done 01/10/2012 Appointment: María Elena Appiah WPtel: [address] [place] [address] ACUTE ILLNESS 01/10/2012 Patient Education: Patient Medication Summary Completed 01/10/2012 Appointment: María Elena Appiah WPtel: [address] [place] [address] FOLLOW UP 12/11/2011 Patient Education: Patient Medication Summary Completed 12/11/2011 Appointment: María Elena Appiah WPtel: [address] [place] [address] ACUTE ILLNESS 11/09/2011 Patient Education: Patient Medication Summary Completed 11/09/2011 Appointment: María Elena Appiah WPtel: [address] [place] [address] ACUTE ILLNESS 09/13/2011 Patient Education: Patient Medication Summary Completed 09/13/2011 Visit Plan: Check CBC, TSH, Free T4, CMP , ESR, Vit D, B12 now Start Prednisone today 08/31/2011 Appointment: María Elena Appiah WPtel: [address] [place] [address] ACUTE ILLNESS 08/31/2011 Patient Education: Patient Medication Summary Completed 08/31/2011 Appointment: María Elena Appiah WPtel: [address] [place] [address] US INJECTION 07/20/2011 Patient Education: Patient Medication Summary Completed 07/20/2011 Visit Plan: Continue current meds Monite r BP Cont stretches from PT 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 07/06/2011 Appointment: María Elena Appiahtel: [address] [place] [address] FOLLOW UP 07/06/2011 Patient Education: Patient Medication Summary Completed 07/06/2011 Appointment: María Elena Appiah WPtel: [address] [place] [address] BP CHECK 06/06/2011 Patient Education: Patient Medication Summary Completed 06/06/2011 Visit Plan: Add Bystolic at 2.5mg QAM Ad d Robaxin 750mg 2 po q HS BP check in 2wks 05/22/2011 Appointment: María Elena Appiah WPtel: [address] [place], [place] [phone] FOLLOW UP 05/22/2011 Patient Education: Patient Medication Summary Completed 05/22/2011 Appointment: María Elena Appiah WPtel: [address] [place], [place] [phone] ER Follow UP 05/09/2011 Patient Education: Patient Medication Summary Completed 05/09/2011 Appointment: María Elena Appiah WPtel: [address] [place], [place] [phone] FOLLOW UP 02/22/2011 Visit Plan: Rx written for Hydrocodone 1 0/325mg #240 See Ortho 02/14/2011 Appointment: María Elena Appiah WPtel: [address] [place] [address] OMT 02/14/2011 Patient Education: Patient Medication Summary [...] lab work. 02/03/2011 Appointment: Lashawn Eckert WPtel: [address] [place], [place] [phone] ACUTE ILLNESS 02/03/2011 Patient Education: Patient Medication Summary Completed 02/03/2011 Visit Plan: OMT done Cont daily stretche s 01/31/2011 Appointment: María Elena Appiah WPtel: [address] [place] [address] ACUTE ILLNESS 01/31/2011 Patient Education: Patient Medication Summary Completed 01/31/2011 Visit Plan: Continue pain meds OMT done Proceed with PT No work this summer01/25/2011 Appointment: María Elena Appiah WPtel: [address] [place] [address] ACUTE ILLNESS 01/25/2011 Patient Education: Patient Medication Summary Completed 01/25/2011 Visit Plan: Start PT Long discussion abo ut getting pain meds from only and can only have max of 4grams of tylenol per day Change to Hydrocodone 10/325mg 1- 2 po TID prn pain--#180 called to [facility] 01/18/2011 Appointment: María Elena Appiah WPtel: [address] [place] [address] FOLLOW UP 01/18/2011 Patient Education: Patient Medication Summary Completed 01/18/2011 Visit Plan: Daily back stretches, moist heat, Biofreeze prn 11/29/2010 Appointment: María Elena Appiah WPtel: [address] [place] [address] ER Follow UP 11/29/2010 Patient Education: Patient Medication Summary Completed 11/29/2010 Visit Plan: Saline nasal flushes prn. Ty lenol/Motrin prn headache. Notify if persists/symptoms worsening. Finish augmentin Add Medrol Dose Pack 10/10/2010 Appointment: María Elena Appiah WPtel: [address] [place] [address] ACUTE ILLNESS 10/10/2010 Patient Education: Patient Medication Summary Completed 10/10/2010 Visit Plan: Cryotherapy x3 to multiple l esions on both forearms 07/19/2010 Appointment: María Elena Appiah WPtel: [address] [place], [place] [phone] US OFFICE SURGERY 07/19/2010 Patient Education: Patient Medication Summary Completed 07/19/2010 Appointment: María Elena Appiah WPtel: [address] [place] [address] BP CHECK 07/06/2010 Patient Education: Patient Medication Summary Completed 07/06/2010 Appointment: María Elena Appiah WPtel: [address] [place] [address] BP CHECK 06/30/2010 Patient Education: Patient Medication Summary Completed 06/30/2010 Appointment: María Elena Appiah WPtel: [address] [place] [address] BP CHECK 06/20/2010 Patient Education: Patient Medication Summary Completed 06/20/2010 Visit Plan: Change Diovan to Exforge 160 /5mg QD OMT done to thoracics BP check in 2wks 06/07/2010 Appointment: María Elena Appiah WPtel: [address] [place] [address] FOLLOW UP 06/07/2010 Patient Education: Patient Medication Summary Completed 06/07/2010 Appointment: María Elena Appiahtel: [address] [place] [address] BP CHECK 06/03/2010 Patient Education: Patient Medication Summary Completed 06/03/2010 Appointment: María Elena Appiah WPtel: [address] [place] [address] BP CHECK 06/01/2010 Patient Education: Patient Medication Summary Completed 06/01/2010 Visit Plan: Irritated skin tags to left neck x2 excised at base with scissors and base cauterized 05/30/2010 Appointment: María Elena Appiah WPtel: [address] [place] [address] OFFICE SURGERY 05/30/2010 Patient Education: Patient Medication Summary Completed 05/30/2010 Visit Plan: Saline nasal flushes prn. Ty lenol/Motrin prn headache. Notify if persists/symptoms worsening. Restart Nasonex Has allergy testing set for May 25 04/27/2010 Appointment: María Elena Appiahtel: [address] [place] [address] ACUTE ILLNESS 04/27/2010 Patient Education: Patient Medication Summary Completed 04/27/2010 Visit Plan: Saline nasal flushes prn. Ty lenol/Motrin prn headache. Notify if persists/symptoms worsening. Omnaris BID plus injections 04/05/2010 Appointment: María Elena Appiahtel: [address] [place] [address] ACUTE ILLNESS 04/05/2010 Patient Education: Patient Medication Summary Completed 04/05/2010 Visit Plan: Saline nasal flushes prn. Ty lenol/Motrin prn headache. Notify if persists/symptoms worsening. 03/09/2010 Appointment: María Elena Appiah WPtel: [address] [place] [address] ACUTE ILLNESS 03/09/2010 Patient Education: Patient Medication Summary Completed 03/09/2010 Visit Plan: Cont Clonidine as is Cont Pr emarin Fwup with surgery as scheduled 03/03/2010 Appointment: María Elena Appiahtel: [address] [place] [address] FOLLOW UP 03/03/2010 Patient Education: Patient Medication Summary Completed 03/03/2010 Visit Plan: Check Pelvic US now Discusse d Dand C vs Hysterectomy 01/17/2010 Appointment: María Elena Appiahtel: [address] [place] [address] ACUTE ILLNESS 01/17/2010 Patient Education: Patient Medication Summary Completed 01/17/2010 Visit Plan: Check fasting lab and schedu le Mammogram 2gm Na Diet Trial of Ambien 10mg qhs Fwup pending lab results 12/27/2009 Appointment: María Elena Appiahtel: [address] [place] [address] ESTABLISHED PATIENT 12/27/2009 Patient Education: Patient Medication Summary Completed 12/27/2009 Referral: Tian Canelo Pollardan WPtel: [address] [id number] [place] Referral Initiated Referral: Philipp Flores WPtel: [address] [id number] [place] Referral Appointment Requested Instructions Comment . [...]
--- OUTSIDE RECORDS SUMMARY | 2020-03-13 06:26 | XMS REPORT | CCD ---
Author Author Gale Appiah D.O. Organization [facility] Address [address] [place] [id number] Phone Care Team Providers [facility] [employer] Name Role Phone María Elena Appiah D.O., PP Unavailable CCM Unavailable Summary Purpose Interface Exchange Insurance Providers Payer name Policy type / Coverage type Covered democrat ID Effective Begin Date Effective End Date [facility] Commercial Insurance [id number] Unknown Family History Family History data not found Social History Social History Element Codes Description Effective Dates Tobacco history SNOMED CT: [id number] Never smoker 05/22/2011 Allergies, Adverse Reactions, Alerts [...] Fill Instructions Keflex 500 mg capsule RxNorm: 665479 1 Capsule(s) Oral two time s a day 10/07/2019 10/14/2019 Active Premarin 1.25 mg tablet RxNorm: 290948 1 Tablet(s) Oral QD 09/30/1906/25/2020 Active hydrocodone 10 mg-acetaminophen 325 mg tablet RxNorm: 497271 1-2 Tablet(s) Oral three times a day as needed for pain 09/30/2019 09/30/2019 Inactive gabapentin 300 mg capsule RxNorm: 322231 TAKE ONE CAPSU LE BY MOUTH EVERY NIGHT AT BEDTIME 09/19/2019 No Stop Date Active baclofen 10 mg tablet RxNorm: 541390 TAKE ONE TABLET BY MOUTH THREE TIMES A DAY NEEDED 09/19/2019 No Stop Date Active Klor-Con 8 mEq tablet,extended release RxNorm: 224284 T FARRUKH ONE TABLET BY MOUTH TWICE A DAY 1 Tablet(s) Oral two times a day 09/19/2019 10/19/2019 Act darion hydrocodone 10 mg-acetaminophen 325 mg tablet RxNorm: 861964 1-2 Tablet(s) Oral three times a day as needed for pain 09/19/2019 09/29/2019 Inactive duloxetine 60 mg capsule,delayed release RxNorm: 833080 TAKE ONE CAPSULE BY MOUTH DAILY 09/11/2019 No Stop Date Active Lipitor 10 mg tablet RxNorm: 456350 TAKE ONE TABLET BY MOUTH AT BEDTIME 09/11/2019 No Stop Date Active lisinopril 20 mg tablet RxNorm: 625915 TAKE ONE TABLET BY MOUTH DAILY .... THIS REPLACE 10MG TABLETS 09/11/2019 No Stop Date Active triamterene 75 mg-hydrochlorothiazide 50 mg tablet RxNorm: 3 55305 TAKE ONE TABLET BY MOUTH DAILY 09/11/2019 No Stop Date Active allopurinol 300 mg tablet RxNorm: 272442 TAKE ONE TABLET BY LOPEZ TH DAILY 09/11/2019 No Stop Date Active celecoxib 200 mg capsule RxNorm: 591039 TAKE ONE CAPSUL E BY MOUTH TWICE A DAY NEEDED FOR PAIN 09/11/2019 No Stop Date Active clonidine HCl 0.1 mg tablet RxNorm: 386989 TAKE ONE TAB LET BY MOUTH FOUR TIMES A DAY 09/11/2019 No Stop Date Active doxepin 25 mg capsule RxNorm: 8334261 1 Capsule(s) Oral every night at bedtime as needed for sleep 08/21/2019 11/18/2019 Active hydrocodone 10 mg-acetaminophen 325 mg tablet RxNorm: 070779 1-2 Tablet(s) PO TID 08/12/2019 09/29/2019 Inactive as needed for pa in - Previous quantity #240, will start dosing for #180 in April 2011 per Doctor Td. Medrol (Dustin) 4 mg tablets in a dose pack RxNorm: 680765 Tablet(s) Oral As Directed 07/21/2019 09/29/2019 Inactive Premarin 1.25 mg tablet RxNorm: 825397 1 Tablet(s) Oral QD 07/02/20 19 09/29/2019 Inactive hydrocodone 10 mg-acetaminophen 325 mg tablet RxNorm: 486261 1-2 Tablet(s) PO TID 07/01/2019 08/11/2019 Inactive as needed for pa in - Previous quantity #240, will start dosing for #180 in April 2011 per Doctor Td. gabapentin 300 mg capsule RxNorm: 710683 1 Capsule(s) PO QHS 201809/18/2019 Inactive celecoxib 200 mg capsule RxNorm: 582566 1 Capsule(s) Or al two times a day as needed for pain 06/27/2019 06/27/2019 Inactive Singulair 10 mg tablet RxNorm: 681563 TAKE ONE TABLET BY MOUTH JOSÉ Y 06/24/2019 No Stop Date Active furosemide 40 mg tablet RxNorm: 245148 TAKE ONE TABLET BY MOUTH EVERY MORNING NEEDED FOR EDEMA . TAKE WITH POTASSIUM 06/24/2019 No Stop Date Active doxepin 25 mg capsule RxNorm: 9669156 TAKE ONE CAPSULE B Y MOUTH EVERY NIGHT AT BEDTIME NEEDED FOR SLEEP 06/24/2019 08/20/2019 Inactive lisinopril 20 mg tablet RxNorm: 106742 TAKE ONE TABLET BY MOUTH DAILY .... THIS REPLACE 10MG TABLETS 06/24/2019 09/10/2019 Inactive nystatin-triamcinolone 100,000 unit/g-0.1 % topical cream Rx Norm: 1312846 1 Application Topical two times a day 06/12/2019 06/19/2019 Inactive apply BID for 1 week nystatin-triamcinolone 100,000 unit/g-0.1 % topical cream Rx Norm: 3535238 1 Application Topical two times a day 06/12/2019 06/11/2019 Inactive apply BID for 1 week hydrocodone 10 mg-acetaminophen 325 mg tablet RxNorm: 199493 1-2 Tablet(s) PO QID as needed for pain MUST LAST 30 DAYS 05/28/2019 06/26/2019 Inactiv e (Response to an electronic controlled substance refill request - RxReferenceNumber: [id number]) baclofen 20 mg tablet RxNorm: 357272 1 Tablet(s) PO TID as needed for muscle spasm 05/19/2019 05/27/2019 Inactive gabapentin 300 mg capsule RxNorm: 676724 1 Capsule(s) PO QHS 201805/27/2019 Inactive lisinopril 20 mg tablet RxNorm: 928706 1 Tablet(s) PO Q D TAKE ONE TABLET BY MOUTH DAILY, REPLACES 10 MG DOSE 05/19/2019 06/23/2019 Inactive doxepin 25 mg capsule RxNorm: 6161611 TAKE ONE CAPSULE B Y MOUTH EVERY NIGHT AT BEDTIME NEEDED FOR SLEEP 05/16/2019 06/14/2019 Inactive lisinopril 20 mg tablet RxNorm: 942262 TAKE ONE TABLET BY MOUTH DAILY, REPLACES 10 MG DOSE 05/16/2019 05/18/2019 Inactive Singulair 10 mg tablet RxNorm: 923082 TAKE ONE TABLET BY MOUTH JOSÉ Y 05/16/2019 06/14/2019 Inactive gabapentin 300 mg capsule RxNorm: 200878 1 Capsule(s) PO QHS 201805/04/2019 Inactive estropipate 1.5 mg tablet RxNorm: 755557 1 Tablet(s) PO QD 05/05/20 19 05/27/2019 Inactive estropipate 1.5 mg tablet RxNorm: 091067 1 Tablet(s) PO QD 05/05/20 19 05/04/2019 Inactive gabapentin 300 mg capsule RxNorm: 512023 1 Capsule(s) PO QHS 201805/18/2019 Inactive hydrocodone 10 mg-acetaminophen 325 mg tablet RxNorm: 469913 1-2 Tablet(s) PO QID as needed for pain MUST LAST 30 DAYS 04/25/2019 05/24/2019 Inactiv e (Response to an electronic controlled substance refill request - RxReferenceNumber: [id number]) metoprolol tartrate 100 mg tablet RxNorm: 944657 TAKE O NE TABLET BY MOUTH TWICE A DAY 04/24/2019 06/22/2019 Inactive cyclobenzaprine 10 mg tablet RxNorm: 026337 TAKE ONE TA BLET BY MOUTH THREE TIMES A DAY NEEDED FOR MUSCLE SPASMS 04/24/2019 05/18/2019 Inactive Lyrica 75 mg capsule RxNorm: 893279 1 Capsule(s) PO QHS 03/25/2019 Inactive duloxetine 60 mg capsule,delayed release RxNorm: 282285 TAKE ONE CAPSULE BY MOUTH DAILY 03/21/2019 05/19/2019 Inactive triamterene 75 mg-hydrochlorothiazide 50 mg tablet RxNorm: 3 79224 TAKE ONE TABLET BY MOUTH DAILY 03/21/2019 05/19/2019 Inactive Klor-Con 8 mEq tablet,extended release RxNorm: 816591 T FARRUKH ONE TABLET BY MOUTH TWICE A DAY 03/21/2019 09/18/2019 Inactive Lipitor 10 mg tablet RxNorm: 464464 TAKE ONE TABLET BY MOUTH AT BEDTIME 03/21/2019 09/10/2019 Inactive clonidine HCl 0.1 mg tablet RxNorm: 077358 TAKE ONE TAB LET BY MOUTH FOUR TIMES A DAY 03/21/2019 05/19/2019 Inactive allopurinol 300 mg tablet RxNorm: 790896 TAKE ONE TABLET BY LOPEZ TH DAILY 03/21/2019 05/19/2019 Inactive hydrocodone 10 mg-acetaminophen 325 mg tablet RxNorm: 056810 1-2 Tablet(s) PO QID as needed for pain MUST LAST 30 DAYS 02/28/2019 03/29/2019 Inactiv e (Response to an electronic controlled substance refill request [id number]) furosemide 40 mg tablet RxNorm: 400998 TAKE ONE TABLET BY MOUTH EVERY MORNING NEEDED FOR EDEMA . TAKE WITH POTASSIUM 02/21/2019 03/22/2019 Inactive cyclobenzaprine 10 mg tablet RxNorm: 054866 TAKE ONE TA BLET BY MOUTH THREE TIMES A DAY NEEDED FOR MUSCLE SPASMS 02/21/2019 04/21/2019 Inactive lisinopril 20 mg tablet RxNorm: 029386 TAKE ONE TABLET BY MOUTH DAILY, REPLACES 10 MG DOSE 02/21/2019 05/15/2019 Inactive doxepin 25 mg capsule RxNorm: 3772866 TAKE ONE CAPSULE B Y MOUTH EVERY NIGHT AT BEDTIME NEEDED FOR SLEEP 02/21/2019 05/15/2019 Inactive nystatin 100,000 unit/gram topical cream RxNorm: 054025 APPLY TO AFFECTED AREA(S) TWO TIMES A DAY 02/21/2019 03/22/2019 Inactive estradiol 1 mg tablet RxNorm: 267081 2 Tablet(s) PO QD replaces premarin 01/22/2019 05/04/2019 Inactive lisinopril 20 mg tablet RxNorm: 303978 TAKE ONE TABLET BY MOUTH DAILY, REPLACES 10 MG DOSE 01/20/2019 02/18/2019 Inactive cyclobenzaprine 10 mg tablet RxNorm: 729822 TAKE ONE TA BLET BY MOUTH THREE TIMES A DAY NEEDED FOR MUSCLE SPASMS 01/20/2019 02/18/2019 Inactive metoprolol tartrate 100 mg tablet RxNorm: 471600 TAKE O NE TABLET BY MOUTH TWICE A DAY 01/20/2019 02/18/2019 Inactive cyclobenzaprine 10 mg tablet RxNorm: 405612 TAKE ONE TA BLET BY MOUTH THREE TIMES A DAY NEEDED FOR MUSCLE SPASMS 12/19/2018 01/17/2019 Inactive lisinopril 20 mg tablet RxNorm: 634431 TAKE ONE TABLET BY MOUTH DAILY, REPLACES 10 MG DOSE 12/19/2018 01/17/2019 Inactive duloxetine 60 mg capsule,delayed release RxNorm: 175691 TAKE ONE CAPSULE BY MOUTH DAILY 12/19/2018 01/17/2019 Inactive Lipitor 10 mg tablet RxNorm: 509104 TAKE ONE TABLET BY MOUTH AT BEDTIME 12/19/2018 01/17/2019 Inactive cyclobenzaprine 10 mg tablet RxNorm: 566877 1 Tablet(s) PO TID as needed for muscle spasm 11/19/2018 12/18/2018 Inactive Singulair 10 mg tablet RxNorm: 939642 1 Tablet(s) PO QD 11/19/2018 Inactive lisinopril 20 mg tablet RxNorm: 127639 TAKE ONE TABLET BY MOUTH DAILY, REPLACES 10 MG DOSE 11/15/2018 12/18/2018 Inactive hydrocodone 10 mg-acetaminophen 325 mg tablet RxNorm: 869140 1-2 Tablet(s) PO QID as needed for pain MUST LAST 30 DAYS 11/13/2018 12/12/2018 Inactiv e (Response to an electronic controlled substance refill request - RxReferenceNumber: [id number]) nystatin 100,000 unit/gram topical cream RxNorm: 107960 APPLY TO AFFECTED AREA(S) TWO TIMES A DAY 10/23/2018 11/06/2018 Inactive lisinopril 20 mg tablet RxNorm: 418336 1 Tablet(s) PO QD replac es 10mg dose 10/18/2018 11/14/2018 Inactive hydrocodone 10 mg-acetaminophen 325 mg tablet RxNorm: 603842 1-2 Tablet(s) QID as needed for pain MUST LAST 30 DAYS 10/08/2018 11/06/2018 Inactive (Response to an electronic controlled substance refill request - RxReferenceNumber: [id number]) lisinopril 10 mg tablet RxNorm: 466610 1 Tablet(s) PO QD 10/03/2018 0 01/21/2019 Inactive Celebrex 200 mg capsule RxNorm: 234440 TAKE ONE CAPSULE BY MOUT H TWICE A DAY 09/30/2018 05/04/2019 Inactive cyclobenzaprine 10 mg tablet RxNorm: 009723 TAKE ONE TA BLET BY MOUTH THREE TIMES A DAY NEEDED FOR MUSCLE SPASMS 09/30/2018 11/18/2018 Inactive doxepin 25 mg capsule RxNorm: 9996200 TAKE ONE CAPSULE B Y MOUTH EVERY NIGHT AT BEDTIME NEEDED 09/05/2018 10/16/2018 Inactive omeprazole 40 mg capsule,delayed release RxNorm: 505017 TAKE ONE CAPSULE BY MOUTH DAILY 09/05/2018 01/21/2019 Inactive furosemide 40 mg tablet RxNorm: 373253 TAKE ONE TABLET BY MOUTH EVERY MORNING NEEDED FOR EDEMA . TAKE WITH POTASSIUM 09/05/2018 11/03/2018 Inactive phentermine 37.5 mg tablet RxNorm: 675349 1 Tablet(s) PO QAM 201701/21/2019 Inactive doxepin 25 mg capsule RxNorm: 9302565 1 Capsule(s) PO QH S as needed for sleep TAKE ONE CAPSULE BY MOUTH EVERY NIGHT AT BEDTIME NEEDED 08/27/2018 09/04/2018 Inactive Keflex 500 mg capsule RxNorm: 755194 1 Capsule(s) PO TID 08/09/2018 1 10/19/2017 Inactive Diflucan 100 mg tablet RxNorm: 808881 1 Tablet(s) PO QD 08/09/2018 Inactive Premarin 1.25 mg tablet RxNorm: 713952 2 Tablet(s) PO QD 08/09/2018 0 05/04/2019 Inactive Zofran ODT 4 mg disintegrating tablet RxNorm: 396468 1 Tablet(s) PO Q4H as needed for nausea 08/09/2018 01/21/2019 Inactive metoprolol tartrate 100 mg tablet RxNorm: 940848 TAKE O NE TABLET BY MOUTH TWICE A DAY 2018 10/04/2018 Inactive doxepin 25 mg capsule RxNorm: 1936321 TAKE ONE CAPSULE B Y MOUTH EVERY NIGHT AT BEDTIME NEEDED 2018 08/26/2018 Inactive cyclobenzaprine 10 mg tablet RxNorm: 756985 TAKE ONE TA BLET BY MOUTH THREE TIMES A DAY NEEDED FOR MUSCLE SPASMS 2018 09/29/2018 Inactive hydrocodone 10 mg-acetaminophen 325 mg tablet RxNorm: 223803 1-2 Tablet(s) QID as needed for pain MUST LAST 30 DAYS 07/29/2018 08/27/2018 Inactive (Response to an electronic controlled substance refill request - RxReferenceNumber: [id number]) nystatin 100,000 unit/gram topical powder RxNorm: 917663 Applic ation TOP BID 07/22/2018 08/04/2018 Inactive doxepin 25 mg capsule RxNorm: 8361992 1 Capsule(s) PO QHS as needed 07/22/2018 08/05/2018 Inactive triamterene 75 mg-hydrochlorothiazide 50 mg tablet RxNorm: 3 80096 TAKE ONE TABLET BY MOUTH DAILY 07/05/2018 10/02/2018 Inactive duloxetine 60 mg capsule,delayed release RxNorm: 588067 TAKE ONE CAPSULE BY MOUTH DAILY 07/05/2018 09/02/2018 Inactive Klor-Con 8 mEq tablet,extended release RxNorm: 001869 T FARRUKH ONE TABLET BY MOUTH TWICE A DAY 07/05/2018 10/02/2018 Inactive Lipitor 10 mg tablet RxNorm: 592535 TAKE ONE TABLET BY MOUTH AT BEDTIME 07/05/2018 09/02/2018 Inactive allopurinol 300 mg tablet RxNorm: 558442 TAKE ONE TABLET BY LOPEZ TH DAILY 07/05/2018 10/02/2018 Inactive clonidine HCl 0.1 mg tablet RxNorm: 356099 TAKE ONE TAB LET BY MOUTH FOUR TIMES A DAY 07/05/2018 10/02/2018 Inactive hydrocodone 10 mg-acetaminophen 325 mg tablet RxNorm: 577327 1-2 Tablet(s) QID as needed for pain MUST LAST 30 DAYS 06/28/2018 07/27/2018 Inactive (Response to an electronic controlled substance refill request - RxReferenceNumber: [id number]) MediHoney (calcium alginate-honey) 4" X 5" bandage RxNorm: 1 Application TOP QD 06/17/2018 06/26/2018 Inactive honey-hydrocolloid dressing 4" X 5" RxNorm: 1 Application TOP QD 06/17/2018 07/16/2018 Inactive furosemide 40 mg tablet RxNorm: 342463 TAKE ONE TABLET BY MOUTH EVERY MORNING NEEDED FOR EDEMA . TAKE WITH POTASSIUM 06/10/2018 07/09/2018 Inactive This is a refill request. hydrocodone 10 mg-acetaminophen 325 mg tablet RxNorm: 185448 1-2 Tablet(s) QID as needed for pain MUST LAST 30 DAYS 05/30/2018 06/27/2018 Inactive (Response to an electronic controlled substance refill request - RxReferenceNumber: [id number]) acyclovir 800 mg tablet RxNorm: 352926 1 Tablet(s) PO 5x day 201705/22/2018 Inactive Premarin 1.25 mg tablet RxNorm: 707929 1-2 Tablet(s) PO QD 05/15/20 18 07/13/2018 Inactive cyclobenzaprine 10 mg tablet RxNorm: 351718 1 Tablet(s) PO TID as needed for muscle spasm 05/09/2018 05/08/2018 Inactive Medrol (Dustin) 4 mg tablets in a dose pack RxNorm: 232079 Tablet(s) PO As Directed 05/02/2018 06/16/2018 Inactive hydrocodone 10 mg-acetaminophen 325 mg tablet RxNorm: 889299 1-2 Tablet(s) QID as needed for pain MUST LAST 30 DAYS 04/30/2018 05/29/2018 Inactive (Response to an electronic controlled substance refill request - RxReferenceNumber: [id number]) duloxetine 60 mg capsule,delayed release RxNorm: 908978 TAKE ONE CAPSULE BY MOUTH DAILY 04/16/2018 05/15/2018 Inactive Celebrex 200 mg capsule RxNorm: 438416 TAKE ONE CAPSULE BY MOUT H TWICE A DAY 04/16/2018 06/14/2018 Inactive Singulair 10 mg tablet RxNorm: 177737 TAKE ONE TABLET BY MOUTH JOSÉ Y 04/16/2018 11/19/2018 Inactive Lipitor 10 mg tablet RxNorm: 793939 TAKE ONE TABLET BY MOUTH AT BEDTIME 04/16/2018 05/15/2018 Inactive hydrocodone 10 mg-acetaminophen 325 mg tablet RxNorm: 391837 1-2 Tablet(s) QID as needed for pain MUST LAST 30 DAYS 03/29/2018 04/27/2018 Inactive (Response to an electronic controlled substance refill request - RxReferenceNumber: [id number]) cyclobenzaprine 10 mg tablet RxNorm: 316316 1 Tablet(s) PO TID as needed for muscle spasm 03/18/2018 05/09/2018 Inactive omeprazole 40 mg capsule,delayed release RxNorm: 711712 1 Capsu le(s) PO QD 02/26/2018 08/24/2018 Inactive hydrocodone 10 mg-acetaminophen 325 mg tablet RxNorm: 499336 1-2 Tablet(s) QID as needed for pain MUST LAST 30 DAYS 02/26/2018 03/27/2018 Inactive (Response to an electronic controlled substance refill request - RxReferenceNumber: [id number]) metoprolol tartrate 100 mg tablet RxNorm: 602336 1 Tablet(s) PO BID 02/18/2018 08/05/2018 Inactive Lyrica 75 mg capsule RxNorm: 506196 1 Capsule(s) PO QHS 01/30/2018 Inactive phentermine 37.5 mg tablet RxNorm: 965905 1 Tablet(s) PO QAM 201706/16/2018 Inactive hydrocodone 10 mg-acetaminophen 325 mg tablet RxNorm: 390675 1-2 Tablet(s) QID as needed for pain MUST LAST 30 DAYS 01/29/2018 02/25/2018 Inactive (Response to an electronic controlled substance refill request - RxReferenceNumber: [id number]) Klor-Con 8 mEq tablet,extended release RxNorm: 893268 1 Tablet( s) PO BID 01/14/2018 07/04/2018 Inactive allopurinol 300 mg tablet RxNorm: 531562 1 Tablet(s) PO QD 01/15/2007/04/2018 Inactive Lipitor 10 mg tablet RxNorm: 219647 1 Tablet(s) PO QHS 01/14/201812/2017 Inactive triamterene 75 mg-hydrochlorothiazide 50 mg tablet RxNorm: 3 06519 1 Tablet(s) PO QD 01/14/2018 07/04/2018 Inactive hydrocodone 10 mg-acetaminophen 325 mg tablet RxNorm: 463329 1-2 Tablet(s) QID as needed for pain MUST LAST 30 DAYS 12/27/2017 01/25/2018 Inactive (Response to an electronic controlled substance refill request - RxReferenceNumber: [id number]) Onglyza 5 mg tablet RxNorm: 672451 1 Tablet(s) PO QD 12/18/201701/29 Inactive metformin 500 mg tablet RxNorm: 077239 1 Tablet(s) PO BID 12/11/2017 12/10/2017 Inactive metformin 500 mg tablet RxNorm: 887801 1 Tablet(s) PO BID 12/11/2017 12/17/2017 Inactive furosemide 40 mg tablet RxNorm: 590349 1 Tablet(s) PO Q AM prn edema--take with potassium 12/11/2017 06/08/2018 Inactive cyclobenzaprine 10 mg tablet RxNorm: 127699 1 Tablet(s) PO TID as needed for muscle spasm 12/11/2017 03/18/2018 Inactive hydrocodone 10 mg-acetaminophen 325 mg tablet RxNorm: 026688 1-2 Tablet(s) QID as needed for pain MUST LAST 30 DAYS 10/23/2017 11/21/2017 Inactive (Response to an electronic controlled substance refill request - RxReferenceNumber: [id number]) Lipitor 10 mg tablet RxNorm: 756167 1 Tablet(s) PO QHS 10/16/201703/2018 Inactive cyclobenzaprine 10 mg tablet RxNorm: 679581 1 Tablet(s) PO TID as needed for muscle spasm 10/09/2017 12/10/2017 Inactive hydroxyzine HCl 25 mg tablet RxNorm: 678337 1 Tablet(s) PO BID as needed for anxiety 09/20/2017 01/29/2018 Inactive Effexor XR 75 mg capsule,extended release RxNorm: 162533 1 Caps ule(s) PO QD 09/20/2017 01/29/2018 Inactive metoprolol tartrate 100 mg tablet RxNorm: 525122 1 Tablet(s) PO BID 08/20/2017 02/18/2018 Inactive baclofen 20 mg tablet RxNorm: 611376 1 Tablet(s) PO TID as needed for muscle spasm 08/20/2017 01/21/2019 Inactive clonidine HCl 0.1 mg tablet RxNorm: 411121 1 Tablet(s) PO QID 08/2005/16/2018 Inactive Seroquel 25 mg tablet RxNorm: 059182 1 Tablet(s) PO QHS 08/17/2017 Inactive Seroquel 25 mg tablet RxNorm: 122090 1 Tablet(s) PO QHS 08/17/2017 Inactive Diflucan 100 mg tablet RxNorm: 219226 TAKE ONE TABLET BY MOUTH JOSÉ Y 07/25/2017 08/07/2017 Inactive hydrocodone 10 mg-acetaminophen 325 mg tablet RxNorm: 096100 1-2 Tablet(s) QID as needed for pain MUST LAST 30 DAYS 07/19/2017 08/17/2017 Inactive (Response to an electronic controlled substance refill request - RxReferenceNumber: [id number]) clindamycin 300 mg capsule RxNorm: 658206 1 Capsule(s) PO TID 07/1907/28/2017 Inactive clotrimazole-betamethasone 1 %-0.05 % topical cream RxNorm: 063976 Application TOP BID to elbow rash 07/19/2017 06/16/2018 Inactive Singulair 10 mg tablet RxNorm: 212980 Tablet(s) TAKE ONE TABLET BY MOUTH DAILY 07/18/2017 04/13/2018 Inactive triamterene 75 mg-hydrochlorothiazide 50 mg tablet RxNorm: 3 64840 1 Tablet(s) PO QD 07/18/2017 01/14/2018 Inactive Celebrex 200 mg capsule RxNorm: 007673 Capsule(s) TAKE ONE CAPSULE BY MOUTH TWICE A DAY 07/18/2017 10/15/2017 Inactive hydrocodone 10 mg-acetaminophen 325 mg tablet RxNorm: 192895 1-2 Tablet(s) QID as needed for pain MUST LAST 30 DAYS 06/19/2017 07/18/2017 Inactive (Response to an electronic controlled substance refill request - RxReferenceNumber: [id number]) hydrocodone 10 mg-acetaminophen 325 mg tablet RxNorm: 461853 1-2 Tablet(s) QID as needed for pain MUST LAST 30 DAYS 06/19/2017 06/18/2017 Inactive (Response to an electronic controlled substance refill request - RxReferenceNumber: [id number]) baclofen 20 mg tablet RxNorm: 045968 1 Tablet(s) PO TID as needed for muscle spasm 06/18/2017 08/20/2017 Inactive Medrol (Dustin) 4 mg tablets in a dose pack RxNorm: 448098 Tablet(s) PO As Directed 06/05/2017 07/18/2017 Inactive omeprazole 40 mg capsule,delayed release RxNorm: 457421 1 Capsu le(s) PO QD 04/20/2017 10/16/2017 Inactive Premarin 1.25 mg tablet RxNorm: 891761 1-2 Tablet(s) PO QD 04/11/20 17 05/15/2018 Inactive duloxetine 60 mg capsule,delayed release RxNorm: 812535 1 Capsu le(s) PO QD 04/11/2017 09/19/2017 Inactive furosemide 40 mg tablet RxNorm: 999131 1 Tablet(s) PO Q AM prn edema--take with potassium 04/11/2017 12/11/2017 Inactive Klor-Con 8 mEq tablet,extended release RxNorm: 919121 1 Tablet( s) PO BID 04/11/2017 01/14/2018 Inactive Lipitor 10 mg tablet RxNorm: 011792 1 Tablet(s) PO QHS 04/11/201702/2018 Inactive amlodipine 5 mg-benazepril 20 mg capsule RxNorm: 515634 1 Capsu le(s) PO QD 04/11/2017 01/29/2018 Inactive allopurinol 300 mg tablet RxNorm: 687537 1 Tablet(s) PO QD 04/11/20 17 01/14/2018 Inactive clonidine HCl 0.1 mg tablet RxNorm: 668016 1 Tablet(s) PO QID 04/0508/19/2017 Inactive baclofen 20 mg tablet RxNorm: 695392 1 Tablet(s) PO TID as needed for muscle spasm 04/02/2017 06/18/2017 Inactive Premarin 1.25 mg tablet RxNorm: 040825 1-2 Tablet(s) PO QD 03/20/20 17 04/10/2017 Inactive hydrocodone 10 mg-acetaminophen 325 mg tablet RxNorm: 202467 1-2 Tablet(s) QID as needed for pain MUST LAST 30 DAYS 03/14/2017 01/21/2019 Inactive (Response to an electronic controlled substance refill request - RxReferenceNumber: [id number]) metoprolol tartrate 100 mg tablet RxNorm: 566777 1 Tablet(s) PO BID 02/12/2017 08/20/2017 Inactive hydrocodone 10 mg-acetaminophen 325 mg tablet RxNorm: 352491 1-2 Tablet(s) QID as needed for pain MUST LAST 30 DAYS 02/08/2017 03/09/2017 Inactive (Response to an electronic controlled substance refill request - RxReferenceNumber: [id number]) metoprolol tartrate 100 mg tablet RxNorm: 354603 TAKE O NE TABLET BY MOUTH TWICE A DAY 01/11/2017 02/12/2017 Inactive metoprolol tartrate 100 mg tablet RxNorm: 234058 1 Tablet(s) PO BID 12/18/2016 12/17/2016 Inactive metoprolol tartrate 100 mg tablet RxNorm: 795427 1 Tablet(s) PO BID 12/18/2016 01/10/2017 Inactive furosemide 40 mg tablet RxNorm: 658941 1 Tablet(s) PO Q AM prn edema--take with potassium 12/13/2016 02/10/2017 Inactive amitriptyline 100 mg tablet RxNorm: 201578 1 Tablet(s) PO QHS 11/2812/12/2016 Inactive baclofen 20 mg tablet RxNorm: 212713 1 Tablet(s) PO TID as needed for muscle spasm 11/14/2016 04/01/2017 Inactive triamterene 75 mg-hydrochlorothiazide 50 mg tablet RxNorm: 3 98484 1 Tablet(s) PO QD 11/14/2016 11/13/2016 Inactive metolazone 2.5 mg tablet RxNorm: 223956 TAKE ONE TABLET BY MOUTH DAILY NEEDED FOR EDEMA 11/14/2016 12/12/2016 Inactive triamterene 75 mg-hydrochlorothiazide 50 mg tablet RxNorm: 3 61422 1 Tablet(s) PO QD 11/14/2016 07/18/2017 Inactive amitriptyline 50 mg tablet RxNorm: 298913 TAKE ONE TABL ET BY MOUTH AT BEDTIME NEEDED FOR SLEEP 11/14/2016 11/27/2016 Inactive Cymbalta 60 mg capsule,delayed release RxNorm: 102896 1 Capsule (s) PO QHS 11/14/2016 12/12/2016 Inactive clonidine HCl 0.1 mg tablet RxNorm: 012750 1 Tablet(s) PO QID 11/1304/04/2017 Inactive amitriptyline 50 mg tablet RxNorm: 911627 1 Tablet(s) P O QHS as needed for sleep 11/01/2016 11/27/2016 Inactive duloxetine 60 mg capsule,delayed release RxNorm: 866080 TAKE ONE CAPSULE BY MOUTH DAILY 10/20/2016 01/17/2017 Inactive allopurinol 300 mg tablet RxNorm: 282411 TAKE ONE TABLET BY LOPEZ TH DAILY 10/20/2016 01/16/2017 Inactive Lyrica 75 mg capsule RxNorm: 841040 TAKE ONE CAPSULE BY MOUTH EVERY NIGHT AT BEDTIME 10/20/2016 12/10/2016 Inactive Klor-Con 8 mEq tablet,extended release RxNorm: 715518 T FARRUKH ONE TABLET BY MOUTH TWICE A DAY 10/20/2016 01/17/2017 Inactive Celebrex 200 mg capsule RxNorm: 656125 TAKE ONE CAPSULE BY MOUT H TWICE A DAY 10/20/2016 07/18/2017 Inactive Bystolic 10 mg tablet RxNorm: 069828 TAKE ONE TABLET BY MOUTH EVERY NIGHT AT BEDTIME 10/20/2016 12/17/2016 Inactive amlodipine 5 mg-benazepril 20 mg capsule RxNorm: 817700 TAKE ONE CAPSULE BY MOUTH EVERY NIGHT AT BEDTIME -- TO REPLACE AMLODOPINE 10/20/20162016 Inactive Lipitor 10 mg tablet RxNorm: 627654 TAKE ONE TABLET BY MOUTH EVERY NIGHT AT BEDTIME 10/20/2016 01/17/2017 Inactive alprazolam 0.5 mg tablet RxNorm: 793208 3 Tablet(s) PO QHS as needed for sleep/anxiety 09/20/2016 10/31/2016 Inactive Tamiflu 75 mg capsule RxNorm: 801104 1 Capsule(s) PO QD 09/19/2016 Inactive Lyrica 75 mg capsule RxNorm: 354042 1 Capsule(s) PO QHS 09/19/2016 Inactive prednisone 20 mg tablet RxNorm: 788015 1 Tablet(s) PO QD 08/10/2016 1 10/17/2015 Inactive doxycycline hyclate 100 mg capsule RxNorm: 7090626 1 Capsule(s) PO BID 08/10/2016 08/19/2016 Inactive Medrol (Dustin) 4 mg tablets in a dose pack RxNorm: 586854 Tablet(s) PO As Directed 07/31/2016 08/22/2016 Inactive Singulair 10 mg tablet RxNorm: 281354 TAKE ONE TABLET BY MOUTH JOSÉ Y 07/27/2016 07/18/2017 Inactive hydrocodone 10 mg-acetaminophen 325 mg tablet RxNorm: 245443 1-2 Tablet(s) QID as needed for pain MUST LAST 30 DAYS 07/26/2016 08/24/2016 Inactive (Response to an electronic controlled substance refill request - RxReferenceNumber: [id number]) alprazolam 0.5 mg tablet RxNorm: 667972 3 Tablet(s) PO QHS as needed for anxiety or sleep 07/26/2016 09/20/2016 Inactive clindamycin 300 mg capsule RxNorm: 373928 1 Capsule(s) PO TID 07/2007/29/2016 Inactive Diflucan 100 mg tablet RxNorm: 406749 1 Tablet(s) PO QD 07/20/2016 Inactive Levaquin 500 mg tablet RxNorm: 423427 1 Tablet(s) PO QD 07/17/2016 Inactive Levaquin 500 mg tablet RxNorm: 064188 1 Tablet(s) PO QD 07/10/2016 Inactive Levaquin 500 mg tablet RxNorm: 382971 1 Tablet(s) PO QD 07/10/2016 Inactive mupirocin 2 % topical ointment RxNorm: 441655 TOP Apply topically to affected areas twice daily 07/06/2016 09/18/2016 Inactive Singulair 10 mg tablet RxNorm: 515038 TAKE ONE TABLET BY MOUTH JOSÉ Y 06/21/2016 01/21/2019 Inactive alprazolam 0.5 mg tablet RxNorm: 250879 TAKE THREE TABL ETS BY MOUTH AT BEDTIME NEEDED FOR SLEEP OR STRESS 05/22/2016 06/20/2016 Inactive triamterene 75 mg-hydrochlorothiazide 50 mg tablet RxNorm: 3 49609 1 Tablet(s) PO QD 04/26/2016 10/21/2016 Inactive Premarin 1.25 mg tablet RxNorm: 897670 1-2 Tablet(s) PO QD 04/26/20 16 03/20/2017 Inactive Klor-Con 8 mEq tablet,extended release RxNorm: 154479 1 Tablet( s) PO BID 04/26/2016 10/19/2016 Inactive Celebrex 200 mg capsule RxNorm: 975461 1 Capsule(s) PO BID TAKE ONE CAPSULE BY MOUTH EVERY DAY 04/26/2016 10/19/2016 Inactive Lipitor 10 mg tablet RxNorm: 044250 1 Tablet(s) PO QHS 04/26/201605/2017 Inactive allopurinol 300 mg tablet RxNorm: 310616 1 Tablet(s) PO QD TAKE ONE TABLET BY MOUTH EVERY DAY 04/26/2016 10/19/2016 Inactive amlodipine 5 mg-benazepril 20 mg capsule RxNorm: 602243 1 Capsule(s) PO QHS replaces amlodopine 04/26/2016 10/19/2016 Inactive duloxetine 60 mg capsule,delayed release RxNorm: 088304 1 Capsu le(s) PO QD 04/26/2016 10/19/2016 Inactive Bystolic 10 mg tablet RxNorm: 210464 1 Tablet(s) PO QHS 04/26/2016 Inactive Singulair 10 mg tablet RxNorm: 673144 1 Tablet(s) PO QD TAKE ONE TABLET BY MOUTH DAILY 04/26/2016 06/20/2016 Inactive clonidine HCl 0.1 mg tablet RxNorm: 121092 1 Tablet(s) PO QID 04/2610/22/2016 Inactive hydrocodone 10 mg-acetaminophen 325 mg tablet RxNorm: 588881 1-2 Tablet(s) QID as needed for pain TAKE ONE TO TWO TABLETS BY MOUTH FOUR TIMES A DAY . MUST LAST 30 DAYS 03/31/2016 04/29/2016 Inactive (Response to an electronic controlled substance refill request - RxReferenceNumber: [id number]) Klor-Con 8 mEq tablet,extended release RxNorm: 072392 T FARRUKH ONE TABLET BY MOUTH TWICE A DAY 03/24/2016 09/29/2019 Inactive prednisone 20 mg tablet RxNorm: 347008 1 Tablet(s) PO QD 03/09/2016 0 03/08/2016 Inactive prednisone 20 mg tablet RxNorm: 688596 1 Tablet(s) PO QD 03/09/2016 0 03/13/2016 Inactive alprazolam 0.5 mg tablet RxNorm: 306247 3 Tablet(s) PO QHS as needed for sleep/stress 03/02/2016 01/21/2019 Inactive mupirocin 2 % topical ointment RxNorm: 127390 TOP twice daily to affected areas of face and neck 02/21/2016 04/25/2016 Inactive clonidine HCl 0.1 mg tablet RxNorm: 084760 TAKE ONE TAB LET BY MOUTH FOUR TIMES A DAY 02/15/2016 09/29/2019 Inactive clonidine HCl 0.1 mg tablet RxNorm: 385538 1 Tablet(s) PO QID 02/1404/25/2016 Inactive Premarin 1.25 mg tablet RxNorm: 467919 1-2 Tablet(s) PO QD 02/15/20 16 03/15/2016 Inactive Klor-Con 8 mEq tablet,extended release RxNorm: 203949 T FARRUKH ONE TABLET BY MOUTH TWICE A DAY 02/15/2016 03/15/2016 Inactive potassium chloride ER 20 mEq tablet,extended release(part/cr yst) RxNorm: 212053 2 Tablet(s) PO BID 02/15/2016 03/15/2016 Inactive Macrobid 100 mg capsule RxNorm: 496667 1 Capsule(s) PO BID 01/24/20 16 01/30/2016 Inactive prednisone 20 mg tablet RxNorm: 553268 Take 3tabs PO QD x 2 days, then 2 tabs PO QD x 2 days, then 1 tab PO QD x 2 days, then 1/2 tab PO QDy x 2 days 12/23/2015 04/25/2016 Inactive Klor-Con 8 mEq tablet,extended release RxNorm: 617126 T FARRUKH ONE TABLET BY MOUTH TWICE A DAY 12/20/2015 02/14/2016 Inactive alprazolam 1 mg tablet RxNorm: 856019 1 1/2 Tablet(s) PO QHS 201501/23/2016 Inactive nystatin 100,000 unit/gram topical cream RxNorm: 251372 APPLY TO AFFECTED AREA(S) TWO TIMES A DAY 11/30/2015 12/14/2015 Inactive Singulair 10 mg tablet RxNorm: 445754 TAKE ONE TABLET BY MOUTH JOSÉ Y 11/18/2015 04/25/2016 Inactive allopurinol 300 mg tablet RxNorm: 911664 1 Tablet(s) PO QD TAKE ONE TABLET BY MOUTH EVERY DAY 10/26/2015 04/22/2016 Inactive Singulair 10 mg tablet RxNorm: 024185 TAKE ONE TABLET BY MOUTH JOSÉ Y 10/26/2015 11/17/2015 Inactive duloxetine 60 mg capsule,delayed release RxNorm: 373256 1 Capsu le(s) PO QD 10/26/2015 04/22/2016 Inactive triamterene 75 mg-hydrochlorothiazide 50 mg tablet RxNorm: 3 12644 1 Tablet(s) PO QD 10/26/2015 11/14/2016 Inactive potassium chloride ER 20 mEq tablet,extended release(part/cr yst) RxNorm: 537904 2 Tablet(s) PO BID 10/26/2015 02/14/2016 Inactive Lipitor 10 mg tablet RxNorm: 440728 1 Tablet(s) PO QHS 10/26/2015 Inactive amlodipine 5 mg-benazepril 20 mg capsule RxNorm: 224267 1 Capsule(s) PO QHS replaces amlodopine 10/26/2015 04/22/2016 Inactive Bystolic 10 mg tablet RxNorm: 694462 1 Tablet(s) PO QHS 10/26/2015 Inactive amlodipine 5 mg-benazepril 20 mg capsule RxNorm: 373694 1 Capsule(s) PO QHS replaces amlodopine 10/06/2015 10/25/2015 Inactive amlodipine 5 mg tablet RxNorm: 239757 1 Tablet(s) PO QHS 09/30/2015 0 04/25/2016 Inactive metolazone 2.5 mg tablet RxNorm: 281783 TAKE ONE TABLET BY MOUTH DAILY NEEDED FOR EDEMA 09/30/2015 01/21/2019 Inactive duloxetine 60 mg capsule,delayed release RxNorm: 565358 1 Capsu le(s) PO QD 09/30/2015 10/25/2015 Inactive cephalexin 500 mg capsule RxNorm: 823687 1 Capsule(s) PO BID 201509/23/2015 Inactive mupirocin 2 % topical ointment RxNorm: 202741 TOP twice daily to affected areas of face and neck 09/14/2015 02/20/2016 Inactive baclofen 20 mg tablet RxNorm: 954318 1 Tablet(s) PO TID as needed for muscle spasm 09/01/2015 11/14/2016 Inactive clonidine HCl 0.1 mg tablet RxNorm: 461249 1 Tablet(s) PO QID 09/0102/14/2016 Inactive alprazolam 1 mg tablet RxNorm: 436683 1 1/2 Tablet(s) PO QHS 201409/09/2015 Inactive baclofen 20 mg tablet RxNorm: 195078 1 Tablet(s) PO TID as needed for muscle spasm 07/23/2015 09/01/2015 Inactive omeprazole 40 mg capsule,delayed release RxNorm: 580982 1 Capsu le(s) PO QD 07/23/2015 04/25/2016 Inactive alprazolam 1 mg tablet RxNorm: 039720 1 1/2 Tablet(s) PO QHS 201408/10/2015 Inactive Bystolic 10 mg tablet RxNorm: 210331 1 Tablet(s) PO BID 06/24/2015 Inactive allopurinol 300 mg tablet RxNorm: 130894 1 Tablet(s) PO QD TAKE ONE TABLET BY MOUTH EVERY DAY 06/23/2015 10/20/2015 Inactive alprazolam 1 mg tablet RxNorm: 186698 1 1/2 Tablet(s) PO QHS 201407/06/2015 Inactive clonidine HCl 0.1 mg tablet RxNorm: 529775 1 Tablet(s) PO QID 06/0209/01/2015 Inactive clonidine HCl 0.1 mg tablet RxNorm: 401502 1 Tablet(s) PO QID 06/0206/01/2015 Inactive Cymbalta 60 mg capsule,delayed release RxNorm: 736575 1 Capsule (s) PO QHS 06/02/2015 08/30/2015 Inactive Cymbalta 60 mg capsule,delayed release RxNorm: 504312 1 Capsule (s) PO QHS 06/02/2015 06/01/2015 Inactive clonidine HCl 0.1 mg tablet RxNorm: 022008 1 Tablet(s) PO TID 05/3106/01/2015 Inactive replaces 0.2mg dose metolazone 2.5 mg tablet RxNorm: 145712 TAKE ONE TABLET BY MOUTH DAILY NEEDED FOR EDEMA 05/21/2015 06/19/2015 Inactive Singulair 10 mg tablet RxNorm: 453738 TAKE ONE TABLET BY MOUTH JOSÉ Y 05/21/2015 10/17/2015 Inactive Cymbalta 30 mg capsule,delayed release RxNorm: 212332 1 Capsule (s) PO QHS 05/20/2015 11/14/2016 Inactive betamethasone valerate 0.1 % topical cream RxNorm: 572327 Appli cation TOP BID 05/10/2015 04/25/2016 Inactive Bactroban 2 % topical ointment RxNorm: 964907 Application TOP BID 0 05/10/2015 06/20/2015 Inactive baclofen 20 mg tablet RxNorm: 291528 1 Tablet(s) PO TID as needed 0 04/26/2015 07/23/2015 Inactive Lipitor 10 mg tablet RxNorm: 930057 1 Tablet(s) PO QHS 04/26/201508/2016 Inactive clonidine HCl 0.1 mg tablet RxNorm: 291880 1 Tablet(s) PO TID 04/2605/30/2015 Inactive replaces 0.2mg dose Klor-Con 8 mEq tablet,extended release RxNorm: 768129 1 Tablet( s) PO BID 04/26/2015 04/25/2016 Inactive metolazone 2.5 mg tablet RxNorm: 992355 1 Tablet(s) PO QD as ne eded for edema 04/26/2015 04/25/2015 Inactive triamterene 75 mg-hydrochlorothiazide 50 mg tablet RxNorm: 3 34297 1 Tablet(s) PO QD 04/26/2015 10/22/2015 Inactive Premarin 1.25 mg tablet RxNorm: 275091 1-2 Tablet(s) PO QD 04/26/2010/22/2015 Inactive Bystolic 10 mg tablet RxNorm: 440331 1 Tablet(s) PO QAM TAKE ONE TABLET BY MOUTH EVERY MORNING 04/23/2015 06/23/2015 Inactive clonidine HCl 0.1 mg tablet RxNorm: 197595 1 Tablet(s) PO TID 03/2304/25/2015 Inactive replaces 0.2mg dose nystatin 100,000 unit/gram topical cream RxNorm: 865211 Applica tion TOP BID 03/23/2015 06/20/2015 Inactive baclofen 20 mg tablet RxNorm: 026227 1 Tablet(s) PO TID as needed 0 03/23/2015 04/25/2015 Inactive Premarin 1.25 mg tablet RxNorm: 404217 1-2 Tablet(s) PO QD 03/23/2004/25/2015 Inactive Klor-Con 8 mEq tablet,extended release RxNorm: 105834 1 Tablet( s) PO BID 03/23/2015 04/25/2015 Inactive cefdinir 300 mg capsule RxNorm: 253436 2 Capsule(s) PO QD 03/16/2015 03/25/2015 Inactive baclofen 20 mg tablet RxNorm: 118900 1 Tablet(s) PO TID as needed 0 03/02/2015 03/22/2015 Inactive allopurinol 300 mg tablet RxNorm: 770706 1 Tablet(s) PO QD TAKE ONE TABLET BY MOUTH EVERY DAY 02/22/2015 05/22/2015 Inactive Klor-Con M20 mEq tablet,extended release RxNorm: 578238 2 Tablet(s) PO BID to use with lasix 02/22/2015 06/20/2015 Inactive clonidine HCl 0.1 mg tablet RxNorm: 274149 1 Tablet(s) PO TID 02/1903/22/2015 Inactive replaces 0.2mg dose Lipitor 10 mg tablet RxNorm: 001797 1 Tablet(s) PO QHS 01/20/201506/2015 Inactive Lipitor 10 mg tablet RxNorm: 130873 1 Tablet(s) PO QHS 01/20/2015 Inactive Singulair 10 mg tablet RxNorm: 264113 1 Tablet(s) PO QD TAKE ONE TABLET BY MOUTH EVERY DAY 11/20/2014 05/18/2015 Inactive Lipitor 10 mg tablet RxNorm: 528411 1 Tablet(s) PO QHS 11/20/201408/2015 Inactive allopurinol 300 mg tablet RxNorm: 309619 1 Tablet(s) PO QD TAKE ONE TABLET BY MOUTH EVERY DAY 11/20/2014 02/16/2015 Inactive Bystolic 10 mg tablet RxNorm: 992449 1 Tablet(s) PO QAM TAKE ONE TABLET BY MOUTH EVERY MORNING 11/20/2014 04/22/2015 Inactive Klor-Con 8 mEq tablet,extended release RxNorm: 614831 1 Tablet( s) PO BID 11/20/2014 02/17/2015 Inactive baclofen 20 mg tablet RxNorm: 290893 1 Tablet(s) PO TID as needed 0 11/20/2014 01/21/2019 Inactive baclofen 20 mg tablet RxNorm: 788083 1 Tablet(s) PO TID as needed 0 10/27/2014 11/19/2014 Inactive baclofen 20 mg tablet RxNorm: 659558 1 Tablet(s) PO TID as needed 0 10/26/2014 03/01/2015 Inactive allopurinol 300 mg tablet RxNorm: 658998 1 Tablet(s) PO QD TAKE ONE TABLET BY MOUTH EVERY DAY 10/26/2014 11/20/2014 Inactive Bystolic 10 mg tablet RxNorm: 341851 1 Tablet(s) PO QAM TAKE ONE TABLET BY MOUTH EVERY MORNING 10/26/2014 11/20/2014 Inactive clonidine HCl 0.1 mg tablet RxNorm: 554075 1 Tablet(s) PO TID 09/2805/27/2019 Inactive replaces 0.2mg dose clonidine HCl 0.1 mg tablet RxNorm: 672571 1 Tablet(s) PO TID 09/2802/18/2015 Inactive replaces 0.2mg dose baclofen 20 mg tablet RxNorm: 397000 1 Tablet(s) PO TID as needed 1 11/01/2013 08/30/2014 Inactive Lipitor 10 mg tablet RxNorm: 955906 1 Tablet(s) PO QHS 08/31/2014 Inactive baclofen 20 mg tablet RxNorm: 821098 1 Tablet(s) PO TID as needed 1 11/01/2013 10/26/2014 Inactive triamterene 75 mg-hydrochlorothiazide 50 mg tablet RxNorm: 3 47967 1 Tablet(s) PO QD 08/31/2014 02/26/2015 Inactive Klor-Con 8 mEq tablet,extended release RxNorm: 711926 1 Tablet( s) PO BID 08/31/2014 11/20/2014 Inactive baclofen 20 mg tablet RxNorm: 779380 1 Tablet(s) PO TID as needed 1 09/30/2013 10/25/2014 Inactive baclofen 20 mg tablet RxNorm: 713896 1 Tablet(s) PO TID as needed 1 09/30/2013 08/31/2014 Inactive omeprazole 40 mg capsule,delayed release RxNorm: 201740 1 Capsu le(s) PO QD 07/21/2014 07/23/2015 Inactive Flonase 50 mcg/actuation nasal spray,suspension RxNorm: 8963 23 1 [place] NASAL BID 07/15/2014 04/09/2017 Inactive hydrocodone 10 mg-acetaminophen 325 mg tablet RxNorm: 825731 1-2 Tablet(s) QID as needed for pain TAKE ONE TO TWO TABLETS BY MOUTH FOUR TIMES A DAY . MUST LAST 30 DAYS 06/30/2014 07/27/2014 Inactive (Response to an electronic controlled substance refill request - RxReferenceNumber: [id number]) baclofen 20 mg tablet RxNorm: 197967 1 Tablet(s) PO TID as needed 1 07/31/2014 Inactive Singulair 10 mg tablet RxNorm: 962999 1 Tablet(s) PO QD TAKE ONE TABLET BY MOUTH EVERY DAY 05/25/2014 11/20/2014 Inactive Bystolic 10 mg tablet RxNorm: 938134 TAKE ONE TABLET BY MOUTH E VERY MORNING 05/25/2014 09/21/2014 Inactive allopurinol 300 mg tablet RxNorm: 902133 1 Tablet(s) PO QD TAKE ONE TABLET BY MOUTH EVERY DAY 05/25/2014 10/21/2014 Inactive baclofen 20 mg tablet RxNorm: 373347 1 Tablet(s) PO TID as needed 0 05/25/2014 06/29/2014 Inactive allopurinol 300 mg tablet RxNorm: 864198 TAKE ONE TABLET BY LOPEZ TH EVERY DAY 05/25/2014 09/21/2014 Inactive Singulair 10 mg tablet RxNorm: 258811 1 Tablet(s) PO QD TAKE ONE TABLET BY MOUTH EVERY DAY 05/25/2014 05/24/2014 Inactive Bystolic 10 mg tablet RxNorm: 649529 1 Tablet(s) PO QAM TAKE ONE TABLET BY MOUTH EVERY MORNING 05/25/2014 10/21/2014 Inactive metolazone 2.5 mg tablet RxNorm: 640199 1 Tablet(s) PO QD as ne eded for edema 05/18/2014 04/25/2015 Inactive Lasix 40 mg tablet RxNorm: 041904 1 Tablet(s) PO QAM s hould take potassium supplementation with this medication 05/14/2014 05/17/2014 Inactive hydrocodone 10 mg-acetaminophen 325 mg tablet RxNorm: 969346 1-2 Tablet(s) QID as needed for pain TAKE ONE TO TWO TABLETS BY MOUTH FOUR TIMES A DAY . MUST LAST 30 DAYS 05/07/2014 06/05/2014 Inactive (Response to an electronic controlled substance refill request - RxReferenceNumber: [id number]) alprazolam 0.5 mg tablet RxNorm: 290431 TAKE ONE TABLET BY MOUTH TWICE A DAY , MUST LAST 30 DAYS 05/07/2014 05/22/2016 Inactive (Response to a n electronic controlled substance refill request - RxReferenceNumber: [id number]) diclofenac sodium 75 mg tablet,delayed release RxNorm: 07190 6 1 Tablet(s) PO BID for pain 04/24/2014 07/20/2014 Inactive Celebrex 200 mg capsule RxNorm: 527087 TAKE ONE CAPSULE BY MOUT H EVERY DAY 04/24/2014 07/20/2014 Inactive alprazolam 0.5 mg tablet RxNorm: 239046 TAKE ONE TABLET BY MOUTH TWICE A DAY , MUST LAST 30 DAYS 03/24/2014 04/22/2014 Inactive (Response to a n electronic controlled substance refill request - RxReferenceNumber: [id number]) diclofenac sodium 75 mg tablet,delayed release RxNorm: 43796 6 1 Tablet(s) PO BID for pain 03/24/2014 04/24/2014 Inactive clonidine HCl 0.1 mg tablet RxNorm: 399168 1 Tablet(s) PO TID 03/2409/28/2014 Inactive replaces 0.2mg dose Klor-Con 8 mEq tablet,extended release RxNorm: 876695 1 Tablet( s) PO BID 02/26/2014 08/31/2014 Inactive diclofenac sodium 75 mg tablet,delayed release RxNorm: 72852 6 1 Tablet(s) PO BID for pain 02/25/2014 03/24/2014 Inactive hydrocodone 10 mg-acetaminophen 325 mg tablet RxNorm: 463561 1-2 Tablet(s) QID as needed for pain TAKE ONE TO TWO TABLETS BY MOUTH FOUR TIMES A DAY . MUST LAST 30 DAYS 02/25/2014 03/26/2014 Inactive (Response to an electronic controlled substance refill request - RxReferenceNumber: [id number]) alprazolam 0.5 mg tablet RxNorm: 665392 Tablet(s) PO BI D as needed for anxiety TAKE ONE TABLET BY MOUTH TWICE A DAY , MUST LAST 30 DAYS 02/25/2014 Inactive (Response to an electronic controlled [place] bstance refill request - RxReferenceNumber: [id number]) [AttnRPh: Saving apply/adjudicate RxGRP:SG20 RxBIN:[id number] RxPCN: ID#:[id number]] alprazolam 0.5 mg tablet RxNorm: 284702 Tablet(s) TAKE ONE TABLET BY MOUTH TWICE A DAY , MUST LAST 30 DAYS 01/27/2014 02/24/2014 Inactive (Respo nse to an electronic controlled substance refill request - RxReferenceNumber: [id number]) [AttnRPh: Saving apply/adjudicate RxGRP:SG20 RxBIN:[id number] RxPCN: ID#:[id number]] hydrocodone 10 mg-acetaminophen 325 mg tablet RxNorm: 265481 1-2 Tablet(s) QID as needed for pain TAKE ONE TO TWO TABLETS BY MOUTH FOUR TIMES A DAY . MUST LAST 30 DAYS 01/27/2014 02/24/2014 Inactive (Response to an electronic controlled substance refill request - RxReferenceNumber: [id number]) alprazolam 0.5 mg tablet RxNorm: 947774 TAKE ONE TABLET BY MOUTH TWICE A DAY , MUST LAST 30 DAYS 01/27/2014 01/26/2014 Inactive (Response to a n electronic controlled substance refill request - RxReferenceNumber: [id number]) Premarin 1.25 mg tablet RxNorm: 335614 1-2 Tablet(s) PO QD 01/28/20 14 07/25/2014 Inactive alprazolam 0.5 mg tablet RxNorm: 170147 TAKE ONE TABLET BY MOUTH TWICE A DAY , MUST LAST 30 DAYS 01/27/2014 01/27/2014 Inactive (Response to a n electronic controlled substance refill request - RxReferenceNumber: [id number]) hydrocodone 10 mg-acetaminophen 325 mg tablet RxNorm: 259552 TAKE ONE TO TWO TABLETS BY MOUTH FOUR TIMES A DAY . MUST LAST 30 DAYS 01/27/20142013 Inactive (Response to an electronic controlled [place] bstance refill request - RxReferenceNumber: [id number]) Celebrex 200 mg capsule RxNorm: 468206 1 Capsule(s) PO QD TAKE ONE CAPSULE BY MOUTH EVERY DAY 12/29/2013 04/27/2014 Inactive hydrocodone 10 mg-acetaminophen 325 mg tablet RxNorm: 084575 1-2 Tablet(s) PO QID as needed for severe pain 12/29/2013 01/27/2014 Inactive allopurinol 300 mg tablet RxNorm: 534458 1 Tablet(s) PO QD TAKE ONE TABLET BY MOUTH EVERY DAY 12/29/2013 05/24/2014 Inactive alprazolam 0.5 mg tablet RxNorm: 609366 TAKE ONE TABLET BY MOUTH TWICE A DAY , MUST LAST 30 DAYS 12/29/2013 01/27/2014 Inactive (Response to a n electronic controlled substance refill request - RxReferenceNumber: [id number]) Celebrex 200 mg capsule RxNorm: 310640 1 Capsule(s) PO QD TAKE ONE CAPSULE BY MOUTH EVERY DAY 12/29/2013 12/29/2013 Inactive Bystolic 10 mg tablet RxNorm: 139481 1 Tablet(s) PO QAM TAKE ONE TABLET BY MOUTH EVERY MORNING 12/29/2013 05/24/2014 Inactive Bystolic 10 mg tablet RxNorm: 868558 1 Tablet(s) PO QAM TAKE ONE TABLET BY MOUTH EVERY MORNING 12/29/2013 12/29/2013 Inactive Singulair 10 mg tablet RxNorm: 595246 1 Tablet(s) PO QD TAKE ONE TABLET BY MOUTH EVERY DAY 12/29/2013 05/25/2014 Inactive hydrocodone 10 mg-acetaminophen 325 mg tablet RxNorm: 064423 TAKE ONE TO TWO TABLETS BY MOUTH FOUR TIMES A DAY . MUST LAST 30 DAYS 12/29/20132013 Inactive (Response to an electronic controlled [place] bstance refill request - RxReferenceNumber: [id number]) Trazadone 75mg Tablet RxNorm: 1 Tablet(s) PO QHS as needed 03/23/2014 Inactive Trazadone 75mg Tablet RxNorm: 1 Tablet(s) PO QHS 12/24/20132014 Inactive Soma 350 mg tablet RxNorm: 055723 Tablet(s) PO TAKE ON E TABLET BY MOUTH THREE TIMES A DAY NEEDED FOR MUSCLE SPASMS. THIS MUST LAST 30 DAYS BETWEEN REFILLS. 12/10/2013 12/22/2013 Inactive (Appended: Cont rolled substance eRx refill - RxReferenceNumber: [id number]) diclofenac sodium 75 mg tablet,delayed release RxNorm: 20141 6 1 Tablet(s) PO BID for pain 12/10/2013 02/24/2014 Inactive allopurinol 300 mg tablet RxNorm: 247694 1 Tablet(s) PO QD 11/20/19 14 12/29/2013 Inactive alprazolam 0.5 mg tablet RxNorm: 564387 2 Tablet(s) PO BID 11/13/19 14 12/29/2013 Inactive prn clonidine 0.1 mg tablet RxNorm: 421452 1 Tablet(s) PO TID 11/12/2013 02/09/2014 Inactive replaces 0.2mg dose Klor-Con M20 mEq tablet,extended release RxNorm: 993867 2 Tablet(s) PO BID to use with lasix 11/12/2013 05/10/2014 Inactive Singulair 10 mg tablet RxNorm: 323596 1 Tablet(s) PO QD 11/12/2013 Inactive hydrocodone 10 mg-acetaminophen 325 mg tablet RxNorm: 380093 1-2 Tablet(s) PO QID as needed for severe pain 11/12/2013 12/28/2013 Inactive Bystolic 10 mg tablet RxNorm: 689520 1 Tablet(s) PO QAM 11/12/2013 Inactive Soma 350 mg tablet RxNorm: 740617 Tablet(s) PO TAKE ON E TABLET BY MOUTH THREE TIMES A DAY NEEDED FOR MUSCLE SPASMS. THIS MUST LAST 30 DAYS BETWEEN REFILLS. 10/13/2013 12/10/2013 Inactive (Appended: Cont rolled substance eRx refill - RxReferenceNumber: [id number]) hydrocodone 10 mg-acetaminophen 325 mg tablet RxNorm: 390887 1-2 Tablet(s) PO QID as needed for severe pain 10/03/2013 11/11/2013 Inactive diclofenac sodium 75 mg tablet,delayed release RxNorm: 70356 8 1 Tablet(s) PO BID for pain 09/11/2013 12/10/2013 Inactive alprazolam 0.5 mg tablet RxNorm: 211528 1 Tablet(s) PO BID May refill on 04/26/13 09/01/2013 10/30/2013 Inactive prn hydrocodone 10 mg-acetaminophen 325 mg tablet RxNorm: 613707 1-2 Tablet(s) PO QID as needed for severe pain 09/01/2013 10/02/2013 Inactive triamterene 75 mg-hydrochlorothiazide 50 mg tablet RxNorm: 3 82363 1 Tablet(s) PO QD 08/04/2013 08/31/2014 Inactive cyclobenzaprine 10 mg tablet RxNorm: 208681 1 Tablet(s) PO TID prn spasm 08/04/2013 08/13/2013 Inactive clonidine 0.1 mg tablet RxNorm: 762651 1 Tablet(s) PO TID 08/04/2013 11/11/2013 Inactive replaces 0.2mg dose cyclobenzaprine 10 mg tablet RxNorm: 469627 1 Tablet(s) PO TID prn spasm 07/23/2013 08/01/2013 Inactive hydrocodone 10 mg-acetaminophen 325 mg tablet RxNorm: 041252 2 1-2 Tablet(s) PO QID as needed for severe pain 06/09/2013 08/07/2013 Inactive Singulair 10 mg tablet RxNorm: 787964 1 Tablet(s) PO QD 05/29/2013 Inactive Klor-Con 8 mEq tablet,extended release RxNorm: 780698 1 Tablet( s) PO BID 05/29/2013 02/26/2014 Inactive allopurinol 300 mg tablet RxNorm: 791893 1 Tablet(s) PO QD 05/29/20 13 11/19/2013 Inactive Bystolic 10 mg tablet RxNorm: 342005 1 Tablet(s) PO QAM take one daily in the morning. 05/29/2013 11/11/2013 Inactive scopolamine 1.5 mg 72 hr Transderm Patch RxNorm: 923789 Application TD Q72H for motion sickness 05/26/2013 07/22/2013 Inactive Soma 350 mg tablet RxNorm: 036660 1 Tablet(s) PO TID as needed for spasm 05/19/2013 10/13/2013 Inactive diclofenac sodium 75 mg tablet,delayed release RxNorm: 49805 8 1 Tablet(s) PO BID for pain 05/14/2013 07/22/2013 Inactive allopurinol 300 mg tablet RxNorm: 717189 1 Tablet(s) PO QD 04/25/2005/28/2013 Inactive alprazolam 0.5 mg tablet RxNorm: 095774 1 Tablet(s) PO BID May refill on 04/26/13 04/25/2013 06/23/2013 Inactive prn Celebrex 200 mg capsule RxNorm: 672457 1 Capsule(s) PO QD 04/16/2013 12/29/2013 Inactive alprazolam 0.5 mg tablet RxNorm: 006547 1 Tablet(s) PO BID May refill on 04/26/13 04/16/2013 04/24/2013 Inactive prn Soma 350 mg tablet RxNorm: 053469 1 Tablet(s) PO TID as needed for spasm 04/16/2013 No Stop Date Active Lasix 40 mg tablet RxNorm: 020912 1 Tablet(s) PO RAZA ramirez take potassium supplementation with this medication 04/16/2013 06/14/2013 Inactive clonidine 0.1 mg tablet RxNorm: 583586 1 Tablet(s) PO TID 04/16/2013 08/03/2013 Inactive replaces 0.2mg dose prednisone 20 mg tablet RxNorm: 528772 1 Tablet(s) PO BID 04/16/2013 04/20/2013 Inactive diclofenac sodium 75 mg tablet,delayed release RxNorm: 44620 8 1 Tablet(s) PO BID for pain 04/14/2013 05/13/2013 Inactive hydrocodone 10 mg-acetaminophen 325 mg tablet RxNorm: 920561 2 1-2 Tablet(s) PO QID as needed for severe pain 04/14/2013 No Stop Date Active Lasix 40 mg tablet RxNorm: 603193 1 Tablet(s) PO RAZA ramirez take potassium supplementation with this medication 03/31/2013 04/15/2013 Inactive Celebrex 200 mg capsule RxNorm: 137457 1 Capsule(s) PO QD 03/31/2013 04/15/2013 Inactive alprazolam 0.5 mg tablet RxNorm: 138112 1 Tablet(s) PO BID 03/28/2004/15/2013 Inactive prn hydrocodone 10 mg-acetaminophen 325 mg tablet RxNorm: 512713 2 1-2 Tablet(s) PO QID as needed for severe pain 03/10/2013 No Stop Date Active metformin ER 500 mg 24 hr tablet,extended release RxNorm: 86 1018 1 Tablet(s) PO QD 03/06/2013 07/22/2013 Inactive clindamycin 300 mg capsule RxNorm: 667667 2 Capsule(s) PO TID 03/0503/14/2013 Inactive Zaroxolyn 2.5 mg tablet RxNorm: 893332 1 Tablet(s) PO QAM 03/05/2013 05/19/2015 Inactive amlodipine 10 mg tablet RxNorm: 291107 1 Tablet(s) PO QD 03/03/2013 0 05/25/2013 Inactive Norvasc 10 mg tablet RxNorm: 005468 1 Tablet(s) PO QD 02/28/201307/11 Inactive Celebrex 200 mg capsule RxNorm: 789208 1 Capsule(s) PO QD 02/28/2013 03/30/2013 Inactive diclofenac sodium 75 mg tablet,delayed release RxNorm: 56332 8 1 Tablet(s) PO BID for pain 02/14/2013 03/15/2013 Inactive Soma 350 mg tablet RxNorm: 433864 1 Tablet(s) PO TID as needed for spasm 02/14/2013 No Stop Date Active hydrocodone 10 mg-acetaminophen 325 mg tablet RxNorm: 595368 2 1-2 Tablet(s) PO QID as needed for severe pain 02/14/2013 No Stop Date Active Norvasc 10 mg tablet RxNorm: 487846 1 Tablet(s) PO QD 02/10/201302/09 Inactive Celebrex 200 mg capsule RxNorm: 770546 1 Capsule(s) PO QD 01/27/2013 01/26/2013 Inactive Premarin 1.25 mg tablet RxNorm: 361598 1-2 Tablet(s) PO QD 01/28/20 13 06/25/2013 Inactive alprazolam 0.5 mg tablet RxNorm: 051570 1 Tablet(s) PO BID 01/28/20 13 02/25/2013 Inactive prn amlodipine 5 mg tablet RxNorm: 480459 1 Tablet(s) PO QD 01/27/2013 Inactive Celebrex 200 mg capsule RxNorm: 794245 1 Capsule(s) PO QD 01/27/2013 02/27/2013 Inactive gabapentin 600 mg tablet RxNorm: 598561 1 Tablet(s) PO QHS 01/16/20 13 07/22/2013 Inactive Soma 350 mg tablet RxNorm: 968605 1 Tablet(s) PO TID as needed for spasm 01/15/2013 No Stop Date Active hydrocodone 10 mg-acetaminophen 325 mg tablet RxNorm: 744926 2 1-2 Tablet(s) PO QID as needed for severe pain 01/15/2013 No Stop Date Active Soma 350 mg tablet RxNorm: 565986 1 Tablet(s) PO TID as needed for spasm 01/13/2013 No Stop Date Active alprazolam 0.5 mg tablet RxNorm: 490472 1 Tablet(s) PO BID 12/31/19 13 01/26/2013 Inactive prn diclofenac sodium 75 mg tablet,delayed release RxNorm: 68823 8 1 Tablet(s) PO BID for pain 12/09/2012 01/07/2013 Inactive gabapentin 600 mg tablet RxNorm: 371415 1 Tablet(s) PO QHS 12/10/19 13 01/07/2013 Inactive hydrocodone 10 mg-acetaminophen 325 mg tablet RxNorm: 395388 2 1-2 Tablet(s) PO QID as needed for severe pain 12/02/2012 No Stop Date Active Levaquin 750 mg tablet RxNorm: 685218 1 Tablet(s) PO QD 11/21/2012 Inactive Singulair 10 mg tablet RxNorm: 311376 1 Tablet(s) PO QD 11/11/2012 Inactive clonidine 0.2 mg tablet RxNorm: 539200 1 Tablet(s) PO TID 11/11/2012 04/15/2013 Inactive alprazolam 0.5 mg tablet RxNorm: 271507 1 Tablet(s) PO BID 11/12/19 13 12/10/2012 Inactive prn Klor-Con 8 mEq tablet,extended release RxNorm: 130463 1 Tablet( s) PO BID 11/11/2012 03/04/2013 Inactive hydrocodone 10 mg-acetaminophen 325 mg tablet RxNorm: 057862 2 1-2 Tablet(s) PO QID as needed for severe pain 11/06/2012 No Stop Date Active alprazolam 0.5 mg tablet RxNorm: 457190 1 Tablet(s) PO BID 10/15/19 13 11/10/2012 Inactive prn hydrocodone-acetaminophen 10 mg-325 mg tablet RxNorm: 824184 2 1-2 Tablet(s) PO QID as needed for severe pain 10/10/2012 10/09/2012 Inactive allopurinol 300 mg tablet RxNorm: 621979 1 Tablet(s) PO QD 09/20/19 13 12/18/2012 Inactive alprazolam 0.5 mg tablet RxNorm: 000806 1 Tablet(s) PO BID 09/17/19 13 10/14/2012 Inactive prn hydrocodone-acetaminophen 10 mg-325 mg tablet RxNorm: 199768 2 1-2 Tablet(s) PO QID as needed for severe pain 08/22/2012 08/21/2012 Inactive Norvasc 10 mg tablet RxNorm: 163069 1 Tablet(s) PO QD 08/12/201201/10 Inactive Premarin 1.25 mg tablet RxNorm: 674956 1-2 Tablet(s) PO QD 07/30/20 12 12/26/2012 Inactive alprazolam 0.5 mg tablet RxNorm: 167933 1 Tablet(s) PO BID 07/29/20 12 08/27/2012 Inactive prn Klor-Con 8 mEq tablet,extended release RxNorm: 630467 1 Tablet( s) PO BID 07/29/2012 11/10/2012 Inactive hydrocodone-acetaminophen 10 mg-325 mg tablet RxNorm: 279313 2 1-2 Tablet(s) PO QID as needed for severe pain 07/29/2012 No Stop Date Active Premarin 1.25 mg tablet RxNorm: 501487 1-2 Tablet(s) PO QD 07/29/20 12 07/29/2012 Inactive clonidine 0.2 mg tablet RxNorm: 043122 1 Tablet(s) PO TID 07/29/2012 10/28/2012 Inactive ketorolac 10 mg tablet RxNorm: 920976 1 Tablet(s) PO QID prn he adache 07/18/2012 No Stop Date Active hydrocodone-acetaminophen 10 mg-325 mg tablet RxNorm: 088624 2 1-2 Tablet(s) PO QID as needed for severe pain 07/03/2012 No Stop Date Active amlodipine 5 mg tablet RxNorm: 410297 1 Tablet(s) PO QD 07/02/2012 Inactive allopurinol 300 mg tablet RxNorm: 195934 1 Tablet(s) PO QD 07/02/20 12 09/19/2012 Inactive Celebrex 200 mg capsule RxNorm: 835415 1 Capsule(s) PO QD for j oint pain 06/26/2012 10/23/2012 Inactive diclofenac sodium 75 mg tablet,delayed release RxNorm: 03479 8 1 Tablet(s) PO BID for pain 06/19/2012 09/16/2012 Inactive hydrocodone-acetaminophen 10 mg-325 mg tablet RxNorm: 258547 2 1-2 Tablet(s) PO QID as needed for severe pain 06/10/2012 No Stop Date Active alprazolam 0.5 mg tablet RxNorm: 935706 1 Tablet(s) PO BID 06/03/20 12 07/02/2012 Inactive prn ketorolac 10 mg tablet RxNorm: 713576 1 Tablet(s) PO Q8H 05/27/2012 0 01/21/2019 Inactive as needed for headache hydrocodone-acetaminophen 10 mg-325 mg tablet RxNorm: 966632 2 1-2 Tablet(s) PO QID as needed for severe pain 05/15/2012 No Stop Date Active allopurinol 300 mg tablet RxNorm: 874360 1 Tablet(s) PO QD 05/14/20 12 06/12/2012 Inactive allopurinol 300 mg tablet RxNorm: 239570 1 Tablet(s) PO QD 05/14/20 12 05/13/2012 Inactive amlodipine 5 mg tablet RxNorm: 242037 1 Tablet(s) PO QD 05/01/2012 Inactive amlodipine 5 mg Tab RxNorm: 537318 1 Tablet(s) PO QD 05/01/201204/30 Inactive Celebrex 200 mg capsule RxNorm: 874202 1 Capsule(s) PO QD for j oint pain 05/01/2012 06/25/2012 Inactive Singulair 10 mg tablet RxNorm: 126443 1 Tablet(s) PO QD 05/01/2012 Inactive alprazolam 0.5 mg tablet RxNorm: 200831 1 Tablet(s) PO BID 05/01/20 12 05/30/2012 Inactive prn Celebrex 200 mg Cap RxNorm: 795674 1 Capsule(s) PO QD for joint radu n 05/01/2012 04/30/2012 Inactive hydrocodone-acetaminophen 10 mg-325 mg tablet RxNorm: 372307 2 1-2 Tablet(s) PO QID as needed for severe pain 04/19/2012 No Stop Date Active Lasix 40 mg tablet RxNorm: 582916 1 Tablet(s) PO RAZA ramirez take potassium supplementation with this medication 04/05/2012 06/03/2012 Inactive alprazolam 0.5 mg Tab RxNorm: 803086 1 Tablet(s) PO BID 04/05/2012 Inactive prn hydrocodone-acetaminophen 10 mg-325 mg Tab RxNorm: 9093785 1-2 Tablet(s) PO QID as needed for severe pain 03/25/2012 03/24/2012 Inactive clonidine 0.2 mg Tab RxNorm: 189350 1 Tablet(s) PO TID 03/08/2012 Inactive alprazolam 0.5 mg Tab RxNorm: 050656 1 Tablet(s) PO BID 03/08/2012 Inactive prn Soma 350 mg tablet RxNorm: 426675 1 Tablet(s) PO TID for spasm 02/0903/18/2012 Inactive clonidine 0.2 mg tablet RxNorm: 337807 1 Tablet(s) PO TID 03/08/2012 07/28/2012 Inactive Celebrex 200 mg Cap RxNorm: 662100 1 Capsule(s) PO QD for joint radu n 03/01/2012 04/29/2012 Inactive amlodipine 5 mg Tab RxNorm: 570541 1 Tablet(s) PO QD 02/26/201202/24 Inactive amlodipine 5 mg Tab RxNorm: 086573 1 Tablet(s) PO QD 02/26/201204/25 Inactive Bactroban 2 % Ointment RxNorm: 752262 Application TOP QID to sores 02/23/2012 No Stop Date Active amlodipine 2.5 mg tablet RxNorm: 583220 1 Tablet(s) PO QHS 02/20/2002/25/2012 Inactive doxycycline hyclate 100 mg Cap RxNorm: 3505260 1 Capsule(s) PO BID 02/20/2012 02/29/2012 Inactive hydrocodone-acetaminophen 10 mg-325 mg Tab RxNorm: 6624271 1-2 T ablet(s) PO QID 02/08/2012 No Stop Date Active alprazolam 0.5 mg Tab RxNorm: 357915 1 Tablet(s) PO BID 02/08/2012 Inactive prn Singulair 10 mg Tab RxNorm: 640379 1 Tablet(s) PO QD 02/08/201204/30 Inactive Soma 350 mg Tab RxNorm: 239563 1 Tablet(s) PO TID for spasm 012 03/07/2012 Inactive Soma 350 mg Tab RxNorm: 085374 1 Tablet(s) PO TID for spasm 012 02/05/2012 Inactive diclofenac sodium 75 mg tablet,delayed release RxNorm: 18930 8 1 Tablet(s) PO BID for pain 02/01/2012 03/18/2012 Inactive Celebrex 200 mg Cap RxNorm: 116961 1 Capsule(s) PO QD for joint radu n 01/30/2012 02/28/2012 Inactive Lasix 40 mg Tab RxNorm: 569528 1 Tablet(s) PO QAM 01/24/2012 03/18/20 12 Inactive potassium chloride ER 20 mEq tablet,extended release(part/cr yst) RxNorm: 775228 2 Tablet(s) PO BID 01/24/2012 02/22/2012 Inactive alprazolam 0.5 mg Tab RxNorm: 404688 1 Tablet(s) PO BID 01/11/2012 Inactive prn hydrocodone-acetaminophen 10 mg-325 mg Tab RxNorm: 3226683 1-2 T ablet(s) PO QID 01/11/2012 No Stop Date Active Ambien 10 mg Tab RxNorm: 448499 1 Tablet(s) PO QHS 01/11/2012 012 Inactive Klor-Con 8 mEq Tab RxNorm: 631649 1 Tablet(s) PO BID 01/11/201201/22 Inactive diclofenac sodium 75 mg Tab, Delayed Release RxNorm: 395379 1 Tablet(s) PO BID for pain 01/10/2012 01/31/2012 Inactive Ambien 10 mg Tab RxNorm: 155952 1 Tablet(s) PO QHS 12/11/2011 012 Inactive alprazolam 0.5 mg Tab RxNorm: 960192 1 Tablet(s) PO BID 12/11/2011 Inactive prn hydrocodone 10 mg-acetaminophen 325 mg tablet RxNorm: 958151 1-2 Tablet(s) PO TID 11/28/2011 No Stop Date Active as needed for pa in - Previous quantity #240, will start dosing for #180 in April 2011 per Doctor Td. Ambien 10 mg Tab RxNorm: 649105 1 Tablet(s) PO QHS 11/09/2011 012 Inactive alprazolam 0.5 mg Tab RxNorm: 999917 1 Tablet(s) PO BID 11/09/2011 Inactive prn hydrocodone-acetaminophen 10 mg-325 mg Tab RxNorm: 3149431 1-2 T ablet(s) PO TID 11/06/2011 No Stop Date Active as needed for pain - Previous quantity #240, will start dosing for #180 in April 2011 per Doctor Td. Singulair 10 mg Tab RxNorm: 589024 1 Tablet(s) PO QD 10/13/201110/12 Inactive Singulair 10 mg Tab RxNorm: 431573 1 Tablet(s) PO QD 10/13/201102/06 Inactive hydrocodone-acetaminophen 10 mg-325 mg Tab RxNorm: 5753641 1-2 T ablet(s) PO TID 10/10/2011 10/09/2011 Inactive as needed for pain - Previous quantity #240, will start dosing for #180 in April 2011 per Doctor Td. hydrocodone-acetaminophen 10 mg-325 mg Tab RxNorm: 2393647 1-2 T ablet(s) PO TID 10/09/2011 No Stop Date Active as needed for pain - Previous quantity #240, will start dosing for #180 in April 2011 per Doctor Td. Klor-Con 8 mEq Tab RxNorm: 399576 1 Tablet(s) PO BID 10/02/201101/09 Inactive triamterene 75 mg-hydrochlorothiazide 50 mg tablet RxNorm: 3 05981 1 Tablet(s) PO QD 09/14/2011 03/06/2013 Inactive Ambien 10 mg Tab RxNorm: 783432 1 Tablet(s) PO QHS 09/14/2011 012 Inactive hydrocodone-acetaminophen 10 mg-325 mg Tab RxNorm: 8873426 1-2 T ablet(s) PO TID 09/14/2011 No Stop Date Active as needed for pain - Previous quantity #240, will start dosing for #180 in April 2011 per Doctor Td. alprazolam 0.5 mg Tab RxNorm: 266424 1 Tablet(s) PO BID 09/14/2011 Inactive prn Zithromax 500 mg Tab RxNorm: 3157448 1 Tablet(s) PO QD 09/13/201106/2012 Inactive prednisone 20 mg Tab RxNorm: 240841 1 Tablet(s) PO BID 08/31/2011 Inactive Ambien 10 mg Tab RxNorm: 473690 1 Tablet(s) PO QHS 08/17/2011 011 Inactive hydrocodone-acetaminophen 10 mg-325 mg Tab RxNorm: 2166806 1-2 T ablet(s) PO TID 08/17/2011 No Stop Date Active as needed for pain - Previous quantity #240, will start dosing for #180 in April 2011 per Doctor Td. clonidine 0.2 mg Tab RxNorm: 550970 1 Tablet(s) PO TID 08/17/201112/2011 Inactive Ambien 10 mg Tab RxNorm: 488370 1 Tablet(s) PO QHS 08/17/2011 019 Inactive alprazolam 0.5 mg Tab RxNorm: 595773 1 Tablet(s) PO BID 08/17/2011 Inactive prn hydrocodone-acetaminophen 10 mg-325 mg Tab RxNorm: 3943633 1-2 T ablet(s) PO TID 08/17/2011 08/16/2011 Inactive as needed for pain - Previous quantity #240, will start dosing for #180 in April 2011 per Doctor Td. Singulair 10 mg Tab RxNorm: 065718 1 Tablet(s) PO QD 08/17/201108/16 Inactive Klor-Con 8 mEq Tab RxNorm: 984847 1 Tablet(s) PO QD 08/17/20112011 Inactive alprazolam 0.5 mg Tab RxNorm: 867254 1 Tablet(s) PO BID 07/20/2011 Inactive prn Ambien 10 mg Tab RxNorm: 182032 1 Tablet(s) PO QHS 07/20/2011 012 Inactive Singulair 10 mg Tab RxNorm: 290865 1 Tablet(s) PO QD 07/20/201107/19 Inactive Premarin 1.25 mg tablet RxNorm: 839575 2 Tablet(s) PO QD 07/20/2011 0 01/21/2019 Inactive Premarin 1.25 mg tablet RxNorm: 137466 1-2 Tablet(s) PO QD 07/20/20 11 12/16/2011 Inactive Premarin 1.25 mg Tab RxNorm: 411231 1-2 Tablet(s) PO QD 07/06/2011 Inactive alprazolam 0.5 mg Tab RxNorm: 579922 1 Tablet(s) PO BID 06/22/2011 Inactive prn alprazolam 0.5 mg Tab RxNorm: 127105 1 Tablet(s) PO BID 06/22/2011 Inactive prn Premarin 1.25 mg Tab RxNorm: 405752 1 Tablet(s) PO QD m ay do 90 day fill if desired 06/22/2011 07/05/2011 Inactive hydrocodone-acetaminophen 10 mg-325 mg Tab RxNorm: 4224686 1-2 T ablet(s) PO TID 06/22/2011 No Stop Date Active as needed for pain - Previous quantity #240, will start dosing for #180 in April 2011 per Doctor Td. clonidine 0.2 mg Tab RxNorm: 526434 1 Tablet(s) PO TID 05/25/201103/2011 Inactive triamterene-hydrochlorothiazide 75 mg-50 mg Tab RxNorm: 3108 18 1 Tablet(s) PO QD 05/25/2011 09/13/2011 Inactive alprazolam 0.5 mg Tab RxNorm: 985101 1 Tablet(s) PO BID 05/25/2011 Inactive prn hydrocodone-acetaminophen 10 mg-325 mg Tab RxNorm: 8796352 1-2 T ablet(s) PO TID 05/25/2011 No Stop Date Active as needed for pain - Previous quantity #240, will start dosing for #180 in April 2011 per Doctor Td. Robaxin-750 750 mg Tab RxNorm: 647330 2 Tablet(s) PO QHS 05/22/2011 1 Inactive prn spasm hydrocodone-acetaminophen 10 mg-325 mg Tab RxNorm: 3424300 1-2 T ablet(s) PO TID 04/26/2011 No Stop Date Active as needed for pain - Previous quantity #240, will start dosing for #180 in April 2011 per Doctor Td. alprazolam 0.5 mg Tab RxNorm: 709484 1 Tablet(s) PO BID 04/25/2011 Inactive prn Klor-Con 8 mEq Tab RxNorm: 385872 1 Tablet(s) PO QD 03/30/20112010 Inactive Klor-Con 8 mEq Tab RxNorm: 312935 1 Tablet(s) PO QD 03/29/20112010 Inactive hydrocodone-acetaminophen 10 mg-325 mg Tab RxNorm: 4152574 1-2 T ablet(s) PO TID 03/20/2011 04/25/2011 Inactive as needed for pain - Previous quantity #240, will start dosing for #180 in April 2011 per Doctor Td. alprazolam 0.5 mg Tab RxNorm: 217220 1 Tablet(s) PO BID prn 011 03/30/2011 Inactive Ambien 10 mg Tab RxNorm: 658133 1 Tablet(s) PO QHS 03/01/2011 011 Inactive cyclobenzaprine 10 mg Tab RxNorm: 135064 1 Tablet(s) PO TID 011 03/18/2012 Inactive cyclobenzaprine 10 mg Tab RxNorm: 345955 1 Tablet(s) PO TID 011 01/08/2011 Inactive cyclobenzaprine 10 mg Tab RxNorm: 959964 1 Tablet(s) PO TID 011 12/20/2010 Inactive terbinafine 250 mg Tab RxNorm: 874124 1 Tablet(s) PO QD 12/12/2010 Inactive triamterene-hydrochlorothiazide 75 mg-50 mg Tab RxNorm: 3108 18 1 Tablet(s) PO QD 12/07/2010 06/04/2011 Inactive Klor-Con 8 8 mEq Tab RxNorm: 503890 1 Tablet(s) PO QD 12/07/201001/08 Inactive Premarin 1.25 mg Tab RxNorm: 244515 2 Tablet(s) PO QD 12/07/201001/08 Inactive clonidine 0.2 mg Tab RxNorm: 331960 1 Tablet(s) PO TID 12/07/2010 Inactive hydrocodone-acetaminophen 7.5 mg-650 mg Tab RxNorm: 511392 1 Ta blet(s) PO Q4H 12/05/2010 01/21/2019 Inactive hydrocodone-acetaminophen 7.5 mg-650 mg Tab RxNorm: 250710 1 Ta blet(s) PO Q4H 10/26/2010 11/14/2010 Inactive hydrocodone-acetaminophen 7.5 mg-650 mg Tab RxNorm: 058663 1 Ta blet(s) PO Q4H 10/13/2010 10/25/2010 Inactive hydrocodone-acetaminophen 7.5 mg-650 mg Tab RxNorm: 375900 1 Ta blet(s) PO Q4H 09/15/2010 09/12/2010 Inactive alprazolam 0.5 mg Tab RxNorm: 808813 1 Tablet(s) PO BID prn 011 09/12/2010 Inactive terbinafine 250 mg Tab RxNorm: 641189 1 Tablet(s) PO QD 09/05/2010 Inactive hydrocodone-acetaminophen 7.5 mg-650 mg Tab RxNorm: 930212 1 Ta blet(s) PO Q4H 08/29/2010 09/17/2010 Inactive alprazolam 0.5 mg Tab RxNorm: 731412 1 Tablet(s) PO BID prn 010 09/27/2010 Inactive alprazolam 0.5 mg Tab RxNorm: 269255 1 Tablet(s) PO BID prn 010 09/06/2010 Inactive Klor-Con 8 mEq Tab RxNorm: 337138 1 Tablet(s) PO QD 08/08/20102010 Inactive hydrocodone-acetaminophen 7.5 mg-650 mg Tab RxNorm: 559650 1 Ta blet(s) PO Q4H 08/08/2010 08/27/2010 Inactive Ambien 10 mg Tab RxNorm: 393823 1 Tablet(s) PO QHS 08/08/2010 Inactive clonidine 0.2 mg Tab RxNorm: 479653 1 Tablet(s) PO TID 08/08/2010 Inactive Premarin 1.25 mg Tab RxNorm: 058845 2 Tablet(s) PO QD 08/08/201009/12 Inactive Ambien 10 mg Tab RxNorm: 556683 1 Tablet(s) PO QHS 07/18/2010 Inactive alprazolam 0.5 mg Tab RxNorm: 409495 1 Tablet(s) PO BID prn 08/07/2010 Inactive hydrocodone-acetaminophen 7.5 mg-650 mg Tab RxNorm: 079998 1 Ta blet(s) PO Q4H 07/12/2010 07/31/2010 Inactive clonidine 0.2 mg Tab RxNorm: 499173 1 Tablet(s) PO TID 06/20/2010 Inactive terbinafine 250 mg Tab RxNorm: 479379 1 Tablet(s) PO QD 05/24/2010 Inactive Clonidine 0.2 mg Tab RxNorm: 531639 1 Tablet(s) PO TID 05/24/201006/2010 Inactive Ambien 10 mg Tab RxNorm: 924523 1 Tablet(s) PO QHS 05/24/2010 Inactive alprazolam 0.5 mg Tab RxNorm: 268383 1 Tablet(s) PO BID 05/24/2010 Inactive Klor-Con 8 mEq Tab RxNorm: 331016 1 Tablet(s) PO QD 05/24/20102009 Inactive alprazolam 0.5 mg Tab RxNorm: 033320 2 Tablet(s) PO QD prn 05/24/2007/17/2010 Inactive triamterene-hydrochlorothiazide 75 mg-50 mg Tab RxNorm: 3108 18 1 Tablet(s) PO QD 05/24/2010 11/19/2010 Inactive Ambien 10 mg Tab RxNorm: 304864 1 Tablet(s) PO QHS 05/23/2010 Inactive Alprazolam 0.5 mg Tab RxNorm: 944246 2 Tablet(s) PO QD prn 05/23/20 10 05/23/2010 Inactive Premarin 1.25 mg Tab RxNorm: 022517 2 Tablet(s) PO QD 05/19/201007/12 Inactive Hydrocodone-Acetaminophen 7.5 mg-650 mg Tab RxNorm: 298121 1 Ta blet(s) PO Q4H 05/19/2010 03/20/2011 Inactive Prednisone 20 mg Tab RxNorm: 887460 1 Tablet(s) PO BID 05/17/2010 Inactive Prednisone 20 mg Tab RxNorm: 580174 1 Tablet(s) PO BID 05/06/201001/2010 Inactive Premarin 1.25 mg Tab RxNorm: 052680 Tablet(s) PO 2 M-W-F, and 1 Cp-Hw-Dey-Sun 05/05/2010 08/02/2010 Inactive Premarin 1.25 mg Tab RxNorm: 833675 Tablet(s) PO 2 M-W-F, and 1 Fr-Tr-Cgs-Sun 05/04/2010 05/04/2010 Inactive Premarin 1.25 mg Tab RxNorm: 701465 Tablet(s) PO 2 M-W-F, and 1 Za-Ax-Key-Sun 05/04/2010 05/03/2010 Inactive Prednisone 20 mg Tab RxNorm: 628769 1 Tablet(s) PO BID 04/27/2010 Inactive Alprazolam 0.5 mg Tab RxNorm: 706621 2 Tablet(s) PO QD prn 04/26/20 10 05/22/2010 Inactive Clindamycin 300 mg Cap RxNorm: 676726 2 Capsule(s) PO TID 04/05/2010 04/18/2010 Inactive Terbinafine 250 mg Tab RxNorm: 457282 1 Tablet(s) PO QD 04/04/2010 Inactive Hydrocodone-Acetaminophen 7.5 mg-650 mg Tab RxNorm: 045387 1 Ta blet(s) PO Q4H 03/30/2010 04/18/2010 Inactive Avelox 400 mg Tab RxNorm: 746649 1 Tablet(s) PO QD 03/09/2010 Inactive Hydrocodone-Acetaminophen 7.5 mg-650 mg Tab RxNorm: 042066 1 Ta blet(s) PO Q4H 03/08/2010 03/27/2010 Inactive Alprazolam 0.5 mg Tab RxNorm: 034975 2 Tablet(s) PO QD prn 03/08/20 10 04/25/2010 Inactive Klor-Con 8 mEq Tab RxNorm: 062048 1 Tablet(s) PO QD when takes lasi x 03/07/2010 09/29/2019 Inactive Premarin 1.25 mg Tab RxNorm: 478796 1 Tablet(s) PO QD 03/03/201003/11 Inactive Alprazolam 0.5 mg Tab RxNorm: 768217 1 Tablet(s) PO BID PRN 010 No Stop Date Active triamterene-hydrochlorothiazide 75 mg-50 mg Tab RxNorm: 3108 18 1 Tablet(s) PO QD 02/09/2010 02/03/2011 Inactive Hydrocodone-Acetaminophen 10 mg-750 mg Tab RxNorm: 181604 1 Tablet(s) PO Q4H PRN 02/09/2010 03/20/2011 Inactive Clonidine 0.2 mg Tab RxNorm: 300763 1 Tablet(s) PO TID 01/13/201009/2009 Inactive Alprazolam 0.5 mg Tab RxNorm: 909171 1 Tablet(s) PO BID PRN 010 01/12/2010 Inactive Hydrocodone-Acetaminophen 10 mg-750 mg Tab RxNorm: 122981 1 Tablet(s) PO Q4H PRN 01/13/2010 01/12/2010 Inactive ANGELIQ 1 mg-0.5 mg Tab RxNorm: 4844103 1 Tablet(s) PO QD 12/27/2009 01/23/2010 Inactive Lasix 40 mg Tab RxNorm: 365795 1 Tablet(s) PO QAM 12/14/2009 06/11/20 10 Inactive Vitamin B12 1000mcg Tablet RxNorm: 1 Tablet(s) PO QD No Start Date Active cyclobenzaprine 10 mg tablet RxNorm: 592260 1 Tablet(s) PO TID as needed DO NOT USE WITH BACLOFEN No Start Date Active Vitamin D 5,000 unit Tab RxNorm: 1 Tablet(s) PO QD No Start Date Active vitamin E (dl, acetate) 400 unit Cap RxNorm: 950371 1 Capsule(s ) PO QD No Start Date Active Benadryl 25 mg Cap RxNorm: 8330960 Capsule(s) PO PRN No Start Date Inactive amitriptyline 100 mg tablet RxNorm: 080152 1 Tablet(s) PO QHS No St art Date 11/27/2016 Inactive Zithromax Z-Dustin 250 mg tablet RxNorm: 690988 Tablet(s) PO as di rected No Start Date 07/22/2013 Inactive Klor-Con 8 mEq tablet,extended release RxNorm: 497942 1 Tablet( s) PO BID No Start Date 07/28/2012 Inactive scopolamine 1.5 mg 72 hr Transderm Patch RxNorm: 126283 Application TD Q72H for motion sickness No Start Date 05/25/2013 Inactive Klonopin 1 mg tablet RxNorm: 669791 1-2 Tablet(s) PO QHS as nee ded for sleep No Start Date 06/20/2015 Inactive Klor-Con M20 mEq tablet,extended release RxNorm: 256137 2 Tablet(s) PO BID to use with lasix No Start Date 11/11/2013 Inactive Bystolic 5 mg tablet RxNorm: 685614 1 Tablet(s) PO QD No Start Date 1 Inactive Bystolic 10 mg tablet RxNorm: 011461 1 Tablet(s) PO BID No Start Da te 07/06/2015 Inactive Premarin 1.25 mg Tab RxNorm: 930030 Tablet(s) PO 2 -W-, and 1 Pk-Sm-Jfb-Sun No Start Date 05/03/2010 Inactive baclofen 20 mg tablet RxNorm: 972968 1 Tablet(s) PO TID as needed for muscle spasm No Start Date 07/22/2015 Inactive hydrocodone-acetaminophen 7.5 mg-650 mg Tab RxNorm: 609405 1 Tablet(s) PO Q4H as needed for pain No Start Date 03/20/2011 Inactive albuterol sulfate 1.25 mg/3 mL Neb Solution RxNorm: 782132 1 Unit Dose INH Q4H 2boxes No Start Date 09/06/2015 Inactive Butrans 20 mcg/hour Transderm Patch RxNorm: 110052 1 TD WEEKLY apply to skin weekly after removing previous. No Start Date 07/22/2013 Inactive Medrol (Dustin) 4 mg tablets in a dose pack RxNorm: 315278 Tablet(s) PO As Directed No Start Date 07/30/2016 Inactive hydrocodone-acetaminophen 10 mg-325 mg Tab RxNorm: 8841585 1-2 Tablet(s) PO TID as needed for pain No Start Date 03/19/2011 Inactive Klonopin 1 mg tablet RxNorm: 149908 1 Tablet(s) PO QHS No Start Date 02/28/2016 Inactive honey topical RxNorm: topical No Start Date 06/16/2018 Inactive Clonidine 0.2 mg Tab RxNorm: 945267 1 Tablet(s) PO TID No Start Date 01/12/2010 Inactive ketorolac 10 mg tablet RxNorm: 619746 1 Tablet(s) PO Q8H No Start D ate 03/18/2012 Inactive as needed for headache Singulair 10 mg Tab RxNorm: 963210 1 Tablet(s) PO QD No Start Date Inactive Premarin 1.25 mg Tab RxNorm: 114480 1 Tablet(s) PO QD No Start Date 1 Inactive Flonase 50 mcg/Actuation Nasal [place] RxNorm: 6953383 1 [place] CECELIA AL BID No Start Date 03/18/2012 Inactive Terbinafine 250 mg Tab RxNorm: 705912 1 Tablet(s) PO QD No Start Da te 04/03/2010 Inactive Fexofenadine 180 mg Tab RxNorm: 1945785 1 Tablet(s) PO QD No Start Date 09/06/2015 Inactive baclofen 20 mg tablet RxNorm: 536617 1 Tablet(s) PO TID as needed N o Start Date 05/25/2014 Inactive Diovan 160 mg Tab RxNorm: 515221 1 Tablet(s) PO QD No Start Date 09/12 Inactive mupirocin 2 % topical ointment RxNorm: 906038 1 Application TOP QID No Start Date 04/25/2016 Inactive ZOFRAN ODT 4 mg Tab, Rapid Dissolve RxNorm: 871620 1 Tablet(s) PO Q4H No Start Date 03/18/2012 Inactive as needed for nausea and vomiting Alprazolam 0.5 mg Tab RxNorm: 569378 1 Tablet(s) PO BID PRN No Star t Date 01/12/2010 Inactive cyclobenzaprine 10 mg tablet RxNorm: 899579 1 Tablet(s) PO TID as needed for muscle spasm No Start Date 10/08/2017 Inactive Albuterol 0.083% Aerosol Solution RxNorm: 1 Appl ication INH Q4H Use one ampule every 4 hrs with nebulizer as needed for shortness of breath. No Start Date 10/09/2010 Inactive lorazepam 1 mg tablet RxNorm: 405292 1 1/2 Tablet(s) PO QHS No Star t Date 02/02/2016 Inactive Melatonin 3 mg Tab RxNorm: 994764 Tablet(s) PO PRN No Start Date 07/11 Inactive Medrol (Dustin) 4 mg Tabs in a Dose Pack RxNorm: 564224 Tablet(s) PO N o Start Date 11/28/2010 Inactive lorazepam 1 mg tablet RxNorm: 533552 1 Tablet(s) PO QHS as need ed for sleep No Start Date 01/30/2016 Inactive hydrocodone-acetaminophen 10 mg-325 mg Tab RxNorm: 6039003 1-2 Tablet(s) PO QID as needed for severe pain No Start Date 03/24/2012 Inactive celecoxib 200 mg capsule RxNorm: 246025 1 Capsule(s) PO BID No Star t Date 06/26/2019 Inactive amlodipine 5 mg-benazepril 20 mg capsule RxNorm: 223729 1 Capsu le(s) PO QD No Start Date 04/10/2017 Inactive Bystolic 20 mg tablet RxNorm: 796457 1/2 Tablet(s) PO QAM No Start Date 01/23/2016 Inactive Bystolic 20 mg tablet RxNorm: 178814 1 Tablet(s) PO QAM No Start Da te 04/25/2016 Inactive Ambien 10 mg Tab RxNorm: 877343 1 Tablet(s) PO QHS No Start Date 05/11 Inactive Klor-Con 8 mEq Tab RxNorm: 659275 1 Tablet(s) PO QD when takes lasix No Start Date 03/06/2010 Inactive aspirin 81 mg tablet RxNorm: 534305 1 Tablet(s) PO QD No Start Date 0 01/29/2018 Inactive hydrocodone-acetaminophen 10 mg-325 mg Tab RxNorm: 5964228 1-2 T ablet(s) PO QID No Start Date 01/10/2012 Inactive Bystolic 10 mg tablet RxNorm: 597365 1 Tablet(s) PO QAM take one daily in the morning. No Start Date 05/28/2013 Inactive nystatin 100,000 unit/mL Oral Susp RxNorm: 610978 5 Milliliter( s) PO QID No Start Date 03/18/2012 Inactive swish and spit scopolamine 1.5 mg 72 hr Transderm Patch RxNorm: 018402 1 Unit Dose TD Q72H for motion sickness No Start Date 12/23/2013 Inactive Hydrocodone-Acetaminophen 10 mg-750 mg Tab RxNorm: 656474 1 Tablet(s) PO Q4H PRN No Start Date 01/12/2010 Inactive Soma 350 mg tablet RxNorm: 320809 1 Tablet(s) PO TID as needed for spasm No Start Date 01/12/2013 Inactive baclofen 10 mg tablet RxNorm: 583182 1 Tablet(s) PO TID as needed for muscle spasm No Start Date 09/18/2019 Inactive Soma 350 mg Tab RxNorm: 996436 1 Tablet(s) PO TID for spasm No Star t Date 01/31/2012 Inactive Co Q-10 400 mg capsule RxNorm: 887703 1 Capsule(s) PO QD No Start D ate 01/21/2019 Inactive nystatin 100,000 unit/gram topical cream RxNorm: 634551 Applica tion TOP BID No Start Date 03/22/2015 Inactive Exforge 5 mg-160 mg Tab RxNorm: 760345 1 Tablet(s) PO QD No Start D ate 10/09/2010 Inactive Hydrocodone-Acetaminophen 7.5 mg-650 mg Tab RxNorm: 861868 1 Ta blet(s) PO Q4H No Start Date 03/07/2010 Inactive Robaxin-750 750 mg Tab RxNorm: 706067 1-2 Tablet(s) PO TID prn spasm No Start Date 05/21/2011 Inactive amlodipine 5 mg tablet RxNorm: 137500 1 Tablet(s) PO QHS No Start D ate 09/29/2015 Inactive oxycodone-acetaminophen 10 mg-325 mg tablet RxNorm: 2830818 1-2 Tablet(s) PO Q6H No Start Date 06/16/2018 Inactive Triamterene-Hydrochlorothiazide 75 mg-50 mg Tab RxNorm: 3108 18 1 Tablet(s) PO QD No Start Date 02/08/2010 Inactive Alprazolam 0.5 mg Tab RxNorm: 171945 2 Tablet(s) PO QD prn No Start Date 03/07/2010 Inactive Bystolic 20 mg tablet RxNorm: 760769 1 Tablet(s) PO QAM No Start Da te 08/17/2015 Inactive ketorolac 10 mg tablet RxNorm: 587984 1 Tablet(s) PO QID prn he adache No Start Date 07/17/2012 Inactive acyclovir 800 mg Tab RxNorm: 990884 1 Tablet(s) PO BID No Start Date 03/18/2012 Inactive duloxetine 60 mg capsule,delayed release RxNorm: 867627 1 Capsu le(s) PO QD No Start Date 09/29/2015 Inactive Norvasc 5 mg tablet RxNorm: 337457 1 Tablet(s) PO QHS No Start Date 1 10/18/2014 Inactive promethazine 25 mg tablet RxNorm: 583858 1 Tablet(s) PO Q8H use sparingly No Start Date 07/22/2013 Inactive alprazolam 0.5 mg tablet RxNorm: 366178 3 Tablet(s) PO QHS No Start Date 06/06/2015 Inactive Lunesta 3 mg tablet RxNorm: 293656 1 Tablet(s) PO QHS No Start Date 0 09/20/2017 Inactive hydrocodone-acetaminophen 10 mg-325 mg Tab RxNorm: 6342639 1-2 Tablet(s) PO TID as needed for pain No Start Date 12/10/2011 Inactive Coricidin HBP Cough & Cold 4 mg-30 mg Tab RxNorm: 0985956 Tablet (s) PO PRN No Start Date 10/09/2010 Inactive Bactroban 2 % Ointment RxNorm: 960825 Application TOP QID to so res No Start Date 02/22/2012 Inactive Flonase 50 mcg/actuation Nasal [place] RxNorm: 756611 2 [place] QHS No Start Date 03/03/2014 Inactive Medication Administered No Medication Administered data Immunizations Vaccine Codes Date Status Tetanus, Diptheria, Pertussis CVX: 115 02/27/2014 Results Observation Observation Code Item Item Code Result Date S vice Location COMPREHENSIVE METABOLIC 73711 AST 15 U/L 2019 Unknown COMPREHENSIVE METABOLIC 87464 ALT 13 U/L 2019 Unknown COMPREHENSIVE METABOLIC 10542 BUN 12 mg/dL 2019 Unknown COMPREHENSIVE METABOLIC 63648 ALBUMIN 3.9 g/dL 2019 Unknown COMPREHENSIVE METABOLIC 77921 CHLORIDE 97 mmol/L 2019 Unknown COMPREHENSIVE METABOLIC 07396 Bili Total 0.4 mg/dL 09/29 Unknown COMPREHENSIVE METABOLIC 36642 ALK PHOS 130 U/L 2019 Unknown COMPREHENSIVE METABOLIC 62983 SODIUM 136 mmol/L 09/29 Unknown COMPREHENSIVE METABOLIC 58920 CREATININE 0.92 mg/dL 09/11 Unknown COMPREHENSIVE METABOLIC 28083 CALCIUM 9.1 mg/dL 2019 Unknown COMPREHENSIVE METABOLIC 78167 POTASSIUM 4.4 mmol/L 09/29 Unknown COMPREHENSIVE METABOLIC 43509 Total Protein 6.2 g/dL Unknown COMPREHENSIVE METABOLIC 47596 Glucose 391 mg/dL 2019 Unknown COMPREHENSIVE METABOLIC 08010 Bicarbonate 30 mmol/L 09/11 Unknown COMPREHENSIVE METABOLIC 01529 AGAP 9 mmol/L 2019 Unknown MEAN GLUC 3148908 Calc Mean Gluc 332 mg/dL 09/29/2019 Unkn own COMPLETE BLOOD COUNT 6069939 WBC 7.0 10e9/L 09/29/19 Unknown COMPLETE BLOOD COUNT 0932193 RBC 4.69 10e12/L 2019 Unknown COMPLETE BLOOD COUNT 3246437 HEMOGLOBIN 14.6 g/dL 09/29/19 Unknown COMPLETE BLOOD COUNT 3645802 HEMATOCRIT 45.2 % 09/29/19 Unknown COMPLETE BLOOD COUNT 2298491 MCV 96.4 fL 0 Unknown COMPLETE BLOOD COUNT 3044853 MCH 31.1 pg 0 Unknown COMPLETE BLOOD COUNT 9329400 MCHC 32.3 g/dL 0 Unknown COMPLETE BLOOD COUNT 5596198 PLATELET COUNT 209 10e9/L Unknown COMPLETE BLOOD COUNT 5329186 Mean Plt Volume 9.8 fL Unknown COMPLETE BLOOD COUNT 1104776 Neut Auto 48.1 % 0 Unknown COMPLETE BLOOD COUNT 4703843 Lymph Auto 36.5 % 09/29/19 20 Unknown COMPLETE BLOOD COUNT 0393614 [place] Auto 8.6 % 0 Unknown COMPLETE BLOOD COUNT 2154334 RDW 13.4 % 0 Unknown COMPLETE BLOOD COUNT 1683733 Eos Auto 6.5 % 0 Unknown COMPLETE BLOOD COUNT 7171208 Baso Auto 0.3 % 0 Unknown COMPLETE BLOOD COUNT 0175146 Neutrophil Abs 3.37 10e9/L Unknown COMPLETE BLOOD COUNT 0910381 Lymphocyte Abs 2.56 10e9/L Unknown COMPLETE BLOOD COUNT 3910410 Monocyte Abs 0.60 10e9/L 09/11 Unknown COMPLETE BLOOD COUNT 2971104 Eosinophil Abs 0.46 10e9/L Unknown COMPLETE BLOOD COUNT 1485614 RDW-SD 45.9 fL 0 Unknown COMPLETE BLOOD COUNT 1741015 Basophil Abs 0.02 10e9/L 09/11 Unknown LIPID GROUP 87859 Cholesterol 248 mg/dL 09/29/2019 Unkno wn LIPID GROUP 96509 Triglyceride 898 mg/dL 09/29/2019 Unkn own LIPID GROUP 68280 HDL CHOLESTEROL 41 mg/dL 09/29/2019 U nknown LIPID GROUP 53786 Chol/HDL Ratio 6.05 ratio 09/29/2019 U nknown LIPID GROUP 51517 NON-HDL Chol 207 mg/dL 09/29/2019 Unkn own LIPID GROUP 52403 LDL Cholesterol N/A Trig >400 020 Unknown GLYCOSYLATED HEMOGLOBIN TEST 81120 Hgb A1c 70511-6 13.2 % 0 09/29/2019 Unknown FREE T4 05786 T4 Free 0.75 ng/dL 09/29/2019 Unknown GFR CALC 6048353 GFR Non Afr Amr >60 mL/min 09/29/2019 Un known GFR CALC 2510550 GFR Afr Amr >60 mL/min 09/29/2019 Unknow n THYROID STIMULATING HORMONE 30260 TSH 4.245 uIU/mL 09/29/2019 Unknown COMPLETE BLOOD COUNT 8009730 WBC 10.7 10e9/L 018 Unknown COMPLETE BLOOD COUNT 6191026 RBC 4.59 10e12/L 2017 Unknown COMPLETE BLOOD COUNT 2624532 HEMOGLOBIN 14.8 g/dL 12/11/19 18 Unknown COMPLETE BLOOD COUNT 6534643 HEMATOCRIT 44.9 % 12/11/19 18 Unknown COMPLETE BLOOD COUNT 2261606 MCV 97.8 fL 8 Unknown COMPLETE BLOOD COUNT 4665640 MCH 32.2 pg 8 Unknown COMPLETE BLOOD COUNT 0090300 MCHC 33.0 g/dL 8 Unknown COMPLETE BLOOD COUNT 8760187 PLATELET COUNT 261 10e9/L 10/2017 Unknown COMPLETE BLOOD COUNT 5169278 Mean Plt Volume 9.5 fL 10/2017 Unknown COMPLETE BLOOD COUNT 8433299 Neut Auto 59.9 % 8 Unknown COMPLETE BLOOD COUNT 1948434 Lymph Auto 27.4 % 12/11/19 18 Unknown COMPLETE BLOOD COUNT 1654338 [place] Auto 8.2 % 8 Unknown COMPLETE BLOOD COUNT 0319920 RDW 13.3 % 8 Unknown COMPLETE BLOOD COUNT 3897583 Eos Auto 4.1 % 8 Unknown COMPLETE BLOOD COUNT 8776621 Baso Auto 0.4 % 8 Unknown COMPLETE BLOOD COUNT 0241686 Neutrophil Abs 6.41 10e9/L Unknown COMPLETE BLOOD COUNT 7325593 Lymphocyte Abs 2.93 10e9/L Unknown COMPLETE BLOOD COUNT 9425723 Monocyte Abs 0.88 10e9/L 10/2017 Unknown COMPLETE BLOOD COUNT 8821865 Eosinophil Abs 0.44 10e9/L Unknown COMPLETE BLOOD COUNT 6390608 RDW-SD 46.2 fL 8 Unknown COMPLETE BLOOD COUNT [id number] Basophil Abs 0.04 10e9/L 10/2017 Unknown THYROID STIMULATING HORMONE 91399 TSH 4.015 uIU/mL 12/10/2017 Unknown COMPREHENSIVE METABOLIC 30737 AST 25 U/L 2017 Unknown COMPREHENSIVE METABOLIC 75715 ALT 17 U/L 2017 Unknown COMPREHENSIVE METABOLIC 04500 BUN 19 mg/dL 2017 Unknown COMPREHENSIVE METABOLIC 71527 ALBUMIN 4.0 g/dL 2017 Unknown COMPREHENSIVE METABOLIC 22184 CHLORIDE 91 mmol/L 2017 Unknown COMPREHENSIVE METABOLIC 60150 Bili Total 0.5 mg/dL 12/10 Unknown COMPREHENSIVE METABOLIC 66878 ALK PHOS 75 U/L 2017 Unknown COMPREHENSIVE METABOLIC 95234 SODIUM 136 mmol/L 12/10 Unknown COMPREHENSIVE METABOLIC 20830 CREATININE 1.05 mg/dL 10/2017 Unknown COMPREHENSIVE METABOLIC 40247 CALCIUM 8.9 mg/dL 2017 Unknown COMPREHENSIVE METABOLIC 61177 POTASSIUM 3.4 mmol/L 12/10 Unknown COMPREHENSIVE METABOLIC 64172 Total Protein 6.5 g/dL Unknown COMPREHENSIVE METABOLIC 72930 Glucose 138 mg/dL 2017 Unknown COMPREHENSIVE METABOLIC 13730 Bicarbonate 35 mmol/L 10/2017 Unknown COMPREHENSIVE METABOLIC 51178 AGAP 10 mmol/L 2017 Unknown MEAN GLUC 2749962 Calc Mean Gluc 171 mg/dL 12/10/2017 Unkn own LIPID GROUP 92062 Cholesterol 204 mg/dL 12/10/2017 Unkno wn LIPID GROUP 90730 Triglyceride 411 mg/dL 12/10/2017 Unkn own LIPID GROUP 64992 HDL CHOLESTEROL 50 mg/dL 12/10/2017 U nknown LIPID GROUP 41198 Chol/HDL Ratio 4.08 ratio 12/10/2017 U nknown LIPID GROUP 59625 NON-HDL Chol 154 mg/dL 12/10/2017 Unkn own LIPID GROUP 79890 LDL Cholesterol N/A Trig >400 018 Unknown GLYCOSYLATED HEMOGLOBIN TEST 46209 Hgb A1c 20188-7 7.6 % 0 12/10/2017 Unknown FREE T4 43197 T4 Free 1.40 ng/dL 12/10/2017 Unknown GFR CALC 6097672 GFR Non Afr Amr 55 mL/min 12/10/2017 Unk nown GFR CALC 7599553 GFR Afr Amr >60 mL/min 12/10/2017 Unknow n GFR CALC 6089025 GFR Non Afr Amr 48 mL/min 06/28/2017 Unk nown GFR CALC 8454526 GFR Afr Amr 59 mL/min 06/28/2017 Unknown COMPREHENSIVE METABOLIC 33602 AST 32 U/L 2016 Unknown COMPREHENSIVE METABOLIC 41984 ALT 22 U/L 2016 Unknown COMPREHENSIVE METABOLIC 22787 BUN 23 mg/dL 2016 Unknown COMPREHENSIVE METABOLIC 57831 ALBUMIN 4.7 g/dL 2016 Unknown COMPREHENSIVE METABOLIC 47324 CHLORIDE 89 mmol/L 2016 Unknown COMPREHENSIVE METABOLIC 07867 Bili Total 0.5 mg/dL 06/28 Unknown COMPREHENSIVE METABOLIC 54400 ALK PHOS 90 U/L 2016 Unknown COMPREHENSIVE METABOLIC 65452 SODIUM 135 mmol/L 06/28 Unknown COMPREHENSIVE METABOLIC 56706 CREATININE 1.18 mg/dL 06/10 Unknown COMPREHENSIVE METABOLIC 76375 CALCIUM 9.7 mg/dL 2016 Unknown COMPREHENSIVE METABOLIC 45883 POTASSIUM 3.5 mmol/L 06/28 Unknown COMPREHENSIVE METABOLIC 18502 Total Protein 7.7 g/dL Unknown COMPREHENSIVE METABOLIC 99255 Glucose 129 mg/dL 2016 Unknown COMPREHENSIVE METABOLIC 24858 Bicarbonate 34 mmol/L 06/10 Unknown COMPREHENSIVE METABOLIC 67717 AGAP 12 mmol/L 2016 Unknown LIPID GROUP 87977 HDL TEST 64 MG/DL 08/27/2014 Unknown LIPID GROUP 36551 TRIG 222 MG/DL 08/27/2014 Unknown LIPID GROUP 78597 TEST LDL 209 MG/DL 08/27/2014 Unknown LIPID GROUP 56970 CHOL 317 MG/DL 08/27/2014 Unknown LIPID GROUP 83896 RCHOL/HDL 4.95 RATIO 08/27/2014 Unknow n LIPID GROUP 77006 NON-HDL CH 253 MG/DL 08/27/2014 Unknow n GFR CALC 5295093 GFR AA >60 ML/MIN 08/27/2014 Unknown GFR CALC 7214912 GFR NON-AA >60 ML/MIN 08/27/2014 Unknown COMPLETE BLOOD COUNT 8866897 WBC 7.0 10e9/L 08/27/20 14 Unknown COMPLETE BLOOD COUNT 9881900 RBC 4.98 10e12/L 2013 Unknown COMPLETE BLOOD COUNT 0389738 HGB 15.6 g/dL 4 Unknown COMPLETE BLOOD COUNT 4486333 HCT DET 46.5 % 4 Unknown COMPLETE BLOOD COUNT 3175031 MCV 93.4 fL 4 Unknown COMPLETE BLOOD COUNT 6195528 MCH 31.3 pg 4 Unknown COMPLETE BLOOD COUNT 4037648 MCHC 33.5 g/dL 4 Unknown COMPLETE BLOOD COUNT 5206474 PLT 309 10e9/L 08/27/20 14 Unknown COMPLETE BLOOD COUNT 9051385 MPV 9.6 fL 4 Unknown COMPLETE BLOOD COUNT 9660063 CADEN % 57.2 % 4 Unknown COMPLETE BLOOD COUNT 6767294 LY % 33.2 % 4 Unknown COMPLETE BLOOD COUNT 4446894 MON % 7.3 % 4 Unknown COMPLETE BLOOD COUNT 0311195 EOS % 2.0 % 4 Unknown COMPLETE BLOOD COUNT 1372566 BASO % 0.3 % 4 Unknown COMPLETE BLOOD COUNT 4172552 RDW 13.7 % 4 Unknown COMPLETE BLOOD COUNT 0278094 ABS CADEN 4.00 10e9/L 014 Unknown COMPLETE BLOOD COUNT 2604760 ABS LYMPH 2.32 10e9/L 014 Unknown COMPLETE BLOOD COUNT 4375331 ABS MONO 0.51 10e9/L 014 Unknown COMPLETE BLOOD COUNT 3373836 ABS EOS 0.14 10e9/L 014 Unknown COMPLETE BLOOD COUNT 5570824 ABS BASO 0.02 10e9/L 014 Unknown COMPLETE BLOOD COUNT 9491193 RDW-SD 45.1 fL 4 Unknown COMPREHENSIVE METABOLIC 15901 AST 13 U/L 2013 Unknown COMPREHENSIVE METABOLIC 36539 ALT 11 IU/L 2013 Unknown COMPREHENSIVE METABOLIC 83991 BUN 23 MG/DL 2013 Unknown COMPREHENSIVE METABOLIC 40956 ALBUMIN 4.4 GM/DL 2013 Unknown COMPREHENSIVE METABOLIC 00654 CHLORIDE 99 MMOL/L 2013 Unknown COMPREHENSIVE METABOLIC 74747 BILI TOT 0.5 MG/DL 2013 Unknown COMPREHENSIVE METABOLIC 73501 ALK PHOS 56 U/L 2013 Unknown COMPREHENSIVE METABOLIC 91504 SODIUM 138 MMOL/L 08/27 Unknown COMPREHENSIVE METABOLIC 09478 CREATININE 0.95 MG/DL 08/10 Unknown COMPREHENSIVE METABOLIC 50180 CALCIUM 9.8 MG/DL 2013 Unknown COMPREHENSIVE METABOLIC 02767 POTASSIUM 3.5 MMOL/L 08/27 Unknown COMPREHENSIVE METABOLIC 43882 PROT TOT 6.8 GM/DL 2013 Unknown COMPREHENSIVE METABOLIC 84237 Glucose 90 MG/DL 2013 Unknown COMPREHENSIVE METABOLIC 96414 BICARB 34 MMOL/L 2013 Unknown COMPREHENSIVE METABOLIC 64082 ANION GAP 5 MEQ/L 2013 Unknown LIPASE 74524 LIPASE 11 IU/L 07/21/2014 Unknown AMYLASE 80986 AMYLASE 39 IU/L 07/21/2014 Unknown HEMOGLOBIN A1C (GLYCOSYLATED) 8955290 A1C HPLC 77526-2 6.2 % 03/05/2013 Unknown THYROID STIMULATING HORMONE 88930 TSH 6.986 uIU/ML 03/05/2013 Unknown COMPLETE BLOOD COUNT 8819844 WBC 12.7 10e9/L 013 Unknown COMPLETE BLOOD COUNT 1507551 RBC 4.53 10e12/L 2012 Unknown COMPLETE BLOOD COUNT 6964890 HGB 14.7 g/dL 3 Unknown COMPLETE BLOOD COUNT 5339447 HCT DET 43.1 % 3 Unknown COMPLETE BLOOD COUNT 4914104 MCV 95.1 fL 3 Unknown COMPLETE BLOOD COUNT 0062515 MCH 32.5 pg 3 Unknown COMPLETE BLOOD COUNT 8144918 MCHC 34.1 g/dL 3 Unknown COMPLETE BLOOD COUNT 2833305 PLT 346 10e9/L 03/05/20 13 Unknown COMPLETE BLOOD COUNT 8149182 MPV 9.5 fL 3 Unknown COMPLETE BLOOD COUNT 8577750 CADEN % 67.6 % 3 Unknown COMPLETE BLOOD COUNT 7665720 LY % 22.1 % 3 Unknown COMPLETE BLOOD COUNT 8371422 MON % 6.6 % 3 Unknown COMPLETE BLOOD COUNT 7065049 EOS % 3.3 % 3 Unknown COMPLETE BLOOD COUNT 4484202 BASO % 0.4 % 3 Unknown COMPLETE BLOOD COUNT 8743186 RDW 14.0 % 3 Unknown COMPLETE BLOOD COUNT 6861919 ABS CADEN 8.59 10e9/L 013 Unknown COMPLETE BLOOD COUNT 1377493 ABS LYMPH 2.81 10e9/L 013 Unknown COMPLETE BLOOD COUNT 8579910 ABS MONO 0.84 10e9/L 013 Unknown COMPLETE BLOOD COUNT 4637100 ABS EOS 0.42 10e9/L 013 Unknown COMPLETE BLOOD COUNT 0258018 ABS BASO 0.05 10e9/L 013 Unknown COMPLETE BLOOD COUNT 5948494 RDW-SD 46.0 fL 06/26/201 3 Unknown FREE T4 78210 FREE T4 1.14 NG/DL 03/05/2013 Unknown COMPREHENSIVE METABOLIC 12588 AST 17 U/L 2012 Unknown COMPREHENSIVE METABOLIC 13340 ALT 12 IU/L 2012 Unknown COMPREHENSIVE METABOLIC 13784 BUN 24 MG/DL 2012 Unknown COMPREHENSIVE METABOLIC 83250 ALBUMIN 4.2 GM/DL 2012 Unknown COMPREHENSIVE METABOLIC 43535 CHLORIDE 93 MMOL/L 2012 Unknown COMPREHENSIVE METABOLIC 43441 BILI TOT 0.5 MG/DL 2012 Unknown COMPREHENSIVE METABOLIC 02719 ALK PHOS 75 U/L 2012 Unknown COMPREHENSIVE METABOLIC 83198 SODIUM 141 MMOL/L 03/05 Unknown COMPREHENSIVE METABOLIC 43706 CREATININE 1.36 MG/DL 02/09 Unknown COMPREHENSIVE METABOLIC 08335 CALCIUM 9.2 MG/DL 2012 Unknown COMPREHENSIVE METABOLIC 00162 POTASSIUM 3.1 MMOL/L 03/05 Unknown COMPREHENSIVE METABOLIC 48483 PROT TOT 6.9 GM/DL 2012 Unknown COMPREHENSIVE METABOLIC 45475 Glucose 123 MG/DL 2012 Unknown COMPREHENSIVE METABOLIC 13812 BICARB 36 MMOL/L 2012 Unknown COMPREHENSIVE METABOLIC 12686 ANION GAP 12 MEQ/L 2012 Unknown GFR CALC 1795969 GFR AA 51.0L ML/MIN 03/05/2013 Unknow n GFR CALC 7003211 GFR NON-AA 42.0L ML/MIN 03/05/2013 Unkno wn COMPREHENSIVE METABOLIC 72310 AST 14 U/L 2012 Unknown COMPREHENSIVE METABOLIC 25900 ALT 11 IU/L 2012 Unknown COMPREHENSIVE METABOLIC 60447 BUN 16 MG/DL 2012 Unknown COMPREHENSIVE METABOLIC 29333 ALBUMIN 4.2 GM/DL 2012 Unknown COMPREHENSIVE METABOLIC 45183 CHLORIDE 98 MMOL/L 2012 Unknown COMPREHENSIVE METABOLIC 45876 BILI TOT 0.4 MG/DL 2012 Unknown COMPREHENSIVE METABOLIC 58087 ALK PHOS 77 U/L 2012 Unknown COMPREHENSIVE METABOLIC 27630 SODIUM 139 MMOL/L 09/25 Unknown COMPREHENSIVE METABOLIC 76678 CREATININE 0.86 MG/DL 09/10 Unknown COMPREHENSIVE METABOLIC 37763 CALCIUM 9.5 MG/DL 2012 Unknown COMPREHENSIVE METABOLIC 53832 POTASSIUM 3.8 MMOL/L 09/25 Unknown COMPREHENSIVE METABOLIC 12731 PROT TOT 6.8 GM/DL 2012 Unknown COMPREHENSIVE METABOLIC 95350 Glucose 91 MG/DL 2012 Unknown COMPREHENSIVE METABOLIC 37842 BICARB 32 MMOL/L 2012 Unknown COMPREHENSIVE METABOLIC 67759 ANION GAP 9 MEQ/L 2012 Unknown FREE T4 71925 FREE T4 0.98 NG/DL 09/25/2012 Unknown THYROID STIMULATING HORMONE 17802 TSH 1.736 uIU/ML 09/25/2012 Unknown C-REACTIVE PROTEIN (CRP) QUANT 69871 CRP 2.3 MG/DL 09/25/2012 Unknown COMPLETE BLOOD COUNT 6679771 WBC 11.9 10e9/L 013 Unknown COMPLETE BLOOD COUNT 8190014 RBC 4.87 10e12/L 2012 Unknown COMPLETE BLOOD COUNT 3093309 HGB 15.1 g/dL 3 Unknown COMPLETE BLOOD COUNT 0964173 HCT DET 44.8 % 3 Unknown COMPLETE BLOOD COUNT 0453326 MCV 92.0 fL 3 Unknown COMPLETE BLOOD COUNT 4132692 MCH 31.0 pg 3 Unknown COMPLETE BLOOD COUNT 6742146 MCHC 33.7 g/dL 3 Unknown COMPLETE BLOOD COUNT 6716221 PLT 343 10e9/L 09/25/19 13 Unknown COMPLETE BLOOD COUNT 9692803 MPV 9.0 fL 3 Unknown COMPLETE BLOOD COUNT 7474882 CADEN % 68.2 % 3 Unknown COMPLETE BLOOD COUNT 9518374 LY % 22.4 % 3 Unknown COMPLETE BLOOD COUNT 4397389 MON % 6.4 % 3 Unknown COMPLETE BLOOD COUNT 9349963 EOS % 2.7 % 3 Unknown COMPLETE BLOOD COUNT 0629111 BASO % 0.3 % 3 Unknown COMPLETE BLOOD COUNT 2961551 RDW 13.8 % 3 Unknown COMPLETE BLOOD COUNT 9156325 ABS CADEN 8.12 10e9/L 013 Unknown COMPLETE BLOOD COUNT 2770261 ABS LYMPH 2.67 10e9/L 013 Unknown COMPLETE BLOOD COUNT 6842611 ABS MONO 0.76 10e9/L 013 Unknown COMPLETE BLOOD COUNT 1056460 ABS EOS 0.32 10e9/L 013 Unknown COMPLETE BLOOD COUNT 2592452 ABS BASO 0.04 10e9/L 013 Unknown COMPLETE BLOOD COUNT 9779990 RDW-SD 45.6 fL 3 Unknown GFR CALC 6083648 GFR AA >60 ML/MIN 09/25/2012 Unknown GFR CALC 1457045 GFR NON-AA >60 ML/MIN 09/25/2012 Unknown ERYTHROCYTE SEDIMENTATION RATE 12852 ESR 19 MM/HR 05/06/2012 Unknown VITAMIN B 12 FOLIC ACID 94017|94213 VIT B 12 922 PG/ML 04/11 Unknown VITAMIN B 12 FOLIC ACID 52688|11717 FOLIC ACID 13.6 NG/ML Unknown URIC ACID 59979 URIC ACID 7.8 MG/DL 05/06/2012 Unknown COMPLETE BLOOD COUNT 86127 WBC 11.9 10e9/L 012 Unknown COMPLETE BLOOD COUNT 49806 RBC 5.30 10e12/L 2011 Unknown COMPLETE BLOOD COUNT 93214 HGB 16.6 g/dL 2 Unknown COMPLETE BLOOD COUNT 25818 HCT DET 47.2 % 2 Unknown COMPLETE BLOOD COUNT 26332 MCV 89.1 fL 2 Unknown COMPLETE BLOOD COUNT 98476 MCH 31.3 pg 2 Unknown COMPLETE BLOOD COUNT 51379 MCHC 35.2 g/dL 2 Unknown COMPLETE BLOOD COUNT 81791 PLT 362 10e9/L 05/06/20 12 Unknown COMPLETE BLOOD COUNT 59030 MPV 9.4 fL 2 Unknown COMPLETE BLOOD COUNT 34874 CADEN % 68.2 % 2 Unknown COMPLETE BLOOD COUNT 90071 LY % 22.0 % 2 Unknown COMPLETE BLOOD COUNT 08313 MON % 6.9 % 2 Unknown COMPLETE BLOOD COUNT 81454 EOS % 2.6 % 2 Unknown COMPLETE BLOOD COUNT 74004 BASO % 0.3 % 2 Unknown COMPLETE BLOOD COUNT 26222 RDW 12.8 % 2 Unknown COMPLETE BLOOD COUNT 30877 ABS CADEN 8.12 10e9/L 012 Unknown COMPLETE BLOOD COUNT 71495 ABS LYMPH 2.62 10e9/L 08/27/2 012 Unknown COMPLETE BLOOD COUNT 61623 ABS MONO 0.82 10e9/L 012 Unknown COMPLETE BLOOD COUNT 81233 ABS EOS 0.31 10e9/L 012 Unknown COMPLETE BLOOD COUNT 90645 ABS BASO 0.04 10e9/L 012 Unknown COMPLETE BLOOD COUNT 01738 RDW-SD 41.5 fL 2 Unknown GFR CALC 7299337 GFR AA >60 ML/MIN 05/06/2012 Unknown GFR CALC 5689725 GFR NON-AA 58.0L ML/MIN 05/06/2012 Unkno wn FREE T4 43504 FREE T4 1.15 NG/DL 05/06/2012 Unknown THYROID STIMULATING HORMONE 90017 TSH 1.568 uIU/ML 05/06/2012 Unknown COMPREHENSIVE METABOLIC 28996 AST 20 U/L 2011 Unknown COMPREHENSIVE METABOLIC 31917 ALT 12 IU/L 2011 Unknown COMPREHENSIVE METABOLIC 93243 BUN 20 MG/DL 2011 Unknown COMPREHENSIVE METABOLIC 69255 ALBUMIN 4.5 GM/DL 2011 Unknown COMPREHENSIVE METABOLIC 71938 CHLORIDE 91 MMOL/L 2011 Unknown COMPREHENSIVE METABOLIC 62429 BILI TOT 0.4 MG/DL 2011 Unknown COMPREHENSIVE METABOLIC 43673 ALK PHOS 73 U/L 2011 Unknown COMPREHENSIVE METABOLIC 95736 SODIUM 139 MMOL/L 05/06 Unknown COMPREHENSIVE METABOLIC 52308 CREATININE 1.02 MG/DL 04/11 Unknown COMPREHENSIVE METABOLIC 00586 CALCIUM 9.7 MG/DL 2011 Unknown COMPREHENSIVE METABOLIC 89926 POTASSIUM 3.1 MMOL/L 05/06 Unknown COMPREHENSIVE METABOLIC 60808 PROT TOT 7.3 GM/DL 2011 Unknown COMPREHENSIVE METABOLIC 57155 Glucose 118 MG/DL 2011 Unknown COMPREHENSIVE METABOLIC 48789 BICARB 33 MMOL/L 2011 Unknown COMPREHENSIVE METABOLIC 89391 ANION GAP 15 MEQ/L 2011 Unknown Procedures Procedure Codes Date ROUTINE VENIPUNCTURE CPT-4: 76413 09/29/2019 URINALYSIS NONAUTO W/O SCOPE CPT-4: 08490 09/29/2019 COMPREHEN METABOLIC PANEL CPT-4: 65715 09/29/2019 LIPID PANEL CPT-4: 19212 09/29/2019 A1C HPLC CPT-4: 19045 09/29/2019 ASSAY OF FREE THYROXINE CPT-4: 68349 09/29/2019 ASSAY THYROID STIM HORMONE CPT-4: 01615 09/29/2019 COMPLETE CBC W/AUTO DIFF WBC CPT-4: 31026 09/29/2019 URINALYSIS NONAUTO W/O SCOPE CPT-4: 94958 09/30/2018 MICROALBUMIN QUANTITATIVE CPT-4: 98967 09/30/2018 CEFTRIAXONE SODIUM INJECTION CPT-4: J0696 06/19/2018 THER/PROPH/DIAG INJ SC/IM CPT-4: 27780 06/19/2018 CEFTRIAXONE SODIUM INJECTION CPT-4: J0696 06/17/2018 THER/PROPH/DIAG INJ SC/IM CPT-4: 05297 06/17/2018 THER/PROPH/DIAG INJ SC/IM CPT-4: 63776 05/16/2018 KETOROLAC TROMETHAMINE INJ CPT-4: J1885 05/16/2018 ONDANSETRON HCL INJECTION CPT-4: J2405 05/16/2018 THER/PROPH/DIAG INJ SC/IM CPT-4: 54406 05/16/2018 ROUTINE VENIPUNCTURE CPT-4: 70033 03/20/2018 COMPREHEN METABOLIC PANEL CPT-4: 12101 03/20/2018 DEXAMETHASONE SODIUM PHOS CPT-4: J1100 02/11/2018 THER/PROPH/DIAG INJ SC/IM CPT-4: 74304 02/11/2018 TRIAMCINOLONE ACET INJ NOS CPT-4: J3301 02/11/2018 CEFTRIAXONE SODIUM INJECTION CPT-4: J0696 02/01/2018 THER/PROPH/DIAG INJ SC/IM CPT-4: 48894 02/01/2018 CEFTRIAXONE SODIUM INJECTION CPT-4: J0696 01/30/2018 THER/PROPH/DIAG INJ SC/IM CPT-4: 64937 01/30/2018 ROUTINE VENIPUNCTURE CPT-4: 62681 12/10/2017 ASSAY OF FREE THYROXINE CPT-4: 41288 12/10/2017 ASSAY THYROID STIM HORMONE CPT-4: 51226 12/10/2017 COMPREHEN METABOLIC PANEL CPT-4: 99398 12/10/2017 COMPLETE CBC W/AUTO DIFF WBC CPT-4: 44196 12/10/2017 LIPID PANEL CPT-4: 16128 12/10/2017 A1C HPLC CPT-4: 30317 12/10/2017 CEFTRIAXONE SODIUM INJECTION CPT-4: J0696 12/10/2017 THER/PROPH/DIAG INJ SC/IM CPT-4: 96959 12/10/2017 CEFTRIAXONE SODIUM INJECTION CPT-4: J0696 12/07/2017 THER/PROPH/DIAG INJ SC/IM CPT-4: 51605 12/07/2017 DEXAMETHASONE SODIUM PHOS CPT-4: J1100 12/07/2017 THER/PROPH/DIAG INJ SC/IM CPT-4: 93470 12/07/2017 CEFTRIAXONE SODIUM INJECTION CPT-4: J0696 10/08/2017 THER/PROPH/DIAG INJ SC/IM CPT-4: 26147 10/08/2017 CEFTRIAXONE SODIUM INJECTION CPT-4: J0696 09/21/2017 THER/PROPH/DIAG INJ SC/IM CPT-4: 06100 09/21/2017 CEFTRIAXONE SODIUM INJECTION CPT-4: J0696 09/20/2017 THER/PROPH/DIAG INJ SC/IM CPT-4: 84489 09/20/2017 REMOVAL OF NAIL PLATE CPT-4: 68327 08/29/2017 THER/PROPH/DIAG INJ SC/IM CPT-4: 24475 08/29/2017 TRIAMCINOLONE ACET INJ NOS CPT-4: J3301 08/29/2017 CEFTRIAXONE SODIUM INJECTION CPT-4: J0696 08/29/2017 THER/PROPH/DIAG INJ SC/IM CPT-4: 20749 08/29/2017 DESTRUCT PREMALG LESION (Cryosurgery) CPT-4: 97534 ROUTINE VENIPUNCTURE CPT-4: 47210 06/27/2017 ASSAY OF FREE THYROXINE CPT-4: 61382 06/27/2017 ASSAY THYROID STIM HORMONE CPT-4: 12455 06/27/2017 COMPREHEN METABOLIC PANEL CPT-4: 65415 06/27/2017 COMPLETE CBC W/AUTO DIFF WBC CPT-4: 20591 06/27/2017 EXC TR-EXT B9+REECE 0.5 CM< CPT-4: 92638 01/24/2017 THER/PROPH/DIAG INJ SC/IM CPT-4: 95553 08/02/2016 DEXAMETHASONE SODIUM PHOS CPT-4: J1100 08/02/2016 DESTRUCT PREMALG LESION (Cryosurgery) CPT-4: 19259 EXC TR-EXT B9+REECE 0.5 CM< CPT-4: 75549 08/01/2016 AEROBIC WOUND CULTURE & STN CPT-4: 56992 07/06/2016 CEFTRIAXONE SODIUM INJECTION CPT-4: J0696 05/25/2016 THER/PROPH/DIAG INJ SC/IM CPT-4: 97038 05/25/2016 THER/PROPH/DIAG INJ SC/IM CPT-4: 45277 04/26/2016 DEXAMETHASONE SODIUM PHOS CPT-4: J1100 04/26/2016 CEFTRIAXONE SODIUM INJECTION CPT-4: J0696 04/26/2016 THER/PROPH/DIAG INJ SC/IM CPT-4: 58527 04/26/2016 THER/PROPH/DIAG INJ SC/IM CPT-4: 95281 02/09/2016 TRIAMCINOLONE ACET INJ NOS CPT-4: J3301 02/09/2016 URINALYSIS NONAUTO W/O SCOPE CPT-4: 79524 01/24/2016 URINE CULTURE/ COLONY COUNT CPT-4: 73542 01/24/2016 THER/PROPH/DIAG INJ SC/IM CPT-4: 93227 12/08/2015 TRIAMCINOLONE ACET INJ NOS CPT-4: J3301 12/08/2015 THER/PROPH/DIAG INJ SC/IM CPT-4: 13889 10/07/2015 TRIAMCINOLONE ACET INJ NOS CPT-4: J3301 10/07/2015 DESTRUCT PREMALG LESION (Cryosurgery) CPT-4: 64964 THER/PROPH/DIAG INJ SC/IM CPT-4: 29779 03/16/2015 METHYLPREDNISOLONE 40 MG INJ CPT-4: J1030 03/16/2015 DESTRUCT PREMALG LESION (Cryosurgery) CPT-4: 52540 THER/PROPH/DIAG INJ SC/IM CPT-4: 19728 09/11/2014 METHYLPREDNISOLONE 40 MG INJ CPT-4: J1030 09/11/2014 TRIAMCINOLONE ACET INJ NOS CPT-4: J3301 09/11/2014 CEFTRIAXONE SODIUM INJECTION CPT-4: J0696 09/11/2014 THER/PROPH/DIAG INJ SC/IM CPT-4: 38743 09/11/2014 ROUTINE VENIPUNCTURE CPT-4: 24909 08/27/2014 COMPREHEN METABOLIC PANEL CPT-4: 41910 08/27/2014 COMPLETE CBC W/AUTO DIFF WBC CPT-4: 95063 08/27/2014 LIPID PANEL CPT-4: 17346 08/27/2014 ROUTINE VENIPUNCTURE CPT-4: 53567 07/21/2014 ASSAY OF AMYLASE CPT-4: 42277 07/21/2014 ASSAY OF LIPASE CPT-4: 98268 07/21/2014 THER/PROPH/DIAG INJ SC/IM CPT-4: 82447 07/15/2014 TRIAMCINOLONE ACET INJ NOS CPT-4: J3301 07/15/2014 ROUTINE VENIPUNCTURE CPT-4: 79739 05/14/2014 ASSAY OF FREE THYROXINE CPT-4: 54359 05/14/2014 ASSAY THYROID STIM HORMONE CPT-4: 22954 05/14/2014 COMPREHEN METABOLIC PANEL CPT-4: 09010 05/14/2014 COMPLETE CBC W/AUTO DIFF WBC CPT-4: 63096 05/14/2014 LIPID PANEL CPT-4: 45683 05/14/2014 CEFTRIAXONE SODIUM INJECTION CPT-4: J0696 04/21/2014 THER/PROPH/DIAG INJ SC/IM CPT-4: 82036 04/21/2014 THER/PROPH/DIAG INJ SC/IM CPT-4: 90134 04/21/2014 TRIAMCINOLONE ACET INJ NOS CPT-4: J3301 04/21/2014 THER/PROPH/DIAG INJ SC/IM CPT-4: 18562 03/04/2014 METHYLPREDNISOLONE 40 MG INJ CPT-4: J1030 03/04/2014 TRIAMCINOLONE ACET INJ NOS CPT-4: J3301 03/04/2014 CEFTRIAXONE SODIUM INJECTION CPT-4: J0696 03/04/2014 THER/PROPH/DIAG INJ SC/IM CPT-4: 13141 03/04/2014 TDAP VACCINE 7 YRS/> IM CPT-4: 35674 02/27/2014 IMMUNIZATION ADMIN CPT-4: 05696 02/27/2014 DESTRUCT PREMALG LESION (Cryosurgery) CPT-4: 60415 DESTRUCT PREMALG LES 2-14 CPT-4: 37141 01/13/2014 THER/PROPH/DIAG INJ SC/IM CPT-4: 04780 10/21/2013 METHYLPREDNISOLONE 40 MG INJ CPT-4: J1030 10/21/2013 TRIAMCINOLONE ACET INJ NOS CPT-4: J3301 10/21/2013 CEFTRIAXONE SODIUM INJECTION CPT-4: J0696 08/27/2013 THER/PROPH/DIAG INJ SC/IM CPT-4: 91785 08/27/2013 THER/PROPH/DIAG INJ SC/IM CPT-4: 18254 08/27/2013 METHYLPREDNISOLONE 40 MG INJ CPT-4: J1030 08/27/2013 TRIAMCINOLONE ACET INJ NOS CPT-4: J3301 08/27/2013 THER/PROPH/DIAG INJ SC/IM CPT-4: 43067 06/23/2013 METHYLPREDNISOLONE 40 MG INJ CPT-4: J1030 06/23/2013 TRIAMCINOLONE ACET INJ NOS CPT-4: J3301 06/23/2013 THER/PROPH/DIAG INJ SC/IM CPT-4: 52690 05/26/2013 METHYLPREDNISOLONE 40 MG INJ CPT-4: J1030 05/26/2013 TRIAMCINOLONE ACET INJ NOS CPT-4: J3301 05/26/2013 ROUTINE VENIPUNCTURE CPT-4: 92768 03/05/2013 ASSAY OF FREE THYROXINE CPT-4: 08500 03/05/2013 ASSAY THYROID STIM HORMONE CPT-4: 34945 03/05/2013 COMPREHEN METABOLIC PANEL CPT-4: 83603 03/05/2013 COMPLETE CBC W/AUTO DIFF WBC CPT-4: 21857 03/05/2013 A1C GLYCOSYLATED HEMOGLOBIN TEST CPT-4: 68919 013 DRAIN/INJECT JOINT/BURSA CPT-4: 93398 12/04/2012 METHYLPREDNISOLONE 40 MG INJ CPT-4: J1030 12/04/2012 TRIAMCINOLONE ACET INJ NOS CPT-4: J3301 12/04/2012 CEFTRIAXONE SODIUM INJECTION CPT-4: J0696 11/21/2012 THER/PROPH/DIAG INJ SC/IM CPT-4: 07392 11/21/2012 THER/PROPH/DIAG INJ SC/IM CPT-4: 25932 10/14/2012 METHYLPREDNISOLONE 40 MG INJ CPT-4: J1030 10/14/2012 TRIAMCINOLONE ACET INJ NOS CPT-4: J3301 10/14/2012 URINALYSIS NONAUTO W/O SCOPE CPT-4: 40713 09/27/2012 ROUTINE VENIPUNCTURE CPT-4: 85708 09/25/2012 ASSAY OF FREE THYROXINE CPT-4: 96282 09/25/2012 ASSAY THYROID STIM HORMONE CPT-4: 30130 09/25/2012 COMPREHEN METABOLIC PANEL CPT-4: 46190 09/25/2012 COMPLETE CBC W/AUTO DIFF WBC CPT-4: 52080 09/25/2012 C-REACTIVE PROTEIN CPT-4: 07142 09/25/2012 THER/PROPH/DIAG INJ SC/IM CPT-4: 90669 08/29/2012 METHYLPREDNISOLONE 40 MG INJ CPT-4: J1030 08/29/2012 TRIAMCINOLONE ACET INJ NOS CPT-4: J3301 08/29/2012 DESTRUCT PREMALG LESION (Cryosurgery) CPT-4: 21653 THER/PROPH/DIAG INJ SC/IM CPT-4: 18805 05/06/2012 METHYLPREDNISOLONE 40 MG INJ CPT-4: J1030 05/06/2012 TRIAMCINOLONE ACET INJ NOS CPT-4: J3301 05/06/2012 VITAMIN B 12 FOLIC ACID CPT-4: 59085|24890 05/06/2012 RBC SED RATE AUTOMATED CPT-4: 29647 05/06/2012 ROUTINE VENIPUNCTURE CPT-4: 18214 05/06/2012 ASSAY OF FREE THYROXINE CPT-4: 21127 05/06/2012 ASSAY THYROID STIM HORMONE CPT-4: 96889 05/06/2012 COMPREHEN METABOLIC PANEL CPT-4: 18514 05/06/2012 COMPLETE CBC W/AUTO DIFF WBC CPT-4: 22927 05/06/2012 ASSAY OF BLOOD/URIC ACID CPT-4: 45843 05/06/2012 THER/PROPH/DIAG INJ SC/IM CPT-4: 02137 03/19/2012 KETOROLAC TROMETHAMINE INJ CPT-4: J1885 03/19/2012 KETOROLAC TROMETHAMINE INJ CPT-4: J1885 01/30/2012 THER/PROPH/DIAG INJ SC/IM CPT-4: 46798 01/30/2012 PROMETHAZINE HCL INJECTION CPT-4: J2550 01/30/2012 THER/PROPH/DIAG INJ SC/IM CPT-4: 01463 01/24/2012 METHYLPREDNISOLONE 40 MG INJ CPT-4: J1030 01/24/2012 TRIAMCINOLONE ACET INJ NOS CPT-4: J3301 01/24/2012 THER/PROPH/DIAG INJ SC/IM CPT-4: 65349 09/13/2011 KETOROLAC TROMETHAMINE INJ CPT-4: J1885 09/13/2011 THER/PROPH/DIAG INJ SC/IM CPT-4: 02926 09/13/2011 PROMETHAZINE HCL INJECTION CPT-4: J2550 09/13/2011 CEFTRIAXONE SODIUM INJECTION CPT-4: J0696 07/20/2011 THER/PROPH/DIAG INJ SC/IM CPT-4: 11071 07/20/2011 THER/PROPH/DIAG INJ SC/IM CPT-4: 80489 07/20/2011 METHYLPREDNISOLONE INJECTION CPT-4: J2930 07/20/2011 URINALYSIS NONAUTO W/O SCOPE CPT-4: 42688 05/09/2011 CEFTRIAXONE SODIUM INJECTION CPT-4: J0696 05/09/2011 THER/PROPH/DIAG INJ SC/IM CPT-4: 23744 05/09/2011 THER/PROPH/DIAG INJ SC/IM CPT-4: 48916 05/09/2011 PROMETHAZINE HCL INJECTION CPT-4: J2550 05/09/2011 HYDRATION IV INFUSION INIT CPT-4: 26186 05/09/2011 DESTRUCT PREMALG LESION (Cryosurgery) CPT-4: 08714 DESTRUCT PREMALG LES 2-14 CPT-4: 63281 07/19/2010 REMOVAL OF SKIN TAGS <W/15 CPT-4: 67991 05/30/2010 THER/PROPH/DIAG INJ SC/IM CPT-4: 82555 04/05/2010 CEFTRIAXONE SODIUM INJECTION CPT-4: J0696 04/05/2010 TRIAMCINOLONE ACET INJ NOS CPT-4: J3301 04/05/2010 METHYLPREDNISOLONE 40 MG INJ CPT-4: J1030 04/05/2010 THER/PROPH/DIAG INJ SC/IM CPT-4: 55481 04/05/2010 TRIAMCINOLONE ACET INJ NOS CPT-4: J3301 03/09/2010 METHYLPREDNISOLONE 40 MG INJ CPT-4: J1030 03/09/2010 THER/PROPH/DIAG INJ SC/IM CPT-4: 81024 03/09/2010 THER/PROPH/DIAG INJ SC/IM CPT-4: 64264 03/09/2010 CEFTRIAXONE SODIUM INJECTION CPT-4: J0696 03/09/2010 Vital Signs Date Vital 10/07/2019 Blood Pressure 1: 134/82 Code: 8480-6 Heart Rate 1: 105 bpm Respiratory Rate: 17 bpm SpO2: 96% Temperature: 36.8 (C) / 98.2 (F) We ight: 198 lbs 09/30/2019 Blood Pressure 1: 132/80 Code: 8480-6 BMI: 35.8 Code: 69920-1 Heart Rate 1: 88 bpm Height: 5'4" Respiratory Rate: 20 bpm SpO2: 95% Tempera ture: 36.9 (C) / 98.5 (F) Weight: 210 lbs 05/28/2019 Blood Pressure 1: 126/82 Code: 8480-6 BMI: 35.0 Code: 15123-8 Heart Rate 1: 88 bpm Height: 5'4" [...] 1: 128/90 Code: 8480-6 BMI: 37.2 Code: 36001-4 Heart Rate 1: 84 bpm Height: 5'4" Respiratory Rate: 20 bpm SpO2: 95% Tempera ture: 36.6 (C) / 97.8 (F) Weight: 217 lbs 08/27/2018 Blood Pressure 1: 128/88 Code: 8480-6 BMI: 38.3 Code: 50071-8 Heart Rate 1: 84 bpm Height: 5'4" [...] 1: 119/72 Code: 8480-6 BMI: 37.4 Code: 40009-6 Heart Rate 1: 82 bpm Height: 5'4" Respiratory Rate: 12 bpm SpO2: 94% Tempera ture: 35.2 (C) / 95.4 (F) Weight: 218 lbs 12/18/2017 Blood Pressure 1: 128/86 Code: 8480-6 BMI: 37.8 Code: 08806-1 Heart Rate 1: 84 bpm Height: 5'4" [...] 1: 128/82 Code: 8480-6 BMI: 35.5 Code: 13869-9 Heart Rate 1: 84 bpm Height: 5'4" [...] 1: 128/82 Code: 8480-6 BMI: 30.2 Code: 87907-0 Heart Rate 1: 80 bpm Height: 5'4" [...] 1: 128/86 Code: 8480-6 BMI: 32.8 Code: 36071-0 Heart Rate 1: 66 bpm Height: 5'4" Respiratory Rate: 18 bpm Temperature: 36 .3 (C) / 97.3 (F) Weight: 191 lbs 06/23/2013 Blood Pressure 1: 132/94 Code: 8480-6 BMI: 34.0 Code: 33974-3 Heart Rate 1: 84 bpm Height: 5'4" Respiratory Rate: 20 bpm Temperature: 36 .8 (C) / 98.2 (F) Weight: 198 lbs 05/26/2013 Blood Pressure 1: 114/80 Code: 8480-6 BMI: 35.0 Code: 15725-7 Heart Rate 1: 80 bpm Height: 5'4" Respiratory Rate: 20 bpm Temperature: 36 .4 (C) / 97.6 (F) Weight: 204 lbs 04/16/2013 Blood Pressure 1: 114/82 Code: 8480-6 BMI: 36.7 Code: 93197-3 Heart Rate 1: 84 bpm Height: 5'4" Respiratory Rate: 20 bpm Temperature: 36 .7 (C) / 98.0 (F) Weight: 214 lbs 03/05/2013 Blood Pressure 1: 136/90 Code: 8480-6 BMI: 37.1 Code: 17331-9 Heart Rate 1: 84 bpm Height: 5'4" [...] 1: 168/114 Code: 8480-6 BMI: 36.2 Code: 59069-4 Heart Rate 1: 104 bpm Height: 5'4" Respiratory Rate: 20 bpm Temperature: 36 .8 (C) / 98.2 (F) Weight: 211 lbs 11/22/2012 Blood Pressure 1: 128/90 Code: 8480-6 Heart Rate 1: 88 bpm Respiratory Rate: 20 bpm SpO2: 96% Temperature: 36.8 (C) / 98.2 (F) 11/21/2012 Blood Pressure 1: 146/100 Code: 8480-6 BMI: 35.7 Code: 69419-8 Heart Rate 1: 96 bpm Height: 5'4" [...] 1: 138/100 Code: 8480-6 BMI: 35.7 Code: 92630-0 Heart Rate 1: 96 bpm Height: 5'4" Respiratory Rate: 20 bpm Temperature: 36 .8 (C) / 98.2 (F) Weight: 208 lbs 05/06/2012 Blood Pressure 1: 154/102 Code: 8480-6 BMI: 34.7 Code: 73292-5 Heart Rate 1: 116 bpm Height: 5'4" Respiratory Rate: 20 bpm Temperature: 36 .8 (C) / 98.2 (F) Weight: 202 lbs 04/03/2012 Blood Pressure 1: 134/94 Code: 8480-6 BMI: 34.8 Code: 90295-3 Heart Rate 1: 108 bpm Height: 5'4" Respiratory Rate: 20 bpm Temperature: 36 .8 (C) / 98.2 (F) Weight: 203 lbs 03/19/2012 Blood Pressure 1: 148/106 Code: 8480-6 BMI: 35.0 Code: 02141-2 Heart Rate 1: 100 bpm Height: 5'4" Respiratory Rate: 20 bpm Temperature: 36 .6 (C) / 97.9 (F) Weight: 204 lbs 02/22/2012 Blood Pressure 1: 146/94 Code: 8480-6 He art Rate 1: 88 bpm 02/21/2012 Blood Pressure 1: 172/120 Code: 8480-6 B lood Pressure 2: 152/106 Code: 8480-6 Heart Rate 1: 116 bpm 02/20/2012 Blood Pressure 1: 160/100 Code: 8480-6 BMI: 32.0 Code: 52176-8 Heart Rate 1: 84 bpm Height: 5'7" Temperature: 36.5 (C) / 97.7 (F) Weight: 204 lbs 01/30/2012 Blood Pressure 1: 152/110 Code: 8480-6 BMI: 32.0 Code: 76368-1 Heart Rate 1: 116 bpm Height: 5'7" Respiratory Rate: 20 bpm Temperature: 37 .0 (C) / 98.6 (F) Weight: 204 lbs 01/24/2012 Blood Pressure 1: 146/100 Code: 8480-6 BMI: 32.0 Code: 32862-9 Heart Rate 1: 100 bpm Height: 5'7" Respiratory Rate: 20 bpm Temperature: 36 .7 (C) / 98.0 (F) Weight: 204 lbs 01/10/2012 Blood Pressure 1: 156/94 Code: 8480-6 BMI: 32.6 Code: 24686-6 Heart Rate 1: 72 bpm Height: 5'7" Respiratory Rate: 20 bpm Temperature: 36 .8 (C) / 98.2 (F) Weight: 208 lbs 12/11/2011 Blood Pressure 1: 146/100 Code: 8480-6 Heart Rat e 1: 116 bpm Height: 5'7" Respiratory Rate: 20 bpm Temperature: 36.9 (C) / 98.4 (F) We ight: 11/09/2011 Blood Pressure 1: 148/96 Code: 8480-6 BMI: 32.1 Code: 77577-0 Heart Rate 1: 116 bpm Height: 5'7" Respiratory Rate: 20 bpm Temperature: 36 .7 (C) / 98.0 (F) Weight: 205 lbs 09/13/2011 Blood Pressure 1: 126/88 Code: 8480-6 Heart Rate 1: 88 bpm Height: 5'7" Respiratory Rate: 20 bpm Temperature: 36.9 (C) / 98.4 (F) We ight: 08/31/2011 Blood Pressure 1: 118/82 Code: 8480-6 BMI: 32.0 Code: 89967-0 Heart Rate 1: 80 bpm Height: 5'7" Temperature: 36.4 (C) / 97.6 (F) Weight: 204 lbs 07/06/2011 Blood Pressure 1: 128/86 Code: 8480-6 BMI: 30.9 Code: 80884-7 Heart Rate 1: 92 bpm Height: 5'7" Respiratory Rate: 20 bpm Temperature: 36 .9 (C) / 98.4 (F) Weight: 197 lbs 06/06/2011 Blood Pressure 1: 112/74 Code: 8480-6 BMI: 31.0 Code: 86151-2 Heart Rate 1: 72 bpm Height: 5'7" [...] 1: 128/92 Code: 8480-6 BMI: 33.6 Code: 89566-6 Heart Rate 1: 104 bpm Height: 5'4" [...] Check-up Encounters Encounter Performer Location Codes Date ([id number]) OFFICE/OUTPATIENT VISIT EST Diagnosis: Ingrowing nail[ICD10: L60.0] Diagnosis: Type 2 diabetes mellitus with hyperglycemia[ICD10: E11.65] Kathleen Zuniga MARÍA ELENA Hicks RosumYESIVICTORINO [employer] CPT-4: 32541 10/07/2019 ([id number]) OFFICE/OUTPATIENT VISIT EST Diagnosis: DM w/o complication type II, uncontrolled[ICD10: E11.65] Diagnosis: Hypertriglyceridemia[ICD10: E78.1] Diagnosis: Essential hypertension[ICD10: I10] María Elena JEAN [employer] SEAMUSYESIVICTORINO [employer] CPT-4: 49331 09/30/2019 ([id number]) NURSE/OUTPATIENT VISIT EST Diagnosis: Essential (primary) hypertension[ICD10: I10] Diagnosis: Cervicalgia[ICD10: M54.2] Diagnosis: Hyperglycemia, unspecified[ICD10: R73.9] Diagnosis: Mixed hyperlipidemia[ICD10: E78.2] María Elena JEAN [employer] CPT-4: 80268 09/29/2019 ([id number]) OFFICE/OUTPATIENT VISIT EST Diagnosis: Essential (primary) hypertension[ICD10: I10] Diagnosis: Fall from bed, sequela[ICD10: W06.XXXS] María Elena Hicks SEAMUSDAWN [employer] CPT-4: 60823 05/28/2019 ([id number]) NURSE/OUTPATIENT VISIT EST Diagnosis: Essential (primary) hypertension[ICD10: I10] María Elena Hicks SEAMUSDAWN [employer] CPT-4: 73471 05/19/2019 ([id number]) OFFICE/OUTPATIENT VISIT EST Diagnosis: Essential (primary) hypertension[ICD10: I10] Diagnosis: Type 2 diabetes mellitus with hyperglycemia[ICD10: E11.65] Diagnosis: Intervertebral disc disorders with radiculopathy, 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] Diagnosis: Hormone replacement therapy[ICD10: Z79.890] María Elena Hicks [employer] CPT-4: 98390 01/22/2019 ([id number]) OFFICE/OUTPATIENT VISIT EST Diagnosis: Essential (primary) hypertension[ICD10: I10] Diagnosis: Type 2 diabetes mellitus with hyperglycemia[ICD10: E11.65] María Elena [facility] CPT-4: 62698 09/30/2018 ([id number]) OFFICE/OUTPATIENT VISIT EST Diagnosis: Pain in left elbow[ICD10: M25.522] Diagnosis: Acute stress reaction[ICD10: F43.0] Diagnosis: Primary insomnia[ICD10: F51.01] Diagnosis: Abnormal weight gain[ICD10: R63.5] María Elena Td [facility] CPT-4: 25886 08/27/2018 ([id number]) OFFICE/OUTPATIENT VISIT EST Diagnosis: Acute recurrent sinusitis, unspecified[ICD10: J01.91] Diagnosis: Follicular disorder, unspecified[ICD10: L73.9] Diagnosis: Tinea corporis[ICD10: B35.4] María Elena [facility] CPT-4: 61088 08/09/2018 ([id number]) OFFICE/OUTPATIENT VISIT EST Diagnosis: Tinea corporis[ICD10: B35.4] Diagnosis: Anxiety disorder, unspecified[ICD10: F41.9] Diagnosis: Menopausal and female climacteric states[ICD10: N95.1] María Elena [facility] CPT-4: 47368 07/22/2018 ([id number]) NURSE/OUTPATIENT VISIT EST Diagnosis: Cellulitis of right toe[ICD10: L03.031] María Elenagael Appiah KYLAH [facility] CPT-4: 42467 06/19/2018 ([id number]) OFFICE/OUTPATIENT VISIT EST Diagnosis: Cellulitis of right toe[ICD10: L03.031] Kathleen Tenadi KYLAH [facility] CPT-4: 06427 06/17/2018 ([id number]) OFFICE/OUTPATIENT VISIT EST Diagnosis: Migraine without aura, intractable, without status migrainosus[ICD10: G43.019] Diagnosis: Zoster without complications[ICD10: B02.9] Kathleen APPIAH DO [facility] CPT-4: 92800 05/16/2018 ([id number]) OFFICE/OUTPATIENT VISIT EST Diagnosis: Cellulitis of right lower limb[ICD10: L03.115] Kathleen APPIA[facility] DO [facility] CPT-4: 29487 03/20/2018 ([id number]) OFFICE/OUTPATIENT VISIT EST Diagnosis: Cellulitis of right lower limb[ICD10: L03.115] Kathleen APPIAH DO [facility] CPT-4: 51331 03/18/2018 ([id number]) OFFICE/OUTPATIENT VISIT EST Diagnosis: Cellulitis of right lower limb[ICD10: L03.115] Kathleen APPIAH DO [facility] CPT-4: 68886 03/15/2018 ([id number]) OFFICE/OUTPATIENT VISIT EST Diagnosis: Acute sinusitis, unspecified[ICD10: J01.90] Kathleen APPIA[facility] DO [facility] CPT-4: 39860 02/11/2018 ([id number]) NURSE/OUTPATIENT VISIT EST Diagnosis: Otitis media, unspecified, right ear[ICD10: H66.91] María Elena [facility] DO [facility] CPT-4: 19499 02/01/2018 ([id number]) OFFICE/OUTPATIENT VISIT EST Diagnosis: Acute suppurative otitis media without spontaneous rupture of ear drum, left ear[ICD10: H66.002] Diagnosis: Abnormal weight gain[ICD10: R63.5] Diagnosis: Intervertebral disc disorders with radiculopathy, 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] Kathleen APPIAH DO [facility] CPT-4: 99 214 01/30/2018 ([id number]) PREV VISIT EST AGE 40-64 Diagnosis: Encounter for general adult medical examination without abnormal findings[ICD10: Z00.00] Diagnosis: Essential (primary) hypertension[ICD10: I10] Diagnosis: Mixed hyperlipidemia[ICD10: E78.2] Diagnosis: Type 2 diabetes mellitus with hyperglycemia[ICD10: E11.65] Diagnosis: 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] María Elena APPIA[facility] DO [facility] CPT-4: 21616 12/18/2017 ([id number]) OFFICE/OUTPATIENT VISIT EST Diagnosis: Cellulitis of right toe[ICD10: L03.031] Diagnosis: Mixed hyperlipidemia[ICD10: E78.2] Diagnosis: Essential (primary) hypertension[ICD10: I10] Diagnosis: Hyperglycemia, unspecified[ICD10: R73.9] Diagnosis: Nontoxic goiter, 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] María Elena [facility] DO [facility] CPT-4: 24826 12/10/2017 ([id number]) OFFICE/OUTPATIENT VISIT EST Diagnosis: Cellulitis of right toe[ICD10: L03.031] Diagnosis: Acute sinusitis, unspecified[ICD10: J01.90] Kathleen APPIAH DO [facility] CPT-4: 92344 12/07/2017 OFFICE/OUTPATIENT VISIT EST Diagnosis: Acute maxillary sinusitis, unspecified[ICD10: J01.00] Kathleen APPIAH DO [facility] CPT-4: 07008 10/08/2017 ([id number]) OFFICE/OUTPATIENT VISIT EST Diagnosis: Cellulitis of left toe[ICD10: L03.032] María Elena [facility] DO [facility] CPT-4: 48814 09/21/2017 ([id number]) OFFICE/OUTPATIENT VISIT EST Diagnosis: Insomnia, unspecified[ICD10: G47.00] Diagnosis: Major depressive disorder, single episode, unspecified[ICD10: F32.9] Diagnosis: Anxiety disorder, unspecified[ICD10: F41.9] Diagnosis: Cellulitis of left toe[ICD10: L03.032] Diagnosis: Snoring[ICD10: R06.83] Kathleen APPIAH DO [facility] CPT-4: 16747 09/20/2017 ([id number]) OFFICE/OUTPATIENT VISIT EST Diagnosis: Cellulitis of left toe[ICD10: L03.032] María Elena APPIAH DO [facility] CPT-4: 43578 07/19/2017 OFFICE/OUTPATIENT VISIT EST Diagnosis: Chronic sinusitis, unspecified[ICD10: J32.9] Diagnosis: Generalized hyperhidrosis[ICD10: R61] Kathleen APPIAH [employer] [facility] CPT-4: 48541 06/27/2017 ([id number]) OFFICE/OUTPATIENT VISIT EST Diagnosis: Intervertebral disc disorders with radiculopathy, 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] Diagnosis: Primary insomnia[ICD10: F51.01] Diagnosis: Other fatigue[ICD10: R53.83] María Elena APPIA[facility] DO [facility] CPT-4: 20516 04/10/2017 ([id number]) OFFICE/OUTPATIENT VISIT EST Diagnosis: Primary insomnia[ICD10: F51.01] Diagnosis: Localized edema[ICD10: R60.0] Diagnosis: 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] María Elena [facility] DO [facility] CPT-4: 66898 12/13/2016 ([id number]) OFFICE/OUTPATIENT VISIT EST Diagnosis: Primary insomnia[ICD10: F51.01] Diagnosis: Cyanosis[ICD10: R23.0] María Elena Bazzi [employer] CPT-4: 22446 11/01/2016 ([id number]) PREV VISIT EST AGE 40-64 Diagnosis: Encounter for gynecological examination (general) (routine) without abnormal findings[ICD10: Z01.419] Diagnosis: Encounter for routine child health examination without abnormal findings[ICD10: Z00.129] María Elena APPIAH [employer] [facility] CPT-4: 88685 10/17/2016 ([id number]) OFFICE/OUTPATIENT VISIT EST Diagnosis: Other seasonal allergic rhinitis[ICD10: J30.2] María Elena APPIAH [employer] [facility] CPT-4: 89631 10/10/2016 ([id number]) OFFICE/OUTPATIENT VISIT EST Diagnosis: Pain in left arm[ICD10: M79.602] Diagnosis: Contact with and (suspected) exposure to potentially hazardous body fluids[ICD10: Z77.21] Diagnosis: 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, 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] Diagnosis: Unspecified open wound, right foot, sequela[ICD10: S91.301S] María Elena APPIAH DO [facility] CPT-4: 53286 09/19/2016 ([id number]) OFFICE/OUTPATIENT VISIT EST Diagnosis: Chronic sinusitis, unspecified[ICD10: J32.9] Diagnosis: Allergic rhinitis due to pollen[ICD10: J30.1] María Elena APPIA[facility] DO [facility] CPT-4: 79672 08/24/2016 ([id number]) OFFICE/OUTPATIENT VISIT EST Diagnosis: Acute bronchitis, unspecified[ICD10: J20.9] María Elena APPIAH DO [facility] CPT-4: 74654 08/16/2016 ([id number]) OFFICE/OUTPATIENT VISIT EST Diagnosis: Otitis media, unspecified, right ear[ICD10: H66.91] Diagnosis: Acute bronchitis, unspecified[ICD10: J20.9] María Elena [facility] CPT-4: 39788 08/10/2016 ([id number]) OFFICE/OUTPATIENT VISIT EST Diagnosis: Acute recurrent sinusitis, unspecified[ICD10: J01.91] Diagnosis: Allergic rhinitis due to pollen[ICD10: J30.1] María Elena APPIAH [employer] [facility] CPT-4: 88795 08/02/2016 ([id number]) OFFICE/OUTPATIENT VISIT EST Diagnosis: Pain in unspecified joint[ICD10: M25.50] María Elena APPIAH DO [facility] CPT-4: 81597 07/27/2016 OFFICE/OUTPATIENT VISIT EST Diagnosis: 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] Diagnosis: Acute recurrent sinusitis, unspecified[ICD10: J01.91] Diagnosis: Other fatigue[ICD10: R53.83] Diagnosis: Primary insomnia[ICD10: F51.01] Diagnosis: Pain in unspecified joint[ICD10: M25.50] María Elena APPIAH [employer] [facility] CPT-4: 08443 07/20/2016 ([id number]) OFFICE/OUTPATIENT VISIT EST Diagnosis: Blister (nonthermal), left great toe, initial encounter[ICD10: S90.422A] Loan APPIAH DO [facility] CPT-4: 08193 ([id number]) OFFICE/OUTPATIENT VISIT EST Diagnosis: Acute recurrent sinusitis, unspecified[ICD10: J01.91] María Elena APPIAH DO [facility] CPT-4: 16707 05/25/2016 ([id number]) OFFICE/OUTPATIENT VISIT EST Diagnosis: Acute sinusitis, unspecified[ICD10: J01.90] María Elena APPIAH DO [facility] CPT-4: 04014 04/26/2016 ([id number]) OFFICE/OUTPATIENT VISIT EST Diagnosis: Flushing[ICD10: R23.2] Diagnosis: Primary insomnia[ICD10: F51.01] María Elena APPIAH DO [facility] CPT-4: 51747 03/02/2016 ([id number]) OFFICE/OUTPATIENT VISIT EST Diagnosis: Other seasonal allergic rhinitis[ICD10: J30.2] Loan APPIAH DO [facility] CPT-4: 12408 02/09/2016 ([id number]) OFFICE/OUTPATIENT VISIT EST Diagnosis: Primary insomnia[ICD10: F51.01] Diagnosis: Urinary tract infection, site not specified[ICD10: N39.0] María Elena APPIAH DO [facility] CPT-4: 65024 01/24/2016 ([id number]) OFFICE/OUTPATIENT VISIT EST Diagnosis: Other specified disorders of Eustachian tube, bilateral[ICD10: H69.83] Diagnosis: Allergic rhinitis, unspecified[ICD10: J30.9] Loan APPIAH DO [facility] CPT-4: 35059 12/23/2015 ([id number]) OFFICE/OUTPATIENT VISIT EST Diagnosis: Acute recurrent sinusitis, unspecified[ICD10: J01.91] Diagnosis: 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] Diagnosis: Allergic rhinitis, unspecified[ICD10: J30.9] María Elena APPIAH DO [facility] CPT-4: 23335 12/08/2015 ([id number]) OFFICE/OUTPATIENT VISIT EST Diagnosis: Allergic rhinitis, unspecified[ICD10: J30.9] Diagnosis: Pain in unspecified joint[ICD10: M25.50] María Elena APPIAH DO [facility] CPT-4: 79539 10/07/2015 ([id number]) OFFICE/OUTPATIENT VISIT EST Diagnosis: Essential (primary) hypertension[ICD10: I10] María Elena APPIAH DO [facility] CPT-4: 66359 10/06/2015 OFFICE/OUTPATIENT VISIT EST Diagnosis: Localized enlarged lymph nodes[ICD10: R59.0] Diagnosis: Local infection of the skin and subcutaneous tissue, unspecified[ICD10: L08.9] June VelozAlbertadaniella APPIAH DO [facility] CPT- 4: 45488 09/14/2015 ([id number]) OFFICE/OUTPATIENT VISIT EST Diagnosis: Essential (primary) hypertension[ICD10: I10] Diagnosis: Actinic keratosis[ICD10: L57.0] María Elena APPIAH DO [facility] CPT-4: 07329 09/07/2015 ([id number]) OFFICE/OUTPATIENT VISIT EST Diagnosis: Essential (primary) hypertension[ICD10: I10] Diagnosis: Acute stress reaction[ICD10: F43.0] María Elena APPIAH DO [facility] CPT-4: 62246 08/18/2015 ([id number]) OFFICE/OUTPATIENT VISIT EST Diagnosis: Essential (primary) hypertension[ICD10: I10] María Elena APPIAH DO [facility] CPT-4: 07638 07/07/2015 ([id number]) OFFICE/OUTPATIENT VISIT EST Diagnosis: Essential (primary) hypertension[ICD10: I10] María Elena APPIAH DO [facility] CPT-4: 35851 06/24/2015 ([id number]) OFFICE/OUTPATIENT VISIT EST Diagnosis: Essential (primary) hypertension[ICD10: I10] María Elena APPIAH DO [facility] CPT-4: 63865 06/21/2015 ([id number]) OFFICE/OUTPATIENT VISIT EST Diagnosis: Essential (primary) hypertension[ICD10: I10] Diagnosis: Mixed hyperlipidemia[ICD10: E78.2] Diagnosis: Acute stress reaction[ICD10: F43.0] Diagnosis: Primary insomnia[ICD10: F51.01] María Elena APPIAH [facility] CPT-4: 61765 06/16/2015 ([id number]) OFFICE/OUTPATIENT VISIT EST Diagnosis: INSOMNIA NOS[ICD9: 780.52] Diagnosis: HYPERTENSION[ICD9: 401.9] Diagnosis: Stress reaction[ICD9: 308.9] María Elena APPIAH [facility] CPT-4: 08622 06/02/2015 ([id number]) OFFICE/OUTPATIENT VISIT EST Diagnosis: HYPERTENSION[ICD9: 401.9] Diagnosis: Stress reaction[ICD9: 308.9] María Elena APPIAH [facility] CPT-4: 06695 05/20/2015 ([id number]) OFFICE/OUTPATIENT VISIT EST Diagnosis: Skin lesion[ICD9: 709.9] 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] María Elena ELLISLINE Fabiola [facility] CPT-4: 05909 05/10/2015 ([id number]) OFFICE/OUTPATIENT VISIT EST Diagnosis: SINUSITIS, ACUTE[ICD9: 461.9] Diagnosis: ALLERGIC RHINITIS[ICD9: 477.9] Diagnosis: DERMATITIS NOS[ICD9: 692.9] María Elena ELLISLINE LucioJj Marcos ORI [facility] CPT-4: 04304 03/16/2015 OFFICE/OUTPATIENT VISIT EST Diagnosis: Otitis media[ICD9: 382.9] Diagnosis: SINUSITIS, ACUTE[ICD9: 461.9] June Flores MARÍA ELENA LucioJj [facility] CPT-4: 59267 09/11/2014 ([id number]) OFFICE/OUTPATIENT VISIT EST Diagnosis: HYPERLIPIDEMIA NEC/NOS[ICD9: 272.4] María Elena Seamusdawn COLON LucioJj [facility] CPT-4: 03859 08/31/2014 ([id number]) OFFICE/OUTPATIENT VISIT EST Diagnosis: - I - HYPERTENSION[ICD9: 401.9] Diagnosis: HYPERLIPIDEMIA NEC/NOS[ICD9: 272.4] María Elena APPIAH DO [facility] CPT-4: 61287 08/27/2014 ([id number]) OFFICE/OUTPATIENT VISIT EST Diagnosis: ABDOMINAL PAIN[ICD9: 789.00] Diagnosis: DYSPEPSIA[ICD9: 536.8] Diagnosis: Thoracic back pain[ICD9: 724.1] María Elena APPIAH DO [facility] CPT-4: 05090 07/21/2014 ([id number]) OFFICE/OUTPATIENT VISIT EST Diagnosis: ALLERGIC RHINITIS[ICD9: 477.9] María Elena APPIAH DO [facility] CPT-4: 14548 07/15/2014 ([id number]) OFFICE/OUTPATIENT VISIT EST Diagnosis: EDEMA[ICD9: 782.3] Diagnosis: Chronic insomnia[ICD9: 780.52] María Elena APPIAH DO [facility] CPT-4: 99816 05/18/2014 ([id number]) OFFICE/OUTPATIENT VISIT EST Diagnosis: Thyromegaly[ICD9: 240.9] Diagnosis: - I - HYPERTENSION[ICD9: 401.9] Diagnosis: ROUTINE MEDICAL EXAM[ICD9: V70.0] Diagnosis: EDEMA[ICD9: 782.3] María Elena APPIAH DO [facility] CPT-4: 70306 05/14/2014 OFFICE/OUTPATIENT VISIT EST Diagnosis: BRONCHITIS, ACUTE[ICD9: 466.0] Diagnosis: SINUSITIS, ACUTE[ICD9: 461.9] María Elena APPIAH DO [facility] CPT-4: 56803 04/21/2014 OFFICE/OUTPATIENT VISIT EST Diagnosis: SINUSITIS, ACUTE[ICD9: 461.9] June Flores MARÍA ELENA APPIAH DO [facility] CPT-4: 74566 03/04/2014 ([id number]) OFFICE/OUTPATIENT VISIT EST Diagnosis: VACCINE FOR TDAP[ICD10: Z23] María Elena APPIAH [facility] CPT-4: 43539 02/27/2014 ([id number]) OFFICE/OUTPATIENT VISIT EST Diagnosis: Seborrheic keratoses, inflamed[ICD9: 702.11] Diagnosis: ACTINIC KERATOSIS[ICD9: 702.0] Diagnosis: INSOMNIA NOS[ICD9: 780.52] María Elena PANDYA [facility] CPT-4: 89374 01/13/2014 OFFICE/OUTPATIENT VISIT EST Diagnosis: EUSTACHIAN TUBE DYSFUNCTION[ICD9: 381.81] Diagnosis: ALLERGIC RHINITIS[ICD9: 477.9] Diagnosis: Serous otitis media[ICD9: 381.4] María Elena APPIAH [facility] CPT-4: 13904 12/24/2013 ([id number]) OFFICE/OUTPATIENT VISIT EST Diagnosis: SINUSITIS, ACUTE[ICD9: 461.9] Diagnosis: ALLERGIC RHINITIS[ICD9: 477.9] Diagnosis: EUSTACHIAN TUBE DYSFUNCTION[ICD9: 381.81] María [facility] CPT-4: 05625 11/12/2013 ([id number]) OFFICE/OUTPATIENT VISIT EST Diagnosis: ALLERGIC RHINITIS[ICD9: 477.9] Diagnosis: SINUSITIS, ACUTE[ICD9: 461.9] María Elena APPIAH [facility] CPT-4: 73615 10/21/2013 ([id number]) OFFICE/OUTPATIENT VISIT EST Diagnosis: ASYMPTOMATIC VARICOSE VEINS[ICD9: 454.9] Diagnosis: INSOMNIA NOS[ICD9: 780.52] María Elena Valdes KRISTYN [facility] CPT-4: 06611 09/22/2013 OFFICE/OUTPATIENT VISIT EST Diagnosis: SINUSITIS, ACUTE[ICD9: 461.9] June Flores MARÍA ELENA APPIAH [facility] CPT-4: 10532 08/27/2013 ([id number]) OFFICE/OUTPATIENT VISIT EST Diagnosis: CEPHALGIA[ICD9: 784.0] Diagnosis: CEPHALGIA, TENSION[ICD9: 307.81] 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] María Elena APPIAH [facility] CPT-4: 12694 08/04/2013 ([id number]) OFFICE/OUTPATIENT VISIT EST Diagnosis: Cervicalgia[ICD9: 723.1] Diagnosis: SPASM OF MUSCLE[ICD9: 728.85] Diagnosis: CEPHALGIA, TENSION[ICD9: 307.81] María Elena APPIAH DO [facility] CPT-4: 27001 07/23/2013 ([id number]) OFFICE/OUTPATIENT VISIT EST Diagnosis: EUSTACHIAN TUBE DYSFUNCTION[ICD9: 381.81] Diagnosis: ALLERGIC RHINITIS[ICD9: 477.9] María Elena APPIAH DO [facility] CPT-4: 19448 06/23/2013 ([id number]) OFFICE/OUTPATIENT VISIT EST Diagnosis: ALLERGIC RHINITIS[ICD9: 477.9] Diagnosis: ACUTE SEROUS OTITIS MEDIA[ICD9: 381.01] Diagnosis: EUSTACHIAN TUBE DYSFUNCTION[ICD9: 381.81] María Elena APPIAH DO [facility] CPT-4: 22172 05/26/2013 ([id number]) OFFICE/OUTPATIENT VISIT EST Diagnosis: HYPERTENSION[ICD9: 401.9] Diagnosis: EDEMA[ICD9: 782.3] Diagnosis: Serous otitis media[ICD9: 381.4] María Elena APPIAH DO [facility] CPT-4: 25218 04/16/2013 ([id number]) OFFICE/OUTPATIENT VISIT EST Diagnosis: SINUSITIS, ACUTE[ICD9: 461.9] Diagnosis: ALLERGIC RHINITIS[ICD9: 477.9] Diagnosis: EDEMA[ICD9: 782.3] Diagnosis: Thyromegaly[ICD9: 240.9] Diagnosis: MALAISE AND FATIGUE[ICD9: 780.79] María Elena APPIAH DO [facility] CPT-4: 47035 03/05/2013 ([id number]) OFFICE/OUTPATIENT VISIT EST Diagnosis: PAIN, LOWER BACK[ICD9: 724.2] Diagnosis: SPASM OF MUSCLE[ICD9: 728.85] María Elena APPIAH DO [facility] CPT-4: 88268 12/23/2012 OFFICE/OUTPATIENT VISIT EST Diagnosis: Low back pain[ICD9: 724.2] Lashawn Babar MARÍA ELENA S. KRISTYN [facility] CPT-4: 04306 12/16/2012 ([id number]) OFFICE/OUTPATIENT VISIT EST Diagnosis: PAIN, LOWER BACK[ICD9: 724.2] Diagnosis: SCIATICA[ICD9: 724.3] Diagnosis: Lumbar herniated disc[ICD9: 722.10] María Elena COLON LucioJj TD GARIBAY [facility] CPT-4: 25339 12/09/2012 ([id number]) OFFICE/OUTPATIENT VISIT EST Diagnosis: PAIN, LOWER BACK[ICD9: 724.2] Diagnosis: SCIATICA[ICD9: 724.3] Diagnosis: LUMBAR DISC DISPLACEMENT[ICD9: 722.10] María Elena MARIN LucioJj TD [facility] CPT-4: 50136 12/04/2012 OFFICE/OUTPATIENT VISIT EST Diagnosis: Pneumonia[ICD9: 486] Mary JUARES LucioJj [facility] CPT-4: 23864 11/22/2012 ([id number]) OFFICE/OUTPATIENT VISIT EST Diagnosis: PNEUMONIA, ORGANISM[ICD9: 486] Diagnosis: Exacerbation of RAD (reactive airway disease)[ICD9: 493.92] María Elena JUARES LucioJj TD [facility] CPT-4: 02966 11/21/2012 OFFICE/OUTPATIENT VISIT EST Diagnosis: HYPERTENSION[ICD9: 401.9] Diagnosis: Cephalgia[ICD9: 784.0] Lashawn Hicks SEAMUSYESIVICTORINO GARIBAY [facility] CPT-4: 03366 10/29/2012 ([id number]) OFFICE/OUTPATIENT VISIT EST Diagnosis: MALAISE AND FATIGUE[ICD9: 780.79] Diagnosis: ARTHRALGIA-MULTIPLE SITES[ICD9: 719.49] María Elena REED LucioJj TD [facility] CPT-4: 46179 10/14/2012 ([id number]) OFFICE/OUTPATIENT VISIT EST Diagnosis: URINARY FREQUENCY[ICD9: 788.41] María Elena UJARES LucioJj TD [facility] CPT-4: 13653 09/27/2012 ([id number]) OFFICE/OUTPATIENT VISIT EST Diagnosis: MALAISE AND FATIGUE[ICD9: 780.79] Diagnosis: ARTHRALGIA-MULTIPLE SITES[ICD9: 719.49] María Elena APPIAH [facility] CPT-4: 23870 09/25/2012 ([id number]) OFFICE/OUTPATIENT VISIT EST Diagnosis: SINUSITIS, ACUTE[ICD9: 461.9] Diagnosis: EUSTACHIAN TUBE DYSFUNCTION[ICD9: 381.81] María Elena APPIAH [facility] CPT-4: 08899 08/29/2012 OFFICE/OUTPATIENT VISIT EST Diagnosis: ACTINIC KERATOSIS[ICD9: 702.0] Diagnosis: Inflamed seborrheic keratosis[ICD9: 702.11] Diagnosis: Skin cancer of face[ICD9: 173.31] Diagnosis: HYPERTENSION[ICD9: 401.9] [facility]: 49686 08/12/2012 ([id number]) OFFICE/OUTPATIENT VISIT EST Diagnosis: ARTHRALGIA-MULTIPLE SITES[ICD9: 719.49] Diagnosis: GOUT[ICD9: 274.9] Diagnosis: HYPERTENSION[ICD9: 401.9] Diagnosis: Tachycardia[ICD9: 785.0] María Elena HU [facility] CPT-4: 41497 05/06/2012 ([id number]) OFFICE/OUTPATIENT VISIT EST Diagnosis: INSOMNIA NOS[ICD9: 780.52] María [facility] CPT-[facility]: 27904 04/03/2012 ([id number]) OFFICE/OUTPATIENT VISIT EST Diagnosis: INSOMNIA NOS[ICD9: 780.52] Diagnosis: HYPERTENSION[ICD9: 401.9] Diagnosis: MIGRAINE NOS/NOT INTRCBL[ICD9: 346.90] María Elena [facility] CPT-4: 66471 03/19/2012 ([id number]) OFFICE/OUTPATIENT VISIT EST Diagnosis: CELLULITIS[ICD9: 682.9] Diagnosis: Ankle pain[ICD9: 719.47] Diagnosis: HYPERTENSION[ICD9: 401.9] María Elena [facility] CPT-4: 91356 02/20/2012 ([id number]) OFFICE/OUTPATIENT VISIT EST Diagnosis: MIGRAINE NOS/NOT INTRCBL[ICD9: 346.90] Diagnosis: Vomiting[ICD9: 787.03] María Elena JUARES LucioJj SEAMUSYESIJohn Bazzi [facility] CPT-4: 19796 01/30/2012 ([id number]) OFFICE/OUTPATIENT VISIT EST Diagnosis: EDEMA[ICD9: 782.3] Diagnosis: HYPERTENSION[ICD9: 401.9] Diagnosis: ALLERGIC RHINITIS[ICD9: 477.9] Diagnosis: ARTHRALGIA-MULTIPLE SITES[ICD9: 719.49] María Elena Seamusdawn REED LucioJj TD [facility] CPT-4: 22158 01/24/2012 ([id number]) OFFICE/OUTPATIENT VISIT EST Diagnosis: SPASM OF MUSCLE[ICD9: 728.85] Diagnosis: Thoracic back pain[ICD9: 724.1] Diagnosis: Cervical pain[ICD9: 723.1] María Elena Hicks KRISTYN MUMTAZ [facility] CPT-4: 78747 01/10/2012 OFFICE/OUTPATIENT VISIT EST Diagnosis: PAIN, LOWER BACK[ICD9: 724.2] Diagnosis: LUMBAR DISC DISPLACEMENT[ICD9: 722.10] María Elena MARIN LucioJj TD [employer] [facility] CPT-4: 18853 12/11/2011 OFFICE/OUTPATIENT VISIT EST Diagnosis: MIGRAINE NOS/NOT INTRCBL[ICD9: 346.90] Diagnosis: SINUSITIS, ACUTE[ICD9: 461.9] María Elena Hicks TD [employer] [facility] CPT-4: 85960 11/09/2011 OFFICE/OUTPATIENT VISIT EST Diagnosis: MIGRAINE NOS/NOT INTRCBL[ICD9: 346.90] Diagnosis: LYMPHADENOPATHY[ICD9: 785.6] María Elena Hicks TD [employer] [facility] CPT-4: 15781 09/13/2011 OFFICE/OUTPATIENT VISIT EST Diagnosis: MALAISE AND FATIGUE[ICD9: 780.79] Diagnosis: ARTHRALGIA-MULTIPLE SITES[ICD9: 719.49] María Elena Hicks TD [employer] [facility] CPT-4: 71653 08/31/2011 OFFICE/OUTPATIENT VISIT EST Diagnosis: SINUSITIS, ACUTE[ICD9: 461.9] María Elena ORTAER DO [facility] CPT-4: 32428 07/20/2011 OFFICE/OUTPATIENT VISIT EST Diagnosis: HYPERTENSION[ICD9: 401.9] Diagnosis: PAIN, LOWER BACK[ICD9: 724.2] Diagnosis: SPASM OF MUSCLE[ICD9: 728.85] María Elena ORTAER DO [facility] CPT-4: 62367 07/06/2011 OFFICE/OUTPATIENT VISIT EST Diagnosis: MIGRAINE NOS/NOT INTRCBL[ICD9: 346.90] Diagnosis: HYPERTENSION[ICD9: 401.9] María Elena GODOY NDER [facility] CPT-4: 89049 05/22/2011 OFFICE/OUTPATIENT VISIT EST Diagnosis: SINUSITIS, ACUTE[ICD9: 461.9] Diagnosis: MIGRAINE NOS/NOT INTRCBL[ICD9: 346.90] Diagnosis: Dehydration[ICD9: 276.51] Diagnosis: Vomiting[ICD9: 787.03] María Elena ORTAE R DO [facility] CPT-4: 22303 05/09/2011 ([id number]) OFFICE/OUTPATIENT VISIT EST María Elena MARIN SJj GODOYNDER DO [facility] CPT-4: 38712 02/14/2011 ([id number]) OFFICE/OUTPATIENT VISIT EST María Elena ISAAC UJARED S. ORENDER DO [facility] CPT-4: 39952 02/03/2011 ([id number]) OFFICE/OUTPATIENT VISIT EST María Elena ISAAC UJARED S. ORENDER DO [facility] CPT-4: 67038 01/31/2011 ([id number]) OFFICE/OUTPATIENT VISIT EST María Elena ISAAC UELINE S. ORENDER DO [facility] CPT-4: 39268 01/25/2011 ([id number]) OFFICE/OUTPATIENT VISIT EST María Elena ISAAC UJARED S. ORENDER DO [facility] CPT-4: 49432 01/18/2011 ([id number]) OFFICE/OUTPATIENT VISIT EST María Elena MARIN S. ORENDER DO [facility] CPT-4: 37114 11/29/2010 ([id number]) OFFICE/OUTPATIENT VISIT, EST María Elena [facility] CPT-4: 35453 10/10/2010 ([id number]) OFFICE/OUTPATIENT VISIT, EST María Elena REED S. ORENDER DO [employer] CPT-4: 93015 06/07/2010 ([id number]) OFFICE/OUTPATIENT VISIT, EST María Elena REED S. ORENDER DO [employer] CPT-4: 63157 04/27/2010 ([id number]) OFFICE/OUTPATIENT VISIT, EST María Elena REED S. ORENDER DO [employer] CPT-4: 60790 04/05/2010 ([id number]) OFFICE/OUTPATIENT VISIT, EST María Elena REED S. ORENDER DO [employer] CPT-4: 49403 03/09/2010 ([id number]) OFFICE/OUTPATIENT VISIT, EST María Elena REED S. ORENDER DO [employer] CPT-4: 47645 03/03/2010 ([id number]) OFFICE/OUTPATIENT VISIT, EST María Elena REED S. ORENDER DO [employer] CPT-4: 48315 01/17/2010 ([id number]) PREV VISIT, EST, AGE 40-64 María Elena COLEMAN SJj GOODYNDER DO [employer] CPT-4: 34599 12/27/2009 Plan of Care Planned Activity Notes [...] : E11.65 10/07/2019 Appointment: Kathleen Zuniga [address] [facility] [place] OFFICE SURGERY 10/07/2019 Visit Diagnosis [...] E11.65 09/30/2019 Appointment: María Elena Appiah WPtel: [address] [place], [place] [phone] [place] CHECK UP 09/30/2019 Patient Education: Premarin- Optimize[employer] Coupon [id number] https://[email or web address].com/samplemd/resources/getResource/61/98510x95-n161-1sbg-x2 Completed 09/30/2019 Appointment: María Elena Appiah WPtel: [address] [place], [place] [phone] [place] LAB 09/29/2019 Appointment: María Elena Appiah WPtel: [address] [place] [address] [place] Won't have the new insurance till [...] 05/28/2019 Appointment: María Elena Appiah WPtel: [address] [place], [place] [phone] FOLLOW UP 05/28/2019 Appointment: María Elena Appiahtel: [address] [place], [place] [address] US BP CHECK 05/19/2019 Visit Diagnosis Plan: [...] : Z79.890 01/22/2019 Appointment: María Elena Appiahtel: [address] [place], [place] [phone] [place] FOLLOW UP 01/22/2019 Patient Education: estradiol- Opt[employer] Coupon [id number] https://www.[employer]arena/samplemd/resources/getResource/61/632g032m-1pm0-6n24-1d Completed 01/22/2019 Appointment: María Elena Appiahtel: [address] [place] [address] [place] CANCELED 01/20/2019 Appointment: María Elena Appiah WPtel: [address] [place] [address] US LM NO SHOW 01/06/2019 Appointment: María Elena Appiah WPtel: [address] [place] [address] US CANCELED 10/17/2018 Appointment: María Elena Appiah WPtel: [address] [place] [address] US BP CHECK 10/09/2018 Visit Diagnosis Plan: [...] I10 09/30/2018 Appointment: María Elena Appiah WPtel: [address] [place] [address] [place] FOLLOW UP 09/30/2018 Visit Diagnosis Plan: [...] 08/27/2018 Appointment: María Elena Appiah WPtel: [address] [place] [address] [place] ACUTE ILLNESS 08/27/2018 Appointment: María Elena Appiah WPtel: [address] [place], [place] [phone] [place] Patient stated she went out to [...] prn. Tyle... 08/09/2018 Appointment: María Elena Appiahtel: [address] [place] [address] ACUTE ILLNESS 08/09/2018 Appointment: María Elena Appiahtel: [address] [place], [place] [phone] NO SHOW 08/08/2018 Visit Diagnosis Plan: Anxiety [...] : B35.4 07/22/2018 Appointment: María Elena Appiahtel: [address] [place], [place] [phone] ACUTE ILLNESS 07/22/2018 Appointment: María Elena Appiahtel: [address] [place], [place] [phone] [place] INJECTION 06/19/2018 Patient Education: Patient Medication [...] : L03.031 06/17/2018 Appointment: Kathleen Zuniga [address] [facility] ACUTE ILLNESS 06/17/2018 Patient Education: Patient [...] : B02.9 05/16/2018 Appointment: Kathleen Zuniga [address] [facility] ACUTE ILLNESS 05/16/2018 Patient Education: Patient [...] : L03.115 03/20/2018 Appointment: Kathleen Zuniga [address] [facility] FOLLOW UP 03/20/2018 Patient Education: Patient [...] : L03.115 03/18/2018 Appointment: Kathleen Zuniga [address] [facility] FOLLOW UP 03/18/2018 Patient Education: Patient [...] : L03.115 03/15/2018 Appointment: Kathleen Zuniga [address] [facility] ACUTE ILLNESS 03/15/2018 Patient Education: Patient [...] : J01.90 02/11/2018 Appointment: Kathleen Zuniga [address] [facility] ACUTE ILLNESS 02/11/2018 Patient Education: Patient Medication Summary Completed 02/11/2018 Appointment: María Elena Appiah WPtel: [phone] [facility] [place] INJECTION 02/01/2018 Patient Education: [...] : M51.16 01/30/2018 Appointment: Kathleen Zuniga [address] [place], [place] [phone] ACUTE ILLNESS 01/30/2018 Patient Education: Patient [...] 12/18/2017 Appointment: María Elena Appiah WPtel: [phone] Annual Well Visit 12/18/2017 Patient Education: Patient Medication Summary Completed 12/18/2017 Care Plan: Referral Order SNOMED-CT : [id number] Pending 12/18/2017 Appointment: María Elena Appiah WPtel: [phone] INJECTION 12/10/2017 Patient Education: Patient Medication [...] ICD-10 : L03.031 12/07/2017 Appointment: Kathleen Zuniga [address] [place] [address] ACUTE ILLNESS 12/07/2017 Patient Education: Patient Medication [...] : J01.00 10/08/2017 Appointment: Kathleen Zuniga [address] [place] [address] ACUTE ILLNESS 10/08/2017 Patient Education: Patient Medication Summary Completed 10/08/2017 Appointment: María Elena Appiah WPtel: [phone] [id number] [place] INJECTION 09/21/2017 Patient Education: Patient Medication [...] : R06.83 09/20/2017 Appointment: Kathleen Zuniga [address] [place], [place] [id number] ACUTE ILLNESS 09/20/2017 Patient Education: Patient Medication [...] ICD-10 : L60.0 08/29/2017 Appointment: Kathleen Zuniga [address] [place] [address] OFFICE SURGERY 08/29/2017 Patient Education: Patient Medication Summary Completed 08/29/2017 Visit Diagnosis Plan: Actinic keratosis Discussion: Cr yotherapy as above ICD-9 : 702.0 ICD-10 : L57.0 08/01/2017 Appointment: María Elena Appiah WPtel: [address] [place] [address] OFFICE SURGERY 08/01/2017 Patient Education: Patient Medication Summary Completed 08/01/2017 Appointment: María Elena Appiah WPtel: [address] [place] [address] PATIENT THOUGHT APPOINTMENT WAS TOMORROW 07/26/17 CALLED 15 MINUTES BEFORE APPT TO SAY SHE DIDN'T HAVE ANYONE TO COVER HER BUSINESS AND WOULD NOT MAKE IT NO SHOW 07/25/2017 Visit Diagnosis Plan: Cellulitis of left toe Discussio n: Clindamycin and notify if worsening or persistis ICD-9 : 681.10 ICD-10 : L03.032 07/19/2017 Appointment: María Elena Appiah WPtel: [address] [place], [place] [address] MEDICATION REVIEW 07/19/2017 Patient Education: Patient Medication Summary Completed 07/19/2017 Appointment: María Elena Appiah WPtel: [address] [place] [address] [place] CANCELED 07/04/2017 Visit Diagnosis Plan: Generalized hyperhidrosis Discus ian: CBC, CMP, TSH, free T4 ordered to assess. will review labs. ICD-9 : 780.8 ICD-10 : R61 06/27/2017 Visit Diagnosis Plan: Chronic sinusitis, unspecified D iscussion: Referral sent to dr. albarado in [place] per patient request. patient has been treated multiple times for sinus infections with no recovery. patient was seen by dr sanchez in the past with no interventions. patient has deviated septum which may be affecting her sinuses. 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, including hip Discussion: Shave removal of above lesio n--sent to pathology ICD-9 : 216.7 ICD-10 : D23.72 01/24/2017 Appointment: María Elena Appiah WPtel: [address] [place] [address] 01/23 confirmed ~sl OFFICE SURGERY 01/24/2017 Patient Education: Patient Medication Summary Completed 01/24/2017 Appointment: Loan Sánchez [address] [place] [address] 01/09 rescheduled~sl RESCHEDULED 01/15/2017 Visit Diagnosis Plan: [...] L81.4 12/13/2016 Appointment: María Elena Appiah WPtel: [address] [place], [place] [phone] [place] 12/12 confirmed ~ MEDICATION REVIEW 12/13/2016 Patient Education: Patient Medication Summary Completed 12/13/2016 Appointment: María Elena Appiah WPtel: [address] [place], [place] [phone] [place] rescheduled for 12/13/16 at 11am RESCHEDULED 0 12/06/2016 Appointment: María Elena Appiah WPtel: [address] [place], [place] [phone] [place] CANCELED 11/23/2016 Patient Education: Patient Medication [...] F51.01 11/01/2016 Appointment: María Elena Appiah WPtel: [address] [place], [place] [id number] [place] 10/31 lm `sl 11/01 lm`sl MEDICATION REVIEW 017 Patient Education: Patient Medication Summary Completed 11/01/2016 Referral: Canelo Overton WPtel: [phone] [id number] Referral Initiated 10/30/2016 Visit Diagnosis Plan: Encounter [...] Z01.419 10/17/2016 Appointment: María Elena Appiah WPtel: [address] [place], [place] [id number] 10/16 confirmed ~sl PAP 10/17/2016 Patient Education: Patient Medication Summary Completed 10/17/2016 Care Plan: MAMMOGRAM SCREENING LOINC : 2 6347-5 Pending 10/17/2016 Visit Diagnosis Plan: Other seasonal allergic rhinitis Discussion: Decadron/Garamycin Nasal [place] Mix Too soon for steroid Retry zyrtec 10mg daily ICD-9 : 477.9 ICD-10 : J30.2 10/10/2016 Appointment: María Elena Appiah WPtel: [address] [place], [place] [id number] [place] FOLLOW UP 10/10/2016 Patient Education: Patient Medication Summary Completed 10/10/2016 Appointment: María Elena Appiah WPtel: [address] [place], [place] [id number] 10/02 reschedule `sl RESCHEDULED 10/02/2016 Visit Plan: See surgery for removal of n ew left arm lesion and right foot lesion Lyrica to use next month for left arm paresthesias Continue current meds Discussed sunscreen/sunblock combo 09/19/2016 Appointment: María Elena Appiah WPtel: [address] 09/18 confirmed ~sl FOLLOW UP 09/19/2016 Patient Education: Patient Medication Summary Completed 09/19/2016 Patient Education: Patient Medication Summary Completed 09/18/2016 Care Plan: MAMMOGRAM BOTH BREASTS LOINC : 21762-0 Pending 09/18/2016 Visit Plan: Discussed that needs [...] sinuses 08/24/2016 Appointment: María Elena Appiah WPtel: [address] [place] [address] ACUTE ILLNESS 08/24/2016 Patient Education: Patient Medication Summary Completed 08/24/2016 Patient Education: Patient Medication Summary Completed 08/23/2016 Care Plan: MAMMOGRAM SCREENING LOINC : 2 6347-5 Pending 08/23/2016 Visit Plan: Finish doxycycline Add Breo 100/25 1 p BID for 2 weeks If not improving within next 2 days will get CXR 08/16/2016 Appointment: María Elena Appiahtel: [address] [place] [address] ACUTE ILLNESS 08/16/2016 Patient Education: Patient Medication Summary Completed 08/16/2016 Visit Plan: Supportive care. Rest, Fluid s, Tylenol/Motrin prn fever or bodyaches. Notify if worsening symptoms. Doxycyline and Prednisone 08/10/2016 Appointment: María Elena Appiah WPtel: [facility] [address] 08/09 lm`sl....confirmed-sp FOLLOW UP 09/2015 Patient Education: Patient Medication Summary Completed 08/10/2016 Visit Plan: Saline nasal flushes prn. Ty lenol/Motrin prn headache. Notify if persists/symptoms worsening. Dexamethasone 8mg IM today May use coricedan and mucinex 08/02/2016 Appointment: María Elena Appiah WPtel: [address] [place], [place] [id number] ACUTE ILLNESS 08/02/2016 Patient Education: Patient Medication Summary Completed 08/02/2016 Visit Plan: Cryotherapy as above and lef t forearm lesion removal as above with 5-0 punch biopsy and sent to [facility] Return in 10 days for suture removal 08/01/2016 Appointment: María Elena Appiah WPtel: [address] [place] [address] 07/31 confirmed`~ OFFICE SURGERY 08/01/2016 Patient Education: Patient Medication Summary Completed 08/01/2016 Visit Plan: Stop clindamycin Check CBC, CMP, ESR now/STAT 07/27/2016 Appointment: María Elena Appiah WPtel: [address] [place] [address] ACUTE ILLNESS 07/27/2016 Patient Education: Patient Medication Summary Completed 07/27/2016 Visit Plan: Update lab and check ABIs to start with Will likely need cardiology evaluation to rule out PVD Clindamycin for 10 days Daily yogurt or probiotic Will return for removal of left arm lesions 07/20/2016 Appointment: María Elena Appiah WPtel: [address] [place] [address] ACUTE ILLNESS 07/20/2016 Patient Education: Patient Medication Summary Completed 07/20/2016 Patient Education: Patient Medication Summary Completed 07/20/2016 Care Plan: MAMMOGRAM BOTH BREASTS LOINC : 97691-1 Pending 07/20/2016 Care Plan: US EXAM CHEST LOINC : 04142-2 Pending 07/20/2016 Visit Plan: Wound culture collected from left great toe Appearance is somewhat staph like Rx as above Wound cleanser and skin care reviewed May need to add oral antibiotic if sores do not heal or continue to reoccur 07/06/2016 Appointment: Loan Sánchez [address] [place] [address] ACUTE ILLNESS 07/06/2016 Patient Education: Patient Medication Summary Completed 07/06/2016 Appointment: María Elena Appiah WPtel: [address] [place], [place] [phone] US INJECTION 05/25/2016 Patient Education: Patient Medication Summary Completed 05/25/2016 Visit Plan: Saline nasal flushes prn. Ty lenol/Motrin prn headache. Notify if persists/symptoms worsening. Dexamethasone and Rocephin given 04/26/2016 Appointment: María Elena Appiah WPtel: [address] [place] [address] ACUTE ILLNESS 04/26/2016 Patient Education: Patient Medication Summary Completed 04/26/2016 Visit Plan: Check CBC, CMP, TSH, FreeT4, HbA1C, estradiol, lipids in AM 03/02/2016 Appointment: María Elena Appiah WPtel: [address] [place] [address] 03/01 lm~sl ACUTE ILLNESS 03/02/2016 Patient Education: Patient Medication Summary Completed 03/02/2016 Visit Plan: Exam is nearly normal Needs to be taking daily antihistamine Would prefer to use oral steroids instead of shot but patient insist that oral steroids cause horrible headaches for her Will given kenalog IM instead 02/09/2016 Appointment: Loan Sánchez [address] [place] [address] ACUTE ILLNESS 02/09/2016 Patient Education: Patient Medication Summary Completed 02/09/2016 Visit Plan: Culture urine Macrobid DC xa nax Trial of Ativan 1mg q HS 01/24/2016 Appointment: María Elena Appiah WPtel: [address] [place] [address] ACUTE ILLNESS 01/24/2016 Patient Education: Patient Medication Summary Completed 01/24/2016 Visit Plan: No steroid or rocephin injec tion warranted Can have oral prednisone Continue current home regimen Needs to follow up with Dr Sanchez if problems persist 12/23/2015 Appointment: Loan Sánchez [address] [place] [address] ACUTE ILLNESS 12/23/2015 Patient Education: Patient Medication Summary Completed 12/23/2015 Visit Plan: Saline nasal flushes prn. Ty lenol/Motrin prn headache. Notify if persists/symptoms worsening. Kenalog 40mg IM today 12/08/2015 Appointment: María Elena Appiah WPtel: [address] [place], [place] [phone] 12/06 confirmed~sl ACUTE ILLNESS 12/08/2015 Patient Education: Patient Medication Summary Completed 12/08/2015 Appointment: María Elena Appiah WPtel: [address] [place], [place] [phone] ACUTE ILLNESS 11/18/2015 Patient Education: Patient Medication Summary Completed 10/11/2015 Appointment: María Elena Appiah WPtel: [address] [place], [place] [phone] US INJECTION 10/07/2015 Patient Education: Patient Medication Summary Completed 10/07/2015 Visit Plan: Check renal arterial doppler s and ECHO Change amlodopine to lotrel 5/20mg q HS Will need stress test as well Check CMP, uric acid, ESR 10/06/2015 Appointment: María Elena Appiah WPtel: [address] [place], [place] [phone] ACUTE ILLNESS 10/06/2015 Patient Education: Patient Medication Summary Completed 10/06/2015 Patient Education: [facility] [place] - Saving [employer] - Amlodipine Besylate - 18-64 - Dynamic Portal ID Completed 10/06/2015 Appointment: María Elena Appiah WPtel: [address] [place], [place] [phone] FOLLOW UP 09/22/2015 Visit Plan: Cephalexin 500 mg PO bid Mery ly topical Mupirocin to lesions on left lateral neck and face Follow-up in one week. Sooner if symptoms worsen 09/14/2015 Appointment: June Flores WPtel: [address] [place] [address] ACUTE ILLNESS 09/14/2015 Patient Education: Patient Medication Summary Completed 09/14/2015 Visit Plan: Change bystolic to bedtime d osing and amlodopine to morning dosing Cryotherapy as above to AKs 09/07/2015 Appointment: María Elena Appiah WPtel: [address] [place], [place] [phone] 09/06 appointment made and confirmed ~sl FOLLOW UP 09/07/2015 Patient Education: Patient Medication Summary Completed 09/07/2015 Visit Plan: Increase bystolic back to 20 mg daily but will split and take 10mg in AM and 10mg in PM Stress Reducers 08/18/2015 Appointment: María Elena Appiah WPtel: [address] [place] [address] 08/17/15 appt confirmed cn ACUTE ILLNESS 08/18 Patient Education: Patient Medication Summary Completed 08/18/2015 Appointment: María Elena Appiah WPtel: [address] [place] [address] BP CHECK 07/07/2015 Patient Education: Patient Medication Summary Completed 07/07/2015 Appointment: María Elena Appiah WPtel: [address] [place] [address] BP CHECK 06/24/2015 Patient Education: Patient Medication Summary Completed 06/24/2015 Appointment: María Elena Appiah WPtel: [address] [place] [address] BP CHECK 06/21/2015 Patient Education: Patient Medication Summary Completed 06/21/2015 Visit Plan: Lab discussed Continue curre nt meds and lifestyle modification Recheck lab in 6mos 06/16/2015 Appointment: María Elena Appiah WPtel: [address] [place] [address] 06/15 confirmed FOLLOW UP 06/16/2015 Patient Education: Patient Medication Summary Completed 06/16/2015 Patient Education: Patient Medication Summary Completed 06/15/2015 Visit Plan: Increase cymbalta to 60mg q HS Keep clonidine at current dose Recheck 2weeks Change xanax to klonopin 06/02/2015 Appointment: María Elena Appiah WPtel: [address] [place], [place] [phone] 06/02 lm FOLLOW UP 06/02/2015 Patient Education: Patient Medication Summary Completed 06/02/2015 Appointment: María Elena Appiah WPtel: [address] [place] [address] ACUTE ILLNESS 05/24/2015 Visit Plan: Increase clonidine to 0.2mg q HS Add cymbalta 30mg q HS Recheck 2weeks Stress Reducers Check fasting lab Discussed sleep study 05/20/2015 Appointment: María Elena Appiah WPtel: [address] [place] [address] ACUTE ILLNESS 05/20/2015 Patient Education: Patient Medication Summary Completed 05/20/2015 Patient Education: [facility] [place] - [employer] - Cymbalta - 18-64 - Dynamic Portal ID Completed 05/20/2015 Appointment: María Elena Appiah WPtel: [address] [place] [address] BP CHECK 05/19/2015 Patient Education: Patient Medication Summary Completed 05/19/2015 Visit Plan: Topical Bactroban alternatin g with topical betamethasone Recheck 2weeks 05/10/2015 Appointment: María Elena Appiah WPtel: [address] [place] [address] 05/07 cn...05/07 appt confirmed OFFICE SURGER Y 05/10/2015 Patient Education: Patient Medication Summary Completed 05/10/2015 Ref[facility]: [facility] [address] Referral Initiated 05/04/2015 Visit Plan: Saline nasal flushes prn. Ty lenol/Motrin prn headache. Notify if persists/symptoms worsening. Depomedrol 40mg IM today 03/16/2015 Appointment: María Elena Appiah WPtel: [address] [place] [address] ACUTE ILLNESS 03/16/2015 Patient Education: Patient Medication Summary Completed 03/16/2015 Appointment: María Elena Appiah WPtel: [address] [place] [address] ER Follow UP 03/09/2015 Visit Plan: Cryotherapy to lesions as ab ove 10/27/2014 Appointment: María Elena Appiah WPtel: [address] [place] [address] OFFICE SURGERY 10/27/2014 Patient Education: Patient Medication Summary Completed 10/27/2014 Appointment: June Flores WPtel: [address] [place] [address] ACUTE ILLNESS 09/11/2014 Patient Education: Patient Medication Summary Completed 09/11/2014 Visit Plan: Lab discussed Lipitor 10mg d aily Coenzyme Q-10 400mg daily Vitamin D3 5000u daily Recheck lipids with LFTs in 3mos then fwup 08/31/2014 Appointment: María Elena Appiah WPtel: [address] [place] [address] 08/28 voicemail FOLLOW UP 08/31/2014 Patient Education: Patient Medication Summary Completed 08/31/2014 Appointment: María Elena Appiah WPtel: [address] [place] [address] US LAB 08/27/2014 Appointment: María Elena Appiah WPtel: [address] [place], [place] [phone] US LAB 08/27/2014 Patient Education: Patient Medication Summary Completed 08/27/2014 Appointment: María Elena Appiah WPtel: [address] [place], [place] [phone] ACUTE ILLNESS 07/23/2014 Appointment: María Elena Appiah WPtel: [address] [place] [address] ACUTE ILLNESS 07/21/2014 Patient Education: Patient Medication Summary Completed 07/21/2014 Visit Plan: Kenalog 40mg IM today Contin ue narendra and singulair Add Flonase 07/15/2014 Appointment: María Elena Appiah WPtel: [address] [place], [place] [phone] ACUTE ILLNESS 07/15/2014 Appointment: María Elena Appiah WPtel: [address] [place], [place] [phone] ACUTE ILLNESS 07/15/2014 Patient Education: Patient Medication Summary Completed 07/15/2014 Visit Plan: Will do metolazone 2.5mg prn with 6 potassium and see if causes as severe cramping Trial of of seroquel XR 50mg q PM with evening meal and let us know how works 05/18/2014 Appointment: María Elena Appiah WPtel: [address] [place], [place] [phone] 05/15 left message FOLLOW UP 05/18/2014 Patient Education: Patient Medication Summary Completed 05/18/2014 Appointment: María Elena Appiah WPtel: [address] [place], [place] [phone] LAB 05/14/2014 Patient Education: Patient Medication Summary Completed 05/14/2014 Appointment: María Elena Appiah WPtel: [address] [place], [place] [phone] US INJECTION 04/22/2014 Visit Plan: Nimco today a nd finish abx given from urgent care 04/21/2014 Appointment: María Elena Appiah WPtel: [address] [place], [place] [phone] US INJECTION 04/21/2014 Patient Education: Patient Medication Summary Completed 04/21/2014 Appointment: June Flores WPtel: [address] [place], [place] [phone] ACUTE ILLNESS 03/04/2014 Patient Education: Patient Medication Summary Completed 03/04/2014 Appointment: María Elena Appiah WPtel: [address] [place], [place] [phone] US INJECTION 02/27/2014 Patient Education: Patient Medication Summary Completed 02/27/2014 Visit Plan: Cryotherapy as above to all lesions Patient wants to try no meds for insomnia for a while and see how goes 01/13/2014 Appointment: María Elena Appiah WPtel: [address] [place] [address] OFFICE SURGERY 01/13/2014 Patient Education: Patient Medication Summary Completed 01/13/2014 Visit Plan: Stop Melatonin Stop Soma Tri al of trazadone 75mg q HS See ENT for possible tubes as has had chronic ETD and serous otitis media with numerous steroids 12/24/2013 Appointment: María Elena Appiah WPtel: [address] [place] [address] ACUTE ILLNESS 12/24/2013 Patient Education: Patient Medication Summary Completed 12/24/2013 Visit Plan: Saline nasal flushes prn. Ty lenol/Motrin prn headache. Notify if persists/symptoms worsening. 11/12/2013 Appointment: María Elena Appiah WPtel: [address] [place] [address] ACUTE ILLNESS 11/12/2013 Patient Education: Patient Medication Summary Completed 11/12/2013 Appointment: María Elena Appiah WPtel: [address] [place] [address] ACUTE ILLNESS 10/21/2013 Patient Education: Patient Medication Summary Completed 10/21/2013 Visit Plan: Sleep hygiene and sleep rout ine Melatonin 10mg q HS Support stockings and observe 09/22/2013 Appointment: María Elena Appiah WPtel: [address] [place] [address] ACUTE ILLNESS 09/22/2013 Patient Education: Patient Medication Summary Completed 09/22/2013 Appointment: June Flores WPtel: [address] [place] [address] ACUTE ILLNESS 08/27/2013 Patient Education: Patient Medication Summary Completed 08/27/2013 Visit Plan: Proceed with CT scan of head /neck Proceed with occipital nerve injections Butrans 20mcg patch weekly until can get into see Dr. Mcdonough for injections 08/04/2013 Appointment: María Elena Appiah WPtel: [address] [place] [address] FOLLOW UP 08/04/2013 Patient Education: Patient Medication Summary Completed 08/04/2013 Visit Plan: OMT done Daily neck stretche s, moist heat Increase Celebrex to 200mg BID Add flexeril 07/23/2013 Appointment: María Elena Appiah WPtel: [address] [place] [address] 07/22 voicemail FOLLOW UP 07/23/2013 Patient Education: Patient Medication Summary Completed 07/23/2013 Appointment: María Elena Appiah WPtel: [address] [place] [address] ACUTE ILLNESS 06/23/2013 Patient Education: Patient Medication Summary Completed 06/23/2013 Appointment: María Elena Appiah WPtel: [address] [place] [address] ACUTE ILLNESS 05/26/2013 Patient Education: Patient Medication Summary Completed 05/26/2013 Visit Plan: Decrease clonidine to 0.1mg TID If BP remains stable consider decreasing amlodopine Prednisone for 5 days BP check in 1mo 04/16/2013 Appointment: María Elena Appiah WPtel: [address] [place] [address] 04/14 pt called and confirmed appt FOLLOW UP 04/16/2013 Patient Education: Patient Medication Summary Completed 04/16/2013 Appointment: María Elena Appiah WPtel: [address] [place] [address] ACUTE ILLNESS 03/05/2013 Patient Education: Patient Medication Summary Completed 03/05/2013 Visit Plan: Pt has MARIA ELENA on with Dr. Mcdonough Continue Butrans patch Refill Hydrocodone early tomorrow 12/23/2012 Appointment: María Elena Appiah WPtel: [address] [place] [address] FOLLOW UP 12/23/2012 Patient Education: Patient Medication Summary Completed 12/23/2012 Appointment: Lashawn Eckert WPtel: [address] [place] [address] ACUTE ILLNESS 12/16/2012 Patient Education: Patient Medication Summary Completed 12/16/2012 Visit Plan: Proceed with updated MRI of LS spine Continue gabapentin and add soma and diclofenac Will likely need to go for another epidural 12/09/2012 Appointment: María Elena Appiah WPtel: [address] [place] [address] ACUTE ILLNESS 12/09/2012 Patient Education: Patient Medication Summary Completed 12/09/2012 Visit Plan: Injection as above Finish me drol dose pack Chiropracter this afternoon 12/04/2012 Appointment: María Elena Appiah WPtel: [address] [place] [address] ACUTE ILLNESS 12/04/2012 Patient Education: Patient Medication Summary Completed 12/04/2012 Appointment: Mary Tillman WPtel: [address] [place] [address] FOLLOW UP 11/22/2012 Patient Education: Patient Medication Summary Completed 11/22/2012 Appointment: María Elena Appiah WPtel: [address] [place] [address] ACUTE ILLNESS 11/21/2012 Patient Education: Patient Medication Summary Completed 11/21/2012 Appointment: María Elena Appiah WPtel: [address] [place] [address] BP CHECK 11/07/2012 Patient Education: Patient Medication Summary Completed 11/07/2012 Visit Plan: reports extra clonidine and extra amlodipine and extra alprazalam. extra Ketolorac and promethazine last night. Bystolic 10 mg QAM and will continue all other blood pressure meds. Pt. encouraged to rest and hydrate. Discussed stroke and NC symptoms. Pt. instructed to seek ER eval if symptoms worsen or headache persists. Pt. agrees to ER eval/EMS transport if symptoms worsen. BP re-check. 10/29/2012 Appointment: Lashawn Eckert WPtel: [address] [place] [address] ACUTE ILLNESS 10/29/2012 Patient Education: Patient Medication Summary Completed 10/29/2012 Appointment: María Elena Appiah WPtel: [address] [place], [place] [phone] ACUTE ILLNESS 10/14/2012 Patient Education: Patient Medication Summary Completed 10/14/2012 Appointment: María Elena Appiah WPtel: [address] [place] [address] UA 09/27/2012 Patient Education: Patient Medication Summary Completed 09/27/2012 Appointment: María Elena Appiah WPtel: [address] [place] [address] ACUTE ILLNESS 09/25/2012 Patient Education: Patient Medication Summary Completed 09/25/2012 Appointment: María Elena Appiah WPtel: [address] [place] [address] BP CHECK 09/24/2012 Appointment: María Elena Appiah WPtel: [address] [place] [address] ACUTE ILLNESS 08/29/2012 Patient Education: Patient Medication Summary Completed 08/29/2012 Visit Plan: Cryotherapy as above See Karlos m for right ear lesion--probable MOHs procedure Increase amlodopine to 10mg daily 08/12/2012 Appointment: María Elena Appiah WPtel: [address] [place], [place] [phone] OFFICE SURGERY 08/12/2012 Patient Education: Patient Medication Summary Completed 08/12/2012 Appointment: María Elena Appiah WPtel: [address] [place], [place] [phone] 05/03 vm on pt phone...pt called on 04/11 3 pt called wanting in had no one cancel so could not get her in for an appt sooner than 05/06. ACUTE ILLNESS 05/06/2012 Patient Education: Patient Medication Summary Completed 05/06/2012 Visit Plan: Pt wants to hold on any furt her sleep medications 04/03/2012 Appointment: María Elena Appiahtel: [address] [place] [address] FOLLOW UP 04/03/2012 Patient Education: Patient Medication Summary Completed 04/03/2012 Appointment: María Elena Appiah WPtel: [address] [place] [address] FOLLOW UP 03/19/2012 Patient Education: Patient Medication Summary Completed 03/19/2012 Appointment: María Elena Appiahtel: [address] [place] [address] BP CHECK 02/22/2012 Patient Education: Patient Medication Summary Completed 02/22/2012 Appointment: María Elena Appiah WPtel: [address] [place] [address] BP CHECK 02/21/2012 Patient Education: Patient Medication Summary Completed 02/21/2012 Visit Plan: Doxycycline and bactroban fo r foot Supportive care on ankles and knees Add norvasc for BP 02/20/2012 Appointment: María Elena Appiahtel: [address] [place] [address] ER Follow UP 02/20/2012 Patient Education: Patient Medication Summary Completed 02/20/2012 Appointment: María Elena Appiahtel: [address] [place] [address] ACUTE ILLNESS 01/30/2012 Patient Education: Patient Medication Summary Completed 01/30/2012 Appointment: María Elena Appiahtel: [address] [place] [address] ACUTE ILLNESS 01/24/2012 Patient Education: Patient Medication Summary Completed 01/24/2012 Visit Plan: Daily back stretches, moist heat, Biofreeze prn OMT done 01/10/2012 Appointment: María Elena Appiah WPtel: [address] [place] [address] ACUTE ILLNESS 01/10/2012 Patient Education: Patient Medication Summary Completed 01/10/2012 Appointment: María Elena Appiah WPtel: [address] [place] [address] FOLLOW UP 12/11/2011 Patient Education: Patient Medication Summary Completed 12/11/2011 Appointment: María Elena Appiah WPtel: [address] [place] [address] ACUTE ILLNESS 11/09/2011 Patient Education: Patient Medication Summary Completed 11/09/2011 Appointment: María Elena Appiah WPtel: [address] [place] [address] ACUTE ILLNESS 09/13/2011 Patient Education: Patient Medication Summary Completed 09/13/2011 Visit Plan: Check CBC, TSH, Free T4, CMP , ESR, Vit D, B12 now Start Prednisone today 08/31/2011 Appointment: María Elena Appiah WPtel: [address] [place] [address] ACUTE ILLNESS 08/31/2011 Patient Education: Patient Medication Summary Completed 08/31/2011 Appointment: María Elena Appiah WPtel: [address] [place] [address] US INJECTION 07/20/2011 Patient Education: Patient Medication Summary Completed 07/20/2011 Visit Plan: Continue current meds Monite r BP Cont stretches from PT 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 07/06/2011 Appointment: María Elena Appiahtel: [address] [place] [address] FOLLOW UP 07/06/2011 Patient Education: Patient Medication Summary Completed 07/06/2011 Appointment: María Elena Appiah WPtel: [address] [place] [address] BP CHECK 06/06/2011 Patient Education: Patient Medication Summary Completed 06/06/2011 Visit Plan: Add Bystolic at 2.5mg QAM Ad d Robaxin 750mg 2 po q HS BP check in 2wks 05/22/2011 Appointment: María Elena Appiah WPtel: [address] [place], [place] [phone] FOLLOW UP 05/22/2011 Patient Education: Patient Medication Summary Completed 05/22/2011 Appointment: María Elena Appiah WPtel: [address] [place], [place] [phone] ER Follow UP 05/09/2011 Patient Education: Patient Medication Summary Completed 05/09/2011 Appointment: María Elena Appiah WPtel: [address] [place], [place] [phone] FOLLOW UP 02/22/2011 Visit Plan: Rx written for Hydrocodone 1 0/325mg #240 See Ortho 02/14/2011 Appointment: María Elena Appiah WPtel: [address] [place] [address] OMT 02/14/2011 Patient Education: Patient Medication Summary [...] lab work. 02/03/2011 Appointment: Lashawn Eckert WPtel: [address] [place], [place] [phone] ACUTE ILLNESS 02/03/2011 Patient Education: Patient Medication Summary Completed 02/03/2011 Visit Plan: OMT done Cont daily stretche s 01/31/2011 Appointment: María Elena Appiah WPtel: [address] [place] [address] ACUTE ILLNESS 01/31/2011 Patient Education: Patient Medication Summary Completed 01/31/2011 Visit Plan: Continue pain meds OMT done Proceed with PT No work this summer01/25/2011 Appointment: María Elena Appiah WPtel: [address] [place] [address] ACUTE ILLNESS 01/25/2011 Patient Education: Patient Medication Summary Completed 01/25/2011 Visit Plan: Start PT Long discussion abo ut getting pain meds from only and can only have max of 4grams of tylenol per day Change to Hydrocodone 10/325mg 1- 2 po TID prn pain--#180 called to [facility] 01/18/2011 Appointment: María Elena Appiah WPtel: [address] [place] [address] FOLLOW UP 01/18/2011 Patient Education: Patient Medication Summary Completed 01/18/2011 Visit Plan: Daily back stretches, moist heat, Biofreeze prn 11/29/2010 Appointment: María Elena Appiah WPtel: [address] [place] [address] ER Follow UP 11/29/2010 Patient Education: Patient Medication Summary Completed 11/29/2010 Visit Plan: Saline nasal flushes prn. Ty lenol/Motrin prn headache. Notify if persists/symptoms worsening. Finish augmentin Add Medrol Dose Pack 10/10/2010 Appointment: María Elena Appiah WPtel: [address] [place] [address] ACUTE ILLNESS 10/10/2010 Patient Education: Patient Medication Summary Completed 10/10/2010 Visit Plan: Cryotherapy x3 to multiple l esions on both forearms 07/19/2010 Appointment: María Elena Appiah WPtel: [address] [place], [place] [phone] US OFFICE SURGERY 07/19/2010 Patient Education: Patient Medication Summary Completed 07/19/2010 Appointment: María Elena Appiah WPtel: [address] [place] [address] BP CHECK 07/06/2010 Patient Education: Patient Medication Summary Completed 07/06/2010 Appointment: María Elena Appiah WPtel: [address] [place] [address] BP CHECK 06/30/2010 Patient Education: Patient Medication Summary Completed 06/30/2010 Appointment: María Elena Appiah WPtel: [address] [place] [address] BP CHECK 06/20/2010 Patient Education: Patient Medication Summary Completed 06/20/2010 Visit Plan: Change Diovan to Exforge 160 /5mg QD OMT done to thoracics BP check in 2wks 06/07/2010 Appointment: María Elena Appiah WPtel: [address] [place] [address] FOLLOW UP 06/07/2010 Patient Education: Patient Medication Summary Completed 06/07/2010 Appointment: María Elena Appiahtel: [address] [place] [address] BP CHECK 06/03/2010 Patient Education: Patient Medication Summary Completed 06/03/2010 Appointment: María Elena Appiah WPtel: [address] [place] [address] BP CHECK 06/01/2010 Patient Education: Patient Medication Summary Completed 06/01/2010 Visit Plan: Irritated skin tags to left neck x2 excised at base with scissors and base cauterized 05/30/2010 Appointment: María Elena Appiah WPtel: [address] [place] [address] OFFICE SURGERY 05/30/2010 Patient Education: Patient Medication Summary Completed 05/30/2010 Visit Plan: Saline nasal flushes prn. Ty lenol/Motrin prn headache. Notify if persists/symptoms worsening. Restart Nasonex Has allergy testing set for May 25 04/27/2010 Appointment: María Elena Appiahtel: [address] [place] [address] ACUTE ILLNESS 04/27/2010 Patient Education: Patient Medication Summary Completed 04/27/2010 Visit Plan: Saline nasal flushes prn. Ty lenol/Motrin prn headache. Notify if persists/symptoms worsening. Omnaris BID plus injections 04/05/2010 Appointment: María Elena Appiahtel: [address] [place] [address] ACUTE ILLNESS 04/05/2010 Patient Education: Patient Medication Summary Completed 04/05/2010 Visit Plan: Saline nasal flushes prn. Ty lenol/Motrin prn headache. Notify if persists/symptoms worsening. 03/09/2010 Appointment: María Elena Appiah WPtel: [address] [place] [address] ACUTE ILLNESS 03/09/2010 Patient Education: Patient Medication Summary Completed 03/09/2010 Visit Plan: Cont Clonidine as is Cont Pr emarin Fwup with surgery as scheduled 03/03/2010 Appointment: María Elena Appiahtel: [address] [place] [address] FOLLOW UP 03/03/2010 Patient Education: Patient Medication Summary Completed 03/03/2010 Visit Plan: Check Pelvic US now Discusse d Dand C vs Hysterectomy 01/17/2010 Appointment: María Elena Appiahtel: [address] [place] [address] ACUTE ILLNESS 01/17/2010 Patient Education: Patient Medication Summary Completed 01/17/2010 Visit Plan: Check fasting lab and schedu le Mammogram 2gm Na Diet Trial of Ambien 10mg qhs Fwup pending lab results 12/27/2009 Appointment: María Elena Appiahtel: [address] [place] [address] ESTABLISHED PATIENT 12/27/2009 Patient Education: Patient Medication Summary Completed 12/27/2009 Referral: Tian Canelo Pollardan WPtel: [address] [id number] [place] Referral Initiated Referral: Philipp Flores WPtel: [address] [id number] [place] Referral Appointment Requested Instructions Comment . [...] to rest and hydrate. Discussed stroke and NC symptoms. Pt. instructed to seek ER eval [...]
--- OUTSIDE RECORDS SUMMARY | 2020-03-13 06:29 | XMS REPORT | CCD ---
Author Author Gale Appiah D.O. Organization [facility] Address [address] [place] [phone] Phone Care Team Providers Care Assistant Sales Manager Name Role Phone María Elena Appiah D.O., PP Unavailable CCM Unavailable Summary Purpose Interface Exchange Insurance Providers Payer name Policy type / Coverage type Covered green party ID Effective Begin Date Effective End Date [facility] Commercial Insurance [id number] Unknown Family History Family History data not found Social History Social History Element Codes Description Effective Dates Tobacco history SNOMED CT: 973231697 Never smoker 05/22/2011 Allergies, Adverse Reactions, Alerts Substance Reaction Codes Entered Date Inactivated Date Status * NO KNOWN FOOD ALLERGIES Unknown 12/27/2009 No Inactiv e Date Active _ Unknown 03/10/2013 No Inactive Date Active _ Unknown 12/27/2009 No Inactive Date Active SULFA (SULFONAMIDE ANTIBIOTICS) Unknown 12/27/2009 No I nactive Date Active Problems Condition Codes Effective Dates Condition Status DM w/o complication type II, uncontrolled ICD-9: 250.0 2 ICD-10: E11.65 12/18/2017 Active Essential hypertension ICD-9: [...] Snoring ICD-9: 786.09 ICD-10: R06.83 09/20/2017 Active Ingrowing nail ICD-9: 703.0 ICD-10: L60.0 08/29/2017 Active Actinic keratosis ICD-9: 702.0 ICD-10: L57.0 [...] Fill Instructions Premarin 1.25 mg tablet RxNorm: 647391 1 Tablet(s) Oral QD 09/30/1906/25/2020 Active hydrocodone 10 mg-acetaminophen 325 mg tablet RxNorm: 331300 1-2 Tablet(s) Oral three times a day as needed for pain 09/30/2019 09/30/2019 Inactive gabapentin 300 mg capsule RxNorm: 797776 TAKE ONE CAPSU LE BY MOUTH EVERY NIGHT AT BEDTIME 09/19/2019 No Stop Date Active baclofen 10 mg tablet RxNorm: 550227 TAKE ONE TABLET BY MOUTH THREE TIMES A DAY NEEDED 09/19/2019 No Stop Date Active Klor-Con 8 mEq tablet,extended release RxNorm: 442436 T FARRUKH ONE TABLET BY MOUTH TWICE A DAY 1 Tablet(s) Oral two times a day 09/19/2019 10/19/2019 Act darion hydrocodone 10 mg-acetaminophen 325 mg tablet RxNorm: 363559 1-2 Tablet(s) Oral three times a day as needed for pain 09/19/2019 09/29/2019 Inactive duloxetine 60 mg capsule,delayed release RxNorm: 633793 TAKE ONE CAPSULE BY MOUTH DAILY 09/11/2019 No Stop Date Active Lipitor 10 mg tablet RxNorm: 177317 TAKE ONE TABLET BY MOUTH AT BEDTIME 09/11/2019 No Stop Date Active lisinopril 20 mg tablet RxNorm: 602337 TAKE ONE TABLET BY MOUTH DAILY .... THIS REPLACE 10MG TABLETS 09/11/2019 No Stop Date Active triamterene 75 mg-hydrochlorothiazide 50 mg tablet RxNorm: 3 85013 TAKE ONE TABLET BY MOUTH DAILY 09/11/2019 No Stop Date Active allopurinol 300 mg tablet RxNorm: 665950 TAKE ONE TABLET BY LOPEZ TH DAILY 09/11/2019 No Stop Date Active celecoxib 200 mg capsule RxNorm: 103628 TAKE ONE CAPSUL E BY MOUTH TWICE A DAY NEEDED FOR PAIN 09/11/2019 No Stop Date Active clonidine HCl 0.1 mg tablet RxNorm: 032889 TAKE ONE TAB LET BY MOUTH FOUR TIMES A DAY 09/11/2019 No Stop Date Active doxepin 25 mg capsule RxNorm: 3532682 1 Capsule(s) Oral every night at bedtime as needed for sleep 08/21/2019 11/18/2019 Active hydrocodone 10 mg-acetaminophen 325 mg tablet RxNorm: 998726 1-2 Tablet(s) PO TID 08/12/2019 09/29/2019 Inactive as needed for pa in - Previous quantity #240, will start dosing for #180 in April 2011 per Doctor Td. Medrol (Dustin) 4 mg tablets in a dose pack RxNorm: 666060 Tablet(s) Oral As Directed 07/21/2019 09/29/2019 Inactive Premarin 1.25 mg tablet RxNorm: 112882 1 Tablet(s) Oral QD 07/02/20 19 09/29/2019 Inactive hydrocodone 10 mg-acetaminophen 325 mg tablet RxNorm: 680791 1-2 Tablet(s) PO TID 07/01/2019 08/11/2019 Inactive as needed for pa in - Previous quantity #240, will start dosing for #180 in April 2011 per Doctor Td. gabapentin 300 mg capsule RxNorm: 410494 1 Capsule(s) PO QHS 201809/18/2019 Inactive celecoxib 200 mg capsule RxNorm: 598671 1 Capsule(s) Or al two times a day as needed for pain 06/27/2019 06/27/2019 Inactive Singulair 10 mg tablet RxNorm: 872134 TAKE ONE TABLET BY MOUTH JOSÉ Y 06/24/2019 No Stop Date Active furosemide 40 mg tablet RxNorm: 375750 TAKE ONE TABLET BY MOUTH EVERY MORNING NEEDED FOR EDEMA . TAKE WITH POTASSIUM 06/24/2019 No Stop Date Active doxepin 25 mg capsule RxNorm: 0109458 TAKE ONE CAPSULE B Y MOUTH EVERY NIGHT AT BEDTIME NEEDED FOR SLEEP 06/24/2019 08/20/2019 Inactive lisinopril 20 mg tablet RxNorm: 825685 TAKE ONE TABLET BY MOUTH DAILY .... THIS REPLACE 10MG TABLETS 06/24/2019 09/10/2019 Inactive nystatin-triamcinolone 100,000 unit/g-0.1 % topical cream Rx Norm: 4919208 1 Application Topical two times a day 06/12/2019 06/19/2019 Inactive apply BID for 1 week nystatin-triamcinolone 100,000 unit/g-0.1 % topical cream Rx Norm: 0422446 1 Application Topical two times a day 06/12/2019 06/11/2019 Inactive apply BID for 1 week hydrocodone 10 mg-acetaminophen 325 mg tablet RxNorm: 254493 1-2 Tablet(s) PO QID as needed for pain MUST LAST 30 DAYS 05/28/2019 06/26/2019 Inactiv e (Response to an electronic controlled substance refill request - RxReferenceNumber: [id number]) baclofen 20 mg tablet RxNorm: 005678 1 Tablet(s) PO TID as needed for muscle spasm 05/19/2019 05/27/2019 Inactive gabapentin 300 mg capsule RxNorm: 147484 1 Capsule(s) PO QHS 201805/27/2019 Inactive lisinopril 20 mg tablet RxNorm: 340711 1 Tablet(s) PO Q D TAKE ONE TABLET BY MOUTH DAILY, REPLACES 10 MG DOSE 05/19/2019 06/23/2019 Inactive doxepin 25 mg capsule RxNorm: 1338420 TAKE ONE CAPSULE B Y MOUTH EVERY NIGHT AT BEDTIME NEEDED FOR SLEEP 05/16/2019 06/14/2019 Inactive lisinopril 20 mg tablet RxNorm: 823819 TAKE ONE TABLET BY MOUTH DAILY, REPLACES 10 MG DOSE 05/16/2019 05/18/2019 Inactive Singulair 10 mg tablet RxNorm: 094289 TAKE ONE TABLET BY MOUTH JOSÉ Y 05/16/2019 06/14/2019 Inactive gabapentin 300 mg capsule RxNorm: 402532 1 Capsule(s) PO QHS 201805/04/2019 Inactive estropipate 1.5 mg tablet RxNorm: 213360 1 Tablet(s) PO QD 05/05/20 19 05/27/2019 Inactive estropipate 1.5 mg tablet RxNorm: 197297 1 Tablet(s) PO QD 05/05/20 19 05/04/2019 Inactive gabapentin 300 mg capsule RxNorm: 989826 1 Capsule(s) PO QHS 201805/18/2019 Inactive hydrocodone 10 mg-acetaminophen 325 mg tablet RxNorm: 450708 1-2 Tablet(s) PO QID as needed for pain MUST LAST 30 DAYS 04/25/2019 05/24/2019 Inactiv e (Response to an electronic controlled substance refill request - RxReferenceNumber: [id number]) metoprolol tartrate 100 mg tablet RxNorm: 901634 TAKE O NE TABLET BY MOUTH TWICE A DAY 04/24/2019 06/22/2019 Inactive cyclobenzaprine 10 mg tablet RxNorm: 402491 TAKE ONE TA BLET BY MOUTH THREE TIMES A DAY NEEDED FOR MUSCLE SPASMS 04/24/2019 05/18/2019 Inactive Lyrica 75 mg capsule RxNorm: 446490 1 Capsule(s) PO QHS 03/25/2019 Inactive duloxetine 60 mg capsule,delayed release RxNorm: 185736 TAKE ONE CAPSULE BY MOUTH DAILY 03/21/2019 05/19/2019 Inactive triamterene 75 mg-hydrochlorothiazide 50 mg tablet RxNorm: 3 35156 TAKE ONE TABLET BY MOUTH DAILY 03/21/2019 05/19/2019 Inactive Klor-Con 8 mEq tablet,extended release RxNorm: 393765 T FARRUKH ONE TABLET BY MOUTH TWICE A DAY 03/21/2019 09/18/2019 Inactive Lipitor 10 mg tablet RxNorm: 876961 TAKE ONE TABLET BY MOUTH AT BEDTIME 03/21/2019 09/10/2019 Inactive clonidine HCl 0.1 mg tablet RxNorm: 617546 TAKE ONE TAB LET BY MOUTH FOUR TIMES A DAY 03/21/2019 05/19/2019 Inactive allopurinol 300 mg tablet RxNorm: 100976 TAKE ONE TABLET BY LOPEZ TH DAILY 03/21/2019 05/19/2019 Inactive hydrocodone 10 mg-acetaminophen 325 mg tablet RxNorm: 652908 1-2 Tablet(s) PO QID as needed for pain MUST LAST 30 DAYS 02/28/2019 03/29/2019 Inactiv e (Response to an electronic controlled substance refill request [id number]) furosemide 40 mg tablet RxNorm: 571096 TAKE ONE TABLET BY MOUTH EVERY MORNING NEEDED FOR EDEMA . TAKE WITH POTASSIUM 02/21/2019 03/22/2019 Inactive cyclobenzaprine 10 mg tablet RxNorm: 618095 TAKE ONE TA BLET BY MOUTH THREE TIMES A DAY NEEDED FOR MUSCLE SPASMS 02/21/2019 04/21/2019 Inactive lisinopril 20 mg tablet RxNorm: 411092 TAKE ONE TABLET BY MOUTH DAILY, REPLACES 10 MG DOSE 02/21/2019 05/15/2019 Inactive doxepin 25 mg capsule RxNorm: 8109486 TAKE ONE CAPSULE B Y MOUTH EVERY NIGHT AT BEDTIME NEEDED FOR SLEEP 02/21/2019 05/15/2019 Inactive nystatin 100,000 unit/gram topical cream RxNorm: 666860 APPLY TO AFFECTED AREA(S) TWO TIMES A DAY 02/21/2019 03/22/2019 Inactive estradiol 1 mg tablet RxNorm: 052583 2 Tablet(s) PO QD replaces premarin 01/22/2019 05/04/2019 Inactive lisinopril 20 mg tablet RxNorm: 774430 TAKE ONE TABLET BY MOUTH DAILY, REPLACES 10 MG DOSE 01/20/2019 02/18/2019 Inactive cyclobenzaprine 10 mg tablet RxNorm: 143955 TAKE ONE TA BLET BY MOUTH THREE TIMES A DAY NEEDED FOR MUSCLE SPASMS 01/20/2019 02/18/2019 Inactive metoprolol tartrate 100 mg tablet RxNorm: 727619 TAKE O NE TABLET BY MOUTH TWICE A DAY 01/20/2019 02/18/2019 Inactive cyclobenzaprine 10 mg tablet RxNorm: 318810 TAKE ONE TA BLET BY MOUTH THREE TIMES A DAY NEEDED FOR MUSCLE SPASMS 12/19/2018 01/17/2019 Inactive lisinopril 20 mg tablet RxNorm: 688038 TAKE ONE TABLET BY MOUTH DAILY, REPLACES 10 MG DOSE 12/19/2018 01/17/2019 Inactive duloxetine 60 mg capsule,delayed release RxNorm: 602344 TAKE ONE CAPSULE BY MOUTH DAILY 12/19/2018 01/17/2019 Inactive Lipitor 10 mg tablet RxNorm: 202996 TAKE ONE TABLET BY MOUTH AT BEDTIME 12/19/2018 01/17/2019 Inactive cyclobenzaprine 10 mg tablet RxNorm: 461176 1 Tablet(s) PO TID as needed for muscle spasm 11/19/2018 12/18/2018 Inactive Singulair 10 mg tablet RxNorm: 853214 1 Tablet(s) PO QD 11/19/2018 Inactive lisinopril 20 mg tablet RxNorm: 696729 TAKE ONE TABLET BY MOUTH DAILY, REPLACES 10 MG DOSE 11/15/2018 12/18/2018 Inactive hydrocodone 10 mg-acetaminophen 325 mg tablet RxNorm: 114979 1-2 Tablet(s) PO QID as needed for pain MUST LAST 30 DAYS 11/13/2018 12/12/2018 Inactiv e (Response to an electronic controlled substance refill request - RxReferenceNumber: [id number]) nystatin 100,000 unit/gram topical cream RxNorm: 836939 APPLY TO AFFECTED AREA(S) TWO TIMES A DAY 10/23/2018 11/06/2018 Inactive lisinopril 20 mg tablet RxNorm: 207272 1 Tablet(s) PO QD replac es 10mg dose 10/18/2018 11/14/2018 Inactive hydrocodone 10 mg-acetaminophen 325 mg tablet RxNorm: 945060 1-2 Tablet(s) QID as needed for pain MUST LAST 30 DAYS 10/08/2018 11/06/2018 Inactive (Response to an electronic controlled substance refill request - RxReferenceNumber: [id number]) lisinopril 10 mg tablet RxNorm: 399516 1 Tablet(s) PO QD 10/03/2018 0 01/21/2019 Inactive Celebrex 200 mg capsule RxNorm: 720695 TAKE ONE CAPSULE BY MOUT H TWICE A DAY 09/30/2018 05/04/2019 Inactive cyclobenzaprine 10 mg tablet RxNorm: 057493 TAKE ONE TA BLET BY MOUTH THREE TIMES A DAY NEEDED FOR MUSCLE SPASMS 09/30/2018 11/18/2018 Inactive doxepin 25 mg capsule RxNorm: 2084489 TAKE ONE CAPSULE B Y MOUTH EVERY NIGHT AT BEDTIME NEEDED 09/05/2018 10/16/2018 Inactive omeprazole 40 mg capsule,delayed release RxNorm: 460292 TAKE ONE CAPSULE BY MOUTH DAILY 09/05/2018 01/21/2019 Inactive furosemide 40 mg tablet RxNorm: 334390 TAKE ONE TABLET BY MOUTH EVERY MORNING NEEDED FOR EDEMA . TAKE WITH POTASSIUM 09/05/2018 11/03/2018 Inactive phentermine 37.5 mg tablet RxNorm: 485368 1 Tablet(s) PO QAM 201701/21/2019 Inactive doxepin 25 mg capsule RxNorm: 9987555 1 Capsule(s) PO QH S as needed for sleep TAKE ONE CAPSULE BY MOUTH EVERY NIGHT AT BEDTIME NEEDED 08/27/2018 09/04/2018 Inactive Keflex 500 mg capsule RxNorm: 573877 1 Capsule(s) PO TID 08/09/2018 1 10/19/2017 Inactive Diflucan 100 mg tablet RxNorm: 561346 1 Tablet(s) PO QD 08/09/2018 Inactive Premarin 1.25 mg tablet RxNorm: 369891 2 Tablet(s) PO QD 08/09/2018 0 05/04/2019 Inactive Zofran ODT 4 mg disintegrating tablet RxNorm: 593031 1 Tablet(s) PO Q4H as needed for nausea 08/09/2018 01/21/2019 Inactive metoprolol tartrate 100 mg tablet RxNorm: 854440 TAKE O NE TABLET BY MOUTH TWICE A DAY 2018 10/04/2018 Inactive doxepin 25 mg capsule RxNorm: 8152135 TAKE ONE CAPSULE B Y MOUTH EVERY NIGHT AT BEDTIME NEEDED 2018 08/26/2018 Inactive cyclobenzaprine 10 mg tablet RxNorm: 839231 TAKE ONE TA BLET BY MOUTH THREE TIMES A DAY NEEDED FOR MUSCLE SPASMS 2018 09/29/2018 Inactive hydrocodone 10 mg-acetaminophen 325 mg tablet RxNorm: 335981 1-2 Tablet(s) QID as needed for pain MUST LAST 30 DAYS 07/29/2018 08/27/2018 Inactive (Response to an electronic controlled substance refill request - RxReferenceNumber: [id number]) nystatin 100,000 unit/gram topical powder RxNorm: 269496 Applic ation TOP BID 07/22/2018 08/04/2018 Inactive doxepin 25 mg capsule RxNorm: 8877765 1 Capsule(s) PO QHS as needed 07/22/2018 08/05/2018 Inactive triamterene 75 mg-hydrochlorothiazide 50 mg tablet RxNorm: 3 11847 TAKE ONE TABLET BY MOUTH DAILY 07/05/2018 10/02/2018 Inactive duloxetine 60 mg capsule,delayed release RxNorm: 973761 TAKE ONE CAPSULE BY MOUTH DAILY 07/05/2018 09/02/2018 Inactive Klor-Con 8 mEq tablet,extended release RxNorm: 334444 T FARRUKH ONE TABLET BY MOUTH TWICE A DAY 07/05/2018 10/02/2018 Inactive Lipitor 10 mg tablet RxNorm: 262337 TAKE ONE TABLET BY MOUTH AT BEDTIME 07/05/2018 09/02/2018 Inactive allopurinol 300 mg tablet RxNorm: 515250 TAKE ONE TABLET BY LOPEZ TH DAILY 07/05/2018 10/02/2018 Inactive clonidine HCl 0.1 mg tablet RxNorm: 328326 TAKE ONE TAB LET BY MOUTH FOUR TIMES A DAY 07/05/2018 10/02/2018 Inactive hydrocodone 10 mg-acetaminophen 325 mg tablet RxNorm: 870242 1-2 Tablet(s) QID as needed for pain MUST LAST 30 DAYS 06/28/2018 07/27/2018 Inactive (Response to an electronic controlled substance refill request - RxReferenceNumber: [id number]) MediHoney (calcium alginate-honey) 4" X 5" bandage RxNorm: 1 Application TOP QD 06/17/2018 06/26/2018 Inactive honey-hydrocolloid dressing 4" X 5" RxNorm: 1 Application TOP QD 06/17/2018 07/16/2018 Inactive furosemide 40 mg tablet RxNorm: 494454 TAKE ONE TABLET BY MOUTH EVERY MORNING NEEDED FOR EDEMA . TAKE WITH POTASSIUM 06/10/2018 07/09/2018 Inactive This is a refill request. hydrocodone 10 mg-acetaminophen 325 mg tablet RxNorm: 626270 1-2 Tablet(s) QID as needed for pain MUST LAST 30 DAYS 05/30/2018 06/27/2018 Inactive (Response to an electronic controlled substance refill request - RxReferenceNumber: [id number]) acyclovir 800 mg tablet RxNorm: 789535 1 Tablet(s) PO 5x day 201705/22/2018 Inactive Premarin 1.25 mg tablet RxNorm: 094890 1-2 Tablet(s) PO QD 05/15/20 18 07/13/2018 Inactive cyclobenzaprine 10 mg tablet RxNorm: 312718 1 Tablet(s) PO TID as needed for muscle spasm 05/09/2018 05/08/2018 Inactive Medrol (Dustin) 4 mg tablets in a dose pack RxNorm: 362671 Tablet(s) PO As Directed 05/02/2018 06/16/2018 Inactive hydrocodone 10 mg-acetaminophen 325 mg tablet RxNorm: 887066 1-2 Tablet(s) QID as needed for pain MUST LAST 30 DAYS 04/30/2018 05/29/2018 Inactive (Response to an electronic controlled substance refill request - RxReferenceNumber: [id number]) duloxetine 60 mg capsule,delayed release RxNorm: 891305 TAKE ONE CAPSULE BY MOUTH DAILY 04/16/2018 05/15/2018 Inactive Celebrex 200 mg capsule RxNorm: 729505 TAKE ONE CAPSULE BY MOUT H TWICE A DAY 04/16/2018 06/14/2018 Inactive Singulair 10 mg tablet RxNorm: 324107 TAKE ONE TABLET BY MOUTH JOSÉ Y 04/16/2018 11/19/2018 Inactive Lipitor 10 mg tablet RxNorm: 270051 TAKE ONE TABLET BY MOUTH AT BEDTIME 04/16/2018 05/15/2018 Inactive hydrocodone 10 mg-acetaminophen 325 mg tablet RxNorm: 059185 1-2 Tablet(s) QID as needed for pain MUST LAST 30 DAYS 03/29/2018 04/27/2018 Inactive (Response to an electronic controlled substance refill request - RxReferenceNumber: [id number]) cyclobenzaprine 10 mg tablet RxNorm: 420258 1 Tablet(s) PO TID as needed for muscle spasm 03/18/2018 05/09/2018 Inactive omeprazole 40 mg capsule,delayed release RxNorm: 128875 1 Capsu le(s) PO QD 02/26/2018 08/24/2018 Inactive hydrocodone 10 mg-acetaminophen 325 mg tablet RxNorm: 455627 1-2 Tablet(s) QID as needed for pain MUST LAST 30 DAYS 02/26/2018 03/27/2018 Inactive (Response to an electronic controlled substance refill request - RxReferenceNumber: [id number]) metoprolol tartrate 100 mg tablet RxNorm: 146644 1 Tablet(s) PO BID 02/18/2018 08/05/2018 Inactive Lyrica 75 mg capsule RxNorm: 761000 1 Capsule(s) PO QHS 01/30/2018 Inactive phentermine 37.5 mg tablet RxNorm: 966086 1 Tablet(s) PO QAM 201706/16/2018 Inactive hydrocodone 10 mg-acetaminophen 325 mg tablet RxNorm: 688423 1-2 Tablet(s) QID as needed for pain MUST LAST 30 DAYS 01/29/2018 02/25/2018 Inactive (Response to an electronic controlled substance refill request - RxReferenceNumber: [id number]) Klor-Con 8 mEq tablet,extended release RxNorm: 649467 1 Tablet( s) PO BID 01/14/2018 07/04/2018 Inactive allopurinol 300 mg tablet RxNorm: 206383 1 Tablet(s) PO QD 01/15/2007/04/2018 Inactive Lipitor 10 mg tablet RxNorm: 125062 1 Tablet(s) PO QHS 01/14/201812/2017 Inactive triamterene 75 mg-hydrochlorothiazide 50 mg tablet RxNorm: 3 56890 1 Tablet(s) PO QD 01/14/2018 07/04/2018 Inactive hydrocodone 10 mg-acetaminophen 325 mg tablet RxNorm: 633553 1-2 Tablet(s) QID as needed for pain MUST LAST 30 DAYS 12/27/2017 01/25/2018 Inactive (Response to an electronic controlled substance refill request - RxReferenceNumber: [id number]) Onglyza 5 mg tablet RxNorm: 049476 1 Tablet(s) PO QD 12/18/201701/29 Inactive metformin 500 mg tablet RxNorm: 023957 1 Tablet(s) PO BID 12/11/2017 12/10/2017 Inactive metformin 500 mg tablet RxNorm: 408361 1 Tablet(s) PO BID 12/11/2017 12/17/2017 Inactive furosemide 40 mg tablet RxNorm: 119087 1 Tablet(s) PO Q AM prn edema--take with potassium 12/11/2017 06/08/2018 Inactive cyclobenzaprine 10 mg tablet RxNorm: 931381 1 Tablet(s) PO TID as needed for muscle spasm 12/11/2017 03/18/2018 Inactive hydrocodone 10 mg-acetaminophen 325 mg tablet RxNorm: 114618 1-2 Tablet(s) QID as needed for pain MUST LAST 30 DAYS 10/23/2017 11/21/2017 Inactive (Response to an electronic controlled substance refill request - RxReferenceNumber: [id number]) Lipitor 10 mg tablet RxNorm: 656175 1 Tablet(s) PO QHS 10/16/201703/2018 Inactive cyclobenzaprine 10 mg tablet RxNorm: 012347 1 Tablet(s) PO TID as needed for muscle spasm 10/09/2017 12/10/2017 Inactive hydroxyzine HCl 25 mg tablet RxNorm: 384316 1 Tablet(s) PO BID as needed for anxiety 09/20/2017 01/29/2018 Inactive Effexor XR 75 mg capsule,extended release RxNorm: 960816 1 Caps ule(s) PO QD 09/20/2017 01/29/2018 Inactive metoprolol tartrate 100 mg tablet RxNorm: 420683 1 Tablet(s) PO BID 08/20/2017 02/18/2018 Inactive baclofen 20 mg tablet RxNorm: 930884 1 Tablet(s) PO TID as needed for muscle spasm 08/20/2017 01/21/2019 Inactive clonidine HCl 0.1 mg tablet RxNorm: 009833 1 Tablet(s) PO QID 08/2005/16/2018 Inactive Seroquel 25 mg tablet RxNorm: 618929 1 Tablet(s) PO QHS 08/17/2017 Inactive Seroquel 25 mg tablet RxNorm: 144400 1 Tablet(s) PO QHS 08/17/2017 Inactive Diflucan 100 mg tablet RxNorm: 416736 TAKE ONE TABLET BY MOUTH JOSÉ Y 07/25/2017 08/07/2017 Inactive hydrocodone 10 mg-acetaminophen 325 mg tablet RxNorm: 052544 1-2 Tablet(s) QID as needed for pain MUST LAST 30 DAYS 07/19/2017 08/17/2017 Inactive (Response to an electronic controlled substance refill request - RxReferenceNumber: [id number]) clindamycin 300 mg capsule RxNorm: 279179 1 Capsule(s) PO TID 07/1907/28/2017 Inactive clotrimazole-betamethasone 1 %-0.05 % topical cream RxNorm: 228177 Application TOP BID to elbow rash 07/19/2017 06/16/2018 Inactive Singulair 10 mg tablet RxNorm: 996942 Tablet(s) TAKE ONE TABLET BY MOUTH DAILY 07/18/2017 04/13/2018 Inactive triamterene 75 mg-hydrochlorothiazide 50 mg tablet RxNorm: 3 95791 1 Tablet(s) PO QD 07/18/2017 01/14/2018 Inactive Celebrex 200 mg capsule RxNorm: 993819 Capsule(s) TAKE ONE CAPSULE BY MOUTH TWICE A DAY 07/18/2017 10/15/2017 Inactive hydrocodone 10 mg-acetaminophen 325 mg tablet RxNorm: 201966 1-2 Tablet(s) QID as needed for pain MUST LAST 30 DAYS 06/19/2017 07/18/2017 Inactive (Response to an electronic controlled substance refill request - RxReferenceNumber: [id number]) hydrocodone 10 mg-acetaminophen 325 mg tablet RxNorm: 495004 1-2 Tablet(s) QID as needed for pain MUST LAST 30 DAYS 06/19/2017 06/18/2017 Inactive (Response to an electronic controlled substance refill request - RxReferenceNumber: [id number]) baclofen 20 mg tablet RxNorm: 732912 1 Tablet(s) PO TID as needed for muscle spasm 06/18/2017 08/20/2017 Inactive Medrol (Dustin) 4 mg tablets in a dose pack RxNorm: 867188 Tablet(s) PO As Directed 06/05/2017 07/18/2017 Inactive omeprazole 40 mg capsule,delayed release RxNorm: 273553 1 Capsu le(s) PO QD 04/20/2017 10/16/2017 Inactive Premarin 1.25 mg tablet RxNorm: 066238 1-2 Tablet(s) PO QD 04/11/20 17 05/15/2018 Inactive duloxetine 60 mg capsule,delayed release RxNorm: 744590 1 Capsu le(s) PO QD 04/11/2017 09/19/2017 Inactive furosemide 40 mg tablet RxNorm: 488887 1 Tablet(s) PO Q AM prn edema--take with potassium 04/11/2017 12/11/2017 Inactive Klor-Con 8 mEq tablet,extended release RxNorm: 878334 1 Tablet( s) PO BID 04/11/2017 01/14/2018 Inactive Lipitor 10 mg tablet RxNorm: 732233 1 Tablet(s) PO QHS 04/11/201702/2018 Inactive amlodipine 5 mg-benazepril 20 mg capsule RxNorm: 710742 1 Capsu le(s) PO QD 04/11/2017 01/29/2018 Inactive allopurinol 300 mg tablet RxNorm: 627608 1 Tablet(s) PO QD 04/11/2001/14/2018 Inactive clonidine HCl 0.1 mg tablet RxNorm: 994598 1 Tablet(s) PO QID 04/0508/19/2017 Inactive baclofen 20 mg tablet RxNorm: 210282 1 Tablet(s) PO TID as needed for muscle spasm 04/02/2017 06/18/2017 Inactive Premarin 1.25 mg tablet RxNorm: 059973 1-2 Tablet(s) PO QD 03/20/20 17 04/10/2017 Inactive hydrocodone 10 mg-acetaminophen 325 mg tablet RxNorm: 691981 1-2 Tablet(s) QID as needed for pain MUST LAST 30 DAYS 03/14/2017 01/21/2019 Inactive (Response to an electronic controlled substance refill request - RxReferenceNumber: [id number]) metoprolol tartrate 100 mg tablet RxNorm: 041833 1 Tablet(s) PO BID 02/12/2017 08/20/2017 Inactive hydrocodone 10 mg-acetaminophen 325 mg tablet RxNorm: 604346 1-2 Tablet(s) QID as needed for pain MUST LAST 30 DAYS 02/08/2017 03/09/2017 Inactive (Response to an electronic controlled substance refill request - RxReferenceNumber: [id number]) metoprolol tartrate 100 mg tablet RxNorm: 704236 TAKE O NE TABLET BY MOUTH TWICE A DAY 01/11/2017 02/12/2017 Inactive metoprolol tartrate 100 mg tablet RxNorm: 721322 1 Tablet(s) PO BID 12/18/2016 12/17/2016 Inactive metoprolol tartrate 100 mg tablet RxNorm: 743106 1 Tablet(s) PO BID 12/18/2016 01/10/2017 Inactive furosemide 40 mg tablet RxNorm: 066308 1 Tablet(s) PO Q AM prn edema--take with potassium 12/13/2016 02/10/2017 Inactive amitriptyline 100 mg tablet RxNorm: 659882 1 Tablet(s) PO QHS 11/2812/12/2016 Inactive baclofen 20 mg tablet RxNorm: 693795 1 Tablet(s) PO TID as needed for muscle spasm 11/14/2016 04/01/2017 Inactive triamterene 75 mg-hydrochlorothiazide 50 mg tablet RxNorm: 3 25577 1 Tablet(s) PO QD 11/14/2016 11/13/2016 Inactive metolazone 2.5 mg tablet RxNorm: 800419 TAKE ONE TABLET BY MOUTH DAILY NEEDED FOR EDEMA 11/14/2016 12/12/2016 Inactive triamterene 75 mg-hydrochlorothiazide 50 mg tablet RxNorm: 3 53248 1 Tablet(s) PO QD 11/14/2016 07/18/2017 Inactive amitriptyline 50 mg tablet RxNorm: 289509 TAKE ONE TABL ET BY MOUTH AT BEDTIME NEEDED FOR SLEEP 11/14/2016 11/27/2016 Inactive Cymbalta 60 mg capsule,delayed release RxNorm: 986365 1 Capsule (s) PO QHS 11/14/2016 12/12/2016 Inactive clonidine HCl 0.1 mg tablet RxNorm: 662971 1 Tablet(s) PO QID 11/1304/04/2017 Inactive amitriptyline 50 mg tablet RxNorm: 543448 1 Tablet(s) P O QHS as needed for sleep 11/01/2016 11/27/2016 Inactive duloxetine 60 mg capsule,delayed release RxNorm: 224979 TAKE ONE CAPSULE BY MOUTH DAILY 10/20/2016 01/17/2017 Inactive allopurinol 300 mg tablet RxNorm: 324869 TAKE ONE TABLET BY LOPEZ TH DAILY 10/20/2016 01/16/2017 Inactive Lyrica 75 mg capsule RxNorm: 771232 TAKE ONE CAPSULE BY MOUTH EVERY NIGHT AT BEDTIME 10/20/2016 12/10/2016 Inactive Klor-Con 8 mEq tablet,extended release RxNorm: 716727 T FARRUKH ONE TABLET BY MOUTH TWICE A DAY 10/20/2016 01/17/2017 Inactive Celebrex 200 mg capsule RxNorm: 523149 TAKE ONE CAPSULE BY MOUT H TWICE A DAY 10/20/2016 07/18/2017 Inactive Bystolic 10 mg tablet RxNorm: 116496 TAKE ONE TABLET BY MOUTH EVERY NIGHT AT BEDTIME 10/20/2016 12/17/2016 Inactive amlodipine 5 mg-benazepril 20 mg capsule RxNorm: 435055 TAKE ONE CAPSULE BY MOUTH EVERY NIGHT AT BEDTIME -- TO REPLACE AMLODOPINE 10/20/20162016 Inactive Lipitor 10 mg tablet RxNorm: 299527 TAKE ONE TABLET BY MOUTH EVERY NIGHT AT BEDTIME 10/20/2016 01/17/2017 Inactive alprazolam 0.5 mg tablet RxNorm: 652502 3 Tablet(s) PO QHS as needed for sleep/anxiety 09/20/2016 10/31/2016 Inactive Tamiflu 75 mg capsule RxNorm: 391186 1 Capsule(s) PO QD 09/19/2016 Inactive Lyrica 75 mg capsule RxNorm: 493495 1 Capsule(s) PO QHS 09/19/2016 Inactive prednisone 20 mg tablet RxNorm: 691961 1 Tablet(s) PO QD 08/10/2016 1 10/17/2015 Inactive doxycycline hyclate 100 mg capsule RxNorm: 9328767 1 Capsule(s) PO BID 08/10/2016 08/19/2016 Inactive Medrol (Dustin) 4 mg tablets in a dose pack RxNorm: 832925 Tablet(s) PO As Directed 07/31/2016 08/22/2016 Inactive Singulair 10 mg tablet RxNorm: 979853 TAKE ONE TABLET BY MOUTH OJSÉ Y 07/27/2016 07/18/2017 Inactive hydrocodone 10 mg-acetaminophen 325 mg tablet RxNorm: 782450 1-2 Tablet(s) QID as needed for pain MUST LAST 30 DAYS 07/26/2016 08/24/2016 Inactive (Response to an electronic controlled substance refill request - RxReferenceNumber: [id number]) alprazolam 0.5 mg tablet RxNorm: 012239 3 Tablet(s) PO QHS as needed for anxiety or sleep 07/26/2016 09/20/2016 Inactive clindamycin 300 mg capsule RxNorm: 993257 1 Capsule(s) PO TID 07/2007/29/2016 Inactive Diflucan 100 mg tablet RxNorm: 878534 1 Tablet(s) PO QD 07/20/2016 Inactive Levaquin 500 mg tablet RxNorm: 731860 1 Tablet(s) PO QD 07/17/2016 Inactive Levaquin 500 mg tablet RxNorm: 346374 1 Tablet(s) PO QD 07/10/2016 Inactive Levaquin 500 mg tablet RxNorm: 693597 1 Tablet(s) PO QD 07/10/2016 Inactive mupirocin 2 % topical ointment RxNorm: 139263 TOP Apply topically to affected areas twice daily 07/06/2016 09/18/2016 Inactive Singulair 10 mg tablet RxNorm: 615709 TAKE ONE TABLET BY MOUTH JOSÉ Y 06/21/2016 01/21/2019 Inactive alprazolam 0.5 mg tablet RxNorm: 703336 TAKE THREE TABL ETS BY MOUTH AT BEDTIME NEEDED FOR SLEEP OR STRESS 05/22/2016 06/20/2016 Inactive triamterene 75 mg-hydrochlorothiazide 50 mg tablet RxNorm: 3 77489 1 Tablet(s) PO QD 04/26/2016 10/21/2016 Inactive Premarin 1.25 mg tablet RxNorm: 531287 1-2 Tablet(s) PO QD 04/26/20 16 03/20/2017 Inactive Klor-Con 8 mEq tablet,extended release RxNorm: 440516 1 Tablet( s) PO BID 04/26/2016 10/19/2016 Inactive Celebrex 200 mg capsule RxNorm: 338950 1 Capsule(s) PO BID TAKE ONE CAPSULE BY MOUTH EVERY DAY 04/26/2016 10/19/2016 Inactive Lipitor 10 mg tablet RxNorm: 711601 1 Tablet(s) PO QHS 04/26/201605/2017 Inactive allopurinol 300 mg tablet RxNorm: 200470 1 Tablet(s) PO QD TAKE ONE TABLET BY MOUTH EVERY DAY 04/26/2016 10/19/2016 Inactive amlodipine 5 mg-benazepril 20 mg capsule RxNorm: 932649 1 Capsule(s) PO QHS replaces amlodopine 04/26/2016 10/19/2016 Inactive duloxetine 60 mg capsule,delayed release RxNorm: 671749 1 Capsu le(s) PO QD 04/26/2016 10/19/2016 Inactive Bystolic 10 mg tablet RxNorm: 588494 1 Tablet(s) PO QHS 04/26/2016 Inactive Singulair 10 mg tablet RxNorm: 010847 1 Tablet(s) PO QD TAKE ONE TABLET BY MOUTH DAILY 04/26/2016 06/20/2016 Inactive clonidine HCl 0.1 mg tablet RxNorm: 552785 1 Tablet(s) PO QID 04/2610/22/2016 Inactive hydrocodone 10 mg-acetaminophen 325 mg tablet RxNorm: 622589 1-2 Tablet(s) QID as needed for pain TAKE ONE TO TWO TABLETS BY MOUTH FOUR TIMES A DAY . MUST LAST 30 DAYS 03/31/2016 04/29/2016 Inactive (Response to an electronic controlled substance refill request - RxReferenceNumber: [id number]) Klor-Con 8 mEq tablet,extended release RxNorm: 821855 T FARRUKH ONE TABLET BY MOUTH TWICE A DAY 03/24/2016 09/29/2019 Inactive prednisone 20 mg tablet RxNorm: 302652 1 Tablet(s) PO QD 03/09/2016 0 03/08/2016 Inactive prednisone 20 mg tablet RxNorm: 890236 1 Tablet(s) PO QD 03/09/2016 0 03/13/2016 Inactive alprazolam 0.5 mg tablet RxNorm: 784776 3 Tablet(s) PO QHS as needed for sleep/stress 03/02/2016 01/21/2019 Inactive mupirocin 2 % topical ointment RxNorm: 628415 TOP twice daily to affected areas of face and neck 02/21/2016 04/25/2016 Inactive clonidine HCl 0.1 mg tablet RxNorm: 845993 TAKE ONE TAB LET BY MOUTH FOUR TIMES A DAY 02/15/2016 09/29/2019 Inactive clonidine HCl 0.1 mg tablet RxNorm: 218160 1 Tablet(s) PO QID 02/1404/25/2016 Inactive Premarin 1.25 mg tablet RxNorm: 593125 1-2 Tablet(s) PO QD 02/15/20 16 03/15/2016 Inactive Klor-Con 8 mEq tablet,extended release RxNorm: 020087 T FARRUKH ONE TABLET BY MOUTH TWICE A DAY 02/15/2016 03/15/2016 Inactive potassium chloride ER 20 mEq tablet,extended release(part/cr yst) RxNorm: 403387 2 Tablet(s) PO BID 02/15/2016 03/15/2016 Inactive Macrobid 100 mg capsule RxNorm: 067887 1 Capsule(s) PO BID 01/24/2001/30/2016 Inactive prednisone 20 mg tablet RxNorm: 337177 Take 3tabs PO QD x 2 days, then 2 tabs PO QD x 2 days, then 1 tab PO QD x 2 days, then 1/2 tab PO QDy x 2 days 12/23/2015 04/25/2016 Inactive Klor-Con 8 mEq tablet,extended release RxNorm: 506626 T FARRUKH ONE TABLET BY MOUTH TWICE A DAY 12/20/2015 02/14/2016 Inactive alprazolam 1 mg tablet RxNorm: 120204 1 1/2 Tablet(s) PO QHS 201501/23/2016 Inactive nystatin 100,000 unit/gram topical cream RxNorm: 685358 APPLY TO AFFECTED AREA(S) TWO TIMES A DAY 11/30/2015 12/14/2015 Inactive Singulair 10 mg tablet RxNorm: 383690 TAKE ONE TABLET BY MOUTH JOSÉ Y 11/18/2015 04/25/2016 Inactive allopurinol 300 mg tablet RxNorm: 455028 1 Tablet(s) PO QD TAKE ONE TABLET BY MOUTH EVERY DAY 10/26/2015 04/22/2016 Inactive Singulair 10 mg tablet RxNorm: 917604 TAKE ONE TABLET BY MOUTH JOSÉ Y 10/26/2015 11/17/2015 Inactive duloxetine 60 mg capsule,delayed release RxNorm: 459229 1 Capsu le(s) PO QD 10/26/2015 04/22/2016 Inactive triamterene 75 mg-hydrochlorothiazide 50 mg tablet RxNorm: 3 30019 1 Tablet(s) PO QD 10/26/2015 11/14/2016 Inactive potassium chloride ER 20 mEq tablet,extended release(part/cr yst) RxNorm: 968051 2 Tablet(s) PO BID 10/26/2015 02/14/2016 Inactive Lipitor 10 mg tablet RxNorm: 078700 1 Tablet(s) PO QHS 10/26/2015 Inactive amlodipine 5 mg-benazepril 20 mg capsule RxNorm: 784878 1 Capsule(s) PO QHS replaces amlodopine 10/26/2015 04/22/2016 Inactive Bystolic 10 mg tablet RxNorm: 505496 1 Tablet(s) PO QHS 10/26/2015 Inactive amlodipine 5 mg-benazepril 20 mg capsule RxNorm: 925698 1 Capsule(s) PO QHS replaces amlodopine 10/06/2015 10/25/2015 Inactive amlodipine 5 mg tablet RxNorm: 384109 1 Tablet(s) PO QHS 09/30/2015 0 04/25/2016 Inactive metolazone 2.5 mg tablet RxNorm: 636124 TAKE ONE TABLET BY MOUTH DAILY NEEDED FOR EDEMA 09/30/2015 01/21/2019 Inactive duloxetine 60 mg capsule,delayed release RxNorm: 779700 1 Capsu le(s) PO QD 09/30/2015 10/25/2015 Inactive cephalexin 500 mg capsule RxNorm: 979079 1 Capsule(s) PO BID 201509/23/2015 Inactive mupirocin 2 % topical ointment RxNorm: 414477 TOP twice daily to affected areas of face and neck 09/14/2015 02/20/2016 Inactive baclofen 20 mg tablet RxNorm: 065211 1 Tablet(s) PO TID as needed for muscle spasm 09/01/2015 11/14/2016 Inactive clonidine HCl 0.1 mg tablet RxNorm: 788938 1 Tablet(s) PO QID 09/0102/14/2016 Inactive alprazolam 1 mg tablet RxNorm: 531211 1 1/2 Tablet(s) PO QHS 201409/09/2015 Inactive baclofen 20 mg tablet RxNorm: 644750 1 Tablet(s) PO TID as needed for muscle spasm 07/23/2015 09/01/2015 Inactive omeprazole 40 mg capsule,delayed release RxNorm: 644133 1 Capsu le(s) PO QD 07/23/2015 04/25/2016 Inactive alprazolam 1 mg tablet RxNorm: 000892 1 1/2 Tablet(s) PO QHS 201408/10/2015 Inactive Bystolic 10 mg tablet RxNorm: 880109 1 Tablet(s) PO BID 06/24/2015 Inactive allopurinol 300 mg tablet RxNorm: 734485 1 Tablet(s) PO QD TAKE ONE TABLET BY MOUTH EVERY DAY 06/23/2015 10/20/2015 Inactive alprazolam 1 mg tablet RxNorm: 216895 1 1/2 Tablet(s) PO QHS 201407/06/2015 Inactive clonidine HCl 0.1 mg tablet RxNorm: 607453 1 Tablet(s) PO QID 06/0209/01/2015 Inactive clonidine HCl 0.1 mg tablet RxNorm: 729184 1 Tablet(s) PO QID 06/0206/01/2015 Inactive Cymbalta 60 mg capsule,delayed release RxNorm: 478283 1 Capsule (s) PO QHS 06/02/2015 08/30/2015 Inactive Cymbalta 60 mg capsule,delayed release RxNorm: 977739 1 Capsule (s) PO QHS 06/02/2015 06/01/2015 Inactive clonidine HCl 0.1 mg tablet RxNorm: 167523 1 Tablet(s) PO TID 05/3106/01/2015 Inactive replaces 0.2mg dose metolazone 2.5 mg tablet RxNorm: 529666 TAKE ONE TABLET BY MOUTH DAILY NEEDED FOR EDEMA 05/21/2015 06/19/2015 Inactive Singulair 10 mg tablet RxNorm: 161293 TAKE ONE TABLET BY MOUTH JOSÉ Y 05/21/2015 10/17/2015 Inactive Cymbalta 30 mg capsule,delayed release RxNorm: 230706 1 Capsule (s) PO QHS 05/20/2015 11/14/2016 Inactive betamethasone valerate 0.1 % topical cream RxNorm: 301502 Appli cation TOP BID 05/10/2015 04/25/2016 Inactive Bactroban 2 % topical ointment RxNorm: 927240 Application TOP BID 0 05/10/2015 06/20/2015 Inactive baclofen 20 mg tablet RxNorm: 648471 1 Tablet(s) PO TID as needed 0 04/26/2015 07/23/2015 Inactive Lipitor 10 mg tablet RxNorm: 363380 1 Tablet(s) PO QHS 04/26/201508/2016 Inactive clonidine HCl 0.1 mg tablet RxNorm: 754897 1 Tablet(s) PO TID 04/2605/30/2015 Inactive replaces 0.2mg dose Klor-Con 8 mEq tablet,extended release RxNorm: 921384 1 Tablet( s) PO BID 04/26/2015 04/25/2016 Inactive metolazone 2.5 mg tablet RxNorm: 088952 1 Tablet(s) PO QD as ne eded for edema 04/26/2015 04/25/2015 Inactive triamterene 75 mg-hydrochlorothiazide 50 mg tablet RxNorm: 3 86950 1 Tablet(s) PO QD 04/26/2015 10/22/2015 Inactive Premarin 1.25 mg tablet RxNorm: 223426 1-2 Tablet(s) PO QD 04/26/20 15 10/22/2015 Inactive Bystolic 10 mg tablet RxNorm: 360106 1 Tablet(s) PO QAM TAKE ONE TABLET BY MOUTH EVERY MORNING 04/23/2015 06/23/2015 Inactive clonidine HCl 0.1 mg tablet RxNorm: 607047 1 Tablet(s) PO TID 03/2304/25/2015 Inactive replaces 0.2mg dose nystatin 100,000 unit/gram topical cream RxNorm: 099198 Applica tion TOP BID 03/23/2015 06/20/2015 Inactive baclofen 20 mg tablet RxNorm: 906997 1 Tablet(s) PO TID as needed 0 03/23/2015 04/25/2015 Inactive Premarin 1.25 mg tablet RxNorm: 661364 1-2 Tablet(s) PO QD 03/23/20 15 04/25/2015 Inactive Klor-Con 8 mEq tablet,extended release RxNorm: 641817 1 Tablet( s) PO BID 03/23/2015 04/25/2015 Inactive cefdinir 300 mg capsule RxNorm: 337909 2 Capsule(s) PO QD 03/16/2015 03/25/2015 Inactive baclofen 20 mg tablet RxNorm: 772912 1 Tablet(s) PO TID as needed 0 03/02/2015 03/22/2015 Inactive allopurinol 300 mg tablet RxNorm: 371151 1 Tablet(s) PO QD TAKE ONE TABLET BY MOUTH EVERY DAY 02/22/2015 05/22/2015 Inactive Klor-Con M20 mEq tablet,extended release RxNorm: 542731 2 Tablet(s) PO BID to use with lasix 02/22/2015 06/20/2015 Inactive clonidine HCl 0.1 mg tablet RxNorm: 482573 1 Tablet(s) PO TID 02/1903/22/2015 Inactive replaces 0.2mg dose Lipitor 10 mg tablet RxNorm: 981472 1 Tablet(s) PO QHS 01/20/201506/2015 Inactive Lipitor 10 mg tablet RxNorm: 868766 1 Tablet(s) PO QHS 01/20/2015 Inactive Singulair 10 mg tablet RxNorm: 831917 1 Tablet(s) PO QD TAKE ONE TABLET BY MOUTH EVERY DAY 11/20/2014 05/18/2015 Inactive Lipitor 10 mg tablet RxNorm: 153091 1 Tablet(s) PO QHS 11/20/201408/2015 Inactive allopurinol 300 mg tablet RxNorm: 293724 1 Tablet(s) PO QD TAKE ONE TABLET BY MOUTH EVERY DAY 11/20/2014 02/16/2015 Inactive Bystolic 10 mg tablet RxNorm: 216068 1 Tablet(s) PO QAM TAKE ONE TABLET BY MOUTH EVERY MORNING 11/20/2014 04/22/2015 Inactive Klor-Con 8 mEq tablet,extended release RxNorm: 936287 1 Tablet( s) PO BID 11/20/2014 02/17/2015 Inactive baclofen 20 mg tablet RxNorm: 565634 1 Tablet(s) PO TID as needed 0 11/20/2014 01/21/2019 Inactive baclofen 20 mg tablet RxNorm: 628258 1 Tablet(s) PO TID as needed 0 10/27/2014 11/19/2014 Inactive baclofen 20 mg tablet RxNorm: 677128 1 Tablet(s) PO TID as needed 0 10/26/2014 03/01/2015 Inactive allopurinol 300 mg tablet RxNorm: 088383 1 Tablet(s) PO QD TAKE ONE TABLET BY MOUTH EVERY DAY 10/26/2014 11/20/2014 Inactive Bystolic 10 mg tablet RxNorm: 451697 1 Tablet(s) PO QAM TAKE ONE TABLET BY MOUTH EVERY MORNING 10/26/2014 11/20/2014 Inactive clonidine HCl 0.1 mg tablet RxNorm: 130676 1 Tablet(s) PO TID 09/2805/27/2019 Inactive replaces 0.2mg dose clonidine HCl 0.1 mg tablet RxNorm: 476067 1 Tablet(s) PO TID 09/2802/18/2015 Inactive replaces 0.2mg dose baclofen 20 mg tablet RxNorm: 645266 1 Tablet(s) PO TID as needed 1 11/01/2013 08/30/2014 Inactive Lipitor 10 mg tablet RxNorm: 427388 1 Tablet(s) PO QHS 08/31/2014 Inactive baclofen 20 mg tablet RxNorm: 584610 1 Tablet(s) PO TID as needed 1 11/01/2013 10/26/2014 Inactive triamterene 75 mg-hydrochlorothiazide 50 mg tablet RxNorm: 3 96514 1 Tablet(s) PO QD 08/31/2014 02/26/2015 Inactive Klor-Con 8 mEq tablet,extended release RxNorm: 968637 1 Tablet( s) PO BID 08/31/2014 11/20/2014 Inactive baclofen 20 mg tablet RxNorm: 463641 1 Tablet(s) PO TID as needed 1 09/30/2013 10/25/2014 Inactive baclofen 20 mg tablet RxNorm: 989734 1 Tablet(s) PO TID as needed 1 09/30/2013 08/31/2014 Inactive omeprazole 40 mg capsule,delayed release RxNorm: 763263 1 Capsu le(s) PO QD 07/21/2014 07/23/2015 Inactive Flonase 50 mcg/actuation nasal spray,suspension RxNorm: 8963 23 1 Crapo NASAL BID 07/15/2014 04/09/2017 Inactive hydrocodone 10 mg-acetaminophen 325 mg tablet RxNorm: 177178 1-2 Tablet(s) QID as needed for pain TAKE ONE TO TWO TABLETS BY MOUTH FOUR TIMES A DAY . MUST LAST 30 DAYS 06/30/2014 07/27/2014 Inactive (Response to an electronic controlled substance refill request - RxReferenceNumber: [id number]) baclofen 20 mg tablet RxNorm: 470080 1 Tablet(s) PO TID as needed 1 07/31/2014 Inactive Singulair 10 mg tablet RxNorm: 877254 1 Tablet(s) PO QD TAKE ONE TABLET BY MOUTH EVERY DAY 05/25/2014 11/20/2014 Inactive Bystolic 10 mg tablet RxNorm: 546927 TAKE ONE TABLET BY MOUTH E VERY MORNING 05/25/2014 09/21/2014 Inactive allopurinol 300 mg tablet RxNorm: 400111 1 Tablet(s) PO QD TAKE ONE TABLET BY MOUTH EVERY DAY 05/25/2014 10/21/2014 Inactive baclofen 20 mg tablet RxNorm: 497361 1 Tablet(s) PO TID as needed 0 05/25/2014 06/29/2014 Inactive allopurinol 300 mg tablet RxNorm: 787008 TAKE ONE TABLET BY LOPEZ TH EVERY DAY 05/25/2014 09/21/2014 Inactive Singulair 10 mg tablet RxNorm: 956208 1 Tablet(s) PO QD TAKE ONE TABLET BY MOUTH EVERY DAY 05/25/2014 05/24/2014 Inactive Bystolic 10 mg tablet RxNorm: 776692 1 Tablet(s) PO QAM TAKE ONE TABLET BY MOUTH EVERY MORNING 05/25/2014 10/21/2014 Inactive metolazone 2.5 mg tablet RxNorm: 792202 1 Tablet(s) PO QD as ne eded for edema 05/18/2014 04/25/2015 Inactive Lasix 40 mg tablet RxNorm: 826797 1 Tablet(s) PO QAM s hould take potassium supplementation with this medication 05/14/2014 05/17/2014 Inactive hydrocodone 10 mg-acetaminophen 325 mg tablet RxNorm: 499803 1-2 Tablet(s) QID as needed for pain TAKE ONE TO TWO TABLETS BY MOUTH FOUR TIMES A DAY . MUST LAST 30 DAYS 05/07/2014 06/05/2014 Inactive (Response to an electronic controlled substance refill request - RxReferenceNumber: [id number]) alprazolam 0.5 mg tablet RxNorm: 535221 TAKE ONE TABLET BY MOUTH TWICE A DAY , MUST LAST 30 DAYS 05/07/2014 05/22/2016 Inactive (Response to a n electronic controlled substance refill request - RxReferenceNumber: [id number]) diclofenac sodium 75 mg tablet,delayed release RxNorm: 47065 6 1 Tablet(s) PO BID for pain 04/24/2014 07/20/2014 Inactive Celebrex 200 mg capsule RxNorm: 185734 TAKE ONE CAPSULE BY MOUT H EVERY DAY 04/24/2014 07/20/2014 Inactive alprazolam 0.5 mg tablet RxNorm: 640226 TAKE ONE TABLET BY MOUTH TWICE A DAY , MUST LAST 30 DAYS 03/24/2014 04/22/2014 Inactive (Response to a n electronic controlled substance refill request - RxReferenceNumber: [id number]) diclofenac sodium 75 mg tablet,delayed release RxNorm: 13883 6 1 Tablet(s) PO BID for pain 03/24/2014 04/24/2014 Inactive clonidine HCl 0.1 mg tablet RxNorm: 799293 1 Tablet(s) PO TID 03/2409/28/2014 Inactive replaces 0.2mg dose Klor-Con 8 mEq tablet,extended release RxNorm: 924095 1 Tablet( s) PO BID 02/26/2014 08/31/2014 Inactive diclofenac sodium 75 mg tablet,delayed release RxNorm: 52006 6 1 Tablet(s) PO BID for pain 02/25/2014 03/24/2014 Inactive hydrocodone 10 mg-acetaminophen 325 mg tablet RxNorm: 923104 1-2 Tablet(s) QID as needed for pain TAKE ONE TO TWO TABLETS BY MOUTH FOUR TIMES A DAY . MUST LAST 30 DAYS 02/25/2014 03/26/2014 Inactive (Response to an electronic controlled substance refill request - RxReferenceNumber: [id number]) alprazolam 0.5 mg tablet RxNorm: 380673 Tablet(s) PO BI D as needed for anxiety TAKE ONE TABLET BY MOUTH TWICE A DAY , MUST LAST 30 DAYS 02/25/2014 Inactive (Response to an electronic controlled [place] bstance refill request - RxReferenceNumber: [id number]) [AttnRPh: Saving apply/adjudicate RxGRP:SG20 RxBIN:[id number] RxPCN: ID#:[id number]] alprazolam 0.5 mg tablet RxNorm: 211279 Tablet(s) TAKE ONE TABLET BY MOUTH TWICE A DAY , MUST LAST 30 DAYS 01/27/2014 02/24/2014 Inactive (Respo nse to an electronic controlled substance refill request - RxReferenceNumber: [id number]) [AttnRPh: Saving apply/adjudicate RxGRP:SG20 RxBIN:[id number] RxPCN: ID#:[id number]] hydrocodone 10 mg-acetaminophen 325 mg tablet RxNorm: 655016 1-2 Tablet(s) QID as needed for pain TAKE ONE TO TWO TABLETS BY MOUTH FOUR TIMES A DAY . MUST LAST 30 DAYS 01/27/2014 02/24/2014 Inactive (Response to an electronic controlled substance refill request - RxReferenceNumber: [id number]) alprazolam 0.5 mg tablet RxNorm: 184394 TAKE ONE TABLET BY MOUTH TWICE A DAY , MUST LAST 30 DAYS 01/27/2014 01/26/2014 Inactive (Response to a n electronic controlled substance refill request - RxReferenceNumber: [id number]) Premarin 1.25 mg tablet RxNorm: 827882 1-2 Tablet(s) PO QD 01/28/20 14 07/25/2014 Inactive alprazolam 0.5 mg tablet RxNorm: 817603 TAKE ONE TABLET BY MOUTH TWICE A DAY , MUST LAST 30 DAYS 01/27/2014 01/27/2014 Inactive (Response to a n electronic controlled substance refill request - RxReferenceNumber: [id number]) hydrocodone 10 mg-acetaminophen 325 mg tablet RxNorm: 164754 TAKE ONE TO TWO TABLETS BY MOUTH FOUR TIMES A DAY . MUST LAST 30 DAYS 01/27/20142013 Inactive (Response to an electronic controlled [place] bstance refill request - RxReferenceNumber: [id number]) Celebrex 200 mg capsule RxNorm: 745372 1 Capsule(s) PO QD TAKE ONE CAPSULE BY MOUTH EVERY DAY 12/29/2013 04/27/2014 Inactive hydrocodone 10 mg-acetaminophen 325 mg tablet RxNorm: 574374 1-2 Tablet(s) PO QID as needed for severe pain 12/29/2013 01/27/2014 Inactive allopurinol 300 mg tablet RxNorm: 972467 1 Tablet(s) PO QD TAKE ONE TABLET BY MOUTH EVERY DAY 12/29/2013 05/24/2014 Inactive alprazolam 0.5 mg tablet RxNorm: 680540 TAKE ONE TABLET BY MOUTH TWICE A DAY , MUST LAST 30 DAYS 12/29/2013 01/27/2014 Inactive (Response to a n electronic controlled substance refill request - RxReferenceNumber: [id number]) Celebrex 200 mg capsule RxNorm: 637816 1 Capsule(s) PO QD TAKE ONE CAPSULE BY MOUTH EVERY DAY 12/29/2013 12/29/2013 Inactive Bystolic 10 mg tablet RxNorm: 090915 1 Tablet(s) PO QAM TAKE ONE TABLET BY MOUTH EVERY MORNING 12/29/2013 05/24/2014 Inactive Bystolic 10 mg tablet RxNorm: 540811 1 Tablet(s) PO QAM TAKE ONE TABLET BY MOUTH EVERY MORNING 12/29/2013 12/29/2013 Inactive Singulair 10 mg tablet RxNorm: 468963 1 Tablet(s) PO QD TAKE ONE TABLET BY MOUTH EVERY DAY 12/29/2013 05/25/2014 Inactive hydrocodone 10 mg-acetaminophen 325 mg tablet RxNorm: 523753 TAKE ONE TO TWO TABLETS BY MOUTH FOUR TIMES A DAY . MUST LAST 30 DAYS 12/29/20132013 Inactive (Response to an electronic controlled [place] bstance refill request - RxReferenceNumber: [id number]) Trazadone 75mg Tablet RxNorm: 1 Tablet(s) PO QHS as needed 03/23/2014 Inactive Trazadone 75mg Tablet RxNorm: 1 Tablet(s) PO QHS 12/24/20132014 Inactive Soma 350 mg tablet RxNorm: 079772 Tablet(s) PO TAKE ON E TABLET BY MOUTH THREE TIMES A DAY NEEDED FOR MUSCLE SPASMS. THIS MUST LAST 30 DAYS BETWEEN REFILLS. 12/10/2013 12/22/2013 Inactive (Appended: Cont rolled substance eRx refill - RxReferenceNumber: [id number]) diclofenac sodium 75 mg tablet,delayed release RxNorm: 10814 6 1 Tablet(s) PO BID for pain 12/10/2013 02/24/2014 Inactive allopurinol 300 mg tablet RxNorm: 491764 1 Tablet(s) PO QD 11/20/19 14 12/29/2013 Inactive alprazolam 0.5 mg tablet RxNorm: 692297 2 Tablet(s) PO BID 11/13/19 12/29/2013 Inactive prn clonidine 0.1 mg tablet RxNorm: 977192 1 Tablet(s) PO TID 11/12/2013 02/09/2014 Inactive replaces 0.2mg dose Klor-Con M20 mEq tablet,extended release RxNorm: 152025 2 Tablet(s) PO BID to use with lasix 11/12/2013 05/10/2014 Inactive Singulair 10 mg tablet RxNorm: 935265 1 Tablet(s) PO QD 11/12/2013 Inactive hydrocodone 10 mg-acetaminophen 325 mg tablet RxNorm: 919998 1-2 Tablet(s) PO QID as needed for severe pain 11/12/2013 12/28/2013 Inactive Bystolic 10 mg tablet RxNorm: 604404 1 Tablet(s) PO QAM 11/12/2013 Inactive Soma 350 mg tablet RxNorm: 512816 Tablet(s) PO TAKE ON E TABLET BY MOUTH THREE TIMES A DAY NEEDED FOR MUSCLE SPASMS. THIS MUST LAST 30 DAYS BETWEEN REFILLS. 10/13/2013 12/10/2013 Inactive (Appended: Cont rolled substance eRx refill - RxReferenceNumber: [id number]) hydrocodone 10 mg-acetaminophen 325 mg tablet RxNorm: 828102 1-2 Tablet(s) PO QID as needed for severe pain 10/03/2013 11/11/2013 Inactive diclofenac sodium 75 mg tablet,delayed release RxNorm: 77813 8 1 Tablet(s) PO BID for pain 09/11/2013 12/10/2013 Inactive alprazolam 0.5 mg tablet RxNorm: 138002 1 Tablet(s) PO BID May refill on 04/26/13 09/01/2013 10/30/2013 Inactive prn hydrocodone 10 mg-acetaminophen 325 mg tablet RxNorm: 609131 1-2 Tablet(s) PO QID as needed for severe pain 09/01/2013 10/02/2013 Inactive triamterene 75 mg-hydrochlorothiazide 50 mg tablet RxNorm: 3 01470 1 Tablet(s) PO QD 08/04/2013 08/31/2014 Inactive cyclobenzaprine 10 mg tablet RxNorm: 139596 1 Tablet(s) PO TID prn spasm 08/04/2013 08/13/2013 Inactive clonidine 0.1 mg tablet RxNorm: 624206 1 Tablet(s) PO TID 08/04/2013 11/11/2013 Inactive replaces 0.2mg dose cyclobenzaprine 10 mg tablet RxNorm: 081210 1 Tablet(s) PO TID prn spasm 07/23/2013 08/01/2013 Inactive hydrocodone 10 mg-acetaminophen 325 mg tablet RxNorm: 824390 2 1-2 Tablet(s) PO QID as needed for severe pain 06/09/2013 08/07/2013 Inactive Singulair 10 mg tablet RxNorm: 698753 1 Tablet(s) PO QD 05/29/2013 Inactive Klor-Con 8 mEq tablet,extended release RxNorm: 365366 1 Tablet( s) PO BID 05/29/2013 02/26/2014 Inactive allopurinol 300 mg tablet RxNorm: 282611 1 Tablet(s) PO QD 05/29/20 13 11/19/2013 Inactive Bystolic 10 mg tablet RxNorm: 781133 1 Tablet(s) PO QAM take one daily in the morning. 05/29/2013 11/11/2013 Inactive scopolamine 1.5 mg 72 hr Transderm Patch RxNorm: 359122 Application TD Q72H for motion sickness 05/26/2013 07/22/2013 Inactive Soma 350 mg tablet RxNorm: 302370 1 Tablet(s) PO TID as needed for spasm 05/19/2013 10/13/2013 Inactive diclofenac sodium 75 mg tablet,delayed release RxNorm: 94810 8 1 Tablet(s) PO BID for pain 05/14/2013 07/22/2013 Inactive allopurinol 300 mg tablet RxNorm: 216794 1 Tablet(s) PO QD 04/25/20 13 05/28/2013 Inactive alprazolam 0.5 mg tablet RxNorm: 065913 1 Tablet(s) PO BID May refill on 04/26/13 04/25/2013 06/23/2013 Inactive prn Celebrex 200 mg capsule RxNorm: 197632 1 Capsule(s) PO QD 04/16/2013 12/29/2013 Inactive alprazolam 0.5 mg tablet RxNorm: 953453 1 Tablet(s) PO BID May refill on 04/26/13 04/16/2013 04/24/2013 Inactive prn Soma 350 mg tablet RxNorm: 602250 1 Tablet(s) PO TID as needed for spasm 04/16/2013 No Stop Date Active Lasix 40 mg tablet RxNorm: 160027 1 Tablet(s) PO QAM s hould take potassium supplementation with this medication 04/16/2013 06/14/2013 Inactive clonidine 0.1 mg tablet RxNorm: 017313 1 Tablet(s) PO TID 04/16/2013 08/03/2013 Inactive replaces 0.2mg dose prednisone 20 mg tablet RxNorm: 013193 1 Tablet(s) PO BID 04/16/2013 04/20/2013 Inactive diclofenac sodium 75 mg tablet,delayed release RxNorm: 25708 8 1 Tablet(s) PO BID for pain 04/14/2013 05/13/2013 Inactive hydrocodone 10 mg-acetaminophen 325 mg tablet RxNorm: 754425 2 1-2 Tablet(s) PO QID as needed for severe pain 04/14/2013 No Stop Date Active Lasix 40 mg tablet RxNorm: 770038 1 Tablet(s) PO QAM s hould take potassium supplementation with this medication 03/31/2013 04/15/2013 Inactive Celebrex 200 mg capsule RxNorm: 544373 1 Capsule(s) PO QD 03/31/2013 04/15/2013 Inactive alprazolam 0.5 mg tablet RxNorm: 391557 1 Tablet(s) PO BID 03/28/20 13 04/15/2013 Inactive prn hydrocodone 10 mg-acetaminophen 325 mg tablet RxNorm: 770693 2 1-2 Tablet(s) PO QID as needed for severe pain 03/10/2013 No Stop Date Active metformin ER 500 mg 24 hr tablet,extended release RxNorm: 86 1018 1 Tablet(s) PO QD 03/06/2013 07/22/2013 Inactive clindamycin 300 mg capsule RxNorm: 259041 2 Capsule(s) PO TID 03/0503/14/2013 Inactive Zaroxolyn 2.5 mg tablet RxNorm: 937492 1 Tablet(s) PO QAM 03/05/2013 05/19/2015 Inactive amlodipine 10 mg tablet RxNorm: 262648 1 Tablet(s) PO QD 03/03/2013 0 05/25/2013 Inactive Norvasc 10 mg tablet RxNorm: 740347 1 Tablet(s) PO QD 02/28/201307/11 Inactive Celebrex 200 mg capsule RxNorm: 031805 1 Capsule(s) PO QD 02/28/2013 03/30/2013 Inactive diclofenac sodium 75 mg tablet,delayed release RxNorm: 05530 8 1 Tablet(s) PO BID for pain 02/14/2013 03/15/2013 Inactive Soma 350 mg tablet RxNorm: 817672 1 Tablet(s) PO TID as needed for spasm 02/14/2013 No Stop Date Active hydrocodone 10 mg-acetaminophen 325 mg tablet RxNorm: 032575 2 1-2 Tablet(s) PO QID as needed for severe pain 02/14/2013 No Stop Date Active Norvasc 10 mg tablet RxNorm: 212467 1 Tablet(s) PO QD 02/10/201302/09 Inactive Celebrex 200 mg capsule RxNorm: 931959 1 Capsule(s) PO QD 01/27/2013 01/26/2013 Inactive Premarin 1.25 mg tablet RxNorm: 708737 1-2 Tablet(s) PO QD 01/28/20 13 06/25/2013 Inactive alprazolam 0.5 mg tablet RxNorm: 696711 1 Tablet(s) PO BID 01/28/20 13 02/25/2013 Inactive prn amlodipine 5 mg tablet RxNorm: 310548 1 Tablet(s) PO QD 01/27/2013 Inactive Celebrex 200 mg capsule RxNorm: 585815 1 Capsule(s) PO QD 01/27/2013 02/27/2013 Inactive gabapentin 600 mg tablet RxNorm: 136728 1 Tablet(s) PO QHS 01/16/20 13 07/22/2013 Inactive Soma 350 mg tablet RxNorm: 063487 1 Tablet(s) PO TID as needed for spasm 01/15/2013 No Stop Date Active hydrocodone 10 mg-acetaminophen 325 mg tablet RxNorm: 954235 2 1-2 Tablet(s) PO QID as needed for severe pain 01/15/2013 No Stop Date Active Soma 350 mg tablet RxNorm: 443246 1 Tablet(s) PO TID as needed for spasm 01/13/2013 No Stop Date Active alprazolam 0.5 mg tablet RxNorm: 396262 1 Tablet(s) PO BID 12/31/19 13 01/26/2013 Inactive prn diclofenac sodium 75 mg tablet,delayed release RxNorm: 84641 8 1 Tablet(s) PO BID for pain 12/09/2012 01/07/2013 Inactive gabapentin 600 mg tablet RxNorm: 956960 1 Tablet(s) PO QHS 12/10/19 13 01/07/2013 Inactive hydrocodone 10 mg-acetaminophen 325 mg tablet RxNorm: 130008 2 1-2 Tablet(s) PO QID as needed for severe pain 12/02/2012 No Stop Date Active Levaquin 750 mg tablet RxNorm: 798447 1 Tablet(s) PO QD 11/21/2012 Inactive Singulair 10 mg tablet RxNorm: 112469 1 Tablet(s) PO QD 11/11/2012 Inactive clonidine 0.2 mg tablet RxNorm: 233140 1 Tablet(s) PO TID 11/11/2012 04/15/2013 Inactive alprazolam 0.5 mg tablet RxNorm: 403260 1 Tablet(s) PO BID 11/12/19 13 12/10/2012 Inactive prn Klor-Con 8 mEq tablet,extended release RxNorm: 206127 1 Tablet( s) PO BID 11/11/2012 03/04/2013 Inactive hydrocodone 10 mg-acetaminophen 325 mg tablet RxNorm: 180494 2 1-2 Tablet(s) PO QID as needed for severe pain 11/06/2012 No Stop Date Active alprazolam 0.5 mg tablet RxNorm: 313888 1 Tablet(s) PO BID 10/15/19 13 11/10/2012 Inactive prn hydrocodone-acetaminophen 10 mg-325 mg tablet RxNorm: 642767 2 1-2 Tablet(s) PO QID as needed for severe pain 10/10/2012 10/09/2012 Inactive allopurinol 300 mg tablet RxNorm: 880873 1 Tablet(s) PO QD 09/20/19 13 12/18/2012 Inactive alprazolam 0.5 mg tablet RxNorm: 313780 1 Tablet(s) PO BID 09/17/19 13 10/14/2012 Inactive prn hydrocodone-acetaminophen 10 mg-325 mg tablet RxNorm: 764429 2 1-2 Tablet(s) PO QID as needed for severe pain 08/22/2012 08/21/2012 Inactive Norvasc 10 mg tablet RxNorm: 404979 1 Tablet(s) PO QD 08/12/201201/10 Inactive Premarin 1.25 mg tablet RxNorm: 309936 1-2 Tablet(s) PO QD 07/30/20 12 12/26/2012 Inactive alprazolam 0.5 mg tablet RxNorm: 213677 1 Tablet(s) PO BID 07/29/20 12 08/27/2012 Inactive prn Klor-Con 8 mEq tablet,extended release RxNorm: 739779 1 Tablet( s) PO BID 07/29/2012 11/10/2012 Inactive hydrocodone-acetaminophen 10 mg-325 mg tablet RxNorm: 081595 2 1-2 Tablet(s) PO QID as needed for severe pain 07/29/2012 No Stop Date Active Premarin 1.25 mg tablet RxNorm: 186990 1-2 Tablet(s) PO QD 07/29/20 12 07/29/2012 Inactive clonidine 0.2 mg tablet RxNorm: 128904 1 Tablet(s) PO TID 07/29/2012 10/28/2012 Inactive ketorolac 10 mg tablet RxNorm: 206370 1 Tablet(s) PO QID prn he adache 07/18/2012 No Stop Date Active hydrocodone-acetaminophen 10 mg-325 mg tablet RxNorm: 914247 2 1-2 Tablet(s) PO QID as needed for severe pain 07/03/2012 No Stop Date Active amlodipine 5 mg tablet RxNorm: 358668 1 Tablet(s) PO QD 07/02/2012 Inactive allopurinol 300 mg tablet RxNorm: 094964 1 Tablet(s) PO QD 07/02/20 12 09/19/2012 Inactive Celebrex 200 mg capsule RxNorm: 654507 1 Capsule(s) PO QD for j oint pain 06/26/2012 10/23/2012 Inactive diclofenac sodium 75 mg tablet,delayed release RxNorm: 86713 8 1 Tablet(s) PO BID for pain 06/19/2012 09/16/2012 Inactive hydrocodone-acetaminophen 10 mg-325 mg tablet RxNorm: 846581 2 1-2 Tablet(s) PO QID as needed for severe pain 06/10/2012 No Stop Date Active alprazolam 0.5 mg tablet RxNorm: 891873 1 Tablet(s) PO BID 06/03/20 12 07/02/2012 Inactive prn ketorolac 10 mg tablet RxNorm: 044437 1 Tablet(s) PO Q8H 05/27/2012 0 01/21/2019 Inactive as needed for headache hydrocodone-acetaminophen 10 mg-325 mg tablet RxNorm: 739546 2 1-2 Tablet(s) PO QID as needed for severe pain 05/15/2012 No Stop Date Active allopurinol 300 mg tablet RxNorm: 897547 1 Tablet(s) PO QD 05/14/20 12 06/12/2012 Inactive allopurinol 300 mg tablet RxNorm: 991114 1 Tablet(s) PO QD 05/14/20 12 05/13/2012 Inactive amlodipine 5 mg tablet RxNorm: 315148 1 Tablet(s) PO QD 05/01/2012 Inactive amlodipine 5 mg Tab RxNorm: 484776 1 Tablet(s) PO QD 05/01/201204/30 Inactive Celebrex 200 mg capsule RxNorm: 007101 1 Capsule(s) PO QD for j oint pain 05/01/2012 06/25/2012 Inactive Singulair 10 mg tablet RxNorm: 313696 1 Tablet(s) PO QD 05/01/2012 Inactive alprazolam 0.5 mg tablet RxNorm: 924422 1 Tablet(s) PO BID 05/01/20 12 05/30/2012 Inactive prn Celebrex 200 mg Cap RxNorm: 362433 1 Capsule(s) PO QD for joint radu n 05/01/2012 04/30/2012 Inactive hydrocodone-acetaminophen 10 mg-325 mg tablet RxNorm: 664480 2 1-2 Tablet(s) PO QID as needed for severe pain 04/19/2012 No Stop Date Active Lasix 40 mg tablet RxNorm: 334868 1 Tablet(s) PO QAM s rajwinderuld take potassium supplementation with this medication 04/05/2012 06/03/2012 Inactive alprazolam 0.5 mg Tab RxNorm: 347743 1 Tablet(s) PO BID 04/05/2012 Inactive prn hydrocodone-acetaminophen 10 mg-325 mg Tab RxNorm: 1586263 1-2 Tablet(s) PO QID as needed for severe pain 03/25/2012 03/24/2012 Inactive clonidine 0.2 mg Tab RxNorm: 566701 1 Tablet(s) PO TID 03/08/2012 Inactive alprazolam 0.5 mg Tab RxNorm: 164867 1 Tablet(s) PO BID 03/08/2012 Inactive prn Soma 350 mg tablet RxNorm: 828650 1 Tablet(s) PO TID for spasm 02/0903/18/2012 Inactive clonidine 0.2 mg tablet RxNorm: 793847 1 Tablet(s) PO TID 03/08/2012 07/28/2012 Inactive Celebrex 200 mg Cap RxNorm: 396855 1 Capsule(s) PO QD for joint radu n 03/01/2012 04/29/2012 Inactive amlodipine 5 mg Tab RxNorm: 406597 1 Tablet(s) PO QD 02/26/201202/24 Inactive amlodipine 5 mg Tab RxNorm: 831163 1 Tablet(s) PO QD 02/26/201204/25 Inactive Bactroban 2 % Ointment RxNorm: 961353 Application TOP QID to sores 02/23/2012 No Stop Date Active amlodipine 2.5 mg tablet RxNorm: 731997 1 Tablet(s) PO QHS 02/20/2002/25/2012 Inactive doxycycline hyclate 100 mg Cap RxNorm: 9166470 1 Capsule(s) PO BID 02/20/2012 02/29/2012 Inactive hydrocodone-acetaminophen 10 mg-325 mg Tab RxNorm: 8901954 1-2 T ablet(s) PO QID 02/08/2012 No Stop Date Active alprazolam 0.5 mg Tab RxNorm: 465365 1 Tablet(s) PO BID 02/08/2012 Inactive prn Singulair 10 mg Tab RxNorm: 255600 1 Tablet(s) PO QD 02/08/201204/30 Inactive Soma 350 mg Tab RxNorm: 914651 1 Tablet(s) PO TID for spasm 012 03/07/2012 Inactive Soma 350 mg Tab RxNorm: 313450 1 Tablet(s) PO TID for spasm 012 02/05/2012 Inactive diclofenac sodium 75 mg tablet,delayed release RxNorm: 39291 8 1 Tablet(s) PO BID for pain 02/01/2012 03/18/2012 Inactive Celebrex 200 mg Cap RxNorm: 316393 1 Capsule(s) PO QD for joint radu n 01/30/2012 02/28/2012 Inactive Lasix 40 mg Tab RxNorm: 020320 1 Tablet(s) PO QAM 01/24/2012 03/18/20 12 Inactive potassium chloride ER 20 mEq tablet,extended release(part/cr yst) RxNorm: 403104 2 Tablet(s) PO BID 01/24/2012 02/22/2012 Inactive alprazolam 0.5 mg Tab RxNorm: 048717 1 Tablet(s) PO BID 01/11/2012 Inactive prn hydrocodone-acetaminophen 10 mg-325 mg Tab RxNorm: 2174569 1-2 T ablet(s) PO QID 01/11/2012 No Stop Date Active Ambien 10 mg Tab RxNorm: 012663 1 Tablet(s) PO QHS 01/11/2012 012 Inactive Klor-Con 8 mEq Tab RxNorm: 504036 1 Tablet(s) PO BID 01/11/201201/22 Inactive diclofenac sodium 75 mg Tab, Delayed Release RxNorm: 444996 1 Tablet(s) PO BID for pain 01/10/2012 01/31/2012 Inactive Ambien 10 mg Tab RxNorm: 327917 1 Tablet(s) PO QHS 12/11/2011 012 Inactive alprazolam 0.5 mg Tab RxNorm: 587797 1 Tablet(s) PO BID 12/11/2011 Inactive prn hydrocodone 10 mg-acetaminophen 325 mg tablet RxNorm: 286969 1-2 Tablet(s) PO TID 11/28/2011 No Stop Date Active as needed for pa in - Previous quantity #240, will start dosing for #180 in April 2011 per Doctor Td. Ambien 10 mg Tab RxNorm: 179673 1 Tablet(s) PO QHS 11/09/2011 012 Inactive alprazolam 0.5 mg Tab RxNorm: 313962 1 Tablet(s) PO BID 11/09/2011 Inactive prn hydrocodone-acetaminophen 10 mg-325 mg Tab RxNorm: 3419558 1-2 T ablet(s) PO TID 11/06/2011 No Stop Date Active as needed for pain - Previous quantity #240, will start dosing for #180 in April 2011 per Doctor Td. Singulair 10 mg Tab RxNorm: 780774 1 Tablet(s) PO QD 10/13/201110/12 Inactive Singulair 10 mg Tab RxNorm: 043378 1 Tablet(s) PO QD 10/13/201102/06 Inactive hydrocodone-acetaminophen 10 mg-325 mg Tab RxNorm: 1196312 1-2 T ablet(s) PO TID 10/10/2011 10/09/2011 Inactive as needed for pain - Previous quantity #240, will start dosing for #180 in April 2011 per Doctor Td. hydrocodone-acetaminophen 10 mg-325 mg Tab RxNorm: 3562966 1-2 T ablet(s) PO TID 10/09/2011 No Stop Date Active as needed for pain - Previous quantity #240, will start dosing for #180 in April 2011 per Doctor Td. Klor-Con 8 mEq Tab RxNorm: 682961 1 Tablet(s) PO BID 10/02/201101/09 Inactive triamterene 75 mg-hydrochlorothiazide 50 mg tablet RxNorm: 3 45045 1 Tablet(s) PO QD 09/14/2011 03/06/2013 Inactive Ambien 10 mg Tab RxNorm: 962516 1 Tablet(s) PO QHS 09/14/2011 012 Inactive hydrocodone-acetaminophen 10 mg-325 mg Tab RxNorm: 8426267 1-2 T ablet(s) PO TID 09/14/2011 No Stop Date Active as needed for pain - Previous quantity #240, will start dosing for #180 in April 2011 per Doctor Td. alprazolam 0.5 mg Tab RxNorm: 851979 1 Tablet(s) PO BID 09/14/2011 Inactive prn Zithromax 500 mg Tab RxNorm: 7890168 1 Tablet(s) PO QD 09/13/201106/2012 Inactive prednisone 20 mg Tab RxNorm: 108800 1 Tablet(s) PO BID 08/31/2011 Inactive Ambien 10 mg Tab RxNorm: 298697 1 Tablet(s) PO QHS 08/17/2011 011 Inactive hydrocodone-acetaminophen 10 mg-325 mg Tab RxNorm: 0675577 1-2 T ablet(s) PO TID 08/17/2011 No Stop Date Active as needed for pain - Previous quantity #240, will start dosing for #180 in April 2011 per Doctor Td. clonidine 0.2 mg Tab RxNorm: 113514 1 Tablet(s) PO TID 08/17/201112/2011 Inactive Ambien 10 mg Tab RxNorm: 545037 1 Tablet(s) PO QHS 08/17/2011 019 Inactive alprazolam 0.5 mg Tab RxNorm: 760282 1 Tablet(s) PO BID 08/17/2011 Inactive prn hydrocodone-acetaminophen 10 mg-325 mg Tab RxNorm: 9472453 1-2 T ablet(s) PO TID 08/17/2011 08/16/2011 Inactive as needed for pain - Previous quantity #240, will start dosing for #180 in April 2011 per Doctor Td. Singulair 10 mg Tab RxNorm: 691081 1 Tablet(s) PO QD 08/17/201108/16 Inactive Klor-Con 8 mEq Tab RxNorm: 947194 1 Tablet(s) PO QD 08/17/20112011 Inactive alprazolam 0.5 mg Tab RxNorm: 733959 1 Tablet(s) PO BID 07/20/2011 Inactive prn Ambien 10 mg Tab RxNorm: 062857 1 Tablet(s) PO QHS 07/20/2011 012 Inactive Singulair 10 mg Tab RxNorm: 448783 1 Tablet(s) PO QD 07/20/201107/19 Inactive Premarin 1.25 mg tablet RxNorm: 961803 2 Tablet(s) PO QD 07/20/2011 0 01/21/2019 Inactive Premarin 1.25 mg tablet RxNorm: 677849 1-2 Tablet(s) PO QD 07/20/20 11 12/16/2011 Inactive Premarin 1.25 mg Tab RxNorm: 968705 1-2 Tablet(s) PO QD 07/06/2011 Inactive alprazolam 0.5 mg Tab RxNorm: 074272 1 Tablet(s) PO BID 06/22/2011 Inactive prn alprazolam 0.5 mg Tab RxNorm: 545160 1 Tablet(s) PO BID 06/22/2011 Inactive prn Premarin 1.25 mg Tab RxNorm: 838394 1 Tablet(s) PO QD m ay do 90 day fill if desired 06/22/2011 07/05/2011 Inactive hydrocodone-acetaminophen 10 mg-325 mg Tab RxNorm: 5327115 1-2 T ablet(s) PO TID 06/22/2011 No Stop Date Active as needed for pain - Previous quantity #240, will start dosing for #180 in April 2011 per Doctor Td. clonidine 0.2 mg Tab RxNorm: 552002 1 Tablet(s) PO TID 05/25/201103/2011 Inactive triamterene-hydrochlorothiazide 75 mg-50 mg Tab RxNorm: 3108 18 1 Tablet(s) PO QD 05/25/2011 09/13/2011 Inactive alprazolam 0.5 mg Tab RxNorm: 115045 1 Tablet(s) PO BID 05/25/2011 Inactive prn hydrocodone-acetaminophen 10 mg-325 mg Tab RxNorm: 6082481 1-2 T ablet(s) PO TID 05/25/2011 No Stop Date Active as needed for pain - Previous quantity #240, will start dosing for #180 in April 2011 per Doctor Td. Robaxin-750 750 mg Tab RxNorm: 448952 2 Tablet(s) PO QHS 05/22/2011 1 Inactive prn spasm hydrocodone-acetaminophen 10 mg-325 mg Tab RxNorm: 4014380 1-2 T ablet(s) PO TID 04/26/2011 No Stop Date Active as needed for pain - Previous quantity #240, will start dosing for #180 in April 2011 per Doctor Td. alprazolam 0.5 mg Tab RxNorm: 875086 1 Tablet(s) PO BID 04/25/2011 Inactive prn Klor-Con 8 mEq Tab RxNorm: 184471 1 Tablet(s) PO QD 03/30/20112010 Inactive Klor-Con 8 mEq Tab RxNorm: 447472 1 Tablet(s) PO QD 03/29/20112010 Inactive hydrocodone-acetaminophen 10 mg-325 mg Tab RxNorm: 9950841 1-2 T ablet(s) PO TID 03/20/2011 04/25/2011 Inactive as needed for pain - Previous quantity #240, will start dosing for #180 in April 2011 per Doctor Td. alprazolam 0.5 mg Tab RxNorm: 316433 1 Tablet(s) PO BID prn 011 03/30/2011 Inactive Ambien 10 mg Tab RxNorm: 576571 1 Tablet(s) PO QHS 03/01/2011 011 Inactive cyclobenzaprine 10 mg Tab RxNorm: 579718 1 Tablet(s) PO TID 011 03/18/2012 Inactive cyclobenzaprine 10 mg Tab RxNorm: 498678 1 Tablet(s) PO TID 011 01/08/2011 Inactive cyclobenzaprine 10 mg Tab RxNorm: 232250 1 Tablet(s) PO TID 011 12/20/2010 Inactive terbinafine 250 mg Tab RxNorm: 113511 1 Tablet(s) PO QD 12/12/2010 Inactive triamterene-hydrochlorothiazide 75 mg-50 mg Tab RxNorm: 3108 18 1 Tablet(s) PO QD 12/07/2010 06/04/2011 Inactive Klor-Con 8 8 mEq Tab RxNorm: 281367 1 Tablet(s) PO QD 12/07/201001/08 Inactive Premarin 1.25 mg Tab RxNorm: 994016 2 Tablet(s) PO QD 12/07/201001/08 Inactive clonidine 0.2 mg Tab RxNorm: 721721 1 Tablet(s) PO TID 12/07/2010 Inactive hydrocodone-acetaminophen 7.5 mg-650 mg Tab RxNorm: 334461 1 Ta blet(s) PO Q4H 12/05/2010 01/21/2019 Inactive hydrocodone-acetaminophen 7.5 mg-650 mg Tab RxNorm: 720823 1 Ta blet(s) PO Q4H 10/26/2010 11/14/2010 Inactive hydrocodone-acetaminophen 7.5 mg-650 mg Tab RxNorm: 124296 1 Ta blet(s) PO Q4H 10/13/2010 10/25/2010 Inactive hydrocodone-acetaminophen 7.5 mg-650 mg Tab RxNorm: 517341 1 Ta blet(s) PO Q4H 09/15/2010 09/12/2010 Inactive alprazolam 0.5 mg Tab RxNorm: 920267 1 Tablet(s) PO BID prn 011 09/12/2010 Inactive terbinafine 250 mg Tab RxNorm: 827971 1 Tablet(s) PO QD 09/05/2010 Inactive hydrocodone-acetaminophen 7.5 mg-650 mg Tab RxNorm: 184677 1 Ta blet(s) PO Q4H 08/29/2010 09/17/2010 Inactive alprazolam 0.5 mg Tab RxNorm: 857817 1 Tablet(s) PO BID prn 010 09/27/2010 Inactive alprazolam 0.5 mg Tab RxNorm: 192286 1 Tablet(s) PO BID prn 010 09/06/2010 Inactive Klor-Con 8 mEq Tab RxNorm: 659703 1 Tablet(s) PO QD 08/08/20102010 Inactive hydrocodone-acetaminophen 7.5 mg-650 mg Tab RxNorm: 564600 1 Ta blet(s) PO Q4H 08/08/2010 08/27/2010 Inactive Ambien 10 mg Tab RxNorm: 208350 1 Tablet(s) PO QHS 08/08/2010 Inactive clonidine 0.2 mg Tab RxNorm: 716649 1 Tablet(s) PO TID 08/08/2010 Inactive Premarin 1.25 mg Tab RxNorm: 329866 2 Tablet(s) PO QD 08/08/201009/12 Inactive Ambien 10 mg Tab RxNorm: 366079 1 Tablet(s) PO QHS 07/18/2010 Inactive alprazolam 0.5 mg Tab RxNorm: 836886 1 Tablet(s) PO BID prn 010 08/07/2010 Inactive hydrocodone-acetaminophen 7.5 mg-650 mg Tab RxNorm: 017636 1 Ta blet(s) PO Q4H 07/12/2010 07/31/2010 Inactive clonidine 0.2 mg Tab RxNorm: 793181 1 Tablet(s) PO TID 06/20/2010 Inactive terbinafine 250 mg Tab RxNorm: 480398 1 Tablet(s) PO QD 05/24/2010 Inactive Clonidine 0.2 mg Tab RxNorm: 538373 1 Tablet(s) PO TID 05/24/201006/2010 Inactive Ambien 10 mg Tab RxNorm: 806707 1 Tablet(s) PO QHS 05/24/2010 Inactive alprazolam 0.5 mg Tab RxNorm: 649902 1 Tablet(s) PO BID 05/24/2010 Inactive Klor-Con 8 mEq Tab RxNorm: 334771 1 Tablet(s) PO QD 05/24/20102009 Inactive alprazolam 0.5 mg Tab RxNorm: 229491 2 Tablet(s) PO QD prn 05/24/2007/17/2010 Inactive triamterene-hydrochlorothiazide 75 mg-50 mg Tab RxNorm: 3108 18 1 Tablet(s) PO QD 05/24/2010 11/19/2010 Inactive Ambien 10 mg Tab RxNorm: 587885 1 Tablet(s) PO QHS 05/23/2010 010 Inactive Alprazolam 0.5 mg Tab RxNorm: 863529 2 Tablet(s) PO QD prn 05/23/20 10 05/23/2010 Inactive Premarin 1.25 mg Tab RxNorm: 384763 2 Tablet(s) PO QD 05/19/201007/12 Inactive Hydrocodone-Acetaminophen 7.5 mg-650 mg Tab RxNorm: 641459 1 Ta blet(s) PO Q4H 05/19/2010 03/20/2011 Inactive Prednisone 20 mg Tab RxNorm: 858701 1 Tablet(s) PO BID 05/17/2010 Inactive Prednisone 20 mg Tab RxNorm: 865045 1 Tablet(s) PO BID 05/06/201001/2010 Inactive Premarin 1.25 mg Tab RxNorm: 566709 Tablet(s) PO 2 M-W-F, and 1 Fs-Gh-Sor-Sun 05/05/2010 08/02/2010 Inactive Premarin 1.25 mg Tab RxNorm: 751925 Tablet(s) PO 2 M-W-F, and 1 Ns-Lm-Hlh-Sun 05/04/2010 05/04/2010 Inactive Premarin 1.25 mg Tab RxNorm: 742355 Tablet(s) PO 2 M-W-F, and 1 Yj-Lq-Srv-Sun 05/04/2010 05/03/2010 Inactive Prednisone 20 mg Tab RxNorm: 089562 1 Tablet(s) PO BID 04/27/2010 Inactive Alprazolam 0.5 mg Tab RxNorm: 410037 2 Tablet(s) PO QD prn 04/26/20 10 05/22/2010 Inactive Clindamycin 300 mg Cap RxNorm: 860022 2 Capsule(s) PO TID 04/05/2010 04/18/2010 Inactive Terbinafine 250 mg Tab RxNorm: 766362 1 Tablet(s) PO QD 04/04/2010 Inactive Hydrocodone-Acetaminophen 7.5 mg-650 mg Tab RxNorm: 402852 1 Ta blet(s) PO Q4H 03/30/2010 04/18/2010 Inactive Avelox 400 mg Tab RxNorm: 907230 1 Tablet(s) PO QD 03/09/2010 010 Inactive Hydrocodone-Acetaminophen 7.5 mg-650 mg Tab RxNorm: 593415 1 Ta blet(s) PO Q4H 03/08/2010 03/27/2010 Inactive Alprazolam 0.5 mg Tab RxNorm: 655268 2 Tablet(s) PO QD prn 03/08/20 10 04/25/2010 Inactive Klor-Con 8 mEq Tab RxNorm: 367652 1 Tablet(s) PO QD when takes lasi x 03/07/2010 09/29/2019 Inactive Premarin 1.25 mg Tab RxNorm: 265754 1 Tablet(s) PO QD 03/03/201003/11 Inactive Alprazolam 0.5 mg Tab RxNorm: 456837 1 Tablet(s) PO BID PRN 010 No Stop Date Active triamterene-hydrochlorothiazide 75 mg-50 mg Tab RxNorm: 3108 18 1 Tablet(s) PO QD 02/09/2010 02/03/2011 Inactive Hydrocodone-Acetaminophen 10 mg-750 mg Tab RxNorm: 437311 1 Tablet(s) PO Q4H PRN 02/09/2010 03/20/2011 Inactive Clonidine 0.2 mg Tab RxNorm: 483939 1 Tablet(s) PO TID 01/13/201009/2009 Inactive Alprazolam 0.5 mg Tab RxNorm: 843532 1 Tablet(s) PO BID PRN 010 01/12/2010 Inactive Hydrocodone-Acetaminophen 10 mg-750 mg Tab RxNorm: 958984 1 Tablet(s) PO Q4H PRN 01/13/2010 01/12/2010 Inactive ANGELIQ 1 mg-0.5 mg Tab RxNorm: 6315193 1 Tablet(s) PO QD 12/27/2009 01/23/2010 Inactive Lasix 40 mg Tab RxNorm: 268135 1 Tablet(s) PO QAM 12/14/2009 06/11/20 10 Inactive Vitamin B12 1000mcg Tablet RxNorm: 1 Tablet(s) PO QD No Start Date Active cyclobenzaprine 10 mg tablet RxNorm: 039948 1 Tablet(s) PO TID as needed DO NOT USE WITH BACLOFEN No Start Date Active Vitamin D 5,000 unit Tab RxNorm: 1 Tablet(s) PO QD No Start Date Active vitamin E (dl, acetate) 400 unit Cap RxNorm: 425963 1 Capsule(s ) PO QD No Start Date Active Benadryl 25 mg Cap RxNorm: 3706398 Capsule(s) PO PRN No Start Date Inactive amitriptyline 100 mg tablet RxNorm: 321075 1 Tablet(s) PO QHS No St art Date 11/27/2016 Inactive Zithromax Z-Dustin 250 mg tablet RxNorm: 389229 Tablet(s) PO as di rected No Start Date 07/22/2013 Inactive Klor-Con 8 mEq tablet,extended release RxNorm: 971352 1 Tablet( s) PO BID No Start Date 07/28/2012 Inactive scopolamine 1.5 mg 72 hr Transderm Patch RxNorm: 338507 Application TD Q72H for motion sickness No Start Date 05/25/2013 Inactive Klonopin 1 mg tablet RxNorm: 454684 1-2 Tablet(s) PO QHS as nee ded for sleep No Start Date 06/20/2015 Inactive Klor-Con M20 mEq tablet,extended release RxNorm: 077773 2 Tablet(s) PO BID to use with lasix No Start Date 11/11/2013 Inactive Bystolic 5 mg tablet RxNorm: 864725 1 Tablet(s) PO QD No Start Date 1 Inactive Bystolic 10 mg tablet RxNorm: 329701 1 Tablet(s) PO BID No Start Da te 07/06/2015 Inactive Premarin 1.25 mg Tab RxNorm: 748185 Tablet(s) PO 2 -W-, and 1 Au-Mk-Sws-Sun No Start Date 05/03/2010 Inactive baclofen 20 mg tablet RxNorm: 002213 1 Tablet(s) PO TID as needed for muscle spasm No Start Date 07/22/2015 Inactive hydrocodone-acetaminophen 7.5 mg-650 mg Tab RxNorm: 933656 1 Tablet(s) PO Q4H as needed for pain No Start Date 03/20/2011 Inactive albuterol sulfate 1.25 mg/3 mL Neb Solution RxNorm: 129500 1 Unit Dose INH Q4H 2boxes No Start Date 09/06/2015 Inactive Butrans 20 mcg/hour Transderm Patch RxNorm: 611226 1 TD WEEKLY apply to skin weekly after removing previous. No Start Date 07/22/2013 Inactive Medrol (Dustin) 4 mg tablets in a dose pack RxNorm: 977343 Tablet(s) PO As Directed No Start Date 07/30/2016 Inactive hydrocodone-acetaminophen 10 mg-325 mg Tab RxNorm: 8560345 1-2 Tablet(s) PO TID as needed for pain No Start Date 03/19/2011 Inactive Klonopin 1 mg tablet RxNorm: 527275 1 Tablet(s) PO QHS No Start Date 02/28/2016 Inactive honey topical RxNorm: topical No Start Date 06/16/2018 Inactive Clonidine 0.2 mg Tab RxNorm: 407022 1 Tablet(s) PO TID No Start Date 01/12/2010 Inactive ketorolac 10 mg tablet RxNorm: 484690 1 Tablet(s) PO Q8H No Start D ate 03/18/2012 Inactive as needed for headache Singulair 10 mg Tab RxNorm: 864816 1 Tablet(s) PO QD No Start Date Inactive Premarin 1.25 mg Tab RxNorm: 326766 1 Tablet(s) PO QD No Start Date 1 Inactive Flonase 50 mcg/Actuation Nasal Crapo RxNorm: 5506430 1 Crapo CECELIA AL BID No Start Date 03/18/2012 Inactive Terbinafine 250 mg Tab RxNorm: 108288 1 Tablet(s) PO QD No Start Da te 04/03/2010 Inactive Fexofenadine 180 mg Tab RxNorm: 2523891 1 Tablet(s) PO QD No Start Date 09/06/2015 Inactive baclofen 20 mg tablet RxNorm: 537296 1 Tablet(s) PO TID as needed N o Start Date 05/25/2014 Inactive Diovan 160 mg Tab RxNorm: 025207 1 Tablet(s) PO QD No Start Date 09/12 Inactive mupirocin 2 % topical ointment RxNorm: 816738 1 Application TOP QID No Start Date 04/25/2016 Inactive ZOFRAN ODT 4 mg Tab, Rapid Dissolve RxNorm: 801986 1 Tablet(s) PO Q4H No Start Date 03/18/2012 Inactive as needed for nausea and vomiting Alprazolam 0.5 mg Tab RxNorm: 267587 1 Tablet(s) PO BID PRN No Star t Date 01/12/2010 Inactive cyclobenzaprine 10 mg tablet RxNorm: 166590 1 Tablet(s) PO TID as needed for muscle spasm No Start Date 10/08/2017 Inactive Albuterol 0.083% Aerosol Solution RxNorm: 1 Appl ication INH Q4H Use one ampule every 4 hrs with nebulizer as needed for shortness of breath. No Start Date 10/09/2010 Inactive lorazepam 1 mg tablet RxNorm: 872417 1 1/2 Tablet(s) PO QHS No Star t Date 02/02/2016 Inactive Melatonin 3 mg Tab RxNorm: 004682 Tablet(s) PO PRN No Start Date 07/11 Inactive Medrol (Dustin) 4 mg Tabs in a Dose Pack RxNorm: 476676 Tablet(s) PO N o Start Date 11/28/2010 Inactive lorazepam 1 mg tablet RxNorm: 220493 1 Tablet(s) PO QHS as need ed for sleep No Start Date 01/30/2016 Inactive hydrocodone-acetaminophen 10 mg-325 mg Tab RxNorm: 7148689 1-2 Tablet(s) PO QID as needed for severe pain No Start Date 03/24/2012 Inactive celecoxib 200 mg capsule RxNorm: 999897 1 Capsule(s) PO BID No Star t Date 06/26/2019 Inactive amlodipine 5 mg-benazepril 20 mg capsule RxNorm: 281281 1 Capsu le(s) PO QD No Start Date 04/10/2017 Inactive Bystolic 20 mg tablet RxNorm: 552590 1/2 Tablet(s) PO QAM No Start Date 01/23/2016 Inactive Bystolic 20 mg tablet RxNorm: 393246 1 Tablet(s) PO QAM No Start Da te 04/25/2016 Inactive Ambien 10 mg Tab RxNorm: 103870 1 Tablet(s) PO QHS No Start Date 05/11 Inactive Klor-Con 8 mEq Tab RxNorm: 604486 1 Tablet(s) PO QD when takes lasix No Start Date 03/06/2010 Inactive aspirin 81 mg tablet RxNorm: 034343 1 Tablet(s) PO QD No Start Date 0 01/29/2018 Inactive hydrocodone-acetaminophen 10 mg-325 mg Tab RxNorm: 4711332 1-2 T ablet(s) PO QID No Start Date 01/10/2012 Inactive Bystolic 10 mg tablet RxNorm: 216115 1 Tablet(s) PO QAM take one daily in the morning. No Start Date 05/28/2013 Inactive nystatin 100,000 unit/mL Oral Susp RxNorm: 865457 5 Milliliter( s) PO QID No Start Date 03/18/2012 Inactive swish and spit scopolamine 1.5 mg 72 hr Transderm Patch RxNorm: 446733 1 Unit Dose TD Q72H for motion sickness No Start Date 12/23/2013 Inactive Hydrocodone-Acetaminophen 10 mg-750 mg Tab RxNorm: 486235 1 Tablet(s) PO Q4H PRN No Start Date 01/12/2010 Inactive Soma 350 mg tablet RxNorm: 038380 1 Tablet(s) PO TID as needed for spasm No Start Date 01/12/2013 Inactive baclofen 10 mg tablet RxNorm: 877386 1 Tablet(s) PO TID as needed for muscle spasm No Start Date 09/18/2019 Inactive Soma 350 mg Tab RxNorm: 257894 1 Tablet(s) PO TID for spasm No Star t Date 01/31/2012 Inactive Co Q-10 400 mg capsule RxNorm: 804516 1 Capsule(s) PO QD No Start D ate 01/21/2019 Inactive nystatin 100,000 unit/gram topical cream RxNorm: 641642 Applica tion TOP BID No Start Date 03/22/2015 Inactive Exforge 5 mg-160 mg Tab RxNorm: 774697 1 Tablet(s) PO QD No Start D ate 10/09/2010 Inactive Hydrocodone-Acetaminophen 7.5 mg-650 mg Tab RxNorm: 920408 1 Ta blet(s) PO Q4H No Start Date 03/07/2010 Inactive Robaxin-750 750 mg Tab RxNorm: 718876 1-2 Tablet(s) PO TID prn spasm No Start Date 05/21/2011 Inactive amlodipine 5 mg tablet RxNorm: 245917 1 Tablet(s) PO QHS No Start D ate 09/29/2015 Inactive oxycodone-acetaminophen 10 mg-325 mg tablet RxNorm: 8420459 1-2 Tablet(s) PO Q6H No Start Date 06/16/2018 Inactive Triamterene-Hydrochlorothiazide 75 mg-50 mg Tab RxNorm: 3108 18 1 Tablet(s) PO QD No Start Date 02/08/2010 Inactive Alprazolam 0.5 mg Tab RxNorm: 222905 2 Tablet(s) PO QD prn No Start Date 03/07/2010 Inactive Bystolic 20 mg tablet RxNorm: 708997 1 Tablet(s) PO QAM No Start Da te 08/17/2015 Inactive ketorolac 10 mg tablet RxNorm: 476948 1 Tablet(s) PO QID prn he adache No Start Date 07/17/2012 Inactive acyclovir 800 mg Tab RxNorm: 712071 1 Tablet(s) PO BID No Start Date 03/18/2012 Inactive duloxetine 60 mg capsule,delayed release RxNorm: 075524 1 Capsu le(s) PO QD No Start Date 09/29/2015 Inactive Norvasc 5 mg tablet RxNorm: 991069 1 Tablet(s) PO QHS No Start Date 1 10/18/2014 Inactive promethazine 25 mg tablet RxNorm: 452238 1 Tablet(s) PO Q8H use sparingly No Start Date 07/22/2013 Inactive alprazolam 0.5 mg tablet RxNorm: 217283 3 Tablet(s) PO QHS No Start Date 06/06/2015 Inactive Lunesta 3 mg tablet RxNorm: 546134 1 Tablet(s) PO QHS No Start Date 0 09/20/2017 Inactive hydrocodone-acetaminophen 10 mg-325 mg Tab RxNorm: 4948032 1-2 Tablet(s) PO TID as needed for pain No Start Date 12/10/2011 Inactive Coricidin HBP Cough & Cold 4 mg-30 mg Tab RxNorm: 6117979 Tablet (s) PO PRN No Start Date 10/09/2010 Inactive Bactroban 2 % Ointment RxNorm: 727680 Application TOP QID to so res No Start Date 02/22/2012 Inactive Flonase 50 mcg/actuation Nasal Crapo RxNorm: 181156 2 [place]rap[place] QHS No Start Date 03/03/2014 Inactive Medication Administered No Medication Administered data Immunizations Vaccine Codes Date Status Tetanus, Diptheria, Pertussis CVX: 115 02/27/2014 Results Observation Observation Code Item Item Code Result Date S ervice Location COMPREHENS[facility] METABOLIC 86674 AST 15 U/L 2019 Unknown [facility] 95761 ALT 13 U/L 2019 Unknown [facility] 45832 BUN 12 mg/dL 2019 Unknown [facility] 27554 ALBUMIN 3.9 g/dL 2019 Unknown [facility] 42651 CHLORIDE 97 mmol/L 2019 Unknown COMPREHENSIVE METABOLIC 70826 Bili Total 0.4 mg/dL 09/29 Unknown COMPREHENSIVE METABOLIC 54370 ALK PHOS 130 U/L 2019 Unknown [facility] MET[facility]OL[facility] 21149 SODIUM 136 mmol/L 09/29 Unknown COMPREHENSIVE METABOLIC 55901 CREATININE 0.92 mg/dL 09/11 Unknown [facility] MET[facility] 56004 CALCIUM 9.1 mg/dL 2019 Unknown [facility] 15455 POTASSIUM 4.4 mmol/L 09/29 Unknown COMPREH[facility] METABOLIC 22962 Total Protein 6.2 g/dL Unknown [facility] 04105 Glucose 391 mg/dL 2019 Unknown COMPREHENS[facility] METABOLIC 97415 Bicarbonate 30 mmol/L 09/11 Unknown COMPREHENSIVE METABOLIC 59679 AGAP 9 mmol/L 2019 Unknown MEAN GLUC 9536608 Calc Mean Gluc 332 mg/dL 09/29/2019 Unkn own COMPLETE BLOOD COUNT [id number] WBC 7.0 10e9/L 09/29/19 Unknown COMPLETE BLOOD COUNT [id number] RBC 4.69 10e12/L 2019 Unknown COMPLETE BLOOD COUNT 8974494 HEMOGLOBIN 14.6 g/dL 09/29/19 Unknown COMPLETE BLOOD COUNT 8029135 HEMATOCRIT 45.2 % 09/29/19 Unknown COMPLETE BLOOD COUNT 0640945 MCV 96.4 fL 0 Unknown COMPLETE BLOOD COUNT 1946310 MCH 31.1 pg 0 Unknown COMPLETE BLOOD COUNT 1219563 MCHC 32.3 g/dL 0 Unknown COMPLETE BLOOD COUNT 6342631 PLATELET COUNT 209 10e9/L Unknown COMPLETE BLOOD COUNT 9745174 Mean Plt Volume 9.8 fL Unknown COMPLETE BLOOD COUNT 5504615 Neut Auto 48.1 % 0 Unknown COMPLETE BLOOD COUNT 8264613 Lymph Auto 36.5 % 09/29/19 20 Unknown COMPLETE BLOOD COUNT 8919904 [place] Auto 8.6 % 0 Unknown COMPLETE BLOOD COUNT 0655128 RDW 13.4 % 0 Unknown COMPLETE BLOOD COUNT 1011664 Eos Auto 6.5 % 0 Unknown COMPLETE BLOOD COUNT 7584210 Baso Auto 0.3 % 0 Unknown COMPLETE BLOOD COUNT 8495143 Neutrophil Abs 3.37 10e9/L Unknown COMPLETE BLOOD COUNT [id number] Lymphocyte Abs 2.56 10e9/L Unknown COMPLETE BLOOD COUNT 1298749 Monocyte Abs 0.60 10e9/L 09/11 Unknown COMPLETE BLOOD COUNT [id number] Eosinophil Abs 0.46 10e9/L Unknown COMPLETE BLOOD COUNT 8939076 RDW-SD 45.9 fL 0 Unknown COMPLETE BLOOD COUNT 3356160 Basophil Abs 0.02 10e9/L 09/11 Unknown LIPID GROUP 15439 Cholesterol 248 mg/dL 09/29/2019 Unkno wn LIPID GROUP 52448 Triglyceride 898 mg/dL 09/29/2019 Unkn own LIPID GROUP 72195 HDL CHOLESTEROL 41 mg/dL 09/29/2019 U nknown LIPID GROUP 66815 Chol/HDL Ratio 6.05 ratio 09/29/2019 U nknown LIPID GROUP 47314 NON-HDL Chol 207 mg/dL 09/29/2019 Unkn own LIPID GROUP 79056 LDL Cholesterol N/A Trig >400 020 Unknown GLYCOSYLATED HEMOGLOBIN TEST 11625 Hgb A1c 73583-1 13.2 % 0 09/29/2019 Unknown FREE T4 72449 T4 Free 0.75 ng/dL 09/29/2019 Unknown GFR CALC 0590878 GFR Non Afr Amr >60 mL/min 09/29/2019 Un known GFR CALC 0734823 GFR Afr Amr >60 mL/min 09/29/2019 Unknow n THYROID STIMULATING HORMONE 55782 TSH 4.245 uIU/mL 09/29/2019 Unknown COMPLETE BLOOD COUNT 8576409 WBC 10.7 10e9/L 018 Unknown COMPLETE BLOOD COUNT 8104018 RBC 4.59 10e12/L 2017 Unknown COMPLETE BLOOD COUNT 1241698 HEMOGLOBIN 14.8 g/dL 12/11/19 18 Unknown COMPLETE BLOOD COUNT 7676620 HEMATOCRIT 44.9 % 12/11/19 18 Unknown COMPLETE BLOOD COUNT 2044699 MCV 97.8 fL 8 Unknown COMPLETE BLOOD COUNT 1727479 MCH 32.2 pg 8 Unknown COMPLETE BLOOD COUNT 6925858 MCHC 33.0 g/dL 8 Unknown COMPLETE BLOOD COUNT 5112758 PLATELET COUNT 261 10e9/L 10/2017 Unknown COMPLETE BLOOD COUNT 2319002 Mean Plt Volume 9.5 fL 10/2017 Unknown COMPLETE BLOOD COUNT 9279094 Neut Auto 59.9 % 8 Unknown COMPLETE BLOOD COUNT 4984593 Lymph Auto 27.4 % 12/11/19 18 Unknown COMPLETE BLOOD COUNT 4413933 [place] Auto 8.2 % 8 Unknown COMPLETE BLOOD COUNT 6692916 RDW 13.3 % 8 Unknown COMPLETE BLOOD COUNT 7753477 Eos Auto 4.1 % 8 Unknown COMPLETE BLOOD COUNT 9707411 Baso Auto 0.4 % 8 Unknown COMPLETE BLOOD COUNT 1119840 Neutrophil Abs 6.41 10e9/L Unknown COMPLETE BLOOD COUNT 0306916 Lymphocyte Abs 2.93 10e9/L Unknown COMPLETE BLOOD COUNT 0654921 Monocyte Abs 0.88 10e9/L 10/2017 Unknown COMPLETE BLOOD COUNT 1048769 Eosinophil Abs 0.44 10e9/L Unknown COMPLETE BLOOD COUNT 3939657 RDW-SD 46.2 fL 8 Unknown COMPLETE BLOOD COUNT 8113295 Basophil Abs 0.04 10e9/L 10/2017 Unknown THYROID STIMULATING HORMONE 98047 TSH 4.015 uIU/mL 12/10/2017 Unknown COMPREHENSIVE METABOLIC 49665 AST 25 U/L 2017 Unknown COMPREHENSIVE METABOLIC 89791 ALT 17 U/L 2017 Unknown COMPREHENSIVE METABOLIC 60902 BUN 19 mg/dL 2017 Unknown COMPREHENSIVE METABOLIC 86502 ALBUMIN 4.0 g/dL 2017 Unknown COMPREHENSIVE METABOLIC 60366 CHLORIDE 91 mmol/L 2017 Unknown COMPREHENSIVE METABOLIC 25268 Bili Total 0.5 mg/dL 12/10 Unknown COMPREHENSIVE METABOLIC 03084 ALK PHOS 75 U/L 2017 Unknown COMPREHENSIVE METABOLIC 53333 SODIUM 136 mmol/L 12/10 Unknown COMPREHENSIVE METABOLIC 22203 CREATININE 1.05 mg/dL 10/2017 Unknown COMPREHENSIVE METABOLIC 45100 CALCIUM 8.9 mg/dL 2017 Unknown COMPREHENSIVE METABOLIC 61544 POTASSIUM 3.4 mmol/L 12/10 Unknown COMPREHENSIVE METABOLIC 88351 Total Protein 6.5 g/dL Unknown COMPREHENSIVE METABOLIC 29188 Glucose 138 mg/dL 2017 Unknown COMPREHENSIVE METABOLIC 28172 Bicarbonate 35 mmol/L 10/2017 Unknown COMPREHENSIVE METABOLIC 80542 AGAP 10 mmol/L 2017 Unknown MEAN GLUC 5965379 Calc Mean Gluc 171 mg/dL 12/10/2017 Unkn own LIPID GROUP 27496 Cholesterol 204 mg/dL 12/10/2017 Unkno wn LIPID GROUP 07294 Triglyceride 411 mg/dL 12/10/2017 Unkn own LIPID GROUP 65798 HDL CHOLESTEROL 50 mg/dL 12/10/2017 U nknown LIPID GROUP 26017 Chol/HDL Ratio 4.08 ratio 12/10/2017 U nknown LIPID GROUP 56580 NON-HDL Chol 154 mg/dL 12/10/2017 Unkn own LIPID GROUP 95020 LDL Cholesterol N/A Trig >400 018 Unknown GLYCOSYLATED HEMOGLOBIN TEST 83341 Hgb A1c 21934-1 7.6 % 0 12/10/2017 Unknown FREE T4 39950 T4 Free 1.40 ng/dL 12/10/2017 Unknown GFR CALC 5554335 GFR Non Afr Amr 55 mL/min 12/10/2017 Unk nown GFR CALC 5256929 GFR Afr Amr >60 mL/min 12/10/2017 Unknow n GFR CALC 8830129 GFR Non Afr Amr 48 mL/min 06/28/2017 Unk nown GFR CALC 5452177 GFR Afr Amr 59 mL/min 06/28/2017 Unknown COMPREHENSIVE METABOLIC 47048 AST 32 U/L 2016 Unknown COMPREHENSIVE METABOLIC 49352 ALT 22 U/L 2016 Unknown COMPREHENSIVE METABOLIC 96303 BUN 23 mg/dL 2016 Unknown COMPREHENSIVE METABOLIC 94152 ALBUMIN 4.7 g/dL 2016 Unknown COMPREHENSIVE METABOLIC 16289 CHLORIDE 89 mmol/L 2016 Unknown COMPREHENSIVE METABOLIC 84025 Bili Total 0.5 mg/dL 06/28 Unknown COMPREHENSIVE METABOLIC 87703 ALK PHOS 90 U/L 2016 Unknown COMPREHENSIVE METABOLIC 67242 SODIUM 135 mmol/L 06/28 Unknown COMPREHENSIVE METABOLIC 12229 CREATININE 1.18 mg/dL 06/10 Unknown COMPREHENSIVE METABOLIC 49252 CALCIUM 9.7 mg/dL 2016 Unknown COMPREHENSIVE METABOLIC 74482 POTASSIUM 3.5 mmol/L 06/28 Unknown COMPREHENSIVE METABOLIC 65396 Total Protein 7.7 g/dL Unknown COMPREHENSIVE METABOLIC 89419 Glucose 129 mg/dL 2016 Unknown COMPREHENSIVE METABOLIC 21692 Bicarbonate 34 mmol/L 06/10 Unknown COMPREHENSIVE METABOLIC 50532 AGAP 12 mmol/L 2016 Unknown [facility] GROUP 19766 HDL TEST 64 MG/DL 08/27/2014 Unknown [facility] 24251 TRIG 222 MG/DL 08/27/2014 Unknown L[facility] GROUP 34880 TEST LDL 209 MG/DL 08/27/2014 Unknown [facility] GROUP 16968 CHOL 317 MG/DL 08/27/2014 Unknown LIP[facility] GROUP 66539 RCHOL/HDL 4.95 RATIO 08/27/2014 Unknow n LIPID GROUP 20621 NON-HDL CH 253 MG/DL 08/27/2014 Unknow n GFR CALC 6820662 GFR AA >60 ML/MIN 08/27/2014 Unknown GFR CALC 5709666 GFR NON-AA >60 ML/MIN 08/27/2014 Unknown COMPLETE BLOOD COUNT 6365564 WBC 7.0 10e9/L 08/27/20 14 Unknown COMPLETE BLOOD COUNT 2956964 RBC 4.98 10e12/L 2013 Unknown COMPLETE BLOOD COUNT 3304364 HGB 15.6 g/dL 4 Unknown COMPLETE BLOOD COUNT 9269245 HCT DET 46.5 % 4 Unknown COMPLETE BLOOD COUNT 8440030 MCV 93.4 fL 4 Unknown COMPLETE BLOOD COUNT 2415783 MCH 31.3 pg 4 Unknown COMPLETE BLOOD COUNT 2265592 MCHC 33.5 g/dL 4 Unknown COMPLETE BLOOD COUNT 8482951 PLT 309 10e9/L 08/27/20 14 Unknown COMPLETE BLOOD COUNT 9916761 MPV 9.6 fL 4 Unknown COMPLETE BLOOD COUNT 9274863 CADEN % 57.2 % 4 Unknown COMPLETE BLOOD COUNT 5902962 LY % 33.2 % 4 Unknown COMPLETE BLOOD COUNT 6761302 MON % 7.3 % 4 Unknown COMPLETE BLOOD COUNT 9361204 EOS % 2.0 % 4 Unknown COMPLETE BLOOD COUNT 5366288 BASO % 0.3 % 4 Unknown COMPLETE BLOOD COUNT 8810719 RDW 13.7 % 4 Unknown COMPLETE BLOOD COUNT 4777192 ABS CADEN 4.00 10e9/L 014 Unknown COMPLETE BLOOD COUNT 6978776 ABS LYMPH 2.32 10e9/L 014 Unknown COMPLETE BLOOD COUNT 9870991 ABS MONO 0.51 10e9/L 014 Unknown COMPLETE BLOOD COUNT 1672329 ABS EOS 0.14 10e9/L 014 Unknown COMPLETE BLOOD COUNT 3567138 ABS BASO 0.02 10e9/L 014 Unknown COMPLETE BLOOD COUNT 1952949 RDW-SD 45.1 fL 4 Unknown COMPREHENSIVE METABOLIC 89425 AST 13 U/L 2013 Unknown COMPREHENSIVE METABOLIC 43953 ALT 11 IU/L 2013 Unknown COMPREHENSIVE METABOLIC 77601 BUN 23 MG/DL 2013 Unknown COMPREHENSIVE METABOLIC 84637 ALBUMIN 4.4 GM/DL 2013 Unknown COMPREHENSIVE METABOLIC 15256 CHLORIDE 99 MMOL/L 2013 Unknown COMPREHENSIVE METABOLIC 08394 BILI TOT 0.5 MG/DL 2013 Unknown COMPREHENSIVE METABOLIC 21350 ALK PHOS 56 U/L 2013 Unknown COMPREHENSIVE METABOLIC 03780 SODIUM 138 MMOL/L 08/27 Unknown COMPREHENSIVE METABOLIC 37701 CREATININE 0.95 MG/DL 08/10 Unknown COMPREHENSIVE METABOLIC 41129 CALCIUM 9.8 MG/DL 2013 Unknown COMPREHENSIVE METABOLIC 98650 POTASSIUM 3.5 MMOL/L 08/27 Unknown COMPREHENSIVE METABOLIC 21066 PROT TOT 6.8 GM/DL 2013 Unknown COMPREHENSIVE METABOLIC 58630 Glucose 90 MG/DL 2013 Unknown COMPREHENSIVE METABOLIC 94162 BICARB 34 MMOL/L 2013 Unknown COMPREHENSIVE METABOLIC 43075 ANION GAP 5 MEQ/L 2013 Unknown LIPASE 70257 LIPASE 11 IU/L 07/21/2014 Unknown AMYLASE 55759 AMYLASE 39 IU/L 07/21/2014 Unknown HEMOGLOBIN A1C (GLYCOSYLATED) 9224895 A1C HPLC 32741-1 6.2 % 03/05/2013 Unknown THYROID STIMULATING HORMONE 42704 TSH 6.986 uIU/ML 03/05/2013 Unknown COMPLETE BLOOD COUNT 8647245 WBC 12.7 10e9/L 013 Unknown COMPLETE BLOOD COUNT 5564100 RBC 4.53 10e12/L 2012 Unknown COMPLETE BLOOD COUNT 7361244 HGB 14.7 g/dL 3 Unknown COMPLETE BLOOD COUNT 7674130 HCT DET 43.1 % 3 Unknown COMPLETE BLOOD COUNT 4861893 MCV 95.1 fL 3 Unknown COMPLETE BLOOD COUNT 2605227 MCH 32.5 pg 3 Unknown COMPLETE BLOOD COUNT 9592127 MCHC 34.1 g/dL 3 Unknown COMPLETE BLOOD COUNT 0039385 PLT 346 10e9/L 03/05/20 13 Unknown COMPLETE BLOOD COUNT 3198392 MPV 9.5 fL 3 Unknown COMPLETE BLOOD COUNT 7670663 CADEN % 67.6 % 3 Unknown COMPLETE BLOOD COUNT 8062756 LY % 22.1 % 3 Unknown COMPLETE BLOOD COUNT 8784605 MON % 6.6 % 3 Unknown COMPLETE BLOOD COUNT 6204799 EOS % 3.3 % 3 Unknown COMPLETE BLOOD COUNT 7955227 BASO % 0.4 % 3 Unknown COMPLETE BLOOD COUNT 7675157 RDW 14.0 % 3 Unknown COMPLETE BLOOD COUNT 7876931 ABS CADEN 8.59 10e9/L 013 Unknown COMPLETE BLOOD COUNT 2087476 ABS LYMPH 2.81 10e9/L 013 Unknown COMPLETE BLOOD COUNT 5358097 ABS MONO 0.84 10e9/L 013 Unknown COMPLETE BLOOD COUNT 7082939 ABS EOS 0.42 10e9/L 013 Unknown COMPLETE BLOOD COUNT 8139767 ABS BASO 0.05 10e9/L 013 Unknown COMPLETE BLOOD COUNT 8720356 RDW-SD 46.0 fL 3 Unknown FREE T4 22152 FREE T4 1.14 NG/DL 03/05/2013 Unknown COMPREHENSIVE METABOLIC 89504 AST 17 U/L 2012 Unknown COMPREHENSIVE METABOLIC 60834 ALT 12 IU/L 2012 Unknown COMPREHENSIVE METABOLIC 73920 BUN 24 MG/DL 2012 Unknown COMPREHENSIVE METABOLIC 48257 ALBUMIN 4.2 GM/DL 2012 Unknown COMPREHENSIVE METABOLIC 46218 CHLORIDE 93 MMOL/L 2012 Unknown COMPREHENSIVE METABOLIC 96722 BILI TOT 0.5 MG/DL 2012 Unknown COMPREHENSIVE METABOLIC 45929 ALK PHOS 75 U/L 2012 Unknown COMPREHENSIVE METABOLIC 75251 SODIUM 141 MMOL/L 03/05 Unknown COMPREHENSIVE METABOLIC 71420 CREATININE 1.36 MG/DL 02/09 Unknown COMPREHENSIVE METABOLIC 36685 CALCIUM 9.2 MG/DL 2012 Unknown COMPREHENSIVE METABOLIC 50301 POTASSIUM 3.1 MMOL/L 03/05 Unknown COMPREHENSIVE METABOLIC 99311 PROT TOT 6.9 GM/DL 2012 Unknown COMPREHENSIVE METABOLIC 72072 Glucose 123 MG/DL 2012 Unknown COMPREHENSIVE METABOLIC 14435 BICARB 36 MMOL/L 2012 Unknown COMPREHENSIVE METABOLIC 46175 ANION GAP 12 MEQ/L 2012 Unknown GFR CALC 1178705 GFR AA 51.0L ML/MIN 03/05/2013 Unknow n GFR CALC 3847481 GFR NON-AA 42.0L ML/MIN 03/05/2013 Unkno wn COMPREHENSIVE METABOLIC 75864 AST 14 U/L 2012 Unknown COMPREHENSIVE METABOLIC 48617 ALT 11 IU/L 2012 Unknown COMPREHENSIVE METABOLIC 45373 BUN 16 MG/DL 2012 Unknown COMPREHENSIVE METABOLIC 39731 ALBUMIN 4.2 GM/DL 2012 Unknown COMPREHENSIVE METABOLIC 63072 CHLORIDE 98 MMOL/L 2012 Unknown COMPREHENSIVE METABOLIC 23260 BILI TOT 0.4 MG/DL 2012 Unknown COMPREHENSIVE METABOLIC 79659 ALK PHOS 77 U/L 2012 Unknown COMPREHENSIVE METABOLIC 26946 SODIUM 139 MMOL/L 09/25 Unknown COMPREHENSIVE METABOLIC 20673 CREATININE 0.86 MG/DL 09/10 Unknown COMPREHENSIVE METABOLIC 19133 CALCIUM 9.5 MG/DL 2012 Unknown COMPREHENSIVE METABOLIC 99306 POTASSIUM 3.8 MMOL/L 09/25 Unknown COMPREHENSIVE METABOLIC 44071 PROT TOT 6.8 GM/DL 2012 Unknown COMPREHENSIVE METABOLIC 92878 Glucose 91 MG/DL 2012 Unknown COMPREHENSIVE METABOLIC 27254 BICARB 32 MMOL/L 2012 Unknown COMPREHENSIVE METABOLIC 42794 ANION GAP 9 MEQ/L 2012 Unknown FREE T4 52735 FREE T4 0.98 NG/DL 09/25/2012 Unknown THYROID STIMULATING HORMONE 61836 TSH 1.736 uIU/ML 09/25/2012 Unknown C-REACTIVE PROTEIN (CRP) QUANT 06253 CRP 2.3 MG/DL 09/25/2012 Unknown COMPLETE BLOOD COUNT 8602629 WBC 11.9 10e9/L 013 Unknown COMPLETE BLOOD COUNT 6287929 RBC 4.87 10e12/L 2012 Unknown COMPLETE BLOOD COUNT 6788816 HGB 15.1 g/dL 3 Unknown COMPLETE BLOOD COUNT 3559674 HCT DET 44.8 % 3 Unknown COMPLETE BLOOD COUNT 9160835 MCV 92.0 fL 3 Unknown COMPLETE BLOOD COUNT 5636729 MCH 31.0 pg 3 Unknown COMPLETE BLOOD COUNT 9772906 MCHC 33.7 g/dL 3 Unknown COMPLETE BLOOD COUNT 3769206 PLT 343 10e9/L 09/25/19 13 Unknown COMPLETE BLOOD COUNT 6243416 MPV 9.0 fL 3 Unknown COMPLETE BLOOD COUNT 1248102 CADEN % 68.2 % 3 Unknown COMPLETE BLOOD COUNT 2783469 LY % 22.4 % 3 Unknown COMPLETE BLOOD COUNT 1726967 MON % 6.4 % 3 Unknown COMPLETE BLOOD COUNT 4880908 EOS % 2.7 % 3 Unknown COMPLETE BLOOD COUNT 5702606 BASO % 0.3 % 3 Unknown COMPLETE BLOOD COUNT 6835601 RDW 13.8 % 3 Unknown COMPLETE BLOOD COUNT 7071403 ABS CADEN 8.12 10e9/L 013 Unknown COMPLETE BLOOD COUNT 2592614 ABS LYMPH 2.67 10e9/L 013 Unknown COMPLETE BLOOD COUNT 3207353 ABS MONO 0.76 10e9/L 013 Unknown COMPLETE BLOOD COUNT 7921172 ABS EOS 0.32 10e9/L 013 Unknown COMPLETE BLOOD COUNT 5130191 ABS BASO 0.04 10e9/L 013 Unknown COMPLETE BLOOD COUNT 6615720 RDW-SD 45.6 fL 3 Unknown GFR CALC 7934899 GFR AA >60 ML/MIN 09/25/2012 Unknown GFR CALC 3742222 GFR NON-AA >60 ML/MIN 09/25/2012 Unknown ERYTHROCYTE SEDIMENTATION RATE 88279 ESR 19 MM/HR 05/06/2012 Unknown VITAMIN B 12 FOLIC ACID 61404|55153 VIT B 12 922 PG/ML 04/11 Unknown VITAMIN B 12 FOLIC ACID 72586|48689 FOLIC ACID 13.6 NG/ML Unknown URIC ACID 49962 URIC ACID 7.8 MG/DL 05/06/2012 Unknown COMPLETE BLOOD COUNT 94241 WBC 11.9 10e9/L 012 Unknown COMPLETE BLOOD COUNT 18163 RBC 5.30 10e12/L 2011 Unknown COMPLETE BLOOD COUNT 98127 HGB 16.6 g/dL 2 Unknown COMPLETE BLOOD COUNT 75509 HCT DET 47.2 % 2 Unknown COMPLETE BLOOD COUNT 79188 MCV 89.1 fL 2 Unknown COMPLETE BLOOD COUNT 99183 MCH 31.3 pg 2 Unknown COMPLETE BLOOD COUNT 92190 MCHC 35.2 g/dL 2 Unknown COMPLETE BLOOD COUNT 58108 PLT 362 10e9/L 05/06/20 12 Unknown COMPLETE BLOOD COUNT 69572 MPV 9.4 fL 2 Unknown COMPLETE BLOOD COUNT 48343 CADEN % 68.2 % 2 Unknown COMPLETE BLOOD COUNT 32268 LY % 22.0 % 2 Unknown COMPLETE BLOOD COUNT 10230 MON % 6.9 % 2 Unknown COMPLETE BLOOD COUNT 16892 EOS % 2.6 % 2 Unknown COMPLETE BLOOD COUNT 52934 BASO % 0.3 % 2 Unknown COMPLETE BLOOD COUNT 96855 RDW 12.8 % 2 Unknown COMPLETE BLOOD COUNT 66205 ABS CADEN 8.12 10e9/L 012 Unknown COMPLETE BLOOD COUNT 92308 ABS LYMPH 2.62 10e9/L 012 Unknown COMPLETE BLOOD COUNT 87016 ABS MONO 0.82 10e9/L 012 Unknown COMPLETE BLOOD COUNT 90713 ABS EOS 0.31 10e9/L 012 Unknown COMPLETE BLOOD COUNT 10167 ABS BASO 0.04 10e9/L 012 Unknown COMPLETE BLOOD COUNT 08019 RDW-SD 41.5 fL 2 Unknown GFR CALC 5457720 GFR AA >60 ML/MIN 05/06/2012 Unknown GFR CALC 5579835 GFR NON-AA 58.0L ML/MIN 05/06/2012 Unkno wn FREE T4 39261 FREE T4 1.15 NG/DL 05/06/2012 Unknown THYROID STIMULATING HORMONE 34098 TSH 1.568 uIU/ML 05/06/2012 Unknown COMPREHENSIVE METABOLIC 92120 AST 20 U/L 2011 Unknown COMPREHENSIVE METABOLIC 05119 ALT 12 IU/L 2011 Unknown COMPREHENSIVE METABOLIC 74132 BUN 20 MG/DL 2011 Unknown COMPREHENSIVE METABOLIC 78927 ALBUMIN 4.5 GM/DL 2011 Unknown COMPREHENSIVE METABOLIC 08214 CHLORIDE 91 MMOL/L 2011 Unknown COMPREHENSIVE METABOLIC 92809 BILI TOT 0.4 MG/DL 2011 Unknown COMPREHENSIVE METABOLIC 79867 ALK PHOS 73 U/L 2011 Unknown COMPREHENSIVE METABOLIC 19489 SODIUM 139 MMOL/L 05/06 Unknown COMPREHENSIVE METABOLIC 65471 CREATININE 1.02 MG/DL 04/11 Unknown COMPREHENSIVE METABOLIC 01821 CALCIUM 9.7 MG/DL 2011 Unknown COMPREHENSIVE METABOLIC 66386 POTASSIUM 3.1 MMOL/L 05/06 Unknown COMPREHENSIVE METABOLIC 50124 PROT TOT 7.3 GM/DL 2011 Unknown COMPREHENSIVE METABOLIC 27454 Glucose 118 MG/DL 2011 Unknown COMPREHENSIVE METABOLIC 23196 BICARB 33 MMOL/L 2011 Unknown COMPREHENSIVE METABOLIC 30793 ANION GAP 15 MEQ/L 2011 Unknown Procedures Procedure Codes Date ROUTINE VENIPUNCTURE CPT-4: 34964 09/29/2019 URINALYSIS NONAUTO W/O SCOPE CPT-4: 45457 09/29/2019 COMPREHEN METABOLIC PANEL CPT-4: 27705 09/29/2019 LIPID PANEL CPT-4: 08164 09/29/2019 A1C HPLC CPT-4: 67611 09/29/2019 ASSAY OF FREE THYROXINE CPT-4: 23858 09/29/2019 ASSAY THYROID STIM HORMONE CPT-4: 19725 09/29/2019 COMPLETE CBC W/AUTO DIFF WBC CPT-4: 38353 09/29/2019 URINALYSIS NONAUTO W/O SCOPE CPT-4: 51747 09/30/2018 MICROALBUMIN QUANTITATIVE CPT-4: 32553 09/30/2018 CEFTRIAXONE SODIUM INJECTION CPT-4: J0696 06/19/2018 THER/PROPH/DIAG INJ SC/IM CPT-4: 25732 06/19/2018 CEFTRIAXONE SODIUM INJECTION CPT-4: J0696 06/17/2018 THER/PROPH/DIAG INJ SC/IM CPT-4: 16190 06/17/2018 THER/PROPH/DIAG INJ SC/IM CPT-4: 59469 05/16/2018 KETOROLAC TROMETHAMINE INJ CPT-4: J1885 05/16/2018 ONDANSETRON HCL INJECTION CPT-4: J2405 05/16/2018 THER/PROPH/DIAG INJ SC/IM CPT-4: 39057 05/16/2018 ROUTINE VENIPUNCTURE CPT-4: 70356 03/20/2018 COMPREHEN METABOLIC PANEL CPT-4: 87448 03/20/2018 DEXAMETHASONE SODIUM PHOS CPT-4: J1100 02/11/2018 THER/PROPH/DIAG INJ SC/IM CPT-4: 91471 02/11/2018 TRIAMCINOLONE ACET INJ NOS CPT-4: J3301 02/11/2018 CEFTRIAXONE SODIUM INJECTION CPT-4: J0696 02/01/2018 THER/PROPH/DIAG INJ SC/IM CPT-4: 48917 02/01/2018 CEFTRIAXONE SODIUM INJECTION CPT-4: J0696 01/30/2018 THER/PROPH/DIAG INJ SC/IM CPT-4: 25170 01/30/2018 ROUTINE VENIPUNCTURE CPT-4: 98611 12/10/2017 ASSAY OF FREE THYROXINE CPT-4: 74728 12/10/2017 ASSAY THYROID STIM HORMONE CPT-4: 69343 12/10/2017 COMPREHEN METABOLIC PANEL CPT-4: 30406 12/10/2017 COMPLETE CBC W/AUTO DIFF WBC CPT-4: 56978 12/10/2017 LIPID PANEL CPT-4: 90221 12/10/2017 A1C HPLC CPT-4: 52835 12/10/2017 CEFTRIAXONE SODIUM INJECTION CPT-4: J0696 12/10/2017 THER/PROPH/DIAG INJ SC/IM CPT-4: 61857 12/10/2017 CEFTRIAXONE SODIUM INJECTION CPT-4: J0696 12/07/2017 THER/PROPH/DIAG INJ SC/IM CPT-4: 68294 12/07/2017 DEXAMETHASONE SODIUM PHOS CPT-4: J1100 12/07/2017 THER/PROPH/DIAG INJ SC/IM CPT-4: 34584 12/07/2017 CEFTRIAXONE SODIUM INJECTION CPT-4: J0696 10/08/2017 THER/PROPH/DIAG INJ SC/IM CPT-4: 13293 10/08/2017 CEFTRIAXONE SODIUM INJECTION CPT-4: J0696 09/21/2017 THER/PROPH/DIAG INJ SC/IM CPT-4: 62632 09/21/2017 CEFTRIAXONE SODIUM INJECTION CPT-4: J0696 09/20/2017 THER/PROPH/DIAG INJ SC/IM CPT-4: 51494 09/20/2017 REMOVAL OF NAIL PLATE CPT-4: 91776 08/29/2017 THER/PROPH/DIAG INJ SC/IM CPT-4: 46660 08/29/2017 TRIAMCINOLONE ACET INJ NOS CPT-4: J3301 08/29/2017 CEFTRIAXONE SODIUM INJECTION CPT-4: J0696 08/29/2017 THER/PROPH/DIAG INJ SC/IM CPT-4: 15006 08/29/2017 DESTRUCT PREMALG LESION (Cryosurgery) CPT-4: 25953 ROUTINE VENIPUNCTURE CPT-4: 82545 06/27/2017 ASSAY OF FREE THYROXINE CPT-4: 94086 06/27/2017 ASSAY THYROID STIM HORMONE CPT-4: 54000 06/27/2017 COMPREHEN METABOLIC PANEL CPT-4: 08947 06/27/2017 COMPLETE CBC W/AUTO DIFF WBC CPT-4: 68962 06/27/2017 EXC TR-EXT B9+REECE 0.5 CM< CPT-4: 78581 01/24/2017 THER/PROPH/DIAG INJ SC/IM CPT-4: 29873 08/02/2016 DEXAMETHASONE SODIUM PHOS CPT-4: J1100 08/02/2016 DESTRUCT PREMALG LESION (Cryosurgery) CPT-4: 05052 EXC TR-EXT B9+REECE 0.5 CM< CPT-4: 73667 08/01/2016 AEROBIC WOUND CULTURE & STN CPT-4: 67799 07/06/2016 CEFTRIAXONE SODIUM INJECTION CPT-4: J0696 05/25/2016 THER/PROPH/DIAG INJ SC/IM CPT-4: 78733 05/25/2016 THER/PROPH/DIAG INJ SC/IM CPT-4: 79337 04/26/2016 DEXAMETHASONE SODIUM PHOS CPT-4: J1100 04/26/2016 CEFTRIAXONE SODIUM INJECTION CPT-4: J0696 04/26/2016 THER/PROPH/DIAG INJ SC/IM CPT-4: 27521 04/26/2016 THER/PROPH/DIAG INJ SC/IM CPT-4: 17395 02/09/2016 TRIAMCINOLONE ACET INJ NOS CPT-4: J3301 02/09/2016 URINALYSIS NONAUTO W/O SCOPE CPT-4: 99246 01/24/2016 URINE CULTURE/ COLONY COUNT CPT-4: 03460 01/24/2016 THER/PROPH/DIAG INJ SC/IM CPT-4: 63410 12/08/2015 TRIAMCINOLONE ACET INJ NOS CPT-4: J3301 12/08/2015 THER/PROPH/DIAG INJ SC/IM CPT-4: 94342 10/07/2015 TRIAMCINOLONE ACET INJ NOS CPT-4: J3301 10/07/2015 DESTRUCT PREMALG LESION (Cryosurgery) CPT-4: 33368 THER/PROPH/DIAG INJ SC/IM CPT-4: 34146 03/16/2015 METHYLPREDNISOLONE 40 MG INJ CPT-4: J1030 03/16/2015 DESTRUCT PREMALG LESION (Cryosurgery) CPT-4: 16260 THER/PROPH/DIAG INJ SC/IM CPT-4: 51160 09/11/2014 METHYLPREDNISOLONE 40 MG INJ CPT-4: J1030 09/11/2014 TRIAMCINOLONE ACET INJ NOS CPT-4: J3301 09/11/2014 CEFTRIAXONE SODIUM INJECTION CPT-4: J0696 09/11/2014 THER/PROPH/DIAG INJ SC/IM CPT-4: 82767 09/11/2014 ROUTINE VENIPUNCTURE CPT-4: 28288 08/27/2014 COMPREHEN METABOLIC PANEL CPT-4: 38796 08/27/2014 COMPLETE CBC W/AUTO DIFF WBC CPT-4: 05106 08/27/2014 LIPID PANEL CPT-4: 28477 08/27/2014 ROUTINE VENIPUNCTURE CPT-4: 45214 07/21/2014 ASSAY OF AMYLASE CPT-4: 80391 07/21/2014 ASSAY OF LIPASE CPT-4: 48119 07/21/2014 THER/PROPH/DIAG INJ SC/IM CPT-4: 92855 07/15/2014 TRIAMCINOLONE ACET INJ NOS CPT-4: J3301 07/15/2014 ROUTINE VENIPUNCTURE CPT-4: 52144 05/14/2014 ASSAY OF FREE THYROXINE CPT-4: 98648 05/14/2014 ASSAY THYROID STIM HORMONE CPT-4: 02254 05/14/2014 COMPREHEN METABOLIC PANEL CPT-4: 83146 05/14/2014 COMPLETE CBC W/AUTO DIFF WBC CPT-4: 19820 05/14/2014 LIPID PANEL CPT-4: 76485 05/14/2014 CEFTRIAXONE SODIUM INJECTION CPT-4: J0696 04/21/2014 THER/PROPH/DIAG INJ SC/IM CPT-4: 65380 04/21/2014 THER/PROPH/DIAG INJ SC/IM CPT-4: 77628 04/21/2014 TRIAMCINOLONE ACET INJ NOS CPT-4: J3301 04/21/2014 THER/PROPH/DIAG INJ SC/IM CPT-4: 63047 03/04/2014 METHYLPREDNISOLONE 40 MG INJ CPT-4: J1030 03/04/2014 TRIAMCINOLONE ACET INJ NOS CPT-4: J3301 03/04/2014 CEFTRIAXONE SODIUM INJECTION CPT-4: J0696 03/04/2014 THER/PROPH/DIAG INJ SC/IM CPT-4: 64097 03/04/2014 TDAP VACCINE 7 YRS/> IM CPT-4: 58552 02/27/2014 IMMUNIZATION ADMIN CPT-4: 68407 02/27/2014 DESTRUCT PREMALG LESION (Cryosurgery) CPT-4: 22926 DESTRUCT PREMALG LES 2-14 CPT-4: 01782 01/13/2014 THER/PROPH/DIAG INJ SC/IM CPT-4: 00497 10/21/2013 METHYLPREDNISOLONE 40 MG INJ CPT-4: J1030 10/21/2013 TRIAMCINOLONE ACET INJ NOS CPT-4: J3301 10/21/2013 CEFTRIAXONE SODIUM INJECTION CPT-4: J0696 08/27/2013 THER/PROPH/DIAG INJ SC/IM CPT-4: 37663 08/27/2013 THER/PROPH/DIAG INJ SC/IM CPT-4: 95863 08/27/2013 METHYLPREDNISOLONE 40 MG INJ CPT-4: J1030 08/27/2013 TRIAMCINOLONE ACET INJ NOS CPT-4: J3301 08/27/2013 THER/PROPH/DIAG INJ SC/IM CPT-4: 65828 06/23/2013 METHYLPREDNISOLONE 40 MG INJ CPT-4: J1030 06/23/2013 TRIAMCINOLONE ACET INJ NOS CPT-4: J3301 06/23/2013 THER/PROPH/DIAG INJ SC/IM CPT-4: 69133 05/26/2013 METHYLPREDNISOLONE 40 MG INJ CPT-4: J1030 05/26/2013 TRIAMCINOLONE ACET INJ NOS CPT-4: J3301 05/26/2013 ROUTINE VENIPUNCTURE CPT-4: 64640 03/05/2013 ASSAY OF FREE THYROXINE CPT-4: 44494 03/05/2013 ASSAY THYROID STIM HORMONE CPT-4: 49991 03/05/2013 COMPREHEN METABOLIC PANEL CPT-4: 43174 03/05/2013 COMPLETE CBC W/AUTO DIFF WBC CPT-4: 52408 03/05/2013 A1C GLYCOSYLATED HEMOGLOBIN TEST CPT-4: 86169 013 DRAIN/INJECT JOINT/BURSA CPT-4: 57878 12/04/2012 METHYLPREDNISOLONE 40 MG INJ CPT-4: J1030 12/04/2012 TRIAMCINOLONE ACET INJ NOS CPT-4: J3301 12/04/2012 CEFTRIAXONE SODIUM INJECTION CPT-4: J0696 11/21/2012 THER/PROPH/DIAG INJ SC/IM CPT-4: 04124 11/21/2012 THER/PROPH/DIAG INJ SC/IM CPT-4: 24348 10/14/2012 METHYLPREDNISOLONE 40 MG INJ CPT-4: J1030 10/14/2012 TRIAMCINOLONE ACET INJ NOS CPT-4: J3301 10/14/2012 URINALYSIS NONAUTO W/O SCOPE CPT-4: 69485 09/27/2012 ROUTINE VENIPUNCTURE CPT-4: 84856 09/25/2012 ASSAY OF FREE THYROXINE CPT-4: 23877 09/25/2012 ASSAY THYROID STIM HORMONE CPT-4: 57446 09/25/2012 COMPREHEN METABOLIC PANEL CPT-4: 37730 09/25/2012 COMPLETE CBC W/AUTO DIFF WBC CPT-4: 14298 09/25/2012 C-REACTIVE PROTEIN CPT-4: 83206 09/25/2012 THER/PROPH/DIAG INJ SC/IM CPT-4: 02982 08/29/2012 METHYLPREDNISOLONE 40 MG INJ CPT-4: J1030 08/29/2012 TRIAMCINOLONE ACET INJ NOS CPT-4: J3301 08/29/2012 DESTRUCT PREMALG LESION (Cryosurgery) CPT-4: 43446 THER/PROPH/DIAG INJ SC/IM CPT-4: 11618 05/06/2012 METHYLPREDNISOLONE 40 MG INJ CPT-4: J1030 05/06/2012 TRIAMCINOLONE ACET INJ NOS CPT-4: J3301 05/06/2012 VITAMIN B 12 FOLIC ACID CPT-4: 66663|38343 05/06/2012 RBC SED RATE AUTOMATED CPT-4: 75495 05/06/2012 ROUTINE VENIPUNCTURE CPT-4: 05579 05/06/2012 ASSAY OF FREE THYROXINE CPT-4: 19704 05/06/2012 ASSAY THYROID STIM HORMONE CPT-4: 58609 05/06/2012 COMPREHEN METABOLIC PANEL CPT-4: 67828 05/06/2012 COMPLETE CBC W/AUTO DIFF WBC CPT-4: 63275 05/06/2012 ASSAY OF BLOOD/URIC ACID CPT-4: 19960 05/06/2012 THER/PROPH/DIAG INJ SC/IM CPT-4: 36324 03/19/2012 KETOROLAC TROMETHAMINE INJ CPT-4: J1885 03/19/2012 KETOROLAC TROMETHAMINE INJ CPT-4: J1885 01/30/2012 THER/PROPH/DIAG INJ SC/IM CPT-4: 70876 01/30/2012 PROMETHAZINE HCL INJECTION CPT-4: J2550 01/30/2012 THER/PROPH/DIAG INJ SC/IM CPT-4: 62115 01/24/2012 METHYLPREDNISOLONE 40 MG INJ CPT-4: J1030 01/24/2012 TRIAMCINOLONE ACET INJ NOS CPT-4: J3301 01/24/2012 THER/PROPH/DIAG INJ SC/IM CPT-4: 18228 09/13/2011 KETOROLAC TROMETHAMINE INJ CPT-4: J1885 09/13/2011 THER/PROPH/DIAG INJ SC/IM CPT-4: 73350 09/13/2011 PROMETHAZINE HCL INJECTION CPT-4: J2550 09/13/2011 CEFTRIAXONE SODIUM INJECTION CPT-4: J0696 07/20/2011 THER/PROPH/DIAG INJ SC/IM CPT-4: 68309 07/20/2011 THER/PROPH/DIAG INJ SC/IM CPT-4: 96743 07/20/2011 METHYLPREDNISOLONE INJECTION CPT-4: J2930 07/20/2011 URINALYSIS NONAUTO W/O SCOPE CPT-4: 28157 05/09/2011 CEFTRIAXONE SODIUM INJECTION CPT-4: J0696 05/09/2011 THER/PROPH/DIAG INJ SC/IM CPT-4: 74289 05/09/2011 THER/PROPH/DIAG INJ SC/IM CPT-4: 09944 05/09/2011 PROMETHAZINE HCL INJECTION CPT-4: J2550 05/09/2011 HYDRATION IV INFUSION INIT CPT-4: 71694 05/09/2011 DESTRUCT PREMALG LESION (Cryosurgery) CPT-4: 87486 DESTRUCT PREMALG LES 2-14 CPT-4: 00749 07/19/2010 REMOVAL OF SKIN TAGS <W/15 CPT-4: 80788 05/30/2010 THER/PROPH/DIAG INJ SC/IM CPT-4: 99506 04/05/2010 CEFTRIAXONE SODIUM INJECTION CPT-4: J0696 04/05/2010 TRIAMCINOLONE ACET INJ NOS CPT-4: J3301 04/05/2010 METHYLPREDNISOLONE 40 MG INJ CPT-4: J1030 04/05/2010 THER/PROPH/DIAG INJ SC/IM CPT-4: 03694 04/05/2010 TRIAMCINOLONE ACET INJ NOS CPT-4: J3301 03/09/2010 METHYLPREDNISOLONE 40 MG INJ CPT-4: J1030 03/09/2010 THER/PROPH/DIAG INJ SC/IM CPT-4: 02782 03/09/2010 THER/PROPH/DIAG INJ SC/IM CPT-4: 91900 03/09/2010 CEFTRIAXONE SODIUM INJECTION CPT-4: J0696 03/09/2010 Vital Signs Date Vital 09/30/2019 Blood Pressure 1: 132/80 Code: 8480-6 BMI: 35.8 Code: 76336-5 Heart Rate 1: 88 bpm Height: 5'4" Respiratory Rate: 20 bpm SpO2: 95% Tempera ture: 36.9 (C) / 98.5 (F) Weight: 210 lbs 05/28/2019 Blood Pressure 1: 126/82 Code: 8480-6 BMI: 35.0 Code: 58502-9 Heart Rate 1: 88 bpm Height: 5'4" [...] 1: 128/90 Code: 8480-6 BMI: 37.2 Code: 82413-8 Heart Rate 1: 84 bpm Height: 5'4" Respiratory Rate: 20 bpm SpO2: 95% Tempera ture: 36.6 (C) / 97.8 (F) Weight: 217 lbs 08/27/2018 Blood Pressure 1: 128/88 Code: 8480-6 BMI: 38.3 Code: 11200-0 Heart Rate 1: 84 bpm Height: 5'4" [...] 1: 119/72 Code: 8480-6 BMI: 37.4 Code: 56789-1 Heart Rate 1: 82 bpm Height: 5'4" Respiratory Rate: 12 bpm SpO2: 94% Tempera ture: 35.2 (C) / 95.4 (F) Weight: 218 lbs 12/18/2017 Blood Pressure 1: 128/86 Code: 8480-6 BMI: 37.8 Code: 08799-8 Heart Rate 1: 84 bpm Height: 5'4" [...] 1: 128/82 Code: 8480-6 BMI: 35.5 Code: 34584-2 Heart Rate 1: 84 bpm Height: 5'4" [...] 1: 128/82 Code: 8480-6 BMI: 30.2 Code: 40089-7 Heart Rate 1: 80 bpm Height: 5'4" [...] 1: 128/86 Code: 8480-6 BMI: 32.8 Code: 06808-5 Heart Rate 1: 66 bpm Height: 5'4" Respiratory Rate: 18 bpm Temperature: 36 .3 (C) / 97.3 (F) Weight: 191 lbs 06/23/2013 Blood Pressure 1: 132/94 Code: 8480-6 BMI: 34.0 Code: 22241-9 Heart Rate 1: 84 bpm Height: 5'4" Respiratory Rate: 20 bpm Temperature: 36 .8 (C) / 98.2 (F) Weight: 198 lbs 05/26/2013 Blood Pressure 1: 114/80 Code: 8480-6 BMI: 35.0 Code: 34710-2 Heart Rate 1: 80 bpm Height: 5'4" Respiratory Rate: 20 bpm Temperature: 36 .4 (C) / 97.6 (F) Weight: 204 lbs 04/16/2013 Blood Pressure 1: 114/82 Code: 8480-6 BMI: 36.7 Code: 30535-7 Heart Rate 1: 84 bpm Height: 5'4" Respiratory Rate: 20 bpm Temperature: 36 .7 (C) / 98.0 (F) Weight: 214 lbs 03/05/2013 Blood Pressure 1: 136/90 Code: 8480-6 BMI: 37.1 Code: 66053-8 Heart Rate 1: 84 bpm Height: 5'4" [...] 1: 168/114 Code: 8480-6 BMI: 36.2 Code: 41330-4 Heart Rate 1: 104 bpm Height: 5'4" Respiratory Rate: 20 bpm Temperature: 36 .8 (C) / 98.2 (F) Weight: 211 lbs 11/22/2012 Blood Pressure 1: 128/90 Code: 8480-6 Heart Rate 1: 88 bpm Respiratory Rate: 20 bpm SpO2: 96% Temperature: 36.8 (C) / 98.2 (F) 11/21/2012 Blood Pressure 1: 146/100 Code: 8480-6 BMI: 35.7 Code: 62490-5 Heart Rate 1: 96 bpm Height: 5'4" [...] 1: 138/100 Code: 8480-6 BMI: 35.7 Code: 07949-7 Heart Rate 1: 96 bpm Height: 5'4" Respiratory Rate: 20 bpm Temperature: 36 .8 (C) / 98.2 (F) Weight: 208 lbs 05/06/2012 Blood Pressure 1: 154/102 Code: 8480-6 BMI: 34.7 Code: 78112-4 Heart Rate 1: 116 bpm Height: 5'4" Respiratory Rate: 20 bpm Temperature: 36 .8 (C) / 98.2 (F) Weight: 202 lbs 04/03/2012 Blood Pressure 1: 134/94 Code: 8480-6 BMI: 34.8 Code: 40987-9 Heart Rate 1: 108 bpm Height: 5'4" Respiratory Rate: 20 bpm Temperature: 36 .8 (C) / 98.2 (F) Weight: 203 lbs 03/19/2012 Blood Pressure 1: 148/106 Code: 8480-6 BMI: 35.0 Code: 40700-3 Heart Rate 1: 100 bpm Height: 5'4" Respiratory Rate: 20 bpm Temperature: 36 .6 (C) / 97.9 (F) Weight: 204 lbs 02/22/2012 Blood Pressure 1: 146/94 Code: 8480-6 He art Rate 1: 88 bpm 02/21/2012 Blood Pressure 1: 172/120 Code: 8480-6 B lood Pressure 2: 152/106 Code: 8480-6 Heart Rate 1: 116 bpm 02/20/2012 Blood Pressure 1: 160/100 Code: 8480-6 BMI: 32.0 Code: 12739-1 Heart Rate 1: 84 bpm Height: 5'7" Temperature: 36.5 (C) / 97.7 (F) Weight: 204 lbs 01/30/2012 Blood Pressure 1: 152/110 Code: 8480-6 BMI: 32.0 Code: 47210-0 Heart Rate 1: 116 bpm Height: 5'7" Respiratory Rate: 20 bpm Temperature: 37 .0 (C) / 98.6 (F) Weight: 204 lbs 01/24/2012 Blood Pressure 1: 146/100 Code: 8480-6 BMI: 32.0 Code: 07558-8 Heart Rate 1: 100 bpm Height: 5'7" Respiratory Rate: 20 bpm Temperature: 36 .7 (C) / 98.0 (F) Weight: 204 lbs 01/10/2012 Blood Pressure 1: 156/94 Code: 8480-6 BMI: 32.6 Code: 47785-9 Heart Rate 1: 72 bpm Height: 5'7" Respiratory Rate: 20 bpm Temperature: 36 .8 (C) / 98.2 (F) Weight: 208 lbs 12/11/2011 Blood Pressure 1: 146/100 Code: 8480-6 Heart Rat e 1: 116 bpm Height: 5'7" Respiratory Rate: 20 bpm Temperature: 36.9 (C) / 98.4 (F) We ight: 11/09/2011 Blood Pressure 1: 148/96 Code: 8480-6 BMI: 32.1 Code: 70757-6 Heart Rate 1: 116 bpm Height: 5'7" Respiratory Rate: 20 bpm Temperature: 36 .7 (C) / 98.0 (F) Weight: 205 lbs 09/13/2011 Blood Pressure 1: 126/88 Code: 8480-6 Heart Rate 1: 88 bpm Height: 5'7" Respiratory Rate: 20 bpm Temperature: 36.9 (C) / 98.4 (F) We ight: 08/31/2011 Blood Pressure 1: 118/82 Code: 8480-6 BMI: 32.0 Code: 36297-3 Heart Rate 1: 80 bpm Height: 5'7" Temperature: 36.4 (C) / 97.6 (F) Weight: 204 lbs 07/06/2011 Blood Pressure 1: 128/86 Code: 8480-6 BMI: 30.9 Code: 01955-0 Heart Rate 1: 92 bpm Height: 5'7" Respiratory Rate: 20 bpm Temperature: 36 .9 (C) / 98.4 (F) Weight: 197 lbs 06/06/2011 Blood Pressure 1: 112/74 Code: 8480-6 BMI: 31.0 Code: 80011-7 Heart Rate 1: 72 bpm Height: 5'7" [...] 1: 128/92 Code: 8480-6 BMI: 33.6 Code: 54789-0 Heart Rate 1: 104 bpm Height: 5'4" Temperature: 36.8 (C) / 98.3 (F) Weight: 196 lbs Functional Status No Functional Status data Reason For Visit Reason For Visit Effective Dates Notes follow up 09/30/2019 follow up 05/28/2019 ER [...] Check-up Encounters Encounter Performer Location Codes Date ([id number]) OFFICE/OUTPATIENT VISIT EST Diagnosis: DM w/o complication type II, uncontrolled[ICD10: E11.65] Diagnosis: Hypertriglyceridemia[ICD10: E78.1] Diagnosis: Essential hypertension[ICD10: I10] María Elena JEAN Fabiola [facility] [employer] CPT-4: 21799 09/30/2019 ([id number]) NURSE/OUTPATIENT VISIT EST Diagnosis: Essential (primary) hypertension[ICD10: I10] Diagnosis: Cervicalgia[ICD10: M54.2] Diagnosis: Hyperglycemia, unspecified[ICD10: R73.9] Diagnosis: Mixed hyperlipidemia[ICD10: E78.2] María Elena JEAN Fabiola APPA[facility] [employer] CPT-4: 77255 09/29/2019 ([id number]) OFFICE/OUTPATIENT VISIT EST Diagnosis: Essential (primary) hypertension[ICD10: I10] Diagnosis: Fall from bed, sequela[ICD10: W06.XXXS] María Elena REED LucioJj TD [employer] CPT-4: 77472 05/28/2019 ([id number]) NURSE/OUTPATIENT VISIT EST Diagnosis: Essential (primary) hypertension[ICD10: I10] María Elena JUARES LucioJj [facility] [employer] CPT-4: 04609 05/19/2019 ([id number]) OFFICE/OUTPATIENT VISIT EST Diagnosis: Essential (primary) hypertension[ICD10: I10] Diagnosis: Type 2 diabetes mellitus with hyperglycemia[ICD10: E11.65] Diagnosis: Intervertebral disc disorders with radiculopathy, 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] Diagnosis: Hormone replacement therapy[ICD10: Z79.890] María Elena JUARES LucioJj [facility] [employer] CPT-4: 13763 01/22/2019 ([id number]) OFFICE/OUTPATIENT VISIT EST Diagnosis: Essential (primary) hypertension[ICD10: I10] Diagnosis: Type 2 diabetes mellitus with hyperglycemia[ICD10: E11.65] María Elena MONTEROQUELINE LucioJj TD [employer] CPT-4: 12099 09/30/2018 ([id number]) OFFICE/OUTPATIENT VISIT EST Diagnosis: Pain in left elbow[ICD10: M25.522] Diagnosis: Acute stress reaction[ICD10: F43.0] Diagnosis: Primary insomnia[ICD10: F51.01] Diagnosis: Abnormal weight gain[ICD10: R63.5] María Elena JEAN DatamJj [facility] CPT-4: 90172 08/27/2018 ([id number]) OFFICE/OUTPATIENT VISIT EST Diagnosis: Acute recurrent sinusitis, unspecified[ICD10: J01.91] Diagnosis: Follicular disorder, unspecified[ICD10: L73.9] Diagnosis: Tinea corporis[ICD10: B35.4] María Elena [facility] CPT-4: 51651 08/09/2018 ([id number]) OFFICE/OUTPATIENT VISIT EST Diagnosis: Tinea corporis[ICD10: B35.4] Diagnosis: Anxiety disorder, unspecified[ICD10: F41.9] Diagnosis: Menopausal and female climacteric states[ICD10: N95.1] María Elena [facility] CPT-4: 32834 07/22/2018 ([id number]) NURSE/OUTPATIENT VISIT EST Diagnosis: Cellulitis of right toe[ICD10: L03.031] María Elena [facility] CPT-4: 00458 06/19/2018 ([id number]) OFFICE/OUTPATIENT VISIT EST Diagnosis: Cellulitis of right toe[ICD10: L03.031] Kathleen [facility] CPT-4: 37749 06/17/2018 ([id number]) OFFICE/OUTPATIENT VISIT EST Diagnosis: Migraine without aura, intractable, without status migrainosus[ICD10: G43.019] Diagnosis: Zoster without complications[ICD10: B02.9] Kathleen [facility] CPT-4: 30286 05/16/2018 ([id number]) OFFICE/OUTPATIENT VISIT EST Diagnosis: Cellulitis of right lower limb[ICD10: L03.115] Kathleen [facility] CPT-4: 63218 03/20/2018 ([id number]) OFFICE/OUTPATIENT VISIT EST Diagnosis: Cellulitis of right lower limb[ICD10: L03.115] Kathleen [facility] CPT-4: 95551 03/18/2018 ([id number]) OFFICE/OUTPATIENT VISIT EST Diagnosis: Cellulitis of right lower limb[ICD10: L03.115] Kathleen [facility] CPT-4: 77552 03/15/2018 ([id number]) OFFICE/OUTPATIENT VISIT EST Diagnosis: Acute sinusitis, unspecified[ICD10: J01.90] Katlheen [facility] CPT-4: 32883 02/11/2018 ([id number]) NURSE/OUTPATIENT VISIT EST Diagnosis: Otitis media, unspecified, right ear[ICD10: H66.91] María Elena [facility] CPT-4: 73097 02/01/2018 ([id number]) OFFICE/OUTPATIENT VISIT EST Diagnosis: Acute suppurative otitis media without spontaneous rupture of ear drum, left ear[ICD10: H66.002] Diagnosis: Abnormal weight gain[ICD10: R63.5] Diagnosis: Intervertebral disc disorders with radiculopathy, 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] Kathleen [facility] CPT-4: 99 214 01/30/2018 ([id number]) PREV VISIT EST AGE 40-64 Diagnosis: Encounter for general adult medical examination without abnormal findings[ICD10: Z00.00] Diagnosis: Essential (primary) hypertension[ICD10: I10] Diagnosis: Mixed hyperlipidemia[ICD10: E78.2] Diagnosis: Type 2 diabetes mellitus with hyperglycemia[ICD10: E11.65] Diagnosis: 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] María Elena APPIAH [employer] [facility] CPT-4: 94205 12/18/2017 ([id number]) OFFICE/OUTPATIENT VISIT EST Diagnosis: Cellulitis of right toe[ICD10: L03.031] Diagnosis: Mixed hyperlipidemia[ICD10: E78.2] Diagnosis: Essential (primary) hypertension[ICD10: I10] Diagnosis: Hyperglycemia, unspecified[ICD10: R73.9] Diagnosis: Nontoxic goiter, 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] María Elena [facility] CPT-4: 72702 12/10/2017 ([id number]) OFFICE/OUTPATIENT VISIT EST Diagnosis: Cellulitis of right toe[ICD10: L03.031] Diagnosis: Acute sinusitis, unspecified[ICD10: J01.90] Kathleen [facility] CPT-4: 18346 12/07/2017 OFFICE/OUTPATIENT VISIT EST Diagnosis: Acute maxillary sinusitis, unspecified[ICD10: J01.00] Kathleen [facility] CPT-4: 92049 10/08/2017 ([id number]) OFFICE/OUTPATIENT VISIT EST Diagnosis: Cellulitis of left toe[ICD10: L03.032] María Elena [facility] CPT-4: 94276 09/21/2017 ([id number]) OFFICE/OUTPATIENT VISIT EST Diagnosis: Insomnia, unspecified[ICD10: G47.00] Diagnosis: Major depressive disorder, single episode, unspecified[ICD10: F32.9] Diagnosis: Anxiety disorder, unspecified[ICD10: F41.9] Diagnosis: Cellulitis of left toe[ICD10: L03.032] Diagnosis: Snoring[ICD10: R06.83] Kathleen APPIAH DO 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] Diagnosis: Primary insomnia[ICD10: F51.01] Diagnosis: Other fatigue[ICD10: R53.83] María Elena [facility] CPT-4: 37384 04/10/2017 ([id number]) OFFICE/OUTPATIENT VISIT EST Diagnosis: Primary insomnia[ICD10: F51.01] Diagnosis: Localized edema[ICD10: R60.0] Diagnosis: 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] María Elena [facility] CPT-4: 49645 12/13/2016 ([id number]) OFFICE/OUTPATIENT VISIT EST Diagnosis: Primary insomnia[ICD10: F51.01] Diagnosis: Cyanosis[ICD10: R23.0] María Elena Bazzi [employer] CPT-4: 05132 11/01/2016 ([id number]) PREV VISIT EST AGE 40-64 Diagnosis: Encounter for gynecological examination (general) (routine) without abnormal findings[ICD10: Z01.419] Diagnosis: Encounter for routine child health examination without abnormal findings[ICD10: Z00.129] María Elena APPIAH [employer] CPT-4: 70765 10/17/2016 ([id number]) OFFICE/OUTPATIENT VISIT EST Diagnosis: Other seasonal allergic rhinitis[ICD10: J30.2] María Elena APPIA[facility] [employer] CPT-4: 12342 10/10/2016 ([id number]) OFFICE/OUTPATIENT VISIT EST Diagnosis: Pain in left arm[ICD10: M79.602] Diagnosis: Contact with and (suspected) exposure to potentially hazardous body fluids[ICD10: Z77.21] Diagnosis: 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, 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] Diagnosis: Unspecified open wound, right foot, sequela[ICD10: S91.301S] María Elena APPIA[facility] [employer] CPT-4: 54184 09/19/2016 ([id number]) OFFICE/OUTPATIENT VISIT EST Diagnosis: Chronic sinusitis, unspecified[ICD10: J32.9] Diagnosis: Allergic rhinitis due to pollen[ICD10: J30.1] María Elena APPIA[facility] [employer] CPT-4: 44703 08/24/2016 ([id number]) OFFICE/OUTPATIENT VISIT EST Diagnosis: Acute bronchitis, unspecified[ICD10: J20.9] María Elena [facility] CPT-4: 84968 08/16/2016 ([id number]) OFFICE/OUTPATIENT VISIT EST Diagnosis: Otitis media, unspecified, right ear[ICD10: H66.91] Diagnosis: Acute bronchitis, unspecified[ICD10: J20.9] María Elena [facility] CPT-4: 63925 08/10/2016 ([id number]) OFFICE/OUTPATIENT VISIT EST Diagnosis: Acute recurrent sinusitis, unspecified[ICD10: J01.91] Diagnosis: Allergic rhinitis due to pollen[ICD10: J30.1] María Elena [facility]IA[facility] CPT-4: 66259 08/02/2016 ([id number]) OFFICE/OUTPATIENT VISIT EST Diagnosis: Pain in unspecified joint[ICD10: M25.50] María Elena APPIAH DO [facility] CPT-4: 22404 07/27/2016 OFFICE/OUTPATIENT VISIT EST Diagnosis: 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] Diagnosis: Acute recurrent sinusitis, unspecified[ICD10: J01.91] Diagnosis: Other fatigue[ICD10: R53.83] Diagnosis: Primary insomnia[ICD10: F51.01] Diagnosis: Pain in unspecified joint[ICD10: M25.50] María Elena APPIAH DO [facility] CPT-4: 55140 07/20/2016 ([id number]) OFFICE/OUTPATIENT VISIT EST Diagnosis: Blister (nonthermal), left great toe, initial encounter[ICD10: S90.422A] Loan APPIAH DO [facility] CPT-4: 56812 ([id number]) OFFICE/OUTPATIENT VISIT EST Diagnosis: Acute recurrent sinusitis, unspecified[ICD10: J01.91] María Elena APPIAH DO [facility] CPT-4: 39909 05/25/2016 ([id number]) OFFICE/OUTPATIENT VISIT EST Diagnosis: Acute sinusitis, unspecified[ICD10: J01.90] María Elena APPIAH DO [facility] CPT-4: 10655 04/26/2016 ([id number]) OFFICE/OUTPATIENT VISIT EST Diagnosis: Flushing[ICD10: R23.2] Diagnosis: Primary insomnia[ICD10: F51.01] María Elena APPIAH DO [facility] CPT-4: 09467 03/02/2016 ([id number]) OFFICE/OUTPATIENT VISIT EST Diagnosis: Other seasonal allergic rhinitis[ICD10: J30.2] Loan APPIAH [facility] CPT-4: 76381 02/09/2016 ([id number]) OFFICE/OUTPATIENT VISIT EST Diagnosis: Primary insomnia[ICD10: F51.01] Diagnosis: Urinary tract infection, site not specified[ICD10: N39.0] María Elena APPIAH [facility] CPT-4: 91741 01/24/2016 ([id number]) OFFICE/OUTPATIENT VISIT EST Diagnosis: Other specified disorders of Eustachian tube, bilateral[ICD10: H69.83] Diagnosis: Allergic rhinitis, unspecified[ICD10: J30.9] Loan APPIAH 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 CPT-4: 14714 12/08/2015 ([id number]) OFFICE/OUTPATIENT VISIT EST Diagnosis: Allergic rhinitis, unspecified[ICD10: J30.9] Diagnosis: Pain in unspecified joint[ICD10: M25.50] María Elena APPIAH [facility] CPT-4: 67267 10/07/2015 ([id number]) OFFICE/OUTPATIENT VISIT EST Diagnosis: Essential (primary) hypertension[ICD10: I10] María Elena APPIAH [facility] CPT-4: 16980 10/06/2015 OFFICE/OUTPATIENT VISIT EST Diagnosis: Localized enlarged lymph nodes[ICD10: R59.0] Diagnosis: Local infection of the skin and subcutaneous tissue, unspecified[ICD10: L08.9] June APPIAH DO [facility] CPT- 4: 80142 09/14/2015 ([id number]) OFFICE/OUTPATIENT VISIT EST Diagnosis: Essential (primary) hypertension[ICD10: I10] Diagnosis: Actinic keratosis[ICD10: L57.0] María Elena APPIAH DO [facility] CPT-4: 15405 09/07/2015 ([id number]) OFFICE/OUTPATIENT VISIT EST Diagnosis: Essential (primary) hypertension[ICD10: I10] Diagnosis: Acute stress reaction[ICD10: F43.0] María Elena APPIAH DO [facility] CPT-4: 84205 08/18/2015 ([id number]) OFFICE/OUTPATIENT VISIT EST Diagnosis: Essential (primary) hypertension[ICD10: I10] María Elena APPIAH DO [facility] CPT-4: 95570 07/07/2015 ([id number]) OFFICE/OUTPATIENT VISIT EST Diagnosis: Essential (primary) hypertension[ICD10: I10] María Elena APPIAH DO [facility] CPT-4: 06794 06/24/2015 ([id number]) OFFICE/OUTPATIENT VISIT EST Diagnosis: Essential (primary) hypertension[ICD10: I10] María Elena APPIAH DO [facility] CPT-4: 25250 06/21/2015 ([id number]) OFFICE/OUTPATIENT VISIT EST Diagnosis: Essential (primary) hypertension[ICD10: I10] Diagnosis: Mixed hyperlipidemia[ICD10: E78.2] Diagnosis: Acute stress reaction[ICD10: F43.0] Diagnosis: Primary insomnia[ICD10: F51.01] María Elena APPIAH DO [facility] CPT-4: 34373 06/16/2015 ([id number]) OFFICE/OUTPATIENT VISIT EST Diagnosis: INSOMNIA NOS[ICD9: 780.52] Diagnosis: HYPERTENSION[ICD9: 401.9] Diagnosis: Stress reaction[ICD9: 308.9] María Elena APPIAH DO [facility] CPT-4: 00370 06/02/2015 ([id number]) OFFICE/OUTPATIENT VISIT EST Diagnosis: HYPERTENSION[ICD9: 401.9] Diagnosis: Stress reaction[ICD9: 308.9] María Elena APPIAH DO [facility] CPT-4: 92581 05/20/2015 ([id number]) OFFICE/OUTPATIENT VISIT EST Diagnosis: Skin lesion[ICD9: 709.9] 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 CPT-4: 29985 03/16/2015 OFFICE/OUTPATIENT VISIT EST Diagnosis: Otitis media[ICD9: 382.9] Diagnosis: SINUSITIS, ACUTE[ICD9: 461.9] June Felixdaniella APPIAH [facility] CPT-4: 56491 09/11/2014 ([id number]) OFFICE/OUTPATIENT VISIT EST Diagnosis: HYPERLIPIDEMIA NEC/NOS[ICD9: 272.4] María Elena APPIAH DO [facility] CPT-4: 32187 08/31/2014 ([id number]) OFFICE/OUTPATIENT VISIT EST Diagnosis: - I - HYPERTENSION[ICD9: 401.9] Diagnosis: HYPERLIPIDEMIA NEC/NOS[ICD9: 272.4] María Elena APPIAH DO [facility] CPT-4: 76443 08/27/2014 ([id number]) OFFICE/OUTPATIENT VISIT EST Diagnosis: ABDOMINAL PAIN[ICD9: 789.00] Diagnosis: DYSPEPSIA[ICD9: 536.8] Diagnosis: Thoracic back pain[ICD9: 724.1] María Elena APPIAH DO [facility] CPT-4: 71838 07/21/2014 ([id number]) OFFICE/OUTPATIENT VISIT EST Diagnosis: ALLERGIC RHINITIS[ICD9: 477.9] María Elena APPIAH [facility] CPT-4: 04047 07/15/2014 ([id number]) OFFICE/OUTPATIENT VISIT EST Diagnosis: EDEMA[ICD9: 782.3] Diagnosis: Chronic insomnia[ICD9: 780.52] María Elena APPIAH [facility] CPT-4: 31178 05/18/2014 ([id number]) OFFICE/OUTPATIENT VISIT EST Diagnosis: Thyromegaly[ICD9: 240.9] Diagnosis: - I - HYPERTENSION[ICD9: 401.9] Diagnosis: ROUTINE MEDICAL EXAM[ICD9: V70.0] Diagnosis: EDEMA[ICD9: 782.3] María Elena APPIAH [facility] CPT-4: 86554 05/14/2014 OFFICE/OUTPATIENT VISIT EST Diagnosis: BRONCHITIS, ACUTE[ICD9: 466.0] Diagnosis: SINUSITIS, ACUTE[ICD9: 461.9] María Elena APPIAH [facility] CPT-4: 34292 04/21/2014 OFFICE/OUTPATIENT VISIT EST Diagnosis: SINUSITIS, ACUTE[ICD9: 461.9] June Gabriellare MARÍA ELENA APPIAH [facility] CPT-4: 71323 03/04/2014 ([id number]) OFFICE/OUTPATIENT VISIT EST Diagnosis: VACCINE FOR TDAP[ICD10: Z23] María Elena APPIAH [facility] CPT-4: 75143 02/27/2014 ([id number]) OFFICE/OUTPATIENT VISIT EST Diagnosis: Seborrheic keratoses, inflamed[ICD9: 702.11] Diagnosis: ACTINIC KERATOSIS[ICD9: 702.0] Diagnosis: INSOMNIA NOS[ICD9: 780.52] María Elena PANDYA [facility] CPT-4: 78223 01/13/2014 OFFICE/OUTPATIENT VISIT EST Diagnosis: EUSTACHIAN TUBE DYSFUNCTION[ICD9: 381.81] Diagnosis: ALLERGIC RHINITIS[ICD9: 477.9] Diagnosis: Serous otitis media[ICD9: 381.4] María Elena APPIAH [facility] CPT-4: 45297 12/24/2013 ([id number]) OFFICE/OUTPATIENT VISIT EST Diagnosis: SINUSITIS, ACUTE[ICD9: 461.9] Diagnosis: ALLERGIC RHINITIS[ICD9: 477.9] Diagnosis: EUSTACHIAN TUBE DYSFUNCTION[ICD9: 381.81] María Elena APPIAH DO [facility] CPT-4: 42042 11/12/2013 ([id number]) OFFICE/OUTPATIENT VISIT EST Diagnosis: ALLERGIC RHINITIS[ICD9: 477.9] Diagnosis: SINUSITIS, ACUTE[ICD9: 461.9] María Elena APPIAH DO [facility] CPT-4: 02588 10/21/2013 ([id number]) OFFICE/OUTPATIENT VISIT EST Diagnosis: ASYMPTOMATIC VARICOSE VEINS[ICD9: 454.9] Diagnosis: INSOMNIA NOS[ICD9: 780.52] María Elena PANDYA [facility] CPT-4: 47986 09/22/2013 OFFICE/OUTPATIENT VISIT EST Diagnosis: SINUSITIS, ACUTE[ICD9: 461.9] June Washingtongurmeetfatimah MARÍA ELENA APPIAH 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 CPT-4: 48560 08/04/2013 ([id number]) OFFICE/OUTPATIENT VISIT EST Diagnosis: Cervicalgia[ICD9: 723.1] Diagnosis: SPASM OF MUSCLE[ICD9: 728.85] Diagnosis: CEPHALGIA, TENSION[ICD9: 307.81] María Elena APPIAH [facility] CPT-4: 27418 07/23/2013 ([id number]) OFFICE/OUTPATIENT VISIT EST Diagnosis: EUSTACHIAN TUBE DYSFUNCTION[ICD9: 381.81] Diagnosis: ALLERGIC RHINITIS[ICD9: 477.9] María Elena APPIAH [facility] CPT-4: 24874 06/23/2013 ([id number]) OFFICE/OUTPATIENT VISIT EST Diagnosis: ALLERGIC RHINITIS[ICD9: 477.9] Diagnosis: ACUTE SEROUS OTITIS MEDIA[ICD9: 381.01] Diagnosis: EUSTACHIAN TUBE DYSFUNCTION[ICD9: 381.81] María Elena Hicks TD [facility] CPT-4: 61517 05/26/2013 ([id number]) OFFICE/OUTPATIENT VISIT EST Diagnosis: HYPERTENSION[ICD9: 401.9] Diagnosis: EDEMA[ICD9: 782.3] Diagnosis: Serous otitis media[ICD9: 381.4] María Elena Hicks [facility] CPT-4: 10320 04/16/2013 ([id number]) OFFICE/OUTPATIENT VISIT EST Diagnosis: SINUSITIS, ACUTE[ICD9: 461.9] Diagnosis: ALLERGIC RHINITIS[ICD9: 477.9] Diagnosis: EDEMA[ICD9: 782.3] Diagnosis: Thyromegaly[ICD9: 240.9] Diagnosis: MALAISE AND FATIGUE[ICD9: 780.79] María Elena iHcks [facility] CPT-4: 14692 03/05/2013 ([id number]) OFFICE/OUTPATIENT VISIT EST Diagnosis: PAIN, LOWER BACK[ICD9: 724.2] Diagnosis: SPASM OF MUSCLE[ICD9: 728.85] María Elena Hicks [facility] CPT-4: 94760 12/23/2012 OFFICE/OUTPATIENT VISIT EST Diagnosis: Low back pain[ICD9: 724.2] Lashawn Hicks [facility] CPT-4: 96624 12/16/2012 ([id number]) OFFICE/OUTPATIENT VISIT EST Diagnosis: PAIN, LOWER BACK[ICD9: 724.2] Diagnosis: SCIATICA[ICD9: 724.3] Diagnosis: Lumbar herniated disc[ICD9: 722.10] María Elena Hicks [facility] CPT-[facility]: 21026 12/09/2012 ([id number]) OFFICE/OUTPATIENT VISIT EST Diagnosis: PAIN, LOWER BACK[ICD9: 724.2] Diagnosis: SCIATICA[ICD9: 724.3] Diagnosis: LUMBAR DISC DISPLACEMENT[ICD9: 722.10] María Elena ISAAC TANIA APPIAH DO [facility] CPT-4: 81257 12/04/2012 OFFICE/OUTPATIENT VISIT EST Diagnosis: Pneumonia[ICD9: 486] Mary SerranoRustam MARÍA ELENA APPIAH DO [facility] CPT-4: 54713 11/22/2012 ([id number]) OFFICE/OUTPATIENT VISIT EST Diagnosis: PNEUMONIA, ORGANISM[ICD9: 486] Diagnosis: Exacerbation of RAD (reactive airway disease)[ICD9: 493.92] María Elena APPIAH DO [facility] CPT-4: 66798 11/21/2012 OFFICE/OUTPATIENT VISIT EST Diagnosis: HYPERTENSION[ICD9: 401.9] Diagnosis: Cephalgia[ICD9: 784.0] Lashawn Eckert MARÍA ELENA APPIAH DO [facility] CPT-4: 32616 10/29/2012 ([id number]) OFFICE/OUTPATIENT VISIT EST Diagnosis: MALAISE AND FATIGUE[ICD9: 780.79] Diagnosis: ARTHRALGIA-MULTIPLE SITES[ICD9: 719.49] María Elena APPIAH DO [facility] CPT-4: 25923 10/14/2012 ([id number]) OFFICE/OUTPATIENT VISIT EST Diagnosis: URINARY FREQUENCY[ICD9: 788.41] María Elena APPIAH DO [facility] CPT-4: 08964 09/27/2012 ([id number]) OFFICE/OUTPATIENT VISIT EST Diagnosis: MALAISE AND FATIGUE[ICD9: 780.79] Diagnosis: ARTHRALGIA-MULTIPLE SITES[ICD9: 719.49] María Elena Seamusabbey KYLAH APPIAH DO [facility] CPT-4: 91297 09/25/2012 ([id number]) OFFICE/OUTPATIENT VISIT EST Diagnosis: SINUSITIS, ACUTE[ICD9: 461.9] Diagnosis: EUSTACHIAN TUBE DYSFUNCTION[ICD9: 381.81] María Elena Td APPIAH DO [facility] CPT-4: 99368 08/29/2012 OFFICE/OUTPATIENT VISIT EST Diagnosis: ACTINIC KERATOSIS[ICD9: 702.0] Diagnosis: Inflamed seborrheic keratosis[ICD9: 702.11] Diagnosis: Skin cancer of face[ICD9: 173.31] Diagnosis: HYPERTENSION[ICD9: 401.9] María Elena WAY NDER [facility] CPT-4: 50117 08/12/2012 ([id number]) OFFICE/OUTPATIENT VISIT EST Diagnosis: ARTHRALGIA-MULTIPLE SITES[ICD9: 719.49] Diagnosis: GOUT[ICD9: 274.9] Diagnosis: HYPERTENSION[ICD9: 401.9] Diagnosis: Tachycardia[ICD9: 785.0] María Elena HU KARLOS [facility] CPT-4: 74623 05/06/2012 ([id number]) OFFICE/OUTPATIENT VISIT EST Diagnosis: INSOMNIA NOS[ICD9: 780.52] María Elena KENTER [facility] CPT-4: 07776 04/03/2012 ([id number]) OFFICE/OUTPATIENT VISIT EST Diagnosis: INSOMNIA NOS[ICD9: 780.52] Diagnosis: HYPERTENSION[ICD9: 401.9] Diagnosis: MIGRAINE NOS/NOT INTRCBL[ICD9: 346.90] María Elena Waymindimaryjane CulverJARED SJj [facility] CPT-[facility]: 47125 03/19/2012 ([id number]) OFFICE/OUTPATIENT VISIT EST Diagnosis: CELLULITIS[ICD9: 682.9] Diagnosis: Ankle pain[ICD9: 719.47] Diagnosis: HYPERTENSION[ICD9: 401.9] María Elena WAY NDERose Mary [facility] CPT-4: 23979 02/20/2012 ([id number]) OFFICE/OUTPATIENT VISIT EST Diagnosis: MIGRAINE NOS/NOT INTRCBL[ICD9: 346.90] Diagnosis: Vomiting[ICD9: 787.03] María Elena TANNER R [facility] CPT-4: 15217 01/30/2012 ([id number]) OFFICE/OUTPATIENT VISIT EST Diagnosis: EDEMA[ICD9: 782.3] Diagnosis: HYPERTENSION[ICD9: 401.9] Diagnosis: ALLERGIC RHINITIS[ICD9: 477.9] Diagnosis: ARTHRALGIA-MULTIPLE SITES[ICD9: 719.49] María Elena Waymindimaryjane ValdesJj [facility] [employer] [facility] CPT-4: 86649 01/24/2012 ([id number]) OFFICE/OUTPATIENT VISIT EST Diagnosis: SPASM OF MUSCLE[ICD9: 728.85] Diagnosis: Thoracic back pain[ICD9: 724.1] Diagnosis: Cervical pain[ICD9: 723.1] María Elena Seamusmindimaryjane MARÍA ELENA Fabiola PANDYA [facility] CPT-4: 11189 01/10/2012 OFFICE/OUTPATIENT VISIT EST Diagnosis: PAIN, LOWER BACK[ICD9: 724.2] Diagnosis: LUMBAR DISC DISPLACEMENT[ICD9: 722.10] María Elena ISAAC TANIA ValdesJj TD [facility] CPT-4: 58891 12/11/2011 OFFICE/OUTPATIENT VISIT EST Diagnosis: MIGRAINE NOS/NOT INTRCBL[ICD9: 346.90] Diagnosis: SINUSITIS, ACUTE[ICD9: 461.9] María Elena Seamusmindimaryjane MARÍA ELENA LucioJj [facility] CPT-[facility]: 02623 11/09/2011 OFFICE/OUTPATIENT VISIT EST Diagnosis: MIGRAINE NOS/NOT INTRCBL[ICD9: 346.90] Diagnosis: LYMPHADENOPATHY[ICD9: 785.6] María Elena Seamusmindimaryjane MARÍA ELENA LucioJj [facility] CPT-[facility]: 31719 09/13/2011 OFFICE/OUTPATIENT VISIT EST Diagnosis: MALAISE AND FATIGUE[ICD9: 780.79] Diagnosis: ARTHRALGIA-MULTIPLE SITES[ICD9: 719.49] María Elena Seamusabbey MONTERO APARNAALCIDES LucioJj [facility] CPT-4: 80455 08/31/2011 OFFICE/OUTPATIENT VISIT EST Diagnosis: SINUSITIS, ACUTE[ICD9: 461.9] María Elena Seamusabbey JUARES LucioJj TD [facility] CPT-4: 44649 07/20/2011 OFFICE/OUTPATIENT VISIT EST Diagnosis: HYPERTENSION[ICD9: 401.9] Diagnosis: PAIN, LOWER BACK[ICD9: 724.2] Diagnosis: SPASM OF MUSCLE[ICD9: 728.85] María Elena JUARES LucioJj [facility] CPT-[facility]: 82560 07/06/2011 OFFICE/OUTPATIENT VISIT EST Diagnosis: MIGRAINE NOS/NOT INTRCBL[ICD9: 346.90] Diagnosis: HYPERTENSION[ICD9: 401.9] María Elena JUARES S. ORE NDER DO [facility] CPT-4: 58480 05/22/2011 OFFICE/OUTPATIENT VISIT EST Diagnosis: SINUSITIS, ACUTE[ICD9: 461.9] Diagnosis: MIGRAINE NOS/NOT INTRCBL[ICD9: 346.90] Diagnosis: Dehydration[ICD9: 276.51] Diagnosis: Vomiting[ICD9: 787.03] María Elena MONTEROQUELINE Lucio. ORENDE R DO [facility] CPT-4: 04434 05/09/2011 ([id number]) OFFICE/OUTPATIENT VISIT EST María Elena Td ISAAC UELINE S. ORENDER DO [facility] CPT-4: 87636 02/14/2011 ([id number]) OFFICE/OUTPATIENT VISIT EST María Elena Seamusmindimaryjane ISAAC UELINE S. ORENDER DO [facility] CPT-4: 43087 02/03/2011 ([id number]) OFFICE/OUTPATIENT VISIT EST María Elena Seamusmindimaryjane ISAAC UELINE S. ORENDER DO [facility] CPT-4: 56453 01/31/2011 ([id number]) OFFICE/OUTPATIENT VISIT EST María Elena Seamusmindimaryjane ISAAC UELINE S. ORENDER DO [facility] CPT-4: 30715 01/25/2011 ([id number]) OFFICE/OUTPATIENT VISIT EST María Elena Td ISAAC UELINE S. ORENDER DO [facility] CPT-4: 10665 01/18/2011 ([id number]) OFFICE/OUTPATIENT VISIT EST María Elena ISAAC UELINE S. ORENDER DO [facility] CPT-4: 87802 11/29/2010 ([id number]) OFFICE/OUTPATIENT VISIT, EST María Elena MONTERO QUEALCIDES S. ORENDER DO [facility] CPT-4: 81858 10/10/2010 ([id number]) OFFICE/OUTPATIENT VISIT, EST María Elena Seamusabbey MONTERO APARNAALCIDES S. ORENDER DO [facility] CPT-4: 42154 06/07/2010 ([id number]) OFFICE/OUTPATIENT VISIT, EST María Elena MONTERO QUEALCIDES S. ORENDER DO [facility] CPT-4: 98002 04/27/2010 ([id number]) OFFICE/OUTPATIENT VISIT, EST María Elena MONTERO APARNAALCIDES S. ORENDER DO [facility] CPT-4: 76366 04/05/2010 ([id number]) OFFICE/OUTPATIENT VISIT, EST María Elena APPIAH DO [facility] CPT-4: 36967 03/09/2010 ([id number]) OFFICE/OUTPATIENT VISIT, EST María Elena [facility] CPT-4: 94970 03/03/2010 ([id number]) OFFICE/OUTPATIENT VISIT, EST María Elena APPIAH DO [facility] CPT-4: 40417 01/17/2010 ([id number]) PREV VISIT, EST, AGE 40-64 María Elena APPIAH DO [facility] CPT-4: 48571 12/27/2009 Plan of Care Planned Activity Notes Codes Status Date Visit Diagnosis Plan: Hypertriglyceridemia Discussion: Mediterranean diet [...] ICD-9 : 250.02 ICD-10 : E11.65 09/30/2019 Patient Education: Premarin- [employer] Coupon [id number] https://www.Voxeo.com/samplemd/resources/getResource/61/79229q25-o012-2oss-u4 Completed 09/30/2019 Appointment: María Elena [facility] [phone] [facility] [place] [facility] 09/29/2019 Appointment: María Elena Appiah WPtel: [phone] [facility] [place] Won't have the new insurance till [...] : W06.XXXS 05/28/2019 Appointment: María Elena Appiahtel: [address] [place], [place] [phone] [place] FOLLOW UP 05/28/2019 Appointment: María Elena Appiah WPtel: [address] [place], [place] [phone] [place] BP CHECK 05/19/2019 Visit Diagnosis Plan: [...] : Z79.890 01/22/2019 Appointment: María Elena Appiahtel: [address] [place], [place] [phone] [place] FOLLOW UP 01/22/2019 Patient Education: estradiol- [employer] Coupon [id number] https://www.Voxeo.com/samplemd/resources/getResource/61/845v529p-5cf5-0z99-2k Completed 01/22/2019 Appointment: María Elena Appiahtel: [facility] [place] CANCELED 01/20/2019 Appointment: María Elena Appiahtel: [address] [place] [address] [place] LM NO SHOW 01/06/2019 Appointment: María Elena Appiah WPtel: [address] [place] [address] [place] CANCELED 10/17/2018 Appointment: María Elena Appiah WPtel: [address] [place] [address] US BP CHECK 10/09/2018 Visit Diagnosis Plan: [...] I10 09/30/2018 Appointment: María Elena Appiah WPtel: [address] [place] [address] US FOLLOW UP 09/30/2018 Visit Diagnosis Plan: [...] F51.01 08/27/2018 Appointment: María Elena Appiahtel: [address] [place] [address] ACUTE ILLNESS 08/27/2018 Appointment: María Elena Appiah WPtel: [address] [place] [address] US Patient stated she went out to [...] Tyle... 08/09/2018 Appointment: María Elena Appiah WPtel: [address] [place] [address] ACUTE ILLNESS 08/09/2018 Appointment: María Elena Appiah WPtel: [address] [place] [address] NO SHOW 08/08/2018 Visit Diagnosis Plan: Anxiety [...] B35.4 07/22/2018 Appointment: María Elena Appiah WPtel: [address] [place] [address] ACUTE ILLNESS 07/22/2018 Appointment: María Elena Appiah WPtel: [address] [place] [address] [place] INJECTION 06/19/2018 Patient Education: Patient Medication [...] ICD-10 : L03.031 06/17/2018 Appointment: Kathleen Zuniga [address] [place] [address] ACUTE ILLNESS 06/17/2018 Patient Education: Patient Medication [...] ICD-10 : B02.9 05/16/2018 Appointment: Kathleen Zuniga [address] [place] [address] ACUTE ILLNESS 05/16/2018 Patient Education: Patient Medication [...] : L03.115 03/20/2018 Appointment: Kathleen Zuniga [address] [place], [place] [address] FOLLOW UP 03/20/2018 Patient Education: Patient Medication [...] : L03.115 03/18/2018 Appointment: Kathleen Zuniga [address] [id number] FOLLOW UP 03/18/2018 Patient Education: Patient Medication [...] ICD-10 : L03.115 03/15/2018 Appointment: Kathleen Zuniga [address] [place], [place] [id number] ACUTE ILLNESS 03/15/2018 Patient Education: Patient Medication [...] ICD-10 : J01.90 02/11/2018 Appointment: Kathleen Zuniga [address] [place], [place] [id number] ACUTE ILLNESS 02/11/2018 Patient Education: Patient Medication Summary Completed 02/11/2018 Appointment: María Elena Appiah WPtel: [phone] [id number] INJECTION 02/01/2018 Patient Education: Patient Medication Summary [...] ICD-10 : M51.16 01/30/2018 Appointment: Kathleen Zuniga [address] [place] [address] ACUTE ILLNESS 01/30/2018 Patient Education: Patient Medication [...] 12/18/2017 Appointment: María Elena Appiah WPtel: [phone] [facility] Annual Well Visit 12/18/2017 Patient Education: Patient Medication Summary Completed 12/18/2017 Care Plan: Referral Order SNOMED-CT : [id number] Pending 12/18/2017 Appointment: María Elena Appiah WPtel: [phone] [facility] [place] INJECTION 12/10/2017 Patient Education: Patient Medication [...] ICD-10 : L03.031 12/07/2017 Appointment: Kathleen Zuniga [address] [place] [address] ACUTE ILLNESS 12/07/2017 Patient Education: Patient Medication [...] ICD-10 : J01.00 10/08/2017 Appointment: Kathleen Zuniga [address] [place] [address] ACUTE ILLNESS 10/08/2017 Patient Education: Patient Medication Summary Completed 10/08/2017 Appointment: María Elena Appiah WPtel: [phone] [facility] [place] INJECTION 09/21/2017 Patient Education: Patient Medication [...] : R06.83 09/20/2017 Appointment: Kathleen Zuniga [address] [place] [address] ACUTE ILLNESS 09/20/2017 Patient Education: Patient Medication [...] ICD-10 : L60.0 08/29/2017 Appointment: Kathleen Zuniga [address] [place] [address] OFFICE SURGERY 08/29/2017 Patient Education: Patient Medication Summary Completed 08/29/2017 Visit Diagnosis Plan: Actinic keratosis Discussion: Cr yotherapy as above ICD-9 : 702.0 ICD-10 : L57.0 08/01/2017 Appointment: María Elena Appiah WPtel: [address] [place] [address] OFFICE SURGERY 08/01/2017 Patient Education: Patient Medication Summary Completed 08/01/2017 Appointment: María Elena Appiah WPtel: [address] [place] [address] PATIENT THOUGHT APPOINTMENT WAS TOMORROW 07/26/17 CALLED 15 MINUTES BEFORE APPT TO SAY SHE DIDN'T HAVE ANYONE TO COVER HER BUSINESS AND WOULD NOT MAKE IT NO SHOW 07/25/2017 Visit Diagnosis Plan: Cellulitis of left toe Discussio n: Clindamycin and notify if worsening or persistis ICD-9 : 681.10 ICD-10 : L03.032 07/19/2017 Appointment: María Elena Appiah WPtel: [address] [place] [address] MEDICATION REVIEW 07/19/2017 Patient Education: Patient Medication Summary Completed 07/19/2017 Appointment: María Elena Appiah WPtel: [address] [place] [address] CANCELED 07/04/2017 Visit Diagnosis Plan: Generalized hyperhidrosis Discus ian: CBC, CMP, TSH, free T4 ordered to assess. will review labs. ICD-9 : 780.8 ICD-10 : R61 06/27/2017 Visit Diagnosis Plan: Chronic sinusitis, unspecified D iscussion: Referral sent to dr. albarado in [place] per patient request. patient has been treated multiple times for sinus infections with no recovery. patient was seen by dr sanchez in the past with no interventions. patient has deviated septum which may be affecting her sinuses. 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, including hip Discussion: Shave removal of above lesio n--sent to pathology ICD-9 : 216.7 ICD-10 : D23.72 01/24/2017 Appointment: María Elena Appiah WPtel: [address] [place], [place] [phone] 01/23 confirmed ~sl OFFICE SURGERY 01/24/2017 Patient Education: Patient Medication Summary Completed 01/24/2017 Appointment: Loan Sánchez [address] [place] [address] 01/09 rescheduled~sl RESCHEDULED 01/15/2017 Visit Diagnosis Plan: [...] 12/13/2016 Appointment: María Elena Appiah [facility]Ptel: [phone] [facility] [place] 12/12 confirmed ~ MEDICATION REVIEW 12/13/2016 Patient Education: Patient Medication Summary Completed 12/13/2016 Appointment: María Elena Appiah WPtel: [address] [place], [place] [id number] [place] rescheduled for 12/13/16 at 11am RESCHEDULED 0 12/06/2016 Appointment: María Elena Appiah WPtel: [phone] [facility] [place] CANCELED 11/23/2016 Patient Education: [...] 11/01/2016 Appointment: María Elena Appiah WPtel: [phone] [facility] [place] 10/31 lm `sl 11/01 lm`sl MEDICATION REVIEW 017 Patient Education: Patient Medication Summary Completed 11/01/2016 Referral: Canelo Overton WPtel: [phone] [id number] Referral Initiated 10/30/2016 Visit Diagnosis Plan: Encounter [...] Z01.419 10/17/2016 Appointment: María Elena Appiah WPtel: [address] [place], [place] [phone] 10/16 confirmed ~sl PAP 10/17/2016 Patient Education: Patient Medication Summary Completed 10/17/2016 Care Plan: MAMMOGRAM SCREENING LOINC : 2 6347-5 Pending 10/17/2016 Visit Diagnosis Plan: Other seasonal allergic rhinitis Discussion: Decadron/Garamycin Nasal Crapo Mix Too soon for steroid Retry zyrtec 10mg daily ICD-9 : 477.9 ICD-10 : J30.2 10/10/2016 Appointment: María Elena Appiah WPtel: [address] [place], [place] [phone] [place] FOLLOW UP 10/10/2016 Patient Education: Patient Medication Summary Completed 10/10/2016 Appointment: María Elena Appiah WPtel: [address] [place], [place] [phone] 10/02 reschedule `sl RESCHEDULED 10/02/2016 Visit Plan: See surgery for removal of n ew left arm lesion and right foot lesion Lyrica to use next month for left arm paresthesias Continue current meds Discussed sunscreen/sunblock combo 09/19/2016 Appointment: María Elena Appiah WPtel: [address] [place], [place] [phone] 09/18 confirmed ~sl FOLLOW UP 09/19/2016 Patient Education: Patient Medication Summary Completed 09/19/2016 Patient Education: Patient Medication Summary Completed 09/18/2016 Care Plan: MAMMOGRAM BOTH BREASTS LOINC : 70846-5 Pending 09/18/2016 Visit Plan: Discussed that needs [...] 08/24/2016 Appointment: María Elena Appiah WPtel: [address] [place] [address] ACUTE ILLNESS 08/24/2016 Patient Education: Patient Medication Summary Completed 08/24/2016 Patient Education: Patient Medication Summary Completed 08/23/2016 Care Plan: MAMMOGRAM SCREENING LOINC : 2 6347-5 Pending 08/23/2016 Visit Plan: Finish doxycycline Add Breo 100/25 1 p BID for 2 weeks If not improving within next 2 days will get CXR 08/16/2016 Appointment: María Elena Appiah WPtel: [address] [place] [address] ACUTE ILLNESS 08/16/2016 Patient Education: Patient Medication Summary Completed 08/16/2016 Visit Plan: Supportive care. Rest, Fluid s, Tylenol/Motrin prn fever or bodyaches. Notify if worsening symptoms. Doxycyline and Prednisone 08/10/2016 Appointment: María Elena Appiah WPtel: [address] [place] [address] 08/09 lm`sl....confirmed-sp FOLLOW UP 09/2015 Patient Education: Patient Medication Summary Completed 08/10/2016 Visit Plan: Saline nasal flushes prn. Ty lenol/Motrin prn headache. Notify if persists/symptoms worsening. Dexamethasone 8mg IM today May use coricedan and mucinex 08/02/2016 Appointment: María Elena Appiah WPtel: [address] [place] [address] ACUTE ILLNESS 08/02/2016 Patient Education: Patient Medication Summary Completed 08/02/2016 Visit Plan: Cryotherapy as above and lef t forearm lesion removal as above with 5-0 punch biopsy and sent to path Return in 10 days for suture removal 08/01/2016 Appointment: María Elena Appiah WPtel: [address] [place], [place] [phone] 07/31 confirmed`~sl OFFICE SURGERY 08/01/2016 Patient Education: Patient Medication Summary Completed 08/01/2016 Visit Plan: Stop clindamycin Check CBC, CMP, ESR now/STAT 07/27/2016 Appointment: María Elena Appiah WPtel: [address] [place], [place] [id number] ACUTE ILLNESS 07/27/2016 Patient Education: Patient Medication Summary Completed 07/27/2016 Visit Plan: Update lab and check ABIs to start with Will likely need cardiology evaluation to rule out PVD Clindamycin for 10 days Daily yogurt or probiotic Will return for removal of left arm lesions 07/20/2016 Appointment: María Elena Appiah WPtel: [address] [place], [place] [phone] ACUTE ILLNESS 07/20/2016 Patient Education: Patient Medication Summary Completed 07/20/2016 Patient Education: Patient Medication Summary Completed 07/20/2016 Care Plan: MAMMOGRAM BOTH BREASTS LOINC : 82033-5 Pending 07/20/2016 Care Plan: US EXAM CHEST LOINC : 60728-9 Pending 07/20/2016 Visit Plan: Wound culture collected from left great toe Appearance is somewhat staph like Rx as above Wound cleanser and skin care reviewed May need to add oral antibiotic if sores do not heal or continue to reoccur 07/06/2016 Appointment: Loan Sánchez [address] [place], [place] [phone] ACUTE ILLNESS 07/06/2016 Patient Education: Patient Medication Summary Completed 07/06/2016 Appointment: María Elena Appiah WPtel: [address] [place], [place] [phone] [place] INJECTION 05/25/2016 Patient Education: Patient Medication Summary Completed 05/25/2016 Visit Plan: Saline nasal flushes prn. Ty lenol/Motrin prn headache. Notify if persists/symptoms worsening. Dexamethasone and Rocephin given 04/26/2016 Appointment: María Elena Appiah WPtel: [address] [place] [address] ACUTE ILLNESS 04/26/2016 Patient Education: Patient Medication Summary Completed 04/26/2016 Visit Plan: Check CBC, CMP, TSH, FreeT4, HbA1C, estradiol, lipids in AM 03/02/2016 Appointment: María Elena Appiah WPtel: [address] [place] [address] 03/01 lm~sl ACUTE ILLNESS 03/02/2016 Patient Education: Patient Medication Summary Completed 03/02/2016 Visit Plan: Exam is nearly normal Needs to be taking daily antihistamine Would prefer to use oral steroids instead of shot but patient insist that oral steroids cause horrible headaches for her Will given kenalog IM instead 02/09/2016 Appointment: Loan Sánchez [address] [place] [address] ACUTE ILLNESS 02/09/2016 Patient Education: Patient Medication Summary Completed 02/09/2016 Visit Plan: Culture urine Macrobid DC xa nax Trial of Ativan 1mg q HS 01/24/2016 Appointment: María Elena Appiah WPtel: [address] [place] [address] ACUTE ILLNESS 01/24/2016 Patient Education: Patient Medication Summary Completed 01/24/2016 Visit Plan: No steroid or rocephin injec tion warranted Can have oral prednisone Continue current home regimen Needs to follow up with Dr Sanchez if problems persist 12/23/2015 Appointment: Loan Sánchez [address] [place] [address] ACUTE ILLNESS 12/23/2015 Patient Education: Patient Medication Summary Completed 12/23/2015 Visit Plan: Saline nasal flushes prn. Ty lenol/Motrin prn headache. Notify if persists/symptoms worsening. Kenalog 40mg IM today 12/08/2015 Appointment: María Elena Appiah WPtel: [address] [place] [address] 12/06 confirmed~sl ACUTE ILLNESS 12/08/2015 Patient Education: Patient Medication Summary Completed 12/08/2015 Appointment: María Elena Appiah WPtel: [address] [place], [place] [phone] ACUTE ILLNESS 11/18/2015 Patient Education: Patient Medication Summary Completed 10/11/2015 Appointment: María Elena Appiah WPtel: [address] [place], [place] [phone] [place] INJECTION 10/07/2015 Patient Education: Patient Medication Summary Completed 10/07/2015 Visit Plan: Check renal arterial doppler s and ECHO Change amlodopine to lotrel 5/20mg q HS Will need stress test as well Check CMP, uric acid, ESR 10/06/2015 Appointment: María Elena Appiah WPtel: [address] [place] [address] ACUTE ILLNESS 10/06/2015 Patient Education: Patient Medication Summary Completed 10/06/2015 Patient Education: [facility] - [employer]aving [employer] - Amlodipine Besylate - 18-64 - Dynamic Portal ID Completed 10/06/2015 Appointment: María Elena Appiah WPtel: [address] [place] [address] FOLLOW UP 09/22/2015 Visit Plan: Cephalexin 500 mg PO bid Mery ly topical Mupirocin to lesions on left lateral neck and face Follow-up in one week. Sooner if symptoms worsen 09/14/2015 Appointment: June Flores WPtel: [address] [place], [place] [phone] ACUTE ILLNESS 09/14/2015 Patient Education: Patient Medication Summary Completed 09/14/2015 Visit Plan: Change bystolic to bedtime d osing and amlodopine to morning dosing Cryotherapy as above to AKs 09/07/2015 Appointment: María Elena Appiah WPtel: [address] [place], [place] [phone] 09/06 appointment made and confirmed ~sl FOLLOW UP 09/07/2015 Patient Education: Patient Medication Summary Completed 09/07/2015 Visit Plan: Increase bystolic back to 20 mg daily but will split and take 10mg in AM and 10mg in PM Stress Reducers 08/18/2015 Appointment: María Elena Appiahtel: [address] [place] [address] 08/17/15 appt confirmed cn ACUTE ILLNESS 08/18 Patient Education: Patient Medication Summary Completed 08/18/2015 Appointment: María Elena Appiah WPtel: [address] [place] [address] BP CHECK 07/07/2015 Patient Education: Patient Medication Summary Completed 07/07/2015 Appointment: María Elena Appiah WPtel: [address] [place] [address] BP CHECK 06/24/2015 Patient Education: Patient Medication Summary Completed 06/24/2015 Appointment: María Elena Appiah WPtel: [address] [place] [address] BP CHECK 06/21/2015 Patient Education: Patient Medication Summary Completed 06/21/2015 Visit Plan: Lab discussed Continue suhail nt meds and lifestyle modification Recheck lab in 6mos 06/16/2015 Appointment: María Elena Appiah WPtel: [address] [place] [address] 06/15 confirmed FOLLOW UP 06/16/2015 Patient Education: Patient Medication Summary Completed 06/16/2015 Patient Education: Patient Medication Summary Completed 06/15/2015 Visit Plan: Increase cymbalta to 60mg q HS Keep clonidine at current dose Recheck 2weeks Change xanax to klonopin 06/02/2015 Appointment: María Elena Appiah WPtel: [address] [place] [address] 06/02 lm FOLLOW UP 06/02/2015 Patient Education: Patient Medication Summary Completed 06/02/2015 Appointment: María Elena Appiah WPtel: [address] [place] [address] ACUTE ILLNESS 05/24/2015 Visit Plan: Increase clonidine to 0.2mg q HS Add cymbalta 30mg q HS Recheck 2weeks Stress Reducers Check fasting lab Discussed sleep study 05/20/2015 Appointment: María Elena Appiah WPtel: [address] [place] [address] ACUTE ILLNESS 05/20/2015 Patient Education: Patient Medication Summary Completed 05/20/2015 Patient Education: [facility] - [employer] - Cymbalta - 18-64 - Dynamic Portal ID Completed 05/20/2015 Appointment: María Elena Appiah WPtel: [address] [place] [address] BP CHECK 05/19/2015 Patient Education: Patient Medication Summary Completed 05/19/2015 Visit Plan: Topical Bactroban alternatin g with topical betamethasone Recheck 2weeks 05/10/2015 Appointment: María Elena Appiah WPtel: [address] [place] [address] 05/07 vm cn...05/07 appt confirmed OFFICE SURGER Y 05/10/2015 Patient Education: Patient Medication Summary Completed 05/10/2015 Referral: Patrick Chandler WPtel: [address] Referral Initiated 05/04/2015 Visit Plan: Saline nasal flushes prn. Ty lenol/Motrin prn headache. Notify if persists/symptoms worsening. Depomedrol 40mg IM today 03/16/2015 Appointment: María Elena Appiah WPtel: [address] [place] [address] ACUTE ILLNESS 03/16/2015 Patient Education: Patient Medication Summary Completed 03/16/2015 Appointment: María Elena Appiah WPtel: [address] [place] [address] ER Follow UP 03/09/2015 Visit Plan: Cryotherapy to lesions as ab ove 10/27/2014 Appointment: María Elena Appiah WPtel: [address] [place] [address] OFFICE SURGERY 10/27/2014 Patient Education: Patient Medication Summary Completed 10/27/2014 Appointment: June Flores WPtel: [address] [place] [address] ACUTE ILLNESS 09/11/2014 Patient Education: Patient Medication Summary Completed 09/11/2014 Visit Plan: Lab discussed Lipitor 10mg d aily Coenzyme Q-10 400mg daily Vitamin D3 5000u daily Recheck lipids with LFTs in 3mos then fwup 08/31/2014 Appointment: María Elena Appiah WPtel: [address] [place] [address] 08/28 voiceohil FOLLOW UP 08/31/2014 Patient Education: Patient Medication Summary Completed 08/31/2014 Appointment: María Elena Appiah WPtel: [address] [place] [address] [place] LAB 08/27/2014 Appointment: María Elena Appiah WPtel: [address] [place] [address] US LAB 08/27/2014 Patient Education: Patient Medication Summary Completed 08/27/2014 Appointment: María Elena Appiah WPtel: [address] [place] [address] ACUTE ILLNESS 07/23/2014 Appointment: María Elena Appiah WPtel: [address] [place] [address] ACUTE ILLNESS 07/21/2014 Patient Education: Patient Medication Summary Completed 07/21/2014 Visit Plan: Kenalog 40mg IM today Contin ue narendra and singulair Add Flonase 07/15/2014 Appointment: María Elena Appiah WPtel: [address] [place] [address] ACUTE ILLNESS 07/15/2014 Appointment: María Elena Appiahtejaylin: [address] [place], [place] [phone] ACUTE ILLNESS 07/15/2014 Patient Education: Patient Medication Summary Completed 07/15/2014 Visit Plan: Will do metolazone 2.5mg prn with 6 potassium and see if causes as severe cramping Trial of of seroquel XR 50mg q PM with evening meal and let us know how works 05/18/2014 Appointment: María Elena Appiah WPtel: [address] [place], [place] [phone] 05/15 left message FOLLOW UP 05/18/2014 Patient Education: Patient Medication Summary Completed 05/18/2014 Appointment: María Elena Appiah WPtel: [address] [place], [place] [phone] LAB 05/14/2014 Patient Education: Patient Medication Summary Completed 05/14/2014 Appointment: María Elena Appiah WPtel: [address] [place], [place] [phone] [place] INJECTION 04/22/2014 Visit Plan: Rocephin and Kenluis f today a nd finish abx given from urgent care 04/21/2014 Appointment: María Elena Appiah WPtel: [address] [place], [place] [phone] [place] INJECTION 04/21/2014 Patient Education: Patient Medication Summary Completed 04/21/2014 Appointment: June Flores WPtel: [address] [place], [place] [phone] ACUTE ILLNESS 03/04/2014 Patient Education: Patient Medication Summary Completed 03/04/2014 Appointment: María Elena Appiah WPtel: [address] [place], [place] [phone] [place] INJECTION 02/27/2014 Patient Education: Patient Medication Summary Completed 02/27/2014 Visit Plan: Cryotherapy as above to all lesions Patient wants to try no meds for insomnia for a while and see how goes 01/13/2014 Appointment: María Elena Appiah WPtel: [address] [place] [address] OFFICE SURGERY 01/13/2014 Patient Education: Patient Medication Summary Completed 01/13/2014 Visit Plan: Stop Melatonin Stop Soma Tri al of trazadone 75mg q HS See ENT for possible tubes as has had chronic ETD and serous otitis media with numerous steroids 12/24/2013 Appointment: María Elena Appiah WPtel: [address] [place] [address] ACUTE ILLNESS 12/24/2013 Patient Education: Patient Medication Summary Completed 12/24/2013 Visit Plan: Saline nasal flushes prn. Ty lenol/Motrin prn headache. Notify if persists/symptoms worsening. 11/12/2013 Appointment: María Elena Appiah WPtel: [address] [place] [address] ACUTE ILLNESS 11/12/2013 Patient Education: Patient Medication Summary Completed 11/12/2013 Appointment: María Elena Appiah WPtel: [address] [place] [address] ACUTE ILLNESS 10/21/2013 Patient Education: Patient Medication Summary Completed 10/21/2013 Visit Plan: Sleep hygiene and sleep rout ine Melatonin 10mg q HS Support stockings and observe 09/22/2013 Appointment: María Elena Appiah WPtel: [address] [place] [address] ACUTE ILLNESS 09/22/2013 Patient Education: Patient Medication Summary Completed 09/22/2013 Appointment: June Flores WPtel: [address] [place] [address] ACUTE ILLNESS 08/27/2013 Patient Education: Patient Medication Summary Completed 08/27/2013 Visit Plan: Proceed with CT scan of head /neck Proceed with occipital nerve injections Butrans 20mcg patch weekly until can get into see Dr. Mcdonough for injections 08/04/2013 Appointment: María Elena Appiah WPtel: [address] [place] [address] [place] FOLLOW UP 08/04/2013 Patient Education: Patient Medication Summary Completed 08/04/2013 Visit Plan: OMT done Daily neck stretche s, moist heat Increase Celebrex to 200mg BID Add flexeril 07/23/2013 Appointment: María Elena Appiah WPtel: [address] [place] [address] 07/22 voicemail FOLLOW UP 07/23/2013 Patient Education: Patient Medication Summary Completed 07/23/2013 Appointment: María Elena Appiah WPtel: [address] [place] [address] ACUTE ILLNESS 06/23/2013 Patient Education: Patient Medication Summary Completed 06/23/2013 Appointment: María Elena Appiah WPtel: [address] [place] [address] ACUTE ILLNESS 05/26/2013 Patient Education: Patient Medication Summary Completed 05/26/2013 Visit Plan: Decrease clonidine to 0.1mg TID If BP remains stable consider decreasing amlodopine Prednisone for 5 days BP check in 1mo 04/16/2013 Appointment: María Elena Appiah WPtel: [address] [place] [address] 04/14 pt called and confirmed appt FOLLOW UP 04/16/2013 Patient Education: Patient Medication Summary Completed 04/16/2013 Appointment: María Elena Appiah WPtel: [address] [place] [address] ACUTE ILLNESS 03/05/2013 Patient Education: Patient Medication Summary Completed 03/05/2013 Visit Plan: Pt has MARIA ELENA on with Dr. Sharonda Matthews patch Refill Hydrocodone early tomorrow 12/23/2012 Appointment: María Elena Appiah WPtel: [address] [place] [address] FOLLOW UP 12/23/2012 Patient Education: Patient Medication Summary Completed 12/23/2012 Appointment: Lashawn Eckert WPtel: [address] [place] [address] ACUTE ILLNESS 12/16/2012 Patient Education: Patient Medication Summary Completed 12/16/2012 Visit Plan: Proceed with updated MRI of LS spine Continue gabapentin and add soma and diclofenac Will likely need to go for another epidural 12/09/2012 Appointment: María Elena Appiah WPtel: [address] [place] [address] ACUTE ILLNESS 12/09/2012 Patient Education: Patient Medication Summary Completed 12/09/2012 Visit Plan: Injection as above Finish me drol dose pack Chiropracter this afternoon 12/04/2012 Appointment: María Elena Appiah WPtel: [address] [place] [address] ACUTE ILLNESS 12/04/2012 Patient Education: Patient Medication Summary Completed 12/04/2012 Appointment: Mary Tillman WPtel: [address] [place] [address] FOLLOW UP 11/22/2012 Patient Education: Patient Medication Summary Completed 11/22/2012 Appointment: María Elena Appiah WPtel: [address] [place] [address] ACUTE ILLNESS 11/21/2012 Patient Education: Patient Medication Summary Completed 11/21/2012 Appointment: María Elena Appiah WPtel: [address] [place] [address] BP CHECK 11/07/2012 Patient Education: Patient Medication [...] re-check. 10/29/2012 Appointment: Lashawn Eckert WPtel: [address] [place] [address] ACUTE ILLNESS 10/29/2012 Patient Education: Patient Medication Summary Completed 10/29/2012 Appointment: Maíra Elena Appiah WPtel: [address] [place] [address] ACUTE ILLNESS 10/14/2012 Patient Education: Patient Medication Summary Completed 10/14/2012 Appointment: María Elena Appiah WPtel: [address] [place] [address] UA 09/27/2012 Patient Education: Patient Medication Summary Completed 09/27/2012 Appointment: María Elena Appiah WPtel: [address] [place] [address] ACUTE ILLNESS 09/25/2012 Patient Education: Patient Medication Summary Completed 09/25/2012 Appointment: María Elena Appiah WPtel: [address] [place] [address] BP CHECK 09/24/2012 Appointment: María Elena Appiah WPtel: [address] [place] [address] ACUTE ILLNESS 08/29/2012 Patient Education: Patient Medication Summary Completed 08/29/2012 Visit Plan: Cryotherapy as above See Karlos m for right ear lesion--probable MOHs procedure Increase amlodopine to 10mg daily 08/12/2012 Appointment: María Elena Appiah WPtel: [address] [place] [address] OFFICE SURGERY 08/12/2012 Patient Education: Patient Medication Summary Completed 08/12/2012 Appointment: María Elena Appiah WPtel: [address] [place] [address] 05/03 vm on pt phone...pt called on 04/11 3 pt called wanting in had no one cancel so could not get her in for an appt sooner than 05/06. ACUTE ILLNESS 05/06/2012 Patient Education: Patient Medication Summary Completed 05/06/2012 Visit Plan: Pt wants to hold on any furt her sleep medications 04/03/2012 Appointment: María Elena Appiah WPtel: [address] [place] [address] FOLLOW UP 04/03/2012 Patient Education: Patient Medication Summary Completed 04/03/2012 Appointment: María Elena Appiah WPtel: [address] [place] [address] FOLLOW UP 03/19/2012 Patient Education: Patient Medication Summary Completed 03/19/2012 Appointment: María Elena Appiah WPtel: [address] [place] [address] BP CHECK 02/22/2012 Patient Education: Patient Medication Summary Completed 02/22/2012 Appointment: María Elena Appiah WPtel: [address] [place] [address] BP CHECK 02/21/2012 Patient Education: Patient Medication Summary Completed 02/21/2012 Visit Plan: Doxycycline and bactroban fo r foot Supportive care on ankles and knees Add norvasc for BP 02/20/2012 Appointment: María Elena Appiah WPtel: [address] [place] [address] ER Follow UP 02/20/2012 Patient Education: Patient Medication Summary Completed 02/20/2012 Appointment: María Elena Appiah WPtel: [address] [place] [address] ACUTE ILLNESS 01/30/2012 Patient Education: Patient Medication Summary Completed 01/30/2012 Appointment: María Elena Appiah WPtel: [address] [place] [address] ACUTE ILLNESS 01/24/2012 Patient Education: Patient Medication Summary Completed 01/24/2012 Visit Plan: Daily back stretches, moist heat, Biofreeze prn OMT done 01/10/2012 Appointment: Marí aElena Appiah WPtel: [address] [place] [address] ACUTE ILLNESS 01/10/2012 Patient Education: Patient Medication Summary Completed 01/10/2012 Appointment: María Elena Appiahtel: [address] [place] [address] FOLLOW UP 12/11/2011 Patient Education: Patient Medication Summary Completed 12/11/2011 Appointment: María Elena Appiahtel: [address] [place] [address] ACUTE ILLNESS 11/09/2011 Patient Education: Patient Medication Summary Completed 11/09/2011 Appointment: María Elena Appiahtel: [address] [place] [address] ACUTE ILLNESS 09/13/2011 Patient Education: Patient Medication Summary Completed 09/13/2011 Visit Plan: Check CBC, TSH, Free T4, CMP , ESR, Vit D, B12 now Start Prednisone today 08/31/2011 Appointment: María Elena Appiahtel: [address] [place] [address] ACUTE ILLNESS 08/31/2011 Patient Education: Patient Medication Summary Completed 08/31/2011 Appointment: María Elena Appiahtel: [address] [place] [address] [place] INJECTION 07/20/2011 Patient Education: Patient Medication Summary Completed 07/20/2011 Visit Plan: Continue current meds Monite r BP Cont stretches from PT 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 07/06/2011 Appointment: María Elena Appiahtel: [address] [place] [address] FOLLOW UP 07/06/2011 Patient Education: Patient Medication Summary Completed 07/06/2011 Appointment: María Elena Appiahtel: [address] [place] [address] BP CHECK 06/06/2011 Patient Education: Patient Medication Summary Completed 06/06/2011 Visit Plan: Add Bystolic at 2.5mg QAM Ad d Robaxin 750mg 2 po q HS BP check in 2wks 05/22/2011 Appointment: María Elena Appiah WPtel: [address] [place], [place] [phone] FOLLOW UP 05/22/2011 Patient Education: Patient Medication Summary Completed 05/22/2011 Appointment: María Elena Appiah WPtel: [address] [place], [place] [phone] ER Follow UP 05/09/2011 Patient Education: Patient Medication Summary Completed 05/09/2011 Appointment: María Elena Appiah WPtel: [address] [place], [place] [phone] FOLLOW UP 02/22/2011 Visit Plan: Rx written for Hydrocodone 1 0/325mg #240 See Ortho 02/14/2011 Appointment: María Elena Appiah WPtel: [address] [place], [place] [phone] OMT 02/14/2011 Patient Education: Patient Medication [...] work. 02/03/2011 Appointment: Lashawn Eckert WPtel: [address] [place], [place] [phone] ACUTE ILLNESS 02/03/2011 Patient Education: Patient Medication Summary Completed 02/03/2011 Visit Plan: OMT done Cont daily stretche s 01/31/2011 Appointment: María Elena Appiah WPtel: [address] [place] [address] ACUTE ILLNESS 01/31/2011 Patient Education: Patient Medication Summary Completed 01/31/2011 Visit Plan: Continue pain meds OMT done Proceed with PT No work this summer01/25/2011 Appointment: María Elena Appiah WPtel: [address] [place] [address] ACUTE ILLNESS 01/25/2011 Patient Education: Patient Medication Summary Completed 01/25/2011 Visit Plan: Start PT Long discussion abo ut getting pain meds from only us and can only have max of 4grams of tylenol per day Change to Hydrocodone 10/325mg 1- 2 po TID prn pain--#180 called to Radha 01/18/2011 Appointment: María Elena Appiah WPtel: [address] [place] [address] FOLLOW UP 01/18/2011 Patient Education: Patient Medication Summary Completed 01/18/2011 Visit Plan: Daily back stretches, moist heat, Biofreeze prn 11/29/2010 Appointment: María Elena Appiah WPtel: [address] [place] [address] ER Follow UP 11/29/2010 Patient Education: Patient Medication Summary Completed 11/29/2010 Visit Plan: Saline nasal flushes prn. Ty lenol/Motrin prn headache. Notify if persists/symptoms worsening. Finish augmentin Add Medrol Dose Pack 10/10/2010 Appointment: María Elena Appiah WPtel: [address] [place] [address] ACUTE ILLNESS 10/10/2010 Patient Education: Patient Medication Summary Completed 10/10/2010 Visit Plan: Cryotherapy x3 to multiple l esions on both forearms 07/19/2010 Appointment: María Elena Appiah WPtel: [address] [place] [address] OFFICE SURGERY 07/19/2010 Patient Education: Patient Medication Summary Completed 07/19/2010 Appointment: María Elena Appiah WPtel: [address] [place] [address] BP CHECK 07/06/2010 Patient Education: Patient Medication Summary Completed 07/06/2010 Appointment: María Elena Appiah WPtel: [address] [place] [address] US BP CHECK 06/30/2010 Patient Education: Patient Medication Summary Completed 06/30/2010 Appointment: María Elena Appiah WPtel: [address] [place] [address] BP CHECK 06/20/2010 Patient Education: Patient Medication Summary Completed 06/20/2010 Visit Plan: Change Diovan to Exforge 160 /5mg QD OMT done to thoracics BP check in 2wks 06/07/2010 Appointment: María Elena Appiah WPtel: [address] [place] [address] FOLLOW UP 06/07/2010 Patient Education: Patient Medication Summary Completed 06/07/2010 Appointment: María Elena Appiah WPtel: [address] [place] [address] BP CHECK 06/03/2010 Patient Education: Patient Medication Summary Completed 06/03/2010 Appointment: María Elena Appiah WPtel: [address] [place] [address] BP CHECK 06/01/2010 Patient Education: Patient Medication Summary Completed 06/01/2010 Visit Plan: Irritated skin tags to left neck x2 excised at base with scissors and base cauterized 05/30/2010 Appointment: María Elena Appiah WPtel: [address] [place] [address] OFFICE SURGERY 05/30/2010 Patient Education: Patient Medication Summary Completed 05/30/2010 Visit Plan: Saline nasal flushes prn. Ty lenol/Motrin prn headache. Notify if persists/symptoms worsening. Restart Nasonex Has allergy testing set for May 25 04/27/2010 Appointment: María Elena Appiah WPtel: [address] [place] [address] ACUTE ILLNESS 04/27/2010 Patient Education: Patient Medication Summary Completed 04/27/2010 Visit Plan: Saline nasal flushes prn. Ty lenol/Motrin prn headache. Notify if persists/symptoms worsening. Omnaris BID plus injections 04/05/2010 Appointment: María Elena Appiah WPtel: [address] [place] [address] ACUTE ILLNESS 04/05/2010 Patient Education: Patient Medication Summary Completed 04/05/2010 Visit Plan: Saline nasal flushes prn. Ty lenol/Motrin prn headache. Notify if persists/symptoms worsening. 03/09/2010 Appointment: María Elena Appiah WPtel: [address] [place] [address] ACUTE ILLNESS 03/09/2010 Patient Education: Patient Medication Summary Completed 03/09/2010 Visit Plan: Cont Clonidine as is Cont Pr emarin Fwup with surgery as scheduled 03/03/2010 Appointment: María Elena Appiah WPtel: [address] [place] [address] FOLLOW UP 03/03/2010 Patient Education: Patient Medication Summary Completed 03/03/2010 Visit Plan: Check Pelvic US now Dukee tacho Sal C vs Hysterectomy 01/17/2010 Appointment: María Elena Appiah WPtel: [address] [place] [address] ACUTE ILLNESS 01/17/2010 Patient Education: Patient Medication Summary Completed 01/17/2010 Visit Plan: Check fasting lab and schedu le Mammogram 2gm Na Diet Trial of Ambien 10mg qhs Fwup pending lab results 12/27/2009 Appointment: María Elena Appiah WPtel: [address] [place] [address] ESTABLISHED PATIENT 12/27/2009 Patient Education: Patient Medication Summary Completed 12/27/2009 Referral: Canelo Overton WPtel: [address] [id number] [place] Referral Initiated Referral: Philipp Flores WPtel: [address] [id number] [place] Referral Appointment Requested Instructions Comment . [...]
--- OUTSIDE RECORDS SUMMARY | 2020-03-13 06:32 | XMS REPORT | CCD ---
Author Author Gale Appiah D.O. Organization [facility] Address [address] [place] [phone] Phone Care Team Providers Care Online Producer Name Role Phone María Elena Appiah D.O., PP Unavailable CCM Unavailable Summary Purpose Interface Exchange Insurance Providers Payer name Policy type / Coverage type Covered alliance party ID Effective Begin Date Effective End Date [facility] Commercial Insurance [id number] Unknown Family History Family History data not found Social History Social History Element Codes Description Effective Dates Tobacco history SNOMED CT: [id number] Never smoker 05/22/2011 Allergies, Adverse Reactions, Alerts [...] Fill Instructions Premarin 1.25 mg tablet RxNorm: 439928 1 Tablet(s) Oral QD 09/30/1906/25/2020 Active hydrocodone 10 mg-acetaminophen 325 mg tablet RxNorm: 204755 1-2 Tablet(s) Oral three times a day as needed for pain 09/30/2019 09/30/2019 Inactive gabapentin 300 mg capsule RxNorm: 142087 TAKE ONE CAPSU LE BY MOUTH EVERY NIGHT AT BEDTIME 09/19/2019 No Stop Date Active baclofen 10 mg tablet RxNorm: 576915 TAKE ONE TABLET BY MOUTH THREE TIMES A DAY NEEDED 09/19/2019 No Stop Date Active Klor-Con 8 mEq tablet,extended release RxNorm: 342811 T FARRUKH ONE TABLET BY MOUTH TWICE A DAY 1 Tablet(s) Oral two times a day 09/19/2019 10/19/2019 Act darion hydrocodone 10 mg-acetaminophen 325 mg tablet RxNorm: 142597 1-2 Tablet(s) Oral three times a day as needed for pain 09/19/2019 09/29/2019 Inactive duloxetine 60 mg capsule,delayed release RxNorm: 560360 TAKE ONE CAPSULE BY MOUTH DAILY 09/11/2019 No Stop Date Active Lipitor 10 mg tablet RxNorm: 255191 TAKE ONE TABLET BY MOUTH AT BEDTIME 09/11/2019 No Stop Date Active lisinopril 20 mg tablet RxNorm: 122646 TAKE ONE TABLET BY MOUTH DAILY .... THIS REPLACE 10MG TABLETS 09/11/2019 No Stop Date Active triamterene 75 mg-hydrochlorothiazide 50 mg tablet RxNorm: 3 26971 TAKE ONE TABLET BY MOUTH DAILY 09/11/2019 No Stop Date Active allopurinol 300 mg tablet RxNorm: 478926 TAKE ONE TABLET BY LOPEZ TH DAILY 09/11/2019 No Stop Date Active celecoxib 200 mg capsule RxNorm: 005135 TAKE ONE CAPSUL E BY MOUTH TWICE A DAY NEEDED FOR PAIN 09/11/2019 No Stop Date Active clonidine HCl 0.1 mg tablet RxNorm: 241830 TAKE ONE TAB LET BY MOUTH FOUR TIMES A DAY 09/11/2019 No Stop Date Active doxepin 25 mg capsule RxNorm: 5431085 1 Capsule(s) Oral every night at bedtime as needed for sleep 08/21/2019 11/18/2019 Active hydrocodone 10 mg-acetaminophen 325 mg tablet RxNorm: 880555 1-2 Tablet(s) PO TID 08/12/2019 09/29/2019 Inactive as needed for pa in - Previous quantity #240, will start dosing for #180 in April 2011 per Doctor Td. Medrol (Dustin) 4 mg tablets in a dose pack RxNorm: 722935 Tablet(s) Oral As Directed 07/21/2019 09/29/2019 Inactive Premarin 1.25 mg tablet RxNorm: 172039 1 Tablet(s) Oral QD 07/02/20 19 09/29/2019 Inactive hydrocodone 10 mg-acetaminophen 325 mg tablet RxNorm: 565873 1-2 Tablet(s) PO TID 07/01/2019 08/11/2019 Inactive as needed for pa in - Previous quantity #240, will start dosing for #180 in April 2011 per Doctor Td. gabapentin 300 mg capsule RxNorm: 079325 1 Capsule(s) PO QHS 201809/18/2019 Inactive celecoxib 200 mg capsule RxNorm: 058327 1 Capsule(s) Or al two times a day as needed for pain 06/27/2019 06/27/2019 Inactive Singulair 10 mg tablet RxNorm: 780013 TAKE ONE TABLET BY MOUTH JOSÉ Y 06/24/2019 No Stop Date Active furosemide 40 mg tablet RxNorm: 417114 TAKE ONE TABLET BY MOUTH EVERY MORNING NEEDED FOR EDEMA . TAKE WITH POTASSIUM 06/24/2019 No Stop Date Active doxepin 25 mg capsule RxNorm: 5941831 TAKE ONE CAPSULE B Y MOUTH EVERY NIGHT AT BEDTIME NEEDED FOR SLEEP 06/24/2019 08/20/2019 Inactive lisinopril 20 mg tablet RxNorm: 099178 TAKE ONE TABLET BY MOUTH DAILY .... THIS REPLACE 10MG TABLETS 06/24/2019 09/10/2019 Inactive nystatin-triamcinolone 100,000 unit/g-0.1 % topical cream Rx Norm: 3972694 1 Application Topical two times a day 06/12/2019 06/19/2019 Inactive apply BID for 1 week nystatin-triamcinolone 100,000 unit/g-0.1 % topical cream Rx Norm: 5982040 1 Application Topical two times a day 06/12/2019 06/11/2019 Inactive apply BID for 1 week hydrocodone 10 mg-acetaminophen 325 mg tablet RxNorm: 347752 1-2 Tablet(s) PO QID as needed for pain MUST LAST 30 DAYS 05/28/2019 06/26/2019 Inactiv e (Response to an electronic controlled substance refill request - RxReferenceNumber: [id number]) baclofen 20 mg tablet RxNorm: 049344 1 Tablet(s) PO TID as needed for muscle spasm 05/19/2019 05/27/2019 Inactive gabapentin 300 mg capsule RxNorm: 558636 1 Capsule(s) PO QHS 201805/27/2019 Inactive lisinopril 20 mg tablet RxNorm: 764076 1 Tablet(s) PO Q D TAKE ONE TABLET BY MOUTH DAILY, REPLACES 10 MG DOSE 05/19/2019 06/23/2019 Inactive doxepin 25 mg capsule RxNorm: 2260760 TAKE ONE CAPSULE B Y MOUTH EVERY NIGHT AT BEDTIME NEEDED FOR SLEEP 05/16/2019 06/14/2019 Inactive lisinopril 20 mg tablet RxNorm: 482816 TAKE ONE TABLET BY MOUTH DAILY, REPLACES 10 MG DOSE 05/16/2019 05/18/2019 Inactive Singulair 10 mg tablet RxNorm: 516789 TAKE ONE TABLET BY MOUTH JOSÉ Y 05/16/2019 06/14/2019 Inactive gabapentin 300 mg capsule RxNorm: 118121 1 Capsule(s) PO QHS 201805/04/2019 Inactive estropipate 1.5 mg tablet RxNorm: 237269 1 Tablet(s) PO QD 05/05/20 19 05/27/2019 Inactive estropipate 1.5 mg tablet RxNorm: 156930 1 Tablet(s) PO QD 05/05/20 19 05/04/2019 Inactive gabapentin 300 mg capsule RxNorm: 751073 1 Capsule(s) PO QHS 201805/18/2019 Inactive hydrocodone 10 mg-acetaminophen 325 mg tablet RxNorm: 952363 1-2 Tablet(s) PO QID as needed for pain MUST LAST 30 DAYS 04/25/2019 05/24/2019 Inactiv e (Response to an electronic controlled substance refill request - RxReferenceNumber: [id number]) metoprolol tartrate 100 mg tablet RxNorm: 427993 TAKE O NE TABLET BY MOUTH TWICE A DAY 04/24/2019 06/22/2019 Inactive cyclobenzaprine 10 mg tablet RxNorm: 904785 TAKE ONE TA BLET BY MOUTH THREE TIMES A DAY NEEDED FOR MUSCLE SPASMS 04/24/2019 05/18/2019 Inactive Lyrica 75 mg capsule RxNorm: 809419 1 Capsule(s) PO QHS 03/25/2019 Inactive duloxetine 60 mg capsule,delayed release RxNorm: 523354 TAKE ONE CAPSULE BY MOUTH DAILY 03/21/2019 05/19/2019 Inactive triamterene 75 mg-hydrochlorothiazide 50 mg tablet RxNorm: 3 50419 TAKE ONE TABLET BY MOUTH DAILY 03/21/2019 05/19/2019 Inactive Klor-Con 8 mEq tablet,extended release RxNorm: 307478 T FARRUKH ONE TABLET BY MOUTH TWICE A DAY 03/21/2019 09/18/2019 Inactive Lipitor 10 mg tablet RxNorm: 124844 TAKE ONE TABLET BY MOUTH AT BEDTIME 03/21/2019 09/10/2019 Inactive clonidine HCl 0.1 mg tablet RxNorm: 474009 TAKE ONE TAB LET BY MOUTH FOUR TIMES A DAY 03/21/2019 05/19/2019 Inactive allopurinol 300 mg tablet RxNorm: 810657 TAKE ONE TABLET BY LOPEZ TH DAILY 03/21/2019 05/19/2019 Inactive hydrocodone 10 mg-acetaminophen 325 mg tablet RxNorm: 037839 1-2 Tablet(s) PO QID as needed for pain MUST LAST 30 DAYS 02/28/2019 03/29/2019 Inactiv e (Response to an electronic controlled substance refill request - [facility] [id number]) furosemide 40 mg tablet RxNorm: 579298 TAKE ONE TABLET BY MOUTH EVERY MORNING NEEDED FOR EDEMA . TAKE WITH POTASSIUM 02/21/2019 03/22/2019 Inactive cyclobenzaprine 10 mg tablet RxNorm: 831132 TAKE ONE TA BLET BY MOUTH THREE TIMES A DAY NEEDED FOR MUSCLE SPASMS 02/21/2019 04/21/2019 Inactive lisinopril 20 mg tablet RxNorm: 591708 TAKE ONE TABLET BY MOUTH DAILY, REPLACES 10 MG DOSE 02/21/2019 05/15/2019 Inactive doxepin 25 mg capsule RxNorm: 3315570 TAKE ONE CAPSULE B Y MOUTH EVERY NIGHT AT BEDTIME NEEDED FOR SLEEP 02/21/2019 05/15/2019 Inactive nystatin 100,000 unit/gram topical cream RxNorm: 412526 APPLY TO AFFECTED AREA(S) TWO TIMES A DAY 02/21/2019 03/22/2019 Inactive estradiol 1 mg tablet RxNorm: 312374 2 Tablet(s) PO QD replaces premarin 01/22/2019 05/04/2019 Inactive lisinopril 20 mg tablet RxNorm: 928256 TAKE ONE TABLET BY MOUTH DAILY, REPLACES 10 MG DOSE 01/20/2019 02/18/2019 Inactive cyclobenzaprine 10 mg tablet RxNorm: 616408 TAKE ONE TA BLET BY MOUTH THREE TIMES A DAY NEEDED FOR MUSCLE SPASMS 01/20/2019 02/18/2019 Inactive metoprolol tartrate 100 mg tablet RxNorm: 435744 TAKE O NE TABLET BY MOUTH TWICE A DAY 01/20/2019 02/18/2019 Inactive cyclobenzaprine 10 mg tablet RxNorm: 354817 TAKE ONE TA BLET BY MOUTH THREE TIMES A DAY NEEDED FOR MUSCLE SPASMS 12/19/2018 01/17/2019 Inactive lisinopril 20 mg tablet RxNorm: 938570 TAKE ONE TABLET BY MOUTH DAILY, REPLACES 10 MG DOSE 12/19/2018 01/17/2019 Inactive duloxetine 60 mg capsule,delayed release RxNorm: 441915 TAKE ONE CAPSULE BY MOUTH DAILY 12/19/2018 01/17/2019 Inactive Lipitor 10 mg tablet RxNorm: 717573 TAKE ONE TABLET BY MOUTH AT BEDTIME 12/19/2018 01/17/2019 Inactive cyclobenzaprine 10 mg tablet RxNorm: 167809 1 Tablet(s) PO TID as needed for muscle spasm 11/19/2018 12/18/2018 Inactive Singulair 10 mg tablet RxNorm: 608644 1 Tablet(s) PO QD 11/19/2018 Inactive lisinopril 20 mg tablet RxNorm: 769813 TAKE ONE TABLET BY MOUTH DAILY, REPLACES 10 MG DOSE 11/15/2018 12/18/2018 Inactive hydrocodone 10 mg-acetaminophen 325 mg tablet RxNorm: 637320 1-2 Tablet(s) PO QID as needed for pain MUST LAST 30 DAYS 11/13/2018 12/12/2018 Inactiv e (Response to an electronic controlled substance refill request - RxReferenceNumber: [id number]) nystatin 100,000 unit/gram topical cream RxNorm: 607817 APPLY TO AFFECTED AREA(S) TWO TIMES A DAY 10/23/2018 11/06/2018 Inactive lisinopril 20 mg tablet RxNorm: 435191 1 Tablet(s) PO QD replac es 10mg dose 10/18/2018 11/14/2018 Inactive hydrocodone 10 mg-acetaminophen 325 mg tablet RxNorm: 957273 1-2 Tablet(s) QID as needed for pain MUST LAST 30 DAYS 10/08/2018 11/06/2018 Inactive (Response to an electronic controlled substance refill request - RxReferenceNumber: [id number]) lisinopril 10 mg tablet RxNorm: 371399 1 Tablet(s) PO QD 10/03/2018 0 01/21/2019 Inactive Celebrex 200 mg capsule RxNorm: 280091 TAKE ONE CAPSULE BY MOUT H TWICE A DAY 09/30/2018 05/04/2019 Inactive cyclobenzaprine 10 mg tablet RxNorm: 370455 TAKE ONE TA BLET BY MOUTH THREE TIMES A DAY NEEDED FOR MUSCLE SPASMS 09/30/2018 11/18/2018 Inactive doxepin 25 mg capsule RxNorm: 6357743 TAKE ONE CAPSULE B Y MOUTH EVERY NIGHT AT BEDTIME NEEDED 09/05/2018 10/16/2018 Inactive omeprazole 40 mg capsule,delayed release RxNorm: 678697 TAKE ONE CAPSULE BY MOUTH DAILY 09/05/2018 01/21/2019 Inactive furosemide 40 mg tablet RxNorm: 812065 TAKE ONE TABLET BY MOUTH EVERY MORNING NEEDED FOR EDEMA . TAKE WITH POTASSIUM 09/05/2018 11/03/2018 Inactive phentermine 37.5 mg tablet RxNorm: 485864 1 Tablet(s) PO QAM 201701/21/2019 Inactive doxepin 25 mg capsule RxNorm: 0769581 1 Capsule(s) PO QH S as needed for sleep TAKE ONE CAPSULE BY MOUTH EVERY NIGHT AT BEDTIME NEEDED 08/27/2018 09/04/2018 Inactive Keflex 500 mg capsule RxNorm: 370684 1 Capsule(s) PO TID 08/09/2018 1 10/19/2017 Inactive Diflucan 100 mg tablet RxNorm: 947139 1 Tablet(s) PO QD 08/09/2018 Inactive Premarin 1.25 mg tablet RxNorm: 339617 2 Tablet(s) PO QD 08/09/2018 0 05/04/2019 Inactive Zofran ODT 4 mg disintegrating tablet RxNorm: 164318 1 Tablet(s) PO Q4H as needed for nausea 08/09/2018 01/21/2019 Inactive metoprolol tartrate 100 mg tablet RxNorm: 221523 TAKE O NE TABLET BY MOUTH TWICE A DAY 2018 10/04/2018 Inactive doxepin 25 mg capsule RxNorm: 4675820 TAKE ONE CAPSULE B Y MOUTH EVERY NIGHT AT BEDTIME NEEDED 2018 08/26/2018 Inactive cyclobenzaprine 10 mg tablet RxNorm: 678529 TAKE ONE TA BLET BY MOUTH THREE TIMES A DAY NEEDED FOR MUSCLE SPASMS 2018 09/29/2018 Inactive hydrocodone 10 mg-acetaminophen 325 mg tablet RxNorm: 559448 1-2 Tablet(s) QID as needed for pain MUST LAST 30 DAYS 07/29/2018 08/27/2018 Inactive (Response to an electronic controlled substance refill request - RxReferenceNumber: [id number]) nystatin 100,000 unit/gram topical powder RxNorm: 324613 Applic ation TOP BID 07/22/2018 08/04/2018 Inactive doxepin 25 mg capsule RxNorm: 8219065 1 Capsule(s) PO QHS as needed 07/22/2018 08/05/2018 Inactive triamterene 75 mg-hydrochlorothiazide 50 mg tablet RxNorm: 3 51777 TAKE ONE TABLET BY MOUTH DAILY 07/05/2018 10/02/2018 Inactive duloxetine 60 mg capsule,delayed release RxNorm: 620865 TAKE ONE CAPSULE BY MOUTH DAILY 07/05/2018 09/02/2018 Inactive Klor-Con 8 mEq tablet,extended release RxNorm: 727390 T FARRUKH ONE TABLET BY MOUTH TWICE A DAY 07/05/2018 10/02/2018 Inactive Lipitor 10 mg tablet RxNorm: 370103 TAKE ONE TABLET BY MOUTH AT BEDTIME 07/05/2018 09/02/2018 Inactive allopurinol 300 mg tablet RxNorm: 658016 TAKE ONE TABLET BY LOPEZ TH DAILY 07/05/2018 10/02/2018 Inactive clonidine HCl 0.1 mg tablet RxNorm: 797800 TAKE ONE TAB LET BY MOUTH FOUR TIMES A DAY 07/05/2018 10/02/2018 Inactive hydrocodone 10 mg-acetaminophen 325 mg tablet RxNorm: 028282 1-2 Tablet(s) QID as needed for pain MUST LAST 30 DAYS 06/28/2018 07/27/2018 Inactive (Response to an electronic controlled substance refill request - RxReferenceNumber: [id number]) MediHoney (calcium alginate-honey) 4" X 5" bandage RxNorm: 1 Application TOP QD 06/17/2018 06/26/2018 Inactive honey-hydrocolloid dressing 4" X 5" RxNorm: 1 Application TOP QD 06/17/2018 07/16/2018 Inactive furosemide 40 mg tablet RxNorm: 927109 TAKE ONE TABLET BY MOUTH EVERY MORNING NEEDED FOR EDEMA . TAKE WITH POTASSIUM 06/10/2018 07/09/2018 Inactive This is a refill request. hydrocodone 10 mg-acetaminophen 325 mg tablet RxNorm: 566814 1-2 Tablet(s) QID as needed for pain MUST LAST 30 DAYS 05/30/2018 06/27/2018 Inactive (Response to an electronic controlled substance refill request - RxReferenceNumber: [id number]) acyclovir 800 mg tablet RxNorm: 088711 1 Tablet(s) PO 5x day 201705/22/2018 Inactive Premarin 1.25 mg tablet RxNorm: 625319 1-2 Tablet(s) PO QD 05/15/20 18 07/13/2018 Inactive cyclobenzaprine 10 mg tablet RxNorm: 237529 1 Tablet(s) PO TID as needed for muscle spasm 05/09/2018 05/08/2018 Inactive Medrol (Dustin) 4 mg tablets in a dose pack RxNorm: 019803 Tablet(s) PO As Directed 05/02/2018 06/16/2018 Inactive hydrocodone 10 mg-acetaminophen 325 mg tablet RxNorm: 023526 1-2 Tablet(s) QID as needed for pain MUST LAST 30 DAYS 04/30/2018 05/29/2018 Inactive (Response to an electronic controlled substance refill request - RxReferenceNumber: [id number]) duloxetine 60 mg capsule,delayed release RxNorm: 499145 TAKE ONE CAPSULE BY MOUTH DAILY 04/16/2018 05/15/2018 Inactive Celebrex 200 mg capsule RxNorm: 877112 TAKE ONE CAPSULE BY MOUT H TWICE A DAY 04/16/2018 06/14/2018 Inactive Singulair 10 mg tablet RxNorm: 429960 TAKE ONE TABLET BY MOUTH JOSÉ Y 04/16/2018 11/19/2018 Inactive Lipitor 10 mg tablet RxNorm: 995094 TAKE ONE TABLET BY MOUTH AT BEDTIME 04/16/2018 05/15/2018 Inactive hydrocodone 10 mg-acetaminophen 325 mg tablet RxNorm: 781076 1-2 Tablet(s) QID as needed for pain MUST LAST 30 DAYS 03/29/2018 04/27/2018 Inactive (Response to an electronic controlled substance refill request - RxReferenceNumber: [id number]) cyclobenzaprine 10 mg tablet RxNorm: 812549 1 Tablet(s) PO TID as needed for muscle spasm 03/18/2018 05/09/2018 Inactive omeprazole 40 mg capsule,delayed release RxNorm: 494414 1 Capsu le(s) PO QD 02/26/2018 08/24/2018 Inactive hydrocodone 10 mg-acetaminophen 325 mg tablet RxNorm: 325209 1-2 Tablet(s) QID as needed for pain MUST LAST 30 DAYS 02/26/2018 03/27/2018 Inactive (Response to an electronic controlled substance refill request - RxReferenceNumber: [id number]) metoprolol tartrate 100 mg tablet RxNorm: 256391 1 Tablet(s) PO BID 02/18/2018 08/05/2018 Inactive Lyrica 75 mg capsule RxNorm: 744306 1 Capsule(s) PO QHS 01/30/2018 Inactive phentermine 37.5 mg tablet RxNorm: 264273 1 Tablet(s) PO QAM 201706/16/2018 Inactive hydrocodone 10 mg-acetaminophen 325 mg tablet RxNorm: 033279 1-2 Tablet(s) QID as needed for pain MUST LAST 30 DAYS 01/29/2018 02/25/2018 Inactive (Response to an electronic controlled substance refill request - RxReferenceNumber: [id number]) Klor-Con 8 mEq tablet,extended release RxNorm: 699452 1 Tablet( s) PO BID 01/14/2018 07/04/2018 Inactive allopurinol 300 mg tablet RxNorm: 705626 1 Tablet(s) PO QD 01/15/2007/04/2018 Inactive Lipitor 10 mg tablet RxNorm: 586334 1 Tablet(s) PO QHS 01/14/201812/2017 Inactive triamterene 75 mg-hydrochlorothiazide 50 mg tablet RxNorm: 3 25932 1 Tablet(s) PO QD 01/14/2018 07/04/2018 Inactive hydrocodone 10 mg-acetaminophen 325 mg tablet RxNorm: 756186 1-2 Tablet(s) QID as needed for pain MUST LAST 30 DAYS 12/27/2017 01/25/2018 Inactive (Response to an electronic controlled substance refill request - RxReferenceNumber: [id number]) Onglyza 5 mg tablet RxNorm: 878375 1 Tablet(s) PO QD 12/18/201701/29 Inactive metformin 500 mg tablet RxNorm: 740048 1 Tablet(s) PO BID 12/11/2017 12/10/2017 Inactive metformin 500 mg tablet RxNorm: 991760 1 Tablet(s) PO BID 12/11/2017 12/17/2017 Inactive furosemide 40 mg tablet RxNorm: 509405 1 Tablet(s) PO Q AM prn edema--take with potassium 12/11/2017 06/08/2018 Inactive cyclobenzaprine 10 mg tablet RxNorm: 959497 1 Tablet(s) PO TID as needed for muscle spasm 12/11/2017 03/18/2018 Inactive hydrocodone 10 mg-acetaminophen 325 mg tablet RxNorm: 199182 1-2 Tablet(s) QID as needed for pain MUST LAST 30 DAYS 10/23/2017 11/21/2017 Inactive (Response to an electronic controlled substance refill request - RxReferenceNumber: [id number]) Lipitor 10 mg tablet RxNorm: 054201 1 Tablet(s) PO QHS 10/16/201703/2018 Inactive cyclobenzaprine 10 mg tablet RxNorm: 159024 1 Tablet(s) PO TID as needed for muscle spasm 10/09/2017 12/10/2017 Inactive hydroxyzine HCl 25 mg tablet RxNorm: 652994 1 Tablet(s) PO BID as needed for anxiety 09/20/2017 01/29/2018 Inactive Effexor XR 75 mg capsule,extended release RxNorm: 551186 1 Caps ule(s) PO QD 09/20/2017 01/29/2018 Inactive metoprolol tartrate 100 mg tablet RxNorm: 120989 1 Tablet(s) PO BID 08/20/2017 02/18/2018 Inactive baclofen 20 mg tablet RxNorm: 892075 1 Tablet(s) PO TID as needed for muscle spasm 08/20/2017 01/21/2019 Inactive clonidine HCl 0.1 mg tablet RxNorm: 685794 1 Tablet(s) PO QID 08/2005/16/2018 Inactive Seroquel 25 mg tablet RxNorm: 949865 1 Tablet(s) PO QHS 08/17/2017 Inactive Seroquel 25 mg tablet RxNorm: 854183 1 Tablet(s) PO QHS 08/17/2017 Inactive Diflucan 100 mg tablet RxNorm: 543277 TAKE ONE TABLET BY MOUTH JOSÉ Y 07/25/2017 08/07/2017 Inactive hydrocodone 10 mg-acetaminophen 325 mg tablet RxNorm: 239498 1-2 Tablet(s) QID as needed for pain MUST LAST 30 DAYS 07/19/2017 08/17/2017 Inactive (Response to an electronic controlled substance refill request - RxReferenceNumber: [id number]) clindamycin 300 mg capsule RxNorm: 856766 1 Capsule(s) PO TID 07/1907/28/2017 Inactive clotrimazole-betamethasone 1 %-0.05 % topical cream RxNorm: 907292 Application TOP BID to elbow rash 07/19/2017 06/16/2018 Inactive Singulair 10 mg tablet RxNorm: 838597 Tablet(s) TAKE ONE TABLET BY MOUTH DAILY 07/18/2017 04/13/2018 Inactive triamterene 75 mg-hydrochlorothiazide 50 mg tablet RxNorm: 3 44852 1 Tablet(s) PO QD 07/18/2017 01/14/2018 Inactive Celebrex 200 mg capsule RxNorm: 417028 Capsule(s) TAKE ONE CAPSULE BY MOUTH TWICE A DAY 07/18/2017 10/15/2017 Inactive hydrocodone 10 mg-acetaminophen 325 mg tablet RxNorm: 324997 1-2 Tablet(s) QID as needed for pain MUST LAST 30 DAYS 06/19/2017 07/18/2017 Inactive (Response to an electronic controlled substance refill request - RxReferenceNumber: [id number]) hydrocodone 10 mg-acetaminophen 325 mg tablet RxNorm: 683628 1-2 Tablet(s) QID as needed for pain MUST LAST 30 DAYS 06/19/2017 06/18/2017 Inactive (Response to an electronic controlled substance refill request - RxReferenceNumber: [id number]) baclofen 20 mg tablet RxNorm: 013487 1 Tablet(s) PO TID as needed for muscle spasm 06/18/2017 08/20/2017 Inactive Medrol (Dustin) 4 mg tablets in a dose pack RxNorm: 081978 Tablet(s) PO As Directed 06/05/2017 07/18/2017 Inactive omeprazole 40 mg capsule,delayed release RxNorm: 263919 1 Capsu le(s) PO QD 04/20/2017 10/16/2017 Inactive Premarin 1.25 mg tablet RxNorm: 010925 1-2 Tablet(s) PO QD 04/11/20 17 05/15/2018 Inactive duloxetine 60 mg capsule,delayed release RxNorm: 911494 1 Capsu le(s) PO QD 04/11/2017 09/19/2017 Inactive furosemide 40 mg tablet RxNorm: 881041 1 Tablet(s) PO Q AM prn edema--take with potassium 04/11/2017 12/11/2017 Inactive Klor-Con 8 mEq tablet,extended release RxNorm: 686995 1 Tablet( s) PO BID 04/11/2017 01/14/2018 Inactive Lipitor 10 mg tablet RxNorm: 088505 1 Tablet(s) PO QHS 04/11/201702/2018 Inactive amlodipine 5 mg-benazepril 20 mg capsule RxNorm: 521459 1 Capsu le(s) PO QD 04/11/2017 01/29/2018 Inactive allopurinol 300 mg tablet RxNorm: 384360 1 Tablet(s) PO QD 04/11/2001/14/2018 Inactive clonidine HCl 0.1 mg tablet RxNorm: 291656 1 Tablet(s) PO QID 04/0508/19/2017 Inactive baclofen 20 mg tablet RxNorm: 489209 1 Tablet(s) PO TID as needed for muscle spasm 04/02/2017 06/18/2017 Inactive Premarin 1.25 mg tablet RxNorm: 247524 1-2 Tablet(s) PO QD 03/20/20 17 04/10/2017 Inactive hydrocodone 10 mg-acetaminophen 325 mg tablet RxNorm: 339707 1-2 Tablet(s) QID as needed for pain MUST LAST 30 DAYS 03/14/2017 01/21/2019 Inactive (Response to an electronic controlled substance refill request - RxReferenceNumber: [id number]) metoprolol tartrate 100 mg tablet RxNorm: 073491 1 Tablet(s) PO BID 02/12/2017 08/20/2017 Inactive hydrocodone 10 mg-acetaminophen 325 mg tablet RxNorm: 442090 1-2 Tablet(s) QID as needed for pain MUST LAST 30 DAYS 02/08/2017 03/09/2017 Inactive (Response to an electronic controlled substance refill request - RxReferenceNumber: [id number]) metoprolol tartrate 100 mg tablet RxNorm: 523736 TAKE O NE TABLET BY MOUTH TWICE A DAY 01/11/2017 02/12/2017 Inactive metoprolol tartrate 100 mg tablet RxNorm: 611067 1 Tablet(s) PO BID 12/18/2016 12/17/2016 Inactive metoprolol tartrate 100 mg tablet RxNorm: 050299 1 Tablet(s) PO BID 12/18/2016 01/10/2017 Inactive furosemide 40 mg tablet RxNorm: 832866 1 Tablet(s) PO Q AM prn edema--take with potassium 12/13/2016 02/10/2017 Inactive amitriptyline 100 mg tablet RxNorm: 836128 1 Tablet(s) PO QHS 11/2812/12/2016 Inactive baclofen 20 mg tablet RxNorm: 068522 1 Tablet(s) PO TID as needed for muscle spasm 11/14/2016 04/01/2017 Inactive triamterene 75 mg-hydrochlorothiazide 50 mg tablet RxNorm: 3 74531 1 Tablet(s) PO QD 11/14/2016 11/13/2016 Inactive metolazone 2.5 mg tablet RxNorm: 941792 TAKE ONE TABLET BY MOUTH DAILY NEEDED FOR EDEMA 11/14/2016 12/12/2016 Inactive triamterene 75 mg-hydrochlorothiazide 50 mg tablet RxNorm: 3 60177 1 Tablet(s) PO QD 11/14/2016 07/18/2017 Inactive amitriptyline 50 mg tablet RxNorm: 458426 TAKE ONE TABL ET BY MOUTH AT BEDTIME NEEDED FOR SLEEP 11/14/2016 11/27/2016 Inactive Cymbalta 60 mg capsule,delayed release RxNorm: 166265 1 Capsule (s) PO QHS 11/14/2016 12/12/2016 Inactive clonidine HCl 0.1 mg tablet RxNorm: 313162 1 Tablet(s) PO QID 11/1304/04/2017 Inactive amitriptyline 50 mg tablet RxNorm: 110846 1 Tablet(s) P O QHS as needed for sleep 11/01/2016 11/27/2016 Inactive duloxetine 60 mg capsule,delayed release RxNorm: 233462 TAKE ONE CAPSULE BY MOUTH DAILY 10/20/2016 01/17/2017 Inactive allopurinol 300 mg tablet RxNorm: 346486 TAKE ONE TABLET BY LOPEZ TH DAILY 10/20/2016 01/16/2017 Inactive Lyrica 75 mg capsule RxNorm: 896492 TAKE ONE CAPSULE BY MOUTH EVERY NIGHT AT BEDTIME 10/20/2016 12/10/2016 Inactive Klor-Con 8 mEq tablet,extended release RxNorm: 713437 T FARRUKH ONE TABLET BY MOUTH TWICE A DAY 10/20/2016 01/17/2017 Inactive Celebrex 200 mg capsule RxNorm: 205892 TAKE ONE CAPSULE BY MOUT H TWICE A DAY 10/20/2016 07/18/2017 Inactive Bystolic 10 mg tablet RxNorm: 501784 TAKE ONE TABLET BY MOUTH EVERY NIGHT AT BEDTIME 10/20/2016 12/17/2016 Inactive amlodipine 5 mg-benazepril 20 mg capsule RxNorm: 361815 TAKE ONE CAPSULE BY MOUTH EVERY NIGHT AT BEDTIME -- TO REPLACE AMLODOPINE 10/20/20162016 Inactive Lipitor 10 mg tablet RxNorm: 700159 TAKE ONE TABLET BY MOUTH EVERY NIGHT AT BEDTIME 10/20/2016 01/17/2017 Inactive alprazolam 0.5 mg tablet RxNorm: 303011 3 Tablet(s) PO QHS as needed for sleep/anxiety 09/20/2016 10/31/2016 Inactive Tamiflu 75 mg capsule RxNorm: 975157 1 Capsule(s) PO QD 09/19/2016 Inactive Lyrica 75 mg capsule RxNorm: 013386 1 Capsule(s) PO QHS 09/19/2016 Inactive prednisone 20 mg tablet RxNorm: 875273 1 Tablet(s) PO QD 08/10/2016 1 10/17/2015 Inactive doxycycline hyclate 100 mg capsule RxNorm: 2411781 1 Capsule(s) PO BID 08/10/2016 08/19/2016 Inactive Medrol (Dustin) 4 mg tablets in a dose pack RxNorm: 742923 Tablet(s) PO As Directed 07/31/2016 08/22/2016 Inactive Singulair 10 mg tablet RxNorm: 861624 TAKE ONE TABLET BY MOUTH JOSÉ Y 07/27/2016 07/18/2017 Inactive hydrocodone 10 mg-acetaminophen 325 mg tablet RxNorm: 915920 1-2 Tablet(s) QID as needed for pain MUST LAST 30 DAYS 07/26/2016 08/24/2016 Inactive (Response to an electronic controlled substance refill request - RxReferenceNumber: [id number]) alprazolam 0.5 mg tablet RxNorm: 297510 3 Tablet(s) PO QHS as needed for anxiety or sleep 07/26/2016 09/20/2016 Inactive clindamycin 300 mg capsule RxNorm: 242397 1 Capsule(s) PO TID 07/2007/29/2016 Inactive Diflucan 100 mg tablet RxNorm: 387731 1 Tablet(s) PO QD 07/20/2016 Inactive Levaquin 500 mg tablet RxNorm: 601080 1 Tablet(s) PO QD 07/17/2016 Inactive Levaquin 500 mg tablet RxNorm: 956824 1 Tablet(s) PO QD 07/10/2016 Inactive Levaquin 500 mg tablet RxNorm: 337424 1 Tablet(s) PO QD 07/10/2016 Inactive mupirocin 2 % topical ointment RxNorm: 345128 TOP Apply topically to affected areas twice daily 07/06/2016 09/18/2016 Inactive Singulair 10 mg tablet RxNorm: 584884 TAKE ONE TABLET BY MOUTH JOSÉ Y 06/21/2016 01/21/2019 Inactive alprazolam 0.5 mg tablet RxNorm: 378366 TAKE THREE TABL ETS BY MOUTH AT BEDTIME NEEDED FOR SLEEP OR STRESS 05/22/2016 06/20/2016 Inactive triamterene 75 mg-hydrochlorothiazide 50 mg tablet RxNorm: 3 32245 1 Tablet(s) PO QD 04/26/2016 10/21/2016 Inactive Premarin 1.25 mg tablet RxNorm: 908090 1-2 Tablet(s) PO QD 04/26/20 16 03/20/2017 Inactive Klor-Con 8 mEq tablet,extended release RxNorm: 281638 1 Tablet( s) PO BID 04/26/2016 10/19/2016 Inactive Celebrex 200 mg capsule RxNorm: 076602 1 Capsule(s) PO BID TAKE ONE CAPSULE BY MOUTH EVERY DAY 04/26/2016 10/19/2016 Inactive Lipitor 10 mg tablet RxNorm: 657892 1 Tablet(s) PO QHS 04/26/201605/2017 Inactive allopurinol 300 mg tablet RxNorm: 781422 1 Tablet(s) PO QD TAKE ONE TABLET BY MOUTH EVERY DAY 04/26/2016 10/19/2016 Inactive amlodipine 5 mg-benazepril 20 mg capsule RxNorm: 301307 1 Capsule(s) PO QHS replaces amlodopine 04/26/2016 10/19/2016 Inactive duloxetine 60 mg capsule,delayed release RxNorm: 549616 1 Capsu le(s) PO QD 04/26/2016 10/19/2016 Inactive Bystolic 10 mg tablet RxNorm: 991214 1 Tablet(s) PO QHS 04/26/2016 Inactive Singulair 10 mg tablet RxNorm: 518110 1 Tablet(s) PO QD TAKE ONE TABLET BY MOUTH DAILY 04/26/2016 06/20/2016 Inactive clonidine HCl 0.1 mg tablet RxNorm: 932351 1 Tablet(s) PO QID 04/2610/22/2016 Inactive hydrocodone 10 mg-acetaminophen 325 mg tablet RxNorm: 289309 1-2 Tablet(s) QID as needed for pain TAKE ONE TO TWO TABLETS BY MOUTH FOUR TIMES A DAY . MUST LAST 30 DAYS 03/31/2016 04/29/2016 Inactive (Response to an electronic controlled substance refill request - RxReferenceNumber: [id number]) Klor-Con 8 mEq tablet,extended release RxNorm: 223989 T FARRUKH ONE TABLET BY MOUTH TWICE A DAY 03/24/2016 09/29/2019 Inactive prednisone 20 mg tablet RxNorm: 447005 1 Tablet(s) PO QD 03/09/2016 0 03/08/2016 Inactive prednisone 20 mg tablet RxNorm: 023906 1 Tablet(s) PO QD 03/09/2016 0 03/13/2016 Inactive alprazolam 0.5 mg tablet RxNorm: 207407 3 Tablet(s) PO QHS as needed for sleep/stress 03/02/2016 01/21/2019 Inactive mupirocin 2 % topical ointment RxNorm: 138493 TOP twice daily to affected areas of face and neck 02/21/2016 04/25/2016 Inactive clonidine HCl 0.1 mg tablet RxNorm: 537155 TAKE ONE TAB LET BY MOUTH FOUR TIMES A DAY 02/15/2016 09/29/2019 Inactive clonidine HCl 0.1 mg tablet RxNorm: 664487 1 Tablet(s) PO QID 02/1404/25/2016 Inactive Premarin 1.25 mg tablet RxNorm: 600866 1-2 Tablet(s) PO QD 02/15/20 16 03/15/2016 Inactive Klor-Con 8 mEq tablet,extended release RxNorm: 773609 T FARRUKH ONE TABLET BY MOUTH TWICE A DAY 02/15/2016 03/15/2016 Inactive potassium chloride ER 20 mEq tablet,extended release(part/cr yst) RxNorm: 107344 2 Tablet(s) PO BID 02/15/2016 03/15/2016 Inactive Macrobid 100 mg capsule RxNorm: 069753 1 Capsule(s) PO BID 01/24/2001/30/2016 Inactive prednisone 20 mg tablet RxNorm: 750680 Take 3tabs PO QD x 2 days, then 2 tabs PO QD x 2 days, then 1 tab PO QD x 2 days, then 1/2 tab PO QDy x 2 days 12/23/2015 04/25/2016 Inactive Klor-Con 8 mEq tablet,extended release RxNorm: 675174 T FARRUKH ONE TABLET BY MOUTH TWICE A DAY 12/20/2015 02/14/2016 Inactive alprazolam 1 mg tablet RxNorm: 070568 1 1/2 Tablet(s) PO QHS 201501/23/2016 Inactive nystatin 100,000 unit/gram topical cream RxNorm: 879682 APPLY TO AFFECTED AREA(S) TWO TIMES A DAY 11/30/2015 12/14/2015 Inactive Singulair 10 mg tablet RxNorm: 520300 TAKE ONE TABLET BY MOUTH JOSÉ Y 11/18/2015 04/25/2016 Inactive allopurinol 300 mg tablet RxNorm: 627276 1 Tablet(s) PO QD TAKE ONE TABLET BY MOUTH EVERY DAY 10/26/2015 04/22/2016 Inactive Singulair 10 mg tablet RxNorm: 834040 TAKE ONE TABLET BY MOUTH JOSÉ Y 10/26/2015 11/17/2015 Inactive duloxetine 60 mg capsule,delayed release RxNorm: 816619 1 Capsu le(s) PO QD 10/26/2015 04/22/2016 Inactive triamterene 75 mg-hydrochlorothiazide 50 mg tablet RxNorm: 3 44319 1 Tablet(s) PO QD 10/26/2015 11/14/2016 Inactive potassium chloride ER 20 mEq tablet,extended release(part/cr yst) RxNorm: 686011 2 Tablet(s) PO BID 10/26/2015 02/14/2016 Inactive Lipitor 10 mg tablet RxNorm: 346254 1 Tablet(s) PO QHS 10/26/2015 Inactive amlodipine 5 mg-benazepril 20 mg capsule RxNorm: 148910 1 Capsule(s) PO QHS replaces amlodopine 10/26/2015 04/22/2016 Inactive Bystolic 10 mg tablet RxNorm: 672541 1 Tablet(s) PO QHS 10/26/2015 Inactive amlodipine 5 mg-benazepril 20 mg capsule RxNorm: 455570 1 Capsule(s) PO QHS replaces amlodopine 10/06/2015 10/25/2015 Inactive amlodipine 5 mg tablet RxNorm: 415061 1 Tablet(s) PO QHS 09/30/2015 0 04/25/2016 Inactive metolazone 2.5 mg tablet RxNorm: 938607 TAKE ONE TABLET BY MOUTH DAILY NEEDED FOR EDEMA 09/30/2015 01/21/2019 Inactive duloxetine 60 mg capsule,delayed release RxNorm: 403089 1 Capsu le(s) PO QD 09/30/2015 10/25/2015 Inactive cephalexin 500 mg capsule RxNorm: 149497 1 Capsule(s) PO BID 201509/23/2015 Inactive mupirocin 2 % topical ointment RxNorm: 293225 TOP twice daily to affected areas of face and neck 09/14/2015 02/20/2016 Inactive baclofen 20 mg tablet RxNorm: 619103 1 Tablet(s) PO TID as needed for muscle spasm 09/01/2015 11/14/2016 Inactive clonidine HCl 0.1 mg tablet RxNorm: 511942 1 Tablet(s) PO QID 09/0102/14/2016 Inactive alprazolam 1 mg tablet RxNorm: 255084 1 1/2 Tablet(s) PO QHS 201409/09/2015 Inactive baclofen 20 mg tablet RxNorm: 062814 1 Tablet(s) PO TID as needed for muscle spasm 07/23/2015 09/01/2015 Inactive omeprazole 40 mg capsule,delayed release RxNorm: 995325 1 Capsu le(s) PO QD 07/23/2015 04/25/2016 Inactive alprazolam 1 mg tablet RxNorm: 952032 1 1/2 Tablet(s) PO QHS 201408/10/2015 Inactive Bystolic 10 mg tablet RxNorm: 802823 1 Tablet(s) PO BID 06/24/2015 Inactive allopurinol 300 mg tablet RxNorm: 725555 1 Tablet(s) PO QD TAKE ONE TABLET BY MOUTH EVERY DAY 06/23/2015 10/20/2015 Inactive alprazolam 1 mg tablet RxNorm: 929622 1 1/2 Tablet(s) PO QHS 201407/06/2015 Inactive clonidine HCl 0.1 mg tablet RxNorm: 416175 1 Tablet(s) PO QID 06/0209/01/2015 Inactive clonidine HCl 0.1 mg tablet RxNorm: 003273 1 Tablet(s) PO QID 06/0206/01/2015 Inactive Cymbalta 60 mg capsule,delayed release RxNorm: 152905 1 Capsule (s) PO QHS 06/02/2015 08/30/2015 Inactive Cymbalta 60 mg capsule,delayed release RxNorm: 061673 1 Capsule (s) PO QHS 06/02/2015 06/01/2015 Inactive clonidine HCl 0.1 mg tablet RxNorm: 073726 1 Tablet(s) PO TID 05/3106/01/2015 Inactive replaces 0.2mg dose metolazone 2.5 mg tablet RxNorm: 306407 TAKE ONE TABLET BY MOUTH DAILY NEEDED FOR EDEMA 05/21/2015 06/19/2015 Inactive Singulair 10 mg tablet RxNorm: 754804 TAKE ONE TABLET BY MOUTH JOSÉ Y 05/21/2015 10/17/2015 Inactive Cymbalta 30 mg capsule,delayed release RxNorm: 922056 1 Capsule (s) PO QHS 05/20/2015 11/14/2016 Inactive betamethasone valerate 0.1 % topical cream RxNorm: 125837 Appli cation TOP BID 05/10/2015 04/25/2016 Inactive Bactroban 2 % topical ointment RxNorm: 515077 Application TOP BID 0 05/10/2015 06/20/2015 Inactive baclofen 20 mg tablet RxNorm: 323285 1 Tablet(s) PO TID as needed 0 04/26/2015 07/23/2015 Inactive Lipitor 10 mg tablet RxNorm: 671795 1 Tablet(s) PO QHS 04/26/201508/2016 Inactive clonidine HCl 0.1 mg tablet RxNorm: 473185 1 Tablet(s) PO TID 04/2605/30/2015 Inactive replaces 0.2mg dose Klor-Con 8 mEq tablet,extended release RxNorm: 371382 1 Tablet( s) PO BID 04/26/2015 04/25/2016 Inactive metolazone 2.5 mg tablet RxNorm: 735651 1 Tablet(s) PO QD as ne eded for edema 04/26/2015 04/25/2015 Inactive triamterene 75 mg-hydrochlorothiazide 50 mg tablet RxNorm: 3 11893 1 Tablet(s) PO QD 04/26/2015 10/22/2015 Inactive Premarin 1.25 mg tablet RxNorm: 221985 1-2 Tablet(s) PO QD 04/26/20 15 10/22/2015 Inactive Bystolic 10 mg tablet RxNorm: 122401 1 Tablet(s) PO QAM TAKE ONE TABLET BY MOUTH EVERY MORNING 04/23/2015 06/23/2015 Inactive clonidine HCl 0.1 mg tablet RxNorm: 504774 1 Tablet(s) PO TID 03/2304/25/2015 Inactive replaces 0.2mg dose nystatin 100,000 unit/gram topical cream RxNorm: 230397 Applica tion TOP BID 03/23/2015 06/20/2015 Inactive baclofen 20 mg tablet RxNorm: 875338 1 Tablet(s) PO TID as needed 0 03/23/2015 04/25/2015 Inactive Premarin 1.25 mg tablet RxNorm: 234038 1-2 Tablet(s) PO QD 03/23/20 15 04/25/2015 Inactive Klor-Con 8 mEq tablet,extended release RxNorm: 564758 1 Tablet( s) PO BID 03/23/2015 04/25/2015 Inactive cefdinir 300 mg capsule RxNorm: 640252 2 Capsule(s) PO QD 03/16/2015 03/25/2015 Inactive baclofen 20 mg tablet RxNorm: 816206 1 Tablet(s) PO TID as needed 0 03/02/2015 03/22/2015 Inactive allopurinol 300 mg tablet RxNorm: 110441 1 Tablet(s) PO QD TAKE ONE TABLET BY MOUTH EVERY DAY 02/22/2015 05/22/2015 Inactive Klor-Con M20 mEq tablet,extended release RxNorm: 875569 2 Tablet(s) PO BID to use with lasix 02/22/2015 06/20/2015 Inactive clonidine HCl 0.1 mg tablet RxNorm: 607834 1 Tablet(s) PO TID 02/1903/22/2015 Inactive replaces 0.2mg dose Lipitor 10 mg tablet RxNorm: 165170 1 Tablet(s) PO QHS 01/20/201506/2015 Inactive Lipitor 10 mg tablet RxNorm: 130038 1 Tablet(s) PO QHS 01/20/2015 Inactive Singulair 10 mg tablet RxNorm: 194231 1 Tablet(s) PO QD TAKE ONE TABLET BY MOUTH EVERY DAY 11/20/2014 05/18/2015 Inactive Lipitor 10 mg tablet RxNorm: 763410 1 Tablet(s) PO QHS 11/20/201408/2015 Inactive allopurinol 300 mg tablet RxNorm: 571247 1 Tablet(s) PO QD TAKE ONE TABLET BY MOUTH EVERY DAY 11/20/2014 02/16/2015 Inactive Bystolic 10 mg tablet RxNorm: 580593 1 Tablet(s) PO QAM TAKE ONE TABLET BY MOUTH EVERY MORNING 11/20/2014 04/22/2015 Inactive Klor-Con 8 mEq tablet,extended release RxNorm: 278220 1 Tablet( s) PO BID 11/20/2014 02/17/2015 Inactive baclofen 20 mg tablet RxNorm: 716742 1 Tablet(s) PO TID as needed 0 11/20/2014 01/21/2019 Inactive baclofen 20 mg tablet RxNorm: 861212 1 Tablet(s) PO TID as needed 0 10/27/2014 11/19/2014 Inactive baclofen 20 mg tablet RxNorm: 125674 1 Tablet(s) PO TID as needed 0 10/26/2014 03/01/2015 Inactive allopurinol 300 mg tablet RxNorm: 166648 1 Tablet(s) PO QD TAKE ONE TABLET BY MOUTH EVERY DAY 10/26/2014 11/20/2014 Inactive Bystolic 10 mg tablet RxNorm: 243318 1 Tablet(s) PO QAM TAKE ONE TABLET BY MOUTH EVERY MORNING 10/26/2014 11/20/2014 Inactive clonidine HCl 0.1 mg tablet RxNorm: 051021 1 Tablet(s) PO TID 09/2805/27/2019 Inactive replaces 0.2mg dose clonidine HCl 0.1 mg tablet RxNorm: 207697 1 Tablet(s) PO TID 09/2802/18/2015 Inactive replaces 0.2mg dose baclofen 20 mg tablet RxNorm: 698881 1 Tablet(s) PO TID as needed 1 11/01/2013 08/30/2014 Inactive Lipitor 10 mg tablet RxNorm: 911181 1 Tablet(s) PO QHS 08/31/2014 Inactive baclofen 20 mg tablet RxNorm: 152389 1 Tablet(s) PO TID as needed 1 11/01/2013 10/26/2014 Inactive triamterene 75 mg-hydrochlorothiazide 50 mg tablet RxNorm: 3 30692 1 Tablet(s) PO QD 08/31/2014 02/26/2015 Inactive Klor-Con 8 mEq tablet,extended release RxNorm: 343499 1 Tablet( s) PO BID 08/31/2014 11/20/2014 Inactive baclofen 20 mg tablet RxNorm: 504608 1 Tablet(s) PO TID as needed 1 09/30/2013 10/25/2014 Inactive baclofen 20 mg tablet RxNorm: 819095 1 Tablet(s) PO TID as needed 1 09/30/2013 08/31/2014 Inactive omeprazole 40 mg capsule,delayed release RxNorm: 558182 1 Capsu le(s) PO QD 07/21/2014 07/23/2015 Inactive Flonase 50 mcg/actuation nasal spray,suspension RxNorm: 8963 23 1 [place] NASAL BID 07/15/2014 04/09/2017 Inactive hydrocodone 10 mg-acetaminophen 325 mg tablet RxNorm: 048852 1-2 Tablet(s) QID as needed for pain TAKE ONE TO TWO TABLETS BY MOUTH FOUR TIMES A DAY . MUST LAST 30 DAYS 06/30/2014 07/27/2014 Inactive (Response to an electronic controlled substance refill request - RxReferenceNumber: [id number]) baclofen 20 mg tablet RxNorm: 129542 1 Tablet(s) PO TID as needed 1 07/31/2014 Inactive Singulair 10 mg tablet RxNorm: 710957 1 Tablet(s) PO QD TAKE ONE TABLET BY MOUTH EVERY DAY 05/25/2014 11/20/2014 Inactive Bystolic 10 mg tablet RxNorm: 584578 TAKE ONE TABLET BY MOUTH E VERY MORNING 05/25/2014 09/21/2014 Inactive allopurinol 300 mg tablet RxNorm: 369369 1 Tablet(s) PO QD TAKE ONE TABLET BY MOUTH EVERY DAY 05/25/2014 10/21/2014 Inactive baclofen 20 mg tablet RxNorm: 976059 1 Tablet(s) PO TID as needed 0 05/25/2014 06/29/2014 Inactive allopurinol 300 mg tablet RxNorm: 003280 TAKE ONE TABLET BY LOPEZ TH EVERY DAY 05/25/2014 09/21/2014 Inactive Singulair 10 mg tablet RxNorm: 446038 1 Tablet(s) PO QD TAKE ONE TABLET BY MOUTH EVERY DAY 05/25/2014 05/24/2014 Inactive Bystolic 10 mg tablet RxNorm: 663066 1 Tablet(s) PO QAM TAKE ONE TABLET BY MOUTH EVERY MORNING 05/25/2014 10/21/2014 Inactive metolazone 2.5 mg tablet RxNorm: 476151 1 Tablet(s) PO QD as ne eded for edema 05/18/2014 04/25/2015 Inactive Lasix 40 mg tablet RxNorm: 288146 1 Tablet(s) PO QAM s hould take potassium supplementation with this medication 05/14/2014 05/17/2014 Inactive hydrocodone 10 mg-acetaminophen 325 mg tablet RxNorm: 964301 1-2 Tablet(s) QID as needed for pain TAKE ONE TO TWO TABLETS BY MOUTH FOUR TIMES A DAY . MUST LAST 30 DAYS 05/07/2014 06/05/2014 Inactive (Response to an electronic controlled substance refill request - RxReferenceNumber: [id number]) alprazolam 0.5 mg tablet RxNorm: 938307 TAKE ONE TABLET BY MOUTH TWICE A DAY , MUST LAST 30 DAYS 05/07/2014 05/22/2016 Inactive (Response to a n electronic controlled substance refill request - RxReferenceNumber: [id number]) diclofenac sodium 75 mg tablet,delayed release RxNorm: 10565 6 1 Tablet(s) PO BID for pain 04/24/2014 07/20/2014 Inactive Celebrex 200 mg capsule RxNorm: 196329 TAKE ONE CAPSULE BY MOUT H EVERY DAY 04/24/2014 07/20/2014 Inactive alprazolam 0.5 mg tablet RxNorm: 149392 TAKE ONE TABLET BY MOUTH TWICE A DAY , MUST LAST 30 DAYS 03/24/2014 04/22/2014 Inactive (Response to a n electronic controlled substance refill request - RxReferenceNumber: [id number]) diclofenac sodium 75 mg tablet,delayed release RxNorm: 65005 6 1 Tablet(s) PO BID for pain 03/24/2014 04/24/2014 Inactive clonidine HCl 0.1 mg tablet RxNorm: 881932 1 Tablet(s) PO TID 03/2409/28/2014 Inactive replaces 0.2mg dose Klor-Con 8 mEq tablet,extended release RxNorm: 837689 1 Tablet( s) PO BID 02/26/2014 08/31/2014 Inactive diclofenac sodium 75 mg tablet,delayed release RxNorm: 85164 6 1 Tablet(s) PO BID for pain 02/25/2014 03/24/2014 Inactive hydrocodone 10 mg-acetaminophen 325 mg tablet RxNorm: 984780 1-2 Tablet(s) QID as needed for pain TAKE ONE TO TWO TABLETS BY MOUTH FOUR TIMES A DAY . MUST LAST 30 DAYS 02/25/2014 03/26/2014 Inactive (Response to an electronic controlled substance refill request - RxReferenceNumber: [id number]) alprazolam 0.5 mg tablet RxNorm: 981783 Tablet(s) PO BI D as needed for anxiety TAKE ONE TABLET BY MOUTH TWICE A DAY , MUST LAST 30 DAYS 02/25/2014 Inactive (Response to an electronic controlled [place] bstance refill request - RxReferenceNumber: [id number]) [AttnRPh: Saving apply/adjudicate RxGRP:SG20 RxBIN:[id number] RxPCN: ID#:[id number]] alprazolam 0.5 mg tablet RxNorm: 380288 Tablet(s) TAKE ONE TABLET BY MOUTH TWICE A DAY , MUST LAST 30 DAYS 01/27/2014 02/24/2014 Inactive (Respo nse to an electronic controlled substance refill request - RxReferenceNumber: [id number]) [AttnRPh: Saving apply/adjudicate RxGRP:SG20 RxBIN:[id number] RxPCN: ID#:[id number]] hydrocodone 10 mg-acetaminophen 325 mg tablet RxNorm: 120600 1-2 Tablet(s) QID as needed for pain TAKE ONE TO TWO TABLETS BY MOUTH FOUR TIMES A DAY . MUST LAST 30 DAYS 01/27/2014 02/24/2014 Inactive (Response to an electronic controlled substance refill request - RxReferenceNumber: [id number]) alprazolam 0.5 mg tablet RxNorm: 392120 TAKE ONE TABLET BY MOUTH TWICE A DAY , MUST LAST 30 DAYS 01/27/2014 01/26/2014 Inactive (Response to a n electronic controlled substance refill request - RxReferenceNumber: [id number]) Premarin 1.25 mg tablet RxNorm: 859446 1-2 Tablet(s) PO QD 01/28/20 14 07/25/2014 Inactive alprazolam 0.5 mg tablet RxNorm: 818939 TAKE ONE TABLET BY MOUTH TWICE A DAY , MUST LAST 30 DAYS 01/27/2014 01/27/2014 Inactive (Response to a n electronic controlled substance refill request - RxReferenceNumber: [id number]) hydrocodone 10 mg-acetaminophen 325 mg tablet RxNorm: 384970 TAKE ONE TO TWO TABLETS BY MOUTH FOUR TIMES A DAY . MUST LAST 30 DAYS 01/27/20142013 Inactive (Response to an electronic controlled [place] bstance refill request - RxReferenceNumber: [id number]) Celebrex 200 mg capsule RxNorm: 906886 1 Capsule(s) PO QD TAKE ONE CAPSULE BY MOUTH EVERY DAY 12/29/2013 04/27/2014 Inactive hydrocodone 10 mg-acetaminophen 325 mg tablet RxNorm: 263066 1-2 Tablet(s) PO QID as needed for severe pain 12/29/2013 01/27/2014 Inactive allopurinol 300 mg tablet RxNorm: 004560 1 Tablet(s) PO QD TAKE ONE TABLET BY MOUTH EVERY DAY 12/29/2013 05/24/2014 Inactive alprazolam 0.5 mg tablet RxNorm: 781573 TAKE ONE TABLET BY MOUTH TWICE A DAY , MUST LAST 30 DAYS 12/29/2013 01/27/2014 Inactive (Response to a n electronic controlled substance refill request - RxReferenceNumber: [id number]) Celebrex 200 mg capsule RxNorm: 548302 1 Capsule(s) PO QD TAKE ONE CAPSULE BY MOUTH EVERY DAY 12/29/2013 12/29/2013 Inactive Bystolic 10 mg tablet RxNorm: 808795 1 Tablet(s) PO QAM TAKE ONE TABLET BY MOUTH EVERY MORNING 12/29/2013 05/24/2014 Inactive Bystolic 10 mg tablet RxNorm: 793667 1 Tablet(s) PO QAM TAKE ONE TABLET BY MOUTH EVERY MORNING 12/29/2013 12/29/2013 Inactive Singulair 10 mg tablet RxNorm: 030217 1 Tablet(s) PO QD TAKE ONE TABLET BY MOUTH EVERY DAY 12/29/2013 05/25/2014 Inactive hydrocodone 10 mg-acetaminophen 325 mg tablet RxNorm: 685592 TAKE ONE TO TWO TABLETS BY MOUTH FOUR TIMES A DAY . MUST LAST 30 DAYS 12/29/20132013 Inactive (Response to an electronic controlled [place] bstance refill request - RxReferenceNumber: [id number]) Trazadone 75mg Tablet RxNorm: 1 Tablet(s) PO QHS as needed 03/23/2014 Inactive Trazadone 75mg Tablet RxNorm: 1 Tablet(s) PO QHS 12/24/20132014 Inactive Soma 350 mg tablet RxNorm: 074515 Tablet(s) PO TAKE ON E TABLET BY MOUTH THREE TIMES A DAY NEEDED FOR MUSCLE SPASMS. THIS MUST LAST 30 DAYS BETWEEN REFILLS. 12/10/2013 12/22/2013 Inactive (Appended: Cont rolled substance eRx refill - RxReferenceNumber: [id number]) diclofenac sodium 75 mg tablet,delayed release RxNorm: 21699 6 1 Tablet(s) PO BID for pain 12/10/2013 02/24/2014 Inactive allopurinol 300 mg tablet RxNorm: 579568 1 Tablet(s) PO QD 11/20/19 14 12/29/2013 Inactive alprazolam 0.5 mg tablet RxNorm: 306046 2 Tablet(s) PO BID 11/13/19 12/29/2013 Inactive prn clonidine 0.1 mg tablet RxNorm: 325864 1 Tablet(s) PO TID 11/12/2013 02/09/2014 Inactive replaces 0.2mg dose Klor-Con M20 mEq tablet,extended release RxNorm: 563328 2 Tablet(s) PO BID to use with lasix 11/12/2013 05/10/2014 Inactive Singulair 10 mg tablet RxNorm: 727753 1 Tablet(s) PO QD 11/12/2013 Inactive hydrocodone 10 mg-acetaminophen 325 mg tablet RxNorm: 409302 1-2 Tablet(s) PO QID as needed for severe pain 11/12/2013 12/28/2013 Inactive Bystolic 10 mg tablet RxNorm: 774116 1 Tablet(s) PO QAM 11/12/2013 Inactive Soma 350 mg tablet RxNorm: 053825 Tablet(s) PO TAKE ON E TABLET BY MOUTH THREE TIMES A DAY NEEDED FOR MUSCLE SPASMS. THIS MUST LAST 30 DAYS BETWEEN REFILLS. 10/13/2013 12/10/2013 Inactive (Appended: Cont rolled substance eRx refill - RxReferenceNumber: [id number]) hydrocodone 10 mg-acetaminophen 325 mg tablet RxNorm: 875073 1-2 Tablet(s) PO QID as needed for severe pain 10/03/2013 11/11/2013 Inactive diclofenac sodium 75 mg tablet,delayed release RxNorm: 71383 8 1 Tablet(s) PO BID for pain 09/11/2013 12/10/2013 Inactive alprazolam 0.5 mg tablet RxNorm: 306529 1 Tablet(s) PO BID May refill on 04/26/13 09/01/2013 10/30/2013 Inactive prn hydrocodone 10 mg-acetaminophen 325 mg tablet RxNorm: 261244 1-2 Tablet(s) PO QID as needed for severe pain 09/01/2013 10/02/2013 Inactive triamterene 75 mg-hydrochlorothiazide 50 mg tablet RxNorm: 3 74943 1 Tablet(s) PO QD 08/04/2013 08/31/2014 Inactive cyclobenzaprine 10 mg tablet RxNorm: 390816 1 Tablet(s) PO TID prn spasm 08/04/2013 08/13/2013 Inactive clonidine 0.1 mg tablet RxNorm: 429898 1 Tablet(s) PO TID 08/04/2013 11/11/2013 Inactive replaces 0.2mg dose cyclobenzaprine 10 mg tablet RxNorm: 059516 1 Tablet(s) PO TID prn spasm 07/23/2013 08/01/2013 Inactive hydrocodone 10 mg-acetaminophen 325 mg tablet RxNorm: 068766 2 1-2 Tablet(s) PO QID as needed for severe pain 06/09/2013 08/07/2013 Inactive Singulair 10 mg tablet RxNorm: 144912 1 Tablet(s) PO QD 05/29/2013 Inactive Klor-Con 8 mEq tablet,extended release RxNorm: 173469 1 Tablet( s) PO BID 05/29/2013 02/26/2014 Inactive allopurinol 300 mg tablet RxNorm: 921627 1 Tablet(s) PO QD 05/29/20 13 11/19/2013 Inactive Bystolic 10 mg tablet RxNorm: 282810 1 Tablet(s) PO QAM take one daily in the morning. 05/29/2013 11/11/2013 Inactive scopolamine 1.5 mg 72 hr Transderm Patch RxNorm: 521092 Application TD Q72H for motion sickness 05/26/2013 07/22/2013 Inactive Soma 350 mg tablet RxNorm: 027294 1 Tablet(s) PO TID as needed for spasm 05/19/2013 10/13/2013 Inactive diclofenac sodium 75 mg tablet,delayed release RxNorm: 65621 8 1 Tablet(s) PO BID for pain 05/14/2013 07/22/2013 Inactive allopurinol 300 mg tablet RxNorm: 128140 1 Tablet(s) PO QD 04/25/20 13 05/28/2013 Inactive alprazolam 0.5 mg tablet RxNorm: 715173 1 Tablet(s) PO BID May refill on 04/26/13 04/25/2013 06/23/2013 Inactive prn Celebrex 200 mg capsule RxNorm: 467048 1 Capsule(s) PO QD 04/16/2013 12/29/2013 Inactive alprazolam 0.5 mg tablet RxNorm: 285794 1 Tablet(s) PO BID May refill on 04/26/13 04/16/2013 04/24/2013 Inactive prn Soma 350 mg tablet RxNorm: 664968 1 Tablet(s) PO TID as needed for spasm 04/16/2013 No Stop Date Active Lasix 40 mg tablet RxNorm: 769373 1 Tablet(s) PO QAM s hould take potassium supplementation with this medication 04/16/2013 06/14/2013 Inactive clonidine 0.1 mg tablet RxNorm: 901906 1 Tablet(s) PO TID 04/16/2013 08/03/2013 Inactive replaces 0.2mg dose prednisone 20 mg tablet RxNorm: 858391 1 Tablet(s) PO BID 04/16/2013 04/20/2013 Inactive diclofenac sodium 75 mg tablet,delayed release RxNorm: 18258 8 1 Tablet(s) PO BID for pain 04/14/2013 05/13/2013 Inactive hydrocodone 10 mg-acetaminophen 325 mg tablet RxNorm: 919498 2 1-2 Tablet(s) PO QID as needed for severe pain 04/14/2013 No Stop Date Active Lasix 40 mg tablet RxNorm: 403476 1 Tablet(s) PO QAM s hould take potassium supplementation with this medication 03/31/2013 04/15/2013 Inactive Celebrex 200 mg capsule RxNorm: 113676 1 Capsule(s) PO QD 03/31/2013 04/15/2013 Inactive alprazolam 0.5 mg tablet RxNorm: 983254 1 Tablet(s) PO BID 03/28/20 13 04/15/2013 Inactive prn hydrocodone 10 mg-acetaminophen 325 mg tablet RxNorm: 338354 2 1-2 Tablet(s) PO QID as needed for severe pain 03/10/2013 No Stop Date Active metformin ER 500 mg 24 hr tablet,extended release RxNorm: 86 1018 1 Tablet(s) PO QD 03/06/2013 07/22/2013 Inactive clindamycin 300 mg capsule RxNorm: 968731 2 Capsule(s) PO TID 03/0503/14/2013 Inactive Zaroxolyn 2.5 mg tablet RxNorm: 946253 1 Tablet(s) PO QAM 03/05/2013 05/19/2015 Inactive amlodipine 10 mg tablet RxNorm: 630206 1 Tablet(s) PO QD 03/03/2013 0 05/25/2013 Inactive Norvasc 10 mg tablet RxNorm: 096755 1 Tablet(s) PO QD 02/28/201307/11 Inactive Celebrex 200 mg capsule RxNorm: 545036 1 Capsule(s) PO QD 02/28/2013 03/30/2013 Inactive diclofenac sodium 75 mg tablet,delayed release RxNorm: 14953 8 1 Tablet(s) PO BID for pain 02/14/2013 03/15/2013 Inactive Soma 350 mg tablet RxNorm: 081169 1 Tablet(s) PO TID as needed for spasm 02/14/2013 No Stop Date Active hydrocodone 10 mg-acetaminophen 325 mg tablet RxNorm: 210318 2 1-2 Tablet(s) PO QID as needed for severe pain 02/14/2013 No Stop Date Active Norvasc 10 mg tablet RxNorm: 239027 1 Tablet(s) PO QD 02/10/201302/09 Inactive Celebrex 200 mg capsule RxNorm: 266040 1 Capsule(s) PO QD 01/27/2013 01/26/2013 Inactive Premarin 1.25 mg tablet RxNorm: 908620 1-2 Tablet(s) PO QD 01/28/20 13 06/25/2013 Inactive alprazolam 0.5 mg tablet RxNorm: 188862 1 Tablet(s) PO BID 01/28/20 13 02/25/2013 Inactive prn amlodipine 5 mg tablet RxNorm: 048488 1 Tablet(s) PO QD 01/27/2013 Inactive Celebrex 200 mg capsule RxNorm: 099644 1 Capsule(s) PO QD 01/27/2013 02/27/2013 Inactive gabapentin 600 mg tablet RxNorm: 763016 1 Tablet(s) PO QHS 01/16/20 13 07/22/2013 Inactive Soma 350 mg tablet RxNorm: 306174 1 Tablet(s) PO TID as needed for spasm 01/15/2013 No Stop Date Active hydrocodone 10 mg-acetaminophen 325 mg tablet RxNorm: 809164 2 1-2 Tablet(s) PO QID as needed for severe pain 01/15/2013 No Stop Date Active Soma 350 mg tablet RxNorm: 247452 1 Tablet(s) PO TID as needed for spasm 01/13/2013 No Stop Date Active alprazolam 0.5 mg tablet RxNorm: 477377 1 Tablet(s) PO BID 12/31/19 13 01/26/2013 Inactive prn diclofenac sodium 75 mg tablet,delayed release RxNorm: 93210 8 1 Tablet(s) PO BID for pain 12/09/2012 01/07/2013 Inactive gabapentin 600 mg tablet RxNorm: 296609 1 Tablet(s) PO QHS 12/10/19 13 01/07/2013 Inactive hydrocodone 10 mg-acetaminophen 325 mg tablet RxNorm: 147347 2 1-2 Tablet(s) PO QID as needed for severe pain 12/02/2012 No Stop Date Active Levaquin 750 mg tablet RxNorm: 985412 1 Tablet(s) PO QD 11/21/2012 Inactive Singulair 10 mg tablet RxNorm: 282373 1 Tablet(s) PO QD 11/11/2012 Inactive clonidine 0.2 mg tablet RxNorm: 065773 1 Tablet(s) PO TID 11/11/2012 04/15/2013 Inactive alprazolam 0.5 mg tablet RxNorm: 744082 1 Tablet(s) PO BID 11/12/19 13 12/10/2012 Inactive prn Klor-Con 8 mEq tablet,extended release RxNorm: 956359 1 Tablet( s) PO BID 11/11/2012 03/04/2013 Inactive hydrocodone 10 mg-acetaminophen 325 mg tablet RxNorm: 496627 2 1-2 Tablet(s) PO QID as needed for severe pain 11/06/2012 No Stop Date Active alprazolam 0.5 mg tablet RxNorm: 598649 1 Tablet(s) PO BID 10/15/19 13 11/10/2012 Inactive prn hydrocodone-acetaminophen 10 mg-325 mg tablet RxNorm: 136767 2 1-2 Tablet(s) PO QID as needed for severe pain 10/10/2012 10/09/2012 Inactive allopurinol 300 mg tablet RxNorm: 644900 1 Tablet(s) PO QD 09/20/19 13 12/18/2012 Inactive alprazolam 0.5 mg tablet RxNorm: 180624 1 Tablet(s) PO BID 09/17/19 13 10/14/2012 Inactive prn hydrocodone-acetaminophen 10 mg-325 mg tablet RxNorm: 922412 2 1-2 Tablet(s) PO QID as needed for severe pain 08/22/2012 08/21/2012 Inactive Norvasc 10 mg tablet RxNorm: 684303 1 Tablet(s) PO QD 08/12/201201/10 Inactive Premarin 1.25 mg tablet RxNorm: 110594 1-2 Tablet(s) PO QD 07/30/20 12 12/26/2012 Inactive alprazolam 0.5 mg tablet RxNorm: 635457 1 Tablet(s) PO BID 07/29/20 12 08/27/2012 Inactive prn Klor-Con 8 mEq tablet,extended release RxNorm: 556116 1 Tablet( s) PO BID 07/29/2012 11/10/2012 Inactive hydrocodone-acetaminophen 10 mg-325 mg tablet RxNorm: 645054 2 1-2 Tablet(s) PO QID as needed for severe pain 07/29/2012 No Stop Date Active Premarin 1.25 mg tablet RxNorm: 014290 1-2 Tablet(s) PO QD 07/29/20 12 07/29/2012 Inactive clonidine 0.2 mg tablet RxNorm: 747489 1 Tablet(s) PO TID 07/29/2012 10/28/2012 Inactive ketorolac 10 mg tablet RxNorm: 929497 1 Tablet(s) PO QID prn he adache 07/18/2012 No Stop Date Active hydrocodone-acetaminophen 10 mg-325 mg tablet RxNorm: 159392 2 1-2 Tablet(s) PO QID as needed for severe pain 07/03/2012 No Stop Date Active amlodipine 5 mg tablet RxNorm: 287515 1 Tablet(s) PO QD 07/02/2012 Inactive allopurinol 300 mg tablet RxNorm: 483968 1 Tablet(s) PO QD 07/02/20 12 09/19/2012 Inactive Celebrex 200 mg capsule RxNorm: 179465 1 Capsule(s) PO QD for j oint pain 06/26/2012 10/23/2012 Inactive diclofenac sodium 75 mg tablet,delayed release RxNorm: 66129 8 1 Tablet(s) PO BID for pain 06/19/2012 09/16/2012 Inactive hydrocodone-acetaminophen 10 mg-325 mg tablet RxNorm: 748529 2 1-2 Tablet(s) PO QID as needed for severe pain 06/10/2012 No Stop Date Active alprazolam 0.5 mg tablet RxNorm: 458448 1 Tablet(s) PO BID 06/03/20 12 07/02/2012 Inactive prn ketorolac 10 mg tablet RxNorm: 557892 1 Tablet(s) PO Q8H 05/27/2012 0 01/21/2019 Inactive as needed for headache hydrocodone-acetaminophen 10 mg-325 mg tablet RxNorm: 801251 2 1-2 Tablet(s) PO QID as needed for severe pain 05/15/2012 No Stop Date Active allopurinol 300 mg tablet RxNorm: 042300 1 Tablet(s) PO QD 05/14/20 12 06/12/2012 Inactive allopurinol 300 mg tablet RxNorm: 137657 1 Tablet(s) PO QD 05/14/20 12 05/13/2012 Inactive amlodipine 5 mg tablet RxNorm: 123384 1 Tablet(s) PO QD 05/01/2012 Inactive amlodipine 5 mg Tab RxNorm: 897433 1 Tablet(s) PO QD 05/01/201204/30 Inactive Celebrex 200 mg capsule RxNorm: 358676 1 Capsule(s) PO QD for j oint pain 05/01/2012 06/25/2012 Inactive Singulair 10 mg tablet RxNorm: 426082 1 Tablet(s) PO QD 05/01/2012 Inactive alprazolam 0.5 mg tablet RxNorm: 997056 1 Tablet(s) PO BID 05/01/20 12 05/30/2012 Inactive prn Celebrex 200 mg Cap RxNorm: 663136 1 Capsule(s) PO QD for joint radu n 05/01/2012 04/30/2012 Inactive hydrocodone-acetaminophen 10 mg-325 mg tablet RxNorm: 306417 2 1-2 Tablet(s) PO QID as needed for severe pain 04/19/2012 No Stop Date Active Lasix 40 mg tablet RxNorm: 770879 1 Tablet(s) PO QAM s rajwinderuld take potassium supplementation with this medication 04/05/2012 06/03/2012 Inactive alprazolam 0.5 mg Tab RxNorm: 614025 1 Tablet(s) PO BID 04/05/2012 Inactive prn hydrocodone-acetaminophen 10 mg-325 mg Tab RxNorm: 6010048 1-2 Tablet(s) PO QID as needed for severe pain 03/25/2012 03/24/2012 Inactive clonidine 0.2 mg Tab RxNorm: 700346 1 Tablet(s) PO TID 03/08/2012 Inactive alprazolam 0.5 mg Tab RxNorm: 462119 1 Tablet(s) PO BID 03/08/2012 Inactive prn Soma 350 mg tablet RxNorm: 210304 1 Tablet(s) PO TID for spasm 02/0903/18/2012 Inactive clonidine 0.2 mg tablet RxNorm: 787868 1 Tablet(s) PO TID 03/08/2012 07/28/2012 Inactive Celebrex 200 mg Cap RxNorm: 076614 1 Capsule(s) PO QD for joint rdau n 03/01/2012 04/29/2012 Inactive amlodipine 5 mg Tab RxNorm: 212368 1 Tablet(s) PO QD 02/26/201202/24 Inactive amlodipine 5 mg Tab RxNorm: 191238 1 Tablet(s) PO QD 02/26/201204/25 Inactive Bactroban 2 % Ointment RxNorm: 252487 Application TOP QID to sores 02/23/2012 No Stop Date Active amlodipine 2.5 mg tablet RxNorm: 243373 1 Tablet(s) PO QHS 02/20/2002/25/2012 Inactive doxycycline hyclate 100 mg Cap RxNorm: 4320440 1 Capsule(s) PO BID 02/20/2012 02/29/2012 Inactive hydrocodone-acetaminophen 10 mg-325 mg Tab RxNorm: 3786568 1-2 T ablet(s) PO QID 02/08/2012 No Stop Date Active alprazolam 0.5 mg Tab RxNorm: 129272 1 Tablet(s) PO BID 02/08/2012 Inactive prn Singulair 10 mg Tab RxNorm: 489201 1 Tablet(s) PO QD 02/08/201204/30 Inactive Soma 350 mg Tab RxNorm: 301942 1 Tablet(s) PO TID for spasm 012 03/07/2012 Inactive Soma 350 mg Tab RxNorm: 166044 1 Tablet(s) PO TID for spasm 012 02/05/2012 Inactive diclofenac sodium 75 mg tablet,delayed release RxNorm: 58576 8 1 Tablet(s) PO BID for pain 02/01/2012 03/18/2012 Inactive Celebrex 200 mg Cap RxNorm: 735109 1 Capsule(s) PO QD for joint radu n 01/30/2012 02/28/2012 Inactive Lasix 40 mg Tab RxNorm: 749236 1 Tablet(s) PO QAM 01/24/2012 03/18/20 12 Inactive potassium chloride ER 20 mEq tablet,extended release(part/cr yst) RxNorm: 814130 2 Tablet(s) PO BID 01/24/2012 02/22/2012 Inactive alprazolam 0.5 mg Tab RxNorm: 977250 1 Tablet(s) PO BID 01/11/2012 Inactive prn hydrocodone-acetaminophen 10 mg-325 mg Tab RxNorm: 6687625 1-2 T ablet(s) PO QID 01/11/2012 No Stop Date Active Ambien 10 mg Tab RxNorm: 392489 1 Tablet(s) PO QHS 01/11/2012 012 Inactive Klor-Con 8 mEq Tab RxNorm: 362759 1 Tablet(s) PO BID 01/11/201201/22 Inactive diclofenac sodium 75 mg Tab, Delayed Release RxNorm: 043440 1 Tablet(s) PO BID for pain 01/10/2012 01/31/2012 Inactive Ambien 10 mg Tab RxNorm: 933191 1 Tablet(s) PO QHS 12/11/2011 012 Inactive alprazolam 0.5 mg Tab RxNorm: 299681 1 Tablet(s) PO BID 12/11/2011 Inactive prn hydrocodone 10 mg-acetaminophen 325 mg tablet RxNorm: 246878 1-2 Tablet(s) PO TID 11/28/2011 No Stop Date Active as needed for pa in - Previous quantity #240, will start dosing for #180 in April 2011 per Doctor Td. Ambien 10 mg Tab RxNorm: 930079 1 Tablet(s) PO QHS 11/09/2011 012 Inactive alprazolam 0.5 mg Tab RxNorm: 014110 1 Tablet(s) PO BID 11/09/2011 Inactive prn hydrocodone-acetaminophen 10 mg-325 mg Tab RxNorm: 6871965 1-2 T ablet(s) PO TID 11/06/2011 No Stop Date Active as needed for pain - Previous quantity #240, will start dosing for #180 in April 2011 per Doctor Td. Singulair 10 mg Tab RxNorm: 572038 1 Tablet(s) PO QD 10/13/201110/12 Inactive Singulair 10 mg Tab RxNorm: 584056 1 Tablet(s) PO QD 10/13/201102/06 Inactive hydrocodone-acetaminophen 10 mg-325 mg Tab RxNorm: 2524590 1-2 T ablet(s) PO TID 10/10/2011 10/09/2011 Inactive as needed for pain - Previous quantity #240, will start dosing for #180 in April 2011 per Doctor Td. hydrocodone-acetaminophen 10 mg-325 mg Tab RxNorm: 7044759 1-2 T ablet(s) PO TID 10/09/2011 No Stop Date Active as needed for pain - Previous quantity #240, will start dosing for #180 in April 2011 per Doctor Td. Klor-Con 8 mEq Tab RxNorm: 057288 1 Tablet(s) PO BID 10/02/201101/09 Inactive triamterene 75 mg-hydrochlorothiazide 50 mg tablet RxNorm: 3 45348 1 Tablet(s) PO QD 09/14/2011 03/06/2013 Inactive Ambien 10 mg Tab RxNorm: 154672 1 Tablet(s) PO QHS 09/14/2011 012 Inactive hydrocodone-acetaminophen 10 mg-325 mg Tab RxNorm: 3426170 1-2 T ablet(s) PO TID 09/14/2011 No Stop Date Active as needed for pain - Previous quantity #240, will start dosing for #180 in April 2011 per Doctor Td. alprazolam 0.5 mg Tab RxNorm: 321687 1 Tablet(s) PO BID 09/14/2011 Inactive prn Zithromax 500 mg Tab RxNorm: 6210370 1 Tablet(s) PO QD 09/13/201106/2012 Inactive prednisone 20 mg Tab RxNorm: 364451 1 Tablet(s) PO BID 08/31/2011 Inactive Ambien 10 mg Tab RxNorm: 329368 1 Tablet(s) PO QHS 08/17/2011 011 Inactive hydrocodone-acetaminophen 10 mg-325 mg Tab RxNorm: 5490505 1-2 T ablet(s) PO TID 08/17/2011 No Stop Date Active as needed for pain - Previous quantity #240, will start dosing for #180 in April 2011 per Doctor Td. clonidine 0.2 mg Tab RxNorm: 072679 1 Tablet(s) PO TID 08/17/201112/2011 Inactive Ambien 10 mg Tab RxNorm: 773332 1 Tablet(s) PO QHS 08/17/2011 019 Inactive alprazolam 0.5 mg Tab RxNorm: 866768 1 Tablet(s) PO BID 08/17/2011 Inactive prn hydrocodone-acetaminophen 10 mg-325 mg Tab RxNorm: 7320669 1-2 T ablet(s) PO TID 08/17/2011 08/16/2011 Inactive as needed for pain - Previous quantity #240, will start dosing for #180 in April 2011 per Doctor Td. Singulair 10 mg Tab RxNorm: 735188 1 Tablet(s) PO QD 08/17/201108/16 Inactive Klor-Con 8 mEq Tab RxNorm: 601981 1 Tablet(s) PO QD 08/17/20112011 Inactive alprazolam 0.5 mg Tab RxNorm: 641093 1 Tablet(s) PO BID 07/20/2011 Inactive prn Ambien 10 mg Tab RxNorm: 440693 1 Tablet(s) PO QHS 07/20/2011 012 Inactive Singulair 10 mg Tab RxNorm: 774569 1 Tablet(s) PO QD 07/20/201107/19 Inactive Premarin 1.25 mg tablet RxNorm: 723566 2 Tablet(s) PO QD 07/20/2011 0 01/21/2019 Inactive Premarin 1.25 mg tablet RxNorm: 575621 1-2 Tablet(s) PO QD 07/20/20 11 12/16/2011 Inactive Premarin 1.25 mg Tab RxNorm: 421973 1-2 Tablet(s) PO QD 07/06/2011 Inactive alprazolam 0.5 mg Tab RxNorm: 131726 1 Tablet(s) PO BID 06/22/2011 Inactive prn alprazolam 0.5 mg Tab RxNorm: 572881 1 Tablet(s) PO BID 06/22/2011 Inactive prn Premarin 1.25 mg Tab RxNorm: 384305 1 Tablet(s) PO QD m ay do 90 day fill if desired 06/22/2011 07/05/2011 Inactive hydrocodone-acetaminophen 10 mg-325 mg Tab RxNorm: 5946343 1-2 T ablet(s) PO TID 06/22/2011 No Stop Date Active as needed for pain - Previous quantity #240, will start dosing for #180 in April 2011 per Doctor Td. clonidine 0.2 mg Tab RxNorm: 128466 1 Tablet(s) PO TID 05/25/201103/2011 Inactive triamterene-hydrochlorothiazide 75 mg-50 mg Tab RxNorm: 3108 18 1 Tablet(s) PO QD 05/25/2011 09/13/2011 Inactive alprazolam 0.5 mg Tab RxNorm: 543487 1 Tablet(s) PO BID 05/25/2011 Inactive prn hydrocodone-acetaminophen 10 mg-325 mg Tab RxNorm: 2116080 1-2 T ablet(s) PO TID 05/25/2011 No Stop Date Active as needed for pain - Previous quantity #240, will start dosing for #180 in April 2011 per Doctor Td. Robaxin-750 750 mg Tab RxNorm: 902935 2 Tablet(s) PO QHS 05/22/2011 1 Inactive prn spasm hydrocodone-acetaminophen 10 mg-325 mg Tab RxNorm: 4490763 1-2 T ablet(s) PO TID 04/26/2011 No Stop Date Active as needed for pain - Previous quantity #240, will start dosing for #180 in April 2011 per Doctor Td. alprazolam 0.5 mg Tab RxNorm: 596224 1 Tablet(s) PO BID 04/25/2011 Inactive prn Klor-Con 8 mEq Tab RxNorm: 341615 1 Tablet(s) PO QD 03/30/20112010 Inactive Klor-Con 8 mEq Tab RxNorm: 489402 1 Tablet(s) PO QD 03/29/20112010 Inactive hydrocodone-acetaminophen 10 mg-325 mg Tab RxNorm: 1770162 1-2 T ablet(s) PO TID 03/20/2011 04/25/2011 Inactive as needed for pain - Previous quantity #240, will start dosing for #180 in April 2011 per Doctor Td. alprazolam 0.5 mg Tab RxNorm: 487563 1 Tablet(s) PO BID prn 011 03/30/2011 Inactive Ambien 10 mg Tab RxNorm: 888087 1 Tablet(s) PO QHS 03/01/2011 011 Inactive cyclobenzaprine 10 mg Tab RxNorm: 390093 1 Tablet(s) PO TID 011 03/18/2012 Inactive cyclobenzaprine 10 mg Tab RxNorm: 451790 1 Tablet(s) PO TID 011 01/08/2011 Inactive cyclobenzaprine 10 mg Tab RxNorm: 441213 1 Tablet(s) PO TID 011 12/20/2010 Inactive terbinafine 250 mg Tab RxNorm: 361633 1 Tablet(s) PO QD 12/12/2010 Inactive triamterene-hydrochlorothiazide 75 mg-50 mg Tab RxNorm: 3108 18 1 Tablet(s) PO QD 12/07/2010 06/04/2011 Inactive Klor-Con 8 8 mEq Tab RxNorm: 888413 1 Tablet(s) PO QD 12/07/201001/08 Inactive Premarin 1.25 mg Tab RxNorm: 169944 2 Tablet(s) PO QD 12/07/201001/08 Inactive clonidine 0.2 mg Tab RxNorm: 896687 1 Tablet(s) PO TID 12/07/2010 Inactive hydrocodone-acetaminophen 7.5 mg-650 mg Tab RxNorm: 015931 1 Ta blet(s) PO Q4H 12/05/2010 01/21/2019 Inactive hydrocodone-acetaminophen 7.5 mg-650 mg Tab RxNorm: 174661 1 Ta blet(s) PO Q4H 10/26/2010 11/14/2010 Inactive hydrocodone-acetaminophen 7.5 mg-650 mg Tab RxNorm: 439974 1 Ta blet(s) PO Q4H 10/13/2010 10/25/2010 Inactive hydrocodone-acetaminophen 7.5 mg-650 mg Tab RxNorm: 103560 1 Ta blet(s) PO Q4H 09/15/2010 09/12/2010 Inactive alprazolam 0.5 mg Tab RxNorm: 224566 1 Tablet(s) PO BID prn 011 09/12/2010 Inactive terbinafine 250 mg Tab RxNorm: 986413 1 Tablet(s) PO QD 09/05/2010 Inactive hydrocodone-acetaminophen 7.5 mg-650 mg Tab RxNorm: 741717 1 Ta blet(s) PO Q4H 08/29/2010 09/17/2010 Inactive alprazolam 0.5 mg Tab RxNorm: 173905 1 Tablet(s) PO BID prn 010 09/27/2010 Inactive alprazolam 0.5 mg Tab RxNorm: 412783 1 Tablet(s) PO BID prn 010 09/06/2010 Inactive Klor-Con 8 mEq Tab RxNorm: 131232 1 Tablet(s) PO QD 08/08/20102010 Inactive hydrocodone-acetaminophen 7.5 mg-650 mg Tab RxNorm: 329782 1 Ta blet(s) PO Q4H 08/08/2010 08/27/2010 Inactive Ambien 10 mg Tab RxNorm: 995409 1 Tablet(s) PO QHS 08/08/2010 Inactive clonidine 0.2 mg Tab RxNorm: 894184 1 Tablet(s) PO TID 08/08/2010 Inactive Premarin 1.25 mg Tab RxNorm: 383440 2 Tablet(s) PO QD 08/08/201009/12 Inactive Ambien 10 mg Tab RxNorm: 129101 1 Tablet(s) PO QHS 07/18/2010 Inactive alprazolam 0.5 mg Tab RxNorm: 059973 1 Tablet(s) PO BID prn 010 08/07/2010 Inactive hydrocodone-acetaminophen 7.5 mg-650 mg Tab RxNorm: 198295 1 Ta blet(s) PO Q4H 07/12/2010 07/31/2010 Inactive clonidine 0.2 mg Tab RxNorm: 042929 1 Tablet(s) PO TID 06/20/2010 Inactive terbinafine 250 mg Tab RxNorm: 161613 1 Tablet(s) PO QD 05/24/2010 Inactive Clonidine 0.2 mg Tab RxNorm: 370695 1 Tablet(s) PO TID 05/24/201006/2010 Inactive Ambien 10 mg Tab RxNorm: 650411 1 Tablet(s) PO QHS 05/24/2010 Inactive alprazolam 0.5 mg Tab RxNorm: 255410 1 Tablet(s) PO BID 05/24/2010 Inactive Klor-Con 8 mEq Tab RxNorm: 598000 1 Tablet(s) PO QD 05/24/20102009 Inactive alprazolam 0.5 mg Tab RxNorm: 392549 2 Tablet(s) PO QD prn 05/24/2007/17/2010 Inactive triamterene-hydrochlorothiazide 75 mg-50 mg Tab RxNorm: 3108 18 1 Tablet(s) PO QD 05/24/2010 11/19/2010 Inactive Ambien 10 mg Tab RxNorm: 441810 1 Tablet(s) PO QHS 05/23/2010 010 Inactive Alprazolam 0.5 mg Tab RxNorm: 587414 2 Tablet(s) PO QD prn 05/23/20 10 05/23/2010 Inactive Premarin 1.25 mg Tab RxNorm: 656238 2 Tablet(s) PO QD 05/19/201007/12 Inactive Hydrocodone-Acetaminophen 7.5 mg-650 mg Tab RxNorm: 221899 1 Ta blet(s) PO Q4H 05/19/2010 03/20/2011 Inactive Prednisone 20 mg Tab RxNorm: 324517 1 Tablet(s) PO BID 05/17/2010 Inactive Prednisone 20 mg Tab RxNorm: 229275 1 Tablet(s) PO BID 05/06/201001/2010 Inactive Premarin 1.25 mg Tab RxNorm: 128540 Tablet(s) PO 2 M-W-F, and 1 Wo-Cv-New-Sun 05/05/2010 08/02/2010 Inactive Premarin 1.25 mg Tab RxNorm: 849074 Tablet(s) PO 2 M-W-F, and 1 Ka-Ra-Psg-Sun 05/04/2010 05/04/2010 Inactive Premarin 1.25 mg Tab RxNorm: 587566 Tablet(s) PO 2 M-W-F, and 1 Oj-Eh-Ebu-Sun 05/04/2010 05/03/2010 Inactive Prednisone 20 mg Tab RxNorm: 994678 1 Tablet(s) PO BID 04/27/2010 Inactive Alprazolam 0.5 mg Tab RxNorm: 804376 2 Tablet(s) PO QD prn 04/26/20 10 05/22/2010 Inactive Clindamycin 300 mg Cap RxNorm: 314077 2 Capsule(s) PO TID 04/05/2010 04/18/2010 Inactive Terbinafine 250 mg Tab RxNorm: 879448 1 Tablet(s) PO QD 04/04/2010 Inactive Hydrocodone-Acetaminophen 7.5 mg-650 mg Tab RxNorm: 592600 1 Ta blet(s) PO Q4H 03/30/2010 04/18/2010 Inactive Avelox 400 mg Tab RxNorm: 526517 1 Tablet(s) PO QD 03/09/2010 010 Inactive Hydrocodone-Acetaminophen 7.5 mg-650 mg Tab RxNorm: 197516 1 Ta blet(s) PO Q4H 03/08/2010 03/27/2010 Inactive Alprazolam 0.5 mg Tab RxNorm: 188462 2 Tablet(s) PO QD prn 03/08/20 10 04/25/2010 Inactive Klor-Con 8 mEq Tab RxNorm: 292920 1 Tablet(s) PO QD when takes lasi x 03/07/2010 09/29/2019 Inactive Premarin 1.25 mg Tab RxNorm: 739877 1 Tablet(s) PO QD 03/03/201003/11 Inactive Alprazolam 0.5 mg Tab RxNorm: 202688 1 Tablet(s) PO BID PRN 010 No Stop Date Active triamterene-hydrochlorothiazide 75 mg-50 mg Tab RxNorm: 3108 18 1 Tablet(s) PO QD 02/09/2010 02/03/2011 Inactive Hydrocodone-Acetaminophen 10 mg-750 mg Tab RxNorm: 474573 1 Tablet(s) PO Q4H PRN 02/09/2010 03/20/2011 Inactive Clonidine 0.2 mg Tab RxNorm: 854030 1 Tablet(s) PO TID 01/13/201009/2009 Inactive Alprazolam 0.5 mg Tab RxNorm: 763270 1 Tablet(s) PO BID PRN 010 01/12/2010 Inactive Hydrocodone-Acetaminophen 10 mg-750 mg Tab RxNorm: 464556 1 Tablet(s) PO Q4H PRN 01/13/2010 01/12/2010 Inactive ANGELIQ 1 mg-0.5 mg Tab RxNorm: 9451365 1 Tablet(s) PO QD 12/27/2009 01/23/2010 Inactive Lasix 40 mg Tab RxNorm: 434519 1 Tablet(s) PO QAM 12/14/2009 06/11/20 10 Inactive Vitamin B12 1000mcg Tablet RxNorm: 1 Tablet(s) PO QD No Start Date Active cyclobenzaprine 10 mg tablet RxNorm: 421811 1 Tablet(s) PO TID as needed DO NOT USE WITH BACLOFEN No Start Date Active Vitamin D 5,000 unit Tab RxNorm: 1 Tablet(s) PO QD No Start Date Active vitamin E (dl, acetate) 400 unit Cap RxNorm: 293950 1 Capsule(s ) PO QD No Start Date Active Benadryl 25 mg Cap RxNorm: 5527359 Capsule(s) PO PRN No Start Date Inactive amitriptyline 100 mg tablet RxNorm: 767086 1 Tablet(s) PO QHS No St art Date 11/27/2016 Inactive Zithromax Z-Dustin 250 mg tablet RxNorm: 054014 Tablet(s) PO as di rected No Start Date 07/22/2013 Inactive Klor-Con 8 mEq tablet,extended release RxNorm: 142454 1 Tablet( s) PO BID No Start Date 07/28/2012 Inactive scopolamine 1.5 mg 72 hr Transderm Patch RxNorm: 720735 Application TD Q72H for motion sickness No Start Date 05/25/2013 Inactive Klonopin 1 mg tablet RxNorm: 082188 1-2 Tablet(s) PO QHS as nee ded for sleep No Start Date 06/20/2015 Inactive Klor-Con M20 mEq tablet,extended release RxNorm: 879110 2 Tablet(s) PO BID to use with lasix No Start Date 11/11/2013 Inactive Bystolic 5 mg tablet RxNorm: 124259 1 Tablet(s) PO QD No Start Date 1 Inactive Bystolic 10 mg tablet RxNorm: 494221 1 Tablet(s) PO BID No Start Da te 07/06/2015 Inactive Premarin 1.25 mg Tab RxNorm: 981100 Tablet(s) PO 2 -W-, and 1 Hn-Qc-Mql-Sun No Start Date 05/03/2010 Inactive baclofen 20 mg tablet RxNorm: 246883 1 Tablet(s) PO TID as needed for muscle spasm No Start Date 07/22/2015 Inactive hydrocodone-acetaminophen 7.5 mg-650 mg Tab RxNorm: 190655 1 Tablet(s) PO Q4H as needed for pain No Start Date 03/20/2011 Inactive albuterol sulfate 1.25 mg/3 mL Neb Solution RxNorm: 080202 1 Unit Dose INH Q4H 2boxes No Start Date 09/06/2015 Inactive Butrans 20 mcg/hour Transderm Patch RxNorm: 448982 1 TD WEEKLY apply to skin weekly after removing previous. No Start Date 07/22/2013 Inactive Medrol (Dustin) 4 mg tablets in a dose pack RxNorm: 412710 Tablet(s) PO As Directed No Start Date 07/30/2016 Inactive hydrocodone-acetaminophen 10 mg-325 mg Tab RxNorm: 5501811 1-2 Tablet(s) PO TID as needed for pain No Start Date 03/19/2011 Inactive Klonopin 1 mg tablet RxNorm: 556754 1 Tablet(s) PO QHS No Start Date 02/28/2016 Inactive honey topical RxNorm: topical No Start Date 06/16/2018 Inactive Clonidine 0.2 mg Tab RxNorm: 881612 1 Tablet(s) PO TID No Start Date 01/12/2010 Inactive ketorolac 10 mg tablet RxNorm: 134009 1 Tablet(s) PO Q8H No Start D ate 03/18/2012 Inactive as needed for headache Singulair 10 mg Tab RxNorm: 913780 1 Tablet(s) PO QD No Start Date Inactive Premarin 1.25 mg Tab RxNorm: 686000 1 Tablet(s) PO QD No Start Date 1 Inactive Flonase 50 mcg/Actuation Nasal [place] RxNorm: 7527839 1 [place] CECELIA AL BID No Start Date 03/18/2012 Inactive Terbinafine 250 mg Tab RxNorm: 811631 1 Tablet(s) PO QD No Start Da te 04/03/2010 Inactive Fexofenadine 180 mg Tab RxNorm: 8002740 1 Tablet(s) PO QD No Start Date 09/06/2015 Inactive baclofen 20 mg tablet RxNorm: 459487 1 Tablet(s) PO TID as needed N o Start Date 05/25/2014 Inactive Diovan 160 mg Tab RxNorm: 634321 1 Tablet(s) PO QD No Start Date 09/12 Inactive mupirocin 2 % topical ointment RxNorm: 743401 1 Application TOP QID No Start Date 04/25/2016 Inactive ZOFRAN ODT 4 mg Tab, Rapid Dissolve RxNorm: 239006 1 Tablet(s) PO Q4H No Start Date 03/18/2012 Inactive as needed for nausea and vomiting Alprazolam 0.5 mg Tab RxNorm: 014865 1 Tablet(s) PO BID PRN No Star t Date 01/12/2010 Inactive cyclobenzaprine 10 mg tablet RxNorm: 842034 1 Tablet(s) PO TID as needed for muscle spasm No Start Date 10/08/2017 Inactive Albuterol 0.083% Aerosol Solution RxNorm: 1 Appl ication INH Q4H Use one ampule every 4 hrs with nebulizer as needed for shortness of breath. No Start Date 10/09/2010 Inactive lorazepam 1 mg tablet RxNorm: 849462 1 1/2 Tablet(s) PO QHS No Star t Date 02/02/2016 Inactive Melatonin 3 mg Tab RxNorm: 095445 Tablet(s) PO PRN No Start Date 07/11 Inactive Medrol (Dustin) 4 mg Tabs in a Dose Pack RxNorm: 056726 Tablet(s) PO N o Start Date 11/28/2010 Inactive lorazepam 1 mg tablet RxNorm: 620705 1 Tablet(s) PO QHS as need ed for sleep No Start Date 01/30/2016 Inactive hydrocodone-acetaminophen 10 mg-325 mg Tab RxNorm: 4509196 1-2 Tablet(s) PO QID as needed for severe pain No Start Date 03/24/2012 Inactive celecoxib 200 mg capsule RxNorm: 778051 1 Capsule(s) PO BID No Star t Date 06/26/2019 Inactive amlodipine 5 mg-benazepril 20 mg capsule RxNorm: 776209 1 Capsu le(s) PO QD No Start Date 04/10/2017 Inactive Bystolic 20 mg tablet RxNorm: 696847 1/2 Tablet(s) PO QAM No Start Date 01/23/2016 Inactive Bystolic 20 mg tablet RxNorm: 316106 1 Tablet(s) PO QAM No Start Da te 04/25/2016 Inactive Ambien 10 mg Tab RxNorm: 898015 1 Tablet(s) PO QHS No Start Date 05/11 Inactive Klor-Con 8 mEq Tab RxNorm: 629791 1 Tablet(s) PO QD when takes lasix No Start Date 03/06/2010 Inactive aspirin 81 mg tablet RxNorm: 365178 1 Tablet(s) PO QD No Start Date 0 01/29/2018 Inactive hydrocodone-acetaminophen 10 mg-325 mg Tab RxNorm: 5786006 1-2 T ablet(s) PO QID No Start Date 01/10/2012 Inactive Bystolic 10 mg tablet RxNorm: 388719 1 Tablet(s) PO QAM take one daily in the morning. No Start Date 05/28/2013 Inactive nystatin 100,000 unit/mL Oral Susp RxNorm: 151879 5 Milliliter( s) PO QID No Start Date 03/18/2012 Inactive swish and spit scopolamine 1.5 mg 72 hr Transderm Patch RxNorm: 156530 1 Unit Dose TD Q72H for motion sickness No Start Date 12/23/2013 Inactive Hydrocodone-Acetaminophen 10 mg-750 mg Tab RxNorm: 266949 1 Tablet(s) PO Q4H PRN No Start Date 01/12/2010 Inactive Soma 350 mg tablet RxNorm: 624599 1 Tablet(s) PO TID as needed for spasm No Start Date 01/12/2013 Inactive baclofen 10 mg tablet RxNorm: 026011 1 Tablet(s) PO TID as needed for muscle spasm No Start Date 09/18/2019 Inactive Soma 350 mg Tab RxNorm: 326605 1 Tablet(s) PO TID for spasm No Star t Date 01/31/2012 Inactive Co Q-10 400 mg capsule RxNorm: 969502 1 Capsule(s) PO QD No Start D ate 01/21/2019 Inactive nystatin 100,000 unit/gram topical cream RxNorm: 669075 Applica tion TOP BID No Start Date 03/22/2015 Inactive Exforge 5 mg-160 mg Tab RxNorm: 072655 1 Tablet(s) PO QD No Start D ate 10/09/2010 Inactive Hydrocodone-Acetaminophen 7.5 mg-650 mg Tab RxNorm: 244981 1 Ta blet(s) PO Q4H No Start Date 03/07/2010 Inactive Robaxin-750 750 mg Tab RxNorm: 523184 1-2 Tablet(s) PO TID prn spasm No Start Date 05/21/2011 Inactive amlodipine 5 mg tablet RxNorm: 420208 1 Tablet(s) PO QHS No Start D ate 09/29/2015 Inactive oxycodone-acetaminophen 10 mg-325 mg tablet RxNorm: 7772038 1-2 Tablet(s) PO Q6H No Start Date 06/16/2018 Inactive Triamterene-Hydrochlorothiazide 75 mg-50 mg Tab RxNorm: 3108 18 1 Tablet(s) PO QD No Start Date 02/08/2010 Inactive Alprazolam 0.5 mg Tab RxNorm: 967832 2 Tablet(s) PO QD prn No Start Date 03/07/2010 Inactive Bystolic 20 mg tablet RxNorm: 880706 1 Tablet(s) PO QAM No Start Da te 08/17/2015 Inactive ketorolac 10 mg tablet RxNorm: 022363 1 Tablet(s) PO QID prn he adache No Start Date 07/17/2012 Inactive acyclovir 800 mg Tab RxNorm: 041680 1 Tablet(s) PO BID No Start Date 03/18/2012 Inactive duloxetine 60 mg capsule,delayed release RxNorm: 422689 1 Capsu le(s) PO QD No Start Date 09/29/2015 Inactive Norvasc 5 mg tablet RxNorm: 163381 1 Tablet(s) PO QHS No Start Date 1 10/18/2014 Inactive promethazine 25 mg tablet RxNorm: 559401 1 Tablet(s) PO Q8H use sparingly No Start Date 07/22/2013 Inactive alprazolam 0.5 mg tablet RxNorm: 468003 3 Tablet(s) PO QHS No Start Date 06/06/2015 Inactive Lunesta 3 mg tablet RxNorm: 239756 1 Tablet(s) PO QHS No Start Date 0 09/20/2017 Inactive hydrocodone-acetaminophen 10 mg-325 mg Tab RxNorm: 6775661 1-2 Tablet(s) PO TID as needed for pain No Start Date 12/10/2011 Inactive Coricidin HBP Cough & Cold 4 mg-30 mg Tab RxNorm: 8578546 Tablet (s) PO PRN No Start Date 10/09/2010 Inactive Bactroban 2 % Ointment RxNorm: 110538 Application TOP QID to so res No Start Date 02/22/2012 Inactive Flonase 50 mcg/actuation Nasal [place] RxNorm: 865766 2 [place] QHS No Start Date 03/03/2014 Inactive Medication Administered No Medication Administered data Immunizations Vaccine Codes Date Status Tetanus, Diptheria, Pertussis CVX: 115 02/27/2014 Results Observation Observation Code Item Item Code Result Date S ervice Location [facility]PREHENS[facility] 53717 AST 15 U/L 2019 Unknown [facility] 72556 ALT 13 U/L 2019 Unknown [facility] 39604 BUN 12 mg/dL 2019 Unknown [facility] 11319 ALBUMIN 3.9 g/dL 2019 Unknown [facility] 88704 CHLORIDE 97 mmol/L 2019 Unknown COMPREHENSIVE METABOLIC 53131 Bili Total 0.4 mg/dL 09/29 Unknown COMPREHENSIVE METABOLIC 08819 ALK PHOS 130 U/L 2019 Unknown COMPREHENS[facility] MET[facility]OL[facility] 60853 SODIUM 136 mmol/L 09/29 Unknown COMPREHENSIVE METABOLIC 99033 CREATININE 0.92 mg/dL 09/11 Unknown [facility] 18584 CALCIUM 9.1 mg/dL 2019 Unknown [facility] 56404 POTASSIUM 4.4 mmol/L 09/29 Unknown [facility] METABOL[facility] 42581 Total Protein 6.2 g/dL Unknown [facility] MET[facility]OL[facility] 72490 Glucose 391 mg/dL 2019 Unknown COMPREH[facility] MET[facility]OL[facility] 49418 Bicarbonate 30 mmol/L 09/11 Unknown COMPREHENSIVE METABOLIC 24688 AGAP 9 mmol/L 2019 Unknown MEAN GLUC 8763343 Calc Mean Gluc 332 mg/dL 09/29/2019 Unkn own COMPLETE BLOOD COUNT [id number] WBC 7.0 10e9/L 09/29/19 Unknown COMPLETE BLOOD COUNT 0379708 RBC 4.69 10e12/L 2019 Unknown COMPLETE BLOOD COUNT 1560672 HEMOGLOBIN 14.6 g/dL 09/29/19 Unknown COMPLETE BLOOD COUNT 4362934 HEMATOCRIT 45.2 % 09/29/19 Unknown COMPLETE BLOOD COUNT 1039425 MCV 96.4 fL 0 Unknown COMPLETE BLOOD COUNT 6557546 MCH 31.1 pg 0 Unknown COMPLETE BLOOD COUNT 9668958 MCHC 32.3 g/dL 0 Unknown COMPLETE BLOOD COUNT 6079141 PLATELET COUNT 209 10e9/L Unknown COMPLETE BLOOD COUNT 7745385 Mean Plt Volume 9.8 fL Unknown COMPLETE BLOOD COUNT 3676708 Neut Auto 48.1 % 0 Unknown COMPLETE BLOOD COUNT 6599049 Lymph Auto 36.5 % 09/29/19 20 Unknown COMPLETE BLOOD COUNT 4904644 [place] Auto 8.6 % 0 Unknown COMPLETE BLOOD COUNT 1162413 RDW 13.4 % 0 Unknown COMPLETE BLOOD COUNT 6314045 Eos Auto 6.5 % 0 Unknown COMPLETE BLOOD COUNT 4984061 Baso Auto 0.3 % 0 Unknown COMPLETE BLOOD COUNT 7224045 Neutrophil Abs 3.37 10e9/L Unknown COMPLETE BLOOD COUNT 1644751 Lymphocyte Abs 2.56 10e9/L Unknown COMPLETE BLOOD COUNT 6963036 Monocyte Abs 0.60 10e9/L 09/11 Unknown COMPLETE BLOOD COUNT [id number] Eosinophil Abs 0.46 10e9/L Unknown COMPLETE BLOOD COUNT 6843381 RDW-SD 45.9 fL 0 Unknown COMPLETE BLOOD COUNT 8794222 Basophil Abs 0.02 10e9/L 09/11 Unknown LIPID [facility] 69312 Cholesterol 248 mg/dL 09/29/2019 Unkno wn LIPID GROUP 40257 Triglyceride 898 mg/dL 09/29/2019 Unkn own LIPID GROUP 33433 HDL CHOLESTEROL 41 mg/dL 09/29/2019 U nknown LIPID GROUP 09697 Chol/HDL Ratio 6.05 ratio 09/29/2019 U nknown LIPID GROUP 77540 NON-HDL Chol 207 mg/dL 09/29/2019 Unkn own LIPID GROUP 18428 LDL Cholesterol N/A Trig >400 020 Unknown GLYCOSYLATED HEMOGLOBIN TEST 87006 Hgb A1c 71487-1 13.2 % 0 09/29/2019 Unknown FREE T4 96601 T4 Free 0.75 ng/dL 09/29/2019 Unknown GFR CALC 0294485 GFR Non Afr Amr >60 mL/min 09/29/2019 Un known GFR CALC 1457839 GFR Afr Amr >60 mL/min 09/29/2019 Unknow n THYROID STIMULATING HORMONE 72191 TSH 4.245 uIU/mL 09/29/2019 Unknown COMPLETE BLOOD COUNT 5126665 WBC 10.7 10e9/L 018 Unknown COMPLETE BLOOD COUNT 8396403 RBC 4.59 10e12/L 2017 Unknown COMPLETE BLOOD COUNT 7400182 HEMOGLOBIN 14.8 g/dL 12/11/19 18 Unknown COMPLETE BLOOD COUNT 4875894 HEMATOCRIT 44.9 % 12/11/19 18 Unknown COMPLETE BLOOD COUNT 4949957 MCV 97.8 fL 8 Unknown COMPLETE BLOOD COUNT 9135653 MCH 32.2 pg 8 Unknown COMPLETE BLOOD COUNT 9190507 MCHC 33.0 g/dL 8 Unknown COMPLETE BLOOD COUNT 5237856 PLATELET COUNT 261 10e9/L 10/2017 Unknown COMPLETE BLOOD COUNT 5219651 Mean Plt Volume 9.5 fL 10/2017 Unknown COMPLETE BLOOD COUNT 5965384 Neut Auto 59.9 % 8 Unknown COMPLETE BLOOD COUNT 9078851 Lymph Auto 27.4 % 12/11/19 18 Unknown COMPLETE BLOOD COUNT 0044798 [place] Auto 8.2 % 8 Unknown COMPLETE BLOOD COUNT 9689024 RDW 13.3 % 8 Unknown COMPLETE BLOOD COUNT 0679791 Eos Auto 4.1 % 8 Unknown COMPLETE BLOOD COUNT 5834876 Baso Auto 0.4 % 8 Unknown COMPLETE BLOOD COUNT 8714606 Neutrophil Abs 6.41 10e9/L Unknown COMPLETE BLOOD COUNT 9471045 Lymphocyte Abs 2.93 10e9/L Unknown COMPLETE BLOOD COUNT [id number] Monocyte Abs 0.88 10e9/L 10/2017 Unknown COMPLETE BLOOD COUNT 4850576 Eosinophil Abs 0.44 10e9/L Unknown COMPLETE BLOOD COUNT 2211838 RDW-SD 46.2 fL 8 Unknown COMPLETE BLOOD COUNT 3118338 Basophil Abs 0.04 10e9/L 10/2017 Unknown THYROID STIMULATING HORMONE 92484 TSH 4.015 uIU/mL 12/10/2017 Unknown COMPREHENSIVE METABOLIC 34733 AST 25 U/L 2017 Unknown COMPREHENSIVE METABOLIC 45485 ALT 17 U/L 2017 Unknown COMPREHENSIVE METABOLIC 26967 BUN 19 mg/dL 2017 Unknown COMPREHENSIVE METABOLIC 30188 ALBUMIN 4.0 g/dL 2017 Unknown COMPREHENSIVE METABOLIC 48541 CHLORIDE 91 mmol/L 2017 Unknown COMPREHENSIVE METABOLIC 09338 Bili Total 0.5 mg/dL 12/10 Unknown COMPREHENSIVE METABOLIC 63407 ALK PHOS 75 U/L 2017 Unknown COMPREHENSIVE METABOLIC 81067 SODIUM 136 mmol/L 12/10 Unknown COMPREHENSIVE METABOLIC 31888 CREATININE 1.05 mg/dL 10/2017 Unknown COMPREHENSIVE METABOLIC 11395 CALCIUM 8.9 mg/dL 2017 Unknown COMPREHENSIVE METABOLIC 40934 POTASSIUM 3.4 mmol/L 12/10 Unknown COMPREHENSIVE METABOLIC 73253 Total Protein 6.5 g/dL Unknown COMPREHENSIVE METABOLIC 03943 Glucose 138 mg/dL 2017 Unknown COMPREHENSIVE METABOLIC 26143 Bicarbonate 35 mmol/L 10/2017 Unknown COMPREHENSIVE METABOLIC 02443 AGAP 10 mmol/L 2017 Unknown MEAN GLUC 1064253 Calc Mean Gluc 171 mg/dL 12/10/2017 Unkn own LIPID GROUP 00443 Cholesterol 204 mg/dL 12/10/2017 Unkno wn LIPID GROUP 52879 Triglyceride 411 mg/dL 12/10/2017 Unkn own L[facility] GROUP 54935 HDL CHOLESTEROL 50 mg/dL 12/10/2017 U nknown LIP[facility] GROUP 00642 Chol/HDL Ratio 4.08 ratio 12/10/2017 U nknown LIP[facility] GROUP 84420 NON-HDL Chol 154 mg/dL 12/10/2017 Unkn own LIP[facility] GROUP 23233 LDL Cholesterol N/A Trig >400 018 Unknown GLYCOSYLATED HEMOGLOBIN TEST 53491 Hgb A1c 32819-2 7.6 % 0 12/10/2017 Unknown FREE T4 28200 T4 Free 1.40 ng/dL 12/10/2017 Unknown GFR CALC 6014551 GFR Non Afr Amr 55 mL/min 12/10/2017 Unk nown GFR CALC 6788063 GFR Afr Amr >60 mL/min 12/10/2017 Unknow n GFR CALC 0729815 GFR Non Afr Amr 48 mL/min 06/28/2017 Unk nown GFR CALC 4195265 GFR Afr Amr 59 mL/min 06/28/2017 Unknown COMPREHENSIVE METABOLIC 60168 AST 32 U/L 2016 Unknown COMPREHENSIVE METABOLIC 81383 ALT 22 U/L 2016 Unknown COMPREHENSIVE METABOLIC 69419 BUN 23 mg/dL 2016 Unknown COMPREHENSIVE METABOLIC 91212 ALBUMIN 4.7 g/dL 2016 Unknown COMPREHENSIVE METABOLIC 94549 CHLORIDE 89 mmol/L 2016 Unknown COMPREHENSIVE METABOLIC 97717 Bili Total 0.5 mg/dL 06/28 Unknown COMPREHENSIVE METABOLIC 95966 ALK PHOS 90 U/L 2016 Unknown COMPREHENSIVE METABOLIC 22287 SODIUM 135 mmol/L 06/28 Unknown COMPREHENSIVE METABOLIC 83143 CREATININE 1.18 mg/dL 06/10 Unknown COMPREHENSIVE METABOLIC 80535 CALCIUM 9.7 mg/dL 2016 Unknown COMPREHENSIVE METABOLIC 34058 POTASSIUM 3.5 mmol/L 06/28 Unknown COMPREHENSIVE METABOLIC 16938 Total Protein 7.7 g/dL Unknown COMPREHENSIVE METABOLIC 89885 Glucose 129 mg/dL 2016 Unknown COMPREHENSIVE METABOLIC 88207 Bicarbonate 34 mmol/L 06/10 Unknown COMPREHENSIVE METABOLIC 15460 AGAP 12 mmol/L 2016 Unknown [facility] 99996 HDL TEST 64 MG/DL 08/27/2014 Unknown [facility] 63258 TRIG 222 MG/DL 08/27/2014 Unknown [facility] 46463 TEST LDL 209 MG/DL 08/27/2014 Unknown [facility] 83367 CHOL 317 MG/DL 08/27/2014 Unknown [facility] 93392 RCHOL/HDL 4.95 RATIO 08/27/2014 Unknow n LIP[facility] GROUP 62911 NON-HDL CH 253 MG/DL 08/27/2014 Unknow n GFR CALC 7747223 GFR AA >60 ML/MIN 08/27/2014 Unknown GFR CALC 1793452 GFR NON-AA >60 ML/MIN 08/27/2014 Unknown COMPLETE BLOOD COUNT 7543569 WBC 7.0 10e9/L 08/27/20 14 Unknown COMPLETE BLOOD COUNT 2465189 RBC 4.98 10e12/L 2013 Unknown COMPLETE BLOOD COUNT 5730173 HGB 15.6 g/dL 4 Unknown COMPLETE BLOOD COUNT 7758598 HCT DET 46.5 % 4 Unknown COMPLETE BLOOD COUNT 1430639 MCV 93.4 fL 4 Unknown COMPLETE BLOOD COUNT 9691352 MCH 31.3 pg 4 Unknown COMPLETE BLOOD COUNT 3215913 MCHC 33.5 g/dL 4 Unknown COMPLETE BLOOD COUNT 6931627 PLT 309 10e9/L 08/27/20 14 Unknown COMPLETE BLOOD COUNT 9279100 MPV 9.6 fL 4 Unknown COMPLETE BLOOD COUNT 3995246 CADEN % 57.2 % 4 Unknown COMPLETE BLOOD COUNT 5338119 LY % 33.2 % 4 Unknown COMPLETE BLOOD COUNT 3905015 MON % 7.3 % 4 Unknown COMPLETE BLOOD COUNT 8129141 EOS % 2.0 % 4 Unknown COMPLETE BLOOD COUNT 4017557 BASO % 0.3 % 4 Unknown COMPLETE BLOOD COUNT 2762315 RDW 13.7 % 4 Unknown COMPLETE BLOOD COUNT [id number] ABS CADEN 4.00 10e9/L 014 Unknown COMPLETE BLOOD COUNT 8099039 ABS LYMPH 2.32 10e9/L 014 Unknown COMPLETE BLOOD COUNT 3770328 ABS MONO 0.51 10e9/L 014 Unknown COMPLETE BLOOD COUNT 2178415 ABS EOS 0.14 10e9/L 014 Unknown COMPLETE BLOOD COUNT 0557447 ABS BASO 0.02 10e9/L 014 Unknown COMPLETE BLOOD COUNT 8651441 RDW-SD 45.1 fL 4 Unknown COMPREHENSIVE METABOLIC 08667 AST 13 U/L 2013 Unknown COMPREHENSIVE METABOLIC 02764 ALT 11 IU/L 2013 Unknown COMPREHENSIVE METABOLIC 93950 BUN 23 MG/DL 2013 Unknown COMPREHENSIVE METABOLIC 38396 ALBUMIN 4.4 GM/DL 2013 Unknown COMPREHENSIVE METABOLIC 95852 CHLORIDE 99 MMOL/L 2013 Unknown COMPREHENSIVE METABOLIC 73156 BILI TOT 0.5 MG/DL 2013 Unknown COMPREHENSIVE METABOLIC 69290 ALK PHOS 56 U/L 2013 Unknown COMPREHENSIVE METABOLIC 50413 SODIUM 138 MMOL/L 08/27 Unknown COMPREHENSIVE METABOLIC 55811 CREATININE 0.95 MG/DL 08/10 Unknown COMPREHENSIVE METABOLIC 59557 CALCIUM 9.8 MG/DL 2013 Unknown COMPREHENSIVE METABOLIC 18361 POTASSIUM 3.5 MMOL/L 08/27 Unknown COMPREHENSIVE METABOLIC 93367 PROT TOT 6.8 GM/DL 2013 Unknown COMPREHENSIVE METABOLIC 02326 Glucose 90 MG/DL 2013 Unknown COMPREHENSIVE METABOLIC 11196 BICARB 34 MMOL/L 2013 Unknown COMPREHENSIVE METABOLIC 42732 ANION GAP 5 MEQ/L 2013 Unknown LIPASE 85876 LIPASE 11 IU/L 07/21/2014 Unknown AMYLASE 16440 AMYLASE 39 IU/L 07/21/2014 Unknown HEMOGLOBIN A1C (GLYCOSYLATED) 6487926 A1C HPLC 40107-8 6.2 % 03/05/2013 Unknown THYROID STIMULATING HORMONE 71827 TSH 6.986 uIU/ML 03/05/2013 Unknown COMPLETE BLOOD COUNT 1670199 WBC 12.7 10e9/L 013 Unknown COMPLETE BLOOD COUNT [id number] RBC 4.53 10e12/L 2012 Unknown COMPLETE BLOOD COUNT 0497384 HGB 14.7 g/dL 3 Unknown COMPLETE BLOOD COUNT 3792261 HCT DET 43.1 % 3 Unknown COMPLETE BLOOD COUNT 3106136 MCV 95.1 fL 3 Unknown COMPLETE BLOOD COUNT 5033379 MCH 32.5 pg 3 Unknown COMPLETE BLOOD COUNT 9630401 MCHC 34.1 g/dL 3 Unknown COMPLETE BLOOD COUNT 8110652 PLT 346 10e9/L 03/05/20 13 Unknown COMPLETE BLOOD COUNT 8656814 MPV 9.5 fL 3 Unknown COMPLETE BLOOD COUNT 1984876 CADEN % 67.6 % 3 Unknown COMPLETE BLOOD COUNT 0961611 LY % 22.1 % 3 Unknown COMPLETE BLOOD COUNT 9932508 MON % 6.6 % 3 Unknown COMPLETE BLOOD COUNT 0702513 EOS % 3.3 % 3 Unknown COMPLETE BLOOD COUNT 5684369 BASO % 0.4 % 3 Unknown COMPLETE BLOOD COUNT 4344273 RDW 14.0 % 3 Unknown COMPLETE BLOOD COUNT 2215626 ABS CADEN 8.59 10e9/L 013 Unknown COMPLETE BLOOD COUNT 5404963 ABS LYMPH 2.81 10e9/L 013 Unknown COMPLETE BLOOD COUNT 9571513 ABS MONO 0.84 10e9/L 013 Unknown COMPLETE BLOOD COUNT [id number] ABS EOS 0.42 10e9/L 013 Unknown COMPLETE BLOOD COUNT 4866732 ABS BASO 0.05 10e9/L 013 Unknown COMPLETE BLOOD COUNT 5970953 RDW-SD 46.0 fL 3 Unknown FREE T4 22841 FREE T4 1.14 NG/DL 03/05/2013 Unknown COMPREHENSIVE METABOLIC 49958 AST 17 U/L 2012 Unknown COMPREHENSIVE METABOLIC 10432 ALT 12 IU/L 2012 Unknown COMPREHENSIVE METABOLIC 57945 BUN 24 MG/DL 2012 Unknown COMPREHENSIVE METABOLIC 77660 ALBUMIN 4.2 GM/DL 2012 Unknown COMPREHENSIVE METABOLIC 55824 CHLORIDE 93 MMOL/L 2012 Unknown COMPREHENSIVE METABOLIC 83409 BILI TOT 0.5 MG/DL 2012 Unknown COMPREHENSIVE METABOLIC 07229 ALK PHOS 75 U/L 2012 Unknown COMPREHENSIVE METABOLIC 86068 SODIUM 141 MMOL/L 03/05 Unknown COMPREHENSIVE METABOLIC 08722 CREATININE 1.36 MG/DL 02/09 Unknown COMPREHENSIVE METABOLIC 94736 CALCIUM 9.2 MG/DL 2012 Unknown COMPREHENSIVE METABOLIC 49574 POTASSIUM 3.1 MMOL/L 03/05 Unknown COMPREHENSIVE METABOLIC 32273 PROT TOT 6.9 GM/DL 2012 Unknown COMPREHENSIVE METABOLIC 95984 Glucose 123 MG/DL 2012 Unknown COMPREHENSIVE METABOLIC 95502 BICARB 36 MMOL/L 2012 Unknown COMPREHENSIVE METABOLIC 10913 ANION GAP 12 MEQ/L 2012 Unknown GFR CALC 1588709 GFR AA 51.0L ML/MIN 03/05/2013 Unknow n GFR CALC 3500444 GFR NON-AA 42.0L ML/MIN 03/05/2013 Unkno wn COMPREHENSIVE METABOLIC 12610 AST 14 U/L 2012 Unknown COMPREHENSIVE METABOLIC 81854 ALT 11 IU/L 2012 Unknown COMPREHENSIVE METABOLIC 02011 BUN 16 MG/DL 2012 Unknown COMPREHENSIVE METABOLIC 64969 ALBUMIN 4.2 GM/DL 2012 Unknown COMPREHENSIVE METABOLIC 22833 CHLORIDE 98 MMOL/L 2012 Unknown COMPREHENSIVE METABOLIC 22181 BILI TOT 0.4 MG/DL 2012 Unknown COMPREHENSIVE METABOLIC 84219 ALK PHOS 77 U/L 2012 Unknown COMPREHENSIVE METABOLIC 95522 SODIUM 139 MMOL/L 09/25 Unknown COMPREHENSIVE METABOLIC 45415 CREATININE 0.86 MG/DL 09/10 Unknown COMPREHENSIVE METABOLIC 88202 CALCIUM 9.5 MG/DL 2012 Unknown COMPREHENSIVE METABOLIC 37001 POTASSIUM 3.8 MMOL/L 09/25 Unknown COMPREHENSIVE METABOLIC 85215 PROT TOT 6.8 GM/DL 2012 Unknown COMPREHENSIVE METABOLIC 54321 Glucose 91 MG/DL 2012 Unknown COMPREHENSIVE METABOLIC 04327 BICARB 32 MMOL/L 2012 Unknown COMPREHENSIVE METABOLIC 03564 ANION GAP 9 MEQ/L 2012 Unknown FREE T4 97668 FREE T4 0.98 NG/DL 09/25/2012 Unknown THYROID STIMULATING HORMONE 19818 TSH 1.736 uIU/ML 09/25/2012 Unknown C-REACTIVE PROTEIN (CRP) QUANT 15461 CRP 2.3 MG/DL 09/25/2012 Unknown COMPLETE BLOOD COUNT 7553448 WBC 11.9 10e9/L 013 Unknown COMPLETE BLOOD COUNT 5592440 RBC 4.87 10e12/L 2012 Unknown COMPLETE BLOOD COUNT 1694908 HGB 15.1 g/dL 3 Unknown COMPLETE BLOOD COUNT 5047943 HCT DET 44.8 % 3 Unknown COMPLETE BLOOD COUNT 1883457 MCV 92.0 fL 3 Unknown COMPLETE BLOOD COUNT 1615611 MCH 31.0 pg 3 Unknown COMPLETE BLOOD COUNT 4222827 MCHC 33.7 g/dL 3 Unknown COMPLETE BLOOD COUNT 6176999 PLT 343 10e9/L 09/25/19 13 Unknown COMPLETE BLOOD COUNT 8936114 MPV 9.0 fL 3 Unknown COMPLETE BLOOD COUNT 1719598 CADEN % 68.2 % 3 Unknown COMPLETE BLOOD COUNT 1396022 LY % 22.4 % 3 Unknown COMPLETE BLOOD COUNT 4193652 MON % 6.4 % 3 Unknown COMPLETE BLOOD COUNT 3914993 EOS % 2.7 % 3 Unknown COMPLETE BLOOD COUNT 7311762 BASO % 0.3 % 3 Unknown COMPLETE BLOOD COUNT 2579487 RDW 13.8 % 3 Unknown COMPLETE BLOOD COUNT 2745910 ABS CADEN 8.12 10e9/L 013 Unknown COMPLETE BLOOD COUNT 4433696 ABS LYMPH 2.67 10e9/L 013 Unknown COMPLETE BLOOD COUNT 5664480 ABS MONO 0.76 10e9/L 013 Unknown COMPLETE BLOOD COUNT 3972984 ABS EOS 0.32 10e9/L 013 Unknown COMPLETE BLOOD COUNT 1543580 ABS BASO 0.04 10e9/L 013 Unknown COMPLETE BLOOD COUNT 3976088 RDW-SD 45.6 fL 3 Unknown GFR CALC 1535295 GFR AA >60 ML/MIN 09/25/2012 Unknown GFR CALC 1598353 GFR NON-AA >60 ML/MIN 09/25/2012 Unknown ERYTHROCYTE SEDIMENTATION RATE 07926 ESR 19 MM/HR 05/06/2012 Unknown VITAMIN B 12 FOLIC ACID 06576|23995 VIT B 12 922 PG/ML 04/11 Unknown VITAMIN B 12 FOLIC ACID 46102|54734 FOLIC ACID 13.6 NG/ML Unknown URIC ACID 48607 URIC ACID 7.8 MG/DL 05/06/2012 Unknown COMPLETE BLOOD COUNT 90341 WBC 11.9 10e9/L 012 Unknown COMPLETE BLOOD COUNT 41412 RBC 5.30 10e12/L 2011 Unknown COMPLETE BLOOD COUNT 08512 HGB 16.6 g/dL 2 Unknown COMPLETE BLOOD COUNT 46627 HCT DET 47.2 % 2 Unknown COMPLETE BLOOD COUNT 00353 MCV 89.1 fL 2 Unknown COMPLETE BLOOD COUNT 76497 MCH 31.3 pg 2 Unknown COMPLETE BLOOD COUNT 95823 MCHC 35.2 g/dL 2 Unknown COMPLETE BLOOD COUNT 48110 PLT 362 10e9/L 05/06/20 12 Unknown COMPLETE BLOOD COUNT 21481 MPV 9.4 fL 2 Unknown COMPLETE BLOOD COUNT 47585 CADEN % 68.2 % 2 Unknown COMPLETE BLOOD COUNT 70496 LY % 22.0 % 2 Unknown COMPLETE BLOOD COUNT 81418 MON % 6.9 % 2 Unknown COMPLETE BLOOD COUNT 23292 EOS % 2.6 % 2 Unknown COMPLETE BLOOD COUNT 98515 BASO % 0.3 % 2 Unknown COMPLETE BLOOD COUNT 80914 RDW 12.8 % 2 Unknown COMPLETE BLOOD COUNT 25671 ABS CADEN 8.12 10e9/L 012 Unknown COMPLETE BLOOD COUNT 59769 ABS LYMPH 2.62 10e9/L 012 Unknown COMPLETE BLOOD COUNT 41020 ABS MONO 0.82 10e9/L 012 Unknown COMPLETE BLOOD COUNT 56118 ABS EOS 0.31 10e9/L 012 Unknown COMPLETE BLOOD COUNT 26496 ABS BASO 0.04 10e9/L 012 Unknown COMPLETE BLOOD COUNT 21105 RDW-SD 41.5 fL 2 Unknown GFR CALC 9061915 GFR AA >60 ML/MIN 05/06/2012 Unknown GFR CALC 8342226 GFR NON-AA 58.0L ML/MIN 05/06/2012 Unkno wn FREE T4 70116 FREE T4 1.15 NG/DL 05/06/2012 Unknown THYROID STIMULATING HORMONE 26459 TSH 1.568 uIU/ML 05/06/2012 Unknown COMPREHENSIVE METABOLIC 78776 AST 20 U/L 2011 Unknown COMPREHENSIVE METABOLIC 14456 ALT 12 IU/L 2011 Unknown COMPREHENSIVE METABOLIC 62264 BUN 20 MG/DL 2011 Unknown COMPREHENSIVE METABOLIC 40934 ALBUMIN 4.5 GM/DL 2011 Unknown COMPREHENSIVE METABOLIC 30907 CHLORIDE 91 MMOL/L 2011 Unknown COMPREHENSIVE METABOLIC 56702 BILI TOT 0.4 MG/DL 2011 Unknown COMPREHENSIVE METABOLIC 37102 ALK PHOS 73 U/L 2011 Unknown COMPREHENSIVE METABOLIC 51983 SODIUM 139 MMOL/L 05/06 Unknown COMPREHENSIVE METABOLIC 28370 CREATININE 1.02 MG/DL 04/11 Unknown COMPREHENSIVE METABOLIC 27287 CALCIUM 9.7 MG/DL 2011 Unknown COMPREHENSIVE METABOLIC 90974 POTASSIUM 3.1 MMOL/L 05/06 Unknown COMPREHENSIVE METABOLIC 33953 PROT TOT 7.3 GM/DL 2011 Unknown COMPREHENSIVE METABOLIC 92938 Glucose 118 MG/DL 2011 Unknown COMPREHENSIVE METABOLIC 18330 BICARB 33 MMOL/L 2011 Unknown COMPREHENSIVE METABOLIC 33214 ANION GAP 15 MEQ/L 2011 Unknown Procedures Procedure Codes Date ROUTINE VENIPUNCTURE CPT-4: 38751 09/29/2019 URINALYSIS NONAUTO W/O SCOPE CPT-4: 70804 09/29/2019 COMPREHEN METABOLIC PANEL CPT-4: 05074 09/29/2019 LIPID PANEL CPT-4: 89413 09/29/2019 A1C HPLC CPT-4: 24053 09/29/2019 ASSAY OF FREE THYROXINE CPT-4: 18209 09/29/2019 ASSAY THYROID STIM HORMONE CPT-4: 02451 09/29/2019 COMPLETE CBC W/AUTO DIFF WBC CPT-4: 94764 09/29/2019 URINALYSIS NONAUTO W/O SCOPE CPT-4: 24091 09/30/2018 MICROALBUMIN QUANTITATIVE CPT-4: 40081 09/30/2018 CEFTRIAXONE SODIUM INJECTION CPT-4: J0696 06/19/2018 THER/PROPH/DIAG INJ SC/IM CPT-4: 63272 06/19/2018 CEFTRIAXONE SODIUM INJECTION CPT-4: J0696 06/17/2018 THER/PROPH/DIAG INJ SC/IM CPT-4: 98618 06/17/2018 THER/PROPH/DIAG INJ SC/IM CPT-4: 65523 05/16/2018 KETOROLAC TROMETHAMINE INJ CPT-4: J1885 05/16/2018 ONDANSETRON HCL INJECTION CPT-4: J2405 05/16/2018 THER/PROPH/DIAG INJ SC/IM CPT-4: 64613 05/16/2018 ROUTINE VENIPUNCTURE CPT-4: 32945 03/20/2018 COMPREHEN METABOLIC PANEL CPT-4: 47228 03/20/2018 DEXAMETHASONE SODIUM PHOS CPT-4: J1100 02/11/2018 THER/PROPH/DIAG INJ SC/IM CPT-4: 02178 02/11/2018 TRIAMCINOLONE ACET INJ NOS CPT-4: J3301 02/11/2018 CEFTRIAXONE SODIUM INJECTION CPT-4: J0696 02/01/2018 THER/PROPH/DIAG INJ SC/IM CPT-4: 89398 02/01/2018 CEFTRIAXONE SODIUM INJECTION CPT-4: J0696 01/30/2018 THER/PROPH/DIAG INJ SC/IM CPT-4: 50164 01/30/2018 ROUTINE VENIPUNCTURE CPT-4: 50465 12/10/2017 ASSAY OF FREE THYROXINE CPT-4: 20035 12/10/2017 ASSAY THYROID STIM HORMONE CPT-4: 72214 12/10/2017 COMPREHEN METABOLIC PANEL CPT-4: 80613 12/10/2017 COMPLETE CBC W/AUTO DIFF WBC CPT-4: 62917 12/10/2017 LIPID PANEL CPT-4: 50444 12/10/2017 A1C HPLC CPT-4: 53053 12/10/2017 CEFTRIAXONE SODIUM INJECTION CPT-4: J0696 12/10/2017 THER/PROPH/DIAG INJ SC/IM CPT-4: 40309 12/10/2017 CEFTRIAXONE SODIUM INJECTION CPT-4: J0696 12/07/2017 THER/PROPH/DIAG INJ SC/IM CPT-4: 10929 12/07/2017 DEXAMETHASONE SODIUM PHOS CPT-4: J1100 12/07/2017 THER/PROPH/DIAG INJ SC/IM CPT-4: 89163 12/07/2017 CEFTRIAXONE SODIUM INJECTION CPT-4: J0696 10/08/2017 THER/PROPH/DIAG INJ SC/IM CPT-4: 44317 10/08/2017 CEFTRIAXONE SODIUM INJECTION CPT-4: J0696 09/21/2017 THER/PROPH/DIAG INJ SC/IM CPT-4: 14647 09/21/2017 CEFTRIAXONE SODIUM INJECTION CPT-4: J0696 09/20/2017 THER/PROPH/DIAG INJ SC/IM CPT-4: 25162 09/20/2017 REMOVAL OF NAIL PLATE CPT-4: 47777 08/29/2017 THER/PROPH/DIAG INJ SC/IM CPT-4: 98721 08/29/2017 TRIAMCINOLONE ACET INJ NOS CPT-4: J3301 08/29/2017 CEFTRIAXONE SODIUM INJECTION CPT-4: J0696 08/29/2017 THER/PROPH/DIAG INJ SC/IM CPT-4: 14478 08/29/2017 DESTRUCT PREMALG LESION (Cryosurgery) CPT-4: 75095 ROUTINE VENIPUNCTURE CPT-4: 58649 06/27/2017 ASSAY OF FREE THYROXINE CPT-4: 42256 06/27/2017 ASSAY THYROID STIM HORMONE CPT-4: 28354 06/27/2017 COMPREHEN METABOLIC PANEL CPT-4: 25589 06/27/2017 COMPLETE CBC W/AUTO DIFF WBC CPT-4: 42096 06/27/2017 EXC TR-EXT B9+REECE 0.5 CM< CPT-4: 34443 01/24/2017 THER/PROPH/DIAG INJ SC/IM CPT-4: 62949 08/02/2016 DEXAMETHASONE SODIUM PHOS CPT-4: J1100 08/02/2016 DESTRUCT PREMALG LESION (Cryosurgery) CPT-4: 20166 EXC TR-EXT B9+REECE 0.5 CM< CPT-4: 04772 08/01/2016 AEROBIC WOUND CULTURE & STN CPT-4: 80000 07/06/2016 CEFTRIAXONE SODIUM INJECTION CPT-4: J0696 05/25/2016 THER/PROPH/DIAG INJ SC/IM CPT-4: 07196 05/25/2016 THER/PROPH/DIAG INJ SC/IM CPT-4: 99867 04/26/2016 DEXAMETHASONE SODIUM PHOS CPT-4: J1100 04/26/2016 CEFTRIAXONE SODIUM INJECTION CPT-4: J0696 04/26/2016 THER/PROPH/DIAG INJ SC/IM CPT-4: 62238 04/26/2016 THER/PROPH/DIAG INJ SC/IM CPT-4: 10553 02/09/2016 TRIAMCINOLONE ACET INJ NOS CPT-4: J3301 02/09/2016 URINALYSIS NONAUTO W/O SCOPE CPT-4: 77395 01/24/2016 URINE CULTURE/ COLONY COUNT CPT-4: 56893 01/24/2016 THER/PROPH/DIAG INJ SC/IM CPT-4: 84440 12/08/2015 TRIAMCINOLONE ACET INJ NOS CPT-4: J3301 12/08/2015 THER/PROPH/DIAG INJ SC/IM CPT-4: [address] 10/07/2015 TRIAMCINOLONE ACET INJ NOS CPT-4: J3301 10/07/2015 DESTRUCT PREMALG LESION (Cryosurgery) CPT-4: 59510 THER/PROPH/DIAG INJ SC/IM CPT-4: 51616 03/16/2015 METHYLPREDNISOLONE 40 MG INJ CPT-4: J1030 03/16/2015 DESTRUCT PREMALG LESION (Cryosurgery) CPT-4: 05769 THER/PROPH/DIAG INJ SC/IM CPT-4: 19570 09/11/2014 METHYLPREDNISOLONE 40 MG INJ CPT-4: J1030 09/11/2014 TRIAMCINOLONE ACET INJ NOS CPT-4: J3301 09/11/2014 CEFTRIAXONE SODIUM INJECTION CPT-4: J0696 09/11/2014 THER/PROPH/DIAG INJ SC/IM CPT-4: 72054 09/11/2014 ROUTINE VENIPUNCTURE CPT-4: 19533 08/27/2014 COMPREHEN METABOLIC PANEL CPT-4: 07445 08/27/2014 COMPLETE CBC W/AUTO DIFF WBC CPT-4: 13008 08/27/2014 LIPID PANEL CPT-4: 33259 08/27/2014 ROUTINE VENIPUNCTURE CPT-4: 43925 07/21/2014 ASSAY OF AMYLASE CPT-4: 62642 07/21/2014 ASSAY OF LIPASE CPT-4: 07905 07/21/2014 THER/PROPH/DIAG INJ SC/IM CPT-4: 01597 07/15/2014 TRIAMCINOLONE ACET INJ NOS CPT-4: J3301 07/15/2014 ROUTINE VENIPUNCTURE CPT-4: 65851 05/14/2014 ASSAY OF FREE THYROXINE CPT-4: 67833 05/14/2014 ASSAY THYROID STIM HORMONE CPT-4: 64612 05/14/2014 COMPREHEN METABOLIC PANEL CPT-4: 06804 05/14/2014 COMPLETE CBC W/AUTO DIFF WBC CPT-4: 84385 05/14/2014 LIPID PANEL CPT-4: 09606 05/14/2014 CEFTRIAXONE SODIUM INJECTION CPT-4: J0696 04/21/2014 THER/PROPH/DIAG INJ SC/IM CPT-4: 85922 04/21/2014 THER/PROPH/DIAG INJ SC/IM CPT-4: 34445 04/21/2014 TRIAMCINOLONE ACET INJ NOS CPT-4: J3301 04/21/2014 THER/PROPH/DIAG INJ SC/IM CPT-4: 83413 03/04/2014 METHYLPREDNISOLONE 40 MG INJ CPT-4: J1030 03/04/2014 TRIAMCINOLONE ACET INJ NOS CPT-4: J3301 03/04/2014 CEFTRIAXONE SODIUM INJECTION CPT-4: J0696 03/04/2014 THER/PROPH/DIAG INJ SC/IM CPT-4: 39810 03/04/2014 TDAP VACCINE 7 YRS/> IM CPT-4: 62303 02/27/2014 IMMUNIZATION ADMIN CPT-4: 13304 02/27/2014 DESTRUCT PREMALG LESION (Cryosurgery) CPT-4: 17017 DESTRUCT PREMALG LES 2-14 CPT-4: 01335 01/13/2014 THER/PROPH/DIAG INJ SC/IM CPT-4: 44957 10/21/2013 METHYLPREDNISOLONE 40 MG INJ CPT-4: J1030 10/21/2013 TRIAMCINOLONE ACET INJ NOS CPT-4: J3301 10/21/2013 CEFTRIAXONE SODIUM INJECTION CPT-4: J0696 08/27/2013 THER/PROPH/DIAG INJ SC/IM CPT-4: 46609 08/27/2013 THER/PROPH/DIAG INJ SC/IM CPT-4: 03716 08/27/2013 METHYLPREDNISOLONE 40 MG INJ CPT-4: J1030 08/27/2013 TRIAMCINOLONE ACET INJ NOS CPT-4: J3301 08/27/2013 THER/PROPH/DIAG INJ SC/IM CPT-4: 10810 06/23/2013 METHYLPREDNISOLONE 40 MG INJ CPT-4: J1030 06/23/2013 TRIAMCINOLONE ACET INJ NOS CPT-4: J3301 06/23/2013 THER/PROPH/DIAG INJ SC/IM CPT-4: 99782 05/26/2013 METHYLPREDNISOLONE 40 MG INJ CPT-4: J1030 05/26/2013 TRIAMCINOLONE ACET INJ NOS CPT-4: J3301 05/26/2013 ROUTINE VENIPUNCTURE CPT-4: 18538 03/05/2013 ASSAY OF FREE THYROXINE CPT-4: 07855 03/05/2013 ASSAY THYROID STIM HORMONE CPT-4: 97500 03/05/2013 COMPREHEN METABOLIC PANEL CPT-4: 82198 03/05/2013 COMPLETE CBC W/AUTO DIFF WBC CPT-4: 68931 03/05/2013 A1C GLYCOSYLATED HEMOGLOBIN TEST CPT-4: 58827 013 DRAIN/INJECT JOINT/BURSA CPT-4: 57539 12/04/2012 METHYLPREDNISOLONE 40 MG INJ CPT-4: J1030 12/04/2012 TRIAMCINOLONE ACET INJ NOS CPT-4: J3301 12/04/2012 CEFTRIAXONE SODIUM INJECTION CPT-4: J0696 11/21/2012 THER/PROPH/DIAG INJ SC/IM CPT-4: 27874 11/21/2012 THER/PROPH/DIAG INJ SC/IM CPT-4: 79640 10/14/2012 METHYLPREDNISOLONE 40 MG INJ CPT-4: J1030 10/14/2012 TRIAMCINOLONE ACET INJ NOS CPT-4: J3301 10/14/2012 URINALYSIS NONAUTO W/O SCOPE CPT-4: 26067 09/27/2012 ROUTINE VENIPUNCTURE CPT-4: 26093 09/25/2012 ASSAY OF FREE THYROXINE CPT-4: 06947 09/25/2012 ASSAY THYROID STIM HORMONE CPT-4: 85479 09/25/2012 COMPREHEN METABOLIC PANEL CPT-4: 74357 09/25/2012 COMPLETE CBC W/AUTO DIFF WBC CPT-4: 63260 09/25/2012 C-REACTIVE PROTEIN CPT-4: 72058 09/25/2012 THER/PROPH/DIAG INJ SC/IM CPT-4: 08228 08/29/2012 METHYLPREDNISOLONE 40 MG INJ CPT-4: J1030 08/29/2012 TRIAMCINOLONE ACET INJ NOS CPT-4: J3301 08/29/2012 DESTRUCT PREMALG LESION (Cryosurgery) CPT-4: 47577 THER/PROPH/DIAG INJ SC/IM CPT-4: 57516 05/06/2012 METHYLPREDNISOLONE 40 MG INJ CPT-4: J1030 05/06/2012 TRIAMCINOLONE ACET INJ NOS CPT-4: J3301 05/06/2012 VITAMIN B 12 FOLIC ACID CPT-4: 13165|45194 05/06/2012 RBC SED RATE AUTOMATED CPT-4: 57842 05/06/2012 ROUTINE VENIPUNCTURE CPT-4: 89272 05/06/2012 ASSAY OF FREE THYROXINE CPT-4: 50048 05/06/2012 ASSAY THYROID STIM HORMONE CPT-4: 22678 05/06/2012 COMPREHEN METABOLIC PANEL CPT-4: 95123 05/06/2012 COMPLETE CBC W/AUTO DIFF WBC CPT-4: 41647 05/06/2012 ASSAY OF BLOOD/URIC ACID CPT-4: 81501 05/06/2012 THER/PROPH/DIAG INJ SC/IM CPT-4: 82694 03/19/2012 KETOROLAC TROMETHAMINE INJ CPT-4: J1885 03/19/2012 KETOROLAC TROMETHAMINE INJ CPT-4: J1885 01/30/2012 THER/PROPH/DIAG INJ SC/IM CPT-4: 27589 01/30/2012 PROMETHAZINE HCL INJECTION CPT-4: J2550 01/30/2012 THER/PROPH/DIAG INJ SC/IM CPT-4: 10487 01/24/2012 METHYLPREDNISOLONE 40 MG INJ CPT-4: J1030 01/24/2012 TRIAMCINOLONE ACET INJ NOS CPT-4: J3301 01/24/2012 THER/PROPH/DIAG INJ SC/IM CPT-4: 86266 09/13/2011 KETOROLAC TROMETHAMINE INJ CPT-4: J1885 09/13/2011 THER/PROPH/DIAG INJ SC/IM CPT-4: 15993 09/13/2011 PROMETHAZINE HCL INJECTION CPT-4: J2550 09/13/2011 CEFTRIAXONE SODIUM INJECTION CPT-4: J0696 07/20/2011 THER/PROPH/DIAG INJ SC/IM CPT-4: 05369 07/20/2011 THER/PROPH/DIAG INJ SC/IM CPT-4: 83286 07/20/2011 METHYLPREDNISOLONE INJECTION CPT-4: J2930 07/20/2011 URINALYSIS NONAUTO W/O SCOPE CPT-4: 65374 05/09/2011 CEFTRIAXONE SODIUM INJECTION CPT-4: J0696 05/09/2011 THER/PROPH/DIAG INJ SC/IM CPT-4: 73320 05/09/2011 THER/PROPH/DIAG INJ SC/IM CPT-4: 84344 05/09/2011 PROMETHAZINE HCL INJECTION CPT-4: J2550 05/09/2011 HYDRATION IV INFUSION INIT CPT-4: 98357 05/09/2011 DESTRUCT PREMALG LESION (Cryosurgery) CPT-4: 16832 DESTRUCT PREMALG LES 2-14 CPT-4: 78954 07/19/2010 REMOVAL OF SKIN TAGS <W/15 CPT-4: 47951 05/30/2010 THER/PROPH/DIAG INJ SC/IM CPT-4: 56846 04/05/2010 CEFTRIAXONE SODIUM INJECTION CPT-4: J0696 04/05/2010 TRIAMCINOLONE ACET INJ NOS CPT-4: J3301 04/05/2010 METHYLPREDNISOLONE 40 MG INJ CPT-4: J1030 04/05/2010 THER/PROPH/DIAG INJ SC/IM CPT-4: 48824 04/05/2010 TRIAMCINOLONE ACET INJ NOS CPT-4: J3301 03/09/2010 METHYLPREDNISOLONE 40 MG INJ CPT-4: J1030 03/09/2010 THER/PROPH/DIAG INJ SC/IM CPT-4: 01581 03/09/2010 THER/PROPH/DIAG INJ SC/IM CPT-4: 83266 03/09/2010 CEFTRIAXONE SODIUM INJECTION CPT-4: J0696 03/09/2010 Vital Signs Date Vital 09/30/2019 Blood Pressure 1: 132/80 Code: 8480-6 BMI: 35.8 Code: 98393-0 Heart Rate 1: 88 bpm Height: 5'4" Respiratory Rate: 20 bpm SpO2: 95% Tempera ture: 36.9 (C) / 98.5 (F) Weight: 210 lbs 05/28/2019 Blood Pressure 1: 126/82 Code: 8480-6 BMI: 35.0 Code: 43992-5 Heart Rate 1: 88 bpm Height: 5'4" [...] 1: 128/90 Code: 8480-6 BMI: 37.2 Code: 26432-8 Heart Rate 1: 84 bpm Height: 5'4" Respiratory Rate: 20 bpm SpO2: 95% Tempera ture: 36.6 (C) / 97.8 (F) Weight: 217 lbs 08/27/2018 Blood Pressure 1: 128/88 Code: 8480-6 BMI: 38.3 Code: 59635-3 Heart Rate 1: 84 bpm Height: 5'4" [...] 1: 119/72 Code: 8480-6 BMI: 37.4 Code: 81797-0 Heart Rate 1: 82 bpm Height: 5'4" Respiratory Rate: 12 bpm SpO2: 94% Tempera ture: 35.2 (C) / 95.4 (F) Weight: 218 lbs 12/18/2017 Blood Pressure 1: 128/86 Code: 8480-6 BMI: 37.8 Code: 38925-6 Heart Rate 1: 84 bpm Height: 5'4" [...] 1: 128/82 Code: 8480-6 BMI: 35.5 Code: 23265-4 Heart Rate 1: 84 bpm Height: 5'4" [...] 1: 128/82 Code: 8480-6 BMI: 30.2 Code: 66474-7 Heart Rate 1: 80 bpm Height: 5'4" [...] 1: 128/86 Code: 8480-6 BMI: 32.8 Code: 85112-3 Heart Rate 1: 66 bpm Height: 5'4" Respiratory Rate: 18 bpm Temperature: 36 .3 (C) / 97.3 (F) Weight: 191 lbs 06/23/2013 Blood Pressure 1: 132/94 Code: 8480-6 BMI: 34.0 Code: 07886-7 Heart Rate 1: 84 bpm Height: 5'4" Respiratory Rate: 20 bpm Temperature: 36 .8 (C) / 98.2 (F) Weight: 198 lbs 05/26/2013 Blood Pressure 1: 114/80 Code: 8480-6 BMI: 35.0 Code: 97218-6 Heart Rate 1: 80 bpm Height: 5'4" Respiratory Rate: 20 bpm Temperature: 36 .4 (C) / 97.6 (F) Weight: 204 lbs 04/16/2013 Blood Pressure 1: 114/82 Code: 8480-6 BMI: 36.7 Code: 58403-7 Heart Rate 1: 84 bpm Height: 5'4" Respiratory Rate: 20 bpm Temperature: 36 .7 (C) / 98.0 (F) Weight: 214 lbs 03/05/2013 Blood Pressure 1: 136/90 Code: 8480-6 BMI: 37.1 Code: 65173-9 Heart Rate 1: 84 bpm Height: 5'4" [...] 1: 168/114 Code: 8480-6 BMI: 36.2 Code: 63970-2 Heart Rate 1: 104 bpm Height: 5'4" Respiratory Rate: 20 bpm Temperature: 36 .8 (C) / 98.2 (F) Weight: 211 lbs 11/22/2012 Blood Pressure 1: 128/90 Code: 8480-6 Heart Rate 1: 88 bpm Respiratory Rate: 20 bpm SpO2: 96% Temperature: 36.8 (C) / 98.2 (F) 11/21/2012 Blood Pressure 1: 146/100 Code: 8480-6 BMI: 35.7 Code: 45720-7 Heart Rate 1: 96 bpm Height: 5'4" [...] 1: 138/100 Code: 8480-6 BMI: 35.7 Code: 44773-5 Heart Rate 1: 96 bpm Height: 5'4" Respiratory Rate: 20 bpm Temperature: 36 .8 (C) / 98.2 (F) Weight: 208 lbs 05/06/2012 Blood Pressure 1: 154/102 Code: 8480-6 BMI: 34.7 Code: 60950-6 Heart Rate 1: 116 bpm Height: 5'4" Respiratory Rate: 20 bpm Temperature: 36 .8 (C) / 98.2 (F) Weight: 202 lbs 04/03/2012 Blood Pressure 1: 134/94 Code: 8480-6 BMI: 34.8 Code: 24923-9 Heart Rate 1: 108 bpm Height: 5'4" Respiratory Rate: 20 bpm Temperature: 36 .8 (C) / 98.2 (F) Weight: 203 lbs 03/19/2012 Blood Pressure 1: 148/106 Code: 8480-6 BMI: 35.0 Code: 98193-5 Heart Rate 1: 100 bpm Height: 5'4" Respiratory Rate: 20 bpm Temperature: 36 .6 (C) / 97.9 (F) Weight: 204 lbs 02/22/2012 Blood Pressure 1: 146/94 Code: 8480-6 He art Rate 1: 88 bpm 02/21/2012 Blood Pressure 1: 172/120 Code: 8480-6 B lood Pressure 2: 152/106 Code: 8480-6 Heart Rate 1: 116 bpm 02/20/2012 Blood Pressure 1: 160/100 Code: 8480-6 BMI: 32.0 Code: 89138-8 Heart Rate 1: 84 bpm Height: 5'7" Temperature: 36.5 (C) / 97.7 (F) Weight: 204 lbs 01/30/2012 Blood Pressure 1: 152/110 Code: 8480-6 BMI: 32.0 Code: 46569-9 Heart Rate 1: 116 bpm Height: 5'7" Respiratory Rate: 20 bpm Temperature: 37 .0 (C) / 98.6 (F) Weight: 204 lbs 01/24/2012 Blood Pressure 1: 146/100 Code: 8480-6 BMI: 32.0 Code: 15558-5 Heart Rate 1: 100 bpm Height: 5'7" Respiratory Rate: 20 bpm Temperature: 36 .7 (C) / 98.0 (F) Weight: 204 lbs 01/10/2012 Blood Pressure 1: 156/94 Code: 8480-6 BMI: 32.6 Code: 81228-5 Heart Rate 1: 72 bpm Height: 5'7" Respiratory Rate: 20 bpm Temperature: 36 .8 (C) / 98.2 (F) Weight: 208 lbs 12/11/2011 Blood Pressure 1: 146/100 Code: 8480-6 Heart Rat e 1: 116 bpm Height: 5'7" Respiratory Rate: 20 bpm Temperature: 36.9 (C) / 98.4 (F) We ight: 11/09/2011 Blood Pressure 1: 148/96 Code: 8480-6 BMI: 32.1 Code: 02357-3 Heart Rate 1: 116 bpm Height: 5'7" Respiratory Rate: 20 bpm Temperature: 36 .7 (C) / 98.0 (F) Weight: 205 lbs 09/13/2011 Blood Pressure 1: 126/88 Code: 8480-6 Heart Rate 1: 88 bpm Height: 5'7" Respiratory Rate: 20 bpm Temperature: 36.9 (C) / 98.4 (F) We ight: 08/31/2011 Blood Pressure 1: 118/82 Code: 8480-6 BMI: 32.0 Code: 67905-8 Heart Rate 1: 80 bpm Height: 5'7" Temperature: 36.4 (C) / 97.6 (F) Weight: 204 lbs 07/06/2011 Blood Pressure 1: 128/86 Code: 8480-6 BMI: 30.9 Code: 35224-0 Heart Rate 1: 92 bpm Height: 5'7" Respiratory Rate: 20 bpm Temperature: 36 .9 (C) / 98.4 (F) Weight: 197 lbs 06/06/2011 Blood Pressure 1: 112/74 Code: 8480-6 BMI: 31.0 Code: 98596-4 Heart Rate 1: 72 bpm Height: 5'7" [...] 1: 128/92 Code: 8480-6 BMI: 33.6 Code: 37967-8 Heart Rate 1: 104 bpm Height: 5'4" [...] Check-up Encounters Encounter Performer Location Codes Date ([id number]) OFFICE/OUTPATIENT VISIT EST Diagnosis: DM w/o complication type II, uncontrolled[ICD10: E11.65] Diagnosis: Hypertriglyceridemia[ICD10: E78.1] Diagnosis: Essential hypertension[ICD10: I10] María Elena JEAN Fabiola [facility] CPT-4: 81623 09/30/2019 ([id number]) NURSE/OUTPATIENT VISIT EST Diagnosis: Essential (primary) hypertension[ICD10: I10] Diagnosis: Cervicalgia[ICD10: M54.2] Diagnosis: Hyperglycemia, unspecified[ICD10: R73.9] Diagnosis: Mixed hyperlipidemia[ICD10: E78.2] María Elena JEAN Fabiola [facility] CPT-4: 20551 09/29/2019 ([id number]) OFFICE/OUTPATIENT VISIT EST Diagnosis: Essential (primary) hypertension[ICD10: I10] Diagnosis: Fall from bed, sequela[ICD10: W06.XXXS] María Elena REED LucioJj [facility] CPT-4: 42396 05/28/2019 ([id number]) NURSE/OUTPATIENT VISIT EST Diagnosis: Essential (primary) hypertension[ICD10: I10] María Elena JUARES LucioJj [facility] CPT-4: 33520 05/19/2019 ([id number]) OFFICE/OUTPATIENT VISIT EST Diagnosis: Essential (primary) hypertension[ICD10: I10] Diagnosis: Type 2 diabetes mellitus with hyperglycemia[ICD10: E11.65] Diagnosis: Intervertebral disc disorders with radiculopathy, 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] Diagnosis: Hormone replacement therapy[ICD10: Z79.890] María Elena JUARES LucioJj [facility] CPT-4: 66411 01/22/2019 ([id number]) OFFICE/OUTPATIENT VISIT EST Diagnosis: Essential (primary) hypertension[ICD10: I10] Diagnosis: Type 2 diabetes mellitus with hyperglycemia[ICD10: E11.65] María Elena MONTEROQUELINE LucioJj [facility] CPT-4: 33985 09/30/2018 ([id number]) OFFICE/OUTPATIENT VISIT EST Diagnosis: Pain in left elbow[ICD10: M25.522] Diagnosis: Acute stress reaction[ICD10: F43.0] Diagnosis: Primary insomnia[ICD10: F51.01] Diagnosis: Abnormal weight gain[ICD10: R63.5] María Elena JEAN [facility]ender[facility]j [facility] CPT-4: 30578 08/27/2018 ([id number]) OFFICE/OUTPATIENT VISIT EST Diagnosis: Acute recurrent sinusitis, unspecified[ICD10: J01.91] Diagnosis: Follicular disorder, unspecified[ICD10: L73.9] Diagnosis: Tinea corporis[ICD10: B35.4] María Elena APPIAH [facility] CPT-4: 81502 08/09/2018 ([id number]) OFFICE/OUTPATIENT VISIT EST Diagnosis: Tinea corporis[ICD10: B35.4] Diagnosis: Anxiety disorder, unspecified[ICD10: F41.9] Diagnosis: Menopausal and female climacteric states[ICD10: N95.1] María Elena APPIA[facility] CPT-4: 20229 07/22/2018 ([id number]) NURSE/OUTPATIENT VISIT EST Diagnosis: Cellulitis of right toe[ICD10: L03.031] María Elena APPIAH [facility] CPT-4: 01894 06/19/2018 ([id number]) OFFICE/OUTPATIENT VISIT EST Diagnosis: Cellulitis of right toe[ICD10: L03.031] Kathleen APPIAH [facility] CPT-4: 91550 06/17/2018 ([id number]) OFFICE/OUTPATIENT VISIT EST Diagnosis: Migraine without aura, intractable, without status migrainosus[ICD10: G43.019] Diagnosis: Zoster without complications[ICD10: B02.9] Kathleen APPIAH [facility] CPT-4: 12114 05/16/2018 ([id number]) OFFICE/OUTPATIENT VISIT EST Diagnosis: Cellulitis of right lower limb[ICD10: L03.115] Kathleen APPIAH DO [facility] CPT-4: 94028 03/20/2018 ([id number]) OFFICE/OUTPATIENT VISIT EST Diagnosis: Cellulitis of right lower limb[ICD10: L03.115] Kathleen APPIAH DO [facility] CPT-4: 69414 03/18/2018 ([id number]) OFFICE/OUTPATIENT VISIT EST Diagnosis: Cellulitis of right lower limb[ICD10: L03.115] Kathleen APPIAH DO [facility] CPT-4: 70549 03/15/2018 ([id number]) OFFICE/OUTPATIENT VISIT EST Diagnosis: Acute sinusitis, unspecified[ICD10: J01.90] Kathleen APPIAH DO [facility] CPT-4: 57778 02/11/2018 ([id number]) NURSE/OUTPATIENT VISIT EST Diagnosis: Otitis media, unspecified, right ear[ICD10: H66.91] María Elena APPIAH DO [facility] CPT-4: 75963 02/01/2018 ([id number]) OFFICE/OUTPATIENT VISIT EST Diagnosis: Acute suppurative otitis media without spontaneous rupture of ear drum, left ear[ICD10: H66.002] Diagnosis: Abnormal weight gain[ICD10: R63.5] Diagnosis: Intervertebral disc disorders with radiculopathy, 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] Kathleen APPIAH DO [facility] CPT-4: 99 214 01/30/2018 ([id number]) PREV VISIT EST AGE 40-64 Diagnosis: Encounter for general adult medical examination without abnormal findings[ICD10: Z00.00] Diagnosis: Essential (primary) hypertension[ICD10: I10] Diagnosis: Mixed hyperlipidemia[ICD10: E78.2] Diagnosis: Type 2 diabetes mellitus with hyperglycemia[ICD10: E11.65] Diagnosis: 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] María Elena APPIAH [employer] [facility] CPT-4: 21519 12/18/2017 ([id number]) OFFICE/OUTPATIENT VISIT EST Diagnosis: Cellulitis of right toe[ICD10: L03.031] Diagnosis: Mixed hyperlipidemia[ICD10: E78.2] Diagnosis: Essential (primary) hypertension[ICD10: I10] Diagnosis: Hyperglycemia, unspecified[ICD10: R73.9] Diagnosis: Nontoxic goiter, 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] María Elena APPIAH DO [facility] CPT-4: 18478 12/10/2017 ([id number]) OFFICE/OUTPATIENT VISIT EST Diagnosis: Cellulitis of right toe[ICD10: L03.031] Diagnosis: Acute sinusitis, unspecified[ICD10: J01.90] Kathleen APPIAH DO [facility] CPT-4: 86279 12/07/2017 OFFICE/OUTPATIENT VISIT EST Diagnosis: Acute maxillary sinusitis, unspecified[ICD10: J01.00] Kathleen APPIAH DO [facility] CPT-4: 71024 10/08/2017 ([id number]) OFFICE/OUTPATIENT VISIT EST Diagnosis: Cellulitis of left toe[ICD10: L03.032] María Elena APPIAH DO [facility] CPT-4: 84126 09/21/2017 ([id number]) OFFICE/OUTPATIENT VISIT EST Diagnosis: Insomnia, unspecified[ICD10: G47.00] Diagnosis: Major depressive disorder, single episode, unspecified[ICD10: F32.9] Diagnosis: Anxiety disorder, unspecified[ICD10: F41.9] Diagnosis: Cellulitis of left toe[ICD10: L03.032] Diagnosis: Snoring[ICD10: R06.83] Kathleen APPIAH DO 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] Diagnosis: Primary insomnia[ICD10: F51.01] Diagnosis: Other fatigue[ICD10: R53.83] María Elena APPIAH DO [facility] CPT-4: 87234 04/10/2017 ([id number]) OFFICE/OUTPATIENT VISIT EST Diagnosis: Primary insomnia[ICD10: F51.01] Diagnosis: Localized edema[ICD10: R60.0] Diagnosis: 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] María Elena APPIAH DO [facility] CPT-4: 87801 12/13/2016 ([id number]) OFFICE/OUTPATIENT VISIT EST Diagnosis: Primary insomnia[ICD10: F51.01] Diagnosis: Cyanosis[ICD10: R23.0] María Elena Bazzi [facility] CPT-4: 04236 11/01/2016 ([id number]) PREV VISIT EST AGE 40-64 Diagnosis: Encounter for gynecological examination (general) (routine) without abnormal findings[ICD10: Z01.419] Diagnosis: Encounter for routine child health examination without abnormal findings[ICD10: Z00.129] María Elena APPIA[facility] CPT-4: 19433 10/17/2016 ([id number]) OFFICE/OUTPATIENT VISIT EST Diagnosis: Other seasonal allergic rhinitis[ICD10: J30.2] María Elena [facility] CPT-4: 14208 10/10/2016 ([id number]) OFFICE/OUTPATIENT VISIT EST Diagnosis: Pain in left arm[ICD10: M79.602] Diagnosis: Contact with and (suspected) exposure to potentially hazardous body fluids[ICD10: Z77.21] Diagnosis: 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, 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] Diagnosis: Unspecified open wound, right foot, sequela[ICD10: S91.301S] María Elena APPIA[facility] CPT-4: 56521 09/19/2016 ([id number]) OFFICE/OUTPATIENT VISIT EST Diagnosis: Chronic sinusitis, unspecified[ICD10: J32.9] Diagnosis: Allergic rhinitis due to pollen[ICD10: J30.1] María Elena APPIA[facility] CPT-4: 50281 08/24/2016 ([id number]) OFFICE/OUTPATIENT VISIT EST Diagnosis: Acute bronchitis, unspecified[ICD10: J20.9] María Elena APPIAH DO [facility] CPT-4: 75474 08/16/2016 ([id number]) OFFICE/OUTPATIENT VISIT EST Diagnosis: Otitis media, unspecified, right ear[ICD10: H66.91] Diagnosis: Acute bronchitis, unspecified[ICD10: J20.9] María Elena APPIAH DO [facility] CPT-4: 90588 08/10/2016 ([id number]) OFFICE/OUTPATIENT VISIT EST Diagnosis: Acute recurrent sinusitis, unspecified[ICD10: J01.91] Diagnosis: Allergic rhinitis due to pollen[ICD10: J30.1] María Elena APPIAH DO [facility] CPT-4: 82441 08/02/2016 ([id number]) OFFICE/OUTPATIENT VISIT EST Diagnosis: Pain in unspecified joint[ICD10: M25.50] María Elena APPIAH DO [facility] CPT-4: 99559 07/27/2016 OFFICE/OUTPATIENT VISIT EST Diagnosis: 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] Diagnosis: Acute recurrent sinusitis, unspecified[ICD10: J01.91] Diagnosis: Other fatigue[ICD10: R53.83] Diagnosis: Primary insomnia[ICD10: F51.01] Diagnosis: Pain in unspecified joint[ICD10: M25.50] María Elena APPIAH DO [facility] CPT-4: 85203 07/20/2016 ([id number]) OFFICE/OUTPATIENT VISIT EST Diagnosis: Blister (nonthermal), left great toe, initial encounter[ICD10: S90.422A] Loan APPIAH DO [facility] CPT-4: 09965 ([id number]) OFFICE/OUTPATIENT VISIT EST Diagnosis: Acute recurrent sinusitis, unspecified[ICD10: J01.91] María Elena APPIAH DO [facility] CPT-4: 86155 05/25/2016 ([id number]) OFFICE/OUTPATIENT VISIT EST Diagnosis: Acute sinusitis, unspecified[ICD10: J01.90] María Elena [facility] CPT-4: 59146 04/26/2016 ([id number]) OFFICE/OUTPATIENT VISIT EST Diagnosis: Flushing[ICD10: R23.2] Diagnosis: Primary insomnia[ICD10: F51.01] María Elena [facility] CPT-4: 02757 03/02/2016 ([id number]) OFFICE/OUTPATIENT VISIT EST Diagnosis: Other seasonal allergic rhinitis[ICD10: J30.2] Loan [facility] CPT-4: 54542 02/09/2016 ([id number]) OFFICE/OUTPATIENT VISIT EST Diagnosis: Primary insomnia[ICD10: F51.01] Diagnosis: Urinary tract infection, site not specified[ICD10: N39.0] María Elena APPIA[facility] CPT-4: 41700 01/24/2016 ([id number]) OFFICE/OUTPATIENT VISIT EST Diagnosis: Other specified disorders of Eustachian tube, bilateral[ICD10: H69.83] Diagnosis: Allergic rhinitis, unspecified[ICD10: J30.9] Loan [facility]IA[facility] CPT-4: 89591 12/23/2015 ([id number]) OFFICE/OUTPATIENT VISIT EST Diagnosis: Acute recurrent sinusitis, unspecified[ICD10: J01.91] Diagnosis: 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] Diagnosis: Allergic rhinitis, unspecified[ICD10: J30.9] María Elena [facility] CPT-4: 41125 12/08/2015 ([id number]) OFFICE/OUTPATIENT VISIT EST Diagnosis: Allergic rhinitis, unspecified[ICD10: J30.9] Diagnosis: Pain in unspecified joint[ICD10: M25.50] María Elena APPIA[facility] CPT-4: 22710 10/07/2015 ([id number]) OFFICE/OUTPATIENT VISIT EST Diagnosis: Essential (primary) hypertension[ICD10: I10] María Elena APPIA[facility] CPT-4: 99955 10/06/2015 OFFICE/OUTPATIENT VISIT EST Diagnosis: Localized enlarged lymph nodes[ICD10: R59.0] Diagnosis: Local infection of the skin and subcutaneous tissue, unspecified[ICD10: L08.9] June [facility] CPT- 4: 90201 09/14/2015 ([id number]) OFFICE/OUTPATIENT VISIT EST Diagnosis: Essential (primary) hypertension[ICD10: I10] Diagnosis: Actinic keratosis[ICD10: L57.0] María Elena [facility] CPT-4: 11508 09/07/2015 ([id number]) OFFICE/OUTPATIENT VISIT EST Diagnosis: Essential (primary) hypertension[ICD10: I10] Diagnosis: Acute stress reaction[ICD10: F43.0] María Elena [facility] CPT-4: 34868 08/18/2015 ([id number]) OFFICE/OUTPATIENT VISIT EST Diagnosis: Essential (primary) hypertension[ICD10: I10] María Elena [facility] CPT-4: 84715 07/07/2015 ([id number]) OFFICE/OUTPATIENT VISIT EST Diagnosis: Essential (primary) hypertension[ICD10: I10] María Elena [facility] CPT-4: 30208 06/24/2015 ([id number]) OFFICE/OUTPATIENT VISIT EST Diagnosis: Essential (primary) hypertension[ICD10: I10] María Elena [facility] CPT-4: 96667 06/21/2015 ([id number]) OFFICE/OUTPATIENT VISIT EST Diagnosis: Essential (primary) hypertension[ICD10: I10] Diagnosis: Mixed hyperlipidemia[ICD10: E78.2] Diagnosis: Acute stress reaction[ICD10: F43.0] Diagnosis: Primary insomnia[ICD10: F51.01] María Elena [facility] CPT-4: 65086 06/16/2015 ([id number]) OFFICE/OUTPATIENT VISIT EST Diagnosis: INSOMNIA NOS[ICD9: 780.52] Diagnosis: HYPERTENSION[ICD9: 401.9] Diagnosis: Stress reaction[ICD9: 308.9] María Elena [facility] [facility] CPT[facility] 97699 06/02/2015 ([id number]) OFFICE/OUTPATIENT VISIT EST Diagnosis: HYPERTENSION[ICD9: 401.9] Diagnosis: Stress reaction[ICD9: 308.9] María Elena APPIAH DO [facility] CPT-4: 72068 05/20/2015 ([id number]) OFFICE/OUTPATIENT VISIT EST Diagnosis: Skin lesion[ICD9: 709.9] 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] María Elena APPIAH DO [facility] CPT-4: 01431 05/10/2015 ([id number]) OFFICE/OUTPATIENT VISIT EST Diagnosis: SINUSITIS, ACUTE[ICD9: 461.9] Diagnosis: ALLERGIC RHINITIS[ICD9: 477.9] Diagnosis: DERMATITIS NOS[ICD9: 692.9] María Elena REHMAN [facility] CPT-4: 84405 03/16/2015 OFFICE/OUTPATIENT VISIT EST Diagnosis: Otitis media[ICD9: 382.9] Diagnosis: SINUSITIS, ACUTE[ICD9: 461.9] June Felixdaniella APPIAH [facility] CPT-4: 36723 09/11/2014 ([id number]) OFFICE/OUTPATIENT VISIT EST Diagnosis: HYPERLIPIDEMIA NEC/NOS[ICD9: 272.4] María Elena APPIAH DO [facility] CPT-4: 32663 08/31/2014 ([id number]) OFFICE/OUTPATIENT VISIT EST Diagnosis: - I - HYPERTENSION[ICD9: 401.9] Diagnosis: HYPERLIPIDEMIA NEC/NOS[ICD9: 272.4] María Elena APPIAH DO [facility] CPT-4: 03700 08/27/2014 ([id number]) OFFICE/OUTPATIENT VISIT EST Diagnosis: ABDOMINAL PAIN[ICD9: 789.00] Diagnosis: DYSPEPSIA[ICD9: 536.8] Diagnosis: Thoracic back pain[ICD9: 724.1] María Elena APPIAH DO [facility] CPT-4: 25033 07/21/2014 ([id number]) OFFICE/OUTPATIENT VISIT EST Diagnosis: ALLERGIC RHINITIS[ICD9: 477.9] María Elena APPIAH [facility] CPT-4: 49810 07/15/2014 ([id number]) OFFICE/OUTPATIENT VISIT EST Diagnosis: EDEMA[ICD9: 782.3] Diagnosis: Chronic insomnia[ICD9: 780.52] María Elena APPIAH [facility] CPT-4: 61385 05/18/2014 ([id number]) OFFICE/OUTPATIENT VISIT EST Diagnosis: Thyromegaly[ICD9: 240.9] Diagnosis: - I - HYPERTENSION[ICD9: 401.9] Diagnosis: ROUTINE MEDICAL EXAM[ICD9: V70.0] Diagnosis: EDEMA[ICD9: 782.3] María Elean APPIAH [facility] CPT-4: 15243 05/14/2014 OFFICE/OUTPATIENT VISIT EST Diagnosis: BRONCHITIS, ACUTE[ICD9: 466.0] Diagnosis: SINUSITIS, ACUTE[ICD9: 461.9] María Elena APPIAH [facility] CPT-4: 83845 04/21/2014 OFFICE/OUTPATIENT VISIT EST Diagnosis: SINUSITIS, ACUTE[ICD9: 461.9] June Gabriellare MARÍA ELENA APPIAH [facility] CPT-4: 72720 03/04/2014 ([id number]) OFFICE/OUTPATIENT VISIT EST Diagnosis: VACCINE FOR TDAP[ICD10: Z23] María Elena APPIAH [facility] CPT-4: 98369 02/27/2014 ([id number]) OFFICE/OUTPATIENT VISIT EST Diagnosis: Seborrheic keratoses, inflamed[ICD9: 702.11] Diagnosis: ACTINIC KERATOSIS[ICD9: 702.0] Diagnosis: INSOMNIA NOS[ICD9: 780.52] María Elena PANDYA [facility] CPT-4: 14499 01/13/2014 OFFICE/OUTPATIENT VISIT EST Diagnosis: EUSTACHIAN TUBE DYSFUNCTION[ICD9: 381.81] Diagnosis: ALLERGIC RHINITIS[ICD9: 477.9] Diagnosis: Serous otitis media[ICD9: 381.4] María Elena APPIAH [facility] CPT-4: 04367 12/24/2013 ([id number]) OFFICE/OUTPATIENT VISIT EST Diagnosis: SINUSITIS, ACUTE[ICD9: 461.9] Diagnosis: ALLERGIC RHINITIS[ICD9: 477.9] Diagnosis: EUSTACHIAN TUBE DYSFUNCTION[ICD9: 381.81] María Elena APPIAH DO [facility] CPT-4: 51966 11/12/2013 ([id number]) OFFICE/OUTPATIENT VISIT EST Diagnosis: ALLERGIC RHINITIS[ICD9: 477.9] Diagnosis: SINUSITIS, ACUTE[ICD9: 461.9] María Elena APPIAH DO [facility] CPT-4: 65177 10/21/2013 ([id number]) OFFICE/OUTPATIENT VISIT EST Diagnosis: ASYMPTOMATIC VARICOSE VEINS[ICD9: 454.9] Diagnosis: INSOMNIA NOS[ICD9: 780.52] María Elena PANDYA [facility] CPT-4: 24204 09/22/2013 OFFICE/OUTPATIENT VISIT EST Diagnosis: SINUSITIS, ACUTE[ICD9: 461.9] June Washingtongurmeetfatimah MARÍA ELENA APPIAH [facility] CPT-4: 56290 08/27/2013 ([id number]) OFFICE/OUTPATIENT VISIT EST Diagnosis: CEPHALGIA[ICD9: 784.0] Diagnosis: CEPHALGIA, TENSION[ICD9: 307.81] 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] María Elena APPIAH [facility] CPT-4: 40294 08/04/2013 ([id number]) OFFICE/OUTPATIENT VISIT EST Diagnosis: Cervicalgia[ICD9: 723.1] Diagnosis: SPASM OF MUSCLE[ICD9: 728.85] Diagnosis: CEPHALGIA, TENSION[ICD9: 307.81] María Elena APPIAH [facility] CPT-4: 46036 07/23/2013 ([id number]) OFFICE/OUTPATIENT VISIT EST Diagnosis: EUSTACHIAN TUBE DYSFUNCTION[ICD9: 381.81] Diagnosis: ALLERGIC RHINITIS[ICD9: 477.9] María Elena APPIAH [facility] CPT-4: 90748 06/23/2013 ([id number]) OFFICE/OUTPATIENT VISIT EST Diagnosis: ALLERGIC RHINITIS[ICD9: 477.9] Diagnosis: ACUTE SEROUS OTITIS MEDIA[ICD9: 381.01] Diagnosis: EUSTACHIAN TUBE DYSFUNCTION[ICD9: 381.81] María Elena Hicks TD [facility] CPT-4: 66098 05/26/2013 ([id number]) OFFICE/OUTPATIENT VISIT EST Diagnosis: HYPERTENSION[ICD9: 401.9] Diagnosis: EDEMA[ICD9: 782.3] Diagnosis: Serous otitis media[ICD9: 381.4] María Elena Hicks [facility] CPT-4: 62486 04/16/2013 ([id number]) OFFICE/OUTPATIENT VISIT EST Diagnosis: SINUSITIS, ACUTE[ICD9: 461.9] Diagnosis: ALLERGIC RHINITIS[ICD9: 477.9] Diagnosis: EDEMA[ICD9: 782.3] Diagnosis: Thyromegaly[ICD9: 240.9] Diagnosis: MALAISE AND FATIGUE[ICD9: 780.79] María Elena Hicks [facility] CPT-4: 61522 03/05/2013 ([id number]) OFFICE/OUTPATIENT VISIT EST Diagnosis: PAIN, LOWER BACK[ICD9: 724.2] Diagnosis: SPASM OF MUSCLE[ICD9: 728.85] María Elena Hicks [facility] CPT-4: 22528 12/23/2012 OFFICE/OUTPATIENT VISIT EST Diagnosis: Low back pain[ICD9: 724.2] Lashawn Hicks [facility] CPT-4: 77027 12/16/2012 ([id number]) OFFICE/OUTPATIENT VISIT EST Diagnosis: PAIN, LOWER BACK[ICD9: 724.2] Diagnosis: SCIATICA[ICD9: 724.3] Diagnosis: Lumbar herniated disc[ICD9: 722.10] María Elena Hicks [facility] CPT-4: 70025 12/09/2012 ([id number]) OFFICE/OUTPATIENT VISIT EST Diagnosis: PAIN, LOWER BACK[ICD9: 724.2] Diagnosis: SCIATICA[ICD9: 724.3] Diagnosis: LUMBAR DISC DISPLACEMENT[ICD9: 722.10] María Elena ISAAC TANIA APPIAH DO [facility] CPT-4: 56289 12/04/2012 OFFICE/OUTPATIENT VISIT EST Diagnosis: Pneumonia[ICD9: 486] Mary SerranoRustam MARÍA ELENA APPIAH DO [facility] CPT-4: 75506 11/22/2012 ([id number]) OFFICE/OUTPATIENT VISIT EST Diagnosis: PNEUMONIA, ORGANISM[ICD9: 486] Diagnosis: Exacerbation of RAD (reactive airway disease)[ICD9: 493.92] María Elena APPIAH DO [facility] CPT-4: 25831 11/21/2012 OFFICE/OUTPATIENT VISIT EST Diagnosis: HYPERTENSION[ICD9: 401.9] Diagnosis: Cephalgia[ICD9: 784.0] Lashawn Eckert MARÍA ELENA APPIAH DO [facility] CPT-4: 05208 10/29/2012 ([id number]) OFFICE/OUTPATIENT VISIT EST Diagnosis: MALAISE AND FATIGUE[ICD9: 780.79] Diagnosis: ARTHRALGIA-MULTIPLE SITES[ICD9: 719.49] María Elena APPIAH DO [facility] CPT-4: 17101 10/14/2012 ([id number]) OFFICE/OUTPATIENT VISIT EST Diagnosis: URINARY FREQUENCY[ICD9: 788.41] María Elena APPIAH DO [facility] CPT-4: 88784 09/27/2012 ([id number]) OFFICE/OUTPATIENT VISIT EST Diagnosis: MALAISE AND FATIGUE[ICD9: 780.79] Diagnosis: ARTHRALGIA-MULTIPLE SITES[ICD9: 719.49] María Elena Seamusabbey KYLAH APPIAH DO [facility] CPT-4: 25222 09/25/2012 ([id number]) OFFICE/OUTPATIENT VISIT EST Diagnosis: SINUSITIS, ACUTE[ICD9: 461.9] Diagnosis: EUSTACHIAN TUBE DYSFUNCTION[ICD9: 381.81] María Elena Td APPIAH DO [facility] CPT-4: 32849 08/29/2012 OFFICE/OUTPATIENT VISIT EST Diagnosis: ACTINIC KERATOSIS[ICD9: 702.0] Diagnosis: Inflamed seborrheic keratosis[ICD9: 702.11] Diagnosis: Skin cancer of face[ICD9: 173.31] Diagnosis: HYPERTENSION[ICD9: 401.9] María Elena WAY NDER [facility] CPT-4: 46803 08/12/2012 ([id number]) OFFICE/OUTPATIENT VISIT EST Diagnosis: ARTHRALGIA-MULTIPLE SITES[ICD9: 719.49] Diagnosis: GOUT[ICD9: 274.9] Diagnosis: HYPERTENSION[ICD9: 401.9] Diagnosis: Tachycardia[ICD9: 785.0] María Elena HU KARLOS [facility] CPT-4: 93703 05/06/2012 ([id number]) OFFICE/OUTPATIENT VISIT EST Diagnosis: INSOMNIA NOS[ICD9: 780.52] María Elena KENTER [facility] CPT-4: 24900 04/03/2012 ([id number]) OFFICE/OUTPATIENT VISIT EST Diagnosis: INSOMNIA NOS[ICD9: 780.52] Diagnosis: HYPERTENSION[ICD9: 401.9] Diagnosis: MIGRAINE NOS/NOT INTRCBL[ICD9: 346.90] María Elena Waymindimaryjane CulverJARED SJj [facility] CPT-4: 40228 03/19/2012 ([id number]) OFFICE/OUTPATIENT VISIT EST Diagnosis: CELLULITIS[ICD9: 682.9] Diagnosis: Ankle pain[ICD9: 719.47] Diagnosis: HYPERTENSION[ICD9: 401.9] María Elena WAY NDERose Mary [facility] CPT-4: 33239 02/20/2012 ([id number]) OFFICE/OUTPATIENT VISIT EST Diagnosis: MIGRAINE NOS/NOT INTRCBL[ICD9: 346.90] Diagnosis: Vomiting[ICD9: 787.03] María Elena TANNER R [facility] CPT-4: 94710 01/30/2012 ([id number]) OFFICE/OUTPATIENT VISIT EST Diagnosis: EDEMA[ICD9: 782.3] Diagnosis: HYPERTENSION[ICD9: 401.9] Diagnosis: ALLERGIC RHINITIS[ICD9: 477.9] Diagnosis: ARTHRALGIA-MULTIPLE SITES[ICD9: 719.49] María Elena Waymindimaryjane ValdesJj SEAMUS[facility] [employer] [facility] CPT-4: 23011 01/24/2012 ([id number]) OFFICE/OUTPATIENT VISIT EST Diagnosis: SPASM OF MUSCLE[ICD9: 728.85] Diagnosis: Thoracic back pain[ICD9: 724.1] Diagnosis: Cervical pain[ICD9: 723.1] María Elena Seamusmindimaryjane MARÍA ELENA Fabiola PANDYA [facility] CPT-4: 97426 01/10/2012 OFFICE/OUTPATIENT VISIT EST Diagnosis: PAIN, LOWER BACK[ICD9: 724.2] Diagnosis: LUMBAR DISC DISPLACEMENT[ICD9: 722.10] María Elena ISAAC TANIA ValdesJj TD [facility] CPT-4: 59853 12/11/2011 OFFICE/OUTPATIENT VISIT EST Diagnosis: MIGRAINE NOS/NOT INTRCBL[ICD9: 346.90] Diagnosis: SINUSITIS, ACUTE[ICD9: 461.9] María Elena Seamusmindimaryjane MARÍA ELENA LucioJj [facility] CPT-4: 71122 11/09/2011 OFFICE/OUTPATIENT VISIT EST Diagnosis: MIGRAINE NOS/NOT INTRCBL[ICD9: 346.90] Diagnosis: LYMPHADENOPATHY[ICD9: 785.6] María Elena Seamusmindimaryjane MARÍA ELENA LucioJj [facility] CPT-4: 21845 09/13/2011 OFFICE/OUTPATIENT VISIT EST Diagnosis: MALAISE AND FATIGUE[ICD9: 780.79] Diagnosis: ARTHRALGIA-MULTIPLE SITES[ICD9: 719.49] María Elena Seamusabbey MONTERO APARNAALCIDES LucioJj [facility] CPT-4: 25211 08/31/2011 OFFICE/OUTPATIENT VISIT EST Diagnosis: SINUSITIS, ACUTE[ICD9: 461.9] María Elena Seamusabbey JUARES LucioJj TD [facility] CPT-4: 97848 07/20/2011 OFFICE/OUTPATIENT VISIT EST Diagnosis: HYPERTENSION[ICD9: 401.9] Diagnosis: PAIN, LOWER BACK[ICD9: 724.2] Diagnosis: SPASM OF MUSCLE[ICD9: 728.85] María Elena JUARES LucioJj [facility] CPT-4: 98148 07/06/2011 OFFICE/OUTPATIENT VISIT EST Diagnosis: MIGRAINE NOS/NOT INTRCBL[ICD9: 346.90] Diagnosis: HYPERTENSION[ICD9: 401.9] María Elena JUARES S. ORE NDER DO [facility] CPT-4: 64254 05/22/2011 OFFICE/OUTPATIENT VISIT EST Diagnosis: SINUSITIS, ACUTE[ICD9: 461.9] Diagnosis: MIGRAINE NOS/NOT INTRCBL[ICD9: 346.90] Diagnosis: Dehydration[ICD9: 276.51] Diagnosis: Vomiting[ICD9: 787.03] María Elena MONTEROQUELINE Lucio. ORENDE R DO [facility] CPT-4: 25268 05/09/2011 ([id number]) OFFICE/OUTPATIENT VISIT EST María Elena Td ISAAC UELINE S. ORENDER DO [facility] CPT-4: 58266 02/14/2011 ([id number]) OFFICE/OUTPATIENT VISIT EST María Elena Seamusmindimaryjane ISAAC UELINE S. ORENDER DO [facility] CPT-4: 25480 02/03/2011 ([id number]) OFFICE/OUTPATIENT VISIT EST María Elena Seamusmindimaryjane ISAAC UELINE S. ORENDER DO [facility] CPT-4: 70261 01/31/2011 ([id number]) OFFICE/OUTPATIENT VISIT EST María Elena Seamusmindimaryjane ISAAC UELINE S. ORENDER DO [facility] CPT-4: 40344 01/25/2011 ([id number]) OFFICE/OUTPATIENT VISIT EST María Elena Td ISAAC UELINE S. ORENDER DO [facility] CPT-4: 80840 01/18/2011 ([id number]) OFFICE/OUTPATIENT VISIT EST María Elena ISAAC UELINE S. ORENDER DO [facility] CPT-4: 97091 11/29/2010 ([id number]) OFFICE/OUTPATIENT VISIT, EST María Elena MONTERO QUEALCIDES S. ORENDER DO [facility] CPT-4: 72250 10/10/2010 ([id number]) OFFICE/OUTPATIENT VISIT, EST María Elena Seamusabbey MONTERO APARNAALCIDES S. ORENDER DO [facility] CPT-4: 48499 06/07/2010 ([id number]) OFFICE/OUTPATIENT VISIT, EST María Elena MONTERO QUEALCIDES S. ORENDER DO [facility] CPT-4: 91306 04/27/2010 ([id number]) OFFICE/OUTPATIENT VISIT, EST María Elena MONTERO APARNAALCIDES S. ORENDER DO [facility] CPT-4: 28950 04/05/2010 ([id number]) OFFICE/OUTPATIENT VISIT, EST María Elena APPIAH DO [employer] CPT-4: 38521 03/09/2010 ([id number]) OFFICE/OUTPATIENT VISIT, EST María Elena [facility]IA[facility] CPT-4: 72349 03/03/2010 ([id number]) OFFICE/OUTPATIENT VISIT, EST María Elena APPIAH DO [employer] CPT-4: 56064 01/17/2010 ([id number]) PREV VISIT, EST, AGE 40-64 María Elena APPIAH DO [employer] CPT-4: 74687 12/27/2009 Plan of Care Planned Activity Notes [...] E11.65 09/30/2019 Patient Education: Premarin- [employer] Coupon [id number] https://www.Raidarrr.com/samplemd/resources/getResource/61/94856o06-u175-2tpr-r2 Completed 09/30/2019 Appointment: María Elena [facility] [phone] [facility] [place] [facility] 09/29/2019 Appointment: María Elena Appiah [facility]el[facility] [phone] [facility] [place] Won't have the new insurance till [...] : W06.XXXS 05/28/2019 Appointment: María Elena Appiahtel: [address] [place], [place] [phone] [place] FOLLOW UP 05/28/2019 Appointment: María Elena Appiah WPtel: [address] [place], [place] [phone] [place] BP CHECK 05/19/2019 Visit Diagnosis Plan: [...] : Z79.890 01/22/2019 Appointment: María Elena Appiahtel: [address] [place], [place] [phone] [place] FOLLOW UP 01/22/2019 Patient Education: estradiol- Opt[employer] Coupon [id number] 67 https://www.Raidarrr.com/samplemd/resources/getResource/61/403t906z-8br9-0x35-4s Completed 01/22/2019 Appointment: María Elena Appiahtel: [facility] [place] CANCELED 01/20/2019 Appointment: María Elena Appiahtel: [address] [place] [address] [place] LM NO SHOW 01/06/2019 Appointment: María Elena Appiah WPtel: [address] [place] [address] [place] CANCELED 10/17/2018 Appointment: María Elena Appiah WPtel: [address] [place] [address] US BP CHECK 10/09/2018 Visit Diagnosis Plan: [...] I10 09/30/2018 Appointment: María Elena Appiah WPtel: [address] [place] [address] US FOLLOW UP 09/30/2018 Visit Diagnosis Plan: [...] : F51.01 08/27/2018 Appointment: María Elena Appiahtel: [address] [place] [address] ACUTE ILLNESS 08/27/2018 Appointment: María Elena Appiah WPtel: [address] [place] [address] [place] Patient stated she went out to [...] Tyle... 08/09/2018 Appointment: María Elena Appiah WPtel: [address] [place] [address] ACUTE ILLNESS 08/09/2018 Appointment: María Elena Appiah WPtel: [address] [place] [address] NO SHOW 08/08/2018 Visit Diagnosis Plan: Anxiety [...] 07/22/2018 Appointment: María Elena Appiah WPtel: [address] [place] [address] ACUTE ILLNESS 07/22/2018 Appointment: María Elena Appiah WPtel: [address] [place] [address] [place] INJECTION 06/19/2018 Patient Education: Patient Medication [...] ICD-10 : L03.031 06/17/2018 Appointment: Kathleen Zuniga [address] [place] [address] ACUTE ILLNESS 06/17/2018 Patient Education: Patient Medication [...] ICD-10 : B02.9 05/16/2018 Appointment: Kathleen Zuniga [address] [place] [address] ACUTE ILLNESS 05/16/2018 Patient Education: Patient Medication [...] : L03.115 03/20/2018 Appointment: Kathleen Zuniga [address] [place], [place] [address] FOLLOW UP 03/20/2018 Patient Education: Patient Medication [...] : L03.115 03/18/2018 Appointment: Kathleen Zuniga [address] [id number] FOLLOW UP 03/18/2018 Patient Education: Patient Medication [...] ICD-10 : L03.115 03/15/2018 Appointment: Kathleen Zuniga [address] [place], [place] [id number] ACUTE ILLNESS 03/15/2018 Patient Education: Patient Medication [...] ICD-10 : J01.90 02/11/2018 Appointment: Kathleen Zuniga [address] [place], [place] [id number] ACUTE ILLNESS 02/11/2018 Patient Education: Patient Medication Summary Completed 02/11/2018 Appointment: María Elena Appiah [facility]Ptel[facility] [phone] [id number] INJECTION 02/01/2018 Patient Education: Patient Medication Summary [...] ICD-10 : M51.16 01/30/2018 Appointment: Kathleen Zuniga [address] [place] [address] ACUTE ILLNESS 01/30/2018 Patient Education: Patient Medication [...] 12/18/2017 Appointment: María Elena Appiah WPtel: [phone] [facility] Annual Well Visit 12/18/2017 Patient Education: Patient Medication Summary Completed 12/18/2017 Care Plan: Referral Order SNOMED-CT : [id number] Pending 12/18/2017 Appointment: María Elena Appiah WPtel: [phone] [facility] [place] INJECTION 12/10/2017 Patient Education: Patient Medication [...] : L03.031 12/07/2017 Appointment: Kathleen Zuniga [address] [place] [address] ACUTE ILLNESS 12/07/2017 Patient Education: Patient Medication [...] : J01.00 10/08/2017 Appointment: Kathleen Zuniga [address] [place] [address] ACUTE ILLNESS 10/08/2017 Patient Education: Patient Medication Summary Completed 10/08/2017 Appointment: María Elena Appiah WPtel: [phone] [facility] [place] INJECTION 09/21/2017 Patient Education: Patient Medication [...] ICD-10 : R06.83 09/20/2017 Appointment: Kathleen Zuniga [address] [place] [address] ACUTE ILLNESS 09/20/2017 Patient Education: Patient Medication [...] ICD-10 : L60.0 08/29/2017 Appointment: Kathleen Zuniga [address] [place] [address] OFFICE SURGERY 08/29/2017 Patient Education: Patient Medication Summary Completed 08/29/2017 Visit Diagnosis Plan: Actinic keratosis Discussion: Cr yotherapy as above ICD-9 : 702.0 ICD-10 : L57.0 08/01/2017 Appointment: María Elena Appiah WPtel: [address] [place] [address] OFFICE SURGERY 08/01/2017 Patient Education: Patient Medication Summary Completed 08/01/2017 Appointment: María Elena Appiah WPtel: [address] [place] [address] PATIENT THOUGHT APPOINTMENT WAS TOMORROW 07/26/17 CALLED 15 MINUTES BEFORE APPT TO SAY SHE DIDN'T HAVE ANYONE TO COVER HER BUSINESS AND WOULD NOT MAKE IT NO SHOW 07/25/2017 Visit Diagnosis Plan: Cellulitis of left toe Discussio n: Clindamycin and notify if worsening or persistis ICD-9 : 681.10 ICD-10 : L03.032 07/19/2017 Appointment: María Elena Appiah WPtel: [address] [place] [address] MEDICATION REVIEW 07/19/2017 Patient Education: Patient Medication Summary Completed 07/19/2017 Appointment: María Elena Appiah WPtel: [address] [place] [address] CANCELED 07/04/2017 Visit Diagnosis Plan: Generalized hyperhidrosis Discus ian: CBC, CMP, TSH, free T4 ordered to assess. will review labs. ICD-9 : 780.8 ICD-10 : R61 06/27/2017 Visit Diagnosis Plan: Chronic sinusitis, unspecified D iscussion: Referral sent to dr. albarado in [place] per patient request. patient has been treated multiple times for sinus infections with no recovery. patient was seen by dr sanchez in the past with no interventions. patient has deviated septum which may be affecting her sinuses. 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, including hip Discussion: Shave removal of above lesio n--sent to pathology ICD-9 : 216.7 ICD-10 : D23.72 01/24/2017 Appointment: María Elena Appiah WPtel: [address] [place], [place] [phone] 01/23 confirmed ~sl OFFICE SURGERY 01/24/2017 Patient Education: Patient Medication Summary Completed 01/24/2017 Appointment: Loan Sánchez [address] [place] [address] 01/09 rescheduled~sl RESCHEDULED 01/15/2017 Visit Diagnosis Plan: [...] 12/13/2016 Appointment: María Elena Appiah [facility]Ptel: [phone] [facility] [place] 12/12 confirmed ~ MEDICATION REVIEW 12/13/2016 Patient Education: Patient Medication Summary Completed 12/13/2016 Appointment: María Elena Appiah WPtel: [address] [place] [address] [place] rescheduled for 12/13/16 at 11am RESCHEDULED 0 12/06/2016 Appointment: María Elena Appiah WPtel: [phone] [facility] [place] CANCELED 11/23/2016 Patient Education: Patient [...] 11/01/2016 Appointment: María Elena Appiah WPtel: [phone] [facility] [place] 10/31 lm `sl 11/01 lm`sl MEDICATION REVIEW 017 Patient Education: Patient Medication Summary Completed 11/01/2016 Referral: Canelo Overton WPtel: [phone] [id number] Referral Initiated 10/30/2016 Visit Diagnosis Plan: Encounter [...] Z01.419 10/17/2016 Appointment: María Elena Appiah WPtel: [address] [place], [place] [phone] 10/16 confirmed ~sl PAP 10/17/2016 Patient Education: Patient Medication Summary Completed 10/17/2016 Care Plan: MAMMOGRAM SCREENING LOINC : 2 6347-5 Pending 10/17/2016 Visit Diagnosis Plan: Other seasonal allergic rhinitis Discussion: Decadron/Garamycin Nasal [place] Mix Too soon for steroid Retry zyrtec 10mg daily ICD-9 : 477.9 ICD-10 : J30.2 10/10/2016 Appointment: María Elena Appiah WPtel: [address] [place], [place] [phone] [place] FOLLOW UP 10/10/2016 Patient Education: Patient Medication Summary Completed 10/10/2016 Appointment: María Elena Appiah WPtel: [address] [place], [place] [phone] 10/02 reschedule `sl RESCHEDULED 10/02/2016 Visit Plan: See surgery for removal of n ew left arm lesion and right foot lesion Lyrica to use next month for left arm paresthesias Continue current meds Discussed sunscreen/sunblock combo 09/19/2016 Appointment: María Elena Appiah WPtel: [address] [place], [place] [phone] 09/18 confirmed ~sl FOLLOW UP 09/19/2016 Patient Education: Patient Medication Summary Completed 09/19/2016 Patient Education: Patient Medication Summary Completed 09/18/2016 Care Plan: MAMMOGRAM BOTH BREASTS LOINC : 32141-0 Pending 09/18/2016 Visit Plan: Discussed that needs [...] sinuses 08/24/2016 Appointment: María Elena Appiah WPtel: [address] [place] [address] ACUTE ILLNESS 08/24/2016 Patient Education: Patient Medication Summary Completed 08/24/2016 Patient Education: Patient Medication Summary Completed 08/23/2016 Care Plan: MAMMOGRAM SCREENING LOINC : 2 6347-5 Pending 08/23/2016 Visit Plan: Finish doxycycline Add Breo 100/25 1 p BID for 2 weeks If not improving within next 2 days will get CXR 08/16/2016 Appointment: María Elena Appiah WPtel: [address] [place] [address] ACUTE ILLNESS 08/16/2016 Patient Education: Patient Medication Summary Completed 08/16/2016 Visit Plan: Supportive care. Rest, Fluid s, Tylenol/Motrin prn fever or bodyaches. Notify if worsening symptoms. Doxycyline and Prednisone 08/10/2016 Appointment: María Elena Appiah WPtel: [address] [place] [address] 08/09 lm`sl....confirmed-sp FOLLOW UP 09/2015 Patient Education: Patient Medication Summary Completed 08/10/2016 Visit Plan: Saline nasal flushes prn. Ty lenol/Motrin prn headache. Notify if persists/symptoms worsening. Dexamethasone 8mg IM today May use coricedan and mucinex 08/02/2016 Appointment: María Elena Appiah WPtel: [address] [place] [address] ACUTE ILLNESS 08/02/2016 Patient Education: Patient Medication Summary Completed 08/02/2016 Visit Plan: Cryotherapy as above and lef t forearm lesion removal as above with 5-0 punch biopsy and sent to path Return in 10 days for suture removal 08/01/2016 Appointment: María Elena Appiah WPtel: [address] [place], [place] [phone] 07/31 confirmed`~sl OFFICE SURGERY 08/01/2016 Patient Education: Patient Medication Summary Completed 08/01/2016 Visit Plan: Stop clindamycin Check CBC, CMP, ESR now/STAT 07/27/2016 Appointment: María Elena Appiah WPtel: [address] [place], [place] [phone] [[email or web address]] ACUTE ILLNESS 07/27/2016 Patient Education: Patient Medication Summary Completed 07/27/2016 Visit Plan: Update lab and check ABIs to start with Will likely need cardiology evaluation to rule out PVD Clindamycin for 10 days Daily yogurt or probiotic Will return for removal of left arm lesions 07/20/2016 Appointment: María Elena Appiah WPtel: [address] [place], [place] [phone] ACUTE ILLNESS 07/20/2016 Patient Education: Patient Medication Summary Completed 07/20/2016 Patient Education: Patient Medication Summary Completed 07/20/2016 Care Plan: MAMMOGRAM BOTH BREASTS LOINC : 96303-1 Pending 07/20/2016 Care Plan: US EXAM CHEST LOINC : 64894-6 Pending 07/20/2016 Visit Plan: Wound culture collected from left great toe Appearance is somewhat staph like Rx as above Wound cleanser and skin care reviewed May need to add oral antibiotic if sores do not heal or continue to reoccur 07/06/2016 Appointment: Loan Sánchez [address] [place], [place] [id number] ACUTE ILLNESS 07/06/2016 Patient Education: Patient Medication Summary Completed 07/06/2016 Appointment: María Elena Appiah WPtel: [address] [place], [place] [phone] [place] INJECTION 05/25/2016 Patient Education: Patient Medication Summary Completed 05/25/2016 Visit Plan: Saline nasal flushes prn. Ty lenol/Motrin prn headache. Notify if persists/symptoms worsening. Dexamethasone and Rocephin given 04/26/2016 Appointment: María Elena Appiah WPtel: [address] [place] [address] ACUTE ILLNESS 04/26/2016 Patient Education: Patient Medication Summary Completed 04/26/2016 Visit Plan: Check CBC, CMP, TSH, FreeT4, HbA1C, estradiol, lipids in AM 03/02/2016 Appointment: María Elena Appiah WPtel: [address] [place] [address] 03/01 lm~sl ACUTE ILLNESS 03/02/2016 Patient Education: Patient Medication Summary Completed 03/02/2016 Visit Plan: Exam is nearly normal Needs to be taking daily antihistamine Would prefer to use oral steroids instead of shot but patient insist that oral steroids cause horrible headaches for her Will given kenalog IM instead 02/09/2016 Appointment: Loan Sánchez [address] [place] [address] ACUTE ILLNESS 02/09/2016 Patient Education: Patient Medication Summary Completed 02/09/2016 Visit Plan: Culture urine Macrobid DC xa nax Trial of Ativan 1mg q HS 01/24/2016 Appointment: María Elena Appiah WPtel: [address] [place] [address] ACUTE ILLNESS 01/24/2016 Patient Education: Patient Medication Summary Completed 01/24/2016 Visit Plan: No steroid or rocephin injec tion warranted Can have oral prednisone Continue current home regimen Needs to follow up with Dr Sanchez if problems persist 12/23/2015 Appointment: Loan Sánchez [address] [place] [address] ACUTE ILLNESS 12/23/2015 Patient Education: Patient Medication Summary Completed 12/23/2015 Visit Plan: Saline nasal flushes prn. Ty lenol/Motrin prn headache. Notify if persists/symptoms worsening. Kenalog 40mg IM today 12/08/2015 Appointment: María Elena Appiah WPtel: [address] [place] [address] 12/06 confirmed~sl ACUTE ILLNESS 12/08/2015 Patient Education: Patient Medication Summary Completed 12/08/2015 Appointment: María Elena Appiah WPtel: [address] [place], [place] [phone] ACUTE ILLNESS 11/18/2015 Patient Education: Patient Medication Summary Completed 10/11/2015 Appointment: María Elena Appiah WPtel: [address] [place], [place] [phone] [place] INJECTION 10/07/2015 Patient Education: Patient Medication Summary Completed 10/07/2015 Visit Plan: Check renal arterial doppler s and ECHO Change amlodopine to lotrel 5/20mg q HS Will need stress test as well Check CMP, uric acid, ESR 10/06/2015 Appointment: María Elena Appiah WPtel: [address] [place] [address] ACUTE ILLNESS 10/06/2015 Patient Education: Patient Medication Summary Completed 10/06/2015 Patient Education: [facility] - [employer]aving [employer] - Amlodipine Besylate - 18-64 - Dynamic Portal ID Completed 10/06/2015 Appointment: María Elena Appiah WPtel: [address] [place] [address] FOLLOW UP 09/22/2015 Visit Plan: Cephalexin 500 mg PO bid Mery ly topical Mupirocin to lesions on left lateral neck and face Follow-up in one week. Sooner if symptoms worsen 09/14/2015 Appointment: June Flores WPtel: [address] [place], [place] [phone] ACUTE ILLNESS 09/14/2015 Patient Education: Patient Medication Summary Completed 09/14/2015 Visit Plan: Change bystolic to bedtime d osing and amlodopine to morning dosing Cryotherapy as above to AKs 09/07/2015 Appointment: María Elena Appiah WPtel: [address] [place], [place] [phone] 09/06 appointment made and confirmed ~sl FOLLOW UP 09/07/2015 Patient Education: Patient Medication Summary Completed 09/07/2015 Visit Plan: Increase bystolic back to 20 mg daily but will split and take 10mg in AM and 10mg in PM Stress Reducers 08/18/2015 Appointment: María Elena Appiahtel: [address] [place] [address] 08/17/15 appt confirmed cn ACUTE ILLNESS 08/18 Patient Education: Patient Medication Summary Completed 08/18/2015 Appointment: María Elena Appiah WPtel: [address] [place] [address] BP CHECK 07/07/2015 Patient Education: Patient Medication Summary Completed 07/07/2015 Appointment: María Elena Appiah WPtel: [address] [place] [address] BP CHECK 06/24/2015 Patient Education: Patient Medication Summary Completed 06/24/2015 Appointment: María Elena Appiah WPtel: [address] [place] [address] BP CHECK 06/21/2015 Patient Education: Patient Medication Summary Completed 06/21/2015 Visit Plan: Lab discussed Continue suhail nt meds and lifestyle modification Recheck lab in 6mos 06/16/2015 Appointment: María Elena Appiah WPtel: [address] [place] [address] 06/15 confirmed FOLLOW UP 06/16/2015 Patient Education: Patient Medication Summary Completed 06/16/2015 Patient Education: Patient Medication Summary Completed 06/15/2015 Visit Plan: Increase cymbalta to 60mg q HS Keep clonidine at current dose Recheck 2weeks Change xanax to klonopin 06/02/2015 Appointment: María Elena Appiah WPtel: [address] [place] [address] 06/02 lm FOLLOW UP 06/02/2015 Patient Education: Patient Medication Summary Completed 06/02/2015 Appointment: María Elena Appiah WPtel: [address] [place] [address] ACUTE ILLNESS 05/24/2015 Visit Plan: Increase clonidine to 0.2mg q HS Add cymbalta 30mg q HS Recheck 2weeks Stress Reducers Check fasting lab Discussed sleep study 05/20/2015 Appointment: María Elena Appiah WPtel: [address] [place] [address] ACUTE ILLNESS 05/20/2015 Patient Education: Patient Medication Summary Completed 05/20/2015 Patient Education: [facility] - [employer] - Cymbalta - 18-64 - Dynamic Portal ID Completed 05/20/2015 Appointment: María Elena Appiah WPtel: [address] [place] [address] BP CHECK 05/19/2015 Patient Education: Patient Medication Summary Completed 05/19/2015 Visit Plan: Topical Bactroban alternatin g with topical betamethasone Recheck 2weeks 05/10/2015 Appointment: María Elena Appiah WPtel: [address] [place] [address] 05/07 vm cn...05/07 appt confirmed OFFICE SURGER Y 05/10/2015 Patient Education: Patient Medication Summary Completed 05/10/2015 Referral: Patrick Chandler WPtel: [address] Referral Initiated 05/04/2015 Visit Plan: Saline nasal flushes prn. Ty lenol/Motrin prn headache. Notify if persists/symptoms worsening. Depomedrol 40mg IM today 03/16/2015 Appointment: María Elena Appiah WPtel: [address] [place] [address] ACUTE ILLNESS 03/16/2015 Patient Education: Patient Medication Summary Completed 03/16/2015 Appointment: María Elena Appiah WPtel: [address] [place] [address] ER Follow UP 03/09/2015 Visit Plan: Cryotherapy to lesions as ab ove 10/27/2014 Appointment: María Elena Appiah WPtel: [address] [place] [address] OFFICE SURGERY 10/27/2014 Patient Education: Patient Medication Summary Completed 10/27/2014 Appointment: June Flores WPtel: [address] [place] [address] ACUTE ILLNESS 09/11/2014 Patient Education: Patient Medication Summary Completed 09/11/2014 Visit Plan: Lab discussed Lipitor 10mg d aily Coenzyme Q-10 400mg daily Vitamin D3 5000u daily Recheck lipids with LFTs in 3mos then fwup 08/31/2014 Appointment: María Elena Appiah WPtel: [address] [place] [address] 08/28 voicemiil FOLLOW UP 08/31/2014 Patient Education: Patient Medication Summary Completed 08/31/2014 Appointment: María Elena Appiah WPtel: [address] [place] [address] US LAB 08/27/2014 Appointment: María Elena Appiah WPtel: [address] [place] [address] US LAB 08/27/2014 Patient Education: Patient Medication Summary Completed 08/27/2014 Appointment: María Elena Appiah WPtel: [address] [place] [address] ACUTE ILLNESS 07/23/2014 Appointment: María Elena Appiah WPtel: [address] [place] [address] ACUTE ILLNESS 07/21/2014 Patient Education: Patient Medication Summary Completed 07/21/2014 Visit Plan: Kenalog 40mg IM today Contin ue narendra and singulair Add Flonase 07/15/2014 Appointment: María Elena Appiah WPtel: [address] [place] [address] ACUTE ILLNESS 07/15/2014 Appointment: María Elena Appiahtejaylin: [address] [place], [place] [phone] ACUTE ILLNESS 07/15/2014 Patient Education: Patient Medication Summary Completed 07/15/2014 Visit Plan: Will do metolazone 2.5mg prn with 6 potassium and see if causes as severe cramping Trial of of seroquel XR 50mg q PM with evening meal and let us know how works 05/18/2014 Appointment: María Elena Appiah WPtel: [address] [place], [place] [phone] 05/15 left message FOLLOW UP 05/18/2014 Patient Education: Patient Medication Summary Completed 05/18/2014 Appointment: María Elena Appiah WPtel: [address] [place], [place] [phone] LAB 05/14/2014 Patient Education: Patient Medication Summary Completed 05/14/2014 Appointment: María Elena Appiah WPtel: [address] [place], [place] [phone] [place] INJECTION 04/22/2014 Visit Plan: Rocephin and Kenluis f today a nd finish abx given from urgent care 04/21/2014 Appointment: María Elena Appiah WPtel: [address] [place] [phone] [place] INJECTION 04/21/2014 Patient Education: Patient Medication Summary Completed 04/21/2014 Appointment: June Flores WPtel: [address] [place], [place] [phone] ACUTE ILLNESS 03/04/2014 Patient Education: Patient Medication Summary Completed 03/04/2014 Appointment: María Elena Appiah WPtel: [address] [place], [place] [phone] [place] INJECTION 02/27/2014 Patient Education: Patient Medication Summary Completed 02/27/2014 Visit Plan: Cryotherapy as above to all lesions Patient wants to try no meds for insomnia for a while and see how goes 01/13/2014 Appointment: María Elena Appiah WPtel: [address] [place] [address] OFFICE SURGERY 01/13/2014 Patient Education: Patient Medication Summary Completed 01/13/2014 Visit Plan: Stop Melatonin Stop Soma Tri al of trazadone 75mg q HS See ENT for possible tubes as has had chronic ETD and serous otitis media with numerous steroids 12/24/2013 Appointment: María Elena Appiah WPtel: [address] [place] [address] ACUTE ILLNESS 12/24/2013 Patient Education: Patient Medication Summary Completed 12/24/2013 Visit Plan: Saline nasal flushes prn. Ty lenol/Motrin prn headache. Notify if persists/symptoms worsening. 11/12/2013 Appointment: María Elena Appiah WPtel: [address] [place] [address] ACUTE ILLNESS 11/12/2013 Patient Education: Patient Medication Summary Completed 11/12/2013 Appointment: María Elena Appiah WPtel: [address] [place] [address] ACUTE ILLNESS 10/21/2013 Patient Education: Patient Medication Summary Completed 10/21/2013 Visit Plan: Sleep hygiene and sleep rout ine Melatonin 10mg q HS Support stockings and observe 09/22/2013 Appointment: María Elena Appiah WPtel: [address] [place] [address] ACUTE ILLNESS 09/22/2013 Patient Education: Patient Medication Summary Completed 09/22/2013 Appointment: June Flores WPtel: [address] [place] [address] ACUTE ILLNESS 08/27/2013 Patient Education: Patient Medication Summary Completed 08/27/2013 Visit Plan: Proceed with CT scan of head /neck Proceed with occipital nerve injections Butrans 20mcg patch weekly until can get into see Dr. Mcdonough for injections 08/04/2013 Appointment: María Elena Appiah WPtel: [address] [place] [address] [place] FOLLOW UP 08/04/2013 Patient Education: Patient Medication Summary Completed 08/04/2013 Visit Plan: OMT done Daily neck stretche s, moist heat Increase Celebrex to 200mg BID Add flexeril 07/23/2013 Appointment: María Elena Appiah WPtel: [address] [place] [address] 07/22 voicemail FOLLOW UP 07/23/2013 Patient Education: Patient Medication Summary Completed 07/23/2013 Appointment: María Elena Appiah WPtel: [address] [place] [address] ACUTE ILLNESS 06/23/2013 Patient Education: Patient Medication Summary Completed 06/23/2013 Appointment: María Elena Appiah WPtel: [address] [place] [address] ACUTE ILLNESS 05/26/2013 Patient Education: Patient Medication Summary Completed 05/26/2013 Visit Plan: Decrease clonidine to 0.1mg TID If BP remains stable consider decreasing amlodopine Prednisone for 5 days BP check in 1mo 04/16/2013 Appointment: María Elena Appiah WPtel: [address] [place] [address] 04/14 pt called and confirmed appt FOLLOW UP 04/16/2013 Patient Education: Patient Medication Summary Completed 04/16/2013 Appointment: María Elena Appiah WPtel: [address] [place] [address] ACUTE ILLNESS 03/05/2013 Patient Education: Patient Medication Summary Completed 03/05/2013 Visit Plan: Pt has MARIA ELENA on with Dr. Sharonda Matthews patch Refill Hydrocodone early tomorrow 12/23/2012 Appointment: María Elena Appiah WPtel: [address] [place] [address] FOLLOW UP 12/23/2012 Patient Education: Patient Medication Summary Completed 12/23/2012 Appointment: Lashawn Eckert WPtel: [address] [place] [address] ACUTE ILLNESS 12/16/2012 Patient Education: Patient Medication Summary Completed 12/16/2012 Visit Plan: Proceed with updated MRI of LS spine Continue gabapentin and add soma and diclofenac Will likely need to go for another epidural 12/09/2012 Appointment: María Elena Appiah WPtel: [address] [place] [address] ACUTE ILLNESS 12/09/2012 Patient Education: Patient Medication Summary Completed 12/09/2012 Visit Plan: Injection as above Finish me drol dose pack Chiropracter this afternoon 12/04/2012 Appointment: María Elena Appiah WPtel: [address] [place] [address] ACUTE ILLNESS 12/04/2012 Patient Education: Patient Medication Summary Completed 12/04/2012 Appointment: Mary Tillman WPtel: [address] [place] [address] FOLLOW UP 11/22/2012 Patient Education: Patient Medication Summary Completed 11/22/2012 Appointment: María Elena Appiah WPtel: [address] [place] [address] ACUTE ILLNESS 11/21/2012 Patient Education: Patient Medication Summary Completed 11/21/2012 Appointment: María Elena Appiah WPtel: [address] [place] [address] BP CHECK 11/07/2012 Patient Education: Patient Medication [...] BP re-check. 10/29/2012 Appointment: Lashawn Eckert WPtel: [address] [place] [address] ACUTE ILLNESS 10/29/2012 Patient Education: Patient Medication Summary Completed 10/29/2012 Appointment: María Elena Appiah WPtel: [address] [place] [address] ACUTE ILLNESS 10/14/2012 Patient Education: Patient Medication Summary Completed 10/14/2012 Appointment: María Elena Appiah WPtel: [address] [place] [address] UA 09/27/2012 Patient Education: Patient Medication Summary Completed 09/27/2012 Appointment: María Elena Appiah WPtel: [address] [place] [address] ACUTE ILLNESS 09/25/2012 Patient Education: Patient Medication Summary Completed 09/25/2012 Appointment: María Elena Appiah WPtel: [address] [place] [address] BP CHECK 09/24/2012 Appointment: María Elena Appiah WPtel: [address] [place] [address] ACUTE ILLNESS 08/29/2012 Patient Education: Patient Medication Summary Completed 08/29/2012 Visit Plan: Cryotherapy as above See Karlos m for right ear lesion--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 ACUTE ILLNESS 05/06/2012 Patient Education: Patient Medication Summary Completed 05/06/2012 Visit Plan: Pt wants to hold on any furt her sleep medications 04/03/2012 Appointment: María Elena Appiah WPtel: [address] [place] [address] FOLLOW UP 04/03/2012 Patient Education: Patient Medication Summary Completed 04/03/2012 Appointment: María Elena Appiah WPtel: [address] [place] [address] FOLLOW UP 03/19/2012 Patient Education: Patient Medication Summary Completed 03/19/2012 Appointment: María Elena Appiah WPtel: [address] [place] [address] BP CHECK 02/22/2012 Patient Education: Patient Medication Summary Completed 02/22/2012 Appointment: María Elena Appiah WPtel: [address] [place] [address] BP CHECK 02/21/2012 Patient Education: Patient Medication Summary Completed 02/21/2012 Visit Plan: Doxycycline and bactroban fo r foot Supportive care on ankles and knees Add norvasc for BP 02/20/2012 Appointment: María Elena Appiah WPtel: [address] [place] [address] ER Follow UP 02/20/2012 Patient Education: Patient Medication Summary Completed 02/20/2012 Appointment: María Elena Appiah WPtel: [address] [place] [address] ACUTE ILLNESS 01/30/2012 Patient Education: Patient Medication Summary Completed 01/30/2012 Appointment: María Elena Appiah WPtel: [address] [place] [address] ACUTE ILLNESS 01/24/2012 Patient Education: Patient Medication Summary Completed 01/24/2012 Visit Plan: Daily back stretches, moist heat, Biofreeze prn OMT done 01/10/2012 Appointment: María Elena Appiah WPtel: [address] [place] [address] ACUTE ILLNESS 01/10/2012 Patient Education: Patient Medication Summary Completed 01/10/2012 Appointment: María Elena Appiahtel: [address] [place] [address] FOLLOW UP 12/11/2011 Patient Education: Patient Medication Summary Completed 12/11/2011 Appointment: María Elena Appiahtel: [address] [place] [address] ACUTE ILLNESS 11/09/2011 Patient Education: Patient Medication Summary Completed 11/09/2011 Appointment: María Elena Appiahtel: [address] [place] [address] ACUTE ILLNESS 09/13/2011 Patient Education: Patient Medication Summary Completed 09/13/2011 Visit Plan: Check CBC, TSH, Free T4, CMP , ESR, Vit D, B12 now Start Prednisone today 08/31/2011 Appointment: María Elena Appiahtel: [address] [place] [address] ACUTE ILLNESS 08/31/2011 Patient Education: Patient Medication Summary Completed 08/31/2011 Appointment: María Elena Appiahtel: [address] [place] [address] [place] INJECTION 07/20/2011 Patient Education: Patient Medication Summary Completed 07/20/2011 Visit Plan: Continue current meds Monite r BP Cont stretches from PT 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 07/06/2011 Appointment: María Elena Appiahtel: [address] [place] [address] FOLLOW UP 07/06/2011 Patient Education: Patient Medication Summary Completed 07/06/2011 Appointment: María Elena Appiahtel: [address] [place] [address] BP CHECK 06/06/2011 Patient Education: Patient Medication Summary Completed 06/06/2011 Visit Plan: Add Bystolic at 2.5mg QAM Ad d Robaxin 750mg 2 po q HS BP check in 2wks 05/22/2011 Appointment: María Elena Appiah WPtel: [address] [place], [place] [phone] FOLLOW UP 05/22/2011 Patient Education: Patient Medication Summary Completed 05/22/2011 Appointment: María Elena Appiah WPtel: [address] [place], [place] [phone] ER Follow UP 05/09/2011 Patient Education: Patient Medication Summary Completed 05/09/2011 Appointment: María Elena Appiah WPtel: [address] [place], [place] [phone] FOLLOW UP 02/22/2011 Visit Plan: Rx written for Hydrocodone 1 0/325mg #240 See Ortho 02/14/2011 Appointment: María Elena Appiah WPtel: [address] [place], [place] [id number] OMT 02/14/2011 Patient Education: Patient Medication [...] lab work. 02/03/2011 Appointment: Lashawn Eckert WPtel: [address] [place], [place] [phone] ACUTE ILLNESS 02/03/2011 Patient Education: Patient Medication Summary Completed 02/03/2011 Visit Plan: OMT done Cont daily stretche s 01/31/2011 Appointment: María Elena Appiah WPtel: [address] [place] [address] ACUTE ILLNESS 01/31/2011 Patient Education: Patient Medication Summary Completed 01/31/2011 Visit Plan: Continue pain meds OMT done Proceed with PT No work this summer01/25/2011 Appointment: María Elena Appiah WPtel: [address] [place] [address] ACUTE ILLNESS 01/25/2011 Patient Education: Patient Medication Summary Completed 01/25/2011 Visit Plan: Start PT Long discussion abo ut getting pain meds from only us and can only have max of 4grams of tylenol per day Change to Hydrocodone 10/325mg 1- 2 po TID prn pain--#180 called to Radha 01/18/2011 Appointment: María Elena Appiah WPtel: [address] [place] [address] FOLLOW UP 01/18/2011 Patient Education: Patient Medication Summary Completed 01/18/2011 Visit Plan: Daily back stretches, moist heat, Biofreeze prn 11/29/2010 Appointment: María Elena Appiah WPtel: [address] [place] [address] ER Follow UP 11/29/2010 Patient Education: Patient Medication Summary Completed 11/29/2010 Visit Plan: Saline nasal flushes prn. Ty lenol/Motrin prn headache. Notify if persists/symptoms worsening. Finish augmentin Add Medrol Dose Pack 10/10/2010 Appointment: María Elena Appiah WPtel: [address] [place] [address] ACUTE ILLNESS 10/10/2010 Patient Education: Patient Medication Summary Completed 10/10/2010 Visit Plan: Cryotherapy x3 to multiple l esions on both forearms 07/19/2010 Appointment: María Elena Appiah WPtel: [address] [place] [address] OFFICE SURGERY 07/19/2010 Patient Education: Patient Medication Summary Completed 07/19/2010 Appointment: María Elena Appiah WPtel: [address] [place] [address] BP CHECK 07/06/2010 Patient Education: Patient Medication Summary Completed 07/06/2010 Appointment: María Elena Appiah WPtel: [address] [place] [address] US BP CHECK 06/30/2010 Patient Education: Patient Medication Summary Completed 06/30/2010 Appointment: María Elena Appiah WPtel: [address] [place] [address] BP CHECK 06/20/2010 Patient Education: Patient Medication Summary Completed 06/20/2010 Visit Plan: Change Diovan to Exforge 160 /5mg QD OMT done to thoracics BP check in 2wks 06/07/2010 Appointment: María Elena Appiah WPtel: [address] [place] [address] FOLLOW UP 06/07/2010 Patient Education: Patient Medication Summary Completed 06/07/2010 Appointment: Mraía Elena Appiah WPtel: [address] [place] [address] BP CHECK 06/03/2010 Patient Education: Patient Medication Summary Completed 06/03/2010 Appointment: María Elena Appiah WPtel: [address] [place] [address] BP CHECK 06/01/2010 Patient Education: Patient Medication Summary Completed 06/01/2010 Visit Plan: Irritated skin tags to left neck x2 excised at base with scissors and base cauterized 05/30/2010 Appointment: María Elena Appiah WPtel: [address] [place] [address] OFFICE SURGERY 05/30/2010 Patient Education: Patient Medication Summary Completed 05/30/2010 Visit Plan: Saline nasal flushes prn. Ty lenol/Motrin prn headache. Notify if persists/symptoms worsening. Restart Nasonex Has allergy testing set for May 25 04/27/2010 Appointment: María Elena Appiah WPtel: [address] [place] [address] ACUTE ILLNESS 04/27/2010 Patient Education: Patient Medication Summary Completed 04/27/2010 Visit Plan: Saline nasal flushes prn. Ty lenol/Motrin prn headache. Notify if persists/symptoms worsening. Omnaris BID plus injections 04/05/2010 Appointment: María Elena Appiah WPtel: [address] [place] [address] ACUTE ILLNESS 04/05/2010 Patient Education: Patient Medication Summary Completed 04/05/2010 Visit Plan: Saline nasal flushes prn. Ty lenol/Motrin prn headache. Notify if persists/symptoms worsening. 03/09/2010 Appointment: María Elena Appiah WPtel: [address] [place] [address] ACUTE ILLNESS 03/09/2010 Patient Education: Patient Medication Summary Completed 03/09/2010 Visit Plan: Cont Clonidine as is Cont Pr emarin Fwup with surgery as scheduled 03/03/2010 Appointment: María Elena Appiah WPtel: [address] [place] [address] FOLLOW UP 03/03/2010 Patient Education: Patient Medication Summary Completed 03/03/2010 Visit Plan: Check Pelvic US now Dukee tacho Sal C vs Hysterectomy 01/17/2010 Appointment: María Elena Appiah WPtel: [address] [place] [address] ACUTE ILLNESS 01/17/2010 Patient Education: Patient Medication Summary Completed 01/17/2010 Visit Plan: Check fasting lab and schedu le Mammogram 2gm Na Diet Trial of Ambien 10mg qhs Fwup pending lab results 12/27/2009 Appointment: María Elena Appiah WPtel: [address] [place] [address] ESTABLISHED PATIENT 12/27/2009 Patient Education: Patient Medication Summary Completed 12/27/2009 Referral: Canelo Overton WPtel: [address] [id number] [place] Referral Initiated Referral: Philipp Flores WPtel: [address] [id number] [place] Referral Appointment Requested Instructions Comment . [...]
--- OUTSIDE RECORDS SUMMARY | 2020-03-13 06:34 | XMS REPORT | CCD ---
Author Author Gale Appiah D.O. 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 Name Role Phone María Elena Appiah D.O., PP Unavailable CCM Unavailable Summary Purpose Interface Exchange Insurance Providers Payer name Policy type / Coverage type Covered alliance party ID Effective Begin Date Effective End Date [facility] Commercial Insurance [id number] Unknown Family History Family History data not found Social History Social History Element Codes Description Effective Dates Tobacco history SNOMED CT: 255771741 Never smoker 05/22/2011 Allergies, Adverse Reactions, Alerts Substance Reaction Codes Entered Date Inactivated Date Status * NO KNOWN FOOD ALLERGIES Unknown 12/27/2009 No Inactiv e Date Active _ Unknown 03/10/2013 No Inactive Date Active _ Unknown 12/27/2009 No Inactive Date Active SULFA (SULFONAMIDE ANTIBIOTICS) Unknown 12/27/2009 No I nactive Date Active Problems Condition Codes Effective Dates Condition Status Cervicalgia ICD-9: 723.1 ICD-10: M54.2 09/29/2019 Active Essential (primary) hypertension ICD-9: 401.9 ICD-10: I10 05/14/2014 Active Hyperglycemia, unspecified ICD-9: 790.29 ICD-10: R73.9 12/10/2017 Active Mixed hyperlipidemia ICD-9: 272.4 ICD-10: E78.2 08/27/2014 Active Fall from bed, sequela ICD-9: E929.3 ICD-10: W06.XXXS 05/28/2019 Active Hormone replacement therapy ICD-9: V07.4 ICD-10: Z79.890 01/22/2019 Active Intervertebral disc disorders with radiculopathy, lumb ar region ICD-9: 722.10 ICD-10: M51.16 04/10/2017 Active Type 2 diabetes mellitus with hyperglycemia ICD-9: 250 .02 ICD-10: E11.65 12/18/2017 Active Abnormal weight gain ICD-9: 783.1 ICD-10: [...] Start Date Stop Date Status Fill Instructions gabapentin 300 mg capsule RxNorm: 378570 TAKE ONE CAPSU LE BY MOUTH EVERY NIGHT AT BEDTIME 09/19/2019 No Stop Date Active baclofen 10 mg tablet RxNorm: 959755 TAKE ONE TABLET BY MOUTH THREE TIMES A DAY NEEDED 09/19/2019 No Stop Date Active Klor-Con 8 mEq tablet,extended release RxNorm: 785499 T FARRUKH ONE TABLET BY MOUTH TWICE A DAY 1 Tablet(s) Oral two times a day 09/19/2019 10/19/2019 Act darion hydrocodone 10 mg-acetaminophen 325 mg tablet RxNorm: 136433 1-2 Tablet(s) Oral three times a day as needed for pain 09/19/2019 No Stop Date Active duloxetine 60 mg capsule,delayed release RxNorm: 643996 TAKE ONE CAPSULE BY MOUTH DAILY 09/11/2019 No Stop Date Active Lipitor 10 mg tablet RxNorm: 115868 TAKE ONE TABLET BY MOUTH AT BEDTIME 09/11/2019 No Stop Date Active lisinopril 20 mg tablet RxNorm: 550741 TAKE ONE TABLET BY MOUTH DAILY .... THIS REPLACE 10MG TABLETS 09/11/2019 No Stop Date Active triamterene 75 mg-hydrochlorothiazide 50 mg tablet RxNorm: 3 88527 TAKE ONE TABLET BY MOUTH DAILY 09/11/2019 No Stop Date Active allopurinol 300 mg tablet RxNorm: 000499 TAKE ONE TABLET BY LOPEZ TH DAILY 09/11/2019 No Stop Date Active celecoxib 200 mg capsule RxNorm: 487130 TAKE ONE CAPSUL E BY MOUTH TWICE A DAY NEEDED FOR PAIN 09/11/2019 No Stop Date Active clonidine HCl 0.1 mg tablet RxNorm: 930199 TAKE ONE TAB LET BY MOUTH FOUR TIMES A DAY 09/11/2019 No Stop Date Active doxepin 25 mg capsule RxNorm: 8521977 1 Capsule(s) Oral every night at bedtime as needed for sleep 08/21/2019 11/18/2019 Active hydrocodone 10 mg-acetaminophen 325 mg tablet RxNorm: 586066 1-2 Tablet(s) PO TID 08/12/2019 No Stop Date Active as needed for pa in - Previous quantity #240, will start dosing for #180 in April 2011 per Doctor Td. Medrol (Dustin) 4 mg tablets in a dose pack RxNorm: 406911 Tablet(s) Oral As Directed 07/21/2019 No Stop Date Active Premarin 1.25 mg tablet RxNorm: 183685 1 Tablet(s) Oral QD 07/02/20 19 03/28/2020 Active hydrocodone 10 mg-acetaminophen 325 mg tablet RxNorm: 527708 1-2 Tablet(s) PO TID 07/01/2019 08/11/2019 Inactive as needed for pa in - Previous quantity #240, will start dosing for #180 in April 2011 per Doctor Td. gabapentin 300 mg capsule RxNorm: 877674 1 Capsule(s) PO QHS 201809/18/2019 Inactive celecoxib 200 mg capsule RxNorm: 911660 1 Capsule(s) Or al two times a day as needed for pain 06/27/2019 06/27/2019 Inactive Singulair 10 mg tablet RxNorm: 813794 TAKE ONE TABLET BY MOUTH JOSÉ Y 06/24/2019 No Stop Date Active furosemide 40 mg tablet RxNorm: 177776 TAKE ONE TABLET BY MOUTH EVERY MORNING NEEDED FOR EDEMA . TAKE WITH POTASSIUM 06/24/2019 No Stop Date Active doxepin 25 mg capsule RxNorm: 6214313 TAKE ONE CAPSULE B Y MOUTH EVERY NIGHT AT BEDTIME NEEDED FOR SLEEP 06/24/2019 08/20/2019 Inactive lisinopril 20 mg tablet RxNorm: 914682 TAKE ONE TABLET BY MOUTH DAILY .... THIS REPLACE 10MG TABLETS 06/24/2019 09/10/2019 Inactive nystatin-triamcinolone 100,000 unit/g-0.1 % topical cream Rx Norm: 7166923 1 Application Topical two times a day 06/12/2019 06/19/2019 Inactive apply BID for 1 week nystatin-triamcinolone 100,000 unit/g-0.1 % topical cream Rx Norm: 1222888 1 Application Topical two times a day 06/12/2019 06/11/2019 Inactive apply BID for 1 week hydrocodone 10 mg-acetaminophen 325 mg tablet RxNorm: 994383 1-2 Tablet(s) PO QID as needed for pain MUST LAST 30 DAYS 05/28/2019 06/26/2019 Inactiv e (Response to an electronic controlled substance refill request - [facility] [id number]) baclofen 20 mg tablet RxNorm: 699798 1 Tablet(s) PO TID as needed for muscle spasm 05/19/2019 05/27/2019 Inactive gabapentin 300 mg capsule RxNorm: 594300 1 Capsule(s) PO QHS 201805/27/2019 Inactive lisinopril 20 mg tablet RxNorm: 503007 1 Tablet(s) PO Q D TAKE ONE TABLET BY MOUTH DAILY, REPLACES 10 MG DOSE 05/19/2019 06/23/2019 Inactive doxepin 25 mg capsule RxNorm: 1701028 TAKE ONE CAPSULE B Y MOUTH EVERY NIGHT AT BEDTIME NEEDED FOR SLEEP 05/16/2019 06/14/2019 Inactive lisinopril 20 mg tablet RxNorm: 185232 TAKE ONE TABLET BY MOUTH DAILY, REPLACES 10 MG DOSE 05/16/2019 05/18/2019 Inactive Singulair 10 mg tablet RxNorm: 672160 TAKE ONE TABLET BY MOUTH JOSÉ Y 05/16/2019 06/14/2019 Inactive gabapentin 300 mg capsule RxNorm: 101570 1 Capsule(s) PO QHS 201805/04/2019 Inactive estropipate 1.5 mg tablet RxNorm: 050489 1 Tablet(s) PO QD 05/05/2005/27/2019 Inactive estropipate 1.5 mg tablet RxNorm: 373843 1 Tablet(s) PO QD 05/05/2005/04/2019 Inactive gabapentin 300 mg capsule RxNorm: 776597 1 Capsule(s) PO QHS 201805/18/2019 Inactive hydrocodone 10 mg-acetaminophen 325 mg tablet RxNorm: 815073 1-2 Tablet(s) PO QID as needed for pain MUST LAST 30 DAYS 04/25/2019 05/24/2019 Inactiv e (Response to an electronic controlled substance refill request - RxReferenceNumber: [id number]) metoprolol tartrate 100 mg tablet RxNorm: 051128 TAKE O NE TABLET BY MOUTH TWICE A DAY 04/24/2019 06/22/2019 Inactive cyclobenzaprine 10 mg tablet RxNorm: 993256 TAKE ONE TA BLET BY MOUTH THREE TIMES A DAY NEEDED FOR MUSCLE SPASMS 04/24/2019 05/18/2019 Inactive Lyrica 75 mg capsule RxNorm: 802355 1 Capsule(s) PO QHS 03/25/2019 Inactive duloxetine 60 mg capsule,delayed release RxNorm: 317007 TAKE ONE CAPSULE BY MOUTH DAILY 03/21/2019 05/19/2019 Inactive triamterene 75 mg-hydrochlorothiazide 50 mg tablet RxNorm: 3 13959 TAKE ONE TABLET BY MOUTH DAILY 03/21/2019 05/19/2019 Inactive Klor-Con 8 mEq tablet,extended release RxNorm: 517650 T FARRUKH ONE TABLET BY MOUTH TWICE A DAY 03/21/2019 09/18/2019 Inactive Lipitor 10 mg tablet RxNorm: 344812 TAKE ONE TABLET BY MOUTH AT BEDTIME 03/21/2019 09/10/2019 Inactive clonidine HCl 0.1 mg tablet RxNorm: 058206 TAKE ONE TAB LET BY MOUTH FOUR TIMES A DAY 03/21/2019 05/19/2019 Inactive allopurinol 300 mg tablet RxNorm: 216738 TAKE ONE TABLET BY LOPEZ TH DAILY 03/21/2019 05/19/2019 Inactive hydrocodone 10 mg-acetaminophen 325 mg tablet RxNorm: 106336 1-2 Tablet(s) PO QID as needed for pain MUST LAST 30 DAYS 02/28/2019 03/29/2019 Inactiv e (Response to an electronic controlled substance refill request - RxReferenceNumber: [id number]) furosemide 40 mg tablet RxNorm: 286400 TAKE ONE TABLET BY MOUTH EVERY MORNING NEEDED FOR EDEMA . TAKE WITH POTASSIUM 02/21/2019 03/22/2019 Inactive cyclobenzaprine 10 mg tablet RxNorm: 224872 TAKE ONE TA BLET BY MOUTH THREE TIMES A DAY NEEDED FOR MUSCLE SPASMS 02/21/2019 04/21/2019 Inactive lisinopril 20 mg tablet RxNorm: 067704 TAKE ONE TABLET BY MOUTH DAILY, REPLACES 10 MG DOSE 02/21/2019 05/15/2019 Inactive doxepin 25 mg capsule RxNorm: 1856300 TAKE ONE CAPSULE B Y MOUTH EVERY NIGHT AT BEDTIME NEEDED FOR SLEEP 02/21/2019 05/15/2019 Inactive nystatin 100,000 unit/gram topical cream RxNorm: 333545 APPLY TO AFFECTED AREA(S) TWO TIMES A DAY 02/21/2019 03/22/2019 Inactive estradiol 1 mg tablet RxNorm: 469547 2 Tablet(s) PO QD replaces premarin 01/22/2019 05/04/2019 Inactive lisinopril 20 mg tablet RxNorm: 868671 TAKE ONE TABLET BY MOUTH DAILY, REPLACES 10 MG DOSE 01/20/2019 02/18/2019 Inactive cyclobenzaprine 10 mg tablet RxNorm: 644334 TAKE ONE TA BLET BY MOUTH THREE TIMES A DAY NEEDED FOR MUSCLE SPASMS 01/20/2019 02/18/2019 Inactive metoprolol tartrate 100 mg tablet RxNorm: 345460 TAKE O NE TABLET BY MOUTH TWICE A DAY 01/20/2019 02/18/2019 Inactive cyclobenzaprine 10 mg tablet RxNorm: 389873 TAKE ONE TA BLET BY MOUTH THREE TIMES A DAY NEEDED FOR MUSCLE SPASMS 12/19/2018 01/17/2019 Inactive lisinopril 20 mg tablet RxNorm: 590326 TAKE ONE TABLET BY MOUTH DAILY, REPLACES 10 MG DOSE 12/19/2018 01/17/2019 Inactive duloxetine 60 mg capsule,delayed release RxNorm: 621501 TAKE ONE CAPSULE BY MOUTH DAILY 12/19/2018 01/17/2019 Inactive Lipitor 10 mg tablet RxNorm: 279493 TAKE ONE TABLET BY MOUTH AT BEDTIME 12/19/2018 01/17/2019 Inactive cyclobenzaprine 10 mg tablet RxNorm: 419753 1 Tablet(s) PO TID as needed for muscle spasm 11/19/2018 12/18/2018 Inactive Singulair 10 mg tablet RxNorm: 162602 1 Tablet(s) PO QD 11/19/2018 Inactive lisinopril 20 mg tablet RxNorm: 092637 TAKE ONE TABLET BY MOUTH DAILY, REPLACES 10 MG DOSE 11/15/2018 12/18/2018 Inactive hydrocodone 10 mg-acetaminophen 325 mg tablet RxNorm: 868769 1-2 Tablet(s) PO QID as needed for pain MUST LAST 30 DAYS 11/13/2018 12/12/2018 Inactiv e (Response to an electronic controlled substance refill request - RxReferenceNumber: [id number]) nystatin 100,000 unit/gram topical cream RxNorm: 690448 APPLY TO AFFECTED AREA(S) TWO TIMES A DAY 10/23/2018 11/06/2018 Inactive lisinopril 20 mg tablet RxNorm: 557919 1 Tablet(s) PO QD replac es 10mg dose 10/18/2018 11/14/2018 Inactive hydrocodone 10 mg-acetaminophen 325 mg tablet RxNorm: 302625 1-2 Tablet(s) QID as needed for pain MUST LAST 30 DAYS 10/08/2018 11/06/2018 Inactive (Response to an electronic controlled substance refill request - RxReferenceNumber: [id number]) lisinopril 10 mg tablet RxNorm: 285472 1 Tablet(s) PO QD 10/03/2018 0 01/21/2019 Inactive Celebrex 200 mg capsule RxNorm: 507407 TAKE ONE CAPSULE BY MOUT H TWICE A DAY 09/30/2018 05/04/2019 Inactive cyclobenzaprine 10 mg tablet RxNorm: 810435 TAKE ONE TA BLET BY MOUTH THREE TIMES A DAY NEEDED FOR MUSCLE SPASMS 09/30/2018 11/18/2018 Inactive doxepin 25 mg capsule RxNorm: 3427713 TAKE ONE CAPSULE B Y MOUTH EVERY NIGHT AT BEDTIME NEEDED 09/05/2018 10/16/2018 Inactive omeprazole 40 mg capsule,delayed release RxNorm: 607954 TAKE ONE CAPSULE BY MOUTH DAILY 09/05/2018 01/21/2019 Inactive furosemide 40 mg tablet RxNorm: 522543 TAKE ONE TABLET BY MOUTH EVERY MORNING NEEDED FOR EDEMA . TAKE WITH POTASSIUM 09/05/2018 11/03/2018 Inactive phentermine 37.5 mg tablet RxNorm: 076755 1 Tablet(s) PO QAM 201701/21/2019 Inactive doxepin 25 mg capsule RxNorm: 3684036 1 Capsule(s) PO QH S as needed for sleep TAKE ONE CAPSULE BY MOUTH EVERY NIGHT AT BEDTIME NEEDED 08/27/2018 09/04/2018 Inactive Keflex 500 mg capsule RxNorm: 394718 1 Capsule(s) PO TID 08/09/2018 1 10/19/2017 Inactive Diflucan 100 mg tablet RxNorm: 115186 1 Tablet(s) PO QD 08/09/2018 Inactive Premarin 1.25 mg tablet RxNorm: 755163 2 Tablet(s) PO QD 08/09/2018 0 05/04/2019 Inactive Zofran ODT 4 mg disintegrating tablet RxNorm: 536983 1 Tablet(s) PO Q4H as needed for nausea 08/09/2018 01/21/2019 Inactive metoprolol tartrate 100 mg tablet RxNorm: 650539 TAKE O NE TABLET BY MOUTH TWICE A DAY 2018 10/04/2018 Inactive doxepin 25 mg capsule RxNorm: 1792118 TAKE ONE CAPSULE B Y MOUTH EVERY NIGHT AT BEDTIME NEEDED 2018 08/26/2018 Inactive cyclobenzaprine 10 mg tablet RxNorm: 647171 TAKE ONE TA BLET BY MOUTH THREE TIMES A DAY NEEDED FOR MUSCLE SPASMS 2018 09/29/2018 Inactive hydrocodone 10 mg-acetaminophen 325 mg tablet RxNorm: 437208 1-2 Tablet(s) QID as needed for pain MUST LAST 30 DAYS 07/29/2018 08/27/2018 Inactive (Response to an electronic controlled substance refill request - RxReferenceNumber: [id number]) nystatin 100,000 unit/gram topical powder RxNorm: 411755 Applic ation TOP BID 07/22/2018 08/04/2018 Inactive doxepin 25 mg capsule RxNorm: 6664128 1 Capsule(s) PO QHS as needed 07/22/2018 08/05/2018 Inactive triamterene 75 mg-hydrochlorothiazide 50 mg tablet RxNorm: 3 74928 TAKE ONE TABLET BY MOUTH DAILY 07/05/2018 10/02/2018 Inactive duloxetine 60 mg capsule,delayed release RxNorm: 100302 TAKE ONE CAPSULE BY MOUTH DAILY 07/05/2018 09/02/2018 Inactive Klor-Con 8 mEq tablet,extended release RxNorm: 421256 T FARRUKH ONE TABLET BY MOUTH TWICE A DAY 07/05/2018 10/02/2018 Inactive Lipitor 10 mg tablet RxNorm: 479026 TAKE ONE TABLET BY MOUTH AT BEDTIME 07/05/2018 09/02/2018 Inactive allopurinol 300 mg tablet RxNorm: 656924 TAKE ONE TABLET BY LOPEZ TH DAILY 07/05/2018 10/02/2018 Inactive clonidine HCl 0.1 mg tablet RxNorm: 963745 TAKE ONE TAB LET BY MOUTH FOUR TIMES A DAY 07/05/2018 10/02/2018 Inactive hydrocodone 10 mg-acetaminophen 325 mg tablet RxNorm: 339791 1-2 Tablet(s) QID as needed for pain MUST LAST 30 DAYS 06/28/2018 07/27/2018 Inactive (Response to an electronic controlled substance refill request - RxReferenceNumber: [id number]) MediHoney (calcium alginate-honey) 4" X 5" bandage RxNorm: 1 Application TOP QD 06/17/2018 06/26/2018 Inactive honey-hydrocolloid dressing 4" X 5" RxNorm: 1 Application TOP QD 06/17/2018 07/16/2018 Inactive furosemide 40 mg tablet RxNorm: 616054 TAKE ONE TABLET BY MOUTH EVERY MORNING NEEDED FOR EDEMA . TAKE WITH POTASSIUM 06/10/2018 07/09/2018 Inactive This is a refill request. hydrocodone 10 mg-acetaminophen 325 mg tablet RxNorm: 679021 1-2 Tablet(s) QID as needed for pain MUST LAST 30 DAYS 05/30/2018 06/27/2018 Inactive (Response to an electronic controlled substance refill request - RxReferenceNumber: [id number]) acyclovir 800 mg tablet RxNorm: 233303 1 Tablet(s) PO 5x day 201705/22/2018 Inactive Premarin 1.25 mg tablet RxNorm: 888426 1-2 Tablet(s) PO QD 05/15/20 18 07/13/2018 Inactive cyclobenzaprine 10 mg tablet RxNorm: 119948 1 Tablet(s) PO TID as needed for muscle spasm 05/09/2018 05/08/2018 Inactive Medrol (Dustin) 4 mg tablets in a dose pack RxNorm: 757189 Tablet(s) PO As Directed 05/02/2018 06/16/2018 Inactive hydrocodone 10 mg-acetaminophen 325 mg tablet RxNorm: 027600 1-2 Tablet(s) QID as needed for pain MUST LAST 30 DAYS 04/30/2018 05/29/2018 Inactive (Response to an electronic controlled substance refill request - RxReferenceNumber: [id number]) duloxetine 60 mg capsule,delayed release RxNorm: 318650 TAKE ONE CAPSULE BY MOUTH DAILY 04/16/2018 05/15/2018 Inactive Celebrex 200 mg capsule RxNorm: 676566 TAKE ONE CAPSULE BY MOUT H TWICE A DAY 04/16/2018 06/14/2018 Inactive Singulair 10 mg tablet RxNorm: 084515 TAKE ONE TABLET BY MOUTH JOSÉ Y 04/16/2018 11/19/2018 Inactive Lipitor 10 mg tablet RxNorm: 445102 TAKE ONE TABLET BY MOUTH AT BEDTIME 04/16/2018 05/15/2018 Inactive hydrocodone 10 mg-acetaminophen 325 mg tablet RxNorm: 182460 1-2 Tablet(s) QID as needed for pain MUST LAST 30 DAYS 03/29/2018 04/27/2018 Inactive (Response to an electronic controlled substance refill request - RxReferenceNumber: [id number]) cyclobenzaprine 10 mg tablet RxNorm: 006439 1 Tablet(s) PO TID as needed for muscle spasm 03/18/2018 05/09/2018 Inactive omeprazole 40 mg capsule,delayed release RxNorm: 159660 1 Capsu le(s) PO QD 02/26/2018 08/24/2018 Inactive hydrocodone 10 mg-acetaminophen 325 mg tablet RxNorm: 166129 1-2 Tablet(s) QID as needed for pain MUST LAST 30 DAYS 02/26/2018 03/27/2018 Inactive (Response to an electronic controlled substance refill request - RxReferenceNumber: [id number]) metoprolol tartrate 100 mg tablet RxNorm: 451905 1 Tablet(s) PO BID 02/18/2018 08/05/2018 Inactive Lyrica 75 mg capsule RxNorm: 425328 1 Capsule(s) PO QHS 01/30/2018 Inactive phentermine 37.5 mg tablet RxNorm: 373736 1 Tablet(s) PO QAM 201706/16/2018 Inactive hydrocodone 10 mg-acetaminophen 325 mg tablet RxNorm: 737953 1-2 Tablet(s) QID as needed for pain MUST LAST 30 DAYS 01/29/2018 02/25/2018 Inactive (Response to an electronic controlled substance refill request - RxReferenceNumber: [id number]) Klor-Con 8 mEq tablet,extended release RxNorm: 139007 1 Tablet( s) PO BID 01/14/2018 07/04/2018 Inactive allopurinol 300 mg tablet RxNorm: 050381 1 Tablet(s) PO QD 01/15/2007/04/2018 Inactive Lipitor 10 mg tablet RxNorm: 900486 1 Tablet(s) PO QHS 01/14/201812/2017 Inactive triamterene 75 mg-hydrochlorothiazide 50 mg tablet RxNorm: 3 86972 1 Tablet(s) PO QD 01/14/2018 07/04/2018 Inactive hydrocodone 10 mg-acetaminophen 325 mg tablet RxNorm: 693797 1-2 Tablet(s) QID as needed for pain MUST LAST 30 DAYS 12/27/2017 01/25/2018 Inactive (Response to an electronic controlled substance refill request - RxReferenceNumber: [id number]) Onglyza 5 mg tablet RxNorm: 573553 1 Tablet(s) PO QD 12/18/201701/29 Inactive metformin 500 mg tablet RxNorm: 953191 1 Tablet(s) PO BID 12/11/2017 12/10/2017 Inactive metformin 500 mg tablet RxNorm: 676877 1 Tablet(s) PO BID 12/11/2017 12/17/2017 Inactive furosemide 40 mg tablet RxNorm: 345847 1 Tablet(s) PO Q AM prn edema--take with potassium 12/11/2017 06/08/2018 Inactive cyclobenzaprine 10 mg tablet RxNorm: 034740 1 Tablet(s) PO TID as needed for muscle spasm 12/11/2017 03/18/2018 Inactive hydrocodone 10 mg-acetaminophen 325 mg tablet RxNorm: 149897 1-2 Tablet(s) QID as needed for pain MUST LAST 30 DAYS 10/23/2017 11/21/2017 Inactive (Response to an electronic controlled substance refill request - RxReferenceNumber: [id number]) Lipitor 10 mg tablet RxNorm: 760247 1 Tablet(s) PO QHS 10/16/201703/2018 Inactive cyclobenzaprine 10 mg tablet RxNorm: 238116 1 Tablet(s) PO TID as needed for muscle spasm 10/09/2017 12/10/2017 Inactive hydroxyzine HCl 25 mg tablet RxNorm: 225577 1 Tablet(s) PO BID as needed for anxiety 09/20/2017 01/29/2018 Inactive Effexor XR 75 mg capsule,extended release RxNorm: 243913 1 Caps ule(s) PO QD 09/20/2017 01/29/2018 Inactive metoprolol tartrate 100 mg tablet RxNorm: 162305 1 Tablet(s) PO BID 08/20/2017 02/18/2018 Inactive baclofen 20 mg tablet RxNorm: 314018 1 Tablet(s) PO TID as needed for muscle spasm 08/20/2017 01/21/2019 Inactive clonidine HCl 0.1 mg tablet RxNorm: 876287 1 Tablet(s) PO QID 08/2005/16/2018 Inactive Seroquel 25 mg tablet RxNorm: 717045 1 Tablet(s) PO QHS 08/17/2017 Inactive Seroquel 25 mg tablet RxNorm: 102313 1 Tablet(s) PO QHS 08/17/2017 Inactive Diflucan 100 mg tablet RxNorm: 340858 TAKE ONE TABLET BY MOUTH JOSÉ Y 07/25/2017 08/07/2017 Inactive hydrocodone 10 mg-acetaminophen 325 mg tablet RxNorm: 626359 1-2 Tablet(s) QID as needed for pain MUST LAST 30 DAYS 07/19/2017 08/17/2017 Inactive (Response to an electronic controlled substance refill request - RxReferenceNumber: [id number]) clindamycin 300 mg capsule RxNorm: 102959 1 Capsule(s) PO TID 07/1907/28/2017 Inactive clotrimazole-betamethasone 1 %-0.05 % topical cream RxNorm: 730692 Application TOP BID to elbow rash 07/19/2017 06/16/2018 Inactive Singulair 10 mg tablet RxNorm: 683290 Tablet(s) TAKE ONE TABLET BY MOUTH DAILY 07/18/2017 04/13/2018 Inactive triamterene 75 mg-hydrochlorothiazide 50 mg tablet RxNorm: 3 08757 1 Tablet(s) PO QD 07/18/2017 01/14/2018 Inactive Celebrex 200 mg capsule RxNorm: 265765 Capsule(s) TAKE ONE CAPSULE BY MOUTH TWICE A DAY 07/18/2017 10/15/2017 Inactive hydrocodone 10 mg-acetaminophen 325 mg tablet RxNorm: 589500 1-2 Tablet(s) QID as needed for pain MUST LAST 30 DAYS 06/19/2017 07/18/2017 Inactive (Response to an electronic controlled substance refill request - RxReferenceNumber: [id number]) hydrocodone 10 mg-acetaminophen 325 mg tablet RxNorm: 247068 1-2 Tablet(s) QID as needed for pain MUST LAST 30 DAYS 06/19/2017 06/18/2017 Inactive (Response to an electronic controlled substance refill request - RxReferenceNumber: [id number]) baclofen 20 mg tablet RxNorm: 710770 1 Tablet(s) PO TID as needed for muscle spasm 06/18/2017 08/20/2017 Inactive Medrol (Dustin) 4 mg tablets in a dose pack RxNorm: 791671 Tablet(s) PO As Directed 06/05/2017 07/18/2017 Inactive omeprazole 40 mg capsule,delayed release RxNorm: 653418 1 Capsu le(s) PO QD 04/20/2017 10/16/2017 Inactive Premarin 1.25 mg tablet RxNorm: 454716 1-2 Tablet(s) PO QD 04/11/20 17 05/15/2018 Inactive duloxetine 60 mg capsule,delayed release RxNorm: 728904 1 Capsu le(s) PO QD 04/11/2017 09/19/2017 Inactive furosemide 40 mg tablet RxNorm: 079207 1 Tablet(s) PO Q AM prn edema--take with potassium 04/11/2017 12/11/2017 Inactive Klor-Con 8 mEq tablet,extended release RxNorm: 055464 1 Tablet( s) PO BID 04/11/2017 01/14/2018 Inactive Lipitor 10 mg tablet RxNorm: 688522 1 Tablet(s) PO QHS 04/11/201702/2018 Inactive amlodipine 5 mg-benazepril 20 mg capsule RxNorm: 638789 1 Capsu le(s) PO QD 04/11/2017 01/29/2018 Inactive allopurinol 300 mg tablet RxNorm: 353754 1 Tablet(s) PO QD 04/11/20 17 01/14/2018 Inactive clonidine HCl 0.1 mg tablet RxNorm: 657440 1 Tablet(s) PO QID 04/0508/19/2017 Inactive baclofen 20 mg tablet RxNorm: 152882 1 Tablet(s) PO TID as needed for muscle spasm 04/02/2017 06/18/2017 Inactive Premarin 1.25 mg tablet RxNorm: 900734 1-2 Tablet(s) PO QD 03/20/20 17 04/10/2017 Inactive hydrocodone 10 mg-acetaminophen 325 mg tablet RxNorm: 492446 1-2 Tablet(s) QID as needed for pain MUST LAST 30 DAYS 03/14/2017 01/21/2019 Inactive (Response to an electronic controlled substance refill request - RxReferenceNumber: [id number]) metoprolol tartrate 100 mg tablet RxNorm: 779444 1 Tablet(s) PO BID 02/12/2017 08/20/2017 Inactive hydrocodone 10 mg-acetaminophen 325 mg tablet RxNorm: 598423 1-2 Tablet(s) QID as needed for pain MUST LAST 30 DAYS 02/08/2017 03/09/2017 Inactive (Response to an electronic controlled substance refill request - RxReferenceNumber: [id number]) metoprolol tartrate 100 mg tablet RxNorm: 954704 TAKE O NE TABLET BY MOUTH TWICE A DAY 01/11/2017 02/12/2017 Inactive metoprolol tartrate 100 mg tablet RxNorm: 158653 1 Tablet(s) PO BID 12/18/2016 12/17/2016 Inactive metoprolol tartrate 100 mg tablet RxNorm: 070288 1 Tablet(s) PO BID 12/18/2016 01/10/2017 Inactive furosemide 40 mg tablet RxNorm: 852759 1 Tablet(s) PO Q AM prn edema--take with potassium 12/13/2016 02/10/2017 Inactive amitriptyline 100 mg tablet RxNorm: 825897 1 Tablet(s) PO QHS 11/2812/12/2016 Inactive baclofen 20 mg tablet RxNorm: 957536 1 Tablet(s) PO TID as needed for muscle spasm 11/14/2016 04/01/2017 Inactive triamterene 75 mg-hydrochlorothiazide 50 mg tablet RxNorm: 3 83313 1 Tablet(s) PO QD 11/14/2016 11/13/2016 Inactive metolazone 2.5 mg tablet RxNorm: 873977 TAKE ONE TABLET BY MOUTH DAILY NEEDED FOR EDEMA 11/14/2016 12/12/2016 Inactive triamterene 75 mg-hydrochlorothiazide 50 mg tablet RxNorm: 3 50659 1 Tablet(s) PO QD 11/14/2016 07/18/2017 Inactive amitriptyline 50 mg tablet RxNorm: 181299 TAKE ONE TABL ET BY MOUTH AT BEDTIME NEEDED FOR SLEEP 11/14/2016 11/27/2016 Inactive Cymbalta 60 mg capsule,delayed release RxNorm: 455979 1 Capsule (s) PO QHS 11/14/2016 12/12/2016 Inactive clonidine HCl 0.1 mg tablet RxNorm: 974266 1 Tablet(s) PO QID 11/1304/04/2017 Inactive amitriptyline 50 mg tablet RxNorm: 184886 1 Tablet(s) P O QHS as needed for sleep 11/01/2016 11/27/2016 Inactive duloxetine 60 mg capsule,delayed release RxNorm: 762670 TAKE ONE CAPSULE BY MOUTH DAILY 10/20/2016 01/17/2017 Inactive allopurinol 300 mg tablet RxNorm: 663974 TAKE ONE TABLET BY LOPEZ TH DAILY 10/20/2016 01/16/2017 Inactive Lyrica 75 mg capsule RxNorm: 176818 TAKE ONE CAPSULE BY MOUTH EVERY NIGHT AT BEDTIME 10/20/2016 12/10/2016 Inactive Klor-Con 8 mEq tablet,extended release RxNorm: 413579 T FARRUKH ONE TABLET BY MOUTH TWICE A DAY 10/20/2016 01/17/2017 Inactive Celebrex 200 mg capsule RxNorm: 128717 TAKE ONE CAPSULE BY MOUT H TWICE A DAY 10/20/2016 07/18/2017 Inactive Bystolic 10 mg tablet RxNorm: 461687 TAKE ONE TABLET BY MOUTH EVERY NIGHT AT BEDTIME 10/20/2016 12/17/2016 Inactive amlodipine 5 mg-benazepril 20 mg capsule RxNorm: 526508 TAKE ONE CAPSULE BY MOUTH EVERY NIGHT AT BEDTIME -- TO REPLACE AMLODOPINE 10/20/20162016 Inactive Lipitor 10 mg tablet RxNorm: 000214 TAKE ONE TABLET BY MOUTH EVERY NIGHT AT BEDTIME 10/20/2016 01/17/2017 Inactive alprazolam 0.5 mg tablet RxNorm: 920148 3 Tablet(s) PO QHS as needed for sleep/anxiety 09/20/2016 10/31/2016 Inactive Tamiflu 75 mg capsule RxNorm: 924206 1 Capsule(s) PO QD 09/19/2016 Inactive Lyrica 75 mg capsule RxNorm: 559674 1 Capsule(s) PO QHS 09/19/2016 Inactive prednisone 20 mg tablet RxNorm: 549809 1 Tablet(s) PO QD 08/10/2016 1 10/17/2015 Inactive doxycycline hyclate 100 mg capsule RxNorm: 7881528 1 Capsule(s) PO BID 08/10/2016 08/19/2016 Inactive Medrol (Dustin) 4 mg tablets in a dose pack RxNorm: 102195 Tablet(s) PO As Directed 07/31/2016 08/22/2016 Inactive Singulair 10 mg tablet RxNorm: 228433 TAKE ONE TABLET BY MOUTH JOSÉ Y 07/27/2016 07/18/2017 Inactive hydrocodone 10 mg-acetaminophen 325 mg tablet RxNorm: 778754 1-2 Tablet(s) QID as needed for pain MUST LAST 30 DAYS 07/26/2016 08/24/2016 Inactive (Response to an electronic controlled substance refill request - RxReferenceNumber: [id number]) alprazolam 0.5 mg tablet RxNorm: 911907 3 Tablet(s) PO QHS as needed for anxiety or sleep 07/26/2016 09/20/2016 Inactive clindamycin 300 mg capsule RxNorm: 755669 1 Capsule(s) PO TID 07/2007/29/2016 Inactive Diflucan 100 mg tablet RxNorm: 401248 1 Tablet(s) PO QD 07/20/2016 Inactive Levaquin 500 mg tablet RxNorm: 709551 1 Tablet(s) PO QD 07/17/2016 Inactive Levaquin 500 mg tablet RxNorm: 732479 1 Tablet(s) PO QD 07/10/2016 Inactive Levaquin 500 mg tablet RxNorm: 728006 1 Tablet(s) PO QD 07/10/2016 Inactive mupirocin 2 % topical ointment RxNorm: 226771 TOP Apply topically to affected areas twice daily 07/06/2016 09/18/2016 Inactive Singulair 10 mg tablet RxNorm: 897975 TAKE ONE TABLET BY MOUTH JOSÉ Y 06/21/2016 01/21/2019 Inactive alprazolam 0.5 mg tablet RxNorm: 254557 TAKE THREE TABL ETS BY MOUTH AT BEDTIME NEEDED FOR SLEEP OR STRESS 05/22/2016 06/20/2016 Inactive triamterene 75 mg-hydrochlorothiazide 50 mg tablet RxNorm: 3 71602 1 Tablet(s) PO QD 04/26/2016 10/21/2016 Inactive Premarin 1.25 mg tablet RxNorm: 215371 1-2 Tablet(s) PO QD 04/26/20 16 03/20/2017 Inactive Klor-Con 8 mEq tablet,extended release RxNorm: 631397 1 Tablet( s) PO BID 04/26/2016 10/19/2016 Inactive Celebrex 200 mg capsule RxNorm: 989330 1 Capsule(s) PO BID TAKE ONE CAPSULE BY MOUTH EVERY DAY 04/26/2016 10/19/2016 Inactive Lipitor 10 mg tablet RxNorm: 874717 1 Tablet(s) PO QHS 04/26/201605/2017 Inactive allopurinol 300 mg tablet RxNorm: 321275 1 Tablet(s) PO QD TAKE ONE TABLET BY MOUTH EVERY DAY 04/26/2016 10/19/2016 Inactive amlodipine 5 mg-benazepril 20 mg capsule RxNorm: 363236 1 Capsule(s) PO QHS replaces amlodopine 04/26/2016 10/19/2016 Inactive duloxetine 60 mg capsule,delayed release RxNorm: 630361 1 Capsu le(s) PO QD 04/26/2016 10/19/2016 Inactive Bystolic 10 mg tablet RxNorm: 342146 1 Tablet(s) PO QHS 04/26/2016 Inactive Singulair 10 mg tablet RxNorm: 132152 1 Tablet(s) PO QD TAKE ONE TABLET BY MOUTH DAILY 04/26/2016 06/20/2016 Inactive clonidine HCl 0.1 mg tablet RxNorm: 089115 1 Tablet(s) PO QID 04/2610/22/2016 Inactive hydrocodone 10 mg-acetaminophen 325 mg tablet RxNorm: 509385 1-2 Tablet(s) QID as needed for pain TAKE ONE TO TWO TABLETS BY MOUTH FOUR TIMES A DAY . MUST LAST 30 DAYS 03/31/2016 04/29/2016 Inactive (Response to an electronic controlled substance refill request - RxReferenceNumber: [id number]) Klor-Con 8 mEq tablet,extended release RxNorm: 702533 T FARRUKH ONE TABLET BY MOUTH TWICE A DAY 03/24/2016 04/22/2016 Inactive prednisone 20 mg tablet RxNorm: 932894 1 Tablet(s) PO QD 03/09/2016 0 03/08/2016 Inactive prednisone 20 mg tablet RxNorm: 668498 1 Tablet(s) PO QD 03/09/2016 0 03/13/2016 Inactive alprazolam 0.5 mg tablet RxNorm: 241080 3 Tablet(s) PO QHS as needed for sleep/stress 03/02/2016 01/21/2019 Inactive mupirocin 2 % topical ointment RxNorm: 066865 TOP twice daily to affected areas of face and neck 02/21/2016 04/25/2016 Inactive clonidine HCl 0.1 mg tablet RxNorm: 876809 TAKE ONE TAB LET BY MOUTH FOUR TIMES A DAY 02/15/2016 03/15/2016 Inactive clonidine HCl 0.1 mg tablet RxNorm: 583749 1 Tablet(s) PO QID 02/1404/25/2016 Inactive Premarin 1.25 mg tablet RxNorm: 925190 1-2 Tablet(s) PO QD 02/15/20 16 03/15/2016 Inactive Klor-Con 8 mEq tablet,extended release RxNorm: 289293 T FARRUKH ONE TABLET BY MOUTH TWICE A DAY 02/15/2016 03/15/2016 Inactive potassium chloride ER 20 mEq tablet,extended release(part/cr yst) RxNorm: 437049 2 Tablet(s) PO BID 02/15/2016 03/15/2016 Inactive Macrobid 100 mg capsule RxNorm: 926714 1 Capsule(s) PO BID 01/24/20 16 01/30/2016 Inactive prednisone 20 mg tablet RxNorm: 301188 Take 3tabs PO QD x 2 days, then 2 tabs PO QD x 2 days, then 1 tab PO QD x 2 days, then 1/2 tab PO QDy x 2 days 12/23/2015 04/25/2016 Inactive Klor-Con 8 mEq tablet,extended release RxNorm: 508584 T FARRUKH ONE TABLET BY MOUTH TWICE A DAY 12/20/2015 02/14/2016 Inactive alprazolam 1 mg tablet RxNorm: 312331 1 1/2 Tablet(s) PO QHS 201501/23/2016 Inactive nystatin 100,000 unit/gram topical cream RxNorm: 495275 APPLY TO AFFECTED AREA(S) TWO TIMES A DAY 11/30/2015 12/14/2015 Inactive Singulair 10 mg tablet RxNorm: 843372 TAKE ONE TABLET BY MOUTH JOSÉ Y 11/18/2015 04/25/2016 Inactive allopurinol 300 mg tablet RxNorm: 868783 1 Tablet(s) PO QD TAKE ONE TABLET BY MOUTH EVERY DAY 10/26/2015 04/22/2016 Inactive Singulair 10 mg tablet RxNorm: 119271 TAKE ONE TABLET BY MOUTH JOSÉ Y 10/26/2015 11/17/2015 Inactive duloxetine 60 mg capsule,delayed release RxNorm: 544294 1 Capsu le(s) PO QD 10/26/2015 04/22/2016 Inactive triamterene 75 mg-hydrochlorothiazide 50 mg tablet RxNorm: 3 09362 1 Tablet(s) PO QD 10/26/2015 11/14/2016 Inactive potassium chloride ER 20 mEq tablet,extended release(part/cr yst) RxNorm: 681018 2 Tablet(s) PO BID 10/26/2015 02/14/2016 Inactive Lipitor 10 mg tablet RxNorm: 917355 1 Tablet(s) PO QHS 10/26/2015 Inactive amlodipine 5 mg-benazepril 20 mg capsule RxNorm: 276616 1 Capsule(s) PO QHS replaces amlodopine 10/26/2015 04/22/2016 Inactive Bystolic 10 mg tablet RxNorm: 738334 1 Tablet(s) PO QHS 10/26/2015 Inactive amlodipine 5 mg-benazepril 20 mg capsule RxNorm: 100260 1 Capsule(s) PO QHS replaces amlodopine 10/06/2015 10/25/2015 Inactive amlodipine 5 mg tablet RxNorm: 995419 1 Tablet(s) PO QHS 09/30/2015 0 04/25/2016 Inactive metolazone 2.5 mg tablet RxNorm: 116336 TAKE ONE TABLET BY MOUTH DAILY NEEDED FOR EDEMA 09/30/2015 01/21/2019 Inactive duloxetine 60 mg capsule,delayed release RxNorm: 945466 1 Capsu le(s) PO QD 09/30/2015 10/25/2015 Inactive cephalexin 500 mg capsule RxNorm: 983932 1 Capsule(s) PO BID 201509/23/2015 Inactive mupirocin 2 % topical ointment RxNorm: 376033 TOP twice daily to affected areas of face and neck 09/14/2015 02/20/2016 Inactive baclofen 20 mg tablet RxNorm: 988554 1 Tablet(s) PO TID as needed for muscle spasm 09/01/2015 11/14/2016 Inactive clonidine HCl 0.1 mg tablet RxNorm: 191867 1 Tablet(s) PO QID 09/0102/14/2016 Inactive alprazolam 1 mg tablet RxNorm: 666601 1 1/2 Tablet(s) PO QHS 201409/09/2015 Inactive baclofen 20 mg tablet RxNorm: 716937 1 Tablet(s) PO TID as needed for muscle spasm 07/23/2015 09/01/2015 Inactive omeprazole 40 mg capsule,delayed release RxNorm: 092414 1 Capsu le(s) PO QD 07/23/2015 04/25/2016 Inactive alprazolam 1 mg tablet RxNorm: 789666 1 1/2 Tablet(s) PO QHS 201408/10/2015 Inactive Bystolic 10 mg tablet RxNorm: 033126 1 Tablet(s) PO BID 06/24/2015 Inactive allopurinol 300 mg tablet RxNorm: 154237 1 Tablet(s) PO QD TAKE ONE TABLET BY MOUTH EVERY DAY 06/23/2015 10/20/2015 Inactive alprazolam 1 mg tablet RxNorm: 687414 1 1/2 Tablet(s) PO QHS 201407/06/2015 Inactive clonidine HCl 0.1 mg tablet RxNorm: 646514 1 Tablet(s) PO QID 06/0209/01/2015 Inactive clonidine HCl 0.1 mg tablet RxNorm: 794648 1 Tablet(s) PO QID 06/0206/01/2015 Inactive Cymbalta 60 mg capsule,delayed release RxNorm: 127574 1 Capsule (s) PO QHS 06/02/2015 08/30/2015 Inactive Cymbalta 60 mg capsule,delayed release RxNorm: 092399 1 Capsule (s) PO QHS 06/02/2015 06/01/2015 Inactive clonidine HCl 0.1 mg tablet RxNorm: 646653 1 Tablet(s) PO TID 05/3106/01/2015 Inactive replaces 0.2mg dose metolazone 2.5 mg tablet RxNorm: 438305 TAKE ONE TABLET BY MOUTH DAILY NEEDED FOR EDEMA 05/21/2015 06/19/2015 Inactive Singulair 10 mg tablet RxNorm: 109356 TAKE ONE TABLET BY MOUTH JOSÉ Y 05/21/2015 10/17/2015 Inactive Cymbalta 30 mg capsule,delayed release RxNorm: 615074 1 Capsule (s) PO QHS 05/20/2015 11/14/2016 Inactive betamethasone valerate 0.1 % topical cream RxNorm: 730101 Appli cation TOP BID 05/10/2015 04/25/2016 Inactive Bactroban 2 % topical ointment RxNorm: 889299 Application TOP BID 0 05/10/2015 06/20/2015 Inactive baclofen 20 mg tablet RxNorm: 081756 1 Tablet(s) PO TID as needed 0 04/26/2015 07/23/2015 Inactive Lipitor 10 mg tablet RxNorm: 358059 1 Tablet(s) PO QHS 04/26/201508/2016 Inactive clonidine HCl 0.1 mg tablet RxNorm: 222741 1 Tablet(s) PO TID 04/2605/30/2015 Inactive replaces 0.2mg dose Klor-Con 8 mEq tablet,extended release RxNorm: 208305 1 Tablet( s) PO BID 04/26/2015 04/25/2016 Inactive metolazone 2.5 mg tablet RxNorm: 559198 1 Tablet(s) PO QD as ne eded for edema 04/26/2015 04/25/2015 Inactive triamterene 75 mg-hydrochlorothiazide 50 mg tablet RxNorm: 3 06609 1 Tablet(s) PO QD 04/26/2015 10/22/2015 Inactive Premarin 1.25 mg tablet RxNorm: 525228 1-2 Tablet(s) PO QD 04/26/20 15 10/22/2015 Inactive Bystolic 10 mg tablet RxNorm: 337837 1 Tablet(s) PO QAM TAKE ONE TABLET BY MOUTH EVERY MORNING 04/23/2015 06/23/2015 Inactive clonidine HCl 0.1 mg tablet RxNorm: 936627 1 Tablet(s) PO TID 03/2304/25/2015 Inactive replaces 0.2mg dose nystatin 100,000 unit/gram topical cream RxNorm: 520489 Applica tion TOP BID 03/23/2015 06/20/2015 Inactive baclofen 20 mg tablet RxNorm: 286728 1 Tablet(s) PO TID as needed 0 03/23/2015 04/25/2015 Inactive Premarin 1.25 mg tablet RxNorm: 970948 1-2 Tablet(s) PO QD 03/23/20 15 04/25/2015 Inactive Klor-Con 8 mEq tablet,extended release RxNorm: 779906 1 Tablet( s) PO BID 03/23/2015 04/25/2015 Inactive cefdinir 300 mg capsule RxNorm: 071324 2 Capsule(s) PO QD 03/16/2015 03/25/2015 Inactive baclofen 20 mg tablet RxNorm: 438029 1 Tablet(s) PO TID as needed 0 03/02/2015 03/22/2015 Inactive allopurinol 300 mg tablet RxNorm: 572386 1 Tablet(s) PO QD TAKE ONE TABLET BY MOUTH EVERY DAY 02/22/2015 05/22/2015 Inactive Klor-Con M20 mEq tablet,extended release RxNorm: 032224 2 Tablet(s) PO BID to use with lasix 02/22/2015 06/20/2015 Inactive clonidine HCl 0.1 mg tablet RxNorm: 129998 1 Tablet(s) PO TID 02/1903/22/2015 Inactive replaces 0.2mg dose Lipitor 10 mg tablet RxNorm: 167900 1 Tablet(s) PO QHS 01/20/201506/2015 Inactive Lipitor 10 mg tablet RxNorm: 406463 1 Tablet(s) PO QHS 01/20/2015 Inactive Singulair 10 mg tablet RxNorm: 160158 1 Tablet(s) PO QD TAKE ONE TABLET BY MOUTH EVERY DAY 11/20/2014 05/18/2015 Inactive Lipitor 10 mg tablet RxNorm: 024081 1 Tablet(s) PO QHS 11/20/201408/2015 Inactive allopurinol 300 mg tablet RxNorm: 382135 1 Tablet(s) PO QD TAKE ONE TABLET BY MOUTH EVERY DAY 11/20/2014 02/16/2015 Inactive Bystolic 10 mg tablet RxNorm: 265957 1 Tablet(s) PO QAM TAKE ONE TABLET BY MOUTH EVERY MORNING 11/20/2014 04/22/2015 Inactive Klor-Con 8 mEq tablet,extended release RxNorm: 800320 1 Tablet( s) PO BID 11/20/2014 02/17/2015 Inactive baclofen 20 mg tablet RxNorm: 620183 1 Tablet(s) PO TID as needed 0 11/20/2014 01/21/2019 Inactive baclofen 20 mg tablet RxNorm: 428702 1 Tablet(s) PO TID as needed 0 10/27/2014 11/19/2014 Inactive baclofen 20 mg tablet RxNorm: 055559 1 Tablet(s) PO TID as needed 0 10/26/2014 03/01/2015 Inactive allopurinol 300 mg tablet RxNorm: 245698 1 Tablet(s) PO QD TAKE ONE TABLET BY MOUTH EVERY DAY 10/26/2014 11/20/2014 Inactive Bystolic 10 mg tablet RxNorm: 755251 1 Tablet(s) PO QAM TAKE ONE TABLET BY MOUTH EVERY MORNING 10/26/2014 11/20/2014 Inactive clonidine HCl 0.1 mg tablet RxNorm: 041940 1 Tablet(s) PO TID 09/2805/27/2019 Inactive replaces 0.2mg dose clonidine HCl 0.1 mg tablet RxNorm: 345331 1 Tablet(s) PO TID 09/2802/18/2015 Inactive replaces 0.2mg dose baclofen 20 mg tablet RxNorm: 581571 1 Tablet(s) PO TID as needed 1 11/01/2013 08/30/2014 Inactive Lipitor 10 mg tablet RxNorm: 825273 1 Tablet(s) PO QHS 08/31/2014 Inactive baclofen 20 mg tablet RxNorm: 059055 1 Tablet(s) PO TID as needed 1 11/01/2013 10/26/2014 Inactive triamterene 75 mg-hydrochlorothiazide 50 mg tablet RxNorm: 3 87828 1 Tablet(s) PO QD 08/31/2014 02/26/2015 Inactive Klor-Con 8 mEq tablet,extended release RxNorm: 227579 1 Tablet( s) PO BID 08/31/2014 11/20/2014 Inactive baclofen 20 mg tablet RxNorm: 126105 1 Tablet(s) PO TID as needed 1 09/30/2013 10/25/2014 Inactive baclofen 20 mg tablet RxNorm: 467408 1 Tablet(s) PO TID as needed 1 09/30/2013 08/31/2014 Inactive omeprazole 40 mg capsule,delayed release RxNorm: 466357 1 Capsu le(s) PO QD 07/21/2014 07/23/2015 Inactive Flonase 50 mcg/actuation nasal spray,suspension RxNorm: 8963 23 1 Viola NASAL BID 07/15/2014 04/09/2017 Inactive hydrocodone 10 mg-acetaminophen 325 mg tablet RxNorm: 318090 1-2 Tablet(s) QID as needed for pain TAKE ONE TO TWO TABLETS BY MOUTH FOUR TIMES A DAY . MUST LAST 30 DAYS 06/30/2014 07/27/2014 Inactive (Response to an electronic controlled substance refill request - RxReferenceNumber: [id number]) baclofen 20 mg tablet RxNorm: 537402 1 Tablet(s) PO TID as needed 1 07/31/2014 Inactive Singulair 10 mg tablet RxNorm: 169070 1 Tablet(s) PO QD TAKE ONE TABLET BY MOUTH EVERY DAY 05/25/2014 11/20/2014 Inactive Bystolic 10 mg tablet RxNorm: 237991 TAKE ONE TABLET BY MOUTH E VERY MORNING 05/25/2014 09/21/2014 Inactive allopurinol 300 mg tablet RxNorm: 717493 1 Tablet(s) PO QD TAKE ONE TABLET BY MOUTH EVERY DAY 05/25/2014 10/21/2014 Inactive baclofen 20 mg tablet RxNorm: 874729 1 Tablet(s) PO TID as needed 0 05/25/2014 06/29/2014 Inactive allopurinol 300 mg tablet RxNorm: 482300 TAKE ONE TABLET BY LOPEZ TH EVERY DAY 05/25/2014 09/21/2014 Inactive Singulair 10 mg tablet RxNorm: 531828 1 Tablet(s) PO QD TAKE ONE TABLET BY MOUTH EVERY DAY 05/25/2014 05/24/2014 Inactive Bystolic 10 mg tablet RxNorm: 972732 1 Tablet(s) PO QAM TAKE ONE TABLET BY MOUTH EVERY MORNING 05/25/2014 10/21/2014 Inactive metolazone 2.5 mg tablet RxNorm: 789217 1 Tablet(s) PO QD as ne eded for edema 05/18/2014 04/25/2015 Inactive Lasix 40 mg tablet RxNorm: 489085 1 Tablet(s) PO QAM s hould take potassium supplementation with this medication 05/14/2014 05/17/2014 Inactive hydrocodone 10 mg-acetaminophen 325 mg tablet RxNorm: 506121 1-2 Tablet(s) QID as needed for pain TAKE ONE TO TWO TABLETS BY MOUTH FOUR TIMES A DAY . MUST LAST 30 DAYS 05/07/2014 06/05/2014 Inactive (Response to an electronic controlled substance refill request - RxReferenceNumber: [id number]) alprazolam 0.5 mg tablet RxNorm: 928286 TAKE ONE TABLET BY MOUTH TWICE A DAY , MUST LAST 30 DAYS 05/07/2014 05/22/2016 Inactive (Response to a n electronic controlled substance refill request - RxReferenceNumber: [id number]) diclofenac sodium 75 mg tablet,delayed release RxNorm: 77993 6 1 Tablet(s) PO BID for pain 04/24/2014 07/20/2014 Inactive Celebrex 200 mg capsule RxNorm: 491822 TAKE ONE CAPSULE BY MOUT H EVERY DAY 04/24/2014 07/20/2014 Inactive alprazolam 0.5 mg tablet RxNorm: 322175 TAKE ONE TABLET BY MOUTH TWICE A DAY , MUST LAST 30 DAYS 03/24/2014 04/22/2014 Inactive (Response to a n electronic controlled substance refill request - RxReferenceNumber: [id number]) diclofenac sodium 75 mg tablet,delayed release RxNorm: 49594 6 1 Tablet(s) PO BID for pain 03/24/2014 04/24/2014 Inactive clonidine HCl 0.1 mg tablet RxNorm: 507794 1 Tablet(s) PO TID 03/2409/28/2014 Inactive replaces 0.2mg dose Klor-Con 8 mEq tablet,extended release RxNorm: 058554 1 Tablet( s) PO BID 02/26/2014 08/31/2014 Inactive diclofenac sodium 75 mg tablet,delayed release RxNorm: 69385 6 1 Tablet(s) PO BID for pain 02/25/2014 03/24/2014 Inactive hydrocodone 10 mg-acetaminophen 325 mg tablet RxNorm: 065365 1-2 Tablet(s) QID as needed for pain TAKE ONE TO TWO TABLETS BY MOUTH FOUR TIMES A DAY . MUST LAST 30 DAYS 02/25/2014 03/26/2014 Inactive (Response to an electronic controlled substance refill request - RxReferenceNumber: [id number]) alprazolam 0.5 mg tablet RxNorm: 221576 Tablet(s) PO BI D as needed for anxiety TAKE ONE TABLET BY MOUTH TWICE A DAY , MUST LAST 30 DAYS 02/25/2014 Inactive (Response to an electronic controlled [place] bstance refill request - RxReferenceNumber: [id number]) [AttnRPh: Saving apply/adjudicate RxGRP:SG20 RxBIN:[id number] RxPCN: ID#:[id number]] alprazolam 0.5 mg tablet RxNorm: 865070 Tablet(s) TAKE ONE TABLET BY MOUTH TWICE A DAY , MUST LAST 30 DAYS 01/27/2014 02/24/2014 Inactive (Respo nse to an electronic controlled substance refill request - RxReferenceNumber: [id number]) [AttnRPh: Saving apply/adjudicate RxGRP:SG20 RxBIN:[id number] RxPCN: ID#:[id number]] hydrocodone 10 mg-acetaminophen 325 mg tablet RxNorm: 206957 1-2 Tablet(s) QID as needed for pain TAKE ONE TO TWO TABLETS BY MOUTH FOUR TIMES A DAY . MUST LAST 30 DAYS 01/27/2014 02/24/2014 Inactive (Response to an electronic controlled substance refill request - RxReferenceNumber: [id number]) alprazolam 0.5 mg tablet RxNorm: 801731 TAKE ONE TABLET BY MOUTH TWICE A DAY , MUST LAST 30 DAYS 01/27/2014 01/26/2014 Inactive (Response to a n electronic controlled substance refill request - RxReferenceNumber: [id number]) Premarin 1.25 mg tablet RxNorm: 862913 1-2 Tablet(s) PO QD 01/28/20 14 07/25/2014 Inactive alprazolam 0.5 mg tablet RxNorm: 829720 TAKE ONE TABLET BY MOUTH TWICE A DAY , MUST LAST 30 DAYS 01/27/2014 01/27/2014 Inactive (Response to a n electronic controlled substance refill request - RxReferenceNumber: [id number]) hydrocodone 10 mg-acetaminophen 325 mg tablet RxNorm: 254542 TAKE ONE TO TWO TABLETS BY MOUTH FOUR TIMES A DAY . MUST LAST 30 DAYS 01/27/20142013 Inactive (Response to an electronic controlled [place] bstance refill request - RxReferenceNumber: [id number]) Celebrex 200 mg capsule RxNorm: 394028 1 Capsule(s) PO QD TAKE ONE CAPSULE BY MOUTH EVERY DAY 12/29/2013 04/27/2014 Inactive hydrocodone 10 mg-acetaminophen 325 mg tablet RxNorm: 583689 1-2 Tablet(s) PO QID as needed for severe pain 12/29/2013 01/27/2014 Inactive allopurinol 300 mg tablet RxNorm: 107436 1 Tablet(s) PO QD TAKE ONE TABLET BY MOUTH EVERY DAY 12/29/2013 05/24/2014 Inactive alprazolam 0.5 mg tablet RxNorm: 155419 TAKE ONE TABLET BY MOUTH TWICE A DAY , MUST LAST 30 DAYS 12/29/2013 01/27/2014 Inactive (Response to a n electronic controlled substance refill request - RxReferenceNumber: [id number]) Celebrex 200 mg capsule RxNorm: 409432 1 Capsule(s) PO QD TAKE ONE CAPSULE BY MOUTH EVERY DAY 12/29/2013 12/29/2013 Inactive Bystolic 10 mg tablet RxNorm: 022521 1 Tablet(s) PO QAM TAKE ONE TABLET BY MOUTH EVERY MORNING 12/29/2013 05/24/2014 Inactive Bystolic 10 mg tablet RxNorm: 242853 1 Tablet(s) PO QAM TAKE ONE TABLET BY MOUTH EVERY MORNING 12/29/2013 12/29/2013 Inactive Singulair 10 mg tablet RxNorm: 031576 1 Tablet(s) PO QD TAKE ONE TABLET BY MOUTH EVERY DAY 12/29/2013 05/25/2014 Inactive hydrocodone 10 mg-acetaminophen 325 mg tablet RxNorm: 505945 TAKE ONE TO TWO TABLETS BY MOUTH FOUR TIMES A DAY . MUST LAST 30 DAYS 12/29/20132013 Inactive (Response to an electronic controlled [place] bstance refill request - RxReferenceNumber: [id number]) Trazadone 75mg Tablet RxNorm: 1 Tablet(s) PO QHS as needed 03/23/2014 Inactive Trazadone 75mg Tablet RxNorm: 1 Tablet(s) PO QHS 12/24/20132014 Inactive Soma 350 mg tablet RxNorm: 625443 Tablet(s) PO TAKE ON E TABLET BY MOUTH THREE TIMES A DAY NEEDED FOR MUSCLE SPASMS. THIS MUST LAST 30 DAYS BETWEEN REFILLS. 12/10/2013 12/22/2013 Inactive (Appended: Cont rolled substance eRx refill - RxReferenceNumber: [id number]) diclofenac sodium 75 mg tablet,delayed release RxNorm: 66580 6 1 Tablet(s) PO BID for pain 12/10/2013 02/24/2014 Inactive allopurinol 300 mg tablet RxNorm: 938283 1 Tablet(s) PO QD 11/20/19 14 12/29/2013 Inactive alprazolam 0.5 mg tablet RxNorm: 748930 2 Tablet(s) PO BID 11/13/19 14 12/29/2013 Inactive prn clonidine 0.1 mg tablet RxNorm: 112777 1 Tablet(s) PO TID 11/12/2013 02/09/2014 Inactive replaces 0.2mg dose Klor-Con M20 mEq tablet,extended release RxNorm: 058808 2 Tablet(s) PO BID to use with lasix 11/12/2013 05/10/2014 Inactive Singulair 10 mg tablet RxNorm: 809676 1 Tablet(s) PO QD 11/12/2013 Inactive hydrocodone 10 mg-acetaminophen 325 mg tablet RxNorm: 776306 1-2 Tablet(s) PO QID as needed for severe pain 11/12/2013 12/28/2013 Inactive Bystolic 10 mg tablet RxNorm: 837916 1 Tablet(s) PO QAM 11/12/2013 Inactive Soma 350 mg tablet RxNorm: 627659 Tablet(s) PO TAKE ON E TABLET BY MOUTH THREE TIMES A DAY NEEDED FOR MUSCLE SPASMS. THIS MUST LAST 30 DAYS BETWEEN REFILLS. 10/13/2013 12/10/2013 Inactive (Appended: Cont rolled substance eRx refill - RxReferenceNumber: [id number]) hydrocodone 10 mg-acetaminophen 325 mg tablet RxNorm: 495315 1-2 Tablet(s) PO QID as needed for severe pain 10/03/2013 11/11/2013 Inactive diclofenac sodium 75 mg tablet,delayed release RxNorm: 80899 8 1 Tablet(s) PO BID for pain 09/11/2013 12/10/2013 Inactive alprazolam 0.5 mg tablet RxNorm: 679409 1 Tablet(s) PO BID May refill on 04/26/13 09/01/2013 10/30/2013 Inactive prn hydrocodone 10 mg-acetaminophen 325 mg tablet RxNorm: 036385 1-2 Tablet(s) PO QID as needed for severe pain 09/01/2013 10/02/2013 Inactive triamterene 75 mg-hydrochlorothiazide 50 mg tablet RxNorm: 3 86248 1 Tablet(s) PO QD 08/04/2013 08/31/2014 Inactive cyclobenzaprine 10 mg tablet RxNorm: 414230 1 Tablet(s) PO TID prn spasm 08/04/2013 08/13/2013 Inactive clonidine 0.1 mg tablet RxNorm: 070176 1 Tablet(s) PO TID 08/04/2013 11/11/2013 Inactive replaces 0.2mg dose cyclobenzaprine 10 mg tablet RxNorm: 806919 1 Tablet(s) PO TID prn spasm 07/23/2013 08/01/2013 Inactive hydrocodone 10 mg-acetaminophen 325 mg tablet RxNorm: 342517 2 1-2 Tablet(s) PO QID as needed for severe pain 06/09/2013 08/07/2013 Inactive Singulair 10 mg tablet RxNorm: 870512 1 Tablet(s) PO QD 05/29/2013 Inactive Klor-Con 8 mEq tablet,extended release RxNorm: 070495 1 Tablet( s) PO BID 05/29/2013 02/26/2014 Inactive allopurinol 300 mg tablet RxNorm: 468344 1 Tablet(s) PO QD 05/29/20 13 11/19/2013 Inactive Bystolic 10 mg tablet RxNorm: 484903 1 Tablet(s) PO QAM take one daily in the morning. 05/29/2013 11/11/2013 Inactive scopolamine 1.5 mg 72 hr Transderm Patch RxNorm: 628641 Application TD Q72H for motion sickness 05/26/2013 07/22/2013 Inactive Soma 350 mg tablet RxNorm: 500170 1 Tablet(s) PO TID as needed for spasm 05/19/2013 10/13/2013 Inactive diclofenac sodium 75 mg tablet,delayed release RxNorm: 60894 8 1 Tablet(s) PO BID for pain 05/14/2013 07/22/2013 Inactive allopurinol 300 mg tablet RxNorm: 257844 1 Tablet(s) PO QD 04/25/20 13 05/28/2013 Inactive alprazolam 0.5 mg tablet RxNorm: 011713 1 Tablet(s) PO BID May refill on 04/26/13 04/25/2013 06/23/2013 Inactive prn Celebrex 200 mg capsule RxNorm: 069157 1 Capsule(s) PO QD 04/16/2013 12/29/2013 Inactive alprazolam 0.5 mg tablet RxNorm: 500583 1 Tablet(s) PO BID May refill on 04/26/13 04/16/2013 04/24/2013 Inactive prn Soma 350 mg tablet RxNorm: 319792 1 Tablet(s) PO TID as needed for spasm 04/16/2013 No Stop Date Active Lasix 40 mg tablet RxNorm: 201284 1 Tablet(s) PO QAM s hould take potassium supplementation with this medication 04/16/2013 06/14/2013 Inactive clonidine 0.1 mg tablet RxNorm: 969030 1 Tablet(s) PO TID 04/16/2013 08/03/2013 Inactive replaces 0.2mg dose prednisone 20 mg tablet RxNorm: 352418 1 Tablet(s) PO BID 04/16/2013 04/20/2013 Inactive diclofenac sodium 75 mg tablet,delayed release RxNorm: 73460 8 1 Tablet(s) PO BID for pain 04/14/2013 05/13/2013 Inactive hydrocodone 10 mg-acetaminophen 325 mg tablet RxNorm: 290609 2 1-2 Tablet(s) PO QID as needed for severe pain 04/14/2013 No Stop Date Active Lasix 40 mg tablet RxNorm: 356242 1 Tablet(s) PO QAM s hould take potassium supplementation with this medication 03/31/2013 04/15/2013 Inactive Celebrex 200 mg capsule RxNorm: 068194 1 Capsule(s) PO QD 03/31/2013 04/15/2013 Inactive alprazolam 0.5 mg tablet RxNorm: 663615 1 Tablet(s) PO BID 03/28/20 13 04/15/2013 Inactive prn hydrocodone 10 mg-acetaminophen 325 mg tablet RxNorm: 337098 2 1-2 Tablet(s) PO QID as needed for severe pain 03/10/2013 No Stop Date Active metformin ER 500 mg 24 hr tablet,extended release RxNorm: 86 1018 1 Tablet(s) PO QD 03/06/2013 07/22/2013 Inactive clindamycin 300 mg capsule RxNorm: 524043 2 Capsule(s) PO TID 03/0503/14/2013 Inactive Zaroxolyn 2.5 mg tablet RxNorm: 419326 1 Tablet(s) PO QAM 03/05/2013 05/19/2015 Inactive amlodipine 10 mg tablet RxNorm: 987014 1 Tablet(s) PO QD 03/03/2013 0 05/25/2013 Inactive Norvasc 10 mg tablet RxNorm: 290945 1 Tablet(s) PO QD 02/28/201307/11 Inactive Celebrex 200 mg capsule RxNorm: 073087 1 Capsule(s) PO QD 02/28/2013 03/30/2013 Inactive diclofenac sodium 75 mg tablet,delayed release RxNorm: 48908 8 1 Tablet(s) PO BID for pain 02/14/2013 03/15/2013 Inactive Soma 350 mg tablet RxNorm: 646044 1 Tablet(s) PO TID as needed for spasm 02/14/2013 No Stop Date Active hydrocodone 10 mg-acetaminophen 325 mg tablet RxNorm: 038458 2 1-2 Tablet(s) PO QID as needed for severe pain 02/14/2013 No Stop Date Active Norvasc 10 mg tablet RxNorm: 827806 1 Tablet(s) PO QD 02/10/201302/09 Inactive Celebrex 200 mg capsule RxNorm: 304669 1 Capsule(s) PO QD 01/27/2013 01/26/2013 Inactive Premarin 1.25 mg tablet RxNorm: 276368 1-2 Tablet(s) PO QD 01/28/20 13 06/25/2013 Inactive alprazolam 0.5 mg tablet RxNorm: 754572 1 Tablet(s) PO BID 01/28/20 13 02/25/2013 Inactive prn amlodipine 5 mg tablet RxNorm: 004484 1 Tablet(s) PO QD 01/27/2013 Inactive Celebrex 200 mg capsule RxNorm: 143449 1 Capsule(s) PO QD 01/27/2013 02/27/2013 Inactive gabapentin 600 mg tablet RxNorm: 164698 1 Tablet(s) PO QHS 01/16/20 13 07/22/2013 Inactive Soma 350 mg tablet RxNorm: 036734 1 Tablet(s) PO TID as needed for spasm 01/15/2013 No Stop Date Active hydrocodone 10 mg-acetaminophen 325 mg tablet RxNorm: 430184 2 1-2 Tablet(s) PO QID as needed for severe pain 01/15/2013 No Stop Date Active Soma 350 mg tablet RxNorm: 760046 1 Tablet(s) PO TID as needed for spasm 01/13/2013 No Stop Date Active alprazolam 0.5 mg tablet RxNorm: 934846 1 Tablet(s) PO BID 12/31/19 13 01/26/2013 Inactive prn diclofenac sodium 75 mg tablet,delayed release RxNorm: 47835 8 1 Tablet(s) PO BID for pain 12/09/2012 01/07/2013 Inactive gabapentin 600 mg tablet RxNorm: 498952 1 Tablet(s) PO QHS 12/10/19 13 01/07/2013 Inactive hydrocodone 10 mg-acetaminophen 325 mg tablet RxNorm: 229369 2 1-2 Tablet(s) PO QID as needed for severe pain 12/02/2012 No Stop Date Active Levaquin 750 mg tablet RxNorm: 756353 1 Tablet(s) PO QD 11/21/2012 Inactive Singulair 10 mg tablet RxNorm: 752558 1 Tablet(s) PO QD 11/11/2012 Inactive clonidine 0.2 mg tablet RxNorm: 392452 1 Tablet(s) PO TID 11/11/2012 04/15/2013 Inactive alprazolam 0.5 mg tablet RxNorm: 204879 1 Tablet(s) PO BID 11/12/19 13 12/10/2012 Inactive prn Klor-Con 8 mEq tablet,extended release RxNorm: 155834 1 Tablet( s) PO BID 11/11/2012 03/04/2013 Inactive hydrocodone 10 mg-acetaminophen 325 mg tablet RxNorm: 691096 2 1-2 Tablet(s) PO QID as needed for severe pain 11/06/2012 No Stop Date Active alprazolam 0.5 mg tablet RxNorm: 816193 1 Tablet(s) PO BID 10/15/19 13 11/10/2012 Inactive prn hydrocodone-acetaminophen 10 mg-325 mg tablet RxNorm: 235561 2 1-2 Tablet(s) PO QID as needed for severe pain 10/10/2012 10/09/2012 Inactive allopurinol 300 mg tablet RxNorm: 437426 1 Tablet(s) PO QD 09/20/19 13 12/18/2012 Inactive alprazolam 0.5 mg tablet RxNorm: 856847 1 Tablet(s) PO BID 09/17/19 13 10/14/2012 Inactive prn hydrocodone-acetaminophen 10 mg-325 mg tablet RxNorm: 173899 2 1-2 Tablet(s) PO QID as needed for severe pain 08/22/2012 08/21/2012 Inactive Norvasc 10 mg tablet RxNorm: 862725 1 Tablet(s) PO QD 08/12/201201/10 Inactive Premarin 1.25 mg tablet RxNorm: 713831 1-2 Tablet(s) PO QD 07/30/20 12 12/26/2012 Inactive alprazolam 0.5 mg tablet RxNorm: 314147 1 Tablet(s) PO BID 07/29/20 12 08/27/2012 Inactive prn Klor-Con 8 mEq tablet,extended release RxNorm: 964091 1 Tablet( s) PO BID 07/29/2012 11/10/2012 Inactive hydrocodone-acetaminophen 10 mg-325 mg tablet RxNorm: 926048 2 1-2 Tablet(s) PO QID as needed for severe pain 07/29/2012 No Stop Date Active Premarin 1.25 mg tablet RxNorm: 295963 1-2 Tablet(s) PO QD 07/29/2007/29/2012 Inactive clonidine 0.2 mg tablet RxNorm: 317478 1 Tablet(s) PO TID 07/29/2012 10/28/2012 Inactive ketorolac 10 mg tablet RxNorm: 412344 1 Tablet(s) PO QID prn mitul joseph 07/18/2012 No Stop Date Active hydrocodone-acetaminophen 10 mg-325 mg tablet RxNorm: 497009 2 1-2 Tablet(s) PO QID as needed for severe pain 07/03/2012 No Stop Date Active amlodipine 5 mg tablet RxNorm: 798393 1 Tablet(s) PO QD 07/02/2012 Inactive allopurinol 300 mg tablet RxNorm: 197735 1 Tablet(s) PO QD 07/02/20 12 09/19/2012 Inactive Celebrex 200 mg capsule RxNorm: 563357 1 Capsule(s) PO QD for j oint pain 06/26/2012 10/23/2012 Inactive diclofenac sodium 75 mg tablet,delayed release RxNorm: 30952 8 1 Tablet(s) PO BID for pain 06/19/2012 09/16/2012 Inactive hydrocodone-acetaminophen 10 mg-325 mg tablet RxNorm: 239216 2 1-2 Tablet(s) PO QID as needed for severe pain 06/10/2012 No Stop Date Active alprazolam 0.5 mg tablet RxNorm: 131553 1 Tablet(s) PO BID 06/03/20 12 07/02/2012 Inactive prn ketorolac 10 mg tablet RxNorm: 850825 1 Tablet(s) PO Q8H 05/27/2012 0 01/21/2019 Inactive as needed for headache hydrocodone-acetaminophen 10 mg-325 mg tablet RxNorm: 136487 2 1-2 Tablet(s) PO QID as needed for severe pain 05/15/2012 No Stop Date Active allopurinol 300 mg tablet RxNorm: 455705 1 Tablet(s) PO QD 05/14/20 12 06/12/2012 Inactive allopurinol 300 mg tablet RxNorm: 281052 1 Tablet(s) PO QD 05/14/20 12 05/13/2012 Inactive amlodipine 5 mg tablet RxNorm: 212843 1 Tablet(s) PO QD 05/01/2012 Inactive amlodipine 5 mg Tab RxNorm: 073831 1 Tablet(s) PO QD 05/01/201204/30 Inactive Celebrex 200 mg capsule RxNorm: 713838 1 Capsule(s) PO QD for j oint pain 05/01/2012 06/25/2012 Inactive Singulair 10 mg tablet RxNorm: 880995 1 Tablet(s) PO QD 05/01/2012 Inactive alprazolam 0.5 mg tablet RxNorm: 533592 1 Tablet(s) PO BID 05/01/20 12 05/30/2012 Inactive prn Celebrex 200 mg Cap RxNorm: 332331 1 Capsule(s) PO QD for joint radu n 05/01/2012 04/30/2012 Inactive hydrocodone-acetaminophen 10 mg-325 mg tablet RxNorm: 559076 2 1-2 Tablet(s) PO QID as needed for severe pain 04/19/2012 No Stop Date Active Lasix 40 mg tablet RxNorm: 622372 1 Tablet(s) PO QAM s hould take potassium supplementation with this medication 04/05/2012 06/03/2012 Inactive alprazolam 0.5 mg Tab RxNorm: 846682 1 Tablet(s) PO BID 04/05/2012 Inactive prn hydrocodone-acetaminophen 10 mg-325 mg Tab RxNorm: 4056488 1-2 Tablet(s) PO QID as needed for severe pain 03/25/2012 03/24/2012 Inactive clonidine 0.2 mg Tab RxNorm: 416537 1 Tablet(s) PO TID 03/08/2012 Inactive alprazolam 0.5 mg Tab RxNorm: 131787 1 Tablet(s) PO BID 03/08/2012 Inactive prn Soma 350 mg tablet RxNorm: 308735 1 Tablet(s) PO TID for spasm 02/0903/18/2012 Inactive clonidine 0.2 mg tablet RxNorm: 010820 1 Tablet(s) PO TID 03/08/2012 07/28/2012 Inactive Celebrex 200 mg Cap RxNorm: 631292 1 Capsule(s) PO QD for joint radu n 03/01/2012 04/29/2012 Inactive amlodipine 5 mg Tab RxNorm: 029211 1 Tablet(s) PO QD 02/26/201202/24 Inactive amlodipine 5 mg Tab RxNorm: 395835 1 Tablet(s) PO QD 02/26/201204/25 Inactive Bactroban 2 % Ointment RxNorm: 347056 Application TOP QID to sores 02/23/2012 No Stop Date Active amlodipine 2.5 mg tablet RxNorm: 618644 1 Tablet(s) PO QHS 02/20/20 12 02/25/2012 Inactive doxycycline hyclate 100 mg Cap RxNorm: 6752264 1 Capsule(s) PO BID 02/20/2012 02/29/2012 Inactive hydrocodone-acetaminophen 10 mg-325 mg Tab RxNorm: 0294351 1-2 T ablet(s) PO QID 02/08/2012 No Stop Date Active alprazolam 0.5 mg Tab RxNorm: 386823 1 Tablet(s) PO BID 02/08/2012 Inactive prn Singulair 10 mg Tab RxNorm: 695203 1 Tablet(s) PO QD 02/08/201204/30 Inactive Soma 350 mg Tab RxNorm: 046915 1 Tablet(s) PO TID for spasm 012 03/07/2012 Inactive Soma 350 mg Tab RxNorm: 078803 1 Tablet(s) PO TID for spasm 012 02/05/2012 Inactive diclofenac sodium 75 mg tablet,delayed release RxNorm: 99819 8 1 Tablet(s) PO BID for pain 02/01/2012 03/18/2012 Inactive Celebrex 200 mg Cap RxNorm: 510045 1 Capsule(s) PO QD for joint radu n 01/30/2012 02/28/2012 Inactive Lasix 40 mg Tab RxNorm: 672000 1 Tablet(s) PO QAM 01/24/2012 03/18/20 12 Inactive potassium chloride ER 20 mEq tablet,extended release(part/cr yst) RxNorm: 644133 2 Tablet(s) PO BID 01/24/2012 02/22/2012 Inactive alprazolam 0.5 mg Tab RxNorm: 926334 1 Tablet(s) PO BID 01/11/2012 Inactive prn hydrocodone-acetaminophen 10 mg-325 mg Tab RxNorm: 9777335 1-2 T ablet(s) PO QID 01/11/2012 No Stop Date Active Ambien 10 mg Tab RxNorm: 084620 1 Tablet(s) PO QHS 01/11/2012 012 Inactive Klor-Con 8 mEq Tab RxNorm: 209619 1 Tablet(s) PO BID 01/11/201201/22 Inactive diclofenac sodium 75 mg Tab, Delayed Release RxNorm: 016943 1 Tablet(s) PO BID for pain 01/10/2012 01/31/2012 Inactive Ambien 10 mg Tab RxNorm: 212419 1 Tablet(s) PO QHS 12/11/2011 012 Inactive alprazolam 0.5 mg Tab RxNorm: 370636 1 Tablet(s) PO BID 12/11/2011 Inactive prn hydrocodone 10 mg-acetaminophen 325 mg tablet RxNorm: 781702 1-2 Tablet(s) PO TID 11/28/2011 No Stop Date Active as needed for pa in - Previous quantity #240, will start dosing for #180 in April 2011 per Doctor Appiah. Ambien 10 mg Tab RxNorm: 175701 1 Tablet(s) PO QHS 11/09/2011 012 Inactive alprazolam 0.5 mg Tab RxNorm: 724868 1 Tablet(s) PO BID 11/09/2011 Inactive prn hydrocodone-acetaminophen 10 mg-325 mg Tab RxNorm: 9891402 1-2 T ablet(s) PO TID 11/06/2011 No Stop Date Active as needed for pain - Previous quantity #240, will start dosing for #180 in April 2011 per Doctor Td. Singulair 10 mg Tab RxNorm: 243566 1 Tablet(s) PO QD 10/13/201110/12 Inactive Singulair 10 mg Tab RxNorm: 878195 1 Tablet(s) PO QD 10/13/201102/06 Inactive hydrocodone-acetaminophen 10 mg-325 mg Tab RxNorm: 3792752 1-2 T ablet(s) PO TID 10/10/2011 10/09/2011 Inactive as needed for pain - Previous quantity #240, will start dosing for #180 in April 2011 per Doctor Td. hydrocodone-acetaminophen 10 mg-325 mg Tab RxNorm: 9166826 1-2 T ablet(s) PO TID 10/09/2011 No Stop Date Active as needed for pain - Previous quantity #240, will start dosing for #180 in April 2011 per Doctor Td. Klor-Con 8 mEq Tab RxNorm: 724865 1 Tablet(s) PO BID 10/02/201101/09 Inactive triamterene 75 mg-hydrochlorothiazide 50 mg tablet RxNorm: 3 52806 1 Tablet(s) PO QD 09/14/2011 03/06/2013 Inactive Ambien 10 mg Tab RxNorm: 303917 1 Tablet(s) PO QHS 09/14/2011 012 Inactive hydrocodone-acetaminophen 10 mg-325 mg Tab RxNorm: 0871612 1-2 T ablet(s) PO TID 09/14/2011 No Stop Date Active as needed for pain - Previous quantity #240, will start dosing for #180 in April 2011 per Doctor Td. alprazolam 0.5 mg Tab RxNorm: 021237 1 Tablet(s) PO BID 09/14/2011 Inactive prn Zithromax 500 mg Tab RxNorm: 6695694 1 Tablet(s) PO QD 09/13/201106/2012 Inactive prednisone 20 mg Tab RxNorm: 758624 1 Tablet(s) PO BID 08/31/2011 Inactive Ambien 10 mg Tab RxNorm: 185690 1 Tablet(s) PO QHS 08/17/2011 011 Inactive hydrocodone-acetaminophen 10 mg-325 mg Tab RxNorm: 1749489 1-2 T ablet(s) PO TID 08/17/2011 No Stop Date Active as needed for pain - Previous quantity #240, will start dosing for #180 in April 2011 per Doctor Td. clonidine 0.2 mg Tab RxNorm: 586219 1 Tablet(s) PO TID 08/17/201112/2011 Inactive Ambien 10 mg Tab RxNorm: 284217 1 Tablet(s) PO QHS 08/17/2011 019 Inactive alprazolam 0.5 mg Tab RxNorm: 586710 1 Tablet(s) PO BID 08/17/2011 Inactive prn hydrocodone-acetaminophen 10 mg-325 mg Tab RxNorm: 4608011 1-2 T ablet(s) PO TID 08/17/2011 08/16/2011 Inactive as needed for pain - Previous quantity #240, will start dosing for #180 in April 2011 per Doctor Td. Singulair 10 mg Tab RxNorm: 220885 1 Tablet(s) PO QD 08/17/201108/16 Inactive Klor-Con 8 mEq Tab RxNorm: 791571 1 Tablet(s) PO QD 08/17/20112011 Inactive alprazolam 0.5 mg Tab RxNorm: 749379 1 Tablet(s) PO BID 07/20/2011 Inactive prn Ambien 10 mg Tab RxNorm: 658295 1 Tablet(s) PO QHS 07/20/2011 012 Inactive Singulair 10 mg Tab RxNorm: 560210 1 Tablet(s) PO QD 07/20/201107/19 Inactive Premarin 1.25 mg tablet RxNorm: 099188 2 Tablet(s) PO QD 07/20/2011 0 01/21/2019 Inactive Premarin 1.25 mg tablet RxNorm: 637224 1-2 Tablet(s) PO QD 07/20/20 11 12/16/2011 Inactive Premarin 1.25 mg Tab RxNorm: 460271 1-2 Tablet(s) PO QD 07/06/2011 Inactive alprazolam 0.5 mg Tab RxNorm: 221864 1 Tablet(s) PO BID 06/22/2011 Inactive prn alprazolam 0.5 mg Tab RxNorm: 775244 1 Tablet(s) PO BID 06/22/2011 Inactive prn Premarin 1.25 mg Tab RxNorm: 710633 1 Tablet(s) PO QD m ay do 90 day fill if desired 06/22/2011 07/05/2011 Inactive hydrocodone-acetaminophen 10 mg-325 mg Tab RxNorm: 0376950 1-2 T ablet(s) PO TID 06/22/2011 No Stop Date Active as needed for pain - Previous quantity #240, will start dosing for #180 in April 2011 per Doctor Td. clonidine 0.2 mg Tab RxNorm: 925329 1 Tablet(s) PO TID 05/25/201103/2011 Inactive triamterene-hydrochlorothiazide 75 mg-50 mg Tab RxNorm: 3108 18 1 Tablet(s) PO QD 05/25/2011 09/13/2011 Inactive alprazolam 0.5 mg Tab RxNorm: 724106 1 Tablet(s) PO BID 05/25/2011 Inactive prn hydrocodone-acetaminophen 10 mg-325 mg Tab RxNorm: 6202918 1-2 T ablet(s) PO TID 05/25/2011 No Stop Date Active as needed for pain - Previous quantity #240, will start dosing for #180 in April 2011 per Doctor Td. Robaxin-750 750 mg Tab RxNorm: 504060 2 Tablet(s) PO QHS 05/22/2011 1 Inactive prn spasm hydrocodone-acetaminophen 10 mg-325 mg Tab RxNorm: 9044422 1-2 T ablet(s) PO TID 04/26/2011 No Stop Date Active as needed for pain - Previous quantity #240, will start dosing for #180 in April 2011 per Doctor Td. alprazolam 0.5 mg Tab RxNorm: 474882 1 Tablet(s) PO BID 04/25/2011 Inactive prn Klor-Con 8 mEq Tab RxNorm: 110736 1 Tablet(s) PO QD 03/30/20112010 Inactive Klor-Con 8 mEq Tab RxNorm: 189101 1 Tablet(s) PO QD 03/29/20112010 Inactive hydrocodone-acetaminophen 10 mg-325 mg Tab RxNorm: 6954121 1-2 T ablet(s) PO TID 03/20/2011 04/25/2011 Inactive as needed for pain - Previous quantity #240, will start dosing for #180 in April 2011 per Doctor Td. alprazolam 0.5 mg Tab RxNorm: 299678 1 Tablet(s) PO BID prn 011 03/30/2011 Inactive Ambien 10 mg Tab RxNorm: 241419 1 Tablet(s) PO QHS 03/01/2011 011 Inactive cyclobenzaprine 10 mg Tab RxNorm: 132612 1 Tablet(s) PO TID 011 03/18/2012 Inactive cyclobenzaprine 10 mg Tab RxNorm: 111694 1 Tablet(s) PO TID 011 01/08/2011 Inactive cyclobenzaprine 10 mg Tab RxNorm: 982414 1 Tablet(s) PO TID 011 12/20/2010 Inactive terbinafine 250 mg Tab RxNorm: 451397 1 Tablet(s) PO QD 12/12/2010 Inactive triamterene-hydrochlorothiazide 75 mg-50 mg Tab RxNorm: 3108 18 1 Tablet(s) PO QD 12/07/2010 06/04/2011 Inactive Klor-Con 8 8 mEq Tab RxNorm: 848191 1 Tablet(s) PO QD 12/07/201001/08 Inactive Premarin 1.25 mg Tab RxNorm: 618616 2 Tablet(s) PO QD 12/07/201001/08 Inactive clonidine 0.2 mg Tab RxNorm: 092813 1 Tablet(s) PO TID 12/07/2010 Inactive hydrocodone-acetaminophen 7.5 mg-650 mg Tab RxNorm: 024580 1 Ta blet(s) PO Q4H 12/05/2010 01/21/2019 Inactive hydrocodone-acetaminophen 7.5 mg-650 mg Tab RxNorm: 309099 1 Ta blet(s) PO Q4H 10/26/2010 11/14/2010 Inactive hydrocodone-acetaminophen 7.5 mg-650 mg Tab RxNorm: 846241 1 Ta blet(s) PO Q4H 10/13/2010 10/25/2010 Inactive hydrocodone-acetaminophen 7.5 mg-650 mg Tab RxNorm: 425496 1 Ta blet(s) PO Q4H 09/15/2010 09/12/2010 Inactive alprazolam 0.5 mg Tab RxNorm: 967688 1 Tablet(s) PO BID prn 011 09/12/2010 Inactive terbinafine 250 mg Tab RxNorm: 042002 1 Tablet(s) PO QD 09/05/2010 Inactive hydrocodone-acetaminophen 7.5 mg-650 mg Tab RxNorm: 519670 1 Ta blet(s) PO Q4H 08/29/2010 09/17/2010 Inactive alprazolam 0.5 mg Tab RxNorm: 783899 1 Tablet(s) PO BID prn 010 09/27/2010 Inactive alprazolam 0.5 mg Tab RxNorm: 942342 1 Tablet(s) PO BID prn 010 09/06/2010 Inactive Klor-Con 8 mEq Tab RxNorm: 696159 1 Tablet(s) PO QD 08/08/20102010 Inactive hydrocodone-acetaminophen 7.5 mg-650 mg Tab RxNorm: 660372 1 Ta blet(s) PO Q4H 08/08/2010 08/27/2010 Inactive Ambien 10 mg Tab RxNorm: 281037 1 Tablet(s) PO QHS 08/08/2010 Inactive clonidine 0.2 mg Tab RxNorm: 756980 1 Tablet(s) PO TID 08/08/2010 Inactive Premarin 1.25 mg Tab RxNorm: 955961 2 Tablet(s) PO QD 08/08/201009/12 Inactive Ambien 10 mg Tab RxNorm: 501016 1 Tablet(s) PO QHS 07/18/2010 Inactive alprazolam 0.5 mg Tab RxNorm: 100535 1 Tablet(s) PO BID prn 010 08/07/2010 Inactive hydrocodone-acetaminophen 7.5 mg-650 mg Tab RxNorm: 749509 1 Ta blet(s) PO Q4H 07/12/2010 07/31/2010 Inactive clonidine 0.2 mg Tab RxNorm: 865151 1 Tablet(s) PO TID 06/20/2010 Inactive terbinafine 250 mg Tab RxNorm: 540596 1 Tablet(s) PO QD 05/24/2010 Inactive Clonidine 0.2 mg Tab RxNorm: 225949 1 Tablet(s) PO TID 05/24/201006/2010 Inactive Ambien 10 mg Tab RxNorm: 780436 1 Tablet(s) PO QHS 05/24/2010 010 Inactive alprazolam 0.5 mg Tab RxNorm: 249619 1 Tablet(s) PO BID 05/24/2010 Inactive Klor-Con 8 mEq Tab RxNorm: 145089 1 Tablet(s) PO QD 05/24/20102009 Inactive alprazolam 0.5 mg Tab RxNorm: 436682 2 Tablet(s) PO QD prn 05/24/20 10 07/17/2010 Inactive triamterene-hydrochlorothiazide 75 mg-50 mg Tab RxNorm: 3108 18 1 Tablet(s) PO QD 05/24/2010 11/19/2010 Inactive Ambien 10 mg Tab RxNorm: 604597 1 Tablet(s) PO QHS 05/23/2010 010 Inactive Alprazolam 0.5 mg Tab RxNorm: 794315 2 Tablet(s) PO QD prn 05/23/2005/23/2010 Inactive Premarin 1.25 mg Tab RxNorm: 182466 2 Tablet(s) PO QD 05/19/201007/12 Inactive Hydrocodone-Acetaminophen 7.5 mg-650 mg Tab RxNorm: 966080 1 Ta blet(s) PO Q4H 05/19/2010 03/20/2011 Inactive Prednisone 20 mg Tab RxNorm: 317702 1 Tablet(s) PO BID 05/17/2010 Inactive Prednisone 20 mg Tab RxNorm: 981619 1 Tablet(s) PO BID 05/06/201001/2010 Inactive Premarin 1.25 mg Tab RxNorm: 463700 Tablet(s) PO 2 M-W-F, and 1 Mm-Za-Dao-Sun 05/05/2010 08/02/2010 Inactive Premarin 1.25 mg Tab RxNorm: 322427 Tablet(s) PO 2 M-W-F, and 1 Ap-Tq-Ozd-Sun 05/04/2010 05/04/2010 Inactive Premarin 1.25 mg Tab RxNorm: 086527 Tablet(s) PO 2 M-W-F, and 1 Va-Jd-Pre-Sun 05/04/2010 05/03/2010 Inactive Prednisone 20 mg Tab RxNorm: 429385 1 Tablet(s) PO BID 04/27/2010 Inactive Alprazolam 0.5 mg Tab RxNorm: 867970 2 Tablet(s) PO QD prn 04/26/20 10 05/22/2010 Inactive Clindamycin 300 mg Cap RxNorm: 334046 2 Capsule(s) PO TID 04/05/2010 04/18/2010 Inactive Terbinafine 250 mg Tab RxNorm: 769359 1 Tablet(s) PO QD 04/04/2010 Inactive Hydrocodone-Acetaminophen 7.5 mg-650 mg Tab RxNorm: 250530 1 Ta blet(s) PO Q4H 03/30/2010 04/18/2010 Inactive Avelox 400 mg Tab RxNorm: 344775 1 Tablet(s) PO QD 03/09/2010 010 Inactive Hydrocodone-Acetaminophen 7.5 mg-650 mg Tab RxNorm: 819432 1 Ta blet(s) PO Q4H 03/08/2010 03/27/2010 Inactive Alprazolam 0.5 mg Tab RxNorm: 979785 2 Tablet(s) PO QD prn 03/08/20 10 04/25/2010 Inactive Klor-Con 8 mEq Tab RxNorm: 787618 1 Tablet(s) PO QD when takes lasi x 03/07/2010 08/03/2010 Inactive Premarin 1.25 mg Tab RxNorm: 113119 1 Tablet(s) PO QD 03/03/201003/11 Inactive Alprazolam 0.5 mg Tab RxNorm: 519347 1 Tablet(s) PO BID PRN 010 No Stop Date Active triamterene-hydrochlorothiazide 75 mg-50 mg Tab RxNorm: 3108 18 1 Tablet(s) PO QD 02/09/2010 02/03/2011 Inactive Hydrocodone-Acetaminophen 10 mg-750 mg Tab RxNorm: 097293 1 Tablet(s) PO Q4H PRN 02/09/2010 03/20/2011 Inactive Clonidine 0.2 mg Tab RxNorm: 977659 1 Tablet(s) PO TID 01/13/201009/2009 Inactive Alprazolam 0.5 mg Tab RxNorm: 772271 1 Tablet(s) PO BID PRN 010 01/12/2010 Inactive Hydrocodone-Acetaminophen 10 mg-750 mg Tab RxNorm: 929590 1 Tablet(s) PO Q4H PRN 01/13/2010 01/12/2010 Inactive ANGELIQ 1 mg-0.5 mg Tab RxNorm: 4263908 1 Tablet(s) PO QD 12/27/2009 01/23/2010 Inactive Lasix 40 mg Tab RxNorm: 974386 1 Tablet(s) PO QAM 12/14/2009 06/11/20 10 Inactive Vitamin B12 1000mcg Tablet RxNorm: 1 Tablet(s) PO QD No Start Date Active cyclobenzaprine 10 mg tablet RxNorm: 436177 1 Tablet(s) PO TID as needed DO NOT USE WITH BACLOFEN No Start Date Active Vitamin D 5,000 unit Tab RxNorm: 1 Tablet(s) PO QD No Start Date Active vitamin E (dl, acetate) 400 unit Cap RxNorm: 464944 1 Capsule(s ) PO QD No Start Date Active Benadryl 25 mg Cap RxNorm: 3216645 Capsule(s) PO PRN No Start Date Inactive amitriptyline 100 mg tablet RxNorm: 085980 1 Tablet(s) PO QHS No St art Date 11/27/2016 Inactive Zithromax Z-Dustin 250 mg tablet RxNorm: 084843 Tablet(s) PO as di rected No Start Date 07/22/2013 Inactive Klor-Con 8 mEq tablet,extended release RxNorm: 756778 1 Tablet( s) PO BID No Start Date 07/28/2012 Inactive scopolamine 1.5 mg 72 hr Transderm Patch RxNorm: 244623 Application TD Q72H for motion sickness No Start Date 05/25/2013 Inactive Klonopin 1 mg tablet RxNorm: 889215 1-2 Tablet(s) PO QHS as nee ded for sleep No Start Date 06/20/2015 Inactive Klor-Con M20 mEq tablet,extended release RxNorm: 386093 2 Tablet(s) PO BID to use with lasix No Start Date 11/11/2013 Inactive Bystolic 5 mg tablet RxNorm: 237258 1 Tablet(s) PO QD No Start Date 1 Inactive Bystolic 10 mg tablet RxNorm: 079032 1 Tablet(s) PO BID No Start Da te 07/06/2015 Inactive Premarin 1.25 mg Tab RxNorm: 079044 Tablet(s) PO 2 -W-, and 1 Zj-Ma-Rba-Sun No Start Date 05/03/2010 Inactive baclofen 20 mg tablet RxNorm: 741084 1 Tablet(s) PO TID as needed for muscle spasm No Start Date 07/22/2015 Inactive hydrocodone-acetaminophen 7.5 mg-650 mg Tab RxNorm: 912944 1 Tablet(s) PO Q4H as needed for pain No Start Date 03/20/2011 Inactive albuterol sulfate 1.25 mg/3 mL Neb Solution RxNorm: 228536 1 Unit Dose INH Q4H 2boxes No Start Date 09/06/2015 Inactive Butrans 20 mcg/hour Transderm Patch RxNorm: 263321 1 TD WEEKLY apply to skin weekly after removing previous. No Start Date 07/22/2013 Inactive Medrol (Dustin) 4 mg tablets in a dose pack RxNorm: 288278 Tablet(s) PO As Directed No Start Date 07/30/2016 Inactive hydrocodone-acetaminophen 10 mg-325 mg Tab RxNorm: 3616174 1-2 Tablet(s) PO TID as needed for pain No Start Date 03/19/2011 Inactive Klonopin 1 mg tablet RxNorm: 697826 1 Tablet(s) PO QHS No Start Date 02/28/2016 Inactive honey topical RxNorm: topical No Start Date 06/16/2018 Inactive Clonidine 0.2 mg Tab RxNorm: 274351 1 Tablet(s) PO TID No Start Date 01/12/2010 Inactive ketorolac 10 mg tablet RxNorm: 712359 1 Tablet(s) PO Q8H No Start D ate 03/18/2012 Inactive as needed for headache Singulair 10 mg Tab RxNorm: 512389 1 Tablet(s) PO QD No Start Date Inactive Premarin 1.25 mg Tab RxNorm: 928107 1 Tablet(s) PO QD No Start Date 1 Inactive Flonase 50 mcg/Actuation Nasal Viola RxNorm: 5631725 1 Viola CECELIA AL BID No Start Date 03/18/2012 Inactive Terbinafine 250 mg Tab RxNorm: 727204 1 Tablet(s) PO QD No Start Da te 04/03/2010 Inactive Fexofenadine 180 mg Tab RxNorm: 6366683 1 Tablet(s) PO QD No Start Date 09/06/2015 Inactive baclofen 20 mg tablet RxNorm: 360928 1 Tablet(s) PO TID as needed N o Start Date 05/25/2014 Inactive Diovan 160 mg Tab RxNorm: 973910 1 Tablet(s) PO QD No Start Date 09/12 Inactive mupirocin 2 % topical ointment RxNorm: 700788 1 Application TOP QID No Start Date 04/25/2016 Inactive ZOFRAN ODT 4 mg Tab, Rapid Dissolve RxNorm: 928920 1 Tablet(s) PO Q4H No Start Date 03/18/2012 Inactive as needed for nausea and vomiting Alprazolam 0.5 mg Tab RxNorm: 945823 1 Tablet(s) PO BID PRN No Star t Date 01/12/2010 Inactive cyclobenzaprine 10 mg tablet RxNorm: 422709 1 Tablet(s) PO TID as needed for muscle spasm No Start Date 10/08/2017 Inactive Albuterol 0.083% Aerosol Solution RxNorm: 1 Appl ication INH Q4H Use one ampule every 4 hrs with nebulizer as needed for shortness of breath. No Start Date 10/09/2010 Inactive lorazepam 1 mg tablet RxNorm: 726974 1 1/2 Tablet(s) PO QHS No Star t Date 02/02/2016 Inactive Melatonin 3 mg Tab RxNorm: 149482 Tablet(s) PO PRN No Start Date 07/11 Inactive Medrol (Dustin) 4 mg Tabs in a Dose Pack RxNorm: 999362 Tablet(s) PO N o Start Date 11/28/2010 Inactive lorazepam 1 mg tablet RxNorm: 172447 1 Tablet(s) PO QHS as need ed for sleep No Start Date 01/30/2016 Inactive hydrocodone-acetaminophen 10 mg-325 mg Tab RxNorm: 3521389 1-2 Tablet(s) PO QID as needed for severe pain No Start Date 03/24/2012 Inactive celecoxib 200 mg capsule RxNorm: 549949 1 Capsule(s) PO BID No Star t Date 06/26/2019 Inactive amlodipine 5 mg-benazepril 20 mg capsule RxNorm: 425120 1 Capsu le(s) PO QD No Start Date 04/10/2017 Inactive Bystolic 20 mg tablet RxNorm: 238956 1/2 Tablet(s) PO QAM No Start Date 01/23/2016 Inactive Bystolic 20 mg tablet RxNorm: 753074 1 Tablet(s) PO QAM No Start Da te 04/25/2016 Inactive Ambien 10 mg Tab RxNorm: 923697 1 Tablet(s) PO QHS No Start Date 05/11 Inactive Klor-Con 8 mEq Tab RxNorm: 855029 1 Tablet(s) PO QD when takes lasix No Start Date 03/06/2010 Inactive aspirin 81 mg tablet RxNorm: 407781 1 Tablet(s) PO QD No Start Date 0 01/29/2018 Inactive hydrocodone-acetaminophen 10 mg-325 mg Tab RxNorm: 0662591 1-2 T ablet(s) PO QID No Start Date 01/10/2012 Inactive Bystolic 10 mg tablet RxNorm: 737908 1 Tablet(s) PO QAM take one daily in the morning. No Start Date 05/28/2013 Inactive nystatin 100,000 unit/mL Oral Susp RxNorm: 226177 5 Milliliter( s) PO QID No Start Date 03/18/2012 Inactive swish and spit scopolamine 1.5 mg 72 hr Transderm Patch RxNorm: 651355 1 Unit Dose TD Q72H for motion sickness No Start Date 12/23/2013 Inactive Hydrocodone-Acetaminophen 10 mg-750 mg Tab RxNorm: 609767 1 Tablet(s) PO Q4H PRN No Start Date 01/12/2010 Inactive Soma 350 mg tablet RxNorm: 754737 1 Tablet(s) PO TID as needed for spasm No Start Date 01/12/2013 Inactive baclofen 10 mg tablet RxNorm: 206502 1 Tablet(s) PO TID as needed for muscle spasm No Start Date 09/18/2019 Inactive Soma 350 mg Tab RxNorm: 030220 1 Tablet(s) PO TID for spasm No Star t Date 01/31/2012 Inactive Co Q-10 400 mg capsule RxNorm: 336078 1 Capsule(s) PO QD No Start D ate 01/21/2019 Inactive nystatin 100,000 unit/gram topical cream RxNorm: 576396 Applica tion TOP BID No Start Date 03/22/2015 Inactive Exforge 5 mg-160 mg Tab RxNorm: 560549 1 Tablet(s) PO QD No Start D ate 10/09/2010 Inactive Hydrocodone-Acetaminophen 7.5 mg-650 mg Tab RxNorm: 331831 1 Ta blet(s) PO Q4H No Start Date 03/07/2010 Inactive Robaxin-750 750 mg Tab RxNorm: 032148 1-2 Tablet(s) PO TID prn spasm No Start Date 05/21/2011 Inactive amlodipine 5 mg tablet RxNorm: 814681 1 Tablet(s) PO QHS No Start D ate 09/29/2015 Inactive oxycodone-acetaminophen 10 mg-325 mg tablet RxNorm: 3018289 1-2 Tablet(s) PO Q6H No Start Date 06/16/2018 Inactive Triamterene-Hydrochlorothiazide 75 mg-50 mg Tab RxNorm: 3108 18 1 Tablet(s) PO QD No Start Date 02/08/2010 Inactive Alprazolam 0.5 mg Tab RxNorm: 216522 2 Tablet(s) PO QD prn No Start Date 03/07/2010 Inactive Bystolic 20 mg tablet RxNorm: 173391 1 Tablet(s) PO QAM No Start Da te 08/17/2015 Inactive ketorolac 10 mg tablet RxNorm: 689851 1 Tablet(s) PO QID prn he adache No Start Date 07/17/2012 Inactive acyclovir 800 mg Tab RxNorm: 355614 1 Tablet(s) PO BID No Start Date 03/18/2012 Inactive duloxetine 60 mg capsule,delayed release RxNorm: 014847 1 Capsu le(s) PO QD No Start Date 09/29/2015 Inactive Norvasc 5 mg tablet RxNorm: 148592 1 Tablet(s) PO QHS No Start Date 1 10/18/2014 Inactive promethazine 25 mg tablet RxNorm: 660800 1 Tablet(s) PO Q8H use sparingly No Start Date 07/22/2013 Inactive alprazolam 0.5 mg tablet RxNorm: 435039 3 Tablet(s) PO QHS No Start Date 06/06/2015 Inactive Lunesta 3 mg tablet RxNorm: 350271 1 Tablet(s) PO QHS No Start Date 0 09/20/2017 Inactive hydrocodone-acetaminophen 10 mg-325 mg Tab RxNorm: 0628924 1-2 Tablet(s) PO TID as needed for pain No Start Date 12/10/2011 Inactive Coricidin HBP Cough & Cold 4 mg-30 mg Tab RxNorm: 9469270 Tablet (s) PO PRN No Start Date 10/09/2010 Inactive Bactroban 2 % Ointment RxNorm: 318748 Application TOP QID to so res No Start Date 02/22/2012 Inactive Flonase 50 mcg/actuation Nasal Vi[place] RxNorm: 342347 2 [place] QHS No Start Date 03/03/2014 Inactive Medication Administered No Medication Administered data Immunizations Vaccine Codes Date Status Tetanus, Diptheria, Pertussis CVX: 115 02/27/2014 Results Observation Observation Code Item Item Code Result Date S ervice Location COMPREHENS[facility] MET[facility]OLIC 34630 AST 15 U/L 2019 Unknown [facility] 43669 ALT 13 U/L 2019 Unknown [facility] 37870 BUN 12 mg/dL 2019 Unknown [facility] 24589 ALBUMIN 3.9 g/dL 2019 Unknown COMPREHENSIVE METABOLIC 20593 CHLORIDE 97 mmol/L 2019 Unknown COMPREHENSIVE METABOLIC 33361 Bili Total 0.4 mg/dL 09/29 Unknown COMPREHENSIVE METABOLIC 96814 ALK PHOS 130 U/L 2019 Unknown COMPREHENSIVE METABOLIC 40005 SODIUM 136 mmol/L 09/29 Unknown COMPREHENSIVE METABOLIC 48022 CREATININE 0.92 mg/dL 09/11 Unknown COMPREHENSIVE METABOLIC 26896 CALCIUM 9.1 mg/dL 2019 Unknown COMPREHENS[facility] METABOLIC 89250 POTASSIUM 4.4 mmol/L 09/29 Unknown COMPREHENSIVE METABOLIC 88695 Total Protein 6.2 g/dL Unknown COMPREHENS[facility] MET[facility]OL[facility] 47559 Glucose 391 mg/dL 2019 Unknown COMPREHENSIVE METABOLIC 51195 Bicarbonate 30 mmol/L 09/11 Unknown COMPREHENSIVE METABOLIC 20786 AGAP 9 mmol/L 2019 Unknown GFR CALC 3702632 GFR Non Afr Amr >60 mL/min 09/29/2019 Un known GFR CALC 5598314 GFR Afr Amr >60 mL/min 09/29/2019 Unknow n COMPLETE BLOOD COUNT 0319545 WBC 10.7 10e9/L 018 Unknown COMPLETE BLOOD COUNT 4864928 RBC 4.59 10e12/L 2017 Unknown COMPLETE BLOOD COUNT 4620515 HEMOGLOBIN 14.8 g/dL 12/11/19 18 Unknown COMPLETE BLOOD COUNT 7949613 HEMATOCRIT 44.9 % 12/11/19 18 Unknown COMPLETE BLOOD COUNT 7844126 MCV 97.8 fL 8 Unknown COMPLETE BLOOD COUNT 3616008 MCH 32.2 pg 8 Unknown COMPLETE BLOOD COUNT 3149705 MCHC 33.0 g/dL 8 Unknown COMPLETE BLOOD COUNT 5010041 PLATELET COUNT 261 10e9/L 10/2017 Unknown COMPLETE BLOOD COUNT 4681066 Mean Plt Volume 9.5 fL 10/2017 Unknown COMPLETE BLOOD COUNT 9034977 Neut Auto 59.9 % 8 Unknown COMPLETE BLOOD COUNT 1475936 Lymph Auto 27.4 % 12/11/19 18 Unknown COMPLETE BLOOD COUNT 6978837 [place] Auto 8.2 % 8 Unknown COMPLETE BLOOD COUNT 7502381 RDW 13.3 % 8 Unknown COMPLETE BLOOD COUNT 4209541 Eos Auto 4.1 % 8 Unknown COMPLETE BLOOD COUNT 9680117 Baso Auto 0.4 % 8 Unknown COMPLETE BLOOD COUNT 2236389 Neutrophil Abs 6.41 10e9/L Unknown COMPLETE BLOOD COUNT 5660704 Lymphocyte Abs 2.93 10e9/L Unknown COMPLETE BLOOD COUNT 3278177 Monocyte Abs 0.88 10e9/L 10/2017 Unknown COMPLETE BLOOD COUNT 7148458 Eosinophil Abs 0.44 10e9/L Unknown COMPLETE BLOOD COUNT 4149171 RDW-SD 46.2 fL 8 Unknown COMPLETE BLOOD COUNT [id number] Basophil Abs 0.04 10e9/L 10/2017 Unknown THYROID STIMULATING HORMONE 13648 TSH 4.015 uIU/mL 12/10/2017 Unknown COMPREHENSIVE METABOLIC 66756 AST 25 U/L 2017 Unknown COMPREHENSIVE METABOLIC 13904 ALT 17 U/L 2017 Unknown COMPREHENSIVE METABOLIC 68788 BUN 19 mg/dL 2017 Unknown COMPREHENSIVE METABOLIC 67695 ALBUMIN 4.0 g/dL 2017 Unknown COMPREHENSIVE METABOLIC 53219 CHLORIDE 91 mmol/L 2017 Unknown COMPREHENSIVE METABOLIC 12264 Bili Total 0.5 mg/dL 12/10 Unknown COMPREHENSIVE METABOLIC 85279 ALK PHOS 75 U/L 2017 Unknown COMPREHENSIVE METABOLIC 90589 SODIUM 136 mmol/L 12/10 Unknown COMPREHENSIVE METABOLIC 80548 CREATININE 1.05 mg/dL 10/2017 Unknown COMPREHENSIVE METABOLIC 74398 CALCIUM 8.9 mg/dL 2017 Unknown COMPREHENSIVE METABOLIC 84739 POTASSIUM 3.4 mmol/L 12/10 Unknown COMPREHENSIVE METABOLIC 34316 Total Protein 6.5 g/dL Unknown COMPREHENSIVE METABOLIC 45743 Glucose 138 mg/dL 2017 Unknown COMPREHENSIVE METABOLIC 17034 Bicarbonate 35 mmol/L 10/2017 Unknown COMPREHENSIVE METABOLIC 09407 AGAP 10 mmol/L 2017 Unknown MEAN GLUC 8847019 Calc Mean Gluc 171 mg/dL 12/10/2017 Unkn own LIPID GROUP 21497 Cholesterol 204 mg/dL 12/10/2017 Unkno wn LIPID GROUP 87994 Triglyceride 411 mg/dL 12/10/2017 Unkn own LIPID GROUP 19799 HDL CHOLESTEROL 50 mg/dL 12/10/2017 U nknown LIPID GROUP 79309 Chol/HDL Ratio 4.08 ratio 12/10/2017 U nknown LIPID GROUP 84593 NON-HDL Chol 154 mg/dL 12/10/2017 Unkn own LIPID GROUP 22480 LDL Cholesterol N/A Trig >400 018 Unknown GLYCOSYLATED HEMOGLOBIN TEST 37226 Hgb A1c 40214-6 7.6 % 0 12/10/2017 Unknown FREE T4 05157 T4 Free 1.40 ng/dL 12/10/2017 Unknown GFR CALC 4057945 GFR Non Afr Amr 55 mL/min 12/10/2017 Unk nown GFR CALC 5301508 GFR Afr Amr >60 mL/min 12/10/2017 Unknow n GFR CALC 0323314 GFR Non Afr Amr 48 mL/min 06/28/2017 Unk nown GFR CALC 6130107 GFR Afr Amr 59 mL/min 06/28/2017 Unknown COMPREHENSIVE METABOLIC 55953 AST 32 U/L 2016 Unknown COMPREHENSIVE METABOLIC 11050 ALT 22 U/L 2016 Unknown COMPREHENSIVE METABOLIC 39777 BUN 23 mg/dL 2016 Unknown COMPREHENSIVE METABOLIC 41679 ALBUMIN 4.7 g/dL 2016 Unknown COMPREHENSIVE METABOLIC 88336 CHLORIDE 89 mmol/L 2016 Unknown COMPREHENSIVE METABOLIC 81519 Bili Total 0.5 mg/dL 06/28 Unknown COMPREHENSIVE METABOLIC 10144 ALK PHOS 90 U/L 2016 Unknown COMPREHENSIVE METABOLIC 56523 SODIUM 135 mmol/L 06/28 Unknown COMPREHENSIVE METABOLIC 75899 CREATININE 1.18 mg/dL 06/10 Unknown COMPREHENSIVE METABOLIC 61011 CALCIUM 9.7 mg/dL 2016 Unknown COMPREHENSIVE METABOLIC 10882 POTASSIUM 3.5 mmol/L 06/28 Unknown COMPREHENSIVE METABOLIC 59918 Total Protein 7.7 g/dL Unknown COMPREHENSIVE METABOLIC 72930 Glucose 129 mg/dL 2016 Unknown COMPREHENSIVE METABOLIC 11869 Bicarbonate 34 mmol/L 06/10 Unknown COMPREHENSIVE METABOLIC 42330 AGAP 12 mmol/L 2016 Unknown LIPID GROUP 19044 HDL TEST 64 MG/DL 08/27/2014 Unknown LIPID GROUP 24603 TRIG 222 MG/DL 08/27/2014 Unknown LIPID GROUP 59045 TEST LDL 209 MG/DL 08/27/2014 Unknown LIPID GROUP 96398 CHOL 317 MG/DL 08/27/2014 Unknown LIPID GROUP 33387 RCHOL/HDL 4.95 RATIO 08/27/2014 Unknow n LIPID GROUP 22149 NON-HDL CH 253 MG/DL 08/27/2014 Unknow n GFR CALC 9627594 GFR AA >60 ML/MIN 08/27/2014 Unknown GFR CALC 1589039 GFR NON-AA >60 ML/MIN 08/27/2014 Unknown COMPLETE BLOOD COUNT 8414897 WBC 7.0 10e9/L 08/27/20 14 Unknown COMPLETE BLOOD COUNT [id number] RBC 4.98 10e12/L 2013 Unknown COMPLETE BLOOD COUNT 3828862 HGB 15.6 g/dL 4 Unknown COMPLETE BLOOD COUNT 6069395 HCT DET 46.5 % 4 Unknown COMPLETE BLOOD COUNT 2043077 MCV 93.4 fL 4 Unknown COMPLETE BLOOD COUNT 0984810 MCH 31.3 pg 4 Unknown COMPLETE BLOOD COUNT 7442398 MCHC 33.5 g/dL 4 Unknown COMPLETE BLOOD COUNT 2574893 PLT 309 10e9/L 08/27/20 14 Unknown COMPLETE BLOOD COUNT 4766492 MPV 9.6 fL 4 Unknown COMPLETE BLOOD COUNT 3397472 CADEN % 57.2 % 4 Unknown COMPLETE BLOOD COUNT 5468470 LY % 33.2 % 4 Unknown COMPLETE BLOOD COUNT 0632234 MON % 7.3 % 4 Unknown COMPLETE BLOOD COUNT 3087932 EOS % 2.0 % 4 Unknown COMPLETE BLOOD COUNT 5003876 BASO % 0.3 % 4 Unknown COMPLETE BLOOD COUNT 3203807 RDW 13.7 % 4 Unknown COMPLETE BLOOD COUNT 7047216 ABS CADEN 4.00 10e9/L 014 Unknown COMPLETE BLOOD COUNT 0473006 ABS LYMPH 2.32 10e9/L 014 Unknown COMPLETE BLOOD COUNT 5932426 ABS MONO 0.51 10e9/L 014 Unknown COMPLETE BLOOD COUNT 8378163 ABS EOS 0.14 10e9/L 014 Unknown COMPLETE BLOOD COUNT 5420581 ABS BASO 0.02 10e9/L 014 Unknown COMPLETE BLOOD COUNT 3052381 RDW-SD 45.1 fL 4 Unknown COMPREHENSIVE METABOLIC 14297 AST 13 U/L 2013 Unknown COMPREHENSIVE METABOLIC 87707 ALT 11 IU/L 2013 Unknown COMPREHENSIVE METABOLIC 06088 BUN 23 MG/DL 2013 Unknown COMPREHENSIVE METABOLIC 20837 ALBUMIN 4.4 GM/DL 2013 Unknown COMPREHENSIVE METABOLIC 41180 CHLORIDE 99 MMOL/L 2013 Unknown COMPREHENSIVE METABOLIC 11932 BILI TOT 0.5 MG/DL 2013 Unknown COMPREHENSIVE METABOLIC 23157 ALK PHOS 56 U/L 2013 Unknown COMPREHENSIVE METABOLIC 09409 SODIUM 138 MMOL/L 08/27 Unknown COMPREHENSIVE METABOLIC 99524 CREATININE 0.95 MG/DL 08/10 Unknown COMPREHENSIVE METABOLIC 22360 CALCIUM 9.8 MG/DL 2013 Unknown COMPREHENSIVE METABOLIC 57845 POTASSIUM 3.5 MMOL/L 08/27 Unknown COMPREHENSIVE METABOLIC 14904 PROT TOT 6.8 GM/DL 2013 Unknown COMPREHENSIVE METABOLIC 19379 Glucose 90 MG/DL 2013 Unknown COMPREHENSIVE METABOLIC 94826 BICARB 34 MMOL/L 2013 Unknown COMPREHENSIVE METABOLIC 47853 ANION GAP 5 MEQ/L 2013 Unknown LIPASE 50195 LIPASE 11 IU/L 07/21/2014 Unknown AMYLASE 18936 AMYLASE 39 IU/L 07/21/2014 Unknown HEMOGLOBIN A1C (GLYCOSYLATED) 9485128 A1C HPLC 68861-3 6.2 % 03/05/2013 Unknown THYROID STIMULATING HORMONE 43317 TSH 6.986 uIU/ML 03/05/2013 Unknown COMPLETE BLOOD COUNT 1687911 WBC 12.7 10e9/L 013 Unknown COMPLETE BLOOD COUNT 6022828 RBC 4.53 10e12/L 2012 Unknown COMPLETE BLOOD COUNT [id number] HGB 14.7 g/dL 3 Unknown COMPLETE BLOOD COUNT 6213707 HCT DET 43.1 % 3 Unknown COMPLETE BLOOD COUNT 4807647 MCV 95.1 fL 3 Unknown COMPLETE BLOOD COUNT 2311500 MCH 32.5 pg 3 Unknown COMPLETE BLOOD COUNT 6504188 MCHC 34.1 g/dL 3 Unknown COMPLETE BLOOD COUNT 3754257 PLT 346 10e9/L 03/05/20 13 Unknown COMPLETE BLOOD COUNT 1467167 MPV 9.5 fL 3 Unknown COMPLETE BLOOD COUNT 7783796 CADEN % 67.6 % 3 Unknown COMPLETE BLOOD COUNT 8341477 LY % 22.1 % 3 Unknown COMPLETE BLOOD COUNT 6461538 MON % 6.6 % 3 Unknown COMPLETE BLOOD COUNT 7152924 EOS % 3.3 % 3 Unknown COMPLETE BLOOD COUNT 6304047 BASO % 0.4 % 3 Unknown COMPLETE BLOOD COUNT 1832514 RDW 14.0 % 3 Unknown COMPLETE BLOOD COUNT 7699731 ABS CADEN 8.59 10e9/L 013 Unknown COMPLETE BLOOD COUNT 5937165 ABS LYMPH 2.81 10e9/L 013 Unknown COMPLETE BLOOD COUNT 7638877 ABS MONO 0.84 10e9/L 013 Unknown COMPLETE BLOOD COUNT 8279713 ABS EOS 0.42 10e9/L 013 Unknown COMPLETE BLOOD COUNT 5389336 ABS BASO 0.05 10e9/L 013 Unknown COMPLETE BLOOD COUNT 7190114 RDW-SD 46.0 fL 3 Unknown FREE T4 77062 FREE T4 1.14 NG/DL 03/05/2013 Unknown COMPREHENSIVE METABOLIC 86354 AST 17 U/L 2012 Unknown COMPREHENSIVE METABOLIC 76316 ALT 12 IU/L 2012 Unknown COMPREHENSIVE METABOLIC 17189 BUN 24 MG/DL 2012 Unknown COMPREHENSIVE METABOLIC 43950 ALBUMIN 4.2 GM/DL 2012 Unknown COMPREHENSIVE METABOLIC 23936 CHLORIDE 93 MMOL/L 2012 Unknown COMPREHENSIVE METABOLIC 68112 BILI TOT 0.5 MG/DL 2012 Unknown COMPREHENSIVE METABOLIC 26791 ALK PHOS 75 U/L 2012 Unknown COMPREHENSIVE METABOLIC 09817 SODIUM 141 MMOL/L 03/05 Unknown COMPREHENSIVE METABOLIC 93899 CREATININE 1.36 MG/DL 02/09 Unknown COMPREHENSIVE METABOLIC 69721 CALCIUM 9.2 MG/DL 2012 Unknown COMPREHENSIVE METABOLIC 98170 POTASSIUM 3.1 MMOL/L 03/05 Unknown COMPREHENSIVE METABOLIC 07459 PROT TOT 6.9 GM/DL 2012 Unknown COMPREHENSIVE METABOLIC 67222 Glucose 123 MG/DL 2012 Unknown COMPREHENSIVE METABOLIC 47612 BICARB 36 MMOL/L 2012 Unknown COMPREHENSIVE METABOLIC 07184 ANION GAP 12 MEQ/L 2012 Unknown GFR CALC 5844496 GFR AA 51.0L ML/MIN 03/05/2013 Unknow n GFR CALC 4560459 GFR NON-AA 42.0L ML/MIN 03/05/2013 Unkno wn COMPREHENSIVE METABOLIC 96182 AST 14 U/L 2012 Unknown COMPREHENSIVE METABOLIC 93990 ALT 11 IU/L 2012 Unknown COMPREHENSIVE METABOLIC 44168 BUN 16 MG/DL 2012 Unknown COMPREHENSIVE METABOLIC 60414 ALBUMIN 4.2 GM/DL 2012 Unknown COMPREHENSIVE METABOLIC 93199 CHLORIDE 98 MMOL/L 2012 Unknown COMPREHENSIVE METABOLIC 59266 BILI TOT 0.4 MG/DL 2012 Unknown COMPREHENSIVE METABOLIC 80946 ALK PHOS 77 U/L 2012 Unknown COMPREHENSIVE METABOLIC 20517 SODIUM 139 MMOL/L 09/25 Unknown COMPREHENSIVE METABOLIC 32010 CREATININE 0.86 MG/DL 09/10 Unknown COMPREHENSIVE METABOLIC 37891 CALCIUM 9.5 MG/DL 2012 Unknown COMPREHENSIVE METABOLIC 94457 POTASSIUM 3.8 MMOL/L 09/25 Unknown COMPREHENSIVE METABOLIC 35576 PROT TOT 6.8 GM/DL 2012 Unknown COMPREHENSIVE METABOLIC 03595 Glucose 91 MG/DL 2012 Unknown COMPREHENSIVE METABOLIC 85947 BICARB 32 MMOL/L 2012 Unknown COMPREHENSIVE METABOLIC 52276 ANION GAP 9 MEQ/L 2012 Unknown FREE T4 23014 FREE T4 0.98 NG/DL 09/25/2012 Unknown THYROID STIMULATING HORMONE 83498 TSH 1.736 uIU/ML 09/25/2012 Unknown C-REACTIVE PROTEIN (CRP) QUANT 67468 CRP 2.3 MG/DL 09/25/2012 Unknown COMPLETE BLOOD COUNT 0354625 WBC 11.9 10e9/L 013 Unknown COMPLETE BLOOD COUNT 4389714 RBC 4.87 10e12/L 2012 Unknown COMPLETE BLOOD COUNT 0457513 HGB 15.1 g/dL 3 Unknown COMPLETE BLOOD COUNT 6457673 HCT DET 44.8 % 3 Unknown COMPLETE BLOOD COUNT 9133859 MCV 92.0 fL 3 Unknown COMPLETE BLOOD COUNT 1139603 MCH 31.0 pg 3 Unknown COMPLETE BLOOD COUNT 4949844 MCHC 33.7 g/dL 3 Unknown COMPLETE BLOOD COUNT 0776728 PLT 343 10e9/L 09/25/19 13 Unknown COMPLETE BLOOD COUNT 5709351 MPV 9.0 fL 3 Unknown COMPLETE BLOOD COUNT 1309079 CADEN % 68.2 % 3 Unknown COMPLETE BLOOD COUNT 5536113 LY % 22.4 % 3 Unknown COMPLETE BLOOD COUNT 1054961 MON % 6.4 % 3 Unknown COMPLETE BLOOD COUNT 9625047 EOS % 2.7 % 3 Unknown COMPLETE BLOOD COUNT 3315730 BASO % 0.3 % 3 Unknown COMPLETE BLOOD COUNT 4258793 RDW 13.8 % 3 Unknown COMPLETE BLOOD COUNT 7194469 ABS CADEN 8.12 10e9/L 013 Unknown COMPLETE BLOOD COUNT 1136105 ABS LYMPH 2.67 10e9/L 013 Unknown COMPLETE BLOOD COUNT 6815711 ABS MONO 0.76 10e9/L 013 Unknown COMPLETE BLOOD COUNT 1211282 ABS EOS 0.32 10e9/L 013 Unknown COMPLETE BLOOD COUNT 1835066 ABS BASO 0.04 10e9/L 013 Unknown COMPLETE BLOOD COUNT 5288272 RDW-SD 45.6 fL 3 Unknown GFR CALC 3597782 GFR AA >60 ML/MIN 09/25/2012 Unknown GFR CALC 1988372 GFR NON-AA >60 ML/MIN 09/25/2012 Unknown ERYTHROCYTE SEDIMENTATION RATE 04526 ESR 19 MM/HR 05/06/2012 Unknown VITAMIN B 12 FOLIC ACID 93049|71555 VIT B 12 922 PG/ML 04/11 Unknown VITAMIN B 12 FOLIC ACID 78284|58120 FOLIC ACID 13.6 NG/ML Unknown URIC ACID 94465 URIC ACID 7.8 MG/DL 05/06/2012 Unknown COMPLETE BLOOD COUNT 19292 WBC 11.9 10e9/L 012 Unknown COMPLETE BLOOD COUNT 88796 RBC 5.30 10e12/L 2011 Unknown COMPLETE BLOOD COUNT 54096 HGB 16.6 g/dL 2 Unknown COMPLETE BLOOD COUNT 72602 HCT DET 47.2 % 2 Unknown COMPLETE BLOOD COUNT 93032 MCV 89.1 fL 2 Unknown COMPLETE BLOOD COUNT 05426 MCH 31.3 pg 2 Unknown COMPLETE BLOOD COUNT 85957 MCHC 35.2 g/dL 2 Unknown COMPLETE BLOOD COUNT 94564 PLT 362 10e9/L 05/06/20 12 Unknown COMPLETE BLOOD COUNT 22013 MPV 9.4 fL 2 Unknown COMPLETE BLOOD COUNT 46083 CADEN % 68.2 % 2 Unknown COMPLETE BLOOD COUNT 44180 LY % 22.0 % 2 Unknown COMPLETE BLOOD COUNT 39046 MON % 6.9 % 2 Unknown COMPLETE BLOOD COUNT 36057 EOS % 2.6 % 2 Unknown COMPLETE BLOOD COUNT 40034 BASO % 0.3 % 2 Unknown COMPLETE BLOOD COUNT 78588 RDW 12.8 % 2 Unknown COMPLETE BLOOD COUNT 38171 ABS CADEN 8.12 10e9/L 012 Unknown COMPLETE BLOOD COUNT 87541 ABS LYMPH 2.62 10e9/L 012 Unknown COMPLETE BLOOD COUNT 60371 ABS MONO 0.82 10e9/L 012 Unknown COMPLETE BLOOD COUNT 12466 ABS EOS 0.31 10e9/L 012 Unknown COMPLETE BLOOD COUNT 03736 ABS BASO 0.04 10e9/L 012 Unknown COMPLETE BLOOD COUNT 28303 RDW-SD 41.5 fL 2 Unknown GFR CALC 3312737 GFR AA >60 ML/MIN 05/06/2012 Unknown GFR CALC 1294390 GFR NON-AA 58.0L ML/MIN 05/06/2012 Unkno wn FREE T4 10775 FREE T4 1.15 NG/DL 05/06/2012 Unknown THYROID STIMULATING HORMONE 07227 TSH 1.568 uIU/ML 05/06/2012 Unknown COMPREHENSIVE METABOLIC 47969 AST 20 U/L 2011 Unknown COMPREHENSIVE METABOLIC 79802 ALT 12 IU/L 2011 Unknown COMPREHENSIVE METABOLIC 01863 BUN 20 MG/DL 2011 Unknown COMPREHENSIVE METABOLIC 18535 ALBUMIN 4.5 GM/DL 2011 Unknown COMPREHENSIVE METABOLIC 15380 CHLORIDE 91 MMOL/L 2011 Unknown COMPREHENSIVE METABOLIC 56974 BILI TOT 0.4 MG/DL 2011 Unknown COMPREHENSIVE METABOLIC 61904 ALK PHOS 73 U/L 2011 Unknown COMPREHENSIVE METABOLIC 00900 SODIUM 139 MMOL/L 05/06 Unknown COMPREHENSIVE METABOLIC 38301 CREATININE 1.02 MG/DL 04/11 Unknown COMPREHENSIVE METABOLIC 01188 CALCIUM 9.7 MG/DL 2011 Unknown COMPREHENSIVE METABOLIC 60854 POTASSIUM 3.1 MMOL/L 05/06 Unknown COMPREHENSIVE METABOLIC 34451 PROT TOT 7.3 GM/DL 2011 Unknown COMPREHENSIVE METABOLIC 10968 Glucose 118 MG/DL 2011 Unknown COMPREHENSIVE METABOLIC 57468 BICARB 33 MMOL/L 2011 Unknown COMPREHENSIVE METABOLIC 08930 ANION GAP 15 MEQ/L 2011 Unknown Procedures Procedure Codes Date ROUTINE VENIPUNCTURE CPT-4: 81870 09/29/2019 URINALYSIS NONAUTO W/O SCOPE CPT-4: 94878 09/29/2019 COMPREHEN METABOLIC PANEL CPT-4: 67216 09/29/2019 LIPID PANEL CPT-4: 08212 09/29/2019 A1C HPLC CPT-4: 97879 09/29/2019 ASSAY OF FREE THYROXINE CPT-4: 99107 09/29/2019 ASSAY THYROID STIM HORMONE CPT-4: 09812 09/29/2019 COMPLETE CBC W/AUTO DIFF WBC CPT-4: 55810 09/29/2019 URINALYSIS NONAUTO W/O SCOPE CPT-4: 25836 09/30/2018 MICROALBUMIN QUANTITATIVE CPT-4: 49268 09/30/2018 CEFTRIAXONE SODIUM INJECTION CPT-4: J0696 06/19/2018 THER/PROPH/DIAG INJ SC/IM CPT-4: 51131 06/19/2018 CEFTRIAXONE SODIUM INJECTION CPT-4: J0696 06/17/2018 THER/PROPH/DIAG INJ SC/IM CPT-4: 27531 06/17/2018 THER/PROPH/DIAG INJ SC/IM CPT-4: 47954 05/16/2018 KETOROLAC TROMETHAMINE INJ CPT-4: J1885 05/16/2018 ONDANSETRON HCL INJECTION CPT-4: J2405 05/16/2018 THER/PROPH/DIAG INJ SC/IM CPT-4: 52577 05/16/2018 ROUTINE VENIPUNCTURE CPT-4: 28870 03/20/2018 COMPREHEN METABOLIC PANEL CPT-4: 84781 03/20/2018 DEXAMETHASONE SODIUM PHOS CPT-4: J1100 02/11/2018 THER/PROPH/DIAG INJ SC/IM CPT-4: 75257 02/11/2018 TRIAMCINOLONE ACET INJ NOS CPT-4: J3301 02/11/2018 CEFTRIAXONE SODIUM INJECTION CPT-4: J0696 02/01/2018 THER/PROPH/DIAG INJ SC/IM CPT-4: 97866 02/01/2018 CEFTRIAXONE SODIUM INJECTION CPT-4: J0696 01/30/2018 THER/PROPH/DIAG INJ SC/IM CPT-4: 65782 01/30/2018 ROUTINE VENIPUNCTURE CPT-4: 58862 12/10/2017 ASSAY OF FREE THYROXINE CPT-4: 09264 12/10/2017 ASSAY THYROID STIM HORMONE CPT-4: 15580 12/10/2017 COMPREHEN METABOLIC PANEL CPT-4: 16742 12/10/2017 COMPLETE CBC W/AUTO DIFF WBC CPT-4: 24982 12/10/2017 LIPID PANEL CPT-4: 69410 12/10/2017 A1C HPLC CPT-4: 46684 12/10/2017 CEFTRIAXONE SODIUM INJECTION CPT-4: J0696 12/10/2017 THER/PROPH/DIAG INJ SC/IM CPT-4: 52441 12/10/2017 CEFTRIAXONE SODIUM INJECTION CPT-4: J0696 12/07/2017 THER/PROPH/DIAG INJ SC/IM CPT-4: 51787 12/07/2017 DEXAMETHASONE SODIUM PHOS CPT-4: J1100 12/07/2017 THER/PROPH/DIAG INJ SC/IM CPT-4: 46119 12/07/2017 CEFTRIAXONE SODIUM INJECTION CPT-4: J0696 10/08/2017 THER/PROPH/DIAG INJ SC/IM CPT-4: 83533 10/08/2017 CEFTRIAXONE SODIUM INJECTION CPT-4: J0696 09/21/2017 THER/PROPH/DIAG INJ SC/IM CPT-4: 30446 09/21/2017 CEFTRIAXONE SODIUM INJECTION CPT-4: J0696 09/20/2017 THER/PROPH/DIAG INJ SC/IM CPT-4: 93994 09/20/2017 REMOVAL OF NAIL PLATE CPT-4: 59663 08/29/2017 THER/PROPH/DIAG INJ SC/IM CPT-4: 14852 08/29/2017 TRIAMCINOLONE ACET INJ NOS CPT-4: J3301 08/29/2017 CEFTRIAXONE SODIUM INJECTION CPT-4: J0696 08/29/2017 THER/PROPH/DIAG INJ SC/IM CPT-4: 12268 08/29/2017 DESTRUCT PREMALG LESION (Cryosurgery) CPT-4: 68874 ROUTINE VENIPUNCTURE CPT-4: 52901 06/27/2017 ASSAY OF FREE THYROXINE CPT-4: 15094 06/27/2017 ASSAY THYROID STIM HORMONE CPT-4: 17360 06/27/2017 COMPREHEN METABOLIC PANEL CPT-4: 32018 06/27/2017 COMPLETE CBC W/AUTO DIFF WBC CPT-4: 63719 06/27/2017 EXC TR-EXT B9+REECE 0.5 CM< CPT-4: 56959 01/24/2017 THER/PROPH/DIAG INJ SC/IM CPT-4: 88625 08/02/2016 DEXAMETHASONE SODIUM PHOS CPT-4: J1100 08/02/2016 DESTRUCT PREMALG LESION (Cryosurgery) CPT-4: 38888 EXC TR-EXT B9+REECE 0.5 CM< CPT-4: 10654 08/01/2016 AEROBIC WOUND CULTURE & STN CPT-4: 37240 07/06/2016 CEFTRIAXONE SODIUM INJECTION CPT-4: J0696 05/25/2016 THER/PROPH/DIAG INJ SC/IM CPT-4: 48146 05/25/2016 THER/PROPH/DIAG INJ SC/IM CPT-4: 83454 04/26/2016 DEXAMETHASONE SODIUM PHOS CPT-4: J1100 04/26/2016 CEFTRIAXONE SODIUM INJECTION CPT-4: J0696 04/26/2016 THER/PROPH/DIAG INJ SC/IM CPT-4: 26124 04/26/2016 THER/PROPH/DIAG INJ SC/IM CPT-4: 39293 02/09/2016 TRIAMCINOLONE ACET INJ NOS CPT-4: J3301 02/09/2016 URINALYSIS NONAUTO W/O SCOPE CPT-4: 40053 01/24/2016 URINE CULTURE/ COLONY COUNT CPT-4: 79550 01/24/2016 THER/PROPH/DIAG INJ SC/IM CPT-4: 35860 12/08/2015 TRIAMCINOLONE ACET INJ NOS CPT-4: J3301 12/08/2015 THER/PROPH/DIAG INJ SC/IM CPT-4: 99897 10/07/2015 TRIAMCINOLONE ACET INJ NOS CPT-4: J3301 10/07/2015 DESTRUCT PREMALG LESION (Cryosurgery) CPT-4: 92026 THER/PROPH/DIAG INJ SC/IM CPT-4: 06946 03/16/2015 METHYLPREDNISOLONE 40 MG INJ CPT-4: J1030 03/16/2015 DESTRUCT PREMALG LESION (Cryosurgery) CPT-4: 42184 THER/PROPH/DIAG INJ SC/IM CPT-4: 08974 09/11/2014 METHYLPREDNISOLONE 40 MG INJ CPT-4: J1030 09/11/2014 TRIAMCINOLONE ACET INJ NOS CPT-4: J3301 09/11/2014 CEFTRIAXONE SODIUM INJECTION CPT-4: J0696 09/11/2014 THER/PROPH/DIAG INJ SC/IM CPT-4: 72537 09/11/2014 ROUTINE VENIPUNCTURE CPT-4: 44818 08/27/2014 COMPREHEN METABOLIC PANEL CPT-4: 03697 08/27/2014 COMPLETE CBC W/AUTO DIFF WBC CPT-4: 75888 08/27/2014 LIPID PANEL CPT-4: 60364 08/27/2014 ROUTINE VENIPUNCTURE CPT-4: 18239 07/21/2014 ASSAY OF AMYLASE CPT-4: 35843 07/21/2014 ASSAY OF LIPASE CPT-4: 71971 07/21/2014 THER/PROPH/DIAG INJ SC/IM CPT-4: 07980 07/15/2014 TRIAMCINOLONE ACET INJ NOS CPT-4: J3301 07/15/2014 ROUTINE VENIPUNCTURE CPT-4: 15892 05/14/2014 ASSAY OF FREE THYROXINE CPT-4: 70979 05/14/2014 ASSAY THYROID STIM HORMONE CPT-4: 26114 05/14/2014 COMPREHEN METABOLIC PANEL CPT-4: 12650 05/14/2014 COMPLETE CBC W/AUTO DIFF WBC CPT-4: 20236 05/14/2014 LIPID PANEL CPT-4: 50717 05/14/2014 CEFTRIAXONE SODIUM INJECTION CPT-4: J0696 04/21/2014 THER/PROPH/DIAG INJ SC/IM CPT-4: 25538 04/21/2014 THER/PROPH/DIAG INJ SC/IM CPT-4: 46203 04/21/2014 TRIAMCINOLONE ACET INJ NOS CPT-4: J3301 04/21/2014 THER/PROPH/DIAG INJ SC/IM CPT-4: 75337 03/04/2014 METHYLPREDNISOLONE 40 MG INJ CPT-4: J1030 03/04/2014 TRIAMCINOLONE ACET INJ NOS CPT-4: J3301 03/04/2014 CEFTRIAXONE SODIUM INJECTION CPT-4: J0696 03/04/2014 THER/PROPH/DIAG INJ SC/IM CPT-4: 39853 03/04/2014 TDAP VACCINE 7 YRS/> IM CPT-4: 85970 02/27/2014 IMMUNIZATION ADMIN CPT-4: 34984 02/27/2014 DESTRUCT PREMALG LESION (Cryosurgery) CPT-4: 15456 DESTRUCT PREMALG LES 2-14 CPT-4: 89397 01/13/2014 THER/PROPH/DIAG INJ SC/IM CPT-4: 97639 10/21/2013 METHYLPREDNISOLONE 40 MG INJ CPT-4: J1030 10/21/2013 TRIAMCINOLONE ACET INJ NOS CPT-4: J3301 10/21/2013 CEFTRIAXONE SODIUM INJECTION CPT-4: J0696 08/27/2013 THER/PROPH/DIAG INJ SC/IM CPT-4: 75258 08/27/2013 THER/PROPH/DIAG INJ SC/IM CPT-4: 45927 08/27/2013 METHYLPREDNISOLONE 40 MG INJ CPT-4: J1030 08/27/2013 TRIAMCINOLONE ACET INJ NOS CPT-4: J3301 08/27/2013 THER/PROPH/DIAG INJ SC/IM CPT-4: 70399 06/23/2013 METHYLPREDNISOLONE 40 MG INJ CPT-4: J1030 06/23/2013 TRIAMCINOLONE ACET INJ NOS CPT-4: J3301 06/23/2013 THER/PROPH/DIAG INJ SC/IM CPT-4: 32237 05/26/2013 METHYLPREDNISOLONE 40 MG INJ CPT-4: J1030 05/26/2013 TRIAMCINOLONE ACET INJ NOS CPT-4: J3301 05/26/2013 ROUTINE VENIPUNCTURE CPT-4: 02521 03/05/2013 ASSAY OF FREE THYROXINE CPT-4: 84715 03/05/2013 ASSAY THYROID STIM HORMONE CPT-4: 07350 03/05/2013 COMPREHEN METABOLIC PANEL CPT-4: 50233 03/05/2013 COMPLETE CBC W/AUTO DIFF WBC CPT-4: 72136 03/05/2013 A1C GLYCOSYLATED HEMOGLOBIN TEST CPT-4: 18974 013 DRAIN/INJECT JOINT/BURSA CPT-4: 13284 12/04/2012 METHYLPREDNISOLONE 40 MG INJ CPT-4: J1030 12/04/2012 TRIAMCINOLONE ACET INJ NOS CPT-4: J3301 12/04/2012 CEFTRIAXONE SODIUM INJECTION CPT-4: J0696 11/21/2012 THER/PROPH/DIAG INJ SC/IM CPT-4: 51152 11/21/2012 THER/PROPH/DIAG INJ SC/IM CPT-4: 61489 10/14/2012 METHYLPREDNISOLONE 40 MG INJ CPT-4: J1030 10/14/2012 TRIAMCINOLONE ACET INJ NOS CPT-4: J3301 10/14/2012 URINALYSIS NONAUTO W/O SCOPE CPT-4: 72126 09/27/2012 ROUTINE VENIPUNCTURE CPT-4: 43835 09/25/2012 ASSAY OF FREE THYROXINE CPT-4: 73671 09/25/2012 ASSAY THYROID STIM HORMONE CPT-4: 59945 09/25/2012 COMPREHEN METABOLIC PANEL CPT-4: 05064 09/25/2012 COMPLETE CBC W/AUTO DIFF WBC CPT-4: 51190 09/25/2012 C-REACTIVE PROTEIN CPT-4: 96516 09/25/2012 THER/PROPH/DIAG INJ SC/IM CPT-4: 51196 08/29/2012 METHYLPREDNISOLONE 40 MG INJ CPT-4: J1030 08/29/2012 TRIAMCINOLONE ACET INJ NOS CPT-4: J3301 08/29/2012 DESTRUCT PREMALG LESION (Cryosurgery) CPT-4: 29809 THER/PROPH/DIAG INJ SC/IM CPT-4: 11073 05/06/2012 METHYLPREDNISOLONE 40 MG INJ CPT-4: J1030 05/06/2012 TRIAMCINOLONE ACET INJ NOS CPT-4: J3301 05/06/2012 VITAMIN B 12 FOLIC ACID CPT-4: 76902|70255 05/06/2012 RBC SED RATE AUTOMATED CPT-4: 14724 05/06/2012 ROUTINE VENIPUNCTURE CPT-4: 47425 05/06/2012 ASSAY OF FREE THYROXINE CPT-4: 90161 05/06/2012 ASSAY THYROID STIM HORMONE CPT-4: 27429 05/06/2012 COMPREHEN METABOLIC PANEL CPT-4: 52215 05/06/2012 COMPLETE CBC W/AUTO DIFF WBC CPT-4: 00013 05/06/2012 ASSAY OF BLOOD/URIC ACID CPT-4: 27420 05/06/2012 THER/PROPH/DIAG INJ SC/IM CPT-4: 93547 03/19/2012 KETOROLAC TROMETHAMINE INJ CPT-4: J1885 03/19/2012 KETOROLAC TROMETHAMINE INJ CPT-4: J1885 01/30/2012 THER/PROPH/DIAG INJ SC/IM CPT-4: 77184 01/30/2012 PROMETHAZINE HCL INJECTION CPT-4: J2550 01/30/2012 THER/PROPH/DIAG INJ SC/IM CPT-4: 65069 01/24/2012 METHYLPREDNISOLONE 40 MG INJ CPT-4: J1030 01/24/2012 TRIAMCINOLONE ACET INJ NOS CPT-4: J3301 01/24/2012 THER/PROPH/DIAG INJ SC/IM CPT-4: 35511 09/13/2011 KETOROLAC TROMETHAMINE INJ CPT-4: J1885 09/13/2011 THER/PROPH/DIAG INJ SC/IM CPT-4: 24574 09/13/2011 PROMETHAZINE HCL INJECTION CPT-4: J2550 09/13/2011 CEFTRIAXONE SODIUM INJECTION CPT-4: J0696 07/20/2011 THER/PROPH/DIAG INJ SC/IM CPT-4: 11145 07/20/2011 THER/PROPH/DIAG INJ SC/IM CPT-4: 41202 07/20/2011 METHYLPREDNISOLONE INJECTION CPT-4: J2930 07/20/2011 URINALYSIS NONAUTO W/O SCOPE CPT-4: 74892 05/09/2011 CEFTRIAXONE SODIUM INJECTION CPT-4: J0696 05/09/2011 THER/PROPH/DIAG INJ SC/IM CPT-4: 70350 05/09/2011 THER/PROPH/DIAG INJ SC/IM CPT-4: 17338 05/09/2011 PROMETHAZINE HCL INJECTION CPT-4: J2550 05/09/2011 HYDRATION IV INFUSION INIT CPT-4: 02510 05/09/2011 DESTRUCT PREMALG LESION (Cryosurgery) CPT-4: 89334 DESTRUCT PREMALG LES 2-14 CPT-4: 59986 07/19/2010 REMOVAL OF SKIN TAGS <W/15 CPT-4: 16442 05/30/2010 THER/PROPH/DIAG INJ SC/IM CPT-4: 19253 04/05/2010 CEFTRIAXONE SODIUM INJECTION CPT-4: J0696 04/05/2010 TRIAMCINOLONE ACET INJ NOS CPT-4: J3301 04/05/2010 METHYLPREDNISOLONE 40 MG INJ CPT-4: J1030 04/05/2010 THER/PROPH/DIAG INJ SC/IM CPT-4: 23991 04/05/2010 TRIAMCINOLONE ACET INJ NOS CPT-4: J3301 03/09/2010 METHYLPREDNISOLONE 40 MG INJ CPT-4: J1030 03/09/2010 THER/PROPH/DIAG INJ SC/IM CPT-4: 17007 03/09/2010 THER/PROPH/DIAG INJ SC/IM CPT-4: 07057 03/09/2010 CEFTRIAXONE SODIUM INJECTION CPT-4: J0696 03/09/2010 Vital Signs Date Vital 05/28/2019 Blood Pressure 1: 126/82 Code: 8480-6 BMI: 35.0 Code: 15654-2 Heart Rate 1: 88 bpm Height: 5'4" [...] 1: 128/90 Code: 8480-6 BMI: 37.2 Code: 62105-1 Heart Rate 1: 84 bpm Height: 5'4" Respiratory Rate: 20 bpm SpO2: 95% Tempera ture: 36.6 (C) / 97.8 (F) Weight: 217 lbs 08/27/2018 Blood Pressure 1: 128/88 Code: 8480-6 BMI: 38.3 Code: 71219-4 Heart Rate 1: 84 bpm Height: 5'4" [...] 1: 119/72 Code: 8480-6 BMI: 37.4 Code: 66096-3 Heart Rate 1: 82 bpm Height: 5'4" Respiratory Rate: 12 bpm SpO2: 94% Tempera ture: 35.2 (C) / 95.4 (F) Weight: 218 lbs 12/18/2017 Blood Pressure 1: 128/86 Code: 8480-6 BMI: 37.8 Code: 80845-2 Heart Rate 1: 84 bpm Height: 5'4" [...] 1: 128/82 Code: 8480-6 BMI: 35.5 Code: 08311-8 Heart Rate 1: 84 bpm Height: 5'4" [...] 1: 128/82 Code: 8480-6 BMI: 30.2 Code: 69871-3 Heart Rate 1: 80 bpm Height: 5'4" [...] 1: 128/86 Code: 8480-6 BMI: 32.8 Code: 74636-7 Heart Rate 1: 66 bpm Height: 5'4" Respiratory Rate: 18 bpm Temperature: 36 .3 (C) / 97.3 (F) Weight: 191 lbs 06/23/2013 Blood Pressure 1: 132/94 Code: 8480-6 BMI: 34.0 Code: 43444-4 Heart Rate 1: 84 bpm Height: 5'4" Respiratory Rate: 20 bpm Temperature: 36 .8 (C) / 98.2 (F) Weight: 198 lbs 05/26/2013 Blood Pressure 1: 114/80 Code: 8480-6 BMI: 35.0 Code: 54233-1 Heart Rate 1: 80 bpm Height: 5'4" Respiratory Rate: 20 bpm Temperature: 36 .4 (C) / 97.6 (F) Weight: 204 lbs 04/16/2013 Blood Pressure 1: 114/82 Code: 8480-6 BMI: 36.7 Code: 43575-7 Heart Rate 1: 84 bpm Height: 5'4" Respiratory Rate: 20 bpm Temperature: 36 .7 (C) / 98.0 (F) Weight: 214 lbs 03/05/2013 Blood Pressure 1: 136/90 Code: 8480-6 BMI: 37.1 Code: 38122-3 Heart Rate 1: 84 bpm Height: 5'4" [...] 1: 168/114 Code: 8480-6 BMI: 36.2 Code: 14225-2 Heart Rate 1: 104 bpm Height: 5'4" Respiratory Rate: 20 bpm Temperature: 36 .8 (C) / 98.2 (F) Weight: 211 lbs 11/22/2012 Blood Pressure 1: 128/90 Code: 8480-6 Heart Rate 1: 88 bpm Respiratory Rate: 20 bpm SpO2: 96% Temperature: 36.8 (C) / 98.2 (F) 11/21/2012 Blood Pressure 1: 146/100 Code: 8480-6 BMI: 35.7 Code: 13135-4 Heart Rate 1: 96 bpm Height: 5'4" [...] 1: 138/100 Code: 8480-6 BMI: 35.7 Code: 10779-4 Heart Rate 1: 96 bpm Height: 5'4" Respiratory Rate: 20 bpm Temperature: 36 .8 (C) / 98.2 (F) Weight: 208 lbs 05/06/2012 Blood Pressure 1: 154/102 Code: 8480-6 BMI: 34.7 Code: 92462-0 Heart Rate 1: 116 bpm Height: 5'4" Respiratory Rate: 20 bpm Temperature: 36 .8 (C) / 98.2 (F) Weight: 202 lbs 04/03/2012 Blood Pressure 1: 134/94 Code: 8480-6 BMI: 34.8 Code: 63082-4 Heart Rate 1: 108 bpm Height: 5'4" Respiratory Rate: 20 bpm Temperature: 36 .8 (C) / 98.2 (F) Weight: 203 lbs 03/19/2012 Blood Pressure 1: 148/106 Code: 8480-6 BMI: 35.0 Code: 50484-9 Heart Rate 1: 100 bpm Height: 5'4" Respiratory Rate: 20 bpm Temperature: 36 .6 (C) / 97.9 (F) Weight: 204 lbs 02/22/2012 Blood Pressure 1: 146/94 Code: 8480-6 He art Rate 1: 88 bpm 02/21/2012 Blood Pressure 1: 172/120 Code: 8480-6 B lood Pressure 2: 152/106 Code: 8480-6 Heart Rate 1: 116 bpm 02/20/2012 Blood Pressure 1: 160/100 Code: 8480-6 BMI: 32.0 Code: 76558-0 Heart Rate 1: 84 bpm Height: 5'7" Temperature: 36.5 (C) / 97.7 (F) Weight: 204 lbs 01/30/2012 Blood Pressure 1: 152/110 Code: 8480-6 BMI: 32.0 Code: 93497-8 Heart Rate 1: 116 bpm Height: 5'7" Respiratory Rate: 20 bpm Temperature: 37 .0 (C) / 98.6 (F) Weight: 204 lbs 01/24/2012 Blood Pressure 1: 146/100 Code: 8480-6 BMI: 32.0 Code: 99795-1 Heart Rate 1: 100 bpm Height: 5'7" Respiratory Rate: 20 bpm Temperature: 36 .7 (C) / 98.0 (F) Weight: 204 lbs 01/10/2012 Blood Pressure 1: 156/94 Code: 8480-6 BMI: 32.6 Code: 65332-1 Heart Rate 1: 72 bpm Height: 5'7" Respiratory Rate: 20 bpm Temperature: 36 .8 (C) / 98.2 (F) Weight: 208 lbs 12/11/2011 Blood Pressure 1: 146/100 Code: 8480-6 Heart Rat e 1: 116 bpm Height: 5'7" Respiratory Rate: 20 bpm Temperature: 36.9 (C) / 98.4 (F) We ight: 11/09/2011 Blood Pressure 1: 148/96 Code: 8480-6 BMI: 32.1 Code: 88482-5 Heart Rate 1: 116 bpm Height: 5'7" Respiratory Rate: 20 bpm Temperature: 36 .7 (C) / 98.0 (F) Weight: 205 lbs 09/13/2011 Blood Pressure 1: 126/88 Code: 8480-6 Heart Rate 1: 88 bpm Height: 5'7" Respiratory Rate: 20 bpm Temperature: 36.9 (C) / 98.4 (F) We ight: 08/31/2011 Blood Pressure 1: 118/82 Code: 8480-6 BMI: 32.0 Code: 78036-3 Heart Rate 1: 80 bpm Height: 5'7" Temperature: 36.4 (C) / 97.6 (F) Weight: 204 lbs 07/06/2011 Blood Pressure 1: 128/86 Code: 8480-6 BMI: 30.9 Code: 13189-3 Heart Rate 1: 92 bpm Height: 5'7" Respiratory Rate: 20 bpm Temperature: 36 .9 (C) / 98.4 (F) Weight: 197 lbs 06/06/2011 Blood Pressure 1: 112/74 Code: 8480-6 BMI: 31.0 Code: 82896-1 Heart Rate 1: 72 bpm Height: 5'7" [...] 1: 128/92 Code: 8480-6 BMI: 33.6 Code: 48330-9 Heart Rate 1: 104 bpm Height: 5'4" Temperature: 36.8 (C) / 98.3 (F) Weight: 196 lbs Functional Status No Functional Status data Reason For Visit Reason For Visit Effective Dates Notes follow up 05/28/2019 ER fwup follow up [...] Check-up Encounters Encounter Performer Location Codes Date ([id number]) NURSE/OUTPATIENT VISIT EST Diagnosis: Essential (primary) hypertension[ICD10: I10] Diagnosis: Cervicalgia[ICD10: M54.2] Diagnosis: Hyperglycemia, unspecified[ICD10: R73.9] Diagnosis: Mixed hyperlipidemia[ICD10: E78.2] María Elena APPIAH [facility] CPT-4: 36044 09/29/2019 ([id number]) OFFICE/OUTPATIENT VISIT EST Diagnosis: Essential (primary) hypertension[ICD10: I10] Diagnosis: Fall from bed, sequela[ICD10: W06.XXXS] María Elena APPIAH [facility] CPT-4: 70990 05/28/2019 ([id number]) NURSE/OUTPATIENT VISIT EST Diagnosis: Essential (primary) hypertension[ICD10: I10] María Elena APPIAH [facility] CPT-4: 72303 05/19/2019 ([id number]) OFFICE/OUTPATIENT VISIT EST Diagnosis: Essential (primary) hypertension[ICD10: I10] Diagnosis: Type 2 diabetes mellitus with hyperglycemia[ICD10: E11.65] Diagnosis: Intervertebral disc disorders with radiculopathy, 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] Diagnosis: Hormone replacement therapy[ICD10: Z79.890] María Elena Hicks evlyDAWN [facility] CPT-4: 41238 01/22/2019 ([id number]) OFFICE/OUTPATIENT VISIT EST Diagnosis: Essential (primary) hypertension[ICD10: I10] Diagnosis: Type 2 diabetes mellitus with hyperglycemia[ICD10: E11.65] María Elena APPIAH DO [facility] CPT-4: 94453 09/30/2018 ([id number]) OFFICE/OUTPATIENT VISIT EST Diagnosis: Pain in left elbow[ICD10: M25.522] Diagnosis: Acute stress reaction[ICD10: F43.0] Diagnosis: Primary insomnia[ICD10: F51.01] Diagnosis: Abnormal weight gain[ICD10: R63.5] María Elena APPIAH [facility] CPT-4: 87558 08/27/2018 ([id number]) OFFICE/OUTPATIENT VISIT EST Diagnosis: Acute recurrent sinusitis, unspecified[ICD10: J01.91] Diagnosis: Follicular disorder, unspecified[ICD10: L73.9] Diagnosis: Tinea corporis[ICD10: B35.4] María Elena APPIAH DO [facility] CPT-4: 03538 08/09/2018 ([id number]) OFFICE/OUTPATIENT VISIT EST Diagnosis: Tinea corporis[ICD10: B35.4] Diagnosis: Anxiety disorder, unspecified[ICD10: F41.9] Diagnosis: Menopausal and female climacteric states[ICD10: N95.1] María Elena APPIAH [facility] CPT-4: 87843 07/22/2018 ([id number]) NURSE/OUTPATIENT VISIT EST Diagnosis: Cellulitis of right toe[ICD10: L03.031] María Elena APPIAH [facility] CPT-4: 42863 06/19/2018 ([id number]) OFFICE/OUTPATIENT VISIT EST Diagnosis: Cellulitis of right toe[ICD10: L03.031] Kathleen APPIAH DO [facility] CPT-4: 64929 06/17/2018 ([id number]) OFFICE/OUTPATIENT VISIT EST Diagnosis: Migraine without aura, intractable, without status migrainosus[ICD10: G43.019] Diagnosis: Zoster without complications[ICD10: B02.9] Kathleen APPIAH [facility] CPT-4: 54109 05/16/2018 ([id number]) OFFICE/OUTPATIENT VISIT EST Diagnosis: Cellulitis of right lower limb[ICD10: L03.115] Kathleen APPIAH DO [facility] CPT-4: 16108 03/20/2018 ([id number]) OFFICE/OUTPATIENT VISIT EST Diagnosis: Cellulitis of right lower limb[ICD10: L03.115] Kathleen APPIAH DO [facility] CPT-4: 26261 03/18/2018 ([id number]) OFFICE/OUTPATIENT VISIT EST Diagnosis: Cellulitis of right lower limb[ICD10: L03.115] Kathleen APPIAH DO [facility] CPT-4: 12682 03/15/2018 ([id number]) OFFICE/OUTPATIENT VISIT EST Diagnosis: Acute sinusitis, unspecified[ICD10: J01.90] Kathleen APPIAH DO [facility] CPT-4: 68844 02/11/2018 ([id number]) NURSE/OUTPATIENT VISIT EST Diagnosis: Otitis media, unspecified, right ear[ICD10: H66.91] María Elena APPIAH DO [facility] CPT-4: 93440 02/01/2018 ([id number]) OFFICE/OUTPATIENT VISIT EST Diagnosis: Acute suppurative otitis media without spontaneous rupture of ear drum, left ear[ICD10: H66.002] Diagnosis: Abnormal weight gain[ICD10: R63.5] Diagnosis: Intervertebral disc disorders with radiculopathy, 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] Kathleen APPIAH DO [facility] CPT-4: 99 214 01/30/2018 ([id number]) PREV VISIT EST AGE 40-64 Diagnosis: Encounter for general adult medical examination without abnormal findings[ICD10: Z00.00] Diagnosis: Essential (primary) hypertension[ICD10: I10] Diagnosis: Mixed hyperlipidemia[ICD10: E78.2] Diagnosis: Type 2 diabetes mellitus with hyperglycemia[ICD10: E11.65] Diagnosis: 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] María Elena APPIAH DO [facility] CPT-4: 78522 12/18/2017 ([id number]) OFFICE/OUTPATIENT VISIT EST Diagnosis: Cellulitis of right toe[ICD10: L03.031] Diagnosis: Mixed hyperlipidemia[ICD10: E78.2] Diagnosis: Essential (primary) hypertension[ICD10: I10] Diagnosis: Hyperglycemia, unspecified[ICD10: R73.9] Diagnosis: Nontoxic goiter, 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] María Elena APPIAH DO [facility] CPT-4: 18071 12/10/2017 ([id number]) OFFICE/OUTPATIENT VISIT EST Diagnosis: Cellulitis of right toe[ICD10: L03.031] Diagnosis: Acute sinusitis, unspecified[ICD10: J01.90] Kathleen APPIAH DO [facility] CPT-4: 35500 12/07/2017 OFFICE/OUTPATIENT VISIT EST Diagnosis: Acute maxillary sinusitis, unspecified[ICD10: J01.00] Kathleen APPIAH DO [facility] CPT-4: 13990 10/08/2017 ([id number]) OFFICE/OUTPATIENT VISIT EST Diagnosis: Cellulitis of left toe[ICD10: L03.032] María Elena APPIAH [facility] CPT-4: 03591 09/21/2017 ([id number]) OFFICE/OUTPATIENT VISIT EST Diagnosis: Insomnia, unspecified[ICD10: G47.00] Diagnosis: Major depressive disorder, single episode, unspecified[ICD10: F32.9] Diagnosis: Anxiety disorder, unspecified[ICD10: F41.9] Diagnosis: Cellulitis of left toe[ICD10: L03.032] Diagnosis: Snoring[ICD10: R06.83] Kathleen APPIAH DO [facility] CPT-4: 76728 09/20/2017 ([id number]) OFFICE/OUTPATIENT VISIT EST Diagnosis: Cellulitis of left toe[ICD10: L03.032] María Elena APPIAH DO [facility] CPT-4: 90882 07/19/2017 OFFICE/OUTPATIENT VISIT EST Diagnosis: Chronic sinusitis, unspecified[ICD10: J32.9] Diagnosis: Generalized hyperhidrosis[ICD10: R61] Kathleen APPIAH [facility] CPT-4: 58440 06/27/2017 ([id number]) OFFICE/OUTPATIENT VISIT EST Diagnosis: Intervertebral disc disorders with radiculopathy, 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] Diagnosis: Primary insomnia[ICD10: F51.01] Diagnosis: Other fatigue[ICD10: R53.83] María Elena APPIAH [employer] [facility] CPT-4: 10650 04/10/2017 ([id number]) OFFICE/OUTPATIENT VISIT EST Diagnosis: Primary insomnia[ICD10: F51.01] Diagnosis: Localized edema[ICD10: R60.0] Diagnosis: 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] María Elena APPIAH DO [facility] CPT-4: 48813 12/13/2016 ([id number]) OFFICE/OUTPATIENT VISIT EST Diagnosis: Primary insomnia[ICD10: F51.01] Diagnosis: Cyanosis[ICD10: R23.0] María Elena Bazzi [employer] [facility] CPT-4: 40986 11/01/2016 ([id number]) PREV VISIT EST AGE 40-64 Diagnosis: Encounter for gynecological examination (general) (routine) without abnormal findings[ICD10: Z01.419] Diagnosis: Encounter for routine child health examination without abnormal findings[ICD10: Z00.129] María Elena APPIAH [employer] [facility] CPT-4: 23536 10/17/2016 ([id number]) OFFICE/OUTPATIENT VISIT EST Diagnosis: Other seasonal allergic rhinitis[ICD10: J30.2] María Elena APPIAH [employer] [facility] CPT-4: 69670 10/10/2016 ([id number]) OFFICE/OUTPATIENT VISIT EST Diagnosis: Pain in left arm[ICD10: M79.602] Diagnosis: Contact with and (suspected) exposure to potentially hazardous body fluids[ICD10: Z77.21] Diagnosis: 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, 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] Diagnosis: Unspecified open wound, right foot, sequela[ICD10: S91.301S] María Elena APPIAH [employer] [facility] CPT-4: 24876 09/19/2016 ([id number]) OFFICE/OUTPATIENT VISIT EST Diagnosis: Chronic sinusitis, unspecified[ICD10: J32.9] Diagnosis: Allergic rhinitis due to pollen[ICD10: J30.1] María Elena APPIAH DO [facility] CPT-4: 58163 08/24/2016 ([id number]) OFFICE/OUTPATIENT VISIT EST Diagnosis: Acute bronchitis, unspecified[ICD10: J20.9] María Elena APPIAH DO [facility] CPT-4: 68246 08/16/2016 ([id number]) OFFICE/OUTPATIENT VISIT EST Diagnosis: Otitis media, unspecified, right ear[ICD10: H66.91] Diagnosis: Acute bronchitis, unspecified[ICD10: J20.9] María Elena APPIAH [employer] [facility] CPT-4: 93795 08/10/2016 ([id number]) OFFICE/OUTPATIENT VISIT EST Diagnosis: Acute recurrent sinusitis, unspecified[ICD10: J01.91] Diagnosis: Allergic rhinitis due to pollen[ICD10: J30.1] María Elena APPIAH DO [facility] CPT-4: 14222 08/02/2016 ([id number]) OFFICE/OUTPATIENT VISIT EST Diagnosis: Pain in unspecified joint[ICD10: M25.50] María Elena APPIAH [employer] [facility] CPT-4: 85784 07/27/2016 OFFICE/OUTPATIENT VISIT EST Diagnosis: 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] Diagnosis: Acute recurrent sinusitis, unspecified[ICD10: J01.91] Diagnosis: Other fatigue[ICD10: R53.83] Diagnosis: Primary insomnia[ICD10: F51.01] Diagnosis: Pain in unspecified joint[ICD10: M25.50] María Elena APPIAH DO [facility] CPT-4: 75191 07/20/2016 ([id number]) OFFICE/OUTPATIENT VISIT EST Diagnosis: Blister (nonthermal), left great toe, initial encounter[ICD10: S90.422A] Loan Sánchez MARÍA ELENA APPIAH DO [facility] CPT-4: 37856 ([id number]) OFFICE/OUTPATIENT VISIT EST Diagnosis: Acute recurrent sinusitis, unspecified[ICD10: J01.91] María Elena APPIAH DO [facility] CPT-4: 71044 05/25/2016 ([id number]) OFFICE/OUTPATIENT VISIT EST Diagnosis: Acute sinusitis, unspecified[ICD10: J01.90] María Elena APPIAH DO [facility] CPT-4: 76494 04/26/2016 ([id number]) OFFICE/OUTPATIENT VISIT EST Diagnosis: Flushing[ICD10: R23.2] Diagnosis: Primary insomnia[ICD10: F51.01] María Elena APPIAH DO [facility] CPT-4: 09953 03/02/2016 ([id number]) OFFICE/OUTPATIENT VISIT EST Diagnosis: Other seasonal allergic rhinitis[ICD10: J30.2] Loan APPIAH [facility] CPT-4: 83150 02/09/2016 ([id number]) OFFICE/OUTPATIENT VISIT EST Diagnosis: Primary insomnia[ICD10: F51.01] Diagnosis: Urinary tract infection, site not specified[ICD10: N39.0] María Elena APPIAH DO [facility] CPT-4: 13378 01/24/2016 ([id number]) OFFICE/OUTPATIENT VISIT EST Diagnosis: Other specified disorders of Eustachian tube, bilateral[ICD10: H69.83] Diagnosis: Allergic rhinitis, unspecified[ICD10: J30.9] Loan APPIAH DO [facility] CPT-4: 30427 12/23/2015 ([id number]) OFFICE/OUTPATIENT VISIT EST Diagnosis: Acute recurrent sinusitis, unspecified[ICD10: J01.91] Diagnosis: 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] Diagnosis: Allergic rhinitis, unspecified[ICD10: J30.9] María Elena APPIAH DO [facility] CPT-4: 38927 12/08/2015 ([id number]) OFFICE/OUTPATIENT VISIT EST Diagnosis: Allergic rhinitis, unspecified[ICD10: J30.9] Diagnosis: Pain in unspecified joint[ICD10: M25.50] María Elena APPIAH DO [facility] CPT-4: 86736 10/07/2015 ([id number]) OFFICE/OUTPATIENT VISIT EST Diagnosis: Essential (primary) hypertension[ICD10: I10] María Elena APPIAH DO [facility] CPT-4: 59107 10/06/2015 OFFICE/OUTPATIENT VISIT EST Diagnosis: Localized enlarged lymph nodes[ICD10: R59.0] Diagnosis: Local infection of the skin and subcutaneous tissue, unspecified[ICD10: L08.9] June APPIAH DO [facility] CPT- 4: 65388 09/14/2015 ([id number]) OFFICE/OUTPATIENT VISIT EST Diagnosis: Essential (primary) hypertension[ICD10: I10] Diagnosis: Actinic keratosis[ICD10: L57.0] María Elena APPIAH DO [facility] CPT-4: 06566 09/07/2015 ([id number]) OFFICE/OUTPATIENT VISIT EST Diagnosis: Essential (primary) hypertension[ICD10: I10] Diagnosis: Acute stress reaction[ICD10: F43.0] María Elena APPIAH DO [facility] CPT-4: 37929 08/18/2015 ([id number]) OFFICE/OUTPATIENT VISIT EST Diagnosis: Essential (primary) hypertension[ICD10: I10] María Elena APPIAH DO [facility] CPT-4: 08386 07/07/2015 ([id number]) OFFICE/OUTPATIENT VISIT EST Diagnosis: Essential (primary) hypertension[ICD10: I10] María Elena APPIAH DO [facility] CPT-4: 40819 06/24/2015 ([id number]) OFFICE/OUTPATIENT VISIT EST Diagnosis: Essential (primary) hypertension[ICD10: I10] María Elena APPIAH DO [facility] CPT-4: 74414 06/21/2015 ([id number]) OFFICE/OUTPATIENT VISIT EST Diagnosis: Essential (primary) hypertension[ICD10: I10] Diagnosis: Mixed hyperlipidemia[ICD10: E78.2] Diagnosis: Acute stress reaction[ICD10: F43.0] Diagnosis: Primary insomnia[ICD10: F51.01] María Elena APPIAH DO [facility] CPT-4: 58579 06/16/2015 ([id number]) OFFICE/OUTPATIENT VISIT EST Diagnosis: INSOMNIA NOS[ICD9: 780.52] Diagnosis: HYPERTENSION[ICD9: 401.9] Diagnosis: Stress reaction[ICD9: 308.9] María Elena APPIAH DO [facility] CPT-4: 26455 06/02/2015 ([id number]) OFFICE/OUTPATIENT VISIT EST Diagnosis: HYPERTENSION[ICD9: 401.9] Diagnosis: Stress reaction[ICD9: 308.9] María Elena APPIAH DO [facility] CPT-4: 41665 05/20/2015 ([id number]) OFFICE/OUTPATIENT VISIT EST Diagnosis: Skin lesion[ICD9: 709.9] 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] María Elena APPIAH [facility] CPT-4: 01467 05/10/2015 ([id number]) OFFICE/OUTPATIENT VISIT EST Diagnosis: SINUSITIS, ACUTE[ICD9: 461.9] Diagnosis: ALLERGIC RHINITIS[ICD9: 477.9] Diagnosis: DERMATITIS NOS[ICD9: 692.9] María Elena REHMAN [facility] CPT-4: 06536 03/16/2015 OFFICE/OUTPATIENT VISIT EST Diagnosis: Otitis media[ICD9: 382.9] Diagnosis: SINUSITIS, ACUTE[ICD9: 461.9] June Flores MARÍA ELENA APPIAH [facility] CPT-4: 65240 09/11/2014 ([id number]) OFFICE/OUTPATIENT VISIT EST Diagnosis: HYPERLIPIDEMIA NEC/NOS[ICD9: 272.4] María Elena APPIAH [facility] CPT-4: 51597 08/31/2014 ([id number]) OFFICE/OUTPATIENT VISIT EST Diagnosis: - I - HYPERTENSION[ICD9: 401.9] Diagnosis: HYPERLIPIDEMIA NEC/NOS[ICD9: 272.4] María Elena APPIAH [facility] CPT-4: 57192 08/27/2014 ([id number]) OFFICE/OUTPATIENT VISIT EST Diagnosis: ABDOMINAL PAIN[ICD9: 789.00] Diagnosis: DYSPEPSIA[ICD9: 536.8] Diagnosis: Thoracic back pain[ICD9: 724.1] María Elena APPIAH DO [facility] CPT-4: 82390 07/21/2014 ([id number]) OFFICE/OUTPATIENT VISIT EST Diagnosis: ALLERGIC RHINITIS[ICD9: 477.9] María Elena APPIAH DO [facility] CPT-4: 88467 07/15/2014 ([id number]) OFFICE/OUTPATIENT VISIT EST Diagnosis: EDEMA[ICD9: 782.3] Diagnosis: Chronic insomnia[ICD9: 780.52] María Elena APPIAH DO [facility] CPT-4: 04774 05/18/2014 ([id number]) OFFICE/OUTPATIENT VISIT EST Diagnosis: Thyromegaly[ICD9: 240.9] Diagnosis: - I - HYPERTENSION[ICD9: 401.9] Diagnosis: ROUTINE MEDICAL EXAM[ICD9: V70.0] Diagnosis: EDEMA[ICD9: 782.3] María Elena APPIAH [facility] CPT-4: 43977 05/14/2014 OFFICE/OUTPATIENT VISIT EST Diagnosis: BRONCHITIS, ACUTE[ICD9: 466.0] Diagnosis: SINUSITIS, ACUTE[ICD9: 461.9] María Elena APPIAH DO [facility] CPT-4: 85214 04/21/2014 OFFICE/OUTPATIENT VISIT EST Diagnosis: SINUSITIS, ACUTE[ICD9: 461.9] June VanAlbertaelaere MARÍA ELENA APPIAH [facility] CPT-4: 09873 03/04/2014 ([id number]) OFFICE/OUTPATIENT VISIT EST Diagnosis: VACCINE FOR TDAP[ICD10: Z23] María Elena APPIAH DO [facility] CPT-4: 12507 02/27/2014 ([id number]) OFFICE/OUTPATIENT VISIT EST Diagnosis: Seborrheic keratoses, inflamed[ICD9: 702.11] Diagnosis: ACTINIC KERATOSIS[ICD9: 702.0] Diagnosis: INSOMNIA NOS[ICD9: 780.52] María Elena PANDYA [facility] CPT-4: 01173 01/13/2014 OFFICE/OUTPATIENT VISIT EST Diagnosis: EUSTACHIAN TUBE DYSFUNCTION[ICD9: 381.81] Diagnosis: ALLERGIC RHINITIS[ICD9: 477.9] Diagnosis: Serous otitis media[ICD9: 381.4] María Elena [facility] CPT-4: 61970 12/24/2013 ([id number]) OFFICE/OUTPATIENT VISIT EST Diagnosis: SINUSITIS, ACUTE[ICD9: 461.9] Diagnosis: ALLERGIC RHINITIS[ICD9: 477.9] Diagnosis: EUSTACHIAN TUBE DYSFUNCTION[ICD9: 381.81] María Elena APPIAH [facility] CPT-4: 79758 11/12/2013 ([id number]) OFFICE/OUTPATIENT VISIT EST Diagnosis: ALLERGIC RHINITIS[ICD9: 477.9] Diagnosis: SINUSITIS, ACUTE[ICD9: 461.9] María Elena [facility] CPT-4: 93862 10/21/2013 ([id number]) OFFICE/OUTPATIENT VISIT EST Diagnosis: ASYMPTOMATIC VARICOSE VEINS[ICD9: 454.9] Diagnosis: INSOMNIA NOS[ICD9: 780.52] María Elena [facility] CPT-4: 80317 09/22/2013 OFFICE/OUTPATIENT VISIT EST Diagnosis: SINUSITIS, ACUTE[ICD9: 461.9] June Washingtongurmeetfatimah MARÍA ELENA [facility] CPT-4: 27473 08/27/2013 ([id number]) OFFICE/OUTPATIENT VISIT EST Diagnosis: CEPHALGIA[ICD9: 784.0] Diagnosis: CEPHALGIA, TENSION[ICD9: 307.81] 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] María Elena APPIAH [facility] CPT-4: 96529 08/04/2013 ([id number]) OFFICE/OUTPATIENT VISIT EST Diagnosis: Cervicalgia[ICD9: 723.1] Diagnosis: SPASM OF MUSCLE[ICD9: 728.85] Diagnosis: CEPHALGIA, TENSION[ICD9: 307.81] María Elena APPIAH [facility] CPT-4: 37362 07/23/2013 ([id number]) OFFICE/OUTPATIENT VISIT EST Diagnosis: EUSTACHIAN TUBE DYSFUNCTION[ICD9: 381.81] Diagnosis: ALLERGIC RHINITIS[ICD9: 477.9] María Elena APPIAH [facility] CPT-4: 07730 06/23/2013 ([id number]) OFFICE/OUTPATIENT VISIT EST Diagnosis: ALLERGIC RHINITIS[ICD9: 477.9] Diagnosis: ACUTE SEROUS OTITIS MEDIA[ICD9: 381.01] Diagnosis: EUSTACHIAN TUBE DYSFUNCTION[ICD9: 381.81] María Elena APPIAH [facility] CPT-4: 93035 05/26/2013 ([id number]) OFFICE/OUTPATIENT VISIT EST Diagnosis: HYPERTENSION[ICD9: 401.9] Diagnosis: EDEMA[ICD9: 782.3] Diagnosis: Serous otitis media[ICD9: 381.4] María Elena APPIAH [facility] CPT-4: 07933 04/16/2013 ([id number]) OFFICE/OUTPATIENT VISIT EST Diagnosis: SINUSITIS, ACUTE[ICD9: 461.9] Diagnosis: ALLERGIC RHINITIS[ICD9: 477.9] Diagnosis: EDEMA[ICD9: 782.3] Diagnosis: Thyromegaly[ICD9: 240.9] Diagnosis: MALAISE AND FATIGUE[ICD9: 780.79] María Elena Seamusdawn Lopez Fabiola APPIAH [facility] CPT-4: 96366 03/05/2013 ([id number]) OFFICE/OUTPATIENT VISIT EST Diagnosis: PAIN, LOWER BACK[ICD9: 724.2] Diagnosis: SPASM OF MUSCLE[ICD9: 728.85] María Elena Seamusdawn MARÍA ELENA LucioJj TD [facility] CPT-4: 83541 12/23/2012 OFFICE/OUTPATIENT VISIT EST Diagnosis: Low back pain[ICD9: 724.2] Lashawn Hicks [facility]YN [facility] CPT-4: 99284 12/16/2012 ([id number]) OFFICE/OUTPATIENT VISIT EST Diagnosis: PAIN, LOWER BACK[ICD9: 724.2] Diagnosis: SCIATICA[ICD9: 724.3] Diagnosis: Lumbar herniated disc[ICD9: 722.10] María Elena ELLISTaran APPIAH DO [facility] CPT-4: 97929 12/09/2012 ([id number]) OFFICE/OUTPATIENT VISIT EST Diagnosis: PAIN, LOWER BACK[ICD9: 724.2] Diagnosis: SCIATICA[ICD9: 724.3] Diagnosis: LUMBAR DISC DISPLACEMENT[ICD9: 722.10] María Elena ISAAC TANIA APPIAH DO [facility] CPT-4: 35155 12/04/2012 OFFICE/OUTPATIENT VISIT EST Diagnosis: Pneumonia[ICD9: 486] Mary Tillman MARÍA ELENA APPIAH DO [facility] CPT-4: 38594 11/22/2012 ([id number]) OFFICE/OUTPATIENT VISIT EST Diagnosis: PNEUMONIA, ORGANISM[ICD9: 486] Diagnosis: Exacerbation of RAD (reactive airway disease)[ICD9: 493.92] María Elena Seamusdawn MARÍA ELENA Fabiola APPIAH DO [facility] CPT-4: 07764 11/21/2012 OFFICE/OUTPATIENT VISIT EST Diagnosis: HYPERTENSION[ICD9: 401.9] Diagnosis: Cephalgia[ICD9: 784.0] Lashawn MONTEROQUELINE Fabiola APPIAH DO [facility] CPT-4: 41836 10/29/2012 ([id number]) OFFICE/OUTPATIENT VISIT EST Diagnosis: MALAISE AND FATIGUE[ICD9: 780.79] Diagnosis: ARTHRALGIA-MULTIPLE SITES[ICD9: 719.49] María Elena MONTERO APARNAALCIDES Fabiola APPIAH DO [facility] CPT-4: 95361 10/14/2012 ([id number]) OFFICE/OUTPATIENT VISIT EST Diagnosis: URINARY FREQUENCY[ICD9: 788.41] María Elena MONTEROQUELINE Fabiola APPIAH DO [facility] CPT-4: 92783 09/27/2012 ([id number]) OFFICE/OUTPATIENT VISIT EST Diagnosis: MALAISE AND FATIGUE[ICD9: 780.79] Diagnosis: ARTHRALGIA-MULTIPLE SITES[ICD9: 719.49] María Elena MONTERO APARNAALCIDES Fabiola APPIAH DO [facility] CPT-4: 52839 09/25/2012 ([id number]) OFFICE/OUTPATIENT VISIT EST Diagnosis: SINUSITIS, ACUTE[ICD9: 461.9] Diagnosis: EUSTACHIAN TUBE DYSFUNCTION[ICD9: 381.81] María Elena APPIAH [facility] CPT-4: 91412 08/29/2012 OFFICE/OUTPATIENT VISIT EST Diagnosis: ACTINIC KERATOSIS[ICD9: 702.0] Diagnosis: Inflamed seborrheic keratosis[ICD9: 702.11] Diagnosis: Skin cancer of face[ICD9: 173.31] Diagnosis: HYPERTENSION[ICD9: 401.9] María Elena SEYMOUR [facility] CPT-4: 99080 08/12/2012 ([id number]) OFFICE/OUTPATIENT VISIT EST Diagnosis: ARTHRALGIA-MULTIPLE SITES[ICD9: 719.49] Diagnosis: GOUT[ICD9: 274.9] Diagnosis: HYPERTENSION[ICD9: 401.9] Diagnosis: Tachycardia[ICD9: 785.0] María Elena ValdesJj [facility] CPT-4: 99226 05/06/2012 ([id number]) OFFICE/OUTPATIENT VISIT EST Diagnosis: INSOMNIA NOS[ICD9: 780.52] María Elena ValdesJj KRISTYN [facility] CPT-4: 35960 04/03/2012 ([id number]) OFFICE/OUTPATIENT VISIT EST Diagnosis: INSOMNIA NOS[ICD9: 780.52] Diagnosis: HYPERTENSION[ICD9: 401.9] Diagnosis: MIGRAINE NOS/NOT INTRCBL[ICD9: 346.90] María Elena Appiah MARLIN MARIN LucioJj TD [facility] CPT-4: 75689 03/19/2012 ([id number]) OFFICE/OUTPATIENT VISIT EST Diagnosis: CELLULITIS[ICD9: 682.9] Diagnosis: Ankle pain[ICD9: 719.47] Diagnosis: HYPERTENSION[ICD9: 401.9] María Elena ValdesJj SEAMUS SEYMOUR [facility] CPT-4: 50961 02/20/2012 ([id number]) OFFICE/OUTPATIENT VISIT EST Diagnosis: MIGRAINE NOS/NOT INTRCBL[ICD9: 346.90] Diagnosis: Vomiting[ICD9: 787.03] María Elena Oredawn Hicks SEAMUSGALINA Rose Mary [facility] CPT-4: 18772 01/30/2012 ([id number]) OFFICE/OUTPATIENT VISIT EST Diagnosis: EDEMA[ICD9: 782.3] Diagnosis: HYPERTENSION[ICD9: 401.9] Diagnosis: ALLERGIC RHINITIS[ICD9: 477.9] Diagnosis: ARTHRALGIA-MULTIPLE SITES[ICD9: 719.49] María Elena Hicks SEAMUSMINDIVICTORINO [facility] CPT-4: 22966 01/24/2012 ([id number]) OFFICE/OUTPATIENT VISIT EST Diagnosis: SPASM OF MUSCLE[ICD9: 728.85] Diagnosis: Thoracic back pain[ICD9: 724.1] Diagnosis: Cervical pain[ICD9: 723.1] María Elena Hicks KRISTYN MUMTAZ [facility] CPT-4: 68381 01/10/2012 OFFICE/OUTPATIENT VISIT EST Diagnosis: PAIN, LOWER BACK[ICD9: 724.2] Diagnosis: LUMBAR DISC DISPLACEMENT[ICD9: 722.10] María Elena MARIN LucioJj TD [facility] CPT-4: 33409 12/11/2011 OFFICE/OUTPATIENT VISIT EST Diagnosis: MIGRAINE NOS/NOT INTRCBL[ICD9: 346.90] Diagnosis: SINUSITIS, ACUTE[ICD9: 461.9] María Elena Hicks TD [facility] CPT-4: 10905 11/09/2011 OFFICE/OUTPATIENT VISIT EST Diagnosis: MIGRAINE NOS/NOT INTRCBL[ICD9: 346.90] Diagnosis: LYMPHADENOPATHY[ICD9: 785.6] María Elena Hicks SEAMUSMINDIVICTORINO [facility] CPT-4: 07792 09/13/2011 OFFICE/OUTPATIENT VISIT EST Diagnosis: MALAISE AND FATIGUE[ICD9: 780.79] Diagnosis: ARTHRALGIA-MULTIPLE SITES[ICD9: 719.49] María Elena Hicks TD [facility] CPT-4: 05098 08/31/2011 OFFICE/OUTPATIENT VISIT EST Diagnosis: SINUSITIS, ACUTE[ICD9: 461.9] María Elena Hicks SEAMUSMINDIVICTORINO [facility] CPT-4: 40616 07/20/2011 OFFICE/OUTPATIENT VISIT EST Diagnosis: HYPERTENSION[ICD9: 401.9] Diagnosis: PAIN, LOWER BACK[ICD9: 724.2] Diagnosis: SPASM OF MUSCLE[ICD9: 728.85] María Elena APPIAH DO [facility] CPT-4: 53014 07/06/2011 OFFICE/OUTPATIENT VISIT EST Diagnosis: MIGRAINE NOS/NOT INTRCBL[ICD9: 346.90] Diagnosis: HYPERTENSION[ICD9: 401.9] María Elena MOJICAR DO [facility] CPT-4: 29469 05/22/2011 OFFICE/OUTPATIENT VISIT EST Diagnosis: SINUSITIS, ACUTE[ICD9: 461.9] Diagnosis: MIGRAINE NOS/NOT INTRCBL[ICD9: 346.90] Diagnosis: Dehydration[ICD9: 276.51] Diagnosis: Vomiting[ICD9: 787.03] María Elena Bazzi DO [facility] CPT-4: 79409 05/09/2011 ([id number]) OFFICE/OUTPATIENT VISIT EST María Elena MARIN SJj ORENDER DO [facility] CPT-4: 46817 02/14/2011 ([id number]) OFFICE/OUTPATIENT VISIT EST María Elena ISAAC UJARED SJj ORENDER DO [facility] CPT-4: 51569 02/03/2011 ([id number]) OFFICE/OUTPATIENT VISIT EST María Elena ISAAC UJARED SJj ORENDER DO [facility] CPT-4: 35433 01/31/2011 ([id number]) OFFICE/OUTPATIENT VISIT EST María Elena ISAAC UJARED SJj ORENDER DO [facility] CPT-4: 75258 01/25/2011 ([id number]) OFFICE/OUTPATIENT VISIT EST María Elena ISAAC UJARED SJj ORENDER DO [facility] CPT-4: 18129 01/18/2011 ([id number]) OFFICE/OUTPATIENT VISIT EST María Elena ISAAC UJARED SJj ORENDER DO [facility] CPT-4: 27489 11/29/2010 ([id number]) OFFICE/OUTPATIENT VISIT, EST María Elena Waymindivictorino BRAUNALCIDES Fabiola WAYNDER DO [facility] CPT-4: 13474 10/10/2010 ([id number]) OFFICE/OUTPATIENT VISIT, EST María Elena [facility] CPT-4: 79932 06/07/2010 ([id number]) OFFICE/OUTPATIENT VISIT, EST María Elena [facility] CPT-4: 93866 04/27/2010 ([id number]) OFFICE/OUTPATIENT VISIT, EST María Elena [facility] CPT-4: 28851 04/05/2010 ([id number]) OFFICE/OUTPATIENT VISIT, EST María Elena [facility] CPT-4: 03423 03/09/2010 ([id number]) OFFICE/OUTPATIENT VISIT, EST María Elena [facility] CPT-4: 62170 03/03/2010 ([id number]) OFFICE/OUTPATIENT VISIT, EST María Elena [facility] CPT-4: 40538 01/17/2010 ([id number]) PREV VISIT, EST, AGE 40-64 María Elena [facility] CPT-4: 01612 12/27/2009 Plan of Care Planned Activity Notes Codes Status Date Appointment: María Elena Appiahtel: [address] [place] [address] [place] Won't have the new insurance till [...] : W06.XXXS 05/28/2019 Appointment: María Elena Appiahtel: [address] [place], [place] [phone] [place] FOLLOW UP 05/28/2019 Appointment: María Elena Appiahtel: [address] [address] [place] BP CHECK 05/19/2019 Visit Diagnosis Plan: [...] 01/22/2019 Appointment: María Elena Appiah WPtel: [address] [place], [place] [phone] [place] FOLLOW UP 01/22/2019 Patient Education: estradiol- [employer] Coupon [id number] [email or web address]/Digital Caddies/resources/getResource/61/424u437s-[email or web address] Completed 01/22/2019 Appointment: María Elena Appiah WPtel: [address] [place], [place] [phone] [place] CANCELED 01/20/2019 Appointment: María Elena Appiah WPtel: [address] [place] [address] [place] LM NO SHOW 01/06/2019 Appointment: María Elena Appiah WPtel: [address] [place], [place] [phone] [place] CANCELED 10/17/2018 Appointment: María Elena Appiah WPtel: [address] [place], [place] [phone] [place] BP CHECK 10/09/2018 Visit Diagnosis Plan: [...] I10 09/30/2018 Appointment: María Elena Appiah WPtel: [address] [place] [address] [place] FOLLOW UP 09/30/2018 Visit Diagnosis Plan: [...] F51.01 08/27/2018 Appointment: María Elena Appiah WPtel: [address] [place] [address] ACUTE ILLNESS 08/27/2018 Appointment: María Elena Appiah WPtel: [address] [place] [address] [place] Patient stated she went out to [...] 08/09/2018 Appointment: María Elena Appiah WPtel: [address] [place] [address] [place] ACUTE ILLNESS 08/09/2018 Appointment: María Elena Appiah WPtel: [address] [place] [address] NO SHOW 08/08/2018 Visit Diagnosis Plan: Anxiety [...] B35.4 07/22/2018 Appointment: María Elena Appiah WPtel: [address] [place] [address] ACUTE ILLNESS 07/22/2018 Appointment: María Elena Appiah WPtel: [address] [place] [address] [place] INJECTION 06/19/2018 Patient Education: Patient Medication [...] : L03.031 06/17/2018 Appointment: Kathleen Zuniga [address] [place] [address] ACUTE ILLNESS 06/17/2018 Patient Education: Patient Medication [...] ICD-10 : B02.9 05/16/2018 Appointment: Kathleen Zuniga [address] [place] [address] ACUTE ILLNESS 05/16/2018 Patient Education: Patient Medication [...] : L03.115 03/20/2018 Appointment: Kathleen Zuniga [address] [place], [place] [address] FOLLOW UP 03/20/2018 Patient Education: Patient Medication [...] ICD-10 : L03.115 03/18/2018 Appointment: Kathleen Zuniga [address] [place], [place] [phone] FOLLOW UP 03/18/2018 Patient Education: Patient Medication [...] ICD-10 : L03.115 03/15/2018 Appointment: Kathleen Zuniga [address] [place] [address] ACUTE ILLNESS 03/15/2018 Patient Education: Patient Medication [...] ICD-10 : J01.90 02/11/2018 Appointment: Kathleen Zuniga [address] [place] [address] ACUTE ILLNESS 02/11/2018 Patient Education: Patient Medication Summary Completed 02/11/2018 Appointment: María Elena Appiah WPtel: [phone] [id number] INJECTION 02/01/2018 Patient Education: Patient Medication Summary [...] : M51.16 01/30/2018 Appointment: Kathleen Zuniga [address] [place] [address] ACUTE ILLNESS 01/30/2018 Patient Education: Patient Medication [...] E11.65 12/18/2017 Appointment: María Elena Appiah WPtel: [address] [place] [address] Annual Well Visit 12/18/2017 Patient Education: Patient Medication Summary Completed 12/18/2017 Care Plan: Referral Order SNOMED-CT : [id number] Pending 12/18/2017 Appointment: María Elena Appiah WPtel: [address] [place] [address] INJECTION 12/10/2017 Patient Education: Patient Medication Summary [...] : L03.031 12/07/2017 Appointment: Kathleen Zuniga [address] [place] [address] ACUTE ILLNESS 12/07/2017 Patient Education: Patient Medication [...] ICD-10 : J01.00 10/08/2017 Appointment: Kathleen Zuniga [address] [place] [address] ACUTE ILLNESS 10/08/2017 Patient Education: Patient Medication Summary Completed 10/08/2017 Appointment: María Elena Appiah WPtel: [phone] [facility] [place] INJECTION 09/21/2017 Patient Education: Patient [...] : R06.83 09/20/2017 App[facility]ment: [facility] [facility] 09/20/2017 Patient Education: Patient [...] : L60.0 08/29/2017 Appointment: [facility] [facility] 08/29/2017 Patient Education: Patient Medication Summary Completed 08/29/2017 Visit Diagnosis Plan: Actinic keratosis Discussion: Cr yotherapy as above ICD-9 : 702.0 ICD-10 : L57.0 08/01/2017 Appointment: María Elena Appiah [facility]Ptel[facility] [phone] [facility] [facility] SURG[facility] 08/01/2017 Patient Education: Patient Medication Summary Completed 08/01/2017 Appointment: María Elena Appiah WPtel: [address] [place], [place] [phone] PATIENT THOUGHT APPOINTMENT WAS TOMORROW 07/26/17 CALLED 15 MINUTES BEFORE APPT TO SAY SHE DIDN'T HAVE ANYONE TO COVER HER BUSINESS AND WOULD NOT MAKE IT NO SHOW 07/25/2017 Visit Diagnosis Plan: Cellulitis of left toe Discussio n: Clindamycin and notify if worsening or persistis ICD-9 : 681.10 ICD-10 : L03.032 07/19/2017 Appointment: María Elena Appiah WPtel: [address] [place], [place] [phone] MEDICATION REVIEW 07/19/2017 Patient Education: Patient Medication Summary Completed 07/19/2017 Appointment: María Elena Appiah WPtel: [facility] [place] CANCELED 07/04/2017 Visit Diagnosis Plan: Generalized hyperhidrosis Discus ian: CBC, CMP, TSH, free T4 ordered to assess. will review labs. ICD-9 : 780.8 ICD-10 : R61 06/27/2017 Visit Diagnosis Plan: Chronic sinusitis, unspecified D iscussion: Referral sent to dr. albarado in [place] per patient request. patient has been treated multiple times for sinus infections with no recovery. patient was seen by dr sanchez in the past with no interventions. patient has deviated septum which may be affecting her sinuses. 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, including hip Discussion: Shave removal of above lesio n--sent to pathology ICD-9 : 216.7 ICD-10 : D23.72 01/24/2017 Appointment: María Elena Appiah WPtel: [address] [place], [place] [phone] 01/23 confirmed ~ OFFICE SURGERY 01/24/2017 Patient Education: Patient Medication Summary Completed 01/24/2017 Appointment: Loan Sánchez [address] [place] [address] 01/09 rescheduled~sl RESCHEDULED 01/15/2017 Visit Diagnosis Plan: [...] 12/13/2016 Appointment: María Elena Appiah WPtel: [address] [place], [place] [phone] 12/12 confirmed ~sl MEDICATION REVIEW 12/13/2016 Patient Education: Patient Medication Summary Completed 12/13/2016 Appointment: María Elena Appiah WPtel: [address] [place], [place] [phone] [place] rescheduled for 12/13/16 at 11am RESCHEDULED 0 12/06/2016 Appointment: María Elena Appiah WPtel: [phone] [facility] [place] CANCELED 11/23/2016 Patient Education: Patient Medication [...] F51.01 11/01/2016 Appointment: María Elena Appiah WPtel: [address] [place], [place] [phone] 10/31 lm `sl 11/01 lm`sl MEDICATION REVIEW 017 Patient Education: Patient Medication Summary Completed 11/01/2016 Referral: Canelo Overton WPtel: [phone] [id number] [place] Referral Initiated 10/30/2016 Visit Diagnosis Plan: [...] Z01.419 10/17/2016 Appointment: María Elena Appiah WPtel: [address] [place], [place] [phone] 10/16 confirmed ~sl PAP 10/17/2016 Patient Education: Patient Medication Summary Completed 10/17/2016 Care Plan: MAMMOGRAM SCREENING LOINC : 2 6347-5 Pending 10/17/2016 Visit Diagnosis Plan: Other seasonal allergic rhinitis Discussion: Decadron/Garamycin Nasal Viola Mix Too soon for steroid Retry zyrtec 10mg daily ICD-9 : 477.9 ICD-10 : J30.2 10/10/2016 Appointment: María Elena Appiah WPtel: [address] [place], [place] [phone] FOLLOW UP 10/10/2016 Patient Education: Patient Medication Summary Completed 10/10/2016 Appointment: María Elena Appiah WPtel: [address] [place], [place] [phone] 10/02 reschedule `sl RESCHEDULED 10/02/2016 Visit Plan: See surgery for removal of n ew left arm lesion and right foot lesion Lyrica to use next month for left arm paresthesias Continue current meds Discussed sunscreen/sunblock combo 09/19/2016 Appointment: María Elena Appiah WPtel: [address] [place], [place] [phone] 09/18 confirmed ~sl FOLLOW UP 09/19/2016 Patient Education: Patient Medication Summary Completed 09/19/2016 Patient Education: Patient Medication Summary Completed 09/18/2016 Care Plan: MAMMOGRAM BOTH BREASTS LOINC : 59341-2 Pending 09/18/2016 Visit Plan: Discussed that needs [...] sinuses 08/24/2016 Appointment: María Elena Appiah WPtel: [address] [place], [place] [phone] ACUTE ILLNESS 08/24/2016 Patient Education: Patient Medication Summary Completed 08/24/2016 Patient Education: Patient Medication Summary Completed 08/23/2016 Care Plan: MAMMOGRAM SCREENING LOINC : 2 6347-5 Pending 08/23/2016 Visit Plan: Finish doxycycline Add Breo 100/25 1 p BID for 2 weeks If not improving within next 2 days will get CXR 08/16/2016 Appointment: María Elena Appiah WPtel: [address] [place] [address] ACUTE ILLNESS 08/16/2016 Patient Education: Patient Medication Summary Completed 08/16/2016 Visit Plan: Supportive care. Rest, Fluid s, Tylenol/Motrin prn fever or bodyaches. Notify if worsening symptoms. Doxycyline and Prednisone 08/10/2016 Appointment: María Elena Appiah WPtel: [address] [place] [address] 08/09 lm`sl....confirmed-sp FOLLOW UP 09/2015 Patient Education: Patient Medication Summary Completed 08/10/2016 Visit Plan: Saline nasal flushes prn. Ty lenol/Motrin prn headache. Notify if persists/symptoms worsening. Dexamethasone 8mg IM today May use coricedan and mucinex 08/02/2016 Appointment: María Elena Appiah WPtel: [address] [place] [address] ACUTE ILLNESS 08/02/2016 Patient Education: Patient Medication Summary Completed 08/02/2016 Visit Plan: Cryotherapy as above and lef t forearm lesion removal as above with 5-0 punch biopsy and sent to path Return in 10 days for suture removal 08/01/2016 Appointment: María Elena Appiahtel: [address] [place] [address] 07/31 confirmed`~sl OFFICE SURGERY 08/01/2016 Patient Education: Patient Medication Summary Completed 08/01/2016 Visit Plan: Stop clindamycin Check CBC, CMP, ESR now/STAT 07/27/2016 Appointment: María Elena Appiah WPtel: [address] [place] [address] ACUTE ILLNESS 07/27/2016 Patient Education: Patient Medication Summary Completed 07/27/2016 Visit Plan: Update lab and check ABIs to start with Will likely need cardiology evaluation to rule out PVD Clindamycin for 10 days Daily yogurt or probiotic Will return for removal of left arm lesions 07/20/2016 Appointment: María Elena Appiah WPtel: [address] [place] [address] ACUTE ILLNESS 07/20/2016 Patient Education: Patient Medication Summary Completed 07/20/2016 Patient Education: Patient Medication Summary Completed 07/20/2016 Care Plan: MAMMOGRAM BOTH BREASTS LOINC : 41226-5 Pending 07/20/2016 Care Plan: US EXAM CHEST LOINC : 85459-9 Pending 07/20/2016 Visit Plan: Wound culture collected from left great toe Appearance is somewhat staph like Rx as above Wound cleanser and skin care reviewed May need to add oral antibiotic if sores do not heal or continue to reoccur 07/06/2016 Appointment: Loan Sánchez [address] [place] [address] ACUTE ILLNESS 07/06/2016 Patient Education: Patient Medication Summary Completed 07/06/2016 Appointment: María Elena Appiah WPtel: [address] [place] [address] US INJECTION 05/25/2016 Patient Education: Patient Medication Summary Completed 05/25/2016 Visit Plan: Saline nasal flushes prn. Ty lenol/Motrin prn headache. Notify if persists/symptoms worsening. Dexamethasone and Rocephin given 04/26/2016 Appointment: María Elena Appiah WPtel: [address] [place] [address] ACUTE ILLNESS 04/26/2016 Patient Education: Patient Medication Summary Completed 04/26/2016 Visit Plan: Check CBC, CMP, TSH, FreeT4, HbA1C, estradiol, lipids in AM 03/02/2016 Appointment: María Elena Appiah WPtel: [address] [place] [address] 03/01 lm~sl ACUTE ILLNESS 03/02/2016 Patient Education: Patient Medication Summary Completed 03/02/2016 Visit Plan: Exam is nearly normal Needs to be taking daily antihistamine Would prefer to use oral steroids instead of shot but patient insist that oral steroids cause horrible headaches for her Will given kenalog IM instead 02/09/2016 Appointment: Loan Sánchez [address] [place] [address] ACUTE ILLNESS 02/09/2016 Patient Education: Patient Medication Summary Completed 02/09/2016 Visit Plan: Culture urine Macrobid DC xa nax Trial of Ativan 1mg q HS 01/24/2016 Appointment: María Elena Appiah WPtel: [address] [place] [address] ACUTE ILLNESS 01/24/2016 Patient Education: Patient Medication Summary Completed 01/24/2016 Visit Plan: No steroid or rocephin injec tion warranted Can have oral prednisone Continue current home regimen Needs to follow up with Dr Sanchez if problems persist 12/23/2015 Appointment: Loan Sánchez [address] [place] [address] ACUTE ILLNESS 12/23/2015 Patient Education: Patient Medication Summary Completed 12/23/2015 Visit Plan: Saline nasal flushes prn. Ty lenol/Motrin prn headache. Notify if persists/symptoms worsening. Kenalog 40mg IM today 12/08/2015 Appointment: María Elena Appiah WPtel: [address] [place] [address] 12/06 confirmed~sl ACUTE ILLNESS 12/08/2015 Patient Education: Patient Medication Summary Completed 12/08/2015 Appointment: María Elena Appiah WPtel: [address] [place] [address] ACUTE ILLNESS 11/18/2015 Patient Education: Patient Medication Summary Completed 10/11/2015 Appointment: María Elena Appiah WPtel: [address] [place] [address] [place] INJECTION 10/07/2015 Patient Education: Patient Medication Summary Completed 10/07/2015 Visit Plan: Check renal arterial doppler s and ECHO Change amlodopine to lotrel 5/20mg q HS Will need stress test as well Check CMP, uric acid, ESR 10/06/2015 Appointment: María Elena Appiah WPtel: [address] [place], [place] [phone] ACUTE ILLNESS 10/06/2015 Patient Education: Patient Medication Summary Completed 10/06/2015 Patient Education: [facility] - Saving AutoInj - Amlodipine Besylate - 18-64 - Dynamic Portal ID Completed 10/06/2015 Appointment: María Elena Appiah WPtel: [address] [place] [address] [place] FOLLOW UP 09/22/2015 Visit Plan: Cephalexin 500 mg PO bid Mery ly topical Mupirocin to lesions on left lateral neck and face Follow-up in one week. Sooner if symptoms worsen 09/14/2015 Appointment: June Flores WPtel: [address] [place] [address] ACUTE ILLNESS 09/14/2015 Patient Education: Patient Medication Summary Completed 09/14/2015 Visit Plan: Change bystolic to bedtime d osing and amlodopine to morning dosing Cryotherapy as above to AKs 09/07/2015 Appointment: María Elena Appiah WPtel: [address] [place], [place] [phone] 09/06 appointment made and confirmed ~sl FOLLOW UP 09/07/2015 Patient Education: Patient Medication Summary Completed 09/07/2015 Visit Plan: Increase bystolic back to 20 mg daily but will split and take 10mg in AM and 10mg in PM Stress Reducers 08/18/2015 Appointment: María Elena Appiah WPtel: [address] [place], [place] [phone] 08/17/15 appt confirmed cn ACUTE ILLNESS 08/18 Patient Education: Patient Medication Summary Completed 08/18/2015 Appointment: María Elena Appiah WPtel: [address] [place] [address] [place] BP CHECK 07/07/2015 Patient Education: Patient Medication Summary Completed 07/07/2015 Appointment: María Elena Appiah WPtel: [address] [place] [address] BP CHECK 06/24/2015 Patient Education: Patient Medication Summary Completed 06/24/2015 Appointment: María Elena Appiah WPtel: [address] [place] [address] BP CHECK 06/21/2015 Patient Education: Patient Medication Summary Completed 06/21/2015 Visit Plan: Lab discussed Continue curre nt meds and lifestyle modification Recheck lab in 6mos 06/16/2015 Appointment: María Elena Appiah WPtel: [address] [place] [address] 06/15 [facility] FOLLOW UP 06/16/2015 Patient Education: Patient Medication Summary Completed 06/16/2015 Patient Education: Patient Medication Summary Completed 06/15/2015 Visit Plan: Increase cymbalta to 60mg q HS Keep clonidine at current dose Recheck 2weeks Change xanax to klonopin 06/02/2015 Appointment: María Elena Appiah WPtel: [address] [place] [address] 06/02 lm FOLLOW UP 06/02/2015 Patient Education: Patient Medication Summary Completed 06/02/2015 Appointment: María Elena Appiah WPtel: [address] [place] [address] ACUTE ILLNESS 05/24/2015 Visit Plan: Increase clonidine to 0.2mg q HS Add cymbalta 30mg q HS Recheck 2weeks Stress Reducers Check fasting lab Discussed sleep study 05/20/2015 Appointment: María Elena Appiah WPtel: [address] [place] [address] ACUTE ILLNESS 05/20/2015 Patient Education: Patient Medication Summary Completed 05/20/2015 Patient Education: [facility] - Saving [employer] - Cymbalta - 18-64 - Dynamic Portal ID Completed 05/20/2015 Appointment: María Elena Appiah WPtel: [address] [place] [address] BP CHECK 05/19/2015 Patient Education: Patient Medication Summary Completed 05/19/2015 Visit Plan: Topical Bactroban alternatin g with topical betamethasone Recheck 2weeks 05/10/2015 Appointment: María Elena Appiah WPtel: [address] [place] [address] 05/07 vm cn...05/07 appt confirmed OFFICE SURGER Y 05/10/2015 Patient Education: Patient Medication Summary Completed 05/10/2015 Referral: Patrick [place] WPtel: [facility] [address] Referral Initiated 05/04/2015 Visit Plan: Saline nasal flushes prn. Ty lenol/Motrin prn headache. Notify if persists/symptoms worsening. Depomedrol 40mg IM today 03/16/2015 Appointment: María Elena Appiah WPtel: [address] [place] [address] ACUTE ILLNESS 03/16/2015 Patient Education: Patient Medication Summary Completed 03/16/2015 Appointment: María Elena Appiah WPtel: [address] [place] [address] ER Follow UP 03/09/2015 Visit Plan: Cryotherapy to lesions as ab ove 10/27/2014 Appointment: María Elena Appiah WPtel: [address] [place], [place] [phone] OFFICE SURGERY 10/27/2014 Patient Education: Patient Medication Summary Completed 10/27/2014 Appointment: June Flores WPtel: [address] [place] [address] ACUTE ILLNESS 09/11/2014 Patient Education: Patient Medication Summary Completed 09/11/2014 Visit Plan: Lab discussed Lipitor 10mg d aily Coenzyme Q-10 400mg daily Vitamin D3 5000u daily Recheck lipids with LFTs in 3mos then fwup 08/31/2014 Appointment: María Elena Appiah WPtel: [address] [place] [address] 08/28 voicemail FOLLOW UP 08/31/2014 Patient Education: Patient Medication Summary Completed 08/31/2014 Appointment: María Elena Appiah WPtel: [address] [place], [place] [phone] [place] LAB 08/27/2014 Appointment: María Elena Appiah WPtel: [address] [place], [place] [phone] [place] LAB 08/27/2014 Patient Education: Patient Medication Summary Completed 08/27/2014 Appointment: María Elena Appiah WPtel: [address] [place] [address] ACUTE ILLNESS 07/23/2014 Appointment: María Elena Appiah WPtel: [address] [place] [address] ACUTE ILLNESS 07/21/2014 Patient Education: Patient Medication Summary Completed 07/21/2014 Visit Plan: Kenalog 40mg IM today Contin ue narendra and singulair Add Flonase 07/15/2014 Appointment: María Elena Appiah WPtel: [address] [place] [address] ACUTE ILLNESS 07/15/2014 Appointment: María Elena Appiah WPtel: [address] [place] [address] ACUTE ILLNESS 07/15/2014 Patient Education: Patient Medication Summary Completed 07/15/2014 Visit Plan: Will do metolazone 2.5mg prn with 6 potassium and see if causes as severe cramping Trial of of seroquel XR 50mg q PM with evening meal and let us know how works 05/18/2014 Appointment: María Elena Appiah WPtel: [address] [place], [place] [phone] 09/05 left message FOLLOW UP 05/18/2014 Patient Education: Patient Medication Summary Completed 05/18/2014 Appointment: María Elena Appiah WPtel: [address] [place] [address] LAB 05/14/2014 Patient Education: Patient Medication Summary Completed 05/14/2014 Appointment: María Elena Appiah WPtel: [address] [place], [place] [phone] [place] INJECTION 04/22/2014 Visit Plan: Tisah and Miranda today a nd finish abx given from urgent care 04/21/2014 Appointment: María Elena Appiah WPtel: [address] [place] [address] [place] INJECTION 04/21/2014 Patient Education: Patient Medication Summary Completed 04/21/2014 Appointment: June Flores WPtel: [address] [place] [address] ACUTE ILLNESS 03/04/2014 Patient Education: Patient Medication Summary Completed 03/04/2014 Appointment: María Elena Appiah WPtel: [address] [place] [address] [place] INJECTION 02/27/2014 Patient Education: Patient Medication Summary Completed 02/27/2014 Visit Plan: Cryotherapy as above to all lesions Patient wants to try no meds for insomnia for a while and see how goes 01/13/2014 Appointment: María Elena Appiah WPtel: [address] [place] [address] OFFICE SURGERY 01/13/2014 Patient Education: Patient Medication Summary Completed 01/13/2014 Visit Plan: Stop Melatonin Stop Soma Tri al of trazadone 75mg q HS See ENT for possible tubes as has had chronic ETD and serous otitis media with numerous steroids 12/24/2013 Appointment: María Elena Appiah WPtel: [address] [place] [address] ACUTE ILLNESS 12/24/2013 Patient Education: Patient Medication Summary Completed 12/24/2013 Visit Plan: Saline nasal flushes prn. Ty lenol/Motrin prn headache. Notify if persists/symptoms worsening. 11/12/2013 Appointment: María Elena Appiah WPtel: [address] [place] [address] ACUTE ILLNESS 11/12/2013 Patient Education: Patient Medication Summary Completed 11/12/2013 Appointment: María Elena Appiah WPtel: [address] [place] [address] ACUTE ILLNESS 10/21/2013 Patient Education: Patient Medication Summary Completed 10/21/2013 Visit Plan: Sleep hygiene and sleep rout ine Melatonin 10mg q HS Support stockings and observe 09/22/2013 Appointment: María Elena Appiah WPtel: [address] [place] [address] ACUTE ILLNESS 09/22/2013 Patient Education: Patient Medication Summary Completed 09/22/2013 Appointment: June Flores WPtel: [address] [place] [address] ACUTE ILLNESS 08/27/2013 Patient Education: Patient Medication Summary Completed 08/27/2013 Visit Plan: Proceed with CT scan of head /neck Proceed with occipital nerve injections Butrans 20mcg patch weekly until can get into see Dr. Mcdonough for injections 08/04/2013 Appointment: María Elena Appiah WPtel: [address] [place] [address] FOLLOW UP 08/04/2013 Patient Education: Patient Medication Summary Completed 08/04/2013 Visit Plan: OMT done Daily neck stretche s, moist heat Increase Celebrex to 200mg BID Add flexeril 07/23/2013 Appointment: María Elena Appiah WPtel: [address] [place] [address] 07/22 voicemail FOLLOW UP 07/23/2013 Patient Education: Patient Medication Summary Completed 07/23/2013 Appointment: María Elena Appiah WPtel: [address] [place] [address] ACUTE ILLNESS 06/23/2013 Patient Education: Patient Medication Summary Completed 06/23/2013 Appointment: María Elena Appiah WPtel: [address] [place] [address] ACUTE ILLNESS 05/26/2013 Patient Education: Patient Medication Summary Completed 05/26/2013 Visit Plan: Decrease clonidine to 0.1mg TID If BP remains stable consider decreasing amlodopine Prednisone for 5 days BP check in 1mo 04/16/2013 Appointment: María Elena Appiah WPtel: [address] [place] [address] 04/14 pt called and confirmed appt FOLLOW UP 04/16/2013 Patient Education: Patient Medication Summary Completed 04/16/2013 Appointment: María Elena Appiah WPtel: [address] [place] [address] ACUTE ILLNESS 03/05/2013 Patient Education: Patient Medication Summary Completed 03/05/2013 Visit Plan: Pt has MARIA ELENA on with Dr. Mcdonough Continue Butrans patch Refill Hydrocodone early tomorrow 12/23/2012 Appointment: María Elena Appiah WPtel: [address] [place] [address] FOLLOW UP 12/23/2012 Patient Education: Patient Medication Summary Completed 12/23/2012 Appointment: Lashawn Eckert WPtel: [address] [place] [address] ACUTE ILLNESS 12/16/2012 Patient Education: Patient Medication Summary Completed 12/16/2012 Visit Plan: Proceed with updated MRI of LS spine Continue gabapentin and add soma and diclofenac Will likely need to go for another epidural 12/09/2012 Appointment: María Elena Appiah WPtel: [address] [place] [address] ACUTE ILLNESS 12/09/2012 Patient Education: Patient Medication Summary Completed 12/09/2012 Visit Plan: Injection as above Finish me drol dose pack Chiropracter this afternoon 12/04/2012 Appointment: María Elena Appiah WPtel: [address] [place], [place] [phone] ACUTE ILLNESS 12/04/2012 Patient Education: Patient Medication Summary Completed 12/04/2012 Appointment: Mary Tillman WPtel: [address] [place], [place] [phone] FOLLOW UP 11/22/2012 Patient Education: Patient Medication Summary Completed 11/22/2012 Appointment: María Elena Appiah WPtel: [address] [place], [place] [phone] ACUTE ILLNESS 11/21/2012 Patient Education: Patient Medication Summary Completed 11/21/2012 Appointment: María Elena Appiah WPtel: [address] [place] [address] BP CHECK 11/07/2012 Patient Education: Patient Medication [...] BP re-check. 10/29/2012 Appointment: Lashawn Eckert WPtel: [address] [place] [address] ACUTE ILLNESS 10/29/2012 Patient Education: Patient Medication Summary Completed 10/29/2012 Appointment: María Elena Appiah WPtel: [address] [place], [place] [phone] ACUTE ILLNESS 10/14/2012 Patient Education: Patient Medication Summary Completed 10/14/2012 Appointment: María Elena Appiah WPtel: [address] [place], [place] [phone] UA 09/27/2012 Patient Education: Patient Medication Summary Completed 09/27/2012 Appointment: María Elena Appiah WPtel: [address] [place], [place] [phone] ACUTE ILLNESS 09/25/2012 Patient Education: Patient Medication Summary Completed 09/25/2012 Appointment: María Elena Appiah WPtel: [address] [place], [place] [phone] BP CHECK 09/24/2012 Appointment: María Elena Appiah WPtel: [address] [place], [place] [phone] ACUTE ILLNESS 08/29/2012 Patient Education: Patient Medication Summary Completed 08/29/2012 Visit Plan: Cryotherapy as above See Karlos m for right ear lesion--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 ACUTE ILLNESS 05/06/2012 Patient Education: Patient Medication Summary Completed 05/06/2012 Visit Plan: Pt wants to hold on any furt her sleep medications 04/03/2012 Appointment: María Elena Appiah WPtel: [address] [place], [place] [phone] [place] FOLLOW UP 04/03/2012 Patient Education: Patient Medication Summary Completed 04/03/2012 Appointment: María Elena Appiahtel: [address] [place], [place] [phone] [place] FOLLOW UP 03/19/2012 Patient Education: Patient Medication Summary Completed 03/19/2012 Appointment: María Elena Appiah WPtel: [address] [place] [address] BP CHECK 02/22/2012 Patient Education: Patient Medication Summary Completed 02/22/2012 Appointment: María Elena Appiahtel: [address] [place] [address] BP CHECK 02/21/2012 Patient Education: Patient Medication Summary Completed 02/21/2012 Visit Plan: Doxycycline and bactroban fo r foot Supportive care on ankles and knees Add norvasc for BP 02/20/2012 Appointment: María Elena Appiah WPtel: [address] [place] [address] ER Follow UP 02/20/2012 Patient Education: Patient Medication Summary Completed 02/20/2012 Appointment: María Elena Appiah WPtel: [address] [place] [address] ACUTE ILLNESS 01/30/2012 Patient Education: Patient Medication Summary Completed 01/30/2012 Appointment: María Elena Appiah WPtel: [address] [place] [address] ACUTE ILLNESS 01/24/2012 Patient Education: Patient Medication Summary Completed 01/24/2012 Visit Plan: Daily back stretches, moist heat, Biofreeze prn OMT done 01/10/2012 Appointment: María Elena Appiah WPtel: [address] [place] [address] ACUTE ILLNESS 01/10/2012 Patient Education: Patient Medication Summary Completed 01/10/2012 Appointment: María Elena Appiah WPtel: [address] [place] [address] [place] FOLLOW UP 12/11/2011 Patient Education: Patient Medication Summary Completed 12/11/2011 Appointment: María Elena Appiah WPtel: [address] [place] [address] ACUTE ILLNESS 11/09/2011 Patient Education: Patient Medication Summary Completed 11/09/2011 Appointment: María Elena Appiah WPtel: [address] [place], [place] [phone] ACUTE ILLNESS 09/13/2011 Patient Education: Patient Medication Summary Completed 09/13/2011 Visit Plan: Check CBC, TSH, Free T4, CMP , ESR, Vit D, B12 now Start Prednisone today 08/31/2011 Appointment: María Elena Appiah WPtel: [address] [place], [place] [phone] ACUTE ILLNESS 08/31/2011 Patient Education: Patient Medication Summary Completed 08/31/2011 Appointment: María Elena Appiah WPtel: [address] [place], [place] [phone] [place] INJECTION 07/20/2011 Patient Education: Patient Medication Summary Completed 07/20/2011 Visit Plan: Continue current meds Monite r BP Cont stretches from PT 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 07/06/2011 Appointment: María Elena Appiah WPtel: [address] [place] [address] FOLLOW UP 07/06/2011 Patient Education: Patient Medication Summary Completed 07/06/2011 Appointment: María Elena Appiahtel: [address] [place] [address] BP CHECK 06/06/2011 Patient Education: Patient Medication Summary Completed 06/06/2011 Visit Plan: Add Bystolic at 2.5mg QAM Ad d Robaxin 750mg 2 po q HS BP check in 2wks 05/22/2011 Appointment: María Elena Appiah WPtel: [address] [place], [place] [phone] FOLLOW UP 05/22/2011 Patient Education: Patient Medication Summary Completed 05/22/2011 Appointment: María Elena Appiahtel: [address] [place] [address] ER Follow UP 05/09/2011 Patient Education: Patient Medication Summary Completed 05/09/2011 Appointment: María Elena Appiah WPtel: [address] [place] [address] FOLLOW UP 02/22/2011 Visit Plan: Rx written for Hydrocodone 1 0/325mg #240 See Ortho 02/14/2011 Appointment: María Elena Appiah WPtel: [address] [place] [address] [place] OMT 02/14/2011 Patient Education: Patient Medication [...] lab work. 02/03/2011 Appointment: Lashawn Eckert WPtel: [address] [place] [address] ACUTE ILLNESS 02/03/2011 Patient Education: Patient Medication Summary Completed 02/03/2011 Visit Plan: OMT done Cont daily stretche s 01/31/2011 Appointment: María Elena Appiah WPtel: [address] [place] [address] ACUTE ILLNESS 01/31/2011 Patient Education: Patient Medication Summary Completed 01/31/2011 Visit Plan: Continue pain meds OMT done Proceed with PT No work this summer01/25/2011 Appointment: María Elena Appiah WPtel: [address] [place] [address] ACUTE ILLNESS 01/25/2011 Patient Education: Patient Medication Summary Completed 01/25/2011 Visit Plan: Start PT Long discussion abo ut getting pain meds from only us and can only have max of 4grams of tylenol per day Change to Hydrocodone 10/325mg 1- 2 po TID prn pain--#180 called to [facility] 01/18/2011 Appointment: María Elena Appiahtel: [address] [place] [address] FOLLOW UP 01/18/2011 Patient Education: Patient Medication Summary Completed 01/18/2011 Visit Plan: Daily back stretches, moist heat, Biofreeze prn 11/29/2010 Appointment: María Elena Appiahtel: [address] [place] [address] ER Follow UP 11/29/2010 Patient Education: Patient Medication Summary Completed 11/29/2010 Visit Plan: Saline nasal flushes prn. Ty lenol/Motrin prn headache. Notify if persists/symptoms worsening. Finish augmentin Add Medrol Dose Pack 10/10/2010 Appointment: María Elena Appiahtel: [address] [place] [address] ACUTE ILLNESS 10/10/2010 Patient Education: Patient Medication Summary Completed 10/10/2010 Visit Plan: Cryotherapy x3 to multiple l esions on both forearms 07/19/2010 Appointment: María Elena Appiahtel: [address] [place] [address] OFFICE SURGERY 07/19/2010 Patient Education: Patient Medication Summary Completed 07/19/2010 Appointment: María Elena Appiahtel: [address] [place] [address] BP CHECK 07/06/2010 Patient Education: Patient Medication Summary Completed 07/06/2010 Appointment: María Elena Appiahtel: [address] [place] [address] BP CHECK 06/30/2010 Patient Education: Patient Medication Summary Completed 06/30/2010 Appointment: María Elena Appiahtel: [address] [place] [address] BP CHECK 06/20/2010 Patient Education: Patient Medication Summary Completed 06/20/2010 Visit Plan: Change Diovan to Exforge 160 /5mg QD OMT done to thoracics BP check in 2wks 06/07/2010 Appointment: María Elena Appiahtel: [address] [place] [address] FOLLOW UP 06/07/2010 Patient Education: Patient Medication Summary Completed 06/07/2010 Appointment: María Elena Appiah WPtel: [address] [place] [address] BP CHECK 06/03/2010 Patient Education: Patient Medication Summary Completed 06/03/2010 Appointment: María Elena Appiah WPtel: [address] [place] [address] BP CHECK 06/01/2010 Patient Education: Patient Medication Summary Completed 06/01/2010 Visit Plan: Irritated skin tags to left neck x2 excised at base with scissors and base cauterized 05/30/2010 Appointment: María Elena Appiah WPtel: [address] [place] [address] OFFICE SURGERY 05/30/2010 Patient Education: Patient Medication Summary Completed 05/30/2010 Visit Plan: Saline nasal flushes prn. Ty lenol/Motrin prn headache. Notify if persists/symptoms worsening. Restart Nasonex Has allergy testing set for May 25 04/27/2010 Appointment: María Elena Appiah WPtel: [address] [place] [address] ACUTE ILLNESS 04/27/2010 Patient Education: Patient Medication Summary Completed 04/27/2010 Visit Plan: Saline nasal flushes prn. Ty lenol/Motrin prn headache. Notify if persists/symptoms worsening. Omnaris BID plus injections 04/05/2010 Appointment: María Elena Appiah WPtel: [address] [place] [address] ACUTE ILLNESS 04/05/2010 Patient Education: Patient Medication Summary Completed 04/05/2010 Visit Plan: Saline nasal flushes prn. Ty lenol/Motrin prn headache. Notify if persists/symptoms worsening. 03/09/2010 Appointment: María Elena Appiah WPtel: [address] [place] [address] ACUTE ILLNESS 03/09/2010 Patient Education: Patient Medication Summary Completed 03/09/2010 Visit Plan: Cont Clonidine as is Cont Pr emarin Fwup with surgery as scheduled 03/03/2010 Appointment: María Elena Appiah WPtel: [address] [place] [address] FOLLOW UP 03/03/2010 Patient Education: Patient Medication Summary Completed 03/03/2010 Visit Plan: Check Pelvic US now Discusse tacho Dand C vs Hysterectomy 01/17/2010 Appointment: María Elena Appiah WPtel: [address] [place] [address] ACUTE ILLNESS 01/17/2010 Patient Education: Patient Medication Summary Completed 01/17/2010 Visit Plan: Check fasting lab and schedu le Mammogram 2gm Na Diet Trial of Ambien 10mg qhs Fwup pending lab results 12/27/2009 Appointment: María Elena Appiah WPtel: [address] [place] [address] ESTABLISHED PATIENT 12/27/2009 Patient Education: Patient Medication Summary Completed 12/27/2009 Referral: Canelo Overton WPtel: [address] [place] [address] [place] Referral Initiated Referral: Philipp Flores WPtel: [address] [id number] [place] Referral Appointment Requested Instructions Comment . [...]
--- OUTSIDE RECORDS SUMMARY | 2020-03-13 06:37 | XMS REPORT | CCD ---
Author Author Gale Appiah D.O. Organization [facility] Address [address] [place] [id number] Phone Care Team Providers Care Recruiting Administrator Name Role Phone María Elena Appiah D.O., PP Unavailable CCM Unavailable Summary Purpose Interface Exchange Insurance Providers Payer name Policy type / Coverage type Covered constitution party ID Effective Begin Date Effective End Date [facility] Commercial Insurance [id number] Unknown Family History Family History data not found Social History Social History Element Codes Description Effective Dates Tobacco history SNOMED CT: [id number] Never smoker 05/22/2011 Allergies, Adverse Reactions, Alerts [...] Fill Instructions gabapentin 300 mg capsule RxNorm: 891298 TAKE ONE CAPSU LE BY MOUTH EVERY NIGHT AT BEDTIME 09/19/2019 No Stop Date Active baclofen 10 mg tablet RxNorm: 564344 TAKE ONE TABLET BY MOUTH THREE TIMES A DAY NEEDED 09/19/2019 No Stop Date Active Klor-Con 8 mEq tablet,extended release RxNorm: 162339 T FARRUKH ONE TABLET BY MOUTH TWICE A DAY 1 Tablet(s) Oral two times a day 09/19/2019 10/19/2019 Act darion hydrocodone 10 mg-acetaminophen 325 mg tablet RxNorm: 269307 1-2 Tablet(s) Oral three times a day as needed for pain 09/19/2019 No Stop Date Active duloxetine 60 mg capsule,delayed release RxNorm: 860749 TAKE ONE CAPSULE BY MOUTH DAILY 09/11/2019 No Stop Date Active Lipitor 10 mg tablet RxNorm: 725959 TAKE ONE TABLET BY MOUTH AT BEDTIME 09/11/2019 No Stop Date Active lisinopril 20 mg tablet RxNorm: 183135 TAKE ONE TABLET BY MOUTH DAILY .... THIS REPLACE 10MG TABLETS 09/11/2019 No Stop Date Active triamterene 75 mg-hydrochlorothiazide 50 mg tablet RxNorm: 3 34426 TAKE ONE TABLET BY MOUTH DAILY 09/11/2019 No Stop Date Active allopurinol 300 mg tablet RxNorm: 808930 TAKE ONE TABLET BY LOPEZ TH DAILY 09/11/2019 No Stop Date Active celecoxib 200 mg capsule RxNorm: 579975 TAKE ONE CAPSUL E BY MOUTH TWICE A DAY NEEDED FOR PAIN 09/11/2019 No Stop Date Active clonidine HCl 0.1 mg tablet RxNorm: 617856 TAKE ONE TAB LET BY MOUTH FOUR TIMES A DAY 09/11/2019 No Stop Date Active doxepin 25 mg capsule RxNorm: 3384712 1 Capsule(s) Oral every night at bedtime as needed for sleep 08/21/2019 11/18/2019 Active hydrocodone 10 mg-acetaminophen 325 mg tablet RxNorm: 417802 1-2 Tablet(s) PO TID 08/12/2019 No Stop Date Active as needed for pa in - Previous quantity #240, will start dosing for #180 in April 2011 per Doctor Td. Medrol (Dustin) 4 mg tablets in a dose pack RxNorm: 469175 Tablet(s) Oral As Directed 07/21/2019 No Stop Date Active Premarin 1.25 mg tablet RxNorm: 592957 1 Tablet(s) Oral QD 07/02/20 19 03/28/2020 Active hydrocodone 10 mg-acetaminophen 325 mg tablet RxNorm: 011191 1-2 Tablet(s) PO TID 07/01/2019 08/11/2019 Inactive as needed for pa in - Previous quantity #240, will start dosing for #180 in April 2011 per Doctor Td. gabapentin 300 mg capsule RxNorm: 921068 1 Capsule(s) PO QHS 201809/18/2019 Inactive celecoxib 200 mg capsule RxNorm: 770947 1 Capsule(s) Or al two times a day as needed for pain 06/27/2019 06/27/2019 Inactive Singulair 10 mg tablet RxNorm: 915732 TAKE ONE TABLET BY MOUTH JOSÉ Y 06/24/2019 No Stop Date Active furosemide 40 mg tablet RxNorm: 769408 TAKE ONE TABLET BY MOUTH EVERY MORNING NEEDED FOR EDEMA . TAKE WITH POTASSIUM 06/24/2019 No Stop Date Active doxepin 25 mg capsule RxNorm: 2924522 TAKE ONE CAPSULE B Y MOUTH EVERY NIGHT AT BEDTIME NEEDED FOR SLEEP 06/24/2019 08/20/2019 Inactive lisinopril 20 mg tablet RxNorm: 370321 TAKE ONE TABLET BY MOUTH DAILY .... THIS REPLACE 10MG TABLETS 06/24/2019 09/10/2019 Inactive nystatin-triamcinolone 100,000 unit/g-0.1 % topical cream Rx Norm: 6968825 1 Application Topical two times a day 06/12/2019 06/19/2019 Inactive apply BID for 1 week nystatin-triamcinolone 100,000 unit/g-0.1 % topical cream Rx Norm: 1260239 1 Application Topical two times a day 06/12/2019 06/11/2019 Inactive apply BID for 1 week hydrocodone 10 mg-acetaminophen 325 mg tablet RxNorm: 459516 1-2 Tablet(s) PO QID as needed for pain MUST LAST 30 DAYS 05/28/2019 06/26/2019 Inactiv e (Response to an electronic controlled substance refill request [id number]) baclofen 20 mg tablet RxNorm: 307194 1 Tablet(s) PO TID as needed for muscle spasm 05/19/2019 05/27/2019 Inactive gabapentin 300 mg capsule RxNorm: 002120 1 Capsule(s) PO QHS 201805/27/2019 Inactive lisinopril 20 mg tablet RxNorm: 625818 1 Tablet(s) PO Q D TAKE ONE TABLET BY MOUTH DAILY, REPLACES 10 MG DOSE 05/19/2019 06/23/2019 Inactive doxepin 25 mg capsule RxNorm: 7193155 TAKE ONE CAPSULE B Y MOUTH EVERY NIGHT AT BEDTIME NEEDED FOR SLEEP 05/16/2019 06/14/2019 Inactive lisinopril 20 mg tablet RxNorm: 128332 TAKE ONE TABLET BY MOUTH DAILY, REPLACES 10 MG DOSE 05/16/2019 05/18/2019 Inactive Singulair 10 mg tablet RxNorm: 089555 TAKE ONE TABLET BY MOUTH JOSÉ Y 05/16/2019 06/14/2019 Inactive gabapentin 300 mg capsule RxNorm: 319614 1 Capsule(s) PO QHS 201805/04/2019 Inactive estropipate 1.5 mg tablet RxNorm: 425367 1 Tablet(s) PO QD 05/05/2005/27/2019 Inactive estropipate 1.5 mg tablet RxNorm: 441590 1 Tablet(s) PO QD 05/05/2005/04/2019 Inactive gabapentin 300 mg capsule RxNorm: 284240 1 Capsule(s) PO QHS 201805/18/2019 Inactive hydrocodone 10 mg-acetaminophen 325 mg tablet RxNorm: 398925 1-2 Tablet(s) PO QID as needed for pain MUST LAST 30 DAYS 04/25/2019 05/24/2019 Inactiv e (Response to an electronic controlled substance refill request - RxReferenceNumber: [id number]) metoprolol tartrate 100 mg tablet RxNorm: 669173 TAKE O NE TABLET BY MOUTH TWICE A DAY 04/24/2019 06/22/2019 Inactive cyclobenzaprine 10 mg tablet RxNorm: 806523 TAKE ONE TA BLET BY MOUTH THREE TIMES A DAY NEEDED FOR MUSCLE SPASMS 04/24/2019 05/18/2019 Inactive Lyrica 75 mg capsule RxNorm: 544728 1 Capsule(s) PO QHS 03/25/2019 Inactive duloxetine 60 mg capsule,delayed release RxNorm: 511655 TAKE ONE CAPSULE BY MOUTH DAILY 03/21/2019 05/19/2019 Inactive triamterene 75 mg-hydrochlorothiazide 50 mg tablet RxNorm: 3 16693 TAKE ONE TABLET BY MOUTH DAILY 03/21/2019 05/19/2019 Inactive Klor-Con 8 mEq tablet,extended release RxNorm: 808477 T FARRUKH ONE TABLET BY MOUTH TWICE A DAY 03/21/2019 09/18/2019 Inactive Lipitor 10 mg tablet RxNorm: 701113 TAKE ONE TABLET BY MOUTH AT BEDTIME 03/21/2019 09/10/2019 Inactive clonidine HCl 0.1 mg tablet RxNorm: 929620 TAKE ONE TAB LET BY MOUTH FOUR TIMES A DAY 03/21/2019 05/19/2019 Inactive allopurinol 300 mg tablet RxNorm: 829983 TAKE ONE TABLET BY LOPEZ TH DAILY 03/21/2019 05/19/2019 Inactive hydrocodone 10 mg-acetaminophen 325 mg tablet RxNorm: 543461 1-2 Tablet(s) PO QID as needed for pain MUST LAST 30 DAYS 02/28/2019 03/29/2019 Inactiv e (Response to an electronic controlled substance refill request - RxReferenceNumber: [id number]) furosemide 40 mg tablet RxNorm: 824159 TAKE ONE TABLET BY MOUTH EVERY MORNING NEEDED FOR EDEMA . TAKE WITH POTASSIUM 02/21/2019 03/22/2019 Inactive cyclobenzaprine 10 mg tablet RxNorm: 341691 TAKE ONE TA BLET BY MOUTH THREE TIMES A DAY NEEDED FOR MUSCLE SPASMS 02/21/2019 04/21/2019 Inactive lisinopril 20 mg tablet RxNorm: 483098 TAKE ONE TABLET BY MOUTH DAILY, REPLACES 10 MG DOSE 02/21/2019 05/15/2019 Inactive doxepin 25 mg capsule RxNorm: 2879482 TAKE ONE CAPSULE B Y MOUTH EVERY NIGHT AT BEDTIME NEEDED FOR SLEEP 02/21/2019 05/15/2019 Inactive nystatin 100,000 unit/gram topical cream RxNorm: 510641 APPLY TO AFFECTED AREA(S) TWO TIMES A DAY 02/21/2019 03/22/2019 Inactive estradiol 1 mg tablet RxNorm: 013610 2 Tablet(s) PO QD replaces premarin 01/22/2019 05/04/2019 Inactive lisinopril 20 mg tablet RxNorm: 516253 TAKE ONE TABLET BY MOUTH DAILY, REPLACES 10 MG DOSE 01/20/2019 02/18/2019 Inactive cyclobenzaprine 10 mg tablet RxNorm: 974962 TAKE ONE TA BLET BY MOUTH THREE TIMES A DAY NEEDED FOR MUSCLE SPASMS 01/20/2019 02/18/2019 Inactive metoprolol tartrate 100 mg tablet RxNorm: 817005 TAKE O NE TABLET BY MOUTH TWICE A DAY 01/20/2019 02/18/2019 Inactive cyclobenzaprine 10 mg tablet RxNorm: 692725 TAKE ONE TA BLET BY MOUTH THREE TIMES A DAY NEEDED FOR MUSCLE SPASMS 12/19/2018 01/17/2019 Inactive lisinopril 20 mg tablet RxNorm: 603002 TAKE ONE TABLET BY MOUTH DAILY, REPLACES 10 MG DOSE 12/19/2018 01/17/2019 Inactive duloxetine 60 mg capsule,delayed release RxNorm: 211127 TAKE ONE CAPSULE BY MOUTH DAILY 12/19/2018 01/17/2019 Inactive Lipitor 10 mg tablet RxNorm: 896875 TAKE ONE TABLET BY MOUTH AT BEDTIME 12/19/2018 01/17/2019 Inactive cyclobenzaprine 10 mg tablet RxNorm: 730280 1 Tablet(s) PO TID as needed for muscle spasm 11/19/2018 12/18/2018 Inactive Singulair 10 mg tablet RxNorm: 011688 1 Tablet(s) PO QD 11/19/2018 Inactive lisinopril 20 mg tablet RxNorm: 391954 TAKE ONE TABLET BY MOUTH DAILY, REPLACES 10 MG DOSE 11/15/2018 12/18/2018 Inactive hydrocodone 10 mg-acetaminophen 325 mg tablet RxNorm: 635696 1-2 Tablet(s) PO QID as needed for pain MUST LAST 30 DAYS 11/13/2018 12/12/2018 Inactiv e (Response to an electronic controlled substance refill request - RxReferenceNumber: [id number]) nystatin 100,000 unit/gram topical cream RxNorm: 220958 APPLY TO AFFECTED AREA(S) TWO TIMES A DAY 10/23/2018 11/06/2018 Inactive lisinopril 20 mg tablet RxNorm: 047384 1 Tablet(s) PO QD replac es 10mg dose 10/18/2018 11/14/2018 Inactive hydrocodone 10 mg-acetaminophen 325 mg tablet RxNorm: 920432 1-2 Tablet(s) QID as needed for pain MUST LAST 30 DAYS 10/08/2018 11/06/2018 Inactive (Response to an electronic controlled substance refill request - RxReferenceNumber: [id number]) lisinopril 10 mg tablet RxNorm: 933687 1 Tablet(s) PO QD 10/03/2018 0 01/21/2019 Inactive Celebrex 200 mg capsule RxNorm: 547013 TAKE ONE CAPSULE BY MOUT H TWICE A DAY 09/30/2018 05/04/2019 Inactive cyclobenzaprine 10 mg tablet RxNorm: 921251 TAKE ONE TA BLET BY MOUTH THREE TIMES A DAY NEEDED FOR MUSCLE SPASMS 09/30/2018 11/18/2018 Inactive doxepin 25 mg capsule RxNorm: 0074684 TAKE ONE CAPSULE B Y MOUTH EVERY NIGHT AT BEDTIME NEEDED 09/05/2018 10/16/2018 Inactive omeprazole 40 mg capsule,delayed release RxNorm: 560675 TAKE ONE CAPSULE BY MOUTH DAILY 09/05/2018 01/21/2019 Inactive furosemide 40 mg tablet RxNorm: 040679 TAKE ONE TABLET BY MOUTH EVERY MORNING NEEDED FOR EDEMA . TAKE WITH POTASSIUM 09/05/2018 11/03/2018 Inactive phentermine 37.5 mg tablet RxNorm: 621336 1 Tablet(s) PO QAM 201701/21/2019 Inactive doxepin 25 mg capsule RxNorm: 4430479 1 Capsule(s) PO QH S as needed for sleep TAKE ONE CAPSULE BY MOUTH EVERY NIGHT AT BEDTIME NEEDED 08/27/2018 09/04/2018 Inactive Keflex 500 mg capsule RxNorm: 127609 1 Capsule(s) PO TID 08/09/2018 1 10/19/2017 Inactive Diflucan 100 mg tablet RxNorm: 161082 1 Tablet(s) PO QD 08/09/2018 Inactive Premarin 1.25 mg tablet RxNorm: 366995 2 Tablet(s) PO QD 08/09/2018 0 05/04/2019 Inactive Zofran ODT 4 mg disintegrating tablet RxNorm: 079078 1 Tablet(s) PO Q4H as needed for nausea 08/09/2018 01/21/2019 Inactive metoprolol tartrate 100 mg tablet RxNorm: 223964 TAKE O NE TABLET BY MOUTH TWICE A DAY 2018 10/04/2018 Inactive doxepin 25 mg capsule RxNorm: 5547851 TAKE ONE CAPSULE B Y MOUTH EVERY NIGHT AT BEDTIME NEEDED 2018 08/26/2018 Inactive cyclobenzaprine 10 mg tablet RxNorm: 423730 TAKE ONE TA BLET BY MOUTH THREE TIMES A DAY NEEDED FOR MUSCLE SPASMS 2018 09/29/2018 Inactive hydrocodone 10 mg-acetaminophen 325 mg tablet RxNorm: 516411 1-2 Tablet(s) QID as needed for pain MUST LAST 30 DAYS 07/29/2018 08/27/2018 Inactive (Response to an electronic controlled substance refill request - RxReferenceNumber: [id number]) nystatin 100,000 unit/gram topical powder RxNorm: 978731 Applic ation TOP BID 07/22/2018 08/04/2018 Inactive doxepin 25 mg capsule RxNorm: 7430681 1 Capsule(s) PO QHS as needed 07/22/2018 08/05/2018 Inactive triamterene 75 mg-hydrochlorothiazide 50 mg tablet RxNorm: 3 83181 TAKE ONE TABLET BY MOUTH DAILY 07/05/2018 10/02/2018 Inactive duloxetine 60 mg capsule,delayed release RxNorm: 618880 TAKE ONE CAPSULE BY MOUTH DAILY 07/05/2018 09/02/2018 Inactive Klor-Con 8 mEq tablet,extended release RxNorm: 929037 T FARRUKH ONE TABLET BY MOUTH TWICE A DAY 07/05/2018 10/02/2018 Inactive Lipitor 10 mg tablet RxNorm: 027566 TAKE ONE TABLET BY MOUTH AT BEDTIME 07/05/2018 09/02/2018 Inactive allopurinol 300 mg tablet RxNorm: 296658 TAKE ONE TABLET BY LOPEZ TH DAILY 07/05/2018 10/02/2018 Inactive clonidine HCl 0.1 mg tablet RxNorm: 817037 TAKE ONE TAB LET BY MOUTH FOUR TIMES A DAY 07/05/2018 10/02/2018 Inactive hydrocodone 10 mg-acetaminophen 325 mg tablet RxNorm: 319420 1-2 Tablet(s) QID as needed for pain MUST LAST 30 DAYS 06/28/2018 07/27/2018 Inactive (Response to an electronic controlled substance refill request - RxReferenceNumber: [id number]) MediHoney (calcium alginate-honey) 4" X 5" bandage RxNorm: 1 Application TOP QD 06/17/2018 06/26/2018 Inactive honey-hydrocolloid dressing 4" X 5" RxNorm: 1 Application TOP QD 06/17/2018 07/16/2018 Inactive furosemide 40 mg tablet RxNorm: 773530 TAKE ONE TABLET BY MOUTH EVERY MORNING NEEDED FOR EDEMA . TAKE WITH POTASSIUM 06/10/2018 07/09/2018 Inactive This is a refill request. hydrocodone 10 mg-acetaminophen 325 mg tablet RxNorm: 968186 1-2 Tablet(s) QID as needed for pain MUST LAST 30 DAYS 05/30/2018 06/27/2018 Inactive (Response to an electronic controlled substance refill request - RxReferenceNumber: [id number]) acyclovir 800 mg tablet RxNorm: 186075 1 Tablet(s) PO 5x day 201705/22/2018 Inactive Premarin 1.25 mg tablet RxNorm: 804521 1-2 Tablet(s) PO QD 05/15/20 18 07/13/2018 Inactive cyclobenzaprine 10 mg tablet RxNorm: 856864 1 Tablet(s) PO TID as needed for muscle spasm 05/09/2018 05/08/2018 Inactive Medrol (Dustin) 4 mg tablets in a dose pack RxNorm: 590217 Tablet(s) PO As Directed 05/02/2018 06/16/2018 Inactive hydrocodone 10 mg-acetaminophen 325 mg tablet RxNorm: 344538 1-2 Tablet(s) QID as needed for pain MUST LAST 30 DAYS 04/30/2018 05/29/2018 Inactive (Response to an electronic controlled substance refill request - RxReferenceNumber: [id number]) duloxetine 60 mg capsule,delayed release RxNorm: 380168 TAKE ONE CAPSULE BY MOUTH DAILY 04/16/2018 05/15/2018 Inactive Celebrex 200 mg capsule RxNorm: 252951 TAKE ONE CAPSULE BY MOUT H TWICE A DAY 04/16/2018 06/14/2018 Inactive Singulair 10 mg tablet RxNorm: 753533 TAKE ONE TABLET BY MOUTH JOSÉ Y 04/16/2018 11/19/2018 Inactive Lipitor 10 mg tablet RxNorm: 626579 TAKE ONE TABLET BY MOUTH AT BEDTIME 04/16/2018 05/15/2018 Inactive hydrocodone 10 mg-acetaminophen 325 mg tablet RxNorm: 625909 1-2 Tablet(s) QID as needed for pain MUST LAST 30 DAYS 03/29/2018 04/27/2018 Inactive (Response to an electronic controlled substance refill request - RxReferenceNumber: [id number]) cyclobenzaprine 10 mg tablet RxNorm: 171020 1 Tablet(s) PO TID as needed for muscle spasm 03/18/2018 05/09/2018 Inactive omeprazole 40 mg capsule,delayed release RxNorm: 036015 1 Capsu le(s) PO QD 02/26/2018 08/24/2018 Inactive hydrocodone 10 mg-acetaminophen 325 mg tablet RxNorm: 596023 1-2 Tablet(s) QID as needed for pain MUST LAST 30 DAYS 02/26/2018 03/27/2018 Inactive (Response to an electronic controlled substance refill request - RxReferenceNumber: [id number]) metoprolol tartrate 100 mg tablet RxNorm: 699366 1 Tablet(s) PO BID 02/18/2018 08/05/2018 Inactive Lyrica 75 mg capsule RxNorm: 200386 1 Capsule(s) PO QHS 01/30/2018 Inactive phentermine 37.5 mg tablet RxNorm: 030396 1 Tablet(s) PO QAM 201706/16/2018 Inactive hydrocodone 10 mg-acetaminophen 325 mg tablet RxNorm: 378344 1-2 Tablet(s) QID as needed for pain MUST LAST 30 DAYS 01/29/2018 02/25/2018 Inactive (Response to an electronic controlled substance refill request - RxReferenceNumber: [id number]) Klor-Con 8 mEq tablet,extended release RxNorm: 092336 1 Tablet( s) PO BID 01/14/2018 07/04/2018 Inactive allopurinol 300 mg tablet RxNorm: 793239 1 Tablet(s) PO QD 01/15/2007/04/2018 Inactive Lipitor 10 mg tablet RxNorm: 094982 1 Tablet(s) PO QHS 01/14/201812/2017 Inactive triamterene 75 mg-hydrochlorothiazide 50 mg tablet RxNorm: 3 97829 1 Tablet(s) PO QD 01/14/2018 07/04/2018 Inactive hydrocodone 10 mg-acetaminophen 325 mg tablet RxNorm: 913052 1-2 Tablet(s) QID as needed for pain MUST LAST 30 DAYS 12/27/2017 01/25/2018 Inactive (Response to an electronic controlled substance refill request - RxReferenceNumber: [id number]) Onglyza 5 mg tablet RxNorm: 117088 1 Tablet(s) PO QD 12/18/201701/29 Inactive metformin 500 mg tablet RxNorm: 477897 1 Tablet(s) PO BID 12/11/2017 12/10/2017 Inactive metformin 500 mg tablet RxNorm: 665419 1 Tablet(s) PO BID 12/11/2017 12/17/2017 Inactive furosemide 40 mg tablet RxNorm: 840728 1 Tablet(s) PO Q AM prn edema--take with potassium 12/11/2017 06/08/2018 Inactive cyclobenzaprine 10 mg tablet RxNorm: 596056 1 Tablet(s) PO TID as needed for muscle spasm 12/11/2017 03/18/2018 Inactive hydrocodone 10 mg-acetaminophen 325 mg tablet RxNorm: 043705 1-2 Tablet(s) QID as needed for pain MUST LAST 30 DAYS 10/23/2017 11/21/2017 Inactive (Response to an electronic controlled substance refill request - RxReferenceNumber: [id number]) Lipitor 10 mg tablet RxNorm: 519975 1 Tablet(s) PO QHS 10/16/201703/2018 Inactive cyclobenzaprine 10 mg tablet RxNorm: 957263 1 Tablet(s) PO TID as needed for muscle spasm 10/09/2017 12/10/2017 Inactive hydroxyzine HCl 25 mg tablet RxNorm: 168945 1 Tablet(s) PO BID as needed for anxiety 09/20/2017 01/29/2018 Inactive Effexor XR 75 mg capsule,extended release RxNorm: 487813 1 Caps ule(s) PO QD 09/20/2017 01/29/2018 Inactive metoprolol tartrate 100 mg tablet RxNorm: 798797 1 Tablet(s) PO BID 08/20/2017 02/18/2018 Inactive baclofen 20 mg tablet RxNorm: 720697 1 Tablet(s) PO TID as needed for muscle spasm 08/20/2017 01/21/2019 Inactive clonidine HCl 0.1 mg tablet RxNorm: 363921 1 Tablet(s) PO QID 08/2005/16/2018 Inactive Seroquel 25 mg tablet RxNorm: 999398 1 Tablet(s) PO QHS 08/17/2017 Inactive Seroquel 25 mg tablet RxNorm: 325705 1 Tablet(s) PO QHS 08/17/2017 Inactive Diflucan 100 mg tablet RxNorm: 470639 TAKE ONE TABLET BY MOUTH JOSÉ Y 07/25/2017 08/07/2017 Inactive hydrocodone 10 mg-acetaminophen 325 mg tablet RxNorm: 049927 1-2 Tablet(s) QID as needed for pain MUST LAST 30 DAYS 07/19/2017 08/17/2017 Inactive (Response to an electronic controlled substance refill request - RxReferenceNumber: [id number]) clindamycin 300 mg capsule RxNorm: 669654 1 Capsule(s) PO TID 07/1907/28/2017 Inactive clotrimazole-betamethasone 1 %-0.05 % topical cream RxNorm: 224432 Application TOP BID to elbow rash 07/19/2017 06/16/2018 Inactive Singulair 10 mg tablet RxNorm: 352883 Tablet(s) TAKE ONE TABLET BY MOUTH DAILY 07/18/2017 04/13/2018 Inactive triamterene 75 mg-hydrochlorothiazide 50 mg tablet RxNorm: 3 37594 1 Tablet(s) PO QD 07/18/2017 01/14/2018 Inactive Celebrex 200 mg capsule RxNorm: 833446 Capsule(s) TAKE ONE CAPSULE BY MOUTH TWICE A DAY 07/18/2017 10/15/2017 Inactive hydrocodone 10 mg-acetaminophen 325 mg tablet RxNorm: 003209 1-2 Tablet(s) QID as needed for pain MUST LAST 30 DAYS 06/19/2017 07/18/2017 Inactive (Response to an electronic controlled substance refill request - RxReferenceNumber: [id number]) hydrocodone 10 mg-acetaminophen 325 mg tablet RxNorm: 737469 1-2 Tablet(s) QID as needed for pain MUST LAST 30 DAYS 06/19/2017 06/18/2017 Inactive (Response to an electronic controlled substance refill request - RxReferenceNumber: [id number]) baclofen 20 mg tablet RxNorm: 256012 1 Tablet(s) PO TID as needed for muscle spasm 06/18/2017 08/20/2017 Inactive Medrol (Dustin) 4 mg tablets in a dose pack RxNorm: 913121 Tablet(s) PO As Directed 06/05/2017 07/18/2017 Inactive omeprazole 40 mg capsule,delayed release RxNorm: 807387 1 Capsu le(s) PO QD 04/20/2017 10/16/2017 Inactive Premarin 1.25 mg tablet RxNorm: 115849 1-2 Tablet(s) PO QD 04/11/20 17 05/15/2018 Inactive duloxetine 60 mg capsule,delayed release RxNorm: 095724 1 Capsu le(s) PO QD 04/11/2017 09/19/2017 Inactive furosemide 40 mg tablet RxNorm: 668335 1 Tablet(s) PO Q AM prn edema--take with potassium 04/11/2017 12/11/2017 Inactive Klor-Con 8 mEq tablet,extended release RxNorm: 034370 1 Tablet( s) PO BID 04/11/2017 01/14/2018 Inactive Lipitor 10 mg tablet RxNorm: 301453 1 Tablet(s) PO QHS 04/11/201702/2018 Inactive amlodipine 5 mg-benazepril 20 mg capsule RxNorm: 886350 1 Capsu le(s) PO QD 04/11/2017 01/29/2018 Inactive allopurinol 300 mg tablet RxNorm: 260736 1 Tablet(s) PO QD 04/11/20 17 01/14/2018 Inactive clonidine HCl 0.1 mg tablet RxNorm: 041961 1 Tablet(s) PO QID 04/0508/19/2017 Inactive baclofen 20 mg tablet RxNorm: 475173 1 Tablet(s) PO TID as needed for muscle spasm 04/02/2017 06/18/2017 Inactive Premarin 1.25 mg tablet RxNorm: 677333 1-2 Tablet(s) PO QD 03/20/20 17 04/10/2017 Inactive hydrocodone 10 mg-acetaminophen 325 mg tablet RxNorm: 313478 1-2 Tablet(s) QID as needed for pain MUST LAST 30 DAYS 03/14/2017 01/21/2019 Inactive (Response to an electronic controlled substance refill request - RxReferenceNumber: [id number]) metoprolol tartrate 100 mg tablet RxNorm: 454974 1 Tablet(s) PO BID 02/12/2017 08/20/2017 Inactive hydrocodone 10 mg-acetaminophen 325 mg tablet RxNorm: 851943 1-2 Tablet(s) QID as needed for pain MUST LAST 30 DAYS 02/08/2017 03/09/2017 Inactive (Response to an electronic controlled substance refill request - RxReferenceNumber: [id number]) metoprolol tartrate 100 mg tablet RxNorm: 300267 TAKE O NE TABLET BY MOUTH TWICE A DAY 01/11/2017 02/12/2017 Inactive metoprolol tartrate 100 mg tablet RxNorm: 797041 1 Tablet(s) PO BID 12/18/2016 12/17/2016 Inactive metoprolol tartrate 100 mg tablet RxNorm: 478160 1 Tablet(s) PO BID 12/18/2016 01/10/2017 Inactive furosemide 40 mg tablet RxNorm: 776226 1 Tablet(s) PO Q AM prn edema--take with potassium 12/13/2016 02/10/2017 Inactive amitriptyline 100 mg tablet RxNorm: 662728 1 Tablet(s) PO QHS 11/2812/12/2016 Inactive baclofen 20 mg tablet RxNorm: 621875 1 Tablet(s) PO TID as needed for muscle spasm 11/14/2016 04/01/2017 Inactive triamterene 75 mg-hydrochlorothiazide 50 mg tablet RxNorm: 3 58433 1 Tablet(s) PO QD 11/14/2016 11/13/2016 Inactive metolazone 2.5 mg tablet RxNorm: 294074 TAKE ONE TABLET BY MOUTH DAILY NEEDED FOR EDEMA 11/14/2016 12/12/2016 Inactive triamterene 75 mg-hydrochlorothiazide 50 mg tablet RxNorm: 3 81526 1 Tablet(s) PO QD 11/14/2016 07/18/2017 Inactive amitriptyline 50 mg tablet RxNorm: 572850 TAKE ONE TABL ET BY MOUTH AT BEDTIME NEEDED FOR SLEEP 11/14/2016 11/27/2016 Inactive Cymbalta 60 mg capsule,delayed release RxNorm: 340200 1 Capsule (s) PO QHS 11/14/2016 12/12/2016 Inactive clonidine HCl 0.1 mg tablet RxNorm: 214518 1 Tablet(s) PO QID 11/1304/04/2017 Inactive amitriptyline 50 mg tablet RxNorm: 634823 1 Tablet(s) P O QHS as needed for sleep 11/01/2016 11/27/2016 Inactive duloxetine 60 mg capsule,delayed release RxNorm: 130742 TAKE ONE CAPSULE BY MOUTH DAILY 10/20/2016 01/17/2017 Inactive allopurinol 300 mg tablet RxNorm: 875797 TAKE ONE TABLET BY LOPEZ TH DAILY 10/20/2016 01/16/2017 Inactive Lyrica 75 mg capsule RxNorm: 775864 TAKE ONE CAPSULE BY MOUTH EVERY NIGHT AT BEDTIME 10/20/2016 12/10/2016 Inactive Klor-Con 8 mEq tablet,extended release RxNorm: 313552 T FARRUKH ONE TABLET BY MOUTH TWICE A DAY 10/20/2016 01/17/2017 Inactive Celebrex 200 mg capsule RxNorm: 545825 TAKE ONE CAPSULE BY MOUT H TWICE A DAY 10/20/2016 07/18/2017 Inactive Bystolic 10 mg tablet RxNorm: 524932 TAKE ONE TABLET BY MOUTH EVERY NIGHT AT BEDTIME 10/20/2016 12/17/2016 Inactive amlodipine 5 mg-benazepril 20 mg capsule RxNorm: 925004 TAKE ONE CAPSULE BY MOUTH EVERY NIGHT AT BEDTIME -- TO REPLACE AMLODOPINE 10/20/20162016 Inactive Lipitor 10 mg tablet RxNorm: 332832 TAKE ONE TABLET BY MOUTH EVERY NIGHT AT BEDTIME 10/20/2016 01/17/2017 Inactive alprazolam 0.5 mg tablet RxNorm: 126207 3 Tablet(s) PO QHS as needed for sleep/anxiety 09/20/2016 10/31/2016 Inactive Tamiflu 75 mg capsule RxNorm: 938783 1 Capsule(s) PO QD 09/19/2016 Inactive Lyrica 75 mg capsule RxNorm: 024137 1 Capsule(s) PO QHS 09/19/2016 Inactive prednisone 20 mg tablet RxNorm: 674779 1 Tablet(s) PO QD 08/10/2016 1 10/17/2015 Inactive doxycycline hyclate 100 mg capsule RxNorm: 2972336 1 Capsule(s) PO BID 08/10/2016 08/19/2016 Inactive Medrol ([place]) 4 mg tablets in a dose pack RxNorm: 448191 Tablet(s) PO As Directed 07/31/2016 08/22/2016 Inactive Singulair 10 mg tablet RxNorm: 109289 TAKE ONE TABLET BY MOUTH JOSÉ Y 07/27/2016 07/18/2017 Inactive hydrocodone 10 mg-acetaminophen 325 mg tablet RxNorm: 486706 1-2 Tablet(s) QID as needed for pain MUST LAST 30 DAYS 07/26/2016 08/24/2016 Inactive (Response to an electronic controlled substance refill request - RxReferenceNumber: [id number]) alprazolam 0.5 mg tablet RxNorm: 905240 3 Tablet(s) PO QHS as needed for anxiety or sleep 07/26/2016 09/20/2016 Inactive clindamycin 300 mg capsule RxNorm: 732119 1 Capsule(s) PO TID 07/2007/29/2016 Inactive Diflucan 100 mg tablet RxNorm: 731524 1 Tablet(s) PO QD 07/20/2016 Inactive Levaquin 500 mg tablet RxNorm: 105955 1 Tablet(s) PO QD 07/17/2016 Inactive Levaquin 500 mg tablet RxNorm: 195629 1 Tablet(s) PO QD 07/10/2016 Inactive Levaquin 500 mg tablet RxNorm: 436096 1 Tablet(s) PO QD 07/10/2016 Inactive mupirocin 2 % topical ointment RxNorm: 018666 TOP Apply topically to affected areas twice daily 07/06/2016 09/18/2016 Inactive Singulair 10 mg tablet RxNorm: 309270 TAKE ONE TABLET BY MOUTH JOSÉ Y 06/21/2016 01/21/2019 Inactive alprazolam 0.5 mg tablet RxNorm: 158259 TAKE THREE TABL ETS BY MOUTH AT BEDTIME NEEDED FOR SLEEP OR STRESS 05/22/2016 06/20/2016 Inactive triamterene 75 mg-hydrochlorothiazide 50 mg tablet RxNorm: 3 16726 1 Tablet(s) PO QD 04/26/2016 10/21/2016 Inactive Premarin 1.25 mg tablet RxNorm: 133954 1-2 Tablet(s) PO QD 04/26/20 16 03/20/2017 Inactive Klor-Con 8 mEq tablet,extended release RxNorm: 124343 1 Tablet( s) PO BID 04/26/2016 10/19/2016 Inactive Celebrex 200 mg capsule RxNorm: 248477 1 Capsule(s) PO BID TAKE ONE CAPSULE BY MOUTH EVERY DAY 04/26/2016 10/19/2016 Inactive Lipitor 10 mg tablet RxNorm: 604980 1 Tablet(s) PO QHS 04/26/201605/2017 Inactive allopurinol 300 mg tablet RxNorm: 114768 1 Tablet(s) PO QD TAKE ONE TABLET BY MOUTH EVERY DAY 04/26/2016 10/19/2016 Inactive amlodipine 5 mg-benazepril 20 mg capsule RxNorm: 530600 1 Capsule(s) PO QHS replaces amlodopine 04/26/2016 10/19/2016 Inactive duloxetine 60 mg capsule,delayed release RxNorm: 618853 1 Capsu le(s) PO QD 04/26/2016 10/19/2016 Inactive Bystolic 10 mg tablet RxNorm: 414081 1 Tablet(s) PO QHS 04/26/2016 Inactive Singulair 10 mg tablet RxNorm: 057887 1 Tablet(s) PO QD TAKE ONE TABLET BY MOUTH DAILY 04/26/2016 06/20/2016 Inactive clonidine HCl 0.1 mg tablet RxNorm: 584733 1 Tablet(s) PO QID 04/2610/22/2016 Inactive hydrocodone 10 mg-acetaminophen 325 mg tablet RxNorm: 526287 1-2 Tablet(s) QID as needed for pain TAKE ONE TO TWO TABLETS BY MOUTH FOUR TIMES A DAY . MUST LAST 30 DAYS 03/31/2016 04/29/2016 Inactive (Response to an electronic controlled substance refill request - RxReferenceNumber: [id number]) Klor-Con 8 mEq tablet,extended release RxNorm: 770328 T FARRUKH ONE TABLET BY MOUTH TWICE A DAY 03/24/2016 04/22/2016 Inactive prednisone 20 mg tablet RxNorm: 735256 1 Tablet(s) PO QD 03/09/2016 0 03/08/2016 Inactive prednisone 20 mg tablet RxNorm: 117283 1 Tablet(s) PO QD 03/09/2016 0 03/13/2016 Inactive alprazolam 0.5 mg tablet RxNorm: 614788 3 Tablet(s) PO QHS as needed for sleep/stress 03/02/2016 01/21/2019 Inactive mupirocin 2 % topical ointment RxNorm: 515934 TOP twice daily to affected areas of face and neck 02/21/2016 04/25/2016 Inactive clonidine HCl 0.1 mg tablet RxNorm: 478530 TAKE ONE TAB LET BY MOUTH FOUR TIMES A DAY 02/15/2016 03/15/2016 Inactive clonidine HCl 0.1 mg tablet RxNorm: 231577 1 Tablet(s) PO QID 02/1404/25/2016 Inactive Premarin 1.25 mg tablet RxNorm: 675751 1-2 Tablet(s) PO QD 02/15/20 16 03/15/2016 Inactive Klor-Con 8 mEq tablet,extended release RxNorm: 329901 T FARRUKH ONE TABLET BY MOUTH TWICE A DAY 02/15/2016 03/15/2016 Inactive potassium chloride ER 20 mEq tablet,extended release(part/cr yst) RxNorm: 391706 2 Tablet(s) PO BID 02/15/2016 03/15/2016 Inactive Macrobid 100 mg capsule RxNorm: 266431 1 Capsule(s) PO BID 01/24/20 16 01/30/2016 Inactive prednisone 20 mg tablet RxNorm: 876325 Take 3tabs PO QD x 2 days, then 2 tabs PO QD x 2 days, then 1 tab PO QD x 2 days, then 1/2 tab PO QDy x 2 days 12/23/2015 04/25/2016 Inactive Klor-Con 8 mEq tablet,extended release RxNorm: 630288 T FARRUKH ONE TABLET BY MOUTH TWICE A DAY 12/20/2015 02/14/2016 Inactive alprazolam 1 mg tablet RxNorm: 433425 1 1/2 Tablet(s) PO QHS 201501/23/2016 Inactive nystatin 100,000 unit/gram topical cream RxNorm: 002495 APPLY TO AFFECTED AREA(S) TWO TIMES A DAY 11/30/2015 12/14/2015 Inactive Singulair 10 mg tablet RxNorm: 328879 TAKE ONE TABLET BY MOUTH JOSÉ Y 11/18/2015 04/25/2016 Inactive allopurinol 300 mg tablet RxNorm: 995531 1 Tablet(s) PO QD TAKE ONE TABLET BY MOUTH EVERY DAY 10/26/2015 04/22/2016 Inactive Singulair 10 mg tablet RxNorm: 952531 TAKE ONE TABLET BY MOUTH JOSÉ Y 10/26/2015 11/17/2015 Inactive duloxetine 60 mg capsule,delayed release RxNorm: 268144 1 Capsu le(s) PO QD 10/26/2015 04/22/2016 Inactive triamterene 75 mg-hydrochlorothiazide 50 mg tablet RxNorm: 3 29872 1 Tablet(s) PO QD 10/26/2015 11/14/2016 Inactive potassium chloride ER 20 mEq tablet,extended release(part/cr yst) RxNorm: 912243 2 Tablet(s) PO BID 10/26/2015 02/14/2016 Inactive Lipitor 10 mg tablet RxNorm: 427258 1 Tablet(s) PO QHS 10/26/2015 Inactive amlodipine 5 mg-benazepril 20 mg capsule RxNorm: 111011 1 Capsule(s) PO QHS replaces amlodopine 10/26/2015 04/22/2016 Inactive Bystolic 10 mg tablet RxNorm: 545921 1 Tablet(s) PO QHS 10/26/2015 Inactive amlodipine 5 mg-benazepril 20 mg capsule RxNorm: 708885 1 Capsule(s) PO QHS replaces amlodopine 10/06/2015 10/25/2015 Inactive amlodipine 5 mg tablet RxNorm: 134614 1 Tablet(s) PO QHS 09/30/2015 0 04/25/2016 Inactive metolazone 2.5 mg tablet RxNorm: 871665 TAKE ONE TABLET BY MOUTH DAILY NEEDED FOR EDEMA 09/30/2015 01/21/2019 Inactive duloxetine 60 mg capsule,delayed release RxNorm: 503882 1 Capsu le(s) PO QD 09/30/2015 10/25/2015 Inactive cephalexin 500 mg capsule RxNorm: 527349 1 Capsule(s) PO BID 201509/23/2015 Inactive mupirocin 2 % topical ointment RxNorm: 596386 TOP twice daily to affected areas of face and neck 09/14/2015 02/20/2016 Inactive baclofen 20 mg tablet RxNorm: 298791 1 Tablet(s) PO TID as needed for muscle spasm 09/01/2015 11/14/2016 Inactive clonidine HCl 0.1 mg tablet RxNorm: 967395 1 Tablet(s) PO QID 09/0102/14/2016 Inactive alprazolam 1 mg tablet RxNorm: 809110 1 1/2 Tablet(s) PO QHS 201409/09/2015 Inactive baclofen 20 mg tablet RxNorm: 547708 1 Tablet(s) PO TID as needed for muscle spasm 07/23/2015 09/01/2015 Inactive omeprazole 40 mg capsule,delayed release RxNorm: 912396 1 Capsu le(s) PO QD 07/23/2015 04/25/2016 Inactive alprazolam 1 mg tablet RxNorm: 849615 1 1/2 Tablet(s) PO QHS 201408/10/2015 Inactive Bystolic 10 mg tablet RxNorm: 914550 1 Tablet(s) PO BID 06/24/2015 Inactive allopurinol 300 mg tablet RxNorm: 890337 1 Tablet(s) PO QD TAKE ONE TABLET BY MOUTH EVERY DAY 06/23/2015 10/20/2015 Inactive alprazolam 1 mg tablet RxNorm: 876276 1 1/2 Tablet(s) PO QHS 201407/06/2015 Inactive clonidine HCl 0.1 mg tablet RxNorm: 905611 1 Tablet(s) PO QID 06/0209/01/2015 Inactive clonidine HCl 0.1 mg tablet RxNorm: 534551 1 Tablet(s) PO QID 06/0206/01/2015 Inactive Cymbalta 60 mg capsule,delayed release RxNorm: 249627 1 Capsule (s) PO QHS 06/02/2015 08/30/2015 Inactive Cymbalta 60 mg capsule,delayed release RxNorm: 541069 1 Capsule (s) PO QHS 06/02/2015 06/01/2015 Inactive clonidine HCl 0.1 mg tablet RxNorm: 846077 1 Tablet(s) PO TID 05/3106/01/2015 Inactive replaces 0.2mg dose metolazone 2.5 mg tablet RxNorm: 425462 TAKE ONE TABLET BY MOUTH DAILY NEEDED FOR EDEMA 05/21/2015 06/19/2015 Inactive Singulair 10 mg tablet RxNorm: 667550 TAKE ONE TABLET BY MOUTH JOSÉ Y 05/21/2015 10/17/2015 Inactive Cymbalta 30 mg capsule,delayed release RxNorm: 746798 1 Capsule (s) PO QHS 05/20/2015 11/14/2016 Inactive betamethasone valerate 0.1 % topical cream RxNorm: 349339 Appli cation TOP BID 05/10/2015 04/25/2016 Inactive Bactroban 2 % topical ointment RxNorm: 485985 Application TOP BID 0 05/10/2015 06/20/2015 Inactive baclofen 20 mg tablet RxNorm: 720080 1 Tablet(s) PO TID as needed 0 04/26/2015 07/23/2015 Inactive Lipitor 10 mg tablet RxNorm: 376989 1 Tablet(s) PO QHS 04/26/201508/2016 Inactive clonidine HCl 0.1 mg tablet RxNorm: 998369 1 Tablet(s) PO TID 04/2605/30/2015 Inactive replaces 0.2mg dose Klor-Con 8 mEq tablet,extended release RxNorm: 204648 1 Tablet( s) PO BID 04/26/2015 04/25/2016 Inactive metolazone 2.5 mg tablet RxNorm: 991125 1 Tablet(s) PO QD as ne eded for edema 04/26/2015 04/25/2015 Inactive triamterene 75 mg-hydrochlorothiazide 50 mg tablet RxNorm: 3 98647 1 Tablet(s) PO QD 04/26/2015 10/22/2015 Inactive Premarin 1.25 mg tablet RxNorm: 484839 1-2 Tablet(s) PO QD 04/26/20 15 10/22/2015 Inactive Bystolic 10 mg tablet RxNorm: 265019 1 Tablet(s) PO QAM TAKE ONE TABLET BY MOUTH EVERY MORNING 04/23/2015 06/23/2015 Inactive clonidine HCl 0.1 mg tablet RxNorm: 991632 1 Tablet(s) PO TID 03/2304/25/2015 Inactive replaces 0.2mg dose nystatin 100,000 unit/gram topical cream RxNorm: 705596 Applica tion TOP BID 03/23/2015 06/20/2015 Inactive baclofen 20 mg tablet RxNorm: 404146 1 Tablet(s) PO TID as needed 0 03/23/2015 04/25/2015 Inactive Premarin 1.25 mg tablet RxNorm: 095529 1-2 Tablet(s) PO QD 03/23/20 15 04/25/2015 Inactive Klor-Con 8 mEq tablet,extended release RxNorm: 611376 1 Tablet( s) PO BID 03/23/2015 04/25/2015 Inactive cefdinir 300 mg capsule RxNorm: 175309 2 Capsule(s) PO QD 03/16/2015 03/25/2015 Inactive baclofen 20 mg tablet RxNorm: 631560 1 Tablet(s) PO TID as needed 0 03/02/2015 03/22/2015 Inactive allopurinol 300 mg tablet RxNorm: 779407 1 Tablet(s) PO QD TAKE ONE TABLET BY MOUTH EVERY DAY 02/22/2015 05/22/2015 Inactive Klor-Con M20 mEq tablet,extended release RxNorm: 170665 2 Tablet(s) PO BID to use with lasix 02/22/2015 06/20/2015 Inactive clonidine HCl 0.1 mg tablet RxNorm: 881718 1 Tablet(s) PO TID 02/1903/22/2015 Inactive replaces 0.2mg dose Lipitor 10 mg tablet RxNorm: 897162 1 Tablet(s) PO QHS 01/20/201506/2015 Inactive Lipitor 10 mg tablet RxNorm: 662578 1 Tablet(s) PO QHS 01/20/2015 Inactive Singulair 10 mg tablet RxNorm: 917951 1 Tablet(s) PO QD TAKE ONE TABLET BY MOUTH EVERY DAY 11/20/2014 05/18/2015 Inactive Lipitor 10 mg tablet RxNorm: 382177 1 Tablet(s) PO QHS 11/20/201408/2015 Inactive allopurinol 300 mg tablet RxNorm: 108216 1 Tablet(s) PO QD TAKE ONE TABLET BY MOUTH EVERY DAY 11/20/2014 02/16/2015 Inactive Bystolic 10 mg tablet RxNorm: 335356 1 Tablet(s) PO QAM TAKE ONE TABLET BY MOUTH EVERY MORNING 11/20/2014 04/22/2015 Inactive Klor-Con 8 mEq tablet,extended release RxNorm: 335041 1 Tablet( s) PO BID 11/20/2014 02/17/2015 Inactive baclofen 20 mg tablet RxNorm: 688149 1 Tablet(s) PO TID as needed 0 11/20/2014 01/21/2019 Inactive baclofen 20 mg tablet RxNorm: 018409 1 Tablet(s) PO TID as needed 0 10/27/2014 11/19/2014 Inactive baclofen 20 mg tablet RxNorm: 480066 1 Tablet(s) PO TID as needed 0 10/26/2014 03/01/2015 Inactive allopurinol 300 mg tablet RxNorm: 483694 1 Tablet(s) PO QD TAKE ONE TABLET BY MOUTH EVERY DAY 10/26/2014 11/20/2014 Inactive Bystolic 10 mg tablet RxNorm: 530318 1 Tablet(s) PO QAM TAKE ONE TABLET BY MOUTH EVERY MORNING 10/26/2014 11/20/2014 Inactive clonidine HCl 0.1 mg tablet RxNorm: 310185 1 Tablet(s) PO TID 09/2805/27/2019 Inactive replaces 0.2mg dose clonidine HCl 0.1 mg tablet RxNorm: 939161 1 Tablet(s) PO TID 09/2802/18/2015 Inactive replaces 0.2mg dose baclofen 20 mg tablet RxNorm: 298829 1 Tablet(s) PO TID as needed 1 11/01/2013 08/30/2014 Inactive Lipitor 10 mg tablet RxNorm: 419803 1 Tablet(s) PO QHS 08/31/2014 Inactive baclofen 20 mg tablet RxNorm: 906828 1 Tablet(s) PO TID as needed 1 11/01/2013 10/26/2014 Inactive triamterene 75 mg-hydrochlorothiazide 50 mg tablet RxNorm: 3 54714 1 Tablet(s) PO QD 08/31/2014 02/26/2015 Inactive Klor-Con 8 mEq tablet,extended release RxNorm: 225435 1 Tablet( s) PO BID 08/31/2014 11/20/2014 Inactive baclofen 20 mg tablet RxNorm: 632121 1 Tablet(s) PO TID as needed 1 09/30/2013 10/25/2014 Inactive baclofen 20 mg tablet RxNorm: 763808 1 Tablet(s) PO TID as needed 1 09/30/2013 08/31/2014 Inactive omeprazole 40 mg capsule,delayed release RxNorm: 267946 1 Capsu le(s) PO QD 07/21/2014 07/23/2015 Inactive Flonase 50 mcg/actuation nasal spray,suspension RxNorm: 8963 23 1 [place] NASAL BID 07/15/2014 04/09/2017 Inactive hydrocodone 10 mg-acetaminophen 325 mg tablet RxNorm: 307583 1-2 Tablet(s) QID as needed for pain TAKE ONE TO TWO TABLETS BY MOUTH FOUR TIMES A DAY . MUST LAST 30 DAYS 06/30/2014 07/27/2014 Inactive (Response to an electronic controlled substance refill request - RxReferenceNumber: [id number]) baclofen 20 mg tablet RxNorm: 401816 1 Tablet(s) PO TID as needed 1 07/31/2014 Inactive Singulair 10 mg tablet RxNorm: 336950 1 Tablet(s) PO QD TAKE ONE TABLET BY MOUTH EVERY DAY 05/25/2014 11/20/2014 Inactive Bystolic 10 mg tablet RxNorm: 551892 TAKE ONE TABLET BY MOUTH E VERY MORNING 05/25/2014 09/21/2014 Inactive allopurinol 300 mg tablet RxNorm: 893418 1 Tablet(s) PO QD TAKE ONE TABLET BY MOUTH EVERY DAY 05/25/2014 10/21/2014 Inactive baclofen 20 mg tablet RxNorm: 683734 1 Tablet(s) PO TID as needed 0 05/25/2014 06/29/2014 Inactive allopurinol 300 mg tablet RxNorm: 297679 TAKE ONE TABLET BY LOPEZ TH EVERY DAY 05/25/2014 09/21/2014 Inactive Singulair 10 mg tablet RxNorm: 782920 1 Tablet(s) PO QD TAKE ONE TABLET BY MOUTH EVERY DAY 05/25/2014 05/24/2014 Inactive Bystolic 10 mg tablet RxNorm: 027571 1 Tablet(s) PO QAM TAKE ONE TABLET BY MOUTH EVERY MORNING 05/25/2014 10/21/2014 Inactive metolazone 2.5 mg tablet RxNorm: 919011 1 Tablet(s) PO QD as ne eded for edema 05/18/2014 04/25/2015 Inactive Lasix 40 mg tablet RxNorm: 744892 1 Tablet(s) PO QAM s hould take potassium supplementation with this medication 05/14/2014 05/17/2014 Inactive hydrocodone 10 mg-acetaminophen 325 mg tablet RxNorm: 204537 1-2 Tablet(s) QID as needed for pain TAKE ONE TO TWO TABLETS BY MOUTH FOUR TIMES A DAY . MUST LAST 30 DAYS 05/07/2014 06/05/2014 Inactive (Response to an electronic controlled substance refill request - RxReferenceNumber: [id number]) alprazolam 0.5 mg tablet RxNorm: 840331 TAKE ONE TABLET BY MOUTH TWICE A DAY , MUST LAST 30 DAYS 05/07/2014 05/22/2016 Inactive (Response to a n electronic controlled substance refill request - RxReferenceNumber: [id number]) diclofenac sodium 75 mg tablet,delayed release RxNorm: 10019 6 1 Tablet(s) PO BID for pain 04/24/2014 07/20/2014 Inactive Celebrex 200 mg capsule RxNorm: 503641 TAKE ONE CAPSULE BY MOUT H EVERY DAY 04/24/2014 07/20/2014 Inactive alprazolam 0.5 mg tablet RxNorm: 288007 TAKE ONE TABLET BY MOUTH TWICE A DAY , MUST LAST 30 DAYS 03/24/2014 04/22/2014 Inactive (Response to a n electronic controlled substance refill request - RxReferenceNumber: [id number]) diclofenac sodium 75 mg tablet,delayed release RxNorm: 26992 6 1 Tablet(s) PO BID for pain 03/24/2014 04/24/2014 Inactive clonidine HCl 0.1 mg tablet RxNorm: 398515 1 Tablet(s) PO TID 03/2409/28/2014 Inactive replaces 0.2mg dose Klor-Con 8 mEq tablet,extended release RxNorm: 799529 1 Tablet( s) PO BID 02/26/2014 08/31/2014 Inactive diclofenac sodium 75 mg tablet,delayed release RxNorm: 99006 6 1 Tablet(s) PO BID for pain 02/25/2014 03/24/2014 Inactive hydrocodone 10 mg-acetaminophen 325 mg tablet RxNorm: 709685 1-2 Tablet(s) QID as needed for pain TAKE ONE TO TWO TABLETS BY MOUTH FOUR TIMES A DAY . MUST LAST 30 DAYS 02/25/2014 03/26/2014 Inactive (Response to an electronic controlled substance refill request - RxReferenceNumber: [id number]) alprazolam 0.5 mg tablet RxNorm: 727857 Tablet(s) PO BI D as needed for anxiety TAKE ONE TABLET BY MOUTH TWICE A DAY , MUST LAST 30 DAYS 02/25/2014 Inactive (Response to an electronic controlled [place] bstance refill request - RxReferenceNumber: [id number]) [AttnRPh: Saving apply/adjudicate RxGRP:SG20 RxBIN:[id number] RxPCN: ID#:[id number]] alprazolam 0.5 mg tablet RxNorm: 893994 Tablet(s) TAKE ONE TABLET BY MOUTH TWICE A DAY , MUST LAST 30 DAYS 01/27/2014 02/24/2014 Inactive (Respo nse to an electronic controlled substance refill request - RxReferenceNumber: [id number]) [AttnRPh: Saving apply/adjudicate RxGRP:SG20 RxBIN:[id number] RxPCN: ID#:[id number]] hydrocodone 10 mg-acetaminophen 325 mg tablet RxNorm: 647146 1-2 Tablet(s) QID as needed for pain TAKE ONE TO TWO TABLETS BY MOUTH FOUR TIMES A DAY . MUST LAST 30 DAYS 01/27/2014 02/24/2014 Inactive (Response to an electronic controlled substance refill request - RxReferenceNumber: [id number]) alprazolam 0.5 mg tablet RxNorm: 518150 TAKE ONE TABLET BY MOUTH TWICE A DAY , MUST LAST 30 DAYS 01/27/2014 01/26/2014 Inactive (Response to a n electronic controlled substance refill request - RxReferenceNumber: [id number]) Premarin 1.25 mg tablet RxNorm: 712335 1-2 Tablet(s) PO QD 01/28/20 14 07/25/2014 Inactive alprazolam 0.5 mg tablet RxNorm: 576283 TAKE ONE TABLET BY MOUTH TWICE A DAY , MUST LAST 30 DAYS 01/27/2014 01/27/2014 Inactive (Response to a n electronic controlled substance refill request - RxReferenceNumber: [id number]) hydrocodone 10 mg-acetaminophen 325 mg tablet RxNorm: 227954 TAKE ONE TO TWO TABLETS BY MOUTH FOUR TIMES A DAY . MUST LAST 30 DAYS 01/27/20142013 Inactive (Response to an electronic controlled [place] bstance refill request - RxReferenceNumber: [id number]) Celebrex 200 mg capsule RxNorm: 995774 1 Capsule(s) PO QD TAKE ONE CAPSULE BY MOUTH EVERY DAY 12/29/2013 04/27/2014 Inactive hydrocodone 10 mg-acetaminophen 325 mg tablet RxNorm: 223634 1-2 Tablet(s) PO QID as needed for severe pain 12/29/2013 01/27/2014 Inactive allopurinol 300 mg tablet RxNorm: 191066 1 Tablet(s) PO QD TAKE ONE TABLET BY MOUTH EVERY DAY 12/29/2013 05/24/2014 Inactive alprazolam 0.5 mg tablet RxNorm: 182683 TAKE ONE TABLET BY MOUTH TWICE A DAY , MUST LAST 30 DAYS 12/29/2013 01/27/2014 Inactive (Response to a n electronic controlled substance refill request - RxReferenceNumber: [id number]) Celebrex 200 mg capsule RxNorm: 477528 1 Capsule(s) PO QD TAKE ONE CAPSULE BY MOUTH EVERY DAY 12/29/2013 12/29/2013 Inactive Bystolic 10 mg tablet RxNorm: 166439 1 Tablet(s) PO QAM TAKE ONE TABLET BY MOUTH EVERY MORNING 12/29/2013 05/24/2014 Inactive Bystolic 10 mg tablet RxNorm: 664730 1 Tablet(s) PO QAM TAKE ONE TABLET BY MOUTH EVERY MORNING 12/29/2013 12/29/2013 Inactive Singulair 10 mg tablet RxNorm: 282226 1 Tablet(s) PO QD TAKE ONE TABLET BY MOUTH EVERY DAY 12/29/2013 05/25/2014 Inactive hydrocodone 10 mg-acetaminophen 325 mg tablet RxNorm: 084330 TAKE ONE TO TWO TABLETS BY MOUTH FOUR TIMES A DAY . MUST LAST 30 DAYS 12/29/20132013 Inactive (Response to an electronic controlled [place] bstance refill request - RxReferenceNumber: [id number]) Trazadone 75mg Tablet RxNorm: 1 Tablet(s) PO QHS as needed 03/23/2014 Inactive Trazadone 75mg Tablet RxNorm: 1 Tablet(s) PO QHS 12/24/20132014 Inactive Soma 350 mg tablet RxNorm: 359539 Tablet(s) PO TAKE ON E TABLET BY MOUTH THREE TIMES A DAY NEEDED FOR MUSCLE SPASMS. THIS MUST LAST 30 DAYS BETWEEN REFILLS. 12/10/2013 12/22/2013 Inactive (Appended: Cont rolled substance eRx refill - RxReferenceNumber: [id number]) diclofenac sodium 75 mg tablet,delayed release RxNorm: 78898 6 1 Tablet(s) PO BID for pain 12/10/2013 02/24/2014 Inactive allopurinol 300 mg tablet RxNorm: 299667 1 Tablet(s) PO QD 11/20/19 14 12/29/2013 Inactive alprazolam 0.5 mg tablet RxNorm: 985985 2 Tablet(s) PO BID 11/13/19 14 12/29/2013 Inactive prn clonidine 0.1 mg tablet RxNorm: 618016 1 Tablet(s) PO TID 11/12/2013 02/09/2014 Inactive replaces 0.2mg dose Klor-Con M20 mEq tablet,extended release RxNorm: 060552 2 Tablet(s) PO BID to use with lasix 11/12/2013 05/10/2014 Inactive Singulair 10 mg tablet RxNorm: 849806 1 Tablet(s) PO QD 11/12/2013 Inactive hydrocodone 10 mg-acetaminophen 325 mg tablet RxNorm: 168739 1-2 Tablet(s) PO QID as needed for severe pain 11/12/2013 12/28/2013 Inactive Bystolic 10 mg tablet RxNorm: 157676 1 Tablet(s) PO QAM 11/12/2013 Inactive Soma 350 mg tablet RxNorm: 412091 Tablet(s) PO TAKE ON E TABLET BY MOUTH THREE TIMES A DAY NEEDED FOR MUSCLE SPASMS. THIS MUST LAST 30 DAYS BETWEEN REFILLS. 10/13/2013 12/10/2013 Inactive (Appended: Cont rolled substance eRx refill - RxReferenceNumber: [id number]) hydrocodone 10 mg-acetaminophen 325 mg tablet RxNorm: 503382 1-2 Tablet(s) PO QID as needed for severe pain 10/03/2013 11/11/2013 Inactive diclofenac sodium 75 mg tablet,delayed release RxNorm: 98204 8 1 Tablet(s) PO BID for pain 09/11/2013 12/10/2013 Inactive alprazolam 0.5 mg tablet RxNorm: 575624 1 Tablet(s) PO BID May refill on 04/26/13 09/01/2013 10/30/2013 Inactive prn hydrocodone 10 mg-acetaminophen 325 mg tablet RxNorm: 079820 1-2 Tablet(s) PO QID as needed for severe pain 09/01/2013 10/02/2013 Inactive triamterene 75 mg-hydrochlorothiazide 50 mg tablet RxNorm: 3 16043 1 Tablet(s) PO QD 08/04/2013 08/31/2014 Inactive cyclobenzaprine 10 mg tablet RxNorm: 097970 1 Tablet(s) PO TID prn spasm 08/04/2013 08/13/2013 Inactive clonidine 0.1 mg tablet RxNorm: 438979 1 Tablet(s) PO TID 08/04/2013 11/11/2013 Inactive replaces 0.2mg dose cyclobenzaprine 10 mg tablet RxNorm: 830431 1 Tablet(s) PO TID prn spasm 07/23/2013 08/01/2013 Inactive hydrocodone 10 mg-acetaminophen 325 mg tablet RxNorm: 855266 2 1-2 Tablet(s) PO QID as needed for severe pain 06/09/2013 08/07/2013 Inactive Singulair 10 mg tablet RxNorm: 524887 1 Tablet(s) PO QD 05/29/2013 Inactive Klor-Con 8 mEq tablet,extended release RxNorm: 998540 1 Tablet( s) PO BID 05/29/2013 02/26/2014 Inactive allopurinol 300 mg tablet RxNorm: 018753 1 Tablet(s) PO QD 05/29/20 13 11/19/2013 Inactive Bystolic 10 mg tablet RxNorm: 335688 1 Tablet(s) PO QAM take one daily in the morning. 05/29/2013 11/11/2013 Inactive scopolamine 1.5 mg 72 hr Transderm Patch RxNorm: 823426 Application TD Q72H for motion sickness 05/26/2013 07/22/2013 Inactive Soma 350 mg tablet RxNorm: 747600 1 Tablet(s) PO TID as needed for spasm 05/19/2013 10/13/2013 Inactive diclofenac sodium 75 mg tablet,delayed release RxNorm: 99233 8 1 Tablet(s) PO BID for pain 05/14/2013 07/22/2013 Inactive allopurinol 300 mg tablet RxNorm: 251983 1 Tablet(s) PO QD 04/25/20 13 05/28/2013 Inactive alprazolam 0.5 mg tablet RxNorm: 167560 1 Tablet(s) PO BID May refill on 04/26/13 04/25/2013 06/23/2013 Inactive prn Celebrex 200 mg capsule RxNorm: 139071 1 Capsule(s) PO QD 04/16/2013 12/29/2013 Inactive alprazolam 0.5 mg tablet RxNorm: 270277 1 Tablet(s) PO BID May refill on 04/26/13 04/16/2013 04/24/2013 Inactive prn Soma 350 mg tablet RxNorm: 368322 1 Tablet(s) PO TID as needed for spasm 04/16/2013 No Stop Date Active Lasix 40 mg tablet RxNorm: 202517 1 Tablet(s) PO QAM s hould take potassium supplementation with this medication 04/16/2013 06/14/2013 Inactive clonidine 0.1 mg tablet RxNorm: 383325 1 Tablet(s) PO TID 04/16/2013 08/03/2013 Inactive replaces 0.2mg dose prednisone 20 mg tablet RxNorm: 364890 1 Tablet(s) PO BID 04/16/2013 04/20/2013 Inactive diclofenac sodium 75 mg tablet,delayed release RxNorm: 84388 8 1 Tablet(s) PO BID for pain 04/14/2013 05/13/2013 Inactive hydrocodone 10 mg-acetaminophen 325 mg tablet RxNorm: 631965 2 1-2 Tablet(s) PO QID as needed for severe pain 04/14/2013 No Stop Date Active Lasix 40 mg tablet RxNorm: 089085 1 Tablet(s) PO QAM s hould take potassium supplementation with this medication 03/31/2013 04/15/2013 Inactive Celebrex 200 mg capsule RxNorm: 424222 1 Capsule(s) PO QD 03/31/2013 04/15/2013 Inactive alprazolam 0.5 mg tablet RxNorm: 901582 1 Tablet(s) PO BID 03/28/20 13 04/15/2013 Inactive prn hydrocodone 10 mg-acetaminophen 325 mg tablet RxNorm: 419659 2 1-2 Tablet(s) PO QID as needed for severe pain 03/10/2013 No Stop Date Active metformin ER 500 mg 24 hr tablet,extended release RxNorm: 86 1018 1 Tablet(s) PO QD 03/06/2013 07/22/2013 Inactive clindamycin 300 mg capsule RxNorm: 025306 2 Capsule(s) PO TID 03/0503/14/2013 Inactive Zaroxolyn 2.5 mg tablet RxNorm: 054118 1 Tablet(s) PO QAM 03/05/2013 05/19/2015 Inactive amlodipine 10 mg tablet RxNorm: 817981 1 Tablet(s) PO QD 03/03/2013 0 05/25/2013 Inactive Norvasc 10 mg tablet RxNorm: 734438 1 Tablet(s) PO QD 02/28/201307/11 Inactive Celebrex 200 mg capsule RxNorm: 001585 1 Capsule(s) PO QD 02/28/2013 03/30/2013 Inactive diclofenac sodium 75 mg tablet,delayed release RxNorm: 57456 8 1 Tablet(s) PO BID for pain 02/14/2013 03/15/2013 Inactive Soma 350 mg tablet RxNorm: 335312 1 Tablet(s) PO TID as needed for spasm 02/14/2013 No Stop Date Active hydrocodone 10 mg-acetaminophen 325 mg tablet RxNorm: 871227 2 1-2 Tablet(s) PO QID as needed for severe pain 02/14/2013 No Stop Date Active Norvasc 10 mg tablet RxNorm: 312393 1 Tablet(s) PO QD 02/10/201302/09 Inactive Celebrex 200 mg capsule RxNorm: 847392 1 Capsule(s) PO QD 01/27/2013 01/26/2013 Inactive Premarin 1.25 mg tablet RxNorm: 046185 1-2 Tablet(s) PO QD 01/28/20 13 06/25/2013 Inactive alprazolam 0.5 mg tablet RxNorm: 893125 1 Tablet(s) PO BID 01/28/20 13 02/25/2013 Inactive prn amlodipine 5 mg tablet RxNorm: 856843 1 Tablet(s) PO QD 01/27/2013 Inactive Celebrex 200 mg capsule RxNorm: 437705 1 Capsule(s) PO QD 01/27/2013 02/27/2013 Inactive gabapentin 600 mg tablet RxNorm: 241998 1 Tablet(s) PO QHS 01/16/20 13 07/22/2013 Inactive Soma 350 mg tablet RxNorm: 684325 1 Tablet(s) PO TID as needed for spasm 01/15/2013 No Stop Date Active hydrocodone 10 mg-acetaminophen 325 mg tablet RxNorm: 744033 2 1-2 Tablet(s) PO QID as needed for severe pain 01/15/2013 No Stop Date Active Soma 350 mg tablet RxNorm: 223998 1 Tablet(s) PO TID as needed for spasm 01/13/2013 No Stop Date Active alprazolam 0.5 mg tablet RxNorm: 758222 1 Tablet(s) PO BID 12/31/19 13 01/26/2013 Inactive prn diclofenac sodium 75 mg tablet,delayed release RxNorm: 73135 8 1 Tablet(s) PO BID for pain 12/09/2012 01/07/2013 Inactive gabapentin 600 mg tablet RxNorm: 764273 1 Tablet(s) PO QHS 12/10/19 13 01/07/2013 Inactive hydrocodone 10 mg-acetaminophen 325 mg tablet RxNorm: 217415 2 1-2 Tablet(s) PO QID as needed for severe pain 12/02/2012 No Stop Date Active Levaquin 750 mg tablet RxNorm: 534619 1 Tablet(s) PO QD 11/21/2012 Inactive Singulair 10 mg tablet RxNorm: 311184 1 Tablet(s) PO QD 11/11/2012 Inactive clonidine 0.2 mg tablet RxNorm: 262147 1 Tablet(s) PO TID 11/11/2012 04/15/2013 Inactive alprazolam 0.5 mg tablet RxNorm: 003349 1 Tablet(s) PO BID 11/12/19 13 12/10/2012 Inactive prn Klor-Con 8 mEq tablet,extended release RxNorm: 116933 1 Tablet( s) PO BID 11/11/2012 03/04/2013 Inactive hydrocodone 10 mg-acetaminophen 325 mg tablet RxNorm: 514979 2 1-2 Tablet(s) PO QID as needed for severe pain 11/06/2012 No Stop Date Active alprazolam 0.5 mg tablet RxNorm: 290039 1 Tablet(s) PO BID 10/15/19 13 11/10/2012 Inactive prn hydrocodone-acetaminophen 10 mg-325 mg tablet RxNorm: 366531 2 1-2 Tablet(s) PO QID as needed for severe pain 10/10/2012 10/09/2012 Inactive allopurinol 300 mg tablet RxNorm: 228665 1 Tablet(s) PO QD 09/20/19 13 12/18/2012 Inactive alprazolam 0.5 mg tablet RxNorm: 077032 1 Tablet(s) PO BID 09/17/19 13 10/14/2012 Inactive prn hydrocodone-acetaminophen 10 mg-325 mg tablet RxNorm: 812505 2 1-2 Tablet(s) PO QID as needed for severe pain 08/22/2012 08/21/2012 Inactive Norvasc 10 mg tablet RxNorm: 173575 1 Tablet(s) PO QD 08/12/201201/10 Inactive Premarin 1.25 mg tablet RxNorm: 643064 1-2 Tablet(s) PO QD 07/30/20 12 12/26/2012 Inactive alprazolam 0.5 mg tablet RxNorm: 422989 1 Tablet(s) PO BID 07/29/20 12 08/27/2012 Inactive prn Klor-Con 8 mEq tablet,extended release RxNorm: 383571 1 Tablet( s) PO BID 07/29/2012 11/10/2012 Inactive hydrocodone-acetaminophen 10 mg-325 mg tablet RxNorm: 955185 2 1-2 Tablet(s) PO QID as needed for severe pain 07/29/2012 No Stop Date Active Premarin 1.25 mg tablet RxNorm: 050738 1-2 Tablet(s) PO QD 07/29/2007/29/2012 Inactive clonidine 0.2 mg tablet RxNorm: 885257 1 Tablet(s) PO TID 07/29/2012 10/28/2012 Inactive ketorolac 10 mg tablet RxNorm: 681084 1 Tablet(s) PO QID prn mitul joseph 07/18/2012 No Stop Date Active hydrocodone-acetaminophen 10 mg-325 mg tablet RxNorm: 122708 2 1-2 Tablet(s) PO QID as needed for severe pain 07/03/2012 No Stop Date Active amlodipine 5 mg tablet RxNorm: 949975 1 Tablet(s) PO QD 07/02/2012 Inactive allopurinol 300 mg tablet RxNorm: 375929 1 Tablet(s) PO QD 07/02/20 12 09/19/2012 Inactive Celebrex 200 mg capsule RxNorm: 354583 1 Capsule(s) PO QD for j oint pain 06/26/2012 10/23/2012 Inactive diclofenac sodium 75 mg tablet,delayed release RxNorm: 39644 8 1 Tablet(s) PO BID for pain 06/19/2012 09/16/2012 Inactive hydrocodone-acetaminophen 10 mg-325 mg tablet RxNorm: 300616 2 1-2 Tablet(s) PO QID as needed for severe pain 06/10/2012 No Stop Date Active alprazolam 0.5 mg tablet RxNorm: 121781 1 Tablet(s) PO BID 06/03/20 12 07/02/2012 Inactive prn ketorolac 10 mg tablet RxNorm: 617929 1 Tablet(s) PO Q8H 05/27/2012 0 01/21/2019 Inactive as needed for headache hydrocodone-acetaminophen 10 mg-325 mg tablet RxNorm: 574007 2 1-2 Tablet(s) PO QID as needed for severe pain 05/15/2012 No Stop Date Active allopurinol 300 mg tablet RxNorm: 264386 1 Tablet(s) PO QD 05/14/20 12 06/12/2012 Inactive allopurinol 300 mg tablet RxNorm: 205849 1 Tablet(s) PO QD 05/14/20 12 05/13/2012 Inactive amlodipine 5 mg tablet RxNorm: 547218 1 Tablet(s) PO QD 05/01/2012 Inactive amlodipine 5 mg Tab RxNorm: 609754 1 Tablet(s) PO QD 05/01/201204/30 Inactive Celebrex 200 mg capsule RxNorm: 461401 1 Capsule(s) PO QD for j oint pain 05/01/2012 06/25/2012 Inactive Singulair 10 mg tablet RxNorm: 784109 1 Tablet(s) PO QD 05/01/2012 Inactive alprazolam 0.5 mg tablet RxNorm: 339675 1 Tablet(s) PO BID 05/01/20 12 05/30/2012 Inactive prn Celebrex 200 mg Cap RxNorm: 929018 1 Capsule(s) PO QD for joint radu n 05/01/2012 04/30/2012 Inactive hydrocodone-acetaminophen 10 mg-325 mg tablet RxNorm: 051882 2 1-2 Tablet(s) PO QID as needed for severe pain 04/19/2012 No Stop Date Active Lasix 40 mg tablet RxNorm: 182314 1 Tablet(s) PO QAM s hould take potassium supplementation with this medication 04/05/2012 06/03/2012 Inactive alprazolam 0.5 mg Tab RxNorm: 362936 1 Tablet(s) PO BID 04/05/2012 Inactive prn hydrocodone-acetaminophen 10 mg-325 mg Tab RxNorm: 3936917 1-2 Tablet(s) PO QID as needed for severe pain 03/25/2012 03/24/2012 Inactive clonidine 0.2 mg Tab RxNorm: 812506 1 Tablet(s) PO TID 03/08/2012 Inactive alprazolam 0.5 mg Tab RxNorm: 412678 1 Tablet(s) PO BID 03/08/2012 Inactive prn Soma 350 mg tablet RxNorm: 838825 1 Tablet(s) PO TID for spasm 02/0903/18/2012 Inactive clonidine 0.2 mg tablet RxNorm: 319934 1 Tablet(s) PO TID 03/08/2012 07/28/2012 Inactive Celebrex 200 mg Cap RxNorm: 120270 1 Capsule(s) PO QD for joint radu n 03/01/2012 04/29/2012 Inactive amlodipine 5 mg Tab RxNorm: 811036 1 Tablet(s) PO QD 02/26/201202/24 Inactive amlodipine 5 mg Tab RxNorm: 430037 1 Tablet(s) PO QD 02/26/201204/25 Inactive Bactroban 2 % Ointment RxNorm: 993711 Application TOP QID to sores 02/23/2012 No Stop Date Active amlodipine 2.5 mg tablet RxNorm: 479830 1 Tablet(s) PO QHS 02/20/20 12 02/25/2012 Inactive doxycycline hyclate 100 mg Cap RxNorm: 2005659 1 Capsule(s) PO BID 02/20/2012 02/29/2012 Inactive hydrocodone-acetaminophen 10 mg-325 mg Tab RxNorm: 6528127 1-2 T ablet(s) PO QID 02/08/2012 No Stop Date Active alprazolam 0.5 mg Tab RxNorm: 111116 1 Tablet(s) PO BID 02/08/2012 Inactive prn Singulair 10 mg Tab RxNorm: 040316 1 Tablet(s) PO QD 02/08/201204/30 Inactive Soma 350 mg Tab RxNorm: 511804 1 Tablet(s) PO TID for spasm 012 03/07/2012 Inactive Soma 350 mg Tab RxNorm: 840138 1 Tablet(s) PO TID for spasm 012 02/05/2012 Inactive diclofenac sodium 75 mg tablet,delayed release RxNorm: 81954 8 1 Tablet(s) PO BID for pain 02/01/2012 03/18/2012 Inactive Celebrex 200 mg Cap RxNorm: 441346 1 Capsule(s) PO QD for joint radu n 01/30/2012 02/28/2012 Inactive Lasix 40 mg Tab RxNorm: 857739 1 Tablet(s) PO QAM 01/24/2012 03/18/20 12 Inactive potassium chloride ER 20 mEq tablet,extended release(part/cr yst) RxNorm: 534477 2 Tablet(s) PO BID 01/24/2012 02/22/2012 Inactive alprazolam 0.5 mg Tab RxNorm: 681139 1 Tablet(s) PO BID 01/11/2012 Inactive prn hydrocodone-acetaminophen 10 mg-325 mg Tab RxNorm: 8895873 1-2 T ablet(s) PO QID 01/11/2012 No Stop Date Active Ambien 10 mg Tab RxNorm: 897206 1 Tablet(s) PO QHS 01/11/2012 012 Inactive Klor-Con 8 mEq Tab RxNorm: 934740 1 Tablet(s) PO BID 01/11/201201/22 Inactive diclofenac sodium 75 mg Tab, Delayed Release RxNorm: 132873 1 Tablet(s) PO BID for pain 01/10/2012 01/31/2012 Inactive Ambien 10 mg Tab RxNorm: 111866 1 Tablet(s) PO QHS 12/11/2011 012 Inactive alprazolam 0.5 mg Tab RxNorm: 765063 1 Tablet(s) PO BID 12/11/2011 Inactive prn hydrocodone 10 mg-acetaminophen 325 mg tablet RxNorm: 245532 1-2 Tablet(s) PO TID 11/28/2011 No Stop Date Active as needed for pa in - Previous quantity #240, will start dosing for #180 in April 2011 per Doctor Appiah. Ambien 10 mg Tab RxNorm: 413798 1 Tablet(s) PO QHS 11/09/2011 012 Inactive alprazolam 0.5 mg Tab RxNorm: 347776 1 Tablet(s) PO BID 11/09/2011 Inactive prn hydrocodone-acetaminophen 10 mg-325 mg Tab RxNorm: 2874158 1-2 T ablet(s) PO TID 11/06/2011 No Stop Date Active as needed for pain - Previous quantity #240, will start dosing for #180 in April 2011 per Doctor Td. Singulair 10 mg Tab RxNorm: 149737 1 Tablet(s) PO QD 10/13/201110/12 Inactive Singulair 10 mg Tab RxNorm: 139290 1 Tablet(s) PO QD 10/13/201102/06 Inactive hydrocodone-acetaminophen 10 mg-325 mg Tab RxNorm: 1585479 1-2 T ablet(s) PO TID 10/10/2011 10/09/2011 Inactive as needed for pain - Previous quantity #240, will start dosing for #180 in April 2011 per Doctor Td. hydrocodone-acetaminophen 10 mg-325 mg Tab RxNorm: 6958729 1-2 T ablet(s) PO TID 10/09/2011 No Stop Date Active as needed for pain - Previous quantity #240, will start dosing for #180 in April 2011 per Doctor Td. Klor-Con 8 mEq Tab RxNorm: 987168 1 Tablet(s) PO BID 10/02/201101/09 Inactive triamterene 75 mg-hydrochlorothiazide 50 mg tablet RxNorm: 3 96648 1 Tablet(s) PO QD 09/14/2011 03/06/2013 Inactive Ambien 10 mg Tab RxNorm: 230507 1 Tablet(s) PO QHS 09/14/2011 012 Inactive hydrocodone-acetaminophen 10 mg-325 mg Tab RxNorm: 3448264 1-2 T ablet(s) PO TID 09/14/2011 No Stop Date Active as needed for pain - Previous quantity #240, will start dosing for #180 in April 2011 per Doctor Td. alprazolam 0.5 mg Tab RxNorm: 361872 1 Tablet(s) PO BID 09/14/2011 Inactive prn Zithromax 500 mg Tab RxNorm: 7559819 1 Tablet(s) PO QD 09/13/201106/2012 Inactive prednisone 20 mg Tab RxNorm: 043397 1 Tablet(s) PO BID 08/31/2011 Inactive Ambien 10 mg Tab RxNorm: 139336 1 Tablet(s) PO QHS 08/17/2011 011 Inactive hydrocodone-acetaminophen 10 mg-325 mg Tab RxNorm: 4269978 1-2 T ablet(s) PO TID 08/17/2011 No Stop Date Active as needed for pain - Previous quantity #240, will start dosing for #180 in April 2011 per Doctor Td. clonidine 0.2 mg Tab RxNorm: 874862 1 Tablet(s) PO TID 08/17/201112/2011 Inactive Ambien 10 mg Tab RxNorm: 626982 1 Tablet(s) PO QHS 08/17/2011 019 Inactive alprazolam 0.5 mg Tab RxNorm: 436615 1 Tablet(s) PO BID 08/17/2011 Inactive prn hydrocodone-acetaminophen 10 mg-325 mg Tab RxNorm: 1314042 1-2 T ablet(s) PO TID 08/17/2011 08/16/2011 Inactive as needed for pain - Previous quantity #240, will start dosing for #180 in April 2011 per Doctor Td. Singulair 10 mg Tab RxNorm: 203810 1 Tablet(s) PO QD 08/17/201108/16 Inactive Klor-Con 8 mEq Tab RxNorm: 261275 1 Tablet(s) PO QD 08/17/20112011 Inactive alprazolam 0.5 mg Tab RxNorm: 361912 1 Tablet(s) PO BID 07/20/2011 Inactive prn Ambien 10 mg Tab RxNorm: 870963 1 Tablet(s) PO QHS 07/20/2011 012 Inactive Singulair 10 mg Tab RxNorm: 577677 1 Tablet(s) PO QD 07/20/201107/19 Inactive Premarin 1.25 mg tablet RxNorm: 239912 2 Tablet(s) PO QD 07/20/2011 0 01/21/2019 Inactive Premarin 1.25 mg tablet RxNorm: 058766 1-2 Tablet(s) PO QD 07/20/20 11 12/16/2011 Inactive Premarin 1.25 mg Tab RxNorm: 916784 1-2 Tablet(s) PO QD 07/06/2011 Inactive alprazolam 0.5 mg Tab RxNorm: 774176 1 Tablet(s) PO BID 06/22/2011 Inactive prn alprazolam 0.5 mg Tab RxNorm: 687165 1 Tablet(s) PO BID 06/22/2011 Inactive prn Premarin 1.25 mg Tab RxNorm: 683071 1 Tablet(s) PO QD m ay do 90 day fill if desired 06/22/2011 07/05/2011 Inactive hydrocodone-acetaminophen 10 mg-325 mg Tab RxNorm: 2136261 1-2 T ablet(s) PO TID 06/22/2011 No Stop Date Active as needed for pain - Previous quantity #240, will start dosing for #180 in April 2011 per Doctor Td. clonidine 0.2 mg Tab RxNorm: 928349 1 Tablet(s) PO TID 05/25/201103/2011 Inactive triamterene-hydrochlorothiazide 75 mg-50 mg Tab RxNorm: 3108 18 1 Tablet(s) PO QD 05/25/2011 09/13/2011 Inactive alprazolam 0.5 mg Tab RxNorm: 982674 1 Tablet(s) PO BID 05/25/2011 Inactive prn hydrocodone-acetaminophen 10 mg-325 mg Tab RxNorm: 8916683 1-2 T ablet(s) PO TID 05/25/2011 No Stop Date Active as needed for pain - Previous quantity #240, will start dosing for #180 in April 2011 per Doctor Td. Robaxin-750 750 mg Tab RxNorm: 770711 2 Tablet(s) PO QHS 05/22/2011 1 Inactive prn spasm hydrocodone-acetaminophen 10 mg-325 mg Tab RxNorm: 0815142 1-2 T ablet(s) PO TID 04/26/2011 No Stop Date Active as needed for pain - Previous quantity #240, will start dosing for #180 in April 2011 per Doctor Td. alprazolam 0.5 mg Tab RxNorm: 766379 1 Tablet(s) PO BID 04/25/2011 Inactive prn Klor-Con 8 mEq Tab RxNorm: 714507 1 Tablet(s) PO QD 03/30/20112010 Inactive Klor-Con 8 mEq Tab RxNorm: 589031 1 Tablet(s) PO QD 03/29/20112010 Inactive hydrocodone-acetaminophen 10 mg-325 mg Tab RxNorm: 5844931 1-2 T ablet(s) PO TID 03/20/2011 04/25/2011 Inactive as needed for pain - Previous quantity #240, will start dosing for #180 in April 2011 per Doctor Td. alprazolam 0.5 mg Tab RxNorm: 400378 1 Tablet(s) PO BID prn 011 03/30/2011 Inactive Ambien 10 mg Tab RxNorm: 301455 1 Tablet(s) PO QHS 03/01/2011 011 Inactive cyclobenzaprine 10 mg Tab RxNorm: 939252 1 Tablet(s) PO TID 011 03/18/2012 Inactive cyclobenzaprine 10 mg Tab RxNorm: 955082 1 Tablet(s) PO TID 011 01/08/2011 Inactive cyclobenzaprine 10 mg Tab RxNorm: 965952 1 Tablet(s) PO TID 011 12/20/2010 Inactive terbinafine 250 mg Tab RxNorm: 684929 1 Tablet(s) PO QD 12/12/2010 Inactive triamterene-hydrochlorothiazide 75 mg-50 mg Tab RxNorm: 3108 18 1 Tablet(s) PO QD 12/07/2010 06/04/2011 Inactive Klor-Con 8 8 mEq Tab RxNorm: 768787 1 Tablet(s) PO QD 12/07/201001/08 Inactive Premarin 1.25 mg Tab RxNorm: 422771 2 Tablet(s) PO QD 12/07/201001/08 Inactive clonidine 0.2 mg Tab RxNorm: 171742 1 Tablet(s) PO TID 12/07/2010 Inactive hydrocodone-acetaminophen 7.5 mg-650 mg Tab RxNorm: 654559 1 Ta blet(s) PO Q4H 12/05/2010 01/21/2019 Inactive hydrocodone-acetaminophen 7.5 mg-650 mg Tab RxNorm: 039183 1 Ta blet(s) PO Q4H 10/26/2010 11/14/2010 Inactive hydrocodone-acetaminophen 7.5 mg-650 mg Tab RxNorm: 687702 1 Ta blet(s) PO Q4H 10/13/2010 10/25/2010 Inactive hydrocodone-acetaminophen 7.5 mg-650 mg Tab RxNorm: 528033 1 Ta blet(s) PO Q4H 09/15/2010 09/12/2010 Inactive alprazolam 0.5 mg Tab RxNorm: 695083 1 Tablet(s) PO BID prn 011 09/12/2010 Inactive terbinafine 250 mg Tab RxNorm: 742696 1 Tablet(s) PO QD 09/05/2010 Inactive hydrocodone-acetaminophen 7.5 mg-650 mg Tab RxNorm: 602734 1 Ta blet(s) PO Q4H 08/29/2010 09/17/2010 Inactive alprazolam 0.5 mg Tab RxNorm: 006224 1 Tablet(s) PO BID prn 010 09/27/2010 Inactive alprazolam 0.5 mg Tab RxNorm: 372559 1 Tablet(s) PO BID prn 010 09/06/2010 Inactive Klor-Con 8 mEq Tab RxNorm: 498203 1 Tablet(s) PO QD 08/08/20102010 Inactive hydrocodone-acetaminophen 7.5 mg-650 mg Tab RxNorm: 551073 1 Ta blet(s) PO Q4H 08/08/2010 08/27/2010 Inactive Ambien 10 mg Tab RxNorm: 526446 1 Tablet(s) PO QHS 08/08/2010 Inactive clonidine 0.2 mg Tab RxNorm: 434878 1 Tablet(s) PO TID 08/08/2010 Inactive Premarin 1.25 mg Tab RxNorm: 247397 2 Tablet(s) PO QD 08/08/201009/12 Inactive Ambien 10 mg Tab RxNorm: 392960 1 Tablet(s) PO QHS 07/18/2010 Inactive alprazolam 0.5 mg Tab RxNorm: 550915 1 Tablet(s) PO BID prn 010 08/07/2010 Inactive hydrocodone-acetaminophen 7.5 mg-650 mg Tab RxNorm: 744433 1 Ta blet(s) PO Q4H 07/12/2010 07/31/2010 Inactive clonidine 0.2 mg Tab RxNorm: 038722 1 Tablet(s) PO TID 06/20/2010 Inactive terbinafine 250 mg Tab RxNorm: 165428 1 Tablet(s) PO QD 05/24/2010 Inactive Clonidine 0.2 mg Tab RxNorm: 481188 1 Tablet(s) PO TID 05/24/201006/2010 Inactive Ambien 10 mg Tab RxNorm: 747125 1 Tablet(s) PO QHS 05/24/2010 010 Inactive alprazolam 0.5 mg Tab RxNorm: 736470 1 Tablet(s) PO BID 05/24/2010 Inactive Klor-Con 8 mEq Tab RxNorm: 242724 1 Tablet(s) PO QD 05/24/20102009 Inactive alprazolam 0.5 mg Tab RxNorm: 651008 2 Tablet(s) PO QD prn 05/24/20 10 07/17/2010 Inactive triamterene-hydrochlorothiazide 75 mg-50 mg Tab RxNorm: 3108 18 1 Tablet(s) PO QD 05/24/2010 11/19/2010 Inactive Ambien 10 mg Tab RxNorm: 115319 1 Tablet(s) PO QHS 05/23/2010 010 Inactive Alprazolam 0.5 mg Tab RxNorm: 910862 2 Tablet(s) PO QD prn 05/23/2005/23/2010 Inactive Premarin 1.25 mg Tab RxNorm: 103035 2 Tablet(s) PO QD 05/19/201007/12 Inactive Hydrocodone-Acetaminophen 7.5 mg-650 mg Tab RxNorm: 504280 1 Ta blet(s) PO Q4H 05/19/2010 03/20/2011 Inactive Prednisone 20 mg Tab RxNorm: 295224 1 Tablet(s) PO BID 05/17/2010 Inactive Prednisone 20 mg Tab RxNorm: 063045 1 Tablet(s) PO BID 05/06/201001/2010 Inactive Premarin 1.25 mg Tab RxNorm: 546008 Tablet(s) PO 2 M-W-F, and 1 Df-Wz-Alc-Sun 05/05/2010 08/02/2010 Inactive Premarin 1.25 mg Tab RxNorm: 051032 Tablet(s) PO 2 M-W-F, and 1 Je-Ap-Hab-Sun 05/04/2010 05/04/2010 Inactive Premarin 1.25 mg Tab RxNorm: 172550 Tablet(s) PO 2 M-W-F, and 1 Ab-Mf-Ozq-Sun 05/04/2010 05/03/2010 Inactive Prednisone 20 mg Tab RxNorm: 059635 1 Tablet(s) PO BID 04/27/2010 Inactive Alprazolam 0.5 mg Tab RxNorm: 371406 2 Tablet(s) PO QD prn 04/26/20 10 05/22/2010 Inactive Clindamycin 300 mg Cap RxNorm: 250855 2 Capsule(s) PO TID 04/05/2010 04/18/2010 Inactive Terbinafine 250 mg Tab RxNorm: 339546 1 Tablet(s) PO QD 04/04/2010 Inactive Hydrocodone-Acetaminophen 7.5 mg-650 mg Tab RxNorm: 258384 1 Ta blet(s) PO Q4H 03/30/2010 04/18/2010 Inactive Avelox 400 mg Tab RxNorm: 183059 1 Tablet(s) PO QD 03/09/2010 010 Inactive Hydrocodone-Acetaminophen 7.5 mg-650 mg Tab RxNorm: 471113 1 Ta blet(s) PO Q4H 03/08/2010 03/27/2010 Inactive Alprazolam 0.5 mg Tab RxNorm: 845462 2 Tablet(s) PO QD prn 03/08/20 10 04/25/2010 Inactive Klor-Con 8 mEq Tab RxNorm: 982085 1 Tablet(s) PO QD when takes lasi x 03/07/2010 08/03/2010 Inactive Premarin 1.25 mg Tab RxNorm: 733696 1 Tablet(s) PO QD 03/03/201003/11 Inactive Alprazolam 0.5 mg Tab RxNorm: 275930 1 Tablet(s) PO BID PRN 010 No Stop Date Active triamterene-hydrochlorothiazide 75 mg-50 mg Tab RxNorm: 3108 18 1 Tablet(s) PO QD 02/09/2010 02/03/2011 Inactive Hydrocodone-Acetaminophen 10 mg-750 mg Tab RxNorm: 812309 1 Tablet(s) PO Q4H PRN 02/09/2010 03/20/2011 Inactive Clonidine 0.2 mg Tab RxNorm: 077345 1 Tablet(s) PO TID 01/13/201009/2009 Inactive Alprazolam 0.5 mg Tab RxNorm: 017633 1 Tablet(s) PO BID PRN 010 01/12/2010 Inactive Hydrocodone-Acetaminophen 10 mg-750 mg Tab RxNorm: 015220 1 Tablet(s) PO Q4H PRN 01/13/2010 01/12/2010 Inactive ANGELIQ 1 mg-0.5 mg Tab RxNorm: 7034732 1 Tablet(s) PO QD 12/27/2009 01/23/2010 Inactive Lasix 40 mg Tab RxNorm: 047679 1 Tablet(s) PO QAM 12/14/2009 06/11/20 10 Inactive Vitamin B12 1000mcg Tablet RxNorm: 1 Tablet(s) PO QD No Start Date Active cyclobenzaprine 10 mg tablet RxNorm: 923203 1 Tablet(s) PO TID as needed DO NOT USE WITH BACLOFEN No Start Date Active Vitamin D 5,000 unit Tab RxNorm: 1 Tablet(s) PO QD No Start Date Active vitamin E (dl, acetate) 400 unit Cap RxNorm: 591653 1 Capsule(s ) PO QD No Start Date Active Benadryl 25 mg Cap RxNorm: 6520897 Capsule(s) PO PRN No Start Date Inactive amitriptyline 100 mg tablet RxNorm: 905377 1 Tablet(s) PO QHS No St art Date 11/27/2016 Inactive Zithromax Z-Dustin 250 mg tablet RxNorm: 858306 Tablet(s) PO as di rected No Start Date 07/22/2013 Inactive Klor-Con 8 mEq tablet,extended release RxNorm: 576542 1 Tablet( s) PO BID No Start Date 07/28/2012 Inactive scopolamine 1.5 mg 72 hr Transderm Patch RxNorm: 565077 Application TD Q72H for motion sickness No Start Date 05/25/2013 Inactive Klonopin 1 mg tablet RxNorm: 879567 1-2 Tablet(s) PO QHS as nee ded for sleep No Start Date 06/20/2015 Inactive Klor-Con M20 mEq tablet,extended release RxNorm: 676163 2 Tablet(s) PO BID to use with lasix No Start Date 11/11/2013 Inactive Bystolic 5 mg tablet RxNorm: 433063 1 Tablet(s) PO QD No Start Date 1 Inactive Bystolic 10 mg tablet RxNorm: 656141 1 Tablet(s) PO BID No Start Da te 07/06/2015 Inactive Premarin 1.25 mg Tab RxNorm: 427879 Tablet(s) PO 2 -W-, and 1 Sn-Yl-Uxh-Sun No Start Date 05/03/2010 Inactive baclofen 20 mg tablet RxNorm: 867559 1 Tablet(s) PO TID as needed for muscle spasm No Start Date 07/22/2015 Inactive hydrocodone-acetaminophen 7.5 mg-650 mg Tab RxNorm: 901483 1 Tablet(s) PO Q4H as needed for pain No Start Date 03/20/2011 Inactive albuterol sulfate 1.25 mg/3 mL Neb Solution RxNorm: 125026 1 Unit Dose INH Q4H 2boxes No Start Date 09/06/2015 Inactive Butrans 20 mcg/hour Transderm Patch RxNorm: 514521 1 TD WEEKLY apply to skin weekly after removing previous. No Start Date 07/22/2013 Inactive Medrol (Dustin) 4 mg tablets in a dose pack RxNorm: 806722 Tablet(s) PO As Directed No Start Date 07/30/2016 Inactive hydrocodone-acetaminophen 10 mg-325 mg Tab RxNorm: 3063058 1-2 Tablet(s) PO TID as needed for pain No Start Date 03/19/2011 Inactive Klonopin 1 mg tablet RxNorm: 516599 1 Tablet(s) PO QHS No Start Date 02/28/2016 Inactive honey topical RxNorm: topical No Start Date 06/16/2018 Inactive Clonidine 0.2 mg Tab RxNorm: 296077 1 Tablet(s) PO TID No Start Date 01/12/2010 Inactive ketorolac 10 mg tablet RxNorm: 989917 1 Tablet(s) PO Q8H No Start D ate 03/18/2012 Inactive as needed for headache Singulair 10 mg Tab RxNorm: 818493 1 Tablet(s) PO QD No Start Date Inactive Premarin 1.25 mg Tab RxNorm: 534598 1 Tablet(s) PO QD No Start Date 1 Inactive Flonase 50 mcg/Actuation Nasal [place] RxNorm: 6605119 1 [place] CECELIA AL BID No Start Date 03/18/2012 Inactive Terbinafine 250 mg Tab RxNorm: 878585 1 Tablet(s) PO QD No Start Da te 04/03/2010 Inactive Fexofenadine 180 mg Tab RxNorm: 3438240 1 Tablet(s) PO QD No Start Date 09/06/2015 Inactive baclofen 20 mg tablet RxNorm: 297903 1 Tablet(s) PO TID as needed N o Start Date 05/25/2014 Inactive Diovan 160 mg Tab RxNorm: 427020 1 Tablet(s) PO QD No Start Date 09/12 Inactive mupirocin 2 % topical ointment RxNorm: 001546 1 Application TOP QID No Start Date 04/25/2016 Inactive ZOFRAN ODT 4 mg Tab, Rapid Dissolve RxNorm: 831310 1 Tablet(s) PO Q4H No Start Date 03/18/2012 Inactive as needed for nausea and vomiting Alprazolam 0.5 mg Tab RxNorm: 845336 1 Tablet(s) PO BID PRN No Star t Date 01/12/2010 Inactive cyclobenzaprine 10 mg tablet RxNorm: 029310 1 Tablet(s) PO TID as needed for muscle spasm No Start Date 10/08/2017 Inactive Albuterol 0.083% Aerosol Solution RxNorm: 1 Appl ication INH Q4H Use one ampule every 4 hrs with nebulizer as needed for shortness of breath. No Start Date 10/09/2010 Inactive lorazepam 1 mg tablet RxNorm: 028373 1 1/2 Tablet(s) PO QHS No Star t Date 02/02/2016 Inactive Melatonin 3 mg Tab RxNorm: 352446 Tablet(s) PO PRN No Start Date 07/11 Inactive Medrol (Dustin) 4 mg Tabs in a Dose Pack RxNorm: 313999 Tablet(s) PO N o Start Date 11/28/2010 Inactive lorazepam 1 mg tablet RxNorm: 140861 1 Tablet(s) PO QHS as need ed for sleep No Start Date 01/30/2016 Inactive hydrocodone-acetaminophen 10 mg-325 mg Tab RxNorm: 4106452 1-2 Tablet(s) PO QID as needed for severe pain No Start Date 03/24/2012 Inactive celecoxib 200 mg capsule RxNorm: 067785 1 Capsule(s) PO BID No Star t Date 06/26/2019 Inactive amlodipine 5 mg-benazepril 20 mg capsule RxNorm: 209859 1 Capsu le(s) PO QD No Start Date 04/10/2017 Inactive Bystolic 20 mg tablet RxNorm: 786155 1/2 Tablet(s) PO QAM No Start Date 01/23/2016 Inactive Bystolic 20 mg tablet RxNorm: 325341 1 Tablet(s) PO QAM No Start Da te 04/25/2016 Inactive Ambien 10 mg Tab RxNorm: 992477 1 Tablet(s) PO QHS No Start Date 05/11 Inactive Klor-Con 8 mEq Tab RxNorm: 065765 1 Tablet(s) PO QD when takes lasix No Start Date 03/06/2010 Inactive aspirin 81 mg tablet RxNorm: 139886 1 Tablet(s) PO QD No Start Date 0 01/29/2018 Inactive hydrocodone-acetaminophen 10 mg-325 mg Tab RxNorm: 6504118 1-2 T ablet(s) PO QID No Start Date 01/10/2012 Inactive Bystolic 10 mg tablet RxNorm: 930465 1 Tablet(s) PO QAM take one daily in the morning. No Start Date 05/28/2013 Inactive nystatin 100,000 unit/mL Oral Susp RxNorm: 104864 5 Milliliter( s) PO QID No Start Date 03/18/2012 Inactive swish and spit scopolamine 1.5 mg 72 hr Transderm Patch RxNorm: 404362 1 Unit Dose TD Q72H for motion sickness No Start Date 12/23/2013 Inactive Hydrocodone-Acetaminophen 10 mg-750 mg Tab RxNorm: 428527 1 Tablet(s) PO Q4H PRN No Start Date 01/12/2010 Inactive Soma 350 mg tablet RxNorm: 516840 1 Tablet(s) PO TID as needed for spasm No Start Date 01/12/2013 Inactive baclofen 10 mg tablet RxNorm: 567937 1 Tablet(s) PO TID as needed for muscle spasm No Start Date 09/18/2019 Inactive Soma 350 mg Tab RxNorm: 732721 1 Tablet(s) PO TID for spasm No Star t Date 01/31/2012 Inactive Co Q-10 400 mg capsule RxNorm: 968356 1 Capsule(s) PO QD No Start D ate 01/21/2019 Inactive nystatin 100,000 unit/gram topical cream RxNorm: 093201 Applica tion TOP BID No Start Date 03/22/2015 Inactive Exforge 5 mg-160 mg Tab RxNorm: 711453 1 Tablet(s) PO QD No Start D ate 10/09/2010 Inactive Hydrocodone-Acetaminophen 7.5 mg-650 mg Tab RxNorm: 218807 1 Ta blet(s) PO Q4H No Start Date 03/07/2010 Inactive Robaxin-750 750 mg Tab RxNorm: 426434 1-2 Tablet(s) PO TID prn spasm No Start Date 05/21/2011 Inactive amlodipine 5 mg tablet RxNorm: 916195 1 Tablet(s) PO QHS No Start D ate 09/29/2015 Inactive oxycodone-acetaminophen 10 mg-325 mg tablet RxNorm: 5776529 1-2 Tablet(s) PO Q6H No Start Date 06/16/2018 Inactive Triamterene-Hydrochlorothiazide 75 mg-50 mg Tab RxNorm: 3108 18 1 Tablet(s) PO QD No Start Date 02/08/2010 Inactive Alprazolam 0.5 mg Tab RxNorm: 200029 2 Tablet(s) PO QD prn No Start Date 03/07/2010 Inactive Bystolic 20 mg tablet RxNorm: 926733 1 Tablet(s) PO QAM No Start Da te 08/17/2015 Inactive ketorolac 10 mg tablet RxNorm: 455011 1 Tablet(s) PO QID prn he adache No Start Date 07/17/2012 Inactive acyclovir 800 mg Tab RxNorm: 066570 1 Tablet(s) PO BID No Start Date 03/18/2012 Inactive duloxetine 60 mg capsule,delayed release RxNorm: 028159 1 Capsu le(s) PO QD No Start Date 09/29/2015 Inactive Norvasc 5 mg tablet RxNorm: 477454 1 Tablet(s) PO QHS No Start Date 1 10/18/2014 Inactive promethazine 25 mg tablet RxNorm: 040447 1 Tablet(s) PO Q8H use sparingly No Start Date 07/22/2013 Inactive alprazolam 0.5 mg tablet RxNorm: 204766 3 Tablet(s) PO QHS No Start Date 06/06/2015 Inactive Lunesta 3 mg tablet RxNorm: 954758 1 Tablet(s) PO QHS No Start Date 0 09/20/2017 Inactive hydrocodone-acetaminophen 10 mg-325 mg Tab RxNorm: 0996323 1-2 Tablet(s) PO TID as needed for pain No Start Date 12/10/2011 Inactive Coricidin HBP Cough & Cold 4 mg-30 mg Tab RxNorm: 4689842 Tablet (s) PO PRN No Start Date 10/09/2010 Inactive Bactroban 2 % Ointment RxNorm: 733639 Application TOP QID to so res No Start Date 02/22/2012 Inactive Flonase 50 mcg/actuation Nasal [place] RxNorm: 140653 2 [place] QHS No Start Date 03/03/2014 Inactive Medication Administered No Medication Administered data Immunizations Vaccine Codes Date Status Tetanus, Diptheria, Pertussis CVX: 115 02/27/2014 Results Observation Observation Code Item Item Code Result Date S [facility] Location COMPLETE BLOOD COUNT [id number] WBC 10.7 10e9/L 018 Unknown COMPLETE BLOOD COUNT [id number] RBC 4.59 10e12/L 2017 Unknown COMPLETE BLOOD COUNT [id number] HEMOGLOBIN 14.8 g/dL 12/11/19 18 Unknown COMPLETE BLOOD COUNT [id number] HEMATOCRIT 44.9 % 12/11/19 18 Unknown COMPLETE BLOOD COUNT 1655344 MCV 97.8 fL 8 Unknown COMPLETE BLOOD COUNT [id number] MCH 32.2 pg 8 Unknown COMPLETE BLOOD COUNT 9150231 MCHC 33.0 g/dL 8 Unknown COMPLETE BLOOD COUNT [id number] PLATELET COUNT 261 10e9/L 10/2017 Unknown COMPLETE BLOOD COUNT 5888494 Mean Plt Volume 9.5 fL 10/2017 Unknown COMPLETE BLOOD COUNT 9171138 Neut Auto 59.9 % 8 Unknown COMPLETE BLOOD COUNT [id number] Lymph Auto 27.4 % 12/11/19 18 Unknown COMPLETE BLOOD COUNT 0514143 [place] Auto 8.2 % 8 Unknown COMPLETE BLOOD COUNT [id number] RDW 13.3 % 8 Unknown COMPLETE BLOOD COUNT [id number] Eos Auto 4.1 % 8 Unknown COMPLETE BLOOD COUNT 5231768 Baso Auto 0.4 % 8 Unknown COMPLETE BLOOD COUNT 9578537 Neutrophil Abs 6.41 10e9/L Unknown COMPLETE BLOOD COUNT [id number] Lymphocyte Abs 2.93 10e9/L Unknown COMPLETE BLOOD COUNT [id number] Monocyte Abs 0.88 10e9/L 10/2017 Unknown COMPLETE BLOOD COUNT [id number] Eosinophil Abs 0.44 10e9/L Unknown COMPLETE BLOOD COUNT 3237648 RDW-SD 46.2 fL 8 Unknown COMPLETE BLOOD COUNT [id number] Basophil Abs 0.04 10e9/L 10/2017 Unknown THYROID STIMULATING HORMONE 21051 TSH 4.015 uIU/mL 12/10/2017 Unknown COMPREHENSIVE METABOLIC 54578 AST 25 U/L 2017 Unknown COMPREHENSIVE METABOLIC 83873 ALT 17 U/L 2017 Unknown COMPREHENSIVE METABOLIC 21420 BUN 19 mg/dL 2017 Unknown COMPREHENSIVE METABOLIC 09556 ALBUMIN 4.0 g/dL 2017 Unknown COMPREHENSIVE METABOLIC 50948 CHLORIDE 91 mmol/L 2017 Unknown COMPREHENSIVE METABOLIC 86038 Bili Total 0.5 mg/dL 12/10 Unknown COMPREHENSIVE METABOLIC 22676 ALK PHOS 75 U/L 2017 Unknown COMPREHENSIVE METABOLIC 89380 SODIUM 136 mmol/L 12/10 Unknown COMPREHENSIVE METABOLIC 86364 CREATININE 1.05 mg/dL 10/2017 Unknown COMPREHENSIVE METABOLIC 54982 CALCIUM 8.9 mg/dL 2017 Unknown COMPREHENSIVE METABOLIC 87913 POTASSIUM 3.4 mmol/L 12/10 Unknown COMPREHENSIVE METABOLIC 86507 Total Protein 6.5 g/dL Unknown COMPREHENSIVE METABOLIC 80584 Glucose 138 mg/dL 2017 Unknown COMPREHENSIVE METABOLIC 81614 Bicarbonate 35 mmol/L 10/2017 Unknown COMPREHENSIVE METABOLIC 29388 AGAP 10 mmol/L 2017 Unknown MEAN GLUC 7613193 Calc Mean Gluc 171 mg/dL 12/10/2017 Unkn own LIPID GROUP 52720 Cholesterol 204 mg/dL 12/10/2017 Unkno wn LIPID GROUP 81212 Triglyceride 411 mg/dL 12/10/2017 Unkn own LIPID GROUP 91603 HDL CHOLESTEROL 50 mg/dL 12/10/2017 U nknown LIPID GROUP 70505 Chol/HDL Ratio 4.08 ratio 12/10/2017 U nknown LIPID GROUP 42674 NON-HDL Chol 154 mg/dL 12/10/2017 Unkn own LIPID GROUP 81082 LDL Cholesterol N/A Trig >400 018 Unknown GLYCOSYLATED HEMOGLOBIN TEST 23848 Hgb A1c 96358-7 7.6 % 0 12/10/2017 Unknown FREE T4 19493 T4 Free 1.40 ng/dL 12/10/2017 Unknown GFR CALC 5378034 GFR Non Afr Amr 55 mL/min 12/10/2017 Unk nown GFR CALC 6708686 GFR Afr Amr >60 mL/min 12/10/2017 Unknow n GFR CALC 8786710 GFR Non Afr Amr 48 mL/min 06/28/2017 Unk nown GFR CALC 1421822 GFR Afr Amr 59 mL/min 06/28/2017 Unknown COMPREHENSIVE METABOLIC 01901 AST 32 U/L 2016 Unknown COMPREHENSIVE METABOLIC 50191 ALT 22 U/L 2016 Unknown COMPREHENSIVE METABOLIC 41844 BUN 23 mg/dL 2016 Unknown COMPREHENSIVE METABOLIC 39621 ALBUMIN 4.7 g/dL 2016 Unknown COMPREHENSIVE METABOLIC 41726 CHLORIDE 89 mmol/L 2016 Unknown COMPREHENSIVE METABOLIC 28500 Bili Total 0.5 mg/dL 06/28 Unknown COMPREHENSIVE METABOLIC 40118 ALK PHOS 90 U/L 2016 Unknown COMPREHENSIVE METABOLIC 32246 SODIUM 135 mmol/L 06/28 Unknown COMPREHENSIVE METABOLIC 15781 CREATININE 1.18 mg/dL 06/10 Unknown COMPREHENSIVE METABOLIC 43912 CALCIUM 9.7 mg/dL 2016 Unknown COMPREHENSIVE METABOLIC 00520 POTASSIUM 3.5 mmol/L 06/28 Unknown COMPREHENSIVE METABOLIC 17563 Total Protein 7.7 g/dL Unknown COMPREHENSIVE METABOLIC 32421 Glucose 129 mg/dL 2016 Unknown COMPREHENSIVE METABOLIC 56733 Bicarbonate 34 mmol/L 06/10 Unknown COMPREHENSIVE METABOLIC 33716 AGAP 12 mmol/L 2016 Unknown LIPID GROUP 54708 HDL TEST 64 MG/DL 08/27/2014 Unknown LIPID GROUP 19449 TRIG 222 MG/DL 08/27/2014 Unknown LIPID GROUP 96976 TEST LDL 209 MG/DL 08/27/2014 Unknown LIPID GROUP 86065 CHOL 317 MG/DL 08/27/2014 Unknown LIPID GROUP 68122 RCHOL/HDL 4.95 RATIO 08/27/2014 Unknow n LIPID GROUP 30234 NON-HDL CH 253 MG/DL 08/27/2014 Unknow n GFR CALC 8283005 GFR AA >60 ML/MIN 08/27/2014 Unknown GFR CALC 7231624 GFR NON-AA >60 ML/MIN 08/27/2014 Unknown COMPLETE BLOOD COUNT [id number] WBC 7.0 10e9/L 08/27/20 14 Unknown COMPLETE BLOOD COUNT 8176085 RBC 4.98 10e12/L 2013 Unknown COMPLETE BLOOD COUNT 3903941 HGB 15.6 g/dL 4 Unknown COMPLETE BLOOD COUNT 1027702 HCT DET 46.5 % 4 Unknown COMPLETE BLOOD COUNT 1834248 MCV 93.4 fL 4 Unknown COMPLETE BLOOD COUNT 0453928 MCH 31.3 pg 4 Unknown COMPLETE BLOOD COUNT 1425262 MCHC 33.5 g/dL 4 Unknown COMPLETE BLOOD COUNT 1552396 PLT 309 10e9/L 08/27/20 14 Unknown COMPLETE BLOOD COUNT 7384670 MPV 9.6 fL 4 Unknown COMPLETE BLOOD COUNT 5366843 CADEN % 57.2 % 4 Unknown COMPLETE BLOOD COUNT 4191096 LY % 33.2 % 4 Unknown COMPLETE BLOOD COUNT 0687979 MON % 7.3 % 4 Unknown COMPLETE BLOOD COUNT [id number] EOS % 2.0 % 4 Unknown COMPLETE BLOOD COUNT 4247303 BASO % 0.3 % 4 Unknown COMPLETE BLOOD COUNT 6471143 RDW 13.7 % 4 Unknown COMPLETE BLOOD COUNT 8231842 ABS CADEN 4.00 10e9/L 014 Unknown COMPLETE BLOOD COUNT 7607346 ABS LYMPH 2.32 10e9/L 014 Unknown COMPLETE BLOOD COUNT [id number] ABS MONO 0.51 10e9/L 014 Unknown COMPLETE BLOOD COUNT 1105941 ABS EOS 0.14 10e9/L 014 Unknown COMPLETE BLOOD COUNT 1311516 ABS BASO 0.02 10e9/L 014 Unknown COMPLETE BLOOD COUNT 7551240 RDW-SD 45.1 fL 4 Unknown COMPREHENSIVE METABOLIC 11749 AST 13 U/L 2013 Unknown COMPREHENSIVE METABOLIC 72651 ALT 11 IU/L 2013 Unknown COMPREHENSIVE METABOLIC 00848 BUN 23 MG/DL 2013 Unknown COMPREHENSIVE METABOLIC 70041 ALBUMIN 4.4 GM/DL 2013 Unknown COMPREHENSIVE METABOLIC 84383 CHLORIDE 99 MMOL/L 2013 Unknown COMPREHENSIVE METABOLIC 79548 BILI TOT 0.5 MG/DL 2013 Unknown COMPREHENSIVE METABOLIC 25260 ALK PHOS 56 U/L 2013 Unknown COMPREHENSIVE METABOLIC 25862 SODIUM 138 MMOL/L 08/27 Unknown COMPREHENSIVE METABOLIC 70099 CREATININE 0.95 MG/DL 08/10 Unknown COMPREHENSIVE METABOLIC 36715 CALCIUM 9.8 MG/DL 2013 Unknown COMPREHENSIVE METABOLIC 46804 POTASSIUM 3.5 MMOL/L 08/27 Unknown COMPREHENSIVE METABOLIC 34360 PROT TOT 6.8 GM/DL 2013 Unknown COMPREHENSIVE METABOLIC 20180 Glucose 90 MG/DL 2013 Unknown COMPREHENSIVE METABOLIC 53708 BICARB 34 MMOL/L 2013 Unknown COMPREHENSIVE METABOLIC 39509 ANION GAP 5 MEQ/L 2013 Unknown LIPASE 17819 LIPASE 11 IU/L 07/21/2014 Unknown AMYLASE 02047 AMYLASE 39 IU/L 07/21/2014 Unknown HEMOGLOBIN A1C (GLYCOSYLATED) 8029204 A1C [facility] 63171-4 6.2 % 03/05/2013 Unknown THYROID STIMULATING HORMONE 76048 TSH 6.986 uIU/ML 03/05/2013 Unknown COMPLETE BLOOD COUNT [id number] WBC 12.7 10e9/L 013 Unknown COMPLETE BLOOD COUNT 5857100 RBC 4.53 10e12/L 2012 Unknown COMPLETE BLOOD COUNT 0451924 HGB 14.7 g/dL 3 Unknown COMPLETE BLOOD COUNT 1169372 HCT DET 43.1 % 3 Unknown COMPLETE BLOOD COUNT 6147470 MCV 95.1 fL 3 Unknown COMPLETE BLOOD COUNT 9092728 MCH 32.5 pg 3 Unknown COMPLETE BLOOD COUNT 6609664 MCHC 34.1 g/dL 3 Unknown COMPLETE BLOOD COUNT 7739747 PLT 346 10e9/L 03/05/20 13 Unknown COMPLETE BLOOD COUNT 1482613 MPV 9.5 fL 3 Unknown COMPLETE BLOOD COUNT 6483219 CADEN % 67.6 % 3 Unknown COMPLETE BLOOD COUNT 6767750 LY % 22.1 % 3 Unknown COMPLETE BLOOD COUNT 0805017 MON % 6.6 % 3 Unknown COMPLETE BLOOD COUNT 3056803 EOS % 3.3 % 3 Unknown COMPLETE BLOOD COUNT 3017591 BASO % 0.4 % 3 Unknown COMPLETE BLOOD COUNT 2481840 RDW 14.0 % 3 Unknown COMPLETE BLOOD COUNT [id number] ABS CADEN 8.59 10e9/L 013 Unknown COMPLETE BLOOD COUNT 4414876 ABS LYMPH 2.81 10e9/L 013 Unknown COMPLETE BLOOD COUNT 9595654 ABS MONO 0.84 10e9/L 013 Unknown COMPLETE BLOOD COUNT 8776623 ABS EOS 0.42 10e9/L 013 Unknown COMPLETE BLOOD COUNT [id number] ABS BASO 0.05 10e9/L 013 Unknown COMPLETE BLOOD COUNT 4490582 RDW-SD 46.0 fL 3 Unknown FREE T4 29019 FREE T4 1.14 NG/DL 03/05/2013 Unknown COMPREHENSIVE METABOLIC 45619 AST 17 U/L 2012 Unknown COMPREHENSIVE METABOLIC 59559 ALT 12 IU/L 2012 Unknown COMPREHENSIVE METABOLIC 59395 BUN 24 MG/DL 2012 Unknown COMPREHENSIVE METABOLIC 18140 ALBUMIN 4.2 GM/DL 2012 Unknown COMPREHENSIVE METABOLIC 76024 CHLORIDE 93 MMOL/L 2012 Unknown COMPREHENSIVE METABOLIC 72717 BILI TOT 0.5 MG/DL 2012 Unknown COMPREHENSIVE METABOLIC 85827 ALK PHOS 75 U/L 2012 Unknown COMPREHENSIVE METABOLIC 68302 SODIUM 141 MMOL/L 03/05 Unknown COMPREHENSIVE METABOLIC 94221 CREATININE 1.36 MG/DL 02/09 Unknown COMPREHENSIVE METABOLIC 21283 CALCIUM 9.2 MG/DL 2012 Unknown COMPREHENSIVE METABOLIC 87400 POTASSIUM 3.1 MMOL/L 03/05 Unknown COMPREHENSIVE METABOLIC 36989 PROT TOT 6.9 GM/DL 2012 Unknown COMPREHENSIVE METABOLIC 91808 Glucose 123 MG/DL 2012 Unknown COMPREHENSIVE METABOLIC 91050 BICARB 36 MMOL/L 2012 Unknown COMPREHENSIVE METABOLIC 48138 ANION GAP 12 MEQ/L 2012 Unknown GFR CALC 1187723 GFR AA 51.0L ML/MIN 03/05/2013 Unknow n GFR CALC 6732170 GFR NON-AA 42.0L ML/MIN 03/05/2013 Unkno wn COMPREHENSIVE METABOLIC 67506 AST 14 U/L 2012 Unknown COMPREHENSIVE METABOLIC 06645 ALT 11 IU/L 2012 Unknown COMPREHENSIVE METABOLIC 52000 BUN 16 MG/DL 2012 Unknown COMPREHENSIVE METABOLIC 72501 ALBUMIN 4.2 GM/DL 2012 Unknown COMPREHENSIVE METABOLIC 76986 CHLORIDE 98 MMOL/L 2012 Unknown COMPREHENSIVE METABOLIC 17773 BILI TOT 0.4 MG/DL 2012 Unknown COMPREHENSIVE METABOLIC 89753 ALK PHOS 77 U/L 2012 Unknown COMPREHENSIVE METABOLIC 35126 SODIUM 139 MMOL/L 09/25 Unknown COMPREHENSIVE METABOLIC 37116 CREATININE 0.86 MG/DL 09/10 Unknown COMPREHENSIVE METABOLIC 15799 CALCIUM 9.5 MG/DL 2012 Unknown COMPREHENSIVE METABOLIC 75568 POTASSIUM 3.8 MMOL/L 09/25 Unknown COMPREHENSIVE METABOLIC 42137 PROT TOT 6.8 GM/DL 2012 Unknown COMPREHENSIVE METABOLIC 63909 Glucose 91 MG/DL 2012 Unknown COMPREHENSIVE METABOLIC 93436 BICARB 32 MMOL/L 2012 Unknown COMPREHENSIVE METABOLIC 17901 ANION GAP 9 MEQ/L 2012 Unknown FREE T4 87611 FREE T4 0.98 NG/DL 09/25/2012 Unknown THYROID STIMULATING HORMONE 94567 TSH 1.736 uIU/ML 09/25/2012 Unknown C-REACTIVE PROTEIN (CRP) QUANT 42830 CRP 2.3 MG/DL 09/25/2012 Unknown COMPLETE BLOOD COUNT [id number] WBC 11.9 10e9/L 013 Unknown COMPLETE BLOOD COUNT 3527770 RBC 4.87 10e12/L 2012 Unknown COMPLETE BLOOD COUNT 2721042 HGB 15.1 g/dL 3 Unknown COMPLETE BLOOD COUNT 4490722 HCT DET 44.8 % 3 Unknown COMPLETE BLOOD COUNT 7852645 MCV 92.0 fL 3 Unknown COMPLETE BLOOD COUNT 6490262 MCH 31.0 pg 3 Unknown COMPLETE BLOOD COUNT 6593594 MCHC 33.7 g/dL 3 Unknown COMPLETE BLOOD COUNT 5096235 PLT 343 10e9/L 09/25/19 13 Unknown COMPLETE BLOOD COUNT 4471091 MPV 9.0 fL 3 Unknown COMPLETE BLOOD COUNT 9744376 CADEN % 68.2 % 3 Unknown COMPLETE BLOOD COUNT 6882735 LY % 22.4 % 3 Unknown COMPLETE BLOOD COUNT 9203732 MON % 6.4 % 3 Unknown COMPLETE BLOOD COUNT 1761574 EOS % 2.7 % 3 Unknown COMPLETE BLOOD COUNT 2527311 BASO % 0.3 % 3 Unknown COMPLETE BLOOD COUNT 4341154 RDW 13.8 % 3 Unknown COMPLETE BLOOD COUNT 2809424 ABS CADEN 8.12 10e9/L 013 Unknown COMPLETE BLOOD COUNT 0191177 ABS LYMPH 2.67 10e9/L 013 Unknown COMPLETE BLOOD COUNT 1855404 ABS MONO 0.76 10e9/L 013 Unknown COMPLETE BLOOD COUNT [id number] ABS EOS 0.32 10e9/L 013 Unknown COMPLETE BLOOD COUNT 0851722 ABS BASO 0.04 10e9/L 013 Unknown COMPLETE BLOOD COUNT 5213343 RDW-SD 45.6 fL 3 Unknown GFR CALC 0843117 GFR AA >60 ML/MIN 09/25/2012 Unknown GFR CALC 7509604 GFR NON-AA >60 ML/MIN 09/25/2012 Unknown ERYTHROCYTE SEDIMENTATION RATE 54470 ESR 19 MM/HR 05/06/2012 Unknown VITAMIN B 12 FOLIC ACID 17254|20971 VIT B 12 922 PG/ML 04/11 Unknown VITAMIN B 12 FOLIC ACID 08462|90688 FOLIC ACID 13.6 NG/ML Unknown URIC ACID 19593 URIC ACID 7.8 MG/DL 05/06/2012 Unknown COMPLETE BLOOD COUNT 46263 WBC 11.9 10e9/L 012 Unknown COMPLETE BLOOD COUNT 66666 RBC 5.30 10e12/L 2011 Unknown COMPLETE BLOOD COUNT 79071 HGB 16.6 g/dL 2 Unknown COMPLETE BLOOD COUNT 91681 HCT DET 47.2 % 2 Unknown COMPLETE BLOOD COUNT 93391 MCV 89.1 fL 2 Unknown COMPLETE BLOOD COUNT 03182 MCH 31.3 pg 2 Unknown COMPLETE BLOOD COUNT 10437 MCHC 35.2 g/dL 2 Unknown COMPLETE BLOOD COUNT 67894 PLT 362 10e9/L 05/06/20 12 Unknown COMPLETE BLOOD COUNT 07265 MPV 9.4 fL 2 Unknown COMPLETE BLOOD COUNT 63066 CADEN % 68.2 % 2 Unknown COMPLETE BLOOD COUNT 08095 LY % 22.0 % 2 Unknown COMPLETE BLOOD COUNT 06812 MON % 6.9 % 2 Unknown COMPLETE BLOOD COUNT 44207 EOS % 2.6 % 2 Unknown COMPLETE BLOOD COUNT 25180 BASO % 0.3 % 2 Unknown COMPLETE BLOOD COUNT 18975 RDW 12.8 % 2 Unknown COMPLETE BLOOD COUNT 81775 ABS CADEN 8.12 10e9/L 012 Unknown COMPLETE BLOOD COUNT 06849 ABS LYMPH 2.62 10e9/L 012 Unknown COMPLETE BLOOD COUNT 40931 ABS MONO 0.82 10e9/L 012 Unknown COMPLETE BLOOD COUNT 31787 ABS EOS 0.31 10e9/L 08/27/2 012 Unknown COMPLETE BLOOD COUNT 56490 ABS BASO 0.04 10e9/L 012 Unknown COMPLETE BLOOD COUNT 52587 RDW-SD 41.5 fL 2 Unknown GFR CALC 8816053 GFR AA >60 ML/MIN 05/06/2012 Unknown GFR CALC 2857914 GFR NON-AA 58.0L ML/MIN 05/06/2012 Unkno wn FREE T4 12539 FREE T4 1.15 NG/DL 05/06/2012 Unknown THYROID STIMULATING HORMONE 57340 TSH 1.568 uIU/ML 05/06/2012 Unknown COMPREHENSIVE METABOLIC 79550 AST 20 U/L 2011 Unknown COMPREHENSIVE METABOLIC 87041 ALT 12 IU/L 2011 Unknown COMPREHENSIVE METABOLIC 69934 BUN 20 MG/DL 2011 Unknown COMPREHENSIVE METABOLIC 61860 ALBUMIN 4.5 GM/DL 2011 Unknown COMPREHENSIVE METABOLIC 28238 CHLORIDE 91 MMOL/L 2011 Unknown COMPREHENSIVE METABOLIC 46695 BILI TOT 0.4 MG/DL 2011 Unknown COMPREHENSIVE METABOLIC 66568 ALK PHOS 73 U/L 2011 Unknown COMPREHENSIVE METABOLIC 91445 SODIUM 139 MMOL/L 05/06 Unknown COMPREHENSIVE METABOLIC 97763 CREATININE 1.02 MG/DL 04/11 Unknown COMPREHENSIVE METABOLIC 83022 CALCIUM 9.7 MG/DL 2011 Unknown COMPREHENSIVE METABOLIC 03602 POTASSIUM 3.1 MMOL/L 05/06 Unknown COMPREHENSIVE METABOLIC 02474 PROT TOT 7.3 GM/DL 2011 Unknown COMPREHENSIVE METABOLIC 49044 Glucose 118 MG/DL 2011 Unknown COMPREHENSIVE METABOLIC 66690 BICARB 33 MMOL/L 2011 Unknown COMPREHENSIVE METABOLIC 73312 ANION GAP 15 MEQ/L 2011 Unknown Procedures Procedure Codes Date ROUTINE VENIPUNCTURE CPT-4: 86644 09/29/2019 URINALYSIS NONAUTO W/O SCOPE CPT-4: 24550 09/29/2019 COMPREHEN METABOLIC PANEL CPT-4: 00811 09/29/2019 LIPID PANEL CPT-4: 43177 09/29/2019 A1C HPLC CPT-4: 93065 09/29/2019 ASSAY OF FREE THYROXINE CPT-4: 65185 09/29/2019 ASSAY THYROID STIM HORMONE CPT-4: 61364 09/29/2019 COMPLETE CBC W/AUTO DIFF WBC CPT-4: 83439 09/29/2019 URINALYSIS NONAUTO W/O SCOPE CPT-4: 49581 09/30/2018 MICROALBUMIN QUANTITATIVE CPT-4: 57828 09/30/2018 CEFTRIAXONE SODIUM INJECTION CPT-4: J0696 06/19/2018 THER/PROPH/DIAG INJ SC/IM CPT-4: 99565 06/19/2018 CEFTRIAXONE SODIUM INJECTION CPT-4: J0696 06/17/2018 THER/PROPH/DIAG INJ SC/IM CPT-4: 81536 06/17/2018 THER/PROPH/DIAG INJ SC/IM CPT-4: 54948 05/16/2018 KETOROLAC TROMETHAMINE INJ CPT-4: J1885 05/16/2018 ONDANSETRON HCL INJECTION CPT-4: J2405 05/16/2018 THER/PROPH/DIAG INJ SC/IM CPT-4: 38272 05/16/2018 ROUTINE VENIPUNCTURE CPT-4: 39401 03/20/2018 COMPREHEN METABOLIC PANEL CPT-4: 56026 03/20/2018 DEXAMETHASONE SODIUM PHOS CPT-4: J1100 02/11/2018 THER/PROPH/DIAG INJ SC/IM CPT-4: 89638 02/11/2018 TRIAMCINOLONE ACET INJ NOS CPT-4: J3301 02/11/2018 CEFTRIAXONE SODIUM INJECTION CPT-4: J0696 02/01/2018 THER/PROPH/DIAG INJ SC/IM CPT-4: 44650 02/01/2018 CEFTRIAXONE SODIUM INJECTION CPT-4: J0696 01/30/2018 THER/PROPH/DIAG INJ SC/IM CPT-4: 16543 01/30/2018 ROUTINE VENIPUNCTURE CPT-4: 20448 12/10/2017 ASSAY OF FREE THYROXINE CPT-4: 14161 12/10/2017 ASSAY THYROID STIM HORMONE CPT-4: 34037 12/10/2017 COMPREHEN METABOLIC PANEL CPT-4: 68473 12/10/2017 COMPLETE CBC W/AUTO DIFF WBC CPT-4: 49738 12/10/2017 LIPID PANEL CPT-4: 71452 12/10/2017 A1C HPLC CPT-4: 99898 12/10/2017 CEFTRIAXONE SODIUM INJECTION CPT-4: J0696 12/10/2017 THER/PROPH/DIAG INJ SC/IM CPT-4: 06656 12/10/2017 CEFTRIAXONE SODIUM INJECTION CPT-4: J0696 12/07/2017 THER/PROPH/DIAG INJ SC/IM CPT-4: 62943 12/07/2017 DEXAMETHASONE SODIUM PHOS CPT-4: J1100 12/07/2017 THER/PROPH/DIAG INJ SC/IM CPT-4: 99357 12/07/2017 CEFTRIAXONE SODIUM INJECTION CPT-4: J0696 10/08/2017 THER/PROPH/DIAG INJ SC/IM CPT-4: 27076 10/08/2017 CEFTRIAXONE SODIUM INJECTION CPT-4: J0696 09/21/2017 THER/PROPH/DIAG INJ SC/IM CPT-4: 76586 09/21/2017 CEFTRIAXONE SODIUM INJECTION CPT-4: J0696 09/20/2017 THER/PROPH/DIAG INJ SC/IM CPT-4: 83575 09/20/2017 REMOVAL OF NAIL PLATE CPT-4: 00371 08/29/2017 THER/PROPH/DIAG INJ SC/IM CPT-4: 39710 08/29/2017 TRIAMCINOLONE ACET INJ NOS CPT-4: J3301 08/29/2017 CEFTRIAXONE SODIUM INJECTION CPT-4: J0696 08/29/2017 THER/PROPH/DIAG INJ SC/IM CPT-4: 61087 08/29/2017 DESTRUCT PREMALG LESION (Cryosurgery) CPT-4: 32990 ROUTINE VENIPUNCTURE CPT-4: 78245 06/27/2017 ASSAY OF FREE THYROXINE CPT-4: 65960 06/27/2017 ASSAY THYROID STIM HORMONE CPT-4: 49978 06/27/2017 COMPREHEN METABOLIC PANEL CPT-4: 20754 06/27/2017 COMPLETE CBC W/AUTO DIFF WBC CPT-4: 68186 06/27/2017 EXC TR-EXT B9+REECE 0.5 CM< CPT-4: 34257 01/24/2017 THER/PROPH/DIAG INJ SC/IM CPT-4: 06461 08/02/2016 DEXAMETHASONE SODIUM PHOS CPT-4: J1100 08/02/2016 DESTRUCT PREMALG LESION (Cryosurgery) CPT-4: 78743 EXC TR-EXT B9+REECE 0.5 CM< CPT-4: 46593 08/01/2016 AEROBIC WOUND CULTURE & STN CPT-4: 41660 07/06/2016 CEFTRIAXONE SODIUM INJECTION CPT-4: J0696 05/25/2016 THER/PROPH/DIAG INJ SC/IM CPT-4: 24197 05/25/2016 THER/PROPH/DIAG INJ SC/IM CPT-4: 61082 04/26/2016 DEXAMETHASONE SODIUM PHOS CPT-4: J1100 04/26/2016 CEFTRIAXONE SODIUM INJECTION CPT-4: J0696 04/26/2016 THER/PROPH/DIAG INJ SC/IM CPT-4: 32772 04/26/2016 THER/PROPH/DIAG INJ SC/IM CPT-4: 94568 02/09/2016 TRIAMCINOLONE ACET INJ NOS CPT-4: J3301 02/09/2016 URINALYSIS NONAUTO W/O SCOPE CPT-4: 23982 01/24/2016 URINE CULTURE/ COLONY COUNT CPT-4: 43965 01/24/2016 THER/PROPH/DIAG INJ SC/IM CPT-4: 85158 12/08/2015 TRIAMCINOLONE ACET INJ NOS CPT-4: J3301 12/08/2015 THER/PROPH/DIAG INJ SC/IM CPT-4: 08607 10/07/2015 TRIAMCINOLONE ACET INJ NOS CPT-4: J3301 10/07/2015 DESTRUCT PREMALG LESION (Cryosurgery) CPT-4: 35224 THER/PROPH/DIAG INJ SC/IM CPT-4: 94079 03/16/2015 METHYLPREDNISOLONE 40 MG INJ CPT-4: J1030 03/16/2015 DESTRUCT PREMALG LESION (Cryosurgery) CPT-4: 90057 THER/PROPH/DIAG INJ SC/IM CPT-4: 88416 09/11/2014 METHYLPREDNISOLONE 40 MG INJ CPT-4: J1030 09/11/2014 TRIAMCINOLONE ACET INJ NOS CPT-4: J3301 09/11/2014 CEFTRIAXONE SODIUM INJECTION CPT-4: J0696 09/11/2014 THER/PROPH/DIAG INJ SC/IM CPT-4: 27422 09/11/2014 ROUTINE VENIPUNCTURE CPT-4: 61574 08/27/2014 COMPREHEN METABOLIC PANEL CPT-4: 81886 08/27/2014 COMPLETE CBC W/AUTO DIFF WBC CPT-4: 02173 08/27/2014 LIPID PANEL CPT-4: 80871 08/27/2014 ROUTINE VENIPUNCTURE CPT-4: 98331 07/21/2014 ASSAY OF AMYLASE CPT-4: 68201 07/21/2014 ASSAY OF LIPASE CPT-4: 91923 07/21/2014 THER/PROPH/DIAG INJ SC/IM CPT-4: 92220 07/15/2014 TRIAMCINOLONE ACET INJ NOS CPT-4: J3301 07/15/2014 ROUTINE VENIPUNCTURE CPT-4: 26060 05/14/2014 ASSAY OF FREE THYROXINE CPT-4: 95713 05/14/2014 ASSAY THYROID STIM HORMONE CPT-4: 43127 05/14/2014 COMPREHEN METABOLIC PANEL CPT-4: 94421 05/14/2014 COMPLETE CBC W/AUTO DIFF WBC CPT-4: 36376 05/14/2014 LIPID PANEL CPT-4: 46823 05/14/2014 CEFTRIAXONE SODIUM INJECTION CPT-4: J0696 04/21/2014 THER/PROPH/DIAG INJ SC/IM CPT-4: 44817 04/21/2014 THER/PROPH/DIAG INJ SC/IM CPT-4: 50954 04/21/2014 TRIAMCINOLONE ACET INJ NOS CPT-4: J3301 04/21/2014 THER/PROPH/DIAG INJ SC/IM CPT-4: 16556 03/04/2014 METHYLPREDNISOLONE 40 MG INJ CPT-4: J1030 03/04/2014 TRIAMCINOLONE ACET INJ NOS CPT-4: J3301 03/04/2014 CEFTRIAXONE SODIUM INJECTION CPT-4: J0696 03/04/2014 THER/PROPH/DIAG INJ SC/IM CPT-4: 01790 03/04/2014 TDAP VACCINE 7 YRS/> IM CPT-4: 83052 02/27/2014 IMMUNIZATION ADMIN CPT-4: 63968 02/27/2014 DESTRUCT PREMALG LESION (Cryosurgery) CPT-4: 14227 DESTRUCT PREMALG LES 2-14 CPT-4: 67305 01/13/2014 THER/PROPH/DIAG INJ SC/IM CPT-4: 17222 10/21/2013 METHYLPREDNISOLONE 40 MG INJ CPT-4: J1030 10/21/2013 TRIAMCINOLONE ACET INJ NOS CPT-4: J3301 10/21/2013 CEFTRIAXONE SODIUM INJECTION CPT-4: J0696 08/27/2013 THER/PROPH/DIAG INJ SC/IM CPT-4: 76066 08/27/2013 THER/PROPH/DIAG INJ SC/IM CPT-4: 31083 08/27/2013 METHYLPREDNISOLONE 40 MG INJ CPT-4: J1030 08/27/2013 TRIAMCINOLONE ACET INJ NOS CPT-4: J3301 08/27/2013 THER/PROPH/DIAG INJ SC/IM CPT-4: 05763 06/23/2013 METHYLPREDNISOLONE 40 MG INJ CPT-4: J1030 06/23/2013 TRIAMCINOLONE ACET INJ NOS CPT-4: J3301 06/23/2013 THER/PROPH/DIAG INJ SC/IM CPT-4: 93541 05/26/2013 METHYLPREDNISOLONE 40 MG INJ CPT-4: J1030 05/26/2013 TRIAMCINOLONE ACET INJ NOS CPT-4: J3301 05/26/2013 ROUTINE VENIPUNCTURE CPT-4: 77313 03/05/2013 ASSAY OF FREE THYROXINE CPT-4: 31582 03/05/2013 ASSAY THYROID STIM HORMONE CPT-4: 00954 03/05/2013 COMPREHEN METABOLIC PANEL CPT-4: 02476 03/05/2013 COMPLETE CBC W/AUTO DIFF WBC CPT-4: 79498 03/05/2013 A1C GLYCOSYLATED HEMOGLOBIN TEST CPT-4: 91758 013 DRAIN/INJECT JOINT/BURSA CPT-4: 02216 12/04/2012 METHYLPREDNISOLONE 40 MG INJ CPT-4: J1030 12/04/2012 TRIAMCINOLONE ACET INJ NOS CPT-4: J3301 12/04/2012 CEFTRIAXONE SODIUM INJECTION CPT-4: J0696 11/21/2012 THER/PROPH/DIAG INJ SC/IM CPT-4: 10149 11/21/2012 THER/PROPH/DIAG INJ SC/IM CPT-4: 10048 10/14/2012 METHYLPREDNISOLONE 40 MG INJ CPT-4: J1030 10/14/2012 TRIAMCINOLONE ACET INJ NOS CPT-4: J3301 10/14/2012 URINALYSIS NONAUTO W/O SCOPE CPT-4: 59820 09/27/2012 ROUTINE VENIPUNCTURE CPT-4: 09261 09/25/2012 ASSAY OF FREE THYROXINE CPT-4: 36834 09/25/2012 ASSAY THYROID STIM HORMONE CPT-4: 16547 09/25/2012 COMPREHEN METABOLIC PANEL CPT-4: 81658 09/25/2012 COMPLETE CBC W/AUTO DIFF WBC CPT-4: 74397 09/25/2012 C-REACTIVE PROTEIN CPT-4: 51757 09/25/2012 THER/PROPH/DIAG INJ SC/IM CPT-4: 23939 08/29/2012 METHYLPREDNISOLONE 40 MG INJ CPT-4: J1030 08/29/2012 TRIAMCINOLONE ACET INJ NOS CPT-4: J3301 08/29/2012 DESTRUCT PREMALG LESION (Cryosurgery) CPT-4: 64865 THER/PROPH/DIAG INJ SC/IM CPT-4: 99086 05/06/2012 METHYLPREDNISOLONE 40 MG INJ CPT-4: J1030 05/06/2012 TRIAMCINOLONE ACET INJ NOS CPT-4: J3301 05/06/2012 VITAMIN B 12 FOLIC ACID CPT-4: 62767|25679 05/06/2012 RBC SED RATE AUTOMATED CPT-4: 34357 05/06/2012 ROUTINE VENIPUNCTURE CPT-4: 49806 05/06/2012 ASSAY OF FREE THYROXINE CPT-4: 66608 05/06/2012 ASSAY THYROID STIM HORMONE CPT-4: 10660 05/06/2012 COMPREHEN METABOLIC PANEL CPT-4: 20897 05/06/2012 COMPLETE CBC W/AUTO DIFF WBC CPT-4: 77969 05/06/2012 ASSAY OF BLOOD/URIC ACID CPT-4: 08866 05/06/2012 THER/PROPH/DIAG INJ SC/IM CPT-4: 51772 03/19/2012 KETOROLAC TROMETHAMINE INJ CPT-4: J1885 03/19/2012 KETOROLAC TROMETHAMINE INJ CPT-4: J1885 01/30/2012 THER/PROPH/DIAG INJ SC/IM CPT-4: 78672 01/30/2012 PROMETHAZINE HCL INJECTION CPT-4: J2550 01/30/2012 THER/PROPH/DIAG INJ SC/IM CPT-4: 76178 01/24/2012 METHYLPREDNISOLONE 40 MG INJ CPT-4: J1030 01/24/2012 TRIAMCINOLONE ACET INJ NOS CPT-4: J3301 01/24/2012 THER/PROPH/DIAG INJ SC/IM CPT-4: 51384 09/13/2011 KETOROLAC TROMETHAMINE INJ CPT-4: J1885 09/13/2011 THER/PROPH/DIAG INJ SC/IM CPT-4: 90230 09/13/2011 PROMETHAZINE HCL INJECTION CPT-4: J2550 09/13/2011 CEFTRIAXONE SODIUM INJECTION CPT-4: J0696 07/20/2011 THER/PROPH/DIAG INJ SC/IM CPT-4: 31486 07/20/2011 THER/PROPH/DIAG INJ SC/IM CPT-4: 89413 07/20/2011 METHYLPREDNISOLONE INJECTION CPT-4: J2930 07/20/2011 URINALYSIS NONAUTO W/O SCOPE CPT-4: 11261 05/09/2011 CEFTRIAXONE SODIUM INJECTION CPT-4: J0696 05/09/2011 THER/PROPH/DIAG INJ SC/IM CPT-4: 55381 05/09/2011 THER/PROPH/DIAG INJ SC/IM CPT-4: 98708 05/09/2011 PROMETHAZINE HCL INJECTION CPT-4: J2550 05/09/2011 HYDRATION IV INFUSION INIT CPT-4: 99898 05/09/2011 DESTRUCT PREMALG LESION (Cryosurgery) CPT-4: 09001 DESTRUCT PREMALG LES 2-14 CPT-4: 06004 07/19/2010 REMOVAL OF SKIN TAGS <W/15 CPT-4: 17996 05/30/2010 THER/PROPH/DIAG INJ SC/IM CPT-4: 91545 04/05/2010 CEFTRIAXONE SODIUM INJECTION CPT-4: J0696 04/05/2010 TRIAMCINOLONE ACET INJ NOS CPT-4: J3301 04/05/2010 METHYLPREDNISOLONE 40 MG INJ CPT-4: J1030 04/05/2010 THER/PROPH/DIAG INJ SC/IM CPT-4: 69418 04/05/2010 TRIAMCINOLONE ACET INJ NOS CPT-4: J3301 03/09/2010 METHYLPREDNISOLONE 40 MG INJ CPT-4: J1030 03/09/2010 THER/PROPH/DIAG INJ SC/IM CPT-4: 08808 03/09/2010 THER/PROPH/DIAG INJ SC/IM CPT-4: 92798 03/09/2010 CEFTRIAXONE SODIUM INJECTION CPT-4: J0696 03/09/2010 Vital Signs Date Vital 05/28/2019 Blood Pressure 1: 126/82 Code: 8480-6 BMI: 35.0 Code: 32941-5 Heart Rate 1: 88 bpm Height: 5'4" [...] 1: 128/90 Code: 8480-6 BMI: 37.2 Code: 46099-9 Heart Rate 1: 84 bpm Height: 5'4" Respiratory Rate: 20 bpm SpO2: 95% Tempera ture: 36.6 (C) / 97.8 (F) Weight: 217 lbs 08/27/2018 Blood Pressure 1: 128/88 Code: 8480-6 BMI: 38.3 Code: 91629-9 Heart Rate 1: 84 bpm Height: 5'4" [...] 1: 119/72 Code: 8480-6 BMI: 37.4 Code: 03389-7 Heart Rate 1: 82 bpm Height: 5'4" Respiratory Rate: 12 bpm SpO2: 94% Tempera ture: 35.2 (C) / 95.4 (F) Weight: 218 lbs 12/18/2017 Blood Pressure 1: 128/86 Code: 8480-6 BMI: 37.8 Code: 37076-3 Heart Rate 1: 84 bpm Height: 5'4" [...] 1: 128/82 Code: 8480-6 BMI: 35.5 Code: 37206-2 Heart Rate 1: 84 bpm Height: 5'4" [...] 1: 128/82 Code: 8480-6 BMI: 30.2 Code: 56391-9 Heart Rate 1: 80 bpm Height: 5'4" [...] 1: 128/86 Code: 8480-6 BMI: 32.8 Code: 75870-6 Heart Rate 1: 66 bpm Height: 5'4" Respiratory Rate: 18 bpm Temperature: 36 .3 (C) / 97.3 (F) Weight: 191 lbs 06/23/2013 Blood Pressure 1: 132/94 Code: 8480-6 BMI: 34.0 Code: 96725-1 Heart Rate 1: 84 bpm Height: 5'4" Respiratory Rate: 20 bpm Temperature: 36 .8 (C) / 98.2 (F) Weight: 198 lbs 05/26/2013 Blood Pressure 1: 114/80 Code: 8480-6 BMI: 35.0 Code: 95635-0 Heart Rate 1: 80 bpm Height: 5'4" Respiratory Rate: 20 bpm Temperature: 36 .4 (C) / 97.6 (F) Weight: 204 lbs 04/16/2013 Blood Pressure 1: 114/82 Code: 8480-6 BMI: 36.7 Code: 32402-4 Heart Rate 1: 84 bpm Height: 5'4" Respiratory Rate: 20 bpm Temperature: 36 .7 (C) / 98.0 (F) Weight: 214 lbs 03/05/2013 Blood Pressure 1: 136/90 Code: 8480-6 BMI: 37.1 Code: 27052-3 Heart Rate 1: 84 bpm Height: 5'4" [...] 1: 168/114 Code: 8480-6 BMI: 36.2 Code: 74912-4 Heart Rate 1: 104 bpm Height: 5'4" Respiratory Rate: 20 bpm Temperature: 36 .8 (C) / 98.2 (F) Weight: 211 lbs 11/22/2012 Blood Pressure 1: 128/90 Code: 8480-6 Heart Rate 1: 88 bpm Respiratory Rate: 20 bpm SpO2: 96% Temperature: 36.8 (C) / 98.2 (F) 11/21/2012 Blood Pressure 1: 146/100 Code: 8480-6 BMI: 35.7 Code: 93142-6 Heart Rate 1: 96 bpm Height: 5'4" [...] 1: 138/100 Code: 8480-6 BMI: 35.7 Code: 52667-4 Heart Rate 1: 96 bpm Height: 5'4" Respiratory Rate: 20 bpm Temperature: 36 .8 (C) / 98.2 (F) Weight: 208 lbs 05/06/2012 Blood Pressure 1: 154/102 Code: 8480-6 BMI: 34.7 Code: 61776-9 Heart Rate 1: 116 bpm Height: 5'4" Respiratory Rate: 20 bpm Temperature: 36 .8 (C) / 98.2 (F) Weight: 202 lbs 04/03/2012 Blood Pressure 1: 134/94 Code: 8480-6 BMI: 34.8 Code: 56434-9 Heart Rate 1: 108 bpm Height: 5'4" Respiratory Rate: 20 bpm Temperature: 36 .8 (C) / 98.2 (F) Weight: 203 lbs 03/19/2012 Blood Pressure 1: 148/106 Code: 8480-6 BMI: 35.0 Code: 37521-9 Heart Rate 1: 100 bpm Height: 5'4" Respiratory Rate: 20 bpm Temperature: 36 .6 (C) / 97.9 (F) Weight: 204 lbs 02/22/2012 Blood Pressure 1: 146/94 Code: 8480-6 He art Rate 1: 88 bpm 02/21/2012 Blood Pressure 1: 172/120 Code: 8480-6 B lood Pressure 2: 152/106 Code: 8480-6 Heart Rate 1: 116 bpm 02/20/2012 Blood Pressure 1: 160/100 Code: 8480-6 BMI: 32.0 Code: 27871-9 Heart Rate 1: 84 bpm Height: 5'7" Temperature: 36.5 (C) / 97.7 (F) Weight: 204 lbs 01/30/2012 Blood Pressure 1: 152/110 Code: 8480-6 BMI: 32.0 Code: 78696-6 Heart Rate 1: 116 bpm Height: 5'7" Respiratory Rate: 20 bpm Temperature: 37 .0 (C) / 98.6 (F) Weight: 204 lbs 01/24/2012 Blood Pressure 1: 146/100 Code: 8480-6 BMI: 32.0 Code: 27383-3 Heart Rate 1: 100 bpm Height: 5'7" Respiratory Rate: 20 bpm Temperature: 36 .7 (C) / 98.0 (F) Weight: 204 lbs 01/10/2012 Blood Pressure 1: 156/94 Code: 8480-6 BMI: 32.6 Code: 51487-3 Heart Rate 1: 72 bpm Height: 5'7" Respiratory Rate: 20 bpm Temperature: 36 .8 (C) / 98.2 (F) Weight: 208 lbs 12/11/2011 Blood Pressure 1: 146/100 Code: 8480-6 Heart Rat e 1: 116 bpm Height: 5'7" Respiratory Rate: 20 bpm Temperature: 36.9 (C) / 98.4 (F) We ight: 11/09/2011 Blood Pressure 1: 148/96 Code: 8480-6 BMI: 32.1 Code: 80205-2 Heart Rate 1: 116 bpm Height: 5'7" Respiratory Rate: 20 bpm Temperature: 36 .7 (C) / 98.0 (F) Weight: 205 lbs 09/13/2011 Blood Pressure 1: 126/88 Code: 8480-6 Heart Rate 1: 88 bpm Height: 5'7" Respiratory Rate: 20 bpm Temperature: 36.9 (C) / 98.4 (F) We ight: 08/31/2011 Blood Pressure 1: 118/82 Code: 8480-6 BMI: 32.0 Code: 48747-0 Heart Rate 1: 80 bpm Height: 5'7" Temperature: 36.4 (C) / 97.6 (F) Weight: 204 lbs 07/06/2011 Blood Pressure 1: 128/86 Code: 8480-6 BMI: 30.9 Code: 93239-3 Heart Rate 1: 92 bpm Height: 5'7" Respiratory Rate: 20 bpm Temperature: 36 .9 (C) / 98.4 (F) Weight: 197 lbs 06/06/2011 Blood Pressure 1: 112/74 Code: 8480-6 BMI: 31.0 Code: 62409-9 Heart Rate 1: 72 bpm Height: 5'7" [...] 1: 128/92 Code: 8480-6 BMI: 33.6 Code: 82820-7 Heart Rate 1: 104 bpm Height: 5'4" [...] Encounters Encounter Performer Location Codes Date () NURSE/OUTPATIENT VISIT EST Diagnosis: Essential (primary) hypertension[ICD10: I10] Diagnosis: Cervicalgia[ICD10: M54.2] Diagnosis: Hyperglycemia, unspecified[ICD10: R73.9] Diagnosis: Mixed hyperlipidemia[ICD10: E78.2] María Elena APPIAH [facility] CPT-4: 50721 09/29/2019 ([id number]) OFFICE/OUTPATIENT VISIT EST Diagnosis: Essential (primary) hypertension[ICD10: I10] Diagnosis: Fall from bed, sequela[ICD10: W06.XXXS] María Elena APPIAH DO [facility] CPT-4: 79432 05/28/2019 ([id number]) NURSE/OUTPATIENT VISIT EST Diagnosis: Essential (primary) hypertension[ICD10: I10] María Elena APPIAH DO [facility] CPT-4: 34951 05/19/2019 ([id number]) OFFICE/OUTPATIENT VISIT EST Diagnosis: Essential (primary) hypertension[ICD10: I10] Diagnosis: Type 2 diabetes mellitus with hyperglycemia[ICD10: E11.65] Diagnosis: Intervertebral disc disorders with radiculopathy, 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] Diagnosis: Hormone replacement therapy[ICD10: Z79.890] María Elena APPIAH DO [facility] CPT-4: 40457 01/22/2019 ([id number]) OFFICE/OUTPATIENT VISIT EST Diagnosis: Essential (primary) hypertension[ICD10: I10] Diagnosis: Type 2 diabetes mellitus with hyperglycemia[ICD10: E11.65] María Elena APPIAH [facility] CPT-4: 44662 09/30/2018 ([id number]) OFFICE/OUTPATIENT VISIT EST Diagnosis: Pain in left elbow[ICD10: M25.522] Diagnosis: Acute stress reaction[ICD10: F43.0] Diagnosis: Primary insomnia[ICD10: F51.01] Diagnosis: Abnormal weight gain[ICD10: R63.5] María Elena APPIAH [facility] CPT-4: 84023 08/27/2018 ([id number]) OFFICE/OUTPATIENT VISIT EST Diagnosis: Acute recurrent sinusitis, unspecified[ICD10: J01.91] Diagnosis: Follicular disorder, unspecified[ICD10: L73.9] Diagnosis: Tinea corporis[ICD10: B35.4] María Elena APPIAH [facility] CPT-4: 86518 08/09/2018 ([id number]) OFFICE/OUTPATIENT VISIT EST Diagnosis: Tinea corporis[ICD10: B35.4] Diagnosis: Anxiety disorder, unspecified[ICD10: F41.9] Diagnosis: Menopausal and female climacteric states[ICD10: N95.1] María Elena APPIAH [facility] CPT-4: 75328 07/22/2018 ([id number]) NURSE/OUTPATIENT VISIT EST Diagnosis: Cellulitis of right toe[ICD10: L03.031] María Elena APPIAH DO [facility] CPT-4: 09306 06/19/2018 ([id number]) OFFICE/OUTPATIENT VISIT EST Diagnosis: Cellulitis of right toe[ICD10: L03.031] Kathleen APPIAH DO [facility] CPT-4: 31320 06/17/2018 ([id number]) OFFICE/OUTPATIENT VISIT EST Diagnosis: Migraine without aura, intractable, without status migrainosus[ICD10: G43.019] Diagnosis: Zoster without complications[ICD10: B02.9] Kathleen APPIAH DO [facility] CPT-4: 47679 05/16/2018 ([id number]) OFFICE/OUTPATIENT VISIT EST Diagnosis: Cellulitis of right lower limb[ICD10: L03.115] Kathleen APPIAH DO [facility] CPT-4: 60301 03/20/2018 ([id number]) OFFICE/OUTPATIENT VISIT EST Diagnosis: Cellulitis of right lower limb[ICD10: L03.115] Kathleen APPIAH DO [facility] CPT-4: 50354 03/18/2018 ([id number]) OFFICE/OUTPATIENT VISIT EST Diagnosis: Cellulitis of right lower limb[ICD10: L03.115] Kathleen APPIAH DO [facility] CPT-4: 34545 03/15/2018 ([id number]) OFFICE/OUTPATIENT VISIT EST Diagnosis: Acute sinusitis, unspecified[ICD10: J01.90] Kathleen APPIAH DO [facility] CPT-4: 55074 02/11/2018 ([id number]) NURSE/OUTPATIENT VISIT EST Diagnosis: Otitis media, unspecified, right ear[ICD10: H66.91] María Elena APPIAH DO [facility] CPT-4: 64465 02/01/2018 ([id number]) OFFICE/OUTPATIENT VISIT EST Diagnosis: Acute suppurative otitis media without spontaneous rupture of ear drum, left ear[ICD10: H66.002] Diagnosis: Abnormal weight gain[ICD10: R63.5] Diagnosis: Intervertebral disc disorders with radiculopathy, 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] Kathleen APPIAH DO [facility] CPT-4: 99 214 01/30/2018 ([id number]) PREV VISIT EST AGE 40-64 Diagnosis: Encounter for general adult medical examination without abnormal findings[ICD10: Z00.00] Diagnosis: Essential (primary) hypertension[ICD10: I10] Diagnosis: Mixed hyperlipidemia[ICD10: E78.2] Diagnosis: Type 2 diabetes mellitus with hyperglycemia[ICD10: E11.65] Diagnosis: 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] María Elena ELLISLINE Fabiola APPIAH [facility] CPT-4: 37517 12/18/2017 ([id number]) OFFICE/OUTPATIENT VISIT EST Diagnosis: Cellulitis of right toe[ICD10: L03.031] Diagnosis: Mixed hyperlipidemia[ICD10: E78.2] Diagnosis: Essential (primary) hypertension[ICD10: I10] Diagnosis: Hyperglycemia, unspecified[ICD10: R73.9] Diagnosis: Nontoxic goiter, 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] María Elena Seamusdawn MARÍA ELENA Fabiola APPIAH [facility] CPT-4: 14166 12/10/2017 ([id number]) OFFICE/OUTPATIENT VISIT EST Diagnosis: Cellulitis of right toe[ICD10: L03.031] Diagnosis: Acute sinusitis, unspecified[ICD10: J01.90] Kathleen APPIAH DO [facility] CPT-4: 90406 12/07/2017 OFFICE/OUTPATIENT VISIT EST Diagnosis: Acute maxillary sinusitis, unspecified[ICD10: J01.00] Kathleen APPIAH [facility] CPT-4: 85585 10/08/2017 ([id number]) OFFICE/OUTPATIENT VISIT EST Diagnosis: Cellulitis of left toe[ICD10: L03.032] María Elena MARIN Fabiola APPIAH [facility] CPT-4: 18314 09/21/2017 ([id number]) OFFICE/OUTPATIENT VISIT EST Diagnosis: Insomnia, unspecified[ICD10: G47.00] Diagnosis: Major depressive disorder, single episode, unspecified[ICD10: F32.9] Diagnosis: Anxiety disorder, unspecified[ICD10: F41.9] Diagnosis: Cellulitis of left toe[ICD10: L03.032] Diagnosis: Snoring[ICD10: R06.83] Kathleen APPIAH DO [facility] CPT-4: 65427 09/20/2017 ([id number]) OFFICE/OUTPATIENT VISIT EST Diagnosis: Cellulitis of left toe[ICD10: L03.032] María Elena Seamusdawn MARLIN APPIAH 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] Diagnosis: Primary insomnia[ICD10: F51.01] Diagnosis: Other fatigue[ICD10: R53.83] María Elena ELLISLINE LucioJj TD [facility] CPT-4: 39866 04/10/2017 ([id number]) OFFICE/OUTPATIENT VISIT EST Diagnosis: Primary insomnia[ICD10: F51.01] Diagnosis: Localized edema[ICD10: R60.0] Diagnosis: 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] María Elena Seamusdawn MARÍA ELENA LucioJj TD [facility] CPT-4: 10302 12/13/2016 ([id number]) OFFICE/OUTPATIENT VISIT EST Diagnosis: Primary insomnia[ICD10: F51.01] Diagnosis: Cyanosis[ICD10: R23.0] María Elena Seamusdawn MONTEROMARÍA ELENA LucioJj CIRO Bazzi [facility] CPT-4: 80283 11/01/2016 ([id number]) PREV VISIT EST AGE 40-64 Diagnosis: Encounter for gynecological examination (general) (routine) without abnormal findings[ICD10: Z01.419] Diagnosis: Encounter for routine child health examination without abnormal findings[ICD10: Z00.129] María Elena APPIAH DO [employer] CPT-4: 24237 10/17/2016 ([id number]) OFFICE/OUTPATIENT VISIT EST Diagnosis: Other seasonal allergic rhinitis[ICD10: J30.2] María Elena APPIAH DO [facility] CPT-4: 51255 10/10/2016 ([id number]) OFFICE/OUTPATIENT VISIT EST Diagnosis: Pain in left arm[ICD10: M79.602] Diagnosis: Contact with and (suspected) exposure to potentially hazardous body fluids[ICD10: Z77.21] Diagnosis: 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, 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] Diagnosis: Unspecified open wound, right foot, sequela[ICD10: S91.301S] María Elena APPIAH DO [employer] CPT-4: 48418 09/19/2016 ([id number]) OFFICE/OUTPATIENT VISIT EST Diagnosis: Chronic sinusitis, unspecified[ICD10: J32.9] Diagnosis: Allergic rhinitis due to pollen[ICD10: J30.1] María Elena APPIAH DO [employer] CPT-4: 18377 08/24/2016 ([id number]) OFFICE/OUTPATIENT VISIT EST Diagnosis: Acute bronchitis, unspecified[ICD10: J20.9] María Elena APPIAH DO [employer] CPT-4: 47185 08/16/2016 ([id number]) OFFICE/OUTPATIENT VISIT EST Diagnosis: Otitis media, unspecified, right ear[ICD10: H66.91] Diagnosis: Acute bronchitis, unspecified[ICD10: J20.9] María Elena APPIAH DO [employer] CPT-4: 71844 08/10/2016 ([id number]) OFFICE/OUTPATIENT VISIT EST Diagnosis: Acute recurrent sinusitis, unspecified[ICD10: J01.91] Diagnosis: Allergic rhinitis due to pollen[ICD10: J30.1] María Elena APPIAH DO [facility] CPT-4: 00825 08/02/2016 ([id number]) OFFICE/OUTPATIENT VISIT EST Diagnosis: Pain in unspecified joint[ICD10: M25.50] María Elena APPIAH DO [facility] CPT-4: 19450 07/27/2016 OFFICE/OUTPATIENT VISIT EST Diagnosis: 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] Diagnosis: Acute recurrent sinusitis, unspecified[ICD10: J01.91] Diagnosis: Other fatigue[ICD10: R53.83] Diagnosis: Primary insomnia[ICD10: F51.01] Diagnosis: Pain in unspecified joint[ICD10: M25.50] María Elena APPIAH [facility] CPT-4: 33924 07/20/2016 ([id number]) OFFICE/OUTPATIENT VISIT EST Diagnosis: Blister (nonthermal), left great toe, initial encounter[ICD10: S90.422A] Loan APPIAH DO [facility] CPT-4: 52044 ([id number]) OFFICE/OUTPATIENT VISIT EST Diagnosis: Acute recurrent sinusitis, unspecified[ICD10: J01.91] María Elena APPIAH DO [facility] CPT-4: 08643 05/25/2016 ([id number]) OFFICE/OUTPATIENT VISIT EST Diagnosis: Acute sinusitis, unspecified[ICD10: J01.90] María Elena APPIAH DO [facility] CPT-4: 71953 04/26/2016 ([id number]) OFFICE/OUTPATIENT VISIT EST Diagnosis: Flushing[ICD10: R23.2] Diagnosis: Primary insomnia[ICD10: F51.01] María Elena APPIAH DO [facility] CPT-4: 91591 03/02/2016 ([id number]) OFFICE/OUTPATIENT VISIT EST Diagnosis: Other seasonal allergic rhinitis[ICD10: J30.2] Loan APPIAH DO [facility] CPT-4: 43987 02/09/2016 ([id number]) OFFICE/OUTPATIENT VISIT EST Diagnosis: Primary insomnia[ICD10: F51.01] Diagnosis: Urinary tract infection, site not specified[ICD10: N39.0] María Elena [facility] CPT-4: 12699 01/24/2016 ([id number]) OFFICE/OUTPATIENT VISIT EST Diagnosis: Other specified disorders of Eustachian tube, bilateral[ICD10: H69.83] Diagnosis: Allergic rhinitis, unspecified[ICD10: J30.9] Loan APPIAH [facility] CPT-4: 75306 12/23/2015 ([id number]) OFFICE/OUTPATIENT VISIT EST Diagnosis: Acute recurrent sinusitis, unspecified[ICD10: J01.91] Diagnosis: 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] Diagnosis: Allergic rhinitis, unspecified[ICD10: J30.9] María Elena Td ELLISLINE Fabiola APPIA[facility] CPT-4: 21385 12/08/2015 ([id number]) OFFICE/OUTPATIENT VISIT EST Diagnosis: Allergic rhinitis, unspecified[ICD10: J30.9] Diagnosis: Pain in unspecified joint[ICD10: M25.50] María Elena APPIAH [facility] CPT-4: 23764 10/07/2015 ([id number]) OFFICE/OUTPATIENT VISIT EST Diagnosis: Essential (primary) hypertension[ICD10: I10] María Elena dT ELLISLINE Fabiola [facility] CPT-4: 03417 10/06/2015 OFFICE/OUTPATIENT VISIT EST Diagnosis: Localized enlarged lymph nodes[ICD10: R59.0] Diagnosis: Local infection of the skin and subcutaneous tissue, unspecified[ICD10: L08.9] June Flores MARÍA ELENA [facility] CPT- 4: 77718 09/14/2015 ([id number]) OFFICE/OUTPATIENT VISIT EST Diagnosis: Essential (primary) hypertension[ICD10: I10] Diagnosis: Actinic keratosis[ICD10: L57.0] María Elena Td ELLISLINE Fabiola [facility] CPT-4: 45435 09/07/2015 ([id number]) OFFICE/OUTPATIENT VISIT EST Diagnosis: Essential (primary) hypertension[ICD10: I10] Diagnosis: Acute stress reaction[ICD10: F43.0] María Elena COLON Fabiola [facility] CPT-4: 16758 08/18/2015 ([id number]) OFFICE/OUTPATIENT VISIT EST Diagnosis: Essential (primary) hypertension[ICD10: I10] María Elena APPIAH DO [facility] CPT-4: 48067 07/07/2015 ([id number]) OFFICE/OUTPATIENT VISIT EST Diagnosis: Essential (primary) hypertension[ICD10: I10] María Elena APPIAH DO [facility] CPT-4: 88751 06/24/2015 ([id number]) OFFICE/OUTPATIENT VISIT EST Diagnosis: Essential (primary) hypertension[ICD10: I10] María Elena APPIAH DO [facility] CPT-4: 87714 06/21/2015 ([id number]) OFFICE/OUTPATIENT VISIT EST Diagnosis: Essential (primary) hypertension[ICD10: I10] Diagnosis: Mixed hyperlipidemia[ICD10: E78.2] Diagnosis: Acute stress reaction[ICD10: F43.0] Diagnosis: Primary insomnia[ICD10: F51.01] María Elena APPIAH DO [facility] CPT-4: 68073 06/16/2015 ([id number]) OFFICE/OUTPATIENT VISIT EST Diagnosis: INSOMNIA NOS[ICD9: 780.52] Diagnosis: HYPERTENSION[ICD9: 401.9] Diagnosis: Stress reaction[ICD9: 308.9] María Elena APPIAH DO [facility] CPT-4: 70581 06/02/2015 ([id number]) OFFICE/OUTPATIENT VISIT EST Diagnosis: HYPERTENSION[ICD9: 401.9] Diagnosis: Stress reaction[ICD9: 308.9] María Elena APPIAH DO [facility] CPT-4: 07541 05/20/2015 ([id number]) OFFICE/OUTPATIENT VISIT EST Diagnosis: Skin lesion[ICD9: 709.9] 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 CPT-4: 58838 09/11/2014 ([id number]) OFFICE/OUTPATIENT VISIT EST Diagnosis: HYPERLIPIDEMIA NEC/NOS[ICD9: 272.4] María Elena [facility] DO [facility] CPT-4: 51389 08/31/2014 ([id number]) OFFICE/OUTPATIENT VISIT EST Diagnosis: - I - HYPERTENSION[ICD9: 401.9] Diagnosis: HYPERLIPIDEMIA NEC/NOS[ICD9: 272.4] María Elena [facility] CPT-4: 10089 08/27/2014 ([id number]) OFFICE/OUTPATIENT VISIT EST Diagnosis: ABDOMINAL PAIN[ICD9: 789.00] Diagnosis: DYSPEPSIA[ICD9: 536.8] Diagnosis: Thoracic back pain[ICD9: 724.1] María Elena [facility] CPT-4: 04102 07/21/2014 ([id number]) OFFICE/OUTPATIENT VISIT EST Diagnosis: ALLERGIC RHINITIS[ICD9: 477.9] María Elena [facility] CPT-4: 99649 07/15/2014 ([id number]) OFFICE/OUTPATIENT VISIT EST Diagnosis: EDEMA[ICD9: 782.3] Diagnosis: Chronic insomnia[ICD9: 780.52] María Elena [facility] CPT-4: 53109 05/18/2014 ([id number]) OFFICE/OUTPATIENT VISIT EST Diagnosis: Thyromegaly[ICD9: 240.9] Diagnosis: - I - HYPERTENSION[ICD9: 401.9] Diagnosis: ROUTINE MEDICAL EXAM[ICD9: V70.0] Diagnosis: EDEMA[ICD9: 782.3] María Elena [facility] CPT-4: 90721 05/14/2014 OFFICE/OUTPATIENT VISIT EST Diagnosis: BRONCHITIS, ACUTE[ICD9: 466.0] Diagnosis: SINUSITIS, ACUTE[ICD9: 461.9] María Elena 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] Diagnosis: ALLERGIC RHINITIS[ICD9: 477.9] Diagnosis: Serous otitis media[ICD9: 381.4] María Elena [facility] CPT-4: 27726 12/24/2013 ([id number]) OFFICE/OUTPATIENT VISIT EST Diagnosis: SINUSITIS, ACUTE[ICD9: 461.9] Diagnosis: ALLERGIC RHINITIS[ICD9: 477.9] Diagnosis: 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 CPT-4: 78419 08/04/2013 ([id number]) OFFICE/OUTPATIENT VISIT EST Diagnosis: Cervicalgia[ICD9: 723.1] Diagnosis: SPASM OF MUSCLE[ICD9: 728.85] Diagnosis: CEPHALGIA, TENSION[ICD9: 307.81] María Elena APPIAH 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 CPT-4: 55852 05/26/2013 ([id number]) OFFICE/OUTPATIENT VISIT EST Diagnosis: HYPERTENSION[ICD9: 401.9] Diagnosis: EDEMA[ICD9: 782.3] Diagnosis: Serous otitis media[ICD9: 381.4] María Elena APPIAH [facility] CPT-4: 30608 04/16/2013 ([id number]) OFFICE/OUTPATIENT VISIT EST Diagnosis: SINUSITIS, ACUTE[ICD9: 461.9] Diagnosis: ALLERGIC RHINITIS[ICD9: 477.9] Diagnosis: EDEMA[ICD9: 782.3] Diagnosis: Thyromegaly[ICD9: 240.9] Diagnosis: MALAISE AND FATIGUE[ICD9: 780.79] María Elena Lopez Fabiola APPIAH [facility] CPT-4: 42889 03/05/2013 ([id number]) OFFICE/OUTPATIENT VISIT EST Diagnosis: PAIN, LOWER BACK[ICD9: 724.2] Diagnosis: SPASM OF MUSCLE[ICD9: 728.85] María Elena JUARES LucioJj [facility] CPT-4: 38869 12/23/2012 OFFICE/OUTPATIENT VISIT EST Diagnosis: Low back pain[ICD9: 724.2] Lashawn Hicks [facility] C[facility]: 96702 12/16/2012 ([id number]) OFFICE/OUTPATIENT VISIT EST Diagnosis: PAIN, LOWER BACK[ICD9: 724.2] Diagnosis: SCIATICA[ICD9: 724.3] Diagnosis: Lumbar herniated disc[ICD9: 722.10] María Elena COLON LucioJj [facility] CPT-4: 52580 12/09/2012 ([id number]) OFFICE/OUTPATIENT VISIT EST Diagnosis: PAIN, LOWER BACK[ICD9: 724.2] Diagnosis: SCIATICA[ICD9: 724.3] Diagnosis: LUMBAR DISC DISPLACEMENT[ICD9: 722.10] María Elena MARIN LucioJj [facility] CPT-4: 73475 12/04/2012 OFFICE/OUTPATIENT VISIT EST Diagnosis: Pneumonia[ICD9: 486] Mary JUARES LucioJj [facility] CPT-4: 28636 11/22/2012 ([id number]) OFFICE/OUTPATIENT VISIT EST Diagnosis: PNEUMONIA, ORGANISM[ICD9: 486] Diagnosis: Exacerbation of RAD (reactive airway disease)[ICD9: 493.92] María Elena JUARES LucioJj [facility] CPT-4: 32824 11/21/2012 OFFICE/OUTPATIENT VISIT EST Diagnosis: HYPERTENSION[ICD9: 401.9] Diagnosis: Cephalgia[ICD9: 784.0] Lashawn Hicks TD [facility] CPT-4: 09970 10/29/2012 ([id number]) OFFICE/OUTPATIENT VISIT EST Diagnosis: MALAISE AND FATIGUE[ICD9: 780.79] Diagnosis: ARTHRALGIA-MULTIPLE SITES[ICD9: 719.49] María Elena APPIAH DO [facility] CPT-4: 69900 10/14/2012 ([id number]) OFFICE/OUTPATIENT VISIT EST Diagnosis: URINARY FREQUENCY[ICD9: 788.41] María Elena Seamusmindimaryjane ValdesJj TD [facility] CPT-4: 26667 09/27/2012 ([id number]) OFFICE/OUTPATIENT VISIT EST Diagnosis: MALAISE AND FATIGUE[ICD9: 780.79] Diagnosis: ARTHRALGIA-MULTIPLE SITES[ICD9: 719.49] María Elena Seamusmindimaryjane ValdesJj TD [facility] CPT-4: 14467 09/25/2012 ([id number]) OFFICE/OUTPATIENT VISIT EST Diagnosis: SINUSITIS, ACUTE[ICD9: 461.9] Diagnosis: 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 CPT-4: 72782 08/12/2012 ([id number]) OFFICE/OUTPATIENT VISIT EST Diagnosis: ARTHRALGIA-MULTIPLE SITES[ICD9: 719.49] Diagnosis: GOUT[ICD9: 274.9] Diagnosis: HYPERTENSION[ICD9: 401.9] Diagnosis: Tachycardia[ICD9: 785.0] María Elenamarcella JUARES LucioJj FRITZTaiwo [facility] CPT-4: 16546 05/06/2012 ([id number]) OFFICE/OUTPATIENT VISIT EST Diagnosis: INSOMNIA NOS[ICD9: 780.52] María Elena Hicks [facility] CPT-4: 04518 04/03/2012 ([id number]) OFFICE/OUTPATIENT VISIT EST Diagnosis: INSOMNIA NOS[ICD9: 780.52] Diagnosis: HYPERTENSION[ICD9: 401.9] Diagnosis: MIGRAINE NOS/NOT INTRCBL[ICD9: 346.90] María Elena MARIN LucioJj TD [facility] CPT-4: 04030 03/19/2012 ([id number]) OFFICE/OUTPATIENT VISIT EST Diagnosis: CELLULITIS[ICD9: 682.9] Diagnosis: Ankle pain[ICD9: 719.47] Diagnosis: HYPERTENSION[ICD9: 401.9] María Elena Hicks [facility] CPT-4: 64204 02/20/2012 ([id number]) OFFICE/OUTPATIENT VISIT EST Diagnosis: MIGRAINE NOS/NOT INTRCBL[ICD9: 346.90] Diagnosis: Vomiting[ICD9: 787.03] María Elena Hicks SEAMUSGALINA [facility]az[facility] CPT-4: 25345 01/30/2012 ([id number]) OFFICE/OUTPATIENT VISIT EST Diagnosis: EDEMA[ICD9: 782.3] Diagnosis: HYPERTENSION[ICD9: 401.9] Diagnosis: ALLERGIC RHINITIS[ICD9: 477.9] Diagnosis: ARTHRALGIA-MULTIPLE SITES[ICD9: 719.49] María Elena Hicks [facility] CPT-4: 30054 01/24/2012 ([id number]) OFFICE/OUTPATIENT VISIT EST Diagnosis: SPASM OF MUSCLE[ICD9: 728.85] Diagnosis: Thoracic back pain[ICD9: 724.1] Diagnosis: Cervical pain[ICD9: 723.1] María Elena Hicks KRISTYN [facility]UMTAZ [facility] CPT-4: 66130 01/10/2012 OFFICE/OUTPATIENT VISIT EST Diagnosis: PAIN, LOWER BACK[ICD9: 724.2] Diagnosis: LUMBAR DISC DISPLACEMENT[ICD9: 722.10] María Elena MARIN LucioJj TD [facility] CPT-4: 67544 12/11/2011 OFFICE/OUTPATIENT VISIT EST Diagnosis: MIGRAINE NOS/NOT INTRCBL[ICD9: 346.90] Diagnosis: SINUSITIS, ACUTE[ICD9: 461.9] María Elena APPIAH DO [facility] CPT-4: 70575 11/09/2011 OFFICE/OUTPATIENT VISIT EST Diagnosis: MIGRAINE NOS/NOT INTRCBL[ICD9: 346.90] Diagnosis: LYMPHADENOPATHY[ICD9: 785.6] María Elena APPIAH DO [facility] CPT-4: 43515 09/13/2011 OFFICE/OUTPATIENT VISIT EST Diagnosis: MALAISE AND FATIGUE[ICD9: 780.79] Diagnosis: ARTHRALGIA-MULTIPLE SITES[ICD9: 719.49] María Elena APPIAH DO [facility] CPT-4: 84819 08/31/2011 OFFICE/OUTPATIENT VISIT EST Diagnosis: SINUSITIS, ACUTE[ICD9: 461.9] María Elena APPIAH DO [facility] CPT-4: 61623 07/20/2011 OFFICE/OUTPATIENT VISIT EST Diagnosis: HYPERTENSION[ICD9: 401.9] Diagnosis: PAIN, LOWER BACK[ICD9: 724.2] Diagnosis: SPASM OF MUSCLE[ICD9: 728.85] María Elena APPIAH DO [facility] CPT-4: 98320 07/06/2011 OFFICE/OUTPATIENT VISIT EST Diagnosis: MIGRAINE NOS/NOT INTRCBL[ICD9: 346.90] Diagnosis: HYPERTENSION[ICD9: 401.9] María Elena [facility] CPT-4: 63045 05/22/2011 OFFICE/OUTPATIENT VISIT EST Diagnosis: SINUSITIS, ACUTE[ICD9: 461.9] Diagnosis: MIGRAINE NOS/NOT INTRCBL[ICD9: 346.90] Diagnosis: Dehydration[ICD9: 276.51] Diagnosis: Vomiting[ICD9: 787.03] María Elena Seamusmindimaryjane ELLISMARÍA ELENA LucioJj CIRO Bazzi [facility] CPT-4: 62379 05/09/2011 ([id number]) OFFICE/OUTPATIENT VISIT EST María Elena Td APPIAH DO [facility] CPT-4: 71573 02/14/2011 ([id number]) OFFICE/OUTPATIENT VISIT EST María Elena Seamusmindimaryjane MARLIN CulverJARED APPIAH [facility] CPT-4: 58137 02/03/2011 ([id number]) OFFICE/OUTPATIENT VISIT EST María Elena [facility] CPT-4: 18563 01/31/2011 ([id number]) OFFICE/OUTPATIENT VISIT EST María Elena [facility] CPT-4: 82052 01/25/2011 ([id number]) OFFICE/OUTPATIENT VISIT EST María Elena [facility]AC [facility] CPT-4: 91203 01/18/2011 ([id number]) OFFICE/OUTPATIENT VISIT EST María Elena [facility]AAC [facility] CPT-4: 74337 11/29/2010 ([id number]) OFFICE/OUTPATIENT VISIT, EST María Elena MONTERO [facility] CPT-4: 07186 10/10/2010 ([id number]) OFFICE/OUTPATIENT VISIT, EST María Elena [facility] CPT-4: 59278 06/07/2010 ([id number]) OFFICE/OUTPATIENT VISIT, EST María Elena [facility] CPT-4: 78314 04/27/2010 ([id number]) OFFICE/OUTPATIENT VISIT, EST María Elena [facility] CPT-4: 45006 04/05/2010 ([id number]) OFFICE/OUTPATIENT VISIT, EST María Elena [facility]O [facility] CPT-4: 26676 03/09/2010 ([id number]) OFFICE/OUTPATIENT VISIT, EST María Elena [facility] CPT-4: 08358 03/03/2010 ([id number]) OFFICE/OUTPATIENT VISIT, EST María Elena [facility] CPT-4: 50965 01/17/2010 ([id number]) PREV VISIT, EST, AGE 40-64 María Elena [facility] CPT-4: 72992 12/27/2009 Plan of Care Planned Activity Notes Codes Status Date Appointment: María Elena Appiah WPtel: [address] [place], [place] [phone] [place] Won't have the new insurance till [...] W06.XXXS 05/28/2019 Appointment: María Elena Appiah WPtel: [address] [place], [place] [phone] [place] FOLLOW UP 05/28/2019 Appointment: María Elena Appiah WPtel: [address] [place], [place] [phone] [place] BP CHECK 05/19/2019 Visit Diagnosis Plan: [...] Z79.890 01/22/2019 Appointment: María Elena Appiah WPtel: [address] [place], [place] [phone] [place] FOLLOW UP 01/22/2019 Patient Education: estradiol- [employer] Coupon [id number] https://www.[employer]/sampleLively/resources/getResource/61/056w525g-2mr1-2b79-3v Completed 01/22/2019 Appointment: María Elena Appiah WPtel: [address] [place] [address] [place] CANCELED 01/20/2019 Appointment: María Elena Appiah WPtel: [address] [place] [address] [place] LM NO SHOW 01/06/2019 Appointment: María Elena Appiah WPtel: [address] [place] [address] [place] CANCELED 10/17/2018 Appointment: María Elena Appiah WPtel: [address] [place] [address] [place] BP CHECK 10/09/2018 Visit Diagnosis Plan: [...] I10 09/30/2018 Appointment: María Elena Appiah WPtel: [address] [place] [address] [place] FOLLOW UP 09/30/2018 Visit Diagnosis Plan: [...] F51.01 08/27/2018 Appointment: María Elena Appiah WPtel: [address] [place] [address] [place] ACUTE ILLNESS 08/27/2018 Appointment: María Elena Appiah WPtel: [address] [place], [place] [phone] [place] Patient stated she went out to [...] Tyle... 08/09/2018 Appointment: María Elena Appiah WPtel: [address] [place] [address] ACUTE ILLNESS 08/09/2018 Appointment: María Elena Appiah WPtel: [address] [place], [place] [phone] NO SHOW 08/08/2018 Visit Diagnosis Plan: Anxiety [...] B35.4 07/22/2018 Appointment: María Elena Appiah WPtel: [address] [place], [place] [phone] ACUTE ILLNESS 07/22/2018 Appointment: María Elena Appiahl: [phone] [id number] [place] INJECTION 06/19/2018 Patient Education: Patient Medication [...] ICD-10 : L03.031 06/17/2018 Appointment: Kathleen Zuniga [address] [place] [address] ACUTE ILLNESS 06/17/2018 Patient Education: Patient Medication [...] : B02.9 05/16/2018 Appointment: Kathleen Zuniga [address] [place], [place] [phone] ACUTE ILLNESS 05/16/2018 Patient Education: Patient Medication [...] ICD-10 : L03.115 03/20/2018 Appointment: Kathleen Zuniga [address] [place], [place] [address] FOLLOW UP 03/20/2018 Patient Education: Patient Medication [...] : L03.115 03/18/2018 Appointment: Kathleen Zuniga [address] [place] [address] FOLLOW UP 03/18/2018 Patient Education: Patient Medication [...] ICD-10 : L03.115 03/15/2018 Appointment: Kathleen Zuniga [address] [place], [place] [address] ACUTE ILLNESS 03/15/2018 Patient Education: Patient Medication [...] ICD-10 : J01.90 02/11/2018 Appointment: Kathleen Zuniga [address] [place], [place] [address] ACUTE ILLNESS 02/11/2018 Patient Education: Patient Medication Summary Completed 02/11/2018 Appointment: María Elena Appiah WPtel: [phone] [id number] [place] INJECTION 02/01/2018 Patient Education: Patient Medication [...] ICD-10 : M51.16 01/30/2018 Appointment: Kathleen Zuniga [address] [place], [place] [id number] ACUTE ILLNESS 01/30/2018 Patient Education: [...] 12/18/2017 Appointment: María Elena Appiah WPtel: [phone] Annual Well Visit 12/18/2017 Patient Education: Patient Medication Summary Completed 12/18/2017 Care Plan: Referral Order SNOMED-CT : [id number] Pending 12/18/2017 Appointment: María Elena Appiah WPtel: [phone] [place] [address] [place] INJECTION 12/10/2017 Patient Education: Patient Medication [...] : L03.031 12/07/2017 Appointment: Kathleen Zuniga [address] [place] [address] ACUTE ILLNESS 12/07/2017 Patient Education: Patient Medication [...] : J01.00 10/08/2017 Appointment: Kathleen Zuniga [address] ACUTE ILLNESS 10/08/2017 Patient Education: Patient Medication Summary Completed 10/08/2017 Appointment: María Elena Appiah WPtel[facility] [phone] [id number] [place] INJECTION 09/21/2017 Patient Education: Patient Medication [...] : R06.83 09/20/2017 Appointment: Kathleen Zuniga [address] [place], [place] [phone] ACUTE ILLNESS 09/20/2017 Patient Education: Patient Medication [...] ICD-10 : L60.0 08/29/2017 Appointment: Kathleen Zuniga [address] [place] [address] OFFICE SURGERY 08/29/2017 Patient Education: Patient Medication Summary Completed 08/29/2017 Visit Diagnosis Plan: Actinic keratosis Discussion: Cr yotherapy as above ICD-9 : 702.0 ICD-10 : L57.0 08/01/2017 Appointment: María Elena Appiah WPtel: [address] [place] [address] OFFICE SURGERY 08/01/2017 Patient Education: Patient Medication Summary Completed 08/01/2017 Appointment: María Elena Appiah WPtel: [address] [place] [address] PATIENT THOUGHT APPOINTMENT WAS TOMORROW 07/26/17 CALLED 15 MINUTES BEFORE APPT TO SAY SHE DIDN'T HAVE ANYONE TO COVER HER BUSINESS AND WOULD NOT MAKE IT NO SHOW 07/25/2017 Visit Diagnosis Plan: Cellulitis of left toe Discussio n: Clindamycin and notify if worsening or persistis ICD-9 : 681.10 ICD-10 : L03.032 07/19/2017 Appointment: María Elena Appiah WPtel: [address] [place], [place] [phone] MEDICATION REVIEW 07/19/2017 Patient Education: Patient Medication Summary Completed 07/19/2017 Appointment: María Elena Appiah WPtel: [address] [place] [address] [place] CANCELED 07/04/2017 Visit Diagnosis Plan: Generalized hyperhidrosis Discus ian: CBC, CMP, TSH, free T4 ordered to assess. will review labs. ICD-9 : 780.8 ICD-10 : R61 06/27/2017 Visit Diagnosis Plan: Chronic sinusitis, unspecified D iscussion: Referral sent to dr. albar[place] per patient request. patient has been treated multiple times for sinus infections with no recovery. patient was seen by dr sanchez in the past with no interventions. patient has deviated septum which may be affecting her sinuses. 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, including hip Discussion: Shave removal of above lesio n--sent to pathology ICD-9 : 216.7 ICD-10 : D23.72 01/24/2017 Appointment: María Elena Appiah WPtel: [address] [place], [place] [phone] 01/23 confirmed ~sl OFFICE SURGERY 01/24/2017 Patient Education: Patient Medication Summary Completed 01/24/2017 Appointment: Loan Sánchez [address] [place], [place] [phone] 01/09 rescheduled~sl RESCHEDULED 01/15/2017 Visit [...] L81.4 12/13/2016 Appointment: María Elena Appiah WPtel: [address] [place], [place] [phone] 12/12 confirmed ~sl MEDICATION REVIEW 12/13/2016 Patient Education: Patient Medication Summary Completed 12/13/2016 Appointment: María Elena Appiah WPtel: [address] [place], [place] [phone] [place] rescheduled for 12/13/16 at 11am RESCHEDULED 0 12/06/2016 Appointment: María Elena Appiah WPtel: [address] [place] [phone] [place] CANCELED 11/23/2016 Patient Education: Patient Medication [...] F51.01 11/01/2016 Appointment: María Elena Appiah WPtel: [address] [place], [place] [phone] [place] 10/31 lm `sl 11/01 lm`sl MEDICATION REVIEW 017 Patient Education: Patient Medication Summary Completed 11/01/2016 Referral: Canelo Overton WPtel: [phone] [id number] Referral Initiated 10/30/2016 Visit Diagnosis Plan: Encounter [...] Z01.419 10/17/2016 Appointment: María Elena Appiah WPtel: [address] [place], [place] [phone] 10/16 confirmed ~sl PAP 10/17/2016 Patient Education: Patient Medication Summary Completed 10/17/2016 Care Plan: MAMMOGRAM SCREENING LOINC : 2 6347-5 Pending 10/17/2016 Visit Diagnosis Plan: Other seasonal allergic rhinitis Discussion: Decadron/Garamycin Nasal [place] Mix Too soon for steroid Retry zyrtec 10mg daily ICD-9 : 477.9 ICD-10 : J30.2 10/10/2016 Appointment: María Elena Appiah WPtel: [address] [place], [place] [phone] [place] FOLLOW UP 10/10/2016 Patient Education: Patient Medication Summary Completed 10/10/2016 Appointment: María Elena Appiah WPtel: [address] [place], [place] [phone] 10/02 reschedule `sl RESCHEDULED 10/02/2016 Visit Plan: See surgery for removal of n ew left arm lesion and right foot lesion Lyrica to use next month for left arm paresthesias Continue current meds Discussed sunscreen/sunblock combo 09/19/2016 Appointment: María Elena Appiahl: [address] [place] [address] 09/18 confirmed ~sl FOLLOW UP 09/19/2016 Patient Education: Patient Medication Summary Completed 09/19/2016 Patient Education: Patient Medication Summary Completed 09/18/2016 Care Plan: MAMMOGRAM BOTH BREASTS LOINC : 01171-8 Pending 09/18/2016 Visit Plan: Discussed that needs [...] sinuses 08/24/2016 Appointment: María Elena Appiah WPtel: [address] [place] [address] ACUTE ILLNESS 08/24/2016 Patient Education: Patient Medication Summary Completed 08/24/2016 Patient Education: Patient Medication Summary Completed 08/23/2016 Care Plan: MAMMOGRAM SCREENING LOINC : 2 6347-5 Pending 08/23/2016 Visit Plan: Finish doxycycline Add Breo 100/25 1 p BID for 2 weeks If not improving within next 2 days will get CXR 08/16/2016 Appointment: María Elena Appiah WPtel: [address] [place] [address] ACUTE ILLNESS 08/16/2016 Patient Education: Patient Medication Summary Completed 08/16/2016 Visit Plan: Supportive care. Rest, Fluid s, Tylenol/Motrin prn fever or bodyaches. Notify if worsening symptoms. Doxycyline and Prednisone 08/10/2016 Appointment: María Elena Appiah WPtel: [address] [place] [address] 08/09 lm`sl....confirmed-sp FOLLOW UP 09/2015 Patient Education: Patient Medication Summary Completed 08/10/2016 Visit Plan: Saline nasal flushes prn. Ty lenol/Motrin prn headache. Notify if persists/symptoms worsening. Dexamethasone 8mg IM today May use coricedan and mucinex 08/02/2016 Appointment: María Elena Appiah WPtel: [address] [place] [address] ACUTE ILLNESS 08/02/2016 Patient Education: Patient Medication Summary Completed 08/02/2016 Visit Plan: Cryotherapy as above and lef t forearm lesion removal as above with 5-0 punch biopsy and sent to path Return in 10 days for suture removal 08/01/2016 Appointment: María Elena Appiah WPtel: [address] [place], [place] [phone] 07/31 confirmed`~sl OFFICE SURGERY 08/01/2016 Patient Education: Patient Medication Summary Completed 08/01/2016 Visit Plan: Stop clindamycin Check CBC, CMP, ESR now/STAT 07/27/2016 Appointment: María Elena Appiah WPtel: [address] [place] [address] ACUTE ILLNESS 07/27/2016 Patient Education: Patient Medication Summary Completed 07/27/2016 Visit Plan: Update lab and check ABIs to start with Will likely need cardiology evaluation to rule out PVD Clindamycin for 10 days Daily yogurt or probiotic Will return for removal of left arm lesions 07/20/2016 Appointment: María Elena Appiah WPtel: [address] [place] [address] ACUTE ILLNESS 07/20/2016 Patient Education: Patient Medication Summary Completed 07/20/2016 Patient Education: Patient Medication Summary Completed 07/20/2016 Care Plan: MAMMOGRAM BOTH BREASTS LOINC : 81617-9 Pending 07/20/2016 Care Plan: US EXAM CHEST LOINC : 88684-6 Pending 07/20/2016 Visit Plan: Wound culture collected from left great toe Appearance is somewhat staph like Rx as above Wound cleanser and skin care reviewed May need to add oral antibiotic if sores do not heal or continue to reoccur 07/06/2016 Appointment: Loan Sánchez [address] [place] [address] ACUTE ILLNESS 07/06/2016 Patient Education: Patient Medication Summary Completed 07/06/2016 Appointment: María Elena Appiah WPtel: [address] [place] [address] [place] INJECTION 05/25/2016 Patient Education: Patient Medication Summary Completed 05/25/2016 Visit Plan: Saline nasal flushes prn. Ty lenol/Motrin prn headache. Notify if persists/symptoms worsening. Dexamethasone and Rocephin given 04/26/2016 Appointment: María Elena Appiah WPtel: [address] [place] [address] ACUTE ILLNESS 04/26/2016 Patient Education: Patient Medication Summary Completed 04/26/2016 Visit Plan: Check CBC, CMP, TSH, FreeT4, HbA1C, estradiol, lipids in AM 03/02/2016 Appointment: María Elena Appiah WPtel: [address] [place] [address] 03/01 lm~sl ACUTE ILLNESS 03/02/2016 Patient Education: Patient Medication Summary Completed 03/02/2016 Visit Plan: Exam is nearly normal Needs to be taking daily antihistamine Would prefer to use oral steroids instead of shot but patient insist that oral steroids cause horrible headaches for her Will given kenalog IM instead 02/09/2016 Appointment: Loan Sánchez [address] [place] [address] ACUTE ILLNESS 02/09/2016 Patient Education: Patient Medication Summary Completed 02/09/2016 Visit Plan: Culture urine Macrobid DC xa nax Trial of Ativan 1mg q HS 01/24/2016 Appointment: María Elena Appiah WPtel: [address] [place] [address] ACUTE ILLNESS 01/24/2016 Patient Education: Patient Medication Summary Completed 01/24/2016 Visit Plan: No steroid or rocephin injec tion warranted Can have oral prednisone Continue current home regimen Needs to follow up with Dr Sanchez if problems persist 12/23/2015 Appointment: Loan Sánchez [address] [place] [address] ACUTE ILLNESS 12/23/2015 Patient Education: Patient Medication Summary Completed 12/23/2015 Visit Plan: Saline nasal flushes prn. Ty lenol/Motrin prn headache. Notify if persists/symptoms worsening. Kenalog 40mg IM today 12/08/2015 Appointment: María Elena Appiah WPtel: [address] [place] [address] 12/06 confirmed~sl ACUTE ILLNESS 12/08/2015 Patient Education: Patient Medication Summary Completed 12/08/2015 Appointment: María Elena Appiah WPtel: [address] [place] [address] ACUTE ILLNESS 11/18/2015 Patient Education: Patient Medication Summary Completed 10/11/2015 Appointment: María Elena Appiah WPtel: [address] [place] [address] [place] INJECTION 10/07/2015 Patient Education: Patient Medication Summary Completed 10/07/2015 Visit Plan: Check renal arterial doppler s and ECHO Change amlodopine to lotrel 5/20mg q HS Will need stress test as well Check CMP, uric acid, ESR 10/06/2015 Appointment: María Elena Appiah WPtel: [address] [place] [address] ACUTE ILLNESS 10/06/2015 Patient Education: Patient Medication Summary Completed 10/06/2015 Patient Education: [facility] - Saving AutoInj - Amlodipine Besylate - 18-64 - Dynamic Portal ID Completed 10/06/2015 Appointment: María Elena Appiah WPtel: [address] [place] [address] FOLLOW UP 09/22/2015 Visit Plan: Cephalexin 500 mg PO bid Mery ly topical Mupirocin to lesions on left lateral neck and face Follow-up in one week. Sooner if symptoms worsen 09/14/2015 Appointment: June Flores WPtel: [address] [place] [address] ACUTE ILLNESS 09/14/2015 Patient Education: Patient Medication Summary Completed 09/14/2015 Visit Plan: Change bystolic to bedtime d osing and amlodopine to morning dosing Cryotherapy as above to AKs 09/07/2015 Appointment: María Elena Appiah WPtel: [address] [place] [address] 09/06 appointment made and confirmed ~sl FOLLOW UP 09/07/2015 Patient Education: Patient Medication Summary Completed 09/07/2015 Visit Plan: Increase bystolic back to 20 mg daily but will split and take 10mg in AM and 10mg in PM Stress Reducers 08/18/2015 Appointment: María Elena Appiah WPtel: [address] [place], [place] [id number] 08/17/15 appt confirmed cn ACUTE ILLNESS 08/18 Patient Education: Patient Medication Summary Completed 08/18/2015 Appointment: María Elena Appiah WPtel: [address] [place] [address] BP CHECK 07/07/2015 Patient Education: Patient Medication Summary Completed 07/07/2015 Appointment: María Elena Appiah WPtel: [address] [place] [address] BP CHECK 06/24/2015 Patient Education: Patient Medication Summary Completed 06/24/2015 Appointment: María Elena Appiah WPtel: [address] [place] [address] BP CHECK 06/21/2015 Patient Education: Patient Medication Summary Completed 06/21/2015 Visit Plan: Lab discussed Continue curre nt meds and lifestyle modification Recheck lab in 6mos 06/16/2015 Appointment: María Elena Appiah WPtel: [address] [place] [address] 06/15 confirmed FOLLOW UP 06/16/2015 Patient Education: Patient Medication Summary Completed 06/16/2015 Patient Education: Patient Medication Summary Completed 06/15/2015 Visit Plan: Increase cymbalta to 60mg q HS Keep clonidine at current dose Recheck 2weeks Change xanax to klonopin 06/02/2015 Appointment: María Elena Appiah WPtel: [address] [place], [place] [phone] 06/02 lm FOLLOW UP 06/02/2015 Patient Education: Patient Medication Summary Completed 06/02/2015 Appointment: María Elena Appiah WPtel: [address] [place] [address] ACUTE ILLNESS 05/24/2015 Visit Plan: Increase clonidine to 0.2mg q HS Add cymbalta 30mg q HS Recheck 2weeks Stress Reducers Check fasting lab Discussed sleep study 05/20/2015 Appointment: María Elena Appiah WPtel: [address] [place] [address] ACUTE ILLNESS 05/20/2015 Patient Education: Patient Medication Summary Completed 05/20/2015 Patient Education: [facility] - Saving AutoInj - Cymbalta - 18-64 - Dynamic Portal ID Completed 05/20/2015 Appointment: María Elena Appiah WPtel: [address] [place] [address] BP CHECK 05/19/2015 Patient Education: Patient Medication Summary Completed 05/19/2015 Visit Plan: Topical Bactroban alternatin g with topical betamethasone Recheck 2weeks 05/10/2015 Appointment: María Elena Appiah WPtel: [address] [place], [place] [phone] 05/07 cn...05/07 appt confirmed OFFICE SURGER Y 05/10/2015 Patient Education: Patient Medication Summary Completed 05/10/2015 Referral: [facility] [address] Referral Initiated 05/04/2015 Visit Plan: Saline nasal flushes prn. Ty lenol/Motrin prn headache. Notify if persists/symptoms worsening. Depomedrol 40mg IM today 03/16/2015 Appointment: María Elena Appiah WPtel: [address] [place] [address] ACUTE ILLNESS 03/16/2015 Patient Education: Patient Medication Summary Completed 03/16/2015 Appointment: María Elena Appiah WPtel: [address] [place] [address] ER Follow UP 03/09/2015 Visit Plan: Cryotherapy to lesions as ab ove 10/27/2014 Appointment: María Elena Appiah WPtel: [address] [place] [address] OFFICE SURGERY 10/27/2014 Patient Education: Patient Medication Summary Completed 10/27/2014 Appointment: June Flores WPtel: [address] [place] [address] ACUTE ILLNESS 09/11/2014 Patient Education: Patient Medication Summary Completed 09/11/2014 Visit Plan: Lab discussed Lipitor 10mg d aily Coenzyme Q-10 400mg daily Vitamin D3 5000u daily Recheck lipids with LFTs in 3mos then fwup 08/31/2014 Appointment: María Elena Appiah WPtel: [address] [place] [address] 08/28 voicemail FOLLOW UP 08/31/2014 Patient Education: Patient Medication Summary Completed 08/31/2014 Appointment: María Elena Appiah WPtel: [address] [place] [address] US LAB 08/27/2014 Appointment: María Elena Appiah WPtel: [address] [place], [place] [phone] US LAB 08/27/2014 Patient Education: Patient Medication Summary Completed 08/27/2014 Appointment: María Elena Appiah WPtel: [address] [place] [address] ACUTE ILLNESS 07/23/2014 Appointment: María Elena Appiah WPtel: [address] [place] [address] ACUTE ILLNESS 07/21/2014 Patient Education: Patient Medication Summary Completed 07/21/2014 Visit Plan: Kenalog 40mg IM today Contin ue narendra and singulair Add Flonase 07/15/2014 Appointment: María Elena Appiah WPtel: [address] [place], [place] [phone] ACUTE ILLNESS 07/15/2014 Appointment: María Elena Appiah WPtel: [address] [place], [place] [phone] ACUTE ILLNESS 07/15/2014 Patient Education: Patient Medication Summary Completed 07/15/2014 Visit Plan: Will do metolazone 2.5mg prn with 6 potassium and see if causes as severe cramping Trial of of seroquel XR 50mg q PM with evening meal and let us know how works 05/18/2014 Appointment: María Elena Appiah WPtel: [address] [place], [place] [phone] 05/15 left message FOLLOW UP 05/18/2014 Patient Education: Patient Medication Summary Completed 05/18/2014 Appointment: María Elena Appiah WPtel: [address] [place], [place] [phone] US LAB 05/14/2014 Patient Education: Patient Medication Summary Completed 05/14/2014 Appointment: María Elena Appiah WPtel: [address] [place], [place] [phone] [place] INJECTION 04/22/2014 Visit Plan: Tisha and Miranda today a nd finish abx given from urgent care 04/21/2014 Appointment: María Elena Appiah WPtel: [address] [place], [place] [phone] [place] INJECTION 04/21/2014 Patient Education: Patient Medication Summary Completed 04/21/2014 Appointment: June Flores WPtel: [address] [place], [place] [phone] ACUTE ILLNESS 03/04/2014 Patient Education: Patient Medication Summary Completed 03/04/2014 Appointment: María Elena Appiah WPtel: [address] [place], [place] [phone] [place] INJECTION 02/27/2014 Patient Education: Patient Medication Summary Completed 02/27/2014 Visit Plan: Cryotherapy as above to all lesions Patient wants to try no meds for insomnia for a while and see how goes 01/13/2014 Appointment: María Elena Appiah WPtel: [address] [place] [address] OFFICE SURGERY 01/13/2014 Patient Education: Patient Medication Summary Completed 01/13/2014 Visit Plan: Stop Melatonin Stop Soma Tri al of trazadone 75mg q HS See ENT for possible tubes as has had chronic ETD and serous otitis media with numerous steroids 12/24/2013 Appointment: María Elena Appiah WPtel: [address] [place] [address] ACUTE ILLNESS 12/24/2013 Patient Education: Patient Medication Summary Completed 12/24/2013 Visit Plan: Saline nasal flushes prn. Ty lenol/Motrin prn headache. Notify if persists/symptoms worsening. 11/12/2013 Appointment: María Elena Appiah WPtel: [address] [place] [address] ACUTE ILLNESS 11/12/2013 Patient Education: Patient Medication Summary Completed 11/12/2013 Appointment: María Elena Appiah WPtel: [address] [place] [address] ACUTE ILLNESS 10/21/2013 Patient Education: Patient Medication Summary Completed 10/21/2013 Visit Plan: Sleep hygiene and sleep rout ine Melatonin 10mg q HS Support stockings and observe 09/22/2013 Appointment: María Elena Appiah WPtel: [address] [place] [address] ACUTE ILLNESS 09/22/2013 Patient Education: Patient Medication Summary Completed 09/22/2013 Appointment: June Flores WPtel: [address] [place] [address] ACUTE ILLNESS 08/27/2013 Patient Education: Patient Medication Summary Completed 08/27/2013 Visit Plan: Proceed with CT scan of head /neck Proceed with occipital nerve injections Butrans 20mcg patch weekly until can get into see Dr. Mcdonough for injections 08/04/2013 Appointment: María Elena Appiahtel: [address] [place] [address] FOLLOW UP 08/04/2013 Patient Education: Patient Medication Summary Completed 08/04/2013 Visit Plan: OMT done Daily neck stretche s, moist heat Increase Celebrex to 200mg BID Add flexeril 07/23/2013 Appointment: María Elena Appiah WPtel: [address] [place] [address] 07/22 voicemail FOLLOW UP 07/23/2013 Patient Education: Patient Medication Summary Completed 07/23/2013 Appointment: María Elena Appiah WPtel: [address] [place] [address] ACUTE ILLNESS 06/23/2013 Patient Education: Patient Medication Summary Completed 06/23/2013 Appointment: María Elena Appiah WPtel: [address] [place] [address] ACUTE ILLNESS 05/26/2013 Patient Education: Patient Medication Summary Completed 05/26/2013 Visit Plan: Decrease clonidine to 0.1mg TID If BP remains stable consider decreasing amlodopine Prednisone for 5 days BP check in 1mo 04/16/2013 Appointment: María Elena Appiahtel: [address] [place] [address] 04/14 pt called and confirmed appt FOLLOW UP 04/16/2013 Patient Education: Patient Medication Summary Completed 04/16/2013 Appointment: María Elena Appiahtel: [address] [place] [address] ACUTE ILLNESS 03/05/2013 Patient Education: Patient Medication Summary Completed 03/05/2013 Visit Plan: Pt has MARIA ELENA on with Dr. Mcdonough Continue Butrans patch Refill Hydrocodone early tomorrow 12/23/2012 Appointment: María Elena Appiahtel: [address] [place] [address] FOLLOW UP 12/23/2012 Patient Education: Patient Medication Summary Completed 12/23/2012 Appointment: Lashawn Eckert WPtel: [address] [place] [address] ACUTE ILLNESS 12/16/2012 Patient Education: Patient Medication Summary Completed 12/16/2012 Visit Plan: Proceed with updated MRI of LS spine Continue gabapentin and add soma and diclofenac Will likely need to go for another epidural 12/09/2012 Appointment: María Elena Appiah WPtel: [address] [place] [address] ACUTE ILLNESS 12/09/2012 Patient Education: Patient Medication Summary Completed 12/09/2012 Visit Plan: Injection as above Finish me drol dose pack Chiropracter this afternoon 12/04/2012 Appointment: María Elena Appiah WPtel: [address] [place] [address] ACUTE ILLNESS 12/04/2012 Patient Education: Patient Medication Summary Completed 12/04/2012 Appointment: Mary Tillman WPtel: [address] [place] [address] FOLLOW UP 11/22/2012 Patient Education: Patient Medication Summary Completed 11/22/2012 Appointment: María Elena Appiah WPtel: [address] [place] [address] ACUTE ILLNESS 11/21/2012 Patient Education: Patient Medication Summary Completed 11/21/2012 Appointment: María Elena Appiah WPtel: [address] [place] [address] BP CHECK 11/07/2012 Patient Education: Patient Medication [...] BP re-check. 10/29/2012 Appointment: Lashawn Eckert WPtel: [address] [place] [address] ACUTE ILLNESS 10/29/2012 Patient Education: Patient Medication Summary Completed 10/29/2012 Appointment: María Elena Appiah WPtel: [address] [place] [address] ACUTE ILLNESS 10/14/2012 Patient Education: Patient Medication Summary Completed 10/14/2012 Appointment: María Elena Appiah WPtel: [address] [place] [address] 09/27/2012 Patient Education: Patient Medication Summary Completed 09/27/2012 Appointment: María Elena Appiah WPtel: [address] [place] [address] ACUTE ILLNESS 09/25/2012 Patient Education: Patient Medication Summary Completed 09/25/2012 Appointment: María Elena Appiah WPtel: [address] [place] [address] BP CHECK 09/24/2012 Appointment: María Elena Appiah WPtel: [address] [place] [address] ACUTE ILLNESS 08/29/2012 Patient Education: Patient Medication Summary Completed 08/29/2012 Visit Plan: Cryotherapy as above See Karlos m for right ear lesion--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 ACUTE ILLNESS 05/06/2012 Patient Education: Patient Medication Summary Completed 05/06/2012 Visit Plan: Pt wants to hold on any furt her sleep medications 04/03/2012 Appointment: María Elena Appiah WPtel: [address] [place] [address] FOLLOW UP 04/03/2012 Patient Education: Patient Medication Summary Completed 04/03/2012 Appointment: María Elena Appiah WPtel: [address] [place] [address] FOLLOW UP 03/19/2012 Patient Education: Patient Medication Summary Completed 03/19/2012 Appointment: María Elena Appiah WPtel: [address] [place] [address] BP CHECK 02/22/2012 Patient Education: Patient Medication Summary Completed 02/22/2012 Appointment: María Elena Appiah WPtel: [address] [place] [address] BP CHECK 02/21/2012 Patient Education: Patient Medication Summary Completed 02/21/2012 Visit Plan: Doxycycline and bactroban fo r foot Supportive care on ankles and knees Add norvasc for BP 02/20/2012 Appointment: María Elena Appiah WPtel: [address] [place] [address] ER Follow UP 02/20/2012 Patient Education: Patient Medication Summary Completed 02/20/2012 Appointment: María Elena Appiah WPtel: [address] [place] [address] ACUTE ILLNESS 01/30/2012 Patient Education: Patient Medication Summary Completed 01/30/2012 Appointment: María Elena Appiah WPtel: [address] [place] [address] ACUTE ILLNESS 01/24/2012 Patient Education: Patient Medication Summary Completed 01/24/2012 Visit Plan: Daily back stretches, moist heat, Biofreeze prn OMT done 01/10/2012 Appointment: María Elena Appiahtel: [address] [place] [address] ACUTE ILLNESS 01/10/2012 Patient Education: Patient Medication Summary Completed 01/10/2012 Appointment: María Elena Appiahtel: [address] [place] [address] FOLLOW UP 12/11/2011 Patient Education: Patient Medication Summary Completed 12/11/2011 Appointment: María Elena Appiahtel: [address] [place] [address] ACUTE ILLNESS 11/09/2011 Patient Education: Patient Medication Summary Completed 11/09/2011 Appointment: María Elena Appiahtel: [address] [place] [address] ACUTE ILLNESS 09/13/2011 Patient Education: Patient Medication Summary Completed 09/13/2011 Visit Plan: Check CBC, TSH, Free T4, CMP , ESR, Vit D, B12 now Start Prednisone today 08/31/2011 Appointment: María Elena Appiahtel: [address] [place] [address] ACUTE ILLNESS 08/31/2011 Patient Education: Patient Medication Summary Completed 08/31/2011 Appointment: María Elena Appiahtel: [address] [place] [address] [place] INJECTION 07/20/2011 Patient Education: Patient Medication Summary Completed 07/20/2011 Visit Plan: Continue current meds Monite r BP Cont stretches from PT 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 07/06/2011 Appointment: María Elena Appiahtel: [address] [place] [address] FOLLOW UP 07/06/2011 Patient Education: Patient Medication Summary Completed 07/06/2011 Appointment: María Elena Appiahtel: [address] [place], [place] [phone] BP CHECK 06/06/2011 Patient Education: Patient Medication Summary Completed 06/06/2011 Visit Plan: Add Bystolic at 2.5mg QAM Ad d Robaxin 750mg 2 po q HS BP check in 2wks 05/22/2011 Appointment: María Elena Appiah WPtel: [address] [place], [place] [phone] FOLLOW UP 05/22/2011 Patient Education: Patient Medication Summary Completed 05/22/2011 Appointment: María Elena Appiah WPtel: [address] [place], [place] [phone] ER Follow UP 05/09/2011 Patient Education: Patient Medication Summary Completed 05/09/2011 Appointment: María Elena Appiah WPtel: [address] [place] [address] FOLLOW UP 02/22/2011 Visit Plan: Rx written for Hydrocodone 1 0/325mg #240 See Ortho 02/14/2011 Appointment: María Elena Appiah WPtel: [address] [place], [place] [phone] OMT 02/14/2011 Patient Education: Patient [...] lab work. 02/03/2011 Appointment: Lashawn Eckert WPtel: [address] [place], [place] [phone] ACUTE ILLNESS 02/03/2011 Patient Education: Patient Medication Summary Completed 02/03/2011 Visit Plan: OMT done Cont daily stretche s 01/31/2011 Appointment: María Elena Appiahtel: [address] [place] [address] ACUTE ILLNESS 01/31/2011 Patient Education: Patient Medication Summary Completed 01/31/2011 Visit Plan: Continue pain meds OMT done Proceed with PT No work this summer01/25/2011 Appointment: María Elena Appiah WPtel: [address] [place] [address] ACUTE ILLNESS 01/25/2011 Patient Education: Patient Medication Summary Completed 01/25/2011 Visit Plan: Start PT Long discussion abo ut getting pain meds from only and can only have max of 4grams of tylenol per day Change to Hydrocodone 10/325mg 1- 2 po TID prn pain--#180 called to [place] 01/18/2011 Appointment: María Elena Appiah WPtel: [address] [place] [address] FOLLOW UP 01/18/2011 Patient Education: Patient Medication Summary Completed 01/18/2011 Visit Plan: Daily back stretches, moist heat, Biofreeze prn 11/29/2010 Appointment: María Elena Appiahtel: [address] [place] [address] ER Follow UP 11/29/2010 Patient Education: Patient Medication Summary Completed 11/29/2010 Visit Plan: Saline nasal flushes prn. Ty lenol/Motrin prn headache. Notify if persists/symptoms worsening. Finish augmentin Add Medrol Dose Pack 10/10/2010 Appointment: María Elena Appiahtel: [address] [place] [address] ACUTE ILLNESS 10/10/2010 Patient Education: Patient Medication Summary Completed 10/10/2010 Visit Plan: Cryotherapy x3 to multiple l esions on both forearms 07/19/2010 Appointment: María Elena Appiahtel: [address] [place], [place] [phone] [place] OFFICE SURGERY 07/19/2010 Patient Education: Patient Medication Summary Completed 07/19/2010 Appointment: María Elena Appiah WPtel: [address] [place], [place] [phone] [place] BP CHECK 07/06/2010 Patient Education: Patient Medication Summary Completed 07/06/2010 Appointment: María Elena Appiah WPtel: [address] [place], [place] [phone] [place] BP CHECK 06/30/2010 Patient Education: Patient Medication Summary Completed 06/30/2010 Appointment: María Elena Appiah WPtel: [address] [place], [place] [phone] [place] BP CHECK 06/20/2010 Patient Education: Patient Medication Summary Completed 06/20/2010 Visit Plan: Change Diovan to Exforge 160 /5mg QD OMT done to thoracics BP check in 2wks 06/07/2010 Appointment: María Elena Appiah WPtel: [address] [place] [address] FOLLOW UP 06/07/2010 Patient Education: Patient Medication Summary Completed 06/07/2010 Appointment: María Elena Appiah WPtel: [address] [place] [phone] [place] BP CHECK 06/03/2010 Patient Education: Patient Medication Summary Completed 06/03/2010 Appointment: María Elena Appiah WPtel: [address] [place] [phone] [place] BP CHECK 06/01/2010 Patient Education: Patient Medication Summary Completed 06/01/2010 Visit Plan: Irritated skin tags to left neck x2 excised at base with scissors and base cauterized 05/30/2010 Appointment: María Elena Appiah WPtel: [address] [place], [place] [phone] OFFICE SURGERY 05/30/2010 Patient Education: Patient Medication Summary Completed 05/30/2010 Visit Plan: Saline nasal flushes prn. Ty lenol/Motrin prn headache. Notify if persists/symptoms worsening. Restart Nasonex Has allergy testing set for May 25 04/27/2010 Appointment: María Elena Appiahtel: [address] [place] [address] ACUTE ILLNESS 04/27/2010 Patient Education: Patient Medication Summary Completed 04/27/2010 Visit Plan: Saline nasal flushes prn. Ty lenol/Motrin prn headache. Notify if persists/symptoms worsening. Omnaris BID plus injections 04/05/2010 Appointment: María Elena Appiahtel: [address] [place] [address] ACUTE ILLNESS 04/05/2010 Patient Education: Patient Medication Summary Completed 04/05/2010 Visit Plan: Saline nasal flushes prn. Ty lenol/Motrin prn headache. Notify if persists/symptoms worsening. 03/09/2010 Appointment: María Elena Appiah WPtel: [address] [place] [address] ACUTE ILLNESS 03/09/2010 Patient Education: Patient Medication Summary Completed 03/09/2010 Visit Plan: Cont Clonidine as is Cont Pr emarin Fwup with surgery as scheduled 03/03/2010 Appointment: María Elena Appiahtel: [address] [place] [address] FOLLOW UP 03/03/2010 Patient Education: Patient Medication Summary Completed 03/03/2010 Visit Plan: Check Pelvic US now Dukee tacho Dand C vs Hysterectomy 01/17/2010 Appointment: María Elena Appiahtel: [address] [place] [address] ACUTE ILLNESS 01/17/2010 Patient Education: Patient Medication Summary Completed 01/17/2010 Visit Plan: Check fasting lab and schedu le Mammogram 2gm Na Diet Trial of Ambien 10mg qhs Fwup pending lab results 12/27/2009 Appointment: María Elena Appiahtel: [phone] [id number] [place] ESTABLISHED PATIENT 12/27/2009 Patient Education: Patient Medication Summary Completed 12/27/2009 Referral: Canelo Overton WPtel: [address] [id number] [place] Referral Initiated Referral: Mark Philipp WPtel: [address] [id number] [place] Referral Appointment Requested Instructions Comment . [...] Pt has MARIA ELENA on with Dr. Mcodnough Continue Butrans patch Refill Hydrocodone early tomorrow [...]
--- OUTSIDE RECORDS SUMMARY | 2020-03-13 06:40 | XMS REPORT | CCD ---
Author Author Gale Appiah D.O. Organization [facility] Address [address] [place] [id number] Phone Care Team Providers Care Environmental Monitoring Technician Name Role Phone María Elena Appiah D.O., PP Unavailable CCM Unavailable Summary Purpose Interface Exchange Insurance Providers Payer name Policy type / Coverage type Covered alliance party ID Effective Begin Date Effective End Date [facility] Commercial Insurance [id number] Unknown Family History Family History data not found Social History Social History Element Codes Description Effective Dates Tobacco history SNOMED CT: [id number] Never smoker 05/22/2011 Allergies, Adverse Reactions, Alerts [...] Fill Instructions gabapentin 300 mg capsule RxNorm: 091780 TAKE ONE CAPSU LE BY MOUTH EVERY NIGHT AT BEDTIME 09/19/2019 No Stop Date Active baclofen 10 mg tablet RxNorm: 646469 TAKE ONE TABLET BY MOUTH THREE TIMES A DAY NEEDED 09/19/2019 No Stop Date Active Klor-Con 8 mEq tablet,extended release RxNorm: 346600 T FARRUKH ONE TABLET BY MOUTH TWICE A DAY 1 Tablet(s) Oral two times a day 09/19/2019 10/19/2019 Act darion hydrocodone 10 mg-acetaminophen 325 mg tablet RxNorm: 402011 1-2 Tablet(s) Oral three times a day as needed for pain 09/19/2019 No Stop Date Active duloxetine 60 mg capsule,delayed release RxNorm: 235670 TAKE ONE CAPSULE BY MOUTH DAILY 09/11/2019 No Stop Date Active Lipitor 10 mg tablet RxNorm: 950066 TAKE ONE TABLET BY MOUTH AT BEDTIME 09/11/2019 No Stop Date Active lisinopril 20 mg tablet RxNorm: 609903 TAKE ONE TABLET BY MOUTH DAILY .... THIS REPLACE 10MG TABLETS 09/11/2019 No Stop Date Active triamterene 75 mg-hydrochlorothiazide 50 mg tablet RxNorm: 3 78520 TAKE ONE TABLET BY MOUTH DAILY 09/11/2019 No Stop Date Active allopurinol 300 mg tablet RxNorm: 324579 TAKE ONE TABLET BY LOPEZ TH DAILY 09/11/2019 No Stop Date Active celecoxib 200 mg capsule RxNorm: 153838 TAKE ONE CAPSUL E BY MOUTH TWICE A DAY NEEDED FOR PAIN 09/11/2019 No Stop Date Active clonidine HCl 0.1 mg tablet RxNorm: 608251 TAKE ONE TAB LET BY MOUTH FOUR TIMES A DAY 09/11/2019 No Stop Date Active doxepin 25 mg capsule RxNorm: 1807577 1 Capsule(s) Oral every night at bedtime as needed for sleep 08/21/2019 11/18/2019 Active hydrocodone 10 mg-acetaminophen 325 mg tablet RxNorm: 626309 1-2 Tablet(s) PO TID 08/12/2019 No Stop Date Active as needed for pa in - Previous quantity #240, will start dosing for #180 in April 2011 per Doctor Td. Medrol (Dustin) 4 mg tablets in a dose pack RxNorm: 235786 Tablet(s) Oral As Directed 07/21/2019 No Stop Date Active Premarin 1.25 mg tablet RxNorm: 921143 1 Tablet(s) Oral QD 07/02/20 19 03/28/2020 Active hydrocodone 10 mg-acetaminophen 325 mg tablet RxNorm: 201379 1-2 Tablet(s) PO TID 07/01/2019 08/11/2019 Inactive as needed for pa in - Previous quantity #240, will start dosing for #180 in April 2011 per Doctor Td. gabapentin 300 mg capsule RxNorm: 662963 1 Capsule(s) PO QHS 201809/18/2019 Inactive celecoxib 200 mg capsule RxNorm: 955065 1 Capsule(s) Or al two times a day as needed for pain 06/27/2019 06/27/2019 Inactive Singulair 10 mg tablet RxNorm: 536088 TAKE ONE TABLET BY MOUTH JOSÉ Y 06/24/2019 No Stop Date Active furosemide 40 mg tablet RxNorm: 992055 TAKE ONE TABLET BY MOUTH EVERY MORNING NEEDED FOR EDEMA . TAKE WITH POTASSIUM 06/24/2019 No Stop Date Active doxepin 25 mg capsule RxNorm: 7204414 TAKE ONE CAPSULE B Y MOUTH EVERY NIGHT AT BEDTIME NEEDED FOR SLEEP 06/24/2019 08/20/2019 Inactive lisinopril 20 mg tablet RxNorm: 887879 TAKE ONE TABLET BY MOUTH DAILY .... THIS REPLACE 10MG TABLETS 06/24/2019 09/10/2019 Inactive nystatin-triamcinolone 100,000 unit/g-0.1 % topical cream Rx Norm: 3352765 1 Application Topical two times a day 06/12/2019 06/19/2019 Inactive apply BID for 1 week nystatin-triamcinolone 100,000 unit/g-0.1 % topical cream Rx Norm: 3125317 1 Application Topical two times a day 06/12/2019 06/11/2019 Inactive apply BID for 1 week hydrocodone 10 mg-acetaminophen 325 mg tablet RxNorm: 906702 1-2 Tablet(s) PO QID as needed for pain MUST LAST 30 DAYS 05/28/2019 06/26/2019 Inactiv e (Response to an electronic controlled substance refill request - [facility] [id number]) baclofen 20 mg tablet RxNorm: 542712 1 Tablet(s) PO TID as needed for muscle spasm 05/19/2019 05/27/2019 Inactive gabapentin 300 mg capsule RxNorm: 508973 1 Capsule(s) PO QHS 201805/27/2019 Inactive lisinopril 20 mg tablet RxNorm: 408283 1 Tablet(s) PO Q D TAKE ONE TABLET BY MOUTH DAILY, REPLACES 10 MG DOSE 05/19/2019 06/23/2019 Inactive doxepin 25 mg capsule RxNorm: 7893031 TAKE ONE CAPSULE B Y MOUTH EVERY NIGHT AT BEDTIME NEEDED FOR SLEEP 05/16/2019 06/14/2019 Inactive lisinopril 20 mg tablet RxNorm: 779837 TAKE ONE TABLET BY MOUTH DAILY, REPLACES 10 MG DOSE 05/16/2019 05/18/2019 Inactive Singulair 10 mg tablet RxNorm: 359142 TAKE ONE TABLET BY MOUTH JOSÉ Y 05/16/2019 06/14/2019 Inactive gabapentin 300 mg capsule RxNorm: 282966 1 Capsule(s) PO QHS 201805/04/2019 Inactive estropipate 1.5 mg tablet RxNorm: 831490 1 Tablet(s) PO QD 05/05/2005/27/2019 Inactive estropipate 1.5 mg tablet RxNorm: 595259 1 Tablet(s) PO QD 05/05/2005/04/2019 Inactive gabapentin 300 mg capsule RxNorm: 611845 1 Capsule(s) PO QHS 201805/18/2019 Inactive hydrocodone 10 mg-acetaminophen 325 mg tablet RxNorm: 713644 1-2 Tablet(s) PO QID as needed for pain MUST LAST 30 DAYS 04/25/2019 05/24/2019 Inactiv e (Response to an electronic controlled substance refill request - RxReferenceNumber: [id number]) metoprolol tartrate 100 mg tablet RxNorm: 686323 TAKE O NE TABLET BY MOUTH TWICE A DAY 04/24/2019 06/22/2019 Inactive cyclobenzaprine 10 mg tablet RxNorm: 870272 TAKE ONE TA BLET BY MOUTH THREE TIMES A DAY NEEDED FOR MUSCLE SPASMS 04/24/2019 05/18/2019 Inactive Lyrica 75 mg capsule RxNorm: 411954 1 Capsule(s) PO QHS 03/25/2019 Inactive duloxetine 60 mg capsule,delayed release RxNorm: 719203 TAKE ONE CAPSULE BY MOUTH DAILY 03/21/2019 05/19/2019 Inactive triamterene 75 mg-hydrochlorothiazide 50 mg tablet RxNorm: 3 05715 TAKE ONE TABLET BY MOUTH DAILY 03/21/2019 05/19/2019 Inactive Klor-Con 8 mEq tablet,extended release RxNorm: 375448 T FARRUKH ONE TABLET BY MOUTH TWICE A DAY 03/21/2019 09/18/2019 Inactive Lipitor 10 mg tablet RxNorm: 244441 TAKE ONE TABLET BY MOUTH AT BEDTIME 03/21/2019 09/10/2019 Inactive clonidine HCl 0.1 mg tablet RxNorm: 207778 TAKE ONE TAB LET BY MOUTH FOUR TIMES A DAY 03/21/2019 05/19/2019 Inactive allopurinol 300 mg tablet RxNorm: 309294 TAKE ONE TABLET BY LOPEZ TH DAILY 03/21/2019 05/19/2019 Inactive hydrocodone 10 mg-acetaminophen 325 mg tablet RxNorm: 891566 1-2 Tablet(s) PO QID as needed for pain MUST LAST 30 DAYS 02/28/2019 03/29/2019 Inactiv e (Response to an electronic controlled substance refill request - RxReferenceNumber: [id number]) furosemide 40 mg tablet RxNorm: 930910 TAKE ONE TABLET BY MOUTH EVERY MORNING NEEDED FOR EDEMA . TAKE WITH POTASSIUM 02/21/2019 03/22/2019 Inactive cyclobenzaprine 10 mg tablet RxNorm: 553437 TAKE ONE TA BLET BY MOUTH THREE TIMES A DAY NEEDED FOR MUSCLE SPASMS 02/21/2019 04/21/2019 Inactive lisinopril 20 mg tablet RxNorm: 710265 TAKE ONE TABLET BY MOUTH DAILY, REPLACES 10 MG DOSE 02/21/2019 05/15/2019 Inactive doxepin 25 mg capsule RxNorm: 1160869 TAKE ONE CAPSULE B Y MOUTH EVERY NIGHT AT BEDTIME NEEDED FOR SLEEP 02/21/2019 05/15/2019 Inactive nystatin 100,000 unit/gram topical cream RxNorm: 928105 APPLY TO AFFECTED AREA(S) TWO TIMES A DAY 02/21/2019 03/22/2019 Inactive estradiol 1 mg tablet RxNorm: 099518 2 Tablet(s) PO QD replaces premarin 01/22/2019 05/04/2019 Inactive lisinopril 20 mg tablet RxNorm: 803053 TAKE ONE TABLET BY MOUTH DAILY, REPLACES 10 MG DOSE 01/20/2019 02/18/2019 Inactive cyclobenzaprine 10 mg tablet RxNorm: 784096 TAKE ONE TA BLET BY MOUTH THREE TIMES A DAY NEEDED FOR MUSCLE SPASMS 01/20/2019 02/18/2019 Inactive metoprolol tartrate 100 mg tablet RxNorm: 903755 TAKE O NE TABLET BY MOUTH TWICE A DAY 01/20/2019 02/18/2019 Inactive cyclobenzaprine 10 mg tablet RxNorm: 301184 TAKE ONE TA BLET BY MOUTH THREE TIMES A DAY NEEDED FOR MUSCLE SPASMS 12/19/2018 01/17/2019 Inactive lisinopril 20 mg tablet RxNorm: 583353 TAKE ONE TABLET BY MOUTH DAILY, REPLACES 10 MG DOSE 12/19/2018 01/17/2019 Inactive duloxetine 60 mg capsule,delayed release RxNorm: 361966 TAKE ONE CAPSULE BY MOUTH DAILY 12/19/2018 01/17/2019 Inactive Lipitor 10 mg tablet RxNorm: 765442 TAKE ONE TABLET BY MOUTH AT BEDTIME 12/19/2018 01/17/2019 Inactive cyclobenzaprine 10 mg tablet RxNorm: 596395 1 Tablet(s) PO TID as needed for muscle spasm 11/19/2018 12/18/2018 Inactive Singulair 10 mg tablet RxNorm: 447972 1 Tablet(s) PO QD 11/19/2018 Inactive lisinopril 20 mg tablet RxNorm: 371853 TAKE ONE TABLET BY MOUTH DAILY, REPLACES 10 MG DOSE 11/15/2018 12/18/2018 Inactive hydrocodone 10 mg-acetaminophen 325 mg tablet RxNorm: 611128 1-2 Tablet(s) PO QID as needed for pain MUST LAST 30 DAYS 11/13/2018 12/12/2018 Inactiv e (Response to an electronic controlled substance refill request - RxReferenceNumber: [id number]) nystatin 100,000 unit/gram topical cream RxNorm: 313427 APPLY TO AFFECTED AREA(S) TWO TIMES A DAY 10/23/2018 11/06/2018 Inactive lisinopril 20 mg tablet RxNorm: 709020 1 Tablet(s) PO QD replac es 10mg dose 10/18/2018 11/14/2018 Inactive hydrocodone 10 mg-acetaminophen 325 mg tablet RxNorm: 511567 1-2 Tablet(s) QID as needed for pain MUST LAST 30 DAYS 10/08/2018 11/06/2018 Inactive (Response to an electronic controlled substance refill request - RxReferenceNumber: [id number]) lisinopril 10 mg tablet RxNorm: 892702 1 Tablet(s) PO QD 10/03/2018 0 01/21/2019 Inactive Celebrex 200 mg capsule RxNorm: 942319 TAKE ONE CAPSULE BY MOUT H TWICE A DAY 09/30/2018 05/04/2019 Inactive cyclobenzaprine 10 mg tablet RxNorm: 386640 TAKE ONE TA BLET BY MOUTH THREE TIMES A DAY NEEDED FOR MUSCLE SPASMS 09/30/2018 11/18/2018 Inactive doxepin 25 mg capsule RxNorm: 0217204 TAKE ONE CAPSULE B Y MOUTH EVERY NIGHT AT BEDTIME NEEDED 09/05/2018 10/16/2018 Inactive omeprazole 40 mg capsule,delayed release RxNorm: 918618 TAKE ONE CAPSULE BY MOUTH DAILY 09/05/2018 01/21/2019 Inactive furosemide 40 mg tablet RxNorm: 688572 TAKE ONE TABLET BY MOUTH EVERY MORNING NEEDED FOR EDEMA . TAKE WITH POTASSIUM 09/05/2018 11/03/2018 Inactive phentermine 37.5 mg tablet RxNorm: 226292 1 Tablet(s) PO QAM 201701/21/2019 Inactive doxepin 25 mg capsule RxNorm: 8302337 1 Capsule(s) PO QH S as needed for sleep TAKE ONE CAPSULE BY MOUTH EVERY NIGHT AT BEDTIME NEEDED 08/27/2018 09/04/2018 Inactive Keflex 500 mg capsule RxNorm: 838820 1 Capsule(s) PO TID 08/09/2018 1 10/19/2017 Inactive Diflucan 100 mg tablet RxNorm: 326408 1 Tablet(s) PO QD 08/09/2018 Inactive Premarin 1.25 mg tablet RxNorm: 911232 2 Tablet(s) PO QD 08/09/2018 0 05/04/2019 Inactive Zofran ODT 4 mg disintegrating tablet RxNorm: 080569 1 Tablet(s) PO Q4H as needed for nausea 08/09/2018 01/21/2019 Inactive metoprolol tartrate 100 mg tablet RxNorm: 370554 TAKE O NE TABLET BY MOUTH TWICE A DAY 2018 10/04/2018 Inactive doxepin 25 mg capsule RxNorm: 2727197 TAKE ONE CAPSULE B Y MOUTH EVERY NIGHT AT BEDTIME NEEDED 2018 08/26/2018 Inactive cyclobenzaprine 10 mg tablet RxNorm: 011096 TAKE ONE TA BLET BY MOUTH THREE TIMES A DAY NEEDED FOR MUSCLE SPASMS 2018 09/29/2018 Inactive hydrocodone 10 mg-acetaminophen 325 mg tablet RxNorm: 537631 1-2 Tablet(s) QID as needed for pain MUST LAST 30 DAYS 07/29/2018 08/27/2018 Inactive (Response to an electronic controlled substance refill request - RxReferenceNumber: [id number]) nystatin 100,000 unit/gram topical powder RxNorm: 642620 Applic ation TOP BID 07/22/2018 08/04/2018 Inactive doxepin 25 mg capsule RxNorm: 7310901 1 Capsule(s) PO QHS as needed 07/22/2018 08/05/2018 Inactive triamterene 75 mg-hydrochlorothiazide 50 mg tablet RxNorm: 3 00219 TAKE ONE TABLET BY MOUTH DAILY 07/05/2018 10/02/2018 Inactive duloxetine 60 mg capsule,delayed release RxNorm: 517854 TAKE ONE CAPSULE BY MOUTH DAILY 07/05/2018 09/02/2018 Inactive Klor-Con 8 mEq tablet,extended release RxNorm: 688215 T FARRUKH ONE TABLET BY MOUTH TWICE A DAY 07/05/2018 10/02/2018 Inactive Lipitor 10 mg tablet RxNorm: 036530 TAKE ONE TABLET BY MOUTH AT BEDTIME 07/05/2018 09/02/2018 Inactive allopurinol 300 mg tablet RxNorm: 964037 TAKE ONE TABLET BY LOPEZ TH DAILY 07/05/2018 10/02/2018 Inactive clonidine HCl 0.1 mg tablet RxNorm: 974148 TAKE ONE TAB LET BY MOUTH FOUR TIMES A DAY 07/05/2018 10/02/2018 Inactive hydrocodone 10 mg-acetaminophen 325 mg tablet RxNorm: 781195 1-2 Tablet(s) QID as needed for pain MUST LAST 30 DAYS 06/28/2018 07/27/2018 Inactive (Response to an electronic controlled substance refill request - RxReferenceNumber: [id number]) MediHoney (calcium alginate-honey) 4" X 5" bandage RxNorm: 1 Application TOP QD 06/17/2018 06/26/2018 Inactive honey-hydrocolloid dressing 4" X 5" RxNorm: 1 Application TOP QD 06/17/2018 07/16/2018 Inactive furosemide 40 mg tablet RxNorm: 267162 TAKE ONE TABLET BY MOUTH EVERY MORNING NEEDED FOR EDEMA . TAKE WITH POTASSIUM 06/10/2018 07/09/2018 Inactive This is a refill request. hydrocodone 10 mg-acetaminophen 325 mg tablet RxNorm: 619677 1-2 Tablet(s) QID as needed for pain MUST LAST 30 DAYS 05/30/2018 06/27/2018 Inactive (Response to an electronic controlled substance refill request - RxReferenceNumber: [id number]) acyclovir 800 mg tablet RxNorm: 470641 1 Tablet(s) PO 5x day 201705/22/2018 Inactive Premarin 1.25 mg tablet RxNorm: 452875 1-2 Tablet(s) PO QD 05/15/20 18 07/13/2018 Inactive cyclobenzaprine 10 mg tablet RxNorm: 789626 1 Tablet(s) PO TID as needed for muscle spasm 05/09/2018 05/08/2018 Inactive Medrol (Dustin) 4 mg tablets in a dose pack RxNorm: 410472 Tablet(s) PO As Directed 05/02/2018 06/16/2018 Inactive hydrocodone 10 mg-acetaminophen 325 mg tablet RxNorm: 308390 1-2 Tablet(s) QID as needed for pain MUST LAST 30 DAYS 04/30/2018 05/29/2018 Inactive (Response to an electronic controlled substance refill request - RxReferenceNumber: [id number]) duloxetine 60 mg capsule,delayed release RxNorm: 699919 TAKE ONE CAPSULE BY MOUTH DAILY 04/16/2018 05/15/2018 Inactive Celebrex 200 mg capsule RxNorm: 634049 TAKE ONE CAPSULE BY MOUT H TWICE A DAY 04/16/2018 06/14/2018 Inactive Singulair 10 mg tablet RxNorm: 973567 TAKE ONE TABLET BY MOUTH JOSÉ Y 04/16/2018 11/19/2018 Inactive Lipitor 10 mg tablet RxNorm: 979750 TAKE ONE TABLET BY MOUTH AT BEDTIME 04/16/2018 05/15/2018 Inactive hydrocodone 10 mg-acetaminophen 325 mg tablet RxNorm: 482760 1-2 Tablet(s) QID as needed for pain MUST LAST 30 DAYS 03/29/2018 04/27/2018 Inactive (Response to an electronic controlled substance refill request - RxReferenceNumber: [id number]) cyclobenzaprine 10 mg tablet RxNorm: 311907 1 Tablet(s) PO TID as needed for muscle spasm 03/18/2018 05/09/2018 Inactive omeprazole 40 mg capsule,delayed release RxNorm: 436232 1 Capsu le(s) PO QD 02/26/2018 08/24/2018 Inactive hydrocodone 10 mg-acetaminophen 325 mg tablet RxNorm: 591601 1-2 Tablet(s) QID as needed for pain MUST LAST 30 DAYS 02/26/2018 03/27/2018 Inactive (Response to an electronic controlled substance refill request - RxReferenceNumber: [id number]) metoprolol tartrate 100 mg tablet RxNorm: 583675 1 Tablet(s) PO BID 02/18/2018 08/05/2018 Inactive Lyrica 75 mg capsule RxNorm: 743938 1 Capsule(s) PO QHS 01/30/2018 Inactive phentermine 37.5 mg tablet RxNorm: 876488 1 Tablet(s) PO QAM 201706/16/2018 Inactive hydrocodone 10 mg-acetaminophen 325 mg tablet RxNorm: 964687 1-2 Tablet(s) QID as needed for pain MUST LAST 30 DAYS 01/29/2018 02/25/2018 Inactive (Response to an electronic controlled substance refill request - RxReferenceNumber: [id number]) Klor-Con 8 mEq tablet,extended release RxNorm: 778685 1 Tablet( s) PO BID 01/14/2018 07/04/2018 Inactive allopurinol 300 mg tablet RxNorm: 560057 1 Tablet(s) PO QD 01/15/2007/04/2018 Inactive Lipitor 10 mg tablet RxNorm: 523872 1 Tablet(s) PO QHS 01/14/201812/2017 Inactive triamterene 75 mg-hydrochlorothiazide 50 mg tablet RxNorm: 3 90723 1 Tablet(s) PO QD 01/14/2018 07/04/2018 Inactive hydrocodone 10 mg-acetaminophen 325 mg tablet RxNorm: 782204 1-2 Tablet(s) QID as needed for pain MUST LAST 30 DAYS 12/27/2017 01/25/2018 Inactive (Response to an electronic controlled substance refill request - RxReferenceNumber: [id number]) Onglyza 5 mg tablet RxNorm: 089404 1 Tablet(s) PO QD 12/18/201701/29 Inactive metformin 500 mg tablet RxNorm: 616407 1 Tablet(s) PO BID 12/11/2017 12/10/2017 Inactive metformin 500 mg tablet RxNorm: 295609 1 Tablet(s) PO BID 12/11/2017 12/17/2017 Inactive furosemide 40 mg tablet RxNorm: 237259 1 Tablet(s) PO Q AM prn edema--take with potassium 12/11/2017 06/08/2018 Inactive cyclobenzaprine 10 mg tablet RxNorm: 025513 1 Tablet(s) PO TID as needed for muscle spasm 12/11/2017 03/18/2018 Inactive hydrocodone 10 mg-acetaminophen 325 mg tablet RxNorm: 781768 1-2 Tablet(s) QID as needed for pain MUST LAST 30 DAYS 10/23/2017 11/21/2017 Inactive (Response to an electronic controlled substance refill request - RxReferenceNumber: [id number]) Lipitor 10 mg tablet RxNorm: 621608 1 Tablet(s) PO QHS 10/16/201703/2018 Inactive cyclobenzaprine 10 mg tablet RxNorm: 118472 1 Tablet(s) PO TID as needed for muscle spasm 10/09/2017 12/10/2017 Inactive hydroxyzine HCl 25 mg tablet RxNorm: 251579 1 Tablet(s) PO BID as needed for anxiety 09/20/2017 01/29/2018 Inactive Effexor XR 75 mg capsule,extended release RxNorm: 078427 1 Caps ule(s) PO QD 09/20/2017 01/29/2018 Inactive metoprolol tartrate 100 mg tablet RxNorm: 084025 1 Tablet(s) PO BID 08/20/2017 02/18/2018 Inactive baclofen 20 mg tablet RxNorm: 383025 1 Tablet(s) PO TID as needed for muscle spasm 08/20/2017 01/21/2019 Inactive clonidine HCl 0.1 mg tablet RxNorm: 704116 1 Tablet(s) PO QID 08/2005/16/2018 Inactive Seroquel 25 mg tablet RxNorm: 449500 1 Tablet(s) PO QHS 08/17/2017 Inactive Seroquel 25 mg tablet RxNorm: 842318 1 Tablet(s) PO QHS 08/17/2017 Inactive Diflucan 100 mg tablet RxNorm: 353606 TAKE ONE TABLET BY MOUTH JOSÉ Y 07/25/2017 08/07/2017 Inactive hydrocodone 10 mg-acetaminophen 325 mg tablet RxNorm: 278474 1-2 Tablet(s) QID as needed for pain MUST LAST 30 DAYS 07/19/2017 08/17/2017 Inactive (Response to an electronic controlled substance refill request - RxReferenceNumber: [id number]) clindamycin 300 mg capsule RxNorm: 303383 1 Capsule(s) PO TID 07/1907/28/2017 Inactive clotrimazole-betamethasone 1 %-0.05 % topical cream RxNorm: 602996 Application TOP BID to elbow rash 07/19/2017 06/16/2018 Inactive Singulair 10 mg tablet RxNorm: 643415 Tablet(s) TAKE ONE TABLET BY MOUTH DAILY 07/18/2017 04/13/2018 Inactive triamterene 75 mg-hydrochlorothiazide 50 mg tablet RxNorm: 3 12540 1 Tablet(s) PO QD 07/18/2017 01/14/2018 Inactive Celebrex 200 mg capsule RxNorm: 457760 Capsule(s) TAKE ONE CAPSULE BY MOUTH TWICE A DAY 07/18/2017 10/15/2017 Inactive hydrocodone 10 mg-acetaminophen 325 mg tablet RxNorm: 286653 1-2 Tablet(s) QID as needed for pain MUST LAST 30 DAYS 06/19/2017 07/18/2017 Inactive (Response to an electronic controlled substance refill request - RxReferenceNumber: [id number]) hydrocodone 10 mg-acetaminophen 325 mg tablet RxNorm: 705837 1-2 Tablet(s) QID as needed for pain MUST LAST 30 DAYS 06/19/2017 06/18/2017 Inactive (Response to an electronic controlled substance refill request - RxReferenceNumber: [id number]) baclofen 20 mg tablet RxNorm: 547061 1 Tablet(s) PO TID as needed for muscle spasm 06/18/2017 08/20/2017 Inactive Medrol (Dustin) 4 mg tablets in a dose pack RxNorm: 804543 Tablet(s) PO As Directed 06/05/2017 07/18/2017 Inactive omeprazole 40 mg capsule,delayed release RxNorm: 516192 1 Capsu le(s) PO QD 04/20/2017 10/16/2017 Inactive Premarin 1.25 mg tablet RxNorm: 718783 1-2 Tablet(s) PO QD 04/11/20 17 05/15/2018 Inactive duloxetine 60 mg capsule,delayed release RxNorm: 770172 1 Capsu le(s) PO QD 04/11/2017 09/19/2017 Inactive furosemide 40 mg tablet RxNorm: 695234 1 Tablet(s) PO Q AM prn edema--take with potassium 04/11/2017 12/11/2017 Inactive Klor-Con 8 mEq tablet,extended release RxNorm: 343015 1 Tablet( s) PO BID 04/11/2017 01/14/2018 Inactive Lipitor 10 mg tablet RxNorm: 267071 1 Tablet(s) PO QHS 04/11/201702/2018 Inactive amlodipine 5 mg-benazepril 20 mg capsule RxNorm: 218980 1 Capsu le(s) PO QD 04/11/2017 01/29/2018 Inactive allopurinol 300 mg tablet RxNorm: 719185 1 Tablet(s) PO QD 04/11/20 17 01/14/2018 Inactive clonidine HCl 0.1 mg tablet RxNorm: 277802 1 Tablet(s) PO QID 04/0508/19/2017 Inactive baclofen 20 mg tablet RxNorm: 398192 1 Tablet(s) PO TID as needed for muscle spasm 04/02/2017 06/18/2017 Inactive Premarin 1.25 mg tablet RxNorm: 781184 1-2 Tablet(s) PO QD 03/20/20 17 04/10/2017 Inactive hydrocodone 10 mg-acetaminophen 325 mg tablet RxNorm: 248327 1-2 Tablet(s) QID as needed for pain MUST LAST 30 DAYS 03/14/2017 01/21/2019 Inactive (Response to an electronic controlled substance refill request - RxReferenceNumber: [id number]) metoprolol tartrate 100 mg tablet RxNorm: 521832 1 Tablet(s) PO BID 02/12/2017 08/20/2017 Inactive hydrocodone 10 mg-acetaminophen 325 mg tablet RxNorm: 986846 1-2 Tablet(s) QID as needed for pain MUST LAST 30 DAYS 02/08/2017 03/09/2017 Inactive (Response to an electronic controlled substance refill request - RxReferenceNumber: [id number]) metoprolol tartrate 100 mg tablet RxNorm: 674179 TAKE O NE TABLET BY MOUTH TWICE A DAY 01/11/2017 02/12/2017 Inactive metoprolol tartrate 100 mg tablet RxNorm: 907137 1 Tablet(s) PO BID 12/18/2016 12/17/2016 Inactive metoprolol tartrate 100 mg tablet RxNorm: 698425 1 Tablet(s) PO BID 12/18/2016 01/10/2017 Inactive furosemide 40 mg tablet RxNorm: 997342 1 Tablet(s) PO Q AM prn edema--take with potassium 12/13/2016 02/10/2017 Inactive amitriptyline 100 mg tablet RxNorm: 031997 1 Tablet(s) PO QHS 11/2812/12/2016 Inactive baclofen 20 mg tablet RxNorm: 840258 1 Tablet(s) PO TID as needed for muscle spasm 11/14/2016 04/01/2017 Inactive triamterene 75 mg-hydrochlorothiazide 50 mg tablet RxNorm: 3 34370 1 Tablet(s) PO QD 11/14/2016 11/13/2016 Inactive metolazone 2.5 mg tablet RxNorm: 452958 TAKE ONE TABLET BY MOUTH DAILY NEEDED FOR EDEMA 11/14/2016 12/12/2016 Inactive triamterene 75 mg-hydrochlorothiazide 50 mg tablet RxNorm: 3 97477 1 Tablet(s) PO QD 11/14/2016 07/18/2017 Inactive amitriptyline 50 mg tablet RxNorm: 683836 TAKE ONE TABL ET BY MOUTH AT BEDTIME NEEDED FOR SLEEP 11/14/2016 11/27/2016 Inactive Cymbalta 60 mg capsule,delayed release RxNorm: 405292 1 Capsule (s) PO QHS 11/14/2016 12/12/2016 Inactive clonidine HCl 0.1 mg tablet RxNorm: 775214 1 Tablet(s) PO QID 11/1304/04/2017 Inactive amitriptyline 50 mg tablet RxNorm: 250377 1 Tablet(s) P O QHS as needed for sleep 11/01/2016 11/27/2016 Inactive duloxetine 60 mg capsule,delayed release RxNorm: 720615 TAKE ONE CAPSULE BY MOUTH DAILY 10/20/2016 01/17/2017 Inactive allopurinol 300 mg tablet RxNorm: 186136 TAKE ONE TABLET BY LOPEZ TH DAILY 10/20/2016 01/16/2017 Inactive Lyrica 75 mg capsule RxNorm: 715770 TAKE ONE CAPSULE BY MOUTH EVERY NIGHT AT BEDTIME 10/20/2016 12/10/2016 Inactive Klor-Con 8 mEq tablet,extended release RxNorm: 172780 T FARRUKH ONE TABLET BY MOUTH TWICE A DAY 10/20/2016 01/17/2017 Inactive Celebrex 200 mg capsule RxNorm: 876815 TAKE ONE CAPSULE BY MOUT H TWICE A DAY 10/20/2016 07/18/2017 Inactive Bystolic 10 mg tablet RxNorm: 683375 TAKE ONE TABLET BY MOUTH EVERY NIGHT AT BEDTIME 10/20/2016 12/17/2016 Inactive amlodipine 5 mg-benazepril 20 mg capsule RxNorm: 626378 TAKE ONE CAPSULE BY MOUTH EVERY NIGHT AT BEDTIME -- TO REPLACE AMLODOPINE 10/20/20162016 Inactive Lipitor 10 mg tablet RxNorm: 272440 TAKE ONE TABLET BY MOUTH EVERY NIGHT AT BEDTIME 10/20/2016 01/17/2017 Inactive alprazolam 0.5 mg tablet RxNorm: 755283 3 Tablet(s) PO QHS as needed for sleep/anxiety 09/20/2016 10/31/2016 Inactive Tamiflu 75 mg capsule RxNorm: 844172 1 Capsule(s) PO QD 09/19/2016 Inactive Lyrica 75 mg capsule RxNorm: 676083 1 Capsule(s) PO QHS 09/19/2016 Inactive prednisone 20 mg tablet RxNorm: 502882 1 Tablet(s) PO QD 08/10/2016 1 10/17/2015 Inactive doxycycline hyclate 100 mg capsule RxNorm: 9103503 1 Capsule(s) PO BID 08/10/2016 08/19/2016 Inactive Medrol (Dust[place]) 4 mg tablets in a dose pack RxNorm: 245765 Tablet(s) PO As Directed 07/31/2016 08/22/2016 Inactive Singulair 10 mg tablet RxNorm: 212574 TAKE ONE TABLET BY MOUTH JOSÉ Y 07/27/2016 07/18/2017 Inactive hydrocodone 10 mg-acetaminophen 325 mg tablet RxNorm: 923449 1-2 Tablet(s) QID as needed for pain MUST LAST 30 DAYS 07/26/2016 08/24/2016 Inactive (Response to an electronic controlled substance refill request - RxReferenceNumber: [id number]) alprazolam 0.5 mg tablet RxNorm: 133986 3 Tablet(s) PO QHS as needed for anxiety or sleep 07/26/2016 09/20/2016 Inactive clindamycin 300 mg capsule RxNorm: 984799 1 Capsule(s) PO TID 07/2007/29/2016 Inactive Diflucan 100 mg tablet RxNorm: 007803 1 Tablet(s) PO QD 07/20/2016 Inactive Levaquin 500 mg tablet RxNorm: 333952 1 Tablet(s) PO QD 07/17/2016 Inactive Levaquin 500 mg tablet RxNorm: 312592 1 Tablet(s) PO QD 07/10/2016 Inactive Levaquin 500 mg tablet RxNorm: 556827 1 Tablet(s) PO QD 07/10/2016 Inactive mupirocin 2 % topical ointment RxNorm: 798446 TOP Apply topically to affected areas twice daily 07/06/2016 09/18/2016 Inactive Singulair 10 mg tablet RxNorm: 630821 TAKE ONE TABLET BY MOUTH JOSÉ Y 06/21/2016 01/21/2019 Inactive alprazolam 0.5 mg tablet RxNorm: 561760 TAKE THREE TABL ETS BY MOUTH AT BEDTIME NEEDED FOR SLEEP OR STRESS 05/22/2016 06/20/2016 Inactive triamterene 75 mg-hydrochlorothiazide 50 mg tablet RxNorm: 3 04256 1 Tablet(s) PO QD 04/26/2016 10/21/2016 Inactive Premarin 1.25 mg tablet RxNorm: 738529 1-2 Tablet(s) PO QD 04/26/20 16 03/20/2017 Inactive Klor-Con 8 mEq tablet,extended release RxNorm: 606118 1 Tablet( s) PO BID 04/26/2016 10/19/2016 Inactive Celebrex 200 mg capsule RxNorm: 851925 1 Capsule(s) PO BID TAKE ONE CAPSULE BY MOUTH EVERY DAY 04/26/2016 10/19/2016 Inactive Lipitor 10 mg tablet RxNorm: 406752 1 Tablet(s) PO QHS 04/26/201605/2017 Inactive allopurinol 300 mg tablet RxNorm: 086932 1 Tablet(s) PO QD TAKE ONE TABLET BY MOUTH EVERY DAY 04/26/2016 10/19/2016 Inactive amlodipine 5 mg-benazepril 20 mg capsule RxNorm: 158610 1 Capsule(s) PO QHS replaces amlodopine 04/26/2016 10/19/2016 Inactive duloxetine 60 mg capsule,delayed release RxNorm: 858613 1 Capsu le(s) PO QD 04/26/2016 10/19/2016 Inactive Bystolic 10 mg tablet RxNorm: 305507 1 Tablet(s) PO QHS 04/26/2016 Inactive Singulair 10 mg tablet RxNorm: 649471 1 Tablet(s) PO QD TAKE ONE TABLET BY MOUTH DAILY 04/26/2016 06/20/2016 Inactive clonidine HCl 0.1 mg tablet RxNorm: 693703 1 Tablet(s) PO QID 04/2610/22/2016 Inactive hydrocodone 10 mg-acetaminophen 325 mg tablet RxNorm: 202339 1-2 Tablet(s) QID as needed for pain TAKE ONE TO TWO TABLETS BY MOUTH FOUR TIMES A DAY . MUST LAST 30 DAYS 03/31/2016 04/29/2016 Inactive (Response to an electronic controlled substance refill request - RxReferenceNumber: [id number]) Klor-Con 8 mEq tablet,extended release RxNorm: 306001 T FARRUKH ONE TABLET BY MOUTH TWICE A DAY 03/24/2016 04/22/2016 Inactive prednisone 20 mg tablet RxNorm: 867921 1 Tablet(s) PO QD 03/09/2016 0 03/08/2016 Inactive prednisone 20 mg tablet RxNorm: 103246 1 Tablet(s) PO QD 03/09/2016 0 03/13/2016 Inactive alprazolam 0.5 mg tablet RxNorm: 974896 3 Tablet(s) PO QHS as needed for sleep/stress 03/02/2016 01/21/2019 Inactive mupirocin 2 % topical ointment RxNorm: 186155 TOP twice daily to affected areas of face and neck 02/21/2016 04/25/2016 Inactive clonidine HCl 0.1 mg tablet RxNorm: 586870 TAKE ONE TAB LET BY MOUTH FOUR TIMES A DAY 02/15/2016 03/15/2016 Inactive clonidine HCl 0.1 mg tablet RxNorm: 371804 1 Tablet(s) PO QID 02/1404/25/2016 Inactive Premarin 1.25 mg tablet RxNorm: 241082 1-2 Tablet(s) PO QD 02/15/20 16 03/15/2016 Inactive Klor-Con 8 mEq tablet,extended release RxNorm: 378311 T FARRUKH ONE TABLET BY MOUTH TWICE A DAY 02/15/2016 03/15/2016 Inactive potassium chloride ER 20 mEq tablet,extended release(part/cr yst) RxNorm: 096058 2 Tablet(s) PO BID 02/15/2016 03/15/2016 Inactive Macrobid 100 mg capsule RxNorm: 137565 1 Capsule(s) PO BID 01/24/20 16 01/30/2016 Inactive prednisone 20 mg tablet RxNorm: 164419 Take 3tabs PO QD x 2 days, then 2 tabs PO QD x 2 days, then 1 tab PO QD x 2 days, then 1/2 tab PO QDy x 2 days 12/23/2015 04/25/2016 Inactive Klor-Con 8 mEq tablet,extended release RxNorm: 814220 T FARRUKH ONE TABLET BY MOUTH TWICE A DAY 12/20/2015 02/14/2016 Inactive alprazolam 1 mg tablet RxNorm: 230985 1 1/2 Tablet(s) PO QHS 201501/23/2016 Inactive nystatin 100,000 unit/gram topical cream RxNorm: 213328 APPLY TO AFFECTED AREA(S) TWO TIMES A DAY 11/30/2015 12/14/2015 Inactive Singulair 10 mg tablet RxNorm: 539656 TAKE ONE TABLET BY MOUTH JOSÉ Y 11/18/2015 04/25/2016 Inactive allopurinol 300 mg tablet RxNorm: 583607 1 Tablet(s) PO QD TAKE ONE TABLET BY MOUTH EVERY DAY 10/26/2015 04/22/2016 Inactive Singulair 10 mg tablet RxNorm: 275800 TAKE ONE TABLET BY MOUTH JOSÉ Y 10/26/2015 11/17/2015 Inactive duloxetine 60 mg capsule,delayed release RxNorm: 500436 1 Capsu le(s) PO QD 10/26/2015 04/22/2016 Inactive triamterene 75 mg-hydrochlorothiazide 50 mg tablet RxNorm: 3 70111 1 Tablet(s) PO QD 10/26/2015 11/14/2016 Inactive potassium chloride ER 20 mEq tablet,extended release(part/cr yst) RxNorm: 603450 2 Tablet(s) PO BID 10/26/2015 02/14/2016 Inactive Lipitor 10 mg tablet RxNorm: 040353 1 Tablet(s) PO QHS 10/26/2015 Inactive amlodipine 5 mg-benazepril 20 mg capsule RxNorm: 885261 1 Capsule(s) PO QHS replaces amlodopine 10/26/2015 04/22/2016 Inactive Bystolic 10 mg tablet RxNorm: 257839 1 Tablet(s) PO QHS 10/26/2015 Inactive amlodipine 5 mg-benazepril 20 mg capsule RxNorm: 577278 1 Capsule(s) PO QHS replaces amlodopine 10/06/2015 10/25/2015 Inactive amlodipine 5 mg tablet RxNorm: 329030 1 Tablet(s) PO QHS 09/30/2015 0 04/25/2016 Inactive metolazone 2.5 mg tablet RxNorm: 487569 TAKE ONE TABLET BY MOUTH DAILY NEEDED FOR EDEMA 09/30/2015 01/21/2019 Inactive duloxetine 60 mg capsule,delayed release RxNorm: 261727 1 Capsu le(s) PO QD 09/30/2015 10/25/2015 Inactive cephalexin 500 mg capsule RxNorm: 585054 1 Capsule(s) PO BID 201509/23/2015 Inactive mupirocin 2 % topical ointment RxNorm: 223624 TOP twice daily to affected areas of face and neck 09/14/2015 02/20/2016 Inactive baclofen 20 mg tablet RxNorm: 329732 1 Tablet(s) PO TID as needed for muscle spasm 09/01/2015 11/14/2016 Inactive clonidine HCl 0.1 mg tablet RxNorm: 545736 1 Tablet(s) PO QID 09/0102/14/2016 Inactive alprazolam 1 mg tablet RxNorm: 004864 1 1/2 Tablet(s) PO QHS 201409/09/2015 Inactive baclofen 20 mg tablet RxNorm: 377706 1 Tablet(s) PO TID as needed for muscle spasm 07/23/2015 09/01/2015 Inactive omeprazole 40 mg capsule,delayed release RxNorm: 869583 1 Capsu le(s) PO QD 07/23/2015 04/25/2016 Inactive alprazolam 1 mg tablet RxNorm: 364227 1 1/2 Tablet(s) PO QHS 201408/10/2015 Inactive Bystolic 10 mg tablet RxNorm: 204520 1 Tablet(s) PO BID 06/24/2015 Inactive allopurinol 300 mg tablet RxNorm: 445798 1 Tablet(s) PO QD TAKE ONE TABLET BY MOUTH EVERY DAY 06/23/2015 10/20/2015 Inactive alprazolam 1 mg tablet RxNorm: 876239 1 1/2 Tablet(s) PO QHS 201407/06/2015 Inactive clonidine HCl 0.1 mg tablet RxNorm: 585370 1 Tablet(s) PO QID 06/0209/01/2015 Inactive clonidine HCl 0.1 mg tablet RxNorm: 405874 1 Tablet(s) PO QID 06/0206/01/2015 Inactive Cymbalta 60 mg capsule,delayed release RxNorm: 268304 1 Capsule (s) PO QHS 06/02/2015 08/30/2015 Inactive Cymbalta 60 mg capsule,delayed release RxNorm: 037619 1 Capsule (s) PO QHS 06/02/2015 06/01/2015 Inactive clonidine HCl 0.1 mg tablet RxNorm: 441173 1 Tablet(s) PO TID 05/3106/01/2015 Inactive replaces 0.2mg dose metolazone 2.5 mg tablet RxNorm: 597946 TAKE ONE TABLET BY MOUTH DAILY NEEDED FOR EDEMA 05/21/2015 06/19/2015 Inactive Singulair 10 mg tablet RxNorm: 505922 TAKE ONE TABLET BY MOUTH JOSÉ Y 05/21/2015 10/17/2015 Inactive Cymbalta 30 mg capsule,delayed release RxNorm: 618660 1 Capsule (s) PO QHS 05/20/2015 11/14/2016 Inactive betamethasone valerate 0.1 % topical cream RxNorm: 204114 Appli cation TOP BID 05/10/2015 04/25/2016 Inactive Bactroban 2 % topical ointment RxNorm: 889598 Application TOP BID 0 05/10/2015 06/20/2015 Inactive baclofen 20 mg tablet RxNorm: 054566 1 Tablet(s) PO TID as needed 0 04/26/2015 07/23/2015 Inactive Lipitor 10 mg tablet RxNorm: 704232 1 Tablet(s) PO QHS 04/26/201508/2016 Inactive clonidine HCl 0.1 mg tablet RxNorm: 945469 1 Tablet(s) PO TID 04/2605/30/2015 Inactive replaces 0.2mg dose Klor-Con 8 mEq tablet,extended release RxNorm: 515129 1 Tablet( s) PO BID 04/26/2015 04/25/2016 Inactive metolazone 2.5 mg tablet RxNorm: 561278 1 Tablet(s) PO QD as ne eded for edema 04/26/2015 04/25/2015 Inactive triamterene 75 mg-hydrochlorothiazide 50 mg tablet RxNorm: 3 22098 1 Tablet(s) PO QD 04/26/2015 10/22/2015 Inactive Premarin 1.25 mg tablet RxNorm: 462619 1-2 Tablet(s) PO QD 04/26/20 15 10/22/2015 Inactive Bystolic 10 mg tablet RxNorm: 305888 1 Tablet(s) PO QAM TAKE ONE TABLET BY MOUTH EVERY MORNING 04/23/2015 06/23/2015 Inactive clonidine HCl 0.1 mg tablet RxNorm: 216063 1 Tablet(s) PO TID 03/2304/25/2015 Inactive replaces 0.2mg dose nystatin 100,000 unit/gram topical cream RxNorm: 377016 Applica tion TOP BID 03/23/2015 06/20/2015 Inactive baclofen 20 mg tablet RxNorm: 867672 1 Tablet(s) PO TID as needed 0 03/23/2015 04/25/2015 Inactive Premarin 1.25 mg tablet RxNorm: 489867 1-2 Tablet(s) PO QD 03/23/20 15 04/25/2015 Inactive Klor-Con 8 mEq tablet,extended release RxNorm: 209862 1 Tablet( s) PO BID 03/23/2015 04/25/2015 Inactive cefdinir 300 mg capsule RxNorm: 463650 2 Capsule(s) PO QD 03/16/2015 03/25/2015 Inactive baclofen 20 mg tablet RxNorm: 304075 1 Tablet(s) PO TID as needed 0 03/02/2015 03/22/2015 Inactive allopurinol 300 mg tablet RxNorm: 878995 1 Tablet(s) PO QD TAKE ONE TABLET BY MOUTH EVERY DAY 02/22/2015 05/22/2015 Inactive Klor-Con M20 mEq tablet,extended release RxNorm: 985894 2 Tablet(s) PO BID to use with lasix 02/22/2015 06/20/2015 Inactive clonidine HCl 0.1 mg tablet RxNorm: 358002 1 Tablet(s) PO TID 02/1903/22/2015 Inactive replaces 0.2mg dose Lipitor 10 mg tablet RxNorm: 055950 1 Tablet(s) PO QHS 01/20/201506/2015 Inactive Lipitor 10 mg tablet RxNorm: 801075 1 Tablet(s) PO QHS 01/20/2015 Inactive Singulair 10 mg tablet RxNorm: 746536 1 Tablet(s) PO QD TAKE ONE TABLET BY MOUTH EVERY DAY 11/20/2014 05/18/2015 Inactive Lipitor 10 mg tablet RxNorm: 297870 1 Tablet(s) PO QHS 11/20/201408/2015 Inactive allopurinol 300 mg tablet RxNorm: 262471 1 Tablet(s) PO QD TAKE ONE TABLET BY MOUTH EVERY DAY 11/20/2014 02/16/2015 Inactive Bystolic 10 mg tablet RxNorm: 403724 1 Tablet(s) PO QAM TAKE ONE TABLET BY MOUTH EVERY MORNING 11/20/2014 04/22/2015 Inactive Klor-Con 8 mEq tablet,extended release RxNorm: 375881 1 Tablet( s) PO BID 11/20/2014 02/17/2015 Inactive baclofen 20 mg tablet RxNorm: 205769 1 Tablet(s) PO TID as needed 0 11/20/2014 01/21/2019 Inactive baclofen 20 mg tablet RxNorm: 909736 1 Tablet(s) PO TID as needed 0 10/27/2014 11/19/2014 Inactive baclofen 20 mg tablet RxNorm: 987350 1 Tablet(s) PO TID as needed 0 10/26/2014 03/01/2015 Inactive allopurinol 300 mg tablet RxNorm: 288074 1 Tablet(s) PO QD TAKE ONE TABLET BY MOUTH EVERY DAY 10/26/2014 11/20/2014 Inactive Bystolic 10 mg tablet RxNorm: 776068 1 Tablet(s) PO QAM TAKE ONE TABLET BY MOUTH EVERY MORNING 10/26/2014 11/20/2014 Inactive clonidine HCl 0.1 mg tablet RxNorm: 116302 1 Tablet(s) PO TID 09/2805/27/2019 Inactive replaces 0.2mg dose clonidine HCl 0.1 mg tablet RxNorm: 788676 1 Tablet(s) PO TID 09/2802/18/2015 Inactive replaces 0.2mg dose baclofen 20 mg tablet RxNorm: 279671 1 Tablet(s) PO TID as needed 1 11/01/2013 08/30/2014 Inactive Lipitor 10 mg tablet RxNorm: 000787 1 Tablet(s) PO QHS 08/31/2014 Inactive baclofen 20 mg tablet RxNorm: 037003 1 Tablet(s) PO TID as needed 1 11/01/2013 10/26/2014 Inactive triamterene 75 mg-hydrochlorothiazide 50 mg tablet RxNorm: 3 78789 1 Tablet(s) PO QD 08/31/2014 02/26/2015 Inactive Klor-Con 8 mEq tablet,extended release RxNorm: 612322 1 Tablet( s) PO BID 08/31/2014 11/20/2014 Inactive baclofen 20 mg tablet RxNorm: 848025 1 Tablet(s) PO TID as needed 1 09/30/2013 10/25/2014 Inactive baclofen 20 mg tablet RxNorm: 102237 1 Tablet(s) PO TID as needed 1 09/30/2013 08/31/2014 Inactive omeprazole 40 mg capsule,delayed release RxNorm: 748814 1 Capsu le(s) PO QD 07/21/2014 07/23/2015 Inactive Flonase 50 mcg/actuation nasal spray,suspension RxNorm: 8963 23 1 [place] NASAL BID 07/15/2014 04/09/2017 Inactive hydrocodone 10 mg-acetaminophen 325 mg tablet RxNorm: 071046 1-2 Tablet(s) QID as needed for pain TAKE ONE TO TWO TABLETS BY MOUTH FOUR TIMES A DAY . MUST LAST 30 DAYS 06/30/2014 07/27/2014 Inactive (Response to an electronic controlled substance refill request - RxReferenceNumber: [id number]) baclofen 20 mg tablet RxNorm: 268469 1 Tablet(s) PO TID as needed 1 07/31/2014 Inactive Singulair 10 mg tablet RxNorm: 535764 1 Tablet(s) PO QD TAKE ONE TABLET BY MOUTH EVERY DAY 05/25/2014 11/20/2014 Inactive Bystolic 10 mg tablet RxNorm: 266066 TAKE ONE TABLET BY MOUTH E VERY MORNING 05/25/2014 09/21/2014 Inactive allopurinol 300 mg tablet RxNorm: 463397 1 Tablet(s) PO QD TAKE ONE TABLET BY MOUTH EVERY DAY 05/25/2014 10/21/2014 Inactive baclofen 20 mg tablet RxNorm: 608648 1 Tablet(s) PO TID as needed 0 05/25/2014 06/29/2014 Inactive allopurinol 300 mg tablet RxNorm: 317200 TAKE ONE TABLET BY LOPEZ TH EVERY DAY 05/25/2014 09/21/2014 Inactive Singulair 10 mg tablet RxNorm: 707979 1 Tablet(s) PO QD TAKE ONE TABLET BY MOUTH EVERY DAY 05/25/2014 05/24/2014 Inactive Bystolic 10 mg tablet RxNorm: 733162 1 Tablet(s) PO QAM TAKE ONE TABLET BY MOUTH EVERY MORNING 05/25/2014 10/21/2014 Inactive metolazone 2.5 mg tablet RxNorm: 239138 1 Tablet(s) PO QD as ne eded for edema 05/18/2014 04/25/2015 Inactive Lasix 40 mg tablet RxNorm: 594947 1 Tablet(s) PO QAM s hould take potassium supplementation with this medication 05/14/2014 05/17/2014 Inactive hydrocodone 10 mg-acetaminophen 325 mg tablet RxNorm: 687103 1-2 Tablet(s) QID as needed for pain TAKE ONE TO TWO TABLETS BY MOUTH FOUR TIMES A DAY . MUST LAST 30 DAYS 05/07/2014 06/05/2014 Inactive (Response to an electronic controlled substance refill request - RxReferenceNumber: [id number]) alprazolam 0.5 mg tablet RxNorm: 950460 TAKE ONE TABLET BY MOUTH TWICE A DAY , MUST LAST 30 DAYS 05/07/2014 05/22/2016 Inactive (Response to a n electronic controlled substance refill request - RxReferenceNumber: [id number]) diclofenac sodium 75 mg tablet,delayed release RxNorm: 07083 6 1 Tablet(s) PO BID for pain 04/24/2014 07/20/2014 Inactive Celebrex 200 mg capsule RxNorm: 119147 TAKE ONE CAPSULE BY MOUT H EVERY DAY 04/24/2014 07/20/2014 Inactive alprazolam 0.5 mg tablet RxNorm: 468588 TAKE ONE TABLET BY MOUTH TWICE A DAY , MUST LAST 30 DAYS 03/24/2014 04/22/2014 Inactive (Response to a n electronic controlled substance refill request - RxReferenceNumber: [id number]) diclofenac sodium 75 mg tablet,delayed release RxNorm: 23151 6 1 Tablet(s) PO BID for pain 03/24/2014 04/24/2014 Inactive clonidine HCl 0.1 mg tablet RxNorm: 019848 1 Tablet(s) PO TID 03/2409/28/2014 Inactive replaces 0.2mg dose Klor-Con 8 mEq tablet,extended release RxNorm: 224460 1 Tablet( s) PO BID 02/26/2014 08/31/2014 Inactive diclofenac sodium 75 mg tablet,delayed release RxNorm: 02573 6 1 Tablet(s) PO BID for pain 02/25/2014 03/24/2014 Inactive hydrocodone 10 mg-acetaminophen 325 mg tablet RxNorm: 698585 1-2 Tablet(s) QID as needed for pain TAKE ONE TO TWO TABLETS BY MOUTH FOUR TIMES A DAY . MUST LAST 30 DAYS 02/25/2014 03/26/2014 Inactive (Response to an electronic controlled substance refill request - RxReferenceNumber: [id number]) alprazolam 0.5 mg tablet RxNorm: 481977 Tablet(s) PO BI D as needed for anxiety TAKE ONE TABLET BY MOUTH TWICE A DAY , MUST LAST 30 DAYS 02/25/2014 Inactive (Response to an electronic controlled [place] bstance refill request - RxReferenceNumber: [id number]) [AttnRPh: Saving apply/adjudicate RxGRP:SG20 RxBIN:[id number] RxPCN: ID#:[id number]] alprazolam 0.5 mg tablet RxNorm: 339013 Tablet(s) TAKE ONE TABLET BY MOUTH TWICE A DAY , MUST LAST 30 DAYS 01/27/2014 02/24/2014 Inactive (Respo nse to an electronic controlled substance refill request - RxReferenceNumber: [id number]) [AttnRPh: Saving apply/adjudicate RxGRP:SG20 RxBIN:[id number] RxPCN: ID#:[id number]] hydrocodone 10 mg-acetaminophen 325 mg tablet RxNorm: 805552 1-2 Tablet(s) QID as needed for pain TAKE ONE TO TWO TABLETS BY MOUTH FOUR TIMES A DAY . MUST LAST 30 DAYS 01/27/2014 02/24/2014 Inactive (Response to an electronic controlled substance refill request - RxReferenceNumber: [id number]) alprazolam 0.5 mg tablet RxNorm: 049821 TAKE ONE TABLET BY MOUTH TWICE A DAY , MUST LAST 30 DAYS 01/27/2014 01/26/2014 Inactive (Response to a n electronic controlled substance refill request - RxReferenceNumber: [id number]) Premarin 1.25 mg tablet RxNorm: 003498 1-2 Tablet(s) PO QD 01/28/20 14 07/25/2014 Inactive alprazolam 0.5 mg tablet RxNorm: 154492 TAKE ONE TABLET BY MOUTH TWICE A DAY , MUST LAST 30 DAYS 01/27/2014 01/27/2014 Inactive (Response to a n electronic controlled substance refill request - RxReferenceNumber: [id number]) hydrocodone 10 mg-acetaminophen 325 mg tablet RxNorm: 996208 TAKE ONE TO TWO TABLETS BY MOUTH FOUR TIMES A DAY . MUST LAST 30 DAYS 01/27/20142013 Inactive (Response to an electronic controlled [place] bstance refill request - RxReferenceNumber: [id number]) Celebrex 200 mg capsule RxNorm: 189985 1 Capsule(s) PO QD TAKE ONE CAPSULE BY MOUTH EVERY DAY 12/29/2013 04/27/2014 Inactive hydrocodone 10 mg-acetaminophen 325 mg tablet RxNorm: 884437 1-2 Tablet(s) PO QID as needed for severe pain 12/29/2013 01/27/2014 Inactive allopurinol 300 mg tablet RxNorm: 630936 1 Tablet(s) PO QD TAKE ONE TABLET BY MOUTH EVERY DAY 12/29/2013 05/24/2014 Inactive alprazolam 0.5 mg tablet RxNorm: 896050 TAKE ONE TABLET BY MOUTH TWICE A DAY , MUST LAST 30 DAYS 12/29/2013 01/27/2014 Inactive (Response to a n electronic controlled substance refill request - RxReferenceNumber: [id number]) Celebrex 200 mg capsule RxNorm: 280801 1 Capsule(s) PO QD TAKE ONE CAPSULE BY MOUTH EVERY DAY 12/29/2013 12/29/2013 Inactive Bystolic 10 mg tablet RxNorm: 106607 1 Tablet(s) PO QAM TAKE ONE TABLET BY MOUTH EVERY MORNING 12/29/2013 05/24/2014 Inactive Bystolic 10 mg tablet RxNorm: 524901 1 Tablet(s) PO QAM TAKE ONE TABLET BY MOUTH EVERY MORNING 12/29/2013 12/29/2013 Inactive Singulair 10 mg tablet RxNorm: 639168 1 Tablet(s) PO QD TAKE ONE TABLET BY MOUTH EVERY DAY 12/29/2013 05/25/2014 Inactive hydrocodone 10 mg-acetaminophen 325 mg tablet RxNorm: 009815 TAKE ONE TO TWO TABLETS BY MOUTH FOUR TIMES A DAY . MUST LAST 30 DAYS 12/29/20132013 Inactive (Response to an electronic controlled [place] bstance refill request - RxReferenceNumber: [id number]) Trazadone 75mg Tablet RxNorm: 1 Tablet(s) PO QHS as needed 03/23/2014 Inactive Trazadone 75mg Tablet RxNorm: 1 Tablet(s) PO QHS 12/24/20132014 Inactive Soma 350 mg tablet RxNorm: 927529 Tablet(s) PO TAKE ON E TABLET BY MOUTH THREE TIMES A DAY NEEDED FOR MUSCLE SPASMS. THIS MUST LAST 30 DAYS BETWEEN REFILLS. 12/10/2013 12/22/2013 Inactive (Appended: Cont rolled substance eRx refill - RxReferenceNumber: [id number]) diclofenac sodium 75 mg tablet,delayed release RxNorm: 65108 6 1 Tablet(s) PO BID for pain 12/10/2013 02/24/2014 Inactive allopurinol 300 mg tablet RxNorm: 003507 1 Tablet(s) PO QD 11/20/19 14 12/29/2013 Inactive alprazolam 0.5 mg tablet RxNorm: 109449 2 Tablet(s) PO BID 11/13/19 14 12/29/2013 Inactive prn clonidine 0.1 mg tablet RxNorm: 458445 1 Tablet(s) PO TID 11/12/2013 02/09/2014 Inactive replaces 0.2mg dose Klor-Con M20 mEq tablet,extended release RxNorm: 976134 2 Tablet(s) PO BID to use with lasix 11/12/2013 05/10/2014 Inactive Singulair 10 mg tablet RxNorm: 029841 1 Tablet(s) PO QD 11/12/2013 Inactive hydrocodone 10 mg-acetaminophen 325 mg tablet RxNorm: 194946 1-2 Tablet(s) PO QID as needed for severe pain 11/12/2013 12/28/2013 Inactive Bystolic 10 mg tablet RxNorm: 797738 1 Tablet(s) PO QAM 11/12/2013 Inactive Soma 350 mg tablet RxNorm: 901547 Tablet(s) PO TAKE ON E TABLET BY MOUTH THREE TIMES A DAY NEEDED FOR MUSCLE SPASMS. THIS MUST LAST 30 DAYS BETWEEN REFILLS. 10/13/2013 12/10/2013 Inactive (Appended: Cont rolled substance eRx refill - RxReferenceNumber: [id number]) hydrocodone 10 mg-acetaminophen 325 mg tablet RxNorm: 152264 1-2 Tablet(s) PO QID as needed for severe pain 10/03/2013 11/11/2013 Inactive diclofenac sodium 75 mg tablet,delayed release RxNorm: 44729 8 1 Tablet(s) PO BID for pain 09/11/2013 12/10/2013 Inactive alprazolam 0.5 mg tablet RxNorm: 225854 1 Tablet(s) PO BID May refill on 04/26/13 09/01/2013 10/30/2013 Inactive prn hydrocodone 10 mg-acetaminophen 325 mg tablet RxNorm: 896590 1-2 Tablet(s) PO QID as needed for severe pain 09/01/2013 10/02/2013 Inactive triamterene 75 mg-hydrochlorothiazide 50 mg tablet RxNorm: 3 80403 1 Tablet(s) PO QD 08/04/2013 08/31/2014 Inactive cyclobenzaprine 10 mg tablet RxNorm: 448149 1 Tablet(s) PO TID prn spasm 08/04/2013 08/13/2013 Inactive clonidine 0.1 mg tablet RxNorm: 435619 1 Tablet(s) PO TID 08/04/2013 11/11/2013 Inactive replaces 0.2mg dose cyclobenzaprine 10 mg tablet RxNorm: 291129 1 Tablet(s) PO TID prn spasm 07/23/2013 08/01/2013 Inactive hydrocodone 10 mg-acetaminophen 325 mg tablet RxNorm: 015059 2 1-2 Tablet(s) PO QID as needed for severe pain 06/09/2013 08/07/2013 Inactive Singulair 10 mg tablet RxNorm: 582327 1 Tablet(s) PO QD 05/29/2013 Inactive Klor-Con 8 mEq tablet,extended release RxNorm: 642164 1 Tablet( s) PO BID 05/29/2013 02/26/2014 Inactive allopurinol 300 mg tablet RxNorm: 943839 1 Tablet(s) PO QD 05/29/20 13 11/19/2013 Inactive Bystolic 10 mg tablet RxNorm: 021301 1 Tablet(s) PO QAM take one daily in the morning. 05/29/2013 11/11/2013 Inactive scopolamine 1.5 mg 72 hr Transderm Patch RxNorm: 477180 Application TD Q72H for motion sickness 05/26/2013 07/22/2013 Inactive Soma 350 mg tablet RxNorm: 987658 1 Tablet(s) PO TID as needed for spasm 05/19/2013 10/13/2013 Inactive diclofenac sodium 75 mg tablet,delayed release RxNorm: 47492 8 1 Tablet(s) PO BID for pain 05/14/2013 07/22/2013 Inactive allopurinol 300 mg tablet RxNorm: 637904 1 Tablet(s) PO QD 04/25/20 13 05/28/2013 Inactive alprazolam 0.5 mg tablet RxNorm: 789904 1 Tablet(s) PO BID May refill on 04/26/13 04/25/2013 06/23/2013 Inactive prn Celebrex 200 mg capsule RxNorm: 750911 1 Capsule(s) PO QD 04/16/2013 12/29/2013 Inactive alprazolam 0.5 mg tablet RxNorm: 234087 1 Tablet(s) PO BID May refill on 04/26/13 04/16/2013 04/24/2013 Inactive prn Soma 350 mg tablet RxNorm: 902178 1 Tablet(s) PO TID as needed for spasm 04/16/2013 No Stop Date Active Lasix 40 mg tablet RxNorm: 042496 1 Tablet(s) PO QAM s hould take potassium supplementation with this medication 04/16/2013 06/14/2013 Inactive clonidine 0.1 mg tablet RxNorm: 220847 1 Tablet(s) PO TID 04/16/2013 08/03/2013 Inactive replaces 0.2mg dose prednisone 20 mg tablet RxNorm: 724006 1 Tablet(s) PO BID 04/16/2013 04/20/2013 Inactive diclofenac sodium 75 mg tablet,delayed release RxNorm: 25525 8 1 Tablet(s) PO BID for pain 04/14/2013 05/13/2013 Inactive hydrocodone 10 mg-acetaminophen 325 mg tablet RxNorm: 781057 2 1-2 Tablet(s) PO QID as needed for severe pain 04/14/2013 No Stop Date Active Lasix 40 mg tablet RxNorm: 081273 1 Tablet(s) PO QAM s hould take potassium supplementation with this medication 03/31/2013 04/15/2013 Inactive Celebrex 200 mg capsule RxNorm: 026769 1 Capsule(s) PO QD 03/31/2013 04/15/2013 Inactive alprazolam 0.5 mg tablet RxNorm: 899906 1 Tablet(s) PO BID 03/28/20 13 04/15/2013 Inactive prn hydrocodone 10 mg-acetaminophen 325 mg tablet RxNorm: 596684 2 1-2 Tablet(s) PO QID as needed for severe pain 03/10/2013 No Stop Date Active metformin ER 500 mg 24 hr tablet,extended release RxNorm: 86 1018 1 Tablet(s) PO QD 03/06/2013 07/22/2013 Inactive clindamycin 300 mg capsule RxNorm: 537826 2 Capsule(s) PO TID 03/0503/14/2013 Inactive Zaroxolyn 2.5 mg tablet RxNorm: 460015 1 Tablet(s) PO QAM 03/05/2013 05/19/2015 Inactive amlodipine 10 mg tablet RxNorm: 210596 1 Tablet(s) PO QD 03/03/2013 0 05/25/2013 Inactive Norvasc 10 mg tablet RxNorm: 921504 1 Tablet(s) PO QD 02/28/201307/11 Inactive Celebrex 200 mg capsule RxNorm: 778416 1 Capsule(s) PO QD 02/28/2013 03/30/2013 Inactive diclofenac sodium 75 mg tablet,delayed release RxNorm: 08235 8 1 Tablet(s) PO BID for pain 02/14/2013 03/15/2013 Inactive Soma 350 mg tablet RxNorm: 743875 1 Tablet(s) PO TID as needed for spasm 02/14/2013 No Stop Date Active hydrocodone 10 mg-acetaminophen 325 mg tablet RxNorm: 470430 2 1-2 Tablet(s) PO QID as needed for severe pain 02/14/2013 No Stop Date Active Norvasc 10 mg tablet RxNorm: 765205 1 Tablet(s) PO QD 02/10/201302/09 Inactive Celebrex 200 mg capsule RxNorm: 150237 1 Capsule(s) PO QD 01/27/2013 01/26/2013 Inactive Premarin 1.25 mg tablet RxNorm: 535329 1-2 Tablet(s) PO QD 01/28/20 13 06/25/2013 Inactive alprazolam 0.5 mg tablet RxNorm: 284912 1 Tablet(s) PO BID 01/28/20 13 02/25/2013 Inactive prn amlodipine 5 mg tablet RxNorm: 319528 1 Tablet(s) PO QD 01/27/2013 Inactive Celebrex 200 mg capsule RxNorm: 768770 1 Capsule(s) PO QD 01/27/2013 02/27/2013 Inactive gabapentin 600 mg tablet RxNorm: 849497 1 Tablet(s) PO QHS 01/16/20 13 07/22/2013 Inactive Soma 350 mg tablet RxNorm: 741224 1 Tablet(s) PO TID as needed for spasm 01/15/2013 No Stop Date Active hydrocodone 10 mg-acetaminophen 325 mg tablet RxNorm: 821258 2 1-2 Tablet(s) PO QID as needed for severe pain 01/15/2013 No Stop Date Active Soma 350 mg tablet RxNorm: 764519 1 Tablet(s) PO TID as needed for spasm 01/13/2013 No Stop Date Active alprazolam 0.5 mg tablet RxNorm: 008136 1 Tablet(s) PO BID 12/31/19 13 01/26/2013 Inactive prn diclofenac sodium 75 mg tablet,delayed release RxNorm: 32704 8 1 Tablet(s) PO BID for pain 12/09/2012 01/07/2013 Inactive gabapentin 600 mg tablet RxNorm: 255018 1 Tablet(s) PO QHS 12/10/19 13 01/07/2013 Inactive hydrocodone 10 mg-acetaminophen 325 mg tablet RxNorm: 828572 2 1-2 Tablet(s) PO QID as needed for severe pain 12/02/2012 No Stop Date Active Levaquin 750 mg tablet RxNorm: 231859 1 Tablet(s) PO QD 11/21/2012 Inactive Singulair 10 mg tablet RxNorm: 705604 1 Tablet(s) PO QD 11/11/2012 Inactive clonidine 0.2 mg tablet RxNorm: 895427 1 Tablet(s) PO TID 11/11/2012 04/15/2013 Inactive alprazolam 0.5 mg tablet RxNorm: 744601 1 Tablet(s) PO BID 11/12/19 13 12/10/2012 Inactive prn Klor-Con 8 mEq tablet,extended release RxNorm: 329044 1 Tablet( s) PO BID 11/11/2012 03/04/2013 Inactive hydrocodone 10 mg-acetaminophen 325 mg tablet RxNorm: 870518 2 1-2 Tablet(s) PO QID as needed for severe pain 11/06/2012 No Stop Date Active alprazolam 0.5 mg tablet RxNorm: 683114 1 Tablet(s) PO BID 10/15/19 13 11/10/2012 Inactive prn hydrocodone-acetaminophen 10 mg-325 mg tablet RxNorm: 420900 2 1-2 Tablet(s) PO QID as needed for severe pain 10/10/2012 10/09/2012 Inactive allopurinol 300 mg tablet RxNorm: 049806 1 Tablet(s) PO QD 09/20/19 13 12/18/2012 Inactive alprazolam 0.5 mg tablet RxNorm: 033905 1 Tablet(s) PO BID 09/17/19 13 10/14/2012 Inactive prn hydrocodone-acetaminophen 10 mg-325 mg tablet RxNorm: 946786 2 1-2 Tablet(s) PO QID as needed for severe pain 08/22/2012 08/21/2012 Inactive Norvasc 10 mg tablet RxNorm: 093468 1 Tablet(s) PO QD 08/12/201201/10 Inactive Premarin 1.25 mg tablet RxNorm: 526776 1-2 Tablet(s) PO QD 07/30/20 12 12/26/2012 Inactive alprazolam 0.5 mg tablet RxNorm: 058519 1 Tablet(s) PO BID 07/29/20 12 08/27/2012 Inactive prn Klor-Con 8 mEq tablet,extended release RxNorm: 796408 1 Tablet( s) PO BID 07/29/2012 11/10/2012 Inactive hydrocodone-acetaminophen 10 mg-325 mg tablet RxNorm: 682906 2 1-2 Tablet(s) PO QID as needed for severe pain 07/29/2012 No Stop Date Active Premarin 1.25 mg tablet RxNorm: 558113 1-2 Tablet(s) PO QD 07/29/2007/29/2012 Inactive clonidine 0.2 mg tablet RxNorm: 463100 1 Tablet(s) PO TID 07/29/2012 10/28/2012 Inactive ketorolac 10 mg tablet RxNorm: 506914 1 Tablet(s) PO QID prn mitul joseph 07/18/2012 No Stop Date Active hydrocodone-acetaminophen 10 mg-325 mg tablet RxNorm: 234704 2 1-2 Tablet(s) PO QID as needed for severe pain 07/03/2012 No Stop Date Active amlodipine 5 mg tablet RxNorm: 700630 1 Tablet(s) PO QD 07/02/2012 Inactive allopurinol 300 mg tablet RxNorm: 272556 1 Tablet(s) PO QD 07/02/20 12 09/19/2012 Inactive Celebrex 200 mg capsule RxNorm: 450199 1 Capsule(s) PO QD for j oint pain 06/26/2012 10/23/2012 Inactive diclofenac sodium 75 mg tablet,delayed release RxNorm: 71210 8 1 Tablet(s) PO BID for pain 06/19/2012 09/16/2012 Inactive hydrocodone-acetaminophen 10 mg-325 mg tablet RxNorm: 943123 2 1-2 Tablet(s) PO QID as needed for severe pain 06/10/2012 No Stop Date Active alprazolam 0.5 mg tablet RxNorm: 363474 1 Tablet(s) PO BID 06/03/20 12 07/02/2012 Inactive prn ketorolac 10 mg tablet RxNorm: 232104 1 Tablet(s) PO Q8H 05/27/2012 0 01/21/2019 Inactive as needed for headache hydrocodone-acetaminophen 10 mg-325 mg tablet RxNorm: 395620 2 1-2 Tablet(s) PO QID as needed for severe pain 05/15/2012 No Stop Date Active allopurinol 300 mg tablet RxNorm: 892880 1 Tablet(s) PO QD 05/14/20 12 06/12/2012 Inactive allopurinol 300 mg tablet RxNorm: 788984 1 Tablet(s) PO QD 05/14/20 12 05/13/2012 Inactive amlodipine 5 mg tablet RxNorm: 361952 1 Tablet(s) PO QD 05/01/2012 Inactive amlodipine 5 mg Tab RxNorm: 615312 1 Tablet(s) PO QD 05/01/201204/30 Inactive Celebrex 200 mg capsule RxNorm: 310573 1 Capsule(s) PO QD for j oint pain 05/01/2012 06/25/2012 Inactive Singulair 10 mg tablet RxNorm: 878163 1 Tablet(s) PO QD 05/01/2012 Inactive alprazolam 0.5 mg tablet RxNorm: 570552 1 Tablet(s) PO BID 05/01/20 12 05/30/2012 Inactive prn Celebrex 200 mg Cap RxNorm: 025963 1 Capsule(s) PO QD for joint radu n 05/01/2012 04/30/2012 Inactive hydrocodone-acetaminophen 10 mg-325 mg tablet RxNorm: 432972 2 1-2 Tablet(s) PO QID as needed for severe pain 04/19/2012 No Stop Date Active Lasix 40 mg tablet RxNorm: 999958 1 Tablet(s) PO QAM s hould take potassium supplementation with this medication 04/05/2012 06/03/2012 Inactive alprazolam 0.5 mg Tab RxNorm: 004355 1 Tablet(s) PO BID 04/05/2012 Inactive prn hydrocodone-acetaminophen 10 mg-325 mg Tab RxNorm: 8606017 1-2 Tablet(s) PO QID as needed for severe pain 03/25/2012 03/24/2012 Inactive clonidine 0.2 mg Tab RxNorm: 062933 1 Tablet(s) PO TID 03/08/2012 Inactive alprazolam 0.5 mg Tab RxNorm: 228603 1 Tablet(s) PO BID 03/08/2012 Inactive prn Soma 350 mg tablet RxNorm: 813186 1 Tablet(s) PO TID for spasm 02/0903/18/2012 Inactive clonidine 0.2 mg tablet RxNorm: 537716 1 Tablet(s) PO TID 03/08/2012 07/28/2012 Inactive Celebrex 200 mg Cap RxNorm: 775627 1 Capsule(s) PO QD for joint radu n 03/01/2012 04/29/2012 Inactive amlodipine 5 mg Tab RxNorm: 799650 1 Tablet(s) PO QD 02/26/201202/24 Inactive amlodipine 5 mg Tab RxNorm: 743921 1 Tablet(s) PO QD 02/26/201204/25 Inactive Bactroban 2 % Ointment RxNorm: 209955 Application TOP QID to sores 02/23/2012 No Stop Date Active amlodipine 2.5 mg tablet RxNorm: 892981 1 Tablet(s) PO QHS 02/20/20 12 02/25/2012 Inactive doxycycline hyclate 100 mg Cap RxNorm: 9624192 1 Capsule(s) PO BID 02/20/2012 02/29/2012 Inactive hydrocodone-acetaminophen 10 mg-325 mg Tab RxNorm: 4090822 1-2 T ablet(s) PO QID 02/08/2012 No Stop Date Active alprazolam 0.5 mg Tab RxNorm: 457398 1 Tablet(s) PO BID 02/08/2012 Inactive prn Singulair 10 mg Tab RxNorm: 386420 1 Tablet(s) PO QD 02/08/201204/30 Inactive Soma 350 mg Tab RxNorm: 306095 1 Tablet(s) PO TID for spasm 012 03/07/2012 Inactive Soma 350 mg Tab RxNorm: 062986 1 Tablet(s) PO TID for spasm 012 02/05/2012 Inactive diclofenac sodium 75 mg tablet,delayed release RxNorm: 70879 8 1 Tablet(s) PO BID for pain 02/01/2012 03/18/2012 Inactive Celebrex 200 mg Cap RxNorm: 944660 1 Capsule(s) PO QD for joint radu n 01/30/2012 02/28/2012 Inactive Lasix 40 mg Tab RxNorm: 768279 1 Tablet(s) PO QAM 01/24/2012 03/18/20 12 Inactive potassium chloride ER 20 mEq tablet,extended release(part/cr yst) RxNorm: 110355 2 Tablet(s) PO BID 01/24/2012 02/22/2012 Inactive alprazolam 0.5 mg Tab RxNorm: 377463 1 Tablet(s) PO BID 01/11/2012 Inactive prn hydrocodone-acetaminophen 10 mg-325 mg Tab RxNorm: 6902751 1-2 T ablet(s) PO QID 01/11/2012 No Stop Date Active Ambien 10 mg Tab RxNorm: 085784 1 Tablet(s) PO QHS 01/11/2012 012 Inactive Klor-Con 8 mEq Tab RxNorm: 459131 1 Tablet(s) PO BID 01/11/201201/22 Inactive diclofenac sodium 75 mg Tab, Delayed Release RxNorm: 043732 1 Tablet(s) PO BID for pain 01/10/2012 01/31/2012 Inactive Ambien 10 mg Tab RxNorm: 809069 1 Tablet(s) PO QHS 12/11/2011 012 Inactive alprazolam 0.5 mg Tab RxNorm: 414517 1 Tablet(s) PO BID 12/11/2011 Inactive prn hydrocodone 10 mg-acetaminophen 325 mg tablet RxNorm: 022821 1-2 Tablet(s) PO TID 11/28/2011 No Stop Date Active as needed for pa in - Previous quantity #240, will start dosing for #180 in April 2011 per Doctor Appiah. Ambien 10 mg Tab RxNorm: 446091 1 Tablet(s) PO QHS 11/09/2011 012 Inactive alprazolam 0.5 mg Tab RxNorm: 136417 1 Tablet(s) PO BID 11/09/2011 Inactive prn hydrocodone-acetaminophen 10 mg-325 mg Tab RxNorm: 3151392 1-2 T ablet(s) PO TID 11/06/2011 No Stop Date Active as needed for pain - Previous quantity #240, will start dosing for #180 in April 2011 per Doctor Td. Singulair 10 mg Tab RxNorm: 794509 1 Tablet(s) PO QD 10/13/201110/12 Inactive Singulair 10 mg Tab RxNorm: 518691 1 Tablet(s) PO QD 10/13/201102/06 Inactive hydrocodone-acetaminophen 10 mg-325 mg Tab RxNorm: 9177860 1-2 T ablet(s) PO TID 10/10/2011 10/09/2011 Inactive as needed for pain - Previous quantity #240, will start dosing for #180 in April 2011 per Doctor Td. hydrocodone-acetaminophen 10 mg-325 mg Tab RxNorm: 5082875 1-2 T ablet(s) PO TID 10/09/2011 No Stop Date Active as needed for pain - Previous quantity #240, will start dosing for #180 in April 2011 per Doctor Td. Klor-Con 8 mEq Tab RxNorm: 123403 1 Tablet(s) PO BID 10/02/201101/09 Inactive triamterene 75 mg-hydrochlorothiazide 50 mg tablet RxNorm: 3 94907 1 Tablet(s) PO QD 09/14/2011 03/06/2013 Inactive Ambien 10 mg Tab RxNorm: 772494 1 Tablet(s) PO QHS 09/14/2011 012 Inactive hydrocodone-acetaminophen 10 mg-325 mg Tab RxNorm: 2911788 1-2 T ablet(s) PO TID 09/14/2011 No Stop Date Active as needed for pain - Previous quantity #240, will start dosing for #180 in April 2011 per Doctor Td. alprazolam 0.5 mg Tab RxNorm: 551852 1 Tablet(s) PO BID 09/14/2011 Inactive prn Zithromax 500 mg Tab RxNorm: 3403689 1 Tablet(s) PO QD 09/13/201106/2012 Inactive prednisone 20 mg Tab RxNorm: 312822 1 Tablet(s) PO BID 08/31/2011 Inactive Ambien 10 mg Tab RxNorm: 992746 1 Tablet(s) PO QHS 08/17/2011 011 Inactive hydrocodone-acetaminophen 10 mg-325 mg Tab RxNorm: 1407638 1-2 T ablet(s) PO TID 08/17/2011 No Stop Date Active as needed for pain - Previous quantity #240, will start dosing for #180 in April 2011 per Doctor Td. clonidine 0.2 mg Tab RxNorm: 968123 1 Tablet(s) PO TID 08/17/201112/2011 Inactive Ambien 10 mg Tab RxNorm: 967151 1 Tablet(s) PO QHS 08/17/2011 019 Inactive alprazolam 0.5 mg Tab RxNorm: 960526 1 Tablet(s) PO BID 08/17/2011 Inactive prn hydrocodone-acetaminophen 10 mg-325 mg Tab RxNorm: 9410591 1-2 T ablet(s) PO TID 08/17/2011 08/16/2011 Inactive as needed for pain - Previous quantity #240, will start dosing for #180 in April 2011 per Doctor Td. Singulair 10 mg Tab RxNorm: 234717 1 Tablet(s) PO QD 08/17/201108/16 Inactive Klor-Con 8 mEq Tab RxNorm: 932514 1 Tablet(s) PO QD 08/17/20112011 Inactive alprazolam 0.5 mg Tab RxNorm: 322580 1 Tablet(s) PO BID 07/20/2011 Inactive prn Ambien 10 mg Tab RxNorm: 875841 1 Tablet(s) PO QHS 07/20/2011 012 Inactive Singulair 10 mg Tab RxNorm: 075104 1 Tablet(s) PO QD 07/20/201107/19 Inactive Premarin 1.25 mg tablet RxNorm: 443029 2 Tablet(s) PO QD 07/20/2011 0 01/21/2019 Inactive Premarin 1.25 mg tablet RxNorm: 466946 1-2 Tablet(s) PO QD 07/20/20 11 12/16/2011 Inactive Premarin 1.25 mg Tab RxNorm: 873347 1-2 Tablet(s) PO QD 07/06/2011 Inactive alprazolam 0.5 mg Tab RxNorm: 217128 1 Tablet(s) PO BID 06/22/2011 Inactive prn alprazolam 0.5 mg Tab RxNorm: 633707 1 Tablet(s) PO BID 06/22/2011 Inactive prn Premarin 1.25 mg Tab RxNorm: 038070 1 Tablet(s) PO QD m ay do 90 day fill if desired 06/22/2011 07/05/2011 Inactive hydrocodone-acetaminophen 10 mg-325 mg Tab RxNorm: 0157138 1-2 T ablet(s) PO TID 06/22/2011 No Stop Date Active as needed for pain - Previous quantity #240, will start dosing for #180 in April 2011 per Doctor Td. clonidine 0.2 mg Tab RxNorm: 608265 1 Tablet(s) PO TID 05/25/201103/2011 Inactive triamterene-hydrochlorothiazide 75 mg-50 mg Tab RxNorm: 3108 18 1 Tablet(s) PO QD 05/25/2011 09/13/2011 Inactive alprazolam 0.5 mg Tab RxNorm: 106806 1 Tablet(s) PO BID 05/25/2011 Inactive prn hydrocodone-acetaminophen 10 mg-325 mg Tab RxNorm: 8341641 1-2 T ablet(s) PO TID 05/25/2011 No Stop Date Active as needed for pain - Previous quantity #240, will start dosing for #180 in April 2011 per Doctor Td. Robaxin-750 750 mg Tab RxNorm: 214079 2 Tablet(s) PO QHS 05/22/2011 1 Inactive prn spasm hydrocodone-acetaminophen 10 mg-325 mg Tab RxNorm: 3916854 1-2 T ablet(s) PO TID 04/26/2011 No Stop Date Active as needed for pain - Previous quantity #240, will start dosing for #180 in April 2011 per Doctor Td. alprazolam 0.5 mg Tab RxNorm: 259400 1 Tablet(s) PO BID 04/25/2011 Inactive prn Klor-Con 8 mEq Tab RxNorm: 223817 1 Tablet(s) PO QD 03/30/20112010 Inactive Klor-Con 8 mEq Tab RxNorm: 057484 1 Tablet(s) PO QD 03/29/20112010 Inactive hydrocodone-acetaminophen 10 mg-325 mg Tab RxNorm: 5801862 1-2 T ablet(s) PO TID 03/20/2011 04/25/2011 Inactive as needed for pain - Previous quantity #240, will start dosing for #180 in April 2011 per Doctor Td. alprazolam 0.5 mg Tab RxNorm: 124342 1 Tablet(s) PO BID prn 011 03/30/2011 Inactive Ambien 10 mg Tab RxNorm: 898808 1 Tablet(s) PO QHS 03/01/2011 011 Inactive cyclobenzaprine 10 mg Tab RxNorm: 781806 1 Tablet(s) PO TID 011 03/18/2012 Inactive cyclobenzaprine 10 mg Tab RxNorm: 921188 1 Tablet(s) PO TID 011 01/08/2011 Inactive cyclobenzaprine 10 mg Tab RxNorm: 996630 1 Tablet(s) PO TID 011 12/20/2010 Inactive terbinafine 250 mg Tab RxNorm: 245755 1 Tablet(s) PO QD 12/12/2010 Inactive triamterene-hydrochlorothiazide 75 mg-50 mg Tab RxNorm: 3108 18 1 Tablet(s) PO QD 12/07/2010 06/04/2011 Inactive Klor-Con 8 8 mEq Tab RxNorm: 839110 1 Tablet(s) PO QD 12/07/201001/08 Inactive Premarin 1.25 mg Tab RxNorm: 413892 2 Tablet(s) PO QD 12/07/201001/08 Inactive clonidine 0.2 mg Tab RxNorm: 183922 1 Tablet(s) PO TID 12/07/2010 Inactive hydrocodone-acetaminophen 7.5 mg-650 mg Tab RxNorm: 979264 1 Ta blet(s) PO Q4H 12/05/2010 01/21/2019 Inactive hydrocodone-acetaminophen 7.5 mg-650 mg Tab RxNorm: 198084 1 Ta blet(s) PO Q4H 10/26/2010 11/14/2010 Inactive hydrocodone-acetaminophen 7.5 mg-650 mg Tab RxNorm: 929015 1 Ta blet(s) PO Q4H 10/13/2010 10/25/2010 Inactive hydrocodone-acetaminophen 7.5 mg-650 mg Tab RxNorm: 125748 1 Ta blet(s) PO Q4H 09/15/2010 09/12/2010 Inactive alprazolam 0.5 mg Tab RxNorm: 683273 1 Tablet(s) PO BID prn 011 09/12/2010 Inactive terbinafine 250 mg Tab RxNorm: 204353 1 Tablet(s) PO QD 09/05/2010 Inactive hydrocodone-acetaminophen 7.5 mg-650 mg Tab RxNorm: 561691 1 Ta blet(s) PO Q4H 08/29/2010 09/17/2010 Inactive alprazolam 0.5 mg Tab RxNorm: 562631 1 Tablet(s) PO BID prn 010 09/27/2010 Inactive alprazolam 0.5 mg Tab RxNorm: 616060 1 Tablet(s) PO BID prn 010 09/06/2010 Inactive Klor-Con 8 mEq Tab RxNorm: 722577 1 Tablet(s) PO QD 08/08/20102010 Inactive hydrocodone-acetaminophen 7.5 mg-650 mg Tab RxNorm: 418800 1 Ta blet(s) PO Q4H 08/08/2010 08/27/2010 Inactive Ambien 10 mg Tab RxNorm: 782026 1 Tablet(s) PO QHS 08/08/2010 Inactive clonidine 0.2 mg Tab RxNorm: 553717 1 Tablet(s) PO TID 08/08/2010 Inactive Premarin 1.25 mg Tab RxNorm: 668775 2 Tablet(s) PO QD 08/08/201009/12 Inactive Ambien 10 mg Tab RxNorm: 304083 1 Tablet(s) PO QHS 07/18/2010 Inactive alprazolam 0.5 mg Tab RxNorm: 074645 1 Tablet(s) PO BID prn 010 08/07/2010 Inactive hydrocodone-acetaminophen 7.5 mg-650 mg Tab RxNorm: 698144 1 Ta blet(s) PO Q4H 07/12/2010 07/31/2010 Inactive clonidine 0.2 mg Tab RxNorm: 434375 1 Tablet(s) PO TID 06/20/2010 Inactive terbinafine 250 mg Tab RxNorm: 015323 1 Tablet(s) PO QD 05/24/2010 Inactive Clonidine 0.2 mg Tab RxNorm: 042627 1 Tablet(s) PO TID 05/24/201006/2010 Inactive Ambien 10 mg Tab RxNorm: 992303 1 Tablet(s) PO QHS 05/24/2010 010 Inactive alprazolam 0.5 mg Tab RxNorm: 991551 1 Tablet(s) PO BID 05/24/2010 Inactive Klor-Con 8 mEq Tab RxNorm: 676459 1 Tablet(s) PO QD 05/24/20102009 Inactive alprazolam 0.5 mg Tab RxNorm: 772600 2 Tablet(s) PO QD prn 05/24/20 10 07/17/2010 Inactive triamterene-hydrochlorothiazide 75 mg-50 mg Tab RxNorm: 3108 18 1 Tablet(s) PO QD 05/24/2010 11/19/2010 Inactive Ambien 10 mg Tab RxNorm: 948318 1 Tablet(s) PO QHS 05/23/2010 010 Inactive Alprazolam 0.5 mg Tab RxNorm: 318016 2 Tablet(s) PO QD prn 05/23/2005/23/2010 Inactive Premarin 1.25 mg Tab RxNorm: 299899 2 Tablet(s) PO QD 05/19/201007/12 Inactive Hydrocodone-Acetaminophen 7.5 mg-650 mg Tab RxNorm: 090670 1 Ta blet(s) PO Q4H 05/19/2010 03/20/2011 Inactive Prednisone 20 mg Tab RxNorm: 955908 1 Tablet(s) PO BID 05/17/2010 Inactive Prednisone 20 mg Tab RxNorm: 232788 1 Tablet(s) PO BID 05/06/201001/2010 Inactive Premarin 1.25 mg Tab RxNorm: 592587 Tablet(s) PO 2 M-W-F, and 1 Rr-Cq-Xug-Sun 05/05/2010 08/02/2010 Inactive Premarin 1.25 mg Tab RxNorm: 557299 Tablet(s) PO 2 M-W-F, and 1 Pw-Zr-Msb-Sun 05/04/2010 05/04/2010 Inactive Premarin 1.25 mg Tab RxNorm: 341402 Tablet(s) PO 2 M-W-F, and 1 Dm-Ad-Esm-Sun 05/04/2010 05/03/2010 Inactive Prednisone 20 mg Tab RxNorm: 271920 1 Tablet(s) PO BID 04/27/2010 Inactive Alprazolam 0.5 mg Tab RxNorm: 134192 2 Tablet(s) PO QD prn 04/26/20 10 05/22/2010 Inactive Clindamycin 300 mg Cap RxNorm: 276645 2 Capsule(s) PO TID 04/05/2010 04/18/2010 Inactive Terbinafine 250 mg Tab RxNorm: 113019 1 Tablet(s) PO QD 04/04/2010 Inactive Hydrocodone-Acetaminophen 7.5 mg-650 mg Tab RxNorm: 967081 1 Ta blet(s) PO Q4H 03/30/2010 04/18/2010 Inactive Avelox 400 mg Tab RxNorm: 671185 1 Tablet(s) PO QD 03/09/2010 010 Inactive Hydrocodone-Acetaminophen 7.5 mg-650 mg Tab RxNorm: 255789 1 Ta blet(s) PO Q4H 03/08/2010 03/27/2010 Inactive Alprazolam 0.5 mg Tab RxNorm: 796128 2 Tablet(s) PO QD prn 03/08/20 10 04/25/2010 Inactive Klor-Con 8 mEq Tab RxNorm: 279833 1 Tablet(s) PO QD when takes lasi x 03/07/2010 08/03/2010 Inactive Premarin 1.25 mg Tab RxNorm: 517950 1 Tablet(s) PO QD 03/03/201003/11 Inactive Alprazolam 0.5 mg Tab RxNorm: 411393 1 Tablet(s) PO BID PRN 010 No Stop Date Active triamterene-hydrochlorothiazide 75 mg-50 mg Tab RxNorm: 3108 18 1 Tablet(s) PO QD 02/09/2010 02/03/2011 Inactive Hydrocodone-Acetaminophen 10 mg-750 mg Tab RxNorm: 219928 1 Tablet(s) PO Q4H PRN 02/09/2010 03/20/2011 Inactive Clonidine 0.2 mg Tab RxNorm: 463380 1 Tablet(s) PO TID 01/13/201009/2009 Inactive Alprazolam 0.5 mg Tab RxNorm: 133427 1 Tablet(s) PO BID PRN 010 01/12/2010 Inactive Hydrocodone-Acetaminophen 10 mg-750 mg Tab RxNorm: 668257 1 Tablet(s) PO Q4H PRN 01/13/2010 01/12/2010 Inactive ANGELIQ 1 mg-0.5 mg Tab RxNorm: 2565471 1 Tablet(s) PO QD 12/27/2009 01/23/2010 Inactive Lasix 40 mg Tab RxNorm: 248835 1 Tablet(s) PO QAM 12/14/2009 06/11/20 10 Inactive Vitamin B12 1000mcg Tablet RxNorm: 1 Tablet(s) PO QD No Start Date Active cyclobenzaprine 10 mg tablet RxNorm: 882327 1 Tablet(s) PO TID as needed DO NOT USE WITH BACLOFEN No Start Date Active Vitamin D 5,000 unit Tab RxNorm: 1 Tablet(s) PO QD No Start Date Active vitamin E (dl, acetate) 400 unit Cap RxNorm: 937595 1 Capsule(s ) PO QD No Start Date Active Benadryl 25 mg Cap RxNorm: 9386140 Capsule(s) PO PRN No Start Date Inactive amitriptyline 100 mg tablet RxNorm: 580540 1 Tablet(s) PO QHS No St art Date 11/27/2016 Inactive Zithromax Z-Dustin 250 mg tablet RxNorm: 790858 Tablet(s) PO as di rected No Start Date 07/22/2013 Inactive Klor-Con 8 mEq tablet,extended release RxNorm: 686921 1 Tablet( s) PO BID No Start Date 07/28/2012 Inactive scopolamine 1.5 mg 72 hr Transderm Patch RxNorm: 799789 Application TD Q72H for motion sickness No Start Date 05/25/2013 Inactive Klonopin 1 mg tablet RxNorm: 892790 1-2 Tablet(s) PO QHS as nee ded for sleep No Start Date 06/20/2015 Inactive Klor-Con M20 mEq tablet,extended release RxNorm: 058324 2 Tablet(s) PO BID to use with lasix No Start Date 11/11/2013 Inactive Bystolic 5 mg tablet RxNorm: 160172 1 Tablet(s) PO QD No Start Date 1 Inactive Bystolic 10 mg tablet RxNorm: 420305 1 Tablet(s) PO BID No Start Da te 07/06/2015 Inactive Premarin 1.25 mg Tab RxNorm: 344770 Tablet(s) PO 2 -W-, and 1 Vz-Kg-Nlx-Sun No Start Date 05/03/2010 Inactive baclofen 20 mg tablet RxNorm: 868208 1 Tablet(s) PO TID as needed for muscle spasm No Start Date 07/22/2015 Inactive hydrocodone-acetaminophen 7.5 mg-650 mg Tab RxNorm: 399407 1 Tablet(s) PO Q4H as needed for pain No Start Date 03/20/2011 Inactive albuterol sulfate 1.25 mg/3 mL Neb Solution RxNorm: 005298 1 Unit Dose INH Q4H 2boxes No Start Date 09/06/2015 Inactive Butrans 20 mcg/hour Transderm Patch RxNorm: 471881 1 TD WEEKLY apply to skin weekly after removing previous. No Start Date 07/22/2013 Inactive Medrol (Dustin) 4 mg tablets in a dose pack RxNorm: 872851 Tablet(s) PO As Directed No Start Date 07/30/2016 Inactive hydrocodone-acetaminophen 10 mg-325 mg Tab RxNorm: 4715453 1-2 Tablet(s) PO TID as needed for pain No Start Date 03/19/2011 Inactive Klonopin 1 mg tablet RxNorm: 951556 1 Tablet(s) PO QHS No Start Date 02/28/2016 Inactive honey topical RxNorm: topical No Start Date 06/16/2018 Inactive Clonidine 0.2 mg Tab RxNorm: 021065 1 Tablet(s) PO TID No Start Date 01/12/2010 Inactive ketorolac 10 mg tablet RxNorm: 355138 1 Tablet(s) PO Q8H No Start D ate 03/18/2012 Inactive as needed for headache Singulair 10 mg Tab RxNorm: 920798 1 Tablet(s) PO QD No Start Date Inactive Premarin 1.25 mg Tab RxNorm: 519290 1 Tablet(s) PO QD No Start Date 1 Inactive Flonase 50 mcg/Actuation Nasal [place] RxNorm: 4152791 1 [place] CECELIA AL BID No Start Date 03/18/2012 Inactive Terbinafine 250 mg Tab RxNorm: 009359 1 Tablet(s) PO QD No Start Da te 04/03/2010 Inactive Fexofenadine 180 mg Tab RxNorm: 6527409 1 Tablet(s) PO QD No Start Date 09/06/2015 Inactive baclofen 20 mg tablet RxNorm: 119062 1 Tablet(s) PO TID as needed N o Start Date 05/25/2014 Inactive Diovan 160 mg Tab RxNorm: 068730 1 Tablet(s) PO QD No Start Date 09/12 Inactive mupirocin 2 % topical ointment RxNorm: 706492 1 Application TOP QID No Start Date 04/25/2016 Inactive ZOFRAN ODT 4 mg Tab, Rapid Dissolve RxNorm: 667933 1 Tablet(s) PO Q4H No Start Date 03/18/2012 Inactive as needed for nausea and vomiting Alprazolam 0.5 mg Tab RxNorm: 813661 1 Tablet(s) PO BID PRN No Star t Date 01/12/2010 Inactive cyclobenzaprine 10 mg tablet RxNorm: 373634 1 Tablet(s) PO TID as needed for muscle spasm No Start Date 10/08/2017 Inactive Albuterol 0.083% Aerosol Solution RxNorm: 1 Appl ication INH Q4H Use one ampule every 4 hrs with nebulizer as needed for shortness of breath. No Start Date 10/09/2010 Inactive lorazepam 1 mg tablet RxNorm: 922242 1 1/2 Tablet(s) PO QHS No Star t Date 02/02/2016 Inactive Melatonin 3 mg Tab RxNorm: 902467 Tablet(s) PO PRN No Start Date 07/11 Inactive Medrol (Dustin) 4 mg Tabs in a Dose Pack RxNorm: 088929 Tablet(s) PO N o Start Date 11/28/2010 Inactive lorazepam 1 mg tablet RxNorm: 714466 1 Tablet(s) PO QHS as need ed for sleep No Start Date 01/30/2016 Inactive hydrocodone-acetaminophen 10 mg-325 mg Tab RxNorm: 2702439 1-2 Tablet(s) PO QID as needed for severe pain No Start Date 03/24/2012 Inactive celecoxib 200 mg capsule RxNorm: 939912 1 Capsule(s) PO BID No Star t Date 06/26/2019 Inactive amlodipine 5 mg-benazepril 20 mg capsule RxNorm: 830954 1 Capsu le(s) PO QD No Start Date 04/10/2017 Inactive Bystolic 20 mg tablet RxNorm: 569175 1/2 Tablet(s) PO QAM No Start Date 01/23/2016 Inactive Bystolic 20 mg tablet RxNorm: 344717 1 Tablet(s) PO QAM No Start Da te 04/25/2016 Inactive Ambien 10 mg Tab RxNorm: 173844 1 Tablet(s) PO QHS No Start Date 05/11 Inactive Klor-Con 8 mEq Tab RxNorm: 322145 1 Tablet(s) PO QD when takes lasix No Start Date 03/06/2010 Inactive aspirin 81 mg tablet RxNorm: 076073 1 Tablet(s) PO QD No Start Date 0 01/29/2018 Inactive hydrocodone-acetaminophen 10 mg-325 mg Tab RxNorm: 8128656 1-2 T ablet(s) PO QID No Start Date 01/10/2012 Inactive Bystolic 10 mg tablet RxNorm: 670707 1 Tablet(s) PO QAM take one daily in the morning. No Start Date 05/28/2013 Inactive nystatin 100,000 unit/mL Oral Susp RxNorm: 473116 5 Milliliter( s) PO QID No Start Date 03/18/2012 Inactive swish and spit scopolamine 1.5 mg 72 hr Transderm Patch RxNorm: 907838 1 Unit Dose TD Q72H for motion sickness No Start Date 12/23/2013 Inactive Hydrocodone-Acetaminophen 10 mg-750 mg Tab RxNorm: 718434 1 Tablet(s) PO Q4H PRN No Start Date 01/12/2010 Inactive Soma 350 mg tablet RxNorm: 132677 1 Tablet(s) PO TID as needed for spasm No Start Date 01/12/2013 Inactive baclofen 10 mg tablet RxNorm: 644494 1 Tablet(s) PO TID as needed for muscle spasm No Start Date 09/18/2019 Inactive Soma 350 mg Tab RxNorm: 977394 1 Tablet(s) PO TID for spasm No Star t Date 01/31/2012 Inactive Co Q-10 400 mg capsule RxNorm: 325983 1 Capsule(s) PO QD No Start D ate 01/21/2019 Inactive nystatin 100,000 unit/gram topical cream RxNorm: 695370 Applica tion TOP BID No Start Date 03/22/2015 Inactive Exforge 5 mg-160 mg Tab RxNorm: 800325 1 Tablet(s) PO QD No Start D ate 10/09/2010 Inactive Hydrocodone-Acetaminophen 7.5 mg-650 mg Tab RxNorm: 198669 1 Ta blet(s) PO Q4H No Start Date 03/07/2010 Inactive Robaxin-750 750 mg Tab RxNorm: 022204 1-2 Tablet(s) PO TID prn spasm No Start Date 05/21/2011 Inactive amlodipine 5 mg tablet RxNorm: 880470 1 Tablet(s) PO QHS No Start D ate 09/29/2015 Inactive oxycodone-acetaminophen 10 mg-325 mg tablet RxNorm: 5793610 1-2 Tablet(s) PO Q6H No Start Date 06/16/2018 Inactive Triamterene-Hydrochlorothiazide 75 mg-50 mg Tab RxNorm: 3108 18 1 Tablet(s) PO QD No Start Date 02/08/2010 Inactive Alprazolam 0.5 mg Tab RxNorm: 841061 2 Tablet(s) PO QD prn No Start Date 03/07/2010 Inactive Bystolic 20 mg tablet RxNorm: 863619 1 Tablet(s) PO QAM No Start Da te 08/17/2015 Inactive ketorolac 10 mg tablet RxNorm: 924152 1 Tablet(s) PO QID prn he adache No Start Date 07/17/2012 Inactive acyclovir 800 mg Tab RxNorm: 048055 1 Tablet(s) PO BID No Start Date 03/18/2012 Inactive duloxetine 60 mg capsule,delayed release RxNorm: 795023 1 Capsu le(s) PO QD No Start Date 09/29/2015 Inactive Norvasc 5 mg tablet RxNorm: 587148 1 Tablet(s) PO QHS No Start Date 1 10/18/2014 Inactive promethazine 25 mg tablet RxNorm: 366725 1 Tablet(s) PO Q8H use sparingly No Start Date 07/22/2013 Inactive alprazolam 0.5 mg tablet RxNorm: 035330 3 Tablet(s) PO QHS No Start Date 06/06/2015 Inactive Lunesta 3 mg tablet RxNorm: 506764 1 Tablet(s) PO QHS No Start Date 0 09/20/2017 Inactive hydrocodone-acetaminophen 10 mg-325 mg Tab RxNorm: 9816895 1-2 Tablet(s) PO TID as needed for pain No Start Date 12/10/2011 Inactive Coricidin HBP Cough & Cold 4 mg-30 mg Tab RxNorm: 7242094 Tablet (s) PO PRN No Start Date 10/09/2010 Inactive Bactroban 2 % Ointment RxNorm: 456187 Application TOP QID to so res No Start Date 02/22/2012 Inactive Flonase 50 mcg/actuation Nasal [place] RxNorm: 582094 2 [place] QHS No Start Date 03/03/2014 Inactive Medication Administered No Medication Administered data Immunizations Vaccine Codes Date Status Tetanus, Diptheria, Pertussis CVX: 115 02/27/2014 Results Observation Observation Code Item Item Code Result Date S [facility] Location COMPLETE BLOOD COUNT [id number] WBC 10.7 10e9/L 018 Unknown COMPLETE BLOOD COUNT 4860037 RBC 4.59 10e12/L 2017 Unknown COMPLETE BLOOD COUNT 1207046 HEMOGLOBIN 14.8 g/dL 12/11/19 18 Unknown COMPLETE BLOOD COUNT 6304590 HEMATOCRIT 44.9 % 12/11/19 18 Unknown COMPLETE BLOOD COUNT 8106844 MCV 97.8 fL 8 Unknown COMPLETE BLOOD COUNT 0048183 MCH 32.2 pg 8 Unknown COMPLETE BLOOD COUNT 9276425 MCHC 33.0 g/dL 8 Unknown COMPLETE BLOOD COUNT 1660410 PLATELET COUNT 261 10e9/L 10/2017 Unknown COMPLETE BLOOD COUNT 6509216 Mean Plt Volume 9.5 fL 10/2017 Unknown COMPLETE BLOOD COUNT 1142348 Neut Auto 59.9 % 8 Unknown COMPLETE BLOOD COUNT 3570421 Lymph Auto 27.4 % 12/11/19 18 Unknown COMPLETE BLOOD COUNT 3263740 [place] Auto 8.2 % 8 Unknown COMPLETE BLOOD COUNT 2799058 RDW 13.3 % 8 Unknown COMPLETE BLOOD COUNT 0684989 Eos Auto 4.1 % 8 Unknown COMPLETE BLOOD COUNT 1993452 Baso Auto 0.4 % 8 Unknown COMPLETE BLOOD COUNT 2730654 Neutrophil Abs 6.41 10e9/L Unknown COMPLETE BLOOD COUNT 8555348 Lymphocyte Abs 2.93 10e9/L Unknown COMPLETE BLOOD COUNT 9200503 Monocyte Abs 0.88 10e9/L 10/2017 Unknown COMPLETE BLOOD COUNT [id number] Eosinophil Abs 0.44 10e9/L Unknown COMPLETE BLOOD COUNT 9510154 RDW-SD 46.2 fL 8 Unknown COMPLETE BLOOD COUNT [id number] Basophil Abs 0.04 10e9/L 10/2017 Unknown THYROID STIMULATING HORMONE 70429 TSH 4.015 uIU/mL 12/10/2017 Unknown COMPREHENSIVE METABOLIC 07461 AST 25 U/L 2017 Unknown COMPREHENSIVE METABOLIC 34545 ALT 17 U/L 2017 Unknown COMPREHENSIVE METABOLIC 33610 BUN 19 mg/dL 2017 Unknown COMPREHENSIVE METABOLIC 61678 ALBUMIN 4.0 g/dL 2017 Unknown COMPREHENSIVE METABOLIC 34654 CHLORIDE 91 mmol/L 2017 Unknown COMPREHENSIVE METABOLIC 89203 Bili Total 0.5 mg/dL 12/10 Unknown COMPREHENSIVE METABOLIC 79280 ALK PHOS 75 U/L 2017 Unknown COMPREHENSIVE METABOLIC 15089 SODIUM 136 mmol/L 12/10 Unknown COMPREHENSIVE METABOLIC 22697 CREATININE 1.05 mg/dL 10/2017 Unknown COMPREHENSIVE METABOLIC 08192 CALCIUM 8.9 mg/dL 2017 Unknown COMPREHENSIVE METABOLIC 68512 POTASSIUM 3.4 mmol/L 12/10 Unknown COMPREHENSIVE METABOLIC 76344 Total Protein 6.5 g/dL Unknown COMPREHENSIVE METABOLIC 60362 Glucose 138 mg/dL 2017 Unknown COMPREHENSIVE METABOLIC 76898 Bicarbonate 35 mmol/L 10/2017 Unknown COMPREHENSIVE METABOLIC 49069 AGAP 10 mmol/L 2017 Unknown MEAN GLUC 8495023 Calc Mean Gluc 171 mg/dL 12/10/2017 Unkn own LIPID GROUP 02860 Cholesterol 204 mg/dL 12/10/2017 Unkno wn LIPID GROUP 72710 Triglyceride 411 mg/dL 12/10/2017 Unkn own LIPID GROUP 17205 HDL CHOLESTEROL 50 mg/dL 12/10/2017 U nknown LIPID GROUP 93238 Chol/HDL Ratio 4.08 ratio 12/10/2017 U nknown LIPID GROUP 71064 NON-HDL Chol 154 mg/dL 12/10/2017 Unkn own LIPID GROUP 47782 LDL Cholesterol N/A Trig >400 018 Unknown GLYCOSYLATED HEMOGLOBIN TEST 42624 Hgb A1c 16749-1 7.6 % 0 12/10/2017 Unknown FREE T4 09468 T4 Free 1.40 ng/dL 12/10/2017 Unknown GFR CALC 9234497 GFR Non Afr Amr 55 mL/min 12/10/2017 Unk nown GFR CALC 3790559 GFR Afr Amr >60 mL/min 12/10/2017 Unknow n GFR CALC 3427102 GFR Non Afr Amr 48 mL/min 06/28/2017 Unk nown GFR CALC 1271002 GFR Afr Amr 59 mL/min 06/28/2017 Unknown COMPREHENSIVE METABOLIC 11249 AST 32 U/L 2016 Unknown COMPREHENSIVE METABOLIC 43160 ALT 22 U/L 2016 Unknown COMPREHENSIVE METABOLIC 35773 BUN 23 mg/dL 2016 Unknown COMPREHENSIVE METABOLIC 68197 ALBUMIN 4.7 g/dL 2016 Unknown COMPREHENSIVE METABOLIC 02689 CHLORIDE 89 mmol/L 2016 Unknown COMPREHENSIVE METABOLIC 57804 Bili Total 0.5 mg/dL 06/28 Unknown COMPREHENSIVE METABOLIC 84489 ALK PHOS 90 U/L 2016 Unknown COMPREHENSIVE METABOLIC 37766 SODIUM 135 mmol/L 06/28 Unknown COMPREHENSIVE METABOLIC 69083 CREATININE 1.18 mg/dL 06/10 Unknown COMPREHENSIVE METABOLIC 80283 CALCIUM 9.7 mg/dL 2016 Unknown COMPREHENSIVE METABOLIC 63524 POTASSIUM 3.5 mmol/L 06/28 Unknown COMPREHENSIVE METABOLIC 49516 Total Protein 7.7 g/dL Unknown COMPREHENSIVE METABOLIC 16069 Glucose 129 mg/dL 2016 Unknown COMPREHENSIVE METABOLIC 72374 Bicarbonate 34 mmol/L 06/10 Unknown COMPREHENSIVE METABOLIC 12639 AGAP 12 mmol/L 2016 Unknown LIPID GROUP 54832 HDL TEST 64 MG/DL 08/27/2014 Unknown LIPID GROUP 50558 TRIG 222 MG/DL 08/27/2014 Unknown LIPID GROUP 34168 TEST LDL 209 MG/DL 08/27/2014 Unknown LIPID GROUP 30675 CHOL 317 MG/DL 08/27/2014 Unknown LIPID GROUP 66241 RCHOL/HDL 4.95 RATIO 08/27/2014 Unknow n LIPID GROUP 79778 NON-HDL CH 253 MG/DL 08/27/2014 Unknow n GFR CALC 1331455 GFR AA >60 ML/MIN 08/27/2014 Unknown GFR CALC 2209528 GFR NON-AA >60 ML/MIN 08/27/2014 Unknown COMPLETE BLOOD COUNT 6439690 WBC 7.0 10e9/L 08/27/20 14 Unknown COMPLETE BLOOD COUNT 6321651 RBC 4.98 10e12/L 2013 Unknown COMPLETE BLOOD COUNT 5814814 HGB 15.6 g/dL 4 Unknown COMPLETE BLOOD COUNT 1607035 HCT DET 46.5 % 4 Unknown COMPLETE BLOOD COUNT 8193767 MCV 93.4 fL 4 Unknown COMPLETE BLOOD COUNT 2523048 MCH 31.3 pg 4 Unknown COMPLETE BLOOD COUNT 2212308 MCHC 33.5 g/dL 4 Unknown COMPLETE BLOOD COUNT 1170173 PLT 309 10e9/L 08/27/20 14 Unknown COMPLETE BLOOD COUNT 9339636 MPV 9.6 fL 4 Unknown COMPLETE BLOOD COUNT 0667952 CADEN % 57.2 % 4 Unknown COMPLETE BLOOD COUNT 6984985 LY % 33.2 % 4 Unknown COMPLETE BLOOD COUNT 4316158 MON % 7.3 % 4 Unknown COMPLETE BLOOD COUNT 5675932 EOS % 2.0 % 4 Unknown COMPLETE BLOOD COUNT 4868341 BASO % 0.3 % 4 Unknown COMPLETE BLOOD COUNT 5471683 RDW 13.7 % 4 Unknown COMPLETE BLOOD COUNT 6067357 ABS CADEN 4.00 10e9/L 014 Unknown COMPLETE BLOOD COUNT 7729922 ABS LYMPH 2.32 10e9/L 014 Unknown COMPLETE BLOOD COUNT 0764072 ABS MONO 0.51 10e9/L 014 Unknown COMPLETE BLOOD COUNT 6445820 ABS EOS 0.14 10e9/L 014 Unknown COMPLETE BLOOD COUNT 2003066 ABS BASO 0.02 10e9/L 014 Unknown COMPLETE BLOOD COUNT 5933243 RDW-SD 45.1 fL 4 Unknown COMPREHENSIVE METABOLIC 45163 AST 13 U/L 2013 Unknown COMPREHENSIVE METABOLIC 98683 ALT 11 IU/L 2013 Unknown COMPREHENSIVE METABOLIC 47326 BUN 23 MG/DL 2013 Unknown COMPREHENSIVE METABOLIC 29094 ALBUMIN 4.4 GM/DL 2013 Unknown COMPREHENSIVE METABOLIC 77869 CHLORIDE 99 MMOL/L 2013 Unknown COMPREHENSIVE METABOLIC 17178 BILI TOT 0.5 MG/DL 2013 Unknown COMPREHENSIVE METABOLIC 64574 ALK PHOS 56 U/L 2013 Unknown COMPREHENSIVE METABOLIC 57915 SODIUM 138 MMOL/L 08/27 Unknown COMPREHENSIVE METABOLIC 56949 CREATININE 0.95 MG/DL 08/10 Unknown COMPREHENSIVE METABOLIC 54838 CALCIUM 9.8 MG/DL 2013 Unknown COMPREHENSIVE METABOLIC 01985 POTASSIUM 3.5 MMOL/L 08/27 Unknown COMPREHENSIVE METABOLIC 95389 PROT TOT 6.8 GM/DL 2013 Unknown COMPREHENSIVE METABOLIC 17855 Glucose 90 MG/DL 2013 Unknown COMPREHENSIVE METABOLIC 21864 BICARB 34 MMOL/L 2013 Unknown COMPREHENSIVE METABOLIC 87378 ANION GAP 5 MEQ/L 2013 Unknown LIPASE 60762 LIPASE 11 IU/L 07/21/2014 Unknown AMYLASE 57701 AMYLASE 39 IU/L 07/21/2014 Unknown HEMOGLOBIN A1C (GLYCOSYLATED) 8688429 A1C [facility] 72877-0 6.2 % 03/05/2013 Unknown THYROID STIMULATING HORMONE 19425 TSH 6.986 uIU/ML 03/05/2013 Unknown COMPLETE BLOOD COUNT 2622568 WBC 12.7 10e9/L 013 Unknown COMPLETE BLOOD COUNT 8788955 RBC 4.53 10e12/L 2012 Unknown COMPLETE BLOOD COUNT 8770439 HGB 14.7 g/dL 3 Unknown COMPLETE BLOOD COUNT 6283928 HCT DET 43.1 % 3 Unknown COMPLETE BLOOD COUNT 5874593 MCV 95.1 fL 3 Unknown COMPLETE BLOOD COUNT 9457160 MCH 32.5 pg 3 Unknown COMPLETE BLOOD COUNT 3335530 MCHC 34.1 g/dL 3 Unknown COMPLETE BLOOD COUNT 4560965 PLT 346 10e9/L 03/05/20 13 Unknown COMPLETE BLOOD COUNT 8783266 MPV 9.5 fL 3 Unknown COMPLETE BLOOD COUNT 1978830 CADEN % 67.6 % 3 Unknown COMPLETE BLOOD COUNT 3919089 LY % 22.1 % 3 Unknown COMPLETE BLOOD COUNT [id number] MON % 6.6 % 3 Unknown COMPLETE BLOOD COUNT 9716577 EOS % 3.3 % 3 Unknown COMPLETE BLOOD COUNT 6611185 BASO % 0.4 % 3 Unknown COMPLETE BLOOD COUNT 0817586 RDW 14.0 % 3 Unknown COMPLETE BLOOD COUNT 2396684 ABS CADEN 8.59 10e9/L 013 Unknown COMPLETE BLOOD COUNT 1165474 ABS LYMPH 2.81 10e9/L 013 Unknown COMPLETE BLOOD COUNT 1909576 ABS MONO 0.84 10e9/L 013 Unknown COMPLETE BLOOD COUNT 7533089 ABS EOS 0.42 10e9/L 013 Unknown COMPLETE BLOOD COUNT 0932681 ABS BASO 0.05 10e9/L 013 Unknown COMPLETE BLOOD COUNT 2931338 RDW-SD 46.0 fL 3 Unknown FREE T4 48777 FREE T4 1.14 NG/DL 03/05/2013 Unknown COMPREHENSIVE METABOLIC 34126 AST 17 U/L 2012 Unknown COMPREHENSIVE METABOLIC 37653 ALT 12 IU/L 2012 Unknown COMPREHENSIVE METABOLIC 34986 BUN 24 MG/DL 2012 Unknown COMPREHENSIVE METABOLIC 20173 ALBUMIN 4.2 GM/DL 2012 Unknown COMPREHENSIVE METABOLIC 60181 CHLORIDE 93 MMOL/L 2012 Unknown COMPREHENSIVE METABOLIC 94248 BILI TOT 0.5 MG/DL 2012 Unknown COMPREHENSIVE METABOLIC 81234 ALK PHOS 75 U/L 2012 Unknown COMPREHENSIVE METABOLIC 84740 SODIUM 141 MMOL/L 03/05 Unknown COMPREHENSIVE METABOLIC 88552 CREATININE 1.36 MG/DL 02/09 Unknown COMPREHENSIVE METABOLIC 19994 CALCIUM 9.2 MG/DL 2012 Unknown COMPREHENSIVE METABOLIC 87315 POTASSIUM 3.1 MMOL/L 03/05 Unknown COMPREHENSIVE METABOLIC 47409 PROT TOT 6.9 GM/DL 2012 Unknown COMPREHENSIVE METABOLIC 73609 Glucose 123 MG/DL 2012 Unknown COMPREHENSIVE METABOLIC 51187 BICARB 36 MMOL/L 2012 Unknown COMPREHENSIVE METABOLIC 89665 ANION GAP 12 MEQ/L 2012 Unknown GFR CALC 5838841 GFR AA 51.0L ML/MIN 03/05/2013 Unknow n GFR CALC 6675815 GFR NON-AA 42.0L ML/MIN 03/05/2013 Unkno wn COMPREHENSIVE METABOLIC 09100 AST 14 U/L 2012 Unknown COMPREHENSIVE METABOLIC 20988 ALT 11 IU/L 2012 Unknown COMPREHENSIVE METABOLIC 54575 BUN 16 MG/DL 2012 Unknown COMPREHENSIVE METABOLIC 74807 ALBUMIN 4.2 GM/DL 2012 Unknown COMPREHENSIVE METABOLIC 03951 CHLORIDE 98 MMOL/L 2012 Unknown COMPREHENSIVE METABOLIC 90603 BILI TOT 0.4 MG/DL 2012 Unknown COMPREHENSIVE METABOLIC 71330 ALK PHOS 77 U/L 2012 Unknown COMPREHENSIVE METABOLIC 11793 SODIUM 139 MMOL/L 09/25 Unknown COMPREHENSIVE METABOLIC 33529 CREATININE 0.86 MG/DL 09/10 Unknown COMPREHENSIVE METABOLIC 34003 CALCIUM 9.5 MG/DL 2012 Unknown COMPREHENSIVE METABOLIC 83284 POTASSIUM 3.8 MMOL/L 09/25 Unknown COMPREHENSIVE METABOLIC 07907 PROT TOT 6.8 GM/DL 2012 Unknown COMPREHENSIVE METABOLIC 87214 Glucose 91 MG/DL 2012 Unknown COMPREHENSIVE METABOLIC 15362 BICARB 32 MMOL/L 2012 Unknown COMPREHENSIVE METABOLIC 05115 ANION GAP 9 MEQ/L 2012 Unknown FREE T4 44637 FREE T4 0.98 NG/DL 09/25/2012 Unknown THYROID STIMULATING HORMONE 14980 TSH 1.736 uIU/ML 09/25/2012 Unknown C-REACTIVE PROTEIN (CRP) QUANT 85322 CRP 2.3 MG/DL 09/25/2012 Unknown COMPLETE BLOOD COUNT [id number] WBC 11.9 10e9/L 013 Unknown COMPLETE BLOOD COUNT [id number] RBC 4.87 10e12/L 2012 Unknown COMPLETE BLOOD COUNT 1282815 HGB 15.1 g/dL 3 Unknown COMPLETE BLOOD COUNT 8428182 HCT DET 44.8 % 3 Unknown COMPLETE BLOOD COUNT 0628001 MCV 92.0 fL 3 Unknown COMPLETE BLOOD COUNT 7904518 MCH 31.0 pg 3 Unknown COMPLETE BLOOD COUNT 5557649 MCHC 33.7 g/dL 3 Unknown COMPLETE BLOOD COUNT 0498462 PLT 343 10e9/L 09/25/19 13 Unknown COMPLETE BLOOD COUNT 9126984 MPV 9.0 fL 3 Unknown COMPLETE BLOOD COUNT 0296910 CADEN % 68.2 % 3 Unknown COMPLETE BLOOD COUNT 7558335 LY % 22.4 % 3 Unknown COMPLETE BLOOD COUNT 5813521 MON % 6.4 % 3 Unknown COMPLETE BLOOD COUNT 4679627 EOS % 2.7 % 3 Unknown COMPLETE BLOOD COUNT 1199888 BASO % 0.3 % 3 Unknown COMPLETE BLOOD COUNT 3831062 RDW 13.8 % 3 Unknown COMPLETE BLOOD COUNT 1171259 ABS CADEN 8.12 10e9/L 013 Unknown COMPLETE BLOOD COUNT 0229136 ABS LYMPH 2.67 10e9/L 013 Unknown COMPLETE BLOOD COUNT 1663048 ABS MONO 0.76 10e9/L 013 Unknown COMPLETE BLOOD COUNT [id number] ABS EOS 0.32 10e9/L 013 Unknown COMPLETE BLOOD COUNT 9621961 ABS BASO 0.04 10e9/L 013 Unknown COMPLETE BLOOD COUNT 0873528 RDW-SD 45.6 fL 3 Unknown GFR CALC 2202306 GFR AA >60 ML/MIN 09/25/2012 Unknown GFR CALC 4137637 GFR NON-AA >60 ML/MIN 09/25/2012 Unknown ERYTHROCYTE SEDIMENTATION RATE 53114 ESR 19 MM/HR 05/06/2012 Unknown VITAMIN B 12 FOLIC ACID 11936|60484 VIT B 12 922 PG/ML 04/11 Unknown VITAMIN B 12 FOLIC ACID 06953|81764 FOLIC ACID 13.6 NG/ML Unknown URIC ACID 84903 URIC ACID 7.8 MG/DL 05/06/2012 Unknown COMPLETE BLOOD COUNT 68458 WBC 11.9 10e9/L 012 Unknown COMPLETE BLOOD COUNT 06581 RBC 5.30 10e12/L 2011 Unknown COMPLETE BLOOD COUNT 00706 HGB 16.6 g/dL 2 Unknown COMPLETE BLOOD COUNT 94684 HCT DET 47.2 % 2 Unknown COMPLETE BLOOD COUNT 28056 MCV 89.1 fL 2 Unknown COMPLETE BLOOD COUNT 41367 MCH 31.3 pg 2 Unknown COMPLETE BLOOD COUNT 84902 MCHC 35.2 g/dL 2 Unknown COMPLETE BLOOD COUNT 65936 PLT 362 10e9/L 05/06/20 12 Unknown COMPLETE BLOOD COUNT 77087 MPV 9.4 fL 2 Unknown COMPLETE BLOOD COUNT 36924 CADEN % 68.2 % 2 Unknown COMPLETE BLOOD COUNT 30916 LY % 22.0 % 2 Unknown COMPLETE BLOOD COUNT 20120 MON % 6.9 % 2 Unknown COMPLETE BLOOD COUNT 97083 EOS % 2.6 % 2 Unknown COMPLETE BLOOD COUNT 39091 BASO % 0.3 % 2 Unknown COMPLETE BLOOD COUNT 37302 RDW 12.8 % 2 Unknown COMPLETE BLOOD COUNT 97579 ABS CADEN 8.12 10e9/L 012 Unknown COMPLETE BLOOD COUNT 22423 ABS LYMPH 2.62 10e9/L 012 Unknown COMPLETE BLOOD COUNT 69364 ABS MONO 0.82 10e9/L 012 Unknown COMPLETE BLOOD COUNT 09011 ABS EOS 0.31 10e9/L 08/27/2 012 Unknown COMPLETE BLOOD COUNT 48398 ABS BASO 0.04 10e9/L 012 Unknown COMPLETE BLOOD COUNT 03979 RDW-SD 41.5 fL 2 Unknown GFR CALC 0428422 GFR AA >60 ML/MIN 05/06/2012 Unknown GFR CALC 6747133 GFR NON-AA 58.0L ML/MIN 05/06/2012 Unkno wn FREE T4 20774 FREE T4 1.15 NG/DL 05/06/2012 Unknown THYROID STIMULATING HORMONE 00385 TSH 1.568 uIU/ML 05/06/2012 Unknown COMPREHENSIVE METABOLIC 82102 AST 20 U/L 2011 Unknown COMPREHENSIVE METABOLIC 22097 ALT 12 IU/L 2011 Unknown COMPREHENSIVE METABOLIC 63383 BUN 20 MG/DL 2011 Unknown COMPREHENSIVE METABOLIC 97164 ALBUMIN 4.5 GM/DL 2011 Unknown COMPREHENSIVE METABOLIC 09487 CHLORIDE 91 MMOL/L 2011 Unknown COMPREHENSIVE METABOLIC 33323 BILI TOT 0.4 MG/DL 2011 Unknown COMPREHENSIVE METABOLIC 43596 ALK PHOS 73 U/L 2011 Unknown COMPREHENSIVE METABOLIC 82150 SODIUM 139 MMOL/L 05/06 Unknown COMPREHENSIVE METABOLIC 84896 CREATININE 1.02 MG/DL 04/11 Unknown COMPREHENSIVE METABOLIC 51217 CALCIUM 9.7 MG/DL 2011 Unknown COMPREHENSIVE METABOLIC 32623 POTASSIUM 3.1 MMOL/L 05/06 Unknown COMPREHENSIVE METABOLIC 10209 PROT TOT 7.3 GM/DL 2011 Unknown COMPREHENSIVE METABOLIC 41506 Glucose 118 MG/DL 2011 Unknown COMPREHENSIVE METABOLIC 80694 BICARB 33 MMOL/L 2011 Unknown COMPREHENSIVE METABOLIC 24534 ANION GAP 15 MEQ/L 2011 Unknown Procedures Procedure Codes Date ROUTINE VENIPUNCTURE CPT-4: 93458 09/29/2019 URINALYSIS NONAUTO W/O SCOPE CPT-4: 55310 09/29/2019 COMPREHEN METABOLIC PANEL CPT-4: 44255 09/29/2019 LIPID PANEL CPT-4: 56212 09/29/2019 A1C HPLC CPT-4: 02163 09/29/2019 ASSAY OF FREE THYROXINE CPT-4: 48354 09/29/2019 ASSAY THYROID STIM HORMONE CPT-4: 59448 09/29/2019 COMPLETE CBC W/AUTO DIFF WBC CPT-4: 48018 09/29/2019 URINALYSIS NONAUTO W/O SCOPE CPT-4: 14029 09/30/2018 MICROALBUMIN QUANTITATIVE CPT-4: 14028 09/30/2018 CEFTRIAXONE SODIUM INJECTION CPT-4: J0696 06/19/2018 THER/PROPH/DIAG INJ SC/IM CPT-4: 34790 06/19/2018 CEFTRIAXONE SODIUM INJECTION CPT-4: J0696 06/17/2018 THER/PROPH/DIAG INJ SC/IM CPT-4: 50299 06/17/2018 THER/PROPH/DIAG INJ SC/IM CPT-4: 14816 05/16/2018 KETOROLAC TROMETHAMINE INJ CPT-4: J1885 05/16/2018 ONDANSETRON HCL INJECTION CPT-4: J2405 05/16/2018 THER/PROPH/DIAG INJ SC/IM CPT-4: 03706 05/16/2018 ROUTINE VENIPUNCTURE CPT-4: 79129 03/20/2018 COMPREHEN METABOLIC PANEL CPT-4: 54109 03/20/2018 DEXAMETHASONE SODIUM PHOS CPT-4: J1100 02/11/2018 THER/PROPH/DIAG INJ SC/IM CPT-4: 70995 02/11/2018 TRIAMCINOLONE ACET INJ NOS CPT-4: J3301 02/11/2018 CEFTRIAXONE SODIUM INJECTION CPT-4: J0696 02/01/2018 THER/PROPH/DIAG INJ SC/IM CPT-4: 99611 02/01/2018 CEFTRIAXONE SODIUM INJECTION CPT-4: J0696 01/30/2018 THER/PROPH/DIAG INJ SC/IM CPT-4: 64962 01/30/2018 ROUTINE VENIPUNCTURE CPT-4: 74591 12/10/2017 ASSAY OF FREE THYROXINE CPT-4: 99590 12/10/2017 ASSAY THYROID STIM HORMONE CPT-4: 16372 12/10/2017 COMPREHEN METABOLIC PANEL CPT-4: 10400 12/10/2017 COMPLETE CBC W/AUTO DIFF WBC CPT-4: 80743 12/10/2017 LIPID PANEL CPT-4: 77651 12/10/2017 A1C HPLC CPT-4: 65828 12/10/2017 CEFTRIAXONE SODIUM INJECTION CPT-4: J0696 12/10/2017 THER/PROPH/DIAG INJ SC/IM CPT-4: 01362 12/10/2017 CEFTRIAXONE SODIUM INJECTION CPT-4: J0696 12/07/2017 THER/PROPH/DIAG INJ SC/IM CPT-4: 35288 12/07/2017 DEXAMETHASONE SODIUM PHOS CPT-4: J1100 12/07/2017 THER/PROPH/DIAG INJ SC/IM CPT-4: 31530 12/07/2017 CEFTRIAXONE SODIUM INJECTION CPT-4: J0696 10/08/2017 THER/PROPH/DIAG INJ SC/IM CPT-4: 47089 10/08/2017 CEFTRIAXONE SODIUM INJECTION CPT-4: J0696 09/21/2017 THER/PROPH/DIAG INJ SC/IM CPT-4: 36473 09/21/2017 CEFTRIAXONE SODIUM INJECTION CPT-4: J0696 09/20/2017 THER/PROPH/DIAG INJ SC/IM CPT-4: 18787 09/20/2017 REMOVAL OF NAIL PLATE CPT-4: 67964 08/29/2017 THER/PROPH/DIAG INJ SC/IM CPT-4: 32822 08/29/2017 TRIAMCINOLONE ACET INJ NOS CPT-4: J3301 08/29/2017 CEFTRIAXONE SODIUM INJECTION CPT-4: J0696 08/29/2017 THER/PROPH/DIAG INJ SC/IM CPT-4: 87845 08/29/2017 DESTRUCT PREMALG LESION (Cryosurgery) CPT-4: 93721 ROUTINE VENIPUNCTURE CPT-4: 78402 06/27/2017 ASSAY OF FREE THYROXINE CPT-4: 41878 06/27/2017 ASSAY THYROID STIM HORMONE CPT-4: 77440 06/27/2017 COMPREHEN METABOLIC PANEL CPT-4: 41118 06/27/2017 COMPLETE CBC W/AUTO DIFF WBC CPT-4: 92831 06/27/2017 EXC TR-EXT B9+REECE 0.5 CM< CPT-4: 30785 01/24/2017 THER/PROPH/DIAG INJ SC/IM CPT-4: 56308 08/02/2016 DEXAMETHASONE SODIUM PHOS CPT-4: J1100 08/02/2016 DESTRUCT PREMALG LESION (Cryosurgery) CPT-4: 99972 EXC TR-EXT B9+REECE 0.5 CM< CPT-4: 51631 08/01/2016 AEROBIC WOUND CULTURE & STN CPT-4: 03856 07/06/2016 CEFTRIAXONE SODIUM INJECTION CPT-4: J0696 05/25/2016 THER/PROPH/DIAG INJ SC/IM CPT-4: 66213 05/25/2016 THER/PROPH/DIAG INJ SC/IM CPT-4: 51159 04/26/2016 DEXAMETHASONE SODIUM PHOS CPT-4: J1100 04/26/2016 CEFTRIAXONE SODIUM INJECTION CPT-4: J0696 04/26/2016 THER/PROPH/DIAG INJ SC/IM CPT-4: 29092 04/26/2016 THER/PROPH/DIAG INJ SC/IM CPT-4: 41209 02/09/2016 TRIAMCINOLONE ACET INJ NOS CPT-4: J3301 02/09/2016 URINALYSIS NONAUTO W/O SCOPE CPT-4: 61318 01/24/2016 URINE CULTURE/ COLONY COUNT CPT-4: 16362 01/24/2016 THER/PROPH/DIAG INJ SC/IM CPT-4: 86677 12/08/2015 TRIAMCINOLONE ACET INJ NOS CPT-4: J3301 12/08/2015 THER/PROPH/DIAG INJ SC/IM CPT-4: 29415 10/07/2015 TRIAMCINOLONE ACET INJ NOS CPT-4: J3301 10/07/2015 DESTRUCT PREMALG LESION (Cryosurgery) CPT-4: 16871 THER/PROPH/DIAG INJ SC/IM CPT-4: 54854 03/16/2015 METHYLPREDNISOLONE 40 MG INJ CPT-4: J1030 03/16/2015 DESTRUCT PREMALG LESION (Cryosurgery) CPT-4: 04577 THER/PROPH/DIAG INJ SC/IM CPT-4: 11811 09/11/2014 METHYLPREDNISOLONE 40 MG INJ CPT-4: J1030 09/11/2014 TRIAMCINOLONE ACET INJ NOS CPT-4: J3301 09/11/2014 CEFTRIAXONE SODIUM INJECTION CPT-4: J0696 09/11/2014 THER/PROPH/DIAG INJ SC/IM CPT-4: 98103 09/11/2014 ROUTINE VENIPUNCTURE CPT-4: 22265 08/27/2014 COMPREHEN METABOLIC PANEL CPT-4: 07634 08/27/2014 COMPLETE CBC W/AUTO DIFF WBC CPT-4: 52198 08/27/2014 LIPID PANEL CPT-4: 60659 08/27/2014 ROUTINE VENIPUNCTURE CPT-4: 89854 07/21/2014 ASSAY OF AMYLASE CPT-4: 69951 07/21/2014 ASSAY OF LIPASE CPT-4: 96391 07/21/2014 THER/PROPH/DIAG INJ SC/IM CPT-4: 32125 07/15/2014 TRIAMCINOLONE ACET INJ NOS CPT-4: J3301 07/15/2014 ROUTINE VENIPUNCTURE CPT-4: 71813 05/14/2014 ASSAY OF FREE THYROXINE CPT-4: 87441 05/14/2014 ASSAY THYROID STIM HORMONE CPT-4: 93942 05/14/2014 COMPREHEN METABOLIC PANEL CPT-4: 70993 05/14/2014 COMPLETE CBC W/AUTO DIFF WBC CPT-4: 51793 05/14/2014 LIPID PANEL CPT-4: 80228 05/14/2014 CEFTRIAXONE SODIUM INJECTION CPT-4: J0696 04/21/2014 THER/PROPH/DIAG INJ SC/IM CPT-4: 80175 04/21/2014 THER/PROPH/DIAG INJ SC/IM CPT-4: 02290 04/21/2014 TRIAMCINOLONE ACET INJ NOS CPT-4: J3301 04/21/2014 THER/PROPH/DIAG INJ SC/IM CPT-4: 23738 03/04/2014 METHYLPREDNISOLONE 40 MG INJ CPT-4: J1030 03/04/2014 TRIAMCINOLONE ACET INJ NOS CPT-4: J3301 03/04/2014 CEFTRIAXONE SODIUM INJECTION CPT-4: J0696 03/04/2014 THER/PROPH/DIAG INJ SC/IM CPT-4: 47058 03/04/2014 TDAP VACCINE 7 YRS/> IM CPT-4: 31094 02/27/2014 IMMUNIZATION ADMIN CPT-4: 14209 02/27/2014 DESTRUCT PREMALG LESION (Cryosurgery) CPT-4: 78322 DESTRUCT PREMALG LES 2-14 CPT-4: 51109 01/13/2014 THER/PROPH/DIAG INJ SC/IM CPT-4: 85338 10/21/2013 METHYLPREDNISOLONE 40 MG INJ CPT-4: J1030 10/21/2013 TRIAMCINOLONE ACET INJ NOS CPT-4: J3301 10/21/2013 CEFTRIAXONE SODIUM INJECTION CPT-4: J0696 08/27/2013 THER/PROPH/DIAG INJ SC/IM CPT-4: 19141 08/27/2013 THER/PROPH/DIAG INJ SC/IM CPT-4: 50765 08/27/2013 METHYLPREDNISOLONE 40 MG INJ CPT-4: J1030 08/27/2013 TRIAMCINOLONE ACET INJ NOS CPT-4: J3301 08/27/2013 THER/PROPH/DIAG INJ SC/IM CPT-4: 48947 06/23/2013 METHYLPREDNISOLONE 40 MG INJ CPT-4: J1030 06/23/2013 TRIAMCINOLONE ACET INJ NOS CPT-4: J3301 06/23/2013 THER/PROPH/DIAG INJ SC/IM CPT-4: 21464 05/26/2013 METHYLPREDNISOLONE 40 MG INJ CPT-4: J1030 05/26/2013 TRIAMCINOLONE ACET INJ NOS CPT-4: J3301 05/26/2013 ROUTINE VENIPUNCTURE CPT-4: 58971 03/05/2013 ASSAY OF FREE THYROXINE CPT-4: 27929 03/05/2013 ASSAY THYROID STIM HORMONE CPT-4: 38395 03/05/2013 COMPREHEN METABOLIC PANEL CPT-4: 68939 03/05/2013 COMPLETE CBC W/AUTO DIFF WBC CPT-4: 04260 03/05/2013 A1C GLYCOSYLATED HEMOGLOBIN TEST CPT-4: 98784 013 DRAIN/INJECT JOINT/BURSA CPT-4: 45162 12/04/2012 METHYLPREDNISOLONE 40 MG INJ CPT-4: J1030 12/04/2012 TRIAMCINOLONE ACET INJ NOS CPT-4: J3301 12/04/2012 CEFTRIAXONE SODIUM INJECTION CPT-4: J0696 11/21/2012 THER/PROPH/DIAG INJ SC/IM CPT-4: 55508 11/21/2012 THER/PROPH/DIAG INJ SC/IM CPT-4: 31944 10/14/2012 METHYLPREDNISOLONE 40 MG INJ CPT-4: J1030 10/14/2012 TRIAMCINOLONE ACET INJ NOS CPT-4: J3301 10/14/2012 URINALYSIS NONAUTO W/O SCOPE CPT-4: 27729 09/27/2012 ROUTINE VENIPUNCTURE CPT-4: 76933 09/25/2012 ASSAY OF FREE THYROXINE CPT-4: 41738 09/25/2012 ASSAY THYROID STIM HORMONE CPT-4: 13499 09/25/2012 COMPREHEN METABOLIC PANEL CPT-4: 47311 09/25/2012 COMPLETE CBC W/AUTO DIFF WBC CPT-4: 97688 09/25/2012 C-REACTIVE PROTEIN CPT-4: 42385 09/25/2012 THER/PROPH/DIAG INJ SC/IM CPT-4: 21378 08/29/2012 METHYLPREDNISOLONE 40 MG INJ CPT-4: J1030 08/29/2012 TRIAMCINOLONE ACET INJ NOS CPT-4: J3301 08/29/2012 DESTRUCT PREMALG LESION (Cryosurgery) CPT-4: 23590 THER/PROPH/DIAG INJ SC/IM CPT-4: 50654 05/06/2012 METHYLPREDNISOLONE 40 MG INJ CPT-4: J1030 05/06/2012 TRIAMCINOLONE ACET INJ NOS CPT-4: J3301 05/06/2012 VITAMIN B 12 FOLIC ACID CPT-4: 84990|17841 05/06/2012 RBC SED RATE AUTOMATED CPT-4: 30413 05/06/2012 ROUTINE VENIPUNCTURE CPT-4: 66420 05/06/2012 ASSAY OF FREE THYROXINE CPT-4: 58007 05/06/2012 ASSAY THYROID STIM HORMONE CPT-4: 69627 05/06/2012 COMPREHEN METABOLIC PANEL CPT-4: 10443 05/06/2012 COMPLETE CBC W/AUTO DIFF WBC CPT-4: 81257 05/06/2012 ASSAY OF BLOOD/URIC ACID CPT-4: 43382 05/06/2012 THER/PROPH/DIAG INJ SC/IM CPT-4: 29624 03/19/2012 KETOROLAC TROMETHAMINE INJ CPT-4: J1885 03/19/2012 KETOROLAC TROMETHAMINE INJ CPT-4: J1885 01/30/2012 THER/PROPH/DIAG INJ SC/IM CPT-4: 48175 01/30/2012 PROMETHAZINE HCL INJECTION CPT-4: J2550 01/30/2012 THER/PROPH/DIAG INJ SC/IM CPT-4: 30754 01/24/2012 METHYLPREDNISOLONE 40 MG INJ CPT-4: J1030 01/24/2012 TRIAMCINOLONE ACET INJ NOS CPT-4: J3301 01/24/2012 THER/PROPH/DIAG INJ SC/IM CPT-4: 85766 09/13/2011 KETOROLAC TROMETHAMINE INJ CPT-4: J1885 09/13/2011 THER/PROPH/DIAG INJ SC/IM CPT-4: 67540 09/13/2011 PROMETHAZINE HCL INJECTION CPT-4: J2550 09/13/2011 CEFTRIAXONE SODIUM INJECTION CPT-4: J0696 07/20/2011 THER/PROPH/DIAG INJ SC/IM CPT-4: 51597 07/20/2011 THER/PROPH/DIAG INJ SC/IM CPT-4: 02775 07/20/2011 METHYLPREDNISOLONE INJECTION CPT-4: J2930 07/20/2011 URINALYSIS NONAUTO W/O SCOPE CPT-4: 31207 05/09/2011 CEFTRIAXONE SODIUM INJECTION CPT-4: J0696 05/09/2011 THER/PROPH/DIAG INJ SC/IM CPT-4: 82243 05/09/2011 THER/PROPH/DIAG INJ SC/IM CPT-4: 40705 05/09/2011 PROMETHAZINE HCL INJECTION CPT-4: J2550 05/09/2011 HYDRATION IV INFUSION INIT CPT-4: 83675 05/09/2011 DESTRUCT PREMALG LESION (Cryosurgery) CPT-4: 37164 DESTRUCT PREMALG LES 2-14 CPT-4: 76863 07/19/2010 REMOVAL OF SKIN TAGS <W/15 CPT-4: 56125 05/30/2010 THER/PROPH/DIAG INJ SC/IM CPT-4: 82649 04/05/2010 CEFTRIAXONE SODIUM INJECTION CPT-4: J0696 04/05/2010 TRIAMCINOLONE ACET INJ NOS CPT-4: J3301 04/05/2010 METHYLPREDNISOLONE 40 MG INJ CPT-4: J1030 04/05/2010 THER/PROPH/DIAG INJ SC/IM CPT-4: 62598 04/05/2010 TRIAMCINOLONE ACET INJ NOS CPT-4: J3301 03/09/2010 METHYLPREDNISOLONE 40 MG INJ CPT-4: J1030 03/09/2010 THER/PROPH/DIAG INJ SC/IM CPT-4: 56810 03/09/2010 THER/PROPH/DIAG INJ SC/IM CPT-4: 64604 03/09/2010 CEFTRIAXONE SODIUM INJECTION CPT-4: J0696 03/09/2010 Vital Signs Date Vital 05/28/2019 Blood Pressure 1: 126/82 Code: 8480-6 BMI: 35.0 Code: 35227-5 Heart Rate 1: 88 bpm Height: 5'4" [...] 1: 128/90 Code: 8480-6 BMI: 37.2 Code: 84386-2 Heart Rate 1: 84 bpm Height: 5'4" Respiratory Rate: 20 bpm SpO2: 95% Tempera ture: 36.6 (C) / 97.8 (F) Weight: 217 lbs 08/27/2018 Blood Pressure 1: 128/88 Code: 8480-6 BMI: 38.3 Code: 22065-3 Heart Rate 1: 84 bpm Height: 5'4" [...] 1: 119/72 Code: 8480-6 BMI: 37.4 Code: 73746-2 Heart Rate 1: 82 bpm Height: 5'4" Respiratory Rate: 12 bpm SpO2: 94% Tempera ture: 35.2 (C) / 95.4 (F) Weight: 218 lbs 12/18/2017 Blood Pressure 1: 128/86 Code: 8480-6 BMI: 37.8 Code: 73903-3 Heart Rate 1: 84 bpm Height: 5'4" [...] 1: 128/82 Code: 8480-6 BMI: 35.5 Code: 95921-3 Heart Rate 1: 84 bpm Height: 5'4" [...] 1: 128/82 Code: 8480-6 BMI: 30.2 Code: 86563-5 Heart Rate 1: 80 bpm Height: 5'4" [...] 1: 128/86 Code: 8480-6 BMI: 32.8 Code: 05266-1 Heart Rate 1: 66 bpm Height: 5'4" Respiratory Rate: 18 bpm Temperature: 36 .3 (C) / 97.3 (F) Weight: 191 lbs 06/23/2013 Blood Pressure 1: 132/94 Code: 8480-6 BMI: 34.0 Code: 13647-5 Heart Rate 1: 84 bpm Height: 5'4" Respiratory Rate: 20 bpm Temperature: 36 .8 (C) / 98.2 (F) Weight: 198 lbs 05/26/2013 Blood Pressure 1: 114/80 Code: 8480-6 BMI: 35.0 Code: 89859-2 Heart Rate 1: 80 bpm Height: 5'4" Respiratory Rate: 20 bpm Temperature: 36 .4 (C) / 97.6 (F) Weight: 204 lbs 04/16/2013 Blood Pressure 1: 114/82 Code: 8480-6 BMI: 36.7 Code: 92514-9 Heart Rate 1: 84 bpm Height: 5'4" Respiratory Rate: 20 bpm Temperature: 36 .7 (C) / 98.0 (F) Weight: 214 lbs 03/05/2013 Blood Pressure 1: 136/90 Code: 8480-6 BMI: 37.1 Code: 09490-1 Heart Rate 1: 84 bpm Height: 5'4" [...] 1: 168/114 Code: 8480-6 BMI: 36.2 Code: 18886-5 Heart Rate 1: 104 bpm Height: 5'4" Respiratory Rate: 20 bpm Temperature: 36 .8 (C) / 98.2 (F) Weight: 211 lbs 11/22/2012 Blood Pressure 1: 128/90 Code: 8480-6 Heart Rate 1: 88 bpm Respiratory Rate: 20 bpm SpO2: 96% Temperature: 36.8 (C) / 98.2 (F) 11/21/2012 Blood Pressure 1: 146/100 Code: 8480-6 BMI: 35.7 Code: 06120-1 Heart Rate 1: 96 bpm Height: 5'4" [...] 1: 138/100 Code: 8480-6 BMI: 35.7 Code: 79514-4 Heart Rate 1: 96 bpm Height: 5'4" Respiratory Rate: 20 bpm Temperature: 36 .8 (C) / 98.2 (F) Weight: 208 lbs 05/06/2012 Blood Pressure 1: 154/102 Code: 8480-6 BMI: 34.7 Code: 46397-5 Heart Rate 1: 116 bpm Height: 5'4" Respiratory Rate: 20 bpm Temperature: 36 .8 (C) / 98.2 (F) Weight: 202 lbs 04/03/2012 Blood Pressure 1: 134/94 Code: 8480-6 BMI: 34.8 Code: 63068-6 Heart Rate 1: 108 bpm Height: 5'4" Respiratory Rate: 20 bpm Temperature: 36 .8 (C) / 98.2 (F) Weight: 203 lbs 03/19/2012 Blood Pressure 1: 148/106 Code: 8480-6 BMI: 35.0 Code: 22351-3 Heart Rate 1: 100 bpm Height: 5'4" Respiratory Rate: 20 bpm Temperature: 36 .6 (C) / 97.9 (F) Weight: 204 lbs 02/22/2012 Blood Pressure 1: 146/94 Code: 8480-6 He art Rate 1: 88 bpm 02/21/2012 Blood Pressure 1: 172/120 Code: 8480-6 B lood Pressure 2: 152/106 Code: 8480-6 Heart Rate 1: 116 bpm 02/20/2012 Blood Pressure 1: 160/100 Code: 8480-6 BMI: 32.0 Code: 05289-8 Heart Rate 1: 84 bpm Height: 5'7" Temperature: 36.5 (C) / 97.7 (F) Weight: 204 lbs 01/30/2012 Blood Pressure 1: 152/110 Code: 8480-6 BMI: 32.0 Code: 81957-1 Heart Rate 1: 116 bpm Height: 5'7" Respiratory Rate: 20 bpm Temperature: 37 .0 (C) / 98.6 (F) Weight: 204 lbs 01/24/2012 Blood Pressure 1: 146/100 Code: 8480-6 BMI: 32.0 Code: 37242-2 Heart Rate 1: 100 bpm Height: 5'7" Respiratory Rate: 20 bpm Temperature: 36 .7 (C) / 98.0 (F) Weight: 204 lbs 01/10/2012 Blood Pressure 1: 156/94 Code: 8480-6 BMI: 32.6 Code: 82143-0 Heart Rate 1: 72 bpm Height: 5'7" Respiratory Rate: 20 bpm Temperature: 36 .8 (C) / 98.2 (F) Weight: 208 lbs 12/11/2011 Blood Pressure 1: 146/100 Code: 8480-6 Heart Rat e 1: 116 bpm Height: 5'7" Respiratory Rate: 20 bpm Temperature: 36.9 (C) / 98.4 (F) We ight: 11/09/2011 Blood Pressure 1: 148/96 Code: 8480-6 BMI: 32.1 Code: 86962-9 Heart Rate 1: 116 bpm Height: 5'7" Respiratory Rate: 20 bpm Temperature: 36 .7 (C) / 98.0 (F) Weight: 205 lbs 09/13/2011 Blood Pressure 1: 126/88 Code: 8480-6 Heart Rate 1: 88 bpm Height: 5'7" Respiratory Rate: 20 bpm Temperature: 36.9 (C) / 98.4 (F) We ight: 08/31/2011 Blood Pressure 1: 118/82 Code: 8480-6 BMI: 32.0 Code: 98598-3 Heart Rate 1: 80 bpm Height: 5'7" Temperature: 36.4 (C) / 97.6 (F) Weight: 204 lbs 07/06/2011 Blood Pressure 1: 128/86 Code: 8480-6 BMI: 30.9 Code: 28249-0 Heart Rate 1: 92 bpm Height: 5'7" Respiratory Rate: 20 bpm Temperature: 36 .9 (C) / 98.4 (F) Weight: 197 lbs 06/06/2011 Blood Pressure 1: 112/74 Code: 8480-6 BMI: 31.0 Code: 59505-5 Heart Rate 1: 72 bpm Height: 5'7" [...] 1: 128/92 Code: 8480-6 BMI: 33.6 Code: 19090-8 Heart Rate 1: 104 bpm Height: 5'4" [...] Diagnosis: Mixed hyperlipidemia[ICD10: E78.2] María Elena APPIAH [employer] CPT-4: 21257 09/29/2019 ([id number]) OFFICE/OUTPATIENT VISIT EST Diagnosis: Essential (primary) hypertension[ICD10: I10] Diagnosis: Fall from bed, sequela[ICD10: W06.XXXS] María Elena APPIAH DO [employer] CPT-4: 12717 05/28/2019 ([id number]) NURSE/OUTPATIENT VISIT EST Diagnosis: Essential (primary) hypertension[ICD10: I10] María Elena APPIAH DO [facility] CPT-4: 45700 05/19/2019 ([id number]) OFFICE/OUTPATIENT VISIT EST Diagnosis: Essential (primary) hypertension[ICD10: I10] Diagnosis: Type 2 diabetes mellitus with hyperglycemia[ICD10: E11.65] Diagnosis: Intervertebral disc disorders with radiculopathy, 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] Diagnosis: Hormone replacement therapy[ICD10: Z79.890] María Elena APPIAH DO [facility] CPT-4: 80280 01/22/2019 ([id number]) OFFICE/OUTPATIENT VISIT EST Diagnosis: Essential (primary) hypertension[ICD10: I10] Diagnosis: Type 2 diabetes mellitus with hyperglycemia[ICD10: E11.65] María Elena APPIAH [employer] [facility] CPT-4: 93141 09/30/2018 ([id number]) OFFICE/OUTPATIENT VISIT EST Diagnosis: Pain in left elbow[ICD10: M25.522] Diagnosis: Acute stress reaction[ICD10: F43.0] Diagnosis: Primary insomnia[ICD10: F51.01] Diagnosis: Abnormal weight gain[ICD10: R63.5] María Elena APPIAH [employer] [facility] CPT-4: 98324 08/27/2018 ([id number]) OFFICE/OUTPATIENT VISIT EST Diagnosis: Acute recurrent sinusitis, unspecified[ICD10: J01.91] Diagnosis: Follicular disorder, unspecified[ICD10: L73.9] Diagnosis: Tinea corporis[ICD10: B35.4] María Elena APPIAH [employer] [facility] CPT-4: 63334 08/09/2018 ([id number]) OFFICE/OUTPATIENT VISIT EST Diagnosis: Tinea corporis[ICD10: B35.4] Diagnosis: Anxiety disorder, unspecified[ICD10: F41.9] Diagnosis: Menopausal and female climacteric states[ICD10: N95.1] María Elena APPIAH [employer] [facility] CPT-4: 37836 07/22/2018 ([id number]) NURSE/OUTPATIENT VISIT EST Diagnosis: Cellulitis of right toe[ICD10: L03.031] María Elena APPIAH DO [facility] CPT-4: 01649 06/19/2018 ([id number]) OFFICE/OUTPATIENT VISIT EST Diagnosis: Cellulitis of right toe[ICD10: L03.031] Kathleen APPIAH DO [facility] CPT-4: 01122 06/17/2018 ([id number]) OFFICE/OUTPATIENT VISIT EST Diagnosis: Migraine without aura, intractable, without status migrainosus[ICD10: G43.019] Diagnosis: Zoster without complications[ICD10: B02.9] Kathleen APPIAH DO [facility] CPT-4: 37547 05/16/2018 ([id number]) OFFICE/OUTPATIENT VISIT EST Diagnosis: Cellulitis of right lower limb[ICD10: L03.115] Kathleen APPIAH DO [facility] CPT-4: 23543 03/20/2018 ([id number]) OFFICE/OUTPATIENT VISIT EST Diagnosis: Cellulitis of right lower limb[ICD10: L03.115] Kathleen APPIAH DO [facility] CPT-4: 48309 03/18/2018 ([id number]) OFFICE/OUTPATIENT VISIT EST Diagnosis: Cellulitis of right lower limb[ICD10: L03.115] Kathleen APPIAH DO [facility] CPT-4: 64320 03/15/2018 ([id number]) OFFICE/OUTPATIENT VISIT EST Diagnosis: Acute sinusitis, unspecified[ICD10: J01.90] Kathleen APPIAH DO [facility] CPT-4: 12269 02/11/2018 ([id number]) NURSE/OUTPATIENT VISIT EST Diagnosis: Otitis media, unspecified, right ear[ICD10: H66.91] María Elena APPIAH DO [facility] CPT-4: 16819 02/01/2018 ([id number]) OFFICE/OUTPATIENT VISIT EST Diagnosis: Acute suppurative otitis media without spontaneous rupture of ear drum, left ear[ICD10: H66.002] Diagnosis: Abnormal weight gain[ICD10: R63.5] Diagnosis: Intervertebral disc disorders with radiculopathy, 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] Kathleen APPIAH DO [facility] CPT-4: 99 214 01/30/2018 ([id number]) PREV VISIT EST AGE 40-64 Diagnosis: Encounter for general adult medical examination without abnormal findings[ICD10: Z00.00] Diagnosis: Essential (primary) hypertension[ICD10: I10] Diagnosis: Mixed hyperlipidemia[ICD10: E78.2] Diagnosis: Type 2 diabetes mellitus with hyperglycemia[ICD10: E11.65] Diagnosis: 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] María Elena ELLISLINE Fabiola APPIAH [employer] [facility] CPT-4: 84644 12/18/2017 ([id number]) OFFICE/OUTPATIENT VISIT EST Diagnosis: Cellulitis of right toe[ICD10: L03.031] Diagnosis: Mixed hyperlipidemia[ICD10: E78.2] Diagnosis: Essential (primary) hypertension[ICD10: I10] Diagnosis: Hyperglycemia, unspecified[ICD10: R73.9] Diagnosis: Nontoxic goiter, 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] María Elena Seamusdawn MARÍA ELENA Fabiola APPIAH [employer] [facility] CPT-4: 11635 12/10/2017 ([id number]) OFFICE/OUTPATIENT VISIT EST Diagnosis: Cellulitis of right toe[ICD10: L03.031] Diagnosis: Acute sinusitis, unspecified[ICD10: J01.90] Kathleen APPIAH DO [facility] CPT-4: 73771 12/07/2017 OFFICE/OUTPATIENT VISIT EST Diagnosis: Acute maxillary sinusitis, unspecified[ICD10: J01.00] Kathleen APPIAH [employer] [facility] CPT-4: 51613 10/08/2017 ([id number]) OFFICE/OUTPATIENT VISIT EST Diagnosis: Cellulitis of left toe[ICD10: L03.032] María Elena MARIN Fabiola APPIAH [employer] [facility] CPT-4: 67393 09/21/2017 ([id number]) OFFICE/OUTPATIENT VISIT EST Diagnosis: Insomnia, unspecified[ICD10: G47.00] Diagnosis: Major depressive disorder, single episode, unspecified[ICD10: F32.9] Diagnosis: Anxiety disorder, unspecified[ICD10: F41.9] Diagnosis: Cellulitis of left toe[ICD10: L03.032] Diagnosis: Snoring[ICD10: R06.83] Kathleen APPIAH DO 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] Diagnosis: Primary insomnia[ICD10: F51.01] Diagnosis: Other fatigue[ICD10: R53.83] María Elena ELLISLINE LucioJj TD [employer] [facility] CPT-4: 84592 04/10/2017 ([id number]) OFFICE/OUTPATIENT VISIT EST Diagnosis: Primary insomnia[ICD10: F51.01] Diagnosis: Localized edema[ICD10: R60.0] Diagnosis: 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] María Elena Seamusdawn MARÍA ELENA LucioJj TD [employer] [facility] CPT-4: 86025 12/13/2016 ([id number]) OFFICE/OUTPATIENT VISIT EST Diagnosis: Primary insomnia[ICD10: F51.01] Diagnosis: Cyanosis[ICD10: R23.0] María Elena Seamusdawn MONTEROMARÍA ELENA LucioJj CIRO Bazzi [employer] [facility] CPT-4: 79821 11/01/2016 ([id number]) PREV VISIT EST AGE 40-64 Diagnosis: Encounter for gynecological examination (general) (routine) without abnormal findings[ICD10: Z01.419] Diagnosis: Encounter for routine child health examination without abnormal findings[ICD10: Z00.129] María Elnea APPIAH DO [facility] CPT-4: 58458 10/17/2016 ([id number]) OFFICE/OUTPATIENT VISIT EST Diagnosis: Other seasonal allergic rhinitis[ICD10: J30.2] María Elena APPIAH DO [facility] CPT-4: 65857 10/10/2016 ([id number]) OFFICE/OUTPATIENT VISIT EST Diagnosis: Pain in left arm[ICD10: M79.602] Diagnosis: Contact with and (suspected) exposure to potentially hazardous body fluids[ICD10: Z77.21] Diagnosis: 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, 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] Diagnosis: Unspecified open wound, right foot, sequela[ICD10: S91.301S] María Elena APPIAH DO [facility] CPT-4: 82539 09/19/2016 ([id number]) OFFICE/OUTPATIENT VISIT EST Diagnosis: Chronic sinusitis, unspecified[ICD10: J32.9] Diagnosis: Allergic rhinitis due to pollen[ICD10: J30.1] María Elena APPIAH DO [facility] CPT-4: 51783 08/24/2016 ([id number]) OFFICE/OUTPATIENT VISIT EST Diagnosis: Acute bronchitis, unspecified[ICD10: J20.9] María Elena APPIAH DO [facility] CPT-4: 13330 08/16/2016 ([id number]) OFFICE/OUTPATIENT VISIT EST Diagnosis: Otitis media, unspecified, right ear[ICD10: H66.91] Diagnosis: Acute bronchitis, unspecified[ICD10: J20.9] María Elena APPIAH DO [facility] CPT-4: 62754 08/10/2016 ([id number]) OFFICE/OUTPATIENT VISIT EST Diagnosis: Acute recurrent sinusitis, unspecified[ICD10: J01.91] Diagnosis: Allergic rhinitis due to pollen[ICD10: J30.1] María Elena APPIAH DO [facility] CPT-4: 54354 08/02/2016 ([id number]) OFFICE/OUTPATIENT VISIT EST Diagnosis: Pain in unspecified joint[ICD10: M25.50] María Elena APPIAH DO [facility] CPT-4: 12393 07/27/2016 OFFICE/OUTPATIENT VISIT EST Diagnosis: 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] Diagnosis: Acute recurrent sinusitis, unspecified[ICD10: J01.91] Diagnosis: Other fatigue[ICD10: R53.83] Diagnosis: Primary insomnia[ICD10: F51.01] Diagnosis: Pain in unspecified joint[ICD10: M25.50] María Elena APPIAH [employer] [facility] CPT-4: 01844 07/20/2016 ([id number]) OFFICE/OUTPATIENT VISIT EST Diagnosis: Blister (nonthermal), left great toe, initial encounter[ICD10: S90.422A] Loan APPIAH DO [facility] CPT-4: 40109 ([id number]) OFFICE/OUTPATIENT VISIT EST Diagnosis: Acute recurrent sinusitis, unspecified[ICD10: J01.91] María Elena APPIAH DO [facility] CPT-4: 58698 05/25/2016 ([id number]) OFFICE/OUTPATIENT VISIT EST Diagnosis: Acute sinusitis, unspecified[ICD10: J01.90] María Elena APPIAH DO [facility] CPT-4: 15626 04/26/2016 ([id number]) OFFICE/OUTPATIENT VISIT EST Diagnosis: Flushing[ICD10: R23.2] Diagnosis: Primary insomnia[ICD10: F51.01] María Elena APPIAH DO [facility] CPT-4: 66406 03/02/2016 ([id number]) OFFICE/OUTPATIENT VISIT EST Diagnosis: Other seasonal allergic rhinitis[ICD10: J30.2] Loan APPIAH DO [facility] CPT-4: 49527 02/09/2016 ([id number]) OFFICE/OUTPATIENT VISIT EST Diagnosis: Primary insomnia[ICD10: F51.01] Diagnosis: Urinary tract infection, site not specified[ICD10: N39.0] María Elena GODOYNDER [facility] CPT-4: 51763 01/24/2016 ([id number]) OFFICE/OUTPATIENT VISIT EST Diagnosis: Other specified disorders of Eustachian tube, bilateral[ICD10: H69.83] Diagnosis: Allergic rhinitis, unspecified[ICD10: J30.9] Loan APPIAH [facility] CPT-4: 65849 12/23/2015 ([id number]) OFFICE/OUTPATIENT VISIT EST Diagnosis: Acute recurrent sinusitis, unspecified[ICD10: J01.91] Diagnosis: 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] Diagnosis: Allergic rhinitis, unspecified[ICD10: J30.9] María Elena Td ELLISLINE Fabiola APPIAH [facility] CPT-4: 66110 12/08/2015 ([id number]) OFFICE/OUTPATIENT VISIT EST Diagnosis: Allergic rhinitis, unspecified[ICD10: J30.9] Diagnosis: Pain in unspecified joint[ICD10: M25.50] María Elena APPIAH [facility] CPT-4: 35467 10/07/2015 ([id number]) OFFICE/OUTPATIENT VISIT EST Diagnosis: Essential (primary) hypertension[ICD10: I10] María Elena Td ELLISLINE Fabiola APPIAH [facility] CPT-4: 37910 10/06/2015 OFFICE/OUTPATIENT VISIT EST Diagnosis: Localized enlarged lymph nodes[ICD10: R59.0] Diagnosis: Local infection of the skin and subcutaneous tissue, unspecified[ICD10: L08.9] June Flores MARÍA ELENA APPIAH [facility] CPT- 4: 66815 09/14/2015 ([id number]) OFFICE/OUTPATIENT VISIT EST Diagnosis: Essential (primary) hypertension[ICD10: I10] Diagnosis: Actinic keratosis[ICD10: L57.0] María Elena Td ELLISLINE Fabiola APPIAH [facility] CPT-4: 76745 09/07/2015 ([id number]) OFFICE/OUTPATIENT VISIT EST Diagnosis: Essential (primary) hypertension[ICD10: I10] Diagnosis: Acute stress reaction[ICD10: F43.0] María Elena COLON Fabiola APPIAH [facility] CPT-4: 93173 08/18/2015 ([id number]) OFFICE/OUTPATIENT VISIT EST Diagnosis: Essential (primary) hypertension[ICD10: I10] María Elena APPIAH DO [facility] CPT-4: 69780 07/07/2015 ([id number]) OFFICE/OUTPATIENT VISIT EST Diagnosis: Essential (primary) hypertension[ICD10: I10] María Elena APPIAH DO [facility] CPT-4: 90003 06/24/2015 ([id number]) OFFICE/OUTPATIENT VISIT EST Diagnosis: Essential (primary) hypertension[ICD10: I10] María Elena APPIAH DO [facility] CPT-4: 37671 06/21/2015 ([id number]) OFFICE/OUTPATIENT VISIT EST Diagnosis: Essential (primary) hypertension[ICD10: I10] Diagnosis: Mixed hyperlipidemia[ICD10: E78.2] Diagnosis: Acute stress reaction[ICD10: F43.0] Diagnosis: Primary insomnia[ICD10: F51.01] María Elena APPIAH DO [facility] CPT-4: 37151 06/16/2015 ([id number]) OFFICE/OUTPATIENT VISIT EST Diagnosis: INSOMNIA NOS[ICD9: 780.52] Diagnosis: HYPERTENSION[ICD9: 401.9] Diagnosis: Stress reaction[ICD9: 308.9] María Elena APPIAH DO [facility] CPT-4: 92903 06/02/2015 ([id number]) OFFICE/OUTPATIENT VISIT EST Diagnosis: HYPERTENSION[ICD9: 401.9] Diagnosis: Stress reaction[ICD9: 308.9] María Elena APPIAH DO [facility] CPT-4: 85585 05/20/2015 ([id number]) OFFICE/OUTPATIENT VISIT EST Diagnosis: Skin lesion[ICD9: 709.9] 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] María Elena APPIAH DO [facility] CPT-4: 27791 05/10/2015 ([id number]) OFFICE/OUTPATIENT VISIT EST Diagnosis: SINUSITIS, ACUTE[ICD9: 461.9] Diagnosis: ALLERGIC RHINITIS[ICD9: 477.9] Diagnosis: DERMATITIS NOS[ICD9: 692.9] María Elena REHMAN DO [facility] CPT-4: 46439 03/16/2015 OFFICE/OUTPATIENT VISIT EST Diagnosis: Otitis media[ICD9: 382.9] Diagnosis: SINUSITIS, ACUTE[ICD9: 461.9] June APPIAH [facility] CPT-4: 17789 09/11/2014 ([id number]) OFFICE/OUTPATIENT VISIT EST Diagnosis: HYPERLIPIDEMIA NEC/NOS[ICD9: 272.4] María Elena APPIAH DO [facility] CPT-4: 01765 08/31/2014 ([id number]) OFFICE/OUTPATIENT VISIT EST Diagnosis: - I - HYPERTENSION[ICD9: 401.9] Diagnosis: HYPERLIPIDEMIA NEC/NOS[ICD9: 272.4] María Elena APPIAH [facility] CPT-4: 13490 08/27/2014 ([id number]) OFFICE/OUTPATIENT VISIT EST Diagnosis: ABDOMINAL PAIN[ICD9: 789.00] Diagnosis: DYSPEPSIA[ICD9: 536.8] Diagnosis: Thoracic back pain[ICD9: 724.1] María Elena APPIAH [facility] CPT-4: 75578 07/21/2014 ([id number]) OFFICE/OUTPATIENT VISIT EST Diagnosis: ALLERGIC RHINITIS[ICD9: 477.9] María Elena APPIAH [facility] CPT-4: 06087 07/15/2014 ([id number]) OFFICE/OUTPATIENT VISIT EST Diagnosis: EDEMA[ICD9: 782.3] Diagnosis: Chronic insomnia[ICD9: 780.52] María Elena APPIAH [facility] CPT-4: 47825 05/18/2014 ([id number]) OFFICE/OUTPATIENT VISIT EST Diagnosis: Thyromegaly[ICD9: 240.9] Diagnosis: - I - HYPERTENSION[ICD9: 401.9] Diagnosis: ROUTINE MEDICAL EXAM[ICD9: V70.0] Diagnosis: EDEMA[ICD9: 782.3] María Elena APPIAH [facility] CPT-4: 04099 05/14/2014 OFFICE/OUTPATIENT VISIT EST Diagnosis: BRONCHITIS, ACUTE[ICD9: 466.0] Diagnosis: SINUSITIS, ACUTE[ICD9: 461.9] María Elena APPIAH [facility] CPT-4: 62197 04/21/2014 OFFICE/OUTPATIENT VISIT EST Diagnosis: SINUSITIS, ACUTE[ICD9: 461.9] June [facility] CPT-4: 62472 03/04/2014 ([id number]) OFFICE/OUTPATIENT VISIT EST Diagnosis: VACCINE FOR TDAP[ICD10: Z23] María Elena [facility] CPT-4: 81472 02/27/2014 ([id number]) OFFICE/OUTPATIENT VISIT EST Diagnosis: Seborrheic keratoses, inflamed[ICD9: 702.11] Diagnosis: ACTINIC KERATOSIS[ICD9: 702.0] Diagnosis: INSOMNIA NOS[ICD9: 780.52] María Elena [facility] CPT-4: 92488 01/13/2014 OFFICE/OUTPATIENT VISIT EST Diagnosis: 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: 45771 11/12/2013 ([id number]) OFFICE/OUTPATIENT VISIT EST Diagnosis: ALLERGIC RHINITIS[ICD9: 477.9] Diagnosis: SINUSITIS, ACUTE[ICD9: 461.9] 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] María Elena APPIAH [facility] CPT-4: 36231 08/04/2013 ([id number]) OFFICE/OUTPATIENT VISIT EST Diagnosis: Cervicalgia[ICD9: 723.1] Diagnosis: SPASM OF MUSCLE[ICD9: 728.85] Diagnosis: CEPHALGIA, TENSION[ICD9: 307.81] María Elena APPIAH [facility] CPT-4: 09170 07/23/2013 ([id number]) OFFICE/OUTPATIENT VISIT EST Diagnosis: 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] Diagnosis: ALLERGIC RHINITIS[ICD9: 477.9] María Elena APPIAH [facility] CPT-4: 61056 06/23/2013 ([id number]) OFFICE/OUTPATIENT VISIT EST Diagnosis: ALLERGIC RHINITIS[ICD9: 477.9] Diagnosis: ACUTE SEROUS OTITIS MEDIA[ICD9: 381.01] Diagnosis: 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] María Elena APPIAH [facility] CPT-4: 51332 05/26/2013 ([id number]) OFFICE/OUTPATIENT VISIT EST Diagnosis: HYPERTENSION[ICD9: 401.9] Diagnosis: EDEMA[ICD9: 782.3] Diagnosis: Serous otitis media[ICD9: 381.4] María Elena APPIAH [facility] CPT-4: 80279 04/16/2013 ([id number]) OFFICE/OUTPATIENT VISIT EST Diagnosis: SINUSITIS, ACUTE[ICD9: 461.9] Diagnosis: ALLERGIC RHINITIS[ICD9: 477.9] Diagnosis: EDEMA[ICD9: 782.3] Diagnosis: Thyromegaly[ICD9: 240.9] Diagnosis: MALAISE AND FATIGUE[ICD9: 780.79] María Elena Lopez Fabiola APPIAH [facility] CPT-4: 19013 03/05/2013 ([id number]) OFFICE/OUTPATIENT VISIT EST Diagnosis: PAIN, LOWER BACK[ICD9: 724.2] Diagnosis: SPASM OF MUSCLE[ICD9: 728.85] María Elena JUARES LucioJj [facility] CPT-4: 51468 12/23/2012 OFFICE/OUTPATIENT VISIT EST Diagnosis: Low back pain[ICD9: 724.2] Lashawn Hicks KRISTYN [facility] CPT-4: 23137 12/16/2012 ([id number]) OFFICE/OUTPATIENT VISIT EST Diagnosis: PAIN, LOWER BACK[ICD9: 724.2] Diagnosis: SCIATICA[ICD9: 724.3] Diagnosis: Lumbar herniated disc[ICD9: 722.10] María Elena COLON LucioJj [facility] CPT-4: 81138 12/09/2012 ([id number]) OFFICE/OUTPATIENT VISIT EST Diagnosis: PAIN, LOWER BACK[ICD9: 724.2] Diagnosis: SCIATICA[ICD9: 724.3] Diagnosis: LUMBAR DISC DISPLACEMENT[ICD9: 722.10] María Elena MARIN LucioJj [facility] CPT-4: 11463 12/04/2012 OFFICE/OUTPATIENT VISIT EST Diagnosis: Pneumonia[ICD9: 486] Mary JUARES LucioJj [facility] CPT-4: 65184 11/22/2012 ([id number]) OFFICE/OUTPATIENT VISIT EST Diagnosis: PNEUMONIA, ORGANISM[ICD9: 486] Diagnosis: Exacerbation of RAD (reactive airway disease)[ICD9: 493.92] María Elena JUARES LucioJj [facility] CPT-4: 81073 11/21/2012 OFFICE/OUTPATIENT VISIT EST Diagnosis: HYPERTENSION[ICD9: 401.9] Diagnosis: Cephalgia[ICD9: 784.0] Lashawn Hicks TD [facility] CPT-4: 13030 10/29/2012 ([id number]) OFFICE/OUTPATIENT VISIT EST Diagnosis: MALAISE AND FATIGUE[ICD9: 780.79] Diagnosis: ARTHRALGIA-MULTIPLE SITES[ICD9: 719.49] María Elena APPIAH DO [facility] CPT-4: 08412 10/14/2012 ([id number]) OFFICE/OUTPATIENT VISIT EST Diagnosis: URINARY FREQUENCY[ICD9: 788.41] María Elena Seamusmindimaryjane ValdesJj TD GARIBAY [facility] CPT-4: 88432 09/27/2012 ([id number]) OFFICE/OUTPATIENT VISIT EST Diagnosis: MALAISE AND FATIGUE[ICD9: 780.79] Diagnosis: ARTHRALGIA-MULTIPLE SITES[ICD9: 719.49] María Elena Seamusmindimaryjane ValdesJj TD GARIBAY [facility] CPT-4: 33185 09/25/2012 ([id number]) OFFICE/OUTPATIENT VISIT EST Diagnosis: SINUSITIS, ACUTE[ICD9: 461.9] Diagnosis: 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] María Elena ValdesJj TD GARIBAY [facility] CPT-4: 59762 08/29/2012 OFFICE/OUTPATIENT VISIT EST Diagnosis: ACTINIC KERATOSIS[ICD9: 702.0] Diagnosis: Inflamed seborrheic keratosis[ICD9: 702.11] Diagnosis: Skin cancer of face[ICD9: 173.31] Diagnosis: HYPERTENSION[ICD9: 401.9] María Elenamarcella Appiah MARÍA ELENA LucioJj SEAMUS DAWN [facility] CPT-4: 76948 08/12/2012 ([id number]) OFFICE/OUTPATIENT VISIT EST Diagnosis: ARTHRALGIA-MULTIPLE SITES[ICD9: 719.49] Diagnosis: GOUT[ICD9: 274.9] Diagnosis: HYPERTENSION[ICD9: 401.9] Diagnosis: Tachycardia[ICD9: 785.0] María Elenamarcella JUARES LucioJj FRITZTaiwo BRADFORD [facility] CPT-4: 03616 05/06/2012 ([id number]) OFFICE/OUTPATIENT VISIT EST Diagnosis: INSOMNIA NOS[ICD9: 780.52] María Elena Hicks KRI[facility]YN [facility] CPT-4: 58583 04/03/2012 ([id number]) OFFICE/OUTPATIENT VISIT EST Diagnosis: INSOMNIA NOS[ICD9: 780.52] Diagnosis: HYPERTENSION[ICD9: 401.9] Diagnosis: MIGRAINE NOS/NOT INTRCBL[ICD9: 346.90] María Elena MARIN uLcioJj TD [facility] CPT-4: 62697 03/19/2012 ([id number]) OFFICE/OUTPATIENT VISIT EST Diagnosis: CELLULITIS[ICD9: 682.9] Diagnosis: Ankle pain[ICD9: 719.47] Diagnosis: HYPERTENSION[ICD9: 401.9] María Elena Hicks SEAMUS SEYMOUR [facility] CPT-4: 79190 02/20/2012 ([id number]) OFFICE/OUTPATIENT VISIT EST Diagnosis: MIGRAINE NOS/NOT INTRCBL[ICD9: 346.90] Diagnosis: Vomiting[ICD9: 787.03] María Elena Hicks SEAMUSGALINA Bazzi [facility] CPT-4: 99494 01/30/2012 ([id number]) OFFICE/OUTPATIENT VISIT EST Diagnosis: EDEMA[ICD9: 782.3] Diagnosis: HYPERTENSION[ICD9: 401.9] Diagnosis: ALLERGIC RHINITIS[ICD9: 477.9] Diagnosis: ARTHRALGIA-MULTIPLE SITES[ICD9: 719.49] María Elena Hicks [facility] CPT-4: 66672 01/24/2012 ([id number]) OFFICE/OUTPATIENT VISIT EST Diagnosis: SPASM OF MUSCLE[ICD9: 728.85] Diagnosis: Thoracic back pain[ICD9: 724.1] Diagnosis: Cervical pain[ICD9: 723.1] María Elena Hicks KRISTYN MUMTAZ [facility] CPT-4: 77685 01/10/2012 OFFICE/OUTPATIENT VISIT EST Diagnosis: PAIN, LOWER BACK[ICD9: 724.2] Diagnosis: LUMBAR DISC DISPLACEMENT[ICD9: 722.10] María Elena MARIN LucioJj TD [facility] CPT-4: 57617 12/11/2011 OFFICE/OUTPATIENT VISIT EST Diagnosis: MIGRAINE NOS/NOT INTRCBL[ICD9: 346.90] Diagnosis: SINUSITIS, ACUTE[ICD9: 461.9] María Elena APPIAH DO [facility] CPT-4: 70060 11/09/2011 OFFICE/OUTPATIENT VISIT EST Diagnosis: MIGRAINE NOS/NOT INTRCBL[ICD9: 346.90] Diagnosis: LYMPHADENOPATHY[ICD9: 785.6] María Elena APPIAH DO [facility] CPT-4: 07955 09/13/2011 OFFICE/OUTPATIENT VISIT EST Diagnosis: MALAISE AND FATIGUE[ICD9: 780.79] Diagnosis: ARTHRALGIA-MULTIPLE SITES[ICD9: 719.49] María Elena APPIAH DO [facility] CPT-4: 49909 08/31/2011 OFFICE/OUTPATIENT VISIT EST Diagnosis: SINUSITIS, ACUTE[ICD9: 461.9] María Elena APPIAH DO [facility] CPT-4: 13860 07/20/2011 OFFICE/OUTPATIENT VISIT EST Diagnosis: HYPERTENSION[ICD9: 401.9] Diagnosis: PAIN, LOWER BACK[ICD9: 724.2] Diagnosis: SPASM OF MUSCLE[ICD9: 728.85] María Elena APPIAH DO [facility] CPT-4: 24037 07/06/2011 OFFICE/OUTPATIENT VISIT EST Diagnosis: MIGRAINE NOS/NOT INTRCBL[ICD9: 346.90] Diagnosis: HYPERTENSION[ICD9: 401.9] María Elena SEYMOUR [facility] CPT-4: 22801 05/22/2011 OFFICE/OUTPATIENT VISIT EST Diagnosis: SINUSITIS, ACUTE[ICD9: 461.9] Diagnosis: MIGRAINE NOS/NOT INTRCBL[ICD9: 346.90] Diagnosis: Dehydration[ICD9: 276.51] Diagnosis: Vomiting[ICD9: 787.03] María Elena Seamusmindimaryjane ELLISMARÍA ELENA LucioJj CIRO Bazzi [facility] CPT-4: 08343 05/09/2011 ([id number]) OFFICE/OUTPATIENT VISIT EST María Elena Td APPIAH DO [facility] CPT-4: 18591 02/14/2011 ([id number]) OFFICE/OUTPATIENT VISIT EST María Elena Seamusmindimaryjane MARLIN CulverJARED APPIAH [facility] CPT-4: 23276 02/03/2011 ([id number]) OFFICE/OUTPATIENT VISIT EST María Elena [facility]AC [facility] CPT-4: 10953 01/31/2011 ([id number]) OFFICE/OUTPATIENT VISIT EST María Elena ISAAC [facility] CPT-4: 86414 01/25/2011 ([id number]) OFFICE/OUTPATIENT VISIT EST María Elena ISAAC [facility] CPT-4: 12934 01/18/2011 ([id number]) OFFICE/OUTPATIENT VISIT EST María Elena ISAAC [facility] CPT-4: 39403 11/29/2010 ([id number]) OFFICE/OUTPATIENT VISIT, EST María Elena MONTERO [facility]INE [facility] CPT-4: 52191 10/10/2010 ([id number]) OFFICE/OUTPATIENT VISIT, EST María Elena MONTERO [facility] CPT-4: 59259 06/07/2010 ([id number]) OFFICE/OUTPATIENT VISIT, EST María Elena MONTERO [facility] CPT-4: 40480 04/27/2010 ([id number]) OFFICE/OUTPATIENT VISIT, EST María Elena MONTERO [facility] CPT-4: 48299 04/05/2010 ([id number]) OFFICE/OUTPATIENT VISIT, EST María Elena MONTERO [facility] CPT-4: 16562 03/09/2010 ([id number]) OFFICE/OUTPATIENT VISIT, EST María Elena BRAUNLINE [facility] CPT-4: 76675 03/03/2010 ([id number]) OFFICE/OUTPATIENT VISIT, EST María Elena [facility]LINE [facility] CPT-4: 31150 01/17/2010 ([id number]) PREV VISIT, EST, AGE 40-64 María Elena CO[facility]MAN [facility] CPT-4: 88642 12/27/2009 Plan of Care Planned Activity Notes Codes Status Date Appointment: María Elena Appiah WPtel: [address] [place], [place] [phone] [place] Won't have the new insurance till [...] 05/28/2019 Appointment: María Elena Appiah WPtel: [address] [place], [place] [phone] [place] FOLLOW UP 05/28/2019 Appointment: María Elena Appiah WPtel: [address] [place], [place] [address] [place] BP CHECK 05/19/2019 Visit Diagnosis Plan: [...] 01/22/2019 Appointment: María Elena Appiah WPtel: [address] [place], [place] [phone] [place] FOLLOW UP 01/22/2019 Patient Education: estradiol- [employer] Coupon [id number] [email or web address]/[email or web address]/resources/getResource/61/[email or web address]-[email or web address] Completed 01/22/2019 Appointment: María Elena Appiah WPtel: [address] [place] [address] [place] CANCELED 01/20/2019 Appointment: María Elena Appiah WPtel: [address] [place] [address] [place] LM NO SHOW 01/06/2019 Appointment: María Elena Appiah WPtel: [address] [place] [address] [place] CANCELED 10/17/2018 Appointment: María Elena Appiah WPtel: [address] [place] [address] US BP CHECK 10/09/2018 Visit Diagnosis Plan: [...] I10 09/30/2018 Appointment: María Elena Appiah WPtel: [address] [place] [address] [place] FOLLOW UP 09/30/2018 Visit Diagnosis Plan: [...] 08/27/2018 Appointment: María Elena Appiah WPtel: [address] [place] [address] [place] ACUTE ILLNESS 08/27/2018 Appointment: María Elena Appiah WPtel: [address] [place], [place] [phone] [place] Patient stated she went out to [...] Tyle... 08/09/2018 Appointment: María Elena Appiah WPtel: [address] [place] [address] ACUTE ILLNESS 08/09/2018 Appointment: María Elena Appiah WPtel: [address] [place], [place] [phone] NO SHOW 08/08/2018 Visit Diagnosis Plan: Anxiety [...] 07/22/2018 Appointment: María Elena Appiah WPtel: [address] [place], [place] [phone] ACUTE ILLNESS 07/22/2018 Appointment: María Elena Appiahl: [address] [id number] [place] INJECTION 06/19/2018 Patient Education: Patient Medication [...] ICD-10 : L03.031 06/17/2018 Appointment: Kathleen Zuniga [address] [place] [address] ACUTE ILLNESS 06/17/2018 Patient Education: Patient Medication [...] ICD-10 : B02.9 05/16/2018 Appointment: Kathleen Zuniga [address] [place], [place] [phone] ACUTE ILLNESS 05/16/2018 Patient Education: Patient Medication [...] : L03.115 03/20/2018 Appointment: Kathleen Zuniga [address] [place], [place] [address] FOLLOW UP 03/20/2018 Patient Education: Patient Medication [...] ICD-10 : L03.115 03/18/2018 Appointment: Kathleen Zuniga [address] [place] [address] FOLLOW UP 03/18/2018 Patient Education: Patient Medication [...] : L03.115 03/15/2018 Appointment: Kathleen Zuniga [address] [place], [place] [address] ACUTE ILLNESS 03/15/2018 Patient Education: Patient Medication [...] : J01.90 02/11/2018 Appointment: Kathleen Zuniga [address] [place], [place] [address] ACUTE ILLNESS 02/11/2018 Patient Education: Patient Medication Summary Completed 02/11/2018 Appointment: María Elena Appiah WPtel: [phone] [id number] [place] INJECTION 02/01/2018 Patient Education: Patient [...] : M51.16 01/30/2018 Appointment: Kathleen Zuniga [address] [place], [place] [address] ACUTE ILLNESS 01/30/2018 Patient Education: [...] 12/18/2017 Appointment: María Elena Appiah WPtel: [phone] Annual Well Visit 12/18/2017 Patient Education: Patient Medication Summary Completed 12/18/2017 Care Plan: Referral Order SNOMED-CT : [id number] Pending 12/18/2017 Appointment: María Elena Appiah WPtel: [phone] [place] [address] [place] INJECTION 12/10/2017 Patient Education: Patient Medication [...] ICD-10 : L03.031 12/07/2017 Appointment: Kathleen Zuniga [address] [place] [address] ACUTE ILLNESS 12/07/2017 Patient Education: Patient Medication [...] : J01.00 10/08/2017 Appointment: Kathleen Zuniga [address] ACUTE ILLNESS 10/08/2017 Patient Education: Patient Medication Summary Completed 10/08/2017 Appointment: María Elena Appiah [facility]el[facility] [phone] [id number] [place] INJECTION 09/21/2017 Patient Education: Patient Medication [...] ICD-10 : R06.83 09/20/2017 Appointment: Kathleen Zuniga [address] [place], [place] [id number] ACUTE ILLNESS 09/20/2017 Patient Education: Patient Medication [...] ICD-10 : L60.0 08/29/2017 Appointment: Kathleen Zuniga [address] [place] [address] OFFICE SURGERY 08/29/2017 Patient Education: Patient Medication Summary Completed 08/29/2017 Visit Diagnosis Plan: Actinic keratosis Discussion: Cr yotherapy as above ICD-9 : 702.0 ICD-10 : L57.0 08/01/2017 Appointment: María Elena Appiah WPtel: [address] [place] [address] OFFICE SURGERY 08/01/2017 Patient Education: Patient Medication Summary Completed 08/01/2017 Appointment: María Elena Appiah WPtel: [address] [place] [address] PATIENT THOUGHT APPOINTMENT WAS TOMORROW 07/26/17 CALLED 15 MINUTES BEFORE APPT TO SAY SHE DIDN'T HAVE ANYONE TO COVER HER BUSINESS AND WOULD NOT MAKE IT NO SHOW 07/25/2017 Visit Diagnosis Plan: Cellulitis of left toe Discussio n: Clindamycin and notify if worsening or persistis ICD-9 : 681.10 ICD-10 : L03.032 07/19/2017 Appointment: María Elena Appiah WPtel: [address] [place], [place] [address] MEDICATION REVIEW 07/19/2017 Patient Education: Patient Medication Summary Completed 07/19/2017 Appointment: María Elena Appiah WPtel: [address] [place] [address] [place] CANCELED 07/04/2017 Visit Diagnosis Plan: Generalized hyperhidrosis Discus ian: CBC, CMP, TSH, free T4 ordered to assess. will review labs. ICD-9 : 780.8 ICD-10 : R61 06/27/2017 Visit Diagnosis Plan: Chronic sinusitis, unspecified D iscussion: Referral sent to dr. albarado in [place] per patient request. patient has been treated multiple times for sinus infections with no recovery. patient was seen by dr sanchez in the past with no interventions. patient has deviated septum which may be affecting her sinuses. 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, including hip Discussion: Shave removal of above lesio n--sent to pathology ICD-9 : 216.7 ICD-10 : D23.72 01/24/2017 Appointment: María Elena Appiah WPtel: [address] [place], [place] [phone] 01/23 confirmed ~sl OFFICE SURGERY 01/24/2017 Patient Education: Patient Medication Summary Completed 01/24/2017 Appointment: Loan Sánchez [address] [place], [place] [phone] 01/09 rescheduled~sl RESCHEDULED 01/15/2017 Visit Diagnosis Plan: [...] L81.4 12/13/2016 Appointment: María Elena Appiah WPtel: [address] [place], [place] [phone] 12/12 confirmed ~sl MEDICATION REVIEW 12/13/2016 Patient Education: Patient Medication Summary Completed 12/13/2016 Appointment: María Elena Appiah WPtel: [address] [place], [place] [phone] [place] rescheduled for 12/13/16 at 11am RESCHEDULED 0 12/06/2016 Appointment: María Elena Appiah WPtel: [address] [place], [place] [phone] [place] CANCELED 11/23/2016 Patient Education: Patient Medication [...] F51.01 11/01/2016 Appointment: María Elena Appiah WPtel: [address] [place], [place] [phone] [place] 10/31 lm `sl 11/01 lm`sl MEDICATION REVIEW 017 Patient Education: Patient Medication Summary Completed 11/01/2016 Referral: Canelo Overton WPtel: [phone] [id number] Referral Initiated 10/30/2016 Visit Diagnosis Plan: Encounter [...] 10/17/2016 Appointment: María Elena Appiah WPtel: [address] [place] [phone] 10/16 confirmed ~sl PAP 10/17/2016 Patient Education: Patient Medication Summary Completed 10/17/2016 Care Plan: MAMMOGRAM SCREENING LOINC : 2 6347-5 Pending 10/17/2016 Visit Diagnosis Plan: Other seasonal allergic rhinitis Discussion: Decadron/Garamycin Nasal [place] Mix Too soon for steroid Retry zyrtec 10mg daily ICD-9 : 477.9 ICD-10 : J30.2 10/10/2016 Appointment: María Elena Appiah WPtel: [address] [place] [phone] [place] FOLLOW UP 10/10/2016 Patient Education: Patient Medication Summary Completed 10/10/2016 Appointment: María Elena Appiah WPtel: [address] [place], [place] [phone] 10/02 reschedule `sl RESCHEDULED 10/02/2016 Visit Plan: See surgery for removal of n ew left arm lesion and right foot lesion Lyrica to use next month for left arm paresthesias Continue current meds Discussed sunscreen/sunblock combo 09/19/2016 Appointment: María Elena Appiahl: [address] [place] [address] 09/18 confirmed ~sl FOLLOW UP 09/19/2016 Patient Education: Patient Medication Summary Completed 09/19/2016 Patient Education: Patient Medication Summary Completed 09/18/2016 Care Plan: MAMMOGRAM BOTH BREASTS LOINC : 74250-9 Pending 09/18/2016 Visit Plan: Discussed that needs [...] sinuses 08/24/2016 Appointment: María Elena Appiah WPtel: [address] [place] [address] ACUTE ILLNESS 08/24/2016 Patient Education: Patient Medication Summary Completed 08/24/2016 Patient Education: Patient Medication Summary Completed 08/23/2016 Care Plan: MAMMOGRAM SCREENING LOINC : 2 6347-5 Pending 08/23/2016 Visit Plan: Finish doxycycline Add Breo 100/25 1 p BID for 2 weeks If not improving within next 2 days will get CXR 08/16/2016 Appointment: María Elena Appiah WPtel: [address] [place] [address] ACUTE ILLNESS 08/16/2016 Patient Education: Patient Medication Summary Completed 08/16/2016 Visit Plan: Supportive care. Rest, Fluid s, Tylenol/Motrin prn fever or bodyaches. Notify if worsening symptoms. Doxycyline and Prednisone 08/10/2016 Appointment: María Elena Appiah WPtel: [address] [place] [address] 08/09 lm`sl....confirmed-sp FOLLOW UP 09/2015 Patient Education: Patient Medication Summary Completed 08/10/2016 Visit Plan: Saline nasal flushes prn. Ty lenol/Motrin prn headache. Notify if persists/symptoms worsening. Dexamethasone 8mg IM today May use coricedan and mucinex 08/02/2016 Appointment: María Elena Appiah WPtel: [address] [place] [address] ACUTE ILLNESS 08/02/2016 Patient Education: Patient Medication Summary Completed 08/02/2016 Visit Plan: Cryotherapy as above and lef t forearm lesion removal as above with 5-0 punch biopsy and sent to path Return in 10 days for suture removal 08/01/2016 Appointment: María Elena Appiah WPtel: [address] [place], [place] [phone] 07/31 confirmed`~sl OFFICE SURGERY 08/01/2016 Patient Education: Patient Medication Summary Completed 08/01/2016 Visit Plan: Stop clindamycin Check CBC, CMP, ESR now/STAT 07/27/2016 Appointment: María Elena Appiah WPtel: [address] [place] [address] ACUTE ILLNESS 07/27/2016 Patient Education: Patient Medication Summary Completed 07/27/2016 Visit Plan: Update lab and check ABIs to start with Will likely need cardiology evaluation to rule out PVD Clindamycin for 10 days Daily yogurt or probiotic Will return for removal of left arm lesions 07/20/2016 Appointment: María Elena Appiah WPtel: [address] [place] [address] ACUTE ILLNESS 07/20/2016 Patient Education: Patient Medication Summary Completed 07/20/2016 Patient Education: Patient Medication Summary Completed 07/20/2016 Care Plan: MAMMOGRAM BOTH BREASTS LOINC : 48807-5 Pending 07/20/2016 Care Plan: US EXAM CHEST LOINC : 50031-3 Pending 07/20/2016 Visit Plan: Wound culture collected from left great toe Appearance is somewhat staph like Rx as above Wound cleanser and skin care reviewed May need to add oral antibiotic if sores do not heal or continue to reoccur 07/06/2016 Appointment: Loan Sánchez [address] [place] [address] ACUTE ILLNESS 07/06/2016 Patient Education: Patient Medication Summary Completed 07/06/2016 Appointment: María Elena Appiah WPtel: [address] [place] [address] [place] INJECTION 05/25/2016 Patient Education: Patient Medication Summary Completed 05/25/2016 Visit Plan: Saline nasal flushes prn. Ty lenol/Motrin prn headache. Notify if persists/symptoms worsening. Dexamethasone and Rocephin given 04/26/2016 Appointment: María Elena Appiah WPtel: [address] [place] [address] ACUTE ILLNESS 04/26/2016 Patient Education: Patient Medication Summary Completed 04/26/2016 Visit Plan: Check CBC, CMP, TSH, FreeT4, HbA1C, estradiol, lipids in AM 03/02/2016 Appointment: María Elena Appiah WPtel: [address] [place] [address] 03/01 lm~sl ACUTE ILLNESS 03/02/2016 Patient Education: Patient Medication Summary Completed 03/02/2016 Visit Plan: Exam is nearly normal Needs to be taking daily antihistamine Would prefer to use oral steroids instead of shot but patient insist that oral steroids cause horrible headaches for her Will given kenalog IM instead 02/09/2016 Appointment: oLan Sánchez [address] [place] [address] ACUTE ILLNESS 02/09/2016 Patient Education: Patient Medication Summary Completed 02/09/2016 Visit Plan: Culture urine Macrobid DC xa nax Trial of Ativan 1mg q HS 01/24/2016 Appointment: María Elena Appiah WPtel: [address] [place] [address] ACUTE ILLNESS 01/24/2016 Patient Education: Patient Medication Summary Completed 01/24/2016 Visit Plan: No steroid or rocephin injec tion warranted Can have oral prednisone Continue current home regimen Needs to follow up with Dr Sanchez if problems persist 12/23/2015 Appointment: Loan Sánchez [address] [place] [address] ACUTE ILLNESS 12/23/2015 Patient Education: Patient Medication Summary Completed 12/23/2015 Visit Plan: Saline nasal flushes prn. Ty lenol/Motrin prn headache. Notify if persists/symptoms worsening. Kenalog 40mg IM today 12/08/2015 Appointment: María Elena Appiah WPtel: [address] [place] [address] 12/06 confirmed~sl ACUTE ILLNESS 12/08/2015 Patient Education: Patient Medication Summary Completed 12/08/2015 Appointment: María Elena Appiah WPtel: [address] [place] [address] ACUTE ILLNESS 11/18/2015 Patient Education: Patient Medication Summary Completed 10/11/2015 Appointment: María Elena Appiah WPtel: [address] [place] [address] [place] INJECTION 10/07/2015 Patient Education: Patient Medication Summary Completed 10/07/2015 Visit Plan: Check renal arterial doppler s and ECHO Change amlodopine to lotrel 5/20mg q HS Will need stress test as well Check CMP, uric acid, ESR 10/06/2015 Appointment: María Elena Appiah WPtel: [address] [place] [address] ACUTE ILLNESS 10/06/2015 Patient Education: Patient Medication Summary Completed 10/06/2015 Patient Education: [facility] - [employer] - Amlodipine Besylate - 18-64 - Dynamic Portal ID Completed 10/06/2015 Appointment: María Elena Appiah WPtel: [address] [place] [address] FOLLOW UP 09/22/2015 Visit Plan: Cephalexin 500 mg PO bid Mery ly topical Mupirocin to lesions on left lateral neck and face Follow-up in one week. Sooner if symptoms worsen 09/14/2015 Appointment: June Flores WPtel: [address] [place] [address] ACUTE ILLNESS 09/14/2015 Patient Education: Patient Medication Summary Completed 09/14/2015 Visit Plan: Change bystolic to bedtime d osing and amlodopine to morning dosing Cryotherapy as above to AKs 09/07/2015 Appointment: María Elena Appiah WPtel: [address] [place] [address] 09/06 appointment made and confirmed ~sl FOLLOW UP 09/07/2015 Patient Education: Patient Medication Summary Completed 09/07/2015 Visit Plan: Increase bystolic back to 20 mg daily but will split and take 10mg in AM and 10mg in PM Stress Reducers 08/18/2015 Appointment: María Elena Appiah WPtel: [address] [place], [place] [id number] 08/17/15 appt confirmed cn ACUTE ILLNESS 08/18 Patient Education: Patient Medication Summary Completed 08/18/2015 Appointment: María Elena Appiah WPtel: [address] [place] [address] BP CHECK 07/07/2015 Patient Education: Patient Medication Summary Completed 07/07/2015 Appointment: María Elena Appiah WPtel: [address] [place] [address] BP CHECK 06/24/2015 Patient Education: Patient Medication Summary Completed 06/24/2015 Appointment: María Elena Appiah WPtel: [address] [place] [address] BP CHECK 06/21/2015 Patient Education: Patient Medication Summary Completed 06/21/2015 Visit Plan: Lab discussed Continue curre nt meds and lifestyle modification Recheck lab in 6mos 06/16/2015 Appointment: María Elena Appiah WPtel: [address] [place] [address] 06/15 confirmed FOLLOW UP 06/16/2015 Patient Education: Patient Medication Summary Completed 06/16/2015 Patient Education: Patient Medication Summary Completed 06/15/2015 Visit Plan: Increase cymbalta to 60mg q HS Keep clonidine at current dose Recheck 2weeks Change xanax to klonopin 06/02/2015 Appointment: María Elena Appiah WPtel: [address] [place], [place] [phone] 06/02 lm FOLLOW UP 06/02/2015 Patient Education: Patient Medication Summary Completed 06/02/2015 Appointment: María Elena Appiah WPtel: [address] [place] [address] ACUTE ILLNESS 05/24/2015 Visit Plan: Increase clonidine to 0.2mg q HS Add cymbalta 30mg q HS Recheck 2weeks Stress Reducers Check fasting lab Discussed sleep study 05/20/2015 Appointment: María Elena Appiah WPtel: [address] [place] [address] ACUTE ILLNESS 05/20/2015 Patient Education: Patient Medication Summary Completed 05/20/2015 Patient Education: [facility] - [employer] - Cymbalta - 18-64 - Dynamic Portal ID Completed 05/20/2015 Appointment: María Elena Appiah WPtel: [address] [place] [address] BP CHECK 05/19/2015 Patient Education: Patient Medication Summary Completed 05/19/2015 Visit Plan: Topical Bactroban alternatin g with topical betamethasone Recheck 2weeks 05/10/2015 Appointment: María Elena Appiah WPtel: [address] [place], [place] [id number] 05/07 cn...05/07 appt confirmed OFFICE SURGER Y 05/10/2015 Patient Education: Patient Medication Summary Completed 05/10/2015 [facility]: [facility] [address] Referral Initiated 05/04/2015 Visit Plan: Saline nasal flushes prn. Ty lenol/Motrin prn headache. Notify if persists/symptoms worsening. Depomedrol 40mg IM today 03/16/2015 Appointment: María Elena Appiah WPtel: [address] [place] [address] ACUTE ILLNESS 03/16/2015 Patient Education: Patient Medication Summary Completed 03/16/2015 Appointment: María Elena Appiah WPtel: [address] [place] [address] ER Follow UP 03/09/2015 Visit Plan: Cryotherapy to lesions as ab ove 10/27/2014 Appointment: María Elena Appiah WPtel: [address] [place] [address] OFFICE SURGERY 10/27/2014 Patient Education: Patient Medication Summary Completed 10/27/2014 Appointment: June Flores WPtel: [address] [place] [address] ACUTE ILLNESS 09/11/2014 Patient Education: Patient Medication Summary Completed 09/11/2014 Visit Plan: Lab discussed Lipitor 10mg d aily Coenzyme Q-10 400mg daily Vitamin D3 5000u daily Recheck lipids with LFTs in 3mos then fwup 08/31/2014 Appointment: María Elena Appiah WPtel: [address] [place] [address] 08/28 voicemail FOLLOW UP 08/31/2014 Patient Education: Patient Medication Summary Completed 08/31/2014 Appointment: María Elena Appiah WPtel: [address] [place] [address] US LAB 08/27/2014 Appointment: María Elena Appiah WPtel: [address] [place], [place] [phone] [place] LAB 08/27/2014 Patient Education: Patient Medication Summary Completed 08/27/2014 Appointment: María Elena Appiah WPtel: [address] [place] [address] ACUTE ILLNESS 07/23/2014 Appointment: María Elena Appiah WPtel: [address] [place] [address] ACUTE ILLNESS 07/21/2014 Patient Education: Patient Medication Summary Completed 07/21/2014 Visit Plan: Kenalog 40mg IM today Contin ue narendra and singulair Add Flonase 07/15/2014 Appointment: María Elena Appiah WPtel: [address] [place], [place] [phone] ACUTE ILLNESS 07/15/2014 Appointment: María Elena Appiah WPtel: [address] [place], [place] [phone] ACUTE ILLNESS 07/15/2014 Patient Education: Patient Medication Summary Completed 07/15/2014 Visit Plan: Will do metolazone 2.5mg prn with 6 potassium and see if causes as severe cramping Trial of of seroquel XR 50mg q PM with evening meal and let us know how works 05/18/2014 Appointment: María Elena Appiah WPtel: [address] [place], [place] [phone] 05/15 left message FOLLOW UP 05/18/2014 Patient Education: Patient Medication Summary Completed 05/18/2014 Appointment: María Elena Appiah WPtel: [address] [place], [place] [phone] [place] LAB 05/14/2014 Patient Education: Patient Medication Summary Completed 05/14/2014 Appointment: María Elena Appiah WPtel: [address] [place], [place] [phone] [place] INJECTION 04/22/2014 Visit Plan: Tisha and Miranda today a nd finish abx given from urgent care 04/21/2014 Appointment: María Elena Appiah WPtel: [address] [place], [place] [phone] [place] INJECTION 04/21/2014 Patient Education: Patient Medication Summary Completed 04/21/2014 Appointment: June Flores WPtel: [address] [place], [place] [phone] ACUTE ILLNESS 03/04/2014 Patient Education: Patient Medication Summary Completed 03/04/2014 Appointment: María Elena Appiah WPtel: [address] [place], [place] [phone] [place] INJECTION 02/27/2014 Patient Education: Patient Medication Summary Completed 02/27/2014 Visit Plan: Cryotherapy as above to all lesions Patient wants to try no meds for insomnia for a while and see how goes 01/13/2014 Appointment: María Elena Appiah WPtel: [address] [place] [address] OFFICE SURGERY 01/13/2014 Patient Education: Patient Medication Summary Completed 01/13/2014 Visit Plan: Stop Melatonin Stop Soma Tri al of trazadone 75mg q HS See ENT for possible tubes as has had chronic ETD and serous otitis media with numerous steroids 12/24/2013 Appointment: María Elena Appiah WPtel: [address] [place] [address] ACUTE ILLNESS 12/24/2013 Patient Education: Patient Medication Summary Completed 12/24/2013 Visit Plan: Saline nasal flushes prn. Ty lenol/Motrin prn headache. Notify if persists/symptoms worsening. 11/12/2013 Appointment: María Elena Appiah WPtel: [address] [place] [address] ACUTE ILLNESS 11/12/2013 Patient Education: Patient Medication Summary Completed 11/12/2013 Appointment: María Elena Appiah WPtel: [address] [place] [address] ACUTE ILLNESS 10/21/2013 Patient Education: Patient Medication Summary Completed 10/21/2013 Visit Plan: Sleep hygiene and sleep rout ine Melatonin 10mg q HS Support stockings and observe 09/22/2013 Appointment: María Elena Appiah WPtel: [address] [place] [address] ACUTE ILLNESS 09/22/2013 Patient Education: Patient Medication Summary Completed 09/22/2013 Appointment: June Flores WPtel: [address] [place] [address] ACUTE ILLNESS 08/27/2013 Patient Education: Patient Medication Summary Completed 08/27/2013 Visit Plan: Proceed with CT scan of head /neck Proceed with occipital nerve injections Butrans 20mcg patch weekly until can get into see Dr. Mcdonough for injections 08/04/2013 Appointment: María Elena Appiahtel: [address] [place] [address] FOLLOW UP 08/04/2013 Patient Education: Patient Medication Summary Completed 08/04/2013 Visit Plan: OMT done Daily neck stretche s, moist heat Increase Celebrex to 200mg BID Add flexeril 07/23/2013 Appointment: María Elena Appiah WPtel: [address] [place] [address] 07/22 voicemail FOLLOW UP 07/23/2013 Patient Education: Patient Medication Summary Completed 07/23/2013 Appointment: María Elena Appiah WPtel: [address] [place] [address] ACUTE ILLNESS 06/23/2013 Patient Education: Patient Medication Summary Completed 06/23/2013 Appointment: María Elena Appiah WPtel: [address] [place] [address] ACUTE ILLNESS 05/26/2013 Patient Education: Patient Medication Summary Completed 05/26/2013 Visit Plan: Decrease clonidine to 0.1mg TID If BP remains stable consider decreasing amlodopine Prednisone for 5 days BP check in 1mo 04/16/2013 Appointment: María Elena Appiahtel: [address] [place] [address] 04/14 pt called and confirmed appt FOLLOW UP 04/16/2013 Patient Education: Patient Medication Summary Completed 04/16/2013 Appointment: María Elena Appiahtel: [address] [place] [address] ACUTE ILLNESS 03/05/2013 Patient Education: Patient Medication Summary Completed 03/05/2013 Visit Plan: Pt has MARIA ELENA on with Dr. Mcdonough Continue Butrans patch Refill Hydrocodone early tomorrow 12/23/2012 Appointment: María Elena Appiahtel: [address] [place] [address] FOLLOW UP 12/23/2012 Patient Education: Patient Medication Summary Completed 12/23/2012 Appointment: Lashawn Eckert WPtel: [address] [place] [address] ACUTE ILLNESS 12/16/2012 Patient Education: Patient Medication Summary Completed 12/16/2012 Visit Plan: Proceed with updated MRI of LS spine Continue gabapentin and add soma and diclofenac Will likely need to go for another epidural 12/09/2012 Appointment: María Elena Appiah WPtel: [address] [place] [address] ACUTE ILLNESS 12/09/2012 Patient Education: Patient Medication Summary Completed 12/09/2012 Visit Plan: Injection as above Finish me drol dose pack Chiropracter this afternoon 12/04/2012 Appointment: María Elena Appiah WPtel: [address] [place] [address] ACUTE ILLNESS 12/04/2012 Patient Education: Patient Medication Summary Completed 12/04/2012 Appointment: Mary Tillman WPtel: [address] [place] [address] FOLLOW UP 11/22/2012 Patient Education: Patient Medication Summary Completed 11/22/2012 Appointment: María Elena Appiah WPtel: [address] [place] [address] ACUTE ILLNESS 11/21/2012 Patient Education: Patient Medication Summary Completed 11/21/2012 Appointment: María Elena Appiah WPtel: [address] [place] [address] BP CHECK 11/07/2012 Patient Education: Patient Medication [...] re-check. 10/29/2012 Appointment: Lashawn Eckert WPtel: [address] [place] [address] ACUTE ILLNESS 10/29/2012 Patient Education: Patient Medication Summary Completed 10/29/2012 Appointment: María Elena Appiah WPtel: [address] [place] [address] ACUTE ILLNESS 10/14/2012 Patient Education: Patient Medication Summary Completed 10/14/2012 Appointment: María Elena Appiah WPtel: [address] [place] [address] 09/27/2012 Patient Education: Patient Medication Summary Completed 09/27/2012 Appointment: María Elena Appiah WPtel: [address] [place] [address] ACUTE ILLNESS 09/25/2012 Patient Education: Patient Medication Summary Completed 09/25/2012 Appointment: María Elena Appiah WPtel: [address] [place] [address] BP CHECK 09/24/2012 Appointment: María Elena Appiah WPtel: [address] [place] [address] ACUTE ILLNESS 08/29/2012 Patient Education: Patient Medication Summary Completed 08/29/2012 Visit Plan: Cryotherapy as above See Karlos m for right ear lesion--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 ACUTE ILLNESS 05/06/2012 Patient Education: Patient Medication Summary Completed 05/06/2012 Visit Plan: Pt wants to hold on any furt her sleep medications 04/03/2012 Appointment: María Elena Appiah WPtel: [address] [place] [address] FOLLOW UP 04/03/2012 Patient Education: Patient Medication Summary Completed 04/03/2012 Appointment: María Elena Appiah WPtel: [address] [place] [address] FOLLOW UP 03/19/2012 Patient Education: Patient Medication Summary Completed 03/19/2012 Appointment: María Elena Appiah WPtel: [address] [place] [address] BP CHECK 02/22/2012 Patient Education: Patient Medication Summary Completed 02/22/2012 Appointment: María Elena Appiah WPtel: [address] [place] [address] BP CHECK 02/21/2012 Patient Education: Patient Medication Summary Completed 02/21/2012 Visit Plan: Doxycycline and bactroban fo r foot Supportive care on ankles and knees Add norvasc for BP 02/20/2012 Appointment: María Elena Appiah WPtel: [address] [place] [address] ER Follow UP 02/20/2012 Patient Education: Patient Medication Summary Completed 02/20/2012 Appointment: María Elena Appiah WPtel: [address] [place] [address] ACUTE ILLNESS 01/30/2012 Patient Education: Patient Medication Summary Completed 01/30/2012 Appointment: María Elena Appiah WPtel: [address] [place] [address] ACUTE ILLNESS 01/24/2012 Patient Education: Patient Medication Summary Completed 01/24/2012 Visit Plan: Daily back stretches, moist heat, Biofreeze prn OMT done 01/10/2012 Appointment: María Elena Appiahtel: [address] [place] [address] ACUTE ILLNESS 01/10/2012 Patient Education: Patient Medication Summary Completed 01/10/2012 Appointment: María Elena Appiahtel: [address] [place] [address] FOLLOW UP 12/11/2011 Patient Education: Patient Medication Summary Completed 12/11/2011 Appointment: María Elena Appiahtel: [address] [place] [address] ACUTE ILLNESS 11/09/2011 Patient Education: Patient Medication Summary Completed 11/09/2011 Appointment: María Elena Appiahtel: [address] [place] [address] ACUTE ILLNESS 09/13/2011 Patient Education: Patient Medication Summary Completed 09/13/2011 Visit Plan: Check CBC, TSH, Free T4, CMP , ESR, Vit D, B12 now Start Prednisone today 08/31/2011 Appointment: María Elena Appiahtel: [address] [place] [address] ACUTE ILLNESS 08/31/2011 Patient Education: Patient Medication Summary Completed 08/31/2011 Appointment: María Elena Appiahtel: [address] [place] [address] [place] INJECTION 07/20/2011 Patient Education: Patient Medication Summary Completed 07/20/2011 Visit Plan: Continue current meds Monite r BP Cont stretches from PT 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 07/06/2011 Appointment: María Elena Appiahtel: [address] [place] [address] FOLLOW UP 07/06/2011 Patient Education: Patient Medication Summary Completed 07/06/2011 Appointment: María Elena Appiahtel: [address] [place], [place] [phone] BP CHECK 06/06/2011 Patient Education: Patient Medication Summary Completed 06/06/2011 Visit Plan: Add Bystolic at 2.5mg QAM Ad d Robaxin 750mg 2 po q HS BP check in 2wks 05/22/2011 Appointment: María Elena Appiah WPtel: [address] [place], [place] [phone] FOLLOW UP 05/22/2011 Patient Education: Patient Medication Summary Completed 05/22/2011 Appointment: María Elena Appiah WPtel: [address] [place], [place] [phone] ER Follow UP 05/09/2011 Patient Education: Patient Medication Summary Completed 05/09/2011 Appointment: María Elena Appiah WPtel: [address] [place] [address] FOLLOW UP 02/22/2011 Visit Plan: Rx written for Hydrocodone 1 0/325mg #240 See Ortho 02/14/2011 Appointment: María Elena Appiah WPtel: [address] [place], [place] [phone] OMT 02/14/2011 Patient Education: Patient Medication Summary [...] lab work. 02/03/2011 Appointment: Lashawn Eckert WPtel: [address] [place], [place] [phone] ACUTE ILLNESS 02/03/2011 Patient Education: Patient Medication Summary Completed 02/03/2011 Visit Plan: OMT done Cont daily stretche s 01/31/2011 Appointment: María Elena Appiahtel: [address] [place] [address] ACUTE ILLNESS 01/31/2011 Patient Education: Patient Medication Summary Completed 01/31/2011 Visit Plan: Continue pain meds OMT done Proceed with PT No work this summer01/25/2011 Appointment: María Elena Appiah WPtel: [address] [place] [address] ACUTE ILLNESS 01/25/2011 Patient Education: Patient Medication Summary Completed 01/25/2011 Visit Plan: Start PT Long discussion abo ut getting pain meds from only and can only have max of 4grams of tylenol per day Change to Hydrocodone 10/325mg 1- 2 po TID prn pain--#180 called to [place] 01/18/2011 Appointment: María Elena Appiah WPtel: [address] [place] [address] FOLLOW UP 01/18/2011 Patient Education: Patient Medication Summary Completed 01/18/2011 Visit Plan: Daily back stretches, moist heat, Biofreeze prn 11/29/2010 Appointment: María Elena Appiahtel: [address] [place] [address] ER Follow UP 11/29/2010 Patient Education: Patient Medication Summary Completed 11/29/2010 Visit Plan: Saline nasal flushes prn. Ty lenol/Motrin prn headache. Notify if persists/symptoms worsening. Finish augmentin Add Medrol Dose Pack 10/10/2010 Appointment: María Elena Appiahtel: [address] [place] [address] ACUTE ILLNESS 10/10/2010 Patient Education: Patient Medication Summary Completed 10/10/2010 Visit Plan: Cryotherapy x3 to multiple l esions on both forearms 07/19/2010 Appointment: María Elena Appiahtel: [address] [place], [place] [phone] [place] OFFICE SURGERY 07/19/2010 Patient Education: Patient Medication Summary Completed 07/19/2010 Appointment: María Elena Appiah WPtel: [address] [place], [place] [phone] [place] BP CHECK 07/06/2010 Patient Education: Patient Medication Summary Completed 07/06/2010 Appointment: María Elena Appiah WPtel: [address] [place], [place] [phone] [place] BP CHECK 06/30/2010 Patient Education: Patient Medication Summary Completed 06/30/2010 Appointment: María Elena Appiah WPtel: [address] [place], [place] [phone] [place] BP CHECK 06/20/2010 Patient Education: Patient Medication Summary Completed 06/20/2010 Visit Plan: Change Diovan to Exforge 160 /5mg QD OMT done to thoracics BP check in 2wks 06/07/2010 Appointment: María Elena Appiah WPtel: [address] [place] [address] FOLLOW UP 06/07/2010 Patient Education: Patient Medication Summary Completed 06/07/2010 Appointment: María Elena Appiah WPtel: [address] [place], [place] [phone] [place] BP CHECK 06/03/2010 Patient Education: Patient Medication Summary Completed 06/03/2010 Appointment: María Elena Appiah WPtel: [address] [place], [place] [phone] [place] BP CHECK 06/01/2010 Patient Education: Patient Medication Summary Completed 06/01/2010 Visit Plan: Irritated skin tags to left neck x2 excised at base with scissors and base cauterized 05/30/2010 Appointment: María Elena Appiah WPtel: [address] [place], [place] [phone] OFFICE SURG[facility] 05/30/2010 Patient Education: Patient Medication Summary Completed 05/30/2010 Visit Plan: Saline nasal flushes prn. Ty lenol/Motrin prn headache. Notify if persists/symptoms worsening. Restart Nasonex Has allergy testing set for May 25 04/27/2010 Appointment: María Elena Appiahtel: [address] [place] [address] ACUTE ILLNESS 04/27/2010 Patient Education: Patient Medication Summary Completed 04/27/2010 Visit Plan: Saline nasal flushes prn. Ty lenol/Motrin prn headache. Notify if persists/symptoms worsening. Omnaris BID plus injections 04/05/2010 Appointment: María Elena Appiahtel: [address] [place] [address] ACUTE ILLNESS 04/05/2010 Patient Education: Patient Medication Summary Completed 04/05/2010 Visit Plan: Saline nasal flushes prn. Ty lenol/Motrin prn headache. Notify if persists/symptoms worsening. 03/09/2010 Appointment: María Elena Appiah WPtel: [address] [place] [address] ACUTE ILLNESS 03/09/2010 Patient Education: Patient Medication Summary Completed 03/09/2010 Visit Plan: Cont Clonidine as is Cont Pr emarin Fwup with surgery as scheduled 03/03/2010 Appointment: María Elena Appiahtel: [address] [place] [address] FOLLOW UP 03/03/2010 Patient Education: Patient Medication Summary Completed 03/03/2010 Visit Plan: Check Pelvic US now Dukee tacho Dand C vs Hysterectomy 01/17/2010 Appointment: María Elena Appiahtel: [address] [place] [address] ACUTE ILLNESS 01/17/2010 Patient Education: Patient Medication Summary Completed 01/17/2010 Visit Plan: Check fasting lab and schedu le Mammogram 2gm Na Diet Trial of Ambien 10mg qhs Fwup pending lab results 12/27/2009 Appointment: María Elena Appiahtel: [phone] [id number] [place] ESTABLISHED PATIENT 12/27/2009 Patient Education: Patient Medication Summary Completed 12/27/2009 Referral: Canelo Overton WPtel: [address] [id number] [place] Referral Initiated Referral: Mark Philipp WPtel: [address] [id number] [place] Referral Appointment Requested Instructions Comment . [...]
--- OUTSIDE RECORDS SUMMARY | 2020-03-13 06:42 | XMS REPORT | CCD ---
Author Author Gale Appiah D.O. Organization [facility] Address [address] [place] [id number] Phone Care Team Providers Care Medical Csr Name Role Phone María Elena Appiah D.O., PP Unavailable CCM Unavailable Summary Purpose Interface Exchange Insurance Providers Payer name Policy type / Coverage type Covered democrat ID Effective Begin Date Effective End Date [facility] Commercial Insurance [id number] Unknown Family History Family History data not found Social History Social History Element Codes Description Effective Dates Tobacco history SNOMED CT: [id number] Never smoker 05/22/2011 Allergies, Adverse Reactions, Alerts [...] Fill Instructions gabapentin 300 mg capsule RxNorm: 468850 TAKE ONE CAPSU LE BY MOUTH EVERY NIGHT AT BEDTIME 09/19/2019 No Stop Date Active baclofen 10 mg tablet RxNorm: 486583 TAKE ONE TABLET BY MOUTH THREE TIMES A DAY NEEDED 09/19/2019 No Stop Date Active Klor-Con 8 mEq tablet,extended release RxNorm: 181691 T FARRUKH ONE TABLET BY MOUTH TWICE A DAY 1 Tablet(s) Oral two times a day 09/19/2019 10/19/2019 Act darion hydrocodone 10 mg-acetaminophen 325 mg tablet RxNorm: 036836 1-2 Tablet(s) Oral three times a day as needed for pain 09/19/2019 No Stop Date Active duloxetine 60 mg capsule,delayed release RxNorm: 774209 TAKE ONE CAPSULE BY MOUTH DAILY 09/11/2019 No Stop Date Active Lipitor 10 mg tablet RxNorm: 059383 TAKE ONE TABLET BY MOUTH AT BEDTIME 09/11/2019 No Stop Date Active lisinopril 20 mg tablet RxNorm: 048877 TAKE ONE TABLET BY MOUTH DAILY .... THIS REPLACE 10MG TABLETS 09/11/2019 No Stop Date Active triamterene 75 mg-hydrochlorothiazide 50 mg tablet RxNorm: 3 58959 TAKE ONE TABLET BY MOUTH DAILY 09/11/2019 No Stop Date Active allopurinol 300 mg tablet RxNorm: 727310 TAKE ONE TABLET BY LOPEZ TH DAILY 09/11/2019 No Stop Date Active celecoxib 200 mg capsule RxNorm: 755543 TAKE ONE CAPSUL E BY MOUTH TWICE A DAY NEEDED FOR PAIN 09/11/2019 No Stop Date Active clonidine HCl 0.1 mg tablet RxNorm: 181990 TAKE ONE TAB LET BY MOUTH FOUR TIMES A DAY 09/11/2019 No Stop Date Active doxepin 25 mg capsule RxNorm: 3797406 1 Capsule(s) Oral every night at bedtime as needed for sleep 08/21/2019 11/18/2019 Active hydrocodone 10 mg-acetaminophen 325 mg tablet RxNorm: 366116 1-2 Tablet(s) PO TID 08/12/2019 No Stop Date Active as needed for pa in - Previous quantity #240, will start dosing for #180 in April 2011 per Doctor Td. Medrol (Dustin) 4 mg tablets in a dose pack RxNorm: 703871 Tablet(s) Oral As Directed 07/21/2019 No Stop Date Active Premarin 1.25 mg tablet RxNorm: 871192 1 Tablet(s) Oral QD 07/02/20 19 03/28/2020 Active hydrocodone 10 mg-acetaminophen 325 mg tablet RxNorm: 764361 1-2 Tablet(s) PO TID 07/01/2019 08/11/2019 Inactive as needed for pa in - Previous quantity #240, will start dosing for #180 in April 2011 per Doctor Td. gabapentin 300 mg capsule RxNorm: 365585 1 Capsule(s) PO QHS 201809/18/2019 Inactive celecoxib 200 mg capsule RxNorm: 481438 1 Capsule(s) Or al two times a day as needed for pain 06/27/2019 06/27/2019 Inactive Singulair 10 mg tablet RxNorm: 794329 TAKE ONE TABLET BY MOUTH JOSÉ Y 06/24/2019 No Stop Date Active furosemide 40 mg tablet RxNorm: 232897 TAKE ONE TABLET BY MOUTH EVERY MORNING NEEDED FOR EDEMA . TAKE WITH POTASSIUM 06/24/2019 No Stop Date Active doxepin 25 mg capsule RxNorm: 1575880 TAKE ONE CAPSULE B Y MOUTH EVERY NIGHT AT BEDTIME NEEDED FOR SLEEP 06/24/2019 08/20/2019 Inactive lisinopril 20 mg tablet RxNorm: 576629 TAKE ONE TABLET BY MOUTH DAILY .... THIS REPLACE 10MG TABLETS 06/24/2019 09/10/2019 Inactive nystatin-triamcinolone 100,000 unit/g-0.1 % topical cream Rx Norm: 4843315 1 Application Topical two times a day 06/12/2019 06/19/2019 Inactive apply BID for 1 week nystatin-triamcinolone 100,000 unit/g-0.1 % topical cream Rx Norm: 8914483 1 Application Topical two times a day 06/12/2019 06/11/2019 Inactive apply BID for 1 week hydrocodone 10 mg-acetaminophen 325 mg tablet RxNorm: 707431 1-2 Tablet(s) PO QID as needed for pain MUST LAST 30 DAYS 05/28/2019 06/26/2019 Inactiv e (Response to an electronic controlled substance refill request - [facility] [id number]) baclofen 20 mg tablet RxNorm: 039592 1 Tablet(s) PO TID as needed for muscle spasm 05/19/2019 05/27/2019 Inactive gabapentin 300 mg capsule RxNorm: 168507 1 Capsule(s) PO QHS 201805/27/2019 Inactive lisinopril 20 mg tablet RxNorm: 234324 1 Tablet(s) PO Q D TAKE ONE TABLET BY MOUTH DAILY, REPLACES 10 MG DOSE 05/19/2019 06/23/2019 Inactive doxepin 25 mg capsule RxNorm: 2760758 TAKE ONE CAPSULE B Y MOUTH EVERY NIGHT AT BEDTIME NEEDED FOR SLEEP 05/16/2019 06/14/2019 Inactive lisinopril 20 mg tablet RxNorm: 650064 TAKE ONE TABLET BY MOUTH DAILY, REPLACES 10 MG DOSE 05/16/2019 05/18/2019 Inactive Singulair 10 mg tablet RxNorm: 493176 TAKE ONE TABLET BY MOUTH JOSÉ Y 05/16/2019 06/14/2019 Inactive gabapentin 300 mg capsule RxNorm: 185352 1 Capsule(s) PO QHS 201805/04/2019 Inactive estropipate 1.5 mg tablet RxNorm: 143699 1 Tablet(s) PO QD 05/05/2005/27/2019 Inactive estropipate 1.5 mg tablet RxNorm: 389438 1 Tablet(s) PO QD 05/05/2005/04/2019 Inactive gabapentin 300 mg capsule RxNorm: 806013 1 Capsule(s) PO QHS 201805/18/2019 Inactive hydrocodone 10 mg-acetaminophen 325 mg tablet RxNorm: 387348 1-2 Tablet(s) PO QID as needed for pain MUST LAST 30 DAYS 04/25/2019 05/24/2019 Inactiv e (Response to an electronic controlled substance refill request - RxReferenceNumber: [id number]) metoprolol tartrate 100 mg tablet RxNorm: 740313 TAKE O NE TABLET BY MOUTH TWICE A DAY 04/24/2019 06/22/2019 Inactive cyclobenzaprine 10 mg tablet RxNorm: 284403 TAKE ONE TA BLET BY MOUTH THREE TIMES A DAY NEEDED FOR MUSCLE SPASMS 04/24/2019 05/18/2019 Inactive Lyrica 75 mg capsule RxNorm: 438129 1 Capsule(s) PO QHS 03/25/2019 Inactive duloxetine 60 mg capsule,delayed release RxNorm: 503759 TAKE ONE CAPSULE BY MOUTH DAILY 03/21/2019 05/19/2019 Inactive triamterene 75 mg-hydrochlorothiazide 50 mg tablet RxNorm: 3 36149 TAKE ONE TABLET BY MOUTH DAILY 03/21/2019 05/19/2019 Inactive Klor-Con 8 mEq tablet,extended release RxNorm: 344373 T FARRUKH ONE TABLET BY MOUTH TWICE A DAY 03/21/2019 09/18/2019 Inactive Lipitor 10 mg tablet RxNorm: 711914 TAKE ONE TABLET BY MOUTH AT BEDTIME 03/21/2019 09/10/2019 Inactive clonidine HCl 0.1 mg tablet RxNorm: 838438 TAKE ONE TAB LET BY MOUTH FOUR TIMES A DAY 03/21/2019 05/19/2019 Inactive allopurinol 300 mg tablet RxNorm: 960818 TAKE ONE TABLET BY LOPEZ TH DAILY 03/21/2019 05/19/2019 Inactive hydrocodone 10 mg-acetaminophen 325 mg tablet RxNorm: 149957 1-2 Tablet(s) PO QID as needed for pain MUST LAST 30 DAYS 02/28/2019 03/29/2019 Inactiv e (Response to an electronic controlled substance refill request - RxReferenceNumber: [id number]) furosemide 40 mg tablet RxNorm: 455815 TAKE ONE TABLET BY MOUTH EVERY MORNING NEEDED FOR EDEMA . TAKE WITH POTASSIUM 02/21/2019 03/22/2019 Inactive cyclobenzaprine 10 mg tablet RxNorm: 595427 TAKE ONE TA BLET BY MOUTH THREE TIMES A DAY NEEDED FOR MUSCLE SPASMS 02/21/2019 04/21/2019 Inactive lisinopril 20 mg tablet RxNorm: 900606 TAKE ONE TABLET BY MOUTH DAILY, REPLACES 10 MG DOSE 02/21/2019 05/15/2019 Inactive doxepin 25 mg capsule RxNorm: 7927328 TAKE ONE CAPSULE B Y MOUTH EVERY NIGHT AT BEDTIME NEEDED FOR SLEEP 02/21/2019 05/15/2019 Inactive nystatin 100,000 unit/gram topical cream RxNorm: 635513 APPLY TO AFFECTED AREA(S) TWO TIMES A DAY 02/21/2019 03/22/2019 Inactive estradiol 1 mg tablet RxNorm: 914059 2 Tablet(s) PO QD replaces premarin 01/22/2019 05/04/2019 Inactive lisinopril 20 mg tablet RxNorm: 568831 TAKE ONE TABLET BY MOUTH DAILY, REPLACES 10 MG DOSE 01/20/2019 02/18/2019 Inactive cyclobenzaprine 10 mg tablet RxNorm: 839346 TAKE ONE TA BLET BY MOUTH THREE TIMES A DAY NEEDED FOR MUSCLE SPASMS 01/20/2019 02/18/2019 Inactive metoprolol tartrate 100 mg tablet RxNorm: 371423 TAKE O NE TABLET BY MOUTH TWICE A DAY 01/20/2019 02/18/2019 Inactive cyclobenzaprine 10 mg tablet RxNorm: 048567 TAKE ONE TA BLET BY MOUTH THREE TIMES A DAY NEEDED FOR MUSCLE SPASMS 12/19/2018 01/17/2019 Inactive lisinopril 20 mg tablet RxNorm: 014807 TAKE ONE TABLET BY MOUTH DAILY, REPLACES 10 MG DOSE 12/19/2018 01/17/2019 Inactive duloxetine 60 mg capsule,delayed release RxNorm: 409034 TAKE ONE CAPSULE BY MOUTH DAILY 12/19/2018 01/17/2019 Inactive Lipitor 10 mg tablet RxNorm: 093785 TAKE ONE TABLET BY MOUTH AT BEDTIME 12/19/2018 01/17/2019 Inactive cyclobenzaprine 10 mg tablet RxNorm: 669520 1 Tablet(s) PO TID as needed for muscle spasm 11/19/2018 12/18/2018 Inactive Singulair 10 mg tablet RxNorm: 122877 1 Tablet(s) PO QD 11/19/2018 Inactive lisinopril 20 mg tablet RxNorm: 251392 TAKE ONE TABLET BY MOUTH DAILY, REPLACES 10 MG DOSE 11/15/2018 12/18/2018 Inactive hydrocodone 10 mg-acetaminophen 325 mg tablet RxNorm: 420215 1-2 Tablet(s) PO QID as needed for pain MUST LAST 30 DAYS 11/13/2018 12/12/2018 Inactiv e (Response to an electronic controlled substance refill request - RxReferenceNumber: [id number]) nystatin 100,000 unit/gram topical cream RxNorm: 543959 APPLY TO AFFECTED AREA(S) TWO TIMES A DAY 10/23/2018 11/06/2018 Inactive lisinopril 20 mg tablet RxNorm: 774798 1 Tablet(s) PO QD replac es 10mg dose 10/18/2018 11/14/2018 Inactive hydrocodone 10 mg-acetaminophen 325 mg tablet RxNorm: 529370 1-2 Tablet(s) QID as needed for pain MUST LAST 30 DAYS 10/08/2018 11/06/2018 Inactive (Response to an electronic controlled substance refill request - RxReferenceNumber: [id number]) lisinopril 10 mg tablet RxNorm: 884807 1 Tablet(s) PO QD 10/03/2018 0 01/21/2019 Inactive Celebrex 200 mg capsule RxNorm: 840559 TAKE ONE CAPSULE BY MOUT H TWICE A DAY 09/30/2018 05/04/2019 Inactive cyclobenzaprine 10 mg tablet RxNorm: 448823 TAKE ONE TA BLET BY MOUTH THREE TIMES A DAY NEEDED FOR MUSCLE SPASMS 09/30/2018 11/18/2018 Inactive doxepin 25 mg capsule RxNorm: 4921135 TAKE ONE CAPSULE B Y MOUTH EVERY NIGHT AT BEDTIME NEEDED 09/05/2018 10/16/2018 Inactive omeprazole 40 mg capsule,delayed release RxNorm: 761580 TAKE ONE CAPSULE BY MOUTH DAILY 09/05/2018 01/21/2019 Inactive furosemide 40 mg tablet RxNorm: 541212 TAKE ONE TABLET BY MOUTH EVERY MORNING NEEDED FOR EDEMA . TAKE WITH POTASSIUM 09/05/2018 11/03/2018 Inactive phentermine 37.5 mg tablet RxNorm: 481821 1 Tablet(s) PO QAM 201701/21/2019 Inactive doxepin 25 mg capsule RxNorm: 4417810 1 Capsule(s) PO QH S as needed for sleep TAKE ONE CAPSULE BY MOUTH EVERY NIGHT AT BEDTIME NEEDED 08/27/2018 09/04/2018 Inactive Keflex 500 mg capsule RxNorm: 002431 1 Capsule(s) PO TID 08/09/2018 1 10/19/2017 Inactive Diflucan 100 mg tablet RxNorm: 535946 1 Tablet(s) PO QD 08/09/2018 Inactive Premarin 1.25 mg tablet RxNorm: 403791 2 Tablet(s) PO QD 08/09/2018 0 05/04/2019 Inactive Zofran ODT 4 mg disintegrating tablet RxNorm: 119198 1 Tablet(s) PO Q4H as needed for nausea 08/09/2018 01/21/2019 Inactive metoprolol tartrate 100 mg tablet RxNorm: 518300 TAKE O NE TABLET BY MOUTH TWICE A DAY 2018 10/04/2018 Inactive doxepin 25 mg capsule RxNorm: 8667029 TAKE ONE CAPSULE B Y MOUTH EVERY NIGHT AT BEDTIME NEEDED 2018 08/26/2018 Inactive cyclobenzaprine 10 mg tablet RxNorm: 547102 TAKE ONE TA BLET BY MOUTH THREE TIMES A DAY NEEDED FOR MUSCLE SPASMS 2018 09/29/2018 Inactive hydrocodone 10 mg-acetaminophen 325 mg tablet RxNorm: 649404 1-2 Tablet(s) QID as needed for pain MUST LAST 30 DAYS 07/29/2018 08/27/2018 Inactive (Response to an electronic controlled substance refill request - RxReferenceNumber: [id number]) nystatin 100,000 unit/gram topical powder RxNorm: 021067 Applic ation TOP BID 07/22/2018 08/04/2018 Inactive doxepin 25 mg capsule RxNorm: 2492819 1 Capsule(s) PO QHS as needed 07/22/2018 08/05/2018 Inactive triamterene 75 mg-hydrochlorothiazide 50 mg tablet RxNorm: 3 31296 TAKE ONE TABLET BY MOUTH DAILY 07/05/2018 10/02/2018 Inactive duloxetine 60 mg capsule,delayed release RxNorm: 245267 TAKE ONE CAPSULE BY MOUTH DAILY 07/05/2018 09/02/2018 Inactive Klor-Con 8 mEq tablet,extended release RxNorm: 918251 T FARRUKH ONE TABLET BY MOUTH TWICE A DAY 07/05/2018 10/02/2018 Inactive Lipitor 10 mg tablet RxNorm: 820156 TAKE ONE TABLET BY MOUTH AT BEDTIME 07/05/2018 09/02/2018 Inactive allopurinol 300 mg tablet RxNorm: 414253 TAKE ONE TABLET BY LOPEZ TH DAILY 07/05/2018 10/02/2018 Inactive clonidine HCl 0.1 mg tablet RxNorm: 574672 TAKE ONE TAB LET BY MOUTH FOUR TIMES A DAY 07/05/2018 10/02/2018 Inactive hydrocodone 10 mg-acetaminophen 325 mg tablet RxNorm: 112890 1-2 Tablet(s) QID as needed for pain MUST LAST 30 DAYS 06/28/2018 07/27/2018 Inactive (Response to an electronic controlled substance refill request - RxReferenceNumber: [id number]) MediHoney (calcium alginate-honey) 4" X 5" bandage RxNorm: 1 Application TOP QD 06/17/2018 06/26/2018 Inactive honey-hydrocolloid dressing 4" X 5" RxNorm: 1 Application TOP QD 06/17/2018 07/16/2018 Inactive furosemide 40 mg tablet RxNorm: 309111 TAKE ONE TABLET BY MOUTH EVERY MORNING NEEDED FOR EDEMA . TAKE WITH POTASSIUM 06/10/2018 07/09/2018 Inactive This is a refill request. hydrocodone 10 mg-acetaminophen 325 mg tablet RxNorm: 039820 1-2 Tablet(s) QID as needed for pain MUST LAST 30 DAYS 05/30/2018 06/27/2018 Inactive (Response to an electronic controlled substance refill request - RxReferenceNumber: [id number]) acyclovir 800 mg tablet RxNorm: 153165 1 Tablet(s) PO 5x day 201705/22/2018 Inactive Premarin 1.25 mg tablet RxNorm: 912300 1-2 Tablet(s) PO QD 05/15/20 18 07/13/2018 Inactive cyclobenzaprine 10 mg tablet RxNorm: 534968 1 Tablet(s) PO TID as needed for muscle spasm 05/09/2018 05/08/2018 Inactive Medrol (Dustin) 4 mg tablets in a dose pack RxNorm: 427031 Tablet(s) PO As Directed 05/02/2018 06/16/2018 Inactive hydrocodone 10 mg-acetaminophen 325 mg tablet RxNorm: 575504 1-2 Tablet(s) QID as needed for pain MUST LAST 30 DAYS 04/30/2018 05/29/2018 Inactive (Response to an electronic controlled substance refill request - RxReferenceNumber: [id number]) duloxetine 60 mg capsule,delayed release RxNorm: 628267 TAKE ONE CAPSULE BY MOUTH DAILY 04/16/2018 05/15/2018 Inactive Celebrex 200 mg capsule RxNorm: 565250 TAKE ONE CAPSULE BY MOUT H TWICE A DAY 04/16/2018 06/14/2018 Inactive Singulair 10 mg tablet RxNorm: 867236 TAKE ONE TABLET BY MOUTH JOSÉ Y 04/16/2018 11/19/2018 Inactive Lipitor 10 mg tablet RxNorm: 204281 TAKE ONE TABLET BY MOUTH AT BEDTIME 04/16/2018 05/15/2018 Inactive hydrocodone 10 mg-acetaminophen 325 mg tablet RxNorm: 241418 1-2 Tablet(s) QID as needed for pain MUST LAST 30 DAYS 03/29/2018 04/27/2018 Inactive (Response to an electronic controlled substance refill request - RxReferenceNumber: [id number]) cyclobenzaprine 10 mg tablet RxNorm: 668001 1 Tablet(s) PO TID as needed for muscle spasm 03/18/2018 05/09/2018 Inactive omeprazole 40 mg capsule,delayed release RxNorm: 183085 1 Capsu le(s) PO QD 02/26/2018 08/24/2018 Inactive hydrocodone 10 mg-acetaminophen 325 mg tablet RxNorm: 883331 1-2 Tablet(s) QID as needed for pain MUST LAST 30 DAYS 02/26/2018 03/27/2018 Inactive (Response to an electronic controlled substance refill request - RxReferenceNumber: [id number]) metoprolol tartrate 100 mg tablet RxNorm: 419766 1 Tablet(s) PO BID 02/18/2018 08/05/2018 Inactive Lyrica 75 mg capsule RxNorm: 877555 1 Capsule(s) PO QHS 01/30/2018 Inactive phentermine 37.5 mg tablet RxNorm: 341619 1 Tablet(s) PO QAM 201706/16/2018 Inactive hydrocodone 10 mg-acetaminophen 325 mg tablet RxNorm: 174382 1-2 Tablet(s) QID as needed for pain MUST LAST 30 DAYS 01/29/2018 02/25/2018 Inactive (Response to an electronic controlled substance refill request - RxReferenceNumber: [id number]) Klor-Con 8 mEq tablet,extended release RxNorm: 898450 1 Tablet( s) PO BID 01/14/2018 07/04/2018 Inactive allopurinol 300 mg tablet RxNorm: 462458 1 Tablet(s) PO QD 01/15/2007/04/2018 Inactive Lipitor 10 mg tablet RxNorm: 236978 1 Tablet(s) PO QHS 01/14/201812/2017 Inactive triamterene 75 mg-hydrochlorothiazide 50 mg tablet RxNorm: 3 86197 1 Tablet(s) PO QD 01/14/2018 07/04/2018 Inactive hydrocodone 10 mg-acetaminophen 325 mg tablet RxNorm: 825819 1-2 Tablet(s) QID as needed for pain MUST LAST 30 DAYS 12/27/2017 01/25/2018 Inactive (Response to an electronic controlled substance refill request - RxReferenceNumber: [id number]) Onglyza 5 mg tablet RxNorm: 551798 1 Tablet(s) PO QD 12/18/201701/29 Inactive metformin 500 mg tablet RxNorm: 848107 1 Tablet(s) PO BID 12/11/2017 12/10/2017 Inactive metformin 500 mg tablet RxNorm: 696455 1 Tablet(s) PO BID 12/11/2017 12/17/2017 Inactive furosemide 40 mg tablet RxNorm: 127689 1 Tablet(s) PO Q AM prn edema--take with potassium 12/11/2017 06/08/2018 Inactive cyclobenzaprine 10 mg tablet RxNorm: 729741 1 Tablet(s) PO TID as needed for muscle spasm 12/11/2017 03/18/2018 Inactive hydrocodone 10 mg-acetaminophen 325 mg tablet RxNorm: 389295 1-2 Tablet(s) QID as needed for pain MUST LAST 30 DAYS 10/23/2017 11/21/2017 Inactive (Response to an electronic controlled substance refill request - RxReferenceNumber: [id number]) Lipitor 10 mg tablet RxNorm: 922358 1 Tablet(s) PO QHS 10/16/201703/2018 Inactive cyclobenzaprine 10 mg tablet RxNorm: 992241 1 Tablet(s) PO TID as needed for muscle spasm 10/09/2017 12/10/2017 Inactive hydroxyzine HCl 25 mg tablet RxNorm: 877260 1 Tablet(s) PO BID as needed for anxiety 09/20/2017 01/29/2018 Inactive Effexor XR 75 mg capsule,extended release RxNorm: 069328 1 Caps ule(s) PO QD 09/20/2017 01/29/2018 Inactive metoprolol tartrate 100 mg tablet RxNorm: 333024 1 Tablet(s) PO BID 08/20/2017 02/18/2018 Inactive baclofen 20 mg tablet RxNorm: 212141 1 Tablet(s) PO TID as needed for muscle spasm 08/20/2017 01/21/2019 Inactive clonidine HCl 0.1 mg tablet RxNorm: 890024 1 Tablet(s) PO QID 08/2005/16/2018 Inactive Seroquel 25 mg tablet RxNorm: 242629 1 Tablet(s) PO QHS 08/17/2017 Inactive Seroquel 25 mg tablet RxNorm: 458846 1 Tablet(s) PO QHS 08/17/2017 Inactive Diflucan 100 mg tablet RxNorm: 929504 TAKE ONE TABLET BY MOUTH JOSÉ Y 07/25/2017 08/07/2017 Inactive hydrocodone 10 mg-acetaminophen 325 mg tablet RxNorm: 488420 1-2 Tablet(s) QID as needed for pain MUST LAST 30 DAYS 07/19/2017 08/17/2017 Inactive (Response to an electronic controlled substance refill request - RxReferenceNumber: [id number]) clindamycin 300 mg capsule RxNorm: 879166 1 Capsule(s) PO TID 07/1907/28/2017 Inactive clotrimazole-betamethasone 1 %-0.05 % topical cream RxNorm: 734453 Application TOP BID to elbow rash 07/19/2017 06/16/2018 Inactive Singulair 10 mg tablet RxNorm: 317738 Tablet(s) TAKE ONE TABLET BY MOUTH DAILY 07/18/2017 04/13/2018 Inactive triamterene 75 mg-hydrochlorothiazide 50 mg tablet RxNorm: 3 62032 1 Tablet(s) PO QD 07/18/2017 01/14/2018 Inactive Celebrex 200 mg capsule RxNorm: 014017 Capsule(s) TAKE ONE CAPSULE BY MOUTH TWICE A DAY 07/18/2017 10/15/2017 Inactive hydrocodone 10 mg-acetaminophen 325 mg tablet RxNorm: 404627 1-2 Tablet(s) QID as needed for pain MUST LAST 30 DAYS 06/19/2017 07/18/2017 Inactive (Response to an electronic controlled substance refill request - RxReferenceNumber: [id number]) hydrocodone 10 mg-acetaminophen 325 mg tablet RxNorm: 966395 1-2 Tablet(s) QID as needed for pain MUST LAST 30 DAYS 06/19/2017 06/18/2017 Inactive (Response to an electronic controlled substance refill request - RxReferenceNumber: [id number]) baclofen 20 mg tablet RxNorm: 502359 1 Tablet(s) PO TID as needed for muscle spasm 06/18/2017 08/20/2017 Inactive Medrol (Dustin) 4 mg tablets in a dose pack RxNorm: 738199 Tablet(s) PO As Directed 06/05/2017 07/18/2017 Inactive omeprazole 40 mg capsule,delayed release RxNorm: 779853 1 Capsu le(s) PO QD 04/20/2017 10/16/2017 Inactive Premarin 1.25 mg tablet RxNorm: 681273 1-2 Tablet(s) PO QD 04/11/20 17 05/15/2018 Inactive duloxetine 60 mg capsule,delayed release RxNorm: 496573 1 Capsu le(s) PO QD 04/11/2017 09/19/2017 Inactive furosemide 40 mg tablet RxNorm: 441242 1 Tablet(s) PO Q AM prn edema--take with potassium 04/11/2017 12/11/2017 Inactive Klor-Con 8 mEq tablet,extended release RxNorm: 380126 1 Tablet( s) PO BID 04/11/2017 01/14/2018 Inactive Lipitor 10 mg tablet RxNorm: 643300 1 Tablet(s) PO QHS 04/11/201702/2018 Inactive amlodipine 5 mg-benazepril 20 mg capsule RxNorm: 082848 1 Capsu le(s) PO QD 04/11/2017 01/29/2018 Inactive allopurinol 300 mg tablet RxNorm: 272366 1 Tablet(s) PO QD 04/11/20 17 01/14/2018 Inactive clonidine HCl 0.1 mg tablet RxNorm: 386970 1 Tablet(s) PO QID 04/0508/19/2017 Inactive baclofen 20 mg tablet RxNorm: 290531 1 Tablet(s) PO TID as needed for muscle spasm 04/02/2017 06/18/2017 Inactive Premarin 1.25 mg tablet RxNorm: 620229 1-2 Tablet(s) PO QD 03/20/20 17 04/10/2017 Inactive hydrocodone 10 mg-acetaminophen 325 mg tablet RxNorm: 226983 1-2 Tablet(s) QID as needed for pain MUST LAST 30 DAYS 03/14/2017 01/21/2019 Inactive (Response to an electronic controlled substance refill request - RxReferenceNumber: [id number]) metoprolol tartrate 100 mg tablet RxNorm: 531334 1 Tablet(s) PO BID 02/12/2017 08/20/2017 Inactive hydrocodone 10 mg-acetaminophen 325 mg tablet RxNorm: 858710 1-2 Tablet(s) QID as needed for pain MUST LAST 30 DAYS 02/08/2017 03/09/2017 Inactive (Response to an electronic controlled substance refill request - RxReferenceNumber: [id number]) metoprolol tartrate 100 mg tablet RxNorm: 417960 TAKE O NE TABLET BY MOUTH TWICE A DAY 01/11/2017 02/12/2017 Inactive metoprolol tartrate 100 mg tablet RxNorm: 530324 1 Tablet(s) PO BID 12/18/2016 12/17/2016 Inactive metoprolol tartrate 100 mg tablet RxNorm: 441523 1 Tablet(s) PO BID 12/18/2016 01/10/2017 Inactive furosemide 40 mg tablet RxNorm: 602725 1 Tablet(s) PO Q AM prn edema--take with potassium 12/13/2016 02/10/2017 Inactive amitriptyline 100 mg tablet RxNorm: 233359 1 Tablet(s) PO QHS 11/2812/12/2016 Inactive baclofen 20 mg tablet RxNorm: 078847 1 Tablet(s) PO TID as needed for muscle spasm 11/14/2016 04/01/2017 Inactive triamterene 75 mg-hydrochlorothiazide 50 mg tablet RxNorm: 3 16761 1 Tablet(s) PO QD 11/14/2016 11/13/2016 Inactive metolazone 2.5 mg tablet RxNorm: 491499 TAKE ONE TABLET BY MOUTH DAILY NEEDED FOR EDEMA 11/14/2016 12/12/2016 Inactive triamterene 75 mg-hydrochlorothiazide 50 mg tablet RxNorm: 3 49414 1 Tablet(s) PO QD 11/14/2016 07/18/2017 Inactive amitriptyline 50 mg tablet RxNorm: 774265 TAKE ONE TABL ET BY MOUTH AT BEDTIME NEEDED FOR SLEEP 11/14/2016 11/27/2016 Inactive Cymbalta 60 mg capsule,delayed release RxNorm: 401424 1 Capsule (s) PO QHS 11/14/2016 12/12/2016 Inactive clonidine HCl 0.1 mg tablet RxNorm: 972503 1 Tablet(s) PO QID 11/1304/04/2017 Inactive amitriptyline 50 mg tablet RxNorm: 506755 1 Tablet(s) P O QHS as needed for sleep 11/01/2016 11/27/2016 Inactive duloxetine 60 mg capsule,delayed release RxNorm: 279256 TAKE ONE CAPSULE BY MOUTH DAILY 10/20/2016 01/17/2017 Inactive allopurinol 300 mg tablet RxNorm: 063206 TAKE ONE TABLET BY LOPEZ TH DAILY 10/20/2016 01/16/2017 Inactive Lyrica 75 mg capsule RxNorm: 045882 TAKE ONE CAPSULE BY MOUTH EVERY NIGHT AT BEDTIME 10/20/2016 12/10/2016 Inactive Klor-Con 8 mEq tablet,extended release RxNorm: 660722 T FARRUKH ONE TABLET BY MOUTH TWICE A DAY 10/20/2016 01/17/2017 Inactive Celebrex 200 mg capsule RxNorm: 445573 TAKE ONE CAPSULE BY MOUT H TWICE A DAY 10/20/2016 07/18/2017 Inactive Bystolic 10 mg tablet RxNorm: 784652 TAKE ONE TABLET BY MOUTH EVERY NIGHT AT BEDTIME 10/20/2016 12/17/2016 Inactive amlodipine 5 mg-benazepril 20 mg capsule RxNorm: 909663 TAKE ONE CAPSULE BY MOUTH EVERY NIGHT AT BEDTIME -- TO REPLACE AMLODOPINE 10/20/20162016 Inactive Lipitor 10 mg tablet RxNorm: 388468 TAKE ONE TABLET BY MOUTH EVERY NIGHT AT BEDTIME 10/20/2016 01/17/2017 Inactive alprazolam 0.5 mg tablet RxNorm: 091826 3 Tablet(s) PO QHS as needed for sleep/anxiety 09/20/2016 10/31/2016 Inactive Tamiflu 75 mg capsule RxNorm: 402181 1 Capsule(s) PO QD 09/19/2016 Inactive Lyrica 75 mg capsule RxNorm: 618179 1 Capsule(s) PO QHS 09/19/2016 Inactive prednisone 20 mg tablet RxNorm: 013785 1 Tablet(s) PO QD 08/10/2016 1 10/17/2015 Inactive doxycycline hyclate 100 mg capsule RxNorm: 5518422 1 Capsule(s) PO BID 08/10/2016 08/19/2016 Inactive Medrol (Dustin) 4 mg tablets in a dose pack RxNorm: 668486 Tablet(s) PO As Directed 07/31/2016 08/22/2016 Inactive Singulair 10 mg tablet RxNorm: 289126 TAKE ONE TABLET BY MOUTH JOSÉ Y 07/27/2016 07/18/2017 Inactive hydrocodone 10 mg-acetaminophen 325 mg tablet RxNorm: 823142 1-2 Tablet(s) QID as needed for pain MUST LAST 30 DAYS 07/26/2016 08/24/2016 Inactive (Response to an electronic controlled substance refill request - RxReferenceNumber: [id number]) alprazolam 0.5 mg tablet RxNorm: 833697 3 Tablet(s) PO QHS as needed for anxiety or sleep 07/26/2016 09/20/2016 Inactive clindamycin 300 mg capsule RxNorm: 681777 1 Capsule(s) PO TID 07/2007/29/2016 Inactive Diflucan 100 mg tablet RxNorm: 702023 1 Tablet(s) PO QD 07/20/2016 Inactive Levaquin 500 mg tablet RxNorm: 880866 1 Tablet(s) PO QD 07/17/2016 Inactive Levaquin 500 mg tablet RxNorm: 591519 1 Tablet(s) PO QD 07/10/2016 Inactive Levaquin 500 mg tablet RxNorm: 087349 1 Tablet(s) PO QD 07/10/2016 Inactive mupirocin 2 % topical ointment RxNorm: 638713 TOP Apply topically to affected areas twice daily 07/06/2016 09/18/2016 Inactive Singulair 10 mg tablet RxNorm: 766500 TAKE ONE TABLET BY MOUTH JOSÉ Y 06/21/2016 01/21/2019 Inactive alprazolam 0.5 mg tablet RxNorm: 863473 TAKE THREE TABL ETS BY MOUTH AT BEDTIME NEEDED FOR SLEEP OR STRESS 05/22/2016 06/20/2016 Inactive triamterene 75 mg-hydrochlorothiazide 50 mg tablet RxNorm: 3 04653 1 Tablet(s) PO QD 04/26/2016 10/21/2016 Inactive Premarin 1.25 mg tablet RxNorm: 815938 1-2 Tablet(s) PO QD 04/26/20 16 03/20/2017 Inactive Klor-Con 8 mEq tablet,extended release RxNorm: 604586 1 Tablet( s) PO BID 04/26/2016 10/19/2016 Inactive Celebrex 200 mg capsule RxNorm: 242962 1 Capsule(s) PO BID TAKE ONE CAPSULE BY MOUTH EVERY DAY 04/26/2016 10/19/2016 Inactive Lipitor 10 mg tablet RxNorm: 073664 1 Tablet(s) PO QHS 04/26/201605/2017 Inactive allopurinol 300 mg tablet RxNorm: 086654 1 Tablet(s) PO QD TAKE ONE TABLET BY MOUTH EVERY DAY 04/26/2016 10/19/2016 Inactive amlodipine 5 mg-benazepril 20 mg capsule RxNorm: 025130 1 Capsule(s) PO QHS replaces amlodopine 04/26/2016 10/19/2016 Inactive duloxetine 60 mg capsule,delayed release RxNorm: 812509 1 Capsu le(s) PO QD 04/26/2016 10/19/2016 Inactive Bystolic 10 mg tablet RxNorm: 707976 1 Tablet(s) PO QHS 04/26/2016 Inactive Singulair 10 mg tablet RxNorm: 633282 1 Tablet(s) PO QD TAKE ONE TABLET BY MOUTH DAILY 04/26/2016 06/20/2016 Inactive clonidine HCl 0.1 mg tablet RxNorm: 832742 1 Tablet(s) PO QID 04/2610/22/2016 Inactive hydrocodone 10 mg-acetaminophen 325 mg tablet RxNorm: 678073 1-2 Tablet(s) QID as needed for pain TAKE ONE TO TWO TABLETS BY MOUTH FOUR TIMES A DAY . MUST LAST 30 DAYS 03/31/2016 04/29/2016 Inactive (Response to an electronic controlled substance refill request - RxReferenceNumber: [id number]) Klor-Con 8 mEq tablet,extended release RxNorm: 192407 T FARRUKH ONE TABLET BY MOUTH TWICE A DAY 03/24/2016 04/22/2016 Inactive prednisone 20 mg tablet RxNorm: 390597 1 Tablet(s) PO QD 03/09/2016 0 03/08/2016 Inactive prednisone 20 mg tablet RxNorm: 128694 1 Tablet(s) PO QD 03/09/2016 0 03/13/2016 Inactive alprazolam 0.5 mg tablet RxNorm: 421520 3 Tablet(s) PO QHS as needed for sleep/stress 03/02/2016 01/21/2019 Inactive mupirocin 2 % topical ointment RxNorm: 753357 TOP twice daily to affected areas of face and neck 02/21/2016 04/25/2016 Inactive clonidine HCl 0.1 mg tablet RxNorm: 396137 TAKE ONE TAB LET BY MOUTH FOUR TIMES A DAY 02/15/2016 03/15/2016 Inactive clonidine HCl 0.1 mg tablet RxNorm: 311254 1 Tablet(s) PO QID 02/1404/25/2016 Inactive Premarin 1.25 mg tablet RxNorm: 632433 1-2 Tablet(s) PO QD 02/15/20 16 03/15/2016 Inactive Klor-Con 8 mEq tablet,extended release RxNorm: 462233 T FARRUKH ONE TABLET BY MOUTH TWICE A DAY 02/15/2016 03/15/2016 Inactive potassium chloride ER 20 mEq tablet,extended release(part/cr yst) RxNorm: 678913 2 Tablet(s) PO BID 02/15/2016 03/15/2016 Inactive Macrobid 100 mg capsule RxNorm: 608084 1 Capsule(s) PO BID 01/24/20 16 01/30/2016 Inactive prednisone 20 mg tablet RxNorm: 809440 Take 3tabs PO QD x 2 days, then 2 tabs PO QD x 2 days, then 1 tab PO QD x 2 days, then 1/2 tab PO QDy x 2 days 12/23/2015 04/25/2016 Inactive Klor-Con 8 mEq tablet,extended release RxNorm: 419454 T FARRUKH ONE TABLET BY MOUTH TWICE A DAY 12/20/2015 02/14/2016 Inactive alprazolam 1 mg tablet RxNorm: 438660 1 1/2 Tablet(s) PO QHS 201501/23/2016 Inactive nystatin 100,000 unit/gram topical cream RxNorm: 085339 APPLY TO AFFECTED AREA(S) TWO TIMES A DAY 11/30/2015 12/14/2015 Inactive Singulair 10 mg tablet RxNorm: 332185 TAKE ONE TABLET BY MOUTH JOSÉ Y 11/18/2015 04/25/2016 Inactive allopurinol 300 mg tablet RxNorm: 787417 1 Tablet(s) PO QD TAKE ONE TABLET BY MOUTH EVERY DAY 10/26/2015 04/22/2016 Inactive Singulair 10 mg tablet RxNorm: 954429 TAKE ONE TABLET BY MOUTH JOSÉ Y 10/26/2015 11/17/2015 Inactive duloxetine 60 mg capsule,delayed release RxNorm: 307451 1 Capsu le(s) PO QD 10/26/2015 04/22/2016 Inactive triamterene 75 mg-hydrochlorothiazide 50 mg tablet RxNorm: 3 95870 1 Tablet(s) PO QD 10/26/2015 11/14/2016 Inactive potassium chloride ER 20 mEq tablet,extended release(part/cr yst) RxNorm: 661095 2 Tablet(s) PO BID 10/26/2015 02/14/2016 Inactive Lipitor 10 mg tablet RxNorm: 587478 1 Tablet(s) PO QHS 10/26/2015 Inactive amlodipine 5 mg-benazepril 20 mg capsule RxNorm: 035994 1 Capsule(s) PO QHS replaces amlodopine 10/26/2015 04/22/2016 Inactive Bystolic 10 mg tablet RxNorm: 106833 1 Tablet(s) PO QHS 10/26/2015 Inactive amlodipine 5 mg-benazepril 20 mg capsule RxNorm: 395482 1 Capsule(s) PO QHS replaces amlodopine 10/06/2015 10/25/2015 Inactive amlodipine 5 mg tablet RxNorm: 185193 1 Tablet(s) PO QHS 09/30/2015 0 04/25/2016 Inactive metolazone 2.5 mg tablet RxNorm: 416654 TAKE ONE TABLET BY MOUTH DAILY NEEDED FOR EDEMA 09/30/2015 01/21/2019 Inactive duloxetine 60 mg capsule,delayed release RxNorm: 497836 1 Capsu le(s) PO QD 09/30/2015 10/25/2015 Inactive cephalexin 500 mg capsule RxNorm: 229724 1 Capsule(s) PO BID 201509/23/2015 Inactive mupirocin 2 % topical ointment RxNorm: 715975 TOP twice daily to affected areas of face and neck 09/14/2015 02/20/2016 Inactive baclofen 20 mg tablet RxNorm: 577947 1 Tablet(s) PO TID as needed for muscle spasm 09/01/2015 11/14/2016 Inactive clonidine HCl 0.1 mg tablet RxNorm: 148421 1 Tablet(s) PO QID 09/0102/14/2016 Inactive alprazolam 1 mg tablet RxNorm: 675746 1 1/2 Tablet(s) PO QHS 201409/09/2015 Inactive baclofen 20 mg tablet RxNorm: 830413 1 Tablet(s) PO TID as needed for muscle spasm 07/23/2015 09/01/2015 Inactive omeprazole 40 mg capsule,delayed release RxNorm: 259561 1 Capsu le(s) PO QD 07/23/2015 04/25/2016 Inactive alprazolam 1 mg tablet RxNorm: 524001 1 1/2 Tablet(s) PO QHS 201408/10/2015 Inactive Bystolic 10 mg tablet RxNorm: 354998 1 Tablet(s) PO BID 06/24/2015 Inactive allopurinol 300 mg tablet RxNorm: 579747 1 Tablet(s) PO QD TAKE ONE TABLET BY MOUTH EVERY DAY 06/23/2015 10/20/2015 Inactive alprazolam 1 mg tablet RxNorm: 984192 1 1/2 Tablet(s) PO QHS 201407/06/2015 Inactive clonidine HCl 0.1 mg tablet RxNorm: 935101 1 Tablet(s) PO QID 06/0209/01/2015 Inactive clonidine HCl 0.1 mg tablet RxNorm: 327862 1 Tablet(s) PO QID 06/0206/01/2015 Inactive Cymbalta 60 mg capsule,delayed release RxNorm: 538621 1 Capsule (s) PO QHS 06/02/2015 08/30/2015 Inactive Cymbalta 60 mg capsule,delayed release RxNorm: 999355 1 Capsule (s) PO QHS 06/02/2015 06/01/2015 Inactive clonidine HCl 0.1 mg tablet RxNorm: 806325 1 Tablet(s) PO TID 05/3106/01/2015 Inactive replaces 0.2mg dose metolazone 2.5 mg tablet RxNorm: 273805 TAKE ONE TABLET BY MOUTH DAILY NEEDED FOR EDEMA 05/21/2015 06/19/2015 Inactive Singulair 10 mg tablet RxNorm: 135709 TAKE ONE TABLET BY MOUTH JOSÉ Y 05/21/2015 10/17/2015 Inactive Cymbalta 30 mg capsule,delayed release RxNorm: 255913 1 Capsule (s) PO QHS 05/20/2015 11/14/2016 Inactive betamethasone valerate 0.1 % topical cream RxNorm: 432297 Appli cation TOP BID 05/10/2015 04/25/2016 Inactive Bactroban 2 % topical ointment RxNorm: 294248 Application TOP BID 0 05/10/2015 06/20/2015 Inactive baclofen 20 mg tablet RxNorm: 955972 1 Tablet(s) PO TID as needed 0 04/26/2015 07/23/2015 Inactive Lipitor 10 mg tablet RxNorm: 094139 1 Tablet(s) PO QHS 04/26/201508/2016 Inactive clonidine HCl 0.1 mg tablet RxNorm: 803697 1 Tablet(s) PO TID 04/2605/30/2015 Inactive replaces 0.2mg dose Klor-Con 8 mEq tablet,extended release RxNorm: 616835 1 Tablet( s) PO BID 04/26/2015 04/25/2016 Inactive metolazone 2.5 mg tablet RxNorm: 638730 1 Tablet(s) PO QD as ne eded for edema 04/26/2015 04/25/2015 Inactive triamterene 75 mg-hydrochlorothiazide 50 mg tablet RxNorm: 3 01544 1 Tablet(s) PO QD 04/26/2015 10/22/2015 Inactive Premarin 1.25 mg tablet RxNorm: 943864 1-2 Tablet(s) PO QD 04/26/20 15 10/22/2015 Inactive Bystolic 10 mg tablet RxNorm: 331160 1 Tablet(s) PO QAM TAKE ONE TABLET BY MOUTH EVERY MORNING 04/23/2015 06/23/2015 Inactive clonidine HCl 0.1 mg tablet RxNorm: 190278 1 Tablet(s) PO TID 03/2304/25/2015 Inactive replaces 0.2mg dose nystatin 100,000 unit/gram topical cream RxNorm: 032108 Applica tion TOP BID 03/23/2015 06/20/2015 Inactive baclofen 20 mg tablet RxNorm: 275685 1 Tablet(s) PO TID as needed 0 03/23/2015 04/25/2015 Inactive Premarin 1.25 mg tablet RxNorm: 733902 1-2 Tablet(s) PO QD 03/23/20 15 04/25/2015 Inactive Klor-Con 8 mEq tablet,extended release RxNorm: 329529 1 Tablet( s) PO BID 03/23/2015 04/25/2015 Inactive cefdinir 300 mg capsule RxNorm: 136702 2 Capsule(s) PO QD 03/16/2015 03/25/2015 Inactive baclofen 20 mg tablet RxNorm: 697922 1 Tablet(s) PO TID as needed 0 03/02/2015 03/22/2015 Inactive allopurinol 300 mg tablet RxNorm: 933185 1 Tablet(s) PO QD TAKE ONE TABLET BY MOUTH EVERY DAY 02/22/2015 05/22/2015 Inactive Klor-Con M20 mEq tablet,extended release RxNorm: 276073 2 Tablet(s) PO BID to use with lasix 02/22/2015 06/20/2015 Inactive clonidine HCl 0.1 mg tablet RxNorm: 798791 1 Tablet(s) PO TID 02/1903/22/2015 Inactive replaces 0.2mg dose Lipitor 10 mg tablet RxNorm: 063376 1 Tablet(s) PO QHS 01/20/201506/2015 Inactive Lipitor 10 mg tablet RxNorm: 192707 1 Tablet(s) PO QHS 01/20/2015 Inactive Singulair 10 mg tablet RxNorm: 402858 1 Tablet(s) PO QD TAKE ONE TABLET BY MOUTH EVERY DAY 11/20/2014 05/18/2015 Inactive Lipitor 10 mg tablet RxNorm: 639996 1 Tablet(s) PO QHS 11/20/201408/2015 Inactive allopurinol 300 mg tablet RxNorm: 265152 1 Tablet(s) PO QD TAKE ONE TABLET BY MOUTH EVERY DAY 11/20/2014 02/16/2015 Inactive Bystolic 10 mg tablet RxNorm: 950274 1 Tablet(s) PO QAM TAKE ONE TABLET BY MOUTH EVERY MORNING 11/20/2014 04/22/2015 Inactive Klor-Con 8 mEq tablet,extended release RxNorm: 810190 1 Tablet( s) PO BID 11/20/2014 02/17/2015 Inactive baclofen 20 mg tablet RxNorm: 280697 1 Tablet(s) PO TID as needed 0 11/20/2014 01/21/2019 Inactive baclofen 20 mg tablet RxNorm: 823318 1 Tablet(s) PO TID as needed 0 10/27/2014 11/19/2014 Inactive baclofen 20 mg tablet RxNorm: 524739 1 Tablet(s) PO TID as needed 0 10/26/2014 03/01/2015 Inactive allopurinol 300 mg tablet RxNorm: 158564 1 Tablet(s) PO QD TAKE ONE TABLET BY MOUTH EVERY DAY 10/26/2014 11/20/2014 Inactive Bystolic 10 mg tablet RxNorm: 254769 1 Tablet(s) PO QAM TAKE ONE TABLET BY MOUTH EVERY MORNING 10/26/2014 11/20/2014 Inactive clonidine HCl 0.1 mg tablet RxNorm: 234056 1 Tablet(s) PO TID 09/2805/27/2019 Inactive replaces 0.2mg dose clonidine HCl 0.1 mg tablet RxNorm: 550316 1 Tablet(s) PO TID 09/2802/18/2015 Inactive replaces 0.2mg dose baclofen 20 mg tablet RxNorm: 935910 1 Tablet(s) PO TID as needed 1 11/01/2013 08/30/2014 Inactive Lipitor 10 mg tablet RxNorm: 658517 1 Tablet(s) PO QHS 08/31/2014 Inactive baclofen 20 mg tablet RxNorm: 949981 1 Tablet(s) PO TID as needed 1 11/01/2013 10/26/2014 Inactive triamterene 75 mg-hydrochlorothiazide 50 mg tablet RxNorm: 3 70313 1 Tablet(s) PO QD 08/31/2014 02/26/2015 Inactive Klor-Con 8 mEq tablet,extended release RxNorm: 449995 1 Tablet( s) PO BID 08/31/2014 11/20/2014 Inactive baclofen 20 mg tablet RxNorm: 611201 1 Tablet(s) PO TID as needed 1 09/30/2013 10/25/2014 Inactive baclofen 20 mg tablet RxNorm: 716602 1 Tablet(s) PO TID as needed 1 09/30/2013 08/31/2014 Inactive omeprazole 40 mg capsule,delayed release RxNorm: 065693 1 Capsu le(s) PO QD 07/21/2014 07/23/2015 Inactive Flonase 50 mcg/actuation nasal spray,suspension RxNorm: 8963 23 1 [place] NASAL BID 07/15/2014 04/09/2017 Inactive hydrocodone 10 mg-acetaminophen 325 mg tablet RxNorm: 464831 1-2 Tablet(s) QID as needed for pain TAKE ONE TO TWO TABLETS BY MOUTH FOUR TIMES A DAY . MUST LAST 30 DAYS 06/30/2014 07/27/2014 Inactive (Response to an electronic controlled substance refill request - RxReferenceNumber: [id number]) baclofen 20 mg tablet RxNorm: 000170 1 Tablet(s) PO TID as needed 1 07/31/2014 Inactive Singulair 10 mg tablet RxNorm: 071917 1 Tablet(s) PO QD TAKE ONE TABLET BY MOUTH EVERY DAY 05/25/2014 11/20/2014 Inactive Bystolic 10 mg tablet RxNorm: 352097 TAKE ONE TABLET BY MOUTH E VERY MORNING 05/25/2014 09/21/2014 Inactive allopurinol 300 mg tablet RxNorm: 287289 1 Tablet(s) PO QD TAKE ONE TABLET BY MOUTH EVERY DAY 05/25/2014 10/21/2014 Inactive baclofen 20 mg tablet RxNorm: 087527 1 Tablet(s) PO TID as needed 0 05/25/2014 06/29/2014 Inactive allopurinol 300 mg tablet RxNorm: 729429 TAKE ONE TABLET BY LOPEZ TH EVERY DAY 05/25/2014 09/21/2014 Inactive Singulair 10 mg tablet RxNorm: 195131 1 Tablet(s) PO QD TAKE ONE TABLET BY MOUTH EVERY DAY 05/25/2014 05/24/2014 Inactive Bystolic 10 mg tablet RxNorm: 101621 1 Tablet(s) PO QAM TAKE ONE TABLET BY MOUTH EVERY MORNING 05/25/2014 10/21/2014 Inactive metolazone 2.5 mg tablet RxNorm: 492888 1 Tablet(s) PO QD as ne eded for edema 05/18/2014 04/25/2015 Inactive Lasix 40 mg tablet RxNorm: 735885 1 Tablet(s) PO QAM s hould take potassium supplementation with this medication 05/14/2014 05/17/2014 Inactive hydrocodone 10 mg-acetaminophen 325 mg tablet RxNorm: 058533 1-2 Tablet(s) QID as needed for pain TAKE ONE TO TWO TABLETS BY MOUTH FOUR TIMES A DAY . MUST LAST 30 DAYS 05/07/2014 06/05/2014 Inactive (Response to an electronic controlled substance refill request - RxReferenceNumber: [id number]) alprazolam 0.5 mg tablet RxNorm: 430312 TAKE ONE TABLET BY MOUTH TWICE A DAY , MUST LAST 30 DAYS 05/07/2014 05/22/2016 Inactive (Response to a n electronic controlled substance refill request - RxReferenceNumber: [id number]) diclofenac sodium 75 mg tablet,delayed release RxNorm: 55835 6 1 Tablet(s) PO BID for pain 04/24/2014 07/20/2014 Inactive Celebrex 200 mg capsule RxNorm: 558999 TAKE ONE CAPSULE BY MOUT H EVERY DAY 04/24/2014 07/20/2014 Inactive alprazolam 0.5 mg tablet RxNorm: 159446 TAKE ONE TABLET BY MOUTH TWICE A DAY , MUST LAST 30 DAYS 03/24/2014 04/22/2014 Inactive (Response to a n electronic controlled substance refill request - RxReferenceNumber: [id number]) diclofenac sodium 75 mg tablet,delayed release RxNorm: 77791 6 1 Tablet(s) PO BID for pain 03/24/2014 04/24/2014 Inactive clonidine HCl 0.1 mg tablet RxNorm: 248371 1 Tablet(s) PO TID 03/2409/28/2014 Inactive replaces 0.2mg dose Klor-Con 8 mEq tablet,extended release RxNorm: 365496 1 Tablet( s) PO BID 02/26/2014 08/31/2014 Inactive diclofenac sodium 75 mg tablet,delayed release RxNorm: 37100 6 1 Tablet(s) PO BID for pain 02/25/2014 03/24/2014 Inactive hydrocodone 10 mg-acetaminophen 325 mg tablet RxNorm: 350928 1-2 Tablet(s) QID as needed for pain TAKE ONE TO TWO TABLETS BY MOUTH FOUR TIMES A DAY . MUST LAST 30 DAYS 02/25/2014 03/26/2014 Inactive (Response to an electronic controlled substance refill request - RxReferenceNumber: [id number]) alprazolam 0.5 mg tablet RxNorm: 591735 Tablet(s) PO BI D as needed for anxiety TAKE ONE TABLET BY MOUTH TWICE A DAY , MUST LAST 30 DAYS 02/25/2014 Inactive (Response to an electronic controlled [place] bstance refill request - RxReferenceNumber: [id number]) [AttnRPh: Saving apply/adjudicate RxGRP:SG20 RxBIN:[id number] RxPCN: ID#:[id number]] alprazolam 0.5 mg tablet RxNorm: 651637 Tablet(s) TAKE ONE TABLET BY MOUTH TWICE A DAY , MUST LAST 30 DAYS 01/27/2014 02/24/2014 Inactive (Respo nse to an electronic controlled substance refill request - RxReferenceNumber: [id number]) [AttnRPh: Saving apply/adjudicate RxGRP:SG20 RxBIN:[id number] RxPCN: ID#:[id number]] hydrocodone 10 mg-acetaminophen 325 mg tablet RxNorm: 049776 1-2 Tablet(s) QID as needed for pain TAKE ONE TO TWO TABLETS BY MOUTH FOUR TIMES A DAY . MUST LAST 30 DAYS 01/27/2014 02/24/2014 Inactive (Response to an electronic controlled substance refill request - RxReferenceNumber: [id number]) alprazolam 0.5 mg tablet RxNorm: 863278 TAKE ONE TABLET BY MOUTH TWICE A DAY , MUST LAST 30 DAYS 01/27/2014 01/26/2014 Inactive (Response to a n electronic controlled substance refill request - RxReferenceNumber: [id number]) Premarin 1.25 mg tablet RxNorm: 392373 1-2 Tablet(s) PO QD 01/28/20 14 07/25/2014 Inactive alprazolam 0.5 mg tablet RxNorm: 352949 TAKE ONE TABLET BY MOUTH TWICE A DAY , MUST LAST 30 DAYS 01/27/2014 01/27/2014 Inactive (Response to a n electronic controlled substance refill request - RxReferenceNumber: [id number]) hydrocodone 10 mg-acetaminophen 325 mg tablet RxNorm: 390919 TAKE ONE TO TWO TABLETS BY MOUTH FOUR TIMES A DAY . MUST LAST 30 DAYS 01/27/20142013 Inactive (Response to an electronic controlled [place] bstance refill request - RxReferenceNumber: [id number]) Celebrex 200 mg capsule RxNorm: 687220 1 Capsule(s) PO QD TAKE ONE CAPSULE BY MOUTH EVERY DAY 12/29/2013 04/27/2014 Inactive hydrocodone 10 mg-acetaminophen 325 mg tablet RxNorm: 390661 1-2 Tablet(s) PO QID as needed for severe pain 12/29/2013 01/27/2014 Inactive allopurinol 300 mg tablet RxNorm: 097238 1 Tablet(s) PO QD TAKE ONE TABLET BY MOUTH EVERY DAY 12/29/2013 05/24/2014 Inactive alprazolam 0.5 mg tablet RxNorm: 343002 TAKE ONE TABLET BY MOUTH TWICE A DAY , MUST LAST 30 DAYS 12/29/2013 01/27/2014 Inactive (Response to a n electronic controlled substance refill request - RxReferenceNumber: [id number]) Celebrex 200 mg capsule RxNorm: 832516 1 Capsule(s) PO QD TAKE ONE CAPSULE BY MOUTH EVERY DAY 12/29/2013 12/29/2013 Inactive Bystolic 10 mg tablet RxNorm: 872504 1 Tablet(s) PO QAM TAKE ONE TABLET BY MOUTH EVERY MORNING 12/29/2013 05/24/2014 Inactive Bystolic 10 mg tablet RxNorm: 286762 1 Tablet(s) PO QAM TAKE ONE TABLET BY MOUTH EVERY MORNING 12/29/2013 12/29/2013 Inactive Singulair 10 mg tablet RxNorm: 559059 1 Tablet(s) PO QD TAKE ONE TABLET BY MOUTH EVERY DAY 12/29/2013 05/25/2014 Inactive hydrocodone 10 mg-acetaminophen 325 mg tablet RxNorm: 943180 TAKE ONE TO TWO TABLETS BY MOUTH FOUR TIMES A DAY . MUST LAST 30 DAYS 12/29/20132013 Inactive (Response to an electronic controlled [place] bstance refill request - RxReferenceNumber: [id number]) Trazadone 75mg Tablet RxNorm: 1 Tablet(s) PO QHS as needed 03/23/2014 Inactive Trazadone 75mg Tablet RxNorm: 1 Tablet(s) PO QHS 12/24/20132014 Inactive Soma 350 mg tablet RxNorm: 127671 Tablet(s) PO TAKE ON E TABLET BY MOUTH THREE TIMES A DAY NEEDED FOR MUSCLE SPASMS. THIS MUST LAST 30 DAYS BETWEEN REFILLS. 12/10/2013 12/22/2013 Inactive (Appended: Cont rolled substance eRx refill - RxReferenceNumber: [id number]) diclofenac sodium 75 mg tablet,delayed release RxNorm: 87998 6 1 Tablet(s) PO BID for pain 12/10/2013 02/24/2014 Inactive allopurinol 300 mg tablet RxNorm: 134919 1 Tablet(s) PO QD 11/20/19 14 12/29/2013 Inactive alprazolam 0.5 mg tablet RxNorm: 708176 2 Tablet(s) PO BID 11/13/19 14 12/29/2013 Inactive prn clonidine 0.1 mg tablet RxNorm: 547020 1 Tablet(s) PO TID 11/12/2013 02/09/2014 Inactive replaces 0.2mg dose Klor-Con M20 mEq tablet,extended release RxNorm: 963765 2 Tablet(s) PO BID to use with lasix 11/12/2013 05/10/2014 Inactive Singulair 10 mg tablet RxNorm: 753684 1 Tablet(s) PO QD 11/12/2013 Inactive hydrocodone 10 mg-acetaminophen 325 mg tablet RxNorm: 543520 1-2 Tablet(s) PO QID as needed for severe pain 11/12/2013 12/28/2013 Inactive Bystolic 10 mg tablet RxNorm: 909302 1 Tablet(s) PO QAM 11/12/2013 Inactive Soma 350 mg tablet RxNorm: 351448 Tablet(s) PO TAKE ON E TABLET BY MOUTH THREE TIMES A DAY NEEDED FOR MUSCLE SPASMS. THIS MUST LAST 30 DAYS BETWEEN REFILLS. 10/13/2013 12/10/2013 Inactive (Appended: Cont rolled substance eRx refill - RxReferenceNumber: [id number]) hydrocodone 10 mg-acetaminophen 325 mg tablet RxNorm: 675168 1-2 Tablet(s) PO QID as needed for severe pain 10/03/2013 11/11/2013 Inactive diclofenac sodium 75 mg tablet,delayed release RxNorm: 07191 8 1 Tablet(s) PO BID for pain 09/11/2013 12/10/2013 Inactive alprazolam 0.5 mg tablet RxNorm: 228668 1 Tablet(s) PO BID May refill on 04/26/13 09/01/2013 10/30/2013 Inactive prn hydrocodone 10 mg-acetaminophen 325 mg tablet RxNorm: 605268 1-2 Tablet(s) PO QID as needed for severe pain 09/01/2013 10/02/2013 Inactive triamterene 75 mg-hydrochlorothiazide 50 mg tablet RxNorm: 3 82216 1 Tablet(s) PO QD 08/04/2013 08/31/2014 Inactive cyclobenzaprine 10 mg tablet RxNorm: 968467 1 Tablet(s) PO TID prn spasm 08/04/2013 08/13/2013 Inactive clonidine 0.1 mg tablet RxNorm: 841854 1 Tablet(s) PO TID 08/04/2013 11/11/2013 Inactive replaces 0.2mg dose cyclobenzaprine 10 mg tablet RxNorm: 302947 1 Tablet(s) PO TID prn spasm 07/23/2013 08/01/2013 Inactive hydrocodone 10 mg-acetaminophen 325 mg tablet RxNorm: 009492 2 1-2 Tablet(s) PO QID as needed for severe pain 06/09/2013 08/07/2013 Inactive Singulair 10 mg tablet RxNorm: 472066 1 Tablet(s) PO QD 05/29/2013 Inactive Klor-Con 8 mEq tablet,extended release RxNorm: 004810 1 Tablet( s) PO BID 05/29/2013 02/26/2014 Inactive allopurinol 300 mg tablet RxNorm: 084863 1 Tablet(s) PO QD 05/29/20 13 11/19/2013 Inactive Bystolic 10 mg tablet RxNorm: 370361 1 Tablet(s) PO QAM take one daily in the morning. 05/29/2013 11/11/2013 Inactive scopolamine 1.5 mg 72 hr Transderm Patch RxNorm: 853589 Application TD Q72H for motion sickness 05/26/2013 07/22/2013 Inactive Soma 350 mg tablet RxNorm: 885623 1 Tablet(s) PO TID as needed for spasm 05/19/2013 10/13/2013 Inactive diclofenac sodium 75 mg tablet,delayed release RxNorm: 94215 8 1 Tablet(s) PO BID for pain 05/14/2013 07/22/2013 Inactive allopurinol 300 mg tablet RxNorm: 249366 1 Tablet(s) PO QD 04/25/20 13 05/28/2013 Inactive alprazolam 0.5 mg tablet RxNorm: 900337 1 Tablet(s) PO BID May refill on 04/26/13 04/25/2013 06/23/2013 Inactive prn Celebrex 200 mg capsule RxNorm: 947502 1 Capsule(s) PO QD 04/16/2013 12/29/2013 Inactive alprazolam 0.5 mg tablet RxNorm: 647419 1 Tablet(s) PO BID May refill on 04/26/13 04/16/2013 04/24/2013 Inactive prn Soma 350 mg tablet RxNorm: 448324 1 Tablet(s) PO TID as needed for spasm 04/16/2013 No Stop Date Active Lasix 40 mg tablet RxNorm: 958202 1 Tablet(s) PO QAM s hould take potassium supplementation with this medication 04/16/2013 06/14/2013 Inactive clonidine 0.1 mg tablet RxNorm: 227634 1 Tablet(s) PO TID 04/16/2013 08/03/2013 Inactive replaces 0.2mg dose prednisone 20 mg tablet RxNorm: 271992 1 Tablet(s) PO BID 04/16/2013 04/20/2013 Inactive diclofenac sodium 75 mg tablet,delayed release RxNorm: 53577 8 1 Tablet(s) PO BID for pain 04/14/2013 05/13/2013 Inactive hydrocodone 10 mg-acetaminophen 325 mg tablet RxNorm: 255656 2 1-2 Tablet(s) PO QID as needed for severe pain 04/14/2013 No Stop Date Active Lasix 40 mg tablet RxNorm: 897257 1 Tablet(s) PO QAM s hould take potassium supplementation with this medication 03/31/2013 04/15/2013 Inactive Celebrex 200 mg capsule RxNorm: 233419 1 Capsule(s) PO QD 03/31/2013 04/15/2013 Inactive alprazolam 0.5 mg tablet RxNorm: 199037 1 Tablet(s) PO BID 03/28/20 13 04/15/2013 Inactive prn hydrocodone 10 mg-acetaminophen 325 mg tablet RxNorm: 888917 2 1-2 Tablet(s) PO QID as needed for severe pain 03/10/2013 No Stop Date Active metformin ER 500 mg 24 hr tablet,extended release RxNorm: 86 1018 1 Tablet(s) PO QD 03/06/2013 07/22/2013 Inactive clindamycin 300 mg capsule RxNorm: 835905 2 Capsule(s) PO TID 03/0503/14/2013 Inactive Zaroxolyn 2.5 mg tablet RxNorm: 611602 1 Tablet(s) PO QAM 03/05/2013 05/19/2015 Inactive amlodipine 10 mg tablet RxNorm: 730184 1 Tablet(s) PO QD 03/03/2013 0 05/25/2013 Inactive Norvasc 10 mg tablet RxNorm: 872330 1 Tablet(s) PO QD 02/28/201307/11 Inactive Celebrex 200 mg capsule RxNorm: 844603 1 Capsule(s) PO QD 02/28/2013 03/30/2013 Inactive diclofenac sodium 75 mg tablet,delayed release RxNorm: 19549 8 1 Tablet(s) PO BID for pain 02/14/2013 03/15/2013 Inactive Soma 350 mg tablet RxNorm: 452599 1 Tablet(s) PO TID as needed for spasm 02/14/2013 No Stop Date Active hydrocodone 10 mg-acetaminophen 325 mg tablet RxNorm: 060182 2 1-2 Tablet(s) PO QID as needed for severe pain 02/14/2013 No Stop Date Active Norvasc 10 mg tablet RxNorm: 186177 1 Tablet(s) PO QD 02/10/201302/09 Inactive Celebrex 200 mg capsule RxNorm: 248749 1 Capsule(s) PO QD 01/27/2013 01/26/2013 Inactive Premarin 1.25 mg tablet RxNorm: 302213 1-2 Tablet(s) PO QD 01/28/20 13 06/25/2013 Inactive alprazolam 0.5 mg tablet RxNorm: 096913 1 Tablet(s) PO BID 01/28/20 13 02/25/2013 Inactive prn amlodipine 5 mg tablet RxNorm: 221254 1 Tablet(s) PO QD 01/27/2013 Inactive Celebrex 200 mg capsule RxNorm: 175309 1 Capsule(s) PO QD 01/27/2013 02/27/2013 Inactive gabapentin 600 mg tablet RxNorm: 728142 1 Tablet(s) PO QHS 01/16/20 13 07/22/2013 Inactive Soma 350 mg tablet RxNorm: 025757 1 Tablet(s) PO TID as needed for spasm 01/15/2013 No Stop Date Active hydrocodone 10 mg-acetaminophen 325 mg tablet RxNorm: 501136 2 1-2 Tablet(s) PO QID as needed for severe pain 01/15/2013 No Stop Date Active Soma 350 mg tablet RxNorm: 701421 1 Tablet(s) PO TID as needed for spasm 01/13/2013 No Stop Date Active alprazolam 0.5 mg tablet RxNorm: 296074 1 Tablet(s) PO BID 12/31/19 13 01/26/2013 Inactive prn diclofenac sodium 75 mg tablet,delayed release RxNorm: 44504 8 1 Tablet(s) PO BID for pain 12/09/2012 01/07/2013 Inactive gabapentin 600 mg tablet RxNorm: 116503 1 Tablet(s) PO QHS 12/10/19 13 01/07/2013 Inactive hydrocodone 10 mg-acetaminophen 325 mg tablet RxNorm: 176952 2 1-2 Tablet(s) PO QID as needed for severe pain 12/02/2012 No Stop Date Active Levaquin 750 mg tablet RxNorm: 310016 1 Tablet(s) PO QD 11/21/2012 Inactive Singulair 10 mg tablet RxNorm: 396802 1 Tablet(s) PO QD 11/11/2012 Inactive clonidine 0.2 mg tablet RxNorm: 158635 1 Tablet(s) PO TID 11/11/2012 04/15/2013 Inactive alprazolam 0.5 mg tablet RxNorm: 678209 1 Tablet(s) PO BID 11/12/19 13 12/10/2012 Inactive prn Klor-Con 8 mEq tablet,extended release RxNorm: 091054 1 Tablet( s) PO BID 11/11/2012 03/04/2013 Inactive hydrocodone 10 mg-acetaminophen 325 mg tablet RxNorm: 205986 2 1-2 Tablet(s) PO QID as needed for severe pain 11/06/2012 No Stop Date Active alprazolam 0.5 mg tablet RxNorm: 174574 1 Tablet(s) PO BID 10/15/19 13 11/10/2012 Inactive prn hydrocodone-acetaminophen 10 mg-325 mg tablet RxNorm: 388724 2 1-2 Tablet(s) PO QID as needed for severe pain 10/10/2012 10/09/2012 Inactive allopurinol 300 mg tablet RxNorm: 447071 1 Tablet(s) PO QD 09/20/19 13 12/18/2012 Inactive alprazolam 0.5 mg tablet RxNorm: 231225 1 Tablet(s) PO BID 09/17/19 13 10/14/2012 Inactive prn hydrocodone-acetaminophen 10 mg-325 mg tablet RxNorm: 741065 2 1-2 Tablet(s) PO QID as needed for severe pain 08/22/2012 08/21/2012 Inactive Norvasc 10 mg tablet RxNorm: 373181 1 Tablet(s) PO QD 08/12/201201/10 Inactive Premarin 1.25 mg tablet RxNorm: 308603 1-2 Tablet(s) PO QD 07/30/20 12 12/26/2012 Inactive alprazolam 0.5 mg tablet RxNorm: 244279 1 Tablet(s) PO BID 07/29/20 12 08/27/2012 Inactive prn Klor-Con 8 mEq tablet,extended release RxNorm: 077246 1 Tablet( s) PO BID 07/29/2012 11/10/2012 Inactive hydrocodone-acetaminophen 10 mg-325 mg tablet RxNorm: 557023 2 1-2 Tablet(s) PO QID as needed for severe pain 07/29/2012 No Stop Date Active Premarin 1.25 mg tablet RxNorm: 625960 1-2 Tablet(s) PO QD 07/29/2007/29/2012 Inactive clonidine 0.2 mg tablet RxNorm: 724570 1 Tablet(s) PO TID 07/29/2012 10/28/2012 Inactive ketorolac 10 mg tablet RxNorm: 559921 1 Tablet(s) PO QID prn mitul joseph 07/18/2012 No Stop Date Active hydrocodone-acetaminophen 10 mg-325 mg tablet RxNorm: 181332 2 1-2 Tablet(s) PO QID as needed for severe pain 07/03/2012 No Stop Date Active amlodipine 5 mg tablet RxNorm: 734209 1 Tablet(s) PO QD 07/02/2012 Inactive allopurinol 300 mg tablet RxNorm: 550713 1 Tablet(s) PO QD 07/02/20 12 09/19/2012 Inactive Celebrex 200 mg capsule RxNorm: 450726 1 Capsule(s) PO QD for j oint pain 06/26/2012 10/23/2012 Inactive diclofenac sodium 75 mg tablet,delayed release RxNorm: 78397 8 1 Tablet(s) PO BID for pain 06/19/2012 09/16/2012 Inactive hydrocodone-acetaminophen 10 mg-325 mg tablet RxNorm: 008822 2 1-2 Tablet(s) PO QID as needed for severe pain 06/10/2012 No Stop Date Active alprazolam 0.5 mg tablet RxNorm: 981915 1 Tablet(s) PO BID 06/03/20 12 07/02/2012 Inactive prn ketorolac 10 mg tablet RxNorm: 029964 1 Tablet(s) PO Q8H 05/27/2012 0 01/21/2019 Inactive as needed for headache hydrocodone-acetaminophen 10 mg-325 mg tablet RxNorm: 882855 2 1-2 Tablet(s) PO QID as needed for severe pain 05/15/2012 No Stop Date Active allopurinol 300 mg tablet RxNorm: 716656 1 Tablet(s) PO QD 05/14/20 12 06/12/2012 Inactive allopurinol 300 mg tablet RxNorm: 137185 1 Tablet(s) PO QD 05/14/20 12 05/13/2012 Inactive amlodipine 5 mg tablet RxNorm: 053780 1 Tablet(s) PO QD 05/01/2012 Inactive amlodipine 5 mg Tab RxNorm: 263668 1 Tablet(s) PO QD 05/01/201204/30 Inactive Celebrex 200 mg capsule RxNorm: 104713 1 Capsule(s) PO QD for j oint pain 05/01/2012 06/25/2012 Inactive Singulair 10 mg tablet RxNorm: 632851 1 Tablet(s) PO QD 05/01/2012 Inactive alprazolam 0.5 mg tablet RxNorm: 358265 1 Tablet(s) PO BID 05/01/20 12 05/30/2012 Inactive prn Celebrex 200 mg Cap RxNorm: 966098 1 Capsule(s) PO QD for joint radu n 05/01/2012 04/30/2012 Inactive hydrocodone-acetaminophen 10 mg-325 mg tablet RxNorm: 062630 2 1-2 Tablet(s) PO QID as needed for severe pain 04/19/2012 No Stop Date Active Lasix 40 mg tablet RxNorm: 699056 1 Tablet(s) PO QAM s hould take potassium supplementation with this medication 04/05/2012 06/03/2012 Inactive alprazolam 0.5 mg Tab RxNorm: 032734 1 Tablet(s) PO BID 04/05/2012 Inactive prn hydrocodone-acetaminophen 10 mg-325 mg Tab RxNorm: 7192076 1-2 Tablet(s) PO QID as needed for severe pain 03/25/2012 03/24/2012 Inactive clonidine 0.2 mg Tab RxNorm: 253727 1 Tablet(s) PO TID 03/08/2012 Inactive alprazolam 0.5 mg Tab RxNorm: 942285 1 Tablet(s) PO BID 03/08/2012 Inactive prn Soma 350 mg tablet RxNorm: 403998 1 Tablet(s) PO TID for spasm 02/0903/18/2012 Inactive clonidine 0.2 mg tablet RxNorm: 510932 1 Tablet(s) PO TID 03/08/2012 07/28/2012 Inactive Celebrex 200 mg Cap RxNorm: 727055 1 Capsule(s) PO QD for joint radu n 03/01/2012 04/29/2012 Inactive amlodipine 5 mg Tab RxNorm: 400453 1 Tablet(s) PO QD 02/26/201202/24 Inactive amlodipine 5 mg Tab RxNorm: 583945 1 Tablet(s) PO QD 02/26/201204/25 Inactive Bactroban 2 % Ointment RxNorm: 440371 Application TOP QID to sores 02/23/2012 No Stop Date Active amlodipine 2.5 mg tablet RxNorm: 620372 1 Tablet(s) PO QHS 02/20/20 12 02/25/2012 Inactive doxycycline hyclate 100 mg Cap RxNorm: 8802210 1 Capsule(s) PO BID 02/20/2012 02/29/2012 Inactive hydrocodone-acetaminophen 10 mg-325 mg Tab RxNorm: 3151032 1-2 T ablet(s) PO QID 02/08/2012 No Stop Date Active alprazolam 0.5 mg Tab RxNorm: 222262 1 Tablet(s) PO BID 02/08/2012 Inactive prn Singulair 10 mg Tab RxNorm: 003984 1 Tablet(s) PO QD 02/08/201204/30 Inactive Soma 350 mg Tab RxNorm: 646326 1 Tablet(s) PO TID for spasm 012 03/07/2012 Inactive Soma 350 mg Tab RxNorm: 742441 1 Tablet(s) PO TID for spasm 012 02/05/2012 Inactive diclofenac sodium 75 mg tablet,delayed release RxNorm: 71761 8 1 Tablet(s) PO BID for pain 02/01/2012 03/18/2012 Inactive Celebrex 200 mg Cap RxNorm: 660608 1 Capsule(s) PO QD for joint radu n 01/30/2012 02/28/2012 Inactive Lasix 40 mg Tab RxNorm: 532045 1 Tablet(s) PO QAM 01/24/2012 03/18/20 12 Inactive potassium chloride ER 20 mEq tablet,extended release(part/cr yst) RxNorm: 337592 2 Tablet(s) PO BID 01/24/2012 02/22/2012 Inactive alprazolam 0.5 mg Tab RxNorm: 155458 1 Tablet(s) PO BID 01/11/2012 Inactive prn hydrocodone-acetaminophen 10 mg-325 mg Tab RxNorm: 7154259 1-2 T ablet(s) PO QID 01/11/2012 No Stop Date Active Ambien 10 mg Tab RxNorm: 079561 1 Tablet(s) PO QHS 01/11/2012 012 Inactive Klor-Con 8 mEq Tab RxNorm: 168371 1 Tablet(s) PO BID 01/11/201201/22 Inactive diclofenac sodium 75 mg Tab, Delayed Release RxNorm: 762527 1 Tablet(s) PO BID for pain 01/10/2012 01/31/2012 Inactive Ambien 10 mg Tab RxNorm: 883415 1 Tablet(s) PO QHS 12/11/2011 012 Inactive alprazolam 0.5 mg Tab RxNorm: 585010 1 Tablet(s) PO BID 12/11/2011 Inactive prn hydrocodone 10 mg-acetaminophen 325 mg tablet RxNorm: 157645 1-2 Tablet(s) PO TID 11/28/2011 No Stop Date Active as needed for pa in - Previous quantity #240, will start dosing for #180 in April 2011 per Doctor Appiah. Ambien 10 mg Tab RxNorm: 430788 1 Tablet(s) PO QHS 11/09/2011 012 Inactive alprazolam 0.5 mg Tab RxNorm: 172307 1 Tablet(s) PO BID 11/09/2011 Inactive prn hydrocodone-acetaminophen 10 mg-325 mg Tab RxNorm: 0633220 1-2 T ablet(s) PO TID 11/06/2011 No Stop Date Active as needed for pain - Previous quantity #240, will start dosing for #180 in April 2011 per Doctor Td. Singulair 10 mg Tab RxNorm: 736452 1 Tablet(s) PO QD 10/13/201110/12 Inactive Singulair 10 mg Tab RxNorm: 267273 1 Tablet(s) PO QD 10/13/201102/06 Inactive hydrocodone-acetaminophen 10 mg-325 mg Tab RxNorm: 0454178 1-2 T ablet(s) PO TID 10/10/2011 10/09/2011 Inactive as needed for pain - Previous quantity #240, will start dosing for #180 in April 2011 per Doctor Td. hydrocodone-acetaminophen 10 mg-325 mg Tab RxNorm: 2511385 1-2 T ablet(s) PO TID 10/09/2011 No Stop Date Active as needed for pain - Previous quantity #240, will start dosing for #180 in April 2011 per Doctor Td. Klor-Con 8 mEq Tab RxNorm: 042788 1 Tablet(s) PO BID 10/02/201101/09 Inactive triamterene 75 mg-hydrochlorothiazide 50 mg tablet RxNorm: 3 33685 1 Tablet(s) PO QD 09/14/2011 03/06/2013 Inactive Ambien 10 mg Tab RxNorm: 682248 1 Tablet(s) PO QHS 09/14/2011 012 Inactive hydrocodone-acetaminophen 10 mg-325 mg Tab RxNorm: 7881129 1-2 T ablet(s) PO TID 09/14/2011 No Stop Date Active as needed for pain - Previous quantity #240, will start dosing for #180 in April 2011 per Doctor Td. alprazolam 0.5 mg Tab RxNorm: 904025 1 Tablet(s) PO BID 09/14/2011 Inactive prn Zithromax 500 mg Tab RxNorm: 5992250 1 Tablet(s) PO QD 09/13/201106/2012 Inactive prednisone 20 mg Tab RxNorm: 676986 1 Tablet(s) PO BID 08/31/2011 Inactive Ambien 10 mg Tab RxNorm: 323260 1 Tablet(s) PO QHS 08/17/2011 011 Inactive hydrocodone-acetaminophen 10 mg-325 mg Tab RxNorm: 7082738 1-2 T ablet(s) PO TID 08/17/2011 No Stop Date Active as needed for pain - Previous quantity #240, will start dosing for #180 in April 2011 per Doctor Td. clonidine 0.2 mg Tab RxNorm: 383679 1 Tablet(s) PO TID 08/17/201112/2011 Inactive Ambien 10 mg Tab RxNorm: 434860 1 Tablet(s) PO QHS 08/17/2011 019 Inactive alprazolam 0.5 mg Tab RxNorm: 756101 1 Tablet(s) PO BID 08/17/2011 Inactive prn hydrocodone-acetaminophen 10 mg-325 mg Tab RxNorm: 6797874 1-2 T ablet(s) PO TID 08/17/2011 08/16/2011 Inactive as needed for pain - Previous quantity #240, will start dosing for #180 in April 2011 per Doctor Td. Singulair 10 mg Tab RxNorm: 094782 1 Tablet(s) PO QD 08/17/201108/16 Inactive Klor-Con 8 mEq Tab RxNorm: 417734 1 Tablet(s) PO QD 08/17/20112011 Inactive alprazolam 0.5 mg Tab RxNorm: 659584 1 Tablet(s) PO BID 07/20/2011 Inactive prn Ambien 10 mg Tab RxNorm: 315300 1 Tablet(s) PO QHS 07/20/2011 012 Inactive Singulair 10 mg Tab RxNorm: 165911 1 Tablet(s) PO QD 07/20/201107/19 Inactive Premarin 1.25 mg tablet RxNorm: 501414 2 Tablet(s) PO QD 07/20/2011 0 01/21/2019 Inactive Premarin 1.25 mg tablet RxNorm: 365728 1-2 Tablet(s) PO QD 07/20/20 11 12/16/2011 Inactive Premarin 1.25 mg Tab RxNorm: 137809 1-2 Tablet(s) PO QD 07/06/2011 Inactive alprazolam 0.5 mg Tab RxNorm: 199572 1 Tablet(s) PO BID 06/22/2011 Inactive prn alprazolam 0.5 mg Tab RxNorm: 404140 1 Tablet(s) PO BID 06/22/2011 Inactive prn Premarin 1.25 mg Tab RxNorm: 878281 1 Tablet(s) PO QD m ay do 90 day fill if desired 06/22/2011 07/05/2011 Inactive hydrocodone-acetaminophen 10 mg-325 mg Tab RxNorm: 0417551 1-2 T ablet(s) PO TID 06/22/2011 No Stop Date Active as needed for pain - Previous quantity #240, will start dosing for #180 in April 2011 per Doctor Td. clonidine 0.2 mg Tab RxNorm: 274905 1 Tablet(s) PO TID 05/25/201103/2011 Inactive triamterene-hydrochlorothiazide 75 mg-50 mg Tab RxNorm: 3108 18 1 Tablet(s) PO QD 05/25/2011 09/13/2011 Inactive alprazolam 0.5 mg Tab RxNorm: 057709 1 Tablet(s) PO BID 05/25/2011 Inactive prn hydrocodone-acetaminophen 10 mg-325 mg Tab RxNorm: 1857860 1-2 T ablet(s) PO TID 05/25/2011 No Stop Date Active as needed for pain - Previous quantity #240, will start dosing for #180 in April 2011 per Doctor Td. Robaxin-750 750 mg Tab RxNorm: 213527 2 Tablet(s) PO QHS 05/22/2011 1 Inactive prn spasm hydrocodone-acetaminophen 10 mg-325 mg Tab RxNorm: 1717758 1-2 T ablet(s) PO TID 04/26/2011 No Stop Date Active as needed for pain - Previous quantity #240, will start dosing for #180 in April 2011 per Doctor Td. alprazolam 0.5 mg Tab RxNorm: 588556 1 Tablet(s) PO BID 04/25/2011 Inactive prn Klor-Con 8 mEq Tab RxNorm: 003850 1 Tablet(s) PO QD 03/30/20112010 Inactive Klor-Con 8 mEq Tab RxNorm: 914490 1 Tablet(s) PO QD 03/29/20112010 Inactive hydrocodone-acetaminophen 10 mg-325 mg Tab RxNorm: 4088583 1-2 T ablet(s) PO TID 03/20/2011 04/25/2011 Inactive as needed for pain - Previous quantity #240, will start dosing for #180 in April 2011 per Doctor Td. alprazolam 0.5 mg Tab RxNorm: 817415 1 Tablet(s) PO BID prn 011 03/30/2011 Inactive Ambien 10 mg Tab RxNorm: 408232 1 Tablet(s) PO QHS 03/01/2011 011 Inactive cyclobenzaprine 10 mg Tab RxNorm: 599223 1 Tablet(s) PO TID 011 03/18/2012 Inactive cyclobenzaprine 10 mg Tab RxNorm: 641001 1 Tablet(s) PO TID 011 01/08/2011 Inactive cyclobenzaprine 10 mg Tab RxNorm: 865394 1 Tablet(s) PO TID 011 12/20/2010 Inactive terbinafine 250 mg Tab RxNorm: 701390 1 Tablet(s) PO QD 12/12/2010 Inactive triamterene-hydrochlorothiazide 75 mg-50 mg Tab RxNorm: 3108 18 1 Tablet(s) PO QD 12/07/2010 06/04/2011 Inactive Klor-Con 8 8 mEq Tab RxNorm: 976604 1 Tablet(s) PO QD 12/07/201001/08 Inactive Premarin 1.25 mg Tab RxNorm: 166192 2 Tablet(s) PO QD 12/07/201001/08 Inactive clonidine 0.2 mg Tab RxNorm: 288289 1 Tablet(s) PO TID 12/07/2010 Inactive hydrocodone-acetaminophen 7.5 mg-650 mg Tab RxNorm: 778057 1 Ta blet(s) PO Q4H 12/05/2010 01/21/2019 Inactive hydrocodone-acetaminophen 7.5 mg-650 mg Tab RxNorm: 595149 1 Ta blet(s) PO Q4H 10/26/2010 11/14/2010 Inactive hydrocodone-acetaminophen 7.5 mg-650 mg Tab RxNorm: 708793 1 Ta blet(s) PO Q4H 10/13/2010 10/25/2010 Inactive hydrocodone-acetaminophen 7.5 mg-650 mg Tab RxNorm: 717890 1 Ta blet(s) PO Q4H 09/15/2010 09/12/2010 Inactive alprazolam 0.5 mg Tab RxNorm: 727848 1 Tablet(s) PO BID prn 011 09/12/2010 Inactive terbinafine 250 mg Tab RxNorm: 082772 1 Tablet(s) PO QD 09/05/2010 Inactive hydrocodone-acetaminophen 7.5 mg-650 mg Tab RxNorm: 123447 1 Ta blet(s) PO Q4H 08/29/2010 09/17/2010 Inactive alprazolam 0.5 mg Tab RxNorm: 404366 1 Tablet(s) PO BID prn 010 09/27/2010 Inactive alprazolam 0.5 mg Tab RxNorm: 680660 1 Tablet(s) PO BID prn 010 09/06/2010 Inactive Klor-Con 8 mEq Tab RxNorm: 248817 1 Tablet(s) PO QD 08/08/20102010 Inactive hydrocodone-acetaminophen 7.5 mg-650 mg Tab RxNorm: 809836 1 Ta blet(s) PO Q4H 08/08/2010 08/27/2010 Inactive Ambien 10 mg Tab RxNorm: 157218 1 Tablet(s) PO QHS 08/08/2010 Inactive clonidine 0.2 mg Tab RxNorm: 743572 1 Tablet(s) PO TID 08/08/2010 Inactive Premarin 1.25 mg Tab RxNorm: 972605 2 Tablet(s) PO QD 08/08/201009/12 Inactive Ambien 10 mg Tab RxNorm: 887958 1 Tablet(s) PO QHS 07/18/2010 Inactive alprazolam 0.5 mg Tab RxNorm: 499555 1 Tablet(s) PO BID prn 010 08/07/2010 Inactive hydrocodone-acetaminophen 7.5 mg-650 mg Tab RxNorm: 589459 1 Ta blet(s) PO Q4H 07/12/2010 07/31/2010 Inactive clonidine 0.2 mg Tab RxNorm: 600492 1 Tablet(s) PO TID 06/20/2010 Inactive terbinafine 250 mg Tab RxNorm: 595540 1 Tablet(s) PO QD 05/24/2010 Inactive Clonidine 0.2 mg Tab RxNorm: 261397 1 Tablet(s) PO TID 05/24/201006/2010 Inactive Ambien 10 mg Tab RxNorm: 892998 1 Tablet(s) PO QHS 05/24/2010 010 Inactive alprazolam 0.5 mg Tab RxNorm: 479694 1 Tablet(s) PO BID 05/24/2010 Inactive Klor-Con 8 mEq Tab RxNorm: 579030 1 Tablet(s) PO QD 05/24/20102009 Inactive alprazolam 0.5 mg Tab RxNorm: 459689 2 Tablet(s) PO QD prn 05/24/20 10 07/17/2010 Inactive triamterene-hydrochlorothiazide 75 mg-50 mg Tab RxNorm: 3108 18 1 Tablet(s) PO QD 05/24/2010 11/19/2010 Inactive Ambien 10 mg Tab RxNorm: 740638 1 Tablet(s) PO QHS 05/23/2010 010 Inactive Alprazolam 0.5 mg Tab RxNorm: 021752 2 Tablet(s) PO QD prn 05/23/2005/23/2010 Inactive Premarin 1.25 mg Tab RxNorm: 174889 2 Tablet(s) PO QD 05/19/201007/12 Inactive Hydrocodone-Acetaminophen 7.5 mg-650 mg Tab RxNorm: 155812 1 Ta blet(s) PO Q4H 05/19/2010 03/20/2011 Inactive Prednisone 20 mg Tab RxNorm: 751300 1 Tablet(s) PO BID 05/17/2010 Inactive Prednisone 20 mg Tab RxNorm: 347324 1 Tablet(s) PO BID 05/06/201001/2010 Inactive Premarin 1.25 mg Tab RxNorm: 399060 Tablet(s) PO 2 M-W-F, and 1 Yp-Fm-Gvg-Sun 05/05/2010 08/02/2010 Inactive Premarin 1.25 mg Tab RxNorm: 552595 Tablet(s) PO 2 M-W-F, and 1 Ku-Aj-Rly-Sun 05/04/2010 05/04/2010 Inactive Premarin 1.25 mg Tab RxNorm: 533432 Tablet(s) PO 2 M-W-F, and 1 Oq-Hm-Ekt-Sun 05/04/2010 05/03/2010 Inactive Prednisone 20 mg Tab RxNorm: 316718 1 Tablet(s) PO BID 04/27/2010 Inactive Alprazolam 0.5 mg Tab RxNorm: 861357 2 Tablet(s) PO QD prn 04/26/20 10 05/22/2010 Inactive Clindamycin 300 mg Cap RxNorm: 028690 2 Capsule(s) PO TID 04/05/2010 04/18/2010 Inactive Terbinafine 250 mg Tab RxNorm: 517132 1 Tablet(s) PO QD 04/04/2010 Inactive Hydrocodone-Acetaminophen 7.5 mg-650 mg Tab RxNorm: 793722 1 Ta blet(s) PO Q4H 03/30/2010 04/18/2010 Inactive Avelox 400 mg Tab RxNorm: 274849 1 Tablet(s) PO QD 03/09/2010 010 Inactive Hydrocodone-Acetaminophen 7.5 mg-650 mg Tab RxNorm: 455312 1 Ta blet(s) PO Q4H 03/08/2010 03/27/2010 Inactive Alprazolam 0.5 mg Tab RxNorm: 215841 2 Tablet(s) PO QD prn 03/08/20 10 04/25/2010 Inactive Klor-Con 8 mEq Tab RxNorm: 449015 1 Tablet(s) PO QD when takes lasi x 03/07/2010 08/03/2010 Inactive Premarin 1.25 mg Tab RxNorm: 015865 1 Tablet(s) PO QD 03/03/201003/11 Inactive Alprazolam 0.5 mg Tab RxNorm: 122159 1 Tablet(s) PO BID PRN 010 No Stop Date Active triamterene-hydrochlorothiazide 75 mg-50 mg Tab RxNorm: 3108 18 1 Tablet(s) PO QD 02/09/2010 02/03/2011 Inactive Hydrocodone-Acetaminophen 10 mg-750 mg Tab RxNorm: 606799 1 Tablet(s) PO Q4H PRN 02/09/2010 03/20/2011 Inactive Clonidine 0.2 mg Tab RxNorm: 464910 1 Tablet(s) PO TID 01/13/201009/2009 Inactive Alprazolam 0.5 mg Tab RxNorm: 020329 1 Tablet(s) PO BID PRN 010 01/12/2010 Inactive Hydrocodone-Acetaminophen 10 mg-750 mg Tab RxNorm: 237849 1 Tablet(s) PO Q4H PRN 01/13/2010 01/12/2010 Inactive ANGELIQ 1 mg-0.5 mg Tab RxNorm: 5365833 1 Tablet(s) PO QD 12/27/2009 01/23/2010 Inactive Lasix 40 mg Tab RxNorm: 872986 1 Tablet(s) PO QAM 12/14/2009 06/11/20 10 Inactive Vitamin B12 1000mcg Tablet RxNorm: 1 Tablet(s) PO QD No Start Date Active cyclobenzaprine 10 mg tablet RxNorm: 809230 1 Tablet(s) PO TID as needed DO NOT USE WITH BACLOFEN No Start Date Active Vitamin D 5,000 unit Tab RxNorm: 1 Tablet(s) PO QD No Start Date Active vitamin E (dl, acetate) 400 unit Cap RxNorm: 807324 1 Capsule(s ) PO QD No Start Date Active Benadryl 25 mg Cap RxNorm: 5719665 Capsule(s) PO PRN No Start Date Inactive amitriptyline 100 mg tablet RxNorm: 209584 1 Tablet(s) PO QHS No St art Date 11/27/2016 Inactive Zithromax Z-Dustin 250 mg tablet RxNorm: 702332 Tablet(s) PO as di rected No Start Date 07/22/2013 Inactive Klor-Con 8 mEq tablet,extended release RxNorm: 050789 1 Tablet( s) PO BID No Start Date 07/28/2012 Inactive scopolamine 1.5 mg 72 hr Transderm Patch RxNorm: 932697 Application TD Q72H for motion sickness No Start Date 05/25/2013 Inactive Klonopin 1 mg tablet RxNorm: 909817 1-2 Tablet(s) PO QHS as nee ded for sleep No Start Date 06/20/2015 Inactive Klor-Con M20 mEq tablet,extended release RxNorm: 939822 2 Tablet(s) PO BID to use with lasix No Start Date 11/11/2013 Inactive Bystolic 5 mg tablet RxNorm: 484732 1 Tablet(s) PO QD No Start Date 1 Inactive Bystolic 10 mg tablet RxNorm: 592065 1 Tablet(s) PO BID No Start Da te 07/06/2015 Inactive Premarin 1.25 mg Tab RxNorm: 089380 Tablet(s) PO 2 -W-, and 1 Kq-Ao-Szn-Sun No Start Date 05/03/2010 Inactive baclofen 20 mg tablet RxNorm: 887657 1 Tablet(s) PO TID as needed for muscle spasm No Start Date 07/22/2015 Inactive hydrocodone-acetaminophen 7.5 mg-650 mg Tab RxNorm: 733077 1 Tablet(s) PO Q4H as needed for pain No Start Date 03/20/2011 Inactive albuterol sulfate 1.25 mg/3 mL Neb Solution RxNorm: 123940 1 Unit Dose INH Q4H 2boxes No Start Date 09/06/2015 Inactive Butrans 20 mcg/hour Transderm Patch RxNorm: 384501 1 TD WEEKLY apply to skin weekly after removing previous. No Start Date 07/22/2013 Inactive Medrol (Dustin) 4 mg tablets in a dose pack RxNorm: 942441 Tablet(s) PO As Directed No Start Date 07/30/2016 Inactive hydrocodone-acetaminophen 10 mg-325 mg Tab RxNorm: 0314268 1-2 Tablet(s) PO TID as needed for pain No Start Date 03/19/2011 Inactive Klonopin 1 mg tablet RxNorm: 569343 1 Tablet(s) PO QHS No Start Date 02/28/2016 Inactive honey topical RxNorm: topical No Start Date 06/16/2018 Inactive Clonidine 0.2 mg Tab RxNorm: 473557 1 Tablet(s) PO TID No Start Date 01/12/2010 Inactive ketorolac 10 mg tablet RxNorm: 510862 1 Tablet(s) PO Q8H No Start D ate 03/18/2012 Inactive as needed for headache Singulair 10 mg Tab RxNorm: 588226 1 Tablet(s) PO QD No Start Date Inactive Premarin 1.25 mg Tab RxNorm: 217701 1 Tablet(s) PO QD No Start Date 1 Inactive Flonase 50 mcg/Actuation Nasal [place] RxNorm: 6910481 1 [place] CECELIA AL BID No Start Date 03/18/2012 Inactive Terbinafine 250 mg Tab RxNorm: 896646 1 Tablet(s) PO QD No Start Da te 04/03/2010 Inactive Fexofenadine 180 mg Tab RxNorm: 2804754 1 Tablet(s) PO QD No Start Date 09/06/2015 Inactive baclofen 20 mg tablet RxNorm: 680454 1 Tablet(s) PO TID as needed N o Start Date 05/25/2014 Inactive Diovan 160 mg Tab RxNorm: 508205 1 Tablet(s) PO QD No Start Date 09/12 Inactive mupirocin 2 % topical ointment RxNorm: 183244 1 Application TOP QID No Start Date 04/25/2016 Inactive ZOFRAN ODT 4 mg Tab, Rapid Dissolve RxNorm: 813899 1 Tablet(s) PO Q4H No Start Date 03/18/2012 Inactive as needed for nausea and vomiting Alprazolam 0.5 mg Tab RxNorm: 990670 1 Tablet(s) PO BID PRN No Star t Date 01/12/2010 Inactive cyclobenzaprine 10 mg tablet RxNorm: 039024 1 Tablet(s) PO TID as needed for muscle spasm No Start Date 10/08/2017 Inactive Albuterol 0.083% Aerosol Solution RxNorm: 1 Appl ication INH Q4H Use one ampule every 4 hrs with nebulizer as needed for shortness of breath. No Start Date 10/09/2010 Inactive lorazepam 1 mg tablet RxNorm: 896467 1 1/2 Tablet(s) PO QHS No Star t Date 02/02/2016 Inactive Melatonin 3 mg Tab RxNorm: 469658 Tablet(s) PO PRN No Start Date 07/11 Inactive Medrol (Dustin) 4 mg Tabs in a Dose Pack RxNorm: 050526 Tablet(s) PO N o Start Date 11/28/2010 Inactive lorazepam 1 mg tablet RxNorm: 164884 1 Tablet(s) PO QHS as need ed for sleep No Start Date 01/30/2016 Inactive hydrocodone-acetaminophen 10 mg-325 mg Tab RxNorm: 4201943 1-2 Tablet(s) PO QID as needed for severe pain No Start Date 03/24/2012 Inactive celecoxib 200 mg capsule RxNorm: 493915 1 Capsule(s) PO BID No Star t Date 06/26/2019 Inactive amlodipine 5 mg-benazepril 20 mg capsule RxNorm: 004687 1 Capsu le(s) PO QD No Start Date 04/10/2017 Inactive Bystolic 20 mg tablet RxNorm: 063981 1/2 Tablet(s) PO QAM No Start Date 01/23/2016 Inactive Bystolic 20 mg tablet RxNorm: 407809 1 Tablet(s) PO QAM No Start Da te 04/25/2016 Inactive Ambien 10 mg Tab RxNorm: 628840 1 Tablet(s) PO QHS No Start Date 05/11 Inactive Klor-Con 8 mEq Tab RxNorm: 099132 1 Tablet(s) PO QD when takes lasix No Start Date 03/06/2010 Inactive aspirin 81 mg tablet RxNorm: 209800 1 Tablet(s) PO QD No Start Date 0 01/29/2018 Inactive hydrocodone-acetaminophen 10 mg-325 mg Tab RxNorm: 7843017 1-2 T ablet(s) PO QID No Start Date 01/10/2012 Inactive Bystolic 10 mg tablet RxNorm: 060439 1 Tablet(s) PO QAM take one daily in the morning. No Start Date 05/28/2013 Inactive nystatin 100,000 unit/mL Oral Susp RxNorm: 268670 5 Milliliter( s) PO QID No Start Date 03/18/2012 Inactive swish and spit scopolamine 1.5 mg 72 hr Transderm Patch RxNorm: 541321 1 Unit Dose TD Q72H for motion sickness No Start Date 12/23/2013 Inactive Hydrocodone-Acetaminophen 10 mg-750 mg Tab RxNorm: 629729 1 Tablet(s) PO Q4H PRN No Start Date 01/12/2010 Inactive Soma 350 mg tablet RxNorm: 034713 1 Tablet(s) PO TID as needed for spasm No Start Date 01/12/2013 Inactive baclofen 10 mg tablet RxNorm: 483618 1 Tablet(s) PO TID as needed for muscle spasm No Start Date 09/18/2019 Inactive Soma 350 mg Tab RxNorm: 942621 1 Tablet(s) PO TID for spasm No Star t Date 01/31/2012 Inactive Co Q-10 400 mg capsule RxNorm: 251242 1 Capsule(s) PO QD No Start D ate 01/21/2019 Inactive nystatin 100,000 unit/gram topical cream RxNorm: 558281 Applica tion TOP BID No Start Date 03/22/2015 Inactive Exforge 5 mg-160 mg Tab RxNorm: 143812 1 Tablet(s) PO QD No Start D ate 10/09/2010 Inactive Hydrocodone-Acetaminophen 7.5 mg-650 mg Tab RxNorm: 201255 1 Ta blet(s) PO Q4H No Start Date 03/07/2010 Inactive Robaxin-750 750 mg Tab RxNorm: 372430 1-2 Tablet(s) PO TID prn spasm No Start Date 05/21/2011 Inactive amlodipine 5 mg tablet RxNorm: 647764 1 Tablet(s) PO QHS No Start D ate 09/29/2015 Inactive oxycodone-acetaminophen 10 mg-325 mg tablet RxNorm: 3703155 1-2 Tablet(s) PO Q6H No Start Date 06/16/2018 Inactive Triamterene-Hydrochlorothiazide 75 mg-50 mg Tab RxNorm: 3108 18 1 Tablet(s) PO QD No Start Date 02/08/2010 Inactive Alprazolam 0.5 mg Tab RxNorm: 919731 2 Tablet(s) PO QD prn No Start Date 03/07/2010 Inactive Bystolic 20 mg tablet RxNorm: 701959 1 Tablet(s) PO QAM No Start Da te 08/17/2015 Inactive ketorolac 10 mg tablet RxNorm: 154115 1 Tablet(s) PO QID prn he adache No Start Date 07/17/2012 Inactive acyclovir 800 mg Tab RxNorm: 334100 1 Tablet(s) PO BID No Start Date 03/18/2012 Inactive duloxetine 60 mg capsule,delayed release RxNorm: 182250 1 Capsu le(s) PO QD No Start Date 09/29/2015 Inactive Norvasc 5 mg tablet RxNorm: 804512 1 Tablet(s) PO QHS No Start Date 1 10/18/2014 Inactive promethazine 25 mg tablet RxNorm: 915880 1 Tablet(s) PO Q8H use sparingly No Start Date 07/22/2013 Inactive alprazolam 0.5 mg tablet RxNorm: 800996 3 Tablet(s) PO QHS No Start Date 06/06/2015 Inactive Lunesta 3 mg tablet RxNorm: 185750 1 Tablet(s) PO QHS No Start Date 0 09/20/2017 Inactive hydrocodone-acetaminophen 10 mg-325 mg Tab RxNorm: 6155424 1-2 Tablet(s) PO TID as needed for pain No Start Date 12/10/2011 Inactive Coricidin HBP Cough & Cold 4 mg-30 mg Tab RxNorm: 9599653 Tablet (s) PO PRN No Start Date 10/09/2010 Inactive Bactroban 2 % Ointment RxNorm: 135347 Application TOP QID to so res No Start Date 02/22/2012 Inactive Flonase 50 mcg/actuation Nasal [place] RxNorm: 764405 2 [place] QHS No Start Date 03/03/2014 Inactive Medication Administered No Medication Administered data Immunizations Vaccine Codes Date Status Tetanus, Diptheria, Pertussis CVX: 115 02/27/2014 Results Observation Observation Code Item Item Code Result Date S [facility] Location COMPLETE BLOOD COUNT [id number] WBC 10.7 10e9/L 018 Unknown COMPLETE BLOOD COUNT [id number] RBC 4.59 10e12/L 2017 Unknown COMPLETE BLOOD COUNT 1500719 HEMOGLOBIN 14.8 g/dL 12/11/19 18 Unknown COMPLETE BLOOD COUNT 1953506 HEMATOCRIT 44.9 % 12/11/19 18 Unknown COMPLETE BLOOD COUNT [id number] MCV 97.8 fL 8 Unknown COMPLETE BLOOD COUNT 0614037 MCH 32.2 pg 8 Unknown COMPLETE BLOOD COUNT 8589074 MCHC 33.0 g/dL 8 Unknown COMPLETE BLOOD COUNT [id number] PLATELET COUNT 261 10e9/L 10/2017 Unknown COMPLETE BLOOD COUNT 9151105 Mean Plt Volume 9.5 fL 10/2017 Unknown COMPLETE BLOOD COUNT 0567094 Neut Auto 59.9 % 8 Unknown COMPLETE BLOOD COUNT 6438478 Lymph Auto 27.4 % 12/11/19 18 Unknown COMPLETE BLOOD COUNT 8440855 Bailey Auto 8.2 % 8 Unknown COMPLETE BLOOD COUNT 1713627 RDW 13.3 % 8 Unknown COMPLETE BLOOD COUNT 6495561 Eos Auto 4.1 % 8 Unknown COMPLETE BLOOD COUNT 1308964 Baso Auto 0.4 % 8 Unknown COMPLETE BLOOD COUNT 6651259 Neutrophil Abs 6.41 10e9/L Unknown COMPLETE BLOOD COUNT 6324808 Lymphocyte Abs 2.93 10e9/L Unknown COMPLETE BLOOD COUNT [id number] Monocyte Abs 0.88 10e9/L 10/2017 Unknown COMPLETE BLOOD COUNT 0424047 Eosinophil Abs 0.44 10e9/L Unknown COMPLETE BLOOD COUNT 3526296 RDW-SD 46.2 fL 8 Unknown COMPLETE BLOOD COUNT [id number] Basophil Abs 0.04 10e9/L 10/2017 Unknown THYROID STIMULATING HORMONE 49501 TSH 4.015 uIU/mL 12/10/2017 Unknown COMPREHENSIVE METABOLIC 17031 AST 25 U/L 2017 Unknown COMPREHENSIVE METABOLIC 39020 ALT 17 U/L 2017 Unknown COMPREHENSIVE METABOLIC 86486 BUN 19 mg/dL 2017 Unknown COMPREHENSIVE METABOLIC 13395 ALBUMIN 4.0 g/dL 2017 Unknown COMPREHENSIVE METABOLIC 96306 CHLORIDE 91 mmol/L 2017 Unknown COMPREHENSIVE METABOLIC 58555 Bili Total 0.5 mg/dL 12/10 Unknown COMPREHENSIVE METABOLIC 83214 ALK PHOS 75 U/L 2017 Unknown COMPREHENSIVE METABOLIC 35525 SODIUM 136 mmol/L 12/10 Unknown COMPREHENSIVE METABOLIC 35534 CREATININE 1.05 mg/dL 10/2017 Unknown COMPREHENSIVE METABOLIC 62340 CALCIUM 8.9 mg/dL 2017 Unknown COMPREHENSIVE METABOLIC 97189 POTASSIUM 3.4 mmol/L 12/10 Unknown COMPREHENSIVE METABOLIC 20452 Total Protein 6.5 g/dL Unknown COMPREHENSIVE METABOLIC 45491 Glucose 138 mg/dL 2017 Unknown COMPREHENSIVE METABOLIC 63137 Bicarbonate 35 mmol/L 10/2017 Unknown COMPREHENSIVE METABOLIC 20378 AGAP 10 mmol/L 2017 Unknown MEAN GLUC 4360508 Calc Mean Gluc 171 mg/dL 12/10/2017 Unkn own LIPID GROUP 44275 Cholesterol 204 mg/dL 12/10/2017 Unkno wn LIPID GROUP 16732 Triglyceride 411 mg/dL 12/10/2017 Unkn own LIPID GROUP 57875 HDL CHOLESTEROL 50 mg/dL 12/10/2017 U nknown LIPID GROUP 10010 Chol/HDL Ratio 4.08 ratio 12/10/2017 U nknown LIPID GROUP 07877 NON-HDL Chol 154 mg/dL 12/10/2017 Unkn own LIPID GROUP 77107 LDL Cholesterol N/A Trig >400 018 Unknown GLYCOSYLATED HEMOGLOBIN TEST 66666 Hgb A1c 95033-6 7.6 % 0 12/10/2017 Unknown FREE T4 51035 T4 Free 1.40 ng/dL 12/10/2017 Unknown GFR CALC 0557883 GFR Non Afr Amr 55 mL/min 12/10/2017 Unk nown GFR CALC 2455285 GFR Afr Amr >60 mL/min 12/10/2017 Unknow n GFR CALC 7559745 GFR Non Afr Amr 48 mL/min 06/28/2017 Unk nown GFR CALC 2553041 GFR Afr Amr 59 mL/min 06/28/2017 Unknown COMPREHENSIVE METABOLIC 13903 AST 32 U/L 2016 Unknown COMPREHENSIVE METABOLIC 37605 ALT 22 U/L 2016 Unknown COMPREHENSIVE METABOLIC 77625 BUN 23 mg/dL 2016 Unknown COMPREHENSIVE METABOLIC 05895 ALBUMIN 4.7 g/dL 2016 Unknown COMPREHENSIVE METABOLIC 15041 CHLORIDE 89 mmol/L 2016 Unknown COMPREHENSIVE METABOLIC 48821 Bili Total 0.5 mg/dL 06/28 Unknown COMPREHENSIVE METABOLIC 74307 ALK PHOS 90 U/L 2016 Unknown COMPREHENSIVE METABOLIC 05212 SODIUM 135 mmol/L 06/28 Unknown COMPREHENSIVE METABOLIC 44836 CREATININE 1.18 mg/dL 06/10 Unknown COMPREHENSIVE METABOLIC 31473 CALCIUM 9.7 mg/dL 2016 Unknown COMPREHENSIVE METABOLIC 14049 POTASSIUM 3.5 mmol/L 06/28 Unknown COMPREHENSIVE METABOLIC 26182 Total Protein 7.7 g/dL Unknown COMPREHENSIVE METABOLIC 43655 Glucose 129 mg/dL 2016 Unknown COMPREHENSIVE METABOLIC 33143 Bicarbonate 34 mmol/L 06/10 Unknown COMPREHENSIVE METABOLIC 46498 AGAP 12 mmol/L 2016 Unknown LIPID GROUP 63368 HDL TEST 64 MG/DL 08/27/2014 Unknown LIPID GROUP 14052 TRIG 222 MG/DL 08/27/2014 Unknown LIPID GROUP 67615 TEST LDL 209 MG/DL 08/27/2014 Unknown LIPID GROUP 15859 CHOL 317 MG/DL 08/27/2014 Unknown LIPID GROUP 91449 RCHOL/HDL 4.95 RATIO 08/27/2014 Unknow n LIPID GROUP 84869 NON-HDL CH 253 MG/DL 08/27/2014 Unknow n GFR CALC 9323380 GFR AA >60 ML/MIN 08/27/2014 Unknown GFR CALC 7709463 GFR NON-AA >60 ML/MIN 08/27/2014 Unknown COMPLETE BLOOD COUNT 0375462 WBC 7.0 10e9/L 08/27/20 14 Unknown COMPLETE BLOOD COUNT 4347345 RBC 4.98 10e12/L 2013 Unknown COMPLETE BLOOD COUNT 5659605 HGB 15.6 g/dL 4 Unknown COMPLETE BLOOD COUNT 7458119 HCT DET 46.5 % 4 Unknown COMPLETE BLOOD COUNT 7984528 MCV 93.4 fL 4 Unknown COMPLETE BLOOD COUNT 6858851 MCH 31.3 pg 4 Unknown COMPLETE BLOOD COUNT 1953236 MCHC 33.5 g/dL 4 Unknown COMPLETE BLOOD COUNT 0484642 PLT 309 10e9/L 08/27/20 14 Unknown COMPLETE BLOOD COUNT 6763394 MPV 9.6 fL 4 Unknown COMPLETE BLOOD COUNT 7641159 CADEN % 57.2 % 4 Unknown COMPLETE BLOOD COUNT 6964488 LY % 33.2 % 4 Unknown COMPLETE BLOOD COUNT 1363265 MON % 7.3 % 4 Unknown COMPLETE BLOOD COUNT 3115042 EOS % 2.0 % 4 Unknown COMPLETE BLOOD COUNT 7051179 BASO % 0.3 % 4 Unknown COMPLETE BLOOD COUNT 5215232 RDW 13.7 % 4 Unknown COMPLETE BLOOD COUNT 7451000 ABS CADEN 4.00 10e9/L 014 Unknown COMPLETE BLOOD COUNT 0026628 ABS LYMPH 2.32 10e9/L 014 Unknown COMPLETE BLOOD COUNT 6635211 ABS MONO 0.51 10e9/L 014 Unknown COMPLETE BLOOD COUNT 4351067 ABS EOS 0.14 10e9/L 014 Unknown COMPLETE BLOOD COUNT 5619432 ABS BASO 0.02 10e9/L 014 Unknown COMPLETE BLOOD COUNT 0174482 RDW-SD 45.1 fL 4 Unknown COMPREHENSIVE METABOLIC 43690 AST 13 U/L 2013 Unknown COMPREHENSIVE METABOLIC 27123 ALT 11 IU/L 2013 Unknown COMPREHENSIVE METABOLIC 33536 BUN 23 MG/DL 2013 Unknown COMPREHENSIVE METABOLIC 76776 ALBUMIN 4.4 GM/DL 2013 Unknown COMPREHENSIVE METABOLIC 40259 CHLORIDE 99 MMOL/L 2013 Unknown COMPREHENSIVE METABOLIC 08894 BILI TOT 0.5 MG/DL 2013 Unknown COMPREHENSIVE METABOLIC 20392 ALK PHOS 56 U/L 2013 Unknown COMPREHENSIVE METABOLIC 99766 SODIUM 138 MMOL/L 08/27 Unknown COMPREHENSIVE METABOLIC 34550 CREATININE 0.95 MG/DL 08/10 Unknown COMPREHENSIVE METABOLIC 66653 CALCIUM 9.8 MG/DL 2013 Unknown COMPREHENSIVE METABOLIC 57017 POTASSIUM 3.5 MMOL/L 08/27 Unknown COMPREHENSIVE METABOLIC 26540 PROT TOT 6.8 GM/DL 2013 Unknown COMPREHENSIVE METABOLIC 29679 Glucose 90 MG/DL 2013 Unknown COMPREHENSIVE METABOLIC 78545 BICARB 34 MMOL/L 2013 Unknown COMPREHENSIVE METABOLIC 37378 ANION GAP 5 MEQ/L 2013 Unknown LIPASE 88876 LIPASE 11 IU/L 07/21/2014 Unknown AMYLASE 88846 AMYLASE 39 IU/L 07/21/2014 Unknown HEMOGLOBIN A1C (GLYCOSYLATED) 4661467 A1C [facility] 41142-5 6.2 % 03/05/2013 Unknown THYROID STIMULATING HORMONE 57943 TSH 6.986 uIU/ML 03/05/2013 Unknown COMPLETE BLOOD COUNT 1410840 WBC 12.7 10e9/L 013 Unknown COMPLETE BLOOD COUNT 9724466 RBC 4.53 10e12/L 2012 Unknown COMPLETE BLOOD COUNT 4406435 HGB 14.7 g/dL 3 Unknown COMPLETE BLOOD COUNT 8868431 HCT DET 43.1 % 3 Unknown COMPLETE BLOOD COUNT 3416519 MCV 95.1 fL 3 Unknown COMPLETE BLOOD COUNT 5907346 MCH 32.5 pg 3 Unknown COMPLETE BLOOD COUNT 4052946 MCHC 34.1 g/dL 3 Unknown COMPLETE BLOOD COUNT 4794649 PLT 346 10e9/L 03/05/20 13 Unknown COMPLETE BLOOD COUNT 3279179 MPV 9.5 fL 3 Unknown COMPLETE BLOOD COUNT 5956766 CADEN % 67.6 % 3 Unknown COMPLETE BLOOD COUNT 2589493 LY % 22.1 % 3 Unknown COMPLETE BLOOD COUNT 4393888 MON % 6.6 % 3 Unknown COMPLETE BLOOD COUNT 9768434 EOS % 3.3 % 3 Unknown COMPLETE BLOOD COUNT 3519624 BASO % 0.4 % 3 Unknown COMPLETE BLOOD COUNT 0485894 RDW 14.0 % 3 Unknown COMPLETE BLOOD COUNT 2203844 ABS CADEN 8.59 10e9/L 013 Unknown COMPLETE BLOOD COUNT 2100593 ABS LYMPH 2.81 10e9/L 013 Unknown COMPLETE BLOOD COUNT 4492881 ABS MONO 0.84 10e9/L 013 Unknown COMPLETE BLOOD COUNT 1798274 ABS EOS 0.42 10e9/L 013 Unknown COMPLETE BLOOD COUNT 2920589 ABS BASO 0.05 10e9/L 013 Unknown COMPLETE BLOOD COUNT 0676858 RDW-SD 46.0 fL 3 Unknown FREE T4 92952 FREE T4 1.14 NG/DL 03/05/2013 Unknown COMPREHENSIVE METABOLIC 18795 AST 17 U/L 2012 Unknown COMPREHENSIVE METABOLIC 40918 ALT 12 IU/L 2012 Unknown COMPREHENSIVE METABOLIC 62145 BUN 24 MG/DL 2012 Unknown COMPREHENSIVE METABOLIC 06286 ALBUMIN 4.2 GM/DL 2012 Unknown COMPREHENSIVE METABOLIC 45293 CHLORIDE 93 MMOL/L 2012 Unknown COMPREHENSIVE METABOLIC 30915 BILI TOT 0.5 MG/DL 2012 Unknown COMPREHENSIVE METABOLIC 80652 ALK PHOS 75 U/L 2012 Unknown COMPREHENSIVE METABOLIC 38293 SODIUM 141 MMOL/L 03/05 Unknown COMPREHENSIVE METABOLIC 24811 CREATININE 1.36 MG/DL 02/09 Unknown COMPREHENSIVE METABOLIC 73009 CALCIUM 9.2 MG/DL 2012 Unknown COMPREHENSIVE METABOLIC 93114 POTASSIUM 3.1 MMOL/L 03/05 Unknown COMPREHENSIVE METABOLIC 89388 PROT TOT 6.9 GM/DL 2012 Unknown COMPREHENSIVE METABOLIC 33981 Glucose 123 MG/DL 2012 Unknown COMPREHENSIVE METABOLIC 96865 BICARB 36 MMOL/L 2012 Unknown COMPREHENSIVE METABOLIC 71989 ANION GAP 12 MEQ/L 2012 Unknown GFR CALC 5332163 GFR AA 51.0L ML/MIN 03/05/2013 Unknow n GFR CALC 9645593 GFR NON-AA 42.0L ML/MIN 03/05/2013 Unkno wn COMPREHENSIVE METABOLIC 67775 AST 14 U/L 2012 Unknown COMPREHENSIVE METABOLIC 52466 ALT 11 IU/L 2012 Unknown COMPREHENSIVE METABOLIC 50363 BUN 16 MG/DL 2012 Unknown COMPREHENSIVE METABOLIC 93561 ALBUMIN 4.2 GM/DL 2012 Unknown COMPREHENSIVE METABOLIC 03085 CHLORIDE 98 MMOL/L 2012 Unknown COMPREHENSIVE METABOLIC 01180 BILI TOT 0.4 MG/DL 2012 Unknown COMPREHENSIVE METABOLIC 11588 ALK PHOS 77 U/L 2012 Unknown COMPREHENSIVE METABOLIC 62568 SODIUM 139 MMOL/L 09/25 Unknown COMPREHENSIVE METABOLIC 28626 CREATININE 0.86 MG/DL 09/10 Unknown COMPREHENSIVE METABOLIC 71408 CALCIUM 9.5 MG/DL 2012 Unknown COMPREHENSIVE METABOLIC 18591 POTASSIUM 3.8 MMOL/L 09/25 Unknown COMPREHENSIVE METABOLIC 45620 PROT TOT 6.8 GM/DL 2012 Unknown COMPREHENSIVE METABOLIC 91924 Glucose 91 MG/DL 2012 Unknown COMPREHENSIVE METABOLIC 63179 BICARB 32 MMOL/L 2012 Unknown COMPREHENSIVE METABOLIC 36743 ANION GAP 9 MEQ/L 2012 Unknown FREE T4 92341 FREE T4 0.98 NG/DL 09/25/2012 Unknown THYROID STIMULATING HORMONE 35970 TSH 1.736 uIU/ML 09/25/2012 Unknown C-REACTIVE PROTEIN (CRP) QUANT 83437 CRP 2.3 MG/DL 09/25/2012 Unknown COMPLETE BLOOD COUNT 1943243 WBC 11.9 10e9/L 013 Unknown COMPLETE BLOOD COUNT 5792387 RBC 4.87 10e12/L 2012 Unknown COMPLETE BLOOD COUNT 8023287 HGB 15.1 g/dL 3 Unknown COMPLETE BLOOD COUNT 2188505 HCT DET 44.8 % 3 Unknown COMPLETE BLOOD COUNT 3144182 MCV 92.0 fL 3 Unknown COMPLETE BLOOD COUNT 2751998 MCH 31.0 pg 3 Unknown COMPLETE BLOOD COUNT 8330632 MCHC 33.7 g/dL 3 Unknown COMPLETE BLOOD COUNT 0390302 PLT 343 10e9/L 09/25/19 13 Unknown COMPLETE BLOOD COUNT 6721168 MPV 9.0 fL 3 Unknown COMPLETE BLOOD COUNT 5540606 CADEN % 68.2 % 3 Unknown COMPLETE BLOOD COUNT 2350882 LY % 22.4 % 3 Unknown COMPLETE BLOOD COUNT 5098015 MON % 6.4 % 3 Unknown COMPLETE BLOOD COUNT 3655609 EOS % 2.7 % 3 Unknown COMPLETE BLOOD COUNT 7998737 BASO % 0.3 % 3 Unknown COMPLETE BLOOD COUNT 1211910 RDW 13.8 % 3 Unknown COMPLETE BLOOD COUNT 2966146 ABS CADEN 8.12 10e9/L 013 Unknown COMPLETE BLOOD COUNT 2736655 ABS LYMPH 2.67 10e9/L 013 Unknown COMPLETE BLOOD COUNT 1531111 ABS MONO 0.76 10e9/L 013 Unknown COMPLETE BLOOD COUNT 7584922 ABS EOS 0.32 10e9/L 013 Unknown COMPLETE BLOOD COUNT 6128085 ABS BASO 0.04 10e9/L 013 Unknown COMPLETE BLOOD COUNT 7220840 RDW-SD 45.6 fL 3 Unknown GFR CALC 3552534 GFR AA >60 ML/MIN 09/25/2012 Unknown GFR CALC 5614390 GFR NON-AA >60 ML/MIN 09/25/2012 Unknown ERYTHROCYTE SEDIMENTATION RATE 46207 ESR 19 MM/HR 05/06/2012 Unknown VITAMIN B 12 FOLIC ACID 64367|61128 VIT B 12 922 PG/ML 04/11 Unknown VITAMIN B 12 FOLIC ACID 36974|50346 FOLIC ACID 13.6 NG/ML Unknown URIC ACID 24064 URIC ACID 7.8 MG/DL 05/06/2012 Unknown COMPLETE BLOOD COUNT 58816 WBC 11.9 10e9/L 012 Unknown COMPLETE BLOOD COUNT 40226 RBC 5.30 10e12/L 2011 Unknown COMPLETE BLOOD COUNT 83918 HGB 16.6 g/dL 2 Unknown COMPLETE BLOOD COUNT 30652 HCT DET 47.2 % 2 Unknown COMPLETE BLOOD COUNT 98746 MCV 89.1 fL 2 Unknown COMPLETE BLOOD COUNT 52934 MCH 31.3 pg 2 Unknown COMPLETE BLOOD COUNT 84896 MCHC 35.2 g/dL 2 Unknown COMPLETE BLOOD COUNT 90888 PLT 362 10e9/L 05/06/20 12 Unknown COMPLETE BLOOD COUNT 18956 MPV 9.4 fL 2 Unknown COMPLETE BLOOD COUNT 12853 CADEN % 68.2 % 2 Unknown COMPLETE BLOOD COUNT 86454 LY % 22.0 % 2 Unknown COMPLETE BLOOD COUNT 05035 MON % 6.9 % 2 Unknown COMPLETE BLOOD COUNT 39628 EOS % 2.6 % 2 Unknown COMPLETE BLOOD COUNT 45688 BASO % 0.3 % 2 Unknown COMPLETE BLOOD COUNT 69527 RDW 12.8 % 2 Unknown COMPLETE BLOOD COUNT 46973 ABS CADEN 8.12 10e9/L 012 Unknown COMPLETE BLOOD COUNT 35201 ABS LYMPH 2.62 10e9/L 012 Unknown COMPLETE BLOOD COUNT 72405 ABS MONO 0.82 10e9/L 012 Unknown COMPLETE BLOOD COUNT 26791 ABS EOS 0.31 10e9/L 08/27/2 012 Unknown COMPLETE BLOOD COUNT 97630 ABS BASO 0.04 10e9/L 012 Unknown COMPLETE BLOOD COUNT 04711 RDW-SD 41.5 fL 2 Unknown GFR CALC 6674695 GFR AA >60 ML/MIN 05/06/2012 Unknown GFR CALC 5901008 GFR NON-AA 58.0L ML/MIN 05/06/2012 Unkno wn FREE T4 22553 FREE T4 1.15 NG/DL 05/06/2012 Unknown THYROID STIMULATING HORMONE 65922 TSH 1.568 uIU/ML 05/06/2012 Unknown COMPREHENSIVE METABOLIC 71959 AST 20 U/L 2011 Unknown COMPREHENSIVE METABOLIC 65749 ALT 12 IU/L 2011 Unknown COMPREHENSIVE METABOLIC 21950 BUN 20 MG/DL 2011 Unknown COMPREHENSIVE METABOLIC 92998 ALBUMIN 4.5 GM/DL 2011 Unknown COMPREHENSIVE METABOLIC 64740 CHLORIDE 91 MMOL/L 2011 Unknown COMPREHENSIVE METABOLIC 90306 BILI TOT 0.4 MG/DL 2011 Unknown COMPREHENSIVE METABOLIC 55261 ALK PHOS 73 U/L 2011 Unknown COMPREHENSIVE METABOLIC 95660 SODIUM 139 MMOL/L 05/06 Unknown COMPREHENSIVE METABOLIC 76563 CREATININE 1.02 MG/DL 04/11 Unknown COMPREHENSIVE METABOLIC 33054 CALCIUM 9.7 MG/DL 2011 Unknown COMPREHENSIVE METABOLIC 64815 POTASSIUM 3.1 MMOL/L 05/06 Unknown COMPREHENSIVE METABOLIC 93179 PROT TOT 7.3 GM/DL 2011 Unknown COMPREHENSIVE METABOLIC 94124 Glucose 118 MG/DL 2011 Unknown COMPREHENSIVE METABOLIC 38001 BICARB 33 MMOL/L 2011 Unknown COMPREHENSIVE METABOLIC 57992 ANION GAP 15 MEQ/L 2011 Unknown Procedures Procedure Codes Date ROUTINE VENIPUNCTURE CPT-4: 60544 09/29/2019 URINALYSIS NONAUTO W/O SCOPE CPT-4: 01761 09/29/2019 COMPREHEN METABOLIC PANEL CPT-4: 72528 09/29/2019 LIPID PANEL CPT-4: 77468 09/29/2019 A1C HPLC CPT-4: 67528 09/29/2019 ASSAY OF FREE THYROXINE CPT-4: 62596 09/29/2019 ASSAY THYROID STIM HORMONE CPT-4: 17290 09/29/2019 COMPLETE CBC W/AUTO DIFF WBC CPT-4: 66776 09/29/2019 URINALYSIS NONAUTO W/O SCOPE CPT-4: 85977 09/30/2018 MICROALBUMIN QUANTITATIVE CPT-4: 45472 09/30/2018 CEFTRIAXONE SODIUM INJECTION CPT-4: J0696 06/19/2018 THER/PROPH/DIAG INJ SC/IM CPT-4: 45559 06/19/2018 CEFTRIAXONE SODIUM INJECTION CPT-4: J0696 06/17/2018 THER/PROPH/DIAG INJ SC/IM CPT-4: 52746 06/17/2018 THER/PROPH/DIAG INJ SC/IM CPT-4: 11359 05/16/2018 KETOROLAC TROMETHAMINE INJ CPT-4: J1885 05/16/2018 ONDANSETRON HCL INJECTION CPT-4: J2405 05/16/2018 THER/PROPH/DIAG INJ SC/IM CPT-4: 38471 05/16/2018 ROUTINE VENIPUNCTURE CPT-4: 63448 03/20/2018 COMPREHEN METABOLIC PANEL CPT-4: 63047 03/20/2018 DEXAMETHASONE SODIUM PHOS CPT-4: J1100 02/11/2018 THER/PROPH/DIAG INJ SC/IM CPT-4: 51240 02/11/2018 TRIAMCINOLONE ACET INJ NOS CPT-4: J3301 02/11/2018 CEFTRIAXONE SODIUM INJECTION CPT-4: J0696 02/01/2018 THER/PROPH/DIAG INJ SC/IM CPT-4: 23365 02/01/2018 CEFTRIAXONE SODIUM INJECTION CPT-4: J0696 01/30/2018 THER/PROPH/DIAG INJ SC/IM CPT-4: 48798 01/30/2018 ROUTINE VENIPUNCTURE CPT-4: 94202 12/10/2017 ASSAY OF FREE THYROXINE CPT-4: 67525 12/10/2017 ASSAY THYROID STIM HORMONE CPT-4: 26199 12/10/2017 COMPREHEN METABOLIC PANEL CPT-4: 29794 12/10/2017 COMPLETE CBC W/AUTO DIFF WBC CPT-4: 01378 12/10/2017 LIPID PANEL CPT-4: 76338 12/10/2017 A1C HPLC CPT-4: 13907 12/10/2017 CEFTRIAXONE SODIUM INJECTION CPT-4: J0696 12/10/2017 THER/PROPH/DIAG INJ SC/IM CPT-4: 24588 12/10/2017 CEFTRIAXONE SODIUM INJECTION CPT-4: J0696 12/07/2017 THER/PROPH/DIAG INJ SC/IM CPT-4: 79598 12/07/2017 DEXAMETHASONE SODIUM PHOS CPT-4: J1100 12/07/2017 THER/PROPH/DIAG INJ SC/IM CPT-4: 49288 12/07/2017 CEFTRIAXONE SODIUM INJECTION CPT-4: J0696 10/08/2017 THER/PROPH/DIAG INJ SC/IM CPT-4: 85985 10/08/2017 CEFTRIAXONE SODIUM INJECTION CPT-4: J0696 09/21/2017 THER/PROPH/DIAG INJ SC/IM CPT-4: 76564 09/21/2017 CEFTRIAXONE SODIUM INJECTION CPT-4: J0696 09/20/2017 THER/PROPH/DIAG INJ SC/IM CPT-4: 84733 09/20/2017 REMOVAL OF NAIL PLATE CPT-4: 33819 08/29/2017 THER/PROPH/DIAG INJ SC/IM CPT-4: 59736 08/29/2017 TRIAMCINOLONE ACET INJ NOS CPT-4: J3301 08/29/2017 CEFTRIAXONE SODIUM INJECTION CPT-4: J0696 08/29/2017 THER/PROPH/DIAG INJ SC/IM CPT-4: 59902 08/29/2017 DESTRUCT PREMALG LESION (Cryosurgery) CPT-4: 82593 ROUTINE VENIPUNCTURE CPT-4: 16901 06/27/2017 ASSAY OF FREE THYROXINE CPT-4: 23721 06/27/2017 ASSAY THYROID STIM HORMONE CPT-4: 95745 06/27/2017 COMPREHEN METABOLIC PANEL CPT-4: 19871 06/27/2017 COMPLETE CBC W/AUTO DIFF WBC CPT-4: 04373 06/27/2017 EXC TR-EXT B9+REECE 0.5 CM< CPT-4: 83764 01/24/2017 THER/PROPH/DIAG INJ SC/IM CPT-4: 94513 08/02/2016 DEXAMETHASONE SODIUM PHOS CPT-4: J1100 08/02/2016 DESTRUCT PREMALG LESION (Cryosurgery) CPT-4: 67197 EXC TR-EXT B9+REECE 0.5 CM< CPT-4: 81849 08/01/2016 AEROBIC WOUND CULTURE & STN CPT-4: 75541 07/06/2016 CEFTRIAXONE SODIUM INJECTION CPT-4: J0696 05/25/2016 THER/PROPH/DIAG INJ SC/IM CPT-4: 29342 05/25/2016 THER/PROPH/DIAG INJ SC/IM CPT-4: 87396 04/26/2016 DEXAMETHASONE SODIUM PHOS CPT-4: J1100 04/26/2016 CEFTRIAXONE SODIUM INJECTION CPT-4: J0696 04/26/2016 THER/PROPH/DIAG INJ SC/IM CPT-4: 23117 04/26/2016 THER/PROPH/DIAG INJ SC/IM CPT-4: 28797 02/09/2016 TRIAMCINOLONE ACET INJ NOS CPT-4: J3301 02/09/2016 URINALYSIS NONAUTO W/O SCOPE CPT-4: 47477 01/24/2016 URINE CULTURE/ COLONY COUNT CPT-4: 11630 01/24/2016 THER/PROPH/DIAG INJ SC/IM CPT-4: 46077 12/08/2015 TRIAMCINOLONE ACET INJ NOS CPT-4: J3301 12/08/2015 THER/PROPH/DIAG INJ SC/IM CPT-4: 80166 10/07/2015 TRIAMCINOLONE ACET INJ NOS CPT-4: J3301 10/07/2015 DESTRUCT PREMALG LESION (Cryosurgery) CPT-4: 70948 THER/PROPH/DIAG INJ SC/IM CPT-4: 16123 03/16/2015 METHYLPREDNISOLONE 40 MG INJ CPT-4: J1030 03/16/2015 DESTRUCT PREMALG LESION (Cryosurgery) CPT-4: 95358 THER/PROPH/DIAG INJ SC/IM CPT-4: 38513 09/11/2014 METHYLPREDNISOLONE 40 MG INJ CPT-4: J1030 09/11/2014 TRIAMCINOLONE ACET INJ NOS CPT-4: J3301 09/11/2014 CEFTRIAXONE SODIUM INJECTION CPT-4: J0696 09/11/2014 THER/PROPH/DIAG INJ SC/IM CPT-4: 94186 09/11/2014 ROUTINE VENIPUNCTURE CPT-4: 68868 08/27/2014 COMPREHEN METABOLIC PANEL CPT-4: 66707 08/27/2014 COMPLETE CBC W/AUTO DIFF WBC CPT-4: 01965 08/27/2014 LIPID PANEL CPT-4: 13963 08/27/2014 ROUTINE VENIPUNCTURE CPT-4: 72925 07/21/2014 ASSAY OF AMYLASE CPT-4: 26008 07/21/2014 ASSAY OF LIPASE CPT-4: 95296 07/21/2014 THER/PROPH/DIAG INJ SC/IM CPT-4: 00692 07/15/2014 TRIAMCINOLONE ACET INJ NOS CPT-4: J3301 07/15/2014 ROUTINE VENIPUNCTURE CPT-4: 56216 05/14/2014 ASSAY OF FREE THYROXINE CPT-4: 69002 05/14/2014 ASSAY THYROID STIM HORMONE CPT-4: 68685 05/14/2014 COMPREHEN METABOLIC PANEL CPT-4: 53115 05/14/2014 COMPLETE CBC W/AUTO DIFF WBC CPT-4: 69928 05/14/2014 LIPID PANEL CPT-4: 00435 05/14/2014 CEFTRIAXONE SODIUM INJECTION CPT-4: J0696 04/21/2014 THER/PROPH/DIAG INJ SC/IM CPT-4: 08148 04/21/2014 THER/PROPH/DIAG INJ SC/IM CPT-4: 98474 04/21/2014 TRIAMCINOLONE ACET INJ NOS CPT-4: J3301 04/21/2014 THER/PROPH/DIAG INJ SC/IM CPT-4: 61817 03/04/2014 METHYLPREDNISOLONE 40 MG INJ CPT-4: J1030 03/04/2014 TRIAMCINOLONE ACET INJ NOS CPT-4: J3301 03/04/2014 CEFTRIAXONE SODIUM INJECTION CPT-4: J0696 03/04/2014 THER/PROPH/DIAG INJ SC/IM CPT-4: 09917 03/04/2014 TDAP VACCINE 7 YRS/> IM CPT-4: 18678 02/27/2014 IMMUNIZATION ADMIN CPT-4: 65283 02/27/2014 DESTRUCT PREMALG LESION (Cryosurgery) CPT-4: 36515 DESTRUCT PREMALG LES 2-14 CPT-4: 93393 01/13/2014 THER/PROPH/DIAG INJ SC/IM CPT-4: 20580 10/21/2013 METHYLPREDNISOLONE 40 MG INJ CPT-4: J1030 10/21/2013 TRIAMCINOLONE ACET INJ NOS CPT-4: J3301 10/21/2013 CEFTRIAXONE SODIUM INJECTION CPT-4: J0696 08/27/2013 THER/PROPH/DIAG INJ SC/IM CPT-4: 89564 08/27/2013 THER/PROPH/DIAG INJ SC/IM CPT-4: 59851 08/27/2013 METHYLPREDNISOLONE 40 MG INJ CPT-4: J1030 08/27/2013 TRIAMCINOLONE ACET INJ NOS CPT-4: J3301 08/27/2013 THER/PROPH/DIAG INJ SC/IM CPT-4: 61590 06/23/2013 METHYLPREDNISOLONE 40 MG INJ CPT-4: J1030 06/23/2013 TRIAMCINOLONE ACET INJ NOS CPT-4: J3301 06/23/2013 THER/PROPH/DIAG INJ SC/IM CPT-4: 89853 05/26/2013 METHYLPREDNISOLONE 40 MG INJ CPT-4: J1030 05/26/2013 TRIAMCINOLONE ACET INJ NOS CPT-4: J3301 05/26/2013 ROUTINE VENIPUNCTURE CPT-4: 42789 03/05/2013 ASSAY OF FREE THYROXINE CPT-4: 19573 03/05/2013 ASSAY THYROID STIM HORMONE CPT-4: 98485 03/05/2013 COMPREHEN METABOLIC PANEL CPT-4: 19753 03/05/2013 COMPLETE CBC W/AUTO DIFF WBC CPT-4: 57829 03/05/2013 A1C GLYCOSYLATED HEMOGLOBIN TEST CPT-4: 73535 013 DRAIN/INJECT JOINT/BURSA CPT-4: 79866 12/04/2012 METHYLPREDNISOLONE 40 MG INJ CPT-4: J1030 12/04/2012 TRIAMCINOLONE ACET INJ NOS CPT-4: J3301 12/04/2012 CEFTRIAXONE SODIUM INJECTION CPT-4: J0696 11/21/2012 THER/PROPH/DIAG INJ SC/IM CPT-4: 99737 11/21/2012 THER/PROPH/DIAG INJ SC/IM CPT-4: 33900 10/14/2012 METHYLPREDNISOLONE 40 MG INJ CPT-4: J1030 10/14/2012 TRIAMCINOLONE ACET INJ NOS CPT-4: J3301 10/14/2012 URINALYSIS NONAUTO W/O SCOPE CPT-4: 81833 09/27/2012 ROUTINE VENIPUNCTURE CPT-4: 49262 09/25/2012 ASSAY OF FREE THYROXINE CPT-4: 48378 09/25/2012 ASSAY THYROID STIM HORMONE CPT-4: 58409 09/25/2012 COMPREHEN METABOLIC PANEL CPT-4: 59427 09/25/2012 COMPLETE CBC W/AUTO DIFF WBC CPT-4: 33224 09/25/2012 C-REACTIVE PROTEIN CPT-4: 36350 09/25/2012 THER/PROPH/DIAG INJ SC/IM CPT-4: 61224 08/29/2012 METHYLPREDNISOLONE 40 MG INJ CPT-4: J1030 08/29/2012 TRIAMCINOLONE ACET INJ NOS CPT-4: J3301 08/29/2012 DESTRUCT PREMALG LESION (Cryosurgery) CPT-4: 65025 THER/PROPH/DIAG INJ SC/IM CPT-4: 13312 05/06/2012 METHYLPREDNISOLONE 40 MG INJ CPT-4: J1030 05/06/2012 TRIAMCINOLONE ACET INJ NOS CPT-4: J3301 05/06/2012 VITAMIN B 12 FOLIC ACID CPT-4: 06753|72475 05/06/2012 RBC SED RATE AUTOMATED CPT-4: 46398 05/06/2012 ROUTINE VENIPUNCTURE CPT-4: 98887 05/06/2012 ASSAY OF FREE THYROXINE CPT-4: 23284 05/06/2012 ASSAY THYROID STIM HORMONE CPT-4: 15979 05/06/2012 COMPREHEN METABOLIC PANEL CPT-4: 50739 05/06/2012 COMPLETE CBC W/AUTO DIFF WBC CPT-4: 55577 05/06/2012 ASSAY OF BLOOD/URIC ACID CPT-4: 89133 05/06/2012 THER/PROPH/DIAG INJ SC/IM CPT-4: 83238 03/19/2012 KETOROLAC TROMETHAMINE INJ CPT-4: J1885 03/19/2012 KETOROLAC TROMETHAMINE INJ CPT-4: J1885 01/30/2012 THER/PROPH/DIAG INJ SC/IM CPT-4: 54932 01/30/2012 PROMETHAZINE HCL INJECTION CPT-4: J2550 01/30/2012 THER/PROPH/DIAG INJ SC/IM CPT-4: 54133 01/24/2012 METHYLPREDNISOLONE 40 MG INJ CPT-4: J1030 01/24/2012 TRIAMCINOLONE ACET INJ NOS CPT-4: J3301 01/24/2012 THER/PROPH/DIAG INJ SC/IM CPT-4: 53408 09/13/2011 KETOROLAC TROMETHAMINE INJ CPT-4: J1885 09/13/2011 THER/PROPH/DIAG INJ SC/IM CPT-4: 63794 09/13/2011 PROMETHAZINE HCL INJECTION CPT-4: J2550 09/13/2011 CEFTRIAXONE SODIUM INJECTION CPT-4: J0696 07/20/2011 THER/PROPH/DIAG INJ SC/IM CPT-4: 17944 07/20/2011 THER/PROPH/DIAG INJ SC/IM CPT-4: 12242 07/20/2011 METHYLPREDNISOLONE INJECTION CPT-4: J2930 07/20/2011 URINALYSIS NONAUTO W/O SCOPE CPT-4: 23237 05/09/2011 CEFTRIAXONE SODIUM INJECTION CPT-4: J0696 05/09/2011 THER/PROPH/DIAG INJ SC/IM CPT-4: 87480 05/09/2011 THER/PROPH/DIAG INJ SC/IM CPT-4: 66076 05/09/2011 PROMETHAZINE HCL INJECTION CPT-4: J2550 05/09/2011 HYDRATION IV INFUSION INIT CPT-4: 74499 05/09/2011 DESTRUCT PREMALG LESION (Cryosurgery) CPT-4: 70342 DESTRUCT PREMALG LES 2-14 CPT-4: 59518 07/19/2010 REMOVAL OF SKIN TAGS <W/15 CPT-4: 08476 05/30/2010 THER/PROPH/DIAG INJ SC/IM CPT-4: 63411 04/05/2010 CEFTRIAXONE SODIUM INJECTION CPT-4: J0696 04/05/2010 TRIAMCINOLONE ACET INJ NOS CPT-4: J3301 04/05/2010 METHYLPREDNISOLONE 40 MG INJ CPT-4: J1030 04/05/2010 THER/PROPH/DIAG INJ SC/IM CPT-4: 93133 04/05/2010 TRIAMCINOLONE ACET INJ NOS CPT-4: J3301 03/09/2010 METHYLPREDNISOLONE 40 MG INJ CPT-4: J1030 03/09/2010 THER/PROPH/DIAG INJ SC/IM CPT-4: 47677 03/09/2010 THER/PROPH/DIAG INJ SC/IM CPT-4: 84300 03/09/2010 CEFTRIAXONE SODIUM INJECTION CPT-4: J0696 03/09/2010 Vital Signs Date Vital 05/28/2019 Blood Pressure 1: 126/82 Code: 8480-6 BMI: 35.0 Code: 84610-4 Heart Rate 1: 88 bpm Height: 5'4" [...] 1: 128/90 Code: 8480-6 BMI: 37.2 Code: 60187-5 Heart Rate 1: 84 bpm Height: 5'4" Respiratory Rate: 20 bpm SpO2: 95% Tempera ture: 36.6 (C) / 97.8 (F) Weight: 217 lbs 08/27/2018 Blood Pressure 1: 128/88 Code: 8480-6 BMI: 38.3 Code: 48851-3 Heart Rate 1: 84 bpm Height: 5'4" [...] 1: 119/72 Code: 8480-6 BMI: 37.4 Code: 98209-4 Heart Rate 1: 82 bpm Height: 5'4" Respiratory Rate: 12 bpm SpO2: 94% Tempera ture: 35.2 (C) / 95.4 (F) Weight: 218 lbs 12/18/2017 Blood Pressure 1: 128/86 Code: 8480-6 BMI: 37.8 Code: 33107-0 Heart Rate 1: 84 bpm Height: 5'4" [...] 1: 128/82 Code: 8480-6 BMI: 35.5 Code: 83313-4 Heart Rate 1: 84 bpm Height: 5'4" [...] 1: 128/82 Code: 8480-6 BMI: 30.2 Code: 59258-5 Heart Rate 1: 80 bpm Height: 5'4" [...] 1: 128/86 Code: 8480-6 BMI: 32.8 Code: 70410-8 Heart Rate 1: 66 bpm Height: 5'4" Respiratory Rate: 18 bpm Temperature: 36 .3 (C) / 97.3 (F) Weight: 191 lbs 06/23/2013 Blood Pressure 1: 132/94 Code: 8480-6 BMI: 34.0 Code: 08127-6 Heart Rate 1: 84 bpm Height: 5'4" Respiratory Rate: 20 bpm Temperature: 36 .8 (C) / 98.2 (F) Weight: 198 lbs 05/26/2013 Blood Pressure 1: 114/80 Code: 8480-6 BMI: 35.0 Code: 98865-4 Heart Rate 1: 80 bpm Height: 5'4" Respiratory Rate: 20 bpm Temperature: 36 .4 (C) / 97.6 (F) Weight: 204 lbs 04/16/2013 Blood Pressure 1: 114/82 Code: 8480-6 BMI: 36.7 Code: 04189-2 Heart Rate 1: 84 bpm Height: 5'4" Respiratory Rate: 20 bpm Temperature: 36 .7 (C) / 98.0 (F) Weight: 214 lbs 03/05/2013 Blood Pressure 1: 136/90 Code: 8480-6 BMI: 37.1 Code: 37100-7 Heart Rate 1: 84 bpm Height: 5'4" [...] 1: 168/114 Code: 8480-6 BMI: 36.2 Code: 61747-0 Heart Rate 1: 104 bpm Height: 5'4" Respiratory Rate: 20 bpm Temperature: 36 .8 (C) / 98.2 (F) Weight: 211 lbs 11/22/2012 Blood Pressure 1: 128/90 Code: 8480-6 Heart Rate 1: 88 bpm Respiratory Rate: 20 bpm SpO2: 96% Temperature: 36.8 (C) / 98.2 (F) 11/21/2012 Blood Pressure 1: 146/100 Code: 8480-6 BMI: 35.7 Code: 23543-2 Heart Rate 1: 96 bpm Height: 5'4" [...] 1: 138/100 Code: 8480-6 BMI: 35.7 Code: 19233-2 Heart Rate 1: 96 bpm Height: 5'4" Respiratory Rate: 20 bpm Temperature: 36 .8 (C) / 98.2 (F) Weight: 208 lbs 05/06/2012 Blood Pressure 1: 154/102 Code: 8480-6 BMI: 34.7 Code: 11195-6 Heart Rate 1: 116 bpm Height: 5'4" Respiratory Rate: 20 bpm Temperature: 36 .8 (C) / 98.2 (F) Weight: 202 lbs 04/03/2012 Blood Pressure 1: 134/94 Code: 8480-6 BMI: 34.8 Code: 13940-9 Heart Rate 1: 108 bpm Height: 5'4" Respiratory Rate: 20 bpm Temperature: 36 .8 (C) / 98.2 (F) Weight: 203 lbs 03/19/2012 Blood Pressure 1: 148/106 Code: 8480-6 BMI: 35.0 Code: 19522-2 Heart Rate 1: 100 bpm Height: 5'4" Respiratory Rate: 20 bpm Temperature: 36 .6 (C) / 97.9 (F) Weight: 204 lbs 02/22/2012 Blood Pressure 1: 146/94 Code: 8480-6 He art Rate 1: 88 bpm 02/21/2012 Blood Pressure 1: 172/120 Code: 8480-6 B lood Pressure 2: 152/106 Code: 8480-6 Heart Rate 1: 116 bpm 02/20/2012 Blood Pressure 1: 160/100 Code: 8480-6 BMI: 32.0 Code: 66056-2 Heart Rate 1: 84 bpm Height: 5'7" Temperature: 36.5 (C) / 97.7 (F) Weight: 204 lbs 01/30/2012 Blood Pressure 1: 152/110 Code: 8480-6 BMI: 32.0 Code: 36619-6 Heart Rate 1: 116 bpm Height: 5'7" Respiratory Rate: 20 bpm Temperature: 37 .0 (C) / 98.6 (F) Weight: 204 lbs 01/24/2012 Blood Pressure 1: 146/100 Code: 8480-6 BMI: 32.0 Code: 26718-0 Heart Rate 1: 100 bpm Height: 5'7" Respiratory Rate: 20 bpm Temperature: 36 .7 (C) / 98.0 (F) Weight: 204 lbs 01/10/2012 Blood Pressure 1: 156/94 Code: 8480-6 BMI: 32.6 Code: 75216-8 Heart Rate 1: 72 bpm Height: 5'7" Respiratory Rate: 20 bpm Temperature: 36 .8 (C) / 98.2 (F) Weight: 208 lbs 12/11/2011 Blood Pressure 1: 146/100 Code: 8480-6 Heart Rat e 1: 116 bpm Height: 5'7" Respiratory Rate: 20 bpm Temperature: 36.9 (C) / 98.4 (F) We ight: 11/09/2011 Blood Pressure 1: 148/96 Code: 8480-6 BMI: 32.1 Code: 80680-6 Heart Rate 1: 116 bpm Height: 5'7" Respiratory Rate: 20 bpm Temperature: 36 .7 (C) / 98.0 (F) Weight: 205 lbs 09/13/2011 Blood Pressure 1: 126/88 Code: 8480-6 Heart Rate 1: 88 bpm Height: 5'7" Respiratory Rate: 20 bpm Temperature: 36.9 (C) / 98.4 (F) We ight: 08/31/2011 Blood Pressure 1: 118/82 Code: 8480-6 BMI: 32.0 Code: 71988-0 Heart Rate 1: 80 bpm Height: 5'7" Temperature: 36.4 (C) / 97.6 (F) Weight: 204 lbs 07/06/2011 Blood Pressure 1: 128/86 Code: 8480-6 BMI: 30.9 Code: 40374-1 Heart Rate 1: 92 bpm Height: 5'7" Respiratory Rate: 20 bpm Temperature: 36 .9 (C) / 98.4 (F) Weight: 197 lbs 06/06/2011 Blood Pressure 1: 112/74 Code: 8480-6 BMI: 31.0 Code: 97670-2 Heart Rate 1: 72 bpm Height: 5'7" [...] 1: 128/92 Code: 8480-6 BMI: 33.6 Code: 36099-0 Heart Rate 1: 104 bpm Height: 5'4" [...] Diagnosis: Mixed hyperlipidemia[ICD10: E78.2] María Elena [facility] [employer] CPT-4: 80437 09/29/2019 ([id number]) OFFICE/OUTPATIENT VISIT EST Diagnosis: Essential (primary) hypertension[ICD10: I10] Diagnosis: Fall from bed, sequela[ICD10: W06.XXXS] María Elena APPIAH DO [employer] CPT-4: 42337 05/28/2019 ([id number]) NURSE/OUTPATIENT VISIT EST Diagnosis: Essential (primary) hypertension[ICD10: I10] María Elena APPIAH DO [facility] CPT-4: 54792 05/19/2019 ([id number]) OFFICE/OUTPATIENT VISIT EST Diagnosis: Essential (primary) hypertension[ICD10: I10] Diagnosis: Type 2 diabetes mellitus with hyperglycemia[ICD10: E11.65] Diagnosis: Intervertebral disc disorders with radiculopathy, 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] Diagnosis: Hormone replacement therapy[ICD10: Z79.890] María Elena APPIAH DO [facility] CPT-4: 63021 01/22/2019 ([id number]) OFFICE/OUTPATIENT VISIT EST Diagnosis: Essential (primary) hypertension[ICD10: I10] Diagnosis: Type 2 diabetes mellitus with hyperglycemia[ICD10: E11.65] María Elena APPIAH [facility] CPT-4: 82110 09/30/2018 ([id number]) OFFICE/OUTPATIENT VISIT EST Diagnosis: Pain in left elbow[ICD10: M25.522] Diagnosis: Acute stress reaction[ICD10: F43.0] Diagnosis: Primary insomnia[ICD10: F51.01] Diagnosis: Abnormal weight gain[ICD10: R63.5] María Elena APPIAH [facility] CPT-4: 67037 08/27/2018 ([id number]) OFFICE/OUTPATIENT VISIT EST Diagnosis: Acute recurrent sinusitis, unspecified[ICD10: J01.91] Diagnosis: Follicular disorder, unspecified[ICD10: L73.9] Diagnosis: Tinea corporis[ICD10: B35.4] María Elena APPIAH [facility] CPT-4: 50474 08/09/2018 ([id number]) OFFICE/OUTPATIENT VISIT EST Diagnosis: Tinea corporis[ICD10: B35.4] Diagnosis: Anxiety disorder, unspecified[ICD10: F41.9] Diagnosis: Menopausal and female climacteric states[ICD10: N95.1] María Elena APPIAH [facility] CPT-4: 16821 07/22/2018 ([id number]) NURSE/OUTPATIENT VISIT EST Diagnosis: Cellulitis of right toe[ICD10: L03.031] María Elena APPIAH DO [facility] CPT-4: 65872 06/19/2018 ([id number]) OFFICE/OUTPATIENT VISIT EST Diagnosis: Cellulitis of right toe[ICD10: L03.031] Kathleen APPIAH DO [facility] CPT-4: 19657 06/17/2018 ([id number]) OFFICE/OUTPATIENT VISIT EST Diagnosis: Migraine without aura, intractable, without status migrainosus[ICD10: G43.019] Diagnosis: Zoster without complications[ICD10: B02.9] Kathleen APPIAH DO [facility] CPT-4: 63815 05/16/2018 ([id number]) OFFICE/OUTPATIENT VISIT EST Diagnosis: Cellulitis of right lower limb[ICD10: L03.115] Kathleen APPIAH DO [facility] CPT-4: 72649 03/20/2018 ([id number]) OFFICE/OUTPATIENT VISIT EST Diagnosis: Cellulitis of right lower limb[ICD10: L03.115] Kathleen APPIAH DO [facility] CPT-4: 72734 03/18/2018 ([id number]) OFFICE/OUTPATIENT VISIT EST Diagnosis: Cellulitis of right lower limb[ICD10: L03.115] Kathleen APPIAH DO [facility] CPT-4: 23110 03/15/2018 ([id number]) OFFICE/OUTPATIENT VISIT EST Diagnosis: Acute sinusitis, unspecified[ICD10: J01.90] Kathleen APPIAH DO [facility] CPT-4: 88906 02/11/2018 ([id number]) NURSE/OUTPATIENT VISIT EST Diagnosis: Otitis media, unspecified, right ear[ICD10: H66.91] María Elena APPIAH DO [facility] CPT-4: 73572 02/01/2018 ([id number]) OFFICE/OUTPATIENT VISIT EST Diagnosis: Acute suppurative otitis media without spontaneous rupture of ear drum, left ear[ICD10: H66.002] Diagnosis: Abnormal weight gain[ICD10: R63.5] Diagnosis: Intervertebral disc disorders with radiculopathy, 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] Kathleen APPIAH DO [facility] CPT-4: 99 214 01/30/2018 ([id number]) PREV VISIT EST AGE 40-64 Diagnosis: Encounter for general adult medical examination without abnormal findings[ICD10: Z00.00] Diagnosis: Essential (primary) hypertension[ICD10: I10] Diagnosis: Mixed hyperlipidemia[ICD10: E78.2] Diagnosis: Type 2 diabetes mellitus with hyperglycemia[ICD10: E11.65] Diagnosis: 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] María Elena ELLISLINE Fabiola APPIAH [facility] CPT-4: 01137 12/18/2017 ([id number]) OFFICE/OUTPATIENT VISIT EST Diagnosis: Cellulitis of right toe[ICD10: L03.031] Diagnosis: Mixed hyperlipidemia[ICD10: E78.2] Diagnosis: Essential (primary) hypertension[ICD10: I10] Diagnosis: Hyperglycemia, unspecified[ICD10: R73.9] Diagnosis: Nontoxic goiter, 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] María Elena Seamusdawn MARÍA ELENA Fabiola APPIAH [facility] CPT-4: 95567 12/10/2017 ([id number]) OFFICE/OUTPATIENT VISIT EST Diagnosis: Cellulitis of right toe[ICD10: L03.031] Diagnosis: Acute sinusitis, unspecified[ICD10: J01.90] Kathleen APPIAH DO [facility] CPT-4: 59645 12/07/2017 OFFICE/OUTPATIENT VISIT EST Diagnosis: Acute maxillary sinusitis, unspecified[ICD10: J01.00] Kathleen APPIAH [facility] CPT-4: 38472 10/08/2017 ([id number]) OFFICE/OUTPATIENT VISIT EST Diagnosis: Cellulitis of left toe[ICD10: L03.032] María Elena MARIN Fabiola APPIAH [facility] CPT-4: 75578 09/21/2017 ([id number]) OFFICE/OUTPATIENT VISIT EST Diagnosis: Insomnia, unspecified[ICD10: G47.00] Diagnosis: Major depressive disorder, single episode, unspecified[ICD10: F32.9] Diagnosis: Anxiety disorder, unspecified[ICD10: F41.9] Diagnosis: Cellulitis of left toe[ICD10: L03.032] Diagnosis: Snoring[ICD10: R06.83] Kathleen APPIAH DO [facility] CPT-4: 91795 09/20/2017 ([id number]) OFFICE/OUTPATIENT VISIT EST Diagnosis: Cellulitis of left toe[ICD10: L03.032] María Elena Seamusdawn MARLIN [facility] CPT-4: 34963 07/19/2017 OFFICE/OUTPATIENT VISIT EST Diagnosis: Chronic sinusitis, unspecified[ICD10: J32.9] Diagnosis: Generalized hyperhidrosis[ICD10: R61] Kathleen ORTA [facility] CPT-4: 80911 06/27/2017 ([id number]) OFFICE/OUTPATIENT VISIT EST Diagnosis: Intervertebral disc disorders with radiculopathy, 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] Diagnosis: Primary insomnia[ICD10: F51.01] Diagnosis: Other fatigue[ICD10: R53.83] María Elena ELLISLINE LucioJj TD [facility] CPT-4: 08616 04/10/2017 ([id number]) OFFICE/OUTPATIENT VISIT EST Diagnosis: Primary insomnia[ICD10: F51.01] Diagnosis: Localized edema[ICD10: R60.0] Diagnosis: 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] María Elena Seamusdawn MARÍA ELENA LucioJj TD [facility] CPT-4: 20975 12/13/2016 ([id number]) OFFICE/OUTPATIENT VISIT EST Diagnosis: Primary insomnia[ICD10: F51.01] Diagnosis: Cyanosis[ICD10: R23.0] María Elena Seamusdawn MONTEROMARÍA ELENA LucioJj CIRO Bazzi [facility] CPT-4: 96729 11/01/2016 ([id number]) PREV VISIT EST AGE 40-64 Diagnosis: Encounter for gynecological examination (general) (routine) without abnormal findings[ICD10: Z01.419] Diagnosis: Encounter for routine child health examination without abnormal findings[ICD10: Z00.129] María Elena APPIAH DO [facility] CPT-4: 78262 10/17/2016 ([id number]) OFFICE/OUTPATIENT VISIT EST Diagnosis: Other seasonal allergic rhinitis[ICD10: J30.2] María Elena APPIAH DO [facility] CPT-4: 87403 10/10/2016 ([id number]) OFFICE/OUTPATIENT VISIT EST Diagnosis: Pain in left arm[ICD10: M79.602] Diagnosis: Contact with and (suspected) exposure to potentially hazardous body fluids[ICD10: Z77.21] Diagnosis: 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, 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] Diagnosis: Unspecified open wound, right foot, sequela[ICD10: S91.301S] María Elena APPIAH DO [facility] CPT-4: 79175 09/19/2016 ([id number]) OFFICE/OUTPATIENT VISIT EST Diagnosis: Chronic sinusitis, unspecified[ICD10: J32.9] Diagnosis: Allergic rhinitis due to pollen[ICD10: J30.1] María Elena APPIAH DO [facility] CPT-4: 79640 08/24/2016 ([id number]) OFFICE/OUTPATIENT VISIT EST Diagnosis: Acute bronchitis, unspecified[ICD10: J20.9] María Elena APPIAH DO [facility] CPT-4: 65823 08/16/2016 ([id number]) OFFICE/OUTPATIENT VISIT EST Diagnosis: Otitis media, unspecified, right ear[ICD10: H66.91] Diagnosis: Acute bronchitis, unspecified[ICD10: J20.9] María Elena APPIAH DO [facility] CPT-4: 18296 08/10/2016 ([id number]) OFFICE/OUTPATIENT VISIT EST Diagnosis: Acute recurrent sinusitis, unspecified[ICD10: J01.91] Diagnosis: Allergic rhinitis due to pollen[ICD10: J30.1] María Elena APPIAH DO [facility] [employer] [facility] CPT-4: 45843 08/02/2016 ([id number]) OFFICE/OUTPATIENT VISIT EST Diagnosis: Pain in unspecified joint[ICD10: M25.50] María Elena APPIAH DO [facility] CPT-4: 51153 07/27/2016 OFFICE/OUTPATIENT VISIT EST Diagnosis: 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] Diagnosis: Acute recurrent sinusitis, unspecified[ICD10: J01.91] Diagnosis: Other fatigue[ICD10: R53.83] Diagnosis: Primary insomnia[ICD10: F51.01] Diagnosis: Pain in unspecified joint[ICD10: M25.50] María Elena APPIAH [facility] CPT-4: 94356 07/20/2016 ([id number]) OFFICE/OUTPATIENT VISIT EST Diagnosis: Blister (nonthermal), left great toe, initial encounter[ICD10: S90.422A] Loan APPIAH DO [facility] CPT-4: 19608 ([id number]) OFFICE/OUTPATIENT VISIT EST Diagnosis: Acute recurrent sinusitis, unspecified[ICD10: J01.91] María Elena APPIAH DO [facility] CPT-4: 67218 05/25/2016 ([id number]) OFFICE/OUTPATIENT VISIT EST Diagnosis: Acute sinusitis, unspecified[ICD10: J01.90] María Elena APPIAH DO [facility] CPT-4: 60407 04/26/2016 ([id number]) OFFICE/OUTPATIENT VISIT EST Diagnosis: Flushing[ICD10: R23.2] Diagnosis: Primary insomnia[ICD10: F51.01] María Elena APPIAH DO [facility] CPT-4: 04987 03/02/2016 ([id number]) OFFICE/OUTPATIENT VISIT EST Diagnosis: Other seasonal allergic rhinitis[ICD10: J30.2] Loan APPIAH DO [facility] CPT-4: 15691 02/09/2016 ([id number]) OFFICE/OUTPATIENT VISIT EST Diagnosis: Primary insomnia[ICD10: F51.01] Diagnosis: Urinary tract infection, site not specified[ICD10: N39.0] María Elena [facility] CPT-4: 25531 01/24/2016 ([id number]) OFFICE/OUTPATIENT VISIT EST Diagnosis: Other specified disorders of Eustachian tube, bilateral[ICD10: H69.83] Diagnosis: Allergic rhinitis, unspecified[ICD10: J30.9] Loan [facility] CPT-4: 23228 12/23/2015 ([id number]) OFFICE/OUTPATIENT VISIT EST Diagnosis: Acute recurrent sinusitis, unspecified[ICD10: J01.91] Diagnosis: 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] Diagnosis: Allergic rhinitis, unspecified[ICD10: J30.9] María Elena Td ELLISLINE Fabiola [facility] CPT-4: 28574 12/08/2015 ([id number]) OFFICE/OUTPATIENT VISIT EST Diagnosis: Allergic rhinitis, unspecified[ICD10: J30.9] Diagnosis: Pain in unspecified joint[ICD10: M25.50] María Elena [facility] CPT-4: 28216 10/07/2015 ([id number]) OFFICE/OUTPATIENT VISIT EST Diagnosis: Essential (primary) hypertension[ICD10: I10] María Elena Td ELLISLINE Fabiola [facility] CPT-4: 98310 10/06/2015 OFFICE/OUTPATIENT VISIT EST Diagnosis: Localized enlarged lymph nodes[ICD10: R59.0] Diagnosis: Local infection of the skin and subcutaneous tissue, unspecified[ICD10: L08.9] Jnue Flores MARÍA ELENA [facility] CPT- 4: 22838 09/14/2015 ([id number]) OFFICE/OUTPATIENT VISIT EST Diagnosis: Essential (primary) hypertension[ICD10: I10] Diagnosis: Actinic keratosis[ICD10: L57.0] María Elena Td ELLISLINE Fabiola [facility] CPT-4: 74657 09/07/2015 ([id number]) OFFICE/OUTPATIENT VISIT EST Diagnosis: Essential (primary) hypertension[ICD10: I10] Diagnosis: Acute stress reaction[ICD10: F43.0] María Elena COLON Fabiola [facility] CPT-4: 11212 08/18/2015 ([id number]) OFFICE/OUTPATIENT VISIT EST Diagnosis: Essential (primary) hypertension[ICD10: I10] María Elena APPIAH DO [facility] CPT-4: 84085 07/07/2015 ([id number]) OFFICE/OUTPATIENT VISIT EST Diagnosis: Essential (primary) hypertension[ICD10: I10] María Elena APPIAH DO [facility] CPT-4: 95934 06/24/2015 ([id number]) OFFICE/OUTPATIENT VISIT EST Diagnosis: Essential (primary) hypertension[ICD10: I10] María Elena APPIAH DO [facility] CPT-4: 84807 06/21/2015 ([id number]) OFFICE/OUTPATIENT VISIT EST Diagnosis: Essential (primary) hypertension[ICD10: I10] Diagnosis: Mixed hyperlipidemia[ICD10: E78.2] Diagnosis: Acute stress reaction[ICD10: F43.0] Diagnosis: Primary insomnia[ICD10: F51.01] María Elena APPIAH DO [facility] CPT-4: 93154 06/16/2015 ([id number]) OFFICE/OUTPATIENT VISIT EST Diagnosis: INSOMNIA NOS[ICD9: 780.52] Diagnosis: HYPERTENSION[ICD9: 401.9] Diagnosis: Stress reaction[ICD9: 308.9] María Elena APPIAH DO [facility] CPT-4: 41709 06/02/2015 ([id number]) OFFICE/OUTPATIENT VISIT EST Diagnosis: HYPERTENSION[ICD9: 401.9] Diagnosis: Stress reaction[ICD9: 308.9] María Elena APPIAH DO [facility] CPT-4: 68916 05/20/2015 ([id number]) OFFICE/OUTPATIENT VISIT EST Diagnosis: Skin lesion[ICD9: 709.9] 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] María Elena APPIAH DO [facility] CPT-4: 41045 05/10/2015 ([id number]) OFFICE/OUTPATIENT VISIT EST Diagnosis: SINUSITIS, ACUTE[ICD9: 461.9] Diagnosis: ALLERGIC RHINITIS[ICD9: 477.9] Diagnosis: DERMATITIS NOS[ICD9: 692.9] María Elena REHMAN DO [facility] CPT-4: 63624 03/16/2015 OFFICE/OUTPATIENT VISIT EST Diagnosis: Otitis media[ICD9: 382.9] Diagnosis: SINUSITIS, ACUTE[ICD9: 461.9] June [facility] CPT-4: 77015 09/11/2014 ([id number]) OFFICE/OUTPATIENT VISIT EST Diagnosis: HYPERLIPIDEMIA NEC/NOS[ICD9: 272.4] María Elena APPIAH DO [facility] CPT-4: 36293 08/31/2014 ([id number]) OFFICE/OUTPATIENT VISIT EST Diagnosis: - I - HYPERTENSION[ICD9: 401.9] Diagnosis: HYPERLIPIDEMIA NEC/NOS[ICD9: 272.4] María Elena [facility] CPT-4: 58860 08/27/2014 ([id number]) OFFICE/OUTPATIENT VISIT EST Diagnosis: ABDOMINAL PAIN[ICD9: 789.00] Diagnosis: DYSPEPSIA[ICD9: 536.8] Diagnosis: Thoracic back pain[ICD9: 724.1] María Elena [facility] CPT-4: 46426 07/21/2014 ([id number]) OFFICE/OUTPATIENT VISIT EST Diagnosis: ALLERGIC RHINITIS[ICD9: 477.9] María Elena [facility] CPT-4: 78195 07/15/2014 ([id number]) OFFICE/OUTPATIENT VISIT EST Diagnosis: EDEMA[ICD9: 782.3] Diagnosis: Chronic insomnia[ICD9: 780.52] María Elena [facility] CPT-4: 57147 05/18/2014 ([id number]) OFFICE/OUTPATIENT VISIT EST Diagnosis: Thyromegaly[ICD9: 240.9] Diagnosis: - I - HYPERTENSION[ICD9: 401.9] Diagnosis: ROUTINE MEDICAL EXAM[ICD9: V70.0] Diagnosis: EDEMA[ICD9: 782.3] María Elena [facility] CPT-4: 44991 05/14/2014 OFFICE/OUTPATIENT VISIT EST Diagnosis: BRONCHITIS, ACUTE[ICD9: 466.0] Diagnosis: SINUSITIS, ACUTE[ICD9: 461.9] María Elena [facility] CPT-4: 39861 04/21/2014 OFFICE/OUTPATIENT VISIT EST Diagnosis: SINUSITIS, ACUTE[ICD9: 461.9] June [facility] CPT-4: 25036 03/04/2014 ([id number]) OFFICE/OUTPATIENT VISIT EST Diagnosis: VACCINE FOR TDAP[ICD10: Z23] María Elena [facility] CPT-4: 84558 02/27/2014 ([id number]) OFFICE/OUTPATIENT VISIT EST Diagnosis: Seborrheic keratoses, inflamed[ICD9: 702.11] Diagnosis: ACTINIC KERATOSIS[ICD9: 702.0] Diagnosis: INSOMNIA NOS[ICD9: 780.52] María Elena [facility] CPT-4: 14127 01/13/2014 OFFICE/OUTPATIENT VISIT EST Diagnosis: 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] Diagnosis: ALLERGIC RHINITIS[ICD9: 477.9] Diagnosis: Serous otitis media[ICD9: 381.4] María Elena [facility] CPT-4: 79061 12/24/2013 ([id number]) OFFICE/OUTPATIENT VISIT EST Diagnosis: SINUSITIS, ACUTE[ICD9: 461.9] Diagnosis: ALLERGIC RHINITIS[ICD9: 477.9] Diagnosis: 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] María Elena [facility] CPT-4: 61605 11/12/2013 ([id number]) OFFICE/OUTPATIENT VISIT EST Diagnosis: ALLERGIC RHINITIS[ICD9: 477.9] Diagnosis: SINUSITIS, ACUTE[ICD9: 461.9] María Elena [facility] CPT-4: 52569 10/21/2013 ([id number]) OFFICE/OUTPATIENT VISIT EST Diagnosis: ASYMPTOMATIC VARICOSE VEINS[ICD9: 454.9] Diagnosis: INSOMNIA NOS[ICD9: 780.52] María Elena [facility] CPT-4: 43279 09/22/2013 OFFICE/OUTPATIENT VISIT EST Diagnosis: SINUSITIS, ACUTE[ICD9: 461.9] June APPIAH DO [facility] CPT-4: 77984 08/27/2013 ([id number]) OFFICE/OUTPATIENT VISIT EST Diagnosis: CEPHALGIA[ICD9: 784.0] Diagnosis: CEPHALGIA, TENSION[ICD9: 307.81] 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] María Elena APPIAH [facility] CPT-4: 74248 08/04/2013 ([id number]) OFFICE/OUTPATIENT VISIT EST Diagnosis: Cervicalgia[ICD9: 723.1] Diagnosis: SPASM OF MUSCLE[ICD9: 728.85] Diagnosis: CEPHALGIA, TENSION[ICD9: 307.81] María Elena APPIAH [facility] CPT-4: 28179 07/23/2013 ([id number]) OFFICE/OUTPATIENT VISIT EST Diagnosis: 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] Diagnosis: ALLERGIC RHINITIS[ICD9: 477.9] María Elena APPIAH [facility] CPT-4: 04177 06/23/2013 ([id number]) OFFICE/OUTPATIENT VISIT EST Diagnosis: ALLERGIC RHINITIS[ICD9: 477.9] Diagnosis: ACUTE SEROUS OTITIS MEDIA[ICD9: 381.01] Diagnosis: 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] María Elena [facility]IAH [facility] CPT-4: 82617 05/26/2013 ([id number]) OFFICE/OUTPATIENT VISIT EST Diagnosis: HYPERTENSION[ICD9: 401.9] Diagnosis: EDEMA[ICD9: 782.3] Diagnosis: Serous otitis media[ICD9: 381.4] María Elena APPIAH [facility] CPT-4: 77352 04/16/2013 ([id number]) OFFICE/OUTPATIENT VISIT EST Diagnosis: SINUSITIS, ACUTE[ICD9: 461.9] Diagnosis: ALLERGIC RHINITIS[ICD9: 477.9] Diagnosis: EDEMA[ICD9: 782.3] Diagnosis: Thyromegaly[ICD9: 240.9] Diagnosis: MALAISE AND FATIGUE[ICD9: 780.79] María Elena Lopez Fabiola [facility]IAH [facility] CPT-4: 50796 03/05/2013 ([id number]) OFFICE/OUTPATIENT VISIT EST Diagnosis: PAIN, LOWER BACK[ICD9: 724.2] Diagnosis: SPASM OF MUSCLE[ICD9: 728.85] María Elena JUARES LucioJj [facility] CPT-4: 68513 12/23/2012 OFFICE/OUTPATIENT VISIT EST Diagnosis: Low back pain[ICD9: 724.2] Lashawn Hicks [facility] CPT-[facility]: 75912 12/16/2012 ([id number]) OFFICE/OUTPATIENT VISIT EST Diagnosis: PAIN, LOWER BACK[ICD9: 724.2] Diagnosis: SCIATICA[ICD9: 724.3] Diagnosis: Lumbar herniated disc[ICD9: 722.10] María Elena COLON LucioJj [facility] CPT-4: 46156 12/09/2012 ([id number]) OFFICE/OUTPATIENT VISIT EST Diagnosis: PAIN, LOWER BACK[ICD9: 724.2] Diagnosis: SCIATICA[ICD9: 724.3] Diagnosis: LUMBAR DISC DISPLACEMENT[ICD9: 722.10] María Elena MARIN LucioJj [facility] CPT-4: 14111 12/04/2012 OFFICE/OUTPATIENT VISIT EST Diagnosis: Pneumonia[ICD9: 486] Mary JUARES LucioJj [facility] CPT-4: 80647 11/22/2012 ([id number]) OFFICE/OUTPATIENT VISIT EST Diagnosis: PNEUMONIA, ORGANISM[ICD9: 486] Diagnosis: Exacerbation of RAD (reactive airway disease)[ICD9: 493.92] María Elena JUARES LucioJj [facility] CPT-4: 35740 11/21/2012 OFFICE/OUTPATIENT VISIT EST Diagnosis: HYPERTENSION[ICD9: 401.9] Diagnosis: Cephalgia[ICD9: 784.0] Lashawn Hicks TD GARIBAY [facility] CPT-4: 79044 10/29/2012 ([id number]) OFFICE/OUTPATIENT VISIT EST Diagnosis: MALAISE AND FATIGUE[ICD9: 780.79] Diagnosis: ARTHRALGIA-MULTIPLE SITES[ICD9: 719.49] María Elena APPIAH DO [facility] CPT-4: 86674 10/14/2012 ([id number]) OFFICE/OUTPATIENT VISIT EST Diagnosis: URINARY FREQUENCY[ICD9: 788.41] María Elena Seamusmindimaryjane ValdesJj TD GARIBAY [facility] CPT-4: 18476 09/27/2012 ([id number]) OFFICE/OUTPATIENT VISIT EST Diagnosis: MALAISE AND FATIGUE[ICD9: 780.79] Diagnosis: ARTHRALGIA-MULTIPLE SITES[ICD9: 719.49] María Elena Seamusmindimaryjane ValdesJj TD GARIBAY [facility] CPT-4: 21766 09/25/2012 ([id number]) OFFICE/OUTPATIENT VISIT EST Diagnosis: SINUSITIS, ACUTE[ICD9: 461.9] Diagnosis: EUSTACHIAN TUBE DYSFUNCTION[ICD9: 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] María Elena ValdesJj TD GARIBAY [facility] CPT-4: 88716 08/29/2012 OFFICE/OUTPATIENT VISIT EST Diagnosis: ACTINIC KERATOSIS[ICD9: 702.0] Diagnosis: Inflamed seborrheic keratosis[ICD9: 702.11] Diagnosis: Skin cancer of face[ICD9: 173.31] Diagnosis: HYPERTENSION[ICD9: 401.9] María Elenamarcella Appiah MARÍA ELENA LucioJj [facility] CPT-4: 66965 08/12/2012 ([id number]) OFFICE/OUTPATIENT VISIT EST Diagnosis: ARTHRALGIA-MULTIPLE SITES[ICD9: 719.49] Diagnosis: GOUT[ICD9: 274.9] Diagnosis: HYPERTENSION[ICD9: 401.9] Diagnosis: Tachycardia[ICD9: 785.0] María Elenamarcella JUARES LucioJj FRITZTaiwo [facility] CPT-4: 41886 05/06/2012 ([id number]) OFFICE/OUTPATIENT VISIT EST Diagnosis: INSOMNIA NOS[ICD9: 780.52] María Elena Hicks [facility] CPT-4: 81482 04/03/2012 ([id number]) OFFICE/OUTPATIENT VISIT EST Diagnosis: INSOMNIA NOS[ICD9: 780.52] Diagnosis: HYPERTENSION[ICD9: 401.9] Diagnosis: MIGRAINE NOS/NOT INTRCBL[ICD9: 346.90] María Elena MARIN LucioJj [facility] CPT-4: 93747 03/19/2012 ([id number]) OFFICE/OUTPATIENT VISIT EST Diagnosis: CELLULITIS[ICD9: 682.9] Diagnosis: Ankle pain[ICD9: 719.47] Diagnosis: HYPERTENSION[ICD9: 401.9] María Elena Hicks [facility] CPT-4: 43950 02/20/2012 ([id number]) OFFICE/OUTPATIENT VISIT EST Diagnosis: MIGRAINE NOS/NOT INTRCBL[ICD9: 346.90] Diagnosis: Vomiting[ICD9: 787.03] María Elena Hicks [facility] CPT-4: 66919 01/30/2012 ([id number]) OFFICE/OUTPATIENT VISIT EST Diagnosis: EDEMA[ICD9: 782.3] Diagnosis: HYPERTENSION[ICD9: 401.9] Diagnosis: ALLERGIC RHINITIS[ICD9: 477.9] Diagnosis: ARTHRALGIA-MULTIPLE SITES[ICD9: 719.49] María Elena Hicks [facility] CPT-4: 83481 01/24/2012 ([id number]) OFFICE/OUTPATIENT VISIT EST Diagnosis: SPASM OF MUSCLE[ICD9: 728.85] Diagnosis: Thoracic back pain[ICD9: 724.1] Diagnosis: Cervical pain[ICD9: 723.1] María Elena Hicks KRISTYN [facility] CPT-4: 19174 01/10/2012 OFFICE/OUTPATIENT VISIT EST Diagnosis: PAIN, LOWER BACK[ICD9: 724.2] Diagnosis: LUMBAR DISC DISPLACEMENT[ICD9: 722.10] María Elena MARIN LucioJj [facility] CPT-4: 43336 12/11/2011 OFFICE/OUTPATIENT VISIT EST Diagnosis: MIGRAINE NOS/NOT INTRCBL[ICD9: 346.90] Diagnosis: SINUSITIS, ACUTE[ICD9: 461.9] María Elena APPIAH DO [facility] CPT-4: 88500 11/09/2011 OFFICE/OUTPATIENT VISIT EST Diagnosis: MIGRAINE NOS/NOT INTRCBL[ICD9: 346.90] Diagnosis: LYMPHADENOPATHY[ICD9: 785.6] María Elena APPIAH DO [facility] CPT-4: 47712 09/13/2011 OFFICE/OUTPATIENT VISIT EST Diagnosis: MALAISE AND FATIGUE[ICD9: 780.79] Diagnosis: ARTHRALGIA-MULTIPLE SITES[ICD9: 719.49] María Elena APPIAH DO [facility] CPT-4: 57447 08/31/2011 OFFICE/OUTPATIENT VISIT EST Diagnosis: SINUSITIS, ACUTE[ICD9: 461.9] María Elena APPIAH DO [facility] CPT-4: 72442 07/20/2011 OFFICE/OUTPATIENT VISIT EST Diagnosis: HYPERTENSION[ICD9: 401.9] Diagnosis: PAIN, LOWER BACK[ICD9: 724.2] Diagnosis: SPASM OF MUSCLE[ICD9: 728.85] María Elena APPIAH DO [facility] CPT-4: 18092 07/06/2011 OFFICE/OUTPATIENT VISIT EST Diagnosis: MIGRAINE NOS/NOT INTRCBL[ICD9: 346.90] Diagnosis: HYPERTENSION[ICD9: 401.9] María Elena [facility] CPT-4: 08196 05/22/2011 OFFICE/OUTPATIENT VISIT EST Diagnosis: SINUSITIS, ACUTE[ICD9: 461.9] Diagnosis: MIGRAINE NOS/NOT INTRCBL[ICD9: 346.90] Diagnosis: Dehydration[ICD9: 276.51] Diagnosis: Vomiting[ICD9: 787.03] María Elena Seamusmindimaryjane ELLISMARÍA ELENA LucioJj CIRO [facility] CPT-4: 33842 05/09/2011 ([id number]) OFFICE/OUTPATIENT VISIT EST María Elena Td APPIAH DO [facility] CPT-4: 82460 02/14/2011 ([id number]) OFFICE/OUTPATIENT VISIT EST María Elena Seamusmindimaryjane MARLIN CulverJARED [facility] CPT-4: 51882 02/03/2011 ([id number]) OFFICE/OUTPATIENT VISIT EST María Elena [facility] CPT-4: 19776 01/31/2011 ([id number]) OFFICE/OUTPATIENT VISIT EST María Elena [facility] CPT-4: 36856 01/25/2011 ([id number]) OFFICE/OUTPATIENT VISIT EST María Elena [facility] CPT-4: 20790 01/18/2011 ([id number]) OFFICE/OUTPATIENT VISIT EST María Elena [facility]AC [facility] CPT-4: 44473 11/29/2010 ([id number]) OFFICE/OUTPATIENT VISIT, EST María Elena MONTERO [facility] CPT-4: 34535 10/10/2010 ([id number]) OFFICE/OUTPATIENT VISIT, EST María Elena [facility]O [facility] CPT-4: 20030 06/07/2010 ([id number]) OFFICE/OUTPATIENT VISIT, EST María Elena [facility]O [facility] CPT-4: 80525 04/27/2010 ([id number]) OFFICE/OUTPATIENT VISIT, EST María Elena [facility]O [facility] CPT-4: 83118 04/05/2010 ([id number]) OFFICE/OUTPATIENT VISIT, EST María Elena MONTERO [facility] CPT-4: 76991 03/09/2010 ([id number]) OFFICE/OUTPATIENT VISIT, EST María Elena [facility] CPT-4: 88900 03/03/2010 ([id number]) OFFICE/OUTPATIENT VISIT, EST María Elena [facility] CPT-4: 67016 01/17/2010 ([id number]) PREV VISIT, EST, AGE 40-64 María Elena [facility] CPT-4: 20342 12/27/2009 Plan of Care Planned Activity Notes Codes Status Date Appointment: María Elena Appiah WPtel: [address] [place], [place] [phone] [place] Won't have the new insurance till [...] W06.XXXS 05/28/2019 Appointment: María Elena Appiah WPtel: [address] [place], [place] [phone] [place] FOLLOW UP 05/28/2019 Appointment: María Elena Appiah WPtel: [address] [place], [place] [phone] [place] BP CHECK 05/19/2019 Visit Diagnosis Plan: [...] Z79.890 01/22/2019 Appointment: María Elena Appiah WPtel: [address] [place], [place] [phone] [place] FOLLOW UP 01/22/2019 Patient Education: estradiol- Optimize[employer] Coupon [id number] [email or web address] MEDCARE/resources/getResource/[email or web address] Completed 01/22/2019 Appointment: María Elena Appiah WPtel: [address] [place] [address] [place] CANCELED 01/20/2019 Appointment: María Elena Appiah WPtel: [address] [place] [address] [place] LM NO SHOW 01/06/2019 Appointment: María Elena Appiah WPtel: [address] [place] [address] [place] CANCELED 10/17/2018 Appointment: María Elena Appiah WPtel: [address] [place] [address] [place] BP CHECK 10/09/2018 Visit Diagnosis Plan: [...] I10 09/30/2018 Appointment: María Elena Appiah WPtel: [address] [place] [address] [place] FOLLOW UP 09/30/2018 Visit Diagnosis Plan: [...] F51.01 08/27/2018 Appointment: María Elena Appiah WPtel: [address] [place] [address] [place] ACUTE ILLNESS 08/27/2018 Appointment: María Elena Appiah WPtel: [address] [place], [place] [phone] [place] Patient stated she went out to [...] Tyle... 08/09/2018 Appointment: María Elena Appiah WPtel: [address] [place] [address] ACUTE ILLNESS 08/09/2018 Appointment: María Elena Appiah WPtel: [address] [place], [place] [phone] NO SHOW 08/08/2018 Visit Diagnosis Plan: Anxiety [...] 07/22/2018 Appointment: María Elena Appiah WPtel: [address] [place], [place] [phone] ACUTE ILLNESS 07/22/2018 Appointment: María Elena Appiahl: [address] [id number] [place] INJECTION 06/19/2018 Patient Education: Patient Medication [...] ICD-10 : L03.031 06/17/2018 Appointment: Kathleen Zuniga [address] [place] [address] ACUTE ILLNESS 06/17/2018 Patient Education: Patient Medication [...] ICD-10 : B02.9 05/16/2018 Appointment: Kathleen Zuniga [address] [place], [place] [phone] ACUTE ILLNESS 05/16/2018 Patient Education: Patient Medication [...] ICD-10 : L03.115 03/20/2018 Appointment: Kathleen Zuniga [address] [place], [place] [address] FOLLOW UP 03/20/2018 Patient Education: Patient Medication [...] : L03.115 03/18/2018 Appointment: Kathleen Zuniga [address] [place] [address] FOLLOW UP 03/18/2018 Patient Education: Patient Medication [...] : L03.115 03/15/2018 Appointment: Kathleen Zuniga [address] [place], [place] [address] ACUTE ILLNESS 03/15/2018 Patient Education: Patient Medication [...] : J01.90 02/11/2018 Appointment: Kathleen Zuniga [address] [place], [place] [address] ACUTE ILLNESS 02/11/2018 Patient Education: Patient Medication Summary Completed 02/11/2018 Appointment: María Elena Appiah WPtel: [phone] [facility] [place] INJECTION 02/01/2018 Patient Education: Patient [...] : M51.16 01/30/2018 Appointment: Kathleen Zuniga [address] [place], [place] [phone] ACUTE ILLNESS 01/30/2018 Patient [...] 12/18/2017 Appointment: María Elena Appiah WPtel: [phone] Annual Well Visit 12/18/2017 Patient Education: Patient Medication Summary Completed 12/18/2017 Care Plan: Referral Order SNOMED-CT : [id number] Pending 12/18/2017 Appointment: María Elena Appiah WPtel: [address] [place] [address] [place] INJECTION 12/10/2017 Patient Education: Patient Medication [...] ICD-10 : L03.031 12/07/2017 Appointment: Kathleen Zuniga [address] [place] [address] ACUTE ILLNESS 12/07/2017 Patient Education: Patient Medication [...] 461.0 ICD-10 : J01.00 10/08/2017 Appointment: Kathleen Zuinga [address] ACUTE ILLNESS 10/08/2017 Patient Education: Patient Medication Summary Completed 10/08/2017 Appointment: María Elena Appiah WPtel: [phone] [id number] [place] INJECTION 09/21/2017 Patient Education: Patient Medication [...] ICD-10 : R06.83 09/20/2017 Appointment: Kathleen Zuniga [address] [place], [place] [id number] ACUTE ILLNESS 09/20/2017 Patient Education: Patient Medication [...] ICD-10 : L60.0 08/29/2017 Appointment: Kathleen Zuniga [address] [place] [address] OFFICE SURGERY 08/29/2017 Patient Education: Patient Medication Summary Completed 08/29/2017 Visit Diagnosis Plan: Actinic keratosis Discussion: Cr yotherapy as above ICD-9 : 702.0 ICD-10 : L57.0 08/01/2017 Appointment: María Elena Appiah WPtel: [address] [place] [address] OFFICE SURGERY 08/01/2017 Patient Education: Patient Medication Summary Completed 08/01/2017 Appointment: María Elena Appiah WPtel: [address] [place] [address] PATIENT THOUGHT APPOINTMENT WAS TOMORROW 07/26/17 CALLED 15 MINUTES BEFORE APPT TO SAY SHE DIDN'T HAVE ANYONE TO COVER HER BUSINESS AND WOULD NOT MAKE IT NO SHOW 07/25/2017 Visit Diagnosis Plan: Cellulitis of left toe Discussio n: Clindamycin and notify if worsening or persistis ICD-9 : 681.10 ICD-10 : L03.032 07/19/2017 Appointment: María Elena Appiah WPtel: [address] [place], [place] [phone] MEDICATION REVIEW 07/19/2017 Patient Education: Patient Medication Summary Completed 07/19/2017 Appointment: María Elena Appiah WPtel: [address] [place] [address] [place] CANCELED 07/04/2017 Visit Diagnosis Plan: Generalized hyperhidrosis Discus ian: CBC, CMP, TSH, free T4 ordered to assess. will review labs. ICD-9 : 780.8 ICD-10 : R61 06/27/2017 Visit Diagnosis Plan: Chronic sinusitis, unspecified D iscussion: Referral sent to dr. albarado in [place] per patient request. patient has been treated multiple times for sinus infections with no recovery. patient was seen by dr sanchez in the past with no interventions. patient has deviated septum which may be affecting her sinuses. 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, including hip Discussion: Shave removal of above lesio n--sent to pathology ICD-9 : 216.7 ICD-10 : D23.72 01/24/2017 Appointment: María Elena Appiah WPtel: [address] [place], [place] [phone] 01/23 confirmed ~sl OFFICE SURGERY 01/24/2017 Patient Education: Patient Medication Summary Completed 01/24/2017 Appointment: Loan Sánchez [address] [place], [place] [phone] 01/09 rescheduled~sl RESCHEDULED 01/15/2017 Visit Diagnosis Plan: Localized edema Discussion: Reich fernnado metolazone to lasix with potassium prn ICD-9 [...] L81.4 12/13/2016 Appointment: María Elena Appiah WPtel: [address] [place], [place] [phone] 12/12 confirmed ~sl MEDICATION REVIEW 12/13/2016 Patient Education: Patient Medication Summary Completed 12/13/2016 Appointment: María Elena Appiah WPtel: [address] [place], [place] [id number] [place] rescheduled for 12/13/16 at 11am RESCHEDULED 0 12/06/2016 Appointment: María Elena Appaih WPtel: [address] [place], [place] [id number] [place] CANCELED 11/23/2016 Patient Education: Patient Medication [...] 11/01/2016 Appointment: María Elena Appiah WPtel: [address] [place], [place] [id number] [place] 10/31 lm `sl 11/01 lm`sl MEDICATION REVIEW 017 Patient Education: Patient Medication Summary Completed 11/01/2016 Referral: Canelo Overton WPtel: [phone] [id number] Referral Initiated 10/30/2016 Visit Diagnosis Plan: Encounter [...] 10/17/2016 Appointment: María Elena Appiah WPtel: [address] [place], [place] [phone] 10/16 confirmed ~sl PAP 10/17/2016 Patient Education: Patient Medication Summary Completed 10/17/2016 Care Plan: MAMMOGRAM SCREENING LOINC : 2 6347-5 Pending 10/17/2016 Visit Diagnosis Plan: Other seasonal allergic rhinitis Discussion: Decadron/Garamycin Nasal [place] Mix Too soon for steroid Retry zyrtec 10mg daily ICD-9 : 477.9 ICD-10 : J30.2 10/10/2016 Appointment: María Elena Appiah WPtel: [address] [place], [place] [id number] [place] FOLLOW UP 10/10/2016 Patient Education: Patient Medication Summary Completed 10/10/2016 Appointment: María Elena Appiah WPtel: [address] [place], [place] [phone] 10/02 reschedule `sl RESCHEDULED 10/02/2016 Visit Plan: See surgery for removal of n ew left arm lesion and right foot lesion Lyrica to use next month for left arm paresthesias Continue current meds Discussed sunscreen/sunblock combo 09/19/2016 Appointment: María Elena Appiahl: [address] [place] [address] 09/18 confirmed ~sl FOLLOW UP 09/19/2016 Patient Education: Patient Medication Summary Completed 09/19/2016 Patient Education: Patient Medication Summary Completed 09/18/2016 Care Plan: MAMMOGRAM BOTH BREASTS LOINC : 89000-6 Pending 09/18/2016 Visit Plan: Discussed that needs [...] sinuses 08/24/2016 Appointment: María Elena Appiah WPtel: [address] [place] [address] ACUTE ILLNESS 08/24/2016 Patient Education: Patient Medication Summary Completed 08/24/2016 Patient Education: Patient Medication Summary Completed 08/23/2016 Care Plan: MAMMOGRAM SCREENING LOINC : 2 6347-5 Pending 08/23/2016 Visit Plan: Finish doxycycline Add Breo 100/25 1 p BID for 2 weeks If not improving within next 2 days will get CXR 08/16/2016 Appointment: María Elena Appiah WPtel: [address] [place] [address] ACUTE ILLNESS 08/16/2016 Patient Education: Patient Medication Summary Completed 08/16/2016 Visit Plan: Supportive care. Rest, Fluid s, Tylenol/Motrin prn fever or bodyaches. Notify if worsening symptoms. Doxycyline and Prednisone 08/10/2016 Appointment: María Elena Appiah WPtel: [address] [place] [address] 08/09 lm`sl....confirmed-sp FOLLOW UP 09/2015 Patient Education: Patient Medication Summary Completed 08/10/2016 Visit Plan: Saline nasal flushes prn. Ty lenol/Motrin prn headache. Notify if persists/symptoms worsening. Dexamethasone 8mg IM today May use coricedan and mucinex 08/02/2016 Appointment: María Elena Appiah WPtel: [address] [place] [address] ACUTE ILLNESS 08/02/2016 Patient Education: Patient Medication Summary Completed 08/02/2016 Visit Plan: Cryotherapy as above and lef t forearm lesion removal as above with 5-0 punch biopsy and sent to path Return in 10 days for suture removal 08/01/2016 Appointment: María Elena Appiah WPtel: [address] [place], [place] [phone] 07/31 confirmed`~sl OFFICE SURGERY 08/01/2016 Patient Education: Patient Medication Summary Completed 08/01/2016 Visit Plan: Stop clindamycin Check CBC, CMP, ESR now/STAT 07/27/2016 Appointment: María Elena Appiah WPtel: [address] [place] [address] ACUTE ILLNESS 07/27/2016 Patient Education: Patient Medication Summary Completed 07/27/2016 Visit Plan: Update lab and check ABIs to start with Will likely need cardiology evaluation to rule out PVD Clindamycin for 10 days Daily yogurt or probiotic Will return for removal of left arm lesions 07/20/2016 Appointment: María Elena Appiah WPtel: [address] [place] [address] ACUTE ILLNESS 07/20/2016 Patient Education: Patient Medication Summary Completed 07/20/2016 Patient Education: Patient Medication Summary Completed 07/20/2016 Care Plan: MAMMOGRAM BOTH BREASTS LOINC : 60410-4 Pending 07/20/2016 Care Plan: US EXAM CHEST LOINC : 39809-5 Pending 07/20/2016 Visit Plan: Wound culture collected from left great toe Appearance is somewhat staph like Rx as above Wound cleanser and skin care reviewed May need to add oral antibiotic if sores do not heal or continue to reoccur 07/06/2016 Appointment: Loan Sánchez [address] [place] [address] ACUTE ILLNESS 07/06/2016 Patient Education: Patient Medication Summary Completed 07/06/2016 Appointment: María Elena Appiah WPtel: [address] [place] [address] [place] INJECTION 05/25/2016 Patient Education: Patient Medication Summary Completed 05/25/2016 Visit Plan: Saline nasal flushes prn. Ty lenol/Motrin prn headache. Notify if persists/symptoms worsening. Dexamethasone and Rocephin given 04/26/2016 Appointment: María Elena Appiah WPtel: [address] [place] [address] ACUTE ILLNESS 04/26/2016 Patient Education: Patient Medication Summary Completed 04/26/2016 Visit Plan: Check CBC, CMP, TSH, FreeT4, HbA1C, estradiol, lipids in AM 03/02/2016 Appointment: María Elena Appiah WPtel: [address] [place] [address] 03/01 lm~sl ACUTE ILLNESS 03/02/2016 Patient Education: Patient Medication Summary Completed 03/02/2016 Visit Plan: Exam is nearly normal Needs to be taking daily antihistamine Would prefer to use oral steroids instead of shot but patient insist that oral steroids cause horrible headaches for her Will given kenalog IM instead 02/09/2016 Appointment: Loan Sánchez [address] [place] [address] ACUTE ILLNESS 02/09/2016 Patient Education: Patient Medication Summary Completed 02/09/2016 Visit Plan: Culture urine Macrobid DC xa nax Trial of Ativan 1mg q HS 01/24/2016 Appointment: María Elena Appiah WPtel: [address] [place] [address] ACUTE ILLNESS 01/24/2016 Patient Education: Patient Medication Summary Completed 01/24/2016 Visit Plan: No steroid or rocephin injec tion warranted Can have oral prednisone Continue current home regimen Needs to follow up with Dr Sanchez if problems persist 12/23/2015 Appointment: Loan Sánchez [address] [place] [address] ACUTE ILLNESS 12/23/2015 Patient Education: Patient Medication Summary Completed 12/23/2015 Visit Plan: Saline nasal flushes prn. Ty lenol/Motrin prn headache. Notify if persists/symptoms worsening. Kenalog 40mg IM today 12/08/2015 Appointment: María Elena Appiah WPtel: [address] [place] [address] 12/06 confirmed~sl ACUTE ILLNESS 12/08/2015 Patient Education: Patient Medication Summary Completed 12/08/2015 Appointment: María Elena Appiah WPtel: [address] [place] [address] ACUTE ILLNESS 11/18/2015 Patient Education: Patient Medication Summary Completed 10/11/2015 Appointment: María Elena Appiah WPtel: [address] [place] [address] [place] INJECTION 10/07/2015 Patient Education: Patient Medication Summary Completed 10/07/2015 Visit Plan: Check renal arterial doppler s and ECHO Change amlodopine to lotrel 5/20mg q HS Will need stress test as well Check CMP, uric acid, ESR 10/06/2015 Appointment: María Elena Appiah WPtel: [address] [place] [address] ACUTE ILLNESS 10/06/2015 Patient Education: Patient Medication Summary Completed 10/06/2015 Patient Education: [facility] [place] - Saving AutoInj - Amlodipine Besylate - 18-64 - Dynamic Portal ID Completed 10/06/2015 Appointment: María Elena Appiah WPtel: [address] [place] [address] FOLLOW UP 09/22/2015 Visit Plan: Cephalexin 500 mg PO bid Mery ly topical Mupirocin to lesions on left lateral neck and face Follow-up in one week. Sooner if symptoms worsen 09/14/2015 Appointment: June Flores WPtel: [address] [place] [address] ACUTE ILLNESS 09/14/2015 Patient Education: Patient Medication Summary Completed 09/14/2015 Visit Plan: Change bystolic to bedtime d osing and amlodopine to morning dosing Cryotherapy as above to AKs 09/07/2015 Appointment: María Elena Appiah WPtel: [address] [place] [address] 09/06 appointment made and confirmed ~sl FOLLOW UP 09/07/2015 Patient Education: Patient Medication Summary Completed 09/07/2015 Visit Plan: Increase bystolic back to 20 mg daily but will split and take 10mg in AM and 10mg in PM Stress Reducers 08/18/2015 Appointment: María Elena Appiah WPtel: [address] [place], [place] [id number] 08/17/15 appt confirmed cn ACUTE ILLNESS 08/18 Patient Education: Patient Medication Summary Completed 08/18/2015 Appointment: María Elena Appiah WPtel: [address] [place] [address] BP CHECK 07/07/2015 Patient Education: Patient Medication Summary Completed 07/07/2015 Appointment: María Elena Appiah WPtel: [address] [place] [address] BP CHECK 06/24/2015 Patient Education: Patient Medication Summary Completed 06/24/2015 Appointment: María Elena Appiah WPtel: [address] [place] [address] BP CHECK 06/21/2015 Patient Education: Patient Medication Summary Completed 06/21/2015 Visit Plan: Lab discussed Continue curre nt meds and lifestyle modification Recheck lab in 6mos 06/16/2015 Appointment: María Elena Appiah WPtel: [address] [place] [address] 06/15 confirmed FOLLOW UP 06/16/2015 Patient Education: Patient Medication Summary Completed 06/16/2015 Patient Education: Patient Medication Summary Completed 06/15/2015 Visit Plan: Increase cymbalta to 60mg q HS Keep clonidine at current dose Recheck 2weeks Change xanax to klonopin 06/02/2015 Appointment: María Elena Appiah WPtel: [address] [place], [place] [phone] 06/02 lm FOLLOW UP 06/02/2015 Patient Education: Patient Medication Summary Completed 06/02/2015 Appointment: María Elena Appiah WPtel: [address] [place] [address] ACUTE ILLNESS 05/24/2015 Visit Plan: Increase clonidine to 0.2mg q HS Add cymbalta 30mg q HS Recheck 2weeks Stress Reducers Check fasting lab Discussed sleep study 05/20/2015 Appointment: María Elena Appiah WPtel: [address] [place] [address] ACUTE ILLNESS 05/20/2015 Patient Education: Patient Medication Summary Completed 05/20/2015 Patient Education: [facility] [place] - Saving [employer]j - Cymbalta - 18-64 - Dynamic Portal ID Completed 05/20/2015 Appointment: María Elena Appiah WPtel: [address] [place] [address] BP CHECK 05/19/2015 Patient Education: Patient Medication Summary Completed 05/19/2015 Visit Plan: Topical Bactroban alternatin g with topical betamethasone Recheck 2weeks 05/10/2015 Appointment: María Elena Appiah WPtel: [address] [place], [place] [id number] 05/07 cn...05/07 appt confirmed OFFICE SURGER Y 05/10/2015 Patient Education: Patient Medication Summary Completed 05/10/2015 [facility]: [facility] [address] Referral Initiated 05/04/2015 Visit Plan: Saline nasal flushes prn. Ty lenol/Motrin prn headache. Notify if persists/symptoms worsening. Depomedrol 40mg IM today 03/16/2015 Appointment: María Elena Appiah WPtel: [address] [place] [address] ACUTE ILLNESS 03/16/2015 Patient Education: Patient Medication Summary Completed 03/16/2015 Appointment: María Elena Appiah WPtel: [address] [place] [address] ER Follow UP 03/09/2015 Visit Plan: Cryotherapy to lesions as ab ove 10/27/2014 Appointment: María Elena Appiah WPtel: [address] [place] [address] OFFICE SURGERY 10/27/2014 Patient Education: Patient Medication Summary Completed 10/27/2014 Appointment: June Flores WPtel: [address] [place] [address] ACUTE ILLNESS 09/11/2014 Patient Education: Patient Medication Summary Completed 09/11/2014 Visit Plan: Lab discussed Lipitor 10mg d aily Coenzyme Q-10 400mg daily Vitamin D3 5000u daily Recheck lipids with LFTs in 3mos then fwup 08/31/2014 Appointment: María Elena Appiah WPtel: [address] [place] [address] 08/28 voicemail FOLLOW UP 08/31/2014 Patient Education: Patient Medication Summary Completed 08/31/2014 Appointment: María Elena Appiah WPtel: [address] [place] [address] US LAB 08/27/2014 Appointment: María Elena Appiah WPtel: [address] [place], [place] [phone] US LAB 08/27/2014 Patient Education: Patient Medication Summary Completed 08/27/2014 Appointment: María Elena Appiah WPtel: [address] [place] [address] ACUTE ILLNESS 07/23/2014 Appointment: María Elena Appiah WPtel: [address] [place] [address] ACUTE ILLNESS 07/21/2014 Patient Education: Patient Medication Summary Completed 07/21/2014 Visit Plan: Kenalog 40mg IM today Contin ue narendra and singulair Add Flonase 07/15/2014 Appointment: María Elena Appiah WPtel: [address] [place], [place] [phone] ACUTE ILLNESS 07/15/2014 Appointment: María Elena Appiah WPtel: [address] [place], [place] [phone] ACUTE ILLNESS 07/15/2014 Patient Education: Patient Medication Summary Completed 07/15/2014 Visit Plan: Will do metolazone 2.5mg prn with 6 potassium and see if causes as severe cramping Trial of of seroquel XR 50mg q PM with evening meal and let us know how works 05/18/2014 Appointment: María Elena Appiah WPtel: [address] [place], [place] [phone] 05/15 left message FOLLOW UP 05/18/2014 Patient Education: Patient Medication Summary Completed 05/18/2014 Appointment: María Elena Appiah WPtel: [address] [place], [place] [phone] US LAB 05/14/2014 Patient Education: Patient Medication Summary Completed 05/14/2014 Appointment: María Elena Appiah WPtel: [address] [place], [place] [phone] [place] INJECTION 04/22/2014 Visit Plan: Tisha and Miranda today a nd finish abx given from urgent care 04/21/2014 Appointment: María Elena Appiah WPtel: [address] [place], [place] [phone] [place] INJECTION 04/21/2014 Patient Education: Patient Medication Summary Completed 04/21/2014 Appointment: June Flores WPtel: [address] [place], [place] [phone] ACUTE ILLNESS 03/04/2014 Patient Education: Patient Medication Summary Completed 03/04/2014 Appointment: María Elena Appiah WPtel: [address] [place], [place] [phone] [place] INJECTION 02/27/2014 Patient Education: Patient Medication Summary Completed 02/27/2014 Visit Plan: Cryotherapy as above to all lesions Patient wants to try no meds for insomnia for a while and see how goes 01/13/2014 Appointment: María Elena Appiah WPtel: [address] [place] [address] OFFICE SURGERY 01/13/2014 Patient Education: Patient Medication Summary Completed 01/13/2014 Visit Plan: Stop Melatonin Stop Soma Tri al of trazadone 75mg q HS See ENT for possible tubes as has had chronic ETD and serous otitis media with numerous steroids 12/24/2013 Appointment: María Elena Appiah WPtel: [address] [place] [address] ACUTE ILLNESS 12/24/2013 Patient Education: Patient Medication Summary Completed 12/24/2013 Visit Plan: Saline nasal flushes prn. Ty lenol/Motrin prn headache. Notify if persists/symptoms worsening. 11/12/2013 Appointment: María Elena Appiah WPtel: [address] [place] [address] ACUTE ILLNESS 11/12/2013 Patient Education: Patient Medication Summary Completed 11/12/2013 Appointment: María Elena Appiah WPtel: [address] [place] [address] ACUTE ILLNESS 10/21/2013 Patient Education: Patient Medication Summary Completed 10/21/2013 Visit Plan: Sleep hygiene and sleep rout ine Melatonin 10mg q HS Support stockings and observe 09/22/2013 Appointment: María Elena Appiah WPtel: [address] [place] [address] ACUTE ILLNESS 09/22/2013 Patient Education: Patient Medication Summary Completed 09/22/2013 Appointment: June Flores WPtel: [address] [place] [address] ACUTE ILLNESS 08/27/2013 Patient Education: Patient Medication Summary Completed 08/27/2013 Visit Plan: Proceed with CT scan of head /neck Proceed with occipital nerve injections Butrans 20mcg patch weekly until can get into see Dr. Mcdonough for injections 08/04/2013 Appointment: María Elena Appiahtel: [address] [place] [address] FOLLOW UP 08/04/2013 Patient Education: Patient Medication Summary Completed 08/04/2013 Visit Plan: OMT done Daily neck stretche s, moist heat Increase Celebrex to 200mg BID Add flexeril 07/23/2013 Appointment: María Elena Appiah WPtel: [address] [place] [address] 07/22 voicemail FOLLOW UP 07/23/2013 Patient Education: Patient Medication Summary Completed 07/23/2013 Appointment: María Elena Appiah WPtel: [address] [place] [address] ACUTE ILLNESS 06/23/2013 Patient Education: Patient Medication Summary Completed 06/23/2013 Appointment: María Elena Appiah WPtel: [address] [place] [address] ACUTE ILLNESS 05/26/2013 Patient Education: Patient Medication Summary Completed 05/26/2013 Visit Plan: Decrease clonidine to 0.1mg TID If BP remains stable consider decreasing amlodopine Prednisone for 5 days BP check in 1mo 04/16/2013 Appointment: María Elena Appiahtel: [address] [place] [address] 04/14 pt called and confirmed appt FOLLOW UP 04/16/2013 Patient Education: Patient Medication Summary Completed 04/16/2013 Appointment: María Elena Appiahtel: [address] [place] [address] ACUTE ILLNESS 03/05/2013 Patient Education: Patient Medication Summary Completed 03/05/2013 Visit Plan: Pt has MARIA ELENA on with Dr. Mcdonough Continue Butrans patch Refill Hydrocodone early tomorrow 12/23/2012 Appointment: María Elena Appiahtel: [address] [place] [address] FOLLOW UP 12/23/2012 Patient Education: Patient Medication Summary Completed 12/23/2012 Appointment: Lashawn Eckert WPtel: [address] [place] [address] ACUTE ILLNESS 12/16/2012 Patient Education: Patient Medication Summary Completed 12/16/2012 Visit Plan: Proceed with updated MRI of LS spine Continue gabapentin and add soma and diclofenac Will likely need to go for another epidural 12/09/2012 Appointment: María Elena Appiah WPtel: [address] [place] [address] ACUTE ILLNESS 12/09/2012 Patient Education: Patient Medication Summary Completed 12/09/2012 Visit Plan: Injection as above Finish me drol dose pack Chiropracter this afternoon 12/04/2012 Appointment: María Elena Appiah WPtel: [address] [place] [address] ACUTE ILLNESS 12/04/2012 Patient Education: Patient Medication Summary Completed 12/04/2012 Appointment: Mary Tillman WPtel: [address] [place] [address] FOLLOW UP 11/22/2012 Patient Education: Patient Medication Summary Completed 11/22/2012 Appointment: María Elena Appiah WPtel: [address] [place] [address] ACUTE ILLNESS 11/21/2012 Patient Education: Patient Medication Summary Completed 11/21/2012 Appointment: María Elena Appiah WPtel: [address] [place] [address] BP CHECK 11/07/2012 Patient Education: Patient Medication [...] BP re-check. 10/29/2012 Appointment: Lashawn Eckert WPtel: [address] [place] [address] ACUTE ILLNESS 10/29/2012 Patient Education: Patient Medication Summary Completed 10/29/2012 Appointment: María Elena Appiah WPtel: [address] [place] [address] ACUTE ILLNESS 10/14/2012 Patient Education: Patient Medication Summary Completed 10/14/2012 Appointment: María Elena Appiah WPtel: [address] [place] [address] 09/27/2012 Patient Education: Patient Medication Summary Completed 09/27/2012 Appointment: María Elena Appiah WPtel: [address] [place] [address] ACUTE ILLNESS 09/25/2012 Patient Education: Patient Medication Summary Completed 09/25/2012 Appointment: María Elena Appiah WPtel: [address] [place] [address] BP CHECK 09/24/2012 Appointment: María Elena Appiah WPtel: [address] [place] [address] ACUTE ILLNESS 08/29/2012 Patient Education: Patient Medication Summary Completed 08/29/2012 Visit Plan: Cryotherapy as above See Karlos m for right ear lesion--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 ACUTE ILLNESS 05/06/2012 Patient Education: Patient Medication Summary Completed 05/06/2012 Visit Plan: Pt wants to hold on any furt her sleep medications 04/03/2012 Appointment: María Elena Appiah WPtel: [address] [place] [address] FOLLOW UP 04/03/2012 Patient Education: Patient Medication Summary Completed 04/03/2012 Appointment: María Elena Appiah WPtel: [address] [place] [address] FOLLOW UP 03/19/2012 Patient Education: Patient Medication Summary Completed 03/19/2012 Appointment: María Elena Appiah WPtel: [address] [place] [address] BP CHECK 02/22/2012 Patient Education: Patient Medication Summary Completed 02/22/2012 Appointment: María Elena Appiah WPtel: [address] [place] [address] BP CHECK 02/21/2012 Patient Education: Patient Medication Summary Completed 02/21/2012 Visit Plan: Doxycycline and bactroban fo r foot Supportive care on ankles and knees Add norvasc for BP 02/20/2012 Appointment: María Elena Appiah WPtel: [address] [place] [address] ER Follow UP 02/20/2012 Patient Education: Patient Medication Summary Completed 02/20/2012 Appointment: María Elena Appiah WPtel: [address] [place] [address] ACUTE ILLNESS 01/30/2012 Patient Education: Patient Medication Summary Completed 01/30/2012 Appointment: María Elena Appiah WPtel: [address] [place] [address] ACUTE ILLNESS 01/24/2012 Patient Education: Patient Medication Summary Completed 01/24/2012 Visit Plan: Daily back stretches, moist heat, Biofreeze prn OMT done 01/10/2012 Appointment: María Elena Appiahtel: [address] [place] [address] ACUTE ILLNESS 01/10/2012 Patient Education: Patient Medication Summary Completed 01/10/2012 Appointment: María Elena Appiahtel: [address] [place] [address] FOLLOW UP 12/11/2011 Patient Education: Patient Medication Summary Completed 12/11/2011 Appointment: María Elena Appiahtel: [address] [place] [address] ACUTE ILLNESS 11/09/2011 Patient Education: Patient Medication Summary Completed 11/09/2011 Appointment: María Elena Appiahtel: [address] [place] [address] ACUTE ILLNESS 09/13/2011 Patient Education: Patient Medication Summary Completed 09/13/2011 Visit Plan: Check CBC, TSH, Free T4, CMP , ESR, Vit D, B12 now Start Prednisone today 08/31/2011 Appointment: María Elena Appiahtel: [address] [place] [address] ACUTE ILLNESS 08/31/2011 Patient Education: Patient Medication Summary Completed 08/31/2011 Appointment: María Elena Appiahtel: [address] [place] [address] [place] INJECTION 07/20/2011 Patient Education: Patient Medication Summary Completed 07/20/2011 Visit Plan: Continue current meds Monite r BP Cont stretches from PT 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 07/06/2011 Appointment: María Elena Appiahtel: [address] [place] [address] FOLLOW UP 07/06/2011 Patient Education: Patient Medication Summary Completed 07/06/2011 Appointment: María Elena Appiahtel: [address] [place], [place] [phone] BP CHECK 06/06/2011 Patient Education: Patient Medication Summary Completed 06/06/2011 Visit Plan: Add Bystolic at 2.5mg QAM Ad d Robaxin 750mg 2 po q HS BP check in 2wks 05/22/2011 Appointment: María Elena Appiah WPtel: [address] [place], [place] [phone] FOLLOW UP 05/22/2011 Patient Education: Patient Medication Summary Completed 05/22/2011 Appointment: María Elena Appiah WPtel: [address] [place], [place] [phone] ER Follow UP 05/09/2011 Patient Education: Patient Medication Summary Completed 05/09/2011 Appointment: María Elena Appiah WPtel: [address] [place] [address] FOLLOW UP 02/22/2011 Visit Plan: Rx written for Hydrocodone 1 0/325mg #240 See Ortho 02/14/2011 Appointment: María Elena Appiah WPtel: [address] [place], [place] [phone] OMT 02/14/2011 Patient Education: Patient Medication [...] work. 02/03/2011 Appointment: Lashawn Eckert WPtel: [address] [place], [place] [phone] ACUTE ILLNESS 02/03/2011 Patient Education: Patient Medication Summary Completed 02/03/2011 Visit Plan: OMT done Cont daily stretche s 01/31/2011 Appointment: María Elena Appiahtel: [address] [place] [address] ACUTE ILLNESS 01/31/2011 Patient Education: Patient Medication Summary Completed 01/31/2011 Visit Plan: Continue pain meds OMT done Proceed with PT No work this summer01/25/2011 Appointment: María Elena Appiah WPtel: [address] [place] [address] ACUTE ILLNESS 01/25/2011 Patient Education: Patient Medication Summary Completed 01/25/2011 Visit Plan: Start PT Long discussion abo ut getting pain meds from only and can only have max of 4grams of tylenol per day Change to Hydrocodone 10/325mg 1- 2 po TID prn pain--#180 called to [place] 01/18/2011 Appointment: María Elena Appiah WPtel: [address] [place] [address] FOLLOW UP 01/18/2011 Patient Education: Patient Medication Summary Completed 01/18/2011 Visit Plan: Daily back stretches, moist heat, Biofreeze prn 11/29/2010 Appointment: María Elena Appiahtel: [address] [place] [address] ER Follow UP 11/29/2010 Patient Education: Patient Medication Summary Completed 11/29/2010 Visit Plan: Saline nasal flushes prn. Ty lenol/Motrin prn headache. Notify if persists/symptoms worsening. Finish augmentin Add Medrol Dose Pack 10/10/2010 Appointment: María Elena Appiahtel: [address] [place] [address] ACUTE ILLNESS 10/10/2010 Patient Education: Patient Medication Summary Completed 10/10/2010 Visit Plan: Cryotherapy x3 to multiple l esions on both forearms 07/19/2010 Appointment: María Elena Appiahtel: [address] [place], [place] [phone] [place] OFFICE SURGERY 07/19/2010 Patient Education: Patient Medication Summary Completed 07/19/2010 Appointment: María Elena Appiah WPtel: [address] [place], [place] [phone] [place] BP CHECK 07/06/2010 Patient Education: Patient Medication Summary Completed 07/06/2010 Appointment: María Elena Appiah WPtel: [address] [place], [place] [phone] [place] BP CHECK 06/30/2010 Patient Education: Patient Medication Summary Completed 06/30/2010 Appointment: María Elena Appiah WPtel: [address] [place], [place] [phone] [place] BP CHECK 06/20/2010 Patient Education: Patient Medication Summary Completed 06/20/2010 Visit Plan: Change Diovan to Exforge 160 /5mg QD OMT done to thoracics BP check in 2wks 06/07/2010 Appointment: María Elena Appiah WPtel: [address] [place] [address] FOLLOW UP 06/07/2010 Patient Education: Patient Medication Summary Completed 06/07/2010 Appointment: María Elena Appiah WPtel: [address] [place], [place] [phone] [place] BP CHECK 06/03/2010 Patient Education: Patient Medication Summary Completed 06/03/2010 Appointment: María Elena Appiah WPtel: [address] [place], [place] [phone] [place] BP CHECK 06/01/2010 Patient Education: Patient Medication Summary Completed 06/01/2010 Visit Plan: Irritated skin tags to left neck x2 excised at base with scissors and base cauterized 05/30/2010 Appointment: María Elena Appiah WPtel: [address] [place], [place] [phone] OFFICE SURGERY 05/30/2010 Patient Education: Patient Medication Summary Completed 05/30/2010 Visit Plan: Saline nasal flushes prn. Ty lenol/Motrin prn headache. Notify if persists/symptoms worsening. Restart Nasonex Has allergy testing set for May 25 04/27/2010 Appointment: María Elena Appiahtel: [address] [place] [address] ACUTE ILLNESS 04/27/2010 Patient Education: Patient Medication Summary Completed 04/27/2010 Visit Plan: Saline nasal flushes prn. Ty lenol/Motrin prn headache. Notify if persists/symptoms worsening. Omnaris BID plus injections 04/05/2010 Appointment: María Elena Appiahtel: [address] [place] [address] ACUTE ILLNESS 04/05/2010 Patient Education: Patient Medication Summary Completed 04/05/2010 Visit Plan: Saline nasal flushes prn. Ty lenol/Motrin prn headache. Notify if persists/symptoms worsening. 03/09/2010 Appointment: María Elena Appiah WPtel: [address] [place] [address] ACUTE ILLNESS 03/09/2010 Patient Education: Patient Medication Summary Completed 03/09/2010 Visit Plan: Cont Clonidine as is Cont Pr emarin Fwup with surgery as scheduled 03/03/2010 Appointment: María Elena Appiahtel: [address] [place] [address] FOLLOW UP 03/03/2010 Patient Education: Patient Medication Summary Completed 03/03/2010 Visit Plan: Check Pelvic US now Dukee tacho Dand C vs Hysterectomy 01/17/2010 Appointment: María Elena Appiahtel: [address] [place] [address] ACUTE ILLNESS 01/17/2010 Patient Education: Patient Medication Summary Completed 01/17/2010 Visit Plan: Check fasting lab and schedu le Mammogram 2gm Na Diet Trial of Ambien 10mg qhs Fwup pending lab results 12/27/2009 Appointment: María Elena Appiahtel: [address] [id number] [place] ESTABLISHED PATIENT 12/27/2009 Patient Education: Patient Medication Summary Completed 12/27/2009 Referral: Canelo Overton WPtel: [address] [id number] [place] Referral Initiated Referral: Mark Philipp WPtel: [address] [id number] [place] Referral Appointment Requested Instructions Comment . [...]
--- OUTSIDE RECORDS SUMMARY | 2020-03-13 06:45 | XMS REPORT | CCD ---
Author Author Gale Appiah D.O. Organization [facility] Address [address] [place] [phone] Phone Care Team Providers Care [employer] Name Role Phone María Elena Appiah D.O., PP Unavailable CCM Unavailable Summary Purpose Interface Exchange Insurance Providers Payer name Policy type / Coverage type Covered libertarian ID Effective Begin Date Effective End Date [facility] Commercial Insurance [id number] Unknown Family History Family History data not found Social History Social History Element Codes Description Effective Dates Tobacco history SNOMED CT: [id number] Never smoker 05/22/2011 Allergies, Adverse Reactions, Alerts [...] Fill Instructions gabapentin 300 mg capsule RxNorm: 578952 TAKE ONE CAPSU LE BY MOUTH EVERY NIGHT AT BEDTIME 09/19/2019 No Stop Date Active baclofen 10 mg tablet RxNorm: 784017 TAKE ONE TABLET BY MOUTH THREE TIMES A DAY NEEDED 09/19/2019 No Stop Date Active Klor-Con 8 mEq tablet,extended release RxNorm: 357747 T FARRUKH ONE TABLET BY MOUTH TWICE A DAY 1 Tablet(s) Oral two times a day 09/19/2019 10/19/2019 Act darion hydrocodone 10 mg-acetaminophen 325 mg tablet RxNorm: 473034 1-2 Tablet(s) Oral three times a day as needed for pain 09/19/2019 No Stop Date Active duloxetine 60 mg capsule,delayed release RxNorm: 881713 TAKE ONE CAPSULE BY MOUTH DAILY 09/11/2019 No Stop Date Active Lipitor 10 mg tablet RxNorm: 441789 TAKE ONE TABLET BY MOUTH AT BEDTIME 09/11/2019 No Stop Date Active lisinopril 20 mg tablet RxNorm: 654675 TAKE ONE TABLET BY MOUTH DAILY .... THIS REPLACE 10MG TABLETS 09/11/2019 No Stop Date Active triamterene 75 mg-hydrochlorothiazide 50 mg tablet RxNorm: 3 47011 TAKE ONE TABLET BY MOUTH DAILY 09/11/2019 No Stop Date Active allopurinol 300 mg tablet RxNorm: 814737 TAKE ONE TABLET BY LOPEZ TH DAILY 09/11/2019 No Stop Date Active celecoxib 200 mg capsule RxNorm: 665779 TAKE ONE CAPSUL E BY MOUTH TWICE A DAY NEEDED FOR PAIN 09/11/2019 No Stop Date Active clonidine HCl 0.1 mg tablet RxNorm: 605711 TAKE ONE TAB LET BY MOUTH FOUR TIMES A DAY 09/11/2019 No Stop Date Active doxepin 25 mg capsule RxNorm: 6393852 1 Capsule(s) Oral every night at bedtime as needed for sleep 08/21/2019 11/18/2019 Active hydrocodone 10 mg-acetaminophen 325 mg tablet RxNorm: 326659 1-2 Tablet(s) PO TID 08/12/2019 No Stop Date Active as needed for pa in - Previous quantity #240, will start dosing for #180 in April 2011 per Doctor Td. Medrol (Dustin) 4 mg tablets in a dose pack RxNorm: 641075 Tablet(s) Oral As Directed 07/21/2019 No Stop Date Active Premarin 1.25 mg tablet RxNorm: 054634 1 Tablet(s) Oral QD 07/02/20 19 03/28/2020 Active hydrocodone 10 mg-acetaminophen 325 mg tablet RxNorm: 728063 1-2 Tablet(s) PO TID 07/01/2019 08/11/2019 Inactive as needed for pa in - Previous quantity #240, will start dosing for #180 in April 2011 per Doctor Td. gabapentin 300 mg capsule RxNorm: 078819 1 Capsule(s) PO QHS 201809/18/2019 Inactive celecoxib 200 mg capsule RxNorm: 989267 1 Capsule(s) Or al two times a day as needed for pain 06/27/2019 06/27/2019 Inactive Singulair 10 mg tablet RxNorm: 228966 TAKE ONE TABLET BY MOUTH JOSÉ Y 06/24/2019 No Stop Date Active furosemide 40 mg tablet RxNorm: 451985 TAKE ONE TABLET BY MOUTH EVERY MORNING NEEDED FOR EDEMA . TAKE WITH POTASSIUM 06/24/2019 No Stop Date Active doxepin 25 mg capsule RxNorm: 3731505 TAKE ONE CAPSULE B Y MOUTH EVERY NIGHT AT BEDTIME NEEDED FOR SLEEP 06/24/2019 08/20/2019 Inactive lisinopril 20 mg tablet RxNorm: 234708 TAKE ONE TABLET BY MOUTH DAILY .... THIS REPLACE 10MG TABLETS 06/24/2019 09/10/2019 Inactive nystatin-triamcinolone 100,000 unit/g-0.1 % topical cream Rx Norm: 3951899 1 Application Topical two times a day 06/12/2019 06/19/2019 Inactive apply BID for 1 week nystatin-triamcinolone 100,000 unit/g-0.1 % topical cream Rx Norm: 5179927 1 Application Topical two times a day 06/12/2019 06/11/2019 Inactive apply BID for 1 week hydrocodone 10 mg-acetaminophen 325 mg tablet RxNorm: 101863 1-2 Tablet(s) PO QID as needed for pain MUST LAST 30 DAYS 05/28/2019 06/26/2019 Inactiv e (Response to an electronic controlled substance refill request - [facility] [id number]) baclofen 20 mg tablet RxNorm: 256921 1 Tablet(s) PO TID as needed for muscle spasm 05/19/2019 05/27/2019 Inactive gabapentin 300 mg capsule RxNorm: 053695 1 Capsule(s) PO QHS 201805/27/2019 Inactive lisinopril 20 mg tablet RxNorm: 483437 1 Tablet(s) PO Q D TAKE ONE TABLET BY MOUTH DAILY, REPLACES 10 MG DOSE 05/19/2019 06/23/2019 Inactive doxepin 25 mg capsule RxNorm: 1680647 TAKE ONE CAPSULE B Y MOUTH EVERY NIGHT AT BEDTIME NEEDED FOR SLEEP 05/16/2019 06/14/2019 Inactive lisinopril 20 mg tablet RxNorm: 549727 TAKE ONE TABLET BY MOUTH DAILY, REPLACES 10 MG DOSE 05/16/2019 05/18/2019 Inactive Singulair 10 mg tablet RxNorm: 331922 TAKE ONE TABLET BY MOUTH JOSÉ Y 05/16/2019 06/14/2019 Inactive gabapentin 300 mg capsule RxNorm: 782557 1 Capsule(s) PO QHS 201805/04/2019 Inactive estropipate 1.5 mg tablet RxNorm: 693205 1 Tablet(s) PO QD 05/05/2005/27/2019 Inactive estropipate 1.5 mg tablet RxNorm: 902388 1 Tablet(s) PO QD 05/05/2005/04/2019 Inactive gabapentin 300 mg capsule RxNorm: 535245 1 Capsule(s) PO QHS 201805/18/2019 Inactive hydrocodone 10 mg-acetaminophen 325 mg tablet RxNorm: 195250 1-2 Tablet(s) PO QID as needed for pain MUST LAST 30 DAYS 04/25/2019 05/24/2019 Inactiv e (Response to an electronic controlled substance refill request - RxReferenceNumber: [id number]) metoprolol tartrate 100 mg tablet RxNorm: 180139 TAKE O NE TABLET BY MOUTH TWICE A DAY 04/24/2019 06/22/2019 Inactive cyclobenzaprine 10 mg tablet RxNorm: 792783 TAKE ONE TA BLET BY MOUTH THREE TIMES A DAY NEEDED FOR MUSCLE SPASMS 04/24/2019 05/18/2019 Inactive Lyrica 75 mg capsule RxNorm: 641241 1 Capsule(s) PO QHS 03/25/2019 Inactive duloxetine 60 mg capsule,delayed release RxNorm: 297782 TAKE ONE CAPSULE BY MOUTH DAILY 03/21/2019 05/19/2019 Inactive triamterene 75 mg-hydrochlorothiazide 50 mg tablet RxNorm: 3 00331 TAKE ONE TABLET BY MOUTH DAILY 03/21/2019 05/19/2019 Inactive Klor-Con 8 mEq tablet,extended release RxNorm: 777048 T FARRUKH ONE TABLET BY MOUTH TWICE A DAY 03/21/2019 09/18/2019 Inactive Lipitor 10 mg tablet RxNorm: 409466 TAKE ONE TABLET BY MOUTH AT BEDTIME 03/21/2019 09/10/2019 Inactive clonidine HCl 0.1 mg tablet RxNorm: 146864 TAKE ONE TAB LET BY MOUTH FOUR TIMES A DAY 03/21/2019 05/19/2019 Inactive allopurinol 300 mg tablet RxNorm: 739772 TAKE ONE TABLET BY LOPEZ TH DAILY 03/21/2019 05/19/2019 Inactive hydrocodone 10 mg-acetaminophen 325 mg tablet RxNorm: 334286 1-2 Tablet(s) PO QID as needed for pain MUST LAST 30 DAYS 02/28/2019 03/29/2019 Inactiv e (Response to an electronic controlled substance refill request - RxReferenceNumber: [id number]) furosemide 40 mg tablet RxNorm: 766571 TAKE ONE TABLET BY MOUTH EVERY MORNING NEEDED FOR EDEMA . TAKE WITH POTASSIUM 02/21/2019 03/22/2019 Inactive cyclobenzaprine 10 mg tablet RxNorm: 332191 TAKE ONE TA BLET BY MOUTH THREE TIMES A DAY NEEDED FOR MUSCLE SPASMS 02/21/2019 04/21/2019 Inactive lisinopril 20 mg tablet RxNorm: 491060 TAKE ONE TABLET BY MOUTH DAILY, REPLACES 10 MG DOSE 02/21/2019 05/15/2019 Inactive doxepin 25 mg capsule RxNorm: 8802897 TAKE ONE CAPSULE B Y MOUTH EVERY NIGHT AT BEDTIME NEEDED FOR SLEEP 02/21/2019 05/15/2019 Inactive nystatin 100,000 unit/gram topical cream RxNorm: 754501 APPLY TO AFFECTED AREA(S) TWO TIMES A DAY 02/21/2019 03/22/2019 Inactive estradiol 1 mg tablet RxNorm: 647786 2 Tablet(s) PO QD replaces premarin 01/22/2019 05/04/2019 Inactive lisinopril 20 mg tablet RxNorm: 821192 TAKE ONE TABLET BY MOUTH DAILY, REPLACES 10 MG DOSE 01/20/2019 02/18/2019 Inactive cyclobenzaprine 10 mg tablet RxNorm: 848837 TAKE ONE TA BLET BY MOUTH THREE TIMES A DAY NEEDED FOR MUSCLE SPASMS 01/20/2019 02/18/2019 Inactive metoprolol tartrate 100 mg tablet RxNorm: 200435 TAKE O NE TABLET BY MOUTH TWICE A DAY 01/20/2019 02/18/2019 Inactive cyclobenzaprine 10 mg tablet RxNorm: 350248 TAKE ONE TA BLET BY MOUTH THREE TIMES A DAY NEEDED FOR MUSCLE SPASMS 12/19/2018 01/17/2019 Inactive lisinopril 20 mg tablet RxNorm: 073141 TAKE ONE TABLET BY MOUTH DAILY, REPLACES 10 MG DOSE 12/19/2018 01/17/2019 Inactive duloxetine 60 mg capsule,delayed release RxNorm: 628919 TAKE ONE CAPSULE BY MOUTH DAILY 12/19/2018 01/17/2019 Inactive Lipitor 10 mg tablet RxNorm: 763430 TAKE ONE TABLET BY MOUTH AT BEDTIME 12/19/2018 01/17/2019 Inactive cyclobenzaprine 10 mg tablet RxNorm: 461103 1 Tablet(s) PO TID as needed for muscle spasm 11/19/2018 12/18/2018 Inactive Singulair 10 mg tablet RxNorm: 802266 1 Tablet(s) PO QD 11/19/2018 Inactive lisinopril 20 mg tablet RxNorm: 953530 TAKE ONE TABLET BY MOUTH DAILY, REPLACES 10 MG DOSE 11/15/2018 12/18/2018 Inactive hydrocodone 10 mg-acetaminophen 325 mg tablet RxNorm: 517700 1-2 Tablet(s) PO QID as needed for pain MUST LAST 30 DAYS 11/13/2018 12/12/2018 Inactiv e (Response to an electronic controlled substance refill request - RxReferenceNumber: [id number]) nystatin 100,000 unit/gram topical cream RxNorm: 449007 APPLY TO AFFECTED AREA(S) TWO TIMES A DAY 10/23/2018 11/06/2018 Inactive lisinopril 20 mg tablet RxNorm: 544826 1 Tablet(s) PO QD replac es 10mg dose 10/18/2018 11/14/2018 Inactive hydrocodone 10 mg-acetaminophen 325 mg tablet RxNorm: 000986 1-2 Tablet(s) QID as needed for pain MUST LAST 30 DAYS 10/08/2018 11/06/2018 Inactive (Response to an electronic controlled substance refill request - RxReferenceNumber: [id number]) lisinopril 10 mg tablet RxNorm: 922228 1 Tablet(s) PO QD 10/03/2018 0 01/21/2019 Inactive Celebrex 200 mg capsule RxNorm: 869597 TAKE ONE CAPSULE BY MOUT H TWICE A DAY 09/30/2018 05/04/2019 Inactive cyclobenzaprine 10 mg tablet RxNorm: 488338 TAKE ONE TA BLET BY MOUTH THREE TIMES A DAY NEEDED FOR MUSCLE SPASMS 09/30/2018 11/18/2018 Inactive doxepin 25 mg capsule RxNorm: 0779500 TAKE ONE CAPSULE B Y MOUTH EVERY NIGHT AT BEDTIME NEEDED 09/05/2018 10/16/2018 Inactive omeprazole 40 mg capsule,delayed release RxNorm: 988096 TAKE ONE CAPSULE BY MOUTH DAILY 09/05/2018 01/21/2019 Inactive furosemide 40 mg tablet RxNorm: 453480 TAKE ONE TABLET BY MOUTH EVERY MORNING NEEDED FOR EDEMA . TAKE WITH POTASSIUM 09/05/2018 11/03/2018 Inactive phentermine 37.5 mg tablet RxNorm: 205594 1 Tablet(s) PO QAM 201701/21/2019 Inactive doxepin 25 mg capsule RxNorm: 1495118 1 Capsule(s) PO QH S as needed for sleep TAKE ONE CAPSULE BY MOUTH EVERY NIGHT AT BEDTIME NEEDED 08/27/2018 09/04/2018 Inactive Keflex 500 mg capsule RxNorm: 730970 1 Capsule(s) PO TID 08/09/2018 1 10/19/2017 Inactive Diflucan 100 mg tablet RxNorm: 820144 1 Tablet(s) PO QD 08/09/2018 Inactive Premarin 1.25 mg tablet RxNorm: 128972 2 Tablet(s) PO QD 08/09/2018 0 05/04/2019 Inactive Zofran ODT 4 mg disintegrating tablet RxNorm: 607939 1 Tablet(s) PO Q4H as needed for nausea 08/09/2018 01/21/2019 Inactive metoprolol tartrate 100 mg tablet RxNorm: 780550 TAKE O NE TABLET BY MOUTH TWICE A DAY 2018 10/04/2018 Inactive doxepin 25 mg capsule RxNorm: 4250811 TAKE ONE CAPSULE B Y MOUTH EVERY NIGHT AT BEDTIME NEEDED 2018 08/26/2018 Inactive cyclobenzaprine 10 mg tablet RxNorm: 804149 TAKE ONE TA BLET BY MOUTH THREE TIMES A DAY NEEDED FOR MUSCLE SPASMS 2018 09/29/2018 Inactive hydrocodone 10 mg-acetaminophen 325 mg tablet RxNorm: 858502 1-2 Tablet(s) QID as needed for pain MUST LAST 30 DAYS 07/29/2018 08/27/2018 Inactive (Response to an electronic controlled substance refill request - RxReferenceNumber: [id number]) nystatin 100,000 unit/gram topical powder RxNorm: 438200 Applic ation TOP BID 07/22/2018 08/04/2018 Inactive doxepin 25 mg capsule RxNorm: 7646115 1 Capsule(s) PO QHS as needed 07/22/2018 08/05/2018 Inactive triamterene 75 mg-hydrochlorothiazide 50 mg tablet RxNorm: 3 17511 TAKE ONE TABLET BY MOUTH DAILY 07/05/2018 10/02/2018 Inactive duloxetine 60 mg capsule,delayed release RxNorm: 294482 TAKE ONE CAPSULE BY MOUTH DAILY 07/05/2018 09/02/2018 Inactive Klor-Con 8 mEq tablet,extended release RxNorm: 880834 T FARRUKH ONE TABLET BY MOUTH TWICE A DAY 07/05/2018 10/02/2018 Inactive Lipitor 10 mg tablet RxNorm: 764604 TAKE ONE TABLET BY MOUTH AT BEDTIME 07/05/2018 09/02/2018 Inactive allopurinol 300 mg tablet RxNorm: 584817 TAKE ONE TABLET BY LOPEZ TH DAILY 07/05/2018 10/02/2018 Inactive clonidine HCl 0.1 mg tablet RxNorm: 822113 TAKE ONE TAB LET BY MOUTH FOUR TIMES A DAY 07/05/2018 10/02/2018 Inactive hydrocodone 10 mg-acetaminophen 325 mg tablet RxNorm: 260814 1-2 Tablet(s) QID as needed for pain MUST LAST 30 DAYS 06/28/2018 07/27/2018 Inactive (Response to an electronic controlled substance refill request - RxReferenceNumber: [id number]) MediHoney (calcium alginate-honey) 4" X 5" bandage RxNorm: 1 Application TOP QD 06/17/2018 06/26/2018 Inactive honey-hydrocolloid dressing 4" X 5" RxNorm: 1 Application TOP QD 06/17/2018 07/16/2018 Inactive furosemide 40 mg tablet RxNorm: 127224 TAKE ONE TABLET BY MOUTH EVERY MORNING NEEDED FOR EDEMA . TAKE WITH POTASSIUM 06/10/2018 07/09/2018 Inactive This is a refill request. hydrocodone 10 mg-acetaminophen 325 mg tablet RxNorm: 512341 1-2 Tablet(s) QID as needed for pain MUST LAST 30 DAYS 05/30/2018 06/27/2018 Inactive (Response to an electronic controlled substance refill request - RxReferenceNumber: [id number]) acyclovir 800 mg tablet RxNorm: 522834 1 Tablet(s) PO 5x day 201705/22/2018 Inactive Premarin 1.25 mg tablet RxNorm: 067565 1-2 Tablet(s) PO QD 05/15/20 18 07/13/2018 Inactive cyclobenzaprine 10 mg tablet RxNorm: 204318 1 Tablet(s) PO TID as needed for muscle spasm 05/09/2018 05/08/2018 Inactive Medrol (Dustin) 4 mg tablets in a dose pack RxNorm: 564329 Tablet(s) PO As Directed 05/02/2018 06/16/2018 Inactive hydrocodone 10 mg-acetaminophen 325 mg tablet RxNorm: 877176 1-2 Tablet(s) QID as needed for pain MUST LAST 30 DAYS 04/30/2018 05/29/2018 Inactive (Response to an electronic controlled substance refill request - RxReferenceNumber: [id number]) duloxetine 60 mg capsule,delayed release RxNorm: 901789 TAKE ONE CAPSULE BY MOUTH DAILY 04/16/2018 05/15/2018 Inactive Celebrex 200 mg capsule RxNorm: 576576 TAKE ONE CAPSULE BY MOUT H TWICE A DAY 04/16/2018 06/14/2018 Inactive Singulair 10 mg tablet RxNorm: 964907 TAKE ONE TABLET BY MOUTH JOSÉ Y 04/16/2018 11/19/2018 Inactive Lipitor 10 mg tablet RxNorm: 265808 TAKE ONE TABLET BY MOUTH AT BEDTIME 04/16/2018 05/15/2018 Inactive hydrocodone 10 mg-acetaminophen 325 mg tablet RxNorm: 519108 1-2 Tablet(s) QID as needed for pain MUST LAST 30 DAYS 03/29/2018 04/27/2018 Inactive (Response to an electronic controlled substance refill request - RxReferenceNumber: [id number]) cyclobenzaprine 10 mg tablet RxNorm: 494152 1 Tablet(s) PO TID as needed for muscle spasm 03/18/2018 05/09/2018 Inactive omeprazole 40 mg capsule,delayed release RxNorm: 929777 1 Capsu le(s) PO QD 02/26/2018 08/24/2018 Inactive hydrocodone 10 mg-acetaminophen 325 mg tablet RxNorm: 412097 1-2 Tablet(s) QID as needed for pain MUST LAST 30 DAYS 02/26/2018 03/27/2018 Inactive (Response to an electronic controlled substance refill request - RxReferenceNumber: [id number]) metoprolol tartrate 100 mg tablet RxNorm: 106444 1 Tablet(s) PO BID 02/18/2018 08/05/2018 Inactive Lyrica 75 mg capsule RxNorm: 707206 1 Capsule(s) PO QHS 01/30/2018 Inactive phentermine 37.5 mg tablet RxNorm: 132311 1 Tablet(s) PO QAM 201706/16/2018 Inactive hydrocodone 10 mg-acetaminophen 325 mg tablet RxNorm: 076897 1-2 Tablet(s) QID as needed for pain MUST LAST 30 DAYS 01/29/2018 02/25/2018 Inactive (Response to an electronic controlled substance refill request - RxReferenceNumber: [id number]) Klor-Con 8 mEq tablet,extended release RxNorm: 070991 1 Tablet( s) PO BID 01/14/2018 07/04/2018 Inactive allopurinol 300 mg tablet RxNorm: 303423 1 Tablet(s) PO QD 01/15/2007/04/2018 Inactive Lipitor 10 mg tablet RxNorm: 408098 1 Tablet(s) PO QHS 01/14/201812/2017 Inactive triamterene 75 mg-hydrochlorothiazide 50 mg tablet RxNorm: 3 22933 1 Tablet(s) PO QD 01/14/2018 07/04/2018 Inactive hydrocodone 10 mg-acetaminophen 325 mg tablet RxNorm: 696061 1-2 Tablet(s) QID as needed for pain MUST LAST 30 DAYS 12/27/2017 01/25/2018 Inactive (Response to an electronic controlled substance refill request - RxReferenceNumber: [id number]) Onglyza 5 mg tablet RxNorm: 579184 1 Tablet(s) PO QD 12/18/201701/29 Inactive metformin 500 mg tablet RxNorm: 440231 1 Tablet(s) PO BID 12/11/2017 12/10/2017 Inactive metformin 500 mg tablet RxNorm: 760843 1 Tablet(s) PO BID 12/11/2017 12/17/2017 Inactive furosemide 40 mg tablet RxNorm: 692626 1 Tablet(s) PO Q AM prn edema--take with potassium 12/11/2017 06/08/2018 Inactive cyclobenzaprine 10 mg tablet RxNorm: 707786 1 Tablet(s) PO TID as needed for muscle spasm 12/11/2017 03/18/2018 Inactive hydrocodone 10 mg-acetaminophen 325 mg tablet RxNorm: 693496 1-2 Tablet(s) QID as needed for pain MUST LAST 30 DAYS 10/23/2017 11/21/2017 Inactive (Response to an electronic controlled substance refill request - RxReferenceNumber: [id number]) Lipitor 10 mg tablet RxNorm: 392683 1 Tablet(s) PO QHS 10/16/201703/2018 Inactive cyclobenzaprine 10 mg tablet RxNorm: 420485 1 Tablet(s) PO TID as needed for muscle spasm 10/09/2017 12/10/2017 Inactive hydroxyzine HCl 25 mg tablet RxNorm: 935298 1 Tablet(s) PO BID as needed for anxiety 09/20/2017 01/29/2018 Inactive Effexor XR 75 mg capsule,extended release RxNorm: 619910 1 Caps ule(s) PO QD 09/20/2017 01/29/2018 Inactive metoprolol tartrate 100 mg tablet RxNorm: 284035 1 Tablet(s) PO BID 08/20/2017 02/18/2018 Inactive baclofen 20 mg tablet RxNorm: 989479 1 Tablet(s) PO TID as needed for muscle spasm 08/20/2017 01/21/2019 Inactive clonidine HCl 0.1 mg tablet RxNorm: 749998 1 Tablet(s) PO QID 08/2005/16/2018 Inactive Seroquel 25 mg tablet RxNorm: 939372 1 Tablet(s) PO QHS 08/17/2017 Inactive Seroquel 25 mg tablet RxNorm: 570662 1 Tablet(s) PO QHS 08/17/2017 Inactive Diflucan 100 mg tablet RxNorm: 339770 TAKE ONE TABLET BY MOUTH JOSÉ Y 07/25/2017 08/07/2017 Inactive hydrocodone 10 mg-acetaminophen 325 mg tablet RxNorm: 578644 1-2 Tablet(s) QID as needed for pain MUST LAST 30 DAYS 07/19/2017 08/17/2017 Inactive (Response to an electronic controlled substance refill request - RxReferenceNumber: [id number]) clindamycin 300 mg capsule RxNorm: 826757 1 Capsule(s) PO TID 07/1907/28/2017 Inactive clotrimazole-betamethasone 1 %-0.05 % topical cream RxNorm: 576646 Application TOP BID to elbow rash 07/19/2017 06/16/2018 Inactive Singulair 10 mg tablet RxNorm: 881487 Tablet(s) TAKE ONE TABLET BY MOUTH DAILY 07/18/2017 04/13/2018 Inactive triamterene 75 mg-hydrochlorothiazide 50 mg tablet RxNorm: 3 75854 1 Tablet(s) PO QD 07/18/2017 01/14/2018 Inactive Celebrex 200 mg capsule RxNorm: 461297 Capsule(s) TAKE ONE CAPSULE BY MOUTH TWICE A DAY 07/18/2017 10/15/2017 Inactive hydrocodone 10 mg-acetaminophen 325 mg tablet RxNorm: 140691 1-2 Tablet(s) QID as needed for pain MUST LAST 30 DAYS 06/19/2017 07/18/2017 Inactive (Response to an electronic controlled substance refill request - RxReferenceNumber: [id number]) hydrocodone 10 mg-acetaminophen 325 mg tablet RxNorm: 048573 1-2 Tablet(s) QID as needed for pain MUST LAST 30 DAYS 06/19/2017 06/18/2017 Inactive (Response to an electronic controlled substance refill request - RxReferenceNumber: [id number]) baclofen 20 mg tablet RxNorm: 512044 1 Tablet(s) PO TID as needed for muscle spasm 06/18/2017 08/20/2017 Inactive Medrol (Dustin) 4 mg tablets in a dose pack RxNorm: 025313 Tablet(s) PO As Directed 06/05/2017 07/18/2017 Inactive omeprazole 40 mg capsule,delayed release RxNorm: 655549 1 Capsu le(s) PO QD 04/20/2017 10/16/2017 Inactive Premarin 1.25 mg tablet RxNorm: 488533 1-2 Tablet(s) PO QD 04/11/20 17 05/15/2018 Inactive duloxetine 60 mg capsule,delayed release RxNorm: 234616 1 Capsu le(s) PO QD 04/11/2017 09/19/2017 Inactive furosemide 40 mg tablet RxNorm: 766083 1 Tablet(s) PO Q AM prn edema--take with potassium 04/11/2017 12/11/2017 Inactive Klor-Con 8 mEq tablet,extended release RxNorm: 538729 1 Tablet( s) PO BID 04/11/2017 01/14/2018 Inactive Lipitor 10 mg tablet RxNorm: 324773 1 Tablet(s) PO QHS 04/11/201702/2018 Inactive amlodipine 5 mg-benazepril 20 mg capsule RxNorm: 049221 1 Capsu le(s) PO QD 04/11/2017 01/29/2018 Inactive allopurinol 300 mg tablet RxNorm: 127997 1 Tablet(s) PO QD 04/11/20 17 01/14/2018 Inactive clonidine HCl 0.1 mg tablet RxNorm: 914941 1 Tablet(s) PO QID 04/0508/19/2017 Inactive baclofen 20 mg tablet RxNorm: 877002 1 Tablet(s) PO TID as needed for muscle spasm 04/02/2017 06/18/2017 Inactive Premarin 1.25 mg tablet RxNorm: 602382 1-2 Tablet(s) PO QD 03/20/20 17 04/10/2017 Inactive hydrocodone 10 mg-acetaminophen 325 mg tablet RxNorm: 210325 1-2 Tablet(s) QID as needed for pain MUST LAST 30 DAYS 03/14/2017 01/21/2019 Inactive (Response to an electronic controlled substance refill request - RxReferenceNumber: [id number]) metoprolol tartrate 100 mg tablet RxNorm: 939274 1 Tablet(s) PO BID 02/12/2017 08/20/2017 Inactive hydrocodone 10 mg-acetaminophen 325 mg tablet RxNorm: 239907 1-2 Tablet(s) QID as needed for pain MUST LAST 30 DAYS 02/08/2017 03/09/2017 Inactive (Response to an electronic controlled substance refill request - RxReferenceNumber: [id number]) metoprolol tartrate 100 mg tablet RxNorm: 840851 TAKE O NE TABLET BY MOUTH TWICE A DAY 01/11/2017 02/12/2017 Inactive metoprolol tartrate 100 mg tablet RxNorm: 771666 1 Tablet(s) PO BID 12/18/2016 12/17/2016 Inactive metoprolol tartrate 100 mg tablet RxNorm: 764589 1 Tablet(s) PO BID 12/18/2016 01/10/2017 Inactive furosemide 40 mg tablet RxNorm: 820667 1 Tablet(s) PO Q AM prn edema--take with potassium 12/13/2016 02/10/2017 Inactive amitriptyline 100 mg tablet RxNorm: 501351 1 Tablet(s) PO QHS 11/2812/12/2016 Inactive baclofen 20 mg tablet RxNorm: 529874 1 Tablet(s) PO TID as needed for muscle spasm 11/14/2016 04/01/2017 Inactive triamterene 75 mg-hydrochlorothiazide 50 mg tablet RxNorm: 3 32022 1 Tablet(s) PO QD 11/14/2016 11/13/2016 Inactive metolazone 2.5 mg tablet RxNorm: 235625 TAKE ONE TABLET BY MOUTH DAILY NEEDED FOR EDEMA 11/14/2016 12/12/2016 Inactive triamterene 75 mg-hydrochlorothiazide 50 mg tablet RxNorm: 3 89754 1 Tablet(s) PO QD 11/14/2016 07/18/2017 Inactive amitriptyline 50 mg tablet RxNorm: 758208 TAKE ONE TABL ET BY MOUTH AT BEDTIME NEEDED FOR SLEEP 11/14/2016 11/27/2016 Inactive Cymbalta 60 mg capsule,delayed release RxNorm: 026760 1 Capsule (s) PO QHS 11/14/2016 12/12/2016 Inactive clonidine HCl 0.1 mg tablet RxNorm: 337805 1 Tablet(s) PO QID 11/1304/04/2017 Inactive amitriptyline 50 mg tablet RxNorm: 513356 1 Tablet(s) P O QHS as needed for sleep 11/01/2016 11/27/2016 Inactive duloxetine 60 mg capsule,delayed release RxNorm: 268051 TAKE ONE CAPSULE BY MOUTH DAILY 10/20/2016 01/17/2017 Inactive allopurinol 300 mg tablet RxNorm: 883700 TAKE ONE TABLET BY LOPEZ TH DAILY 10/20/2016 01/16/2017 Inactive Lyrica 75 mg capsule RxNorm: 303244 TAKE ONE CAPSULE BY MOUTH EVERY NIGHT AT BEDTIME 10/20/2016 12/10/2016 Inactive Klor-Con 8 mEq tablet,extended release RxNorm: 815013 T FARRUKH ONE TABLET BY MOUTH TWICE A DAY 10/20/2016 01/17/2017 Inactive Celebrex 200 mg capsule RxNorm: 886238 TAKE ONE CAPSULE BY MOUT H TWICE A DAY 10/20/2016 07/18/2017 Inactive Bystolic 10 mg tablet RxNorm: 353486 TAKE ONE TABLET BY MOUTH EVERY NIGHT AT BEDTIME 10/20/2016 12/17/2016 Inactive amlodipine 5 mg-benazepril 20 mg capsule RxNorm: 321323 TAKE ONE CAPSULE BY MOUTH EVERY NIGHT AT BEDTIME -- TO REPLACE AMLODOPINE 10/20/20162016 Inactive Lipitor 10 mg tablet RxNorm: 205804 TAKE ONE TABLET BY MOUTH EVERY NIGHT AT BEDTIME 10/20/2016 01/17/2017 Inactive alprazolam 0.5 mg tablet RxNorm: 793483 3 Tablet(s) PO QHS as needed for sleep/anxiety 09/20/2016 10/31/2016 Inactive Tamiflu 75 mg capsule RxNorm: 449930 1 Capsule(s) PO QD 09/19/2016 Inactive Lyrica 75 mg capsule RxNorm: 842406 1 Capsule(s) PO QHS 09/19/2016 Inactive prednisone 20 mg tablet RxNorm: 730133 1 Tablet(s) PO QD 08/10/2016 1 10/17/2015 Inactive doxycycline hyclate 100 mg capsule RxNorm: 2841640 1 Capsule(s) PO BID 08/10/2016 08/19/2016 Inactive Medrol (Dustin) 4 mg tablets in a dose pack RxNorm: 688271 Tablet(s) PO As Directed 07/31/2016 08/22/2016 Inactive Singulair 10 mg tablet RxNorm: 539144 TAKE ONE TABLET BY MOUTH JOSÉ Y 07/27/2016 07/18/2017 Inactive hydrocodone 10 mg-acetaminophen 325 mg tablet RxNorm: 276002 1-2 Tablet(s) QID as needed for pain MUST LAST 30 DAYS 07/26/2016 08/24/2016 Inactive (Response to an electronic controlled substance refill request - RxReferenceNumber: [id number]) alprazolam 0.5 mg tablet RxNorm: 348792 3 Tablet(s) PO QHS as needed for anxiety or sleep 07/26/2016 09/20/2016 Inactive clindamycin 300 mg capsule RxNorm: 285012 1 Capsule(s) PO TID 07/2007/29/2016 Inactive Diflucan 100 mg tablet RxNorm: 615041 1 Tablet(s) PO QD 07/20/2016 Inactive Levaquin 500 mg tablet RxNorm: 363760 1 Tablet(s) PO QD 07/17/2016 Inactive Levaquin 500 mg tablet RxNorm: 163659 1 Tablet(s) PO QD 07/10/2016 Inactive Levaquin 500 mg tablet RxNorm: 076277 1 Tablet(s) PO QD 07/10/2016 Inactive mupirocin 2 % topical ointment RxNorm: 971296 TOP Apply topically to affected areas twice daily 07/06/2016 09/18/2016 Inactive Singulair 10 mg tablet RxNorm: 889193 TAKE ONE TABLET BY MOUTH JOSÉ Y 06/21/2016 01/21/2019 Inactive alprazolam 0.5 mg tablet RxNorm: 459573 TAKE THREE TABL ETS BY MOUTH AT BEDTIME NEEDED FOR SLEEP OR STRESS 05/22/2016 06/20/2016 Inactive triamterene 75 mg-hydrochlorothiazide 50 mg tablet RxNorm: 3 83971 1 Tablet(s) PO QD 04/26/2016 10/21/2016 Inactive Premarin 1.25 mg tablet RxNorm: 958233 1-2 Tablet(s) PO QD 04/26/20 16 03/20/2017 Inactive Klor-Con 8 mEq tablet,extended release RxNorm: 157595 1 Tablet( s) PO BID 04/26/2016 10/19/2016 Inactive Celebrex 200 mg capsule RxNorm: 546376 1 Capsule(s) PO BID TAKE ONE CAPSULE BY MOUTH EVERY DAY 04/26/2016 10/19/2016 Inactive Lipitor 10 mg tablet RxNorm: 722735 1 Tablet(s) PO QHS 04/26/201605/2017 Inactive allopurinol 300 mg tablet RxNorm: 582186 1 Tablet(s) PO QD TAKE ONE TABLET BY MOUTH EVERY DAY 04/26/2016 10/19/2016 Inactive amlodipine 5 mg-benazepril 20 mg capsule RxNorm: 943563 1 Capsule(s) PO QHS replaces amlodopine 04/26/2016 10/19/2016 Inactive duloxetine 60 mg capsule,delayed release RxNorm: 041062 1 Capsu le(s) PO QD 04/26/2016 10/19/2016 Inactive Bystolic 10 mg tablet RxNorm: 410416 1 Tablet(s) PO QHS 04/26/2016 Inactive Singulair 10 mg tablet RxNorm: 982036 1 Tablet(s) PO QD TAKE ONE TABLET BY MOUTH DAILY 04/26/2016 06/20/2016 Inactive clonidine HCl 0.1 mg tablet RxNorm: 790068 1 Tablet(s) PO QID 04/2610/22/2016 Inactive hydrocodone 10 mg-acetaminophen 325 mg tablet RxNorm: 779953 1-2 Tablet(s) QID as needed for pain TAKE ONE TO TWO TABLETS BY MOUTH FOUR TIMES A DAY . MUST LAST 30 DAYS 03/31/2016 04/29/2016 Inactive (Response to an electronic controlled substance refill request - RxReferenceNumber: [id number]) Klor-Con 8 mEq tablet,extended release RxNorm: 071726 T FARRUKH ONE TABLET BY MOUTH TWICE A DAY 03/24/2016 04/22/2016 Inactive prednisone 20 mg tablet RxNorm: 215597 1 Tablet(s) PO QD 03/09/2016 0 03/08/2016 Inactive prednisone 20 mg tablet RxNorm: 613152 1 Tablet(s) PO QD 03/09/2016 0 03/13/2016 Inactive alprazolam 0.5 mg tablet RxNorm: 873194 3 Tablet(s) PO QHS as needed for sleep/stress 03/02/2016 01/21/2019 Inactive mupirocin 2 % topical ointment RxNorm: 920784 TOP twice daily to affected areas of face and neck 02/21/2016 04/25/2016 Inactive clonidine HCl 0.1 mg tablet RxNorm: 158840 TAKE ONE TAB LET BY MOUTH FOUR TIMES A DAY 02/15/2016 03/15/2016 Inactive clonidine HCl 0.1 mg tablet RxNorm: 980121 1 Tablet(s) PO QID 02/1404/25/2016 Inactive Premarin 1.25 mg tablet RxNorm: 393456 1-2 Tablet(s) PO QD 02/15/20 16 03/15/2016 Inactive Klor-Con 8 mEq tablet,extended release RxNorm: 725002 T FARRUKH ONE TABLET BY MOUTH TWICE A DAY 02/15/2016 03/15/2016 Inactive potassium chloride ER 20 mEq tablet,extended release(part/cr yst) RxNorm: 243230 2 Tablet(s) PO BID 02/15/2016 03/15/2016 Inactive Macrobid 100 mg capsule RxNorm: 880703 1 Capsule(s) PO BID 01/24/20 16 01/30/2016 Inactive prednisone 20 mg tablet RxNorm: 385925 Take 3tabs PO QD x 2 days, then 2 tabs PO QD x 2 days, then 1 tab PO QD x 2 days, then 1/2 tab PO QDy x 2 days 12/23/2015 04/25/2016 Inactive Klor-Con 8 mEq tablet,extended release RxNorm: 990452 T FARRUKH ONE TABLET BY MOUTH TWICE A DAY 12/20/2015 02/14/2016 Inactive alprazolam 1 mg tablet RxNorm: 206358 1 1/2 Tablet(s) PO QHS 201501/23/2016 Inactive nystatin 100,000 unit/gram topical cream RxNorm: 778571 APPLY TO AFFECTED AREA(S) TWO TIMES A DAY 11/30/2015 12/14/2015 Inactive Singulair 10 mg tablet RxNorm: 363654 TAKE ONE TABLET BY MOUTH JOSÉ Y 11/18/2015 04/25/2016 Inactive allopurinol 300 mg tablet RxNorm: 045931 1 Tablet(s) PO QD TAKE ONE TABLET BY MOUTH EVERY DAY 10/26/2015 04/22/2016 Inactive Singulair 10 mg tablet RxNorm: 902717 TAKE ONE TABLET BY MOUTH JOSÉ Y 10/26/2015 11/17/2015 Inactive duloxetine 60 mg capsule,delayed release RxNorm: 832684 1 Capsu le(s) PO QD 10/26/2015 04/22/2016 Inactive triamterene 75 mg-hydrochlorothiazide 50 mg tablet RxNorm: 3 09912 1 Tablet(s) PO QD 10/26/2015 11/14/2016 Inactive potassium chloride ER 20 mEq tablet,extended release(part/cr yst) RxNorm: 382720 2 Tablet(s) PO BID 10/26/2015 02/14/2016 Inactive Lipitor 10 mg tablet RxNorm: 044707 1 Tablet(s) PO QHS 10/26/2015 Inactive amlodipine 5 mg-benazepril 20 mg capsule RxNorm: 513750 1 Capsule(s) PO QHS replaces amlodopine 10/26/2015 04/22/2016 Inactive Bystolic 10 mg tablet RxNorm: 266209 1 Tablet(s) PO QHS 10/26/2015 Inactive amlodipine 5 mg-benazepril 20 mg capsule RxNorm: 103936 1 Capsule(s) PO QHS replaces amlodopine 10/06/2015 10/25/2015 Inactive amlodipine 5 mg tablet RxNorm: 215474 1 Tablet(s) PO QHS 09/30/2015 0 04/25/2016 Inactive metolazone 2.5 mg tablet RxNorm: 879651 TAKE ONE TABLET BY MOUTH DAILY NEEDED FOR EDEMA 09/30/2015 01/21/2019 Inactive duloxetine 60 mg capsule,delayed release RxNorm: 417542 1 Capsu le(s) PO QD 09/30/2015 10/25/2015 Inactive cephalexin 500 mg capsule RxNorm: 645661 1 Capsule(s) PO BID 201509/23/2015 Inactive mupirocin 2 % topical ointment RxNorm: 444807 TOP twice daily to affected areas of face and neck 09/14/2015 02/20/2016 Inactive baclofen 20 mg tablet RxNorm: 246570 1 Tablet(s) PO TID as needed for muscle spasm 09/01/2015 11/14/2016 Inactive clonidine HCl 0.1 mg tablet RxNorm: 796721 1 Tablet(s) PO QID 09/0102/14/2016 Inactive alprazolam 1 mg tablet RxNorm: 892528 1 1/2 Tablet(s) PO QHS 201409/09/2015 Inactive baclofen 20 mg tablet RxNorm: 888868 1 Tablet(s) PO TID as needed for muscle spasm 07/23/2015 09/01/2015 Inactive omeprazole 40 mg capsule,delayed release RxNorm: 907441 1 Capsu le(s) PO QD 07/23/2015 04/25/2016 Inactive alprazolam 1 mg tablet RxNorm: 934157 1 1/2 Tablet(s) PO QHS 201408/10/2015 Inactive Bystolic 10 mg tablet RxNorm: 590553 1 Tablet(s) PO BID 06/24/2015 Inactive allopurinol 300 mg tablet RxNorm: 121201 1 Tablet(s) PO QD TAKE ONE TABLET BY MOUTH EVERY DAY 06/23/2015 10/20/2015 Inactive alprazolam 1 mg tablet RxNorm: 612338 1 1/2 Tablet(s) PO QHS 201407/06/2015 Inactive clonidine HCl 0.1 mg tablet RxNorm: 644692 1 Tablet(s) PO QID 06/0209/01/2015 Inactive clonidine HCl 0.1 mg tablet RxNorm: 458623 1 Tablet(s) PO QID 06/0206/01/2015 Inactive Cymbalta 60 mg capsule,delayed release RxNorm: 956708 1 Capsule (s) PO QHS 06/02/2015 08/30/2015 Inactive Cymbalta 60 mg capsule,delayed release RxNorm: 904766 1 Capsule (s) PO QHS 06/02/2015 06/01/2015 Inactive clonidine HCl 0.1 mg tablet RxNorm: 037510 1 Tablet(s) PO TID 05/3106/01/2015 Inactive replaces 0.2mg dose metolazone 2.5 mg tablet RxNorm: 810092 TAKE ONE TABLET BY MOUTH DAILY NEEDED FOR EDEMA 05/21/2015 06/19/2015 Inactive Singulair 10 mg tablet RxNorm: 891506 TAKE ONE TABLET BY MOUTH JOSÉ Y 05/21/2015 10/17/2015 Inactive Cymbalta 30 mg capsule,delayed release RxNorm: 761937 1 Capsule (s) PO QHS 05/20/2015 11/14/2016 Inactive betamethasone valerate 0.1 % topical cream RxNorm: 296773 Appli cation TOP BID 05/10/2015 04/25/2016 Inactive Bactroban 2 % topical ointment RxNorm: 599469 Application TOP BID 0 05/10/2015 06/20/2015 Inactive baclofen 20 mg tablet RxNorm: 497290 1 Tablet(s) PO TID as needed 0 04/26/2015 07/23/2015 Inactive Lipitor 10 mg tablet RxNorm: 606604 1 Tablet(s) PO QHS 04/26/201508/2016 Inactive clonidine HCl 0.1 mg tablet RxNorm: 624710 1 Tablet(s) PO TID 04/2605/30/2015 Inactive replaces 0.2mg dose Klor-Con 8 mEq tablet,extended release RxNorm: 946456 1 Tablet( s) PO BID 04/26/2015 04/25/2016 Inactive metolazone 2.5 mg tablet RxNorm: 296702 1 Tablet(s) PO QD as ne eded for edema 04/26/2015 04/25/2015 Inactive triamterene 75 mg-hydrochlorothiazide 50 mg tablet RxNorm: 3 02243 1 Tablet(s) PO QD 04/26/2015 10/22/2015 Inactive Premarin 1.25 mg tablet RxNorm: 210917 1-2 Tablet(s) PO QD 04/26/20 15 10/22/2015 Inactive Bystolic 10 mg tablet RxNorm: 058468 1 Tablet(s) PO QAM TAKE ONE TABLET BY MOUTH EVERY MORNING 04/23/2015 06/23/2015 Inactive clonidine HCl 0.1 mg tablet RxNorm: 669064 1 Tablet(s) PO TID 03/2304/25/2015 Inactive replaces 0.2mg dose nystatin 100,000 unit/gram topical cream RxNorm: 706381 Applica tion TOP BID 03/23/2015 06/20/2015 Inactive baclofen 20 mg tablet RxNorm: 357933 1 Tablet(s) PO TID as needed 0 03/23/2015 04/25/2015 Inactive Premarin 1.25 mg tablet RxNorm: 440565 1-2 Tablet(s) PO QD 03/23/20 15 04/25/2015 Inactive Klor-Con 8 mEq tablet,extended release RxNorm: 486656 1 Tablet( s) PO BID 03/23/2015 04/25/2015 Inactive cefdinir 300 mg capsule RxNorm: 451087 2 Capsule(s) PO QD 03/16/2015 03/25/2015 Inactive baclofen 20 mg tablet RxNorm: 465534 1 Tablet(s) PO TID as needed 0 03/02/2015 03/22/2015 Inactive allopurinol 300 mg tablet RxNorm: 345037 1 Tablet(s) PO QD TAKE ONE TABLET BY MOUTH EVERY DAY 02/22/2015 05/22/2015 Inactive Klor-Con M20 mEq tablet,extended release RxNorm: 960478 2 Tablet(s) PO BID to use with lasix 02/22/2015 06/20/2015 Inactive clonidine HCl 0.1 mg tablet RxNorm: 788877 1 Tablet(s) PO TID 02/1903/22/2015 Inactive replaces 0.2mg dose Lipitor 10 mg tablet RxNorm: 206956 1 Tablet(s) PO QHS 01/20/201506/2015 Inactive Lipitor 10 mg tablet RxNorm: 553473 1 Tablet(s) PO QHS 01/20/2015 Inactive Singulair 10 mg tablet RxNorm: 980076 1 Tablet(s) PO QD TAKE ONE TABLET BY MOUTH EVERY DAY 11/20/2014 05/18/2015 Inactive Lipitor 10 mg tablet RxNorm: 739687 1 Tablet(s) PO QHS 11/20/201408/2015 Inactive allopurinol 300 mg tablet RxNorm: 653057 1 Tablet(s) PO QD TAKE ONE TABLET BY MOUTH EVERY DAY 11/20/2014 02/16/2015 Inactive Bystolic 10 mg tablet RxNorm: 150984 1 Tablet(s) PO QAM TAKE ONE TABLET BY MOUTH EVERY MORNING 11/20/2014 04/22/2015 Inactive Klor-Con 8 mEq tablet,extended release RxNorm: 650753 1 Tablet( s) PO BID 11/20/2014 02/17/2015 Inactive baclofen 20 mg tablet RxNorm: 687645 1 Tablet(s) PO TID as needed 0 11/20/2014 01/21/2019 Inactive baclofen 20 mg tablet RxNorm: 151756 1 Tablet(s) PO TID as needed 0 10/27/2014 11/19/2014 Inactive baclofen 20 mg tablet RxNorm: 652161 1 Tablet(s) PO TID as needed 0 10/26/2014 03/01/2015 Inactive allopurinol 300 mg tablet RxNorm: 628229 1 Tablet(s) PO QD TAKE ONE TABLET BY MOUTH EVERY DAY 10/26/2014 11/20/2014 Inactive Bystolic 10 mg tablet RxNorm: 957325 1 Tablet(s) PO QAM TAKE ONE TABLET BY MOUTH EVERY MORNING 10/26/2014 11/20/2014 Inactive clonidine HCl 0.1 mg tablet RxNorm: 603106 1 Tablet(s) PO TID 09/2805/27/2019 Inactive replaces 0.2mg dose clonidine HCl 0.1 mg tablet RxNorm: 617464 1 Tablet(s) PO TID 09/2802/18/2015 Inactive replaces 0.2mg dose baclofen 20 mg tablet RxNorm: 545134 1 Tablet(s) PO TID as needed 1 11/01/2013 08/30/2014 Inactive Lipitor 10 mg tablet RxNorm: 539650 1 Tablet(s) PO QHS 08/31/2014 Inactive baclofen 20 mg tablet RxNorm: 862966 1 Tablet(s) PO TID as needed 1 11/01/2013 10/26/2014 Inactive triamterene 75 mg-hydrochlorothiazide 50 mg tablet RxNorm: 3 71160 1 Tablet(s) PO QD 08/31/2014 02/26/2015 Inactive Klor-Con 8 mEq tablet,extended release RxNorm: 073446 1 Tablet( s) PO BID 08/31/2014 11/20/2014 Inactive baclofen 20 mg tablet RxNorm: 348814 1 Tablet(s) PO TID as needed 1 09/30/2013 10/25/2014 Inactive baclofen 20 mg tablet RxNorm: 826929 1 Tablet(s) PO TID as needed 1 09/30/2013 08/31/2014 Inactive omeprazole 40 mg capsule,delayed release RxNorm: 911732 1 Capsu le(s) PO QD 07/21/2014 07/23/2015 Inactive Flonase 50 mcg/actuation nasal spray,suspension RxNorm: 8963 23 1 [place] NASAL BID 07/15/2014 04/09/2017 Inactive hydrocodone 10 mg-acetaminophen 325 mg tablet RxNorm: 398855 1-2 Tablet(s) QID as needed for pain TAKE ONE TO TWO TABLETS BY MOUTH FOUR TIMES A DAY . MUST LAST 30 DAYS 06/30/2014 07/27/2014 Inactive (Response to an electronic controlled substance refill request - RxReferenceNumber: [id number]) baclofen 20 mg tablet RxNorm: 459817 1 Tablet(s) PO TID as needed 1 07/31/2014 Inactive Singulair 10 mg tablet RxNorm: 627004 1 Tablet(s) PO QD TAKE ONE TABLET BY MOUTH EVERY DAY 05/25/2014 11/20/2014 Inactive Bystolic 10 mg tablet RxNorm: 241288 TAKE ONE TABLET BY MOUTH E VERY MORNING 05/25/2014 09/21/2014 Inactive allopurinol 300 mg tablet RxNorm: 285125 1 Tablet(s) PO QD TAKE ONE TABLET BY MOUTH EVERY DAY 05/25/2014 10/21/2014 Inactive baclofen 20 mg tablet RxNorm: 821568 1 Tablet(s) PO TID as needed 0 05/25/2014 06/29/2014 Inactive allopurinol 300 mg tablet RxNorm: 628823 TAKE ONE TABLET BY LOPEZ TH EVERY DAY 05/25/2014 09/21/2014 Inactive Singulair 10 mg tablet RxNorm: 228762 1 Tablet(s) PO QD TAKE ONE TABLET BY MOUTH EVERY DAY 05/25/2014 05/24/2014 Inactive Bystolic 10 mg tablet RxNorm: 310168 1 Tablet(s) PO QAM TAKE ONE TABLET BY MOUTH EVERY MORNING 05/25/2014 10/21/2014 Inactive metolazone 2.5 mg tablet RxNorm: 560472 1 Tablet(s) PO QD as ne eded for edema 05/18/2014 04/25/2015 Inactive Lasix 40 mg tablet RxNorm: 453301 1 Tablet(s) PO QAM s hould take potassium supplementation with this medication 05/14/2014 05/17/2014 Inactive hydrocodone 10 mg-acetaminophen 325 mg tablet RxNorm: 021578 1-2 Tablet(s) QID as needed for pain TAKE ONE TO TWO TABLETS BY MOUTH FOUR TIMES A DAY . MUST LAST 30 DAYS 05/07/2014 06/05/2014 Inactive (Response to an electronic controlled substance refill request - RxReferenceNumber: [id number]) alprazolam 0.5 mg tablet RxNorm: 525454 TAKE ONE TABLET BY MOUTH TWICE A DAY , MUST LAST 30 DAYS 05/07/2014 05/22/2016 Inactive (Response to a n electronic controlled substance refill request - RxReferenceNumber: [id number]) diclofenac sodium 75 mg tablet,delayed release RxNorm: 91927 6 1 Tablet(s) PO BID for pain 04/24/2014 07/20/2014 Inactive Celebrex 200 mg capsule RxNorm: 946468 TAKE ONE CAPSULE BY MOUT H EVERY DAY 04/24/2014 07/20/2014 Inactive alprazolam 0.5 mg tablet RxNorm: 126201 TAKE ONE TABLET BY MOUTH TWICE A DAY , MUST LAST 30 DAYS 03/24/2014 04/22/2014 Inactive (Response to a n electronic controlled substance refill request - RxReferenceNumber: [id number]) diclofenac sodium 75 mg tablet,delayed release RxNorm: 45765 6 1 Tablet(s) PO BID for pain 03/24/2014 04/24/2014 Inactive clonidine HCl 0.1 mg tablet RxNorm: 744621 1 Tablet(s) PO TID 03/2409/28/2014 Inactive replaces 0.2mg dose Klor-Con 8 mEq tablet,extended release RxNorm: 460231 1 Tablet( s) PO BID 02/26/2014 08/31/2014 Inactive diclofenac sodium 75 mg tablet,delayed release RxNorm: 76653 6 1 Tablet(s) PO BID for pain 02/25/2014 03/24/2014 Inactive hydrocodone 10 mg-acetaminophen 325 mg tablet RxNorm: 806033 1-2 Tablet(s) QID as needed for pain TAKE ONE TO TWO TABLETS BY MOUTH FOUR TIMES A DAY . MUST LAST 30 DAYS 02/25/2014 03/26/2014 Inactive (Response to an electronic controlled substance refill request - RxReferenceNumber: [id number]) alprazolam 0.5 mg tablet RxNorm: 369553 Tablet(s) PO BI D as needed for anxiety TAKE ONE TABLET BY MOUTH TWICE A DAY , MUST LAST 30 DAYS 02/25/2014 Inactive (Response to an electronic controlled [place] bstance refill request - RxReferenceNumber: [id number]) [AttnRPh: Saving apply/adjudicate RxGRP:SG20 RxBIN:[id number] RxPCN: ID#:[id number]] alprazolam 0.5 mg tablet RxNorm: 836408 Tablet(s) TAKE ONE TABLET BY MOUTH TWICE A DAY , MUST LAST 30 DAYS 01/27/2014 02/24/2014 Inactive (Respo nse to an electronic controlled substance refill request - RxReferenceNumber: [id number]) [AttnRPh: Saving apply/adjudicate RxGRP:SG20 RxBIN:[id number] RxPCN: ID#:[id number]] hydrocodone 10 mg-acetaminophen 325 mg tablet RxNorm: 095440 1-2 Tablet(s) QID as needed for pain TAKE ONE TO TWO TABLETS BY MOUTH FOUR TIMES A DAY . MUST LAST 30 DAYS 01/27/2014 02/24/2014 Inactive (Response to an electronic controlled substance refill request - RxReferenceNumber: [id number]) alprazolam 0.5 mg tablet RxNorm: 344460 TAKE ONE TABLET BY MOUTH TWICE A DAY , MUST LAST 30 DAYS 01/27/2014 01/26/2014 Inactive (Response to a n electronic controlled substance refill request - RxReferenceNumber: [id number]) Premarin 1.25 mg tablet RxNorm: 968079 1-2 Tablet(s) PO QD 01/28/20 14 07/25/2014 Inactive alprazolam 0.5 mg tablet RxNorm: 198974 TAKE ONE TABLET BY MOUTH TWICE A DAY , MUST LAST 30 DAYS 01/27/2014 01/27/2014 Inactive (Response to a n electronic controlled substance refill request - RxReferenceNumber: [id number]) hydrocodone 10 mg-acetaminophen 325 mg tablet RxNorm: 185875 TAKE ONE TO TWO TABLETS BY MOUTH FOUR TIMES A DAY . MUST LAST 30 DAYS 01/27/20142013 Inactive (Response to an electronic controlled [place] bstance refill request - RxReferenceNumber: [id number]) Celebrex 200 mg capsule RxNorm: 568299 1 Capsule(s) PO QD TAKE ONE CAPSULE BY MOUTH EVERY DAY 12/29/2013 04/27/2014 Inactive hydrocodone 10 mg-acetaminophen 325 mg tablet RxNorm: 831687 1-2 Tablet(s) PO QID as needed for severe pain 12/29/2013 01/27/2014 Inactive allopurinol 300 mg tablet RxNorm: 844345 1 Tablet(s) PO QD TAKE ONE TABLET BY MOUTH EVERY DAY 12/29/2013 05/24/2014 Inactive alprazolam 0.5 mg tablet RxNorm: 002323 TAKE ONE TABLET BY MOUTH TWICE A DAY , MUST LAST 30 DAYS 12/29/2013 01/27/2014 Inactive (Response to a n electronic controlled substance refill request - RxReferenceNumber: [id number]) Celebrex 200 mg capsule RxNorm: 757448 1 Capsule(s) PO QD TAKE ONE CAPSULE BY MOUTH EVERY DAY 12/29/2013 12/29/2013 Inactive Bystolic 10 mg tablet RxNorm: 728740 1 Tablet(s) PO QAM TAKE ONE TABLET BY MOUTH EVERY MORNING 12/29/2013 05/24/2014 Inactive Bystolic 10 mg tablet RxNorm: 661007 1 Tablet(s) PO QAM TAKE ONE TABLET BY MOUTH EVERY MORNING 12/29/2013 12/29/2013 Inactive Singulair 10 mg tablet RxNorm: 918519 1 Tablet(s) PO QD TAKE ONE TABLET BY MOUTH EVERY DAY 12/29/2013 05/25/2014 Inactive hydrocodone 10 mg-acetaminophen 325 mg tablet RxNorm: 462293 TAKE ONE TO TWO TABLETS BY MOUTH FOUR TIMES A DAY . MUST LAST 30 DAYS 12/29/20132013 Inactive (Response to an electronic controlled [place] bstance refill request - RxReferenceNumber: [id number]) Trazadone 75mg Tablet RxNorm: 1 Tablet(s) PO QHS as needed 03/23/2014 Inactive Trazadone 75mg Tablet RxNorm: 1 Tablet(s) PO QHS 12/24/20132014 Inactive Soma 350 mg tablet RxNorm: 049865 Tablet(s) PO TAKE ON E TABLET BY MOUTH THREE TIMES A DAY NEEDED FOR MUSCLE SPASMS. THIS MUST LAST 30 DAYS BETWEEN REFILLS. 12/10/2013 12/22/2013 Inactive (Appended: Cont rolled substance eRx refill - RxReferenceNumber: [id number]) diclofenac sodium 75 mg tablet,delayed release RxNorm: 05532 6 1 Tablet(s) PO BID for pain 12/10/2013 02/24/2014 Inactive allopurinol 300 mg tablet RxNorm: 004426 1 Tablet(s) PO QD 11/20/19 14 12/29/2013 Inactive alprazolam 0.5 mg tablet RxNorm: 451754 2 Tablet(s) PO BID 11/13/19 14 12/29/2013 Inactive prn clonidine 0.1 mg tablet RxNorm: 265960 1 Tablet(s) PO TID 11/12/2013 02/09/2014 Inactive replaces 0.2mg dose Klor-Con M20 mEq tablet,extended release RxNorm: 956023 2 Tablet(s) PO BID to use with lasix 11/12/2013 05/10/2014 Inactive Singulair 10 mg tablet RxNorm: 479130 1 Tablet(s) PO QD 11/12/2013 Inactive hydrocodone 10 mg-acetaminophen 325 mg tablet RxNorm: 518203 1-2 Tablet(s) PO QID as needed for severe pain 11/12/2013 12/28/2013 Inactive Bystolic 10 mg tablet RxNorm: 498665 1 Tablet(s) PO QAM 11/12/2013 Inactive Soma 350 mg tablet RxNorm: 302509 Tablet(s) PO TAKE ON E TABLET BY MOUTH THREE TIMES A DAY NEEDED FOR MUSCLE SPASMS. THIS MUST LAST 30 DAYS BETWEEN REFILLS. 10/13/2013 12/10/2013 Inactive (Appended: Cont rolled substance eRx refill - RxReferenceNumber: [id number]) hydrocodone 10 mg-acetaminophen 325 mg tablet RxNorm: 503645 1-2 Tablet(s) PO QID as needed for severe pain 10/03/2013 11/11/2013 Inactive diclofenac sodium 75 mg tablet,delayed release RxNorm: 97589 8 1 Tablet(s) PO BID for pain 09/11/2013 12/10/2013 Inactive alprazolam 0.5 mg tablet RxNorm: 440695 1 Tablet(s) PO BID May refill on 04/26/13 09/01/2013 10/30/2013 Inactive prn hydrocodone 10 mg-acetaminophen 325 mg tablet RxNorm: 303341 1-2 Tablet(s) PO QID as needed for severe pain 09/01/2013 10/02/2013 Inactive triamterene 75 mg-hydrochlorothiazide 50 mg tablet RxNorm: 3 05822 1 Tablet(s) PO QD 08/04/2013 08/31/2014 Inactive cyclobenzaprine 10 mg tablet RxNorm: 270456 1 Tablet(s) PO TID prn spasm 08/04/2013 08/13/2013 Inactive clonidine 0.1 mg tablet RxNorm: 233821 1 Tablet(s) PO TID 08/04/2013 11/11/2013 Inactive replaces 0.2mg dose cyclobenzaprine 10 mg tablet RxNorm: 232174 1 Tablet(s) PO TID prn spasm 07/23/2013 08/01/2013 Inactive hydrocodone 10 mg-acetaminophen 325 mg tablet RxNorm: 349197 2 1-2 Tablet(s) PO QID as needed for severe pain 06/09/2013 08/07/2013 Inactive Singulair 10 mg tablet RxNorm: 255917 1 Tablet(s) PO QD 05/29/2013 Inactive Klor-Con 8 mEq tablet,extended release RxNorm: 409001 1 Tablet( s) PO BID 05/29/2013 02/26/2014 Inactive allopurinol 300 mg tablet RxNorm: 616715 1 Tablet(s) PO QD 05/29/20 13 11/19/2013 Inactive Bystolic 10 mg tablet RxNorm: 247043 1 Tablet(s) PO QAM take one daily in the morning. 05/29/2013 11/11/2013 Inactive scopolamine 1.5 mg 72 hr Transderm Patch RxNorm: 097650 Application TD Q72H for motion sickness 05/26/2013 07/22/2013 Inactive Soma 350 mg tablet RxNorm: 584051 1 Tablet(s) PO TID as needed for spasm 05/19/2013 10/13/2013 Inactive diclofenac sodium 75 mg tablet,delayed release RxNorm: 99311 8 1 Tablet(s) PO BID for pain 05/14/2013 07/22/2013 Inactive allopurinol 300 mg tablet RxNorm: 344353 1 Tablet(s) PO QD 04/25/20 13 05/28/2013 Inactive alprazolam 0.5 mg tablet RxNorm: 918439 1 Tablet(s) PO BID May refill on 04/26/13 04/25/2013 06/23/2013 Inactive prn Celebrex 200 mg capsule RxNorm: 935955 1 Capsule(s) PO QD 04/16/2013 12/29/2013 Inactive alprazolam 0.5 mg tablet RxNorm: 494577 1 Tablet(s) PO BID May refill on 04/26/13 04/16/2013 04/24/2013 Inactive prn Soma 350 mg tablet RxNorm: 458581 1 Tablet(s) PO TID as needed for spasm 04/16/2013 No Stop Date Active Lasix 40 mg tablet RxNorm: 162373 1 Tablet(s) PO QAM s hould take potassium supplementation with this medication 04/16/2013 06/14/2013 Inactive clonidine 0.1 mg tablet RxNorm: 497362 1 Tablet(s) PO TID 04/16/2013 08/03/2013 Inactive replaces 0.2mg dose prednisone 20 mg tablet RxNorm: 492174 1 Tablet(s) PO BID 04/16/2013 04/20/2013 Inactive diclofenac sodium 75 mg tablet,delayed release RxNorm: 22810 8 1 Tablet(s) PO BID for pain 04/14/2013 05/13/2013 Inactive hydrocodone 10 mg-acetaminophen 325 mg tablet RxNorm: 394576 2 1-2 Tablet(s) PO QID as needed for severe pain 04/14/2013 No Stop Date Active Lasix 40 mg tablet RxNorm: 511157 1 Tablet(s) PO QAM s hould take potassium supplementation with this medication 03/31/2013 04/15/2013 Inactive Celebrex 200 mg capsule RxNorm: 122883 1 Capsule(s) PO QD 03/31/2013 04/15/2013 Inactive alprazolam 0.5 mg tablet RxNorm: 446843 1 Tablet(s) PO BID 03/28/20 13 04/15/2013 Inactive prn hydrocodone 10 mg-acetaminophen 325 mg tablet RxNorm: 287495 2 1-2 Tablet(s) PO QID as needed for severe pain 03/10/2013 No Stop Date Active metformin ER 500 mg 24 hr tablet,extended release RxNorm: 86 1018 1 Tablet(s) PO QD 03/06/2013 07/22/2013 Inactive clindamycin 300 mg capsule RxNorm: 774601 2 Capsule(s) PO TID 03/0503/14/2013 Inactive Zaroxolyn 2.5 mg tablet RxNorm: 000206 1 Tablet(s) PO QAM 03/05/2013 05/19/2015 Inactive amlodipine 10 mg tablet RxNorm: 931176 1 Tablet(s) PO QD 03/03/2013 0 05/25/2013 Inactive Norvasc 10 mg tablet RxNorm: 971539 1 Tablet(s) PO QD 02/28/201307/11 Inactive Celebrex 200 mg capsule RxNorm: 076977 1 Capsule(s) PO QD 02/28/2013 03/30/2013 Inactive diclofenac sodium 75 mg tablet,delayed release RxNorm: 56379 8 1 Tablet(s) PO BID for pain 02/14/2013 03/15/2013 Inactive Soma 350 mg tablet RxNorm: 180855 1 Tablet(s) PO TID as needed for spasm 02/14/2013 No Stop Date Active hydrocodone 10 mg-acetaminophen 325 mg tablet RxNorm: 873485 2 1-2 Tablet(s) PO QID as needed for severe pain 02/14/2013 No Stop Date Active Norvasc 10 mg tablet RxNorm: 736939 1 Tablet(s) PO QD 02/10/201302/09 Inactive Celebrex 200 mg capsule RxNorm: 699441 1 Capsule(s) PO QD 01/27/2013 01/26/2013 Inactive Premarin 1.25 mg tablet RxNorm: 706005 1-2 Tablet(s) PO QD 01/28/20 13 06/25/2013 Inactive alprazolam 0.5 mg tablet RxNorm: 543461 1 Tablet(s) PO BID 01/28/20 13 02/25/2013 Inactive prn amlodipine 5 mg tablet RxNorm: 680345 1 Tablet(s) PO QD 01/27/2013 Inactive Celebrex 200 mg capsule RxNorm: 031844 1 Capsule(s) PO QD 01/27/2013 02/27/2013 Inactive gabapentin 600 mg tablet RxNorm: 367215 1 Tablet(s) PO QHS 01/16/20 13 07/22/2013 Inactive Soma 350 mg tablet RxNorm: 276140 1 Tablet(s) PO TID as needed for spasm 01/15/2013 No Stop Date Active hydrocodone 10 mg-acetaminophen 325 mg tablet RxNorm: 237668 2 1-2 Tablet(s) PO QID as needed for severe pain 01/15/2013 No Stop Date Active Soma 350 mg tablet RxNorm: 072837 1 Tablet(s) PO TID as needed for spasm 01/13/2013 No Stop Date Active alprazolam 0.5 mg tablet RxNorm: 816163 1 Tablet(s) PO BID 12/31/19 13 01/26/2013 Inactive prn diclofenac sodium 75 mg tablet,delayed release RxNorm: 25476 8 1 Tablet(s) PO BID for pain 12/09/2012 01/07/2013 Inactive gabapentin 600 mg tablet RxNorm: 705457 1 Tablet(s) PO QHS 12/10/19 13 01/07/2013 Inactive hydrocodone 10 mg-acetaminophen 325 mg tablet RxNorm: 063018 2 1-2 Tablet(s) PO QID as needed for severe pain 12/02/2012 No Stop Date Active Levaquin 750 mg tablet RxNorm: 694154 1 Tablet(s) PO QD 11/21/2012 Inactive Singulair 10 mg tablet RxNorm: 450554 1 Tablet(s) PO QD 11/11/2012 Inactive clonidine 0.2 mg tablet RxNorm: 576223 1 Tablet(s) PO TID 11/11/2012 04/15/2013 Inactive alprazolam 0.5 mg tablet RxNorm: 516032 1 Tablet(s) PO BID 11/12/19 13 12/10/2012 Inactive prn Klor-Con 8 mEq tablet,extended release RxNorm: 132529 1 Tablet( s) PO BID 11/11/2012 03/04/2013 Inactive hydrocodone 10 mg-acetaminophen 325 mg tablet RxNorm: 019604 2 1-2 Tablet(s) PO QID as needed for severe pain 11/06/2012 No Stop Date Active alprazolam 0.5 mg tablet RxNorm: 065482 1 Tablet(s) PO BID 10/15/19 13 11/10/2012 Inactive prn hydrocodone-acetaminophen 10 mg-325 mg tablet RxNorm: 387749 2 1-2 Tablet(s) PO QID as needed for severe pain 10/10/2012 10/09/2012 Inactive allopurinol 300 mg tablet RxNorm: 301916 1 Tablet(s) PO QD 09/20/19 13 12/18/2012 Inactive alprazolam 0.5 mg tablet RxNorm: 620139 1 Tablet(s) PO BID 09/17/19 13 10/14/2012 Inactive prn hydrocodone-acetaminophen 10 mg-325 mg tablet RxNorm: 033474 2 1-2 Tablet(s) PO QID as needed for severe pain 08/22/2012 08/21/2012 Inactive Norvasc 10 mg tablet RxNorm: 705434 1 Tablet(s) PO QD 08/12/201201/10 Inactive Premarin 1.25 mg tablet RxNorm: 102364 1-2 Tablet(s) PO QD 07/30/20 12 12/26/2012 Inactive alprazolam 0.5 mg tablet RxNorm: 751730 1 Tablet(s) PO BID 07/29/20 12 08/27/2012 Inactive prn Klor-Con 8 mEq tablet,extended release RxNorm: 942561 1 Tablet( s) PO BID 07/29/2012 11/10/2012 Inactive hydrocodone-acetaminophen 10 mg-325 mg tablet RxNorm: 319393 2 1-2 Tablet(s) PO QID as needed for severe pain 07/29/2012 No Stop Date Active Premarin 1.25 mg tablet RxNorm: 026891 1-2 Tablet(s) PO QD 07/29/2007/29/2012 Inactive clonidine 0.2 mg tablet RxNorm: 672504 1 Tablet(s) PO TID 07/29/2012 10/28/2012 Inactive ketorolac 10 mg tablet RxNorm: 946997 1 Tablet(s) PO QID prn mitul joseph 07/18/2012 No Stop Date Active hydrocodone-acetaminophen 10 mg-325 mg tablet RxNorm: 183822 2 1-2 Tablet(s) PO QID as needed for severe pain 07/03/2012 No Stop Date Active amlodipine 5 mg tablet RxNorm: 607667 1 Tablet(s) PO QD 07/02/2012 Inactive allopurinol 300 mg tablet RxNorm: 799589 1 Tablet(s) PO QD 07/02/20 12 09/19/2012 Inactive Celebrex 200 mg capsule RxNorm: 336042 1 Capsule(s) PO QD for j oint pain 06/26/2012 10/23/2012 Inactive diclofenac sodium 75 mg tablet,delayed release RxNorm: 50128 8 1 Tablet(s) PO BID for pain 06/19/2012 09/16/2012 Inactive hydrocodone-acetaminophen 10 mg-325 mg tablet RxNorm: 291276 2 1-2 Tablet(s) PO QID as needed for severe pain 06/10/2012 No Stop Date Active alprazolam 0.5 mg tablet RxNorm: 016636 1 Tablet(s) PO BID 06/03/20 12 07/02/2012 Inactive prn ketorolac 10 mg tablet RxNorm: 014733 1 Tablet(s) PO Q8H 05/27/2012 0 01/21/2019 Inactive as needed for headache hydrocodone-acetaminophen 10 mg-325 mg tablet RxNorm: 278081 2 1-2 Tablet(s) PO QID as needed for severe pain 05/15/2012 No Stop Date Active allopurinol 300 mg tablet RxNorm: 168890 1 Tablet(s) PO QD 05/14/20 12 06/12/2012 Inactive allopurinol 300 mg tablet RxNorm: 034275 1 Tablet(s) PO QD 05/14/20 12 05/13/2012 Inactive amlodipine 5 mg tablet RxNorm: 703384 1 Tablet(s) PO QD 05/01/2012 Inactive amlodipine 5 mg Tab RxNorm: 360205 1 Tablet(s) PO QD 05/01/201204/30 Inactive Celebrex 200 mg capsule RxNorm: 403424 1 Capsule(s) PO QD for j oint pain 05/01/2012 06/25/2012 Inactive Singulair 10 mg tablet RxNorm: 600208 1 Tablet(s) PO QD 05/01/2012 Inactive alprazolam 0.5 mg tablet RxNorm: 138592 1 Tablet(s) PO BID 05/01/20 12 05/30/2012 Inactive prn Celebrex 200 mg Cap RxNorm: 029256 1 Capsule(s) PO QD for joint radu n 05/01/2012 04/30/2012 Inactive hydrocodone-acetaminophen 10 mg-325 mg tablet RxNorm: 400200 2 1-2 Tablet(s) PO QID as needed for severe pain 04/19/2012 No Stop Date Active Lasix 40 mg tablet RxNorm: 869915 1 Tablet(s) PO QAM s hould take potassium supplementation with this medication 04/05/2012 06/03/2012 Inactive alprazolam 0.5 mg Tab RxNorm: 832731 1 Tablet(s) PO BID 04/05/2012 Inactive prn hydrocodone-acetaminophen 10 mg-325 mg Tab RxNorm: 6174975 1-2 Tablet(s) PO QID as needed for severe pain 03/25/2012 03/24/2012 Inactive clonidine 0.2 mg Tab RxNorm: 856424 1 Tablet(s) PO TID 03/08/2012 Inactive alprazolam 0.5 mg Tab RxNorm: 376280 1 Tablet(s) PO BID 03/08/2012 Inactive prn Soma 350 mg tablet RxNorm: 399104 1 Tablet(s) PO TID for spasm 02/0903/18/2012 Inactive clonidine 0.2 mg tablet RxNorm: 493583 1 Tablet(s) PO TID 03/08/2012 07/28/2012 Inactive Celebrex 200 mg Cap RxNorm: 855375 1 Capsule(s) PO QD for joint radu n 03/01/2012 04/29/2012 Inactive amlodipine 5 mg Tab RxNorm: 788571 1 Tablet(s) PO QD 02/26/201202/24 Inactive amlodipine 5 mg Tab RxNorm: 250897 1 Tablet(s) PO QD 02/26/201204/25 Inactive Bactroban 2 % Ointment RxNorm: 317208 Application TOP QID to sores 02/23/2012 No Stop Date Active amlodipine 2.5 mg tablet RxNorm: 128069 1 Tablet(s) PO QHS 02/20/20 12 02/25/2012 Inactive doxycycline hyclate 100 mg Cap RxNorm: 6229730 1 Capsule(s) PO BID 02/20/2012 02/29/2012 Inactive hydrocodone-acetaminophen 10 mg-325 mg Tab RxNorm: 4545364 1-2 T ablet(s) PO QID 02/08/2012 No Stop Date Active alprazolam 0.5 mg Tab RxNorm: 304923 1 Tablet(s) PO BID 02/08/2012 Inactive prn Singulair 10 mg Tab RxNorm: 987444 1 Tablet(s) PO QD 02/08/201204/30 Inactive Soma 350 mg Tab RxNorm: 408560 1 Tablet(s) PO TID for spasm 012 03/07/2012 Inactive Soma 350 mg Tab RxNorm: 726092 1 Tablet(s) PO TID for spasm 012 02/05/2012 Inactive diclofenac sodium 75 mg tablet,delayed release RxNorm: 84757 8 1 Tablet(s) PO BID for pain 02/01/2012 03/18/2012 Inactive Celebrex 200 mg Cap RxNorm: 625900 1 Capsule(s) PO QD for joint radu n 01/30/2012 02/28/2012 Inactive Lasix 40 mg Tab RxNorm: 801491 1 Tablet(s) PO QAM 01/24/2012 03/18/20 12 Inactive potassium chloride ER 20 mEq tablet,extended release(part/cr yst) RxNorm: 680650 2 Tablet(s) PO BID 01/24/2012 02/22/2012 Inactive alprazolam 0.5 mg Tab RxNorm: 091154 1 Tablet(s) PO BID 01/11/2012 Inactive prn hydrocodone-acetaminophen 10 mg-325 mg Tab RxNorm: 9591369 1-2 T ablet(s) PO QID 01/11/2012 No Stop Date Active Ambien 10 mg Tab RxNorm: 939070 1 Tablet(s) PO QHS 01/11/2012 012 Inactive Klor-Con 8 mEq Tab RxNorm: 999379 1 Tablet(s) PO BID 01/11/201201/22 Inactive diclofenac sodium 75 mg Tab, Delayed Release RxNorm: 046301 1 Tablet(s) PO BID for pain 01/10/2012 01/31/2012 Inactive Ambien 10 mg Tab RxNorm: 876173 1 Tablet(s) PO QHS 12/11/2011 012 Inactive alprazolam 0.5 mg Tab RxNorm: 921048 1 Tablet(s) PO BID 12/11/2011 Inactive prn hydrocodone 10 mg-acetaminophen 325 mg tablet RxNorm: 755198 1-2 Tablet(s) PO TID 11/28/2011 No Stop Date Active as needed for pa in - Previous quantity #240, will start dosing for #180 in April 2011 per Doctor Appiah. Ambien 10 mg Tab RxNorm: 007427 1 Tablet(s) PO QHS 11/09/2011 012 Inactive alprazolam 0.5 mg Tab RxNorm: 219700 1 Tablet(s) PO BID 11/09/2011 Inactive prn hydrocodone-acetaminophen 10 mg-325 mg Tab RxNorm: 0280677 1-2 T ablet(s) PO TID 11/06/2011 No Stop Date Active as needed for pain - Previous quantity #240, will start dosing for #180 in April 2011 per Doctor Td. Singulair 10 mg Tab RxNorm: 400598 1 Tablet(s) PO QD 10/13/201110/12 Inactive Singulair 10 mg Tab RxNorm: 905646 1 Tablet(s) PO QD 10/13/201102/06 Inactive hydrocodone-acetaminophen 10 mg-325 mg Tab RxNorm: 9443182 1-2 T ablet(s) PO TID 10/10/2011 10/09/2011 Inactive as needed for pain - Previous quantity #240, will start dosing for #180 in April 2011 per Doctor Td. hydrocodone-acetaminophen 10 mg-325 mg Tab RxNorm: 2355573 1-2 T ablet(s) PO TID 10/09/2011 No Stop Date Active as needed for pain - Previous quantity #240, will start dosing for #180 in April 2011 per Doctor Td. Klor-Con 8 mEq Tab RxNorm: 258332 1 Tablet(s) PO BID 10/02/201101/09 Inactive triamterene 75 mg-hydrochlorothiazide 50 mg tablet RxNorm: 3 18389 1 Tablet(s) PO QD 09/14/2011 03/06/2013 Inactive Ambien 10 mg Tab RxNorm: 849668 1 Tablet(s) PO QHS 09/14/2011 012 Inactive hydrocodone-acetaminophen 10 mg-325 mg Tab RxNorm: 7732545 1-2 T ablet(s) PO TID 09/14/2011 No Stop Date Active as needed for pain - Previous quantity #240, will start dosing for #180 in April 2011 per Doctor Td. alprazolam 0.5 mg Tab RxNorm: 814291 1 Tablet(s) PO BID 09/14/2011 Inactive prn Zithromax 500 mg Tab RxNorm: 5723520 1 Tablet(s) PO QD 09/13/201106/2012 Inactive prednisone 20 mg Tab RxNorm: 161346 1 Tablet(s) PO BID 08/31/2011 Inactive Ambien 10 mg Tab RxNorm: 187975 1 Tablet(s) PO QHS 08/17/2011 011 Inactive hydrocodone-acetaminophen 10 mg-325 mg Tab RxNorm: 6888567 1-2 T ablet(s) PO TID 08/17/2011 No Stop Date Active as needed for pain - Previous quantity #240, will start dosing for #180 in April 2011 per Doctor Td. clonidine 0.2 mg Tab RxNorm: 514802 1 Tablet(s) PO TID 08/17/201112/2011 Inactive Ambien 10 mg Tab RxNorm: 207206 1 Tablet(s) PO QHS 08/17/2011 019 Inactive alprazolam 0.5 mg Tab RxNorm: 319743 1 Tablet(s) PO BID 08/17/2011 Inactive prn hydrocodone-acetaminophen 10 mg-325 mg Tab RxNorm: 9359607 1-2 T ablet(s) PO TID 08/17/2011 08/16/2011 Inactive as needed for pain - Previous quantity #240, will start dosing for #180 in April 2011 per Doctor Td. Singulair 10 mg Tab RxNorm: 629411 1 Tablet(s) PO QD 08/17/201108/16 Inactive Klor-Con 8 mEq Tab RxNorm: 090990 1 Tablet(s) PO QD 08/17/20112011 Inactive alprazolam 0.5 mg Tab RxNorm: 419657 1 Tablet(s) PO BID 07/20/2011 Inactive prn Ambien 10 mg Tab RxNorm: 909008 1 Tablet(s) PO QHS 07/20/2011 012 Inactive Singulair 10 mg Tab RxNorm: 756358 1 Tablet(s) PO QD 07/20/201107/19 Inactive Premarin 1.25 mg tablet RxNorm: 682424 2 Tablet(s) PO QD 07/20/2011 0 01/21/2019 Inactive Premarin 1.25 mg tablet RxNorm: 775782 1-2 Tablet(s) PO QD 07/20/20 11 12/16/2011 Inactive Premarin 1.25 mg Tab RxNorm: 804178 1-2 Tablet(s) PO QD 07/06/2011 Inactive alprazolam 0.5 mg Tab RxNorm: 754958 1 Tablet(s) PO BID 06/22/2011 Inactive prn alprazolam 0.5 mg Tab RxNorm: 490628 1 Tablet(s) PO BID 06/22/2011 Inactive prn Premarin 1.25 mg Tab RxNorm: 914511 1 Tablet(s) PO QD m ay do 90 day fill if desired 06/22/2011 07/05/2011 Inactive hydrocodone-acetaminophen 10 mg-325 mg Tab RxNorm: 8135132 1-2 T ablet(s) PO TID 06/22/2011 No Stop Date Active as needed for pain - Previous quantity #240, will start dosing for #180 in April 2011 per Doctor Td. clonidine 0.2 mg Tab RxNorm: 300985 1 Tablet(s) PO TID 05/25/201103/2011 Inactive triamterene-hydrochlorothiazide 75 mg-50 mg Tab RxNorm: 3108 18 1 Tablet(s) PO QD 05/25/2011 09/13/2011 Inactive alprazolam 0.5 mg Tab RxNorm: 608824 1 Tablet(s) PO BID 05/25/2011 Inactive prn hydrocodone-acetaminophen 10 mg-325 mg Tab RxNorm: 9559654 1-2 T ablet(s) PO TID 05/25/2011 No Stop Date Active as needed for pain - Previous quantity #240, will start dosing for #180 in April 2011 per Doctor Td. Robaxin-750 750 mg Tab RxNorm: 016027 2 Tablet(s) PO QHS 05/22/2011 1 Inactive prn spasm hydrocodone-acetaminophen 10 mg-325 mg Tab RxNorm: 1997379 1-2 T ablet(s) PO TID 04/26/2011 No Stop Date Active as needed for pain - Previous quantity #240, will start dosing for #180 in April 2011 per Doctor Td. alprazolam 0.5 mg Tab RxNorm: 764061 1 Tablet(s) PO BID 04/25/2011 Inactive prn Klor-Con 8 mEq Tab RxNorm: 206851 1 Tablet(s) PO QD 03/30/20112010 Inactive Klor-Con 8 mEq Tab RxNorm: 812151 1 Tablet(s) PO QD 03/29/20112010 Inactive hydrocodone-acetaminophen 10 mg-325 mg Tab RxNorm: 4046358 1-2 T ablet(s) PO TID 03/20/2011 04/25/2011 Inactive as needed for pain - Previous quantity #240, will start dosing for #180 in April 2011 per Doctor Td. alprazolam 0.5 mg Tab RxNorm: 177753 1 Tablet(s) PO BID prn 011 03/30/2011 Inactive Ambien 10 mg Tab RxNorm: 261949 1 Tablet(s) PO QHS 03/01/2011 011 Inactive cyclobenzaprine 10 mg Tab RxNorm: 984439 1 Tablet(s) PO TID 011 03/18/2012 Inactive cyclobenzaprine 10 mg Tab RxNorm: 368478 1 Tablet(s) PO TID 011 01/08/2011 Inactive cyclobenzaprine 10 mg Tab RxNorm: 420128 1 Tablet(s) PO TID 011 12/20/2010 Inactive terbinafine 250 mg Tab RxNorm: 756783 1 Tablet(s) PO QD 12/12/2010 Inactive triamterene-hydrochlorothiazide 75 mg-50 mg Tab RxNorm: 3108 18 1 Tablet(s) PO QD 12/07/2010 06/04/2011 Inactive Klor-Con 8 8 mEq Tab RxNorm: 794053 1 Tablet(s) PO QD 12/07/201001/08 Inactive Premarin 1.25 mg Tab RxNorm: 807105 2 Tablet(s) PO QD 12/07/201001/08 Inactive clonidine 0.2 mg Tab RxNorm: 309580 1 Tablet(s) PO TID 12/07/2010 Inactive hydrocodone-acetaminophen 7.5 mg-650 mg Tab RxNorm: 664935 1 Ta blet(s) PO Q4H 12/05/2010 01/21/2019 Inactive hydrocodone-acetaminophen 7.5 mg-650 mg Tab RxNorm: 183206 1 Ta blet(s) PO Q4H 10/26/2010 11/14/2010 Inactive hydrocodone-acetaminophen 7.5 mg-650 mg Tab RxNorm: 269375 1 Ta blet(s) PO Q4H 10/13/2010 10/25/2010 Inactive hydrocodone-acetaminophen 7.5 mg-650 mg Tab RxNorm: 444664 1 Ta blet(s) PO Q4H 09/15/2010 09/12/2010 Inactive alprazolam 0.5 mg Tab RxNorm: 897230 1 Tablet(s) PO BID prn 011 09/12/2010 Inactive terbinafine 250 mg Tab RxNorm: 239042 1 Tablet(s) PO QD 09/05/2010 Inactive hydrocodone-acetaminophen 7.5 mg-650 mg Tab RxNorm: 922227 1 Ta blet(s) PO Q4H 08/29/2010 09/17/2010 Inactive alprazolam 0.5 mg Tab RxNorm: 283006 1 Tablet(s) PO BID prn 010 09/27/2010 Inactive alprazolam 0.5 mg Tab RxNorm: 977180 1 Tablet(s) PO BID prn 010 09/06/2010 Inactive Klor-Con 8 mEq Tab RxNorm: 635279 1 Tablet(s) PO QD 08/08/20102010 Inactive hydrocodone-acetaminophen 7.5 mg-650 mg Tab RxNorm: 923092 1 Ta blet(s) PO Q4H 08/08/2010 08/27/2010 Inactive Ambien 10 mg Tab RxNorm: 646911 1 Tablet(s) PO QHS 08/08/2010 Inactive clonidine 0.2 mg Tab RxNorm: 465167 1 Tablet(s) PO TID 08/08/2010 Inactive Premarin 1.25 mg Tab RxNorm: 954166 2 Tablet(s) PO QD 08/08/201009/12 Inactive Ambien 10 mg Tab RxNorm: 734785 1 Tablet(s) PO QHS 07/18/2010 Inactive alprazolam 0.5 mg Tab RxNorm: 290322 1 Tablet(s) PO BID prn 010 08/07/2010 Inactive hydrocodone-acetaminophen 7.5 mg-650 mg Tab RxNorm: 477200 1 Ta blet(s) PO Q4H 07/12/2010 07/31/2010 Inactive clonidine 0.2 mg Tab RxNorm: 973340 1 Tablet(s) PO TID 06/20/2010 Inactive terbinafine 250 mg Tab RxNorm: 641634 1 Tablet(s) PO QD 05/24/2010 Inactive Clonidine 0.2 mg Tab RxNorm: 022370 1 Tablet(s) PO TID 05/24/201006/2010 Inactive Ambien 10 mg Tab RxNorm: 430173 1 Tablet(s) PO QHS 05/24/2010 010 Inactive alprazolam 0.5 mg Tab RxNorm: 104634 1 Tablet(s) PO BID 05/24/2010 Inactive Klor-Con 8 mEq Tab RxNorm: 733266 1 Tablet(s) PO QD 05/24/20102009 Inactive alprazolam 0.5 mg Tab RxNorm: 058445 2 Tablet(s) PO QD prn 05/24/20 10 07/17/2010 Inactive triamterene-hydrochlorothiazide 75 mg-50 mg Tab RxNorm: 3108 18 1 Tablet(s) PO QD 05/24/2010 11/19/2010 Inactive Ambien 10 mg Tab RxNorm: 629768 1 Tablet(s) PO QHS 05/23/2010 010 Inactive Alprazolam 0.5 mg Tab RxNorm: 885505 2 Tablet(s) PO QD prn 05/23/2005/23/2010 Inactive Premarin 1.25 mg Tab RxNorm: 553293 2 Tablet(s) PO QD 05/19/201007/12 Inactive Hydrocodone-Acetaminophen 7.5 mg-650 mg Tab RxNorm: 099513 1 Ta blet(s) PO Q4H 05/19/2010 03/20/2011 Inactive Prednisone 20 mg Tab RxNorm: 199038 1 Tablet(s) PO BID 05/17/2010 Inactive Prednisone 20 mg Tab RxNorm: 274735 1 Tablet(s) PO BID 05/06/201001/2010 Inactive Premarin 1.25 mg Tab RxNorm: 114911 Tablet(s) PO 2 M-W-F, and 1 Hr-Ta-Upt-Sun 05/05/2010 08/02/2010 Inactive Premarin 1.25 mg Tab RxNorm: 037976 Tablet(s) PO 2 M-W-F, and 1 Jd-Pe-Ept-Sun 05/04/2010 05/04/2010 Inactive Premarin 1.25 mg Tab RxNorm: 920043 Tablet(s) PO 2 M-W-F, and 1 Xv-Yr-Wlo-Sun 05/04/2010 05/03/2010 Inactive Prednisone 20 mg Tab RxNorm: 046204 1 Tablet(s) PO BID 04/27/2010 Inactive Alprazolam 0.5 mg Tab RxNorm: 725288 2 Tablet(s) PO QD prn 04/26/20 10 05/22/2010 Inactive Clindamycin 300 mg Cap RxNorm: 633484 2 Capsule(s) PO TID 04/05/2010 04/18/2010 Inactive Terbinafine 250 mg Tab RxNorm: 382651 1 Tablet(s) PO QD 04/04/2010 Inactive Hydrocodone-Acetaminophen 7.5 mg-650 mg Tab RxNorm: 299559 1 Ta blet(s) PO Q4H 03/30/2010 04/18/2010 Inactive Avelox 400 mg Tab RxNorm: 270976 1 Tablet(s) PO QD 03/09/2010 010 Inactive Hydrocodone-Acetaminophen 7.5 mg-650 mg Tab RxNorm: 977037 1 Ta blet(s) PO Q4H 03/08/2010 03/27/2010 Inactive Alprazolam 0.5 mg Tab RxNorm: 425474 2 Tablet(s) PO QD prn 03/08/20 10 04/25/2010 Inactive Klor-Con 8 mEq Tab RxNorm: 302134 1 Tablet(s) PO QD when takes lasi x 03/07/2010 08/03/2010 Inactive Premarin 1.25 mg Tab RxNorm: 912628 1 Tablet(s) PO QD 03/03/201003/11 Inactive Alprazolam 0.5 mg Tab RxNorm: 446986 1 Tablet(s) PO BID PRN 010 No Stop Date Active triamterene-hydrochlorothiazide 75 mg-50 mg Tab RxNorm: 3108 18 1 Tablet(s) PO QD 02/09/2010 02/03/2011 Inactive Hydrocodone-Acetaminophen 10 mg-750 mg Tab RxNorm: 948959 1 Tablet(s) PO Q4H PRN 02/09/2010 03/20/2011 Inactive Clonidine 0.2 mg Tab RxNorm: 823705 1 Tablet(s) PO TID 01/13/201009/2009 Inactive Alprazolam 0.5 mg Tab RxNorm: 363433 1 Tablet(s) PO BID PRN 010 01/12/2010 Inactive Hydrocodone-Acetaminophen 10 mg-750 mg Tab RxNorm: 137136 1 Tablet(s) PO Q4H PRN 01/13/2010 01/12/2010 Inactive ANGELIQ 1 mg-0.5 mg Tab RxNorm: 9242896 1 Tablet(s) PO QD 12/27/2009 01/23/2010 Inactive Lasix 40 mg Tab RxNorm: 853269 1 Tablet(s) PO QAM 12/14/2009 06/11/20 10 Inactive Vitamin B12 1000mcg Tablet RxNorm: 1 Tablet(s) PO QD No Start Date Active cyclobenzaprine 10 mg tablet RxNorm: 449162 1 Tablet(s) PO TID as needed DO NOT USE WITH BACLOFEN No Start Date Active Vitamin D 5,000 unit Tab RxNorm: 1 Tablet(s) PO QD No Start Date Active vitamin E (dl, acetate) 400 unit Cap RxNorm: 591759 1 Capsule(s ) PO QD No Start Date Active Benadryl 25 mg Cap RxNorm: 1599321 Capsule(s) PO PRN No Start Date Inactive amitriptyline 100 mg tablet RxNorm: 796925 1 Tablet(s) PO QHS No St art Date 11/27/2016 Inactive Zithromax Z-Dustin 250 mg tablet RxNorm: 078715 Tablet(s) PO as di rected No Start Date 07/22/2013 Inactive Klor-Con 8 mEq tablet,extended release RxNorm: 910925 1 Tablet( s) PO BID No Start Date 07/28/2012 Inactive scopolamine 1.5 mg 72 hr Transderm Patch RxNorm: 006358 Application TD Q72H for motion sickness No Start Date 05/25/2013 Inactive Klonopin 1 mg tablet RxNorm: 197194 1-2 Tablet(s) PO QHS as nee ded for sleep No Start Date 06/20/2015 Inactive Klor-Con M20 mEq tablet,extended release RxNorm: 873526 2 Tablet(s) PO BID to use with lasix No Start Date 11/11/2013 Inactive Bystolic 5 mg tablet RxNorm: 063574 1 Tablet(s) PO QD No Start Date 1 Inactive Bystolic 10 mg tablet RxNorm: 924842 1 Tablet(s) PO BID No Start Da te 07/06/2015 Inactive Premarin 1.25 mg Tab RxNorm: 004509 Tablet(s) PO 2 -W-, and 1 Hz-Ax-Dpt-Sun No Start Date 05/03/2010 Inactive baclofen 20 mg tablet RxNorm: 007527 1 Tablet(s) PO TID as needed for muscle spasm No Start Date 07/22/2015 Inactive hydrocodone-acetaminophen 7.5 mg-650 mg Tab RxNorm: 827232 1 Tablet(s) PO Q4H as needed for pain No Start Date 03/20/2011 Inactive albuterol sulfate 1.25 mg/3 mL Neb Solution RxNorm: 469841 1 Unit Dose INH Q4H 2boxes No Start Date 09/06/2015 Inactive Butrans 20 mcg/hour Transderm Patch RxNorm: 375735 1 TD WEEKLY apply to skin weekly after removing previous. No Start Date 07/22/2013 Inactive Medrol (Dustin) 4 mg tablets in a dose pack RxNorm: 150890 Tablet(s) PO As Directed No Start Date 07/30/2016 Inactive hydrocodone-acetaminophen 10 mg-325 mg Tab RxNorm: 4542040 1-2 Tablet(s) PO TID as needed for pain No Start Date 03/19/2011 Inactive Klonopin 1 mg tablet RxNorm: 317637 1 Tablet(s) PO QHS No Start Date 02/28/2016 Inactive honey topical RxNorm: topical No Start Date 06/16/2018 Inactive Clonidine 0.2 mg Tab RxNorm: 075435 1 Tablet(s) PO TID No Start Date 01/12/2010 Inactive ketorolac 10 mg tablet RxNorm: 515393 1 Tablet(s) PO Q8H No Start D ate 03/18/2012 Inactive as needed for headache Singulair 10 mg Tab RxNorm: 971479 1 Tablet(s) PO QD No Start Date Inactive Premarin 1.25 mg Tab RxNorm: 524535 1 Tablet(s) PO QD No Start Date 1 Inactive Flonase 50 mcg/Actuation Nasal [place] RxNorm: 3104700 1 [place] CECELIA AL BID No Start Date 03/18/2012 Inactive Terbinafine 250 mg Tab RxNorm: 961283 1 Tablet(s) PO QD No Start Da te 04/03/2010 Inactive Fexofenadine 180 mg Tab RxNorm: 1377260 1 Tablet(s) PO QD No Start Date 09/06/2015 Inactive baclofen 20 mg tablet RxNorm: 406126 1 Tablet(s) PO TID as needed N o Start Date 05/25/2014 Inactive Diovan 160 mg Tab RxNorm: 940994 1 Tablet(s) PO QD No Start Date 09/12 Inactive mupirocin 2 % topical ointment RxNorm: 689977 1 Application TOP QID No Start Date 04/25/2016 Inactive ZOFRAN ODT 4 mg Tab, Rapid Dissolve RxNorm: 299898 1 Tablet(s) PO Q4H No Start Date 03/18/2012 Inactive as needed for nausea and vomiting Alprazolam 0.5 mg Tab RxNorm: 734238 1 Tablet(s) PO BID PRN No Star t Date 01/12/2010 Inactive cyclobenzaprine 10 mg tablet RxNorm: 519415 1 Tablet(s) PO TID as needed for muscle spasm No Start Date 10/08/2017 Inactive Albuterol 0.083% Aerosol Solution RxNorm: 1 Appl ication INH Q4H Use one ampule every 4 hrs with nebulizer as needed for shortness of breath. No Start Date 10/09/2010 Inactive lorazepam 1 mg tablet RxNorm: 671975 1 1/2 Tablet(s) PO QHS No Star t Date 02/02/2016 Inactive Melatonin 3 mg Tab RxNorm: 466583 Tablet(s) PO PRN No Start Date 07/11 Inactive Medrol (Dustin) 4 mg Tabs in a Dose Pack RxNorm: 032194 Tablet(s) PO N o Start Date 11/28/2010 Inactive lorazepam 1 mg tablet RxNorm: 815793 1 Tablet(s) PO QHS as need ed for sleep No Start Date 01/30/2016 Inactive hydrocodone-acetaminophen 10 mg-325 mg Tab RxNorm: 8283201 1-2 Tablet(s) PO QID as needed for severe pain No Start Date 03/24/2012 Inactive celecoxib 200 mg capsule RxNorm: 890847 1 Capsule(s) PO BID No Star t Date 06/26/2019 Inactive amlodipine 5 mg-benazepril 20 mg capsule RxNorm: 476839 1 Capsu le(s) PO QD No Start Date 04/10/2017 Inactive Bystolic 20 mg tablet RxNorm: 240526 1/2 Tablet(s) PO QAM No Start Date 01/23/2016 Inactive Bystolic 20 mg tablet RxNorm: 849861 1 Tablet(s) PO QAM No Start Da te 04/25/2016 Inactive Ambien 10 mg Tab RxNorm: 124288 1 Tablet(s) PO QHS No Start Date 05/11 Inactive Klor-Con 8 mEq Tab RxNorm: 209566 1 Tablet(s) PO QD when takes lasix No Start Date 03/06/2010 Inactive aspirin 81 mg tablet RxNorm: 942327 1 Tablet(s) PO QD No Start Date 0 01/29/2018 Inactive hydrocodone-acetaminophen 10 mg-325 mg Tab RxNorm: 8415417 1-2 T ablet(s) PO QID No Start Date 01/10/2012 Inactive Bystolic 10 mg tablet RxNorm: 754105 1 Tablet(s) PO QAM take one daily in the morning. No Start Date 05/28/2013 Inactive nystatin 100,000 unit/mL Oral Susp RxNorm: 840625 5 Milliliter( s) PO QID No Start Date 03/18/2012 Inactive swish and spit scopolamine 1.5 mg 72 hr Transderm Patch RxNorm: 463685 1 Unit Dose TD Q72H for motion sickness No Start Date 12/23/2013 Inactive Hydrocodone-Acetaminophen 10 mg-750 mg Tab RxNorm: 914901 1 Tablet(s) PO Q4H PRN No Start Date 01/12/2010 Inactive Soma 350 mg tablet RxNorm: 670840 1 Tablet(s) PO TID as needed for spasm No Start Date 01/12/2013 Inactive baclofen 10 mg tablet RxNorm: 611821 1 Tablet(s) PO TID as needed for muscle spasm No Start Date 09/18/2019 Inactive Soma 350 mg Tab RxNorm: 275014 1 Tablet(s) PO TID for spasm No Star t Date 01/31/2012 Inactive Co Q-10 400 mg capsule RxNorm: 053217 1 Capsule(s) PO QD No Start D ate 01/21/2019 Inactive nystatin 100,000 unit/gram topical cream RxNorm: 748075 Applica tion TOP BID No Start Date 03/22/2015 Inactive Exforge 5 mg-160 mg Tab RxNorm: 037259 1 Tablet(s) PO QD No Start D ate 10/09/2010 Inactive Hydrocodone-Acetaminophen 7.5 mg-650 mg Tab RxNorm: 942745 1 Ta blet(s) PO Q4H No Start Date 03/07/2010 Inactive Robaxin-750 750 mg Tab RxNorm: 663922 1-2 Tablet(s) PO TID prn spasm No Start Date 05/21/2011 Inactive amlodipine 5 mg tablet RxNorm: 538817 1 Tablet(s) PO QHS No Start D ate 09/29/2015 Inactive oxycodone-acetaminophen 10 mg-325 mg tablet RxNorm: 0083267 1-2 Tablet(s) PO Q6H No Start Date 06/16/2018 Inactive Triamterene-Hydrochlorothiazide 75 mg-50 mg Tab RxNorm: 3108 18 1 Tablet(s) PO QD No Start Date 02/08/2010 Inactive Alprazolam 0.5 mg Tab RxNorm: 004685 2 Tablet(s) PO QD prn No Start Date 03/07/2010 Inactive Bystolic 20 mg tablet RxNorm: 033314 1 Tablet(s) PO QAM No Start Da te 08/17/2015 Inactive ketorolac 10 mg tablet RxNorm: 934823 1 Tablet(s) PO QID prn he adache No Start Date 07/17/2012 Inactive acyclovir 800 mg Tab RxNorm: 325750 1 Tablet(s) PO BID No Start Date 03/18/2012 Inactive duloxetine 60 mg capsule,delayed release RxNorm: 910011 1 Capsu le(s) PO QD No Start Date 09/29/2015 Inactive Norvasc 5 mg tablet RxNorm: 037413 1 Tablet(s) PO QHS No Start Date 1 10/18/2014 Inactive promethazine 25 mg tablet RxNorm: 046622 1 Tablet(s) PO Q8H use sparingly No Start Date 07/22/2013 Inactive alprazolam 0.5 mg tablet RxNorm: 893018 3 Tablet(s) PO QHS No Start Date 06/06/2015 Inactive Lunesta 3 mg tablet RxNorm: 172499 1 Tablet(s) PO QHS No Start Date 0 09/20/2017 Inactive hydrocodone-acetaminophen 10 mg-325 mg Tab RxNorm: 8034577 1-2 Tablet(s) PO TID as needed for pain No Start Date 12/10/2011 Inactive Coricidin HBP Cough & Cold 4 mg-30 mg Tab RxNorm: 9514779 Tablet (s) PO PRN No Start Date 10/09/2010 Inactive Bactroban 2 % Ointment RxNorm: 540631 Application TOP QID to so res No Start Date 02/22/2012 Inactive Flonase 50 mcg/actuation Nasal [place] RxNorm: 820133 2 [place] QHS No Start Date 03/03/2014 Inactive Medication Administered No Medication Administered data Immunizations Vaccine Codes Date Status Tetanus, Diptheria, Pertussis CVX: 115 02/27/2014 Results Observation Observation Code Item Item Code Result Date S [facility] Location COMPLETE BLOOD COUNT [id number] WBC 10.7 10e9/L 018 Unknown COMPLETE BLOOD COUNT [id number] RBC 4.59 10e12/L 2017 Unknown COMPLETE BLOOD COUNT [id number] HEMOGLOBIN 14.8 g/dL 12/11/19 18 Unknown COMPLETE BLOOD COUNT [id number] HEMATOCRIT 44.9 % 12/11/19 18 Unknown COMPLETE BLOOD COUNT [id number] MCV 97.8 fL 8 Unknown COMPLETE BLOOD COUNT 1847316 MCH 32.2 pg 8 Unknown COMPLETE BLOOD COUNT 6890888 MCHC 33.0 g/dL 8 Unknown COMPLETE BLOOD COUNT [id number] PLATELET COUNT 261 10e9/L 10/2017 Unknown COMPLETE BLOOD COUNT 0601411 Mean Plt Volume 9.5 fL 10/2017 Unknown COMPLETE BLOOD COUNT 8113915 Neut Auto 59.9 % 8 Unknown COMPLETE BLOOD COUNT 0428315 Lymph Auto 27.4 % 12/11/19 18 Unknown COMPLETE BLOOD COUNT 7828503 [place] Auto 8.2 % 8 Unknown COMPLETE BLOOD COUNT 9197953 RDW 13.3 % 8 Unknown COMPLETE BLOOD COUNT 9853099 Eos Auto 4.1 % 8 Unknown COMPLETE BLOOD COUNT 1692063 Baso Auto 0.4 % 8 Unknown COMPLETE BLOOD COUNT 0029931 Neutrophil Abs 6.41 10e9/L Unknown COMPLETE BLOOD COUNT 1995001 Lymphocyte Abs 2.93 10e9/L Unknown COMPLETE BLOOD COUNT [id number] Monocyte Abs 0.88 10e9/L 10/2017 Unknown COMPLETE BLOOD COUNT 4905004 Eosinophil Abs 0.44 10e9/L Unknown COMPLETE BLOOD COUNT 4834341 RDW-SD 46.2 fL 8 Unknown COMPLETE BLOOD COUNT [id number] Basophil Abs 0.04 10e9/L 10/2017 Unknown THYROID STIMULATING HORMONE 00131 TSH 4.015 uIU/mL 12/10/2017 Unknown COMPREHENSIVE METABOLIC 07955 AST 25 U/L 2017 Unknown COMPREHENSIVE METABOLIC 68597 ALT 17 U/L 2017 Unknown COMPREHENSIVE METABOLIC 00642 BUN 19 mg/dL 2017 Unknown COMPREHENSIVE METABOLIC 13465 ALBUMIN 4.0 g/dL 2017 Unknown COMPREHENSIVE METABOLIC 62350 CHLORIDE 91 mmol/L 2017 Unknown COMPREHENSIVE METABOLIC 89700 Bili Total 0.5 mg/dL 12/10 Unknown COMPREHENSIVE METABOLIC 80980 ALK PHOS 75 U/L 2017 Unknown COMPREHENSIVE METABOLIC 46626 SODIUM 136 mmol/L 12/10 Unknown COMPREHENSIVE METABOLIC 34198 CREATININE 1.05 mg/dL 10/2017 Unknown COMPREHENSIVE METABOLIC 35872 CALCIUM 8.9 mg/dL 2017 Unknown COMPREHENSIVE METABOLIC 48975 POTASSIUM 3.4 mmol/L 12/10 Unknown COMPREHENSIVE METABOLIC 60314 Total Protein 6.5 g/dL Unknown COMPREHENSIVE METABOLIC 51336 Glucose 138 mg/dL 2017 Unknown COMPREHENSIVE METABOLIC 79581 Bicarbonate 35 mmol/L 10/2017 Unknown COMPREHENSIVE METABOLIC 06917 AGAP 10 mmol/L 2017 Unknown MEAN GLUC 0757886 Calc Mean Gluc 171 mg/dL 12/10/2017 Unkn own LIPID GROUP 44899 Cholesterol 204 mg/dL 12/10/2017 Unkno wn LIPID GROUP 65455 Triglyceride 411 mg/dL 12/10/2017 Unkn own LIPID GROUP 39408 HDL CHOLESTEROL 50 mg/dL 12/10/2017 U nknown LIPID GROUP 50808 Chol/HDL Ratio 4.08 ratio 12/10/2017 U nknown LIPID GROUP 74578 NON-HDL Chol 154 mg/dL 12/10/2017 Unkn own LIPID GROUP 35032 LDL Cholesterol N/A Trig >400 018 Unknown GLYCOSYLATED HEMOGLOBIN TEST 84624 Hgb A1c 00207-2 7.6 % 0 12/10/2017 Unknown FREE T4 25086 T4 Free 1.40 ng/dL 12/10/2017 Unknown GFR CALC 0745935 GFR Non Afr Amr 55 mL/min 12/10/2017 Unk nown GFR CALC 6008118 GFR Afr Amr >60 mL/min 12/10/2017 Unknow n GFR CALC 5458764 GFR Non Afr Amr 48 mL/min 06/28/2017 Unk nown GFR CALC 9694299 GFR Afr Amr 59 mL/min 06/28/2017 Unknown COMPREHENSIVE METABOLIC 39695 AST 32 U/L 2016 Unknown COMPREHENSIVE METABOLIC 75868 ALT 22 U/L 2016 Unknown COMPREHENSIVE METABOLIC 33435 BUN 23 mg/dL 2016 Unknown COMPREHENSIVE METABOLIC 66043 ALBUMIN 4.7 g/dL 2016 Unknown COMPREHENSIVE METABOLIC 14987 CHLORIDE 89 mmol/L 2016 Unknown COMPREHENSIVE METABOLIC 86836 Bili Total 0.5 mg/dL 06/28 Unknown COMPREHENSIVE METABOLIC 35140 ALK PHOS 90 U/L 2016 Unknown COMPREHENSIVE METABOLIC 10639 SODIUM 135 mmol/L 06/28 Unknown COMPREHENSIVE METABOLIC 15479 CREATININE 1.18 mg/dL 06/10 Unknown COMPREHENSIVE METABOLIC 38459 CALCIUM 9.7 mg/dL 2016 Unknown COMPREHENSIVE METABOLIC 75820 POTASSIUM 3.5 mmol/L 06/28 Unknown COMPREHENSIVE METABOLIC 35140 Total Protein 7.7 g/dL Unknown COMPREHENSIVE METABOLIC 20193 Glucose 129 mg/dL 2016 Unknown COMPREHENSIVE METABOLIC 39312 Bicarbonate 34 mmol/L 06/10 Unknown COMPREHENSIVE METABOLIC 97984 AGAP 12 mmol/L 2016 Unknown LIPID GROUP 77632 HDL TEST 64 MG/DL 08/27/2014 Unknown LIPID GROUP 43139 TRIG 222 MG/DL 08/27/2014 Unknown LIPID GROUP 02409 TEST LDL 209 MG/DL 08/27/2014 Unknown LIPID GROUP 81406 CHOL 317 MG/DL 08/27/2014 Unknown LIPID GROUP 88891 RCHOL/HDL 4.95 RATIO 08/27/2014 Unknow n LIPID GROUP 55836 NON-HDL CH 253 MG/DL 08/27/2014 Unknow n GFR CALC 8786768 GFR AA >60 ML/MIN 08/27/2014 Unknown GFR CALC 0738268 GFR NON-AA >60 ML/MIN 08/27/2014 Unknown COMPLETE BLOOD COUNT 0513667 WBC 7.0 10e9/L 08/27/20 14 Unknown COMPLETE BLOOD COUNT 4030186 RBC 4.98 10e12/L 2013 Unknown COMPLETE BLOOD COUNT 7948676 HGB 15.6 g/dL 4 Unknown COMPLETE BLOOD COUNT 6679418 HCT DET 46.5 % 4 Unknown COMPLETE BLOOD COUNT 4188521 MCV 93.4 fL 4 Unknown COMPLETE BLOOD COUNT 0624763 MCH 31.3 pg 4 Unknown COMPLETE BLOOD COUNT 9801737 MCHC 33.5 g/dL 4 Unknown COMPLETE BLOOD COUNT 1598454 PLT 309 10e9/L 08/27/20 14 Unknown COMPLETE BLOOD COUNT 4246885 MPV 9.6 fL 4 Unknown COMPLETE BLOOD COUNT 7552255 CADEN % 57.2 % 4 Unknown COMPLETE BLOOD COUNT 8426630 LY % 33.2 % 4 Unknown COMPLETE BLOOD COUNT 7715338 MON % 7.3 % 4 Unknown COMPLETE BLOOD COUNT 2314571 EOS % 2.0 % 4 Unknown COMPLETE BLOOD COUNT 7657313 BASO % 0.3 % 4 Unknown COMPLETE BLOOD COUNT 2549964 RDW 13.7 % 4 Unknown COMPLETE BLOOD COUNT 6825627 ABS CADEN 4.00 10e9/L 014 Unknown COMPLETE BLOOD COUNT 1464788 ABS LYMPH 2.32 10e9/L 014 Unknown COMPLETE BLOOD COUNT 3222919 ABS MONO 0.51 10e9/L 014 Unknown COMPLETE BLOOD COUNT 5966100 ABS EOS 0.14 10e9/L 014 Unknown COMPLETE BLOOD COUNT 3001548 ABS BASO 0.02 10e9/L 014 Unknown COMPLETE BLOOD COUNT 1762421 RDW-SD 45.1 fL 4 Unknown COMPREHENSIVE METABOLIC 05754 AST 13 U/L 2013 Unknown COMPREHENSIVE METABOLIC 82641 ALT 11 IU/L 2013 Unknown COMPREHENSIVE METABOLIC 99495 BUN 23 MG/DL 2013 Unknown COMPREHENSIVE METABOLIC 40354 ALBUMIN 4.4 GM/DL 2013 Unknown COMPREHENSIVE METABOLIC 48774 CHLORIDE 99 MMOL/L 2013 Unknown COMPREHENSIVE METABOLIC 49704 BILI TOT 0.5 MG/DL 2013 Unknown COMPREHENSIVE METABOLIC 61608 ALK PHOS 56 U/L 2013 Unknown COMPREHENSIVE METABOLIC 82915 SODIUM 138 MMOL/L 08/27 Unknown COMPREHENSIVE METABOLIC 09022 CREATININE 0.95 MG/DL 08/10 Unknown COMPREHENSIVE METABOLIC 82322 CALCIUM 9.8 MG/DL 2013 Unknown COMPREHENSIVE METABOLIC 03138 POTASSIUM 3.5 MMOL/L 08/27 Unknown COMPREHENSIVE METABOLIC 03208 PROT TOT 6.8 GM/DL 2013 Unknown COMPREHENSIVE METABOLIC 45738 Glucose 90 MG/DL 2013 Unknown COMPREHENSIVE METABOLIC 51744 BICARB 34 MMOL/L 2013 Unknown COMPREHENSIVE METABOLIC 38922 ANION GAP 5 MEQ/L 2013 Unknown LIPASE 70223 LIPASE 11 IU/L 07/21/2014 Unknown AMYLASE 93039 AMYLASE 39 IU/L 07/21/2014 Unknown HEMOGLOBIN A1C (GLYCOSYLATED) 8052401 A1C [facility] 35771-2 6.2 % 03/05/2013 Unknown THYROID STIMULATING HORMONE 45415 TSH 6.986 uIU/ML 03/05/2013 Unknown COMPLETE BLOOD COUNT 5812321 WBC 12.7 10e9/L 013 Unknown COMPLETE BLOOD COUNT 0816614 RBC 4.53 10e12/L 2012 Unknown COMPLETE BLOOD COUNT 7690343 HGB 14.7 g/dL 3 Unknown COMPLETE BLOOD COUNT 2990384 HCT DET 43.1 % 3 Unknown COMPLETE BLOOD COUNT 7193762 MCV 95.1 fL 3 Unknown COMPLETE BLOOD COUNT 0486461 MCH 32.5 pg 3 Unknown COMPLETE BLOOD COUNT 6322480 MCHC 34.1 g/dL 3 Unknown COMPLETE BLOOD COUNT 2154509 PLT 346 10e9/L 03/05/20 13 Unknown COMPLETE BLOOD COUNT 2288802 MPV 9.5 fL 3 Unknown COMPLETE BLOOD COUNT 0271097 CADEN % 67.6 % 3 Unknown COMPLETE BLOOD COUNT 6486954 LY % 22.1 % 3 Unknown COMPLETE BLOOD COUNT 3950108 MON % 6.6 % 3 Unknown COMPLETE BLOOD COUNT 0619632 EOS % 3.3 % 3 Unknown COMPLETE BLOOD COUNT 6669054 BASO % 0.4 % 3 Unknown COMPLETE BLOOD COUNT 6761256 RDW 14.0 % 3 Unknown COMPLETE BLOOD COUNT 0565630 ABS CADEN 8.59 10e9/L 013 Unknown COMPLETE BLOOD COUNT 7842149 ABS LYMPH 2.81 10e9/L 013 Unknown COMPLETE BLOOD COUNT 4412270 ABS MONO 0.84 10e9/L 013 Unknown COMPLETE BLOOD COUNT 6181798 ABS EOS 0.42 10e9/L 013 Unknown COMPLETE BLOOD COUNT 8562193 ABS BASO 0.05 10e9/L 013 Unknown COMPLETE BLOOD COUNT 3571918 RDW-SD 46.0 fL 3 Unknown FREE T4 87874 FREE T4 1.14 NG/DL 03/05/2013 Unknown COMPREHENSIVE METABOLIC 47230 AST 17 U/L 2012 Unknown COMPREHENSIVE METABOLIC 34672 ALT 12 IU/L 2012 Unknown COMPREHENSIVE METABOLIC 02393 BUN 24 MG/DL 2012 Unknown COMPREHENSIVE METABOLIC 84396 ALBUMIN 4.2 GM/DL 2012 Unknown COMPREHENSIVE METABOLIC 42963 CHLORIDE 93 MMOL/L 2012 Unknown COMPREHENSIVE METABOLIC 34771 BILI TOT 0.5 MG/DL 2012 Unknown COMPREHENSIVE METABOLIC 21250 ALK PHOS 75 U/L 2012 Unknown COMPREHENSIVE METABOLIC 08427 SODIUM 141 MMOL/L 03/05 Unknown COMPREHENSIVE METABOLIC 76513 CREATININE 1.36 MG/DL 02/09 Unknown COMPREHENSIVE METABOLIC 13342 CALCIUM 9.2 MG/DL 2012 Unknown COMPREHENSIVE METABOLIC 35503 POTASSIUM 3.1 MMOL/L 03/05 Unknown COMPREHENSIVE METABOLIC 19107 PROT TOT 6.9 GM/DL 2012 Unknown COMPREHENSIVE METABOLIC 95640 Glucose 123 MG/DL 2012 Unknown COMPREHENSIVE METABOLIC 03807 BICARB 36 MMOL/L 2012 Unknown COMPREHENSIVE METABOLIC 06958 ANION GAP 12 MEQ/L 2012 Unknown GFR CALC 4826337 GFR AA 51.0L ML/MIN 03/05/2013 Unknow n GFR CALC 5160720 GFR NON-AA 42.0L ML/MIN 03/05/2013 Unkno wn COMPREHENSIVE METABOLIC 38206 AST 14 U/L 2012 Unknown COMPREHENSIVE METABOLIC 14322 ALT 11 IU/L 2012 Unknown COMPREHENSIVE METABOLIC 69364 BUN 16 MG/DL 2012 Unknown COMPREHENSIVE METABOLIC 82278 ALBUMIN 4.2 GM/DL 2012 Unknown COMPREHENSIVE METABOLIC 61958 CHLORIDE 98 MMOL/L 2012 Unknown COMPREHENSIVE METABOLIC 32782 BILI TOT 0.4 MG/DL 2012 Unknown COMPREHENSIVE METABOLIC 51331 ALK PHOS 77 U/L 2012 Unknown COMPREHENSIVE METABOLIC 74312 SODIUM 139 MMOL/L 09/25 Unknown COMPREHENSIVE METABOLIC 07910 CREATININE 0.86 MG/DL 09/10 Unknown COMPREHENSIVE METABOLIC 49998 CALCIUM 9.5 MG/DL 2012 Unknown COMPREHENSIVE METABOLIC 05616 POTASSIUM 3.8 MMOL/L 09/25 Unknown COMPREHENSIVE METABOLIC 28617 PROT TOT 6.8 GM/DL 2012 Unknown COMPREHENSIVE METABOLIC 41447 Glucose 91 MG/DL 2012 Unknown COMPREHENSIVE METABOLIC 36476 BICARB 32 MMOL/L 2012 Unknown COMPREHENSIVE METABOLIC 05306 ANION GAP 9 MEQ/L 2012 Unknown FREE T4 40571 FREE T4 0.98 NG/DL 09/25/2012 Unknown THYROID STIMULATING HORMONE 45605 TSH 1.736 uIU/ML 09/25/2012 Unknown C-REACTIVE PROTEIN (CRP) QUANT 37856 CRP 2.3 MG/DL 09/25/2012 Unknown COMPLETE BLOOD COUNT 5275401 WBC 11.9 10e9/L 013 Unknown COMPLETE BLOOD COUNT 0950300 RBC 4.87 10e12/L 2012 Unknown COMPLETE BLOOD COUNT 3003705 HGB 15.1 g/dL 3 Unknown COMPLETE BLOOD COUNT 5514780 HCT DET 44.8 % 3 Unknown COMPLETE BLOOD COUNT 2262303 MCV 92.0 fL 3 Unknown COMPLETE BLOOD COUNT 3739080 MCH 31.0 pg 3 Unknown COMPLETE BLOOD COUNT 9422320 MCHC 33.7 g/dL 3 Unknown COMPLETE BLOOD COUNT 2807342 PLT 343 10e9/L 09/25/19 13 Unknown COMPLETE BLOOD COUNT 3960119 MPV 9.0 fL 3 Unknown COMPLETE BLOOD COUNT 6567696 CADEN % 68.2 % 3 Unknown COMPLETE BLOOD COUNT 3572368 LY % 22.4 % 3 Unknown COMPLETE BLOOD COUNT 3197970 MON % 6.4 % 3 Unknown COMPLETE BLOOD COUNT 4422148 EOS % 2.7 % 3 Unknown COMPLETE BLOOD COUNT 3512159 BASO % 0.3 % 3 Unknown COMPLETE BLOOD COUNT 3899294 RDW 13.8 % 3 Unknown COMPLETE BLOOD COUNT 7019086 ABS CADEN 8.12 10e9/L 013 Unknown COMPLETE BLOOD COUNT [id number] ABS LYMPH 2.67 10e9/L 013 Unknown COMPLETE BLOOD COUNT 1031473 ABS MONO 0.76 10e9/L 013 Unknown COMPLETE BLOOD COUNT 6696431 ABS EOS 0.32 10e9/L 013 Unknown COMPLETE BLOOD COUNT 8431875 ABS BASO 0.04 10e9/L 013 Unknown COMPLETE BLOOD COUNT 7570432 RDW-SD 45.6 fL 3 Unknown GFR CALC 4277455 GFR AA >60 ML/MIN 09/25/2012 Unknown GFR CALC 3266154 GFR NON-AA >60 ML/MIN 09/25/2012 Unknown ERYTHROCYTE SEDIMENTATION RATE 96034 ESR 19 MM/HR 05/06/2012 Unknown VITAMIN B 12 FOLIC ACID 06984|09165 VIT B 12 922 PG/ML 04/11 Unknown VITAMIN B 12 FOLIC ACID 79874|84478 FOLIC ACID 13.6 NG/ML Unknown URIC ACID 32654 URIC ACID 7.8 MG/DL 05/06/2012 Unknown COMPLETE BLOOD COUNT 00008 WBC 11.9 10e9/L 012 Unknown COMPLETE BLOOD COUNT 28541 RBC 5.30 10e12/L 2011 Unknown COMPLETE BLOOD COUNT 89851 HGB 16.6 g/dL 2 Unknown COMPLETE BLOOD COUNT 90113 HCT DET 47.2 % 2 Unknown COMPLETE BLOOD COUNT 42095 MCV 89.1 fL 2 Unknown COMPLETE BLOOD COUNT 64118 MCH 31.3 pg 2 Unknown COMPLETE BLOOD COUNT 50669 MCHC 35.2 g/dL 2 Unknown COMPLETE BLOOD COUNT 24691 PLT 362 10e9/L 05/06/20 12 Unknown COMPLETE BLOOD COUNT 63237 MPV 9.4 fL 2 Unknown COMPLETE BLOOD COUNT 06310 CADEN % 68.2 % 2 Unknown COMPLETE BLOOD COUNT 05154 LY % 22.0 % 2 Unknown COMPLETE BLOOD COUNT 35157 MON % 6.9 % 2 Unknown COMPLETE BLOOD COUNT 24342 EOS % 2.6 % 2 Unknown COMPLETE BLOOD COUNT 84258 BASO % 0.3 % 2 Unknown COMPLETE BLOOD COUNT 29139 RDW 12.8 % 2 Unknown COMPLETE BLOOD COUNT 85182 ABS CADEN 8.12 10e9/L 012 Unknown COMPLETE BLOOD COUNT 19308 ABS LYMPH 2.62 10e9/L 012 Unknown COMPLETE BLOOD COUNT 08675 ABS MONO 0.82 10e9/L 012 Unknown COMPLETE BLOOD COUNT 74425 ABS EOS 0.31 10e9/L 08/27/2 012 Unknown COMPLETE BLOOD COUNT 23625 ABS BASO 0.04 10e9/L 012 Unknown COMPLETE BLOOD COUNT 55392 RDW-SD 41.5 fL 2 Unknown GFR CALC 6143562 GFR AA >60 ML/MIN 05/06/2012 Unknown GFR CALC 6413570 GFR NON-AA 58.0L ML/MIN 05/06/2012 Unkno wn FREE T4 58328 FREE T4 1.15 NG/DL 05/06/2012 Unknown THYROID STIMULATING HORMONE 40527 TSH 1.568 uIU/ML 05/06/2012 Unknown COMPREHENSIVE METABOLIC 82531 AST 20 U/L 2011 Unknown COMPREHENSIVE METABOLIC 76812 ALT 12 IU/L 2011 Unknown COMPREHENSIVE METABOLIC 28843 BUN 20 MG/DL 2011 Unknown COMPREHENSIVE METABOLIC 51822 ALBUMIN 4.5 GM/DL 2011 Unknown COMPREHENSIVE METABOLIC 80915 CHLORIDE 91 MMOL/L 2011 Unknown COMPREHENSIVE METABOLIC 12578 BILI TOT 0.4 MG/DL 2011 Unknown COMPREHENSIVE METABOLIC 65982 ALK PHOS 73 U/L 2011 Unknown COMPREHENSIVE METABOLIC 66651 SODIUM 139 MMOL/L 05/06 Unknown COMPREHENSIVE METABOLIC 59265 CREATININE 1.02 MG/DL 04/11 Unknown COMPREHENSIVE METABOLIC 66113 CALCIUM 9.7 MG/DL 2011 Unknown COMPREHENSIVE METABOLIC 74643 POTASSIUM 3.1 MMOL/L 05/06 Unknown COMPREHENSIVE METABOLIC 00505 PROT TOT 7.3 GM/DL 2011 Unknown COMPREHENSIVE METABOLIC 27559 Glucose 118 MG/DL 2011 Unknown COMPREHENSIVE METABOLIC 39466 BICARB 33 MMOL/L 2011 Unknown COMPREHENSIVE METABOLIC 00444 ANION GAP 15 MEQ/L 2011 Unknown Procedures Procedure Codes Date ROUTINE VENIPUNCTURE CPT-4: 58113 09/29/2019 URINALYSIS NONAUTO W/O SCOPE CPT-4: 59982 09/29/2019 COMPREHEN METABOLIC PANEL CPT-4: 86915 09/29/2019 LIPID PANEL CPT-4: 82663 09/29/2019 A1C HPLC CPT-4: 51174 09/29/2019 ASSAY OF FREE THYROXINE CPT-4: 39021 09/29/2019 ASSAY THYROID STIM HORMONE CPT-4: 06413 09/29/2019 COMPLETE CBC W/AUTO DIFF WBC CPT-4: 83053 09/29/2019 URINALYSIS NONAUTO W/O SCOPE CPT-4: 82684 09/30/2018 MICROALBUMIN QUANTITATIVE CPT-4: 14784 09/30/2018 CEFTRIAXONE SODIUM INJECTION CPT-4: J0696 06/19/2018 THER/PROPH/DIAG INJ SC/IM CPT-4: 74061 06/19/2018 CEFTRIAXONE SODIUM INJECTION CPT-4: J0696 06/17/2018 THER/PROPH/DIAG INJ SC/IM CPT-4: 53948 06/17/2018 THER/PROPH/DIAG INJ SC/IM CPT-4: 68032 05/16/2018 KETOROLAC TROMETHAMINE INJ CPT-4: J1885 05/16/2018 ONDANSETRON HCL INJECTION CPT-4: J2405 05/16/2018 THER/PROPH/DIAG INJ SC/IM CPT-4: 59331 05/16/2018 ROUTINE VENIPUNCTURE CPT-4: 37667 03/20/2018 COMPREHEN METABOLIC PANEL CPT-4: 72809 03/20/2018 DEXAMETHASONE SODIUM PHOS CPT-4: J1100 02/11/2018 THER/PROPH/DIAG INJ SC/IM CPT-4: 40752 02/11/2018 TRIAMCINOLONE ACET INJ NOS CPT-4: J3301 02/11/2018 CEFTRIAXONE SODIUM INJECTION CPT-4: J0696 02/01/2018 THER/PROPH/DIAG INJ SC/IM CPT-4: 90895 02/01/2018 CEFTRIAXONE SODIUM INJECTION CPT-4: J0696 01/30/2018 THER/PROPH/DIAG INJ SC/IM CPT-4: 38055 01/30/2018 ROUTINE VENIPUNCTURE CPT-4: 17557 12/10/2017 ASSAY OF FREE THYROXINE CPT-4: 22592 12/10/2017 ASSAY THYROID STIM HORMONE CPT-4: 34211 12/10/2017 COMPREHEN METABOLIC PANEL CPT-4: 83942 12/10/2017 COMPLETE CBC W/AUTO DIFF WBC CPT-4: 42363 12/10/2017 LIPID PANEL CPT-4: 00911 12/10/2017 A1C HPLC CPT-4: 41677 12/10/2017 CEFTRIAXONE SODIUM INJECTION CPT-4: J0696 12/10/2017 THER/PROPH/DIAG INJ SC/IM CPT-4: 41523 12/10/2017 CEFTRIAXONE SODIUM INJECTION CPT-4: J0696 12/07/2017 THER/PROPH/DIAG INJ SC/IM CPT-4: 88020 12/07/2017 DEXAMETHASONE SODIUM PHOS CPT-4: J1100 12/07/2017 THER/PROPH/DIAG INJ SC/IM CPT-4: 30423 12/07/2017 CEFTRIAXONE SODIUM INJECTION CPT-4: J0696 10/08/2017 THER/PROPH/DIAG INJ SC/IM CPT-4: 63883 10/08/2017 CEFTRIAXONE SODIUM INJECTION CPT-4: J0696 09/21/2017 THER/PROPH/DIAG INJ SC/IM CPT-4: 27456 09/21/2017 CEFTRIAXONE SODIUM INJECTION CPT-4: J0696 09/20/2017 THER/PROPH/DIAG INJ SC/IM CPT-4: 56010 09/20/2017 REMOVAL OF NAIL PLATE CPT-4: 98210 08/29/2017 THER/PROPH/DIAG INJ SC/IM CPT-4: 30705 08/29/2017 TRIAMCINOLONE ACET INJ NOS CPT-4: J3301 08/29/2017 CEFTRIAXONE SODIUM INJECTION CPT-4: J0696 08/29/2017 THER/PROPH/DIAG INJ SC/IM CPT-4: 75214 08/29/2017 DESTRUCT PREMALG LESION (Cryosurgery) CPT-4: 29507 ROUTINE VENIPUNCTURE CPT-4: 71402 06/27/2017 ASSAY OF FREE THYROXINE CPT-4: 28631 06/27/2017 ASSAY THYROID STIM HORMONE CPT-4: 85103 06/27/2017 COMPREHEN METABOLIC PANEL CPT-4: 76005 06/27/2017 COMPLETE CBC W/AUTO DIFF WBC CPT-4: 27734 06/27/2017 EXC TR-EXT B9+REECE 0.5 CM< CPT-4: 35058 01/24/2017 THER/PROPH/DIAG INJ SC/IM CPT-4: 34675 08/02/2016 DEXAMETHASONE SODIUM PHOS CPT-4: J1100 08/02/2016 DESTRUCT PREMALG LESION (Cryosurgery) CPT-4: 92918 EXC TR-EXT B9+REECE 0.5 CM< CPT-4: 06524 08/01/2016 AEROBIC WOUND CULTURE & STN CPT-4: 11057 07/06/2016 CEFTRIAXONE SODIUM INJECTION CPT-4: J0696 05/25/2016 THER/PROPH/DIAG INJ SC/IM CPT-4: 31106 05/25/2016 THER/PROPH/DIAG INJ SC/IM CPT-4: 77922 04/26/2016 DEXAMETHASONE SODIUM PHOS CPT-4: J1100 04/26/2016 CEFTRIAXONE SODIUM INJECTION CPT-4: J0696 04/26/2016 THER/PROPH/DIAG INJ SC/IM CPT-4: 75777 04/26/2016 THER/PROPH/DIAG INJ SC/IM CPT-4: 72281 02/09/2016 TRIAMCINOLONE ACET INJ NOS CPT-4: J3301 02/09/2016 URINALYSIS NONAUTO W/O SCOPE CPT-4: 48970 01/24/2016 URINE CULTURE/ COLONY COUNT CPT-4: 44663 01/24/2016 THER/PROPH/DIAG INJ SC/IM CPT-4: 49150 12/08/2015 TRIAMCINOLONE ACET INJ NOS CPT-4: J3301 12/08/2015 THER/PROPH/DIAG INJ SC/IM CPT-4: 60340 10/07/2015 TRIAMCINOLONE ACET INJ NOS CPT-4: J3301 10/07/2015 DESTRUCT PREMALG LESION (Cryosurgery) CPT-4: 00499 THER/PROPH/DIAG INJ SC/IM CPT-4: 18246 03/16/2015 METHYLPREDNISOLONE 40 MG INJ CPT-4: J1030 03/16/2015 DESTRUCT PREMALG LESION (Cryosurgery) CPT-4: 77928 THER/PROPH/DIAG INJ SC/IM CPT-4: 82925 09/11/2014 METHYLPREDNISOLONE 40 MG INJ CPT-4: J1030 09/11/2014 TRIAMCINOLONE ACET INJ NOS CPT-4: J3301 09/11/2014 CEFTRIAXONE SODIUM INJECTION CPT-4: J0696 09/11/2014 THER/PROPH/DIAG INJ SC/IM CPT-4: 59844 09/11/2014 ROUTINE VENIPUNCTURE CPT-4: 48458 08/27/2014 COMPREHEN METABOLIC PANEL CPT-4: 10476 08/27/2014 COMPLETE CBC W/AUTO DIFF WBC CPT-4: 34811 08/27/2014 LIPID PANEL CPT-4: 96804 08/27/2014 ROUTINE VENIPUNCTURE CPT-4: 54882 07/21/2014 ASSAY OF AMYLASE CPT-4: 65609 07/21/2014 ASSAY OF LIPASE CPT-4: 69644 07/21/2014 THER/PROPH/DIAG INJ SC/IM CPT-4: 16752 07/15/2014 TRIAMCINOLONE ACET INJ NOS CPT-4: J3301 07/15/2014 ROUTINE VENIPUNCTURE CPT-4: 87057 05/14/2014 ASSAY OF FREE THYROXINE CPT-4: 84868 05/14/2014 ASSAY THYROID STIM HORMONE CPT-4: 12742 05/14/2014 COMPREHEN METABOLIC PANEL CPT-4: 54476 05/14/2014 COMPLETE CBC W/AUTO DIFF WBC CPT-4: 16955 05/14/2014 LIPID PANEL CPT-4: 90624 05/14/2014 CEFTRIAXONE SODIUM INJECTION CPT-4: J0696 04/21/2014 THER/PROPH/DIAG INJ SC/IM CPT-4: 22481 04/21/2014 THER/PROPH/DIAG INJ SC/IM CPT-4: 08221 04/21/2014 TRIAMCINOLONE ACET INJ NOS CPT-4: J3301 04/21/2014 THER/PROPH/DIAG INJ SC/IM CPT-4: 39958 03/04/2014 METHYLPREDNISOLONE 40 MG INJ CPT-4: J1030 03/04/2014 TRIAMCINOLONE ACET INJ NOS CPT-4: J3301 03/04/2014 CEFTRIAXONE SODIUM INJECTION CPT-4: J0696 03/04/2014 THER/PROPH/DIAG INJ SC/IM CPT-4: 47027 03/04/2014 TDAP VACCINE 7 YRS/> IM CPT-4: 36559 02/27/2014 IMMUNIZATION ADMIN CPT-4: 67396 02/27/2014 DESTRUCT PREMALG LESION (Cryosurgery) CPT-4: 78049 DESTRUCT PREMALG LES 2-14 CPT-4: 00538 01/13/2014 THER/PROPH/DIAG INJ SC/IM CPT-4: 28797 10/21/2013 METHYLPREDNISOLONE 40 MG INJ CPT-4: J1030 10/21/2013 TRIAMCINOLONE ACET INJ NOS CPT-4: J3301 10/21/2013 CEFTRIAXONE SODIUM INJECTION CPT-4: J0696 08/27/2013 THER/PROPH/DIAG INJ SC/IM CPT-4: 60693 08/27/2013 THER/PROPH/DIAG INJ SC/IM CPT-4: 37467 08/27/2013 METHYLPREDNISOLONE 40 MG INJ CPT-4: J1030 08/27/2013 TRIAMCINOLONE ACET INJ NOS CPT-4: J3301 08/27/2013 THER/PROPH/DIAG INJ SC/IM CPT-4: 13799 06/23/2013 METHYLPREDNISOLONE 40 MG INJ CPT-4: J1030 06/23/2013 TRIAMCINOLONE ACET INJ NOS CPT-4: J3301 06/23/2013 THER/PROPH/DIAG INJ SC/IM CPT-4: 97059 05/26/2013 METHYLPREDNISOLONE 40 MG INJ CPT-4: J1030 05/26/2013 TRIAMCINOLONE ACET INJ NOS CPT-4: J3301 05/26/2013 ROUTINE VENIPUNCTURE CPT-4: 72961 03/05/2013 ASSAY OF FREE THYROXINE CPT-4: 66000 03/05/2013 ASSAY THYROID STIM HORMONE CPT-4: 14705 03/05/2013 COMPREHEN METABOLIC PANEL CPT-4: 37461 03/05/2013 COMPLETE CBC W/AUTO DIFF WBC CPT-4: 65236 03/05/2013 A1C GLYCOSYLATED HEMOGLOBIN TEST CPT-4: 70426 013 DRAIN/INJECT JOINT/BURSA CPT-4: 90278 12/04/2012 METHYLPREDNISOLONE 40 MG INJ CPT-4: J1030 12/04/2012 TRIAMCINOLONE ACET INJ NOS CPT-4: J3301 12/04/2012 CEFTRIAXONE SODIUM INJECTION CPT-4: J0696 11/21/2012 THER/PROPH/DIAG INJ SC/IM CPT-4: 42912 11/21/2012 THER/PROPH/DIAG INJ SC/IM CPT-4: 40139 10/14/2012 METHYLPREDNISOLONE 40 MG INJ CPT-4: J1030 10/14/2012 TRIAMCINOLONE ACET INJ NOS CPT-4: J3301 10/14/2012 URINALYSIS NONAUTO W/O SCOPE CPT-4: 53053 09/27/2012 ROUTINE VENIPUNCTURE CPT-4: 20739 09/25/2012 ASSAY OF FREE THYROXINE CPT-4: 47844 09/25/2012 ASSAY THYROID STIM HORMONE CPT-4: 22489 09/25/2012 COMPREHEN METABOLIC PANEL CPT-4: 85351 09/25/2012 COMPLETE CBC W/AUTO DIFF WBC CPT-4: 25148 09/25/2012 C-REACTIVE PROTEIN CPT-4: 31212 09/25/2012 THER/PROPH/DIAG INJ SC/IM CPT-4: 83126 08/29/2012 METHYLPREDNISOLONE 40 MG INJ CPT-4: J1030 08/29/2012 TRIAMCINOLONE ACET INJ NOS CPT-4: J3301 08/29/2012 DESTRUCT PREMALG LESION (Cryosurgery) CPT-4: 10218 THER/PROPH/DIAG INJ SC/IM CPT-4: 24057 05/06/2012 METHYLPREDNISOLONE 40 MG INJ CPT-4: J1030 05/06/2012 TRIAMCINOLONE ACET INJ NOS CPT-4: J3301 05/06/2012 VITAMIN B 12 FOLIC ACID CPT-4: 66944|46948 05/06/2012 RBC SED RATE AUTOMATED CPT-4: 22803 05/06/2012 ROUTINE VENIPUNCTURE CPT-4: 21782 05/06/2012 ASSAY OF FREE THYROXINE CPT-4: 94493 05/06/2012 ASSAY THYROID STIM HORMONE CPT-4: 23527 05/06/2012 COMPREHEN METABOLIC PANEL CPT-4: 85301 05/06/2012 COMPLETE CBC W/AUTO DIFF WBC CPT-4: 68663 05/06/2012 ASSAY OF BLOOD/URIC ACID CPT-4: 17556 05/06/2012 THER/PROPH/DIAG INJ SC/IM CPT-4: 43755 03/19/2012 KETOROLAC TROMETHAMINE INJ CPT-4: J1885 03/19/2012 KETOROLAC TROMETHAMINE INJ CPT-4: J1885 01/30/2012 THER/PROPH/DIAG INJ SC/IM CPT-4: 80733 01/30/2012 PROMETHAZINE HCL INJECTION CPT-4: J2550 01/30/2012 THER/PROPH/DIAG INJ SC/IM CPT-4: 24197 01/24/2012 METHYLPREDNISOLONE 40 MG INJ CPT-4: J1030 01/24/2012 TRIAMCINOLONE ACET INJ NOS CPT-4: J3301 01/24/2012 THER/PROPH/DIAG INJ SC/IM CPT-4: 68205 09/13/2011 KETOROLAC TROMETHAMINE INJ CPT-4: J1885 09/13/2011 THER/PROPH/DIAG INJ SC/IM CPT-4: 59153 09/13/2011 PROMETHAZINE HCL INJECTION CPT-4: J2550 09/13/2011 CEFTRIAXONE SODIUM INJECTION CPT-4: J0696 07/20/2011 THER/PROPH/DIAG INJ SC/IM CPT-4: 98433 07/20/2011 THER/PROPH/DIAG INJ SC/IM CPT-4: 00463 07/20/2011 METHYLPREDNISOLONE INJECTION CPT-4: J2930 07/20/2011 URINALYSIS NONAUTO W/O SCOPE CPT-4: 72437 05/09/2011 CEFTRIAXONE SODIUM INJECTION CPT-4: J0696 05/09/2011 THER/PROPH/DIAG INJ SC/IM CPT-4: 16718 05/09/2011 THER/PROPH/DIAG INJ SC/IM CPT-4: 52074 05/09/2011 PROMETHAZINE HCL INJECTION CPT-4: J2550 05/09/2011 HYDRATION IV INFUSION INIT CPT-4: 05372 05/09/2011 DESTRUCT PREMALG LESION (Cryosurgery) CPT-4: 98926 DESTRUCT PREMALG LES 2-14 CPT-4: 42634 07/19/2010 REMOVAL OF SKIN TAGS <W/15 CPT-4: 37552 05/30/2010 THER/PROPH/DIAG INJ SC/IM CPT-4: 64549 04/05/2010 CEFTRIAXONE SODIUM INJECTION CPT-4: J0696 04/05/2010 TRIAMCINOLONE ACET INJ NOS CPT-4: J3301 04/05/2010 METHYLPREDNISOLONE 40 MG INJ CPT-4: J1030 04/05/2010 THER/PROPH/DIAG INJ SC/IM CPT-4: 87303 04/05/2010 TRIAMCINOLONE ACET INJ NOS CPT-4: J3301 03/09/2010 METHYLPREDNISOLONE 40 MG INJ CPT-4: J1030 03/09/2010 THER/PROPH/DIAG INJ SC/IM CPT-4: 46211 03/09/2010 THER/PROPH/DIAG INJ SC/IM CPT-4: 04319 03/09/2010 CEFTRIAXONE SODIUM INJECTION CPT-4: J0696 03/09/2010 Vital Signs Date Vital 05/28/2019 Blood Pressure 1: 126/82 Code: 8480-6 BMI: 35.0 Code: 45968-3 Heart Rate 1: 88 bpm Height: 5'4" [...] 1: 128/90 Code: 8480-6 BMI: 37.2 Code: 57044-0 Heart Rate 1: 84 bpm Height: 5'4" Respiratory Rate: 20 bpm SpO2: 95% Tempera ture: 36.6 (C) / 97.8 (F) Weight: 217 lbs 08/27/2018 Blood Pressure 1: 128/88 Code: 8480-6 BMI: 38.3 Code: 85242-1 Heart Rate 1: 84 bpm Height: 5'4" [...] 1: 119/72 Code: 8480-6 BMI: 37.4 Code: 37057-3 Heart Rate 1: 82 bpm Height: 5'4" Respiratory Rate: 12 bpm SpO2: 94% Tempera ture: 35.2 (C) / 95.4 (F) Weight: 218 lbs 12/18/2017 Blood Pressure 1: 128/86 Code: 8480-6 BMI: 37.8 Code: 38752-7 Heart Rate 1: 84 bpm Height: 5'4" [...] 1: 128/82 Code: 8480-6 BMI: 35.5 Code: 54274-9 Heart Rate 1: 84 bpm Height: 5'4" [...] 1: 128/82 Code: 8480-6 BMI: 30.2 Code: 22301-6 Heart Rate 1: 80 bpm Height: 5'4" [...] 1: 128/86 Code: 8480-6 BMI: 32.8 Code: 68980-5 Heart Rate 1: 66 bpm Height: 5'4" Respiratory Rate: 18 bpm Temperature: 36 .3 (C) / 97.3 (F) Weight: 191 lbs 06/23/2013 Blood Pressure 1: 132/94 Code: 8480-6 BMI: 34.0 Code: 98821-1 Heart Rate 1: 84 bpm Height: 5'4" Respiratory Rate: 20 bpm Temperature: 36 .8 (C) / 98.2 (F) Weight: 198 lbs 05/26/2013 Blood Pressure 1: 114/80 Code: 8480-6 BMI: 35.0 Code: 43363-9 Heart Rate 1: 80 bpm Height: 5'4" Respiratory Rate: 20 bpm Temperature: 36 .4 (C) / 97.6 (F) Weight: 204 lbs 04/16/2013 Blood Pressure 1: 114/82 Code: 8480-6 BMI: 36.7 Code: 56294-6 Heart Rate 1: 84 bpm Height: 5'4" Respiratory Rate: 20 bpm Temperature: 36 .7 (C) / 98.0 (F) Weight: 214 lbs 03/05/2013 Blood Pressure 1: 136/90 Code: 8480-6 BMI: 37.1 Code: 35569-5 Heart Rate 1: 84 bpm Height: 5'4" [...] 1: 168/114 Code: 8480-6 BMI: 36.2 Code: 55605-3 Heart Rate 1: 104 bpm Height: 5'4" Respiratory Rate: 20 bpm Temperature: 36 .8 (C) / 98.2 (F) Weight: 211 lbs 11/22/2012 Blood Pressure 1: 128/90 Code: 8480-6 Heart Rate 1: 88 bpm Respiratory Rate: 20 bpm SpO2: 96% Temperature: 36.8 (C) / 98.2 (F) 11/21/2012 Blood Pressure 1: 146/100 Code: 8480-6 BMI: 35.7 Code: 63810-1 Heart Rate 1: 96 bpm Height: 5'4" [...] 1: 138/100 Code: 8480-6 BMI: 35.7 Code: 27251-0 Heart Rate 1: 96 bpm Height: 5'4" Respiratory Rate: 20 bpm Temperature: 36 .8 (C) / 98.2 (F) Weight: 208 lbs 05/06/2012 Blood Pressure 1: 154/102 Code: 8480-6 BMI: 34.7 Code: 73159-5 Heart Rate 1: 116 bpm Height: 5'4" Respiratory Rate: 20 bpm Temperature: 36 .8 (C) / 98.2 (F) Weight: 202 lbs 04/03/2012 Blood Pressure 1: 134/94 Code: 8480-6 BMI: 34.8 Code: 79406-1 Heart Rate 1: 108 bpm Height: 5'4" Respiratory Rate: 20 bpm Temperature: 36 .8 (C) / 98.2 (F) Weight: 203 lbs 03/19/2012 Blood Pressure 1: 148/106 Code: 8480-6 BMI: 35.0 Code: 63570-6 Heart Rate 1: 100 bpm Height: 5'4" Respiratory Rate: 20 bpm Temperature: 36 .6 (C) / 97.9 (F) Weight: 204 lbs 02/22/2012 Blood Pressure 1: 146/94 Code: 8480-6 He art Rate 1: 88 bpm 02/21/2012 Blood Pressure 1: 172/120 Code: 8480-6 B lood Pressure 2: 152/106 Code: 8480-6 Heart Rate 1: 116 bpm 02/20/2012 Blood Pressure 1: 160/100 Code: 8480-6 BMI: 32.0 Code: 31013-1 Heart Rate 1: 84 bpm Height: 5'7" Temperature: 36.5 (C) / 97.7 (F) Weight: 204 lbs 01/30/2012 Blood Pressure 1: 152/110 Code: 8480-6 BMI: 32.0 Code: 24706-2 Heart Rate 1: 116 bpm Height: 5'7" Respiratory Rate: 20 bpm Temperature: 37 .0 (C) / 98.6 (F) Weight: 204 lbs 01/24/2012 Blood Pressure 1: 146/100 Code: 8480-6 BMI: 32.0 Code: 84374-4 Heart Rate 1: 100 bpm Height: 5'7" Respiratory Rate: 20 bpm Temperature: 36 .7 (C) / 98.0 (F) Weight: 204 lbs 01/10/2012 Blood Pressure 1: 156/94 Code: 8480-6 BMI: 32.6 Code: 09093-6 Heart Rate 1: 72 bpm Height: 5'7" Respiratory Rate: 20 bpm Temperature: 36 .8 (C) / 98.2 (F) Weight: 208 lbs 12/11/2011 Blood Pressure 1: 146/100 Code: 8480-6 Heart Rat e 1: 116 bpm Height: 5'7" Respiratory Rate: 20 bpm Temperature: 36.9 (C) / 98.4 (F) We ight: 11/09/2011 Blood Pressure 1: 148/96 Code: 8480-6 BMI: 32.1 Code: 69130-7 Heart Rate 1: 116 bpm Height: 5'7" Respiratory Rate: 20 bpm Temperature: 36 .7 (C) / 98.0 (F) Weight: 205 lbs 09/13/2011 Blood Pressure 1: 126/88 Code: 8480-6 Heart Rate 1: 88 bpm Height: 5'7" Respiratory Rate: 20 bpm Temperature: 36.9 (C) / 98.4 (F) We ight: 08/31/2011 Blood Pressure 1: 118/82 Code: 8480-6 BMI: 32.0 Code: 46993-9 Heart Rate 1: 80 bpm Height: 5'7" Temperature: 36.4 (C) / 97.6 (F) Weight: 204 lbs 07/06/2011 Blood Pressure 1: 128/86 Code: 8480-6 BMI: 30.9 Code: 17019-9 Heart Rate 1: 92 bpm Height: 5'7" Respiratory Rate: 20 bpm Temperature: 36 .9 (C) / 98.4 (F) Weight: 197 lbs 06/06/2011 Blood Pressure 1: 112/74 Code: 8480-6 BMI: 31.0 Code: 35994-5 Heart Rate 1: 72 bpm Height: 5'7" [...] 1: 128/92 Code: 8480-6 BMI: 33.6 Code: 01614-2 Heart Rate 1: 104 bpm Height: 5'4" [...] Diagnosis: Mixed hyperlipidemia[ICD10: E78.2] María Elena APPIAH [employer] CPT-4: 17683 09/29/2019 ([id number]) OFFICE/OUTPATIENT VISIT EST Diagnosis: Essential (primary) hypertension[ICD10: I10] Diagnosis: Fall from bed, sequela[ICD10: W06.XXXS] María Elena APPIAH DO [employer] CPT-4: 30670 05/28/2019 ([id number]) NURSE/OUTPATIENT VISIT EST Diagnosis: Essential (primary) hypertension[ICD10: I10] María Elena APPIAH DO [facility] CPT-4: 36772 05/19/2019 ([id number]) OFFICE/OUTPATIENT VISIT EST Diagnosis: Essential (primary) hypertension[ICD10: I10] Diagnosis: Type 2 diabetes mellitus with hyperglycemia[ICD10: E11.65] Diagnosis: Intervertebral disc disorders with radiculopathy, 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] Diagnosis: Hormone replacement therapy[ICD10: Z79.890] María Elena APPIAH DO [facility] CPT-4: 73487 01/22/2019 ([id number]) OFFICE/OUTPATIENT VISIT EST Diagnosis: Essential (primary) hypertension[ICD10: I10] Diagnosis: Type 2 diabetes mellitus with hyperglycemia[ICD10: E11.65] María Elena APPIAH [employer] [facility] CPT-4: 15347 09/30/2018 ([id number]) OFFICE/OUTPATIENT VISIT EST Diagnosis: Pain in left elbow[ICD10: M25.522] Diagnosis: Acute stress reaction[ICD10: F43.0] Diagnosis: Primary insomnia[ICD10: F51.01] Diagnosis: Abnormal weight gain[ICD10: R63.5] María Elena APPIAH [employer] [facility] CPT-4: 99146 08/27/2018 ([id number]) OFFICE/OUTPATIENT VISIT EST Diagnosis: Acute recurrent sinusitis, unspecified[ICD10: J01.91] Diagnosis: Follicular disorder, unspecified[ICD10: L73.9] Diagnosis: Tinea corporis[ICD10: B35.4] María Elena APPIAH [employer] [facility] CPT-4: 36330 08/09/2018 ([id number]) OFFICE/OUTPATIENT VISIT EST Diagnosis: Tinea corporis[ICD10: B35.4] Diagnosis: Anxiety disorder, unspecified[ICD10: F41.9] Diagnosis: Menopausal and female climacteric states[ICD10: N95.1] María Elena APPIAH [employer] [facility] CPT-4: 02534 07/22/2018 ([id number]) NURSE/OUTPATIENT VISIT EST Diagnosis: Cellulitis of right toe[ICD10: L03.031] María Elena APPIAH DO [facility] CPT-4: 45513 06/19/2018 ([id number]) OFFICE/OUTPATIENT VISIT EST Diagnosis: Cellulitis of right toe[ICD10: L03.031] Kathleen APPIAH DO [facility] CPT-4: 61896 06/17/2018 ([id number]) OFFICE/OUTPATIENT VISIT EST Diagnosis: Migraine without aura, intractable, without status migrainosus[ICD10: G43.019] Diagnosis: Zoster without complications[ICD10: B02.9] Kathleen APPIAH DO [facility] CPT-4: 96837 05/16/2018 ([id number]) OFFICE/OUTPATIENT VISIT EST Diagnosis: Cellulitis of right lower limb[ICD10: L03.115] Kathleen APPIAH DO [facility] CPT-4: 51542 03/20/2018 ([id number]) OFFICE/OUTPATIENT VISIT EST Diagnosis: Cellulitis of right lower limb[ICD10: L03.115] Kathleen APPIAH DO [facility] CPT-4: 54086 03/18/2018 ([id number]) OFFICE/OUTPATIENT VISIT EST Diagnosis: Cellulitis of right lower limb[ICD10: L03.115] Kathleen APPIAH DO [facility] CPT-4: 04186 03/15/2018 ([id number]) OFFICE/OUTPATIENT VISIT EST Diagnosis: Acute sinusitis, unspecified[ICD10: J01.90] Kathleen APPIAH DO [facility] CPT-4: 82153 02/11/2018 ([id number]) NURSE/OUTPATIENT VISIT EST Diagnosis: Otitis media, unspecified, right ear[ICD10: H66.91] María Elena APIPAH DO [facility] CPT-4: 99742 02/01/2018 ([id number]) OFFICE/OUTPATIENT VISIT EST Diagnosis: Acute suppurative otitis media without spontaneous rupture of ear drum, left ear[ICD10: H66.002] Diagnosis: Abnormal weight gain[ICD10: R63.5] Diagnosis: Intervertebral disc disorders with radiculopathy, 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] Kathleen APPIAH DO [facility] CPT-4: 99 214 01/30/2018 ([id number]) PREV VISIT EST AGE 40-64 Diagnosis: Encounter for general adult medical examination without abnormal findings[ICD10: Z00.00] Diagnosis: Essential (primary) hypertension[ICD10: I10] Diagnosis: Mixed hyperlipidemia[ICD10: E78.2] Diagnosis: Type 2 diabetes mellitus with hyperglycemia[ICD10: E11.65] Diagnosis: 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] María Elena ELLISLINE Fabiola APPIAH [employer] [facility] CPT-4: 45376 12/18/2017 ([id number]) OFFICE/OUTPATIENT VISIT EST Diagnosis: Cellulitis of right toe[ICD10: L03.031] Diagnosis: Mixed hyperlipidemia[ICD10: E78.2] Diagnosis: Essential (primary) hypertension[ICD10: I10] Diagnosis: Hyperglycemia, unspecified[ICD10: R73.9] Diagnosis: Nontoxic goiter, 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] María Elena Seamusdawn MARÍA ELENA Fabiola APPIAH [employer] [facility] CPT-4: 78801 12/10/2017 ([id number]) OFFICE/OUTPATIENT VISIT EST Diagnosis: Cellulitis of right toe[ICD10: L03.031] Diagnosis: Acute sinusitis, unspecified[ICD10: J01.90] Kathleen APPIAH DO [facility] CPT-4: 39934 12/07/2017 OFFICE/OUTPATIENT VISIT EST Diagnosis: Acute maxillary sinusitis, unspecified[ICD10: J01.00] Kathleen APPIAH [employer] [facility] CPT-4: 84653 10/08/2017 ([id number]) OFFICE/OUTPATIENT VISIT EST Diagnosis: Cellulitis of left toe[ICD10: L03.032] María Elena MARIN Fabiola APPIAH [employer] [facility] CPT-4: 80282 09/21/2017 ([id number]) OFFICE/OUTPATIENT VISIT EST Diagnosis: Insomnia, unspecified[ICD10: G47.00] Diagnosis: Major depressive disorder, single episode, unspecified[ICD10: F32.9] Diagnosis: Anxiety disorder, unspecified[ICD10: F41.9] Diagnosis: Cellulitis of left toe[ICD10: L03.032] Diagnosis: Snoring[ICD10: R06.83] Kathleen APPIAH DO [facility] CPT-4: 92020 09/20/2017 ([id number]) OFFICE/OUTPATIENT VISIT EST Diagnosis: Cellulitis of left toe[ICD10: L03.032] María Elena Seamusdawn MARLIN APPIAH [facility] CPT-4: 73841 07/19/2017 OFFICE/OUTPATIENT VISIT EST Diagnosis: Chronic sinusitis, unspecified[ICD10: J32.9] Diagnosis: Generalized hyperhidrosis[ICD10: R61] Kathleen ORTA [employer] [facility] CPT-4: 36744 06/27/2017 ([id number]) OFFICE/OUTPATIENT VISIT EST Diagnosis: Intervertebral disc disorders with radiculopathy, 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] Diagnosis: Primary insomnia[ICD10: F51.01] Diagnosis: Other fatigue[ICD10: R53.83] María Elena ELLISLINE LucioJj TD [employer] [facility] CPT-4: 09792 04/10/2017 ([id number]) OFFICE/OUTPATIENT VISIT EST Diagnosis: Primary insomnia[ICD10: F51.01] Diagnosis: Localized edema[ICD10: R60.0] Diagnosis: 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] María Elena Seamusdawn MARÍA ELENA LucioJj TD [employer] [facility] CPT-4: 20906 12/13/2016 ([id number]) OFFICE/OUTPATIENT VISIT EST Diagnosis: Primary insomnia[ICD10: F51.01] Diagnosis: Cyanosis[ICD10: R23.0] María Elena Seamusdawn MONTEROMARÍA ELENA LucioJj CIRO Bazzi [employer] [facility] CPT-4: 47065 11/01/2016 ([id number]) PREV VISIT EST AGE 40-64 Diagnosis: Encounter for gynecological examination (general) (routine) without abnormal findings[ICD10: Z01.419] Diagnosis: Encounter for routine child health examination without abnormal findings[ICD10: Z00.129] María Elena APPIAH DO [facility] CPT-4: 67391 10/17/2016 ([id number]) OFFICE/OUTPATIENT VISIT EST Diagnosis: Other seasonal allergic rhinitis[ICD10: J30.2] María Elena APPIAH DO [facility] CPT-4: 23427 10/10/2016 ([id number]) OFFICE/OUTPATIENT VISIT EST Diagnosis: Pain in left arm[ICD10: M79.602] Diagnosis: Contact with and (suspected) exposure to potentially hazardous body fluids[ICD10: Z77.21] Diagnosis: 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, 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] Diagnosis: Unspecified open wound, right foot, sequela[ICD10: S91.301S] María Elena APPIAH DO [facility] CPT-4: 53240 09/19/2016 ([id number]) OFFICE/OUTPATIENT VISIT EST Diagnosis: Chronic sinusitis, unspecified[ICD10: J32.9] Diagnosis: Allergic rhinitis due to pollen[ICD10: J30.1] María Elena APPIAH DO [facility] CPT-4: 33277 08/24/2016 ([id number]) OFFICE/OUTPATIENT VISIT EST Diagnosis: Acute bronchitis, unspecified[ICD10: J20.9] María Elena APPIAH DO [facility] CPT-4: 57048 08/16/2016 ([id number]) OFFICE/OUTPATIENT VISIT EST Diagnosis: Otitis media, unspecified, right ear[ICD10: H66.91] Diagnosis: Acute bronchitis, unspecified[ICD10: J20.9] María Elena APPIAH DO [facility] CPT-4: 90519 08/10/2016 ([id number]) OFFICE/OUTPATIENT VISIT EST Diagnosis: Acute recurrent sinusitis, unspecified[ICD10: J01.91] Diagnosis: Allergic rhinitis due to pollen[ICD10: J30.1] María Elena APPIAH DO [facility] CPT-4: 39202 08/02/2016 ([id number]) OFFICE/OUTPATIENT VISIT EST Diagnosis: Pain in unspecified joint[ICD10: M25.50] María Elena APPIAH DO [facility] CPT-4: 99584 07/27/2016 OFFICE/OUTPATIENT VISIT EST Diagnosis: 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] Diagnosis: Acute recurrent sinusitis, unspecified[ICD10: J01.91] Diagnosis: Other fatigue[ICD10: R53.83] Diagnosis: Primary insomnia[ICD10: F51.01] Diagnosis: Pain in unspecified joint[ICD10: M25.50] María Elena APPIAH [employer] [facility] CPT-4: 72643 07/20/2016 ([id number]) OFFICE/OUTPATIENT VISIT EST Diagnosis: Blister (nonthermal), left great toe, initial encounter[ICD10: S90.422A] Loan APPIAH DO [facility] CPT-4: 85506 ([id number]) OFFICE/OUTPATIENT VISIT EST Diagnosis: Acute recurrent sinusitis, unspecified[ICD10: J01.91] María Elena APPIAH DO [facility] CPT-4: 09658 05/25/2016 ([id number]) OFFICE/OUTPATIENT VISIT EST Diagnosis: Acute sinusitis, unspecified[ICD10: J01.90] María Elena APPIAH DO [facility] CPT-4: 56058 04/26/2016 ([id number]) OFFICE/OUTPATIENT VISIT EST Diagnosis: Flushing[ICD10: R23.2] Diagnosis: Primary insomnia[ICD10: F51.01] María Elena APPIAH DO [facility] CPT-4: 98719 03/02/2016 ([id number]) OFFICE/OUTPATIENT VISIT EST Diagnosis: Other seasonal allergic rhinitis[ICD10: J30.2] Loan APPIAH DO [facility] CPT-4: 14729 02/09/2016 ([id number]) OFFICE/OUTPATIENT VISIT EST Diagnosis: Primary insomnia[ICD10: F51.01] Diagnosis: Urinary tract infection, site not specified[ICD10: N39.0] María Elena GODOYNDER [facility] CPT-4: 43516 01/24/2016 ([id number]) OFFICE/OUTPATIENT VISIT EST Diagnosis: Other specified disorders of Eustachian tube, bilateral[ICD10: H69.83] Diagnosis: Allergic rhinitis, unspecified[ICD10: J30.9] Loan APPIAH [facility] CPT-4: 96392 12/23/2015 ([id number]) OFFICE/OUTPATIENT VISIT EST Diagnosis: Acute recurrent sinusitis, unspecified[ICD10: J01.91] Diagnosis: 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] Diagnosis: Allergic rhinitis, unspecified[ICD10: J30.9] María Elena Td ELLISLINE Fabiola APPIAH [facility] CPT-4: 54312 12/08/2015 ([id number]) OFFICE/OUTPATIENT VISIT EST Diagnosis: Allergic rhinitis, unspecified[ICD10: J30.9] Diagnosis: Pain in unspecified joint[ICD10: M25.50] María Elena APPIAH [facility] CPT-4: 94869 10/07/2015 ([id number]) OFFICE/OUTPATIENT VISIT EST Diagnosis: Essential (primary) hypertension[ICD10: I10] María Elena Td ELLISLINE Fabiola APPIAH [facility] CPT-4: 04140 10/06/2015 OFFICE/OUTPATIENT VISIT EST Diagnosis: Localized enlarged lymph nodes[ICD10: R59.0] Diagnosis: Local infection of the skin and subcutaneous tissue, unspecified[ICD10: L08.9] June Flores MARÍA ELENA APPIAH [facility] CPT- 4: 30530 09/14/2015 ([id number]) OFFICE/OUTPATIENT VISIT EST Diagnosis: Essential (primary) hypertension[ICD10: I10] Diagnosis: Actinic keratosis[ICD10: L57.0] María Elena Td ELLISLINE Fabiola APPIAH [facility] CPT-4: 87485 09/07/2015 ([id number]) OFFICE/OUTPATIENT VISIT EST Diagnosis: Essential (primary) hypertension[ICD10: I10] Diagnosis: Acute stress reaction[ICD10: F43.0] María Elena COLON Fabiola APPIAH [facility] CPT-4: 21957 08/18/2015 ([id number]) OFFICE/OUTPATIENT VISIT EST Diagnosis: Essential (primary) hypertension[ICD10: I10] María Elena APPIAH DO [facility] CPT-4: 65331 07/07/2015 ([id number]) OFFICE/OUTPATIENT VISIT EST Diagnosis: Essential (primary) hypertension[ICD10: I10] María Elena APPIAH DO [facility] CPT-4: 43946 06/24/2015 ([id number]) OFFICE/OUTPATIENT VISIT EST Diagnosis: Essential (primary) hypertension[ICD10: I10] María Elena APPIAH DO [facility] CPT-4: 94815 06/21/2015 ([id number]) OFFICE/OUTPATIENT VISIT EST Diagnosis: Essential (primary) hypertension[ICD10: I10] Diagnosis: Mixed hyperlipidemia[ICD10: E78.2] Diagnosis: Acute stress reaction[ICD10: F43.0] Diagnosis: Primary insomnia[ICD10: F51.01] María Elena APPIAH DO [facility] CPT-4: 14997 06/16/2015 ([id number]) OFFICE/OUTPATIENT VISIT EST Diagnosis: INSOMNIA NOS[ICD9: 780.52] Diagnosis: HYPERTENSION[ICD9: 401.9] Diagnosis: Stress reaction[ICD9: 308.9] María Elena APPIAH DO [facility] CPT-4: 26486 06/02/2015 ([id number]) OFFICE/OUTPATIENT VISIT EST Diagnosis: HYPERTENSION[ICD9: 401.9] Diagnosis: Stress reaction[ICD9: 308.9] María Elena APPIAH DO [facility] CPT-4: 14793 05/20/2015 ([id number]) OFFICE/OUTPATIENT VISIT EST Diagnosis: Skin lesion[ICD9: 709.9] 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] María Elena APPIAH DO [facility] CPT-4: 45887 05/10/2015 ([id number]) OFFICE/OUTPATIENT VISIT EST Diagnosis: SINUSITIS, ACUTE[ICD9: 461.9] Diagnosis: ALLERGIC RHINITIS[ICD9: 477.9] Diagnosis: DERMATITIS NOS[ICD9: 692.9] María Elena REHMAN DO [facility] CPT-4: 37922 03/16/2015 OFFICE/OUTPATIENT VISIT EST Diagnosis: Otitis media[ICD9: 382.9] Diagnosis: SINUSITIS, ACUTE[ICD9: 461.9] June APPIAH [facility] CPT-4: 94652 09/11/2014 ([id number]) OFFICE/OUTPATIENT VISIT EST Diagnosis: HYPERLIPIDEMIA NEC/NOS[ICD9: 272.4] María Elena APPIAH DO [facility] CPT-4: 35835 08/31/2014 ([id number]) OFFICE/OUTPATIENT VISIT EST Diagnosis: - I - HYPERTENSION[ICD9: 401.9] Diagnosis: HYPERLIPIDEMIA NEC/NOS[ICD9: 272.4] María Elena APPIAH [facility] CPT-4: 75588 08/27/2014 ([id number]) OFFICE/OUTPATIENT VISIT EST Diagnosis: ABDOMINAL PAIN[ICD9: 789.00] Diagnosis: DYSPEPSIA[ICD9: 536.8] Diagnosis: Thoracic back pain[ICD9: 724.1] María Elena APPIAH [facility] CPT-4: 63481 07/21/2014 ([id number]) OFFICE/OUTPATIENT VISIT EST Diagnosis: ALLERGIC RHINITIS[ICD9: 477.9] María Elena [facility] CPT-4: 34780 07/15/2014 ([id number]) OFFICE/OUTPATIENT VISIT EST Diagnosis: EDEMA[ICD9: 782.3] Diagnosis: Chronic insomnia[ICD9: 780.52] María Elena [facility] CPT-4: 70765 05/18/2014 ([id number]) OFFICE/OUTPATIENT VISIT EST Diagnosis: Thyromegaly[ICD9: 240.9] Diagnosis: - I - HYPERTENSION[ICD9: 401.9] Diagnosis: ROUTINE MEDICAL EXAM[ICD9: V70.0] Diagnosis: EDEMA[ICD9: 782.3] María Elena [facility] CPT-4: 15033 05/14/2014 OFFICE/OUTPATIENT VISIT EST Diagnosis: BRONCHITIS, ACUTE[ICD9: 466.0] Diagnosis: SINUSITIS, ACUTE[ICD9: 461.9] María Elena [facility] CPT-4: 46977 04/21/2014 OFFICE/OUTPATIENT VISIT EST Diagnosis: SINUSITIS, ACUTE[ICD9: 461.9] June [facility] CPT-4: 40378 03/04/2014 ([id number]) OFFICE/OUTPATIENT VISIT EST Diagnosis: VACCINE FOR TDAP[ICD10: Z23] María Elena [facility] CPT-4: 68137 02/27/2014 ([id number]) OFFICE/OUTPATIENT VISIT EST Diagnosis: Seborrheic keratoses, inflamed[ICD9: 702.11] Diagnosis: ACTINIC KERATOSIS[ICD9: 702.0] Diagnosis: INSOMNIA NOS[ICD9: 780.52] María Elena [facility] CPT-4: 18721 01/13/2014 OFFICE/OUTPATIENT VISIT EST Diagnosis: 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] Diagnosis: ALLERGIC RHINITIS[ICD9: 477.9] Diagnosis: Serous otitis media[ICD9: 381.4] María Elena [facility] CPT-4: 97134 12/24/2013 ([id number]) OFFICE/OUTPATIENT VISIT EST Diagnosis: SINUSITIS, ACUTE[ICD9: 461.9] Diagnosis: ALLERGIC RHINITIS[ICD9: 477.9] Diagnosis: EUSTACHIAN TUBE DYSFUNCTION[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] María Elena [facility] CPT-4: 19271 11/12/2013 ([id number]) OFFICE/OUTPATIENT VISIT EST Diagnosis: ALLERGIC RHINITIS[ICD9: 477.9] Diagnosis: SINUSITIS, ACUTE[ICD9: 461.9] María Elena [facility] CPT-4: 26246 10/21/2013 ([id number]) OFFICE/OUTPATIENT VISIT EST Diagnosis: ASYMPTOMATIC VARICOSE VEINS[ICD9: 454.9] Diagnosis: INSOMNIA NOS[ICD9: 780.52] María Elena [facility] CPT-4: 49352 09/22/2013 OFFICE/OUTPATIENT VISIT EST Diagnosis: SINUSITIS, ACUTE[ICD9: 461.9] June APPIAH DO [facility] CPT-4: 46572 08/27/2013 ([id number]) OFFICE/OUTPATIENT VISIT EST Diagnosis: CEPHALGIA[ICD9: 784.0] Diagnosis: CEPHALGIA, TENSION[ICD9: 307.81] 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] María Elena APPIAH [facility] CPT-4: 13540 08/04/2013 ([id number]) OFFICE/OUTPATIENT VISIT EST Diagnosis: Cervicalgia[ICD9: 723.1] Diagnosis: SPASM OF MUSCLE[ICD9: 728.85] Diagnosis: CEPHALGIA, TENSION[ICD9: 307.81] María Elena APPIAH [facility] CPT-4: 41131 07/23/2013 ([id number]) OFFICE/OUTPATIENT VISIT EST Diagnosis: EUSTACHIAN TUBE DYSFUNCTION[ICD9: 381.81] Diagnosis: ALLERGIC RHINITIS[ICD9: 477.9] María Elena APPIAH [facility] CPT-4: 16317 06/23/2013 ([id number]) OFFICE/OUTPATIENT VISIT EST Diagnosis: ALLERGIC RHINITIS[ICD9: 477.9] Diagnosis: ACUTE SEROUS OTITIS MEDIA[ICD9: 381.01] Diagnosis: EUSTACHIAN TUBE DYSFUNCTION[ICD9: 381.81] María Elena APPIAH [facility] CPT-4: 99667 05/26/2013 ([id number]) OFFICE/OUTPATIENT VISIT EST Diagnosis: HYPERTENSION[ICD9: 401.9] Diagnosis: EDEMA[ICD9: 782.3] Diagnosis: Serous otitis media[ICD9: 381.4] María Elena APPIAH [facility] CPT-4: 09802 04/16/2013 ([id number]) OFFICE/OUTPATIENT VISIT EST Diagnosis: SINUSITIS, ACUTE[ICD9: 461.9] Diagnosis: ALLERGIC RHINITIS[ICD9: 477.9] Diagnosis: EDEMA[ICD9: 782.3] Diagnosis: Thyromegaly[ICD9: 240.9] Diagnosis: MALAISE AND FATIGUE[ICD9: 780.79] María Elena Lopez Fabiola APPIAH [facility] CPT-4: 96230 03/05/2013 ([id number]) OFFICE/OUTPATIENT VISIT EST Diagnosis: PAIN, LOWER BACK[ICD9: 724.2] Diagnosis: SPASM OF MUSCLE[ICD9: 728.85] María Elena JUARES LucioJj [facility] CPT-4: 33311 12/23/2012 OFFICE/OUTPATIENT VISIT EST Diagnosis: Low back pain[ICD9: 724.2] Lashawn Hicks [facility] CPT-4: 13288 12/16/2012 ([id number]) OFFICE/OUTPATIENT VISIT EST Diagnosis: PAIN, LOWER BACK[ICD9: 724.2] Diagnosis: SCIATICA[ICD9: 724.3] Diagnosis: Lumbar herniated disc[ICD9: 722.10] María Elena COLON LucioJj [facility] CPT-4: 02571 12/09/2012 ([id number]) OFFICE/OUTPATIENT VISIT EST Diagnosis: PAIN, LOWER BACK[ICD9: 724.2] Diagnosis: SCIATICA[ICD9: 724.3] Diagnosis: LUMBAR DISC DISPLACEMENT[ICD9: 722.10] María Elena MARIN LucioJj [facility] CPT-4: 58877 12/04/2012 OFFICE/OUTPATIENT VISIT EST Diagnosis: Pneumonia[ICD9: 486] Mary JUARES LucioJj [facility] CPT-4: 27529 11/22/2012 ([id number]) OFFICE/OUTPATIENT VISIT EST Diagnosis: PNEUMONIA, ORGANISM[ICD9: 486] Diagnosis: Exacerbation of RAD (reactive airway disease)[ICD9: 493.92] María Elena JUARES LucioJj [facility] CPT-4: 37686 11/21/2012 OFFICE/OUTPATIENT VISIT EST Diagnosis: HYPERTENSION[ICD9: 401.9] Diagnosis: Cephalgia[ICD9: 784.0] Lashawn Hicks TD GARIBAY [facility] CPT-4: 72268 10/29/2012 ([id number]) OFFICE/OUTPATIENT VISIT EST Diagnosis: MALAISE AND FATIGUE[ICD9: 780.79] Diagnosis: ARTHRALGIA-MULTIPLE SITES[ICD9: 719.49] María Elena APPIAH DO [facility] CPT-4: 08750 10/14/2012 ([id number]) OFFICE/OUTPATIENT VISIT EST Diagnosis: URINARY FREQUENCY[ICD9: 788.41] María Elena Seamusmindimaryjane ValdesJj TD GARIBAY [facility] CPT-4: 95623 09/27/2012 ([id number]) OFFICE/OUTPATIENT VISIT EST Diagnosis: MALAISE AND FATIGUE[ICD9: 780.79] Diagnosis: ARTHRALGIA-MULTIPLE SITES[ICD9: 719.49] María Elena Seamusmindimaryjane ValdesJj TD GARIBAY [facility] CPT-4: 17205 09/25/2012 ([id number]) OFFICE/OUTPATIENT VISIT EST Diagnosis: SINUSITIS, ACUTE[ICD9: 461.9] Diagnosis: 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] María Elena ValdesJj TD GARIBAY [facility] CPT-4: 64031 08/29/2012 OFFICE/OUTPATIENT VISIT EST Diagnosis: ACTINIC KERATOSIS[ICD9: 702.0] Diagnosis: Inflamed seborrheic keratosis[ICD9: 702.11] Diagnosis: Skin cancer of face[ICD9: 173.31] Diagnosis: HYPERTENSION[ICD9: 401.9] María Elenamarcella Appiah MARÍA ELENA LucioJj [facility] CPT-4: 83766 08/12/2012 ([id number]) OFFICE/OUTPATIENT VISIT EST Diagnosis: ARTHRALGIA-MULTIPLE SITES[ICD9: 719.49] Diagnosis: GOUT[ICD9: 274.9] Diagnosis: HYPERTENSION[ICD9: 401.9] Diagnosis: Tachycardia[ICD9: 785.0] María Elenamarcella JUARES LucioJj FRITZTaiwo BRADFORD [facility] CPT-4: 64128 05/06/2012 ([id number]) OFFICE/OUTPATIENT VISIT EST Diagnosis: INSOMNIA NOS[ICD9: 780.52] María Elena Hicks [facility] CPT-4: 99283 04/03/2012 ([id number]) OFFICE/OUTPATIENT VISIT EST Diagnosis: INSOMNIA NOS[ICD9: 780.52] Diagnosis: HYPERTENSION[ICD9: 401.9] Diagnosis: MIGRAINE NOS/NOT INTRCBL[ICD9: 346.90] María Elena MARIN LucioJj TD [facility] CPT-4: 23962 03/19/2012 ([id number]) OFFICE/OUTPATIENT VISIT EST Diagnosis: CELLULITIS[ICD9: 682.9] Diagnosis: Ankle pain[ICD9: 719.47] Diagnosis: HYPERTENSION[ICD9: 401.9] María Elena Hicks SEAMUS [facility] CPT-4: 98167 02/20/2012 ([id number]) OFFICE/OUTPATIENT VISIT EST Diagnosis: MIGRAINE NOS/NOT INTRCBL[ICD9: 346.90] Diagnosis: Vomiting[ICD9: 787.03] María Elena Hicks SEAMUSGALINA Bazzi [facility] CPT-4: 45495 01/30/2012 ([id number]) OFFICE/OUTPATIENT VISIT EST Diagnosis: EDEMA[ICD9: 782.3] Diagnosis: HYPERTENSION[ICD9: 401.9] Diagnosis: ALLERGIC RHINITIS[ICD9: 477.9] Diagnosis: ARTHRALGIA-MULTIPLE SITES[ICD9: 719.49] María Elena Hicks [facility] CPT-4: 43399 01/24/2012 ([id number]) OFFICE/OUTPATIENT VISIT EST Diagnosis: SPASM OF MUSCLE[ICD9: 728.85] Diagnosis: Thoracic back pain[ICD9: 724.1] Diagnosis: Cervical pain[ICD9: 723.1] María Elena Hicks KRISTYN MUMTAZ [facility] CPT-4: 37067 01/10/2012 OFFICE/OUTPATIENT VISIT EST Diagnosis: PAIN, LOWER BACK[ICD9: 724.2] Diagnosis: LUMBAR DISC DISPLACEMENT[ICD9: 722.10] María Elena MARIN LucioJj TD [facility] CPT-4: 55863 12/11/2011 OFFICE/OUTPATIENT VISIT EST Diagnosis: MIGRAINE NOS/NOT INTRCBL[ICD9: 346.90] Diagnosis: SINUSITIS, ACUTE[ICD9: 461.9] María Elena APPIAH DO [facility] CPT-4: 08687 11/09/2011 OFFICE/OUTPATIENT VISIT EST Diagnosis: MIGRAINE NOS/NOT INTRCBL[ICD9: 346.90] Diagnosis: LYMPHADENOPATHY[ICD9: 785.6] María Elena APPIAH DO [facility] CPT-4: 11286 09/13/2011 OFFICE/OUTPATIENT VISIT EST Diagnosis: MALAISE AND FATIGUE[ICD9: 780.79] Diagnosis: ARTHRALGIA-MULTIPLE SITES[ICD9: 719.49] María Elena APPIAH DO [facility] CPT-4: 17835 08/31/2011 OFFICE/OUTPATIENT VISIT EST Diagnosis: SINUSITIS, ACUTE[ICD9: 461.9] María Elena APPIAH DO [facility] CPT-4: 37396 07/20/2011 OFFICE/OUTPATIENT VISIT EST Diagnosis: HYPERTENSION[ICD9: 401.9] Diagnosis: PAIN, LOWER BACK[ICD9: 724.2] Diagnosis: SPASM OF MUSCLE[ICD9: 728.85] María Elena APPIAH DO [facility] CPT-4: 79769 07/06/2011 OFFICE/OUTPATIENT VISIT EST Diagnosis: MIGRAINE NOS/NOT INTRCBL[ICD9: 346.90] Diagnosis: HYPERTENSION[ICD9: 401.9] María Elena SEYMOUR [facility] CPT-4: 49175 05/22/2011 OFFICE/OUTPATIENT VISIT EST Diagnosis: SINUSITIS, ACUTE[ICD9: 461.9] Diagnosis: MIGRAINE NOS/NOT INTRCBL[ICD9: 346.90] Diagnosis: Dehydration[ICD9: 276.51] Diagnosis: Vomiting[ICD9: 787.03] María Elena Seamusmindimaryjane ELLISMARÍA ELENA LucioJj CIRO Bazzi [facility] CPT-4: 99203 05/09/2011 ([id number]) OFFICE/OUTPATIENT VISIT EST María Elena Td [facility] CPT-4: 03962 02/14/2011 ([id number]) OFFICE/OUTPATIENT VISIT EST María Elena Seamusmindimaryjane MARLIN CulverJARED APPIAH [facility] CPT-4: 73698 02/03/2011 ([id number]) OFFICE/OUTPATIENT VISIT EST María Elena [facility] CPT-4: 79666 01/31/2011 ([id number]) OFFICE/OUTPATIENT VISIT EST María Elena [facility]AAC [facility] CPT-4: 96280 01/25/2011 ([id number]) OFFICE/OUTPATIENT VISIT EST María Elena ISAAC [facility] CPT-4: 93366 01/18/2011 ([id number]) OFFICE/OUTPATIENT VISIT EST María Elena ISAAC [facility] CPT-4: 51313 11/29/2010 ([id number]) OFFICE/OUTPATIENT VISIT, EST María Elena MONTERO [facility] CPT-4: 13426 10/10/2010 ([id number]) OFFICE/OUTPATIENT VISIT, EST María Elena MONTERO [facility] CPT-4: 73551 06/07/2010 ([id number]) OFFICE/OUTPATIENT VISIT, EST María Elena MONTERO [facility] CPT-4: 90765 04/27/2010 ([id number]) OFFICE/OUTPATIENT VISIT, EST María Elena MONTERO [facility] CPT-4: 05897 04/05/2010 ([id number]) OFFICE/OUTPATIENT VISIT, EST María Elena MONTERO [facility] CPT-4: 21071 03/09/2010 ([id number]) OFFICE/OUTPATIENT VISIT, EST María Elena [facility] CPT-4: 80399 03/03/2010 ([id number]) OFFICE/OUTPATIENT VISIT, EST María Elena [facility] CPT-4: 69618 01/17/2010 ([id number]) PREV VISIT, EST, AGE 40-64 María Elena [facility]MAN [facility] CPT-4: 27874 12/27/2009 Plan of Care Planned Activity Notes Codes Status Date Appointment: María Elena Appiah WPtel: [address] [place], [place] [phone] [place] Won't have the new insurance till [...] W06.XXXS 05/28/2019 Appointment: María Elena Appiah WPtel: [address] [place], [place] [phone] [place] FOLLOW UP 05/28/2019 Appointment: María Elena Appiah WPtel: [address] [place], [place] [address] [place] BP CHECK 05/19/2019 Visit Diagnosis Plan: [...] 01/22/2019 Appointment: María Elena Appiah WPtel: [address] [place], [place] [phone] [place] FOLLOW UP 01/22/2019 Patient Education: estradiol- [employer] Coupon [id number] [email or web address]/resources/getResource/61/770k882d-[email or web address] Completed 01/22/2019 Appointment: María Elena Appiah WPtel: [address] [place] [address] [place] CANCELED 01/20/2019 Appointment: María Elena Appiah WPtel: [address] [place] [address] [place] LM NO SHOW 01/06/2019 Appointment: María Elena Appiah WPtel: [address] [place] [address] [place] CANCELED 10/17/2018 Appointment: María Elena Appiah WPtel: [address] [place] [address] [place] BP CHECK 10/09/2018 Visit Diagnosis Plan: [...] I10 09/30/2018 Appointment: María Elena Appiah WPtel: [address] [place] [address] [place] FOLLOW UP 09/30/2018 Visit Diagnosis Plan: [...] 08/27/2018 Appointment: María Elena Appiah WPtel: [address] [place] [address] [place] ACUTE ILLNESS 08/27/2018 Appointment: María Elena Appiah WPtel: [address] [place], [place] [phone] [place] Patient stated she went out to [...] Tyle... 08/09/2018 Appointment: María Elena Appiah WPtel: [address] [place] [address] ACUTE ILLNESS 08/09/2018 Appointment: María Elena Appiah WPtel: [address] [place], [place] [phone] NO SHOW 08/08/2018 Visit Diagnosis Plan: Anxiety [...] 07/22/2018 Appointment: María Elena Appiah WPtel: [address] [place], [place] [phone] ACUTE ILLNESS 07/22/2018 Appointment: María Elena Appiahl: [address] [id number] [place] INJECTION 06/19/2018 Patient Education: Patient Medication [...] ICD-10 : L03.031 06/17/2018 Appointment: Kathleen Zuniga [address] [place] [address] ACUTE ILLNESS 06/17/2018 Patient Education: Patient Medication [...] ICD-10 : B02.9 05/16/2018 Appointment: Kathleen Zuniga [address] [place], [place] [phone] ACUTE ILLNESS 05/16/2018 Patient Education: Patient Medication [...] : L03.115 03/20/2018 Appointment: Kathleen Zuniga [address] [place], [place] [address] FOLLOW UP 03/20/2018 Patient Education: Patient Medication [...] ICD-10 : L03.115 03/18/2018 Appointment: Kathleen Zuniga [address] [place] [address] FOLLOW UP 03/18/2018 Patient Education: Patient Medication [...] ICD-10 : L03.115 03/15/2018 Appointment: Kathleen Zuniga [address] [place], [place] [address] ACUTE ILLNESS 03/15/2018 Patient Education: Patient Medication [...] ICD-10 : J01.90 02/11/2018 Appointment: Kathleen Zuniga [address] [place], [place] [address] ACUTE ILLNESS 02/11/2018 Patient Education: Patient Medication Summary Completed 02/11/2018 Appointment: María Elena Appiah WPtel: [phone] [facility] [place] INJECTION 02/01/2018 Patient Education: Patient Medication [...] : M51.16 01/30/2018 Appointment: Kathleen Zuniga [address] [place], [place] [address] ACUTE ILLNESS 01/30/2018 Patient [...] 12/18/2017 Appointment: María Elena Appiah WPtel: [phone] Annual Well Visit 12/18/2017 Patient Education: Patient Medication Summary Completed 12/18/2017 Care Plan: Referral Order SNOMED-CT : [id number] Pending 12/18/2017 Appointment: María Elena Appiah WPtel: [phone] [place] [address] [place] INJECTION 12/10/2017 Patient Education: Patient Medication [...] : L03.031 12/07/2017 Appointment: Kathleen Zuniga [address] [place] [address] ACUTE ILLNESS 12/07/2017 Patient Education: Patient Medication [...] : J01.00 10/08/2017 Appointment: Kathleen Zuniga [address] ACUTE ILLNESS 10/08/2017 Patient Education: Patient Medication Summary Completed 10/08/2017 Appointment: María Elena Appiah [facility]el[facility] [phone] [id number] [place] INJECTION 09/21/2017 Patient Education: Patient Medication [...] ICD-10 : R06.83 09/20/2017 Appointment: Kathleen Zuniga [address] [place], [place] [id number] ACUTE ILLNESS 09/20/2017 Patient Education: Patient Medication [...] : L60.0 08/29/2017 Appointment: Kathleen Zuniga [address] [place] [address] OFFICE SURGERY 08/29/2017 Patient Education: Patient Medication Summary Completed 08/29/2017 Visit Diagnosis Plan: Actinic keratosis Discussion: Cr yotherapy as above ICD-9 : 702.0 ICD-10 : L57.0 08/01/2017 Appointment: María Elena Appiah WPtel: [address] [place] [address] OFFICE SURGERY 08/01/2017 Patient Education: Patient Medication Summary Completed 08/01/2017 Appointment: María Elena Appiah WPtel: [address] [place] [address] PATIENT THOUGHT APPOINTMENT WAS TOMORROW 07/26/17 CALLED 15 MINUTES BEFORE APPT TO SAY SHE DIDN'T HAVE ANYONE TO COVER HER BUSINESS AND WOULD NOT MAKE IT NO SHOW 07/25/2017 Visit Diagnosis Plan: Cellulitis of left toe Discussio n: Clindamycin and notify if worsening or persistis ICD-9 : 681.10 ICD-10 : L03.032 07/19/2017 Appointment: María Elena Appiah WPtel: [address] [place], [place] [address] MEDICATION REVIEW 07/19/2017 Patient Education: Patient Medication Summary Completed 07/19/2017 Appointment: María Elena Appiah WPtel: [address] [place] [address] [place] CANCELED 07/04/2017 Visit Diagnosis Plan: Generalized hyperhidrosis Discus ian: CBC, CMP, TSH, free T4 ordered to assess. will review labs. ICD-9 : 780.8 ICD-10 : R61 06/27/2017 Visit Diagnosis Plan: Chronic sinusitis, unspecified D iscussion: Referral sent to dr. albarado in [place] per patient request. patient has been treated multiple times for sinus infections with no recovery. patient was seen by dr sanchez in the past with no interventions. patient has deviated septum which may be affecting her sinuses. 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, including hip Discussion: Shave removal of above lesio n--sent to pathology ICD-9 : 216.7 ICD-10 : D23.72 01/24/2017 Appointment: María Elena Appiah WPtel: [address] [place], [place] [phone] 01/23 confirmed ~sl OFFICE SURGERY 01/24/2017 Patient Education: Patient Medication Summary Completed 01/24/2017 Appointment: Loan Sánchez [address] [place], [place] [phone] 01/09 rescheduled~sl RESCHEDULED 01/15/2017 Visit Diagnosis [...] 12/13/2016 Appointment: María Elena Appiah WPtel: [address] [place], [place] [phone] 12/12 confirmed ~sl MEDICATION REVIEW 12/13/2016 Patient Education: Patient Medication Summary Completed 12/13/2016 Appointment: María Elena Appiah WPtel: [address] [place], [place] [id number] [place] rescheduled for 12/13/16 at 11am RESCHEDULED 0 12/06/2016 Appointment: María Elena Appiah WPtel: [address] [place], [place] [id number] [place] CANCELED 11/23/2016 Patient Education: Patient Medication [...] F51.01 11/01/2016 Appointment: María Elena Appiah WPtel: [address] [place], [place] [id number] [place] 10/31 lm `sl 11/01 lm`sl MEDICATION REVIEW 017 Patient Education: Patient Medication Summary Completed 11/01/2016 Referral: Canelo Overton WPtel: [phone] [id number] Referral Initiated 10/30/2016 Visit Diagnosis Plan: Encounter [...] Z01.419 10/17/2016 Appointment: María Elena Appiah WPtel: [address] [place], [place] [id number] 10/16 confirmed ~sl PAP 10/17/2016 Patient Education: Patient Medication Summary Completed 10/17/2016 Care Plan: MAMMOGRAM SCREENING LOINC : 2 6347-5 Pending 10/17/2016 Visit Diagnosis Plan: Other seasonal allergic rhinitis Discussion: Decadron/Garamycin Nasal [place] Mix Too soon for steroid Retry zyrtec 10mg daily ICD-9 : 477.9 ICD-10 : J30.2 10/10/2016 Appointment: María Elena Appiah WPtel: [address] [place], [place] [phone] [place] FOLLOW UP 10/10/2016 Patient Education: Patient Medication Summary Completed 10/10/2016 Appointment: María Elena Appiah WPtel: [address] [place], [place] [phone] 10/02 reschedule `sl RESCHEDULED 10/02/2016 Visit Plan: See surgery for removal of n ew left arm lesion and right foot lesion Lyrica to use next month for left arm paresthesias Continue current meds Discussed sunscreen/sunblock combo 09/19/2016 Appointment: María Elena Appiahl: [address] [place] [address] 09/18 confirmed ~sl FOLLOW UP 09/19/2016 Patient Education: Patient Medication Summary Completed 09/19/2016 Patient Education: Patient Medication Summary Completed 09/18/2016 Care Plan: MAMMOGRAM BOTH BREASTS LOINC : 78543-0 Pending 09/18/2016 Visit Plan: Discussed that needs [...] sinuses 08/24/2016 Appointment: María Elena Appiah WPtel: [address] [place] [address] ACUTE ILLNESS 08/24/2016 Patient Education: Patient Medication Summary Completed 08/24/2016 Patient Education: Patient Medication Summary Completed 08/23/2016 Care Plan: MAMMOGRAM SCREENING LOINC : 2 6347-5 Pending 08/23/2016 Visit Plan: Finish doxycycline Add Breo 100/25 1 p BID for 2 weeks If not improving within next 2 days will get CXR 08/16/2016 Appointment: María Elena Appiah WPtel: [address] [place] [address] ACUTE ILLNESS 08/16/2016 Patient Education: Patient Medication Summary Completed 08/16/2016 Visit Plan: Supportive care. Rest, Fluid s, Tylenol/Motrin prn fever or bodyaches. Notify if worsening symptoms. Doxycyline and Prednisone 08/10/2016 Appointment: María Elena Appiah WPtel: [address] [place] [address] 08/09 lm`sl....confirmed-sp FOLLOW UP 09/2015 Patient Education: Patient Medication Summary Completed 08/10/2016 Visit Plan: Saline nasal flushes prn. Ty lenol/Motrin prn headache. Notify if persists/symptoms worsening. Dexamethasone 8mg IM today May use coricedan and mucinex 08/02/2016 Appointment: María Elena Appiah WPtel: [address] [place] [address] ACUTE ILLNESS 08/02/2016 Patient Education: Patient Medication Summary Completed 08/02/2016 Visit Plan: Cryotherapy as above and lef t forearm lesion removal as above with 5-0 punch biopsy and sent to path Return in 10 days for suture removal 08/01/2016 Appointment: María Elena Appiah WPtel: [address] [place], [place] [phone] 07/31 confirmed`~sl OFFICE SURGERY 08/01/2016 Patient Education: Patient Medication Summary Completed 08/01/2016 Visit Plan: Stop clindamycin Check CBC, CMP, ESR now/STAT 07/27/2016 Appointment: María Elena Appiah WPtel: [address] [place] [address] ACUTE ILLNESS 07/27/2016 Patient Education: Patient Medication Summary Completed 07/27/2016 Visit Plan: Update lab and check ABIs to start with Will likely need cardiology evaluation to rule out PVD Clindamycin for 10 days Daily yogurt or probiotic Will return for removal of left arm lesions 07/20/2016 Appointment: María Elena Appiah WPtel: [address] [place] [address] ACUTE ILLNESS 07/20/2016 Patient Education: Patient Medication Summary Completed 07/20/2016 Patient Education: Patient Medication Summary Completed 07/20/2016 Care Plan: MAMMOGRAM BOTH BREASTS LOINC : 15233-2 Pending 07/20/2016 Care Plan: US EXAM CHEST LOINC : 50876-0 Pending 07/20/2016 Visit Plan: Wound culture collected from left great toe Appearance is somewhat staph like Rx as above Wound cleanser and skin care reviewed May need to add oral antibiotic if sores do not heal or continue to reoccur 07/06/2016 Appointment: Loan Sánchez [address] [place] [address] ACUTE ILLNESS 07/06/2016 Patient Education: Patient Medication Summary Completed 07/06/2016 Appointment: María Elena Appiah WPtel: [address] [place] [address] [place] INJECTION 05/25/2016 Patient Education: Patient Medication Summary Completed 05/25/2016 Visit Plan: Saline nasal flushes prn. Ty lenol/Motrin prn headache. Notify if persists/symptoms worsening. Dexamethasone and Rocephin given 04/26/2016 Appointment: María Elena Appiah WPtel: [address] [place] [address] ACUTE ILLNESS 04/26/2016 Patient Education: Patient Medication Summary Completed 04/26/2016 Visit Plan: Check CBC, CMP, TSH, FreeT4, HbA1C, estradiol, lipids in AM 03/02/2016 Appointment: María Elena Appiah WPtel: [address] [place] [address] 03/01 lm~sl ACUTE ILLNESS 03/02/2016 Patient Education: Patient Medication Summary Completed 03/02/2016 Visit Plan: Exam is nearly normal Needs to be taking daily antihistamine Would prefer to use oral steroids instead of shot but patient insist that oral steroids cause horrible headaches for her Will given kenalog IM instead 02/09/2016 Appointment: Loan Sánchez [address] [place] [address] ACUTE ILLNESS 02/09/2016 Patient Education: Patient Medication Summary Completed 02/09/2016 Visit Plan: Culture urine Macrobid DC xa nax Trial of Ativan 1mg q HS 01/24/2016 Appointment: María Elena Appiah WPtel: [address] [place] [address] ACUTE ILLNESS 01/24/2016 Patient Education: Patient Medication Summary Completed 01/24/2016 Visit Plan: No steroid or rocephin injec tion warranted Can have oral prednisone Continue current home regimen Needs to follow up with Dr Sanchez if problems persist 12/23/2015 Appointment: Loan Sánchez [address] [place] [address] ACUTE ILLNESS 12/23/2015 Patient Education: Patient Medication Summary Completed 12/23/2015 Visit Plan: Saline nasal flushes prn. Ty lenol/Motrin prn headache. Notify if persists/symptoms worsening. Kenalog 40mg IM today 12/08/2015 Appointment: María Elena Appiah WPtel: [address] [place] [address] 12/06 confirmed~sl ACUTE ILLNESS 12/08/2015 Patient Education: Patient Medication Summary Completed 12/08/2015 Appointment: María Elena Appiah WPtel: [address] [place] [address] ACUTE ILLNESS 11/18/2015 Patient Education: Patient Medication Summary Completed 10/11/2015 Appointment: María Elena Appiah WPtel: [address] [place] [address] [place] INJECTION 10/07/2015 Patient Education: Patient Medication Summary Completed 10/07/2015 Visit Plan: Check renal arterial doppler s and ECHO Change amlodopine to lotrel 5/20mg q HS Will need stress test as well Check CMP, uric acid, ESR 10/06/2015 Appointment: María Elena Appiah WPtel: [address] [place] [address] ACUTE ILLNESS 10/06/2015 Patient Education: Patient Medication Summary Completed 10/06/2015 Patient Education: [facility] - [employer] - Amlodipine Besylate - 18-64 - Dynamic Portal ID Completed 10/06/2015 Appointment: María Elena Appiah WPtel: [address] [place] [address] FOLLOW UP 09/22/2015 Visit Plan: Cephalexin 500 mg PO bid Mery ly topical Mupirocin to lesions on left lateral neck and face Follow-up in one week. Sooner if symptoms worsen 09/14/2015 Appointment: June Flores WPtel: [address] [place] [address] ACUTE ILLNESS 09/14/2015 Patient Education: Patient Medication Summary Completed 09/14/2015 Visit Plan: Change bystolic to bedtime d osing and amlodopine to morning dosing Cryotherapy as above to AKs 09/07/2015 Appointment: María Elena Appiah WPtel: [address] [place] [address] 09/06 appointment made and confirmed ~sl FOLLOW UP 09/07/2015 Patient Education: Patient Medication Summary Completed 09/07/2015 Visit Plan: Increase bystolic back to 20 mg daily but will split and take 10mg in AM and 10mg in PM Stress Reducers 08/18/2015 Appointment: María Elena Appiah WPtel: [address] [place], [place] [id number] 08/17/15 appt confirmed cn ACUTE ILLNESS 08/18 Patient Education: Patient Medication Summary Completed 08/18/2015 Appointment: María Elena Appiah WPtel: [address] [place] [address] BP CHECK 07/07/2015 Patient Education: Patient Medication Summary Completed 07/07/2015 Appointment: María Elena Appiah WPtel: [address] [place] [address] BP CHECK 06/24/2015 Patient Education: Patient Medication Summary Completed 06/24/2015 Appointment: María Elena Appiah WPtel: [address] [place] [address] BP CHECK 06/21/2015 Patient Education: Patient Medication Summary Completed 06/21/2015 Visit Plan: Lab discussed Continue curre nt meds and lifestyle modification Recheck lab in 6mos 06/16/2015 Appointment: María Elena Appiah WPtel: [address] [place] [address] 06/15 confirmed FOLLOW UP 06/16/2015 Patient Education: Patient Medication Summary Completed 06/16/2015 Patient Education: Patient Medication Summary Completed 06/15/2015 Visit Plan: Increase cymbalta to 60mg q HS Keep clonidine at current dose Recheck 2weeks Change xanax to klonopin 06/02/2015 Appointment: María Elena Appiah WPtel: [address] [place], [place] [phone] 06/02 lm FOLLOW UP 06/02/2015 Patient Education: Patient Medication Summary Completed 06/02/2015 Appointment: María Elena Appiah WPtel: [address] [place] [address] ACUTE ILLNESS 05/24/2015 Visit Plan: Increase clonidine to 0.2mg q HS Add cymbalta 30mg q HS Recheck 2weeks Stress Reducers Check fasting lab Discussed sleep study 05/20/2015 Appointment: María Elena Appiah WPtel: [address] [place] [address] ACUTE ILLNESS 05/20/2015 Patient Education: Patient Medication Summary Completed 05/20/2015 Patient Education: [facility] - [employer] - Cymbalta - 18-64 - Dynamic Portal ID Completed 05/20/2015 Appointment: María Elena Appiah WPtel: [address] [place] [address] BP CHECK 05/19/2015 Patient Education: Patient Medication Summary Completed 05/19/2015 Visit Plan: Topical Bactroban alternatin g with topical betamethasone Recheck 2weeks 05/10/2015 Appointment: María Elena Appiah WPtel: [address] [place], [place] [id number] 05/07 cn...05/07 appt confirmed OFFICE SURGER Y 05/10/2015 Patient Education: Patient Medication Summary Completed 05/10/2015 [facility]: [facility] [address] Referral Initiated 05/04/2015 Visit Plan: Saline nasal flushes prn. Ty lenol/Motrin prn headache. Notify if persists/symptoms worsening. Depomedrol 40mg IM today 03/16/2015 Appointment: María Elena Appiah WPtel: [address] [place] [address] ACUTE ILLNESS 03/16/2015 Patient Education: Patient Medication Summary Completed 03/16/2015 Appointment: María Elena Appiah WPtel: [address] [place] [address] ER Follow UP 03/09/2015 Visit Plan: Cryotherapy to lesions as ab ove 10/27/2014 Appointment: María Elena Appiah WPtel: [address] [place] [address] OFFICE SURGERY 10/27/2014 Patient Education: Patient Medication Summary Completed 10/27/2014 Appointment: June Flores WPtel: [address] [place] [address] ACUTE ILLNESS 09/11/2014 Patient Education: Patient Medication Summary Completed 09/11/2014 Visit Plan: Lab discussed Lipitor 10mg d aily Coenzyme Q-10 400mg daily Vitamin D3 5000u daily Recheck lipids with LFTs in 3mos then fwup 08/31/2014 Appointment: María Elena Appiah WPtel: [address] [place] [address] 08/28 voicemail FOLLOW UP 08/31/2014 Patient Education: Patient Medication Summary Completed 08/31/2014 Appointment: María Elena Appiah WPtel: [address] [place] [address] US LAB 08/27/2014 Appointment: María Elena Appiah WPtel: [address] [place], [place] [phone] [place] LAB 08/27/2014 Patient Education: Patient Medication Summary Completed 08/27/2014 Appointment: María Elena Appiah WPtel: [address] [place] [address] ACUTE ILLNESS 07/23/2014 Appointment: María Elena Appiah WPtel: [address] [place] [address] ACUTE ILLNESS 07/21/2014 Patient Education: Patient Medication Summary Completed 07/21/2014 Visit Plan: Kenalog 40mg IM today Contin ue narendra and singulair Add Flonase 07/15/2014 Appointment: María Elena Appiah WPtel: [address] [place], [place] [phone] ACUTE ILLNESS 07/15/2014 Appointment: María Elena Appiah WPtel: [address] [place], [place] [phone] ACUTE ILLNESS 07/15/2014 Patient Education: Patient Medication Summary Completed 07/15/2014 Visit Plan: Will do metolazone 2.5mg prn with 6 potassium and see if causes as severe cramping Trial of of seroquel XR 50mg q PM with evening meal and let us know how works 05/18/2014 Appointment: María Elena Appiah WPtel: [address] [place], [place] [phone] 05/15 left message FOLLOW UP 05/18/2014 Patient Education: Patient Medication Summary Completed 05/18/2014 Appointment: María Elena Appiah WPtel: [address] [place], [place] [phone] [place] LAB 05/14/2014 Patient Education: Patient Medication Summary Completed 05/14/2014 Appointment: María Elena Appiah WPtel: [address] [place], [place] [phone] [place] INJECTION 04/22/2014 Visit Plan: Tisha and Miranda today a nd finish abx given from urgent care 04/21/2014 Appointment: María Elena Appiah WPtel: [address] [place], [place] [phone] [place] INJECTION 04/21/2014 Patient Education: Patient Medication Summary Completed 04/21/2014 Appointment: June Flores WPtel: [address] [place], [place] [phone] ACUTE ILLNESS 03/04/2014 Patient Education: Patient Medication Summary Completed 03/04/2014 Appointment: María Elena Appiah WPtel: [address] [place], [place] [phone] [place] INJECTION 02/27/2014 Patient Education: Patient Medication Summary Completed 02/27/2014 Visit Plan: Cryotherapy as above to all lesions Patient wants to try no meds for insomnia for a while and see how goes 01/13/2014 Appointment: María Elena Appiah WPtel: [address] [place] [address] OFFICE SURGERY 01/13/2014 Patient Education: Patient Medication Summary Completed 01/13/2014 Visit Plan: Stop Melatonin Stop Soma Tri al of trazadone 75mg q HS See ENT for possible tubes as has had chronic ETD and serous otitis media with numerous steroids 12/24/2013 Appointment: María Elena Appiah WPtel: [address] [place] [address] ACUTE ILLNESS 12/24/2013 Patient Education: Patient Medication Summary Completed 12/24/2013 Visit Plan: Saline nasal flushes prn. Ty lenol/Motrin prn headache. Notify if persists/symptoms worsening. 11/12/2013 Appointment: María Elena Appiah WPtel: [address] [place] [address] ACUTE ILLNESS 11/12/2013 Patient Education: Patient Medication Summary Completed 11/12/2013 Appointment: María Elena Appiah WPtel: [address] [place] [address] ACUTE ILLNESS 10/21/2013 Patient Education: Patient Medication Summary Completed 10/21/2013 Visit Plan: Sleep hygiene and sleep rout ine Melatonin 10mg q HS Support stockings and observe 09/22/2013 Appointment: María Elena Appiah WPtel: [address] [place] [address] ACUTE ILLNESS 09/22/2013 Patient Education: Patient Medication Summary Completed 09/22/2013 Appointment: June Flores WPtel: [address] [place] [address] ACUTE ILLNESS 08/27/2013 Patient Education: Patient Medication Summary Completed 08/27/2013 Visit Plan: Proceed with CT scan of head /neck Proceed with occipital nerve injections Butrans 20mcg patch weekly until can get into see Dr. Mcdonough for injections 08/04/2013 Appointment: María Elena Appiahtel: [address] [place] [address] FOLLOW UP 08/04/2013 Patient Education: Patient Medication Summary Completed 08/04/2013 Visit Plan: OMT done Daily neck stretche s, moist heat Increase Celebrex to 200mg BID Add flexeril 07/23/2013 Appointment: María Elena Appiah WPtel: [address] [place] [address] 07/22 voicemail FOLLOW UP 07/23/2013 Patient Education: Patient Medication Summary Completed 07/23/2013 Appointment: María Elena Appiah WPtel: [address] [place] [address] ACUTE ILLNESS 06/23/2013 Patient Education: Patient Medication Summary Completed 06/23/2013 Appointment: María Elena Appiah WPtel: [address] [place] [address] ACUTE ILLNESS 05/26/2013 Patient Education: Patient Medication Summary Completed 05/26/2013 Visit Plan: Decrease clonidine to 0.1mg TID If BP remains stable consider decreasing amlodopine Prednisone for 5 days BP check in 1mo 04/16/2013 Appointment: María Elena Appiahtel: [address] [place] [address] 04/14 pt called and confirmed appt FOLLOW UP 04/16/2013 Patient Education: Patient Medication Summary Completed 04/16/2013 Appointment: María Elena Appiahtel: [address] [place] [address] ACUTE ILLNESS 03/05/2013 Patient Education: Patient Medication Summary Completed 03/05/2013 Visit Plan: Pt has MARIA ELENA on with Dr. Mcdonough Continue Butrans patch Refill Hydrocodone early tomorrow 12/23/2012 Appointment: María Elena Appiahtel: [address] [place] [address] FOLLOW UP 12/23/2012 Patient Education: Patient Medication Summary Completed 12/23/2012 Appointment: Lashawn Eckert WPtel: [address] [place] [address] ACUTE ILLNESS 12/16/2012 Patient Education: Patient Medication Summary Completed 12/16/2012 Visit Plan: Proceed with updated MRI of LS spine Continue gabapentin and add soma and diclofenac Will likely need to go for another epidural 12/09/2012 Appointment: María Elena Appiah WPtel: [address] [place] [address] ACUTE ILLNESS 12/09/2012 Patient Education: Patient Medication Summary Completed 12/09/2012 Visit Plan: Injection as above Finish me drol dose pack Chiropracter this afternoon 12/04/2012 Appointment: María Elena Appiah WPtel: [address] [place] [address] ACUTE ILLNESS 12/04/2012 Patient Education: Patient Medication Summary Completed 12/04/2012 Appointment: Mary Tillman WPtel: [address] [place] [address] FOLLOW UP 11/22/2012 Patient Education: Patient Medication Summary Completed 11/22/2012 Appointment: María Elena Appiah WPtel: [address] [place] [address] ACUTE ILLNESS 11/21/2012 Patient Education: Patient Medication Summary Completed 11/21/2012 Appointment: María Elena Appiah WPtel: [address] [place] [address] BP CHECK 11/07/2012 Patient Education: Patient Medication [...] BP re-check. 10/29/2012 Appointment: Lashawn Eckert WPtel: [address] [place] [address] ACUTE ILLNESS 10/29/2012 Patient Education: Patient Medication Summary Completed 10/29/2012 Appointment: María Elena Appiah WPtel: [address] [place] [address] ACUTE ILLNESS 10/14/2012 Patient Education: Patient Medication Summary Completed 10/14/2012 Appointment: María Elena Appiah WPtel: [address] [place] [address] 09/27/2012 Patient Education: Patient Medication Summary Completed 09/27/2012 Appointment: María Elena Appiah WPtel: [address] [place] [address] ACUTE ILLNESS 09/25/2012 Patient Education: Patient Medication Summary Completed 09/25/2012 Appointment: María Elena Appiah WPtel: [address] [place] [address] BP CHECK 09/24/2012 Appointment: María Elena Appiah WPtel: [address] [place] [address] ACUTE ILLNESS 08/29/2012 Patient Education: Patient Medication Summary Completed 08/29/2012 Visit Plan: Cryotherapy as above See Karlos m for right ear lesion--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 ACUTE ILLNESS 05/06/2012 Patient Education: Patient Medication Summary Completed 05/06/2012 Visit Plan: Pt wants to hold on any furt her sleep medications 04/03/2012 Appointment: María Elena Appiah WPtel: [address] [place] [address] FOLLOW UP 04/03/2012 Patient Education: Patient Medication Summary Completed 04/03/2012 Appointment: María Elena Appiah WPtel: [address] [place] [address] FOLLOW UP 03/19/2012 Patient Education: Patient Medication Summary Completed 03/19/2012 Appointment: María Elena Appiah WPtel: [address] [place] [address] BP CHECK 02/22/2012 Patient Education: Patient Medication Summary Completed 02/22/2012 Appointment: María Elena Appiah WPtel: [address] [place] [address] BP CHECK 02/21/2012 Patient Education: Patient Medication Summary Completed 02/21/2012 Visit Plan: Doxycycline and bactroban fo r foot Supportive care on ankles and knees Add norvasc for BP 02/20/2012 Appointment: María Elena Appiah WPtel: [address] [place] [address] ER Follow UP 02/20/2012 Patient Education: Patient Medication Summary Completed 02/20/2012 Appointment: María Elena Appiah WPtel: [address] [place] [address] ACUTE ILLNESS 01/30/2012 Patient Education: Patient Medication Summary Completed 01/30/2012 Appointment: María Elena Appiah WPtel: [address] [place] [address] ACUTE ILLNESS 01/24/2012 Patient Education: Patient Medication Summary Completed 01/24/2012 Visit Plan: Daily back stretches, moist heat, Biofreeze prn OMT done 01/10/2012 Appointment: María Elena Appiahtel: [address] [place] [address] ACUTE ILLNESS 01/10/2012 Patient Education: Patient Medication Summary Completed 01/10/2012 Appointment: María Elena Appiahtel: [address] [place] [address] FOLLOW UP 12/11/2011 Patient Education: Patient Medication Summary Completed 12/11/2011 Appointment: María Elena Appiahtel: [address] [place] [address] ACUTE ILLNESS 11/09/2011 Patient Education: Patient Medication Summary Completed 11/09/2011 Appointment: María Elena Appiahtel: [address] [place] [address] ACUTE ILLNESS 09/13/2011 Patient Education: Patient Medication Summary Completed 09/13/2011 Visit Plan: Check CBC, TSH, Free T4, CMP , ESR, Vit D, B12 now Start Prednisone today 08/31/2011 Appointment: María Elena Appiahtel: [address] [place] [address] ACUTE ILLNESS 08/31/2011 Patient Education: Patient Medication Summary Completed 08/31/2011 Appointment: María Elena Appiahtel: [address] [place] [address] [place] INJECTION 07/20/2011 Patient Education: Patient Medication Summary Completed 07/20/2011 Visit Plan: Continue current meds Monite r BP Cont stretches from PT 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 07/06/2011 Appointment: María Elena Appiahtel: [address] [place] [address] FOLLOW UP 07/06/2011 Patient Education: Patient Medication Summary Completed 07/06/2011 Appointment: María Elena Appiahtel: [address] [place], [place] [phone] BP CHECK 06/06/2011 Patient Education: Patient Medication Summary Completed 06/06/2011 Visit Plan: Add Bystolic at 2.5mg QAM Ad d Robaxin 750mg 2 po q HS BP check in 2wks 05/22/2011 Appointment: María Elena Appiah WPtel: [address] [place], [place] [phone] FOLLOW UP 05/22/2011 Patient Education: Patient Medication Summary Completed 05/22/2011 Appointment: María Elena Appiah WPtel: [address] [place], [place] [id number] ER Follow UP 05/09/2011 Patient Education: Patient Medication Summary Completed 05/09/2011 Appointment: María Elena Appiah WPtel: [address] [place] [address] FOLLOW UP 02/22/2011 Visit Plan: Rx written for Hydrocodone 1 0/325mg #240 See Ortho 02/14/2011 Appointment: María Elena Appiah WPtel: [address] [place], [place] [phone] OMT 02/14/2011 Patient Education: Patient [...] work. 02/03/2011 Appointment: Lashawn Eckert WPtel: [address] [place], [place] [phone] ACUTE ILLNESS 02/03/2011 Patient Education: Patient Medication Summary Completed 02/03/2011 Visit Plan: OMT done Cont daily stretche s 01/31/2011 Appointment: María Elena Appiahtel: [address] [place] [address] ACUTE ILLNESS 01/31/2011 Patient Education: Patient Medication Summary Completed 01/31/2011 Visit Plan: Continue pain meds OMT done Proceed with PT No work this summer01/25/2011 Appointment: María Elena Appiah WPtel: [address] [place] [address] ACUTE ILLNESS 01/25/2011 Patient Education: Patient Medication Summary Completed 01/25/2011 Visit Plan: Start PT Long discussion abo ut getting pain meds from only and can only have max of 4grams of tylenol per day Change to Hydrocodone 10/325mg 1- 2 po TID prn pain--#180 called to [place] 01/18/2011 Appointment: María Elena Appiah WPtel: [address] [place] [address] FOLLOW UP 01/18/2011 Patient Education: Patient Medication Summary Completed 01/18/2011 Visit Plan: Daily back stretches, moist heat, Biofreeze prn 11/29/2010 Appointment: María Elena Appiahtel: [address] [place] [address] ER Follow UP 11/29/2010 Patient Education: Patient Medication Summary Completed 11/29/2010 Visit Plan: Saline nasal flushes prn. Ty lenol/Motrin prn headache. Notify if persists/symptoms worsening. Finish augmentin Add Medrol Dose Pack 10/10/2010 Appointment: María Elena Appiahtel: [address] [place] [address] ACUTE ILLNESS 10/10/2010 Patient Education: Patient Medication Summary Completed 10/10/2010 Visit Plan: Cryotherapy x3 to multiple l esions on both forearms 07/19/2010 Appointment: María Elena Appiahtel: [address] [place], [place] [phone] [place] OFFICE SURGERY 07/19/2010 Patient Education: Patient Medication Summary Completed 07/19/2010 Appointment: María Elena Appiah WPtel: [address] [place], [place] [phone] [place] BP CHECK 07/06/2010 Patient Education: Patient Medication Summary Completed 07/06/2010 Appointment: María Elena Appiah WPtel: [address] [place] [phone] [place] BP CHECK 06/30/2010 Patient Education: Patient Medication Summary Completed 06/30/2010 Appointment: María Elena Appiah WPtel: [address] [place], [place] [phone] [place] BP CHECK 06/20/2010 Patient Education: Patient Medication Summary Completed 06/20/2010 Visit Plan: Change Diovan to Exforge 160 /5mg QD OMT done to thoracics BP check in 2wks 06/07/2010 Appointment: María Elena Appiah WPtel: [address] [place] [address] FOLLOW UP 06/07/2010 Patient Education: Patient Medication Summary Completed 06/07/2010 Appointment: María Elena Appiah WPtel: [address] [place], [place] [phone] [place] BP CHECK 06/03/2010 Patient Education: Patient Medication Summary Completed 06/03/2010 Appointment: María Elena Appiah WPtel: [address] [place], [place] [phone] [place] BP CHECK 06/01/2010 Patient Education: Patient Medication Summary Completed 06/01/2010 Visit Plan: Irritated skin tags to left neck x2 excised at base with scissors and base cauterized 05/30/2010 Appointment: María Elena Appiah WPtel: [address] [place], [place] [id number] OFFICE SURGERY 05/30/2010 Patient Education: Patient Medication Summary Completed 05/30/2010 Visit Plan: Saline nasal flushes prn. Ty lenol/Motrin prn headache. Notify if persists/symptoms worsening. Restart Nasonex Has allergy testing set for May 25 04/27/2010 Appointment: María Elena Appiahtel: [address] [place] [address] ACUTE ILLNESS 04/27/2010 Patient Education: Patient Medication Summary Completed 04/27/2010 Visit Plan: Saline nasal flushes prn. Ty lenol/Motrin prn headache. Notify if persists/symptoms worsening. Omnaris BID plus injections 04/05/2010 Appointment: María Elena Appiahtel: [address] [place] [address] ACUTE ILLNESS 04/05/2010 Patient Education: Patient Medication Summary Completed 04/05/2010 Visit Plan: Saline nasal flushes prn. Ty lenol/Motrin prn headache. Notify if persists/symptoms worsening. 03/09/2010 Appointment: María Elena Appiah WPtel: [address] [place] [address] ACUTE ILLNESS 03/09/2010 Patient Education: Patient Medication Summary Completed 03/09/2010 Visit Plan: Cont Clonidine as is Cont Pr emarin Fwup with surgery as scheduled 03/03/2010 Appointment: María Elena Appiahtel: [address] [place] [address] FOLLOW UP 03/03/2010 Patient Education: Patient Medication Summary Completed 03/03/2010 Visit Plan: Check Pelvic US now Dukee tacho Dand C vs Hysterectomy 01/17/2010 Appointment: María Elena Appiahtel: [address] [place] [address] ACUTE ILLNESS 01/17/2010 Patient Education: Patient Medication Summary Completed 01/17/2010 Visit Plan: Check fasting lab and schedu le Mammogram 2gm Na Diet Trial of Ambien 10mg qhs Fwup pending lab results 12/27/2009 Appointment: María Elena Appiahtel: [phone] [id number] [place] ESTABLISHED PATIENT 12/27/2009 Patient Education: Patient Medication Summary Completed 12/27/2009 Referral: Canelo Overton WPtel: [address] [id number] [place] Referral Initiated Referral: Mark Philipp WPtel: [address] [id number] [place] Referral Appointment Requested Instructions Comment . [...]
--- OUTSIDE RECORDS SUMMARY | 2020-03-13 06:48 | XMS REPORT | CCD ---
Author Author Gale Appiah D.O. Organization [facility] Address [address] [place] [phone] Phone Care Team Providers Care Business Operations Consultant Name Role Phone María Elena Appiah D.O., PP Unavailable CCM Unavailable Summary Purpose Interface Exchange Family History Family History data not found Social History Social History Element Codes Description Effective Dates Tobacco history SNOMED CT: [id number] Never smoker 05/22/2011 Allergies, Adverse Reactions, Alerts [...] hypertension ICD-9: 401.9 ICD-10: I10 05/14/2014 Active Fall from bed, sequela ICD-9: E929.3 [...] findings ICD-9: V70.9 ICD-10: Z00.00 12/18/2017 Active Mixed hyperlipidemia ICD-9: 272.4 ICD-10: E78.2 08/27/2014 Active 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 ICD-9: 454.8 ICD-10: I83.893 12/18/2017 Active Hyperglycemia, unspecified ICD-9: 790.29 ICD-10: R73.9 12/10/2017 Active Nontoxic goiter, unspecified ICD-9: 240.9 ICD-10: [...] Fill Instructions gabapentin 300 mg capsule RxNorm: 354325 TAKE ONE CAPSU LE BY MOUTH EVERY NIGHT AT BEDTIME 09/19/2019 No Stop Date Active baclofen 10 mg tablet RxNorm: 078968 TAKE ONE TABLET BY MOUTH THREE TIMES A DAY NEEDED 09/19/2019 No Stop Date Active Klor-Con 8 mEq tablet,extended release RxNorm: 386780 T FARRUKH ONE TABLET BY MOUTH TWICE A DAY 1 Tablet(s) Oral two times a day 09/19/2019 10/19/2019 Act darion hydrocodone 10 mg-acetaminophen 325 mg tablet RxNorm: 209737 1-2 Tablet(s) Oral three times a day as needed for pain 09/19/2019 No Stop Date Active duloxetine 60 mg capsule,delayed release RxNorm: 299860 TAKE ONE CAPSULE BY MOUTH DAILY 09/11/2019 No Stop Date Active Lipitor 10 mg tablet RxNorm: 018492 TAKE ONE TABLET BY MOUTH AT BEDTIME 09/11/2019 No Stop Date Active lisinopril 20 mg tablet RxNorm: 927524 TAKE ONE TABLET BY MOUTH DAILY .... THIS REPLACE 10MG TABLETS 09/11/2019 No Stop Date Active triamterene 75 mg-hydrochlorothiazide 50 mg tablet RxNorm: 3 75940 TAKE ONE TABLET BY MOUTH DAILY 09/11/2019 No Stop Date Active allopurinol 300 mg tablet RxNorm: 339104 TAKE ONE TABLET BY LOPEZ TH DAILY 09/11/2019 No Stop Date Active celecoxib 200 mg capsule RxNorm: 456188 TAKE ONE CAPSUL E BY MOUTH TWICE A DAY NEEDED FOR PAIN 09/11/2019 No Stop Date Active clonidine HCl 0.1 mg tablet RxNorm: 875519 TAKE ONE TAB LET BY MOUTH FOUR TIMES A DAY 09/11/2019 No Stop Date Active doxepin 25 mg capsule RxNorm: 4223821 1 Capsule(s) Oral every night at bedtime as needed for sleep 08/21/2019 11/18/2019 Active hydrocodone 10 mg-acetaminophen 325 mg tablet RxNorm: 312679 1-2 Tablet(s) PO TID 08/12/2019 No Stop Date Active as needed for pa in - Previous quantity #240, will start dosing for #180 in April 2011 per Doctor Td. Medrol (Dustin) 4 mg tablets in a dose pack RxNorm: 139265 Tablet(s) Oral As Directed 07/21/2019 No Stop Date Active Premarin 1.25 mg tablet RxNorm: 162620 1 Tablet(s) Oral QD 07/02/20 19 03/28/2020 Active hydrocodone 10 mg-acetaminophen 325 mg tablet RxNorm: 907397 1-2 Tablet(s) PO TID 07/01/2019 08/11/2019 Inactive as needed for pa in - Previous quantity #240, will start dosing for #180 in April 2011 per Doctor Td. gabapentin 300 mg capsule RxNorm: 931589 1 Capsule(s) PO QHS 201809/18/2019 Inactive celecoxib 200 mg capsule RxNorm: 954946 1 Capsule(s) Or al two times a day as needed for pain 06/27/2019 06/27/2019 Inactive Singulair 10 mg tablet RxNorm: 098323 TAKE ONE TABLET BY MOUTH JOSÉ Y 06/24/2019 No Stop Date Active furosemide 40 mg tablet RxNorm: 916215 TAKE ONE TABLET BY MOUTH EVERY MORNING NEEDED FOR EDEMA . TAKE WITH POTASSIUM 06/24/2019 No Stop Date Active doxepin 25 mg capsule RxNorm: 2603636 TAKE ONE CAPSULE B Y MOUTH EVERY NIGHT AT BEDTIME NEEDED FOR SLEEP 06/24/2019 08/20/2019 Inactive lisinopril 20 mg tablet RxNorm: 265303 TAKE ONE TABLET BY MOUTH DAILY .... THIS REPLACE 10MG TABLETS 06/24/2019 09/10/2019 Inactive nystatin-triamcinolone 100,000 unit/g-0.1 % topical cream Rx Norm: 7343419 1 Application Topical two times a day 06/12/2019 06/19/2019 Inactive apply BID for 1 week nystatin-triamcinolone 100,000 unit/g-0.1 % topical cream Rx Norm: 0265857 1 Application Topical two times a day 06/12/2019 06/11/2019 Inactive apply BID for 1 week hydrocodone 10 mg-acetaminophen 325 mg tablet RxNorm: 211939 1-2 Tablet(s) PO QID as needed for pain MUST LAST 30 DAYS 05/28/2019 06/26/2019 Inactiv e (Response to an electronic controlled substance refill request - RxReferenceNumber: [id number]) baclofen 20 mg tablet RxNorm: 500160 1 Tablet(s) PO TID as needed for muscle spasm 05/19/2019 05/27/2019 Inactive gabapentin 300 mg capsule RxNorm: 200541 1 Capsule(s) PO QHS 201805/27/2019 Inactive lisinopril 20 mg tablet RxNorm: 596716 1 Tablet(s) PO Q D TAKE ONE TABLET BY MOUTH DAILY, REPLACES 10 MG DOSE 05/19/2019 06/23/2019 Inactive doxepin 25 mg capsule RxNorm: 2861104 TAKE ONE CAPSULE B Y MOUTH EVERY NIGHT AT BEDTIME NEEDED FOR SLEEP 05/16/2019 06/14/2019 Inactive lisinopril 20 mg tablet RxNorm: 405202 TAKE ONE TABLET BY MOUTH DAILY, REPLACES 10 MG DOSE 05/16/2019 05/18/2019 Inactive Singulair 10 mg tablet RxNorm: 072937 TAKE ONE TABLET BY MOUTH JOSÉ Y 05/16/2019 06/14/2019 Inactive gabapentin 300 mg capsule RxNorm: 916907 1 Capsule(s) PO QHS 201805/04/2019 Inactive estropipate 1.5 mg tablet RxNorm: 257510 1 Tablet(s) PO QD 05/05/2005/27/2019 Inactive estropipate 1.5 mg tablet RxNorm: 693792 1 Tablet(s) PO QD 05/05/2005/04/2019 Inactive gabapentin 300 mg capsule RxNorm: 771920 1 Capsule(s) PO QHS 201805/18/2019 Inactive hydrocodone 10 mg-acetaminophen 325 mg tablet RxNorm: 810338 1-2 Tablet(s) PO QID as needed for pain MUST LAST 30 DAYS 04/25/2019 05/24/2019 Inactiv e (Response to an electronic controlled substance refill request - RxReferenceNumber: [id number]) metoprolol tartrate 100 mg tablet RxNorm: 442473 TAKE O NE TABLET BY MOUTH TWICE A DAY 04/24/2019 06/22/2019 Inactive cyclobenzaprine 10 mg tablet RxNorm: 679218 TAKE ONE TA BLET BY MOUTH THREE TIMES A DAY NEEDED FOR MUSCLE SPASMS 04/24/2019 05/18/2019 Inactive Lyrica 75 mg capsule RxNorm: 690676 1 Capsule(s) PO QHS 03/25/2019 Inactive duloxetine 60 mg capsule,delayed release RxNorm: 689899 TAKE ONE CAPSULE BY MOUTH DAILY 03/21/2019 05/19/2019 Inactive triamterene 75 mg-hydrochlorothiazide 50 mg tablet RxNorm: 3 08349 TAKE ONE TABLET BY MOUTH DAILY 03/21/2019 05/19/2019 Inactive Klor-Con 8 mEq tablet,extended release RxNorm: 140558 T FARRUKH ONE TABLET BY MOUTH TWICE A DAY 03/21/2019 09/18/2019 Inactive Lipitor 10 mg tablet RxNorm: 142887 TAKE ONE TABLET BY MOUTH AT BEDTIME 03/21/2019 09/10/2019 Inactive clonidine HCl 0.1 mg tablet RxNorm: 382294 TAKE ONE TAB LET BY MOUTH FOUR TIMES A DAY 03/21/2019 05/19/2019 Inactive allopurinol 300 mg tablet RxNorm: 540058 TAKE ONE TABLET BY LOPEZ TH DAILY 03/21/2019 05/19/2019 Inactive hydrocodone 10 mg-acetaminophen 325 mg tablet RxNorm: 998412 1-2 Tablet(s) PO QID as needed for pain MUST LAST 30 DAYS 02/28/2019 03/29/2019 Inactiv e (Response to an electronic controlled substance refill request - RxReferenceNumber: [id number]) furosemide 40 mg tablet RxNorm: 708108 TAKE ONE TABLET BY MOUTH EVERY MORNING NEEDED FOR EDEMA . TAKE WITH POTASSIUM 02/21/2019 03/22/2019 Inactive cyclobenzaprine 10 mg tablet RxNorm: 474404 TAKE ONE TA BLET BY MOUTH THREE TIMES A DAY NEEDED FOR MUSCLE SPASMS 02/21/2019 04/21/2019 Inactive lisinopril 20 mg tablet RxNorm: 571897 TAKE ONE TABLET BY MOUTH DAILY, REPLACES 10 MG DOSE 02/21/2019 05/15/2019 Inactive doxepin 25 mg capsule RxNorm: 1670424 TAKE ONE CAPSULE B Y MOUTH EVERY NIGHT AT BEDTIME NEEDED FOR SLEEP 02/21/2019 05/15/2019 Inactive nystatin 100,000 unit/gram topical cream RxNorm: 523852 APPLY TO AFFECTED AREA(S) TWO TIMES A DAY 02/21/2019 03/22/2019 Inactive estradiol 1 mg tablet RxNorm: 522880 2 Tablet(s) PO QD replaces premarin 01/22/2019 05/04/2019 Inactive lisinopril 20 mg tablet RxNorm: 671452 TAKE ONE TABLET BY MOUTH DAILY, REPLACES 10 MG DOSE 01/20/2019 02/18/2019 Inactive cyclobenzaprine 10 mg tablet RxNorm: 715115 TAKE ONE TA BLET BY MOUTH THREE TIMES A DAY NEEDED FOR MUSCLE SPASMS 01/20/2019 02/18/2019 Inactive metoprolol tartrate 100 mg tablet RxNorm: 590288 TAKE O NE TABLET BY MOUTH TWICE A DAY 01/20/2019 02/18/2019 Inactive cyclobenzaprine 10 mg tablet RxNorm: 925651 TAKE ONE TA BLET BY MOUTH THREE TIMES A DAY NEEDED FOR MUSCLE SPASMS 12/19/2018 01/17/2019 Inactive lisinopril 20 mg tablet RxNorm: 995743 TAKE ONE TABLET BY MOUTH DAILY, REPLACES 10 MG DOSE 12/19/2018 01/17/2019 Inactive duloxetine 60 mg capsule,delayed release RxNorm: 563585 TAKE ONE CAPSULE BY MOUTH DAILY 12/19/2018 01/17/2019 Inactive Lipitor 10 mg tablet RxNorm: 258169 TAKE ONE TABLET BY MOUTH AT BEDTIME 12/19/2018 01/17/2019 Inactive cyclobenzaprine 10 mg tablet RxNorm: 513846 1 Tablet(s) PO TID as needed for muscle spasm 11/19/2018 12/18/2018 Inactive Singulair 10 mg tablet RxNorm: 446832 1 Tablet(s) PO QD 11/19/2018 Inactive lisinopril 20 mg tablet RxNorm: 097180 TAKE ONE TABLET BY MOUTH DAILY, REPLACES 10 MG DOSE 11/15/2018 12/18/2018 Inactive hydrocodone 10 mg-acetaminophen 325 mg tablet RxNorm: 310601 1-2 Tablet(s) PO QID as needed for pain MUST LAST 30 DAYS 11/13/2018 12/12/2018 Inactiv e (Response to an electronic controlled substance refill request - RxReferenceNumber: [id number]) nystatin 100,000 unit/gram topical cream RxNorm: 019193 APPLY TO AFFECTED AREA(S) TWO TIMES A DAY 10/23/2018 11/06/2018 Inactive lisinopril 20 mg tablet RxNorm: 350000 1 Tablet(s) PO QD replac es 10mg dose 10/18/2018 11/14/2018 Inactive hydrocodone 10 mg-acetaminophen 325 mg tablet RxNorm: 293719 1-2 Tablet(s) QID as needed for pain MUST LAST 30 DAYS 10/08/2018 11/06/2018 Inactive (Response to an electronic controlled substance refill request - RxReferenceNumber: [id number]) lisinopril 10 mg tablet RxNorm: 396631 1 Tablet(s) PO QD 10/03/2018 0 01/21/2019 Inactive Celebrex 200 mg capsule RxNorm: 401079 TAKE ONE CAPSULE BY MOUT H TWICE A DAY 09/30/2018 05/04/2019 Inactive cyclobenzaprine 10 mg tablet RxNorm: 247341 TAKE ONE TA BLET BY MOUTH THREE TIMES A DAY NEEDED FOR MUSCLE SPASMS 09/30/2018 11/18/2018 Inactive doxepin 25 mg capsule RxNorm: 1676534 TAKE ONE CAPSULE B Y MOUTH EVERY NIGHT AT BEDTIME NEEDED 09/05/2018 10/16/2018 Inactive omeprazole 40 mg capsule,delayed release RxNorm: 310255 TAKE ONE CAPSULE BY MOUTH DAILY 09/05/2018 01/21/2019 Inactive furosemide 40 mg tablet RxNorm: 619447 TAKE ONE TABLET BY MOUTH EVERY MORNING NEEDED FOR EDEMA . TAKE WITH POTASSIUM 09/05/2018 11/03/2018 Inactive phentermine 37.5 mg tablet RxNorm: 890954 1 Tablet(s) PO QAM 201701/21/2019 Inactive doxepin 25 mg capsule RxNorm: 7509180 1 Capsule(s) PO QH S as needed for sleep TAKE ONE CAPSULE BY MOUTH EVERY NIGHT AT BEDTIME NEEDED 08/27/2018 09/04/2018 Inactive Keflex 500 mg capsule RxNorm: 128828 1 Capsule(s) PO TID 08/09/2018 1 10/19/2017 Inactive Diflucan 100 mg tablet RxNorm: 886490 1 Tablet(s) PO QD 08/09/2018 Inactive Premarin 1.25 mg tablet RxNorm: 853439 2 Tablet(s) PO QD 08/09/2018 0 05/04/2019 Inactive Zofran ODT 4 mg disintegrating tablet RxNorm: 524015 1 Tablet(s) PO Q4H as needed for nausea 08/09/2018 01/21/2019 Inactive metoprolol tartrate 100 mg tablet RxNorm: 668535 TAKE O NE TABLET BY MOUTH TWICE A DAY 2018 10/04/2018 Inactive doxepin 25 mg capsule RxNorm: 5921331 TAKE ONE CAPSULE B Y MOUTH EVERY NIGHT AT BEDTIME NEEDED 2018 08/26/2018 Inactive cyclobenzaprine 10 mg tablet RxNorm: 230110 TAKE ONE TA BLET BY MOUTH THREE TIMES A DAY NEEDED FOR MUSCLE SPASMS 2018 09/29/2018 Inactive hydrocodone 10 mg-acetaminophen 325 mg tablet RxNorm: 469270 1-2 Tablet(s) QID as needed for pain MUST LAST 30 DAYS 07/29/2018 08/27/2018 Inactive (Response to an electronic controlled substance refill request - RxReferenceNumber: [id number]) nystatin 100,000 unit/gram topical powder RxNorm: 572946 Applic ation TOP BID 07/22/2018 08/04/2018 Inactive doxepin 25 mg capsule RxNorm: 2714550 1 Capsule(s) PO QHS as needed 07/22/2018 08/05/2018 Inactive triamterene 75 mg-hydrochlorothiazide 50 mg tablet RxNorm: 3 07415 TAKE ONE TABLET BY MOUTH DAILY 07/05/2018 10/02/2018 Inactive duloxetine 60 mg capsule,delayed release RxNorm: 512501 TAKE ONE CAPSULE BY MOUTH DAILY 07/05/2018 09/02/2018 Inactive Klor-Con 8 mEq tablet,extended release RxNorm: 693506 T FARRUKH ONE TABLET BY MOUTH TWICE A DAY 07/05/2018 10/02/2018 Inactive Lipitor 10 mg tablet RxNorm: 179129 TAKE ONE TABLET BY MOUTH AT BEDTIME 07/05/2018 09/02/2018 Inactive allopurinol 300 mg tablet RxNorm: 790159 TAKE ONE TABLET BY LOPEZ TH DAILY 07/05/2018 10/02/2018 Inactive clonidine HCl 0.1 mg tablet RxNorm: 228239 TAKE ONE TAB LET BY MOUTH FOUR TIMES A DAY 07/05/2018 10/02/2018 Inactive hydrocodone 10 mg-acetaminophen 325 mg tablet RxNorm: 867222 1-2 Tablet(s) QID as needed for pain MUST LAST 30 DAYS 06/28/2018 07/27/2018 Inactive (Response to an electronic controlled substance refill request - RxReferenceNumber: [id number]) MediHoney (calcium alginate-honey) 4" X 5" bandage RxNorm: 1 Application TOP QD 06/17/2018 06/26/2018 Inactive honey-hydrocolloid dressing 4" X 5" RxNorm: 1 Application TOP QD 06/17/2018 07/16/2018 Inactive furosemide 40 mg tablet RxNorm: 598544 TAKE ONE TABLET BY MOUTH EVERY MORNING NEEDED FOR EDEMA . TAKE WITH POTASSIUM 06/10/2018 07/09/2018 Inactive This is a refill request. hydrocodone 10 mg-acetaminophen 325 mg tablet RxNorm: 365711 1-2 Tablet(s) QID as needed for pain MUST LAST 30 DAYS 05/30/2018 06/27/2018 Inactive (Response to an electronic controlled substance refill request - RxReferenceNumber: [id number]) acyclovir 800 mg tablet RxNorm: 407422 1 Tablet(s) PO 5x day 201705/22/2018 Inactive Premarin 1.25 mg tablet RxNorm: 689613 1-2 Tablet(s) PO QD 05/15/20 18 07/13/2018 Inactive cyclobenzaprine 10 mg tablet RxNorm: 254776 1 Tablet(s) PO TID as needed for muscle spasm 05/09/2018 05/08/2018 Inactive Medrol (Dustin) 4 mg tablets in a dose pack RxNorm: 474631 Tablet(s) PO As Directed 05/02/2018 06/16/2018 Inactive hydrocodone 10 mg-acetaminophen 325 mg tablet RxNorm: 382899 1-2 Tablet(s) QID as needed for pain MUST LAST 30 DAYS 04/30/2018 05/29/2018 Inactive (Response to an electronic controlled substance refill request - RxReferenceNumber: [id number]) duloxetine 60 mg capsule,delayed release RxNorm: 284146 TAKE ONE CAPSULE BY MOUTH DAILY 04/16/2018 05/15/2018 Inactive Celebrex 200 mg capsule RxNorm: 451909 TAKE ONE CAPSULE BY MOUT H TWICE A DAY 04/16/2018 06/14/2018 Inactive Singulair 10 mg tablet RxNorm: 302461 TAKE ONE TABLET BY MOUTH JOSÉ Y 04/16/2018 11/19/2018 Inactive Lipitor 10 mg tablet RxNorm: 309976 TAKE ONE TABLET BY MOUTH AT BEDTIME 04/16/2018 05/15/2018 Inactive hydrocodone 10 mg-acetaminophen 325 mg tablet RxNorm: 966316 1-2 Tablet(s) QID as needed for pain MUST LAST 30 DAYS 03/29/2018 04/27/2018 Inactive (Response to an electronic controlled substance refill request - RxReferenceNumber: [id number]) cyclobenzaprine 10 mg tablet RxNorm: 728248 1 Tablet(s) PO TID as needed for muscle spasm 03/18/2018 05/09/2018 Inactive omeprazole 40 mg capsule,delayed release RxNorm: 446146 1 Capsu le(s) PO QD 02/26/2018 08/24/2018 Inactive hydrocodone 10 mg-acetaminophen 325 mg tablet RxNorm: 390094 1-2 Tablet(s) QID as needed for pain MUST LAST 30 DAYS 02/26/2018 03/27/2018 Inactive (Response to an electronic controlled substance refill request - RxReferenceNumber: [id number]) metoprolol tartrate 100 mg tablet RxNorm: 195852 1 Tablet(s) PO BID 02/18/2018 08/05/2018 Inactive Lyrica 75 mg capsule RxNorm: 226759 1 Capsule(s) PO QHS 01/30/2018 Inactive phentermine 37.5 mg tablet RxNorm: 511988 1 Tablet(s) PO QAM 201706/16/2018 Inactive hydrocodone 10 mg-acetaminophen 325 mg tablet RxNorm: 994527 1-2 Tablet(s) QID as needed for pain MUST LAST 30 DAYS 01/29/2018 02/25/2018 Inactive (Response to an electronic controlled substance refill request - RxReferenceNumber: [id number]) Klor-Con 8 mEq tablet,extended release RxNorm: 725832 1 Tablet( s) PO BID 01/14/2018 07/04/2018 Inactive allopurinol 300 mg tablet RxNorm: 835936 1 Tablet(s) PO QD 01/15/2007/04/2018 Inactive Lipitor 10 mg tablet RxNorm: 335556 1 Tablet(s) PO QHS 01/14/201812/2017 Inactive triamterene 75 mg-hydrochlorothiazide 50 mg tablet RxNorm: 3 62178 1 Tablet(s) PO QD 01/14/2018 07/04/2018 Inactive hydrocodone 10 mg-acetaminophen 325 mg tablet RxNorm: 977975 1-2 Tablet(s) QID as needed for pain MUST LAST 30 DAYS 12/27/2017 01/25/2018 Inactive (Response to an electronic controlled substance refill request - RxReferenceNumber: [id number]) Onglyza 5 mg tablet RxNorm: 968100 1 Tablet(s) PO QD 12/18/201701/29 Inactive metformin 500 mg tablet RxNorm: 337273 1 Tablet(s) PO BID 12/11/2017 12/10/2017 Inactive metformin 500 mg tablet RxNorm: 222047 1 Tablet(s) PO BID 12/11/2017 12/17/2017 Inactive furosemide 40 mg tablet RxNorm: 257501 1 Tablet(s) PO Q AM prn edema--take with potassium 12/11/2017 06/08/2018 Inactive cyclobenzaprine 10 mg tablet RxNorm: 755577 1 Tablet(s) PO TID as needed for muscle spasm 12/11/2017 03/18/2018 Inactive hydrocodone 10 mg-acetaminophen 325 mg tablet RxNorm: 869450 1-2 Tablet(s) QID as needed for pain MUST LAST 30 DAYS 10/23/2017 11/21/2017 Inactive (Response to an electronic controlled substance refill request - RxReferenceNumber: [id number]) Lipitor 10 mg tablet RxNorm: 807331 1 Tablet(s) PO QHS 10/16/201703/2018 Inactive cyclobenzaprine 10 mg tablet RxNorm: 218133 1 Tablet(s) PO TID as needed for muscle spasm 10/09/2017 12/10/2017 Inactive hydroxyzine HCl 25 mg tablet RxNorm: 561618 1 Tablet(s) PO BID as needed for anxiety 09/20/2017 01/29/2018 Inactive Effexor XR 75 mg capsule,extended release RxNorm: 541186 1 Caps ule(s) PO QD 09/20/2017 01/29/2018 Inactive metoprolol tartrate 100 mg tablet RxNorm: 309220 1 Tablet(s) PO BID 08/20/2017 02/18/2018 Inactive baclofen 20 mg tablet RxNorm: 731513 1 Tablet(s) PO TID as needed for muscle spasm 08/20/2017 01/21/2019 Inactive clonidine HCl 0.1 mg tablet RxNorm: 285309 1 Tablet(s) PO QID 08/2005/16/2018 Inactive Seroquel 25 mg tablet RxNorm: 577541 1 Tablet(s) PO QHS 08/17/2017 Inactive Seroquel 25 mg tablet RxNorm: 018577 1 Tablet(s) PO QHS 08/17/2017 Inactive Diflucan 100 mg tablet RxNorm: 030341 TAKE ONE TABLET BY MOUTH JOSÉ Y 07/25/2017 08/07/2017 Inactive hydrocodone 10 mg-acetaminophen 325 mg tablet RxNorm: 723726 1-2 Tablet(s) QID as needed for pain MUST LAST 30 DAYS 07/19/2017 08/17/2017 Inactive (Response to an electronic controlled substance refill request - RxReferenceNumber: [id number]) clindamycin 300 mg capsule RxNorm: 734005 1 Capsule(s) PO TID 07/1907/28/2017 Inactive clotrimazole-betamethasone 1 %-0.05 % topical cream RxNorm: 975636 Application TOP BID to elbow rash 07/19/2017 06/16/2018 Inactive Singulair 10 mg tablet RxNorm: 923839 Tablet(s) TAKE ONE TABLET BY MOUTH DAILY 07/18/2017 04/13/2018 Inactive triamterene 75 mg-hydrochlorothiazide 50 mg tablet RxNorm: 3 02303 1 Tablet(s) PO QD 07/18/2017 01/14/2018 Inactive Celebrex 200 mg capsule RxNorm: 658620 Capsule(s) TAKE ONE CAPSULE BY MOUTH TWICE A DAY 07/18/2017 10/15/2017 Inactive hydrocodone 10 mg-acetaminophen 325 mg tablet RxNorm: 381784 1-2 Tablet(s) QID as needed for pain MUST LAST 30 DAYS 06/19/2017 07/18/2017 Inactive (Response to an electronic controlled substance refill request - RxReferenceNumber: [id number]) hydrocodone 10 mg-acetaminophen 325 mg tablet RxNorm: 669065 1-2 Tablet(s) QID as needed for pain MUST LAST 30 DAYS 06/19/2017 06/18/2017 Inactive (Response to an electronic controlled substance refill request - RxReferenceNumber: [id number]) baclofen 20 mg tablet RxNorm: 416858 1 Tablet(s) PO TID as needed for muscle spasm 06/18/2017 08/20/2017 Inactive Medrol (Dustin) 4 mg tablets in a dose pack RxNorm: 371695 Tablet(s) PO As Directed 06/05/2017 07/18/2017 Inactive omeprazole 40 mg capsule,delayed release RxNorm: 428380 1 Capsu le(s) PO QD 04/20/2017 10/16/2017 Inactive Premarin 1.25 mg tablet RxNorm: 426876 1-2 Tablet(s) PO QD 04/11/20 17 05/15/2018 Inactive duloxetine 60 mg capsule,delayed release RxNorm: 610292 1 Capsu le(s) PO QD 04/11/2017 09/19/2017 Inactive furosemide 40 mg tablet RxNorm: 785952 1 Tablet(s) PO Q AM prn edema--take with potassium 04/11/2017 12/11/2017 Inactive Klor-Con 8 mEq tablet,extended release RxNorm: 889864 1 Tablet( s) PO BID 04/11/2017 01/14/2018 Inactive Lipitor 10 mg tablet RxNorm: 293255 1 Tablet(s) PO QHS 04/11/201702/2018 Inactive amlodipine 5 mg-benazepril 20 mg capsule RxNorm: 621664 1 Capsu le(s) PO QD 04/11/2017 01/29/2018 Inactive allopurinol 300 mg tablet RxNorm: 558943 1 Tablet(s) PO QD 04/11/20 17 01/14/2018 Inactive clonidine HCl 0.1 mg tablet RxNorm: 479680 1 Tablet(s) PO QID 04/0508/19/2017 Inactive baclofen 20 mg tablet RxNorm: 782262 1 Tablet(s) PO TID as needed for muscle spasm 04/02/2017 06/18/2017 Inactive Premarin 1.25 mg tablet RxNorm: 422350 1-2 Tablet(s) PO QD 03/20/20 17 04/10/2017 Inactive hydrocodone 10 mg-acetaminophen 325 mg tablet RxNorm: 658321 1-2 Tablet(s) QID as needed for pain MUST LAST 30 DAYS 03/14/2017 01/21/2019 Inactive (Response to an electronic controlled substance refill request - RxReferenceNumber: [id number]) metoprolol tartrate 100 mg tablet RxNorm: 658072 1 Tablet(s) PO BID 02/12/2017 08/20/2017 Inactive hydrocodone 10 mg-acetaminophen 325 mg tablet RxNorm: 211807 1-2 Tablet(s) QID as needed for pain MUST LAST 30 DAYS 02/08/2017 03/09/2017 Inactive (Response to an electronic controlled substance refill request - RxReferenceNumber: [id number]) metoprolol tartrate 100 mg tablet RxNorm: 521835 TAKE O NE TABLET BY MOUTH TWICE A DAY 01/11/2017 02/12/2017 Inactive metoprolol tartrate 100 mg tablet RxNorm: 593208 1 Tablet(s) PO BID 12/18/2016 12/17/2016 Inactive metoprolol tartrate 100 mg tablet RxNorm: 912429 1 Tablet(s) PO BID 12/18/2016 01/10/2017 Inactive furosemide 40 mg tablet RxNorm: 310588 1 Tablet(s) PO Q AM prn edema--take with potassium 12/13/2016 02/10/2017 Inactive amitriptyline 100 mg tablet RxNorm: 526631 1 Tablet(s) PO QHS 11/2812/12/2016 Inactive baclofen 20 mg tablet RxNorm: 593007 1 Tablet(s) PO TID as needed for muscle spasm 11/14/2016 04/01/2017 Inactive triamterene 75 mg-hydrochlorothiazide 50 mg tablet RxNorm: 3 28541 1 Tablet(s) PO QD 11/14/2016 11/13/2016 Inactive metolazone 2.5 mg tablet RxNorm: 285605 TAKE ONE TABLET BY MOUTH DAILY NEEDED FOR EDEMA 11/14/2016 12/12/2016 Inactive triamterene 75 mg-hydrochlorothiazide 50 mg tablet RxNorm: 3 71027 1 Tablet(s) PO QD 11/14/2016 07/18/2017 Inactive amitriptyline 50 mg tablet RxNorm: 437238 TAKE ONE TABL ET BY MOUTH AT BEDTIME NEEDED FOR SLEEP 11/14/2016 11/27/2016 Inactive Cymbalta 60 mg capsule,delayed release RxNorm: 677228 1 Capsule (s) PO QHS 11/14/2016 12/12/2016 Inactive clonidine HCl 0.1 mg tablet RxNorm: 675532 1 Tablet(s) PO QID 11/1304/04/2017 Inactive amitriptyline 50 mg tablet RxNorm: 399414 1 Tablet(s) P O QHS as needed for sleep 11/01/2016 11/27/2016 Inactive duloxetine 60 mg capsule,delayed release RxNorm: 246565 TAKE ONE CAPSULE BY MOUTH DAILY 10/20/2016 01/17/2017 Inactive allopurinol 300 mg tablet RxNorm: 178861 TAKE ONE TABLET BY LOPEZ TH DAILY 10/20/2016 01/16/2017 Inactive Lyrica 75 mg capsule RxNorm: 421661 TAKE ONE CAPSULE BY MOUTH EVERY NIGHT AT BEDTIME 10/20/2016 12/10/2016 Inactive Klor-Con 8 mEq tablet,extended release RxNorm: 977689 T FARRUKH ONE TABLET BY MOUTH TWICE A DAY 10/20/2016 01/17/2017 Inactive Celebrex 200 mg capsule RxNorm: 218970 TAKE ONE CAPSULE BY MOUT H TWICE A DAY 10/20/2016 07/18/2017 Inactive Bystolic 10 mg tablet RxNorm: 701733 TAKE ONE TABLET BY MOUTH EVERY NIGHT AT BEDTIME 10/20/2016 12/17/2016 Inactive amlodipine 5 mg-benazepril 20 mg capsule RxNorm: 667814 TAKE ONE CAPSULE BY MOUTH EVERY NIGHT AT BEDTIME -- TO REPLACE AMLODOPINE 10/20/20162016 Inactive Lipitor 10 mg tablet RxNorm: 662634 TAKE ONE TABLET BY MOUTH EVERY NIGHT AT BEDTIME 10/20/2016 01/17/2017 Inactive alprazolam 0.5 mg tablet RxNorm: 307185 3 Tablet(s) PO QHS as needed for sleep/anxiety 09/20/2016 10/31/2016 Inactive Tamiflu 75 mg capsule RxNorm: 146353 1 Capsule(s) PO QD 09/19/2016 Inactive Lyrica 75 mg capsule RxNorm: 148710 1 Capsule(s) PO QHS 09/19/2016 Inactive prednisone 20 mg tablet RxNorm: 532493 1 Tablet(s) PO QD 08/10/2016 1 10/17/2015 Inactive doxycycline hyclate 100 mg capsule RxNorm: 2615770 1 Capsule(s) PO BID 08/10/2016 08/19/2016 Inactive Medrol (Dustin) 4 mg tablets in a dose pack RxNorm: 677211 Tablet(s) PO As Directed 07/31/2016 08/22/2016 Inactive Singulair 10 mg tablet RxNorm: 206119 TAKE ONE TABLET BY MOUTH JOSÉ Y 07/27/2016 07/18/2017 Inactive hydrocodone 10 mg-acetaminophen 325 mg tablet RxNorm: 864906 1-2 Tablet(s) QID as needed for pain MUST LAST 30 DAYS 07/26/2016 08/24/2016 Inactive (Response to an electronic controlled substance refill request - RxReferenceNumber: [id number]) alprazolam 0.5 mg tablet RxNorm: 112697 3 Tablet(s) PO QHS as needed for anxiety or sleep 07/26/2016 09/20/2016 Inactive clindamycin 300 mg capsule RxNorm: 165779 1 Capsule(s) PO TID 07/2007/29/2016 Inactive Diflucan 100 mg tablet RxNorm: 224451 1 Tablet(s) PO QD 07/20/2016 Inactive Levaquin 500 mg tablet RxNorm: 136855 1 Tablet(s) PO QD 07/17/2016 Inactive Levaquin 500 mg tablet RxNorm: 216743 1 Tablet(s) PO QD 07/10/2016 Inactive Levaquin 500 mg tablet RxNorm: 953730 1 Tablet(s) PO QD 07/10/2016 Inactive mupirocin 2 % topical ointment RxNorm: 018116 TOP Apply topically to affected areas twice daily 07/06/2016 09/18/2016 Inactive Singulair 10 mg tablet RxNorm: 274918 TAKE ONE TABLET BY MOUTH JOSÉ Y 06/21/2016 01/21/2019 Inactive alprazolam 0.5 mg tablet RxNorm: 964290 TAKE THREE TABL ETS BY MOUTH AT BEDTIME NEEDED FOR SLEEP OR STRESS 05/22/2016 06/20/2016 Inactive triamterene 75 mg-hydrochlorothiazide 50 mg tablet RxNorm: 3 87291 1 Tablet(s) PO QD 04/26/2016 10/21/2016 Inactive Premarin 1.25 mg tablet RxNorm: 839376 1-2 Tablet(s) PO QD 04/26/20 16 03/20/2017 Inactive Klor-Con 8 mEq tablet,extended release RxNorm: 131064 1 Tablet( s) PO BID 04/26/2016 10/19/2016 Inactive Celebrex 200 mg capsule RxNorm: 131893 1 Capsule(s) PO BID TAKE ONE CAPSULE BY MOUTH EVERY DAY 04/26/2016 10/19/2016 Inactive Lipitor 10 mg tablet RxNorm: 064507 1 Tablet(s) PO QHS 04/26/201605/2017 Inactive allopurinol 300 mg tablet RxNorm: 564898 1 Tablet(s) PO QD TAKE ONE TABLET BY MOUTH EVERY DAY 04/26/2016 10/19/2016 Inactive amlodipine 5 mg-benazepril 20 mg capsule RxNorm: 782343 1 Capsule(s) PO QHS replaces amlodopine 04/26/2016 10/19/2016 Inactive duloxetine 60 mg capsule,delayed release RxNorm: 237300 1 Capsu le(s) PO QD 04/26/2016 10/19/2016 Inactive Bystolic 10 mg tablet RxNorm: 360507 1 Tablet(s) PO QHS 04/26/2016 Inactive Singulair 10 mg tablet RxNorm: 926160 1 Tablet(s) PO QD TAKE ONE TABLET BY MOUTH DAILY 04/26/2016 06/20/2016 Inactive clonidine HCl 0.1 mg tablet RxNorm: 813207 1 Tablet(s) PO QID 04/2610/22/2016 Inactive hydrocodone 10 mg-acetaminophen 325 mg tablet RxNorm: 754962 1-2 Tablet(s) QID as needed for pain TAKE ONE TO TWO TABLETS BY MOUTH FOUR TIMES A DAY . MUST LAST 30 DAYS 03/31/2016 04/29/2016 Inactive (Response to an electronic controlled substance refill request - [id number] Klor-Con 8 mEq tablet,extended release RxNorm: 070810 T FARRUKH ONE TABLET BY MOUTH TWICE A DAY 03/24/2016 04/22/2016 Inactive prednisone 20 mg tablet RxNorm: 164313 1 Tablet(s) PO QD 03/09/2016 0 03/08/2016 Inactive prednisone 20 mg tablet RxNorm: 953769 1 Tablet(s) PO QD 03/09/2016 0 03/13/2016 Inactive alprazolam 0.5 mg tablet RxNorm: 234468 3 Tablet(s) PO QHS as needed for sleep/stress 03/02/2016 01/21/2019 Inactive mupirocin 2 % topical ointment RxNorm: 148951 TOP twice daily to affected areas of face and neck 02/21/2016 04/25/2016 Inactive clonidine HCl 0.1 mg tablet RxNorm: 843394 TAKE ONE TAB LET BY MOUTH FOUR TIMES A DAY 02/15/2016 03/15/2016 Inactive clonidine HCl 0.1 mg tablet RxNorm: 063370 1 Tablet(s) PO QID 02/1404/25/2016 Inactive Premarin 1.25 mg tablet RxNorm: 459068 1-2 Tablet(s) PO QD 02/15/20 16 03/15/2016 Inactive Klor-Con 8 mEq tablet,extended release RxNorm: 937927 T FARRUKH ONE TABLET BY MOUTH TWICE A DAY 02/15/2016 03/15/2016 Inactive potassium chloride ER 20 mEq tablet,extended release(part/cr yst) RxNorm: 824367 2 Tablet(s) PO BID 02/15/2016 03/15/2016 Inactive Macrobid 100 mg capsule RxNorm: 715287 1 Capsule(s) PO BID 01/24/20 16 01/30/2016 Inactive prednisone 20 mg tablet RxNorm: 619269 Take 3tabs PO QD x 2 days, then 2 tabs PO QD x 2 days, then 1 tab PO QD x 2 days, then 1/2 tab PO QDy x 2 days 12/23/2015 04/25/2016 Inactive Klor-Con 8 mEq tablet,extended release RxNorm: 750673 T FARRUKH ONE TABLET BY MOUTH TWICE A DAY 12/20/2015 02/14/2016 Inactive alprazolam 1 mg tablet RxNorm: 851604 1 1/2 Tablet(s) PO QHS 201501/23/2016 Inactive nystatin 100,000 unit/gram topical cream RxNorm: 837565 APPLY TO AFFECTED AREA(S) TWO TIMES A DAY 11/30/2015 12/14/2015 Inactive Singulair 10 mg tablet RxNorm: 684212 TAKE ONE TABLET BY MOUTH JOSÉ Y 11/18/2015 04/25/2016 Inactive allopurinol 300 mg tablet RxNorm: 643640 1 Tablet(s) PO QD TAKE ONE TABLET BY MOUTH EVERY DAY 10/26/2015 04/22/2016 Inactive Singulair 10 mg tablet RxNorm: 091863 TAKE ONE TABLET BY MOUTH JOSÉ Y 10/26/2015 11/17/2015 Inactive duloxetine 60 mg capsule,delayed release RxNorm: 953026 1 Capsu le(s) PO QD 10/26/2015 04/22/2016 Inactive triamterene 75 mg-hydrochlorothiazide 50 mg tablet RxNorm: 3 44129 1 Tablet(s) PO QD 10/26/2015 11/14/2016 Inactive potassium chloride ER 20 mEq tablet,extended release(part/cr yst) RxNorm: 794522 2 Tablet(s) PO BID 10/26/2015 02/14/2016 Inactive Lipitor 10 mg tablet RxNorm: 963538 1 Tablet(s) PO QHS 10/26/2015 Inactive amlodipine 5 mg-benazepril 20 mg capsule RxNorm: 539802 1 Capsule(s) PO QHS replaces amlodopine 10/26/2015 04/22/2016 Inactive Bystolic 10 mg tablet RxNorm: 056443 1 Tablet(s) PO QHS 10/26/2015 Inactive amlodipine 5 mg-benazepril 20 mg capsule RxNorm: 866261 1 Capsule(s) PO QHS replaces amlodopine 10/06/2015 10/25/2015 Inactive amlodipine 5 mg tablet RxNorm: 817179 1 Tablet(s) PO QHS 09/30/2015 0 04/25/2016 Inactive metolazone 2.5 mg tablet RxNorm: 447205 TAKE ONE TABLET BY MOUTH DAILY NEEDED FOR EDEMA 09/30/2015 01/21/2019 Inactive duloxetine 60 mg capsule,delayed release RxNorm: 468120 1 Capsu le(s) PO QD 09/30/2015 10/25/2015 Inactive cephalexin 500 mg capsule RxNorm: 192577 1 Capsule(s) PO BID 201509/23/2015 Inactive mupirocin 2 % topical ointment RxNorm: 607897 TOP twice daily to affected areas of face and neck 09/14/2015 02/20/2016 Inactive baclofen 20 mg tablet RxNorm: 146043 1 Tablet(s) PO TID as needed for muscle spasm 09/01/2015 11/14/2016 Inactive clonidine HCl 0.1 mg tablet RxNorm: 503873 1 Tablet(s) PO QID 09/0102/14/2016 Inactive alprazolam 1 mg tablet RxNorm: 062759 1 1/2 Tablet(s) PO QHS 201409/09/2015 Inactive baclofen 20 mg tablet RxNorm: 284487 1 Tablet(s) PO TID as needed for muscle spasm 07/23/2015 09/01/2015 Inactive omeprazole 40 mg capsule,delayed release RxNorm: 857965 1 Capsu le(s) PO QD 07/23/2015 04/25/2016 Inactive alprazolam 1 mg tablet RxNorm: 026072 1 1/2 Tablet(s) PO QHS 201408/10/2015 Inactive Bystolic 10 mg tablet RxNorm: 821415 1 Tablet(s) PO BID 06/24/2015 Inactive allopurinol 300 mg tablet RxNorm: 772016 1 Tablet(s) PO QD TAKE ONE TABLET BY MOUTH EVERY DAY 06/23/2015 10/20/2015 Inactive alprazolam 1 mg tablet RxNorm: 956786 1 1/2 Tablet(s) PO QHS 201407/06/2015 Inactive clonidine HCl 0.1 mg tablet RxNorm: 262972 1 Tablet(s) PO QID 06/0209/01/2015 Inactive clonidine HCl 0.1 mg tablet RxNorm: 255053 1 Tablet(s) PO QID 06/0206/01/2015 Inactive Cymbalta 60 mg capsule,delayed release RxNorm: 747769 1 Capsule (s) PO QHS 06/02/2015 08/30/2015 Inactive Cymbalta 60 mg capsule,delayed release RxNorm: 172383 1 Capsule (s) PO QHS 06/02/2015 06/01/2015 Inactive clonidine HCl 0.1 mg tablet RxNorm: 854050 1 Tablet(s) PO TID 05/3106/01/2015 Inactive replaces 0.2mg dose metolazone 2.5 mg tablet RxNorm: 395707 TAKE ONE TABLET BY MOUTH DAILY NEEDED FOR EDEMA 05/21/2015 06/19/2015 Inactive Singulair 10 mg tablet RxNorm: 247461 TAKE ONE TABLET BY MOUTH JOSÉ Y 05/21/2015 10/17/2015 Inactive Cymbalta 30 mg capsule,delayed release RxNorm: 769906 1 Capsule (s) PO QHS 05/20/2015 11/14/2016 Inactive betamethasone valerate 0.1 % topical cream RxNorm: 080701 Appli cation TOP BID 05/10/2015 04/25/2016 Inactive Bactroban 2 % topical ointment RxNorm: 139193 Application TOP BID 0 05/10/2015 06/20/2015 Inactive baclofen 20 mg tablet RxNorm: 412764 1 Tablet(s) PO TID as needed 0 04/26/2015 07/23/2015 Inactive Lipitor 10 mg tablet RxNorm: 917555 1 Tablet(s) PO QHS 04/26/201508/2016 Inactive clonidine HCl 0.1 mg tablet RxNorm: 127956 1 Tablet(s) PO TID 04/2605/30/2015 Inactive replaces 0.2mg dose Klor-Con 8 mEq tablet,extended release RxNorm: 086831 1 Tablet( s) PO BID 04/26/2015 04/25/2016 Inactive metolazone 2.5 mg tablet RxNorm: 940123 1 Tablet(s) PO QD as ne eded for edema 04/26/2015 04/25/2015 Inactive triamterene 75 mg-hydrochlorothiazide 50 mg tablet RxNorm: 3 71380 1 Tablet(s) PO QD 04/26/2015 10/22/2015 Inactive Premarin 1.25 mg tablet RxNorm: 722915 1-2 Tablet(s) PO QD 04/26/20 15 10/22/2015 Inactive Bystolic 10 mg tablet RxNorm: 080363 1 Tablet(s) PO QAM TAKE ONE TABLET BY MOUTH EVERY MORNING 04/23/2015 06/23/2015 Inactive clonidine HCl 0.1 mg tablet RxNorm: 773369 1 Tablet(s) PO TID 03/2304/25/2015 Inactive replaces 0.2mg dose nystatin 100,000 unit/gram topical cream RxNorm: 998140 Applica tion TOP BID 03/23/2015 06/20/2015 Inactive baclofen 20 mg tablet RxNorm: 694278 1 Tablet(s) PO TID as needed 0 03/23/2015 04/25/2015 Inactive Premarin 1.25 mg tablet RxNorm: 527603 1-2 Tablet(s) PO QD 03/23/20 15 04/25/2015 Inactive Klor-Con 8 mEq tablet,extended release RxNorm: 575850 1 Tablet( s) PO BID 03/23/2015 04/25/2015 Inactive cefdinir 300 mg capsule RxNorm: 425282 2 Capsule(s) PO QD 03/16/2015 03/25/2015 Inactive baclofen 20 mg tablet RxNorm: 633018 1 Tablet(s) PO TID as needed 0 03/02/2015 03/22/2015 Inactive allopurinol 300 mg tablet RxNorm: 081587 1 Tablet(s) PO QD TAKE ONE TABLET BY MOUTH EVERY DAY 02/22/2015 05/22/2015 Inactive Klor-Con M20 mEq tablet,extended release RxNorm: 489578 2 Tablet(s) PO BID to use with lasix 02/22/2015 06/20/2015 Inactive clonidine HCl 0.1 mg tablet RxNorm: 794437 1 Tablet(s) PO TID 02/1903/22/2015 Inactive replaces 0.2mg dose Lipitor 10 mg tablet RxNorm: 593645 1 Tablet(s) PO QHS 01/20/201506/2015 Inactive Lipitor 10 mg tablet RxNorm: 134320 1 Tablet(s) PO QHS 01/20/2015 Inactive Singulair 10 mg tablet RxNorm: 520283 1 Tablet(s) PO QD TAKE ONE TABLET BY MOUTH EVERY DAY 11/20/2014 05/18/2015 Inactive Lipitor 10 mg tablet RxNorm: 382092 1 Tablet(s) PO QHS 11/20/201408/2015 Inactive allopurinol 300 mg tablet RxNorm: 565713 1 Tablet(s) PO QD TAKE ONE TABLET BY MOUTH EVERY DAY 11/20/2014 02/16/2015 Inactive Bystolic 10 mg tablet RxNorm: 932755 1 Tablet(s) PO QAM TAKE ONE TABLET BY MOUTH EVERY MORNING 11/20/2014 04/22/2015 Inactive Klor-Con 8 mEq tablet,extended release RxNorm: 309778 1 Tablet( s) PO BID 11/20/2014 02/17/2015 Inactive baclofen 20 mg tablet RxNorm: 612323 1 Tablet(s) PO TID as needed 0 11/20/2014 01/21/2019 Inactive baclofen 20 mg tablet RxNorm: 276784 1 Tablet(s) PO TID as needed 0 10/27/2014 11/19/2014 Inactive baclofen 20 mg tablet RxNorm: 515305 1 Tablet(s) PO TID as needed 0 10/26/2014 03/01/2015 Inactive allopurinol 300 mg tablet RxNorm: 831621 1 Tablet(s) PO QD TAKE ONE TABLET BY MOUTH EVERY DAY 10/26/2014 11/20/2014 Inactive Bystolic 10 mg tablet RxNorm: 221117 1 Tablet(s) PO QAM TAKE ONE TABLET BY MOUTH EVERY MORNING 10/26/2014 11/20/2014 Inactive clonidine HCl 0.1 mg tablet RxNorm: 448536 1 Tablet(s) PO TID 09/2805/27/2019 Inactive replaces 0.2mg dose clonidine HCl 0.1 mg tablet RxNorm: 179544 1 Tablet(s) PO TID 09/2802/18/2015 Inactive replaces 0.2mg dose baclofen 20 mg tablet RxNorm: 969518 1 Tablet(s) PO TID as needed 1 11/01/2013 08/30/2014 Inactive Lipitor 10 mg tablet RxNorm: 406488 1 Tablet(s) PO QHS 08/31/2014 Inactive baclofen 20 mg tablet RxNorm: 063351 1 Tablet(s) PO TID as needed 1 11/01/2013 10/26/2014 Inactive triamterene 75 mg-hydrochlorothiazide 50 mg tablet RxNorm: 3 78409 1 Tablet(s) PO QD 08/31/2014 02/26/2015 Inactive Klor-Con 8 mEq tablet,extended release RxNorm: 964144 1 Tablet( s) PO BID 08/31/2014 11/20/2014 Inactive baclofen 20 mg tablet RxNorm: 122541 1 Tablet(s) PO TID as needed 1 09/30/2013 10/25/2014 Inactive baclofen 20 mg tablet RxNorm: 838505 1 Tablet(s) PO TID as needed 1 09/30/2013 08/31/2014 Inactive omeprazole 40 mg capsule,delayed release RxNorm: 852128 1 Capsu le(s) PO QD 07/21/2014 07/23/2015 Inactive Flonase 50 mcg/actuation nasal spray,suspension RxNorm: 8963 23 1 [place] NASAL BID 07/15/2014 04/09/2017 Inactive hydrocodone 10 mg-acetaminophen 325 mg tablet RxNorm: 111893 1-2 Tablet(s) QID as needed for pain TAKE ONE TO TWO TABLETS BY MOUTH FOUR TIMES A DAY . MUST LAST 30 DAYS 06/30/2014 07/27/2014 Inactive (Response to an electronic controlled substance refill request - RxReferenceNumber: [id number]) baclofen 20 mg tablet RxNorm: 441251 1 Tablet(s) PO TID as needed 1 07/31/2014 Inactive Singulair 10 mg tablet RxNorm: 856132 1 Tablet(s) PO QD TAKE ONE TABLET BY MOUTH EVERY DAY 05/25/2014 11/20/2014 Inactive Bystolic 10 mg tablet RxNorm: 530868 TAKE ONE TABLET BY MOUTH E VERY MORNING 05/25/2014 09/21/2014 Inactive allopurinol 300 mg tablet RxNorm: 697812 1 Tablet(s) PO QD TAKE ONE TABLET BY MOUTH EVERY DAY 05/25/2014 10/21/2014 Inactive baclofen 20 mg tablet RxNorm: 236542 1 Tablet(s) PO TID as needed 0 05/25/2014 06/29/2014 Inactive allopurinol 300 mg tablet RxNorm: 722907 TAKE ONE TABLET BY LOPEZ TH EVERY DAY 05/25/2014 09/21/2014 Inactive Singulair 10 mg tablet RxNorm: 591699 1 Tablet(s) PO QD TAKE ONE TABLET BY MOUTH EVERY DAY 05/25/2014 05/24/2014 Inactive Bystolic 10 mg tablet RxNorm: 988353 1 Tablet(s) PO QAM TAKE ONE TABLET BY MOUTH EVERY MORNING 05/25/2014 10/21/2014 Inactive metolazone 2.5 mg tablet RxNorm: 627892 1 Tablet(s) PO QD as ne eded for edema 05/18/2014 04/25/2015 Inactive Lasix 40 mg tablet RxNorm: 841371 1 Tablet(s) PO QAM s hould take potassium supplementation with this medication 05/14/2014 05/17/2014 Inactive hydrocodone 10 mg-acetaminophen 325 mg tablet RxNorm: 939649 1-2 Tablet(s) QID as needed for pain TAKE ONE TO TWO TABLETS BY MOUTH FOUR TIMES A DAY . MUST LAST 30 DAYS 05/07/2014 06/05/2014 Inactive (Response to an electronic controlled substance refill request - RxReferenceNumber: [id number]) alprazolam 0.5 mg tablet RxNorm: 625438 TAKE ONE TABLET BY MOUTH TWICE A DAY , MUST LAST 30 DAYS 05/07/2014 05/22/2016 Inactive (Response to a n electronic controlled substance refill request - RxReferenceNumber: [id number]) diclofenac sodium 75 mg tablet,delayed release RxNorm: 19792 6 1 Tablet(s) PO BID for pain 04/24/2014 07/20/2014 Inactive Celebrex 200 mg capsule RxNorm: 538912 TAKE ONE CAPSULE BY MOUT H EVERY DAY 04/24/2014 07/20/2014 Inactive alprazolam 0.5 mg tablet RxNorm: 596052 TAKE ONE TABLET BY MOUTH TWICE A DAY , MUST LAST 30 DAYS 03/24/2014 04/22/2014 Inactive (Response to a n electronic controlled substance refill request - RxReferenceNumber: [id number]) diclofenac sodium 75 mg tablet,delayed release RxNorm: 25306 6 1 Tablet(s) PO BID for pain 03/24/2014 04/24/2014 Inactive clonidine HCl 0.1 mg tablet RxNorm: 059935 1 Tablet(s) PO TID 03/2409/28/2014 Inactive replaces 0.2mg dose Klor-Con 8 mEq tablet,extended release RxNorm: 305345 1 Tablet( s) PO BID 02/26/2014 08/31/2014 Inactive diclofenac sodium 75 mg tablet,delayed release RxNorm: 39229 6 1 Tablet(s) PO BID for pain 02/25/2014 03/24/2014 Inactive hydrocodone 10 mg-acetaminophen 325 mg tablet RxNorm: 985821 1-2 Tablet(s) QID as needed for pain TAKE ONE TO TWO TABLETS BY MOUTH FOUR TIMES A DAY . MUST LAST 30 DAYS 02/25/2014 03/26/2014 Inactive (Response to an electronic controlled substance refill request - RxReferenceNumber: [id number]) alprazolam 0.5 mg tablet RxNorm: 411117 Tablet(s) PO BI D as needed for anxiety TAKE ONE TABLET BY MOUTH TWICE A DAY , MUST LAST 30 DAYS 02/25/2014 Inactive (Response to an electronic controlled [place] bstance refill request - RxReferenceNumber: [id number]) [AttnRPh: Saving apply/adjudicate RxGRP:SG20 RxBIN:[id number] RxN: ID#:[id number]] alprazolam 0.5 mg tablet RxNorm: 412684 Tablet(s) TAKE ONE TABLET BY MOUTH TWICE A DAY , MUST LAST 30 DAYS 01/27/2014 02/24/2014 Inactive (Respo nse to an electronic controlled substance refill request - RxReferenceNumber: [id number]) [AttnRPh: Saving apply/adjudicate RxGRP:SG20 RxBIN:[id number] RxPCN: ID#:[id number]] hydrocodone 10 mg-acetaminophen 325 mg tablet RxNorm: 190721 1-2 Tablet(s) QID as needed for pain TAKE ONE TO TWO TABLETS BY MOUTH FOUR TIMES A DAY . MUST LAST 30 DAYS 01/27/2014 02/24/2014 Inactive (Response to an electronic controlled substance refill request - RxReferenceNumber: [id number]) alprazolam 0.5 mg tablet RxNorm: 899476 TAKE ONE TABLET BY MOUTH TWICE A DAY , MUST LAST 30 DAYS 01/27/2014 01/26/2014 Inactive (Response to a n electronic controlled substance refill request - RxReferenceNumber: [id number]) Premarin 1.25 mg tablet RxNorm: 707465 1-2 Tablet(s) PO QD 01/28/20 14 07/25/2014 Inactive alprazolam 0.5 mg tablet RxNorm: 714410 TAKE ONE TABLET BY MOUTH TWICE A DAY , MUST LAST 30 DAYS 01/27/2014 01/27/2014 Inactive (Response to a n electronic controlled substance refill request - RxReferenceNumber: [id number]) hydrocodone 10 mg-acetaminophen 325 mg tablet RxNorm: 304930 TAKE ONE TO TWO TABLETS BY MOUTH FOUR TIMES A DAY . MUST LAST 30 DAYS 01/27/20142013 Inactive (Response to an electronic controlled [place] bstance refill request - RxReferenceNumber: [id number]) Celebrex 200 mg capsule RxNorm: 297612 1 Capsule(s) PO QD TAKE ONE CAPSULE BY MOUTH EVERY DAY 12/29/2013 04/27/2014 Inactive hydrocodone 10 mg-acetaminophen 325 mg tablet RxNorm: 660099 1-2 Tablet(s) PO QID as needed for severe pain 12/29/2013 01/27/2014 Inactive allopurinol 300 mg tablet RxNorm: 721149 1 Tablet(s) PO QD TAKE ONE TABLET BY MOUTH EVERY DAY 12/29/2013 05/24/2014 Inactive alprazolam 0.5 mg tablet RxNorm: 897531 TAKE ONE TABLET BY MOUTH TWICE A DAY , MUST LAST 30 DAYS 12/29/2013 01/27/2014 Inactive (Response to a n electronic controlled substance refill request - RxReferenceNumber: [id number]) Celebrex 200 mg capsule RxNorm: 100687 1 Capsule(s) PO QD TAKE ONE CAPSULE BY MOUTH EVERY DAY 12/29/2013 12/29/2013 Inactive Bystolic 10 mg tablet RxNorm: 690501 1 Tablet(s) PO QAM TAKE ONE TABLET BY MOUTH EVERY MORNING 12/29/2013 05/24/2014 Inactive Bystolic 10 mg tablet RxNorm: 836091 1 Tablet(s) PO QAM TAKE ONE TABLET BY MOUTH EVERY MORNING 12/29/2013 12/29/2013 Inactive Singulair 10 mg tablet RxNorm: 110084 1 Tablet(s) PO QD TAKE ONE TABLET BY MOUTH EVERY DAY 12/29/2013 05/25/2014 Inactive hydrocodone 10 mg-acetaminophen 325 mg tablet RxNorm: 753010 TAKE ONE TO TWO TABLETS BY MOUTH FOUR TIMES A DAY . MUST LAST 30 DAYS 12/29/20132013 Inactive (Response to an electronic controlled [place] bstance refill request - RxReferenceNumber: [id number]) Trazadone 75mg Tablet RxNorm: 1 Tablet(s) PO QHS as needed 03/23/2014 Inactive Trazadone 75mg Tablet RxNorm: 1 Tablet(s) PO QHS 12/24/20132014 Inactive Soma 350 mg tablet RxNorm: 497903 Tablet(s) PO TAKE ON E TABLET BY MOUTH THREE TIMES A DAY NEEDED FOR MUSCLE SPASMS. THIS MUST LAST 30 DAYS BETWEEN REFILLS. 12/10/2013 12/22/2013 Inactive (Appended: Cont rolled substance eRx refill - RxReferenceNumber: [id number]) diclofenac sodium 75 mg tablet,delayed release RxNorm: 60812 6 1 Tablet(s) PO BID for pain 12/10/2013 02/24/2014 Inactive allopurinol 300 mg tablet RxNorm: 071667 1 Tablet(s) PO QD 11/20/19 14 12/29/2013 Inactive alprazolam 0.5 mg tablet RxNorm: 296727 2 Tablet(s) PO BID 11/13/19 14 12/29/2013 Inactive prn clonidine 0.1 mg tablet RxNorm: 351685 1 Tablet(s) PO TID 11/12/2013 02/09/2014 Inactive replaces 0.2mg dose Klor-Con M20 mEq tablet,extended release RxNorm: 060212 2 Tablet(s) PO BID to use with lasix 11/12/2013 05/10/2014 Inactive Singulair 10 mg tablet RxNorm: 153206 1 Tablet(s) PO QD 11/12/2013 Inactive hydrocodone 10 mg-acetaminophen 325 mg tablet RxNorm: 829466 1-2 Tablet(s) PO QID as needed for severe pain 11/12/2013 12/28/2013 Inactive Bystolic 10 mg tablet RxNorm: 716049 1 Tablet(s) PO QAM 11/12/2013 Inactive Soma 350 mg tablet RxNorm: 325634 Tablet(s) PO TAKE ON E TABLET BY MOUTH THREE TIMES A DAY NEEDED FOR MUSCLE SPASMS. THIS MUST LAST 30 DAYS BETWEEN REFILLS. 10/13/2013 12/10/2013 Inactive (Appended: Cont rolled substance eRx refill - RxReferenceNumber: [id number]) hydrocodone 10 mg-acetaminophen 325 mg tablet RxNorm: 966735 1-2 Tablet(s) PO QID as needed for severe pain 10/03/2013 11/11/2013 Inactive diclofenac sodium 75 mg tablet,delayed release RxNorm: 05157 8 1 Tablet(s) PO BID for pain 09/11/2013 12/10/2013 Inactive alprazolam 0.5 mg tablet RxNorm: 276762 1 Tablet(s) PO BID May refill on 04/26/13 09/01/2013 10/30/2013 Inactive prn hydrocodone 10 mg-acetaminophen 325 mg tablet RxNorm: 029134 1-2 Tablet(s) PO QID as needed for severe pain 09/01/2013 10/02/2013 Inactive triamterene 75 mg-hydrochlorothiazide 50 mg tablet RxNorm: 3 29892 1 Tablet(s) PO QD 08/04/2013 08/31/2014 Inactive cyclobenzaprine 10 mg tablet RxNorm: 615750 1 Tablet(s) PO TID prn spasm 08/04/2013 08/13/2013 Inactive clonidine 0.1 mg tablet RxNorm: 463096 1 Tablet(s) PO TID 08/04/2013 11/11/2013 Inactive replaces 0.2mg dose cyclobenzaprine 10 mg tablet RxNorm: 936267 1 Tablet(s) PO TID prn spasm 07/23/2013 08/01/2013 Inactive hydrocodone 10 mg-acetaminophen 325 mg tablet RxNorm: 413321 2 1-2 Tablet(s) PO QID as needed for severe pain 06/09/2013 08/07/2013 Inactive Singulair 10 mg tablet RxNorm: 499225 1 Tablet(s) PO QD 05/29/2013 Inactive Klor-Con 8 mEq tablet,extended release RxNorm: 544038 1 Tablet( s) PO BID 05/29/2013 02/26/2014 Inactive allopurinol 300 mg tablet RxNorm: 767319 1 Tablet(s) PO QD 05/29/20 13 11/19/2013 Inactive Bystolic 10 mg tablet RxNorm: 519145 1 Tablet(s) PO QAM take one daily in the morning. 05/29/2013 11/11/2013 Inactive scopolamine 1.5 mg 72 hr Transderm Patch RxNorm: 307497 Application TD Q72H for motion sickness 05/26/2013 07/22/2013 Inactive Soma 350 mg tablet RxNorm: 871552 1 Tablet(s) PO TID as needed for spasm 05/19/2013 10/13/2013 Inactive diclofenac sodium 75 mg tablet,delayed release RxNorm: 09913 8 1 Tablet(s) PO BID for pain 05/14/2013 07/22/2013 Inactive allopurinol 300 mg tablet RxNorm: 261443 1 Tablet(s) PO QD 04/25/20 13 05/28/2013 Inactive alprazolam 0.5 mg tablet RxNorm: 417151 1 Tablet(s) PO BID May refill on 04/26/13 04/25/2013 06/23/2013 Inactive prn Celebrex 200 mg capsule RxNorm: 991692 1 Capsule(s) PO QD 04/16/2013 12/29/2013 Inactive alprazolam 0.5 mg tablet RxNorm: 870319 1 Tablet(s) PO BID May refill on 04/26/13 04/16/2013 04/24/2013 Inactive prn Soma 350 mg tablet RxNorm: 205252 1 Tablet(s) PO TID as needed for spasm 04/16/2013 No Stop Date Active Lasix 40 mg tablet RxNorm: 263765 1 Tablet(s) PO QAM s hould take potassium supplementation with this medication 04/16/2013 06/14/2013 Inactive clonidine 0.1 mg tablet RxNorm: 963571 1 Tablet(s) PO TID 04/16/2013 08/03/2013 Inactive replaces 0.2mg dose prednisone 20 mg tablet RxNorm: 328499 1 Tablet(s) PO BID 04/16/2013 04/20/2013 Inactive diclofenac sodium 75 mg tablet,delayed release RxNorm: 04742 8 1 Tablet(s) PO BID for pain 04/14/2013 05/13/2013 Inactive hydrocodone 10 mg-acetaminophen 325 mg tablet RxNorm: 941596 2 1-2 Tablet(s) PO QID as needed for severe pain 04/14/2013 No Stop Date Active Lasix 40 mg tablet RxNorm: 409763 1 Tablet(s) PO QAM s hould take potassium supplementation with this medication 03/31/2013 04/15/2013 Inactive Celebrex 200 mg capsule RxNorm: 159216 1 Capsule(s) PO QD 03/31/2013 04/15/2013 Inactive alprazolam 0.5 mg tablet RxNorm: 037989 1 Tablet(s) PO BID 03/28/20 13 04/15/2013 Inactive prn hydrocodone 10 mg-acetaminophen 325 mg tablet RxNorm: 119973 2 1-2 Tablet(s) PO QID as needed for severe pain 03/10/2013 No Stop Date Active metformin ER 500 mg 24 hr tablet,extended release RxNorm: 86 1018 1 Tablet(s) PO QD 03/06/2013 07/22/2013 Inactive clindamycin 300 mg capsule RxNorm: 825461 2 Capsule(s) PO TID 03/0503/14/2013 Inactive Zaroxolyn 2.5 mg tablet RxNorm: 338188 1 Tablet(s) PO QAM 03/05/2013 05/19/2015 Inactive amlodipine 10 mg tablet RxNorm: 371901 1 Tablet(s) PO QD 03/03/2013 0 05/25/2013 Inactive Norvasc 10 mg tablet RxNorm: 203199 1 Tablet(s) PO QD 02/28/201307/11 Inactive Celebrex 200 mg capsule RxNorm: 836350 1 Capsule(s) PO QD 02/28/2013 03/30/2013 Inactive diclofenac sodium 75 mg tablet,delayed release RxNorm: 01853 8 1 Tablet(s) PO BID for pain 02/14/2013 03/15/2013 Inactive Soma 350 mg tablet RxNorm: 243227 1 Tablet(s) PO TID as needed for spasm 02/14/2013 No Stop Date Active hydrocodone 10 mg-acetaminophen 325 mg tablet RxNorm: 202900 2 1-2 Tablet(s) PO QID as needed for severe pain 02/14/2013 No Stop Date Active Norvasc 10 mg tablet RxNorm: 897196 1 Tablet(s) PO QD 02/10/201302/09 Inactive Celebrex 200 mg capsule RxNorm: 374930 1 Capsule(s) PO QD 01/27/2013 01/26/2013 Inactive Premarin 1.25 mg tablet RxNorm: 690348 1-2 Tablet(s) PO QD 01/28/20 13 06/25/2013 Inactive alprazolam 0.5 mg tablet RxNorm: 721598 1 Tablet(s) PO BID 01/28/20 13 02/25/2013 Inactive prn amlodipine 5 mg tablet RxNorm: 990311 1 Tablet(s) PO QD 01/27/2013 Inactive Celebrex 200 mg capsule RxNorm: 263828 1 Capsule(s) PO QD 01/27/2013 02/27/2013 Inactive gabapentin 600 mg tablet RxNorm: 848972 1 Tablet(s) PO QHS 01/16/20 13 07/22/2013 Inactive Soma 350 mg tablet RxNorm: 201957 1 Tablet(s) PO TID as needed for spasm 01/15/2013 No Stop Date Active hydrocodone 10 mg-acetaminophen 325 mg tablet RxNorm: 993935 2 1-2 Tablet(s) PO QID as needed for severe pain 01/15/2013 No Stop Date Active Soma 350 mg tablet RxNorm: 090182 1 Tablet(s) PO TID as needed for spasm 01/13/2013 No Stop Date Active alprazolam 0.5 mg tablet RxNorm: 064445 1 Tablet(s) PO BID 12/31/19 13 01/26/2013 Inactive prn diclofenac sodium 75 mg tablet,delayed release RxNorm: 57666 8 1 Tablet(s) PO BID for pain 12/09/2012 01/07/2013 Inactive gabapentin 600 mg tablet RxNorm: 765463 1 Tablet(s) PO QHS 12/10/19 13 01/07/2013 Inactive hydrocodone 10 mg-acetaminophen 325 mg tablet RxNorm: 294997 2 1-2 Tablet(s) PO QID as needed for severe pain 12/02/2012 No Stop Date Active Levaquin 750 mg tablet RxNorm: 557228 1 Tablet(s) PO QD 11/21/2012 Inactive Singulair 10 mg tablet RxNorm: 516748 1 Tablet(s) PO QD 11/11/2012 Inactive clonidine 0.2 mg tablet RxNorm: 638132 1 Tablet(s) PO TID 11/11/2012 04/15/2013 Inactive alprazolam 0.5 mg tablet RxNorm: 269689 1 Tablet(s) PO BID 11/12/19 13 12/10/2012 Inactive prn Klor-Con 8 mEq tablet,extended release RxNorm: 720008 1 Tablet( s) PO BID 11/11/2012 03/04/2013 Inactive hydrocodone 10 mg-acetaminophen 325 mg tablet RxNorm: 966187 2 1-2 Tablet(s) PO QID as needed for severe pain 11/06/2012 No Stop Date Active alprazolam 0.5 mg tablet RxNorm: 626494 1 Tablet(s) PO BID 10/15/19 13 11/10/2012 Inactive prn hydrocodone-acetaminophen 10 mg-325 mg tablet RxNorm: 815319 2 1-2 Tablet(s) PO QID as needed for severe pain 10/10/2012 10/09/2012 Inactive allopurinol 300 mg tablet RxNorm: 729775 1 Tablet(s) PO QD 09/20/19 13 12/18/2012 Inactive alprazolam 0.5 mg tablet RxNorm: 354098 1 Tablet(s) PO BID 09/17/19 13 10/14/2012 Inactive prn hydrocodone-acetaminophen 10 mg-325 mg tablet RxNorm: 244689 2 1-2 Tablet(s) PO QID as needed for severe pain 08/22/2012 08/21/2012 Inactive Norvasc 10 mg tablet RxNorm: 454477 1 Tablet(s) PO QD 08/12/201201/10 Inactive Premarin 1.25 mg tablet RxNorm: 198936 1-2 Tablet(s) PO QD 07/30/20 12 12/26/2012 Inactive alprazolam 0.5 mg tablet RxNorm: 276170 1 Tablet(s) PO BID 07/29/20 12 08/27/2012 Inactive prn Klor-Con 8 mEq tablet,extended release RxNorm: 534920 1 Tablet( s) PO BID 07/29/2012 11/10/2012 Inactive hydrocodone-acetaminophen 10 mg-325 mg tablet RxNorm: 372424 2 1-2 Tablet(s) PO QID as needed for severe pain 07/29/2012 No Stop Date Active Premarin 1.25 mg tablet RxNorm: 832358 1-2 Tablet(s) PO QD 07/29/20 12 07/29/2012 Inactive clonidine 0.2 mg tablet RxNorm: 134898 1 Tablet(s) PO TID 07/29/2012 10/28/2012 Inactive ketorolac 10 mg tablet RxNorm: 622556 1 Tablet(s) PO QID prn he adache 07/18/2012 No Stop Date Active hydrocodone-acetaminophen 10 mg-325 mg tablet RxNorm: 973571 2 1-2 Tablet(s) PO QID as needed for severe pain 07/03/2012 No Stop Date Active amlodipine 5 mg tablet RxNorm: 724013 1 Tablet(s) PO QD 07/02/2012 Inactive allopurinol 300 mg tablet RxNorm: 528201 1 Tablet(s) PO QD 07/02/20 12 09/19/2012 Inactive Celebrex 200 mg capsule RxNorm: 636979 1 Capsule(s) PO QD for j oint pain 06/26/2012 10/23/2012 Inactive diclofenac sodium 75 mg tablet,delayed release RxNorm: 13268 8 1 Tablet(s) PO BID for pain 06/19/2012 09/16/2012 Inactive hydrocodone-acetaminophen 10 mg-325 mg tablet RxNorm: 965574 2 1-2 Tablet(s) PO QID as needed for severe pain 06/10/2012 No Stop Date Active alprazolam 0.5 mg tablet RxNorm: 783752 1 Tablet(s) PO BID 06/03/20 12 07/02/2012 Inactive prn ketorolac 10 mg tablet RxNorm: 577088 1 Tablet(s) PO Q8H 05/27/2012 0 01/21/2019 Inactive as needed for headache hydrocodone-acetaminophen 10 mg-325 mg tablet RxNorm: 802730 2 1-2 Tablet(s) PO QID as needed for severe pain 05/15/2012 No Stop Date Active allopurinol 300 mg tablet RxNorm: 139578 1 Tablet(s) PO QD 05/14/20 12 06/12/2012 Inactive allopurinol 300 mg tablet RxNorm: 327918 1 Tablet(s) PO QD 05/14/20 12 05/13/2012 Inactive amlodipine 5 mg tablet RxNorm: 505513 1 Tablet(s) PO QD 05/01/2012 Inactive amlodipine 5 mg Tab RxNorm: 497497 1 Tablet(s) PO QD 05/01/201204/30 Inactive Celebrex 200 mg capsule RxNorm: 224652 1 Capsule(s) PO QD for j oint pain 05/01/2012 06/25/2012 Inactive Singulair 10 mg tablet RxNorm: 169875 1 Tablet(s) PO QD 05/01/2012 Inactive alprazolam 0.5 mg tablet RxNorm: 450274 1 Tablet(s) PO BID 05/01/2005/30/2012 Inactive prn Celebrex 200 mg Cap RxNorm: 497130 1 Capsule(s) PO QD for joint radu n 05/01/2012 04/30/2012 Inactive hydrocodone-acetaminophen 10 mg-325 mg tablet RxNorm: 795966 2 1-2 Tablet(s) PO QID as needed for severe pain 04/19/2012 No Stop Date Active Lasix 40 mg tablet RxNorm: 971405 1 Tablet(s) PO QAM alan hould take potassium supplementation with this medication 04/05/2012 06/03/2012 Inactive alprazolam 0.5 mg Tab RxNorm: 998488 1 Tablet(s) PO BID 04/05/2012 Inactive prn hydrocodone-acetaminophen 10 mg-325 mg Tab RxNorm: 0889042 1-2 Tablet(s) PO QID as needed for severe pain 03/25/2012 03/24/2012 Inactive clonidine 0.2 mg Tab RxNorm: 548889 1 Tablet(s) PO TID 03/08/2012 Inactive alprazolam 0.5 mg Tab RxNorm: 430296 1 Tablet(s) PO BID 03/08/2012 Inactive prn Soma 350 mg tablet RxNorm: 158742 1 Tablet(s) PO TID for spasm 02/0903/18/2012 Inactive clonidine 0.2 mg tablet RxNorm: 864649 1 Tablet(s) PO TID 03/08/2012 07/28/2012 Inactive Celebrex 200 mg Cap RxNorm: 793712 1 Capsule(s) PO QD for joint radu n 03/01/2012 04/29/2012 Inactive amlodipine 5 mg Tab RxNorm: 154259 1 Tablet(s) PO QD 02/26/201202/24 Inactive amlodipine 5 mg Tab RxNorm: 091248 1 Tablet(s) PO QD 02/26/201204/25 Inactive Bactroban 2 % Ointment RxNorm: 839807 Application TOP QID to sores 02/23/2012 No Stop Date Active amlodipine 2.5 mg tablet RxNorm: 424116 1 Tablet(s) PO QHS 02/20/20 12 02/25/2012 Inactive doxycycline hyclate 100 mg Cap RxNorm: 8278021 1 Capsule(s) PO BID 02/20/2012 02/29/2012 Inactive hydrocodone-acetaminophen 10 mg-325 mg Tab RxNorm: 3190519 1-2 T ablet(s) PO QID 02/08/2012 No Stop Date Active alprazolam 0.5 mg Tab RxNorm: 959632 1 Tablet(s) PO BID 02/08/2012 Inactive prn Singulair 10 mg Tab RxNorm: 479404 1 Tablet(s) PO QD 02/08/201204/30 Inactive Soma 350 mg Tab RxNorm: 131223 1 Tablet(s) PO TID for spasm 012 03/07/2012 Inactive Soma 350 mg Tab RxNorm: 938833 1 Tablet(s) PO TID for spasm 012 02/05/2012 Inactive diclofenac sodium 75 mg tablet,delayed release RxNorm: 18259 8 1 Tablet(s) PO BID for pain 02/01/2012 03/18/2012 Inactive Celebrex 200 mg Cap RxNorm: 967623 1 Capsule(s) PO QD for joint radu n 01/30/2012 02/28/2012 Inactive Lasix 40 mg Tab RxNorm: 068803 1 Tablet(s) PO QAM 01/24/2012 03/18/20 12 Inactive potassium chloride ER 20 mEq tablet,extended release(part/cr yst) RxNorm: 476033 2 Tablet(s) PO BID 01/24/2012 02/22/2012 Inactive alprazolam 0.5 mg Tab RxNorm: 140397 1 Tablet(s) PO BID 01/11/2012 Inactive prn hydrocodone-acetaminophen 10 mg-325 mg Tab RxNorm: 1087096 1-2 T ablet(s) PO QID 01/11/2012 No Stop Date Active Ambien 10 mg Tab RxNorm: 078026 1 Tablet(s) PO QHS 01/11/2012 012 Inactive Klor-Con 8 mEq Tab RxNorm: 446912 1 Tablet(s) PO BID 01/11/201201/22 Inactive diclofenac sodium 75 mg Tab, Delayed Release RxNorm: 114817 1 Tablet(s) PO BID for pain 01/10/2012 01/31/2012 Inactive Ambien 10 mg Tab RxNorm: 258285 1 Tablet(s) PO QHS 12/11/2011 012 Inactive alprazolam 0.5 mg Tab RxNorm: 922057 1 Tablet(s) PO BID 12/11/2011 Inactive prn hydrocodone 10 mg-acetaminophen 325 mg tablet RxNorm: 718565 1-2 Tablet(s) PO TID 11/28/2011 No Stop Date Active as needed for pa in - Previous quantity #240, will start dosing for #180 in April 2011 per Doctor Td. Ambien 10 mg Tab RxNorm: 551455 1 Tablet(s) PO QHS 11/09/2011 012 Inactive alprazolam 0.5 mg Tab RxNorm: 640132 1 Tablet(s) PO BID 11/09/2011 Inactive prn hydrocodone-acetaminophen 10 mg-325 mg Tab RxNorm: 3558445 1-2 T ablet(s) PO TID 11/06/2011 No Stop Date Active as needed for pain - Previous quantity #240, will start dosing for #180 in April 2011 per Doctor Td. Singulair 10 mg Tab RxNorm: 004965 1 Tablet(s) PO QD 10/13/201110/12 Inactive Singulair 10 mg Tab RxNorm: 097207 1 Tablet(s) PO QD 10/13/201102/06 Inactive hydrocodone-acetaminophen 10 mg-325 mg Tab RxNorm: 8962196 1-2 T ablet(s) PO TID 10/10/2011 10/09/2011 Inactive as needed for pain - Previous quantity #240, will start dosing for #180 in April 2011 per Doctor Td. hydrocodone-acetaminophen 10 mg-325 mg Tab RxNorm: 0155056 1-2 T ablet(s) PO TID 10/09/2011 No Stop Date Active as needed for pain - Previous quantity #240, will start dosing for #180 in April 2011 per Doctor Td. Klor-Con 8 mEq Tab RxNorm: 138363 1 Tablet(s) PO BID 10/02/201101/09 Inactive triamterene 75 mg-hydrochlorothiazide 50 mg tablet RxNorm: 3 87285 1 Tablet(s) PO QD 09/14/2011 03/06/2013 Inactive Ambien 10 mg Tab RxNorm: 651049 1 Tablet(s) PO QHS 09/14/2011 012 Inactive hydrocodone-acetaminophen 10 mg-325 mg Tab RxNorm: 0086739 1-2 T ablet(s) PO TID 09/14/2011 No Stop Date Active as needed for pain - Previous quantity #240, will start dosing for #180 in April 2011 per Doctor Td. alprazolam 0.5 mg Tab RxNorm: 089664 1 Tablet(s) PO BID 09/14/2011 Inactive prn Zithromax 500 mg Tab RxNorm: 9090925 1 Tablet(s) PO QD 09/13/201106/2012 Inactive prednisone 20 mg Tab RxNorm: 309391 1 Tablet(s) PO BID 08/31/2011 Inactive Ambien 10 mg Tab RxNorm: 156849 1 Tablet(s) PO QHS 08/17/2011 011 Inactive hydrocodone-acetaminophen 10 mg-325 mg Tab RxNorm: 0970702 1-2 T ablet(s) PO TID 08/17/2011 No Stop Date Active as needed for pain - Previous quantity #240, will start dosing for #180 in April 2011 per Doctor Td. clonidine 0.2 mg Tab RxNorm: 707236 1 Tablet(s) PO TID 08/17/201112/2011 Inactive Ambien 10 mg Tab RxNorm: 742410 1 Tablet(s) PO QHS 08/17/2011 019 Inactive alprazolam 0.5 mg Tab RxNorm: 723888 1 Tablet(s) PO BID 08/17/2011 Inactive prn hydrocodone-acetaminophen 10 mg-325 mg Tab RxNorm: 0965641 1-2 T ablet(s) PO TID 08/17/2011 08/16/2011 Inactive as needed for pain - Previous quantity #240, will start dosing for #180 in April 2011 per Doctor Td. Singulair 10 mg Tab RxNorm: 504905 1 Tablet(s) PO QD 08/17/201108/16 Inactive Klor-Con 8 mEq Tab RxNorm: 350435 1 Tablet(s) PO QD 08/17/20112011 Inactive alprazolam 0.5 mg Tab RxNorm: 995451 1 Tablet(s) PO BID 07/20/2011 Inactive prn Ambien 10 mg Tab RxNorm: 545859 1 Tablet(s) PO QHS 07/20/2011 012 Inactive Singulair 10 mg Tab RxNorm: 890009 1 Tablet(s) PO QD 07/20/201107/19 Inactive Premarin 1.25 mg tablet RxNorm: 423055 2 Tablet(s) PO QD 07/20/2011 0 01/21/2019 Inactive Premarin 1.25 mg tablet RxNorm: 206183 1-2 Tablet(s) PO QD 07/20/20 11 12/16/2011 Inactive Premarin 1.25 mg Tab RxNorm: 340842 1-2 Tablet(s) PO QD 07/06/2011 Inactive alprazolam 0.5 mg Tab RxNorm: 396929 1 Tablet(s) PO BID 06/22/2011 Inactive prn alprazolam 0.5 mg Tab RxNorm: 762124 1 Tablet(s) PO BID 06/22/2011 Inactive prn Premarin 1.25 mg Tab RxNorm: 657269 1 Tablet(s) PO QD m ay do 90 day fill if desired 06/22/2011 07/05/2011 Inactive hydrocodone-acetaminophen 10 mg-325 mg Tab RxNorm: 3133372 1-2 T ablet(s) PO TID 06/22/2011 No Stop Date Active as needed for pain - Previous quantity #240, will start dosing for #180 in April 2011 per Doctor Td. clonidine 0.2 mg Tab RxNorm: 823518 1 Tablet(s) PO TID 05/25/201103/2011 Inactive triamterene-hydrochlorothiazide 75 mg-50 mg Tab RxNorm: 3108 18 1 Tablet(s) PO QD 05/25/2011 09/13/2011 Inactive alprazolam 0.5 mg Tab RxNorm: 696459 1 Tablet(s) PO BID 05/25/2011 Inactive prn hydrocodone-acetaminophen 10 mg-325 mg Tab RxNorm: 1731699 1-2 T ablet(s) PO TID 05/25/2011 No Stop Date Active as needed for pain - Previous quantity #240, will start dosing for #180 in April 2011 per Doctor Td. Robaxin-750 750 mg Tab RxNorm: 629119 2 Tablet(s) PO QHS 05/22/2011 1 Inactive prn spasm hydrocodone-acetaminophen 10 mg-325 mg Tab RxNorm: 2859340 1-2 T ablet(s) PO TID 04/26/2011 No Stop Date Active as needed for pain - Previous quantity #240, will start dosing for #180 in April 2011 per Doctor Td. alprazolam 0.5 mg Tab RxNorm: 559346 1 Tablet(s) PO BID 04/25/2011 Inactive prn Klor-Con 8 mEq Tab RxNorm: 835063 1 Tablet(s) PO QD 03/30/20112010 Inactive Klor-Con 8 mEq Tab RxNorm: 603686 1 Tablet(s) PO QD 03/29/20112010 Inactive hydrocodone-acetaminophen 10 mg-325 mg Tab RxNorm: 3873990 1-2 T ablet(s) PO TID 03/20/2011 04/25/2011 Inactive as needed for pain - Previous quantity #240, will start dosing for #180 in April 2011 per Doctor Td. alprazolam 0.5 mg Tab RxNorm: 524132 1 Tablet(s) PO BID prn 011 03/30/2011 Inactive Ambien 10 mg Tab RxNorm: 248458 1 Tablet(s) PO QHS 03/01/2011 011 Inactive cyclobenzaprine 10 mg Tab RxNorm: 160426 1 Tablet(s) PO TID 011 03/18/2012 Inactive cyclobenzaprine 10 mg Tab RxNorm: 077657 1 Tablet(s) PO TID 011 01/08/2011 Inactive cyclobenzaprine 10 mg Tab RxNorm: 908985 1 Tablet(s) PO TID 011 12/20/2010 Inactive terbinafine 250 mg Tab RxNorm: 981295 1 Tablet(s) PO QD 12/12/2010 Inactive triamterene-hydrochlorothiazide 75 mg-50 mg Tab RxNorm: 3108 18 1 Tablet(s) PO QD 12/07/2010 06/04/2011 Inactive Klor-Con 8 8 mEq Tab RxNorm: 952345 1 Tablet(s) PO QD 12/07/201001/08 Inactive Premarin 1.25 mg Tab RxNorm: 664289 2 Tablet(s) PO QD 12/07/201001/08 Inactive clonidine 0.2 mg Tab RxNorm: 900011 1 Tablet(s) PO TID 12/07/2010 Inactive hydrocodone-acetaminophen 7.5 mg-650 mg Tab RxNorm: 398642 1 Ta blet(s) PO Q4H 12/05/2010 01/21/2019 Inactive hydrocodone-acetaminophen 7.5 mg-650 mg Tab RxNorm: 343738 1 Ta blet(s) PO Q4H 10/26/2010 11/14/2010 Inactive hydrocodone-acetaminophen 7.5 mg-650 mg Tab RxNorm: 297537 1 Ta blet(s) PO Q4H 10/13/2010 10/25/2010 Inactive hydrocodone-acetaminophen 7.5 mg-650 mg Tab RxNorm: 929436 1 Ta blet(s) PO Q4H 09/15/2010 09/12/2010 Inactive alprazolam 0.5 mg Tab RxNorm: 263768 1 Tablet(s) PO BID prn 011 09/12/2010 Inactive terbinafine 250 mg Tab RxNorm: 752922 1 Tablet(s) PO QD 09/05/2010 Inactive hydrocodone-acetaminophen 7.5 mg-650 mg Tab RxNorm: 446716 1 Ta blet(s) PO Q4H 08/29/2010 09/17/2010 Inactive alprazolam 0.5 mg Tab RxNorm: 250091 1 Tablet(s) PO BID prn 010 09/27/2010 Inactive alprazolam 0.5 mg Tab RxNorm: 091306 1 Tablet(s) PO BID prn 010 09/06/2010 Inactive Klor-Con 8 mEq Tab RxNorm: 147634 1 Tablet(s) PO QD 08/08/20102010 Inactive hydrocodone-acetaminophen 7.5 mg-650 mg Tab RxNorm: 151693 1 Ta blet(s) PO Q4H 08/08/2010 08/27/2010 Inactive Ambien 10 mg Tab RxNorm: 944780 1 Tablet(s) PO QHS 08/08/2010 Inactive clonidine 0.2 mg Tab RxNorm: 209201 1 Tablet(s) PO TID 08/08/2010 Inactive Premarin 1.25 mg Tab RxNorm: 075965 2 Tablet(s) PO QD 08/08/201009/12 Inactive Ambien 10 mg Tab RxNorm: 169354 1 Tablet(s) PO QHS 07/18/2010 Inactive alprazolam 0.5 mg Tab RxNorm: 720291 1 Tablet(s) PO BID prn 08/07/2010 Inactive hydrocodone-acetaminophen 7.5 mg-650 mg Tab RxNorm: 497596 1 Ta blet(s) PO Q4H 07/12/2010 07/31/2010 Inactive clonidine 0.2 mg Tab RxNorm: 224356 1 Tablet(s) PO TID 06/20/2010 Inactive terbinafine 250 mg Tab RxNorm: 903422 1 Tablet(s) PO QD 05/24/2010 Inactive Clonidine 0.2 mg Tab RxNorm: 208878 1 Tablet(s) PO TID 05/24/201006/2010 Inactive Ambien 10 mg Tab RxNorm: 806898 1 Tablet(s) PO QHS 05/24/2010 010 Inactive alprazolam 0.5 mg Tab RxNorm: 982263 1 Tablet(s) PO BID 05/24/2010 Inactive Klor-Con 8 mEq Tab RxNorm: 170883 1 Tablet(s) PO QD 05/24/20102009 Inactive alprazolam 0.5 mg Tab RxNorm: 545200 2 Tablet(s) PO QD prn 05/24/2007/17/2010 Inactive triamterene-hydrochlorothiazide 75 mg-50 mg Tab RxNorm: 3108 18 1 Tablet(s) PO QD 05/24/2010 11/19/2010 Inactive Ambien 10 mg Tab RxNorm: 659906 1 Tablet(s) PO QHS 05/23/2010 010 Inactive Alprazolam 0.5 mg Tab RxNorm: 750976 2 Tablet(s) PO QD prn 05/23/2005/23/2010 Inactive Premarin 1.25 mg Tab RxNorm: 817475 2 Tablet(s) PO QD 05/19/201007/12 Inactive Hydrocodone-Acetaminophen 7.5 mg-650 mg Tab RxNorm: 998552 1 Ta blet(s) PO Q4H 05/19/2010 03/20/2011 Inactive Prednisone 20 mg Tab RxNorm: 293204 1 Tablet(s) PO BID 05/17/2010 Inactive Prednisone 20 mg Tab RxNorm: 191486 1 Tablet(s) PO BID 05/06/201001/2010 Inactive Premarin 1.25 mg Tab RxNorm: 818260 Tablet(s) PO 2 [facility]F, [facility] 08/02/2010 Inactive Premarin 1.25 mg Tab RxNorm: 322301 Tablet(s) PO 2 M-W-F, and [facility] 05/04/2010 05/04/2010 Inactive Premarin 1.25 mg Tab RxNorm: 731597 Tablet(s) PO 2 M-W-F, and [facility] 05/04/2010 05/03/2010 Inactive Prednisone 20 mg Tab RxNorm: 211712 1 Tablet(s) PO BID 04/27/2010 Inactive Alprazolam 0.5 mg Tab RxNorm: 737311 2 Tablet(s) PO QD prn 04/26/20 10 05/22/2010 Inactive Clindamycin 300 mg Cap RxNorm: 266698 2 Capsule(s) PO TID 04/05/2010 04/18/2010 Inactive Terbinafine 250 mg Tab RxNorm: 265778 1 Tablet(s) PO QD 04/04/2010 Inactive Hydrocodone-Acetaminophen 7.5 mg-650 mg Tab RxNorm: 296027 1 Ta blet(s) PO Q4H 03/30/2010 04/18/2010 Inactive Avelox 400 mg Tab RxNorm: 633346 1 Tablet(s) PO QD 03/09/2010 010 Inactive Hydrocodone-Acetaminophen 7.5 mg-650 mg Tab RxNorm: 836016 1 Ta blet(s) PO Q4H 03/08/2010 03/27/2010 Inactive Alprazolam 0.5 mg Tab RxNorm: 497748 2 Tablet(s) PO QD prn 03/08/20 10 04/25/2010 Inactive Klor-Con 8 mEq Tab RxNorm: 334941 1 Tablet(s) PO QD when takes lasi x 03/07/2010 08/03/2010 Inactive Premarin 1.25 mg Tab RxNorm: 348190 1 Tablet(s) PO QD 03/03/201003/11 Inactive Alprazolam 0.5 mg Tab RxNorm: 381146 1 Tablet(s) PO BID PRN 010 No Stop Date Active triamterene-hydrochlorothiazide 75 mg-50 mg Tab RxNorm: 3108 18 1 Tablet(s) PO QD 02/09/2010 02/03/2011 Inactive Hydrocodone-Acetaminophen 10 mg-750 mg Tab RxNorm: 960003 1 Tablet(s) PO Q4H PRN 02/09/2010 03/20/2011 Inactive Clonidine 0.2 mg Tab RxNorm: 075313 1 Tablet(s) PO TID 01/13/201009/2009 Inactive Alprazolam 0.5 mg Tab RxNorm: 040254 1 Tablet(s) PO BID PRN 010 01/12/2010 Inactive Hydrocodone-Acetaminophen 10 mg-750 mg Tab RxNorm: 616023 1 Tablet(s) PO Q4H PRN 01/13/2010 01/12/2010 Inactive ANGELIQ 1 mg-0.5 mg Tab RxNorm: 9674926 1 Tablet(s) PO QD 12/27/2009 01/23/2010 Inactive Lasix 40 mg Tab RxNorm: 069678 1 Tablet(s) PO QAM 12/14/2009 06/11/20 10 Inactive Vitamin B12 1000mcg Tablet RxNorm: 1 Tablet(s) PO QD No Start Date Active cyclobenzaprine 10 mg tablet RxNorm: 607277 1 Tablet(s) PO TID as needed DO NOT USE WITH BACLOFEN No Start Date Active Vitamin D 5,000 unit Tab RxNorm: 1 Tablet(s) PO QD No Start Date Active vitamin E (dl, acetate) 400 unit Cap RxNorm: 428200 1 Capsule(s ) PO QD No Start Date Active Benadryl 25 mg Cap RxNorm: 0554997 Capsule(s) PO PRN No Start Date Inactive amitriptyline 100 mg tablet RxNorm: 694436 1 Tablet(s) PO QHS No St art Date 11/27/2016 Inactive Zithromax Z-Dustin 250 mg tablet RxNorm: 841579 Tablet(s) PO as di rected No Start Date 07/22/2013 Inactive Klor-Con 8 mEq tablet,extended release RxNorm: 874720 1 Tablet( s) PO BID No Start Date 07/28/2012 Inactive scopolamine 1.5 mg 72 hr Transderm Patch RxNorm: 039998 Application TD Q72H for motion sickness No Start Date 05/25/2013 Inactive Klonopin 1 mg tablet RxNorm: 214544 1-2 Tablet(s) PO QHS as nee ded for sleep No Start Date 06/20/2015 Inactive Klor-Con M20 mEq tablet,extended release RxNorm: 629974 2 Tablet(s) PO BID to use with lasix No Start Date 11/11/2013 Inactive Bystolic 5 mg tablet RxNorm: 627276 1 Tablet(s) PO QD No Start Date 1 Inactive Bystolic 10 mg tablet RxNorm: 624071 1 Tablet(s) PO BID No Start Da te 07/06/2015 Inactive Premarin 1.25 mg Tab RxNorm: 164208 Tablet(s) PO 2 -W-, and 1 Nc-Lr-Pcd-Sun No Start Date 05/03/2010 Inactive baclofen 20 mg tablet RxNorm: 780306 1 Tablet(s) PO TID as needed for muscle spasm No Start Date 07/22/2015 Inactive hydrocodone-acetaminophen 7.5 mg-650 mg Tab RxNorm: 563492 1 Tablet(s) PO Q4H as needed for pain No Start Date 03/20/2011 Inactive albuterol sulfate 1.25 mg/3 mL Neb Solution RxNorm: 253608 1 Unit Dose INH Q4H 2boxes No Start Date 09/06/2015 Inactive Butrans 20 mcg/hour Transderm Patch RxNorm: 582443 1 TD WEEKLY apply to skin weekly after removing previous. No Start Date 07/22/2013 Inactive Medrol (Dustin) 4 mg tablets in a dose pack RxNorm: 258760 Tablet(s) PO As Directed No Start Date 07/30/2016 Inactive hydrocodone-acetaminophen 10 mg-325 mg Tab RxNorm: 6195276 1-2 Tablet(s) PO TID as needed for pain No Start Date 03/19/2011 Inactive Klonopin 1 mg tablet RxNorm: 874969 1 Tablet(s) PO QHS No Start Date 02/28/2016 Inactive honey topical RxNorm: topical No Start Date 06/16/2018 Inactive Clonidine 0.2 mg Tab RxNorm: 673867 1 Tablet(s) PO TID No Start Date 01/12/2010 Inactive ketorolac 10 mg tablet RxNorm: 024396 1 Tablet(s) PO Q8H No Start D ate 03/18/2012 Inactive as needed for headache Singulair 10 mg Tab RxNorm: 037999 1 Tablet(s) PO QD No Start Date Inactive Premarin 1.25 mg Tab RxNorm: 734578 1 Tablet(s) PO QD No Start Date 1 Inactive Flonase 50 mcg/Actuation Nasal [place] RxNorm: 1184771 1 [place] CECELIA AL BID No Start Date 03/18/2012 Inactive Terbinafine 250 mg Tab RxNorm: 815232 1 Tablet(s) PO QD No Start Da te 04/03/2010 Inactive Fexofenadine 180 mg Tab RxNorm: 5452395 1 Tablet(s) PO QD No Start Date 09/06/2015 Inactive baclofen 20 mg tablet RxNorm: 551351 1 Tablet(s) PO TID as needed N o Start Date 05/25/2014 Inactive Diovan 160 mg Tab RxNorm: 591695 1 Tablet(s) PO QD No Start Date 09/12 Inactive mupirocin 2 % topical ointment RxNorm: 974648 1 Application TOP QID No Start Date 04/25/2016 Inactive ZOFRAN ODT 4 mg Tab, Rapid Dissolve RxNorm: 090071 1 Tablet(s) PO Q4H No Start Date 03/18/2012 Inactive as needed for nausea and vomiting Alprazolam 0.5 mg Tab RxNorm: 383931 1 Tablet(s) PO BID PRN No Star t Date 01/12/2010 Inactive cyclobenzaprine 10 mg tablet RxNorm: 965218 1 Tablet(s) PO TID as needed for muscle spasm No Start Date 10/08/2017 Inactive Albuterol 0.083% Aerosol Solution RxNorm: 1 Appl ication INH Q4H Use one ampule every 4 hrs with nebulizer as needed for shortness of breath. No Start Date 10/09/2010 Inactive lorazepam 1 mg tablet RxNorm: 814093 1 1/2 Tablet(s) PO QHS No Star t Date 02/02/2016 Inactive Melatonin 3 mg Tab RxNorm: 935477 Tablet(s) PO PRN No Start Date 07/11 Inactive Medrol (Dustin) 4 mg Tabs in a Dose Pack RxNorm: 168298 Tablet(s) PO N o Start Date 11/28/2010 Inactive lorazepam 1 mg tablet RxNorm: 215247 1 Tablet(s) PO QHS as need ed for sleep No Start Date 01/30/2016 Inactive hydrocodone-acetaminophen 10 mg-325 mg Tab RxNorm: 1945151 1-2 Tablet(s) PO QID as needed for severe pain No Start Date 03/24/2012 Inactive celecoxib 200 mg capsule RxNorm: 743781 1 Capsule(s) PO BID No Star t Date 06/26/2019 Inactive amlodipine 5 mg-benazepril 20 mg capsule RxNorm: 831012 1 Capsu le(s) PO QD No Start Date 04/10/2017 Inactive Bystolic 20 mg tablet RxNorm: 625010 1/2 Tablet(s) PO QAM No Start Date 01/23/2016 Inactive Bystolic 20 mg tablet RxNorm: 259879 1 Tablet(s) PO QAM No Start Da te 04/25/2016 Inactive Ambien 10 mg Tab RxNorm: 740230 1 Tablet(s) PO QHS No Start Date 05/11 Inactive Klor-Con 8 mEq Tab RxNorm: 253166 1 Tablet(s) PO QD when takes lasix No Start Date 03/06/2010 Inactive aspirin 81 mg tablet RxNorm: 121860 1 Tablet(s) PO QD No Start Date 0 01/29/2018 Inactive hydrocodone-acetaminophen 10 mg-325 mg Tab RxNorm: 5009767 1-2 T ablet(s) PO QID No Start Date 01/10/2012 Inactive Bystolic 10 mg tablet RxNorm: 221786 1 Tablet(s) PO QAM take one daily in the morning. No Start Date 05/28/2013 Inactive nystatin 100,000 unit/mL Oral Susp RxNorm: 474721 5 Milliliter( s) PO QID No Start Date 03/18/2012 Inactive swish and spit scopolamine 1.5 mg 72 hr Transderm Patch RxNorm: 264662 1 Unit Dose TD Q72H for motion sickness No Start Date 12/23/2013 Inactive Hydrocodone-Acetaminophen 10 mg-750 mg Tab RxNorm: 454950 1 Tablet(s) PO Q4H PRN No Start Date 01/12/2010 Inactive Soma 350 mg tablet RxNorm: 291842 1 Tablet(s) PO TID as needed for spasm No Start Date 01/12/2013 Inactive baclofen 10 mg tablet RxNorm: 126369 1 Tablet(s) PO TID as needed for muscle spasm No Start Date 09/18/2019 Inactive Soma 350 mg Tab RxNorm: 504460 1 Tablet(s) PO TID for spasm No Star t Date 01/31/2012 Inactive Co Q-10 400 mg capsule RxNorm: 870778 1 Capsule(s) PO QD No Start D ate 01/21/2019 Inactive nystatin 100,000 unit/gram topical cream RxNorm: 174687 Applica tion TOP BID No Start Date 03/22/2015 Inactive Exforge 5 mg-160 mg Tab RxNorm: 190643 1 Tablet(s) PO QD No Start D ate 10/09/2010 Inactive Hydrocodone-Acetaminophen 7.5 mg-650 mg Tab RxNorm: 901197 1 Ta blet(s) PO Q4H No Start Date 03/07/2010 Inactive Robaxin-750 750 mg Tab RxNorm: 031491 1-2 Tablet(s) PO TID prn spasm No Start Date 05/21/2011 Inactive amlodipine 5 mg tablet RxNorm: 263345 1 Tablet(s) PO QHS No Start D ate 09/29/2015 Inactive oxycodone-acetaminophen 10 mg-325 mg tablet RxNorm: 8430644 1-2 Tablet(s) PO Q6H No Start Date 06/16/2018 Inactive Triamterene-Hydrochlorothiazide 75 mg-50 mg Tab RxNorm: 3108 18 1 Tablet(s) PO QD No Start Date 02/08/2010 Inactive Alprazolam 0.5 mg Tab RxNorm: 613298 2 Tablet(s) PO QD prn No Start Date 03/07/2010 Inactive Bystolic 20 mg tablet RxNorm: 961427 1 Tablet(s) PO QAM No Start Da te 08/17/2015 Inactive ketorolac 10 mg tablet RxNorm: 091358 1 Tablet(s) PO QID prn he adache No Start Date 07/17/2012 Inactive acyclovir 800 mg Tab RxNorm: 788929 1 Tablet(s) PO BID No Start Date 03/18/2012 Inactive duloxetine 60 mg capsule,delayed release RxNorm: 137791 1 Capsu le(s) PO QD No Start Date 09/29/2015 Inactive Norvasc 5 mg tablet RxNorm: 011272 1 Tablet(s) PO QHS No Start Date 1 10/18/2014 Inactive promethazine 25 mg tablet RxNorm: 444707 1 Tablet(s) PO Q8H use sparingly No Start Date 07/22/2013 Inactive alprazolam 0.5 mg tablet RxNorm: 419676 3 Tablet(s) PO QHS No Start Date 06/06/2015 Inactive Lunesta 3 mg tablet RxNorm: 414910 1 Tablet(s) PO QHS No Start Date 0 09/20/2017 Inactive hydrocodone-acetaminophen 10 mg-325 mg Tab RxNorm: 8989409 1-2 Tablet(s) PO TID as needed for pain No Start Date 12/10/2011 Inactive Coricidin HBP Cough & Cold 4 mg-30 mg Tab RxNorm: 6977958 Tablet (s) PO PRN No Start Date 10/09/2010 Inactive Bactroban 2 % Ointment RxNorm: 872472 Application TOP QID to so res No Start Date 02/22/2012 Inactive Flonase 50 mcg/actuation Nasal [place] RxNorm: 144872 2 [place] QHS No Start Date 03/03/2014 Inactive Medication Administered No Medication Administered data Immunizations Vaccine Codes Date Status Tetanus, Diptheria, Pertussis CVX: 115 02/27/2014 Results Observation Observation Code Item Item Code Result Date S [facility] Location COMPLETE BLOOD COUNT [id number] WBC 10.7 10e9/L 018 Unknown COMPLETE BLOOD COUNT [id number] RBC 4.59 10e12/L 2017 Unknown COMPLETE BLOOD COUNT [id number] HEMOGLOBIN 14.8 g/dL 12/11/19 18 Unknown COMPLETE BLOOD COUNT 2979516 HEMATOCRIT 44.9 % 12/11/19 18 Unknown COMPLETE BLOOD COUNT 8206127 MCV 97.8 fL 8 Unknown COMPLETE BLOOD COUNT 0455381 MCH 32.2 pg 8 Unknown COMPLETE BLOOD COUNT 1892080 MCHC 33.0 g/dL 8 Unknown COMPLETE BLOOD COUNT 1379680 PLATELET COUNT 261 10e9/L 10/2017 Unknown COMPLETE BLOOD COUNT [id number] Mean Plt Volume 9.5 fL 10/2017 Unknown COMPLETE BLOOD COUNT 1469026 Neut Auto 59.9 % 8 Unknown COMPLETE BLOOD COUNT [id number] Lymph Auto 27.4 % 12/11/19 18 Unknown COMPLETE BLOOD COUNT 6275644 [place] Auto 8.2 % 8 Unknown COMPLETE BLOOD COUNT 7865429 RDW 13.3 % 8 Unknown COMPLETE BLOOD COUNT 9690680 Eos Auto 4.1 % 8 Unknown COMPLETE BLOOD COUNT 2992025 Baso Auto 0.4 % 8 Unknown COMPLETE BLOOD COUNT [id number] Neutrophil Abs 6.41 10e9/L Unknown COMPLETE BLOOD COUNT 4546802 Lymphocyte Abs 2.93 10e9/L Unknown COMPLETE BLOOD COUNT 6885892 Monocyte Abs 0.88 10e9/L 10/2017 Unknown COMPLETE BLOOD COUNT 9510816 Eosinophil Abs 0.44 10e9/L Unknown COMPLETE BLOOD COUNT 2351757 RDW-SD 46.2 fL 8 Unknown COMPLETE BLOOD COUNT 3748934 Basophil Abs 0.04 10e9/L 10/2017 Unknown THYROID STIMULATING HORMONE 50635 TSH 4.015 uIU/mL 12/10/2017 Unknown COMPREHENSIVE METABOLIC 23087 AST 25 U/L 2017 Unknown COMPREHENSIVE METABOLIC 44991 ALT 17 U/L 2017 Unknown COMPREHENSIVE METABOLIC 70198 BUN 19 mg/dL 2017 Unknown COMPREHENSIVE METABOLIC 00223 ALBUMIN 4.0 g/dL 2017 Unknown COMPREHENSIVE METABOLIC 96119 CHLORIDE 91 mmol/L 2017 Unknown COMPREHENSIVE METABOLIC 55930 Bili Total 0.5 mg/dL 12/10 Unknown COMPREHENSIVE METABOLIC 10758 ALK PHOS 75 U/L 2017 Unknown COMPREHENSIVE METABOLIC 83366 SODIUM 136 mmol/L 12/10 Unknown COMPREHENSIVE METABOLIC 83764 CREATININE 1.05 mg/dL 10/2017 Unknown COMPREHENSIVE METABOLIC 11458 CALCIUM 8.9 mg/dL 2017 Unknown COMPREHENSIVE METABOLIC 99106 POTASSIUM 3.4 mmol/L 12/10 Unknown COMPREHENSIVE METABOLIC 78449 Total Protein 6.5 g/dL Unknown COMPREHENSIVE METABOLIC 75391 Glucose 138 mg/dL 2017 Unknown COMPREHENSIVE METABOLIC 47703 Bicarbonate 35 mmol/L 10/2017 Unknown COMPREHENSIVE METABOLIC 66642 AGAP 10 mmol/L 2017 Unknown MEAN GLUC 9147362 Calc Mean Gluc 171 mg/dL 12/10/2017 Unkn own LIPID GROUP 49769 Cholesterol 204 mg/dL 12/10/2017 Unkno wn LIPID GROUP 14765 Triglyceride 411 mg/dL 12/10/2017 Unkn own LIPID GROUP 15956 HDL CHOLESTEROL 50 mg/dL 12/10/2017 U nknown LIPID GROUP 34936 Chol/HDL Ratio 4.08 ratio 12/10/2017 U nknown LIPID GROUP 65034 NON-HDL Chol 154 mg/dL 12/10/2017 Unkn own LIPID GROUP 97443 LDL Cholesterol N/A Trig >400 018 Unknown GLYCOSYLATED HEMOGLOBIN TEST 76147 Hgb A1c 41310-6 7.6 % 0 12/10/2017 Unknown FREE T4 25188 T4 Free 1.40 ng/dL 12/10/2017 Unknown GFR CALC 6440870 GFR Non Afr Amr 55 mL/min 12/10/2017 Unk nown GFR CALC 5787584 GFR Afr Amr >60 mL/min 12/10/2017 Unknow n GFR CALC 4464794 GFR Non Afr Amr 48 mL/min 06/28/2017 Unk nown GFR CALC 0613524 GFR Afr Amr 59 mL/min 06/28/2017 Unknown COMPREHENSIVE METABOLIC 13327 AST 32 U/L 2016 Unknown COMPREHENSIVE METABOLIC 69252 ALT 22 U/L 2016 Unknown COMPREHENSIVE METABOLIC 92830 BUN 23 mg/dL 2016 Unknown COMPREHENSIVE METABOLIC 77250 ALBUMIN 4.7 g/dL 2016 Unknown COMPREHENSIVE METABOLIC 07510 CHLORIDE 89 mmol/L 2016 Unknown COMPREHENSIVE METABOLIC 33620 Bili Total 0.5 mg/dL 06/28 Unknown COMPREHENSIVE METABOLIC 38359 ALK PHOS 90 U/L 2016 Unknown COMPREHENSIVE METABOLIC 08971 SODIUM 135 mmol/L 06/28 Unknown COMPREHENSIVE METABOLIC 59900 CREATININE 1.18 mg/dL 06/10 Unknown COMPREHENSIVE METABOLIC 86773 CALCIUM 9.7 mg/dL 2016 Unknown COMPREHENSIVE METABOLIC 10793 POTASSIUM 3.5 mmol/L 06/28 Unknown COMPREHENSIVE METABOLIC 93139 Total Protein 7.7 g/dL Unknown COMPREHENSIVE METABOLIC 18355 Glucose 129 mg/dL 2016 Unknown COMPREHENSIVE METABOLIC 85912 Bicarbonate 34 mmol/L 06/10 Unknown COMPREHENSIVE METABOLIC 49534 AGAP 12 mmol/L 2016 Unknown LIPID GROUP 79875 HDL TEST 64 MG/DL 08/27/2014 Unknown LIPID GROUP 86598 TRIG 222 MG/DL 08/27/2014 Unknown LIPID GROUP 03626 TEST LDL 209 MG/DL 08/27/2014 Unknown LIPID GROUP 06709 CHOL 317 MG/DL 08/27/2014 Unknown LIPID GROUP 32754 RCHOL/HDL 4.95 RATIO 08/27/2014 Unknow n LIPID GROUP 21708 NON-HDL CH 253 MG/DL 08/27/2014 Unknow n GFR CALC 5306975 GFR AA >60 ML/MIN 08/27/2014 Unknown GFR CALC 4942226 GFR NON-AA >60 ML/MIN 08/27/2014 Unknown COMPLETE BLOOD COUNT 9980898 WBC 7.0 10e9/L 08/27/20 14 Unknown COMPLETE BLOOD COUNT 8014838 RBC 4.98 10e12/L 2013 Unknown COMPLETE BLOOD COUNT 6815338 HGB 15.6 g/dL 4 Unknown COMPLETE BLOOD COUNT 2452879 HCT DET 46.5 % 4 Unknown COMPLETE BLOOD COUNT 3635526 MCV 93.4 fL 4 Unknown COMPLETE BLOOD COUNT 2097174 MCH 31.3 pg 4 Unknown COMPLETE BLOOD COUNT 7821116 MCHC 33.5 g/dL 4 Unknown COMPLETE BLOOD COUNT 7116326 PLT 309 10e9/L 08/27/20 14 Unknown COMPLETE BLOOD COUNT 3222262 MPV 9.6 fL 4 Unknown COMPLETE BLOOD COUNT 0663101 CADEN % 57.2 % 4 Unknown COMPLETE BLOOD COUNT 9810099 LY % 33.2 % 4 Unknown COMPLETE BLOOD COUNT 0122651 MON % 7.3 % 4 Unknown COMPLETE BLOOD COUNT 9587000 EOS % 2.0 % 4 Unknown COMPLETE BLOOD COUNT 8236971 BASO % 0.3 % 4 Unknown COMPLETE BLOOD COUNT 0376880 RDW 13.7 % 4 Unknown COMPLETE BLOOD COUNT 0617489 ABS CADEN 4.00 10e9/L 014 Unknown COMPLETE BLOOD COUNT 9182017 ABS LYMPH 2.32 10e9/L 014 Unknown COMPLETE BLOOD COUNT 6695642 ABS MONO 0.51 10e9/L 014 Unknown COMPLETE BLOOD COUNT 7024020 ABS EOS 0.14 10e9/L 014 Unknown COMPLETE BLOOD COUNT 1058378 ABS BASO 0.02 10e9/L 014 Unknown COMPLETE BLOOD COUNT 3840288 RDW-SD 45.1 fL 4 Unknown COMPREHENSIVE METABOLIC 04912 AST 13 U/L 2013 Unknown COMPREHENSIVE METABOLIC 66669 ALT 11 IU/L 2013 Unknown COMPREHENSIVE METABOLIC 06694 BUN 23 MG/DL 2013 Unknown COMPREHENSIVE METABOLIC 83458 ALBUMIN 4.4 GM/DL 2013 Unknown COMPREHENSIVE METABOLIC 39712 CHLORIDE 99 MMOL/L 2013 Unknown COMPREHENSIVE METABOLIC 85883 BILI TOT 0.5 MG/DL 2013 Unknown COMPREHENSIVE METABOLIC 09961 ALK PHOS 56 U/L 2013 Unknown COMPREHENSIVE METABOLIC 79671 SODIUM 138 MMOL/L 08/27 Unknown COMPREHENSIVE METABOLIC 29711 CREATININE 0.95 MG/DL 08/10 Unknown COMPREHENSIVE METABOLIC 83615 CALCIUM 9.8 MG/DL 2013 Unknown COMPREHENSIVE METABOLIC 33105 POTASSIUM 3.5 MMOL/L 08/27 Unknown COMPREHENSIVE METABOLIC 37215 PROT TOT 6.8 GM/DL 2013 Unknown COMPREHENSIVE METABOLIC 87302 Glucose 90 MG/DL 2013 Unknown COMPREHENSIVE METABOLIC 62293 BICARB 34 MMOL/L 2013 Unknown COMPREHENSIVE METABOLIC 40149 ANION GAP 5 MEQ/L 2013 Unknown LIPASE 69860 LIPASE 11 IU/L 07/21/2014 Unknown AMYLASE 30100 AMYLASE 39 IU/L 07/21/2014 Unknown HEMOGLOBIN A1C (GLYCOSYLATED) 1089245 A1C HPLC 85349-3 6.2 % 03/05/2013 Unknown THYROID STIMULATING HORMONE 56645 TSH 6.986 uIU/ML 03/05/2013 Unknown COMPLETE BLOOD COUNT 1512544 WBC 12.7 10e9/L 013 Unknown COMPLETE BLOOD COUNT 2129583 RBC 4.53 10e12/L 2012 Unknown COMPLETE BLOOD COUNT 1821092 HGB 14.7 g/dL 3 Unknown COMPLETE BLOOD COUNT 2772831 HCT DET 43.1 % 3 Unknown COMPLETE BLOOD COUNT 0075542 MCV 95.1 fL 3 Unknown COMPLETE BLOOD COUNT 3648898 MCH 32.5 pg 3 Unknown COMPLETE BLOOD COUNT 5933825 MCHC 34.1 g/dL 3 Unknown COMPLETE BLOOD COUNT 1194774 PLT 346 10e9/L 03/05/20 13 Unknown COMPLETE BLOOD COUNT 0965248 MPV 9.5 fL 3 Unknown COMPLETE BLOOD COUNT 8195132 CADEN % 67.6 % 3 Unknown COMPLETE BLOOD COUNT 5718522 LY % 22.1 % 3 Unknown COMPLETE BLOOD COUNT 1404587 MON % 6.6 % 3 Unknown COMPLETE BLOOD COUNT 6906738 EOS % 3.3 % 3 Unknown COMPLETE BLOOD COUNT 2653941 BASO % 0.4 % 3 Unknown COMPLETE BLOOD COUNT 7649981 RDW 14.0 % 3 Unknown COMPLETE BLOOD COUNT 6476876 ABS CADEN 8.59 10e9/L 013 Unknown COMPLETE BLOOD COUNT 3090132 ABS LYMPH 2.81 10e9/L 013 Unknown COMPLETE BLOOD COUNT 8014949 ABS MONO 0.84 10e9/L 013 Unknown COMPLETE BLOOD COUNT 7645170 ABS EOS 0.42 10e9/L 013 Unknown COMPLETE BLOOD COUNT 1432395 ABS BASO 0.05 10e9/L 013 Unknown COMPLETE BLOOD COUNT 1157667 RDW-SD 46.0 fL 3 Unknown FREE T4 29806 FREE T4 1.14 NG/DL 03/05/2013 Unknown COMPREHENSIVE METABOLIC 08950 AST 17 U/L 2012 Unknown COMPREHENSIVE METABOLIC 70220 ALT 12 IU/L 2012 Unknown COMPREHENSIVE METABOLIC 59819 BUN 24 MG/DL 2012 Unknown COMPREHENSIVE METABOLIC 45428 ALBUMIN 4.2 GM/DL 2012 Unknown COMPREHENSIVE METABOLIC 85066 CHLORIDE 93 MMOL/L 2012 Unknown COMPREHENSIVE METABOLIC 38672 BILI TOT 0.5 MG/DL 2012 Unknown COMPREHENSIVE METABOLIC 48960 ALK PHOS 75 U/L 2012 Unknown COMPREHENSIVE METABOLIC 65601 SODIUM 141 MMOL/L 03/05 Unknown COMPREHENSIVE METABOLIC 64891 CREATININE 1.36 MG/DL 02/09 Unknown COMPREHENSIVE METABOLIC 94967 CALCIUM 9.2 MG/DL 2012 Unknown COMPREHENSIVE METABOLIC 67843 POTASSIUM 3.1 MMOL/L 03/05 Unknown COMPREHENSIVE METABOLIC 07088 PROT TOT 6.9 GM/DL 2012 Unknown COMPREHENSIVE METABOLIC 89081 Glucose 123 MG/DL 2012 Unknown COMPREHENSIVE METABOLIC 61115 BICARB 36 MMOL/L 2012 Unknown COMPREHENSIVE METABOLIC 14864 ANION GAP 12 MEQ/L 2012 Unknown GFR CALC 8619635 GFR AA 51.0L ML/MIN 03/05/2013 Unknow n GFR CALC 6751554 GFR NON-AA 42.0L ML/MIN 03/05/2013 Unkno wn COMPREHENSIVE METABOLIC 02396 AST 14 U/L 2012 Unknown COMPREHENSIVE METABOLIC 66484 ALT 11 IU/L 2012 Unknown COMPREHENSIVE METABOLIC 94046 BUN 16 MG/DL 2012 Unknown COMPREHENSIVE METABOLIC 84452 ALBUMIN 4.2 GM/DL 2012 Unknown COMPREHENSIVE METABOLIC 84493 CHLORIDE 98 MMOL/L 2012 Unknown COMPREHENSIVE METABOLIC 41369 BILI TOT 0.4 MG/DL 2012 Unknown COMPREHENSIVE METABOLIC 64771 ALK PHOS 77 U/L 2012 Unknown COMPREHENSIVE METABOLIC 16944 SODIUM 139 MMOL/L 09/25 Unknown COMPREHENSIVE METABOLIC 01718 CREATININE 0.86 MG/DL 09/10 Unknown COMPREHENSIVE METABOLIC 08227 CALCIUM 9.5 MG/DL 2012 Unknown COMPREHENSIVE METABOLIC 91637 POTASSIUM 3.8 MMOL/L 09/25 Unknown COMPREHENSIVE METABOLIC 74806 PROT TOT 6.8 GM/DL 2012 Unknown COMPREHENSIVE METABOLIC 89157 Glucose 91 MG/DL 2012 Unknown COMPREHENSIVE METABOLIC 44611 BICARB 32 MMOL/L 2012 Unknown COMPREHENSIVE METABOLIC 25809 ANION GAP 9 MEQ/L 2012 Unknown FREE T4 10114 FREE T4 0.98 NG/DL 09/25/2012 Unknown THYROID STIMULATING HORMONE 50623 TSH 1.736 uIU/ML 09/25/2012 Unknown C-REACTIVE PROTEIN (CRP) QUANT 66153 CRP 2.3 MG/DL 09/25/2012 Unknown COMPLETE BLOOD COUNT 2329443 WBC 11.9 10e9/L 013 Unknown COMPLETE BLOOD COUNT 3179508 RBC 4.87 10e12/L 2012 Unknown COMPLETE BLOOD COUNT 1702898 HGB 15.1 g/dL 3 Unknown COMPLETE BLOOD COUNT 7310402 HCT DET 44.8 % 3 Unknown COMPLETE BLOOD COUNT 6942173 MCV 92.0 fL 3 Unknown COMPLETE BLOOD COUNT 5833572 MCH 31.0 pg 3 Unknown COMPLETE BLOOD COUNT 8282309 MCHC 33.7 g/dL 3 Unknown COMPLETE BLOOD COUNT 9117865 PLT 343 10e9/L 09/25/19 13 Unknown COMPLETE BLOOD COUNT 4640202 MPV 9.0 fL 3 Unknown COMPLETE BLOOD COUNT 5237926 CADEN % 68.2 % 3 Unknown COMPLETE BLOOD COUNT 9635257 LY % 22.4 % 3 Unknown COMPLETE BLOOD COUNT 1047113 MON % 6.4 % 3 Unknown COMPLETE BLOOD COUNT 0318563 EOS % 2.7 % 3 Unknown COMPLETE BLOOD COUNT 4918946 BASO % 0.3 % 3 Unknown COMPLETE BLOOD COUNT 9696379 RDW 13.8 % 3 Unknown COMPLETE BLOOD COUNT 2543449 ABS CADEN 8.12 10e9/L 013 Unknown COMPLETE BLOOD COUNT 2358305 ABS LYMPH 2.67 10e9/L 013 Unknown COMPLETE BLOOD COUNT 3764875 ABS MONO 0.76 10e9/L 013 Unknown COMPLETE BLOOD COUNT 3715061 ABS EOS 0.32 10e9/L 013 Unknown COMPLETE BLOOD COUNT [id number] ABS BASO 0.04 10e9/L 013 Unknown COMPLETE BLOOD COUNT 4475983 RDW-SD 45.6 fL 3 Unknown GFR CALC 0626751 GFR AA >60 ML/MIN 09/25/2012 Unknown GFR CALC 2280680 GFR NON-AA >60 ML/MIN 09/25/2012 Unknown ERYTHROCYTE SEDIMENTATION RATE 06664 ESR 19 MM/HR 05/06/2012 Unknown VITAMIN B 12 FOLIC ACID 23155|06364 VIT B 12 922 PG/ML 04/11 Unknown VITAMIN B 12 FOLIC ACID 54267|64829 FOLIC ACID 13.6 NG/ML Unknown URIC ACID 99187 URIC ACID 7.8 MG/DL 05/06/2012 Unknown COMPLETE BLOOD COUNT 52319 WBC 11.9 10e9/L 012 Unknown COMPLETE BLOOD COUNT 29710 RBC 5.30 10e12/L 2011 Unknown COMPLETE BLOOD COUNT 10653 HGB 16.6 g/dL 2 Unknown COMPLETE BLOOD COUNT 46830 HCT DET 47.2 % 2 Unknown COMPLETE BLOOD COUNT 91624 MCV 89.1 fL 2 Unknown COMPLETE BLOOD COUNT 41253 MCH 31.3 pg 2 Unknown COMPLETE BLOOD COUNT 83381 MCHC 35.2 g/dL 2 Unknown COMPLETE BLOOD COUNT 27354 PLT 362 10e9/L 05/06/20 12 Unknown COMPLETE BLOOD COUNT 88949 MPV 9.4 fL 2 Unknown COMPLETE BLOOD COUNT 57588 CADEN % 68.2 % 2 Unknown COMPLETE BLOOD COUNT 36532 LY % 22.0 % 2 Unknown COMPLETE BLOOD COUNT 29522 MON % 6.9 % 2 Unknown COMPLETE BLOOD COUNT 80657 EOS % 2.6 % 2 Unknown COMPLETE BLOOD COUNT 96114 BASO % 0.3 % 2 Unknown COMPLETE BLOOD COUNT 17855 RDW 12.8 % 2 Unknown COMPLETE BLOOD COUNT 99626 ABS CADEN 8.12 10e9/L 012 Unknown COMPLETE BLOOD COUNT 86048 ABS LYMPH 2.62 10e9/L 012 Unknown COMPLETE BLOOD COUNT 83095 ABS MONO 0.82 10e9/L 012 Unknown COMPLETE BLOOD COUNT 02248 ABS EOS 0.31 10e9/L 012 Unknown COMPLETE BLOOD COUNT 66610 ABS BASO 0.04 10e9/L 012 Unknown COMPLETE BLOOD COUNT 30091 RDW-SD 41.5 fL 2 Unknown GFR CALC 1544601 GFR AA >60 ML/MIN 05/06/2012 Unknown GFR CALC 6301706 GFR NON-AA 58.0L ML/MIN 05/06/2012 Unkno wn FREE T4 48750 FREE T4 1.15 NG/DL 05/06/2012 Unknown THYROID STIMULATING HORMONE 61762 TSH 1.568 uIU/ML 05/06/2012 Unknown COMPREHENSIVE METABOLIC 84586 AST 20 U/L 2011 Unknown COMPREHENSIVE METABOLIC 74762 ALT 12 IU/L 2011 Unknown COMPREHENSIVE METABOLIC 65725 BUN 20 MG/DL 2011 Unknown COMPREHENSIVE METABOLIC 85035 ALBUMIN 4.5 GM/DL 2011 Unknown COMPREHENSIVE METABOLIC 30668 CHLORIDE 91 MMOL/L 2011 Unknown COMPREHENSIVE METABOLIC 77765 BILI TOT 0.4 MG/DL 2011 Unknown COMPREHENSIVE METABOLIC 81633 ALK PHOS 73 U/L 2011 Unknown COMPREHENSIVE METABOLIC 13585 SODIUM 139 MMOL/L 05/06 Unknown COMPREHENSIVE METABOLIC 89997 CREATININE 1.02 MG/DL 04/11 Unknown COMPREHENSIVE METABOLIC 13114 CALCIUM 9.7 MG/DL 2011 Unknown COMPREHENSIVE METABOLIC 94849 POTASSIUM 3.1 MMOL/L 05/06 Unknown COMPREHENSIVE METABOLIC 02265 PROT TOT 7.3 GM/DL 2011 Unknown COMPREHENSIVE METABOLIC 46281 Glucose 118 MG/DL 2011 Unknown COMPREHENSIVE METABOLIC 08234 BICARB 33 MMOL/L 2011 Unknown COMPREHENSIVE METABOLIC 29467 ANION GAP 15 MEQ/L 2011 Unknown Procedures Procedure Codes Date URINALYSIS NONAUTO W/O SCOPE CPT-4: 85970 09/30/2018 MICROALBUMIN QUANTITATIVE CPT-4: 06729 09/30/2018 CEFTRIAXONE SODIUM INJECTION CPT-4: J0696 06/19/2018 THER/PROPH/DIAG INJ SC/IM CPT-4: 19199 06/19/2018 CEFTRIAXONE SODIUM INJECTION CPT-4: J0696 06/17/2018 THER/PROPH/DIAG INJ SC/IM CPT-4: 08287 06/17/2018 THER/PROPH/DIAG INJ SC/IM CPT-4: 26056 05/16/2018 KETOROLAC TROMETHAMINE INJ CPT-4: J1885 05/16/2018 ONDANSETRON HCL INJECTION CPT-4: J2405 05/16/2018 THER/PROPH/DIAG INJ SC/IM CPT-4: 38100 05/16/2018 ROUTINE VENIPUNCTURE CPT-4: 63890 03/20/2018 COMPREHEN METABOLIC PANEL CPT-4: 75770 03/20/2018 DEXAMETHASONE SODIUM PHOS CPT-4: J1100 02/11/2018 THER/PROPH/DIAG INJ SC/IM CPT-4: 94521 02/11/2018 TRIAMCINOLONE ACET INJ NOS CPT-4: J3301 02/11/2018 CEFTRIAXONE SODIUM INJECTION CPT-4: J0696 02/01/2018 THER/PROPH/DIAG INJ SC/IM CPT-4: 47865 02/01/2018 CEFTRIAXONE SODIUM INJECTION CPT-4: J0696 01/30/2018 THER/PROPH/DIAG INJ SC/IM CPT-4: 12090 01/30/2018 ROUTINE VENIPUNCTURE CPT-4: 38202 12/10/2017 ASSAY OF FREE THYROXINE CPT-4: 50408 12/10/2017 ASSAY THYROID STIM HORMONE CPT-4: 65608 12/10/2017 COMPREHEN METABOLIC PANEL CPT-4: 05935 12/10/2017 COMPLETE CBC W/AUTO DIFF WBC CPT-4: 46487 12/10/2017 LIPID PANEL CPT-4: 19031 12/10/2017 A1C HPLC CPT-4: 10419 12/10/2017 CEFTRIAXONE SODIUM INJECTION CPT-4: J0696 12/10/2017 THER/PROPH/DIAG INJ SC/IM CPT-4: 03032 12/10/2017 CEFTRIAXONE SODIUM INJECTION CPT-4: J0696 12/07/2017 THER/PROPH/DIAG INJ SC/IM CPT-4: 32358 12/07/2017 DEXAMETHASONE SODIUM PHOS CPT-4: J1100 12/07/2017 THER/PROPH/DIAG INJ SC/IM CPT-4: 03298 12/07/2017 CEFTRIAXONE SODIUM INJECTION CPT-4: J0696 10/08/2017 THER/PROPH/DIAG INJ SC/IM CPT-4: 89283 10/08/2017 CEFTRIAXONE SODIUM INJECTION CPT-4: J0696 09/21/2017 THER/PROPH/DIAG INJ SC/IM CPT-4: 27611 09/21/2017 CEFTRIAXONE SODIUM INJECTION CPT-4: J0696 09/20/2017 THER/PROPH/DIAG INJ SC/IM CPT-4: 21843 09/20/2017 REMOVAL OF NAIL PLATE CPT-4: 95113 08/29/2017 THER/PROPH/DIAG INJ SC/IM CPT-4: 18900 08/29/2017 TRIAMCINOLONE ACET INJ NOS CPT-4: J3301 08/29/2017 CEFTRIAXONE SODIUM INJECTION CPT-4: J0696 08/29/2017 THER/PROPH/DIAG INJ SC/IM CPT-4: 15994 08/29/2017 DESTRUCT PREMALG LESION (Cryosurgery) CPT-4: 19976 ROUTINE VENIPUNCTURE CPT-4: 76624 06/27/2017 ASSAY OF FREE THYROXINE CPT-4: 72849 06/27/2017 ASSAY THYROID STIM HORMONE CPT-4: 19453 06/27/2017 COMPREHEN METABOLIC PANEL CPT-4: 57531 06/27/2017 COMPLETE CBC W/AUTO DIFF WBC CPT-4: 79710 06/27/2017 EXC TR-EXT B9+REECE 0.5 CM< CPT-4: 46742 01/24/2017 THER/PROPH/DIAG INJ SC/IM CPT-4: 16513 08/02/2016 DEXAMETHASONE SODIUM PHOS CPT-4: J1100 08/02/2016 DESTRUCT PREMALG LESION (Cryosurgery) CPT-4: 74699 EXC TR-EXT B9+REECE 0.5 CM< CPT-4: 13609 08/01/2016 AEROBIC WOUND CULTURE & STN CPT-4: 86058 07/06/2016 CEFTRIAXONE SODIUM INJECTION CPT-4: J0696 05/25/2016 THER/PROPH/DIAG INJ SC/IM CPT-4: 02144 05/25/2016 THER/PROPH/DIAG INJ SC/IM CPT-4: 24515 04/26/2016 DEXAMETHASONE SODIUM PHOS CPT-4: J1100 04/26/2016 CEFTRIAXONE SODIUM INJECTION CPT-4: J0696 04/26/2016 THER/PROPH/DIAG INJ SC/IM CPT-4: 91577 04/26/2016 THER/PROPH/DIAG INJ SC/IM CPT-4: 67567 02/09/2016 TRIAMCINOLONE ACET INJ NOS CPT-4: J3301 02/09/2016 URINALYSIS NONAUTO W/O SCOPE CPT-4: 15129 01/24/2016 URINE CULTURE/ COLONY COUNT CPT-4: 59322 01/24/2016 THER/PROPH/DIAG INJ SC/IM CPT-4: 56535 12/08/2015 TRIAMCINOLONE ACET INJ NOS CPT-4: J3301 12/08/2015 THER/PROPH/DIAG INJ SC/IM CPT-4: 37327 10/07/2015 TRIAMCINOLONE ACET INJ NOS CPT-4: J3301 10/07/2015 DESTRUCT PREMALG LESION (Cryosurgery) CPT-4: 97791 THER/PROPH/DIAG INJ SC/IM CPT-4: 95260 03/16/2015 METHYLPREDNISOLONE 40 MG INJ CPT-4: J1030 03/16/2015 DESTRUCT PREMALG LESION (Cryosurgery) CPT-4: 36847 THER/PROPH/DIAG INJ SC/IM CPT-4: 84547 09/11/2014 METHYLPREDNISOLONE 40 MG INJ CPT-4: J1030 09/11/2014 TRIAMCINOLONE ACET INJ NOS CPT-4: J3301 09/11/2014 CEFTRIAXONE SODIUM INJECTION CPT-4: J0696 09/11/2014 THER/PROPH/DIAG INJ SC/IM CPT-4: 04694 09/11/2014 ROUTINE VENIPUNCTURE CPT-4: 35909 08/27/2014 COMPREHEN METABOLIC PANEL CPT-4: 76781 08/27/2014 COMPLETE CBC W/AUTO DIFF WBC CPT-4: 85233 08/27/2014 LIPID PANEL CPT-4: 21301 08/27/2014 ROUTINE VENIPUNCTURE CPT-4: 65767 07/21/2014 ASSAY OF AMYLASE CPT-4: 52690 07/21/2014 ASSAY OF LIPASE CPT-4: 10067 07/21/2014 THER/PROPH/DIAG INJ SC/IM CPT-4: 35740 07/15/2014 TRIAMCINOLONE ACET INJ NOS CPT-4: J3301 07/15/2014 ROUTINE VENIPUNCTURE CPT-4: 93954 05/14/2014 ASSAY OF FREE THYROXINE CPT-4: 48850 05/14/2014 ASSAY THYROID STIM HORMONE CPT-4: 30448 05/14/2014 COMPREHEN METABOLIC PANEL CPT-4: 01138 05/14/2014 COMPLETE CBC W/AUTO DIFF WBC CPT-4: 46572 05/14/2014 LIPID PANEL CPT-4: 40698 05/14/2014 CEFTRIAXONE SODIUM INJECTION CPT-4: J0696 04/21/2014 THER/PROPH/DIAG INJ SC/IM CPT-4: 48984 04/21/2014 THER/PROPH/DIAG INJ SC/IM CPT-4: 04971 04/21/2014 TRIAMCINOLONE ACET INJ NOS CPT-4: J3301 04/21/2014 THER/PROPH/DIAG INJ SC/IM CPT-4: 35961 03/04/2014 METHYLPREDNISOLONE 40 MG INJ CPT-4: J1030 03/04/2014 TRIAMCINOLONE ACET INJ NOS CPT-4: J3301 03/04/2014 CEFTRIAXONE SODIUM INJECTION CPT-4: J0696 03/04/2014 THER/PROPH/DIAG INJ SC/IM CPT-4: 04133 03/04/2014 TDAP VACCINE 7 YRS/> IM CPT-4: 35774 02/27/2014 IMMUNIZATION ADMIN CPT-4: 41855 02/27/2014 DESTRUCT PREMALG LESION (Cryosurgery) CPT-4: 64584 DESTRUCT PREMALG LES 2-14 CPT-4: 04039 01/13/2014 THER/PROPH/DIAG INJ SC/IM CPT-4: 29148 10/21/2013 METHYLPREDNISOLONE 40 MG INJ CPT-4: J1030 10/21/2013 TRIAMCINOLONE ACET INJ NOS CPT-4: J3301 10/21/2013 CEFTRIAXONE SODIUM INJECTION CPT-4: J0696 08/27/2013 THER/PROPH/DIAG INJ SC/IM CPT-4: 00450 08/27/2013 THER/PROPH/DIAG INJ SC/IM CPT-4: 00452 08/27/2013 METHYLPREDNISOLONE 40 MG INJ CPT-4: J1030 08/27/2013 TRIAMCINOLONE ACET INJ NOS CPT-4: J3301 08/27/2013 THER/PROPH/DIAG INJ SC/IM CPT-4: 97376 06/23/2013 METHYLPREDNISOLONE 40 MG INJ CPT-4: J1030 06/23/2013 TRIAMCINOLONE ACET INJ NOS CPT-4: J3301 06/23/2013 THER/PROPH/DIAG INJ SC/IM CPT-4: 09272 05/26/2013 METHYLPREDNISOLONE 40 MG INJ CPT-4: J1030 05/26/2013 TRIAMCINOLONE ACET INJ NOS CPT-4: J3301 05/26/2013 ROUTINE VENIPUNCTURE CPT-4: 94079 03/05/2013 ASSAY OF FREE THYROXINE CPT-4: 36331 03/05/2013 ASSAY THYROID STIM HORMONE CPT-4: 98254 03/05/2013 COMPREHEN METABOLIC PANEL CPT-4: 25303 03/05/2013 COMPLETE CBC W/AUTO DIFF WBC CPT-4: 96625 03/05/2013 A1C GLYCOSYLATED HEMOGLOBIN TEST CPT-4: 10216 013 DRAIN/INJECT JOINT/BURSA CPT-4: 93312 12/04/2012 METHYLPREDNISOLONE 40 MG INJ CPT-4: J1030 12/04/2012 TRIAMCINOLONE ACET INJ NOS CPT-4: J3301 12/04/2012 CEFTRIAXONE SODIUM INJECTION CPT-4: J0696 11/21/2012 THER/PROPH/DIAG INJ SC/IM CPT-4: 12015 11/21/2012 THER/PROPH/DIAG INJ SC/IM CPT-4: 21426 10/14/2012 METHYLPREDNISOLONE 40 MG INJ CPT-4: J1030 10/14/2012 TRIAMCINOLONE ACET INJ NOS CPT-4: J3301 10/14/2012 URINALYSIS NONAUTO W/O SCOPE CPT-4: 92491 09/27/2012 ROUTINE VENIPUNCTURE CPT-4: 02396 09/25/2012 ASSAY OF FREE THYROXINE CPT-4: 73707 09/25/2012 ASSAY THYROID STIM HORMONE CPT-4: 32318 09/25/2012 COMPREHEN METABOLIC PANEL CPT-4: 86071 09/25/2012 COMPLETE CBC W/AUTO DIFF WBC CPT-4: 82627 09/25/2012 C-REACTIVE PROTEIN CPT-4: 19886 09/25/2012 THER/PROPH/DIAG INJ SC/IM CPT-4: 09728 08/29/2012 METHYLPREDNISOLONE 40 MG INJ CPT-4: J1030 08/29/2012 TRIAMCINOLONE ACET INJ NOS CPT-4: J3301 08/29/2012 DESTRUCT PREMALG LESION (Cryosurgery) CPT-4: 39985 THER/PROPH/DIAG INJ SC/IM CPT-4: 86069 05/06/2012 METHYLPREDNISOLONE 40 MG INJ CPT-4: J1030 05/06/2012 TRIAMCINOLONE ACET INJ NOS CPT-4: J3301 05/06/2012 VITAMIN B 12 FOLIC ACID CPT-4: 38570|34784 05/06/2012 RBC SED RATE AUTOMATED CPT-4: 02821 05/06/2012 ROUTINE VENIPUNCTURE CPT-4: 88370 05/06/2012 ASSAY OF FREE THYROXINE CPT-4: 05858 05/06/2012 ASSAY THYROID STIM HORMONE CPT-4: 86517 05/06/2012 COMPREHEN METABOLIC PANEL CPT-4: 76654 05/06/2012 COMPLETE CBC W/AUTO DIFF WBC CPT-4: 13530 05/06/2012 ASSAY OF BLOOD/URIC ACID CPT-4: 60641 05/06/2012 THER/PROPH/DIAG INJ SC/IM CPT-4: 44632 03/19/2012 KETOROLAC TROMETHAMINE INJ CPT-4: J1885 03/19/2012 KETOROLAC TROMETHAMINE INJ CPT-4: J1885 01/30/2012 THER/PROPH/DIAG INJ SC/IM CPT-4: 40435 01/30/2012 PROMETHAZINE HCL INJECTION CPT-4: J2550 01/30/2012 THER/PROPH/DIAG INJ SC/IM CPT-4: 08608 01/24/2012 METHYLPREDNISOLONE 40 MG INJ CPT-4: J1030 01/24/2012 TRIAMCINOLONE ACET INJ NOS CPT-4: J3301 01/24/2012 THER/PROPH/DIAG INJ SC/IM CPT-4: 09998 09/13/2011 KETOROLAC TROMETHAMINE INJ CPT-4: J1885 09/13/2011 THER/PROPH/DIAG INJ SC/IM CPT-4: 97553 09/13/2011 PROMETHAZINE HCL INJECTION CPT-4: J2550 09/13/2011 CEFTRIAXONE SODIUM INJECTION CPT-4: J0696 07/20/2011 THER/PROPH/DIAG INJ SC/IM CPT-4: 48746 07/20/2011 THER/PROPH/DIAG INJ SC/IM CPT-4: 05304 07/20/2011 METHYLPREDNISOLONE INJECTION CPT-4: J2930 07/20/2011 URINALYSIS NONAUTO W/O SCOPE CPT-4: 74831 05/09/2011 CEFTRIAXONE SODIUM INJECTION CPT-4: J0696 05/09/2011 THER/PROPH/DIAG INJ SC/IM CPT-4: 28636 05/09/2011 THER/PROPH/DIAG INJ SC/IM CPT-4: 72237 05/09/2011 PROMETHAZINE HCL INJECTION CPT-4: J2550 05/09/2011 HYDRATION IV INFUSION INIT CPT-4: 55213 05/09/2011 DESTRUCT PREMALG LESION (Cryosurgery) CPT-4: 46508 DESTRUCT PREMALG LES 2-14 CPT-4: 48613 07/19/2010 REMOVAL OF SKIN TAGS <W/15 CPT-4: 43418 05/30/2010 THER/PROPH/DIAG INJ SC/IM CPT-4: 35926 04/05/2010 CEFTRIAXONE SODIUM INJECTION CPT-4: J0696 04/05/2010 TRIAMCINOLONE ACET INJ NOS CPT-4: J3301 04/05/2010 METHYLPREDNISOLONE 40 MG INJ CPT-4: J1030 04/05/2010 THER/PROPH/DIAG INJ SC/IM CPT-4: 50367 04/05/2010 TRIAMCINOLONE ACET INJ NOS CPT-4: J3301 03/09/2010 METHYLPREDNISOLONE 40 MG INJ CPT-4: J1030 03/09/2010 THER/PROPH/DIAG INJ SC/IM CPT-4: 02908 03/09/2010 THER/PROPH/DIAG INJ SC/IM CPT-4: 83782 03/09/2010 CEFTRIAXONE SODIUM INJECTION CPT-4: J0696 03/09/2010 Vital Signs Date Vital 05/28/2019 Blood Pressure 1: 126/82 Code: 8480-6 BMI: 35.0 Code: 53859-6 Heart Rate 1: 88 bpm Height: 5'4" [...] 1: 128/90 Code: 8480-6 BMI: 37.2 Code: 05486-7 Heart Rate 1: 84 bpm Height: 5'4" Respiratory Rate: 20 bpm SpO2: 95% Tempera ture: 36.6 (C) / 97.8 (F) Weight: 217 lbs 08/27/2018 Blood Pressure 1: 128/88 Code: 8480-6 BMI: 38.3 Code: 28942-2 Heart Rate 1: 84 bpm Height: 5'4" [...] 1: 119/72 Code: 8480-6 BMI: 37.4 Code: 61164-5 Heart Rate 1: 82 bpm Height: 5'4" Respiratory Rate: 12 bpm SpO2: 94% Tempera ture: 35.2 (C) / 95.4 (F) Weight: 218 lbs 12/18/2017 Blood Pressure 1: 128/86 Code: 8480-6 BMI: 37.8 Code: 25346-9 Heart Rate 1: 84 bpm Height: 5'4" [...] 1: 128/82 Code: 8480-6 BMI: 35.5 Code: 63111-3 Heart Rate 1: 84 bpm Height: 5'4" [...] 1: 128/82 Code: 8480-6 BMI: 30.2 Code: 86664-0 Heart Rate 1: 80 bpm Height: 5'4" [...] 1: 128/86 Code: 8480-6 BMI: 32.8 Code: 23848-4 Heart Rate 1: 66 bpm Height: 5'4" Respiratory Rate: 18 bpm Temperature: 36 .3 (C) / 97.3 (F) Weight: 191 lbs 06/23/2013 Blood Pressure 1: 132/94 Code: 8480-6 BMI: 34.0 Code: 86711-3 Heart Rate 1: 84 bpm Height: 5'4" Respiratory Rate: 20 bpm Temperature: 36 .8 (C) / 98.2 (F) Weight: 198 lbs 05/26/2013 Blood Pressure 1: 114/80 Code: 8480-6 BMI: 35.0 Code: 44203-4 Heart Rate 1: 80 bpm Height: 5'4" Respiratory Rate: 20 bpm Temperature: 36 .4 (C) / 97.6 (F) Weight: 204 lbs 04/16/2013 Blood Pressure 1: 114/82 Code: 8480-6 BMI: 36.7 Code: 84526-3 Heart Rate 1: 84 bpm Height: 5'4" Respiratory Rate: 20 bpm Temperature: 36 .7 (C) / 98.0 (F) Weight: 214 lbs 03/05/2013 Blood Pressure 1: 136/90 Code: 8480-6 BMI: 37.1 Code: 10368-1 Heart Rate 1: 84 bpm Height: 5'4" [...] 1: 168/114 Code: 8480-6 BMI: 36.2 Code: 64511-2 Heart Rate 1: 104 bpm Height: 5'4" Respiratory Rate: 20 bpm Temperature: 36 .8 (C) / 98.2 (F) Weight: 211 lbs 11/22/2012 Blood Pressure 1: 128/90 Code: 8480-6 Heart Rate 1: 88 bpm Respiratory Rate: 20 bpm SpO2: 96% Temperature: 36.8 (C) / 98.2 (F) 11/21/2012 Blood Pressure 1: 146/100 Code: 8480-6 BMI: 35.7 Code: 20865-6 Heart Rate 1: 96 bpm Height: 5'4" [...] 1: 138/100 Code: 8480-6 BMI: 35.7 Code: 67349-0 Heart Rate 1: 96 bpm Height: 5'4" Respiratory Rate: 20 bpm Temperature: 36 .8 (C) / 98.2 (F) Weight: 208 lbs 05/06/2012 Blood Pressure 1: 154/102 Code: 8480-6 BMI: 34.7 Code: 36724-0 Heart Rate 1: 116 bpm Height: 5'4" Respiratory Rate: 20 bpm Temperature: 36 .8 (C) / 98.2 (F) Weight: 202 lbs 04/03/2012 Blood Pressure 1: 134/94 Code: 8480-6 BMI: 34.8 Code: 52466-4 Heart Rate 1: 108 bpm Height: 5'4" Respiratory Rate: 20 bpm Temperature: 36 .8 (C) / 98.2 (F) Weight: 203 lbs 03/19/2012 Blood Pressure 1: 148/106 Code: 8480-6 BMI: 35.0 Code: 54920-8 Heart Rate 1: 100 bpm Height: 5'4" Respiratory Rate: 20 bpm Temperature: 36 .6 (C) / 97.9 (F) Weight: 204 lbs 02/22/2012 Blood Pressure 1: 146/94 Code: 8480-6 He art Rate 1: 88 bpm 02/21/2012 Blood Pressure 1: 172/120 Code: 8480-6 B lood Pressure 2: 152/106 Code: 8480-6 Heart Rate 1: 116 bpm 02/20/2012 Blood Pressure 1: 160/100 Code: 8480-6 BMI: 32.0 Code: 51201-1 Heart Rate 1: 84 bpm Height: 5'7" Temperature: 36.5 (C) / 97.7 (F) Weight: 204 lbs 01/30/2012 Blood Pressure 1: 152/110 Code: 8480-6 BMI: 32.0 Code: 59052-5 Heart Rate 1: 116 bpm Height: 5'7" Respiratory Rate: 20 bpm Temperature: 37 .0 (C) / 98.6 (F) Weight: 204 lbs 01/24/2012 Blood Pressure 1: 146/100 Code: 8480-6 BMI: 32.0 Code: 77975-1 Heart Rate 1: 100 bpm Height: 5'7" Respiratory Rate: 20 bpm Temperature: 36 .7 (C) / 98.0 (F) Weight: 204 lbs 01/10/2012 Blood Pressure 1: 156/94 Code: 8480-6 BMI: 32.6 Code: 45371-7 Heart Rate 1: 72 bpm Height: 5'7" Respiratory Rate: 20 bpm Temperature: 36 .8 (C) / 98.2 (F) Weight: 208 lbs 12/11/2011 Blood Pressure 1: 146/100 Code: 8480-6 Heart Rat e 1: 116 bpm Height: 5'7" Respiratory Rate: 20 bpm Temperature: 36.9 (C) / 98.4 (F) We ight: 11/09/2011 Blood Pressure 1: 148/96 Code: 8480-6 BMI: 32.1 Code: 25204-6 Heart Rate 1: 116 bpm Height: 5'7" Respiratory Rate: 20 bpm Temperature: 36 .7 (C) / 98.0 (F) Weight: 205 lbs 09/13/2011 Blood Pressure 1: 126/88 Code: 8480-6 Heart Rate 1: 88 bpm Height: 5'7" Respiratory Rate: 20 bpm Temperature: 36.9 (C) / 98.4 (F) We ight: 08/31/2011 Blood Pressure 1: 118/82 Code: 8480-6 BMI: 32.0 Code: 30640-2 Heart Rate 1: 80 bpm Height: 5'7" Temperature: 36.4 (C) / 97.6 (F) Weight: 204 lbs 07/06/2011 Blood Pressure 1: 128/86 Code: 8480-6 BMI: 30.9 Code: 84297-4 Heart Rate 1: 92 bpm Height: 5'7" Respiratory Rate: 20 bpm Temperature: 36 .9 (C) / 98.4 (F) Weight: 197 lbs 06/06/2011 Blood Pressure 1: 112/74 Code: 8480-6 BMI: 31.0 Code: 40180-1 Heart Rate 1: 72 bpm Height: 5'7" [...] 1: 128/92 Code: 8480-6 BMI: 33.6 Code: 56854-7 Heart Rate 1: 104 bpm Height: 5'4" [...] 08/01/2017 Patient would like t o restart tahminaricelsa cellulitis 07/19/2017 insomnia 06/27/2017 follow up 04/10/2017 [...] Check-up Encounters Encounter Performer Location Codes Date ([id number]) OFFICE/OUTPATIENT VISIT EST Diagnosis: Essential (primary) hypertension[ICD10: I10] Diagnosis: Fall from bed, sequela[ICD10: W06.XXXS] María Elena Hicks [facility] CPT-4: 16608 05/28/2019 ([id number]) NURSE/OUTPATIENT VISIT EST Diagnosis: Essential (primary) hypertension[ICD10: I10] María Elena JUARES [facility] CPT-4: 14498 05/19/2019 ([id number]) OFFICE/OUTPATIENT VISIT EST Diagnosis: Essential (primary) hypertension[ICD10: I10] Diagnosis: Type 2 diabetes mellitus with hyperglycemia[ICD10: E11.65] Diagnosis: Intervertebral disc disorders with radiculopathy, 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] Diagnosis: Hormone replacement therapy[ICD10: Z79.890] María Elena JUARES [facility] CPT-4: 19346 01/22/2019 ([id number]) OFFICE/OUTPATIENT VISIT EST Diagnosis: Essential (primary) hypertension[ICD10: I10] Diagnosis: Type 2 diabetes mellitus with hyperglycemia[ICD10: E11.65] María Elena JUARES [facility] CPT-4: 94078 09/30/2018 ([id number]) OFFICE/OUTPATIENT VISIT EST Diagnosis: Pain in left elbow[ICD10: M25.522] Diagnosis: Acute stress reaction[ICD10: F43.0] Diagnosis: Primary insomnia[ICD10: F51.01] Diagnosis: Abnormal weight gain[ICD10: R63.5] María Elena APPIAH [facility] CPT-4: 85248 08/27/2018 ([id number]) OFFICE/OUTPATIENT VISIT EST Diagnosis: Acute recurrent sinusitis, unspecified[ICD10: J01.91] Diagnosis: Follicular disorder, unspecified[ICD10: L73.9] Diagnosis: Tinea corporis[ICD10: B35.4] María Elena APPIAH [facility] CPT-4: 28626 08/09/2018 ([id number]) OFFICE/OUTPATIENT VISIT EST Diagnosis: Tinea corporis[ICD10: B35.4] Diagnosis: Anxiety disorder, unspecified[ICD10: F41.9] Diagnosis: Menopausal and female climacteric states[ICD10: N95.1] María Elena APPIAH [facility] CPT-4: 98787 07/22/2018 ([id number]) NURSE/OUTPATIENT VISIT EST Diagnosis: Cellulitis of right toe[ICD10: L03.031] María Elena APPIAH [facility] CPT-4: 52248 06/19/2018 ([id number]) OFFICE/OUTPATIENT VISIT EST Diagnosis: Cellulitis of right toe[ICD10: L03.031] Kathleen APPIAH [facility] CPT-4: 51194 06/17/2018 ([id number]) OFFICE/OUTPATIENT VISIT EST Diagnosis: Migraine without aura, intractable, without status migrainosus[ICD10: G43.019] Diagnosis: Zoster without complications[ICD10: B02.9] Kathleen PAPIAH [facility] CPT-4: 23960 05/16/2018 ([id number]) OFFICE/OUTPATIENT VISIT EST Diagnosis: Cellulitis of right lower limb[ICD10: L03.115] Kathleen APPIAH [facility] CPT-4: 05665 03/20/2018 ([id number]) OFFICE/OUTPATIENT VISIT EST Diagnosis: Cellulitis of right lower limb[ICD10: L03.115] Kathleen ORTAER DO [facility] CPT-4: 06747 03/18/2018 ([id number]) OFFICE/OUTPATIENT VISIT EST Diagnosis: Cellulitis of right lower limb[ICD10: L03.115] Kathleen APPIAH DO [facility] CPT-4: 95993 03/15/2018 ([id number]) OFFICE/OUTPATIENT VISIT EST Diagnosis: Acute sinusitis, unspecified[ICD10: J01.90] Kathleen APPIAH DO [facility] CPT-4: 52849 02/11/2018 ([id number]) NURSE/OUTPATIENT VISIT EST Diagnosis: Otitis media, unspecified, right ear[ICD10: H66.91] María Elena APPIAH DO [facility] CPT-4: 04942 02/01/2018 ([id number]) OFFICE/OUTPATIENT VISIT EST Diagnosis: Acute suppurative otitis media without spontaneous rupture of ear drum, left ear[ICD10: H66.002] Diagnosis: Abnormal weight gain[ICD10: R63.5] Diagnosis: Intervertebral disc disorders with radiculopathy, 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] Kathleen APPIAH DO [facility] CPT-4: 99 214 01/30/2018 ([id number]) PREV VISIT EST AGE 40-64 Diagnosis: Encounter for general adult medical examination without abnormal findings[ICD10: Z00.00] Diagnosis: Essential (primary) hypertension[ICD10: I10] Diagnosis: Mixed hyperlipidemia[ICD10: E78.2] Diagnosis: Type 2 diabetes mellitus with hyperglycemia[ICD10: E11.65] Diagnosis: 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] María Elena APPIAH DO [facility] CPT-4: 61727 12/18/2017 ([id number]) OFFICE/OUTPATIENT VISIT EST Diagnosis: Cellulitis of right toe[ICD10: L03.031] Diagnosis: Mixed hyperlipidemia[ICD10: E78.2] Diagnosis: Essential (primary) hypertension[ICD10: I10] Diagnosis: Hyperglycemia, unspecified[ICD10: R73.9] Diagnosis: Nontoxic goiter, 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] María Elena APPIAH DO [facility] CPT-4: 88568 12/10/2017 ([id number]) OFFICE/OUTPATIENT VISIT EST Diagnosis: Cellulitis of right toe[ICD10: L03.031] Diagnosis: Acute sinusitis, unspecified[ICD10: J01.90] Kathleen APPIAH DO [facility] CPT-4: 69969 12/07/2017 OFFICE/OUTPATIENT VISIT EST Diagnosis: Acute maxillary sinusitis, unspecified[ICD10: J01.00] Kathleen APPIAH DO [facility] CPT-4: 00988 10/08/2017 ([id number]) OFFICE/OUTPATIENT VISIT EST Diagnosis: Cellulitis of left toe[ICD10: L03.032] María Elena APPIAH DO [facility] CPT-4: 71733 09/21/2017 ([id number]) OFFICE/OUTPATIENT VISIT EST Diagnosis: Insomnia, unspecified[ICD10: G47.00] Diagnosis: Major depressive disorder, single episode, unspecified[ICD10: F32.9] Diagnosis: Anxiety disorder, unspecified[ICD10: F41.9] Diagnosis: Cellulitis of left toe[ICD10: L03.032] Diagnosis: Snoring[ICD10: R06.83] Kathleen APPIAH DO [facility] CPT-4: 74083 09/20/2017 ([id number]) OFFICE/OUTPATIENT VISIT EST Diagnosis: Cellulitis of left toe[ICD10: L03.032] María Elena APPIAH DO [facility] CPT-4: 94452 07/19/2017 OFFICE/OUTPATIENT VISIT EST Diagnosis: Chronic sinusitis, unspecified[ICD10: J32.9] Diagnosis: Generalized hyperhidrosis[ICD10: R61] Kathleen APPIAH DO [facility] CPT-4: 14366 06/27/2017 ([id number]) OFFICE/OUTPATIENT VISIT EST Diagnosis: Intervertebral disc disorders with radiculopathy, 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] Diagnosis: Primary insomnia[ICD10: F51.01] Diagnosis: Other fatigue[ICD10: R53.83] María Elena APPIAH DO [facility] CPT-4: 93317 04/10/2017 ([id number]) OFFICE/OUTPATIENT VISIT EST Diagnosis: Primary insomnia[ICD10: F51.01] Diagnosis: Localized edema[ICD10: R60.0] Diagnosis: 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] María Elena APPIAH DO [facility] CPT-4: 00691 12/13/2016 ([id number]) OFFICE/OUTPATIENT VISIT EST Diagnosis: Primary insomnia[ICD10: F51.01] Diagnosis: Cyanosis[ICD10: R23.0] María Elena Bazzi [employer] CPT-4: 04368 11/01/2016 ([id number]) PREV VISIT EST AGE 40-64 Diagnosis: Encounter for gynecological examination (general) (routine) without abnormal findings[ICD10: Z01.419] Diagnosis: Encounter for routine child health examination without abnormal findings[ICD10: Z00.129] María Elena APPIAH [employer] CPT-4: 10970 10/17/2016 ([id number]) OFFICE/OUTPATIENT VISIT EST Diagnosis: Other seasonal allergic rhinitis[ICD10: J30.2] María Elena APPIAH DO [facility] CPT-4: 20629 10/10/2016 ([id number]) OFFICE/OUTPATIENT VISIT EST Diagnosis: Pain in left arm[ICD10: M79.602] Diagnosis: Contact with and (suspected) exposure to potentially hazardous body fluids[ICD10: Z77.21] Diagnosis: 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, 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] Diagnosis: Unspecified open wound, right foot, sequela[ICD10: S91.301S] María Elena APPIAH DO [facility] CPT-4: 02841 09/19/2016 ([id number]) OFFICE/OUTPATIENT VISIT EST Diagnosis: Chronic sinusitis, unspecified[ICD10: J32.9] Diagnosis: Allergic rhinitis due to pollen[ICD10: J30.1] María Elena APPIAH [employer] CPT-4: 79342 08/24/2016 ([id number]) OFFICE/OUTPATIENT VISIT EST Diagnosis: Acute bronchitis, unspecified[ICD10: J20.9] María Elena APPIAH DO [facility] CPT-4: 43429 08/16/2016 ([id number]) OFFICE/OUTPATIENT VISIT EST Diagnosis: Otitis media, unspecified, right ear[ICD10: H66.91] Diagnosis: Acute bronchitis, unspecified[ICD10: J20.9] María Elena APPIAH DO [facility] CPT-4: 60262 08/10/2016 ([id number]) OFFICE/OUTPATIENT VISIT EST Diagnosis: Acute recurrent sinusitis, unspecified[ICD10: J01.91] Diagnosis: Allergic rhinitis due to pollen[ICD10: J30.1] María Elena APPIAH DO [facility] CPT-4: 67748 08/02/2016 ([id number]) OFFICE/OUTPATIENT VISIT EST Diagnosis: Pain in unspecified joint[ICD10: M25.50] María Elena APPIAH DO [facility] CPT-4: 82939 07/27/2016 OFFICE/OUTPATIENT VISIT EST Diagnosis: 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] Diagnosis: Acute recurrent sinusitis, unspecified[ICD10: J01.91] Diagnosis: Other fatigue[ICD10: R53.83] Diagnosis: Primary insomnia[ICD10: F51.01] Diagnosis: Pain in unspecified joint[ICD10: M25.50] María Elena APPIAH DO [facility] CPT-4: 91203 07/20/2016 ([id number]) OFFICE/OUTPATIENT VISIT EST Diagnosis: Blister (nonthermal), left great toe, initial encounter[ICD10: S90.422A] Loan Sánchez MARÍA ELENA APPIAH DO [facility] CPT-4: 04923 ([id number]) OFFICE/OUTPATIENT VISIT EST Diagnosis: Acute recurrent sinusitis, unspecified[ICD10: J01.91] María Elena APPIAH DO [facility] CPT-4: 92111 05/25/2016 ([id number]) OFFICE/OUTPATIENT VISIT EST Diagnosis: Acute sinusitis, unspecified[ICD10: J01.90] María Elena APPIAH DO [facility] CPT-4: 46415 04/26/2016 ([id number]) OFFICE/OUTPATIENT VISIT EST Diagnosis: Flushing[ICD10: R23.2] Diagnosis: Primary insomnia[ICD10: F51.01] María Elena APPIAH DO [facility] CPT-4: 45107 03/02/2016 ([id number]) OFFICE/OUTPATIENT VISIT EST Diagnosis: Other seasonal allergic rhinitis[ICD10: J30.2] Loan APPIAH DO [facility] CPT-4: 78421 02/09/2016 ([id number]) OFFICE/OUTPATIENT VISIT EST Diagnosis: Primary insomnia[ICD10: F51.01] Diagnosis: Urinary tract infection, site not specified[ICD10: N39.0] María Elena APPIAH DO [facility] CPT-4: 06211 01/24/2016 ([id number]) OFFICE/OUTPATIENT VISIT EST Diagnosis: Other specified disorders of Eustachian tube, bilateral[ICD10: H69.83] Diagnosis: Allergic rhinitis, unspecified[ICD10: J30.9] Loan APPIAH DO [facility] CPT-4: 64019 12/23/2015 ([id number]) OFFICE/OUTPATIENT VISIT EST Diagnosis: Acute recurrent sinusitis, unspecified[ICD10: J01.91] Diagnosis: 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] Diagnosis: Allergic rhinitis, unspecified[ICD10: J30.9] María Elena APPIAH DO [facility] CPT-4: 04332 12/08/2015 ([id number]) OFFICE/OUTPATIENT VISIT EST Diagnosis: Allergic rhinitis, unspecified[ICD10: J30.9] Diagnosis: Pain in unspecified joint[ICD10: M25.50] María Elena APPIAH DO [facility] CPT-4: 40287 10/07/2015 ([id number]) OFFICE/OUTPATIENT VISIT EST Diagnosis: Essential (primary) hypertension[ICD10: I10] María Elena APPIAH DO [facility] CPT-4: 55059 10/06/2015 OFFICE/OUTPATIENT VISIT EST Diagnosis: Localized enlarged lymph nodes[ICD10: R59.0] Diagnosis: Local infection of the skin and subcutaneous tissue, unspecified[ICD10: L08.9] June APPIAH DO [facility] CPT- 4: 19505 09/14/2015 ([id number]) OFFICE/OUTPATIENT VISIT EST Diagnosis: Essential (primary) hypertension[ICD10: I10] Diagnosis: Actinic keratosis[ICD10: L57.0] María Elena APPIAH DO [facility] CPT-4: 84563 09/07/2015 ([id number]) OFFICE/OUTPATIENT VISIT EST Diagnosis: Essential (primary) hypertension[ICD10: I10] Diagnosis: Acute stress reaction[ICD10: F43.0] María Elena APPIAH DO [facility] CPT-4: 91185 08/18/2015 ([id number]) OFFICE/OUTPATIENT VISIT EST Diagnosis: Essential (primary) hypertension[ICD10: I10] María Elena APPIAH DO [facility] CPT-4: 39409 07/07/2015 ([id number]) OFFICE/OUTPATIENT VISIT EST Diagnosis: Essential (primary) hypertension[ICD10: I10] María Elena APPIAH DO [facility] CPT-4: 19196 06/24/2015 ([id number]) OFFICE/OUTPATIENT VISIT EST Diagnosis: Essential (primary) hypertension[ICD10: I10] María Elena APPIAH DO [facility] CPT-4: 80035 06/21/2015 ([id number]) OFFICE/OUTPATIENT VISIT EST Diagnosis: Essential (primary) hypertension[ICD10: I10] Diagnosis: Mixed hyperlipidemia[ICD10: E78.2] Diagnosis: Acute stress reaction[ICD10: F43.0] Diagnosis: Primary insomnia[ICD10: F51.01] María Elena APPIAH DO [facility] CPT-4: 59743 06/16/2015 ([id number]) OFFICE/OUTPATIENT VISIT EST Diagnosis: INSOMNIA NOS[ICD9: 780.52] Diagnosis: HYPERTENSION[ICD9: 401.9] Diagnosis: Stress reaction[ICD9: 308.9] María Elena APPIAH DO [facility] CPT-4: 69693 06/02/2015 ([id number]) OFFICE/OUTPATIENT VISIT EST Diagnosis: HYPERTENSION[ICD9: 401.9] Diagnosis: Stress reaction[ICD9: 308.9] María Elena APPIAH DO [facility] CPT-4: 01528 05/20/2015 ([id number]) OFFICE/OUTPATIENT VISIT EST Diagnosis: Skin lesion[ICD9: 709.9] 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] María Elena APPIAH DO [facility] CPT-4: 64877 05/10/2015 ([id number]) OFFICE/OUTPATIENT VISIT EST Diagnosis: SINUSITIS, ACUTE[ICD9: 461.9] Diagnosis: ALLERGIC RHINITIS[ICD9: 477.9] Diagnosis: DERMATITIS NOS[ICD9: 692.9] María Elena REHMAN [facility] CPT-4: 33225 03/16/2015 OFFICE/OUTPATIENT VISIT EST Diagnosis: Otitis media[ICD9: 382.9] Diagnosis: SINUSITIS, ACUTE[ICD9: 461.9] June VanAlbertadaniella APPIAH DO [facility] CPT-4: 44343 09/11/2014 ([id number]) OFFICE/OUTPATIENT VISIT EST Diagnosis: HYPERLIPIDEMIA NEC/NOS[ICD9: 272.4] María Elena APPIAH DO [facility] CPT-4: 35423 08/31/2014 ([id number]) OFFICE/OUTPATIENT VISIT EST Diagnosis: - I - HYPERTENSION[ICD9: 401.9] Diagnosis: HYPERLIPIDEMIA NEC/NOS[ICD9: 272.4] María Elena APPIAH DO [facility] CPT-4: 76740 08/27/2014 ([id number]) OFFICE/OUTPATIENT VISIT EST Diagnosis: ABDOMINAL PAIN[ICD9: 789.00] Diagnosis: DYSPEPSIA[ICD9: 536.8] Diagnosis: Thoracic back pain[ICD9: 724.1] María Elena APPIAH [facility] CPT-4: 56280 07/21/2014 ([id number]) OFFICE/OUTPATIENT VISIT EST Diagnosis: ALLERGIC RHINITIS[ICD9: 477.9] María Elena APPIAH DO [facility] CPT-4: 18555 07/15/2014 ([id number]) OFFICE/OUTPATIENT VISIT EST Diagnosis: EDEMA[ICD9: 782.3] Diagnosis: Chronic insomnia[ICD9: 780.52] María Elena APPIAH [facility] CPT-4: 66727 05/18/2014 ([id number]) OFFICE/OUTPATIENT VISIT EST Diagnosis: Thyromegaly[ICD9: 240.9] Diagnosis: - I - HYPERTENSION[ICD9: 401.9] Diagnosis: ROUTINE MEDICAL EXAM[ICD9: V70.0] Diagnosis: EDEMA[ICD9: 782.3] María Elena APPIAH [facility] CPT-4: 68525 05/14/2014 OFFICE/OUTPATIENT VISIT EST Diagnosis: BRONCHITIS, ACUTE[ICD9: 466.0] Diagnosis: SINUSITIS, ACUTE[ICD9: 461.9] María Elena APPIAH [facility] CPT-4: 53052 04/21/2014 OFFICE/OUTPATIENT VISIT EST Diagnosis: SINUSITIS, ACUTE[ICD9: 461.9] June Washingtongurmeetfatimah MARÍA ELENA APPIAH [facility] CPT-4: 62131 03/04/2014 ([id number]) OFFICE/OUTPATIENT VISIT EST Diagnosis: VACCINE FOR TDAP[ICD10: Z23] María Elena APPIAH [facility] CPT-4: 69492 02/27/2014 ([id number]) OFFICE/OUTPATIENT VISIT EST Diagnosis: Seborrheic keratoses, inflamed[ICD9: 702.11] Diagnosis: ACTINIC KERATOSIS[ICD9: 702.0] Diagnosis: INSOMNIA NOS[ICD9: 780.52] María Elena PANDYA [facility] CPT-4: 24804 01/13/2014 OFFICE/OUTPATIENT VISIT EST 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] Diagnosis: ALLERGIC RHINITIS[ICD9: 477.9] Diagnosis: Serous otitis media[ICD9: 381.4] María Elena APPIAH [facility] CPT-4: 90980 12/24/2013 ([id number]) OFFICE/OUTPATIENT VISIT EST Diagnosis: SINUSITIS, ACUTE[ICD9: 461.9] Diagnosis: ALLERGIC RHINITIS[ICD9: 477.9] Diagnosis: 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] María Elena [facility] CPT-[facility]: 84890 11/12/2013 ([id number]) OFFICE/OUTPATIENT VISIT EST Diagnosis: ALLERGIC RHINITIS[ICD9: 477.9] Diagnosis: SINUSITIS, ACUTE[ICD9: 461.9] María Elena APPIAH [facility] CPT-4: 61142 10/21/2013 ([id number]) OFFICE/OUTPATIENT VISIT EST Diagnosis: ASYMPTOMATIC VARICOSE VEINS[ICD9: 454.9] Diagnosis: INSOMNIA NOS[ICD9: 780.52] María Elena [facility] CPT-4: 35330 09/22/2013 OFFICE/OUTPATIENT VISIT EST Diagnosis: SINUSITIS, ACUTE[ICD9: 461.9] June VanAlbertagurmeetfatimah [facility] CPT-[facility]: 51883 08/27/2013 ([id number]) OFFICE/OUTPATIENT VISIT EST Diagnosis: CEPHALGIA[ICD9: 784.0] Diagnosis: CEPHALGIA, TENSION[ICD9: 307.81] 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] María Elena [facility] CPT-4: 97840 08/04/2013 ([id number]) OFFICE/OUTPATIENT VISIT EST Diagnosis: Cervicalgia[ICD9: 723.1] Diagnosis: SPASM OF MUSCLE[ICD9: 728.85] Diagnosis: CEPHALGIA, TENSION[ICD9: 307.81] María Elena [facility] CPT-4: 04731 07/23/2013 ([id number]) OFFICE/OUTPATIENT VISIT EST 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] Diagnosis: ALLERGIC RHINITIS[ICD9: 477.9] María Elena Seamusmindimaryjane MONTEROMARÍA ELENA Alan APPIAH [facility] CPT-4: 95676 06/23/2013 ([id number]) OFFICE/OUTPATIENT VISIT EST Diagnosis: ALLERGIC RHINITIS[ICD9: 477.9] Diagnosis: ACUTE SEROUS OTITIS MEDIA[ICD9: 381.01] Diagnosis: 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] María Elena Seamusdawn JUARES AlanJj TD [facility] CPT-4: 19861 05/26/2013 ([id number]) OFFICE/OUTPATIENT VISIT EST Diagnosis: HYPERTENSION[ICD9: 401.9] Diagnosis: EDEMA[ICD9: 782.3] Diagnosis: Serous otitis media[ICD9: 381.4] María Elena Seamusdawn JUARES AlanJj TD [facility] CPT-4: 59729 04/16/2013 ([id number]) OFFICE/OUTPATIENT VISIT EST Diagnosis: SINUSITIS, ACUTE[ICD9: 461.9] Diagnosis: ALLERGIC RHINITIS[ICD9: 477.9] Diagnosis: EDEMA[ICD9: 782.3] Diagnosis: Thyromegaly[ICD9: 240.9] Diagnosis: MALAISE AND FATIGUE[ICD9: 780.79] María Elenamarcella Lopez AlanJj [facility] CPT-4: 49398 03/05/2013 ([id number]) OFFICE/OUTPATIENT VISIT EST Diagnosis: PAIN, LOWER BACK[ICD9: 724.2] Diagnosis: SPASM OF MUSCLE[ICD9: 728.85] María Elena JUARES AlanJj TD [facility] CPT-4: 14737 12/23/2012 OFFICE/OUTPATIENT VISIT EST Diagnosis: Low back pain[ICD9: 724.2] Lashawn Hicks [facility] CPT-4: 40804 12/16/2012 ([id number]) OFFICE/OUTPATIENT VISIT EST Diagnosis: PAIN, LOWER BACK[ICD9: 724.2] Diagnosis: SCIATICA[ICD9: 724.3] Diagnosis: Lumbar herniated disc[ICD9: 722.10] María Elena COLON AlanJj [facility] CPT-4: 86456 12/09/2012 ([id number]) OFFICE/OUTPATIENT VISIT EST Diagnosis: PAIN, LOWER BACK[ICD9: 724.2] Diagnosis: SCIATICA[ICD9: 724.3] Diagnosis: LUMBAR DISC DISPLACEMENT[ICD9: 722.10] María Elena MARIN AlanJj TD [facility] CPT-4: 40378 12/04/2012 OFFICE/OUTPATIENT VISIT EST Diagnosis: Pneumonia[ICD9: 486] Mary DelucaLeigh JUARES AlanJj TD [facility] CPT-4: 53154 11/22/2012 ([id number]) OFFICE/OUTPATIENT VISIT EST Diagnosis: PNEUMONIA, ORGANISM[ICD9: 486] Diagnosis: Exacerbation of RAD (reactive airway disease)[ICD9: 493.92] María Elena JUARES AlanJj TD [facility] CPT-4: 13914 11/21/2012 OFFICE/OUTPATIENT VISIT EST Diagnosis: HYPERTENSION[ICD9: 401.9] Diagnosis: Cephalgia[ICD9: 784.0] Lashawn JUARES AlanJj TD [facility] CPT-4: 36007 10/29/2012 ([id number]) OFFICE/OUTPATIENT VISIT EST Diagnosis: MALAISE AND FATIGUE[ICD9: 780.79] Diagnosis: ARTHRALGIA-MULTIPLE SITES[ICD9: 719.49] María Elena MONTERO APARNAALCIDES AlanJj TD [facility] CPT-4: 55328 10/14/2012 ([id number]) OFFICE/OUTPATIENT VISIT EST Diagnosis: URINARY FREQUENCY[ICD9: 788.41] María Elena JUARES AlanJj TD [facility] CPT-4: 62935 09/27/2012 ([id number]) OFFICE/OUTPATIENT VISIT EST Diagnosis: MALAISE AND FATIGUE[ICD9: 780.79] Diagnosis: ARTHRALGIA-MULTIPLE SITES[ICD9: 719.49] María Elena REED AlanJj TD [facility] CPT-4: 65624 09/25/2012 ([id number]) OFFICE/OUTPATIENT VISIT EST Diagnosis: SINUSITIS, ACUTE[ICD9: 461.9] Diagnosis: EUSTACHIAN TUBE DYSFUNCTION[ICD9: 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] María Elena JUARES AlanJj TD [facility] CPT-4: 10487 08/29/2012 OFFICE/OUTPATIENT VISIT EST Diagnosis: ACTINIC KERATOSIS[ICD9: 702.0] Diagnosis: Inflamed seborrheic keratosis[ICD9: 702.11] Diagnosis: Skin cancer of face[ICD9: 173.31] Diagnosis: HYPERTENSION[ICD9: 401.9] María Elena SEYMOUR [facility] CPT-4: 09323 08/12/2012 ([id number]) OFFICE/OUTPATIENT VISIT EST Diagnosis: ARTHRALGIA-MULTIPLE SITES[ICD9: 719.49] Diagnosis: GOUT[ICD9: 274.9] Diagnosis: HYPERTENSION[ICD9: 401.9] Diagnosis: Tachycardia[ICD9: 785.0] María Elena WAYTaiwo BRADFORD [facility] CPT-4: 46451 05/06/2012 ([id number]) OFFICE/OUTPATIENT VISIT EST Diagnosis: INSOMNIA NOS[ICD9: 780.52] María Elena [facility] CPT-4: 36465 04/03/2012 ([id number]) OFFICE/OUTPATIENT VISIT EST Diagnosis: INSOMNIA NOS[ICD9: 780.52] Diagnosis: HYPERTENSION[ICD9: 401.9] Diagnosis: MIGRAINE NOS/NOT INTRCBL[ICD9: 346.90] María Elena ValdesJj [facility] CPT-[facility]: 92226 03/19/2012 ([id number]) OFFICE/OUTPATIENT VISIT EST Diagnosis: CELLULITIS[ICD9: 682.9] Diagnosis: Ankle pain[ICD9: 719.47] Diagnosis: HYPERTENSION[ICD9: 401.9] María Elena SEYMOUR [facility] CPT-4: 37422 02/20/2012 ([id number]) OFFICE/OUTPATIENT VISIT EST Diagnosis: MIGRAINE NOS/NOT INTRCBL[ICD9: 346.90] Diagnosis: Vomiting[ICD9: 787.03] María Elena ValdesJj [facility] CPT-4: 19070 01/30/2012 ([id number]) OFFICE/OUTPATIENT VISIT EST Diagnosis: EDEMA[ICD9: 782.3] Diagnosis: HYPERTENSION[ICD9: 401.9] Diagnosis: ALLERGIC RHINITIS[ICD9: 477.9] Diagnosis: ARTHRALGIA-MULTIPLE SITES[ICD9: 719.49] María Elena APPIAH [employer] [facility] CPT-4: 86911 01/24/2012 ([id number]) OFFICE/OUTPATIENT VISIT EST Diagnosis: SPASM OF MUSCLE[ICD9: 728.85] Diagnosis: Thoracic back pain[ICD9: 724.1] Diagnosis: Cervical pain[ICD9: 723.1] María Elena Seamusdawn JUARES Fabiola PANDYA [facility] CPT-4: 00383 01/10/2012 OFFICE/OUTPATIENT VISIT EST Diagnosis: PAIN, LOWER BACK[ICD9: 724.2] Diagnosis: LUMBAR DISC DISPLACEMENT[ICD9: 722.10] María Elena CulverJARED APPIAH [employer] [facility] CPT-4: 01169 12/11/2011 OFFICE/OUTPATIENT VISIT EST Diagnosis: MIGRAINE NOS/NOT INTRCBL[ICD9: 346.90] Diagnosis: SINUSITIS, ACUTE[ICD9: 461.9] María Elena Waymindimaryjane ORTA [employer] [facility] CPT-4: 31019 11/09/2011 OFFICE/OUTPATIENT VISIT EST Diagnosis: MIGRAINE NOS/NOT INTRCBL[ICD9: 346.90] Diagnosis: LYMPHADENOPATHY[ICD9: 785.6] María Elena APPIAH [employer] [facility] CPT-4: 33503 09/13/2011 OFFICE/OUTPATIENT VISIT EST Diagnosis: MALAISE AND FATIGUE[ICD9: 780.79] Diagnosis: ARTHRALGIA-MULTIPLE SITES[ICD9: 719.49] María Elena MONTERO APARNAALCIDES AlanJj TD [employer] [facility] CPT-4: 51790 08/31/2011 OFFICE/OUTPATIENT VISIT EST Diagnosis: SINUSITIS, ACUTE[ICD9: 461.9] María Elena ELLISLINE Fabiola APPIAH [employer] [facility] CPT-4: 64006 07/20/2011 OFFICE/OUTPATIENT VISIT EST Diagnosis: HYPERTENSION[ICD9: 401.9] Diagnosis: PAIN, LOWER BACK[ICD9: 724.2] Diagnosis: SPASM OF MUSCLE[ICD9: 728.85] María Elena Seamusdawn JUARES AlanJj TD [employer] [facility] CPT-4: 60497 07/06/2011 OFFICE/OUTPATIENT VISIT EST Diagnosis: MIGRAINE NOS/NOT INTRCBL[ICD9: 346.90] Diagnosis: HYPERTENSION[ICD9: 401.9] María Elena WAY NDER DO [facility] CPT-4: 66859 05/22/2011 OFFICE/OUTPATIENT VISIT EST Diagnosis: SINUSITIS, ACUTE[ICD9: 461.9] Diagnosis: MIGRAINE NOS/NOT INTRCBL[ICD9: 346.90] Diagnosis: Dehydration[ICD9: 276.51] Diagnosis: Vomiting[ICD9: 787.03] María Elena Waymindimaryjane WAYNDE R DO [facility] CPT-4: 11247 05/09/2011 ([id number]) OFFICE/OUTPATIENT VISIT EST María Elena ISAAC UELINE S. ORENDER DO [facility] CPT-4: 26320 02/14/2011 ([id number]) OFFICE/OUTPATIENT VISIT EST María Elena ISAAC UJARED S. ORENDER DO [facility] CPT-4: 54138 02/03/2011 ([id number]) OFFICE/OUTPATIENT VISIT EST María Elena ISAAC [facility]INE [facility] CPT-4: 76117 01/31/2011 ([id number]) OFFICE/OUTPATIENT VISIT EST María Elena ISAAC UELINE S. ORENDER DO [facility] CPT-4: 75052 01/25/2011 ([id number]) OFFICE/OUTPATIENT VISIT EST María Elena ISAAC UELINE S. ORENDER DO [facility] CPT-4: 41042 01/18/2011 ([id number]) OFFICE/OUTPATIENT VISIT EST María Elena ISAAC UELINE S. ORENDER DO [facility] CPT-4: 42317 11/29/2010 ([id number]) OFFICE/OUTPATIENT VISIT, EST María Elena Waymindimaryjane REED [facility] CPT-4: 34920 10/10/2010 ([id number]) OFFICE/OUTPATIENT VISIT, EST María Elena REED [facility] CPT-4: 64057 06/07/2010 ([id number]) OFFICE/OUTPATIENT VISIT, EST María Elenamarcella Waymindimaryjane BRAUNALCIDES S. ORENDER DO [facility] CPT-4: 56497 04/27/2010 ([id number]) OFFICE/OUTPATIENT VISIT, EST María Elena [facility] CPT-4: 10124 04/05/2010 ([id number]) OFFICE/OUTPATIENT VISIT, EST María Elena REED SJj [facility] CPT-4: 19957 03/09/2010 ([id number]) OFFICE/OUTPATIENT VISIT, EST María Elena [facility] CPT-4: 76933 03/03/2010 ([id number]) OFFICE/OUTPATIENT VISIT, EST María Elena Hicks [facility] CPT-4: 53938 01/17/2010 ([id number]) PREV VISIT, EST, AGE 40-64 María Elena WAYNDER DO [facility] CPT-4: 88218 12/27/2009 Plan of Care Planned Activity Notes Codes Status Date Appointment: María Elena Appiah WPtel: [address] [place], [place] [phone] [place] Won't have the new insurance till [...] I10 05/28/2019 Appointment: María Elena Appiah WPtel: [address] [place], [place] [phone] [place] FOLLOW UP 05/28/2019 Appointment: María Elena Appiah WPtel: [address] [place], [place] [phone] [place] BP CHECK 05/19/2019 Visit Diagnosis Plan: [...] 01/22/2019 Appointment: María Elena Appiah WPtel: [address] [place], [place] [address] [place] FOLLOW UP 01/22/2019 Patient Education: estradiol- [employer] Coupon [id number] [email or web address]/resources/[email or web address]-[email or web address] Completed 01/22/2019 Appointment: María Elena Appiah WPtel: [address] [place], [place] [phone] [place] CANCELED 01/20/2019 Appointment: María Elena Appiah WPtel: [address] [place] [address] [place] LM NO SHOW 01/06/2019 Appointment: María Elena Appiah WPtel: [address] [place] [address] [place] CANCELED 10/17/2018 Appointment: María Elena Appiah WPtel: [address] [place], [place] [phone] [place] BP CHECK 10/09/2018 Visit Diagnosis Plan: [...] I10 09/30/2018 Appointment: María Elena Appiah WPtel: [address] [place] [address] [place] FOLLOW UP 09/30/2018 Visit Diagnosis Plan: [...] F51.01 08/27/2018 Appointment: María Elena Appiah WPtel: [address] [place] [address] ACUTE ILLNESS 08/27/2018 Appointment: María Elena Appiah WPtel: [address] [place] [address] [place] Patient stated she went out to [...] Tyle... 08/09/2018 Appointment: María Elena Appiahtel: [address] [place], [place] [phone] ACUTE ILLNESS 08/09/2018 Appointment: María Elena Appiah WPtel: [address] [place] [address] [place] NO SHOW 08/08/2018 Visit Diagnosis Plan: [...] B35.4 07/22/2018 Appointment: María Elena Appiah WPtel: [address] [place] [address] ACUTE ILLNESS 07/22/2018 Appointment: María Elena Appiah WPtel: [address] [place] [address] [place] INJECTION 06/19/2018 Patient Education: Patient Medication [...] : L03.031 06/17/2018 Appointment: Kathleen Zuniga [address] [place], [place] [phone] ACUTE ILLNESS 06/17/2018 Patient Education: Patient Medication [...] : B02.9 05/16/2018 Appointment: Kathleen Zuniga [address] [place], [place] [phone] ACUTE ILLNESS 05/16/2018 Patient Education: Patient Medication [...] : L03.115 03/20/2018 Appointment: Kathleen Zuniga [address] [place], [place] [address] FOLLOW UP 03/20/2018 Patient Education: Patient Medication [...] ICD-10 : L03.115 03/18/2018 Appointment: Kathleen Zuniga [address] [place], [place] [phone] FOLLOW UP 03/18/2018 Patient Education: Patient Medication [...] : L03.115 03/15/2018 Appointment: Kathleen Zuniga [address] [facility] ACUTE ILLNESS 03/15/2018 Patient Education: Patient Medication [...] ICD-10 : J01.90 02/11/2018 Appointment: Kathleen Zuniga [address] [place] [address] ACUTE ILLNESS 02/11/2018 Patient Education: Patient Medication Summary Completed 02/11/2018 Appointment: María Elena Appiah WPtel: [phone] [place] [facility] INJECTION 02/01/2018 Patient Education: Patient [...] : M51.16 01/30/2018 Appointment: Kathleen Zuniga [address] [facility] ACUTE ILLNESS 01/30/2018 Patient Education: Patient Medication [...] 12/18/2017 Appointment: María Elena Appiah WPtel: [address] [place], [place] [phone] Annual Well Visit 12/18/2017 Patient Education: Patient Medication Summary Completed 12/18/2017 Care Plan: Referral Order SNOMED-CT : [id number] Pending 12/18/2017 Appointment: María Elena Appiah WPtel: [facility] [place] [facility] [place] INJECTION 12/10/2017 Patient Education: [...] : L03.031 12/07/2017 Appointment: Kathleen Zuniga [address] [place], [place] [phone] ACUTE ILLNESS 12/07/2017 Patient Education: Patient Medication [...] : J01.00 10/08/2017 Appointment: Kathleen Zuniga [address] [place], [place] [phone] ACUTE ILLNESS 10/08/2017 Patient Education: Patient Medication Summary Completed 10/08/2017 Appointment: María Elena Appiah [facility]Ptel[facility] [phone] [facility] [facility] 09/21/2017 Patient Education: Patient Medication Summary [...] : R06.83 09/20/2017 Appointment: Kathleen Zuniga [address] [place], [place] [phone] ACUTE ILLNESS 09/20/2017 Patient Education: Patient Medication [...] : L60.0 08/29/2017 Appointment: Kathleen Zuniga [address] [place], [place] [phone] OFFICE SURGERY 08/29/2017 Patient Education: Patient Medication Summary Completed 08/29/2017 Visit Diagnosis Plan: Actinic keratosis Discussion: Cr yotherapy as above ICD-9 : 702.0 ICD-10 : L57.0 08/01/2017 Appointment: María Elena Appiah WPtel: [phone] [id number] OFFICE SURGERY 08/01/2017 Patient Education: Patient Medication Summary Completed 08/01/2017 Appointment: María Elena Appiah WPtel: [phone] [phone] [place] PATIENT THOUGHT APPOINTMENT WAS TOMORROW 07/26/17 CALLED 15 MINUTES BEFORE APPT TO SAY SHE DIDN'T HAVE ANYONE TO COVER HER BUSINESS AND WOULD NOT MAKE IT NO SHOW 07/25/2017 Visit Diagnosis Plan: Cellulitis of left toe Discussio n: Clindamycin and notify if worsening or persistis ICD-9 : 681.10 ICD-10 : L03.032 07/19/2017 Appointment: María Elena Appiah WPtel: [address] [place], [place] [id number] MEDICATION REVIEW 07/19/2017 Patient Education: Patient Medication Summary Completed 07/19/2017 Appointment: María Elena Appiah WPtel: [phone] [facility] [place] CANCELED 07/04/2017 Visit Diagnosis Plan: Generalized hyperhidrosis Discus ian: CBC, CMP, TSH, free T4 ordered to assess. will review labs. ICD-9 : 780.8 ICD-10 : R61 06/27/2017 Visit Diagnosis Plan: Chronic sinusitis, unspecified D iscussion: Referral sent to dr. albarado in [place] per patient request. patient has been treated multiple times for sinus infections with no recovery. patient was seen by dr sanchez in the past with no interventions. patient has deviated septum which may be affecting her sinuses. 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, including hip Discussion: Shave removal of above lesio n--sent to pathology ICD-9 : 216.7 ICD-10 : D23.72 01/24/2017 Appointment: aMría Elena Appiah WPtel: [address] [place], [place] [phone] 01/23 confirmed ~sl OFFICE SURGERY 01/24/2017 Patient Education: Patient Medication Summary Completed 01/24/2017 Appointment: Loan Sánchez [address] [place], [place] [phone] 01/09 rescheduled~sl RESCHEDULED 01/15/2017 Visit Diagnosis [...] 12/13/2016 Appointment: María Elena Appiah WPtel: [address] [place], [place] [phone] 12/12 confirmed ~sl MEDICATION REVIEW 12/13/2016 Patient Education: Patient Medication Summary Completed 12/13/2016 Appointment: María Elena Appiah WPtel: [address] [place], [place] [phone] [place] rescheduled for 12/13/16 at 11am RESCHEDULED 0 12/06/2016 Appointment: María Elena Appiah WPtel: [phone] [facility] [place] CANCELED 11/23/2016 Patient Education: Patient Medication [...] F51.01 11/01/2016 Appointment: María Elena Appiah WPtel: [address] [place], [place] [phone] 10/31 lm `sl 11/01 lm`sl MEDICATION REVIEW 017 Patient Education: Patient Medication Summary Completed 11/01/2016 Referral: Canelo Overton WPtel: [facility] Myrtle [place] [id number] [place] Referral Initiated 10/30/2016 Visit Diagnosis Plan: [...] Z01.419 10/17/2016 Appointment: María Elena Appiah WPtel: [address] [place], [place] [phone] 2 confirmed ~sl PAP 10/17/2016 Patient Education: Patient Medication Summary Completed 10/17/2016 Care Plan: MAMMOGRAM SCRE[facility]ING [facility] : 2 6347-5 Pending 10/17/2016 Visit Diagnosis Plan: Other seasonal allergic rhinitis Discussion: Decadron/Garamycin Nasal Armona Mix Too soon for steroid Retry zyrtec 10mg daily ICD-9 : 477.9 ICD-10 : J30.2 10/10/2016 Appointment: María Eelna Appiah WPtel: [address] [place], [place] [phone] FOLLOW UP 10/10/2016 Patient Education: Patient Medication Summary Completed 10/10/2016 Appointment: María Elena Appiah WPtel: [address] [place] [phone] 10/02 reschedule `sl RESCHEDULED 10/02/2016 Visit Plan: See surgery for removal of n ew left arm lesion and right foot lesion Lyrica to use next month for left arm paresthesias Continue current meds Discussed sunscreen/sunblock combo 09/19/2016 Appointment: María Elena Appiah WPtel: [address] [place] [address] 09/18 confirmed ~sl FOLLOW UP 09/19/2016 Patient Education: Patient Medication Summary Completed 09/19/2016 Patient Education: Patient Medication Summary Completed 09/18/2016 Care Plan: MAMMOGRAM BOTH BREASTS LOINC : 91226-4 Pending 09/18/2016 Visit Plan: Discussed that needs [...] sinuses 08/24/2016 Appointment: María Elena Appiah WPtel: [address] [place] [address] ACUTE ILLNESS 08/24/2016 Patient Education: Patient Medication Summary Completed 08/24/2016 Patient Education: Patient Medication Summary Completed 08/23/2016 Care Plan: MAMMOGRAM SCREENING LOINC : 2 6347-5 Pending 08/23/2016 Visit Plan: Finish doxycycline Add Breo 100/25 1 p BID for 2 weeks If not improving within next 2 days will get CXR 08/16/2016 Appointment: María Elena Appiahtel: [address] [place] [address] ACUTE ILLNESS 08/16/2016 Patient Education: Patient Medication Summary Completed 08/16/2016 Visit Plan: Supportive care. Rest, Fluid s, Tylenol/Motrin prn fever or bodyaches. Notify if worsening symptoms. Doxycyline and Prednisone 08/10/2016 Appointment: María Elena Appiah WPtel: [address] [place] [address] 08/09 lm`sl....confirmed-sp FOLLOW UP 09/2015 Patient Education: Patient Medication Summary Completed 08/10/2016 Visit Plan: Saline nasal flushes prn. Ty lenol/Motrin prn headache. Notify if persists/symptoms worsening. Dexamethasone 8mg IM today May use coricedan and mucinex 08/02/2016 Appointment: María Elena Appiah WPtel: [address] [place] [address] ACUTE ILLNESS 08/02/2016 Patient Education: Patient Medication Summary Completed 08/02/2016 Visit Plan: Cryotherapy as above and lef t forearm lesion removal as above with 5-0 punch biopsy and sent to path Return in 10 days for suture removal 08/01/2016 Appointment: María Elena Appiah WPtel: [address] [place] [address] 07/31 confirmed`~sl OFFICE SURGERY 08/01/2016 Patient Education: Patient Medication Summary Completed 08/01/2016 Visit Plan: Stop clindamycin Check CBC, CMP, ESR now/STAT 07/27/2016 Appointment: María Elena Appiah WPtel: [address] [place] [address] ACUTE ILLNESS 07/27/2016 Patient Education: Patient Medication Summary Completed 07/27/2016 Visit Plan: Update lab and check ABIs to start with Will likely need cardiology evaluation to rule out PVD Clindamycin for 10 days Daily yogurt or probiotic Will return for removal of left arm lesions 07/20/2016 Appointment: María Elena Appiah WPtel: [address] [place] [address] ACUTE ILLNESS 07/20/2016 Patient Education: Patient Medication Summary Completed 07/20/2016 Patient Education: Patient Medication Summary Completed 07/20/2016 Care Plan: MAMMOGRAM BOTH BREASTS LOINC : 82459-7 Pending 07/20/2016 Care Plan: US EXAM CHEST LOINC : 91797-7 Pending 07/20/2016 Visit Plan: Wound culture collected from left great toe Appearance is somewhat staph like Rx as above Wound cleanser and skin care reviewed May need to add oral antibiotic if sores do not heal or continue to reoccur 07/06/2016 Appointment: Loan Sánchez [address] [place] [address] ACUTE ILLNESS 07/06/2016 Patient Education: Patient Medication Summary Completed 07/06/2016 Appointment: María Elena Appiah WPtel: [address] [place] [address] [place] INJECTION 05/25/2016 Patient Education: Patient Medication Summary Completed 05/25/2016 Visit Plan: Saline nasal flushes prn. Ty lenol/Motrin prn headache. Notify if persists/symptoms worsening. Dexamethasone and Rocephin given 04/26/2016 Appointment: María Elena Appiah WPtel: [address] [place] [address] ACUTE ILLNESS 04/26/2016 Patient Education: Patient Medication Summary Completed 04/26/2016 Visit Plan: Check CBC, CMP, TSH, FreeT4, HbA1C, estradiol, lipids in AM 03/02/2016 Appointment: María Elena Appiah WPtel: [address] [place] [address] 03/01 lm~sl ACUTE ILLNESS 03/02/2016 Patient Education: Patient Medication Summary Completed 03/02/2016 Visit Plan: Exam is nearly normal Needs to be taking daily antihistamine Would prefer to use oral steroids instead of shot but patient insist that oral steroids cause horrible headaches for her Will given kenalog IM instead 02/09/2016 Appointment: Loan Sánchez [address] [place] [address] ACUTE ILLNESS 02/09/2016 Patient Education: Patient Medication Summary Completed 02/09/2016 Visit Plan: Culture urine Macrobid DC xa nax Trial of Ativan 1mg q HS 01/24/2016 Appointment: María Elena Appiah WPtel: [address] [place] [address] ACUTE ILLNESS 01/24/2016 Patient Education: Patient Medication Summary Completed 01/24/2016 Visit Plan: No steroid or rocephin injec tion warranted Can have oral prednisone Continue current home regimen Needs to follow up with Dr Sanchez if problems persist 12/23/2015 Appointment: Loan Sánchez [address] [place] [address] ACUTE ILLNESS 12/23/2015 Patient Education: Patient Medication Summary Completed 12/23/2015 Visit Plan: Saline nasal flushes prn. Ty lenol/Motrin prn headache. Notify if persists/symptoms worsening. Kenalog 40mg IM today 12/08/2015 Appointment: María Elena Appiah WPtel: [address] [place] [address] 12/06 confirmed~ ACUTE ILLNESS 12/08/2015 Patient Education: Patient Medication Summary Completed 12/08/2015 Appointment: María Elena Appiah WPtel: [address] [place] [address] ACUTE ILLNESS 11/18/2015 Patient Education: Patient Medication Summary Completed 10/11/2015 Appointment: María Elena Appiah WPtel: [address] [place] [address] [place] INJECTION 10/07/2015 Patient Education: Patient Medication Summary Completed 10/07/2015 Visit Plan: Check renal arterial doppler s and ECHO Change amlodopine to lotrel 5/20mg q HS Will need stress test as well Check CMP, uric acid, ESR 10/06/2015 Appointment: María Elena Appiah WPtel: [address] [place] [address] ACUTE ILLNESS 10/06/2015 Patient Education: Patient Medication Summary Completed 10/06/2015 Patient Education: [facility] - Saving AutoInj - Amlodipine Besylate - 18-64 - Dynamic Portal ID Completed 10/06/2015 Appointment: María Elena Appiah WPtel: [address] [place], [place] [id number] [place] FOLLOW UP 09/22/2015 Visit Plan: Cephalexin 500 mg PO bid Mery ly topical Mupirocin to lesions on left lateral neck and face Follow-up in one week. Sooner if symptoms worsen 09/14/2015 Appointment: June Flores WPtel: [address] [place], [place] [id number] ACUTE ILLNESS 09/14/2015 Patient Education: Patient Medication Summary Completed 09/14/2015 Visit Plan: Change bystolic to bedtime d osing and amlodopine to morning dosing Cryotherapy as above to AKs 09/07/2015 Appointment: María Elena Appiah WPtel: [address] [place], [place] [phone] 09/06 appointment made and confirmed ~ FOLLOW UP 09/07/2015 Patient Education: Patient Medication Summary Completed 09/07/2015 Visit Plan: Increase bystolic back to 20 mg daily but will split and take 10mg in AM and 10mg in PM Stress Reducers 08/18/2015 Appointment: María Elena Appiah WPtel: [address] [place], [place] [phone] 08/17/15 appt confirmed cn ACUTE ILLNESS 08/18 Patient Education: Patient Medication Summary Completed 08/18/2015 Appointment: María Elena Appiah WPtel: [address] [place], [place] [phone] BP CHECK 07/07/2015 Patient Education: Patient Medication Summary Completed 07/07/2015 Appointment: María Elena Appiah WPtel: [address] [place], [place] [phone] BP CHECK 06/24/2015 Patient Education: Patient Medication Summary Completed 06/24/2015 Appointment: María Elena Appiah WPtel: [address] [place] [address] BP CHECK 06/21/2015 Patient Education: Patient Medication Summary Completed 06/21/2015 Visit Plan: Lab discussed Continue curre nt meds and lifestyle modification Recheck lab in 6mos 06/16/2015 Appointment: María Elena Appiah WPtel: [address] [place] [address] 06/15 confirmed FOLLOW UP 06/16/2015 Patient Education: Patient Medication Summary Completed 06/16/2015 Patient Education: Patient Medication Summary Completed 06/15/2015 Visit Plan: Increase cymbalta to 60mg q HS Keep clonidine at current dose Recheck 2weeks Change xanax to klonopin 06/02/2015 Appointment: María Elena Appiah WPtel: [address] [place] [address] 06/02 lm FOLLOW UP 06/02/2015 Patient Education: Patient Medication Summary Completed 06/02/2015 Appointment: María Elena Appiah WPtel: [address] [place] [address] ACUTE ILLNESS 05/24/2015 Visit Plan: Increase clonidine to 0.2mg q HS Add cymbalta 30mg q HS Recheck 2weeks Stress Reducers Check fasting lab Discussed sleep study 05/20/2015 Appointment: María Elena Appiah WPtel: [address] [place] [address] ACUTE ILLNESS 05/20/2015 Patient Education: Patient Medication Summary Completed 05/20/2015 Patient Education: [facility] - Saving AutoInj - Cymbalta - 18-64 - Dynamic Portal ID Completed 05/20/2015 Appointment: María Elena Appiah WPtel: [address] [place] [address] BP CHECK 05/19/2015 Patient Education: Patient Medication Summary Completed 05/19/2015 Visit Plan: Topical Bactroban alternatin g with topical betamethasone Recheck 2weeks 05/10/2015 Appointment: María Elena Appiah WPtel: [address] [place] [address] 05/07 vm cn...05/07 appt confirmed OFFICE SURGER Y 05/10/2015 Patient Education: Patient Medication Summary Completed 05/10/2015 Referral: Patrick Chandler WPtel: [place] [address] Referral Initiated 05/04/2015 Visit Plan: Saline nasal flushes prn. Ty lenol/Motrin prn headache. Notify if persists/symptoms worsening. Depomedrol 40mg IM today 03/16/2015 Appointment: María Elena Appiah WPtel: [address] [place] [address] ACUTE ILLNESS 03/16/2015 Patient Education: Patient Medication Summary Completed 03/16/2015 Appointment: María Elena Appiah WPtel: [address] [place] [address] ER Follow UP 03/09/2015 Visit Plan: Cryotherapy to lesions as ab ove 10/27/2014 Appointment: María Elena Appiah WPtel: [address] [place] [address] OFFICE SURGERY 10/27/2014 Patient Education: Patient Medication Summary Completed 10/27/2014 Appointment: June Flores WPtel: [address] [place] [address] ACUTE ILLNESS 09/11/2014 Patient Education: Patient Medication Summary Completed 09/11/2014 Visit Plan: Lab discussed Lipitor 10mg d aily Coenzyme Q-10 400mg daily Vitamin D3 5000u daily Recheck lipids with LFTs in 3mos then fwup 08/31/2014 Appointment: María Elena Appiah WPtel: [address] [place] [address] 08/28 voicemail FOLLOW UP 08/31/2014 Patient Education: Patient Medication Summary Completed 08/31/2014 Appointment: María Elena Appiah WPtel: [address] [place], [place] [id number] 08/27/2014 Appointment: María Elena Appiah WPtel: [address] [place], [place] [id number] 08/27/2014 Patient Education: Patient Medication Summary Completed 08/27/2014 Appointment: María Elena Appiah WPtel: [address] [place] [address] ACUTE ILLNESS 07/23/2014 Appointment: María Elena Appiah WPtel: [address] [place] [address] ACUTE ILLNESS 07/21/2014 Patient Education: Patient Medication Summary Completed 07/21/2014 Visit Plan: Kenalog 40mg IM today Contin ue narendra and singulair Add Flonase 07/15/2014 Appointment: María Elena Appiah WPtel: [address] [place] [address] ACUTE ILLNESS 07/15/2014 Appointment: María Elena Appiahtel: [address] [place] [address] ACUTE ILLNESS 07/15/2014 Patient Education: Patient Medication Summary Completed 07/15/2014 Visit Plan: Will do metolazone 2.5mg prn with 6 potassium and see if causes as severe cramping Trial of of seroquel XR 50mg q PM with evening meal and let us know how works 05/18/2014 Appointment: María Elena Appiah WPtel: [address] [place], [place] [id number] 05/15 left message FOLLOW UP 05/18/2014 Patient Education: Patient Medication Summary Completed 05/18/2014 Appointment: María Elena Appiahtel: [address] [place], [place] [phone] 05/14/2014 Patient Education: Patient Medication Summary Completed 05/14/2014 Appointment: María Elena Appiah WPtel: [address] [place], [place] [phone] [place] INJECTION 04/22/2014 Visit Plan: Tisha and Miranda today a nd finish abx given from urgent care 04/21/2014 Appointment: María Elena Appiah WPtel: [address] [place] [address] [place] INJECTION 04/21/2014 Patient Education: Patient Medication Summary Completed 04/21/2014 Appointment: June Flores WPtel: [address] [place] [address] ACUTE ILLNESS 03/04/2014 Patient Education: Patient Medication Summary Completed 03/04/2014 Appointment: María Elena Appiah WPtel: [address] [place] [address] [place] INJECTION 02/27/2014 Patient Education: Patient Medication Summary Completed 02/27/2014 Visit Plan: Cryotherapy as above to all lesions Patient wants to try no meds for insomnia for a while and see how goes 01/13/2014 Appointment: María Elena Appiah WPtel: [address] [place] [address] OFFICE SURGERY 01/13/2014 Patient Education: Patient Medication Summary Completed 01/13/2014 Visit Plan: Stop Melatonin Stop Soma Tri al of trazadone 75mg q HS See ENT for possible tubes as has had chronic ETD and serous otitis media with numerous steroids 12/24/2013 Appointment: María Elena Appiah WPtel: [address] [place], [place] [phone] ACUTE ILLNESS 12/24/2013 Patient Education: Patient Medication Summary Completed 12/24/2013 Visit Plan: Saline nasal flushes prn. Ty lenol/Motrin prn headache. Notify if persists/symptoms worsening. 11/12/2013 Appointment: María Elena Appiah WPtel: [address] [place] [address] ACUTE ILLNESS 11/12/2013 Patient Education: Patient Medication Summary Completed 11/12/2013 Appointment: María Elena Appiah WPtel: [address] [place] [address] ACUTE ILLNESS 10/21/2013 Patient Education: Patient Medication Summary Completed 10/21/2013 Visit Plan: Sleep hygiene and sleep rout ine Melatonin 10mg q HS Support stockings and observe 09/22/2013 Appointment: María Elena Appiah WPtel: [address] [place] [address] ACUTE ILLNESS 09/22/2013 Patient Education: Patient Medication Summary Completed 09/22/2013 Appointment: June Flores WPtel: [address] [place] [address] ACUTE ILLNESS 08/27/2013 Patient Education: Patient Medication Summary Completed 08/27/2013 Visit Plan: Proceed with CT scan of head /neck Proceed with occipital nerve injections Butrans 20mcg patch weekly until can get into see Dr. Mcdonough for injections 08/04/2013 Appointment: María Elena Appiah WPtel: [address] [place] [address] FOLLOW UP 08/04/2013 Patient Education: Patient Medication Summary Completed 08/04/2013 Visit Plan: OMT done Daily neck stretche s, moist heat Increase Celebrex to 200mg BID Add flexeril 07/23/2013 Appointment: María Elena Appiah WPtel: [address] [place] [address] 07/22 voicemail FOLLOW UP 07/23/2013 Patient Education: Patient Medication Summary Completed 07/23/2013 Appointment: María Elena Appiah WPtel: [address] [place] [address] ACUTE ILLNESS 06/23/2013 Patient Education: Patient Medication Summary Completed 06/23/2013 Appointment: María Elena Appiah WPtel: [address] [place] [address] ACUTE ILLNESS 05/26/2013 Patient Education: Patient Medication Summary Completed 05/26/2013 Visit Plan: Decrease clonidine to 0.1mg TID If BP remains stable consider decreasing amlodopine Prednisone for 5 days BP check in 1mo 04/16/2013 Appointment: María Elena Appiah WPtel: [address] [place] [address] 04/14 pt called and confirmed appt FOLLOW UP 04/16/2013 Patient Education: Patient Medication Summary Completed 04/16/2013 Appointment: María Elena Appiah WPtel: [address] [place] [address] ACUTE ILLNESS 03/05/2013 Patient Education: Patient Medication Summary Completed 03/05/2013 Visit Plan: Pt has MARIA ELENA on with Dr. Mcdonough Continue Butrans patch Refill Hydrocodone early tomorrow 12/23/2012 Appointment: María Elena Appiah WPtel: [address] [place] [address] FOLLOW UP 12/23/2012 Patient Education: Patient Medication Summary Completed 12/23/2012 Appointment: Lashawn Eckert WPtel: [address] [place] [address] ACUTE ILLNESS 12/16/2012 Patient Education: Patient Medication Summary Completed 12/16/2012 Visit Plan: Proceed with updated MRI of LS spine Continue gabapentin and add soma and diclofenac Will likely need to go for another epidural 12/09/2012 Appointment: María Elena Appiah WPtel: [address] [place] [address] ACUTE ILLNESS 12/09/2012 Patient Education: Patient Medication Summary Completed 12/09/2012 Visit Plan: Injection as above Finish me drol dose pack Chiropracter this afternoon 12/04/2012 Appointment: María Elena Appiah WPtel: [address] [place] [address] ACUTE ILLNESS 12/04/2012 Patient Education: Patient Medication Summary Completed 12/04/2012 Appointment: Mary Tillman WPtel: [address] [place], [place] [id number] FOLLOW UP 11/22/2012 Patient Education: Patient Medication Summary Completed 11/22/2012 Appointment: María Elena Appiah WPtel: [address] [place], [place] [phone] ACUTE ILLNESS 11/21/2012 Patient Education: Patient Medication Summary Completed 11/21/2012 Appointment: María Elena Appiah WPtel: [address] [place] [address] BP CHECK 11/07/2012 Patient Education: Patient Medication [...] re-check. 10/29/2012 Appointment: Lashawn Eckert WPtel: [address] [place] [address] ACUTE ILLNESS 10/29/2012 Patient Education: Patient Medication Summary Completed 10/29/2012 Appointment: María Elena Appiah WPtel: [address] [place], [place] [id number] ACUTE ILLNESS 10/14/2012 Patient Education: Patient Medication Summary Completed 10/14/2012 Appointment: María Elena Appiah WPtel: [address] [place], [place] [phone] 09/27/2012 Patient Education: Patient Medication Summary Completed 09/27/2012 Appointment: María Elena Appiah WPtel: [address] [place], [place] [phone] ACUTE ILLNESS 09/25/2012 Patient Education: Patient Medication Summary Completed 09/25/2012 Appointment: María Elena Appiah WPtel: [address] [place], [place] [phone] BP CHECK 09/24/2012 Appointment: María Elena Appiah WPtel: [address] [place], [place] [address] ACUTE ILLNESS 08/29/2012 Patient Education: Patient Medication Summary Completed 08/29/2012 Visit Plan: Cryotherapy as above See Karlos m for right ear lesion--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 ACUTE ILLNESS 05/06/2012 Patient Education: Patient Medication Summary Completed 05/06/2012 Visit Plan: Pt wants to hold on any furt her sleep medications 04/03/2012 Appointment: María Elena Appiah WPtel: [address] [place], [place] [id number] FOLLOW UP 04/03/2012 Patient Education: Patient Medication Summary Completed 04/03/2012 Appointment: María Elena Appiah WPtel: [address] [place], [place] [phone] FOLLOW UP 03/19/2012 Patient Education: Patient Medication Summary Completed 03/19/2012 Appointment: María Elena Appiah WPtel: [address] [place], [place] [phone] BP CHECK 02/22/2012 Patient Education: Patient Medication Summary Completed 02/22/2012 Appointment: María Elena Appiah WPtel: [address] [place], [place] [phone] [place] BP CHECK 02/21/2012 Patient Education: Patient Medication Summary Completed 02/21/2012 Visit Plan: Doxycycline and bactroban fo r foot Supportive care on ankles and knees Add norvasc for BP 02/20/2012 Appointment: María Elena Appiahtel: [address] [place] [address] ER Follow UP 02/20/2012 Patient Education: Patient Medication Summary Completed 02/20/2012 Appointment: María Elena Appiahtel: [address] [place] [address] ACUTE ILLNESS 01/30/2012 Patient Education: Patient Medication Summary Completed 01/30/2012 Appointment: María Elena Appiahtel: [address] [place] [address] ACUTE ILLNESS 01/24/2012 Patient Education: Patient Medication Summary Completed 01/24/2012 Visit Plan: Daily back stretches, moist heat, Biofreeze prn OMT done 01/10/2012 Appointment: María Elena Appiah WPtel: [address] [place] [address] ACUTE ILLNESS 01/10/2012 Patient Education: Patient Medication Summary Completed 01/10/2012 Appointment: María Elena Appiah WPtel: [address] [place] [address] [place] FOLLOW UP 12/11/2011 Patient Education: Patient Medication Summary Completed 12/11/2011 Appointment: María Elena Appiahtel: [address] [place] [address] ACUTE ILLNESS 11/09/2011 Patient Education: Patient Medication Summary Completed 11/09/2011 Appointment: María Elena Appiahtel: [address] [place] [address] ACUTE ILLNESS 09/13/2011 Patient Education: Patient Medication Summary Completed 09/13/2011 Visit Plan: Check CBC, TSH, Free T4, CMP , ESR, Vit D, B12 now Start Prednisone today 08/31/2011 Appointment: María Elena Appiahtel: [address] [place] [address] ACUTE ILLNESS 08/31/2011 Patient Education: Patient Medication Summary Completed 08/31/2011 Appointment: María Elena Appiah WPtel: [address] [place], [place] [phone] [place] INJECTION 07/20/2011 Patient Education: Patient Medication Summary Completed 07/20/2011 Visit Plan: Continue current meds Monite r BP Cont stretches from PT 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 07/06/2011 Appointment: María Elena Appiah WPtel: [address] [place] [address] FOLLOW UP 07/06/2011 Patient Education: Patient Medication Summary Completed 07/06/2011 Appointment: María Elena Appiahtel: [address] [place] [address] BP CHECK 06/06/2011 Patient Education: Patient Medication Summary Completed 06/06/2011 Visit Plan: Add Bystolic at 2.5mg QAM Ad d Robaxin 750mg 2 po q HS BP check in 2wks 05/22/2011 Appointment: María Elena Appiahtel: [address] [place] [address] FOLLOW UP 05/22/2011 Patient Education: Patient Medication Summary Completed 05/22/2011 Appointment: María Elena Appiahtel: [address] [place] [address] ER Follow UP 05/09/2011 Patient Education: Patient Medication Summary Completed 05/09/2011 Appointment: María Elena Appiahtel: [address] [place] [address] FOLLOW UP 02/22/2011 Visit Plan: Rx written for Hydrocodone 1 0/325mg #240 See Ortho 02/14/2011 Appointment: María Elena Appiahtel: [address] [place] [address] OMT 02/14/2011 Patient Education: Patient Medication Summary [...] work. 02/03/2011 Appointment: Lashawn Eckert WPtel: [address] [place] [address] ACUTE ILLNESS 02/03/2011 Patient Education: Patient Medication Summary Completed 02/03/2011 Visit Plan: OMT done Cont daily stretche s 01/31/2011 Appointment: María Elena Appiah WPtel: [address] [place] [address] ACUTE ILLNESS 01/31/2011 Patient Education: Patient Medication Summary Completed 01/31/2011 Visit Plan: Continue pain meds OMT done Proceed with PT No work this summer01/25/2011 Appointment: María Elena Appiah WPtel: [address] [place] [address] ACUTE ILLNESS 01/25/2011 Patient Education: Patient Medication Summary Completed 01/25/2011 Visit Plan: Start PT Long discussion abo ut getting pain meds from only us and can only have max of 4grams of tylenol per day Change to Hydrocodone 10/325mg 1- 2 po TID prn pain--#180 called to Radha 01/18/2011 Appointment: María Elena Appiah WPtel: [address] [place] [address] FOLLOW UP 01/18/2011 Patient Education: Patient Medication Summary Completed 01/18/2011 Visit Plan: Daily back stretches, moist heat, Biofreeze prn 11/29/2010 Appointment: María Elena Appiahtel: [address] [place] [address] ER Follow UP 11/29/2010 Patient Education: Patient Medication Summary Completed 11/29/2010 Visit Plan: Saline nasal flushes prn. Ty lenol/Motrin prn headache. Notify if persists/symptoms worsening. Finish augmentin Add Medrol Dose Pack 10/10/2010 Appointment: María Elena Appiah WPtel: [address] [place] [address] ACUTE ILLNESS 10/10/2010 Patient Education: Patient Medication Summary Completed 10/10/2010 Visit Plan: Cryotherapy x3 to multiple l esions on both forearms 07/19/2010 Appointment: María Elena Appiah WPtel: [address] [place] [address] OFFICE SURGERY 07/19/2010 Patient Education: Patient Medication Summary Completed 07/19/2010 Appointment: María Elena Appiah WPtel: [address] [place] [address] BP CHECK 07/06/2010 Patient Education: Patient Medication Summary Completed 07/06/2010 Appointment: María Elena Appiah WPtel: [address] [place] [address] BP CHECK 06/30/2010 Patient Education: Patient Medication Summary Completed 06/30/2010 Appointment: María Elena Appiah WPtel: [address] [place] [address] BP CHECK 06/20/2010 Patient Education: Patient Medication Summary Completed 06/20/2010 Visit Plan: Change Diovan to Exforge 160 /5mg QD OMT done to thoracics BP check in 2wks 06/07/2010 Appointment: María Elena Appiah WPtel: [address] [place] [address] FOLLOW UP 06/07/2010 Patient Education: Patient Medication Summary Completed 06/07/2010 Appointment: María Elena Appiahtel: [address] [place] [address] BP CHECK 06/03/2010 Patient Education: Patient Medication Summary Completed 06/03/2010 Appointment: María Elena Appiah WPtel: [address] [place] [address] BP CHECK 06/01/2010 Patient Education: Patient Medication Summary Completed 06/01/2010 Visit Plan: Irritated skin tags to left neck x2 excised at base with scissors and base cauterized 05/30/2010 Appointment: María Elena Appiah WPtel: [address] [place] [address] OFFICE SURGERY 05/30/2010 Patient Education: Patient Medication Summary Completed 05/30/2010 Visit Plan: Saline nasal flushes prn. Ty lenol/Motrin prn headache. Notify if persists/symptoms worsening. Restart Nasonex Has allergy testing set for May 25 04/27/2010 Appointment: María Elena Appiahtel: [address] [place] [address] ACUTE ILLNESS 04/27/2010 Patient Education: Patient Medication Summary Completed 04/27/2010 Visit Plan: Saline nasal flushes prn. Ty lenol/Motrin prn headache. Notify if persists/symptoms worsening. Omnaris BID plus injections 04/05/2010 Appointment: María Elena Appiah WPtel: [address] [place] [address] ACUTE ILLNESS 04/05/2010 Patient Education: Patient Medication Summary Completed 04/05/2010 Visit Plan: Saline nasal flushes prn. Ty lenol/Motrin prn headache. Notify if persists/symptoms worsening. 03/09/2010 Appointment: María Elena Appiah WPtel: [address] [place] [address] ACUTE ILLNESS 03/09/2010 Patient Education: Patient Medication Summary Completed 03/09/2010 Visit Plan: Cont Clonidine as is Cont Pr emarin Fwup with surgery as scheduled 03/03/2010 Appointment: María Elena Appiah WPtel: [address] [place], [place] [phone] FOLLOW UP 03/03/2010 Patient Education: Patient Medication Summary Completed 03/03/2010 Visit Plan: Check Pelvic US now Chelsey Sal C vs Hysterectomy 01/17/2010 Appointment: María Elena Appiah WPtel: [address] [place], [place] [phone] ACUTE ILLNESS 01/17/2010 Patient Education: Patient Medication Summary Completed 01/17/2010 Visit Plan: Check fasting lab and schedu le Mammogram 2gm Na Diet Trial of Ambien 10mg qhs Fwup pending lab results 12/27/2009 Appointment: María Elena Appiah WPtel: [address] [place], [place] [phone] [place] ESTABLISHED PATIENT 12/27/2009 Patient Education: Patient Medication Summary Completed 12/27/2009 Referral: Canelo Overton WPtel: [address] [id number] [place] Referral Initiated Referral: Philipp Flores WPtel: [address] [id number] [place] Referral Appointment Requested Instructions Comment . [...]
--- OUTSIDE RECORDS SUMMARY | 2020-03-13 06:50 | XMS REPORT | CCD ---
Author Author Gale Appiah D.O. Organization [facility] Address [address] [place] [id number] Phone Care Team Providers Care Senior Pensions Administrator Name Role Phone María Elena Appiah D.O., PP Unavailable CCM Unavailable Summary Purpose Interface Exchange Family History Family History data not found Social History Social History Element Codes Description Effective Dates Tobacco history SNOMED CT: 320733717 Never smoker 05/22/2011 Allergies, Adverse Reactions, Alerts [...] Fill Instructions gabapentin 300 mg capsule RxNorm: 461501 TAKE ONE CAPSU LE BY MOUTH EVERY NIGHT AT BEDTIME 09/19/2019 No Stop Date Active baclofen 10 mg tablet RxNorm: 143222 TAKE ONE TABLET BY MOUTH THREE TIMES A DAY NEEDED 09/19/2019 No Stop Date Active Klor-Con 8 mEq tablet,extended release RxNorm: 733843 T FARRUKH ONE TABLET BY MOUTH TWICE A DAY 1 Tablet(s) Oral two times a day 09/19/2019 10/19/2019 Act darion duloxetine 60 mg capsule,delayed release RxNorm: 044886 TAKE ONE CAPSULE BY MOUTH DAILY 09/11/2019 No Stop Date Active Lipitor 10 mg tablet RxNorm: 930541 TAKE ONE TABLET BY MOUTH AT BEDTIME 09/11/2019 No Stop Date Active lisinopril 20 mg tablet RxNorm: 034205 TAKE ONE TABLET BY MOUTH DAILY .... THIS REPLACE 10MG TABLETS 09/11/2019 No Stop Date Active triamterene 75 mg-hydrochlorothiazide 50 mg tablet RxNorm: 3 02352 TAKE ONE TABLET BY MOUTH DAILY 09/11/2019 No Stop Date Active allopurinol 300 mg tablet RxNorm: 453310 TAKE ONE TABLET BY LOPEZ TH DAILY 09/11/2019 No Stop Date Active celecoxib 200 mg capsule RxNorm: 228102 TAKE ONE CAPSUL E BY MOUTH TWICE A DAY NEEDED FOR PAIN 09/11/2019 No Stop Date Active clonidine HCl 0.1 mg tablet RxNorm: 192876 TAKE ONE TAB LET BY MOUTH FOUR TIMES A DAY 09/11/2019 No Stop Date Active doxepin 25 mg capsule RxNorm: 6327480 1 Capsule(s) Oral every night at bedtime as needed for sleep 08/21/2019 11/18/2019 Active hydrocodone 10 mg-acetaminophen 325 mg tablet RxNorm: 928990 1-2 Tablet(s) PO TID 08/12/2019 No Stop Date Active as needed for pa in - Previous quantity #240, will start dosing for #180 in April 2011 per Doctor Td. Medrol (Dustin) 4 mg tablets in a dose pack RxNorm: 123609 Tablet(s) Oral As Directed 07/21/2019 No Stop Date Active Premarin 1.25 mg tablet RxNorm: 759000 1 Tablet(s) Oral QD 07/02/20 19 03/28/2020 Active hydrocodone 10 mg-acetaminophen 325 mg tablet RxNorm: 128546 1-2 Tablet(s) PO TID 07/01/2019 08/11/2019 Inactive as needed for pa in - Previous quantity #240, will start dosing for #180 in April 2011 per Doctor Td. gabapentin 300 mg capsule RxNorm: 755755 1 Capsule(s) PO QHS 201809/18/2019 Inactive celecoxib 200 mg capsule RxNorm: 501882 1 Capsule(s) Or al two times a day as needed for pain 06/27/2019 06/27/2019 Inactive Singulair 10 mg tablet RxNorm: 160083 TAKE ONE TABLET BY MOUTH JOSÉ Y 06/24/2019 No Stop Date Active furosemide 40 mg tablet RxNorm: 777300 TAKE ONE TABLET BY MOUTH EVERY MORNING NEEDED FOR EDEMA . TAKE WITH POTASSIUM 06/24/2019 No Stop Date Active doxepin 25 mg capsule RxNorm: 3746333 TAKE ONE CAPSULE B Y MOUTH EVERY NIGHT AT BEDTIME NEEDED FOR SLEEP 06/24/2019 08/20/2019 Inactive lisinopril 20 mg tablet RxNorm: 584976 TAKE ONE TABLET BY MOUTH DAILY .... THIS REPLACE 10MG TABLETS 06/24/2019 09/10/2019 Inactive nystatin-triamcinolone 100,000 unit/g-0.1 % topical cream Rx Norm: 8669128 1 Application Topical two times a day 06/12/2019 06/19/2019 Inactive apply BID for 1 week nystatin-triamcinolone 100,000 unit/g-0.1 % topical cream Rx Norm: 7740644 1 Application Topical two times a day 06/12/2019 06/11/2019 Inactive apply BID for 1 week hydrocodone 10 mg-acetaminophen 325 mg tablet RxNorm: 175946 1-2 Tablet(s) PO QID as needed for pain MUST LAST 30 DAYS 05/28/2019 06/26/2019 Inactiv e (Response to an electronic controlled substance refill request - RxReferenceNumber: [id number]) baclofen 20 mg tablet RxNorm: 241463 1 Tablet(s) PO TID as needed for muscle spasm 05/19/2019 05/27/2019 Inactive gabapentin 300 mg capsule RxNorm: 053260 1 Capsule(s) PO QHS 201805/27/2019 Inactive lisinopril 20 mg tablet RxNorm: 890093 1 Tablet(s) PO Q D TAKE ONE TABLET BY MOUTH DAILY, REPLACES 10 MG DOSE 05/19/2019 06/23/2019 Inactive doxepin 25 mg capsule RxNorm: 1999535 TAKE ONE CAPSULE B Y MOUTH EVERY NIGHT AT BEDTIME NEEDED FOR SLEEP 05/16/2019 06/14/2019 Inactive lisinopril 20 mg tablet RxNorm: 532552 TAKE ONE TABLET BY MOUTH DAILY, REPLACES 10 MG DOSE 05/16/2019 05/18/2019 Inactive Singulair 10 mg tablet RxNorm: 546446 TAKE ONE TABLET BY MOUTH JOSÉ Y 05/16/2019 06/14/2019 Inactive gabapentin 300 mg capsule RxNorm: 082326 1 Capsule(s) PO QHS 201805/04/2019 Inactive estropipate 1.5 mg tablet RxNorm: 099354 1 Tablet(s) PO QD 05/05/2005/27/2019 Inactive estropipate 1.5 mg tablet RxNorm: 382324 1 Tablet(s) PO QD 05/05/2005/04/2019 Inactive gabapentin 300 mg capsule RxNorm: 391710 1 Capsule(s) PO QHS 201805/18/2019 Inactive hydrocodone 10 mg-acetaminophen 325 mg tablet RxNorm: 437000 1-2 Tablet(s) PO QID as needed for pain MUST LAST 30 DAYS 04/25/2019 05/24/2019 Inactiv e (Response to an electronic controlled substance refill request - RxReferenceNumber: [id number]) metoprolol tartrate 100 mg tablet RxNorm: 127396 TAKE O NE TABLET BY MOUTH TWICE A DAY 04/24/2019 06/22/2019 Inactive cyclobenzaprine 10 mg tablet RxNorm: 667305 TAKE ONE TA BLET BY MOUTH THREE TIMES A DAY NEEDED FOR MUSCLE SPASMS 04/24/2019 05/18/2019 Inactive Lyrica 75 mg capsule RxNorm: 660979 1 Capsule(s) PO QHS 03/25/2019 Inactive duloxetine 60 mg capsule,delayed release RxNorm: 932582 TAKE ONE CAPSULE BY MOUTH DAILY 03/21/2019 05/19/2019 Inactive triamterene 75 mg-hydrochlorothiazide 50 mg tablet RxNorm: 3 43310 TAKE ONE TABLET BY MOUTH DAILY 03/21/2019 05/19/2019 Inactive Klor-Con 8 mEq tablet,extended release RxNorm: 663806 T FARRUKH ONE TABLET BY MOUTH TWICE A DAY 03/21/2019 09/18/2019 Inactive Lipitor 10 mg tablet RxNorm: 456721 TAKE ONE TABLET BY MOUTH AT BEDTIME 03/21/2019 09/10/2019 Inactive clonidine HCl 0.1 mg tablet RxNorm: 433538 TAKE ONE TAB LET BY MOUTH FOUR TIMES A DAY 03/21/2019 05/19/2019 Inactive allopurinol 300 mg tablet RxNorm: 895248 TAKE ONE TABLET BY LOPEZ TH DAILY 03/21/2019 05/19/2019 Inactive hydrocodone 10 mg-acetaminophen 325 mg tablet RxNorm: 454162 1-2 Tablet(s) PO QID as needed for pain MUST LAST 30 DAYS 02/28/2019 03/29/2019 Inactiv e (Response to an electronic controlled substance refill request - RxReferenceNumber: [id number]) furosemide 40 mg tablet RxNorm: 745088 TAKE ONE TABLET BY MOUTH EVERY MORNING NEEDED FOR EDEMA . TAKE WITH POTASSIUM 02/21/2019 03/22/2019 Inactive cyclobenzaprine 10 mg tablet RxNorm: 241344 TAKE ONE TA BLET BY MOUTH THREE TIMES A DAY NEEDED FOR MUSCLE SPASMS 02/21/2019 04/21/2019 Inactive lisinopril 20 mg tablet RxNorm: 724698 TAKE ONE TABLET BY MOUTH DAILY, REPLACES 10 MG DOSE 02/21/2019 05/15/2019 Inactive doxepin 25 mg capsule RxNorm: 9051827 TAKE ONE CAPSULE B Y MOUTH EVERY NIGHT AT BEDTIME NEEDED FOR SLEEP 02/21/2019 05/15/2019 Inactive nystatin 100,000 unit/gram topical cream RxNorm: 053819 APPLY TO AFFECTED AREA(S) TWO TIMES A DAY 02/21/2019 03/22/2019 Inactive estradiol 1 mg tablet RxNorm: 285413 2 Tablet(s) PO QD replaces premarin 01/22/2019 05/04/2019 Inactive lisinopril 20 mg tablet RxNorm: 802047 TAKE ONE TABLET BY MOUTH DAILY, REPLACES 10 MG DOSE 01/20/2019 02/18/2019 Inactive cyclobenzaprine 10 mg tablet RxNorm: 209541 TAKE ONE TA BLET BY MOUTH THREE TIMES A DAY NEEDED FOR MUSCLE SPASMS 01/20/2019 02/18/2019 Inactive metoprolol tartrate 100 mg tablet RxNorm: 140138 TAKE O NE TABLET BY MOUTH TWICE A DAY 01/20/2019 02/18/2019 Inactive cyclobenzaprine 10 mg tablet RxNorm: 257329 TAKE ONE TA BLET BY MOUTH THREE TIMES A DAY NEEDED FOR MUSCLE SPASMS 12/19/2018 01/17/2019 Inactive lisinopril 20 mg tablet RxNorm: 848114 TAKE ONE TABLET BY MOUTH DAILY, REPLACES 10 MG DOSE 12/19/2018 01/17/2019 Inactive duloxetine 60 mg capsule,delayed release RxNorm: 372149 TAKE ONE CAPSULE BY MOUTH DAILY 12/19/2018 01/17/2019 Inactive Lipitor 10 mg tablet RxNorm: 944370 TAKE ONE TABLET BY MOUTH AT BEDTIME 12/19/2018 01/17/2019 Inactive cyclobenzaprine 10 mg tablet RxNorm: 813846 1 Tablet(s) PO TID as needed for muscle spasm 11/19/2018 12/18/2018 Inactive Singulair 10 mg tablet RxNorm: 357411 1 Tablet(s) PO QD 11/19/2018 Inactive lisinopril 20 mg tablet RxNorm: 205023 TAKE ONE TABLET BY MOUTH DAILY, REPLACES 10 MG DOSE 11/15/2018 12/18/2018 Inactive hydrocodone 10 mg-acetaminophen 325 mg tablet RxNorm: 076566 1-2 Tablet(s) PO QID as needed for pain MUST LAST 30 DAYS 11/13/2018 12/12/2018 Inactiv e (Response to an electronic controlled substance refill request - RxReferenceNumber: [id number]) nystatin 100,000 unit/gram topical cream RxNorm: 108849 APPLY TO AFFECTED AREA(S) TWO TIMES A DAY 10/23/2018 11/06/2018 Inactive lisinopril 20 mg tablet RxNorm: 634647 1 Tablet(s) PO QD replac es 10mg dose 10/18/2018 11/14/2018 Inactive hydrocodone 10 mg-acetaminophen 325 mg tablet RxNorm: 448030 1-2 Tablet(s) QID as needed for pain MUST LAST 30 DAYS 10/08/2018 11/06/2018 Inactive (Response to an electronic controlled substance refill request - RxReferenceNumber: [id number]) lisinopril 10 mg tablet RxNorm: 150261 1 Tablet(s) PO QD 10/03/2018 0 01/21/2019 Inactive Celebrex 200 mg capsule RxNorm: 697834 TAKE ONE CAPSULE BY MOUT H TWICE A DAY 09/30/2018 05/04/2019 Inactive cyclobenzaprine 10 mg tablet RxNorm: 732341 TAKE ONE TA BLET BY MOUTH THREE TIMES A DAY NEEDED FOR MUSCLE SPASMS 09/30/2018 11/18/2018 Inactive doxepin 25 mg capsule RxNorm: 6843061 TAKE ONE CAPSULE B Y MOUTH EVERY NIGHT AT BEDTIME NEEDED 09/05/2018 10/16/2018 Inactive omeprazole 40 mg capsule,delayed release RxNorm: 482109 TAKE ONE CAPSULE BY MOUTH DAILY 09/05/2018 01/21/2019 Inactive furosemide 40 mg tablet RxNorm: 890653 TAKE ONE TABLET BY MOUTH EVERY MORNING NEEDED FOR EDEMA . TAKE WITH POTASSIUM 09/05/2018 11/03/2018 Inactive phentermine 37.5 mg tablet RxNorm: 965170 1 Tablet(s) PO QAM 201701/21/2019 Inactive doxepin 25 mg capsule RxNorm: 3909863 1 Capsule(s) PO QH S as needed for sleep TAKE ONE CAPSULE BY MOUTH EVERY NIGHT AT BEDTIME NEEDED 08/27/2018 09/04/2018 Inactive Keflex 500 mg capsule RxNorm: 482834 1 Capsule(s) PO TID 08/09/2018 1 10/19/2017 Inactive Diflucan 100 mg tablet RxNorm: 192337 1 Tablet(s) PO QD 08/09/2018 Inactive Premarin 1.25 mg tablet RxNorm: 476213 2 Tablet(s) PO QD 08/09/2018 0 05/04/2019 Inactive Zofran ODT 4 mg disintegrating tablet RxNorm: 738004 1 Tablet(s) PO Q4H as needed for nausea 08/09/2018 01/21/2019 Inactive metoprolol tartrate 100 mg tablet RxNorm: 430292 TAKE O NE TABLET BY MOUTH TWICE A DAY 2018 10/04/2018 Inactive doxepin 25 mg capsule RxNorm: 9529155 TAKE ONE CAPSULE B Y MOUTH EVERY NIGHT AT BEDTIME NEEDED 2018 08/26/2018 Inactive cyclobenzaprine 10 mg tablet RxNorm: 081494 TAKE ONE TA BLET BY MOUTH THREE TIMES A DAY NEEDED FOR MUSCLE SPASMS 2018 09/29/2018 Inactive hydrocodone 10 mg-acetaminophen 325 mg tablet RxNorm: 039513 1-2 Tablet(s) QID as needed for pain MUST LAST 30 DAYS 07/29/2018 08/27/2018 Inactive (Response to an electronic controlled substance refill request - RxReferenceNumber: [id number]) nystatin 100,000 unit/gram topical powder RxNorm: 366848 Applic ation TOP BID 07/22/2018 08/04/2018 Inactive doxepin 25 mg capsule RxNorm: 9632873 1 Capsule(s) PO QHS as needed 07/22/2018 08/05/2018 Inactive triamterene 75 mg-hydrochlorothiazide 50 mg tablet RxNorm: 3 52591 TAKE ONE TABLET BY MOUTH DAILY 07/05/2018 10/02/2018 Inactive duloxetine 60 mg capsule,delayed release RxNorm: 537209 TAKE ONE CAPSULE BY MOUTH DAILY 07/05/2018 09/02/2018 Inactive Klor-Con 8 mEq tablet,extended release RxNorm: 000229 T FARRUKH ONE TABLET BY MOUTH TWICE A DAY 07/05/2018 10/02/2018 Inactive Lipitor 10 mg tablet RxNorm: 951999 TAKE ONE TABLET BY MOUTH AT BEDTIME 07/05/2018 09/02/2018 Inactive allopurinol 300 mg tablet RxNorm: 877180 TAKE ONE TABLET BY LOPEZ TH DAILY 07/05/2018 10/02/2018 Inactive clonidine HCl 0.1 mg tablet RxNorm: 100637 TAKE ONE TAB LET BY MOUTH FOUR TIMES A DAY 07/05/2018 10/02/2018 Inactive hydrocodone 10 mg-acetaminophen 325 mg tablet RxNorm: 081718 1-2 Tablet(s) QID as needed for pain MUST LAST 30 DAYS 06/28/2018 07/27/2018 Inactive (Response to an electronic controlled substance refill request - RxReferenceNumber: [id number]) MediHoney (calcium alginate-honey) 4" X 5" bandage RxNorm: 1 Application TOP QD 06/17/2018 06/26/2018 Inactive honey-hydrocolloid dressing 4" X 5" RxNorm: 1 Application TOP QD 06/17/2018 07/16/2018 Inactive furosemide 40 mg tablet RxNorm: 274495 TAKE ONE TABLET BY MOUTH EVERY MORNING NEEDED FOR EDEMA . TAKE WITH POTASSIUM 06/10/2018 07/09/2018 Inactive This is a refill request. hydrocodone 10 mg-acetaminophen 325 mg tablet RxNorm: 293605 1-2 Tablet(s) QID as needed for pain MUST LAST 30 DAYS 05/30/2018 06/27/2018 Inactive (Response to an electronic controlled substance refill request - RxReferenceNumber: [id number]) acyclovir 800 mg tablet RxNorm: 542178 1 Tablet(s) PO 5x day 201705/22/2018 Inactive Premarin 1.25 mg tablet RxNorm: 902367 1-2 Tablet(s) PO QD 05/15/20 18 07/13/2018 Inactive cyclobenzaprine 10 mg tablet RxNorm: 065064 1 Tablet(s) PO TID as needed for muscle spasm 05/09/2018 05/08/2018 Inactive Medrol (Dustin) 4 mg tablets in a dose pack RxNorm: 137890 Tablet(s) PO As Directed 05/02/2018 06/16/2018 Inactive hydrocodone 10 mg-acetaminophen 325 mg tablet RxNorm: 968240 1-2 Tablet(s) QID as needed for pain MUST LAST 30 DAYS 04/30/2018 05/29/2018 Inactive (Response to an electronic controlled substance refill request - RxReferenceNumber: [id number]) duloxetine 60 mg capsule,delayed release RxNorm: 351804 TAKE ONE CAPSULE BY MOUTH DAILY 04/16/2018 05/15/2018 Inactive Celebrex 200 mg capsule RxNorm: 605477 TAKE ONE CAPSULE BY MOUT H TWICE A DAY 04/16/2018 06/14/2018 Inactive Singulair 10 mg tablet RxNorm: 929808 TAKE ONE TABLET BY MOUTH JOSÉ Y 04/16/2018 11/19/2018 Inactive Lipitor 10 mg tablet RxNorm: 538485 TAKE ONE TABLET BY MOUTH AT BEDTIME 04/16/2018 05/15/2018 Inactive hydrocodone 10 mg-acetaminophen 325 mg tablet RxNorm: 684934 1-2 Tablet(s) QID as needed for pain MUST LAST 30 DAYS 03/29/2018 04/27/2018 Inactive (Response to an electronic controlled substance refill request - RxReferenceNumber: [id number]) cyclobenzaprine 10 mg tablet RxNorm: 636619 1 Tablet(s) PO TID as needed for muscle spasm 03/18/2018 05/09/2018 Inactive omeprazole 40 mg capsule,delayed release RxNorm: 082601 1 Capsu le(s) PO QD 02/26/2018 08/24/2018 Inactive hydrocodone 10 mg-acetaminophen 325 mg tablet RxNorm: 914872 1-2 Tablet(s) QID as needed for pain MUST LAST 30 DAYS 02/26/2018 03/27/2018 Inactive (Response to an electronic controlled substance refill request - RxReferenceNumber: [id number]) metoprolol tartrate 100 mg tablet RxNorm: 220879 1 Tablet(s) PO BID 02/18/2018 08/05/2018 Inactive Lyrica 75 mg capsule RxNorm: 273252 1 Capsule(s) PO QHS 01/30/2018 Inactive phentermine 37.5 mg tablet RxNorm: 719085 1 Tablet(s) PO QAM 201706/16/2018 Inactive hydrocodone 10 mg-acetaminophen 325 mg tablet RxNorm: 720509 1-2 Tablet(s) QID as needed for pain MUST LAST 30 DAYS 01/29/2018 02/25/2018 Inactive (Response to an electronic controlled substance refill request - RxReferenceNumber: [id number]) Klor-Con 8 mEq tablet,extended release RxNorm: 261122 1 Tablet( s) PO BID 01/14/2018 07/04/2018 Inactive allopurinol 300 mg tablet RxNorm: 332841 1 Tablet(s) PO QD 01/15/20 18 07/04/2018 Inactive Lipitor 10 mg tablet RxNorm: 258174 1 Tablet(s) PO QHS 01/14/201812/2017 Inactive triamterene 75 mg-hydrochlorothiazide 50 mg tablet RxNorm: 3 68555 1 Tablet(s) PO QD 01/14/2018 07/04/2018 Inactive hydrocodone 10 mg-acetaminophen 325 mg tablet RxNorm: 742915 1-2 Tablet(s) QID as needed for pain MUST LAST 30 DAYS 12/27/2017 01/25/2018 Inactive (Response to an electronic controlled substance refill request - RxReferenceNumber: [id number]) Onglyza 5 mg tablet RxNorm: 150383 1 Tablet(s) PO QD 12/18/201701/29 Inactive metformin 500 mg tablet RxNorm: 479199 1 Tablet(s) PO BID 12/11/2017 12/10/2017 Inactive metformin 500 mg tablet RxNorm: 319702 1 Tablet(s) PO BID 12/11/2017 12/17/2017 Inactive furosemide 40 mg tablet RxNorm: 792343 1 Tablet(s) PO Q AM prn edema--take with potassium 12/11/2017 06/08/2018 Inactive cyclobenzaprine 10 mg tablet RxNorm: 926762 1 Tablet(s) PO TID as needed for muscle spasm 12/11/2017 03/18/2018 Inactive hydrocodone 10 mg-acetaminophen 325 mg tablet RxNorm: 263316 1-2 Tablet(s) QID as needed for pain MUST LAST 30 DAYS 10/23/2017 11/21/2017 Inactive (Response to an electronic controlled substance refill request - RxReferenceNumber: [id number]) Lipitor 10 mg tablet RxNorm: 789545 1 Tablet(s) PO QHS 10/16/201703/2018 Inactive cyclobenzaprine 10 mg tablet RxNorm: 876548 1 Tablet(s) PO TID as needed for muscle spasm 10/09/2017 12/10/2017 Inactive hydroxyzine HCl 25 mg tablet RxNorm: 949165 1 Tablet(s) PO BID as needed for anxiety 09/20/2017 01/29/2018 Inactive Effexor XR 75 mg capsule,extended release RxNorm: 859586 1 Caps ule(s) PO QD 09/20/2017 01/29/2018 Inactive metoprolol tartrate 100 mg tablet RxNorm: 098149 1 Tablet(s) PO BID 08/20/2017 02/18/2018 Inactive baclofen 20 mg tablet RxNorm: 825836 1 Tablet(s) PO TID as needed for muscle spasm 08/20/2017 01/21/2019 Inactive clonidine HCl 0.1 mg tablet RxNorm: 310849 1 Tablet(s) PO QID 08/2005/16/2018 Inactive Seroquel 25 mg tablet RxNorm: 133422 1 Tablet(s) PO QHS 08/17/2017 Inactive Seroquel 25 mg tablet RxNorm: 069228 1 Tablet(s) PO QHS 08/17/2017 Inactive Diflucan 100 mg tablet RxNorm: 727529 TAKE ONE TABLET BY MOUTH JOSÉ Y 07/25/2017 08/07/2017 Inactive hydrocodone 10 mg-acetaminophen 325 mg tablet RxNorm: 802106 1-2 Tablet(s) QID as needed for pain MUST LAST 30 DAYS 07/19/2017 08/17/2017 Inactive (Response to an electronic controlled substance refill request - RxReferenceNumber: [id number]) clindamycin 300 mg capsule RxNorm: 581081 1 Capsule(s) PO TID 07/1907/28/2017 Inactive clotrimazole-betamethasone 1 %-0.05 % topical cream RxNorm: 036141 Application TOP BID to elbow rash 07/19/2017 06/16/2018 Inactive Singulair 10 mg tablet RxNorm: 224154 Tablet(s) TAKE ONE TABLET BY MOUTH DAILY 07/18/2017 04/13/2018 Inactive triamterene 75 mg-hydrochlorothiazide 50 mg tablet RxNorm: 3 14350 1 Tablet(s) PO QD 07/18/2017 01/14/2018 Inactive Celebrex 200 mg capsule RxNorm: 389187 Capsule(s) TAKE ONE CAPSULE BY MOUTH TWICE A DAY 07/18/2017 10/15/2017 Inactive hydrocodone 10 mg-acetaminophen 325 mg tablet RxNorm: 980031 1-2 Tablet(s) QID as needed for pain MUST LAST 30 DAYS 06/19/2017 07/18/2017 Inactive (Response to an electronic controlled substance refill request - RxReferenceNumber: [id number]) hydrocodone 10 mg-acetaminophen 325 mg tablet RxNorm: 808804 1-2 Tablet(s) QID as needed for pain MUST LAST 30 DAYS 06/19/2017 06/18/2017 Inactive (Response to an electronic controlled substance refill request - RxReferenceNumber: [id number]) baclofen 20 mg tablet RxNorm: 860355 1 Tablet(s) PO TID as needed for muscle spasm 06/18/2017 08/20/2017 Inactive Medrol (Dustin) 4 mg tablets in a dose pack RxNorm: 934776 Tablet(s) PO As Directed 06/05/2017 07/18/2017 Inactive omeprazole 40 mg capsule,delayed release RxNorm: 591807 1 Capsu le(s) PO QD 04/20/2017 10/16/2017 Inactive Premarin 1.25 mg tablet RxNorm: 265260 1-2 Tablet(s) PO QD 04/11/20 17 05/15/2018 Inactive duloxetine 60 mg capsule,delayed release RxNorm: 562584 1 Capsu le(s) PO QD 04/11/2017 09/19/2017 Inactive furosemide 40 mg tablet RxNorm: 760417 1 Tablet(s) PO Q AM prn edema--take with potassium 04/11/2017 12/11/2017 Inactive Klor-Con 8 mEq tablet,extended release RxNorm: 021408 1 Tablet( s) PO BID 04/11/2017 01/14/2018 Inactive Lipitor 10 mg tablet RxNorm: 335014 1 Tablet(s) PO QHS 04/11/201702/2018 Inactive amlodipine 5 mg-benazepril 20 mg capsule RxNorm: 594333 1 Capsu le(s) PO QD 04/11/2017 01/29/2018 Inactive allopurinol 300 mg tablet RxNorm: 072647 1 Tablet(s) PO QD 04/11/2001/14/2018 Inactive clonidine HCl 0.1 mg tablet RxNorm: 368763 1 Tablet(s) PO QID 04/0508/19/2017 Inactive baclofen 20 mg tablet RxNorm: 934504 1 Tablet(s) PO TID as needed for muscle spasm 04/02/2017 06/18/2017 Inactive Premarin 1.25 mg tablet RxNorm: 704846 1-2 Tablet(s) PO QD 03/20/20 17 04/10/2017 Inactive hydrocodone 10 mg-acetaminophen 325 mg tablet RxNorm: 405409 1-2 Tablet(s) QID as needed for pain MUST LAST 30 DAYS 03/14/2017 01/21/2019 Inactive (Response to an electronic controlled substance refill request - RxReferenceNumber: [id number]) metoprolol tartrate 100 mg tablet RxNorm: 782995 1 Tablet(s) PO BID 02/12/2017 08/20/2017 Inactive hydrocodone 10 mg-acetaminophen 325 mg tablet RxNorm: 238004 1-2 Tablet(s) QID as needed for pain MUST LAST 30 DAYS 02/08/2017 03/09/2017 Inactive (Response to an electronic controlled substance refill request - RxReferenceNumber: [id number]) metoprolol tartrate 100 mg tablet RxNorm: 811641 TAKE O NE TABLET BY MOUTH TWICE A DAY 01/11/2017 02/12/2017 Inactive metoprolol tartrate 100 mg tablet RxNorm: 051345 1 Tablet(s) PO BID 12/18/2016 12/17/2016 Inactive metoprolol tartrate 100 mg tablet RxNorm: 531892 1 Tablet(s) PO BID 12/18/2016 01/10/2017 Inactive furosemide 40 mg tablet RxNorm: 394590 1 Tablet(s) PO Q AM prn edema--take with potassium 12/13/2016 02/10/2017 Inactive amitriptyline 100 mg tablet RxNorm: 364239 1 Tablet(s) PO QHS 11/2812/12/2016 Inactive baclofen 20 mg tablet RxNorm: 420831 1 Tablet(s) PO TID as needed for muscle spasm 11/14/2016 04/01/2017 Inactive triamterene 75 mg-hydrochlorothiazide 50 mg tablet RxNorm: 3 26053 1 Tablet(s) PO QD 11/14/2016 11/13/2016 Inactive metolazone 2.5 mg tablet RxNorm: 134619 TAKE ONE TABLET BY MOUTH DAILY NEEDED FOR EDEMA 11/14/2016 12/12/2016 Inactive triamterene 75 mg-hydrochlorothiazide 50 mg tablet RxNorm: 3 29715 1 Tablet(s) PO QD 11/14/2016 07/18/2017 Inactive amitriptyline 50 mg tablet RxNorm: 271966 TAKE ONE TABL ET BY MOUTH AT BEDTIME NEEDED FOR SLEEP 11/14/2016 11/27/2016 Inactive Cymbalta 60 mg capsule,delayed release RxNorm: 192996 1 Capsule (s) PO QHS 11/14/2016 12/12/2016 Inactive clonidine HCl 0.1 mg tablet RxNorm: 608752 1 Tablet(s) PO QID 11/1304/04/2017 Inactive amitriptyline 50 mg tablet RxNorm: 789716 1 Tablet(s) P O QHS as needed for sleep 11/01/2016 11/27/2016 Inactive duloxetine 60 mg capsule,delayed release RxNorm: 038911 TAKE ONE CAPSULE BY MOUTH DAILY 10/20/2016 01/17/2017 Inactive allopurinol 300 mg tablet RxNorm: 108867 TAKE ONE TABLET BY LOPEZ TH DAILY 10/20/2016 01/16/2017 Inactive Lyrica 75 mg capsule RxNorm: 688906 TAKE ONE CAPSULE BY MOUTH EVERY NIGHT AT BEDTIME 10/20/2016 12/10/2016 Inactive Klor-Con 8 mEq tablet,extended release RxNorm: 720438 T FARRUKH ONE TABLET BY MOUTH TWICE A DAY 10/20/2016 01/17/2017 Inactive Celebrex 200 mg capsule RxNorm: 154565 TAKE ONE CAPSULE BY MOUT H TWICE A DAY 10/20/2016 07/18/2017 Inactive Bystolic 10 mg tablet RxNorm: 444648 TAKE ONE TABLET BY MOUTH EVERY NIGHT AT BEDTIME 10/20/2016 12/17/2016 Inactive amlodipine 5 mg-benazepril 20 mg capsule RxNorm: 260784 TAKE ONE CAPSULE BY MOUTH EVERY NIGHT AT BEDTIME -- TO REPLACE AMLODOPINE 10/20/20162016 Inactive Lipitor 10 mg tablet RxNorm: 607183 TAKE ONE TABLET BY MOUTH EVERY NIGHT AT BEDTIME 10/20/2016 01/17/2017 Inactive alprazolam 0.5 mg tablet RxNorm: 448702 3 Tablet(s) PO QHS as needed for sleep/anxiety 09/20/2016 10/31/2016 Inactive Tamiflu 75 mg capsule RxNorm: 812180 1 Capsule(s) PO QD 09/19/2016 Inactive Lyrica 75 mg capsule RxNorm: 283452 1 Capsule(s) PO QHS 09/19/2016 Inactive prednisone 20 mg tablet RxNorm: 140783 1 Tablet(s) PO QD 08/10/2016 1 10/17/2015 Inactive doxycycline hyclate 100 mg capsule RxNorm: 7768354 1 Capsule(s) PO BID 08/10/2016 08/19/2016 Inactive Medrol (Dustin) 4 mg tablets in a dose pack RxNorm: 163672 Tablet(s) PO As Directed 07/31/2016 08/22/2016 Inactive Singulair 10 mg tablet RxNorm: 360174 TAKE ONE TABLET BY MOUTH JOSÉ Y 07/27/2016 07/18/2017 Inactive hydrocodone 10 mg-acetaminophen 325 mg tablet RxNorm: 303499 1-2 Tablet(s) QID as needed for pain MUST LAST 30 DAYS 07/26/2016 08/24/2016 Inactive (Response to an electronic controlled substance refill request - RxReferenceNumber: [id number]) alprazolam 0.5 mg tablet RxNorm: 323637 3 Tablet(s) PO QHS as needed for anxiety or sleep 07/26/2016 09/20/2016 Inactive clindamycin 300 mg capsule RxNorm: 410162 1 Capsule(s) PO TID 07/2007/29/2016 Inactive Diflucan 100 mg tablet RxNorm: 997222 1 Tablet(s) PO QD 07/20/2016 Inactive Levaquin 500 mg tablet RxNorm: 984059 1 Tablet(s) PO QD 07/17/2016 Inactive Levaquin 500 mg tablet RxNorm: 530415 1 Tablet(s) PO QD 07/10/2016 Inactive Levaquin 500 mg tablet RxNorm: 871893 1 Tablet(s) PO QD 07/10/2016 Inactive mupirocin 2 % topical ointment RxNorm: 393715 TOP Apply topically to affected areas twice daily 07/06/2016 09/18/2016 Inactive Singulair 10 mg tablet RxNorm: 854744 TAKE ONE TABLET BY MOUTH JOSÉ Y 06/21/2016 01/21/2019 Inactive alprazolam 0.5 mg tablet RxNorm: 207863 TAKE THREE TABL ETS BY MOUTH AT BEDTIME NEEDED FOR SLEEP OR STRESS 05/22/2016 06/20/2016 Inactive triamterene 75 mg-hydrochlorothiazide 50 mg tablet RxNorm: 3 82801 1 Tablet(s) PO QD 04/26/2016 10/21/2016 Inactive Premarin 1.25 mg tablet RxNorm: 968019 1-2 Tablet(s) PO QD 04/26/20 16 03/20/2017 Inactive Klor-Con 8 mEq tablet,extended release RxNorm: 960623 1 Tablet( s) PO BID 04/26/2016 10/19/2016 Inactive Celebrex 200 mg capsule RxNorm: 826343 1 Capsule(s) PO BID TAKE ONE CAPSULE BY MOUTH EVERY DAY 04/26/2016 10/19/2016 Inactive Lipitor 10 mg tablet RxNorm: 372685 1 Tablet(s) PO QHS 04/26/201605/2017 Inactive allopurinol 300 mg tablet RxNorm: 933589 1 Tablet(s) PO QD TAKE ONE TABLET BY MOUTH EVERY DAY 04/26/2016 10/19/2016 Inactive amlodipine 5 mg-benazepril 20 mg capsule RxNorm: 755449 1 Capsule(s) PO QHS replaces amlodopine 04/26/2016 10/19/2016 Inactive duloxetine 60 mg capsule,delayed release RxNorm: 015004 1 Capsu le(s) PO QD 04/26/2016 10/19/2016 Inactive Bystolic 10 mg tablet RxNorm: 902221 1 Tablet(s) PO QHS 04/26/2016 Inactive Singulair 10 mg tablet RxNorm: 753327 1 Tablet(s) PO QD TAKE ONE TABLET BY MOUTH DAILY 04/26/2016 06/20/2016 Inactive clonidine HCl 0.1 mg tablet RxNorm: 752775 1 Tablet(s) PO QID 04/2610/22/2016 Inactive hydrocodone 10 mg-acetaminophen 325 mg tablet RxNorm: 698748 1-2 Tablet(s) QID as needed for pain TAKE ONE TO TWO TABLETS BY MOUTH FOUR TIMES A DAY . MUST LAST 30 DAYS 03/31/2016 04/29/2016 Inactive (Response to an electronic controlled substance refill request - [facility] [id number]) Klor-Con 8 mEq tablet,extended release RxNorm: 842133 T FARRUKH ONE TABLET BY MOUTH TWICE A DAY 03/24/2016 04/22/2016 Inactive prednisone 20 mg tablet RxNorm: 493740 1 Tablet(s) PO QD 03/09/2016 0 03/08/2016 Inactive prednisone 20 mg tablet RxNorm: 561069 1 Tablet(s) PO QD 03/09/2016 0 03/13/2016 Inactive alprazolam 0.5 mg tablet RxNorm: 483695 3 Tablet(s) PO QHS as needed for sleep/stress 03/02/2016 01/21/2019 Inactive mupirocin 2 % topical ointment RxNorm: 474370 TOP twice daily to affected areas of face and neck 02/21/2016 04/25/2016 Inactive clonidine HCl 0.1 mg tablet RxNorm: 423989 TAKE ONE TAB LET BY MOUTH FOUR TIMES A DAY 02/15/2016 03/15/2016 Inactive clonidine HCl 0.1 mg tablet RxNorm: 540420 1 Tablet(s) PO QID 02/1404/25/2016 Inactive Premarin 1.25 mg tablet RxNorm: 043620 1-2 Tablet(s) PO QD 02/15/20 16 03/15/2016 Inactive Klor-Con 8 mEq tablet,extended release RxNorm: 939601 T FARRUKH ONE TABLET BY MOUTH TWICE A DAY 02/15/2016 03/15/2016 Inactive potassium chloride ER 20 mEq tablet,extended release(part/cr yst) RxNorm: 995320 2 Tablet(s) PO BID 02/15/2016 03/15/2016 Inactive Macrobid 100 mg capsule RxNorm: 317624 1 Capsule(s) PO BID 01/24/20 16 01/30/2016 Inactive prednisone 20 mg tablet RxNorm: 259886 Take 3tabs PO QD x 2 days, then 2 tabs PO QD x 2 days, then 1 tab PO QD x 2 days, then 1/2 tab PO QDy x 2 days 12/23/2015 04/25/2016 Inactive Klor-Con 8 mEq tablet,extended release RxNorm: 353789 T FARRUKH ONE TABLET BY MOUTH TWICE A DAY 12/20/2015 02/14/2016 Inactive alprazolam 1 mg tablet RxNorm: 437941 1 1/2 Tablet(s) PO QHS 201501/23/2016 Inactive nystatin 100,000 unit/gram topical cream RxNorm: 549324 APPLY TO AFFECTED AREA(S) TWO TIMES A DAY 11/30/2015 12/14/2015 Inactive Singulair 10 mg tablet RxNorm: 023894 TAKE ONE TABLET BY MOUTH JOSÉ Y 11/18/2015 04/25/2016 Inactive allopurinol 300 mg tablet RxNorm: 959335 1 Tablet(s) PO QD TAKE ONE TABLET BY MOUTH EVERY DAY 10/26/2015 04/22/2016 Inactive Singulair 10 mg tablet RxNorm: 860878 TAKE ONE TABLET BY MOUTH JOSÉ Y 10/26/2015 11/17/2015 Inactive duloxetine 60 mg capsule,delayed release RxNorm: 367480 1 Capsu le(s) PO QD 10/26/2015 04/22/2016 Inactive triamterene 75 mg-hydrochlorothiazide 50 mg tablet RxNorm: 3 97080 1 Tablet(s) PO QD 10/26/2015 11/14/2016 Inactive potassium chloride ER 20 mEq tablet,extended release(part/cr yst) RxNorm: 691103 2 Tablet(s) PO BID 10/26/2015 02/14/2016 Inactive Lipitor 10 mg tablet RxNorm: 965812 1 Tablet(s) PO QHS 10/26/2015 Inactive amlodipine 5 mg-benazepril 20 mg capsule RxNorm: 770808 1 Capsule(s) PO QHS replaces amlodopine 10/26/2015 04/22/2016 Inactive Bystolic 10 mg tablet RxNorm: 070712 1 Tablet(s) PO QHS 10/26/2015 Inactive amlodipine 5 mg-benazepril 20 mg capsule RxNorm: 503031 1 Capsule(s) PO QHS replaces amlodopine 10/06/2015 10/25/2015 Inactive amlodipine 5 mg tablet RxNorm: 784542 1 Tablet(s) PO QHS 09/30/2015 0 04/25/2016 Inactive metolazone 2.5 mg tablet RxNorm: 909915 TAKE ONE TABLET BY MOUTH DAILY NEEDED FOR EDEMA 09/30/2015 01/21/2019 Inactive duloxetine 60 mg capsule,delayed release RxNorm: 147347 1 Capsu le(s) PO QD 09/30/2015 10/25/2015 Inactive cephalexin 500 mg capsule RxNorm: 182403 1 Capsule(s) PO BID 201509/23/2015 Inactive mupirocin 2 % topical ointment RxNorm: 046970 TOP twice daily to affected areas of face and neck 09/14/2015 02/20/2016 Inactive baclofen 20 mg tablet RxNorm: 098926 1 Tablet(s) PO TID as needed for muscle spasm 09/01/2015 11/14/2016 Inactive clonidine HCl 0.1 mg tablet RxNorm: 623272 1 Tablet(s) PO QID 09/0102/14/2016 Inactive alprazolam 1 mg tablet RxNorm: 818001 1 1/2 Tablet(s) PO QHS 201409/09/2015 Inactive baclofen 20 mg tablet RxNorm: 325326 1 Tablet(s) PO TID as needed for muscle spasm 07/23/2015 09/01/2015 Inactive omeprazole 40 mg capsule,delayed release RxNorm: 321842 1 Capsu le(s) PO QD 07/23/2015 04/25/2016 Inactive alprazolam 1 mg tablet RxNorm: 016708 1 1/2 Tablet(s) PO QHS 201408/10/2015 Inactive Bystolic 10 mg tablet RxNorm: 405040 1 Tablet(s) PO BID 06/24/2015 Inactive allopurinol 300 mg tablet RxNorm: 726418 1 Tablet(s) PO QD TAKE ONE TABLET BY MOUTH EVERY DAY 06/23/2015 10/20/2015 Inactive alprazolam 1 mg tablet RxNorm: 577821 1 1/2 Tablet(s) PO QHS 201407/06/2015 Inactive clonidine HCl 0.1 mg tablet RxNorm: 669193 1 Tablet(s) PO QID 06/0209/01/2015 Inactive clonidine HCl 0.1 mg tablet RxNorm: 010630 1 Tablet(s) PO QID 06/0206/01/2015 Inactive Cymbalta 60 mg capsule,delayed release RxNorm: 259475 1 Capsule (s) PO QHS 06/02/2015 08/30/2015 Inactive Cymbalta 60 mg capsule,delayed release RxNorm: 127075 1 Capsule (s) PO QHS 06/02/2015 06/01/2015 Inactive clonidine HCl 0.1 mg tablet RxNorm: 796762 1 Tablet(s) PO TID 05/3106/01/2015 Inactive replaces 0.2mg dose metolazone 2.5 mg tablet RxNorm: 708976 TAKE ONE TABLET BY MOUTH DAILY NEEDED FOR EDEMA 05/21/2015 06/19/2015 Inactive Singulair 10 mg tablet RxNorm: 763917 TAKE ONE TABLET BY MOUTH JOSÉ Y 05/21/2015 10/17/2015 Inactive Cymbalta 30 mg capsule,delayed release RxNorm: 145102 1 Capsule (s) PO QHS 05/20/2015 11/14/2016 Inactive betamethasone valerate 0.1 % topical cream RxNorm: 928278 Appli cation TOP BID 05/10/2015 04/25/2016 Inactive Bactroban 2 % topical ointment RxNorm: 264894 Application TOP BID 0 05/10/2015 06/20/2015 Inactive baclofen 20 mg tablet RxNorm: 090298 1 Tablet(s) PO TID as needed 0 04/26/2015 07/23/2015 Inactive Lipitor 10 mg tablet RxNorm: 751401 1 Tablet(s) PO QHS 04/26/201508/2016 Inactive clonidine HCl 0.1 mg tablet RxNorm: 408105 1 Tablet(s) PO TID 04/2605/30/2015 Inactive replaces 0.2mg dose Klor-Con 8 mEq tablet,extended release RxNorm: 738070 1 Tablet( s) PO BID 04/26/2015 04/25/2016 Inactive metolazone 2.5 mg tablet RxNorm: 308370 1 Tablet(s) PO QD as ne eded for edema 04/26/2015 04/25/2015 Inactive triamterene 75 mg-hydrochlorothiazide 50 mg tablet RxNorm: 3 98815 1 Tablet(s) PO QD 04/26/2015 10/22/2015 Inactive Premarin 1.25 mg tablet RxNorm: 146109 1-2 Tablet(s) PO QD 04/26/20 15 10/22/2015 Inactive Bystolic 10 mg tablet RxNorm: 972272 1 Tablet(s) PO QAM TAKE ONE TABLET BY MOUTH EVERY MORNING 04/23/2015 06/23/2015 Inactive clonidine HCl 0.1 mg tablet RxNorm: 639905 1 Tablet(s) PO TID 03/2304/25/2015 Inactive replaces 0.2mg dose nystatin 100,000 unit/gram topical cream RxNorm: 780792 Applica tion TOP BID 03/23/2015 06/20/2015 Inactive baclofen 20 mg tablet RxNorm: 545237 1 Tablet(s) PO TID as needed 0 03/23/2015 04/25/2015 Inactive Premarin 1.25 mg tablet RxNorm: 729374 1-2 Tablet(s) PO QD 03/23/20 15 04/25/2015 Inactive Klor-Con 8 mEq tablet,extended release RxNorm: 524199 1 Tablet( s) PO BID 03/23/2015 04/25/2015 Inactive cefdinir 300 mg capsule RxNorm: 183676 2 Capsule(s) PO QD 03/16/2015 03/25/2015 Inactive baclofen 20 mg tablet RxNorm: 264798 1 Tablet(s) PO TID as needed 0 03/02/2015 03/22/2015 Inactive allopurinol 300 mg tablet RxNorm: 573490 1 Tablet(s) PO QD TAKE ONE TABLET BY MOUTH EVERY DAY 02/22/2015 05/22/2015 Inactive Klor-Con M20 mEq tablet,extended release RxNorm: 672285 2 Tablet(s) PO BID to use with lasix 02/22/2015 06/20/2015 Inactive clonidine HCl 0.1 mg tablet RxNorm: 901170 1 Tablet(s) PO TID 02/1903/22/2015 Inactive replaces 0.2mg dose Lipitor 10 mg tablet RxNorm: 932455 1 Tablet(s) PO QHS 01/20/201506/2015 Inactive Lipitor 10 mg tablet RxNorm: 247971 1 Tablet(s) PO QHS 01/20/2015 Inactive Singulair 10 mg tablet RxNorm: 631523 1 Tablet(s) PO QD TAKE ONE TABLET BY MOUTH EVERY DAY 11/20/2014 05/18/2015 Inactive Lipitor 10 mg tablet RxNorm: 769468 1 Tablet(s) PO QHS 11/20/201408/2015 Inactive allopurinol 300 mg tablet RxNorm: 870432 1 Tablet(s) PO QD TAKE ONE TABLET BY MOUTH EVERY DAY 11/20/2014 02/16/2015 Inactive Bystolic 10 mg tablet RxNorm: 491582 1 Tablet(s) PO QAM TAKE ONE TABLET BY MOUTH EVERY MORNING 11/20/2014 04/22/2015 Inactive Klor-Con 8 mEq tablet,extended release RxNorm: 405270 1 Tablet( s) PO BID 11/20/2014 02/17/2015 Inactive baclofen 20 mg tablet RxNorm: 126724 1 Tablet(s) PO TID as needed 0 11/20/2014 01/21/2019 Inactive baclofen 20 mg tablet RxNorm: 750560 1 Tablet(s) PO TID as needed 0 10/27/2014 11/19/2014 Inactive baclofen 20 mg tablet RxNorm: 559867 1 Tablet(s) PO TID as needed 0 10/26/2014 03/01/2015 Inactive allopurinol 300 mg tablet RxNorm: 475526 1 Tablet(s) PO QD TAKE ONE TABLET BY MOUTH EVERY DAY 10/26/2014 11/20/2014 Inactive Bystolic 10 mg tablet RxNorm: 814850 1 Tablet(s) PO QAM TAKE ONE TABLET BY MOUTH EVERY MORNING 10/26/2014 11/20/2014 Inactive clonidine HCl 0.1 mg tablet RxNorm: 565982 1 Tablet(s) PO TID 09/2805/27/2019 Inactive replaces 0.2mg dose clonidine HCl 0.1 mg tablet RxNorm: 718347 1 Tablet(s) PO TID 09/2802/18/2015 Inactive replaces 0.2mg dose baclofen 20 mg tablet RxNorm: 748877 1 Tablet(s) PO TID as needed 1 11/01/2013 08/30/2014 Inactive Lipitor 10 mg tablet RxNorm: 942479 1 Tablet(s) PO QHS 08/31/2014 Inactive baclofen 20 mg tablet RxNorm: 732799 1 Tablet(s) PO TID as needed 1 11/01/2013 10/26/2014 Inactive triamterene 75 mg-hydrochlorothiazide 50 mg tablet RxNorm: 3 68909 1 Tablet(s) PO QD 08/31/2014 02/26/2015 Inactive Klor-Con 8 mEq tablet,extended release RxNorm: 859387 1 Tablet( s) PO BID 08/31/2014 11/20/2014 Inactive baclofen 20 mg tablet RxNorm: 866023 1 Tablet(s) PO TID as needed 1 09/30/2013 10/25/2014 Inactive baclofen 20 mg tablet RxNorm: 809210 1 Tablet(s) PO TID as needed 1 09/30/2013 08/31/2014 Inactive omeprazole 40 mg capsule,delayed release RxNorm: 233170 1 Capsu le(s) PO QD 07/21/2014 07/23/2015 Inactive Flonase 50 mcg/actuation nasal spray,suspension RxNorm: 8963 23 1 [place] NASAL BID 07/15/2014 04/09/2017 Inactive hydrocodone 10 mg-acetaminophen 325 mg tablet RxNorm: 403289 1-2 Tablet(s) QID as needed for pain TAKE ONE TO TWO TABLETS BY MOUTH FOUR TIMES A DAY . MUST LAST 30 DAYS 06/30/2014 07/27/2014 Inactive (Response to an electronic controlled substance refill request - RxReferenceNumber: [id number]) baclofen 20 mg tablet RxNorm: 942540 1 Tablet(s) PO TID as needed 1 07/31/2014 Inactive Singulair 10 mg tablet RxNorm: 012409 1 Tablet(s) PO QD TAKE ONE TABLET BY MOUTH EVERY DAY 05/25/2014 11/20/2014 Inactive Bystolic 10 mg tablet RxNorm: 282988 TAKE ONE TABLET BY MOUTH E VERY MORNING 05/25/2014 09/21/2014 Inactive allopurinol 300 mg tablet RxNorm: 076455 1 Tablet(s) PO QD TAKE ONE TABLET BY MOUTH EVERY DAY 05/25/2014 10/21/2014 Inactive baclofen 20 mg tablet RxNorm: 697882 1 Tablet(s) PO TID as needed 0 05/25/2014 06/29/2014 Inactive allopurinol 300 mg tablet RxNorm: 265687 TAKE ONE TABLET BY LOPEZ TH EVERY DAY 05/25/2014 09/21/2014 Inactive Singulair 10 mg tablet RxNorm: 533450 1 Tablet(s) PO QD TAKE ONE TABLET BY MOUTH EVERY DAY 05/25/2014 05/24/2014 Inactive Bystolic 10 mg tablet RxNorm: 289161 1 Tablet(s) PO QAM TAKE ONE TABLET BY MOUTH EVERY MORNING 05/25/2014 10/21/2014 Inactive metolazone 2.5 mg tablet RxNorm: 867511 1 Tablet(s) PO QD as ne eded for edema 05/18/2014 04/25/2015 Inactive Lasix 40 mg tablet RxNorm: 482187 1 Tablet(s) PO QAM s hould take potassium supplementation with this medication 05/14/2014 05/17/2014 Inactive hydrocodone 10 mg-acetaminophen 325 mg tablet RxNorm: 156518 1-2 Tablet(s) QID as needed for pain TAKE ONE TO TWO TABLETS BY MOUTH FOUR TIMES A DAY . MUST LAST 30 DAYS 05/07/2014 06/05/2014 Inactive (Response to an electronic controlled substance refill request - RxReferenceNumber: [id number]) alprazolam 0.5 mg tablet RxNorm: 483214 TAKE ONE TABLET BY MOUTH TWICE A DAY , MUST LAST 30 DAYS 05/07/2014 05/22/2016 Inactive (Response to a n electronic controlled substance refill request - RxReferenceNumber: [id number]) diclofenac sodium 75 mg tablet,delayed release RxNorm: 18338 6 1 Tablet(s) PO BID for pain 04/24/2014 07/20/2014 Inactive Celebrex 200 mg capsule RxNorm: 595800 TAKE ONE CAPSULE BY MOUT H EVERY DAY 04/24/2014 07/20/2014 Inactive alprazolam 0.5 mg tablet RxNorm: 180991 TAKE ONE TABLET BY MOUTH TWICE A DAY , MUST LAST 30 DAYS 03/24/2014 04/22/2014 Inactive (Response to a n electronic controlled substance refill request - RxReferenceNumber: [id number]) diclofenac sodium 75 mg tablet,delayed release RxNorm: 63700 6 1 Tablet(s) PO BID for pain 03/24/2014 04/24/2014 Inactive clonidine HCl 0.1 mg tablet RxNorm: 863082 1 Tablet(s) PO TID 03/2409/28/2014 Inactive replaces 0.2mg dose Klor-Con 8 mEq tablet,extended release RxNorm: 506233 1 Tablet( s) PO BID 02/26/2014 08/31/2014 Inactive diclofenac sodium 75 mg tablet,delayed release RxNorm: 51171 6 1 Tablet(s) PO BID for pain 02/25/2014 03/24/2014 Inactive hydrocodone 10 mg-acetaminophen 325 mg tablet RxNorm: 760529 1-2 Tablet(s) QID as needed for pain TAKE ONE TO TWO TABLETS BY MOUTH FOUR TIMES A DAY . MUST LAST 30 DAYS 02/25/2014 03/26/2014 Inactive (Response to an electronic controlled substance refill request - RxReferenceNumber: [id number]) alprazolam 0.5 mg tablet RxNorm: 362548 Tablet(s) PO BI D as needed for anxiety TAKE ONE TABLET BY MOUTH TWICE A DAY , MUST LAST 30 DAYS 02/25/2014 Inactive (Response to an electronic controlled [place] bstance refill request - RxReferenceNumber: [id number]) [AttnRPh: Saving apply/adjudicate RxGRP:SG20 RxBIN:[id number] RxN: ID#:[id number]] alprazolam 0.5 mg tablet RxNorm: 922709 Tablet(s) TAKE ONE TABLET BY MOUTH TWICE A DAY , MUST LAST 30 DAYS 01/27/2014 02/24/2014 Inactive (Respo nse to an electronic controlled substance refill request - RxReferenceNumber: [id number]) [AttnRPh: Saving apply/adjudicate RxGRP:SG20 RxBIN:[id number] RxPCN: ID#:[id number]] hydrocodone 10 mg-acetaminophen 325 mg tablet RxNorm: 218032 1-2 Tablet(s) QID as needed for pain TAKE ONE TO TWO TABLETS BY MOUTH FOUR TIMES A DAY . MUST LAST 30 DAYS 01/27/2014 02/24/2014 Inactive (Response to an electronic controlled substance refill request - RxReferenceNumber: [id number]) alprazolam 0.5 mg tablet RxNorm: 760105 TAKE ONE TABLET BY MOUTH TWICE A DAY , MUST LAST 30 DAYS 01/27/2014 01/26/2014 Inactive (Response to a n electronic controlled substance refill request - RxReferenceNumber: [id number]) Premarin 1.25 mg tablet RxNorm: 651124 1-2 Tablet(s) PO QD 01/28/20 14 07/25/2014 Inactive alprazolam 0.5 mg tablet RxNorm: 428935 TAKE ONE TABLET BY MOUTH TWICE A DAY , MUST LAST 30 DAYS 01/27/2014 01/27/2014 Inactive (Response to a n electronic controlled substance refill request - RxReferenceNumber: [id number]) hydrocodone 10 mg-acetaminophen 325 mg tablet RxNorm: 049913 TAKE ONE TO TWO TABLETS BY MOUTH FOUR TIMES A DAY . MUST LAST 30 DAYS 01/27/20142013 Inactive (Response to an electronic controlled [place] bstance refill request - RxReferenceNumber: [id number]) Celebrex 200 mg capsule RxNorm: 720930 1 Capsule(s) PO QD TAKE ONE CAPSULE BY MOUTH EVERY DAY 12/29/2013 04/27/2014 Inactive hydrocodone 10 mg-acetaminophen 325 mg tablet RxNorm: 811994 1-2 Tablet(s) PO QID as needed for severe pain 12/29/2013 01/27/2014 Inactive allopurinol 300 mg tablet RxNorm: 541496 1 Tablet(s) PO QD TAKE ONE TABLET BY MOUTH EVERY DAY 12/29/2013 05/24/2014 Inactive alprazolam 0.5 mg tablet RxNorm: 526172 TAKE ONE TABLET BY MOUTH TWICE A DAY , MUST LAST 30 DAYS 12/29/2013 01/27/2014 Inactive (Response to a n electronic controlled substance refill request - RxReferenceNumber: [id number]) Celebrex 200 mg capsule RxNorm: 000147 1 Capsule(s) PO QD TAKE ONE CAPSULE BY MOUTH EVERY DAY 12/29/2013 12/29/2013 Inactive Bystolic 10 mg tablet RxNorm: 305373 1 Tablet(s) PO QAM TAKE ONE TABLET BY MOUTH EVERY MORNING 12/29/2013 05/24/2014 Inactive Bystolic 10 mg tablet RxNorm: 715429 1 Tablet(s) PO QAM TAKE ONE TABLET BY MOUTH EVERY MORNING 12/29/2013 12/29/2013 Inactive Singulair 10 mg tablet RxNorm: 583953 1 Tablet(s) PO QD TAKE ONE TABLET BY MOUTH EVERY DAY 12/29/2013 05/25/2014 Inactive hydrocodone 10 mg-acetaminophen 325 mg tablet RxNorm: 280472 TAKE ONE TO TWO TABLETS BY MOUTH FOUR TIMES A DAY . MUST LAST 30 DAYS 12/29/20132013 Inactive (Response to an electronic controlled [place] bstance refill request - RxReferenceNumber: [id number]) Trazadone 75mg Tablet RxNorm: 1 Tablet(s) PO QHS as needed 03/23/2014 Inactive Trazadone 75mg Tablet RxNorm: 1 Tablet(s) PO QHS 12/24/20132014 Inactive Soma 350 mg tablet RxNorm: 925236 Tablet(s) PO TAKE ON E TABLET BY MOUTH THREE TIMES A DAY NEEDED FOR MUSCLE SPASMS. THIS MUST LAST 30 DAYS BETWEEN REFILLS. 12/10/2013 12/22/2013 Inactive (Appended: Cont rolled substance eRx refill - RxReferenceNumber: [id number]) diclofenac sodium 75 mg tablet,delayed release RxNorm: 36499 6 1 Tablet(s) PO BID for pain 12/10/2013 02/24/2014 Inactive allopurinol 300 mg tablet RxNorm: 161660 1 Tablet(s) PO QD 11/20/19 14 12/29/2013 Inactive alprazolam 0.5 mg tablet RxNorm: 411906 2 Tablet(s) PO BID 11/13/19 14 12/29/2013 Inactive prn clonidine 0.1 mg tablet RxNorm: 701406 1 Tablet(s) PO TID 11/12/2013 02/09/2014 Inactive replaces 0.2mg dose Klor-Con M20 mEq tablet,extended release RxNorm: 626688 2 Tablet(s) PO BID to use with lasix 11/12/2013 05/10/2014 Inactive Singulair 10 mg tablet RxNorm: 159859 1 Tablet(s) PO QD 11/12/2013 Inactive hydrocodone 10 mg-acetaminophen 325 mg tablet RxNorm: 575222 1-2 Tablet(s) PO QID as needed for severe pain 11/12/2013 12/28/2013 Inactive Bystolic 10 mg tablet RxNorm: 426217 1 Tablet(s) PO QAM 11/12/2013 Inactive Soma 350 mg tablet RxNorm: 790194 Tablet(s) PO TAKE ON E TABLET BY MOUTH THREE TIMES A DAY NEEDED FOR MUSCLE SPASMS. THIS MUST LAST 30 DAYS BETWEEN REFILLS. 10/13/2013 12/10/2013 Inactive (Appended: Cont rolled substance eRx refill - RxReferenceNumber: [id number]) hydrocodone 10 mg-acetaminophen 325 mg tablet RxNorm: 927095 1-2 Tablet(s) PO QID as needed for severe pain 10/03/2013 11/11/2013 Inactive diclofenac sodium 75 mg tablet,delayed release RxNorm: 30272 8 1 Tablet(s) PO BID for pain 09/11/2013 12/10/2013 Inactive alprazolam 0.5 mg tablet RxNorm: 477808 1 Tablet(s) PO BID May refill on 04/26/13 09/01/2013 10/30/2013 Inactive prn hydrocodone 10 mg-acetaminophen 325 mg tablet RxNorm: 086597 1-2 Tablet(s) PO QID as needed for severe pain 09/01/2013 10/02/2013 Inactive triamterene 75 mg-hydrochlorothiazide 50 mg tablet RxNorm: 3 06501 1 Tablet(s) PO QD 08/04/2013 08/31/2014 Inactive cyclobenzaprine 10 mg tablet RxNorm: 423802 1 Tablet(s) PO TID prn spasm 08/04/2013 08/13/2013 Inactive clonidine 0.1 mg tablet RxNorm: 385436 1 Tablet(s) PO TID 08/04/2013 11/11/2013 Inactive replaces 0.2mg dose cyclobenzaprine 10 mg tablet RxNorm: 274020 1 Tablet(s) PO TID prn spasm 07/23/2013 08/01/2013 Inactive hydrocodone 10 mg-acetaminophen 325 mg tablet RxNorm: 097156 2 1-2 Tablet(s) PO QID as needed for severe pain 06/09/2013 08/07/2013 Inactive Singulair 10 mg tablet RxNorm: 493484 1 Tablet(s) PO QD 05/29/2013 Inactive Klor-Con 8 mEq tablet,extended release RxNorm: 009401 1 Tablet( s) PO BID 05/29/2013 02/26/2014 Inactive allopurinol 300 mg tablet RxNorm: 557206 1 Tablet(s) PO QD 05/29/20 13 11/19/2013 Inactive Bystolic 10 mg tablet RxNorm: 912662 1 Tablet(s) PO QAM take one daily in the morning. 05/29/2013 11/11/2013 Inactive scopolamine 1.5 mg 72 hr Transderm Patch RxNorm: 691355 Application TD Q72H for motion sickness 05/26/2013 07/22/2013 Inactive Soma 350 mg tablet RxNorm: 194892 1 Tablet(s) PO TID as needed for spasm 05/19/2013 10/13/2013 Inactive diclofenac sodium 75 mg tablet,delayed release RxNorm: 46689 8 1 Tablet(s) PO BID for pain 05/14/2013 07/22/2013 Inactive allopurinol 300 mg tablet RxNorm: 804077 1 Tablet(s) PO QD 04/25/20 13 05/28/2013 Inactive alprazolam 0.5 mg tablet RxNorm: 520160 1 Tablet(s) PO BID May refill on 04/26/13 04/25/2013 06/23/2013 Inactive prn Celebrex 200 mg capsule RxNorm: 202338 1 Capsule(s) PO QD 04/16/2013 12/29/2013 Inactive alprazolam 0.5 mg tablet RxNorm: 539861 1 Tablet(s) PO BID May refill on 04/26/13 04/16/2013 04/24/2013 Inactive prn Soma 350 mg tablet RxNorm: 074956 1 Tablet(s) PO TID as needed for spasm 04/16/2013 No Stop Date Active Lasix 40 mg tablet RxNorm: 993735 1 Tablet(s) PO QAM s hould take potassium supplementation with this medication 04/16/2013 06/14/2013 Inactive clonidine 0.1 mg tablet RxNorm: 340828 1 Tablet(s) PO TID 04/16/2013 08/03/2013 Inactive replaces 0.2mg dose prednisone 20 mg tablet RxNorm: 006789 1 Tablet(s) PO BID 04/16/2013 04/20/2013 Inactive diclofenac sodium 75 mg tablet,delayed release RxNorm: 55417 8 1 Tablet(s) PO BID for pain 04/14/2013 05/13/2013 Inactive hydrocodone 10 mg-acetaminophen 325 mg tablet RxNorm: 015990 2 1-2 Tablet(s) PO QID as needed for severe pain 04/14/2013 No Stop Date Active Lasix 40 mg tablet RxNorm: 168636 1 Tablet(s) PO QAM s hould take potassium supplementation with this medication 03/31/2013 04/15/2013 Inactive Celebrex 200 mg capsule RxNorm: 222243 1 Capsule(s) PO QD 03/31/2013 04/15/2013 Inactive alprazolam 0.5 mg tablet RxNorm: 457992 1 Tablet(s) PO BID 03/28/20 13 04/15/2013 Inactive prn hydrocodone 10 mg-acetaminophen 325 mg tablet RxNorm: 713636 2 1-2 Tablet(s) PO QID as needed for severe pain 03/10/2013 No Stop Date Active metformin ER 500 mg 24 hr tablet,extended release RxNorm: 86 1018 1 Tablet(s) PO QD 03/06/2013 07/22/2013 Inactive clindamycin 300 mg capsule RxNorm: 024501 2 Capsule(s) PO TID 03/0503/14/2013 Inactive Zaroxolyn 2.5 mg tablet RxNorm: 677292 1 Tablet(s) PO QAM 03/05/2013 05/19/2015 Inactive amlodipine 10 mg tablet RxNorm: 595621 1 Tablet(s) PO QD 03/03/2013 0 05/25/2013 Inactive Norvasc 10 mg tablet RxNorm: 781877 1 Tablet(s) PO QD 02/28/201307/11 Inactive Celebrex 200 mg capsule RxNorm: 312641 1 Capsule(s) PO QD 02/28/2013 03/30/2013 Inactive diclofenac sodium 75 mg tablet,delayed release RxNorm: 19550 8 1 Tablet(s) PO BID for pain 02/14/2013 03/15/2013 Inactive Soma 350 mg tablet RxNorm: 176412 1 Tablet(s) PO TID as needed for spasm 02/14/2013 No Stop Date Active hydrocodone 10 mg-acetaminophen 325 mg tablet RxNorm: 165548 2 1-2 Tablet(s) PO QID as needed for severe pain 02/14/2013 No Stop Date Active Norvasc 10 mg tablet RxNorm: 668901 1 Tablet(s) PO QD 02/10/201302/09 Inactive Celebrex 200 mg capsule RxNorm: 031321 1 Capsule(s) PO QD 01/27/2013 01/26/2013 Inactive Premarin 1.25 mg tablet RxNorm: 953386 1-2 Tablet(s) PO QD 01/28/20 13 06/25/2013 Inactive alprazolam 0.5 mg tablet RxNorm: 645698 1 Tablet(s) PO BID 01/28/20 13 02/25/2013 Inactive prn amlodipine 5 mg tablet RxNorm: 862170 1 Tablet(s) PO QD 01/27/2013 Inactive Celebrex 200 mg capsule RxNorm: 686466 1 Capsule(s) PO QD 01/27/2013 02/27/2013 Inactive gabapentin 600 mg tablet RxNorm: 454974 1 Tablet(s) PO QHS 01/16/20 13 07/22/2013 Inactive Soma 350 mg tablet RxNorm: 941233 1 Tablet(s) PO TID as needed for spasm 01/15/2013 No Stop Date Active hydrocodone 10 mg-acetaminophen 325 mg tablet RxNorm: 024380 2 1-2 Tablet(s) PO QID as needed for severe pain 01/15/2013 No Stop Date Active Soma 350 mg tablet RxNorm: 076275 1 Tablet(s) PO TID as needed for spasm 01/13/2013 No Stop Date Active alprazolam 0.5 mg tablet RxNorm: 126834 1 Tablet(s) PO BID 12/31/19 13 01/26/2013 Inactive prn diclofenac sodium 75 mg tablet,delayed release RxNorm: 31550 8 1 Tablet(s) PO BID for pain 12/09/2012 01/07/2013 Inactive gabapentin 600 mg tablet RxNorm: 256301 1 Tablet(s) PO QHS 12/10/19 13 01/07/2013 Inactive hydrocodone 10 mg-acetaminophen 325 mg tablet RxNorm: 503495 2 1-2 Tablet(s) PO QID as needed for severe pain 12/02/2012 No Stop Date Active Levaquin 750 mg tablet RxNorm: 286490 1 Tablet(s) PO QD 11/21/2012 Inactive Singulair 10 mg tablet RxNorm: 009956 1 Tablet(s) PO QD 11/11/2012 Inactive clonidine 0.2 mg tablet RxNorm: 965143 1 Tablet(s) PO TID 11/11/2012 04/15/2013 Inactive alprazolam 0.5 mg tablet RxNorm: 822147 1 Tablet(s) PO BID 11/12/19 13 12/10/2012 Inactive prn Klor-Con 8 mEq tablet,extended release RxNorm: 693884 1 Tablet( s) PO BID 11/11/2012 03/04/2013 Inactive hydrocodone 10 mg-acetaminophen 325 mg tablet RxNorm: 021459 2 1-2 Tablet(s) PO QID as needed for severe pain 11/06/2012 No Stop Date Active alprazolam 0.5 mg tablet RxNorm: 925684 1 Tablet(s) PO BID 10/15/19 13 11/10/2012 Inactive prn hydrocodone-acetaminophen 10 mg-325 mg tablet RxNorm: 526107 2 1-2 Tablet(s) PO QID as needed for severe pain 10/10/2012 10/09/2012 Inactive allopurinol 300 mg tablet RxNorm: 828705 1 Tablet(s) PO QD 09/20/19 13 12/18/2012 Inactive alprazolam 0.5 mg tablet RxNorm: 769978 1 Tablet(s) PO BID 09/17/19 13 10/14/2012 Inactive prn hydrocodone-acetaminophen 10 mg-325 mg tablet RxNorm: 822711 2 1-2 Tablet(s) PO QID as needed for severe pain 08/22/2012 08/21/2012 Inactive Norvasc 10 mg tablet RxNorm: 763492 1 Tablet(s) PO QD 08/12/201201/10 Inactive Premarin 1.25 mg tablet RxNorm: 130186 1-2 Tablet(s) PO QD 07/30/20 12 12/26/2012 Inactive alprazolam 0.5 mg tablet RxNorm: 889705 1 Tablet(s) PO BID 07/29/20 12 08/27/2012 Inactive prn Klor-Con 8 mEq tablet,extended release RxNorm: 923929 1 Tablet( s) PO BID 07/29/2012 11/10/2012 Inactive hydrocodone-acetaminophen 10 mg-325 mg tablet RxNorm: 435104 2 1-2 Tablet(s) PO QID as needed for severe pain 07/29/2012 No Stop Date Active Premarin 1.25 mg tablet RxNorm: 343971 1-2 Tablet(s) PO QD 07/29/20 12 07/29/2012 Inactive clonidine 0.2 mg tablet RxNorm: 491270 1 Tablet(s) PO TID 07/29/2012 10/28/2012 Inactive ketorolac 10 mg tablet RxNorm: 854143 1 Tablet(s) PO QID prn he adache 07/18/2012 No Stop Date Active hydrocodone-acetaminophen 10 mg-325 mg tablet RxNorm: 727339 2 1-2 Tablet(s) PO QID as needed for severe pain 07/03/2012 No Stop Date Active amlodipine 5 mg tablet RxNorm: 356021 1 Tablet(s) PO QD 07/02/2012 Inactive allopurinol 300 mg tablet RxNorm: 987207 1 Tablet(s) PO QD 07/02/2009/19/2012 Inactive Celebrex 200 mg capsule RxNorm: 690917 1 Capsule(s) PO QD for j oint pain 06/26/2012 10/23/2012 Inactive diclofenac sodium 75 mg tablet,delayed release RxNorm: 75827 8 1 Tablet(s) PO BID for pain 06/19/2012 09/16/2012 Inactive hydrocodone-acetaminophen 10 mg-325 mg tablet RxNorm: 374853 2 1-2 Tablet(s) PO QID as needed for severe pain 06/10/2012 No Stop Date Active alprazolam 0.5 mg tablet RxNorm: 099122 1 Tablet(s) PO BID 06/03/20 12 07/02/2012 Inactive prn ketorolac 10 mg tablet RxNorm: 563007 1 Tablet(s) PO Q8H 05/27/2012 0 01/21/2019 Inactive as needed for headache hydrocodone-acetaminophen 10 mg-325 mg tablet RxNorm: 808811 2 1-2 Tablet(s) PO QID as needed for severe pain 05/15/2012 No Stop Date Active allopurinol 300 mg tablet RxNorm: 532735 1 Tablet(s) PO QD 05/14/20 12 06/12/2012 Inactive allopurinol 300 mg tablet RxNorm: 547787 1 Tablet(s) PO QD 05/14/20 12 05/13/2012 Inactive amlodipine 5 mg tablet RxNorm: 587061 1 Tablet(s) PO QD 05/01/2012 Inactive amlodipine 5 mg Tab RxNorm: 700932 1 Tablet(s) PO QD 05/01/201204/30 Inactive Celebrex 200 mg capsule RxNorm: 493574 1 Capsule(s) PO QD for j oint pain 05/01/2012 06/25/2012 Inactive Singulair 10 mg tablet RxNorm: 746649 1 Tablet(s) PO QD 05/01/2012 Inactive alprazolam 0.5 mg tablet RxNorm: 708595 1 Tablet(s) PO BID 05/01/2005/30/2012 Inactive prn Celebrex 200 mg Cap RxNorm: 976720 1 Capsule(s) PO QD for joint radu n 05/01/2012 04/30/2012 Inactive hydrocodone-acetaminophen 10 mg-325 mg tablet RxNorm: 573117 2 1-2 Tablet(s) PO QID as needed for severe pain 04/19/2012 No Stop Date Active Lasix 40 mg tablet RxNorm: 622537 1 Tablet(s) PO RAZA ramirez take potassium supplementation with this medication 04/05/2012 06/03/2012 Inactive alprazolam 0.5 mg Tab RxNorm: 400471 1 Tablet(s) PO BID 04/05/2012 Inactive prn hydrocodone-acetaminophen 10 mg-325 mg Tab RxNorm: 3294814 1-2 Tablet(s) PO QID as needed for severe pain 03/25/2012 03/24/2012 Inactive clonidine 0.2 mg Tab RxNorm: 583716 1 Tablet(s) PO TID 03/08/2012 Inactive alprazolam 0.5 mg Tab RxNorm: 288885 1 Tablet(s) PO BID 03/08/2012 Inactive prn Soma 350 mg tablet RxNorm: 437541 1 Tablet(s) PO TID for spasm 02/0903/18/2012 Inactive clonidine 0.2 mg tablet RxNorm: 309042 1 Tablet(s) PO TID 03/08/2012 07/28/2012 Inactive Celebrex 200 mg Cap RxNorm: 975595 1 Capsule(s) PO QD for joint radu n 03/01/2012 04/29/2012 Inactive amlodipine 5 mg Tab RxNorm: 167602 1 Tablet(s) PO QD 02/26/201202/24 Inactive amlodipine 5 mg Tab RxNorm: 214712 1 Tablet(s) PO QD 02/26/201204/25 Inactive Bactroban 2 % Ointment RxNorm: 433122 Application TOP QID to sores 02/23/2012 No Stop Date Active amlodipine 2.5 mg tablet RxNorm: 297791 1 Tablet(s) PO QHS 02/20/20 12 02/25/2012 Inactive doxycycline hyclate 100 mg Cap RxNorm: 4558255 1 Capsule(s) PO BID 02/20/2012 02/29/2012 Inactive hydrocodone-acetaminophen 10 mg-325 mg Tab RxNorm: 0615800 1-2 T ablet(s) PO QID 02/08/2012 No Stop Date Active alprazolam 0.5 mg Tab RxNorm: 755906 1 Tablet(s) PO BID 02/08/2012 Inactive prn Singulair 10 mg Tab RxNorm: 560012 1 Tablet(s) PO QD 02/08/201204/30 Inactive Soma 350 mg Tab RxNorm: 631965 1 Tablet(s) PO TID for spasm 012 03/07/2012 Inactive Soma 350 mg Tab RxNorm: 157840 1 Tablet(s) PO TID for spasm 012 02/05/2012 Inactive diclofenac sodium 75 mg tablet,delayed release RxNorm: 16024 8 1 Tablet(s) PO BID for pain 02/01/2012 03/18/2012 Inactive Celebrex 200 mg Cap RxNorm: 641876 1 Capsule(s) PO QD for joint radu n 01/30/2012 02/28/2012 Inactive Lasix 40 mg Tab RxNorm: 582148 1 Tablet(s) PO QAM 01/24/2012 03/18/20 12 Inactive potassium chloride ER 20 mEq tablet,extended release(part/cr yst) RxNorm: 661120 2 Tablet(s) PO BID 01/24/2012 02/22/2012 Inactive alprazolam 0.5 mg Tab RxNorm: 719386 1 Tablet(s) PO BID 01/11/2012 Inactive prn hydrocodone-acetaminophen 10 mg-325 mg Tab RxNorm: 7884897 1-2 T ablet(s) PO QID 01/11/2012 No Stop Date Active Ambien 10 mg Tab RxNorm: 706323 1 Tablet(s) PO QHS 01/11/2012 012 Inactive Klor-Con 8 mEq Tab RxNorm: 494990 1 Tablet(s) PO BID 01/11/201201/22 Inactive diclofenac sodium 75 mg Tab, Delayed Release RxNorm: 530711 1 Tablet(s) PO BID for pain 01/10/2012 01/31/2012 Inactive Ambien 10 mg Tab RxNorm: 629253 1 Tablet(s) PO QHS 12/11/2011 012 Inactive alprazolam 0.5 mg Tab RxNorm: 915203 1 Tablet(s) PO BID 12/11/2011 Inactive prn hydrocodone 10 mg-acetaminophen 325 mg tablet RxNorm: 750801 1-2 Tablet(s) PO TID 11/28/2011 No Stop Date Active as needed for pa in - Previous quantity #240, will start dosing for #180 in April 2011 per Doctor Td. Ambien 10 mg Tab RxNorm: 149496 1 Tablet(s) PO QHS 11/09/2011 012 Inactive alprazolam 0.5 mg Tab RxNorm: 077705 1 Tablet(s) PO BID 11/09/2011 Inactive prn hydrocodone-acetaminophen 10 mg-325 mg Tab RxNorm: 7036656 1-2 T ablet(s) PO TID 11/06/2011 No Stop Date Active as needed for pain - Previous quantity #240, will start dosing for #180 in April 2011 per Doctor Td. Singulair 10 mg Tab RxNorm: 235304 1 Tablet(s) PO QD 10/13/201110/12 Inactive Singulair 10 mg Tab RxNorm: 107453 1 Tablet(s) PO QD 10/13/201102/06 Inactive hydrocodone-acetaminophen 10 mg-325 mg Tab RxNorm: 2459550 1-2 T ablet(s) PO TID 10/10/2011 10/09/2011 Inactive as needed for pain - Previous quantity #240, will start dosing for #180 in April 2011 per Doctor Td. hydrocodone-acetaminophen 10 mg-325 mg Tab RxNorm: 1516653 1-2 T ablet(s) PO TID 10/09/2011 No Stop Date Active as needed for pain - Previous quantity #240, will start dosing for #180 in April 2011 per Doctor Td. Klor-Con 8 mEq Tab RxNorm: 259849 1 Tablet(s) PO BID 10/02/201101/09 Inactive triamterene 75 mg-hydrochlorothiazide 50 mg tablet RxNorm: 3 18365 1 Tablet(s) PO QD 09/14/2011 03/06/2013 Inactive Ambien 10 mg Tab RxNorm: 318879 1 Tablet(s) PO QHS 09/14/2011 012 Inactive hydrocodone-acetaminophen 10 mg-325 mg Tab RxNorm: 3929217 1-2 T ablet(s) PO TID 09/14/2011 No Stop Date Active as needed for pain - Previous quantity #240, will start dosing for #180 in April 2011 per Doctor Td. alprazolam 0.5 mg Tab RxNorm: 572523 1 Tablet(s) PO BID 09/14/2011 Inactive prn Zithromax 500 mg Tab RxNorm: 3558783 1 Tablet(s) PO QD 09/13/201106/2012 Inactive prednisone 20 mg Tab RxNorm: 915470 1 Tablet(s) PO BID 08/31/2011 Inactive Ambien 10 mg Tab RxNorm: 441464 1 Tablet(s) PO QHS 08/17/2011 011 Inactive hydrocodone-acetaminophen 10 mg-325 mg Tab RxNorm: 8556408 1-2 T ablet(s) PO TID 08/17/2011 No Stop Date Active as needed for pain - Previous quantity #240, will start dosing for #180 in April 2011 per Doctor Td. clonidine 0.2 mg Tab RxNorm: 069360 1 Tablet(s) PO TID 08/17/201112/2011 Inactive Ambien 10 mg Tab RxNorm: 891922 1 Tablet(s) PO QHS 08/17/2011 019 Inactive alprazolam 0.5 mg Tab RxNorm: 184016 1 Tablet(s) PO BID 08/17/2011 Inactive prn hydrocodone-acetaminophen 10 mg-325 mg Tab RxNorm: 2017427 1-2 T ablet(s) PO TID 08/17/2011 08/16/2011 Inactive as needed for pain - Previous quantity #240, will start dosing for #180 in April 2011 per Doctor Td. Singulair 10 mg Tab RxNorm: 403803 1 Tablet(s) PO QD 08/17/201108/16 Inactive Klor-Con 8 mEq Tab RxNorm: 617450 1 Tablet(s) PO QD 08/17/20112011 Inactive alprazolam 0.5 mg Tab RxNorm: 520049 1 Tablet(s) PO BID 07/20/2011 Inactive prn Ambien 10 mg Tab RxNorm: 696494 1 Tablet(s) PO QHS 07/20/2011 012 Inactive Singulair 10 mg Tab RxNorm: 819070 1 Tablet(s) PO QD 07/20/201107/19 Inactive Premarin 1.25 mg tablet RxNorm: 975307 2 Tablet(s) PO QD 07/20/2011 0 01/21/2019 Inactive Premarin 1.25 mg tablet RxNorm: 280362 1-2 Tablet(s) PO QD 07/20/20 11 12/16/2011 Inactive Premarin 1.25 mg Tab RxNorm: 702210 1-2 Tablet(s) PO QD 07/06/2011 Inactive alprazolam 0.5 mg Tab RxNorm: 551925 1 Tablet(s) PO BID 06/22/2011 Inactive prn alprazolam 0.5 mg Tab RxNorm: 215126 1 Tablet(s) PO BID 06/22/2011 Inactive prn Premarin 1.25 mg Tab RxNorm: 992993 1 Tablet(s) PO QD m ay do 90 day fill if desired 06/22/2011 07/05/2011 Inactive hydrocodone-acetaminophen 10 mg-325 mg Tab RxNorm: 6553823 1-2 T ablet(s) PO TID 06/22/2011 No Stop Date Active as needed for pain - Previous quantity #240, will start dosing for #180 in April 2011 per Doctor Td. clonidine 0.2 mg Tab RxNorm: 264586 1 Tablet(s) PO TID 05/25/201103/2011 Inactive triamterene-hydrochlorothiazide 75 mg-50 mg Tab RxNorm: 3108 18 1 Tablet(s) PO QD 05/25/2011 09/13/2011 Inactive alprazolam 0.5 mg Tab RxNorm: 735892 1 Tablet(s) PO BID 05/25/2011 Inactive prn hydrocodone-acetaminophen 10 mg-325 mg Tab RxNorm: 2479281 1-2 T ablet(s) PO TID 05/25/2011 No Stop Date Active as needed for pain - Previous quantity #240, will start dosing for #180 in April 2011 per Doctor Td. Robaxin-750 750 mg Tab RxNorm: 280119 2 Tablet(s) PO QHS 05/22/2011 1 Inactive prn spasm hydrocodone-acetaminophen 10 mg-325 mg Tab RxNorm: 3188132 1-2 T ablet(s) PO TID 04/26/2011 No Stop Date Active as needed for pain - Previous quantity #240, will start dosing for #180 in April 2011 per Doctor Td. alprazolam 0.5 mg Tab RxNorm: 005248 1 Tablet(s) PO BID 04/25/2011 Inactive prn Klor-Con 8 mEq Tab RxNorm: 624667 1 Tablet(s) PO QD 03/30/20112010 Inactive Klor-Con 8 mEq Tab RxNorm: 350511 1 Tablet(s) PO QD 03/29/20112010 Inactive hydrocodone-acetaminophen 10 mg-325 mg Tab RxNorm: 3374956 1-2 T ablet(s) PO TID 03/20/2011 04/25/2011 Inactive as needed for pain - Previous quantity #240, will start dosing for #180 in April 2011 per Doctor Td. alprazolam 0.5 mg Tab RxNorm: 812554 1 Tablet(s) PO BID prn 011 03/30/2011 Inactive Ambien 10 mg Tab RxNorm: 565447 1 Tablet(s) PO QHS 03/01/2011 011 Inactive cyclobenzaprine 10 mg Tab RxNorm: 779925 1 Tablet(s) PO TID 011 03/18/2012 Inactive cyclobenzaprine 10 mg Tab RxNorm: 486153 1 Tablet(s) PO TID 011 01/08/2011 Inactive cyclobenzaprine 10 mg Tab RxNorm: 370219 1 Tablet(s) PO TID 011 12/20/2010 Inactive terbinafine 250 mg Tab RxNorm: 201276 1 Tablet(s) PO QD 12/12/2010 Inactive triamterene-hydrochlorothiazide 75 mg-50 mg Tab RxNorm: 3108 18 1 Tablet(s) PO QD 12/07/2010 06/04/2011 Inactive Klor-Con 8 8 mEq Tab RxNorm: 964525 1 Tablet(s) PO QD 12/07/201001/08 Inactive Premarin 1.25 mg Tab RxNorm: 752490 2 Tablet(s) PO QD 12/07/201001/08 Inactive clonidine 0.2 mg Tab RxNorm: 109469 1 Tablet(s) PO TID 12/07/2010 Inactive hydrocodone-acetaminophen 7.5 mg-650 mg Tab RxNorm: 020933 1 Ta blet(s) PO Q4H 12/05/2010 01/21/2019 Inactive hydrocodone-acetaminophen 7.5 mg-650 mg Tab RxNorm: 355057 1 Ta blet(s) PO Q4H 10/26/2010 11/14/2010 Inactive hydrocodone-acetaminophen 7.5 mg-650 mg Tab RxNorm: 400608 1 Ta blet(s) PO Q4H 10/13/2010 10/25/2010 Inactive hydrocodone-acetaminophen 7.5 mg-650 mg Tab RxNorm: 497710 1 Ta blet(s) PO Q4H 09/15/2010 09/12/2010 Inactive alprazolam 0.5 mg Tab RxNorm: 070466 1 Tablet(s) PO BID prn 011 09/12/2010 Inactive terbinafine 250 mg Tab RxNorm: 714579 1 Tablet(s) PO QD 09/05/2010 Inactive hydrocodone-acetaminophen 7.5 mg-650 mg Tab RxNorm: 219005 1 Ta blet(s) PO Q4H 08/29/2010 09/17/2010 Inactive alprazolam 0.5 mg Tab RxNorm: 605685 1 Tablet(s) PO BID prn 010 09/27/2010 Inactive alprazolam 0.5 mg Tab RxNorm: 446457 1 Tablet(s) PO BID prn 010 09/06/2010 Inactive Klor-Con 8 mEq Tab RxNorm: 086589 1 Tablet(s) PO QD 08/08/20102010 Inactive hydrocodone-acetaminophen 7.5 mg-650 mg Tab RxNorm: 430720 1 Ta blet(s) PO Q4H 08/08/2010 08/27/2010 Inactive Ambien 10 mg Tab RxNorm: 572404 1 Tablet(s) PO QHS 08/08/2010 Inactive clonidine 0.2 mg Tab RxNorm: 580515 1 Tablet(s) PO TID 08/08/2010 Inactive Premarin 1.25 mg Tab RxNorm: 924273 2 Tablet(s) PO QD 08/08/201009/12 Inactive Ambien 10 mg Tab RxNorm: 691335 1 Tablet(s) PO QHS 07/18/2010 Inactive alprazolam 0.5 mg Tab RxNorm: 633451 1 Tablet(s) PO BID prn 010 08/07/2010 Inactive hydrocodone-acetaminophen 7.5 mg-650 mg Tab RxNorm: 288007 1 Ta blet(s) PO Q4H 07/12/2010 07/31/2010 Inactive clonidine 0.2 mg Tab RxNorm: 890350 1 Tablet(s) PO TID 06/20/2010 Inactive terbinafine 250 mg Tab RxNorm: 249366 1 Tablet(s) PO QD 05/24/2010 Inactive Clonidine 0.2 mg Tab RxNorm: 975312 1 Tablet(s) PO TID 05/24/201006/2010 Inactive Ambien 10 mg Tab RxNorm: 049278 1 Tablet(s) PO QHS 05/24/2010 010 Inactive alprazolam 0.5 mg Tab RxNorm: 150558 1 Tablet(s) PO BID 05/24/2010 Inactive Klor-Con 8 mEq Tab RxNorm: 517888 1 Tablet(s) PO QD 05/24/20102009 Inactive alprazolam 0.5 mg Tab RxNorm: 088341 2 Tablet(s) PO QD prn 05/24/2007/17/2010 Inactive triamterene-hydrochlorothiazide 75 mg-50 mg Tab RxNorm: 3108 18 1 Tablet(s) PO QD 05/24/2010 11/19/2010 Inactive Ambien 10 mg Tab RxNorm: 950824 1 Tablet(s) PO QHS 05/23/2010 010 Inactive Alprazolam 0.5 mg Tab RxNorm: 127068 2 Tablet(s) PO QD prn 05/23/2005/23/2010 Inactive Premarin 1.25 mg Tab RxNorm: 256405 2 Tablet(s) PO QD 05/19/201007/12 Inactive Hydrocodone-Acetaminophen 7.5 mg-650 mg Tab RxNorm: 579522 1 Ta blet(s) PO Q4H 05/19/2010 03/20/2011 Inactive Prednisone 20 mg Tab RxNorm: 938009 1 Tablet(s) PO BID 05/17/2010 Inactive Prednisone 20 mg Tab RxNorm: 204918 1 Tablet(s) PO BID 05/06/201001/2010 Inactive Premarin 1.25 mg Tab RxNorm: 121962 Tablet(s) PO 2 -W-, and [facility] 05/05/2010 08/02/2010 Inactive Premarin 1.25 mg Tab RxNorm: 193343 Tablet(s) PO 2 M-W-F, and 1 Xr-Vq-Imw-Sun 05/04/2010 05/04/2010 Inactive Premarin 1.25 mg Tab RxNorm: 846215 Tablet(s) PO 2 M-W-F, and 1 Mk-Ll-Ttl-Sun 05/04/2010 05/03/2010 Inactive Prednisone 20 mg Tab RxNorm: 660294 1 Tablet(s) PO BID 04/27/2010 Inactive Alprazolam 0.5 mg Tab RxNorm: 024549 2 Tablet(s) PO QD prn 04/26/20 10 05/22/2010 Inactive Clindamycin 300 mg Cap RxNorm: 637095 2 Capsule(s) PO TID 04/05/2010 04/18/2010 Inactive Terbinafine 250 mg Tab RxNorm: 017281 1 Tablet(s) PO QD 04/04/2010 Inactive Hydrocodone-Acetaminophen 7.5 mg-650 mg Tab RxNorm: 052438 1 Ta blet(s) PO Q4H 03/30/2010 04/18/2010 Inactive Avelox 400 mg Tab RxNorm: 710799 1 Tablet(s) PO QD 03/09/2010 010 Inactive Hydrocodone-Acetaminophen 7.5 mg-650 mg Tab RxNorm: 540069 1 Ta blet(s) PO Q4H 03/08/2010 03/27/2010 Inactive Alprazolam 0.5 mg Tab RxNorm: 036546 2 Tablet(s) PO QD prn 03/08/20 10 04/25/2010 Inactive Klor-Con 8 mEq Tab RxNorm: 565652 1 Tablet(s) PO QD when takes lasi x 03/07/2010 08/03/2010 Inactive Premarin 1.25 mg Tab RxNorm: 095084 1 Tablet(s) PO QD 03/03/201003/11 Inactive Alprazolam 0.5 mg Tab RxNorm: 647679 1 Tablet(s) PO BID PRN 010 No Stop Date Active triamterene-hydrochlorothiazide 75 mg-50 mg Tab RxNorm: 3108 18 1 Tablet(s) PO QD 02/09/2010 02/03/2011 Inactive Hydrocodone-Acetaminophen 10 mg-750 mg Tab RxNorm: 368624 1 Tablet(s) PO Q4H PRN 02/09/2010 03/20/2011 Inactive Clonidine 0.2 mg Tab RxNorm: 308762 1 Tablet(s) PO TID 01/13/201009/2009 Inactive Alprazolam 0.5 mg Tab RxNorm: 222775 1 Tablet(s) PO BID PRN 010 01/12/2010 Inactive Hydrocodone-Acetaminophen 10 mg-750 mg Tab RxNorm: 720626 1 Tablet(s) PO Q4H PRN 01/13/2010 01/12/2010 Inactive ANGELIQ 1 mg-0.5 mg Tab RxNorm: 7271895 1 Tablet(s) PO QD 12/27/2009 01/23/2010 Inactive Lasix 40 mg Tab RxNorm: 069988 1 Tablet(s) PO QAM 12/14/2009 06/11/20 10 Inactive Vitamin B12 1000mcg Tablet RxNorm: 1 Tablet(s) PO QD No Start Date Active cyclobenzaprine 10 mg tablet RxNorm: 983904 1 Tablet(s) PO TID as needed DO NOT USE WITH BACLOFEN No Start Date Active Vitamin D 5,000 unit Tab RxNorm: 1 Tablet(s) PO QD No Start Date Active vitamin E (dl, acetate) 400 unit Cap RxNorm: 107349 1 Capsule(s ) PO QD No Start Date Active Benadryl 25 mg Cap RxNorm: 4990016 Capsule(s) PO PRN No Start Date Inactive amitriptyline 100 mg tablet RxNorm: 876632 1 Tablet(s) PO QHS No St art Date 11/27/2016 Inactive Zithromax Z-Dustin 250 mg tablet RxNorm: 300258 Tablet(s) PO as di rected No Start Date 07/22/2013 Inactive Klor-Con 8 mEq tablet,extended release RxNorm: 909052 1 Tablet( s) PO BID No Start Date 07/28/2012 Inactive scopolamine 1.5 mg 72 hr Transderm Patch RxNorm: 381329 Application TD Q72H for motion sickness No Start Date 05/25/2013 Inactive Klonopin 1 mg tablet RxNorm: 575139 1-2 Tablet(s) PO QHS as nee ded for sleep No Start Date 06/20/2015 Inactive Klor-Con M20 mEq tablet,extended release RxNorm: 854594 2 Tablet(s) PO BID to use with lasix No Start Date 11/11/2013 Inactive Bystolic 5 mg tablet RxNorm: 192511 1 Tablet(s) PO QD No Start Date 1 Inactive Bystolic 10 mg tablet RxNorm: 817521 1 Tablet(s) PO BID No Start Da te 07/06/2015 Inactive Premarin 1.25 mg Tab RxNorm: 091202 Tablet(s) PO 2 --, and 1 -Sun No Start Date 05/03/2010 Inactive baclofen 20 mg tablet RxNorm: 532876 1 Tablet(s) PO TID as needed for muscle spasm No Start Date 07/22/2015 Inactive hydrocodone-acetaminophen 7.5 mg-650 mg Tab RxNorm: 041305 1 Tablet(s) PO Q4H as needed for pain No Start Date 03/20/2011 Inactive albuterol sulfate 1.25 mg/3 mL Neb Solution RxNorm: 474706 1 Unit Dose INH Q4H 2boxes No Start Date 09/06/2015 Inactive Butrans 20 mcg/hour Transderm Patch RxNorm: 412036 1 TD WEEKLY apply to skin weekly after removing previous. No Start Date 07/22/2013 Inactive Medrol (Dustin) 4 mg tablets in a dose pack RxNorm: 120288 Tablet(s) PO As Directed No Start Date 07/30/2016 Inactive hydrocodone-acetaminophen 10 mg-325 mg Tab RxNorm: 9344316 1-2 Tablet(s) PO TID as needed for pain No Start Date 03/19/2011 Inactive Klonopin 1 mg tablet RxNorm: 218777 1 Tablet(s) PO QHS No Start Date 02/28/2016 Inactive honey topical RxNorm: topical No Start Date 06/16/2018 Inactive Clonidine 0.2 mg Tab RxNorm: 068059 1 Tablet(s) PO TID No Start Date 01/12/2010 Inactive ketorolac 10 mg tablet RxNorm: 120049 1 Tablet(s) PO Q8H No Start D ate 03/18/2012 Inactive as needed for headache Singulair 10 mg Tab RxNorm: 441917 1 Tablet(s) PO QD No Start Date Inactive Premarin 1.25 mg Tab RxNorm: 018163 1 Tablet(s) PO QD No Start Date 1 Inactive Flonase 50 mcg/Actuation Nasal [place] RxNorm: 3172198 1 [place] CECELIA AL BID No Start Date 03/18/2012 Inactive Terbinafine 250 mg Tab RxNorm: 351265 1 Tablet(s) PO QD No Start Da te 04/03/2010 Inactive Fexofenadine 180 mg Tab RxNorm: 3649765 1 Tablet(s) PO QD No Start Date 09/06/2015 Inactive baclofen 20 mg tablet RxNorm: 435107 1 Tablet(s) PO TID as needed N o Start Date 05/25/2014 Inactive Diovan 160 mg Tab RxNorm: 458121 1 Tablet(s) PO QD No Start Date 09/12 Inactive mupirocin 2 % topical ointment RxNorm: 669954 1 Application TOP QID No Start Date 04/25/2016 Inactive ZOFRAN ODT 4 mg Tab, Rapid Dissolve RxNorm: 859903 1 Tablet(s) PO Q4H No Start Date 03/18/2012 Inactive as needed for nausea and vomiting Alprazolam 0.5 mg Tab RxNorm: 005733 1 Tablet(s) PO BID PRN No Star t Date 01/12/2010 Inactive cyclobenzaprine 10 mg tablet RxNorm: 955489 1 Tablet(s) PO TID as needed for muscle spasm No Start Date 10/08/2017 Inactive Albuterol 0.083% Aerosol Solution RxNorm: 1 Appl ication INH Q4H Use one ampule every 4 hrs with nebulizer as needed for shortness of breath. No Start Date 10/09/2010 Inactive lorazepam 1 mg tablet RxNorm: 345261 1 1/2 Tablet(s) PO QHS No Star t Date 02/02/2016 Inactive Melatonin 3 mg Tab RxNorm: 698179 Tablet(s) PO PRN No Start Date 07/11 Inactive Medrol (Dustin) 4 mg Tabs in a Dose Pack RxNorm: 614111 Tablet(s) PO N o Start Date 11/28/2010 Inactive lorazepam 1 mg tablet RxNorm: 538620 1 Tablet(s) PO QHS as need ed for sleep No Start Date 01/30/2016 Inactive hydrocodone-acetaminophen 10 mg-325 mg Tab RxNorm: 0973912 1-2 Tablet(s) PO QID as needed for severe pain No Start Date 03/24/2012 Inactive celecoxib 200 mg capsule RxNorm: 342650 1 Capsule(s) PO BID No Star t Date 06/26/2019 Inactive amlodipine 5 mg-benazepril 20 mg capsule RxNorm: 310158 1 Capsu le(s) PO QD No Start Date 04/10/2017 Inactive Bystolic 20 mg tablet RxNorm: 039900 1/2 Tablet(s) PO QAM No Start Date 01/23/2016 Inactive Bystolic 20 mg tablet RxNorm: 233888 1 Tablet(s) PO QAM No Start Da te 04/25/2016 Inactive Ambien 10 mg Tab RxNorm: 898872 1 Tablet(s) PO QHS No Start Date 05/11 Inactive Klor-Con 8 mEq Tab RxNorm: 639184 1 Tablet(s) PO QD when takes lasix No Start Date 03/06/2010 Inactive aspirin 81 mg tablet RxNorm: 530681 1 Tablet(s) PO QD No Start Date 0 01/29/2018 Inactive hydrocodone-acetaminophen 10 mg-325 mg Tab RxNorm: 2726025 1-2 T ablet(s) PO QID No Start Date 01/10/2012 Inactive Bystolic 10 mg tablet RxNorm: 309938 1 Tablet(s) PO QAM take one daily in the morning. No Start Date 05/28/2013 Inactive nystatin 100,000 unit/mL Oral Susp RxNorm: 268550 5 Milliliter( s) PO QID No Start Date 03/18/2012 Inactive swish and spit scopolamine 1.5 mg 72 hr Transderm Patch RxNorm: 892342 1 Unit Dose TD Q72H for motion sickness No Start Date 12/23/2013 Inactive Hydrocodone-Acetaminophen 10 mg-750 mg Tab RxNorm: 390052 1 Tablet(s) PO Q4H PRN No Start Date 01/12/2010 Inactive Soma 350 mg tablet RxNorm: 296389 1 Tablet(s) PO TID as needed for spasm No Start Date 01/12/2013 Inactive baclofen 10 mg tablet RxNorm: 969920 1 Tablet(s) PO TID as needed for muscle spasm No Start Date 09/18/2019 Inactive Soma 350 mg Tab RxNorm: 670474 1 Tablet(s) PO TID for spasm No Star t Date 01/31/2012 Inactive Co Q-10 400 mg capsule RxNorm: 534239 1 Capsule(s) PO QD No Start D ate 01/21/2019 Inactive nystatin 100,000 unit/gram topical cream RxNorm: 082360 Applica tion TOP BID No Start Date 03/22/2015 Inactive Exforge 5 mg-160 mg Tab RxNorm: 165133 1 Tablet(s) PO QD No Start D ate 10/09/2010 Inactive Hydrocodone-Acetaminophen 7.5 mg-650 mg Tab RxNorm: 406590 1 Ta blet(s) PO Q4H No Start Date 03/07/2010 Inactive Robaxin-750 750 mg Tab RxNorm: 189367 1-2 Tablet(s) PO TID prn spasm No Start Date 05/21/2011 Inactive amlodipine 5 mg tablet RxNorm: 522074 1 Tablet(s) PO QHS No Start D ate 09/29/2015 Inactive oxycodone-acetaminophen 10 mg-325 mg tablet RxNorm: 3227114 1-2 Tablet(s) PO Q6H No Start Date 06/16/2018 Inactive Triamterene-Hydrochlorothiazide 75 mg-50 mg Tab RxNorm: 3108 18 1 Tablet(s) PO QD No Start Date 02/08/2010 Inactive Alprazolam 0.5 mg Tab RxNorm: 546291 2 Tablet(s) PO QD prn No Start Date 03/07/2010 Inactive Bystolic 20 mg tablet RxNorm: 283978 1 Tablet(s) PO QAM No Start Da te 08/17/2015 Inactive ketorolac 10 mg tablet RxNorm: 840440 1 Tablet(s) PO QID prn he adache No Start Date 07/17/2012 Inactive acyclovir 800 mg Tab RxNorm: 871335 1 Tablet(s) PO BID No Start Date 03/18/2012 Inactive duloxetine 60 mg capsule,delayed release RxNorm: 889784 1 Capsu le(s) PO QD No Start Date 09/29/2015 Inactive Norvasc 5 mg tablet RxNorm: 313702 1 Tablet(s) PO QHS No Start Date 1 10/18/2014 Inactive promethazine 25 mg tablet RxNorm: 305341 1 Tablet(s) PO Q8H use sparingly No Start Date 07/22/2013 Inactive alprazolam 0.5 mg tablet RxNorm: 342244 3 Tablet(s) PO QHS No Start Date 06/06/2015 Inactive Lunesta 3 mg tablet RxNorm: 859469 1 Tablet(s) PO QHS No Start Date 0 09/20/2017 Inactive hydrocodone-acetaminophen 10 mg-325 mg Tab RxNorm: 0044862 1-2 Tablet(s) PO TID as needed for pain No Start Date 12/10/2011 Inactive Coricidin HBP Cough & Cold 4 mg-30 mg Tab RxNorm: 3228123 Tablet (s) PO PRN No Start Date 10/09/2010 Inactive Bactroban 2 % Ointment RxNorm: 436243 Application TOP QID to so res No Start Date 02/22/2012 Inactive Flonase 50 mcg/actuation Nasal [place] RxNorm: 831260 2 [place] QHS No Start Date 03/03/2014 Inactive Medication Administered No Medication Administered data Immunizations Vaccine Codes Date Status Tetanus, Diptheria, Pertussis CVX: 115 02/27/2014 Results Observation Observation Code Item Item Code Result Date [facility] Location COMPLETE BLOOD COUNT [id number] WBC 10.7 10e9/L 018 Unknown COMPLETE BLOOD COUNT [id number] RBC 4.59 10e12/L 2017 Unknown COMPLETE BLOOD COUNT [id number] HEMOGLOBIN 14.8 g/dL 12/11/19 18 Unknown COMPLETE BLOOD COUNT [id number] HEMATOCRIT 44.9 % 12/11/19 18 Unknown COMPLETE BLOOD COUNT [id number] MCV 97.8 fL 8 Unknown COMPLETE BLOOD COUNT 3957047 MCH 32.2 pg 8 Unknown COMPLETE BLOOD COUNT 3161749 MCHC 33.0 g/dL 8 Unknown COMPLETE BLOOD COUNT [id number] PLATELET COUNT 261 10e9/L 10/2017 Unknown COMPLETE BLOOD COUNT 6690031 Mean Plt Volume 9.5 fL 10/2017 Unknown COMPLETE BLOOD COUNT 0267318 Neut Auto 59.9 % 8 Unknown COMPLETE BLOOD COUNT 7239471 Lymph Auto 27.4 % 12/11/19 18 Unknown COMPLETE BLOOD COUNT 2109637 [place] Auto 8.2 % 8 Unknown COMPLETE BLOOD COUNT 7322271 RDW 13.3 % 8 Unknown COMPLETE BLOOD COUNT 0373791 Eos Auto 4.1 % 8 Unknown COMPLETE BLOOD COUNT 8824989 Baso Auto 0.4 % 8 Unknown COMPLETE BLOOD COUNT 1520913 Neutrophil Abs 6.41 10e9/L Unknown COMPLETE BLOOD COUNT [id number] Lymphocyte Abs 2.93 10e9/L Unknown COMPLETE BLOOD COUNT [id number] Monocyte Abs 0.88 10e9/L 10/2017 Unknown COMPLETE BLOOD COUNT 8359688 Eosinophil Abs 0.44 10e9/L Unknown COMPLETE BLOOD COUNT 3633835 RDW-SD 46.2 fL 8 Unknown COMPLETE BLOOD COUNT 5137112 Basophil Abs 0.04 10e9/L 10/2017 Unknown THYROID STIMULATING HORMONE 42027 TSH 4.015 uIU/mL 12/10/2017 Unknown COMPREHENSIVE METABOLIC 27424 AST 25 U/L 2017 Unknown COMPREHENSIVE METABOLIC 26285 ALT 17 U/L 2017 Unknown COMPREHENSIVE METABOLIC 17479 BUN 19 mg/dL 2017 Unknown COMPREHENSIVE METABOLIC 37711 ALBUMIN 4.0 g/dL 2017 Unknown COMPREHENSIVE METABOLIC 97804 CHLORIDE 91 mmol/L 2017 Unknown COMPREHENSIVE METABOLIC 74283 Bili Total 0.5 mg/dL 12/10 Unknown COMPREHENSIVE METABOLIC 44039 ALK PHOS 75 U/L 2017 Unknown COMPREHENSIVE METABOLIC 18634 SODIUM 136 mmol/L 12/10 Unknown COMPREHENSIVE METABOLIC 22030 CREATININE 1.05 mg/dL 10/2017 Unknown COMPREHENSIVE METABOLIC 37625 CALCIUM 8.9 mg/dL 2017 Unknown COMPREHENSIVE METABOLIC 08058 POTASSIUM 3.4 mmol/L 12/10 Unknown COMPREHENSIVE METABOLIC 13654 Total Protein 6.5 g/dL Unknown COMPREHENSIVE METABOLIC 10908 Glucose 138 mg/dL 2017 Unknown COMPREHENSIVE METABOLIC 38292 Bicarbonate 35 mmol/L 10/2017 Unknown COMPREHENSIVE METABOLIC 94769 AGAP 10 mmol/L 2017 Unknown MEAN GLUC 0262129 Calc Mean Gluc 171 mg/dL 12/10/2017 Unkn own [facility] 94725 Cholesterol 204 mg/dL 12/10/2017 Unkno wn LIPID GROUP 77320 Triglyceride 411 mg/dL 12/10/2017 Unkn own LIP[facility] GROUP 25888 HDL CHOLESTEROL 50 mg/dL 12/10/2017 U nknown LIPID GROUP 64149 Chol/HDL Ratio 4.08 ratio 12/10/2017 U nknown LIPID GROUP 40953 NON-HDL Chol 154 mg/dL 12/10/2017 Unkn own LIPID GROUP 33069 LDL Cholesterol N/A Trig >400 018 Unknown GLYCOSYLATED HEMOGLOBIN TEST 31835 Hgb A1c 24662-2 7.6 % 0 12/10/2017 Unknown FREE T4 08730 T4 Free 1.40 ng/dL 12/10/2017 Unknown GFR CALC 9607949 GFR Non Afr Amr 55 mL/min 12/10/2017 Unk nown GFR CALC 2866684 GFR Afr Amr >60 mL/min 12/10/2017 Unknow n GFR CALC 5182890 GFR Non Afr Amr 48 mL/min 06/28/2017 Unk nown GFR CALC 8971014 GFR Afr Amr 59 mL/min 06/28/2017 Unknown COMPREHENSIVE METABOLIC 24690 AST 32 U/L 2016 Unknown COMPREHENSIVE METABOLIC 09149 ALT 22 U/L 2016 Unknown COMPREHENSIVE METABOLIC 53435 BUN 23 mg/dL 2016 Unknown COMPREHENSIVE METABOLIC 97999 ALBUMIN 4.7 g/dL 2016 Unknown COMPREHENSIVE METABOLIC 48410 CHLORIDE 89 mmol/L 2016 Unknown COMPREHENSIVE METABOLIC 66180 Bili Total 0.5 mg/dL 06/28 Unknown COMPREHENSIVE METABOLIC 10250 ALK PHOS 90 U/L 2016 Unknown COMPREHENSIVE METABOLIC 04577 SODIUM 135 mmol/L 06/28 Unknown COMPREHENSIVE METABOLIC 92699 CREATININE 1.18 mg/dL 06/10 Unknown COMPREHENSIVE METABOLIC 22163 CALCIUM 9.7 mg/dL 2016 Unknown COMPREHENSIVE METABOLIC 00290 POTASSIUM 3.5 mmol/L 06/28 Unknown COMPREHENSIVE METABOLIC 12870 Total Protein 7.7 g/dL Unknown COMPREHENSIVE METABOLIC 30527 Glucose 129 mg/dL 2016 Unknown COMPREHENSIVE METABOLIC 73157 Bicarbonate 34 mmol/L 06/10 Unknown COMPREHENSIVE METABOLIC 16014 AGAP 12 mmol/L 2016 Unknown LIPID GROUP 18938 HDL TEST 64 MG/DL 08/27/2014 Unknown LIPID GROUP 94007 TRIG 222 MG/DL 08/27/2014 Unknown LIPID GROUP 09703 TEST LDL 209 MG/DL 08/27/2014 Unknown LIPID GROUP 94976 CHOL 317 MG/DL 08/27/2014 Unknown LIPID GROUP 18819 RCHOL/HDL 4.95 RATIO 08/27/2014 Unknow n LIPID GROUP 95292 NON-HDL CH 253 MG/DL 08/27/2014 Unknow n GFR CALC 6006686 GFR AA >60 ML/MIN 08/27/2014 Unknown GFR CALC 0366979 GFR NON-AA >60 ML/MIN 08/27/2014 Unknown COMPLETE BLOOD COUNT 4703778 WBC 7.0 10e9/L 08/27/20 14 Unknown COMPLETE BLOOD COUNT 1770606 RBC 4.98 10e12/L 2013 Unknown COMPLETE BLOOD COUNT 9637150 HGB 15.6 g/dL 4 Unknown COMPLETE BLOOD COUNT 1725147 HCT DET 46.5 % 4 Unknown COMPLETE BLOOD COUNT 8855851 MCV 93.4 fL 4 Unknown COMPLETE BLOOD COUNT 4640896 MCH 31.3 pg 4 Unknown COMPLETE BLOOD COUNT 4140062 MCHC 33.5 g/dL 4 Unknown COMPLETE BLOOD COUNT 7634603 PLT 309 10e9/L 08/27/20 14 Unknown COMPLETE BLOOD COUNT 4020503 MPV 9.6 fL 4 Unknown COMPLETE BLOOD COUNT 0486434 CADEN % 57.2 % 4 Unknown COMPLETE BLOOD COUNT 9313640 LY % 33.2 % 4 Unknown COMPLETE BLOOD COUNT 9198541 MON % 7.3 % 4 Unknown COMPLETE BLOOD COUNT 5343734 EOS % 2.0 % 4 Unknown COMPLETE BLOOD COUNT 8830955 BASO % 0.3 % 4 Unknown COMPLETE BLOOD COUNT 5261673 RDW 13.7 % 4 Unknown COMPLETE BLOOD COUNT [id number] ABS CADEN 4.00 10e9/L 014 Unknown COMPLETE BLOOD COUNT 2970185 ABS LYMPH 2.32 10e9/L 014 Unknown COMPLETE BLOOD COUNT 3044492 ABS MONO 0.51 10e9/L 014 Unknown COMPLETE BLOOD COUNT [id number] ABS EOS 0.14 10e9/L 014 Unknown COMPLETE BLOOD COUNT 7505203 ABS BASO 0.02 10e9/L 014 Unknown COMPLETE BLOOD COUNT 9956166 RDW-SD 45.1 fL 4 Unknown COMPREHENSIVE METABOLIC 37548 AST 13 U/L 2013 Unknown COMPREHENSIVE METABOLIC 92838 ALT 11 IU/L 2013 Unknown COMPREHENSIVE METABOLIC 28369 BUN 23 MG/DL 2013 Unknown COMPREHENSIVE METABOLIC 26869 ALBUMIN 4.4 GM/DL 2013 Unknown COMPREHENSIVE METABOLIC 27518 CHLORIDE 99 MMOL/L 2013 Unknown COMPREHENSIVE METABOLIC 31556 BILI TOT 0.5 MG/DL 2013 Unknown COMPREHENSIVE METABOLIC 07931 ALK PHOS 56 U/L 2013 Unknown COMPREHENSIVE METABOLIC 21906 SODIUM 138 MMOL/L 08/27 Unknown COMPREHENSIVE METABOLIC 11930 CREATININE 0.95 MG/DL 08/10 Unknown COMPREHENSIVE METABOLIC 83941 CALCIUM 9.8 MG/DL 2013 Unknown COMPREHENSIVE METABOLIC 32713 POTASSIUM 3.5 MMOL/L 08/27 Unknown COMPREHENSIVE METABOLIC 75361 PROT TOT 6.8 GM/DL 2013 Unknown COMPREHENSIVE METABOLIC 13335 Glucose 90 MG/DL 2013 Unknown COMPREHENSIVE METABOLIC 03807 BICARB 34 MMOL/L 2013 Unknown COMPREHENSIVE METABOLIC 15795 ANION GAP 5 MEQ/L 2013 Unknown LIPASE 00937 LIPASE 11 IU/L 07/21/2014 Unknown AMYLASE 11929 AMYLASE 39 IU/L 07/21/2014 Unknown HEMOGLOBIN A1C (GLYCOSYLATED) 8489547 A1C HPLC 60405-6 6.2 % 03/05/2013 Unknown THYROID STIMULATING HORMONE 11638 TSH 6.986 uIU/ML 03/05/2013 Unknown COMPLETE BLOOD COUNT 3006824 WBC 12.7 10e9/L 013 Unknown COMPLETE BLOOD COUNT 4244376 RBC 4.53 10e12/L 2012 Unknown COMPLETE BLOOD COUNT 2800560 HGB 14.7 g/dL 3 Unknown COMPLETE BLOOD COUNT 9544008 HCT DET 43.1 % 3 Unknown COMPLETE BLOOD COUNT 4666188 MCV 95.1 fL 3 Unknown COMPLETE BLOOD COUNT 9108332 MCH 32.5 pg 3 Unknown COMPLETE BLOOD COUNT 6538388 MCHC 34.1 g/dL 3 Unknown COMPLETE BLOOD COUNT 7429615 PLT 346 10e9/L 03/05/20 13 Unknown COMPLETE BLOOD COUNT 6101132 MPV 9.5 fL 3 Unknown COMPLETE BLOOD COUNT 9450413 CADEN % 67.6 % 3 Unknown COMPLETE BLOOD COUNT 3551548 LY % 22.1 % 3 Unknown COMPLETE BLOOD COUNT 3081760 MON % 6.6 % 3 Unknown COMPLETE BLOOD COUNT 5927520 EOS % 3.3 % 3 Unknown COMPLETE BLOOD COUNT 0976891 BASO % 0.4 % 3 Unknown COMPLETE BLOOD COUNT 2565969 RDW 14.0 % 3 Unknown COMPLETE BLOOD COUNT 7730555 ABS CADEN 8.59 10e9/L 013 Unknown COMPLETE BLOOD COUNT 6228489 ABS LYMPH 2.81 10e9/L 013 Unknown COMPLETE BLOOD COUNT 2581836 ABS MONO 0.84 10e9/L 013 Unknown COMPLETE BLOOD COUNT 9931349 ABS EOS 0.42 10e9/L 013 Unknown COMPLETE BLOOD COUNT 9393529 ABS BASO 0.05 10e9/L 013 Unknown COMPLETE BLOOD COUNT 0279393 RDW-SD 46.0 fL 3 Unknown FREE T4 01597 FREE T4 1.14 NG/DL 03/05/2013 Unknown COMPREHENSIVE METABOLIC 63873 AST 17 U/L 2012 Unknown COMPREHENSIVE METABOLIC 27996 ALT 12 IU/L 2012 Unknown COMPREHENSIVE METABOLIC 58249 BUN 24 MG/DL 2012 Unknown COMPREHENSIVE METABOLIC 16141 ALBUMIN 4.2 GM/DL 2012 Unknown COMPREHENSIVE METABOLIC 06017 CHLORIDE 93 MMOL/L 2012 Unknown COMPREHENSIVE METABOLIC 54964 BILI TOT 0.5 MG/DL 2012 Unknown COMPREHENSIVE METABOLIC 81870 ALK PHOS 75 U/L 2012 Unknown COMPREHENSIVE METABOLIC 01516 SODIUM 141 MMOL/L 03/05 Unknown COMPREHENSIVE METABOLIC 74150 CREATININE 1.36 MG/DL 02/09 Unknown COMPREHENSIVE METABOLIC 37111 CALCIUM 9.2 MG/DL 2012 Unknown COMPREHENSIVE METABOLIC 71540 POTASSIUM 3.1 MMOL/L 03/05 Unknown COMPREHENSIVE METABOLIC 01811 PROT TOT 6.9 GM/DL 2012 Unknown COMPREHENSIVE METABOLIC 03234 Glucose 123 MG/DL 2012 Unknown COMPREHENSIVE METABOLIC 29544 BICARB 36 MMOL/L 2012 Unknown COMPREHENSIVE METABOLIC 00116 ANION GAP 12 MEQ/L 2012 Unknown GFR CALC 3947408 GFR AA 51.0L ML/MIN 03/05/2013 Unknow n GFR CALC 0996042 GFR NON-AA 42.0L ML/MIN 03/05/2013 Unkno wn COMPREHENSIVE METABOLIC 63181 AST 14 U/L 2012 Unknown COMPREHENSIVE METABOLIC 14723 ALT 11 IU/L 2012 Unknown COMPREHENSIVE METABOLIC 23233 BUN 16 MG/DL 2012 Unknown COMPREHENSIVE METABOLIC 88543 ALBUMIN 4.2 GM/DL 2012 Unknown COMPREHENSIVE METABOLIC 24541 CHLORIDE 98 MMOL/L 2012 Unknown COMPREHENSIVE METABOLIC 65306 BILI TOT 0.4 MG/DL 2012 Unknown COMPREHENSIVE METABOLIC 02120 ALK PHOS 77 U/L 2012 Unknown COMPREHENSIVE METABOLIC 68562 SODIUM 139 MMOL/L 09/25 Unknown COMPREHENSIVE METABOLIC 62290 CREATININE 0.86 MG/DL 09/10 Unknown COMPREHENSIVE METABOLIC 02198 CALCIUM 9.5 MG/DL 2012 Unknown COMPREHENSIVE METABOLIC 18164 POTASSIUM 3.8 MMOL/L 09/25 Unknown COMPREHENSIVE METABOLIC 37508 PROT TOT 6.8 GM/DL 2012 Unknown COMPREHENSIVE METABOLIC 40578 Glucose 91 MG/DL 2012 Unknown COMPREHENSIVE METABOLIC 46858 BICARB 32 MMOL/L 2012 Unknown COMPREHENSIVE METABOLIC 63700 ANION GAP 9 MEQ/L 2012 Unknown FREE T4 04319 FREE T4 0.98 NG/DL 09/25/2012 Unknown THYROID STIMULATING HORMONE 13873 TSH 1.736 uIU/ML 09/25/2012 Unknown C-REACTIVE PROTEIN (CRP) QUANT 59057 CRP 2.3 MG/DL 09/25/2012 Unknown COMPLETE BLOOD COUNT [id number] WBC 11.9 10e9/L 013 Unknown COMPLETE BLOOD COUNT [id number] RBC 4.87 10e12/L 2012 Unknown COMPLETE BLOOD COUNT 2810446 HGB 15.1 g/dL 3 Unknown COMPLETE BLOOD COUNT 3706708 HCT DET 44.8 % 3 Unknown COMPLETE BLOOD COUNT 3212456 MCV 92.0 fL 3 Unknown COMPLETE BLOOD COUNT 5187395 MCH 31.0 pg 3 Unknown COMPLETE BLOOD COUNT 5640361 MCHC 33.7 g/dL 3 Unknown COMPLETE BLOOD COUNT 4952942 PLT 343 10e9/L 09/25/19 13 Unknown COMPLETE BLOOD COUNT 4877452 MPV 9.0 fL 3 Unknown COMPLETE BLOOD COUNT 7866185 CADEN % 68.2 % 3 Unknown COMPLETE BLOOD COUNT 0784108 LY % 22.4 % 3 Unknown COMPLETE BLOOD COUNT 5102111 MON % 6.4 % 3 Unknown COMPLETE BLOOD COUNT 4608397 EOS % 2.7 % 3 Unknown COMPLETE BLOOD COUNT 8646777 BASO % 0.3 % 3 Unknown COMPLETE BLOOD COUNT 2541380 RDW 13.8 % 3 Unknown COMPLETE BLOOD COUNT [id number] ABS CADEN 8.12 10e9/L 013 Unknown COMPLETE BLOOD COUNT 3267152 ABS LYMPH 2.67 10e9/L 013 Unknown COMPLETE BLOOD COUNT 0668950 ABS MONO 0.76 10e9/L 013 Unknown COMPLETE BLOOD COUNT 6194538 ABS EOS 0.32 10e9/L 013 Unknown COMPLETE BLOOD COUNT 1736891 ABS BASO 0.04 10e9/L 013 Unknown COMPLETE BLOOD COUNT 1422560 RDW-SD 45.6 fL 3 Unknown GFR CALC 4147219 GFR AA >60 ML/MIN 09/25/2012 Unknown GFR CALC 8452910 GFR NON-AA >60 ML/MIN 09/25/2012 Unknown ERYTHROCYTE SEDIMENTATION RATE 92332 ESR 19 MM/HR 05/06/2012 Unknown VITAMIN B 12 FOLIC ACID 84366|51492 VIT B 12 922 PG/ML 04/11 Unknown VITAMIN B 12 FOLIC ACID 60301|95957 FOLIC ACID 13.6 NG/ML Unknown URIC ACID 71437 URIC ACID 7.8 MG/DL 05/06/2012 Unknown COMPLETE BLOOD COUNT 60224 WBC 11.9 10e9/L 012 Unknown COMPLETE BLOOD COUNT 06242 RBC 5.30 10e12/L 2011 Unknown COMPLETE BLOOD COUNT 05854 HGB 16.6 g/dL 2 Unknown COMPLETE BLOOD COUNT 95651 HCT DET 47.2 % 2 Unknown COMPLETE BLOOD COUNT 77902 MCV 89.1 fL 2 Unknown COMPLETE BLOOD COUNT 08353 MCH 31.3 pg 2 Unknown COMPLETE BLOOD COUNT 91779 MCHC 35.2 g/dL 2 Unknown COMPLETE BLOOD COUNT 57188 PLT 362 10e9/L 05/06/20 12 Unknown COMPLETE BLOOD COUNT 79484 MPV 9.4 fL 2 Unknown COMPLETE BLOOD COUNT 43194 CADEN % 68.2 % 2 Unknown COMPLETE BLOOD COUNT 31414 LY % 22.0 % 2 Unknown COMPLETE BLOOD COUNT 56879 MON % 6.9 % 2 Unknown COMPLETE BLOOD COUNT 69271 EOS % 2.6 % 2 Unknown COMPLETE BLOOD COUNT 75006 BASO % 0.3 % 2 Unknown COMPLETE BLOOD COUNT 17919 RDW 12.8 % 2 Unknown COMPLETE BLOOD COUNT 12471 ABS CADEN 8.12 10e9/L 012 Unknown COMPLETE BLOOD COUNT 82278 ABS LYMPH 2.62 10e9/L 012 Unknown COMPLETE BLOOD COUNT 61402 ABS MONO 0.82 10e9/L 012 Unknown COMPLETE BLOOD COUNT 34421 ABS EOS 0.31 10e9/L 012 Unknown COMPLETE BLOOD COUNT 59662 ABS BASO 0.04 10e9/L 012 Unknown COMPLETE BLOOD COUNT 40790 RDW-SD 41.5 fL 2 Unknown GFR CALC 9213645 GFR AA >60 ML/MIN 05/06/2012 Unknown GFR CALC 7770535 GFR NON-AA 58.0L ML/MIN 05/06/2012 Unkno wn FREE T4 53970 FREE T4 1.15 NG/DL 05/06/2012 Unknown THYROID STIMULATING HORMONE 36100 TSH 1.568 uIU/ML 05/06/2012 Unknown COMPREHENSIVE METABOLIC 74016 AST 20 U/L 2011 Unknown COMPREHENSIVE METABOLIC 02964 ALT 12 IU/L 2011 Unknown COMPREHENSIVE METABOLIC 91716 BUN 20 MG/DL 2011 Unknown COMPREHENSIVE METABOLIC 72547 ALBUMIN 4.5 GM/DL 2011 Unknown COMPREHENSIVE METABOLIC 01714 CHLORIDE 91 MMOL/L 2011 Unknown COMPREHENSIVE METABOLIC 02774 BILI TOT 0.4 MG/DL 2011 Unknown COMPREHENSIVE METABOLIC 88470 ALK PHOS 73 U/L 2011 Unknown COMPREHENSIVE METABOLIC 10673 SODIUM 139 MMOL/L 05/06 Unknown COMPREHENSIVE METABOLIC 51728 CREATININE 1.02 MG/DL 04/11 Unknown COMPREHENSIVE METABOLIC 49956 CALCIUM 9.7 MG/DL 2011 Unknown COMPREHENSIVE METABOLIC 07792 POTASSIUM 3.1 MMOL/L 05/06 Unknown COMPREHENSIVE METABOLIC 92670 PROT TOT 7.3 GM/DL 2011 Unknown COMPREHENSIVE METABOLIC 77472 Glucose 118 MG/DL 2011 Unknown COMPREHENSIVE METABOLIC 19455 BICARB 33 MMOL/L 2011 Unknown COMPREHENSIVE METABOLIC 12208 ANION GAP 15 MEQ/L 2011 Unknown Procedures Procedure Codes Date URINALYSIS NONAUTO W/O SCOPE CPT-4: 57025 09/30/2018 MICROALBUMIN QUANTITATIVE CPT-4: 79916 09/30/2018 CEFTRIAXONE SODIUM INJECTION CPT-4: J0696 06/19/2018 THER/PROPH/DIAG INJ SC/IM CPT-4: 68600 06/19/2018 CEFTRIAXONE SODIUM INJECTION CPT-4: J0696 06/17/2018 THER/PROPH/DIAG INJ SC/IM CPT-4: 54323 06/17/2018 THER/PROPH/DIAG INJ SC/IM CPT-4: 34582 05/16/2018 KETOROLAC TROMETHAMINE INJ CPT-4: J1885 05/16/2018 ONDANSETRON HCL INJECTION CPT-4: J2405 05/16/2018 THER/PROPH/DIAG INJ SC/IM CPT-4: 68432 05/16/2018 ROUTINE VENIPUNCTURE CPT-4: 71739 03/20/2018 COMPREHEN METABOLIC PANEL CPT-4: 89991 03/20/2018 DEXAMETHASONE SODIUM PHOS CPT-4: J1100 02/11/2018 THER/PROPH/DIAG INJ SC/IM CPT-4: 69791 02/11/2018 TRIAMCINOLONE ACET INJ NOS CPT-4: J3301 02/11/2018 CEFTRIAXONE SODIUM INJECTION CPT-4: J0696 02/01/2018 THER/PROPH/DIAG INJ SC/IM CPT-4: 47503 02/01/2018 CEFTRIAXONE SODIUM INJECTION CPT-4: J0696 01/30/2018 THER/PROPH/DIAG INJ SC/IM CPT-4: 30834 01/30/2018 ROUTINE VENIPUNCTURE CPT-4: 65558 12/10/2017 ASSAY OF FREE THYROXINE CPT-4: 61099 12/10/2017 ASSAY THYROID STIM HORMONE CPT-4: 68518 12/10/2017 COMPREHEN METABOLIC PANEL CPT-4: 60084 12/10/2017 COMPLETE CBC W/AUTO DIFF WBC CPT-4: 91590 12/10/2017 LIPID PANEL CPT-4: 75339 12/10/2017 A1C HPLC CPT-4: 29259 12/10/2017 CEFTRIAXONE SODIUM INJECTION CPT-4: J0696 12/10/2017 THER/PROPH/DIAG INJ SC/IM CPT-4: 48583 12/10/2017 CEFTRIAXONE SODIUM INJECTION CPT-4: J0696 12/07/2017 THER/PROPH/DIAG INJ SC/IM CPT-4: 54655 12/07/2017 DEXAMETHASONE SODIUM PHOS CPT-4: J1100 12/07/2017 THER/PROPH/DIAG INJ SC/IM CPT-4: 63782 12/07/2017 CEFTRIAXONE SODIUM INJECTION CPT-4: J0696 10/08/2017 THER/PROPH/DIAG INJ SC/IM CPT-4: 80598 10/08/2017 CEFTRIAXONE SODIUM INJECTION CPT-4: J0696 09/21/2017 THER/PROPH/DIAG INJ SC/IM CPT-4: 53213 09/21/2017 CEFTRIAXONE SODIUM INJECTION CPT-4: J0696 09/20/2017 THER/PROPH/DIAG INJ SC/IM CPT-4: 78857 09/20/2017 REMOVAL OF NAIL PLATE CPT-4: 27294 08/29/2017 THER/PROPH/DIAG INJ SC/IM CPT-4: 97077 08/29/2017 TRIAMCINOLONE ACET INJ NOS CPT-4: J3301 08/29/2017 CEFTRIAXONE SODIUM INJECTION CPT-4: J0696 08/29/2017 THER/PROPH/DIAG INJ SC/IM CPT-4: 69853 08/29/2017 DESTRUCT PREMALG LESION (Cryosurgery) CPT-4: 83974 ROUTINE VENIPUNCTURE CPT-4: 24942 06/27/2017 ASSAY OF FREE THYROXINE CPT-4: 41241 06/27/2017 ASSAY THYROID STIM HORMONE CPT-4: 52074 06/27/2017 COMPREHEN METABOLIC PANEL CPT-4: 53882 06/27/2017 COMPLETE CBC W/AUTO DIFF WBC CPT-4: 27215 06/27/2017 EXC TR-EXT B9+REECE 0.5 CM< CPT-4: 89153 01/24/2017 THER/PROPH/DIAG INJ SC/IM CPT-4: 79459 08/02/2016 DEXAMETHASONE SODIUM PHOS CPT-4: J1100 08/02/2016 DESTRUCT PREMALG LESION (Cryosurgery) CPT-4: 20532 EXC TR-EXT B9+REECE 0.5 CM< CPT-4: 86069 08/01/2016 AEROBIC WOUND CULTURE & STN CPT-4: 30771 07/06/2016 CEFTRIAXONE SODIUM INJECTION CPT-4: J0696 05/25/2016 THER/PROPH/DIAG INJ SC/IM CPT-4: 40953 05/25/2016 THER/PROPH/DIAG INJ SC/IM CPT-4: 34346 04/26/2016 DEXAMETHASONE SODIUM PHOS CPT-4: J1100 04/26/2016 CEFTRIAXONE SODIUM INJECTION CPT-4: J0696 04/26/2016 THER/PROPH/DIAG INJ SC/IM CPT-4: 30969 04/26/2016 THER/PROPH/DIAG INJ SC/IM CPT-4: 45877 02/09/2016 TRIAMCINOLONE ACET INJ NOS CPT-4: J3301 02/09/2016 URINALYSIS NONAUTO W/O SCOPE CPT-4: 10131 01/24/2016 URINE CULTURE/ COLONY COUNT CPT-4: 41737 01/24/2016 THER/PROPH/DIAG INJ SC/IM CPT-4: 78081 12/08/2015 TRIAMCINOLONE ACET INJ NOS CPT-4: J3301 12/08/2015 THER/PROPH/DIAG INJ SC/IM CPT-4: 38174 10/07/2015 TRIAMCINOLONE ACET INJ NOS CPT-4: J3301 10/07/2015 DESTRUCT PREMALG LESION (Cryosurgery) CPT-4: 73070 THER/PROPH/DIAG INJ SC/IM CPT-4: 53205 03/16/2015 METHYLPREDNISOLONE 40 MG INJ CPT-4: J1030 03/16/2015 DESTRUCT PREMALG LESION (Cryosurgery) CPT-4: 78859 THER/PROPH/DIAG INJ SC/IM CPT-4: 88352 09/11/2014 METHYLPREDNISOLONE 40 MG INJ CPT-4: J1030 09/11/2014 TRIAMCINOLONE ACET INJ NOS CPT-4: J3301 09/11/2014 CEFTRIAXONE SODIUM INJECTION CPT-4: J0696 09/11/2014 THER/PROPH/DIAG INJ SC/IM CPT-4: 17388 09/11/2014 ROUTINE VENIPUNCTURE CPT-4: 82530 08/27/2014 COMPREHEN METABOLIC PANEL CPT-4: 33175 08/27/2014 COMPLETE CBC W/AUTO DIFF WBC CPT-4: 11967 08/27/2014 LIPID PANEL CPT-4: 96612 08/27/2014 ROUTINE VENIPUNCTURE CPT-4: 46920 07/21/2014 ASSAY OF AMYLASE CPT-4: 52233 07/21/2014 ASSAY OF LIPASE CPT-4: 40822 07/21/2014 THER/PROPH/DIAG INJ SC/IM CPT-4: 73121 07/15/2014 TRIAMCINOLONE ACET INJ NOS CPT-4: J3301 07/15/2014 ROUTINE VENIPUNCTURE CPT-4: 18235 05/14/2014 ASSAY OF FREE THYROXINE CPT-4: 10336 05/14/2014 ASSAY THYROID STIM HORMONE CPT-4: 33708 05/14/2014 COMPREHEN METABOLIC PANEL CPT-4: 75510 05/14/2014 COMPLETE CBC W/AUTO DIFF WBC CPT-4: 62227 05/14/2014 LIPID PANEL CPT-4: 91377 05/14/2014 CEFTRIAXONE SODIUM INJECTION CPT-4: J0696 04/21/2014 THER/PROPH/DIAG INJ SC/IM CPT-4: 50272 04/21/2014 THER/PROPH/DIAG INJ SC/IM CPT-4: 07292 04/21/2014 TRIAMCINOLONE ACET INJ NOS CPT-4: J3301 04/21/2014 THER/PROPH/DIAG INJ SC/IM CPT-4: 81823 03/04/2014 METHYLPREDNISOLONE 40 MG INJ CPT-4: J1030 03/04/2014 TRIAMCINOLONE ACET INJ NOS CPT-4: J3301 03/04/2014 CEFTRIAXONE SODIUM INJECTION CPT-4: J0696 03/04/2014 THER/PROPH/DIAG INJ SC/IM CPT-4: 08056 03/04/2014 TDAP VACCINE 7 YRS/> IM CPT-4: 90106 02/27/2014 IMMUNIZATION ADMIN CPT-4: 89440 02/27/2014 DESTRUCT PREMALG LESION (Cryosurgery) CPT-4: 23525 DESTRUCT PREMALG LES 2-14 CPT-4: 06623 01/13/2014 THER/PROPH/DIAG INJ SC/IM CPT-4: 82027 10/21/2013 METHYLPREDNISOLONE 40 MG INJ CPT-4: J1030 10/21/2013 TRIAMCINOLONE ACET INJ NOS CPT-4: J3301 10/21/2013 CEFTRIAXONE SODIUM INJECTION CPT-4: J0696 08/27/2013 THER/PROPH/DIAG INJ SC/IM CPT-4: 60099 08/27/2013 THER/PROPH/DIAG INJ SC/IM CPT-4: 79714 08/27/2013 METHYLPREDNISOLONE 40 MG INJ CPT-4: J1030 08/27/2013 TRIAMCINOLONE ACET INJ NOS CPT-4: J3301 08/27/2013 THER/PROPH/DIAG INJ SC/IM CPT-4: 67395 06/23/2013 METHYLPREDNISOLONE 40 MG INJ CPT-4: J1030 06/23/2013 TRIAMCINOLONE ACET INJ NOS CPT-4: J3301 06/23/2013 THER/PROPH/DIAG INJ SC/IM CPT-4: 07826 05/26/2013 METHYLPREDNISOLONE 40 MG INJ CPT-4: J1030 05/26/2013 TRIAMCINOLONE ACET INJ NOS CPT-4: J3301 05/26/2013 ROUTINE VENIPUNCTURE CPT-4: 55597 03/05/2013 ASSAY OF FREE THYROXINE CPT-4: 91914 03/05/2013 ASSAY THYROID STIM HORMONE CPT-4: 88003 03/05/2013 COMPREHEN METABOLIC PANEL CPT-4: 65814 03/05/2013 COMPLETE CBC W/AUTO DIFF WBC CPT-4: 91459 03/05/2013 A1C GLYCOSYLATED HEMOGLOBIN TEST CPT-4: 90245 013 DRAIN/INJECT JOINT/BURSA CPT-4: 54927 12/04/2012 METHYLPREDNISOLONE 40 MG INJ CPT-4: J1030 12/04/2012 TRIAMCINOLONE ACET INJ NOS CPT-4: J3301 12/04/2012 CEFTRIAXONE SODIUM INJECTION CPT-4: J0696 11/21/2012 THER/PROPH/DIAG INJ SC/IM CPT-4: 72924 11/21/2012 THER/PROPH/DIAG INJ SC/IM CPT-4: 31447 10/14/2012 METHYLPREDNISOLONE 40 MG INJ CPT-4: J1030 10/14/2012 TRIAMCINOLONE ACET INJ NOS CPT-4: J3301 10/14/2012 URINALYSIS NONAUTO W/O SCOPE CPT-4: 44332 09/27/2012 ROUTINE VENIPUNCTURE CPT-4: 70900 09/25/2012 ASSAY OF FREE THYROXINE CPT-4: 89250 09/25/2012 ASSAY THYROID STIM HORMONE CPT-4: 07008 09/25/2012 COMPREHEN METABOLIC PANEL CPT-4: 83693 09/25/2012 COMPLETE CBC W/AUTO DIFF WBC CPT-4: 70688 09/25/2012 C-REACTIVE PROTEIN CPT-4: 43153 09/25/2012 THER/PROPH/DIAG INJ SC/IM CPT-4: 85106 08/29/2012 METHYLPREDNISOLONE 40 MG INJ CPT-4: J1030 08/29/2012 TRIAMCINOLONE ACET INJ NOS CPT-4: J3301 08/29/2012 DESTRUCT PREMALG LESION (Cryosurgery) CPT-4: 94191 THER/PROPH/DIAG INJ SC/IM CPT-4: 07127 05/06/2012 METHYLPREDNISOLONE 40 MG INJ CPT-4: J1030 05/06/2012 TRIAMCINOLONE ACET INJ NOS CPT-4: J3301 05/06/2012 VITAMIN B 12 FOLIC ACID CPT-4: 64103|45895 05/06/2012 RBC SED RATE AUTOMATED CPT-4: 32092 05/06/2012 ROUTINE VENIPUNCTURE CPT-4: 96799 05/06/2012 ASSAY OF FREE THYROXINE CPT-4: 32364 05/06/2012 ASSAY THYROID STIM HORMONE CPT-4: 09937 05/06/2012 COMPREHEN METABOLIC PANEL CPT-4: 12530 05/06/2012 COMPLETE CBC W/AUTO DIFF WBC CPT-4: 88114 05/06/2012 ASSAY OF BLOOD/URIC ACID CPT-4: 94310 05/06/2012 THER/PROPH/DIAG INJ SC/IM CPT-4: 98977 03/19/2012 KETOROLAC TROMETHAMINE INJ CPT-4: J1885 03/19/2012 KETOROLAC TROMETHAMINE INJ CPT-4: J1885 01/30/2012 THER/PROPH/DIAG INJ SC/IM CPT-4: 23971 01/30/2012 PROMETHAZINE HCL INJECTION CPT-4: J2550 01/30/2012 THER/PROPH/DIAG INJ SC/IM CPT-4: 85797 01/24/2012 METHYLPREDNISOLONE 40 MG INJ CPT-4: J1030 01/24/2012 TRIAMCINOLONE ACET INJ NOS CPT-4: J3301 01/24/2012 THER/PROPH/DIAG INJ SC/IM CPT-4: 19766 09/13/2011 KETOROLAC TROMETHAMINE INJ CPT-4: J1885 09/13/2011 THER/PROPH/DIAG INJ SC/IM CPT-4: 98996 09/13/2011 PROMETHAZINE HCL INJECTION CPT-4: J2550 09/13/2011 CEFTRIAXONE SODIUM INJECTION CPT-4: J0696 07/20/2011 THER/PROPH/DIAG INJ SC/IM CPT-4: 14932 07/20/2011 THER/PROPH/DIAG INJ SC/IM CPT-4: 58165 07/20/2011 METHYLPREDNISOLONE INJECTION CPT-4: J2930 07/20/2011 URINALYSIS NONAUTO W/O SCOPE CPT-4: 01134 05/09/2011 CEFTRIAXONE SODIUM INJECTION CPT-4: J0696 05/09/2011 THER/PROPH/DIAG INJ SC/IM CPT-4: 82238 05/09/2011 THER/PROPH/DIAG INJ SC/IM CPT-4: 47846 05/09/2011 PROMETHAZINE HCL INJECTION CPT-4: J2550 05/09/2011 HYDRATION IV INFUSION INIT CPT-4: 69212 05/09/2011 DESTRUCT PREMALG LESION (Cryosurgery) CPT-4: 65416 DESTRUCT PREMALG LES 2-14 CPT-4: 43614 07/19/2010 REMOVAL OF SKIN TAGS <W/15 CPT-4: 62402 05/30/2010 THER/PROPH/DIAG INJ SC/IM CPT-4: 43538 04/05/2010 CEFTRIAXONE SODIUM INJECTION CPT-4: J0696 04/05/2010 TRIAMCINOLONE ACET INJ NOS CPT-4: J3301 04/05/2010 METHYLPREDNISOLONE 40 MG INJ CPT-4: J1030 04/05/2010 THER/PROPH/DIAG INJ SC/IM CPT-4: 45772 04/05/2010 TRIAMCINOLONE ACET INJ NOS CPT-4: J3301 03/09/2010 METHYLPREDNISOLONE 40 MG INJ CPT-4: J1030 03/09/2010 THER/PROPH/DIAG INJ SC/IM CPT-4: 25525 03/09/2010 THER/PROPH/DIAG INJ SC/IM CPT-4: 85032 03/09/2010 CEFTRIAXONE SODIUM INJECTION CPT-4: J0696 03/09/2010 Vital Signs Date Vital 05/28/2019 Blood Pressure 1: 126/82 Code: 8480-6 BMI: 35.0 Code: 73483-2 Heart Rate 1: 88 bpm Height: 5'4" [...] 1: 128/90 Code: 8480-6 BMI: 37.2 Code: 29391-5 Heart Rate 1: 84 bpm Height: 5'4" Respiratory Rate: 20 bpm SpO2: 95% Tempera ture: 36.6 (C) / 97.8 (F) Weight: 217 lbs 08/27/2018 Blood Pressure 1: 128/88 Code: 8480-6 BMI: 38.3 Code: 15008-5 Heart Rate 1: 84 bpm Height: 5'4" [...] 1: 119/72 Code: 8480-6 BMI: 37.4 Code: 62968-5 Heart Rate 1: 82 bpm Height: 5'4" Respiratory Rate: 12 bpm SpO2: 94% Tempera ture: 35.2 (C) / 95.4 (F) Weight: 218 lbs 12/18/2017 Blood Pressure 1: 128/86 Code: 8480-6 BMI: 37.8 Code: 78095-9 Heart Rate 1: 84 bpm Height: 5'4" [...] 1: 128/82 Code: 8480-6 BMI: 35.5 Code: 00375-4 Heart Rate 1: 84 bpm Height: 5'4" [...] 1: 128/82 Code: 8480-6 BMI: 30.2 Code: 83339-7 Heart Rate 1: 80 bpm Height: 5'4" [...] 1: 128/86 Code: 8480-6 BMI: 32.8 Code: 80927-0 Heart Rate 1: 66 bpm Height: 5'4" Respiratory Rate: 18 bpm Temperature: 36 .3 (C) / 97.3 (F) Weight: 191 lbs 06/23/2013 Blood Pressure 1: 132/94 Code: 8480-6 BMI: 34.0 Code: 86809-3 Heart Rate 1: 84 bpm Height: 5'4" Respiratory Rate: 20 bpm Temperature: 36 .8 (C) / 98.2 (F) Weight: 198 lbs 05/26/2013 Blood Pressure 1: 114/80 Code: 8480-6 BMI: 35.0 Code: 98517-3 Heart Rate 1: 80 bpm Height: 5'4" Respiratory Rate: 20 bpm Temperature: 36 .4 (C) / 97.6 (F) Weight: 204 lbs 04/16/2013 Blood Pressure 1: 114/82 Code: 8480-6 BMI: 36.7 Code: 79294-2 Heart Rate 1: 84 bpm Height: 5'4" Respiratory Rate: 20 bpm Temperature: 36 .7 (C) / 98.0 (F) Weight: 214 lbs 03/05/2013 Blood Pressure 1: 136/90 Code: 8480-6 BMI: 37.1 Code: 54088-6 Heart Rate 1: 84 bpm Height: 5'4" [...] 1: 168/114 Code: 8480-6 BMI: 36.2 Code: 03437-0 Heart Rate 1: 104 bpm Height: 5'4" Respiratory Rate: 20 bpm Temperature: 36 .8 (C) / 98.2 (F) Weight: 211 lbs 11/22/2012 Blood Pressure 1: 128/90 Code: 8480-6 Heart Rate 1: 88 bpm Respiratory Rate: 20 bpm SpO2: 96% Temperature: 36.8 (C) / 98.2 (F) 11/21/2012 Blood Pressure 1: 146/100 Code: 8480-6 BMI: 35.7 Code: 20451-4 Heart Rate 1: 96 bpm Height: 5'4" [...] 1: 138/100 Code: 8480-6 BMI: 35.7 Code: 44320-3 Heart Rate 1: 96 bpm Height: 5'4" Respiratory Rate: 20 bpm Temperature: 36 .8 (C) / 98.2 (F) Weight: 208 lbs 05/06/2012 Blood Pressure 1: 154/102 Code: 8480-6 BMI: 34.7 Code: 43387-4 Heart Rate 1: 116 bpm Height: 5'4" Respiratory Rate: 20 bpm Temperature: 36 .8 (C) / 98.2 (F) Weight: 202 lbs 04/03/2012 Blood Pressure 1: 134/94 Code: 8480-6 BMI: 34.8 Code: 85919-0 Heart Rate 1: 108 bpm Height: 5'4" Respiratory Rate: 20 bpm Temperature: 36 .8 (C) / 98.2 (F) Weight: 203 lbs 03/19/2012 Blood Pressure 1: 148/106 Code: 8480-6 BMI: 35.0 Code: 50136-5 Heart Rate 1: 100 bpm Height: 5'4" Respiratory Rate: 20 bpm Temperature: 36 .6 (C) / 97.9 (F) Weight: 204 lbs 02/22/2012 Blood Pressure 1: 146/94 Code: 8480-6 He art Rate 1: 88 bpm 02/21/2012 Blood Pressure 1: 172/120 Code: 8480-6 B lood Pressure 2: 152/106 Code: 8480-6 Heart Rate 1: 116 bpm 02/20/2012 Blood Pressure 1: 160/100 Code: 8480-6 BMI: 32.0 Code: 72652-0 Heart Rate 1: 84 bpm Height: 5'7" Temperature: 36.5 (C) / 97.7 (F) Weight: 204 lbs 01/30/2012 Blood Pressure 1: 152/110 Code: 8480-6 BMI: 32.0 Code: 60287-3 Heart Rate 1: 116 bpm Height: 5'7" Respiratory Rate: 20 bpm Temperature: 37 .0 (C) / 98.6 (F) Weight: 204 lbs 01/24/2012 Blood Pressure 1: 146/100 Code: 8480-6 BMI: 32.0 Code: 86838-6 Heart Rate 1: 100 bpm Height: 5'7" Respiratory Rate: 20 bpm Temperature: 36 .7 (C) / 98.0 (F) Weight: 204 lbs 01/10/2012 Blood Pressure 1: 156/94 Code: 8480-6 BMI: 32.6 Code: 87259-8 Heart Rate 1: 72 bpm Height: 5'7" Respiratory Rate: 20 bpm Temperature: 36 .8 (C) / 98.2 (F) Weight: 208 lbs 12/11/2011 Blood Pressure 1: 146/100 Code: 8480-6 Heart Rat e 1: 116 bpm Height: 5'7" Respiratory Rate: 20 bpm Temperature: 36.9 (C) / 98.4 (F) We ight: 11/09/2011 Blood Pressure 1: 148/96 Code: 8480-6 BMI: 32.1 Code: 64907-1 Heart Rate 1: 116 bpm Height: 5'7" Respiratory Rate: 20 bpm Temperature: 36 .7 (C) / 98.0 (F) Weight: 205 lbs 09/13/2011 Blood Pressure 1: 126/88 Code: 8480-6 Heart Rate 1: 88 bpm Height: 5'7" Respiratory Rate: 20 bpm Temperature: 36.9 (C) / 98.4 (F) We ight: 08/31/2011 Blood Pressure 1: 118/82 Code: 8480-6 BMI: 32.0 Code: 99765-4 Heart Rate 1: 80 bpm Height: 5'7" Temperature: 36.4 (C) / 97.6 (F) Weight: 204 lbs 07/06/2011 Blood Pressure 1: 128/86 Code: 8480-6 BMI: 30.9 Code: 03304-0 Heart Rate 1: 92 bpm Height: 5'7" Respiratory Rate: 20 bpm Temperature: 36 .9 (C) / 98.4 (F) Weight: 197 lbs 06/06/2011 Blood Pressure 1: 112/74 Code: 8480-6 BMI: 31.0 Code: 20639-2 Heart Rate 1: 72 bpm Height: 5'7" [...] 1: 128/92 Code: 8480-6 BMI: 33.6 Code: 24545-5 Heart Rate 1: 104 bpm Height: 5'4" [...] Check-up Encounters Encounter Performer Location Codes Date ([id number]) OFFICE/OUTPATIENT VISIT EST Diagnosis: Essential (primary) hypertension[ICD10: I10] Diagnosis: Fall from bed, sequela[ICD10: W06.XXXS] María Elena [employer] CPT-4: 26321 05/28/2019 ([id number]) NURSE/OUTPATIENT VISIT EST Diagnosis: Essential (primary) hypertension[ICD10: I10] María Elena [facility] [employer] CPT-4: 62737 05/19/2019 ([id number]) OFFICE/OUTPATIENT VISIT EST Diagnosis: Essential (primary) hypertension[ICD10: I10] Diagnosis: Type 2 diabetes mellitus with hyperglycemia[ICD10: E11.65] Diagnosis: Intervertebral disc disorders with radiculopathy, 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] Diagnosis: Hormone replacement therapy[ICD10: Z79.890] María Elena [facility] [employer] CPT-4: 43353 01/22/2019 ([id number]) OFFICE/OUTPATIENT VISIT EST Diagnosis: Essential (primary) hypertension[ICD10: I10] Diagnosis: Type 2 diabetes mellitus with hyperglycemia[ICD10: E11.65] María Elena [facility] [employer] CPT-4: 10801 09/30/2018 ([id number]) OFFICE/OUTPATIENT VISIT EST Diagnosis: Pain in left elbow[ICD10: M25.522] Diagnosis: Acute stress reaction[ICD10: F43.0] Diagnosis: Primary insomnia[ICD10: F51.01] Diagnosis: Abnormal weight gain[ICD10: R63.5] María Elena [facility] [employer] CPT-4: 73719 08/27/2018 ([id number]) OFFICE/OUTPATIENT VISIT EST Diagnosis: Acute recurrent sinusitis, unspecified[ICD10: J01.91] Diagnosis: Follicular disorder, unspecified[ICD10: L73.9] Diagnosis: Tinea corporis[ICD10: B35.4] María Elena APPIAH [facility] CPT-4: 49583 08/09/2018 ([id number]) OFFICE/OUTPATIENT VISIT EST Diagnosis: Tinea corporis[ICD10: B35.4] Diagnosis: Anxiety disorder, unspecified[ICD10: F41.9] Diagnosis: Menopausal and female climacteric states[ICD10: N95.1] María Elena APPIAH [facility] CPT-4: 55895 07/22/2018 ([id number]) NURSE/OUTPATIENT VISIT EST Diagnosis: Cellulitis of right toe[ICD10: L03.031] María Elena APPIAH [facility] CPT-4: 86844 06/19/2018 ([id number]) OFFICE/OUTPATIENT VISIT EST Diagnosis: Cellulitis of right toe[ICD10: L03.031] Kathleen APPIAH [facility] CPT-4: 90123 06/17/2018 ([id number]) OFFICE/OUTPATIENT VISIT EST Diagnosis: Migraine without aura, intractable, without status migrainosus[ICD10: G43.019] Diagnosis: Zoster without complications[ICD10: B02.9] Kathleen APPIAH [facility] CPT-4: 32397 05/16/2018 ([id number]) OFFICE/OUTPATIENT VISIT EST Diagnosis: Cellulitis of right lower limb[ICD10: L03.115] Kathleen APPIAH DO [facility] CPT-4: 02612 03/20/2018 ([id number]) OFFICE/OUTPATIENT VISIT EST Diagnosis: Cellulitis of right lower limb[ICD10: L03.115] Kathleen APPIAH DO [facility] CPT-4: 97741 03/18/2018 ([id number]) OFFICE/OUTPATIENT VISIT EST Diagnosis: Cellulitis of right lower limb[ICD10: L03.115] Kathleen APPIAH DO [facility] CPT-4: 74014 03/15/2018 ([id number]) OFFICE/OUTPATIENT VISIT EST Diagnosis: Acute sinusitis, unspecified[ICD10: J01.90] Kathleen APPIAH DO [facility] CPT-4: 78305 02/11/2018 ([id number]) NURSE/OUTPATIENT VISIT EST Diagnosis: Otitis media, unspecified, right ear[ICD10: H66.91] María Elena APPIAH DO 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 CPT-4: 21180 12/10/2017 ([id number]) OFFICE/OUTPATIENT VISIT EST Diagnosis: Cellulitis of right toe[ICD10: L03.031] Diagnosis: Acute sinusitis, unspecified[ICD10: J01.90] Kathleen APPIAH DO [facility] CPT-4: 16165 12/07/2017 OFFICE/OUTPATIENT VISIT EST Diagnosis: Acute maxillary sinusitis, unspecified[ICD10: J01.00] Kathleen APPIAH DO [facility] CPT-4: 12057 10/08/2017 ([id number]) OFFICE/OUTPATIENT VISIT EST Diagnosis: Cellulitis of left toe[ICD10: L03.032] María Elena APPIAH DO [facility] CPT-4: 57505 09/21/2017 ([id number]) OFFICE/OUTPATIENT VISIT EST Diagnosis: Insomnia, unspecified[ICD10: G47.00] Diagnosis: Major depressive disorder, single episode, unspecified[ICD10: F32.9] Diagnosis: Anxiety disorder, unspecified[ICD10: F41.9] Diagnosis: Cellulitis of left toe[ICD10: L03.032] Diagnosis: Snoring[ICD10: R06.83] Kathleen APPIAH DO [facility] CPT-4: 33940 09/20/2017 ([id number]) OFFICE/OUTPATIENT VISIT EST Diagnosis: Cellulitis of left toe[ICD10: L03.032] María Elena APPIAH DO [facility] CPT-4: 63495 07/19/2017 OFFICE/OUTPATIENT VISIT EST Diagnosis: Chronic sinusitis, unspecified[ICD10: J32.9] Diagnosis: Generalized hyperhidrosis[ICD10: R61] Kathleen APPIAH DO 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 CPT-4: 83813 04/10/2017 ([id number]) OFFICE/OUTPATIENT VISIT EST Diagnosis: Primary insomnia[ICD10: F51.01] Diagnosis: Localized edema[ICD10: R60.0] Diagnosis: 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] María Elena APPIAH DO [facility] CPT-4: 79577 12/13/2016 ([id number]) OFFICE/OUTPATIENT VISIT EST Diagnosis: Primary insomnia[ICD10: F51.01] Diagnosis: Cyanosis[ICD10: R23.0] María Elena Bazzi [employer] CPT-4: 05124 11/01/2016 ([id number]) PREV VISIT EST AGE 40-64 Diagnosis: Encounter for gynecological examination (general) (routine) without abnormal findings[ICD10: Z01.419] Diagnosis: Encounter for routine child health examination without abnormal findings[ICD10: Z00.129] María Elena APPIAH [employer] CPT-4: 89214 10/17/2016 ([id number]) OFFICE/OUTPATIENT VISIT EST Diagnosis: Other seasonal allergic rhinitis[ICD10: J30.2] María Elena APPIAH [employer] CPT-4: 25916 10/10/2016 ([id number]) OFFICE/OUTPATIENT VISIT EST Diagnosis: Pain in left arm[ICD10: M79.602] Diagnosis: Contact with and (suspected) exposure to potentially hazardous body fluids[ICD10: Z77.21] Diagnosis: 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 CPT-4: 37014 08/16/2016 ([id number]) OFFICE/OUTPATIENT VISIT EST Diagnosis: Otitis media, unspecified, right ear[ICD10: H66.91] Diagnosis: Acute bronchitis, unspecified[ICD10: J20.9] María Elena APPIAH DO [facility] CPT-4: 41076 08/10/2016 ([id number]) OFFICE/OUTPATIENT VISIT EST Diagnosis: Acute recurrent sinusitis, unspecified[ICD10: J01.91] Diagnosis: Allergic rhinitis due to pollen[ICD10: J30.1] María Elena APPIAH DO [facility] CPT-4: 71582 08/02/2016 ([id number]) OFFICE/OUTPATIENT VISIT EST Diagnosis: Pain in unspecified joint[ICD10: M25.50] María Elena APPIAH DO 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 CPT-4: 04697 07/20/2016 ([id number]) OFFICE/OUTPATIENT VISIT EST Diagnosis: Blister (nonthermal), left great toe, initial encounter[ICD10: S90.422A] Loan APPIAH DO [facility] CPT-4: 66739 ([id number]) OFFICE/OUTPATIENT VISIT EST Diagnosis: Acute recurrent sinusitis, unspecified[ICD10: J01.91] María Elena APPIAH DO [facility] CPT-4: 85379 05/25/2016 ([id number]) OFFICE/OUTPATIENT VISIT EST Diagnosis: Acute sinusitis, unspecified[ICD10: J01.90] María Elena APPIAH DO [facility] CPT-4: 93084 04/26/2016 ([id number]) OFFICE/OUTPATIENT VISIT EST Diagnosis: Flushing[ICD10: R23.2] Diagnosis: Primary insomnia[ICD10: F51.01] María Elena APPIAH DO [facility] CPT-4: 62346 03/02/2016 ([id number]) OFFICE/OUTPATIENT VISIT EST Diagnosis: Other seasonal allergic rhinitis[ICD10: J30.2] Loan APPIAH [facility] CPT-4: 62081 02/09/2016 ([id number]) OFFICE/OUTPATIENT VISIT EST Diagnosis: Primary insomnia[ICD10: F51.01] Diagnosis: Urinary tract infection, site not specified[ICD10: N39.0] María Elena APPIAH [facility] CPT-4: 15180 01/24/2016 ([id number]) OFFICE/OUTPATIENT VISIT EST Diagnosis: Other specified disorders of Eustachian tube, bilateral[ICD10: H69.83] Diagnosis: Allergic rhinitis, unspecified[ICD10: J30.9] Loan APPIAH [facility] CPT-4: 19955 12/23/2015 ([id number]) OFFICE/OUTPATIENT VISIT EST Diagnosis: Acute recurrent sinusitis, unspecified[ICD10: J01.91] Diagnosis: 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] Diagnosis: Allergic rhinitis, unspecified[ICD10: J30.9] María Elena APPIAH [facility] CPT-4: 02223 12/08/2015 ([id number]) OFFICE/OUTPATIENT VISIT EST Diagnosis: Allergic rhinitis, unspecified[ICD10: J30.9] Diagnosis: Pain in unspecified joint[ICD10: M25.50] María Elena APPIAH [facility] CPT-4: 48147 10/07/2015 ([id number]) OFFICE/OUTPATIENT VISIT EST Diagnosis: Essential (primary) hypertension[ICD10: I10] María Elena APPIAH [facility] CPT-4: 26779 10/06/2015 OFFICE/OUTPATIENT VISIT EST Diagnosis: Localized enlarged lymph nodes[ICD10: R59.0] Diagnosis: Local infection of the skin and subcutaneous tissue, unspecified[ICD10: L08.9] June APPIAH DO [facility] CPT- 4: 03164 09/14/2015 ([id number]) OFFICE/OUTPATIENT VISIT EST Diagnosis: Essential (primary) hypertension[ICD10: I10] Diagnosis: Actinic keratosis[ICD10: L57.0] María Elena APPIAH DO [facility] CPT-4: 72638 09/07/2015 ([id number]) OFFICE/OUTPATIENT VISIT EST Diagnosis: Essential (primary) hypertension[ICD10: I10] Diagnosis: Acute stress reaction[ICD10: F43.0] María Elena [facility] CPT-4: 09663 08/18/2015 ([id number]) OFFICE/OUTPATIENT VISIT EST Diagnosis: Essential (primary) hypertension[ICD10: I10] María Elena APP[facility] CPT-4: 06515 07/07/2015 ([id number]) OFFICE/OUTPATIENT VISIT EST Diagnosis: Essential (primary) hypertension[ICD10: I10] María Elena APPIAH [facility] CPT-4: 89787 06/24/2015 ([id number]) OFFICE/OUTPATIENT VISIT EST Diagnosis: Essential (primary) hypertension[ICD10: I10] María Elena APPIAH DO [facility] CPT-4: 60150 06/21/2015 ([id number]) OFFICE/OUTPATIENT VISIT EST Diagnosis: Essential (primary) hypertension[ICD10: I10] Diagnosis: Mixed hyperlipidemia[ICD10: E78.2] Diagnosis: Acute stress reaction[ICD10: F43.0] Diagnosis: Primary insomnia[ICD10: F51.01] María Elena APPIAH DO [facility] CPT-4: 14395 06/16/2015 ([id number]) OFFICE/OUTPATIENT VISIT EST Diagnosis: INSOMNIA NOS[ICD9: 780.52] Diagnosis: HYPERTENSION[ICD9: 401.9] Diagnosis: Stress reaction[ICD9: 308.9] María Elena APPIAH DO [facility] CPT-4: 60691 06/02/2015 ([id number]) OFFICE/OUTPATIENT VISIT EST Diagnosis: HYPERTENSION[ICD9: 401.9] Diagnosis: Stress reaction[ICD9: 308.9] María Elena APPIAH DO 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 CPT-4: 00590 05/10/2015 ([id number]) OFFICE/OUTPATIENT VISIT EST Diagnosis: SINUSITIS, ACUTE[ICD9: 461.9] Diagnosis: ALLERGIC RHINITIS[ICD9: 477.9] Diagnosis: DERMATITIS NOS[ICD9: 692.9] María Elena REHMAN [facility] CPT-4: 75736 03/16/2015 OFFICE/OUTPATIENT VISIT EST Diagnosis: Otitis media[ICD9: 382.9] Diagnosis: SINUSITIS, ACUTE[ICD9: 461.9] June Felixdaniella APPIAH [facility] CPT-4: 07177 09/11/2014 ([id number]) OFFICE/OUTPATIENT VISIT EST Diagnosis: HYPERLIPIDEMIA NEC/NOS[ICD9: 272.4] María Elena APPIAH DO [facility] CPT-4: 34435 08/31/2014 ([id number]) OFFICE/OUTPATIENT VISIT EST Diagnosis: - I - HYPERTENSION[ICD9: 401.9] Diagnosis: HYPERLIPIDEMIA NEC/NOS[ICD9: 272.4] María Elena APPIAH DO [facility] CPT-4: 12255 08/27/2014 ([id number]) OFFICE/OUTPATIENT VISIT EST Diagnosis: ABDOMINAL PAIN[ICD9: 789.00] Diagnosis: DYSPEPSIA[ICD9: 536.8] Diagnosis: Thoracic back pain[ICD9: 724.1] María Elena APPIAH DO [facility] CPT-4: 70325 07/21/2014 ([id number]) OFFICE/OUTPATIENT VISIT EST Diagnosis: ALLERGIC RHINITIS[ICD9: 477.9] María Elena APPIAH [facility] CPT-4: 83253 07/15/2014 ([id number]) OFFICE/OUTPATIENT VISIT EST Diagnosis: EDEMA[ICD9: 782.3] Diagnosis: Chronic insomnia[ICD9: 780.52] María Elena APPIAH [facility] CPT-4: 81751 05/18/2014 ([id number]) OFFICE/OUTPATIENT VISIT EST Diagnosis: Thyromegaly[ICD9: 240.9] Diagnosis: - I - HYPERTENSION[ICD9: 401.9] Diagnosis: ROUTINE MEDICAL EXAM[ICD9: V70.0] Diagnosis: EDEMA[ICD9: 782.3] María Elena APPIAH [facility] CPT-4: 95343 05/14/2014 OFFICE/OUTPATIENT VISIT EST Diagnosis: BRONCHITIS, ACUTE[ICD9: 466.0] Diagnosis: SINUSITIS, ACUTE[ICD9: 461.9] María Elena APPIAH [facility] CPT-4: 07541 04/21/2014 OFFICE/OUTPATIENT VISIT EST Diagnosis: SINUSITIS, ACUTE[ICD9: 461.9] June Gabriellare MARÍA ELENA APPIAH [facility] CPT-4: 56213 03/04/2014 ([id number]) OFFICE/OUTPATIENT VISIT EST Diagnosis: VACCINE FOR TDAP[ICD10: Z23] María Elena APPIAH [facility] CPT-4: 79219 02/27/2014 ([id number]) OFFICE/OUTPATIENT VISIT EST Diagnosis: Seborrheic keratoses, inflamed[ICD9: 702.11] Diagnosis: ACTINIC KERATOSIS[ICD9: 702.0] Diagnosis: INSOMNIA NOS[ICD9: 780.52] María Elena PANDYA [facility] CPT-4: 23368 01/13/2014 OFFICE/OUTPATIENT VISIT EST Diagnosis: EUSTACHIAN TUBE DYSFUNCTION[ICD9: 381.81] Diagnosis: ALLERGIC RHINITIS[ICD9: 477.9] Diagnosis: Serous otitis media[ICD9: 381.4] María Elena APPIAH [facility] CPT-4: 20939 12/24/2013 ([id number]) OFFICE/OUTPATIENT VISIT EST Diagnosis: SINUSITIS, ACUTE[ICD9: 461.9] Diagnosis: ALLERGIC RHINITIS[ICD9: 477.9] Diagnosis: EUSTACHIAN TUBE DYSFUNCTION[ICD9: 381.81] María Elena APPIAH [facility] CPT-4: 86990 11/12/2013 ([id number]) OFFICE/OUTPATIENT VISIT EST Diagnosis: ALLERGIC RHINITIS[ICD9: 477.9] Diagnosis: SINUSITIS, ACUTE[ICD9: 461.9] María Elena APPIAH DO 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] María Elena APPIAH [facility] CPT-4: 06095 08/04/2013 ([id number]) OFFICE/OUTPATIENT VISIT EST Diagnosis: Cervicalgia[ICD9: 723.1] Diagnosis: SPASM OF MUSCLE[ICD9: 728.85] Diagnosis: CEPHALGIA, TENSION[ICD9: 307.81] María Elena APPIAH [facility] CPT-4: 24917 07/23/2013 ([id number]) OFFICE/OUTPATIENT VISIT EST 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] Diagnosis: ALLERGIC RHINITIS[ICD9: 477.9] María Elena APPIAH [facility] CPT-4: 95119 06/23/2013 ([id number]) OFFICE/OUTPATIENT VISIT EST Diagnosis: ALLERGIC RHINITIS[ICD9: 477.9] Diagnosis: ACUTE SEROUS OTITIS MEDIA[ICD9: 381.01] Diagnosis: 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] María Elena Hicks TD [facility] CPT-4: 74463 05/26/2013 ([id number]) OFFICE/OUTPATIENT VISIT EST Diagnosis: HYPERTENSION[ICD9: 401.9] Diagnosis: EDEMA[ICD9: 782.3] Diagnosis: Serous otitis media[ICD9: 381.4] [facility]: 93278 04/16/2013 ([id number]) OFFICE/OUTPATIENT VISIT EST Diagnosis: SINUSITIS, ACUTE[ICD9: 461.9] Diagnosis: ALLERGIC RHINITIS[ICD9: 477.9] Diagnosis: EDEMA[ICD9: 782.3] Diagnosis: Thyromegaly[ICD9: 240.9] Diagnosis: MALAISE AND FATIGUE[ICD9: 780.79] María [facility] Hicks [facility] C[facility]: 36000 03/05/2013 ([id number]) OFFICE/OUTPATIENT VISIT EST Diagnosis: PAIN, LOWER BACK[ICD9: 724.2] Diagnosis: SPASM OF MUSCLE[ICD9: 728.85] María [facility] Hicks [facility] CPT[facility]: 57486 12/23/2012 OFFICE/OUTPATIENT VISIT EST Diagnosis: Low back pain[ICD9: 724.2] Lashawn Hicks [facility] CPT-4: 77580 12/16/2012 ([id number]) OFFICE/OUTPATIENT VISIT EST Diagnosis: PAIN, LOWER BACK[ICD9: 724.2] Diagnosis: SCIATICA[ICD9: 724.3] Diagnosis: Lumbar herniated disc[ICD9: 722.10] María Elena Hicks [facility] CPT-[facility]: 08465 12/09/2012 ([id number]) OFFICE/OUTPATIENT VISIT EST Diagnosis: PAIN, LOWER BACK[ICD9: 724.2] Diagnosis: SCIATICA[ICD9: 724.3] Diagnosis: LUMBAR DISC DISPLACEMENT[ICD9: 722.10] María Elena ISAAC TANIA APPIAH DO [facility] CPT-4: 64697 12/04/2012 OFFICE/OUTPATIENT VISIT EST Diagnosis: Pneumonia[ICD9: 486] Mary SerranoRustam MARÍA ELENA APPIAH DO [facility] CPT-4: 05496 11/22/2012 ([id number]) OFFICE/OUTPATIENT VISIT EST Diagnosis: PNEUMONIA, ORGANISM[ICD9: 486] Diagnosis: Exacerbation of RAD (reactive airway disease)[ICD9: 493.92] María Elena APPIAH DO [facility] CPT-4: 72230 11/21/2012 OFFICE/OUTPATIENT VISIT EST Diagnosis: HYPERTENSION[ICD9: 401.9] Diagnosis: Cephalgia[ICD9: 784.0] Lashawn Eckert MARÍA ELENA APPIAH DO [facility] CPT-4: 09218 10/29/2012 ([id number]) OFFICE/OUTPATIENT VISIT EST Diagnosis: MALAISE AND FATIGUE[ICD9: 780.79] Diagnosis: ARTHRALGIA-MULTIPLE SITES[ICD9: 719.49] María Elena APPIAH DO [facility] CPT-4: 41340 10/14/2012 ([id number]) OFFICE/OUTPATIENT VISIT EST Diagnosis: URINARY FREQUENCY[ICD9: 788.41] María Elena APPIAH DO [facility] CPT-4: 09801 09/27/2012 ([id number]) OFFICE/OUTPATIENT VISIT EST Diagnosis: MALAISE AND FATIGUE[ICD9: 780.79] Diagnosis: ARTHRALGIA-MULTIPLE SITES[ICD9: 719.49] María Elena Seamusdawn KYLAH APPIAH DO 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 CPT-4: 77652 08/29/2012 OFFICE/OUTPATIENT VISIT EST Diagnosis: ACTINIC KERATOSIS[ICD9: 702.0] Diagnosis: Inflamed seborrheic keratosis[ICD9: 702.11] Diagnosis: Skin cancer of face[ICD9: 173.31] Diagnosis: HYPERTENSION[ICD9: 401.9] María Elena WAY NDER [facility] CPT-4: 13919 08/12/2012 ([id number]) OFFICE/OUTPATIENT VISIT EST Diagnosis: ARTHRALGIA-MULTIPLE SITES[ICD9: 719.49] Diagnosis: GOUT[ICD9: 274.9] Diagnosis: HYPERTENSION[ICD9: 401.9] Diagnosis: Tachycardia[ICD9: 785.0] María Elena HU KARLOS [facility] CPT-4: 82740 05/06/2012 ([id number]) OFFICE/OUTPATIENT VISIT EST Diagnosis: INSOMNIA NOS[ICD9: 780.52] María Elena KENTER [facility] CPT-4: 65671 04/03/2012 ([id number]) OFFICE/OUTPATIENT VISIT EST Diagnosis: INSOMNIA NOS[ICD9: 780.52] Diagnosis: HYPERTENSION[ICD9: 401.9] Diagnosis: MIGRAINE NOS/NOT INTRCBL[ICD9: 346.90] María Elena Waymindimaryjane CulverJARED SJj [facility] CPT-[facility]: 41026 03/19/2012 ([id number]) OFFICE/OUTPATIENT VISIT EST Diagnosis: CELLULITIS[ICD9: 682.9] Diagnosis: Ankle pain[ICD9: 719.47] Diagnosis: HYPERTENSION[ICD9: 401.9] María Elena WAY NDERose Mary [facility] CPT-4: 42185 02/20/2012 ([id number]) OFFICE/OUTPATIENT VISIT EST Diagnosis: MIGRAINE NOS/NOT INTRCBL[ICD9: 346.90] Diagnosis: Vomiting[ICD9: 787.03] María Elena TANNER R [facility] CPT-4: 90436 01/30/2012 ([id number]) OFFICE/OUTPATIENT VISIT EST Diagnosis: EDEMA[ICD9: 782.3] Diagnosis: HYPERTENSION[ICD9: 401.9] Diagnosis: ALLERGIC RHINITIS[ICD9: 477.9] Diagnosis: ARTHRALGIA-MULTIPLE SITES[ICD9: 719.49] María Elena Waymindimaryjane ValdesJj SEAMUSNDER [employer] [facility] CPT-4: 46757 01/24/2012 ([id number]) OFFICE/OUTPATIENT VISIT EST Diagnosis: SPASM OF MUSCLE[ICD9: 728.85] Diagnosis: Thoracic back pain[ICD9: 724.1] Diagnosis: Cervical pain[ICD9: 723.1] María Elena Seamusmindimaryjane MARÍA ELENA Fabiola PANDYA [facility] CPT-4: 72684 01/10/2012 OFFICE/OUTPATIENT VISIT EST Diagnosis: PAIN, LOWER BACK[ICD9: 724.2] Diagnosis: LUMBAR DISC DISPLACEMENT[ICD9: 722.10] María Elena ISAAC TANIA ValdesJj TD [facility] CPT-4: 88827 12/11/2011 OFFICE/OUTPATIENT VISIT EST Diagnosis: MIGRAINE NOS/NOT INTRCBL[ICD9: 346.90] Diagnosis: SINUSITIS, ACUTE[ICD9: 461.9] María Elena Seamusmindimaryjane MARÍA ELENA LucioJj [facility] CPT-[facility]: 39320 11/09/2011 OFFICE/OUTPATIENT VISIT EST Diagnosis: MIGRAINE NOS/NOT INTRCBL[ICD9: 346.90] Diagnosis: LYMPHADENOPATHY[ICD9: 785.6] María Elena Seamusmindimaryjane MARÍA ELENA LucioJj [facility] CPT-4: 28983 09/13/2011 OFFICE/OUTPATIENT VISIT EST Diagnosis: MALAISE AND FATIGUE[ICD9: 780.79] Diagnosis: ARTHRALGIA-MULTIPLE SITES[ICD9: 719.49] María Elena Seamusdawn MONTERO APARNAALCIDES LucioJj [facility] CPT-4: 52891 08/31/2011 OFFICE/OUTPATIENT VISIT EST Diagnosis: SINUSITIS, ACUTE[ICD9: 461.9] María Elena Seamusadwn JUARES LucioJj TD [facility] CPT-4: 68940 07/20/2011 OFFICE/OUTPATIENT VISIT EST Diagnosis: HYPERTENSION[ICD9: 401.9] Diagnosis: PAIN, LOWER BACK[ICD9: 724.2] Diagnosis: SPASM OF MUSCLE[ICD9: 728.85] María Elena JUARES LucioJj [facility] CPT-4: 76771 07/06/2011 OFFICE/OUTPATIENT VISIT EST Diagnosis: MIGRAINE NOS/NOT INTRCBL[ICD9: 346.90] Diagnosis: HYPERTENSION[ICD9: 401.9] María Elena JUARES S. ORE NDER DO [facility] CPT-4: 48738 05/22/2011 OFFICE/OUTPATIENT VISIT EST Diagnosis: SINUSITIS, ACUTE[ICD9: 461.9] Diagnosis: MIGRAINE NOS/NOT INTRCBL[ICD9: 346.90] Diagnosis: Dehydration[ICD9: 276.51] Diagnosis: Vomiting[ICD9: 787.03] María Elena MONTEROQUELINE Lucio. ORENDE R DO [facility] CPT-4: 86585 05/09/2011 ([id number]) OFFICE/OUTPATIENT VISIT EST María Elena Td ISAAC UELINE S. ORENDER DO [facility] CPT-4: 27212 02/14/2011 ([id number]) OFFICE/OUTPATIENT VISIT EST María Elena Seamusmindimaryjane ISAAC UELINE S. ORENDER DO [facility] CPT-4: 77724 02/03/2011 ([id number]) OFFICE/OUTPATIENT VISIT EST María Elena Seamusmindimaryjane ISAAC UELINE S. ORENDER DO [facility] CPT-4: 64463 01/31/2011 ([id number]) OFFICE/OUTPATIENT VISIT EST María Elena Seamusmindimaryjane ISAAC UELINE S. ORENDER DO [facility] CPT-4: 84463 01/25/2011 ([id number]) OFFICE/OUTPATIENT VISIT EST María Elena Td ISAAC UELINE S. ORENDER DO [facility] CPT-4: 02933 01/18/2011 ([id number]) OFFICE/OUTPATIENT VISIT EST María Elena ISAAC UELINE S. ORENDER DO [facility] CPT-4: 96017 11/29/2010 ([id number]) OFFICE/OUTPATIENT VISIT, EST María Elena MONTERO QUEALCIDES S. ORENDER DO [facility] CPT-4: 85071 10/10/2010 ([id number]) OFFICE/OUTPATIENT VISIT, EST María Elena Seamusdawn MONTERO APARNAALCIDES S. ORENDER DO [facility] CPT-4: 31449 06/07/2010 ([id number]) OFFICE/OUTPATIENT VISIT, EST María Elena MONTERO QUEALCIDES S. ORENDER DO [facility] CPT-4: 53408 04/27/2010 ([id number]) OFFICE/OUTPATIENT VISIT, EST María Elena MONTERO APARNAALCIDES S. ORENDER DO [facility] CPT-4: 95969 04/05/2010 ([id number]) OFFICE/OUTPATIENT VISIT, EST [facility] E[facility]na [facility] CPT-4: 97789 03/09/2010 ([id number]) OFFICE/OUTPATIENT VISIT, EST María Elena [facility] CPT-4: 68279 03/03/2010 ([id number]) OFFICE/OUTPATIENT VISIT, EST María Elena [facility] CPT-4: 92066 01/17/2010 ([id number]) PREV VISIT, EST, AGE 40-64 María Elena [facility] CPT-4: 24187 12/27/2009 Plan of Care Planned Activity Notes Codes Status Date Appointment: María Elena Appiah WPtel: [address] [place], [place] [id number] [place] Won't have the new insurance till [...] María Elena Appiah WPtel: [address] [place], [place] [address] [place] FOLLOW UP 05/28/2019 Appointment: María Elena Appiah WPtel: [address] [place], [place] [address] [place] BP CHECK 05/19/2019 Visit Diagnosis Plan: [...] Z79.890 01/22/2019 Appointment: María Elena Appiah WPtel: [address] [place], [place] [phone] [place] FOLLOW UP 01/22/2019 Patient Education: estradiol- [employer] Coupon [id number] https://www.Modusly/TalkMarkets/resources/getResource/61/882q931c-2mk3-6u77-5f Completed 01/22/2019 Appointment: María Elena Appiah WPtel: [address] [place] [address] [place] CANCELED 01/20/2019 Appointment: María Elena Appiah WPtel: [address] [place] [address] [place] LM NO SHOW 01/06/2019 Appointment: María Elena Appiah WPtel: [address] [place] [address] [place] CANCELED 10/17/2018 Appointment: María Elena Appiah WPtel: [address] [place] [address] [place] BP CHECK 10/09/2018 Visit Diagnosis Plan: [...] I10 09/30/2018 Appointment: María Elena Appiah WPtel: [address] [place], [place] [phone] [place] FOLLOW UP 09/30/2018 Visit Diagnosis Plan: [...] F51.01 08/27/2018 Appointment: María Elena Appiah WPtel: [address] [place], [place] [phone] ACUTE ILLNESS 08/27/2018 Appointment: Maraí Elena Appiah WPtel: [address] [place], [place] [phone] [place] Patient stated she went out to [...] Tyle... 08/09/2018 Appointment: María Elena Appiah WPtel: [address] [place], [place] [phone] ACUTE ILLNESS 08/09/2018 Appointment: María Elena Appiah WPtel: [address] [place], [place] [phone] [place] NO SHOW 08/08/2018 Visit Diagnosis Plan: [...] 07/22/2018 Appointment: María Elena Appiah WPtel: [address] [place] [address] ACUTE ILLNESS 07/22/2018 Appointment: María Elena Appiah WPtel: [address] [place] [address] [place] INJECTION 06/19/2018 Patient Education: Patient Medication [...] ICD-10 : L03.031 06/17/2018 Appointment: Kathleen Zuniga [address] [place] [address] ACUTE ILLNESS 06/17/2018 Patient Education: Patient Medication [...] : B02.9 05/16/2018 Appointment: Kathleen Zuniga [address] [phone] ACUTE ILLNESS 05/16/2018 Patient Education: Patient Medication [...] 03/20/2018 Appointment: Kathleen Zuniga [address] [phone] FOLLOW UP 03/20/2018 Patient Education: Patient Medication [...] : L03.115 03/18/2018 Appointment: Kathleen Zuniga [address] [facility] FOLLOW UP 03/18/2018 Patient Education: Patient Medication [...] : L03.115 03/15/2018 Appointment: Kathleen Zuniga [address] [phone] ACUTE ILLNESS 03/15/2018 Patient Education: Patient Medication [...] ICD-10 : J01.90 02/11/2018 Appointment: Kathleen Zuniga [address] [place] [address] ACUTE ILLNESS 02/11/2018 Patient Education: Patient Medication Summary Completed 02/11/2018 Appointment: María Elena Appiah WPtel: [phone] [id number] INJECTION 02/01/2018 Patient Education: Patient Medication [...] ICD-10 : M51.16 01/30/2018 Appointment: Kathleen Zuniga [address] [place] [address] ACUTE ILLNESS 01/30/2018 Patient Education: Patient Medication [...] E11.65 12/18/2017 Appointment: María Elena Appiah WPtel: [address] [place], [place] [phone] Annual Well Visit 12/18/2017 Patient Education: Patient Medication Summary Completed 12/18/2017 Care Plan: Referral Order SNOMED-CT : [id number] Pending 12/18/2017 Appointment: María Elena Appiah WPtel: [facility] [place] INJECTION 12/10/2017 Patient Education: [...] : L03.031 12/07/2017 Appointment: [facility] [facility] 12/07/2017 Patient Education: Patient Medication [...] : J01.00 10/08/2017 Appointment: Kathleen Zuniga [address] [facility] ACUTE ILLNESS 10/08/2017 Patient Education: Patient Medication Summary Completed 10/08/2017 Appointment: María Elena [facility] [address] [facility] [facility] 09/21/2017 Patient Education: Patient Medication [...] : R06.83 09/20/2017 Appointment: Kathleen Zuniga [address] [facility] ACUTE ILLNESS 09/20/2017 Patient Education: Patient Medication [...] ICD-10 : L60.0 08/29/2017 Appointment: Kathleen Zuniga [address] [place], [place] [phone] OFFICE SURGERY 08/29/2017 Patient Education: Patient Medication Summary Completed 08/29/2017 Visit Diagnosis Plan: Actinic keratosis Discussion: Cr yotherapy as above ICD-9 : 702.0 ICD-10 : L57.0 08/01/2017 Appointment: María Elena Appiah WPtel: [phone] [facility] OFFICE SURGERY 08/01/2017 Patient Education: Patient Medication Summary Completed 08/01/2017 Appointment: María Elena Appiah WPtel: [address] [facility] [place] PATIENT THOUGHT APPOINTMENT WAS TOMORROW 07/26/17 CALLED 15 MINUTES BEFORE APPT TO SAY SHE DIDN'T HAVE ANYONE TO COVER HER BUSINESS AND WOULD NOT MAKE IT NO SHOW 07/25/2017 Visit Diagnosis Plan: Cellulitis of left toe Discussio n: Clindamycin and notify if worsening or persistis ICD-9 : 681.10 ICD-10 : L03.032 07/19/2017 Appointment: María Elena Appiahtel: [address] [place], [place] [phone] MEDICATION REVIEW 07/19/2017 Patient Education: Patient Medication Summary Completed 07/19/2017 Appointment: María Elena Appiahtel: [address] [place] [address] [place] CANCELED 07/04/2017 Visit Diagnosis Plan: Generalized hyperhidrosis Discus ian: CBC, CMP, TSH, free T4 ordered to assess. will review labs. ICD-9 : 780.8 ICD-10 : R61 06/27/2017 Visit Diagnosis Plan: Chronic sinusitis, unspecified D iscussion: Referral sent to dr. albarado in [place] per patient request. patient has been treated multiple times for sinus infections with no recovery. patient was seen by dr sanchez in the past with no interventions. patient has deviated septum which may be affecting her sinuses. 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, including hip Discussion: Shave removal of above lesio n--sent to pathology ICD-9 : 216.7 ICD-10 : D23.72 01/24/2017 Appointment: María Elena Appiah WPtel: [address] [place], [place] [phone] 01/23 confirmed ~sl OFFICE SURGERY 01/24/2017 Patient Education: Patient Medication Summary Completed 01/24/2017 Appointment: Loan Sánchez [address] [place], [place] [phone] 01/09 rescheduled~sl RESCHEDULED 01/15/2017 Visit [...] L81.4 12/13/2016 Appointment: María Elena Appiah WPtel: [address] [place], [place] [address] 12/12 confirmed ~sl MEDICATION REVIEW 12/13/2016 Patient Education: Patient Medication Summary Completed 12/13/2016 Appointment: María Elena Appiah WPtel: [address] [place], [place] [phone] [place] rescheduled for 12/13/16 at 11am RESCHEDULED 0 12/06/2016 Appointment: María Elena Appiah WPtel: [address] [place], [place] [phone] [place] CANCELED 11/23/2016 Patient Education: Patient Medication [...] 11/01/2016 Appointment: María Elena [facility] [phone] [facility] [place] 10/31 lm `sl 11/01 lm`sl MEDICATION REVIEW 017 Patient Education: Patient Medication Summary Completed 11/01/2016 Referral: Canelo Overton WPtel: [address] [id number] [place] Referral Initiated 10/30/2016 Visit Diagnosis Plan: [...] 10/17/2016 Appointment: María Elena App[facility]el[facility] [phone] [facility] [place] 10/16 confirmed ~sl PAP 10/17/2016 Patient Education: Patient Medication Summary Completed 10/17/2016 Care Plan: MAMMOGRAM SCREENING LOINC : 2 6347-5 Pending 10/17/2016 Visit Diagnosis Plan: Other seasonal allergic rhinitis Discussion: Decadron/Garamycin Nasal [place] Mix Too soon for steroid Retry zyrtec 10mg daily ICD-9 : 477.9 ICD-10 : J30.2 10/10/2016 Appointment: María Elena Appiah WPtel: [address] [place], [place] [phone] FOLLOW UP 10/10/2016 Patient Education: Patient Medication Summary Completed 10/10/2016 Appointment: María Elena Appiah WPtel: [address] [place], [place] [address] 10/02 reschedule `sl RESCHEDULED 10/02/2016 Visit Plan: See surgery for removal of n ew left arm lesion and right foot lesion Lyrica to use next month for left arm paresthesias Continue current meds Discussed sunscreen/sunblock combo 09/19/2016 Appointment: María Elena Appiah WPtel: [address] [place], [place] [phone] 09/18 confirmed ~ FOLLOW UP 09/19/2016 Patient Education: Patient Medication Summary Completed 09/19/2016 Patient Education: Patient Medication Summary Completed 09/18/2016 Care Plan: MAMMOGRAM BOTH BREASTS LOINC : 61005-9 Pending 09/18/2016 Visit Plan: Discussed that needs [...] 08/24/2016 Appointment: María Elena Appiah WPtel: [address] [place], [place] [phone] ACUTE ILLNESS 08/24/2016 Patient Education: Patient Medication Summary Completed 08/24/2016 Patient Education: Patient Medication Summary Completed 08/23/2016 Care Plan: MAMMOGRAM SCREENING LOINC : 2 6347-5 Pending 08/23/2016 Visit Plan: Finish doxycycline Add Breo 100/25 1 p BID for 2 weeks If not improving within next 2 days will get CXR 08/16/2016 Appointment: María Elena Appiah WPtel: [address] [place] [address] ACUTE ILLNESS 08/16/2016 Patient Education: Patient Medication Summary Completed 08/16/2016 Visit Plan: Supportive care. Rest, Fluid s, Tylenol/Motrin prn fever or bodyaches. Notify if worsening symptoms. Doxycyline and Prednisone 08/10/2016 Appointment: María Elena Appiah WPtel: [address] [place] [address] 08/09 lm`sl....confirmed-sp FOLLOW UP 09/2015 Patient Education: Patient Medication Summary Completed 08/10/2016 Visit Plan: Saline nasal flushes prn. Ty lenol/Motrin prn headache. Notify if persists/symptoms worsening. Dexamethasone 8mg IM today May use coricedan and mucinex 08/02/2016 Appointment: María Elena Appiah WPtel: [address] [place] [address] ACUTE ILLNESS 08/02/2016 Patient Education: Patient Medication Summary Completed 08/02/2016 Visit Plan: Cryotherapy as above and lef t forearm lesion removal as above with 5-0 punch biopsy and sent to path Return in 10 days for suture removal 08/01/2016 Appointment: María Elena Appiahtel: [address] [place] [address] 07/31 confirmed`~sl OFFICE SURGERY 08/01/2016 Patient Education: Patient Medication Summary Completed 08/01/2016 Visit Plan: Stop clindamycin Check CBC, CMP, ESR now/STAT 07/27/2016 Appointment: María Elena Appiah WPtel: [address] [place] [address] ACUTE ILLNESS 07/27/2016 Patient Education: Patient Medication Summary Completed 07/27/2016 Visit Plan: Update lab and check ABIs to start with Will likely need cardiology evaluation to rule out PVD Clindamycin for 10 days Daily yogurt or probiotic Will return for removal of left arm lesions 07/20/2016 Appointment: María Elena Appiah WPtel: [address] [place] [address] ACUTE ILLNESS 07/20/2016 Patient Education: Patient Medication Summary Completed 07/20/2016 Patient Education: Patient Medication Summary Completed 07/20/2016 Care Plan: MAMMOGRAM BOTH BREASTS LOINC : 58544-4 Pending 07/20/2016 Care Plan: US EXAM CHEST LOINC : 81035-1 Pending 07/20/2016 Visit Plan: Wound culture collected from left great toe Appearance is somewhat staph like Rx as above Wound cleanser and skin care reviewed May need to add oral antibiotic if sores do not heal or continue to reoccur 07/06/2016 Appointment: Loan Sánchez [address] [place] [address] ACUTE ILLNESS 07/06/2016 Patient Education: Patient Medication Summary Completed 07/06/2016 Appointment: María Elena Appiah WPtel: [address] [place] [address] [place] INJECTION 05/25/2016 Patient Education: Patient Medication Summary Completed 05/25/2016 Visit Plan: Saline nasal flushes prn. Ty lenol/Motrin prn headache. Notify if persists/symptoms worsening. Dexamethasone and Rocephin given 04/26/2016 Appointment: María Elena Appiah WPtel: [address] [place] [address] ACUTE ILLNESS 04/26/2016 Patient Education: Patient Medication Summary Completed 04/26/2016 Visit Plan: Check CBC, CMP, TSH, FreeT4, HbA1C, estradiol, lipids in AM 03/02/2016 Appointment: María Elena Appiah WPtel: [address] [place] [address] 03/01 lm~sl ACUTE ILLNESS 03/02/2016 Patient Education: Patient Medication Summary Completed 03/02/2016 Visit Plan: Exam is nearly normal Needs to be taking daily antihistamine Would prefer to use oral steroids instead of shot but patient insist that oral steroids cause horrible headaches for her Will given kenalog IM instead 02/09/2016 Appointment: Loan Sánchez [address] [place] [address] ACUTE ILLNESS 02/09/2016 Patient Education: Patient Medication Summary Completed 02/09/2016 Visit Plan: Culture urine Macrobid DC xa nax Trial of Ativan 1mg q HS 01/24/2016 Appointment: María Elena Appiah WPtel: [address] [place] [address] ACUTE ILLNESS 01/24/2016 Patient Education: Patient Medication Summary Completed 01/24/2016 Visit Plan: No steroid or rocephin injec tion warranted Can have oral prednisone Continue current home regimen Needs to follow up with Dr Sanchez if problems persist 12/23/2015 Appointment: Loan Sánchez [address] [place] [address] ACUTE ILLNESS 12/23/2015 Patient Education: Patient Medication Summary Completed 12/23/2015 Visit Plan: Saline nasal flushes prn. Ty lenol/Motrin prn headache. Notify if persists/symptoms worsening. Kenalog 40mg IM today 12/08/2015 Appointment: María Elena Appiah WPtel: [address] [place] [address] 12/06 confirmed~ ACUTE ILLNESS 12/08/2015 Patient Education: Patient Medication Summary Completed 12/08/2015 Appointment: María Elena Appiah WPtel: [address] [place] [address] ACUTE ILLNESS 11/18/2015 Patient Education: Patient Medication Summary Completed 10/11/2015 Appointment: María Elena Appiah WPtel: [address] [place] [address] [place] INJECTION 10/07/2015 Patient Education: Patient Medication Summary Completed 10/07/2015 Visit Plan: Check renal arterial doppler s and ECHO Change amlodopine to lotrel 5/20mg q HS Will need stress test as well Check CMP, uric acid, ESR 10/06/2015 Appointment: María Elena Appiah WPtel: [address] [place] [address] ACUTE ILLNESS 10/06/2015 Patient Education: Patient Medication Summary Completed 10/06/2015 Patient Education: [facility] - [employer] - Amlodipine Besylate - 18-64 - Dynamic Portal ID Completed 10/06/2015 Appointment: María Elena Appiah WPtel: [address] [place], [place] [phone] [place] FOLLOW UP 09/22/2015 Visit Plan: Cephalexin 500 mg PO bid Mery ly topical Mupirocin to lesions on left lateral neck and face Follow-up in one week. Sooner if symptoms worsen 09/14/2015 Appointment: June Flores WPtel: [address] [place] [address] ACUTE ILLNESS 09/14/2015 Patient Education: Patient Medication Summary Completed 09/14/2015 Visit Plan: Change bystolic to bedtime d osing and amlodopine to morning dosing Cryotherapy as above to AKs 09/07/2015 Appointment: María Elena Appiah WPtel: [address] [place] [address] 09/06 appointment made and confirmed ~ FOLLOW UP 09/07/2015 Patient Education: Patient Medication Summary Completed 09/07/2015 Visit Plan: Increase bystolic back to 20 mg daily but will split and take 10mg in AM and 10mg in PM Stress Reducers 08/18/2015 Appointment: María Elena Appiah WPtel: [address] [place], [place] [phone] 08/17/15 appt confirmed cn ACUTE ILLNESS 08/18 Patient Education: Patient Medication Summary Completed 08/18/2015 Appointment: María Elena Appiah WPtel: [address] [place], [place] [phone] BP CHECK 07/07/2015 Patient Education: Patient Medication Summary Completed 07/07/2015 Appointment: María Elena Appiah WPtel: [address] [place] [address] BP CHECK 06/24/2015 Patient Education: Patient Medication Summary Completed 06/24/2015 Appointment: María Elena Appiah WPtel: [address] [place] [address] BP CHECK 06/21/2015 Patient Education: Patient Medication Summary Completed 06/21/2015 Visit Plan: Lab discussed Continue curre nt meds and lifestyle modification Recheck lab in 6mos 06/16/2015 Appointment: María Elena Appiahtel: [address] [place] [address] 06/15 confirmed FOLLOW UP 06/16/2015 Patient Education: Patient Medication Summary Completed 06/16/2015 Patient Education: Patient Medication Summary Completed 06/15/2015 Visit Plan: Increase cymbalta to 60mg q HS Keep clonidine at current dose Recheck 2weeks Change xanax to klonopin 06/02/2015 Appointment: María Elena Appiah WPtel: [address] [place] [address] 06/02 lm FOLLOW UP 06/02/2015 Patient Education: Patient Medication Summary Completed 06/02/2015 Appointment: María Elena Appiah WPtel: [address] [place] [address] ACUTE ILLNESS 05/24/2015 Visit Plan: Increase clonidine to 0.2mg q HS Add cymbalta 30mg q HS Recheck 2weeks Stress Reducers Check fasting lab Discussed sleep study 05/20/2015 Appointment: María Elena Appiah WPtel: [address] [place] [address] ACUTE ILLNESS 05/20/2015 Patient Education: Patient Medication Summary Completed 05/20/2015 Patient Education: [facility] - Saving [employer] - Cymbalta - 18-64 - Dynamic Portal ID Completed 05/20/2015 Appointment: María Elena Appiah WPtel: [address] [place] [address] BP CHECK 05/19/2015 Patient Education: Patient Medication Summary Completed 05/19/2015 Visit Plan: Topical Bactroban alternatin g with topical betamethasone Recheck 2weeks 05/10/2015 Appointment: María Elena Appiah WPtel: [address] [place] [address] 05/07 vm cn...05/07 appt confirmed OFFICE SURGER Y 05/10/2015 Patient Education: Patient Medication Summary Completed 05/10/2015 Referral: Patrick Chandler WPtel: [address] [id number] [place] Referral Initiated 05/04/2015 Visit Plan: Saline nasal flushes prn. Ty lenol/Motrin prn headache. Notify if persists/symptoms worsening. Depomedrol 40mg IM today 03/16/2015 Appointment: María Elena Appiah WPtel: [address] [place] [address] ACUTE ILLNESS 03/16/2015 Patient Education: Patient Medication Summary Completed 03/16/2015 Appointment: María Elena Appiah WPtel: [address] [place] [address] ER Follow UP 03/09/2015 Visit Plan: Cryotherapy to lesions as ab ove 10/27/2014 Appointment: María Elena Appiah WPtel: [address] [place] [address] OFFICE SURGERY 10/27/2014 Patient Education: Patient Medication Summary Completed 10/27/2014 Appointment: June Flores WPtel: [address] [place], [place] [phone] ACUTE ILLNESS 09/11/2014 Patient Education: Patient Medication Summary Completed 09/11/2014 Visit Plan: Lab discussed Lipitor 10mg d aily Coenzyme Q-10 400mg daily Vitamin D3 5000u daily Recheck lipids with LFTs in 3mos then fwup 08/31/2014 Appointment: María Elena Appiah WPtel: [address] [place] [address] 08/28 voicemail FOLLOW UP 08/31/2014 Patient Education: Patient Medication Summary Completed 08/31/2014 Appointment: María Elena Appiah WPtel: [address] [place] [address] LAB 08/27/2014 Appointment: María Elena Appiah WPtel: [address] [place], [place] [phone] LAB 08/27/2014 Patient Education: Patient Medication Summary Completed 08/27/2014 Appointment: María Elena Appiah WPtel: [address] [place] [address] ACUTE ILLNESS 07/23/2014 Appointment: María Elena Appiah WPtel: [address] [place] [address] ACUTE ILLNESS 07/21/2014 Patient Education: Patient Medication Summary Completed 07/21/2014 Visit Plan: Kenalog 40mg IM today Contin ue narendra and singulair Add Flonase 07/15/2014 Appointment: María Elena Appiahtel: [address] [place] [address] ACUTE ILLNESS 07/15/2014 Appointment: María Elena Appiah WPtel: [address] [place] [address] ACUTE ILLNESS 07/15/2014 Patient Education: Patient Medication Summary Completed 07/15/2014 Visit Plan: Will do metolazone 2.5mg prn with 6 potassium and see if causes as severe cramping Trial of of seroquel XR 50mg q PM with evening meal and let us know how works 05/18/2014 Appointment: María Elena Appiah WPtel: [address] [place] [address] 05/15 left message FOLLOW UP 05/18/2014 Patient Education: Patient Medication Summary Completed 05/18/2014 Appointment: María Elena Appiahtel: [address] [place], [place] [phone] LAB 05/14/2014 Patient Education: Patient Medication Summary Completed 05/14/2014 Appointment: María Elena Appiah WPtel: [address] [place], [place] [phone] [place] INJECTION 04/22/2014 Visit Plan: Tisha and Miranda today a nd finish abx given from urgent care 04/21/2014 Appointment: María Elena Appiah WPtel: [address] [place] [address] [place] INJECTION 04/21/2014 Patient Education: Patient Medication Summary Completed 04/21/2014 Appointment: June Flores WPtel: [address] [place] [address] ACUTE ILLNESS 03/04/2014 Patient Education: Patient Medication Summary Completed 03/04/2014 Appointment: María Elena Appiah WPtel: [address] [place] [address] INJECTION 02/27/2014 Patient Education: Patient Medication Summary Completed 02/27/2014 Visit Plan: Cryotherapy as above to all lesions Patient wants to try no meds for insomnia for a while and see how goes 01/13/2014 Appointment: María Elena Appiah WPtel: [address] [place] [address] OFFICE SURGERY 01/13/2014 Patient Education: Patient Medication Summary Completed 01/13/2014 Visit Plan: Stop Melatonin Stop Soma Tri al of trazadone 75mg q HS See ENT for possible tubes as has had chronic ETD and serous otitis media with numerous steroids 12/24/2013 Appointment: María Elena Appiah WPtel: [address] [place] [address] ACUTE ILLNESS 12/24/2013 Patient Education: Patient Medication Summary Completed 12/24/2013 Visit Plan: Saline nasal flushes prn. Ty lenol/Motrin prn headache. Notify if persists/symptoms worsening. 11/12/2013 Appointment: María Elena Appiah WPtel: [address] [place] [address] ACUTE ILLNESS 11/12/2013 Patient Education: Patient Medication Summary Completed 11/12/2013 Appointment: María Elena Appiah WPtel: [address] [place], [place] [phone] ACUTE ILLNESS 10/21/2013 Patient Education: Patient Medication Summary Completed 10/21/2013 Visit Plan: Sleep hygiene and sleep rout ine Melatonin 10mg q HS Support stockings and observe 09/22/2013 Appointment: María Elena Appiah WPtel: [address] [place] [address] ACUTE ILLNESS 09/22/2013 Patient Education: Patient Medication Summary Completed 09/22/2013 Appointment: June Flores WPtel: [address] [place] [address] ACUTE ILLNESS 08/27/2013 Patient Education: Patient Medication Summary Completed 08/27/2013 Visit Plan: Proceed with CT scan of head /neck Proceed with occipital nerve injections Butrans 20mcg patch weekly until can get into see Dr. Mcdonough for injections 08/04/2013 Appointment: María Elena Appiah WPtel: [address] [place] [address] FOLLOW UP 08/04/2013 Patient Education: Patient Medication Summary Completed 08/04/2013 Visit Plan: OMT done Daily neck stretche s, moist heat Increase Celebrex to 200mg BID Add flexeril 07/23/2013 Appointment: María Elena Appiah WPtel: [address] [place], [place] [phone] 07/22 voicemail FOLLOW UP 07/23/2013 Patient Education: Patient Medication Summary Completed 07/23/2013 Appointment: María Elena Appiah WPtel: [address] [place] [address] ACUTE ILLNESS 06/23/2013 Patient Education: Patient Medication Summary Completed 06/23/2013 Appointment: María Elena Appiah WPtel: [address] [place] [address] ACUTE ILLNESS 05/26/2013 Patient Education: Patient Medication Summary Completed 05/26/2013 Visit Plan: Decrease clonidine to 0.1mg TID If BP remains stable consider decreasing amlodopine Prednisone for 5 days BP check in 1mo 04/16/2013 Appointment: María Elena Appiah WPtel: [address] [place] [address] 04/14 pt called and confirmed appt FOLLOW UP 04/16/2013 Patient Education: Patient Medication Summary Completed 04/16/2013 Appointment: María Elena Appiah WPtel: [address] [place] [address] ACUTE ILLNESS 03/05/2013 Patient Education: Patient Medication Summary Completed 03/05/2013 Visit Plan: Pt has MARIA ELENA on with Dr. Mcdonough Continue Butrans patch Refill Hydrocodone early tomorrow 12/23/2012 Appointment: María Elena Appiah WPtel: [address] [place] [address] FOLLOW UP 12/23/2012 Patient Education: Patient Medication Summary Completed 12/23/2012 Appointment: Lashawn Eckert WPtel: [address] [place] [address] ACUTE ILLNESS 12/16/2012 Patient Education: Patient Medication Summary Completed 12/16/2012 Visit Plan: Proceed with updated MRI of LS spine Continue gabapentin and add soma and diclofenac Will likely need to go for another epidural 12/09/2012 Appointment: María Elena Appiah WPtel: [address] [place] [address] ACUTE ILLNESS 12/09/2012 Patient Education: Patient Medication Summary Completed 12/09/2012 Visit Plan: Injection as above Finish me drol dose pack Chiropracter this afternoon 12/04/2012 Appointment: María Elena Appiah WPtel: [address] [place] [address] ACUTE ILLNESS 12/04/2012 Patient Education: Patient Medication Summary Completed 12/04/2012 Appointment: Mary Tillman WPtel: [address] [place] [address] FOLLOW UP 11/22/2012 Patient Education: Patient Medication Summary Completed 11/22/2012 Appointment: María Elena Appiah WPtel: [address] [place] [address] ACUTE ILLNESS 11/21/2012 Patient Education: Patient Medication Summary Completed 11/21/2012 Appointment: María Elena Appiah WPtel: [address] [place] [address] [place] BP CHECK 11/07/2012 Patient Education: Patient [...] re-check. 10/29/2012 Appointment: Lashawn Eckert WPtel: [address] [place] [address] ACUTE ILLNESS 10/29/2012 Patient Education: Patient Medication Summary Completed 10/29/2012 Appointment: María Elena Appiah WPtel: [address] [place] [address] ACUTE ILLNESS 10/14/2012 Patient Education: Patient Medication Summary Completed 10/14/2012 Appointment: María Elena Appiah WPtel: [address] [place] [address] UA 09/27/2012 Patient Education: Patient Medication Summary Completed 09/27/2012 Appointment: María Elena Appiah WPtel: [address] [place] [address] ACUTE ILLNESS 09/25/2012 Patient Education: Patient Medication Summary Completed 09/25/2012 Appointment: María Elena Appiah WPtel: [address] [place] [address] BP CHECK 09/24/2012 Appointment: María Elena Appiah WPtel: [address] [place], [place] [id number] ACUTE ILLNESS 08/29/2012 Patient Education: Patient Medication Summary Completed 08/29/2012 Visit Plan: Cryotherapy as above See Karlos m for right ear lesion--probable MOHs procedure Increase amlodopine to 10mg daily 08/12/2012 Appointment: María Elena Appiah WPtel: [address] [place], [place] [id number] OFFICE SURGERY 08/12/2012 Patient Education: Patient Medication Summary Completed 08/12/2012 Appointment: María Elena Appiah WPtel: [address] [place], [place] [phone] 05/03 vm on pt phone...pt called on 04/11 3 pt called wanting in had no one cancel so could not get her in for an appt sooner than 05/06. ACUTE ILLNESS 05/06/2012 Patient Education: Patient Medication Summary Completed 05/06/2012 Visit Plan: Pt wants to hold on any furt her sleep medications 04/03/2012 Appointment: María Elena Appiah WPtel: [address] [place], [place] [phone] FOLLOW UP 04/03/2012 Patient Education: Patient Medication Summary Completed 04/03/2012 Appointment: María Elena Appiah WPtel: [address] [place], [place] [phone] FOLLOW UP 03/19/2012 Patient Education: Patient Medication Summary Completed 03/19/2012 Appointment: María Elena Appiah WPtel: [address] [place], [place] [phone] BP CHECK 02/22/2012 Patient Education: Patient Medication Summary Completed 02/22/2012 Appointment: María Elena Appiah WPtel: [address] [place], [place] [phone] BP CHECK 02/21/2012 Patient Education: Patient Medication Summary Completed 02/21/2012 Visit Plan: Doxycycline and bactroban fo r foot Supportive care on ankles and knees Add norvasc for BP 02/20/2012 Appointment: María Elena Appiah WPtel: [address] [place] [address] ER Follow UP 02/20/2012 Patient Education: Patient Medication Summary Completed 02/20/2012 Appointment: María Elena Appiah WPtel: [address] [place] [address] ACUTE ILLNESS 01/30/2012 Patient Education: Patient Medication Summary Completed 01/30/2012 Appointment: María Elena Appiah WPtel: [address] [place] [address] ACUTE ILLNESS 01/24/2012 Patient Education: Patient Medication Summary Completed 01/24/2012 Visit Plan: Daily back stretches, moist heat, Biofreeze prn OMT done 01/10/2012 Appointment: María Elena Appiah WPtel: [address] [place] [address] ACUTE ILLNESS 01/10/2012 Patient Education: Patient Medication Summary Completed 01/10/2012 Appointment: María Elena Appiah WPtel: [address] [place] [address] FOLLOW UP 12/11/2011 Patient Education: Patient Medication Summary Completed 12/11/2011 Appointment: María Elena Appiah WPtel: [address] [place] [address] ACUTE ILLNESS 11/09/2011 Patient Education: Patient Medication Summary Completed 11/09/2011 Appointment: María Elena Appiah WPtel: [address] [place] [address] ACUTE ILLNESS 09/13/2011 Patient Education: Patient Medication Summary Completed 09/13/2011 Visit Plan: Check CBC, TSH, Free T4, CMP , ESR, Vit D, B12 now Start Prednisone today 08/31/2011 Appointment: María Elena Appiah WPtel: [address] [place] [address] ACUTE ILLNESS 08/31/2011 Patient Education: Patient Medication Summary Completed 08/31/2011 Appointment: María Elena Appiahtel: [address] [place] [address] [place] INJECTION 07/20/2011 Patient Education: Patient Medication Summary Completed 07/20/2011 Visit Plan: Continue current meds Monite r BP Cont stretches from PT 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 07/06/2011 Appointment: María Elena Appiah WPtel: [address] [place] [address] [place] FOLLOW UP 07/06/2011 Patient Education: Patient Medication Summary Completed 07/06/2011 Appointment: María Elena Appiahtel: [address] [place] [address] BP CHECK 06/06/2011 Patient Education: Patient Medication Summary Completed 06/06/2011 Visit Plan: Add Bystolic at 2.5mg QAM Ad d Robaxin 750mg 2 po q HS BP check in 2wks 05/22/2011 Appointment: María Elena Appiahtel: [address] [place] [address] FOLLOW UP 05/22/2011 Patient Education: Patient Medication Summary Completed 05/22/2011 Appointment: María Elena Appiahtel: [address] [place] [address] ER Follow UP 05/09/2011 Patient Education: Patient Medication Summary Completed 05/09/2011 Appointment: María Elena Appiahtel: [address] [place], [place] [phone] [place] FOLLOW UP 02/22/2011 Visit Plan: Rx written for Hydrocodone 1 0/325mg #240 See Ortho 02/14/2011 Appointment: María Elena Appiahtel: [address] [place], [place] [phone] OMT 02/14/2011 Patient Education: Patient [...] work. 02/03/2011 Appointment: Lashawn Eckert WPtel: [address] [place] [address] ACUTE ILLNESS 02/03/2011 Patient Education: Patient Medication Summary Completed 02/03/2011 Visit Plan: OMT done Cont daily stretche s 01/31/2011 Appointment: María Elena Appiah WPtel: [address] [place] [address] ACUTE ILLNESS 01/31/2011 Patient Education: Patient Medication Summary Completed 01/31/2011 Visit Plan: Continue pain meds OMT done Proceed with PT No work this summer01/25/2011 Appointment: María Elena Appiah WPtel: [address] [place] [address] ACUTE ILLNESS 01/25/2011 Patient Education: Patient Medication Summary Completed 01/25/2011 Visit Plan: Start PT Long discussion abo ut getting pain meds from only us and can only have max of 4grams of tylenol per day Change to Hydrocodone 10/325mg 1- 2 po TID prn pain--#180 called to Radha 01/18/2011 Appointment: María Elena Appiahtel: [address] [place] [address] FOLLOW UP 01/18/2011 Patient Education: Patient Medication Summary Completed 01/18/2011 Visit Plan: Daily back stretches, moist heat, Biofreeze prn 11/29/2010 Appointment: María Elena Appiah: [address] [place] [address] ER Follow UP 11/29/2010 Patient Education: Patient Medication Summary Completed 11/29/2010 Visit Plan: Saline nasal flushes prn. Ty lenol/Motrin prn headache. Notify if persists/symptoms worsening. Finish augmentin Add Medrol Dose Pack 10/10/2010 Appointment: María Elena Appiah WPtel: [address] [place] [address] ACUTE ILLNESS 10/10/2010 Patient Education: Patient Medication Summary Completed 10/10/2010 Visit Plan: Cryotherapy x3 to multiple l esions on both forearms 07/19/2010 Appointment: María Elena Appiah WPtel: [address] [place] [address] OFFICE SURGERY 07/19/2010 Patient Education: Patient Medication Summary Completed 07/19/2010 Appointment: María Elena Appiahtel: [address] [place] [address] BP CHECK 07/06/2010 Patient Education: Patient Medication Summary Completed 07/06/2010 Appointment: María Elena Appiahtel: [address] [place] [address] BP CHECK 06/30/2010 Patient Education: Patient Medication Summary Completed 06/30/2010 Appointment: María Elena Appiah WPtel: [address] [place] [address] BP CHECK 06/20/2010 Patient Education: Patient Medication Summary Completed 06/20/2010 Visit Plan: Change Diovan to Exforge 160 /5mg QD OMT done to thoracics BP check in 2wks 06/07/2010 Appointment: María Elena Appiah WPtel: [address] [place] [address] [place] FOLLOW UP 06/07/2010 Patient Education: Patient Medication Summary Completed 06/07/2010 Appointment: María Elena Appiah WPtel: [address] [place] [address] BP CHECK 06/03/2010 Patient Education: Patient Medication Summary Completed 06/03/2010 Appointment: María Elena Appiah WPtel: [address] [place] [address] BP CHECK 06/01/2010 Patient Education: Patient Medication Summary Completed 06/01/2010 Visit Plan: Irritated skin tags to left neck x2 excised at base with scissors and base cauterized 05/30/2010 Appointment: María Elena Appiah WPtel: [address] [place] [address] OFFICE SURGERY 05/30/2010 Patient Education: Patient Medication Summary Completed 05/30/2010 Visit Plan: Saline nasal flushes prn. Ty lenol/Motrin prn headache. Notify if persists/symptoms worsening. Restart Nasonex Has allergy testing set for May 25 04/27/2010 Appointment: María Elena Appiah WPtel: [address] [place] [address] ACUTE ILLNESS 04/27/2010 Patient Education: Patient Medication Summary Completed 04/27/2010 Visit Plan: Saline nasal flushes prn. Ty lenol/Motrin prn headache. Notify if persists/symptoms worsening. Omnaris BID plus injections 04/05/2010 Appointment: María Elena Appiah WPtel: [address] [place] [address] ACUTE ILLNESS 04/05/2010 Patient Education: Patient Medication Summary Completed 04/05/2010 Visit Plan: Saline nasal flushes prn. Ty lenol/Motrin prn headache. Notify if persists/symptoms worsening. 03/09/2010 Appointment: María Elena Appiah WPtel: [address] [place] [address] ACUTE ILLNESS 03/09/2010 Patient Education: Patient Medication Summary Completed 03/09/2010 Visit Plan: Cont Clonidine as is Cont Pr emarin Fwup with surgery as scheduled 03/03/2010 Appointment: María Elena Appiah WPtel: [address] [place], [place] [phone] FOLLOW UP 03/03/2010 Patient Education: Patient Medication Summary Completed 03/03/2010 Visit Plan: Check Pelvic US now Discusse tacho Sal C vs Hysterectomy 01/17/2010 Appointment: María Elena Appiah WPtel: [address] [place], [place] [phone] ACUTE ILLNESS 01/17/2010 Patient Education: Patient Medication Summary Completed 01/17/2010 Visit Plan: Check fasting lab and schedu le Mammogram 2gm Na Diet Trial of Ambien 10mg qhs Fwup pending lab results 12/27/2009 Appointment: María Elena Appiah WPtel: [address] [place], [place] [phone] ESTABLISHED PATIENT 12/27/2009 Patient Education: Patient Medication Summary Completed 12/27/2009 Referral: Canelo Overton WPtel: [phone] [id number] [place] Referral Initiated Referral: Philipp Flores WPtel: [address] [id number] [place] Referral Appointment Requested Instructions Comment . [...]
--- OUTSIDE RECORDS SUMMARY | 2020-03-13 06:53 | XMS REPORT | CCD ---
Author Author Gale Appiah D.O. Organization [facility] Address [address] [place] [id number] Phone Care Team Providers Care Magnetic Testing Technician Name Role Phone María Elena Appiah D.O., PP Unavailable CCM Unavailable Summary Purpose Interface Exchange Family History Family History data not found Social History Social History Element Codes Description Effective Dates Tobacco history SNOMED CT: 390830362 Never smoker 05/22/2011 Allergies, Adverse Reactions, Alerts [...] Fill Instructions gabapentin 300 mg capsule RxNorm: 597643 TAKE ONE CAPSU LE BY MOUTH EVERY NIGHT AT BEDTIME 09/19/2019 No Stop Date Active baclofen 10 mg tablet RxNorm: 362774 TAKE ONE TABLET BY MOUTH THREE TIMES A DAY NEEDED 09/19/2019 No Stop Date Active Klor-Con 8 mEq tablet,extended release RxNorm: 293543 T FARRUKH ONE TABLET BY MOUTH TWICE A DAY 1 Tablet(s) Oral two times a day 09/19/2019 10/19/2019 Act darion duloxetine 60 mg capsule,delayed release RxNorm: 238429 TAKE ONE CAPSULE BY MOUTH DAILY 09/11/2019 No Stop Date Active Lipitor 10 mg tablet RxNorm: 157083 TAKE ONE TABLET BY MOUTH AT BEDTIME 09/11/2019 No Stop Date Active lisinopril 20 mg tablet RxNorm: 270377 TAKE ONE TABLET BY MOUTH DAILY .... THIS REPLACE 10MG TABLETS 09/11/2019 No Stop Date Active triamterene 75 mg-hydrochlorothiazide 50 mg tablet RxNorm: 3 94363 TAKE ONE TABLET BY MOUTH DAILY 09/11/2019 No Stop Date Active allopurinol 300 mg tablet RxNorm: 856156 TAKE ONE TABLET BY LOPEZ TH DAILY 09/11/2019 No Stop Date Active celecoxib 200 mg capsule RxNorm: 689479 TAKE ONE CAPSUL E BY MOUTH TWICE A DAY NEEDED FOR PAIN 09/11/2019 No Stop Date Active clonidine HCl 0.1 mg tablet RxNorm: 634324 TAKE ONE TAB LET BY MOUTH FOUR TIMES A DAY 09/11/2019 No Stop Date Active doxepin 25 mg capsule RxNorm: 4637210 1 Capsule(s) Oral every night at bedtime as needed for sleep 08/21/2019 11/18/2019 Active hydrocodone 10 mg-acetaminophen 325 mg tablet RxNorm: 556343 1-2 Tablet(s) PO TID 08/12/2019 No Stop Date Active as needed for pa in - Previous quantity #240, will start dosing for #180 in April 2011 per Doctor Td. Medrol (Dustin) 4 mg tablets in a dose pack RxNorm: 999765 Tablet(s) Oral As Directed 07/21/2019 No Stop Date Active Premarin 1.25 mg tablet RxNorm: 852308 1 Tablet(s) Oral QD 07/02/20 19 03/28/2020 Active hydrocodone 10 mg-acetaminophen 325 mg tablet RxNorm: 015816 1-2 Tablet(s) PO TID 07/01/2019 08/11/2019 Inactive as needed for pa in - Previous quantity #240, will start dosing for #180 in April 2011 per Doctor Td. gabapentin 300 mg capsule RxNorm: 263960 1 Capsule(s) PO QHS 201809/18/2019 Inactive celecoxib 200 mg capsule RxNorm: 368349 1 Capsule(s) Or al two times a day as needed for pain 06/27/2019 06/27/2019 Inactive Singulair 10 mg tablet RxNorm: 769451 TAKE ONE TABLET BY MOUTH JOSÉ Y 06/24/2019 No Stop Date Active furosemide 40 mg tablet RxNorm: 350983 TAKE ONE TABLET BY MOUTH EVERY MORNING NEEDED FOR EDEMA . TAKE WITH POTASSIUM 06/24/2019 No Stop Date Active doxepin 25 mg capsule RxNorm: 1201672 TAKE ONE CAPSULE B Y MOUTH EVERY NIGHT AT BEDTIME NEEDED FOR SLEEP 06/24/2019 08/20/2019 Inactive lisinopril 20 mg tablet RxNorm: 429130 TAKE ONE TABLET BY MOUTH DAILY .... THIS REPLACE 10MG TABLETS 06/24/2019 09/10/2019 Inactive nystatin-triamcinolone 100,000 unit/g-0.1 % topical cream Rx Norm: 0354024 1 Application Topical two times a day 06/12/2019 06/19/2019 Inactive apply BID for 1 week nystatin-triamcinolone 100,000 unit/g-0.1 % topical cream Rx Norm: 3474308 1 Application Topical two times a day 06/12/2019 06/11/2019 Inactive apply BID for 1 week hydrocodone 10 mg-acetaminophen 325 mg tablet RxNorm: 449742 1-2 Tablet(s) PO QID as needed for pain MUST LAST 30 DAYS 05/28/2019 06/26/2019 Inactiv e (Response to an electronic controlled substance refill request - RxReferenceNumber: [id number]) baclofen 20 mg tablet RxNorm: 019914 1 Tablet(s) PO TID as needed for muscle spasm 05/19/2019 05/27/2019 Inactive gabapentin 300 mg capsule RxNorm: 511213 1 Capsule(s) PO QHS 201805/27/2019 Inactive lisinopril 20 mg tablet RxNorm: 916214 1 Tablet(s) PO Q D TAKE ONE TABLET BY MOUTH DAILY, REPLACES 10 MG DOSE 05/19/2019 06/23/2019 Inactive doxepin 25 mg capsule RxNorm: 6815507 TAKE ONE CAPSULE B Y MOUTH EVERY NIGHT AT BEDTIME NEEDED FOR SLEEP 05/16/2019 06/14/2019 Inactive lisinopril 20 mg tablet RxNorm: 874436 TAKE ONE TABLET BY MOUTH DAILY, REPLACES 10 MG DOSE 05/16/2019 05/18/2019 Inactive Singulair 10 mg tablet RxNorm: 459738 TAKE ONE TABLET BY MOUTH JOSÉ Y 05/16/2019 06/14/2019 Inactive gabapentin 300 mg capsule RxNorm: 970908 1 Capsule(s) PO QHS 201805/04/2019 Inactive estropipate 1.5 mg tablet RxNorm: 427107 1 Tablet(s) PO QD 05/05/2005/27/2019 Inactive estropipate 1.5 mg tablet RxNorm: 816743 1 Tablet(s) PO QD 05/05/2005/04/2019 Inactive gabapentin 300 mg capsule RxNorm: 391861 1 Capsule(s) PO QHS 201805/18/2019 Inactive hydrocodone 10 mg-acetaminophen 325 mg tablet RxNorm: 642247 1-2 Tablet(s) PO QID as needed for pain MUST LAST 30 DAYS 04/25/2019 05/24/2019 Inactiv e (Response to an electronic controlled substance refill request - RxReferenceNumber: [id number]) metoprolol tartrate 100 mg tablet RxNorm: 696205 TAKE O NE TABLET BY MOUTH TWICE A DAY 04/24/2019 06/22/2019 Inactive cyclobenzaprine 10 mg tablet RxNorm: 029251 TAKE ONE TA BLET BY MOUTH THREE TIMES A DAY NEEDED FOR MUSCLE SPASMS 04/24/2019 05/18/2019 Inactive Lyrica 75 mg capsule RxNorm: 801881 1 Capsule(s) PO QHS 03/25/2019 Inactive duloxetine 60 mg capsule,delayed release RxNorm: 435285 TAKE ONE CAPSULE BY MOUTH DAILY 03/21/2019 05/19/2019 Inactive triamterene 75 mg-hydrochlorothiazide 50 mg tablet RxNorm: 3 65731 TAKE ONE TABLET BY MOUTH DAILY 03/21/2019 05/19/2019 Inactive Klor-Con 8 mEq tablet,extended release RxNorm: 477564 T FARRUKH ONE TABLET BY MOUTH TWICE A DAY 03/21/2019 09/18/2019 Inactive Lipitor 10 mg tablet RxNorm: 150224 TAKE ONE TABLET BY MOUTH AT BEDTIME 03/21/2019 09/10/2019 Inactive clonidine HCl 0.1 mg tablet RxNorm: 268234 TAKE ONE TAB LET BY MOUTH FOUR TIMES A DAY 03/21/2019 05/19/2019 Inactive allopurinol 300 mg tablet RxNorm: 888294 TAKE ONE TABLET BY LOPEZ TH DAILY 03/21/2019 05/19/2019 Inactive hydrocodone 10 mg-acetaminophen 325 mg tablet RxNorm: 629809 1-2 Tablet(s) PO QID as needed for pain MUST LAST 30 DAYS 02/28/2019 03/29/2019 Inactiv e (Response to an electronic controlled substance refill request - RxReferenceNumber: [id number]) furosemide 40 mg tablet RxNorm: 434341 TAKE ONE TABLET BY MOUTH EVERY MORNING NEEDED FOR EDEMA . TAKE WITH POTASSIUM 02/21/2019 03/22/2019 Inactive cyclobenzaprine 10 mg tablet RxNorm: 709243 TAKE ONE TA BLET BY MOUTH THREE TIMES A DAY NEEDED FOR MUSCLE SPASMS 02/21/2019 04/21/2019 Inactive lisinopril 20 mg tablet RxNorm: 275695 TAKE ONE TABLET BY MOUTH DAILY, REPLACES 10 MG DOSE 02/21/2019 05/15/2019 Inactive doxepin 25 mg capsule RxNorm: 3727727 TAKE ONE CAPSULE B Y MOUTH EVERY NIGHT AT BEDTIME NEEDED FOR SLEEP 02/21/2019 05/15/2019 Inactive nystatin 100,000 unit/gram topical cream RxNorm: 426512 APPLY TO AFFECTED AREA(S) TWO TIMES A DAY 02/21/2019 03/22/2019 Inactive estradiol 1 mg tablet RxNorm: 760461 2 Tablet(s) PO QD replaces premarin 01/22/2019 05/04/2019 Inactive lisinopril 20 mg tablet RxNorm: 388537 TAKE ONE TABLET BY MOUTH DAILY, REPLACES 10 MG DOSE 01/20/2019 02/18/2019 Inactive cyclobenzaprine 10 mg tablet RxNorm: 069370 TAKE ONE TA BLET BY MOUTH THREE TIMES A DAY NEEDED FOR MUSCLE SPASMS 01/20/2019 02/18/2019 Inactive metoprolol tartrate 100 mg tablet RxNorm: 009598 TAKE O NE TABLET BY MOUTH TWICE A DAY 01/20/2019 02/18/2019 Inactive cyclobenzaprine 10 mg tablet RxNorm: 051551 TAKE ONE TA BLET BY MOUTH THREE TIMES A DAY NEEDED FOR MUSCLE SPASMS 12/19/2018 01/17/2019 Inactive lisinopril 20 mg tablet RxNorm: 943007 TAKE ONE TABLET BY MOUTH DAILY, REPLACES 10 MG DOSE 12/19/2018 01/17/2019 Inactive duloxetine 60 mg capsule,delayed release RxNorm: 937507 TAKE ONE CAPSULE BY MOUTH DAILY 12/19/2018 01/17/2019 Inactive Lipitor 10 mg tablet RxNorm: 528707 TAKE ONE TABLET BY MOUTH AT BEDTIME 12/19/2018 01/17/2019 Inactive cyclobenzaprine 10 mg tablet RxNorm: 163023 1 Tablet(s) PO TID as needed for muscle spasm 11/19/2018 12/18/2018 Inactive Singulair 10 mg tablet RxNorm: 365533 1 Tablet(s) PO QD 11/19/2018 Inactive lisinopril 20 mg tablet RxNorm: 066250 TAKE ONE TABLET BY MOUTH DAILY, REPLACES 10 MG DOSE 11/15/2018 12/18/2018 Inactive hydrocodone 10 mg-acetaminophen 325 mg tablet RxNorm: 484516 1-2 Tablet(s) PO QID as needed for pain MUST LAST 30 DAYS 11/13/2018 12/12/2018 Inactiv e (Response to an electronic controlled substance refill request - RxReferenceNumber: [id number]) nystatin 100,000 unit/gram topical cream RxNorm: 830028 APPLY TO AFFECTED AREA(S) TWO TIMES A DAY 10/23/2018 11/06/2018 Inactive lisinopril 20 mg tablet RxNorm: 554770 1 Tablet(s) PO QD replac es 10mg dose 10/18/2018 11/14/2018 Inactive hydrocodone 10 mg-acetaminophen 325 mg tablet RxNorm: 306612 1-2 Tablet(s) QID as needed for pain MUST LAST 30 DAYS 10/08/2018 11/06/2018 Inactive (Response to an electronic controlled substance refill request - RxReferenceNumber: [id number]) lisinopril 10 mg tablet RxNorm: 774278 1 Tablet(s) PO QD 10/03/2018 0 01/21/2019 Inactive Celebrex 200 mg capsule RxNorm: 616081 TAKE ONE CAPSULE BY MOUT H TWICE A DAY 09/30/2018 05/04/2019 Inactive cyclobenzaprine 10 mg tablet RxNorm: 631707 TAKE ONE TA BLET BY MOUTH THREE TIMES A DAY NEEDED FOR MUSCLE SPASMS 09/30/2018 11/18/2018 Inactive doxepin 25 mg capsule RxNorm: 1376063 TAKE ONE CAPSULE B Y MOUTH EVERY NIGHT AT BEDTIME NEEDED 09/05/2018 10/16/2018 Inactive omeprazole 40 mg capsule,delayed release RxNorm: 673009 TAKE ONE CAPSULE BY MOUTH DAILY 09/05/2018 01/21/2019 Inactive furosemide 40 mg tablet RxNorm: 299397 TAKE ONE TABLET BY MOUTH EVERY MORNING NEEDED FOR EDEMA . TAKE WITH POTASSIUM 09/05/2018 11/03/2018 Inactive phentermine 37.5 mg tablet RxNorm: 818759 1 Tablet(s) PO QAM 201701/21/2019 Inactive doxepin 25 mg capsule RxNorm: 9926333 1 Capsule(s) PO QH S as needed for sleep TAKE ONE CAPSULE BY MOUTH EVERY NIGHT AT BEDTIME NEEDED 08/27/2018 09/04/2018 Inactive Keflex 500 mg capsule RxNorm: 921761 1 Capsule(s) PO TID 08/09/2018 1 10/19/2017 Inactive Diflucan 100 mg tablet RxNorm: 788731 1 Tablet(s) PO QD 08/09/2018 Inactive Premarin 1.25 mg tablet RxNorm: 732706 2 Tablet(s) PO QD 08/09/2018 0 05/04/2019 Inactive Zofran ODT 4 mg disintegrating tablet RxNorm: 645142 1 Tablet(s) PO Q4H as needed for nausea 08/09/2018 01/21/2019 Inactive metoprolol tartrate 100 mg tablet RxNorm: 183577 TAKE O NE TABLET BY MOUTH TWICE A DAY 2018 10/04/2018 Inactive doxepin 25 mg capsule RxNorm: 6091388 TAKE ONE CAPSULE B Y MOUTH EVERY NIGHT AT BEDTIME NEEDED 2018 08/26/2018 Inactive cyclobenzaprine 10 mg tablet RxNorm: 262064 TAKE ONE TA BLET BY MOUTH THREE TIMES A DAY NEEDED FOR MUSCLE SPASMS 2018 09/29/2018 Inactive hydrocodone 10 mg-acetaminophen 325 mg tablet RxNorm: 455116 1-2 Tablet(s) QID as needed for pain MUST LAST 30 DAYS 07/29/2018 08/27/2018 Inactive (Response to an electronic controlled substance refill request - RxReferenceNumber: [id number]) nystatin 100,000 unit/gram topical powder RxNorm: 918177 Applic ation TOP BID 07/22/2018 08/04/2018 Inactive doxepin 25 mg capsule RxNorm: 4604005 1 Capsule(s) PO QHS as needed 07/22/2018 08/05/2018 Inactive triamterene 75 mg-hydrochlorothiazide 50 mg tablet RxNorm: 3 37337 TAKE ONE TABLET BY MOUTH DAILY 07/05/2018 10/02/2018 Inactive duloxetine 60 mg capsule,delayed release RxNorm: 629904 TAKE ONE CAPSULE BY MOUTH DAILY 07/05/2018 09/02/2018 Inactive Klor-Con 8 mEq tablet,extended release RxNorm: 995662 T FARRUKH ONE TABLET BY MOUTH TWICE A DAY 07/05/2018 10/02/2018 Inactive Lipitor 10 mg tablet RxNorm: 489173 TAKE ONE TABLET BY MOUTH AT BEDTIME 07/05/2018 09/02/2018 Inactive allopurinol 300 mg tablet RxNorm: 278598 TAKE ONE TABLET BY LOPEZ TH DAILY 07/05/2018 10/02/2018 Inactive clonidine HCl 0.1 mg tablet RxNorm: 288188 TAKE ONE TAB LET BY MOUTH FOUR TIMES A DAY 07/05/2018 10/02/2018 Inactive hydrocodone 10 mg-acetaminophen 325 mg tablet RxNorm: 867533 1-2 Tablet(s) QID as needed for pain MUST LAST 30 DAYS 06/28/2018 07/27/2018 Inactive (Response to an electronic controlled substance refill request - RxReferenceNumber: [id number]) MediHoney (calcium alginate-honey) 4" X 5" bandage RxNorm: 1 Application TOP QD 06/17/2018 06/26/2018 Inactive honey-hydrocolloid dressing 4" X 5" RxNorm: 1 Application TOP QD 06/17/2018 07/16/2018 Inactive furosemide 40 mg tablet RxNorm: 452530 TAKE ONE TABLET BY MOUTH EVERY MORNING NEEDED FOR EDEMA . TAKE WITH POTASSIUM 06/10/2018 07/09/2018 Inactive This is a refill request. hydrocodone 10 mg-acetaminophen 325 mg tablet RxNorm: 262492 1-2 Tablet(s) QID as needed for pain MUST LAST 30 DAYS 05/30/2018 06/27/2018 Inactive (Response to an electronic controlled substance refill request - RxReferenceNumber: [id number]) acyclovir 800 mg tablet RxNorm: 596492 1 Tablet(s) PO 5x day 201705/22/2018 Inactive Premarin 1.25 mg tablet RxNorm: 877082 1-2 Tablet(s) PO QD 05/15/20 18 07/13/2018 Inactive cyclobenzaprine 10 mg tablet RxNorm: 073587 1 Tablet(s) PO TID as needed for muscle spasm 05/09/2018 05/08/2018 Inactive Medrol (Dustin) 4 mg tablets in a dose pack RxNorm: 925730 Tablet(s) PO As Directed 05/02/2018 06/16/2018 Inactive hydrocodone 10 mg-acetaminophen 325 mg tablet RxNorm: 904746 1-2 Tablet(s) QID as needed for pain MUST LAST 30 DAYS 04/30/2018 05/29/2018 Inactive (Response to an electronic controlled substance refill request - RxReferenceNumber: [id number]) duloxetine 60 mg capsule,delayed release RxNorm: 332713 TAKE ONE CAPSULE BY MOUTH DAILY 04/16/2018 05/15/2018 Inactive Celebrex 200 mg capsule RxNorm: 410896 TAKE ONE CAPSULE BY MOUT H TWICE A DAY 04/16/2018 06/14/2018 Inactive Singulair 10 mg tablet RxNorm: 954787 TAKE ONE TABLET BY MOUTH JOSÉ Y 04/16/2018 11/19/2018 Inactive Lipitor 10 mg tablet RxNorm: 861290 TAKE ONE TABLET BY MOUTH AT BEDTIME 04/16/2018 05/15/2018 Inactive hydrocodone 10 mg-acetaminophen 325 mg tablet RxNorm: 803639 1-2 Tablet(s) QID as needed for pain MUST LAST 30 DAYS 03/29/2018 04/27/2018 Inactive (Response to an electronic controlled substance refill request - RxReferenceNumber: [id number]) cyclobenzaprine 10 mg tablet RxNorm: 618009 1 Tablet(s) PO TID as needed for muscle spasm 03/18/2018 05/09/2018 Inactive omeprazole 40 mg capsule,delayed release RxNorm: 264392 1 Capsu le(s) PO QD 02/26/2018 08/24/2018 Inactive hydrocodone 10 mg-acetaminophen 325 mg tablet RxNorm: 580859 1-2 Tablet(s) QID as needed for pain MUST LAST 30 DAYS 02/26/2018 03/27/2018 Inactive (Response to an electronic controlled substance refill request - RxReferenceNumber: [id number]) metoprolol tartrate 100 mg tablet RxNorm: 733717 1 Tablet(s) PO BID 02/18/2018 08/05/2018 Inactive Lyrica 75 mg capsule RxNorm: 087826 1 Capsule(s) PO QHS 01/30/2018 Inactive phentermine 37.5 mg tablet RxNorm: 349684 1 Tablet(s) PO QAM 201706/16/2018 Inactive hydrocodone 10 mg-acetaminophen 325 mg tablet RxNorm: 625425 1-2 Tablet(s) QID as needed for pain MUST LAST 30 DAYS 01/29/2018 02/25/2018 Inactive (Response to an electronic controlled substance refill request - RxReferenceNumber: [id number]) Klor-Con 8 mEq tablet,extended release RxNorm: 286699 1 Tablet( s) PO BID 01/14/2018 07/04/2018 Inactive allopurinol 300 mg tablet RxNorm: 813828 1 Tablet(s) PO QD 01/15/20 18 07/04/2018 Inactive Lipitor 10 mg tablet RxNorm: 723204 1 Tablet(s) PO QHS 01/14/201812/2017 Inactive triamterene 75 mg-hydrochlorothiazide 50 mg tablet RxNorm: 3 11391 1 Tablet(s) PO QD 01/14/2018 07/04/2018 Inactive hydrocodone 10 mg-acetaminophen 325 mg tablet RxNorm: 580989 1-2 Tablet(s) QID as needed for pain MUST LAST 30 DAYS 12/27/2017 01/25/2018 Inactive (Response to an electronic controlled substance refill request - RxReferenceNumber: [id number]) Onglyza 5 mg tablet RxNorm: 283563 1 Tablet(s) PO QD 12/18/201701/29 Inactive metformin 500 mg tablet RxNorm: 525440 1 Tablet(s) PO BID 12/11/2017 12/10/2017 Inactive metformin 500 mg tablet RxNorm: 566919 1 Tablet(s) PO BID 12/11/2017 12/17/2017 Inactive furosemide 40 mg tablet RxNorm: 701638 1 Tablet(s) PO Q AM prn edema--take with potassium 12/11/2017 06/08/2018 Inactive cyclobenzaprine 10 mg tablet RxNorm: 090962 1 Tablet(s) PO TID as needed for muscle spasm 12/11/2017 03/18/2018 Inactive hydrocodone 10 mg-acetaminophen 325 mg tablet RxNorm: 408490 1-2 Tablet(s) QID as needed for pain MUST LAST 30 DAYS 10/23/2017 11/21/2017 Inactive (Response to an electronic controlled substance refill request - RxReferenceNumber: [id number]) Lipitor 10 mg tablet RxNorm: 307957 1 Tablet(s) PO QHS 10/16/201703/2018 Inactive cyclobenzaprine 10 mg tablet RxNorm: 405158 1 Tablet(s) PO TID as needed for muscle spasm 10/09/2017 12/10/2017 Inactive hydroxyzine HCl 25 mg tablet RxNorm: 863965 1 Tablet(s) PO BID as needed for anxiety 09/20/2017 01/29/2018 Inactive Effexor XR 75 mg capsule,extended release RxNorm: 689578 1 Caps ule(s) PO QD 09/20/2017 01/29/2018 Inactive metoprolol tartrate 100 mg tablet RxNorm: 223060 1 Tablet(s) PO BID 08/20/2017 02/18/2018 Inactive baclofen 20 mg tablet RxNorm: 703533 1 Tablet(s) PO TID as needed for muscle spasm 08/20/2017 01/21/2019 Inactive clonidine HCl 0.1 mg tablet RxNorm: 775043 1 Tablet(s) PO QID 08/2005/16/2018 Inactive Seroquel 25 mg tablet RxNorm: 106305 1 Tablet(s) PO QHS 08/17/2017 Inactive Seroquel 25 mg tablet RxNorm: 728292 1 Tablet(s) PO QHS 08/17/2017 Inactive Diflucan 100 mg tablet RxNorm: 864082 TAKE ONE TABLET BY MOUTH JOSÉ Y 07/25/2017 08/07/2017 Inactive hydrocodone 10 mg-acetaminophen 325 mg tablet RxNorm: 456429 1-2 Tablet(s) QID as needed for pain MUST LAST 30 DAYS 07/19/2017 08/17/2017 Inactive (Response to an electronic controlled substance refill request - RxReferenceNumber: [id number]) clindamycin 300 mg capsule RxNorm: 733356 1 Capsule(s) PO TID 07/1907/28/2017 Inactive clotrimazole-betamethasone 1 %-0.05 % topical cream RxNorm: 903587 Application TOP BID to elbow rash 07/19/2017 06/16/2018 Inactive Singulair 10 mg tablet RxNorm: 796340 Tablet(s) TAKE ONE TABLET BY MOUTH DAILY 07/18/2017 04/13/2018 Inactive triamterene 75 mg-hydrochlorothiazide 50 mg tablet RxNorm: 3 26607 1 Tablet(s) PO QD 07/18/2017 01/14/2018 Inactive Celebrex 200 mg capsule RxNorm: 849965 Capsule(s) TAKE ONE CAPSULE BY MOUTH TWICE A DAY 07/18/2017 10/15/2017 Inactive hydrocodone 10 mg-acetaminophen 325 mg tablet RxNorm: 750912 1-2 Tablet(s) QID as needed for pain MUST LAST 30 DAYS 06/19/2017 07/18/2017 Inactive (Response to an electronic controlled substance refill request - RxReferenceNumber: [id number]) hydrocodone 10 mg-acetaminophen 325 mg tablet RxNorm: 895292 1-2 Tablet(s) QID as needed for pain MUST LAST 30 DAYS 06/19/2017 06/18/2017 Inactive (Response to an electronic controlled substance refill request - RxReferenceNumber: [id number]) baclofen 20 mg tablet RxNorm: 611902 1 Tablet(s) PO TID as needed for muscle spasm 06/18/2017 08/20/2017 Inactive Medrol (Dustin) 4 mg tablets in a dose pack RxNorm: 002271 Tablet(s) PO As Directed 06/05/2017 07/18/2017 Inactive omeprazole 40 mg capsule,delayed release RxNorm: 464734 1 Capsu le(s) PO QD 04/20/2017 10/16/2017 Inactive Premarin 1.25 mg tablet RxNorm: 063465 1-2 Tablet(s) PO QD 04/11/20 17 05/15/2018 Inactive duloxetine 60 mg capsule,delayed release RxNorm: 077318 1 Capsu le(s) PO QD 04/11/2017 09/19/2017 Inactive furosemide 40 mg tablet RxNorm: 429380 1 Tablet(s) PO Q AM prn edema--take with potassium 04/11/2017 12/11/2017 Inactive Klor-Con 8 mEq tablet,extended release RxNorm: 741786 1 Tablet( s) PO BID 04/11/2017 01/14/2018 Inactive Lipitor 10 mg tablet RxNorm: 084573 1 Tablet(s) PO QHS 04/11/201702/2018 Inactive amlodipine 5 mg-benazepril 20 mg capsule RxNorm: 461608 1 Capsu le(s) PO QD 04/11/2017 01/29/2018 Inactive allopurinol 300 mg tablet RxNorm: 200772 1 Tablet(s) PO QD 04/11/2001/14/2018 Inactive clonidine HCl 0.1 mg tablet RxNorm: 148801 1 Tablet(s) PO QID 04/0508/19/2017 Inactive baclofen 20 mg tablet RxNorm: 797244 1 Tablet(s) PO TID as needed for muscle spasm 04/02/2017 06/18/2017 Inactive Premarin 1.25 mg tablet RxNorm: 639424 1-2 Tablet(s) PO QD 03/20/20 17 04/10/2017 Inactive hydrocodone 10 mg-acetaminophen 325 mg tablet RxNorm: 201960 1-2 Tablet(s) QID as needed for pain MUST LAST 30 DAYS 03/14/2017 01/21/2019 Inactive (Response to an electronic controlled substance refill request - RxReferenceNumber: [id number]) metoprolol tartrate 100 mg tablet RxNorm: 052583 1 Tablet(s) PO BID 02/12/2017 08/20/2017 Inactive hydrocodone 10 mg-acetaminophen 325 mg tablet RxNorm: 866524 1-2 Tablet(s) QID as needed for pain MUST LAST 30 DAYS 02/08/2017 03/09/2017 Inactive (Response to an electronic controlled substance refill request - RxReferenceNumber: [id number]) metoprolol tartrate 100 mg tablet RxNorm: 768643 TAKE O NE TABLET BY MOUTH TWICE A DAY 01/11/2017 02/12/2017 Inactive metoprolol tartrate 100 mg tablet RxNorm: 861226 1 Tablet(s) PO BID 12/18/2016 12/17/2016 Inactive metoprolol tartrate 100 mg tablet RxNorm: 652698 1 Tablet(s) PO BID 12/18/2016 01/10/2017 Inactive furosemide 40 mg tablet RxNorm: 331128 1 Tablet(s) PO Q AM prn edema--take with potassium 12/13/2016 02/10/2017 Inactive amitriptyline 100 mg tablet RxNorm: 309014 1 Tablet(s) PO QHS 11/2812/12/2016 Inactive baclofen 20 mg tablet RxNorm: 517633 1 Tablet(s) PO TID as needed for muscle spasm 11/14/2016 04/01/2017 Inactive triamterene 75 mg-hydrochlorothiazide 50 mg tablet RxNorm: 3 37645 1 Tablet(s) PO QD 11/14/2016 11/13/2016 Inactive metolazone 2.5 mg tablet RxNorm: 061648 TAKE ONE TABLET BY MOUTH DAILY NEEDED FOR EDEMA 11/14/2016 12/12/2016 Inactive triamterene 75 mg-hydrochlorothiazide 50 mg tablet RxNorm: 3 37286 1 Tablet(s) PO QD 11/14/2016 07/18/2017 Inactive amitriptyline 50 mg tablet RxNorm: 985316 TAKE ONE TABL ET BY MOUTH AT BEDTIME NEEDED FOR SLEEP 11/14/2016 11/27/2016 Inactive Cymbalta 60 mg capsule,delayed release RxNorm: 312535 1 Capsule (s) PO QHS 11/14/2016 12/12/2016 Inactive clonidine HCl 0.1 mg tablet RxNorm: 008088 1 Tablet(s) PO QID 11/1304/04/2017 Inactive amitriptyline 50 mg tablet RxNorm: 017764 1 Tablet(s) P O QHS as needed for sleep 11/01/2016 11/27/2016 Inactive duloxetine 60 mg capsule,delayed release RxNorm: 197200 TAKE ONE CAPSULE BY MOUTH DAILY 10/20/2016 01/17/2017 Inactive allopurinol 300 mg tablet RxNorm: 486769 TAKE ONE TABLET BY LOPEZ TH DAILY 10/20/2016 01/16/2017 Inactive Lyrica 75 mg capsule RxNorm: 984191 TAKE ONE CAPSULE BY MOUTH EVERY NIGHT AT BEDTIME 10/20/2016 12/10/2016 Inactive Klor-Con 8 mEq tablet,extended release RxNorm: 174336 T FARRUKH ONE TABLET BY MOUTH TWICE A DAY 10/20/2016 01/17/2017 Inactive Celebrex 200 mg capsule RxNorm: 551990 TAKE ONE CAPSULE BY MOUT H TWICE A DAY 10/20/2016 07/18/2017 Inactive Bystolic 10 mg tablet RxNorm: 290369 TAKE ONE TABLET BY MOUTH EVERY NIGHT AT BEDTIME 10/20/2016 12/17/2016 Inactive amlodipine 5 mg-benazepril 20 mg capsule RxNorm: 436674 TAKE ONE CAPSULE BY MOUTH EVERY NIGHT AT BEDTIME -- TO REPLACE AMLODOPINE 10/20/20162016 Inactive Lipitor 10 mg tablet RxNorm: 804677 TAKE ONE TABLET BY MOUTH EVERY NIGHT AT BEDTIME 10/20/2016 01/17/2017 Inactive alprazolam 0.5 mg tablet RxNorm: 339541 3 Tablet(s) PO QHS as needed for sleep/anxiety 09/20/2016 10/31/2016 Inactive Tamiflu 75 mg capsule RxNorm: 689422 1 Capsule(s) PO QD 09/19/2016 Inactive Lyrica 75 mg capsule RxNorm: 866708 1 Capsule(s) PO QHS 09/19/2016 Inactive prednisone 20 mg tablet RxNorm: 427740 1 Tablet(s) PO QD 08/10/2016 1 10/17/2015 Inactive doxycycline hyclate 100 mg capsule RxNorm: 9414247 1 Capsule(s) PO BID 08/10/2016 08/19/2016 Inactive Medrol (Dustin) 4 mg tablets in a dose pack RxNorm: 205286 Tablet(s) PO As Directed 07/31/2016 08/22/2016 Inactive Singulair 10 mg tablet RxNorm: 196935 TAKE ONE TABLET BY MOUTH JOSÉ Y 07/27/2016 07/18/2017 Inactive hydrocodone 10 mg-acetaminophen 325 mg tablet RxNorm: 199801 1-2 Tablet(s) QID as needed for pain MUST LAST 30 DAYS 07/26/2016 08/24/2016 Inactive (Response to an electronic controlled substance refill request - RxReferenceNumber: [id number]) alprazolam 0.5 mg tablet RxNorm: 244677 3 Tablet(s) PO QHS as needed for anxiety or sleep 07/26/2016 09/20/2016 Inactive clindamycin 300 mg capsule RxNorm: 959342 1 Capsule(s) PO TID 07/2007/29/2016 Inactive Diflucan 100 mg tablet RxNorm: 407666 1 Tablet(s) PO QD 07/20/2016 Inactive Levaquin 500 mg tablet RxNorm: 129256 1 Tablet(s) PO QD 07/17/2016 Inactive Levaquin 500 mg tablet RxNorm: 939111 1 Tablet(s) PO QD 07/10/2016 Inactive Levaquin 500 mg tablet RxNorm: 146013 1 Tablet(s) PO QD 07/10/2016 Inactive mupirocin 2 % topical ointment RxNorm: 012709 TOP Apply topically to affected areas twice daily 07/06/2016 09/18/2016 Inactive Singulair 10 mg tablet RxNorm: 162363 TAKE ONE TABLET BY MOUTH JOSÉ Y 06/21/2016 01/21/2019 Inactive alprazolam 0.5 mg tablet RxNorm: 261439 TAKE THREE TABL ETS BY MOUTH AT BEDTIME NEEDED FOR SLEEP OR STRESS 05/22/2016 06/20/2016 Inactive triamterene 75 mg-hydrochlorothiazide 50 mg tablet RxNorm: 3 18494 1 Tablet(s) PO QD 04/26/2016 10/21/2016 Inactive Premarin 1.25 mg tablet RxNorm: 123541 1-2 Tablet(s) PO QD 04/26/20 16 03/20/2017 Inactive Klor-Con 8 mEq tablet,extended release RxNorm: 598433 1 Tablet( s) PO BID 04/26/2016 10/19/2016 Inactive Celebrex 200 mg capsule RxNorm: 210362 1 Capsule(s) PO BID TAKE ONE CAPSULE BY MOUTH EVERY DAY 04/26/2016 10/19/2016 Inactive Lipitor 10 mg tablet RxNorm: 827128 1 Tablet(s) PO QHS 04/26/201605/2017 Inactive allopurinol 300 mg tablet RxNorm: 715767 1 Tablet(s) PO QD TAKE ONE TABLET BY MOUTH EVERY DAY 04/26/2016 10/19/2016 Inactive amlodipine 5 mg-benazepril 20 mg capsule RxNorm: 083601 1 Capsule(s) PO QHS replaces amlodopine 04/26/2016 10/19/2016 Inactive duloxetine 60 mg capsule,delayed release RxNorm: 059570 1 Capsu le(s) PO QD 04/26/2016 10/19/2016 Inactive Bystolic 10 mg tablet RxNorm: 967218 1 Tablet(s) PO QHS 04/26/2016 Inactive Singulair 10 mg tablet RxNorm: 135116 1 Tablet(s) PO QD TAKE ONE TABLET BY MOUTH DAILY 04/26/2016 06/20/2016 Inactive clonidine HCl 0.1 mg tablet RxNorm: 607365 1 Tablet(s) PO QID 04/2610/22/2016 Inactive hydrocodone 10 mg-acetaminophen 325 mg tablet RxNorm: 815370 1-2 Tablet(s) QID as needed for pain TAKE ONE TO TWO TABLETS BY MOUTH FOUR TIMES A DAY . MUST LAST 30 DAYS 03/31/2016 04/29/2016 Inactive (Response to an electronic controlled substance refill request - [id number]) Klor-Con 8 mEq tablet,extended release RxNorm: 355580 T FARRUKH ONE TABLET BY MOUTH TWICE A DAY 03/24/2016 04/22/2016 Inactive prednisone 20 mg tablet RxNorm: 005154 1 Tablet(s) PO QD 03/09/2016 0 03/08/2016 Inactive prednisone 20 mg tablet RxNorm: 208652 1 Tablet(s) PO QD 03/09/2016 0 03/13/2016 Inactive alprazolam 0.5 mg tablet RxNorm: 990895 3 Tablet(s) PO QHS as needed for sleep/stress 03/02/2016 01/21/2019 Inactive mupirocin 2 % topical ointment RxNorm: 951601 TOP twice daily to affected areas of face and neck 02/21/2016 04/25/2016 Inactive clonidine HCl 0.1 mg tablet RxNorm: 167000 TAKE ONE TAB LET BY MOUTH FOUR TIMES A DAY 02/15/2016 03/15/2016 Inactive clonidine HCl 0.1 mg tablet RxNorm: 814493 1 Tablet(s) PO QID 02/1404/25/2016 Inactive Premarin 1.25 mg tablet RxNorm: 428769 1-2 Tablet(s) PO QD 02/15/20 16 03/15/2016 Inactive Klor-Con 8 mEq tablet,extended release RxNorm: 399252 T FARRUKH ONE TABLET BY MOUTH TWICE A DAY 02/15/2016 03/15/2016 Inactive potassium chloride ER 20 mEq tablet,extended release(part/cr yst) RxNorm: 450669 2 Tablet(s) PO BID 02/15/2016 03/15/2016 Inactive Macrobid 100 mg capsule RxNorm: 743285 1 Capsule(s) PO BID 01/24/20 16 01/30/2016 Inactive prednisone 20 mg tablet RxNorm: 845264 Take 3tabs PO QD x 2 days, then 2 tabs PO QD x 2 days, then 1 tab PO QD x 2 days, then 1/2 tab PO QDy x 2 days 12/23/2015 04/25/2016 Inactive Klor-Con 8 mEq tablet,extended release RxNorm: 219129 T FARRUKH ONE TABLET BY MOUTH TWICE A DAY 12/20/2015 02/14/2016 Inactive alprazolam 1 mg tablet RxNorm: 855573 1 1/2 Tablet(s) PO QHS 201501/23/2016 Inactive nystatin 100,000 unit/gram topical cream RxNorm: 574253 APPLY TO AFFECTED AREA(S) TWO TIMES A DAY 11/30/2015 12/14/2015 Inactive Singulair 10 mg tablet RxNorm: 466022 TAKE ONE TABLET BY MOUTH JOSÉ Y 11/18/2015 04/25/2016 Inactive allopurinol 300 mg tablet RxNorm: 184938 1 Tablet(s) PO QD TAKE ONE TABLET BY MOUTH EVERY DAY 10/26/2015 04/22/2016 Inactive Singulair 10 mg tablet RxNorm: 427760 TAKE ONE TABLET BY MOUTH JOSÉ Y 10/26/2015 11/17/2015 Inactive duloxetine 60 mg capsule,delayed release RxNorm: 034694 1 Capsu le(s) PO QD 10/26/2015 04/22/2016 Inactive triamterene 75 mg-hydrochlorothiazide 50 mg tablet RxNorm: 3 34517 1 Tablet(s) PO QD 10/26/2015 11/14/2016 Inactive potassium chloride ER 20 mEq tablet,extended release(part/cr yst) RxNorm: 103492 2 Tablet(s) PO BID 10/26/2015 02/14/2016 Inactive Lipitor 10 mg tablet RxNorm: 068316 1 Tablet(s) PO QHS 10/26/2015 Inactive amlodipine 5 mg-benazepril 20 mg capsule RxNorm: 812827 1 Capsule(s) PO QHS replaces amlodopine 10/26/2015 04/22/2016 Inactive Bystolic 10 mg tablet RxNorm: 137934 1 Tablet(s) PO QHS 10/26/2015 Inactive amlodipine 5 mg-benazepril 20 mg capsule RxNorm: 910630 1 Capsule(s) PO QHS replaces amlodopine 10/06/2015 10/25/2015 Inactive amlodipine 5 mg tablet RxNorm: 637275 1 Tablet(s) PO QHS 09/30/2015 0 04/25/2016 Inactive metolazone 2.5 mg tablet RxNorm: 378601 TAKE ONE TABLET BY MOUTH DAILY NEEDED FOR EDEMA 09/30/2015 01/21/2019 Inactive duloxetine 60 mg capsule,delayed release RxNorm: 589806 1 Capsu le(s) PO QD 09/30/2015 10/25/2015 Inactive cephalexin 500 mg capsule RxNorm: 926800 1 Capsule(s) PO BID 201509/23/2015 Inactive mupirocin 2 % topical ointment RxNorm: 806228 TOP twice daily to affected areas of face and neck 09/14/2015 02/20/2016 Inactive baclofen 20 mg tablet RxNorm: 678855 1 Tablet(s) PO TID as needed for muscle spasm 09/01/2015 11/14/2016 Inactive clonidine HCl 0.1 mg tablet RxNorm: 826104 1 Tablet(s) PO QID 09/0102/14/2016 Inactive alprazolam 1 mg tablet RxNorm: 175230 1 1/2 Tablet(s) PO QHS 201409/09/2015 Inactive baclofen 20 mg tablet RxNorm: 309189 1 Tablet(s) PO TID as needed for muscle spasm 07/23/2015 09/01/2015 Inactive omeprazole 40 mg capsule,delayed release RxNorm: 774439 1 Capsu le(s) PO QD 07/23/2015 04/25/2016 Inactive alprazolam 1 mg tablet RxNorm: 177266 1 1/2 Tablet(s) PO QHS 201408/10/2015 Inactive Bystolic 10 mg tablet RxNorm: 226388 1 Tablet(s) PO BID 06/24/2015 Inactive allopurinol 300 mg tablet RxNorm: 720232 1 Tablet(s) PO QD TAKE ONE TABLET BY MOUTH EVERY DAY 06/23/2015 10/20/2015 Inactive alprazolam 1 mg tablet RxNorm: 816168 1 1/2 Tablet(s) PO QHS 201407/06/2015 Inactive clonidine HCl 0.1 mg tablet RxNorm: 212425 1 Tablet(s) PO QID 06/0209/01/2015 Inactive clonidine HCl 0.1 mg tablet RxNorm: 760092 1 Tablet(s) PO QID 06/0206/01/2015 Inactive Cymbalta 60 mg capsule,delayed release RxNorm: 393845 1 Capsule (s) PO QHS 06/02/2015 08/30/2015 Inactive Cymbalta 60 mg capsule,delayed release RxNorm: 707307 1 Capsule (s) PO QHS 06/02/2015 06/01/2015 Inactive clonidine HCl 0.1 mg tablet RxNorm: 473574 1 Tablet(s) PO TID 05/3106/01/2015 Inactive replaces 0.2mg dose metolazone 2.5 mg tablet RxNorm: 609536 TAKE ONE TABLET BY MOUTH DAILY NEEDED FOR EDEMA 05/21/2015 06/19/2015 Inactive Singulair 10 mg tablet RxNorm: 782232 TAKE ONE TABLET BY MOUTH JOSÉ Y 05/21/2015 10/17/2015 Inactive Cymbalta 30 mg capsule,delayed release RxNorm: 443234 1 Capsule (s) PO QHS 05/20/2015 11/14/2016 Inactive betamethasone valerate 0.1 % topical cream RxNorm: 353023 Appli cation TOP BID 05/10/2015 04/25/2016 Inactive Bactroban 2 % topical ointment RxNorm: 072181 Application TOP BID 0 05/10/2015 06/20/2015 Inactive baclofen 20 mg tablet RxNorm: 264103 1 Tablet(s) PO TID as needed 0 04/26/2015 07/23/2015 Inactive Lipitor 10 mg tablet RxNorm: 301614 1 Tablet(s) PO QHS 04/26/201508/2016 Inactive clonidine HCl 0.1 mg tablet RxNorm: 149233 1 Tablet(s) PO TID 04/2605/30/2015 Inactive replaces 0.2mg dose Klor-Con 8 mEq tablet,extended release RxNorm: 018215 1 Tablet( s) PO BID 04/26/2015 04/25/2016 Inactive metolazone 2.5 mg tablet RxNorm: 753490 1 Tablet(s) PO QD as ne eded for edema 04/26/2015 04/25/2015 Inactive triamterene 75 mg-hydrochlorothiazide 50 mg tablet RxNorm: 3 91981 1 Tablet(s) PO QD 04/26/2015 10/22/2015 Inactive Premarin 1.25 mg tablet RxNorm: 613734 1-2 Tablet(s) PO QD 04/26/20 15 10/22/2015 Inactive Bystolic 10 mg tablet RxNorm: 865154 1 Tablet(s) PO QAM TAKE ONE TABLET BY MOUTH EVERY MORNING 04/23/2015 06/23/2015 Inactive clonidine HCl 0.1 mg tablet RxNorm: 678203 1 Tablet(s) PO TID 03/2304/25/2015 Inactive replaces 0.2mg dose nystatin 100,000 unit/gram topical cream RxNorm: 013228 Applica tion TOP BID 03/23/2015 06/20/2015 Inactive baclofen 20 mg tablet RxNorm: 714852 1 Tablet(s) PO TID as needed 0 03/23/2015 04/25/2015 Inactive Premarin 1.25 mg tablet RxNorm: 232945 1-2 Tablet(s) PO QD 03/23/20 15 04/25/2015 Inactive Klor-Con 8 mEq tablet,extended release RxNorm: 973988 1 Tablet( s) PO BID 03/23/2015 04/25/2015 Inactive cefdinir 300 mg capsule RxNorm: 844121 2 Capsule(s) PO QD 03/16/2015 03/25/2015 Inactive baclofen 20 mg tablet RxNorm: 139552 1 Tablet(s) PO TID as needed 0 03/02/2015 03/22/2015 Inactive allopurinol 300 mg tablet RxNorm: 057335 1 Tablet(s) PO QD TAKE ONE TABLET BY MOUTH EVERY DAY 02/22/2015 05/22/2015 Inactive Klor-Con M20 mEq tablet,extended release RxNorm: 194486 2 Tablet(s) PO BID to use with lasix 02/22/2015 06/20/2015 Inactive clonidine HCl 0.1 mg tablet RxNorm: 323547 1 Tablet(s) PO TID 02/1903/22/2015 Inactive replaces 0.2mg dose Lipitor 10 mg tablet RxNorm: 960216 1 Tablet(s) PO QHS 01/20/201506/2015 Inactive Lipitor 10 mg tablet RxNorm: 245554 1 Tablet(s) PO QHS 01/20/2015 Inactive Singulair 10 mg tablet RxNorm: 132946 1 Tablet(s) PO QD TAKE ONE TABLET BY MOUTH EVERY DAY 11/20/2014 05/18/2015 Inactive Lipitor 10 mg tablet RxNorm: 700287 1 Tablet(s) PO QHS 11/20/201408/2015 Inactive allopurinol 300 mg tablet RxNorm: 847127 1 Tablet(s) PO QD TAKE ONE TABLET BY MOUTH EVERY DAY 11/20/2014 02/16/2015 Inactive Bystolic 10 mg tablet RxNorm: 380011 1 Tablet(s) PO QAM TAKE ONE TABLET BY MOUTH EVERY MORNING 11/20/2014 04/22/2015 Inactive Klor-Con 8 mEq tablet,extended release RxNorm: 185552 1 Tablet( s) PO BID 11/20/2014 02/17/2015 Inactive baclofen 20 mg tablet RxNorm: 108325 1 Tablet(s) PO TID as needed 0 11/20/2014 01/21/2019 Inactive baclofen 20 mg tablet RxNorm: 740070 1 Tablet(s) PO TID as needed 0 10/27/2014 11/19/2014 Inactive baclofen 20 mg tablet RxNorm: 991594 1 Tablet(s) PO TID as needed 0 10/26/2014 03/01/2015 Inactive allopurinol 300 mg tablet RxNorm: 932592 1 Tablet(s) PO QD TAKE ONE TABLET BY MOUTH EVERY DAY 10/26/2014 11/20/2014 Inactive Bystolic 10 mg tablet RxNorm: 362572 1 Tablet(s) PO QAM TAKE ONE TABLET BY MOUTH EVERY MORNING 10/26/2014 11/20/2014 Inactive clonidine HCl 0.1 mg tablet RxNorm: 343393 1 Tablet(s) PO TID 09/2805/27/2019 Inactive replaces 0.2mg dose clonidine HCl 0.1 mg tablet RxNorm: 033942 1 Tablet(s) PO TID 09/2802/18/2015 Inactive replaces 0.2mg dose baclofen 20 mg tablet RxNorm: 574530 1 Tablet(s) PO TID as needed 1 11/01/2013 08/30/2014 Inactive Lipitor 10 mg tablet RxNorm: 468099 1 Tablet(s) PO QHS 08/31/2014 Inactive baclofen 20 mg tablet RxNorm: 626014 1 Tablet(s) PO TID as needed 1 11/01/2013 10/26/2014 Inactive triamterene 75 mg-hydrochlorothiazide 50 mg tablet RxNorm: 3 28295 1 Tablet(s) PO QD 08/31/2014 02/26/2015 Inactive Klor-Con 8 mEq tablet,extended release RxNorm: 994853 1 Tablet( s) PO BID 08/31/2014 11/20/2014 Inactive baclofen 20 mg tablet RxNorm: 886977 1 Tablet(s) PO TID as needed 1 09/30/2013 10/25/2014 Inactive baclofen 20 mg tablet RxNorm: 012952 1 Tablet(s) PO TID as needed 1 09/30/2013 08/31/2014 Inactive omeprazole 40 mg capsule,delayed release RxNorm: 500625 1 Capsu le(s) PO QD 07/21/2014 07/23/2015 Inactive Flonase 50 mcg/actuation nasal spray,suspension RxNorm: 8963 23 1 [place] NASAL BID 07/15/2014 04/09/2017 Inactive hydrocodone 10 mg-acetaminophen 325 mg tablet RxNorm: 325480 1-2 Tablet(s) QID as needed for pain TAKE ONE TO TWO TABLETS BY MOUTH FOUR TIMES A DAY . MUST LAST 30 DAYS 06/30/2014 07/27/2014 Inactive (Response to an electronic controlled substance refill request - RxReferenceNumber: [id number]) baclofen 20 mg tablet RxNorm: 264770 1 Tablet(s) PO TID as needed 1 07/31/2014 Inactive Singulair 10 mg tablet RxNorm: 077709 1 Tablet(s) PO QD TAKE ONE TABLET BY MOUTH EVERY DAY 05/25/2014 11/20/2014 Inactive Bystolic 10 mg tablet RxNorm: 826775 TAKE ONE TABLET BY MOUTH E VERY MORNING 05/25/2014 09/21/2014 Inactive allopurinol 300 mg tablet RxNorm: 469143 1 Tablet(s) PO QD TAKE ONE TABLET BY MOUTH EVERY DAY 05/25/2014 10/21/2014 Inactive baclofen 20 mg tablet RxNorm: 083288 1 Tablet(s) PO TID as needed 0 05/25/2014 06/29/2014 Inactive allopurinol 300 mg tablet RxNorm: 260646 TAKE ONE TABLET BY LOPEZ TH EVERY DAY 05/25/2014 09/21/2014 Inactive Singulair 10 mg tablet RxNorm: 840532 1 Tablet(s) PO QD TAKE ONE TABLET BY MOUTH EVERY DAY 05/25/2014 05/24/2014 Inactive Bystolic 10 mg tablet RxNorm: 877029 1 Tablet(s) PO QAM TAKE ONE TABLET BY MOUTH EVERY MORNING 05/25/2014 10/21/2014 Inactive metolazone 2.5 mg tablet RxNorm: 054806 1 Tablet(s) PO QD as ne eded for edema 05/18/2014 04/25/2015 Inactive Lasix 40 mg tablet RxNorm: 511604 1 Tablet(s) PO QAM s hould take potassium supplementation with this medication 05/14/2014 05/17/2014 Inactive hydrocodone 10 mg-acetaminophen 325 mg tablet RxNorm: 762839 1-2 Tablet(s) QID as needed for pain TAKE ONE TO TWO TABLETS BY MOUTH FOUR TIMES A DAY . MUST LAST 30 DAYS 05/07/2014 06/05/2014 Inactive (Response to an electronic controlled substance refill request - RxReferenceNumber: [id number]) alprazolam 0.5 mg tablet RxNorm: 230788 TAKE ONE TABLET BY MOUTH TWICE A DAY , MUST LAST 30 DAYS 05/07/2014 05/22/2016 Inactive (Response to a n electronic controlled substance refill request - RxReferenceNumber: [id number]) diclofenac sodium 75 mg tablet,delayed release RxNorm: 25614 6 1 Tablet(s) PO BID for pain 04/24/2014 07/20/2014 Inactive Celebrex 200 mg capsule RxNorm: 118172 TAKE ONE CAPSULE BY MOUT H EVERY DAY 04/24/2014 07/20/2014 Inactive alprazolam 0.5 mg tablet RxNorm: 894491 TAKE ONE TABLET BY MOUTH TWICE A DAY , MUST LAST 30 DAYS 03/24/2014 04/22/2014 Inactive (Response to a n electronic controlled substance refill request - RxReferenceNumber: [id number]) diclofenac sodium 75 mg tablet,delayed release RxNorm: 20026 6 1 Tablet(s) PO BID for pain 03/24/2014 04/24/2014 Inactive clonidine HCl 0.1 mg tablet RxNorm: 098531 1 Tablet(s) PO TID 03/2409/28/2014 Inactive replaces 0.2mg dose Klor-Con 8 mEq tablet,extended release RxNorm: 078624 1 Tablet( s) PO BID 02/26/2014 08/31/2014 Inactive diclofenac sodium 75 mg tablet,delayed release RxNorm: 71461 6 1 Tablet(s) PO BID for pain 02/25/2014 03/24/2014 Inactive hydrocodone 10 mg-acetaminophen 325 mg tablet RxNorm: 507860 1-2 Tablet(s) QID as needed for pain TAKE ONE TO TWO TABLETS BY MOUTH FOUR TIMES A DAY . MUST LAST 30 DAYS 02/25/2014 03/26/2014 Inactive (Response to an electronic controlled substance refill request - RxReferenceNumber: [id number]) alprazolam 0.5 mg tablet RxNorm: 888950 Tablet(s) PO BI D as needed for anxiety TAKE ONE TABLET BY MOUTH TWICE A DAY , MUST LAST 30 DAYS 02/25/2014 Inactive (Response to an electronic controlled [place] bstance refill request - RxReferenceNumber: [id number]) [AttnRPh: Saving apply/adjudicate RxGRP:SG20 RxBIN:[id number] RxN: ID#:[id number]] alprazolam 0.5 mg tablet RxNorm: 180363 Tablet(s) TAKE ONE TABLET BY MOUTH TWICE A DAY , MUST LAST 30 DAYS 01/27/2014 02/24/2014 Inactive (Respo nse to an electronic controlled substance refill request - RxReferenceNumber: [id number]) [AttnRPh: Saving apply/adjudicate RxGRP:SG20 RxBIN:[id number] RxPCN: ID#:[id number]] hydrocodone 10 mg-acetaminophen 325 mg tablet RxNorm: 730148 1-2 Tablet(s) QID as needed for pain TAKE ONE TO TWO TABLETS BY MOUTH FOUR TIMES A DAY . MUST LAST 30 DAYS 01/27/2014 02/24/2014 Inactive (Response to an electronic controlled substance refill request - RxReferenceNumber: [id number]) alprazolam 0.5 mg tablet RxNorm: 374091 TAKE ONE TABLET BY MOUTH TWICE A DAY , MUST LAST 30 DAYS 01/27/2014 01/26/2014 Inactive (Response to a n electronic controlled substance refill request - RxReferenceNumber: [id number]) Premarin 1.25 mg tablet RxNorm: 299393 1-2 Tablet(s) PO QD 01/28/20 14 07/25/2014 Inactive alprazolam 0.5 mg tablet RxNorm: 460290 TAKE ONE TABLET BY MOUTH TWICE A DAY , MUST LAST 30 DAYS 01/27/2014 01/27/2014 Inactive (Response to a n electronic controlled substance refill request - RxReferenceNumber: [id number]) hydrocodone 10 mg-acetaminophen 325 mg tablet RxNorm: 100531 TAKE ONE TO TWO TABLETS BY MOUTH FOUR TIMES A DAY . MUST LAST 30 DAYS 01/27/20142013 Inactive (Response to an electronic controlled [place] bstance refill request - RxReferenceNumber: [id number]) Celebrex 200 mg capsule RxNorm: 351930 1 Capsule(s) PO QD TAKE ONE CAPSULE BY MOUTH EVERY DAY 12/29/2013 04/27/2014 Inactive hydrocodone 10 mg-acetaminophen 325 mg tablet RxNorm: 906339 1-2 Tablet(s) PO QID as needed for severe pain 12/29/2013 01/27/2014 Inactive allopurinol 300 mg tablet RxNorm: 044737 1 Tablet(s) PO QD TAKE ONE TABLET BY MOUTH EVERY DAY 12/29/2013 05/24/2014 Inactive alprazolam 0.5 mg tablet RxNorm: 959162 TAKE ONE TABLET BY MOUTH TWICE A DAY , MUST LAST 30 DAYS 12/29/2013 01/27/2014 Inactive (Response to a n electronic controlled substance refill request - RxReferenceNumber: [id number]) Celebrex 200 mg capsule RxNorm: 674769 1 Capsule(s) PO QD TAKE ONE CAPSULE BY MOUTH EVERY DAY 12/29/2013 12/29/2013 Inactive Bystolic 10 mg tablet RxNorm: 433465 1 Tablet(s) PO QAM TAKE ONE TABLET BY MOUTH EVERY MORNING 12/29/2013 05/24/2014 Inactive Bystolic 10 mg tablet RxNorm: 121668 1 Tablet(s) PO QAM TAKE ONE TABLET BY MOUTH EVERY MORNING 12/29/2013 12/29/2013 Inactive Singulair 10 mg tablet RxNorm: 515931 1 Tablet(s) PO QD TAKE ONE TABLET BY MOUTH EVERY DAY 12/29/2013 05/25/2014 Inactive hydrocodone 10 mg-acetaminophen 325 mg tablet RxNorm: 048275 TAKE ONE TO TWO TABLETS BY MOUTH FOUR TIMES A DAY . MUST LAST 30 DAYS 12/29/20132013 Inactive (Response to an electronic controlled [place] bstance refill request - RxReferenceNumber: [id number]) Trazadone 75mg Tablet RxNorm: 1 Tablet(s) PO QHS as needed 03/23/2014 Inactive Trazadone 75mg Tablet RxNorm: 1 Tablet(s) PO QHS 12/24/20132014 Inactive Soma 350 mg tablet RxNorm: 123446 Tablet(s) PO TAKE ON E TABLET BY MOUTH THREE TIMES A DAY NEEDED FOR MUSCLE SPASMS. THIS MUST LAST 30 DAYS BETWEEN REFILLS. 12/10/2013 12/22/2013 Inactive (Appended: Cont rolled substance eRx refill - RxReferenceNumber: [id number]) diclofenac sodium 75 mg tablet,delayed release RxNorm: 68705 6 1 Tablet(s) PO BID for pain 12/10/2013 02/24/2014 Inactive allopurinol 300 mg tablet RxNorm: 509162 1 Tablet(s) PO QD 11/20/19 14 12/29/2013 Inactive alprazolam 0.5 mg tablet RxNorm: 435408 2 Tablet(s) PO BID 11/13/19 14 12/29/2013 Inactive prn clonidine 0.1 mg tablet RxNorm: 433440 1 Tablet(s) PO TID 11/12/2013 02/09/2014 Inactive replaces 0.2mg dose Klor-Con M20 mEq tablet,extended release RxNorm: 769765 2 Tablet(s) PO BID to use with lasix 11/12/2013 05/10/2014 Inactive Singulair 10 mg tablet RxNorm: 479342 1 Tablet(s) PO QD 11/12/2013 Inactive hydrocodone 10 mg-acetaminophen 325 mg tablet RxNorm: 149614 1-2 Tablet(s) PO QID as needed for severe pain 11/12/2013 12/28/2013 Inactive Bystolic 10 mg tablet RxNorm: 749651 1 Tablet(s) PO QAM 11/12/2013 Inactive Soma 350 mg tablet RxNorm: 570550 Tablet(s) PO TAKE ON E TABLET BY MOUTH THREE TIMES A DAY NEEDED FOR MUSCLE SPASMS. THIS MUST LAST 30 DAYS BETWEEN REFILLS. 10/13/2013 12/10/2013 Inactive (Appended: Cont rolled substance eRx refill - RxReferenceNumber: [id number]) hydrocodone 10 mg-acetaminophen 325 mg tablet RxNorm: 428511 1-2 Tablet(s) PO QID as needed for severe pain 10/03/2013 11/11/2013 Inactive diclofenac sodium 75 mg tablet,delayed release RxNorm: 51001 8 1 Tablet(s) PO BID for pain 09/11/2013 12/10/2013 Inactive alprazolam 0.5 mg tablet RxNorm: 526884 1 Tablet(s) PO BID May refill on 04/26/13 09/01/2013 10/30/2013 Inactive prn hydrocodone 10 mg-acetaminophen 325 mg tablet RxNorm: 420008 1-2 Tablet(s) PO QID as needed for severe pain 09/01/2013 10/02/2013 Inactive triamterene 75 mg-hydrochlorothiazide 50 mg tablet RxNorm: 3 23290 1 Tablet(s) PO QD 08/04/2013 08/31/2014 Inactive cyclobenzaprine 10 mg tablet RxNorm: 248641 1 Tablet(s) PO TID prn spasm 08/04/2013 08/13/2013 Inactive clonidine 0.1 mg tablet RxNorm: 997575 1 Tablet(s) PO TID 08/04/2013 11/11/2013 Inactive replaces 0.2mg dose cyclobenzaprine 10 mg tablet RxNorm: 122895 1 Tablet(s) PO TID prn spasm 07/23/2013 08/01/2013 Inactive hydrocodone 10 mg-acetaminophen 325 mg tablet RxNorm: 087689 2 1-2 Tablet(s) PO QID as needed for severe pain 06/09/2013 08/07/2013 Inactive Singulair 10 mg tablet RxNorm: 381898 1 Tablet(s) PO QD 05/29/2013 Inactive Klor-Con 8 mEq tablet,extended release RxNorm: 356678 1 Tablet( s) PO BID 05/29/2013 02/26/2014 Inactive allopurinol 300 mg tablet RxNorm: 810365 1 Tablet(s) PO QD 05/29/20 13 11/19/2013 Inactive Bystolic 10 mg tablet RxNorm: 191378 1 Tablet(s) PO QAM take one daily in the morning. 05/29/2013 11/11/2013 Inactive scopolamine 1.5 mg 72 hr Transderm Patch RxNorm: 397248 Application TD Q72H for motion sickness 05/26/2013 07/22/2013 Inactive Soma 350 mg tablet RxNorm: 277765 1 Tablet(s) PO TID as needed for spasm 05/19/2013 10/13/2013 Inactive diclofenac sodium 75 mg tablet,delayed release RxNorm: 01205 8 1 Tablet(s) PO BID for pain 05/14/2013 07/22/2013 Inactive allopurinol 300 mg tablet RxNorm: 638954 1 Tablet(s) PO QD 04/25/20 13 05/28/2013 Inactive alprazolam 0.5 mg tablet RxNorm: 400287 1 Tablet(s) PO BID May refill on 04/26/13 04/25/2013 06/23/2013 Inactive prn Celebrex 200 mg capsule RxNorm: 196039 1 Capsule(s) PO QD 04/16/2013 12/29/2013 Inactive alprazolam 0.5 mg tablet RxNorm: 807416 1 Tablet(s) PO BID May refill on 04/26/13 04/16/2013 04/24/2013 Inactive prn Soma 350 mg tablet RxNorm: 571235 1 Tablet(s) PO TID as needed for spasm 04/16/2013 No Stop Date Active Lasix 40 mg tablet RxNorm: 154613 1 Tablet(s) PO QAM s hould take potassium supplementation with this medication 04/16/2013 06/14/2013 Inactive clonidine 0.1 mg tablet RxNorm: 523036 1 Tablet(s) PO TID 04/16/2013 08/03/2013 Inactive replaces 0.2mg dose prednisone 20 mg tablet RxNorm: 680077 1 Tablet(s) PO BID 04/16/2013 04/20/2013 Inactive diclofenac sodium 75 mg tablet,delayed release RxNorm: 54555 8 1 Tablet(s) PO BID for pain 04/14/2013 05/13/2013 Inactive hydrocodone 10 mg-acetaminophen 325 mg tablet RxNorm: 146766 2 1-2 Tablet(s) PO QID as needed for severe pain 04/14/2013 No Stop Date Active Lasix 40 mg tablet RxNorm: 423123 1 Tablet(s) PO QAM s hould take potassium supplementation with this medication 03/31/2013 04/15/2013 Inactive Celebrex 200 mg capsule RxNorm: 516388 1 Capsule(s) PO QD 03/31/2013 04/15/2013 Inactive alprazolam 0.5 mg tablet RxNorm: 842314 1 Tablet(s) PO BID 03/28/20 13 04/15/2013 Inactive prn hydrocodone 10 mg-acetaminophen 325 mg tablet RxNorm: 150272 2 1-2 Tablet(s) PO QID as needed for severe pain 03/10/2013 No Stop Date Active metformin ER 500 mg 24 hr tablet,extended release RxNorm: 86 1018 1 Tablet(s) PO QD 03/06/2013 07/22/2013 Inactive clindamycin 300 mg capsule RxNorm: 377674 2 Capsule(s) PO TID 03/0503/14/2013 Inactive Zaroxolyn 2.5 mg tablet RxNorm: 790790 1 Tablet(s) PO QAM 03/05/2013 05/19/2015 Inactive amlodipine 10 mg tablet RxNorm: 213006 1 Tablet(s) PO QD 03/03/2013 0 05/25/2013 Inactive Norvasc 10 mg tablet RxNorm: 376937 1 Tablet(s) PO QD 02/28/201307/11 Inactive Celebrex 200 mg capsule RxNorm: 975975 1 Capsule(s) PO QD 02/28/2013 03/30/2013 Inactive diclofenac sodium 75 mg tablet,delayed release RxNorm: 74721 8 1 Tablet(s) PO BID for pain 02/14/2013 03/15/2013 Inactive Soma 350 mg tablet RxNorm: 900273 1 Tablet(s) PO TID as needed for spasm 02/14/2013 No Stop Date Active hydrocodone 10 mg-acetaminophen 325 mg tablet RxNorm: 158626 2 1-2 Tablet(s) PO QID as needed for severe pain 02/14/2013 No Stop Date Active Norvasc 10 mg tablet RxNorm: 624878 1 Tablet(s) PO QD 02/10/201302/09 Inactive Celebrex 200 mg capsule RxNorm: 256225 1 Capsule(s) PO QD 01/27/2013 01/26/2013 Inactive Premarin 1.25 mg tablet RxNorm: 742517 1-2 Tablet(s) PO QD 01/28/20 13 06/25/2013 Inactive alprazolam 0.5 mg tablet RxNorm: 008585 1 Tablet(s) PO BID 01/28/20 13 02/25/2013 Inactive prn amlodipine 5 mg tablet RxNorm: 814727 1 Tablet(s) PO QD 01/27/2013 Inactive Celebrex 200 mg capsule RxNorm: 555995 1 Capsule(s) PO QD 01/27/2013 02/27/2013 Inactive gabapentin 600 mg tablet RxNorm: 783179 1 Tablet(s) PO QHS 01/16/20 13 07/22/2013 Inactive Soma 350 mg tablet RxNorm: 591898 1 Tablet(s) PO TID as needed for spasm 01/15/2013 No Stop Date Active hydrocodone 10 mg-acetaminophen 325 mg tablet RxNorm: 994287 2 1-2 Tablet(s) PO QID as needed for severe pain 01/15/2013 No Stop Date Active Soma 350 mg tablet RxNorm: 152617 1 Tablet(s) PO TID as needed for spasm 01/13/2013 No Stop Date Active alprazolam 0.5 mg tablet RxNorm: 140650 1 Tablet(s) PO BID 12/31/19 13 01/26/2013 Inactive prn diclofenac sodium 75 mg tablet,delayed release RxNorm: 08901 8 1 Tablet(s) PO BID for pain 12/09/2012 01/07/2013 Inactive gabapentin 600 mg tablet RxNorm: 514274 1 Tablet(s) PO QHS 12/10/19 13 01/07/2013 Inactive hydrocodone 10 mg-acetaminophen 325 mg tablet RxNorm: 027241 2 1-2 Tablet(s) PO QID as needed for severe pain 12/02/2012 No Stop Date Active Levaquin 750 mg tablet RxNorm: 497722 1 Tablet(s) PO QD 11/21/2012 Inactive Singulair 10 mg tablet RxNorm: 485967 1 Tablet(s) PO QD 11/11/2012 Inactive clonidine 0.2 mg tablet RxNorm: 016097 1 Tablet(s) PO TID 11/11/2012 04/15/2013 Inactive alprazolam 0.5 mg tablet RxNorm: 639461 1 Tablet(s) PO BID 11/12/19 13 12/10/2012 Inactive prn Klor-Con 8 mEq tablet,extended release RxNorm: 958232 1 Tablet( s) PO BID 11/11/2012 03/04/2013 Inactive hydrocodone 10 mg-acetaminophen 325 mg tablet RxNorm: 891328 2 1-2 Tablet(s) PO QID as needed for severe pain 11/06/2012 No Stop Date Active alprazolam 0.5 mg tablet RxNorm: 189395 1 Tablet(s) PO BID 10/15/19 13 11/10/2012 Inactive prn hydrocodone-acetaminophen 10 mg-325 mg tablet RxNorm: 333614 2 1-2 Tablet(s) PO QID as needed for severe pain 10/10/2012 10/09/2012 Inactive allopurinol 300 mg tablet RxNorm: 222429 1 Tablet(s) PO QD 09/20/19 13 12/18/2012 Inactive alprazolam 0.5 mg tablet RxNorm: 359393 1 Tablet(s) PO BID 09/17/19 13 10/14/2012 Inactive prn hydrocodone-acetaminophen 10 mg-325 mg tablet RxNorm: 193683 2 1-2 Tablet(s) PO QID as needed for severe pain 08/22/2012 08/21/2012 Inactive Norvasc 10 mg tablet RxNorm: 747274 1 Tablet(s) PO QD 08/12/201201/10 Inactive Premarin 1.25 mg tablet RxNorm: 372851 1-2 Tablet(s) PO QD 07/30/20 12 12/26/2012 Inactive alprazolam 0.5 mg tablet RxNorm: 013362 1 Tablet(s) PO BID 07/29/20 12 08/27/2012 Inactive prn Klor-Con 8 mEq tablet,extended release RxNorm: 942625 1 Tablet( s) PO BID 07/29/2012 11/10/2012 Inactive hydrocodone-acetaminophen 10 mg-325 mg tablet RxNorm: 276437 2 1-2 Tablet(s) PO QID as needed for severe pain 07/29/2012 No Stop Date Active Premarin 1.25 mg tablet RxNorm: 391536 1-2 Tablet(s) PO QD 07/29/20 12 07/29/2012 Inactive clonidine 0.2 mg tablet RxNorm: 439317 1 Tablet(s) PO TID 07/29/2012 10/28/2012 Inactive ketorolac 10 mg tablet RxNorm: 384543 1 Tablet(s) PO QID prn he adache 07/18/2012 No Stop Date Active hydrocodone-acetaminophen 10 mg-325 mg tablet RxNorm: 559324 2 1-2 Tablet(s) PO QID as needed for severe pain 07/03/2012 No Stop Date Active amlodipine 5 mg tablet RxNorm: 706134 1 Tablet(s) PO QD 07/02/2012 Inactive allopurinol 300 mg tablet RxNorm: 071538 1 Tablet(s) PO QD 07/02/2009/19/2012 Inactive Celebrex 200 mg capsule RxNorm: 271360 1 Capsule(s) PO QD for j oint pain 06/26/2012 10/23/2012 Inactive diclofenac sodium 75 mg tablet,delayed release RxNorm: 35674 8 1 Tablet(s) PO BID for pain 06/19/2012 09/16/2012 Inactive hydrocodone-acetaminophen 10 mg-325 mg tablet RxNorm: 171316 2 1-2 Tablet(s) PO QID as needed for severe pain 06/10/2012 No Stop Date Active alprazolam 0.5 mg tablet RxNorm: 389254 1 Tablet(s) PO BID 06/03/20 12 07/02/2012 Inactive prn ketorolac 10 mg tablet RxNorm: 376137 1 Tablet(s) PO Q8H 05/27/2012 0 01/21/2019 Inactive as needed for headache hydrocodone-acetaminophen 10 mg-325 mg tablet RxNorm: 459854 2 1-2 Tablet(s) PO QID as needed for severe pain 05/15/2012 No Stop Date Active allopurinol 300 mg tablet RxNorm: 925587 1 Tablet(s) PO QD 05/14/20 12 06/12/2012 Inactive allopurinol 300 mg tablet RxNorm: 725304 1 Tablet(s) PO QD 05/14/20 12 05/13/2012 Inactive amlodipine 5 mg tablet RxNorm: 849698 1 Tablet(s) PO QD 05/01/2012 Inactive amlodipine 5 mg Tab RxNorm: 184310 1 Tablet(s) PO QD 05/01/201204/30 Inactive Celebrex 200 mg capsule RxNorm: 481932 1 Capsule(s) PO QD for j oint pain 05/01/2012 06/25/2012 Inactive Singulair 10 mg tablet RxNorm: 513178 1 Tablet(s) PO QD 05/01/2012 Inactive alprazolam 0.5 mg tablet RxNorm: 601901 1 Tablet(s) PO BID 05/01/2005/30/2012 Inactive prn Celebrex 200 mg Cap RxNorm: 556293 1 Capsule(s) PO QD for joint radu n 05/01/2012 04/30/2012 Inactive hydrocodone-acetaminophen 10 mg-325 mg tablet RxNorm: 347179 2 1-2 Tablet(s) PO QID as needed for severe pain 04/19/2012 No Stop Date Active Lasix 40 mg tablet RxNorm: 250477 1 Tablet(s) PO RAZA ramirez take potassium supplementation with this medication 04/05/2012 06/03/2012 Inactive alprazolam 0.5 mg Tab RxNorm: 149931 1 Tablet(s) PO BID 04/05/2012 Inactive prn hydrocodone-acetaminophen 10 mg-325 mg Tab RxNorm: 5391312 1-2 Tablet(s) PO QID as needed for severe pain 03/25/2012 03/24/2012 Inactive clonidine 0.2 mg Tab RxNorm: 088016 1 Tablet(s) PO TID 03/08/2012 Inactive alprazolam 0.5 mg Tab RxNorm: 509801 1 Tablet(s) PO BID 03/08/2012 Inactive prn Soma 350 mg tablet RxNorm: 128110 1 Tablet(s) PO TID for spasm 02/0903/18/2012 Inactive clonidine 0.2 mg tablet RxNorm: 031942 1 Tablet(s) PO TID 03/08/2012 07/28/2012 Inactive Celebrex 200 mg Cap RxNorm: 342178 1 Capsule(s) PO QD for joint radu n 03/01/2012 04/29/2012 Inactive amlodipine 5 mg Tab RxNorm: 254789 1 Tablet(s) PO QD 02/26/201202/24 Inactive amlodipine 5 mg Tab RxNorm: 278691 1 Tablet(s) PO QD 02/26/201204/25 Inactive Bactroban 2 % Ointment RxNorm: 866298 Application TOP QID to sores 02/23/2012 No Stop Date Active amlodipine 2.5 mg tablet RxNorm: 462987 1 Tablet(s) PO QHS 02/20/20 12 02/25/2012 Inactive doxycycline hyclate 100 mg Cap RxNorm: 7079939 1 Capsule(s) PO BID 02/20/2012 02/29/2012 Inactive hydrocodone-acetaminophen 10 mg-325 mg Tab RxNorm: 9813947 1-2 T ablet(s) PO QID 02/08/2012 No Stop Date Active alprazolam 0.5 mg Tab RxNorm: 651862 1 Tablet(s) PO BID 02/08/2012 Inactive prn Singulair 10 mg Tab RxNorm: 594828 1 Tablet(s) PO QD 02/08/201204/30 Inactive Soma 350 mg Tab RxNorm: 062392 1 Tablet(s) PO TID for spasm 012 03/07/2012 Inactive Soma 350 mg Tab RxNorm: 043426 1 Tablet(s) PO TID for spasm 012 02/05/2012 Inactive diclofenac sodium 75 mg tablet,delayed release RxNorm: 31295 8 1 Tablet(s) PO BID for pain 02/01/2012 03/18/2012 Inactive Celebrex 200 mg Cap RxNorm: 213151 1 Capsule(s) PO QD for joint radu n 01/30/2012 02/28/2012 Inactive Lasix 40 mg Tab RxNorm: 133959 1 Tablet(s) PO QAM 01/24/2012 03/18/20 12 Inactive potassium chloride ER 20 mEq tablet,extended release(part/cr yst) RxNorm: 548049 2 Tablet(s) PO BID 01/24/2012 02/22/2012 Inactive alprazolam 0.5 mg Tab RxNorm: 108023 1 Tablet(s) PO BID 01/11/2012 Inactive prn hydrocodone-acetaminophen 10 mg-325 mg Tab RxNorm: 6333064 1-2 T ablet(s) PO QID 01/11/2012 No Stop Date Active Ambien 10 mg Tab RxNorm: 295685 1 Tablet(s) PO QHS 01/11/2012 012 Inactive Klor-Con 8 mEq Tab RxNorm: 526888 1 Tablet(s) PO BID 01/11/201201/22 Inactive diclofenac sodium 75 mg Tab, Delayed Release RxNorm: 099993 1 Tablet(s) PO BID for pain 01/10/2012 01/31/2012 Inactive Ambien 10 mg Tab RxNorm: 687136 1 Tablet(s) PO QHS 12/11/2011 012 Inactive alprazolam 0.5 mg Tab RxNorm: 297806 1 Tablet(s) PO BID 12/11/2011 Inactive prn hydrocodone 10 mg-acetaminophen 325 mg tablet RxNorm: 151404 1-2 Tablet(s) PO TID 11/28/2011 No Stop Date Active as needed for pa in - Previous quantity #240, will start dosing for #180 in April 2011 per Doctor Td. Ambien 10 mg Tab RxNorm: 964507 1 Tablet(s) PO QHS 11/09/2011 012 Inactive alprazolam 0.5 mg Tab RxNorm: 441839 1 Tablet(s) PO BID 11/09/2011 Inactive prn hydrocodone-acetaminophen 10 mg-325 mg Tab RxNorm: 2216912 1-2 T ablet(s) PO TID 11/06/2011 No Stop Date Active as needed for pain - Previous quantity #240, will start dosing for #180 in April 2011 per Doctor Td. Singulair 10 mg Tab RxNorm: 634183 1 Tablet(s) PO QD 10/13/201110/12 Inactive Singulair 10 mg Tab RxNorm: 309815 1 Tablet(s) PO QD 10/13/201102/06 Inactive hydrocodone-acetaminophen 10 mg-325 mg Tab RxNorm: 5419246 1-2 T ablet(s) PO TID 10/10/2011 10/09/2011 Inactive as needed for pain - Previous quantity #240, will start dosing for #180 in April 2011 per Doctor Td. hydrocodone-acetaminophen 10 mg-325 mg Tab RxNorm: 5652374 1-2 T ablet(s) PO TID 10/09/2011 No Stop Date Active as needed for pain - Previous quantity #240, will start dosing for #180 in April 2011 per Doctor Td. Klor-Con 8 mEq Tab RxNorm: 740423 1 Tablet(s) PO BID 10/02/201101/09 Inactive triamterene 75 mg-hydrochlorothiazide 50 mg tablet RxNorm: 3 13741 1 Tablet(s) PO QD 09/14/2011 03/06/2013 Inactive Ambien 10 mg Tab RxNorm: 021892 1 Tablet(s) PO QHS 09/14/2011 012 Inactive hydrocodone-acetaminophen 10 mg-325 mg Tab RxNorm: 7159375 1-2 T ablet(s) PO TID 09/14/2011 No Stop Date Active as needed for pain - Previous quantity #240, will start dosing for #180 in April 2011 per Doctor Td. alprazolam 0.5 mg Tab RxNorm: 774454 1 Tablet(s) PO BID 09/14/2011 Inactive prn Zithromax 500 mg Tab RxNorm: 9936751 1 Tablet(s) PO QD 09/13/201106/2012 Inactive prednisone 20 mg Tab RxNorm: 136785 1 Tablet(s) PO BID 08/31/2011 Inactive Ambien 10 mg Tab RxNorm: 727792 1 Tablet(s) PO QHS 08/17/2011 011 Inactive hydrocodone-acetaminophen 10 mg-325 mg Tab RxNorm: 4082188 1-2 T ablet(s) PO TID 08/17/2011 No Stop Date Active as needed for pain - Previous quantity #240, will start dosing for #180 in April 2011 per Doctor Td. clonidine 0.2 mg Tab RxNorm: 767531 1 Tablet(s) PO TID 08/17/201112/2011 Inactive Ambien 10 mg Tab RxNorm: 848928 1 Tablet(s) PO QHS 08/17/2011 019 Inactive alprazolam 0.5 mg Tab RxNorm: 577040 1 Tablet(s) PO BID 08/17/2011 Inactive prn hydrocodone-acetaminophen 10 mg-325 mg Tab RxNorm: 1777613 1-2 T ablet(s) PO TID 08/17/2011 08/16/2011 Inactive as needed for pain - Previous quantity #240, will start dosing for #180 in April 2011 per Doctor Td. Singulair 10 mg Tab RxNorm: 649832 1 Tablet(s) PO QD 08/17/201108/16 Inactive Klor-Con 8 mEq Tab RxNorm: 852181 1 Tablet(s) PO QD 08/17/20112011 Inactive alprazolam 0.5 mg Tab RxNorm: 620904 1 Tablet(s) PO BID 07/20/2011 Inactive prn Ambien 10 mg Tab RxNorm: 311468 1 Tablet(s) PO QHS 07/20/2011 012 Inactive Singulair 10 mg Tab RxNorm: 160889 1 Tablet(s) PO QD 07/20/201107/19 Inactive Premarin 1.25 mg tablet RxNorm: 166264 2 Tablet(s) PO QD 07/20/2011 0 01/21/2019 Inactive Premarin 1.25 mg tablet RxNorm: 867570 1-2 Tablet(s) PO QD 07/20/20 11 12/16/2011 Inactive Premarin 1.25 mg Tab RxNorm: 216814 1-2 Tablet(s) PO QD 07/06/2011 Inactive alprazolam 0.5 mg Tab RxNorm: 388116 1 Tablet(s) PO BID 06/22/2011 Inactive prn alprazolam 0.5 mg Tab RxNorm: 896824 1 Tablet(s) PO BID 06/22/2011 Inactive prn Premarin 1.25 mg Tab RxNorm: 535307 1 Tablet(s) PO QD m ay do 90 day fill if desired 06/22/2011 07/05/2011 Inactive hydrocodone-acetaminophen 10 mg-325 mg Tab RxNorm: 0871676 1-2 T ablet(s) PO TID 06/22/2011 No Stop Date Active as needed for pain - Previous quantity #240, will start dosing for #180 in April 2011 per Doctor Td. clonidine 0.2 mg Tab RxNorm: 042225 1 Tablet(s) PO TID 05/25/201103/2011 Inactive triamterene-hydrochlorothiazide 75 mg-50 mg Tab RxNorm: 3108 18 1 Tablet(s) PO QD 05/25/2011 09/13/2011 Inactive alprazolam 0.5 mg Tab RxNorm: 841017 1 Tablet(s) PO BID 05/25/2011 Inactive prn hydrocodone-acetaminophen 10 mg-325 mg Tab RxNorm: 9363377 1-2 T ablet(s) PO TID 05/25/2011 No Stop Date Active as needed for pain - Previous quantity #240, will start dosing for #180 in April 2011 per Doctor Td. Robaxin-750 750 mg Tab RxNorm: 832373 2 Tablet(s) PO QHS 05/22/2011 1 Inactive prn spasm hydrocodone-acetaminophen 10 mg-325 mg Tab RxNorm: 0930774 1-2 T ablet(s) PO TID 04/26/2011 No Stop Date Active as needed for pain - Previous quantity #240, will start dosing for #180 in April 2011 per Doctor Td. alprazolam 0.5 mg Tab RxNorm: 771302 1 Tablet(s) PO BID 04/25/2011 Inactive prn Klor-Con 8 mEq Tab RxNorm: 328149 1 Tablet(s) PO QD 03/30/20112010 Inactive Klor-Con 8 mEq Tab RxNorm: 191162 1 Tablet(s) PO QD 03/29/20112010 Inactive hydrocodone-acetaminophen 10 mg-325 mg Tab RxNorm: 4902483 1-2 T ablet(s) PO TID 03/20/2011 04/25/2011 Inactive as needed for pain - Previous quantity #240, will start dosing for #180 in April 2011 per Doctor Td. alprazolam 0.5 mg Tab RxNorm: 662763 1 Tablet(s) PO BID prn 011 03/30/2011 Inactive Ambien 10 mg Tab RxNorm: 070264 1 Tablet(s) PO QHS 03/01/2011 011 Inactive cyclobenzaprine 10 mg Tab RxNorm: 910236 1 Tablet(s) PO TID 011 03/18/2012 Inactive cyclobenzaprine 10 mg Tab RxNorm: 531679 1 Tablet(s) PO TID 011 01/08/2011 Inactive cyclobenzaprine 10 mg Tab RxNorm: 101560 1 Tablet(s) PO TID 011 12/20/2010 Inactive terbinafine 250 mg Tab RxNorm: 217397 1 Tablet(s) PO QD 12/12/2010 Inactive triamterene-hydrochlorothiazide 75 mg-50 mg Tab RxNorm: 3108 18 1 Tablet(s) PO QD 12/07/2010 06/04/2011 Inactive Klor-Con 8 8 mEq Tab RxNorm: 278717 1 Tablet(s) PO QD 12/07/201001/08 Inactive Premarin 1.25 mg Tab RxNorm: 746209 2 Tablet(s) PO QD 12/07/201001/08 Inactive clonidine 0.2 mg Tab RxNorm: 362633 1 Tablet(s) PO TID 12/07/2010 Inactive hydrocodone-acetaminophen 7.5 mg-650 mg Tab RxNorm: 940089 1 Ta blet(s) PO Q4H 12/05/2010 01/21/2019 Inactive hydrocodone-acetaminophen 7.5 mg-650 mg Tab RxNorm: 629153 1 Ta blet(s) PO Q4H 10/26/2010 11/14/2010 Inactive hydrocodone-acetaminophen 7.5 mg-650 mg Tab RxNorm: 695487 1 Ta blet(s) PO Q4H 10/13/2010 10/25/2010 Inactive hydrocodone-acetaminophen 7.5 mg-650 mg Tab RxNorm: 788072 1 Ta blet(s) PO Q4H 09/15/2010 09/12/2010 Inactive alprazolam 0.5 mg Tab RxNorm: 080509 1 Tablet(s) PO BID prn 011 09/12/2010 Inactive terbinafine 250 mg Tab RxNorm: 277596 1 Tablet(s) PO QD 09/05/2010 Inactive hydrocodone-acetaminophen 7.5 mg-650 mg Tab RxNorm: 069582 1 Ta blet(s) PO Q4H 08/29/2010 09/17/2010 Inactive alprazolam 0.5 mg Tab RxNorm: 931975 1 Tablet(s) PO BID prn 010 09/27/2010 Inactive alprazolam 0.5 mg Tab RxNorm: 926498 1 Tablet(s) PO BID prn 010 09/06/2010 Inactive Klor-Con 8 mEq Tab RxNorm: 854808 1 Tablet(s) PO QD 08/08/20102010 Inactive hydrocodone-acetaminophen 7.5 mg-650 mg Tab RxNorm: 704346 1 Ta blet(s) PO Q4H 08/08/2010 08/27/2010 Inactive Ambien 10 mg Tab RxNorm: 616772 1 Tablet(s) PO QHS 08/08/2010 Inactive clonidine 0.2 mg Tab RxNorm: 053093 1 Tablet(s) PO TID 08/08/2010 Inactive Premarin 1.25 mg Tab RxNorm: 221865 2 Tablet(s) PO QD 08/08/201009/12 Inactive Ambien 10 mg Tab RxNorm: 276370 1 Tablet(s) PO QHS 07/18/2010 Inactive alprazolam 0.5 mg Tab RxNorm: 311652 1 Tablet(s) PO BID prn 010 08/07/2010 Inactive hydrocodone-acetaminophen 7.5 mg-650 mg Tab RxNorm: 769796 1 Ta blet(s) PO Q4H 07/12/2010 07/31/2010 Inactive clonidine 0.2 mg Tab RxNorm: 604252 1 Tablet(s) PO TID 06/20/2010 Inactive terbinafine 250 mg Tab RxNorm: 708598 1 Tablet(s) PO QD 05/24/2010 Inactive Clonidine 0.2 mg Tab RxNorm: 052588 1 Tablet(s) PO TID 05/24/201006/2010 Inactive Ambien 10 mg Tab RxNorm: 686459 1 Tablet(s) PO QHS 05/24/2010 010 Inactive alprazolam 0.5 mg Tab RxNorm: 741080 1 Tablet(s) PO BID 05/24/2010 Inactive Klor-Con 8 mEq Tab RxNorm: 669195 1 Tablet(s) PO QD 05/24/20102009 Inactive alprazolam 0.5 mg Tab RxNorm: 412144 2 Tablet(s) PO QD prn 05/24/2007/17/2010 Inactive triamterene-hydrochlorothiazide 75 mg-50 mg Tab RxNorm: 3108 18 1 Tablet(s) PO QD 05/24/2010 11/19/2010 Inactive Ambien 10 mg Tab RxNorm: 125715 1 Tablet(s) PO QHS 05/23/2010 010 Inactive Alprazolam 0.5 mg Tab RxNorm: 512151 2 Tablet(s) PO QD prn 05/23/2005/23/2010 Inactive Premarin 1.25 mg Tab RxNorm: 040646 2 Tablet(s) PO QD 05/19/201007/12 Inactive Hydrocodone-Acetaminophen 7.5 mg-650 mg Tab RxNorm: 374054 1 Ta blet(s) PO Q4H 05/19/2010 03/20/2011 Inactive Prednisone 20 mg Tab RxNorm: 748857 1 Tablet(s) PO BID 05/17/2010 Inactive Prednisone 20 mg Tab RxNorm: 453074 1 Tablet(s) PO BID 05/06/201001/2010 Inactive Premarin 1.25 mg Tab RxNorm: 632584 Tablet(s) PO 2 -W-, and 1 Si-Rk-NpdBanner 05/05/2010 08/02/2010 Inactive Premarin 1.25 mg Tab RxNorm: 883875 Tablet(s) PO 2 M-W-F, and 1 El-Bn-Raz-Sun 05/04/2010 05/04/2010 Inactive Premarin 1.25 mg Tab RxNorm: 853188 Tablet(s) PO 2 M-W-F, and 1 Az-Ng-Tfs-Sun 05/04/2010 05/03/2010 Inactive Prednisone 20 mg Tab RxNorm: 159591 1 Tablet(s) PO BID 04/27/2010 Inactive Alprazolam 0.5 mg Tab RxNorm: 310564 2 Tablet(s) PO QD prn 04/26/20 10 05/22/2010 Inactive Clindamycin 300 mg Cap RxNorm: 604108 2 Capsule(s) PO TID 04/05/2010 04/18/2010 Inactive Terbinafine 250 mg Tab RxNorm: 969868 1 Tablet(s) PO QD 04/04/2010 Inactive Hydrocodone-Acetaminophen 7.5 mg-650 mg Tab RxNorm: 320250 1 Ta blet(s) PO Q4H 03/30/2010 04/18/2010 Inactive Avelox 400 mg Tab RxNorm: 247464 1 Tablet(s) PO QD 03/09/2010 010 Inactive Hydrocodone-Acetaminophen 7.5 mg-650 mg Tab RxNorm: 560727 1 Ta blet(s) PO Q4H 03/08/2010 03/27/2010 Inactive Alprazolam 0.5 mg Tab RxNorm: 630530 2 Tablet(s) PO QD prn 03/08/20 10 04/25/2010 Inactive Klor-Con 8 mEq Tab RxNorm: 076142 1 Tablet(s) PO QD when takes lasi x 03/07/2010 08/03/2010 Inactive Premarin 1.25 mg Tab RxNorm: 837948 1 Tablet(s) PO QD 03/03/201003/11 Inactive Alprazolam 0.5 mg Tab RxNorm: 321449 1 Tablet(s) PO BID PRN 010 No Stop Date Active triamterene-hydrochlorothiazide 75 mg-50 mg Tab RxNorm: 3108 18 1 Tablet(s) PO QD 02/09/2010 02/03/2011 Inactive Hydrocodone-Acetaminophen 10 mg-750 mg Tab RxNorm: 954658 1 Tablet(s) PO Q4H PRN 02/09/2010 03/20/2011 Inactive Clonidine 0.2 mg Tab RxNorm: 723673 1 Tablet(s) PO TID 01/13/201009/2009 Inactive Alprazolam 0.5 mg Tab RxNorm: 700278 1 Tablet(s) PO BID PRN 010 01/12/2010 Inactive Hydrocodone-Acetaminophen 10 mg-750 mg Tab RxNorm: 754958 1 Tablet(s) PO Q4H PRN 01/13/2010 01/12/2010 Inactive ANGELIQ 1 mg-0.5 mg Tab RxNorm: 8615472 1 Tablet(s) PO QD 12/27/2009 01/23/2010 Inactive Lasix 40 mg Tab RxNorm: 442821 1 Tablet(s) PO QAM 12/14/2009 06/11/20 10 Inactive Vitamin B12 1000mcg Tablet RxNorm: 1 Tablet(s) PO QD No Start Date Active cyclobenzaprine 10 mg tablet RxNorm: 963875 1 Tablet(s) PO TID as needed DO NOT USE WITH BACLOFEN No Start Date Active Vitamin D 5,000 unit Tab RxNorm: 1 Tablet(s) PO QD No Start Date Active vitamin E (dl, acetate) 400 unit Cap RxNorm: 648934 1 Capsule(s ) PO QD No Start Date Active Benadryl 25 mg Cap RxNorm: 7444296 Capsule(s) PO PRN No Start Date Inactive amitriptyline 100 mg tablet RxNorm: 883108 1 Tablet(s) PO QHS No St art Date 11/27/2016 Inactive Zithromax Z-Dustin 250 mg tablet RxNorm: 541141 Tablet(s) PO as di rected No Start Date 07/22/2013 Inactive Klor-Con 8 mEq tablet,extended release RxNorm: 106349 1 Tablet( s) PO BID No Start Date 07/28/2012 Inactive scopolamine 1.5 mg 72 hr Transderm Patch RxNorm: 336959 Application TD Q72H for motion sickness No Start Date 05/25/2013 Inactive Klonopin 1 mg tablet RxNorm: 813822 1-2 Tablet(s) PO QHS as nee ded for sleep No Start Date 06/20/2015 Inactive Klor-Con M20 mEq tablet,extended release RxNorm: 886334 2 Tablet(s) PO BID to use with lasix No Start Date 11/11/2013 Inactive Bystolic 5 mg tablet RxNorm: 245826 1 Tablet(s) PO QD No Start Date 1 Inactive Bystolic 10 mg tablet RxNorm: 061202 1 Tablet(s) PO BID No Start Da te 07/06/2015 Inactive Premarin 1.25 mg Tab RxNorm: 616890 Tablet(s) PO 2 --, and 1 -Sun No Start Date 05/03/2010 Inactive baclofen 20 mg tablet RxNorm: 581573 1 Tablet(s) PO TID as needed for muscle spasm No Start Date 07/22/2015 Inactive hydrocodone-acetaminophen 7.5 mg-650 mg Tab RxNorm: 559737 1 Tablet(s) PO Q4H as needed for pain No Start Date 03/20/2011 Inactive albuterol sulfate 1.25 mg/3 mL Neb Solution RxNorm: 195797 1 Unit Dose INH Q4H 2boxes No Start Date 09/06/2015 Inactive Butrans 20 mcg/hour Transderm Patch RxNorm: 879653 1 TD WEEKLY apply to skin weekly after removing previous. No Start Date 07/22/2013 Inactive Medrol (Dustin) 4 mg tablets in a dose pack RxNorm: 225883 Tablet(s) PO As Directed No Start Date 07/30/2016 Inactive hydrocodone-acetaminophen 10 mg-325 mg Tab RxNorm: 5155225 1-2 Tablet(s) PO TID as needed for pain No Start Date 03/19/2011 Inactive Klonopin 1 mg tablet RxNorm: 456212 1 Tablet(s) PO QHS No Start Date 02/28/2016 Inactive honey topical RxNorm: topical No Start Date 06/16/2018 Inactive Clonidine 0.2 mg Tab RxNorm: 781519 1 Tablet(s) PO TID No Start Date 01/12/2010 Inactive ketorolac 10 mg tablet RxNorm: 608294 1 Tablet(s) PO Q8H No Start D ate 03/18/2012 Inactive as needed for headache Singulair 10 mg Tab RxNorm: 009128 1 Tablet(s) PO QD No Start Date Inactive Premarin 1.25 mg Tab RxNorm: 710920 1 Tablet(s) PO QD No Start Date 1 Inactive Flonase 50 mcg/Actuation Nasal Mangum RxNorm: 1635659 1 Mangum CECELIA AL BID No Start Date 03/18/2012 Inactive Terbinafine 250 mg Tab RxNorm: 872319 1 Tablet(s) PO QD No Start Da te 04/03/2010 Inactive Fexofenadine 180 mg Tab RxNorm: 0911223 1 Tablet(s) PO QD No Start Date 09/06/2015 Inactive baclofen 20 mg tablet RxNorm: 197547 1 Tablet(s) PO TID as needed N o Start Date 05/25/2014 Inactive Diovan 160 mg Tab RxNorm: 548298 1 Tablet(s) PO QD No Start Date 09/12 Inactive mupirocin 2 % topical ointment RxNorm: 536659 1 Application TOP QID No Start Date 04/25/2016 Inactive ZOFRAN ODT 4 mg Tab, Rapid Dissolve RxNorm: 230740 1 Tablet(s) PO Q4H No Start Date 03/18/2012 Inactive as needed for nausea and vomiting Alprazolam 0.5 mg Tab RxNorm: 640669 1 Tablet(s) PO BID PRN No Star t Date 01/12/2010 Inactive cyclobenzaprine 10 mg tablet RxNorm: 049934 1 Tablet(s) PO TID as needed for muscle spasm No Start Date 10/08/2017 Inactive Albuterol 0.083% Aerosol Solution RxNorm: 1 Appl ication INH Q4H Use one ampule every 4 hrs with nebulizer as needed for shortness of breath. No Start Date 10/09/2010 Inactive lorazepam 1 mg tablet RxNorm: 836834 1 1/2 Tablet(s) PO QHS No Star t Date 02/02/2016 Inactive Melatonin 3 mg Tab RxNorm: 329595 Tablet(s) PO PRN No Start Date 07/11 Inactive Medrol (Dustin) 4 mg Tabs in a Dose Pack RxNorm: 902409 Tablet(s) PO N o Start Date 11/28/2010 Inactive lorazepam 1 mg tablet RxNorm: 329821 1 Tablet(s) PO QHS as need ed for sleep No Start Date 01/30/2016 Inactive hydrocodone-acetaminophen 10 mg-325 mg Tab RxNorm: 0630939 1-2 Tablet(s) PO QID as needed for severe pain No Start Date 03/24/2012 Inactive celecoxib 200 mg capsule RxNorm: 437787 1 Capsule(s) PO BID No Star t Date 06/26/2019 Inactive amlodipine 5 mg-benazepril 20 mg capsule RxNorm: 845733 1 Capsu le(s) PO QD No Start Date 04/10/2017 Inactive Bystolic 20 mg tablet RxNorm: 515058 1/2 Tablet(s) PO QAM No Start Date 01/23/2016 Inactive Bystolic 20 mg tablet RxNorm: 579955 1 Tablet(s) PO QAM No Start Da te 04/25/2016 Inactive Ambien 10 mg Tab RxNorm: 967590 1 Tablet(s) PO QHS No Start Date 05/11 Inactive Klor-Con 8 mEq Tab RxNorm: 296336 1 Tablet(s) PO QD when takes lasix No Start Date 03/06/2010 Inactive aspirin 81 mg tablet RxNorm: 100582 1 Tablet(s) PO QD No Start Date 0 01/29/2018 Inactive hydrocodone-acetaminophen 10 mg-325 mg Tab RxNorm: 1588179 1-2 T ablet(s) PO QID No Start Date 01/10/2012 Inactive Bystolic 10 mg tablet RxNorm: 440217 1 Tablet(s) PO QAM take one daily in the morning. No Start Date 05/28/2013 Inactive nystatin 100,000 unit/mL Oral Susp RxNorm: 854236 5 Milliliter( s) PO QID No Start Date 03/18/2012 Inactive swish and spit scopolamine 1.5 mg 72 hr Transderm Patch RxNorm: 682705 1 Unit Dose TD Q72H for motion sickness No Start Date 12/23/2013 Inactive Hydrocodone-Acetaminophen 10 mg-750 mg Tab RxNorm: 244775 1 Tablet(s) PO Q4H PRN No Start Date 01/12/2010 Inactive Soma 350 mg tablet RxNorm: 317512 1 Tablet(s) PO TID as needed for spasm No Start Date 01/12/2013 Inactive baclofen 10 mg tablet RxNorm: 753729 1 Tablet(s) PO TID as needed for muscle spasm No Start Date 09/18/2019 Inactive Soma 350 mg Tab RxNorm: 292013 1 Tablet(s) PO TID for spasm No Star t Date 01/31/2012 Inactive Co Q-10 400 mg capsule RxNorm: 322628 1 Capsule(s) PO QD No Start D ate 01/21/2019 Inactive nystatin 100,000 unit/gram topical cream RxNorm: 779212 Applica tion TOP BID No Start Date 03/22/2015 Inactive Exforge 5 mg-160 mg Tab RxNorm: 416007 1 Tablet(s) PO QD No Start D ate 10/09/2010 Inactive Hydrocodone-Acetaminophen 7.5 mg-650 mg Tab RxNorm: 398248 1 Ta blet(s) PO Q4H No Start Date 03/07/2010 Inactive Robaxin-750 750 mg Tab RxNorm: 969592 1-2 Tablet(s) PO TID prn spasm No Start Date 05/21/2011 Inactive amlodipine 5 mg tablet RxNorm: 194980 1 Tablet(s) PO QHS No Start D ate 09/29/2015 Inactive oxycodone-acetaminophen 10 mg-325 mg tablet RxNorm: 6211073 1-2 Tablet(s) PO Q6H No Start Date 06/16/2018 Inactive Triamterene-Hydrochlorothiazide 75 mg-50 mg Tab RxNorm: 3108 18 1 Tablet(s) PO QD No Start Date 02/08/2010 Inactive Alprazolam 0.5 mg Tab RxNorm: 584044 2 Tablet(s) PO QD prn No Start Date 03/07/2010 Inactive Bystolic 20 mg tablet RxNorm: 601425 1 Tablet(s) PO QAM No Start Da te 08/17/2015 Inactive ketorolac 10 mg tablet RxNorm: 630200 1 Tablet(s) PO QID prn he adache No Start Date 07/17/2012 Inactive acyclovir 800 mg Tab RxNorm: 340375 1 Tablet(s) PO BID No Start Date 03/18/2012 Inactive duloxetine 60 mg capsule,delayed release RxNorm: 917801 1 Capsu le(s) PO QD No Start Date 09/29/2015 Inactive Norvasc 5 mg tablet RxNorm: 657083 1 Tablet(s) PO QHS No Start Date 1 10/18/2014 Inactive promethazine 25 mg tablet RxNorm: 021206 1 Tablet(s) PO Q8H use sparingly No Start Date 07/22/2013 Inactive alprazolam 0.5 mg tablet RxNorm: 559423 3 Tablet(s) PO QHS No Start Date 06/06/2015 Inactive Lunesta 3 mg tablet RxNorm: 445369 1 Tablet(s) PO QHS No Start Date 0 09/20/2017 Inactive hydrocodone-acetaminophen 10 mg-325 mg Tab RxNorm: 8833723 1-2 Tablet(s) PO TID as needed for pain No Start Date 12/10/2011 Inactive Coricidin HBP Cough & Cold 4 mg-30 mg Tab RxNorm: 7480562 Tablet (s) PO PRN No Start Date 10/09/2010 Inactive Bactroban 2 % Ointment RxNorm: 085441 Application TOP QID to so res No Start Date 02/22/2012 Inactive Flonase 50 mcg/actuation Nasal [place] RxNorm: 305452 2 [place] QHS No Start Date 03/03/2014 Inactive Medication Administered No Medication Administered data Immunizations Vaccine Codes Date Status Tetanus, Diptheria, Pertussis CVX: 115 02/27/2014 Results Observation Observation Code Item Item Code Result Date [facility] Location COMPLETE BLOOD COUNT [id number] WBC 10.7 10e9/L 018 Unknown COMPLETE BLOOD COUNT [id number] RBC 4.59 10e12/L 2017 Unknown COMPLETE BLOOD COUNT [id number] HEMOGLOBIN 14.8 g/dL 12/11/19 18 Unknown COMPLETE BLOOD COUNT 1872473 HEMATOCRIT 44.9 % 12/11/19 18 Unknown COMPLETE BLOOD COUNT [id number] MCV 97.8 fL 8 Unknown COMPLETE BLOOD COUNT 1604538 MCH 32.2 pg 8 Unknown COMPLETE BLOOD COUNT 6479554 MCHC 33.0 g/dL 8 Unknown COMPLETE BLOOD COUNT [id number] PLATELET COUNT 261 10e9/L 10/2017 Unknown COMPLETE BLOOD COUNT 7680986 Mean Plt Volume 9.5 fL 10/2017 Unknown COMPLETE BLOOD COUNT 3776255 Neut Auto 59.9 % 8 Unknown COMPLETE BLOOD COUNT 6338391 Lymph Auto 27.4 % 12/11/19 18 Unknown COMPLETE BLOOD COUNT 7937628 Marshall Auto 8.2 % 8 Unknown COMPLETE BLOOD COUNT 3420087 RDW 13.3 % 8 Unknown COMPLETE BLOOD COUNT 8124201 Eos Auto 4.1 % 8 Unknown COMPLETE BLOOD COUNT 5326229 Baso Auto 0.4 % 8 Unknown COMPLETE BLOOD COUNT [id number] Neutrophil Abs 6.41 10e9/L Unknown COMPLETE BLOOD COUNT [id number] Lymphocyte Abs 2.93 10e9/L Unknown COMPLETE BLOOD COUNT [id number] Monocyte Abs 0.88 10e9/L 10/2017 Unknown COMPLETE BLOOD COUNT [id number] Eosinophil Abs 0.44 10e9/L Unknown COMPLETE BLOOD COUNT 1080241 RDW-SD 46.2 fL 8 Unknown COMPLETE BLOOD COUNT [id number] Basophil Abs 0.04 10e9/L 10/2017 Unknown THYROID STIMULATING HORMONE 30946 TSH 4.015 uIU/mL 12/10/2017 Unknown COMPREHENSIVE METABOLIC 59661 AST 25 U/L 2017 Unknown COMPREHENSIVE METABOLIC 11354 ALT 17 U/L 2017 Unknown COMPREHENSIVE METABOLIC 39567 BUN 19 mg/dL 2017 Unknown COMPREHENSIVE METABOLIC 63836 ALBUMIN 4.0 g/dL 2017 Unknown COMPREHENSIVE METABOLIC 62687 CHLORIDE 91 mmol/L 2017 Unknown COMPREHENSIVE METABOLIC 12860 Bili Total 0.5 mg/dL 12/10 Unknown COMPREHENSIVE METABOLIC 05002 ALK PHOS 75 U/L 2017 Unknown COMPREHENSIVE METABOLIC 88430 SODIUM 136 mmol/L 12/10 Unknown COMPREHENSIVE METABOLIC 82697 CREATININE 1.05 mg/dL 10/2017 Unknown COMPREHENSIVE METABOLIC 95265 CALCIUM 8.9 mg/dL 2017 Unknown COMPREHENSIVE METABOLIC 90464 POTASSIUM 3.4 mmol/L 12/10 Unknown COMPREHENSIVE METABOLIC 24186 Total Protein 6.5 g/dL Unknown COMPREHENSIVE METABOLIC 52270 Glucose 138 mg/dL 2017 Unknown COMPREHENSIVE METABOLIC 18495 Bicarbonate 35 mmol/L 10/2017 Unknown COMPREHENSIVE METABOLIC 05222 AGAP 10 mmol/L 2017 Unknown MEAN GLUC 5032775 Calc Mean Gluc 171 mg/dL 12/10/2017 Unkn own LIPID GROUP 83697 Cholesterol 204 mg/dL 12/10/2017 Unkno wn LIPID GROUP 15027 Triglyceride 411 mg/dL 12/10/2017 Unkn own LIPID GROUP 00258 HDL CHOLESTEROL 50 mg/dL 12/10/2017 U nknown LIPID GROUP 73751 Chol/HDL Ratio 4.08 ratio 12/10/2017 U nknown LIPID GROUP 19848 NON-HDL Chol 154 mg/dL 12/10/2017 Unkn own LIPID GROUP 75153 LDL Cholesterol N/A Trig >400 018 Unknown GLYCOSYLATED HEMOGLOBIN TEST 45103 Hgb A1c 43302-7 7.6 % 0 12/10/2017 Unknown FREE T4 40764 T4 Free 1.40 ng/dL 12/10/2017 Unknown GFR CALC 3784185 GFR Non Afr Amr 55 mL/min 12/10/2017 Unk nown GFR CALC 5022308 GFR Afr Amr >60 mL/min 12/10/2017 Unknow n GFR CALC 3074391 GFR Non Afr Amr 48 mL/min 06/28/2017 Unk nown GFR CALC 2607082 GFR Afr Amr 59 mL/min 06/28/2017 Unknown COMPREHENSIVE METABOLIC 27594 AST 32 U/L 2016 Unknown COMPREHENSIVE METABOLIC 52896 ALT 22 U/L 2016 Unknown COMPREHENSIVE METABOLIC 29729 BUN 23 mg/dL 2016 Unknown COMPREHENSIVE METABOLIC 97090 ALBUMIN 4.7 g/dL 2016 Unknown COMPREHENSIVE METABOLIC 95573 CHLORIDE 89 mmol/L 2016 Unknown COMPREHENSIVE METABOLIC 15527 Bili Total 0.5 mg/dL 06/28 Unknown COMPREHENSIVE METABOLIC 10236 ALK PHOS 90 U/L 2016 Unknown COMPREHENSIVE METABOLIC 10650 SODIUM 135 mmol/L 06/28 Unknown COMPREHENSIVE METABOLIC 68902 CREATININE 1.18 mg/dL 06/10 Unknown COMPREHENSIVE METABOLIC 98728 CALCIUM 9.7 mg/dL 2016 Unknown COMPREHENSIVE METABOLIC 95499 POTASSIUM 3.5 mmol/L 06/28 Unknown COMPREHENSIVE METABOLIC 04353 Total Protein 7.7 g/dL Unknown COMPREHENSIVE METABOLIC 06300 Glucose 129 mg/dL 2016 Unknown COMPREHENSIVE METABOLIC 94685 Bicarbonate 34 mmol/L 06/10 Unknown COMPREHENSIVE METABOLIC 43606 AGAP 12 mmol/L 2016 Unknown LIPID GROUP 56161 HDL TEST 64 MG/DL 08/27/2014 Unknown LIPID GROUP 01097 TRIG 222 MG/DL 08/27/2014 Unknown LIPID GROUP 48751 TEST LDL 209 MG/DL 08/27/2014 Unknown LIPID GROUP 42757 CHOL 317 MG/DL 08/27/2014 Unknown LIPID GROUP 50593 RCHOL/HDL 4.95 RATIO 08/27/2014 Unknow n LIPID GROUP 50515 NON-HDL CH 253 MG/DL 08/27/2014 Unknow n GFR CALC 3475450 GFR AA >60 ML/MIN 08/27/2014 Unknown GFR CALC 4580423 GFR NON-AA >60 ML/MIN 08/27/2014 Unknown COMPLETE BLOOD COUNT 0284602 WBC 7.0 10e9/L 08/27/20 14 Unknown COMPLETE BLOOD COUNT 8635233 RBC 4.98 10e12/L 2013 Unknown COMPLETE BLOOD COUNT 1687113 HGB 15.6 g/dL 4 Unknown COMPLETE BLOOD COUNT 7598159 HCT DET 46.5 % 4 Unknown COMPLETE BLOOD COUNT 0888126 MCV 93.4 fL 4 Unknown COMPLETE BLOOD COUNT 2378059 MCH 31.3 pg 4 Unknown COMPLETE BLOOD COUNT 0361217 MCHC 33.5 g/dL 4 Unknown COMPLETE BLOOD COUNT 6714151 PLT 309 10e9/L 08/27/20 14 Unknown COMPLETE BLOOD COUNT 0294554 MPV 9.6 fL 4 Unknown COMPLETE BLOOD COUNT 9744945 CADEN % 57.2 % 4 Unknown COMPLETE BLOOD COUNT 5620486 LY % 33.2 % 4 Unknown COMPLETE BLOOD COUNT 1648061 MON % 7.3 % 4 Unknown COMPLETE BLOOD COUNT 9258900 EOS % 2.0 % 4 Unknown COMPLETE BLOOD COUNT 7852716 BASO % 0.3 % 4 Unknown COMPLETE BLOOD COUNT 9503179 RDW 13.7 % 4 Unknown COMPLETE BLOOD COUNT [id number] ABS CADEN 4.00 10e9/L 014 Unknown COMPLETE BLOOD COUNT [id number] ABS LYMPH 2.32 10e9/L 014 Unknown COMPLETE BLOOD COUNT 9527942 ABS MONO 0.51 10e9/L 014 Unknown COMPLETE BLOOD COUNT 0543151 ABS EOS 0.14 10e9/L 014 Unknown COMPLETE BLOOD COUNT 4761568 ABS BASO 0.02 10e9/L 014 Unknown COMPLETE BLOOD COUNT 2864544 RDW-SD 45.1 fL 4 Unknown COMPREHENSIVE METABOLIC 79803 AST 13 U/L 2013 Unknown COMPREHENSIVE METABOLIC 13999 ALT 11 IU/L 2013 Unknown COMPREHENSIVE METABOLIC 30667 BUN 23 MG/DL 2013 Unknown COMPREHENSIVE METABOLIC 65086 ALBUMIN 4.4 GM/DL 2013 Unknown COMPREHENSIVE METABOLIC 75283 CHLORIDE 99 MMOL/L 2013 Unknown COMPREHENSIVE METABOLIC 14995 BILI TOT 0.5 MG/DL 2013 Unknown COMPREHENSIVE METABOLIC 22234 ALK PHOS 56 U/L 2013 Unknown COMPREHENSIVE METABOLIC 46312 SODIUM 138 MMOL/L 08/27 Unknown COMPREHENSIVE METABOLIC 34230 CREATININE 0.95 MG/DL 08/10 Unknown COMPREHENSIVE METABOLIC 85199 CALCIUM 9.8 MG/DL 2013 Unknown COMPREHENSIVE METABOLIC 12454 POTASSIUM 3.5 MMOL/L 08/27 Unknown COMPREHENSIVE METABOLIC 04291 PROT TOT 6.8 GM/DL 2013 Unknown COMPREHENSIVE METABOLIC 35992 Glucose 90 MG/DL 2013 Unknown COMPREHENSIVE METABOLIC 63205 BICARB 34 MMOL/L 2013 Unknown COMPREHENSIVE METABOLIC 01018 ANION GAP 5 MEQ/L 2013 Unknown LIPASE 46209 LIPASE 11 IU/L 07/21/2014 Unknown AMYLASE 92472 AMYLASE 39 IU/L 07/21/2014 Unknown HEMOGLOBIN A1C (GLYCOSYLATED) 7625702 A1C HPLC 00032-4 6.2 % 03/05/2013 Unknown THYROID STIMULATING HORMONE 80604 TSH 6.986 uIU/ML 03/05/2013 Unknown COMPLETE BLOOD COUNT 5201493 WBC 12.7 10e9/L 013 Unknown COMPLETE BLOOD COUNT 2435161 RBC 4.53 10e12/L 2012 Unknown COMPLETE BLOOD COUNT 4626875 HGB 14.7 g/dL 3 Unknown COMPLETE BLOOD COUNT 4382662 HCT DET 43.1 % 3 Unknown COMPLETE BLOOD COUNT 4758485 MCV 95.1 fL 3 Unknown COMPLETE BLOOD COUNT 8759206 MCH 32.5 pg 3 Unknown COMPLETE BLOOD COUNT 7139499 MCHC 34.1 g/dL 3 Unknown COMPLETE BLOOD COUNT 3353423 PLT 346 10e9/L 03/05/20 13 Unknown COMPLETE BLOOD COUNT 0231108 MPV 9.5 fL 3 Unknown COMPLETE BLOOD COUNT 3912608 CADEN % 67.6 % 3 Unknown COMPLETE BLOOD COUNT 4822405 LY % 22.1 % 3 Unknown COMPLETE BLOOD COUNT 7999588 MON % 6.6 % 3 Unknown COMPLETE BLOOD COUNT 3900567 EOS % 3.3 % 3 Unknown COMPLETE BLOOD COUNT 7849496 BASO % 0.4 % 3 Unknown COMPLETE BLOOD COUNT 7594135 RDW 14.0 % 3 Unknown COMPLETE BLOOD COUNT 3929859 ABS CADEN 8.59 10e9/L 013 Unknown COMPLETE BLOOD COUNT 6404752 ABS LYMPH 2.81 10e9/L 013 Unknown COMPLETE BLOOD COUNT 8221341 ABS MONO 0.84 10e9/L 013 Unknown COMPLETE BLOOD COUNT 8397731 ABS EOS 0.42 10e9/L 013 Unknown COMPLETE BLOOD COUNT 7853411 ABS BASO 0.05 10e9/L 013 Unknown COMPLETE BLOOD COUNT 3640150 RDW-SD 46.0 fL 3 Unknown FREE T4 94647 FREE T4 1.14 NG/DL 03/05/2013 Unknown COMPREHENSIVE METABOLIC 18620 AST 17 U/L 2012 Unknown COMPREHENSIVE METABOLIC 34753 ALT 12 IU/L 2012 Unknown COMPREHENSIVE METABOLIC 08340 BUN 24 MG/DL 2012 Unknown COMPREHENSIVE METABOLIC 59975 ALBUMIN 4.2 GM/DL 2012 Unknown COMPREHENSIVE METABOLIC 33068 CHLORIDE 93 MMOL/L 2012 Unknown COMPREHENSIVE METABOLIC 45743 BILI TOT 0.5 MG/DL 2012 Unknown COMPREHENSIVE METABOLIC 90092 ALK PHOS 75 U/L 2012 Unknown COMPREHENSIVE METABOLIC 50647 SODIUM 141 MMOL/L 03/05 Unknown COMPREHENSIVE METABOLIC 10860 CREATININE 1.36 MG/DL 02/09 Unknown COMPREHENSIVE METABOLIC 93149 CALCIUM 9.2 MG/DL 2012 Unknown COMPREHENSIVE METABOLIC 43676 POTASSIUM 3.1 MMOL/L 03/05 Unknown COMPREHENSIVE METABOLIC 52538 PROT TOT 6.9 GM/DL 2012 Unknown COMPREHENSIVE METABOLIC 34767 Glucose 123 MG/DL 2012 Unknown COMPREHENSIVE METABOLIC 88248 BICARB 36 MMOL/L 2012 Unknown COMPREHENSIVE METABOLIC 56101 ANION GAP 12 MEQ/L 2012 Unknown GFR CALC 7636487 GFR AA 51.0L ML/MIN 03/05/2013 Unknow n GFR CALC 2984244 GFR NON-AA 42.0L ML/MIN 03/05/2013 Unkno wn COMPREHENSIVE METABOLIC 88016 AST 14 U/L 2012 Unknown COMPREHENSIVE METABOLIC 72215 ALT 11 IU/L 2012 Unknown COMPREHENSIVE METABOLIC 84002 BUN 16 MG/DL 2012 Unknown COMPREHENSIVE METABOLIC 29430 ALBUMIN 4.2 GM/DL 2012 Unknown COMPREHENSIVE METABOLIC 05770 CHLORIDE 98 MMOL/L 2012 Unknown COMPREHENSIVE METABOLIC 57262 BILI TOT 0.4 MG/DL 2012 Unknown COMPREHENSIVE METABOLIC 49136 ALK PHOS 77 U/L 2012 Unknown COMPREHENSIVE METABOLIC 68485 SODIUM 139 MMOL/L 09/25 Unknown COMPREHENSIVE METABOLIC 49534 CREATININE 0.86 MG/DL 09/10 Unknown COMPREHENSIVE METABOLIC 33716 CALCIUM 9.5 MG/DL 2012 Unknown COMPREHENSIVE METABOLIC 61360 POTASSIUM 3.8 MMOL/L 09/25 Unknown COMPREHENSIVE METABOLIC 37800 PROT TOT 6.8 GM/DL 2012 Unknown COMPREHENSIVE METABOLIC 94900 Glucose 91 MG/DL 2012 Unknown COMPREHENSIVE METABOLIC 06850 BICARB 32 MMOL/L 2012 Unknown COMPREHENSIVE METABOLIC 31335 ANION GAP 9 MEQ/L 2012 Unknown FREE T4 79408 FREE T4 0.98 NG/DL 09/25/2012 Unknown THYROID STIMULATING HORMONE 15569 TSH 1.736 uIU/ML 09/25/2012 Unknown C-REACTIVE PROTEIN (CRP) QUANT 47725 CRP 2.3 MG/DL 09/25/2012 Unknown COMPLETE BLOOD COUNT 4736180 WBC 11.9 10e9/L 013 Unknown COMPLETE BLOOD COUNT 2521703 RBC 4.87 10e12/L 2012 Unknown COMPLETE BLOOD COUNT 7704356 HGB 15.1 g/dL 3 Unknown COMPLETE BLOOD COUNT 4383274 HCT DET 44.8 % 3 Unknown COMPLETE BLOOD COUNT 1791356 MCV 92.0 fL 3 Unknown COMPLETE BLOOD COUNT 6967699 MCH 31.0 pg 3 Unknown COMPLETE BLOOD COUNT 7396168 MCHC 33.7 g/dL 3 Unknown COMPLETE BLOOD COUNT 7412477 PLT 343 10e9/L 09/25/19 13 Unknown COMPLETE BLOOD COUNT 4852829 MPV 9.0 fL 3 Unknown COMPLETE BLOOD COUNT 1943987 CADEN % 68.2 % 3 Unknown COMPLETE BLOOD COUNT 9888291 LY % 22.4 % 3 Unknown COMPLETE BLOOD COUNT 4674750 MON % 6.4 % 3 Unknown COMPLETE BLOOD COUNT 6512998 EOS % 2.7 % 3 Unknown COMPLETE BLOOD COUNT 9245978 BASO % 0.3 % 3 Unknown COMPLETE BLOOD COUNT 7508711 RDW 13.8 % 3 Unknown COMPLETE BLOOD COUNT [id number] ABS CADEN 8.12 10e9/L 013 Unknown COMPLETE BLOOD COUNT 2902606 ABS LYMPH 2.67 10e9/L 013 Unknown COMPLETE BLOOD COUNT 0742125 ABS MONO 0.76 10e9/L 013 Unknown COMPLETE BLOOD COUNT [id number] ABS EOS 0.32 10e9/L 013 Unknown COMPLETE BLOOD COUNT 8296279 ABS BASO 0.04 10e9/L 013 Unknown COMPLETE BLOOD COUNT 8567205 RDW-SD 45.6 fL 3 Unknown GFR CALC 6860809 GFR AA >60 ML/MIN 09/25/2012 Unknown GFR CALC 6734308 GFR NON-AA >60 ML/MIN 09/25/2012 Unknown ERYTHROCYTE SEDIMENTATION RATE 89299 ESR 19 MM/HR 05/06/2012 Unknown VITAMIN B 12 FOLIC ACID 36758|68305 VIT B 12 922 PG/ML 04/11 Unknown VITAMIN B 12 FOLIC ACID 09038|70612 FOLIC ACID 13.6 NG/ML Unknown URIC ACID 69925 URIC ACID 7.8 MG/DL 05/06/2012 Unknown COMPLETE BLOOD COUNT 88565 WBC 11.9 10e9/L 012 Unknown COMPLETE BLOOD COUNT 14837 RBC 5.30 10e12/L 2011 Unknown COMPLETE BLOOD COUNT 63205 HGB 16.6 g/dL 2 Unknown COMPLETE BLOOD COUNT 27124 HCT DET 47.2 % 2 Unknown COMPLETE BLOOD COUNT 11128 MCV 89.1 fL 2 Unknown COMPLETE BLOOD COUNT 17081 MCH 31.3 pg 2 Unknown COMPLETE BLOOD COUNT 15316 MCHC 35.2 g/dL 2 Unknown COMPLETE BLOOD COUNT 94680 PLT 362 10e9/L 05/06/20 12 Unknown COMPLETE BLOOD COUNT 87038 MPV 9.4 fL 2 Unknown COMPLETE BLOOD COUNT 17043 CADEN % 68.2 % 2 Unknown COMPLETE BLOOD COUNT 23484 LY % 22.0 % 2 Unknown COMPLETE BLOOD COUNT 33813 MON % 6.9 % 2 Unknown COMPLETE BLOOD COUNT 99435 EOS % 2.6 % 2 Unknown COMPLETE BLOOD COUNT 83856 BASO % 0.3 % 2 Unknown COMPLETE BLOOD COUNT 12700 RDW 12.8 % 2 Unknown COMPLETE BLOOD COUNT 40389 ABS CADEN 8.12 10e9/L 012 Unknown COMPLETE BLOOD COUNT 76578 ABS LYMPH 2.62 10e9/L 012 Unknown COMPLETE BLOOD COUNT 86014 ABS MONO 0.82 10e9/L 012 Unknown COMPLETE BLOOD COUNT 58449 ABS EOS 0.31 10e9/L 012 Unknown COMPLETE BLOOD COUNT 07593 ABS BASO 0.04 10e9/L 012 Unknown COMPLETE BLOOD COUNT 43563 RDW-SD 41.5 fL 2 Unknown GFR CALC 1050691 GFR AA >60 ML/MIN 05/06/2012 Unknown GFR CALC 4743692 GFR NON-AA 58.0L ML/MIN 05/06/2012 Unkno wn FREE T4 25375 FREE T4 1.15 NG/DL 05/06/2012 Unknown THYROID STIMULATING HORMONE 58400 TSH 1.568 uIU/ML 05/06/2012 Unknown COMPREHENSIVE METABOLIC 44370 AST 20 U/L 2011 Unknown COMPREHENSIVE METABOLIC 65334 ALT 12 IU/L 2011 Unknown COMPREHENSIVE METABOLIC 08264 BUN 20 MG/DL 2011 Unknown COMPREHENSIVE METABOLIC 30891 ALBUMIN 4.5 GM/DL 2011 Unknown COMPREHENSIVE METABOLIC 52812 CHLORIDE 91 MMOL/L 2011 Unknown COMPREHENSIVE METABOLIC 60650 BILI TOT 0.4 MG/DL 2011 Unknown COMPREHENSIVE METABOLIC 33479 ALK PHOS 73 U/L 2011 Unknown COMPREHENSIVE METABOLIC 78030 SODIUM 139 MMOL/L 05/06 Unknown COMPREHENSIVE METABOLIC 57656 CREATININE 1.02 MG/DL 04/11 Unknown COMPREHENSIVE METABOLIC 88613 CALCIUM 9.7 MG/DL 2011 Unknown COMPREHENSIVE METABOLIC 87535 POTASSIUM 3.1 MMOL/L 05/06 Unknown COMPREHENSIVE METABOLIC 39830 PROT TOT 7.3 GM/DL 2011 Unknown COMPREHENSIVE METABOLIC 96931 Glucose 118 MG/DL 2011 Unknown COMPREHENSIVE METABOLIC 87368 BICARB 33 MMOL/L 2011 Unknown COMPREHENSIVE METABOLIC 74313 ANION GAP 15 MEQ/L 2011 Unknown Procedures Procedure Codes Date URINALYSIS NONAUTO W/O SCOPE CPT-4: 66752 09/30/2018 MICROALBUMIN QUANTITATIVE CPT-4: 44574 09/30/2018 CEFTRIAXONE SODIUM INJECTION CPT-4: J0696 06/19/2018 THER/PROPH/DIAG INJ SC/IM CPT-4: 36853 06/19/2018 CEFTRIAXONE SODIUM INJECTION CPT-4: J0696 06/17/2018 THER/PROPH/DIAG INJ SC/IM CPT-4: 86119 06/17/2018 THER/PROPH/DIAG INJ SC/IM CPT-4: 91353 05/16/2018 KETOROLAC TROMETHAMINE INJ CPT-4: J1885 05/16/2018 ONDANSETRON HCL INJECTION CPT-4: J2405 05/16/2018 THER/PROPH/DIAG INJ SC/IM CPT-4: 76536 05/16/2018 ROUTINE VENIPUNCTURE CPT-4: 47758 03/20/2018 COMPREHEN METABOLIC PANEL CPT-4: 47424 03/20/2018 DEXAMETHASONE SODIUM PHOS CPT-4: J1100 02/11/2018 THER/PROPH/DIAG INJ SC/IM CPT-4: 85291 02/11/2018 TRIAMCINOLONE ACET INJ NOS CPT-4: J3301 02/11/2018 CEFTRIAXONE SODIUM INJECTION CPT-4: J0696 02/01/2018 THER/PROPH/DIAG INJ SC/IM CPT-4: 96649 02/01/2018 CEFTRIAXONE SODIUM INJECTION CPT-4: J0696 01/30/2018 THER/PROPH/DIAG INJ SC/IM CPT-4: 01976 01/30/2018 ROUTINE VENIPUNCTURE CPT-4: 22126 12/10/2017 ASSAY OF FREE THYROXINE CPT-4: 07150 12/10/2017 ASSAY THYROID STIM HORMONE CPT-4: 90048 12/10/2017 COMPREHEN METABOLIC PANEL CPT-4: 39470 12/10/2017 COMPLETE CBC W/AUTO DIFF WBC CPT-4: 58902 12/10/2017 LIPID PANEL CPT-4: 11297 12/10/2017 A1C HPLC CPT-4: 24417 12/10/2017 CEFTRIAXONE SODIUM INJECTION CPT-4: J0696 12/10/2017 THER/PROPH/DIAG INJ SC/IM CPT-4: 19148 12/10/2017 CEFTRIAXONE SODIUM INJECTION CPT-4: J0696 12/07/2017 THER/PROPH/DIAG INJ SC/IM CPT-4: 41692 12/07/2017 DEXAMETHASONE SODIUM PHOS CPT-4: J1100 12/07/2017 THER/PROPH/DIAG INJ SC/IM CPT-4: 98405 12/07/2017 CEFTRIAXONE SODIUM INJECTION CPT-4: J0696 10/08/2017 THER/PROPH/DIAG INJ SC/IM CPT-4: 36292 10/08/2017 CEFTRIAXONE SODIUM INJECTION CPT-4: J0696 09/21/2017 THER/PROPH/DIAG INJ SC/IM CPT-4: 67284 09/21/2017 CEFTRIAXONE SODIUM INJECTION CPT-4: J0696 09/20/2017 THER/PROPH/DIAG INJ SC/IM CPT-4: 77078 09/20/2017 REMOVAL OF NAIL PLATE CPT-4: 06839 08/29/2017 THER/PROPH/DIAG INJ SC/IM CPT-4: 79866 08/29/2017 TRIAMCINOLONE ACET INJ NOS CPT-4: J3301 08/29/2017 CEFTRIAXONE SODIUM INJECTION CPT-4: J0696 08/29/2017 THER/PROPH/DIAG INJ SC/IM CPT-4: 07231 08/29/2017 DESTRUCT PREMALG LESION (Cryosurgery) CPT-4: 17429 ROUTINE VENIPUNCTURE CPT-4: 99077 06/27/2017 ASSAY OF FREE THYROXINE CPT-4: 31484 06/27/2017 ASSAY THYROID STIM HORMONE CPT-4: 59932 06/27/2017 COMPREHEN METABOLIC PANEL CPT-4: 95620 06/27/2017 COMPLETE CBC W/AUTO DIFF WBC CPT-4: 80340 06/27/2017 EXC TR-EXT B9+REECE 0.5 CM< CPT-4: 83178 01/24/2017 THER/PROPH/DIAG INJ SC/IM CPT-4: 48782 08/02/2016 DEXAMETHASONE SODIUM PHOS CPT-4: J1100 08/02/2016 DESTRUCT PREMALG LESION (Cryosurgery) CPT-4: 90163 EXC TR-EXT B9+REECE 0.5 CM< CPT-4: 36552 08/01/2016 AEROBIC WOUND CULTURE & STN CPT-4: 08208 07/06/2016 CEFTRIAXONE SODIUM INJECTION CPT-4: J0696 05/25/2016 THER/PROPH/DIAG INJ SC/IM CPT-4: 41512 05/25/2016 THER/PROPH/DIAG INJ SC/IM CPT-4: 73217 04/26/2016 DEXAMETHASONE SODIUM PHOS CPT-4: J1100 04/26/2016 CEFTRIAXONE SODIUM INJECTION CPT-4: J0696 04/26/2016 THER/PROPH/DIAG INJ SC/IM CPT-4: 86664 04/26/2016 THER/PROPH/DIAG INJ SC/IM CPT-4: 14170 02/09/2016 TRIAMCINOLONE ACET INJ NOS CPT-4: J3301 02/09/2016 URINALYSIS NONAUTO W/O SCOPE CPT-4: 26588 01/24/2016 URINE CULTURE/ COLONY COUNT CPT-4: 51113 01/24/2016 THER/PROPH/DIAG INJ SC/IM CPT-4: 84462 12/08/2015 TRIAMCINOLONE ACET INJ NOS CPT-4: J3301 12/08/2015 THER/PROPH/DIAG INJ SC/IM CPT-4: 17111 10/07/2015 TRIAMCINOLONE ACET INJ NOS CPT-4: J3301 10/07/2015 DESTRUCT PREMALG LESION (Cryosurgery) CPT-4: 86553 THER/PROPH/DIAG INJ SC/IM CPT-4: 80946 03/16/2015 METHYLPREDNISOLONE 40 MG INJ CPT-4: J1030 03/16/2015 DESTRUCT PREMALG LESION (Cryosurgery) CPT-4: 84265 THER/PROPH/DIAG INJ SC/IM CPT-4: 73395 09/11/2014 METHYLPREDNISOLONE 40 MG INJ CPT-4: J1030 09/11/2014 TRIAMCINOLONE ACET INJ NOS CPT-4: J3301 09/11/2014 CEFTRIAXONE SODIUM INJECTION CPT-4: J0696 09/11/2014 THER/PROPH/DIAG INJ SC/IM CPT-4: 26052 09/11/2014 ROUTINE VENIPUNCTURE CPT-4: 33265 08/27/2014 COMPREHEN METABOLIC PANEL CPT-4: 59671 08/27/2014 COMPLETE CBC W/AUTO DIFF WBC CPT-4: 46454 08/27/2014 LIPID PANEL CPT-4: 52847 08/27/2014 ROUTINE VENIPUNCTURE CPT-4: 96599 07/21/2014 ASSAY OF AMYLASE CPT-4: 80115 07/21/2014 ASSAY OF LIPASE CPT-4: 38901 07/21/2014 THER/PROPH/DIAG INJ SC/IM CPT-4: 34762 07/15/2014 TRIAMCINOLONE ACET INJ NOS CPT-4: J3301 07/15/2014 ROUTINE VENIPUNCTURE CPT-4: 61098 05/14/2014 ASSAY OF FREE THYROXINE CPT-4: 71580 05/14/2014 ASSAY THYROID STIM HORMONE CPT-4: 29152 05/14/2014 COMPREHEN METABOLIC PANEL CPT-4: 25469 05/14/2014 COMPLETE CBC W/AUTO DIFF WBC CPT-4: 53624 05/14/2014 LIPID PANEL CPT-4: 10130 05/14/2014 CEFTRIAXONE SODIUM INJECTION CPT-4: J0696 04/21/2014 THER/PROPH/DIAG INJ SC/IM CPT-4: 90212 04/21/2014 THER/PROPH/DIAG INJ SC/IM CPT-4: 92486 04/21/2014 TRIAMCINOLONE ACET INJ NOS CPT-4: J3301 04/21/2014 THER/PROPH/DIAG INJ SC/IM CPT-4: 39082 03/04/2014 METHYLPREDNISOLONE 40 MG INJ CPT-4: J1030 03/04/2014 TRIAMCINOLONE ACET INJ NOS CPT-4: J3301 03/04/2014 CEFTRIAXONE SODIUM INJECTION CPT-4: J0696 03/04/2014 THER/PROPH/DIAG INJ SC/IM CPT-4: 79412 03/04/2014 TDAP VACCINE 7 YRS/> IM CPT-4: 16478 02/27/2014 IMMUNIZATION ADMIN CPT-4: 23742 02/27/2014 DESTRUCT PREMALG LESION (Cryosurgery) CPT-4: 47062 DESTRUCT PREMALG LES 2-14 CPT-4: 84417 01/13/2014 THER/PROPH/DIAG INJ SC/IM CPT-4: 73871 10/21/2013 METHYLPREDNISOLONE 40 MG INJ CPT-4: J1030 10/21/2013 TRIAMCINOLONE ACET INJ NOS CPT-4: J3301 10/21/2013 CEFTRIAXONE SODIUM INJECTION CPT-4: J0696 08/27/2013 THER/PROPH/DIAG INJ SC/IM CPT-4: 10899 08/27/2013 THER/PROPH/DIAG INJ SC/IM CPT-4: 13021 08/27/2013 METHYLPREDNISOLONE 40 MG INJ CPT-4: J1030 08/27/2013 TRIAMCINOLONE ACET INJ NOS CPT-4: J3301 08/27/2013 THER/PROPH/DIAG INJ SC/IM CPT-4: 80754 06/23/2013 METHYLPREDNISOLONE 40 MG INJ CPT-4: J1030 06/23/2013 TRIAMCINOLONE ACET INJ NOS CPT-4: J3301 06/23/2013 THER/PROPH/DIAG INJ SC/IM CPT-4: 40905 05/26/2013 METHYLPREDNISOLONE 40 MG INJ CPT-4: J1030 05/26/2013 TRIAMCINOLONE ACET INJ NOS CPT-4: J3301 05/26/2013 ROUTINE VENIPUNCTURE CPT-4: 15932 03/05/2013 ASSAY OF FREE THYROXINE CPT-4: 19942 03/05/2013 ASSAY THYROID STIM HORMONE CPT-4: 99532 03/05/2013 COMPREHEN METABOLIC PANEL CPT-4: 98757 03/05/2013 COMPLETE CBC W/AUTO DIFF WBC CPT-4: 21211 03/05/2013 A1C GLYCOSYLATED HEMOGLOBIN TEST CPT-4: 55716 013 DRAIN/INJECT JOINT/BURSA CPT-4: 67905 12/04/2012 METHYLPREDNISOLONE 40 MG INJ CPT-4: J1030 12/04/2012 TRIAMCINOLONE ACET INJ NOS CPT-4: J3301 12/04/2012 CEFTRIAXONE SODIUM INJECTION CPT-4: J0696 11/21/2012 THER/PROPH/DIAG INJ SC/IM CPT-4: 15086 11/21/2012 THER/PROPH/DIAG INJ SC/IM CPT-4: 04548 10/14/2012 METHYLPREDNISOLONE 40 MG INJ CPT-4: J1030 10/14/2012 TRIAMCINOLONE ACET INJ NOS CPT-4: J3301 10/14/2012 URINALYSIS NONAUTO W/O SCOPE CPT-4: 49597 09/27/2012 ROUTINE VENIPUNCTURE CPT-4: 71674 09/25/2012 ASSAY OF FREE THYROXINE CPT-4: 69855 09/25/2012 ASSAY THYROID STIM HORMONE CPT-4: 34114 09/25/2012 COMPREHEN METABOLIC PANEL CPT-4: 62301 09/25/2012 COMPLETE CBC W/AUTO DIFF WBC CPT-4: 70190 09/25/2012 C-REACTIVE PROTEIN CPT-4: 11572 09/25/2012 THER/PROPH/DIAG INJ SC/IM CPT-4: 78913 08/29/2012 METHYLPREDNISOLONE 40 MG INJ CPT-4: J1030 08/29/2012 TRIAMCINOLONE ACET INJ NOS CPT-4: J3301 08/29/2012 DESTRUCT PREMALG LESION (Cryosurgery) CPT-4: 87831 THER/PROPH/DIAG INJ SC/IM CPT-4: 73250 05/06/2012 METHYLPREDNISOLONE 40 MG INJ CPT-4: J1030 05/06/2012 TRIAMCINOLONE ACET INJ NOS CPT-4: J3301 05/06/2012 VITAMIN B 12 FOLIC ACID CPT-4: 46487|69906 05/06/2012 RBC SED RATE AUTOMATED CPT-4: 71835 05/06/2012 ROUTINE VENIPUNCTURE CPT-4: 68167 05/06/2012 ASSAY OF FREE THYROXINE CPT-4: 83021 05/06/2012 ASSAY THYROID STIM HORMONE CPT-4: 20771 05/06/2012 COMPREHEN METABOLIC PANEL CPT-4: 38826 05/06/2012 COMPLETE CBC W/AUTO DIFF WBC CPT-4: 47317 05/06/2012 ASSAY OF BLOOD/URIC ACID CPT-4: 19421 05/06/2012 THER/PROPH/DIAG INJ SC/IM CPT-4: 15430 03/19/2012 KETOROLAC TROMETHAMINE INJ CPT-4: J1885 03/19/2012 KETOROLAC TROMETHAMINE INJ CPT-4: J1885 01/30/2012 THER/PROPH/DIAG INJ SC/IM CPT-4: 19788 01/30/2012 PROMETHAZINE HCL INJECTION CPT-4: J2550 01/30/2012 THER/PROPH/DIAG INJ SC/IM CPT-4: 42377 01/24/2012 METHYLPREDNISOLONE 40 MG INJ CPT-4: J1030 01/24/2012 TRIAMCINOLONE ACET INJ NOS CPT-4: J3301 01/24/2012 THER/PROPH/DIAG INJ SC/IM CPT-4: 65522 09/13/2011 KETOROLAC TROMETHAMINE INJ CPT-4: J1885 09/13/2011 THER/PROPH/DIAG INJ SC/IM CPT-4: 03516 09/13/2011 PROMETHAZINE HCL INJECTION CPT-4: J2550 09/13/2011 CEFTRIAXONE SODIUM INJECTION CPT-4: J0696 07/20/2011 THER/PROPH/DIAG INJ SC/IM CPT-4: 30660 07/20/2011 THER/PROPH/DIAG INJ SC/IM CPT-4: 16258 07/20/2011 METHYLPREDNISOLONE INJECTION CPT-4: J2930 07/20/2011 URINALYSIS NONAUTO W/O SCOPE CPT-4: 28483 05/09/2011 CEFTRIAXONE SODIUM INJECTION CPT-4: J0696 05/09/2011 THER/PROPH/DIAG INJ SC/IM CPT-4: 27061 05/09/2011 THER/PROPH/DIAG INJ SC/IM CPT-4: 85476 05/09/2011 PROMETHAZINE HCL INJECTION CPT-4: J2550 05/09/2011 HYDRATION IV INFUSION INIT CPT-4: 20736 05/09/2011 DESTRUCT PREMALG LESION (Cryosurgery) CPT-4: 27270 DESTRUCT PREMALG LES 2-14 CPT-4: 55941 07/19/2010 REMOVAL OF SKIN TAGS <W/15 CPT-4: 69048 05/30/2010 THER/PROPH/DIAG INJ SC/IM CPT-4: 55682 04/05/2010 CEFTRIAXONE SODIUM INJECTION CPT-4: J0696 04/05/2010 TRIAMCINOLONE ACET INJ NOS CPT-4: J3301 04/05/2010 METHYLPREDNISOLONE 40 MG INJ CPT-4: J1030 04/05/2010 THER/PROPH/DIAG INJ SC/IM CPT-4: 76275 04/05/2010 TRIAMCINOLONE ACET INJ NOS CPT-4: J3301 03/09/2010 METHYLPREDNISOLONE 40 MG INJ CPT-4: J1030 03/09/2010 THER/PROPH/DIAG INJ SC/IM CPT-4: 63276 03/09/2010 THER/PROPH/DIAG INJ SC/IM CPT-4: 48345 03/09/2010 CEFTRIAXONE SODIUM INJECTION CPT-4: J0696 03/09/2010 Vital Signs Date Vital 05/28/2019 Blood Pressure 1: 126/82 Code: 8480-6 BMI: 35.0 Code: 46966-6 Heart Rate 1: 88 bpm Height: 5'4" [...] 1: 128/90 Code: 8480-6 BMI: 37.2 Code: 99407-9 Heart Rate 1: 84 bpm Height: 5'4" Respiratory Rate: 20 bpm SpO2: 95% Tempera ture: 36.6 (C) / 97.8 (F) Weight: 217 lbs 08/27/2018 Blood Pressure 1: 128/88 Code: 8480-6 BMI: 38.3 Code: 91300-5 Heart Rate 1: 84 bpm Height: 5'4" [...] 1: 119/72 Code: 8480-6 BMI: 37.4 Code: 62107-8 Heart Rate 1: 82 bpm Height: 5'4" Respiratory Rate: 12 bpm SpO2: 94% Tempera ture: 35.2 (C) / 95.4 (F) Weight: 218 lbs 12/18/2017 Blood Pressure 1: 128/86 Code: 8480-6 BMI: 37.8 Code: 87193-3 Heart Rate 1: 84 bpm Height: 5'4" [...] 1: 128/82 Code: 8480-6 BMI: 35.5 Code: 55599-3 Heart Rate 1: 84 bpm Height: 5'4" [...] 1: 128/82 Code: 8480-6 BMI: 30.2 Code: 77070-8 Heart Rate 1: 80 bpm Height: 5'4" [...] 1: 128/86 Code: 8480-6 BMI: 32.8 Code: 75242-4 Heart Rate 1: 66 bpm Height: 5'4" Respiratory Rate: 18 bpm Temperature: 36 .3 (C) / 97.3 (F) Weight: 191 lbs 06/23/2013 Blood Pressure 1: 132/94 Code: 8480-6 BMI: 34.0 Code: 08714-2 Heart Rate 1: 84 bpm Height: 5'4" Respiratory Rate: 20 bpm Temperature: 36 .8 (C) / 98.2 (F) Weight: 198 lbs 05/26/2013 Blood Pressure 1: 114/80 Code: 8480-6 BMI: 35.0 Code: 51013-8 Heart Rate 1: 80 bpm Height: 5'4" Respiratory Rate: 20 bpm Temperature: 36 .4 (C) / 97.6 (F) Weight: 204 lbs 04/16/2013 Blood Pressure 1: 114/82 Code: 8480-6 BMI: 36.7 Code: 94511-3 Heart Rate 1: 84 bpm Height: 5'4" Respiratory Rate: 20 bpm Temperature: 36 .7 (C) / 98.0 (F) Weight: 214 lbs 03/05/2013 Blood Pressure 1: 136/90 Code: 8480-6 BMI: 37.1 Code: 13390-7 Heart Rate 1: 84 bpm Height: 5'4" [...] 1: 168/114 Code: 8480-6 BMI: 36.2 Code: 97848-0 Heart Rate 1: 104 bpm Height: 5'4" Respiratory Rate: 20 bpm Temperature: 36 .8 (C) / 98.2 (F) Weight: 211 lbs 11/22/2012 Blood Pressure 1: 128/90 Code: 8480-6 Heart Rate 1: 88 bpm Respiratory Rate: 20 bpm SpO2: 96% Temperature: 36.8 (C) / 98.2 (F) 11/21/2012 Blood Pressure 1: 146/100 Code: 8480-6 BMI: 35.7 Code: 92261-6 Heart Rate 1: 96 bpm Height: 5'4" [...] 1: 138/100 Code: 8480-6 BMI: 35.7 Code: 84908-2 Heart Rate 1: 96 bpm Height: 5'4" Respiratory Rate: 20 bpm Temperature: 36 .8 (C) / 98.2 (F) Weight: 208 lbs 05/06/2012 Blood Pressure 1: 154/102 Code: 8480-6 BMI: 34.7 Code: 24934-1 Heart Rate 1: 116 bpm Height: 5'4" Respiratory Rate: 20 bpm Temperature: 36 .8 (C) / 98.2 (F) Weight: 202 lbs 04/03/2012 Blood Pressure 1: 134/94 Code: 8480-6 BMI: 34.8 Code: 70220-9 Heart Rate 1: 108 bpm Height: 5'4" Respiratory Rate: 20 bpm Temperature: 36 .8 (C) / 98.2 (F) Weight: 203 lbs 03/19/2012 Blood Pressure 1: 148/106 Code: 8480-6 BMI: 35.0 Code: 88046-5 Heart Rate 1: 100 bpm Height: 5'4" Respiratory Rate: 20 bpm Temperature: 36 .6 (C) / 97.9 (F) Weight: 204 lbs 02/22/2012 Blood Pressure 1: 146/94 Code: 8480-6 He art Rate 1: 88 bpm 02/21/2012 Blood Pressure 1: 172/120 Code: 8480-6 B lood Pressure 2: 152/106 Code: 8480-6 Heart Rate 1: 116 bpm 02/20/2012 Blood Pressure 1: 160/100 Code: 8480-6 BMI: 32.0 Code: 62621-8 Heart Rate 1: 84 bpm Height: 5'7" Temperature: 36.5 (C) / 97.7 (F) Weight: 204 lbs 01/30/2012 Blood Pressure 1: 152/110 Code: 8480-6 BMI: 32.0 Code: 42110-3 Heart Rate 1: 116 bpm Height: 5'7" Respiratory Rate: 20 bpm Temperature: 37 .0 (C) / 98.6 (F) Weight: 204 lbs 01/24/2012 Blood Pressure 1: 146/100 Code: 8480-6 BMI: 32.0 Code: 74074-1 Heart Rate 1: 100 bpm Height: 5'7" Respiratory Rate: 20 bpm Temperature: 36 .7 (C) / 98.0 (F) Weight: 204 lbs 01/10/2012 Blood Pressure 1: 156/94 Code: 8480-6 BMI: 32.6 Code: 04421-9 Heart Rate 1: 72 bpm Height: 5'7" Respiratory Rate: 20 bpm Temperature: 36 .8 (C) / 98.2 (F) Weight: 208 lbs 12/11/2011 Blood Pressure 1: 146/100 Code: 8480-6 Heart Rat e 1: 116 bpm Height: 5'7" Respiratory Rate: 20 bpm Temperature: 36.9 (C) / 98.4 (F) We ight: 11/09/2011 Blood Pressure 1: 148/96 Code: 8480-6 BMI: 32.1 Code: 77688-0 Heart Rate 1: 116 bpm Height: 5'7" Respiratory Rate: 20 bpm Temperature: 36 .7 (C) / 98.0 (F) Weight: 205 lbs 09/13/2011 Blood Pressure 1: 126/88 Code: 8480-6 Heart Rate 1: 88 bpm Height: 5'7" Respiratory Rate: 20 bpm Temperature: 36.9 (C) / 98.4 (F) We ight: 08/31/2011 Blood Pressure 1: 118/82 Code: 8480-6 BMI: 32.0 Code: 86162-3 Heart Rate 1: 80 bpm Height: 5'7" Temperature: 36.4 (C) / 97.6 (F) Weight: 204 lbs 07/06/2011 Blood Pressure 1: 128/86 Code: 8480-6 BMI: 30.9 Code: 94932-6 Heart Rate 1: 92 bpm Height: 5'7" Respiratory Rate: 20 bpm Temperature: 36 .9 (C) / 98.4 (F) Weight: 197 lbs 06/06/2011 Blood Pressure 1: 112/74 Code: 8480-6 BMI: 31.0 Code: 93918-9 Heart Rate 1: 72 bpm Height: 5'7" [...] 1: 128/92 Code: 8480-6 BMI: 33.6 Code: 99720-4 Heart Rate 1: 104 bpm Height: 5'4" [...] Check-up Encounters Encounter Performer Location Codes Date ([id number]) OFFICE/OUTPATIENT VISIT EST Diagnosis: Essential (primary) hypertension[ICD10: I10] Diagnosis: Fall from bed, sequela[ICD10: W06.XXXS] María Elena [facility] CPT-4: 09861 05/28/2019 ([id number]) NURSE/OUTPATIENT VISIT EST Diagnosis: Essential (primary) hypertension[ICD10: I10] María Elena [employer] CPT-4: 23686 05/19/2019 ([id number]) OFFICE/OUTPATIENT VISIT EST Diagnosis: Essential (primary) hypertension[ICD10: I10] Diagnosis: Type 2 diabetes mellitus with hyperglycemia[ICD10: E11.65] Diagnosis: Intervertebral disc disorders with radiculopathy, 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] Diagnosis: Hormone replacement therapy[ICD10: Z79.890] María Elena [employer] CPT-4: 60969 01/22/2019 ([id number]) OFFICE/OUTPATIENT VISIT EST Diagnosis: Essential (primary) hypertension[ICD10: I10] Diagnosis: Type 2 diabetes mellitus with hyperglycemia[ICD10: E11.65] María Elena [employer] [facility] CPT-4: 71840 09/30/2018 ([id number]) OFFICE/OUTPATIENT VISIT EST Diagnosis: Pain in left elbow[ICD10: M25.522] Diagnosis: Acute stress reaction[ICD10: F43.0] Diagnosis: Primary insomnia[ICD10: F51.01] Diagnosis: Abnormal weight gain[ICD10: R63.5] María Elena Hicks [facility] CPT-4: 79541 08/27/2018 ([id number]) OFFICE/OUTPATIENT VISIT EST Diagnosis: Acute recurrent sinusitis, unspecified[ICD10: J01.91] Diagnosis: Follicular disorder, unspecified[ICD10: L73.9] Diagnosis: Tinea corporis[ICD10: B35.4] María Elena [facility] CPT-4: 80229 08/09/2018 ([id number]) OFFICE/OUTPATIENT VISIT EST Diagnosis: Tinea corporis[ICD10: B35.4] Diagnosis: Anxiety disorder, unspecified[ICD10: F41.9] Diagnosis: Menopausal and female climacteric states[ICD10: N95.1] María Elena [facility] CPT-4: 48399 07/22/2018 ([id number]) NURSE/OUTPATIENT VISIT EST Diagnosis: Cellulitis of right toe[ICD10: L03.031] María Elena [facility] CPT-4: 49755 06/19/2018 ([id number]) OFFICE/OUTPATIENT VISIT EST Diagnosis: Cellulitis of right toe[ICD10: L03.031] Kathleen [facility] CPT-4: 07247 06/17/2018 ([id number]) OFFICE/OUTPATIENT VISIT EST Diagnosis: Migraine without aura, intractable, without status migrainosus[ICD10: G43.019] Diagnosis: Zoster without complications[ICD10: B02.9] Kathleen [facility] CPT-4: 72254 05/16/2018 ([id number]) OFFICE/OUTPATIENT VISIT EST Diagnosis: Cellulitis of right lower limb[ICD10: L03.115] Kathleen [facility] CPT-4: 66467 03/20/2018 ([id number]) OFFICE/OUTPATIENT VISIT EST Diagnosis: Cellulitis of right lower limb[ICD10: L03.115] Kathleen [facility] CPT-4: 02898 03/18/2018 ([id number]) OFFICE/OUTPATIENT VISIT EST Diagnosis: Cellulitis of right lower limb[ICD10: L03.115] Kathleen [facility] CPT-4: 01876 03/15/2018 ([id number]) OFFICE/OUTPATIENT VISIT EST Diagnosis: Acute sinusitis, unspecified[ICD10: J01.90] Kathleen [facility] CPT-4: 86709 02/11/2018 ([id number]) NURSE/OUTPATIENT VISIT EST Diagnosis: Otitis media, unspecified, right ear[ICD10: H66.91] María Elena [facility] CPT-4: 09821 02/01/2018 ([id number]) OFFICE/OUTPATIENT VISIT EST Diagnosis: Acute suppurative otitis media without spontaneous rupture of ear drum, left ear[ICD10: H66.002] Diagnosis: Abnormal weight gain[ICD10: R63.5] Diagnosis: Intervertebral disc disorders with radiculopathy, 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] Kathleen [facility] CPT-4: 99 214 01/30/2018 ([id number]) PREV VISIT EST AGE 40-64 Diagnosis: Encounter for general adult medical examination without abnormal findings[ICD10: Z00.00] Diagnosis: Essential (primary) hypertension[ICD10: I10] Diagnosis: Mixed hyperlipidemia[ICD10: E78.2] Diagnosis: Type 2 diabetes mellitus with hyperglycemia[ICD10: E11.65] Diagnosis: 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] María Elena [facility] [employer] [facility] CPT-4: 28023 12/18/2017 ([id number]) OFFICE/OUTPATIENT VISIT EST Diagnosis: Cellulitis of right toe[ICD10: L03.031] Diagnosis: Mixed hyperlipidemia[ICD10: E78.2] Diagnosis: Essential (primary) hypertension[ICD10: I10] Diagnosis: Hyperglycemia, unspecified[ICD10: R73.9] Diagnosis: Nontoxic goiter, 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] María Elena [facility] CPT-4: 18563 12/10/2017 ([id number]) OFFICE/OUTPATIENT VISIT EST Diagnosis: Cellulitis of right toe[ICD10: L03.031] Diagnosis: Acute sinusitis, unspecified[ICD10: J01.90] Kathleen [facility] CPT-4: 09848 12/07/2017 OFFICE/OUTPATIENT VISIT EST Diagnosis: Acute maxillary sinusitis, unspecified[ICD10: J01.00] Kathleen [facility] CPT-4: 71948 10/08/2017 ([id number]) OFFICE/OUTPATIENT VISIT EST Diagnosis: Cellulitis of left toe[ICD10: L03.032] María Elena [facility] CPT-4: 68380 09/21/2017 ([id number]) OFFICE/OUTPATIENT VISIT EST Diagnosis: Insomnia, unspecified[ICD10: G47.00] Diagnosis: Major depressive disorder, single episode, unspecified[ICD10: F32.9] Diagnosis: Anxiety disorder, unspecified[ICD10: F41.9] Diagnosis: Cellulitis of left toe[ICD10: L03.032] Diagnosis: Snoring[ICD10: R06.83] Kathleen [facility] CPT-4: 52034 09/20/2017 ([id number]) OFFICE/OUTPATIENT VISIT EST Diagnosis: Cellulitis of left toe[ICD10: L03.032] María Elena [facility] CPT-4: 05825 07/19/2017 OFFICE/OUTPATIENT VISIT EST Diagnosis: Chronic sinusitis, unspecified[ICD10: J32.9] Diagnosis: Generalized hyperhidrosis[ICD10: R61] Kathleen [facility] CPT-4: 15561 06/27/2017 ([id number]) OFFICE/OUTPATIENT VISIT EST Diagnosis: Intervertebral disc disorders with radiculopathy, 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] Diagnosis: Primary insomnia[ICD10: F51.01] Diagnosis: Other fatigue[ICD10: R53.83] María Elena [facility] CPT-4: 42105 04/10/2017 ([id number]) OFFICE/OUTPATIENT VISIT EST Diagnosis: Primary insomnia[ICD10: F51.01] Diagnosis: Localized edema[ICD10: R60.0] Diagnosis: 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] María Elena [facility] CPT-4: 84757 12/13/2016 ([id number]) OFFICE/OUTPATIENT VISIT EST Diagnosis: Primary insomnia[ICD10: F51.01] Diagnosis: Cyanosis[ICD10: R23.0] María Elena [employer] [facility] CPT-4: 04255 11/01/2016 ([id number]) PREV VISIT EST AGE 40-64 Diagnosis: Encounter for gynecological examination (general) (routine) without abnormal findings[ICD10: Z01.419] Diagnosis: Encounter for routine child health examination without abnormal findings[ICD10: Z00.129] María Elena [facility] CPT-4: 40905 10/17/2016 ([id number]) OFFICE/OUTPATIENT VISIT EST Diagnosis: Other seasonal allergic rhinitis[ICD10: J30.2] María Elena [facility] CPT-4: 47768 10/10/2016 ([id number]) OFFICE/OUTPATIENT VISIT EST Diagnosis: Pain in left arm[ICD10: M79.602] Diagnosis: Contact with and (suspected) exposure to potentially hazardous body fluids[ICD10: Z77.21] Diagnosis: 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, 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] Diagnosis: Unspecified open wound, right foot, sequela[ICD10: S91.301S] María Elena [facility] CPT-4: 00841 09/19/2016 ([id number]) OFFICE/OUTPATIENT VISIT EST Diagnosis: Chronic sinusitis, unspecified[ICD10: J32.9] Diagnosis: Allergic rhinitis due to pollen[ICD10: J30.1] María Elena [facility] CPT-4: 22218 08/24/2016 ([id number]) OFFICE/OUTPATIENT VISIT EST Diagnosis: Acute bronchitis, unspecified[ICD10: J20.9] María Elena [facility] CPT-4: 10714 08/16/2016 ([id number]) OFFICE/OUTPATIENT VISIT EST Diagnosis: Otitis media, unspecified, right ear[ICD10: H66.91] Diagnosis: Acute bronchitis, unspecified[ICD10: J20.9] María Elena [facility] CPT-4: 24869 08/10/2016 ([id number]) OFFICE/OUTPATIENT VISIT EST Diagnosis: Acute recurrent sinusitis, unspecified[ICD10: J01.91] Diagnosis: Allergic rhinitis due to pollen[ICD10: J30.1] María Elena [facility] CPT-4: 98013 08/02/2016 ([id number]) OFFICE/OUTPATIENT VISIT EST Diagnosis: Pain in unspecified joint[ICD10: M25.50] María Elena [facility] CPT-4: 53219 07/27/2016 OFFICE/OUTPATIENT VISIT EST Diagnosis: 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] Diagnosis: Acute recurrent sinusitis, unspecified[ICD10: J01.91] Diagnosis: Other fatigue[ICD10: R53.83] Diagnosis: Primary insomnia[ICD10: F51.01] Diagnosis: Pain in unspecified joint[ICD10: M25.50] María Elena [facility] CPT-4: 39626 07/20/2016 ([id number]) OFFICE/OUTPATIENT VISIT EST Diagnosis: Blister (nonthermal), left great toe, initial encounter[ICD10: S90.422A] Loan [facility] CPT-4: 87314 ([id number]) OFFICE/OUTPATIENT VISIT EST Diagnosis: Acute recurrent sinusitis, unspecified[ICD10: J01.91] María Elena [facility] CPT-4: 71111 05/25/2016 ([id number]) OFFICE/OUTPATIENT VISIT EST Diagnosis: Acute sinusitis, unspecified[ICD10: J01.90] María Elena [facility] CPT-4: 38102 04/26/2016 ([id number]) OFFICE/OUTPATIENT VISIT EST Diagnosis: Flushing[ICD10: R23.2] Diagnosis: Primary insomnia[ICD10: F51.01] María Elena [facility] CPT-4: 61871 03/02/2016 ([id number]) OFFICE/OUTPATIENT VISIT EST Diagnosis: Other seasonal allergic rhinitis[ICD10: J30.2] Loan [facility] CPT-4: 18275 02/09/2016 ([id number]) OFFICE/OUTPATIENT VISIT EST Diagnosis: Primary insomnia[ICD10: F51.01] Diagnosis: Urinary tract infection, site not specified[ICD10: N39.0] María Elena [facility] CPT-4: 09723 01/24/2016 ([id number]) OFFICE/OUTPATIENT VISIT EST Diagnosis: Other specified disorders of Eustachian tube, bilateral[ICD10: H69.83] Diagnosis: Allergic rhinitis, unspecified[ICD10: J30.9] Loan [facility] CPT-4: 64111 12/23/2015 ([id number]) OFFICE/OUTPATIENT VISIT EST Diagnosis: Acute recurrent sinusitis, unspecified[ICD10: J01.91] Diagnosis: 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] Diagnosis: Allergic rhinitis, unspecified[ICD10: J30.9] María Elena [facility] CPT-4: 77883 12/08/2015 ([id number]) OFFICE/OUTPATIENT VISIT EST Diagnosis: Allergic rhinitis, unspecified[ICD10: J30.9] Diagnosis: Pain in unspecified joint[ICD10: M25.50] María Elena [facility] CPT-4: 82481 10/07/2015 ([id number]) OFFICE/OUTPATIENT VISIT EST Diagnosis: Essential (primary) hypertension[ICD10: I10] María Elena [facility] CPT-4: 93325 10/06/2015 OFFICE/OUTPATIENT VISIT EST Diagnosis: Localized enlarged lymph nodes[ICD10: R59.0] Diagnosis: Local infection of the skin and subcutaneous tissue, unspecified[ICD10: L08.9] June [facility] CPT- 4: 52323 09/14/2015 ([id number]) OFFICE/OUTPATIENT VISIT EST Diagnosis: Essential (primary) hypertension[ICD10: I10] Diagnosis: Actinic keratosis[ICD10: L57.0] María Elena [facility] CPT-4: 59236 09/07/2015 ([id number]) OFFICE/OUTPATIENT VISIT EST Diagnosis: Essential (primary) hypertension[ICD10: I10] Diagnosis: Acute stress reaction[ICD10: F43.0] María Elena [facility] CPT-4: 33382 08/18/2015 ([id number]) OFFICE/OUTPATIENT VISIT EST Diagnosis: Essential (primary) hypertension[ICD10: I10] María Elena [facility] CPT-4: 13292 07/07/2015 ([id number]) OFFICE/OUTPATIENT VISIT EST Diagnosis: Essential (primary) hypertension[ICD10: I10] María Elena [facility] CPT-4: 08205 06/24/2015 ([id number]) OFFICE/OUTPATIENT VISIT EST Diagnosis: Essential (primary) hypertension[ICD10: I10] María Elena [facility] CPT-4: 98704 06/21/2015 ([id number]) OFFICE/OUTPATIENT VISIT EST Diagnosis: Essential (primary) hypertension[ICD10: I10] Diagnosis: Mixed hyperlipidemia[ICD10: E78.2] Diagnosis: Acute stress reaction[ICD10: F43.0] Diagnosis: Primary insomnia[ICD10: F51.01] María Elena [facility] CPT-4: 64338 06/16/2015 ([id number]) OFFICE/OUTPATIENT VISIT EST Diagnosis: INSOMNIA NOS[ICD9: 780.52] Diagnosis: HYPERTENSION[ICD9: 401.9] Diagnosis: Stress reaction[ICD9: 308.9] María Elena [facility] CPT-4: 21316 06/02/2015 ([id number]) OFFICE/OUTPATIENT VISIT EST Diagnosis: HYPERTENSION[ICD9: 401.9] Diagnosis: Stress reaction[ICD9: 308.9] María Elena [facility] CPT-4: 77004 05/20/2015 ([id number]) OFFICE/OUTPATIENT VISIT EST Diagnosis: Skin lesion[ICD9: 709.9] 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] María Elena [facility] CPT-4: 53877 05/10/2015 ([id number]) OFFICE/OUTPATIENT VISIT EST Diagnosis: SINUSITIS, ACUTE[ICD9: 461.9] Diagnosis: ALLERGIC RHINITIS[ICD9: 477.9] Diagnosis: DERMATITIS NOS[ICD9: 692.9] María Elena [facility] CPT-4: 44665 03/16/2015 OFFICE/OUTPATIENT VISIT EST Diagnosis: Otitis media[ICD9: 382.9] Diagnosis: SINUSITIS, ACUTE[ICD9: 461.9] June Felixdaniella [facility] CPT-4: 73237 09/11/2014 ([id number]) OFFICE/OUTPATIENT VISIT EST Diagnosis: HYPERLIPIDEMIA NEC/NOS[ICD9: 272.4] María Elena [facility] CPT-4: 71139 08/31/2014 ([id number]) OFFICE/OUTPATIENT VISIT EST Diagnosis: - I - HYPERTENSION[ICD9: 401.9] Diagnosis: HYPERLIPIDEMIA NEC/NOS[ICD9: 272.4] María Elena [facility] CPT-4: 41960 08/27/2014 ([id number]) OFFICE/OUTPATIENT VISIT EST Diagnosis: ABDOMINAL PAIN[ICD9: 789.00] Diagnosis: DYSPEPSIA[ICD9: 536.8] Diagnosis: Thoracic back pain[ICD9: 724.1] María Elena [facility] CPT-4: 73310 07/21/2014 ([id number]) OFFICE/OUTPATIENT VISIT EST Diagnosis: ALLERGIC RHINITIS[ICD9: 477.9] María Elena [facility] CPT-4: 71616 07/15/2014 ([id number]) OFFICE/OUTPATIENT VISIT EST Diagnosis: EDEMA[ICD9: 782.3] Diagnosis: Chronic insomnia[ICD9: 780.52] María Elena [facility] CPT-4: 48928 05/18/2014 ([id number]) OFFICE/OUTPATIENT VISIT EST Diagnosis: Thyromegaly[ICD9: 240.9] Diagnosis: - I - HYPERTENSION[ICD9: 401.9] Diagnosis: ROUTINE MEDICAL EXAM[ICD9: V70.0] Diagnosis: EDEMA[ICD9: 782.3] María Elena [facility] CPT-4: 08842 05/14/2014 OFFICE/OUTPATIENT VISIT EST Diagnosis: BRONCHITIS, ACUTE[ICD9: 466.0] Diagnosis: SINUSITIS, ACUTE[ICD9: 461.9] María Elena [facility] CPT-4: 07628 04/21/2014 OFFICE/OUTPATIENT VISIT EST Diagnosis: SINUSITIS, ACUTE[ICD9: 461.9] June Gabriellare MARÍA ELENA [facility] CPT-4: 84999 03/04/2014 ([id number]) OFFICE/OUTPATIENT VISIT EST Diagnosis: VACCINE FOR TDAP[ICD10: Z23] María Elena [facility] CPT-4: 54994 02/27/2014 ([id number]) OFFICE/OUTPATIENT VISIT EST Diagnosis: Seborrheic keratoses, inflamed[ICD9: 702.11] Diagnosis: ACTINIC KERATOSIS[ICD9: 702.0] Diagnosis: INSOMNIA NOS[ICD9: 780.52] María Elena [facility] CPT-4: 57229 01/13/2014 OFFICE/OUTPATIENT VISIT EST Diagnosis: EUSTACHIAN TUBE DYSFUNCTION[ICD9: 381.81] Diagnosis: ALLERGIC RHINITIS[ICD9: 477.9] Diagnosis: Serous otitis media[ICD9: 381.4] María Elena [facility] CPT-4: 30140 12/24/2013 ([id number]) OFFICE/OUTPATIENT VISIT EST Diagnosis: SINUSITIS, ACUTE[ICD9: 461.9] Diagnosis: ALLERGIC RHINITIS[ICD9: 477.9] Diagnosis: EUSTACHIAN TUBE DYSFUNCTION[ICD9: 381.81] María Elena [facility] CPT-4: 45523 11/12/2013 ([id number]) OFFICE/OUTPATIENT VISIT EST Diagnosis: ALLERGIC RHINITIS[ICD9: 477.9] Diagnosis: SINUSITIS, ACUTE[ICD9: 461.9] María Elena [facility] CPT-4: 37329 10/21/2013 ([id number]) OFFICE/OUTPATIENT VISIT EST Diagnosis: ASYMPTOMATIC VARICOSE VEINS[ICD9: 454.9] Diagnosis: INSOMNIA NOS[ICD9: 780.52] María Elena [facility] CPT-4: 84903 09/22/2013 OFFICE/OUTPATIENT VISIT EST Diagnosis: SINUSITIS, ACUTE[ICD9: 461.9] June Washingtongurmeetfatimah MARÍA ELENA [facility] CPT-4: 70744 08/27/2013 ([id number]) OFFICE/OUTPATIENT VISIT EST Diagnosis: CEPHALGIA[ICD9: 784.0] Diagnosis: CEPHALGIA, TENSION[ICD9: 307.81] 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] María Elena [facility] CPT-4: 88486 08/04/2013 ([id number]) OFFICE/OUTPATIENT VISIT EST Diagnosis: Cervicalgia[ICD9: 723.1] Diagnosis: SPASM OF MUSCLE[ICD9: 728.85] Diagnosis: CEPHALGIA, TENSION[ICD9: 307.81] María Elena [facility] CPT-4: 79017 07/23/2013 ([id number]) OFFICE/OUTPATIENT VISIT EST Diagnosis: EUSTACHIAN TUBE DYSFUNCTION[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: 50129 04/16/2013 ([id number]) OFFICE/OUTPATIENT VISIT EST Diagnosis: SINUSITIS, ACUTE[ICD9: 461.9] Diagnosis: ALLERGIC RHINITIS[ICD9: 477.9] Diagnosis: EDEMA[ICD9: 782.3] Diagnosis: Thyromegaly[ICD9: 240.9] Diagnosis: MALAISE AND FATIGUE[ICD9: 780.79] María Elena Hicks [facility] CPT-[facility]: 79465 03/05/2013 ([id number]) OFFICE/OUTPATIENT VISIT EST Diagnosis: PAIN, LOWER BACK[ICD9: 724.2] Diagnosis: SPASM OF MUSCLE[ICD9: 728.85] María Elena Hicks [facility] CPT[facility]: 11252 12/23/2012 OFFICE/OUTPATIENT VISIT EST Diagnosis: Low back pain[ICD9: 724.2] Lashawn Hicks [facility] CPT-4: 32490 12/16/2012 ([id number]) OFFICE/OUTPATIENT VISIT EST Diagnosis: PAIN, LOWER BACK[ICD9: 724.2] Diagnosis: SCIATICA[ICD9: 724.3] Diagnosis: Lumbar herniated disc[ICD9: 722.10] María Elena Hicks [facility] CPT-4: 57725 12/09/2012 ([id number]) OFFICE/OUTPATIENT VISIT EST Diagnosis: PAIN, LOWER BACK[ICD9: 724.2] Diagnosis: SCIATICA[ICD9: 724.3] Diagnosis: LUMBAR DISC DISPLACEMENT[ICD9: 722.10] María Elena ISAAC TANIA APPIAH DO [facility] CPT-4: 65456 12/04/2012 OFFICE/OUTPATIENT VISIT EST Diagnosis: Pneumonia[ICD9: 486] Mary SerranoRustam MARÍA ELENA APPIAH DO [facility] CPT-4: 01146 11/22/2012 ([id number]) OFFICE/OUTPATIENT VISIT EST Diagnosis: PNEUMONIA, ORGANISM[ICD9: 486] Diagnosis: Exacerbation of RAD (reactive airway disease)[ICD9: 493.92] María Elena APPIAH DO [facility] CPT-4: 64037 11/21/2012 OFFICE/OUTPATIENT VISIT EST Diagnosis: HYPERTENSION[ICD9: 401.9] Diagnosis: Cephalgia[ICD9: 784.0] Lashawn Eckert MARÍA ELENA APPIAH DO [facility] CPT-4: 41528 10/29/2012 ([id number]) OFFICE/OUTPATIENT VISIT EST Diagnosis: MALAISE AND FATIGUE[ICD9: 780.79] Diagnosis: ARTHRALGIA-MULTIPLE SITES[ICD9: 719.49] María Elena APPIAH DO [facility] CPT-4: 50416 10/14/2012 ([id number]) OFFICE/OUTPATIENT VISIT EST Diagnosis: URINARY FREQUENCY[ICD9: 788.41] María Elena APPIAH DO [facility] CPT-4: 79024 09/27/2012 ([id number]) OFFICE/OUTPATIENT VISIT EST Diagnosis: MALAISE AND FATIGUE[ICD9: 780.79] Diagnosis: ARTHRALGIA-MULTIPLE SITES[ICD9: 719.49] María Elena Seamusdawn KYLAH APPIAH DO [facility] CPT-4: 46856 09/25/2012 ([id number]) OFFICE/OUTPATIENT VISIT EST Diagnosis: SINUSITIS, ACUTE[ICD9: 461.9] Diagnosis: EUSTACHIAN TUBE DYSFUNCTION[ICD9: 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] María Elena Td APPIAH DO [facility] CPT-4: 72119 08/29/2012 OFFICE/OUTPATIENT VISIT EST Diagnosis: ACTINIC KERATOSIS[ICD9: 702.0] Diagnosis: Inflamed seborrheic keratosis[ICD9: 702.11] Diagnosis: Skin cancer of face[ICD9: 173.31] Diagnosis: HYPERTENSION[ICD9: 401.9] María Elena WAY NDER [facility] CPT-4: 36009 08/12/2012 ([id number]) OFFICE/OUTPATIENT VISIT EST Diagnosis: ARTHRALGIA-MULTIPLE SITES[ICD9: 719.49] Diagnosis: GOUT[ICD9: 274.9] Diagnosis: HYPERTENSION[ICD9: 401.9] Diagnosis: Tachycardia[ICD9: 785.0] María Elena HU KARLOS [facility] CPT-4: 11996 05/06/2012 ([id number]) OFFICE/OUTPATIENT VISIT EST Diagnosis: INSOMNIA NOS[ICD9: 780.52] María Elena KENTER [facility] CPT-4: 96367 04/03/2012 ([id number]) OFFICE/OUTPATIENT VISIT EST Diagnosis: INSOMNIA NOS[ICD9: 780.52] Diagnosis: HYPERTENSION[ICD9: 401.9] Diagnosis: MIGRAINE NOS/NOT INTRCBL[ICD9: 346.90] María Elena Waymindimaryjane CulverJARED SJj [facility] CPT-[facility]: 00663 03/19/2012 ([id number]) OFFICE/OUTPATIENT VISIT EST Diagnosis: CELLULITIS[ICD9: 682.9] Diagnosis: Ankle pain[ICD9: 719.47] Diagnosis: HYPERTENSION[ICD9: 401.9] María Elena WAY NDERose Mary [facility] CPT-4: 82187 02/20/2012 ([id number]) OFFICE/OUTPATIENT VISIT EST Diagnosis: MIGRAINE NOS/NOT INTRCBL[ICD9: 346.90] Diagnosis: Vomiting[ICD9: 787.03] María Elena TANNER R [facility] CPT-4: 82944 01/30/2012 ([id number]) OFFICE/OUTPATIENT VISIT EST Diagnosis: EDEMA[ICD9: 782.3] Diagnosis: HYPERTENSION[ICD9: 401.9] Diagnosis: ALLERGIC RHINITIS[ICD9: 477.9] Diagnosis: ARTHRALGIA-MULTIPLE SITES[ICD9: 719.49] María Elena Waymindimaryjane ValdesJj [facility] [employer] [facility] CPT-4: 74048 01/24/2012 ([id number]) OFFICE/OUTPATIENT VISIT EST Diagnosis: SPASM OF MUSCLE[ICD9: 728.85] Diagnosis: Thoracic back pain[ICD9: 724.1] Diagnosis: Cervical pain[ICD9: 723.1] María Elena Seamusmindimaryjane MARÍA ELENA Fabiola PANDYA [facility] CPT-4: 91015 01/10/2012 OFFICE/OUTPATIENT VISIT EST Diagnosis: PAIN, LOWER BACK[ICD9: 724.2] Diagnosis: LUMBAR DISC DISPLACEMENT[ICD9: 722.10] María Elena ISAAC TANIA ValdesJj TD [facility] CPT-4: 91051 12/11/2011 OFFICE/OUTPATIENT VISIT EST Diagnosis: MIGRAINE NOS/NOT INTRCBL[ICD9: 346.90] Diagnosis: SINUSITIS, ACUTE[ICD9: 461.9] María Elena Seamusmindimaryjane MARÍA ELENA LucioJj [facility] CPT-4: 46180 11/09/2011 OFFICE/OUTPATIENT VISIT EST Diagnosis: MIGRAINE NOS/NOT INTRCBL[ICD9: 346.90] Diagnosis: LYMPHADENOPATHY[ICD9: 785.6] María Elena Seamusmindimaryjane MARÍA ELENA LucioJj [facility] CPT-4: 14441 09/13/2011 OFFICE/OUTPATIENT VISIT EST Diagnosis: MALAISE AND FATIGUE[ICD9: 780.79] Diagnosis: ARTHRALGIA-MULTIPLE SITES[ICD9: 719.49] María Elena Seamusdawn MONTERO APARNAALCIDES LucioJj [facility] CPT-4: 45659 08/31/2011 OFFICE/OUTPATIENT VISIT EST Diagnosis: SINUSITIS, ACUTE[ICD9: 461.9] María Elena Seamusdawn JUARES LucioJj TD [facility] CPT-4: 75690 07/20/2011 OFFICE/OUTPATIENT VISIT EST Diagnosis: HYPERTENSION[ICD9: 401.9] Diagnosis: PAIN, LOWER BACK[ICD9: 724.2] Diagnosis: SPASM OF MUSCLE[ICD9: 728.85] María Elena JUARES LucioJj [facility] CPT-4: 23544 07/06/2011 OFFICE/OUTPATIENT VISIT EST Diagnosis: MIGRAINE NOS/NOT INTRCBL[ICD9: 346.90] Diagnosis: HYPERTENSION[ICD9: 401.9] María Elena JUARES S. ORE NDER DO [facility] CPT-4: 83534 05/22/2011 OFFICE/OUTPATIENT VISIT EST Diagnosis: SINUSITIS, ACUTE[ICD9: 461.9] Diagnosis: MIGRAINE NOS/NOT INTRCBL[ICD9: 346.90] Diagnosis: Dehydration[ICD9: 276.51] Diagnosis: Vomiting[ICD9: 787.03] María Elena MONTEROQUELINE Lucio. ORENDE R DO [facility] CPT-4: 51584 05/09/2011 ([id number]) OFFICE/OUTPATIENT VISIT EST María Elena Td ISAAC UELINE S. ORENDER DO [facility] CPT-4: 54083 02/14/2011 ([id number]) OFFICE/OUTPATIENT VISIT EST María Elena Seamusmindimaryjane ISAAC UELINE S. ORENDER DO [facility] CPT-4: 85874 02/03/2011 ([id number]) OFFICE/OUTPATIENT VISIT EST María Elena Seamusmindimaryjane ISAAC UELINE S. ORENDER DO [facility] CPT-4: 81979 01/31/2011 ([id number]) OFFICE/OUTPATIENT VISIT EST María Elena Seamusmindimaryjane ISAAC UELINE S. ORENDER DO [facility] CPT-4: 24240 01/25/2011 ([id number]) OFFICE/OUTPATIENT VISIT EST María Elena Td ISAAC UELINE S. ORENDER DO [facility] CPT-4: 37217 01/18/2011 ([id number]) OFFICE/OUTPATIENT VISIT EST María Elena ISAAC UELINE S. ORENDER DO [facility] CPT-4: 00494 11/29/2010 ([id number]) OFFICE/OUTPATIENT VISIT, EST María Elena MONTERO QUEALCIDES S. ORENDER DO [facility] CPT-4: 36819 10/10/2010 ([id number]) OFFICE/OUTPATIENT VISIT, EST María Elena Seamusdawn MONTERO APARNAALCIDES S. ORENDER DO [facility] CPT-4: 02807 06/07/2010 ([id number]) OFFICE/OUTPATIENT VISIT, EST María Elena MONTERO QUEALCIDES S. ORENDER DO [facility] CPT-4: 02585 04/27/2010 ([id number]) OFFICE/OUTPATIENT VISIT, EST María Elena MONTERO APARNAALCIDES S. ORENDER DO [facility] CPT-4: 97979 04/05/2010 ([id number]) OFFICE/OUTPATIENT VISIT, EST [facility]ía Elena [facility] CPT-4: 48364 03/09/2010 ([id number]) OFFICE/OUTPATIENT VISIT, EST María Elena [facility] CPT-4: 81155 03/03/2010 ([id number]) OFFICE/OUTPATIENT VISIT, EST María Elena [facility] CPT-4: 86634 01/17/2010 ([id number]) PREV VISIT, EST, AGE 40-64 María Elena [facility] CPT-4: 34358 12/27/2009 Plan of Care Planned Activity Notes Codes Status Date Appointment: María Elena Appiah WPtel: [address] [place], [place] [id number] [place] Won't have the new insurance till [...] 05/28/2019 Appointment: María Elena Appiah WPtel: [address] [place], [place] [id number] [place] FOLLOW UP 05/28/2019 Appointment: María Elena Appiah WPtel: [address] [place], [place] [phone] [place] BP CHECK 05/19/2019 Visit Diagnosis Plan: [...] 01/22/2019 Appointment: María Elena Appiah WPtel: [address] [place], [place] [phone] [place] FOLLOW UP 01/22/2019 Patient Education: estradiol- [employer] Coupon [id number] [email or web address]/[email or web address] Completed 01/22/2019 Appointment: María Elena Appiah WPtel: [address] [place] [address] [place] CANCELED 01/20/2019 Appointment: María Elena Appiah WPtel: [address] [place] [address] [place] LM NO SHOW 01/06/2019 Appointment: María Elena Appiah WPtel: [address] [place] [address] [place] CANCELED 10/17/2018 Appointment: María Elena Appiah WPtel: [address] [place] [address] [place] BP CHECK 10/09/2018 Visit Diagnosis Plan: [...] 09/30/2018 Appointment: María Elena Appiah WPtel: [address] [place], [place] [phone] [place] FOLLOW UP 09/30/2018 Visit Diagnosis Plan: [...] F51.01 08/27/2018 Appointment: María Elena Appiah WPtel: [address] [place], [place] [phone] ACUTE ILLNESS 08/27/2018 Appointment: María Elena Appiah WPtel: [address] [place], [place] [phone] [place] Patient stated she went out to [...] Tyle... 08/09/2018 Appointment: María Elena Appiah WPtel: [address] [place], [place] [phone] ACUTE ILLNESS 08/09/2018 Appointment: María Elena Appiah WPtel: [address] [place], [place] [phone] [place] NO SHOW 08/08/2018 Visit Diagnosis Plan: [...] B35.4 07/22/2018 Appointment: María Elena Appiah WPtel: [address] [place] [address] ACUTE ILLNESS 07/22/2018 Appointment: María Elena Appiah WPtel: [address] [place] [address] [place] INJECTION 06/19/2018 Patient Education: Patient Medication [...] ICD-10 : L03.031 06/17/2018 Appointment: Kathleen Zuniga [address] [place] [address] ACUTE ILLNESS 06/17/2018 Patient Education: Patient Medication [...] : B02.9 05/16/2018 Appointment: Kathleen Zuniga [address] [phone] ACUTE ILLNESS 05/16/2018 Patient Education: Patient Medication [...] : L03.115 03/20/2018 Appointment: Kathleen Zuniga [address] [phone] FOLLOW UP 03/20/2018 Patient Education: Patient Medication [...] : L03.115 03/18/2018 Appointment: Kathleen Zuniga 504 [facility] FOLLOW UP 03/18/2018 Patient Education: Patient Medication [...] : L03.115 03/15/2018 Appointment: Kathleen Zuniga [address] [phone] ACUTE ILLNESS 03/15/2018 Patient Education: Patient Medication [...] ICD-10 : J01.90 02/11/2018 Appointment: Kathleen Zuniga [address] [place] [address] ACUTE ILLNESS 02/11/2018 Patient Education: Patient Medication Summary Completed 02/11/2018 Appointment: María Elena Appiah WPtel: [phone] [id number] INJECTION 02/01/2018 Patient Education: [...] ICD-10 : M51.16 01/30/2018 Appointment: Kathleen Zuniga [address] [place] [address] ACUTE ILLNESS 01/30/2018 Patient Education: Patient Medication [...] E11.65 12/18/2017 Appointment: María Elena Appiah WPtel: [address] [place], [place] [phone] Annual Well Visit 12/18/2017 Patient Education: Patient Medication Summary Completed 12/18/2017 Care Plan: Referral Order SNOMED-CT : [id number] Pending 12/18/2017 Appointment: María Elena Appiah WPtel: [facility] [place] INJECTION 12/10/2017 Patient Education: Patient [...] : L03.031 12/07/2017 Appointment: [facility] [facility] 12/07/2017 Patient Education: Patient [...] : J01.00 10/08/2017 Appointment: Kathleen Zuniga 504 [facility] ACUTE ILLNESS 10/08/2017 Patient Education: Patient Medication Summary Completed 10/08/2017 Appointment: María Elena [facility] [phone] [facility] [facility] 09/21/2017 Patient Education: Patient Medication [...] : R06.83 09/20/2017 Appointment: Kathleen Zuniga [address] [facility] ACUTE ILLNESS 09/20/2017 Patient Education: Patient [...] ICD-10 : L60.0 08/29/2017 Appointment: Kathleen Zuniga [address] [place], [place] [phone] OFFICE SURGERY 08/29/2017 Patient Education: Patient Medication Summary Completed 08/29/2017 Visit Diagnosis Plan: Actinic keratosis Discussion: Cr yotherapy as above ICD-9 : 702.0 ICD-10 : L57.0 08/01/2017 Appointment: María Elena Appiah WPtel: [phone] [facility] OFFICE SURGERY 08/01/2017 Patient Education: Patient Medication Summary Completed 08/01/2017 Appointment: María Elena Appiah WPtel: [address] [facility] [place] PATIENT THOUGHT APPOINTMENT WAS TOMORROW 07/26/17 CALLED 15 MINUTES BEFORE APPT TO SAY SHE DIDN'T HAVE ANYONE TO COVER HER BUSINESS AND WOULD NOT MAKE IT NO SHOW 07/25/2017 Visit Diagnosis Plan: Cellulitis of left toe Discussio n: Clindamycin and notify if worsening or persistis ICD-9 : 681.10 ICD-10 : L03.032 07/19/2017 Appointment: María Elena Appiahtel: [address] [place], [place] [phone] MEDICATION REVIEW 07/19/2017 Patient Education: Patient Medication Summary Completed 07/19/2017 Appointment: María Elena Appiahtel: [address] [place] [address] [place] CANCELED 07/04/2017 Visit Diagnosis Plan: Generalized hyperhidrosis Discus ian: CBC, CMP, TSH, free T4 ordered to assess. will review labs. ICD-9 : 780.8 ICD-10 : R61 06/27/2017 Visit Diagnosis Plan: Chronic sinusitis, unspecified D iscussion: Referral sent to dr. albarado in [place] per patient request. patient has been treated multiple times for sinus infections with no recovery. patient was seen by dr sanchez in the past with no interventions. patient has deviated septum which may be affecting her sinuses. 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, including hip Discussion: Shave removal of above lesio n--sent to pathology ICD-9 : 216.7 ICD-10 : D23.72 01/24/2017 Appointment: María Elena Appiah WPtel: [address] [place], [place] [phone] 01/23 confirmed ~sl OFFICE SURGERY 01/24/2017 Patient Education: Patient Medication Summary Completed 01/24/2017 Appointment: Loan Sánchez [address] [place], [place] [phone] 01/09 rescheduled~sl RESCHEDULED 01/15/2017 [...] 12/13/2016 Appointment: María Elena Appiah WPtel: [address] [place] [id number] 12/12 confirmed ~sl MEDICATION REVIEW 12/13/2016 Patient Education: Patient Medication Summary Completed 12/13/2016 Appointment: María Elena Appiah WPtel: [address] [place], [place] [phone] [place] rescheduled for 12/13/16 at 11am RESCHEDULED 0 12/06/2016 Appointment: María Elena Appiah WPtel: [address] [place], [place] [phone] [place] CANCELED 11/23/2016 Patient Education: Patient Medication [...] 11/01/2016 Appointment: María Elena [facility] [phone] [facility] [place] 10/31 lm `sl 11/01 lm`sl MEDICATION REVIEW 017 Patient Education: Patient Medication Summary Completed 11/01/2016 Referral: Canelo Overton WPtel: [address] [id number] [place] Referral Initiated 10/30/2016 Visit Diagnosis Plan: [...] 10/17/2016 Appointment: María Elena [facility] [phone] [facility] [place] 10/16 confirmed ~sl PAP 10/17/2016 Patient Education: Patient Medication Summary Completed 10/17/2016 Care Plan: MAMMOGRAM SCREENING LOINC : 2 6347-5 Pending 10/17/2016 Visit Diagnosis Plan: Other seasonal allergic rhinitis Discussion: Decadron/Garamycin Nasal Mangum Mix Too soon for steroid Retry zyrtec 10mg daily ICD-9 : 477.9 ICD-10 : J30.2 10/10/2016 Appointment: María Elena Appiah WPtel: [address] [place], [place] [phone] FOLLOW UP 10/10/2016 Patient Education: Patient Medication Summary Completed 10/10/2016 Appointment: María Elena Appiah WPtel: [address] [place] [phone] 10/02 reschedule `sl RESCHEDULED 10/02/2016 Visit Plan: See surgery for removal of n ew left arm lesion and right foot lesion Lyrica to use next month for left arm paresthesias Continue current meds Discussed sunscreen/sunblock combo 09/19/2016 Appointment: María Elena Appiah WPtel: [address] [place], [place] [phone] 09/18 confirmed ~ FOLLOW UP 09/19/2016 Patient Education: Patient Medication Summary Completed 09/19/2016 Patient Education: Patient Medication Summary Completed 09/18/2016 Care Plan: MAMMOGRAM BOTH BREASTS LOINC : 24076-9 Pending 09/18/2016 Visit Plan: Discussed that needs [...] sinuses 08/24/2016 Appointment: María Elena Appiah WPtel: [address] [place], [place] [phone] ACUTE ILLNESS 08/24/2016 Patient Education: Patient Medication Summary Completed 08/24/2016 Patient Education: Patient Medication Summary Completed 08/23/2016 Care Plan: MAMMOGRAM SCREENING LOINC : 2 6347-5 Pending 08/23/2016 Visit Plan: Finish doxycycline Add Breo 100/25 1 p BID for 2 weeks If not improving within next 2 days will get CXR 08/16/2016 Appointment: María Elena Appiah WPtel: [address] [place] [address] ACUTE ILLNESS 08/16/2016 Patient Education: Patient Medication Summary Completed 08/16/2016 Visit Plan: Supportive care. Rest, Fluid s, Tylenol/Motrin prn fever or bodyaches. Notify if worsening symptoms. Doxycyline and Prednisone 08/10/2016 Appointment: María Elena Appiah WPtel: [address] [place] [address] 08/09 lm`sl....confirmed-sp FOLLOW UP 09/2015 Patient Education: Patient Medication Summary Completed 08/10/2016 Visit Plan: Saline nasal flushes prn. Ty lenol/Motrin prn headache. Notify if persists/symptoms worsening. Dexamethasone 8mg IM today May use coricedan and mucinex 08/02/2016 Appointment: María Elena Appiah WPtel: [address] [place] [address] ACUTE ILLNESS 08/02/2016 Patient Education: Patient Medication Summary Completed 08/02/2016 Visit Plan: Cryotherapy as above and lef t forearm lesion removal as above with 5-0 punch biopsy and sent to path Return in 10 days for suture removal 08/01/2016 Appointment: María Elena Appiahtel: [address] [place] [address] 07/31 confirmed`~sl OFFICE SURGERY 08/01/2016 Patient Education: Patient Medication Summary Completed 08/01/2016 Visit Plan: Stop clindamycin Check CBC, CMP, ESR now/STAT 07/27/2016 Appointment: María Elena Appiah WPtel: [address] [place] [address] ACUTE ILLNESS 07/27/2016 Patient Education: Patient Medication Summary Completed 07/27/2016 Visit Plan: Update lab and check ABIs to start with Will likely need cardiology evaluation to rule out PVD Clindamycin for 10 days Daily yogurt or probiotic Will return for removal of left arm lesions 07/20/2016 Appointment: María Elena Appiah WPtel: [address] [place] [address] ACUTE ILLNESS 07/20/2016 Patient Education: Patient Medication Summary Completed 07/20/2016 Patient Education: Patient Medication Summary Completed 07/20/2016 Care Plan: MAMMOGRAM BOTH BREASTS LOINC : 11785-8 Pending 07/20/2016 Care Plan: US EXAM CHEST LOINC : 78856-1 Pending 07/20/2016 Visit Plan: Wound culture collected from left great toe Appearance is somewhat staph like Rx as above Wound cleanser and skin care reviewed May need to add oral antibiotic if sores do not heal or continue to reoccur 07/06/2016 Appointment: Loan Sánchez [address] [place] [address] ACUTE ILLNESS 07/06/2016 Patient Education: Patient Medication Summary Completed 07/06/2016 Appointment: María Elena Appiah WPtel: [address] [place] [address] [place] INJECTION 05/25/2016 Patient Education: Patient Medication Summary Completed 05/25/2016 Visit Plan: Saline nasal flushes prn. Ty lenol/Motrin prn headache. Notify if persists/symptoms worsening. Dexamethasone and Rocephin given 04/26/2016 Appointment: María Elena Appiah WPtel: [address] [place] [address] ACUTE ILLNESS 04/26/2016 Patient Education: Patient Medication Summary Completed 04/26/2016 Visit Plan: Check CBC, CMP, TSH, FreeT4, HbA1C, estradiol, lipids in AM 03/02/2016 Appointment: María Elena Appiah WPtel: [address] [place] [address] 03/01 lm~sl ACUTE ILLNESS 03/02/2016 Patient Education: Patient Medication Summary Completed 03/02/2016 Visit Plan: Exam is nearly normal Needs to be taking daily antihistamine Would prefer to use oral steroids instead of shot but patient insist that oral steroids cause horrible headaches for her Will given kenalog IM instead 02/09/2016 Appointment: Loan Sánchez [address] [place] [address] ACUTE ILLNESS 02/09/2016 Patient Education: Patient Medication Summary Completed 02/09/2016 Visit Plan: Culture urine Macrobid DC xa nax Trial of Ativan 1mg q HS 01/24/2016 Appointment: María Elena Appiah WPtel: [address] [place] [address] ACUTE ILLNESS 01/24/2016 Patient Education: Patient Medication Summary Completed 01/24/2016 Visit Plan: No steroid or rocephin injec tion warranted Can have oral prednisone Continue current home regimen Needs to follow up with Dr Sanchez if problems persist 12/23/2015 Appointment: Loan Sánchez [address] [place] [address] ACUTE ILLNESS 12/23/2015 Patient Education: Patient Medication Summary Completed 12/23/2015 Visit Plan: Saline nasal flushes prn. Ty lenol/Motrin prn headache. Notify if persists/symptoms worsening. Kenalog 40mg IM today 12/08/2015 Appointment: María Elena Appiah WPtel: [address] [place] [address] 12/06 confirmed~ ACUTE ILLNESS 12/08/2015 Patient Education: Patient Medication Summary Completed 12/08/2015 Appointment: María Elena Appiah WPtel: [address] [place] [address] ACUTE ILLNESS 11/18/2015 Patient Education: Patient Medication Summary Completed 10/11/2015 Appointment: María Elena Appiah WPtel: [address] [place] [address] [place] INJECTION 10/07/2015 Patient Education: Patient Medication Summary Completed 10/07/2015 Visit Plan: Check renal arterial doppler s and ECHO Change amlodopine to lotrel 5/20mg q HS Will need stress test as well Check CMP, uric acid, ESR 10/06/2015 Appointment: María Elena Appiah WPtel: [address] [place] [address] ACUTE ILLNESS 10/06/2015 Patient Education: Patient Medication Summary Completed 10/06/2015 Patient Education: [facility] - [employer] - Amlodipine Besylate - 18-64 - Dynamic Portal ID Completed 10/06/2015 Appointment: María Elena Appiah WPtel: [address] [place], [place] [phone] [place] FOLLOW UP 09/22/2015 Visit Plan: Cephalexin 500 mg PO bid Mery ly topical Mupirocin to lesions on left lateral neck and face Follow-up in one week. Sooner if symptoms worsen 09/14/2015 Appointment: June Flores WPtel: [address] [place] [address] ACUTE ILLNESS 09/14/2015 Patient Education: Patient Medication Summary Completed 09/14/2015 Visit Plan: Change bystolic to bedtime d osing and amlodopine to morning dosing Cryotherapy as above to AKs 09/07/2015 Appointment: María Elena Appiah WPtel: [address] [place] [address] 09/06 appointment made and confirmed ~ FOLLOW UP 09/07/2015 Patient Education: Patient Medication Summary Completed 09/07/2015 Visit Plan: Increase bystolic back to 20 mg daily but will split and take 10mg in AM and 10mg in PM Stress Reducers 08/18/2015 Appointment: María Elena Appiah WPtel: [address] [place], [place] [id number] 08/17/15 appt confirmed cn ACUTE ILLNESS 08/18 Patient Education: Patient Medication Summary Completed 08/18/2015 Appointment: María Elena Appiah WPtel: [address] [place], [place] [id number] BP CHECK 07/07/2015 Patient Education: Patient Medication Summary Completed 07/07/2015 Appointment: María Elena Appiah WPtel: [address] [place] [address] BP CHECK 06/24/2015 Patient Education: Patient Medication Summary Completed 06/24/2015 Appointment: María Elena Appiah WPtel: [address] [place] [address] BP CHECK 06/21/2015 Patient Education: Patient Medication Summary Completed 06/21/2015 Visit Plan: Lab discussed Continue curre nt meds and lifestyle modification Recheck lab in 6mos 06/16/2015 Appointment: María Elena Appiahtel: [address] [place] [address] 06/15 confirmed FOLLOW UP 06/16/2015 Patient Education: Patient Medication Summary Completed 06/16/2015 Patient Education: Patient Medication Summary Completed 06/15/2015 Visit Plan: Increase cymbalta to 60mg q HS Keep clonidine at current dose Recheck 2weeks Change xanax to klonopin 06/02/2015 Appointment: María Elena Appiah WPtel: [address] [place] [address] 06/02 lm FOLLOW UP 06/02/2015 Patient Education: Patient Medication Summary Completed 06/02/2015 Appointment: María Elena Apipah WPtel: [address] [place] [address] ACUTE ILLNESS 05/24/2015 Visit Plan: Increase clonidine to 0.2mg q HS Add cymbalta 30mg q HS Recheck 2weeks Stress Reducers Check fasting lab Discussed sleep study 05/20/2015 Appointment: María Elena Appiah WPtel: [address] [place] [address] ACUTE ILLNESS 05/20/2015 Patient Education: Patient Medication Summary Completed 05/20/2015 Patient Education: [facility] - [employer]aving [employer] - Cymbalta - 18-64 - Dynamic Portal ID Completed 05/20/2015 Appointment: María Elena Appiah WPtel: [address] [place] [address] BP CHECK 05/19/2015 Patient Education: Patient Medication Summary Completed 05/19/2015 Visit Plan: Topical Bactroban alternatin g with topical betamethasone Recheck 2weeks 05/10/2015 Appointment: María Elena Appiah WPtel: [address] [place] [address] 05/07 vm cn...05/07 appt confirmed OFFICE SURGER Y 05/10/2015 Patient Education: Patient Medication Summary Completed 05/10/2015 Referral: Patrick Chandler WPtel: [address] [id number] [place] Referral Initiated 05/04/2015 Visit Plan: Saline nasal flushes prn. Ty lenol/Motrin prn headache. Notify if persists/symptoms worsening. Depomedrol 40mg IM today 03/16/2015 Appointment: María Elena Appiah WPtel: [address] [place] [address] ACUTE ILLNESS 03/16/2015 Patient Education: Patient Medication Summary Completed 03/16/2015 Appointment: María Elena Appiah WPtel: [address] [place] [address] ER Follow UP 03/09/2015 Visit Plan: Cryotherapy to lesions as ab ove 10/27/2014 Appointment: María Elena Appiah WPtel: [address] [place] [address] OFFICE SURGERY 10/27/2014 Patient Education: Patient Medication Summary Completed 10/27/2014 Appointment: June Flores WPtel: [address] [place], [place] [id number] ACUTE ILLNESS 09/11/2014 Patient Education: Patient Medication Summary Completed 09/11/2014 Visit Plan: Lab discussed Lipitor 10mg d aily Coenzyme Q-10 400mg daily Vitamin D3 5000u daily Recheck lipids with LFTs in 3mos then fwup 08/31/2014 Appointment: María Elena Appiah WPtel: [address] [place] [address] 08/28 voicemail FOLLOW UP 08/31/2014 Patient Education: Patient Medication Summary Completed 08/31/2014 Appointment: María Elena Appiah WPtel: [address] [place] [address] LAB 08/27/2014 Appointment: María Elena Appiah WPtel: [address] [place], [place] [id number] LAB 08/27/2014 Patient Education: Patient Medication Summary Completed 08/27/2014 Appointment: María Elena Appiah WPtel: [address] [place] [address] ACUTE ILLNESS 07/23/2014 Appointment: María Elena Appiah WPtel: [address] [place] [address] ACUTE ILLNESS 07/21/2014 Patient Education: Patient Medication Summary Completed 07/21/2014 Visit Plan: Kenalog 40mg IM today Contin ue narendra and singulair Add Flonase 07/15/2014 Appointment: María Elena Appiahtel: [address] [place] [address] ACUTE ILLNESS 07/15/2014 Appointment: María Elena Appiah WPtel: [address] [place] [address] ACUTE ILLNESS 07/15/2014 Patient Education: Patient Medication Summary Completed 07/15/2014 Visit Plan: Will do metolazone 2.5mg prn with 6 potassium and see if causes as severe cramping Trial of of seroquel XR 50mg q PM with evening meal and let us know how works 05/18/2014 Appointment: María Elena Appiah WPtel: [address] [place] [address] 05/15 left message FOLLOW UP 05/18/2014 Patient Education: Patient Medication Summary Completed 05/18/2014 Appointment: María Elena Appiahtel: [address] [place], [place] [id number] LAB 05/14/2014 Patient Education: Patient Medication Summary Completed 05/14/2014 Appointment: María Elena Appiah WPtel: [address] [place], [place] [phone] [place] INJECTION 04/22/2014 Visit Plan: Tisha and Miranda today a nd finish abx given from urgent care 04/21/2014 Appointment: María Elena Appiah WPtel: [address] [place] [address] [place] INJECTION 04/21/2014 Patient Education: Patient Medication Summary Completed 04/21/2014 Appointment: June Flores WPtel: [address] [place] [address] ACUTE ILLNESS 03/04/2014 Patient Education: Patient Medication Summary Completed 03/04/2014 Appointment: María Elena Appiah WPtel: [address] [place] [address] INJECTION 02/27/2014 Patient Education: Patient Medication Summary Completed 02/27/2014 Visit Plan: Cryotherapy as above to all lesions Patient wants to try no meds for insomnia for a while and see how goes 01/13/2014 Appointment: María Elena Appiah WPtel: [address] [place] [address] OFFICE SURGERY 01/13/2014 Patient Education: Patient Medication Summary Completed 01/13/2014 Visit Plan: Stop Melatonin Stop Soma Tri al of trazadone 75mg q HS See ENT for possible tubes as has had chronic ETD and serous otitis media with numerous steroids 12/24/2013 Appointment: María Elena Appiah WPtel: [address] [place] [address] ACUTE ILLNESS 12/24/2013 Patient Education: Patient Medication Summary Completed 12/24/2013 Visit Plan: Saline nasal flushes prn. Ty lenol/Motrin prn headache. Notify if persists/symptoms worsening. 11/12/2013 Appointment: María Elena Appiah WPtel: [address] [place] [address] ACUTE ILLNESS 11/12/2013 Patient Education: Patient Medication Summary Completed 11/12/2013 Appointment: María Elena Appiah WPtel: [address] [place], [place] [phone] ACUTE ILLNESS 10/21/2013 Patient Education: Patient Medication Summary Completed 10/21/2013 Visit Plan: Sleep hygiene and sleep rout ine Melatonin 10mg q HS Support stockings and observe 09/22/2013 Appointment: María Elena Appiah WPtel: [address] [place] [address] ACUTE ILLNESS 09/22/2013 Patient Education: Patient Medication Summary Completed 09/22/2013 Appointment: June Flores WPtel: [address] [place] [address] ACUTE ILLNESS 08/27/2013 Patient Education: Patient Medication Summary Completed 08/27/2013 Visit Plan: Proceed with CT scan of head /neck Proceed with occipital nerve injections Butrans 20mcg patch weekly until can get into see Dr. Mcdonough for injections 08/04/2013 Appointment: María Elena Appiah WPtel: [address] [place] [address] FOLLOW UP 08/04/2013 Patient Education: Patient Medication Summary Completed 08/04/2013 Visit Plan: OMT done Daily neck stretche s, moist heat Increase Celebrex to 200mg BID Add flexeril 07/23/2013 Appointment: María Elena Appiah WPtel: [address] [place], [place] [id number] 07/22 voicemail FOLLOW UP 07/23/2013 Patient Education: Patient Medication Summary Completed 07/23/2013 Appointment: María Elena Appiah WPtel: [address] [place] [address] ACUTE ILLNESS 06/23/2013 Patient Education: Patient Medication Summary Completed 06/23/2013 Appointment: María Elena Appiah WPtel: [address] [place] [address] ACUTE ILLNESS 05/26/2013 Patient Education: Patient Medication Summary Completed 05/26/2013 Visit Plan: Decrease clonidine to 0.1mg TID If BP remains stable consider decreasing amlodopine Prednisone for 5 days BP check in 1mo 04/16/2013 Appointment: María Elena Appiah WPtel: [address] [place] [address] 04/14 pt called and confirmed appt FOLLOW UP 04/16/2013 Patient Education: Patient Medication Summary Completed 04/16/2013 Appointment: María Elena Appiah WPtel: [address] [place] [address] ACUTE ILLNESS 03/05/2013 Patient Education: Patient Medication Summary Completed 03/05/2013 Visit Plan: Pt has MARIA ELENA on with Dr. Mcdonough Continue Butrans patch Refill Hydrocodone early tomorrow 12/23/2012 Appointment: María Elena Appiah WPtel: [address] [place] [address] FOLLOW UP 12/23/2012 Patient Education: Patient Medication Summary Completed 12/23/2012 Appointment: Lashawn Eckert WPtel: [address] [place] [address] ACUTE ILLNESS 12/16/2012 Patient Education: Patient Medication Summary Completed 12/16/2012 Visit Plan: Proceed with updated MRI of LS spine Continue gabapentin and add soma and diclofenac Will likely need to go for another epidural 12/09/2012 Appointment: María Elena Appiah WPtel: [address] [place] [address] ACUTE ILLNESS 12/09/2012 Patient Education: Patient Medication Summary Completed 12/09/2012 Visit Plan: Injection as above Finish me drol dose pack Chiropracter this afternoon 12/04/2012 Appointment: María Elena Appiah WPtel: [address] [place] [address] ACUTE ILLNESS 12/04/2012 Patient Education: Patient Medication Summary Completed 12/04/2012 Appointment: Mary Tillman WPtel: [address] [place] [address] FOLLOW UP 11/22/2012 Patient Education: Patient Medication Summary Completed 11/22/2012 Appointment: María Elena Appiah WPtel: [address] [place] [address] ACUTE ILLNESS 11/21/2012 Patient Education: Patient Medication Summary Completed 11/21/2012 Appointment: María Elena Appiah WPtel: [address] [place] [address] [place] BP CHECK 11/07/2012 Patient Education: Patient [...] BP re-check. 10/29/2012 Appointment: Lashawn Eckert WPtel: [address] [place] [address] ACUTE ILLNESS 10/29/2012 Patient Education: Patient Medication Summary Completed 10/29/2012 Appointment: María Elena Appiah WPtel: [address] [place] [address] ACUTE ILLNESS 10/14/2012 Patient Education: Patient Medication Summary Completed 10/14/2012 Appointment: María Elena Appiah WPtel: [address] [place] [address] UA 09/27/2012 Patient Education: Patient Medication Summary Completed 09/27/2012 Appointment: María Elena Appiah WPtel: [address] [place] [address] ACUTE ILLNESS 09/25/2012 Patient Education: Patient Medication Summary Completed 09/25/2012 Appointment: María Elena Appiah WPtel: [address] [place] [address] BP CHECK 09/24/2012 Appointment: María Elena Appiah WPtel: [address] [place], [place] [id number] ACUTE ILLNESS 08/29/2012 Patient Education: Patient Medication Summary Completed 08/29/2012 Visit Plan: Cryotherapy as above See Karlos m for right ear lesion--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 ACUTE ILLNESS 05/06/2012 Patient Education: Patient Medication Summary Completed 05/06/2012 Visit Plan: Pt wants to hold on any furt her sleep medications 04/03/2012 Appointment: María Elena Appiah WPtel: [address] [place], [place] [phone] FOLLOW UP 04/03/2012 Patient Education: Patient Medication Summary Completed 04/03/2012 Appointment: María Elena Appiah WPtel: [address] [place], [place] [phone] FOLLOW UP 03/19/2012 Patient Education: Patient Medication Summary Completed 03/19/2012 Appointment: María Elena Appiah WPtel: [address] [place], [place] [phone] BP CHECK 02/22/2012 Patient Education: Patient Medication Summary Completed 02/22/2012 Appointment: María Elena Appiah WPtel: [address] [place], [place] [phone] BP CHECK 02/21/2012 Patient Education: Patient Medication Summary Completed 02/21/2012 Visit Plan: Doxycycline and bactroban fo r foot Supportive care on ankles and knees Add norvasc for BP 02/20/2012 Appointment: María Elena Appiah WPtel: [address] [place] [address] ER Follow UP 02/20/2012 Patient Education: Patient Medication Summary Completed 02/20/2012 Appointment: María Elena Appiah WPtel: [address] [place] [address] ACUTE ILLNESS 01/30/2012 Patient Education: Patient Medication Summary Completed 01/30/2012 Appointment: María Elena Appiah WPtel: [address] [place] [address] ACUTE ILLNESS 01/24/2012 Patient Education: Patient Medication Summary Completed 01/24/2012 Visit Plan: Daily back stretches, moist heat, Biofreeze prn OMT done 01/10/2012 Appointment: María Elena Appiah WPtel: [address] [place] [address] ACUTE ILLNESS 01/10/2012 Patient Education: Patient Medication Summary Completed 01/10/2012 Appointment: María Elena Appiah WPtel: [address] [place] [address] FOLLOW UP 12/11/2011 Patient Education: Patient Medication Summary Completed 12/11/2011 Appointment: María Elena Appiah WPtel: [address] [place] [address] ACUTE ILLNESS 11/09/2011 Patient Education: Patient Medication Summary Completed 11/09/2011 Appointment: María Elena Appiah WPtel: [address] [place] [address] ACUTE ILLNESS 09/13/2011 Patient Education: Patient Medication Summary Completed 09/13/2011 Visit Plan: Check CBC, TSH, Free T4, CMP , ESR, Vit D, B12 now Start Prednisone today 08/31/2011 Appointment: María Elena Appiah WPtel: [address] [place] [address] ACUTE ILLNESS 08/31/2011 Patient Education: Patient Medication Summary Completed 08/31/2011 Appointment: María Elena Appiahtel: [address] [place] [address] [place] INJECTION 07/20/2011 Patient Education: Patient Medication Summary Completed 07/20/2011 Visit Plan: Continue current meds Monite r BP Cont stretches from PT 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 07/06/2011 Appointment: María Elena Appiah WPtel: [address] [place] [address] [place] FOLLOW UP 07/06/2011 Patient Education: Patient Medication Summary Completed 07/06/2011 Appointment: María Elena Appiahtel: [address] [place] [address] BP CHECK 06/06/2011 Patient Education: Patient Medication Summary Completed 06/06/2011 Visit Plan: Add Bystolic at 2.5mg QAM Ad d Robaxin 750mg 2 po q HS BP check in 2wks 05/22/2011 Appointment: María Elena Appiahtel: [address] [place] [address] FOLLOW UP 05/22/2011 Patient Education: Patient Medication Summary Completed 05/22/2011 Appointment: María Elena Appiahtel: [address] [place] [address] ER Follow UP 05/09/2011 Patient Education: Patient Medication Summary Completed 05/09/2011 Appointment: María Elena Appiahtel: [address] [place], [place] [phone] [place] FOLLOW UP 02/22/2011 Visit Plan: Rx written for Hydrocodone 1 0/325mg #240 See Ortho 02/14/2011 Appointment: María Elena Appiahtel: [address] [place], [place] [phone] OMT 02/14/2011 Patient Education: [...] lab work. 02/03/2011 Appointment: Lashawn Eckert WPtel: [address] [place] [address] ACUTE ILLNESS 02/03/2011 Patient Education: Patient Medication Summary Completed 02/03/2011 Visit Plan: OMT done Cont daily stretche s 01/31/2011 Appointment: María Elena Appiah WPtel: [address] [place] [address] ACUTE ILLNESS 01/31/2011 Patient Education: Patient Medication Summary Completed 01/31/2011 Visit Plan: Continue pain meds OMT done Proceed with PT No work this summer01/25/2011 Appointment: María Elena Appiah WPtel: [address] [place] [address] ACUTE ILLNESS 01/25/2011 Patient Education: Patient Medication Summary Completed 01/25/2011 Visit Plan: Start PT Long discussion abo ut getting pain meds from only us and can only have max of 4grams of tylenol per day Change to Hydrocodone 10/325mg 1- 2 po TID prn pain--#180 called to Radha 01/18/2011 Appointment: María Elena Appiahtel: [address] [place] [address] FOLLOW UP 01/18/2011 Patient Education: Patient Medication Summary Completed 01/18/2011 Visit Plan: Daily back stretches, moist heat, Biofreeze prn 11/29/2010 Appointment: María Elena Appiah: [address] [place] [address] ER Follow UP 11/29/2010 Patient Education: Patient Medication Summary Completed 11/29/2010 Visit Plan: Saline nasal flushes prn. Ty lenol/Motrin prn headache. Notify if persists/symptoms worsening. Finish augmentin Add Medrol Dose Pack 10/10/2010 Appointment: María Elena Appiah WPtel: [address] [place] [address] ACUTE ILLNESS 10/10/2010 Patient Education: Patient Medication Summary Completed 10/10/2010 Visit Plan: Cryotherapy x3 to multiple l esions on both forearms 07/19/2010 Appointment: María Elena Appiah WPtel: [address] [place] [address] OFFICE SURGERY 07/19/2010 Patient Education: Patient Medication Summary Completed 07/19/2010 Appointment: María Elena Appiahtel: [address] [place] [address] BP CHECK 07/06/2010 Patient Education: Patient Medication Summary Completed 07/06/2010 Appointment: María Elena Appiahtel: [address] [place] [address] BP CHECK 06/30/2010 Patient Education: Patient Medication Summary Completed 06/30/2010 Appointment: María Elena Appiah WPtel: [address] [place] [address] BP CHECK 06/20/2010 Patient Education: Patient Medication Summary Completed 06/20/2010 Visit Plan: Change Diovan to Exforge 160 /5mg QD OMT done to thoracics BP check in 2wks 06/07/2010 Appointment: María Elena Appiah WPtel: [address] [place] [address] [place] FOLLOW UP 06/07/2010 Patient Education: Patient Medication Summary Completed 06/07/2010 Appointment: María Elena Appiah WPtel: [address] [place] [address] BP CHECK 06/03/2010 Patient Education: Patient Medication Summary Completed 06/03/2010 Appointment: María Elena Appiah WPtel: [address] [place] [address] BP CHECK 06/01/2010 Patient Education: Patient Medication Summary Completed 06/01/2010 Visit Plan: Irritated skin tags to left neck x2 excised at base with scissors and base cauterized 05/30/2010 Appointment: María Elena Appiah WPtel: [address] [place] [address] OFFICE SURGERY 05/30/2010 Patient Education: Patient Medication Summary Completed 05/30/2010 Visit Plan: Saline nasal flushes prn. Ty lenol/Motrin prn headache. Notify if persists/symptoms worsening. Restart Nasonex Has allergy testing set for May 25 04/27/2010 Appointment: María Elena Appiah WPtel: [address] [place] [address] ACUTE ILLNESS 04/27/2010 Patient Education: Patient Medication Summary Completed 04/27/2010 Visit Plan: Saline nasal flushes prn. Ty lenol/Motrin prn headache. Notify if persists/symptoms worsening. Omnaris BID plus injections 04/05/2010 Appointment: María Elena Appiah WPtel: [address] [place] [address] ACUTE ILLNESS 04/05/2010 Patient Education: Patient Medication Summary Completed 04/05/2010 Visit Plan: Saline nasal flushes prn. Ty lenol/Motrin prn headache. Notify if persists/symptoms worsening. 03/09/2010 Appointment: María Elena Appiah WPtel: [address] [place] [address] ACUTE ILLNESS 03/09/2010 Patient Education: Patient Medication Summary Completed 03/09/2010 Visit Plan: Cont Clonidine as is Cont Pr emarin Fwup with surgery as scheduled 03/03/2010 Appointment: María Elena Appiah WPtel: [address] [place], [place] [phone] FOLLOW UP 03/03/2010 Patient Education: Patient Medication Summary Completed 03/03/2010 Visit Plan: Check Pelvic US now Discusse tacho Sal C vs Hysterectomy 01/17/2010 Appointment: María Elena Appiah WPtel: [address] [place], [place] [phone] ACUTE ILLNESS 01/17/2010 Patient Education: Patient Medication Summary Completed 01/17/2010 Visit Plan: Check fasting lab and schedu le Mammogram 2gm Na Diet Trial of Ambien 10mg qhs Fwup pending lab results 12/27/2009 Appointment: María Elena Appiah WPtel: [address] [place], [place] [phone] ESTABLISHED PATIENT 12/27/2009 Patient Education: Patient Medication Summary Completed 12/27/2009 Referral: Canelo Overton WPtel: [address] [id number] [place] Referral Initiated Referral: Philipp Flores WPtel: [address] [id number] [place] Referral Appointment Requested Instructions Comment . [...]
--- OUTSIDE RECORDS SUMMARY | 2020-03-13 06:56 | XMS REPORT | CCD ---
Author Author Gale Appiah D.O. Organization [facility] Address [address] [place] [id number] Phone Care Team Providers Care Valet Parker Name Role Phone María Elena Appiah D.O., PP Unavailable CCM Unavailable Summary Purpose Interface Exchange Family History Family History data not found Social History Social History Element Codes Description Effective Dates Tobacco history SNOMED CT: 048655722 Never smoker 05/22/2011 Allergies, Adverse Reactions, Alerts [...] Start Date Stop Date Status Fill Instructions baclofen 10 mg tablet RxNorm: 591659 TAKE ONE TABLET BY MOUTH THREE TIMES A DAY NEEDED 09/19/2019 No Stop Date Active duloxetine 60 mg capsule,delayed release RxNorm: 707774 TAKE ONE CAPSULE BY MOUTH DAILY 09/11/2019 No Stop Date Active Lipitor 10 mg tablet RxNorm: 887573 TAKE ONE TABLET BY MOUTH AT BEDTIME 09/11/2019 No Stop Date Active lisinopril 20 mg tablet RxNorm: 430135 TAKE ONE TABLET BY MOUTH DAILY .... THIS REPLACE 10MG TABLETS 09/11/2019 No Stop Date Active triamterene 75 mg-hydrochlorothiazide 50 mg tablet RxNorm: 3 74756 TAKE ONE TABLET BY MOUTH DAILY 09/11/2019 No Stop Date Active allopurinol 300 mg tablet RxNorm: 147303 TAKE ONE TABLET BY LOPEZ TH DAILY 09/11/2019 No Stop Date Active celecoxib 200 mg capsule RxNorm: 741319 TAKE ONE CAPSUL E BY MOUTH TWICE A DAY NEEDED FOR PAIN 09/11/2019 No Stop Date Active clonidine HCl 0.1 mg tablet RxNorm: 142112 TAKE ONE TAB LET BY MOUTH FOUR TIMES A DAY 09/11/2019 No Stop Date Active doxepin 25 mg capsule RxNorm: 2739615 1 Capsule(s) Oral every night at bedtime as needed for sleep 08/21/2019 11/18/2019 Active hydrocodone 10 mg-acetaminophen 325 mg tablet RxNorm: 211022 1-2 Tablet(s) PO TID 08/12/2019 No Stop Date Active as needed for pa in - Previous quantity #240, will start dosing for #180 in April 2011 per Doctor Td. Medrol (Dustin) 4 mg tablets in a dose pack RxNorm: 984104 Tablet(s) Oral As Directed 07/21/2019 No Stop Date Active Premarin 1.25 mg tablet RxNorm: 257611 1 Tablet(s) Oral QD 07/02/20 19 03/28/2020 Active hydrocodone 10 mg-acetaminophen 325 mg tablet RxNorm: 078586 1-2 Tablet(s) PO TID 07/01/2019 08/11/2019 Inactive as needed for pa in - Previous quantity #240, will start dosing for #180 in April 2011 per Doctor Td. gabapentin 300 mg capsule RxNorm: 315833 1 Capsule(s) PO QHS 201809/24/2019 Active celecoxib 200 mg capsule RxNorm: 463195 1 Capsule(s) Or al two times a day as needed for pain 06/27/2019 06/27/2019 Inactive Singulair 10 mg tablet RxNorm: 610337 TAKE ONE TABLET BY MOUTH JOSÉ Y 06/24/2019 No Stop Date Active furosemide 40 mg tablet RxNorm: 284745 TAKE ONE TABLET BY MOUTH EVERY MORNING NEEDED FOR EDEMA . TAKE WITH POTASSIUM 06/24/2019 No Stop Date Active doxepin 25 mg capsule RxNorm: 4992470 TAKE ONE CAPSULE B Y MOUTH EVERY NIGHT AT BEDTIME NEEDED FOR SLEEP 06/24/2019 08/20/2019 Inactive lisinopril 20 mg tablet RxNorm: 549542 TAKE ONE TABLET BY MOUTH DAILY .... THIS REPLACE 10MG TABLETS 06/24/2019 09/10/2019 Inactive nystatin-triamcinolone 100,000 unit/g-0.1 % topical cream Rx Norm: 9822856 1 Application Topical two times a day 06/12/2019 06/19/2019 Inactive apply BID for 1 week nystatin-triamcinolone 100,000 unit/g-0.1 % topical cream Rx Norm: 5384954 1 Application Topical two times a day 06/12/2019 06/11/2019 Inactive apply BID for 1 week hydrocodone 10 mg-acetaminophen 325 mg tablet RxNorm: 195518 1-2 Tablet(s) PO QID as needed for pain MUST LAST 30 DAYS 05/28/2019 06/26/2019 Inactiv e (Response to an electronic controlled substance refill request - RxReferenceNumber: [id number]) baclofen 20 mg tablet RxNorm: 958476 1 Tablet(s) PO TID as needed for muscle spasm 05/19/2019 05/27/2019 Inactive gabapentin 300 mg capsule RxNorm: 928636 1 Capsule(s) PO QHS 201805/27/2019 Inactive lisinopril 20 mg tablet RxNorm: 474088 1 Tablet(s) PO Q D TAKE ONE TABLET BY MOUTH DAILY, REPLACES 10 MG DOSE 05/19/2019 06/23/2019 Inactive doxepin 25 mg capsule RxNorm: 9662538 TAKE ONE CAPSULE B Y MOUTH EVERY NIGHT AT BEDTIME NEEDED FOR SLEEP 05/16/2019 06/14/2019 Inactive lisinopril 20 mg tablet RxNorm: 189270 TAKE ONE TABLET BY MOUTH DAILY, REPLACES 10 MG DOSE 05/16/2019 05/18/2019 Inactive Singulair 10 mg tablet RxNorm: 529406 TAKE ONE TABLET BY MOUTH JOSÉ Y 05/16/2019 06/14/2019 Inactive gabapentin 300 mg capsule RxNorm: 859957 1 Capsule(s) PO QHS 201805/04/2019 Inactive estropipate 1.5 mg tablet RxNorm: 218832 1 Tablet(s) PO QD 05/05/2005/27/2019 Inactive estropipate 1.5 mg tablet RxNorm: 481710 1 Tablet(s) PO QD 05/05/20 19 05/04/2019 Inactive gabapentin 300 mg capsule RxNorm: 563603 1 Capsule(s) PO QHS 201805/18/2019 Inactive hydrocodone 10 mg-acetaminophen 325 mg tablet RxNorm: 721486 1-2 Tablet(s) PO QID as needed for pain MUST LAST 30 DAYS 04/25/2019 05/24/2019 Inactiv e (Response to an electronic controlled substance refill request - RxReferenceNumber: [id number]) metoprolol tartrate 100 mg tablet RxNorm: 938827 TAKE O NE TABLET BY MOUTH TWICE A DAY 04/24/2019 06/22/2019 Inactive cyclobenzaprine 10 mg tablet RxNorm: 417162 TAKE ONE TA BLET BY MOUTH THREE TIMES A DAY NEEDED FOR MUSCLE SPASMS 04/24/2019 05/18/2019 Inactive Lyrica 75 mg capsule RxNorm: 859959 1 Capsule(s) PO QHS 03/25/2019 Inactive Klor-Con 8 mEq tablet,extended release RxNorm: 725968 T FARRUKH ONE TABLET BY MOUTH TWICE A DAY 03/21/2019 05/19/2019 Inactive duloxetine 60 mg capsule,delayed release RxNorm: 773998 TAKE ONE CAPSULE BY MOUTH DAILY 03/21/2019 05/19/2019 Inactive triamterene 75 mg-hydrochlorothiazide 50 mg tablet RxNorm: 3 60414 TAKE ONE TABLET BY MOUTH DAILY 03/21/2019 05/19/2019 Inactive Lipitor 10 mg tablet RxNorm: 284958 TAKE ONE TABLET BY MOUTH AT BEDTIME 03/21/2019 09/10/2019 Inactive clonidine HCl 0.1 mg tablet RxNorm: 410382 TAKE ONE TAB LET BY MOUTH FOUR TIMES A DAY 03/21/2019 05/19/2019 Inactive allopurinol 300 mg tablet RxNorm: 092663 TAKE ONE TABLET BY LOPEZ TH DAILY 03/21/2019 05/19/2019 Inactive hydrocodone 10 mg-acetaminophen 325 mg tablet RxNorm: 278377 1-2 Tablet(s) PO QID as needed for pain MUST LAST 30 DAYS 02/28/2019 03/29/2019 Inactiv e (Response to an electronic controlled substance refill request - RxReferenceNumber: [id number]) furosemide 40 mg tablet RxNorm: 528173 TAKE ONE TABLET BY MOUTH EVERY MORNING NEEDED FOR EDEMA . TAKE WITH POTASSIUM 02/21/2019 03/22/2019 Inactive cyclobenzaprine 10 mg tablet RxNorm: 220402 TAKE ONE TA BLET BY MOUTH THREE TIMES A DAY NEEDED FOR MUSCLE SPASMS 02/21/2019 04/21/2019 Inactive lisinopril 20 mg tablet RxNorm: 595421 TAKE ONE TABLET BY MOUTH DAILY, REPLACES 10 MG DOSE 02/21/2019 05/15/2019 Inactive doxepin 25 mg capsule RxNorm: 6499550 TAKE ONE CAPSULE B Y MOUTH EVERY NIGHT AT BEDTIME NEEDED FOR SLEEP 02/21/2019 05/15/2019 Inactive nystatin 100,000 unit/gram topical cream RxNorm: 440230 APPLY TO AFFECTED AREA(S) TWO TIMES A DAY 02/21/2019 03/22/2019 Inactive estradiol 1 mg tablet RxNorm: 398541 2 Tablet(s) PO QD replaces premarin 01/22/2019 05/04/2019 Inactive lisinopril 20 mg tablet RxNorm: 628478 TAKE ONE TABLET BY MOUTH DAILY, REPLACES 10 MG DOSE 01/20/2019 02/18/2019 Inactive cyclobenzaprine 10 mg tablet RxNorm: 035381 TAKE ONE TA BLET BY MOUTH THREE TIMES A DAY NEEDED FOR MUSCLE SPASMS 01/20/2019 02/18/2019 Inactive metoprolol tartrate 100 mg tablet RxNorm: 168592 TAKE O NE TABLET BY MOUTH TWICE A DAY 01/20/2019 02/18/2019 Inactive cyclobenzaprine 10 mg tablet RxNorm: 247957 TAKE ONE TA BLET BY MOUTH THREE TIMES A DAY NEEDED FOR MUSCLE SPASMS 12/19/2018 01/17/2019 Inactive lisinopril 20 mg tablet RxNorm: 060538 TAKE ONE TABLET BY MOUTH DAILY, REPLACES 10 MG DOSE 12/19/2018 01/17/2019 Inactive duloxetine 60 mg capsule,delayed release RxNorm: 276462 TAKE ONE CAPSULE BY MOUTH DAILY 12/19/2018 01/17/2019 Inactive Lipitor 10 mg tablet RxNorm: 591549 TAKE ONE TABLET BY MOUTH AT BEDTIME 12/19/2018 01/17/2019 Inactive cyclobenzaprine 10 mg tablet RxNorm: 081722 1 Tablet(s) PO TID as needed for muscle spasm 11/19/2018 12/18/2018 Inactive Singulair 10 mg tablet RxNorm: 396970 1 Tablet(s) PO QD 11/19/2018 Inactive lisinopril 20 mg tablet RxNorm: 125487 TAKE ONE TABLET BY MOUTH DAILY, REPLACES 10 MG DOSE 11/15/2018 12/18/2018 Inactive hydrocodone 10 mg-acetaminophen 325 mg tablet RxNorm: 178969 1-2 Tablet(s) PO QID as needed for pain MUST LAST 30 DAYS 11/13/2018 12/12/2018 Inactiv e (Response to an electronic controlled substance refill request - RxReferenceNumber: [id number]) nystatin 100,000 unit/gram topical cream RxNorm: 524995 APPLY TO AFFECTED AREA(S) TWO TIMES A DAY 10/23/2018 11/06/2018 Inactive lisinopril 20 mg tablet RxNorm: 683501 1 Tablet(s) PO QD replac es 10mg dose 10/18/2018 11/14/2018 Inactive hydrocodone 10 mg-acetaminophen 325 mg tablet RxNorm: 948005 1-2 Tablet(s) QID as needed for pain MUST LAST 30 DAYS 10/08/2018 11/06/2018 Inactive (Response to an electronic controlled substance refill request - RxReferenceNumber: [id number]) lisinopril 10 mg tablet RxNorm: 632544 1 Tablet(s) PO QD 10/03/2018 0 01/21/2019 Inactive Celebrex 200 mg capsule RxNorm: 250442 TAKE ONE CAPSULE BY MOUT H TWICE A DAY 09/30/2018 05/04/2019 Inactive cyclobenzaprine 10 mg tablet RxNorm: 830512 TAKE ONE TA BLET BY MOUTH THREE TIMES A DAY NEEDED FOR MUSCLE SPASMS 09/30/2018 11/18/2018 Inactive doxepin 25 mg capsule RxNorm: 1430967 TAKE ONE CAPSULE B Y MOUTH EVERY NIGHT AT BEDTIME NEEDED 09/05/2018 10/16/2018 Inactive omeprazole 40 mg capsule,delayed release RxNorm: 691696 TAKE ONE CAPSULE BY MOUTH DAILY 09/05/2018 01/21/2019 Inactive furosemide 40 mg tablet RxNorm: 821173 TAKE ONE TABLET BY MOUTH EVERY MORNING NEEDED FOR EDEMA . TAKE WITH POTASSIUM 09/05/2018 11/03/2018 Inactive phentermine 37.5 mg tablet RxNorm: 176310 1 Tablet(s) PO QAM 201701/21/2019 Inactive doxepin 25 mg capsule RxNorm: 8644224 1 Capsule(s) PO QH S as needed for sleep TAKE ONE CAPSULE BY MOUTH EVERY NIGHT AT BEDTIME NEEDED 08/27/2018 09/04/2018 Inactive Keflex 500 mg capsule RxNorm: 718754 1 Capsule(s) PO TID 08/09/2018 1 10/19/2017 Inactive Diflucan 100 mg tablet RxNorm: 659269 1 Tablet(s) PO QD 08/09/2018 Inactive Premarin 1.25 mg tablet RxNorm: 703089 2 Tablet(s) PO QD 08/09/2018 0 05/04/2019 Inactive Zofran ODT 4 mg disintegrating tablet RxNorm: 894872 1 Tablet(s) PO Q4H as needed for nausea 08/09/2018 01/21/2019 Inactive metoprolol tartrate 100 mg tablet RxNorm: 416247 TAKE O NE TABLET BY MOUTH TWICE A DAY 2018 10/04/2018 Inactive doxepin 25 mg capsule RxNorm: 1738377 TAKE ONE CAPSULE B Y MOUTH EVERY NIGHT AT BEDTIME NEEDED 2018 08/26/2018 Inactive cyclobenzaprine 10 mg tablet RxNorm: 846621 TAKE ONE TA BLET BY MOUTH THREE TIMES A DAY NEEDED FOR MUSCLE SPASMS 2018 09/29/2018 Inactive hydrocodone 10 mg-acetaminophen 325 mg tablet RxNorm: 200574 1-2 Tablet(s) QID as needed for pain MUST LAST 30 DAYS 07/29/2018 08/27/2018 Inactive (Response to an electronic controlled substance refill request - RxReferenceNumber: [id number]) nystatin 100,000 unit/gram topical powder RxNorm: 946823 Applic ation TOP BID 07/22/2018 08/04/2018 Inactive doxepin 25 mg capsule RxNorm: 8771182 1 Capsule(s) PO QHS as needed 07/22/2018 08/05/2018 Inactive triamterene 75 mg-hydrochlorothiazide 50 mg tablet RxNorm: 3 96423 TAKE ONE TABLET BY MOUTH DAILY 07/05/2018 10/02/2018 Inactive duloxetine 60 mg capsule,delayed release RxNorm: 235287 TAKE ONE CAPSULE BY MOUTH DAILY 07/05/2018 09/02/2018 Inactive Klor-Con 8 mEq tablet,extended release RxNorm: 755769 T FARRUKH ONE TABLET BY MOUTH TWICE A DAY 07/05/2018 10/02/2018 Inactive Lipitor 10 mg tablet RxNorm: 647973 TAKE ONE TABLET BY MOUTH AT BEDTIME 07/05/2018 09/02/2018 Inactive allopurinol 300 mg tablet RxNorm: 319702 TAKE ONE TABLET BY LOPEZ TH DAILY 07/05/2018 10/02/2018 Inactive clonidine HCl 0.1 mg tablet RxNorm: 929292 TAKE ONE TAB LET BY MOUTH FOUR TIMES A DAY 07/05/2018 10/02/2018 Inactive hydrocodone 10 mg-acetaminophen 325 mg tablet RxNorm: 918157 1-2 Tablet(s) QID as needed for pain MUST LAST 30 DAYS 06/28/2018 07/27/2018 Inactive (Response to an electronic controlled substance refill request - RxReferenceNumber: [id number]) MediHoney (calcium alginate-honey) 4" X 5" bandage RxNorm: 1 Application TOP QD 06/17/2018 06/26/2018 Inactive honey-hydrocolloid dressing 4" X 5" RxNorm: 1 Application TOP QD 06/17/2018 07/16/2018 Inactive furosemide 40 mg tablet RxNorm: 367624 TAKE ONE TABLET BY MOUTH EVERY MORNING NEEDED FOR EDEMA . TAKE WITH POTASSIUM 06/10/2018 07/09/2018 Inactive This is a refill request. hydrocodone 10 mg-acetaminophen 325 mg tablet RxNorm: 462344 1-2 Tablet(s) QID as needed for pain MUST LAST 30 DAYS 05/30/2018 06/27/2018 Inactive (Response to an electronic controlled substance refill request - RxReferenceNumber: [id number]) acyclovir 800 mg tablet RxNorm: 014314 1 Tablet(s) PO 5x day 201705/22/2018 Inactive Premarin 1.25 mg tablet RxNorm: 144721 1-2 Tablet(s) PO QD 05/15/20 18 07/13/2018 Inactive cyclobenzaprine 10 mg tablet RxNorm: 262694 1 Tablet(s) PO TID as needed for muscle spasm 05/09/2018 05/08/2018 Inactive Medrol (Dustin) 4 mg tablets in a dose pack RxNorm: 808322 Tablet(s) PO As Directed 05/02/2018 06/16/2018 Inactive hydrocodone 10 mg-acetaminophen 325 mg tablet RxNorm: 493499 1-2 Tablet(s) QID as needed for pain MUST LAST 30 DAYS 04/30/2018 05/29/2018 Inactive (Response to an electronic controlled substance refill request - RxReferenceNumber: [id number]) duloxetine 60 mg capsule,delayed release RxNorm: 269693 TAKE ONE CAPSULE BY MOUTH DAILY 04/16/2018 05/15/2018 Inactive Celebrex 200 mg capsule RxNorm: 424902 TAKE ONE CAPSULE BY MOUT H TWICE A DAY 04/16/2018 06/14/2018 Inactive Singulair 10 mg tablet RxNorm: 399192 TAKE ONE TABLET BY MOUTH JOSÉ Y 04/16/2018 11/19/2018 Inactive Lipitor 10 mg tablet RxNorm: 077175 TAKE ONE TABLET BY MOUTH AT BEDTIME 04/16/2018 05/15/2018 Inactive hydrocodone 10 mg-acetaminophen 325 mg tablet RxNorm: 977148 1-2 Tablet(s) QID as needed for pain MUST LAST 30 DAYS 03/29/2018 04/27/2018 Inactive (Response to an electronic controlled substance refill request - RxReferenceNumber: [id number]) cyclobenzaprine 10 mg tablet RxNorm: 356308 1 Tablet(s) PO TID as needed for muscle spasm 03/18/2018 05/09/2018 Inactive omeprazole 40 mg capsule,delayed release RxNorm: 313918 1 Capsu le(s) PO QD 02/26/2018 08/24/2018 Inactive hydrocodone 10 mg-acetaminophen 325 mg tablet RxNorm: 004932 1-2 Tablet(s) QID as needed for pain MUST LAST 30 DAYS 02/26/2018 03/27/2018 Inactive (Response to an electronic controlled substance refill request - RxReferenceNumber: [id number]) metoprolol tartrate 100 mg tablet RxNorm: 024666 1 Tablet(s) PO BID 02/18/2018 08/05/2018 Inactive Lyrica 75 mg capsule RxNorm: 535852 1 Capsule(s) PO QHS 01/30/2018 Inactive phentermine 37.5 mg tablet RxNorm: 090026 1 Tablet(s) PO QAM 201706/16/2018 Inactive hydrocodone 10 mg-acetaminophen 325 mg tablet RxNorm: 621517 1-2 Tablet(s) QID as needed for pain MUST LAST 30 DAYS 01/29/2018 02/25/2018 Inactive (Response to an electronic controlled substance refill request - RxReferenceNumber: [id number]) Klor-Con 8 mEq tablet,extended release RxNorm: 930390 1 Tablet( s) PO BID 01/14/2018 07/04/2018 Inactive allopurinol 300 mg tablet RxNorm: 571568 1 Tablet(s) PO QD 01/15/20 18 07/04/2018 Inactive Lipitor 10 mg tablet RxNorm: 697385 1 Tablet(s) PO QHS 01/14/201812/2017 Inactive triamterene 75 mg-hydrochlorothiazide 50 mg tablet RxNorm: 3 16319 1 Tablet(s) PO QD 01/14/2018 07/04/2018 Inactive hydrocodone 10 mg-acetaminophen 325 mg tablet RxNorm: 157886 1-2 Tablet(s) QID as needed for pain MUST LAST 30 DAYS 12/27/2017 01/25/2018 Inactive (Response to an electronic controlled substance refill request - RxReferenceNumber: [id number]) Onglyza 5 mg tablet RxNorm: 758935 1 Tablet(s) PO QD 12/18/201701/29 Inactive metformin 500 mg tablet RxNorm: 029435 1 Tablet(s) PO BID 12/11/2017 12/10/2017 Inactive metformin 500 mg tablet RxNorm: 968482 1 Tablet(s) PO BID 12/11/2017 12/17/2017 Inactive furosemide 40 mg tablet RxNorm: 449204 1 Tablet(s) PO Q AM prn edema--take with potassium 12/11/2017 06/08/2018 Inactive cyclobenzaprine 10 mg tablet RxNorm: 303013 1 Tablet(s) PO TID as needed for muscle spasm 12/11/2017 03/18/2018 Inactive hydrocodone 10 mg-acetaminophen 325 mg tablet RxNorm: 008263 1-2 Tablet(s) QID as needed for pain MUST LAST 30 DAYS 10/23/2017 11/21/2017 Inactive (Response to an electronic controlled substance refill request - RxReferenceNumber: [id number]) Lipitor 10 mg tablet RxNorm: 947629 1 Tablet(s) PO QHS 10/16/201703/2018 Inactive cyclobenzaprine 10 mg tablet RxNorm: 778233 1 Tablet(s) PO TID as needed for muscle spasm 10/09/2017 12/10/2017 Inactive hydroxyzine HCl 25 mg tablet RxNorm: 172854 1 Tablet(s) PO BID as needed for anxiety 09/20/2017 01/29/2018 Inactive Effexor XR 75 mg capsule,extended release RxNorm: 225762 1 Caps ule(s) PO QD 09/20/2017 01/29/2018 Inactive metoprolol tartrate 100 mg tablet RxNorm: 032301 1 Tablet(s) PO BID 08/20/2017 02/18/2018 Inactive baclofen 20 mg tablet RxNorm: 385466 1 Tablet(s) PO TID as needed for muscle spasm 08/20/2017 01/21/2019 Inactive clonidine HCl 0.1 mg tablet RxNorm: 002922 1 Tablet(s) PO QID 08/2005/16/2018 Inactive Seroquel 25 mg tablet RxNorm: 740298 1 Tablet(s) PO QHS 08/17/2017 Inactive Seroquel 25 mg tablet RxNorm: 192284 1 Tablet(s) PO QHS 08/17/2017 Inactive Diflucan 100 mg tablet RxNorm: 399223 TAKE ONE TABLET BY MOUTH JOSÉ Y 07/25/2017 08/07/2017 Inactive hydrocodone 10 mg-acetaminophen 325 mg tablet RxNorm: 244417 1-2 Tablet(s) QID as needed for pain MUST LAST 30 DAYS 07/19/2017 08/17/2017 Inactive (Response to an electronic controlled substance refill request - RxReferenceNumber: [id number]) clindamycin 300 mg capsule RxNorm: 651446 1 Capsule(s) PO TID 07/1907/28/2017 Inactive clotrimazole-betamethasone 1 %-0.05 % topical cream RxNorm: 696227 Application TOP BID to elbow rash 07/19/2017 06/16/2018 Inactive Singulair 10 mg tablet RxNorm: 103602 Tablet(s) TAKE ONE TABLET BY MOUTH DAILY 07/18/2017 04/13/2018 Inactive triamterene 75 mg-hydrochlorothiazide 50 mg tablet RxNorm: 3 53037 1 Tablet(s) PO QD 07/18/2017 01/14/2018 Inactive Celebrex 200 mg capsule RxNorm: 813274 Capsule(s) TAKE ONE CAPSULE BY MOUTH TWICE A DAY 07/18/2017 10/15/2017 Inactive hydrocodone 10 mg-acetaminophen 325 mg tablet RxNorm: 972849 1-2 Tablet(s) QID as needed for pain MUST LAST 30 DAYS 06/19/2017 07/18/2017 Inactive (Response to an electronic controlled substance refill request - RxReferenceNumber: [id number]) hydrocodone 10 mg-acetaminophen 325 mg tablet RxNorm: 774220 1-2 Tablet(s) QID as needed for pain MUST LAST 30 DAYS 06/19/2017 06/18/2017 Inactive (Response to an electronic controlled substance refill request - RxReferenceNumber: [id number]) baclofen 20 mg tablet RxNorm: 541024 1 Tablet(s) PO TID as needed for muscle spasm 06/18/2017 08/20/2017 Inactive Medrol (Dustin) 4 mg tablets in a dose pack RxNorm: 777598 Tablet(s) PO As Directed 06/05/2017 07/18/2017 Inactive omeprazole 40 mg capsule,delayed release RxNorm: 073970 1 Capsu le(s) PO QD 04/20/2017 10/16/2017 Inactive Premarin 1.25 mg tablet RxNorm: 885853 1-2 Tablet(s) PO QD 04/11/20 17 05/15/2018 Inactive duloxetine 60 mg capsule,delayed release RxNorm: 595612 1 Capsu le(s) PO QD 04/11/2017 09/19/2017 Inactive furosemide 40 mg tablet RxNorm: 339461 1 Tablet(s) PO Q AM prn edema--take with potassium 04/11/2017 12/11/2017 Inactive Klor-Con 8 mEq tablet,extended release RxNorm: 994558 1 Tablet( s) PO BID 04/11/2017 01/14/2018 Inactive Lipitor 10 mg tablet RxNorm: 409423 1 Tablet(s) PO QHS 04/11/201702/2018 Inactive amlodipine 5 mg-benazepril 20 mg capsule RxNorm: 005133 1 Capsu le(s) PO QD 04/11/2017 01/29/2018 Inactive allopurinol 300 mg tablet RxNorm: 800349 1 Tablet(s) PO QD 04/11/20 17 01/14/2018 Inactive clonidine HCl 0.1 mg tablet RxNorm: 678906 1 Tablet(s) PO QID 04/0508/19/2017 Inactive baclofen 20 mg tablet RxNorm: 928227 1 Tablet(s) PO TID as needed for muscle spasm 04/02/2017 06/18/2017 Inactive Premarin 1.25 mg tablet RxNorm: 435580 1-2 Tablet(s) PO QD 03/20/20 17 04/10/2017 Inactive hydrocodone 10 mg-acetaminophen 325 mg tablet RxNorm: 808957 1-2 Tablet(s) QID as needed for pain MUST LAST 30 DAYS 03/14/2017 01/21/2019 Inactive (Response to an electronic controlled substance refill request - RxReferenceNumber: [id number]) metoprolol tartrate 100 mg tablet RxNorm: 693333 1 Tablet(s) PO BID 02/12/2017 08/20/2017 Inactive hydrocodone 10 mg-acetaminophen 325 mg tablet RxNorm: 100085 1-2 Tablet(s) QID as needed for pain MUST LAST 30 DAYS 02/08/2017 03/09/2017 Inactive (Response to an electronic controlled substance refill request - RxReferenceNumber: [id number]) metoprolol tartrate 100 mg tablet RxNorm: 002252 TAKE O NE TABLET BY MOUTH TWICE A DAY 01/11/2017 02/12/2017 Inactive metoprolol tartrate 100 mg tablet RxNorm: 771613 1 Tablet(s) PO BID 12/18/2016 12/17/2016 Inactive metoprolol tartrate 100 mg tablet RxNorm: 473271 1 Tablet(s) PO BID 12/18/2016 01/10/2017 Inactive furosemide 40 mg tablet RxNorm: 919570 1 Tablet(s) PO Q AM prn edema--take with potassium 12/13/2016 02/10/2017 Inactive amitriptyline 100 mg tablet RxNorm: 513324 1 Tablet(s) PO QHS 11/2812/12/2016 Inactive baclofen 20 mg tablet RxNorm: 471111 1 Tablet(s) PO TID as needed for muscle spasm 11/14/2016 04/01/2017 Inactive triamterene 75 mg-hydrochlorothiazide 50 mg tablet RxNorm: 3 59123 1 Tablet(s) PO QD 11/14/2016 11/13/2016 Inactive metolazone 2.5 mg tablet RxNorm: 035582 TAKE ONE TABLET BY MOUTH DAILY NEEDED FOR EDEMA 11/14/2016 12/12/2016 Inactive triamterene 75 mg-hydrochlorothiazide 50 mg tablet RxNorm: 3 38482 1 Tablet(s) PO QD 11/14/2016 07/18/2017 Inactive amitriptyline 50 mg tablet RxNorm: 102478 TAKE ONE TABL ET BY MOUTH AT BEDTIME NEEDED FOR SLEEP 11/14/2016 11/27/2016 Inactive Cymbalta 60 mg capsule,delayed release RxNorm: 364787 1 Capsule (s) PO QHS 11/14/2016 12/12/2016 Inactive clonidine HCl 0.1 mg tablet RxNorm: 783573 1 Tablet(s) PO QID 11/1304/04/2017 Inactive amitriptyline 50 mg tablet RxNorm: 013873 1 Tablet(s) P O QHS as needed for sleep 11/01/2016 11/27/2016 Inactive duloxetine 60 mg capsule,delayed release RxNorm: 725272 TAKE ONE CAPSULE BY MOUTH DAILY 10/20/2016 01/17/2017 Inactive allopurinol 300 mg tablet RxNorm: 201721 TAKE ONE TABLET BY LOPEZ TH DAILY 10/20/2016 01/16/2017 Inactive Lyrica 75 mg capsule RxNorm: 005401 TAKE ONE CAPSULE BY MOUTH EVERY NIGHT AT BEDTIME 10/20/2016 12/10/2016 Inactive Klor-Con 8 mEq tablet,extended release RxNorm: 315149 T FARRUKH ONE TABLET BY MOUTH TWICE A DAY 10/20/2016 01/17/2017 Inactive Celebrex 200 mg capsule RxNorm: 422442 TAKE ONE CAPSULE BY MOUT H TWICE A DAY 10/20/2016 07/18/2017 Inactive Bystolic 10 mg tablet RxNorm: 901599 TAKE ONE TABLET BY MOUTH EVERY NIGHT AT BEDTIME 10/20/2016 12/17/2016 Inactive amlodipine 5 mg-benazepril 20 mg capsule RxNorm: 726911 TAKE ONE CAPSULE BY MOUTH EVERY NIGHT AT BEDTIME -- TO REPLACE AMLODOPINE 10/20/20162016 Inactive Lipitor 10 mg tablet RxNorm: 470688 TAKE ONE TABLET BY MOUTH EVERY NIGHT AT BEDTIME 10/20/2016 01/17/2017 Inactive alprazolam 0.5 mg tablet RxNorm: 059243 3 Tablet(s) PO QHS as needed for sleep/anxiety 09/20/2016 10/31/2016 Inactive Tamiflu 75 mg capsule RxNorm: 299264 1 Capsule(s) PO QD 09/19/2016 Inactive Lyrica 75 mg capsule RxNorm: 377880 1 Capsule(s) PO QHS 09/19/2016 Inactive prednisone 20 mg tablet RxNorm: 995143 1 Tablet(s) PO QD 08/10/2016 1 10/17/2015 Inactive doxycycline hyclate 100 mg capsule RxNorm: 3955218 1 Capsule(s) PO BID 08/10/2016 08/19/2016 Inactive Medrol (Dustin) 4 mg tablets in a dose pack RxNorm: 184741 Tablet(s) PO As Directed 07/31/2016 08/22/2016 Inactive Singulair 10 mg tablet RxNorm: 079936 TAKE ONE TABLET BY MOUTH JOSÉ Y 07/27/2016 07/18/2017 Inactive hydrocodone 10 mg-acetaminophen 325 mg tablet RxNorm: 156558 1-2 Tablet(s) QID as needed for pain MUST LAST 30 DAYS 07/26/2016 08/24/2016 Inactive (Response to an electronic controlled substance refill request - RxReferenceNumber: [id number]) alprazolam 0.5 mg tablet RxNorm: 111347 3 Tablet(s) PO QHS as needed for anxiety or sleep 07/26/2016 09/20/2016 Inactive clindamycin 300 mg capsule RxNorm: 775846 1 Capsule(s) PO TID 07/2007/29/2016 Inactive Diflucan 100 mg tablet RxNorm: 149422 1 Tablet(s) PO QD 07/20/2016 Inactive Levaquin 500 mg tablet RxNorm: 789982 1 Tablet(s) PO QD 07/17/2016 Inactive Levaquin 500 mg tablet RxNorm: 219245 1 Tablet(s) PO QD 07/10/2016 Inactive Levaquin 500 mg tablet RxNorm: 494181 1 Tablet(s) PO QD 07/10/2016 Inactive mupirocin 2 % topical ointment RxNorm: 985940 TOP Apply topically to affected areas twice daily 07/06/2016 09/18/2016 Inactive Singulair 10 mg tablet RxNorm: 748840 TAKE ONE TABLET BY MOUTH JOSÉ Y 06/21/2016 01/21/2019 Inactive alprazolam 0.5 mg tablet RxNorm: 444098 TAKE THREE TABL ETS BY MOUTH AT BEDTIME NEEDED FOR SLEEP OR STRESS 05/22/2016 06/20/2016 Inactive triamterene 75 mg-hydrochlorothiazide 50 mg tablet RxNorm: 3 82094 1 Tablet(s) PO QD 04/26/2016 10/21/2016 Inactive Premarin 1.25 mg tablet RxNorm: 523115 1-2 Tablet(s) PO QD 04/26/20 16 03/20/2017 Inactive Klor-Con 8 mEq tablet,extended release RxNorm: 560826 1 Tablet( s) PO BID 04/26/2016 10/19/2016 Inactive Celebrex 200 mg capsule RxNorm: 489513 1 Capsule(s) PO BID TAKE ONE CAPSULE BY MOUTH EVERY DAY 04/26/2016 10/19/2016 Inactive Lipitor 10 mg tablet RxNorm: 110564 1 Tablet(s) PO QHS 04/26/201605/2017 Inactive allopurinol 300 mg tablet RxNorm: 788574 1 Tablet(s) PO QD TAKE ONE TABLET BY MOUTH EVERY DAY 04/26/2016 10/19/2016 Inactive amlodipine 5 mg-benazepril 20 mg capsule RxNorm: 310464 1 Capsule(s) PO QHS replaces amlodopine 04/26/2016 10/19/2016 Inactive duloxetine 60 mg capsule,delayed release RxNorm: 109549 1 Capsu le(s) PO QD 04/26/2016 10/19/2016 Inactive Bystolic 10 mg tablet RxNorm: 453692 1 Tablet(s) PO QHS 04/26/2016 Inactive Singulair 10 mg tablet RxNorm: 736496 1 Tablet(s) PO QD TAKE ONE TABLET BY MOUTH DAILY 04/26/2016 06/20/2016 Inactive clonidine HCl 0.1 mg tablet RxNorm: 831730 1 Tablet(s) PO QID 04/2610/22/2016 Inactive hydrocodone 10 mg-acetaminophen 325 mg tablet RxNorm: 380034 1-2 Tablet(s) QID as needed for pain TAKE ONE TO TWO TABLETS BY MOUTH FOUR TIMES A DAY . MUST LAST 30 DAYS 03/31/2016 04/29/2016 Inactive (Response to an electronic controlled substance refill request - RxReferenceNumber: [id number]) Klor-Con 8 mEq tablet,extended release RxNorm: 928541 T FARRUKH ONE TABLET BY MOUTH TWICE A DAY 03/24/2016 04/22/2016 Inactive prednisone 20 mg tablet RxNorm: 212333 1 Tablet(s) PO QD 03/09/2016 0 03/08/2016 Inactive prednisone 20 mg tablet RxNorm: 945765 1 Tablet(s) PO QD 03/09/2016 0 03/13/2016 Inactive alprazolam 0.5 mg tablet RxNorm: 122626 3 Tablet(s) PO QHS as needed for sleep/stress 03/02/2016 01/21/2019 Inactive mupirocin 2 % topical ointment RxNorm: 579746 TOP twice daily to affected areas of face and neck 02/21/2016 04/25/2016 Inactive clonidine HCl 0.1 mg tablet RxNorm: 276534 TAKE ONE TAB LET BY MOUTH FOUR TIMES A DAY 02/15/2016 03/15/2016 Inactive clonidine HCl 0.1 mg tablet RxNorm: 995563 1 Tablet(s) PO QID 02/1404/25/2016 Inactive Premarin 1.25 mg tablet RxNorm: 104677 1-2 Tablet(s) PO QD 02/15/20 16 03/15/2016 Inactive Klor-Con 8 mEq tablet,extended release RxNorm: 184875 T FARRUKH ONE TABLET BY MOUTH TWICE A DAY 02/15/2016 03/15/2016 Inactive potassium chloride ER 20 mEq tablet,extended release(part/cr yst) RxNorm: 781992 2 Tablet(s) PO BID 02/15/2016 03/15/2016 Inactive Macrobid 100 mg capsule RxNorm: 401722 1 Capsule(s) PO BID 01/24/20 16 01/30/2016 Inactive prednisone 20 mg tablet RxNorm: 283951 Take 3tabs PO QD x 2 days, then 2 tabs PO QD x 2 days, then 1 tab PO QD x 2 days, then 1/2 tab PO QDy x 2 days 12/23/2015 04/25/2016 Inactive Klor-Con 8 mEq tablet,extended release RxNorm: 453085 T FARRUKH ONE TABLET BY MOUTH TWICE A DAY 12/20/2015 02/14/2016 Inactive alprazolam 1 mg tablet RxNorm: 499612 1 1/2 Tablet(s) PO QHS 201501/23/2016 Inactive nystatin 100,000 unit/gram topical cream RxNorm: 106384 APPLY TO AFFECTED AREA(S) TWO TIMES A DAY 11/30/2015 12/14/2015 Inactive Singulair 10 mg tablet RxNorm: 168287 TAKE ONE TABLET BY MOUTH JOSÉ Y 11/18/2015 04/25/2016 Inactive allopurinol 300 mg tablet RxNorm: 369915 1 Tablet(s) PO QD TAKE ONE TABLET BY MOUTH EVERY DAY 10/26/2015 04/22/2016 Inactive Singulair 10 mg tablet RxNorm: 043352 TAKE ONE TABLET BY MOUTH JOSÉ Y 10/26/2015 11/17/2015 Inactive duloxetine 60 mg capsule,delayed release RxNorm: 685010 1 Capsu le(s) PO QD 10/26/2015 04/22/2016 Inactive triamterene 75 mg-hydrochlorothiazide 50 mg tablet RxNorm: 3 57792 1 Tablet(s) PO QD 10/26/2015 11/14/2016 Inactive potassium chloride ER 20 mEq tablet,extended release(part/cr yst) RxNorm: 288609 2 Tablet(s) PO BID 10/26/2015 02/14/2016 Inactive Lipitor 10 mg tablet RxNorm: 593714 1 Tablet(s) PO QHS 10/26/2015 Inactive amlodipine 5 mg-benazepril 20 mg capsule RxNorm: 223398 1 Capsule(s) PO QHS replaces amlodopine 10/26/2015 04/22/2016 Inactive Bystolic 10 mg tablet RxNorm: 829405 1 Tablet(s) PO QHS 10/26/2015 Inactive amlodipine 5 mg-benazepril 20 mg capsule RxNorm: 089029 1 Capsule(s) PO QHS replaces amlodopine 10/06/2015 10/25/2015 Inactive amlodipine 5 mg tablet RxNorm: 711862 1 Tablet(s) PO QHS 09/30/2015 0 04/25/2016 Inactive metolazone 2.5 mg tablet RxNorm: 234206 TAKE ONE TABLET BY MOUTH DAILY NEEDED FOR EDEMA 09/30/2015 01/21/2019 Inactive duloxetine 60 mg capsule,delayed release RxNorm: 237008 1 Capsu le(s) PO QD 09/30/2015 10/25/2015 Inactive cephalexin 500 mg capsule RxNorm: 742303 1 Capsule(s) PO BID 201509/23/2015 Inactive mupirocin 2 % topical ointment RxNorm: 962882 TOP twice daily to affected areas of face and neck 09/14/2015 02/20/2016 Inactive baclofen 20 mg tablet RxNorm: 422659 1 Tablet(s) PO TID as needed for muscle spasm 09/01/2015 11/14/2016 Inactive clonidine HCl 0.1 mg tablet RxNorm: 204236 1 Tablet(s) PO QID 09/0102/14/2016 Inactive alprazolam 1 mg tablet RxNorm: 636610 1 1/2 Tablet(s) PO QHS 201409/09/2015 Inactive baclofen 20 mg tablet RxNorm: 073665 1 Tablet(s) PO TID as needed for muscle spasm 07/23/2015 09/01/2015 Inactive omeprazole 40 mg capsule,delayed release RxNorm: 444289 1 Capsu le(s) PO QD 07/23/2015 04/25/2016 Inactive alprazolam 1 mg tablet RxNorm: 864691 1 1/2 Tablet(s) PO QHS 201408/10/2015 Inactive Bystolic 10 mg tablet RxNorm: 814697 1 Tablet(s) PO BID 06/24/2015 Inactive allopurinol 300 mg tablet RxNorm: 888306 1 Tablet(s) PO QD TAKE ONE TABLET BY MOUTH EVERY DAY 06/23/2015 10/20/2015 Inactive alprazolam 1 mg tablet RxNorm: 480046 1 1/2 Tablet(s) PO QHS 201407/06/2015 Inactive clonidine HCl 0.1 mg tablet RxNorm: 946133 1 Tablet(s) PO QID 06/0209/01/2015 Inactive clonidine HCl 0.1 mg tablet RxNorm: 121312 1 Tablet(s) PO QID 06/0206/01/2015 Inactive Cymbalta 60 mg capsule,delayed release RxNorm: 448822 1 Capsule (s) PO QHS 06/02/2015 08/30/2015 Inactive Cymbalta 60 mg capsule,delayed release RxNorm: 973970 1 Capsule (s) PO QHS 06/02/2015 06/01/2015 Inactive clonidine HCl 0.1 mg tablet RxNorm: 135107 1 Tablet(s) PO TID 05/3106/01/2015 Inactive replaces 0.2mg dose metolazone 2.5 mg tablet RxNorm: 652816 TAKE ONE TABLET BY MOUTH DAILY NEEDED FOR EDEMA 05/21/2015 06/19/2015 Inactive Singulair 10 mg tablet RxNorm: 311715 TAKE ONE TABLET BY MOUTH JOSÉ Y 05/21/2015 10/17/2015 Inactive Cymbalta 30 mg capsule,delayed release RxNorm: 813481 1 Capsule (s) PO QHS 05/20/2015 11/14/2016 Inactive betamethasone valerate 0.1 % topical cream RxNorm: 545053 Appli cation TOP BID 05/10/2015 04/25/2016 Inactive Bactroban 2 % topical ointment RxNorm: 045174 Application TOP BID 0 05/10/2015 06/20/2015 Inactive baclofen 20 mg tablet RxNorm: 791026 1 Tablet(s) PO TID as needed 0 04/26/2015 07/23/2015 Inactive Lipitor 10 mg tablet RxNorm: 952176 1 Tablet(s) PO QHS 04/26/201508/2016 Inactive clonidine HCl 0.1 mg tablet RxNorm: 853142 1 Tablet(s) PO TID 04/2605/30/2015 Inactive replaces 0.2mg dose Klor-Con 8 mEq tablet,extended release RxNorm: 897764 1 Tablet( s) PO BID 04/26/2015 04/25/2016 Inactive metolazone 2.5 mg tablet RxNorm: 159395 1 Tablet(s) PO QD as ne eded for edema 04/26/2015 04/25/2015 Inactive triamterene 75 mg-hydrochlorothiazide 50 mg tablet RxNorm: 3 54372 1 Tablet(s) PO QD 04/26/2015 10/22/2015 Inactive Premarin 1.25 mg tablet RxNorm: 219091 1-2 Tablet(s) PO QD 04/26/20 15 10/22/2015 Inactive Bystolic 10 mg tablet RxNorm: 558111 1 Tablet(s) PO QAM TAKE ONE TABLET BY MOUTH EVERY MORNING 04/23/2015 06/23/2015 Inactive clonidine HCl 0.1 mg tablet RxNorm: 865253 1 Tablet(s) PO TID 03/2304/25/2015 Inactive replaces 0.2mg dose nystatin 100,000 unit/gram topical cream RxNorm: 528374 Applica tion TOP BID 03/23/2015 06/20/2015 Inactive baclofen 20 mg tablet RxNorm: 970108 1 Tablet(s) PO TID as needed 0 03/23/2015 04/25/2015 Inactive Premarin 1.25 mg tablet RxNorm: 247586 1-2 Tablet(s) PO QD 03/23/20 15 04/25/2015 Inactive Klor-Con 8 mEq tablet,extended release RxNorm: 935090 1 Tablet( s) PO BID 03/23/2015 04/25/2015 Inactive cefdinir 300 mg capsule RxNorm: 179635 2 Capsule(s) PO QD 03/16/2015 03/25/2015 Inactive baclofen 20 mg tablet RxNorm: 150377 1 Tablet(s) PO TID as needed 0 03/02/2015 03/22/2015 Inactive allopurinol 300 mg tablet RxNorm: 781013 1 Tablet(s) PO QD TAKE ONE TABLET BY MOUTH EVERY DAY 02/22/2015 05/22/2015 Inactive Klor-Con M20 mEq tablet,extended release RxNorm: 139720 2 Tablet(s) PO BID to use with lasix 02/22/2015 06/20/2015 Inactive clonidine HCl 0.1 mg tablet RxNorm: 305498 1 Tablet(s) PO TID 02/1903/22/2015 Inactive replaces 0.2mg dose Lipitor 10 mg tablet RxNorm: 041822 1 Tablet(s) PO QHS 01/20/201506/2015 Inactive Lipitor 10 mg tablet RxNorm: 770678 1 Tablet(s) PO QHS 01/20/2015 Inactive Singulair 10 mg tablet RxNorm: 244772 1 Tablet(s) PO QD TAKE ONE TABLET BY MOUTH EVERY DAY 11/20/2014 05/18/2015 Inactive Lipitor 10 mg tablet RxNorm: 161225 1 Tablet(s) PO QHS 11/20/201408/2015 Inactive allopurinol 300 mg tablet RxNorm: 237699 1 Tablet(s) PO QD TAKE ONE TABLET BY MOUTH EVERY DAY 11/20/2014 02/16/2015 Inactive Bystolic 10 mg tablet RxNorm: 800233 1 Tablet(s) PO QAM TAKE ONE TABLET BY MOUTH EVERY MORNING 11/20/2014 04/22/2015 Inactive Klor-Con 8 mEq tablet,extended release RxNorm: 961265 1 Tablet( s) PO BID 11/20/2014 02/17/2015 Inactive baclofen 20 mg tablet RxNorm: 136485 1 Tablet(s) PO TID as needed 0 11/20/2014 01/21/2019 Inactive baclofen 20 mg tablet RxNorm: 397310 1 Tablet(s) PO TID as needed 0 10/27/2014 11/19/2014 Inactive baclofen 20 mg tablet RxNorm: 438005 1 Tablet(s) PO TID as needed 0 10/26/2014 03/01/2015 Inactive allopurinol 300 mg tablet RxNorm: 379780 1 Tablet(s) PO QD TAKE ONE TABLET BY MOUTH EVERY DAY 10/26/2014 11/20/2014 Inactive Bystolic 10 mg tablet RxNorm: 525678 1 Tablet(s) PO QAM TAKE ONE TABLET BY MOUTH EVERY MORNING 10/26/2014 11/20/2014 Inactive clonidine HCl 0.1 mg tablet RxNorm: 344235 1 Tablet(s) PO TID 09/2805/27/2019 Inactive replaces 0.2mg dose clonidine HCl 0.1 mg tablet RxNorm: 549110 1 Tablet(s) PO TID 09/2802/18/2015 Inactive replaces 0.2mg dose baclofen 20 mg tablet RxNorm: 894302 1 Tablet(s) PO TID as needed 1 11/01/2013 08/30/2014 Inactive Lipitor 10 mg tablet RxNorm: 418672 1 Tablet(s) PO QHS 08/31/2014 Inactive baclofen 20 mg tablet RxNorm: 538998 1 Tablet(s) PO TID as needed 1 11/01/2013 10/26/2014 Inactive triamterene 75 mg-hydrochlorothiazide 50 mg tablet RxNorm: 3 91134 1 Tablet(s) PO QD 08/31/2014 02/26/2015 Inactive Klor-Con 8 mEq tablet,extended release RxNorm: 345160 1 Tablet( s) PO BID 08/31/2014 11/20/2014 Inactive baclofen 20 mg tablet RxNorm: 695434 1 Tablet(s) PO TID as needed 1 09/30/2013 10/25/2014 Inactive baclofen 20 mg tablet RxNorm: 984284 1 Tablet(s) PO TID as needed 1 09/30/2013 08/31/2014 Inactive omeprazole 40 mg capsule,delayed release RxNorm: 893976 1 Capsu le(s) PO QD 07/21/2014 07/23/2015 Inactive Flonase 50 mcg/actuation nasal spray,suspension RxNorm: 8963 23 1 [place] NASAL BID 07/15/2014 04/09/2017 Inactive hydrocodone 10 mg-acetaminophen 325 mg tablet RxNorm: 680371 1-2 Tablet(s) QID as needed for pain TAKE ONE TO TWO TABLETS BY MOUTH FOUR TIMES A DAY . MUST LAST 30 DAYS 06/30/2014 07/27/2014 Inactive (Response to an electronic controlled substance refill request - RxReferenceNumber: [id number]) baclofen 20 mg tablet RxNorm: 060680 1 Tablet(s) PO TID as needed 1 07/31/2014 Inactive Singulair 10 mg tablet RxNorm: 043067 1 Tablet(s) PO QD TAKE ONE TABLET BY MOUTH EVERY DAY 05/25/2014 11/20/2014 Inactive Bystolic 10 mg tablet RxNorm: 816118 TAKE ONE TABLET BY MOUTH E VERY MORNING 05/25/2014 09/21/2014 Inactive allopurinol 300 mg tablet RxNorm: 589680 1 Tablet(s) PO QD TAKE ONE TABLET BY MOUTH EVERY DAY 05/25/2014 10/21/2014 Inactive baclofen 20 mg tablet RxNorm: 975829 1 Tablet(s) PO TID as needed 0 05/25/2014 06/29/2014 Inactive allopurinol 300 mg tablet RxNorm: 272522 TAKE ONE TABLET BY LOPEZ TH EVERY DAY 05/25/2014 09/21/2014 Inactive Singulair 10 mg tablet RxNorm: 780483 1 Tablet(s) PO QD TAKE ONE TABLET BY MOUTH EVERY DAY 05/25/2014 05/24/2014 Inactive Bystolic 10 mg tablet RxNorm: 329296 1 Tablet(s) PO QAM TAKE ONE TABLET BY MOUTH EVERY MORNING 05/25/2014 10/21/2014 Inactive metolazone 2.5 mg tablet RxNorm: 218860 1 Tablet(s) PO QD as ne eded for edema 05/18/2014 04/25/2015 Inactive Lasix 40 mg tablet RxNorm: 853919 1 Tablet(s) PO RAZA ramirez take potassium supplementation with this medication 05/14/2014 05/17/2014 Inactive hydrocodone 10 mg-acetaminophen 325 mg tablet RxNorm: 251983 1-2 Tablet(s) QID as needed for pain TAKE ONE TO TWO TABLETS BY MOUTH FOUR TIMES A DAY . MUST LAST 30 DAYS 05/07/2014 06/05/2014 Inactive (Response to an electronic controlled substance refill request - RxReferenceNumber: [id number]) alprazolam 0.5 mg tablet RxNorm: 065786 TAKE ONE TABLET BY MOUTH TWICE A DAY , MUST LAST 30 DAYS 05/07/2014 05/22/2016 Inactive (Response to a n electronic controlled substance refill request - RxReferenceNumber: [id number]) diclofenac sodium 75 mg tablet,delayed release RxNorm: 58550 6 1 Tablet(s) PO BID for pain 04/24/2014 07/20/2014 Inactive Celebrex 200 mg capsule RxNorm: 653609 TAKE ONE CAPSULE BY MOUT H EVERY DAY 04/24/2014 07/20/2014 Inactive alprazolam 0.5 mg tablet RxNorm: 636745 TAKE ONE TABLET BY MOUTH TWICE A DAY , MUST LAST 30 DAYS 03/24/2014 04/22/2014 Inactive (Response to a n electronic controlled substance refill request - RxReferenceNumber: [id number]) diclofenac sodium 75 mg tablet,delayed release RxNorm: 96842 6 1 Tablet(s) PO BID for pain 03/24/2014 04/24/2014 Inactive clonidine HCl 0.1 mg tablet RxNorm: 196302 1 Tablet(s) PO TID 03/2409/28/2014 Inactive replaces 0.2mg dose Klor-Con 8 mEq tablet,extended release RxNorm: 874155 1 Tablet( s) PO BID 02/26/2014 08/31/2014 Inactive diclofenac sodium 75 mg tablet,delayed release RxNorm: 72311 6 1 Tablet(s) PO BID for pain 02/25/2014 03/24/2014 Inactive hydrocodone 10 mg-acetaminophen 325 mg tablet RxNorm: 068919 1-2 Tablet(s) QID as needed for pain TAKE ONE TO TWO TABLETS BY MOUTH FOUR TIMES A DAY . MUST LAST 30 DAYS 02/25/2014 03/26/2014 Inactive (Response to an electronic controlled substance refill request - RxReferenceNumber: [id number]) alprazolam 0.5 mg tablet RxNorm: 793841 Tablet(s) PO BI D as needed for anxiety TAKE ONE TABLET BY MOUTH TWICE A DAY , MUST LAST 30 DAYS 02/25/2014 Inactive (Response to an electronic controlled [place] bstance refill request - RxReferenceNumber: [id number]) [AttnRPh: Saving apply/adjudicate RxGRP:SG20 RxBIN:[id number] RxPCN: ID#:[id number]] alprazolam 0.5 mg tablet RxNorm: 454657 Tablet(s) TAKE ONE TABLET BY MOUTH TWICE A DAY , MUST LAST 30 DAYS 01/27/2014 02/24/2014 Inactive (Respo nse to an electronic controlled substance refill request - RxReferenceNumber: [id number]) [AttnRPh: Saving apply/adjudicate RxGRP:SG20 RxBIN:[id number] RxPCN: ID#:[id number]] hydrocodone 10 mg-acetaminophen 325 mg tablet RxNorm: 761256 1-2 Tablet(s) QID as needed for pain TAKE ONE TO TWO TABLETS BY MOUTH FOUR TIMES A DAY . MUST LAST 30 DAYS 01/27/2014 02/24/2014 Inactive (Response to an electronic controlled substance refill request - RxReferenceNumber: [id number]) alprazolam 0.5 mg tablet RxNorm: 679442 TAKE ONE TABLET BY MOUTH TWICE A DAY , MUST LAST 30 DAYS 01/27/2014 01/26/2014 Inactive (Response to a n electronic controlled substance refill request - RxReferenceNumber: [id number]) Premarin 1.25 mg tablet RxNorm: 159958 1-2 Tablet(s) PO QD 01/28/20 14 07/25/2014 Inactive alprazolam 0.5 mg tablet RxNorm: 287845 TAKE ONE TABLET BY MOUTH TWICE A DAY , MUST LAST 30 DAYS 01/27/2014 01/27/2014 Inactive (Response to a n electronic controlled substance refill request - RxReferenceNumber: [id number]) hydrocodone 10 mg-acetaminophen 325 mg tablet RxNorm: 424522 TAKE ONE TO TWO TABLETS BY MOUTH FOUR TIMES A DAY . MUST LAST 30 DAYS 01/27/20142013 Inactive (Response to an electronic controlled [place] bstance refill request - RxReferenceNumber: [id number]) Celebrex 200 mg capsule RxNorm: 368648 1 Capsule(s) PO QD TAKE ONE CAPSULE BY MOUTH EVERY DAY 12/29/2013 04/27/2014 Inactive hydrocodone 10 mg-acetaminophen 325 mg tablet RxNorm: 714069 1-2 Tablet(s) PO QID as needed for severe pain 12/29/2013 01/27/2014 Inactive allopurinol 300 mg tablet RxNorm: 104918 1 Tablet(s) PO QD TAKE ONE TABLET BY MOUTH EVERY DAY 12/29/2013 05/24/2014 Inactive alprazolam 0.5 mg tablet RxNorm: 788979 TAKE ONE TABLET BY MOUTH TWICE A DAY , MUST LAST 30 DAYS 12/29/2013 01/27/2014 Inactive (Response to a n electronic controlled substance refill request - RxReferenceNumber: [id number]) Celebrex 200 mg capsule RxNorm: 008233 1 Capsule(s) PO QD TAKE ONE CAPSULE BY MOUTH EVERY DAY 12/29/2013 12/29/2013 Inactive Bystolic 10 mg tablet RxNorm: 319952 1 Tablet(s) PO QAM TAKE ONE TABLET BY MOUTH EVERY MORNING 12/29/2013 05/24/2014 Inactive Bystolic 10 mg tablet RxNorm: 971524 1 Tablet(s) PO QAM TAKE ONE TABLET BY MOUTH EVERY MORNING 12/29/2013 12/29/2013 Inactive Singulair 10 mg tablet RxNorm: 931178 1 Tablet(s) PO QD TAKE ONE TABLET BY MOUTH EVERY DAY 12/29/2013 05/25/2014 Inactive hydrocodone 10 mg-acetaminophen 325 mg tablet RxNorm: 410684 TAKE ONE TO TWO TABLETS BY MOUTH FOUR TIMES A DAY . MUST LAST 30 DAYS 12/29/20132013 Inactive (Response to an electronic controlled [place] bstance refill request - RxReferenceNumber: [id number]) Trazadone 75mg Tablet RxNorm: 1 Tablet(s) PO QHS as needed 03/23/2014 Inactive Trazadone 75mg Tablet RxNorm: 1 Tablet(s) PO QHS 12/24/20132014 Inactive Soma 350 mg tablet RxNorm: 715616 Tablet(s) PO TAKE ON E TABLET BY MOUTH THREE TIMES A DAY NEEDED FOR MUSCLE SPASMS. THIS MUST LAST 30 DAYS BETWEEN REFILLS. 12/10/2013 12/22/2013 Inactive (Appended: Cont rolled substance eRx refill - RxReferenceNumber: [id number]) diclofenac sodium 75 mg tablet,delayed release RxNorm: 11531 6 1 Tablet(s) PO BID for pain 12/10/2013 02/24/2014 Inactive allopurinol 300 mg tablet RxNorm: 673293 1 Tablet(s) PO QD 11/20/19 14 12/29/2013 Inactive alprazolam 0.5 mg tablet RxNorm: 526332 2 Tablet(s) PO BID 11/13/19 14 12/29/2013 Inactive prn clonidine 0.1 mg tablet RxNorm: 249020 1 Tablet(s) PO TID 11/12/2013 02/09/2014 Inactive replaces 0.2mg dose Klor-Con M20 mEq tablet,extended release RxNorm: 739247 2 Tablet(s) PO BID to use with lasix 11/12/2013 05/10/2014 Inactive Singulair 10 mg tablet RxNorm: 604792 1 Tablet(s) PO QD 11/12/2013 Inactive hydrocodone 10 mg-acetaminophen 325 mg tablet RxNorm: 304091 1-2 Tablet(s) PO QID as needed for severe pain 11/12/2013 12/28/2013 Inactive Bystolic 10 mg tablet RxNorm: 706131 1 Tablet(s) PO QAM 11/12/2013 Inactive Soma 350 mg tablet RxNorm: 835072 Tablet(s) PO TAKE ON E TABLET BY MOUTH THREE TIMES A DAY NEEDED FOR MUSCLE SPASMS. THIS MUST LAST 30 DAYS BETWEEN REFILLS. 10/13/2013 12/10/2013 Inactive (Appended: Cont rolled substance eRx refill - RxReferenceNumber: [id number]) hydrocodone 10 mg-acetaminophen 325 mg tablet RxNorm: 745534 1-2 Tablet(s) PO QID as needed for severe pain 10/03/2013 11/11/2013 Inactive diclofenac sodium 75 mg tablet,delayed release RxNorm: 00881 8 1 Tablet(s) PO BID for pain 09/11/2013 12/10/2013 Inactive alprazolam 0.5 mg tablet RxNorm: 603653 1 Tablet(s) PO BID May refill on 04/26/13 09/01/2013 10/30/2013 Inactive prn hydrocodone 10 mg-acetaminophen 325 mg tablet RxNorm: 070723 1-2 Tablet(s) PO QID as needed for severe pain 09/01/2013 10/02/2013 Inactive triamterene 75 mg-hydrochlorothiazide 50 mg tablet RxNorm: 3 64128 1 Tablet(s) PO QD 08/04/2013 08/31/2014 Inactive cyclobenzaprine 10 mg tablet RxNorm: 507124 1 Tablet(s) PO TID prn spasm 08/04/2013 08/13/2013 Inactive clonidine 0.1 mg tablet RxNorm: 515450 1 Tablet(s) PO TID 08/04/2013 11/11/2013 Inactive replaces 0.2mg dose cyclobenzaprine 10 mg tablet RxNorm: 247995 1 Tablet(s) PO TID prn spasm 07/23/2013 08/01/2013 Inactive hydrocodone 10 mg-acetaminophen 325 mg tablet RxNorm: 973466 2 1-2 Tablet(s) PO QID as needed for severe pain 06/09/2013 08/07/2013 Inactive Singulair 10 mg tablet RxNorm: 050213 1 Tablet(s) PO QD 05/29/2013 Inactive Klor-Con 8 mEq tablet,extended release RxNorm: 378168 1 Tablet( s) PO BID 05/29/2013 02/26/2014 Inactive allopurinol 300 mg tablet RxNorm: 875392 1 Tablet(s) PO QD 05/29/20 13 11/19/2013 Inactive Bystolic 10 mg tablet RxNorm: 152317 1 Tablet(s) PO QAM take one daily in the morning. 05/29/2013 11/11/2013 Inactive scopolamine 1.5 mg 72 hr Transderm Patch RxNorm: 665993 Application TD Q72H for motion sickness 05/26/2013 07/22/2013 Inactive Soma 350 mg tablet RxNorm: 821552 1 Tablet(s) PO TID as needed for spasm 05/19/2013 10/13/2013 Inactive diclofenac sodium 75 mg tablet,delayed release RxNorm: 48530 8 1 Tablet(s) PO BID for pain 05/14/2013 07/22/2013 Inactive allopurinol 300 mg tablet RxNorm: 160617 1 Tablet(s) PO QD 04/25/2005/28/2013 Inactive alprazolam 0.5 mg tablet RxNorm: 095127 1 Tablet(s) PO BID May refill on 04/26/13 04/25/2013 06/23/2013 Inactive prn Celebrex 200 mg capsule RxNorm: 049583 1 Capsule(s) PO QD 04/16/2013 12/29/2013 Inactive alprazolam 0.5 mg tablet RxNorm: 053981 1 Tablet(s) PO BID May refill on 04/26/13 04/16/2013 04/24/2013 Inactive prn Soma 350 mg tablet RxNorm: 456931 1 Tablet(s) PO TID as needed for spasm 04/16/2013 No Stop Date Active Lasix 40 mg tablet RxNorm: 773493 1 Tablet(s) PO RAZA purdyuld take potassium supplementation with this medication 04/16/2013 06/14/2013 Inactive clonidine 0.1 mg tablet RxNorm: 628283 1 Tablet(s) PO TID 04/16/2013 08/03/2013 Inactive replaces 0.2mg dose prednisone 20 mg tablet RxNorm: 560548 1 Tablet(s) PO BID 04/16/2013 04/20/2013 Inactive diclofenac sodium 75 mg tablet,delayed release RxNorm: 48406 8 1 Tablet(s) PO BID for pain 04/14/2013 05/13/2013 Inactive hydrocodone 10 mg-acetaminophen 325 mg tablet RxNorm: 973134 2 1-2 Tablet(s) PO QID as needed for severe pain 04/14/2013 No Stop Date Active Lasix 40 mg tablet RxNorm: 569058 1 Tablet(s) PO QAM s hould take potassium supplementation with this medication 03/31/2013 04/15/2013 Inactive Celebrex 200 mg capsule RxNorm: 227878 1 Capsule(s) PO QD 03/31/2013 04/15/2013 Inactive alprazolam 0.5 mg tablet RxNorm: 992211 1 Tablet(s) PO BID 03/28/20 13 04/15/2013 Inactive prn hydrocodone 10 mg-acetaminophen 325 mg tablet RxNorm: 487453 2 1-2 Tablet(s) PO QID as needed for severe pain 03/10/2013 No Stop Date Active metformin ER 500 mg 24 hr tablet,extended release RxNorm: 86 1018 1 Tablet(s) PO QD 03/06/2013 07/22/2013 Inactive clindamycin 300 mg capsule RxNorm: 059212 2 Capsule(s) PO TID 03/0503/14/2013 Inactive Zaroxolyn 2.5 mg tablet RxNorm: 800396 1 Tablet(s) PO QAM 03/05/2013 05/19/2015 Inactive amlodipine 10 mg tablet RxNorm: 501352 1 Tablet(s) PO QD 03/03/2013 0 05/25/2013 Inactive Norvasc 10 mg tablet RxNorm: 418571 1 Tablet(s) PO QD 02/28/201307/11 Inactive Celebrex 200 mg capsule RxNorm: 023122 1 Capsule(s) PO QD 02/28/2013 03/30/2013 Inactive diclofenac sodium 75 mg tablet,delayed release RxNorm: 37402 8 1 Tablet(s) PO BID for pain 02/14/2013 03/15/2013 Inactive Soma 350 mg tablet RxNorm: 607062 1 Tablet(s) PO TID as needed for spasm 02/14/2013 No Stop Date Active hydrocodone 10 mg-acetaminophen 325 mg tablet RxNorm: 286847 2 1-2 Tablet(s) PO QID as needed for severe pain 02/14/2013 No Stop Date Active Norvasc 10 mg tablet RxNorm: 856425 1 Tablet(s) PO QD 02/10/201302/09 Inactive Celebrex 200 mg capsule RxNorm: 194742 1 Capsule(s) PO QD 01/27/2013 01/26/2013 Inactive Premarin 1.25 mg tablet RxNorm: 734219 1-2 Tablet(s) PO QD 01/28/20 13 06/25/2013 Inactive alprazolam 0.5 mg tablet RxNorm: 364055 1 Tablet(s) PO BID 01/28/20 13 02/25/2013 Inactive prn amlodipine 5 mg tablet RxNorm: 463851 1 Tablet(s) PO QD 01/27/2013 Inactive Celebrex 200 mg capsule RxNorm: 145215 1 Capsule(s) PO QD 01/27/2013 02/27/2013 Inactive gabapentin 600 mg tablet RxNorm: 295420 1 Tablet(s) PO QHS 01/16/20 13 07/22/2013 Inactive Soma 350 mg tablet RxNorm: 661929 1 Tablet(s) PO TID as needed for spasm 01/15/2013 No Stop Date Active hydrocodone 10 mg-acetaminophen 325 mg tablet RxNorm: 887461 2 1-2 Tablet(s) PO QID as needed for severe pain 01/15/2013 No Stop Date Active Soma 350 mg tablet RxNorm: 842278 1 Tablet(s) PO TID as needed for spasm 01/13/2013 No Stop Date Active alprazolam 0.5 mg tablet RxNorm: 562466 1 Tablet(s) PO BID 12/31/19 13 01/26/2013 Inactive prn diclofenac sodium 75 mg tablet,delayed release RxNorm: 78499 8 1 Tablet(s) PO BID for pain 12/09/2012 01/07/2013 Inactive gabapentin 600 mg tablet RxNorm: 170246 1 Tablet(s) PO QHS 12/10/19 13 01/07/2013 Inactive hydrocodone 10 mg-acetaminophen 325 mg tablet RxNorm: 785653 2 1-2 Tablet(s) PO QID as needed for severe pain 12/02/2012 No Stop Date Active Levaquin 750 mg tablet RxNorm: 745363 1 Tablet(s) PO QD 11/21/2012 Inactive Singulair 10 mg tablet RxNorm: 821932 1 Tablet(s) PO QD 11/11/2012 Inactive clonidine 0.2 mg tablet RxNorm: 597975 1 Tablet(s) PO TID 11/11/2012 04/15/2013 Inactive alprazolam 0.5 mg tablet RxNorm: 566737 1 Tablet(s) PO BID 11/12/19 13 12/10/2012 Inactive prn Klor-Con 8 mEq tablet,extended release RxNorm: 511438 1 Tablet( s) PO BID 11/11/2012 03/04/2013 Inactive hydrocodone 10 mg-acetaminophen 325 mg tablet RxNorm: 835027 2 1-2 Tablet(s) PO QID as needed for severe pain 11/06/2012 No Stop Date Active alprazolam 0.5 mg tablet RxNorm: 568980 1 Tablet(s) PO BID 10/15/19 13 11/10/2012 Inactive prn hydrocodone-acetaminophen 10 mg-325 mg tablet RxNorm: 375593 2 1-2 Tablet(s) PO QID as needed for severe pain 10/10/2012 10/09/2012 Inactive allopurinol 300 mg tablet RxNorm: 616488 1 Tablet(s) PO QD 09/20/19 13 12/18/2012 Inactive alprazolam 0.5 mg tablet RxNorm: 815409 1 Tablet(s) PO BID 09/17/19 13 10/14/2012 Inactive prn hydrocodone-acetaminophen 10 mg-325 mg tablet RxNorm: 854341 2 1-2 Tablet(s) PO QID as needed for severe pain 08/22/2012 08/21/2012 Inactive Norvasc 10 mg tablet RxNorm: 389126 1 Tablet(s) PO QD 08/12/201201/10 Inactive Premarin 1.25 mg tablet RxNorm: 848011 1-2 Tablet(s) PO QD 07/30/20 12 12/26/2012 Inactive alprazolam 0.5 mg tablet RxNorm: 034814 1 Tablet(s) PO BID 07/29/20 12 08/27/2012 Inactive prn Klor-Con 8 mEq tablet,extended release RxNorm: 741301 1 Tablet( s) PO BID 07/29/2012 11/10/2012 Inactive hydrocodone-acetaminophen 10 mg-325 mg tablet RxNorm: 190699 2 1-2 Tablet(s) PO QID as needed for severe pain 07/29/2012 No Stop Date Active Premarin 1.25 mg tablet RxNorm: 648723 1-2 Tablet(s) PO QD 07/29/20 12 07/29/2012 Inactive clonidine 0.2 mg tablet RxNorm: 863674 1 Tablet(s) PO TID 07/29/2012 10/28/2012 Inactive ketorolac 10 mg tablet RxNorm: 319669 1 Tablet(s) PO QID prn mitul leonardche 07/18/2012 No Stop Date Active hydrocodone-acetaminophen 10 mg-325 mg tablet RxNorm: 515355 2 1-2 Tablet(s) PO QID as needed for severe pain 07/03/2012 No Stop Date Active amlodipine 5 mg tablet RxNorm: 397193 1 Tablet(s) PO QD 07/02/2012 Inactive allopurinol 300 mg tablet RxNorm: 915620 1 Tablet(s) PO QD 07/02/20 12 09/19/2012 Inactive Celebrex 200 mg capsule RxNorm: 548996 1 Capsule(s) PO QD for j oint pain 06/26/2012 10/23/2012 Inactive diclofenac sodium 75 mg tablet,delayed release RxNorm: 22841 8 1 Tablet(s) PO BID for pain 06/19/2012 09/16/2012 Inactive hydrocodone-acetaminophen 10 mg-325 mg tablet RxNorm: 468209 2 1-2 Tablet(s) PO QID as needed for severe pain 06/10/2012 No Stop Date Active alprazolam 0.5 mg tablet RxNorm: 233400 1 Tablet(s) PO BID 06/03/20 12 07/02/2012 Inactive prn ketorolac 10 mg tablet RxNorm: 436414 1 Tablet(s) PO Q8H 05/27/2012 0 01/21/2019 Inactive as needed for headache hydrocodone-acetaminophen 10 mg-325 mg tablet RxNorm: 326465 2 1-2 Tablet(s) PO QID as needed for severe pain 05/15/2012 No Stop Date Active allopurinol 300 mg tablet RxNorm: 341196 1 Tablet(s) PO QD 05/14/20 12 06/12/2012 Inactive allopurinol 300 mg tablet RxNorm: 004938 1 Tablet(s) PO QD 05/14/20 12 05/13/2012 Inactive amlodipine 5 mg tablet RxNorm: 516417 1 Tablet(s) PO QD 05/01/2012 Inactive amlodipine 5 mg Tab RxNorm: 034464 1 Tablet(s) PO QD 05/01/201204/30 Inactive Celebrex 200 mg capsule RxNorm: 872680 1 Capsule(s) PO QD for j oint pain 05/01/2012 06/25/2012 Inactive Singulair 10 mg tablet RxNorm: 718457 1 Tablet(s) PO QD 05/01/2012 Inactive alprazolam 0.5 mg tablet RxNorm: 854526 1 Tablet(s) PO BID 05/01/2005/30/2012 Inactive prn Celebrex 200 mg Cap RxNorm: 968769 1 Capsule(s) PO QD for joint radu n 05/01/2012 04/30/2012 Inactive hydrocodone-acetaminophen 10 mg-325 mg tablet RxNorm: 231225 2 1-2 Tablet(s) PO QID as needed for severe pain 04/19/2012 No Stop Date Active Lasix 40 mg tablet RxNorm: 289064 1 Tablet(s) PO QAM s rajwinderuld take potassium supplementation with this medication 04/05/2012 06/03/2012 Inactive alprazolam 0.5 mg Tab RxNorm: 126690 1 Tablet(s) PO BID 04/05/2012 Inactive prn hydrocodone-acetaminophen 10 mg-325 mg Tab RxNorm: 0781362 1-2 Tablet(s) PO QID as needed for severe pain 03/25/2012 03/24/2012 Inactive clonidine 0.2 mg Tab RxNorm: 936019 1 Tablet(s) PO TID 03/08/2012 Inactive alprazolam 0.5 mg Tab RxNorm: 415467 1 Tablet(s) PO BID 03/08/2012 Inactive prn Soma 350 mg tablet RxNorm: 542724 1 Tablet(s) PO TID for spasm 02/0903/18/2012 Inactive clonidine 0.2 mg tablet RxNorm: 500922 1 Tablet(s) PO TID 03/08/2012 07/28/2012 Inactive Celebrex 200 mg Cap RxNorm: 006191 1 Capsule(s) PO QD for joint radu n 03/01/2012 04/29/2012 Inactive amlodipine 5 mg Tab RxNorm: 011211 1 Tablet(s) PO QD 02/26/201202/24 Inactive amlodipine 5 mg Tab RxNorm: 019002 1 Tablet(s) PO QD 02/26/201204/25 Inactive Bactroban 2 % Ointment RxNorm: 474268 Application TOP QID to sores 02/23/2012 No Stop Date Active amlodipine 2.5 mg tablet RxNorm: 443457 1 Tablet(s) PO QHS 02/20/20 12 02/25/2012 Inactive doxycycline hyclate 100 mg Cap RxNorm: 5478325 1 Capsule(s) PO BID 02/20/2012 02/29/2012 Inactive hydrocodone-acetaminophen 10 mg-325 mg Tab RxNorm: 7470815 1-2 T ablet(s) PO QID 02/08/2012 No Stop Date Active alprazolam 0.5 mg Tab RxNorm: 786198 1 Tablet(s) PO BID 02/08/2012 Inactive prn Singulair 10 mg Tab RxNorm: 081903 1 Tablet(s) PO QD 02/08/201204/30 Inactive Soma 350 mg Tab RxNorm: 695556 1 Tablet(s) PO TID for spasm 012 03/07/2012 Inactive Soma 350 mg Tab RxNorm: 749289 1 Tablet(s) PO TID for spasm 012 02/05/2012 Inactive diclofenac sodium 75 mg tablet,delayed release RxNorm: 14190 8 1 Tablet(s) PO BID for pain 02/01/2012 03/18/2012 Inactive Celebrex 200 mg Cap RxNorm: 991334 1 Capsule(s) PO QD for joint radu n 01/30/2012 02/28/2012 Inactive Lasix 40 mg Tab RxNorm: 322069 1 Tablet(s) PO QAM 01/24/2012 03/18/20 12 Inactive potassium chloride ER 20 mEq tablet,extended release(part/cr yst) RxNorm: 918825 2 Tablet(s) PO BID 01/24/2012 02/22/2012 Inactive alprazolam 0.5 mg Tab RxNorm: 570113 1 Tablet(s) PO BID 01/11/2012 Inactive prn hydrocodone-acetaminophen 10 mg-325 mg Tab RxNorm: 7483572 1-2 T ablet(s) PO QID 01/11/2012 No Stop Date Active Ambien 10 mg Tab RxNorm: 206226 1 Tablet(s) PO QHS 01/11/2012 012 Inactive Klor-Con 8 mEq Tab RxNorm: 177329 1 Tablet(s) PO BID 01/11/201201/22 Inactive diclofenac sodium 75 mg Tab, Delayed Release RxNorm: 106504 1 Tablet(s) PO BID for pain 01/10/2012 01/31/2012 Inactive Ambien 10 mg Tab RxNorm: 520652 1 Tablet(s) PO QHS 12/11/2011 012 Inactive alprazolam 0.5 mg Tab RxNorm: 160872 1 Tablet(s) PO BID 12/11/2011 Inactive prn hydrocodone 10 mg-acetaminophen 325 mg tablet RxNorm: 758058 1-2 Tablet(s) PO TID 11/28/2011 No Stop Date Active as needed for pa in - Previous quantity #240, will start dosing for #180 in April 2011 per Doctor Td. Ambien 10 mg Tab RxNorm: 940220 1 Tablet(s) PO QHS 11/09/2011 012 Inactive alprazolam 0.5 mg Tab RxNorm: 726077 1 Tablet(s) PO BID 11/09/2011 Inactive prn hydrocodone-acetaminophen 10 mg-325 mg Tab RxNorm: 3237468 1-2 T ablet(s) PO TID 11/06/2011 No Stop Date Active as needed for pain - Previous quantity #240, will start dosing for #180 in April 2011 per Doctor Td. Singulair 10 mg Tab RxNorm: 380914 1 Tablet(s) PO QD 10/13/201110/12 Inactive Singulair 10 mg Tab RxNorm: 325952 1 Tablet(s) PO QD 10/13/201102/06 Inactive hydrocodone-acetaminophen 10 mg-325 mg Tab RxNorm: 3610171 1-2 T ablet(s) PO TID 10/10/2011 10/09/2011 Inactive as needed for pain - Previous quantity #240, will start dosing for #180 in April 2011 per Doctor Td. hydrocodone-acetaminophen 10 mg-325 mg Tab RxNorm: 5451414 1-2 T ablet(s) PO TID 10/09/2011 No Stop Date Active as needed for pain - Previous quantity #240, will start dosing for #180 in April 2011 per Doctor Td. Klor-Con 8 mEq Tab RxNorm: 861450 1 Tablet(s) PO BID 10/02/201101/09 Inactive triamterene 75 mg-hydrochlorothiazide 50 mg tablet RxNorm: 3 64506 1 Tablet(s) PO QD 09/14/2011 03/06/2013 Inactive Ambien 10 mg Tab RxNorm: 774491 1 Tablet(s) PO QHS 09/14/2011 012 Inactive hydrocodone-acetaminophen 10 mg-325 mg Tab RxNorm: 8144647 1-2 T ablet(s) PO TID 09/14/2011 No Stop Date Active as needed for pain - Previous quantity #240, will start dosing for #180 in April 2011 per Doctor Td. alprazolam 0.5 mg Tab RxNorm: 608322 1 Tablet(s) PO BID 09/14/2011 Inactive prn Zithromax 500 mg Tab RxNorm: 0842023 1 Tablet(s) PO QD 09/13/201106/2012 Inactive prednisone 20 mg Tab RxNorm: 817604 1 Tablet(s) PO BID 08/31/2011 Inactive Ambien 10 mg Tab RxNorm: 009729 1 Tablet(s) PO QHS 08/17/2011 011 Inactive hydrocodone-acetaminophen 10 mg-325 mg Tab RxNorm: 3239746 1-2 T ablet(s) PO TID 08/17/2011 No Stop Date Active as needed for pain - Previous quantity #240, will start dosing for #180 in April 2011 per Doctor Td. clonidine 0.2 mg Tab RxNorm: 523803 1 Tablet(s) PO TID 08/17/201112/2011 Inactive Ambien 10 mg Tab RxNorm: 854762 1 Tablet(s) PO QHS 08/17/2011 019 Inactive alprazolam 0.5 mg Tab RxNorm: 683209 1 Tablet(s) PO BID 08/17/2011 Inactive prn hydrocodone-acetaminophen 10 mg-325 mg Tab RxNorm: 7524590 1-2 T ablet(s) PO TID 08/17/2011 08/16/2011 Inactive as needed for pain - Previous quantity #240, will start dosing for #180 in April 2011 per Doctor Td. Singulair 10 mg Tab RxNorm: 358351 1 Tablet(s) PO QD 08/17/201108/16 Inactive Klor-Con 8 mEq Tab RxNorm: 109093 1 Tablet(s) PO QD 08/17/20112011 Inactive alprazolam 0.5 mg Tab RxNorm: 362572 1 Tablet(s) PO BID 07/20/2011 Inactive prn Ambien 10 mg Tab RxNorm: 545092 1 Tablet(s) PO QHS 07/20/2011 012 Inactive Singulair 10 mg Tab RxNorm: 270377 1 Tablet(s) PO QD 07/20/201107/19 Inactive Premarin 1.25 mg tablet RxNorm: 683807 2 Tablet(s) PO QD 07/20/2011 0 01/21/2019 Inactive Premarin 1.25 mg tablet RxNorm: 157490 1-2 Tablet(s) PO QD 07/20/20 11 12/16/2011 Inactive Premarin 1.25 mg Tab RxNorm: 171338 1-2 Tablet(s) PO QD 07/06/2011 Inactive alprazolam 0.5 mg Tab RxNorm: 981354 1 Tablet(s) PO BID 06/22/2011 Inactive prn alprazolam 0.5 mg Tab RxNorm: 577387 1 Tablet(s) PO BID 06/22/2011 Inactive prn Premarin 1.25 mg Tab RxNorm: 512600 1 Tablet(s) PO QD m ay do 90 day fill if desired 06/22/2011 07/05/2011 Inactive hydrocodone-acetaminophen 10 mg-325 mg Tab RxNorm: 2472889 1-2 T ablet(s) PO TID 06/22/2011 No Stop Date Active as needed for pain - Previous quantity #240, will start dosing for #180 in April 2011 per Doctor Td. clonidine 0.2 mg Tab RxNorm: 247806 1 Tablet(s) PO TID 05/25/201103/2011 Inactive triamterene-hydrochlorothiazide 75 mg-50 mg Tab RxNorm: 3108 18 1 Tablet(s) PO QD 05/25/2011 09/13/2011 Inactive alprazolam 0.5 mg Tab RxNorm: 698191 1 Tablet(s) PO BID 05/25/2011 Inactive prn hydrocodone-acetaminophen 10 mg-325 mg Tab RxNorm: 3188113 1-2 T ablet(s) PO TID 05/25/2011 No Stop Date Active as needed for pain - Previous quantity #240, will start dosing for #180 in April 2011 per Doctor Td. Robaxin-750 750 mg Tab RxNorm: 428557 2 Tablet(s) PO QHS 05/22/2011 1 Inactive prn spasm hydrocodone-acetaminophen 10 mg-325 mg Tab RxNorm: 7053134 1-2 T ablet(s) PO TID 04/26/2011 No Stop Date Active as needed for pain - Previous quantity #240, will start dosing for #180 in April 2011 per Doctor Td. alprazolam 0.5 mg Tab RxNorm: 519049 1 Tablet(s) PO BID 04/25/2011 Inactive prn Klor-Con 8 mEq Tab RxNorm: 386865 1 Tablet(s) PO QD 03/30/20112010 Inactive Klor-Con 8 mEq Tab RxNorm: 102131 1 Tablet(s) PO QD 03/29/20112010 Inactive hydrocodone-acetaminophen 10 mg-325 mg Tab RxNorm: 1890835 1-2 T ablet(s) PO TID 03/20/2011 04/25/2011 Inactive as needed for pain - Previous quantity #240, will start dosing for #180 in April 2011 per Doctor Td. alprazolam 0.5 mg Tab RxNorm: 910921 1 Tablet(s) PO BID prn 011 03/30/2011 Inactive Ambien 10 mg Tab RxNorm: 125038 1 Tablet(s) PO QHS 03/01/2011 011 Inactive cyclobenzaprine 10 mg Tab RxNorm: 796121 1 Tablet(s) PO TID 011 03/18/2012 Inactive cyclobenzaprine 10 mg Tab RxNorm: 192814 1 Tablet(s) PO TID 011 01/08/2011 Inactive cyclobenzaprine 10 mg Tab RxNorm: 508694 1 Tablet(s) PO TID 011 12/20/2010 Inactive terbinafine 250 mg Tab RxNorm: 556066 1 Tablet(s) PO QD 12/12/2010 Inactive triamterene-hydrochlorothiazide 75 mg-50 mg Tab RxNorm: 3108 18 1 Tablet(s) PO QD 12/07/2010 06/04/2011 Inactive Klor-Con 8 8 mEq Tab RxNorm: 558592 1 Tablet(s) PO QD 12/07/201001/08 Inactive Premarin 1.25 mg Tab RxNorm: 871291 2 Tablet(s) PO QD 12/07/201001/08 Inactive clonidine 0.2 mg Tab RxNorm: 860956 1 Tablet(s) PO TID 12/07/2010 Inactive hydrocodone-acetaminophen 7.5 mg-650 mg Tab RxNorm: 563806 1 Ta blet(s) PO Q4H 12/05/2010 01/21/2019 Inactive hydrocodone-acetaminophen 7.5 mg-650 mg Tab RxNorm: 025383 1 Ta blet(s) PO Q4H 10/26/2010 11/14/2010 Inactive hydrocodone-acetaminophen 7.5 mg-650 mg Tab RxNorm: 739826 1 Ta blet(s) PO Q4H 10/13/2010 10/25/2010 Inactive hydrocodone-acetaminophen 7.5 mg-650 mg Tab RxNorm: 496001 1 Ta blet(s) PO Q4H 09/15/2010 09/12/2010 Inactive alprazolam 0.5 mg Tab RxNorm: 289861 1 Tablet(s) PO BID prn 011 09/12/2010 Inactive terbinafine 250 mg Tab RxNorm: 676942 1 Tablet(s) PO QD 09/05/2010 Inactive hydrocodone-acetaminophen 7.5 mg-650 mg Tab RxNorm: 609200 1 Ta blet(s) PO Q4H 08/29/2010 09/17/2010 Inactive alprazolam 0.5 mg Tab RxNorm: 964794 1 Tablet(s) PO BID prn 010 09/27/2010 Inactive alprazolam 0.5 mg Tab RxNorm: 955879 1 Tablet(s) PO BID prn 010 09/06/2010 Inactive Klor-Con 8 mEq Tab RxNorm: 494667 1 Tablet(s) PO QD 08/08/20102010 Inactive hydrocodone-acetaminophen 7.5 mg-650 mg Tab RxNorm: 657613 1 Ta blet(s) PO Q4H 08/08/2010 08/27/2010 Inactive Ambien 10 mg Tab RxNorm: 607862 1 Tablet(s) PO QHS 08/08/2010 Inactive clonidine 0.2 mg Tab RxNorm: 532544 1 Tablet(s) PO TID 08/08/2010 Inactive Premarin 1.25 mg Tab RxNorm: 330244 2 Tablet(s) PO QD 08/08/201009/12 Inactive Ambien 10 mg Tab RxNorm: 807119 1 Tablet(s) PO QHS 07/18/2010 Inactive alprazolam 0.5 mg Tab RxNorm: 102306 1 Tablet(s) PO BID prn 010 08/07/2010 Inactive hydrocodone-acetaminophen 7.5 mg-650 mg Tab RxNorm: 712303 1 Ta blet(s) PO Q4H 07/12/2010 07/31/2010 Inactive clonidine 0.2 mg Tab RxNorm: 568209 1 Tablet(s) PO TID 06/20/2010 Inactive terbinafine 250 mg Tab RxNorm: 587710 1 Tablet(s) PO QD 05/24/2010 Inactive Clonidine 0.2 mg Tab RxNorm: 558375 1 Tablet(s) PO TID 05/24/201006/2010 Inactive Ambien 10 mg Tab RxNorm: 249193 1 Tablet(s) PO QHS 05/24/2010 010 Inactive alprazolam 0.5 mg Tab RxNorm: 419932 1 Tablet(s) PO BID 05/24/2010 Inactive Klor-Con 8 mEq Tab RxNorm: 728395 1 Tablet(s) PO QD 05/24/20102009 Inactive alprazolam 0.5 mg Tab RxNorm: 941403 2 Tablet(s) PO QD prn 05/24/20 10 07/17/2010 Inactive triamterene-hydrochlorothiazide 75 mg-50 mg Tab RxNorm: 3108 18 1 Tablet(s) PO QD 05/24/2010 11/19/2010 Inactive Ambien 10 mg Tab RxNorm: 629413 1 Tablet(s) PO QHS 05/23/2010 010 Inactive Alprazolam 0.5 mg Tab RxNorm: 086311 2 Tablet(s) PO QD prn 05/23/2005/23/2010 Inactive Premarin 1.25 mg Tab RxNorm: 308556 2 Tablet(s) PO QD 05/19/201007/12 Inactive Hydrocodone-Acetaminophen 7.5 mg-650 mg Tab RxNorm: 386790 1 Ta blet(s) PO Q4H 05/19/2010 03/20/2011 Inactive Prednisone 20 mg Tab RxNorm: 359310 1 Tablet(s) PO BID 05/17/2010 Inactive Prednisone 20 mg Tab RxNorm: 357650 1 Tablet(s) PO BID 05/06/201001/2010 Inactive Premarin 1.25 mg Tab RxNorm: 216771 Tablet(s) PO 2 M-W-F, and 1 Ry-Xv-Kqn-Sun 05/05/2010 08/02/2010 Inactive Premarin 1.25 mg Tab RxNorm: 152773 Tablet(s) PO 2 M-W-F, and 1 Py-Oo-Tsw-Sun 05/04/2010 05/04/2010 Inactive Premarin 1.25 mg Tab RxNorm: 527738 Tablet(s) PO 2 M-W-F, and Jy-Po-Hok-Sun 05/04/2010 05/03/2010 Inactive Prednisone 20 mg Tab RxNorm: 429334 1 Tablet(s) PO BID 04/27/2010 Inactive Alprazolam 0.5 mg Tab RxNorm: 379447 2 Tablet(s) PO QD prn 04/26/20 10 05/22/2010 Inactive Clindamycin 300 mg Cap RxNorm: 411293 2 Capsule(s) PO TID 04/05/2010 04/18/2010 Inactive Terbinafine 250 mg Tab RxNorm: 733297 1 Tablet(s) PO QD 04/04/2010 Inactive Hydrocodone-Acetaminophen 7.5 mg-650 mg Tab RxNorm: 412792 1 Ta blet(s) PO Q4H 03/30/2010 04/18/2010 Inactive Avelox 400 mg Tab RxNorm: 963310 1 Tablet(s) PO QD 03/09/2010 010 Inactive Hydrocodone-Acetaminophen 7.5 mg-650 mg Tab RxNorm: 827394 1 Ta blet(s) PO Q4H 03/08/2010 03/27/2010 Inactive Alprazolam 0.5 mg Tab RxNorm: 058969 2 Tablet(s) PO QD prn 03/08/20 10 04/25/2010 Inactive Klor-Con 8 mEq Tab RxNorm: 255225 1 Tablet(s) PO QD when takes lasi x 03/07/2010 08/03/2010 Inactive Premarin 1.25 mg Tab RxNorm: 691802 1 Tablet(s) PO QD 03/03/201003/11 Inactive Alprazolam 0.5 mg Tab RxNorm: 883546 1 Tablet(s) PO BID PRN 010 No Stop Date Active triamterene-hydrochlorothiazide 75 mg-50 mg Tab RxNorm: 3108 18 1 Tablet(s) PO QD 02/09/2010 02/03/2011 Inactive Hydrocodone-Acetaminophen 10 mg-750 mg Tab RxNorm: 603296 1 Tablet(s) PO Q4H PRN 02/09/2010 03/20/2011 Inactive Clonidine 0.2 mg Tab RxNorm: 849788 1 Tablet(s) PO TID 01/13/201009/2009 Inactive Alprazolam 0.5 mg Tab RxNorm: 996634 1 Tablet(s) PO BID PRN 010 01/12/2010 Inactive Hydrocodone-Acetaminophen 10 mg-750 mg Tab RxNorm: 463960 1 Tablet(s) PO Q4H PRN 01/13/2010 01/12/2010 Inactive ANGELIQ 1 mg-0.5 mg Tab RxNorm: 4671072 1 Tablet(s) PO QD 12/27/2009 01/23/2010 Inactive Lasix 40 mg Tab RxNorm: 851199 1 Tablet(s) PO QAM 12/14/2009 06/11/20 10 Inactive Vitamin B12 1000mcg Tablet RxNorm: 1 Tablet(s) PO QD No Start Date Active cyclobenzaprine 10 mg tablet RxNorm: 501974 1 Tablet(s) PO TID as needed DO NOT USE WITH BACLOFEN No Start Date Active Vitamin D 5,000 unit Tab RxNorm: 1 Tablet(s) PO QD No Start Date Active vitamin E (dl, acetate) 400 unit Cap RxNorm: 642214 1 Capsule(s ) PO QD No Start Date Active Benadryl 25 mg Cap RxNorm: 6845523 Capsule(s) PO PRN No Start Date Inactive amitriptyline 100 mg tablet RxNorm: 217980 1 Tablet(s) PO QHS No St art Date 11/27/2016 Inactive Zithromax Z-Dustin 250 mg tablet RxNorm: 988270 Tablet(s) PO as di rected No Start Date 07/22/2013 Inactive Klor-Con 8 mEq tablet,extended release RxNorm: 886874 1 Tablet( s) PO BID No Start Date 07/28/2012 Inactive scopolamine 1.5 mg 72 hr Transderm Patch RxNorm: 620013 Application TD Q72H for motion sickness No Start Date 05/25/2013 Inactive Klonopin 1 mg tablet RxNorm: 196717 1-2 Tablet(s) PO QHS as nee ded for sleep No Start Date 06/20/2015 Inactive Klor-Con M20 mEq tablet,extended release RxNorm: 919269 2 Tablet(s) PO BID to use with lasix No Start Date 11/11/2013 Inactive Bystolic 5 mg tablet RxNorm: 291363 1 Tablet(s) PO QD No Start Date 1 Inactive Bystolic 10 mg tablet RxNorm: 741829 1 Tablet(s) PO BID No Start Da te 07/06/2015 Inactive Premarin 1.25 mg Tab RxNorm: 637190 Tablet(s) PO 2 M-W-F, and 1 Lp-Aq-Ohb-Sun No Start Date 05/03/2010 Inactive baclofen 20 mg tablet RxNorm: 343855 1 Tablet(s) PO TID as needed for muscle spasm No Start Date 07/22/2015 Inactive hydrocodone-acetaminophen 7.5 mg-650 mg Tab RxNorm: 565118 1 Tablet(s) PO Q4H as needed for pain No Start Date 03/20/2011 Inactive albuterol sulfate 1.25 mg/3 mL Neb Solution RxNorm: 408138 1 Unit Dose INH Q4H 2boxes No Start Date 09/06/2015 Inactive Butrans 20 mcg/hour Transderm Patch RxNorm: 735157 1 TD WEEKLY apply to skin weekly after removing previous. No Start Date 07/22/2013 Inactive Medrol (Dustin) 4 mg tablets in a dose pack RxNorm: 245247 Tablet(s) PO As Directed No Start Date 07/30/2016 Inactive hydrocodone-acetaminophen 10 mg-325 mg Tab RxNorm: 9958438 1-2 Tablet(s) PO TID as needed for pain No Start Date 03/19/2011 Inactive Klonopin 1 mg tablet RxNorm: 444702 1 Tablet(s) PO QHS No Start Date 02/28/2016 Inactive honey topical RxNorm: topical No Start Date 06/16/2018 Inactive Clonidine 0.2 mg Tab RxNorm: 419650 1 Tablet(s) PO TID No Start Date 01/12/2010 Inactive ketorolac 10 mg tablet RxNorm: 241256 1 Tablet(s) PO Q8H No Start D ate 03/18/2012 Inactive as needed for headache Singulair 10 mg Tab RxNorm: 818275 1 Tablet(s) PO QD No Start Date Inactive Premarin 1.25 mg Tab RxNorm: 955548 1 Tablet(s) PO QD No Start Date 1 Inactive Flonase 50 mcg/Actuation Nasal [place] RxNorm: 0535528 1 [place] CECELIA AL BID No Start Date 03/18/2012 Inactive Terbinafine 250 mg Tab RxNorm: 060735 1 Tablet(s) PO QD No Start Da te 04/03/2010 Inactive Fexofenadine 180 mg Tab RxNorm: 5289403 1 Tablet(s) PO QD No Start Date 09/06/2015 Inactive baclofen 20 mg tablet RxNorm: 472473 1 Tablet(s) PO TID as needed N o Start Date 05/25/2014 Inactive Diovan 160 mg Tab RxNorm: 335436 1 Tablet(s) PO QD No Start Date 09/12 Inactive mupirocin 2 % topical ointment RxNorm: 858327 1 Application TOP QID No Start Date 04/25/2016 Inactive ZOFRAN ODT 4 mg Tab, Rapid Dissolve RxNorm: 886434 1 Tablet(s) PO Q4H No Start Date 03/18/2012 Inactive as needed for nausea and vomiting Alprazolam 0.5 mg Tab RxNorm: 845910 1 Tablet(s) PO BID PRN No Star t Date 01/12/2010 Inactive cyclobenzaprine 10 mg tablet RxNorm: 479947 1 Tablet(s) PO TID as needed for muscle spasm No Start Date 10/08/2017 Inactive Albuterol 0.083% Aerosol Solution RxNorm: 1 Appl ication INH Q4H Use one ampule every 4 hrs with nebulizer as needed for shortness of breath. No Start Date 10/09/2010 Inactive lorazepam 1 mg tablet RxNorm: 466906 1 1/2 Tablet(s) PO QHS No Star t Date 02/02/2016 Inactive Melatonin 3 mg Tab RxNorm: 201775 Tablet(s) PO PRN No Start Date 07/11 Inactive Medrol (Dustin) 4 mg Tabs in a Dose Pack RxNorm: 782167 Tablet(s) PO N o Start Date 11/28/2010 Inactive lorazepam 1 mg tablet RxNorm: 159547 1 Tablet(s) PO QHS as need ed for sleep No Start Date 01/30/2016 Inactive hydrocodone-acetaminophen 10 mg-325 mg Tab RxNorm: 7440737 1-2 Tablet(s) PO QID as needed for severe pain No Start Date 03/24/2012 Inactive celecoxib 200 mg capsule RxNorm: 783078 1 Capsule(s) PO BID No Star t Date 06/26/2019 Inactive amlodipine 5 mg-benazepril 20 mg capsule RxNorm: 451271 1 Capsu le(s) PO QD No Start Date 04/10/2017 Inactive Bystolic 20 mg tablet RxNorm: 296521 1/2 Tablet(s) PO QAM No Start Date 01/23/2016 Inactive Bystolic 20 mg tablet RxNorm: 778863 1 Tablet(s) PO QAM No Start Da te 04/25/2016 Inactive Ambien 10 mg Tab RxNorm: 663933 1 Tablet(s) PO QHS No Start Date 05/11 Inactive Klor-Con 8 mEq Tab RxNorm: 255455 1 Tablet(s) PO QD when takes lasix No Start Date 03/06/2010 Inactive aspirin 81 mg tablet RxNorm: 179216 1 Tablet(s) PO QD No Start Date 01/29/2018 Inactive hydrocodone-acetaminophen 10 mg-325 mg Tab RxNorm: 7648461 1-2 T ablet(s) PO QID No Start Date 01/10/2012 Inactive Bystolic 10 mg tablet RxNorm: 242975 1 Tablet(s) PO QAM take one daily in the morning. No Start Date 05/28/2013 Inactive nystatin 100,000 unit/mL Oral Susp RxNorm: 832361 5 Milliliter( s) PO QID No Start Date 03/18/2012 Inactive swish and spit scopolamine 1.5 mg 72 hr Transderm Patch RxNorm: 104225 1 Unit Dose TD Q72H for motion sickness No Start Date 12/23/2013 Inactive Hydrocodone-Acetaminophen 10 mg-750 mg Tab RxNorm: 049314 1 Tablet(s) PO Q4H PRN No Start Date 01/12/2010 Inactive Soma 350 mg tablet RxNorm: 577452 1 Tablet(s) PO TID as needed for spasm No Start Date 01/12/2013 Inactive baclofen 10 mg tablet RxNorm: 966713 1 Tablet(s) PO TID as needed for muscle spasm No Start Date 09/18/2019 Inactive Soma 350 mg Tab RxNorm: 840281 1 Tablet(s) PO TID for spasm No Star t Date 01/31/2012 Inactive Co Q-10 400 mg capsule RxNorm: 285024 1 Capsule(s) PO QD No Start D ate 01/21/2019 Inactive nystatin 100,000 unit/gram topical cream RxNorm: 165506 Applica tion TOP BID No Start Date 03/22/2015 Inactive Exforge 5 mg-160 mg Tab RxNorm: 116475 1 Tablet(s) PO QD No Start D ate 10/09/2010 Inactive Hydrocodone-Acetaminophen 7.5 mg-650 mg Tab RxNorm: 184827 1 Ta blet(s) PO Q4H No Start Date 03/07/2010 Inactive Robaxin-750 750 mg Tab RxNorm: 624047 1-2 Tablet(s) PO TID prn spasm No Start Date 05/21/2011 Inactive amlodipine 5 mg tablet RxNorm: 082075 1 Tablet(s) PO QHS No Start D ate 09/29/2015 Inactive oxycodone-acetaminophen 10 mg-325 mg tablet RxNorm: 3741359 1-2 Tablet(s) PO Q6H No Start Date 06/16/2018 Inactive Triamterene-Hydrochlorothiazide 75 mg-50 mg Tab RxNorm: 3108 18 1 Tablet(s) PO QD No Start Date 02/08/2010 Inactive Alprazolam 0.5 mg Tab RxNorm: 568051 2 Tablet(s) PO QD prn No Start Date 03/07/2010 Inactive Bystolic 20 mg tablet RxNorm: 086555 1 Tablet(s) PO QAM No Start Da te 08/17/2015 Inactive ketorolac 10 mg tablet RxNorm: 695084 1 Tablet(s) PO QID prn he adache No Start Date 07/17/2012 Inactive acyclovir 800 mg Tab RxNorm: 187923 1 Tablet(s) PO BID No Start Date 03/18/2012 Inactive duloxetine 60 mg capsule,delayed release RxNorm: 138655 1 Capsu le(s) PO QD No Start Date 09/29/2015 Inactive Norvasc 5 mg tablet RxNorm: 290101 1 Tablet(s) PO QHS No Start Date 1 10/18/2014 Inactive promethazine 25 mg tablet RxNorm: 711271 1 Tablet(s) PO Q8H use sparingly No Start Date 07/22/2013 Inactive alprazolam 0.5 mg tablet RxNorm: 617584 3 Tablet(s) PO QHS No Start Date 06/06/2015 Inactive Lunesta 3 mg tablet RxNorm: 261371 1 Tablet(s) PO QHS No Start Date 0 09/20/2017 Inactive hydrocodone-acetaminophen 10 mg-325 mg Tab RxNorm: 2046620 1-2 Tablet(s) PO TID as needed for pain No Start Date 12/10/2011 Inactive Coricidin HBP Cough & Cold 4 mg-30 mg Tab RxNorm: 0970102 Tablet (s) PO PRN No Start Date 10/09/2010 Inactive Bactroban 2 % Ointment RxNorm: 900108 Application TOP QID to so res No Start Date 02/22/2012 Inactive Flonase 50 mcg/actuation Nasal [place] RxNorm: 331511 2 [place] QHS No Start Date 03/03/2014 Inactive Medication Administered No Medication Administered data Immunizations Vaccine Codes Date Status Tetanus, Diptheria, Pertussis CVX: 115 02/27/2014 Results Observation Observation Code Item Item Code Result Date S [facility] Location COMPLETE BLOOD COUNT [id number] WBC 10.7 10e9/L 018 Unknown COMPLETE BLOOD COUNT [id number] RBC 4.59 10e12/L 2017 Unknown COMPLETE BLOOD COUNT [id number] HEMOGLOBIN 14.8 g/dL 12/11/19 18 Unknown COMPLETE BLOOD COUNT 0577005 HEMATOCRIT 44.9 % 12/11/19 18 Unknown COMPLETE BLOOD COUNT 0976053 MCV 97.8 fL 8 Unknown COMPLETE BLOOD COUNT 8578020 MCH 32.2 pg 8 Unknown COMPLETE BLOOD COUNT 6626179 MCHC 33.0 g/dL 8 Unknown COMPLETE BLOOD COUNT 1159789 PLATELET COUNT 261 10e9/L 10/2017 Unknown COMPLETE BLOOD COUNT 5970366 Mean Plt Volume 9.5 fL 10/2017 Unknown COMPLETE BLOOD COUNT 1569313 Neut Auto 59.9 % 8 Unknown COMPLETE BLOOD COUNT 9364000 Lymph Auto 27.4 % 12/11/19 18 Unknown COMPLETE BLOOD COUNT 3637363 [place] Auto 8.2 % 8 Unknown COMPLETE BLOOD COUNT 6793504 RDW 13.3 % 8 Unknown COMPLETE BLOOD COUNT 5983902 Eos Auto 4.1 % 8 Unknown COMPLETE BLOOD COUNT 0317932 Baso Auto 0.4 % 8 Unknown COMPLETE BLOOD COUNT 7129101 Neutrophil Abs 6.41 10e9/L Unknown COMPLETE BLOOD COUNT 6957414 Lymphocyte Abs 2.93 10e9/L Unknown COMPLETE BLOOD COUNT [id number] Monocyte Abs 0.88 10e9/L 10/2017 Unknown COMPLETE BLOOD COUNT 1907480 Eosinophil Abs 0.44 10e9/L Unknown COMPLETE BLOOD COUNT 2069164 RDW-SD 46.2 fL 8 Unknown COMPLETE BLOOD COUNT 4430030 Basophil Abs 0.04 10e9/L 10/2017 Unknown THYROID STIMULATING HORMONE 39322 TSH 4.015 uIU/mL 12/10/2017 Unknown COMPREHENSIVE METABOLIC 31014 AST 25 U/L 2017 Unknown COMPREHENSIVE METABOLIC 27893 ALT 17 U/L 2017 Unknown COMPREHENSIVE METABOLIC 72007 BUN 19 mg/dL 2017 Unknown COMPREHENSIVE METABOLIC 61246 ALBUMIN 4.0 g/dL 2017 Unknown COMPREHENSIVE METABOLIC 72094 CHLORIDE 91 mmol/L 2017 Unknown COMPREHENSIVE METABOLIC 19673 Bili Total 0.5 mg/dL 12/10 Unknown COMPREHENSIVE METABOLIC 04829 ALK PHOS 75 U/L 2017 Unknown COMPREHENSIVE METABOLIC 06299 SODIUM 136 mmol/L 12/10 Unknown COMPREHENSIVE METABOLIC 98189 CREATININE 1.05 mg/dL 10/2017 Unknown COMPREHENSIVE METABOLIC 67288 CALCIUM 8.9 mg/dL 2017 Unknown COMPREHENSIVE METABOLIC 36345 POTASSIUM 3.4 mmol/L 12/10 Unknown COMPREHENSIVE METABOLIC 23383 Total Protein 6.5 g/dL Unknown COMPREHENSIVE METABOLIC 94995 Glucose 138 mg/dL 2017 Unknown COMPREHENSIVE METABOLIC 51967 Bicarbonate 35 mmol/L 10/2017 Unknown COMPREHENSIVE METABOLIC 03166 AGAP 10 mmol/L 2017 Unknown MEAN GLUC 2224886 Calc Mean Gluc 171 mg/dL 12/10/2017 Unkn own LIPID GROUP 66857 Cholesterol 204 mg/dL 12/10/2017 Unkno wn LIPID GROUP 08158 Triglyceride 411 mg/dL 12/10/2017 Unkn own LIPID GROUP 98678 HDL CHOLESTEROL 50 mg/dL 12/10/2017 U nknown LIPID GROUP 29460 Chol/HDL Ratio 4.08 ratio 12/10/2017 U nknown LIPID GROUP 18143 NON-HDL Chol 154 mg/dL 12/10/2017 Unkn own LIPID GROUP 15401 LDL Cholesterol N/A Trig >400 018 Unknown GLYCOSYLATED HEMOGLOBIN TEST 91957 Hgb A1c 73379-5 7.6 % 0 12/10/2017 Unknown FREE T4 70571 T4 Free 1.40 ng/dL 12/10/2017 Unknown GFR CALC 7216248 GFR Non Afr Amr 55 mL/min 12/10/2017 Unk nown GFR CALC 9279182 GFR Afr Amr >60 mL/min 12/10/2017 Unknow n GFR CALC 4281764 GFR Non Afr Amr 48 mL/min 06/28/2017 Unk nown GFR CALC 6592422 GFR Afr Amr 59 mL/min 06/28/2017 Unknown COMPREHENSIVE METABOLIC 54520 AST 32 U/L 2016 Unknown COMPREHENSIVE METABOLIC 43434 ALT 22 U/L 2016 Unknown COMPREHENSIVE METABOLIC 75186 BUN 23 mg/dL 2016 Unknown COMPREHENSIVE METABOLIC 39590 ALBUMIN 4.7 g/dL 2016 Unknown COMPREHENSIVE METABOLIC 68991 CHLORIDE 89 mmol/L 2016 Unknown COMPREHENSIVE METABOLIC 37118 Bili Total 0.5 mg/dL 06/28 Unknown COMPREHENSIVE METABOLIC 05418 ALK PHOS 90 U/L 2016 Unknown COMPREHENSIVE METABOLIC 76436 SODIUM 135 mmol/L 06/28 Unknown COMPREHENSIVE METABOLIC 14354 CREATININE 1.18 mg/dL 06/10 Unknown COMPREHENSIVE METABOLIC 65196 CALCIUM 9.7 mg/dL 2016 Unknown COMPREHENSIVE METABOLIC 27960 POTASSIUM 3.5 mmol/L 06/28 Unknown COMPREHENSIVE METABOLIC 19533 Total Protein 7.7 g/dL Unknown COMPREHENSIVE METABOLIC 43364 Glucose 129 mg/dL 2016 Unknown COMPREHENSIVE METABOLIC 44869 Bicarbonate 34 mmol/L 06/10 Unknown COMPREHENSIVE METABOLIC 43690 AGAP 12 mmol/L 2016 Unknown LIPID GROUP 33579 HDL TEST 64 MG/DL 08/27/2014 Unknown LIPID GROUP 58277 TRIG 222 MG/DL 08/27/2014 Unknown LIPID GROUP 94351 TEST LDL 209 MG/DL 08/27/2014 Unknown LIPID GROUP 16528 CHOL 317 MG/DL 08/27/2014 Unknown LIPID GROUP 11406 RCHOL/HDL 4.95 RATIO 08/27/2014 Unknow n LIPID GROUP 27023 NON-HDL CH 253 MG/DL 08/27/2014 Unknow n GFR CALC 0530440 GFR AA >60 ML/MIN 08/27/2014 Unknown GFR CALC 2140113 GFR NON-AA >60 ML/MIN 08/27/2014 Unknown COMPLETE BLOOD COUNT 1351420 WBC 7.0 10e9/L 08/27/20 14 Unknown COMPLETE BLOOD COUNT 8280441 RBC 4.98 10e12/L 2013 Unknown COMPLETE BLOOD COUNT 3622022 HGB 15.6 g/dL 4 Unknown COMPLETE BLOOD COUNT 2512564 HCT DET 46.5 % 4 Unknown COMPLETE BLOOD COUNT 3697602 MCV 93.4 fL 4 Unknown COMPLETE BLOOD COUNT 8586623 MCH 31.3 pg 4 Unknown COMPLETE BLOOD COUNT 5334070 MCHC 33.5 g/dL 4 Unknown COMPLETE BLOOD COUNT 8223895 PLT 309 10e9/L 08/27/20 14 Unknown COMPLETE BLOOD COUNT 2573956 MPV 9.6 fL 4 Unknown COMPLETE BLOOD COUNT 7456994 CADEN % 57.2 % 4 Unknown COMPLETE BLOOD COUNT 9365615 LY % 33.2 % 4 Unknown COMPLETE BLOOD COUNT 3555786 MON % 7.3 % 4 Unknown COMPLETE BLOOD COUNT 2564971 EOS % 2.0 % 4 Unknown COMPLETE BLOOD COUNT 6818847 BASO % 0.3 % 4 Unknown COMPLETE BLOOD COUNT 4297624 RDW 13.7 % 4 Unknown COMPLETE BLOOD COUNT 6213659 ABS CADEN 4.00 10e9/L 014 Unknown COMPLETE BLOOD COUNT 2957847 ABS LYMPH 2.32 10e9/L 014 Unknown COMPLETE BLOOD COUNT 6843852 ABS MONO 0.51 10e9/L 014 Unknown COMPLETE BLOOD COUNT 1275089 ABS EOS 0.14 10e9/L 014 Unknown COMPLETE BLOOD COUNT 9586090 ABS BASO 0.02 10e9/L 014 Unknown COMPLETE BLOOD COUNT 1809198 RDW-SD 45.1 fL 4 Unknown COMPREHENSIVE METABOLIC 55659 AST 13 U/L 2013 Unknown COMPREHENSIVE METABOLIC 77067 ALT 11 IU/L 2013 Unknown COMPREHENSIVE METABOLIC 45382 BUN 23 MG/DL 2013 Unknown COMPREHENSIVE METABOLIC 53489 ALBUMIN 4.4 GM/DL 2013 Unknown COMPREHENSIVE METABOLIC 27591 CHLORIDE 99 MMOL/L 2013 Unknown COMPREHENSIVE METABOLIC 51486 BILI TOT 0.5 MG/DL 2013 Unknown COMPREHENSIVE METABOLIC 19224 ALK PHOS 56 U/L 2013 Unknown COMPREHENSIVE METABOLIC 91515 SODIUM 138 MMOL/L 08/27 Unknown COMPREHENSIVE METABOLIC 88807 CREATININE 0.95 MG/DL 08/10 Unknown COMPREHENSIVE METABOLIC 95286 CALCIUM 9.8 MG/DL 2013 Unknown COMPREHENSIVE METABOLIC 83134 POTASSIUM 3.5 MMOL/L 08/27 Unknown COMPREHENSIVE METABOLIC 16333 PROT TOT 6.8 GM/DL 2013 Unknown COMPREHENSIVE METABOLIC 13555 Glucose 90 MG/DL 2013 Unknown COMPREHENSIVE METABOLIC 21250 BICARB 34 MMOL/L 2013 Unknown COMPREHENSIVE METABOLIC 36752 ANION GAP 5 MEQ/L 2013 Unknown LIPASE 16051 LIPASE 11 IU/L 07/21/2014 Unknown AMYLASE 51816 AMYLASE 39 IU/L 07/21/2014 Unknown HEMOGLOBIN A1C (GLYCOSYLATED) 5988551 A1C [facility] 10115-8 6.2 % 03/05/2013 Unknown THYROID STIMULATING HORMONE 94325 TSH 6.986 uIU/ML 03/05/2013 Unknown COMPLETE BLOOD COUNT 1454459 WBC 12.7 10e9/L 013 Unknown COMPLETE BLOOD COUNT 6299957 RBC 4.53 10e12/L 2012 Unknown COMPLETE BLOOD COUNT 3863892 HGB 14.7 g/dL 3 Unknown COMPLETE BLOOD COUNT 0887670 HCT DET 43.1 % 3 Unknown COMPLETE BLOOD COUNT 9008810 MCV 95.1 fL 3 Unknown COMPLETE BLOOD COUNT 1216498 MCH 32.5 pg 3 Unknown COMPLETE BLOOD COUNT 3506697 MCHC 34.1 g/dL 3 Unknown COMPLETE BLOOD COUNT 9487263 PLT 346 10e9/L 03/05/20 13 Unknown COMPLETE BLOOD COUNT 5369854 MPV 9.5 fL 3 Unknown COMPLETE BLOOD COUNT 8946012 CADEN % 67.6 % 3 Unknown COMPLETE BLOOD COUNT 0184419 LY % 22.1 % 3 Unknown COMPLETE BLOOD COUNT 1725562 MON % 6.6 % 3 Unknown COMPLETE BLOOD COUNT 5752575 EOS % 3.3 % 3 Unknown COMPLETE BLOOD COUNT 2208638 BASO % 0.4 % 3 Unknown COMPLETE BLOOD COUNT 9461968 RDW 14.0 % 3 Unknown COMPLETE BLOOD COUNT 5073008 ABS CADEN 8.59 10e9/L 013 Unknown COMPLETE BLOOD COUNT 8772798 ABS LYMPH 2.81 10e9/L 013 Unknown COMPLETE BLOOD COUNT 5189094 ABS MONO 0.84 10e9/L 013 Unknown COMPLETE BLOOD COUNT [id number] ABS EOS 0.42 10e9/L 013 Unknown COMPLETE BLOOD COUNT 8809310 ABS BASO 0.05 10e9/L 013 Unknown COMPLETE BLOOD COUNT 5280063 RDW-SD 46.0 fL 3 Unknown FREE T4 86132 FREE T4 1.14 NG/DL 03/05/2013 Unknown COMPREHENSIVE METABOLIC 00565 AST 17 U/L 2012 Unknown COMPREHENSIVE METABOLIC 03546 ALT 12 IU/L 2012 Unknown COMPREHENSIVE METABOLIC 39994 BUN 24 MG/DL 2012 Unknown COMPREHENSIVE METABOLIC 42495 ALBUMIN 4.2 GM/DL 2012 Unknown COMPREHENSIVE METABOLIC 36902 CHLORIDE 93 MMOL/L 2012 Unknown COMPREHENSIVE METABOLIC 16628 BILI TOT 0.5 MG/DL 2012 Unknown COMPREHENSIVE METABOLIC 88150 ALK PHOS 75 U/L 2012 Unknown COMPREHENSIVE METABOLIC 86728 SODIUM 141 MMOL/L 03/05 Unknown COMPREHENSIVE METABOLIC 34405 CREATININE 1.36 MG/DL 02/09 Unknown COMPREHENSIVE METABOLIC 94077 CALCIUM 9.2 MG/DL 2012 Unknown COMPREHENSIVE METABOLIC 43162 POTASSIUM 3.1 MMOL/L 03/05 Unknown COMPREHENSIVE METABOLIC 52267 PROT TOT 6.9 GM/DL 2012 Unknown COMPREHENSIVE METABOLIC 36753 Glucose 123 MG/DL 2012 Unknown COMPREHENSIVE METABOLIC 42433 BICARB 36 MMOL/L 2012 Unknown COMPREHENSIVE METABOLIC 09958 ANION GAP 12 MEQ/L 2012 Unknown GFR CALC 5668544 GFR AA 51.0L ML/MIN 03/05/2013 Unknow n GFR CALC 1585371 GFR NON-AA 42.0L ML/MIN 03/05/2013 Unkno wn COMPREHENSIVE METABOLIC 24872 AST 14 U/L 2012 Unknown COMPREHENSIVE METABOLIC 30217 ALT 11 IU/L 2012 Unknown COMPREHENSIVE METABOLIC 57825 BUN 16 MG/DL 2012 Unknown COMPREHENSIVE METABOLIC 15740 ALBUMIN 4.2 GM/DL 2012 Unknown COMPREHENSIVE METABOLIC 17278 CHLORIDE 98 MMOL/L 2012 Unknown COMPREHENSIVE METABOLIC 60964 BILI TOT 0.4 MG/DL 2012 Unknown COMPREHENSIVE METABOLIC 25338 ALK PHOS 77 U/L 2012 Unknown COMPREHENSIVE METABOLIC 78540 SODIUM 139 MMOL/L 09/25 Unknown COMPREHENSIVE METABOLIC 39665 CREATININE 0.86 MG/DL 09/10 Unknown COMPREHENSIVE METABOLIC 50329 CALCIUM 9.5 MG/DL 2012 Unknown COMPREHENSIVE METABOLIC 49398 POTASSIUM 3.8 MMOL/L 09/25 Unknown COMPREHENSIVE METABOLIC 79489 PROT TOT 6.8 GM/DL 2012 Unknown COMPREHENSIVE METABOLIC 71232 Glucose 91 MG/DL 2012 Unknown COMPREHENSIVE METABOLIC 19808 BICARB 32 MMOL/L 2012 Unknown COMPREHENSIVE METABOLIC 24735 ANION GAP 9 MEQ/L 2012 Unknown FREE T4 70098 FREE T4 0.98 NG/DL 09/25/2012 Unknown THYROID STIMULATING HORMONE 34155 TSH 1.736 uIU/ML 09/25/2012 Unknown C-REACTIVE PROTEIN (CRP) QUANT 28927 CRP 2.3 MG/DL 09/25/2012 Unknown COMPLETE BLOOD COUNT 3328354 WBC 11.9 10e9/L 013 Unknown COMPLETE BLOOD COUNT 1778991 RBC 4.87 10e12/L 2012 Unknown COMPLETE BLOOD COUNT 5672491 HGB 15.1 g/dL 3 Unknown COMPLETE BLOOD COUNT 0540203 HCT DET 44.8 % 3 Unknown COMPLETE BLOOD COUNT 2175723 MCV 92.0 fL 3 Unknown COMPLETE BLOOD COUNT 4999991 MCH 31.0 pg 3 Unknown COMPLETE BLOOD COUNT 6878770 MCHC 33.7 g/dL 3 Unknown COMPLETE BLOOD COUNT 3912362 PLT 343 10e9/L 09/25/19 13 Unknown COMPLETE BLOOD COUNT 1720557 MPV 9.0 fL 3 Unknown COMPLETE BLOOD COUNT 6353661 CADEN % 68.2 % 3 Unknown COMPLETE BLOOD COUNT 5150894 LY % 22.4 % 3 Unknown COMPLETE BLOOD COUNT 8269595 MON % 6.4 % 3 Unknown COMPLETE BLOOD COUNT 6156771 EOS % 2.7 % 3 Unknown COMPLETE BLOOD COUNT 6594777 BASO % 0.3 % 3 Unknown COMPLETE BLOOD COUNT 9204594 RDW 13.8 % 3 Unknown COMPLETE BLOOD COUNT 8869555 ABS CADEN 8.12 10e9/L 013 Unknown COMPLETE BLOOD COUNT [id number] ABS LYMPH 2.67 10e9/L 013 Unknown COMPLETE BLOOD COUNT 4831726 ABS MONO 0.76 10e9/L 013 Unknown COMPLETE BLOOD COUNT [id number] ABS EOS 0.32 10e9/L 013 Unknown COMPLETE BLOOD COUNT 6543191 ABS BASO 0.04 10e9/L 013 Unknown COMPLETE BLOOD COUNT 7963001 RDW-SD 45.6 fL 3 Unknown GFR CALC 6946019 GFR AA >60 ML/MIN 09/25/2012 Unknown GFR CALC 3792808 GFR NON-AA >60 ML/MIN 09/25/2012 Unknown ERYTHROCYTE SEDIMENTATION RATE 84691 ESR 19 MM/HR 05/06/2012 Unknown VITAMIN B 12 FOLIC ACID 19668|20858 VIT B 12 922 PG/ML 04/11 Unknown VITAMIN B 12 FOLIC ACID 17352|31694 FOLIC ACID 13.6 NG/ML Unknown URIC ACID 46650 URIC ACID 7.8 MG/DL 05/06/2012 Unknown COMPLETE BLOOD COUNT 70428 WBC 11.9 10e9/L 012 Unknown COMPLETE BLOOD COUNT 28688 RBC 5.30 10e12/L 2011 Unknown COMPLETE BLOOD COUNT 44882 HGB 16.6 g/dL 2 Unknown COMPLETE BLOOD COUNT 79671 HCT DET 47.2 % 2 Unknown COMPLETE BLOOD COUNT 27364 MCV 89.1 fL 2 Unknown COMPLETE BLOOD COUNT 01244 MCH 31.3 pg 2 Unknown COMPLETE BLOOD COUNT 01240 MCHC 35.2 g/dL 2 Unknown COMPLETE BLOOD COUNT 96963 PLT 362 10e9/L 05/06/20 12 Unknown COMPLETE BLOOD COUNT 55092 MPV 9.4 fL 2 Unknown COMPLETE BLOOD COUNT 68242 CADEN % 68.2 % 2 Unknown COMPLETE BLOOD COUNT 48255 LY % 22.0 % 2 Unknown COMPLETE BLOOD COUNT 34036 MON % 6.9 % 2 Unknown COMPLETE BLOOD COUNT 65378 EOS % 2.6 % 2 Unknown COMPLETE BLOOD COUNT 92674 BASO % 0.3 % 2 Unknown COMPLETE BLOOD COUNT 89425 RDW 12.8 % 2 Unknown COMPLETE BLOOD COUNT 15446 ABS CADEN 8.12 10e9/L 012 Unknown COMPLETE BLOOD COUNT 08650 ABS LYMPH 2.62 10e9/L 012 Unknown COMPLETE BLOOD COUNT 67535 ABS MONO 0.82 10e9/L 012 Unknown COMPLETE BLOOD COUNT 98408 ABS EOS 0.31 10e9/L 012 Unknown COMPLETE BLOOD COUNT 42218 ABS BASO 0.04 10e9/L 012 Unknown COMPLETE BLOOD COUNT 13793 RDW-SD 41.5 fL 2 Unknown GFR CALC 7268326 GFR AA >60 ML/MIN 05/06/2012 Unknown GFR CALC 8738841 GFR NON-AA 58.0L ML/MIN 05/06/2012 Unkno wn FREE T4 24294 FREE T4 1.15 NG/DL 05/06/2012 Unknown THYROID STIMULATING HORMONE 15674 TSH 1.568 uIU/ML 05/06/2012 Unknown COMPREHENSIVE METABOLIC 22343 AST 20 U/L 2011 Unknown COMPREHENSIVE METABOLIC 43018 ALT 12 IU/L 2011 Unknown COMPREHENSIVE METABOLIC 24043 BUN 20 MG/DL 2011 Unknown COMPREHENSIVE METABOLIC 55776 ALBUMIN 4.5 GM/DL 2011 Unknown COMPREHENSIVE METABOLIC 29829 CHLORIDE 91 MMOL/L 2011 Unknown COMPREHENSIVE METABOLIC 35747 BILI TOT 0.4 MG/DL 2011 Unknown COMPREHENSIVE METABOLIC 87295 ALK PHOS 73 U/L 2011 Unknown COMPREHENSIVE METABOLIC 63412 SODIUM 139 MMOL/L 05/06 Unknown COMPREHENSIVE METABOLIC 04305 CREATININE 1.02 MG/DL 04/11 Unknown COMPREHENSIVE METABOLIC 43365 CALCIUM 9.7 MG/DL 2011 Unknown COMPREHENSIVE METABOLIC 26954 POTASSIUM 3.1 MMOL/L 05/06 Unknown COMPREHENSIVE METABOLIC 60232 PROT TOT 7.3 GM/DL 2011 Unknown COMPREHENSIVE METABOLIC 57956 Glucose 118 MG/DL 2011 Unknown COMPREHENSIVE METABOLIC 80473 BICARB 33 MMOL/L 2011 Unknown COMPREHENSIVE METABOLIC 09822 ANION GAP 15 MEQ/L 2011 Unknown Procedures Procedure Codes Date URINALYSIS NONAUTO W/O SCOPE CPT-4: 56785 09/30/2018 MICROALBUMIN QUANTITATIVE CPT-4: 36507 09/30/2018 CEFTRIAXONE SODIUM INJECTION CPT-4: J0696 06/19/2018 THER/PROPH/DIAG INJ SC/IM CPT-4: 49365 06/19/2018 CEFTRIAXONE SODIUM INJECTION CPT-4: J0696 06/17/2018 THER/PROPH/DIAG INJ SC/IM CPT-4: 31646 06/17/2018 THER/PROPH/DIAG INJ SC/IM CPT-4: 67837 05/16/2018 KETOROLAC TROMETHAMINE INJ CPT-4: J1885 05/16/2018 ONDANSETRON HCL INJECTION CPT-4: J2405 05/16/2018 THER/PROPH/DIAG INJ SC/IM CPT-4: 06214 05/16/2018 ROUTINE VENIPUNCTURE CPT-4: 32708 03/20/2018 COMPREHEN METABOLIC PANEL CPT-4: 38549 03/20/2018 DEXAMETHASONE SODIUM PHOS CPT-4: J1100 02/11/2018 THER/PROPH/DIAG INJ SC/IM CPT-4: 00097 02/11/2018 TRIAMCINOLONE ACET INJ NOS CPT-4: J3301 02/11/2018 CEFTRIAXONE SODIUM INJECTION CPT-4: J0696 02/01/2018 THER/PROPH/DIAG INJ SC/IM CPT-4: 78221 02/01/2018 CEFTRIAXONE SODIUM INJECTION CPT-4: J0696 01/30/2018 THER/PROPH/DIAG INJ SC/IM CPT-4: 00543 01/30/2018 ROUTINE VENIPUNCTURE CPT-4: 13944 12/10/2017 ASSAY OF FREE THYROXINE CPT-4: 87135 12/10/2017 ASSAY THYROID STIM HORMONE CPT-4: 61072 12/10/2017 COMPREHEN METABOLIC PANEL CPT-4: 17701 12/10/2017 COMPLETE CBC W/AUTO DIFF WBC CPT-4: 74004 12/10/2017 LIPID PANEL CPT-4: 58769 12/10/2017 A1C HPLC CPT-4: 00363 12/10/2017 CEFTRIAXONE SODIUM INJECTION CPT-4: J0696 12/10/2017 THER/PROPH/DIAG INJ SC/IM CPT-4: 73487 12/10/2017 CEFTRIAXONE SODIUM INJECTION CPT-4: J0696 12/07/2017 THER/PROPH/DIAG INJ SC/IM CPT-4: 21836 12/07/2017 DEXAMETHASONE SODIUM PHOS CPT-4: J1100 12/07/2017 THER/PROPH/DIAG INJ SC/IM CPT-4: 36225 12/07/2017 CEFTRIAXONE SODIUM INJECTION CPT-4: J0696 10/08/2017 THER/PROPH/DIAG INJ SC/IM CPT-4: 82708 10/08/2017 CEFTRIAXONE SODIUM INJECTION CPT-4: J0696 09/21/2017 THER/PROPH/DIAG INJ SC/IM CPT-4: 63182 09/21/2017 CEFTRIAXONE SODIUM INJECTION CPT-4: J0696 09/20/2017 THER/PROPH/DIAG INJ SC/IM CPT-4: 45348 09/20/2017 REMOVAL OF NAIL PLATE CPT-4: 03488 08/29/2017 THER/PROPH/DIAG INJ SC/IM CPT-4: 65690 08/29/2017 TRIAMCINOLONE ACET INJ NOS CPT-4: J3301 08/29/2017 CEFTRIAXONE SODIUM INJECTION CPT-4: J0696 08/29/2017 THER/PROPH/DIAG INJ SC/IM CPT-4: 81985 08/29/2017 DESTRUCT PREMALG LESION (Cryosurgery) CPT-4: 90015 ROUTINE VENIPUNCTURE CPT-4: 30574 06/27/2017 ASSAY OF FREE THYROXINE CPT-4: 69240 06/27/2017 ASSAY THYROID STIM HORMONE CPT-4: 64327 06/27/2017 COMPREHEN METABOLIC PANEL CPT-4: 86397 06/27/2017 COMPLETE CBC W/AUTO DIFF WBC CPT-4: 25667 06/27/2017 EXC TR-EXT B9+REECE 0.5 CM< CPT-4: 41660 01/24/2017 THER/PROPH/DIAG INJ SC/IM CPT-4: 76213 08/02/2016 DEXAMETHASONE SODIUM PHOS CPT-4: J1100 08/02/2016 DESTRUCT PREMALG LESION (Cryosurgery) CPT-4: 51563 EXC TR-EXT B9+REECE 0.5 CM< CPT-4: 73473 08/01/2016 AEROBIC WOUND CULTURE & STN CPT-4: 98295 07/06/2016 CEFTRIAXONE SODIUM INJECTION CPT-4: J0696 05/25/2016 THER/PROPH/DIAG INJ SC/IM CPT-4: 94989 05/25/2016 THER/PROPH/DIAG INJ SC/IM CPT-4: 23667 04/26/2016 DEXAMETHASONE SODIUM PHOS CPT-4: J1100 04/26/2016 CEFTRIAXONE SODIUM INJECTION CPT-4: J0696 04/26/2016 THER/PROPH/DIAG INJ SC/IM CPT-4: 73031 04/26/2016 THER/PROPH/DIAG INJ SC/IM CPT-4: 65721 02/09/2016 TRIAMCINOLONE ACET INJ NOS CPT-4: J3301 02/09/2016 URINALYSIS NONAUTO W/O SCOPE CPT-4: 68642 01/24/2016 URINE CULTURE/ COLONY COUNT CPT-4: 30654 01/24/2016 THER/PROPH/DIAG INJ SC/IM CPT-4: 60961 12/08/2015 TRIAMCINOLONE ACET INJ NOS CPT-4: J3301 12/08/2015 THER/PROPH/DIAG INJ SC/IM CPT-4: 02562 10/07/2015 TRIAMCINOLONE ACET INJ NOS CPT-4: J3301 10/07/2015 DESTRUCT PREMALG LESION (Cryosurgery) CPT-4: 54215 THER/PROPH/DIAG INJ SC/IM CPT-4: 74262 03/16/2015 METHYLPREDNISOLONE 40 MG INJ CPT-4: J1030 03/16/2015 DESTRUCT PREMALG LESION (Cryosurgery) CPT-4: 69916 THER/PROPH/DIAG INJ SC/IM CPT-4: 80956 09/11/2014 METHYLPREDNISOLONE 40 MG INJ CPT-4: J1030 09/11/2014 TRIAMCINOLONE ACET INJ NOS CPT-4: J3301 09/11/2014 CEFTRIAXONE SODIUM INJECTION CPT-4: J0696 09/11/2014 THER/PROPH/DIAG INJ SC/IM CPT-4: 78568 09/11/2014 ROUTINE VENIPUNCTURE CPT-4: 56238 08/27/2014 COMPREHEN METABOLIC PANEL CPT-4: 22024 08/27/2014 COMPLETE CBC W/AUTO DIFF WBC CPT-4: 57630 08/27/2014 LIPID PANEL CPT-4: 98745 08/27/2014 ROUTINE VENIPUNCTURE CPT-4: 19555 07/21/2014 ASSAY OF AMYLASE CPT-4: 09768 07/21/2014 ASSAY OF LIPASE CPT-4: 63750 07/21/2014 THER/PROPH/DIAG INJ SC/IM CPT-4: 21890 07/15/2014 TRIAMCINOLONE ACET INJ NOS CPT-4: J3301 07/15/2014 ROUTINE VENIPUNCTURE CPT-4: 80962 05/14/2014 ASSAY OF FREE THYROXINE CPT-4: 34786 05/14/2014 ASSAY THYROID STIM HORMONE CPT-4: 80928 05/14/2014 COMPREHEN METABOLIC PANEL CPT-4: 79737 05/14/2014 COMPLETE CBC W/AUTO DIFF WBC CPT-4: 95378 05/14/2014 LIPID PANEL CPT-4: 19512 05/14/2014 CEFTRIAXONE SODIUM INJECTION CPT-4: J0696 04/21/2014 THER/PROPH/DIAG INJ SC/IM CPT-4: 52065 04/21/2014 THER/PROPH/DIAG INJ SC/IM CPT-4: 86894 04/21/2014 TRIAMCINOLONE ACET INJ NOS CPT-4: J3301 04/21/2014 THER/PROPH/DIAG INJ SC/IM CPT-4: 21061 03/04/2014 METHYLPREDNISOLONE 40 MG INJ CPT-4: J1030 03/04/2014 TRIAMCINOLONE ACET INJ NOS CPT-4: J3301 03/04/2014 CEFTRIAXONE SODIUM INJECTION CPT-4: J0696 03/04/2014 THER/PROPH/DIAG INJ SC/IM CPT-4: 97923 03/04/2014 TDAP VACCINE 7 YRS/> IM CPT-4: 93890 02/27/2014 IMMUNIZATION ADMIN CPT-4: 65917 02/27/2014 DESTRUCT PREMALG LESION (Cryosurgery) CPT-4: 66825 DESTRUCT PREMALG LES 2-14 CPT-4: 77940 01/13/2014 THER/PROPH/DIAG INJ SC/IM CPT-4: 99527 10/21/2013 METHYLPREDNISOLONE 40 MG INJ CPT-4: J1030 10/21/2013 TRIAMCINOLONE ACET INJ NOS CPT-4: J3301 10/21/2013 CEFTRIAXONE SODIUM INJECTION CPT-4: J0696 08/27/2013 THER/PROPH/DIAG INJ SC/IM CPT-4: 44367 08/27/2013 THER/PROPH/DIAG INJ SC/IM CPT-4: 20567 08/27/2013 METHYLPREDNISOLONE 40 MG INJ CPT-4: J1030 08/27/2013 TRIAMCINOLONE ACET INJ NOS CPT-4: J3301 08/27/2013 THER/PROPH/DIAG INJ SC/IM CPT-4: 68000 06/23/2013 METHYLPREDNISOLONE 40 MG INJ CPT-4: J1030 06/23/2013 TRIAMCINOLONE ACET INJ NOS CPT-4: J3301 06/23/2013 THER/PROPH/DIAG INJ SC/IM CPT-4: 68879 05/26/2013 METHYLPREDNISOLONE 40 MG INJ CPT-4: J1030 05/26/2013 TRIAMCINOLONE ACET INJ NOS CPT-4: J3301 05/26/2013 ROUTINE VENIPUNCTURE CPT-4: 33857 03/05/2013 ASSAY OF FREE THYROXINE CPT-4: 55642 03/05/2013 ASSAY THYROID STIM HORMONE CPT-4: 67743 03/05/2013 COMPREHEN METABOLIC PANEL CPT-4: 94825 03/05/2013 COMPLETE CBC W/AUTO DIFF WBC CPT-4: 12775 03/05/2013 A1C GLYCOSYLATED HEMOGLOBIN TEST CPT-4: 87227 013 DRAIN/INJECT JOINT/BURSA CPT-4: 36728 12/04/2012 METHYLPREDNISOLONE 40 MG INJ CPT-4: J1030 12/04/2012 TRIAMCINOLONE ACET INJ NOS CPT-4: J3301 12/04/2012 CEFTRIAXONE SODIUM INJECTION CPT-4: J0696 11/21/2012 THER/PROPH/DIAG INJ SC/IM CPT-4: 22465 11/21/2012 THER/PROPH/DIAG INJ SC/IM CPT-4: 04322 10/14/2012 METHYLPREDNISOLONE 40 MG INJ CPT-4: J1030 10/14/2012 TRIAMCINOLONE ACET INJ NOS CPT-4: J3301 10/14/2012 URINALYSIS NONAUTO W/O SCOPE CPT-4: 55896 09/27/2012 ROUTINE VENIPUNCTURE CPT-4: 43847 09/25/2012 ASSAY OF FREE THYROXINE CPT-4: 39511 09/25/2012 ASSAY THYROID STIM HORMONE CPT-4: 49697 09/25/2012 COMPREHEN METABOLIC PANEL CPT-4: 49559 09/25/2012 COMPLETE CBC W/AUTO DIFF WBC CPT-4: 85767 09/25/2012 C-REACTIVE PROTEIN CPT-4: 86089 09/25/2012 THER/PROPH/DIAG INJ SC/IM CPT-4: 21590 08/29/2012 METHYLPREDNISOLONE 40 MG INJ CPT-4: J1030 08/29/2012 TRIAMCINOLONE ACET INJ NOS CPT-4: J3301 08/29/2012 DESTRUCT PREMALG LESION (Cryosurgery) CPT-4: 27212 THER/PROPH/DIAG INJ SC/IM CPT-4: 64180 05/06/2012 METHYLPREDNISOLONE 40 MG INJ CPT-4: J1030 05/06/2012 TRIAMCINOLONE ACET INJ NOS CPT-4: J3301 05/06/2012 VITAMIN B 12 FOLIC ACID CPT-4: 57288|98759 05/06/2012 RBC SED RATE AUTOMATED CPT-4: 28280 05/06/2012 ROUTINE VENIPUNCTURE CPT-4: 69083 05/06/2012 ASSAY OF FREE THYROXINE CPT-4: 82026 05/06/2012 ASSAY THYROID STIM HORMONE CPT-4: 27213 05/06/2012 COMPREHEN METABOLIC PANEL CPT-4: 25388 05/06/2012 COMPLETE CBC W/AUTO DIFF WBC CPT-4: 39555 05/06/2012 ASSAY OF BLOOD/URIC ACID CPT-4: 47460 05/06/2012 THER/PROPH/DIAG INJ SC/IM CPT-4: 07691 03/19/2012 KETOROLAC TROMETHAMINE INJ CPT-4: J1885 03/19/2012 KETOROLAC TROMETHAMINE INJ CPT-4: J1885 01/30/2012 THER/PROPH/DIAG INJ SC/IM CPT-4: 29329 01/30/2012 PROMETHAZINE HCL INJECTION CPT-4: J2550 01/30/2012 THER/PROPH/DIAG INJ SC/IM CPT-4: 79784 01/24/2012 METHYLPREDNISOLONE 40 MG INJ CPT-4: J1030 01/24/2012 TRIAMCINOLONE ACET INJ NOS CPT-4: J3301 01/24/2012 THER/PROPH/DIAG INJ SC/IM CPT-4: 26775 09/13/2011 KETOROLAC TROMETHAMINE INJ CPT-4: J1885 09/13/2011 THER/PROPH/DIAG INJ SC/IM CPT-4: 01204 09/13/2011 PROMETHAZINE HCL INJECTION CPT-4: J2550 09/13/2011 CEFTRIAXONE SODIUM INJECTION CPT-4: J0696 07/20/2011 THER/PROPH/DIAG INJ SC/IM CPT-4: 05570 07/20/2011 THER/PROPH/DIAG INJ SC/IM CPT-4: 24079 07/20/2011 METHYLPREDNISOLONE INJECTION CPT-4: J2930 07/20/2011 URINALYSIS NONAUTO W/O SCOPE CPT-4: 46770 05/09/2011 CEFTRIAXONE SODIUM INJECTION CPT-4: J0696 05/09/2011 THER/PROPH/DIAG INJ SC/IM CPT-4: 61870 05/09/2011 THER/PROPH/DIAG INJ SC/IM CPT-4: 88375 05/09/2011 PROMETHAZINE HCL INJECTION CPT-4: J2550 05/09/2011 HYDRATION IV INFUSION INIT CPT-4: 89615 05/09/2011 DESTRUCT PREMALG LESION (Cryosurgery) CPT-4: 93940 DESTRUCT PREMALG LES 2-14 CPT-4: 01139 07/19/2010 REMOVAL OF SKIN TAGS <W/15 CPT-4: 25212 05/30/2010 THER/PROPH/DIAG INJ SC/IM CPT-4: 15761 04/05/2010 CEFTRIAXONE SODIUM INJECTION CPT-4: J0696 04/05/2010 TRIAMCINOLONE ACET INJ NOS CPT-4: J3301 04/05/2010 METHYLPREDNISOLONE 40 MG INJ CPT-4: J1030 04/05/2010 THER/PROPH/DIAG INJ SC/IM CPT-4: 17701 04/05/2010 TRIAMCINOLONE ACET INJ NOS CPT-4: J3301 03/09/2010 METHYLPREDNISOLONE 40 MG INJ CPT-4: J1030 03/09/2010 THER/PROPH/DIAG INJ SC/IM CPT-4: 93594 03/09/2010 THER/PROPH/DIAG INJ SC/IM CPT-4: 91842 03/09/2010 CEFTRIAXONE SODIUM INJECTION CPT-4: J0696 03/09/2010 Vital Signs Date Vital 05/28/2019 Blood Pressure 1: 126/82 Code: 8480-6 BMI: 35.0 Code: 75808-3 Heart Rate 1: 88 bpm Height: 5'4" [...] 1: 128/90 Code: 8480-6 BMI: 37.2 Code: 52595-7 Heart Rate 1: 84 bpm Height: 5'4" Respiratory Rate: 20 bpm SpO2: 95% Tempera ture: 36.6 (C) / 97.8 (F) Weight: 217 lbs 08/27/2018 Blood Pressure 1: 128/88 Code: 8480-6 BMI: 38.3 Code: 98126-0 Heart Rate 1: 84 bpm Height: 5'4" [...] 1: 119/72 Code: 8480-6 BMI: 37.4 Code: 16162-0 Heart Rate 1: 82 bpm Height: 5'4" Respiratory Rate: 12 bpm SpO2: 94% Tempera ture: 35.2 (C) / 95.4 (F) Weight: 218 lbs 12/18/2017 Blood Pressure 1: 128/86 Code: 8480-6 BMI: 37.8 Code: 65811-0 Heart Rate 1: 84 bpm Height: 5'4" [...] 1: 128/82 Code: 8480-6 BMI: 35.5 Code: 41268-0 Heart Rate 1: 84 bpm Height: 5'4" [...] 1: 128/82 Code: 8480-6 BMI: 30.2 Code: 30594-4 Heart Rate 1: 80 bpm Height: 5'4" [...] 1: 128/86 Code: 8480-6 BMI: 32.8 Code: 72242-7 Heart Rate 1: 66 bpm Height: 5'4" Respiratory Rate: 18 bpm Temperature: 36 .3 (C) / 97.3 (F) Weight: 191 lbs 06/23/2013 Blood Pressure 1: 132/94 Code: 8480-6 BMI: 34.0 Code: 98100-1 Heart Rate 1: 84 bpm Height: 5'4" Respiratory Rate: 20 bpm Temperature: 36 .8 (C) / 98.2 (F) Weight: 198 lbs 05/26/2013 Blood Pressure 1: 114/80 Code: 8480-6 BMI: 35.0 Code: 12192-3 Heart Rate 1: 80 bpm Height: 5'4" Respiratory Rate: 20 bpm Temperature: 36 .4 (C) / 97.6 (F) Weight: 204 lbs 04/16/2013 Blood Pressure 1: 114/82 Code: 8480-6 BMI: 36.7 Code: 72260-5 Heart Rate 1: 84 bpm Height: 5'4" Respiratory Rate: 20 bpm Temperature: 36 .7 (C) / 98.0 (F) Weight: 214 lbs 03/05/2013 Blood Pressure 1: 136/90 Code: 8480-6 BMI: 37.1 Code: 08609-0 Heart Rate 1: 84 bpm Height: 5'4" [...] 1: 168/114 Code: 8480-6 BMI: 36.2 Code: 66427-8 Heart Rate 1: 104 bpm Height: 5'4" Respiratory Rate: 20 bpm Temperature: 36 .8 (C) / 98.2 (F) Weight: 211 lbs 11/22/2012 Blood Pressure 1: 128/90 Code: 8480-6 Heart Rate 1: 88 bpm Respiratory Rate: 20 bpm SpO2: 96% Temperature: 36.8 (C) / 98.2 (F) 11/21/2012 Blood Pressure 1: 146/100 Code: 8480-6 BMI: 35.7 Code: 07706-0 Heart Rate 1: 96 bpm Height: 5'4" [...] 1: 138/100 Code: 8480-6 BMI: 35.7 Code: 98038-7 Heart Rate 1: 96 bpm Height: 5'4" Respiratory Rate: 20 bpm Temperature: 36 .8 (C) / 98.2 (F) Weight: 208 lbs 05/06/2012 Blood Pressure 1: 154/102 Code: 8480-6 BMI: 34.7 Code: 19576-8 Heart Rate 1: 116 bpm Height: 5'4" Respiratory Rate: 20 bpm Temperature: 36 .8 (C) / 98.2 (F) Weight: 202 lbs 04/03/2012 Blood Pressure 1: 134/94 Code: 8480-6 BMI: 34.8 Code: 38238-8 Heart Rate 1: 108 bpm Height: 5'4" Respiratory Rate: 20 bpm Temperature: 36 .8 (C) / 98.2 (F) Weight: 203 lbs 03/19/2012 Blood Pressure 1: 148/106 Code: 8480-6 BMI: 35.0 Code: 77756-1 Heart Rate 1: 100 bpm Height: 5'4" Respiratory Rate: 20 bpm Temperature: 36 .6 (C) / 97.9 (F) Weight: 204 lbs 02/22/2012 Blood Pressure 1: 146/94 Code: 8480-6 He art Rate 1: 88 bpm 02/21/2012 Blood Pressure 1: 172/120 Code: 8480-6 B lood Pressure 2: 152/106 Code: 8480-6 Heart Rate 1: 116 bpm 02/20/2012 Blood Pressure 1: 160/100 Code: 8480-6 BMI: 32.0 Code: 46048-0 Heart Rate 1: 84 bpm Height: 5'7" Temperature: 36.5 (C) / 97.7 (F) Weight: 204 lbs 01/30/2012 Blood Pressure 1: 152/110 Code: 8480-6 BMI: 32.0 Code: 09176-9 Heart Rate 1: 116 bpm Height: 5'7" Respiratory Rate: 20 bpm Temperature: 37 .0 (C) / 98.6 (F) Weight: 204 lbs 01/24/2012 Blood Pressure 1: 146/100 Code: 8480-6 BMI: 32.0 Code: 01337-0 Heart Rate 1: 100 bpm Height: 5'7" Respiratory Rate: 20 bpm Temperature: 36 .7 (C) / 98.0 (F) Weight: 204 lbs 01/10/2012 Blood Pressure 1: 156/94 Code: 8480-6 BMI: 32.6 Code: 44303-9 Heart Rate 1: 72 bpm Height: 5'7" Respiratory Rate: 20 bpm Temperature: 36 .8 (C) / 98.2 (F) Weight: 208 lbs 12/11/2011 Blood Pressure 1: 146/100 Code: 8480-6 Heart Rat e 1: 116 bpm Height: 5'7" Respiratory Rate: 20 bpm Temperature: 36.9 (C) / 98.4 (F) We ight: 11/09/2011 Blood Pressure 1: 148/96 Code: 8480-6 BMI: 32.1 Code: 65203-7 Heart Rate 1: 116 bpm Height: 5'7" Respiratory Rate: 20 bpm Temperature: 36 .7 (C) / 98.0 (F) Weight: 205 lbs 09/13/2011 Blood Pressure 1: 126/88 Code: 8480-6 Heart Rate 1: 88 bpm Height: 5'7" Respiratory Rate: 20 bpm Temperature: 36.9 (C) / 98.4 (F) We ight: 08/31/2011 Blood Pressure 1: 118/82 Code: 8480-6 BMI: 32.0 Code: 03245-9 Heart Rate 1: 80 bpm Height: 5'7" Temperature: 36.4 (C) / 97.6 (F) Weight: 204 lbs 07/06/2011 Blood Pressure 1: 128/86 Code: 8480-6 BMI: 30.9 Code: 86489-2 Heart Rate 1: 92 bpm Height: 5'7" Respiratory Rate: 20 bpm Temperature: 36 .9 (C) / 98.4 (F) Weight: 197 lbs 06/06/2011 Blood Pressure 1: 112/74 Code: 8480-6 BMI: 31.0 Code: 51260-1 Heart Rate 1: 72 bpm Height: 5'7" [...] 1: 128/92 Code: 8480-6 BMI: 33.6 Code: 74250-7 Heart Rate 1: 104 bpm Height: 5'4" [...] woman exam (40-65 years) 10/17/2016 Patient ov [facility] for mamogram---had history of breast biopsy sinus [...] Check-up Encounters Encounter Performer Location Codes Date ([id number]) OFFICE/OUTPATIENT VISIT EST Diagnosis: Essential (primary) hypertension[ICD10: I10] Diagnosis: Fall from bed, sequela[ICD10: W06.XXXS] María Elenagael MONTERO APARNAGAEL LucioJj TD [facility] CPT-4: 79209 05/28/2019 ([id number]) NURSE/OUTPATIENT VISIT EST Diagnosis: Essential (primary) hypertension[ICD10: I10] María Elenamarcella Waydawn MONTEROMARÍA ELENA [facility]oiJj [facility] CPT-4: 95159 05/19/2019 ([id number]) OFFICE/OUTPATIENT VISIT EST Diagnosis: Essential (primary) hypertension[ICD10: I10] Diagnosis: Type 2 diabetes mellitus with hyperglycemia[ICD10: E11.65] Diagnosis: Intervertebral disc disorders with radiculopathy, 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] Diagnosis: Hormone replacement therapy[ICD10: Z79.890] María Elena Seamusdawn MONTEROMARÍA ELENA [facility] CPT-4: 04605 01/22/2019 ([id number]) OFFICE/OUTPATIENT VISIT EST Diagnosis: Essential (primary) hypertension[ICD10: I10] Diagnosis: Type 2 diabetes mellitus with hyperglycemia[ICD10: E11.65] María Elena Appiah MARÍA ELENA [facility]ioJj [facility] CPT-4: 71849 09/30/2018 ([id number]) OFFICE/OUTPATIENT VISIT EST Diagnosis: Pain in left elbow[ICD10: M25.522] Diagnosis: Acute stress reaction[ICD10: F43.0] Diagnosis: Primary insomnia[ICD10: F51.01] Diagnosis: Abnormal weight gain[ICD10: R63.5] María Elena JENA [facility]ioJj [facility] CPT-4: 65370 08/27/2018 ([id number]) OFFICE/OUTPATIENT VISIT EST Diagnosis: Acute recurrent sinusitis, unspecified[ICD10: J01.91] Diagnosis: Follicular disorder, unspecified[ICD10: L73.9] Diagnosis: Tinea corporis[ICD10: B35.4] María Elena JUARES [facility]ioJj [facility] CPT-4: 37727 08/09/2018 ([id number]) OFFICE/OUTPATIENT VISIT EST Diagnosis: Tinea corporis[ICD10: B35.4] Diagnosis: Anxiety disorder, unspecified[ICD10: F41.9] Diagnosis: Menopausal and female climacteric states[ICD10: N95.1] María Elena APPIAH DO [facility] CPT-4: 91379 07/22/2018 ([id number]) NURSE/OUTPATIENT VISIT EST Diagnosis: Cellulitis of right toe[ICD10: L03.031] María Elena APPIAH DO [facility] CPT-4: 07334 06/19/2018 ([id number]) OFFICE/OUTPATIENT VISIT EST Diagnosis: Cellulitis of right toe[ICD10: L03.031] Kathleen APPIAH DO [facility] CPT-4: 07482 06/17/2018 ([id number]) OFFICE/OUTPATIENT VISIT EST Diagnosis: Migraine without aura, intractable, without status migrainosus[ICD10: G43.019] Diagnosis: Zoster without complications[ICD10: B02.9] Kathleen APPIAH DO [facility] CPT-4: 98582 05/16/2018 ([id number]) OFFICE/OUTPATIENT VISIT EST Diagnosis: Cellulitis of right lower limb[ICD10: L03.115] Kathleen APPIAH DO [facility] CPT-4: 17544 03/20/2018 ([id number]) OFFICE/OUTPATIENT VISIT EST Diagnosis: Cellulitis of right lower limb[ICD10: L03.115] Kathleen APPIAH DO [facility] CPT-4: 71264 03/18/2018 ([id number]) OFFICE/OUTPATIENT VISIT EST Diagnosis: Cellulitis of right lower limb[ICD10: L03.115] Kathleen APPIAH DO [facility] CPT-4: 58295 03/15/2018 ([id number]) OFFICE/OUTPATIENT VISIT EST Diagnosis: Acute sinusitis, unspecified[ICD10: J01.90] Kathleen APPIAH DO [facility] CPT-4: 21800 02/11/2018 ([id number]) NURSE/OUTPATIENT VISIT EST Diagnosis: Otitis media, unspecified, right ear[ICD10: H66.91] María Elena APPIAH [facility] CPT-4: 61593 02/01/2018 ([id number]) OFFICE/OUTPATIENT VISIT EST Diagnosis: Acute suppurative otitis media without spontaneous rupture of ear drum, left ear[ICD10: H66.002] Diagnosis: Abnormal weight gain[ICD10: R63.5] Diagnosis: Intervertebral disc disorders with radiculopathy, 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] Kathleen APPIAH [facility] CPT-4: 99 214 01/30/2018 ([id number]) PREV VISIT EST AGE 40-64 Diagnosis: Encounter for general adult medical examination without abnormal findings[ICD10: Z00.00] Diagnosis: Essential (primary) hypertension[ICD10: I10] Diagnosis: Mixed hyperlipidemia[ICD10: E78.2] Diagnosis: Type 2 diabetes mellitus with hyperglycemia[ICD10: E11.65] Diagnosis: 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] María Elena APPIAH [facility] CPT-4: 82739 12/18/2017 ([id number]) OFFICE/OUTPATIENT VISIT EST Diagnosis: Cellulitis of right toe[ICD10: L03.031] Diagnosis: Mixed hyperlipidemia[ICD10: E78.2] Diagnosis: Essential (primary) hypertension[ICD10: I10] Diagnosis: Hyperglycemia, unspecified[ICD10: R73.9] Diagnosis: Nontoxic goiter, 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] María Elena APPIAH [facility] CPT-4: 30725 12/10/2017 ([id number]) OFFICE/OUTPATIENT VISIT EST Diagnosis: Cellulitis of right toe[ICD10: L03.031] Diagnosis: Acute sinusitis, unspecified[ICD10: J01.90] Kathleen APPIAH DO [facility] CPT-4: 35679 12/07/2017 OFFICE/OUTPATIENT VISIT EST Diagnosis: Acute maxillary sinusitis, unspecified[ICD10: J01.00] Kathleen APPIAH DO [facility] CPT-4: 49667 10/08/2017 ([id number]) OFFICE/OUTPATIENT VISIT EST Diagnosis: Cellulitis of left toe[ICD10: L03.032] María Elena APPIAH DO [facility] CPT-4: 86200 09/21/2017 ([id number]) OFFICE/OUTPATIENT VISIT EST Diagnosis: Insomnia, unspecified[ICD10: G47.00] Diagnosis: Major depressive disorder, single episode, unspecified[ICD10: F32.9] Diagnosis: Anxiety disorder, unspecified[ICD10: F41.9] Diagnosis: Cellulitis of left toe[ICD10: L03.032] Diagnosis: Snoring[ICD10: R06.83] Kathleen APPIAH DO [facility] CPT-4: 09352 09/20/2017 ([id number]) OFFICE/OUTPATIENT VISIT EST Diagnosis: Cellulitis of left toe[ICD10: L03.032] María Elena APPIAH DO [facility] CPT-4: 46524 07/19/2017 OFFICE/OUTPATIENT VISIT EST Diagnosis: Chronic sinusitis, unspecified[ICD10: J32.9] Diagnosis: Generalized hyperhidrosis[ICD10: R61] Kathleen APPIAH DO [facility] CPT-4: 51510 06/27/2017 ([id number]) OFFICE/OUTPATIENT VISIT EST Diagnosis: Intervertebral disc disorders with radiculopathy, 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] Diagnosis: Primary insomnia[ICD10: F51.01] Diagnosis: Other fatigue[ICD10: R53.83] María Elena APPIAH DO [facility] CPT-4: 67637 04/10/2017 ([id number]) OFFICE/OUTPATIENT VISIT EST Diagnosis: Primary insomnia[ICD10: F51.01] Diagnosis: Localized edema[ICD10: R60.0] Diagnosis: 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] María Elena APPIAH DO [facility] CPT-4: 82481 12/13/2016 ([id number]) OFFICE/OUTPATIENT VISIT EST Diagnosis: Primary insomnia[ICD10: F51.01] Diagnosis: Cyanosis[ICD10: R23.0] María Elena Bazzi [facility] CPT-4: 17333 11/01/2016 ([id number]) PREV VISIT EST AGE 40-64 Diagnosis: Encounter for gynecological examination (general) (routine) without abnormal findings[ICD10: Z01.419] Diagnosis: Encounter for routine child health examination without abnormal findings[ICD10: Z00.129] María Elena APPIAH DO [facility] CPT-4: 19220 10/17/2016 ([id number]) OFFICE/OUTPATIENT VISIT EST Diagnosis: Other seasonal allergic rhinitis[ICD10: J30.2] María Elena APPIAH DO [facility] CPT-4: 76789 10/10/2016 ([id number]) OFFICE/OUTPATIENT VISIT EST Diagnosis: Pain in left arm[ICD10: M79.602] Diagnosis: Contact with and (suspected) exposure to potentially hazardous body fluids[ICD10: Z77.21] Diagnosis: 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, 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] Diagnosis: Unspecified open wound, right foot, sequela[ICD10: S91.301S] María Elena APPIAH [facility] CPT-4: 02887 09/19/2016 ([id number]) OFFICE/OUTPATIENT VISIT EST Diagnosis: Chronic sinusitis, unspecified[ICD10: J32.9] Diagnosis: Allergic rhinitis due to pollen[ICD10: J30.1] María Elena APPIAH [place] [facility] CPT-4: 39386 08/24/2016 ([id number]) OFFICE/OUTPATIENT VISIT EST Diagnosis: Acute bronchitis, unspecified[ICD10: J20.9] María Elena APPIAH DO [facility] CPT-4: 37466 08/16/2016 ([id number]) OFFICE/OUTPATIENT VISIT EST Diagnosis: Otitis media, unspecified, right ear[ICD10: H66.91] Diagnosis: Acute bronchitis, unspecified[ICD10: J20.9] María Elena APPIAH DO [facility] CPT-4: 00316 08/10/2016 ([id number]) OFFICE/OUTPATIENT VISIT EST Diagnosis: Acute recurrent sinusitis, unspecified[ICD10: J01.91] Diagnosis: Allergic rhinitis due to pollen[ICD10: J30.1] María Elena APPIAH DO [facility] CPT-4: 59190 08/02/2016 ([id number]) OFFICE/OUTPATIENT VISIT EST Diagnosis: Pain in unspecified joint[ICD10: M25.50] María Elena APPIAH DO [facility] CPT-4: 19712 07/27/2016 OFFICE/OUTPATIENT VISIT EST Diagnosis: 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 CPT-4: 10057 07/20/2016 ([id number]) OFFICE/OUTPATIENT VISIT EST Diagnosis: Blister (nonthermal), left great toe, initial encounter[ICD10: S90.422A] Loan APPIAH [facility] CPT-4: 10189 ([id number]) OFFICE/OUTPATIENT VISIT EST Diagnosis: Acute recurrent sinusitis, unspecified[ICD10: J01.91] María Elena APPIAH [facility] CPT-4: 28691 05/25/2016 ([id number]) OFFICE/OUTPATIENT VISIT EST Diagnosis: Acute sinusitis, unspecified[ICD10: J01.90] María Elena APPIAH DO [facility] CPT-4: 15585 04/26/2016 ([id number]) OFFICE/OUTPATIENT VISIT EST Diagnosis: Flushing[ICD10: R23.2] Diagnosis: Primary insomnia[ICD10: F51.01] María Elena APPIAH [facility] CPT-4: 95724 03/02/2016 ([id number]) OFFICE/OUTPATIENT VISIT EST Diagnosis: Other seasonal allergic rhinitis[ICD10: J30.2] Loan APPIAH DO [facility] CPT-4: 65243 02/09/2016 ([id number]) OFFICE/OUTPATIENT VISIT EST Diagnosis: Primary insomnia[ICD10: F51.01] Diagnosis: Urinary tract infection, site not specified[ICD10: N39.0] María Elena APPIAH DO [facility] CPT-4: 82756 01/24/2016 ([id number]) OFFICE/OUTPATIENT VISIT EST Diagnosis: Other specified disorders of Eustachian tube, bilateral[ICD10: H69.83] Diagnosis: Allergic rhinitis, unspecified[ICD10: J30.9] Loan APPIAH DO [facility] CPT-4: 94838 12/23/2015 ([id number]) OFFICE/OUTPATIENT VISIT EST Diagnosis: Acute recurrent sinusitis, unspecified[ICD10: J01.91] Diagnosis: 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] Diagnosis: Allergic rhinitis, unspecified[ICD10: J30.9] María Elena APPIAH [place] [facility] CPT-4: 42561 12/08/2015 ([id number]) OFFICE/OUTPATIENT VISIT EST Diagnosis: Allergic rhinitis, unspecified[ICD10: J30.9] Diagnosis: Pain in unspecified joint[ICD10: M25.50] María Elena APPIAH DO [facility] CPT-4: 31851 10/07/2015 ([id number]) OFFICE/OUTPATIENT VISIT EST Diagnosis: Essential (primary) hypertension[ICD10: I10] María Elena APPIAH DO [facility] CPT-4: 00352 10/06/2015 OFFICE/OUTPATIENT VISIT EST Diagnosis: Localized enlarged lymph nodes[ICD10: R59.0] Diagnosis: Local infection of the skin and subcutaneous tissue, unspecified[ICD10: L08.9] June Flores MARÍA ELENA APPIAH [place] [facility] CPT- 4: 16745 09/14/2015 ([id number]) OFFICE/OUTPATIENT VISIT EST Diagnosis: Essential (primary) hypertension[ICD10: I10] Diagnosis: Actinic keratosis[ICD10: L57.0] María Elena APPIAH DO [facility] CPT-4: 95246 09/07/2015 ([id number]) OFFICE/OUTPATIENT VISIT EST Diagnosis: Essential (primary) hypertension[ICD10: I10] Diagnosis: Acute stress reaction[ICD10: F43.0] María Elena APPIAH DO [facility] CPT-4: 32449 08/18/2015 ([id number]) OFFICE/OUTPATIENT VISIT EST Diagnosis: Essential (primary) hypertension[ICD10: I10] María Elena APPIAH DO [facility] CPT-4: 44411 07/07/2015 ([id number]) OFFICE/OUTPATIENT VISIT EST Diagnosis: Essential (primary) hypertension[ICD10: I10] María Elena APPIAH DO [facility] CPT-4: 84749 06/24/2015 ([id number]) OFFICE/OUTPATIENT VISIT EST Diagnosis: Essential (primary) hypertension[ICD10: I10] María Elena APPIAH DO [facility] CPT-4: 73131 06/21/2015 ([id number]) OFFICE/OUTPATIENT VISIT EST Diagnosis: Essential (primary) hypertension[ICD10: I10] Diagnosis: Mixed hyperlipidemia[ICD10: E78.2] Diagnosis: Acute stress reaction[ICD10: F43.0] Diagnosis: Primary insomnia[ICD10: F51.01] María Elena APPIAH DO [facility] CPT-4: 89979 06/16/2015 ([id number]) OFFICE/OUTPATIENT VISIT EST Diagnosis: INSOMNIA NOS[ICD9: 780.52] Diagnosis: HYPERTENSION[ICD9: 401.9] Diagnosis: Stress reaction[ICD9: 308.9] María Elena APPIAH DO [facility] CPT-4: 14792 06/02/2015 ([id number]) OFFICE/OUTPATIENT VISIT EST Diagnosis: HYPERTENSION[ICD9: 401.9] Diagnosis: Stress reaction[ICD9: 308.9] María Elena APPIAH DO [facility] CPT-4: 20456 05/20/2015 ([id number]) OFFICE/OUTPATIENT VISIT EST Diagnosis: Skin lesion[ICD9: 709.9] 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 CPT-4: 22059 05/10/2015 ([id number]) OFFICE/OUTPATIENT VISIT EST Diagnosis: SINUSITIS, ACUTE[ICD9: 461.9] Diagnosis: ALLERGIC RHINITIS[ICD9: 477.9] Diagnosis: DERMATITIS NOS[ICD9: 692.9] María Elena [facility] CPT-4: 04665 03/16/2015 OFFICE/OUTPATIENT VISIT EST Diagnosis: Otitis media[ICD9: 382.9] Diagnosis: SINUSITIS, ACUTE[ICD9: 461.9] June VelozAlbertadaniella APPIAH [facility] CPT-4: 39198 09/11/2014 ([id number]) OFFICE/OUTPATIENT VISIT EST Diagnosis: HYPERLIPIDEMIA NEC/NOS[ICD9: 272.4] María Elena APPIAH [facility] CPT-4: 35637 08/31/2014 ([id number]) OFFICE/OUTPATIENT VISIT EST Diagnosis: - I - HYPERTENSION[ICD9: 401.9] Diagnosis: HYPERLIPIDEMIA NEC/NOS[ICD9: 272.4] María Elena APPIAH [facility] CPT-4: 63938 08/27/2014 ([id number]) OFFICE/OUTPATIENT VISIT EST Diagnosis: ABDOMINAL PAIN[ICD9: 789.00] Diagnosis: DYSPEPSIA[ICD9: 536.8] Diagnosis: Thoracic back pain[ICD9: 724.1] María Elena APPIAH [facility] CPT-4: 90589 07/21/2014 ([id number]) OFFICE/OUTPATIENT VISIT EST Diagnosis: ALLERGIC RHINITIS[ICD9: 477.9] María Elena APPIAH [facility] CPT-4: 59405 07/15/2014 ([id number]) OFFICE/OUTPATIENT VISIT EST Diagnosis: EDEMA[ICD9: 782.3] Diagnosis: Chronic insomnia[ICD9: 780.52] María Elena APPIAH [facility] CPT-4: 48536 05/18/2014 ([id number]) OFFICE/OUTPATIENT VISIT EST Diagnosis: Thyromegaly[ICD9: 240.9] Diagnosis: - I - HYPERTENSION[ICD9: 401.9] Diagnosis: ROUTINE MEDICAL EXAM[ICD9: V70.0] Diagnosis: EDEMA[ICD9: 782.3] María Elena APPIAH [facility] CPT-4: 02397 05/14/2014 OFFICE/OUTPATIENT VISIT EST Diagnosis: BRONCHITIS, ACUTE[ICD9: 466.0] Diagnosis: SINUSITIS, ACUTE[ICD9: 461.9] María Elena APPIAH [facility] CPT-4: 90892 04/21/2014 OFFICE/OUTPATIENT VISIT EST Diagnosis: SINUSITIS, ACUTE[ICD9: 461.9] June VelozAlbertadaniella [facility] CPT-4: 22389 03/04/2014 ([id number]) OFFICE/OUTPATIENT VISIT EST Diagnosis: VACCINE FOR TDAP[ICD10: Z23] María Elena [facility] CPT-4: 78467 02/27/2014 ([id number]) OFFICE/OUTPATIENT VISIT EST Diagnosis: Seborrheic keratoses, inflamed[ICD9: 702.11] Diagnosis: ACTINIC KERATOSIS[ICD9: 702.0] Diagnosis: INSOMNIA NOS[ICD9: 780.52] María Elena [facility] CPT-4: 39606 01/13/2014 OFFICE/OUTPATIENT VISIT EST Diagnosis: EUSTACHIAN TUBE DYSFUNCTION[ICD9: 381.81] Diagnosis: ALLERGIC RHINITIS[ICD9: 477.9] Diagnosis: Serous otitis media[ICD9: 381.4] María Elena [facility] CPT-4: 20431 12/24/2013 ([id number]) OFFICE/OUTPATIENT VISIT EST Diagnosis: SINUSITIS, ACUTE[ICD9: 461.9] Diagnosis: ALLERGIC RHINITIS[ICD9: 477.9] Diagnosis: EUSTACHIAN TUBE DYSFUNCTION[ICD9: 381.81] María Elena [facility] CPT-4: 13133 11/12/2013 ([id number]) OFFICE/OUTPATIENT VISIT EST Diagnosis: ALLERGIC RHINITIS[ICD9: 477.9] Diagnosis: SINUSITIS, ACUTE[ICD9: 461.9] María Elena [facility] CPT-4: 22902 10/21/2013 ([id number]) OFFICE/OUTPATIENT VISIT EST Diagnosis: ASYMPTOMATIC VARICOSE VEINS[ICD9: 454.9] Diagnosis: INSOMNIA NOS[ICD9: 780.52] María Elena [facility] CPT-4: 09807 09/22/2013 OFFICE/OUTPATIENT VISIT EST Diagnosis: SINUSITIS, ACUTE[ICD9: 461.9] June 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 CPT-4: 12347 08/04/2013 ([id number]) OFFICE/OUTPATIENT VISIT EST Diagnosis: Cervicalgia[ICD9: 723.1] Diagnosis: SPASM OF MUSCLE[ICD9: 728.85] Diagnosis: CEPHALGIA, TENSION[ICD9: 307.81] María Elena 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 CPT-4: 81127 05/26/2013 ([id number]) OFFICE/OUTPATIENT VISIT EST Diagnosis: HYPERTENSION[ICD9: 401.9] Diagnosis: EDEMA[ICD9: 782.3] Diagnosis: Serous otitis media[ICD9: 381.4] María Elena JUARES LucioJj TD [facility] CPT-4: 10967 04/16/2013 ([id number]) OFFICE/OUTPATIENT VISIT EST Diagnosis: SINUSITIS, ACUTE[ICD9: 461.9] Diagnosis: ALLERGIC RHINITIS[ICD9: 477.9] Diagnosis: EDEMA[ICD9: 782.3] Diagnosis: Thyromegaly[ICD9: 240.9] Diagnosis: MALAISE AND FATIGUE[ICD9: 780.79] María Elena Lopez Luc[facility]j [facility] CPT-4: 31302 03/05/2013 ([id number]) OFFICE/OUTPATIENT VISIT EST Diagnosis: PAIN, LOWER BACK[ICD9: 724.2] Diagnosis: SPASM OF MUSCLE[ICD9: 728.85] María [facility]: 21498 12/23/2012 OFFICE/OUTPATIENT VISIT EST Diagnosis: Low back pain[ICD9: 724.2] Lashawn Hicks [facility] CPT-4: 79016 12/16/2012 ([id number]) OFFICE/OUTPATIENT VISIT EST Diagnosis: PAIN, LOWER BACK[ICD9: 724.2] Diagnosis: SCIATICA[ICD9: 724.3] Diagnosis: Lumbar herniated disc[ICD9: 722.10] María Elena COLON LucioJj [facility] CPT[facility]: 03842 12/09/2012 ([id number]) OFFICE/OUTPATIENT VISIT EST Diagnosis: PAIN, LOWER BACK[ICD9: 724.2] Diagnosis: SCIATICA[ICD9: 724.3] Diagnosis: LUMBAR DISC DISPLACEMENT[ICD9: 722.10] María Elena MARIN LucioJj [facility] CPT-4: 18265 12/04/2012 OFFICE/OUTPATIENT VISIT EST Diagnosis: Pneumonia[ICD9: 486] Mary Hicks [facility] CPT-4: 97729 11/22/2012 ([id number]) OFFICE/OUTPATIENT VISIT EST Diagnosis: PNEUMONIA, ORGANISM[ICD9: 486] Diagnosis: Exacerbation of RAD (reactive airway disease)[ICD9: 493.92] María Elenamarcella MONTEROQUELINE LucioJj [facility] CPT-4: 57989 11/21/2012 OFFICE/OUTPATIENT VISIT EST Diagnosis: HYPERTENSION[ICD9: 401.9] Diagnosis: Cephalgia[ICD9: 784.0] Lashawn JUARES LucioJj [facility] CPT-4: 46983 10/29/2012 ([id number]) OFFICE/OUTPATIENT VISIT EST Diagnosis: MALAISE AND FATIGUE[ICD9: 780.79] Diagnosis: ARTHRALGIA-MULTIPLE SITES[ICD9: 719.49] María Elena MONTERO APARNAGAEL LucioJj [facility] CPT-4: 63903 10/14/2012 ([id number]) OFFICE/OUTPATIENT VISIT EST Diagnosis: URINARY FREQUENCY[ICD9: 788.41] María Elenamarcella Hicks [facility] CPT-4: 92764 09/27/2012 ([id number]) OFFICE/OUTPATIENT VISIT EST Diagnosis: MALAISE AND FATIGUE[ICD9: 780.79] Diagnosis: ARTHRALGIA-MULTIPLE SITES[ICD9: 719.49] María Elena MONTERO APARNAGAEL LucioJj [facility] CPT-4: 30140 09/25/2012 ([id number]) OFFICE/OUTPATIENT VISIT EST Diagnosis: SINUSITIS, ACUTE[ICD9: 461.9] Diagnosis: 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 CPT-4: 86076 08/29/2012 OFFICE/OUTPATIENT VISIT EST Diagnosis: ACTINIC KERATOSIS[ICD9: 702.0] Diagnosis: Inflamed seborrheic keratosis[ICD9: 702.11] Diagnosis: Skin cancer of face[ICD9: 173.31] Diagnosis: HYPERTENSION[ICD9: 401.9] María Elena Hicks [facility] MOJICAR[facility] CPT-4: 69471 08/12/2012 ([id number]) OFFICE/OUTPATIENT VISIT EST Diagnosis: ARTHRALGIA-MULTIPLE SITES[ICD9: 719.49] Diagnosis: GOUT[ICD9: 274.9] Diagnosis: HYPERTENSION[ICD9: 401.9] Diagnosis: Tachycardia[ICD9: 785.0] María Elena ELLISLINE LucioJj [facility] CPT-4: 03479 05/06/2012 ([id number]) OFFICE/OUTPATIENT VISIT EST Diagnosis: INSOMNIA NOS[ICD9: 780.52] María Elena Waymindivictorino MARÍA ELENA LucioJj [facility] CPT-4: 64571 04/03/2012 ([id number]) OFFICE/OUTPATIENT VISIT EST Diagnosis: INSOMNIA NOS[ICD9: 780.52] Diagnosis: HYPERTENSION[ICD9: 401.9] Diagnosis: MIGRAINE NOS/NOT INTRCBL[ICD9: 346.90] María Elena Seamusmindivictorino MONTEROLui MARIN LucioJj [facility] CPT-4: 97708 03/19/2012 ([id number]) OFFICE/OUTPATIENT VISIT EST Diagnosis: CELLULITIS[ICD9: 682.9] Diagnosis: Ankle pain[ICD9: 719.47] Diagnosis: HYPERTENSION[ICD9: 401.9] María Elena Waymindivictorino MARÍA ELENA LucioJj [facility] CPT-4: 63774 02/20/2012 ([id number]) OFFICE/OUTPATIENT VISIT EST Diagnosis: MIGRAINE NOS/NOT INTRCBL[ICD9: 346.90] Diagnosis: Vomiting[ICD9: 787.03] María Elena Waydawn JUARES LucioJj [facility] CPT-4: 99002 01/30/2012 ([id number]) OFFICE/OUTPATIENT VISIT EST Diagnosis: EDEMA[ICD9: 782.3] Diagnosis: HYPERTENSION[ICD9: 401.9] Diagnosis: ALLERGIC RHINITIS[ICD9: 477.9] Diagnosis: ARTHRALGIA-MULTIPLE SITES[ICD9: 719.49] María Elena Seamusdawn MONTERO APARNAGAEL LucioJj TD [facility] CPT-4: 22341 01/24/2012 ([id number]) OFFICE/OUTPATIENT VISIT EST Diagnosis: SPASM OF MUSCLE[ICD9: 728.85] Diagnosis: Thoracic back pain[ICD9: 724.1] Diagnosis: Cervical pain[ICD9: 723.1] María Elena Seamusdawn JUARES LucioJj [facility] CPT-4: 17323 01/10/2012 OFFICE/OUTPATIENT VISIT EST Diagnosis: PAIN, LOWER BACK[ICD9: 724.2] Diagnosis: LUMBAR DISC DISPLACEMENT[ICD9: 722.10] María Elena MARIN Luc[facility]Jj [facility]: 19437 12/11/2011 OFFICE/OUTPATIENT VISIT EST Diagnosis: MIGRAINE NOS/NOT INTRCBL[ICD9: 346.90] Diagnosis: SINUSITIS, ACUTE[ICD9: 461.9] María Elena Hicks [facility]PT[facility]: 76184 11/09/2011 OFFICE/OUTPATIENT VISIT EST Diagnosis: MIGRAINE NOS/NOT INTRCBL[ICD9: 346.90] Diagnosis: LYMPHADENOPATHY[ICD9: 785.6] María Elena Hicks [facility] CPT[facility]: 33613 09/13/2011 OFFICE/OUTPATIENT VISIT EST Diagnosis: MALAISE AND FATIGUE[ICD9: 780.79] Diagnosis: ARTHRALGIA-MULTIPLE SITES[ICD9: 719.49] María Elena Hicks [facility] CPT-4: 98415 08/31/2011 OFFICE/OUTPATIENT VISIT EST Diagnosis: SINUSITIS, ACUTE[ICD9: 461.9] María Elena Hicks [facility] CPT-4: 07445 07/20/2011 OFFICE/OUTPATIENT VISIT EST Diagnosis: HYPERTENSION[ICD9: 401.9] Diagnosis: PAIN, LOWER BACK[ICD9: 724.2] Diagnosis: SPASM OF MUSCLE[ICD9: 728.85] María Elena Hicks [facility] CPT-[facility]: 72808 07/06/2011 OFFICE/OUTPATIENT VISIT EST Diagnosis: MIGRAINE NOS/NOT INTRCBL[ICD9: 346.90] Diagnosis: HYPERTENSION[ICD9: 401.9] María Elena [facility] CPT-4: 35307 05/22/2011 OFFICE/OUTPATIENT VISIT EST Diagnosis: SINUSITIS, ACUTE[ICD9: 461.9] Diagnosis: MIGRAINE NOS/NOT INTRCBL[ICD9: 346.90] Diagnosis: Dehydration[ICD9: 276.51] Diagnosis: Vomiting[ICD9: 787.03] María Elena Orender [facility] CPT-4: 82973 05/09/2011 ([id number]) OFFICE/OUTPATIENT VISIT EST María Elena Seamusnder [facility] CPT-4: 93793 02/14/2011 ([id number]) OFFICE/OUTPATIENT VISIT EST María Elena Seamusnder [facility] CPT-4: 71681 02/03/2011 ([id number]) OFFICE/OUTPATIENT VISIT EST María Elena Seamusnder [facility] CPT-4: 27964 01/31/2011 ([id number]) OFFICE/OUTPATIENT VISIT EST María Elena Seamusnder [facility] CPT-4: 38103 01/25/2011 ([id number]) OFFICE/OUTPATIENT VISIT EST María Elena Seamusnder [facility] CPT-4: 25259 01/18/2011 ([id number]) OFFICE/OUTPATIENT VISIT EST María Elenamarcella Waynder [facility] CPT-4: 84765 11/29/2010 ([id number]) OFFICE/OUTPATIENT VISIT, EST María Elena Seamusnder [facility] CPT-4: 86202 10/10/2010 ([id number]) OFFICE/OUTPATIENT VISIT, EST María Elena Seamusnder [facility] CPT-4: 95476 06/07/2010 ([id number]) OFFICE/OUTPATIENT VISIT, EST María Elena Seamusnder [facility] CPT-4: 81636 04/27/2010 ([id number]) OFFICE/OUTPATIENT VISIT, EST María Elena Orender [facility] CPT-4: 01613 04/05/2010 ([id number]) OFFICE/OUTPATIENT VISIT, EST María Elena Orender [facility] CPT-4: 68828 03/09/2010 ([id number]) OFFICE/OUTPATIENT VISIT, EST María Elena Seamusnder [facility] CPT-4: 16507 03/03/2010 ([id number]) OFFICE/OUTPATIENT VISIT, EST María Elena Orender KYLA[facility] QUELINE LucioJj APPIAH [facility] [employer] CPT-4: 77803 01/17/2010 ([id number]) PREV VISIT, EST, AGE 40-64 María Elena MONTEROMICHAEL ValdesJj ORTAVICTORINO [facility] CPT-4: 34468 12/27/2009 Plan of Care Planned Activity Notes Codes Status Date Appointment: María Elena Appiah WPtel: [address] [place], [place] [phone] [place] Won't have the new insurance till [...] W06.XXXS 05/28/2019 Appointment: María Elena Appiah WPtel: [address] [place], [place] [phone] FOLLOW UP 05/28/2019 Appointment: María Elena Appiah WPtel: [address] [place] [address] [place] BP CHECK 05/19/2019 Visit Diagnosis Plan: [...] 01/22/2019 Appointment: María Elena Appiah WPtel: [address] [place], [place] [phone] [place] FOLLOW UP 01/22/2019 Patient Education: estradiol- [employer] Coupon [id number] https://www.[employer]/General Assembly/resources/getResource/61/233x752f-6rl3-5v29-7q Completed 01/22/2019 Appointment: María Elena Appiah WPtel: [address] [place] [address] [place] CANCELED 01/20/2019 Appointment: María Elena Appiah WPtel: [address] [place] [address] [place] LM NO SHOW 01/06/2019 Appointment: María Elena Appiah WPtel: [address] [place] [address] [place] CANCELED 10/17/2018 Appointment: María Elena Appiah WPtel: [address] [place] [address] [place] BP CHECK 10/09/2018 Visit Diagnosis Plan: [...] I10 09/30/2018 Appointment: María Elena Appiah WPtel: [address] [place], [place] [phone] [place] FOLLOW UP 09/30/2018 Visit Diagnosis Plan: [...] F51.01 08/27/2018 Appointment: María Elena Appiah WPtel: [address] [place] [address] ACUTE ILLNESS 08/27/2018 Appointment: María Elena Appiah WPtel: [address] [place] [address] [place] Patient stated she went out to [...] Tyle... 08/09/2018 Appointment: María Elena Appiah WPtel: [address] [place] [address] ACUTE ILLNESS 08/09/2018 Appointment: María Elena Appiah WPtel: [address] [place] [address] NO SHOW 08/08/2018 Visit Diagnosis Plan: Anxiety [...] 07/22/2018 Appointment: María Elena Appiah WPtel: [address] [facility] ACUTE ILLNESS 07/22/2018 Appointment: María Elena Appiah WPtel: [phone] [address] [place] INJECTION 06/19/2018 Patient Education: Patient Medication [...] ICD-10 : L03.031 06/17/2018 Appointment: Kathleen Zuniga [address] [place] [address] ACUTE ILLNESS 06/17/2018 Patient Education: Patient Medication [...] : B02.9 05/16/2018 Appointment: Kathleen Zuniga [address] ACUTE ILLNESS 05/16/2018 Patient Education: Patient [...] : L03.115 03/20/2018 Appointment: Kathleen Zuniga [address] [phone] FOLLOW UP 03/20/2018 Patient Education: Patient Medication [...] : L03.115 03/18/2018 Appointment: Kathleen Zuniga [address] [phone] FOLLOW UP 03/18/2018 Patient Education: Patient Medication [...] : L03.115 03/15/2018 Appointment: Kathleen Zuniga [address] [facility] ACUTE ILLNESS 03/15/2018 Patient Education: Patient [...] : J01.90 02/11/2018 Appointment: Kathleen Zuniga [address] [facility] ACUTE ILLNESS 02/11/2018 Patient Education: Patient Medication Summary Completed 02/11/2018 Appointment: María Elena Appiah WPtel: [phone] [id number] INJECTION 02/01/2018 Patient Education: Patient Medication Summary [...] : M51.16 01/30/2018 Appointment: Kathleen Zuniga [address] [facility] ACUTE ILLNESS 01/30/2018 Patient Education: Patient [...] 12/18/2017 Appointment: María Elena Appiah WPtel: [address] [place] [address] Annual Well Visit 12/18/2017 Patient Education: Patient Medication Summary Completed 12/18/2017 Care Plan: Referral Order SNOMED-CT : [id number] Pending 12/18/2017 Appointment: María Elena Appiah WPtel: [address] [place] [address] INJECTION 12/10/2017 Patient Education: Patient Medication Summary [...] ICD-10 : L03.031 12/07/2017 Appointment: Kathleen Zuniga [address] [place] [address] ACUTE ILLNESS 12/07/2017 Patient Education: Patient Medication [...] : J01.00 10/08/2017 Appointment: [facility] [facility] 10/08/2017 Patient Education: Patient Medication Summary Completed 10/08/2017 Appointment: María Elena [phone] [facility] [facility] 09/21/2017 Patient Education: Patient Medication Summary [...] ICD-10 : R06.83 09/20/2017 Appointment: Kathleen Zuniga [address] [place], [place] [phone] ACUTE ILLNESS 09/20/2017 Patient Education: Patient Medication [...] ICD-10 : L60.0 08/29/2017 Appointment: Kathleen Zuniga [address] [place], [place] [phone] OFFICE SURGERY 08/29/2017 Patient Education: Patient Medication Summary Completed 08/29/2017 Visit Diagnosis Plan: Actinic keratosis Discussion: Cr yotherapy as above ICD-9 : 702.0 ICD-10 : L57.0 08/01/2017 Appointment: María Elena Appiah WPtel: [address] [place] [address] OFFICE SURGERY 08/01/2017 Patient Education: Patient Medication Summary Completed 08/01/2017 Appointment: María Elena Appiah WPtel: [address] [place], [place] [phone] PATIENT THOUGHT APPOINTMENT WAS TOMORROW 07/26/17 CALLED 15 MINUTES BEFORE APPT TO SAY SHE DIDN'T HAVE ANYONE TO COVER HER BUSINESS AND WOULD NOT MAKE IT NO SHOW 07/25/2017 Visit Diagnosis Plan: Cellulitis of left toe Discussio n: Clindamycin and notify if worsening or persistis ICD-9 : 681.10 ICD-10 : L03.032 07/19/2017 Appointment: María Elena Appiah WPtel: [facility] MEDICATION REVIEW 07/19/2017 Patient Education: Patient Medication Summary Completed 07/19/2017 Appointment: María Elena Appiah WPtel: [address] [place], [place] [phone] [place] CANCELED 07/04/2017 Visit Diagnosis Plan: Generalized hyperhidrosis Discus ian: CBC, CMP, TSH, free T4 ordered to assess. will review labs. ICD-9 : 780.8 ICD-10 : R61 06/27/2017 Visit Diagnosis Plan: Chronic sinusitis, unspecified D iscussion: Referral sent to dr. albarado in [place] per patient request. patient has been treated multiple times for sinus infections with no recovery. patient was seen by dr sanchez in the past with no interventions. patient has deviated septum which may be affecting her sinuses. 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, including hip Discussion: Shave removal of above lesio n--sent to pathology ICD-9 : 216.7 ICD-10 : D23.72 01/24/2017 Appointment: María Elena Appiah WPtel: [address] [place], [place] [phone] 01/23 confirmed ~ OFFICE SURGERY 01/24/2017 Patient Education: Patient Medication Summary Completed 01/24/2017 Appointment: Loan Sánchez [address] [place], [place] [id number] 01/09 rescheduled~sl RESCHEDULED 01/15/2017 Visit [...] 12/13/2016 Appointment: María Elena Appiah WPtel: [address] [place], [place] [phone] 12/12 confirmed ~ MEDICATION REVIEW 12/13/2016 Patient Education: Patient Medication Summary Completed 12/13/2016 Appointment: María Elena Appiah WPtel: [address] [place], [place] [phone] rescheduled for 12/13/16 at 11am RESCHEDULED 0 12/06/2016 Appointment: María Elena Appiah WPtel: [address] [place], [place] [phone] [place] CANCELED 11/23/2016 Patient Education: Patient Medication [...] F51.01 11/01/2016 Appointment: María Elena Appiah WPtel: [address] [place], [place] [phone] [place] 10/31 lm `sl 11/01 lm`sl MEDICATION REVIEW 017 Patient Education: Patient Medication Summary Completed 11/01/2016 Referral: Canelo Overton WPtel: [phone] [id number] [place] Referral Initiated 10/30/2016 Visit Diagnosis Plan: [...] Z01.419 10/17/2016 Appointment: María Elena Appiah WPtel: [address] [place], [place] [phone] 10/16 confirmed ~sl PAP 10/17/2016 Patient Education: Patient Medication Summary Completed 10/17/2016 Care Plan: MAMMOGRAM SCREENING LOINC : 2 6347-5 Pending 10/17/2016 Visit Diagnosis Plan: Other seasonal allergic rhinitis Discussion: Decadron/Garamycin Nasal [place] Mix Too soon for steroid Retry zyrtec 10mg daily ICD-9 : 477.9 ICD-10 : J30.2 10/10/2016 Appointment: María Elena Appiah WPtel: [phone] [facility] [place] FOLLOW UP 10/10/2016 Patient Education: Patient Medication Summary Completed 10/10/2016 Appointment: María Elena [facility] [facility] 10/02 reschedule `sl RESCHEDULED 10/02/2016 Visit Plan: See surgery for removal of n ew left arm lesion and right foot lesion Lyrica to use next month for left arm paresthesias Continue current meds Discussed sunscreen/sunblock combo 09/19/2016 Appointment: María Elena Appiah WPtel: [address] [place], [place] [id number] 09/18 confirmed ~sl FOLLOW UP 09/19/2016 Patient Education: Patient Medication Summary Completed 09/19/2016 Patient Education: Patient Medication Summary Completed 09/18/2016 Care Plan: MAMMOGRAM BOTH BREASTS LOINC : 80962-1 Pending 09/18/2016 Visit Plan: Discussed that needs [...] sinuses 08/24/2016 Appointment: María Elena Appiah WPtel: [address] [place] [address] ACUTE ILLNESS 08/24/2016 Patient Education: Patient Medication Summary Completed 08/24/2016 Patient Education: Patient Medication Summary Completed 08/23/2016 Care Plan: MAMMOGRAM SCREENING LOINC : 2 6347-5 Pending 08/23/2016 Visit Plan: Finish doxycycline Add Breo 100/25 1 p BID for 2 weeks If not improving within next 2 days will get CXR 08/16/2016 Appointment: María Elena Appiah WPtel: [address] [place], [place] [phone] ACUTE ILLNESS 08/16/2016 Patient Education: Patient Medication Summary Completed 08/16/2016 Visit Plan: Supportive care. Rest, Fluid s, Tylenol/Motrin prn fever or bodyaches. Notify if worsening symptoms. Doxycyline and Prednisone 08/10/2016 Appointment: María Elena Appiah WPtel: [address] [place], [place] [phone] 08/09 lm`sl....confirmed-sp FOLLOW UP 09/2015 Patient Education: Patient Medication Summary Completed 08/10/2016 Visit Plan: Saline nasal flushes prn. Ty lenol/Motrin prn headache. Notify if persists/symptoms worsening. Dexamethasone 8mg IM today May use coricedan and mucinex 08/02/2016 Appointment: María Elena Appiah WPtel: [address] [place] [address] ACUTE ILLNESS 08/02/2016 Patient Education: Patient Medication Summary Completed 08/02/2016 Visit Plan: Cryotherapy as above and lef t forearm lesion removal as above with 5-0 punch biopsy and sent to path Return in 10 days for suture removal 08/01/2016 Appointment: María Elena Appiah WPtel: [address] [place] [address] 07/31 confirmed`~sl OFFICE SURGERY 08/01/2016 Patient Education: Patient Medication Summary Completed 08/01/2016 Visit Plan: Stop clindamycin Check CBC, CMP, ESR now/STAT 07/27/2016 Appointment: María Elena Appiah WPtel: [address] [place] [address] ACUTE ILLNESS 07/27/2016 Patient Education: Patient Medication Summary Completed 07/27/2016 Visit Plan: Update lab and check ABIs to start with Will likely need cardiology evaluation to rule out PVD Clindamycin for 10 days Daily yogurt or probiotic Will return for removal of left arm lesions 07/20/2016 Appointment: María Elena Appiah WPtel: [address] [place] [address] ACUTE ILLNESS 07/20/2016 Patient Education: Patient Medication Summary Completed 07/20/2016 Patient Education: Patient Medication Summary Completed 07/20/2016 Care Plan: MAMMOGRAM BOTH BREASTS LOINC : 94361-6 Pending 07/20/2016 Care Plan: US EXAM CHEST LOINC : 94227-6 Pending 07/20/2016 Visit Plan: Wound culture collected from left great toe Appearance is somewhat staph like Rx as above Wound cleanser and skin care reviewed May need to add oral antibiotic if sores do not heal or continue to reoccur 07/06/2016 Appointment: Loan Sánchez [address] [place] [address] ACUTE ILLNESS 07/06/2016 Patient Education: Patient Medication Summary Completed 07/06/2016 Appointment: María Elena Appiah WPtel: [address] [place] [address] [place] INJECTION 05/25/2016 Patient Education: Patient Medication Summary Completed 05/25/2016 Visit Plan: Saline nasal flushes prn. Ty lenol/Motrin prn headache. Notify if persists/symptoms worsening. Dexamethasone and Rocephin given 04/26/2016 Appointment: María Elena Appiah WPtel: [address] [place] [address] ACUTE ILLNESS 04/26/2016 Patient Education: Patient Medication Summary Completed 04/26/2016 Visit Plan: Check CBC, CMP, TSH, FreeT4, HbA1C, estradiol, lipids in AM 03/02/2016 Appointment: María Elena Appiah WPtel: [address] [place] [address] 03/01 lm~sl ACUTE ILLNESS 03/02/2016 Patient Education: Patient Medication Summary Completed 03/02/2016 Visit Plan: Exam is nearly normal Needs to be taking daily antihistamine Would prefer to use oral steroids instead of shot but patient insist that oral steroids cause horrible headaches for her Will given kenalog IM instead 02/09/2016 Appointment: Loan Sánchez [address] [place] [address] ACUTE ILLNESS 02/09/2016 Patient Education: Patient Medication Summary Completed 02/09/2016 Visit Plan: Culture urine Macrobid DC xa nax Trial of Ativan 1mg q HS 01/24/2016 Appointment: María Elena Appiah WPtel: [address] [place] [address] ACUTE ILLNESS 01/24/2016 Patient Education: Patient Medication Summary Completed 01/24/2016 Visit Plan: No steroid or rocephin injec tion warranted Can have oral prednisone Continue current home regimen Needs to follow up with Dr Sanchez if problems persist 12/23/2015 Appointment: Loan Sánchez [address] [place] [address] ACUTE ILLNESS 12/23/2015 Patient Education: Patient Medication Summary Completed 12/23/2015 Visit Plan: Saline nasal flushes prn. Ty lenol/Motrin prn headache. Notify if persists/symptoms worsening. Kenalog 40mg IM today 12/08/2015 Appointment: María Elena Appiah WPtel: [address] [place] [address] 12/06 confirmed~ ACUTE ILLNESS 12/08/2015 Patient Education: Patient Medication Summary Completed 12/08/2015 Appointment: María Elena Appiah WPtel: [address] [place] [address] ACUTE ILLNESS 11/18/2015 Patient Education: Patient Medication Summary Completed 10/11/2015 Appointment: María Elena Appiah WPtel: [address] [place] [address] [place] INJECTION 10/07/2015 Patient Education: Patient Medication Summary Completed 10/07/2015 Visit Plan: Check renal arterial doppler s and ECHO Change amlodopine to lotrel 5/20mg q HS Will need stress test as well Check CMP, uric acid, ESR 10/06/2015 Appointment: María Elena Appiah WPtel: [address] [place] [address] ACUTE ILLNESS 10/06/2015 Patient Education: Patient Medication Summary Completed 10/06/2015 Patient Education: [facility] - [employer] - Amlodipine Besylate - 18-64 - Dynamic Portal ID Completed 10/06/2015 Appointment: María Elena Appiah WPtel: [address] [place], [place] [address] FOLLOW UP 09/22/2015 Visit Plan: Cephalexin 500 mg PO bid Mery ly topical Mupirocin to lesions on left lateral neck and face Follow-up in one week. Sooner if symptoms worsen 09/14/2015 Appointment: June Flores WPtel: [address] [place] [address] ACUTE ILLNESS 09/14/2015 Patient Education: Patient Medication Summary Completed 09/14/2015 Visit Plan: Change bystolic to bedtime d osing and amlodopine to morning dosing Cryotherapy as above to AKs 09/07/2015 Appointment: María Elena Appiah WPtel: [address] [place] [address] 09/06 appointment made and confirmed ~sl FOLLOW UP 09/07/2015 Patient Education: Patient Medication Summary Completed 09/07/2015 Visit Plan: Increase bystolic back to 20 mg daily but will split and take 10mg in AM and 10mg in PM Stress Reducers 08/18/2015 Appointment: María Elena Appiah WPtel: [address] [place] [address] 08/17/15 appt confirmed cn ACUTE ILLNESS 08/18 Patient Education: Patient Medication Summary Completed 08/18/2015 Appointment: María Elena Appiah WPtel: [address] [place] [address] BP CHECK 07/07/2015 Patient Education: Patient Medication Summary Completed 07/07/2015 Appointment: María Elena Appiah WPtel: [address] [place] [address] BP CHECK 06/24/2015 Patient Education: Patient Medication Summary Completed 06/24/2015 Appointment: María Elena Appiah WPtel: [address] [place] [address] BP CHECK 06/21/2015 Patient Education: Patient Medication Summary Completed 06/21/2015 Visit Plan: Lab discussed Continue curre nt meds and lifestyle modification Recheck lab in 6mos 06/16/2015 Appointment: María Elena Appiah WPtel: [address] [place], [place] [address] 06/15 confirmed FOLLOW UP 06/16/2015 Patient Education: Patient Medication Summary Completed 06/16/2015 Patient Education: Patient Medication Summary Completed 06/15/2015 Visit Plan: Increase cymbalta to 60mg q HS Keep clonidine at current dose Recheck 2weeks Change xanax to klonopin 06/02/2015 Appointment: María Elena Appiah WPtel: [address] [place] [address] 06/02 lm FOLLOW UP 06/02/2015 Patient Education: Patient Medication Summary Completed 06/02/2015 Appointment: María Elena Appiah WPtel: [address] [place] [address] ACUTE ILLNESS 05/24/2015 Visit Plan: Increase clonidine to 0.2mg q HS Add cymbalta 30mg q HS Recheck 2weeks Stress Reducers Check fasting lab Discussed sleep study 05/20/2015 Appointment: María Elena Appiah WPtel: [address] [place] [address] ACUTE ILLNESS 05/20/2015 Patient Education: Patient Medication Summary Completed 05/20/2015 Patient Education: [facility] - [employer]aving [employer] - Cymbalta - 18-64 - Dynamic Portal ID Completed 05/20/2015 Appointment: María Elena Appiah WPtel: [address] [place] [address] BP CHECK 05/19/2015 Patient Education: Patient Medication Summary Completed 05/19/2015 Visit Plan: Topical Bactroban alternatin g with topical betamethasone Recheck 2weeks 05/10/2015 Appointment: María Elena Appiah WPtel: [address] [place] [address] 05/07 vm cn...05/07 appt confirmed OFFICE SURGER Y 05/10/2015 Patient Education: Patient Medication Summary Completed 05/10/2015 Referral: [facility] [address] Referral Initiated 05/04/2015 Visit Plan: Saline nasal flushes prn. Ty lenol/Motrin prn headache. Notify if persists/symptoms worsening. Depomedrol 40mg IM today 03/16/2015 Appointment: María Elena Appiah WPtel: [address] [place] [address] ACUTE ILLNESS 03/16/2015 Patient Education: Patient Medication Summary Completed 03/16/2015 Appointment: María Elena Appiah WPtel: [address] [place] [address] ER Follow UP 03/09/2015 Visit Plan: Cryotherapy to lesions as ab ove 10/27/2014 Appointment: María Elena Appiah WPtel: [address] [place] [address] OFFICE SURGERY 10/27/2014 Patient Education: Patient Medication Summary Completed 10/27/2014 Appointment: June Flores WPtel: [address] [place] [address] ACUTE ILLNESS 09/11/2014 Patient Education: Patient Medication Summary Completed 09/11/2014 Visit Plan: Lab discussed Lipitor 10mg d aily Coenzyme Q-10 400mg daily Vitamin D3 5000u daily Recheck lipids with LFTs in 3mos then fwup 08/31/2014 Appointment: María Elena Appiah WPtel: [address] [place] [address] 08/28 voicemail FOLLOW UP 08/31/2014 Patient Education: Patient Medication Summary Completed 08/31/2014 Appointment: María Elena Appiah WPtel: [address] [place], [place] [id number] [place] LAB 08/27/2014 Appointment: María Elena Appiah WPtel: [address] [place], [place] [phone] [place] LAB 08/27/2014 Patient Education: Patient Medication Summary Completed 08/27/2014 Appointment: María Elena Appiah WPtel: [address] [place] [address] ACUTE ILLNESS 07/23/2014 Appointment: María Elena Appiah WPtel: [address] [place] [address] ACUTE ILLNESS 07/21/2014 Patient Education: Patient Medication Summary Completed 07/21/2014 Visit Plan: Kenalog 40mg IM today Contin ue narendra and singulair Add Flonase 07/15/2014 Appointment: María Elena Appiah WPtel: [address] [place] [address] ACUTE ILLNESS 07/15/2014 Appointment: María Elena Appiah WPtel: [address] [place] [address] ACUTE ILLNESS 07/15/2014 Patient Education: Patient Medication Summary Completed 07/15/2014 Visit Plan: Will do metolazone 2.5mg prn with 6 potassium and see if causes as severe cramping Trial of of seroquel XR 50mg q PM with evening meal and let us know how works 05/18/2014 Appointment: María Elena Appiah WPtel: [address] [place] [address] 05/15 left message FOLLOW UP 05/18/2014 Patient Education: Patient Medication Summary Completed 05/18/2014 Appointment: María Elena Appiah WPtel: [address] [place] [address] LAB 05/14/2014 Patient Education: Patient Medication Summary Completed 05/14/2014 Appointment: María Elena Appiah WPtel: [address] [place], [place] [phone] [place] INJECTION 04/22/2014 Visit Plan: Rocephin and Kenalog today a nd finish abx given from urgent care 04/21/2014 Appointment: María Elena Appiah WPtel: [address] [place], [place] [phone] [place] INJECTION 04/21/2014 Patient Education: Patient Medication Summary Completed 04/21/2014 Appointment: June Flores WPtel: [address] [place] [address] ACUTE ILLNESS 03/04/2014 Patient Education: Patient Medication Summary Completed 03/04/2014 Appointment: María Elena Appiah WPtel: [address] [place] [address] [place] INJECTION 02/27/2014 Patient Education: Patient Medication Summary Completed 02/27/2014 Visit Plan: Cryotherapy as above to all lesions Patient wants to try no meds for insomnia for a while and see how goes 01/13/2014 Appointment: María Elena Appiah WPtel: [address] [place] [address] OFFICE SURGERY 01/13/2014 Patient Education: Patient Medication Summary Completed 01/13/2014 Visit Plan: Stop Melatonin Stop Soma Tri al of trazadone 75mg q HS See ENT for possible tubes as has had chronic ETD and serous otitis media with numerous steroids 12/24/2013 Appointment: María Elena Appiah WPtel: [address] [place] [address] ACUTE ILLNESS 12/24/2013 Patient Education: Patient Medication Summary Completed 12/24/2013 Visit Plan: Saline nasal flushes prn. Ty lenol/Motrin prn headache. Notify if persists/symptoms worsening. 11/12/2013 Appointment: María Elena Appiah WPtel: [address] [place] [address] ACUTE ILLNESS 11/12/2013 Patient Education: Patient Medication Summary Completed 11/12/2013 Appointment: María Elena Appiah WPtel: [address] [place] [address] ACUTE ILLNESS 10/21/2013 Patient Education: Patient Medication Summary Completed 10/21/2013 Visit Plan: Sleep hygiene and sleep rout ine Melatonin 10mg q HS Support stockings and observe 09/22/2013 Appointment: María Elena Appiah WPtel: [address] [place] [address] ACUTE ILLNESS 09/22/2013 Patient Education: Patient Medication Summary Completed 09/22/2013 Appointment: June Flores WPtel: [address] [place] [address] ACUTE ILLNESS 08/27/2013 Patient Education: Patient Medication Summary Completed 08/27/2013 Visit Plan: Proceed with CT scan of head /neck Proceed with occipital nerve injections Butrans 20mcg patch weekly until can get into see Dr. Mcdonough for injections 08/04/2013 Appointment: María Elena Appiah WPtel: [address] [place] [address] FOLLOW UP 08/04/2013 Patient Education: Patient Medication Summary Completed 08/04/2013 Visit Plan: OMT done Daily neck stretche s, moist heat Increase Celebrex to 200mg BID Add flexeril 07/23/2013 Appointment: María Elena Appiah WPtel: [address] [place] [address] 07/22 voicemail FOLLOW UP 07/23/2013 Patient Education: Patient Medication Summary Completed 07/23/2013 Appointment: María Elena Appiah WPtel: [address] [place] [address] ACUTE ILLNESS 06/23/2013 Patient Education: Patient Medication Summary Completed 06/23/2013 Appointment: María Elena Appiah WPtel: [address] [place] [address] ACUTE ILLNESS 05/26/2013 Patient Education: Patient Medication Summary Completed 05/26/2013 Visit Plan: Decrease clonidine to 0.1mg TID If BP remains stable consider decreasing amlodopine Prednisone for 5 days BP check in 1mo 04/16/2013 Appointment: María Elena Appiah WPtel: [address] [place] [address] 04/14 pt called and confirmed appt FOLLOW UP 04/16/2013 Patient Education: Patient Medication Summary Completed 04/16/2013 Appointment: María Elena Appiah WPtel: [address] [place], [place] [phone] ACUTE ILLNESS 03/05/2013 Patient Education: Patient Medication Summary Completed 03/05/2013 Visit Plan: Pt has MARIA ELENA on with Dr. Mcdonough Continue Butrans patch Refill Hydrocodone early tomorrow 12/23/2012 Appointment: María Elena Appiah WPtel: [address] [place], [place] [id number] FOLLOW UP 12/23/2012 Patient Education: Patient Medication Summary Completed 12/23/2012 Appointment: Lashawn Eckert WPtel: [address] [place] [address] ACUTE ILLNESS 12/16/2012 Patient Education: Patient Medication Summary Completed 12/16/2012 Visit Plan: Proceed with updated MRI of LS spine Continue gabapentin and add soma and diclofenac Will likely need to go for another epidural 12/09/2012 Appointment: María Elena Appiah WPtel: [address] [place], [place] [id number] ACUTE ILLNESS 12/09/2012 Patient Education: Patient Medication Summary Completed 12/09/2012 Visit Plan: Injection as above Finish me drol dose pack Chiropracter this afternoon 12/04/2012 Appointment: María Elena Appiah WPtel: [address] [place], [place] [id number] ACUTE ILLNESS 12/04/2012 Patient Education: Patient Medication Summary Completed 12/04/2012 Appointment: Mary Tillman WPtel: [address] [place], [place] [id number] FOLLOW UP 11/22/2012 Patient Education: Patient Medication Summary Completed 11/22/2012 Appointment: María Elena Appiah WPtel: [address] [place], [place] [phone] ACUTE ILLNESS 11/21/2012 Patient Education: Patient Medication Summary Completed 11/21/2012 Appointment: María Elena Appiah WPtel: [address] [place] [address] BP CHECK 11/07/2012 Patient Education: Patient Medication [...] re-check. 10/29/2012 Appointment: Lashawn Eckert WPtel: [address] [place] [address] ACUTE ILLNESS 10/29/2012 Patient Education: Patient Medication Summary Completed 10/29/2012 Appointment: María Elena Appiah WPtel: [address] [place] [address] ACUTE ILLNESS 10/14/2012 Patient Education: Patient Medication Summary Completed 10/14/2012 Appointment: María Elena Appiah WPtel: [address] [place] [address] 09/27/2012 Patient Education: Patient Medication Summary Completed 09/27/2012 Appointment: María Elena Appiah WPtel: [address] [place] [address] ACUTE ILLNESS 09/25/2012 Patient Education: Patient Medication Summary Completed 09/25/2012 Appointment: María Elena Appiah WPtel: [address] [place] [address] BP CHECK 09/24/2012 Appointment: María Elena Appiah WPtel: [address] [place] [address] ACUTE ILLNESS 08/29/2012 Patient Education: Patient Medication Summary Completed 08/29/2012 Visit Plan: Cryotherapy as above See Karlos m for right ear lesion--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 ACUTE ILLNESS 05/06/2012 Patient Education: Patient Medication Summary Completed 05/06/2012 Visit Plan: Pt wants to hold on any furt her sleep medications 04/03/2012 Appointment: María Elena Appiah WPtel: [address] [place] [address] FOLLOW UP 04/03/2012 Patient Education: Patient Medication Summary Completed 04/03/2012 Appointment: María Elena Appiah WPtel: [address] [place] [address] FOLLOW UP 03/19/2012 Patient Education: Patient Medication Summary Completed 03/19/2012 Appointment: María Elena Appiahtel: [address] [place] [address] BP CHECK 02/22/2012 Patient Education: Patient Medication Summary Completed 02/22/2012 Appointment: María Elena Appiahtel: [address] [place] [address] BP CHECK 02/21/2012 Patient Education: Patient Medication Summary Completed 02/21/2012 Visit Plan: Doxycycline and bactroban fo r foot Supportive care on ankles and knees Add norvasc for BP 02/20/2012 Appointment: María Elena Appiahtel: [address] [place], [place] [phone] ER Follow UP 02/20/2012 Patient Education: Patient Medication Summary Completed 02/20/2012 Appointment: María Elena Appiah WPtel: [address] [place] [address] ACUTE ILLNESS 01/30/2012 Patient Education: Patient Medication Summary Completed 01/30/2012 Appointment: María Elena Appiahtel: [address] [place] [address] ACUTE ILLNESS 01/24/2012 Patient Education: Patient Medication Summary Completed 01/24/2012 Visit Plan: Daily back stretches, moist heat, Biofreeze prn OMT done 01/10/2012 Appointment: María Elena Appiah WPtel: [address] [place] [address] ACUTE ILLNESS 01/10/2012 Patient Education: Patient Medication Summary Completed 01/10/2012 Appointment: María Elena Appiah WPtel: [address] [place] [address] FOLLOW UP 12/11/2011 Patient Education: Patient Medication Summary Completed 12/11/2011 Appointment: María Elena Appiah WPtel: [address] [place] [address] ACUTE ILLNESS 11/09/2011 Patient Education: Patient Medication Summary Completed 11/09/2011 Appointment: María Elena Appiahtel: [address] [place] [address] ACUTE ILLNESS 09/13/2011 Patient Education: Patient Medication Summary Completed 09/13/2011 Visit Plan: Check CBC, TSH, Free T4, CMP , ESR, Vit D, B12 now Start Prednisone today 08/31/2011 Appointment: María Elena Appiahtel: [address] [place] [address] ACUTE ILLNESS 08/31/2011 Patient Education: Patient Medication Summary Completed 08/31/2011 Appointment: María Elena Appiah WPtel: [address] [place] [address] [place] INJECTION 07/20/2011 Patient Education: Patient Medication Summary Completed 07/20/2011 Visit Plan: Continue current meds Monite r BP Cont stretches from PT 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 07/06/2011 Appointment: María Elena Appiah WPtel: [address] [place] [address] [place] FOLLOW UP 07/06/2011 Patient Education: Patient Medication Summary Completed 07/06/2011 Appointment: María Elena Appiah WPtel: [address] [place] [address] [place] BP CHECK 06/06/2011 Patient Education: Patient Medication Summary Completed 06/06/2011 Visit Plan: Add Bystolic at 2.5mg QAM Ad d Robaxin 750mg 2 po q HS BP check in 2wks 05/22/2011 Appointment: María Elena Appiah WPtel: [address] [place] [address] FOLLOW UP 05/22/2011 Patient Education: Patient Medication Summary Completed 05/22/2011 Appointment: María Elena Appiah WPtel: [address] [place] [address] ER Follow UP 05/09/2011 Patient Education: Patient Medication Summary Completed 05/09/2011 Appointment: María Elena Appiahtel: [address] [place] [address] FOLLOW UP 02/22/2011 Visit Plan: Rx written for Hydrocodone 1 0/325mg #240 See Ortho 02/14/2011 Appointment: María Elena Appiah WPtel: [address] [place] [address] OMT 02/14/2011 Patient Education: Patient Medication Summary [...] work. 02/03/2011 Appointment: Lashawn Eckert WPtel: [address] [place] [address] ACUTE ILLNESS 02/03/2011 Patient Education: Patient Medication Summary Completed 02/03/2011 Visit Plan: OMT done Cont daily stretche s 01/31/2011 Appointment: María Elena Appiah WPtel: [address] [place] [address] ACUTE ILLNESS 01/31/2011 Patient Education: Patient Medication Summary Completed 01/31/2011 Visit Plan: Continue pain meds OMT done Proceed with PT No work this summer01/25/2011 Appointment: María Elena Appiah WPtel: [address] [place] [address] ACUTE ILLNESS 01/25/2011 Patient Education: Patient Medication Summary Completed 01/25/2011 Visit Plan: Start PT Long discussion abo ut getting pain meds from only us and can only have max of 4grams of tylenol per day Change to Hydrocodone 10/325mg 1- 2 po TID prn pain--#180 called to [facility] 01/18/2011 Appointment: María Elena Appiah WPtel: [address] [place] [address] FOLLOW UP 01/18/2011 Patient Education: Patient Medication Summary Completed 01/18/2011 Visit Plan: Daily back stretches, moist heat, Biofreeze prn 11/29/2010 Appointment: María Elena Appiah WPtel: [address] [place] [address] ER Follow UP 11/29/2010 Patient Education: Patient Medication Summary Completed 11/29/2010 Visit Plan: Saline nasal flushes prn. Ty lenol/Motrin prn headache. Notify if persists/symptoms worsening. Finish augmentin Add Medrol Dose Pack 10/10/2010 Appointment: María Elena Appiah WPtel: [address] [place] [address] ACUTE ILLNESS 10/10/2010 Patient Education: Patient Medication Summary Completed 10/10/2010 Visit Plan: Cryotherapy x3 to multiple l esions on both forearms 07/19/2010 Appointment: María Elena Appiah WPtel: [address] [place] [address] OFFICE SURGERY 07/19/2010 Patient Education: Patient Medication Summary Completed 07/19/2010 Appointment: María Elena Appiah WPtel: [address] [place] [address] BP CHECK 07/06/2010 Patient Education: Patient Medication Summary Completed 07/06/2010 Appointment: María Elena Appiah WPtel: [address] [place] [address] BP CHECK 06/30/2010 Patient Education: Patient Medication Summary Completed 06/30/2010 Appointment: María Elena Appiah WPtel: [address] [place] [address] BP CHECK 06/20/2010 Patient Education: Patient Medication Summary Completed 06/20/2010 Visit Plan: Change Diovan to Exforge 160 /5mg QD OMT done to thoracics BP check in 2wks 06/07/2010 Appointment: María Elena Appiah WPtel: [address] [place], [place] [phone] FOLLOW UP 06/07/2010 Patient Education: Patient Medication Summary Completed 06/07/2010 Appointment: María Elena Appiah WPtel: [address] [place] [address] [place] BP CHECK 06/03/2010 Patient Education: Patient Medication Summary Completed 06/03/2010 Appointment: María Elena Appiah WPtel: [address] [place] [address] [place] BP CHECK 06/01/2010 Patient Education: Patient Medication Summary Completed 06/01/2010 Visit Plan: Irritated skin tags to left neck x2 excised at base with scissors and base cauterized 05/30/2010 Appointment: María Elena Appiahtel: [address] [place], [place] [phone] OFFICE SURGERY 05/30/2010 Patient Education: Patient Medication Summary Completed 05/30/2010 Visit Plan: Saline nasal flushes prn. Ty lenol/Motrin prn headache. Notify if persists/symptoms worsening. Restart Nasonex Has allergy testing set for May 25 04/27/2010 Appointment: María Elena Appiahtel: [address] [place], [place] [id number] ACUTE ILLNESS 04/27/2010 Patient Education: Patient Medication Summary Completed 04/27/2010 Visit Plan: Saline nasal flushes prn. Ty lenol/Motrin prn headache. Notify if persists/symptoms worsening. Omnaris BID plus injections 04/05/2010 Appointment: María Elena Appiahtel: [address] [place], [place] [id number] ACUTE ILLNESS 04/05/2010 Patient Education: Patient Medication Summary Completed 04/05/2010 Visit Plan: Saline nasal flushes prn. Ty lenol/Motrin prn headache. Notify if persists/symptoms worsening. 03/09/2010 Appointment: María Elena Appiahtel: [address] [place], [place] [phone] ACUTE ILLNESS 03/09/2010 Patient Education: Patient Medication Summary Completed 03/09/2010 Visit Plan: Cont Clonidine as is Cont Pr emarin Fwup with surgery as scheduled 03/03/2010 Appointment: María Elena Appiahtel: [address] [place], [place] [phone] FOLLOW UP 03/03/2010 Patient Education: Patient Medication Summary Completed 03/03/2010 Visit Plan: Check Pelvic US now Dukee tacho Sal C vs Hysterectomy 01/17/2010 [facility]ment[facility] [address] [id number] [facility] 01/17/2010 Patient Education: Patient Medication Summary Completed 01/17/2010 Visit Plan: Check fasting lab and schedu le Mammogram 2gm Na Diet Trial of Ambien 10mg qhs Fwup pending lab results 12/27/2009 Appointment: María Elena Appiah WPtel: [address] [facility] ESTABLISHED PATIENT 12/27/2009 Patient Education: Patient Medication Summary Completed 12/27/2009 Referral: Canelo Overton WPtel: [address] [id number] [place] Referral Initiated Referral: Philipp Flores WPtel: [address] [id number] [place] Referral Appointment Requested Instructions Comment . [...]
--- OUTSIDE RECORDS SUMMARY | 2020-03-13 06:58 | XMS REPORT | CCD ---
Author Author Gale Appiah D.O. 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 Name Role Phone María Elena Appiah D.O., PP Unavailable CCM Unavailable Summary Purpose Interface Exchange Family History Family History data not found Social History Social History Element Codes Description Effective Dates Tobacco history SNOMED CT: 031640057 Never smoker 05/22/2011 Allergies, Adverse Reactions, Alerts [...] Instructions duloxetine 60 mg capsule,delayed release RxNorm: 299993 TAKE ONE CAPSULE BY MOUTH DAILY 09/11/2019 No Stop Date Active Lipitor 10 mg tablet RxNorm: 394925 TAKE ONE TABLET BY MOUTH AT BEDTIME 09/11/2019 No Stop Date Active lisinopril 20 mg tablet RxNorm: 780370 TAKE ONE TABLET BY MOUTH DAILY .... THIS REPLACE 10MG TABLETS 09/11/2019 No Stop Date Active triamterene 75 mg-hydrochlorothiazide 50 mg tablet RxNorm: 3 04532 TAKE ONE TABLET BY MOUTH DAILY 09/11/2019 No Stop Date Active allopurinol 300 mg tablet RxNorm: 741775 TAKE ONE TABLET BY LOPEZ TH DAILY 09/11/2019 No Stop Date Active celecoxib 200 mg capsule RxNorm: 317946 TAKE ONE CAPSUL E BY MOUTH TWICE A DAY NEEDED FOR PAIN 09/11/2019 No Stop Date Active clonidine HCl 0.1 mg tablet RxNorm: 075167 TAKE ONE TAB LET BY MOUTH FOUR TIMES A DAY 09/11/2019 No Stop Date Active doxepin 25 mg capsule RxNorm: 9339652 1 Capsule(s) Oral every night at bedtime as needed for sleep 08/21/2019 11/18/2019 Active hydrocodone 10 mg-acetaminophen 325 mg tablet RxNorm: 651154 1-2 Tablet(s) PO TID 08/12/2019 No Stop Date Active as needed for pa in - Previous quantity #240, will start dosing for #180 in April 2011 per Doctor Td. Medrol (Dustin) 4 mg tablets in a dose pack RxNorm: 405640 Tablet(s) Oral As Directed 07/21/2019 No Stop Date Active Premarin 1.25 mg tablet RxNorm: 307555 1 Tablet(s) Oral QD 07/02/20 19 03/28/2020 Active hydrocodone 10 mg-acetaminophen 325 mg tablet RxNorm: 091765 1-2 Tablet(s) PO TID 07/01/2019 08/11/2019 Inactive as needed for pa in - Previous quantity #240, will start dosing for #180 in April 2011 per Doctor Td. gabapentin 300 mg capsule RxNorm: 073485 1 Capsule(s) PO QHS 201809/24/2019 Active celecoxib 200 mg capsule RxNorm: 458650 1 Capsule(s) Or al two times a day as needed for pain 06/27/2019 06/27/2019 Inactive Singulair 10 mg tablet RxNorm: 576119 TAKE ONE TABLET BY MOUTH JOSÉ Y 06/24/2019 No Stop Date Active furosemide 40 mg tablet RxNorm: 815011 TAKE ONE TABLET BY MOUTH EVERY MORNING NEEDED FOR EDEMA . TAKE WITH POTASSIUM 06/24/2019 No Stop Date Active doxepin 25 mg capsule RxNorm: 8158416 TAKE ONE CAPSULE B Y MOUTH EVERY NIGHT AT BEDTIME NEEDED FOR SLEEP 06/24/2019 08/20/2019 Inactive lisinopril 20 mg tablet RxNorm: 215028 TAKE ONE TABLET BY MOUTH DAILY .... THIS REPLACE 10MG TABLETS 06/24/2019 09/10/2019 Inactive nystatin-triamcinolone 100,000 unit/g-0.1 % topical cream Rx Norm: 0076950 1 Application Topical two times a day 06/12/2019 06/19/2019 Inactive apply BID for 1 week nystatin-triamcinolone 100,000 unit/g-0.1 % topical cream Rx Norm: 0587075 1 Application Topical two times a day 06/12/2019 06/11/2019 Inactive apply BID for 1 week hydrocodone 10 mg-acetaminophen 325 mg tablet RxNorm: 960866 1-2 Tablet(s) PO QID as needed for pain MUST LAST 30 DAYS 05/28/2019 06/26/2019 Inactiv e (Response to an electronic controlled substance refill request - RxReferenceNumber: [id number]) baclofen 20 mg tablet RxNorm: 256826 1 Tablet(s) PO TID as needed for muscle spasm 05/19/2019 05/27/2019 Inactive gabapentin 300 mg capsule RxNorm: 586392 1 Capsule(s) PO QHS 201805/27/2019 Inactive lisinopril 20 mg tablet RxNorm: 008648 1 Tablet(s) PO Q D TAKE ONE TABLET BY MOUTH DAILY, REPLACES 10 MG DOSE 05/19/2019 06/23/2019 Inactive doxepin 25 mg capsule RxNorm: 4892251 TAKE ONE CAPSULE B Y MOUTH EVERY NIGHT AT BEDTIME NEEDED FOR SLEEP 05/16/2019 06/14/2019 Inactive lisinopril 20 mg tablet RxNorm: 122379 TAKE ONE TABLET BY MOUTH DAILY, REPLACES 10 MG DOSE 05/16/2019 05/18/2019 Inactive Singulair 10 mg tablet RxNorm: 806733 TAKE ONE TABLET BY MOUTH JOSÉ Y 05/16/2019 06/14/2019 Inactive gabapentin 300 mg capsule RxNorm: 385422 1 Capsule(s) PO QHS 201805/04/2019 Inactive estropipate 1.5 mg tablet RxNorm: 040423 1 Tablet(s) PO QD 05/05/2005/27/2019 Inactive estropipate 1.5 mg tablet RxNorm: 810843 1 Tablet(s) PO QD 05/05/2005/04/2019 Inactive gabapentin 300 mg capsule RxNorm: 945460 1 Capsule(s) PO QHS 201805/18/2019 Inactive hydrocodone 10 mg-acetaminophen 325 mg tablet RxNorm: 829158 1-2 Tablet(s) PO QID as needed for pain MUST LAST 30 DAYS 04/25/2019 05/24/2019 Inactiv e (Response to an electronic controlled substance refill request - RxReferenceNumber: [id number]) metoprolol tartrate 100 mg tablet RxNorm: 858647 TAKE O NE TABLET BY MOUTH TWICE A DAY 04/24/2019 06/22/2019 Inactive cyclobenzaprine 10 mg tablet RxNorm: 119300 TAKE ONE TA BLET BY MOUTH THREE TIMES A DAY NEEDED FOR MUSCLE SPASMS 04/24/2019 05/18/2019 Inactive Lyrica 75 mg capsule RxNorm: 728823 1 Capsule(s) PO QHS 03/25/2019 Inactive Klor-Con 8 mEq tablet,extended release RxNorm: 504204 T FARRUKH ONE TABLET BY MOUTH TWICE A DAY 03/21/2019 05/19/2019 Inactive duloxetine 60 mg capsule,delayed release RxNorm: 706886 TAKE ONE CAPSULE BY MOUTH DAILY 03/21/2019 05/19/2019 Inactive triamterene 75 mg-hydrochlorothiazide 50 mg tablet RxNorm: 3 62624 TAKE ONE TABLET BY MOUTH DAILY 03/21/2019 05/19/2019 Inactive Lipitor 10 mg tablet RxNorm: 399554 TAKE ONE TABLET BY MOUTH AT BEDTIME 03/21/2019 09/10/2019 Inactive clonidine HCl 0.1 mg tablet RxNorm: 491741 TAKE ONE TAB LET BY MOUTH FOUR TIMES A DAY 03/21/2019 05/19/2019 Inactive allopurinol 300 mg tablet RxNorm: 333619 TAKE ONE TABLET BY LOPEZ TH DAILY 03/21/2019 05/19/2019 Inactive hydrocodone 10 mg-acetaminophen 325 mg tablet RxNorm: 747344 1-2 Tablet(s) PO QID as needed for pain MUST LAST 30 DAYS 02/28/2019 03/29/2019 Inactiv e (Response to an electronic controlled substance refill request - RxReferenceNumber: [id number]) furosemide 40 mg tablet RxNorm: 851013 TAKE ONE TABLET BY MOUTH EVERY MORNING NEEDED FOR EDEMA . TAKE WITH POTASSIUM 02/21/2019 03/22/2019 Inactive cyclobenzaprine 10 mg tablet RxNorm: 803627 TAKE ONE TA BLET BY MOUTH THREE TIMES A DAY NEEDED FOR MUSCLE SPASMS 02/21/2019 04/21/2019 Inactive lisinopril 20 mg tablet RxNorm: 847947 TAKE ONE TABLET BY MOUTH DAILY, REPLACES 10 MG DOSE 02/21/2019 05/15/2019 Inactive doxepin 25 mg capsule RxNorm: 4481835 TAKE ONE CAPSULE B Y MOUTH EVERY NIGHT AT BEDTIME NEEDED FOR SLEEP 02/21/2019 05/15/2019 Inactive nystatin 100,000 unit/gram topical cream RxNorm: 852995 APPLY TO AFFECTED AREA(S) TWO TIMES A DAY 02/21/2019 03/22/2019 Inactive estradiol 1 mg tablet RxNorm: 642810 2 Tablet(s) PO QD replaces premarin 01/22/2019 05/04/2019 Inactive lisinopril 20 mg tablet RxNorm: 933069 TAKE ONE TABLET BY MOUTH DAILY, REPLACES 10 MG DOSE 01/20/2019 02/18/2019 Inactive cyclobenzaprine 10 mg tablet RxNorm: 291575 TAKE ONE TA BLET BY MOUTH THREE TIMES A DAY NEEDED FOR MUSCLE SPASMS 01/20/2019 02/18/2019 Inactive metoprolol tartrate 100 mg tablet RxNorm: 891476 TAKE O NE TABLET BY MOUTH TWICE A DAY 01/20/2019 02/18/2019 Inactive cyclobenzaprine 10 mg tablet RxNorm: 120011 TAKE ONE TA BLET BY MOUTH THREE TIMES A DAY NEEDED FOR MUSCLE SPASMS 12/19/2018 01/17/2019 Inactive lisinopril 20 mg tablet RxNorm: 189953 TAKE ONE TABLET BY MOUTH DAILY, REPLACES 10 MG DOSE 12/19/2018 01/17/2019 Inactive duloxetine 60 mg capsule,delayed release RxNorm: 592464 TAKE ONE CAPSULE BY MOUTH DAILY 12/19/2018 01/17/2019 Inactive Lipitor 10 mg tablet RxNorm: 809022 TAKE ONE TABLET BY MOUTH AT BEDTIME 12/19/2018 01/17/2019 Inactive cyclobenzaprine 10 mg tablet RxNorm: 482958 1 Tablet(s) PO TID as needed for muscle spasm 11/19/2018 12/18/2018 Inactive Singulair 10 mg tablet RxNorm: 099099 1 Tablet(s) PO QD 11/19/2018 Inactive lisinopril 20 mg tablet RxNorm: 115354 TAKE ONE TABLET BY MOUTH DAILY, REPLACES 10 MG DOSE 11/15/2018 12/18/2018 Inactive hydrocodone 10 mg-acetaminophen 325 mg tablet RxNorm: 060037 1-2 Tablet(s) PO QID as needed for pain MUST LAST 30 DAYS 11/13/2018 12/12/2018 Inactiv e (Response to an electronic controlled substance refill request - RxReferenceNumber: [id number]) nystatin 100,000 unit/gram topical cream RxNorm: 275887 APPLY TO AFFECTED AREA(S) TWO TIMES A DAY 10/23/2018 11/06/2018 Inactive lisinopril 20 mg tablet RxNorm: 506386 1 Tablet(s) PO QD replac es 10mg dose 10/18/2018 11/14/2018 Inactive hydrocodone 10 mg-acetaminophen 325 mg tablet RxNorm: 301915 1-2 Tablet(s) QID as needed for pain MUST LAST 30 DAYS 10/08/2018 11/06/2018 Inactive (Response to an electronic controlled substance refill request - RxReferenceNumber: [id number]) lisinopril 10 mg tablet RxNorm: 737898 1 Tablet(s) PO QD 10/03/2018 0 01/21/2019 Inactive Celebrex 200 mg capsule RxNorm: 706153 TAKE ONE CAPSULE BY MOUT H TWICE A DAY 09/30/2018 05/04/2019 Inactive cyclobenzaprine 10 mg tablet RxNorm: 157821 TAKE ONE TA BLET BY MOUTH THREE TIMES A DAY NEEDED FOR MUSCLE SPASMS 09/30/2018 11/18/2018 Inactive doxepin 25 mg capsule RxNorm: 5947949 TAKE ONE CAPSULE B Y MOUTH EVERY NIGHT AT BEDTIME NEEDED 09/05/2018 10/16/2018 Inactive omeprazole 40 mg capsule,delayed release RxNorm: 844286 TAKE ONE CAPSULE BY MOUTH DAILY 09/05/2018 01/21/2019 Inactive furosemide 40 mg tablet RxNorm: 319297 TAKE ONE TABLET BY MOUTH EVERY MORNING NEEDED FOR EDEMA . TAKE WITH POTASSIUM 09/05/2018 11/03/2018 Inactive phentermine 37.5 mg tablet RxNorm: 161655 1 Tablet(s) PO QAM 201701/21/2019 Inactive doxepin 25 mg capsule RxNorm: 8093838 1 Capsule(s) PO QH S as needed for sleep TAKE ONE CAPSULE BY MOUTH EVERY NIGHT AT BEDTIME NEEDED 08/27/2018 09/04/2018 Inactive Keflex 500 mg capsule RxNorm: 538172 1 Capsule(s) PO TID 08/09/2018 1 10/19/2017 Inactive Diflucan 100 mg tablet RxNorm: 803055 1 Tablet(s) PO QD 08/09/2018 Inactive Premarin 1.25 mg tablet RxNorm: 603531 2 Tablet(s) PO QD 08/09/2018 0 05/04/2019 Inactive Zofran ODT 4 mg disintegrating tablet RxNorm: 039331 1 Tablet(s) PO Q4H as needed for nausea 08/09/2018 01/21/2019 Inactive metoprolol tartrate 100 mg tablet RxNorm: 653508 TAKE O NE TABLET BY MOUTH TWICE A DAY 2018 10/04/2018 Inactive doxepin 25 mg capsule RxNorm: 6393879 TAKE ONE CAPSULE B Y MOUTH EVERY NIGHT AT BEDTIME NEEDED 2018 08/26/2018 Inactive cyclobenzaprine 10 mg tablet RxNorm: 308432 TAKE ONE TA BLET BY MOUTH THREE TIMES A DAY NEEDED FOR MUSCLE SPASMS 2018 09/29/2018 Inactive hydrocodone 10 mg-acetaminophen 325 mg tablet RxNorm: 721476 1-2 Tablet(s) QID as needed for pain MUST LAST 30 DAYS 07/29/2018 08/27/2018 Inactive (Response to an electronic controlled substance refill request - RxReferenceNumber: [id number]) nystatin 100,000 unit/gram topical powder RxNorm: 099209 Applic ation TOP BID 07/22/2018 08/04/2018 Inactive doxepin 25 mg capsule RxNorm: 9843343 1 Capsule(s) PO QHS as needed 07/22/2018 08/05/2018 Inactive triamterene 75 mg-hydrochlorothiazide 50 mg tablet RxNorm: 3 67795 TAKE ONE TABLET BY MOUTH DAILY 07/05/2018 10/02/2018 Inactive duloxetine 60 mg capsule,delayed release RxNorm: 453348 TAKE ONE CAPSULE BY MOUTH DAILY 07/05/2018 09/02/2018 Inactive Klor-Con 8 mEq tablet,extended release RxNorm: 663294 T FARRUKH ONE TABLET BY MOUTH TWICE A DAY 07/05/2018 10/02/2018 Inactive Lipitor 10 mg tablet RxNorm: 990586 TAKE ONE TABLET BY MOUTH AT BEDTIME 07/05/2018 09/02/2018 Inactive allopurinol 300 mg tablet RxNorm: 529717 TAKE ONE TABLET BY LOPEZ TH DAILY 07/05/2018 10/02/2018 Inactive clonidine HCl 0.1 mg tablet RxNorm: 170711 TAKE ONE TAB LET BY MOUTH FOUR TIMES A DAY 07/05/2018 10/02/2018 Inactive hydrocodone 10 mg-acetaminophen 325 mg tablet RxNorm: 058550 1-2 Tablet(s) QID as needed for pain MUST LAST 30 DAYS 06/28/2018 07/27/2018 Inactive (Response to an electronic controlled substance refill request - RxReferenceNumber: [id number]) MediHoney (calcium alginate-honey) 4" X 5" bandage RxNorm: 1 Application TOP QD 06/17/2018 06/26/2018 Inactive honey-hydrocolloid dressing 4" X 5" RxNorm: 1 Application TOP QD 06/17/2018 07/16/2018 Inactive furosemide 40 mg tablet RxNorm: 807014 TAKE ONE TABLET BY MOUTH EVERY MORNING NEEDED FOR EDEMA . TAKE WITH POTASSIUM 06/10/2018 07/09/2018 Inactive This is a refill request. hydrocodone 10 mg-acetaminophen 325 mg tablet RxNorm: 043727 1-2 Tablet(s) QID as needed for pain MUST LAST 30 DAYS 05/30/2018 06/27/2018 Inactive (Response to an electronic controlled substance refill request - RxReferenceNumber: [id number]) acyclovir 800 mg tablet RxNorm: 320695 1 Tablet(s) PO 5x day 201705/22/2018 Inactive Premarin 1.25 mg tablet RxNorm: 666371 1-2 Tablet(s) PO QD 05/15/2007/13/2018 Inactive cyclobenzaprine 10 mg tablet RxNorm: 116011 1 Tablet(s) PO TID as needed for muscle spasm 05/09/2018 05/08/2018 Inactive Medrol (Dustin) 4 mg tablets in a dose pack RxNorm: 350601 Tablet(s) PO As Directed 05/02/2018 06/16/2018 Inactive hydrocodone 10 mg-acetaminophen 325 mg tablet RxNorm: 990250 1-2 Tablet(s) QID as needed for pain MUST LAST 30 DAYS 04/30/2018 05/29/2018 Inactive (Response to an electronic controlled substance refill request - RxReferenceNumber: [id number]) duloxetine 60 mg capsule,delayed release RxNorm: 444481 TAKE ONE CAPSULE BY MOUTH DAILY 04/16/2018 05/15/2018 Inactive Celebrex 200 mg capsule RxNorm: 287774 TAKE ONE CAPSULE BY MOUT H TWICE A DAY 04/16/2018 06/14/2018 Inactive Singulair 10 mg tablet RxNorm: 616131 TAKE ONE TABLET BY MOUTH JOSÉ Y 04/16/2018 11/19/2018 Inactive Lipitor 10 mg tablet RxNorm: 341046 TAKE ONE TABLET BY MOUTH AT BEDTIME 04/16/2018 05/15/2018 Inactive hydrocodone 10 mg-acetaminophen 325 mg tablet RxNorm: 617466 1-2 Tablet(s) QID as needed for pain MUST LAST 30 DAYS 03/29/2018 04/27/2018 Inactive (Response to an electronic controlled substance refill request - RxReferenceNumber: [id number]) cyclobenzaprine 10 mg tablet RxNorm: 699198 1 Tablet(s) PO TID as needed for muscle spasm 03/18/2018 05/09/2018 Inactive omeprazole 40 mg capsule,delayed release RxNorm: 743234 1 Capsu le(s) PO QD 02/26/2018 08/24/2018 Inactive hydrocodone 10 mg-acetaminophen 325 mg tablet RxNorm: 502608 1-2 Tablet(s) QID as needed for pain MUST LAST 30 DAYS 02/26/2018 03/27/2018 Inactive (Response to an electronic controlled substance refill request - RxReferenceNumber: [id number]) metoprolol tartrate 100 mg tablet RxNorm: 132983 1 Tablet(s) PO BID 02/18/2018 08/05/2018 Inactive Lyrica 75 mg capsule RxNorm: 998059 1 Capsule(s) PO QHS 01/30/2018 Inactive phentermine 37.5 mg tablet RxNorm: 756630 1 Tablet(s) PO QAM 201706/16/2018 Inactive hydrocodone 10 mg-acetaminophen 325 mg tablet RxNorm: 197735 1-2 Tablet(s) QID as needed for pain MUST LAST 30 DAYS 01/29/2018 02/25/2018 Inactive (Response to an electronic controlled substance refill request - RxReferenceNumber: [id number]) Klor-Con 8 mEq tablet,extended release RxNorm: 473906 1 Tablet( s) PO BID 01/14/2018 07/04/2018 Inactive allopurinol 300 mg tablet RxNorm: 435613 1 Tablet(s) PO QD 01/15/2007/04/2018 Inactive Lipitor 10 mg tablet RxNorm: 858440 1 Tablet(s) PO QHS 01/14/201812/2017 Inactive triamterene 75 mg-hydrochlorothiazide 50 mg tablet RxNorm: 3 91731 1 Tablet(s) PO QD 01/14/2018 07/04/2018 Inactive hydrocodone 10 mg-acetaminophen 325 mg tablet RxNorm: 894007 1-2 Tablet(s) QID as needed for pain MUST LAST 30 DAYS 12/27/2017 01/25/2018 Inactive (Response to an electronic controlled substance refill request - RxReferenceNumber: [id number]) Onglyza 5 mg tablet RxNorm: 922551 1 Tablet(s) PO QD 12/18/201701/29 Inactive metformin 500 mg tablet RxNorm: 128897 1 Tablet(s) PO BID 12/11/2017 12/10/2017 Inactive metformin 500 mg tablet RxNorm: 722700 1 Tablet(s) PO BID 12/11/2017 12/17/2017 Inactive furosemide 40 mg tablet RxNorm: 319586 1 Tablet(s) PO Q AM prn edema--take with potassium 12/11/2017 06/08/2018 Inactive cyclobenzaprine 10 mg tablet RxNorm: 441144 1 Tablet(s) PO TID as needed for muscle spasm 12/11/2017 03/18/2018 Inactive hydrocodone 10 mg-acetaminophen 325 mg tablet RxNorm: 376417 1-2 Tablet(s) QID as needed for pain MUST LAST 30 DAYS 10/23/2017 11/21/2017 Inactive (Response to an electronic controlled substance refill request - RxReferenceNumber: [id number]) Lipitor 10 mg tablet RxNorm: 267299 1 Tablet(s) PO QHS 10/16/201703/2018 Inactive cyclobenzaprine 10 mg tablet RxNorm: 744406 1 Tablet(s) PO TID as needed for muscle spasm 10/09/2017 12/10/2017 Inactive hydroxyzine HCl 25 mg tablet RxNorm: 091329 1 Tablet(s) PO BID as needed for anxiety 09/20/2017 01/29/2018 Inactive Effexor XR 75 mg capsule,extended release RxNorm: 549020 1 Caps ule(s) PO QD 09/20/2017 01/29/2018 Inactive metoprolol tartrate 100 mg tablet RxNorm: 407064 1 Tablet(s) PO BID 08/20/2017 02/18/2018 Inactive baclofen 20 mg tablet RxNorm: 533440 1 Tablet(s) PO TID as needed for muscle spasm 08/20/2017 01/21/2019 Inactive clonidine HCl 0.1 mg tablet RxNorm: 193485 1 Tablet(s) PO QID 08/2005/16/2018 Inactive Seroquel 25 mg tablet RxNorm: 338468 1 Tablet(s) PO QHS 08/17/2017 Inactive Seroquel 25 mg tablet RxNorm: 102248 1 Tablet(s) PO QHS 08/17/2017 Inactive Diflucan 100 mg tablet RxNorm: 904252 TAKE ONE TABLET BY MOUTH JOSÉ Y 07/25/2017 08/07/2017 Inactive hydrocodone 10 mg-acetaminophen 325 mg tablet RxNorm: 192871 1-2 Tablet(s) QID as needed for pain MUST LAST 30 DAYS 07/19/2017 08/17/2017 Inactive (Response to an electronic controlled substance refill request - RxReferenceNumber: [id number]) clindamycin 300 mg capsule RxNorm: 188915 1 Capsule(s) PO TID 07/1907/28/2017 Inactive clotrimazole-betamethasone 1 %-0.05 % topical cream RxNorm: 263087 Application TOP BID to elbow rash 07/19/2017 06/16/2018 Inactive Singulair 10 mg tablet RxNorm: 277919 Tablet(s) TAKE ONE TABLET BY MOUTH DAILY 07/18/2017 04/13/2018 Inactive triamterene 75 mg-hydrochlorothiazide 50 mg tablet RxNorm: 3 49277 1 Tablet(s) PO QD 07/18/2017 01/14/2018 Inactive Celebrex 200 mg capsule RxNorm: 502307 Capsule(s) TAKE ONE CAPSULE BY MOUTH TWICE A DAY 07/18/2017 10/15/2017 Inactive hydrocodone 10 mg-acetaminophen 325 mg tablet RxNorm: 155998 1-2 Tablet(s) QID as needed for pain MUST LAST 30 DAYS 06/19/2017 07/18/2017 Inactive (Response to an electronic controlled substance refill request - RxReferenceNumber: [id number]) hydrocodone 10 mg-acetaminophen 325 mg tablet RxNorm: 641804 1-2 Tablet(s) QID as needed for pain MUST LAST 30 DAYS 06/19/2017 06/18/2017 Inactive (Response to an electronic controlled substance refill request - RxReferenceNumber: [id number]) baclofen 20 mg tablet RxNorm: 561446 1 Tablet(s) PO TID as needed for muscle spasm 06/18/2017 08/20/2017 Inactive Medrol (Dustin) 4 mg tablets in a dose pack RxNorm: 393134 Tablet(s) PO As Directed 06/05/2017 07/18/2017 Inactive omeprazole 40 mg capsule,delayed release RxNorm: 308856 1 Capsu le(s) PO QD 04/20/2017 10/16/2017 Inactive Premarin 1.25 mg tablet RxNorm: 289290 1-2 Tablet(s) PO QD 04/11/20 17 05/15/2018 Inactive duloxetine 60 mg capsule,delayed release RxNorm: 422213 1 Capsu le(s) PO QD 04/11/2017 09/19/2017 Inactive furosemide 40 mg tablet RxNorm: 260768 1 Tablet(s) PO Q AM prn edema--take with potassium 04/11/2017 12/11/2017 Inactive Klor-Con 8 mEq tablet,extended release RxNorm: 203180 1 Tablet( s) PO BID 04/11/2017 01/14/2018 Inactive Lipitor 10 mg tablet RxNorm: 380450 1 Tablet(s) PO QHS 04/11/201702/2018 Inactive amlodipine 5 mg-benazepril 20 mg capsule RxNorm: 845216 1 Capsu le(s) PO QD 04/11/2017 01/29/2018 Inactive allopurinol 300 mg tablet RxNorm: 330333 1 Tablet(s) PO QD 04/11/20 17 01/14/2018 Inactive clonidine HCl 0.1 mg tablet RxNorm: 522217 1 Tablet(s) PO QID 04/0508/19/2017 Inactive baclofen 20 mg tablet RxNorm: 317546 1 Tablet(s) PO TID as needed for muscle spasm 04/02/2017 06/18/2017 Inactive Premarin 1.25 mg tablet RxNorm: 735696 1-2 Tablet(s) PO QD 03/20/20 17 04/10/2017 Inactive hydrocodone 10 mg-acetaminophen 325 mg tablet RxNorm: 587985 1-2 Tablet(s) QID as needed for pain MUST LAST 30 DAYS 03/14/2017 01/21/2019 Inactive (Response to an electronic controlled substance refill request - RxReferenceNumber: [id number]) metoprolol tartrate 100 mg tablet RxNorm: 375341 1 Tablet(s) PO BID 02/12/2017 08/20/2017 Inactive hydrocodone 10 mg-acetaminophen 325 mg tablet RxNorm: 384147 1-2 Tablet(s) QID as needed for pain MUST LAST 30 DAYS 02/08/2017 03/09/2017 Inactive (Response to an electronic controlled substance refill request [id number]) metoprolol tartrate 100 mg tablet RxNorm: 117639 TAKE O NE TABLET BY MOUTH TWICE A DAY 01/11/2017 02/12/2017 Inactive metoprolol tartrate 100 mg tablet RxNorm: 754349 1 Tablet(s) PO BID 12/18/2016 12/17/2016 Inactive metoprolol tartrate 100 mg tablet RxNorm: 491221 1 Tablet(s) PO BID 12/18/2016 01/10/2017 Inactive furosemide 40 mg tablet RxNorm: 684031 1 Tablet(s) PO Q AM prn edema--take with potassium 12/13/2016 02/10/2017 Inactive amitriptyline 100 mg tablet RxNorm: 002890 1 Tablet(s) PO QHS 11/2812/12/2016 Inactive baclofen 20 mg tablet RxNorm: 257820 1 Tablet(s) PO TID as needed for muscle spasm 11/14/2016 04/01/2017 Inactive triamterene 75 mg-hydrochlorothiazide 50 mg tablet RxNorm: 3 37189 1 Tablet(s) PO QD 11/14/2016 11/13/2016 Inactive metolazone 2.5 mg tablet RxNorm: 635283 TAKE ONE TABLET BY MOUTH DAILY NEEDED FOR EDEMA 11/14/2016 12/12/2016 Inactive triamterene 75 mg-hydrochlorothiazide 50 mg tablet RxNorm: 3 65270 1 Tablet(s) PO QD 11/14/2016 07/18/2017 Inactive amitriptyline 50 mg tablet RxNorm: 906924 TAKE ONE TABL ET BY MOUTH AT BEDTIME NEEDED FOR SLEEP 11/14/2016 11/27/2016 Inactive Cymbalta 60 mg capsule,delayed release RxNorm: 251523 1 Capsule (s) PO QHS 11/14/2016 12/12/2016 Inactive clonidine HCl 0.1 mg tablet RxNorm: 888286 1 Tablet(s) PO QID 11/1304/04/2017 Inactive amitriptyline 50 mg tablet RxNorm: 300317 1 Tablet(s) P O QHS as needed for sleep 11/01/2016 11/27/2016 Inactive duloxetine 60 mg capsule,delayed release RxNorm: 466131 TAKE ONE CAPSULE BY MOUTH DAILY 10/20/2016 01/17/2017 Inactive allopurinol 300 mg tablet RxNorm: 586339 TAKE ONE TABLET BY LOPEZ TH DAILY 10/20/2016 01/16/2017 Inactive Lyrica 75 mg capsule RxNorm: 659717 TAKE ONE CAPSULE BY MOUTH EVERY NIGHT AT BEDTIME 10/20/2016 12/10/2016 Inactive Klor-Con 8 mEq tablet,extended release RxNorm: 509802 T FARRUKH ONE TABLET BY MOUTH TWICE A DAY 10/20/2016 01/17/2017 Inactive Celebrex 200 mg capsule RxNorm: 756049 TAKE ONE CAPSULE BY MOUT H TWICE A DAY 10/20/2016 07/18/2017 Inactive Bystolic 10 mg tablet RxNorm: 101121 TAKE ONE TABLET BY MOUTH EVERY NIGHT AT BEDTIME 10/20/2016 12/17/2016 Inactive amlodipine 5 mg-benazepril 20 mg capsule RxNorm: 752900 TAKE ONE CAPSULE BY MOUTH EVERY NIGHT AT BEDTIME -- TO REPLACE AMLODOPINE 10/20/20162016 Inactive Lipitor 10 mg tablet RxNorm: 260017 TAKE ONE TABLET BY MOUTH EVERY NIGHT AT BEDTIME 10/20/2016 01/17/2017 Inactive alprazolam 0.5 mg tablet RxNorm: 461410 3 Tablet(s) PO QHS as needed for sleep/anxiety 09/20/2016 10/31/2016 Inactive Tamiflu 75 mg capsule RxNorm: 840572 1 Capsule(s) PO QD 09/19/2016 Inactive Lyrica 75 mg capsule RxNorm: 459775 1 Capsule(s) PO QHS 09/19/2016 Inactive prednisone 20 mg tablet RxNorm: 126324 1 Tablet(s) PO QD 08/10/2016 1 10/17/2015 Inactive doxycycline hyclate 100 mg capsule RxNorm: 5118779 1 Capsule(s) PO BID 08/10/2016 08/19/2016 Inactive Medrol (Dustin) 4 mg tablets in a dose pack RxNorm: 509067 Tablet(s) PO As Directed 07/31/2016 08/22/2016 Inactive Singulair 10 mg tablet RxNorm: 042167 TAKE ONE TABLET BY MOUTH JOSÉ Y 07/27/2016 07/18/2017 Inactive hydrocodone 10 mg-acetaminophen 325 mg tablet RxNorm: 570284 1-2 Tablet(s) QID as needed for pain MUST LAST 30 DAYS 07/26/2016 08/24/2016 Inactive (Response to an electronic controlled substance refill request - RxReferenceNumber: [id number]) alprazolam 0.5 mg tablet RxNorm: 896736 3 Tablet(s) PO QHS as needed for anxiety or sleep 07/26/2016 09/20/2016 Inactive clindamycin 300 mg capsule RxNorm: 271665 1 Capsule(s) PO TID 07/2007/29/2016 Inactive Diflucan 100 mg tablet RxNorm: 756256 1 Tablet(s) PO QD 07/20/2016 Inactive Levaquin 500 mg tablet RxNorm: 438833 1 Tablet(s) PO QD 07/17/2016 Inactive Levaquin 500 mg tablet RxNorm: 788181 1 Tablet(s) PO QD 07/10/2016 Inactive Levaquin 500 mg tablet RxNorm: 500175 1 Tablet(s) PO QD 07/10/2016 Inactive mupirocin 2 % topical ointment RxNorm: 822544 TOP Apply topically to affected areas twice daily 07/06/2016 09/18/2016 Inactive Singulair 10 mg tablet RxNorm: 551871 TAKE ONE TABLET BY MOUTH JOSÉ Y 06/21/2016 01/21/2019 Inactive alprazolam 0.5 mg tablet RxNorm: 203822 TAKE THREE TABL ETS BY MOUTH AT BEDTIME NEEDED FOR SLEEP OR STRESS 05/22/2016 06/20/2016 Inactive triamterene 75 mg-hydrochlorothiazide 50 mg tablet RxNorm: 3 37525 1 Tablet(s) PO QD 04/26/2016 10/21/2016 Inactive Premarin 1.25 mg tablet RxNorm: 406832 1-2 Tablet(s) PO QD 04/26/20 16 03/20/2017 Inactive Klor-Con 8 mEq tablet,extended release RxNorm: 336932 1 Tablet( s) PO BID 04/26/2016 10/19/2016 Inactive Celebrex 200 mg capsule RxNorm: 294898 1 Capsule(s) PO BID TAKE ONE CAPSULE BY MOUTH EVERY DAY 04/26/2016 10/19/2016 Inactive Lipitor 10 mg tablet RxNorm: 650627 1 Tablet(s) PO QHS 04/26/201605/2017 Inactive allopurinol 300 mg tablet RxNorm: 320911 1 Tablet(s) PO QD TAKE ONE TABLET BY MOUTH EVERY DAY 04/26/2016 10/19/2016 Inactive amlodipine 5 mg-benazepril 20 mg capsule RxNorm: 675248 1 Capsule(s) PO QHS replaces amlodopine 04/26/2016 10/19/2016 Inactive duloxetine 60 mg capsule,delayed release RxNorm: 164677 1 Capsu le(s) PO QD 04/26/2016 10/19/2016 Inactive Bystolic 10 mg tablet RxNorm: 173979 1 Tablet(s) PO QHS 04/26/2016 Inactive Singulair 10 mg tablet RxNorm: 679116 1 Tablet(s) PO QD TAKE ONE TABLET BY MOUTH DAILY 04/26/2016 06/20/2016 Inactive clonidine HCl 0.1 mg tablet RxNorm: 088414 1 Tablet(s) PO QID 04/2610/22/2016 Inactive hydrocodone 10 mg-acetaminophen 325 mg tablet RxNorm: 353432 1-2 Tablet(s) QID as needed for pain TAKE ONE TO TWO TABLETS BY MOUTH FOUR TIMES A DAY . MUST LAST 30 DAYS 03/31/2016 04/29/2016 Inactive (Response to an electronic controlled substance refill request - RxReferenceNumber: [id number]) Klor-Con 8 mEq tablet,extended release RxNorm: 908404 T FARRUKH ONE TABLET BY MOUTH TWICE A DAY 03/24/2016 04/22/2016 Inactive prednisone 20 mg tablet RxNorm: 433522 1 Tablet(s) PO QD 03/09/2016 0 03/08/2016 Inactive prednisone 20 mg tablet RxNorm: 068603 1 Tablet(s) PO QD 03/09/2016 0 03/13/2016 Inactive alprazolam 0.5 mg tablet RxNorm: 761250 3 Tablet(s) PO QHS as needed for sleep/stress 03/02/2016 01/21/2019 Inactive mupirocin 2 % topical ointment RxNorm: 116455 TOP twice daily to affected areas of face and neck 02/21/2016 04/25/2016 Inactive clonidine HCl 0.1 mg tablet RxNorm: 272740 TAKE ONE TAB LET BY MOUTH FOUR TIMES A DAY 02/15/2016 03/15/2016 Inactive clonidine HCl 0.1 mg tablet RxNorm: 601572 1 Tablet(s) PO QID 02/1404/25/2016 Inactive Premarin 1.25 mg tablet RxNorm: 913069 1-2 Tablet(s) PO QD 02/15/20 16 03/15/2016 Inactive Klor-Con 8 mEq tablet,extended release RxNorm: 886899 T FARRUKH ONE TABLET BY MOUTH TWICE A DAY 02/15/2016 03/15/2016 Inactive potassium chloride ER 20 mEq tablet,extended release(part/cr yst) RxNorm: 135259 2 Tablet(s) PO BID 02/15/2016 03/15/2016 Inactive Macrobid 100 mg capsule RxNorm: 363660 1 Capsule(s) PO BID 01/24/20 16 01/30/2016 Inactive prednisone 20 mg tablet RxNorm: 539073 Take 3tabs PO QD x 2 days, then 2 tabs PO QD x 2 days, then 1 tab PO QD x 2 days, then 1/2 tab PO QDy x 2 days 12/23/2015 04/25/2016 Inactive Klor-Con 8 mEq tablet,extended release RxNorm: 142094 T FARRUKH ONE TABLET BY MOUTH TWICE A DAY 12/20/2015 02/14/2016 Inactive alprazolam 1 mg tablet RxNorm: 305638 1 1/2 Tablet(s) PO QHS 201501/23/2016 Inactive nystatin 100,000 unit/gram topical cream RxNorm: 877005 APPLY TO AFFECTED AREA(S) TWO TIMES A DAY 11/30/2015 12/14/2015 Inactive Singulair 10 mg tablet RxNorm: 670198 TAKE ONE TABLET BY MOUTH JOSÉ Y 11/18/2015 04/25/2016 Inactive allopurinol 300 mg tablet RxNorm: 545902 1 Tablet(s) PO QD TAKE ONE TABLET BY MOUTH EVERY DAY 10/26/2015 04/22/2016 Inactive Singulair 10 mg tablet RxNorm: 637888 TAKE ONE TABLET BY MOUTH JOSÉ Y 10/26/2015 11/17/2015 Inactive duloxetine 60 mg capsule,delayed release RxNorm: 819568 1 Capsu le(s) PO QD 10/26/2015 04/22/2016 Inactive triamterene 75 mg-hydrochlorothiazide 50 mg tablet RxNorm: 3 78435 1 Tablet(s) PO QD 10/26/2015 11/14/2016 Inactive potassium chloride ER 20 mEq tablet,extended release(part/cr yst) RxNorm: 927557 2 Tablet(s) PO BID 10/26/2015 02/14/2016 Inactive Lipitor 10 mg tablet RxNorm: 610545 1 Tablet(s) PO QHS 10/26/2015 Inactive amlodipine 5 mg-benazepril 20 mg capsule RxNorm: 479741 1 Capsule(s) PO QHS replaces amlodopine 10/26/2015 04/22/2016 Inactive Bystolic 10 mg tablet RxNorm: 969345 1 Tablet(s) PO QHS 10/26/2015 Inactive amlodipine 5 mg-benazepril 20 mg capsule RxNorm: 994206 1 Capsule(s) PO QHS replaces amlodopine 10/06/2015 10/25/2015 Inactive amlodipine 5 mg tablet RxNorm: 171490 1 Tablet(s) PO QHS 09/30/2015 0 04/25/2016 Inactive metolazone 2.5 mg tablet RxNorm: 739850 TAKE ONE TABLET BY MOUTH DAILY NEEDED FOR EDEMA 09/30/2015 01/21/2019 Inactive duloxetine 60 mg capsule,delayed release RxNorm: 288837 1 Capsu le(s) PO QD 09/30/2015 10/25/2015 Inactive cephalexin 500 mg capsule RxNorm: 599246 1 Capsule(s) PO BID 201509/23/2015 Inactive mupirocin 2 % topical ointment RxNorm: 230674 TOP twice daily to affected areas of face and neck 09/14/2015 02/20/2016 Inactive baclofen 20 mg tablet RxNorm: 608828 1 Tablet(s) PO TID as needed for muscle spasm 09/01/2015 11/14/2016 Inactive clonidine HCl 0.1 mg tablet RxNorm: 735874 1 Tablet(s) PO QID 09/0102/14/2016 Inactive alprazolam 1 mg tablet RxNorm: 274095 1 1/2 Tablet(s) PO QHS 201409/09/2015 Inactive baclofen 20 mg tablet RxNorm: 821093 1 Tablet(s) PO TID as needed for muscle spasm 07/23/2015 09/01/2015 Inactive omeprazole 40 mg capsule,delayed release RxNorm: 883819 1 Capsu le(s) PO QD 07/23/2015 04/25/2016 Inactive alprazolam 1 mg tablet RxNorm: 659889 1 1/2 Tablet(s) PO QHS 201408/10/2015 Inactive Bystolic 10 mg tablet RxNorm: 886958 1 Tablet(s) PO BID 06/24/2015 Inactive allopurinol 300 mg tablet RxNorm: 633366 1 Tablet(s) PO QD TAKE ONE TABLET BY MOUTH EVERY DAY 06/23/2015 10/20/2015 Inactive alprazolam 1 mg tablet RxNorm: 844724 1 1/2 Tablet(s) PO QHS 201407/06/2015 Inactive clonidine HCl 0.1 mg tablet RxNorm: 304680 1 Tablet(s) PO QID 06/0209/01/2015 Inactive clonidine HCl 0.1 mg tablet RxNorm: 292443 1 Tablet(s) PO QID 06/0206/01/2015 Inactive Cymbalta 60 mg capsule,delayed release RxNorm: 995818 1 Capsule (s) PO QHS 06/02/2015 08/30/2015 Inactive Cymbalta 60 mg capsule,delayed release RxNorm: 585975 1 Capsule (s) PO QHS 06/02/2015 06/01/2015 Inactive clonidine HCl 0.1 mg tablet RxNorm: 440018 1 Tablet(s) PO TID 05/3106/01/2015 Inactive replaces 0.2mg dose metolazone 2.5 mg tablet RxNorm: 956875 TAKE ONE TABLET BY MOUTH DAILY NEEDED FOR EDEMA 05/21/2015 06/19/2015 Inactive Singulair 10 mg tablet RxNorm: 499904 TAKE ONE TABLET BY MOUTH JOSÉ Y 05/21/2015 10/17/2015 Inactive Cymbalta 30 mg capsule,delayed release RxNorm: 641396 1 Capsule (s) PO QHS 05/20/2015 11/14/2016 Inactive betamethasone valerate 0.1 % topical cream RxNorm: 778165 Appli cation TOP BID 05/10/2015 04/25/2016 Inactive Bactroban 2 % topical ointment RxNorm: 177448 Application TOP BID 0 05/10/2015 06/20/2015 Inactive baclofen 20 mg tablet RxNorm: 833602 1 Tablet(s) PO TID as needed 0 04/26/2015 07/23/2015 Inactive Lipitor 10 mg tablet RxNorm: 140210 1 Tablet(s) PO QHS 04/26/201508/2016 Inactive clonidine HCl 0.1 mg tablet RxNorm: 292161 1 Tablet(s) PO TID 04/2605/30/2015 Inactive replaces 0.2mg dose Klor-Con 8 mEq tablet,extended release RxNorm: 745278 1 Tablet( s) PO BID 04/26/2015 04/25/2016 Inactive metolazone 2.5 mg tablet RxNorm: 703555 1 Tablet(s) PO QD as ne eded for edema 04/26/2015 04/25/2015 Inactive triamterene 75 mg-hydrochlorothiazide 50 mg tablet RxNorm: 3 07195 1 Tablet(s) PO QD 04/26/2015 10/22/2015 Inactive Premarin 1.25 mg tablet RxNorm: 417475 1-2 Tablet(s) PO QD 04/26/20 15 10/22/2015 Inactive Bystolic 10 mg tablet RxNorm: 376489 1 Tablet(s) PO QAM TAKE ONE TABLET BY MOUTH EVERY MORNING 04/23/2015 06/23/2015 Inactive clonidine HCl 0.1 mg tablet RxNorm: 340158 1 Tablet(s) PO TID 03/2304/25/2015 Inactive replaces 0.2mg dose nystatin 100,000 unit/gram topical cream RxNorm: 583467 Applica tion TOP BID 03/23/2015 06/20/2015 Inactive baclofen 20 mg tablet RxNorm: 693334 1 Tablet(s) PO TID as needed 0 03/23/2015 04/25/2015 Inactive Premarin 1.25 mg tablet RxNorm: 105038 1-2 Tablet(s) PO QD 03/23/20 15 04/25/2015 Inactive Klor-Con 8 mEq tablet,extended release RxNorm: 471628 1 Tablet( s) PO BID 03/23/2015 04/25/2015 Inactive cefdinir 300 mg capsule RxNorm: 929677 2 Capsule(s) PO QD 03/16/2015 03/25/2015 Inactive baclofen 20 mg tablet RxNorm: 584418 1 Tablet(s) PO TID as needed 0 03/02/2015 03/22/2015 Inactive allopurinol 300 mg tablet RxNorm: 490204 1 Tablet(s) PO QD TAKE ONE TABLET BY MOUTH EVERY DAY 02/22/2015 05/22/2015 Inactive Klor-Con M20 mEq tablet,extended release RxNorm: 014260 2 Tablet(s) PO BID to use with lasix 02/22/2015 06/20/2015 Inactive clonidine HCl 0.1 mg tablet RxNorm: 130496 1 Tablet(s) PO TID 02/1903/22/2015 Inactive replaces 0.2mg dose Lipitor 10 mg tablet RxNorm: 078917 1 Tablet(s) PO QHS 01/20/201506/2015 Inactive Lipitor 10 mg tablet RxNorm: 479257 1 Tablet(s) PO QHS 01/20/2015 Inactive Singulair 10 mg tablet RxNorm: 019628 1 Tablet(s) PO QD TAKE ONE TABLET BY MOUTH EVERY DAY 11/20/2014 05/18/2015 Inactive Lipitor 10 mg tablet RxNorm: 269088 1 Tablet(s) PO QHS 11/20/201408/2015 Inactive allopurinol 300 mg tablet RxNorm: 687326 1 Tablet(s) PO QD TAKE ONE TABLET BY MOUTH EVERY DAY 11/20/2014 02/16/2015 Inactive Bystolic 10 mg tablet RxNorm: 966070 1 Tablet(s) PO QAM TAKE ONE TABLET BY MOUTH EVERY MORNING 11/20/2014 04/22/2015 Inactive Klor-Con 8 mEq tablet,extended release RxNorm: 165305 1 Tablet( s) PO BID 11/20/2014 02/17/2015 Inactive baclofen 20 mg tablet RxNorm: 773687 1 Tablet(s) PO TID as needed 0 11/20/2014 01/21/2019 Inactive baclofen 20 mg tablet RxNorm: 090092 1 Tablet(s) PO TID as needed 0 10/27/2014 11/19/2014 Inactive baclofen 20 mg tablet RxNorm: 640283 1 Tablet(s) PO TID as needed 0 10/26/2014 03/01/2015 Inactive allopurinol 300 mg tablet RxNorm: 245141 1 Tablet(s) PO QD TAKE ONE TABLET BY MOUTH EVERY DAY 10/26/2014 11/20/2014 Inactive Bystolic 10 mg tablet RxNorm: 978019 1 Tablet(s) PO QAM TAKE ONE TABLET BY MOUTH EVERY MORNING 10/26/2014 11/20/2014 Inactive clonidine HCl 0.1 mg tablet RxNorm: 879230 1 Tablet(s) PO TID 09/2805/27/2019 Inactive replaces 0.2mg dose clonidine HCl 0.1 mg tablet RxNorm: 224320 1 Tablet(s) PO TID 09/2802/18/2015 Inactive replaces 0.2mg dose baclofen 20 mg tablet RxNorm: 154087 1 Tablet(s) PO TID as needed 1 11/01/2013 08/30/2014 Inactive Lipitor 10 mg tablet RxNorm: 829984 1 Tablet(s) PO QHS 08/31/2014 Inactive baclofen 20 mg tablet RxNorm: 618051 1 Tablet(s) PO TID as needed 1 11/01/2013 10/26/2014 Inactive triamterene 75 mg-hydrochlorothiazide 50 mg tablet RxNorm: 3 59828 1 Tablet(s) PO QD 08/31/2014 02/26/2015 Inactive Klor-Con 8 mEq tablet,extended release RxNorm: 564922 1 Tablet( s) PO BID 08/31/2014 11/20/2014 Inactive baclofen 20 mg tablet RxNorm: 866445 1 Tablet(s) PO TID as needed 1 09/30/2013 10/25/2014 Inactive baclofen 20 mg tablet RxNorm: 170742 1 Tablet(s) PO TID as needed 1 09/30/2013 08/31/2014 Inactive omeprazole 40 mg capsule,delayed release RxNorm: 308078 1 Capsu le(s) PO QD 07/21/2014 07/23/2015 Inactive Flonase 50 mcg/actuation nasal spray,suspension RxNorm: 8963 23 1 [place] NASAL BID 07/15/2014 04/09/2017 Inactive hydrocodone 10 mg-acetaminophen 325 mg tablet RxNorm: 878312 1-2 Tablet(s) QID as needed for pain TAKE ONE TO TWO TABLETS BY MOUTH FOUR TIMES A DAY . MUST LAST 30 DAYS 06/30/2014 07/27/2014 Inactive (Response to an electronic controlled substance refill request - RxReferenceNumber: [id number]) baclofen 20 mg tablet RxNorm: 233530 1 Tablet(s) PO TID as needed 1 07/31/2014 Inactive Singulair 10 mg tablet RxNorm: 453341 1 Tablet(s) PO QD TAKE ONE TABLET BY MOUTH EVERY DAY 05/25/2014 11/20/2014 Inactive Bystolic 10 mg tablet RxNorm: 536619 TAKE ONE TABLET BY MOUTH E VERY MORNING 05/25/2014 09/21/2014 Inactive allopurinol 300 mg tablet RxNorm: 035839 1 Tablet(s) PO QD TAKE ONE TABLET BY MOUTH EVERY DAY 05/25/2014 10/21/2014 Inactive baclofen 20 mg tablet RxNorm: 199705 1 Tablet(s) PO TID as needed 0 05/25/2014 06/29/2014 Inactive allopurinol 300 mg tablet RxNorm: 643615 TAKE ONE TABLET BY LOPEZ TH EVERY DAY 05/25/2014 09/21/2014 Inactive Singulair 10 mg tablet RxNorm: 196238 1 Tablet(s) PO QD TAKE ONE TABLET BY MOUTH EVERY DAY 05/25/2014 05/24/2014 Inactive Bystolic 10 mg tablet RxNorm: 079573 1 Tablet(s) PO QAM TAKE ONE TABLET BY MOUTH EVERY MORNING 05/25/2014 10/21/2014 Inactive metolazone 2.5 mg tablet RxNorm: 285988 1 Tablet(s) PO QD as ne eded for edema 05/18/2014 04/25/2015 Inactive Lasix 40 mg tablet RxNorm: 163552 1 Tablet(s) PO RAZA ramirez take potassium supplementation with this medication 05/14/2014 05/17/2014 Inactive hydrocodone 10 mg-acetaminophen 325 mg tablet RxNorm: 814210 1-2 Tablet(s) QID as needed for pain TAKE ONE TO TWO TABLETS BY MOUTH FOUR TIMES A DAY . MUST LAST 30 DAYS 05/07/2014 06/05/2014 Inactive (Response to an electronic controlled substance refill request - RxReferenceNumber: [id number]) alprazolam 0.5 mg tablet RxNorm: 755673 TAKE ONE TABLET BY MOUTH TWICE A DAY , MUST LAST 30 DAYS 05/07/2014 05/22/2016 Inactive (Response to a n electronic controlled substance refill request - RxReferenceNumber: [id number]) diclofenac sodium 75 mg tablet,delayed release RxNorm: 70627 6 1 Tablet(s) PO BID for pain 04/24/2014 07/20/2014 Inactive Celebrex 200 mg capsule RxNorm: 733193 TAKE ONE CAPSULE BY MOUT H EVERY DAY 04/24/2014 07/20/2014 Inactive alprazolam 0.5 mg tablet RxNorm: 522061 TAKE ONE TABLET BY MOUTH TWICE A DAY , MUST LAST 30 DAYS 03/24/2014 04/22/2014 Inactive (Response to a n electronic controlled substance refill request - RxReferenceNumber: [id number]) diclofenac sodium 75 mg tablet,delayed release RxNorm: 28347 6 1 Tablet(s) PO BID for pain 03/24/2014 04/24/2014 Inactive clonidine HCl 0.1 mg tablet RxNorm: 073943 1 Tablet(s) PO TID 03/2409/28/2014 Inactive replaces 0.2mg dose Klor-Con 8 mEq tablet,extended release RxNorm: 616487 1 Tablet( s) PO BID 02/26/2014 08/31/2014 Inactive diclofenac sodium 75 mg tablet,delayed release RxNorm: 97985 6 1 Tablet(s) PO BID for pain 02/25/2014 03/24/2014 Inactive hydrocodone 10 mg-acetaminophen 325 mg tablet RxNorm: 239333 1-2 Tablet(s) QID as needed for pain TAKE ONE TO TWO TABLETS BY MOUTH FOUR TIMES A DAY . MUST LAST 30 DAYS 02/25/2014 03/26/2014 Inactive (Response to an electronic controlled substance refill request - RxReferenceNumber: [id number]) alprazolam 0.5 mg tablet RxNorm: 132643 Tablet(s) PO BI D as needed for anxiety TAKE ONE TABLET BY MOUTH TWICE A DAY , MUST LAST 30 DAYS 02/25/2014 Inactive (Response to an electronic controlled [place] bstance refill request - RxReferenceNumber: [id number]) [AttnRPh: Saving apply/adjudicate RxGRP:SG20 RxBIN:[id number] RxPCN: ID#:[id number]] alprazolam 0.5 mg tablet RxNorm: 040845 Tablet(s) TAKE ONE TABLET BY MOUTH TWICE A DAY , MUST LAST 30 DAYS 01/27/2014 02/24/2014 Inactive (Respo nse to an electronic controlled substance refill request - RxReferenceNumber: [id number]) [AttnRPh: Saving apply/adjudicate RxGRP:SG20 RxBIN:[id number] RxPCN: ID#:[id number]] hydrocodone 10 mg-acetaminophen 325 mg tablet RxNorm: 948652 1-2 Tablet(s) QID as needed for pain TAKE ONE TO TWO TABLETS BY MOUTH FOUR TIMES A DAY . MUST LAST 30 DAYS 01/27/2014 02/24/2014 Inactive (Response to an electronic controlled substance refill request - RxReferenceNumber: [id number]) alprazolam 0.5 mg tablet RxNorm: 516479 TAKE ONE TABLET BY MOUTH TWICE A DAY , MUST LAST 30 DAYS 01/27/2014 01/26/2014 Inactive (Response to a n electronic controlled substance refill request - RxReferenceNumber: [id number]) Premarin 1.25 mg tablet RxNorm: 653782 1-2 Tablet(s) PO QD 01/28/20 14 07/25/2014 Inactive alprazolam 0.5 mg tablet RxNorm: 381041 TAKE ONE TABLET BY MOUTH TWICE A DAY , MUST LAST 30 DAYS 01/27/2014 01/27/2014 Inactive (Response to a n electronic controlled substance refill request - RxReferenceNumber: [id number]) hydrocodone 10 mg-acetaminophen 325 mg tablet RxNorm: 880103 TAKE ONE TO TWO TABLETS BY MOUTH FOUR TIMES A DAY . MUST LAST 30 DAYS 01/27/20142013 Inactive (Response to an electronic controlled [place] bstance refill request - RxReferenceNumber: [id number]) Celebrex 200 mg capsule RxNorm: 328113 1 Capsule(s) PO QD TAKE ONE CAPSULE BY MOUTH EVERY DAY 12/29/2013 04/27/2014 Inactive hydrocodone 10 mg-acetaminophen 325 mg tablet RxNorm: 140351 1-2 Tablet(s) PO QID as needed for severe pain 12/29/2013 01/27/2014 Inactive allopurinol 300 mg tablet RxNorm: 752648 1 Tablet(s) PO QD TAKE ONE TABLET BY MOUTH EVERY DAY 12/29/2013 05/24/2014 Inactive alprazolam 0.5 mg tablet RxNorm: 468011 TAKE ONE TABLET BY MOUTH TWICE A DAY , MUST LAST 30 DAYS 12/29/2013 01/27/2014 Inactive (Response to a n electronic controlled substance refill request - RxReferenceNumber: [id number]) Celebrex 200 mg capsule RxNorm: 797292 1 Capsule(s) PO QD TAKE ONE CAPSULE BY MOUTH EVERY DAY 12/29/2013 12/29/2013 Inactive Bystolic 10 mg tablet RxNorm: 013514 1 Tablet(s) PO QAM TAKE ONE TABLET BY MOUTH EVERY MORNING 12/29/2013 05/24/2014 Inactive Bystolic 10 mg tablet RxNorm: 864617 1 Tablet(s) PO QAM TAKE ONE TABLET BY MOUTH EVERY MORNING 12/29/2013 12/29/2013 Inactive Singulair 10 mg tablet RxNorm: 898170 1 Tablet(s) PO QD TAKE ONE TABLET BY MOUTH EVERY DAY 12/29/2013 05/25/2014 Inactive hydrocodone 10 mg-acetaminophen 325 mg tablet RxNorm: 587713 TAKE ONE TO TWO TABLETS BY MOUTH FOUR TIMES A DAY . MUST LAST 30 DAYS 12/29/20132013 Inactive (Response to an electronic controlled [place] bstance refill request - RxReferenceNumber: [id number]) Trazadone 75mg Tablet RxNorm: 1 Tablet(s) PO QHS as needed 03/23/2014 Inactive Trazadone 75mg Tablet RxNorm: 1 Tablet(s) PO QHS 12/24/20132014 Inactive Soma 350 mg tablet RxNorm: 099537 Tablet(s) PO TAKE ON E TABLET BY MOUTH THREE TIMES A DAY NEEDED FOR MUSCLE SPASMS. THIS MUST LAST 30 DAYS BETWEEN REFILLS. 12/10/2013 12/22/2013 Inactive (Appended: Cont rolled substance eRx refill - RxReferenceNumber: [id number]) diclofenac sodium 75 mg tablet,delayed release RxNorm: 68445 6 1 Tablet(s) PO BID for pain 12/10/2013 02/24/2014 Inactive allopurinol 300 mg tablet RxNorm: 865052 1 Tablet(s) PO QD 11/20/19 14 12/29/2013 Inactive alprazolam 0.5 mg tablet RxNorm: 385196 2 Tablet(s) PO BID 11/13/19 14 12/29/2013 Inactive prn clonidine 0.1 mg tablet RxNorm: 358864 1 Tablet(s) PO TID 11/12/2013 02/09/2014 Inactive replaces 0.2mg dose Klor-Con M20 mEq tablet,extended release RxNorm: 440763 2 Tablet(s) PO BID to use with lasix 11/12/2013 05/10/2014 Inactive Singulair 10 mg tablet RxNorm: 671341 1 Tablet(s) PO QD 11/12/2013 Inactive hydrocodone 10 mg-acetaminophen 325 mg tablet RxNorm: 895847 1-2 Tablet(s) PO QID as needed for severe pain 11/12/2013 12/28/2013 Inactive Bystolic 10 mg tablet RxNorm: 531264 1 Tablet(s) PO QAM 11/12/2013 Inactive Soma 350 mg tablet RxNorm: 752890 Tablet(s) PO TAKE ON E TABLET BY MOUTH THREE TIMES A DAY NEEDED FOR MUSCLE SPASMS. THIS MUST LAST 30 DAYS BETWEEN REFILLS. 10/13/2013 12/10/2013 Inactive (Appended: Cont rolled substance eRx refill - RxReferenceNumber: [id number]) hydrocodone 10 mg-acetaminophen 325 mg tablet RxNorm: 671270 1-2 Tablet(s) PO QID as needed for severe pain 10/03/2013 11/11/2013 Inactive diclofenac sodium 75 mg tablet,delayed release RxNorm: 28615 8 1 Tablet(s) PO BID for pain 09/11/2013 12/10/2013 Inactive alprazolam 0.5 mg tablet RxNorm: 715313 1 Tablet(s) PO BID May refill on 04/26/13 09/01/2013 10/30/2013 Inactive prn hydrocodone 10 mg-acetaminophen 325 mg tablet RxNorm: 618594 1-2 Tablet(s) PO QID as needed for severe pain 09/01/2013 10/02/2013 Inactive triamterene 75 mg-hydrochlorothiazide 50 mg tablet RxNorm: 3 36161 1 Tablet(s) PO QD 08/04/2013 08/31/2014 Inactive cyclobenzaprine 10 mg tablet RxNorm: 655587 1 Tablet(s) PO TID prn spasm 08/04/2013 08/13/2013 Inactive clonidine 0.1 mg tablet RxNorm: 353490 1 Tablet(s) PO TID 08/04/2013 11/11/2013 Inactive replaces 0.2mg dose cyclobenzaprine 10 mg tablet RxNorm: 950725 1 Tablet(s) PO TID prn spasm 07/23/2013 08/01/2013 Inactive hydrocodone 10 mg-acetaminophen 325 mg tablet RxNorm: 184930 2 1-2 Tablet(s) PO QID as needed for severe pain 06/09/2013 08/07/2013 Inactive Singulair 10 mg tablet RxNorm: 760101 1 Tablet(s) PO QD 05/29/2013 Inactive Klor-Con 8 mEq tablet,extended release RxNorm: 592448 1 Tablet( s) PO BID 05/29/2013 02/26/2014 Inactive allopurinol 300 mg tablet RxNorm: 846086 1 Tablet(s) PO QD 05/29/20 13 11/19/2013 Inactive Bystolic 10 mg tablet RxNorm: 162299 1 Tablet(s) PO QAM take one daily in the morning. 05/29/2013 11/11/2013 Inactive scopolamine 1.5 mg 72 hr Transderm Patch RxNorm: 386318 Application TD Q72H for motion sickness 05/26/2013 07/22/2013 Inactive Soma 350 mg tablet RxNorm: 465960 1 Tablet(s) PO TID as needed for spasm 05/19/2013 10/13/2013 Inactive diclofenac sodium 75 mg tablet,delayed release RxNorm: 43952 8 1 Tablet(s) PO BID for pain 05/14/2013 07/22/2013 Inactive allopurinol 300 mg tablet RxNorm: 174864 1 Tablet(s) PO QD 04/25/20 13 05/28/2013 Inactive alprazolam 0.5 mg tablet RxNorm: 598320 1 Tablet(s) PO BID May refill on 04/26/13 04/25/2013 06/23/2013 Inactive prn Celebrex 200 mg capsule RxNorm: 971336 1 Capsule(s) PO QD 04/16/2013 12/29/2013 Inactive alprazolam 0.5 mg tablet RxNorm: 660763 1 Tablet(s) PO BID May refill on 04/26/13 04/16/2013 04/24/2013 Inactive prn Soma 350 mg tablet RxNorm: 916111 1 Tablet(s) PO TID as needed for spasm 04/16/2013 No Stop Date Active Lasix 40 mg tablet RxNorm: 769690 1 Tablet(s) PO QAM s hould take potassium supplementation with this medication 04/16/2013 06/14/2013 Inactive clonidine 0.1 mg tablet RxNorm: 734076 1 Tablet(s) PO TID 04/16/2013 08/03/2013 Inactive replaces 0.2mg dose prednisone 20 mg tablet RxNorm: 902936 1 Tablet(s) PO BID 04/16/2013 04/20/2013 Inactive diclofenac sodium 75 mg tablet,delayed release RxNorm: 18836 8 1 Tablet(s) PO BID for pain 04/14/2013 05/13/2013 Inactive hydrocodone 10 mg-acetaminophen 325 mg tablet RxNorm: 442411 2 1-2 Tablet(s) PO QID as needed for severe pain 04/14/2013 No Stop Date Active Lasix 40 mg tablet RxNorm: 212378 1 Tablet(s) PO QAM s hould take potassium supplementation with this medication 03/31/2013 04/15/2013 Inactive Celebrex 200 mg capsule RxNorm: 112294 1 Capsule(s) PO QD 03/31/2013 04/15/2013 Inactive alprazolam 0.5 mg tablet RxNorm: 816373 1 Tablet(s) PO BID 03/28/20 13 04/15/2013 Inactive prn hydrocodone 10 mg-acetaminophen 325 mg tablet RxNorm: 656385 2 1-2 Tablet(s) PO QID as needed for severe pain 03/10/2013 No Stop Date Active metformin ER 500 mg 24 hr tablet,extended release RxNorm: 86 1018 1 Tablet(s) PO QD 03/06/2013 07/22/2013 Inactive clindamycin 300 mg capsule RxNorm: 688285 2 Capsule(s) PO TID 03/0503/14/2013 Inactive Zaroxolyn 2.5 mg tablet RxNorm: 070508 1 Tablet(s) PO QAM 03/05/2013 05/19/2015 Inactive amlodipine 10 mg tablet RxNorm: 694549 1 Tablet(s) PO QD 03/03/2013 0 05/25/2013 Inactive Norvasc 10 mg tablet RxNorm: 293185 1 Tablet(s) PO QD 02/28/201307/11 Inactive Celebrex 200 mg capsule RxNorm: 956361 1 Capsule(s) PO QD 02/28/2013 03/30/2013 Inactive diclofenac sodium 75 mg tablet,delayed release RxNorm: 06762 8 1 Tablet(s) PO BID for pain 02/14/2013 03/15/2013 Inactive Soma 350 mg tablet RxNorm: 870718 1 Tablet(s) PO TID as needed for spasm 02/14/2013 No Stop Date Active hydrocodone 10 mg-acetaminophen 325 mg tablet RxNorm: 763807 2 1-2 Tablet(s) PO QID as needed for severe pain 02/14/2013 No Stop Date Active Norvasc 10 mg tablet RxNorm: 568327 1 Tablet(s) PO QD 02/10/201302/09 Inactive Celebrex 200 mg capsule RxNorm: 637593 1 Capsule(s) PO QD 01/27/2013 01/26/2013 Inactive Premarin 1.25 mg tablet RxNorm: 938528 1-2 Tablet(s) PO QD 01/28/20 13 06/25/2013 Inactive alprazolam 0.5 mg tablet RxNorm: 441205 1 Tablet(s) PO BID 01/28/20 13 02/25/2013 Inactive prn amlodipine 5 mg tablet RxNorm: 731887 1 Tablet(s) PO QD 01/27/2013 Inactive Celebrex 200 mg capsule RxNorm: 770799 1 Capsule(s) PO QD 01/27/2013 02/27/2013 Inactive gabapentin 600 mg tablet RxNorm: 645584 1 Tablet(s) PO QHS 01/16/20 13 07/22/2013 Inactive Soma 350 mg tablet RxNorm: 279530 1 Tablet(s) PO TID as needed for spasm 01/15/2013 No Stop Date Active hydrocodone 10 mg-acetaminophen 325 mg tablet RxNorm: 210994 2 1-2 Tablet(s) PO QID as needed for severe pain 01/15/2013 No Stop Date Active Soma 350 mg tablet RxNorm: 958242 1 Tablet(s) PO TID as needed for spasm 01/13/2013 No Stop Date Active alprazolam 0.5 mg tablet RxNorm: 270214 1 Tablet(s) PO BID 12/31/19 13 01/26/2013 Inactive prn diclofenac sodium 75 mg tablet,delayed release RxNorm: 78216 8 1 Tablet(s) PO BID for pain 12/09/2012 01/07/2013 Inactive gabapentin 600 mg tablet RxNorm: 860745 1 Tablet(s) PO QHS 12/10/19 13 01/07/2013 Inactive hydrocodone 10 mg-acetaminophen 325 mg tablet RxNorm: 360440 2 1-2 Tablet(s) PO QID as needed for severe pain 12/02/2012 No Stop Date Active Levaquin 750 mg tablet RxNorm: 132630 1 Tablet(s) PO QD 11/21/2012 Inactive Singulair 10 mg tablet RxNorm: 300035 1 Tablet(s) PO QD 11/11/2012 Inactive clonidine 0.2 mg tablet RxNorm: 801895 1 Tablet(s) PO TID 11/11/2012 04/15/2013 Inactive alprazolam 0.5 mg tablet RxNorm: 281520 1 Tablet(s) PO BID 11/12/19 13 12/10/2012 Inactive prn Klor-Con 8 mEq tablet,extended release RxNorm: 243505 1 Tablet( s) PO BID 11/11/2012 03/04/2013 Inactive hydrocodone 10 mg-acetaminophen 325 mg tablet RxNorm: 633583 2 1-2 Tablet(s) PO QID as needed for severe pain 11/06/2012 No Stop Date Active alprazolam 0.5 mg tablet RxNorm: 411873 1 Tablet(s) PO BID 10/15/19 13 11/10/2012 Inactive prn hydrocodone-acetaminophen 10 mg-325 mg tablet RxNorm: 448876 2 1-2 Tablet(s) PO QID as needed for severe pain 10/10/2012 10/09/2012 Inactive allopurinol 300 mg tablet RxNorm: 598496 1 Tablet(s) PO QD 09/20/19 13 12/18/2012 Inactive alprazolam 0.5 mg tablet RxNorm: 754744 1 Tablet(s) PO BID 09/17/19 13 10/14/2012 Inactive prn hydrocodone-acetaminophen 10 mg-325 mg tablet RxNorm: 405243 2 1-2 Tablet(s) PO QID as needed for severe pain 08/22/2012 08/21/2012 Inactive Norvasc 10 mg tablet RxNorm: 191695 1 Tablet(s) PO QD 08/12/201201/10 Inactive Premarin 1.25 mg tablet RxNorm: 323753 1-2 Tablet(s) PO QD 07/30/20 12 12/26/2012 Inactive alprazolam 0.5 mg tablet RxNorm: 373391 1 Tablet(s) PO BID 07/29/20 12 08/27/2012 Inactive prn Klor-Con 8 mEq tablet,extended release RxNorm: 401267 1 Tablet( s) PO BID 07/29/2012 11/10/2012 Inactive hydrocodone-acetaminophen 10 mg-325 mg tablet RxNorm: 924811 2 1-2 Tablet(s) PO QID as needed for severe pain 07/29/2012 No Stop Date Active Premarin 1.25 mg tablet RxNorm: 873581 1-2 Tablet(s) PO QD 07/29/20 12 07/29/2012 Inactive clonidine 0.2 mg tablet RxNorm: 303088 1 Tablet(s) PO TID 07/29/2012 10/28/2012 Inactive ketorolac 10 mg tablet RxNorm: 395002 1 Tablet(s) PO QID prn mitul leonardche 07/18/2012 No Stop Date Active hydrocodone-acetaminophen 10 mg-325 mg tablet RxNorm: 025390 2 1-2 Tablet(s) PO QID as needed for severe pain 07/03/2012 No Stop Date Active amlodipine 5 mg tablet RxNorm: 917542 1 Tablet(s) PO QD 07/02/2012 Inactive allopurinol 300 mg tablet RxNorm: 965748 1 Tablet(s) PO QD 07/02/2009/19/2012 Inactive Celebrex 200 mg capsule RxNorm: 261436 1 Capsule(s) PO QD for j oint pain 06/26/2012 10/23/2012 Inactive diclofenac sodium 75 mg tablet,delayed release RxNorm: 26972 8 1 Tablet(s) PO BID for pain 06/19/2012 09/16/2012 Inactive hydrocodone-acetaminophen 10 mg-325 mg tablet RxNorm: 601542 2 1-2 Tablet(s) PO QID as needed for severe pain 06/10/2012 No Stop Date Active alprazolam 0.5 mg tablet RxNorm: 587162 1 Tablet(s) PO BID 06/03/20 12 07/02/2012 Inactive prn ketorolac 10 mg tablet RxNorm: 082643 1 Tablet(s) PO Q8H 05/27/2012 0 01/21/2019 Inactive as needed for headache hydrocodone-acetaminophen 10 mg-325 mg tablet RxNorm: 181824 2 1-2 Tablet(s) PO QID as needed for severe pain 05/15/2012 No Stop Date Active allopurinol 300 mg tablet RxNorm: 063914 1 Tablet(s) PO QD 05/14/2006/12/2012 Inactive allopurinol 300 mg tablet RxNorm: 208486 1 Tablet(s) PO QD 05/14/20 12 05/13/2012 Inactive amlodipine 5 mg tablet RxNorm: 382539 1 Tablet(s) PO QD 05/01/2012 Inactive amlodipine 5 mg Tab RxNorm: 072346 1 Tablet(s) PO QD 05/01/201204/30 Inactive Celebrex 200 mg capsule RxNorm: 061479 1 Capsule(s) PO QD for j oint pain 05/01/2012 06/25/2012 Inactive Singulair 10 mg tablet RxNorm: 301670 1 Tablet(s) PO QD 05/01/2012 Inactive alprazolam 0.5 mg tablet RxNorm: 050416 1 Tablet(s) PO BID 05/01/2005/30/2012 Inactive prn Celebrex 200 mg Cap RxNorm: 683373 1 Capsule(s) PO QD for joint radu n 05/01/2012 04/30/2012 Inactive hydrocodone-acetaminophen 10 mg-325 mg tablet RxNorm: 756807 2 1-2 Tablet(s) PO QID as needed for severe pain 04/19/2012 No Stop Date Active Lasix 40 mg tablet RxNorm: 367536 1 Tablet(s) PO RAZA alan ashley take potassium supplementation with this medication 04/05/2012 06/03/2012 Inactive alprazolam 0.5 mg Tab RxNorm: 929246 1 Tablet(s) PO BID 04/05/2012 Inactive prn hydrocodone-acetaminophen 10 mg-325 mg Tab RxNorm: 8768306 1-2 Tablet(s) PO QID as needed for severe pain 03/25/2012 03/24/2012 Inactive clonidine 0.2 mg Tab RxNorm: 528620 1 Tablet(s) PO TID 03/08/2012 Inactive alprazolam 0.5 mg Tab RxNorm: 687795 1 Tablet(s) PO BID 03/08/2012 Inactive prn Soma 350 mg tablet RxNorm: 887204 1 Tablet(s) PO TID for spasm 02/0903/18/2012 Inactive clonidine 0.2 mg tablet RxNorm: 640966 1 Tablet(s) PO TID 03/08/2012 07/28/2012 Inactive Celebrex 200 mg Cap RxNorm: 821349 1 Capsule(s) PO QD for joint radu n 03/01/2012 04/29/2012 Inactive amlodipine 5 mg Tab RxNorm: 577644 1 Tablet(s) PO QD 02/26/201202/24 Inactive amlodipine 5 mg Tab RxNorm: 787567 1 Tablet(s) PO QD 02/26/201204/25 Inactive Bactroban 2 % Ointment RxNorm: 495786 Application TOP QID to sores 02/23/2012 No Stop Date Active amlodipine 2.5 mg tablet RxNorm: 135789 1 Tablet(s) PO QHS 02/20/20 12 02/25/2012 Inactive doxycycline hyclate 100 mg Cap RxNorm: 6419944 1 Capsule(s) PO BID 02/20/2012 02/29/2012 Inactive hydrocodone-acetaminophen 10 mg-325 mg Tab RxNorm: 5689257 1-2 T ablet(s) PO QID 02/08/2012 No Stop Date Active alprazolam 0.5 mg Tab RxNorm: 144413 1 Tablet(s) PO BID 02/08/2012 Inactive prn Singulair 10 mg Tab RxNorm: 920373 1 Tablet(s) PO QD 02/08/201204/30 Inactive Soma 350 mg Tab RxNorm: 187692 1 Tablet(s) PO TID for spasm 012 03/07/2012 Inactive Soma 350 mg Tab RxNorm: 943644 1 Tablet(s) PO TID for spasm 012 02/05/2012 Inactive diclofenac sodium 75 mg tablet,delayed release RxNorm: 55721 8 1 Tablet(s) PO BID for pain 02/01/2012 03/18/2012 Inactive Celebrex 200 mg Cap RxNorm: 487980 1 Capsule(s) PO QD for joint radu n 01/30/2012 02/28/2012 Inactive Lasix 40 mg Tab RxNorm: 577899 1 Tablet(s) PO QAM 01/24/2012 03/18/20 12 Inactive potassium chloride ER 20 mEq tablet,extended release(part/cr yst) RxNorm: 213308 2 Tablet(s) PO BID 01/24/2012 02/22/2012 Inactive alprazolam 0.5 mg Tab RxNorm: 994108 1 Tablet(s) PO BID 01/11/2012 Inactive prn hydrocodone-acetaminophen 10 mg-325 mg Tab RxNorm: 7763333 1-2 T ablet(s) PO QID 01/11/2012 No Stop Date Active Ambien 10 mg Tab RxNorm: 848382 1 Tablet(s) PO QHS 01/11/2012 012 Inactive Klor-Con 8 mEq Tab RxNorm: 639267 1 Tablet(s) PO BID 01/11/201201/22 Inactive diclofenac sodium 75 mg Tab, Delayed Release RxNorm: 804318 1 Tablet(s) PO BID for pain 01/10/2012 01/31/2012 Inactive Ambien 10 mg Tab RxNorm: 232146 1 Tablet(s) PO QHS 12/11/2011 012 Inactive alprazolam 0.5 mg Tab RxNorm: 560235 1 Tablet(s) PO BID 12/11/2011 Inactive prn hydrocodone 10 mg-acetaminophen 325 mg tablet RxNorm: 166869 1-2 Tablet(s) PO TID 11/28/2011 No Stop Date Active as needed for pa in - Previous quantity #240, will start dosing for #180 in April 2011 per Doctor Td. Ambien 10 mg Tab RxNorm: 524360 1 Tablet(s) PO QHS 11/09/2011 012 Inactive alprazolam 0.5 mg Tab RxNorm: 049321 1 Tablet(s) PO BID 11/09/2011 Inactive prn hydrocodone-acetaminophen 10 mg-325 mg Tab RxNorm: 9409135 1-2 T ablet(s) PO TID 11/06/2011 No Stop Date Active as needed for pain - Previous quantity #240, will start dosing for #180 in April 2011 per Doctor Td. Singulair 10 mg Tab RxNorm: 903902 1 Tablet(s) PO QD 10/13/201110/12 Inactive Singulair 10 mg Tab RxNorm: 358437 1 Tablet(s) PO QD 10/13/201102/06 Inactive hydrocodone-acetaminophen 10 mg-325 mg Tab RxNorm: 0057931 1-2 T ablet(s) PO TID 10/10/2011 10/09/2011 Inactive as needed for pain - Previous quantity #240, will start dosing for #180 in April 2011 per Doctor Td. hydrocodone-acetaminophen 10 mg-325 mg Tab RxNorm: 0602527 1-2 T ablet(s) PO TID 10/09/2011 No Stop Date Active as needed for pain - Previous quantity #240, will start dosing for #180 in April 2011 per Doctor Td. Klor-Con 8 mEq Tab RxNorm: 619387 1 Tablet(s) PO BID 10/02/201101/09 Inactive triamterene 75 mg-hydrochlorothiazide 50 mg tablet RxNorm: 3 30649 1 Tablet(s) PO QD 09/14/2011 03/06/2013 Inactive Ambien 10 mg Tab RxNorm: 001669 1 Tablet(s) PO QHS 09/14/2011 012 Inactive hydrocodone-acetaminophen 10 mg-325 mg Tab RxNorm: 9765752 1-2 T ablet(s) PO TID 09/14/2011 No Stop Date Active as needed for pain - Previous quantity #240, will start dosing for #180 in April 2011 per Doctor Td. alprazolam 0.5 mg Tab RxNorm: 578220 1 Tablet(s) PO BID 09/14/2011 Inactive prn Zithromax 500 mg Tab RxNorm: 1169021 1 Tablet(s) PO QD 09/13/201106/2012 Inactive prednisone 20 mg Tab RxNorm: 706072 1 Tablet(s) PO BID 08/31/2011 Inactive Ambien 10 mg Tab RxNorm: 745956 1 Tablet(s) PO QHS 08/17/2011 011 Inactive hydrocodone-acetaminophen 10 mg-325 mg Tab RxNorm: 9637850 1-2 T ablet(s) PO TID 08/17/2011 No Stop Date Active as needed for pain - Previous quantity #240, will start dosing for #180 in April 2011 per Doctor Td. clonidine 0.2 mg Tab RxNorm: 707656 1 Tablet(s) PO TID 08/17/201112/2011 Inactive Ambien 10 mg Tab RxNorm: 012094 1 Tablet(s) PO QHS 08/17/2011 019 Inactive alprazolam 0.5 mg Tab RxNorm: 717197 1 Tablet(s) PO BID 08/17/2011 Inactive prn hydrocodone-acetaminophen 10 mg-325 mg Tab RxNorm: 0692569 1-2 T ablet(s) PO TID 08/17/2011 08/16/2011 Inactive as needed for pain - Previous quantity #240, will start dosing for #180 in April 2011 per Doctor Td. Singulair 10 mg Tab RxNorm: 372093 1 Tablet(s) PO QD 08/17/201108/16 Inactive Klor-Con 8 mEq Tab RxNorm: 020625 1 Tablet(s) PO QD 08/17/20112011 Inactive alprazolam 0.5 mg Tab RxNorm: 297964 1 Tablet(s) PO BID 07/20/2011 Inactive prn Ambien 10 mg Tab RxNorm: 360080 1 Tablet(s) PO QHS 07/20/2011 012 Inactive Singulair 10 mg Tab RxNorm: 368290 1 Tablet(s) PO QD 07/20/201107/19 Inactive Premarin 1.25 mg tablet RxNorm: 465284 2 Tablet(s) PO QD 07/20/2011 0 01/21/2019 Inactive Premarin 1.25 mg tablet RxNorm: 336832 1-2 Tablet(s) PO QD 07/20/20 11 12/16/2011 Inactive Premarin 1.25 mg Tab RxNorm: 996663 1-2 Tablet(s) PO QD 07/06/2011 Inactive alprazolam 0.5 mg Tab RxNorm: 467034 1 Tablet(s) PO BID 06/22/2011 Inactive prn alprazolam 0.5 mg Tab RxNorm: 248587 1 Tablet(s) PO BID 06/22/2011 Inactive prn Premarin 1.25 mg Tab RxNorm: 801488 1 Tablet(s) PO QD m ay do 90 day fill if desired 06/22/2011 07/05/2011 Inactive hydrocodone-acetaminophen 10 mg-325 mg Tab RxNorm: 8730555 1-2 T ablet(s) PO TID 06/22/2011 No Stop Date Active as needed for pain - Previous quantity #240, will start dosing for #180 in April 2011 per Doctor Td. clonidine 0.2 mg Tab RxNorm: 217323 1 Tablet(s) PO TID 05/25/201103/2011 Inactive triamterene-hydrochlorothiazide 75 mg-50 mg Tab RxNorm: 3108 18 1 Tablet(s) PO QD 05/25/2011 09/13/2011 Inactive alprazolam 0.5 mg Tab RxNorm: 354136 1 Tablet(s) PO BID 05/25/2011 Inactive prn hydrocodone-acetaminophen 10 mg-325 mg Tab RxNorm: 9956568 1-2 T ablet(s) PO TID 05/25/2011 No Stop Date Active as needed for pain - Previous quantity #240, will start dosing for #180 in April 2011 per Doctor Td. Robaxin-750 750 mg Tab RxNorm: 985637 2 Tablet(s) PO QHS 05/22/2011 1 Inactive prn spasm hydrocodone-acetaminophen 10 mg-325 mg Tab RxNorm: 1454189 1-2 T ablet(s) PO TID 04/26/2011 No Stop Date Active as needed for pain - Previous quantity #240, will start dosing for #180 in April 2011 per Doctor Td. alprazolam 0.5 mg Tab RxNorm: 500741 1 Tablet(s) PO BID 04/25/2011 Inactive prn Klor-Con 8 mEq Tab RxNorm: 098273 1 Tablet(s) PO QD 03/30/20112010 Inactive Klor-Con 8 mEq Tab RxNorm: 018009 1 Tablet(s) PO QD 03/29/20112010 Inactive hydrocodone-acetaminophen 10 mg-325 mg Tab RxNorm: 8158265 1-2 T ablet(s) PO TID 03/20/2011 04/25/2011 Inactive as needed for pain - Previous quantity #240, will start dosing for #180 in April 2011 per Doctor Td. alprazolam 0.5 mg Tab RxNorm: 547395 1 Tablet(s) PO BID prn 011 03/30/2011 Inactive Ambien 10 mg Tab RxNorm: 749659 1 Tablet(s) PO QHS 03/01/2011 011 Inactive cyclobenzaprine 10 mg Tab RxNorm: 040325 1 Tablet(s) PO TID 011 03/18/2012 Inactive cyclobenzaprine 10 mg Tab RxNorm: 184852 1 Tablet(s) PO TID 011 01/08/2011 Inactive cyclobenzaprine 10 mg Tab RxNorm: 488960 1 Tablet(s) PO TID 011 12/20/2010 Inactive terbinafine 250 mg Tab RxNorm: 192175 1 Tablet(s) PO QD 12/12/2010 Inactive triamterene-hydrochlorothiazide 75 mg-50 mg Tab RxNorm: 3108 18 1 Tablet(s) PO QD 12/07/2010 06/04/2011 Inactive Klor-Con 8 8 mEq Tab RxNorm: 905651 1 Tablet(s) PO QD 12/07/201001/08 Inactive Premarin 1.25 mg Tab RxNorm: 895025 2 Tablet(s) PO QD 12/07/201001/08 Inactive clonidine 0.2 mg Tab RxNorm: 265755 1 Tablet(s) PO TID 12/07/2010 Inactive hydrocodone-acetaminophen 7.5 mg-650 mg Tab RxNorm: 365863 1 Ta blet(s) PO Q4H 12/05/2010 01/21/2019 Inactive hydrocodone-acetaminophen 7.5 mg-650 mg Tab RxNorm: 960000 1 Ta blet(s) PO Q4H 10/26/2010 11/14/2010 Inactive hydrocodone-acetaminophen 7.5 mg-650 mg Tab RxNorm: 530698 1 Ta blet(s) PO Q4H 10/13/2010 10/25/2010 Inactive hydrocodone-acetaminophen 7.5 mg-650 mg Tab RxNorm: 950329 1 Ta blet(s) PO Q4H 09/15/2010 09/12/2010 Inactive alprazolam 0.5 mg Tab RxNorm: 755021 1 Tablet(s) PO BID prn 011 09/12/2010 Inactive terbinafine 250 mg Tab RxNorm: 438433 1 Tablet(s) PO QD 09/05/2010 Inactive hydrocodone-acetaminophen 7.5 mg-650 mg Tab RxNorm: 903783 1 Ta blet(s) PO Q4H 08/29/2010 09/17/2010 Inactive alprazolam 0.5 mg Tab RxNorm: 181077 1 Tablet(s) PO BID prn 010 09/27/2010 Inactive alprazolam 0.5 mg Tab RxNorm: 757593 1 Tablet(s) PO BID prn 09/06/2010 Inactive Klor-Con 8 mEq Tab RxNorm: 982838 1 Tablet(s) PO QD 08/08/20102010 Inactive hydrocodone-acetaminophen 7.5 mg-650 mg Tab RxNorm: 934893 1 Ta blet(s) PO Q4H 08/08/2010 08/27/2010 Inactive Ambien 10 mg Tab RxNorm: 077857 1 Tablet(s) PO QHS 08/08/2010 Inactive clonidine 0.2 mg Tab RxNorm: 581357 1 Tablet(s) PO TID 08/08/2010 Inactive Premarin 1.25 mg Tab RxNorm: 121403 2 Tablet(s) PO QD 08/08/201009/12 Inactive Ambien 10 mg Tab RxNorm: 846204 1 Tablet(s) PO QHS 07/18/2010 Inactive alprazolam 0.5 mg Tab RxNorm: 727341 1 Tablet(s) PO BID prn 08/07/2010 Inactive hydrocodone-acetaminophen 7.5 mg-650 mg Tab RxNorm: 215124 1 Ta blet(s) PO Q4H 07/12/2010 07/31/2010 Inactive clonidine 0.2 mg Tab RxNorm: 798476 1 Tablet(s) PO TID 06/20/2010 Inactive terbinafine 250 mg Tab RxNorm: 514283 1 Tablet(s) PO QD 05/24/2010 Inactive Clonidine 0.2 mg Tab RxNorm: 662753 1 Tablet(s) PO TID 05/24/201006/2010 Inactive Ambien 10 mg Tab RxNorm: 709323 1 Tablet(s) PO QHS 05/24/2010 010 Inactive alprazolam 0.5 mg Tab RxNorm: 265005 1 Tablet(s) PO BID 05/24/2010 Inactive Klor-Con 8 mEq Tab RxNorm: 509386 1 Tablet(s) PO QD 05/24/20102009 Inactive alprazolam 0.5 mg Tab RxNorm: 288179 2 Tablet(s) PO QD prn 05/24/20 10 07/17/2010 Inactive triamterene-hydrochlorothiazide 75 mg-50 mg Tab RxNorm: 3108 18 1 Tablet(s) PO QD 05/24/2010 11/19/2010 Inactive Ambien 10 mg Tab RxNorm: 568914 1 Tablet(s) PO QHS 05/23/2010 010 Inactive Alprazolam 0.5 mg Tab RxNorm: 914640 2 Tablet(s) PO QD prn 05/23/20 10 05/23/2010 Inactive Premarin 1.25 mg Tab RxNorm: 489752 2 Tablet(s) PO QD 05/19/201007/12 Inactive Hydrocodone-Acetaminophen 7.5 mg-650 mg Tab RxNorm: 031849 1 Ta blet(s) PO Q4H 05/19/2010 03/20/2011 Inactive Prednisone 20 mg Tab RxNorm: 137898 1 Tablet(s) PO BID 05/17/2010 Inactive Prednisone 20 mg Tab RxNorm: 062994 1 Tablet(s) PO BID 05/06/201001/2010 Inactive Premarin 1.25 mg Tab RxNorm: 883409 Tablet(s) PO 2 M-W-F, and 1 Yn-Sg-Yrd-Sun 05/05/2010 08/02/2010 Inactive Premarin 1.25 mg Tab RxNorm: 883922 Tablet(s) PO 2 M-W-F, and 1 Yn-Ct-Mdj-Sun 05/04/2010 05/04/2010 Inactive Premarin 1.25 mg Tab RxNorm: 703170 Tablet(s) PO 2 M-W-F, and 1 Ib-Av-Jmi-Sun 05/04/2010 05/03/2010 Inactive Prednisone 20 mg Tab RxNorm: 901757 1 Tablet(s) PO BID 04/27/2010 Inactive Alprazolam 0.5 mg Tab RxNorm: 286278 2 Tablet(s) PO QD prn 04/26/20 10 05/22/2010 Inactive Clindamycin 300 mg Cap RxNorm: 756710 2 Capsule(s) PO TID 04/05/2010 04/18/2010 Inactive Terbinafine 250 mg Tab RxNorm: 580761 1 Tablet(s) PO QD 04/04/2010 Inactive Hydrocodone-Acetaminophen 7.5 mg-650 mg Tab RxNorm: 665784 1 Ta blet(s) PO Q4H 03/30/2010 04/18/2010 Inactive Avelox 400 mg Tab RxNorm: 252913 1 Tablet(s) PO QD 03/09/2010 010 Inactive Hydrocodone-Acetaminophen 7.5 mg-650 mg Tab RxNorm: 811593 1 Ta blet(s) PO Q4H 03/08/2010 03/27/2010 Inactive Alprazolam 0.5 mg Tab RxNorm: 569894 2 Tablet(s) PO QD prn 03/08/20 10 04/25/2010 Inactive Klor-Con 8 mEq Tab RxNorm: 124167 1 Tablet(s) PO QD when takes lasi x 03/07/2010 08/03/2010 Inactive Premarin 1.25 mg Tab RxNorm: 831375 1 Tablet(s) PO QD 03/03/201003/11 Inactive Alprazolam 0.5 mg Tab RxNorm: 538867 1 Tablet(s) PO BID PRN 010 No Stop Date Active triamterene-hydrochlorothiazide 75 mg-50 mg Tab RxNorm: 3108 18 1 Tablet(s) PO QD 02/09/2010 02/03/2011 Inactive Hydrocodone-Acetaminophen 10 mg-750 mg Tab RxNorm: 107180 1 Tablet(s) PO Q4H PRN 02/09/2010 03/20/2011 Inactive Clonidine 0.2 mg Tab RxNorm: 155687 1 Tablet(s) PO TID 01/13/201009/2009 Inactive Alprazolam 0.5 mg Tab RxNorm: 231091 1 Tablet(s) PO BID PRN 010 01/12/2010 Inactive Hydrocodone-Acetaminophen 10 mg-750 mg Tab RxNorm: 814181 1 Tablet(s) PO Q4H PRN 01/13/2010 01/12/2010 Inactive ANGELIQ 1 mg-0.5 mg Tab RxNorm: 8695523 1 Tablet(s) PO QD 12/27/2009 01/23/2010 Inactive Lasix 40 mg Tab RxNorm: 858461 1 Tablet(s) PO QAM 12/14/2009 06/11/20 10 Inactive Vitamin B12 1000mcg Tablet RxNorm: 1 Tablet(s) PO QD No Start Date Active cyclobenzaprine 10 mg tablet RxNorm: 616911 1 Tablet(s) PO TID as needed DO NOT USE WITH BACLOFEN No Start Date Active Vitamin D 5,000 unit Tab RxNorm: 1 Tablet(s) PO QD No Start Date Active vitamin E (dl, acetate) 400 unit Cap RxNorm: 961002 1 Capsule(s ) PO QD No Start Date Active baclofen 10 mg tablet RxNorm: 514746 1 Tablet(s) PO TID as needed for muscle spasm No Start Date Active Benadryl 25 mg Cap RxNorm: 0976638 Capsule(s) PO PRN No Start Date Inactive amitriptyline 100 mg tablet RxNorm: 461390 1 Tablet(s) PO QHS No St art Date 11/27/2016 Inactive Zithromax Z-Dustin 250 mg tablet RxNorm: 906112 Tablet(s) PO as di rected No Start Date 07/22/2013 Inactive Klor-Con 8 mEq tablet,extended release RxNorm: 648197 1 Tablet( s) PO BID No Start Date 07/28/2012 Inactive scopolamine 1.5 mg 72 hr Transderm Patch RxNorm: 787454 Application TD Q72H for motion sickness No Start Date 05/25/2013 Inactive Klonopin 1 mg tablet RxNorm: 892173 1-2 Tablet(s) PO QHS as nee ded for sleep No Start Date 06/20/2015 Inactive Klor-Con M20 mEq tablet,extended release RxNorm: 343167 2 Tablet(s) PO BID to use with lasix No Start Date 11/11/2013 Inactive Bystolic 5 mg tablet RxNorm: 843131 1 Tablet(s) PO QD No Start Date 1 Inactive Bystolic 10 mg tablet RxNorm: 781187 1 Tablet(s) PO BID No Start Da te 07/06/2015 Inactive Premarin 1.25 mg Tab RxNorm: 855172 Tablet(s) PO 2 M-W-F, and 1 Vu-Uk-Cei-Sun No Start Date 05/03/2010 Inactive baclofen 20 mg tablet RxNorm: 393019 1 Tablet(s) PO TID as needed for muscle spasm No Start Date 07/22/2015 Inactive hydrocodone-acetaminophen 7.5 mg-650 mg Tab RxNorm: 858396 1 Tablet(s) PO Q4H as needed for pain No Start Date 03/20/2011 Inactive albuterol sulfate 1.25 mg/3 mL Neb Solution RxNorm: 907337 1 Unit Dose INH Q4H 2boxes No Start Date 09/06/2015 Inactive Butrans 20 mcg/hour Transderm Patch RxNorm: 657666 1 TD WEEKLY apply to skin weekly after removing previous. No Start Date 07/22/2013 Inactive Medrol (Dustin) 4 mg tablets in a dose pack RxNorm: 153354 Tablet(s) PO As Directed No Start Date 07/30/2016 Inactive hydrocodone-acetaminophen 10 mg-325 mg Tab RxNorm: 6679573 1-2 Tablet(s) PO TID as needed for pain No Start Date 03/19/2011 Inactive Klonopin 1 mg tablet RxNorm: 274445 1 Tablet(s) PO QHS No Start Date 02/28/2016 Inactive honey topical RxNorm: topical No Start Date 06/16/2018 Inactive Clonidine 0.2 mg Tab RxNorm: 533263 1 Tablet(s) PO TID No Start Date 01/12/2010 Inactive ketorolac 10 mg tablet RxNorm: 492900 1 Tablet(s) PO Q8H No Start D ate 03/18/2012 Inactive as needed for headache Singulair 10 mg Tab RxNorm: 489700 1 Tablet(s) PO QD No Start Date Inactive Premarin 1.25 mg Tab RxNorm: 758348 1 Tablet(s) PO QD No Start Date 1 Inactive Flonase 50 mcg/Actuation Nasal [place] RxNorm: 4409818 1 [place] CECELIA AL BID No Start Date 03/18/2012 Inactive Terbinafine 250 mg Tab RxNorm: 514655 1 Tablet(s) PO QD No Start Da te 04/03/2010 Inactive Fexofenadine 180 mg Tab RxNorm: 9013729 1 Tablet(s) PO QD No Start Date 09/06/2015 Inactive baclofen 20 mg tablet RxNorm: 811875 1 Tablet(s) PO TID as needed N o Start Date 05/25/2014 Inactive Diovan 160 mg Tab RxNorm: 156255 1 Tablet(s) PO QD No Start Date 09/12 Inactive mupirocin 2 % topical ointment RxNorm: 737438 1 Application TOP QID No Start Date 04/25/2016 Inactive ZOFRAN ODT 4 mg Tab, Rapid Dissolve RxNorm: 366924 1 Tablet(s) PO Q4H No Start Date 03/18/2012 Inactive as needed for nausea and vomiting Alprazolam 0.5 mg Tab RxNorm: 557851 1 Tablet(s) PO BID PRN No Star t Date 01/12/2010 Inactive cyclobenzaprine 10 mg tablet RxNorm: 032208 1 Tablet(s) PO TID as needed for muscle spasm No Start Date 10/08/2017 Inactive Albuterol 0.083% Aerosol Solution RxNorm: 1 Appl ication INH Q4H Use one ampule every 4 hrs with nebulizer as needed for shortness of breath. No Start Date 10/09/2010 Inactive lorazepam 1 mg tablet RxNorm: 330861 1 1/2 Tablet(s) PO QHS No Star t Date 02/02/2016 Inactive Melatonin 3 mg Tab RxNorm: 749838 Tablet(s) PO PRN No Start Date 07/11 Inactive Medrol (Dustin) 4 mg Tabs in a Dose Pack RxNorm: 515825 Tablet(s) PO N o Start Date 11/28/2010 Inactive lorazepam 1 mg tablet RxNorm: 022917 1 Tablet(s) PO QHS as need ed for sleep No Start Date 01/30/2016 Inactive hydrocodone-acetaminophen 10 mg-325 mg Tab RxNorm: 5841148 1-2 Tablet(s) PO QID as needed for severe pain No Start Date 03/24/2012 Inactive celecoxib 200 mg capsule RxNorm: 529024 1 Capsule(s) PO BID No Star t Date 06/26/2019 Inactive amlodipine 5 mg-benazepril 20 mg capsule RxNorm: 684481 1 Capsu le(s) PO QD No Start Date 04/10/2017 Inactive Bystolic 20 mg tablet RxNorm: 861846 1/2 Tablet(s) PO QAM No Start Date 01/23/2016 Inactive Bystolic 20 mg tablet RxNorm: 202834 1 Tablet(s) PO QAM No Start Da te 04/25/2016 Inactive Ambien 10 mg Tab RxNorm: 201912 1 Tablet(s) PO QHS No Start Date 05/11 Inactive Klor-Con 8 mEq Tab RxNorm: 657295 1 Tablet(s) PO QD when takes lasix No Start Date 03/06/2010 Inactive aspirin 81 mg tablet RxNorm: 533347 1 Tablet(s) PO QD No Start Date 0 01/29/2018 Inactive hydrocodone-acetaminophen 10 mg-325 mg Tab RxNorm: 7059102 1-2 T ablet(s) PO QID No Start Date 01/10/2012 Inactive Bystolic 10 mg tablet RxNorm: 315507 1 Tablet(s) PO QAM take one daily in the morning. No Start Date 05/28/2013 Inactive nystatin 100,000 unit/mL Oral Susp RxNorm: 326262 5 Milliliter( s) PO QID No Start Date 03/18/2012 Inactive swish and spit scopolamine 1.5 mg 72 hr Transderm Patch RxNorm: 081926 1 Unit Dose TD Q72H for motion sickness No Start Date 12/23/2013 Inactive Hydrocodone-Acetaminophen 10 mg-750 mg Tab RxNorm: 631345 1 Tablet(s) PO Q4H PRN No Start Date 01/12/2010 Inactive Soma 350 mg tablet RxNorm: 316618 1 Tablet(s) PO TID as needed for spasm No Start Date 01/12/2013 Inactive Soma 350 mg Tab RxNorm: 069446 1 Tablet(s) PO TID for spasm No Star t Date 01/31/2012 Inactive Co Q-10 400 mg capsule RxNorm: 940056 1 Capsule(s) PO QD No Start D ate 01/21/2019 Inactive nystatin 100,000 unit/gram topical cream RxNorm: 137881 Applica tion TOP BID No Start Date 03/22/2015 Inactive Exforge 5 mg-160 mg Tab RxNorm: 150633 1 Tablet(s) PO QD No Start D ate 10/09/2010 Inactive Hydrocodone-Acetaminophen 7.5 mg-650 mg Tab RxNorm: 035377 1 Ta blet(s) PO Q4H No Start Date 03/07/2010 Inactive Robaxin-750 750 mg Tab RxNorm: 280232 1-2 Tablet(s) PO TID prn spasm No Start Date 05/21/2011 Inactive amlodipine 5 mg tablet RxNorm: 279357 1 Tablet(s) PO QHS No Start D ate 09/29/2015 Inactive oxycodone-acetaminophen 10 mg-325 mg tablet RxNorm: 0564877 1-2 Tablet(s) PO Q6H No Start Date 06/16/2018 Inactive Triamterene-Hydrochlorothiazide 75 mg-50 mg Tab RxNorm: 3108 18 1 Tablet(s) PO QD No Start Date 02/08/2010 Inactive Alprazolam 0.5 mg Tab RxNorm: 872191 2 Tablet(s) PO QD prn No Start Date 03/07/2010 Inactive Bystolic 20 mg tablet RxNorm: 360434 1 Tablet(s) PO QAM No Start Da te 08/17/2015 Inactive ketorolac 10 mg tablet RxNorm: 537604 1 Tablet(s) PO QID prn he adache No Start Date 07/17/2012 Inactive acyclovir 800 mg Tab RxNorm: 238988 1 Tablet(s) PO BID No Start Date 03/18/2012 Inactive duloxetine 60 mg capsule,delayed release RxNorm: 500630 1 Capsu le(s) PO QD No Start Date 09/29/2015 Inactive Norvasc 5 mg tablet RxNorm: 712773 1 Tablet(s) PO QHS No Start Date 1 10/18/2014 Inactive promethazine 25 mg tablet RxNorm: 346783 1 Tablet(s) PO Q8H use sparingly No Start Date 07/22/2013 Inactive alprazolam 0.5 mg tablet RxNorm: 693707 3 Tablet(s) PO QHS No Start Date 06/06/2015 Inactive Lunesta 3 mg tablet RxNorm: 269420 1 Tablet(s) PO QHS No Start Date 0 09/20/2017 Inactive hydrocodone-acetaminophen 10 mg-325 mg Tab RxNorm: 6999110 1-2 Tablet(s) PO TID as needed for pain No Start Date 12/10/2011 Inactive Coricidin HBP Cough & Cold 4 mg-30 mg Tab RxNorm: 3641706 Tablet (s) PO PRN No Start Date 10/09/2010 Inactive Bactroban 2 % Ointment RxNorm: 235984 Application TOP QID to so res No Start Date 02/22/2012 Inactive Flonase 50 mcg/actuation Nasal [place] RxNorm: 582937 2 [place] QHS No Start Date 03/03/2014 Inactive Medication Administered No Medication Administered data Immunizations Vaccine Codes Date Status Tetanus, Diptheria, Pertussis CVX: 115 02/27/2014 Results Observation Observation Code Item Item Code Result Date S [facility] Location COMPLETE BLOOD COUNT [id number] WBC 10.7 10e9/L 018 Unknown COMPLETE BLOOD COUNT [id number] RBC 4.59 10e12/L 2017 Unknown COMPLETE BLOOD COUNT [id number] HEMOGLOBIN 14.8 g/dL 12/11/19 18 Unknown COMPLETE BLOOD COUNT [id number] HEMATOCRIT 44.9 % 12/11/19 18 Unknown COMPLETE BLOOD COUNT [id number] MCV 97.8 fL 8 Unknown COMPLETE BLOOD COUNT [id number] MCH 32.2 pg 8 Unknown COMPLETE BLOOD COUNT 3167979 MCHC 33.0 g/dL 8 Unknown COMPLETE BLOOD COUNT [id number] PLATELET COUNT 261 10e9/L 10/2017 Unknown COMPLETE BLOOD COUNT [id number] Mean Plt Volume 9.5 fL 10/2017 Unknown COMPLETE BLOOD COUNT [id number] Neut Auto 59.9 % 8 Unknown COMPLETE BLOOD COUNT 1657101 Lymph Auto 27.4 % 12/11/19 18 Unknown COMPLETE BLOOD COUNT [id number] Rabun Auto 8.2 % 8 Unknown COMPLETE BLOOD COUNT 8306939 RDW 13.3 % 8 Unknown COMPLETE BLOOD COUNT 2357509 Eos Auto 4.1 % 8 Unknown COMPLETE BLOOD COUNT [id number] Baso Auto 0.4 % 8 Unknown COMPLETE BLOOD COUNT [id number] Neutrophil Abs 6.41 10e9/L Unknown COMPLETE BLOOD COUNT [id number] Lymphocyte Abs 2.93 10e9/L Unknown COMPLETE BLOOD COUNT [id number] Monocyte Abs 0.88 10e9/L 10/2017 Unknown COMPLETE BLOOD COUNT [id number] Eosinophil Abs 0.44 10e9/L Unknown COMPLETE BLOOD COUNT 1879504 RDW-SD 46.2 fL 8 Unknown COMPLETE BLOOD COUNT [id number] Basophil Abs 0.04 10e9/L 10/2017 Unknown THYROID STIMULATING HORMONE 36898 TSH 4.015 uIU/mL 12/10/2017 Unknown COMPREHENSIVE METABOLIC 65814 AST 25 U/L 2017 Unknown COMPREHENSIVE METABOLIC 76453 ALT 17 U/L 2017 Unknown COMPREHENSIVE METABOLIC 78421 BUN 19 mg/dL 2017 Unknown COMPREHENSIVE METABOLIC 34216 ALBUMIN 4.0 g/dL 2017 Unknown COMPREHENSIVE METABOLIC 74872 CHLORIDE 91 mmol/L 2017 Unknown COMPREHENSIVE METABOLIC 54955 Bili Total 0.5 mg/dL 12/10 Unknown COMPREHENSIVE METABOLIC 41362 ALK PHOS 75 U/L 2017 Unknown COMPREHENSIVE METABOLIC 66580 SODIUM 136 mmol/L 12/10 Unknown COMPREHENSIVE METABOLIC 37147 CREATININE 1.05 mg/dL 10/2017 Unknown COMPREHENSIVE METABOLIC 17240 CALCIUM 8.9 mg/dL 2017 Unknown COMPREHENSIVE METABOLIC 49054 POTASSIUM 3.4 mmol/L 12/10 Unknown COMPREHENSIVE METABOLIC 76637 Total Protein 6.5 g/dL Unknown COMPREHENSIVE METABOLIC 44754 Glucose 138 mg/dL 2017 Unknown COMPREHENSIVE METABOLIC 67053 Bicarbonate 35 mmol/L 10/2017 Unknown COMPREHENSIVE METABOLIC 65502 AGAP 10 mmol/L 2017 Unknown MEAN GLUC 6711574 Calc Mean Gluc 171 mg/dL 12/10/2017 Unkn own LIP[facility] GROUP 44705 Cholesterol 204 mg/dL 12/10/2017 Unkno wn LIPID GROUP 46958 Triglyceride 411 mg/dL 12/10/2017 Unkn own LIPID GROUP 06664 HDL CHOLESTEROL 50 mg/dL 12/10/2017 U nknown LIPID GROUP 75343 Chol/HDL Ratio 4.08 ratio 12/10/2017 U nknown LIPID GROUP 51842 NON-HDL Chol 154 mg/dL 12/10/2017 Unkn own LIPID GROUP 55481 LDL Cholesterol N/A Trig >400 018 Unknown GLYCOSYLATED HEMOGLOBIN TEST 94950 Hgb A1c 64758-2 7.6 % 0 12/10/2017 Unknown FREE T4 98811 T4 Free 1.40 ng/dL 12/10/2017 Unknown GFR CALC 9770699 GFR Non Afr Amr 55 mL/min 12/10/2017 Unk nown GFR CALC 3375319 GFR Afr Amr >60 mL/min 12/10/2017 Unknow n GFR CALC 4337485 GFR Non Afr Amr 48 mL/min 06/28/2017 Unk nown GFR CALC 3300233 GFR Afr Amr 59 mL/min 06/28/2017 Unknown COMPREHENSIVE METABOLIC 98102 AST 32 U/L 2016 Unknown COMPREHENSIVE METABOLIC 65337 ALT 22 U/L 2016 Unknown COMPREHENSIVE METABOLIC 10025 BUN 23 mg/dL 2016 Unknown COMPREHENSIVE METABOLIC 47530 ALBUMIN 4.7 g/dL 2016 Unknown COMPREHENSIVE METABOLIC 65916 CHLORIDE 89 mmol/L 2016 Unknown COMPREHENSIVE METABOLIC 78344 Bili Total 0.5 mg/dL 06/28 Unknown COMPREHENSIVE METABOLIC 90372 ALK PHOS 90 U/L 2016 Unknown COMPREHENSIVE METABOLIC 07653 SODIUM 135 mmol/L 06/28 Unknown COMPREHENSIVE METABOLIC 36865 CREATININE 1.18 mg/dL 06/10 Unknown COMPREHENSIVE METABOLIC 55252 CALCIUM 9.7 mg/dL 2016 Unknown COMPREHENSIVE METABOLIC 48698 POTASSIUM 3.5 mmol/L 06/28 Unknown COMPREHENSIVE METABOLIC 40643 Total Protein 7.7 g/dL Unknown COMPREHENSIVE METABOLIC 42825 Glucose 129 mg/dL 2016 Unknown COMPREHENSIVE METABOLIC 07592 Bicarbonate 34 mmol/L 06/10 Unknown COMPREHENSIVE METABOLIC 76250 AGAP 12 mmol/L 2016 Unknown LIPID GROUP 25964 HDL TEST 64 MG/DL 08/27/2014 Unknown LIPID GROUP 96569 TRIG 222 MG/DL 08/27/2014 Unknown LIPID GROUP 44272 TEST LDL 209 MG/DL 08/27/2014 Unknown LIPID GROUP 60256 CHOL 317 MG/DL 08/27/2014 Unknown LIPID GROUP 39108 RCHOL/HDL 4.95 RATIO 08/27/2014 Unknow n LIPID GROUP 28575 NON-HDL CH 253 MG/DL 08/27/2014 Unknow n GFR CALC 9572330 GFR AA >60 ML/MIN 08/27/2014 Unknown GFR CALC 1293524 GFR NON-AA >60 ML/MIN 08/27/2014 Unknown COMPLETE BLOOD COUNT [id number] WBC 7.0 10e9/L 08/27/20 14 Unknown COMPLETE BLOOD COUNT [id number] RBC 4.98 10e12/L 2013 Unknown COMPLETE BLOOD COUNT 7945024 HGB 15.6 g/dL 4 Unknown COMPLETE BLOOD COUNT 3711893 HCT DET 46.5 % 4 Unknown COMPLETE BLOOD COUNT 5825323 MCV 93.4 fL 4 Unknown COMPLETE BLOOD COUNT 3791571 MCH 31.3 pg 4 Unknown COMPLETE BLOOD COUNT 3580631 MCHC 33.5 g/dL 4 Unknown COMPLETE BLOOD COUNT 2557579 PLT 309 10e9/L 08/27/20 14 Unknown COMPLETE BLOOD COUNT 6394564 MPV 9.6 fL 4 Unknown COMPLETE BLOOD COUNT 4760306 CADEN % 57.2 % 4 Unknown COMPLETE BLOOD COUNT 2559648 LY % 33.2 % 4 Unknown COMPLETE BLOOD COUNT 9618443 MON % 7.3 % 4 Unknown COMPLETE BLOOD COUNT 3117375 EOS % 2.0 % 4 Unknown COMPLETE BLOOD COUNT 5829377 BASO % 0.3 % 4 Unknown COMPLETE BLOOD COUNT 5090937 RDW 13.7 % 4 Unknown COMPLETE BLOOD COUNT 0110474 ABS CADEN 4.00 10e9/L 014 Unknown COMPLETE BLOOD COUNT 6987863 ABS LYMPH 2.32 10e9/L 014 Unknown COMPLETE BLOOD COUNT 4246830 ABS MONO 0.51 10e9/L 014 Unknown COMPLETE BLOOD COUNT [id number] ABS EOS 0.14 10e9/L 014 Unknown COMPLETE BLOOD COUNT 0455075 ABS BASO 0.02 10e9/L 014 Unknown COMPLETE BLOOD COUNT 0593063 RDW-SD 45.1 fL 4 Unknown COMPREHENSIVE METABOLIC 16243 AST 13 U/L 2013 Unknown COMPREHENSIVE METABOLIC 29137 ALT 11 IU/L 2013 Unknown COMPREHENSIVE METABOLIC 88744 BUN 23 MG/DL 2013 Unknown COMPREHENSIVE METABOLIC 08227 ALBUMIN 4.4 GM/DL 2013 Unknown COMPREHENSIVE METABOLIC 03959 CHLORIDE 99 MMOL/L 2013 Unknown COMPREHENSIVE METABOLIC 49922 BILI TOT 0.5 MG/DL 2013 Unknown COMPREHENSIVE METABOLIC 05401 ALK PHOS 56 U/L 2013 Unknown COMPREHENSIVE METABOLIC 48011 SODIUM 138 MMOL/L 08/27 Unknown COMPREHENSIVE METABOLIC 86688 CREATININE 0.95 MG/DL 08/10 Unknown COMPREHENSIVE METABOLIC 56617 CALCIUM 9.8 MG/DL 2013 Unknown COMPREHENSIVE METABOLIC 58497 POTASSIUM 3.5 MMOL/L 08/27 Unknown COMPREHENSIVE METABOLIC 30452 PROT TOT 6.8 GM/DL 2013 Unknown COMPREHENSIVE METABOLIC 75010 Glucose 90 MG/DL 2013 Unknown COMPREHENSIVE METABOLIC 19942 BICARB 34 MMOL/L 2013 Unknown COMPREHENSIVE METABOLIC 43191 ANION GAP 5 MEQ/L 2013 Unknown LIPASE 94723 LIPASE 11 IU/L 07/21/2014 Unknown AMYLASE 97347 AMYLASE 39 IU/L 07/21/2014 Unknown HEMOGLOBIN A1C (GLYCOSYLATED) 3829815 A1C [facility] 35306-4 6.2 % 03/05/2013 Unknown THYROID STIMULATING HORMONE 36574 TSH 6.986 uIU/ML 03/05/2013 Unknown COMPLETE BLOOD COUNT [id number] WBC 12.7 10e9/L 013 Unknown COMPLETE BLOOD COUNT 5116213 RBC 4.53 10e12/L 2012 Unknown COMPLETE BLOOD COUNT 0849768 HGB 14.7 g/dL 3 Unknown COMPLETE BLOOD COUNT 8473021 HCT DET 43.1 % 3 Unknown COMPLETE BLOOD COUNT 7081884 MCV 95.1 fL 3 Unknown COMPLETE BLOOD COUNT 7685688 MCH 32.5 pg 3 Unknown COMPLETE BLOOD COUNT 0837176 MCHC 34.1 g/dL 3 Unknown COMPLETE BLOOD COUNT 1100832 PLT 346 10e9/L 03/05/20 13 Unknown COMPLETE BLOOD COUNT 5135616 MPV 9.5 fL 3 Unknown COMPLETE BLOOD COUNT 2497437 CADEN % 67.6 % 3 Unknown COMPLETE BLOOD COUNT 5820613 LY % 22.1 % 3 Unknown COMPLETE BLOOD COUNT 6340898 MON % 6.6 % 3 Unknown COMPLETE BLOOD COUNT 3564850 EOS % 3.3 % 3 Unknown COMPLETE BLOOD COUNT 6113473 BASO % 0.4 % 3 Unknown COMPLETE BLOOD COUNT 5948763 RDW 14.0 % 3 Unknown COMPLETE BLOOD COUNT 4013948 ABS CADEN 8.59 10e9/L 013 Unknown COMPLETE BLOOD COUNT 7118070 ABS LYMPH 2.81 10e9/L 013 Unknown COMPLETE BLOOD COUNT 8110162 ABS MONO 0.84 10e9/L 013 Unknown COMPLETE BLOOD COUNT 4434169 ABS EOS 0.42 10e9/L 013 Unknown COMPLETE BLOOD COUNT 6226757 ABS BASO 0.05 10e9/L 013 Unknown COMPLETE BLOOD COUNT 9308674 RDW-SD 46.0 fL 3 Unknown FREE T4 08990 FREE T4 1.14 NG/DL 03/05/2013 Unknown COMPREHENSIVE METABOLIC 39940 AST 17 U/L 2012 Unknown COMPREHENSIVE METABOLIC 71912 ALT 12 IU/L 2012 Unknown COMPREHENSIVE METABOLIC 59483 BUN 24 MG/DL 2012 Unknown COMPREHENSIVE METABOLIC 76306 ALBUMIN 4.2 GM/DL 2012 Unknown COMPREHENSIVE METABOLIC 05294 CHLORIDE 93 MMOL/L 2012 Unknown COMPREHENSIVE METABOLIC 62330 BILI TOT 0.5 MG/DL 2012 Unknown COMPREHENSIVE METABOLIC 40368 ALK PHOS 75 U/L 2012 Unknown COMPREHENSIVE METABOLIC 47436 SODIUM 141 MMOL/L 03/05 Unknown COMPREHENSIVE METABOLIC 86208 CREATININE 1.36 MG/DL 02/09 Unknown COMPREHENSIVE METABOLIC 73004 CALCIUM 9.2 MG/DL 2012 Unknown COMPREHENSIVE METABOLIC 48070 POTASSIUM 3.1 MMOL/L 03/05 Unknown COMPREHENSIVE METABOLIC 38876 PROT TOT 6.9 GM/DL 2012 Unknown COMPREHENSIVE METABOLIC 62449 Glucose 123 MG/DL 2012 Unknown COMPREHENSIVE METABOLIC 00199 BICARB 36 MMOL/L 2012 Unknown COMPREHENSIVE METABOLIC 55848 ANION GAP 12 MEQ/L 2012 Unknown GFR CALC 5451601 GFR AA 51.0L ML/MIN 03/05/2013 Unknow n GFR CALC 1588806 GFR NON-AA 42.0L ML/MIN 03/05/2013 Unkno wn COMPREHENSIVE METABOLIC 48939 AST 14 U/L 2012 Unknown COMPREHENSIVE METABOLIC 48766 ALT 11 IU/L 2012 Unknown COMPREHENSIVE METABOLIC 53068 BUN 16 MG/DL 2012 Unknown COMPREHENSIVE METABOLIC 65535 ALBUMIN 4.2 GM/DL 2012 Unknown COMPREHENSIVE METABOLIC 75377 CHLORIDE 98 MMOL/L 2012 Unknown COMPREHENSIVE METABOLIC 97546 BILI TOT 0.4 MG/DL 2012 Unknown COMPREHENSIVE METABOLIC 04042 ALK PHOS 77 U/L 2012 Unknown COMPREHENSIVE METABOLIC 25650 SODIUM 139 MMOL/L 09/25 Unknown COMPREHENSIVE METABOLIC 23184 CREATININE 0.86 MG/DL 09/10 Unknown COMPREHENSIVE METABOLIC 52556 CALCIUM 9.5 MG/DL 2012 Unknown COMPREHENSIVE METABOLIC 78431 POTASSIUM 3.8 MMOL/L 09/25 Unknown COMPREHENSIVE METABOLIC 62580 PROT TOT 6.8 GM/DL 2012 Unknown COMPREHENSIVE METABOLIC 02188 Glucose 91 MG/DL 2012 Unknown COMPREHENSIVE METABOLIC 17185 BICARB 32 MMOL/L 2012 Unknown COMPREHENSIVE METABOLIC 35874 ANION GAP 9 MEQ/L 2012 Unknown FREE T4 20522 FREE T4 0.98 NG/DL 09/25/2012 Unknown THYROID STIMULATING HORMONE 10316 TSH 1.736 uIU/ML 09/25/2012 Unknown C-REACTIVE PROTEIN (CRP) QUANT 14187 CRP 2.3 MG/DL 09/25/2012 Unknown COMPLETE BLOOD COUNT [id number] WBC 11.9 10e9/L 013 Unknown COMPLETE BLOOD COUNT 3338256 RBC 4.87 10e12/L 2012 Unknown COMPLETE BLOOD COUNT 4697868 HGB 15.1 g/dL 3 Unknown COMPLETE BLOOD COUNT 0805518 HCT DET 44.8 % 3 Unknown COMPLETE BLOOD COUNT 9768277 MCV 92.0 fL 3 Unknown COMPLETE BLOOD COUNT 8268375 MCH 31.0 pg 3 Unknown COMPLETE BLOOD COUNT 7906676 MCHC 33.7 g/dL 3 Unknown COMPLETE BLOOD COUNT 3864879 PLT 343 10e9/L 09/25/19 13 Unknown COMPLETE BLOOD COUNT 8572601 MPV 9.0 fL 3 Unknown COMPLETE BLOOD COUNT 7614596 CADEN % 68.2 % 3 Unknown COMPLETE BLOOD COUNT 2956542 LY % 22.4 % 3 Unknown COMPLETE BLOOD COUNT 0494343 MON % 6.4 % 3 Unknown COMPLETE BLOOD COUNT 4256652 EOS % 2.7 % 3 Unknown COMPLETE BLOOD COUNT 2355095 BASO % 0.3 % 3 Unknown COMPLETE BLOOD COUNT 6728783 RDW 13.8 % 3 Unknown COMPLETE BLOOD COUNT 7508077 ABS CADEN 8.12 10e9/L 013 Unknown COMPLETE BLOOD COUNT 1560398 ABS LYMPH 2.67 10e9/L 013 Unknown COMPLETE BLOOD COUNT [id number] ABS MONO 0.76 10e9/L 013 Unknown COMPLETE BLOOD COUNT 1776498 ABS EOS 0.32 10e9/L 013 Unknown COMPLETE BLOOD COUNT 6979047 ABS BASO 0.04 10e9/L 013 Unknown COMPLETE BLOOD COUNT 9791607 RDW-SD 45.6 fL 3 Unknown GFR CALC 0694477 GFR AA >60 ML/MIN 09/25/2012 Unknown GFR CALC 8016647 GFR NON-AA >60 ML/MIN 09/25/2012 Unknown ERYTHROCYTE SEDIMENTATION RATE 74223 ESR 19 MM/HR 05/06/2012 Unknown VITAMIN B 12 FOLIC ACID 14573|30637 VIT B 12 922 PG/ML 04/11 Unknown VITAMIN B 12 FOLIC ACID 89218|73559 FOLIC ACID 13.6 NG/ML Unknown URIC ACID 55975 URIC ACID 7.8 MG/DL 05/06/2012 Unknown COMPLETE BLOOD COUNT 25113 WBC 11.9 10e9/L 012 Unknown COMPLETE BLOOD COUNT 35920 RBC 5.30 10e12/L 2011 Unknown COMPLETE BLOOD COUNT 16625 HGB 16.6 g/dL 2 Unknown COMPLETE BLOOD COUNT 02740 HCT DET 47.2 % 2 Unknown COMPLETE BLOOD COUNT 08826 MCV 89.1 fL 2 Unknown COMPLETE BLOOD COUNT 55771 MCH 31.3 pg 2 Unknown COMPLETE BLOOD COUNT 40611 MCHC 35.2 g/dL 2 Unknown COMPLETE BLOOD COUNT 09442 PLT 362 10e9/L 05/06/20 12 Unknown COMPLETE BLOOD COUNT 18383 MPV 9.4 fL 2 Unknown COMPLETE BLOOD COUNT 88130 CADEN % 68.2 % 2 Unknown COMPLETE BLOOD COUNT 02411 LY % 22.0 % 2 Unknown COMPLETE BLOOD COUNT 93902 MON % 6.9 % 2 Unknown COMPLETE BLOOD COUNT 33546 EOS % 2.6 % 2 Unknown COMPLETE BLOOD COUNT 46996 BASO % 0.3 % 2 Unknown COMPLETE BLOOD COUNT 42766 RDW 12.8 % 2 Unknown COMPLETE BLOOD COUNT 55484 ABS CADEN 8.12 10e9/L 012 Unknown COMPLETE BLOOD COUNT 11292 ABS LYMPH 2.62 10e9/L 012 Unknown COMPLETE BLOOD COUNT 21954 ABS MONO 0.82 10e9/L 012 Unknown COMPLETE BLOOD COUNT 41431 ABS EOS 0.31 10e9/L 012 Unknown COMPLETE BLOOD COUNT 37927 ABS BASO 0.04 10e9/L 012 Unknown COMPLETE BLOOD COUNT 37597 RDW-SD 41.5 fL 2 Unknown GFR CALC 2042503 GFR AA >60 ML/MIN 05/06/2012 Unknown GFR CALC 9303846 GFR NON-AA 58.0L ML/MIN 05/06/2012 Unkno wn FREE T4 93762 FREE T4 1.15 NG/DL 05/06/2012 Unknown THYROID STIMULATING HORMONE 36559 TSH 1.568 uIU/ML 05/06/2012 Unknown COMPREHENSIVE METABOLIC 22736 AST 20 U/L 2011 Unknown COMPREHENSIVE METABOLIC 04997 ALT 12 IU/L 2011 Unknown COMPREHENSIVE METABOLIC 12395 BUN 20 MG/DL 2011 Unknown COMPREHENSIVE METABOLIC 24092 ALBUMIN 4.5 GM/DL 2011 Unknown COMPREHENSIVE METABOLIC 69159 CHLORIDE 91 MMOL/L 2011 Unknown COMPREHENSIVE METABOLIC 71272 BILI TOT 0.4 MG/DL 2011 Unknown COMPREHENSIVE METABOLIC 60668 ALK PHOS 73 U/L 2011 Unknown COMPREHENSIVE METABOLIC 59464 SODIUM 139 MMOL/L 05/06 Unknown COMPREHENSIVE METABOLIC 30543 CREATININE 1.02 MG/DL 04/11 Unknown COMPREHENSIVE METABOLIC 57636 CALCIUM 9.7 MG/DL 2011 Unknown COMPREHENSIVE METABOLIC 71151 POTASSIUM 3.1 MMOL/L 05/06 Unknown COMPREHENSIVE METABOLIC 31299 PROT TOT 7.3 GM/DL 2011 Unknown COMPREHENSIVE METABOLIC 33887 Glucose 118 MG/DL 2011 Unknown COMPREHENSIVE METABOLIC 82828 BICARB 33 MMOL/L 2011 Unknown COMPREHENSIVE METABOLIC 73714 ANION GAP 15 MEQ/L 2011 Unknown Procedures Procedure Codes Date URINALYSIS NONAUTO W/O SCOPE CPT-4: 25275 09/30/2018 MICROALBUMIN QUANTITATIVE CPT-4: 62631 09/30/2018 CEFTRIAXONE SODIUM INJECTION CPT-4: J0696 06/19/2018 THER/PROPH/DIAG INJ SC/IM CPT-4: 31275 06/19/2018 CEFTRIAXONE SODIUM INJECTION CPT-4: J0696 06/17/2018 THER/PROPH/DIAG INJ SC/IM CPT-4: 77691 06/17/2018 THER/PROPH/DIAG INJ SC/IM CPT-4: 38770 05/16/2018 KETOROLAC TROMETHAMINE INJ CPT-4: J1885 05/16/2018 ONDANSETRON HCL INJECTION CPT-4: J2405 05/16/2018 THER/PROPH/DIAG INJ SC/IM CPT-4: 50963 05/16/2018 ROUTINE VENIPUNCTURE CPT-4: 46947 03/20/2018 COMPREHEN METABOLIC PANEL CPT-4: 48280 03/20/2018 DEXAMETHASONE SODIUM PHOS CPT-4: J1100 02/11/2018 THER/PROPH/DIAG INJ SC/IM CPT-4: 70175 02/11/2018 TRIAMCINOLONE ACET INJ NOS CPT-4: J3301 02/11/2018 CEFTRIAXONE SODIUM INJECTION CPT-4: J0696 02/01/2018 THER/PROPH/DIAG INJ SC/IM CPT-4: 03290 02/01/2018 CEFTRIAXONE SODIUM INJECTION CPT-4: J0696 01/30/2018 THER/PROPH/DIAG INJ SC/IM CPT-4: 86295 01/30/2018 ROUTINE VENIPUNCTURE CPT-4: 40501 12/10/2017 ASSAY OF FREE THYROXINE CPT-4: 20794 12/10/2017 ASSAY THYROID STIM HORMONE CPT-4: 45998 12/10/2017 COMPREHEN METABOLIC PANEL CPT-4: 37541 12/10/2017 COMPLETE CBC W/AUTO DIFF WBC CPT-4: 83215 12/10/2017 LIPID PANEL CPT-4: 67436 12/10/2017 A1C HPLC CPT-4: 28113 12/10/2017 CEFTRIAXONE SODIUM INJECTION CPT-4: J0696 12/10/2017 THER/PROPH/DIAG INJ SC/IM CPT-4: 15811 12/10/2017 CEFTRIAXONE SODIUM INJECTION CPT-4: J0696 12/07/2017 THER/PROPH/DIAG INJ SC/IM CPT-4: 54971 12/07/2017 DEXAMETHASONE SODIUM PHOS CPT-4: J1100 12/07/2017 THER/PROPH/DIAG INJ SC/IM CPT-4: 09262 12/07/2017 CEFTRIAXONE SODIUM INJECTION CPT-4: J0696 10/08/2017 THER/PROPH/DIAG INJ SC/IM CPT-4: 82269 10/08/2017 CEFTRIAXONE SODIUM INJECTION CPT-4: J0696 09/21/2017 THER/PROPH/DIAG INJ SC/IM CPT-4: 94038 09/21/2017 CEFTRIAXONE SODIUM INJECTION CPT-4: J0696 09/20/2017 THER/PROPH/DIAG INJ SC/IM CPT-4: 03628 09/20/2017 REMOVAL OF NAIL PLATE CPT-4: 95711 08/29/2017 THER/PROPH/DIAG INJ SC/IM CPT-4: 05363 08/29/2017 TRIAMCINOLONE ACET INJ NOS CPT-4: J3301 08/29/2017 CEFTRIAXONE SODIUM INJECTION CPT-4: J0696 08/29/2017 THER/PROPH/DIAG INJ SC/IM CPT-4: 77901 08/29/2017 DESTRUCT PREMALG LESION (Cryosurgery) CPT-4: 67176 ROUTINE VENIPUNCTURE CPT-4: 95286 06/27/2017 ASSAY OF FREE THYROXINE CPT-4: 05086 06/27/2017 ASSAY THYROID STIM HORMONE CPT-4: 40612 06/27/2017 COMPREHEN METABOLIC PANEL CPT-4: 45436 06/27/2017 COMPLETE CBC W/AUTO DIFF WBC CPT-4: 42545 06/27/2017 EXC TR-EXT B9+REECE 0.5 CM< CPT-4: 56034 01/24/2017 THER/PROPH/DIAG INJ SC/IM CPT-4: 60987 08/02/2016 DEXAMETHASONE SODIUM PHOS CPT-4: J1100 08/02/2016 DESTRUCT PREMALG LESION (Cryosurgery) CPT-4: 92060 EXC TR-EXT B9+REECE 0.5 CM< CPT-4: 02188 08/01/2016 AEROBIC WOUND CULTURE & STN CPT-4: 66506 07/06/2016 CEFTRIAXONE SODIUM INJECTION CPT-4: J0696 05/25/2016 THER/PROPH/DIAG INJ SC/IM CPT-4: 52523 05/25/2016 THER/PROPH/DIAG INJ SC/IM CPT-4: 04360 04/26/2016 DEXAMETHASONE SODIUM PHOS CPT-4: J1100 04/26/2016 CEFTRIAXONE SODIUM INJECTION CPT-4: J0696 04/26/2016 THER/PROPH/DIAG INJ SC/IM CPT-4: 49749 04/26/2016 THER/PROPH/DIAG INJ SC/IM CPT-4: 79339 02/09/2016 TRIAMCINOLONE ACET INJ NOS CPT-4: J3301 02/09/2016 URINALYSIS NONAUTO W/O SCOPE CPT-4: 34866 01/24/2016 URINE CULTURE/ COLONY COUNT CPT-4: 16625 01/24/2016 THER/PROPH/DIAG INJ SC/IM CPT-4: 48896 12/08/2015 TRIAMCINOLONE ACET INJ NOS CPT-4: J3301 12/08/2015 THER/PROPH/DIAG INJ SC/IM CPT-4: 41520 10/07/2015 TRIAMCINOLONE ACET INJ NOS CPT-4: J3301 10/07/2015 DESTRUCT PREMALG LESION (Cryosurgery) CPT-4: 41320 THER/PROPH/DIAG INJ SC/IM CPT-4: 98121 03/16/2015 METHYLPREDNISOLONE 40 MG INJ CPT-4: J1030 03/16/2015 DESTRUCT PREMALG LESION (Cryosurgery) CPT-4: 88770 THER/PROPH/DIAG INJ SC/IM CPT-4: 94700 09/11/2014 METHYLPREDNISOLONE 40 MG INJ CPT-4: J1030 09/11/2014 TRIAMCINOLONE ACET INJ NOS CPT-4: J3301 09/11/2014 CEFTRIAXONE SODIUM INJECTION CPT-4: J0696 09/11/2014 THER/PROPH/DIAG INJ SC/IM CPT-4: 68538 09/11/2014 ROUTINE VENIPUNCTURE CPT-4: 98950 08/27/2014 COMPREHEN METABOLIC PANEL CPT-4: 49220 08/27/2014 COMPLETE CBC W/AUTO DIFF WBC CPT-4: 35868 08/27/2014 LIPID PANEL CPT-4: 90560 08/27/2014 ROUTINE VENIPUNCTURE CPT-4: 67681 07/21/2014 ASSAY OF AMYLASE CPT-4: 72964 07/21/2014 ASSAY OF LIPASE CPT-4: 16054 07/21/2014 THER/PROPH/DIAG INJ SC/IM CPT-4: 97099 07/15/2014 TRIAMCINOLONE ACET INJ NOS CPT-4: J3301 07/15/2014 ROUTINE VENIPUNCTURE CPT-4: 37600 05/14/2014 ASSAY OF FREE THYROXINE CPT-4: 29363 05/14/2014 ASSAY THYROID STIM HORMONE CPT-4: 19844 05/14/2014 COMPREHEN METABOLIC PANEL CPT-4: 58797 05/14/2014 COMPLETE CBC W/AUTO DIFF WBC CPT-4: 86419 05/14/2014 LIPID PANEL CPT-4: 70641 05/14/2014 CEFTRIAXONE SODIUM INJECTION CPT-4: J0696 04/21/2014 THER/PROPH/DIAG INJ SC/IM CPT-4: 80363 04/21/2014 THER/PROPH/DIAG INJ SC/IM CPT-4: 16562 04/21/2014 TRIAMCINOLONE ACET INJ NOS CPT-4: J3301 04/21/2014 THER/PROPH/DIAG INJ SC/IM CPT-4: 48306 03/04/2014 METHYLPREDNISOLONE 40 MG INJ CPT-4: J1030 03/04/2014 TRIAMCINOLONE ACET INJ NOS CPT-4: J3301 03/04/2014 CEFTRIAXONE SODIUM INJECTION CPT-4: J0696 03/04/2014 THER/PROPH/DIAG INJ SC/IM CPT-4: 44617 03/04/2014 TDAP VACCINE 7 YRS/> IM CPT-4: 03072 02/27/2014 IMMUNIZATION ADMIN CPT-4: 62595 02/27/2014 DESTRUCT PREMALG LESION (Cryosurgery) CPT-4: 26310 DESTRUCT PREMALG LES 2-14 CPT-4: 50952 01/13/2014 THER/PROPH/DIAG INJ SC/IM CPT-4: 68306 10/21/2013 METHYLPREDNISOLONE 40 MG INJ CPT-4: J1030 10/21/2013 TRIAMCINOLONE ACET INJ NOS CPT-4: J3301 10/21/2013 CEFTRIAXONE SODIUM INJECTION CPT-4: J0696 08/27/2013 THER/PROPH/DIAG INJ SC/IM CPT-4: 23091 08/27/2013 THER/PROPH/DIAG INJ SC/IM CPT-4: 88198 08/27/2013 METHYLPREDNISOLONE 40 MG INJ CPT-4: J1030 08/27/2013 TRIAMCINOLONE ACET INJ NOS CPT-4: J3301 08/27/2013 THER/PROPH/DIAG INJ SC/IM CPT-4: 36693 06/23/2013 METHYLPREDNISOLONE 40 MG INJ CPT-4: J1030 06/23/2013 TRIAMCINOLONE ACET INJ NOS CPT-4: J3301 06/23/2013 THER/PROPH/DIAG INJ SC/IM CPT-4: 75562 05/26/2013 METHYLPREDNISOLONE 40 MG INJ CPT-4: J1030 05/26/2013 TRIAMCINOLONE ACET INJ NOS CPT-4: J3301 05/26/2013 ROUTINE VENIPUNCTURE CPT-4: 63458 03/05/2013 ASSAY OF FREE THYROXINE CPT-4: 67046 03/05/2013 ASSAY THYROID STIM HORMONE CPT-4: 05201 03/05/2013 COMPREHEN METABOLIC PANEL CPT-4: 55839 03/05/2013 COMPLETE CBC W/AUTO DIFF WBC CPT-4: 41884 03/05/2013 A1C GLYCOSYLATED HEMOGLOBIN TEST CPT-4: 77626 013 DRAIN/INJECT JOINT/BURSA CPT-4: 42824 12/04/2012 METHYLPREDNISOLONE 40 MG INJ CPT-4: J1030 12/04/2012 TRIAMCINOLONE ACET INJ NOS CPT-4: J3301 12/04/2012 CEFTRIAXONE SODIUM INJECTION CPT-4: J0696 11/21/2012 THER/PROPH/DIAG INJ SC/IM CPT-4: 42974 11/21/2012 THER/PROPH/DIAG INJ SC/IM CPT-4: 11709 10/14/2012 METHYLPREDNISOLONE 40 MG INJ CPT-4: J1030 10/14/2012 TRIAMCINOLONE ACET INJ NOS CPT-4: J3301 10/14/2012 URINALYSIS NONAUTO W/O SCOPE CPT-4: 01973 09/27/2012 ROUTINE VENIPUNCTURE CPT-4: 38206 09/25/2012 ASSAY OF FREE THYROXINE CPT-4: 50152 09/25/2012 ASSAY THYROID STIM HORMONE CPT-4: 33718 09/25/2012 COMPREHEN METABOLIC PANEL CPT-4: 42809 09/25/2012 COMPLETE CBC W/AUTO DIFF WBC CPT-4: 88267 09/25/2012 C-REACTIVE PROTEIN CPT-4: 88754 09/25/2012 THER/PROPH/DIAG INJ SC/IM CPT-4: 56269 08/29/2012 METHYLPREDNISOLONE 40 MG INJ CPT-4: J1030 08/29/2012 TRIAMCINOLONE ACET INJ NOS CPT-4: J3301 08/29/2012 DESTRUCT PREMALG LESION (Cryosurgery) CPT-4: 98724 THER/PROPH/DIAG INJ SC/IM CPT-4: 32820 05/06/2012 METHYLPREDNISOLONE 40 MG INJ CPT-4: J1030 05/06/2012 TRIAMCINOLONE ACET INJ NOS CPT-4: J3301 05/06/2012 VITAMIN B 12 FOLIC ACID CPT-4: 05149|56907 05/06/2012 RBC SED RATE AUTOMATED CPT-4: 35247 05/06/2012 ROUTINE VENIPUNCTURE CPT-4: 89738 05/06/2012 ASSAY OF FREE THYROXINE CPT-4: 08507 05/06/2012 ASSAY THYROID STIM HORMONE CPT-4: 36685 05/06/2012 COMPREHEN METABOLIC PANEL CPT-4: 20405 05/06/2012 COMPLETE CBC W/AUTO DIFF WBC CPT-4: 58060 05/06/2012 ASSAY OF BLOOD/URIC ACID CPT-4: 29417 05/06/2012 THER/PROPH/DIAG INJ SC/IM CPT-4: 46468 03/19/2012 KETOROLAC TROMETHAMINE INJ CPT-4: J1885 03/19/2012 KETOROLAC TROMETHAMINE INJ CPT-4: J1885 01/30/2012 THER/PROPH/DIAG INJ SC/IM CPT-4: 08698 01/30/2012 PROMETHAZINE HCL INJECTION CPT-4: J2550 01/30/2012 THER/PROPH/DIAG INJ SC/IM CPT-4: 76545 01/24/2012 METHYLPREDNISOLONE 40 MG INJ CPT-4: J1030 01/24/2012 TRIAMCINOLONE ACET INJ NOS CPT-4: J3301 01/24/2012 THER/PROPH/DIAG INJ SC/IM CPT-4: 77938 09/13/2011 KETOROLAC TROMETHAMINE INJ CPT-4: J1885 09/13/2011 THER/PROPH/DIAG INJ SC/IM CPT-4: 21673 09/13/2011 PROMETHAZINE HCL INJECTION CPT-4: J2550 09/13/2011 CEFTRIAXONE SODIUM INJECTION CPT-4: J0696 07/20/2011 THER/PROPH/DIAG INJ SC/IM CPT-4: 87901 07/20/2011 THER/PROPH/DIAG INJ SC/IM CPT-4: 74534 07/20/2011 METHYLPREDNISOLONE INJECTION CPT-4: J2930 07/20/2011 URINALYSIS NONAUTO W/O SCOPE CPT-4: 26015 05/09/2011 CEFTRIAXONE SODIUM INJECTION CPT-4: J0696 05/09/2011 THER/PROPH/DIAG INJ SC/IM CPT-4: 93732 05/09/2011 THER/PROPH/DIAG INJ SC/IM CPT-4: 38241 05/09/2011 PROMETHAZINE HCL INJECTION CPT-4: J2550 05/09/2011 HYDRATION IV INFUSION INIT CPT-4: 73690 05/09/2011 DESTRUCT PREMALG LESION (Cryosurgery) CPT-4: 11851 DESTRUCT PREMALG LES 2-14 CPT-4: 38008 07/19/2010 REMOVAL OF SKIN TAGS <W/15 CPT-4: 85358 05/30/2010 THER/PROPH/DIAG INJ SC/IM CPT-4: 89343 04/05/2010 CEFTRIAXONE SODIUM INJECTION CPT-4: J0696 04/05/2010 TRIAMCINOLONE ACET INJ NOS CPT-4: J3301 04/05/2010 METHYLPREDNISOLONE 40 MG INJ CPT-4: J1030 04/05/2010 THER/PROPH/DIAG INJ SC/IM CPT-4: 58690 04/05/2010 TRIAMCINOLONE ACET INJ NOS CPT-4: J3301 03/09/2010 METHYLPREDNISOLONE 40 MG INJ CPT-4: J1030 03/09/2010 THER/PROPH/DIAG INJ SC/IM CPT-4: 17188 03/09/2010 THER/PROPH/DIAG INJ SC/IM CPT-4: 78477 03/09/2010 CEFTRIAXONE SODIUM INJECTION CPT-4: J0696 03/09/2010 Vital Signs Date Vital 05/28/2019 Blood Pressure 1: 126/82 Code: 8480-6 BMI: 35.0 Code: 77515-7 Heart Rate 1: 88 bpm Height: 5'4" [...] 1: 128/90 Code: 8480-6 BMI: 37.2 Code: 01871-6 Heart Rate 1: 84 bpm Height: 5'4" Respiratory Rate: 20 bpm SpO2: 95% Tempera ture: 36.6 (C) / 97.8 (F) Weight: 217 lbs 08/27/2018 Blood Pressure 1: 128/88 Code: 8480-6 BMI: 38.3 Code: 31255-5 Heart Rate 1: 84 bpm Height: 5'4" [...] 1: 119/72 Code: 8480-6 BMI: 37.4 Code: 97445-4 Heart Rate 1: 82 bpm Height: 5'4" Respiratory Rate: 12 bpm SpO2: 94% Tempera ture: 35.2 (C) / 95.4 (F) Weight: 218 lbs 12/18/2017 Blood Pressure 1: 128/86 Code: 8480-6 BMI: 37.8 Code: 00726-3 Heart Rate 1: 84 bpm Height: 5'4" [...] 1: 128/82 Code: 8480-6 BMI: 35.5 Code: 62956-4 Heart Rate 1: 84 bpm Height: 5'4" [...] 1: 128/82 Code: 8480-6 BMI: 30.2 Code: 58081-4 Heart Rate 1: 80 bpm Height: 5'4" [...] 1: 128/86 Code: 8480-6 BMI: 32.8 Code: 76612-2 Heart Rate 1: 66 bpm Height: 5'4" Respiratory Rate: 18 bpm Temperature: 36 .3 (C) / 97.3 (F) Weight: 191 lbs 06/23/2013 Blood Pressure 1: 132/94 Code: 8480-6 BMI: 34.0 Code: 26459-0 Heart Rate 1: 84 bpm Height: 5'4" Respiratory Rate: 20 bpm Temperature: 36 .8 (C) / 98.2 (F) Weight: 198 lbs 05/26/2013 Blood Pressure 1: 114/80 Code: 8480-6 BMI: 35.0 Code: 65932-5 Heart Rate 1: 80 bpm Height: 5'4" Respiratory Rate: 20 bpm Temperature: 36 .4 (C) / 97.6 (F) Weight: 204 lbs 04/16/2013 Blood Pressure 1: 114/82 Code: 8480-6 BMI: 36.7 Code: 54393-8 Heart Rate 1: 84 bpm Height: 5'4" Respiratory Rate: 20 bpm Temperature: 36 .7 (C) / 98.0 (F) Weight: 214 lbs 03/05/2013 Blood Pressure 1: 136/90 Code: 8480-6 BMI: 37.1 Code: 99738-2 Heart Rate 1: 84 bpm Height: 5'4" [...] 1: 168/114 Code: 8480-6 BMI: 36.2 Code: 60922-9 Heart Rate 1: 104 bpm Height: 5'4" Respiratory Rate: 20 bpm Temperature: 36 .8 (C) / 98.2 (F) Weight: 211 lbs 11/22/2012 Blood Pressure 1: 128/90 Code: 8480-6 Heart Rate 1: 88 bpm Respiratory Rate: 20 bpm SpO2: 96% Temperature: 36.8 (C) / 98.2 (F) 11/21/2012 Blood Pressure 1: 146/100 Code: 8480-6 BMI: 35.7 Code: 85244-7 Heart Rate 1: 96 bpm Height: 5'4" [...] 1: 138/100 Code: 8480-6 BMI: 35.7 Code: 74971-9 Heart Rate 1: 96 bpm Height: 5'4" Respiratory Rate: 20 bpm Temperature: 36 .8 (C) / 98.2 (F) Weight: 208 lbs 05/06/2012 Blood Pressure 1: 154/102 Code: 8480-6 BMI: 34.7 Code: 77831-1 Heart Rate 1: 116 bpm Height: 5'4" Respiratory Rate: 20 bpm Temperature: 36 .8 (C) / 98.2 (F) Weight: 202 lbs 04/03/2012 Blood Pressure 1: 134/94 Code: 8480-6 BMI: 34.8 Code: 70767-0 Heart Rate 1: 108 bpm Height: 5'4" Respiratory Rate: 20 bpm Temperature: 36 .8 (C) / 98.2 (F) Weight: 203 lbs 03/19/2012 Blood Pressure 1: 148/106 Code: 8480-6 BMI: 35.0 Code: 84681-3 Heart Rate 1: 100 bpm Height: 5'4" Respiratory Rate: 20 bpm Temperature: 36 .6 (C) / 97.9 (F) Weight: 204 lbs 02/22/2012 Blood Pressure 1: 146/94 Code: 8480-6 He art Rate 1: 88 bpm 02/21/2012 Blood Pressure 1: 172/120 Code: 8480-6 B lood Pressure 2: 152/106 Code: 8480-6 Heart Rate 1: 116 bpm 02/20/2012 Blood Pressure 1: 160/100 Code: 8480-6 BMI: 32.0 Code: 01868-8 Heart Rate 1: 84 bpm Height: 5'7" Temperature: 36.5 (C) / 97.7 (F) Weight: 204 lbs 01/30/2012 Blood Pressure 1: 152/110 Code: 8480-6 BMI: 32.0 Code: 35258-6 Heart Rate 1: 116 bpm Height: 5'7" Respiratory Rate: 20 bpm Temperature: 37 .0 (C) / 98.6 (F) Weight: 204 lbs 01/24/2012 Blood Pressure 1: 146/100 Code: 8480-6 BMI: 32.0 Code: 90442-2 Heart Rate 1: 100 bpm Height: 5'7" Respiratory Rate: 20 bpm Temperature: 36 .7 (C) / 98.0 (F) Weight: 204 lbs 01/10/2012 Blood Pressure 1: 156/94 Code: 8480-6 BMI: 32.6 Code: 82694-1 Heart Rate 1: 72 bpm Height: 5'7" Respiratory Rate: 20 bpm Temperature: 36 .8 (C) / 98.2 (F) Weight: 208 lbs 12/11/2011 Blood Pressure 1: 146/100 Code: 8480-6 Heart Rat e 1: 116 bpm Height: 5'7" Respiratory Rate: 20 bpm Temperature: 36.9 (C) / 98.4 (F) We ight: 11/09/2011 Blood Pressure 1: 148/96 Code: 8480-6 BMI: 32.1 Code: 54030-8 Heart Rate 1: 116 bpm Height: 5'7" Respiratory Rate: 20 bpm Temperature: 36 .7 (C) / 98.0 (F) Weight: 205 lbs 09/13/2011 Blood Pressure 1: 126/88 Code: 8480-6 Heart Rate 1: 88 bpm Height: 5'7" Respiratory Rate: 20 bpm Temperature: 36.9 (C) / 98.4 (F) We ight: 08/31/2011 Blood Pressure 1: 118/82 Code: 8480-6 BMI: 32.0 Code: 03010-4 Heart Rate 1: 80 bpm Height: 5'7" Temperature: 36.4 (C) / 97.6 (F) Weight: 204 lbs 07/06/2011 Blood Pressure 1: 128/86 Code: 8480-6 BMI: 30.9 Code: 23124-0 Heart Rate 1: 92 bpm Height: 5'7" Respiratory Rate: 20 bpm Temperature: 36 .9 (C) / 98.4 (F) Weight: 197 lbs 06/06/2011 Blood Pressure 1: 112/74 Code: 8480-6 BMI: 31.0 Code: 28229-1 Heart Rate 1: 72 bpm Height: 5'7" [...] 1: 128/92 Code: 8480-6 BMI: 33.6 Code: 90442-7 Heart Rate 1: 104 bpm Height: 5'4" [...] Check-up Encounters Encounter Performer Location Codes Date ([id number]) OFFICE/OUTPATIENT VISIT EST Diagnosis: Essential (primary) hypertension[ICD10: I10] Diagnosis: Fall from bed, sequela[ICD10: W06.XXXS] María Elena BRAUNGAEL Fabiola APPIAH DO [facility] CPT-4: 59095 05/28/2019 ([id number]) NURSE/OUTPATIENT VISIT EST Diagnosis: Essential (primary) hypertension[ICD10: I10] María Elena APPIAH DO [facility] CPT-4: 23610 05/19/2019 ([id number]) OFFICE/OUTPATIENT VISIT EST Diagnosis: Essential (primary) hypertension[ICD10: I10] Diagnosis: Type 2 diabetes mellitus with hyperglycemia[ICD10: E11.65] Diagnosis: Intervertebral disc disorders with radiculopathy, 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] Diagnosis: Hormone replacement therapy[ICD10: Z79.890] María Elena ELLISLINE Fabiola APPIAH DO [facility] CPT-4: 53200 01/22/2019 ([id number]) OFFICE/OUTPATIENT VISIT EST Diagnosis: Essential (primary) hypertension[ICD10: I10] Diagnosis: Type 2 diabetes mellitus with hyperglycemia[ICD10: E11.65] María Elena APPIAH [employer] [facility] CPT-4: 15804 09/30/2018 ([id number]) OFFICE/OUTPATIENT VISIT EST Diagnosis: Pain in left elbow[ICD10: M25.522] Diagnosis: Acute stress reaction[ICD10: F43.0] Diagnosis: Primary insomnia[ICD10: F51.01] Diagnosis: Abnormal weight gain[ICD10: R63.5] María Elena Seamusdawn MONTEROAPARNACIARRA JEAN Fabiola APPIAH [employer] [facility] CPT-4: 40930 08/27/2018 ([id number]) OFFICE/OUTPATIENT VISIT EST Diagnosis: Acute recurrent sinusitis, unspecified[ICD10: J01.91] Diagnosis: Follicular disorder, unspecified[ICD10: L73.9] Diagnosis: Tinea corporis[ICD10: B35.4] María Elenamarcella ELLISLINE Fabiola APPIAH [employer] [facility] CPT-4: 54722 08/09/2018 ([id number]) OFFICE/OUTPATIENT VISIT EST Diagnosis: Tinea corporis[ICD10: B35.4] Diagnosis: Anxiety disorder, unspecified[ICD10: F41.9] Diagnosis: Menopausal and female climacteric states[ICD10: N95.1] María Elena APPIAH DO [facility] CPT-4: 17585 07/22/2018 ([id number]) NURSE/OUTPATIENT VISIT EST Diagnosis: Cellulitis of right toe[ICD10: L03.031] María Elena APPIAH DO [facility] CPT-4: 47495 06/19/2018 ([id number]) OFFICE/OUTPATIENT VISIT EST Diagnosis: Cellulitis of right toe[ICD10: L03.031] Kathleen APPIAH DO [facility] CPT-4: 09388 06/17/2018 ([id number]) OFFICE/OUTPATIENT VISIT EST Diagnosis: Migraine without aura, intractable, without status migrainosus[ICD10: G43.019] Diagnosis: Zoster without complications[ICD10: B02.9] Kathleen APPIAH DO [facility] CPT-4: 95996 05/16/2018 ([id number]) OFFICE/OUTPATIENT VISIT EST Diagnosis: Cellulitis of right lower limb[ICD10: L03.115] Kathleen APPIAH DO [facility] CPT-4: 09403 03/20/2018 ([id number]) OFFICE/OUTPATIENT VISIT EST Diagnosis: Cellulitis of right lower limb[ICD10: L03.115] Kathleen APPIAH DO [facility] CPT-4: 30449 03/18/2018 ([id number]) OFFICE/OUTPATIENT VISIT EST Diagnosis: Cellulitis of right lower limb[ICD10: L03.115] Kathleen APPIAH DO [facility] CPT-4: 37228 03/15/2018 ([id number]) OFFICE/OUTPATIENT VISIT EST Diagnosis: Acute sinusitis, unspecified[ICD10: J01.90] Kathleen APPIAH DO [facility] CPT-4: 68351 02/11/2018 ([id number]) NURSE/OUTPATIENT VISIT EST Diagnosis: Otitis media, unspecified, right ear[ICD10: H66.91] María Elena APPIAH [employer] [facility] CPT-4: 01232 02/01/2018 ([id number]) OFFICE/OUTPATIENT VISIT EST Diagnosis: Acute suppurative otitis media without spontaneous rupture of ear drum, left ear[ICD10: H66.002] Diagnosis: Abnormal weight gain[ICD10: R63.5] Diagnosis: Intervertebral disc disorders with radiculopathy, 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] Kathleen APPIAH DO [facility] CPT-4: 99 214 01/30/2018 ([id number]) PREV VISIT EST AGE 40-64 Diagnosis: Encounter for general adult medical examination without abnormal findings[ICD10: Z00.00] Diagnosis: Essential (primary) hypertension[ICD10: I10] Diagnosis: Mixed hyperlipidemia[ICD10: E78.2] Diagnosis: Type 2 diabetes mellitus with hyperglycemia[ICD10: E11.65] Diagnosis: 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] María Elena APPIAH [employer] [facility] CPT-4: 62026 12/18/2017 ([id number]) OFFICE/OUTPATIENT VISIT EST Diagnosis: Cellulitis of right toe[ICD10: L03.031] Diagnosis: Mixed hyperlipidemia[ICD10: E78.2] Diagnosis: Essential (primary) hypertension[ICD10: I10] Diagnosis: Hyperglycemia, unspecified[ICD10: R73.9] Diagnosis: Nontoxic goiter, 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] María Elena APPIAH [employer] [facility] CPT-4: 00256 12/10/2017 ([id number]) OFFICE/OUTPATIENT VISIT EST Diagnosis: Cellulitis of right toe[ICD10: L03.031] Diagnosis: Acute sinusitis, unspecified[ICD10: J01.90] Kathleen APPIAH [employer] [facility] CPT-4: 10763 12/07/2017 OFFICE/OUTPATIENT VISIT EST Diagnosis: Acute maxillary sinusitis, unspecified[ICD10: J01.00] Kathleen APPIAH DO [facility] CPT-4: 57212 10/08/2017 ([id number]) OFFICE/OUTPATIENT VISIT EST Diagnosis: Cellulitis of left toe[ICD10: L03.032] María Elena APPIAH [employer] [facility] CPT-4: 12931 09/21/2017 ([id number]) OFFICE/OUTPATIENT VISIT EST Diagnosis: Insomnia, unspecified[ICD10: G47.00] Diagnosis: Major depressive disorder, single episode, unspecified[ICD10: F32.9] Diagnosis: Anxiety disorder, unspecified[ICD10: F41.9] Diagnosis: Cellulitis of left toe[ICD10: L03.032] Diagnosis: Snoring[ICD10: R06.83] Kathleen APPIAH DO [facility] CPT-4: 39218 09/20/2017 ([id number]) OFFICE/OUTPATIENT VISIT EST Diagnosis: Cellulitis of left toe[ICD10: L03.032] María Elena Waymindivictorino ORTA [employer] [facility] CPT-4: 33485 07/19/2017 OFFICE/OUTPATIENT VISIT EST Diagnosis: Chronic sinusitis, unspecified[ICD10: J32.9] Diagnosis: Generalized hyperhidrosis[ICD10: R61] Kathleen APPIAH [employer] [facility] CPT-4: 42827 06/27/2017 ([id number]) OFFICE/OUTPATIENT VISIT EST Diagnosis: Intervertebral disc disorders with radiculopathy, 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] Diagnosis: Primary insomnia[ICD10: F51.01] Diagnosis: Other fatigue[ICD10: R53.83] María Elena JUARES AlanJj MARIVEL [employer] [facility] CPT-4: 27502 04/10/2017 ([id number]) OFFICE/OUTPATIENT VISIT EST Diagnosis: Primary insomnia[ICD10: F51.01] Diagnosis: Localized edema[ICD10: R60.0] Diagnosis: 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] María Elena JUARES AlanJj [facility] CPT-4: 50827 12/13/2016 ([id number]) OFFICE/OUTPATIENT VISIT EST Diagnosis: Primary insomnia[ICD10: F51.01] Diagnosis: Cyanosis[ICD10: R23.0] María Elena JUARES AlanJj SEAMUSGALINA [employer] [facility] CPT-4: 60609 11/01/2016 ([id number]) PREV VISIT EST AGE 40-64 Diagnosis: Encounter for gynecological examination (general) (routine) without abnormal findings[ICD10: Z01.419] Diagnosis: Encounter for routine child health examination without abnormal findings[ICD10: Z00.129] María Elena APPIAH DO [facility] CPT-4: 25944 10/17/2016 ([id number]) OFFICE/OUTPATIENT VISIT EST Diagnosis: Other seasonal allergic rhinitis[ICD10: J30.2] María Elena APPIAH DO [facility] CPT-4: 13744 10/10/2016 ([id number]) OFFICE/OUTPATIENT VISIT EST Diagnosis: Pain in left arm[ICD10: M79.602] Diagnosis: Contact with and (suspected) exposure to potentially hazardous body fluids[ICD10: Z77.21] Diagnosis: 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91] Diagnosis: Acute bronchitis, unspecified[ICD10: J20.9] María Elena APPIAH DO [facility] CPT-4: 34240 08/10/2016 ([id number]) OFFICE/OUTPATIENT VISIT EST Diagnosis: Acute recurrent sinusitis, unspecified[ICD10: J01.91] Diagnosis: Allergic rhinitis due to pollen[ICD10: J30.1] María Elena APPIAH DO [facility] CPT-4: 89407 08/02/2016 ([id number]) OFFICE/OUTPATIENT VISIT EST Diagnosis: Pain in unspecified joint[ICD10: M25.50] María Elena APPIAH DO [facility] CPT-4: 44965 07/27/2016 OFFICE/OUTPATIENT VISIT EST Diagnosis: 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] Diagnosis: Acute recurrent sinusitis, unspecified[ICD10: J01.91] Diagnosis: Other fatigue[ICD10: R53.83] Diagnosis: Primary insomnia[ICD10: F51.01] Diagnosis: Pain in unspecified joint[ICD10: M25.50] María Elena APPIAH DO [facility] CPT-4: 70285 07/20/2016 ([id number]) OFFICE/OUTPATIENT VISIT EST Diagnosis: Blister (nonthermal), left great toe, initial encounter[ICD10: S90.422A] Loan APPIAH [employer] [facility] CPT-4: 21301 ([id number]) OFFICE/OUTPATIENT VISIT EST Diagnosis: Acute recurrent sinusitis, unspecified[ICD10: J01.91] María Elena APPIAH DO [facility] CPT-4: 95988 05/25/2016 ([id number]) OFFICE/OUTPATIENT VISIT EST Diagnosis: Acute sinusitis, unspecified[ICD10: J01.90] María Elena APPIAH DO [facility] CPT-4: 73735 04/26/2016 ([id number]) OFFICE/OUTPATIENT VISIT EST Diagnosis: Flushing[ICD10: R23.2] Diagnosis: Primary insomnia[ICD10: F51.01] María Elena APPIAH DO [facility] CPT-4: 32113 03/02/2016 ([id number]) OFFICE/OUTPATIENT VISIT EST Diagnosis: Other seasonal allergic rhinitis[ICD10: J30.2] Loan APPIAH DO [facility] CPT-4: 03792 02/09/2016 ([id number]) OFFICE/OUTPATIENT VISIT EST Diagnosis: Primary insomnia[ICD10: F51.01] Diagnosis: Urinary tract infection, site not specified[ICD10: N39.0] María Elena APPIAH [facility] CPT-4: 20062 01/24/2016 ([id number]) OFFICE/OUTPATIENT VISIT EST Diagnosis: Other specified disorders of Eustachian tube, bilateral[ICD10: H69.83] Diagnosis: Allergic rhinitis, unspecified[ICD10: J30.9] Loan APPIAH [facility] CPT-4: 20610 12/23/2015 ([id number]) OFFICE/OUTPATIENT VISIT EST Diagnosis: Acute recurrent sinusitis, unspecified[ICD10: J01.91] Diagnosis: 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] Diagnosis: Allergic rhinitis, unspecified[ICD10: J30.9] María Elena APPIAH [facility] CPT-4: 19930 12/08/2015 ([id number]) OFFICE/OUTPATIENT VISIT EST Diagnosis: Allergic rhinitis, unspecified[ICD10: J30.9] Diagnosis: Pain in unspecified joint[ICD10: M25.50] María Elena APPIAH [facility] CPT-4: 46234 10/07/2015 ([id number]) OFFICE/OUTPATIENT VISIT EST Diagnosis: Essential (primary) hypertension[ICD10: I10] María Elena APPIAH [facility] CPT-4: 51297 10/06/2015 OFFICE/OUTPATIENT VISIT EST Diagnosis: Localized enlarged lymph nodes[ICD10: R59.0] Diagnosis: Local infection of the skin and subcutaneous tissue, unspecified[ICD10: L08.9] June Flores MARÍA ELENA APPIAH [facility] CPT- 4: 98864 09/14/2015 ([id number]) OFFICE/OUTPATIENT VISIT EST Diagnosis: Essential (primary) hypertension[ICD10: I10] Diagnosis: Actinic keratosis[ICD10: L57.0] María Elena APPIAH [facility] CPT-4: 75778 09/07/2015 ([id number]) OFFICE/OUTPATIENT VISIT EST Diagnosis: Essential (primary) hypertension[ICD10: I10] Diagnosis: Acute stress reaction[ICD10: F43.0] María Elena APPIAH DO [facility] CPT-4: 78794 08/18/2015 ([id number]) OFFICE/OUTPATIENT VISIT EST Diagnosis: Essential (primary) hypertension[ICD10: I10] María Elena APPIAH DO [facility] CPT-4: 24570 07/07/2015 ([id number]) OFFICE/OUTPATIENT VISIT EST Diagnosis: Essential (primary) hypertension[ICD10: I10] María Elena APPIAH DO [facility] CPT-4: 42393 06/24/2015 ([id number]) OFFICE/OUTPATIENT VISIT EST Diagnosis: Essential (primary) hypertension[ICD10: I10] María Elena APPIAH DO [facility] CPT-4: 32636 06/21/2015 ([id number]) OFFICE/OUTPATIENT VISIT EST Diagnosis: Essential (primary) hypertension[ICD10: I10] Diagnosis: Mixed hyperlipidemia[ICD10: E78.2] Diagnosis: Acute stress reaction[ICD10: F43.0] Diagnosis: Primary insomnia[ICD10: F51.01] María Elena APPIAH DO [facility] CPT-4: 84554 06/16/2015 ([id number]) OFFICE/OUTPATIENT VISIT EST Diagnosis: INSOMNIA NOS[ICD9: 780.52] Diagnosis: HYPERTENSION[ICD9: 401.9] Diagnosis: Stress reaction[ICD9: 308.9] María Elena APPIAH DO [facility] CPT-4: 15562 06/02/2015 ([id number]) OFFICE/OUTPATIENT VISIT EST Diagnosis: HYPERTENSION[ICD9: 401.9] Diagnosis: Stress reaction[ICD9: 308.9] María Elena APPIAH DO [facility] CPT-4: 07027 05/20/2015 ([id number]) OFFICE/OUTPATIENT VISIT EST Diagnosis: Skin lesion[ICD9: 709.9] 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] María Elena APPIAH DO [facility] CPT-4: 53127 05/10/2015 ([id number]) OFFICE/OUTPATIENT VISIT EST Diagnosis: SINUSITIS, ACUTE[ICD9: 461.9] Diagnosis: ALLERGIC RHINITIS[ICD9: 477.9] Diagnosis: DERMATITIS NOS[ICD9: 692.9] María Elena REHMAN [facility] CPT-4: 33549 03/16/2015 OFFICE/OUTPATIENT VISIT EST Diagnosis: Otitis media[ICD9: 382.9] Diagnosis: SINUSITIS, ACUTE[ICD9: 461.9] June APPIAH [facility] CPT-4: 87460 09/11/2014 ([id number]) OFFICE/OUTPATIENT VISIT EST Diagnosis: HYPERLIPIDEMIA NEC/NOS[ICD9: 272.4] María Elena APPIAH DO [facility] CPT-4: 85457 08/31/2014 ([id number]) OFFICE/OUTPATIENT VISIT EST Diagnosis: - I - HYPERTENSION[ICD9: 401.9] Diagnosis: HYPERLIPIDEMIA NEC/NOS[ICD9: 272.4] María Elena APPIAH [facility] CPT-4: 89601 08/27/2014 ([id number]) OFFICE/OUTPATIENT VISIT EST Diagnosis: ABDOMINAL PAIN[ICD9: 789.00] Diagnosis: DYSPEPSIA[ICD9: 536.8] Diagnosis: Thoracic back pain[ICD9: 724.1] María Elena APPIAH [facility] CPT-4: 08695 07/21/2014 ([id number]) OFFICE/OUTPATIENT VISIT EST Diagnosis: ALLERGIC RHINITIS[ICD9: 477.9] María Elena APPIAH DO [facility] CPT-4: 78672 07/15/2014 ([id number]) OFFICE/OUTPATIENT VISIT EST Diagnosis: EDEMA[ICD9: 782.3] Diagnosis: Chronic insomnia[ICD9: 780.52] María Elena APPIAH DO [facility] CPT-4: 80636 05/18/2014 ([id number]) OFFICE/OUTPATIENT VISIT EST Diagnosis: Thyromegaly[ICD9: 240.9] Diagnosis: - I - HYPERTENSION[ICD9: 401.9] Diagnosis: ROUTINE MEDICAL EXAM[ICD9: V70.0] Diagnosis: EDEMA[ICD9: 782.3] María Elena APPIAH [facility] CPT-4: 03143 05/14/2014 OFFICE/OUTPATIENT VISIT EST Diagnosis: BRONCHITIS, ACUTE[ICD9: 466.0] Diagnosis: SINUSITIS, ACUTE[ICD9: 461.9] María Elena APPIAH [facility] CPT-4: 21823 04/21/2014 OFFICE/OUTPATIENT VISIT EST Diagnosis: SINUSITIS, ACUTE[ICD9: 461.9] June Gabriellafatimah APPIAH [facility] CPT-4: 21673 03/04/2014 ([id number]) OFFICE/OUTPATIENT VISIT EST Diagnosis: VACCINE FOR TDAP[ICD10: Z23] [facility] CPT[facility]: 08029 02/27/2014 ([id number]) OFFICE/OUTPATIENT VISIT EST Diagnosis: Seborrheic keratoses, inflamed[ICD9: 702.11] Diagnosis: ACTINIC KERATOSIS[ICD9: 702.0] Diagnosis: INSOMNIA NOS[ICD9: 780.52] María Elena [facility] CPT-4: 60854 01/13/2014 OFFICE/OUTPATIENT VISIT EST Diagnosis: EUSTACHIAN TUBE DYSFUNCTION[ICD9: 381.81] Diagnosis: ALLERGIC RHINITIS[ICD9: 477.9] Diagnosis: Serous otitis media[ICD9: 381.4] María Elena [facility] CPT-4: 94201 12/24/2013 ([id number]) OFFICE/OUTPATIENT VISIT EST Diagnosis: SINUSITIS, ACUTE[ICD9: 461.9] Diagnosis: ALLERGIC RHINITIS[ICD9: 477.9] Diagnosis: EUSTACHIAN TUBE DYSFUNCTION[ICD9: 381.81] [facility]: 50340 11/12/2013 ([id number]) OFFICE/OUTPATIENT VISIT EST Diagnosis: ALLERGIC RHINITIS[ICD9: 477.9] Diagnosis: SINUSITIS, ACUTE[ICD9: 461.9] María Elena [facility] CPT-4: 34719 10/21/2013 ([id number]) OFFICE/OUTPATIENT VISIT EST Diagnosis: ASYMPTOMATIC VARICOSE VEINS[ICD9: 454.9] Diagnosis: INSOMNIA NOS[ICD9: 780.52] María Elena [facility] CPT-4: 04680 09/22/2013 OFFICE/OUTPATIENT VISIT EST Diagnosis: SINUSITIS, ACUTE[ICD9: 461.9] June Sandra [facility] CPT-4: 07283 08/27/2013 ([id number]) OFFICE/OUTPATIENT VISIT EST Diagnosis: CEPHALGIA[ICD9: 784.0] Diagnosis: CEPHALGIA, TENSION[ICD9: 307.81] 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] María Elena [facility] CPT-4: 55294 08/04/2013 ([id number]) OFFICE/OUTPATIENT VISIT EST Diagnosis: Cervicalgia[ICD9: 723.1] Diagnosis: SPASM OF MUSCLE[ICD9: 728.85] Diagnosis: CEPHALGIA, TENSION[ICD9: 307.81] María Elena [facility] CPT-4: 87989 07/23/2013 ([id number]) OFFICE/OUTPATIENT VISIT EST 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] Diagnosis: ALLERGIC RHINITIS[ICD9: 477.9] María Elena [facility] CPT-4: 61853 06/23/2013 ([id number]) OFFICE/OUTPATIENT VISIT EST Diagnosis: ALLERGIC RHINITIS[ICD9: 477.9] Diagnosis: ACUTE SEROUS OTITIS MEDIA[ICD9: 381.01] 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] María Elena APPIAH [facility] CPT-4: 99962 05/26/2013 ([id number]) OFFICE/OUTPATIENT VISIT EST Diagnosis: HYPERTENSION[ICD9: 401.9] Diagnosis: EDEMA[ICD9: 782.3] Diagnosis: Serous otitis media[ICD9: 381.4] María Elena JUARES AlanJj [facility] CPT-[facility]: 36961 04/16/2013 ([id number]) OFFICE/OUTPATIENT VISIT EST Diagnosis: SINUSITIS, ACUTE[ICD9: 461.9] Diagnosis: ALLERGIC RHINITIS[ICD9: 477.9] Diagnosis: EDEMA[ICD9: 782.3] Diagnosis: Thyromegaly[ICD9: 240.9] Diagnosis: MALAISE AND FATIGUE[ICD9: 780.79] María Elena Lopez Fabiola [facility] CPT-4: 97303 03/05/2013 ([id number]) OFFICE/OUTPATIENT VISIT EST Diagnosis: PAIN, LOWER BACK[ICD9: 724.2] Diagnosis: SPASM OF MUSCLE[ICD9: 728.85] María Elena JUARES AlanJj [facility] CPT-[facility]: 93941 12/23/2012 OFFICE/OUTPATIENT VISIT EST Diagnosis: Low back pain[ICD9: 724.2] Lashawn Hicks [facility] CPT-4: 32065 12/16/2012 ([id number]) OFFICE/OUTPATIENT VISIT EST Diagnosis: PAIN, LOWER BACK[ICD9: 724.2] Diagnosis: SCIATICA[ICD9: 724.3] Diagnosis: Lumbar herniated disc[ICD9: 722.10] María Elena COLON AlanJj [facility] CPT-[facility]: 85783 12/09/2012 ([id number]) OFFICE/OUTPATIENT VISIT EST Diagnosis: PAIN, LOWER BACK[ICD9: 724.2] Diagnosis: SCIATICA[ICD9: 724.3] Diagnosis: LUMBAR DISC DISPLACEMENT[ICD9: 722.10] María Elena MARIN AlanJj [facility] CPT-4: 37903 12/04/2012 OFFICE/OUTPATIENT VISIT EST Diagnosis: Pneumonia[ICD9: 486] Mary JUARES AlanJj [facility] CPT-4: 78378 11/22/2012 ([id number]) OFFICE/OUTPATIENT VISIT EST Diagnosis: PNEUMONIA, ORGANISM[ICD9: 486] Diagnosis: Exacerbation of RAD (reactive airway disease)[ICD9: 493.92] María Elenamarcella APPIAH DO [facility] CPT-4: 47219 11/21/2012 OFFICE/OUTPATIENT VISIT EST Diagnosis: HYPERTENSION[ICD9: 401.9] Diagnosis: Cephalgia[ICD9: 784.0] Lashawn APPIAH DO [facility] CPT-4: 10248 10/29/2012 ([id number]) OFFICE/OUTPATIENT VISIT EST Diagnosis: MALAISE AND FATIGUE[ICD9: 780.79] Diagnosis: ARTHRALGIA-MULTIPLE SITES[ICD9: 719.49] María Elena APPIAH DO [facility] CPT-4: 71547 10/14/2012 ([id number]) OFFICE/OUTPATIENT VISIT EST Diagnosis: URINARY FREQUENCY[ICD9: 788.41] María Elena APPIAH DO [facility] CPT-4: 12162 09/27/2012 ([id number]) OFFICE/OUTPATIENT VISIT EST Diagnosis: MALAISE AND FATIGUE[ICD9: 780.79] Diagnosis: ARTHRALGIA-MULTIPLE SITES[ICD9: 719.49] María Elena APPIAH DO [facility] CPT-4: 62844 09/25/2012 ([id number]) OFFICE/OUTPATIENT VISIT EST Diagnosis: SINUSITIS, ACUTE[ICD9: 461.9] Diagnosis: EUSTACHIAN TUBE DYSFUNCTION[ICD9: 381.81] María Elena APPIAH DO [facility] CPT-4: 79616 08/29/2012 OFFICE/OUTPATIENT VISIT EST Diagnosis: ACTINIC KERATOSIS[ICD9: 702.0] Diagnosis: Inflamed seborrheic keratosis[ICD9: 702.11] Diagnosis: Skin cancer of face[ICD9: 173.31] Diagnosis: HYPERTENSION[ICD9: 401.9] María Elena Waymindivictorino ValdesJj [facility] CPT-4: 32774 08/12/2012 ([id number]) OFFICE/OUTPATIENT VISIT EST Diagnosis: ARTHRALGIA-MULTIPLE SITES[ICD9: 719.49] Diagnosis: GOUT[ICD9: 274.9] Diagnosis: HYPERTENSION[ICD9: 401.9] Diagnosis: Tachycardia[ICD9: 785.0] María Elenagael MONTEROQUELINE AlanJj FRTIZ REDDY [facility] CPT-4: 08766 05/06/2012 ([id number]) OFFICE/OUTPATIENT VISIT EST Diagnosis: INSOMNIA NOS[ICD9: 780.52] María Elena Seamusdawn JUARES AlanJj K[facility] P[facility] CPT-4: 20124 04/03/2012 ([id number]) OFFICE/OUTPATIENT VISIT EST Diagnosis: INSOMNIA NOS[ICD9: 780.52] Diagnosis: HYPERTENSION[ICD9: 401.9] Diagnosis: MIGRAINE NOS/NOT INTRCBL[ICD9: 346.90] María Elena MARIN AlanJj TD [facility] CPT-4: 61913 03/19/2012 ([id number]) OFFICE/OUTPATIENT VISIT EST Diagnosis: CELLULITIS[ICD9: 682.9] Diagnosis: Ankle pain[ICD9: 719.47] Diagnosis: HYPERTENSION[ICD9: 401.9] María Elena Seamusdawn JUARES AlanJj [facility] MOJICARose Mary [facility] CPT-4: 59191 02/20/2012 ([id number]) OFFICE/OUTPATIENT VISIT EST Diagnosis: MIGRAINE NOS/NOT INTRCBL[ICD9: 346.90] Diagnosis: Vomiting[ICD9: 787.03] María Elenamarcella JUARES AlanJj [facility] Rose Mary [facility] CPT-4: 81367 01/30/2012 ([id number]) OFFICE/OUTPATIENT VISIT EST Diagnosis: EDEMA[ICD9: 782.3] Diagnosis: HYPERTENSION[ICD9: 401.9] Diagnosis: ALLERGIC RHINITIS[ICD9: 477.9] Diagnosis: ARTHRALGIA-MULTIPLE SITES[ICD9: 719.49] María Elena REED AlanJj [facility] CPT-4: 85278 01/24/2012 ([id number]) OFFICE/OUTPATIENT VISIT EST Diagnosis: SPASM OF MUSCLE[ICD9: 728.85] Diagnosis: Thoracic back pain[ICD9: 724.1] Diagnosis: Cervical pain[ICD9: 723.1] María Elena Hicks KRISTYN PANDYA [facility] CPT-4: 91909 01/10/2012 OFFICE/OUTPATIENT VISIT EST Diagnosis: PAIN, LOWER BACK[ICD9: 724.2] Diagnosis: LUMBAR DISC DISPLACEMENT[ICD9: 722.10] María Elena MARIN AlanJj [facility] CPT-4: 07481 12/11/2011 OFFICE/OUTPATIENT VISIT EST Diagnosis: MIGRAINE NOS/NOT INTRCBL[ICD9: 346.90] Diagnosis: SINUSITIS, ACUTE[ICD9: 461.9] María Elena MONTEROQUELINE AlanJj TD [facility] CPT-4: 47633 11/09/2011 OFFICE/OUTPATIENT VISIT EST Diagnosis: MIGRAINE NOS/NOT INTRCBL[ICD9: 346.90] Diagnosis: LYMPHADENOPATHY[ICD9: 785.6] María Elena ELLISLINE AlanJj TD [facility] CPT-4: 08202 09/13/2011 OFFICE/OUTPATIENT VISIT EST Diagnosis: MALAISE AND FATIGUE[ICD9: 780.79] Diagnosis: ARTHRALGIA-MULTIPLE SITES[ICD9: 719.49] María Elena Seamusdawn MONTERO APARNAGAEL AlanJj MARIVELVICTORINO [facility] CPT-4: 90839 08/31/2011 OFFICE/OUTPATIENT VISIT EST Diagnosis: SINUSITIS, ACUTE[ICD9: 461.9] María Elena Oredawn JUARES AlanJj [facility] CPT-4: 21975 07/20/2011 OFFICE/OUTPATIENT VISIT EST Diagnosis: HYPERTENSION[ICD9: 401.9] Diagnosis: PAIN, LOWER BACK[ICD9: 724.2] Diagnosis: SPASM OF MUSCLE[ICD9: 728.85] María Elena Appiah MARÍA ELENA AlanJj TD [facility] CPT-4: 79618 07/06/2011 OFFICE/OUTPATIENT VISIT EST Diagnosis: MIGRAINE NOS/NOT INTRCBL[ICD9: 346.90] Diagnosis: HYPERTENSION[ICD9: 401.9] María Elena Seamusdawn Hicks SE[facility]US DAWN [facility] CPT-4: 46138 05/22/2011 OFFICE/OUTPATIENT VISIT EST Diagnosis: SINUSITIS, ACUTE[ICD9: 461.9] Diagnosis: MIGRAINE NOS/NOT INTRCBL[ICD9: 346.90] Diagnosis: Dehydration[ICD9: 276.51] Diagnosis: Vomiting[ICD9: 787.03] María Elena Hicks [facility] CPT-4: 41037 05/09/2011 ([id number]) OFFICE/OUTPATIENT VISIT EST María Elena Orender [facility] CPT-4: 91891 02/14/2011 ([id number]) OFFICE/OUTPATIENT VISIT EST María Elena Ortaer [facility] CPT-4: 78605 02/03/2011 ([id number]) OFFICE/OUTPATIENT VISIT EST María Elenamarcella Ortaer [facility] CPT-4: 14842 01/31/2011 ([id number]) OFFICE/OUTPATIENT VISIT EST María Elenamarcella Ortaer [facility] CPT-4: 13389 01/25/2011 ([id number]) OFFICE/OUTPATIENT VISIT EST María Elenamarcella Ortaer [facility] CPT-4: 14175 01/18/2011 ([id number]) OFFICE/OUTPATIENT VISIT EST María Elena Ortaer [facility] CPT-4: 42405 11/29/2010 ([id number]) OFFICE/OUTPATIENT VISIT, EST María Elena Ortaer [facility] CPT-4: 82975 10/10/2010 ([id number]) OFFICE/OUTPATIENT VISIT, EST María Elenamarcella Ortaer [facility] CPT-4: 39088 06/07/2010 ([id number]) OFFICE/OUTPATIENT VISIT, EST María Elena Ortaer [facility] CPT-4: 51926 04/27/2010 ([id number]) OFFICE/OUTPATIENT VISIT, EST María Elena MONTERO [facility] CPT-4: 76775 04/05/2010 ([id number]) OFFICE/OUTPATIENT VISIT, EST María Elenamarcella Ortaer [facility] CPT-4: 80225 03/09/2010 ([id number]) OFFICE/OUTPATIENT VISIT, EST María Elenamarcella Ortaer [facility] CPT-4: 84563 03/03/2010 ([id number]) OFFICE/OUTPATIENT VISIT, EST María Elena Ortaer [facility] CPT-4: 59617 01/17/2010 ([id number]) PREV VISIT, EST, AGE 40-64 María Elena MONTEROMICHAEL ValdesJj APPIAH DO [facility] CPT-4: 36174 12/27/2009 Plan of Care Planned Activity Notes Codes Status Date Appointment: María Elena Appiahtel: [facility] [place] Won't have the new insurance [...] I10 05/28/2019 Appointment: María Elena Appiah WPtel: [address] [place], [place] [phone] [place] FOLLOW UP 05/28/2019 Appointment: María Elena Appiah WPtel: [address] [place], [place] [phone] [place] BP CHECK 05/19/2019 Visit Diagnosis Plan: [...] M51.16 01/22/2019 Appointment: María Elena Appiah WPtel: [address] [place], [place] [phone] [place] FOLLOW UP 01/22/2019 Patient Education: estradiol- [employer] Coupon [id number] [email or web address] Completed 01/22/2019 Appointment: María Elena Appiah WPtel: [address] [place], [place] [phone] [place] CANCELED 01/20/2019 Appointment: María Elena Appiah WPtel: [address] [place], [place] [phone] [place] LM NO SHOW 01/06/2019 Appointment: María Elena Appiah WPtel: [address] [place], [place] [phone] [place] CANCELED 10/17/2018 Appointment: María Elena Appiah WPtel: [address] [place], [place] [phone] [place] BP CHECK 10/09/2018 Visit Diagnosis Plan: [...] 09/30/2018 Appointment: María Elena Appiah WPtel: [address] [place], [place] [phone] [place] FOLLOW UP 09/30/2018 Visit Diagnosis Plan: [...] R63.5 08/27/2018 Appointment: María Elena Appiah WPtel: [address] [place] [address] ACUTE ILLNESS 08/27/2018 Appointment: María Elena Appiah WPtel: [address] [place] [address] [place] Patient stated she went out to start her car to come here and she has a flat tire. NO SHOW - FORGIVEN 08/19/2018 Visit Plan: Saline nasal flushes prn. Ty lenol/Motrin prn headache. Notify if persists/symptoms worsening. 08/09/2018 Visit Diagnosis Plan: Tinea corporis Discussion: Difmikhail can ICD-9 : 110.5 ICD-10 : B35.4 08/09/2018 Visit NOS Plan: Plan Notes: Saline nasal flu shes prn. Tyle... 08/09/2018 Visit Diagnosis Plan: Follicular disorder, unspecified Discussion: Keflex ICD-9 : 704.8 ICD-10 : L73.9 08/09/2018 Appointment: María Elena Appiah WPtel: [address] [place] [address] ACUTE ILLNESS 08/09/2018 Appointment: María Elena Appiah WPtel: [address] [place] [address] NO SHOW 08/08/2018 Visit Diagnosis Plan: Anxiety disorder, unspecified Di scussion: Trial of doxepin 25mg at for sleep ICD-9 : 300.00 ICD-10 : F41.9 07/22/2018 Visit Diagnosis Plan: Tinea corporis Discussion: Nysta tin powder to bilateral breast folds BID for 2 weeks Need updated labs (Mag Lab order given) Will call with lab results ICD-9 : 110.5 ICD-10 : B35.4 07/22/2018 Visit Diagnosis Plan: Menopausal and female climacteri c states Discussion: Recommend increase Premarin dose to 1 1/2 tabs daily for one week Notify if symptoms persist or worsen ICD-9 : 627.2 ICD-10 : N95.1 07/22/2018 Appointment: María Elena Appiah WPtel: [phone] [facility] ACUTE ILLNESS 07/22/2018 Appointment: Td María Elena S. WPtel: [phone] [facility] [place] INJECTION 06/19/2018 Patient Education: Patient Medication [...] ICD-10 : L03.031 06/17/2018 Appointment: Kathleen Zuniga [address] [place] [address] ACUTE ILLNESS 06/17/2018 Patient Education: Patient Medication [...] ICD-10 : B02.9 05/16/2018 Appointment: Kathleen Zuniga [address] [place] [address] ACUTE ILLNESS 05/16/2018 Patient Education: Patient Medication [...] : L03.115 03/20/2018 Appointment: Kathleen Zuniga [address] [phone] FOLLOW UP 03/20/2018 Patient Education: Patient Medication [...] : L03.115 03/18/2018 Appointment: Kathleen Zuniga [address] [place], [place] [address] FOLLOW UP 03/18/2018 Patient Education: Patient Medication [...] : L03.115 03/15/2018 Appointment: Kathleen Zuniga [address] [phone] ACUTE ILLNESS 03/15/2018 Patient Education: Patient Medication [...] ICD-10 : J01.90 02/11/2018 Appointment: Kathleen Zuniga [address] [place] [address] ACUTE ILLNESS 02/11/2018 Patient Education: Patient Medication Summary Completed 02/11/2018 Appointment: María Elena Appiah WPtel: [phone] [id number] [place] INJECTION 02/01/2018 Patient Education: Patient Medication [...] ICD-10 : M51.16 01/30/2018 Appointment: Kathleen Zuniga Rose MaryJj [address] [place] [address] ACUTE ILLNESS 01/30/2018 Patient Education: Patient Medication [...] I10 12/18/2017 Appointment: María Elena Appiah WPtel: [facility]4 [facility]66[facility] Annual Well Visit 12/18/2017 Patient Education: Patient Medication Summary Completed 12/18/2017 Care Plan: Referral Order SNOMED-CT : [id number] Pending 12/18/2017 Appointment: María Elena Appiah WPtel: [phone] [phone] [place] INJECTION 12/10/2017 Patient Education: Patient Medication [...] ICD-10 : J01.90 12/07/2017 Appointment: Kathleen Zuniga [address] [place], [place] [id number] ACUTE ILLNESS 12/07/2017 Patient [...] : J01.00 10/08/2017 Appointment: Kathleen Zuniga 504 [facility] ACUTE ILLNESS 10/08/2017 Patient Education: Patient Medication Summary Completed 10/08/2017 Appointment: María Elena Appiah WPtel: [phone] [id number] [place] INJECTION 09/21/2017 Patient Education: Patient Medication Summary Completed 09/21/2017 Visit Diagnosis Plan: Major depressive disorder, singl [...] ICD-10 : F41.9 09/20/2017 Visit Diagnosis Plan: Cellulitis of left toe Discussio n: rocephin shot given at today's visit. patient instructed to come back tomorrow for additional shot. instructed to call or RTC if no improvement or worsening symptoms. ICD-9 : 681.10 ICD-10 : L03.032 09/20/2017 Appointment: Kathleen Zuniga 504 [facility] ACUTE ILLNESS 09/20/2017 Patient Education: Patient Medication [...] ICD-10 : L60.0 08/29/2017 Appointment: Kathleen Zuniga [address] [place] [address] OFFICE SURGERY 08/29/2017 Patient Education: Patient Medication Summary Completed 08/29/2017 Visit Diagnosis Plan: Actinic keratosis Discussion: Cr yotherapy as above ICD-9 : 702.0 ICD-10 : L57.0 08/01/2017 Appointment: María Elena Appiah WPtel: [address] [place] [address] OFFICE SURGERY 08/01/2017 Patient Education: Patient Medication Summary Completed 08/01/2017 Appointment: María Elena Appiah WPtel: [address] [place] [address] PATIENT THOUGHT APPOINTMENT WAS TOMORROW 07/26/17 CALLED 15 MINUTES BEFORE APPT TO SAY SHE DIDN'T HAVE ANYONE TO COVER HER BUSINESS AND WOULD NOT MAKE IT NO SHOW 07/25/2017 Visit Diagnosis Plan: Cellulitis of left toe Discussio n: Clindamycin and notify if worsening or persistis ICD-9 : 681.10 ICD-10 : L03.032 07/19/2017 Appointment: María Elena Appiah WPtel: [address] [place] [address] MEDICATION REVIEW 07/19/2017 Patient Education: Patient Medication Summary Completed 07/19/2017 Appointment: María Elena Appiah WPtel: [address] [place] [address] CANCELED 07/04/2017 Visit Diagnosis Plan: Generalized hyperhidrosis Discus ian: CBC, CMP, TSH, free T4 ordered to assess. will review labs. ICD-9 : 780.8 ICD-10 : R61 06/27/2017 Visit Diagnosis Plan: Chronic sinusitis, unspecified D iscussion: Referral sent to dr. albarado in [place] per patient request. patient has been treated multiple times for sinus infections with no recovery. patient was seen by dr sanchez in the past with no interventions. patient has deviated septum which may be affecting her sinuses. 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, including hip Discussion: Shave removal of above lesio n--sent to pathology ICD-9 : 216.7 ICD-10 : D23.72 01/24/2017 Appointment: María Elena [facility]el[facility] [phone] [facility] 01/23 confirmed ~sl OFFICE SURGERY 01/24/2017 Patient Education: Patient Medication Summary Completed 01/24/2017 Appointment: Loan Sánchez [address] [place], [place] [id number] 01/09 rescheduled~sl RESCHEDULED 01/15/2017 Visit Diagnosis Plan: [...] R60.0 12/13/2016 Appointment: María Elena Appiah WPtel: [address] [place], [place] [address] 12/12 confirmed ~sl MEDICATION REVIEW 12/13/2016 Patient Education: Patient Medication Summary Completed 12/13/2016 Appointment: María Elena Appiah WPtel: [address] [place], [place] [phone] [place] rescheduled for 12/13/16 at 11am RESCHEDULED 0 12/06/2016 Appointment: María Elena Appiah WPtel: [address] [place], [place] [phone] [place] CANCELED 11/23/2016 Patient Education: Patient Medication [...] 11/01/2016 Appointment: María Elena Appiah WPtel: [phone] [facility] [place] 10/31 lm `sl 11/01 lm`sl MEDICATION REVIEW 017 Patient Education: Patient Medication Summary Completed 11/01/2016 Referral: Canelo Overton WPtel: [phone] [id number] [place] Referral Initiated 10/30/2016 Visit Diagnosis Plan: [...] Z00.129 10/17/2016 Appointment: María Elena Appiah WPtel: [address] [place], [place] [phone] 10/16 confirmed ~sl PAP 10/17/2016 Patient Education: Patient Medication Summary Completed 10/17/2016 Care Plan: MAMMOGRAM SCREENING LOINC : 2 6347-5 Pending 10/17/2016 Visit Diagnosis Plan: Other seasonal allergic rhinitis Discussion: Decadron/Garamycin Nasal [place] Mix Too soon for steroid Retry zyrtec 10mg daily ICD-9 : 477.9 ICD-10 : J30.2 10/10/2016 Appointment: María Elena Appiah WPtel: [address] [place], [place] [phone] [place] FOLLOW UP 10/10/2016 Patient Education: Patient Medication Summary Completed 10/10/2016 Appointment: María Elena Appiah [facility]Ptel: [phone] [facility] [place] 10/02 reschedule `sl RESCHEDULED 10/02/2016 Visit Plan: See surgery for removal of n ew left arm lesion and right foot lesion Lyrica to use next month for left arm paresthesias Continue current meds Discussed sunscreen/sunblock combo 09/19/2016 Appointment: María Elena Appiah WPtel: [address] [place], [place] [phone] 09/18 confirmed ~sl FOLLOW UP 09/19/2016 Patient Education: Patient Medication Summary Completed 09/19/2016 Patient Education: Patient Medication Summary Completed 09/18/2016 Care Plan: MAMMOGRAM BOTH BREASTS LOINC : 60763-7 Pending 09/18/2016 Visit Plan: Discussed that needs [...] 08/24/2016 Appointment: María Elena Appiah WPtel: [address] [place] [address] ACUTE ILLNESS 08/24/2016 Patient Education: Patient Medication Summary Completed 08/24/2016 Patient Education: Patient Medication Summary Completed 08/23/2016 Care Plan: MAMMOGRAM SCREENING LOINC : 2 6347-5 Pending 08/23/2016 Visit Plan: Finish doxycycline Add Breo 100/25 1 p BID for 2 weeks If not improving within next 2 days will get CXR 08/16/2016 Appointment: María Elena Appiah WPtel: [address] [place], [place] [phone] ACUTE ILLNESS 08/16/2016 Patient Education: Patient Medication Summary Completed 08/16/2016 Visit Plan: Supportive care. Rest, Fluid s, Tylenol/Motrin prn fever or bodyaches. Notify if worsening symptoms. Doxycyline and Prednisone 08/10/2016 Appointment: María Elena Appiah WPtel: [address] [place], [place] [phone] 08/09 lm`sl....confirmed-sp FOLLOW UP 09/2015 Patient Education: Patient Medication Summary Completed 08/10/2016 Visit Plan: Saline nasal flushes prn. Ty lenol/Motrin prn headache. Notify if persists/symptoms worsening. Dexamethasone 8mg IM today May use coricedan and mucinex 08/02/2016 Appointment: María Elena Appiah WPtel: [address] [place] [address] ACUTE ILLNESS 08/02/2016 Patient Education: Patient Medication Summary Completed 08/02/2016 Visit Plan: Cryotherapy as above and lef t forearm lesion removal as above with 5-0 punch biopsy and sent to path Return in 10 days for suture removal 08/01/2016 Appointment: María Elena Appiah WPtel: [address] [place], [place] [address] 07/31 confirmed`~ OFFICE SURGERY 08/01/2016 Patient Education: Patient Medication Summary Completed 08/01/2016 Visit Plan: Stop clindamycin Check CBC, CMP, ESR now/STAT 07/27/2016 Appointment: María Elena Appiah WPtel: [address] [place] [address] ACUTE ILLNESS 07/27/2016 Patient Education: Patient Medication Summary Completed 07/27/2016 Visit Plan: Update lab and check ABIs to start with Will likely need cardiology evaluation to rule out PVD Clindamycin for 10 days Daily yogurt or probiotic Will return for removal of left arm lesions 07/20/2016 Appointment: María Elena Appiah WPtel: [address] [place], [place] [address] ACUTE ILLNESS 07/20/2016 Patient Education: Patient Medication Summary Completed 07/20/2016 Patient Education: Patient Medication Summary Completed 07/20/2016 Care Plan: MAMMOGRAM BOTH BREASTS LOINC : 50255-5 Pending 07/20/2016 Care Plan: US EXAM CHEST LOINC : 15117-3 Pending 07/20/2016 Visit Plan: Wound culture collected from left great toe Appearance is somewhat staph like Rx as above Wound cleanser and skin care reviewed May need to add oral antibiotic if sores do not heal or continue to reoccur 07/06/2016 Appointment: Loan Sánchez [address] [place] [address] ACUTE ILLNESS 07/06/2016 Patient Education: Patient Medication Summary Completed 07/06/2016 Appointment: María Elena Appiah WPtel: [address] [place] [address] [place] INJECTION 05/25/2016 Patient Education: Patient Medication Summary Completed 05/25/2016 Visit Plan: Saline nasal flushes prn. Ty lenol/Motrin prn headache. Notify if persists/symptoms worsening. Dexamethasone and Rocephin given 04/26/2016 Appointment: María Elena Appiah WPtel: [address] [place] [address] ACUTE ILLNESS 04/26/2016 Patient Education: Patient Medication Summary Completed 04/26/2016 Visit Plan: Check CBC, CMP, TSH, FreeT4, HbA1C, estradiol, lipids in AM 03/02/2016 Appointment: María Elena Appiah WPtel: [address] [place] [address] 03/01 lm~sl ACUTE ILLNESS 03/02/2016 Patient Education: Patient Medication Summary Completed 03/02/2016 Visit Plan: Exam is nearly normal Needs to be taking daily antihistamine Would prefer to use oral steroids instead of shot but patient insist that oral steroids cause horrible headaches for her Will given kenalog IM instead 02/09/2016 Appointment: Loan Sánchez [address] [place] [address] ACUTE ILLNESS 02/09/2016 Patient Education: Patient Medication Summary Completed 02/09/2016 Visit Plan: Culture urine Macrobid DC xa nax Trial of Ativan 1mg q HS 01/24/2016 Appointment: María Elena Appiah WPtel: [address] [place] [address] ACUTE ILLNESS 01/24/2016 Patient Education: Patient Medication Summary Completed 01/24/2016 Visit Plan: No steroid or rocephin injec tion warranted Can have oral prednisone Continue current home regimen Needs to follow up with Dr Sanchez if problems persist 12/23/2015 Appointment: Loan Sánchez [address] [place], [place] [phone] ACUTE ILLNESS 12/23/2015 Patient Education: Patient Medication Summary Completed 12/23/2015 Visit Plan: Saline nasal flushes prn. Ty lenol/Motrin prn headache. Notify if persists/symptoms worsening. Kenalog 40mg IM today 12/08/2015 Appointment: María Elena Appiah WPtel: [address] [place] [address] 12/06 confirmed~ ACUTE ILLNESS 12/08/2015 Patient Education: Patient Medication Summary Completed 12/08/2015 Appointment: María Elena Appiah WPtel: [address] [place] [address] ACUTE ILLNESS 11/18/2015 Patient Education: Patient Medication Summary Completed 10/11/2015 Appointment: María Elena Appiah WPtel: [address] [place] [address] [place] INJECTION 10/07/2015 Patient Education: Patient Medication Summary Completed 10/07/2015 Visit Plan: Check renal arterial doppler s and ECHO Change amlodopine to lotrel 5/20mg q HS Will need stress test as well Check CMP, uric acid, ESR 10/06/2015 Appointment: María Elena Appiah WPtel: [address] [place] [address] ACUTE ILLNESS 10/06/2015 Patient Education: Patient Medication Summary Completed 10/06/2015 Patient Education: [facility] [place] - Saving Auto[employer]j - Amlodipine Besylate - 18-64 - Dynamic Portal ID Completed 10/06/2015 Appointment: María Elena Appiah WPtel: [address] [place] [address] FOLLOW UP 09/22/2015 Visit Plan: Cephalexin 500 mg PO bid Mery ly topical Mupirocin to lesions on left lateral neck and face Follow-up in one week. Sooner if symptoms worsen 09/14/2015 Appointment: June Flores WPtel: [address] [place] [address] ACUTE ILLNESS 09/14/2015 Patient Education: Patient Medication Summary Completed 09/14/2015 Visit Plan: Change bystolic to bedtime d osing and amlodopine to morning dosing Cryotherapy as above to AKs 09/07/2015 Appointment: María Elena Appiah WPtel: [address] [place] [address] 09/06 appointment made and confirmed ~sl FOLLOW UP 09/07/2015 Patient Education: Patient Medication Summary Completed 09/07/2015 Visit Plan: Increase bystolic back to 20 mg daily but will split and take 10mg in AM and 10mg in PM Stress Reducers 08/18/2015 Appointment: María Elena Appiah WPtel: [address] [place] [address] 08/17/15 appt confirmed cn ACUTE ILLNESS 08/18 Patient Education: Patient Medication Summary Completed 08/18/2015 Appointment: María Elena Appiah WPtel: [address] [place] [address] BP CHECK 07/07/2015 Patient Education: Patient Medication Summary Completed 07/07/2015 Appointment: María Elena Appiah WPtel: [address] [place] [address] BP CHECK 06/24/2015 Patient Education: Patient Medication Summary Completed 06/24/2015 Appointment: María Elena Appiah WPtel: [address] [place] [address] BP CHECK 06/21/2015 Patient Education: Patient Medication Summary Completed 06/21/2015 Visit Plan: Lab discussed Continue curre nt meds and lifestyle modification Recheck lab in 6mos 06/16/2015 Appointment: María Elena Appiah WPtel: [address] [place] [address] 06/15 confirmed FOLLOW UP 06/16/2015 Patient Education: Patient Medication Summary Completed 06/16/2015 Patient Education: Patient Medication Summary Completed 06/15/2015 Visit Plan: Increase cymbalta to 60mg q HS Keep clonidine at current dose Recheck 2weeks Change xanax to klonopin 06/02/2015 Appointment: María Elena Appiah WPtel: [address] [place] [address] 06/02 FOLLOW UP 06/02/2015 Patient Education: Patient Medication Summary Completed 06/02/2015 Appointment: María Elena Appiah WPtel: [address] [place] [address] ACUTE ILLNESS 05/24/2015 Visit Plan: Increase clonidine to 0.2mg q HS Add cymbalta 30mg q HS Recheck 2weeks Stress Reducers Check fasting lab Discussed sleep study 05/20/2015 Appointment: María Elena Appiah WPtel: [address] [place] [address] ACUTE ILLNESS 05/20/2015 Patient Education: Patient Medication Summary Completed 05/20/2015 Patient Education: [facility] [place] - Saving [employer] - Cymbalta - 18-64 - Dynamic Portal ID Completed 05/20/2015 Appointment: María Elena Appiah WPtel: [address] [place] [address] BP CHECK 05/19/2015 Patient Education: Patient Medication Summary Completed 05/19/2015 Visit Plan: Topical Bactroban alternatin g with topical betamethasone Recheck 2weeks 05/10/2015 Appointment: María Elena Appiah WPtel: [address] [place] [address] 05/07 vm cn...05/07 appt confirmed OFFICE SURGER Y 05/10/2015 Patient Education: Patient Medication Summary Completed 05/10/2015 Referral: Patrick Chandler WPtel: [place] [facility] [address] Referral Initiated 05/04/2015 Visit Plan: Saline nasal flushes prn. Ty lenol/Motrin prn headache. Notify if persists/symptoms worsening. Depomedrol 40mg IM today 03/16/2015 Appointment: María Elena Appiah WPtel: [address] [place] [address] ACUTE ILLNESS 03/16/2015 Patient Education: Patient Medication Summary Completed 03/16/2015 Appointment: María Elena Appiah WPtel: [address] [place] [address] ER Follow UP 03/09/2015 Visit Plan: Cryotherapy to lesions as ab ove 10/27/2014 Appointment: María Elena Appiah WPtel: [address] [place] [address] OFFICE SURGERY 10/27/2014 Patient Education: Patient Medication Summary Completed 10/27/2014 Appointment: June Flores WPtel: [address] [place] [address] ACUTE ILLNESS 09/11/2014 Patient Education: Patient Medication Summary Completed 09/11/2014 Visit Plan: Lab discussed Lipitor 10mg d aily Coenzyme Q-10 400mg daily Vitamin D3 5000u daily Recheck lipids with LFTs in 3mos then fwup 08/31/2014 Appointment: María Elena Appiah WPtel: [address] [place] [address] 08/28 voicemail FOLLOW UP 08/31/2014 Patient Education: Patient Medication Summary Completed 08/31/2014 Appointment: María Elena Appiah WPtel: [address] [place] [address] [place] LAB 08/27/2014 Appointment: María Elena Appiah WPtel: [address] [place] [address] [place] LAB 08/27/2014 Patient Education: Patient Medication Summary Completed 08/27/2014 Appointment: María Elena Appiah WPtel: [address] [place] [address] ACUTE ILLNESS 07/23/2014 Appointment: María Elena Appiah WPtel: [address] [place], [place] [phone] ACUTE ILLNESS 07/21/2014 Patient Education: Patient Medication Summary Completed 07/21/2014 Visit Plan: Kenalog 40mg IM today Contin ue narendra and jazir Add Flonase 07/15/2014 Appointment: María Elena Appiah WPtel: [address] [place], [place] [phone] ACUTE ILLNESS 07/15/2014 Appointment: María Elena Appiah WPtel: [address] [place], [place] [phone] ACUTE ILLNESS 07/15/2014 Patient Education: Patient Medication Summary Completed 07/15/2014 Visit Plan: Will do metolazone 2.5mg prn with 6 potassium and see if causes as severe cramping Trial of of seroquel XR 50mg q PM with evening meal and let us know how works 05/18/2014 Appointment: María Elena Appiah WPtel: [address] [place], [place] [phone] 05/15 left message FOLLOW UP 05/18/2014 Patient Education: Patient Medication Summary Completed 05/18/2014 Appointment: María Elena Appiah WPtel: [address] [place], [place] [phone] LAB 05/14/2014 Patient Education: Patient Medication Summary Completed 05/14/2014 Appointment: María Elena Appiah WPtel: [address] [place], [place] [phone] [place] INJECTION 04/22/2014 Visit Plan: Rocephin and Kenalog today a nd finish abx given from urgent care 04/21/2014 Appointment: María Elena Appiah WPtel: [address] [place] [address] [place] INJECTION 04/21/2014 Patient Education: Patient Medication Summary Completed 04/21/2014 Appointment: June Flores WPtel: [address] [place] [address] ACUTE ILLNESS 03/04/2014 Patient Education: Patient Medication Summary Completed 03/04/2014 Appointment: María Elena Appiah WPtel: [address] [place] [address] INJECTION 02/27/2014 Patient Education: Patient Medication Summary Completed 02/27/2014 Visit Plan: Cryotherapy as above to all lesions Patient wants to try no meds for insomnia for a while and see how goes 01/13/2014 Appointment: María Elena Appiah WPtel: [address] [place] [address] OFFICE SURGERY 01/13/2014 Patient Education: Patient Medication Summary Completed 01/13/2014 Visit Plan: Stop Melatonin Stop Soma Tri al of trazadone 75mg q HS See ENT for possible tubes as has had chronic ETD and serous otitis media with numerous steroids 12/24/2013 Appointment: María Elena Appiah WPtel: [address] [place] [address] ACUTE ILLNESS 12/24/2013 Patient Education: Patient Medication Summary Completed 12/24/2013 Visit Plan: Saline nasal flushes prn. Ty lenol/Motrin prn headache. Notify if persists/symptoms worsening. 11/12/2013 Appointment: María Elena Appiah WPtel: [address] [place] [address] ACUTE ILLNESS 11/12/2013 Patient Education: Patient Medication Summary Completed 11/12/2013 Appointment: María Elena Appiah WPtel: [address] [place] [address] ACUTE ILLNESS 10/21/2013 Patient Education: Patient Medication Summary Completed 10/21/2013 Visit Plan: Sleep hygiene and sleep rout ine Melatonin 10mg q HS Support stockings and observe 09/22/2013 Appointment: María Elena Appiah WPtel: [address] [place] [address] ACUTE ILLNESS 09/22/2013 Patient Education: Patient Medication Summary Completed 09/22/2013 Appointment: June Flores WPtel: [address] [place] [address] ACUTE ILLNESS 08/27/2013 Patient Education: Patient Medication Summary Completed 08/27/2013 Visit Plan: Proceed with CT scan of head /neck Proceed with occipital nerve injections Butrans 20mcg patch weekly until can get into see Dr. Mcdonough for injections 08/04/2013 Appointment: María Elena Appiah WPtel: [address] [place] [address] FOLLOW UP 08/04/2013 Patient Education: Patient Medication Summary Completed 08/04/2013 Visit Plan: OMT done Daily neck stretche s, moist heat Increase Celebrex to 200mg BID Add flexeril 07/23/2013 Appointment: María Elena Appiah WPtel: [address] [place] [address] 07/22 voicemail FOLLOW UP 07/23/2013 Patient Education: Patient Medication Summary Completed 07/23/2013 Appointment: María Elena Appiah WPtel: [address] [place] [address] ACUTE ILLNESS 06/23/2013 Patient Education: Patient Medication Summary Completed 06/23/2013 Appointment: María Elena Appiah WPtel: [address] [place] [address] ACUTE ILLNESS 05/26/2013 Patient Education: Patient Medication Summary Completed 05/26/2013 Visit Plan: Decrease clonidine to 0.1mg TID If BP remains stable consider decreasing amlodopine Prednisone for 5 days BP check in 1mo 04/16/2013 Appointment: María Elena Appiah WPtel: [address] [place] [address] 04/14 pt called and confirmed appt FOLLOW UP 04/16/2013 Patient Education: Patient Medication Summary Completed 04/16/2013 Appointment: María Elena Appiah WPtel: [address] [place] [address] ACUTE ILLNESS 03/05/2013 Patient Education: Patient Medication Summary Completed 03/05/2013 Visit Plan: Pt has MARIA ELENA on with Dr. Mcdonough Continue Butrans patch Refill Hydrocodone early tomorrow 12/23/2012 Appointment: María Elena Appiah WPtel: [address] [place] [address] FOLLOW UP 12/23/2012 Patient Education: Patient Medication Summary Completed 12/23/2012 Appointment: Lashawn Eckert WPtel: [address] [place] [address] ACUTE ILLNESS 12/16/2012 Patient Education: Patient Medication Summary Completed 12/16/2012 Visit Plan: Proceed with updated MRI of LS spine Continue gabapentin and add soma and diclofenac Will likely need to go for another epidural 12/09/2012 Appointment: María Elena Appiah WPtel: [address] [place] [address] ACUTE ILLNESS 12/09/2012 Patient Education: Patient Medication Summary Completed 12/09/2012 Visit Plan: Injection as above Finish me drol dose pack Chiropracter this afternoon 12/04/2012 Appointment: María Elena Appiah WPtel: [address] [place] [address] ACUTE ILLNESS 12/04/2012 Patient Education: Patient Medication Summary Completed 12/04/2012 Appointment: Mary Tillman WPtel: [address] [place] [address] FOLLOW UP 11/22/2012 Patient Education: Patient Medication Summary Completed 11/22/2012 Appointment: María Elena Appiah WPtel: [address] [place] [address] ACUTE ILLNESS 11/21/2012 Patient Education: Patient Medication Summary Completed 11/21/2012 Appointment: María Elena Appiah WPtel: [address] [place] [address] BP CHECK 11/07/2012 Patient Education: Patient Medication [...] re-check. 10/29/2012 Appointment: Lashawn Eckert WPtel: [address] [place] [address] ACUTE ILLNESS 10/29/2012 Patient Education: Patient Medication Summary Completed 10/29/2012 Appointment: María Elena Appiah WPtel: [address] [place] [address] ACUTE ILLNESS 10/14/2012 Patient Education: Patient Medication Summary Completed 10/14/2012 Appointment: María Elena Appiah WPtel: [address] [place] [address] 09/27/2012 Patient Education: Patient Medication Summary Completed 09/27/2012 Appointment: María Elena Appiah WPtel: [address] [place] [address] ACUTE ILLNESS 09/25/2012 Patient Education: Patient Medication Summary Completed 09/25/2012 Appointment: María Elena Appiah WPtel: [address] [place] [address] BP CHECK 09/24/2012 Appointment: María Elena Appiah WPtel: [address] [place] [address] ACUTE ILLNESS 08/29/2012 Patient Education: Patient Medication Summary Completed 08/29/2012 Visit Plan: Cryotherapy as above See Karlos m for right ear lesion--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 ACUTE ILLNESS 05/06/2012 Patient Education: Patient Medication Summary Completed 05/06/2012 Visit Plan: Pt wants to hold on any furt her sleep medications 04/03/2012 Appointment: María Elena Appiah WPtel: [address] [place] [address] FOLLOW UP 04/03/2012 Patient Education: Patient Medication Summary Completed 04/03/2012 Appointment: María Elena Appiah WPtel: [address] [place] [address] FOLLOW UP 03/19/2012 Patient Education: Patient Medication Summary Completed 03/19/2012 Appointment: María Elena Appiah WPtel: [address] [place] [address] BP CHECK 02/22/2012 Patient Education: Patient Medication Summary Completed 02/22/2012 Appointment: María Elena Appiah WPtel: [address] [place] [address] BP CHECK 02/21/2012 Patient Education: Patient Medication Summary Completed 02/21/2012 Visit Plan: Doxycycline and bactroban fo r foot Supportive care on ankles and knees Add norvasc for BP 02/20/2012 Appointment: María Elena Appiah WPtel: [address] [place] [address] ER Follow UP 02/20/2012 Patient Education: Patient Medication Summary Completed 02/20/2012 Appointment: María Elena Appiah WPtel: [address] [place] [address] ACUTE ILLNESS 01/30/2012 Patient Education: Patient Medication Summary Completed 01/30/2012 Appointment: María Elena Appiahtel: [address] [place] [address] ACUTE ILLNESS 01/24/2012 Patient Education: Patient Medication Summary Completed 01/24/2012 Visit Plan: Daily back stretches, moist heat, Biofreeze prn OMT done 01/10/2012 Appointment: María Elena Appiah WPtel: [address] [place] [address] ACUTE ILLNESS 01/10/2012 Patient Education: Patient Medication Summary Completed 01/10/2012 Appointment: María Elena Appiah WPtel: [address] [place] [address] FOLLOW UP 12/11/2011 Patient Education: Patient Medication Summary Completed 12/11/2011 Appointment: María Elena Appiahtel: [address] [place] [address] ACUTE ILLNESS 11/09/2011 Patient Education: Patient Medication Summary Completed 11/09/2011 Appointment: María Elena Appiahtel: [address] [place] [address] ACUTE ILLNESS 09/13/2011 Patient Education: Patient Medication Summary Completed 09/13/2011 Visit Plan: Check CBC, TSH, Free T4, CMP , ESR, Vit D, B12 now Start Prednisone today 08/31/2011 Appointment: María Elena Appiahtel: [address] [place] [address] ACUTE ILLNESS 08/31/2011 Patient Education: Patient Medication Summary Completed 08/31/2011 Appointment: María Elena Appiah WPtel: [address] [place] [address] [place] INJECTION 07/20/2011 Patient Education: Patient Medication Summary Completed 07/20/2011 Visit Plan: Continue current meds Monite r BP Cont stretches from PT 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 07/06/2011 Appointment: María Elena Appiah WPtel: [address] [place], [place] [phone] [place] FOLLOW UP 07/06/2011 Patient Education: Patient Medication Summary Completed 07/06/2011 Appointment: María Elena Appiah WPtel: [address] [place], [place] [phone] BP CHECK 06/06/2011 Patient Education: Patient Medication Summary Completed 06/06/2011 Visit Plan: Add Bystolic at 2.5mg QAM Ad d Robaxin 750mg 2 po q HS BP check in 2wks 05/22/2011 Appointment: María Elena Appiah WPtel: [address] [place], [place] [phone] FOLLOW UP 05/22/2011 Patient Education: Patient Medication Summary Completed 05/22/2011 Appointment: María Elena Appiah WPtel: [address] [place], [place] [phone] ER Follow UP 05/09/2011 Patient Education: Patient Medication Summary Completed 05/09/2011 Appointment: María Elena Appiah WPtel: [address] [place], [place] [phone] [place] FOLLOW UP 02/22/2011 Visit Plan: Rx written for Hydrocodone 1 0/325mg #240 See Ortho 02/14/2011 Appointment: María Elena Appiah WPtel: [address] [place], [place] [phone] OMT 02/14/2011 Patient Education: Patient Medication Summary [...] work. 02/03/2011 Appointment: Lashawn Eckert WPtel: [address] [place] [address] ACUTE ILLNESS 02/03/2011 Patient Education: Patient Medication Summary Completed 02/03/2011 Visit Plan: OMT done Cont daily stretche s 01/31/2011 Appointment: María Elena Appaih WPtel: [address] [place] [address] ACUTE ILLNESS 01/31/2011 Patient Education: Patient Medication Summary Completed 01/31/2011 Visit Plan: Continue pain meds OMT done Proceed with PT No work this summer01/25/2011 Appointment: María Elena Appiah WPtel: [address] [place] [address] ACUTE ILLNESS 01/25/2011 Patient Education: Patient Medication Summary Completed 01/25/2011 Visit Plan: Start PT Long discussion abo ut getting pain meds from only and can only have max of 4grams of tylenol per day Change to Hydrocodone 10/325mg 1- 2 po TID prn pain--#180 called to Radha 01/18/2011 Appointment: María Elena Appiah WPtel: [address] [place] [address] FOLLOW UP 01/18/2011 Patient Education: Patient Medication Summary Completed 01/18/2011 Visit Plan: Daily back stretches, moist heat, Biofreeze prn 11/29/2010 Appointment: María Elena Appiah WPtel: [address] [place] [address] ER Follow UP 11/29/2010 Patient Education: Patient Medication Summary Completed 11/29/2010 Visit Plan: Saline nasal flushes prn. Ty lenol/Motrin prn headache. Notify if persists/symptoms worsening. Finish augmentin Add Medrol Dose Pack 10/10/2010 Appointment: María Elena Appiah WPtel: [address] [place], [place] [phone] ACUTE ILLNESS 10/10/2010 Patient Education: Patient Medication Summary Completed 10/10/2010 Visit Plan: Cryotherapy x3 to multiple l esions on both forearms 07/19/2010 Appointment: María Elena Appiah WPtel: [address] [place], [place] [phone] OFFICE SURGERY 07/19/2010 Patient Education: Patient Medication Summary Completed 07/19/2010 Appointment: María Elena Appiah WPtel: [address] [place], [place] [phone] [place] BP CHECK 07/06/2010 Patient Education: Patient Medication Summary Completed 07/06/2010 Appointment: María Elena Appiahtel: [address] [place], [place] [phone] [place] BP CHECK 06/30/2010 Patient Education: Patient Medication Summary Completed 06/30/2010 Appointment: María Elena Appiah WPtel: [address] [place], [place] [phone] [place] BP CHECK 06/20/2010 Patient Education: Patient Medication Summary Completed 06/20/2010 Visit Plan: Change Diovan to Exforge 160 /5mg QD OMT done to thoracics BP check in 2wks 06/07/2010 Appointment: María Elena Appiah WPtel: [address] [place], [place] [phone] FOLLOW UP 06/07/2010 Patient Education: Patient Medication Summary Completed 06/07/2010 Appointment: María Elena Appiah WPtel: [address] [place], [place] [phone] [place] BP CHECK 06/03/2010 Patient Education: Patient Medication Summary Completed 06/03/2010 Appointment: María Elena Appiah WPtel: [address] [place], [place] [phone] [place] BP CHECK 06/01/2010 Patient Education: Patient Medication Summary Completed 06/01/2010 Visit Plan: Irritated skin tags to left neck x2 excised at base with scissors and base cauterized 05/30/2010 Appointment: María Elena Appiah WPtel: [address] [place] [address] OFFICE SURGERY 05/30/2010 Patient Education: Patient Medication Summary Completed 05/30/2010 Visit Plan: Saline nasal flushes prn. Ty lenol/Motrin prn headache. Notify if persists/symptoms worsening. Restart Nasonex Has allergy testing set for May 25 04/27/2010 Appointment: María Elena Appiah WPtel: [address] [place] [address] ACUTE ILLNESS 04/27/2010 Patient Education: Patient Medication Summary Completed 04/27/2010 Visit Plan: Saline nasal flushes prn. Ty lenol/Motrin prn headache. Notify if persists/symptoms worsening. Omnaris BID plus injections 04/05/2010 Appointment: María Elena Appiah WPtel: [address] [place] [address] ACUTE ILLNESS 04/05/2010 Patient Education: Patient Medication Summary Completed 04/05/2010 Visit Plan: Saline nasal flushes prn. Ty lenol/Motrin prn headache. Notify if persists/symptoms worsening. 03/09/2010 Appointment: María Elena Appiah WPtel: [address] [place] [address] ACUTE ILLNESS 03/09/2010 Patient Education: Patient Medication Summary Completed 03/09/2010 Visit Plan: Cont Clonidine as is Cont Pr emarin Fwup with surgery as scheduled 03/03/2010 Appointment: María Elena Appiah WPtel: [address] [place] [address] FOLLOW UP 03/03/2010 Patient Education: Patient Medication Summary Completed 03/03/2010 Visit Plan: Check Pelvic US now Dukee tacho Sal C vs Hysterectomy 01/17/2010 Appointment: María Elena Appiah WPtel: [address] [place] [address] ACUTE ILLNESS 01/17/2010 Patient Education: Patient Medication Summary Completed 01/17/2010 Visit Plan: Check fasting lab and schedu le Mammogram 2gm Na Diet Trial of Ambien 10mg qhs Fwup pending lab results 12/27/2009 Appointment: María Elena Appiah WPtel: [phone] [id number] [place] ESTABLISHED PATIENT 12/27/2009 Patient Education: Patient Medication Summary Completed 12/27/2009 Referral: Canelo Overton WPtel: [address] [id number] [place] Referral Initiated Referral: Philipp Flores WPtel: [address] [id number] [place] Referral Appointment Requested Instructions Comment . [...]
--- OUTSIDE RECORDS SUMMARY | 2020-03-13 07:01 | XMS REPORT | CCD ---
Author Author Gale Appiah D.O. Organization [facility] Address [address] [place] [phone] Phone Care Team Providers Care Environmental Studies Department Chair Name Role Phone María Elena Appiah D.O., PP Unavailable CCM Unavailable Summary Purpose Interface Exchange Family History Family History data not found Social History Social History Element Codes Description Effective Dates Tobacco history SNOMED CT: 824803728 Never smoker 05/22/2011 Allergies, Adverse Reactions, Alerts [...] Instructions duloxetine 60 mg capsule,delayed release RxNorm: 072301 TAKE ONE CAPSULE BY MOUTH DAILY 09/11/2019 No Stop Date Active Lipitor 10 mg tablet RxNorm: 507134 TAKE ONE TABLET BY MOUTH AT BEDTIME 09/11/2019 No Stop Date Active lisinopril 20 mg tablet RxNorm: 119419 TAKE ONE TABLET BY MOUTH DAILY .... THIS REPLACE 10MG TABLETS 09/11/2019 No Stop Date Active triamterene 75 mg-hydrochlorothiazide 50 mg tablet RxNorm: 3 24848 TAKE ONE TABLET BY MOUTH DAILY 09/11/2019 No Stop Date Active allopurinol 300 mg tablet RxNorm: 840981 TAKE ONE TABLET BY LOPEZ TH DAILY 09/11/2019 No Stop Date Active celecoxib 200 mg capsule RxNorm: 719335 TAKE ONE CAPSUL E BY MOUTH TWICE A DAY NEEDED FOR PAIN 09/11/2019 No Stop Date Active clonidine HCl 0.1 mg tablet RxNorm: 218199 TAKE ONE TAB LET BY MOUTH FOUR TIMES A DAY 09/11/2019 No Stop Date Active doxepin 25 mg capsule RxNorm: 3156100 1 Capsule(s) Oral every night at bedtime as needed for sleep 08/21/2019 11/18/2019 Active hydrocodone 10 mg-acetaminophen 325 mg tablet RxNorm: 815523 1-2 Tablet(s) PO TID 08/12/2019 No Stop Date Active as needed for pa in - Previous quantity #240, will start dosing for #180 in April 2011 per Doctor Td. Medrol (Dustin) 4 mg tablets in a dose pack RxNorm: 651197 Tablet(s) Oral As Directed 07/21/2019 No Stop Date Active Premarin 1.25 mg tablet RxNorm: 645452 1 Tablet(s) Oral QD 07/02/20 19 03/28/2020 Active hydrocodone 10 mg-acetaminophen 325 mg tablet RxNorm: 587401 1-2 Tablet(s) PO TID 07/01/2019 08/11/2019 Inactive as needed for pa in - Previous quantity #240, will start dosing for #180 in April 2011 per Doctor Td. gabapentin 300 mg capsule RxNorm: 084737 1 Capsule(s) PO QHS 201809/24/2019 Active celecoxib 200 mg capsule RxNorm: 955048 1 Capsule(s) Or al two times a day as needed for pain 06/27/2019 06/27/2019 Inactive Singulair 10 mg tablet RxNorm: 993045 TAKE ONE TABLET BY MOUTH JOSÉ Y 06/24/2019 No Stop Date Active furosemide 40 mg tablet RxNorm: 773626 TAKE ONE TABLET BY MOUTH EVERY MORNING NEEDED FOR EDEMA . TAKE WITH POTASSIUM 06/24/2019 No Stop Date Active doxepin 25 mg capsule RxNorm: 3343428 TAKE ONE CAPSULE B Y MOUTH EVERY NIGHT AT BEDTIME NEEDED FOR SLEEP 06/24/2019 08/20/2019 Inactive lisinopril 20 mg tablet RxNorm: 026290 TAKE ONE TABLET BY MOUTH DAILY .... THIS REPLACE 10MG TABLETS 06/24/2019 09/10/2019 Inactive nystatin-triamcinolone 100,000 unit/g-0.1 % topical cream Rx Norm: 1241017 1 Application Topical two times a day 06/12/2019 06/19/2019 Inactive apply BID for 1 week nystatin-triamcinolone 100,000 unit/g-0.1 % topical cream Rx Norm: 2308348 1 Application Topical two times a day 06/12/2019 06/11/2019 Inactive apply BID for 1 week hydrocodone 10 mg-acetaminophen 325 mg tablet RxNorm: 340962 1-2 Tablet(s) PO QID as needed for pain MUST LAST 30 DAYS 05/28/2019 06/26/2019 Inactiv e (Response to an electronic controlled substance refill request - RxReferenceNumber: [id number]) baclofen 20 mg tablet RxNorm: 099832 1 Tablet(s) PO TID as needed for muscle spasm 05/19/2019 05/27/2019 Inactive gabapentin 300 mg capsule RxNorm: 654731 1 Capsule(s) PO QHS 201805/27/2019 Inactive lisinopril 20 mg tablet RxNorm: 274906 1 Tablet(s) PO Q D TAKE ONE TABLET BY MOUTH DAILY, REPLACES 10 MG DOSE 05/19/2019 06/23/2019 Inactive doxepin 25 mg capsule RxNorm: 0371874 TAKE ONE CAPSULE B Y MOUTH EVERY NIGHT AT BEDTIME NEEDED FOR SLEEP 05/16/2019 06/14/2019 Inactive lisinopril 20 mg tablet RxNorm: 725414 TAKE ONE TABLET BY MOUTH DAILY, REPLACES 10 MG DOSE 05/16/2019 05/18/2019 Inactive Singulair 10 mg tablet RxNorm: 835711 TAKE ONE TABLET BY MOUTH JOSÉ Y 05/16/2019 06/14/2019 Inactive gabapentin 300 mg capsule RxNorm: 619523 1 Capsule(s) PO QHS 201805/04/2019 Inactive estropipate 1.5 mg tablet RxNorm: 064756 1 Tablet(s) PO QD 05/05/2005/27/2019 Inactive estropipate 1.5 mg tablet RxNorm: 710516 1 Tablet(s) PO QD 05/05/2005/04/2019 Inactive gabapentin 300 mg capsule RxNorm: 027426 1 Capsule(s) PO QHS 201805/18/2019 Inactive hydrocodone 10 mg-acetaminophen 325 mg tablet RxNorm: 491104 1-2 Tablet(s) PO QID as needed for pain MUST LAST 30 DAYS 04/25/2019 05/24/2019 Inactiv e (Response to an electronic controlled substance refill request - RxReferenceNumber: [id number]) metoprolol tartrate 100 mg tablet RxNorm: 269415 TAKE O NE TABLET BY MOUTH TWICE A DAY 04/24/2019 06/22/2019 Inactive cyclobenzaprine 10 mg tablet RxNorm: 180500 TAKE ONE TA BLET BY MOUTH THREE TIMES A DAY NEEDED FOR MUSCLE SPASMS 04/24/2019 05/18/2019 Inactive Lyrica 75 mg capsule RxNorm: 967075 1 Capsule(s) PO QHS 03/25/2019 Inactive Klor-Con 8 mEq tablet,extended release RxNorm: 909087 T FARRUKH ONE TABLET BY MOUTH TWICE A DAY 03/21/2019 05/19/2019 Inactive duloxetine 60 mg capsule,delayed release RxNorm: 463166 TAKE ONE CAPSULE BY MOUTH DAILY 03/21/2019 05/19/2019 Inactive triamterene 75 mg-hydrochlorothiazide 50 mg tablet RxNorm: 3 74410 TAKE ONE TABLET BY MOUTH DAILY 03/21/2019 05/19/2019 Inactive Lipitor 10 mg tablet RxNorm: 690407 TAKE ONE TABLET BY MOUTH AT BEDTIME 03/21/2019 09/10/2019 Inactive clonidine HCl 0.1 mg tablet RxNorm: 671390 TAKE ONE TAB LET BY MOUTH FOUR TIMES A DAY 03/21/2019 05/19/2019 Inactive allopurinol 300 mg tablet RxNorm: 501277 TAKE ONE TABLET BY LOPEZ TH DAILY 03/21/2019 05/19/2019 Inactive hydrocodone 10 mg-acetaminophen 325 mg tablet RxNorm: 161241 1-2 Tablet(s) PO QID as needed for pain MUST LAST 30 DAYS 02/28/2019 03/29/2019 Inactiv e (Response to an electronic controlled substance refill request - RxReferenceNumber: [id number]) furosemide 40 mg tablet RxNorm: 221393 TAKE ONE TABLET BY MOUTH EVERY MORNING NEEDED FOR EDEMA . TAKE WITH POTASSIUM 02/21/2019 03/22/2019 Inactive cyclobenzaprine 10 mg tablet RxNorm: 872938 TAKE ONE TA BLET BY MOUTH THREE TIMES A DAY NEEDED FOR MUSCLE SPASMS 02/21/2019 04/21/2019 Inactive lisinopril 20 mg tablet RxNorm: 076963 TAKE ONE TABLET BY MOUTH DAILY, REPLACES 10 MG DOSE 02/21/2019 05/15/2019 Inactive doxepin 25 mg capsule RxNorm: 9464460 TAKE ONE CAPSULE B Y MOUTH EVERY NIGHT AT BEDTIME NEEDED FOR SLEEP 02/21/2019 05/15/2019 Inactive nystatin 100,000 unit/gram topical cream RxNorm: 991414 APPLY TO AFFECTED AREA(S) TWO TIMES A DAY 02/21/2019 03/22/2019 Inactive estradiol 1 mg tablet RxNorm: 715417 2 Tablet(s) PO QD replaces premarin 01/22/2019 05/04/2019 Inactive lisinopril 20 mg tablet RxNorm: 019573 TAKE ONE TABLET BY MOUTH DAILY, REPLACES 10 MG DOSE 01/20/2019 02/18/2019 Inactive cyclobenzaprine 10 mg tablet RxNorm: 541278 TAKE ONE TA BLET BY MOUTH THREE TIMES A DAY NEEDED FOR MUSCLE SPASMS 01/20/2019 02/18/2019 Inactive metoprolol tartrate 100 mg tablet RxNorm: 477948 TAKE O NE TABLET BY MOUTH TWICE A DAY 01/20/2019 02/18/2019 Inactive cyclobenzaprine 10 mg tablet RxNorm: 174988 TAKE ONE TA BLET BY MOUTH THREE TIMES A DAY NEEDED FOR MUSCLE SPASMS 12/19/2018 01/17/2019 Inactive lisinopril 20 mg tablet RxNorm: 062140 TAKE ONE TABLET BY MOUTH DAILY, REPLACES 10 MG DOSE 12/19/2018 01/17/2019 Inactive duloxetine 60 mg capsule,delayed release RxNorm: 751292 TAKE ONE CAPSULE BY MOUTH DAILY 12/19/2018 01/17/2019 Inactive Lipitor 10 mg tablet RxNorm: 897880 TAKE ONE TABLET BY MOUTH AT BEDTIME 12/19/2018 01/17/2019 Inactive cyclobenzaprine 10 mg tablet RxNorm: 431856 1 Tablet(s) PO TID as needed for muscle spasm 11/19/2018 12/18/2018 Inactive Singulair 10 mg tablet RxNorm: 309776 1 Tablet(s) PO QD 11/19/2018 Inactive lisinopril 20 mg tablet RxNorm: 255916 TAKE ONE TABLET BY MOUTH DAILY, REPLACES 10 MG DOSE 11/15/2018 12/18/2018 Inactive hydrocodone 10 mg-acetaminophen 325 mg tablet RxNorm: 739311 1-2 Tablet(s) PO QID as needed for pain MUST LAST 30 DAYS 11/13/2018 12/12/2018 Inactiv e (Response to an electronic controlled substance refill request - RxReferenceNumber: [id number]) nystatin 100,000 unit/gram topical cream RxNorm: 755311 APPLY TO AFFECTED AREA(S) TWO TIMES A DAY 10/23/2018 11/06/2018 Inactive lisinopril 20 mg tablet RxNorm: 632635 1 Tablet(s) PO QD replac es 10mg dose 10/18/2018 11/14/2018 Inactive hydrocodone 10 mg-acetaminophen 325 mg tablet RxNorm: 499455 1-2 Tablet(s) QID as needed for pain MUST LAST 30 DAYS 10/08/2018 11/06/2018 Inactive (Response to an electronic controlled substance refill request - RxReferenceNumber: [id number]) lisinopril 10 mg tablet RxNorm: 469840 1 Tablet(s) PO QD 10/03/2018 0 01/21/2019 Inactive Celebrex 200 mg capsule RxNorm: 027383 TAKE ONE CAPSULE BY MOUT H TWICE A DAY 09/30/2018 05/04/2019 Inactive cyclobenzaprine 10 mg tablet RxNorm: 412065 TAKE ONE TA BLET BY MOUTH THREE TIMES A DAY NEEDED FOR MUSCLE SPASMS 09/30/2018 11/18/2018 Inactive doxepin 25 mg capsule RxNorm: 2018939 TAKE ONE CAPSULE B Y MOUTH EVERY NIGHT AT BEDTIME NEEDED 09/05/2018 10/16/2018 Inactive omeprazole 40 mg capsule,delayed release RxNorm: 113167 TAKE ONE CAPSULE BY MOUTH DAILY 09/05/2018 01/21/2019 Inactive furosemide 40 mg tablet RxNorm: 591468 TAKE ONE TABLET BY MOUTH EVERY MORNING NEEDED FOR EDEMA . TAKE WITH POTASSIUM 09/05/2018 11/03/2018 Inactive phentermine 37.5 mg tablet RxNorm: 967971 1 Tablet(s) PO QAM 201701/21/2019 Inactive doxepin 25 mg capsule RxNorm: 7519611 1 Capsule(s) PO QH S as needed for sleep TAKE ONE CAPSULE BY MOUTH EVERY NIGHT AT BEDTIME NEEDED 08/27/2018 09/04/2018 Inactive Keflex 500 mg capsule RxNorm: 150246 1 Capsule(s) PO TID 08/09/2018 1 10/19/2017 Inactive Diflucan 100 mg tablet RxNorm: 476980 1 Tablet(s) PO QD 08/09/2018 Inactive Premarin 1.25 mg tablet RxNorm: 616764 2 Tablet(s) PO QD 08/09/2018 0 05/04/2019 Inactive Zofran ODT 4 mg disintegrating tablet RxNorm: 281289 1 Tablet(s) PO Q4H as needed for nausea 08/09/2018 01/21/2019 Inactive metoprolol tartrate 100 mg tablet RxNorm: 802093 TAKE O NE TABLET BY MOUTH TWICE A DAY 2018 10/04/2018 Inactive doxepin 25 mg capsule RxNorm: 2248091 TAKE ONE CAPSULE B Y MOUTH EVERY NIGHT AT BEDTIME NEEDED 2018 08/26/2018 Inactive cyclobenzaprine 10 mg tablet RxNorm: 233823 TAKE ONE TA BLET BY MOUTH THREE TIMES A DAY NEEDED FOR MUSCLE SPASMS 2018 09/29/2018 Inactive hydrocodone 10 mg-acetaminophen 325 mg tablet RxNorm: 708888 1-2 Tablet(s) QID as needed for pain MUST LAST 30 DAYS 07/29/2018 08/27/2018 Inactive (Response to an electronic controlled substance refill request - RxReferenceNumber: [id number]) nystatin 100,000 unit/gram topical powder RxNorm: 561770 Applic ation TOP BID 07/22/2018 08/04/2018 Inactive doxepin 25 mg capsule RxNorm: 1459084 1 Capsule(s) PO QHS as needed 07/22/2018 08/05/2018 Inactive triamterene 75 mg-hydrochlorothiazide 50 mg tablet RxNorm: 3 97460 TAKE ONE TABLET BY MOUTH DAILY 07/05/2018 10/02/2018 Inactive duloxetine 60 mg capsule,delayed release RxNorm: 902602 TAKE ONE CAPSULE BY MOUTH DAILY 07/05/2018 09/02/2018 Inactive Klor-Con 8 mEq tablet,extended release RxNorm: 880091 T FARRUKH ONE TABLET BY MOUTH TWICE A DAY 07/05/2018 10/02/2018 Inactive Lipitor 10 mg tablet RxNorm: 553716 TAKE ONE TABLET BY MOUTH AT BEDTIME 07/05/2018 09/02/2018 Inactive allopurinol 300 mg tablet RxNorm: 574351 TAKE ONE TABLET BY LOPEZ TH DAILY 07/05/2018 10/02/2018 Inactive clonidine HCl 0.1 mg tablet RxNorm: 682951 TAKE ONE TAB LET BY MOUTH FOUR TIMES A DAY 07/05/2018 10/02/2018 Inactive hydrocodone 10 mg-acetaminophen 325 mg tablet RxNorm: 730732 1-2 Tablet(s) QID as needed for pain MUST LAST 30 DAYS 06/28/2018 07/27/2018 Inactive (Response to an electronic controlled substance refill request - RxReferenceNumber: [id number]) MediHoney (calcium alginate-honey) 4" X 5" bandage RxNorm: 1 Application TOP QD 06/17/2018 06/26/2018 Inactive honey-hydrocolloid dressing 4" X 5" RxNorm: 1 Application TOP QD 06/17/2018 07/16/2018 Inactive furosemide 40 mg tablet RxNorm: 617522 TAKE ONE TABLET BY MOUTH EVERY MORNING NEEDED FOR EDEMA . TAKE WITH POTASSIUM 06/10/2018 07/09/2018 Inactive This is a refill request. hydrocodone 10 mg-acetaminophen 325 mg tablet RxNorm: 228738 1-2 Tablet(s) QID as needed for pain MUST LAST 30 DAYS 05/30/2018 06/27/2018 Inactive (Response to an electronic controlled substance refill request - RxReferenceNumber: [id number]) acyclovir 800 mg tablet RxNorm: 575224 1 Tablet(s) PO 5x day 201705/22/2018 Inactive Premarin 1.25 mg tablet RxNorm: 954375 1-2 Tablet(s) PO QD 05/15/2007/13/2018 Inactive cyclobenzaprine 10 mg tablet RxNorm: 281205 1 Tablet(s) PO TID as needed for muscle spasm 05/09/2018 05/08/2018 Inactive Medrol (Dustin) 4 mg tablets in a dose pack RxNorm: 884554 Tablet(s) PO As Directed 05/02/2018 06/16/2018 Inactive hydrocodone 10 mg-acetaminophen 325 mg tablet RxNorm: 055659 1-2 Tablet(s) QID as needed for pain MUST LAST 30 DAYS 04/30/2018 05/29/2018 Inactive (Response to an electronic controlled substance refill request - RxReferenceNumber: [id number]) duloxetine 60 mg capsule,delayed release RxNorm: 337039 TAKE ONE CAPSULE BY MOUTH DAILY 04/16/2018 05/15/2018 Inactive Celebrex 200 mg capsule RxNorm: 417082 TAKE ONE CAPSULE BY MOUT H TWICE A DAY 04/16/2018 06/14/2018 Inactive Singulair 10 mg tablet RxNorm: 323937 TAKE ONE TABLET BY MOUTH JOSÉ Y 04/16/2018 11/19/2018 Inactive Lipitor 10 mg tablet RxNorm: 934176 TAKE ONE TABLET BY MOUTH AT BEDTIME 04/16/2018 05/15/2018 Inactive hydrocodone 10 mg-acetaminophen 325 mg tablet RxNorm: 761451 1-2 Tablet(s) QID as needed for pain MUST LAST 30 DAYS 03/29/2018 04/27/2018 Inactive (Response to an electronic controlled substance refill request - RxReferenceNumber: [id number]) cyclobenzaprine 10 mg tablet RxNorm: 137098 1 Tablet(s) PO TID as needed for muscle spasm 03/18/2018 05/09/2018 Inactive omeprazole 40 mg capsule,delayed release RxNorm: 434293 1 Capsu le(s) PO QD 02/26/2018 08/24/2018 Inactive hydrocodone 10 mg-acetaminophen 325 mg tablet RxNorm: 562634 1-2 Tablet(s) QID as needed for pain MUST LAST 30 DAYS 02/26/2018 03/27/2018 Inactive (Response to an electronic controlled substance refill request - RxReferenceNumber: [id number]) metoprolol tartrate 100 mg tablet RxNorm: 584019 1 Tablet(s) PO BID 02/18/2018 08/05/2018 Inactive Lyrica 75 mg capsule RxNorm: 335190 1 Capsule(s) PO QHS 01/30/2018 Inactive phentermine 37.5 mg tablet RxNorm: 138443 1 Tablet(s) PO QAM 201706/16/2018 Inactive hydrocodone 10 mg-acetaminophen 325 mg tablet RxNorm: 064700 1-2 Tablet(s) QID as needed for pain MUST LAST 30 DAYS 01/29/2018 02/25/2018 Inactive (Response to an electronic controlled substance refill request - RxReferenceNumber: [id number]) Klor-Con 8 mEq tablet,extended release RxNorm: 189215 1 Tablet( s) PO BID 01/14/2018 07/04/2018 Inactive allopurinol 300 mg tablet RxNorm: 350377 1 Tablet(s) PO QD 01/15/2007/04/2018 Inactive Lipitor 10 mg tablet RxNorm: 651182 1 Tablet(s) PO QHS 01/14/201812/2017 Inactive triamterene 75 mg-hydrochlorothiazide 50 mg tablet RxNorm: 3 60578 1 Tablet(s) PO QD 01/14/2018 07/04/2018 Inactive hydrocodone 10 mg-acetaminophen 325 mg tablet RxNorm: 358876 1-2 Tablet(s) QID as needed for pain MUST LAST 30 DAYS 12/27/2017 01/25/2018 Inactive (Response to an electronic controlled substance refill request - RxReferenceNumber: [id number]) Onglyza 5 mg tablet RxNorm: 395156 1 Tablet(s) PO QD 12/18/201701/29 Inactive metformin 500 mg tablet RxNorm: 569030 1 Tablet(s) PO BID 12/11/2017 12/10/2017 Inactive metformin 500 mg tablet RxNorm: 960097 1 Tablet(s) PO BID 12/11/2017 12/17/2017 Inactive furosemide 40 mg tablet RxNorm: 929559 1 Tablet(s) PO Q AM prn edema--take with potassium 12/11/2017 06/08/2018 Inactive cyclobenzaprine 10 mg tablet RxNorm: 886698 1 Tablet(s) PO TID as needed for muscle spasm 12/11/2017 03/18/2018 Inactive hydrocodone 10 mg-acetaminophen 325 mg tablet RxNorm: 764672 1-2 Tablet(s) QID as needed for pain MUST LAST 30 DAYS 10/23/2017 11/21/2017 Inactive (Response to an electronic controlled substance refill request - RxReferenceNumber: [id number]) Lipitor 10 mg tablet RxNorm: 512428 1 Tablet(s) PO QHS 10/16/201703/2018 Inactive cyclobenzaprine 10 mg tablet RxNorm: 814059 1 Tablet(s) PO TID as needed for muscle spasm 10/09/2017 12/10/2017 Inactive hydroxyzine HCl 25 mg tablet RxNorm: 594972 1 Tablet(s) PO BID as needed for anxiety 09/20/2017 01/29/2018 Inactive Effexor XR 75 mg capsule,extended release RxNorm: 161496 1 Caps ule(s) PO QD 09/20/2017 01/29/2018 Inactive metoprolol tartrate 100 mg tablet RxNorm: 179891 1 Tablet(s) PO BID 08/20/2017 02/18/2018 Inactive baclofen 20 mg tablet RxNorm: 636120 1 Tablet(s) PO TID as needed for muscle spasm 08/20/2017 01/21/2019 Inactive clonidine HCl 0.1 mg tablet RxNorm: 988534 1 Tablet(s) PO QID 08/2005/16/2018 Inactive Seroquel 25 mg tablet RxNorm: 450754 1 Tablet(s) PO QHS 08/17/2017 Inactive Seroquel 25 mg tablet RxNorm: 049070 1 Tablet(s) PO QHS 08/17/2017 Inactive Diflucan 100 mg tablet RxNorm: 001609 TAKE ONE TABLET BY MOUTH JOSÉ Y 07/25/2017 08/07/2017 Inactive hydrocodone 10 mg-acetaminophen 325 mg tablet RxNorm: 287154 1-2 Tablet(s) QID as needed for pain MUST LAST 30 DAYS 07/19/2017 08/17/2017 Inactive (Response to an electronic controlled substance refill request - RxReferenceNumber: [id number]) clindamycin 300 mg capsule RxNorm: 175139 1 Capsule(s) PO TID 07/1907/28/2017 Inactive clotrimazole-betamethasone 1 %-0.05 % topical cream RxNorm: 799747 Application TOP BID to elbow rash 07/19/2017 06/16/2018 Inactive Singulair 10 mg tablet RxNorm: 086353 Tablet(s) TAKE ONE TABLET BY MOUTH DAILY 07/18/2017 04/13/2018 Inactive triamterene 75 mg-hydrochlorothiazide 50 mg tablet RxNorm: 3 28550 1 Tablet(s) PO QD 07/18/2017 01/14/2018 Inactive Celebrex 200 mg capsule RxNorm: 656998 Capsule(s) TAKE ONE CAPSULE BY MOUTH TWICE A DAY 07/18/2017 10/15/2017 Inactive hydrocodone 10 mg-acetaminophen 325 mg tablet RxNorm: 955508 1-2 Tablet(s) QID as needed for pain MUST LAST 30 DAYS 06/19/2017 07/18/2017 Inactive (Response to an electronic controlled substance refill request - RxReferenceNumber: [id number]) hydrocodone 10 mg-acetaminophen 325 mg tablet RxNorm: 092407 1-2 Tablet(s) QID as needed for pain MUST LAST 30 DAYS 06/19/2017 06/18/2017 Inactive (Response to an electronic controlled substance refill request - RxReferenceNumber: [id number]) baclofen 20 mg tablet RxNorm: 837988 1 Tablet(s) PO TID as needed for muscle spasm 06/18/2017 08/20/2017 Inactive Medrol (Dustin) 4 mg tablets in a dose pack RxNorm: 000203 Tablet(s) PO As Directed 06/05/2017 07/18/2017 Inactive omeprazole 40 mg capsule,delayed release RxNorm: 329764 1 Capsu le(s) PO QD 04/20/2017 10/16/2017 Inactive Premarin 1.25 mg tablet RxNorm: 749313 1-2 Tablet(s) PO QD 04/11/20 17 05/15/2018 Inactive duloxetine 60 mg capsule,delayed release RxNorm: 554363 1 Capsu le(s) PO QD 04/11/2017 09/19/2017 Inactive furosemide 40 mg tablet RxNorm: 255626 1 Tablet(s) PO Q AM prn edema--take with potassium 04/11/2017 12/11/2017 Inactive Klor-Con 8 mEq tablet,extended release RxNorm: 617684 1 Tablet( s) PO BID 04/11/2017 01/14/2018 Inactive Lipitor 10 mg tablet RxNorm: 890083 1 Tablet(s) PO QHS 04/11/201702/2018 Inactive amlodipine 5 mg-benazepril 20 mg capsule RxNorm: 413007 1 Capsu le(s) PO QD 04/11/2017 01/29/2018 Inactive allopurinol 300 mg tablet RxNorm: 762725 1 Tablet(s) PO QD 04/11/20 17 01/14/2018 Inactive clonidine HCl 0.1 mg tablet RxNorm: 027835 1 Tablet(s) PO QID 04/0508/19/2017 Inactive baclofen 20 mg tablet RxNorm: 762619 1 Tablet(s) PO TID as needed for muscle spasm 04/02/2017 06/18/2017 Inactive Premarin 1.25 mg tablet RxNorm: 396616 1-2 Tablet(s) PO QD 03/20/20 17 04/10/2017 Inactive hydrocodone 10 mg-acetaminophen 325 mg tablet RxNorm: 668362 1-2 Tablet(s) QID as needed for pain MUST LAST 30 DAYS 03/14/2017 01/21/2019 Inactive (Response to an electronic controlled substance refill request - RxReferenceNumber: [id number]) metoprolol tartrate 100 mg tablet RxNorm: 799339 1 Tablet(s) PO BID 02/12/2017 08/20/2017 Inactive hydrocodone 10 mg-acetaminophen 325 mg tablet RxNorm: 485880 1-2 Tablet(s) QID as needed for pain MUST LAST 30 DAYS 02/08/2017 03/09/2017 Inactive (Response to an electronic controlled substance refill request - [facility] [id number]) metoprolol tartrate 100 mg tablet RxNorm: 292097 TAKE O NE TABLET BY MOUTH TWICE A DAY 01/11/2017 02/12/2017 Inactive metoprolol tartrate 100 mg tablet RxNorm: 222852 1 Tablet(s) PO BID 12/18/2016 12/17/2016 Inactive metoprolol tartrate 100 mg tablet RxNorm: 851433 1 Tablet(s) PO BID 12/18/2016 01/10/2017 Inactive furosemide 40 mg tablet RxNorm: 365757 1 Tablet(s) PO Q AM prn edema--take with potassium 12/13/2016 02/10/2017 Inactive amitriptyline 100 mg tablet RxNorm: 050857 1 Tablet(s) PO QHS 11/2812/12/2016 Inactive baclofen 20 mg tablet RxNorm: 174676 1 Tablet(s) PO TID as needed for muscle spasm 11/14/2016 04/01/2017 Inactive triamterene 75 mg-hydrochlorothiazide 50 mg tablet RxNorm: 3 91147 1 Tablet(s) PO QD 11/14/2016 11/13/2016 Inactive metolazone 2.5 mg tablet RxNorm: 630174 TAKE ONE TABLET BY MOUTH DAILY NEEDED FOR EDEMA 11/14/2016 12/12/2016 Inactive triamterene 75 mg-hydrochlorothiazide 50 mg tablet RxNorm: 3 00440 1 Tablet(s) PO QD 11/14/2016 07/18/2017 Inactive amitriptyline 50 mg tablet RxNorm: 004103 TAKE ONE TABL ET BY MOUTH AT BEDTIME NEEDED FOR SLEEP 11/14/2016 11/27/2016 Inactive Cymbalta 60 mg capsule,delayed release RxNorm: 789333 1 Capsule (s) PO QHS 11/14/2016 12/12/2016 Inactive clonidine HCl 0.1 mg tablet RxNorm: 556850 1 Tablet(s) PO QID 11/1304/04/2017 Inactive amitriptyline 50 mg tablet RxNorm: 355608 1 Tablet(s) P O QHS as needed for sleep 11/01/2016 11/27/2016 Inactive duloxetine 60 mg capsule,delayed release RxNorm: 007721 TAKE ONE CAPSULE BY MOUTH DAILY 10/20/2016 01/17/2017 Inactive allopurinol 300 mg tablet RxNorm: 686403 TAKE ONE TABLET BY LOPEZ TH DAILY 10/20/2016 01/16/2017 Inactive Lyrica 75 mg capsule RxNorm: 111790 TAKE ONE CAPSULE BY MOUTH EVERY NIGHT AT BEDTIME 10/20/2016 12/10/2016 Inactive Klor-Con 8 mEq tablet,extended release RxNorm: 942199 T FARRUKH ONE TABLET BY MOUTH TWICE A DAY 10/20/2016 01/17/2017 Inactive Celebrex 200 mg capsule RxNorm: 441062 TAKE ONE CAPSULE BY MOUT H TWICE A DAY 10/20/2016 07/18/2017 Inactive Bystolic 10 mg tablet RxNorm: 429263 TAKE ONE TABLET BY MOUTH EVERY NIGHT AT BEDTIME 10/20/2016 12/17/2016 Inactive amlodipine 5 mg-benazepril 20 mg capsule RxNorm: 266459 TAKE ONE CAPSULE BY MOUTH EVERY NIGHT AT BEDTIME -- TO REPLACE AMLODOPINE 10/20/20162016 Inactive Lipitor 10 mg tablet RxNorm: 555075 TAKE ONE TABLET BY MOUTH EVERY NIGHT AT BEDTIME 10/20/2016 01/17/2017 Inactive alprazolam 0.5 mg tablet RxNorm: 202024 3 Tablet(s) PO QHS as needed for sleep/anxiety 09/20/2016 10/31/2016 Inactive Tamiflu 75 mg capsule RxNorm: 154334 1 Capsule(s) PO QD 09/19/2016 Inactive Lyrica 75 mg capsule RxNorm: 767590 1 Capsule(s) PO QHS 09/19/2016 Inactive prednisone 20 mg tablet RxNorm: 487046 1 Tablet(s) PO QD 08/10/2016 1 10/17/2015 Inactive doxycycline hyclate 100 mg capsule RxNorm: 2446437 1 Capsule(s) PO BID 08/10/2016 08/19/2016 Inactive Medrol (Dustin) 4 mg tablets in a dose pack RxNorm: 377614 Tablet(s) PO As Directed 07/31/2016 08/22/2016 Inactive Singulair 10 mg tablet RxNorm: 407479 TAKE ONE TABLET BY MOUTH JOSÉ Y 07/27/2016 07/18/2017 Inactive hydrocodone 10 mg-acetaminophen 325 mg tablet RxNorm: 057131 1-2 Tablet(s) QID as needed for pain MUST LAST 30 DAYS 07/26/2016 08/24/2016 Inactive (Response to an electronic controlled substance refill request - RxReferenceNumber: [id number]) alprazolam 0.5 mg tablet RxNorm: 709091 3 Tablet(s) PO QHS as needed for anxiety or sleep 07/26/2016 09/20/2016 Inactive clindamycin 300 mg capsule RxNorm: 748831 1 Capsule(s) PO TID 07/2007/29/2016 Inactive Diflucan 100 mg tablet RxNorm: 711982 1 Tablet(s) PO QD 07/20/2016 Inactive Levaquin 500 mg tablet RxNorm: 488515 1 Tablet(s) PO QD 07/17/2016 Inactive Levaquin 500 mg tablet RxNorm: 502815 1 Tablet(s) PO QD 07/10/2016 Inactive Levaquin 500 mg tablet RxNorm: 830188 1 Tablet(s) PO QD 07/10/2016 Inactive mupirocin 2 % topical ointment RxNorm: 212761 TOP Apply topically to affected areas twice daily 07/06/2016 09/18/2016 Inactive Singulair 10 mg tablet RxNorm: 062881 TAKE ONE TABLET BY MOUTH JOSÉ Y 06/21/2016 01/21/2019 Inactive alprazolam 0.5 mg tablet RxNorm: 736402 TAKE THREE TABL ETS BY MOUTH AT BEDTIME NEEDED FOR SLEEP OR STRESS 05/22/2016 06/20/2016 Inactive triamterene 75 mg-hydrochlorothiazide 50 mg tablet RxNorm: 3 48270 1 Tablet(s) PO QD 04/26/2016 10/21/2016 Inactive Premarin 1.25 mg tablet RxNorm: 106594 1-2 Tablet(s) PO QD 04/26/20 16 03/20/2017 Inactive Klor-Con 8 mEq tablet,extended release RxNorm: 072437 1 Tablet( s) PO BID 04/26/2016 10/19/2016 Inactive Celebrex 200 mg capsule RxNorm: 624132 1 Capsule(s) PO BID TAKE ONE CAPSULE BY MOUTH EVERY DAY 04/26/2016 10/19/2016 Inactive Lipitor 10 mg tablet RxNorm: 739015 1 Tablet(s) PO QHS 04/26/201605/2017 Inactive allopurinol 300 mg tablet RxNorm: 643785 1 Tablet(s) PO QD TAKE ONE TABLET BY MOUTH EVERY DAY 04/26/2016 10/19/2016 Inactive amlodipine 5 mg-benazepril 20 mg capsule RxNorm: 326213 1 Capsule(s) PO QHS replaces amlodopine 04/26/2016 10/19/2016 Inactive duloxetine 60 mg capsule,delayed release RxNorm: 140299 1 Capsu le(s) PO QD 04/26/2016 10/19/2016 Inactive Bystolic 10 mg tablet RxNorm: 375192 1 Tablet(s) PO QHS 04/26/2016 Inactive Singulair 10 mg tablet RxNorm: 203244 1 Tablet(s) PO QD TAKE ONE TABLET BY MOUTH DAILY 04/26/2016 06/20/2016 Inactive clonidine HCl 0.1 mg tablet RxNorm: 327792 1 Tablet(s) PO QID 04/2610/22/2016 Inactive hydrocodone 10 mg-acetaminophen 325 mg tablet RxNorm: 297809 1-2 Tablet(s) QID as needed for pain TAKE ONE TO TWO TABLETS BY MOUTH FOUR TIMES A DAY . MUST LAST 30 DAYS 03/31/2016 04/29/2016 Inactive (Response to an electronic controlled substance refill request - RxReferenceNumber: [id number]) Klor-Con 8 mEq tablet,extended release RxNorm: 048865 T FARRUHK ONE TABLET BY MOUTH TWICE A DAY 03/24/2016 04/22/2016 Inactive prednisone 20 mg tablet RxNorm: 593565 1 Tablet(s) PO QD 03/09/2016 0 03/08/2016 Inactive prednisone 20 mg tablet RxNorm: 301068 1 Tablet(s) PO QD 03/09/2016 0 03/13/2016 Inactive alprazolam 0.5 mg tablet RxNorm: 177368 3 Tablet(s) PO QHS as needed for sleep/stress 03/02/2016 01/21/2019 Inactive mupirocin 2 % topical ointment RxNorm: 669632 TOP twice daily to affected areas of face and neck 02/21/2016 04/25/2016 Inactive clonidine HCl 0.1 mg tablet RxNorm: 188928 TAKE ONE TAB LET BY MOUTH FOUR TIMES A DAY 02/15/2016 03/15/2016 Inactive clonidine HCl 0.1 mg tablet RxNorm: 048832 1 Tablet(s) PO QID 02/1404/25/2016 Inactive Premarin 1.25 mg tablet RxNorm: 051916 1-2 Tablet(s) PO QD 02/15/20 16 03/15/2016 Inactive Klor-Con 8 mEq tablet,extended release RxNorm: 128203 T FARRUKH ONE TABLET BY MOUTH TWICE A DAY 02/15/2016 03/15/2016 Inactive potassium chloride ER 20 mEq tablet,extended release(part/cr yst) RxNorm: 534937 2 Tablet(s) PO BID 02/15/2016 03/15/2016 Inactive Macrobid 100 mg capsule RxNorm: 256336 1 Capsule(s) PO BID 01/24/20 16 01/30/2016 Inactive prednisone 20 mg tablet RxNorm: 841783 Take 3tabs PO QD x 2 days, then 2 tabs PO QD x 2 days, then 1 tab PO QD x 2 days, then 1/2 tab PO QDy x 2 days 12/23/2015 04/25/2016 Inactive Klor-Con 8 mEq tablet,extended release RxNorm: 915704 T FARRUKH ONE TABLET BY MOUTH TWICE A DAY 12/20/2015 02/14/2016 Inactive alprazolam 1 mg tablet RxNorm: 682714 1 1/2 Tablet(s) PO QHS 201501/23/2016 Inactive nystatin 100,000 unit/gram topical cream RxNorm: 916640 APPLY TO AFFECTED AREA(S) TWO TIMES A DAY 11/30/2015 12/14/2015 Inactive Singulair 10 mg tablet RxNorm: 128093 TAKE ONE TABLET BY MOUTH JOSÉ Y 11/18/2015 04/25/2016 Inactive allopurinol 300 mg tablet RxNorm: 476089 1 Tablet(s) PO QD TAKE ONE TABLET BY MOUTH EVERY DAY 10/26/2015 04/22/2016 Inactive Singulair 10 mg tablet RxNorm: 403145 TAKE ONE TABLET BY MOUTH JOSÉ Y 10/26/2015 11/17/2015 Inactive duloxetine 60 mg capsule,delayed release RxNorm: 332139 1 Capsu le(s) PO QD 10/26/2015 04/22/2016 Inactive triamterene 75 mg-hydrochlorothiazide 50 mg tablet RxNorm: 3 78989 1 Tablet(s) PO QD 10/26/2015 11/14/2016 Inactive potassium chloride ER 20 mEq tablet,extended release(part/cr yst) RxNorm: 679086 2 Tablet(s) PO BID 10/26/2015 02/14/2016 Inactive Lipitor 10 mg tablet RxNorm: 588373 1 Tablet(s) PO QHS 10/26/2015 Inactive amlodipine 5 mg-benazepril 20 mg capsule RxNorm: 029206 1 Capsule(s) PO QHS replaces amlodopine 10/26/2015 04/22/2016 Inactive Bystolic 10 mg tablet RxNorm: 301766 1 Tablet(s) PO QHS 10/26/2015 Inactive amlodipine 5 mg-benazepril 20 mg capsule RxNorm: 858475 1 Capsule(s) PO QHS replaces amlodopine 10/06/2015 10/25/2015 Inactive amlodipine 5 mg tablet RxNorm: 086900 1 Tablet(s) PO QHS 09/30/2015 0 04/25/2016 Inactive metolazone 2.5 mg tablet RxNorm: 847792 TAKE ONE TABLET BY MOUTH DAILY NEEDED FOR EDEMA 09/30/2015 01/21/2019 Inactive duloxetine 60 mg capsule,delayed release RxNorm: 488718 1 Capsu le(s) PO QD 09/30/2015 10/25/2015 Inactive cephalexin 500 mg capsule RxNorm: 324469 1 Capsule(s) PO BID 201509/23/2015 Inactive mupirocin 2 % topical ointment RxNorm: 167122 TOP twice daily to affected areas of face and neck 09/14/2015 02/20/2016 Inactive baclofen 20 mg tablet RxNorm: 579303 1 Tablet(s) PO TID as needed for muscle spasm 09/01/2015 11/14/2016 Inactive clonidine HCl 0.1 mg tablet RxNorm: 740513 1 Tablet(s) PO QID 09/0102/14/2016 Inactive alprazolam 1 mg tablet RxNorm: 941612 1 1/2 Tablet(s) PO QHS 201409/09/2015 Inactive baclofen 20 mg tablet RxNorm: 696859 1 Tablet(s) PO TID as needed for muscle spasm 07/23/2015 09/01/2015 Inactive omeprazole 40 mg capsule,delayed release RxNorm: 477230 1 Capsu le(s) PO QD 07/23/2015 04/25/2016 Inactive alprazolam 1 mg tablet RxNorm: 878273 1 1/2 Tablet(s) PO QHS 201408/10/2015 Inactive Bystolic 10 mg tablet RxNorm: 431685 1 Tablet(s) PO BID 06/24/2015 Inactive allopurinol 300 mg tablet RxNorm: 522439 1 Tablet(s) PO QD TAKE ONE TABLET BY MOUTH EVERY DAY 06/23/2015 10/20/2015 Inactive alprazolam 1 mg tablet RxNorm: 894679 1 1/2 Tablet(s) PO QHS 201407/06/2015 Inactive clonidine HCl 0.1 mg tablet RxNorm: 591989 1 Tablet(s) PO QID 06/0209/01/2015 Inactive clonidine HCl 0.1 mg tablet RxNorm: 845409 1 Tablet(s) PO QID 06/0206/01/2015 Inactive Cymbalta 60 mg capsule,delayed release RxNorm: 200488 1 Capsule (s) PO QHS 06/02/2015 08/30/2015 Inactive Cymbalta 60 mg capsule,delayed release RxNorm: 657610 1 Capsule (s) PO QHS 06/02/2015 06/01/2015 Inactive clonidine HCl 0.1 mg tablet RxNorm: 531923 1 Tablet(s) PO TID 05/3106/01/2015 Inactive replaces 0.2mg dose metolazone 2.5 mg tablet RxNorm: 251748 TAKE ONE TABLET BY MOUTH DAILY NEEDED FOR EDEMA 05/21/2015 06/19/2015 Inactive Singulair 10 mg tablet RxNorm: 613665 TAKE ONE TABLET BY MOUTH JOSÉ Y 05/21/2015 10/17/2015 Inactive Cymbalta 30 mg capsule,delayed release RxNorm: 623762 1 Capsule (s) PO QHS 05/20/2015 11/14/2016 Inactive betamethasone valerate 0.1 % topical cream RxNorm: 651193 Appli cation TOP BID 05/10/2015 04/25/2016 Inactive Bactroban 2 % topical ointment RxNorm: 531039 Application TOP BID 0 05/10/2015 06/20/2015 Inactive baclofen 20 mg tablet RxNorm: 011454 1 Tablet(s) PO TID as needed 0 04/26/2015 07/23/2015 Inactive Lipitor 10 mg tablet RxNorm: 535540 1 Tablet(s) PO QHS 04/26/201508/2016 Inactive clonidine HCl 0.1 mg tablet RxNorm: 019561 1 Tablet(s) PO TID 04/2605/30/2015 Inactive replaces 0.2mg dose Klor-Con 8 mEq tablet,extended release RxNorm: 306277 1 Tablet( s) PO BID 04/26/2015 04/25/2016 Inactive metolazone 2.5 mg tablet RxNorm: 688223 1 Tablet(s) PO QD as ne eded for edema 04/26/2015 04/25/2015 Inactive triamterene 75 mg-hydrochlorothiazide 50 mg tablet RxNorm: 3 55245 1 Tablet(s) PO QD 04/26/2015 10/22/2015 Inactive Premarin 1.25 mg tablet RxNorm: 641066 1-2 Tablet(s) PO QD 04/26/20 15 10/22/2015 Inactive Bystolic 10 mg tablet RxNorm: 388408 1 Tablet(s) PO QAM TAKE ONE TABLET BY MOUTH EVERY MORNING 04/23/2015 06/23/2015 Inactive clonidine HCl 0.1 mg tablet RxNorm: 698186 1 Tablet(s) PO TID 03/2304/25/2015 Inactive replaces 0.2mg dose nystatin 100,000 unit/gram topical cream RxNorm: 193461 Applica tion TOP BID 03/23/2015 06/20/2015 Inactive baclofen 20 mg tablet RxNorm: 988416 1 Tablet(s) PO TID as needed 0 03/23/2015 04/25/2015 Inactive Premarin 1.25 mg tablet RxNorm: 497974 1-2 Tablet(s) PO QD 03/23/20 15 04/25/2015 Inactive Klor-Con 8 mEq tablet,extended release RxNorm: 068417 1 Tablet( s) PO BID 03/23/2015 04/25/2015 Inactive cefdinir 300 mg capsule RxNorm: 968496 2 Capsule(s) PO QD 03/16/2015 03/25/2015 Inactive baclofen 20 mg tablet RxNorm: 384351 1 Tablet(s) PO TID as needed 0 03/02/2015 03/22/2015 Inactive allopurinol 300 mg tablet RxNorm: 307158 1 Tablet(s) PO QD TAKE ONE TABLET BY MOUTH EVERY DAY 02/22/2015 05/22/2015 Inactive Klor-Con M20 mEq tablet,extended release RxNorm: 963264 2 Tablet(s) PO BID to use with lasix 02/22/2015 06/20/2015 Inactive clonidine HCl 0.1 mg tablet RxNorm: 620883 1 Tablet(s) PO TID 02/1903/22/2015 Inactive replaces 0.2mg dose Lipitor 10 mg tablet RxNorm: 566472 1 Tablet(s) PO QHS 01/20/201506/2015 Inactive Lipitor 10 mg tablet RxNorm: 277819 1 Tablet(s) PO QHS 01/20/2015 Inactive Singulair 10 mg tablet RxNorm: 142263 1 Tablet(s) PO QD TAKE ONE TABLET BY MOUTH EVERY DAY 11/20/2014 05/18/2015 Inactive Lipitor 10 mg tablet RxNorm: 167152 1 Tablet(s) PO QHS 11/20/201408/2015 Inactive allopurinol 300 mg tablet RxNorm: 678741 1 Tablet(s) PO QD TAKE ONE TABLET BY MOUTH EVERY DAY 11/20/2014 02/16/2015 Inactive Bystolic 10 mg tablet RxNorm: 912272 1 Tablet(s) PO QAM TAKE ONE TABLET BY MOUTH EVERY MORNING 11/20/2014 04/22/2015 Inactive Klor-Con 8 mEq tablet,extended release RxNorm: 386921 1 Tablet( s) PO BID 11/20/2014 02/17/2015 Inactive baclofen 20 mg tablet RxNorm: 789918 1 Tablet(s) PO TID as needed 0 11/20/2014 01/21/2019 Inactive baclofen 20 mg tablet RxNorm: 368595 1 Tablet(s) PO TID as needed 0 10/27/2014 11/19/2014 Inactive baclofen 20 mg tablet RxNorm: 844834 1 Tablet(s) PO TID as needed 0 10/26/2014 03/01/2015 Inactive allopurinol 300 mg tablet RxNorm: 212328 1 Tablet(s) PO QD TAKE ONE TABLET BY MOUTH EVERY DAY 10/26/2014 11/20/2014 Inactive Bystolic 10 mg tablet RxNorm: 258345 1 Tablet(s) PO QAM TAKE ONE TABLET BY MOUTH EVERY MORNING 10/26/2014 11/20/2014 Inactive clonidine HCl 0.1 mg tablet RxNorm: 319661 1 Tablet(s) PO TID 09/2805/27/2019 Inactive replaces 0.2mg dose clonidine HCl 0.1 mg tablet RxNorm: 825479 1 Tablet(s) PO TID 09/2802/18/2015 Inactive replaces 0.2mg dose baclofen 20 mg tablet RxNorm: 715932 1 Tablet(s) PO TID as needed 1 11/01/2013 08/30/2014 Inactive Lipitor 10 mg tablet RxNorm: 983370 1 Tablet(s) PO QHS 08/31/2014 Inactive baclofen 20 mg tablet RxNorm: 587670 1 Tablet(s) PO TID as needed 1 11/01/2013 10/26/2014 Inactive triamterene 75 mg-hydrochlorothiazide 50 mg tablet RxNorm: 3 85114 1 Tablet(s) PO QD 08/31/2014 02/26/2015 Inactive Klor-Con 8 mEq tablet,extended release RxNorm: 383936 1 Tablet( s) PO BID 08/31/2014 11/20/2014 Inactive baclofen 20 mg tablet RxNorm: 825727 1 Tablet(s) PO TID as needed 1 09/30/2013 10/25/2014 Inactive baclofen 20 mg tablet RxNorm: 163819 1 Tablet(s) PO TID as needed 1 09/30/2013 08/31/2014 Inactive omeprazole 40 mg capsule,delayed release RxNorm: 517685 1 Capsu le(s) PO QD 07/21/2014 07/23/2015 Inactive Flonase 50 mcg/actuation nasal spray,suspension RxNorm: 8963 23 1 [place] NASAL BID 07/15/2014 04/09/2017 Inactive hydrocodone 10 mg-acetaminophen 325 mg tablet RxNorm: 486427 1-2 Tablet(s) QID as needed for pain TAKE ONE TO TWO TABLETS BY MOUTH FOUR TIMES A DAY . MUST LAST 30 DAYS 06/30/2014 07/27/2014 Inactive (Response to an electronic controlled substance refill request - RxReferenceNumber: [id number]) baclofen 20 mg tablet RxNorm: 812208 1 Tablet(s) PO TID as needed 1 07/31/2014 Inactive Singulair 10 mg tablet RxNorm: 510734 1 Tablet(s) PO QD TAKE ONE TABLET BY MOUTH EVERY DAY 05/25/2014 11/20/2014 Inactive Bystolic 10 mg tablet RxNorm: 992895 TAKE ONE TABLET BY MOUTH E VERY MORNING 05/25/2014 09/21/2014 Inactive allopurinol 300 mg tablet RxNorm: 196802 1 Tablet(s) PO QD TAKE ONE TABLET BY MOUTH EVERY DAY 05/25/2014 10/21/2014 Inactive baclofen 20 mg tablet RxNorm: 754458 1 Tablet(s) PO TID as needed 0 05/25/2014 06/29/2014 Inactive allopurinol 300 mg tablet RxNorm: 120309 TAKE ONE TABLET BY LOPEZ TH EVERY DAY 05/25/2014 09/21/2014 Inactive Singulair 10 mg tablet RxNorm: 593319 1 Tablet(s) PO QD TAKE ONE TABLET BY MOUTH EVERY DAY 05/25/2014 05/24/2014 Inactive Bystolic 10 mg tablet RxNorm: 814510 1 Tablet(s) PO QAM TAKE ONE TABLET BY MOUTH EVERY MORNING 05/25/2014 10/21/2014 Inactive metolazone 2.5 mg tablet RxNorm: 836128 1 Tablet(s) PO QD as ne eded for edema 05/18/2014 04/25/2015 Inactive Lasix 40 mg tablet RxNorm: 964733 1 Tablet(s) PO RAZA ramirez take potassium supplementation with this medication 05/14/2014 05/17/2014 Inactive hydrocodone 10 mg-acetaminophen 325 mg tablet RxNorm: 899058 1-2 Tablet(s) QID as needed for pain TAKE ONE TO TWO TABLETS BY MOUTH FOUR TIMES A DAY . MUST LAST 30 DAYS 05/07/2014 06/05/2014 Inactive (Response to an electronic controlled substance refill request - RxReferenceNumber: [id number]) alprazolam 0.5 mg tablet RxNorm: 837248 TAKE ONE TABLET BY MOUTH TWICE A DAY , MUST LAST 30 DAYS 05/07/2014 05/22/2016 Inactive (Response to a n electronic controlled substance refill request - RxReferenceNumber: [id number]) diclofenac sodium 75 mg tablet,delayed release RxNorm: 60901 6 1 Tablet(s) PO BID for pain 04/24/2014 07/20/2014 Inactive Celebrex 200 mg capsule RxNorm: 422753 TAKE ONE CAPSULE BY MOUT H EVERY DAY 04/24/2014 07/20/2014 Inactive alprazolam 0.5 mg tablet RxNorm: 286579 TAKE ONE TABLET BY MOUTH TWICE A DAY , MUST LAST 30 DAYS 03/24/2014 04/22/2014 Inactive (Response to a n electronic controlled substance refill request - RxReferenceNumber: [id number]) diclofenac sodium 75 mg tablet,delayed release RxNorm: 93847 6 1 Tablet(s) PO BID for pain 03/24/2014 04/24/2014 Inactive clonidine HCl 0.1 mg tablet RxNorm: 370002 1 Tablet(s) PO TID 03/2409/28/2014 Inactive replaces 0.2mg dose Klor-Con 8 mEq tablet,extended release RxNorm: 301941 1 Tablet( s) PO BID 02/26/2014 08/31/2014 Inactive diclofenac sodium 75 mg tablet,delayed release RxNorm: 25418 6 1 Tablet(s) PO BID for pain 02/25/2014 03/24/2014 Inactive hydrocodone 10 mg-acetaminophen 325 mg tablet RxNorm: 861274 1-2 Tablet(s) QID as needed for pain TAKE ONE TO TWO TABLETS BY MOUTH FOUR TIMES A DAY . MUST LAST 30 DAYS 02/25/2014 03/26/2014 Inactive (Response to an electronic controlled substance refill request - RxReferenceNumber: [id number]) alprazolam 0.5 mg tablet RxNorm: 641525 Tablet(s) PO BI D as needed for anxiety TAKE ONE TABLET BY MOUTH TWICE A DAY , MUST LAST 30 DAYS 02/25/2014 Inactive (Response to an electronic controlled [place] bstance refill request - RxReferenceNumber: [id number]) [AttnRPh: Saving apply/adjudicate RxGRP:SG20 RxBIN:[id number] RxPCN: ID#:[id number]] alprazolam 0.5 mg tablet RxNorm: 010808 Tablet(s) TAKE ONE TABLET BY MOUTH TWICE A DAY , MUST LAST 30 DAYS 01/27/2014 02/24/2014 Inactive (Respo nse to an electronic controlled substance refill request - RxReferenceNumber: [id number]) [AttnRPh: Saving apply/adjudicate RxGRP:SG20 RxBIN:[id number] RxPCN: ID#:[id number]] hydrocodone 10 mg-acetaminophen 325 mg tablet RxNorm: 541692 1-2 Tablet(s) QID as needed for pain TAKE ONE TO TWO TABLETS BY MOUTH FOUR TIMES A DAY . MUST LAST 30 DAYS 01/27/2014 02/24/2014 Inactive (Response to an electronic controlled substance refill request - RxReferenceNumber: [id number]) alprazolam 0.5 mg tablet RxNorm: 754411 TAKE ONE TABLET BY MOUTH TWICE A DAY , MUST LAST 30 DAYS 01/27/2014 01/26/2014 Inactive (Response to a n electronic controlled substance refill request - RxReferenceNumber: [id number]) Premarin 1.25 mg tablet RxNorm: 713539 1-2 Tablet(s) PO QD 01/28/20 14 07/25/2014 Inactive alprazolam 0.5 mg tablet RxNorm: 234437 TAKE ONE TABLET BY MOUTH TWICE A DAY , MUST LAST 30 DAYS 01/27/2014 01/27/2014 Inactive (Response to a n electronic controlled substance refill request - RxReferenceNumber: [id number]) hydrocodone 10 mg-acetaminophen 325 mg tablet RxNorm: 558498 TAKE ONE TO TWO TABLETS BY MOUTH FOUR TIMES A DAY . MUST LAST 30 DAYS 01/27/20142013 Inactive (Response to an electronic controlled [place] bstance refill request - RxReferenceNumber: [id number]) Celebrex 200 mg capsule RxNorm: 757543 1 Capsule(s) PO QD TAKE ONE CAPSULE BY MOUTH EVERY DAY 12/29/2013 04/27/2014 Inactive hydrocodone 10 mg-acetaminophen 325 mg tablet RxNorm: 865811 1-2 Tablet(s) PO QID as needed for severe pain 12/29/2013 01/27/2014 Inactive allopurinol 300 mg tablet RxNorm: 595294 1 Tablet(s) PO QD TAKE ONE TABLET BY MOUTH EVERY DAY 12/29/2013 05/24/2014 Inactive alprazolam 0.5 mg tablet RxNorm: 645372 TAKE ONE TABLET BY MOUTH TWICE A DAY , MUST LAST 30 DAYS 12/29/2013 01/27/2014 Inactive (Response to a n electronic controlled substance refill request - RxReferenceNumber: [id number]) Celebrex 200 mg capsule RxNorm: 851896 1 Capsule(s) PO QD TAKE ONE CAPSULE BY MOUTH EVERY DAY 12/29/2013 12/29/2013 Inactive Bystolic 10 mg tablet RxNorm: 848648 1 Tablet(s) PO QAM TAKE ONE TABLET BY MOUTH EVERY MORNING 12/29/2013 05/24/2014 Inactive Bystolic 10 mg tablet RxNorm: 981829 1 Tablet(s) PO QAM TAKE ONE TABLET BY MOUTH EVERY MORNING 12/29/2013 12/29/2013 Inactive Singulair 10 mg tablet RxNorm: 415810 1 Tablet(s) PO QD TAKE ONE TABLET BY MOUTH EVERY DAY 12/29/2013 05/25/2014 Inactive hydrocodone 10 mg-acetaminophen 325 mg tablet RxNorm: 184240 TAKE ONE TO TWO TABLETS BY MOUTH FOUR TIMES A DAY . MUST LAST 30 DAYS 12/29/20132013 Inactive (Response to an electronic controlled [place] bstance refill request - RxReferenceNumber: [id number]) Trazadone 75mg Tablet RxNorm: 1 Tablet(s) PO QHS as needed 03/23/2014 Inactive Trazadone 75mg Tablet RxNorm: 1 Tablet(s) PO QHS 12/24/20132014 Inactive Soma 350 mg tablet RxNorm: 038356 Tablet(s) PO TAKE ON E TABLET BY MOUTH THREE TIMES A DAY NEEDED FOR MUSCLE SPASMS. THIS MUST LAST 30 DAYS BETWEEN REFILLS. 12/10/2013 12/22/2013 Inactive (Appended: Cont rolled substance eRx refill - RxReferenceNumber: [id number]) diclofenac sodium 75 mg tablet,delayed release RxNorm: 61741 6 1 Tablet(s) PO BID for pain 12/10/2013 02/24/2014 Inactive allopurinol 300 mg tablet RxNorm: 277308 1 Tablet(s) PO QD 11/20/19 14 12/29/2013 Inactive alprazolam 0.5 mg tablet RxNorm: 401023 2 Tablet(s) PO BID 11/13/19 14 12/29/2013 Inactive prn clonidine 0.1 mg tablet RxNorm: 192315 1 Tablet(s) PO TID 11/12/2013 02/09/2014 Inactive replaces 0.2mg dose Klor-Con M20 mEq tablet,extended release RxNorm: 594717 2 Tablet(s) PO BID to use with lasix 11/12/2013 05/10/2014 Inactive Singulair 10 mg tablet RxNorm: 561114 1 Tablet(s) PO QD 11/12/2013 Inactive hydrocodone 10 mg-acetaminophen 325 mg tablet RxNorm: 036522 1-2 Tablet(s) PO QID as needed for severe pain 11/12/2013 12/28/2013 Inactive Bystolic 10 mg tablet RxNorm: 839924 1 Tablet(s) PO QAM 11/12/2013 Inactive Soma 350 mg tablet RxNorm: 129817 Tablet(s) PO TAKE ON E TABLET BY MOUTH THREE TIMES A DAY NEEDED FOR MUSCLE SPASMS. THIS MUST LAST 30 DAYS BETWEEN REFILLS. 10/13/2013 12/10/2013 Inactive (Appended: Cont rolled substance eRx refill - RxReferenceNumber: [id number]) hydrocodone 10 mg-acetaminophen 325 mg tablet RxNorm: 925380 1-2 Tablet(s) PO QID as needed for severe pain 10/03/2013 11/11/2013 Inactive diclofenac sodium 75 mg tablet,delayed release RxNorm: 15782 8 1 Tablet(s) PO BID for pain 09/11/2013 12/10/2013 Inactive alprazolam 0.5 mg tablet RxNorm: 228334 1 Tablet(s) PO BID May refill on 04/26/13 09/01/2013 10/30/2013 Inactive prn hydrocodone 10 mg-acetaminophen 325 mg tablet RxNorm: 830572 1-2 Tablet(s) PO QID as needed for severe pain 09/01/2013 10/02/2013 Inactive triamterene 75 mg-hydrochlorothiazide 50 mg tablet RxNorm: 3 48319 1 Tablet(s) PO QD 08/04/2013 08/31/2014 Inactive cyclobenzaprine 10 mg tablet RxNorm: 994726 1 Tablet(s) PO TID prn spasm 08/04/2013 08/13/2013 Inactive clonidine 0.1 mg tablet RxNorm: 875784 1 Tablet(s) PO TID 08/04/2013 11/11/2013 Inactive replaces 0.2mg dose cyclobenzaprine 10 mg tablet RxNorm: 824930 1 Tablet(s) PO TID prn spasm 07/23/2013 08/01/2013 Inactive hydrocodone 10 mg-acetaminophen 325 mg tablet RxNorm: 536546 2 1-2 Tablet(s) PO QID as needed for severe pain 06/09/2013 08/07/2013 Inactive Singulair 10 mg tablet RxNorm: 202871 1 Tablet(s) PO QD 05/29/2013 Inactive Klor-Con 8 mEq tablet,extended release RxNorm: 856957 1 Tablet( s) PO BID 05/29/2013 02/26/2014 Inactive allopurinol 300 mg tablet RxNorm: 397033 1 Tablet(s) PO QD 05/29/20 13 11/19/2013 Inactive Bystolic 10 mg tablet RxNorm: 796648 1 Tablet(s) PO QAM take one daily in the morning. 05/29/2013 11/11/2013 Inactive scopolamine 1.5 mg 72 hr Transderm Patch RxNorm: 586344 Application TD Q72H for motion sickness 05/26/2013 07/22/2013 Inactive Soma 350 mg tablet RxNorm: 458433 1 Tablet(s) PO TID as needed for spasm 05/19/2013 10/13/2013 Inactive diclofenac sodium 75 mg tablet,delayed release RxNorm: 61917 8 1 Tablet(s) PO BID for pain 05/14/2013 07/22/2013 Inactive allopurinol 300 mg tablet RxNorm: 553396 1 Tablet(s) PO QD 04/25/20 13 05/28/2013 Inactive alprazolam 0.5 mg tablet RxNorm: 636670 1 Tablet(s) PO BID May refill on 04/26/13 04/25/2013 06/23/2013 Inactive prn Celebrex 200 mg capsule RxNorm: 032042 1 Capsule(s) PO QD 04/16/2013 12/29/2013 Inactive alprazolam 0.5 mg tablet RxNorm: 330833 1 Tablet(s) PO BID May refill on 04/26/13 04/16/2013 04/24/2013 Inactive prn Soma 350 mg tablet RxNorm: 706709 1 Tablet(s) PO TID as needed for spasm 04/16/2013 No Stop Date Active Lasix 40 mg tablet RxNorm: 555448 1 Tablet(s) PO QAM s hould take potassium supplementation with this medication 04/16/2013 06/14/2013 Inactive clonidine 0.1 mg tablet RxNorm: 750322 1 Tablet(s) PO TID 04/16/2013 08/03/2013 Inactive replaces 0.2mg dose prednisone 20 mg tablet RxNorm: 066074 1 Tablet(s) PO BID 04/16/2013 04/20/2013 Inactive diclofenac sodium 75 mg tablet,delayed release RxNorm: 48101 8 1 Tablet(s) PO BID for pain 04/14/2013 05/13/2013 Inactive hydrocodone 10 mg-acetaminophen 325 mg tablet RxNorm: 930430 2 1-2 Tablet(s) PO QID as needed for severe pain 04/14/2013 No Stop Date Active Lasix 40 mg tablet RxNorm: 594457 1 Tablet(s) PO QAM s hould take potassium supplementation with this medication 03/31/2013 04/15/2013 Inactive Celebrex 200 mg capsule RxNorm: 113632 1 Capsule(s) PO QD 03/31/2013 04/15/2013 Inactive alprazolam 0.5 mg tablet RxNorm: 123696 1 Tablet(s) PO BID 03/28/20 13 04/15/2013 Inactive prn hydrocodone 10 mg-acetaminophen 325 mg tablet RxNorm: 510452 2 1-2 Tablet(s) PO QID as needed for severe pain 03/10/2013 No Stop Date Active metformin ER 500 mg 24 hr tablet,extended release RxNorm: 86 1018 1 Tablet(s) PO QD 03/06/2013 07/22/2013 Inactive clindamycin 300 mg capsule RxNorm: 859517 2 Capsule(s) PO TID 03/0503/14/2013 Inactive Zaroxolyn 2.5 mg tablet RxNorm: 861722 1 Tablet(s) PO QAM 03/05/2013 05/19/2015 Inactive amlodipine 10 mg tablet RxNorm: 194938 1 Tablet(s) PO QD 03/03/2013 0 05/25/2013 Inactive Norvasc 10 mg tablet RxNorm: 082372 1 Tablet(s) PO QD 02/28/201307/11 Inactive Celebrex 200 mg capsule RxNorm: 656748 1 Capsule(s) PO QD 02/28/2013 03/30/2013 Inactive diclofenac sodium 75 mg tablet,delayed release RxNorm: 16568 8 1 Tablet(s) PO BID for pain 02/14/2013 03/15/2013 Inactive Soma 350 mg tablet RxNorm: 183214 1 Tablet(s) PO TID as needed for spasm 02/14/2013 No Stop Date Active hydrocodone 10 mg-acetaminophen 325 mg tablet RxNorm: 065840 2 1-2 Tablet(s) PO QID as needed for severe pain 02/14/2013 No Stop Date Active Norvasc 10 mg tablet RxNorm: 286541 1 Tablet(s) PO QD 02/10/201302/09 Inactive Celebrex 200 mg capsule RxNorm: 934555 1 Capsule(s) PO QD 01/27/2013 01/26/2013 Inactive Premarin 1.25 mg tablet RxNorm: 387376 1-2 Tablet(s) PO QD 01/28/20 13 06/25/2013 Inactive alprazolam 0.5 mg tablet RxNorm: 123779 1 Tablet(s) PO BID 01/28/20 13 02/25/2013 Inactive prn amlodipine 5 mg tablet RxNorm: 591897 1 Tablet(s) PO QD 01/27/2013 Inactive Celebrex 200 mg capsule RxNorm: 258074 1 Capsule(s) PO QD 01/27/2013 02/27/2013 Inactive gabapentin 600 mg tablet RxNorm: 862680 1 Tablet(s) PO QHS 01/16/20 13 07/22/2013 Inactive Soma 350 mg tablet RxNorm: 900380 1 Tablet(s) PO TID as needed for spasm 01/15/2013 No Stop Date Active hydrocodone 10 mg-acetaminophen 325 mg tablet RxNorm: 816048 2 1-2 Tablet(s) PO QID as needed for severe pain 01/15/2013 No Stop Date Active Soma 350 mg tablet RxNorm: 756824 1 Tablet(s) PO TID as needed for spasm 01/13/2013 No Stop Date Active alprazolam 0.5 mg tablet RxNorm: 990684 1 Tablet(s) PO BID 12/31/19 13 01/26/2013 Inactive prn diclofenac sodium 75 mg tablet,delayed release RxNorm: 88749 8 1 Tablet(s) PO BID for pain 12/09/2012 01/07/2013 Inactive gabapentin 600 mg tablet RxNorm: 894521 1 Tablet(s) PO QHS 12/10/19 13 01/07/2013 Inactive hydrocodone 10 mg-acetaminophen 325 mg tablet RxNorm: 046849 2 1-2 Tablet(s) PO QID as needed for severe pain 12/02/2012 No Stop Date Active Levaquin 750 mg tablet RxNorm: 978339 1 Tablet(s) PO QD 11/21/2012 Inactive Singulair 10 mg tablet RxNorm: 711395 1 Tablet(s) PO QD 11/11/2012 Inactive clonidine 0.2 mg tablet RxNorm: 127680 1 Tablet(s) PO TID 11/11/2012 04/15/2013 Inactive alprazolam 0.5 mg tablet RxNorm: 916028 1 Tablet(s) PO BID 11/12/19 13 12/10/2012 Inactive prn Klor-Con 8 mEq tablet,extended release RxNorm: 347245 1 Tablet( s) PO BID 11/11/2012 03/04/2013 Inactive hydrocodone 10 mg-acetaminophen 325 mg tablet RxNorm: 858331 2 1-2 Tablet(s) PO QID as needed for severe pain 11/06/2012 No Stop Date Active alprazolam 0.5 mg tablet RxNorm: 476563 1 Tablet(s) PO BID 10/15/19 13 11/10/2012 Inactive prn hydrocodone-acetaminophen 10 mg-325 mg tablet RxNorm: 692546 2 1-2 Tablet(s) PO QID as needed for severe pain 10/10/2012 10/09/2012 Inactive allopurinol 300 mg tablet RxNorm: 394898 1 Tablet(s) PO QD 09/20/19 13 12/18/2012 Inactive alprazolam 0.5 mg tablet RxNorm: 678131 1 Tablet(s) PO BID 09/17/19 13 10/14/2012 Inactive prn hydrocodone-acetaminophen 10 mg-325 mg tablet RxNorm: 238848 2 1-2 Tablet(s) PO QID as needed for severe pain 08/22/2012 08/21/2012 Inactive Norvasc 10 mg tablet RxNorm: 444505 1 Tablet(s) PO QD 08/12/201201/10 Inactive Premarin 1.25 mg tablet RxNorm: 462284 1-2 Tablet(s) PO QD 07/30/20 12 12/26/2012 Inactive alprazolam 0.5 mg tablet RxNorm: 658582 1 Tablet(s) PO BID 07/29/20 12 08/27/2012 Inactive prn Klor-Con 8 mEq tablet,extended release RxNorm: 703171 1 Tablet( s) PO BID 07/29/2012 11/10/2012 Inactive hydrocodone-acetaminophen 10 mg-325 mg tablet RxNorm: 885531 2 1-2 Tablet(s) PO QID as needed for severe pain 07/29/2012 No Stop Date Active Premarin 1.25 mg tablet RxNorm: 278499 1-2 Tablet(s) PO QD 07/29/20 12 07/29/2012 Inactive clonidine 0.2 mg tablet RxNorm: 502947 1 Tablet(s) PO TID 07/29/2012 10/28/2012 Inactive ketorolac 10 mg tablet RxNorm: 656267 1 Tablet(s) PO QID prn mitul leonardche 07/18/2012 No Stop Date Active hydrocodone-acetaminophen 10 mg-325 mg tablet RxNorm: 384385 2 1-2 Tablet(s) PO QID as needed for severe pain 07/03/2012 No Stop Date Active amlodipine 5 mg tablet RxNorm: 310872 1 Tablet(s) PO QD 07/02/2012 Inactive allopurinol 300 mg tablet RxNorm: 809352 1 Tablet(s) PO QD 07/02/2009/19/2012 Inactive Celebrex 200 mg capsule RxNorm: 163404 1 Capsule(s) PO QD for j oint pain 06/26/2012 10/23/2012 Inactive diclofenac sodium 75 mg tablet,delayed release RxNorm: 74515 8 1 Tablet(s) PO BID for pain 06/19/2012 09/16/2012 Inactive hydrocodone-acetaminophen 10 mg-325 mg tablet RxNorm: 844911 2 1-2 Tablet(s) PO QID as needed for severe pain 06/10/2012 No Stop Date Active alprazolam 0.5 mg tablet RxNorm: 231586 1 Tablet(s) PO BID 06/03/20 12 07/02/2012 Inactive prn ketorolac 10 mg tablet RxNorm: 916126 1 Tablet(s) PO Q8H 05/27/2012 0 01/21/2019 Inactive as needed for headache hydrocodone-acetaminophen 10 mg-325 mg tablet RxNorm: 877374 2 1-2 Tablet(s) PO QID as needed for severe pain 05/15/2012 No Stop Date Active allopurinol 300 mg tablet RxNorm: 679186 1 Tablet(s) PO QD 05/14/2006/12/2012 Inactive allopurinol 300 mg tablet RxNorm: 987831 1 Tablet(s) PO QD 05/14/20 12 05/13/2012 Inactive amlodipine 5 mg tablet RxNorm: 114764 1 Tablet(s) PO QD 05/01/2012 Inactive amlodipine 5 mg Tab RxNorm: 369326 1 Tablet(s) PO QD 05/01/201204/30 Inactive Celebrex 200 mg capsule RxNorm: 372090 1 Capsule(s) PO QD for j oint pain 05/01/2012 06/25/2012 Inactive Singulair 10 mg tablet RxNorm: 283630 1 Tablet(s) PO QD 05/01/2012 Inactive alprazolam 0.5 mg tablet RxNorm: 192021 1 Tablet(s) PO BID 05/01/2005/30/2012 Inactive prn Celebrex 200 mg Cap RxNorm: 863335 1 Capsule(s) PO QD for joint radu n 05/01/2012 04/30/2012 Inactive hydrocodone-acetaminophen 10 mg-325 mg tablet RxNorm: 245051 2 1-2 Tablet(s) PO QID as needed for severe pain 04/19/2012 No Stop Date Active Lasix 40 mg tablet RxNorm: 089138 1 Tablet(s) PO RAZA alan ashley take potassium supplementation with this medication 04/05/2012 06/03/2012 Inactive alprazolam 0.5 mg Tab RxNorm: 158644 1 Tablet(s) PO BID 04/05/2012 Inactive prn hydrocodone-acetaminophen 10 mg-325 mg Tab RxNorm: 2006220 1-2 Tablet(s) PO QID as needed for severe pain 03/25/2012 03/24/2012 Inactive clonidine 0.2 mg Tab RxNorm: 747880 1 Tablet(s) PO TID 03/08/2012 Inactive alprazolam 0.5 mg Tab RxNorm: 212102 1 Tablet(s) PO BID 03/08/2012 Inactive prn Soma 350 mg tablet RxNorm: 203390 1 Tablet(s) PO TID for spasm 02/0903/18/2012 Inactive clonidine 0.2 mg tablet RxNorm: 648361 1 Tablet(s) PO TID 03/08/2012 07/28/2012 Inactive Celebrex 200 mg Cap RxNorm: 411385 1 Capsule(s) PO QD for joint radu n 03/01/2012 04/29/2012 Inactive amlodipine 5 mg Tab RxNorm: 516294 1 Tablet(s) PO QD 02/26/201202/24 Inactive amlodipine 5 mg Tab RxNorm: 520384 1 Tablet(s) PO QD 02/26/201204/25 Inactive Bactroban 2 % Ointment RxNorm: 492998 Application TOP QID to sores 02/23/2012 No Stop Date Active amlodipine 2.5 mg tablet RxNorm: 261696 1 Tablet(s) PO QHS 02/20/20 12 02/25/2012 Inactive doxycycline hyclate 100 mg Cap RxNorm: 1026796 1 Capsule(s) PO BID 02/20/2012 02/29/2012 Inactive hydrocodone-acetaminophen 10 mg-325 mg Tab RxNorm: 6005026 1-2 T ablet(s) PO QID 02/08/2012 No Stop Date Active alprazolam 0.5 mg Tab RxNorm: 920197 1 Tablet(s) PO BID 02/08/2012 Inactive prn Singulair 10 mg Tab RxNorm: 968646 1 Tablet(s) PO QD 02/08/201204/30 Inactive Soma 350 mg Tab RxNorm: 142721 1 Tablet(s) PO TID for spasm 012 03/07/2012 Inactive Soma 350 mg Tab RxNorm: 725982 1 Tablet(s) PO TID for spasm 012 02/05/2012 Inactive diclofenac sodium 75 mg tablet,delayed release RxNorm: 84579 8 1 Tablet(s) PO BID for pain 02/01/2012 03/18/2012 Inactive Celebrex 200 mg Cap RxNorm: 453859 1 Capsule(s) PO QD for joint radu n 01/30/2012 02/28/2012 Inactive Lasix 40 mg Tab RxNorm: 611158 1 Tablet(s) PO QAM 01/24/2012 03/18/20 12 Inactive potassium chloride ER 20 mEq tablet,extended release(part/cr yst) RxNorm: 965445 2 Tablet(s) PO BID 01/24/2012 02/22/2012 Inactive alprazolam 0.5 mg Tab RxNorm: 811080 1 Tablet(s) PO BID 01/11/2012 Inactive prn hydrocodone-acetaminophen 10 mg-325 mg Tab RxNorm: 4586998 1-2 T ablet(s) PO QID 01/11/2012 No Stop Date Active Ambien 10 mg Tab RxNorm: 298704 1 Tablet(s) PO QHS 01/11/2012 012 Inactive Klor-Con 8 mEq Tab RxNorm: 614145 1 Tablet(s) PO BID 01/11/201201/22 Inactive diclofenac sodium 75 mg Tab, Delayed Release RxNorm: 124454 1 Tablet(s) PO BID for pain 01/10/2012 01/31/2012 Inactive Ambien 10 mg Tab RxNorm: 578908 1 Tablet(s) PO QHS 12/11/2011 012 Inactive alprazolam 0.5 mg Tab RxNorm: 519667 1 Tablet(s) PO BID 12/11/2011 Inactive prn hydrocodone 10 mg-acetaminophen 325 mg tablet RxNorm: 893174 1-2 Tablet(s) PO TID 11/28/2011 No Stop Date Active as needed for pa in - Previous quantity #240, will start dosing for #180 in April 2011 per Doctor Td. Ambien 10 mg Tab RxNorm: 819965 1 Tablet(s) PO QHS 11/09/2011 012 Inactive alprazolam 0.5 mg Tab RxNorm: 556719 1 Tablet(s) PO BID 11/09/2011 Inactive prn hydrocodone-acetaminophen 10 mg-325 mg Tab RxNorm: 6162651 1-2 T ablet(s) PO TID 11/06/2011 No Stop Date Active as needed for pain - Previous quantity #240, will start dosing for #180 in April 2011 per Doctor Td. Singulair 10 mg Tab RxNorm: 258552 1 Tablet(s) PO QD 10/13/201110/12 Inactive Singulair 10 mg Tab RxNorm: 557482 1 Tablet(s) PO QD 10/13/201102/06 Inactive hydrocodone-acetaminophen 10 mg-325 mg Tab RxNorm: 0396997 1-2 T ablet(s) PO TID 10/10/2011 10/09/2011 Inactive as needed for pain - Previous quantity #240, will start dosing for #180 in April 2011 per Doctor Td. hydrocodone-acetaminophen 10 mg-325 mg Tab RxNorm: 0000757 1-2 T ablet(s) PO TID 10/09/2011 No Stop Date Active as needed for pain - Previous quantity #240, will start dosing for #180 in April 2011 per Doctor Td. Klor-Con 8 mEq Tab RxNorm: 973178 1 Tablet(s) PO BID 10/02/201101/09 Inactive triamterene 75 mg-hydrochlorothiazide 50 mg tablet RxNorm: 3 21293 1 Tablet(s) PO QD 09/14/2011 03/06/2013 Inactive Ambien 10 mg Tab RxNorm: 590377 1 Tablet(s) PO QHS 09/14/2011 012 Inactive hydrocodone-acetaminophen 10 mg-325 mg Tab RxNorm: 1615719 1-2 T ablet(s) PO TID 09/14/2011 No Stop Date Active as needed for pain - Previous quantity #240, will start dosing for #180 in April 2011 per Doctor Td. alprazolam 0.5 mg Tab RxNorm: 563018 1 Tablet(s) PO BID 09/14/2011 Inactive prn Zithromax 500 mg Tab RxNorm: 3567427 1 Tablet(s) PO QD 09/13/201106/2012 Inactive prednisone 20 mg Tab RxNorm: 741107 1 Tablet(s) PO BID 08/31/2011 Inactive Ambien 10 mg Tab RxNorm: 205762 1 Tablet(s) PO QHS 08/17/2011 011 Inactive hydrocodone-acetaminophen 10 mg-325 mg Tab RxNorm: 1590592 1-2 T ablet(s) PO TID 08/17/2011 No Stop Date Active as needed for pain - Previous quantity #240, will start dosing for #180 in April 2011 per Doctor Td. clonidine 0.2 mg Tab RxNorm: 750520 1 Tablet(s) PO TID 08/17/201112/2011 Inactive Ambien 10 mg Tab RxNorm: 307015 1 Tablet(s) PO QHS 08/17/2011 019 Inactive alprazolam 0.5 mg Tab RxNorm: 662789 1 Tablet(s) PO BID 08/17/2011 Inactive prn hydrocodone-acetaminophen 10 mg-325 mg Tab RxNorm: 9108734 1-2 T ablet(s) PO TID 08/17/2011 08/16/2011 Inactive as needed for pain - Previous quantity #240, will start dosing for #180 in April 2011 per Doctor Td. Singulair 10 mg Tab RxNorm: 394661 1 Tablet(s) PO QD 08/17/201108/16 Inactive Klor-Con 8 mEq Tab RxNorm: 069591 1 Tablet(s) PO QD 08/17/20112011 Inactive alprazolam 0.5 mg Tab RxNorm: 458539 1 Tablet(s) PO BID 07/20/2011 Inactive prn Ambien 10 mg Tab RxNorm: 246066 1 Tablet(s) PO QHS 07/20/2011 012 Inactive Singulair 10 mg Tab RxNorm: 004425 1 Tablet(s) PO QD 07/20/201107/19 Inactive Premarin 1.25 mg tablet RxNorm: 242350 2 Tablet(s) PO QD 07/20/2011 0 01/21/2019 Inactive Premarin 1.25 mg tablet RxNorm: 908755 1-2 Tablet(s) PO QD 07/20/20 11 12/16/2011 Inactive Premarin 1.25 mg Tab RxNorm: 257984 1-2 Tablet(s) PO QD 07/06/2011 Inactive alprazolam 0.5 mg Tab RxNorm: 153066 1 Tablet(s) PO BID 06/22/2011 Inactive prn alprazolam 0.5 mg Tab RxNorm: 815229 1 Tablet(s) PO BID 06/22/2011 Inactive prn Premarin 1.25 mg Tab RxNorm: 151965 1 Tablet(s) PO QD m ay do 90 day fill if desired 06/22/2011 07/05/2011 Inactive hydrocodone-acetaminophen 10 mg-325 mg Tab RxNorm: 2568820 1-2 T ablet(s) PO TID 06/22/2011 No Stop Date Active as needed for pain - Previous quantity #240, will start dosing for #180 in April 2011 per Doctor Td. clonidine 0.2 mg Tab RxNorm: 113102 1 Tablet(s) PO TID 05/25/201103/2011 Inactive triamterene-hydrochlorothiazide 75 mg-50 mg Tab RxNorm: 3108 18 1 Tablet(s) PO QD 05/25/2011 09/13/2011 Inactive alprazolam 0.5 mg Tab RxNorm: 821697 1 Tablet(s) PO BID 05/25/2011 Inactive prn hydrocodone-acetaminophen 10 mg-325 mg Tab RxNorm: 4176626 1-2 T ablet(s) PO TID 05/25/2011 No Stop Date Active as needed for pain - Previous quantity #240, will start dosing for #180 in April 2011 per Doctor Td. Robaxin-750 750 mg Tab RxNorm: 195393 2 Tablet(s) PO QHS 05/22/2011 1 Inactive prn spasm hydrocodone-acetaminophen 10 mg-325 mg Tab RxNorm: 0352641 1-2 T ablet(s) PO TID 04/26/2011 No Stop Date Active as needed for pain - Previous quantity #240, will start dosing for #180 in April 2011 per Doctor Td. alprazolam 0.5 mg Tab RxNorm: 895894 1 Tablet(s) PO BID 04/25/2011 Inactive prn Klor-Con 8 mEq Tab RxNorm: 331822 1 Tablet(s) PO QD 03/30/20112010 Inactive Klor-Con 8 mEq Tab RxNorm: 319675 1 Tablet(s) PO QD 03/29/20112010 Inactive hydrocodone-acetaminophen 10 mg-325 mg Tab RxNorm: 6687205 1-2 T ablet(s) PO TID 03/20/2011 04/25/2011 Inactive as needed for pain - Previous quantity #240, will start dosing for #180 in April 2011 per Doctor Td. alprazolam 0.5 mg Tab RxNorm: 457634 1 Tablet(s) PO BID prn 011 03/30/2011 Inactive Ambien 10 mg Tab RxNorm: 888640 1 Tablet(s) PO QHS 03/01/2011 011 Inactive cyclobenzaprine 10 mg Tab RxNorm: 269857 1 Tablet(s) PO TID 011 03/18/2012 Inactive cyclobenzaprine 10 mg Tab RxNorm: 829348 1 Tablet(s) PO TID 011 01/08/2011 Inactive cyclobenzaprine 10 mg Tab RxNorm: 231876 1 Tablet(s) PO TID 011 12/20/2010 Inactive terbinafine 250 mg Tab RxNorm: 427527 1 Tablet(s) PO QD 12/12/2010 Inactive triamterene-hydrochlorothiazide 75 mg-50 mg Tab RxNorm: 3108 18 1 Tablet(s) PO QD 12/07/2010 06/04/2011 Inactive Klor-Con 8 8 mEq Tab RxNorm: 762892 1 Tablet(s) PO QD 12/07/201001/08 Inactive Premarin 1.25 mg Tab RxNorm: 324757 2 Tablet(s) PO QD 12/07/201001/08 Inactive clonidine 0.2 mg Tab RxNorm: 759093 1 Tablet(s) PO TID 12/07/2010 Inactive hydrocodone-acetaminophen 7.5 mg-650 mg Tab RxNorm: 563556 1 Ta blet(s) PO Q4H 12/05/2010 01/21/2019 Inactive hydrocodone-acetaminophen 7.5 mg-650 mg Tab RxNorm: 463837 1 Ta blet(s) PO Q4H 10/26/2010 11/14/2010 Inactive hydrocodone-acetaminophen 7.5 mg-650 mg Tab RxNorm: 274620 1 Ta blet(s) PO Q4H 10/13/2010 10/25/2010 Inactive hydrocodone-acetaminophen 7.5 mg-650 mg Tab RxNorm: 964500 1 Ta blet(s) PO Q4H 09/15/2010 09/12/2010 Inactive alprazolam 0.5 mg Tab RxNorm: 252069 1 Tablet(s) PO BID prn 011 09/12/2010 Inactive terbinafine 250 mg Tab RxNorm: 002864 1 Tablet(s) PO QD 09/05/2010 Inactive hydrocodone-acetaminophen 7.5 mg-650 mg Tab RxNorm: 822082 1 Ta blet(s) PO Q4H 08/29/2010 09/17/2010 Inactive alprazolam 0.5 mg Tab RxNorm: 492688 1 Tablet(s) PO BID prn 010 09/27/2010 Inactive alprazolam 0.5 mg Tab RxNorm: 331849 1 Tablet(s) PO BID prn 09/06/2010 Inactive Klor-Con 8 mEq Tab RxNorm: 609823 1 Tablet(s) PO QD 08/08/20102010 Inactive hydrocodone-acetaminophen 7.5 mg-650 mg Tab RxNorm: 834381 1 Ta blet(s) PO Q4H 08/08/2010 08/27/2010 Inactive Ambien 10 mg Tab RxNorm: 277695 1 Tablet(s) PO QHS 08/08/2010 Inactive clonidine 0.2 mg Tab RxNorm: 260548 1 Tablet(s) PO TID 08/08/2010 Inactive Premarin 1.25 mg Tab RxNorm: 187907 2 Tablet(s) PO QD 08/08/201009/12 Inactive Ambien 10 mg Tab RxNorm: 350323 1 Tablet(s) PO QHS 07/18/2010 Inactive alprazolam 0.5 mg Tab RxNorm: 991992 1 Tablet(s) PO BID prn 08/07/2010 Inactive hydrocodone-acetaminophen 7.5 mg-650 mg Tab RxNorm: 498290 1 Ta blet(s) PO Q4H 07/12/2010 07/31/2010 Inactive clonidine 0.2 mg Tab RxNorm: 781263 1 Tablet(s) PO TID 06/20/2010 Inactive terbinafine 250 mg Tab RxNorm: 063754 1 Tablet(s) PO QD 05/24/2010 Inactive Clonidine 0.2 mg Tab RxNorm: 470617 1 Tablet(s) PO TID 05/24/201006/2010 Inactive Ambien 10 mg Tab RxNorm: 784959 1 Tablet(s) PO QHS 05/24/2010 010 Inactive alprazolam 0.5 mg Tab RxNorm: 759268 1 Tablet(s) PO BID 05/24/2010 Inactive Klor-Con 8 mEq Tab RxNorm: 950784 1 Tablet(s) PO QD 05/24/20102009 Inactive alprazolam 0.5 mg Tab RxNorm: 597755 2 Tablet(s) PO QD prn 05/24/20 10 07/17/2010 Inactive triamterene-hydrochlorothiazide 75 mg-50 mg Tab RxNorm: 3108 18 1 Tablet(s) PO QD 05/24/2010 11/19/2010 Inactive Ambien 10 mg Tab RxNorm: 411663 1 Tablet(s) PO QHS 05/23/2010 010 Inactive Alprazolam 0.5 mg Tab RxNorm: 752988 2 Tablet(s) PO QD prn 05/23/20 10 05/23/2010 Inactive Premarin 1.25 mg Tab RxNorm: 403507 2 Tablet(s) PO QD 05/19/201007/12 Inactive Hydrocodone-Acetaminophen 7.5 mg-650 mg Tab RxNorm: 791440 1 Ta blet(s) PO Q4H 05/19/2010 03/20/2011 Inactive Prednisone 20 mg Tab RxNorm: 023905 1 Tablet(s) PO BID 05/17/2010 Inactive Prednisone 20 mg Tab RxNorm: 336644 1 Tablet(s) PO BID 05/06/201001/2010 Inactive Premarin 1.25 mg Tab RxNorm: 147267 Tablet(s) PO 2 M-W-F, and 1 Tx-Re-Quy-Sun 05/05/2010 08/02/2010 Inactive Premarin 1.25 mg Tab RxNorm: 927866 Tablet(s) PO 2 M-W-F, and 1 Tc-Lq-Aio-Sun 05/04/2010 05/04/2010 Inactive Premarin 1.25 mg Tab RxNorm: 049849 Tablet(s) PO 2 M-W-F, and 1 Wp-Ed-Pdb-Sun 05/04/2010 05/03/2010 Inactive Prednisone 20 mg Tab RxNorm: 215470 1 Tablet(s) PO BID 04/27/2010 Inactive Alprazolam 0.5 mg Tab RxNorm: 445262 2 Tablet(s) PO QD prn 04/26/20 10 05/22/2010 Inactive Clindamycin 300 mg Cap RxNorm: 727210 2 Capsule(s) PO TID 04/05/2010 04/18/2010 Inactive Terbinafine 250 mg Tab RxNorm: 453083 1 Tablet(s) PO QD 04/04/2010 Inactive Hydrocodone-Acetaminophen 7.5 mg-650 mg Tab RxNorm: 780612 1 Ta blet(s) PO Q4H 03/30/2010 04/18/2010 Inactive Avelox 400 mg Tab RxNorm: 685276 1 Tablet(s) PO QD 03/09/2010 010 Inactive Hydrocodone-Acetaminophen 7.5 mg-650 mg Tab RxNorm: 953227 1 Ta blet(s) PO Q4H 03/08/2010 03/27/2010 Inactive Alprazolam 0.5 mg Tab RxNorm: 977521 2 Tablet(s) PO QD prn 03/08/20 10 04/25/2010 Inactive Klor-Con 8 mEq Tab RxNorm: 421063 1 Tablet(s) PO QD when takes lasi x 03/07/2010 08/03/2010 Inactive Premarin 1.25 mg Tab RxNorm: 216789 1 Tablet(s) PO QD 03/03/201003/11 Inactive Alprazolam 0.5 mg Tab RxNorm: 661235 1 Tablet(s) PO BID PRN 010 No Stop Date Active triamterene-hydrochlorothiazide 75 mg-50 mg Tab RxNorm: 3108 18 1 Tablet(s) PO QD 02/09/2010 02/03/2011 Inactive Hydrocodone-Acetaminophen 10 mg-750 mg Tab RxNorm: 808199 1 Tablet(s) PO Q4H PRN 02/09/2010 03/20/2011 Inactive Clonidine 0.2 mg Tab RxNorm: 367103 1 Tablet(s) PO TID 01/13/201009/2009 Inactive Alprazolam 0.5 mg Tab RxNorm: 617160 1 Tablet(s) PO BID PRN 010 01/12/2010 Inactive Hydrocodone-Acetaminophen 10 mg-750 mg Tab RxNorm: 666800 1 Tablet(s) PO Q4H PRN 01/13/2010 01/12/2010 Inactive ANGELIQ 1 mg-0.5 mg Tab RxNorm: 7780761 1 Tablet(s) PO QD 12/27/2009 01/23/2010 Inactive Lasix 40 mg Tab RxNorm: 600255 1 Tablet(s) PO QAM 12/14/2009 06/11/20 10 Inactive Vitamin B12 1000mcg Tablet RxNorm: 1 Tablet(s) PO QD No Start Date Active cyclobenzaprine 10 mg tablet RxNorm: 211931 1 Tablet(s) PO TID as needed DO NOT USE WITH BACLOFEN No Start Date Active Vitamin D 5,000 unit Tab RxNorm: 1 Tablet(s) PO QD No Start Date Active vitamin E (dl, acetate) 400 unit Cap RxNorm: 403404 1 Capsule(s ) PO QD No Start Date Active baclofen 10 mg tablet RxNorm: 490656 1 Tablet(s) PO TID as needed for muscle spasm No Start Date Active Benadryl 25 mg Cap RxNorm: 4909239 Capsule(s) PO PRN No Start Date Inactive amitriptyline 100 mg tablet RxNorm: 846628 1 Tablet(s) PO QHS No St art Date 11/27/2016 Inactive Zithromax Z-Dustin 250 mg tablet RxNorm: 523891 Tablet(s) PO as di rected No Start Date 07/22/2013 Inactive Klor-Con 8 mEq tablet,extended release RxNorm: 170000 1 Tablet( s) PO BID No Start Date 07/28/2012 Inactive scopolamine 1.5 mg 72 hr Transderm Patch RxNorm: 478982 Application TD Q72H for motion sickness No Start Date 05/25/2013 Inactive Klonopin 1 mg tablet RxNorm: 396790 1-2 Tablet(s) PO QHS as nee ded for sleep No Start Date 06/20/2015 Inactive Klor-Con M20 mEq tablet,extended release RxNorm: 503273 2 Tablet(s) PO BID to use with lasix No Start Date 11/11/2013 Inactive Bystolic 5 mg tablet RxNorm: 535227 1 Tablet(s) PO QD No Start Date 1 Inactive Bystolic 10 mg tablet RxNorm: 539354 1 Tablet(s) PO BID No Start Da te 07/06/2015 Inactive Premarin 1.25 mg Tab RxNorm: 134950 Tablet(s) PO 2 M-W-F, and 1 Uy-Ue-Odq-Sun No Start Date 05/03/2010 Inactive baclofen 20 mg tablet RxNorm: 858199 1 Tablet(s) PO TID as needed for muscle spasm No Start Date 07/22/2015 Inactive hydrocodone-acetaminophen 7.5 mg-650 mg Tab RxNorm: 163517 1 Tablet(s) PO Q4H as needed for pain No Start Date 03/20/2011 Inactive albuterol sulfate 1.25 mg/3 mL Neb Solution RxNorm: 244231 1 Unit Dose INH Q4H 2boxes No Start Date 09/06/2015 Inactive Butrans 20 mcg/hour Transderm Patch RxNorm: 454860 1 TD WEEKLY apply to skin weekly after removing previous. No Start Date 07/22/2013 Inactive Medrol (Dustin) 4 mg tablets in a dose pack RxNorm: 280553 Tablet(s) PO As Directed No Start Date 07/30/2016 Inactive hydrocodone-acetaminophen 10 mg-325 mg Tab RxNorm: 1838873 1-2 Tablet(s) PO TID as needed for pain No Start Date 03/19/2011 Inactive Klonopin 1 mg tablet RxNorm: 994052 1 Tablet(s) PO QHS No Start Date 02/28/2016 Inactive honey topical RxNorm: topical No Start Date 06/16/2018 Inactive Clonidine 0.2 mg Tab RxNorm: 701386 1 Tablet(s) PO TID No Start Date 01/12/2010 Inactive ketorolac 10 mg tablet RxNorm: 724890 1 Tablet(s) PO Q8H No Start D ate 03/18/2012 Inactive as needed for headache Singulair 10 mg Tab RxNorm: 487546 1 Tablet(s) PO QD No Start Date Inactive Premarin 1.25 mg Tab RxNorm: 714638 1 Tablet(s) PO QD No Start Date 1 Inactive Flonase 50 mcg/Actuation Nasal [place] RxNorm: 6885653 1 [place] CECELIA AL BID No Start Date 03/18/2012 Inactive Terbinafine 250 mg Tab RxNorm: 807064 1 Tablet(s) PO QD No Start Da te 04/03/2010 Inactive Fexofenadine 180 mg Tab RxNorm: 8185465 1 Tablet(s) PO QD No Start Date 09/06/2015 Inactive baclofen 20 mg tablet RxNorm: 169895 1 Tablet(s) PO TID as needed N o Start Date 05/25/2014 Inactive Diovan 160 mg Tab RxNorm: 419538 1 Tablet(s) PO QD No Start Date 09/12 Inactive mupirocin 2 % topical ointment RxNorm: 825858 1 Application TOP QID No Start Date 04/25/2016 Inactive ZOFRAN ODT 4 mg Tab, Rapid Dissolve RxNorm: 891325 1 Tablet(s) PO Q4H No Start Date 03/18/2012 Inactive as needed for nausea and vomiting Alprazolam 0.5 mg Tab RxNorm: 087350 1 Tablet(s) PO BID PRN No Star t Date 01/12/2010 Inactive cyclobenzaprine 10 mg tablet RxNorm: 498409 1 Tablet(s) PO TID as needed for muscle spasm No Start Date 10/08/2017 Inactive Albuterol 0.083% Aerosol Solution RxNorm: 1 Appl ication INH Q4H Use one ampule every 4 hrs with nebulizer as needed for shortness of breath. No Start Date 10/09/2010 Inactive lorazepam 1 mg tablet RxNorm: 521361 1 1/2 Tablet(s) PO QHS No Star t Date 02/02/2016 Inactive Melatonin 3 mg Tab RxNorm: 214502 Tablet(s) PO PRN No Start Date 07/11 Inactive Medrol (Dustin) 4 mg Tabs in a Dose Pack RxNorm: 628015 Tablet(s) PO N o Start Date 11/28/2010 Inactive lorazepam 1 mg tablet RxNorm: 431287 1 Tablet(s) PO QHS as need ed for sleep No Start Date 01/30/2016 Inactive hydrocodone-acetaminophen 10 mg-325 mg Tab RxNorm: 0908403 1-2 Tablet(s) PO QID as needed for severe pain No Start Date 03/24/2012 Inactive celecoxib 200 mg capsule RxNorm: 452646 1 Capsule(s) PO BID No Star t Date 06/26/2019 Inactive amlodipine 5 mg-benazepril 20 mg capsule RxNorm: 115172 1 Capsu le(s) PO QD No Start Date 04/10/2017 Inactive Bystolic 20 mg tablet RxNorm: 644851 1/2 Tablet(s) PO QAM No Start Date 01/23/2016 Inactive Bystolic 20 mg tablet RxNorm: 628807 1 Tablet(s) PO QAM No Start Da te 04/25/2016 Inactive Ambien 10 mg Tab RxNorm: 267964 1 Tablet(s) PO QHS No Start Date 05/11 Inactive Klor-Con 8 mEq Tab RxNorm: 460183 1 Tablet(s) PO QD when takes lasix No Start Date 03/06/2010 Inactive aspirin 81 mg tablet RxNorm: 134440 1 Tablet(s) PO QD No Start Date 0 01/29/2018 Inactive hydrocodone-acetaminophen 10 mg-325 mg Tab RxNorm: 6670357 1-2 T ablet(s) PO QID No Start Date 01/10/2012 Inactive Bystolic 10 mg tablet RxNorm: 004205 1 Tablet(s) PO QAM take one daily in the morning. No Start Date 05/28/2013 Inactive nystatin 100,000 unit/mL Oral Susp RxNorm: 437725 5 Milliliter( s) PO QID No Start Date 03/18/2012 Inactive swish and spit scopolamine 1.5 mg 72 hr Transderm Patch RxNorm: 889275 1 Unit Dose TD Q72H for motion sickness No Start Date 12/23/2013 Inactive Hydrocodone-Acetaminophen 10 mg-750 mg Tab RxNorm: 695739 1 Tablet(s) PO Q4H PRN No Start Date 01/12/2010 Inactive Soma 350 mg tablet RxNorm: 633278 1 Tablet(s) PO TID as needed for spasm No Start Date 01/12/2013 Inactive Soma 350 mg Tab RxNorm: 370067 1 Tablet(s) PO TID for spasm No Star t Date 01/31/2012 Inactive Co Q-10 400 mg capsule RxNorm: 334301 1 Capsule(s) PO QD No Start D ate 01/21/2019 Inactive nystatin 100,000 unit/gram topical cream RxNorm: 020547 Applica tion TOP BID No Start Date 03/22/2015 Inactive Exforge 5 mg-160 mg Tab RxNorm: 105404 1 Tablet(s) PO QD No Start D ate 10/09/2010 Inactive Hydrocodone-Acetaminophen 7.5 mg-650 mg Tab RxNorm: 902954 1 Ta blet(s) PO Q4H No Start Date 03/07/2010 Inactive Robaxin-750 750 mg Tab RxNorm: 751443 1-2 Tablet(s) PO TID prn spasm No Start Date 05/21/2011 Inactive amlodipine 5 mg tablet RxNorm: 373711 1 Tablet(s) PO QHS No Start D ate 09/29/2015 Inactive oxycodone-acetaminophen 10 mg-325 mg tablet RxNorm: 5772124 1-2 Tablet(s) PO Q6H No Start Date 06/16/2018 Inactive Triamterene-Hydrochlorothiazide 75 mg-50 mg Tab RxNorm: 3108 18 1 Tablet(s) PO QD No Start Date 02/08/2010 Inactive Alprazolam 0.5 mg Tab RxNorm: 366008 2 Tablet(s) PO QD prn No Start Date 03/07/2010 Inactive Bystolic 20 mg tablet RxNorm: 873480 1 Tablet(s) PO QAM No Start Da te 08/17/2015 Inactive ketorolac 10 mg tablet RxNorm: 097344 1 Tablet(s) PO QID prn he adache No Start Date 07/17/2012 Inactive acyclovir 800 mg Tab RxNorm: 139910 1 Tablet(s) PO BID No Start Date 03/18/2012 Inactive duloxetine 60 mg capsule,delayed release RxNorm: 851241 1 Capsu le(s) PO QD No Start Date 09/29/2015 Inactive Norvasc 5 mg tablet RxNorm: 620551 1 Tablet(s) PO QHS No Start Date 1 10/18/2014 Inactive promethazine 25 mg tablet RxNorm: 354856 1 Tablet(s) PO Q8H use sparingly No Start Date 07/22/2013 Inactive alprazolam 0.5 mg tablet RxNorm: 321822 3 Tablet(s) PO QHS No Start Date 06/06/2015 Inactive Lunesta 3 mg tablet RxNorm: 280430 1 Tablet(s) PO QHS No Start Date 0 09/20/2017 Inactive hydrocodone-acetaminophen 10 mg-325 mg Tab RxNorm: 9630993 1-2 Tablet(s) PO TID as needed for pain No Start Date 12/10/2011 Inactive Coricidin HBP Cough & Cold 4 mg-30 mg Tab RxNorm: 5502210 Tablet (s) PO PRN No Start Date 10/09/2010 Inactive Bactroban 2 % Ointment RxNorm: 645166 Application TOP QID to so res No Start Date 02/22/2012 Inactive Flonase 50 mcg/actuation Nasal [place] RxNorm: 751080 2 [place] QHS No Start Date 03/03/2014 Inactive Medication Administered No Medication Administered data Immunizations Vaccine Codes Date Status Tetanus, Diptheria, Pertussis CVX: 115 02/27/2014 Results Observation Observation Code Item Item Code Result Date S [facility] Location COMPLETE BLOOD COUNT [id number] WBC 10.7 10e9/L 018 Unknown COMPLETE BLOOD COUNT [id number] RBC 4.59 10e12/L 2017 Unknown COMPLETE BLOOD COUNT [id number] HEMOGLOBIN 14.8 g/dL 12/11/19 18 Unknown COMPLETE BLOOD COUNT [id number] HEMATOCRIT 44.9 % 12/11/19 18 Unknown COMPLETE BLOOD COUNT 8365871 MCV 97.8 fL 8 Unknown COMPLETE BLOOD COUNT 6089169 MCH 32.2 pg 8 Unknown COMPLETE BLOOD COUNT 6040473 MCHC 33.0 g/dL 8 Unknown COMPLETE BLOOD COUNT [id number] PLATELET COUNT 261 10e9/L 10/2017 Unknown COMPLETE BLOOD COUNT [id number] Mean Plt Volume 9.5 fL 10/2017 Unknown COMPLETE BLOOD COUNT [id number] Neut Auto 59.9 % 8 Unknown COMPLETE BLOOD COUNT 5380027 Lymph Auto 27.4 % 12/11/19 18 Unknown COMPLETE BLOOD COUNT [id number] Norman Auto 8.2 % 8 Unknown COMPLETE BLOOD COUNT 8232315 RDW 13.3 % 8 Unknown COMPLETE BLOOD COUNT [id number] Eos Auto 4.1 % 8 Unknown COMPLETE BLOOD COUNT 5058397 Baso Auto 0.4 % 8 Unknown COMPLETE BLOOD COUNT [id number] Neutrophil Abs 6.41 10e9/L Unknown COMPLETE BLOOD COUNT [id number] Lymphocyte Abs 2.93 10e9/L Unknown COMPLETE BLOOD COUNT [id number] Monocyte Abs 0.88 10e9/L 10/2017 Unknown COMPLETE BLOOD COUNT 5200602 Eosinophil Abs 0.44 10e9/L Unknown COMPLETE BLOOD COUNT 0385522 RDW-SD 46.2 fL 8 Unknown COMPLETE BLOOD COUNT [id number] Basophil Abs 0.04 10e9/L 10/2017 Unknown THYROID STIMULATING HORMONE 87307 TSH 4.015 uIU/mL 12/10/2017 Unknown COMPREHENSIVE METABOLIC 28298 AST 25 U/L 2017 Unknown COMPREHENSIVE METABOLIC 59514 ALT 17 U/L 2017 Unknown COMPREHENSIVE METABOLIC 65485 BUN 19 mg/dL 2017 Unknown COMPREHENSIVE METABOLIC 96056 ALBUMIN 4.0 g/dL 2017 Unknown COMPREHENSIVE METABOLIC 25462 CHLORIDE 91 mmol/L 2017 Unknown COMPREHENSIVE METABOLIC 23150 Bili Total 0.5 mg/dL 12/10 Unknown COMPREHENSIVE METABOLIC 06495 ALK PHOS 75 U/L 2017 Unknown COMPREHENSIVE METABOLIC 60807 SODIUM 136 mmol/L 12/10 Unknown COMPREHENSIVE METABOLIC 38685 CREATININE 1.05 mg/dL 10/2017 Unknown COMPREHENSIVE METABOLIC 48246 CALCIUM 8.9 mg/dL 2017 Unknown COMPREHENSIVE METABOLIC 73392 POTASSIUM 3.4 mmol/L 12/10 Unknown COMPREHENSIVE METABOLIC 10031 Total Protein 6.5 g/dL Unknown COMPREHENSIVE METABOLIC 43199 Glucose 138 mg/dL 2017 Unknown COMPREHENSIVE METABOLIC 47924 Bicarbonate 35 mmol/L 10/2017 Unknown COMPREHENSIVE METABOLIC 19501 AGAP 10 mmol/L 2017 Unknown MEAN GLUC 3911587 Calc Mean Gluc 171 mg/dL 12/10/2017 Unkn own LIPID GROUP 83965 Cholesterol 204 mg/dL 12/10/2017 Unkno wn LIPID GROUP 66046 Triglyceride 411 mg/dL 12/10/2017 Unkn own LIPID GROUP 86636 HDL CHOLESTEROL 50 mg/dL 12/10/2017 U nknown LIPID GROUP 13082 Chol/HDL Ratio 4.08 ratio 12/10/2017 U nknown LIPID GROUP 48148 NON-HDL Chol 154 mg/dL 12/10/2017 Unkn own LIPID GROUP 42891 LDL Cholesterol N/A Trig >400 018 Unknown GLYCOSYLATED HEMOGLOBIN TEST 02466 Hgb A1c 15109-4 7.6 % 0 12/10/2017 Unknown FREE T4 92549 T4 Free 1.40 ng/dL 12/10/2017 Unknown GFR CALC 9475626 GFR Non Afr Amr 55 mL/min 12/10/2017 Unk nown GFR CALC 3247140 GFR Afr Amr >60 mL/min 12/10/2017 Unknow n GFR CALC 9724992 GFR Non Afr Amr 48 mL/min 06/28/2017 Unk nown GFR CALC 1108079 GFR Afr Amr 59 mL/min 06/28/2017 Unknown COMPREHENSIVE METABOLIC 58863 AST 32 U/L 2016 Unknown COMPREHENSIVE METABOLIC 89865 ALT 22 U/L 2016 Unknown COMPREHENSIVE METABOLIC 64005 BUN 23 mg/dL 2016 Unknown COMPREHENSIVE METABOLIC 33626 ALBUMIN 4.7 g/dL 2016 Unknown COMPREHENSIVE METABOLIC 65214 CHLORIDE 89 mmol/L 2016 Unknown COMPREHENSIVE METABOLIC 33059 Bili Total 0.5 mg/dL 06/28 Unknown COMPREHENSIVE METABOLIC 51210 ALK PHOS 90 U/L 2016 Unknown COMPREHENSIVE METABOLIC 44415 SODIUM 135 mmol/L 06/28 Unknown COMPREHENSIVE METABOLIC 16977 CREATININE 1.18 mg/dL 06/10 Unknown COMPREHENSIVE METABOLIC 75348 CALCIUM 9.7 mg/dL 2016 Unknown COMPREHENSIVE METABOLIC 09152 POTASSIUM 3.5 mmol/L 06/28 Unknown COMPREHENSIVE METABOLIC 73677 Total Protein 7.7 g/dL Unknown COMPREHENSIVE METABOLIC 39078 Glucose 129 mg/dL 2016 Unknown COMPREHENSIVE METABOLIC 67148 Bicarbonate 34 mmol/L 06/10 Unknown COMPREHENSIVE METABOLIC 77877 AGAP 12 mmol/L 2016 Unknown LIPID GROUP 90822 HDL TEST 64 MG/DL 08/27/2014 Unknown LIPID GROUP 01783 TRIG 222 MG/DL 08/27/2014 Unknown LIPID GROUP 49642 TEST LDL 209 MG/DL 08/27/2014 Unknown LIPID GROUP 36501 CHOL 317 MG/DL 08/27/2014 Unknown LIPID GROUP 83647 RCHOL/HDL 4.95 RATIO 08/27/2014 Unknow n LIPID GROUP 93531 NON-HDL CH 253 MG/DL 08/27/2014 Unknow n GFR CALC 1476710 GFR AA >60 ML/MIN 08/27/2014 Unknown GFR CALC 5914307 GFR NON-AA >60 ML/MIN 08/27/2014 Unknown COMPLETE BLOOD COUNT 0979902 WBC 7.0 10e9/L 08/27/20 14 Unknown COMPLETE BLOOD COUNT 7282457 RBC 4.98 10e12/L 2013 Unknown COMPLETE BLOOD COUNT 8996989 HGB 15.6 g/dL 4 Unknown COMPLETE BLOOD COUNT 4212176 HCT DET 46.5 % 4 Unknown COMPLETE BLOOD COUNT 1915744 MCV 93.4 fL 4 Unknown COMPLETE BLOOD COUNT 4907545 MCH 31.3 pg 4 Unknown COMPLETE BLOOD COUNT 5792107 MCHC 33.5 g/dL 4 Unknown COMPLETE BLOOD COUNT 0422285 PLT 309 10e9/L 08/27/20 14 Unknown COMPLETE BLOOD COUNT 9334890 MPV 9.6 fL 4 Unknown COMPLETE BLOOD COUNT 4072273 CADEN % 57.2 % 4 Unknown COMPLETE BLOOD COUNT 9584102 LY % 33.2 % 4 Unknown COMPLETE BLOOD COUNT [id number] MON % 7.3 % 4 Unknown COMPLETE BLOOD COUNT 3092990 EOS % 2.0 % 4 Unknown COMPLETE BLOOD COUNT 1483698 BASO % 0.3 % 4 Unknown COMPLETE BLOOD COUNT 7105990 RDW 13.7 % 4 Unknown COMPLETE BLOOD COUNT [id number] ABS CADEN 4.00 10e9/L 014 Unknown COMPLETE BLOOD COUNT 5435684 ABS LYMPH 2.32 10e9/L 014 Unknown COMPLETE BLOOD COUNT 6046800 ABS MONO 0.51 10e9/L 014 Unknown COMPLETE BLOOD COUNT 9443789 ABS EOS 0.14 10e9/L 014 Unknown COMPLETE BLOOD COUNT 6206639 ABS BASO 0.02 10e9/L 014 Unknown COMPLETE BLOOD COUNT 6693896 RDW-SD 45.1 fL 4 Unknown COMPREHENSIVE METABOLIC 37440 AST 13 U/L 2013 Unknown COMPREHENSIVE METABOLIC 49288 ALT 11 IU/L 2013 Unknown COMPREHENSIVE METABOLIC 98800 BUN 23 MG/DL 2013 Unknown COMPREHENSIVE METABOLIC 00599 ALBUMIN 4.4 GM/DL 2013 Unknown COMPREHENSIVE METABOLIC 11290 CHLORIDE 99 MMOL/L 2013 Unknown COMPREHENSIVE METABOLIC 49898 BILI TOT 0.5 MG/DL 2013 Unknown COMPREHENSIVE METABOLIC 36965 ALK PHOS 56 U/L 2013 Unknown COMPREHENSIVE METABOLIC 72309 SODIUM 138 MMOL/L 08/27 Unknown COMPREHENSIVE METABOLIC 01109 CREATININE 0.95 MG/DL 08/10 Unknown COMPREHENSIVE METABOLIC 62653 CALCIUM 9.8 MG/DL 2013 Unknown COMPREHENSIVE METABOLIC 92644 POTASSIUM 3.5 MMOL/L 08/27 Unknown COMPREHENSIVE METABOLIC 45269 PROT TOT 6.8 GM/DL 2013 Unknown COMPREHENSIVE METABOLIC 89756 Glucose 90 MG/DL 2013 Unknown COMPREHENSIVE METABOLIC 87200 BICARB 34 MMOL/L 2013 Unknown COMPREHENSIVE METABOLIC 52789 ANION GAP 5 MEQ/L 2013 Unknown LIPASE 61134 LIPASE 11 IU/L 07/21/2014 Unknown AMYLASE 54272 AMYLASE 39 IU/L 07/21/2014 Unknown HEMOGLOBIN A1C (GLYCOSYLATED) 1034427 A1C [facility] 54455-9 6.2 % 03/05/2013 Unknown THYROID STIMULATING HORMONE 44177 TSH 6.986 uIU/ML 03/05/2013 Unknown COMPLETE BLOOD COUNT 7828045 WBC 12.7 10e9/L 013 Unknown COMPLETE BLOOD COUNT 1430121 RBC 4.53 10e12/L 2012 Unknown COMPLETE BLOOD COUNT 4137546 HGB 14.7 g/dL 3 Unknown COMPLETE BLOOD COUNT 7037455 HCT DET 43.1 % 3 Unknown COMPLETE BLOOD COUNT 1650680 MCV 95.1 fL 3 Unknown COMPLETE BLOOD COUNT 2587292 MCH 32.5 pg 3 Unknown COMPLETE BLOOD COUNT 5018250 MCHC 34.1 g/dL 3 Unknown COMPLETE BLOOD COUNT 9638096 PLT 346 10e9/L 03/05/20 13 Unknown COMPLETE BLOOD COUNT 5418258 MPV 9.5 fL 3 Unknown COMPLETE BLOOD COUNT 3698717 CADEN % 67.6 % 3 Unknown COMPLETE BLOOD COUNT 4674037 LY % 22.1 % 3 Unknown COMPLETE BLOOD COUNT 2365675 MON % 6.6 % 3 Unknown COMPLETE BLOOD COUNT 7439128 EOS % 3.3 % 3 Unknown COMPLETE BLOOD COUNT 0454599 BASO % 0.4 % 3 Unknown COMPLETE BLOOD COUNT 0258430 RDW 14.0 % 3 Unknown COMPLETE BLOOD COUNT 2407111 ABS CADEN 8.59 10e9/L 013 Unknown COMPLETE BLOOD COUNT 5012682 ABS LYMPH 2.81 10e9/L 013 Unknown COMPLETE BLOOD COUNT 6863624 ABS MONO 0.84 10e9/L 013 Unknown COMPLETE BLOOD COUNT 3303275 ABS EOS 0.42 10e9/L 013 Unknown COMPLETE BLOOD COUNT 0451373 ABS BASO 0.05 10e9/L 013 Unknown COMPLETE BLOOD COUNT 7464936 RDW-SD 46.0 fL 3 Unknown FREE T4 08044 FREE T4 1.14 NG/DL 03/05/2013 Unknown COMPREHENSIVE METABOLIC 25653 AST 17 U/L 2012 Unknown COMPREHENSIVE METABOLIC 20942 ALT 12 IU/L 2012 Unknown COMPREHENSIVE METABOLIC 56727 BUN 24 MG/DL 2012 Unknown COMPREHENSIVE METABOLIC 59704 ALBUMIN 4.2 GM/DL 2012 Unknown COMPREHENSIVE METABOLIC 99855 CHLORIDE 93 MMOL/L 2012 Unknown COMPREHENSIVE METABOLIC 00014 BILI TOT 0.5 MG/DL 2012 Unknown COMPREHENSIVE METABOLIC 97831 ALK PHOS 75 U/L 2012 Unknown COMPREHENSIVE METABOLIC 25068 SODIUM 141 MMOL/L 03/05 Unknown COMPREHENSIVE METABOLIC 98121 CREATININE 1.36 MG/DL 02/09 Unknown COMPREHENSIVE METABOLIC 12538 CALCIUM 9.2 MG/DL 2012 Unknown COMPREHENSIVE METABOLIC 12351 POTASSIUM 3.1 MMOL/L 03/05 Unknown COMPREHENSIVE METABOLIC 45308 PROT TOT 6.9 GM/DL 2012 Unknown COMPREHENSIVE METABOLIC 12169 Glucose 123 MG/DL 2012 Unknown COMPREHENSIVE METABOLIC 62287 BICARB 36 MMOL/L 2012 Unknown COMPREHENSIVE METABOLIC 70858 ANION GAP 12 MEQ/L 2012 Unknown GFR CALC 1294350 GFR AA 51.0L ML/MIN 03/05/2013 Unknow n GFR CALC 2207486 GFR NON-AA 42.0L ML/MIN 03/05/2013 Unkno wn COMPREHENSIVE METABOLIC 11856 AST 14 U/L 2012 Unknown COMPREHENSIVE METABOLIC 97310 ALT 11 IU/L 2012 Unknown COMPREHENSIVE METABOLIC 96605 BUN 16 MG/DL 2012 Unknown COMPREHENSIVE METABOLIC 80481 ALBUMIN 4.2 GM/DL 2012 Unknown COMPREHENSIVE METABOLIC 68637 CHLORIDE 98 MMOL/L 2012 Unknown COMPREHENSIVE METABOLIC 80216 BILI TOT 0.4 MG/DL 2012 Unknown COMPREHENSIVE METABOLIC 00201 ALK PHOS 77 U/L 2012 Unknown COMPREHENSIVE METABOLIC 47718 SODIUM 139 MMOL/L 09/25 Unknown COMPREHENSIVE METABOLIC 85072 CREATININE 0.86 MG/DL 09/10 Unknown COMPREHENSIVE METABOLIC 67517 CALCIUM 9.5 MG/DL 2012 Unknown COMPREHENSIVE METABOLIC 35662 POTASSIUM 3.8 MMOL/L 09/25 Unknown COMPREHENSIVE METABOLIC 74136 PROT TOT 6.8 GM/DL 2012 Unknown COMPREHENSIVE METABOLIC 34512 Glucose 91 MG/DL 2012 Unknown COMPREHENSIVE METABOLIC 29834 BICARB 32 MMOL/L 2012 Unknown COMPREHENSIVE METABOLIC 39011 ANION GAP 9 MEQ/L 2012 Unknown FREE T4 11671 FREE T4 0.98 NG/DL 09/25/2012 Unknown THYROID STIMULATING HORMONE 18833 TSH 1.736 uIU/ML 09/25/2012 Unknown C-REACTIVE PROTEIN (CRP) QUANT 12113 CRP 2.3 MG/DL 09/25/2012 Unknown COMPLETE BLOOD COUNT [id number] WBC 11.9 10e9/L 013 Unknown COMPLETE BLOOD COUNT 2090010 RBC 4.87 10e12/L 2012 Unknown COMPLETE BLOOD COUNT 5957033 HGB 15.1 g/dL 3 Unknown COMPLETE BLOOD COUNT 0457631 HCT DET 44.8 % 3 Unknown COMPLETE BLOOD COUNT 7446814 MCV 92.0 fL 3 Unknown COMPLETE BLOOD COUNT 6489191 MCH 31.0 pg 3 Unknown COMPLETE BLOOD COUNT 7551787 MCHC 33.7 g/dL 3 Unknown COMPLETE BLOOD COUNT 5381093 PLT 343 10e9/L 09/25/19 13 Unknown COMPLETE BLOOD COUNT 1657050 MPV 9.0 fL 3 Unknown COMPLETE BLOOD COUNT 7659508 CADEN % 68.2 % 3 Unknown COMPLETE BLOOD COUNT 0808084 LY % 22.4 % 3 Unknown COMPLETE BLOOD COUNT 6018873 MON % 6.4 % 3 Unknown COMPLETE BLOOD COUNT 1849257 EOS % 2.7 % 3 Unknown COMPLETE BLOOD COUNT [id number] BASO % 0.3 % 3 Unknown COMPLETE BLOOD COUNT 3216699 RDW 13.8 % 3 Unknown COMPLETE BLOOD COUNT 0891004 ABS CADEN 8.12 10e9/L 013 Unknown COMPLETE BLOOD COUNT [id number] ABS LYMPH 2.67 10e9/L 013 Unknown COMPLETE BLOOD COUNT [id number] ABS MONO 0.76 10e9/L 013 Unknown COMPLETE BLOOD COUNT 4256571 ABS EOS 0.32 10e9/L 013 Unknown COMPLETE BLOOD COUNT 0332285 ABS BASO 0.04 10e9/L 013 Unknown COMPLETE BLOOD COUNT 3446972 RDW-SD 45.6 fL 3 Unknown GFR CALC 7822770 GFR AA >60 ML/MIN 09/25/2012 Unknown GFR CALC 4442543 GFR NON-AA >60 ML/MIN 09/25/2012 Unknown ERYTHROCYTE SEDIMENTATION RATE 35901 ESR 19 MM/HR 05/06/2012 Unknown VITAMIN B 12 FOLIC ACID 65274|75967 VIT B 12 922 PG/ML 04/11 Unknown VITAMIN B 12 FOLIC ACID 71926|08868 FOLIC ACID 13.6 NG/ML Unknown URIC ACID 12125 URIC ACID 7.8 MG/DL 05/06/2012 Unknown COMPLETE BLOOD COUNT 67517 WBC 11.9 10e9/L 012 Unknown COMPLETE BLOOD COUNT 03279 RBC 5.30 10e12/L 2011 Unknown COMPLETE BLOOD COUNT 69723 HGB 16.6 g/dL 2 Unknown COMPLETE BLOOD COUNT 37823 HCT DET 47.2 % 2 Unknown COMPLETE BLOOD COUNT 81443 MCV 89.1 fL 2 Unknown COMPLETE BLOOD COUNT 70438 MCH 31.3 pg 2 Unknown COMPLETE BLOOD COUNT 53851 MCHC 35.2 g/dL 2 Unknown COMPLETE BLOOD COUNT 81743 PLT 362 10e9/L 05/06/20 12 Unknown COMPLETE BLOOD COUNT 21349 MPV 9.4 fL 2 Unknown COMPLETE BLOOD COUNT 89626 CADEN % 68.2 % 2 Unknown COMPLETE BLOOD COUNT 18341 LY % 22.0 % 2 Unknown COMPLETE BLOOD COUNT 89153 MON % 6.9 % 2 Unknown COMPLETE BLOOD COUNT 44909 EOS % 2.6 % 2 Unknown COMPLETE BLOOD COUNT 12287 BASO % 0.3 % 2 Unknown COMPLETE BLOOD COUNT 56846 RDW 12.8 % 2 Unknown COMPLETE BLOOD COUNT 78457 ABS CADEN 8.12 10e9/L 012 Unknown COMPLETE BLOOD COUNT 33707 ABS LYMPH 2.62 10e9/L 012 Unknown COMPLETE BLOOD COUNT 31845 ABS MONO 0.82 10e9/L 012 Unknown COMPLETE BLOOD COUNT 00957 ABS EOS 0.31 10e9/L 012 Unknown COMPLETE BLOOD COUNT 12697 ABS BASO 0.04 10e9/L 012 Unknown COMPLETE BLOOD COUNT 95203 RDW-SD 41.5 fL 2 Unknown GFR CALC 9435750 GFR AA >60 ML/MIN 05/06/2012 Unknown GFR CALC 6663696 GFR NON-AA 58.0L ML/MIN 05/06/2012 Unkno wn FREE T4 61901 FREE T4 1.15 NG/DL 05/06/2012 Unknown THYROID STIMULATING HORMONE 90687 TSH 1.568 uIU/ML 05/06/2012 Unknown COMPREHENSIVE METABOLIC 57844 AST 20 U/L 2011 Unknown COMPREHENSIVE METABOLIC 17421 ALT 12 IU/L 2011 Unknown COMPREHENSIVE METABOLIC 20457 BUN 20 MG/DL 2011 Unknown COMPREHENSIVE METABOLIC 53625 ALBUMIN 4.5 GM/DL 2011 Unknown COMPREHENSIVE METABOLIC 91813 CHLORIDE 91 MMOL/L 2011 Unknown COMPREHENSIVE METABOLIC 19048 BILI TOT 0.4 MG/DL 2011 Unknown COMPREHENSIVE METABOLIC 68600 ALK PHOS 73 U/L 2011 Unknown COMPREHENSIVE METABOLIC 99367 SODIUM 139 MMOL/L 05/06 Unknown COMPREHENSIVE METABOLIC 76579 CREATININE 1.02 MG/DL 04/11 Unknown COMPREHENSIVE METABOLIC 89183 CALCIUM 9.7 MG/DL 2011 Unknown COMPREHENSIVE METABOLIC 32998 POTASSIUM 3.1 MMOL/L 05/06 Unknown COMPREHENSIVE METABOLIC 75719 PROT TOT 7.3 GM/DL 2011 Unknown COMPREHENSIVE METABOLIC 16075 Glucose 118 MG/DL 2011 Unknown COMPREHENSIVE METABOLIC 60864 BICARB 33 MMOL/L 2011 Unknown COMPREHENSIVE METABOLIC 48479 ANION GAP 15 MEQ/L 2011 Unknown Procedures Procedure Codes Date URINALYSIS NONAUTO W/O SCOPE CPT-4: 94638 09/30/2018 MICROALBUMIN QUANTITATIVE CPT-4: 27832 09/30/2018 CEFTRIAXONE SODIUM INJECTION CPT-4: J0696 06/19/2018 THER/PROPH/DIAG INJ SC/IM CPT-4: 79362 06/19/2018 CEFTRIAXONE SODIUM INJECTION CPT-4: J0696 06/17/2018 THER/PROPH/DIAG INJ SC/IM CPT-4: 94439 06/17/2018 THER/PROPH/DIAG INJ SC/IM CPT-4: 48774 05/16/2018 KETOROLAC TROMETHAMINE INJ CPT-4: J1885 05/16/2018 ONDANSETRON HCL INJECTION CPT-4: J2405 05/16/2018 THER/PROPH/DIAG INJ SC/IM CPT-4: 39599 05/16/2018 ROUTINE VENIPUNCTURE CPT-4: 19753 03/20/2018 COMPREHEN METABOLIC PANEL CPT-4: 56600 03/20/2018 DEXAMETHASONE SODIUM PHOS CPT-4: J1100 02/11/2018 THER/PROPH/DIAG INJ SC/IM CPT-4: 99370 02/11/2018 TRIAMCINOLONE ACET INJ NOS CPT-4: J3301 02/11/2018 CEFTRIAXONE SODIUM INJECTION CPT-4: J0696 02/01/2018 THER/PROPH/DIAG INJ SC/IM CPT-4: 18142 02/01/2018 CEFTRIAXONE SODIUM INJECTION CPT-4: J0696 01/30/2018 THER/PROPH/DIAG INJ SC/IM CPT-4: 77775 01/30/2018 ROUTINE VENIPUNCTURE CPT-4: 82501 12/10/2017 ASSAY OF FREE THYROXINE CPT-4: 74662 12/10/2017 ASSAY THYROID STIM HORMONE CPT-4: 54624 12/10/2017 COMPREHEN METABOLIC PANEL CPT-4: 83434 12/10/2017 COMPLETE CBC W/AUTO DIFF WBC CPT-4: 78214 12/10/2017 LIPID PANEL CPT-4: 49585 12/10/2017 A1C HPLC CPT-4: 59050 12/10/2017 CEFTRIAXONE SODIUM INJECTION CPT-4: J0696 12/10/2017 THER/PROPH/DIAG INJ SC/IM CPT-4: 51306 12/10/2017 CEFTRIAXONE SODIUM INJECTION CPT-4: J0696 12/07/2017 THER/PROPH/DIAG INJ SC/IM CPT-4: 55601 12/07/2017 DEXAMETHASONE SODIUM PHOS CPT-4: J1100 12/07/2017 THER/PROPH/DIAG INJ SC/IM CPT-4: 13022 12/07/2017 CEFTRIAXONE SODIUM INJECTION CPT-4: J0696 10/08/2017 THER/PROPH/DIAG INJ SC/IM CPT-4: 69323 10/08/2017 CEFTRIAXONE SODIUM INJECTION CPT-4: J0696 09/21/2017 THER/PROPH/DIAG INJ SC/IM CPT-4: 48331 09/21/2017 CEFTRIAXONE SODIUM INJECTION CPT-4: J0696 09/20/2017 THER/PROPH/DIAG INJ SC/IM CPT-4: 95156 09/20/2017 REMOVAL OF NAIL PLATE CPT-4: 18641 08/29/2017 THER/PROPH/DIAG INJ SC/IM CPT-4: 62155 08/29/2017 TRIAMCINOLONE ACET INJ NOS CPT-4: J3301 08/29/2017 CEFTRIAXONE SODIUM INJECTION CPT-4: J0696 08/29/2017 THER/PROPH/DIAG INJ SC/IM CPT-4: 19025 08/29/2017 DESTRUCT PREMALG LESION (Cryosurgery) CPT-4: 29166 ROUTINE VENIPUNCTURE CPT-4: 10446 06/27/2017 ASSAY OF FREE THYROXINE CPT-4: 00724 06/27/2017 ASSAY THYROID STIM HORMONE CPT-4: 43109 06/27/2017 COMPREHEN METABOLIC PANEL CPT-4: 49550 06/27/2017 COMPLETE CBC W/AUTO DIFF WBC CPT-4: 94947 06/27/2017 EXC TR-EXT B9+REECE 0.5 CM< CPT-4: 80443 01/24/2017 THER/PROPH/DIAG INJ SC/IM CPT-4: 10683 08/02/2016 DEXAMETHASONE SODIUM PHOS CPT-4: J1100 08/02/2016 DESTRUCT PREMALG LESION (Cryosurgery) CPT-4: 66224 EXC TR-EXT B9+REECE 0.5 CM< CPT-4: 23830 08/01/2016 AEROBIC WOUND CULTURE & STN CPT-4: 70787 07/06/2016 CEFTRIAXONE SODIUM INJECTION CPT-4: J0696 05/25/2016 THER/PROPH/DIAG INJ SC/IM CPT-4: 01253 05/25/2016 THER/PROPH/DIAG INJ SC/IM CPT-4: 53977 04/26/2016 DEXAMETHASONE SODIUM PHOS CPT-4: J1100 04/26/2016 CEFTRIAXONE SODIUM INJECTION CPT-4: J0696 04/26/2016 THER/PROPH/DIAG INJ SC/IM CPT-4: 71506 04/26/2016 THER/PROPH/DIAG INJ SC/IM CPT-4: 18846 02/09/2016 TRIAMCINOLONE ACET INJ NOS CPT-4: J3301 02/09/2016 URINALYSIS NONAUTO W/O SCOPE CPT-4: 98884 01/24/2016 URINE CULTURE/ COLONY COUNT CPT-4: 26729 01/24/2016 THER/PROPH/DIAG INJ SC/IM CPT-4: 74197 12/08/2015 TRIAMCINOLONE ACET INJ NOS CPT-4: J3301 12/08/2015 THER/PROPH/DIAG INJ SC/IM CPT-4: 61779 10/07/2015 TRIAMCINOLONE ACET INJ NOS CPT-4: J3301 10/07/2015 DESTRUCT PREMALG LESION (Cryosurgery) CPT-4: 00822 THER/PROPH/DIAG INJ SC/IM CPT-4: 83881 03/16/2015 METHYLPREDNISOLONE 40 MG INJ CPT-4: J1030 03/16/2015 DESTRUCT PREMALG LESION (Cryosurgery) CPT-4: 91624 THER/PROPH/DIAG INJ SC/IM CPT-4: 19045 09/11/2014 METHYLPREDNISOLONE 40 MG INJ CPT-4: J1030 09/11/2014 TRIAMCINOLONE ACET INJ NOS CPT-4: J3301 09/11/2014 CEFTRIAXONE SODIUM INJECTION CPT-4: J0696 09/11/2014 THER/PROPH/DIAG INJ SC/IM CPT-4: 34106 09/11/2014 ROUTINE VENIPUNCTURE CPT-4: 75282 08/27/2014 COMPREHEN METABOLIC PANEL CPT-4: 04534 08/27/2014 COMPLETE CBC W/AUTO DIFF WBC CPT-4: 32949 08/27/2014 LIPID PANEL CPT-4: 12458 08/27/2014 ROUTINE VENIPUNCTURE CPT-4: 85761 07/21/2014 ASSAY OF AMYLASE CPT-4: 15203 07/21/2014 ASSAY OF LIPASE CPT-4: 75008 07/21/2014 THER/PROPH/DIAG INJ SC/IM CPT-4: 52045 07/15/2014 TRIAMCINOLONE ACET INJ NOS CPT-4: J3301 07/15/2014 ROUTINE VENIPUNCTURE CPT-4: 93040 05/14/2014 ASSAY OF FREE THYROXINE CPT-4: 73544 05/14/2014 ASSAY THYROID STIM HORMONE CPT-4: 69986 05/14/2014 COMPREHEN METABOLIC PANEL CPT-4: 29901 05/14/2014 COMPLETE CBC W/AUTO DIFF WBC CPT-4: 19094 05/14/2014 LIPID PANEL CPT-4: 63878 05/14/2014 CEFTRIAXONE SODIUM INJECTION CPT-4: J0696 04/21/2014 THER/PROPH/DIAG INJ SC/IM CPT-4: 22967 04/21/2014 THER/PROPH/DIAG INJ SC/IM CPT-4: 78723 04/21/2014 TRIAMCINOLONE ACET INJ NOS CPT-4: J3301 04/21/2014 THER/PROPH/DIAG INJ SC/IM CPT-4: 38536 03/04/2014 METHYLPREDNISOLONE 40 MG INJ CPT-4: J1030 03/04/2014 TRIAMCINOLONE ACET INJ NOS CPT-4: J3301 03/04/2014 CEFTRIAXONE SODIUM INJECTION CPT-4: J0696 03/04/2014 THER/PROPH/DIAG INJ SC/IM CPT-4: 86999 03/04/2014 TDAP VACCINE 7 YRS/> IM CPT-4: 82971 02/27/2014 IMMUNIZATION ADMIN CPT-4: 10218 02/27/2014 DESTRUCT PREMALG LESION (Cryosurgery) CPT-4: 00589 DESTRUCT PREMALG LES 2-14 CPT-4: 44863 01/13/2014 THER/PROPH/DIAG INJ SC/IM CPT-4: 46020 10/21/2013 METHYLPREDNISOLONE 40 MG INJ CPT-4: J1030 10/21/2013 TRIAMCINOLONE ACET INJ NOS CPT-4: J3301 10/21/2013 CEFTRIAXONE SODIUM INJECTION CPT-4: J0696 08/27/2013 THER/PROPH/DIAG INJ SC/IM CPT-4: 84392 08/27/2013 THER/PROPH/DIAG INJ SC/IM CPT-4: 54485 08/27/2013 METHYLPREDNISOLONE 40 MG INJ CPT-4: J1030 08/27/2013 TRIAMCINOLONE ACET INJ NOS CPT-4: J3301 08/27/2013 THER/PROPH/DIAG INJ SC/IM CPT-4: 11823 06/23/2013 METHYLPREDNISOLONE 40 MG INJ CPT-4: J1030 06/23/2013 TRIAMCINOLONE ACET INJ NOS CPT-4: J3301 06/23/2013 THER/PROPH/DIAG INJ SC/IM CPT-4: 41500 05/26/2013 METHYLPREDNISOLONE 40 MG INJ CPT-4: J1030 05/26/2013 TRIAMCINOLONE ACET INJ NOS CPT-4: J3301 05/26/2013 ROUTINE VENIPUNCTURE CPT-4: 29532 03/05/2013 ASSAY OF FREE THYROXINE CPT-4: 86769 03/05/2013 ASSAY THYROID STIM HORMONE CPT-4: 67755 03/05/2013 COMPREHEN METABOLIC PANEL CPT-4: 17486 03/05/2013 COMPLETE CBC W/AUTO DIFF WBC CPT-4: 41572 03/05/2013 A1C GLYCOSYLATED HEMOGLOBIN TEST CPT-4: 55298 013 DRAIN/INJECT JOINT/BURSA CPT-4: 72059 12/04/2012 METHYLPREDNISOLONE 40 MG INJ CPT-4: J1030 12/04/2012 TRIAMCINOLONE ACET INJ NOS CPT-4: J3301 12/04/2012 CEFTRIAXONE SODIUM INJECTION CPT-4: J0696 11/21/2012 THER/PROPH/DIAG INJ SC/IM CPT-4: 86683 11/21/2012 THER/PROPH/DIAG INJ SC/IM CPT-4: 97533 10/14/2012 METHYLPREDNISOLONE 40 MG INJ CPT-4: J1030 10/14/2012 TRIAMCINOLONE ACET INJ NOS CPT-4: J3301 10/14/2012 URINALYSIS NONAUTO W/O SCOPE CPT-4: 56446 09/27/2012 ROUTINE VENIPUNCTURE CPT-4: 80283 09/25/2012 ASSAY OF FREE THYROXINE CPT-4: 47596 09/25/2012 ASSAY THYROID STIM HORMONE CPT-4: 35578 09/25/2012 COMPREHEN METABOLIC PANEL CPT-4: 28786 09/25/2012 COMPLETE CBC W/AUTO DIFF WBC CPT-4: 53249 09/25/2012 C-REACTIVE PROTEIN CPT-4: 72755 09/25/2012 THER/PROPH/DIAG INJ SC/IM CPT-4: 54537 08/29/2012 METHYLPREDNISOLONE 40 MG INJ CPT-4: J1030 08/29/2012 TRIAMCINOLONE ACET INJ NOS CPT-4: J3301 08/29/2012 DESTRUCT PREMALG LESION (Cryosurgery) CPT-4: 19980 THER/PROPH/DIAG INJ SC/IM CPT-4: 40455 05/06/2012 METHYLPREDNISOLONE 40 MG INJ CPT-4: J1030 05/06/2012 TRIAMCINOLONE ACET INJ NOS CPT-4: J3301 05/06/2012 VITAMIN B 12 FOLIC ACID CPT-4: 80694|24169 05/06/2012 RBC SED RATE AUTOMATED CPT-4: 40730 05/06/2012 ROUTINE VENIPUNCTURE CPT-4: 73408 05/06/2012 ASSAY OF FREE THYROXINE CPT-4: 53672 05/06/2012 ASSAY THYROID STIM HORMONE CPT-4: 94859 05/06/2012 COMPREHEN METABOLIC PANEL CPT-4: 81291 05/06/2012 COMPLETE CBC W/AUTO DIFF WBC CPT-4: 20840 05/06/2012 ASSAY OF BLOOD/URIC ACID CPT-4: 48190 05/06/2012 THER/PROPH/DIAG INJ SC/IM CPT-4: 72549 03/19/2012 KETOROLAC TROMETHAMINE INJ CPT-4: J1885 03/19/2012 KETOROLAC TROMETHAMINE INJ CPT-4: J1885 01/30/2012 THER/PROPH/DIAG INJ SC/IM CPT-4: 28970 01/30/2012 PROMETHAZINE HCL INJECTION CPT-4: J2550 01/30/2012 THER/PROPH/DIAG INJ SC/IM CPT-4: 67109 01/24/2012 METHYLPREDNISOLONE 40 MG INJ CPT-4: J1030 01/24/2012 TRIAMCINOLONE ACET INJ NOS CPT-4: J3301 01/24/2012 THER/PROPH/DIAG INJ SC/IM CPT-4: 76052 09/13/2011 KETOROLAC TROMETHAMINE INJ CPT-4: J1885 09/13/2011 THER/PROPH/DIAG INJ SC/IM CPT-4: 17776 09/13/2011 PROMETHAZINE HCL INJECTION CPT-4: J2550 09/13/2011 CEFTRIAXONE SODIUM INJECTION CPT-4: J0696 07/20/2011 THER/PROPH/DIAG INJ SC/IM CPT-4: 71936 07/20/2011 THER/PROPH/DIAG INJ SC/IM CPT-4: 97841 07/20/2011 METHYLPREDNISOLONE INJECTION CPT-4: J2930 07/20/2011 URINALYSIS NONAUTO W/O SCOPE CPT-4: 48285 05/09/2011 CEFTRIAXONE SODIUM INJECTION CPT-4: J0696 05/09/2011 THER/PROPH/DIAG INJ SC/IM CPT-4: 55514 05/09/2011 THER/PROPH/DIAG INJ SC/IM CPT-4: 04796 05/09/2011 PROMETHAZINE HCL INJECTION CPT-4: J2550 05/09/2011 HYDRATION IV INFUSION INIT CPT-4: 25020 05/09/2011 DESTRUCT PREMALG LESION (Cryosurgery) CPT-4: 11415 DESTRUCT PREMALG LES 2-14 CPT-4: 53353 07/19/2010 REMOVAL OF SKIN TAGS <W/15 CPT-4: 30329 05/30/2010 THER/PROPH/DIAG INJ SC/IM CPT-4: 06069 04/05/2010 CEFTRIAXONE SODIUM INJECTION CPT-4: J0696 04/05/2010 TRIAMCINOLONE ACET INJ NOS CPT-4: J3301 04/05/2010 METHYLPREDNISOLONE 40 MG INJ CPT-4: J1030 04/05/2010 THER/PROPH/DIAG INJ SC/IM CPT-4: 27425 04/05/2010 TRIAMCINOLONE ACET INJ NOS CPT-4: J3301 03/09/2010 METHYLPREDNISOLONE 40 MG INJ CPT-4: J1030 03/09/2010 THER/PROPH/DIAG INJ SC/IM CPT-4: 59751 03/09/2010 THER/PROPH/DIAG INJ SC/IM CPT-4: 96742 03/09/2010 CEFTRIAXONE SODIUM INJECTION CPT-4: J0696 03/09/2010 Vital Signs Date Vital 05/28/2019 Blood Pressure 1: 126/82 Code: 8480-6 BMI: 35.0 Code: 16132-9 Heart Rate 1: 88 bpm Height: 5'4" [...] 1: 128/90 Code: 8480-6 BMI: 37.2 Code: 10028-1 Heart Rate 1: 84 bpm Height: 5'4" Respiratory Rate: 20 bpm SpO2: 95% Tempera ture: 36.6 (C) / 97.8 (F) Weight: 217 lbs 08/27/2018 Blood Pressure 1: 128/88 Code: 8480-6 BMI: 38.3 Code: 14199-9 Heart Rate 1: 84 bpm Height: 5'4" [...] 1: 119/72 Code: 8480-6 BMI: 37.4 Code: 71059-7 Heart Rate 1: 82 bpm Height: 5'4" Respiratory Rate: 12 bpm SpO2: 94% Tempera ture: 35.2 (C) / 95.4 (F) Weight: 218 lbs 12/18/2017 Blood Pressure 1: 128/86 Code: 8480-6 BMI: 37.8 Code: 80175-6 Heart Rate 1: 84 bpm Height: 5'4" [...] 1: 128/82 Code: 8480-6 BMI: 35.5 Code: 69870-1 Heart Rate 1: 84 bpm Height: 5'4" [...] 1: 128/82 Code: 8480-6 BMI: 30.2 Code: 06658-6 Heart Rate 1: 80 bpm Height: 5'4" [...] 1: 128/86 Code: 8480-6 BMI: 32.8 Code: 09313-9 Heart Rate 1: 66 bpm Height: 5'4" Respiratory Rate: 18 bpm Temperature: 36 .3 (C) / 97.3 (F) Weight: 191 lbs 06/23/2013 Blood Pressure 1: 132/94 Code: 8480-6 BMI: 34.0 Code: 84773-4 Heart Rate 1: 84 bpm Height: 5'4" Respiratory Rate: 20 bpm Temperature: 36 .8 (C) / 98.2 (F) Weight: 198 lbs 05/26/2013 Blood Pressure 1: 114/80 Code: 8480-6 BMI: 35.0 Code: 47479-8 Heart Rate 1: 80 bpm Height: 5'4" Respiratory Rate: 20 bpm Temperature: 36 .4 (C) / 97.6 (F) Weight: 204 lbs 04/16/2013 Blood Pressure 1: 114/82 Code: 8480-6 BMI: 36.7 Code: 41995-9 Heart Rate 1: 84 bpm Height: 5'4" Respiratory Rate: 20 bpm Temperature: 36 .7 (C) / 98.0 (F) Weight: 214 lbs 03/05/2013 Blood Pressure 1: 136/90 Code: 8480-6 BMI: 37.1 Code: 56976-6 Heart Rate 1: 84 bpm Height: 5'4" [...] 1: 168/114 Code: 8480-6 BMI: 36.2 Code: 29538-4 Heart Rate 1: 104 bpm Height: 5'4" Respiratory Rate: 20 bpm Temperature: 36 .8 (C) / 98.2 (F) Weight: 211 lbs 11/22/2012 Blood Pressure 1: 128/90 Code: 8480-6 Heart Rate 1: 88 bpm Respiratory Rate: 20 bpm SpO2: 96% Temperature: 36.8 (C) / 98.2 (F) 11/21/2012 Blood Pressure 1: 146/100 Code: 8480-6 BMI: 35.7 Code: 07355-3 Heart Rate 1: 96 bpm Height: 5'4" [...] 1: 138/100 Code: 8480-6 BMI: 35.7 Code: 95579-8 Heart Rate 1: 96 bpm Height: 5'4" Respiratory Rate: 20 bpm Temperature: 36 .8 (C) / 98.2 (F) Weight: 208 lbs 05/06/2012 Blood Pressure 1: 154/102 Code: 8480-6 BMI: 34.7 Code: 45957-0 Heart Rate 1: 116 bpm Height: 5'4" Respiratory Rate: 20 bpm Temperature: 36 .8 (C) / 98.2 (F) Weight: 202 lbs 04/03/2012 Blood Pressure 1: 134/94 Code: 8480-6 BMI: 34.8 Code: 21726-2 Heart Rate 1: 108 bpm Height: 5'4" Respiratory Rate: 20 bpm Temperature: 36 .8 (C) / 98.2 (F) Weight: 203 lbs 03/19/2012 Blood Pressure 1: 148/106 Code: 8480-6 BMI: 35.0 Code: 30258-3 Heart Rate 1: 100 bpm Height: 5'4" Respiratory Rate: 20 bpm Temperature: 36 .6 (C) / 97.9 (F) Weight: 204 lbs 02/22/2012 Blood Pressure 1: 146/94 Code: 8480-6 He art Rate 1: 88 bpm 02/21/2012 Blood Pressure 1: 172/120 Code: 8480-6 B lood Pressure 2: 152/106 Code: 8480-6 Heart Rate 1: 116 bpm 02/20/2012 Blood Pressure 1: 160/100 Code: 8480-6 BMI: 32.0 Code: 22204-6 Heart Rate 1: 84 bpm Height: 5'7" Temperature: 36.5 (C) / 97.7 (F) Weight: 204 lbs 01/30/2012 Blood Pressure 1: 152/110 Code: 8480-6 BMI: 32.0 Code: 40416-8 Heart Rate 1: 116 bpm Height: 5'7" Respiratory Rate: 20 bpm Temperature: 37 .0 (C) / 98.6 (F) Weight: 204 lbs 01/24/2012 Blood Pressure 1: 146/100 Code: 8480-6 BMI: 32.0 Code: 79173-6 Heart Rate 1: 100 bpm Height: 5'7" Respiratory Rate: 20 bpm Temperature: 36 .7 (C) / 98.0 (F) Weight: 204 lbs 01/10/2012 Blood Pressure 1: 156/94 Code: 8480-6 BMI: 32.6 Code: 36639-8 Heart Rate 1: 72 bpm Height: 5'7" Respiratory Rate: 20 bpm Temperature: 36 .8 (C) / 98.2 (F) Weight: 208 lbs 12/11/2011 Blood Pressure 1: 146/100 Code: 8480-6 Heart Rat e 1: 116 bpm Height: 5'7" Respiratory Rate: 20 bpm Temperature: 36.9 (C) / 98.4 (F) We ight: 11/09/2011 Blood Pressure 1: 148/96 Code: 8480-6 BMI: 32.1 Code: 87328-2 Heart Rate 1: 116 bpm Height: 5'7" Respiratory Rate: 20 bpm Temperature: 36 .7 (C) / 98.0 (F) Weight: 205 lbs 09/13/2011 Blood Pressure 1: 126/88 Code: 8480-6 Heart Rate 1: 88 bpm Height: 5'7" Respiratory Rate: 20 bpm Temperature: 36.9 (C) / 98.4 (F) We ight: 08/31/2011 Blood Pressure 1: 118/82 Code: 8480-6 BMI: 32.0 Code: 39756-2 Heart Rate 1: 80 bpm Height: 5'7" Temperature: 36.4 (C) / 97.6 (F) Weight: 204 lbs 07/06/2011 Blood Pressure 1: 128/86 Code: 8480-6 BMI: 30.9 Code: 41838-6 Heart Rate 1: 92 bpm Height: 5'7" Respiratory Rate: 20 bpm Temperature: 36 .9 (C) / 98.4 (F) Weight: 197 lbs 06/06/2011 Blood Pressure 1: 112/74 Code: 8480-6 BMI: 31.0 Code: 67620-1 Heart Rate 1: 72 bpm Height: 5'7" [...] 1: 128/92 Code: 8480-6 BMI: 33.6 Code: 83012-4 Heart Rate 1: 104 bpm Height: 5'4" [...] Check-up Encounters Encounter Performer Location Codes Date ([id number]) OFFICE/OUTPATIENT VISIT EST Diagnosis: Essential (primary) hypertension[ICD10: I10] Diagnosis: Fall from bed, sequela[ICD10: W06.XXXS] María Elena BRAUNGAEL Fbaiola APPIAH DO [facility] CPT-4: 78554 05/28/2019 ([id number]) NURSE/OUTPATIENT VISIT EST Diagnosis: Essential (primary) hypertension[ICD10: I10] María Elena APPIAH DO [facility] CPT-4: 70103 05/19/2019 ([id number]) OFFICE/OUTPATIENT VISIT EST Diagnosis: Essential (primary) hypertension[ICD10: I10] Diagnosis: Type 2 diabetes mellitus with hyperglycemia[ICD10: E11.65] Diagnosis: Intervertebral disc disorders with radiculopathy, 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] Diagnosis: Hormone replacement therapy[ICD10: Z79.890] María Elena ELLISLINE Fabiola APPIAH DO [facility] CPT-4: 50407 01/22/2019 ([id number]) OFFICE/OUTPATIENT VISIT EST Diagnosis: Essential (primary) hypertension[ICD10: I10] Diagnosis: Type 2 diabetes mellitus with hyperglycemia[ICD10: E11.65] María Elena APPIAH [employer] [facility] CPT-4: 10590 09/30/2018 ([id number]) OFFICE/OUTPATIENT VISIT EST Diagnosis: Pain in left elbow[ICD10: M25.522] Diagnosis: Acute stress reaction[ICD10: F43.0] Diagnosis: Primary insomnia[ICD10: F51.01] Diagnosis: Abnormal weight gain[ICD10: R63.5] María Elena Seamusdawn MONTEROAPARNACIARRA JEAN Fabiola APPIAH [employer] [facility] CPT-4: 09861 08/27/2018 ([id number]) OFFICE/OUTPATIENT VISIT EST Diagnosis: Acute recurrent sinusitis, unspecified[ICD10: J01.91] Diagnosis: Follicular disorder, unspecified[ICD10: L73.9] Diagnosis: Tinea corporis[ICD10: B35.4] María Elenamarcella ELLISLINE Fabiola APPIAH [employer] [facility] CPT-4: 81605 08/09/2018 ([id number]) OFFICE/OUTPATIENT VISIT EST Diagnosis: Tinea corporis[ICD10: B35.4] Diagnosis: Anxiety disorder, unspecified[ICD10: F41.9] Diagnosis: Menopausal and female climacteric states[ICD10: N95.1] María Elena APPIAH DO [facility] CPT-4: 62904 07/22/2018 ([id number]) NURSE/OUTPATIENT VISIT EST Diagnosis: Cellulitis of right toe[ICD10: L03.031] María Elena APPIAH DO [facility] CPT-4: 75966 06/19/2018 ([id number]) OFFICE/OUTPATIENT VISIT EST Diagnosis: Cellulitis of right toe[ICD10: L03.031] Kathleen APPIAH DO [facility] CPT-4: 34381 06/17/2018 ([id number]) OFFICE/OUTPATIENT VISIT EST Diagnosis: Migraine without aura, intractable, without status migrainosus[ICD10: G43.019] Diagnosis: Zoster without complications[ICD10: B02.9] Kathleen APPIAH DO [facility] CPT-4: 18317 05/16/2018 ([id number]) OFFICE/OUTPATIENT VISIT EST Diagnosis: Cellulitis of right lower limb[ICD10: L03.115] Kathleen APPIAH DO [facility] CPT-4: 69695 03/20/2018 ([id number]) OFFICE/OUTPATIENT VISIT EST Diagnosis: Cellulitis of right lower limb[ICD10: L03.115] Kathleen APPIAH DO [facility] CPT-4: 86527 03/18/2018 ([id number]) OFFICE/OUTPATIENT VISIT EST Diagnosis: Cellulitis of right lower limb[ICD10: L03.115] Kathleen APPIAH DO [facility] CPT-4: 32276 03/15/2018 ([id number]) OFFICE/OUTPATIENT VISIT EST Diagnosis: Acute sinusitis, unspecified[ICD10: J01.90] Kathleen APPIAH DO [facility] CPT-4: 98976 02/11/2018 ([id number]) NURSE/OUTPATIENT VISIT EST Diagnosis: Otitis media, unspecified, right ear[ICD10: H66.91] María Elena APPIAH [employer] [facility] CPT-4: 38684 02/01/2018 ([id number]) OFFICE/OUTPATIENT VISIT EST Diagnosis: Acute suppurative otitis media without spontaneous rupture of ear drum, left ear[ICD10: H66.002] Diagnosis: Abnormal weight gain[ICD10: R63.5] Diagnosis: Intervertebral disc disorders with radiculopathy, 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] Kathleen APPIAH DO [facility] CPT-4: 99 214 01/30/2018 ([id number]) PREV VISIT EST AGE 40-64 Diagnosis: Encounter for general adult medical examination without abnormal findings[ICD10: Z00.00] Diagnosis: Essential (primary) hypertension[ICD10: I10] Diagnosis: Mixed hyperlipidemia[ICD10: E78.2] Diagnosis: Type 2 diabetes mellitus with hyperglycemia[ICD10: E11.65] Diagnosis: 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] María Elena APPIAH [employer] [facility] CPT-4: 13185 12/18/2017 ([id number]) OFFICE/OUTPATIENT VISIT EST Diagnosis: Cellulitis of right toe[ICD10: L03.031] Diagnosis: Mixed hyperlipidemia[ICD10: E78.2] Diagnosis: Essential (primary) hypertension[ICD10: I10] Diagnosis: Hyperglycemia, unspecified[ICD10: R73.9] Diagnosis: Nontoxic goiter, 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] María Elena APPIAH [employer] [facility] CPT-4: 98742 12/10/2017 ([id number]) OFFICE/OUTPATIENT VISIT EST Diagnosis: Cellulitis of right toe[ICD10: L03.031] Diagnosis: Acute sinusitis, unspecified[ICD10: J01.90] Kathleen APPIAH [employer] [facility] CPT-4: 73465 12/07/2017 OFFICE/OUTPATIENT VISIT EST Diagnosis: Acute maxillary sinusitis, unspecified[ICD10: J01.00] Kathleen APPIAH DO [facility] CPT-4: 77731 10/08/2017 ([id number]) OFFICE/OUTPATIENT VISIT EST Diagnosis: Cellulitis of left toe[ICD10: L03.032] María Elena APPIAH [employer] [facility] CPT-4: 20799 09/21/2017 ([id number]) OFFICE/OUTPATIENT VISIT EST Diagnosis: Insomnia, unspecified[ICD10: G47.00] Diagnosis: Major depressive disorder, single episode, unspecified[ICD10: F32.9] Diagnosis: Anxiety disorder, unspecified[ICD10: F41.9] Diagnosis: Cellulitis of left toe[ICD10: L03.032] Diagnosis: Snoring[ICD10: R06.83] Kathleen APPIAH DO [facility] CPT-4: 93786 09/20/2017 ([id number]) OFFICE/OUTPATIENT VISIT EST Diagnosis: Cellulitis of left toe[ICD10: L03.032] María Elena Waymindivictorino ORTA [employer] [facility] CPT-4: 34531 07/19/2017 OFFICE/OUTPATIENT VISIT EST Diagnosis: Chronic sinusitis, unspecified[ICD10: J32.9] Diagnosis: Generalized hyperhidrosis[ICD10: R61] Kathleen APPIAH [employer] [facility] CPT-4: 70416 06/27/2017 ([id number]) OFFICE/OUTPATIENT VISIT EST Diagnosis: Intervertebral disc disorders with radiculopathy, 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] Diagnosis: Primary insomnia[ICD10: F51.01] Diagnosis: Other fatigue[ICD10: R53.83] María Elena JUARES AlanJj MARIVEL [employer] [facility] CPT-4: 45384 04/10/2017 ([id number]) OFFICE/OUTPATIENT VISIT EST Diagnosis: Primary insomnia[ICD10: F51.01] Diagnosis: Localized edema[ICD10: R60.0] Diagnosis: 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] María Elena JUARES AlanJj TD [facility] CPT-4: 86504 12/13/2016 ([id number]) OFFICE/OUTPATIENT VISIT EST Diagnosis: Primary insomnia[ICD10: F51.01] Diagnosis: Cyanosis[ICD10: R23.0] María Elena JUARES AlanJj SEAMUSGALINA [employer] [facility] CPT-4: 08100 11/01/2016 ([id number]) PREV VISIT EST AGE 40-64 Diagnosis: Encounter for gynecological examination (general) (routine) without abnormal findings[ICD10: Z01.419] Diagnosis: Encounter for routine child health examination without abnormal findings[ICD10: Z00.129] María Elena APPIAH DO [facility] CPT-4: 21189 10/17/2016 ([id number]) OFFICE/OUTPATIENT VISIT EST Diagnosis: Other seasonal allergic rhinitis[ICD10: J30.2] María Elena APPIAH DO [facility] CPT-4: 61097 10/10/2016 ([id number]) OFFICE/OUTPATIENT VISIT EST Diagnosis: Pain in left arm[ICD10: M79.602] Diagnosis: Contact with and (suspected) exposure to potentially hazardous body fluids[ICD10: Z77.21] Diagnosis: 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, 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] Diagnosis: Unspecified open wound, right foot, sequela[ICD10: S91.301S] María Elena APPIAH DO [facility] CPT-4: 16681 09/19/2016 ([id number]) OFFICE/OUTPATIENT VISIT EST Diagnosis: Chronic sinusitis, unspecified[ICD10: J32.9] Diagnosis: Allergic rhinitis due to pollen[ICD10: J30.1] María Elena APPIAH [employer] CPT-4: 20907 08/24/2016 ([id number]) OFFICE/OUTPATIENT VISIT EST Diagnosis: Acute bronchitis, unspecified[ICD10: J20.9] María Elena APPIAH DO [facility] CPT-4: 10301 08/16/2016 ([id number]) OFFICE/OUTPATIENT VISIT EST Diagnosis: Otitis media, unspecified, right ear[ICD10: H66.91] Diagnosis: Acute bronchitis, unspecified[ICD10: J20.9] María Elena APPIAH DO [facility] CPT-4: 67692 08/10/2016 ([id number]) OFFICE/OUTPATIENT VISIT EST Diagnosis: Acute recurrent sinusitis, unspecified[ICD10: J01.91] Diagnosis: Allergic rhinitis due to pollen[ICD10: J30.1] María Elena APPIAH DO [facility] CPT-4: 57843 08/02/2016 ([id number]) OFFICE/OUTPATIENT VISIT EST Diagnosis: Pain in unspecified joint[ICD10: M25.50] María Elena APPIAH DO [facility] CPT-4: 00343 07/27/2016 OFFICE/OUTPATIENT VISIT EST Diagnosis: 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] Diagnosis: Acute recurrent sinusitis, unspecified[ICD10: J01.91] Diagnosis: Other fatigue[ICD10: R53.83] Diagnosis: Primary insomnia[ICD10: F51.01] Diagnosis: Pain in unspecified joint[ICD10: M25.50] María Elena APPIAH DO [facility] CPT-4: 50898 07/20/2016 ([id number]) OFFICE/OUTPATIENT VISIT EST Diagnosis: Blister (nonthermal), left great toe, initial encounter[ICD10: S90.422A] Loan APPIAH [employer] [facility] CPT-4: 39215 ([id number]) OFFICE/OUTPATIENT VISIT EST Diagnosis: Acute recurrent sinusitis, unspecified[ICD10: J01.91] María Elena APPIAH DO [facility] CPT-4: 35398 05/25/2016 ([id number]) OFFICE/OUTPATIENT VISIT EST Diagnosis: Acute sinusitis, unspecified[ICD10: J01.90] María Elena APPIAH DO [facility] CPT-4: 27573 04/26/2016 ([id number]) OFFICE/OUTPATIENT VISIT EST Diagnosis: Flushing[ICD10: R23.2] Diagnosis: Primary insomnia[ICD10: F51.01] María Elena APPIAH DO [facility] CPT-4: 47580 03/02/2016 ([id number]) OFFICE/OUTPATIENT VISIT EST Diagnosis: Other seasonal allergic rhinitis[ICD10: J30.2] Loan APPIAH DO [facility] CPT-4: 16178 02/09/2016 ([id number]) OFFICE/OUTPATIENT VISIT EST Diagnosis: Primary insomnia[ICD10: F51.01] Diagnosis: Urinary tract infection, site not specified[ICD10: N39.0] María Elena APPIAH [facility] CPT-4: 46530 01/24/2016 ([id number]) OFFICE/OUTPATIENT VISIT EST Diagnosis: Other specified disorders of Eustachian tube, bilateral[ICD10: H69.83] Diagnosis: Allergic rhinitis, unspecified[ICD10: J30.9] Loan APPIAH [facility] CPT-4: 49391 12/23/2015 ([id number]) OFFICE/OUTPATIENT VISIT EST Diagnosis: Acute recurrent sinusitis, unspecified[ICD10: J01.91] Diagnosis: 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] Diagnosis: Allergic rhinitis, unspecified[ICD10: J30.9] María Elena APPIAH [facility] CPT-4: 59299 12/08/2015 ([id number]) OFFICE/OUTPATIENT VISIT EST Diagnosis: Allergic rhinitis, unspecified[ICD10: J30.9] Diagnosis: Pain in unspecified joint[ICD10: M25.50] María Elena APPIAH [facility] CPT-4: 95615 10/07/2015 ([id number]) OFFICE/OUTPATIENT VISIT EST Diagnosis: Essential (primary) hypertension[ICD10: I10] María Elena APPIAH [facility] CPT-4: 43535 10/06/2015 OFFICE/OUTPATIENT VISIT EST Diagnosis: Localized enlarged lymph nodes[ICD10: R59.0] Diagnosis: Local infection of the skin and subcutaneous tissue, unspecified[ICD10: L08.9] June Flores MARÍA ELENA APPIAH [facility] CPT- 4: 67963 09/14/2015 ([id number]) OFFICE/OUTPATIENT VISIT EST Diagnosis: Essential (primary) hypertension[ICD10: I10] Diagnosis: Actinic keratosis[ICD10: L57.0] María Elena APPIAH [facility] CPT-4: 23768 09/07/2015 ([id number]) OFFICE/OUTPATIENT VISIT EST Diagnosis: Essential (primary) hypertension[ICD10: I10] Diagnosis: Acute stress reaction[ICD10: F43.0] María Elena APPIAH DO [facility] CPT-4: 70876 08/18/2015 ([id number]) OFFICE/OUTPATIENT VISIT EST Diagnosis: Essential (primary) hypertension[ICD10: I10] María Elena APPIAH DO [facility] CPT-4: 95567 07/07/2015 ([id number]) OFFICE/OUTPATIENT VISIT EST Diagnosis: Essential (primary) hypertension[ICD10: I10] María Elena APPIAH DO [facility] CPT-4: 60146 06/24/2015 ([id number]) OFFICE/OUTPATIENT VISIT EST Diagnosis: Essential (primary) hypertension[ICD10: I10] María Elena APPIAH DO [facility] CPT-4: 14263 06/21/2015 ([id number]) OFFICE/OUTPATIENT VISIT EST Diagnosis: Essential (primary) hypertension[ICD10: I10] Diagnosis: Mixed hyperlipidemia[ICD10: E78.2] Diagnosis: Acute stress reaction[ICD10: F43.0] Diagnosis: Primary insomnia[ICD10: F51.01] María Elena APPIAH DO [facility] CPT-4: 44122 06/16/2015 ([id number]) OFFICE/OUTPATIENT VISIT EST Diagnosis: INSOMNIA NOS[ICD9: 780.52] Diagnosis: HYPERTENSION[ICD9: 401.9] Diagnosis: Stress reaction[ICD9: 308.9] María Elena APPIAH DO [facility] CPT-4: 42305 06/02/2015 ([id number]) OFFICE/OUTPATIENT VISIT EST Diagnosis: HYPERTENSION[ICD9: 401.9] Diagnosis: Stress reaction[ICD9: 308.9] María Elena APPIAH DO [facility] CPT-4: 85239 05/20/2015 ([id number]) OFFICE/OUTPATIENT VISIT EST Diagnosis: Skin lesion[ICD9: 709.9] 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] María Elena APPIAH DO [facility] CPT-4: 61248 05/10/2015 ([id number]) OFFICE/OUTPATIENT VISIT EST Diagnosis: SINUSITIS, ACUTE[ICD9: 461.9] Diagnosis: ALLERGIC RHINITIS[ICD9: 477.9] Diagnosis: DERMATITIS NOS[ICD9: 692.9] María Elena REHMAN [facility] CPT-4: 84194 03/16/2015 OFFICE/OUTPATIENT VISIT EST Diagnosis: Otitis media[ICD9: 382.9] Diagnosis: SINUSITIS, ACUTE[ICD9: 461.9] June APPIAH [facility] CPT-4: 11488 09/11/2014 ([id number]) OFFICE/OUTPATIENT VISIT EST Diagnosis: HYPERLIPIDEMIA NEC/NOS[ICD9: 272.4] María Elena APPIAH DO [facility] CPT-4: 42883 08/31/2014 ([id number]) OFFICE/OUTPATIENT VISIT EST Diagnosis: - I - HYPERTENSION[ICD9: 401.9] Diagnosis: HYPERLIPIDEMIA NEC/NOS[ICD9: 272.4] María Elena APPIAH [facility] CPT-4: 97045 08/27/2014 ([id number]) OFFICE/OUTPATIENT VISIT EST Diagnosis: ABDOMINAL PAIN[ICD9: 789.00] Diagnosis: DYSPEPSIA[ICD9: 536.8] Diagnosis: Thoracic back pain[ICD9: 724.1] María Elena APPIAH [facility] CPT-4: 88748 07/21/2014 ([id number]) OFFICE/OUTPATIENT VISIT EST Diagnosis: ALLERGIC RHINITIS[ICD9: 477.9] María Elena APPIAH DO [facility] CPT-4: 40993 07/15/2014 ([id number]) OFFICE/OUTPATIENT VISIT EST Diagnosis: EDEMA[ICD9: 782.3] Diagnosis: Chronic insomnia[ICD9: 780.52] María Elena APPIAH DO [facility] CPT-4: 71234 05/18/2014 ([id number]) OFFICE/OUTPATIENT VISIT EST Diagnosis: Thyromegaly[ICD9: 240.9] Diagnosis: - I - HYPERTENSION[ICD9: 401.9] Diagnosis: ROUTINE MEDICAL EXAM[ICD9: V70.0] Diagnosis: EDEMA[ICD9: 782.3] María Elena APPIAH [facility] CPT-4: 12860 05/14/2014 OFFICE/OUTPATIENT VISIT EST Diagnosis: BRONCHITIS, ACUTE[ICD9: 466.0] Diagnosis: SINUSITIS, ACUTE[ICD9: 461.9] María Elena APPIAH [facility] CPT-4: 12335 04/21/2014 OFFICE/OUTPATIENT VISIT EST Diagnosis: SINUSITIS, ACUTE[ICD9: 461.9] June Gabriellafatimah APPIAH [facility] CPT-4: 59057 03/04/2014 ([id number]) OFFICE/OUTPATIENT VISIT EST Diagnosis: VACCINE FOR TDAP[ICD10: Z23] [facility]: 13228 02/27/2014 ([id number]) OFFICE/OUTPATIENT VISIT EST Diagnosis: Seborrheic keratoses, inflamed[ICD9: 702.11] Diagnosis: ACTINIC KERATOSIS[ICD9: 702.0] Diagnosis: INSOMNIA NOS[ICD9: 780.52] María Elena [facility] CPT-4: 73985 01/13/2014 OFFICE/OUTPATIENT VISIT EST Diagnosis: EUSTACHIAN TUBE DYSFUNCTION[ICD9: 381.81] Diagnosis: ALLERGIC RHINITIS[ICD9: 477.9] Diagnosis: Serous otitis media[ICD9: 381.4] María Elena [facility] CPT-4: 97997 12/24/2013 ([id number]) OFFICE/OUTPATIENT VISIT EST Diagnosis: SINUSITIS, ACUTE[ICD9: 461.9] Diagnosis: ALLERGIC RHINITIS[ICD9: 477.9] Diagnosis: EUSTACHIAN TUBE DYSFUNCTION[ICD9: 381.81] [facility]: 80202 11/12/2013 ([id number]) OFFICE/OUTPATIENT VISIT EST Diagnosis: ALLERGIC RHINITIS[ICD9: 477.9] Diagnosis: SINUSITIS, ACUTE[ICD9: 461.9] María Elena [facility] CPT-4: 39121 10/21/2013 ([id number]) OFFICE/OUTPATIENT VISIT EST Diagnosis: ASYMPTOMATIC VARICOSE VEINS[ICD9: 454.9] Diagnosis: INSOMNIA NOS[ICD9: 780.52] María Elena [facility] CPT-4: 82227 09/22/2013 OFFICE/OUTPATIENT VISIT EST Diagnosis: SINUSITIS, ACUTE[ICD9: 461.9] June Sandra [facility] CPT-4: 70853 08/27/2013 ([id number]) OFFICE/OUTPATIENT VISIT EST Diagnosis: CEPHALGIA[ICD9: 784.0] Diagnosis: CEPHALGIA, TENSION[ICD9: 307.81] 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] María Elena [facility] CPT-4: 72972 08/04/2013 ([id number]) OFFICE/OUTPATIENT VISIT EST Diagnosis: Cervicalgia[ICD9: 723.1] Diagnosis: SPASM OF MUSCLE[ICD9: 728.85] Diagnosis: CEPHALGIA, TENSION[ICD9: 307.81] María Elena [facility] CPT-4: 50048 07/23/2013 ([id number]) OFFICE/OUTPATIENT VISIT EST 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] Diagnosis: ALLERGIC RHINITIS[ICD9: 477.9] María Elena [facility] CPT-4: 81254 06/23/2013 ([id number]) OFFICE/OUTPATIENT VISIT EST Diagnosis: ALLERGIC RHINITIS[ICD9: 477.9] Diagnosis: ACUTE SEROUS OTITIS MEDIA[ICD9: 381.01] 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] María Elena APPIAH [facility] CPT-4: 23381 05/26/2013 ([id number]) OFFICE/OUTPATIENT VISIT EST Diagnosis: HYPERTENSION[ICD9: 401.9] Diagnosis: EDEMA[ICD9: 782.3] Diagnosis: Serous otitis media[ICD9: 381.4] María Elena JUARES AlanJj [facility] C[facility]: 89725 04/16/2013 ([id number]) OFFICE/OUTPATIENT VISIT EST Diagnosis: SINUSITIS, ACUTE[ICD9: 461.9] Diagnosis: ALLERGIC RHINITIS[ICD9: 477.9] Diagnosis: EDEMA[ICD9: 782.3] Diagnosis: Thyromegaly[ICD9: 240.9] Diagnosis: MALAISE AND FATIGUE[ICD9: 780.79] María Elena Lopez Fabiola [facility] CPT-[facility]: 05662 03/05/2013 ([id number]) OFFICE/OUTPATIENT VISIT EST Diagnosis: PAIN, LOWER BACK[ICD9: 724.2] Diagnosis: SPASM OF MUSCLE[ICD9: 728.85] María Elena JUARES AlanJj [facility]: 89820 12/23/2012 OFFICE/OUTPATIENT VISIT EST Diagnosis: Low back pain[ICD9: 724.2] Lashawn Hicks KRISTYN [facility] CPT-4: 65553 12/16/2012 ([id number]) OFFICE/OUTPATIENT VISIT EST Diagnosis: PAIN, LOWER BACK[ICD9: 724.2] Diagnosis: SCIATICA[ICD9: 724.3] Diagnosis: Lumbar herniated disc[ICD9: 722.10] María Elena COLON AlanJj [facility] CPT-4: 77374 12/09/2012 ([id number]) OFFICE/OUTPATIENT VISIT EST Diagnosis: PAIN, LOWER BACK[ICD9: 724.2] Diagnosis: SCIATICA[ICD9: 724.3] Diagnosis: LUMBAR DISC DISPLACEMENT[ICD9: 722.10] María Elena MARIN AlanJj [facility] CPT-4: 84694 12/04/2012 OFFICE/OUTPATIENT VISIT EST Diagnosis: Pneumonia[ICD9: 486] Mary JUARES AlanJj [facility] CPT-4: 96604 11/22/2012 ([id number]) OFFICE/OUTPATIENT VISIT EST Diagnosis: PNEUMONIA, ORGANISM[ICD9: 486] Diagnosis: Exacerbation of RAD (reactive airway disease)[ICD9: 493.92] María Elenamarcella APPIAH DO [facility] CPT-4: 92959 11/21/2012 OFFICE/OUTPATIENT VISIT EST Diagnosis: HYPERTENSION[ICD9: 401.9] Diagnosis: Cephalgia[ICD9: 784.0] Lashawn [facility]H DO [facility] CPT-4: 64912 10/29/2012 ([id number]) OFFICE/OUTPATIENT VISIT EST Diagnosis: MALAISE AND FATIGUE[ICD9: 780.79] Diagnosis: ARTHRALGIA-MULTIPLE SITES[ICD9: 719.49] María Elena APPIAH DO [facility] CPT-4: 23535 10/14/2012 ([id number]) OFFICE/OUTPATIENT VISIT EST Diagnosis: URINARY FREQUENCY[ICD9: 788.41] María Elena APPIAH DO [facility] CPT-4: 89507 09/27/2012 ([id number]) OFFICE/OUTPATIENT VISIT EST Diagnosis: MALAISE AND FATIGUE[ICD9: 780.79] Diagnosis: ARTHRALGIA-MULTIPLE SITES[ICD9: 719.49] María Elena APPIAH DO [facility] CPT-4: 21597 09/25/2012 ([id number]) OFFICE/OUTPATIENT VISIT EST Diagnosis: SINUSITIS, ACUTE[ICD9: 461.9] Diagnosis: EUSTACHIAN TUBE DYSFUNCTION[ICD9: 381.81] María Elena APPIAH DO [facility] CPT-4: 17454 08/29/2012 OFFICE/OUTPATIENT VISIT EST Diagnosis: ACTINIC KERATOSIS[ICD9: 702.0] Diagnosis: Inflamed seborrheic keratosis[ICD9: 702.11] Diagnosis: Skin cancer of face[ICD9: 173.31] Diagnosis: HYPERTENSION[ICD9: 401.9] María Elena Waymindivictorino ValdesJj [facility] CPT-4: 61024 08/12/2012 ([id number]) OFFICE/OUTPATIENT VISIT EST Diagnosis: ARTHRALGIA-MULTIPLE SITES[ICD9: 719.49] Diagnosis: GOUT[ICD9: 274.9] Diagnosis: HYPERTENSION[ICD9: 401.9] Diagnosis: Tachycardia[ICD9: 785.0] María Elenagael MONTEROQUELINE AlanJj FRITZ REDDY [facility] CPT-4: 69917 05/06/2012 ([id number]) OFFICE/OUTPATIENT VISIT EST Diagnosis: INSOMNIA NOS[ICD9: 780.52] María Elena Seamusdawn JUARES AlanJj KRISTYN PANDYA [facility] CPT-4: 92821 04/03/2012 ([id number]) OFFICE/OUTPATIENT VISIT EST Diagnosis: INSOMNIA NOS[ICD9: 780.52] Diagnosis: HYPERTENSION[ICD9: 401.9] Diagnosis: MIGRAINE NOS/NOT INTRCBL[ICD9: 346.90] María Elena MARIN AlanJj TD [facility] CPT-4: 98918 03/19/2012 ([id number]) OFFICE/OUTPATIENT VISIT EST Diagnosis: CELLULITIS[ICD9: 682.9] Diagnosis: Ankle pain[ICD9: 719.47] Diagnosis: HYPERTENSION[ICD9: 401.9] María Elena Seamusdawn JUARES AlanJj [facility] MOJICARose Mary [facility] CPT-4: 89053 02/20/2012 ([id number]) OFFICE/OUTPATIENT VISIT EST Diagnosis: MIGRAINE NOS/NOT INTRCBL[ICD9: 346.90] Diagnosis: Vomiting[ICD9: 787.03] María Elenamarcella JUARES AlanJj [facility] Rose Mary [facility] CPT-4: 58518 01/30/2012 ([id number]) OFFICE/OUTPATIENT VISIT EST Diagnosis: EDEMA[ICD9: 782.3] Diagnosis: HYPERTENSION[ICD9: 401.9] Diagnosis: ALLERGIC RHINITIS[ICD9: 477.9] Diagnosis: ARTHRALGIA-MULTIPLE SITES[ICD9: 719.49] María Elena REED AlanJj [facility] CPT-4: 32377 01/24/2012 ([id number]) OFFICE/OUTPATIENT VISIT EST Diagnosis: SPASM OF MUSCLE[ICD9: 728.85] Diagnosis: Thoracic back pain[ICD9: 724.1] Diagnosis: Cervical pain[ICD9: 723.1] María Elena Hicks KRISTYN PANDYA [facility] CPT-4: 39636 01/10/2012 OFFICE/OUTPATIENT VISIT EST Diagnosis: PAIN, LOWER BACK[ICD9: 724.2] Diagnosis: LUMBAR DISC DISPLACEMENT[ICD9: 722.10] María Elena MARIN AlanJj [facility] CPT-4: 94434 12/11/2011 OFFICE/OUTPATIENT VISIT EST Diagnosis: MIGRAINE NOS/NOT INTRCBL[ICD9: 346.90] Diagnosis: SINUSITIS, ACUTE[ICD9: 461.9] María Elena MONTEROQUELINE AlanJj TD [facility] CPT-4: 75432 11/09/2011 OFFICE/OUTPATIENT VISIT EST Diagnosis: MIGRAINE NOS/NOT INTRCBL[ICD9: 346.90] Diagnosis: LYMPHADENOPATHY[ICD9: 785.6] María Elena ELLISLINE AlanJj TD [facility] CPT-4: 72713 09/13/2011 OFFICE/OUTPATIENT VISIT EST Diagnosis: MALAISE AND FATIGUE[ICD9: 780.79] Diagnosis: ARTHRALGIA-MULTIPLE SITES[ICD9: 719.49] María Elena Seamusdawn MONTERO APARNAGAEL AlanJj [facility] CPT-4: 91659 08/31/2011 OFFICE/OUTPATIENT VISIT EST Diagnosis: SINUSITIS, ACUTE[ICD9: 461.9] María Elena Oredawn JUARES AlanJj [facility] CPT-4: 18591 07/20/2011 OFFICE/OUTPATIENT VISIT EST Diagnosis: HYPERTENSION[ICD9: 401.9] Diagnosis: PAIN, LOWER BACK[ICD9: 724.2] Diagnosis: SPASM OF MUSCLE[ICD9: 728.85] María Elena Appiah MARÍA ELENA AlanJj TD [facility] CPT-4: 26163 07/06/2011 OFFICE/OUTPATIENT VISIT EST Diagnosis: MIGRAINE NOS/NOT INTRCBL[ICD9: 346.90] Diagnosis: HYPERTENSION[ICD9: 401.9] María Elena Seamusdawn Hicks SEAMUS DAWN [facility] CPT-4: 25892 05/22/2011 OFFICE/OUTPATIENT VISIT EST Diagnosis: SINUSITIS, ACUTE[ICD9: 461.9] Diagnosis: MIGRAINE NOS/NOT INTRCBL[ICD9: 346.90] Diagnosis: Dehydration[ICD9: 276.51] Diagnosis: Vomiting[ICD9: 787.03] María Elena Hicks [facility] CPT-4: 29900 05/09/2011 ([id number]) OFFICE/OUTPATIENT VISIT EST María Elena Orender [facility] CPT-4: 65414 02/14/2011 ([id number]) OFFICE/OUTPATIENT VISIT EST María Elena Ortaer [facility] CPT-4: 24616 02/03/2011 ([id number]) OFFICE/OUTPATIENT VISIT EST María Elenamarcella Ortaer [facility] CPT-4: 19946 01/31/2011 ([id number]) OFFICE/OUTPATIENT VISIT EST María Elenamarcella Ortaer [facility] CPT-4: 62279 01/25/2011 ([id number]) OFFICE/OUTPATIENT VISIT EST María Elenamarcella Orater [facility] CPT-4: 76833 01/18/2011 ([id number]) OFFICE/OUTPATIENT VISIT EST María Elena Ortaer [facility] CPT-4: 90133 11/29/2010 ([id number]) OFFICE/OUTPATIENT VISIT, EST María Elena Ortaer [facility] CPT-4: 52495 10/10/2010 ([id number]) OFFICE/OUTPATIENT VISIT, EST María Elenamarcella Ortaer [facility] CPT-4: 88625 06/07/2010 ([id number]) OFFICE/OUTPATIENT VISIT, EST María Elena Ortaer [facility] CPT-4: 03914 04/27/2010 ([id number]) OFFICE/OUTPATIENT VISIT, EST María Elena MONTERO [facility] CPT-4: 41645 04/05/2010 ([id number]) OFFICE/OUTPATIENT VISIT, EST María Elenamarcella Orater [facility] CPT-4: 51986 03/09/2010 ([id number]) OFFICE/OUTPATIENT VISIT, EST María Elenamarcella Ortaer [facility] CPT-4: 64169 03/03/2010 ([id number]) OFFICE/OUTPATIENT VISIT, EST María Elena Ortaer [facility] CPT-4: 61568 01/17/2010 ([id number]) PREV VISIT, EST, AGE 40-64 María Elena MONTEROMICHAEL ValdesJj APPIAH DO [facility] CPT-4: 69332 12/27/2009 Plan of Care Planned Activity Notes Codes Status Date Appointment: María Elena Appiahtel: [facility] [place] Won't have the new insurance [...] 05/28/2019 Appointment: María Elena Appiah WPtel: [address] [place], [place] [phone] [place] FOLLOW UP 05/28/2019 Appointment: María Elena Appiah WPtel: [address] [place], [place] [phone] [place] BP CHECK 05/19/2019 Visit Diagnosis Plan: [...] 01/22/2019 Appointment: María Elena Appiah WPtel: [address] [place], [place] [phone] [place] FOLLOW UP 01/22/2019 Patient Education: estradiol- [employer] Coupon [id number] [email or web address]/[email or web address] Completed 01/22/2019 Appointment: María Elena Appiah WPtel: [address] [place], [place] [phone] [place] CANCELED 01/20/2019 Appointment: María Elena Appiah WPtel: [address] [place], [place] [phone] [place] LM NO SHOW 01/06/2019 Appointment: María Elena Appiah WPtel: [address] [place], [place] [phone] [place] CANCELED 10/17/2018 Appointment: María Elena Appiah WPtel: [address] [place], [place] [phone] [place] BP CHECK 10/09/2018 Visit Diagnosis Plan: [...] 09/30/2018 Appointment: María Elena Appiah WPtel: [address] [place], [place] [phone] [place] FOLLOW UP 09/30/2018 Visit Diagnosis Plan: [...] F51.01 08/27/2018 Appointment: María Elena pApiah WPtel: [address] [place] [address] ACUTE ILLNESS 08/27/2018 Appointment: María Elena Appiah WPtel: [address] [place] [address] [place] Patient stated she went out to [...] Tyle... 08/09/2018 Appointment: María Elena Appiah WPtel: [address] [place] [address] ACUTE ILLNESS 08/09/2018 Appointment: María Elena Appiah WPtel: [address] [place] [address] NO SHOW 08/08/2018 Visit Diagnosis Plan: Anxiety [...] 07/22/2018 Appointment: María Elena Appiah WPtel: [phone] [facility] ACUTE ILLNESS 07/22/2018 Appointment: María Elena Appiah WPtel: [phone] [facility] [place] INJECTION 06/19/2018 Patient Education: Patient [...] : L03.031 06/17/2018 Appointment: Kathleen Zuniga [address] [place] [address] ACUTE ILLNESS 06/17/2018 Patient Education: Patient Medication [...] ICD-10 : B02.9 05/16/2018 Appointment: Kathleen Zuniga [address] [place] [address] ACUTE ILLNESS 05/16/2018 Patient Education: Patient Medication [...] : L03.115 03/20/2018 Appointment: Kathleen Zuniga [address] [phone] FOLLOW UP 03/20/2018 Patient Education: Patient Medication [...] ICD-10 : L03.115 03/18/2018 Appointment: Kathleen Zuniga [address] [place], [place] [address] FOLLOW UP 03/18/2018 Patient Education: Patient Medication [...] 03/15/2018 Appointment: Kathleen Zuniga [address] [phone] ACUTE ILLNESS 03/15/2018 Patient Education: Patient Medication [...] : J01.90 02/11/2018 Appointment: Kathleen Zuniga [address] [place] [address] ACUTE ILLNESS 02/11/2018 Patient Education: Patient Medication Summary Completed 02/11/2018 Appointment: María Elena Appiah WPtel: [phone] [place] [address] [place] INJECTION 02/01/2018 Patient Education: Patient Medication [...] M51.16 01/30/2018 Appointment: Kathleen Zuniga Rose MaryJj [address] [place] [address] ACUTE ILLNESS 01/30/2018 Patient Education: Patient Medication [...] E11.65 12/18/2017 Appointment: María Elena Appiah WPtel: [facility] Annual Well Visit 12/18/2017 Patient Education: Patient Medication Summary Completed 12/18/2017 Care Plan: Referral Order SNOMED-CT : [id number] Pending 12/18/2017 Appointment: María Elena Appiah WPtel: [facility]8 [facility] [place] INJECTION 12/10/2017 Patient Education: [...] : L03.031 12/07/2017 Appointment: Kathleen Zuniga [address] [place], [place] [phone] ACUTE ILLNESS 12/07/2017 Patient Education: Patient Medication [...] : J01.00 10/08/2017 Appointment: Kathleen Zuniga [address] [facility] ACUTE ILLNESS 10/08/2017 Patient Education: Patient Medication Summary Completed 10/08/2017 Appointment: María Elena Appiah WPtel: [phone] [id number] [place] INJECTION 09/21/2017 Patient Education: Patient Medication [...] : R06.83 09/20/2017 Appointment: Kathleen Zuniga [address] [facility] ACUTE ILLNESS 09/20/2017 Patient Education: Patient [...] ICD-10 : L60.0 08/29/2017 Appointment: Kathleen Zuniga [address] [place] [address] OFFICE SURGERY 08/29/2017 Patient Education: Patient Medication Summary Completed 08/29/2017 Visit Diagnosis Plan: Actinic keratosis Discussion: Cr yotherapy as above ICD-9 : 702.0 ICD-10 : L57.0 08/01/2017 Appointment: María Elena Appiah WPtel: [address] [place] [address] OFFICE SURGERY 08/01/2017 Patient Education: Patient Medication Summary Completed 08/01/2017 Appointment: María Elena Appiah WPtel: [address] [place] [address] PATIENT THOUGHT APPOINTMENT WAS TOMORROW 07/26/17 CALLED 15 MINUTES BEFORE APPT TO SAY SHE DIDN'T HAVE ANYONE TO COVER HER BUSINESS AND WOULD NOT MAKE IT NO SHOW 07/25/2017 Visit Diagnosis Plan: Cellulitis of left toe Discussio n: Clindamycin and notify if worsening or persistis ICD-9 : 681.10 ICD-10 : L03.032 07/19/2017 Appointment: María Elena Appiah WPtel: [address] [place] [address] MEDICATION REVIEW 07/19/2017 Patient Education: Patient Medication Summary Completed 07/19/2017 Appointment: María Elena Appiah WPtel: [address] [place] [address] CANCELED 07/04/2017 Visit Diagnosis Plan: Generalized hyperhidrosis Discus ian: CBC, CMP, TSH, free T4 ordered to assess. will review labs. ICD-9 : 780.8 ICD-10 : R61 06/27/2017 Visit Diagnosis Plan: Chronic sinusitis, unspecified D iscussion: Referral sent to dr. albarado in [place] per patient request. patient has been treated multiple times for sinus infections with no recovery. patient was seen by dr sanchez in the past with no interventions. patient has deviated septum which may be affecting her sinuses. 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, including hip Discussion: Shave removal of above lesio n--sent to pathology ICD-9 : 216.7 ICD-10 : D23.72 01/24/2017 Appointment: María Elena [facility]iah [facility]Ptel[facility] [phone] [facility] 01/23 confirmed ~ OFFICE SURGERY 01/24/2017 Patient Education: Patient Medication Summary Completed 01/24/2017 Appointment: Loan Sánchez [address] [place], [place] [id number] 01/09 rescheduled~sl RESCHEDULED 01/15/2017 Visit Diagnosis Plan: [...] L81.4 12/13/2016 Appointment: María Elena Appiah WPtel: [address] [place] [id number] 12/12 confirmed ~ MEDICATION REVIEW 12/13/2016 Patient Education: Patient Medication Summary Completed 12/13/2016 Appointment: María Elena Appiah WPtel: [address] [place], [place] [phone] [place] rescheduled for 12/13/16 at 11am RESCHEDULED 0 12/06/2016 Appointment: María Elena Appiah WPtel: [address] [place], [place] [phone] [place] CANCELED 11/23/2016 Patient Education: Patient Medication [...] F51.01 11/01/2016 Appointment: María Elena Appiah WPtel: [address] [place], [place] [phone] [place] 10/31 lm `sl 11/01 lm`sl MEDICATION REVIEW 017 Patient Education: Patient Medication Summary Completed 11/01/2016 Referral: Canelo Overton WPtel: [phone] [id number] [place] Referral Initiated 10/30/2016 Visit Diagnosis Plan: [...] 10/17/2016 Appointment: María Elena Appiah WPtel: [address] [place], [place] [phone] 10/16 confirmed ~sl PAP 10/17/2016 Patient Education: Patient Medication Summary Completed 10/17/2016 Care Plan: MAMMOGRAM SCREENING LOINC : 2 6347-5 Pending 10/17/2016 Visit Diagnosis Plan: Other seasonal allergic rhinitis Discussion: Decadron/Garamycin Nasal [place] Mix Too soon for steroid Retry zyrtec 10mg daily ICD-9 : 477.9 ICD-10 : J30.2 10/10/2016 Appointment: María Elena Appiah WPtel: [address] [place], [place] [phone] [place] FOLLOW UP 10/10/2016 Patient Education: Patient Medication Summary Completed 10/10/2016 Appointment: María Elena Appiah WPtel: [address] [place], [place] [id number] [place] 10/02 reschedule `sl RESCHEDULED 10/02/2016 Visit Plan: See surgery for removal of n ew left arm lesion and right foot lesion Lyrica to use next month for left arm paresthesias Continue current meds Discussed sunscreen/sunblock combo 09/19/2016 Appointment: María Elena Appiah WPtel: [address] [place], [place] [phone] 09/18 confirmed ~sl FOLLOW UP 09/19/2016 Patient Education: Patient Medication Summary Completed 09/19/2016 Patient Education: Patient Medication Summary Completed 09/18/2016 Care Plan: MAMMOGRAM BOTH BREASTS LOINC : 55948-0 Pending 09/18/2016 Visit Plan: Discussed that needs [...] sinuses 08/24/2016 Appointment: María Elena Appiah WPtel: [address] [place] [address] ACUTE ILLNESS 08/24/2016 Patient Education: Patient Medication Summary Completed 08/24/2016 Patient Education: Patient Medication Summary Completed 08/23/2016 Care Plan: MAMMOGRAM SCREENING LOINC : 2 6347-5 Pending 08/23/2016 Visit Plan: Finish doxycycline Add Breo 100/25 1 p BID for 2 weeks If not improving within next 2 days will get CXR 08/16/2016 Appointment: María Elena Appiah WPtel: [address] [place], [place] [phone] ACUTE ILLNESS 08/16/2016 Patient Education: Patient Medication Summary Completed 08/16/2016 Visit Plan: Supportive care. Rest, Fluid s, Tylenol/Motrin prn fever or bodyaches. Notify if worsening symptoms. Doxycyline and Prednisone 08/10/2016 Appointment: María Elena Appiah WPtel: [address] [place], [place] [phone] 08/09 lm`sl....confirmed-sp FOLLOW UP 09/2015 Patient Education: Patient Medication Summary Completed 08/10/2016 Visit Plan: Saline nasal flushes prn. Ty lenol/Motrin prn headache. Notify if persists/symptoms worsening. Dexamethasone 8mg IM today May use coricedan and mucinex 08/02/2016 Appointment: María Elena Appiah WPtel: [address] [place] [address] ACUTE ILLNESS 08/02/2016 Patient Education: Patient Medication Summary Completed 08/02/2016 Visit Plan: Cryotherapy as above and lef t forearm lesion removal as above with 5-0 punch biopsy and sent to path Return in 10 days for suture removal 08/01/2016 Appointment: María Elena Appiah WPtel: [address] [place], [place] [phone] 07/31 confirmed`~ OFFICE SURGERY 08/01/2016 Patient Education: Patient Medication Summary Completed 08/01/2016 Visit Plan: Stop clindamycin Check CBC, CMP, ESR now/STAT 07/27/2016 Appointment: María Eelna Appiah WPtel: [address] [place] [address] ACUTE ILLNESS 07/27/2016 Patient Education: Patient Medication Summary Completed 07/27/2016 Visit Plan: Update lab and check ABIs to start with Will likely need cardiology evaluation to rule out PVD Clindamycin for 10 days Daily yogurt or probiotic Will return for removal of left arm lesions 07/20/2016 Appointment: María Elena Appiah WPtel: [address] [place], [place] [phone] ACUTE ILLNESS 07/20/2016 Patient Education: Patient Medication Summary Completed 07/20/2016 Patient Education: Patient Medication Summary Completed 07/20/2016 Care Plan: MAMMOGRAM BOTH BREASTS LOINC : 57113-7 Pending 07/20/2016 Care Plan: US EXAM CHEST LOINC : 15874-0 Pending 07/20/2016 Visit Plan: Wound culture collected from left great toe Appearance is somewhat staph like Rx as above Wound cleanser and skin care reviewed May need to add oral antibiotic if sores do not heal or continue to reoccur 07/06/2016 Appointment: Loan Sánchez [address] [place] [address] ACUTE ILLNESS 07/06/2016 Patient Education: Patient Medication Summary Completed 07/06/2016 Appointment: María Elena Appiah WPtel: [address] [place] [address] [place] INJECTION 05/25/2016 Patient Education: Patient Medication Summary Completed 05/25/2016 Visit Plan: Saline nasal flushes prn. Ty lenol/Motrin prn headache. Notify if persists/symptoms worsening. Dexamethasone and Rocephin given 04/26/2016 Appointment: María Elena Appiah WPtel: [address] [place] [address] ACUTE ILLNESS 04/26/2016 Patient Education: Patient Medication Summary Completed 04/26/2016 Visit Plan: Check CBC, CMP, TSH, FreeT4, HbA1C, estradiol, lipids in AM 03/02/2016 Appointment: María Elena Appiah WPtel: [address] [place] [address] 03/01 lm~sl ACUTE ILLNESS 03/02/2016 Patient Education: Patient Medication Summary Completed 03/02/2016 Visit Plan: Exam is nearly normal Needs to be taking daily antihistamine Would prefer to use oral steroids instead of shot but patient insist that oral steroids cause horrible headaches for her Will given kenalog IM instead 02/09/2016 Appointment: Loan Sánchez [address] [place] [address] ACUTE ILLNESS 02/09/2016 Patient Education: Patient Medication Summary Completed 02/09/2016 Visit Plan: Culture urine Macrobid DC xa nax Trial of Ativan 1mg q HS 01/24/2016 Appointment: María Elena Appiah WPtel: [address] [place] [address] ACUTE ILLNESS 01/24/2016 Patient Education: Patient Medication Summary Completed 01/24/2016 Visit Plan: No steroid or rocephin injec tion warranted Can have oral prednisone Continue current home regimen Needs to follow up with Dr Sanchez if problems persist 12/23/2015 Appointment: Loan Sánchez [address] [place], [place] [phone] ACUTE ILLNESS 12/23/2015 Patient Education: Patient Medication Summary Completed 12/23/2015 Visit Plan: Saline nasal flushes prn. Ty lenol/Motrin prn headache. Notify if persists/symptoms worsening. Kenalog 40mg IM today 12/08/2015 Appointment: María Elena Appiah WPtel: [address] [place] [address] 12/06 confirmed~ ACUTE ILLNESS 12/08/2015 Patient Education: Patient Medication Summary Completed 12/08/2015 Appointment: María Elena Appiah WPtel: [address] [place] [address] ACUTE ILLNESS 11/18/2015 Patient Education: Patient Medication Summary Completed 10/11/2015 Appointment: María Elena Appiah WPtel: [address] [place] [address] [place] INJECTION 10/07/2015 Patient Education: Patient Medication Summary Completed 10/07/2015 Visit Plan: Check renal arterial doppler s and ECHO Change amlodopine to lotrel 5/20mg q HS Will need stress test as well Check CMP, uric acid, ESR 10/06/2015 Appointment: María Elena Appiah WPtel: [address] [place] [address] ACUTE ILLNESS 10/06/2015 Patient Education: Patient Medication Summary Completed 10/06/2015 Patient Education: [facility] - [employer]aving [employer] - Amlodipine Besylate - 18-64 - Dynamic Portal ID Completed 10/06/2015 Appointment: María Elena Appiah WPtel: [address] [place] [address] FOLLOW UP 09/22/2015 Visit Plan: Cephalexin 500 mg PO bid Mery ly topical Mupirocin to lesions on left lateral neck and face Follow-up in one week. Sooner if symptoms worsen 09/14/2015 Appointment: June Flores WPtel: [address] [place] [address] ACUTE ILLNESS 09/14/2015 Patient Education: Patient Medication Summary Completed 09/14/2015 Visit Plan: Change bystolic to bedtime d osing and amlodopine to morning dosing Cryotherapy as above to AKs 09/07/2015 Appointment: María Elena Appiah WPtel: [address] [place] [address] 09/06 appointment made and confirmed ~sl FOLLOW UP 09/07/2015 Patient Education: Patient Medication Summary Completed 09/07/2015 Visit Plan: Increase bystolic back to 20 mg daily but will split and take 10mg in AM and 10mg in PM Stress Reducers 08/18/2015 Appointment: María Elena Appiah WPtel: [address] [place] [address] 08/17/15 appt confirmed cn ACUTE ILLNESS 08/18 Patient Education: Patient Medication Summary Completed 08/18/2015 Appointment: María Elena Appiah WPtel: [address] [place] [address] BP CHECK 07/07/2015 Patient Education: Patient Medication Summary Completed 07/07/2015 Appointment: María Elena Appiah WPtel: [address] [place] [address] BP CHECK 06/24/2015 Patient Education: Patient Medication Summary Completed 06/24/2015 Appointment: María Elena Appiah WPtel: [address] [place] [address] BP CHECK 06/21/2015 Patient Education: Patient Medication Summary Completed 06/21/2015 Visit Plan: Lab discussed Continue curre nt meds and lifestyle modification Recheck lab in 6mos 06/16/2015 Appointment: María Elena Appiah WPtel: [address] [place] [address] 06/15 confirmed FOLLOW UP 06/16/2015 Patient Education: Patient Medication Summary Completed 06/16/2015 Patient Education: Patient Medication Summary Completed 06/15/2015 Visit Plan: Increase cymbalta to 60mg q HS Keep clonidine at current dose Recheck 2weeks Change xanax to klonopin 06/02/2015 Appointment: María Elena Appiah WPtel: [address] [place] [address] 06/02 FOLLOW UP 06/02/2015 Patient Education: Patient Medication Summary Completed 06/02/2015 Appointment: María Elena Appiah WPtel: [address] [place] [address] ACUTE ILLNESS 05/24/2015 Visit Plan: Increase clonidine to 0.2mg q HS Add cymbalta 30mg q HS Recheck 2weeks Stress Reducers Check fasting lab Discussed sleep study 05/20/2015 Appointment: María Elena Appiah WPtel: [address] [place] [address] ACUTE ILLNESS 05/20/2015 Patient Education: Patient Medication Summary Completed 05/20/2015 Patient Education: [facility] - Saving [employer] - Cymbalta - 18-64 - Dynamic Portal ID Completed 05/20/2015 Appointment: María Elena Appiah WPtel: [address] [place] [address] BP CHECK 05/19/2015 Patient Education: Patient Medication Summary Completed 05/19/2015 Visit Plan: Topical Bactroban alternatin g with topical betamethasone Recheck 2weeks 05/10/2015 Appointment: María Elena Appiah WPtel: [address] [place] [address] 05/07 vm cn...05/07 appt confirmed OFFICE SURGER Y 05/10/2015 Patient Education: Patient Medication Summary Completed 05/10/2015 Referral: Patrick Chandler WPtel: [place] [address] Referral Initiated 05/04/2015 Visit Plan: Saline nasal flushes prn. Ty lenol/Motrin prn headache. Notify if persists/symptoms worsening. Depomedrol 40mg IM today 03/16/2015 Appointment: María Elena Appiah WPtel: [address] [place] [address] ACUTE ILLNESS 03/16/2015 Patient Education: Patient Medication Summary Completed 03/16/2015 Appointment: María Elena Appiah WPtel: [address] [place] [address] ER Follow UP 03/09/2015 Visit Plan: Cryotherapy to lesions as ab ove 10/27/2014 Appointment: María Elena Appiah WPtel: [address] [place] [address] OFFICE SURGERY 10/27/2014 Patient Education: Patient Medication Summary Completed 10/27/2014 Appointment: June Flores WPtel: [address] [place] [address] ACUTE ILLNESS 09/11/2014 Patient Education: Patient Medication Summary Completed 09/11/2014 Visit Plan: Lab discussed Lipitor 10mg d aily Coenzyme Q-10 400mg daily Vitamin D3 5000u daily Recheck lipids with LFTs in 3mos then fwup 08/31/2014 Appointment: María Elena Appiah WPtel: [address] [place] [address] 08/28 voicemail FOLLOW UP 08/31/2014 Patient Education: Patient Medication Summary Completed 08/31/2014 Appointment: María Elena Appiah WPtel: [address] [place] [address] [place] LAB 08/27/2014 Appointment: María Elena Appiah WPtel: [address] [place] [address] US LAB 08/27/2014 Patient Education: Patient Medication Summary Completed 08/27/2014 Appointment: María Elena Appiah WPtel: [address] [place] [address] ACUTE ILLNESS 07/23/2014 Appointment: María Elena Appiah WPtel: [address] [place], [place] [phone] ACUTE ILLNESS 07/21/2014 Patient Education: Patient Medication Summary Completed 07/21/2014 Visit Plan: Kenalog 40mg IM today Contin ue narendra and jazir Add Flonase 07/15/2014 Appointment: María Elena Appiah WPtel: [address] [place], [place] [id number] ACUTE ILLNESS 07/15/2014 Appointment: María Elena Appiah WPtel: [address] [place], [place] [id number] ACUTE ILLNESS 07/15/2014 Patient Education: Patient Medication Summary Completed 07/15/2014 Visit Plan: Will do metolazone 2.5mg prn with 6 potassium and see if causes as severe cramping Trial of of seroquel XR 50mg q PM with evening meal and let us know how works 05/18/2014 Appointment: María Elena Appiah WPtel: [address] [place], [place] [id number] 05/15 left message FOLLOW UP 05/18/2014 Patient Education: Patient Medication Summary Completed 05/18/2014 Appointment: María Elena Appiah WPtel: [address] [place], [place] [id number] LAB 05/14/2014 Patient Education: Patient Medication Summary Completed 05/14/2014 Appointment: María Elena Appiah WPtel: [address] [place], [place] [phone] [place] INJECTION 04/22/2014 Visit Plan: Rocephin and Kenalog today a nd finish abx given from urgent care 04/21/2014 Appointment: María Elena Appiah WPtel: [address] [place] [address] [place] INJECTION 04/21/2014 Patient Education: Patient Medication Summary Completed 04/21/2014 Appointment: June Flores WPtel: [address] [place] [address] ACUTE ILLNESS 03/04/2014 Patient Education: Patient Medication Summary Completed 03/04/2014 Appointment: María Elena Appiah WPtel: [address] [place] [address] INJECTION 02/27/2014 Patient Education: Patient Medication Summary Completed 02/27/2014 Visit Plan: Cryotherapy as above to all lesions Patient wants to try no meds for insomnia for a while and see how goes 01/13/2014 Appointment: María Elena Appiah WPtel: [address] [place] [address] OFFICE SURGERY 01/13/2014 Patient Education: Patient Medication Summary Completed 01/13/2014 Visit Plan: Stop Melatonin Stop Soma Tri al of trazadone 75mg q HS See ENT for possible tubes as has had chronic ETD and serous otitis media with numerous steroids 12/24/2013 Appointment: María Elena Appiah WPtel: [address] [place] [address] ACUTE ILLNESS 12/24/2013 Patient Education: Patient Medication Summary Completed 12/24/2013 Visit Plan: Saline nasal flushes prn. Ty lenol/Motrin prn headache. Notify if persists/symptoms worsening. 11/12/2013 Appointment: María Elena Appiah WPtel: [address] [place] [address] ACUTE ILLNESS 11/12/2013 Patient Education: Patient Medication Summary Completed 11/12/2013 Appointment: María Elena Appiah WPtel: [address] [place] [address] ACUTE ILLNESS 10/21/2013 Patient Education: Patient Medication Summary Completed 10/21/2013 Visit Plan: Sleep hygiene and sleep rout ine Melatonin 10mg q HS Support stockings and observe 09/22/2013 Appointment: María Elena Appiah WPtel: [address] [place] [address] ACUTE ILLNESS 09/22/2013 Patient Education: Patient Medication Summary Completed 09/22/2013 Appointment: June Flores WPtel: [address] [place] [address] ACUTE ILLNESS 08/27/2013 Patient Education: Patient Medication Summary Completed 08/27/2013 Visit Plan: Proceed with CT scan of head /neck Proceed with occipital nerve injections Butrans 20mcg patch weekly until can get into see Dr. Mcdonough for injections 08/04/2013 Appointment: María Elena Appiah WPtel: [address] [place] [address] FOLLOW UP 08/04/2013 Patient Education: Patient Medication Summary Completed 08/04/2013 Visit Plan: OMT done Daily neck stretche s, moist heat Increase Celebrex to 200mg BID Add flexeril 07/23/2013 Appointment: María Elena Appiah WPtel: [address] [place] [address] 07/22 voicemail FOLLOW UP 07/23/2013 Patient Education: Patient Medication Summary Completed 07/23/2013 Appointment: María Elena Appiah WPtel: [address] [place] [address] ACUTE ILLNESS 06/23/2013 Patient Education: Patient Medication Summary Completed 06/23/2013 Appointment: María Elena Appiah WPtel: [address] [place] [address] ACUTE ILLNESS 05/26/2013 Patient Education: Patient Medication Summary Completed 05/26/2013 Visit Plan: Decrease clonidine to 0.1mg TID If BP remains stable consider decreasing amlodopine Prednisone for 5 days BP check in 1mo 04/16/2013 Appointment: María Elena Appiah WPtel: [address] [place] [address] 04/14 pt called and confirmed appt FOLLOW UP 04/16/2013 Patient Education: Patient Medication Summary Completed 04/16/2013 Appointment: María Elena Appiah WPtel: [address] [place] [address] ACUTE ILLNESS 03/05/2013 Patient Education: Patient Medication Summary Completed 03/05/2013 Visit Plan: Pt has MARIA ELENA on with Dr. Mcdonough Continue Butrans patch Refill Hydrocodone early tomorrow 12/23/2012 Appointment: María Elena Appiah WPtel: [address] [place] [address] FOLLOW UP 12/23/2012 Patient Education: Patient Medication Summary Completed 12/23/2012 Appointment: Lashawn Eckert WPtel: [address] [place] [address] ACUTE ILLNESS 12/16/2012 Patient Education: Patient Medication Summary Completed 12/16/2012 Visit Plan: Proceed with updated MRI of LS spine Continue gabapentin and add soma and diclofenac Will likely need to go for another epidural 12/09/2012 Appointment: María Elena Appiah WPtel: [address] [place] [address] ACUTE ILLNESS 12/09/2012 Patient Education: Patient Medication Summary Completed 12/09/2012 Visit Plan: Injection as above Finish me drol dose pack Chiropracter this afternoon 12/04/2012 Appointment: María Elena Appiah WPtel: [address] [place] [address] ACUTE ILLNESS 12/04/2012 Patient Education: Patient Medication Summary Completed 12/04/2012 Appointment: Mary Tillman WPtel: [address] [place] [address] FOLLOW UP 11/22/2012 Patient Education: Patient Medication Summary Completed 11/22/2012 Appointment: María Elena Appiah WPtel: [address] [place] [address] ACUTE ILLNESS 11/21/2012 Patient Education: Patient Medication Summary Completed 11/21/2012 Appointment: María Elena Appiah WPtel: [address] [place] [address] BP CHECK 11/07/2012 Patient Education: Patient Medication [...] re-check. 10/29/2012 Appointment: Lashawn Eckert WPtel: [address] [place] [address] ACUTE ILLNESS 10/29/2012 Patient Education: Patient Medication Summary Completed 10/29/2012 Appointment: María Elena Appiah WPtel: [address] [place] [address] ACUTE ILLNESS 10/14/2012 Patient Education: Patient Medication Summary Completed 10/14/2012 Appointment: María Elena Appiah WPtel: [address] [place] [address] 09/27/2012 Patient Education: Patient Medication Summary Completed 09/27/2012 Appointment: María Elena Appiah WPtel: [address] [place] [address] ACUTE ILLNESS 09/25/2012 Patient Education: Patient Medication Summary Completed 09/25/2012 Appointment: María Elena Appiah WPtel: [address] [place] [address] BP CHECK 09/24/2012 Appointment: María Elena Appiah WPtel: [address] [place] [address] ACUTE ILLNESS 08/29/2012 Patient Education: Patient Medication Summary Completed 08/29/2012 Visit Plan: Cryotherapy as above See Karlos m for right ear lesion--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 ACUTE ILLNESS 05/06/2012 Patient Education: Patient Medication Summary Completed 05/06/2012 Visit Plan: Pt wants to hold on any furt her sleep medications 04/03/2012 Appointment: María Elena Appiah WPtel: [address] [place] [address] FOLLOW UP 04/03/2012 Patient Education: Patient Medication Summary Completed 04/03/2012 Appointment: María Elena Appiah WPtel: [address] [place] [address] FOLLOW UP 03/19/2012 Patient Education: Patient Medication Summary Completed 03/19/2012 Appointment: María Elena Appiah WPtel: [address] [place] [address] BP CHECK 02/22/2012 Patient Education: Patient Medication Summary Completed 02/22/2012 Appointment: María Elena Appiah WPtel: [address] [place] [address] BP CHECK 02/21/2012 Patient Education: Patient Medication Summary Completed 02/21/2012 Visit Plan: Doxycycline and bactroban fo r foot Supportive care on ankles and knees Add norvasc for BP 02/20/2012 Appointment: María Elena Appiah WPtel: [address] [place] [address] ER Follow UP 02/20/2012 Patient Education: Patient Medication Summary Completed 02/20/2012 Appointment: María Elena Appiah WPtel: [address] [place] [address] ACUTE ILLNESS 01/30/2012 Patient Education: Patient Medication Summary Completed 01/30/2012 Appointment: María Elena Appiahtel: [address] [place] [address] ACUTE ILLNESS 01/24/2012 Patient Education: Patient Medication Summary Completed 01/24/2012 Visit Plan: Daily back stretches, moist heat, Biofreeze prn OMT done 01/10/2012 Appointment: María Elena Appiah WPtel: [address] [place] [address] ACUTE ILLNESS 01/10/2012 Patient Education: Patient Medication Summary Completed 01/10/2012 Appointment: María Elena Appiah WPtel: [address] [place] [address] FOLLOW UP 12/11/2011 Patient Education: Patient Medication Summary Completed 12/11/2011 Appointment: María Elena Appiahtel: [address] [place] [address] ACUTE ILLNESS 11/09/2011 Patient Education: Patient Medication Summary Completed 11/09/2011 Appointment: María Elena Appiahtel: [address] [place] [address] ACUTE ILLNESS 09/13/2011 Patient Education: Patient Medication Summary Completed 09/13/2011 Visit Plan: Check CBC, TSH, Free T4, CMP , ESR, Vit D, B12 now Start Prednisone today 08/31/2011 Appointment: María Elena Appiahtel: [address] [place] [address] ACUTE ILLNESS 08/31/2011 Patient Education: Patient Medication Summary Completed 08/31/2011 Appointment: María Elena Appiah WPtel: [address] [place] [address] [place] INJECTION 07/20/2011 Patient Education: Patient Medication Summary Completed 07/20/2011 Visit Plan: Continue current meds Monite r BP Cont stretches from PT 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 07/06/2011 Appointment: María Elena Appiah WPtel: [address] [place], [place] [id number] [place] FOLLOW UP 07/06/2011 Patient Education: Patient Medication Summary Completed 07/06/2011 Appointment: María Elena Appiah WPtel: [address] [place], [place] [phone] BP CHECK 06/06/2011 Patient Education: Patient Medication Summary Completed 06/06/2011 Visit Plan: Add Bystolic at 2.5mg QAM Ad d Robaxin 750mg 2 po q HS BP check in 2wks 05/22/2011 Appointment: María Elena Appiah WPtel: [address] [place], [place] [id number] FOLLOW UP 05/22/2011 Patient Education: Patient Medication Summary Completed 05/22/2011 Appointment: María Elena Appiah WPtel: [address] [place], [place] [phone] ER Follow UP 05/09/2011 Patient Education: Patient Medication Summary Completed 05/09/2011 Appointment: María Elena Appiah WPtel: [address] [place], [place] [id number] [place] FOLLOW UP 02/22/2011 Visit Plan: Rx written for Hydrocodone 1 0/325mg #240 See Ortho 02/14/2011 Appointment: María Elena Appiah WPtel: [address] [place], [place] [phone] OMT 02/14/2011 Patient Education: Patient Medication Summary [...] work. 02/03/2011 Appointment: Lashawn Eckert WPtel: [address] [place] [address] ACUTE ILLNESS 02/03/2011 Patient Education: Patient Medication Summary Completed 02/03/2011 Visit Plan: OMT done Cont daily stretche s 01/31/2011 Appointment: María Elena Appiah WPtel: [address] [place] [address] ACUTE ILLNESS 01/31/2011 Patient Education: Patient Medication Summary Completed 01/31/2011 Visit Plan: Continue pain meds OMT done Proceed with PT No work this summer01/25/2011 Appointment: María Elena Appiah WPtel: [address] [place] [address] ACUTE ILLNESS 01/25/2011 Patient Education: Patient Medication Summary Completed 01/25/2011 Visit Plan: Start PT Long discussion abo ut getting pain meds from only and can only have max of 4grams of tylenol per day Change to Hydrocodone 10/325mg 1- 2 po TID prn pain--#180 called to Radha 01/18/2011 Appointment: María Elena Appiah WPtel: [address] [place] [address] FOLLOW UP 01/18/2011 Patient Education: Patient Medication Summary Completed 01/18/2011 Visit Plan: Daily back stretches, moist heat, Biofreeze prn 11/29/2010 Appointment: María Elena Appiah WPtel: [address] [place] [address] ER Follow UP 11/29/2010 Patient Education: Patient Medication Summary Completed 11/29/2010 Visit Plan: Saline nasal flushes prn. Ty lenol/Motrin prn headache. Notify if persists/symptoms worsening. Finish augmentin Add Medrol Dose Pack 10/10/2010 Appointment: María Elena Appiah WPtel: [address] [place], [place] [id number] ACUTE ILLNESS 10/10/2010 Patient Education: Patient Medication Summary Completed 10/10/2010 Visit Plan: Cryotherapy x3 to multiple l esions on both forearms 07/19/2010 Appointment: María Elena Appiah WPtel: [address] [place], [place] [phone] OFFICE SURGERY 07/19/2010 Patient Education: Patient Medication Summary Completed 07/19/2010 Appointment: María Elena Appiah WPtel: [address] [place], [place] [phone] [place] BP CHECK 07/06/2010 Patient Education: Patient Medication Summary Completed 07/06/2010 Appointment: María Elena Appiahtel: [address] [place], [place] [phone] [place] BP CHECK 06/30/2010 Patient Education: Patient Medication Summary Completed 06/30/2010 Appointment: María Elena Appiah WPtel: [address] [place], [place] [phone] [place] BP CHECK 06/20/2010 Patient Education: Patient Medication Summary Completed 06/20/2010 Visit Plan: Change Diovan to Exforge 160 /5mg QD OMT done to thoracics BP check in 2wks 06/07/2010 Appointment: María Elena Appiah WPtel: [address] [place], [place] [phone] FOLLOW UP 06/07/2010 Patient Education: Patient Medication Summary Completed 06/07/2010 Appointment: María Elena Appiah WPtel: [address] [place], [place] [phone] [place] BP CHECK 06/03/2010 Patient Education: Patient Medication Summary Completed 06/03/2010 Appointment: María Elena Appiah WPtel: [address] [place], [place] [phone] [place] BP CHECK 06/01/2010 Patient Education: Patient Medication Summary Completed 06/01/2010 Visit Plan: Irritated skin tags to left neck x2 excised at base with scissors and base cauterized 05/30/2010 Appointment: María Elena Appiah WPtel: [address] [place] [address] OFFICE SURGERY 05/30/2010 Patient Education: Patient Medication Summary Completed 05/30/2010 Visit Plan: Saline nasal flushes prn. Ty lenol/Motrin prn headache. Notify if persists/symptoms worsening. Restart Nasonex Has allergy testing set for May 25 04/27/2010 Appointment: María Elena Appiah WPtel: [address] [place] [address] ACUTE ILLNESS 04/27/2010 Patient Education: Patient Medication Summary Completed 04/27/2010 Visit Plan: Saline nasal flushes prn. Ty lenol/Motrin prn headache. Notify if persists/symptoms worsening. Omnaris BID plus injections 04/05/2010 Appointment: María Elena Appiah WPtel: [address] [place] [address] ACUTE ILLNESS 04/05/2010 Patient Education: Patient Medication Summary Completed 04/05/2010 Visit Plan: Saline nasal flushes prn. Ty lenol/Motrin prn headache. Notify if persists/symptoms worsening. 03/09/2010 Appointment: María Elena Appiah WPtel: [address] [place] [address] ACUTE ILLNESS 03/09/2010 Patient Education: Patient Medication Summary Completed 03/09/2010 Visit Plan: Cont Clonidine as is Cont Pr emarin Fwup with surgery as scheduled 03/03/2010 Appointment: María Elena Appiah WPtel: [address] [place] [address] FOLLOW UP 03/03/2010 Patient Education: Patient Medication Summary Completed 03/03/2010 Visit Plan: Check Pelvic US now Dukee tacho Sal C vs Hysterectomy 01/17/2010 Appointment: María Elena Appiah WPtel: [address] [place] [address] ACUTE ILLNESS 01/17/2010 Patient Education: Patient Medication Summary Completed 01/17/2010 Visit Plan: Check fasting lab and schedu le Mammogram 2gm Na Diet Trial of Ambien 10mg qhs Fwup pending lab results 12/27/2009 Appointment: María Elena Appiah WPtel: [phone] [id number] [place] ESTABLISHED PATIENT 12/27/2009 Patient Education: Patient Medication Summary Completed 12/27/2009 Referral: Canelo Overton WPtel: [address] [id number] [place] Referral Initiated Referral: Philipp Flores WPtel: [address] [id number] [place] Referral Appointment Requested Instructions Comment . [...]
--- OUTSIDE RECORDS SUMMARY | 2020-03-13 07:03 | XMS REPORT | CCD ---
Author Author Gale Appiah D.O. Organization [facility] Address [address] [place] [phone] Phone Care Team Providers Care Continuous Improvement Black Belt Name Role Phone María Elena Appiah D.O., PP Unavailable CCM Unavailable Summary Purpose Interface Exchange Family History Family History data not found Social History Social History Element Codes Description Effective Dates Tobacco history SNOMED CT: 084902634 Never smoker 05/22/2011 Allergies, Adverse Reactions, Alerts [...] Instructions duloxetine 60 mg capsule,delayed release RxNorm: 018418 TAKE ONE CAPSULE BY MOUTH DAILY 09/11/2019 No Stop Date Active Lipitor 10 mg tablet RxNorm: 087906 TAKE ONE TABLET BY MOUTH AT BEDTIME 09/11/2019 No Stop Date Active lisinopril 20 mg tablet RxNorm: 656158 TAKE ONE TABLET BY MOUTH DAILY .... THIS REPLACE 10MG TABLETS 09/11/2019 No Stop Date Active triamterene 75 mg-hydrochlorothiazide 50 mg tablet RxNorm: 3 27685 TAKE ONE TABLET BY MOUTH DAILY 09/11/2019 No Stop Date Active allopurinol 300 mg tablet RxNorm: 763434 TAKE ONE TABLET BY LOPEZ TH DAILY 09/11/2019 No Stop Date Active celecoxib 200 mg capsule RxNorm: 210260 TAKE ONE CAPSUL E BY MOUTH TWICE A DAY NEEDED FOR PAIN 09/11/2019 No Stop Date Active clonidine HCl 0.1 mg tablet RxNorm: 428739 TAKE ONE TAB LET BY MOUTH FOUR TIMES A DAY 09/11/2019 No Stop Date Active doxepin 25 mg capsule RxNorm: 7925643 1 Capsule(s) Oral every night at bedtime as needed for sleep 08/21/2019 11/18/2019 Active hydrocodone 10 mg-acetaminophen 325 mg tablet RxNorm: 541615 1-2 Tablet(s) PO TID 08/12/2019 No Stop Date Active as needed for pa in - Previous quantity #240, will start dosing for #180 in April 2011 per Doctor Td. Medrol (Dustin) 4 mg tablets in a dose pack RxNorm: 376154 Tablet(s) Oral As Directed 07/21/2019 No Stop Date Active Premarin 1.25 mg tablet RxNorm: 262063 1 Tablet(s) Oral QD 07/02/20 19 03/28/2020 Active hydrocodone 10 mg-acetaminophen 325 mg tablet RxNorm: 625869 1-2 Tablet(s) PO TID 07/01/2019 08/11/2019 Inactive as needed for pa in - Previous quantity #240, will start dosing for #180 in April 2011 per Doctor Td. gabapentin 300 mg capsule RxNorm: 864620 1 Capsule(s) PO QHS 201809/24/2019 Active celecoxib 200 mg capsule RxNorm: 207538 1 Capsule(s) Or al two times a day as needed for pain 06/27/2019 06/27/2019 Inactive Singulair 10 mg tablet RxNorm: 961673 TAKE ONE TABLET BY MOUTH JOSÉ Y 06/24/2019 No Stop Date Active furosemide 40 mg tablet RxNorm: 415065 TAKE ONE TABLET BY MOUTH EVERY MORNING NEEDED FOR EDEMA . TAKE WITH POTASSIUM 06/24/2019 No Stop Date Active doxepin 25 mg capsule RxNorm: 4136097 TAKE ONE CAPSULE B Y MOUTH EVERY NIGHT AT BEDTIME NEEDED FOR SLEEP 06/24/2019 08/20/2019 Inactive lisinopril 20 mg tablet RxNorm: 301419 TAKE ONE TABLET BY MOUTH DAILY .... THIS REPLACE 10MG TABLETS 06/24/2019 09/10/2019 Inactive nystatin-triamcinolone 100,000 unit/g-0.1 % topical cream Rx Norm: 4582534 1 Application Topical two times a day 06/12/2019 06/19/2019 Inactive apply BID for 1 week nystatin-triamcinolone 100,000 unit/g-0.1 % topical cream Rx Norm: 7284017 1 Application Topical two times a day 06/12/2019 06/11/2019 Inactive apply BID for 1 week hydrocodone 10 mg-acetaminophen 325 mg tablet RxNorm: 225766 1-2 Tablet(s) PO QID as needed for pain MUST LAST 30 DAYS 05/28/2019 06/26/2019 Inactiv e (Response to an electronic controlled substance refill request - RxReferenceNumber: [id number]) baclofen 20 mg tablet RxNorm: 367259 1 Tablet(s) PO TID as needed for muscle spasm 05/19/2019 05/27/2019 Inactive gabapentin 300 mg capsule RxNorm: 616511 1 Capsule(s) PO QHS 201805/27/2019 Inactive lisinopril 20 mg tablet RxNorm: 102463 1 Tablet(s) PO Q D TAKE ONE TABLET BY MOUTH DAILY, REPLACES 10 MG DOSE 05/19/2019 06/23/2019 Inactive doxepin 25 mg capsule RxNorm: 9715869 TAKE ONE CAPSULE B Y MOUTH EVERY NIGHT AT BEDTIME NEEDED FOR SLEEP 05/16/2019 06/14/2019 Inactive lisinopril 20 mg tablet RxNorm: 178236 TAKE ONE TABLET BY MOUTH DAILY, REPLACES 10 MG DOSE 05/16/2019 05/18/2019 Inactive Singulair 10 mg tablet RxNorm: 273447 TAKE ONE TABLET BY MOUTH JOSÉ Y 05/16/2019 06/14/2019 Inactive gabapentin 300 mg capsule RxNorm: 123712 1 Capsule(s) PO QHS 201805/04/2019 Inactive estropipate 1.5 mg tablet RxNorm: 239647 1 Tablet(s) PO QD 05/05/2005/27/2019 Inactive estropipate 1.5 mg tablet RxNorm: 605094 1 Tablet(s) PO QD 05/05/2005/04/2019 Inactive gabapentin 300 mg capsule RxNorm: 885935 1 Capsule(s) PO QHS 201805/18/2019 Inactive hydrocodone 10 mg-acetaminophen 325 mg tablet RxNorm: 216386 1-2 Tablet(s) PO QID as needed for pain MUST LAST 30 DAYS 04/25/2019 05/24/2019 Inactiv e (Response to an electronic controlled substance refill request - RxReferenceNumber: [id number]) metoprolol tartrate 100 mg tablet RxNorm: 633181 TAKE O NE TABLET BY MOUTH TWICE A DAY 04/24/2019 06/22/2019 Inactive cyclobenzaprine 10 mg tablet RxNorm: 001522 TAKE ONE TA BLET BY MOUTH THREE TIMES A DAY NEEDED FOR MUSCLE SPASMS 04/24/2019 05/18/2019 Inactive Lyrica 75 mg capsule RxNorm: 221230 1 Capsule(s) PO QHS 03/25/2019 Inactive Klor-Con 8 mEq tablet,extended release RxNorm: 230092 T FARRUKH ONE TABLET BY MOUTH TWICE A DAY 03/21/2019 05/19/2019 Inactive duloxetine 60 mg capsule,delayed release RxNorm: 242952 TAKE ONE CAPSULE BY MOUTH DAILY 03/21/2019 05/19/2019 Inactive triamterene 75 mg-hydrochlorothiazide 50 mg tablet RxNorm: 3 06174 TAKE ONE TABLET BY MOUTH DAILY 03/21/2019 05/19/2019 Inactive Lipitor 10 mg tablet RxNorm: 647817 TAKE ONE TABLET BY MOUTH AT BEDTIME 03/21/2019 09/10/2019 Inactive clonidine HCl 0.1 mg tablet RxNorm: 357904 TAKE ONE TAB LET BY MOUTH FOUR TIMES A DAY 03/21/2019 05/19/2019 Inactive allopurinol 300 mg tablet RxNorm: 936510 TAKE ONE TABLET BY LOPEZ TH DAILY 03/21/2019 05/19/2019 Inactive hydrocodone 10 mg-acetaminophen 325 mg tablet RxNorm: 006735 1-2 Tablet(s) PO QID as needed for pain MUST LAST 30 DAYS 02/28/2019 03/29/2019 Inactiv e (Response to an electronic controlled substance refill request - RxReferenceNumber: [id number]) furosemide 40 mg tablet RxNorm: 356283 TAKE ONE TABLET BY MOUTH EVERY MORNING NEEDED FOR EDEMA . TAKE WITH POTASSIUM 02/21/2019 03/22/2019 Inactive cyclobenzaprine 10 mg tablet RxNorm: 893082 TAKE ONE TA BLET BY MOUTH THREE TIMES A DAY NEEDED FOR MUSCLE SPASMS 02/21/2019 04/21/2019 Inactive lisinopril 20 mg tablet RxNorm: 990422 TAKE ONE TABLET BY MOUTH DAILY, REPLACES 10 MG DOSE 02/21/2019 05/15/2019 Inactive doxepin 25 mg capsule RxNorm: 8167787 TAKE ONE CAPSULE B Y MOUTH EVERY NIGHT AT BEDTIME NEEDED FOR SLEEP 02/21/2019 05/15/2019 Inactive nystatin 100,000 unit/gram topical cream RxNorm: 765057 APPLY TO AFFECTED AREA(S) TWO TIMES A DAY 02/21/2019 03/22/2019 Inactive estradiol 1 mg tablet RxNorm: 670897 2 Tablet(s) PO QD replaces premarin 01/22/2019 05/04/2019 Inactive lisinopril 20 mg tablet RxNorm: 144178 TAKE ONE TABLET BY MOUTH DAILY, REPLACES 10 MG DOSE 01/20/2019 02/18/2019 Inactive cyclobenzaprine 10 mg tablet RxNorm: 676095 TAKE ONE TA BLET BY MOUTH THREE TIMES A DAY NEEDED FOR MUSCLE SPASMS 01/20/2019 02/18/2019 Inactive metoprolol tartrate 100 mg tablet RxNorm: 078548 TAKE O NE TABLET BY MOUTH TWICE A DAY 01/20/2019 02/18/2019 Inactive cyclobenzaprine 10 mg tablet RxNorm: 637884 TAKE ONE TA BLET BY MOUTH THREE TIMES A DAY NEEDED FOR MUSCLE SPASMS 12/19/2018 01/17/2019 Inactive lisinopril 20 mg tablet RxNorm: 826146 TAKE ONE TABLET BY MOUTH DAILY, REPLACES 10 MG DOSE 12/19/2018 01/17/2019 Inactive duloxetine 60 mg capsule,delayed release RxNorm: 355848 TAKE ONE CAPSULE BY MOUTH DAILY 12/19/2018 01/17/2019 Inactive Lipitor 10 mg tablet RxNorm: 460965 TAKE ONE TABLET BY MOUTH AT BEDTIME 12/19/2018 01/17/2019 Inactive cyclobenzaprine 10 mg tablet RxNorm: 773583 1 Tablet(s) PO TID as needed for muscle spasm 11/19/2018 12/18/2018 Inactive Singulair 10 mg tablet RxNorm: 401523 1 Tablet(s) PO QD 11/19/2018 Inactive lisinopril 20 mg tablet RxNorm: 884179 TAKE ONE TABLET BY MOUTH DAILY, REPLACES 10 MG DOSE 11/15/2018 12/18/2018 Inactive hydrocodone 10 mg-acetaminophen 325 mg tablet RxNorm: 370439 1-2 Tablet(s) PO QID as needed for pain MUST LAST 30 DAYS 11/13/2018 12/12/2018 Inactiv e (Response to an electronic controlled substance refill request - RxReferenceNumber: [id number]) nystatin 100,000 unit/gram topical cream RxNorm: 495471 APPLY TO AFFECTED AREA(S) TWO TIMES A DAY 10/23/2018 11/06/2018 Inactive lisinopril 20 mg tablet RxNorm: 611651 1 Tablet(s) PO QD replac es 10mg dose 10/18/2018 11/14/2018 Inactive hydrocodone 10 mg-acetaminophen 325 mg tablet RxNorm: 600840 1-2 Tablet(s) QID as needed for pain MUST LAST 30 DAYS 10/08/2018 11/06/2018 Inactive (Response to an electronic controlled substance refill request - RxReferenceNumber: [id number]) lisinopril 10 mg tablet RxNorm: 455753 1 Tablet(s) PO QD 10/03/2018 0 01/21/2019 Inactive Celebrex 200 mg capsule RxNorm: 507889 TAKE ONE CAPSULE BY MOUT H TWICE A DAY 09/30/2018 05/04/2019 Inactive cyclobenzaprine 10 mg tablet RxNorm: 045018 TAKE ONE TA BLET BY MOUTH THREE TIMES A DAY NEEDED FOR MUSCLE SPASMS 09/30/2018 11/18/2018 Inactive doxepin 25 mg capsule RxNorm: 0651395 TAKE ONE CAPSULE B Y MOUTH EVERY NIGHT AT BEDTIME NEEDED 09/05/2018 10/16/2018 Inactive omeprazole 40 mg capsule,delayed release RxNorm: 778267 TAKE ONE CAPSULE BY MOUTH DAILY 09/05/2018 01/21/2019 Inactive furosemide 40 mg tablet RxNorm: 502326 TAKE ONE TABLET BY MOUTH EVERY MORNING NEEDED FOR EDEMA . TAKE WITH POTASSIUM 09/05/2018 11/03/2018 Inactive phentermine 37.5 mg tablet RxNorm: 292832 1 Tablet(s) PO QAM 201701/21/2019 Inactive doxepin 25 mg capsule RxNorm: 6146986 1 Capsule(s) PO QH S as needed for sleep TAKE ONE CAPSULE BY MOUTH EVERY NIGHT AT BEDTIME NEEDED 08/27/2018 09/04/2018 Inactive Keflex 500 mg capsule RxNorm: 184151 1 Capsule(s) PO TID 08/09/2018 1 10/19/2017 Inactive Diflucan 100 mg tablet RxNorm: 619144 1 Tablet(s) PO QD 08/09/2018 Inactive Premarin 1.25 mg tablet RxNorm: 909766 2 Tablet(s) PO QD 08/09/2018 0 05/04/2019 Inactive Zofran ODT 4 mg disintegrating tablet RxNorm: 605804 1 Tablet(s) PO Q4H as needed for nausea 08/09/2018 01/21/2019 Inactive metoprolol tartrate 100 mg tablet RxNorm: 069072 TAKE O NE TABLET BY MOUTH TWICE A DAY 2018 10/04/2018 Inactive doxepin 25 mg capsule RxNorm: 9928519 TAKE ONE CAPSULE B Y MOUTH EVERY NIGHT AT BEDTIME NEEDED 2018 08/26/2018 Inactive cyclobenzaprine 10 mg tablet RxNorm: 076846 TAKE ONE TA BLET BY MOUTH THREE TIMES A DAY NEEDED FOR MUSCLE SPASMS 2018 09/29/2018 Inactive hydrocodone 10 mg-acetaminophen 325 mg tablet RxNorm: 631363 1-2 Tablet(s) QID as needed for pain MUST LAST 30 DAYS 07/29/2018 08/27/2018 Inactive (Response to an electronic controlled substance refill request - RxReferenceNumber: [id number]) nystatin 100,000 unit/gram topical powder RxNorm: 716319 Applic ation TOP BID 07/22/2018 08/04/2018 Inactive doxepin 25 mg capsule RxNorm: 7335326 1 Capsule(s) PO QHS as needed 07/22/2018 08/05/2018 Inactive triamterene 75 mg-hydrochlorothiazide 50 mg tablet RxNorm: 3 61044 TAKE ONE TABLET BY MOUTH DAILY 07/05/2018 10/02/2018 Inactive duloxetine 60 mg capsule,delayed release RxNorm: 948745 TAKE ONE CAPSULE BY MOUTH DAILY 07/05/2018 09/02/2018 Inactive Klor-Con 8 mEq tablet,extended release RxNorm: 217439 T FARRUKH ONE TABLET BY MOUTH TWICE A DAY 07/05/2018 10/02/2018 Inactive Lipitor 10 mg tablet RxNorm: 578948 TAKE ONE TABLET BY MOUTH AT BEDTIME 07/05/2018 09/02/2018 Inactive allopurinol 300 mg tablet RxNorm: 520186 TAKE ONE TABLET BY LOPEZ TH DAILY 07/05/2018 10/02/2018 Inactive clonidine HCl 0.1 mg tablet RxNorm: 872121 TAKE ONE TAB LET BY MOUTH FOUR TIMES A DAY 07/05/2018 10/02/2018 Inactive hydrocodone 10 mg-acetaminophen 325 mg tablet RxNorm: 702886 1-2 Tablet(s) QID as needed for pain MUST LAST 30 DAYS 06/28/2018 07/27/2018 Inactive (Response to an electronic controlled substance refill request - RxReferenceNumber: [id number]) MediHoney (calcium alginate-honey) 4" X 5" bandage RxNorm: 1 Application TOP QD 06/17/2018 06/26/2018 Inactive honey-hydrocolloid dressing 4" X 5" RxNorm: 1 Application TOP QD 06/17/2018 07/16/2018 Inactive furosemide 40 mg tablet RxNorm: 452529 TAKE ONE TABLET BY MOUTH EVERY MORNING NEEDED FOR EDEMA . TAKE WITH POTASSIUM 06/10/2018 07/09/2018 Inactive This is a refill request. hydrocodone 10 mg-acetaminophen 325 mg tablet RxNorm: 959596 1-2 Tablet(s) QID as needed for pain MUST LAST 30 DAYS 05/30/2018 06/27/2018 Inactive (Response to an electronic controlled substance refill request - RxReferenceNumber: [id number]) acyclovir 800 mg tablet RxNorm: 270040 1 Tablet(s) PO 5x day 201705/22/2018 Inactive Premarin 1.25 mg tablet RxNorm: 392777 1-2 Tablet(s) PO QD 05/15/2007/13/2018 Inactive cyclobenzaprine 10 mg tablet RxNorm: 384674 1 Tablet(s) PO TID as needed for muscle spasm 05/09/2018 05/08/2018 Inactive Medrol (Dustin) 4 mg tablets in a dose pack RxNorm: 998866 Tablet(s) PO As Directed 05/02/2018 06/16/2018 Inactive hydrocodone 10 mg-acetaminophen 325 mg tablet RxNorm: 538544 1-2 Tablet(s) QID as needed for pain MUST LAST 30 DAYS 04/30/2018 05/29/2018 Inactive (Response to an electronic controlled substance refill request - RxReferenceNumber: [id number]) duloxetine 60 mg capsule,delayed release RxNorm: 479094 TAKE ONE CAPSULE BY MOUTH DAILY 04/16/2018 05/15/2018 Inactive Celebrex 200 mg capsule RxNorm: 263067 TAKE ONE CAPSULE BY MOUT H TWICE A DAY 04/16/2018 06/14/2018 Inactive Singulair 10 mg tablet RxNorm: 965045 TAKE ONE TABLET BY MOUTH JOSÉ Y 04/16/2018 11/19/2018 Inactive Lipitor 10 mg tablet RxNorm: 379170 TAKE ONE TABLET BY MOUTH AT BEDTIME 04/16/2018 05/15/2018 Inactive hydrocodone 10 mg-acetaminophen 325 mg tablet RxNorm: 543434 1-2 Tablet(s) QID as needed for pain MUST LAST 30 DAYS 03/29/2018 04/27/2018 Inactive (Response to an electronic controlled substance refill request - RxReferenceNumber: [id number]) cyclobenzaprine 10 mg tablet RxNorm: 418756 1 Tablet(s) PO TID as needed for muscle spasm 03/18/2018 05/09/2018 Inactive omeprazole 40 mg capsule,delayed release RxNorm: 332372 1 Capsu le(s) PO QD 02/26/2018 08/24/2018 Inactive hydrocodone 10 mg-acetaminophen 325 mg tablet RxNorm: 819318 1-2 Tablet(s) QID as needed for pain MUST LAST 30 DAYS 02/26/2018 03/27/2018 Inactive (Response to an electronic controlled substance refill request - RxReferenceNumber: [id number]) metoprolol tartrate 100 mg tablet RxNorm: 190436 1 Tablet(s) PO BID 02/18/2018 08/05/2018 Inactive Lyrica 75 mg capsule RxNorm: 328433 1 Capsule(s) PO QHS 01/30/2018 Inactive phentermine 37.5 mg tablet RxNorm: 743787 1 Tablet(s) PO QAM 201706/16/2018 Inactive hydrocodone 10 mg-acetaminophen 325 mg tablet RxNorm: 932004 1-2 Tablet(s) QID as needed for pain MUST LAST 30 DAYS 01/29/2018 02/25/2018 Inactive (Response to an electronic controlled substance refill request - RxReferenceNumber: [id number]) Klor-Con 8 mEq tablet,extended release RxNorm: 360369 1 Tablet( s) PO BID 01/14/2018 07/04/2018 Inactive allopurinol 300 mg tablet RxNorm: 124366 1 Tablet(s) PO QD 01/15/2007/04/2018 Inactive Lipitor 10 mg tablet RxNorm: 938181 1 Tablet(s) PO QHS 01/14/201812/2017 Inactive triamterene 75 mg-hydrochlorothiazide 50 mg tablet RxNorm: 3 73896 1 Tablet(s) PO QD 01/14/2018 07/04/2018 Inactive hydrocodone 10 mg-acetaminophen 325 mg tablet RxNorm: 254083 1-2 Tablet(s) QID as needed for pain MUST LAST 30 DAYS 12/27/2017 01/25/2018 Inactive (Response to an electronic controlled substance refill request - RxReferenceNumber: [id number]) Onglyza 5 mg tablet RxNorm: 284479 1 Tablet(s) PO QD 12/18/201701/29 Inactive metformin 500 mg tablet RxNorm: 012431 1 Tablet(s) PO BID 12/11/2017 12/10/2017 Inactive metformin 500 mg tablet RxNorm: 641947 1 Tablet(s) PO BID 12/11/2017 12/17/2017 Inactive furosemide 40 mg tablet RxNorm: 553460 1 Tablet(s) PO Q AM prn edema--take with potassium 12/11/2017 06/08/2018 Inactive cyclobenzaprine 10 mg tablet RxNorm: 461951 1 Tablet(s) PO TID as needed for muscle spasm 12/11/2017 03/18/2018 Inactive hydrocodone 10 mg-acetaminophen 325 mg tablet RxNorm: 016689 1-2 Tablet(s) QID as needed for pain MUST LAST 30 DAYS 10/23/2017 11/21/2017 Inactive (Response to an electronic controlled substance refill request - RxReferenceNumber: [id number]) Lipitor 10 mg tablet RxNorm: 949978 1 Tablet(s) PO QHS 10/16/201703/2018 Inactive cyclobenzaprine 10 mg tablet RxNorm: 389131 1 Tablet(s) PO TID as needed for muscle spasm 10/09/2017 12/10/2017 Inactive hydroxyzine HCl 25 mg tablet RxNorm: 856506 1 Tablet(s) PO BID as needed for anxiety 09/20/2017 01/29/2018 Inactive Effexor XR 75 mg capsule,extended release RxNorm: 115530 1 Caps ule(s) PO QD 09/20/2017 01/29/2018 Inactive metoprolol tartrate 100 mg tablet RxNorm: 953003 1 Tablet(s) PO BID 08/20/2017 02/18/2018 Inactive baclofen 20 mg tablet RxNorm: 472884 1 Tablet(s) PO TID as needed for muscle spasm 08/20/2017 01/21/2019 Inactive clonidine HCl 0.1 mg tablet RxNorm: 119226 1 Tablet(s) PO QID 08/2005/16/2018 Inactive Seroquel 25 mg tablet RxNorm: 371939 1 Tablet(s) PO QHS 08/17/2017 Inactive Seroquel 25 mg tablet RxNorm: 666238 1 Tablet(s) PO QHS 08/17/2017 Inactive Diflucan 100 mg tablet RxNorm: 794874 TAKE ONE TABLET BY MOUTH JOSÉ Y 07/25/2017 08/07/2017 Inactive hydrocodone 10 mg-acetaminophen 325 mg tablet RxNorm: 798659 1-2 Tablet(s) QID as needed for pain MUST LAST 30 DAYS 07/19/2017 08/17/2017 Inactive (Response to an electronic controlled substance refill request - RxReferenceNumber: [id number]) clindamycin 300 mg capsule RxNorm: 352923 1 Capsule(s) PO TID 07/1907/28/2017 Inactive clotrimazole-betamethasone 1 %-0.05 % topical cream RxNorm: 717153 Application TOP BID to elbow rash 07/19/2017 06/16/2018 Inactive Singulair 10 mg tablet RxNorm: 894703 Tablet(s) TAKE ONE TABLET BY MOUTH DAILY 07/18/2017 04/13/2018 Inactive triamterene 75 mg-hydrochlorothiazide 50 mg tablet RxNorm: 3 08327 1 Tablet(s) PO QD 07/18/2017 01/14/2018 Inactive Celebrex 200 mg capsule RxNorm: 099447 Capsule(s) TAKE ONE CAPSULE BY MOUTH TWICE A DAY 07/18/2017 10/15/2017 Inactive hydrocodone 10 mg-acetaminophen 325 mg tablet RxNorm: 116220 1-2 Tablet(s) QID as needed for pain MUST LAST 30 DAYS 06/19/2017 07/18/2017 Inactive (Response to an electronic controlled substance refill request - RxReferenceNumber: [id number]) hydrocodone 10 mg-acetaminophen 325 mg tablet RxNorm: 010276 1-2 Tablet(s) QID as needed for pain MUST LAST 30 DAYS 06/19/2017 06/18/2017 Inactive (Response to an electronic controlled substance refill request - RxReferenceNumber: [id number]) baclofen 20 mg tablet RxNorm: 141003 1 Tablet(s) PO TID as needed for muscle spasm 06/18/2017 08/20/2017 Inactive Medrol (Dustin) 4 mg tablets in a dose pack RxNorm: 982099 Tablet(s) PO As Directed 06/05/2017 07/18/2017 Inactive omeprazole 40 mg capsule,delayed release RxNorm: 962360 1 Capsu le(s) PO QD 04/20/2017 10/16/2017 Inactive Premarin 1.25 mg tablet RxNorm: 096401 1-2 Tablet(s) PO QD 04/11/20 17 05/15/2018 Inactive duloxetine 60 mg capsule,delayed release RxNorm: 401356 1 Capsu le(s) PO QD 04/11/2017 09/19/2017 Inactive furosemide 40 mg tablet RxNorm: 210210 1 Tablet(s) PO Q AM prn edema--take with potassium 04/11/2017 12/11/2017 Inactive Klor-Con 8 mEq tablet,extended release RxNorm: 818184 1 Tablet( s) PO BID 04/11/2017 01/14/2018 Inactive Lipitor 10 mg tablet RxNorm: 148541 1 Tablet(s) PO QHS 04/11/201702/2018 Inactive amlodipine 5 mg-benazepril 20 mg capsule RxNorm: 558223 1 Capsu le(s) PO QD 04/11/2017 01/29/2018 Inactive allopurinol 300 mg tablet RxNorm: 820760 1 Tablet(s) PO QD 04/11/20 17 01/14/2018 Inactive clonidine HCl 0.1 mg tablet RxNorm: 872258 1 Tablet(s) PO QID 04/0508/19/2017 Inactive baclofen 20 mg tablet RxNorm: 197323 1 Tablet(s) PO TID as needed for muscle spasm 04/02/2017 06/18/2017 Inactive Premarin 1.25 mg tablet RxNorm: 660624 1-2 Tablet(s) PO QD 03/20/20 17 04/10/2017 Inactive hydrocodone 10 mg-acetaminophen 325 mg tablet RxNorm: 883380 1-2 Tablet(s) QID as needed for pain MUST LAST 30 DAYS 03/14/2017 01/21/2019 Inactive (Response to an electronic controlled substance refill request - RxReferenceNumber: [id number]) metoprolol tartrate 100 mg tablet RxNorm: 937498 1 Tablet(s) PO BID 02/12/2017 08/20/2017 Inactive hydrocodone 10 mg-acetaminophen 325 mg tablet RxNorm: 891952 1-2 Tablet(s) QID as needed for pain MUST LAST 30 DAYS 02/08/2017 03/09/2017 Inactive (Response to an electronic controlled substance refill request - [facility]: [id number]) metoprolol tartrate 100 mg tablet RxNorm: 498738 TAKE O NE TABLET BY MOUTH TWICE A DAY 01/11/2017 02/12/2017 Inactive metoprolol tartrate 100 mg tablet RxNorm: 792153 1 Tablet(s) PO BID 12/18/2016 12/17/2016 Inactive metoprolol tartrate 100 mg tablet RxNorm: 758667 1 Tablet(s) PO BID 12/18/2016 01/10/2017 Inactive furosemide 40 mg tablet RxNorm: 866633 1 Tablet(s) PO Q AM prn edema--take with potassium 12/13/2016 02/10/2017 Inactive amitriptyline 100 mg tablet RxNorm: 057358 1 Tablet(s) PO QHS 11/2812/12/2016 Inactive baclofen 20 mg tablet RxNorm: 789561 1 Tablet(s) PO TID as needed for muscle spasm 11/14/2016 04/01/2017 Inactive triamterene 75 mg-hydrochlorothiazide 50 mg tablet RxNorm: 3 66437 1 Tablet(s) PO QD 11/14/2016 11/13/2016 Inactive metolazone 2.5 mg tablet RxNorm: 568696 TAKE ONE TABLET BY MOUTH DAILY NEEDED FOR EDEMA 11/14/2016 12/12/2016 Inactive triamterene 75 mg-hydrochlorothiazide 50 mg tablet RxNorm: 3 39415 1 Tablet(s) PO QD 11/14/2016 07/18/2017 Inactive amitriptyline 50 mg tablet RxNorm: 605795 TAKE ONE TABL ET BY MOUTH AT BEDTIME NEEDED FOR SLEEP 11/14/2016 11/27/2016 Inactive Cymbalta 60 mg capsule,delayed release RxNorm: 154899 1 Capsule (s) PO QHS 11/14/2016 12/12/2016 Inactive clonidine HCl 0.1 mg tablet RxNorm: 088652 1 Tablet(s) PO QID 11/1304/04/2017 Inactive amitriptyline 50 mg tablet RxNorm: 404905 1 Tablet(s) P O QHS as needed for sleep 11/01/2016 11/27/2016 Inactive duloxetine 60 mg capsule,delayed release RxNorm: 616076 TAKE ONE CAPSULE BY MOUTH DAILY 10/20/2016 01/17/2017 Inactive allopurinol 300 mg tablet RxNorm: 757544 TAKE ONE TABLET BY LOPEZ TH DAILY 10/20/2016 01/16/2017 Inactive Lyrica 75 mg capsule RxNorm: 888370 TAKE ONE CAPSULE BY MOUTH EVERY NIGHT AT BEDTIME 10/20/2016 12/10/2016 Inactive Klor-Con 8 mEq tablet,extended release RxNorm: 045531 T FARRUKH ONE TABLET BY MOUTH TWICE A DAY 10/20/2016 01/17/2017 Inactive Celebrex 200 mg capsule RxNorm: 436645 TAKE ONE CAPSULE BY MOUT H TWICE A DAY 10/20/2016 07/18/2017 Inactive Bystolic 10 mg tablet RxNorm: 258295 TAKE ONE TABLET BY MOUTH EVERY NIGHT AT BEDTIME 10/20/2016 12/17/2016 Inactive amlodipine 5 mg-benazepril 20 mg capsule RxNorm: 920226 TAKE ONE CAPSULE BY MOUTH EVERY NIGHT AT BEDTIME -- TO REPLACE AMLODOPINE 10/20/20162016 Inactive Lipitor 10 mg tablet RxNorm: 062823 TAKE ONE TABLET BY MOUTH EVERY NIGHT AT BEDTIME 10/20/2016 01/17/2017 Inactive alprazolam 0.5 mg tablet RxNorm: 084076 3 Tablet(s) PO QHS as needed for sleep/anxiety 09/20/2016 10/31/2016 Inactive Tamiflu 75 mg capsule RxNorm: 708128 1 Capsule(s) PO QD 09/19/2016 Inactive Lyrica 75 mg capsule RxNorm: 770309 1 Capsule(s) PO QHS 09/19/2016 Inactive prednisone 20 mg tablet RxNorm: 958384 1 Tablet(s) PO QD 08/10/2016 1 10/17/2015 Inactive doxycycline hyclate 100 mg capsule RxNorm: 3915805 1 Capsule(s) PO BID 08/10/2016 08/19/2016 Inactive Medrol (Dustin) 4 mg tablets in a dose pack RxNorm: 056752 Tablet(s) PO As Directed 07/31/2016 08/22/2016 Inactive Singulair 10 mg tablet RxNorm: 483929 TAKE ONE TABLET BY MOUTH JOSÉ Y 07/27/2016 07/18/2017 Inactive hydrocodone 10 mg-acetaminophen 325 mg tablet RxNorm: 512587 1-2 Tablet(s) QID as needed for pain MUST LAST 30 DAYS 07/26/2016 08/24/2016 Inactive (Response to an electronic controlled substance refill request - RxReferenceNumber: [id number]) alprazolam 0.5 mg tablet RxNorm: 417870 3 Tablet(s) PO QHS as needed for anxiety or sleep 07/26/2016 09/20/2016 Inactive clindamycin 300 mg capsule RxNorm: 763191 1 Capsule(s) PO TID 07/2007/29/2016 Inactive Diflucan 100 mg tablet RxNorm: 186325 1 Tablet(s) PO QD 07/20/2016 Inactive Levaquin 500 mg tablet RxNorm: 066735 1 Tablet(s) PO QD 07/17/2016 Inactive Levaquin 500 mg tablet RxNorm: 974624 1 Tablet(s) PO QD 07/10/2016 Inactive Levaquin 500 mg tablet RxNorm: 926748 1 Tablet(s) PO QD 07/10/2016 Inactive mupirocin 2 % topical ointment RxNorm: 331561 TOP Apply topically to affected areas twice daily 07/06/2016 09/18/2016 Inactive Singulair 10 mg tablet RxNorm: 428158 TAKE ONE TABLET BY MOUTH JOSÉ Y 06/21/2016 01/21/2019 Inactive alprazolam 0.5 mg tablet RxNorm: 897867 TAKE THREE TABL ETS BY MOUTH AT BEDTIME NEEDED FOR SLEEP OR STRESS 05/22/2016 06/20/2016 Inactive triamterene 75 mg-hydrochlorothiazide 50 mg tablet RxNorm: 3 66916 1 Tablet(s) PO QD 04/26/2016 10/21/2016 Inactive Premarin 1.25 mg tablet RxNorm: 492773 1-2 Tablet(s) PO QD 04/26/20 16 03/20/2017 Inactive Klor-Con 8 mEq tablet,extended release RxNorm: 472647 1 Tablet( s) PO BID 04/26/2016 10/19/2016 Inactive Celebrex 200 mg capsule RxNorm: 435230 1 Capsule(s) PO BID TAKE ONE CAPSULE BY MOUTH EVERY DAY 04/26/2016 10/19/2016 Inactive Lipitor 10 mg tablet RxNorm: 069768 1 Tablet(s) PO QHS 04/26/201605/2017 Inactive allopurinol 300 mg tablet RxNorm: 777451 1 Tablet(s) PO QD TAKE ONE TABLET BY MOUTH EVERY DAY 04/26/2016 10/19/2016 Inactive amlodipine 5 mg-benazepril 20 mg capsule RxNorm: 026969 1 Capsule(s) PO QHS replaces amlodopine 04/26/2016 10/19/2016 Inactive duloxetine 60 mg capsule,delayed release RxNorm: 798429 1 Capsu le(s) PO QD 04/26/2016 10/19/2016 Inactive Bystolic 10 mg tablet RxNorm: 521228 1 Tablet(s) PO QHS 04/26/2016 Inactive Singulair 10 mg tablet RxNorm: 149696 1 Tablet(s) PO QD TAKE ONE TABLET BY MOUTH DAILY 04/26/2016 06/20/2016 Inactive clonidine HCl 0.1 mg tablet RxNorm: 389374 1 Tablet(s) PO QID 04/2610/22/2016 Inactive hydrocodone 10 mg-acetaminophen 325 mg tablet RxNorm: 076848 1-2 Tablet(s) QID as needed for pain TAKE ONE TO TWO TABLETS BY MOUTH FOUR TIMES A DAY . MUST LAST 30 DAYS 03/31/2016 04/29/2016 Inactive (Response to an electronic controlled substance refill request - RxReferenceNumber: [id number]) Klor-Con 8 mEq tablet,extended release RxNorm: 984551 T FARRUKH ONE TABLET BY MOUTH TWICE A DAY 03/24/2016 04/22/2016 Inactive prednisone 20 mg tablet RxNorm: 710748 1 Tablet(s) PO QD 03/09/2016 0 03/08/2016 Inactive prednisone 20 mg tablet RxNorm: 514694 1 Tablet(s) PO QD 03/09/2016 0 03/13/2016 Inactive alprazolam 0.5 mg tablet RxNorm: 877638 3 Tablet(s) PO QHS as needed for sleep/stress 03/02/2016 01/21/2019 Inactive mupirocin 2 % topical ointment RxNorm: 386585 TOP twice daily to affected areas of face and neck 02/21/2016 04/25/2016 Inactive clonidine HCl 0.1 mg tablet RxNorm: 244263 TAKE ONE TAB LET BY MOUTH FOUR TIMES A DAY 02/15/2016 03/15/2016 Inactive clonidine HCl 0.1 mg tablet RxNorm: 203278 1 Tablet(s) PO QID 02/1404/25/2016 Inactive Premarin 1.25 mg tablet RxNorm: 069337 1-2 Tablet(s) PO QD 02/15/20 16 03/15/2016 Inactive Klor-Con 8 mEq tablet,extended release RxNorm: 744311 T FARRUKH ONE TABLET BY MOUTH TWICE A DAY 02/15/2016 03/15/2016 Inactive potassium chloride ER 20 mEq tablet,extended release(part/cr yst) RxNorm: 093967 2 Tablet(s) PO BID 02/15/2016 03/15/2016 Inactive Macrobid 100 mg capsule RxNorm: 512530 1 Capsule(s) PO BID 01/24/20 16 01/30/2016 Inactive prednisone 20 mg tablet RxNorm: 976928 Take 3tabs PO QD x 2 days, then 2 tabs PO QD x 2 days, then 1 tab PO QD x 2 days, then 1/2 tab PO QDy x 2 days 12/23/2015 04/25/2016 Inactive Klor-Con 8 mEq tablet,extended release RxNorm: 913267 T FARRUKH ONE TABLET BY MOUTH TWICE A DAY 12/20/2015 02/14/2016 Inactive alprazolam 1 mg tablet RxNorm: 664144 1 1/2 Tablet(s) PO QHS 201501/23/2016 Inactive nystatin 100,000 unit/gram topical cream RxNorm: 130021 APPLY TO AFFECTED AREA(S) TWO TIMES A DAY 11/30/2015 12/14/2015 Inactive Singulair 10 mg tablet RxNorm: 143062 TAKE ONE TABLET BY MOUTH JOSÉ Y 11/18/2015 04/25/2016 Inactive allopurinol 300 mg tablet RxNorm: 981572 1 Tablet(s) PO QD TAKE ONE TABLET BY MOUTH EVERY DAY 10/26/2015 04/22/2016 Inactive Singulair 10 mg tablet RxNorm: 724210 TAKE ONE TABLET BY MOUTH JOSÉ Y 10/26/2015 11/17/2015 Inactive duloxetine 60 mg capsule,delayed release RxNorm: 526684 1 Capsu le(s) PO QD 10/26/2015 04/22/2016 Inactive triamterene 75 mg-hydrochlorothiazide 50 mg tablet RxNorm: 3 02916 1 Tablet(s) PO QD 10/26/2015 11/14/2016 Inactive potassium chloride ER 20 mEq tablet,extended release(part/cr yst) RxNorm: 623297 2 Tablet(s) PO BID 10/26/2015 02/14/2016 Inactive Lipitor 10 mg tablet RxNorm: 525707 1 Tablet(s) PO QHS 10/26/2015 Inactive amlodipine 5 mg-benazepril 20 mg capsule RxNorm: 584814 1 Capsule(s) PO QHS replaces amlodopine 10/26/2015 04/22/2016 Inactive Bystolic 10 mg tablet RxNorm: 807372 1 Tablet(s) PO QHS 10/26/2015 Inactive amlodipine 5 mg-benazepril 20 mg capsule RxNorm: 155172 1 Capsule(s) PO QHS replaces amlodopine 10/06/2015 10/25/2015 Inactive amlodipine 5 mg tablet RxNorm: 935171 1 Tablet(s) PO QHS 09/30/2015 0 04/25/2016 Inactive metolazone 2.5 mg tablet RxNorm: 956709 TAKE ONE TABLET BY MOUTH DAILY NEEDED FOR EDEMA 09/30/2015 01/21/2019 Inactive duloxetine 60 mg capsule,delayed release RxNorm: 682524 1 Capsu le(s) PO QD 09/30/2015 10/25/2015 Inactive cephalexin 500 mg capsule RxNorm: 150535 1 Capsule(s) PO BID 201509/23/2015 Inactive mupirocin 2 % topical ointment RxNorm: 038484 TOP twice daily to affected areas of face and neck 09/14/2015 02/20/2016 Inactive baclofen 20 mg tablet RxNorm: 273347 1 Tablet(s) PO TID as needed for muscle spasm 09/01/2015 11/14/2016 Inactive clonidine HCl 0.1 mg tablet RxNorm: 213918 1 Tablet(s) PO QID 09/0102/14/2016 Inactive alprazolam 1 mg tablet RxNorm: 629873 1 1/2 Tablet(s) PO QHS 201409/09/2015 Inactive baclofen 20 mg tablet RxNorm: 545205 1 Tablet(s) PO TID as needed for muscle spasm 07/23/2015 09/01/2015 Inactive omeprazole 40 mg capsule,delayed release RxNorm: 044507 1 Capsu le(s) PO QD 07/23/2015 04/25/2016 Inactive alprazolam 1 mg tablet RxNorm: 758279 1 1/2 Tablet(s) PO QHS 201408/10/2015 Inactive Bystolic 10 mg tablet RxNorm: 951305 1 Tablet(s) PO BID 06/24/2015 Inactive allopurinol 300 mg tablet RxNorm: 128042 1 Tablet(s) PO QD TAKE ONE TABLET BY MOUTH EVERY DAY 06/23/2015 10/20/2015 Inactive alprazolam 1 mg tablet RxNorm: 670770 1 1/2 Tablet(s) PO QHS 201407/06/2015 Inactive clonidine HCl 0.1 mg tablet RxNorm: 619599 1 Tablet(s) PO QID 06/0209/01/2015 Inactive clonidine HCl 0.1 mg tablet RxNorm: 499951 1 Tablet(s) PO QID 06/0206/01/2015 Inactive Cymbalta 60 mg capsule,delayed release RxNorm: 877854 1 Capsule (s) PO QHS 06/02/2015 08/30/2015 Inactive Cymbalta 60 mg capsule,delayed release RxNorm: 619878 1 Capsule (s) PO QHS 06/02/2015 06/01/2015 Inactive clonidine HCl 0.1 mg tablet RxNorm: 121846 1 Tablet(s) PO TID 05/3106/01/2015 Inactive replaces 0.2mg dose metolazone 2.5 mg tablet RxNorm: 949137 TAKE ONE TABLET BY MOUTH DAILY NEEDED FOR EDEMA 05/21/2015 06/19/2015 Inactive Singulair 10 mg tablet RxNorm: 276159 TAKE ONE TABLET BY MOUTH JOSÉ Y 05/21/2015 10/17/2015 Inactive Cymbalta 30 mg capsule,delayed release RxNorm: 245808 1 Capsule (s) PO QHS 05/20/2015 11/14/2016 Inactive betamethasone valerate 0.1 % topical cream RxNorm: 713475 Appli cation TOP BID 05/10/2015 04/25/2016 Inactive Bactroban 2 % topical ointment RxNorm: 323374 Application TOP BID 0 05/10/2015 06/20/2015 Inactive baclofen 20 mg tablet RxNorm: 748077 1 Tablet(s) PO TID as needed 0 04/26/2015 07/23/2015 Inactive Lipitor 10 mg tablet RxNorm: 670354 1 Tablet(s) PO QHS 04/26/201508/2016 Inactive clonidine HCl 0.1 mg tablet RxNorm: 110378 1 Tablet(s) PO TID 04/2605/30/2015 Inactive replaces 0.2mg dose Klor-Con 8 mEq tablet,extended release RxNorm: 191790 1 Tablet( s) PO BID 04/26/2015 04/25/2016 Inactive metolazone 2.5 mg tablet RxNorm: 971751 1 Tablet(s) PO QD as ne eded for edema 04/26/2015 04/25/2015 Inactive triamterene 75 mg-hydrochlorothiazide 50 mg tablet RxNorm: 3 71201 1 Tablet(s) PO QD 04/26/2015 10/22/2015 Inactive Premarin 1.25 mg tablet RxNorm: 365744 1-2 Tablet(s) PO QD 04/26/20 15 10/22/2015 Inactive Bystolic 10 mg tablet RxNorm: 721194 1 Tablet(s) PO QAM TAKE ONE TABLET BY MOUTH EVERY MORNING 04/23/2015 06/23/2015 Inactive clonidine HCl 0.1 mg tablet RxNorm: 818891 1 Tablet(s) PO TID 03/2304/25/2015 Inactive replaces 0.2mg dose nystatin 100,000 unit/gram topical cream RxNorm: 502784 Applica tion TOP BID 03/23/2015 06/20/2015 Inactive baclofen 20 mg tablet RxNorm: 371066 1 Tablet(s) PO TID as needed 0 03/23/2015 04/25/2015 Inactive Premarin 1.25 mg tablet RxNorm: 968757 1-2 Tablet(s) PO QD 03/23/20 15 04/25/2015 Inactive Klor-Con 8 mEq tablet,extended release RxNorm: 224466 1 Tablet( s) PO BID 03/23/2015 04/25/2015 Inactive cefdinir 300 mg capsule RxNorm: 718565 2 Capsule(s) PO QD 03/16/2015 03/25/2015 Inactive baclofen 20 mg tablet RxNorm: 166101 1 Tablet(s) PO TID as needed 0 03/02/2015 03/22/2015 Inactive allopurinol 300 mg tablet RxNorm: 226709 1 Tablet(s) PO QD TAKE ONE TABLET BY MOUTH EVERY DAY 02/22/2015 05/22/2015 Inactive Klor-Con M20 mEq tablet,extended release RxNorm: 822843 2 Tablet(s) PO BID to use with lasix 02/22/2015 06/20/2015 Inactive clonidine HCl 0.1 mg tablet RxNorm: 898556 1 Tablet(s) PO TID 02/1903/22/2015 Inactive replaces 0.2mg dose Lipitor 10 mg tablet RxNorm: 045287 1 Tablet(s) PO QHS 01/20/201506/2015 Inactive Lipitor 10 mg tablet RxNorm: 503192 1 Tablet(s) PO QHS 01/20/2015 Inactive Singulair 10 mg tablet RxNorm: 897609 1 Tablet(s) PO QD TAKE ONE TABLET BY MOUTH EVERY DAY 11/20/2014 05/18/2015 Inactive Lipitor 10 mg tablet RxNorm: 144742 1 Tablet(s) PO QHS 11/20/201408/2015 Inactive allopurinol 300 mg tablet RxNorm: 285271 1 Tablet(s) PO QD TAKE ONE TABLET BY MOUTH EVERY DAY 11/20/2014 02/16/2015 Inactive Bystolic 10 mg tablet RxNorm: 774790 1 Tablet(s) PO QAM TAKE ONE TABLET BY MOUTH EVERY MORNING 11/20/2014 04/22/2015 Inactive Klor-Con 8 mEq tablet,extended release RxNorm: 992525 1 Tablet( s) PO BID 11/20/2014 02/17/2015 Inactive baclofen 20 mg tablet RxNorm: 779020 1 Tablet(s) PO TID as needed 0 11/20/2014 01/21/2019 Inactive baclofen 20 mg tablet RxNorm: 604872 1 Tablet(s) PO TID as needed 0 10/27/2014 11/19/2014 Inactive baclofen 20 mg tablet RxNorm: 552641 1 Tablet(s) PO TID as needed 0 10/26/2014 03/01/2015 Inactive allopurinol 300 mg tablet RxNorm: 994156 1 Tablet(s) PO QD TAKE ONE TABLET BY MOUTH EVERY DAY 10/26/2014 11/20/2014 Inactive Bystolic 10 mg tablet RxNorm: 453960 1 Tablet(s) PO QAM TAKE ONE TABLET BY MOUTH EVERY MORNING 10/26/2014 11/20/2014 Inactive clonidine HCl 0.1 mg tablet RxNorm: 468406 1 Tablet(s) PO TID 09/2805/27/2019 Inactive replaces 0.2mg dose clonidine HCl 0.1 mg tablet RxNorm: 866331 1 Tablet(s) PO TID 09/2802/18/2015 Inactive replaces 0.2mg dose baclofen 20 mg tablet RxNorm: 747647 1 Tablet(s) PO TID as needed 1 11/01/2013 08/30/2014 Inactive Lipitor 10 mg tablet RxNorm: 956783 1 Tablet(s) PO QHS 08/31/2014 Inactive baclofen 20 mg tablet RxNorm: 455720 1 Tablet(s) PO TID as needed 1 11/01/2013 10/26/2014 Inactive triamterene 75 mg-hydrochlorothiazide 50 mg tablet RxNorm: 3 72642 1 Tablet(s) PO QD 08/31/2014 02/26/2015 Inactive Klor-Con 8 mEq tablet,extended release RxNorm: 490683 1 Tablet( s) PO BID 08/31/2014 11/20/2014 Inactive baclofen 20 mg tablet RxNorm: 459066 1 Tablet(s) PO TID as needed 1 09/30/2013 10/25/2014 Inactive baclofen 20 mg tablet RxNorm: 833596 1 Tablet(s) PO TID as needed 1 09/30/2013 08/31/2014 Inactive omeprazole 40 mg capsule,delayed release RxNorm: 093473 1 Capsu le(s) PO QD 07/21/2014 07/23/2015 Inactive Flonase 50 mcg/actuation nasal spray,suspension RxNorm: 8963 23 1 [place] NASAL BID 07/15/2014 04/09/2017 Inactive hydrocodone 10 mg-acetaminophen 325 mg tablet RxNorm: 958436 1-2 Tablet(s) QID as needed for pain TAKE ONE TO TWO TABLETS BY MOUTH FOUR TIMES A DAY . MUST LAST 30 DAYS 06/30/2014 07/27/2014 Inactive (Response to an electronic controlled substance refill request - RxReferenceNumber: [id number]) baclofen 20 mg tablet RxNorm: 941220 1 Tablet(s) PO TID as needed 1 07/31/2014 Inactive Singulair 10 mg tablet RxNorm: 364096 1 Tablet(s) PO QD TAKE ONE TABLET BY MOUTH EVERY DAY 05/25/2014 11/20/2014 Inactive Bystolic 10 mg tablet RxNorm: 896674 TAKE ONE TABLET BY MOUTH E VERY MORNING 05/25/2014 09/21/2014 Inactive allopurinol 300 mg tablet RxNorm: 451443 1 Tablet(s) PO QD TAKE ONE TABLET BY MOUTH EVERY DAY 05/25/2014 10/21/2014 Inactive baclofen 20 mg tablet RxNorm: 642286 1 Tablet(s) PO TID as needed 0 05/25/2014 06/29/2014 Inactive allopurinol 300 mg tablet RxNorm: 722773 TAKE ONE TABLET BY LOPEZ TH EVERY DAY 05/25/2014 09/21/2014 Inactive Singulair 10 mg tablet RxNorm: 232687 1 Tablet(s) PO QD TAKE ONE TABLET BY MOUTH EVERY DAY 05/25/2014 05/24/2014 Inactive Bystolic 10 mg tablet RxNorm: 493471 1 Tablet(s) PO QAM TAKE ONE TABLET BY MOUTH EVERY MORNING 05/25/2014 10/21/2014 Inactive metolazone 2.5 mg tablet RxNorm: 260181 1 Tablet(s) PO QD as ne eded for edema 05/18/2014 04/25/2015 Inactive Lasix 40 mg tablet RxNorm: 226268 1 Tablet(s) PO RAZA ramirez take potassium supplementation with this medication 05/14/2014 05/17/2014 Inactive hydrocodone 10 mg-acetaminophen 325 mg tablet RxNorm: 305242 1-2 Tablet(s) QID as needed for pain TAKE ONE TO TWO TABLETS BY MOUTH FOUR TIMES A DAY . MUST LAST 30 DAYS 05/07/2014 06/05/2014 Inactive (Response to an electronic controlled substance refill request - RxReferenceNumber: [id number]) alprazolam 0.5 mg tablet RxNorm: 834308 TAKE ONE TABLET BY MOUTH TWICE A DAY , MUST LAST 30 DAYS 05/07/2014 05/22/2016 Inactive (Response to a n electronic controlled substance refill request - RxReferenceNumber: [id number]) diclofenac sodium 75 mg tablet,delayed release RxNorm: 33464 6 1 Tablet(s) PO BID for pain 04/24/2014 07/20/2014 Inactive Celebrex 200 mg capsule RxNorm: 136840 TAKE ONE CAPSULE BY MOUT H EVERY DAY 04/24/2014 07/20/2014 Inactive alprazolam 0.5 mg tablet RxNorm: 306041 TAKE ONE TABLET BY MOUTH TWICE A DAY , MUST LAST 30 DAYS 03/24/2014 04/22/2014 Inactive (Response to a n electronic controlled substance refill request - RxReferenceNumber: [id number]) diclofenac sodium 75 mg tablet,delayed release RxNorm: 60352 6 1 Tablet(s) PO BID for pain 03/24/2014 04/24/2014 Inactive clonidine HCl 0.1 mg tablet RxNorm: 332977 1 Tablet(s) PO TID 03/2409/28/2014 Inactive replaces 0.2mg dose Klor-Con 8 mEq tablet,extended release RxNorm: 713714 1 Tablet( s) PO BID 02/26/2014 08/31/2014 Inactive diclofenac sodium 75 mg tablet,delayed release RxNorm: 76825 6 1 Tablet(s) PO BID for pain 02/25/2014 03/24/2014 Inactive hydrocodone 10 mg-acetaminophen 325 mg tablet RxNorm: 542251 1-2 Tablet(s) QID as needed for pain TAKE ONE TO TWO TABLETS BY MOUTH FOUR TIMES A DAY . MUST LAST 30 DAYS 02/25/2014 03/26/2014 Inactive (Response to an electronic controlled substance refill request - RxReferenceNumber: [id number]) alprazolam 0.5 mg tablet RxNorm: 662003 Tablet(s) PO BI D as needed for anxiety TAKE ONE TABLET BY MOUTH TWICE A DAY , MUST LAST 30 DAYS 02/25/2014 Inactive (Response to an electronic controlled [place] bstance refill request - RxReferenceNumber: [id number]) [AttnRPh: Saving apply/adjudicate RxGRP:SG20 RxBIN:[id number] RxPCN: ID#:[id number]] alprazolam 0.5 mg tablet RxNorm: 706733 Tablet(s) TAKE ONE TABLET BY MOUTH TWICE A DAY , MUST LAST 30 DAYS 01/27/2014 02/24/2014 Inactive (Respo nse to an electronic controlled substance refill request - RxReferenceNumber: [id number]) [AttnRPh: Saving apply/adjudicate RxGRP:SG20 RxBIN:[id number] RxPCN: ID#:[id number]] hydrocodone 10 mg-acetaminophen 325 mg tablet RxNorm: 334561 1-2 Tablet(s) QID as needed for pain TAKE ONE TO TWO TABLETS BY MOUTH FOUR TIMES A DAY . MUST LAST 30 DAYS 01/27/2014 02/24/2014 Inactive (Response to an electronic controlled substance refill request - RxReferenceNumber: [id number]) alprazolam 0.5 mg tablet RxNorm: 187515 TAKE ONE TABLET BY MOUTH TWICE A DAY , MUST LAST 30 DAYS 01/27/2014 01/26/2014 Inactive (Response to a n electronic controlled substance refill request - RxReferenceNumber: [id number]) Premarin 1.25 mg tablet RxNorm: 784826 1-2 Tablet(s) PO QD 01/28/20 14 07/25/2014 Inactive alprazolam 0.5 mg tablet RxNorm: 390199 TAKE ONE TABLET BY MOUTH TWICE A DAY , MUST LAST 30 DAYS 01/27/2014 01/27/2014 Inactive (Response to a n electronic controlled substance refill request - RxReferenceNumber: [id number]) hydrocodone 10 mg-acetaminophen 325 mg tablet RxNorm: 500656 TAKE ONE TO TWO TABLETS BY MOUTH FOUR TIMES A DAY . MUST LAST 30 DAYS 01/27/20142013 Inactive (Response to an electronic controlled [place] bstance refill request - RxReferenceNumber: [id number]) Celebrex 200 mg capsule RxNorm: 821748 1 Capsule(s) PO QD TAKE ONE CAPSULE BY MOUTH EVERY DAY 12/29/2013 04/27/2014 Inactive hydrocodone 10 mg-acetaminophen 325 mg tablet RxNorm: 819058 1-2 Tablet(s) PO QID as needed for severe pain 12/29/2013 01/27/2014 Inactive allopurinol 300 mg tablet RxNorm: 929021 1 Tablet(s) PO QD TAKE ONE TABLET BY MOUTH EVERY DAY 12/29/2013 05/24/2014 Inactive alprazolam 0.5 mg tablet RxNorm: 667127 TAKE ONE TABLET BY MOUTH TWICE A DAY , MUST LAST 30 DAYS 12/29/2013 01/27/2014 Inactive (Response to a n electronic controlled substance refill request - RxReferenceNumber: [id number]) Celebrex 200 mg capsule RxNorm: 308619 1 Capsule(s) PO QD TAKE ONE CAPSULE BY MOUTH EVERY DAY 12/29/2013 12/29/2013 Inactive Bystolic 10 mg tablet RxNorm: 957986 1 Tablet(s) PO QAM TAKE ONE TABLET BY MOUTH EVERY MORNING 12/29/2013 05/24/2014 Inactive Bystolic 10 mg tablet RxNorm: 347719 1 Tablet(s) PO QAM TAKE ONE TABLET BY MOUTH EVERY MORNING 12/29/2013 12/29/2013 Inactive Singulair 10 mg tablet RxNorm: 985616 1 Tablet(s) PO QD TAKE ONE TABLET BY MOUTH EVERY DAY 12/29/2013 05/25/2014 Inactive hydrocodone 10 mg-acetaminophen 325 mg tablet RxNorm: 399905 TAKE ONE TO TWO TABLETS BY MOUTH FOUR TIMES A DAY . MUST LAST 30 DAYS 12/29/20132013 Inactive (Response to an electronic controlled [place] bstance refill request - RxReferenceNumber: [id number]) Trazadone 75mg Tablet RxNorm: 1 Tablet(s) PO QHS as needed 03/23/2014 Inactive Trazadone 75mg Tablet RxNorm: 1 Tablet(s) PO QHS 12/24/20132014 Inactive Soma 350 mg tablet RxNorm: 123475 Tablet(s) PO TAKE ON E TABLET BY MOUTH THREE TIMES A DAY NEEDED FOR MUSCLE SPASMS. THIS MUST LAST 30 DAYS BETWEEN REFILLS. 12/10/2013 12/22/2013 Inactive (Appended: Cont rolled substance eRx refill - RxReferenceNumber: [id number]) diclofenac sodium 75 mg tablet,delayed release RxNorm: 36345 6 1 Tablet(s) PO BID for pain 12/10/2013 02/24/2014 Inactive allopurinol 300 mg tablet RxNorm: 020399 1 Tablet(s) PO QD 11/20/19 14 12/29/2013 Inactive alprazolam 0.5 mg tablet RxNorm: 773224 2 Tablet(s) PO BID 11/13/19 14 12/29/2013 Inactive prn clonidine 0.1 mg tablet RxNorm: 910254 1 Tablet(s) PO TID 11/12/2013 02/09/2014 Inactive replaces 0.2mg dose Klor-Con M20 mEq tablet,extended release RxNorm: 435295 2 Tablet(s) PO BID to use with lasix 11/12/2013 05/10/2014 Inactive Singulair 10 mg tablet RxNorm: 814509 1 Tablet(s) PO QD 11/12/2013 Inactive hydrocodone 10 mg-acetaminophen 325 mg tablet RxNorm: 751096 1-2 Tablet(s) PO QID as needed for severe pain 11/12/2013 12/28/2013 Inactive Bystolic 10 mg tablet RxNorm: 664499 1 Tablet(s) PO QAM 11/12/2013 Inactive Soma 350 mg tablet RxNorm: 865186 Tablet(s) PO TAKE ON E TABLET BY MOUTH THREE TIMES A DAY NEEDED FOR MUSCLE SPASMS. THIS MUST LAST 30 DAYS BETWEEN REFILLS. 10/13/2013 12/10/2013 Inactive (Appended: Cont rolled substance eRx refill - RxReferenceNumber: [id number]) hydrocodone 10 mg-acetaminophen 325 mg tablet RxNorm: 049254 1-2 Tablet(s) PO QID as needed for severe pain 10/03/2013 11/11/2013 Inactive diclofenac sodium 75 mg tablet,delayed release RxNorm: 04428 8 1 Tablet(s) PO BID for pain 09/11/2013 12/10/2013 Inactive alprazolam 0.5 mg tablet RxNorm: 128627 1 Tablet(s) PO BID May refill on 04/26/13 09/01/2013 10/30/2013 Inactive prn hydrocodone 10 mg-acetaminophen 325 mg tablet RxNorm: 944655 1-2 Tablet(s) PO QID as needed for severe pain 09/01/2013 10/02/2013 Inactive triamterene 75 mg-hydrochlorothiazide 50 mg tablet RxNorm: 3 58076 1 Tablet(s) PO QD 08/04/2013 08/31/2014 Inactive cyclobenzaprine 10 mg tablet RxNorm: 210001 1 Tablet(s) PO TID prn spasm 08/04/2013 08/13/2013 Inactive clonidine 0.1 mg tablet RxNorm: 381262 1 Tablet(s) PO TID 08/04/2013 11/11/2013 Inactive replaces 0.2mg dose cyclobenzaprine 10 mg tablet RxNorm: 099874 1 Tablet(s) PO TID prn spasm 07/23/2013 08/01/2013 Inactive hydrocodone 10 mg-acetaminophen 325 mg tablet RxNorm: 379859 2 1-2 Tablet(s) PO QID as needed for severe pain 06/09/2013 08/07/2013 Inactive Singulair 10 mg tablet RxNorm: 066267 1 Tablet(s) PO QD 05/29/2013 Inactive Klor-Con 8 mEq tablet,extended release RxNorm: 358029 1 Tablet( s) PO BID 05/29/2013 02/26/2014 Inactive allopurinol 300 mg tablet RxNorm: 276787 1 Tablet(s) PO QD 05/29/20 13 11/19/2013 Inactive Bystolic 10 mg tablet RxNorm: 267822 1 Tablet(s) PO QAM take one daily in the morning. 05/29/2013 11/11/2013 Inactive scopolamine 1.5 mg 72 hr Transderm Patch RxNorm: 718060 Application TD Q72H for motion sickness 05/26/2013 07/22/2013 Inactive Soma 350 mg tablet RxNorm: 009748 1 Tablet(s) PO TID as needed for spasm 05/19/2013 10/13/2013 Inactive diclofenac sodium 75 mg tablet,delayed release RxNorm: 19994 8 1 Tablet(s) PO BID for pain 05/14/2013 07/22/2013 Inactive allopurinol 300 mg tablet RxNorm: 290031 1 Tablet(s) PO QD 04/25/20 13 05/28/2013 Inactive alprazolam 0.5 mg tablet RxNorm: 600573 1 Tablet(s) PO BID May refill on 04/26/13 04/25/2013 06/23/2013 Inactive prn Celebrex 200 mg capsule RxNorm: 860954 1 Capsule(s) PO QD 04/16/2013 12/29/2013 Inactive alprazolam 0.5 mg tablet RxNorm: 250862 1 Tablet(s) PO BID May refill on 04/26/13 04/16/2013 04/24/2013 Inactive prn Soma 350 mg tablet RxNorm: 898684 1 Tablet(s) PO TID as needed for spasm 04/16/2013 No Stop Date Active Lasix 40 mg tablet RxNorm: 770494 1 Tablet(s) PO QAM s hould take potassium supplementation with this medication 04/16/2013 06/14/2013 Inactive clonidine 0.1 mg tablet RxNorm: 782695 1 Tablet(s) PO TID 04/16/2013 08/03/2013 Inactive replaces 0.2mg dose prednisone 20 mg tablet RxNorm: 632686 1 Tablet(s) PO BID 04/16/2013 04/20/2013 Inactive diclofenac sodium 75 mg tablet,delayed release RxNorm: 93540 8 1 Tablet(s) PO BID for pain 04/14/2013 05/13/2013 Inactive hydrocodone 10 mg-acetaminophen 325 mg tablet RxNorm: 408481 2 1-2 Tablet(s) PO QID as needed for severe pain 04/14/2013 No Stop Date Active Lasix 40 mg tablet RxNorm: 557074 1 Tablet(s) PO QAM s hould take potassium supplementation with this medication 03/31/2013 04/15/2013 Inactive Celebrex 200 mg capsule RxNorm: 907820 1 Capsule(s) PO QD 03/31/2013 04/15/2013 Inactive alprazolam 0.5 mg tablet RxNorm: 641808 1 Tablet(s) PO BID 03/28/20 13 04/15/2013 Inactive prn hydrocodone 10 mg-acetaminophen 325 mg tablet RxNorm: 897069 2 1-2 Tablet(s) PO QID as needed for severe pain 03/10/2013 No Stop Date Active metformin ER 500 mg 24 hr tablet,extended release RxNorm: 86 1018 1 Tablet(s) PO QD 03/06/2013 07/22/2013 Inactive clindamycin 300 mg capsule RxNorm: 711935 2 Capsule(s) PO TID 03/0503/14/2013 Inactive Zaroxolyn 2.5 mg tablet RxNorm: 030415 1 Tablet(s) PO QAM 03/05/2013 05/19/2015 Inactive amlodipine 10 mg tablet RxNorm: 664622 1 Tablet(s) PO QD 03/03/2013 0 05/25/2013 Inactive Norvasc 10 mg tablet RxNorm: 828656 1 Tablet(s) PO QD 02/28/201307/11 Inactive Celebrex 200 mg capsule RxNorm: 530227 1 Capsule(s) PO QD 02/28/2013 03/30/2013 Inactive diclofenac sodium 75 mg tablet,delayed release RxNorm: 53212 8 1 Tablet(s) PO BID for pain 02/14/2013 03/15/2013 Inactive Soma 350 mg tablet RxNorm: 564876 1 Tablet(s) PO TID as needed for spasm 02/14/2013 No Stop Date Active hydrocodone 10 mg-acetaminophen 325 mg tablet RxNorm: 003481 2 1-2 Tablet(s) PO QID as needed for severe pain 02/14/2013 No Stop Date Active Norvasc 10 mg tablet RxNorm: 324224 1 Tablet(s) PO QD 02/10/201302/09 Inactive Celebrex 200 mg capsule RxNorm: 603937 1 Capsule(s) PO QD 01/27/2013 01/26/2013 Inactive Premarin 1.25 mg tablet RxNorm: 162224 1-2 Tablet(s) PO QD 01/28/20 13 06/25/2013 Inactive alprazolam 0.5 mg tablet RxNorm: 973462 1 Tablet(s) PO BID 01/28/20 13 02/25/2013 Inactive prn amlodipine 5 mg tablet RxNorm: 501828 1 Tablet(s) PO QD 01/27/2013 Inactive Celebrex 200 mg capsule RxNorm: 538323 1 Capsule(s) PO QD 01/27/2013 02/27/2013 Inactive gabapentin 600 mg tablet RxNorm: 366893 1 Tablet(s) PO QHS 01/16/20 13 07/22/2013 Inactive Soma 350 mg tablet RxNorm: 339316 1 Tablet(s) PO TID as needed for spasm 01/15/2013 No Stop Date Active hydrocodone 10 mg-acetaminophen 325 mg tablet RxNorm: 759725 2 1-2 Tablet(s) PO QID as needed for severe pain 01/15/2013 No Stop Date Active Soma 350 mg tablet RxNorm: 893895 1 Tablet(s) PO TID as needed for spasm 01/13/2013 No Stop Date Active alprazolam 0.5 mg tablet RxNorm: 905691 1 Tablet(s) PO BID 12/31/19 13 01/26/2013 Inactive prn diclofenac sodium 75 mg tablet,delayed release RxNorm: 02434 8 1 Tablet(s) PO BID for pain 12/09/2012 01/07/2013 Inactive gabapentin 600 mg tablet RxNorm: 149306 1 Tablet(s) PO QHS 12/10/19 13 01/07/2013 Inactive hydrocodone 10 mg-acetaminophen 325 mg tablet RxNorm: 754794 2 1-2 Tablet(s) PO QID as needed for severe pain 12/02/2012 No Stop Date Active Levaquin 750 mg tablet RxNorm: 751753 1 Tablet(s) PO QD 11/21/2012 Inactive Singulair 10 mg tablet RxNorm: 214945 1 Tablet(s) PO QD 11/11/2012 Inactive clonidine 0.2 mg tablet RxNorm: 489128 1 Tablet(s) PO TID 11/11/2012 04/15/2013 Inactive alprazolam 0.5 mg tablet RxNorm: 528854 1 Tablet(s) PO BID 11/12/19 13 12/10/2012 Inactive prn Klor-Con 8 mEq tablet,extended release RxNorm: 650518 1 Tablet( s) PO BID 11/11/2012 03/04/2013 Inactive hydrocodone 10 mg-acetaminophen 325 mg tablet RxNorm: 540066 2 1-2 Tablet(s) PO QID as needed for severe pain 11/06/2012 No Stop Date Active alprazolam 0.5 mg tablet RxNorm: 101092 1 Tablet(s) PO BID 10/15/19 13 11/10/2012 Inactive prn hydrocodone-acetaminophen 10 mg-325 mg tablet RxNorm: 741206 2 1-2 Tablet(s) PO QID as needed for severe pain 10/10/2012 10/09/2012 Inactive allopurinol 300 mg tablet RxNorm: 708055 1 Tablet(s) PO QD 09/20/19 13 12/18/2012 Inactive alprazolam 0.5 mg tablet RxNorm: 527791 1 Tablet(s) PO BID 09/17/19 13 10/14/2012 Inactive prn hydrocodone-acetaminophen 10 mg-325 mg tablet RxNorm: 316522 2 1-2 Tablet(s) PO QID as needed for severe pain 08/22/2012 08/21/2012 Inactive Norvasc 10 mg tablet RxNorm: 159809 1 Tablet(s) PO QD 08/12/201201/10 Inactive Premarin 1.25 mg tablet RxNorm: 229416 1-2 Tablet(s) PO QD 07/30/20 12 12/26/2012 Inactive alprazolam 0.5 mg tablet RxNorm: 629342 1 Tablet(s) PO BID 07/29/20 12 08/27/2012 Inactive prn Klor-Con 8 mEq tablet,extended release RxNorm: 772456 1 Tablet( s) PO BID 07/29/2012 11/10/2012 Inactive hydrocodone-acetaminophen 10 mg-325 mg tablet RxNorm: 945100 2 1-2 Tablet(s) PO QID as needed for severe pain 07/29/2012 No Stop Date Active Premarin 1.25 mg tablet RxNorm: 300236 1-2 Tablet(s) PO QD 07/29/20 12 07/29/2012 Inactive clonidine 0.2 mg tablet RxNorm: 993514 1 Tablet(s) PO TID 07/29/2012 10/28/2012 Inactive ketorolac 10 mg tablet RxNorm: 654220 1 Tablet(s) PO QID prn mitul leonardche 07/18/2012 No Stop Date Active hydrocodone-acetaminophen 10 mg-325 mg tablet RxNorm: 190680 2 1-2 Tablet(s) PO QID as needed for severe pain 07/03/2012 No Stop Date Active amlodipine 5 mg tablet RxNorm: 054228 1 Tablet(s) PO QD 07/02/2012 Inactive allopurinol 300 mg tablet RxNorm: 852987 1 Tablet(s) PO QD 07/02/2009/19/2012 Inactive Celebrex 200 mg capsule RxNorm: 845409 1 Capsule(s) PO QD for j oint pain 06/26/2012 10/23/2012 Inactive diclofenac sodium 75 mg tablet,delayed release RxNorm: 76011 8 1 Tablet(s) PO BID for pain 06/19/2012 09/16/2012 Inactive hydrocodone-acetaminophen 10 mg-325 mg tablet RxNorm: 598173 2 1-2 Tablet(s) PO QID as needed for severe pain 06/10/2012 No Stop Date Active alprazolam 0.5 mg tablet RxNorm: 079616 1 Tablet(s) PO BID 06/03/20 12 07/02/2012 Inactive prn ketorolac 10 mg tablet RxNorm: 691646 1 Tablet(s) PO Q8H 05/27/2012 0 01/21/2019 Inactive as needed for headache hydrocodone-acetaminophen 10 mg-325 mg tablet RxNorm: 391502 2 1-2 Tablet(s) PO QID as needed for severe pain 05/15/2012 No Stop Date Active allopurinol 300 mg tablet RxNorm: 317609 1 Tablet(s) PO QD 05/14/2006/12/2012 Inactive allopurinol 300 mg tablet RxNorm: 105633 1 Tablet(s) PO QD 05/14/20 12 05/13/2012 Inactive amlodipine 5 mg tablet RxNorm: 519456 1 Tablet(s) PO QD 05/01/2012 Inactive amlodipine 5 mg Tab RxNorm: 494423 1 Tablet(s) PO QD 05/01/201204/30 Inactive Celebrex 200 mg capsule RxNorm: 183608 1 Capsule(s) PO QD for j oint pain 05/01/2012 06/25/2012 Inactive Singulair 10 mg tablet RxNorm: 760607 1 Tablet(s) PO QD 05/01/2012 Inactive alprazolam 0.5 mg tablet RxNorm: 226159 1 Tablet(s) PO BID 05/01/2005/30/2012 Inactive prn Celebrex 200 mg Cap RxNorm: 362635 1 Capsule(s) PO QD for joint radu n 05/01/2012 04/30/2012 Inactive hydrocodone-acetaminophen 10 mg-325 mg tablet RxNorm: 108009 2 1-2 Tablet(s) PO QID as needed for severe pain 04/19/2012 No Stop Date Active Lasix 40 mg tablet RxNorm: 388845 1 Tablet(s) PO RAZA alan ashley take potassium supplementation with this medication 04/05/2012 06/03/2012 Inactive alprazolam 0.5 mg Tab RxNorm: 612768 1 Tablet(s) PO BID 04/05/2012 Inactive prn hydrocodone-acetaminophen 10 mg-325 mg Tab RxNorm: 7748887 1-2 Tablet(s) PO QID as needed for severe pain 03/25/2012 03/24/2012 Inactive clonidine 0.2 mg Tab RxNorm: 026899 1 Tablet(s) PO TID 03/08/2012 Inactive alprazolam 0.5 mg Tab RxNorm: 076359 1 Tablet(s) PO BID 03/08/2012 Inactive prn Soma 350 mg tablet RxNorm: 247565 1 Tablet(s) PO TID for spasm 02/0903/18/2012 Inactive clonidine 0.2 mg tablet RxNorm: 401111 1 Tablet(s) PO TID 03/08/2012 07/28/2012 Inactive Celebrex 200 mg Cap RxNorm: 636539 1 Capsule(s) PO QD for joint radu n 03/01/2012 04/29/2012 Inactive amlodipine 5 mg Tab RxNorm: 800337 1 Tablet(s) PO QD 02/26/201202/24 Inactive amlodipine 5 mg Tab RxNorm: 278125 1 Tablet(s) PO QD 02/26/201204/25 Inactive Bactroban 2 % Ointment RxNorm: 850358 Application TOP QID to sores 02/23/2012 No Stop Date Active amlodipine 2.5 mg tablet RxNorm: 141092 1 Tablet(s) PO QHS 02/20/20 12 02/25/2012 Inactive doxycycline hyclate 100 mg Cap RxNorm: 7572997 1 Capsule(s) PO BID 02/20/2012 02/29/2012 Inactive hydrocodone-acetaminophen 10 mg-325 mg Tab RxNorm: 1710994 1-2 T ablet(s) PO QID 02/08/2012 No Stop Date Active alprazolam 0.5 mg Tab RxNorm: 275876 1 Tablet(s) PO BID 02/08/2012 Inactive prn Singulair 10 mg Tab RxNorm: 132233 1 Tablet(s) PO QD 02/08/201204/30 Inactive Soma 350 mg Tab RxNorm: 094351 1 Tablet(s) PO TID for spasm 012 03/07/2012 Inactive Soma 350 mg Tab RxNorm: 176439 1 Tablet(s) PO TID for spasm 012 02/05/2012 Inactive diclofenac sodium 75 mg tablet,delayed release RxNorm: 13889 8 1 Tablet(s) PO BID for pain 02/01/2012 03/18/2012 Inactive Celebrex 200 mg Cap RxNorm: 739520 1 Capsule(s) PO QD for joint radu n 01/30/2012 02/28/2012 Inactive Lasix 40 mg Tab RxNorm: 661815 1 Tablet(s) PO QAM 01/24/2012 03/18/20 12 Inactive potassium chloride ER 20 mEq tablet,extended release(part/cr yst) RxNorm: 689390 2 Tablet(s) PO BID 01/24/2012 02/22/2012 Inactive alprazolam 0.5 mg Tab RxNorm: 971612 1 Tablet(s) PO BID 01/11/2012 Inactive prn hydrocodone-acetaminophen 10 mg-325 mg Tab RxNorm: 8680680 1-2 T ablet(s) PO QID 01/11/2012 No Stop Date Active Ambien 10 mg Tab RxNorm: 172109 1 Tablet(s) PO QHS 01/11/2012 012 Inactive Klor-Con 8 mEq Tab RxNorm: 482452 1 Tablet(s) PO BID 01/11/201201/22 Inactive diclofenac sodium 75 mg Tab, Delayed Release RxNorm: 238162 1 Tablet(s) PO BID for pain 01/10/2012 01/31/2012 Inactive Ambien 10 mg Tab RxNorm: 750749 1 Tablet(s) PO QHS 12/11/2011 012 Inactive alprazolam 0.5 mg Tab RxNorm: 558572 1 Tablet(s) PO BID 12/11/2011 Inactive prn hydrocodone 10 mg-acetaminophen 325 mg tablet RxNorm: 003819 1-2 Tablet(s) PO TID 11/28/2011 No Stop Date Active as needed for pa in - Previous quantity #240, will start dosing for #180 in April 2011 per Doctor Td. Ambien 10 mg Tab RxNorm: 741465 1 Tablet(s) PO QHS 11/09/2011 012 Inactive alprazolam 0.5 mg Tab RxNorm: 821187 1 Tablet(s) PO BID 11/09/2011 Inactive prn hydrocodone-acetaminophen 10 mg-325 mg Tab RxNorm: 1905927 1-2 T ablet(s) PO TID 11/06/2011 No Stop Date Active as needed for pain - Previous quantity #240, will start dosing for #180 in April 2011 per Doctor Td. Singulair 10 mg Tab RxNorm: 374599 1 Tablet(s) PO QD 10/13/201110/12 Inactive Singulair 10 mg Tab RxNorm: 153990 1 Tablet(s) PO QD 10/13/201102/06 Inactive hydrocodone-acetaminophen 10 mg-325 mg Tab RxNorm: 6666679 1-2 T ablet(s) PO TID 10/10/2011 10/09/2011 Inactive as needed for pain - Previous quantity #240, will start dosing for #180 in April 2011 per Doctor Td. hydrocodone-acetaminophen 10 mg-325 mg Tab RxNorm: 6575027 1-2 T ablet(s) PO TID 10/09/2011 No Stop Date Active as needed for pain - Previous quantity #240, will start dosing for #180 in April 2011 per Doctor Td. Klor-Con 8 mEq Tab RxNorm: 598163 1 Tablet(s) PO BID 10/02/201101/09 Inactive triamterene 75 mg-hydrochlorothiazide 50 mg tablet RxNorm: 3 91737 1 Tablet(s) PO QD 09/14/2011 03/06/2013 Inactive Ambien 10 mg Tab RxNorm: 956072 1 Tablet(s) PO QHS 09/14/2011 012 Inactive hydrocodone-acetaminophen 10 mg-325 mg Tab RxNorm: 4346464 1-2 T ablet(s) PO TID 09/14/2011 No Stop Date Active as needed for pain - Previous quantity #240, will start dosing for #180 in April 2011 per Doctor Td. alprazolam 0.5 mg Tab RxNorm: 086520 1 Tablet(s) PO BID 09/14/2011 Inactive prn Zithromax 500 mg Tab RxNorm: 5424246 1 Tablet(s) PO QD 09/13/201106/2012 Inactive prednisone 20 mg Tab RxNorm: 996366 1 Tablet(s) PO BID 08/31/2011 Inactive Ambien 10 mg Tab RxNorm: 284903 1 Tablet(s) PO QHS 08/17/2011 011 Inactive hydrocodone-acetaminophen 10 mg-325 mg Tab RxNorm: 5806331 1-2 T ablet(s) PO TID 08/17/2011 No Stop Date Active as needed for pain - Previous quantity #240, will start dosing for #180 in April 2011 per Doctor Td. clonidine 0.2 mg Tab RxNorm: 734177 1 Tablet(s) PO TID 08/17/201112/2011 Inactive Ambien 10 mg Tab RxNorm: 103629 1 Tablet(s) PO QHS 08/17/2011 019 Inactive alprazolam 0.5 mg Tab RxNorm: 959369 1 Tablet(s) PO BID 08/17/2011 Inactive prn hydrocodone-acetaminophen 10 mg-325 mg Tab RxNorm: 0452281 1-2 T ablet(s) PO TID 08/17/2011 08/16/2011 Inactive as needed for pain - Previous quantity #240, will start dosing for #180 in April 2011 per Doctor Td. Singulair 10 mg Tab RxNorm: 964260 1 Tablet(s) PO QD 08/17/201108/16 Inactive Klor-Con 8 mEq Tab RxNorm: 242257 1 Tablet(s) PO QD 08/17/20112011 Inactive alprazolam 0.5 mg Tab RxNorm: 002912 1 Tablet(s) PO BID 07/20/2011 Inactive prn Ambien 10 mg Tab RxNorm: 417100 1 Tablet(s) PO QHS 07/20/2011 012 Inactive Singulair 10 mg Tab RxNorm: 370096 1 Tablet(s) PO QD 07/20/201107/19 Inactive Premarin 1.25 mg tablet RxNorm: 739862 2 Tablet(s) PO QD 07/20/2011 0 01/21/2019 Inactive Premarin 1.25 mg tablet RxNorm: 669858 1-2 Tablet(s) PO QD 07/20/20 11 12/16/2011 Inactive Premarin 1.25 mg Tab RxNorm: 308079 1-2 Tablet(s) PO QD 07/06/2011 Inactive alprazolam 0.5 mg Tab RxNorm: 458866 1 Tablet(s) PO BID 06/22/2011 Inactive prn alprazolam 0.5 mg Tab RxNorm: 772753 1 Tablet(s) PO BID 06/22/2011 Inactive prn Premarin 1.25 mg Tab RxNorm: 716366 1 Tablet(s) PO QD m ay do 90 day fill if desired 06/22/2011 07/05/2011 Inactive hydrocodone-acetaminophen 10 mg-325 mg Tab RxNorm: 5561233 1-2 T ablet(s) PO TID 06/22/2011 No Stop Date Active as needed for pain - Previous quantity #240, will start dosing for #180 in April 2011 per Doctor Td. clonidine 0.2 mg Tab RxNorm: 345955 1 Tablet(s) PO TID 05/25/201103/2011 Inactive triamterene-hydrochlorothiazide 75 mg-50 mg Tab RxNorm: 3108 18 1 Tablet(s) PO QD 05/25/2011 09/13/2011 Inactive alprazolam 0.5 mg Tab RxNorm: 840975 1 Tablet(s) PO BID 05/25/2011 Inactive prn hydrocodone-acetaminophen 10 mg-325 mg Tab RxNorm: 6711299 1-2 T ablet(s) PO TID 05/25/2011 No Stop Date Active as needed for pain - Previous quantity #240, will start dosing for #180 in April 2011 per Doctor Td. Robaxin-750 750 mg Tab RxNorm: 101950 2 Tablet(s) PO QHS 05/22/2011 1 Inactive prn spasm hydrocodone-acetaminophen 10 mg-325 mg Tab RxNorm: 2509049 1-2 T ablet(s) PO TID 04/26/2011 No Stop Date Active as needed for pain - Previous quantity #240, will start dosing for #180 in April 2011 per Doctor Td. alprazolam 0.5 mg Tab RxNorm: 489365 1 Tablet(s) PO BID 04/25/2011 Inactive prn Klor-Con 8 mEq Tab RxNorm: 944450 1 Tablet(s) PO QD 03/30/20112010 Inactive Klor-Con 8 mEq Tab RxNorm: 370656 1 Tablet(s) PO QD 03/29/20112010 Inactive hydrocodone-acetaminophen 10 mg-325 mg Tab RxNorm: 4163511 1-2 T ablet(s) PO TID 03/20/2011 04/25/2011 Inactive as needed for pain - Previous quantity #240, will start dosing for #180 in April 2011 per Doctor Td. alprazolam 0.5 mg Tab RxNorm: 325817 1 Tablet(s) PO BID prn 011 03/30/2011 Inactive Ambien 10 mg Tab RxNorm: 287645 1 Tablet(s) PO QHS 03/01/2011 011 Inactive cyclobenzaprine 10 mg Tab RxNorm: 482693 1 Tablet(s) PO TID 011 03/18/2012 Inactive cyclobenzaprine 10 mg Tab RxNorm: 944302 1 Tablet(s) PO TID 011 01/08/2011 Inactive cyclobenzaprine 10 mg Tab RxNorm: 007530 1 Tablet(s) PO TID 011 12/20/2010 Inactive terbinafine 250 mg Tab RxNorm: 990556 1 Tablet(s) PO QD 12/12/2010 Inactive triamterene-hydrochlorothiazide 75 mg-50 mg Tab RxNorm: 3108 18 1 Tablet(s) PO QD 12/07/2010 06/04/2011 Inactive Klor-Con 8 8 mEq Tab RxNorm: 217048 1 Tablet(s) PO QD 12/07/201001/08 Inactive Premarin 1.25 mg Tab RxNorm: 201599 2 Tablet(s) PO QD 12/07/201001/08 Inactive clonidine 0.2 mg Tab RxNorm: 765594 1 Tablet(s) PO TID 12/07/2010 Inactive hydrocodone-acetaminophen 7.5 mg-650 mg Tab RxNorm: 170158 1 Ta blet(s) PO Q4H 12/05/2010 01/21/2019 Inactive hydrocodone-acetaminophen 7.5 mg-650 mg Tab RxNorm: 861135 1 Ta blet(s) PO Q4H 10/26/2010 11/14/2010 Inactive hydrocodone-acetaminophen 7.5 mg-650 mg Tab RxNorm: 658739 1 Ta blet(s) PO Q4H 10/13/2010 10/25/2010 Inactive hydrocodone-acetaminophen 7.5 mg-650 mg Tab RxNorm: 330552 1 Ta blet(s) PO Q4H 09/15/2010 09/12/2010 Inactive alprazolam 0.5 mg Tab RxNorm: 312099 1 Tablet(s) PO BID prn 011 09/12/2010 Inactive terbinafine 250 mg Tab RxNorm: 836989 1 Tablet(s) PO QD 09/05/2010 Inactive hydrocodone-acetaminophen 7.5 mg-650 mg Tab RxNorm: 521921 1 Ta blet(s) PO Q4H 08/29/2010 09/17/2010 Inactive alprazolam 0.5 mg Tab RxNorm: 412108 1 Tablet(s) PO BID prn 010 09/27/2010 Inactive alprazolam 0.5 mg Tab RxNorm: 564330 1 Tablet(s) PO BID prn 09/06/2010 Inactive Klor-Con 8 mEq Tab RxNorm: 836840 1 Tablet(s) PO QD 08/08/20102010 Inactive hydrocodone-acetaminophen 7.5 mg-650 mg Tab RxNorm: 623907 1 Ta blet(s) PO Q4H 08/08/2010 08/27/2010 Inactive Ambien 10 mg Tab RxNorm: 153312 1 Tablet(s) PO QHS 08/08/2010 Inactive clonidine 0.2 mg Tab RxNorm: 208798 1 Tablet(s) PO TID 08/08/2010 Inactive Premarin 1.25 mg Tab RxNorm: 615167 2 Tablet(s) PO QD 08/08/201009/12 Inactive Ambien 10 mg Tab RxNorm: 864142 1 Tablet(s) PO QHS 07/18/2010 Inactive alprazolam 0.5 mg Tab RxNorm: 915248 1 Tablet(s) PO BID prn 08/07/2010 Inactive hydrocodone-acetaminophen 7.5 mg-650 mg Tab RxNorm: 683865 1 Ta blet(s) PO Q4H 07/12/2010 07/31/2010 Inactive clonidine 0.2 mg Tab RxNorm: 419922 1 Tablet(s) PO TID 06/20/2010 Inactive terbinafine 250 mg Tab RxNorm: 008287 1 Tablet(s) PO QD 05/24/2010 Inactive Clonidine 0.2 mg Tab RxNorm: 994596 1 Tablet(s) PO TID 05/24/201006/2010 Inactive Ambien 10 mg Tab RxNorm: 189456 1 Tablet(s) PO QHS 05/24/2010 010 Inactive alprazolam 0.5 mg Tab RxNorm: 286370 1 Tablet(s) PO BID 05/24/2010 Inactive Klor-Con 8 mEq Tab RxNorm: 484731 1 Tablet(s) PO QD 05/24/20102009 Inactive alprazolam 0.5 mg Tab RxNorm: 749915 2 Tablet(s) PO QD prn 05/24/20 10 07/17/2010 Inactive triamterene-hydrochlorothiazide 75 mg-50 mg Tab RxNorm: 3108 18 1 Tablet(s) PO QD 05/24/2010 11/19/2010 Inactive Ambien 10 mg Tab RxNorm: 015147 1 Tablet(s) PO QHS 05/23/2010 010 Inactive Alprazolam 0.5 mg Tab RxNorm: 827142 2 Tablet(s) PO QD prn 05/23/20 10 05/23/2010 Inactive Premarin 1.25 mg Tab RxNorm: 374875 2 Tablet(s) PO QD 05/19/201007/12 Inactive Hydrocodone-Acetaminophen 7.5 mg-650 mg Tab RxNorm: 611985 1 Ta blet(s) PO Q4H 05/19/2010 03/20/2011 Inactive Prednisone 20 mg Tab RxNorm: 996603 1 Tablet(s) PO BID 05/17/2010 Inactive Prednisone 20 mg Tab RxNorm: 459226 1 Tablet(s) PO BID 05/06/201001/2010 Inactive Premarin 1.25 mg Tab RxNorm: 560147 Tablet(s) PO 2 M-W-F, and 1 Ul-El-Qhd-Sun 05/05/2010 08/02/2010 Inactive Premarin 1.25 mg Tab RxNorm: 264508 Tablet(s) PO 2 M-W-F, and 1 Sd-Ce-Jhw-Sun 05/04/2010 05/04/2010 Inactive Premarin 1.25 mg Tab RxNorm: 993723 Tablet(s) PO 2 M-W-F, and 1 Lo-Vt-Pvc-Sun 05/04/2010 05/03/2010 Inactive Prednisone 20 mg Tab RxNorm: 555364 1 Tablet(s) PO BID 04/27/2010 Inactive Alprazolam 0.5 mg Tab RxNorm: 179128 2 Tablet(s) PO QD prn 04/26/20 10 05/22/2010 Inactive Clindamycin 300 mg Cap RxNorm: 567905 2 Capsule(s) PO TID 04/05/2010 04/18/2010 Inactive Terbinafine 250 mg Tab RxNorm: 035454 1 Tablet(s) PO QD 04/04/2010 Inactive Hydrocodone-Acetaminophen 7.5 mg-650 mg Tab RxNorm: 940670 1 Ta blet(s) PO Q4H 03/30/2010 04/18/2010 Inactive Avelox 400 mg Tab RxNorm: 208086 1 Tablet(s) PO QD 03/09/2010 010 Inactive Hydrocodone-Acetaminophen 7.5 mg-650 mg Tab RxNorm: 412421 1 Ta blet(s) PO Q4H 03/08/2010 03/27/2010 Inactive Alprazolam 0.5 mg Tab RxNorm: 461581 2 Tablet(s) PO QD prn 03/08/20 10 04/25/2010 Inactive Klor-Con 8 mEq Tab RxNorm: 537100 1 Tablet(s) PO QD when takes lasi x 03/07/2010 08/03/2010 Inactive Premarin 1.25 mg Tab RxNorm: 857980 1 Tablet(s) PO QD 03/03/201003/11 Inactive Alprazolam 0.5 mg Tab RxNorm: 845636 1 Tablet(s) PO BID PRN 010 No Stop Date Active triamterene-hydrochlorothiazide 75 mg-50 mg Tab RxNorm: 3108 18 1 Tablet(s) PO QD 02/09/2010 02/03/2011 Inactive Hydrocodone-Acetaminophen 10 mg-750 mg Tab RxNorm: 478400 1 Tablet(s) PO Q4H PRN 02/09/2010 03/20/2011 Inactive Clonidine 0.2 mg Tab RxNorm: 815056 1 Tablet(s) PO TID 01/13/201009/2009 Inactive Alprazolam 0.5 mg Tab RxNorm: 410577 1 Tablet(s) PO BID PRN 010 01/12/2010 Inactive Hydrocodone-Acetaminophen 10 mg-750 mg Tab RxNorm: 388079 1 Tablet(s) PO Q4H PRN 01/13/2010 01/12/2010 Inactive ANGELIQ 1 mg-0.5 mg Tab RxNorm: 7970899 1 Tablet(s) PO QD 12/27/2009 01/23/2010 Inactive Lasix 40 mg Tab RxNorm: 459214 1 Tablet(s) PO QAM 12/14/2009 06/11/20 10 Inactive Vitamin B12 1000mcg Tablet RxNorm: 1 Tablet(s) PO QD No Start Date Active cyclobenzaprine 10 mg tablet RxNorm: 881707 1 Tablet(s) PO TID as needed DO NOT USE WITH BACLOFEN No Start Date Active Vitamin D 5,000 unit Tab RxNorm: 1 Tablet(s) PO QD No Start Date Active vitamin E (dl, acetate) 400 unit Cap RxNorm: 299595 1 Capsule(s ) PO QD No Start Date Active baclofen 10 mg tablet RxNorm: 659446 1 Tablet(s) PO TID as needed for muscle spasm No Start Date Active Benadryl 25 mg Cap RxNorm: 0966229 Capsule(s) PO PRN No Start Date Inactive amitriptyline 100 mg tablet RxNorm: 230431 1 Tablet(s) PO QHS No St art Date 11/27/2016 Inactive Zithromax Z-Dustin 250 mg tablet RxNorm: 779981 Tablet(s) PO as di rected No Start Date 07/22/2013 Inactive Klor-Con 8 mEq tablet,extended release RxNorm: 926426 1 Tablet( s) PO BID No Start Date 07/28/2012 Inactive scopolamine 1.5 mg 72 hr Transderm Patch RxNorm: 589235 Application TD Q72H for motion sickness No Start Date 05/25/2013 Inactive Klonopin 1 mg tablet RxNorm: 550166 1-2 Tablet(s) PO QHS as nee ded for sleep No Start Date 06/20/2015 Inactive Klor-Con M20 mEq tablet,extended release RxNorm: 446434 2 Tablet(s) PO BID to use with lasix No Start Date 11/11/2013 Inactive Bystolic 5 mg tablet RxNorm: 686406 1 Tablet(s) PO QD No Start Date 1 Inactive Bystolic 10 mg tablet RxNorm: 937346 1 Tablet(s) PO BID No Start Da te 07/06/2015 Inactive Premarin 1.25 mg Tab RxNorm: 186169 Tablet(s) PO 2 M-W-F, and 1 Bk-Hf-Ace-Sun No Start Date 05/03/2010 Inactive baclofen 20 mg tablet RxNorm: 645887 1 Tablet(s) PO TID as needed for muscle spasm No Start Date 07/22/2015 Inactive hydrocodone-acetaminophen 7.5 mg-650 mg Tab RxNorm: 703427 1 Tablet(s) PO Q4H as needed for pain No Start Date 03/20/2011 Inactive albuterol sulfate 1.25 mg/3 mL Neb Solution RxNorm: 035661 1 Unit Dose INH Q4H 2boxes No Start Date 09/06/2015 Inactive Butrans 20 mcg/hour Transderm Patch RxNorm: 602145 1 TD WEEKLY apply to skin weekly after removing previous. No Start Date 07/22/2013 Inactive Medrol (Dustin) 4 mg tablets in a dose pack RxNorm: 836920 Tablet(s) PO As Directed No Start Date 07/30/2016 Inactive hydrocodone-acetaminophen 10 mg-325 mg Tab RxNorm: 0602098 1-2 Tablet(s) PO TID as needed for pain No Start Date 03/19/2011 Inactive Klonopin 1 mg tablet RxNorm: 509980 1 Tablet(s) PO QHS No Start Date 02/28/2016 Inactive honey topical RxNorm: topical No Start Date 06/16/2018 Inactive Clonidine 0.2 mg Tab RxNorm: 314116 1 Tablet(s) PO TID No Start Date 01/12/2010 Inactive ketorolac 10 mg tablet RxNorm: 000028 1 Tablet(s) PO Q8H No Start D ate 03/18/2012 Inactive as needed for headache Singulair 10 mg Tab RxNorm: 157429 1 Tablet(s) PO QD No Start Date Inactive Premarin 1.25 mg Tab RxNorm: 987479 1 Tablet(s) PO QD No Start Date 1 Inactive Flonase 50 mcg/Actuation Nasal [place] RxNorm: 4214741 1 [place] CECELIA AL BID No Start Date 03/18/2012 Inactive Terbinafine 250 mg Tab RxNorm: 253894 1 Tablet(s) PO QD No Start Da te 04/03/2010 Inactive Fexofenadine 180 mg Tab RxNorm: 1995177 1 Tablet(s) PO QD No Start Date 09/06/2015 Inactive baclofen 20 mg tablet RxNorm: 215991 1 Tablet(s) PO TID as needed N o Start Date 05/25/2014 Inactive Diovan 160 mg Tab RxNorm: 134223 1 Tablet(s) PO QD No Start Date 09/12 Inactive mupirocin 2 % topical ointment RxNorm: 016325 1 Application TOP QID No Start Date 04/25/2016 Inactive ZOFRAN ODT 4 mg Tab, Rapid Dissolve RxNorm: 939874 1 Tablet(s) PO Q4H No Start Date 03/18/2012 Inactive as needed for nausea and vomiting Alprazolam 0.5 mg Tab RxNorm: 986853 1 Tablet(s) PO BID PRN No Star t Date 01/12/2010 Inactive cyclobenzaprine 10 mg tablet RxNorm: 691238 1 Tablet(s) PO TID as needed for muscle spasm No Start Date 10/08/2017 Inactive Albuterol 0.083% Aerosol Solution RxNorm: 1 Appl ication INH Q4H Use one ampule every 4 hrs with nebulizer as needed for shortness of breath. No Start Date 10/09/2010 Inactive lorazepam 1 mg tablet RxNorm: 485617 1 1/2 Tablet(s) PO QHS No Star t Date 02/02/2016 Inactive Melatonin 3 mg Tab RxNorm: 812743 Tablet(s) PO PRN No Start Date 07/11 Inactive Medrol (Dustin) 4 mg Tabs in a Dose Pack RxNorm: 217936 Tablet(s) PO N o Start Date 11/28/2010 Inactive lorazepam 1 mg tablet RxNorm: 174000 1 Tablet(s) PO QHS as need ed for sleep No Start Date 01/30/2016 Inactive hydrocodone-acetaminophen 10 mg-325 mg Tab RxNorm: 7087043 1-2 Tablet(s) PO QID as needed for severe pain No Start Date 03/24/2012 Inactive celecoxib 200 mg capsule RxNorm: 052200 1 Capsule(s) PO BID No Star t Date 06/26/2019 Inactive amlodipine 5 mg-benazepril 20 mg capsule RxNorm: 399375 1 Capsu le(s) PO QD No Start Date 04/10/2017 Inactive Bystolic 20 mg tablet RxNorm: 970970 1/2 Tablet(s) PO QAM No Start Date 01/23/2016 Inactive Bystolic 20 mg tablet RxNorm: 808798 1 Tablet(s) PO QAM No Start Da te 04/25/2016 Inactive Ambien 10 mg Tab RxNorm: 275729 1 Tablet(s) PO QHS No Start Date 05/11 Inactive Klor-Con 8 mEq Tab RxNorm: 813228 1 Tablet(s) PO QD when takes lasix No Start Date 03/06/2010 Inactive aspirin 81 mg tablet RxNorm: 762279 1 Tablet(s) PO QD No Start Date 0 01/29/2018 Inactive hydrocodone-acetaminophen 10 mg-325 mg Tab RxNorm: 3096718 1-2 T ablet(s) PO QID No Start Date 01/10/2012 Inactive Bystolic 10 mg tablet RxNorm: 447546 1 Tablet(s) PO QAM take one daily in the morning. No Start Date 05/28/2013 Inactive nystatin 100,000 unit/mL Oral Susp RxNorm: 333051 5 Milliliter( s) PO QID No Start Date 03/18/2012 Inactive swish and spit scopolamine 1.5 mg 72 hr Transderm Patch RxNorm: 902826 1 Unit Dose TD Q72H for motion sickness No Start Date 12/23/2013 Inactive Hydrocodone-Acetaminophen 10 mg-750 mg Tab RxNorm: 837916 1 Tablet(s) PO Q4H PRN No Start Date 01/12/2010 Inactive Soma 350 mg tablet RxNorm: 849634 1 Tablet(s) PO TID as needed for spasm No Start Date 01/12/2013 Inactive Soma 350 mg Tab RxNorm: 306061 1 Tablet(s) PO TID for spasm No Star t Date 01/31/2012 Inactive Co Q-10 400 mg capsule RxNorm: 835726 1 Capsule(s) PO QD No Start D ate 01/21/2019 Inactive nystatin 100,000 unit/gram topical cream RxNorm: 093978 Applica tion TOP BID No Start Date 03/22/2015 Inactive Exforge 5 mg-160 mg Tab RxNorm: 278145 1 Tablet(s) PO QD No Start D ate 10/09/2010 Inactive Hydrocodone-Acetaminophen 7.5 mg-650 mg Tab RxNorm: 178266 1 Ta blet(s) PO Q4H No Start Date 03/07/2010 Inactive Robaxin-750 750 mg Tab RxNorm: 744956 1-2 Tablet(s) PO TID prn spasm No Start Date 05/21/2011 Inactive amlodipine 5 mg tablet RxNorm: 205433 1 Tablet(s) PO QHS No Start D ate 09/29/2015 Inactive oxycodone-acetaminophen 10 mg-325 mg tablet RxNorm: 6357282 1-2 Tablet(s) PO Q6H No Start Date 06/16/2018 Inactive Triamterene-Hydrochlorothiazide 75 mg-50 mg Tab RxNorm: 3108 18 1 Tablet(s) PO QD No Start Date 02/08/2010 Inactive Alprazolam 0.5 mg Tab RxNorm: 100745 2 Tablet(s) PO QD prn No Start Date 03/07/2010 Inactive Bystolic 20 mg tablet RxNorm: 667275 1 Tablet(s) PO QAM No Start Da te 08/17/2015 Inactive ketorolac 10 mg tablet RxNorm: 480779 1 Tablet(s) PO QID prn he adache No Start Date 07/17/2012 Inactive acyclovir 800 mg Tab RxNorm: 198012 1 Tablet(s) PO BID No Start Date 03/18/2012 Inactive duloxetine 60 mg capsule,delayed release RxNorm: 776347 1 Capsu le(s) PO QD No Start Date 09/29/2015 Inactive Norvasc 5 mg tablet RxNorm: 157122 1 Tablet(s) PO QHS No Start Date 1 10/18/2014 Inactive promethazine 25 mg tablet RxNorm: 005074 1 Tablet(s) PO Q8H use sparingly No Start Date 07/22/2013 Inactive alprazolam 0.5 mg tablet RxNorm: 547675 3 Tablet(s) PO QHS No Start Date 06/06/2015 Inactive Lunesta 3 mg tablet RxNorm: 186976 1 Tablet(s) PO QHS No Start Date 0 09/20/2017 Inactive hydrocodone-acetaminophen 10 mg-325 mg Tab RxNorm: 5595833 1-2 Tablet(s) PO TID as needed for pain No Start Date 12/10/2011 Inactive Coricidin HBP Cough & Cold 4 mg-30 mg Tab RxNorm: 6078355 Tablet (s) PO PRN No Start Date 10/09/2010 Inactive Bactroban 2 % Ointment RxNorm: 429942 Application TOP QID to so res No Start Date 02/22/2012 Inactive Flonase 50 mcg/actuation Nasal [place] RxNorm: 693067 2 [place] QHS No Start Date 03/03/2014 Inactive Medication Administered No Medication Administered data Immunizations Vaccine Codes Date Status Tetanus, Diptheria, Pertussis CVX: 115 02/27/2014 Results Observation Observation Code Item Item Code Result Date S [facility] Location COMPLETE BLOOD COUNT 0880509 WBC 10.7 10e9/L 018 Unknown COMPLETE BLOOD COUNT [id number] RBC 4.59 10e12/L 2017 Unknown COMPLETE BLOOD COUNT [id number] HEMOGLOBIN 14.8 g/dL 12/11/19 18 Unknown COMPLETE BLOOD COUNT 0972617 HEMATOCRIT 44.9 % 12/11/19 18 Unknown COMPLETE BLOOD COUNT 7399807 MCV 97.8 fL 8 Unknown COMPLETE BLOOD COUNT 0969909 MCH 32.2 pg 8 Unknown COMPLETE BLOOD COUNT 2891684 MCHC 33.0 g/dL 8 Unknown COMPLETE BLOOD COUNT 9602612 PLATELET COUNT 261 10e9/L 10/2017 Unknown COMPLETE BLOOD COUNT 0938654 Mean Plt Volume 9.5 fL 10/2017 Unknown COMPLETE BLOOD COUNT 0832240 Neut Auto 59.9 % 8 Unknown COMPLETE BLOOD COUNT 7484504 Lymph Auto 27.4 % 12/11/19 18 Unknown COMPLETE BLOOD COUNT 0281038 [place] Auto 8.2 % 8 Unknown COMPLETE BLOOD COUNT 1427641 RDW 13.3 % 8 Unknown COMPLETE BLOOD COUNT 8371706 Eos Auto 4.1 % 8 Unknown COMPLETE BLOOD COUNT 9657006 Baso Auto 0.4 % 8 Unknown COMPLETE BLOOD COUNT [id number] Neutrophil Abs 6.41 10e9/L Unknown COMPLETE BLOOD COUNT 7798677 Lymphocyte Abs 2.93 10e9/L Unknown COMPLETE BLOOD COUNT [id number] Monocyte Abs 0.88 10e9/L 10/2017 Unknown COMPLETE BLOOD COUNT [id number] Eosinophil Abs 0.44 10e9/L Unknown COMPLETE BLOOD COUNT 3663233 RDW-SD 46.2 fL 8 Unknown COMPLETE BLOOD COUNT [id number] Basophil Abs 0.04 10e9/L 10/2017 Unknown THYROID STIMULATING HORMONE 90120 TSH 4.015 uIU/mL 12/10/2017 Unknown COMPREHENSIVE METABOLIC 47026 AST 25 U/L 2017 Unknown COMPREHENSIVE METABOLIC 31190 ALT 17 U/L 2017 Unknown COMPREHENSIVE METABOLIC 48693 BUN 19 mg/dL 2017 Unknown COMPREHENSIVE METABOLIC 86263 ALBUMIN 4.0 g/dL 2017 Unknown COMPREHENSIVE METABOLIC 10279 CHLORIDE 91 mmol/L 2017 Unknown COMPREHENSIVE METABOLIC 55121 Bili Total 0.5 mg/dL 12/10 Unknown COMPREHENSIVE METABOLIC 75917 ALK PHOS 75 U/L 2017 Unknown COMPREHENSIVE METABOLIC 24565 SODIUM 136 mmol/L 12/10 Unknown COMPREHENSIVE METABOLIC 85487 CREATININE 1.05 mg/dL 10/2017 Unknown COMPREHENSIVE METABOLIC 96170 CALCIUM 8.9 mg/dL 2017 Unknown COMPREHENSIVE METABOLIC 63500 POTASSIUM 3.4 mmol/L 12/10 Unknown COMPREHENSIVE METABOLIC 20228 Total Protein 6.5 g/dL Unknown COMPREHENSIVE METABOLIC 43975 Glucose 138 mg/dL 2017 Unknown COMPREHENSIVE METABOLIC 36846 Bicarbonate 35 mmol/L 10/2017 Unknown COMPREHENSIVE METABOLIC 32964 AGAP 10 mmol/L 2017 Unknown MEAN GLUC 8958887 Calc Mean Gluc 171 mg/dL 12/10/2017 Unkn own [facility] 82484 Cholesterol 204 mg/dL 12/10/2017 Unkno wn [facility] 83245 Triglyceride 411 mg/dL 12/10/2017 Unkn own [facility] 32685 HDL CHOLESTEROL 50 mg/dL 12/10/2017 U nknown [facility] 70477 Chol/HDL Ratio 4.08 ratio 12/10/2017 U nknown [facility] 97879 NON-HDL Chol 154 mg/dL 12/10/2017 Unkn own [facility] 62139 LDL Cholesterol N/A Trig >400 018 Unknown GLYCOSYLATED HEMOGLOBIN TEST 96129 Hgb A1c 78400-6 7.6 % 0 12/10/2017 Unknown FREE T4 39127 T4 Free 1.40 ng/dL 12/10/2017 Unknown GFR CALC 6289260 GFR Non Afr Amr 55 mL/min 12/10/2017 Unk nown GFR CALC 8704349 GFR Afr Amr >60 mL/min 12/10/2017 Unknow n GFR CALC 7627648 GFR Non Afr Amr 48 mL/min 06/28/2017 Unk nown GFR CALC 7519364 GFR Afr Amr 59 mL/min 06/28/2017 Unknown COMPREHENSIVE METABOLIC 17476 AST 32 U/L 2016 Unknown COMPREHENSIVE METABOLIC 13690 ALT 22 U/L 2016 Unknown COMPREHENSIVE METABOLIC 33887 BUN 23 mg/dL 2016 Unknown COMPREHENSIVE METABOLIC 58360 ALBUMIN 4.7 g/dL 2016 Unknown COMPREHENSIVE METABOLIC 70490 CHLORIDE 89 mmol/L 2016 Unknown COMPREHENSIVE METABOLIC 31543 Bili Total 0.5 mg/dL 06/28 Unknown COMPREHENSIVE METABOLIC 27574 ALK PHOS 90 U/L 2016 Unknown COMPREHENSIVE METABOLIC 58302 SODIUM 135 mmol/L 06/28 Unknown COMPREHENSIVE METABOLIC 68685 CREATININE 1.18 mg/dL 06/10 Unknown COMPREHENSIVE METABOLIC 05100 CALCIUM 9.7 mg/dL 2016 Unknown COMPREHENSIVE METABOLIC 45979 POTASSIUM 3.5 mmol/L 06/28 Unknown COMPREHENSIVE METABOLIC 20090 Total Protein 7.7 g/dL Unknown COMPREHENSIVE METABOLIC 07840 Glucose 129 mg/dL 2016 Unknown COMPREHENSIVE METABOLIC 92532 Bicarbonate 34 mmol/L 06/10 Unknown COMPREHENSIVE METABOLIC 93777 AGAP 12 mmol/L 2016 Unknown LIPID GROUP 68189 HDL TEST 64 MG/DL 08/27/2014 Unknown LIP[facility] GROUP 47648 TRIG 222 MG/DL 08/27/2014 Unknown LIP[facility] GROUP 98467 TEST LDL 209 MG/DL 08/27/2014 Unknown LIP[facility] GROUP 95328 CHOL 317 MG/DL 08/27/2014 Unknown LIPID GROUP 32852 RCHOL/HDL 4.95 RATIO 08/27/2014 Unknow n LIPID GROUP 64378 NON-HDL CH 253 MG/DL 08/27/2014 Unknow n GFR CALC 7043638 GFR AA >60 ML/MIN 08/27/2014 Unknown GFR CALC 1812278 GFR NON-AA >60 ML/MIN 08/27/2014 Unknown COMPLETE BLOOD COUNT 8806399 WBC 7.0 10e9/L 08/27/20 14 Unknown COMPLETE BLOOD COUNT 3416625 RBC 4.98 10e12/L 2013 Unknown COMPLETE BLOOD COUNT 0475853 HGB 15.6 g/dL 4 Unknown COMPLETE BLOOD COUNT 2443239 HCT DET 46.5 % 4 Unknown COMPLETE BLOOD COUNT 6288233 MCV 93.4 fL 4 Unknown COMPLETE BLOOD COUNT 5967738 MCH 31.3 pg 4 Unknown COMPLETE BLOOD COUNT 5650020 MCHC 33.5 g/dL 4 Unknown COMPLETE BLOOD COUNT 1922798 PLT 309 10e9/L 08/27/20 14 Unknown COMPLETE BLOOD COUNT 1370423 MPV 9.6 fL 4 Unknown COMPLETE BLOOD COUNT 7715072 CADEN % 57.2 % 4 Unknown COMPLETE BLOOD COUNT 8556586 LY % 33.2 % 4 Unknown COMPLETE BLOOD COUNT 1956260 MON % 7.3 % 4 Unknown COMPLETE BLOOD COUNT 1238833 EOS % 2.0 % 4 Unknown COMPLETE BLOOD COUNT 8229454 BASO % 0.3 % 4 Unknown COMPLETE BLOOD COUNT 5851456 RDW 13.7 % 4 Unknown COMPLETE BLOOD COUNT 9359321 ABS CADEN 4.00 10e9/L 014 Unknown COMPLETE BLOOD COUNT 6019629 ABS LYMPH 2.32 10e9/L 014 Unknown COMPLETE BLOOD COUNT 9937814 ABS MONO 0.51 10e9/L 014 Unknown COMPLETE BLOOD COUNT 5685735 ABS EOS 0.14 10e9/L 014 Unknown COMPLETE BLOOD COUNT 4036917 ABS BASO 0.02 10e9/L 014 Unknown COMPLETE BLOOD COUNT 0007818 RDW-SD 45.1 fL 4 Unknown COMPREHENSIVE METABOLIC 25306 AST 13 U/L 2013 Unknown COMPREHENSIVE METABOLIC 07106 ALT 11 IU/L 2013 Unknown COMPREHENSIVE METABOLIC 58347 BUN 23 MG/DL 2013 Unknown COMPREHENSIVE METABOLIC 95604 ALBUMIN 4.4 GM/DL 2013 Unknown COMPREHENSIVE METABOLIC 99991 CHLORIDE 99 MMOL/L 2013 Unknown COMPREHENSIVE METABOLIC 81706 BILI TOT 0.5 MG/DL 2013 Unknown COMPREHENSIVE METABOLIC 09050 ALK PHOS 56 U/L 2013 Unknown COMPREHENSIVE METABOLIC 80779 SODIUM 138 MMOL/L 08/27 Unknown COMPREHENSIVE METABOLIC 12401 CREATININE 0.95 MG/DL 08/10 Unknown COMPREHENSIVE METABOLIC 77576 CALCIUM 9.8 MG/DL 2013 Unknown COMPREHENSIVE METABOLIC 45399 POTASSIUM 3.5 MMOL/L 08/27 Unknown COMPREHENSIVE METABOLIC 24160 PROT TOT 6.8 GM/DL 2013 Unknown COMPREHENSIVE METABOLIC 68791 Glucose 90 MG/DL 2013 Unknown COMPREHENSIVE METABOLIC 35383 BICARB 34 MMOL/L 2013 Unknown COMPREHENSIVE METABOLIC 26021 ANION GAP 5 MEQ/L 2013 Unknown LIPASE 27721 LIPASE 11 IU/L 07/21/2014 Unknown AMYLASE 77944 AMYLASE 39 IU/L 07/21/2014 Unknown HEMOGLOBIN A1C (GLYCOSYLATED) 9314798 A1C [facility] 95889-1 6.2 % 03/05/2013 Unknown THYROID STIMULATING HORMONE 20636 TSH 6.986 uIU/ML 03/05/2013 Unknown COMPLETE BLOOD COUNT 7696853 WBC 12.7 10e9/L 013 Unknown COMPLETE BLOOD COUNT 2754717 RBC 4.53 10e12/L 2012 Unknown COMPLETE BLOOD COUNT 4243771 HGB 14.7 g/dL 3 Unknown COMPLETE BLOOD COUNT 8128345 HCT DET 43.1 % 3 Unknown COMPLETE BLOOD COUNT 8107532 MCV 95.1 fL 3 Unknown COMPLETE BLOOD COUNT 0346321 MCH 32.5 pg 3 Unknown COMPLETE BLOOD COUNT 4805736 MCHC 34.1 g/dL 3 Unknown COMPLETE BLOOD COUNT 2208890 PLT 346 10e9/L 03/05/20 13 Unknown COMPLETE BLOOD COUNT 3540929 MPV 9.5 fL 3 Unknown COMPLETE BLOOD COUNT 8487902 CADEN % 67.6 % 3 Unknown COMPLETE BLOOD COUNT 0429945 LY % 22.1 % 3 Unknown COMPLETE BLOOD COUNT 9661022 MON % 6.6 % 3 Unknown COMPLETE BLOOD COUNT 7586984 EOS % 3.3 % 3 Unknown COMPLETE BLOOD COUNT 2229764 BASO % 0.4 % 3 Unknown COMPLETE BLOOD COUNT 1038021 RDW 14.0 % 3 Unknown COMPLETE BLOOD COUNT 9623815 ABS CADEN 8.59 10e9/L 013 Unknown COMPLETE BLOOD COUNT 1847515 ABS LYMPH 2.81 10e9/L 013 Unknown COMPLETE BLOOD COUNT 0929661 ABS MONO 0.84 10e9/L 013 Unknown COMPLETE BLOOD COUNT 4076845 ABS EOS 0.42 10e9/L 013 Unknown COMPLETE BLOOD COUNT 4598888 ABS BASO 0.05 10e9/L 013 Unknown COMPLETE BLOOD COUNT 7190375 RDW-SD 46.0 fL 3 Unknown FREE T4 88482 FREE T4 1.14 NG/DL 03/05/2013 Unknown COMPREHENSIVE METABOLIC 83270 AST 17 U/L 2012 Unknown COMPREHENSIVE METABOLIC 74115 ALT 12 IU/L 2012 Unknown COMPREHENSIVE METABOLIC 12626 BUN 24 MG/DL 2012 Unknown COMPREHENSIVE METABOLIC 30487 ALBUMIN 4.2 GM/DL 2012 Unknown COMPREHENSIVE METABOLIC 80808 CHLORIDE 93 MMOL/L 2012 Unknown COMPREHENSIVE METABOLIC 09564 BILI TOT 0.5 MG/DL 2012 Unknown COMPREHENSIVE METABOLIC 10768 ALK PHOS 75 U/L 2012 Unknown COMPREHENSIVE METABOLIC 67738 SODIUM 141 MMOL/L 03/05 Unknown COMPREHENSIVE METABOLIC 92392 CREATININE 1.36 MG/DL 02/09 Unknown COMPREHENSIVE METABOLIC 96950 CALCIUM 9.2 MG/DL 2012 Unknown COMPREHENSIVE METABOLIC 27827 POTASSIUM 3.1 MMOL/L 03/05 Unknown COMPREHENSIVE METABOLIC 01974 PROT TOT 6.9 GM/DL 2012 Unknown COMPREHENSIVE METABOLIC 80515 Glucose 123 MG/DL 2012 Unknown COMPREHENSIVE METABOLIC 73276 BICARB 36 MMOL/L 2012 Unknown COMPREHENSIVE METABOLIC 31236 ANION GAP 12 MEQ/L 2012 Unknown GFR CALC 9287381 GFR AA 51.0L ML/MIN 03/05/2013 Unknow n GFR CALC 0184994 GFR NON-AA 42.0L ML/MIN 03/05/2013 Unkno wn COMPREHENSIVE METABOLIC 68217 AST 14 U/L 2012 Unknown COMPREHENSIVE METABOLIC 74628 ALT 11 IU/L 2012 Unknown COMPREHENSIVE METABOLIC 34323 BUN 16 MG/DL 2012 Unknown COMPREHENSIVE METABOLIC 20615 ALBUMIN 4.2 GM/DL 2012 Unknown COMPREHENSIVE METABOLIC 82242 CHLORIDE 98 MMOL/L 2012 Unknown COMPREHENSIVE METABOLIC 66136 BILI TOT 0.4 MG/DL 2012 Unknown COMPREHENSIVE METABOLIC 93891 ALK PHOS 77 U/L 2012 Unknown COMPREHENSIVE METABOLIC 05952 SODIUM 139 MMOL/L 09/25 Unknown COMPREHENSIVE METABOLIC 59282 CREATININE 0.86 MG/DL 09/10 Unknown COMPREHENSIVE METABOLIC 99536 CALCIUM 9.5 MG/DL 2012 Unknown COMPREHENSIVE METABOLIC 10713 POTASSIUM 3.8 MMOL/L 09/25 Unknown COMPREHENSIVE METABOLIC 00009 PROT TOT 6.8 GM/DL 2012 Unknown COMPREHENSIVE METABOLIC 08534 Glucose 91 MG/DL 2012 Unknown COMPREHENSIVE METABOLIC 56934 BICARB 32 MMOL/L 2012 Unknown COMPREHENSIVE METABOLIC 33102 ANION GAP 9 MEQ/L 2012 Unknown FREE T4 53509 FREE T4 0.98 NG/DL 09/25/2012 Unknown THYROID STIMULATING HORMONE 90847 TSH 1.736 uIU/ML 09/25/2012 Unknown C-REACTIVE PROTEIN (CRP) QUANT 61278 CRP 2.3 MG/DL 09/25/2012 Unknown COMPLETE BLOOD COUNT 2699008 WBC 11.9 10e9/L 013 Unknown COMPLETE BLOOD COUNT 4444008 RBC 4.87 10e12/L 2012 Unknown COMPLETE BLOOD COUNT 3681554 HGB 15.1 g/dL 3 Unknown COMPLETE BLOOD COUNT 6802781 HCT DET 44.8 % 3 Unknown COMPLETE BLOOD COUNT 5017816 MCV 92.0 fL 3 Unknown COMPLETE BLOOD COUNT 1158147 MCH 31.0 pg 3 Unknown COMPLETE BLOOD COUNT 1143817 MCHC 33.7 g/dL 3 Unknown COMPLETE BLOOD COUNT 2204509 PLT 343 10e9/L 09/25/19 13 Unknown COMPLETE BLOOD COUNT 7537638 MPV 9.0 fL 3 Unknown COMPLETE BLOOD COUNT 7628852 CADEN % 68.2 % 3 Unknown COMPLETE BLOOD COUNT 0768158 LY % 22.4 % 3 Unknown COMPLETE BLOOD COUNT 8370187 MON % 6.4 % 3 Unknown COMPLETE BLOOD COUNT 4384310 EOS % 2.7 % 3 Unknown COMPLETE BLOOD COUNT 0978763 BASO % 0.3 % 3 Unknown COMPLETE BLOOD COUNT 3816767 RDW 13.8 % 3 Unknown COMPLETE BLOOD COUNT [id number] ABS CADEN 8.12 10e9/L 013 Unknown COMPLETE BLOOD COUNT 8518011 ABS LYMPH 2.67 10e9/L 013 Unknown COMPLETE BLOOD COUNT [id number] ABS MONO 0.76 10e9/L 013 Unknown COMPLETE BLOOD COUNT 4187560 ABS EOS 0.32 10e9/L 013 Unknown COMPLETE BLOOD COUNT 3960230 ABS BASO 0.04 10e9/L 013 Unknown COMPLETE BLOOD COUNT 5180119 RDW-SD 45.6 fL 3 Unknown GFR CALC 0458787 GFR AA >60 ML/MIN 09/25/2012 Unknown GFR CALC 7958058 GFR NON-AA >60 ML/MIN 09/25/2012 Unknown ERYTHROCYTE SEDIMENTATION RATE 57257 ESR 19 MM/HR 05/06/2012 Unknown VITAMIN B 12 FOLIC ACID 41673|17589 VIT B 12 922 PG/ML 04/11 Unknown VITAMIN B 12 FOLIC ACID 81316|48360 FOLIC ACID 13.6 NG/ML Unknown URIC ACID 03799 URIC ACID 7.8 MG/DL 05/06/2012 Unknown COMPLETE BLOOD COUNT 04358 WBC 11.9 10e9/L 012 Unknown COMPLETE BLOOD COUNT 44769 RBC 5.30 10e12/L 2011 Unknown COMPLETE BLOOD COUNT 43175 HGB 16.6 g/dL 2 Unknown COMPLETE BLOOD COUNT 20997 HCT DET 47.2 % 2 Unknown COMPLETE BLOOD COUNT 62113 MCV 89.1 fL 2 Unknown COMPLETE BLOOD COUNT 11782 MCH 31.3 pg 2 Unknown COMPLETE BLOOD COUNT 39297 MCHC 35.2 g/dL 2 Unknown COMPLETE BLOOD COUNT 08017 PLT 362 10e9/L 05/06/20 12 Unknown COMPLETE BLOOD COUNT 40907 MPV 9.4 fL 2 Unknown COMPLETE BLOOD COUNT 91526 CADEN % 68.2 % 2 Unknown COMPLETE BLOOD COUNT 08167 LY % 22.0 % 2 Unknown COMPLETE BLOOD COUNT 49100 MON % 6.9 % 2 Unknown COMPLETE BLOOD COUNT 06561 EOS % 2.6 % 2 Unknown COMPLETE BLOOD COUNT 30717 BASO % 0.3 % 2 Unknown COMPLETE BLOOD COUNT 06295 RDW 12.8 % 2 Unknown COMPLETE BLOOD COUNT 17137 ABS CADEN 8.12 10e9/L 012 Unknown COMPLETE BLOOD COUNT 66604 ABS LYMPH 2.62 10e9/L 012 Unknown COMPLETE BLOOD COUNT 62731 ABS MONO 0.82 10e9/L 012 Unknown COMPLETE BLOOD COUNT 25369 ABS EOS 0.31 10e9/L 012 Unknown COMPLETE BLOOD COUNT 32655 ABS BASO 0.04 10e9/L 012 Unknown COMPLETE BLOOD COUNT 91519 RDW-SD 41.5 fL 2 Unknown GFR CALC 0897561 GFR AA >60 ML/MIN 05/06/2012 Unknown GFR CALC 3880249 GFR NON-AA 58.0L ML/MIN 05/06/2012 Unkno wn FREE T4 88308 FREE T4 1.15 NG/DL 05/06/2012 Unknown THYROID STIMULATING HORMONE 16066 TSH 1.568 uIU/ML 05/06/2012 Unknown COMPREHENSIVE METABOLIC 13335 AST 20 U/L 2011 Unknown COMPREHENSIVE METABOLIC 57590 ALT 12 IU/L 2011 Unknown COMPREHENSIVE METABOLIC 16030 BUN 20 MG/DL 2011 Unknown COMPREHENSIVE METABOLIC 96616 ALBUMIN 4.5 GM/DL 2011 Unknown COMPREHENSIVE METABOLIC 87794 CHLORIDE 91 MMOL/L 2011 Unknown COMPREHENSIVE METABOLIC 03978 BILI TOT 0.4 MG/DL 2011 Unknown COMPREHENSIVE METABOLIC 23768 ALK PHOS 73 U/L 2011 Unknown COMPREHENSIVE METABOLIC 45898 SODIUM 139 MMOL/L 05/06 Unknown COMPREHENSIVE METABOLIC 53611 CREATININE 1.02 MG/DL 04/11 Unknown COMPREHENSIVE METABOLIC 43932 CALCIUM 9.7 MG/DL 2011 Unknown COMPREHENSIVE METABOLIC 17905 POTASSIUM 3.1 MMOL/L 05/06 Unknown COMPREHENSIVE METABOLIC 59035 PROT TOT 7.3 GM/DL 2011 Unknown COMPREHENSIVE METABOLIC 90092 Glucose 118 MG/DL 2011 Unknown COMPREHENSIVE METABOLIC 57840 BICARB 33 MMOL/L 2011 Unknown COMPREHENSIVE METABOLIC 71190 ANION GAP 15 MEQ/L 2011 Unknown Procedures Procedure Codes Date URINALYSIS NONAUTO W/O SCOPE CPT-4: 17818 09/30/2018 MICROALBUMIN QUANTITATIVE CPT-4: 18450 09/30/2018 CEFTRIAXONE SODIUM INJECTION CPT-4: J0696 06/19/2018 THER/PROPH/DIAG INJ SC/IM CPT-4: 68587 06/19/2018 CEFTRIAXONE SODIUM INJECTION CPT-4: J0696 06/17/2018 THER/PROPH/DIAG INJ SC/IM CPT-4: 21449 06/17/2018 THER/PROPH/DIAG INJ SC/IM CPT-4: 44344 05/16/2018 KETOROLAC TROMETHAMINE INJ CPT-4: J1885 05/16/2018 ONDANSETRON HCL INJECTION CPT-4: J2405 05/16/2018 THER/PROPH/DIAG INJ SC/IM CPT-4: 92332 05/16/2018 ROUTINE VENIPUNCTURE CPT-4: 03557 03/20/2018 COMPREHEN METABOLIC PANEL CPT-4: 66050 03/20/2018 DEXAMETHASONE SODIUM PHOS CPT-4: J1100 02/11/2018 THER/PROPH/DIAG INJ SC/IM CPT-4: 70864 02/11/2018 TRIAMCINOLONE ACET INJ NOS CPT-4: J3301 02/11/2018 CEFTRIAXONE SODIUM INJECTION CPT-4: J0696 02/01/2018 THER/PROPH/DIAG INJ SC/IM CPT-4: 36664 02/01/2018 CEFTRIAXONE SODIUM INJECTION CPT-4: J0696 01/30/2018 THER/PROPH/DIAG INJ SC/IM CPT-4: 07677 01/30/2018 ROUTINE VENIPUNCTURE CPT-4: 97624 12/10/2017 ASSAY OF FREE THYROXINE CPT-4: 39897 12/10/2017 ASSAY THYROID STIM HORMONE CPT-4: 68455 12/10/2017 COMPREHEN METABOLIC PANEL CPT-4: 41877 12/10/2017 COMPLETE CBC W/AUTO DIFF WBC CPT-4: 87250 12/10/2017 LIPID PANEL CPT-4: 42625 12/10/2017 A1C HPLC CPT-4: 79373 12/10/2017 CEFTRIAXONE SODIUM INJECTION CPT-4: J0696 12/10/2017 THER/PROPH/DIAG INJ SC/IM CPT-4: 91168 12/10/2017 CEFTRIAXONE SODIUM INJECTION CPT-4: J0696 12/07/2017 THER/PROPH/DIAG INJ SC/IM CPT-4: 66620 12/07/2017 DEXAMETHASONE SODIUM PHOS CPT-4: J1100 12/07/2017 THER/PROPH/DIAG INJ SC/IM CPT-4: 37716 12/07/2017 CEFTRIAXONE SODIUM INJECTION CPT-4: J0696 10/08/2017 THER/PROPH/DIAG INJ SC/IM CPT-4: 93241 10/08/2017 CEFTRIAXONE SODIUM INJECTION CPT-4: J0696 09/21/2017 THER/PROPH/DIAG INJ SC/IM CPT-4: 73471 09/21/2017 CEFTRIAXONE SODIUM INJECTION CPT-4: J0696 09/20/2017 THER/PROPH/DIAG INJ SC/IM CPT-4: 33345 09/20/2017 REMOVAL OF NAIL PLATE CPT-4: 80343 08/29/2017 THER/PROPH/DIAG INJ SC/IM CPT-4: 54504 08/29/2017 TRIAMCINOLONE ACET INJ NOS CPT-4: J3301 08/29/2017 CEFTRIAXONE SODIUM INJECTION CPT-4: J0696 08/29/2017 THER/PROPH/DIAG INJ SC/IM CPT-4: 60242 08/29/2017 DESTRUCT PREMALG LESION (Cryosurgery) CPT-4: 10788 ROUTINE VENIPUNCTURE CPT-4: 85617 06/27/2017 ASSAY OF FREE THYROXINE CPT-4: 32702 06/27/2017 ASSAY THYROID STIM HORMONE CPT-4: 98640 06/27/2017 COMPREHEN METABOLIC PANEL CPT-4: 15290 06/27/2017 COMPLETE CBC W/AUTO DIFF WBC CPT-4: 12374 06/27/2017 EXC TR-EXT B9+REECE 0.5 CM< CPT-4: 78270 01/24/2017 THER/PROPH/DIAG INJ SC/IM CPT-4: 10820 08/02/2016 DEXAMETHASONE SODIUM PHOS CPT-4: J1100 08/02/2016 DESTRUCT PREMALG LESION (Cryosurgery) CPT-4: 91432 EXC TR-EXT B9+REECE 0.5 CM< CPT-4: 71034 08/01/2016 AEROBIC WOUND CULTURE & STN CPT-4: 54852 07/06/2016 CEFTRIAXONE SODIUM INJECTION CPT-4: J0696 05/25/2016 THER/PROPH/DIAG INJ SC/IM CPT-4: 00341 05/25/2016 THER/PROPH/DIAG INJ SC/IM CPT-4: 41190 04/26/2016 DEXAMETHASONE SODIUM PHOS CPT-4: J1100 04/26/2016 CEFTRIAXONE SODIUM INJECTION CPT-4: J0696 04/26/2016 THER/PROPH/DIAG INJ SC/IM CPT-4: 49345 04/26/2016 THER/PROPH/DIAG INJ SC/IM CPT-4: 73492 02/09/2016 TRIAMCINOLONE ACET INJ NOS CPT-4: J3301 02/09/2016 URINALYSIS NONAUTO W/O SCOPE CPT-4: 16403 01/24/2016 URINE CULTURE/ COLONY COUNT CPT-4: 26275 01/24/2016 THER/PROPH/DIAG INJ SC/IM CPT-4: 98872 12/08/2015 TRIAMCINOLONE ACET INJ NOS CPT-4: J3301 12/08/2015 THER/PROPH/DIAG INJ SC/IM CPT-4: 56537 10/07/2015 TRIAMCINOLONE ACET INJ NOS CPT-4: J3301 10/07/2015 DESTRUCT PREMALG LESION (Cryosurgery) CPT-4: 18017 THER/PROPH/DIAG INJ SC/IM CPT-4: 03707 03/16/2015 METHYLPREDNISOLONE 40 MG INJ CPT-4: J1030 03/16/2015 DESTRUCT PREMALG LESION (Cryosurgery) CPT-4: 28966 THER/PROPH/DIAG INJ SC/IM CPT-4: 23191 09/11/2014 METHYLPREDNISOLONE 40 MG INJ CPT-4: J1030 09/11/2014 TRIAMCINOLONE ACET INJ NOS CPT-4: J3301 09/11/2014 CEFTRIAXONE SODIUM INJECTION CPT-4: J0696 09/11/2014 THER/PROPH/DIAG INJ SC/IM CPT-4: 01394 09/11/2014 ROUTINE VENIPUNCTURE CPT-4: 79133 08/27/2014 COMPREHEN METABOLIC PANEL CPT-4: 91683 08/27/2014 COMPLETE CBC W/AUTO DIFF WBC CPT-4: 64005 08/27/2014 LIPID PANEL CPT-4: 39132 08/27/2014 ROUTINE VENIPUNCTURE CPT-4: 38121 07/21/2014 ASSAY OF AMYLASE CPT-4: 89353 07/21/2014 ASSAY OF LIPASE CPT-4: 36080 07/21/2014 THER/PROPH/DIAG INJ SC/IM CPT-4: 70158 07/15/2014 TRIAMCINOLONE ACET INJ NOS CPT-4: J3301 07/15/2014 ROUTINE VENIPUNCTURE CPT-4: 61334 05/14/2014 ASSAY OF FREE THYROXINE CPT-4: 61861 05/14/2014 ASSAY THYROID STIM HORMONE CPT-4: 33747 05/14/2014 COMPREHEN METABOLIC PANEL CPT-4: 97319 05/14/2014 COMPLETE CBC W/AUTO DIFF WBC CPT-4: 83962 05/14/2014 LIPID PANEL CPT-4: 29257 05/14/2014 CEFTRIAXONE SODIUM INJECTION CPT-4: J0696 04/21/2014 THER/PROPH/DIAG INJ SC/IM CPT-4: 95270 04/21/2014 THER/PROPH/DIAG INJ SC/IM CPT-4: 78335 04/21/2014 TRIAMCINOLONE ACET INJ NOS CPT-4: J3301 04/21/2014 THER/PROPH/DIAG INJ SC/IM CPT-4: 22204 03/04/2014 METHYLPREDNISOLONE 40 MG INJ CPT-4: J1030 03/04/2014 TRIAMCINOLONE ACET INJ NOS CPT-4: J3301 03/04/2014 CEFTRIAXONE SODIUM INJECTION CPT-4: J0696 03/04/2014 THER/PROPH/DIAG INJ SC/IM CPT-4: 88665 03/04/2014 TDAP VACCINE 7 YRS/> IM CPT-4: 38216 02/27/2014 IMMUNIZATION ADMIN CPT-4: 51963 02/27/2014 DESTRUCT PREMALG LESION (Cryosurgery) CPT-4: 77999 DESTRUCT PREMALG LES 2-14 CPT-4: 61443 01/13/2014 THER/PROPH/DIAG INJ SC/IM CPT-4: 92185 10/21/2013 METHYLPREDNISOLONE 40 MG INJ CPT-4: J1030 10/21/2013 TRIAMCINOLONE ACET INJ NOS CPT-4: J3301 10/21/2013 CEFTRIAXONE SODIUM INJECTION CPT-4: J0696 08/27/2013 THER/PROPH/DIAG INJ SC/IM CPT-4: 17836 08/27/2013 THER/PROPH/DIAG INJ SC/IM CPT-4: 03344 08/27/2013 METHYLPREDNISOLONE 40 MG INJ CPT-4: J1030 08/27/2013 TRIAMCINOLONE ACET INJ NOS CPT-4: J3301 08/27/2013 THER/PROPH/DIAG INJ SC/IM CPT-4: 52404 06/23/2013 METHYLPREDNISOLONE 40 MG INJ CPT-4: J1030 06/23/2013 TRIAMCINOLONE ACET INJ NOS CPT-4: J3301 06/23/2013 THER/PROPH/DIAG INJ SC/IM CPT-4: 09843 05/26/2013 METHYLPREDNISOLONE 40 MG INJ CPT-4: J1030 05/26/2013 TRIAMCINOLONE ACET INJ NOS CPT-4: J3301 05/26/2013 ROUTINE VENIPUNCTURE CPT-4: 64262 03/05/2013 ASSAY OF FREE THYROXINE CPT-4: 97161 03/05/2013 ASSAY THYROID STIM HORMONE CPT-4: 54681 03/05/2013 COMPREHEN METABOLIC PANEL CPT-4: 46528 03/05/2013 COMPLETE CBC W/AUTO DIFF WBC CPT-4: 65347 03/05/2013 A1C GLYCOSYLATED HEMOGLOBIN TEST CPT-4: 94965 013 DRAIN/INJECT JOINT/BURSA CPT-4: 85859 12/04/2012 METHYLPREDNISOLONE 40 MG INJ CPT-4: J1030 12/04/2012 TRIAMCINOLONE ACET INJ NOS CPT-4: J3301 12/04/2012 CEFTRIAXONE SODIUM INJECTION CPT-4: J0696 11/21/2012 THER/PROPH/DIAG INJ SC/IM CPT-4: 18630 11/21/2012 THER/PROPH/DIAG INJ SC/IM CPT-4: 87820 10/14/2012 METHYLPREDNISOLONE 40 MG INJ CPT-4: J1030 10/14/2012 TRIAMCINOLONE ACET INJ NOS CPT-4: J3301 10/14/2012 URINALYSIS NONAUTO W/O SCOPE CPT-4: 74428 09/27/2012 ROUTINE VENIPUNCTURE CPT-4: 48931 09/25/2012 ASSAY OF FREE THYROXINE CPT-4: 22501 09/25/2012 ASSAY THYROID STIM HORMONE CPT-4: 17304 09/25/2012 COMPREHEN METABOLIC PANEL CPT-4: 96875 09/25/2012 COMPLETE CBC W/AUTO DIFF WBC CPT-4: 11142 09/25/2012 C-REACTIVE PROTEIN CPT-4: 69824 09/25/2012 THER/PROPH/DIAG INJ SC/IM CPT-4: 56246 08/29/2012 METHYLPREDNISOLONE 40 MG INJ CPT-4: J1030 08/29/2012 TRIAMCINOLONE ACET INJ NOS CPT-4: J3301 08/29/2012 DESTRUCT PREMALG LESION (Cryosurgery) CPT-4: 73065 THER/PROPH/DIAG INJ SC/IM CPT-4: 17579 05/06/2012 METHYLPREDNISOLONE 40 MG INJ CPT-4: J1030 05/06/2012 TRIAMCINOLONE ACET INJ NOS CPT-4: J3301 05/06/2012 VITAMIN B 12 FOLIC ACID CPT-4: 42265|29788 05/06/2012 RBC SED RATE AUTOMATED CPT-4: 18730 05/06/2012 ROUTINE VENIPUNCTURE CPT-4: 25980 05/06/2012 ASSAY OF FREE THYROXINE CPT-4: 26709 05/06/2012 ASSAY THYROID STIM HORMONE CPT-4: 87094 05/06/2012 COMPREHEN METABOLIC PANEL CPT-4: 37593 05/06/2012 COMPLETE CBC W/AUTO DIFF WBC CPT-4: 54805 05/06/2012 ASSAY OF BLOOD/URIC ACID CPT-4: 65237 05/06/2012 THER/PROPH/DIAG INJ SC/IM CPT-4: 68679 03/19/2012 KETOROLAC TROMETHAMINE INJ CPT-4: J1885 03/19/2012 KETOROLAC TROMETHAMINE INJ CPT-4: J1885 01/30/2012 THER/PROPH/DIAG INJ SC/IM CPT-4: 93315 01/30/2012 PROMETHAZINE HCL INJECTION CPT-4: J2550 01/30/2012 THER/PROPH/DIAG INJ SC/IM CPT-4: 65223 01/24/2012 METHYLPREDNISOLONE 40 MG INJ CPT-4: J1030 01/24/2012 TRIAMCINOLONE ACET INJ NOS CPT-4: J3301 01/24/2012 THER/PROPH/DIAG INJ SC/IM CPT-4: 39323 09/13/2011 KETOROLAC TROMETHAMINE INJ CPT-4: J1885 09/13/2011 THER/PROPH/DIAG INJ SC/IM CPT-4: 25615 09/13/2011 PROMETHAZINE HCL INJECTION CPT-4: J2550 09/13/2011 CEFTRIAXONE SODIUM INJECTION CPT-4: J0696 07/20/2011 THER/PROPH/DIAG INJ SC/IM CPT-4: 74993 07/20/2011 THER/PROPH/DIAG INJ SC/IM CPT-4: 28942 07/20/2011 METHYLPREDNISOLONE INJECTION CPT-4: J2930 07/20/2011 URINALYSIS NONAUTO W/O SCOPE CPT-4: 42707 05/09/2011 CEFTRIAXONE SODIUM INJECTION CPT-4: J0696 05/09/2011 THER/PROPH/DIAG INJ SC/IM CPT-4: 37451 05/09/2011 THER/PROPH/DIAG INJ SC/IM CPT-4: 65651 05/09/2011 PROMETHAZINE HCL INJECTION CPT-4: J2550 05/09/2011 HYDRATION IV INFUSION INIT CPT-4: 72007 05/09/2011 DESTRUCT PREMALG LESION (Cryosurgery) CPT-4: 67671 DESTRUCT PREMALG LES 2-14 CPT-4: 78468 07/19/2010 REMOVAL OF SKIN TAGS <W/15 CPT-4: 52626 05/30/2010 THER/PROPH/DIAG INJ SC/IM CPT-4: 38163 04/05/2010 CEFTRIAXONE SODIUM INJECTION CPT-4: J0696 04/05/2010 TRIAMCINOLONE ACET INJ NOS CPT-4: J3301 04/05/2010 METHYLPREDNISOLONE 40 MG INJ CPT-4: J1030 04/05/2010 THER/PROPH/DIAG INJ SC/IM CPT-4: 77762 04/05/2010 TRIAMCINOLONE ACET INJ NOS CPT-4: J3301 03/09/2010 METHYLPREDNISOLONE 40 MG INJ CPT-4: J1030 03/09/2010 THER/PROPH/DIAG INJ SC/IM CPT-4: 30219 03/09/2010 THER/PROPH/DIAG INJ SC/IM CPT-4: 18662 03/09/2010 CEFTRIAXONE SODIUM INJECTION CPT-4: J0696 03/09/2010 Vital Signs Date Vital 05/28/2019 Blood Pressure 1: 126/82 Code: 8480-6 BMI: 35.0 Code: 87916-7 Heart Rate 1: 88 bpm Height: 5'4" [...] 1: 128/90 Code: 8480-6 BMI: 37.2 Code: 72816-5 Heart Rate 1: 84 bpm Height: 5'4" Respiratory Rate: 20 bpm SpO2: 95% Tempera ture: 36.6 (C) / 97.8 (F) Weight: 217 lbs 08/27/2018 Blood Pressure 1: 128/88 Code: 8480-6 BMI: 38.3 Code: 36234-2 Heart Rate 1: 84 bpm Height: 5'4" [...] 1: 119/72 Code: 8480-6 BMI: 37.4 Code: 27708-5 Heart Rate 1: 82 bpm Height: 5'4" Respiratory Rate: 12 bpm SpO2: 94% Tempera ture: 35.2 (C) / 95.4 (F) Weight: 218 lbs 12/18/2017 Blood Pressure 1: 128/86 Code: 8480-6 BMI: 37.8 Code: 73193-0 Heart Rate 1: 84 bpm Height: 5'4" [...] 1: 128/82 Code: 8480-6 BMI: 35.5 Code: 02130-2 Heart Rate 1: 84 bpm Height: 5'4" [...] 1: 128/82 Code: 8480-6 BMI: 30.2 Code: 49065-3 Heart Rate 1: 80 bpm Height: 5'4" [...] 1: 128/86 Code: 8480-6 BMI: 32.8 Code: 37618-7 Heart Rate 1: 66 bpm Height: 5'4" Respiratory Rate: 18 bpm Temperature: 36 .3 (C) / 97.3 (F) Weight: 191 lbs 06/23/2013 Blood Pressure 1: 132/94 Code: 8480-6 BMI: 34.0 Code: 45948-8 Heart Rate 1: 84 bpm Height: 5'4" Respiratory Rate: 20 bpm Temperature: 36 .8 (C) / 98.2 (F) Weight: 198 lbs 05/26/2013 Blood Pressure 1: 114/80 Code: 8480-6 BMI: 35.0 Code: 81285-5 Heart Rate 1: 80 bpm Height: 5'4" Respiratory Rate: 20 bpm Temperature: 36 .4 (C) / 97.6 (F) Weight: 204 lbs 04/16/2013 Blood Pressure 1: 114/82 Code: 8480-6 BMI: 36.7 Code: 65562-9 Heart Rate 1: 84 bpm Height: 5'4" Respiratory Rate: 20 bpm Temperature: 36 .7 (C) / 98.0 (F) Weight: 214 lbs 03/05/2013 Blood Pressure 1: 136/90 Code: 8480-6 BMI: 37.1 Code: 72708-6 Heart Rate 1: 84 bpm Height: 5'4" [...] 1: 168/114 Code: 8480-6 BMI: 36.2 Code: 50349-3 Heart Rate 1: 104 bpm Height: 5'4" Respiratory Rate: 20 bpm Temperature: 36 .8 (C) / 98.2 (F) Weight: 211 lbs 11/22/2012 Blood Pressure 1: 128/90 Code: 8480-6 Heart Rate 1: 88 bpm Respiratory Rate: 20 bpm SpO2: 96% Temperature: 36.8 (C) / 98.2 (F) 11/21/2012 Blood Pressure 1: 146/100 Code: 8480-6 BMI: 35.7 Code: 34412-2 Heart Rate 1: 96 bpm Height: 5'4" [...] 1: 138/100 Code: 8480-6 BMI: 35.7 Code: 59683-6 Heart Rate 1: 96 bpm Height: 5'4" Respiratory Rate: 20 bpm Temperature: 36 .8 (C) / 98.2 (F) Weight: 208 lbs 05/06/2012 Blood Pressure 1: 154/102 Code: 8480-6 BMI: 34.7 Code: 26260-0 Heart Rate 1: 116 bpm Height: 5'4" Respiratory Rate: 20 bpm Temperature: 36 .8 (C) / 98.2 (F) Weight: 202 lbs 04/03/2012 Blood Pressure 1: 134/94 Code: 8480-6 BMI: 34.8 Code: 80861-0 Heart Rate 1: 108 bpm Height: 5'4" Respiratory Rate: 20 bpm Temperature: 36 .8 (C) / 98.2 (F) Weight: 203 lbs 03/19/2012 Blood Pressure 1: 148/106 Code: 8480-6 BMI: 35.0 Code: 71181-6 Heart Rate 1: 100 bpm Height: 5'4" Respiratory Rate: 20 bpm Temperature: 36 .6 (C) / 97.9 (F) Weight: 204 lbs 02/22/2012 Blood Pressure 1: 146/94 Code: 8480-6 He art Rate 1: 88 bpm 02/21/2012 Blood Pressure 1: 172/120 Code: 8480-6 B lood Pressure 2: 152/106 Code: 8480-6 Heart Rate 1: 116 bpm 02/20/2012 Blood Pressure 1: 160/100 Code: 8480-6 BMI: 32.0 Code: 92673-7 Heart Rate 1: 84 bpm Height: 5'7" Temperature: 36.5 (C) / 97.7 (F) Weight: 204 lbs 01/30/2012 Blood Pressure 1: 152/110 Code: 8480-6 BMI: 32.0 Code: 03201-6 Heart Rate 1: 116 bpm Height: 5'7" Respiratory Rate: 20 bpm Temperature: 37 .0 (C) / 98.6 (F) Weight: 204 lbs 01/24/2012 Blood Pressure 1: 146/100 Code: 8480-6 BMI: 32.0 Code: 74340-8 Heart Rate 1: 100 bpm Height: 5'7" Respiratory Rate: 20 bpm Temperature: 36 .7 (C) / 98.0 (F) Weight: 204 lbs 01/10/2012 Blood Pressure 1: 156/94 Code: 8480-6 BMI: 32.6 Code: 06852-8 Heart Rate 1: 72 bpm Height: 5'7" Respiratory Rate: 20 bpm Temperature: 36 .8 (C) / 98.2 (F) Weight: 208 lbs 12/11/2011 Blood Pressure 1: 146/100 Code: 8480-6 Heart Rat e 1: 116 bpm Height: 5'7" Respiratory Rate: 20 bpm Temperature: 36.9 (C) / 98.4 (F) We ight: 11/09/2011 Blood Pressure 1: 148/96 Code: 8480-6 BMI: 32.1 Code: 99726-4 Heart Rate 1: 116 bpm Height: 5'7" Respiratory Rate: 20 bpm Temperature: 36 .7 (C) / 98.0 (F) Weight: 205 lbs 09/13/2011 Blood Pressure 1: 126/88 Code: 8480-6 Heart Rate 1: 88 bpm Height: 5'7" Respiratory Rate: 20 bpm Temperature: 36.9 (C) / 98.4 (F) We ight: 08/31/2011 Blood Pressure 1: 118/82 Code: 8480-6 BMI: 32.0 Code: 28855-6 Heart Rate 1: 80 bpm Height: 5'7" Temperature: 36.4 (C) / 97.6 (F) Weight: 204 lbs 07/06/2011 Blood Pressure 1: 128/86 Code: 8480-6 BMI: 30.9 Code: 74682-0 Heart Rate 1: 92 bpm Height: 5'7" Respiratory Rate: 20 bpm Temperature: 36 .9 (C) / 98.4 (F) Weight: 197 lbs 06/06/2011 Blood Pressure 1: 112/74 Code: 8480-6 BMI: 31.0 Code: 74704-2 Heart Rate 1: 72 bpm Height: 5'7" [...] 1: 128/92 Code: 8480-6 BMI: 33.6 Code: 74557-1 Heart Rate 1: 104 bpm Height: 5'4" [...] Check-up Encounters Encounter Performer Location Codes Date ([id number]) OFFICE/OUTPATIENT VISIT EST Diagnosis: Essential (primary) hypertension[ICD10: I10] Diagnosis: Fall from bed, sequela[ICD10: W06.XXXS] María Elena BRAUNGAEL Fabiola APPIAH DO [facility] CPT-4: 24854 05/28/2019 ([id number]) NURSE/OUTPATIENT VISIT EST Diagnosis: Essential (primary) hypertension[ICD10: I10] María Elena APPIAH DO [facility] CPT-4: 72131 05/19/2019 ([id number]) OFFICE/OUTPATIENT VISIT EST Diagnosis: Essential (primary) hypertension[ICD10: I10] Diagnosis: Type 2 diabetes mellitus with hyperglycemia[ICD10: E11.65] Diagnosis: Intervertebral disc disorders with radiculopathy, 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] Diagnosis: Hormone replacement therapy[ICD10: Z79.890] María Elena ELLISLINE Fabiola APPIAH DO [facility] CPT-4: 28745 01/22/2019 ([id number]) OFFICE/OUTPATIENT VISIT EST Diagnosis: Essential (primary) hypertension[ICD10: I10] Diagnosis: Type 2 diabetes mellitus with hyperglycemia[ICD10: E11.65] María Elena APPIAH [address] [facility] CPT-4: 10251 09/30/2018 ([id number]) OFFICE/OUTPATIENT VISIT EST Diagnosis: Pain in left elbow[ICD10: M25.522] Diagnosis: Acute stress reaction[ICD10: F43.0] Diagnosis: Primary insomnia[ICD10: F51.01] Diagnosis: Abnormal weight gain[ICD10: R63.5] María Elena Seamusdawn MONTEROAPARNACIARRA JEAN Fabiola APPIAH [address] [facility] CPT-4: 50637 08/27/2018 ([id number]) OFFICE/OUTPATIENT VISIT EST Diagnosis: Acute recurrent sinusitis, unspecified[ICD10: J01.91] Diagnosis: Follicular disorder, unspecified[ICD10: L73.9] Diagnosis: Tinea corporis[ICD10: B35.4] María Elenamarcella ELLISLINE Fabiola APPIAH [address] [facility] CPT-4: 81854 08/09/2018 ([id number]) OFFICE/OUTPATIENT VISIT EST Diagnosis: Tinea corporis[ICD10: B35.4] Diagnosis: Anxiety disorder, unspecified[ICD10: F41.9] Diagnosis: Menopausal and female climacteric states[ICD10: N95.1] María Elena APPIAH DO [facility] CPT-4: 74849 07/22/2018 ([id number]) NURSE/OUTPATIENT VISIT EST Diagnosis: Cellulitis of right toe[ICD10: L03.031] María Elena APPIAH DO [facility] CPT-4: 21307 06/19/2018 ([id number]) OFFICE/OUTPATIENT VISIT EST Diagnosis: Cellulitis of right toe[ICD10: L03.031] Kathleen APPIAH DO [facility] CPT-4: 66377 06/17/2018 ([id number]) OFFICE/OUTPATIENT VISIT EST Diagnosis: Migraine without aura, intractable, without status migrainosus[ICD10: G43.019] Diagnosis: Zoster without complications[ICD10: B02.9] Kathleen APPIAH DO [facility] CPT-4: 42216 05/16/2018 ([id number]) OFFICE/OUTPATIENT VISIT EST Diagnosis: Cellulitis of right lower limb[ICD10: L03.115] Kathleen APPIAH DO [facility] CPT-4: 65848 03/20/2018 ([id number]) OFFICE/OUTPATIENT VISIT EST Diagnosis: Cellulitis of right lower limb[ICD10: L03.115] Kathleen APPIAH DO [facility] CPT-4: 06638 03/18/2018 ([id number]) OFFICE/OUTPATIENT VISIT EST Diagnosis: Cellulitis of right lower limb[ICD10: L03.115] Kathleen APPIAH DO [facility] CPT-4: 35215 03/15/2018 ([id number]) OFFICE/OUTPATIENT VISIT EST Diagnosis: Acute sinusitis, unspecified[ICD10: J01.90] Kathleen APPIAH DO [facility] CPT-4: 89164 02/11/2018 ([id number]) NURSE/OUTPATIENT VISIT EST Diagnosis: Otitis media, unspecified, right ear[ICD10: H66.91] María Elena APPIAH [address] [facility] CPT-4: 62414 02/01/2018 ([id number]) OFFICE/OUTPATIENT VISIT EST Diagnosis: Acute suppurative otitis media without spontaneous rupture of ear drum, left ear[ICD10: H66.002] Diagnosis: Abnormal weight gain[ICD10: R63.5] Diagnosis: Intervertebral disc disorders with radiculopathy, 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] Kathleen APPIAH DO [facility] CPT-4: 99 214 01/30/2018 ([id number]) PREV VISIT EST AGE 40-64 Diagnosis: Encounter for general adult medical examination without abnormal findings[ICD10: Z00.00] Diagnosis: Essential (primary) hypertension[ICD10: I10] Diagnosis: Mixed hyperlipidemia[ICD10: E78.2] Diagnosis: Type 2 diabetes mellitus with hyperglycemia[ICD10: E11.65] Diagnosis: 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] María Elena APPIAH [address] [facility] CPT-4: 94884 12/18/2017 ([id number]) OFFICE/OUTPATIENT VISIT EST Diagnosis: Cellulitis of right toe[ICD10: L03.031] Diagnosis: Mixed hyperlipidemia[ICD10: E78.2] Diagnosis: Essential (primary) hypertension[ICD10: I10] Diagnosis: Hyperglycemia, unspecified[ICD10: R73.9] Diagnosis: Nontoxic goiter, 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] María Elena APPIAH [address] [facility] CPT-4: 84940 12/10/2017 ([id number]) OFFICE/OUTPATIENT VISIT EST Diagnosis: Cellulitis of right toe[ICD10: L03.031] Diagnosis: Acute sinusitis, unspecified[ICD10: J01.90] Kathleen APPIAH [address] [facility] CPT-4: 33096 12/07/2017 OFFICE/OUTPATIENT VISIT EST Diagnosis: Acute maxillary sinusitis, unspecified[ICD10: J01.00] Kathleen APPIAH DO [facility] CPT-4: 20148 10/08/2017 ([id number]) OFFICE/OUTPATIENT VISIT EST Diagnosis: Cellulitis of left toe[ICD10: L03.032] María Elena APPIAH [address] [facility] CPT-4: 35743 09/21/2017 ([id number]) OFFICE/OUTPATIENT VISIT EST Diagnosis: Insomnia, unspecified[ICD10: G47.00] Diagnosis: Major depressive disorder, single episode, unspecified[ICD10: F32.9] Diagnosis: Anxiety disorder, unspecified[ICD10: F41.9] Diagnosis: Cellulitis of left toe[ICD10: L03.032] Diagnosis: Snoring[ICD10: R06.83] Kathleen APPIAH DO [facility] CPT-4: 40769 09/20/2017 ([id number]) OFFICE/OUTPATIENT VISIT EST Diagnosis: Cellulitis of left toe[ICD10: L03.032] María Elena Waymindivictorino ORTA [address] [facility] CPT-4: 47135 07/19/2017 OFFICE/OUTPATIENT VISIT EST Diagnosis: Chronic sinusitis, unspecified[ICD10: J32.9] Diagnosis: Generalized hyperhidrosis[ICD10: R61] Kathleen APPIAH [address] [facility] CPT-4: 76068 06/27/2017 ([id number]) OFFICE/OUTPATIENT VISIT EST Diagnosis: Intervertebral disc disorders with radiculopathy, 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] Diagnosis: Primary insomnia[ICD10: F51.01] Diagnosis: Other fatigue[ICD10: R53.83] María Elena JUARES AlanJj MARIVEL [address] [facility] CPT-4: 13352 04/10/2017 ([id number]) OFFICE/OUTPATIENT VISIT EST Diagnosis: Primary insomnia[ICD10: F51.01] Diagnosis: Localized edema[ICD10: R60.0] Diagnosis: 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] María Elena JUARES AlanJj TD [facility] CPT-4: 62933 12/13/2016 ([id number]) OFFICE/OUTPATIENT VISIT EST Diagnosis: Primary insomnia[ICD10: F51.01] Diagnosis: Cyanosis[ICD10: R23.0] María Elena JUARES AlanJj SEAMUSGALINA [address] [facility] CPT-4: 45588 11/01/2016 ([id number]) PREV VISIT EST AGE 40-64 Diagnosis: Encounter for gynecological examination (general) (routine) without abnormal findings[ICD10: Z01.419] Diagnosis: Encounter for routine child health examination without abnormal findings[ICD10: Z00.129] María Elena APPIAH DO [facility] CPT-4: 61356 10/17/2016 ([id number]) OFFICE/OUTPATIENT VISIT EST Diagnosis: Other seasonal allergic rhinitis[ICD10: J30.2] María Elena APPIAH DO [facility] CPT-4: 21399 10/10/2016 ([id number]) OFFICE/OUTPATIENT VISIT EST Diagnosis: Pain in left arm[ICD10: M79.602] Diagnosis: Contact with and (suspected) exposure to potentially hazardous body fluids[ICD10: Z77.21] Diagnosis: 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, 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] Diagnosis: Unspecified open wound, right foot, sequela[ICD10: S91.301S] María Elena APPIAH DO [facility] CPT-4: 85999 09/19/2016 ([id number]) OFFICE/OUTPATIENT VISIT EST Diagnosis: Chronic sinusitis, unspecified[ICD10: J32.9] Diagnosis: Allergic rhinitis due to pollen[ICD10: J30.1] María Elena APPIAH [employer] CPT-4: 30543 08/24/2016 ([id number]) OFFICE/OUTPATIENT VISIT EST Diagnosis: Acute bronchitis, unspecified[ICD10: J20.9] María Elena APPIAH DO [facility] CPT-4: 83150 08/16/2016 ([id number]) OFFICE/OUTPATIENT VISIT EST Diagnosis: Otitis media, unspecified, right ear[ICD10: H66.91] Diagnosis: Acute bronchitis, unspecified[ICD10: J20.9] María Elena APPIAH DO [facility] CPT-4: 51507 08/10/2016 ([id number]) OFFICE/OUTPATIENT VISIT EST Diagnosis: Acute recurrent sinusitis, unspecified[ICD10: J01.91] Diagnosis: Allergic rhinitis due to pollen[ICD10: J30.1] María Elena APPIAH DO [facility] CPT-4: 86446 08/02/2016 ([id number]) OFFICE/OUTPATIENT VISIT EST Diagnosis: Pain in unspecified joint[ICD10: M25.50] María Elena APPIAH DO [facility] CPT-4: 20191 07/27/2016 OFFICE/OUTPATIENT VISIT EST Diagnosis: 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] Diagnosis: Acute recurrent sinusitis, unspecified[ICD10: J01.91] Diagnosis: Other fatigue[ICD10: R53.83] Diagnosis: Primary insomnia[ICD10: F51.01] Diagnosis: Pain in unspecified joint[ICD10: M25.50] María Elena APPIAH DO [facility] CPT-4: 75862 07/20/2016 ([id number]) OFFICE/OUTPATIENT VISIT EST Diagnosis: Blister (nonthermal), left great toe, initial encounter[ICD10: S90.422A] Loan APPIAH [address] [facility] CPT-4: 38682 ([id number]) OFFICE/OUTPATIENT VISIT EST Diagnosis: Acute recurrent sinusitis, unspecified[ICD10: J01.91] María Elena APPIAH DO [facility] CPT-4: 06198 05/25/2016 ([id number]) OFFICE/OUTPATIENT VISIT EST Diagnosis: Acute sinusitis, unspecified[ICD10: J01.90] María Elena APPIAH DO [facility] CPT-4: 89281 04/26/2016 ([id number]) OFFICE/OUTPATIENT VISIT EST Diagnosis: Flushing[ICD10: R23.2] Diagnosis: Primary insomnia[ICD10: F51.01] María Elena APPIAH DO [facility] CPT-4: 61237 03/02/2016 ([id number]) OFFICE/OUTPATIENT VISIT EST Diagnosis: Other seasonal allergic rhinitis[ICD10: J30.2] Loan APPIAH DO [facility] CPT-4: 10565 02/09/2016 ([id number]) OFFICE/OUTPATIENT VISIT EST Diagnosis: Primary insomnia[ICD10: F51.01] Diagnosis: Urinary tract infection, site not specified[ICD10: N39.0] María Elena APPIAH [facility] CPT-4: 55054 01/24/2016 ([id number]) OFFICE/OUTPATIENT VISIT EST Diagnosis: Other specified disorders of Eustachian tube, bilateral[ICD10: H69.83] Diagnosis: Allergic rhinitis, unspecified[ICD10: J30.9] Loan APPIAH [facility] CPT-4: 49935 12/23/2015 ([id number]) OFFICE/OUTPATIENT VISIT EST Diagnosis: Acute recurrent sinusitis, unspecified[ICD10: J01.91] Diagnosis: 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] Diagnosis: Allergic rhinitis, unspecified[ICD10: J30.9] María Elena APPIAH [facility] CPT-4: 45144 12/08/2015 ([id number]) OFFICE/OUTPATIENT VISIT EST Diagnosis: Allergic rhinitis, unspecified[ICD10: J30.9] Diagnosis: Pain in unspecified joint[ICD10: M25.50] María Elena APPIAH [facility] CPT-4: 82307 10/07/2015 ([id number]) OFFICE/OUTPATIENT VISIT EST Diagnosis: Essential (primary) hypertension[ICD10: I10] María Elena APPIAH [facility] CPT-4: 29052 10/06/2015 OFFICE/OUTPATIENT VISIT EST Diagnosis: Localized enlarged lymph nodes[ICD10: R59.0] Diagnosis: Local infection of the skin and subcutaneous tissue, unspecified[ICD10: L08.9] June Flores MARÍA ELENA APPIAH [facility] CPT- 4: 22999 09/14/2015 ([id number]) OFFICE/OUTPATIENT VISIT EST Diagnosis: Essential (primary) hypertension[ICD10: I10] Diagnosis: Actinic keratosis[ICD10: L57.0] María Elena APPIAH [facility] CPT-4: 21837 09/07/2015 ([id number]) OFFICE/OUTPATIENT VISIT EST Diagnosis: Essential (primary) hypertension[ICD10: I10] Diagnosis: Acute stress reaction[ICD10: F43.0] María Elena APPIAH DO [facility] CPT-4: 90337 08/18/2015 ([id number]) OFFICE/OUTPATIENT VISIT EST Diagnosis: Essential (primary) hypertension[ICD10: I10] María Elena APPIAH DO [facility] CPT-4: 87027 07/07/2015 ([id number]) OFFICE/OUTPATIENT VISIT EST Diagnosis: Essential (primary) hypertension[ICD10: I10] María Elena APPIAH DO [facility] CPT-4: 07948 06/24/2015 ([id number]) OFFICE/OUTPATIENT VISIT EST Diagnosis: Essential (primary) hypertension[ICD10: I10] María Elena APPIAH DO [facility] CPT-4: 58540 06/21/2015 ([id number]) OFFICE/OUTPATIENT VISIT EST Diagnosis: Essential (primary) hypertension[ICD10: I10] Diagnosis: Mixed hyperlipidemia[ICD10: E78.2] Diagnosis: Acute stress reaction[ICD10: F43.0] Diagnosis: Primary insomnia[ICD10: F51.01] María Elena APPIAH DO [facility] CPT-4: 81906 06/16/2015 ([id number]) OFFICE/OUTPATIENT VISIT EST Diagnosis: INSOMNIA NOS[ICD9: 780.52] Diagnosis: HYPERTENSION[ICD9: 401.9] Diagnosis: Stress reaction[ICD9: 308.9] María Elena APPIAH DO [facility] CPT-4: 25292 06/02/2015 ([id number]) OFFICE/OUTPATIENT VISIT EST Diagnosis: HYPERTENSION[ICD9: 401.9] Diagnosis: Stress reaction[ICD9: 308.9] María Elena APPIAH DO [facility] CPT-4: 08748 05/20/2015 ([id number]) OFFICE/OUTPATIENT VISIT EST Diagnosis: Skin lesion[ICD9: 709.9] 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] María Elena APPIAH DO [facility] CPT-4: 04257 05/10/2015 ([id number]) OFFICE/OUTPATIENT VISIT EST Diagnosis: SINUSITIS, ACUTE[ICD9: 461.9] Diagnosis: ALLERGIC RHINITIS[ICD9: 477.9] Diagnosis: DERMATITIS NOS[ICD9: 692.9] María Elena REHMAN [facility] CPT-4: 50582 03/16/2015 OFFICE/OUTPATIENT VISIT EST Diagnosis: Otitis media[ICD9: 382.9] Diagnosis: SINUSITIS, ACUTE[ICD9: 461.9] June APPIAH [facility] CPT-4: 56671 09/11/2014 ([id number]) OFFICE/OUTPATIENT VISIT EST Diagnosis: HYPERLIPIDEMIA NEC/NOS[ICD9: 272.4] María Elena APPIAH DO [facility] CPT-4: 03469 08/31/2014 ([id number]) OFFICE/OUTPATIENT VISIT EST Diagnosis: - I - HYPERTENSION[ICD9: 401.9] Diagnosis: HYPERLIPIDEMIA NEC/NOS[ICD9: 272.4] María Elena APPIAH [facility] CPT-4: 32100 08/27/2014 ([id number]) OFFICE/OUTPATIENT VISIT EST Diagnosis: ABDOMINAL PAIN[ICD9: 789.00] Diagnosis: DYSPEPSIA[ICD9: 536.8] Diagnosis: Thoracic back pain[ICD9: 724.1] María Elena APPIAH [facility] CPT-4: 58260 07/21/2014 ([id number]) OFFICE/OUTPATIENT VISIT EST Diagnosis: ALLERGIC RHINITIS[ICD9: 477.9] María Elena APPIAH DO [facility] CPT-4: 36980 07/15/2014 ([id number]) OFFICE/OUTPATIENT VISIT EST Diagnosis: EDEMA[ICD9: 782.3] Diagnosis: Chronic insomnia[ICD9: 780.52] María Elena APPIAH DO [facility] CPT-4: 40765 05/18/2014 ([id number]) OFFICE/OUTPATIENT VISIT EST Diagnosis: Thyromegaly[ICD9: 240.9] Diagnosis: - I - HYPERTENSION[ICD9: 401.9] Diagnosis: ROUTINE MEDICAL EXAM[ICD9: V70.0] Diagnosis: EDEMA[ICD9: 782.3] María Elean APPIAH [facility] CPT-4: 55048 05/14/2014 OFFICE/OUTPATIENT VISIT EST Diagnosis: BRONCHITIS, ACUTE[ICD9: 466.0] Diagnosis: SINUSITIS, ACUTE[ICD9: 461.9] María Elena APPIAH [facility] CPT-4: 74258 04/21/2014 OFFICE/OUTPATIENT VISIT EST Diagnosis: SINUSITIS, ACUTE[ICD9: 461.9] June Gabriellafatimah APPIAH [facility] CPT-4: 13489 03/04/2014 ([id number]) OFFICE/OUTPATIENT VISIT EST Diagnosis: VACCINE FOR TDAP[ICD10: Z23] [facility] CPT-4: 32890 02/27/2014 ([id number]) OFFICE/OUTPATIENT VISIT EST Diagnosis: Seborrheic keratoses, inflamed[ICD9: 702.11] Diagnosis: ACTINIC KERATOSIS[ICD9: 702.0] Diagnosis: INSOMNIA NOS[ICD9: 780.52] María Elena [facility] CPT-4: 50748 01/13/2014 OFFICE/OUTPATIENT VISIT EST Diagnosis: EUSTACHIAN TUBE DYSFUNCTION[ICD9: 381.81] Diagnosis: ALLERGIC RHINITIS[ICD9: 477.9] Diagnosis: Serous otitis media[ICD9: 381.4] María Elena [facility] CPT-4: 42598 12/24/2013 ([id number]) OFFICE/OUTPATIENT VISIT EST Diagnosis: SINUSITIS, ACUTE[ICD9: 461.9] Diagnosis: ALLERGIC RHINITIS[ICD9: 477.9] Diagnosis: EUSTACHIAN TUBE DYSFUNCTION[ICD9: 381.81] Mar[facility] CPT[facility]: 83924 11/12/2013 ([id number]) OFFICE/OUTPATIENT VISIT EST Diagnosis: ALLERGIC RHINITIS[ICD9: 477.9] Diagnosis: SINUSITIS, ACUTE[ICD9: 461.9] María Elena [facility] CPT-4: 56702 10/21/2013 ([id number]) OFFICE/OUTPATIENT VISIT EST Diagnosis: ASYMPTOMATIC VARICOSE VEINS[ICD9: 454.9] Diagnosis: INSOMNIA NOS[ICD9: 780.52] María Elena [facility] CPT-4: 10951 09/22/2013 OFFICE/OUTPATIENT VISIT EST Diagnosis: SINUSITIS, ACUTE[ICD9: 461.9] June Sandra [facility] CPT-4: 90915 08/27/2013 ([id number]) OFFICE/OUTPATIENT VISIT EST Diagnosis: CEPHALGIA[ICD9: 784.0] Diagnosis: CEPHALGIA, TENSION[ICD9: 307.81] 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] María Elena [facility] CPT-4: 18875 08/04/2013 ([id number]) OFFICE/OUTPATIENT VISIT EST Diagnosis: Cervicalgia[ICD9: 723.1] Diagnosis: SPASM OF MUSCLE[ICD9: 728.85] Diagnosis: CEPHALGIA, TENSION[ICD9: 307.81] María Elena [facility] CPT-4: 70778 07/23/2013 ([id number]) OFFICE/OUTPATIENT VISIT EST 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] Diagnosis: ALLERGIC RHINITIS[ICD9: 477.9] María Elena [facility] CPT-4: 19208 06/23/2013 ([id number]) OFFICE/OUTPATIENT VISIT EST Diagnosis: ALLERGIC RHINITIS[ICD9: 477.9] Diagnosis: ACUTE SEROUS OTITIS MEDIA[ICD9: 381.01] 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] María Elena APPIAH [facility] CPT-4: 27901 05/26/2013 ([id number]) OFFICE/OUTPATIENT VISIT EST Diagnosis: HYPERTENSION[ICD9: 401.9] Diagnosis: EDEMA[ICD9: 782.3] Diagnosis: Serous otitis media[ICD9: 381.4] María Elena JUARES AlanJj [facility] CPT-4: 60560 04/16/2013 ([id number]) OFFICE/OUTPATIENT VISIT EST Diagnosis: SINUSITIS, ACUTE[ICD9: 461.9] Diagnosis: ALLERGIC RHINITIS[ICD9: 477.9] Diagnosis: EDEMA[ICD9: 782.3] Diagnosis: Thyromegaly[ICD9: 240.9] Diagnosis: MALAISE AND FATIGUE[ICD9: 780.79] María Elena Lopez Fabiola [facility] CPT-4: 32206 03/05/2013 ([id number]) OFFICE/OUTPATIENT VISIT EST Diagnosis: PAIN, LOWER BACK[ICD9: 724.2] Diagnosis: SPASM OF MUSCLE[ICD9: 728.85] María Elena JUARES AlanJj [facility] CPT-4: 47694 12/23/2012 OFFICE/OUTPATIENT VISIT EST Diagnosis: Low back pain[ICD9: 724.2] Lashawn Hicks [facility] CPT-4: 14715 12/16/2012 ([id number]) OFFICE/OUTPATIENT VISIT EST Diagnosis: PAIN, LOWER BACK[ICD9: 724.2] Diagnosis: SCIATICA[ICD9: 724.3] Diagnosis: Lumbar herniated disc[ICD9: 722.10] María Elena COLON AlanJj [facility] CPT-4: 99532 12/09/2012 ([id number]) OFFICE/OUTPATIENT VISIT EST Diagnosis: PAIN, LOWER BACK[ICD9: 724.2] Diagnosis: SCIATICA[ICD9: 724.3] Diagnosis: LUMBAR DISC DISPLACEMENT[ICD9: 722.10] María Elena MARIN AlanJj [facility] CPT-4: 65695 12/04/2012 OFFICE/OUTPATIENT VISIT EST Diagnosis: Pneumonia[ICD9: 486] Mary JUARES AlanJj [facility] CPT-4: 11497 11/22/2012 ([id number]) OFFICE/OUTPATIENT VISIT EST Diagnosis: PNEUMONIA, ORGANISM[ICD9: 486] Diagnosis: Exacerbation of RAD (reactive airway disease)[ICD9: 493.92] María Elenamarcella APPIAH DO [facility] CPT-4: 22199 11/21/2012 OFFICE/OUTPATIENT VISIT EST Diagnosis: HYPERTENSION[ICD9: 401.9] Diagnosis: Cephalgia[ICD9: 784.0] Lashawn APPIAH DO [facility] CPT-4: 84166 10/29/2012 ([id number]) OFFICE/OUTPATIENT VISIT EST Diagnosis: MALAISE AND FATIGUE[ICD9: 780.79] Diagnosis: ARTHRALGIA-MULTIPLE SITES[ICD9: 719.49] María Elena APPIAH DO [facility] CPT-4: 43223 10/14/2012 ([id number]) OFFICE/OUTPATIENT VISIT EST Diagnosis: URINARY FREQUENCY[ICD9: 788.41] María Elena APPIAH DO [facility] CPT-4: 78116 09/27/2012 ([id number]) OFFICE/OUTPATIENT VISIT EST Diagnosis: MALAISE AND FATIGUE[ICD9: 780.79] Diagnosis: ARTHRALGIA-MULTIPLE SITES[ICD9: 719.49] María Elena APPIAH DO [facility] CPT-4: 98266 09/25/2012 ([id number]) OFFICE/OUTPATIENT VISIT EST Diagnosis: SINUSITIS, ACUTE[ICD9: 461.9] Diagnosis: EUSTACHIAN TUBE DYSFUNCTION[ICD9: 381.81] María Elena APPIAH DO [facility] CPT-4: 90916 08/29/2012 OFFICE/OUTPATIENT VISIT EST Diagnosis: ACTINIC KERATOSIS[ICD9: 702.0] Diagnosis: Inflamed seborrheic keratosis[ICD9: 702.11] Diagnosis: Skin cancer of face[ICD9: 173.31] Diagnosis: HYPERTENSION[ICD9: 401.9] María Elena Waymindivictorino ValdesJj [facility] CPT-4: 84512 08/12/2012 ([id number]) OFFICE/OUTPATIENT VISIT EST Diagnosis: ARTHRALGIA-MULTIPLE SITES[ICD9: 719.49] Diagnosis: GOUT[ICD9: 274.9] Diagnosis: HYPERTENSION[ICD9: 401.9] Diagnosis: Tachycardia[ICD9: 785.0] María Elenagael MONTEROQUELINE AlanJj FRITZ REDDY [facility] CPT-4: 01255 05/06/2012 ([id number]) OFFICE/OUTPATIENT VISIT EST Diagnosis: INSOMNIA NOS[ICD9: 780.52] María Elena Seamusdawn JUARES AlanJj KRISTYN PANDYA [facility] CPT-4: 67810 04/03/2012 ([id number]) OFFICE/OUTPATIENT VISIT EST Diagnosis: INSOMNIA NOS[ICD9: 780.52] Diagnosis: HYPERTENSION[ICD9: 401.9] Diagnosis: MIGRAINE NOS/NOT INTRCBL[ICD9: 346.90] María Elena MARIN AlanJj TD [facility] CPT-4: 83780 03/19/2012 ([id number]) OFFICE/OUTPATIENT VISIT EST Diagnosis: CELLULITIS[ICD9: 682.9] Diagnosis: Ankle pain[ICD9: 719.47] Diagnosis: HYPERTENSION[ICD9: 401.9] María Elena Seamusdawn JUARES AlanJj SE[facility]US MOJICARose Mary [facility] CPT-4: 29497 02/20/2012 ([id number]) OFFICE/OUTPATIENT VISIT EST Diagnosis: MIGRAINE NOS/NOT INTRCBL[ICD9: 346.90] Diagnosis: Vomiting[ICD9: 787.03] María Elenamarcella JUARES AlanJj [facility] Rose Mary [facility] CPT-4: 24205 01/30/2012 ([id number]) OFFICE/OUTPATIENT VISIT EST Diagnosis: EDEMA[ICD9: 782.3] Diagnosis: HYPERTENSION[ICD9: 401.9] Diagnosis: ALLERGIC RHINITIS[ICD9: 477.9] Diagnosis: ARTHRALGIA-MULTIPLE SITES[ICD9: 719.49] María Elena REED AlanJj SEAMUSMINDIVICTORINO [facility] CPT-4: 38882 01/24/2012 ([id number]) OFFICE/OUTPATIENT VISIT EST Diagnosis: SPASM OF MUSCLE[ICD9: 728.85] Diagnosis: Thoracic back pain[ICD9: 724.1] Diagnosis: Cervical pain[ICD9: 723.1] María Elena Hicks KRISTYN PANDYA [facility] CPT-4: 57411 01/10/2012 OFFICE/OUTPATIENT VISIT EST Diagnosis: PAIN, LOWER BACK[ICD9: 724.2] Diagnosis: LUMBAR DISC DISPLACEMENT[ICD9: 722.10] María Elena MARIN AlanJj [facility] CPT-4: 15434 12/11/2011 OFFICE/OUTPATIENT VISIT EST Diagnosis: MIGRAINE NOS/NOT INTRCBL[ICD9: 346.90] Diagnosis: SINUSITIS, ACUTE[ICD9: 461.9] María Elena MONTEROQUELINE AlanJj TD [facility] CPT-4: 42522 11/09/2011 OFFICE/OUTPATIENT VISIT EST Diagnosis: MIGRAINE NOS/NOT INTRCBL[ICD9: 346.90] Diagnosis: LYMPHADENOPATHY[ICD9: 785.6] María Elena ELLISLINE AlanJj TD [facility] CPT-4: 59297 09/13/2011 OFFICE/OUTPATIENT VISIT EST Diagnosis: MALAISE AND FATIGUE[ICD9: 780.79] Diagnosis: ARTHRALGIA-MULTIPLE SITES[ICD9: 719.49] María Elena Seamusdawn MONTERO APARNAGAEL AlanJj MARIVELVICTORINO [facility] CPT-4: 04760 08/31/2011 OFFICE/OUTPATIENT VISIT EST Diagnosis: SINUSITIS, ACUTE[ICD9: 461.9] María Elena Oredawn JUARES AlanJj [facility] CPT-4: 32311 07/20/2011 OFFICE/OUTPATIENT VISIT EST Diagnosis: HYPERTENSION[ICD9: 401.9] Diagnosis: PAIN, LOWER BACK[ICD9: 724.2] Diagnosis: SPASM OF MUSCLE[ICD9: 728.85] María Elena Appiah MARÍA ELENA AlanjJ TD [facility] CPT-4: 57706 07/06/2011 OFFICE/OUTPATIENT VISIT EST Diagnosis: MIGRAINE NOS/NOT INTRCBL[ICD9: 346.90] Diagnosis: HYPERTENSION[ICD9: 401.9] María Elena Seamusdawn Hicks SEAMUS DAWN [facility] CPT-4: 54401 05/22/2011 OFFICE/OUTPATIENT VISIT EST Diagnosis: SINUSITIS, ACUTE[ICD9: 461.9] Diagnosis: MIGRAINE NOS/NOT INTRCBL[ICD9: 346.90] Diagnosis: Dehydration[ICD9: 276.51] Diagnosis: Vomiting[ICD9: 787.03] María Elena Hicks [facility] CPT-4: 19846 05/09/2011 ([id number]) OFFICE/OUTPATIENT VISIT EST María Elena Orender [facility] CPT-4: 39052 02/14/2011 ([id number]) OFFICE/OUTPATIENT VISIT EST María Elena Ortaer [facility] CPT-4: 55703 02/03/2011 ([id number]) OFFICE/OUTPATIENT VISIT EST María Elenamarcella Ortaer [facility] CPT-4: 06097 01/31/2011 ([id number]) OFFICE/OUTPATIENT VISIT EST María Elenamarcella Ortaer [facility] CPT-4: 57622 01/25/2011 ([id number]) OFFICE/OUTPATIENT VISIT EST María Elenamarcella Ortaer [facility] CPT-4: 18636 01/18/2011 ([id number]) OFFICE/OUTPATIENT VISIT EST María Elena Ortaer [facility] CPT-4: 63269 11/29/2010 ([id number]) OFFICE/OUTPATIENT VISIT, EST María Elena Ortaer [facility] CPT-4: 38939 10/10/2010 ([id number]) OFFICE/OUTPATIENT VISIT, EST María Elenamarcella Ortaer [facility] CPT-4: 95608 06/07/2010 ([id number]) OFFICE/OUTPATIENT VISIT, EST María Elena Ortaer [facility] CPT-4: 94847 04/27/2010 ([id number]) OFFICE/OUTPATIENT VISIT, EST María Elena MONTERO [facility] CPT-4: 65149 04/05/2010 ([id number]) OFFICE/OUTPATIENT VISIT, EST María Elenamarcella Ortaer [facility] CPT-4: 42942 03/09/2010 ([id number]) OFFICE/OUTPATIENT VISIT, EST María Elenamarcella Ortaer [facility] CPT-4: 64669 03/03/2010 ([id number]) OFFICE/OUTPATIENT VISIT, EST María Elena Ortaer [facility] CPT-4: 77967 01/17/2010 ([id number]) PREV VISIT, EST, AGE 40-64 María Elena MONTEROMICHAEL ValdesJj APPIAH DO [facility] CPT-4: 09443 12/27/2009 Plan of Care Planned Activity Notes Codes Status Date Appointment: María Elena Appiahtel: [facility]8 [facility] [place] Won't have the new insurance till [...] W06.XXXS 05/28/2019 Appointment: María Elena Appiah WPtel: [address] [place], [place] [phone] [place] FOLLOW UP 05/28/2019 Appointment: María Elena Appiah WPtel: [address] [place], [place] [phone] [place] BP CHECK 05/19/2019 Visit Diagnosis Plan: [...] Z79.890 01/22/2019 Appointment: María Elena Appiah WPtel: [address] [place], [place] [phone] [place] FOLLOW UP 01/22/2019 Patient Education: estradiol- [employer] Coupon [id number] https://www.[employer]samplemd/resources/getResource/61/[email or web address] Completed 01/22/2019 Appointment: María Elena Appiah WPtel: [address] [place], [place] [phone] [place] CANCELED 01/20/2019 Appointment: María Elena Appiah WPtel: [address] [place], [place] [phone] [place] LM NO SHOW 01/06/2019 Appointment: María Elena Appiah WPtel: [address] [place], [place] [phone] [place] CANCELED 10/17/2018 Appointment: María Elena Appiah WPtel: [address] [place], [place] [address] [place] BP CHECK 10/09/2018 Visit Diagnosis Plan: [...] I10 09/30/2018 Appointment: María Elena Appiah WPtel: [address] [place], [place] [phone] [place] FOLLOW UP 09/30/2018 Visit Diagnosis Plan: [...] F51.01 08/27/2018 Appointment: María Elena Appiah WPtel: [address] [place] [address] ACUTE ILLNESS 08/27/2018 Appointment: María Elena Appiah WPtel: [address] [place] [address] [place] Patient stated she went out to [...] Tyle... 08/09/2018 Appointment: María Elena Appiah WPtel: [address] [place] [address] ACUTE ILLNESS 08/09/2018 Appointment: María Elena Appiah WPtel: [address] [place] [address] NO SHOW 08/08/2018 Visit Diagnosis Plan: Anxiety [...] 07/22/2018 Appointment: María Elena Appiah WPtel: [phone] [facility] ACUTE ILLNESS 07/22/2018 Appointment: María Elena Appiah WPtel: [phone] [facility] [place] INJECTION 06/19/2018 Patient Education: Patient Medication [...] : L03.031 06/17/2018 Appointment: Kathleen Zuniga [address] [place] [address] ACUTE ILLNESS 06/17/2018 Patient Education: Patient Medication [...] : B02.9 05/16/2018 Appointment: Kathleen Zuniga [address] [place] [address] ACUTE ILLNESS 05/16/2018 Patient Education: Patient Medication [...] : L03.115 03/20/2018 Appointment: Kathleen Zuniga [address] [phone] FOLLOW UP 03/20/2018 Patient Education: Patient Medication [...] ICD-10 : L03.115 03/18/2018 Appointment: Kathleen Zuniga [address] [place], [place] [address] FOLLOW UP 03/18/2018 Patient Education: Patient Medication [...] : L03.115 03/15/2018 Appointment: Kathleen Zuniga [address] [phone] ACUTE ILLNESS 03/15/2018 Patient Education: Patient Medication [...] : J01.90 02/11/2018 Appointment: Kathleen Zuniga [address] [place] [address] ACUTE ILLNESS 02/11/2018 Patient Education: Patient Medication Summary Completed 02/11/2018 Appointment: María Elena Appiah WPtel: [phone] [place] [address] [place] INJECTION 02/01/2018 Patient Education: Patient Medication [...] M51.16 01/30/2018 Appointment: Kathleen Zuniga Rose MaryJj [address] [place] [address] ACUTE ILLNESS 01/30/2018 Patient Education: Patient Medication [...] E11.65 12/18/2017 Appointment: María Elena Appiah WPtel: [facility]6 [facility] Annual Well Visit 12/18/2017 Patient Education: Patient Medication Summary Completed 12/18/2017 Care Plan: Referral Order SNOMED-CT : [id number] Pending 12/18/2017 Appointment: María Elena Appiah WPtel: [facility] [place] INJECTION 12/10/2017 [...] : L03.031 12/07/2017 Appointment: Kathleen Zuniga [address] [place], [place] [phone] ACUTE ILLNESS 12/07/2017 Patient Education: Patient Medication [...] : J01.00 10/08/2017 Appointment: Kathleen Zuniga 504 [facility] ACUTE ILLNESS 10/08/2017 Patient Education: Patient Medication Summary Completed 10/08/2017 Appointment: María Elena Appiah WPtel: [phone] [place] [place] INJECTION 09/21/2017 Patient Education: Patient Medication [...] : R06.83 09/20/2017 Appointment: Kathleen Zuniga [address] [facility] ACUTE ILLNESS 09/20/2017 Patient Education: Patient [...] ICD-10 : L60.0 08/29/2017 Appointment: Kathleen Zuniga [address] [place] [address] OFFICE SURGERY 08/29/2017 Patient Education: Patient Medication Summary Completed 08/29/2017 Visit Diagnosis Plan: Actinic keratosis Discussion: Cr yotherapy as above ICD-9 : 702.0 ICD-10 : L57.0 08/01/2017 Appointment: María Elena Appiah WPtel: [address] [place] [address] OFFICE SURGERY 08/01/2017 Patient Education: Patient Medication Summary Completed 08/01/2017 Appointment: María Elena Appiah WPtel: [address] [place] [address] PATIENT THOUGHT APPOINTMENT WAS TOMORROW 07/26/17 CALLED 15 MINUTES BEFORE APPT TO SAY SHE DIDN'T HAVE ANYONE TO COVER HER BUSINESS AND WOULD NOT MAKE IT NO SHOW 07/25/2017 Visit Diagnosis Plan: Cellulitis of left toe Discussio n: Clindamycin and notify if worsening or persistis ICD-9 : 681.10 ICD-10 : L03.032 07/19/2017 Appointment: María Elena Appiah WPtel: [address] [place] [address] MEDICATION REVIEW 07/19/2017 Patient Education: Patient Medication Summary Completed 07/19/2017 Appointment: María Elena Appiah WPtel: [address] [place] [address] CANCELED 07/04/2017 Visit Diagnosis Plan: Generalized hyperhidrosis Discus ian: CBC, CMP, TSH, free T4 ordered to assess. will review labs. ICD-9 : 780.8 ICD-10 : R61 06/27/2017 Visit Diagnosis Plan: Chronic sinusitis, unspecified D iscussion: Referral sent to dr. albarado in [place] per patient request. patient has been treated multiple times for sinus infections with no recovery. patient was seen by dr sanchez in the past with no interventions. patient has deviated septum which may be affecting her sinuses. 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, including hip Discussion: Shave removal of above lesio n--sent to pathology ICD-9 : 216.7 ICD-10 : D23.72 01/24/2017 Appointment: María Elena [facility] [phone] [facility] 01/23 confirmed ~ OFFICE SURGERY 01/24/2017 Patient Education: Patient Medication Summary Completed 01/24/2017 Appointment: Loan Sánchez [address] [place], [place] [address] 01/09 rescheduled~sl RESCHEDULED 01/15/2017 Visit Diagnosis Plan: [...] 12/13/2016 Appointment: María Elena Appiah WPtel: [address] [place] [address] 12/12 confirmed ~ MEDICATION REVIEW 12/13/2016 Patient Education: Patient Medication Summary Completed 12/13/2016 Appointment: María Elena Appiah WPtel: [address] [place], [place] [phone] [place] rescheduled for 12/13/16 at 11am RESCHEDULED 0 12/06/2016 Appointment: María Elena Appiah WPtel: [address] [place], [place] [phone] [place] CANCELED 11/23/2016 Patient Education: Patient Medication [...] F51.01 11/01/2016 Appointment: María Elena Appiah WPtel: [address] [place], [place] [phone] [place] 10/31 lm `sl 11/01 lm`sl MEDICATION REVIEW 017 Patient Education: Patient Medication Summary Completed 11/01/2016 Referral: Canelo Overton WPtel: [phone] [id number] [place] Referral Initiated 10/30/2016 Visit Diagnosis Plan: [...] Z01.419 10/17/2016 Appointment: María Elena Appiah WPtel: [address] [place], [place] [phone] 10/16 confirmed ~sl PAP 10/17/2016 Patient Education: Patient Medication Summary Completed 10/17/2016 Care Plan: MAMMOGRAM SCREENING LOINC : 2 6347-5 Pending 10/17/2016 Visit Diagnosis Plan: Other seasonal allergic rhinitis Discussion: Decadron/Garamycin Nasal [place] Mix Too soon for steroid Retry zyrtec 10mg daily ICD-9 : 477.9 ICD-10 : J30.2 10/10/2016 Appointment: María Elena Appiah WPtel: [address] [place], [place] [phone] [place] FOLLOW UP 10/10/2016 Patient Education: Patient Medication Summary Completed 10/10/2016 Appointment: María Elena Appiah WPtel: [address] [place], [place] [address] [place] 10/02 reschedule `sl RESCHEDULED 10/02/2016 Visit Plan: See surgery for removal of n ew left arm lesion and right foot lesion Lyrica to use next month for left arm paresthesias Continue current meds Discussed sunscreen/sunblock combo 09/19/2016 Appointment: María Elena Appiah WPtel: [address] [place], [place] [phone] 09/18 confirmed ~sl FOLLOW UP 09/19/2016 Patient Education: Patient Medication Summary Completed 09/19/2016 Patient Education: Patient Medication Summary Completed 09/18/2016 Care Plan: MAMMOGRAM BOTH BREASTS LOINC : 68510-1 Pending 09/18/2016 Visit Plan: Discussed that needs [...] 08/24/2016 Appointment: María Elena Appiah WPtel: [address] [place] [address] ACUTE ILLNESS 08/24/2016 Patient Education: Patient Medication Summary Completed 08/24/2016 Patient Education: Patient Medication Summary Completed 08/23/2016 Care Plan: MAMMOGRAM SCREENING LOINC : 2 6347-5 Pending 08/23/2016 Visit Plan: Finish doxycycline Add Breo 100/25 1 p BID for 2 weeks If not improving within next 2 days will get CXR 08/16/2016 Appointment: María Elena Appiah WPtel: [address] [place], [place] [phone] ACUTE ILLNESS 08/16/2016 Patient Education: Patient Medication Summary Completed 08/16/2016 Visit Plan: Supportive care. Rest, Fluid s, Tylenol/Motrin prn fever or bodyaches. Notify if worsening symptoms. Doxycyline and Prednisone 08/10/2016 Appointment: María Elena Appiah WPtel: [address] [place], [place] [phone] 08/09 lm`sl....confirmed-sp FOLLOW UP 09/2015 Patient Education: Patient Medication Summary Completed 08/10/2016 Visit Plan: Saline nasal flushes prn. Ty lenol/Motrin prn headache. Notify if persists/symptoms worsening. Dexamethasone 8mg IM today May use coricedan and mucinex 08/02/2016 Appointment: María Elena Appiah WPtel: [address] [place] [address] ACUTE ILLNESS 08/02/2016 Patient Education: Patient Medication Summary Completed 08/02/2016 Visit Plan: Cryotherapy as above and lef t forearm lesion removal as above with 5-0 punch biopsy and sent to path Return in 10 days for suture removal 08/01/2016 Appointment: María Elena Appiah WPtel: [address] [place], [place] [address] 07/31 confirmed`~ OFFICE SURGERY 08/01/2016 Patient Education: Patient Medication Summary Completed 08/01/2016 Visit Plan: Stop clindamycin Check CBC, CMP, ESR now/STAT 07/27/2016 Appointment: María Elena Appiah WPtel: [address] [place] [address] ACUTE ILLNESS 07/27/2016 Patient Education: Patient Medication Summary Completed 07/27/2016 Visit Plan: Update lab and check ABIs to start with Will likely need cardiology evaluation to rule out PVD Clindamycin for 10 days Daily yogurt or probiotic Will return for removal of left arm lesions 07/20/2016 Appointment: María Elena Appiah WPtel: [address] [place], [place] [address] ACUTE ILLNESS 07/20/2016 Patient Education: Patient Medication Summary Completed 07/20/2016 Patient Education: Patient Medication Summary Completed 07/20/2016 Care Plan: MAMMOGRAM BOTH BREASTS LOINC : 61742-3 Pending 07/20/2016 Care Plan: US EXAM CHEST LOINC : 55639-3 Pending 07/20/2016 Visit Plan: Wound culture collected from left great toe Appearance is somewhat staph like Rx as above Wound cleanser and skin care reviewed May need to add oral antibiotic if sores do not heal or continue to reoccur 07/06/2016 Appointment: Loan Sánchez [address] [place] [address] ACUTE ILLNESS 07/06/2016 Patient Education: Patient Medication Summary Completed 07/06/2016 Appointment: María Elena Appiah WPtel: [address] [place] [address] [place] INJECTION 05/25/2016 Patient Education: Patient Medication Summary Completed 05/25/2016 Visit Plan: Saline nasal flushes prn. Ty lenol/Motrin prn headache. Notify if persists/symptoms worsening. Dexamethasone and Rocephin given 04/26/2016 Appointment: María Elena Appiah WPtel: [address] [place] [address] ACUTE ILLNESS 04/26/2016 Patient Education: Patient Medication Summary Completed 04/26/2016 Visit Plan: Check CBC, CMP, TSH, FreeT4, HbA1C, estradiol, lipids in AM 03/02/2016 Appointment: María Elena Appiah WPtel: [address] [place] [address] 03/01 lm~sl ACUTE ILLNESS 03/02/2016 Patient Education: Patient Medication Summary Completed 03/02/2016 Visit Plan: Exam is nearly normal Needs to be taking daily antihistamine Would prefer to use oral steroids instead of shot but patient insist that oral steroids cause horrible headaches for her Will given kenalog IM instead 02/09/2016 Appointment: Loan Sánchez [address] [place] [address] ACUTE ILLNESS 02/09/2016 Patient Education: Patient Medication Summary Completed 02/09/2016 Visit Plan: Culture urine Macrobid DC xa nax Trial of Ativan 1mg q HS 01/24/2016 Appointment: María Elena Appiah WPtel: [address] [place] [address] ACUTE ILLNESS 01/24/2016 Patient Education: Patient Medication Summary Completed 01/24/2016 Visit Plan: No steroid or rocephin injec tion warranted Can have oral prednisone Continue current home regimen Needs to follow up with Dr Sanchez if problems persist 12/23/2015 Appointment: Loan Sánchez [address] [place], [place] [phone] ACUTE ILLNESS 12/23/2015 Patient Education: Patient Medication Summary Completed 12/23/2015 Visit Plan: Saline nasal flushes prn. Ty lenol/Motrin prn headache. Notify if persists/symptoms worsening. Kenalog 40mg IM today 12/08/2015 Appointment: María Elena Appiah WPtel: [address] [place] [address] 12/06 confirmed~ ACUTE ILLNESS 12/08/2015 Patient Education: Patient Medication Summary Completed 12/08/2015 Appointment: María Elena Appiah WPtel: [address] [place] [address] ACUTE ILLNESS 11/18/2015 Patient Education: Patient Medication Summary Completed 10/11/2015 Appointment: María Elena Appiah WPtel: [address] [place] [address] [place] INJECTION 10/07/2015 Patient Education: Patient Medication Summary Completed 10/07/2015 Visit Plan: Check renal arterial doppler s and ECHO Change amlodopine to lotrel 5/20mg q HS Will need stress test as well Check CMP, uric acid, ESR 10/06/2015 Appointment: María Elena Appiah WPtel: [address] [place] [address] ACUTE ILLNESS 10/06/2015 Patient Education: Patient Medication Summary Completed 10/06/2015 Patient Education: [facility] - [employer] - Amlodipine Besylate - 18-64 - Dynamic Portal ID Completed 10/06/2015 Appointment: María Elena Appiah WPtel: [address] [place] [address] FOLLOW UP 09/22/2015 Visit Plan: Cephalexin 500 mg PO bid Mery ly topical Mupirocin to lesions on left lateral neck and face Follow-up in one week. Sooner if symptoms worsen 09/14/2015 Appointment: June Flores WPtel: [address] [place] [address] ACUTE ILLNESS 09/14/2015 Patient Education: Patient Medication Summary Completed 09/14/2015 Visit Plan: Change bystolic to bedtime d osing and amlodopine to morning dosing Cryotherapy as above to AKs 09/07/2015 Appointment: María Elena Appiah WPtel: [address] [place] [address] 09/06 appointment made and confirmed ~sl FOLLOW UP 09/07/2015 Patient Education: Patient Medication Summary Completed 09/07/2015 Visit Plan: Increase bystolic back to 20 mg daily but will split and take 10mg in AM and 10mg in PM Stress Reducers 08/18/2015 Appointment: María Elena Appiah WPtel: [address] [place] [address] 08/17/15 appt confirmed cn ACUTE ILLNESS 08/18 Patient Education: Patient Medication Summary Completed 08/18/2015 Appointment: María Elena Appiah WPtel: [address] [place] [address] BP CHECK 07/07/2015 Patient Education: Patient Medication Summary Completed 07/07/2015 Appointment: María Elena Appiah WPtel: [address] [place] [address] BP CHECK 06/24/2015 Patient Education: Patient Medication Summary Completed 06/24/2015 Appointment: María Elena Appiah WPtel: [address] [place] [address] BP CHECK 06/21/2015 Patient Education: Patient Medication Summary Completed 06/21/2015 Visit Plan: Lab discussed Continue curre nt meds and lifestyle modification Recheck lab in 6mos 06/16/2015 Appointment: María Elena Appiah WPtel: [address] [place] [address] 06/15 confirmed FOLLOW UP 06/16/2015 Patient Education: Patient Medication Summary Completed 06/16/2015 Patient Education: Patient Medication Summary Completed 06/15/2015 Visit Plan: Increase cymbalta to 60mg q HS Keep clonidine at current dose Recheck 2weeks Change xanax to klonopin 06/02/2015 Appointment: María Elena Appiah WPtel: [address] [place] [address] 06/02 FOLLOW UP 06/02/2015 Patient Education: Patient Medication Summary Completed 06/02/2015 Appointment: María Elena Appiah WPtel: [address] [place] [address] ACUTE ILLNESS 05/24/2015 Visit Plan: Increase clonidine to 0.2mg q HS Add cymbalta 30mg q HS Recheck 2weeks Stress Reducers Check fasting lab Discussed sleep study 05/20/2015 Appointment: María Elena Appiah WPtel: [address] [place] [address] ACUTE ILLNESS 05/20/2015 Patient Education: Patient Medication Summary Completed 05/20/2015 Patient Education: [facility] [place] - Saving [employer] - Cymbalta - 18-64 - Dynamic Portal ID Completed 05/20/2015 Appointment: María Elena Appiah WPtel: [address] [place] [address] BP CHECK 05/19/2015 Patient Education: Patient Medication Summary Completed 05/19/2015 Visit Plan: Topical Bactroban alternatin g with topical betamethasone Recheck 2weeks 05/10/2015 Appointment: María Elena Appiah WPtel: [address] [place] [address] 05/07 vm cn...05/07 appt confirmed OFFICE SURGER Y 05/10/2015 Patient Education: Patient Medication Summary Completed 05/10/2015 Referral: Patrick Chandler WPtel: [place] [address] Referral Initiated 05/04/2015 Visit Plan: Saline nasal flushes prn. Ty lenol/Motrin prn headache. Notify if persists/symptoms worsening. Depomedrol 40mg IM today 03/16/2015 Appointment: María Elena Appiah WPtel: [address] [place] [address] ACUTE ILLNESS 03/16/2015 Patient Education: Patient Medication Summary Completed 03/16/2015 Appointment: María Elena Appiah WPtel: [address] [place] [address] ER Follow UP 03/09/2015 Visit Plan: Cryotherapy to lesions as ab ove 10/27/2014 Appointment: María Elena Appiah WPtel: [address] [place] [address] OFFICE SURGERY 10/27/2014 Patient Education: Patient Medication Summary Completed 10/27/2014 Appointment: June Flores WPtel: [address] [place] [address] ACUTE ILLNESS 09/11/2014 Patient Education: Patient Medication Summary Completed 09/11/2014 Visit Plan: Lab discussed Lipitor 10mg d aily Coenzyme Q-10 400mg daily Vitamin D3 5000u daily Recheck lipids with LFTs in 3mos then fwup 08/31/2014 Appointment: María Elena Appiah WPtel: [address] [place] [address] 08/28 voicemail FOLLOW UP 08/31/2014 Patient Education: Patient Medication Summary Completed 08/31/2014 Appointment: María Elena Appiah WPtel: [address] [place] [address] US LAB 08/27/2014 Appointment: María Elena Appiah WPtel: [address] [place] [address] US LAB 08/27/2014 Patient Education: Patient Medication Summary Completed 08/27/2014 Appointment: María Elena Appiah WPtel: [address] [place] [address] ACUTE ILLNESS 07/23/2014 Appointment: María Elena Appiah WPtel: [address] [place], [place] [id number] ACUTE ILLNESS 07/21/2014 Patient Education: Patient Medication Summary Completed 07/21/2014 Visit Plan: Kenalog 40mg IM today Contin ue narendra and jazir Add Flonase 07/15/2014 Appointment: María Elena Appiah WPtel: [address] [place], [place] [id number] ACUTE ILLNESS 07/15/2014 Appointment: María Elena Appiah WPtel: [address] [place], [place] [id number] ACUTE ILLNESS 07/15/2014 Patient Education: Patient Medication Summary Completed 07/15/2014 Visit Plan: Will do metolazone 2.5mg prn with 6 potassium and see if causes as severe cramping Trial of of seroquel XR 50mg q PM with evening meal and let us know how works 05/18/2014 Appointment: María Elena Appiah WPtel: [address] [place], [place] [id number] 05/15 left message FOLLOW UP 05/18/2014 Patient Education: Patient Medication Summary Completed 05/18/2014 Appointment: María Elena Appiah WPtel: [address] [place], [place] [id number] LAB 05/14/2014 Patient Education: Patient Medication Summary Completed 05/14/2014 Appointment: María Elena Appiah WPtel: [address] [place], [place] [id number] [place] INJECTION 04/22/2014 Visit Plan: Rocephin and Kenalog today a nd finish abx given from urgent care 04/21/2014 Appointment: María Elena Appiah WPtel: [address] [place] [address] [place] INJECTION 04/21/2014 Patient Education: Patient Medication Summary Completed 04/21/2014 Appointment: June Flores WPtel: [address] [place] [address] ACUTE ILLNESS 03/04/2014 Patient Education: Patient Medication Summary Completed 03/04/2014 Appointment: María Elena Appiah WPtel: [address] [place] [address] INJECTION 02/27/2014 Patient Education: Patient Medication Summary Completed 02/27/2014 Visit Plan: Cryotherapy as above to all lesions Patient wants to try no meds for insomnia for a while and see how goes 01/13/2014 Appointment: María Elena Appiah WPtel: [address] [place] [address] OFFICE SURGERY 01/13/2014 Patient Education: Patient Medication Summary Completed 01/13/2014 Visit Plan: Stop Melatonin Stop Soma Tri al of trazadone 75mg q HS See ENT for possible tubes as has had chronic ETD and serous otitis media with numerous steroids 12/24/2013 Appointment: María Elena Appiah WPtel: [address] [place] [address] ACUTE ILLNESS 12/24/2013 Patient Education: Patient Medication Summary Completed 12/24/2013 Visit Plan: Saline nasal flushes prn. Ty lenol/Motrin prn headache. Notify if persists/symptoms worsening. 11/12/2013 Appointment: María Elena Appiah WPtel: [address] [place] [address] ACUTE ILLNESS 11/12/2013 Patient Education: Patient Medication Summary Completed 11/12/2013 Appointment: María Elena Appiah WPtel: [address] [place] [address] ACUTE ILLNESS 10/21/2013 Patient Education: Patient Medication Summary Completed 10/21/2013 Visit Plan: Sleep hygiene and sleep rout ine Melatonin 10mg q HS Support stockings and observe 09/22/2013 Appointment: María Elena Appiah WPtel: [address] [place] [address] ACUTE ILLNESS 09/22/2013 Patient Education: Patient Medication Summary Completed 09/22/2013 Appointment: June Flores WPtel: [address] [place] [address] ACUTE ILLNESS 08/27/2013 Patient Education: Patient Medication Summary Completed 08/27/2013 Visit Plan: Proceed with CT scan of head /neck Proceed with occipital nerve injections Butrans 20mcg patch weekly until can get into see Dr. Mcdonough for injections 08/04/2013 Appointment: María Elena Appiah WPtel: [address] [place] [address] FOLLOW UP 08/04/2013 Patient Education: Patient Medication Summary Completed 08/04/2013 Visit Plan: OMT done Daily neck stretche s, moist heat Increase Celebrex to 200mg BID Add flexeril 07/23/2013 Appointment: María Elena Appiah WPtel: [address] [place] [address] 07/22 voicemail FOLLOW UP 07/23/2013 Patient Education: Patient Medication Summary Completed 07/23/2013 Appointment: María Elena Appiah WPtel: [address] [place] [address] ACUTE ILLNESS 06/23/2013 Patient Education: Patient Medication Summary Completed 06/23/2013 Appointment: María Elena Appiah WPtel: [address] [place] [address] ACUTE ILLNESS 05/26/2013 Patient Education: Patient Medication Summary Completed 05/26/2013 Visit Plan: Decrease clonidine to 0.1mg TID If BP remains stable consider decreasing amlodopine Prednisone for 5 days BP check in 1mo 04/16/2013 Appointment: María Elena Appiah WPtel: [address] [place] [address] 04/14 pt called and confirmed appt FOLLOW UP 04/16/2013 Patient Education: Patient Medication Summary Completed 04/16/2013 Appointment: María Elena Appiah WPtel: [address] [place] [address] ACUTE ILLNESS 03/05/2013 Patient Education: Patient Medication Summary Completed 03/05/2013 Visit Plan: Pt has MARIA ELENA on with Dr. Mcdonough Continue Butrans patch Refill Hydrocodone early tomorrow 12/23/2012 Appointment: María Elena Appiah WPtel: [address] [place] [address] FOLLOW UP 12/23/2012 Patient Education: Patient Medication Summary Completed 12/23/2012 Appointment: Lashawn Eckert WPtel: [address] [place] [address] ACUTE ILLNESS 12/16/2012 Patient Education: Patient Medication Summary Completed 12/16/2012 Visit Plan: Proceed with updated MRI of LS spine Continue gabapentin and add soma and diclofenac Will likely need to go for another epidural 12/09/2012 Appointment: María Elena Appiah WPtel: [address] [place] [address] ACUTE ILLNESS 12/09/2012 Patient Education: Patient Medication Summary Completed 12/09/2012 Visit Plan: Injection as above Finish me drol dose pack Chiropracter this afternoon 12/04/2012 Appointment: María Elena Appiah WPtel: [address] [place] [address] ACUTE ILLNESS 12/04/2012 Patient Education: Patient Medication Summary Completed 12/04/2012 Appointment: Mary Tillman WPtel: [address] [place] [address] FOLLOW UP 11/22/2012 Patient Education: Patient Medication Summary Completed 11/22/2012 Appointment: María Elena Appiah WPtel: [address] [place] [address] ACUTE ILLNESS 11/21/2012 Patient Education: Patient Medication Summary Completed 11/21/2012 Appointment: María Elena Appiah WPtel: [address] [place] [address] BP CHECK 11/07/2012 Patient Education: Patient Medication Summary Completed 11/07/2012 Visit Plan: reports extra clonidine and extra amlodipine and extra alprazalam. extra Ketolorac and promethazine last night. Bystolic 10 mg QAM and will continue all other blood pressure meds. Pt. encouraged to rest and hydrate. Discussed stroke and [place] symptoms. Pt. instructed to seek ER eval if symptoms worsen or headache persists. Pt. agrees to ER eval/EMS transport if symptoms worsen. BP re-check. 10/29/2012 Appointment: Lashawn Eckert WPtel: [address] [place] [address] ACUTE ILLNESS 10/29/2012 Patient Education: Patient Medication Summary Completed 10/29/2012 Appointment: María Elena Appiah WPtel: [address] [place] [address] ACUTE ILLNESS 10/14/2012 Patient Education: Patient Medication Summary Completed 10/14/2012 Appointment: María Elean Appiah WPtel: [address] [place] [address] 09/27/2012 Patient Education: Patient Medication Summary Completed 09/27/2012 Appointment: María Elena Appiah WPtel: [address] [place] [address] ACUTE ILLNESS 09/25/2012 Patient Education: Patient Medication Summary Completed 09/25/2012 Appointment: María Elena Appiah WPtel: [address] [place] [address] BP CHECK 09/24/2012 Appointment: María Elena Appiah WPtel: [address] [place] [address] ACUTE ILLNESS 08/29/2012 Patient Education: Patient Medication Summary Completed 08/29/2012 Visit Plan: Cryotherapy as above See Karlos m for right ear lesion--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 ACUTE ILLNESS 05/06/2012 Patient Education: Patient Medication Summary Completed 05/06/2012 Visit Plan: Pt wants to hold on any furt her sleep medications 04/03/2012 Appointment: María Elena Appiah WPtel: [address] [place] [address] FOLLOW UP 04/03/2012 Patient Education: Patient Medication Summary Completed 04/03/2012 Appointment: María Elena Appiah WPtel: [address] [place] [address] FOLLOW UP 03/19/2012 Patient Education: Patient Medication Summary Completed 03/19/2012 Appointment: María Elena Appiah WPtel: [address] [place] [address] BP CHECK 02/22/2012 Patient Education: Patient Medication Summary Completed 02/22/2012 Appointment: María Elena Appiah WPtel: [address] [place] [address] BP CHECK 02/21/2012 Patient Education: Patient Medication Summary Completed 02/21/2012 Visit Plan: Doxycycline and bactroban fo r foot Supportive care on ankles and knees Add norvasc for BP 02/20/2012 Appointment: María Elena Appiah WPtel: [address] [place] [address] ER Follow UP 02/20/2012 Patient Education: Patient Medication Summary Completed 02/20/2012 Appointment: María Elena Appiah WPtel: [address] [place] [address] ACUTE ILLNESS 01/30/2012 Patient Education: Patient Medication Summary Completed 01/30/2012 Appointment: María Elena Appiahtel: [address] [place] [address] ACUTE ILLNESS 01/24/2012 Patient Education: Patient Medication Summary Completed 01/24/2012 Visit Plan: Daily back stretches, moist heat, Biofreeze prn OMT done 01/10/2012 Appointment: María Elena Appiah WPtel: [address] [place] [address] ACUTE ILLNESS 01/10/2012 Patient Education: Patient Medication Summary Completed 01/10/2012 Appointment: María Elena Appiah WPtel: [address] [place] [address] FOLLOW UP 12/11/2011 Patient Education: Patient Medication Summary Completed 12/11/2011 Appointment: María Elena Appiahtel: [address] [place] [address] ACUTE ILLNESS 11/09/2011 Patient Education: Patient Medication Summary Completed 11/09/2011 Appointment: María Elena Appiahtel: [address] [place] [address] ACUTE ILLNESS 09/13/2011 Patient Education: Patient Medication Summary Completed 09/13/2011 Visit Plan: Check CBC, TSH, Free T4, CMP , ESR, Vit D, B12 now Start Prednisone today 08/31/2011 Appointment: María Elena Appiahtel: [address] [place] [address] ACUTE ILLNESS 08/31/2011 Patient Education: Patient Medication Summary Completed 08/31/2011 Appointment: María Elena Appiah WPtel: [address] [place] [address] [place] INJECTION 07/20/2011 Patient Education: Patient Medication Summary Completed 07/20/2011 Visit Plan: Continue current meds Monite r BP Cont stretches from PT 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 07/06/2011 Appointment: María Elena Appiah WPtel: [address] [place], [place] [id number] [place] FOLLOW UP 07/06/2011 Patient Education: Patient Medication Summary Completed 07/06/2011 Appointment: María Elena Appiah WPtel: [address] [place], [place] [id number] BP CHECK 06/06/2011 Patient Education: Patient Medication Summary Completed 06/06/2011 Visit Plan: Add Bystolic at 2.5mg QAM Ad d Robaxin 750mg 2 po q HS BP check in 2wks 05/22/2011 Appointment: María Elena Appiah WPtel: [address] [place], [place] [id number] FOLLOW UP 05/22/2011 Patient Education: Patient Medication Summary Completed 05/22/2011 Appointment: María Elena Appiah WPtel: [address] [place], [place] [id number] ER Follow UP 05/09/2011 Patient Education: Patient Medication Summary Completed 05/09/2011 Appointment: María Elena Appiah WPtel: [address] [place], [place] [id number] [place] FOLLOW UP 02/22/2011 Visit Plan: Rx written for Hydrocodone 1 0/325mg #240 See Ortho 02/14/2011 Appointment: María Elena Appiah WPtel: [address] [place], [place] [phone] OMT 02/14/2011 Patient Education: Patient Medication Summary [...] work. 02/03/2011 Appointment: Lashawn Eckert WPtel: [address] [place] [address] ACUTE ILLNESS 02/03/2011 Patient Education: Patient Medication Summary Completed 02/03/2011 Visit Plan: OMT done Cont daily stretche s 01/31/2011 Appointment: María Elena Appiah WPtel: [address] [place] [address] ACUTE ILLNESS 01/31/2011 Patient Education: Patient Medication Summary Completed 01/31/2011 Visit Plan: Continue pain meds OMT done Proceed with PT No work this summer01/25/2011 Appointment: María Elena Appiah WPtel: [address] [place] [address] ACUTE ILLNESS 01/25/2011 Patient Education: Patient Medication Summary Completed 01/25/2011 Visit Plan: Start PT Long discussion abo ut getting pain meds from only and can only have max of 4grams of tylenol per day Change to Hydrocodone 10/325mg 1- 2 po TID prn pain--#180 called to Radha 01/18/2011 Appointment: María Elena Appiah WPtel: [address] [place] [address] FOLLOW UP 01/18/2011 Patient Education: Patient Medication Summary Completed 01/18/2011 Visit Plan: Daily back stretches, moist heat, Biofreeze prn 11/29/2010 Appointment: María Elena Appiah WPtel: [address] [place] [address] ER Follow UP 11/29/2010 Patient Education: Patient Medication Summary Completed 11/29/2010 Visit Plan: Saline nasal flushes prn. Ty lenol/Motrin prn headache. Notify if persists/symptoms worsening. Finish augmentin Add Medrol Dose Pack 10/10/2010 Appointment: María Elena Appiah WPtel: [address] [place], [place] [id number] ACUTE ILLNESS 10/10/2010 Patient Education: Patient Medication Summary Completed 10/10/2010 Visit Plan: Cryotherapy x3 to multiple l esions on both forearms 07/19/2010 Appointment: María Elena Appiah WPtel: [address] [place], [place] [id number] OFFICE SURGERY 07/19/2010 Patient Education: Patient Medication Summary Completed 07/19/2010 Appointment: María Elena Appiah WPtel: [address] [place], [place] [phone] [place] BP CHECK 07/06/2010 Patient Education: Patient Medication Summary Completed 07/06/2010 Appointment: aMría Elena Appiahtel: [address] [place], [place] [phone] [place] BP CHECK 06/30/2010 Patient Education: Patient Medication Summary Completed 06/30/2010 Appointment: María Elena Appiah WPtel: [address] [place], [place] [phone] [place] BP CHECK 06/20/2010 Patient Education: Patient Medication Summary Completed 06/20/2010 Visit Plan: Change Diovan to Exforge 160 /5mg QD OMT done to thoracics BP check in 2wks 06/07/2010 Appointment: María Elena Appiah WPtel: [address] [place], [place] [phone] FOLLOW UP 06/07/2010 Patient Education: Patient Medication Summary Completed 06/07/2010 Appointment: María Elena Appiah WPtel: [address] [place], [place] [phone] [place] BP CHECK 06/03/2010 Patient Education: Patient Medication Summary Completed 06/03/2010 Appointment: María Elena Appiah WPtel: [address] [place], [place] [phone] [place] BP CHECK 06/01/2010 Patient Education: Patient Medication Summary Completed 06/01/2010 Visit Plan: Irritated skin tags to left neck x2 excised at base with scissors and base cauterized 05/30/2010 Appointment: María Elena Appiah WPtel: [address] [place] [address] OFFICE SURGERY 05/30/2010 Patient Education: Patient Medication Summary Completed 05/30/2010 Visit Plan: Saline nasal flushes prn. Ty lenol/Motrin prn headache. Notify if persists/symptoms worsening. Restart Nasonex Has allergy testing set for May 25 04/27/2010 Appointment: María Elena Appiah WPtel: [address] [place] [address] ACUTE ILLNESS 04/27/2010 Patient Education: Patient Medication Summary Completed 04/27/2010 Visit Plan: Saline nasal flushes prn. Ty lenol/Motrin prn headache. Notify if persists/symptoms worsening. Omnaris BID plus injections 04/05/2010 Appointment: María Elena Appiah WPtel: [address] [place] [address] ACUTE ILLNESS 04/05/2010 Patient Education: Patient Medication Summary Completed 04/05/2010 Visit Plan: Saline nasal flushes prn. Ty lenol/Motrin prn headache. Notify if persists/symptoms worsening. 03/09/2010 Appointment: María Elena Appiah WPtel: [address] [place] [address] ACUTE ILLNESS 03/09/2010 Patient Education: Patient Medication Summary Completed 03/09/2010 Visit Plan: Cont Clonidine as is Cont Pr emarin Fwup with surgery as scheduled 03/03/2010 Appointment: María Elena Appiah WPtel: [address] [place] [address] FOLLOW UP 03/03/2010 Patient Education: Patient Medication Summary Completed 03/03/2010 Visit Plan: Check Pelvic US now Dukee tacho Sal C vs Hysterectomy 01/17/2010 Appointment: María Elena Appiah WPtel: [address] [place] [address] ACUTE ILLNESS 01/17/2010 Patient Education: Patient Medication Summary Completed 01/17/2010 Visit Plan: Check fasting lab and schedu le Mammogram 2gm Na Diet Trial of Ambien 10mg qhs Fwup pending lab results 12/27/2009 Appointment: María Elena Appiah WPtel: [phone] [id number] [place] ESTABLISHED PATIENT 12/27/2009 Patient Education: Patient Medication Summary Completed 12/27/2009 Referral: Canelo Overton WPtel: [address] [id number] [place] Referral Initiated Referral: Philipp Flores WPtel: [address] [id number] [place] Referral Appointment Requested Instructions Comment . [...] to rest and hydrate. Discussed stroke and [place] symptoms. Pt. instructed to seek ER eval [...]
--- OUTSIDE RECORDS SUMMARY | 2020-03-13 07:06 | XMS REPORT | CCD ---
Author Author Gale Appiah D.O. 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 Name Role Phone María Elena Appiah D.O., PP Unavailable CCM Unavailable Summary Purpose Interface Exchange Family History Family History data not found Social History Social History Element Codes Description Effective Dates Tobacco history SNOMED CT: 678224620 Never smoker 05/22/2011 Allergies, Adverse Reactions, Alerts [...] Instructions duloxetine 60 mg capsule,delayed release RxNorm: 786780 TAKE ONE CAPSULE BY MOUTH DAILY 09/11/2019 No Stop Date Active Lipitor 10 mg tablet RxNorm: 027909 TAKE ONE TABLET BY MOUTH AT BEDTIME 09/11/2019 No Stop Date Active lisinopril 20 mg tablet RxNorm: 158532 TAKE ONE TABLET BY MOUTH DAILY .... THIS REPLACE 10MG TABLETS 09/11/2019 No Stop Date Active triamterene 75 mg-hydrochlorothiazide 50 mg tablet RxNorm: 3 90078 TAKE ONE TABLET BY MOUTH DAILY 09/11/2019 No Stop Date Active allopurinol 300 mg tablet RxNorm: 624282 TAKE ONE TABLET BY LOPEZ TH DAILY 09/11/2019 No Stop Date Active celecoxib 200 mg capsule RxNorm: 985371 TAKE ONE CAPSUL E BY MOUTH TWICE A DAY NEEDED FOR PAIN 09/11/2019 No Stop Date Active clonidine HCl 0.1 mg tablet RxNorm: 665892 TAKE ONE TAB LET BY MOUTH FOUR TIMES A DAY 09/11/2019 No Stop Date Active doxepin 25 mg capsule RxNorm: 8704066 1 Capsule(s) Oral every night at bedtime as needed for sleep 08/21/2019 11/18/2019 Active hydrocodone 10 mg-acetaminophen 325 mg tablet RxNorm: 526328 1-2 Tablet(s) PO TID 08/12/2019 No Stop Date Active as needed for pa in - Previous quantity #240, will start dosing for #180 in April 2011 per Doctor Td. Medrol (Dustin) 4 mg tablets in a dose pack RxNorm: 874816 Tablet(s) Oral As Directed 07/21/2019 No Stop Date Active Premarin 1.25 mg tablet RxNorm: 072749 1 Tablet(s) Oral QD 07/02/20 19 03/28/2020 Active hydrocodone 10 mg-acetaminophen 325 mg tablet RxNorm: 405082 1-2 Tablet(s) PO TID 07/01/2019 08/11/2019 Inactive as needed for pa in - Previous quantity #240, will start dosing for #180 in April 2011 per Doctor Td. gabapentin 300 mg capsule RxNorm: 108552 1 Capsule(s) PO QHS 201809/24/2019 Active celecoxib 200 mg capsule RxNorm: 983495 1 Capsule(s) Or al two times a day as needed for pain 06/27/2019 06/27/2019 Inactive Singulair 10 mg tablet RxNorm: 289261 TAKE ONE TABLET BY MOUTH JOSÉ Y 06/24/2019 No Stop Date Active furosemide 40 mg tablet RxNorm: 019411 TAKE ONE TABLET BY MOUTH EVERY MORNING NEEDED FOR EDEMA . TAKE WITH POTASSIUM 06/24/2019 No Stop Date Active doxepin 25 mg capsule RxNorm: 8565672 TAKE ONE CAPSULE B Y MOUTH EVERY NIGHT AT BEDTIME NEEDED FOR SLEEP 06/24/2019 08/20/2019 Inactive lisinopril 20 mg tablet RxNorm: 950209 TAKE ONE TABLET BY MOUTH DAILY .... THIS REPLACE 10MG TABLETS 06/24/2019 09/10/2019 Inactive nystatin-triamcinolone 100,000 unit/g-0.1 % topical cream Rx Norm: 5644838 1 Application Topical two times a day 06/12/2019 06/19/2019 Inactive apply BID for 1 week nystatin-triamcinolone 100,000 unit/g-0.1 % topical cream Rx Norm: 0821576 1 Application Topical two times a day 06/12/2019 06/11/2019 Inactive apply BID for 1 week hydrocodone 10 mg-acetaminophen 325 mg tablet RxNorm: 286588 1-2 Tablet(s) PO QID as needed for pain MUST LAST 30 DAYS 05/28/2019 06/26/2019 Inactiv e (Response to an electronic controlled substance refill request - RxReferenceNumber: [id number]) baclofen 20 mg tablet RxNorm: 841555 1 Tablet(s) PO TID as needed for muscle spasm 05/19/2019 05/27/2019 Inactive gabapentin 300 mg capsule RxNorm: 135140 1 Capsule(s) PO QHS 201805/27/2019 Inactive lisinopril 20 mg tablet RxNorm: 682691 1 Tablet(s) PO Q D TAKE ONE TABLET BY MOUTH DAILY, REPLACES 10 MG DOSE 05/19/2019 06/23/2019 Inactive doxepin 25 mg capsule RxNorm: 7804310 TAKE ONE CAPSULE B Y MOUTH EVERY NIGHT AT BEDTIME NEEDED FOR SLEEP 05/16/2019 06/14/2019 Inactive lisinopril 20 mg tablet RxNorm: 887793 TAKE ONE TABLET BY MOUTH DAILY, REPLACES 10 MG DOSE 05/16/2019 05/18/2019 Inactive Singulair 10 mg tablet RxNorm: 048465 TAKE ONE TABLET BY MOUTH JOSÉ Y 05/16/2019 06/14/2019 Inactive gabapentin 300 mg capsule RxNorm: 737924 1 Capsule(s) PO QHS 201805/04/2019 Inactive estropipate 1.5 mg tablet RxNorm: 201148 1 Tablet(s) PO QD 05/05/2005/27/2019 Inactive estropipate 1.5 mg tablet RxNorm: 189082 1 Tablet(s) PO QD 05/05/2005/04/2019 Inactive gabapentin 300 mg capsule RxNorm: 822355 1 Capsule(s) PO QHS 201805/18/2019 Inactive hydrocodone 10 mg-acetaminophen 325 mg tablet RxNorm: 733112 1-2 Tablet(s) PO QID as needed for pain MUST LAST 30 DAYS 04/25/2019 05/24/2019 Inactiv e (Response to an electronic controlled substance refill request - RxReferenceNumber: [id number]) metoprolol tartrate 100 mg tablet RxNorm: 295450 TAKE O NE TABLET BY MOUTH TWICE A DAY 04/24/2019 06/22/2019 Inactive cyclobenzaprine 10 mg tablet RxNorm: 963932 TAKE ONE TA BLET BY MOUTH THREE TIMES A DAY NEEDED FOR MUSCLE SPASMS 04/24/2019 05/18/2019 Inactive Lyrica 75 mg capsule RxNorm: 537068 1 Capsule(s) PO QHS 03/25/2019 Inactive Klor-Con 8 mEq tablet,extended release RxNorm: 407637 T FARRUKH ONE TABLET BY MOUTH TWICE A DAY 03/21/2019 05/19/2019 Inactive duloxetine 60 mg capsule,delayed release RxNorm: 741547 TAKE ONE CAPSULE BY MOUTH DAILY 03/21/2019 05/19/2019 Inactive triamterene 75 mg-hydrochlorothiazide 50 mg tablet RxNorm: 3 25834 TAKE ONE TABLET BY MOUTH DAILY 03/21/2019 05/19/2019 Inactive Lipitor 10 mg tablet RxNorm: 415806 TAKE ONE TABLET BY MOUTH AT BEDTIME 03/21/2019 09/10/2019 Inactive clonidine HCl 0.1 mg tablet RxNorm: 464478 TAKE ONE TAB LET BY MOUTH FOUR TIMES A DAY 03/21/2019 05/19/2019 Inactive allopurinol 300 mg tablet RxNorm: 570307 TAKE ONE TABLET BY LOPEZ TH DAILY 03/21/2019 05/19/2019 Inactive hydrocodone 10 mg-acetaminophen 325 mg tablet RxNorm: 260740 1-2 Tablet(s) PO QID as needed for pain MUST LAST 30 DAYS 02/28/2019 03/29/2019 Inactiv e (Response to an electronic controlled substance refill request - RxReferenceNumber: [id number]) furosemide 40 mg tablet RxNorm: 540580 TAKE ONE TABLET BY MOUTH EVERY MORNING NEEDED FOR EDEMA . TAKE WITH POTASSIUM 02/21/2019 03/22/2019 Inactive cyclobenzaprine 10 mg tablet RxNorm: 761141 TAKE ONE TA BLET BY MOUTH THREE TIMES A DAY NEEDED FOR MUSCLE SPASMS 02/21/2019 04/21/2019 Inactive lisinopril 20 mg tablet RxNorm: 901256 TAKE ONE TABLET BY MOUTH DAILY, REPLACES 10 MG DOSE 02/21/2019 05/15/2019 Inactive doxepin 25 mg capsule RxNorm: 3674478 TAKE ONE CAPSULE B Y MOUTH EVERY NIGHT AT BEDTIME NEEDED FOR SLEEP 02/21/2019 05/15/2019 Inactive nystatin 100,000 unit/gram topical cream RxNorm: 066430 APPLY TO AFFECTED AREA(S) TWO TIMES A DAY 02/21/2019 03/22/2019 Inactive estradiol 1 mg tablet RxNorm: 524603 2 Tablet(s) PO QD replaces premarin 01/22/2019 05/04/2019 Inactive lisinopril 20 mg tablet RxNorm: 453972 TAKE ONE TABLET BY MOUTH DAILY, REPLACES 10 MG DOSE 01/20/2019 02/18/2019 Inactive cyclobenzaprine 10 mg tablet RxNorm: 372587 TAKE ONE TA BLET BY MOUTH THREE TIMES A DAY NEEDED FOR MUSCLE SPASMS 01/20/2019 02/18/2019 Inactive metoprolol tartrate 100 mg tablet RxNorm: 961632 TAKE O NE TABLET BY MOUTH TWICE A DAY 01/20/2019 02/18/2019 Inactive cyclobenzaprine 10 mg tablet RxNorm: 461315 TAKE ONE TA BLET BY MOUTH THREE TIMES A DAY NEEDED FOR MUSCLE SPASMS 12/19/2018 01/17/2019 Inactive lisinopril 20 mg tablet RxNorm: 185838 TAKE ONE TABLET BY MOUTH DAILY, REPLACES 10 MG DOSE 12/19/2018 01/17/2019 Inactive duloxetine 60 mg capsule,delayed release RxNorm: 357030 TAKE ONE CAPSULE BY MOUTH DAILY 12/19/2018 01/17/2019 Inactive Lipitor 10 mg tablet RxNorm: 448999 TAKE ONE TABLET BY MOUTH AT BEDTIME 12/19/2018 01/17/2019 Inactive cyclobenzaprine 10 mg tablet RxNorm: 606517 1 Tablet(s) PO TID as needed for muscle spasm 11/19/2018 12/18/2018 Inactive Singulair 10 mg tablet RxNorm: 192237 1 Tablet(s) PO QD 11/19/2018 Inactive lisinopril 20 mg tablet RxNorm: 718092 TAKE ONE TABLET BY MOUTH DAILY, REPLACES 10 MG DOSE 11/15/2018 12/18/2018 Inactive hydrocodone 10 mg-acetaminophen 325 mg tablet RxNorm: 587772 1-2 Tablet(s) PO QID as needed for pain MUST LAST 30 DAYS 11/13/2018 12/12/2018 Inactiv e (Response to an electronic controlled substance refill request - RxReferenceNumber: [id number]) nystatin 100,000 unit/gram topical cream RxNorm: 036041 APPLY TO AFFECTED AREA(S) TWO TIMES A DAY 10/23/2018 11/06/2018 Inactive lisinopril 20 mg tablet RxNorm: 389901 1 Tablet(s) PO QD replac es 10mg dose 10/18/2018 11/14/2018 Inactive hydrocodone 10 mg-acetaminophen 325 mg tablet RxNorm: 203756 1-2 Tablet(s) QID as needed for pain MUST LAST 30 DAYS 10/08/2018 11/06/2018 Inactive (Response to an electronic controlled substance refill request - RxReferenceNumber: [id number]) lisinopril 10 mg tablet RxNorm: 299701 1 Tablet(s) PO QD 10/03/2018 0 01/21/2019 Inactive Celebrex 200 mg capsule RxNorm: 719410 TAKE ONE CAPSULE BY MOUT H TWICE A DAY 09/30/2018 05/04/2019 Inactive cyclobenzaprine 10 mg tablet RxNorm: 489725 TAKE ONE TA BLET BY MOUTH THREE TIMES A DAY NEEDED FOR MUSCLE SPASMS 09/30/2018 11/18/2018 Inactive doxepin 25 mg capsule RxNorm: 4640069 TAKE ONE CAPSULE B Y MOUTH EVERY NIGHT AT BEDTIME NEEDED 09/05/2018 10/16/2018 Inactive omeprazole 40 mg capsule,delayed release RxNorm: 228409 TAKE ONE CAPSULE BY MOUTH DAILY 09/05/2018 01/21/2019 Inactive furosemide 40 mg tablet RxNorm: 185804 TAKE ONE TABLET BY MOUTH EVERY MORNING NEEDED FOR EDEMA . TAKE WITH POTASSIUM 09/05/2018 11/03/2018 Inactive phentermine 37.5 mg tablet RxNorm: 029392 1 Tablet(s) PO QAM 201701/21/2019 Inactive doxepin 25 mg capsule RxNorm: 5626215 1 Capsule(s) PO QH S as needed for sleep TAKE ONE CAPSULE BY MOUTH EVERY NIGHT AT BEDTIME NEEDED 08/27/2018 09/04/2018 Inactive Keflex 500 mg capsule RxNorm: 027618 1 Capsule(s) PO TID 08/09/2018 1 10/19/2017 Inactive Diflucan 100 mg tablet RxNorm: 006225 1 Tablet(s) PO QD 08/09/2018 Inactive Premarin 1.25 mg tablet RxNorm: 772939 2 Tablet(s) PO QD 08/09/2018 0 05/04/2019 Inactive Zofran ODT 4 mg disintegrating tablet RxNorm: 200675 1 Tablet(s) PO Q4H as needed for nausea 08/09/2018 01/21/2019 Inactive metoprolol tartrate 100 mg tablet RxNorm: 324422 TAKE O NE TABLET BY MOUTH TWICE A DAY 2018 10/04/2018 Inactive doxepin 25 mg capsule RxNorm: 7393409 TAKE ONE CAPSULE B Y MOUTH EVERY NIGHT AT BEDTIME NEEDED 2018 08/26/2018 Inactive cyclobenzaprine 10 mg tablet RxNorm: 682531 TAKE ONE TA BLET BY MOUTH THREE TIMES A DAY NEEDED FOR MUSCLE SPASMS 2018 09/29/2018 Inactive hydrocodone 10 mg-acetaminophen 325 mg tablet RxNorm: 486826 1-2 Tablet(s) QID as needed for pain MUST LAST 30 DAYS 07/29/2018 08/27/2018 Inactive (Response to an electronic controlled substance refill request - RxReferenceNumber: [id number]) nystatin 100,000 unit/gram topical powder RxNorm: 580290 Applic ation TOP BID 07/22/2018 08/04/2018 Inactive doxepin 25 mg capsule RxNorm: 4930500 1 Capsule(s) PO QHS as needed 07/22/2018 08/05/2018 Inactive triamterene 75 mg-hydrochlorothiazide 50 mg tablet RxNorm: 3 50675 TAKE ONE TABLET BY MOUTH DAILY 07/05/2018 10/02/2018 Inactive duloxetine 60 mg capsule,delayed release RxNorm: 068656 TAKE ONE CAPSULE BY MOUTH DAILY 07/05/2018 09/02/2018 Inactive Klor-Con 8 mEq tablet,extended release RxNorm: 729359 T FARRUKH ONE TABLET BY MOUTH TWICE A DAY 07/05/2018 10/02/2018 Inactive Lipitor 10 mg tablet RxNorm: 513520 TAKE ONE TABLET BY MOUTH AT BEDTIME 07/05/2018 09/02/2018 Inactive allopurinol 300 mg tablet RxNorm: 308044 TAKE ONE TABLET BY LOPEZ TH DAILY 07/05/2018 10/02/2018 Inactive clonidine HCl 0.1 mg tablet RxNorm: 073319 TAKE ONE TAB LET BY MOUTH FOUR TIMES A DAY 07/05/2018 10/02/2018 Inactive hydrocodone 10 mg-acetaminophen 325 mg tablet RxNorm: 494288 1-2 Tablet(s) QID as needed for pain MUST LAST 30 DAYS 06/28/2018 07/27/2018 Inactive (Response to an electronic controlled substance refill request - RxReferenceNumber: [id number]) MediHoney (calcium alginate-honey) 4" X 5" bandage RxNorm: 1 Application TOP QD 06/17/2018 06/26/2018 Inactive honey-hydrocolloid dressing 4" X 5" RxNorm: 1 Application TOP QD 06/17/2018 07/16/2018 Inactive furosemide 40 mg tablet RxNorm: 169925 TAKE ONE TABLET BY MOUTH EVERY MORNING NEEDED FOR EDEMA . TAKE WITH POTASSIUM 06/10/2018 07/09/2018 Inactive This is a refill request. hydrocodone 10 mg-acetaminophen 325 mg tablet RxNorm: 562793 1-2 Tablet(s) QID as needed for pain MUST LAST 30 DAYS 05/30/2018 06/27/2018 Inactive (Response to an electronic controlled substance refill request - RxReferenceNumber: [id number]) acyclovir 800 mg tablet RxNorm: 068830 1 Tablet(s) PO 5x day 201705/22/2018 Inactive Premarin 1.25 mg tablet RxNorm: 702437 1-2 Tablet(s) PO QD 05/15/2007/13/2018 Inactive cyclobenzaprine 10 mg tablet RxNorm: 388062 1 Tablet(s) PO TID as needed for muscle spasm 05/09/2018 05/08/2018 Inactive Medrol (Dustin) 4 mg tablets in a dose pack RxNorm: 191891 Tablet(s) PO As Directed 05/02/2018 06/16/2018 Inactive hydrocodone 10 mg-acetaminophen 325 mg tablet RxNorm: 615242 1-2 Tablet(s) QID as needed for pain MUST LAST 30 DAYS 04/30/2018 05/29/2018 Inactive (Response to an electronic controlled substance refill request - RxReferenceNumber: [id number]) duloxetine 60 mg capsule,delayed release RxNorm: 482653 TAKE ONE CAPSULE BY MOUTH DAILY 04/16/2018 05/15/2018 Inactive Celebrex 200 mg capsule RxNorm: 295163 TAKE ONE CAPSULE BY MOUT H TWICE A DAY 04/16/2018 06/14/2018 Inactive Singulair 10 mg tablet RxNorm: 336533 TAKE ONE TABLET BY MOUTH JOSÉ Y 04/16/2018 11/19/2018 Inactive Lipitor 10 mg tablet RxNorm: 318034 TAKE ONE TABLET BY MOUTH AT BEDTIME 04/16/2018 05/15/2018 Inactive hydrocodone 10 mg-acetaminophen 325 mg tablet RxNorm: 140726 1-2 Tablet(s) QID as needed for pain MUST LAST 30 DAYS 03/29/2018 04/27/2018 Inactive (Response to an electronic controlled substance refill request - RxReferenceNumber: [id number]) cyclobenzaprine 10 mg tablet RxNorm: 571995 1 Tablet(s) PO TID as needed for muscle spasm 03/18/2018 05/09/2018 Inactive omeprazole 40 mg capsule,delayed release RxNorm: 534027 1 Capsu le(s) PO QD 02/26/2018 08/24/2018 Inactive hydrocodone 10 mg-acetaminophen 325 mg tablet RxNorm: 196023 1-2 Tablet(s) QID as needed for pain MUST LAST 30 DAYS 02/26/2018 03/27/2018 Inactive (Response to an electronic controlled substance refill request - RxReferenceNumber: [id number]) metoprolol tartrate 100 mg tablet RxNorm: 334817 1 Tablet(s) PO BID 02/18/2018 08/05/2018 Inactive Lyrica 75 mg capsule RxNorm: 587415 1 Capsule(s) PO QHS 01/30/2018 Inactive phentermine 37.5 mg tablet RxNorm: 791634 1 Tablet(s) PO QAM 201706/16/2018 Inactive hydrocodone 10 mg-acetaminophen 325 mg tablet RxNorm: 524518 1-2 Tablet(s) QID as needed for pain MUST LAST 30 DAYS 01/29/2018 02/25/2018 Inactive (Response to an electronic controlled substance refill request - RxReferenceNumber: [id number]) Klor-Con 8 mEq tablet,extended release RxNorm: 363504 1 Tablet( s) PO BID 01/14/2018 07/04/2018 Inactive allopurinol 300 mg tablet RxNorm: 611907 1 Tablet(s) PO QD 01/15/2007/04/2018 Inactive Lipitor 10 mg tablet RxNorm: 186179 1 Tablet(s) PO QHS 01/14/201812/2017 Inactive triamterene 75 mg-hydrochlorothiazide 50 mg tablet RxNorm: 3 73202 1 Tablet(s) PO QD 01/14/2018 07/04/2018 Inactive hydrocodone 10 mg-acetaminophen 325 mg tablet RxNorm: 446171 1-2 Tablet(s) QID as needed for pain MUST LAST 30 DAYS 12/27/2017 01/25/2018 Inactive (Response to an electronic controlled substance refill request - RxReferenceNumber: [id number]) Onglyza 5 mg tablet RxNorm: 335050 1 Tablet(s) PO QD 12/18/201701/29 Inactive metformin 500 mg tablet RxNorm: 195055 1 Tablet(s) PO BID 12/11/2017 12/10/2017 Inactive metformin 500 mg tablet RxNorm: 364448 1 Tablet(s) PO BID 12/11/2017 12/17/2017 Inactive furosemide 40 mg tablet RxNorm: 869096 1 Tablet(s) PO Q AM prn edema--take with potassium 12/11/2017 06/08/2018 Inactive cyclobenzaprine 10 mg tablet RxNorm: 286651 1 Tablet(s) PO TID as needed for muscle spasm 12/11/2017 03/18/2018 Inactive hydrocodone 10 mg-acetaminophen 325 mg tablet RxNorm: 759554 1-2 Tablet(s) QID as needed for pain MUST LAST 30 DAYS 10/23/2017 11/21/2017 Inactive (Response to an electronic controlled substance refill request - RxReferenceNumber: [id number]) Lipitor 10 mg tablet RxNorm: 884823 1 Tablet(s) PO QHS 10/16/201703/2018 Inactive cyclobenzaprine 10 mg tablet RxNorm: 664705 1 Tablet(s) PO TID as needed for muscle spasm 10/09/2017 12/10/2017 Inactive hydroxyzine HCl 25 mg tablet RxNorm: 310068 1 Tablet(s) PO BID as needed for anxiety 09/20/2017 01/29/2018 Inactive Effexor XR 75 mg capsule,extended release RxNorm: 433246 1 Caps ule(s) PO QD 09/20/2017 01/29/2018 Inactive metoprolol tartrate 100 mg tablet RxNorm: 716199 1 Tablet(s) PO BID 08/20/2017 02/18/2018 Inactive baclofen 20 mg tablet RxNorm: 134338 1 Tablet(s) PO TID as needed for muscle spasm 08/20/2017 01/21/2019 Inactive clonidine HCl 0.1 mg tablet RxNorm: 432294 1 Tablet(s) PO QID 08/2005/16/2018 Inactive Seroquel 25 mg tablet RxNorm: 718445 1 Tablet(s) PO QHS 08/17/2017 Inactive Seroquel 25 mg tablet RxNorm: 656053 1 Tablet(s) PO QHS 08/17/2017 Inactive Diflucan 100 mg tablet RxNorm: 430029 TAKE ONE TABLET BY MOUTH JOSÉ Y 07/25/2017 08/07/2017 Inactive hydrocodone 10 mg-acetaminophen 325 mg tablet RxNorm: 125472 1-2 Tablet(s) QID as needed for pain MUST LAST 30 DAYS 07/19/2017 08/17/2017 Inactive (Response to an electronic controlled substance refill request - RxReferenceNumber: [id number]) clindamycin 300 mg capsule RxNorm: 192700 1 Capsule(s) PO TID 07/1907/28/2017 Inactive clotrimazole-betamethasone 1 %-0.05 % topical cream RxNorm: 672990 Application TOP BID to elbow rash 07/19/2017 06/16/2018 Inactive Singulair 10 mg tablet RxNorm: 139848 Tablet(s) TAKE ONE TABLET BY MOUTH DAILY 07/18/2017 04/13/2018 Inactive triamterene 75 mg-hydrochlorothiazide 50 mg tablet RxNorm: 3 33250 1 Tablet(s) PO QD 07/18/2017 01/14/2018 Inactive Celebrex 200 mg capsule RxNorm: 098616 Capsule(s) TAKE ONE CAPSULE BY MOUTH TWICE A DAY 07/18/2017 10/15/2017 Inactive hydrocodone 10 mg-acetaminophen 325 mg tablet RxNorm: 739125 1-2 Tablet(s) QID as needed for pain MUST LAST 30 DAYS 06/19/2017 07/18/2017 Inactive (Response to an electronic controlled substance refill request - RxReferenceNumber: [id number]) hydrocodone 10 mg-acetaminophen 325 mg tablet RxNorm: 043049 1-2 Tablet(s) QID as needed for pain MUST LAST 30 DAYS 06/19/2017 06/18/2017 Inactive (Response to an electronic controlled substance refill request - RxReferenceNumber: [id number]) baclofen 20 mg tablet RxNorm: 414972 1 Tablet(s) PO TID as needed for muscle spasm 06/18/2017 08/20/2017 Inactive Medrol (Dustin) 4 mg tablets in a dose pack RxNorm: 525464 Tablet(s) PO As Directed 06/05/2017 07/18/2017 Inactive omeprazole 40 mg capsule,delayed release RxNorm: 114320 1 Capsu le(s) PO QD 04/20/2017 10/16/2017 Inactive Premarin 1.25 mg tablet RxNorm: 973408 1-2 Tablet(s) PO QD 04/11/20 17 05/15/2018 Inactive duloxetine 60 mg capsule,delayed release RxNorm: 695869 1 Capsu le(s) PO QD 04/11/2017 09/19/2017 Inactive furosemide 40 mg tablet RxNorm: 161037 1 Tablet(s) PO Q AM prn edema--take with potassium 04/11/2017 12/11/2017 Inactive Klor-Con 8 mEq tablet,extended release RxNorm: 544961 1 Tablet( s) PO BID 04/11/2017 01/14/2018 Inactive Lipitor 10 mg tablet RxNorm: 356465 1 Tablet(s) PO QHS 04/11/201702/2018 Inactive amlodipine 5 mg-benazepril 20 mg capsule RxNorm: 594510 1 Capsu le(s) PO QD 04/11/2017 01/29/2018 Inactive allopurinol 300 mg tablet RxNorm: 222328 1 Tablet(s) PO QD 04/11/20 17 01/14/2018 Inactive clonidine HCl 0.1 mg tablet RxNorm: 123653 1 Tablet(s) PO QID 04/0508/19/2017 Inactive baclofen 20 mg tablet RxNorm: 019499 1 Tablet(s) PO TID as needed for muscle spasm 04/02/2017 06/18/2017 Inactive Premarin 1.25 mg tablet RxNorm: 878378 1-2 Tablet(s) PO QD 03/20/20 17 04/10/2017 Inactive hydrocodone 10 mg-acetaminophen 325 mg tablet RxNorm: 538152 1-2 Tablet(s) QID as needed for pain MUST LAST 30 DAYS 03/14/2017 01/21/2019 Inactive (Response to an electronic controlled substance refill request - RxReferenceNumber: [id number]) metoprolol tartrate 100 mg tablet RxNorm: 325963 1 Tablet(s) PO BID 02/12/2017 08/20/2017 Inactive hydrocodone 10 mg-acetaminophen 325 mg tablet RxNorm: 621233 1-2 Tablet(s) QID as needed for pain MUST LAST 30 DAYS 02/08/2017 03/09/2017 Inactive (Response to an electronic controlled substance refill request [id number]) metoprolol tartrate 100 mg tablet RxNorm: 375772 TAKE O NE TABLET BY MOUTH TWICE A DAY 01/11/2017 02/12/2017 Inactive metoprolol tartrate 100 mg tablet RxNorm: 719079 1 Tablet(s) PO BID 12/18/2016 12/17/2016 Inactive metoprolol tartrate 100 mg tablet RxNorm: 069994 1 Tablet(s) PO BID 12/18/2016 01/10/2017 Inactive furosemide 40 mg tablet RxNorm: 066825 1 Tablet(s) PO Q AM prn edema--take with potassium 12/13/2016 02/10/2017 Inactive amitriptyline 100 mg tablet RxNorm: 168619 1 Tablet(s) PO QHS 11/2812/12/2016 Inactive baclofen 20 mg tablet RxNorm: 759313 1 Tablet(s) PO TID as needed for muscle spasm 11/14/2016 04/01/2017 Inactive triamterene 75 mg-hydrochlorothiazide 50 mg tablet RxNorm: 3 00339 1 Tablet(s) PO QD 11/14/2016 11/13/2016 Inactive metolazone 2.5 mg tablet RxNorm: 474996 TAKE ONE TABLET BY MOUTH DAILY NEEDED FOR EDEMA 11/14/2016 12/12/2016 Inactive triamterene 75 mg-hydrochlorothiazide 50 mg tablet RxNorm: 3 88752 1 Tablet(s) PO QD 11/14/2016 07/18/2017 Inactive amitriptyline 50 mg tablet RxNorm: 766058 TAKE ONE TABL ET BY MOUTH AT BEDTIME NEEDED FOR SLEEP 11/14/2016 11/27/2016 Inactive Cymbalta 60 mg capsule,delayed release RxNorm: 437761 1 Capsule (s) PO QHS 11/14/2016 12/12/2016 Inactive clonidine HCl 0.1 mg tablet RxNorm: 988874 1 Tablet(s) PO QID 11/1304/04/2017 Inactive amitriptyline 50 mg tablet RxNorm: 021943 1 Tablet(s) P O QHS as needed for sleep 11/01/2016 11/27/2016 Inactive duloxetine 60 mg capsule,delayed release RxNorm: 209288 TAKE ONE CAPSULE BY MOUTH DAILY 10/20/2016 01/17/2017 Inactive allopurinol 300 mg tablet RxNorm: 806722 TAKE ONE TABLET BY LOPEZ TH DAILY 10/20/2016 01/16/2017 Inactive Lyrica 75 mg capsule RxNorm: 968694 TAKE ONE CAPSULE BY MOUTH EVERY NIGHT AT BEDTIME 10/20/2016 12/10/2016 Inactive Klor-Con 8 mEq tablet,extended release RxNorm: 175539 T FARRUKH ONE TABLET BY MOUTH TWICE A DAY 10/20/2016 01/17/2017 Inactive Celebrex 200 mg capsule RxNorm: 250216 TAKE ONE CAPSULE BY MOUT H TWICE A DAY 10/20/2016 07/18/2017 Inactive Bystolic 10 mg tablet RxNorm: 099205 TAKE ONE TABLET BY MOUTH EVERY NIGHT AT BEDTIME 10/20/2016 12/17/2016 Inactive amlodipine 5 mg-benazepril 20 mg capsule RxNorm: 849778 TAKE ONE CAPSULE BY MOUTH EVERY NIGHT AT BEDTIME -- TO REPLACE AMLODOPINE 10/20/20162016 Inactive Lipitor 10 mg tablet RxNorm: 052489 TAKE ONE TABLET BY MOUTH EVERY NIGHT AT BEDTIME 10/20/2016 01/17/2017 Inactive alprazolam 0.5 mg tablet RxNorm: 127227 3 Tablet(s) PO QHS as needed for sleep/anxiety 09/20/2016 10/31/2016 Inactive Tamiflu 75 mg capsule RxNorm: 248315 1 Capsule(s) PO QD 09/19/2016 Inactive Lyrica 75 mg capsule RxNorm: 403165 1 Capsule(s) PO QHS 09/19/2016 Inactive prednisone 20 mg tablet RxNorm: 754875 1 Tablet(s) PO QD 08/10/2016 1 10/17/2015 Inactive doxycycline hyclate 100 mg capsule RxNorm: 5197314 1 Capsule(s) PO BID 08/10/2016 08/19/2016 Inactive Medrol (Dustin) 4 mg tablets in a dose pack RxNorm: 487890 Tablet(s) PO As Directed 07/31/2016 08/22/2016 Inactive Singulair 10 mg tablet RxNorm: 644598 TAKE ONE TABLET BY MOUTH JOSÉ Y 07/27/2016 07/18/2017 Inactive hydrocodone 10 mg-acetaminophen 325 mg tablet RxNorm: 696101 1-2 Tablet(s) QID as needed for pain MUST LAST 30 DAYS 07/26/2016 08/24/2016 Inactive (Response to an electronic controlled substance refill request - RxReferenceNumber: [id number]) alprazolam 0.5 mg tablet RxNorm: 676326 3 Tablet(s) PO QHS as needed for anxiety or sleep 07/26/2016 09/20/2016 Inactive clindamycin 300 mg capsule RxNorm: 941139 1 Capsule(s) PO TID 07/2007/29/2016 Inactive Diflucan 100 mg tablet RxNorm: 196189 1 Tablet(s) PO QD 07/20/2016 Inactive Levaquin 500 mg tablet RxNorm: 496284 1 Tablet(s) PO QD 07/17/2016 Inactive Levaquin 500 mg tablet RxNorm: 170671 1 Tablet(s) PO QD 07/10/2016 Inactive Levaquin 500 mg tablet RxNorm: 630959 1 Tablet(s) PO QD 07/10/2016 Inactive mupirocin 2 % topical ointment RxNorm: 939824 TOP Apply topically to affected areas twice daily 07/06/2016 09/18/2016 Inactive Singulair 10 mg tablet RxNorm: 274940 TAKE ONE TABLET BY MOUTH JOSÉ Y 06/21/2016 01/21/2019 Inactive alprazolam 0.5 mg tablet RxNorm: 485494 TAKE THREE TABL ETS BY MOUTH AT BEDTIME NEEDED FOR SLEEP OR STRESS 05/22/2016 06/20/2016 Inactive triamterene 75 mg-hydrochlorothiazide 50 mg tablet RxNorm: 3 85728 1 Tablet(s) PO QD 04/26/2016 10/21/2016 Inactive Premarin 1.25 mg tablet RxNorm: 299158 1-2 Tablet(s) PO QD 04/26/20 16 03/20/2017 Inactive Klor-Con 8 mEq tablet,extended release RxNorm: 021809 1 Tablet( s) PO BID 04/26/2016 10/19/2016 Inactive Celebrex 200 mg capsule RxNorm: 855092 1 Capsule(s) PO BID TAKE ONE CAPSULE BY MOUTH EVERY DAY 04/26/2016 10/19/2016 Inactive Lipitor 10 mg tablet RxNorm: 189713 1 Tablet(s) PO QHS 04/26/201605/2017 Inactive allopurinol 300 mg tablet RxNorm: 568055 1 Tablet(s) PO QD TAKE ONE TABLET BY MOUTH EVERY DAY 04/26/2016 10/19/2016 Inactive amlodipine 5 mg-benazepril 20 mg capsule RxNorm: 101394 1 Capsule(s) PO QHS replaces amlodopine 04/26/2016 10/19/2016 Inactive duloxetine 60 mg capsule,delayed release RxNorm: 382195 1 Capsu le(s) PO QD 04/26/2016 10/19/2016 Inactive Bystolic 10 mg tablet RxNorm: 259224 1 Tablet(s) PO QHS 04/26/2016 Inactive Singulair 10 mg tablet RxNorm: 812939 1 Tablet(s) PO QD TAKE ONE TABLET BY MOUTH DAILY 04/26/2016 06/20/2016 Inactive clonidine HCl 0.1 mg tablet RxNorm: 617145 1 Tablet(s) PO QID 04/2610/22/2016 Inactive hydrocodone 10 mg-acetaminophen 325 mg tablet RxNorm: 445327 1-2 Tablet(s) QID as needed for pain TAKE ONE TO TWO TABLETS BY MOUTH FOUR TIMES A DAY . MUST LAST 30 DAYS 03/31/2016 04/29/2016 Inactive (Response to an electronic controlled substance refill request - RxReferenceNumber: [id number]) Klor-Con 8 mEq tablet,extended release RxNorm: 875177 T FARRUKH ONE TABLET BY MOUTH TWICE A DAY 03/24/2016 04/22/2016 Inactive prednisone 20 mg tablet RxNorm: 079312 1 Tablet(s) PO QD 03/09/2016 0 03/08/2016 Inactive prednisone 20 mg tablet RxNorm: 995303 1 Tablet(s) PO QD 03/09/2016 0 03/13/2016 Inactive alprazolam 0.5 mg tablet RxNorm: 297170 3 Tablet(s) PO QHS as needed for sleep/stress 03/02/2016 01/21/2019 Inactive mupirocin 2 % topical ointment RxNorm: 607468 TOP twice daily to affected areas of face and neck 02/21/2016 04/25/2016 Inactive clonidine HCl 0.1 mg tablet RxNorm: 279362 TAKE ONE TAB LET BY MOUTH FOUR TIMES A DAY 02/15/2016 03/15/2016 Inactive clonidine HCl 0.1 mg tablet RxNorm: 115422 1 Tablet(s) PO QID 02/1404/25/2016 Inactive Premarin 1.25 mg tablet RxNorm: 319951 1-2 Tablet(s) PO QD 02/15/20 16 03/15/2016 Inactive Klor-Con 8 mEq tablet,extended release RxNorm: 870264 T FARRUKH ONE TABLET BY MOUTH TWICE A DAY 02/15/2016 03/15/2016 Inactive potassium chloride ER 20 mEq tablet,extended release(part/cr yst) RxNorm: 101799 2 Tablet(s) PO BID 02/15/2016 03/15/2016 Inactive Macrobid 100 mg capsule RxNorm: 447823 1 Capsule(s) PO BID 01/24/20 16 01/30/2016 Inactive prednisone 20 mg tablet RxNorm: 317160 Take 3tabs PO QD x 2 days, then 2 tabs PO QD x 2 days, then 1 tab PO QD x 2 days, then 1/2 tab PO QDy x 2 days 12/23/2015 04/25/2016 Inactive Klor-Con 8 mEq tablet,extended release RxNorm: 065996 T FARRUKH ONE TABLET BY MOUTH TWICE A DAY 12/20/2015 02/14/2016 Inactive alprazolam 1 mg tablet RxNorm: 675420 1 1/2 Tablet(s) PO QHS 201501/23/2016 Inactive nystatin 100,000 unit/gram topical cream RxNorm: 017441 APPLY TO AFFECTED AREA(S) TWO TIMES A DAY 11/30/2015 12/14/2015 Inactive Singulair 10 mg tablet RxNorm: 051849 TAKE ONE TABLET BY MOUTH JOSÉ Y 11/18/2015 04/25/2016 Inactive allopurinol 300 mg tablet RxNorm: 752627 1 Tablet(s) PO QD TAKE ONE TABLET BY MOUTH EVERY DAY 10/26/2015 04/22/2016 Inactive Singulair 10 mg tablet RxNorm: 023959 TAKE ONE TABLET BY MOUTH JOSÉ Y 10/26/2015 11/17/2015 Inactive duloxetine 60 mg capsule,delayed release RxNorm: 914876 1 Capsu le(s) PO QD 10/26/2015 04/22/2016 Inactive triamterene 75 mg-hydrochlorothiazide 50 mg tablet RxNorm: 3 96021 1 Tablet(s) PO QD 10/26/2015 11/14/2016 Inactive potassium chloride ER 20 mEq tablet,extended release(part/cr yst) RxNorm: 577440 2 Tablet(s) PO BID 10/26/2015 02/14/2016 Inactive Lipitor 10 mg tablet RxNorm: 557824 1 Tablet(s) PO QHS 10/26/2015 Inactive amlodipine 5 mg-benazepril 20 mg capsule RxNorm: 901795 1 Capsule(s) PO QHS replaces amlodopine 10/26/2015 04/22/2016 Inactive Bystolic 10 mg tablet RxNorm: 547027 1 Tablet(s) PO QHS 10/26/2015 Inactive amlodipine 5 mg-benazepril 20 mg capsule RxNorm: 829208 1 Capsule(s) PO QHS replaces amlodopine 10/06/2015 10/25/2015 Inactive amlodipine 5 mg tablet RxNorm: 853985 1 Tablet(s) PO QHS 09/30/2015 0 04/25/2016 Inactive metolazone 2.5 mg tablet RxNorm: 188824 TAKE ONE TABLET BY MOUTH DAILY NEEDED FOR EDEMA 09/30/2015 01/21/2019 Inactive duloxetine 60 mg capsule,delayed release RxNorm: 000386 1 Capsu le(s) PO QD 09/30/2015 10/25/2015 Inactive cephalexin 500 mg capsule RxNorm: 480449 1 Capsule(s) PO BID 201509/23/2015 Inactive mupirocin 2 % topical ointment RxNorm: 954187 TOP twice daily to affected areas of face and neck 09/14/2015 02/20/2016 Inactive baclofen 20 mg tablet RxNorm: 025117 1 Tablet(s) PO TID as needed for muscle spasm 09/01/2015 11/14/2016 Inactive clonidine HCl 0.1 mg tablet RxNorm: 115250 1 Tablet(s) PO QID 09/0102/14/2016 Inactive alprazolam 1 mg tablet RxNorm: 953593 1 1/2 Tablet(s) PO QHS 201409/09/2015 Inactive baclofen 20 mg tablet RxNorm: 522976 1 Tablet(s) PO TID as needed for muscle spasm 07/23/2015 09/01/2015 Inactive omeprazole 40 mg capsule,delayed release RxNorm: 201857 1 Capsu le(s) PO QD 07/23/2015 04/25/2016 Inactive alprazolam 1 mg tablet RxNorm: 702627 1 1/2 Tablet(s) PO QHS 201408/10/2015 Inactive Bystolic 10 mg tablet RxNorm: 282577 1 Tablet(s) PO BID 06/24/2015 Inactive allopurinol 300 mg tablet RxNorm: 323368 1 Tablet(s) PO QD TAKE ONE TABLET BY MOUTH EVERY DAY 06/23/2015 10/20/2015 Inactive alprazolam 1 mg tablet RxNorm: 146936 1 1/2 Tablet(s) PO QHS 201407/06/2015 Inactive clonidine HCl 0.1 mg tablet RxNorm: 255823 1 Tablet(s) PO QID 06/0209/01/2015 Inactive clonidine HCl 0.1 mg tablet RxNorm: 350376 1 Tablet(s) PO QID 06/0206/01/2015 Inactive Cymbalta 60 mg capsule,delayed release RxNorm: 396440 1 Capsule (s) PO QHS 06/02/2015 08/30/2015 Inactive Cymbalta 60 mg capsule,delayed release RxNorm: 902456 1 Capsule (s) PO QHS 06/02/2015 06/01/2015 Inactive clonidine HCl 0.1 mg tablet RxNorm: 326036 1 Tablet(s) PO TID 05/3106/01/2015 Inactive replaces 0.2mg dose metolazone 2.5 mg tablet RxNorm: 096018 TAKE ONE TABLET BY MOUTH DAILY NEEDED FOR EDEMA 05/21/2015 06/19/2015 Inactive Singulair 10 mg tablet RxNorm: 579774 TAKE ONE TABLET BY MOUTH JOSÉ Y 05/21/2015 10/17/2015 Inactive Cymbalta 30 mg capsule,delayed release RxNorm: 035101 1 Capsule (s) PO QHS 05/20/2015 11/14/2016 Inactive betamethasone valerate 0.1 % topical cream RxNorm: 514703 Appli cation TOP BID 05/10/2015 04/25/2016 Inactive Bactroban 2 % topical ointment RxNorm: 698189 Application TOP BID 0 05/10/2015 06/20/2015 Inactive baclofen 20 mg tablet RxNorm: 278229 1 Tablet(s) PO TID as needed 0 04/26/2015 07/23/2015 Inactive Lipitor 10 mg tablet RxNorm: 339625 1 Tablet(s) PO QHS 04/26/201508/2016 Inactive clonidine HCl 0.1 mg tablet RxNorm: 614677 1 Tablet(s) PO TID 04/2605/30/2015 Inactive replaces 0.2mg dose Klor-Con 8 mEq tablet,extended release RxNorm: 178430 1 Tablet( s) PO BID 04/26/2015 04/25/2016 Inactive metolazone 2.5 mg tablet RxNorm: 931953 1 Tablet(s) PO QD as ne eded for edema 04/26/2015 04/25/2015 Inactive triamterene 75 mg-hydrochlorothiazide 50 mg tablet RxNorm: 3 04199 1 Tablet(s) PO QD 04/26/2015 10/22/2015 Inactive Premarin 1.25 mg tablet RxNorm: 054518 1-2 Tablet(s) PO QD 04/26/20 15 10/22/2015 Inactive Bystolic 10 mg tablet RxNorm: 064215 1 Tablet(s) PO QAM TAKE ONE TABLET BY MOUTH EVERY MORNING 04/23/2015 06/23/2015 Inactive clonidine HCl 0.1 mg tablet RxNorm: 205376 1 Tablet(s) PO TID 03/2304/25/2015 Inactive replaces 0.2mg dose nystatin 100,000 unit/gram topical cream RxNorm: 954933 Applica tion TOP BID 03/23/2015 06/20/2015 Inactive baclofen 20 mg tablet RxNorm: 618192 1 Tablet(s) PO TID as needed 0 03/23/2015 04/25/2015 Inactive Premarin 1.25 mg tablet RxNorm: 219681 1-2 Tablet(s) PO QD 03/23/20 15 04/25/2015 Inactive Klor-Con 8 mEq tablet,extended release RxNorm: 999359 1 Tablet( s) PO BID 03/23/2015 04/25/2015 Inactive cefdinir 300 mg capsule RxNorm: 196137 2 Capsule(s) PO QD 03/16/2015 03/25/2015 Inactive baclofen 20 mg tablet RxNorm: 946802 1 Tablet(s) PO TID as needed 0 03/02/2015 03/22/2015 Inactive allopurinol 300 mg tablet RxNorm: 878725 1 Tablet(s) PO QD TAKE ONE TABLET BY MOUTH EVERY DAY 02/22/2015 05/22/2015 Inactive Klor-Con M20 mEq tablet,extended release RxNorm: 477315 2 Tablet(s) PO BID to use with lasix 02/22/2015 06/20/2015 Inactive clonidine HCl 0.1 mg tablet RxNorm: 405553 1 Tablet(s) PO TID 02/1903/22/2015 Inactive replaces 0.2mg dose Lipitor 10 mg tablet RxNorm: 921968 1 Tablet(s) PO QHS 01/20/201506/2015 Inactive Lipitor 10 mg tablet RxNorm: 088257 1 Tablet(s) PO QHS 01/20/2015 Inactive Singulair 10 mg tablet RxNorm: 694160 1 Tablet(s) PO QD TAKE ONE TABLET BY MOUTH EVERY DAY 11/20/2014 05/18/2015 Inactive Lipitor 10 mg tablet RxNorm: 419847 1 Tablet(s) PO QHS 11/20/201408/2015 Inactive allopurinol 300 mg tablet RxNorm: 328457 1 Tablet(s) PO QD TAKE ONE TABLET BY MOUTH EVERY DAY 11/20/2014 02/16/2015 Inactive Bystolic 10 mg tablet RxNorm: 868553 1 Tablet(s) PO QAM TAKE ONE TABLET BY MOUTH EVERY MORNING 11/20/2014 04/22/2015 Inactive Klor-Con 8 mEq tablet,extended release RxNorm: 627804 1 Tablet( s) PO BID 11/20/2014 02/17/2015 Inactive baclofen 20 mg tablet RxNorm: 760990 1 Tablet(s) PO TID as needed 0 11/20/2014 01/21/2019 Inactive baclofen 20 mg tablet RxNorm: 818650 1 Tablet(s) PO TID as needed 0 10/27/2014 11/19/2014 Inactive baclofen 20 mg tablet RxNorm: 408134 1 Tablet(s) PO TID as needed 0 10/26/2014 03/01/2015 Inactive allopurinol 300 mg tablet RxNorm: 924414 1 Tablet(s) PO QD TAKE ONE TABLET BY MOUTH EVERY DAY 10/26/2014 11/20/2014 Inactive Bystolic 10 mg tablet RxNorm: 407188 1 Tablet(s) PO QAM TAKE ONE TABLET BY MOUTH EVERY MORNING 10/26/2014 11/20/2014 Inactive clonidine HCl 0.1 mg tablet RxNorm: 587739 1 Tablet(s) PO TID 09/2805/27/2019 Inactive replaces 0.2mg dose clonidine HCl 0.1 mg tablet RxNorm: 893214 1 Tablet(s) PO TID 09/2802/18/2015 Inactive replaces 0.2mg dose baclofen 20 mg tablet RxNorm: 453566 1 Tablet(s) PO TID as needed 1 11/01/2013 08/30/2014 Inactive Lipitor 10 mg tablet RxNorm: 882788 1 Tablet(s) PO QHS 08/31/2014 Inactive baclofen 20 mg tablet RxNorm: 215729 1 Tablet(s) PO TID as needed 1 11/01/2013 10/26/2014 Inactive triamterene 75 mg-hydrochlorothiazide 50 mg tablet RxNorm: 3 48015 1 Tablet(s) PO QD 08/31/2014 02/26/2015 Inactive Klor-Con 8 mEq tablet,extended release RxNorm: 718408 1 Tablet( s) PO BID 08/31/2014 11/20/2014 Inactive baclofen 20 mg tablet RxNorm: 334168 1 Tablet(s) PO TID as needed 1 09/30/2013 10/25/2014 Inactive baclofen 20 mg tablet RxNorm: 449650 1 Tablet(s) PO TID as needed 1 09/30/2013 08/31/2014 Inactive omeprazole 40 mg capsule,delayed release RxNorm: 452089 1 Capsu le(s) PO QD 07/21/2014 07/23/2015 Inactive Flonase 50 mcg/actuation nasal spray,suspension RxNorm: 8963 23 1 [place] NASAL BID 07/15/2014 04/09/2017 Inactive hydrocodone 10 mg-acetaminophen 325 mg tablet RxNorm: 980707 1-2 Tablet(s) QID as needed for pain TAKE ONE TO TWO TABLETS BY MOUTH FOUR TIMES A DAY . MUST LAST 30 DAYS 06/30/2014 07/27/2014 Inactive (Response to an electronic controlled substance refill request - RxReferenceNumber: [id number]) baclofen 20 mg tablet RxNorm: 704514 1 Tablet(s) PO TID as needed 1 07/31/2014 Inactive Singulair 10 mg tablet RxNorm: 381227 1 Tablet(s) PO QD TAKE ONE TABLET BY MOUTH EVERY DAY 05/25/2014 11/20/2014 Inactive Bystolic 10 mg tablet RxNorm: 448661 TAKE ONE TABLET BY MOUTH E VERY MORNING 05/25/2014 09/21/2014 Inactive allopurinol 300 mg tablet RxNorm: 532784 1 Tablet(s) PO QD TAKE ONE TABLET BY MOUTH EVERY DAY 05/25/2014 10/21/2014 Inactive baclofen 20 mg tablet RxNorm: 231970 1 Tablet(s) PO TID as needed 0 05/25/2014 06/29/2014 Inactive allopurinol 300 mg tablet RxNorm: 792153 TAKE ONE TABLET BY LOPEZ TH EVERY DAY 05/25/2014 09/21/2014 Inactive Singulair 10 mg tablet RxNorm: 199439 1 Tablet(s) PO QD TAKE ONE TABLET BY MOUTH EVERY DAY 05/25/2014 05/24/2014 Inactive Bystolic 10 mg tablet RxNorm: 676919 1 Tablet(s) PO QAM TAKE ONE TABLET BY MOUTH EVERY MORNING 05/25/2014 10/21/2014 Inactive metolazone 2.5 mg tablet RxNorm: 825099 1 Tablet(s) PO QD as ne eded for edema 05/18/2014 04/25/2015 Inactive Lasix 40 mg tablet RxNorm: 904037 1 Tablet(s) PO RAZA ramirez take potassium supplementation with this medication 05/14/2014 05/17/2014 Inactive hydrocodone 10 mg-acetaminophen 325 mg tablet RxNorm: 597403 1-2 Tablet(s) QID as needed for pain TAKE ONE TO TWO TABLETS BY MOUTH FOUR TIMES A DAY . MUST LAST 30 DAYS 05/07/2014 06/05/2014 Inactive (Response to an electronic controlled substance refill request - RxReferenceNumber: [id number]) alprazolam 0.5 mg tablet RxNorm: 902220 TAKE ONE TABLET BY MOUTH TWICE A DAY , MUST LAST 30 DAYS 05/07/2014 05/22/2016 Inactive (Response to a n electronic controlled substance refill request - RxReferenceNumber: [id number]) diclofenac sodium 75 mg tablet,delayed release RxNorm: 65200 6 1 Tablet(s) PO BID for pain 04/24/2014 07/20/2014 Inactive Celebrex 200 mg capsule RxNorm: 641633 TAKE ONE CAPSULE BY MOUT H EVERY DAY 04/24/2014 07/20/2014 Inactive alprazolam 0.5 mg tablet RxNorm: 258671 TAKE ONE TABLET BY MOUTH TWICE A DAY , MUST LAST 30 DAYS 03/24/2014 04/22/2014 Inactive (Response to a n electronic controlled substance refill request - RxReferenceNumber: [id number]) diclofenac sodium 75 mg tablet,delayed release RxNorm: 83983 6 1 Tablet(s) PO BID for pain 03/24/2014 04/24/2014 Inactive clonidine HCl 0.1 mg tablet RxNorm: 281179 1 Tablet(s) PO TID 03/2409/28/2014 Inactive replaces 0.2mg dose Klor-Con 8 mEq tablet,extended release RxNorm: 376450 1 Tablet( s) PO BID 02/26/2014 08/31/2014 Inactive diclofenac sodium 75 mg tablet,delayed release RxNorm: 05078 6 1 Tablet(s) PO BID for pain 02/25/2014 03/24/2014 Inactive hydrocodone 10 mg-acetaminophen 325 mg tablet RxNorm: 017953 1-2 Tablet(s) QID as needed for pain TAKE ONE TO TWO TABLETS BY MOUTH FOUR TIMES A DAY . MUST LAST 30 DAYS 02/25/2014 03/26/2014 Inactive (Response to an electronic controlled substance refill request - RxReferenceNumber: [id number]) alprazolam 0.5 mg tablet RxNorm: 424007 Tablet(s) PO BI D as needed for anxiety TAKE ONE TABLET BY MOUTH TWICE A DAY , MUST LAST 30 DAYS 02/25/2014 Inactive (Response to an electronic controlled [place] bstance refill request - RxReferenceNumber: [id number]) [AttnRPh: Saving apply/adjudicate RxGRP:SG20 RxBIN:[id number] RxPCN: ID#:[id number]] alprazolam 0.5 mg tablet RxNorm: 885790 Tablet(s) TAKE ONE TABLET BY MOUTH TWICE A DAY , MUST LAST 30 DAYS 01/27/2014 02/24/2014 Inactive (Respo nse to an electronic controlled substance refill request - RxReferenceNumber: [id number]) [AttnRPh: Saving apply/adjudicate RxGRP:SG20 RxBIN:[id number] RxPCN: ID#:[id number]] hydrocodone 10 mg-acetaminophen 325 mg tablet RxNorm: 707145 1-2 Tablet(s) QID as needed for pain TAKE ONE TO TWO TABLETS BY MOUTH FOUR TIMES A DAY . MUST LAST 30 DAYS 01/27/2014 02/24/2014 Inactive (Response to an electronic controlled substance refill request - RxReferenceNumber: [id number]) alprazolam 0.5 mg tablet RxNorm: 438520 TAKE ONE TABLET BY MOUTH TWICE A DAY , MUST LAST 30 DAYS 01/27/2014 01/26/2014 Inactive (Response to a n electronic controlled substance refill request - RxReferenceNumber: [id number]) Premarin 1.25 mg tablet RxNorm: 550893 1-2 Tablet(s) PO QD 01/28/20 14 07/25/2014 Inactive alprazolam 0.5 mg tablet RxNorm: 315571 TAKE ONE TABLET BY MOUTH TWICE A DAY , MUST LAST 30 DAYS 01/27/2014 01/27/2014 Inactive (Response to a n electronic controlled substance refill request - RxReferenceNumber: [id number]) hydrocodone 10 mg-acetaminophen 325 mg tablet RxNorm: 693010 TAKE ONE TO TWO TABLETS BY MOUTH FOUR TIMES A DAY . MUST LAST 30 DAYS 01/27/20142013 Inactive (Response to an electronic controlled [place] bstance refill request - RxReferenceNumber: [id number]) Celebrex 200 mg capsule RxNorm: 883223 1 Capsule(s) PO QD TAKE ONE CAPSULE BY MOUTH EVERY DAY 12/29/2013 04/27/2014 Inactive hydrocodone 10 mg-acetaminophen 325 mg tablet RxNorm: 182580 1-2 Tablet(s) PO QID as needed for severe pain 12/29/2013 01/27/2014 Inactive allopurinol 300 mg tablet RxNorm: 376023 1 Tablet(s) PO QD TAKE ONE TABLET BY MOUTH EVERY DAY 12/29/2013 05/24/2014 Inactive alprazolam 0.5 mg tablet RxNorm: 648588 TAKE ONE TABLET BY MOUTH TWICE A DAY , MUST LAST 30 DAYS 12/29/2013 01/27/2014 Inactive (Response to a n electronic controlled substance refill request - RxReferenceNumber: [id number]) Celebrex 200 mg capsule RxNorm: 611772 1 Capsule(s) PO QD TAKE ONE CAPSULE BY MOUTH EVERY DAY 12/29/2013 12/29/2013 Inactive Bystolic 10 mg tablet RxNorm: 093633 1 Tablet(s) PO QAM TAKE ONE TABLET BY MOUTH EVERY MORNING 12/29/2013 05/24/2014 Inactive Bystolic 10 mg tablet RxNorm: 220017 1 Tablet(s) PO QAM TAKE ONE TABLET BY MOUTH EVERY MORNING 12/29/2013 12/29/2013 Inactive Singulair 10 mg tablet RxNorm: 138249 1 Tablet(s) PO QD TAKE ONE TABLET BY MOUTH EVERY DAY 12/29/2013 05/25/2014 Inactive hydrocodone 10 mg-acetaminophen 325 mg tablet RxNorm: 304827 TAKE ONE TO TWO TABLETS BY MOUTH FOUR TIMES A DAY . MUST LAST 30 DAYS 12/29/20132013 Inactive (Response to an electronic controlled [place] bstance refill request - RxReferenceNumber: [id number]) Trazadone 75mg Tablet RxNorm: 1 Tablet(s) PO QHS as needed 03/23/2014 Inactive Trazadone 75mg Tablet RxNorm: 1 Tablet(s) PO QHS 12/24/20132014 Inactive Soma 350 mg tablet RxNorm: 818743 Tablet(s) PO TAKE ON E TABLET BY MOUTH THREE TIMES A DAY NEEDED FOR MUSCLE SPASMS. THIS MUST LAST 30 DAYS BETWEEN REFILLS. 12/10/2013 12/22/2013 Inactive (Appended: Cont rolled substance eRx refill - RxReferenceNumber: [id number]) diclofenac sodium 75 mg tablet,delayed release RxNorm: 27320 6 1 Tablet(s) PO BID for pain 12/10/2013 02/24/2014 Inactive allopurinol 300 mg tablet RxNorm: 228098 1 Tablet(s) PO QD 11/20/19 14 12/29/2013 Inactive alprazolam 0.5 mg tablet RxNorm: 471518 2 Tablet(s) PO BID 11/13/19 14 12/29/2013 Inactive prn clonidine 0.1 mg tablet RxNorm: 569958 1 Tablet(s) PO TID 11/12/2013 02/09/2014 Inactive replaces 0.2mg dose Klor-Con M20 mEq tablet,extended release RxNorm: 402521 2 Tablet(s) PO BID to use with lasix 11/12/2013 05/10/2014 Inactive Singulair 10 mg tablet RxNorm: 629723 1 Tablet(s) PO QD 11/12/2013 Inactive hydrocodone 10 mg-acetaminophen 325 mg tablet RxNorm: 724651 1-2 Tablet(s) PO QID as needed for severe pain 11/12/2013 12/28/2013 Inactive Bystolic 10 mg tablet RxNorm: 379546 1 Tablet(s) PO QAM 11/12/2013 Inactive Soma 350 mg tablet RxNorm: 184315 Tablet(s) PO TAKE ON E TABLET BY MOUTH THREE TIMES A DAY NEEDED FOR MUSCLE SPASMS. THIS MUST LAST 30 DAYS BETWEEN REFILLS. 10/13/2013 12/10/2013 Inactive (Appended: Cont rolled substance eRx refill - RxReferenceNumber: [id number]) hydrocodone 10 mg-acetaminophen 325 mg tablet RxNorm: 898787 1-2 Tablet(s) PO QID as needed for severe pain 10/03/2013 11/11/2013 Inactive diclofenac sodium 75 mg tablet,delayed release RxNorm: 34201 8 1 Tablet(s) PO BID for pain 09/11/2013 12/10/2013 Inactive alprazolam 0.5 mg tablet RxNorm: 549659 1 Tablet(s) PO BID May refill on 04/26/13 09/01/2013 10/30/2013 Inactive prn hydrocodone 10 mg-acetaminophen 325 mg tablet RxNorm: 721720 1-2 Tablet(s) PO QID as needed for severe pain 09/01/2013 10/02/2013 Inactive triamterene 75 mg-hydrochlorothiazide 50 mg tablet RxNorm: 3 30962 1 Tablet(s) PO QD 08/04/2013 08/31/2014 Inactive cyclobenzaprine 10 mg tablet RxNorm: 187813 1 Tablet(s) PO TID prn spasm 08/04/2013 08/13/2013 Inactive clonidine 0.1 mg tablet RxNorm: 013465 1 Tablet(s) PO TID 08/04/2013 11/11/2013 Inactive replaces 0.2mg dose cyclobenzaprine 10 mg tablet RxNorm: 445444 1 Tablet(s) PO TID prn spasm 07/23/2013 08/01/2013 Inactive hydrocodone 10 mg-acetaminophen 325 mg tablet RxNorm: 190546 2 1-2 Tablet(s) PO QID as needed for severe pain 06/09/2013 08/07/2013 Inactive Singulair 10 mg tablet RxNorm: 160231 1 Tablet(s) PO QD 05/29/2013 Inactive Klor-Con 8 mEq tablet,extended release RxNorm: 627010 1 Tablet( s) PO BID 05/29/2013 02/26/2014 Inactive allopurinol 300 mg tablet RxNorm: 740054 1 Tablet(s) PO QD 05/29/20 13 11/19/2013 Inactive Bystolic 10 mg tablet RxNorm: 715778 1 Tablet(s) PO QAM take one daily in the morning. 05/29/2013 11/11/2013 Inactive scopolamine 1.5 mg 72 hr Transderm Patch RxNorm: 473706 Application TD Q72H for motion sickness 05/26/2013 07/22/2013 Inactive Soma 350 mg tablet RxNorm: 595145 1 Tablet(s) PO TID as needed for spasm 05/19/2013 10/13/2013 Inactive diclofenac sodium 75 mg tablet,delayed release RxNorm: 98916 8 1 Tablet(s) PO BID for pain 05/14/2013 07/22/2013 Inactive allopurinol 300 mg tablet RxNorm: 021955 1 Tablet(s) PO QD 04/25/20 13 05/28/2013 Inactive alprazolam 0.5 mg tablet RxNorm: 483630 1 Tablet(s) PO BID May refill on 04/26/13 04/25/2013 06/23/2013 Inactive prn Celebrex 200 mg capsule RxNorm: 106928 1 Capsule(s) PO QD 04/16/2013 12/29/2013 Inactive alprazolam 0.5 mg tablet RxNorm: 308244 1 Tablet(s) PO BID May refill on 04/26/13 04/16/2013 04/24/2013 Inactive prn Soma 350 mg tablet RxNorm: 940034 1 Tablet(s) PO TID as needed for spasm 04/16/2013 No Stop Date Active Lasix 40 mg tablet RxNorm: 648141 1 Tablet(s) PO QAM s hould take potassium supplementation with this medication 04/16/2013 06/14/2013 Inactive clonidine 0.1 mg tablet RxNorm: 940987 1 Tablet(s) PO TID 04/16/2013 08/03/2013 Inactive replaces 0.2mg dose prednisone 20 mg tablet RxNorm: 529034 1 Tablet(s) PO BID 04/16/2013 04/20/2013 Inactive diclofenac sodium 75 mg tablet,delayed release RxNorm: 27130 8 1 Tablet(s) PO BID for pain 04/14/2013 05/13/2013 Inactive hydrocodone 10 mg-acetaminophen 325 mg tablet RxNorm: 724367 2 1-2 Tablet(s) PO QID as needed for severe pain 04/14/2013 No Stop Date Active Lasix 40 mg tablet RxNorm: 425417 1 Tablet(s) PO QAM s hould take potassium supplementation with this medication 03/31/2013 04/15/2013 Inactive Celebrex 200 mg capsule RxNorm: 105523 1 Capsule(s) PO QD 03/31/2013 04/15/2013 Inactive alprazolam 0.5 mg tablet RxNorm: 257253 1 Tablet(s) PO BID 03/28/20 13 04/15/2013 Inactive prn hydrocodone 10 mg-acetaminophen 325 mg tablet RxNorm: 233586 2 1-2 Tablet(s) PO QID as needed for severe pain 03/10/2013 No Stop Date Active metformin ER 500 mg 24 hr tablet,extended release RxNorm: 86 1018 1 Tablet(s) PO QD 03/06/2013 07/22/2013 Inactive clindamycin 300 mg capsule RxNorm: 739428 2 Capsule(s) PO TID 03/0503/14/2013 Inactive Zaroxolyn 2.5 mg tablet RxNorm: 063346 1 Tablet(s) PO QAM 03/05/2013 05/19/2015 Inactive amlodipine 10 mg tablet RxNorm: 860972 1 Tablet(s) PO QD 03/03/2013 0 05/25/2013 Inactive Norvasc 10 mg tablet RxNorm: 292306 1 Tablet(s) PO QD 02/28/201307/11 Inactive Celebrex 200 mg capsule RxNorm: 913619 1 Capsule(s) PO QD 02/28/2013 03/30/2013 Inactive diclofenac sodium 75 mg tablet,delayed release RxNorm: 12137 8 1 Tablet(s) PO BID for pain 02/14/2013 03/15/2013 Inactive Soma 350 mg tablet RxNorm: 678464 1 Tablet(s) PO TID as needed for spasm 02/14/2013 No Stop Date Active hydrocodone 10 mg-acetaminophen 325 mg tablet RxNorm: 264208 2 1-2 Tablet(s) PO QID as needed for severe pain 02/14/2013 No Stop Date Active Norvasc 10 mg tablet RxNorm: 310551 1 Tablet(s) PO QD 02/10/201302/09 Inactive Celebrex 200 mg capsule RxNorm: 271175 1 Capsule(s) PO QD 01/27/2013 01/26/2013 Inactive Premarin 1.25 mg tablet RxNorm: 086750 1-2 Tablet(s) PO QD 01/28/20 13 06/25/2013 Inactive alprazolam 0.5 mg tablet RxNorm: 514359 1 Tablet(s) PO BID 01/28/20 13 02/25/2013 Inactive prn amlodipine 5 mg tablet RxNorm: 663122 1 Tablet(s) PO QD 01/27/2013 Inactive Celebrex 200 mg capsule RxNorm: 623628 1 Capsule(s) PO QD 01/27/2013 02/27/2013 Inactive gabapentin 600 mg tablet RxNorm: 242130 1 Tablet(s) PO QHS 01/16/20 13 07/22/2013 Inactive Soma 350 mg tablet RxNorm: 459272 1 Tablet(s) PO TID as needed for spasm 01/15/2013 No Stop Date Active hydrocodone 10 mg-acetaminophen 325 mg tablet RxNorm: 808906 2 1-2 Tablet(s) PO QID as needed for severe pain 01/15/2013 No Stop Date Active Soma 350 mg tablet RxNorm: 658012 1 Tablet(s) PO TID as needed for spasm 01/13/2013 No Stop Date Active alprazolam 0.5 mg tablet RxNorm: 662530 1 Tablet(s) PO BID 12/31/19 13 01/26/2013 Inactive prn diclofenac sodium 75 mg tablet,delayed release RxNorm: 51579 8 1 Tablet(s) PO BID for pain 12/09/2012 01/07/2013 Inactive gabapentin 600 mg tablet RxNorm: 581232 1 Tablet(s) PO QHS 12/10/19 13 01/07/2013 Inactive hydrocodone 10 mg-acetaminophen 325 mg tablet RxNorm: 278296 2 1-2 Tablet(s) PO QID as needed for severe pain 12/02/2012 No Stop Date Active Levaquin 750 mg tablet RxNorm: 994656 1 Tablet(s) PO QD 11/21/2012 Inactive Singulair 10 mg tablet RxNorm: 092337 1 Tablet(s) PO QD 11/11/2012 Inactive clonidine 0.2 mg tablet RxNorm: 046818 1 Tablet(s) PO TID 11/11/2012 04/15/2013 Inactive alprazolam 0.5 mg tablet RxNorm: 549541 1 Tablet(s) PO BID 11/12/19 13 12/10/2012 Inactive prn Klor-Con 8 mEq tablet,extended release RxNorm: 295680 1 Tablet( s) PO BID 11/11/2012 03/04/2013 Inactive hydrocodone 10 mg-acetaminophen 325 mg tablet RxNorm: 634185 2 1-2 Tablet(s) PO QID as needed for severe pain 11/06/2012 No Stop Date Active alprazolam 0.5 mg tablet RxNorm: 957848 1 Tablet(s) PO BID 10/15/19 13 11/10/2012 Inactive prn hydrocodone-acetaminophen 10 mg-325 mg tablet RxNorm: 012216 2 1-2 Tablet(s) PO QID as needed for severe pain 10/10/2012 10/09/2012 Inactive allopurinol 300 mg tablet RxNorm: 660406 1 Tablet(s) PO QD 09/20/19 13 12/18/2012 Inactive alprazolam 0.5 mg tablet RxNorm: 552378 1 Tablet(s) PO BID 09/17/19 13 10/14/2012 Inactive prn hydrocodone-acetaminophen 10 mg-325 mg tablet RxNorm: 436840 2 1-2 Tablet(s) PO QID as needed for severe pain 08/22/2012 08/21/2012 Inactive Norvasc 10 mg tablet RxNorm: 106343 1 Tablet(s) PO QD 08/12/201201/10 Inactive Premarin 1.25 mg tablet RxNorm: 122885 1-2 Tablet(s) PO QD 07/30/20 12 12/26/2012 Inactive alprazolam 0.5 mg tablet RxNorm: 707229 1 Tablet(s) PO BID 07/29/20 12 08/27/2012 Inactive prn Klor-Con 8 mEq tablet,extended release RxNorm: 732545 1 Tablet( s) PO BID 07/29/2012 11/10/2012 Inactive hydrocodone-acetaminophen 10 mg-325 mg tablet RxNorm: 728501 2 1-2 Tablet(s) PO QID as needed for severe pain 07/29/2012 No Stop Date Active Premarin 1.25 mg tablet RxNorm: 625972 1-2 Tablet(s) PO QD 07/29/20 12 07/29/2012 Inactive clonidine 0.2 mg tablet RxNorm: 766226 1 Tablet(s) PO TID 07/29/2012 10/28/2012 Inactive ketorolac 10 mg tablet RxNorm: 103664 1 Tablet(s) PO QID prn mitul leonardche 07/18/2012 No Stop Date Active hydrocodone-acetaminophen 10 mg-325 mg tablet RxNorm: 447189 2 1-2 Tablet(s) PO QID as needed for severe pain 07/03/2012 No Stop Date Active amlodipine 5 mg tablet RxNorm: 237591 1 Tablet(s) PO QD 07/02/2012 Inactive allopurinol 300 mg tablet RxNorm: 784326 1 Tablet(s) PO QD 07/02/2009/19/2012 Inactive Celebrex 200 mg capsule RxNorm: 966537 1 Capsule(s) PO QD for j oint pain 06/26/2012 10/23/2012 Inactive diclofenac sodium 75 mg tablet,delayed release RxNorm: 87623 8 1 Tablet(s) PO BID for pain 06/19/2012 09/16/2012 Inactive hydrocodone-acetaminophen 10 mg-325 mg tablet RxNorm: 592154 2 1-2 Tablet(s) PO QID as needed for severe pain 06/10/2012 No Stop Date Active alprazolam 0.5 mg tablet RxNorm: 120969 1 Tablet(s) PO BID 06/03/20 12 07/02/2012 Inactive prn ketorolac 10 mg tablet RxNorm: 679391 1 Tablet(s) PO Q8H 05/27/2012 0 01/21/2019 Inactive as needed for headache hydrocodone-acetaminophen 10 mg-325 mg tablet RxNorm: 434817 2 1-2 Tablet(s) PO QID as needed for severe pain 05/15/2012 No Stop Date Active allopurinol 300 mg tablet RxNorm: 071715 1 Tablet(s) PO QD 05/14/2006/12/2012 Inactive allopurinol 300 mg tablet RxNorm: 751695 1 Tablet(s) PO QD 05/14/20 12 05/13/2012 Inactive amlodipine 5 mg tablet RxNorm: 692299 1 Tablet(s) PO QD 05/01/2012 Inactive amlodipine 5 mg Tab RxNorm: 221912 1 Tablet(s) PO QD 05/01/201204/30 Inactive Celebrex 200 mg capsule RxNorm: 847324 1 Capsule(s) PO QD for j oint pain 05/01/2012 06/25/2012 Inactive Singulair 10 mg tablet RxNorm: 084821 1 Tablet(s) PO QD 05/01/2012 Inactive alprazolam 0.5 mg tablet RxNorm: 501494 1 Tablet(s) PO BID 05/01/2005/30/2012 Inactive prn Celebrex 200 mg Cap RxNorm: 235385 1 Capsule(s) PO QD for joint radu n 05/01/2012 04/30/2012 Inactive hydrocodone-acetaminophen 10 mg-325 mg tablet RxNorm: 053511 2 1-2 Tablet(s) PO QID as needed for severe pain 04/19/2012 No Stop Date Active Lasix 40 mg tablet RxNorm: 719727 1 Tablet(s) PO RAZA alan ashley take potassium supplementation with this medication 04/05/2012 06/03/2012 Inactive alprazolam 0.5 mg Tab RxNorm: 599555 1 Tablet(s) PO BID 04/05/2012 Inactive prn hydrocodone-acetaminophen 10 mg-325 mg Tab RxNorm: 1169724 1-2 Tablet(s) PO QID as needed for severe pain 03/25/2012 03/24/2012 Inactive clonidine 0.2 mg Tab RxNorm: 440853 1 Tablet(s) PO TID 03/08/2012 Inactive alprazolam 0.5 mg Tab RxNorm: 467757 1 Tablet(s) PO BID 03/08/2012 Inactive prn Soma 350 mg tablet RxNorm: 246693 1 Tablet(s) PO TID for spasm 02/0903/18/2012 Inactive clonidine 0.2 mg tablet RxNorm: 957762 1 Tablet(s) PO TID 03/08/2012 07/28/2012 Inactive Celebrex 200 mg Cap RxNorm: 776470 1 Capsule(s) PO QD for joint radu n 03/01/2012 04/29/2012 Inactive amlodipine 5 mg Tab RxNorm: 850651 1 Tablet(s) PO QD 02/26/201202/24 Inactive amlodipine 5 mg Tab RxNorm: 651908 1 Tablet(s) PO QD 02/26/201204/25 Inactive Bactroban 2 % Ointment RxNorm: 746439 Application TOP QID to sores 02/23/2012 No Stop Date Active amlodipine 2.5 mg tablet RxNorm: 209256 1 Tablet(s) PO QHS 02/20/20 12 02/25/2012 Inactive doxycycline hyclate 100 mg Cap RxNorm: 9035956 1 Capsule(s) PO BID 02/20/2012 02/29/2012 Inactive hydrocodone-acetaminophen 10 mg-325 mg Tab RxNorm: 7742879 1-2 T ablet(s) PO QID 02/08/2012 No Stop Date Active alprazolam 0.5 mg Tab RxNorm: 554766 1 Tablet(s) PO BID 02/08/2012 Inactive prn Singulair 10 mg Tab RxNorm: 562633 1 Tablet(s) PO QD 02/08/201204/30 Inactive Soma 350 mg Tab RxNorm: 923387 1 Tablet(s) PO TID for spasm 012 03/07/2012 Inactive Soma 350 mg Tab RxNorm: 155356 1 Tablet(s) PO TID for spasm 012 02/05/2012 Inactive diclofenac sodium 75 mg tablet,delayed release RxNorm: 39347 8 1 Tablet(s) PO BID for pain 02/01/2012 03/18/2012 Inactive Celebrex 200 mg Cap RxNorm: 293107 1 Capsule(s) PO QD for joint radu n 01/30/2012 02/28/2012 Inactive Lasix 40 mg Tab RxNorm: 737243 1 Tablet(s) PO QAM 01/24/2012 03/18/20 12 Inactive potassium chloride ER 20 mEq tablet,extended release(part/cr yst) RxNorm: 627850 2 Tablet(s) PO BID 01/24/2012 02/22/2012 Inactive alprazolam 0.5 mg Tab RxNorm: 135759 1 Tablet(s) PO BID 01/11/2012 Inactive prn hydrocodone-acetaminophen 10 mg-325 mg Tab RxNorm: 9126692 1-2 T ablet(s) PO QID 01/11/2012 No Stop Date Active Ambien 10 mg Tab RxNorm: 358646 1 Tablet(s) PO QHS 01/11/2012 012 Inactive Klor-Con 8 mEq Tab RxNorm: 492615 1 Tablet(s) PO BID 01/11/201201/22 Inactive diclofenac sodium 75 mg Tab, Delayed Release RxNorm: 610779 1 Tablet(s) PO BID for pain 01/10/2012 01/31/2012 Inactive Ambien 10 mg Tab RxNorm: 788221 1 Tablet(s) PO QHS 12/11/2011 012 Inactive alprazolam 0.5 mg Tab RxNorm: 730832 1 Tablet(s) PO BID 12/11/2011 Inactive prn hydrocodone 10 mg-acetaminophen 325 mg tablet RxNorm: 028534 1-2 Tablet(s) PO TID 11/28/2011 No Stop Date Active as needed for pa in - Previous quantity #240, will start dosing for #180 in April 2011 per Doctor Td. Ambien 10 mg Tab RxNorm: 791465 1 Tablet(s) PO QHS 11/09/2011 012 Inactive alprazolam 0.5 mg Tab RxNorm: 090550 1 Tablet(s) PO BID 11/09/2011 Inactive prn hydrocodone-acetaminophen 10 mg-325 mg Tab RxNorm: 3099275 1-2 T ablet(s) PO TID 11/06/2011 No Stop Date Active as needed for pain - Previous quantity #240, will start dosing for #180 in April 2011 per Doctor Td. Singulair 10 mg Tab RxNorm: 238222 1 Tablet(s) PO QD 10/13/201110/12 Inactive Singulair 10 mg Tab RxNorm: 956953 1 Tablet(s) PO QD 10/13/201102/06 Inactive hydrocodone-acetaminophen 10 mg-325 mg Tab RxNorm: 7067932 1-2 T ablet(s) PO TID 10/10/2011 10/09/2011 Inactive as needed for pain - Previous quantity #240, will start dosing for #180 in April 2011 per Doctor Td. hydrocodone-acetaminophen 10 mg-325 mg Tab RxNorm: 4227438 1-2 T ablet(s) PO TID 10/09/2011 No Stop Date Active as needed for pain - Previous quantity #240, will start dosing for #180 in April 2011 per Doctor Td. Klor-Con 8 mEq Tab RxNorm: 857423 1 Tablet(s) PO BID 10/02/201101/09 Inactive triamterene 75 mg-hydrochlorothiazide 50 mg tablet RxNorm: 3 44385 1 Tablet(s) PO QD 09/14/2011 03/06/2013 Inactive Ambien 10 mg Tab RxNorm: 929500 1 Tablet(s) PO QHS 09/14/2011 012 Inactive hydrocodone-acetaminophen 10 mg-325 mg Tab RxNorm: 8329966 1-2 T ablet(s) PO TID 09/14/2011 No Stop Date Active as needed for pain - Previous quantity #240, will start dosing for #180 in April 2011 per Doctor Td. alprazolam 0.5 mg Tab RxNorm: 408797 1 Tablet(s) PO BID 09/14/2011 Inactive prn Zithromax 500 mg Tab RxNorm: 6820199 1 Tablet(s) PO QD 09/13/201106/2012 Inactive prednisone 20 mg Tab RxNorm: 853484 1 Tablet(s) PO BID 08/31/2011 Inactive Ambien 10 mg Tab RxNorm: 637668 1 Tablet(s) PO QHS 08/17/2011 011 Inactive hydrocodone-acetaminophen 10 mg-325 mg Tab RxNorm: 4790123 1-2 T ablet(s) PO TID 08/17/2011 No Stop Date Active as needed for pain - Previous quantity #240, will start dosing for #180 in April 2011 per Doctor Td. clonidine 0.2 mg Tab RxNorm: 222912 1 Tablet(s) PO TID 08/17/201112/2011 Inactive Ambien 10 mg Tab RxNorm: 092178 1 Tablet(s) PO QHS 08/17/2011 019 Inactive alprazolam 0.5 mg Tab RxNorm: 396560 1 Tablet(s) PO BID 08/17/2011 Inactive prn hydrocodone-acetaminophen 10 mg-325 mg Tab RxNorm: 0825454 1-2 T ablet(s) PO TID 08/17/2011 08/16/2011 Inactive as needed for pain - Previous quantity #240, will start dosing for #180 in April 2011 per Doctor Td. Singulair 10 mg Tab RxNorm: 397288 1 Tablet(s) PO QD 08/17/201108/16 Inactive Klor-Con 8 mEq Tab RxNorm: 956431 1 Tablet(s) PO QD 08/17/20112011 Inactive alprazolam 0.5 mg Tab RxNorm: 508991 1 Tablet(s) PO BID 07/20/2011 Inactive prn Ambien 10 mg Tab RxNorm: 490948 1 Tablet(s) PO QHS 07/20/2011 012 Inactive Singulair 10 mg Tab RxNorm: 695565 1 Tablet(s) PO QD 07/20/201107/19 Inactive Premarin 1.25 mg tablet RxNorm: 013918 2 Tablet(s) PO QD 07/20/2011 0 01/21/2019 Inactive Premarin 1.25 mg tablet RxNorm: 261648 1-2 Tablet(s) PO QD 07/20/20 11 12/16/2011 Inactive Premarin 1.25 mg Tab RxNorm: 491205 1-2 Tablet(s) PO QD 07/06/2011 Inactive alprazolam 0.5 mg Tab RxNorm: 001140 1 Tablet(s) PO BID 06/22/2011 Inactive prn alprazolam 0.5 mg Tab RxNorm: 851710 1 Tablet(s) PO BID 06/22/2011 Inactive prn Premarin 1.25 mg Tab RxNorm: 082871 1 Tablet(s) PO QD m ay do 90 day fill if desired 06/22/2011 07/05/2011 Inactive hydrocodone-acetaminophen 10 mg-325 mg Tab RxNorm: 8910678 1-2 T ablet(s) PO TID 06/22/2011 No Stop Date Active as needed for pain - Previous quantity #240, will start dosing for #180 in April 2011 per Doctor Td. clonidine 0.2 mg Tab RxNorm: 819853 1 Tablet(s) PO TID 05/25/201103/2011 Inactive triamterene-hydrochlorothiazide 75 mg-50 mg Tab RxNorm: 3108 18 1 Tablet(s) PO QD 05/25/2011 09/13/2011 Inactive alprazolam 0.5 mg Tab RxNorm: 705866 1 Tablet(s) PO BID 05/25/2011 Inactive prn hydrocodone-acetaminophen 10 mg-325 mg Tab RxNorm: 2702516 1-2 T ablet(s) PO TID 05/25/2011 No Stop Date Active as needed for pain - Previous quantity #240, will start dosing for #180 in April 2011 per Doctor Td. Robaxin-750 750 mg Tab RxNorm: 595020 2 Tablet(s) PO QHS 05/22/2011 1 Inactive prn spasm hydrocodone-acetaminophen 10 mg-325 mg Tab RxNorm: 1792307 1-2 T ablet(s) PO TID 04/26/2011 No Stop Date Active as needed for pain - Previous quantity #240, will start dosing for #180 in April 2011 per Doctor Td. alprazolam 0.5 mg Tab RxNorm: 350851 1 Tablet(s) PO BID 04/25/2011 Inactive prn Klor-Con 8 mEq Tab RxNorm: 850796 1 Tablet(s) PO QD 03/30/20112010 Inactive Klor-Con 8 mEq Tab RxNorm: 056383 1 Tablet(s) PO QD 03/29/20112010 Inactive hydrocodone-acetaminophen 10 mg-325 mg Tab RxNorm: 9291223 1-2 T ablet(s) PO TID 03/20/2011 04/25/2011 Inactive as needed for pain - Previous quantity #240, will start dosing for #180 in April 2011 per Doctor Td. alprazolam 0.5 mg Tab RxNorm: 950106 1 Tablet(s) PO BID prn 011 03/30/2011 Inactive Ambien 10 mg Tab RxNorm: 215520 1 Tablet(s) PO QHS 03/01/2011 011 Inactive cyclobenzaprine 10 mg Tab RxNorm: 981179 1 Tablet(s) PO TID 011 03/18/2012 Inactive cyclobenzaprine 10 mg Tab RxNorm: 952350 1 Tablet(s) PO TID 011 01/08/2011 Inactive cyclobenzaprine 10 mg Tab RxNorm: 602708 1 Tablet(s) PO TID 011 12/20/2010 Inactive terbinafine 250 mg Tab RxNorm: 547767 1 Tablet(s) PO QD 12/12/2010 Inactive triamterene-hydrochlorothiazide 75 mg-50 mg Tab RxNorm: 3108 18 1 Tablet(s) PO QD 12/07/2010 06/04/2011 Inactive Klor-Con 8 8 mEq Tab RxNorm: 296555 1 Tablet(s) PO QD 12/07/201001/08 Inactive Premarin 1.25 mg Tab RxNorm: 186625 2 Tablet(s) PO QD 12/07/201001/08 Inactive clonidine 0.2 mg Tab RxNorm: 079606 1 Tablet(s) PO TID 12/07/2010 Inactive hydrocodone-acetaminophen 7.5 mg-650 mg Tab RxNorm: 675754 1 Ta blet(s) PO Q4H 12/05/2010 01/21/2019 Inactive hydrocodone-acetaminophen 7.5 mg-650 mg Tab RxNorm: 830237 1 Ta blet(s) PO Q4H 10/26/2010 11/14/2010 Inactive hydrocodone-acetaminophen 7.5 mg-650 mg Tab RxNorm: 945312 1 Ta blet(s) PO Q4H 10/13/2010 10/25/2010 Inactive hydrocodone-acetaminophen 7.5 mg-650 mg Tab RxNorm: 452641 1 Ta blet(s) PO Q4H 09/15/2010 09/12/2010 Inactive alprazolam 0.5 mg Tab RxNorm: 559470 1 Tablet(s) PO BID prn 011 09/12/2010 Inactive terbinafine 250 mg Tab RxNorm: 620752 1 Tablet(s) PO QD 09/05/2010 Inactive hydrocodone-acetaminophen 7.5 mg-650 mg Tab RxNorm: 249747 1 Ta blet(s) PO Q4H 08/29/2010 09/17/2010 Inactive alprazolam 0.5 mg Tab RxNorm: 312291 1 Tablet(s) PO BID prn 010 09/27/2010 Inactive alprazolam 0.5 mg Tab RxNorm: 310449 1 Tablet(s) PO BID prn 09/06/2010 Inactive Klor-Con 8 mEq Tab RxNorm: 315870 1 Tablet(s) PO QD 08/08/20102010 Inactive hydrocodone-acetaminophen 7.5 mg-650 mg Tab RxNorm: 027091 1 Ta blet(s) PO Q4H 08/08/2010 08/27/2010 Inactive Ambien 10 mg Tab RxNorm: 172412 1 Tablet(s) PO QHS 08/08/2010 Inactive clonidine 0.2 mg Tab RxNorm: 136465 1 Tablet(s) PO TID 08/08/2010 Inactive Premarin 1.25 mg Tab RxNorm: 591266 2 Tablet(s) PO QD 08/08/201009/12 Inactive Ambien 10 mg Tab RxNorm: 053122 1 Tablet(s) PO QHS 07/18/2010 Inactive alprazolam 0.5 mg Tab RxNorm: 758338 1 Tablet(s) PO BID prn 08/07/2010 Inactive hydrocodone-acetaminophen 7.5 mg-650 mg Tab RxNorm: 768399 1 Ta blet(s) PO Q4H 07/12/2010 07/31/2010 Inactive clonidine 0.2 mg Tab RxNorm: 136358 1 Tablet(s) PO TID 06/20/2010 Inactive terbinafine 250 mg Tab RxNorm: 071803 1 Tablet(s) PO QD 05/24/2010 Inactive Clonidine 0.2 mg Tab RxNorm: 984992 1 Tablet(s) PO TID 05/24/201006/2010 Inactive Ambien 10 mg Tab RxNorm: 256917 1 Tablet(s) PO QHS 05/24/2010 010 Inactive alprazolam 0.5 mg Tab RxNorm: 183041 1 Tablet(s) PO BID 05/24/2010 Inactive Klor-Con 8 mEq Tab RxNorm: 391127 1 Tablet(s) PO QD 05/24/20102009 Inactive alprazolam 0.5 mg Tab RxNorm: 603687 2 Tablet(s) PO QD prn 05/24/20 10 07/17/2010 Inactive triamterene-hydrochlorothiazide 75 mg-50 mg Tab RxNorm: 3108 18 1 Tablet(s) PO QD 05/24/2010 11/19/2010 Inactive Ambien 10 mg Tab RxNorm: 402894 1 Tablet(s) PO QHS 05/23/2010 010 Inactive Alprazolam 0.5 mg Tab RxNorm: 054005 2 Tablet(s) PO QD prn 05/23/20 10 05/23/2010 Inactive Premarin 1.25 mg Tab RxNorm: 337707 2 Tablet(s) PO QD 05/19/201007/12 Inactive Hydrocodone-Acetaminophen 7.5 mg-650 mg Tab RxNorm: 765021 1 Ta blet(s) PO Q4H 05/19/2010 03/20/2011 Inactive Prednisone 20 mg Tab RxNorm: 986734 1 Tablet(s) PO BID 05/17/2010 Inactive Prednisone 20 mg Tab RxNorm: 517829 1 Tablet(s) PO BID 05/06/201001/2010 Inactive Premarin 1.25 mg Tab RxNorm: 061260 Tablet(s) PO 2 M-W-F, and 1 Nd-Il-Rux-Sun 05/05/2010 08/02/2010 Inactive Premarin 1.25 mg Tab RxNorm: 646406 Tablet(s) PO 2 M-W-F, and 1 Kj-Xu-Xgh-Sun 05/04/2010 05/04/2010 Inactive Premarin 1.25 mg Tab RxNorm: 554659 Tablet(s) PO 2 M-W-F, and 1 Dc-Lj-Dav-Sun 05/04/2010 05/03/2010 Inactive Prednisone 20 mg Tab RxNorm: 231924 1 Tablet(s) PO BID 04/27/2010 Inactive Alprazolam 0.5 mg Tab RxNorm: 635211 2 Tablet(s) PO QD prn 04/26/20 10 05/22/2010 Inactive Clindamycin 300 mg Cap RxNorm: 380749 2 Capsule(s) PO TID 04/05/2010 04/18/2010 Inactive Terbinafine 250 mg Tab RxNorm: 439797 1 Tablet(s) PO QD 04/04/2010 Inactive Hydrocodone-Acetaminophen 7.5 mg-650 mg Tab RxNorm: 771737 1 Ta blet(s) PO Q4H 03/30/2010 04/18/2010 Inactive Avelox 400 mg Tab RxNorm: 851368 1 Tablet(s) PO QD 03/09/2010 010 Inactive Hydrocodone-Acetaminophen 7.5 mg-650 mg Tab RxNorm: 629323 1 Ta blet(s) PO Q4H 03/08/2010 03/27/2010 Inactive Alprazolam 0.5 mg Tab RxNorm: 599226 2 Tablet(s) PO QD prn 03/08/20 10 04/25/2010 Inactive Klor-Con 8 mEq Tab RxNorm: 404104 1 Tablet(s) PO QD when takes lasi x 03/07/2010 08/03/2010 Inactive Premarin 1.25 mg Tab RxNorm: 996810 1 Tablet(s) PO QD 03/03/201003/11 Inactive Alprazolam 0.5 mg Tab RxNorm: 262572 1 Tablet(s) PO BID PRN 010 No Stop Date Active triamterene-hydrochlorothiazide 75 mg-50 mg Tab RxNorm: 3108 18 1 Tablet(s) PO QD 02/09/2010 02/03/2011 Inactive Hydrocodone-Acetaminophen 10 mg-750 mg Tab RxNorm: 742485 1 Tablet(s) PO Q4H PRN 02/09/2010 03/20/2011 Inactive Clonidine 0.2 mg Tab RxNorm: 780661 1 Tablet(s) PO TID 01/13/201009/2009 Inactive Alprazolam 0.5 mg Tab RxNorm: 580433 1 Tablet(s) PO BID PRN 010 01/12/2010 Inactive Hydrocodone-Acetaminophen 10 mg-750 mg Tab RxNorm: 910334 1 Tablet(s) PO Q4H PRN 01/13/2010 01/12/2010 Inactive ANGELIQ 1 mg-0.5 mg Tab RxNorm: 4811925 1 Tablet(s) PO QD 12/27/2009 01/23/2010 Inactive Lasix 40 mg Tab RxNorm: 787143 1 Tablet(s) PO QAM 12/14/2009 06/11/20 10 Inactive Vitamin B12 1000mcg Tablet RxNorm: 1 Tablet(s) PO QD No Start Date Active cyclobenzaprine 10 mg tablet RxNorm: 296661 1 Tablet(s) PO TID as needed DO NOT USE WITH BACLOFEN No Start Date Active Vitamin D 5,000 unit Tab RxNorm: 1 Tablet(s) PO QD No Start Date Active vitamin E (dl, acetate) 400 unit Cap RxNorm: 968202 1 Capsule(s ) PO QD No Start Date Active baclofen 10 mg tablet RxNorm: 224994 1 Tablet(s) PO TID as needed for muscle spasm No Start Date Active Benadryl 25 mg Cap RxNorm: 0055194 Capsule(s) PO PRN No Start Date Inactive amitriptyline 100 mg tablet RxNorm: 053100 1 Tablet(s) PO QHS No St art Date 11/27/2016 Inactive Zithromax Z-Dustin 250 mg tablet RxNorm: 591035 Tablet(s) PO as di rected No Start Date 07/22/2013 Inactive Klor-Con 8 mEq tablet,extended release RxNorm: 344803 1 Tablet( s) PO BID No Start Date 07/28/2012 Inactive scopolamine 1.5 mg 72 hr Transderm Patch RxNorm: 262846 Application TD Q72H for motion sickness No Start Date 05/25/2013 Inactive Klonopin 1 mg tablet RxNorm: 978602 1-2 Tablet(s) PO QHS as nee ded for sleep No Start Date 06/20/2015 Inactive Klor-Con M20 mEq tablet,extended release RxNorm: 914167 2 Tablet(s) PO BID to use with lasix No Start Date 11/11/2013 Inactive Bystolic 5 mg tablet RxNorm: 626120 1 Tablet(s) PO QD No Start Date 1 Inactive Bystolic 10 mg tablet RxNorm: 013764 1 Tablet(s) PO BID No Start Da te 07/06/2015 Inactive Premarin 1.25 mg Tab RxNorm: 967809 Tablet(s) PO 2 M-W-F, and 1 Nr-Gu-Ffh-Sun No Start Date 05/03/2010 Inactive baclofen 20 mg tablet RxNorm: 171031 1 Tablet(s) PO TID as needed for muscle spasm No Start Date 07/22/2015 Inactive hydrocodone-acetaminophen 7.5 mg-650 mg Tab RxNorm: 432300 1 Tablet(s) PO Q4H as needed for pain No Start Date 03/20/2011 Inactive albuterol sulfate 1.25 mg/3 mL Neb Solution RxNorm: 712917 1 Unit Dose INH Q4H 2boxes No Start Date 09/06/2015 Inactive Butrans 20 mcg/hour Transderm Patch RxNorm: 786827 1 TD WEEKLY apply to skin weekly after removing previous. No Start Date 07/22/2013 Inactive Medrol (Dustin) 4 mg tablets in a dose pack RxNorm: 777054 Tablet(s) PO As Directed No Start Date 07/30/2016 Inactive hydrocodone-acetaminophen 10 mg-325 mg Tab RxNorm: 5591818 1-2 Tablet(s) PO TID as needed for pain No Start Date 03/19/2011 Inactive Klonopin 1 mg tablet RxNorm: 437719 1 Tablet(s) PO QHS No Start Date 02/28/2016 Inactive honey topical RxNorm: topical No Start Date 06/16/2018 Inactive Clonidine 0.2 mg Tab RxNorm: 396739 1 Tablet(s) PO TID No Start Date 01/12/2010 Inactive ketorolac 10 mg tablet RxNorm: 440133 1 Tablet(s) PO Q8H No Start D ate 03/18/2012 Inactive as needed for headache Singulair 10 mg Tab RxNorm: 320793 1 Tablet(s) PO QD No Start Date Inactive Premarin 1.25 mg Tab RxNorm: 929609 1 Tablet(s) PO QD No Start Date 1 Inactive Flonase 50 mcg/Actuation Nasal [place] RxNorm: 6654982 1 [place] CECELIA AL BID No Start Date 03/18/2012 Inactive Terbinafine 250 mg Tab RxNorm: 416674 1 Tablet(s) PO QD No Start Da te 04/03/2010 Inactive Fexofenadine 180 mg Tab RxNorm: 3160939 1 Tablet(s) PO QD No Start Date 09/06/2015 Inactive baclofen 20 mg tablet RxNorm: 614581 1 Tablet(s) PO TID as needed N o Start Date 05/25/2014 Inactive Diovan 160 mg Tab RxNorm: 062930 1 Tablet(s) PO QD No Start Date 09/12 Inactive mupirocin 2 % topical ointment RxNorm: 131197 1 Application TOP QID No Start Date 04/25/2016 Inactive ZOFRAN ODT 4 mg Tab, Rapid Dissolve RxNorm: 249774 1 Tablet(s) PO Q4H No Start Date 03/18/2012 Inactive as needed for nausea and vomiting Alprazolam 0.5 mg Tab RxNorm: 718591 1 Tablet(s) PO BID PRN No Star t Date 01/12/2010 Inactive cyclobenzaprine 10 mg tablet RxNorm: 424751 1 Tablet(s) PO TID as needed for muscle spasm No Start Date 10/08/2017 Inactive Albuterol 0.083% Aerosol Solution RxNorm: 1 Appl ication INH Q4H Use one ampule every 4 hrs with nebulizer as needed for shortness of breath. No Start Date 10/09/2010 Inactive lorazepam 1 mg tablet RxNorm: 897719 1 1/2 Tablet(s) PO QHS No Star t Date 02/02/2016 Inactive Melatonin 3 mg Tab RxNorm: 783567 Tablet(s) PO PRN No Start Date 07/11 Inactive Medrol (Dustin) 4 mg Tabs in a Dose Pack RxNorm: 774944 Tablet(s) PO N o Start Date 11/28/2010 Inactive lorazepam 1 mg tablet RxNorm: 968202 1 Tablet(s) PO QHS as need ed for sleep No Start Date 01/30/2016 Inactive hydrocodone-acetaminophen 10 mg-325 mg Tab RxNorm: 0838146 1-2 Tablet(s) PO QID as needed for severe pain No Start Date 03/24/2012 Inactive celecoxib 200 mg capsule RxNorm: 360806 1 Capsule(s) PO BID No Star t Date 06/26/2019 Inactive amlodipine 5 mg-benazepril 20 mg capsule RxNorm: 998899 1 Capsu le(s) PO QD No Start Date 04/10/2017 Inactive Bystolic 20 mg tablet RxNorm: 209350 1/2 Tablet(s) PO QAM No Start Date 01/23/2016 Inactive Bystolic 20 mg tablet RxNorm: 916546 1 Tablet(s) PO QAM No Start Da te 04/25/2016 Inactive Ambien 10 mg Tab RxNorm: 746011 1 Tablet(s) PO QHS No Start Date 05/11 Inactive Klor-Con 8 mEq Tab RxNorm: 052081 1 Tablet(s) PO QD when takes lasix No Start Date 03/06/2010 Inactive aspirin 81 mg tablet RxNorm: 641751 1 Tablet(s) PO QD No Start Date 0 01/29/2018 Inactive hydrocodone-acetaminophen 10 mg-325 mg Tab RxNorm: 9548586 1-2 T ablet(s) PO QID No Start Date 01/10/2012 Inactive Bystolic 10 mg tablet RxNorm: 232059 1 Tablet(s) PO QAM take one daily in the morning. No Start Date 05/28/2013 Inactive nystatin 100,000 unit/mL Oral Susp RxNorm: 497027 5 Milliliter( s) PO QID No Start Date 03/18/2012 Inactive swish and spit scopolamine 1.5 mg 72 hr Transderm Patch RxNorm: 732522 1 Unit Dose TD Q72H for motion sickness No Start Date 12/23/2013 Inactive Hydrocodone-Acetaminophen 10 mg-750 mg Tab RxNorm: 857802 1 Tablet(s) PO Q4H PRN No Start Date 01/12/2010 Inactive Soma 350 mg tablet RxNorm: 966854 1 Tablet(s) PO TID as needed for spasm No Start Date 01/12/2013 Inactive Soma 350 mg Tab RxNorm: 540588 1 Tablet(s) PO TID for spasm No Star t Date 01/31/2012 Inactive Co Q-10 400 mg capsule RxNorm: 113719 1 Capsule(s) PO QD No Start D ate 01/21/2019 Inactive nystatin 100,000 unit/gram topical cream RxNorm: 667020 Applica tion TOP BID No Start Date 03/22/2015 Inactive Exforge 5 mg-160 mg Tab RxNorm: 912945 1 Tablet(s) PO QD No Start D ate 10/09/2010 Inactive Hydrocodone-Acetaminophen 7.5 mg-650 mg Tab RxNorm: 277947 1 Ta blet(s) PO Q4H No Start Date 03/07/2010 Inactive Robaxin-750 750 mg Tab RxNorm: 636252 1-2 Tablet(s) PO TID prn spasm No Start Date 05/21/2011 Inactive amlodipine 5 mg tablet RxNorm: 856466 1 Tablet(s) PO QHS No Start D ate 09/29/2015 Inactive oxycodone-acetaminophen 10 mg-325 mg tablet RxNorm: 6604164 1-2 Tablet(s) PO Q6H No Start Date 06/16/2018 Inactive Triamterene-Hydrochlorothiazide 75 mg-50 mg Tab RxNorm: 3108 18 1 Tablet(s) PO QD No Start Date 02/08/2010 Inactive Alprazolam 0.5 mg Tab RxNorm: 331943 2 Tablet(s) PO QD prn No Start Date 03/07/2010 Inactive Bystolic 20 mg tablet RxNorm: 195600 1 Tablet(s) PO QAM No Start Da te 08/17/2015 Inactive ketorolac 10 mg tablet RxNorm: 254011 1 Tablet(s) PO QID prn he adache No Start Date 07/17/2012 Inactive acyclovir 800 mg Tab RxNorm: 525353 1 Tablet(s) PO BID No Start Date 03/18/2012 Inactive duloxetine 60 mg capsule,delayed release RxNorm: 138545 1 Capsu le(s) PO QD No Start Date 09/29/2015 Inactive Norvasc 5 mg tablet RxNorm: 227344 1 Tablet(s) PO QHS No Start Date 1 10/18/2014 Inactive promethazine 25 mg tablet RxNorm: 589844 1 Tablet(s) PO Q8H use sparingly No Start Date 07/22/2013 Inactive alprazolam 0.5 mg tablet RxNorm: 367800 3 Tablet(s) PO QHS No Start Date 06/06/2015 Inactive Lunesta 3 mg tablet RxNorm: 117006 1 Tablet(s) PO QHS No Start Date 0 09/20/2017 Inactive hydrocodone-acetaminophen 10 mg-325 mg Tab RxNorm: 6432360 1-2 Tablet(s) PO TID as needed for pain No Start Date 12/10/2011 Inactive Coricidin HBP Cough & Cold 4 mg-30 mg Tab RxNorm: 2981322 Tablet (s) PO PRN No Start Date 10/09/2010 Inactive Bactroban 2 % Ointment RxNorm: 101156 Application TOP QID to so res No Start Date 02/22/2012 Inactive Flonase 50 mcg/actuation Nasal [place] RxNorm: 572664 2 [place] QHS No Start Date 03/03/2014 Inactive Medication Administered No Medication Administered data Immunizations Vaccine Codes Date Status Tetanus, Diptheria, Pertussis CVX: 115 02/27/2014 Results Observation Observation Code Item Item Code Result Date S [facility] Location COMPLETE BLOOD COUNT [id number] WBC 10.7 10e9/L 018 Unknown COMPLETE BLOOD COUNT [id number] RBC 4.59 10e12/L 2017 Unknown COMPLETE BLOOD COUNT [id number] HEMOGLOBIN 14.8 g/dL 12/11/19 18 Unknown COMPLETE BLOOD COUNT [id number] HEMATOCRIT 44.9 % 12/11/19 18 Unknown COMPLETE BLOOD COUNT [id number] MCV 97.8 fL 8 Unknown COMPLETE BLOOD COUNT 3210104 MCH 32.2 pg 8 Unknown COMPLETE BLOOD COUNT 6015807 MCHC 33.0 g/dL 8 Unknown COMPLETE BLOOD COUNT [id number] PLATELET COUNT 261 10e9/L 10/2017 Unknown COMPLETE BLOOD COUNT 4317854 Mean Plt Volume 9.5 fL 10/2017 Unknown COMPLETE BLOOD COUNT 6229681 Neut Auto 59.9 % 8 Unknown COMPLETE BLOOD COUNT 1453289 Lymph Auto 27.4 % 12/11/19 18 Unknown COMPLETE BLOOD COUNT 5758581 [place] Auto 8.2 % 8 Unknown COMPLETE BLOOD COUNT 1030050 RDW 13.3 % 8 Unknown COMPLETE BLOOD COUNT 4131591 Eos Auto 4.1 % 8 Unknown COMPLETE BLOOD COUNT 3938368 Baso Auto 0.4 % 8 Unknown COMPLETE BLOOD COUNT [id number] Neutrophil Abs 6.41 10e9/L Unknown COMPLETE BLOOD COUNT [id number] Lymphocyte Abs 2.93 10e9/L Unknown COMPLETE BLOOD COUNT [id number] Monocyte Abs 0.88 10e9/L 10/2017 Unknown COMPLETE BLOOD COUNT 1745955 Eosinophil Abs 0.44 10e9/L Unknown COMPLETE BLOOD COUNT 3775564 RDW-SD 46.2 fL 8 Unknown COMPLETE BLOOD COUNT [id number] Basophil Abs 0.04 10e9/L 10/2017 Unknown THYROID STIMULATING HORMONE 94566 TSH 4.015 uIU/mL 12/10/2017 Unknown COMPREHENSIVE METABOLIC 29297 AST 25 U/L 2017 Unknown COMPREHENSIVE METABOLIC 61432 ALT 17 U/L 2017 Unknown COMPREHENSIVE METABOLIC 50830 BUN 19 mg/dL 2017 Unknown COMPREHENSIVE METABOLIC 55598 ALBUMIN 4.0 g/dL 2017 Unknown COMPREHENSIVE METABOLIC 85223 CHLORIDE 91 mmol/L 2017 Unknown COMPREHENSIVE METABOLIC 58623 Bili Total 0.5 mg/dL 12/10 Unknown COMPREHENSIVE METABOLIC 96398 ALK PHOS 75 U/L 2017 Unknown COMPREHENSIVE METABOLIC 94157 SODIUM 136 mmol/L 12/10 Unknown COMPREHENSIVE METABOLIC 90976 CREATININE 1.05 mg/dL 10/2017 Unknown COMPREHENSIVE METABOLIC 86787 CALCIUM 8.9 mg/dL 2017 Unknown COMPREHENSIVE METABOLIC 07215 POTASSIUM 3.4 mmol/L 12/10 Unknown COMPREHENSIVE METABOLIC 89971 Total Protein 6.5 g/dL Unknown COMPREHENSIVE METABOLIC 62757 Glucose 138 mg/dL 2017 Unknown COMPREHENSIVE METABOLIC 98425 Bicarbonate 35 mmol/L 10/2017 Unknown COMPREHENSIVE METABOLIC 06441 AGAP 10 mmol/L 2017 Unknown MEAN GLUC 6053247 Calc Mean Gluc 171 mg/dL 12/10/2017 Unkn own [facility] 60984 Cholesterol 204 mg/dL 12/10/2017 Unkno wn LIPID GROUP 62206 Triglyceride 411 mg/dL 12/10/2017 Unkn own LIP[facility] GROUP 59445 HDL CHOLESTEROL 50 mg/dL 12/10/2017 U nknown LIPID GROUP 21344 Chol/HDL Ratio 4.08 ratio 12/10/2017 U nknown LIPID GROUP 78796 NON-HDL Chol 154 mg/dL 12/10/2017 Unkn own LIPID GROUP 24209 LDL Cholesterol N/A Trig >400 018 Unknown GLYCOSYLATED HEMOGLOBIN TEST 67787 Hgb A1c 65497-6 7.6 % 0 12/10/2017 Unknown FREE T4 46345 T4 Free 1.40 ng/dL 12/10/2017 Unknown GFR CALC 6401643 GFR Non Afr Amr 55 mL/min 12/10/2017 Unk nown GFR CALC 2438948 GFR Afr Amr >60 mL/min 12/10/2017 Unknow n GFR CALC 1407711 GFR Non Afr Amr 48 mL/min 06/28/2017 Unk nown GFR CALC 8109019 GFR Afr Amr 59 mL/min 06/28/2017 Unknown COMPREHENSIVE METABOLIC 50344 AST 32 U/L 2016 Unknown COMPREHENSIVE METABOLIC 70946 ALT 22 U/L 2016 Unknown COMPREHENSIVE METABOLIC 23507 BUN 23 mg/dL 2016 Unknown COMPREHENSIVE METABOLIC 79375 ALBUMIN 4.7 g/dL 2016 Unknown COMPREHENSIVE METABOLIC 53606 CHLORIDE 89 mmol/L 2016 Unknown COMPREHENSIVE METABOLIC 25416 Bili Total 0.5 mg/dL 06/28 Unknown COMPREHENSIVE METABOLIC 84573 ALK PHOS 90 U/L 2016 Unknown COMPREHENSIVE METABOLIC 94066 SODIUM 135 mmol/L 06/28 Unknown COMPREHENSIVE METABOLIC 53978 CREATININE 1.18 mg/dL 06/10 Unknown COMPREHENSIVE METABOLIC 53732 CALCIUM 9.7 mg/dL 2016 Unknown COMPREHENSIVE METABOLIC 13791 POTASSIUM 3.5 mmol/L 06/28 Unknown COMPREHENSIVE METABOLIC 10621 Total Protein 7.7 g/dL Unknown COMPREHENSIVE METABOLIC 57859 Glucose 129 mg/dL 2016 Unknown COMPREHENSIVE METABOLIC 78177 Bicarbonate 34 mmol/L 06/10 Unknown COMPREHENSIVE METABOLIC 22695 AGAP 12 mmol/L 2016 Unknown LIPID GROUP 67929 HDL TEST 64 MG/DL 08/27/2014 Unknown LIPID GROUP 23189 TRIG 222 MG/DL 08/27/2014 Unknown LIPID GROUP 05421 TEST LDL 209 MG/DL 08/27/2014 Unknown LIPID GROUP 64607 CHOL 317 MG/DL 08/27/2014 Unknown LIPID GROUP 86741 RCHOL/HDL 4.95 RATIO 08/27/2014 Unknow n LIPID GROUP 28160 NON-HDL CH 253 MG/DL 08/27/2014 Unknow n GFR CALC 9375914 GFR AA >60 ML/MIN 08/27/2014 Unknown GFR CALC 6434845 GFR NON-AA >60 ML/MIN 08/27/2014 Unknown COMPLETE BLOOD COUNT 3441403 WBC 7.0 10e9/L 08/27/20 14 Unknown COMPLETE BLOOD COUNT 7286062 RBC 4.98 10e12/L 2013 Unknown COMPLETE BLOOD COUNT 4983271 HGB 15.6 g/dL 4 Unknown COMPLETE BLOOD COUNT 9908430 HCT DET 46.5 % 4 Unknown COMPLETE BLOOD COUNT 8368544 MCV 93.4 fL 4 Unknown COMPLETE BLOOD COUNT 7535389 MCH 31.3 pg 4 Unknown COMPLETE BLOOD COUNT 6250585 MCHC 33.5 g/dL 4 Unknown COMPLETE BLOOD COUNT 3535325 PLT 309 10e9/L 08/27/20 14 Unknown COMPLETE BLOOD COUNT 0660153 MPV 9.6 fL 4 Unknown COMPLETE BLOOD COUNT 7932604 CADEN % 57.2 % 4 Unknown COMPLETE BLOOD COUNT 8195249 LY % 33.2 % 4 Unknown COMPLETE BLOOD COUNT 5677698 MON % 7.3 % 4 Unknown COMPLETE BLOOD COUNT 6188756 EOS % 2.0 % 4 Unknown COMPLETE BLOOD COUNT 5634350 BASO % 0.3 % 4 Unknown COMPLETE BLOOD COUNT 8733619 RDW 13.7 % 4 Unknown COMPLETE BLOOD COUNT 3290028 ABS CADEN 4.00 10e9/L 014 Unknown COMPLETE BLOOD COUNT 7565063 ABS LYMPH 2.32 10e9/L 014 Unknown COMPLETE BLOOD COUNT 7336016 ABS MONO 0.51 10e9/L 014 Unknown COMPLETE BLOOD COUNT 6852732 ABS EOS 0.14 10e9/L 014 Unknown COMPLETE BLOOD COUNT 7057936 ABS BASO 0.02 10e9/L 014 Unknown COMPLETE BLOOD COUNT 7582751 RDW-SD 45.1 fL 4 Unknown COMPREHENSIVE METABOLIC 62452 AST 13 U/L 2013 Unknown COMPREHENSIVE METABOLIC 35377 ALT 11 IU/L 2013 Unknown COMPREHENSIVE METABOLIC 73091 BUN 23 MG/DL 2013 Unknown COMPREHENSIVE METABOLIC 38895 ALBUMIN 4.4 GM/DL 2013 Unknown COMPREHENSIVE METABOLIC 82308 CHLORIDE 99 MMOL/L 2013 Unknown COMPREHENSIVE METABOLIC 01565 BILI TOT 0.5 MG/DL 2013 Unknown COMPREHENSIVE METABOLIC 54981 ALK PHOS 56 U/L 2013 Unknown COMPREHENSIVE METABOLIC 17529 SODIUM 138 MMOL/L 08/27 Unknown COMPREHENSIVE METABOLIC 14916 CREATININE 0.95 MG/DL 08/10 Unknown COMPREHENSIVE METABOLIC 24082 CALCIUM 9.8 MG/DL 2013 Unknown COMPREHENSIVE METABOLIC 56270 POTASSIUM 3.5 MMOL/L 08/27 Unknown COMPREHENSIVE METABOLIC 42383 PROT TOT 6.8 GM/DL 2013 Unknown COMPREHENSIVE METABOLIC 30006 Glucose 90 MG/DL 2013 Unknown COMPREHENSIVE METABOLIC 94689 BICARB 34 MMOL/L 2013 Unknown COMPREHENSIVE METABOLIC 92254 ANION GAP 5 MEQ/L 2013 Unknown LIPASE 45772 LIPASE 11 IU/L 07/21/2014 Unknown AMYLASE 12184 AMYLASE 39 IU/L 07/21/2014 Unknown HEMOGLOBIN A1C (GLYCOSYLATED) 7130295 A1C [facility] 74356-0 6.2 % 03/05/2013 Unknown THYROID STIMULATING HORMONE 27558 TSH 6.986 uIU/ML 03/05/2013 Unknown COMPLETE BLOOD COUNT 4372075 WBC 12.7 10e9/L 013 Unknown COMPLETE BLOOD COUNT 1490556 RBC 4.53 10e12/L 2012 Unknown COMPLETE BLOOD COUNT 4082203 HGB 14.7 g/dL 3 Unknown COMPLETE BLOOD COUNT 7126594 HCT DET 43.1 % 3 Unknown COMPLETE BLOOD COUNT 7865088 MCV 95.1 fL 3 Unknown COMPLETE BLOOD COUNT 6929584 MCH 32.5 pg 3 Unknown COMPLETE BLOOD COUNT 9408129 MCHC 34.1 g/dL 3 Unknown COMPLETE BLOOD COUNT 0261531 PLT 346 10e9/L 03/05/20 13 Unknown COMPLETE BLOOD COUNT 6483903 MPV 9.5 fL 3 Unknown COMPLETE BLOOD COUNT 3755807 CADEN % 67.6 % 3 Unknown COMPLETE BLOOD COUNT 0301751 LY % 22.1 % 3 Unknown COMPLETE BLOOD COUNT 6221469 MON % 6.6 % 3 Unknown COMPLETE BLOOD COUNT 6555118 EOS % 3.3 % 3 Unknown COMPLETE BLOOD COUNT 2943746 BASO % 0.4 % 3 Unknown COMPLETE BLOOD COUNT 9021253 RDW 14.0 % 3 Unknown COMPLETE BLOOD COUNT 9424048 ABS CADEN 8.59 10e9/L 013 Unknown COMPLETE BLOOD COUNT 8851367 ABS LYMPH 2.81 10e9/L 013 Unknown COMPLETE BLOOD COUNT 1248638 ABS MONO 0.84 10e9/L 013 Unknown COMPLETE BLOOD COUNT 4437892 ABS EOS 0.42 10e9/L 013 Unknown COMPLETE BLOOD COUNT 3169430 ABS BASO 0.05 10e9/L 013 Unknown COMPLETE BLOOD COUNT 9100992 RDW-SD 46.0 fL 3 Unknown FREE T4 74700 FREE T4 1.14 NG/DL 03/05/2013 Unknown COMPREHENSIVE METABOLIC 92616 AST 17 U/L 2012 Unknown COMPREHENSIVE METABOLIC 26886 ALT 12 IU/L 2012 Unknown COMPREHENSIVE METABOLIC 36704 BUN 24 MG/DL 2012 Unknown COMPREHENSIVE METABOLIC 24854 ALBUMIN 4.2 GM/DL 2012 Unknown COMPREHENSIVE METABOLIC 00605 CHLORIDE 93 MMOL/L 2012 Unknown COMPREHENSIVE METABOLIC 51260 BILI TOT 0.5 MG/DL 2012 Unknown COMPREHENSIVE METABOLIC 92002 ALK PHOS 75 U/L 2012 Unknown COMPREHENSIVE METABOLIC 64860 SODIUM 141 MMOL/L 03/05 Unknown COMPREHENSIVE METABOLIC 68966 CREATININE 1.36 MG/DL 02/09 Unknown COMPREHENSIVE METABOLIC 25570 CALCIUM 9.2 MG/DL 2012 Unknown COMPREHENSIVE METABOLIC 93184 POTASSIUM 3.1 MMOL/L 03/05 Unknown COMPREHENSIVE METABOLIC 48878 PROT TOT 6.9 GM/DL 2012 Unknown COMPREHENSIVE METABOLIC 62609 Glucose 123 MG/DL 2012 Unknown COMPREHENSIVE METABOLIC 91014 BICARB 36 MMOL/L 2012 Unknown COMPREHENSIVE METABOLIC 52651 ANION GAP 12 MEQ/L 2012 Unknown GFR CALC 7391654 GFR AA 51.0L ML/MIN 03/05/2013 Unknow n GFR CALC 6188794 GFR NON-AA 42.0L ML/MIN 03/05/2013 Unkno wn COMPREHENSIVE METABOLIC 28283 AST 14 U/L 2012 Unknown COMPREHENSIVE METABOLIC 06964 ALT 11 IU/L 2012 Unknown COMPREHENSIVE METABOLIC 78436 BUN 16 MG/DL 2012 Unknown COMPREHENSIVE METABOLIC 77547 ALBUMIN 4.2 GM/DL 2012 Unknown COMPREHENSIVE METABOLIC 14269 CHLORIDE 98 MMOL/L 2012 Unknown COMPREHENSIVE METABOLIC 33306 BILI TOT 0.4 MG/DL 2012 Unknown COMPREHENSIVE METABOLIC 66043 ALK PHOS 77 U/L 2012 Unknown COMPREHENSIVE METABOLIC 24181 SODIUM 139 MMOL/L 09/25 Unknown COMPREHENSIVE METABOLIC 30908 CREATININE 0.86 MG/DL 09/10 Unknown COMPREHENSIVE METABOLIC 84572 CALCIUM 9.5 MG/DL 2012 Unknown COMPREHENSIVE METABOLIC 39712 POTASSIUM 3.8 MMOL/L 09/25 Unknown COMPREHENSIVE METABOLIC 46271 PROT TOT 6.8 GM/DL 2012 Unknown COMPREHENSIVE METABOLIC 66463 Glucose 91 MG/DL 2012 Unknown COMPREHENSIVE METABOLIC 10200 BICARB 32 MMOL/L 2012 Unknown COMPREHENSIVE METABOLIC 14458 ANION GAP 9 MEQ/L 2012 Unknown FREE T4 30439 FREE T4 0.98 NG/DL 09/25/2012 Unknown THYROID STIMULATING HORMONE 08118 TSH 1.736 uIU/ML 09/25/2012 Unknown C-REACTIVE PROTEIN (CRP) QUANT 39916 CRP 2.3 MG/DL 09/25/2012 Unknown COMPLETE BLOOD COUNT [id number] WBC 11.9 10e9/L 013 Unknown COMPLETE BLOOD COUNT [id number] RBC 4.87 10e12/L 2012 Unknown COMPLETE BLOOD COUNT 4791750 HGB 15.1 g/dL 3 Unknown COMPLETE BLOOD COUNT 2769277 HCT DET 44.8 % 3 Unknown COMPLETE BLOOD COUNT 0260748 MCV 92.0 fL 3 Unknown COMPLETE BLOOD COUNT 0387268 MCH 31.0 pg 3 Unknown COMPLETE BLOOD COUNT 2486639 MCHC 33.7 g/dL 3 Unknown COMPLETE BLOOD COUNT 8433883 PLT 343 10e9/L 09/25/19 13 Unknown COMPLETE BLOOD COUNT 8745545 MPV 9.0 fL 3 Unknown COMPLETE BLOOD COUNT 3716595 CADEN % 68.2 % 3 Unknown COMPLETE BLOOD COUNT 1651393 LY % 22.4 % 3 Unknown COMPLETE BLOOD COUNT 0900825 MON % 6.4 % 3 Unknown COMPLETE BLOOD COUNT 9511992 EOS % 2.7 % 3 Unknown COMPLETE BLOOD COUNT 2861329 BASO % 0.3 % 3 Unknown COMPLETE BLOOD COUNT 4137374 RDW 13.8 % 3 Unknown COMPLETE BLOOD COUNT 8660002 ABS CADEN 8.12 10e9/L 013 Unknown COMPLETE BLOOD COUNT 8719458 ABS LYMPH 2.67 10e9/L 013 Unknown COMPLETE BLOOD COUNT [id number] ABS MONO 0.76 10e9/L 013 Unknown COMPLETE BLOOD COUNT 5752312 ABS EOS 0.32 10e9/L 013 Unknown COMPLETE BLOOD COUNT [id number] ABS BASO 0.04 10e9/L 013 Unknown COMPLETE BLOOD COUNT 6387638 RDW-SD 45.6 fL 3 Unknown GFR CALC 6321732 GFR AA >60 ML/MIN 09/25/2012 Unknown GFR CALC 7709576 GFR NON-AA >60 ML/MIN 09/25/2012 Unknown ERYTHROCYTE SEDIMENTATION RATE 13586 ESR 19 MM/HR 05/06/2012 Unknown VITAMIN B 12 FOLIC ACID 47598|26367 VIT B 12 922 PG/ML 04/11 Unknown VITAMIN B 12 FOLIC ACID 85716|34609 FOLIC ACID 13.6 NG/ML Unknown URIC ACID 59470 URIC ACID 7.8 MG/DL 05/06/2012 Unknown COMPLETE BLOOD COUNT 05077 WBC 11.9 10e9/L 012 Unknown COMPLETE BLOOD COUNT 33417 RBC 5.30 10e12/L 2011 Unknown COMPLETE BLOOD COUNT 82892 HGB 16.6 g/dL 2 Unknown COMPLETE BLOOD COUNT 49245 HCT DET 47.2 % 2 Unknown COMPLETE BLOOD COUNT 64738 MCV 89.1 fL 2 Unknown COMPLETE BLOOD COUNT 16025 MCH 31.3 pg 2 Unknown COMPLETE BLOOD COUNT 92945 MCHC 35.2 g/dL 2 Unknown COMPLETE BLOOD COUNT 66457 PLT 362 10e9/L 05/06/20 12 Unknown COMPLETE BLOOD COUNT 03106 MPV 9.4 fL 2 Unknown COMPLETE BLOOD COUNT 56152 CADEN % 68.2 % 2 Unknown COMPLETE BLOOD COUNT 09265 LY % 22.0 % 2 Unknown COMPLETE BLOOD COUNT 01544 MON % 6.9 % 2 Unknown COMPLETE BLOOD COUNT 69619 EOS % 2.6 % 2 Unknown COMPLETE BLOOD COUNT 98149 BASO % 0.3 % 2 Unknown COMPLETE BLOOD COUNT 09223 RDW 12.8 % 2 Unknown COMPLETE BLOOD COUNT 07251 ABS CADEN 8.12 10e9/L 012 Unknown COMPLETE BLOOD COUNT 32228 ABS LYMPH 2.62 10e9/L 012 Unknown COMPLETE BLOOD COUNT 91210 ABS MONO 0.82 10e9/L 012 Unknown COMPLETE BLOOD COUNT 26101 ABS EOS 0.31 10e9/L 012 Unknown COMPLETE BLOOD COUNT 75541 ABS BASO 0.04 10e9/L 012 Unknown COMPLETE BLOOD COUNT 91253 RDW-SD 41.5 fL 2 Unknown GFR CALC 2338632 GFR AA >60 ML/MIN 05/06/2012 Unknown GFR CALC 6882685 GFR NON-AA 58.0L ML/MIN 05/06/2012 Unkno wn FREE T4 51462 FREE T4 1.15 NG/DL 05/06/2012 Unknown THYROID STIMULATING HORMONE 82696 TSH 1.568 uIU/ML 05/06/2012 Unknown COMPREHENSIVE METABOLIC 06591 AST 20 U/L 2011 Unknown COMPREHENSIVE METABOLIC 01106 ALT 12 IU/L 2011 Unknown COMPREHENSIVE METABOLIC 99159 BUN 20 MG/DL 2011 Unknown COMPREHENSIVE METABOLIC 42868 ALBUMIN 4.5 GM/DL 2011 Unknown COMPREHENSIVE METABOLIC 03117 CHLORIDE 91 MMOL/L 2011 Unknown COMPREHENSIVE METABOLIC 14386 BILI TOT 0.4 MG/DL 2011 Unknown COMPREHENSIVE METABOLIC 43905 ALK PHOS 73 U/L 2011 Unknown COMPREHENSIVE METABOLIC 64982 SODIUM 139 MMOL/L 05/06 Unknown COMPREHENSIVE METABOLIC 73175 CREATININE 1.02 MG/DL 04/11 Unknown COMPREHENSIVE METABOLIC 88913 CALCIUM 9.7 MG/DL 2011 Unknown COMPREHENSIVE METABOLIC 87221 POTASSIUM 3.1 MMOL/L 05/06 Unknown COMPREHENSIVE METABOLIC 96403 PROT TOT 7.3 GM/DL 2011 Unknown COMPREHENSIVE METABOLIC 50601 Glucose 118 MG/DL 2011 Unknown COMPREHENSIVE METABOLIC 06367 BICARB 33 MMOL/L 2011 Unknown COMPREHENSIVE METABOLIC 80827 ANION GAP 15 MEQ/L 2011 Unknown Procedures Procedure Codes Date URINALYSIS NONAUTO W/O SCOPE CPT-4: 29865 09/30/2018 MICROALBUMIN QUANTITATIVE CPT-4: 19969 09/30/2018 CEFTRIAXONE SODIUM INJECTION CPT-4: J0696 06/19/2018 THER/PROPH/DIAG INJ SC/IM CPT-4: 99852 06/19/2018 CEFTRIAXONE SODIUM INJECTION CPT-4: J0696 06/17/2018 THER/PROPH/DIAG INJ SC/IM CPT-4: 41999 06/17/2018 THER/PROPH/DIAG INJ SC/IM CPT-4: 20684 05/16/2018 KETOROLAC TROMETHAMINE INJ CPT-4: J1885 05/16/2018 ONDANSETRON HCL INJECTION CPT-4: J2405 05/16/2018 THER/PROPH/DIAG INJ SC/IM CPT-4: 21616 05/16/2018 ROUTINE VENIPUNCTURE CPT-4: 72766 03/20/2018 COMPREHEN METABOLIC PANEL CPT-4: 33922 03/20/2018 DEXAMETHASONE SODIUM PHOS CPT-4: J1100 02/11/2018 THER/PROPH/DIAG INJ SC/IM CPT-4: 45380 02/11/2018 TRIAMCINOLONE ACET INJ NOS CPT-4: J3301 02/11/2018 CEFTRIAXONE SODIUM INJECTION CPT-4: J0696 02/01/2018 THER/PROPH/DIAG INJ SC/IM CPT-4: 88827 02/01/2018 CEFTRIAXONE SODIUM INJECTION CPT-4: J0696 01/30/2018 THER/PROPH/DIAG INJ SC/IM CPT-4: 87137 01/30/2018 ROUTINE VENIPUNCTURE CPT-4: 91860 12/10/2017 ASSAY OF FREE THYROXINE CPT-4: 06908 12/10/2017 ASSAY THYROID STIM HORMONE CPT-4: 91827 12/10/2017 COMPREHEN METABOLIC PANEL CPT-4: 82664 12/10/2017 COMPLETE CBC W/AUTO DIFF WBC CPT-4: 39915 12/10/2017 LIPID PANEL CPT-4: 06011 12/10/2017 A1C HPLC CPT-4: 71463 12/10/2017 CEFTRIAXONE SODIUM INJECTION CPT-4: J0696 12/10/2017 THER/PROPH/DIAG INJ SC/IM CPT-4: 17639 12/10/2017 CEFTRIAXONE SODIUM INJECTION CPT-4: J0696 12/07/2017 THER/PROPH/DIAG INJ SC/IM CPT-4: 97361 12/07/2017 DEXAMETHASONE SODIUM PHOS CPT-4: J1100 12/07/2017 THER/PROPH/DIAG INJ SC/IM CPT-4: 38121 12/07/2017 CEFTRIAXONE SODIUM INJECTION CPT-4: J0696 10/08/2017 THER/PROPH/DIAG INJ SC/IM CPT-4: 54245 10/08/2017 CEFTRIAXONE SODIUM INJECTION CPT-4: J0696 09/21/2017 THER/PROPH/DIAG INJ SC/IM CPT-4: 63453 09/21/2017 CEFTRIAXONE SODIUM INJECTION CPT-4: J0696 09/20/2017 THER/PROPH/DIAG INJ SC/IM CPT-4: 53095 09/20/2017 REMOVAL OF NAIL PLATE CPT-4: 98788 08/29/2017 THER/PROPH/DIAG INJ SC/IM CPT-4: 37055 08/29/2017 TRIAMCINOLONE ACET INJ NOS CPT-4: J3301 08/29/2017 CEFTRIAXONE SODIUM INJECTION CPT-4: J0696 08/29/2017 THER/PROPH/DIAG INJ SC/IM CPT-4: 87072 08/29/2017 DESTRUCT PREMALG LESION (Cryosurgery) CPT-4: 46762 ROUTINE VENIPUNCTURE CPT-4: 83462 06/27/2017 ASSAY OF FREE THYROXINE CPT-4: 54412 06/27/2017 ASSAY THYROID STIM HORMONE CPT-4: 14935 06/27/2017 COMPREHEN METABOLIC PANEL CPT-4: 72184 06/27/2017 COMPLETE CBC W/AUTO DIFF WBC CPT-4: 23046 06/27/2017 EXC TR-EXT B9+REECE 0.5 CM< CPT-4: 50956 01/24/2017 THER/PROPH/DIAG INJ SC/IM CPT-4: 57626 08/02/2016 DEXAMETHASONE SODIUM PHOS CPT-4: J1100 08/02/2016 DESTRUCT PREMALG LESION (Cryosurgery) CPT-4: 83087 EXC TR-EXT B9+REECE 0.5 CM< CPT-4: 05349 08/01/2016 AEROBIC WOUND CULTURE & STN CPT-4: 01058 07/06/2016 CEFTRIAXONE SODIUM INJECTION CPT-4: J0696 05/25/2016 THER/PROPH/DIAG INJ SC/IM CPT-4: 15001 05/25/2016 THER/PROPH/DIAG INJ SC/IM CPT-4: 39354 04/26/2016 DEXAMETHASONE SODIUM PHOS CPT-4: J1100 04/26/2016 CEFTRIAXONE SODIUM INJECTION CPT-4: J0696 04/26/2016 THER/PROPH/DIAG INJ SC/IM CPT-4: 88388 04/26/2016 THER/PROPH/DIAG INJ SC/IM CPT-4: 91213 02/09/2016 TRIAMCINOLONE ACET INJ NOS CPT-4: J3301 02/09/2016 URINALYSIS NONAUTO W/O SCOPE CPT-4: 65172 01/24/2016 URINE CULTURE/ COLONY COUNT CPT-4: 92701 01/24/2016 THER/PROPH/DIAG INJ SC/IM CPT-4: 30176 12/08/2015 TRIAMCINOLONE ACET INJ NOS CPT-4: J3301 12/08/2015 THER/PROPH/DIAG INJ SC/IM CPT-4: 70837 10/07/2015 TRIAMCINOLONE ACET INJ NOS CPT-4: J3301 10/07/2015 DESTRUCT PREMALG LESION (Cryosurgery) CPT-4: 25749 THER/PROPH/DIAG INJ SC/IM CPT-4: 11549 03/16/2015 METHYLPREDNISOLONE 40 MG INJ CPT-4: J1030 03/16/2015 DESTRUCT PREMALG LESION (Cryosurgery) CPT-4: 33223 THER/PROPH/DIAG INJ SC/IM CPT-4: 52072 09/11/2014 METHYLPREDNISOLONE 40 MG INJ CPT-4: J1030 09/11/2014 TRIAMCINOLONE ACET INJ NOS CPT-4: J3301 09/11/2014 CEFTRIAXONE SODIUM INJECTION CPT-4: J0696 09/11/2014 THER/PROPH/DIAG INJ SC/IM CPT-4: 35748 09/11/2014 ROUTINE VENIPUNCTURE CPT-4: 62099 08/27/2014 COMPREHEN METABOLIC PANEL CPT-4: 25727 08/27/2014 COMPLETE CBC W/AUTO DIFF WBC CPT-4: 86139 08/27/2014 LIPID PANEL CPT-4: 53884 08/27/2014 ROUTINE VENIPUNCTURE CPT-4: 24706 07/21/2014 ASSAY OF AMYLASE CPT-4: 37163 07/21/2014 ASSAY OF LIPASE CPT-4: 46850 07/21/2014 THER/PROPH/DIAG INJ SC/IM CPT-4: 31369 07/15/2014 TRIAMCINOLONE ACET INJ NOS CPT-4: J3301 07/15/2014 ROUTINE VENIPUNCTURE CPT-4: 32101 05/14/2014 ASSAY OF FREE THYROXINE CPT-4: 51451 05/14/2014 ASSAY THYROID STIM HORMONE CPT-4: 92887 05/14/2014 COMPREHEN METABOLIC PANEL CPT-4: 83792 05/14/2014 COMPLETE CBC W/AUTO DIFF WBC CPT-4: 43754 05/14/2014 LIPID PANEL CPT-4: 90045 05/14/2014 CEFTRIAXONE SODIUM INJECTION CPT-4: J0696 04/21/2014 THER/PROPH/DIAG INJ SC/IM CPT-4: 23022 04/21/2014 THER/PROPH/DIAG INJ SC/IM CPT-4: 34998 04/21/2014 TRIAMCINOLONE ACET INJ NOS CPT-4: J3301 04/21/2014 THER/PROPH/DIAG INJ SC/IM CPT-4: 94283 03/04/2014 METHYLPREDNISOLONE 40 MG INJ CPT-4: J1030 03/04/2014 TRIAMCINOLONE ACET INJ NOS CPT-4: J3301 03/04/2014 CEFTRIAXONE SODIUM INJECTION CPT-4: J0696 03/04/2014 THER/PROPH/DIAG INJ SC/IM CPT-4: 17821 03/04/2014 TDAP VACCINE 7 YRS/> IM CPT-4: 84922 02/27/2014 IMMUNIZATION ADMIN CPT-4: 10021 02/27/2014 DESTRUCT PREMALG LESION (Cryosurgery) CPT-4: 70155 DESTRUCT PREMALG LES 2-14 CPT-4: 87803 01/13/2014 THER/PROPH/DIAG INJ SC/IM CPT-4: 25602 10/21/2013 METHYLPREDNISOLONE 40 MG INJ CPT-4: J1030 10/21/2013 TRIAMCINOLONE ACET INJ NOS CPT-4: J3301 10/21/2013 CEFTRIAXONE SODIUM INJECTION CPT-4: J0696 08/27/2013 THER/PROPH/DIAG INJ SC/IM CPT-4: 73650 08/27/2013 THER/PROPH/DIAG INJ SC/IM CPT-4: 23784 08/27/2013 METHYLPREDNISOLONE 40 MG INJ CPT-4: J1030 08/27/2013 TRIAMCINOLONE ACET INJ NOS CPT-4: J3301 08/27/2013 THER/PROPH/DIAG INJ SC/IM CPT-4: 91687 06/23/2013 METHYLPREDNISOLONE 40 MG INJ CPT-4: J1030 06/23/2013 TRIAMCINOLONE ACET INJ NOS CPT-4: J3301 06/23/2013 THER/PROPH/DIAG INJ SC/IM CPT-4: 35787 05/26/2013 METHYLPREDNISOLONE 40 MG INJ CPT-4: J1030 05/26/2013 TRIAMCINOLONE ACET INJ NOS CPT-4: J3301 05/26/2013 ROUTINE VENIPUNCTURE CPT-4: 91514 03/05/2013 ASSAY OF FREE THYROXINE CPT-4: 71812 03/05/2013 ASSAY THYROID STIM HORMONE CPT-4: 58861 03/05/2013 COMPREHEN METABOLIC PANEL CPT-4: 57147 03/05/2013 COMPLETE CBC W/AUTO DIFF WBC CPT-4: 81180 03/05/2013 A1C GLYCOSYLATED HEMOGLOBIN TEST CPT-4: 19426 013 DRAIN/INJECT JOINT/BURSA CPT-4: 38395 12/04/2012 METHYLPREDNISOLONE 40 MG INJ CPT-4: J1030 12/04/2012 TRIAMCINOLONE ACET INJ NOS CPT-4: J3301 12/04/2012 CEFTRIAXONE SODIUM INJECTION CPT-4: J0696 11/21/2012 THER/PROPH/DIAG INJ SC/IM CPT-4: 81477 11/21/2012 THER/PROPH/DIAG INJ SC/IM CPT-4: 64157 10/14/2012 METHYLPREDNISOLONE 40 MG INJ CPT-4: J1030 10/14/2012 TRIAMCINOLONE ACET INJ NOS CPT-4: J3301 10/14/2012 URINALYSIS NONAUTO W/O SCOPE CPT-4: 56278 09/27/2012 ROUTINE VENIPUNCTURE CPT-4: 30368 09/25/2012 ASSAY OF FREE THYROXINE CPT-4: 98037 09/25/2012 ASSAY THYROID STIM HORMONE CPT-4: 53612 09/25/2012 COMPREHEN METABOLIC PANEL CPT-4: 79752 09/25/2012 COMPLETE CBC W/AUTO DIFF WBC CPT-4: 54729 09/25/2012 C-REACTIVE PROTEIN CPT-4: 66409 09/25/2012 THER/PROPH/DIAG INJ SC/IM CPT-4: 05907 08/29/2012 METHYLPREDNISOLONE 40 MG INJ CPT-4: J1030 08/29/2012 TRIAMCINOLONE ACET INJ NOS CPT-4: J3301 08/29/2012 DESTRUCT PREMALG LESION (Cryosurgery) CPT-4: 56015 THER/PROPH/DIAG INJ SC/IM CPT-4: 16041 05/06/2012 METHYLPREDNISOLONE 40 MG INJ CPT-4: J1030 05/06/2012 TRIAMCINOLONE ACET INJ NOS CPT-4: J3301 05/06/2012 VITAMIN B 12 FOLIC ACID CPT-4: 07505|90156 05/06/2012 RBC SED RATE AUTOMATED CPT-4: 78663 05/06/2012 ROUTINE VENIPUNCTURE CPT-4: 29437 05/06/2012 ASSAY OF FREE THYROXINE CPT-4: 37333 05/06/2012 ASSAY THYROID STIM HORMONE CPT-4: 75043 05/06/2012 COMPREHEN METABOLIC PANEL CPT-4: 69046 05/06/2012 COMPLETE CBC W/AUTO DIFF WBC CPT-4: 24540 05/06/2012 ASSAY OF BLOOD/URIC ACID CPT-4: 47314 05/06/2012 THER/PROPH/DIAG INJ SC/IM CPT-4: 59518 03/19/2012 KETOROLAC TROMETHAMINE INJ CPT-4: J1885 03/19/2012 KETOROLAC TROMETHAMINE INJ CPT-4: J1885 01/30/2012 THER/PROPH/DIAG INJ SC/IM CPT-4: 62183 01/30/2012 PROMETHAZINE HCL INJECTION CPT-4: J2550 01/30/2012 THER/PROPH/DIAG INJ SC/IM CPT-4: 10960 01/24/2012 METHYLPREDNISOLONE 40 MG INJ CPT-4: J1030 01/24/2012 TRIAMCINOLONE ACET INJ NOS CPT-4: J3301 01/24/2012 THER/PROPH/DIAG INJ SC/IM CPT-4: 40992 09/13/2011 KETOROLAC TROMETHAMINE INJ CPT-4: J1885 09/13/2011 THER/PROPH/DIAG INJ SC/IM CPT-4: 11839 09/13/2011 PROMETHAZINE HCL INJECTION CPT-4: J2550 09/13/2011 CEFTRIAXONE SODIUM INJECTION CPT-4: J0696 07/20/2011 THER/PROPH/DIAG INJ SC/IM CPT-4: 17746 07/20/2011 THER/PROPH/DIAG INJ SC/IM CPT-4: 65443 07/20/2011 METHYLPREDNISOLONE INJECTION CPT-4: J2930 07/20/2011 URINALYSIS NONAUTO W/O SCOPE CPT-4: 97096 05/09/2011 CEFTRIAXONE SODIUM INJECTION CPT-4: J0696 05/09/2011 THER/PROPH/DIAG INJ SC/IM CPT-4: 44793 05/09/2011 THER/PROPH/DIAG INJ SC/IM CPT-4: 13388 05/09/2011 PROMETHAZINE HCL INJECTION CPT-4: J2550 05/09/2011 HYDRATION IV INFUSION INIT CPT-4: 10979 05/09/2011 DESTRUCT PREMALG LESION (Cryosurgery) CPT-4: 07773 DESTRUCT PREMALG LES 2-14 CPT-4: 94183 07/19/2010 REMOVAL OF SKIN TAGS <W/15 CPT-4: 12530 05/30/2010 THER/PROPH/DIAG INJ SC/IM CPT-4: 35216 04/05/2010 CEFTRIAXONE SODIUM INJECTION CPT-4: J0696 04/05/2010 TRIAMCINOLONE ACET INJ NOS CPT-4: J3301 04/05/2010 METHYLPREDNISOLONE 40 MG INJ CPT-4: J1030 04/05/2010 THER/PROPH/DIAG INJ SC/IM CPT-4: 29862 04/05/2010 TRIAMCINOLONE ACET INJ NOS CPT-4: J3301 03/09/2010 METHYLPREDNISOLONE 40 MG INJ CPT-4: J1030 03/09/2010 THER/PROPH/DIAG INJ SC/IM CPT-4: 90506 03/09/2010 THER/PROPH/DIAG INJ SC/IM CPT-4: 34787 03/09/2010 CEFTRIAXONE SODIUM INJECTION CPT-4: J0696 03/09/2010 Vital Signs Date Vital 05/28/2019 Blood Pressure 1: 126/82 Code: 8480-6 BMI: 35.0 Code: 18793-3 Heart Rate 1: 88 bpm Height: 5'4" [...] 1: 128/90 Code: 8480-6 BMI: 37.2 Code: 69770-3 Heart Rate 1: 84 bpm Height: 5'4" Respiratory Rate: 20 bpm SpO2: 95% Tempera ture: 36.6 (C) / 97.8 (F) Weight: 217 lbs 08/27/2018 Blood Pressure 1: 128/88 Code: 8480-6 BMI: 38.3 Code: 97723-8 Heart Rate 1: 84 bpm Height: 5'4" [...] 1: 119/72 Code: 8480-6 BMI: 37.4 Code: 23556-5 Heart Rate 1: 82 bpm Height: 5'4" Respiratory Rate: 12 bpm SpO2: 94% Tempera ture: 35.2 (C) / 95.4 (F) Weight: 218 lbs 12/18/2017 Blood Pressure 1: 128/86 Code: 8480-6 BMI: 37.8 Code: 32562-7 Heart Rate 1: 84 bpm Height: 5'4" [...] 1: 128/82 Code: 8480-6 BMI: 35.5 Code: 44055-1 Heart Rate 1: 84 bpm Height: 5'4" [...] 1: 128/82 Code: 8480-6 BMI: 30.2 Code: 54518-1 Heart Rate 1: 80 bpm Height: 5'4" [...] 1: 128/86 Code: 8480-6 BMI: 32.8 Code: 48570-8 Heart Rate 1: 66 bpm Height: 5'4" Respiratory Rate: 18 bpm Temperature: 36 .3 (C) / 97.3 (F) Weight: 191 lbs 06/23/2013 Blood Pressure 1: 132/94 Code: 8480-6 BMI: 34.0 Code: 00477-9 Heart Rate 1: 84 bpm Height: 5'4" Respiratory Rate: 20 bpm Temperature: 36 .8 (C) / 98.2 (F) Weight: 198 lbs 05/26/2013 Blood Pressure 1: 114/80 Code: 8480-6 BMI: 35.0 Code: 41193-7 Heart Rate 1: 80 bpm Height: 5'4" Respiratory Rate: 20 bpm Temperature: 36 .4 (C) / 97.6 (F) Weight: 204 lbs 04/16/2013 Blood Pressure 1: 114/82 Code: 8480-6 BMI: 36.7 Code: 70125-7 Heart Rate 1: 84 bpm Height: 5'4" Respiratory Rate: 20 bpm Temperature: 36 .7 (C) / 98.0 (F) Weight: 214 lbs 03/05/2013 Blood Pressure 1: 136/90 Code: 8480-6 BMI: 37.1 Code: 74618-0 Heart Rate 1: 84 bpm Height: 5'4" [...] 1: 168/114 Code: 8480-6 BMI: 36.2 Code: 51018-0 Heart Rate 1: 104 bpm Height: 5'4" Respiratory Rate: 20 bpm Temperature: 36 .8 (C) / 98.2 (F) Weight: 211 lbs 11/22/2012 Blood Pressure 1: 128/90 Code: 8480-6 Heart Rate 1: 88 bpm Respiratory Rate: 20 bpm SpO2: 96% Temperature: 36.8 (C) / 98.2 (F) 11/21/2012 Blood Pressure 1: 146/100 Code: 8480-6 BMI: 35.7 Code: 09696-7 Heart Rate 1: 96 bpm Height: 5'4" [...] 1: 138/100 Code: 8480-6 BMI: 35.7 Code: 67132-2 Heart Rate 1: 96 bpm Height: 5'4" Respiratory Rate: 20 bpm Temperature: 36 .8 (C) / 98.2 (F) Weight: 208 lbs 05/06/2012 Blood Pressure 1: 154/102 Code: 8480-6 BMI: 34.7 Code: 50920-7 Heart Rate 1: 116 bpm Height: 5'4" Respiratory Rate: 20 bpm Temperature: 36 .8 (C) / 98.2 (F) Weight: 202 lbs 04/03/2012 Blood Pressure 1: 134/94 Code: 8480-6 BMI: 34.8 Code: 71850-8 Heart Rate 1: 108 bpm Height: 5'4" Respiratory Rate: 20 bpm Temperature: 36 .8 (C) / 98.2 (F) Weight: 203 lbs 03/19/2012 Blood Pressure 1: 148/106 Code: 8480-6 BMI: 35.0 Code: 45955-7 Heart Rate 1: 100 bpm Height: 5'4" Respiratory Rate: 20 bpm Temperature: 36 .6 (C) / 97.9 (F) Weight: 204 lbs 02/22/2012 Blood Pressure 1: 146/94 Code: 8480-6 He art Rate 1: 88 bpm 02/21/2012 Blood Pressure 1: 172/120 Code: 8480-6 B lood Pressure 2: 152/106 Code: 8480-6 Heart Rate 1: 116 bpm 02/20/2012 Blood Pressure 1: 160/100 Code: 8480-6 BMI: 32.0 Code: 39488-3 Heart Rate 1: 84 bpm Height: 5'7" Temperature: 36.5 (C) / 97.7 (F) Weight: 204 lbs 01/30/2012 Blood Pressure 1: 152/110 Code: 8480-6 BMI: 32.0 Code: 14175-3 Heart Rate 1: 116 bpm Height: 5'7" Respiratory Rate: 20 bpm Temperature: 37 .0 (C) / 98.6 (F) Weight: 204 lbs 01/24/2012 Blood Pressure 1: 146/100 Code: 8480-6 BMI: 32.0 Code: 50346-4 Heart Rate 1: 100 bpm Height: 5'7" Respiratory Rate: 20 bpm Temperature: 36 .7 (C) / 98.0 (F) Weight: 204 lbs 01/10/2012 Blood Pressure 1: 156/94 Code: 8480-6 BMI: 32.6 Code: 97780-3 Heart Rate 1: 72 bpm Height: 5'7" Respiratory Rate: 20 bpm Temperature: 36 .8 (C) / 98.2 (F) Weight: 208 lbs 12/11/2011 Blood Pressure 1: 146/100 Code: 8480-6 Heart Rat e 1: 116 bpm Height: 5'7" Respiratory Rate: 20 bpm Temperature: 36.9 (C) / 98.4 (F) We ight: 11/09/2011 Blood Pressure 1: 148/96 Code: 8480-6 BMI: 32.1 Code: 53656-7 Heart Rate 1: 116 bpm Height: 5'7" Respiratory Rate: 20 bpm Temperature: 36 .7 (C) / 98.0 (F) Weight: 205 lbs 09/13/2011 Blood Pressure 1: 126/88 Code: 8480-6 Heart Rate 1: 88 bpm Height: 5'7" Respiratory Rate: 20 bpm Temperature: 36.9 (C) / 98.4 (F) We ight: 08/31/2011 Blood Pressure 1: 118/82 Code: 8480-6 BMI: 32.0 Code: 50922-7 Heart Rate 1: 80 bpm Height: 5'7" Temperature: 36.4 (C) / 97.6 (F) Weight: 204 lbs 07/06/2011 Blood Pressure 1: 128/86 Code: 8480-6 BMI: 30.9 Code: 72850-2 Heart Rate 1: 92 bpm Height: 5'7" Respiratory Rate: 20 bpm Temperature: 36 .9 (C) / 98.4 (F) Weight: 197 lbs 06/06/2011 Blood Pressure 1: 112/74 Code: 8480-6 BMI: 31.0 Code: 75478-5 Heart Rate 1: 72 bpm Height: 5'7" [...] 1: 128/92 Code: 8480-6 BMI: 33.6 Code: 27389-5 Heart Rate 1: 104 bpm Height: 5'4" [...] me in for further hydrocodone refills by Lashwan Eckert headache 11/09/2011 headache 09/13/2011 with some [...] Check-up Encounters Encounter Performer Location Codes Date ([id number]) OFFICE/OUTPATIENT VISIT EST Diagnosis: Essential (primary) hypertension[ICD10: I10] Diagnosis: Fall from bed, sequela[ICD10: W06.XXXS] María Elena BRAUNGAEL Fabiola APPIAH DO [facility] CPT-4: 96165 05/28/2019 ([id number]) NURSE/OUTPATIENT VISIT EST Diagnosis: Essential (primary) hypertension[ICD10: I10] María Elena APPIAH DO [facility] CPT-4: 60864 05/19/2019 ([id number]) OFFICE/OUTPATIENT VISIT EST Diagnosis: Essential (primary) hypertension[ICD10: I10] Diagnosis: Type 2 diabetes mellitus with hyperglycemia[ICD10: E11.65] Diagnosis: Intervertebral disc disorders with radiculopathy, 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] Diagnosis: Hormone replacement therapy[ICD10: Z79.890] María Elena ELLISLINE Fabiola APPIAH DO [facility] CPT-4: 25248 01/22/2019 ([id number]) OFFICE/OUTPATIENT VISIT EST Diagnosis: Essential (primary) hypertension[ICD10: I10] Diagnosis: Type 2 diabetes mellitus with hyperglycemia[ICD10: E11.65] María Elena APPIAH [employer] [facility] CPT-4: 20242 09/30/2018 ([id number]) OFFICE/OUTPATIENT VISIT EST Diagnosis: Pain in left elbow[ICD10: M25.522] Diagnosis: Acute stress reaction[ICD10: F43.0] Diagnosis: Primary insomnia[ICD10: F51.01] Diagnosis: Abnormal weight gain[ICD10: R63.5] María Elena Seamusdawn MONTEROAPARNACIARRA JEAN Fabiola APPIAH [employer] [facility] CPT-4: 51879 08/27/2018 ([id number]) OFFICE/OUTPATIENT VISIT EST Diagnosis: Acute recurrent sinusitis, unspecified[ICD10: J01.91] Diagnosis: Follicular disorder, unspecified[ICD10: L73.9] Diagnosis: Tinea corporis[ICD10: B35.4] María Elenamarcella ELLISLINE Fabiola APPIAH [employer] [facility] CPT-4: 54127 08/09/2018 ([id number]) OFFICE/OUTPATIENT VISIT EST Diagnosis: Tinea corporis[ICD10: B35.4] Diagnosis: Anxiety disorder, unspecified[ICD10: F41.9] Diagnosis: Menopausal and female climacteric states[ICD10: N95.1] María Elena APPIAH DO [facility] CPT-4: 15666 07/22/2018 ([id number]) NURSE/OUTPATIENT VISIT EST Diagnosis: Cellulitis of right toe[ICD10: L03.031] María Elena APPIAH DO [facility] CPT-4: 81214 06/19/2018 ([id number]) OFFICE/OUTPATIENT VISIT EST Diagnosis: Cellulitis of right toe[ICD10: L03.031] Kathleen APPIAH DO [facility] CPT-4: 37215 06/17/2018 ([id number]) OFFICE/OUTPATIENT VISIT EST Diagnosis: Migraine without aura, intractable, without status migrainosus[ICD10: G43.019] Diagnosis: Zoster without complications[ICD10: B02.9] Kathleen APPIAH DO [facility] CPT-4: 80623 05/16/2018 ([id number]) OFFICE/OUTPATIENT VISIT EST Diagnosis: Cellulitis of right lower limb[ICD10: L03.115] Kathleen APPIAH DO [facility] CPT-4: 65764 03/20/2018 ([id number]) OFFICE/OUTPATIENT VISIT EST Diagnosis: Cellulitis of right lower limb[ICD10: L03.115] Kathleen APPIAH DO [facility] CPT-4: 72021 03/18/2018 ([id number]) OFFICE/OUTPATIENT VISIT EST Diagnosis: Cellulitis of right lower limb[ICD10: L03.115] Kathleen APPIAH DO [facility] CPT-4: 59688 03/15/2018 ([id number]) OFFICE/OUTPATIENT VISIT EST Diagnosis: Acute sinusitis, unspecified[ICD10: J01.90] Kathleen APPIAH DO [facility] CPT-4: 49424 02/11/2018 ([id number]) NURSE/OUTPATIENT VISIT EST Diagnosis: Otitis media, unspecified, right ear[ICD10: H66.91] María Elena APPIAH [employer] [facility] CPT-4: 23092 02/01/2018 ([id number]) OFFICE/OUTPATIENT VISIT EST Diagnosis: Acute suppurative otitis media without spontaneous rupture of ear drum, left ear[ICD10: H66.002] Diagnosis: Abnormal weight gain[ICD10: R63.5] Diagnosis: Intervertebral disc disorders with radiculopathy, 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] Kathleen APPIAH DO [facility] CPT-4: 99 214 01/30/2018 ([id number]) PREV VISIT EST AGE 40-64 Diagnosis: Encounter for general adult medical examination without abnormal findings[ICD10: Z00.00] Diagnosis: Essential (primary) hypertension[ICD10: I10] Diagnosis: Mixed hyperlipidemia[ICD10: E78.2] Diagnosis: Type 2 diabetes mellitus with hyperglycemia[ICD10: E11.65] Diagnosis: 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] María Elena APPIAH [employer] [facility] CPT-4: 97685 12/18/2017 ([id number]) OFFICE/OUTPATIENT VISIT EST Diagnosis: Cellulitis of right toe[ICD10: L03.031] Diagnosis: Mixed hyperlipidemia[ICD10: E78.2] Diagnosis: Essential (primary) hypertension[ICD10: I10] Diagnosis: Hyperglycemia, unspecified[ICD10: R73.9] Diagnosis: Nontoxic goiter, 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] María Elena APPIAH [employer] [facility] CPT-4: 36562 12/10/2017 ([id number]) OFFICE/OUTPATIENT VISIT EST Diagnosis: Cellulitis of right toe[ICD10: L03.031] Diagnosis: Acute sinusitis, unspecified[ICD10: J01.90] Kathleen APPIAH [employer] [facility] CPT-4: 00025 12/07/2017 OFFICE/OUTPATIENT VISIT EST Diagnosis: Acute maxillary sinusitis, unspecified[ICD10: J01.00] Kathleen APPIAH DO [facility] CPT-4: 65760 10/08/2017 ([id number]) OFFICE/OUTPATIENT VISIT EST Diagnosis: Cellulitis of left toe[ICD10: L03.032] María Elena APPIAH [employer] [facility] CPT-4: 84249 09/21/2017 ([id number]) OFFICE/OUTPATIENT VISIT EST Diagnosis: Insomnia, unspecified[ICD10: G47.00] Diagnosis: Major depressive disorder, single episode, unspecified[ICD10: F32.9] Diagnosis: Anxiety disorder, unspecified[ICD10: F41.9] Diagnosis: Cellulitis of left toe[ICD10: L03.032] Diagnosis: Snoring[ICD10: R06.83] Kathleen APPIAH DO [facility] CPT-4: 37431 09/20/2017 ([id number]) OFFICE/OUTPATIENT VISIT EST Diagnosis: Cellulitis of left toe[ICD10: L03.032] María Elena Waymindivictorino ORTA [employer] [facility] CPT-4: 18640 07/19/2017 OFFICE/OUTPATIENT VISIT EST Diagnosis: Chronic sinusitis, unspecified[ICD10: J32.9] Diagnosis: Generalized hyperhidrosis[ICD10: R61] Kathleen APPIAH [employer] [facility] CPT-4: 26675 06/27/2017 ([id number]) OFFICE/OUTPATIENT VISIT EST Diagnosis: Intervertebral disc disorders with radiculopathy, 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] Diagnosis: Primary insomnia[ICD10: F51.01] Diagnosis: Other fatigue[ICD10: R53.83] María Elena JUARES AlanJj MARIVEL [employer] [facility] CPT-4: 05132 04/10/2017 ([id number]) OFFICE/OUTPATIENT VISIT EST Diagnosis: Primary insomnia[ICD10: F51.01] Diagnosis: Localized edema[ICD10: R60.0] Diagnosis: 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] María Elena JUARES AlanJj TD [facility] CPT-4: 83138 12/13/2016 ([id number]) OFFICE/OUTPATIENT VISIT EST Diagnosis: Primary insomnia[ICD10: F51.01] Diagnosis: Cyanosis[ICD10: R23.0] María Elena JUARES AlanJj SEAMUSGALINA [employer] [facility] CPT-4: 10960 11/01/2016 ([id number]) PREV VISIT EST AGE 40-64 Diagnosis: Encounter for gynecological examination (general) (routine) without abnormal findings[ICD10: Z01.419] Diagnosis: Encounter for routine child health examination without abnormal findings[ICD10: Z00.129] María Elena APPIAH DO [employer] CPT-4: 84887 10/17/2016 ([id number]) OFFICE/OUTPATIENT VISIT EST Diagnosis: Other seasonal allergic rhinitis[ICD10: J30.2] María Elena APPIAH DO [employer] CPT-4: 56309 10/10/2016 ([id number]) OFFICE/OUTPATIENT VISIT EST Diagnosis: Pain in left arm[ICD10: M79.602] Diagnosis: Contact with and (suspected) exposure to potentially hazardous body fluids[ICD10: Z77.21] Diagnosis: 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, 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] Diagnosis: Unspecified open wound, right foot, sequela[ICD10: S91.301S] María Elena APPIAH DO [employer] CPT-4: 85767 09/19/2016 ([id number]) OFFICE/OUTPATIENT VISIT EST Diagnosis: Chronic sinusitis, unspecified[ICD10: J32.9] Diagnosis: Allergic rhinitis due to pollen[ICD10: J30.1] María Elena APPIAH Mc4 CPT-4: 97557 08/24/2016 ([id number]) OFFICE/OUTPATIENT VISIT EST Diagnosis: Acute bronchitis, unspecified[ICD10: J20.9] María Elena APPIAH DO [employer] CPT-4: 82180 08/16/2016 ([id number]) OFFICE/OUTPATIENT VISIT EST Diagnosis: Otitis media, unspecified, right ear[ICD10: H66.91] Diagnosis: Acute bronchitis, unspecified[ICD10: J20.9] María Elena APPIAH DO [employer] CPT-4: 26638 08/10/2016 ([id number]) OFFICE/OUTPATIENT VISIT EST Diagnosis: Acute recurrent sinusitis, unspecified[ICD10: J01.91] Diagnosis: Allergic rhinitis due to pollen[ICD10: J30.1] María Elena APPIAH DO [facility] CPT-4: 89949 08/02/2016 ([id number]) OFFICE/OUTPATIENT VISIT EST Diagnosis: Pain in unspecified joint[ICD10: M25.50] María Elena APPIAH DO [facility] CPT-4: 81941 07/27/2016 OFFICE/OUTPATIENT VISIT EST Diagnosis: 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] Diagnosis: Acute recurrent sinusitis, unspecified[ICD10: J01.91] Diagnosis: Other fatigue[ICD10: R53.83] Diagnosis: Primary insomnia[ICD10: F51.01] Diagnosis: Pain in unspecified joint[ICD10: M25.50] María Elena APPIAH DO [facility] CPT-4: 90984 07/20/2016 ([id number]) OFFICE/OUTPATIENT VISIT EST Diagnosis: Blister (nonthermal), left great toe, initial encounter[ICD10: S90.422A] Loan APPIAH [employer] [facility] CPT-4: 83199 ([id number]) OFFICE/OUTPATIENT VISIT EST Diagnosis: Acute recurrent sinusitis, unspecified[ICD10: J01.91] María Elena APPIAH DO [facility] CPT-4: 54550 05/25/2016 ([id number]) OFFICE/OUTPATIENT VISIT EST Diagnosis: Acute sinusitis, unspecified[ICD10: J01.90] María Elena APPIAH DO [facility] CPT-4: 15780 04/26/2016 ([id number]) OFFICE/OUTPATIENT VISIT EST Diagnosis: Flushing[ICD10: R23.2] Diagnosis: Primary insomnia[ICD10: F51.01] María Elena APPIAH DO [facility] CPT-4: 55091 03/02/2016 ([id number]) OFFICE/OUTPATIENT VISIT EST Diagnosis: Other seasonal allergic rhinitis[ICD10: J30.2] Loan APPIAH DO [facility] CPT-4: 34185 02/09/2016 ([id number]) OFFICE/OUTPATIENT VISIT EST Diagnosis: Primary insomnia[ICD10: F51.01] Diagnosis: Urinary tract infection, site not specified[ICD10: N39.0] María Elena APPIAH [facility] CPT-4: 15074 01/24/2016 ([id number]) OFFICE/OUTPATIENT VISIT EST Diagnosis: Other specified disorders of Eustachian tube, bilateral[ICD10: H69.83] Diagnosis: Allergic rhinitis, unspecified[ICD10: J30.9] Loan APPIAH [facility] CPT-4: 41144 12/23/2015 ([id number]) OFFICE/OUTPATIENT VISIT EST Diagnosis: Acute recurrent sinusitis, unspecified[ICD10: J01.91] Diagnosis: 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] Diagnosis: Allergic rhinitis, unspecified[ICD10: J30.9] María Elena APPIAH [facility] CPT-4: 18044 12/08/2015 ([id number]) OFFICE/OUTPATIENT VISIT EST Diagnosis: Allergic rhinitis, unspecified[ICD10: J30.9] Diagnosis: Pain in unspecified joint[ICD10: M25.50] María Elena APPIAH [facility] CPT-4: 12079 10/07/2015 ([id number]) OFFICE/OUTPATIENT VISIT EST Diagnosis: Essential (primary) hypertension[ICD10: I10] María Elena APPIAH [facility] CPT-4: 46335 10/06/2015 OFFICE/OUTPATIENT VISIT EST Diagnosis: Localized enlarged lymph nodes[ICD10: R59.0] Diagnosis: Local infection of the skin and subcutaneous tissue, unspecified[ICD10: L08.9] June Flores MARÍA ELENA APPIAH [facility] CPT- 4: 91332 09/14/2015 ([id number]) OFFICE/OUTPATIENT VISIT EST Diagnosis: Essential (primary) hypertension[ICD10: I10] Diagnosis: Actinic keratosis[ICD10: L57.0] María Elena APPIAH [facility] CPT-4: 69666 09/07/2015 ([id number]) OFFICE/OUTPATIENT VISIT EST Diagnosis: Essential (primary) hypertension[ICD10: I10] Diagnosis: Acute stress reaction[ICD10: F43.0] María Elena APPIAH DO [facility] CPT-4: 61098 08/18/2015 ([id number]) OFFICE/OUTPATIENT VISIT EST Diagnosis: Essential (primary) hypertension[ICD10: I10] María Elena APPIAH DO [facility] CPT-4: 06507 07/07/2015 ([id number]) OFFICE/OUTPATIENT VISIT EST Diagnosis: Essential (primary) hypertension[ICD10: I10] María Elena APPIAH DO [facility] CPT-4: 93168 06/24/2015 ([id number]) OFFICE/OUTPATIENT VISIT EST Diagnosis: Essential (primary) hypertension[ICD10: I10] María Elena APPIAH DO [facility] CPT-4: 67849 06/21/2015 ([id number]) OFFICE/OUTPATIENT VISIT EST Diagnosis: Essential (primary) hypertension[ICD10: I10] Diagnosis: Mixed hyperlipidemia[ICD10: E78.2] Diagnosis: Acute stress reaction[ICD10: F43.0] Diagnosis: Primary insomnia[ICD10: F51.01] María Elena APPIAH DO [facility] CPT-4: 63562 06/16/2015 ([id number]) OFFICE/OUTPATIENT VISIT EST Diagnosis: INSOMNIA NOS[ICD9: 780.52] Diagnosis: HYPERTENSION[ICD9: 401.9] Diagnosis: Stress reaction[ICD9: 308.9] María Elena APPIAH DO [facility] CPT-4: 12049 06/02/2015 ([id number]) OFFICE/OUTPATIENT VISIT EST Diagnosis: HYPERTENSION[ICD9: 401.9] Diagnosis: Stress reaction[ICD9: 308.9] María Elena APPIAH DO [facility] CPT-4: 21807 05/20/2015 ([id number]) OFFICE/OUTPATIENT VISIT EST Diagnosis: Skin lesion[ICD9: 709.9] 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] María Elena APPIAH DO [facility] CPT-4: 08723 05/10/2015 ([id number]) OFFICE/OUTPATIENT VISIT EST Diagnosis: SINUSITIS, ACUTE[ICD9: 461.9] Diagnosis: ALLERGIC RHINITIS[ICD9: 477.9] Diagnosis: DERMATITIS NOS[ICD9: 692.9] María Elena REHMAN [facility] CPT-4: 29779 03/16/2015 OFFICE/OUTPATIENT VISIT EST Diagnosis: Otitis media[ICD9: 382.9] Diagnosis: SINUSITIS, ACUTE[ICD9: 461.9] June APPIAH [facility] CPT-4: 44791 09/11/2014 ([id number]) OFFICE/OUTPATIENT VISIT EST Diagnosis: HYPERLIPIDEMIA NEC/NOS[ICD9: 272.4] María Elena APPIAH DO [facility] CPT-4: 29069 08/31/2014 ([id number]) OFFICE/OUTPATIENT VISIT EST Diagnosis: - I - HYPERTENSION[ICD9: 401.9] Diagnosis: HYPERLIPIDEMIA NEC/NOS[ICD9: 272.4] María Elena APPIAH [facility] CPT-4: 19499 08/27/2014 ([id number]) OFFICE/OUTPATIENT VISIT EST Diagnosis: ABDOMINAL PAIN[ICD9: 789.00] Diagnosis: DYSPEPSIA[ICD9: 536.8] Diagnosis: Thoracic back pain[ICD9: 724.1] María Elena APPIAH [facility] CPT-4: 58971 07/21/2014 ([id number]) OFFICE/OUTPATIENT VISIT EST Diagnosis: ALLERGIC RHINITIS[ICD9: 477.9] María Elena APPIAH DO [facility] CPT-4: 28564 07/15/2014 ([id number]) OFFICE/OUTPATIENT VISIT EST Diagnosis: EDEMA[ICD9: 782.3] Diagnosis: Chronic insomnia[ICD9: 780.52] María Elena APPIAH DO [facility] CPT-4: 19752 05/18/2014 ([id number]) OFFICE/OUTPATIENT VISIT EST Diagnosis: Thyromegaly[ICD9: 240.9] Diagnosis: - I - HYPERTENSION[ICD9: 401.9] Diagnosis: ROUTINE MEDICAL EXAM[ICD9: V70.0] Diagnosis: EDEMA[ICD9: 782.3] María Elena APPIAH [facility] CPT-4: 64916 05/14/2014 OFFICE/OUTPATIENT VISIT EST Diagnosis: BRONCHITIS, ACUTE[ICD9: 466.0] Diagnosis: SINUSITIS, ACUTE[ICD9: 461.9] María Elena APPIAH [facility] CPT-4: 03533 04/21/2014 OFFICE/OUTPATIENT VISIT EST Diagnosis: SINUSITIS, ACUTE[ICD9: 461.9] June Gabriellafatimah [facility] CPT-4: 45054 03/04/2014 ([id number]) OFFICE/OUTPATIENT VISIT EST Diagnosis: VACCINE FOR TDAP[ICD10: Z23] María Elena [facility] CPT-4: 64850 02/27/2014 ([id number]) OFFICE/OUTPATIENT VISIT EST Diagnosis: Seborrheic keratoses, inflamed[ICD9: 702.11] Diagnosis: ACTINIC KERATOSIS[ICD9: 702.0] Diagnosis: INSOMNIA NOS[ICD9: 780.52] María Elena [facility] CPT-4: 68066 01/13/2014 OFFICE/OUTPATIENT VISIT EST Diagnosis: EUSTACHIAN TUBE DYSFUNCTION[ICD9: 381.81] Diagnosis: ALLERGIC RHINITIS[ICD9: 477.9] Diagnosis: Serous otitis media[ICD9: 381.4] María Elena [facility] CPT-4: 66335 12/24/2013 ([id number]) OFFICE/OUTPATIENT VISIT EST Diagnosis: SINUSITIS, ACUTE[ICD9: 461.9] Diagnosis: ALLERGIC RHINITIS[ICD9: 477.9] Diagnosis: EUSTACHIAN TUBE DYSFUNCTION[ICD9: 381.81] María Elena [facility] CPT-4: 75098 11/12/2013 ([id number]) OFFICE/OUTPATIENT VISIT EST Diagnosis: ALLERGIC RHINITIS[ICD9: 477.9] Diagnosis: SINUSITIS, ACUTE[ICD9: 461.9] María Elena [facility] CPT-4: 22706 10/21/2013 ([id number]) OFFICE/OUTPATIENT VISIT EST Diagnosis: ASYMPTOMATIC VARICOSE VEINS[ICD9: 454.9] Diagnosis: INSOMNIA NOS[ICD9: 780.52] María Elena [facility] CPT-4: 77856 09/22/2013 OFFICE/OUTPATIENT VISIT EST Diagnosis: SINUSITIS, ACUTE[ICD9: 461.9] June Sandra [facility] CPT-4: 47976 08/27/2013 ([id number]) OFFICE/OUTPATIENT VISIT EST Diagnosis: CEPHALGIA[ICD9: 784.0] Diagnosis: CEPHALGIA, TENSION[ICD9: 307.81] 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] María Elena [facility] CPT-4: 85897 08/04/2013 ([id number]) OFFICE/OUTPATIENT VISIT EST Diagnosis: Cervicalgia[ICD9: 723.1] Diagnosis: SPASM OF MUSCLE[ICD9: 728.85] Diagnosis: CEPHALGIA, TENSION[ICD9: 307.81] [facility]ía [facility] HEALTH SERVICES CPT-4: 58132 07/23/2013 ([id number]) OFFICE/OUTPATIENT VISIT EST Diagnosis: 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] Diagnosis: ALLERGIC RHINITIS[ICD9: 477.9] María Elena APPIAH [facility] CPT-4: 96696 06/23/2013 ([id number]) OFFICE/OUTPATIENT VISIT EST Diagnosis: ALLERGIC RHINITIS[ICD9: 477.9] Diagnosis: ACUTE SEROUS OTITIS MEDIA[ICD9: 381.01] Diagnosis: 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] María Elena APPIAH [facility] CPT-4: 00932 05/26/2013 ([id number]) OFFICE/OUTPATIENT VISIT EST Diagnosis: HYPERTENSION[ICD9: 401.9] Diagnosis: EDEMA[ICD9: 782.3] Diagnosis: Serous otitis media[ICD9: 381.4] María Elena JUARES AlanJj [facility] CPT-4: 28301 04/16/2013 ([id number]) OFFICE/OUTPATIENT VISIT EST Diagnosis: SINUSITIS, ACUTE[ICD9: 461.9] Diagnosis: ALLERGIC RHINITIS[ICD9: 477.9] Diagnosis: EDEMA[ICD9: 782.3] Diagnosis: Thyromegaly[ICD9: 240.9] Diagnosis: MALAISE AND FATIGUE[ICD9: 780.79] María Elena Lopez Fabiola [facility] CPT-4: 81441 03/05/2013 ([id number]) OFFICE/OUTPATIENT VISIT EST Diagnosis: PAIN, LOWER BACK[ICD9: 724.2] Diagnosis: SPASM OF MUSCLE[ICD9: 728.85] María Elena JUARES AlanJj [facility] CPT-4: 48003 12/23/2012 OFFICE/OUTPATIENT VISIT EST Diagnosis: Low back pain[ICD9: 724.2] Lashawn Hicks [facility] CPT-4: 75680 12/16/2012 ([id number]) OFFICE/OUTPATIENT VISIT EST Diagnosis: PAIN, LOWER BACK[ICD9: 724.2] Diagnosis: SCIATICA[ICD9: 724.3] Diagnosis: Lumbar herniated disc[ICD9: 722.10] María Elena COLON AlanJj [facility] CPT-4: 39511 12/09/2012 ([id number]) OFFICE/OUTPATIENT VISIT EST Diagnosis: PAIN, LOWER BACK[ICD9: 724.2] Diagnosis: SCIATICA[ICD9: 724.3] Diagnosis: LUMBAR DISC DISPLACEMENT[ICD9: 722.10] María Elena MARIN AlanJj [facility] CPT-4: 80197 12/04/2012 OFFICE/OUTPATIENT VISIT EST Diagnosis: Pneumonia[ICD9: 486] Mary JUARES AlanJj [facility] CPT-4: 64399 11/22/2012 ([id number]) OFFICE/OUTPATIENT VISIT EST Diagnosis: PNEUMONIA, ORGANISM[ICD9: 486] Diagnosis: Exacerbation of RAD (reactive airway disease)[ICD9: 493.92] María Elenamarcella APPIAH DO [facility] CPT-4: 14537 11/21/2012 OFFICE/OUTPATIENT VISIT EST Diagnosis: HYPERTENSION[ICD9: 401.9] Diagnosis: Cephalgia[ICD9: 784.0] Lashawn APPIAH DO [facility] CPT-4: 79316 10/29/2012 ([id number]) OFFICE/OUTPATIENT VISIT EST Diagnosis: MALAISE AND FATIGUE[ICD9: 780.79] Diagnosis: ARTHRALGIA-MULTIPLE SITES[ICD9: 719.49] María Elena APPIAH DO [facility] CPT-4: 14255 10/14/2012 ([id number]) OFFICE/OUTPATIENT VISIT EST Diagnosis: URINARY FREQUENCY[ICD9: 788.41] María Elena APPIAH DO [facility] CPT-4: 03519 09/27/2012 ([id number]) OFFICE/OUTPATIENT VISIT EST Diagnosis: MALAISE AND FATIGUE[ICD9: 780.79] Diagnosis: ARTHRALGIA-MULTIPLE SITES[ICD9: 719.49] María Elena APPIAH DO [facility] CPT-4: 38954 09/25/2012 ([id number]) OFFICE/OUTPATIENT VISIT EST Diagnosis: SINUSITIS, ACUTE[ICD9: 461.9] Diagnosis: EUSTACHIAN TUBE DYSFUNCTION[ICD9: 381.81] María Elena APPIAH DO [facility] CPT-4: 42041 08/29/2012 OFFICE/OUTPATIENT VISIT EST Diagnosis: ACTINIC KERATOSIS[ICD9: 702.0] Diagnosis: Inflamed seborrheic keratosis[ICD9: 702.11] Diagnosis: Skin cancer of face[ICD9: 173.31] Diagnosis: HYPERTENSION[ICD9: 401.9] María Elena Waymindivictorino ValdesJj SEAMUS SEYMOUR DO [facility] CPT-4: 16597 08/12/2012 ([id number]) OFFICE/OUTPATIENT VISIT EST Diagnosis: ARTHRALGIA-MULTIPLE SITES[ICD9: 719.49] Diagnosis: GOUT[ICD9: 274.9] Diagnosis: HYPERTENSION[ICD9: 401.9] Diagnosis: Tachycardia[ICD9: 785.0] María Elenagael MONTEROQUELINE AlanJj FRITZ REDDY [facility] CPT-4: 64687 05/06/2012 ([id number]) OFFICE/OUTPATIENT VISIT EST Diagnosis: INSOMNIA NOS[ICD9: 780.52] María Elena Seamusdawn JUARES AlanJj KRISTYN PANDYA [facility] CPT-4: 88865 04/03/2012 ([id number]) OFFICE/OUTPATIENT VISIT EST Diagnosis: INSOMNIA NOS[ICD9: 780.52] Diagnosis: HYPERTENSION[ICD9: 401.9] Diagnosis: MIGRAINE NOS/NOT INTRCBL[ICD9: 346.90] María Elena MARIN AlanJj TD [facility] CPT-4: 46231 03/19/2012 ([id number]) OFFICE/OUTPATIENT VISIT EST Diagnosis: CELLULITIS[ICD9: 682.9] Diagnosis: Ankle pain[ICD9: 719.47] Diagnosis: HYPERTENSION[ICD9: 401.9] María Elena Seamusdawn JUARES AlanJj SEAMUS MOJICARose Mary [facility] CPT-4: 40031 02/20/2012 ([id number]) OFFICE/OUTPATIENT VISIT EST Diagnosis: MIGRAINE NOS/NOT INTRCBL[ICD9: 346.90] Diagnosis: Vomiting[ICD9: 787.03] María Elenamarcella JUARES AlanJj SEAMUSGALINA Rose Mary [facility] CPT-4: 19748 01/30/2012 ([id number]) OFFICE/OUTPATIENT VISIT EST Diagnosis: EDEMA[ICD9: 782.3] Diagnosis: HYPERTENSION[ICD9: 401.9] Diagnosis: ALLERGIC RHINITIS[ICD9: 477.9] Diagnosis: ARTHRALGIA-MULTIPLE SITES[ICD9: 719.49] María Elena REED AlanJj SEAMUSMINDIVICTORINO [facility] CPT-4: 62087 01/24/2012 ([id number]) OFFICE/OUTPATIENT VISIT EST Diagnosis: SPASM OF MUSCLE[ICD9: 728.85] Diagnosis: Thoracic back pain[ICD9: 724.1] Diagnosis: Cervical pain[ICD9: 723.1] María Elena Hicks KRISTYN PANDYA [facility] CPT-4: 06896 01/10/2012 OFFICE/OUTPATIENT VISIT EST Diagnosis: PAIN, LOWER BACK[ICD9: 724.2] Diagnosis: LUMBAR DISC DISPLACEMENT[ICD9: 722.10] María Elena MARIN AlanJj [facility] CPT-4: 08906 12/11/2011 OFFICE/OUTPATIENT VISIT EST Diagnosis: MIGRAINE NOS/NOT INTRCBL[ICD9: 346.90] Diagnosis: SINUSITIS, ACUTE[ICD9: 461.9] María Elena MONTEROQUELINE AlanJj TD [facility] CPT-4: 93649 11/09/2011 OFFICE/OUTPATIENT VISIT EST Diagnosis: MIGRAINE NOS/NOT INTRCBL[ICD9: 346.90] Diagnosis: LYMPHADENOPATHY[ICD9: 785.6] María Elena ELLISLINE AlanJj TD [facility] CPT-4: 60220 09/13/2011 OFFICE/OUTPATIENT VISIT EST Diagnosis: MALAISE AND FATIGUE[ICD9: 780.79] Diagnosis: ARTHRALGIA-MULTIPLE SITES[ICD9: 719.49] María Elena Seamusdawn MONTERO APARNAGAEL AlanJj MARIVELVICTORINO [facility] CPT-4: 55484 08/31/2011 OFFICE/OUTPATIENT VISIT EST Diagnosis: SINUSITIS, ACUTE[ICD9: 461.9] María Elena Oredawn JUARES AlanJj [facility] CPT-4: 20371 07/20/2011 OFFICE/OUTPATIENT VISIT EST Diagnosis: HYPERTENSION[ICD9: 401.9] Diagnosis: PAIN, LOWER BACK[ICD9: 724.2] Diagnosis: SPASM OF MUSCLE[ICD9: 728.85] María Elena Appiah MARÍA ELENA AlanJj TD [facility] CPT-4: 46025 07/06/2011 OFFICE/OUTPATIENT VISIT EST Diagnosis: MIGRAINE NOS/NOT INTRCBL[ICD9: 346.90] Diagnosis: HYPERTENSION[ICD9: 401.9] María Elena Seamusdawn Hicks SEAMUS DAWN [facility] CPT-4: 27072 05/22/2011 OFFICE/OUTPATIENT VISIT EST Diagnosis: SINUSITIS, ACUTE[ICD9: 461.9] Diagnosis: MIGRAINE NOS/NOT INTRCBL[ICD9: 346.90] Diagnosis: Dehydration[ICD9: 276.51] Diagnosis: Vomiting[ICD9: 787.03] María Elena Hicks [facility]AMUSGALINA [facility] CPT-4: 89235 05/09/2011 ([id number]) OFFICE/OUTPATIENT VISIT EST María Elena Orender [facility] CPT-4: 90644 02/14/2011 ([id number]) OFFICE/OUTPATIENT VISIT EST María Elena Ortaer [facility] CPT-4: 26127 02/03/2011 ([id number]) OFFICE/OUTPATIENT VISIT EST María Elenamarcella Ortaer [facility] CPT-4: 46988 01/31/2011 ([id number]) OFFICE/OUTPATIENT VISIT EST María Elenamarcella Ortaer [facility] CPT-4: 53567 01/25/2011 ([id number]) OFFICE/OUTPATIENT VISIT EST María Elenamarcella Ortaer [facility] CPT-4: 20572 01/18/2011 ([id number]) OFFICE/OUTPATIENT VISIT EST María Elena Ortaer [facility] CPT-4: 88984 11/29/2010 ([id number]) OFFICE/OUTPATIENT VISIT, EST María Elena Ortaer [facility] CPT-4: 13964 10/10/2010 ([id number]) OFFICE/OUTPATIENT VISIT, EST María Elenamarcella Ortaer [facility] CPT-4: 98679 06/07/2010 ([id number]) OFFICE/OUTPATIENT VISIT, EST María Elena Ortaer [facility] CPT-4: 54619 04/27/2010 ([id number]) OFFICE/OUTPATIENT VISIT, EST María Elena MONTERO [facility] CPT-4: 58491 04/05/2010 ([id number]) OFFICE/OUTPATIENT VISIT, EST María Elenamarcella Ortaer [facility] CPT-4: 20966 03/09/2010 ([id number]) OFFICE/OUTPATIENT VISIT, EST María Elenamarcella Ortaer [facility] CPT-4: 19192 03/03/2010 ([id number]) OFFICE/OUTPATIENT VISIT, EST María Elena Ortaer [facility] CPT-4: 09625 01/17/2010 ([id number]) PREV VISIT, EST, AGE 40-64 María Elena MONTEROMICHAEL ValdesJj APPIAH DO [facility] CPT-4: 71515 12/27/2009 Plan of Care Planned Activity Notes Codes Status Date Appointment: María Elena Appiahtel: [facility] [place] Won't have the new insurance till [...] W06.XXXS 05/28/2019 Appointment: María Elena Appiah WPtel: [address] [place], [place] [phone] [place] FOLLOW UP 05/28/2019 Appointment: María Elena Appiah WPtel: [address] [place], [place] [phone] [place] BP CHECK 05/19/2019 Visit Diagnosis Plan: [...] Z79.890 01/22/2019 Appointment: María Elena Appiah WPtel: [address] [place], [place] [phone] [place] FOLLOW UP 01/22/2019 Patient Education: estradiol- [employer] Coupon [id number] [email or web address]://[email or web address]/resources/[email or web address] Completed 01/22/2019 Appointment: María Elena Appiah WPtel: [address] [place], [place] [phone] [place] CANCELED 01/20/2019 Appointment: María Elena Appiah WPtel: [address] [place], [place] [phone] [place] LM NO SHOW 01/06/2019 Appointment: María Elena Appiah WPtel: [address] [place], [place] [phone] [place] CANCELED 10/17/2018 Appointment: María Elena Appiah WPtel: [address] [place], [place] [address] [place] BP CHECK 10/09/2018 Visit Diagnosis Plan: [...] I10 09/30/2018 Appointment: María Elena Appiah WPtel: [address] [place], [place] [phone] [place] FOLLOW UP 09/30/2018 Visit Diagnosis Plan: [...] F51.01 08/27/2018 Appointment: María Elena Appiah WPtel: [address] [place] [address] ACUTE ILLNESS 08/27/2018 Appointment: María Elena Appiah WPtel: [address] [place] [address] [place] Patient stated she went out to [...] Tyle... 08/09/2018 Appointment: María Elena Appiah WPtel: [address] [place] [address] ACUTE ILLNESS 08/09/2018 Appointment: María Elena Appiah WPtel: [address] [place] [address] NO SHOW 08/08/2018 Visit Diagnosis Plan: Anxiety [...] 07/22/2018 Appointment: María Elena Appiah WPtel: [phone] [facility] ACUTE ILLNESS 07/22/2018 Appointment: María Elena Appiah WPtel: [phone] [facility] [place] INJECTION 06/19/2018 Patient Education: Patient Medication [...] ICD-10 : L03.031 06/17/2018 Appointment: Kathleen Zuniga [address] [place] [address] ACUTE ILLNESS 06/17/2018 Patient Education: Patient Medication [...] ICD-10 : B02.9 05/16/2018 Appointment: Kathleen Zuniga [address] [place] [address] ACUTE ILLNESS 05/16/2018 Patient Education: Patient Medication [...] : L03.115 03/20/2018 Appointment: Kathleen Zuniga [address] [phone] FOLLOW UP 03/20/2018 Patient Education: Patient Medication [...] : L03.115 03/18/2018 Appointment: Kathleen Zuniga [address] [place], [place] [address] FOLLOW UP 03/18/2018 Patient Education: Patient Medication [...] : L03.115 03/15/2018 Appointment: Kathleen Zuniga [address] [phone] ACUTE ILLNESS 03/15/2018 Patient Education: Patient Medication [...] : J01.90 02/11/2018 Appointment: Kathleen Zuniga [address] [place] [address] ACUTE ILLNESS 02/11/2018 Patient Education: Patient Medication Summary Completed 02/11/2018 Appointment: María Elena Appiah WPtel: [phone] [place] [address] [place] INJECTION 02/01/2018 Patient Education: Patient Medication [...] 722.10 ICD-10 : M51.16 01/30/2018 Appointment: Kathleen Zuniag Rose MaryJj [address] [place] [address] ACUTE ILLNESS 01/30/2018 Patient Education: Patient Medication [...] E11.65 12/18/2017 Appointment: María Elena Appiah WPtel: [facility]4 [facility] Annual Well Visit 12/18/2017 Patient Education: Patient Medication Summary Completed 12/18/2017 Care Plan: Referral Order SNOMED-CT : [id number] Pending 12/18/2017 Appointment: María Elena Appiah WPtel: [facility] [place] INJECTION 12/10/2017 Patient Education: Patient [...] ICD-10 : L03.031 12/07/2017 Appointment: Kathleen Zuniga [address] [place], [place] [phone] ACUTE ILLNESS 12/07/2017 Patient Education: Patient Medication [...] : J01.00 10/08/2017 Appointment: Kathleen Zuniga 504 [facility] ACUTE ILLNESS 10/08/2017 Patient Education: Patient Medication Summary Completed 10/08/2017 Appointment: María Elena Appiah WPtel: [phone] [id number] [place] INJECTION 09/21/2017 Patient Education: Patient Medication [...] : R06.83 09/20/2017 Appointment: Kathleen Zuniga 504 [facility] ACUTE ILLNESS 09/20/2017 Patient Education: Patient [...] ICD-10 : L60.0 08/29/2017 Appointment: Kathleen Zuniga [address] [place] [address] OFFICE SURGERY 08/29/2017 Patient Education: Patient Medication Summary Completed 08/29/2017 Visit Diagnosis Plan: Actinic keratosis Discussion: Cr yotherapy as above ICD-9 : 702.0 ICD-10 : L57.0 08/01/2017 Appointment: María Elena Appiah WPtel: [address] [place] [address] OFFICE SURGERY 08/01/2017 Patient Education: Patient Medication Summary Completed 08/01/2017 Appointment: María Elena Appiah WPtel: [address] [place] [address] PATIENT THOUGHT APPOINTMENT WAS TOMORROW 07/26/17 CALLED 15 MINUTES BEFORE APPT TO SAY SHE DIDN'T HAVE ANYONE TO COVER HER BUSINESS AND WOULD NOT MAKE IT NO SHOW 07/25/2017 Visit Diagnosis Plan: Cellulitis of left toe Discussio n: Clindamycin and notify if worsening or persistis ICD-9 : 681.10 ICD-10 : L03.032 07/19/2017 Appointment: María Elena Appiah WPtel: [address] [place] [address] MEDICATION REVIEW 07/19/2017 Patient Education: Patient Medication Summary Completed 07/19/2017 Appointment: María Elena Appiah WPtel: [address] [place] [address] CANCELED 07/04/2017 Visit Diagnosis Plan: Generalized hyperhidrosis Discus ian: CBC, CMP, TSH, free T4 ordered to assess. will review labs. ICD-9 : 780.8 ICD-10 : R61 06/27/2017 Visit Diagnosis Plan: Chronic sinusitis, unspecified D iscussion: Referral sent to dr. albarado in [place] per patient request. patient has been treated multiple times for sinus infections with no recovery. patient was seen by dr sanchez in the past with no interventions. patient has deviated septum which may be affecting her sinuses. 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, including hip Discussion: Shave removal of above lesio n--sent to pathology ICD-9 : 216.7 ICD-10 : D23.72 01/24/2017 Appointment: [facility]ía [facility] [phone] [facility] [facility]/23 confirmed ~ OFFICE SURGERY 01/24/2017 Patient Education: Patient Medication Summary Completed 01/24/2017 Appointment: Loan Sánchez [address] [place], [place] [id number] 01/09 rescheduled~sl RESCHEDULED 01/15/2017 Visit Diagnosis Plan: [...] 12/13/2016 Appointment: María Elena Appiah WPtel: [address] [place] [phone] 12/12 confirmed ~ MEDICATION REVIEW 12/13/2016 Patient Education: Patient Medication Summary Completed 12/13/2016 Appointment: María Elena Appiah WPtel: [address] [place], [place] [phone] [place] rescheduled for 12/13/16 at 11am RESCHEDULED 0 12/06/2016 Appointment: María Elena Appiah WPtel: [address] [place], [place] [phone] [place] CANCELED 11/23/2016 Patient Education: Patient Medication [...] F51.01 11/01/2016 Appointment: María Elena Appiah WPtel: [address] [place], [place] [phone] [place] 10/31 lm `sl 11/01 lm`sl MEDICATION REVIEW 017 Patient Education: Patient Medication Summary Completed 11/01/2016 Referral: Canelo Overton WPtel: [phone] [id number] [place] Referral Initiated 10/30/2016 Visit Diagnosis Plan: [...] 10/17/2016 Appointment: María Elena Appiah WPtel: [address] [place], [place] [phone] 10/16 confirmed ~sl PAP 10/17/2016 Patient Education: Patient Medication Summary Completed 10/17/2016 Care Plan: MAMMOGRAM SCREENING LOINC : 2 6347-5 Pending 10/17/2016 Visit Diagnosis Plan: Other seasonal allergic rhinitis Discussion: Decadron/Garamycin Nasal [place] Mix Too soon for steroid Retry zyrtec 10mg daily ICD-9 : 477.9 ICD-10 : J30.2 10/10/2016 Appointment: María Elena Appiah WPtel: [address] [place], [place] [phone] [place] FOLLOW UP 10/10/2016 Patient Education: Patient Medication Summary Completed 10/10/2016 Appointment: María Elena Appiah WPtel: [address] [place], [place] [id number] [place] 10/02 reschedule `sl RESCHEDULED 10/02/2016 Visit Plan: See surgery for removal of n ew left arm lesion and right foot lesion Lyrica to use next month for left arm paresthesias Continue current meds Discussed sunscreen/sunblock combo 09/19/2016 Appointment: María Elena Appiah WPtel: [address] [place], [place] [phone] 09/18 confirmed ~sl FOLLOW UP 09/19/2016 Patient Education: Patient Medication Summary Completed 09/19/2016 Patient Education: Patient Medication Summary Completed 09/18/2016 Care Plan: MAMMOGRAM BOTH BREASTS LOINC : 73831-2 Pending 09/18/2016 Visit Plan: Discussed that needs [...] sinuses 08/24/2016 Appointment: María Elena Appiah WPtel: [address] [place] [address] ACUTE ILLNESS 08/24/2016 Patient Education: Patient Medication Summary Completed 08/24/2016 Patient Education: Patient Medication Summary Completed 08/23/2016 Care Plan: MAMMOGRAM SCREENING LOINC : 2 6347-5 Pending 08/23/2016 Visit Plan: Finish doxycycline Add Breo 100/25 1 p BID for 2 weeks If not improving within next 2 days will get CXR 08/16/2016 Appointment: María Elena Appiah WPtel: [address] [place], [place] [phone] ACUTE ILLNESS 08/16/2016 Patient Education: Patient Medication Summary Completed 08/16/2016 Visit Plan: Supportive care. Rest, Fluid s, Tylenol/Motrin prn fever or bodyaches. Notify if worsening symptoms. Doxycyline and Prednisone 08/10/2016 Appointment: María Elena Appiah WPtel: [address] [place], [place] [phone] 08/09 lm`sl....confirmed-sp FOLLOW UP 09/2015 Patient Education: Patient Medication Summary Completed 08/10/2016 Visit Plan: Saline nasal flushes prn. Ty lenol/Motrin prn headache. Notify if persists/symptoms worsening. Dexamethasone 8mg IM today May use coricedan and mucinex 08/02/2016 Appointment: María Elena Appiah WPtel: [address] [place] [address] ACUTE ILLNESS 08/02/2016 Patient Education: Patient Medication Summary Completed 08/02/2016 Visit Plan: Cryotherapy as above and lef t forearm lesion removal as above with 5-0 punch biopsy and sent to path Return in 10 days for suture removal 08/01/2016 Appointment: María Elena Appiah WPtel: [address] [place], [place] [phone] 07/31 confirmed`~ OFFICE SURGERY 08/01/2016 Patient Education: Patient Medication Summary Completed 08/01/2016 Visit Plan: Stop clindamycin Check CBC, CMP, ESR now/STAT 07/27/2016 Appointment: María Elena Appiah WPtel: [address] [place] [address] ACUTE ILLNESS 07/27/2016 Patient Education: Patient Medication Summary Completed 07/27/2016 Visit Plan: Update lab and check ABIs to start with Will likely need cardiology evaluation to rule out PVD Clindamycin for 10 days Daily yogurt or probiotic Will return for removal of left arm lesions 07/20/2016 Appointment: María Elena Appiah WPtel: [address] [place], [place] [phone] ACUTE ILLNESS 07/20/2016 Patient Education: Patient Medication Summary Completed 07/20/2016 Patient Education: Patient Medication Summary Completed 07/20/2016 Care Plan: MAMMOGRAM BOTH BREASTS LOINC : 29687-5 Pending 07/20/2016 Care Plan: US EXAM CHEST LOINC : 74969-5 Pending 07/20/2016 Visit Plan: Wound culture collected from left great toe Appearance is somewhat staph like Rx as above Wound cleanser and skin care reviewed May need to add oral antibiotic if sores do not heal or continue to reoccur 07/06/2016 Appointment: Loan Sánchez [address] [place] [address] ACUTE ILLNESS 07/06/2016 Patient Education: Patient Medication Summary Completed 07/06/2016 Appointment: María Elena Appiah WPtel: [address] [place] [address] [place] INJECTION 05/25/2016 Patient Education: Patient Medication Summary Completed 05/25/2016 Visit Plan: Saline nasal flushes prn. Ty lenol/Motrin prn headache. Notify if persists/symptoms worsening. Dexamethasone and Rocephin given 04/26/2016 Appointment: María Elena Appiah WPtel: [address] [place] [address] ACUTE ILLNESS 04/26/2016 Patient Education: Patient Medication Summary Completed 04/26/2016 Visit Plan: Check CBC, CMP, TSH, FreeT4, HbA1C, estradiol, lipids in AM 03/02/2016 Appointment: María Elena Appiah WPtel: [address] [place] [address] 03/01 lm~sl ACUTE ILLNESS 03/02/2016 Patient Education: Patient Medication Summary Completed 03/02/2016 Visit Plan: Exam is nearly normal Needs to be taking daily antihistamine Would prefer to use oral steroids instead of shot but patient insist that oral steroids cause horrible headaches for her Will given kenalog IM instead 02/09/2016 Appointment: Loan Sánchez [address] [place] [address] ACUTE ILLNESS 02/09/2016 Patient Education: Patient Medication Summary Completed 02/09/2016 Visit Plan: Culture urine Macrobid DC xa nax Trial of Ativan 1mg q HS 01/24/2016 Appointment: María Elena Appiah WPtel: [address] [place] [address] ACUTE ILLNESS 01/24/2016 Patient Education: Patient Medication Summary Completed 01/24/2016 Visit Plan: No steroid or rocephin injec tion warranted Can have oral prednisone Continue current home regimen Needs to follow up with Dr Sanchez if problems persist 12/23/2015 Appointment: Loan Sánchez [address] [place], [place] [phone] ACUTE ILLNESS 12/23/2015 Patient Education: Patient Medication Summary Completed 12/23/2015 Visit Plan: Saline nasal flushes prn. Ty lenol/Motrin prn headache. Notify if persists/symptoms worsening. Kenalog 40mg IM today 12/08/2015 Appointment: María Elena Appiah WPtel: [address] [place] [address] 12/06 confirmed~ ACUTE ILLNESS 12/08/2015 Patient Education: Patient Medication Summary Completed 12/08/2015 Appointment: María Elena Appiah WPtel: [address] [place] [address] ACUTE ILLNESS 11/18/2015 Patient Education: Patient Medication Summary Completed 10/11/2015 Appointment: María Elena Appiah WPtel: [address] [place] [address] [place] INJECTION 10/07/2015 Patient Education: Patient Medication Summary Completed 10/07/2015 Visit Plan: Check renal arterial doppler s and ECHO Change amlodopine to lotrel 5/20mg q HS Will need stress test as well Check CMP, uric acid, ESR 10/06/2015 Appointment: María Elena Appiah WPtel: [address] [place] [address] ACUTE ILLNESS 10/06/2015 Patient Education: Patient Medication Summary Completed 10/06/2015 Patient Education: [facility] - Saving [employer] - Amlodipine Besylate - 18-64 - Dynamic Portal ID Completed 10/06/2015 Appointment: María Elena Appiah WPtel: [address] [place] [address] FOLLOW UP 09/22/2015 Visit Plan: Cephalexin 500 mg PO bid Mery ly topical Mupirocin to lesions on left lateral neck and face Follow-up in one week. Sooner if symptoms worsen 09/14/2015 Appointment: June Flores WPtel: [address] [place] [address] ACUTE ILLNESS 09/14/2015 Patient Education: Patient Medication Summary Completed 09/14/2015 Visit Plan: Change bystolic to bedtime d osing and amlodopine to morning dosing Cryotherapy as above to AKs 09/07/2015 Appointment: María Elena Appiah WPtel: [address] [place] [address] 09/06 appointment made and confirmed ~sl FOLLOW UP 09/07/2015 Patient Education: Patient Medication Summary Completed 09/07/2015 Visit Plan: Increase bystolic back to 20 mg daily but will split and take 10mg in AM and 10mg in PM Stress Reducers 08/18/2015 Appointment: María Elena Appiah WPtel: [address] [place] [address] 08/17/15 appt confirmed cn ACUTE ILLNESS 08/18 Patient Education: Patient Medication Summary Completed 08/18/2015 Appointment: María Elena Appiah WPtel: [address] [place] [address] BP CHECK 07/07/2015 Patient Education: Patient Medication Summary Completed 07/07/2015 Appointment: María Elena Appiah WPtel: [address] [place] [address] BP CHECK 06/24/2015 Patient Education: Patient Medication Summary Completed 06/24/2015 Appointment: María Elena Appiah WPtel: [address] [place] [address] BP CHECK 06/21/2015 Patient Education: Patient Medication Summary Completed 06/21/2015 Visit Plan: Lab discussed Continue curre nt meds and lifestyle modification Recheck lab in 6mos 06/16/2015 Appointment: María Elena Appiah WPtel: [address] [place] [address] 06/15 confirmed FOLLOW UP 06/16/2015 Patient Education: Patient Medication Summary Completed 06/16/2015 Patient Education: Patient Medication Summary Completed 06/15/2015 Visit Plan: Increase cymbalta to 60mg q HS Keep clonidine at current dose Recheck 2weeks Change xanax to klonopin 06/02/2015 Appointment: María Elena Appiah WPtel: [address] [place] [address] 06/02 FOLLOW UP 06/02/2015 Patient Education: Patient Medication Summary Completed 06/02/2015 Appointment: María Elena Appiah WPtel: [address] [place] [address] ACUTE ILLNESS 05/24/2015 Visit Plan: Increase clonidine to 0.2mg q HS Add cymbalta 30mg q HS Recheck 2weeks Stress Reducers Check fasting lab Discussed sleep study 05/20/2015 Appointment: María Elena Appiah WPtel: [address] [place] [address] ACUTE ILLNESS 05/20/2015 Patient Education: Patient Medication Summary Completed 05/20/2015 Patient Education: [facility] - Saving [employer] - Cymbalta - 18-64 - Dynamic Portal ID Completed 05/20/2015 Appointment: María Elena Appiah WPtel: [address] [place] [address] BP CHECK 05/19/2015 Patient Education: Patient Medication Summary Completed 05/19/2015 Visit Plan: Topical Bactroban alternatin g with topical betamethasone Recheck 2weeks 05/10/2015 Appointment: María Elena Appiah WPtel: [address] [place] [address] 05/07 vm cn...05/07 appt confirmed OFFICE SURGER Y 05/10/2015 Patient Education: Patient Medication Summary Completed 05/10/2015 Referral: Patrick Chandler WPtel: [place] [address] Referral Initiated 05/04/2015 Visit Plan: Saline nasal flushes prn. Ty lenol/Motrin prn headache. Notify if persists/symptoms worsening. Depomedrol 40mg IM today 03/16/2015 Appointment: María Elena Appiah WPtel: [address] [place] [address] ACUTE ILLNESS 03/16/2015 Patient Education: Patient Medication Summary Completed 03/16/2015 Appointment: María Elena Appiah WPtel: [address] [place] [address] ER Follow UP 03/09/2015 Visit Plan: Cryotherapy to lesions as ab ove 10/27/2014 Appointment: María Elena Appiah WPtel: [address] [place] [address] OFFICE SURGERY 10/27/2014 Patient Education: Patient Medication Summary Completed 10/27/2014 Appointment: June Flores WPtel: [address] [place] [address] ACUTE ILLNESS 09/11/2014 Patient Education: Patient Medication Summary Completed 09/11/2014 Visit Plan: Lab discussed Lipitor 10mg d aily Coenzyme Q-10 400mg daily Vitamin D3 5000u daily Recheck lipids with LFTs in 3mos then fwup 08/31/2014 Appointment: María Elena Appiah WPtel: [address] [place] [address] 08/28 voicemail FOLLOW UP 08/31/2014 Patient Education: Patient Medication Summary Completed 08/31/2014 Appointment: María Elena Appiah WPtel: [address] [place] [address] US LAB 08/27/2014 Appointment: María Elena Appiah WPtel: [address] [place] [address] US LAB 08/27/2014 Patient Education: Patient Medication Summary Completed 08/27/2014 Appointment: María Elena Appiah WPtel: [address] [place] [address] ACUTE ILLNESS 07/23/2014 Appointment: María Elena Appiah WPtel: [address] [place], [place] [phone] ACUTE ILLNESS 07/21/2014 Patient Education: Patient Medication Summary Completed 07/21/2014 Visit Plan: Kenalog 40mg IM today Contin ue narendra and jazir Add Flonase 07/15/2014 Appointment: María Elena Appiah WPtel: [address] [place], [place] [phone] ACUTE ILLNESS 07/15/2014 Appointment: María Elena Appiah WPtel: [address] [place], [place] [phone] ACUTE ILLNESS 07/15/2014 Patient Education: Patient Medication Summary Completed 07/15/2014 Visit Plan: Will do metolazone 2.5mg prn with 6 potassium and see if causes as severe cramping Trial of of seroquel XR 50mg q PM with evening meal and let us know how works 05/18/2014 Appointment: María Elena Appiah WPtel: [address] [place], [place] [phone] 05/15 left message FOLLOW UP 05/18/2014 Patient Education: Patient Medication Summary Completed 05/18/2014 Appointment: María Elena Appiah WPtel: [address] [place], [place] [phone] LAB 05/14/2014 Patient Education: Patient Medication Summary Completed 05/14/2014 Appointment: María Elena Appiah WPtel: [address] [place], [place] [phone] [place] INJECTION 04/22/2014 Visit Plan: Rocephin and Kenalog today a nd finish abx given from urgent care 04/21/2014 Appointment: María Elena Appiah WPtel: [address] [place] [address] [place] INJECTION 04/21/2014 Patient Education: Patient Medication Summary Completed 04/21/2014 Appointment: June Flores WPtel: [address] [place] [address] ACUTE ILLNESS 03/04/2014 Patient Education: Patient Medication Summary Completed 03/04/2014 Appointment: María Elena Appiah WPtel: [address] [place] [address] INJECTION 02/27/2014 Patient Education: Patient Medication Summary Completed 02/27/2014 Visit Plan: Cryotherapy as above to all lesions Patient wants to try no meds for insomnia for a while and see how goes 01/13/2014 Appointment: María Elena Appiah WPtel: [address] [place] [address] OFFICE SURGERY 01/13/2014 Patient Education: Patient Medication Summary Completed 01/13/2014 Visit Plan: Stop Melatonin Stop Soma Tri al of trazadone 75mg q HS See ENT for possible tubes as has had chronic ETD and serous otitis media with numerous steroids 12/24/2013 Appointment: María Elena Appiah WPtel: [address] [place] [address] ACUTE ILLNESS 12/24/2013 Patient Education: Patient Medication Summary Completed 12/24/2013 Visit Plan: Saline nasal flushes prn. Ty lenol/Motrin prn headache. Notify if persists/symptoms worsening. 11/12/2013 Appointment: María Elena Appiah WPtel: [address] [place] [address] ACUTE ILLNESS 11/12/2013 Patient Education: Patient Medication Summary Completed 11/12/2013 Appointment: María Elena Appiah WPtel: [address] [place] [address] ACUTE ILLNESS 10/21/2013 Patient Education: Patient Medication Summary Completed 10/21/2013 Visit Plan: Sleep hygiene and sleep rout ine Melatonin 10mg q HS Support stockings and observe 09/22/2013 Appointment: María Elena Appiah WPtel: [address] [place] [address] ACUTE ILLNESS 09/22/2013 Patient Education: Patient Medication Summary Completed 09/22/2013 Appointment: June Flores WPtel: [address] [place] [address] ACUTE ILLNESS 08/27/2013 Patient Education: Patient Medication Summary Completed 08/27/2013 Visit Plan: Proceed with CT scan of head /neck Proceed with occipital nerve injections Butrans 20mcg patch weekly until can get into see Dr. Mcdonough for injections 08/04/2013 Appointment: María Elena Appiah WPtel: [address] [place] [address] FOLLOW UP 08/04/2013 Patient Education: Patient Medication Summary Completed 08/04/2013 Visit Plan: OMT done Daily neck stretche s, moist heat Increase Celebrex to 200mg BID Add flexeril 07/23/2013 Appointment: María Elena Appiah WPtel: [address] [place] [address] 07/22 voicemail FOLLOW UP 07/23/2013 Patient Education: Patient Medication Summary Completed 07/23/2013 Appointment: María Elena Appiah WPtel: [address] [place] [address] ACUTE ILLNESS 06/23/2013 Patient Education: Patient Medication Summary Completed 06/23/2013 Appointment: María Elena Appiah WPtel: [address] [place] [address] ACUTE ILLNESS 05/26/2013 Patient Education: Patient Medication Summary Completed 05/26/2013 Visit Plan: Decrease clonidine to 0.1mg TID If BP remains stable consider decreasing amlodopine Prednisone for 5 days BP check in 1mo 04/16/2013 Appointment: María Elena Appiah WPtel: [address] [place] [address] 04/14 pt called and confirmed appt FOLLOW UP 04/16/2013 Patient Education: Patient Medication Summary Completed 04/16/2013 Appointment: María Elena Appiah WPtel: [address] [place] [address] ACUTE ILLNESS 03/05/2013 Patient Education: Patient Medication Summary Completed 03/05/2013 Visit Plan: Pt has MARIA ELENA on with Dr. Mcdonough Continue Butrans patch Refill Hydrocodone early tomorrow 12/23/2012 Appointment: María Elena Appiah WPtel: [address] [place] [address] FOLLOW UP 12/23/2012 Patient Education: Patient Medication Summary Completed 12/23/2012 Appointment: Lashawn Eckert WPtel: [address] [place] [address] ACUTE ILLNESS 12/16/2012 Patient Education: Patient Medication Summary Completed 12/16/2012 Visit Plan: Proceed with updated MRI of LS spine Continue gabapentin and add soma and diclofenac Will likely need to go for another epidural 12/09/2012 Appointment: María Elena Appiah WPtel: [address] [place] [address] ACUTE ILLNESS 12/09/2012 Patient Education: Patient Medication Summary Completed 12/09/2012 Visit Plan: Injection as above Finish me drol dose pack Chiropracter this afternoon 12/04/2012 Appointment: María Elena Appiah WPtel: [address] [place] [address] ACUTE ILLNESS 12/04/2012 Patient Education: Patient Medication Summary Completed 12/04/2012 Appointment: Mary Tillman WPtel: [address] [place] [address] FOLLOW UP 11/22/2012 Patient Education: Patient Medication Summary Completed 11/22/2012 Appointment: María Elena Appiah WPtel: [address] [place] [address] ACUTE ILLNESS 11/21/2012 Patient Education: Patient Medication Summary Completed 11/21/2012 Appointment: María Elena Appiah WPtel: [address] [place] [address] BP CHECK 11/07/2012 Patient Education: Patient Medication [...] BP re-check. 10/29/2012 Appointment: Lashawn Eckert WPtel: [address] [place] [address] ACUTE ILLNESS 10/29/2012 Patient Education: Patient Medication Summary Completed 10/29/2012 Appointment: María Elena Appiah WPtel: [address] [place] [address] ACUTE ILLNESS 10/14/2012 Patient Education: Patient Medication Summary Completed 10/14/2012 Appointment: María Elena Appiah WPtel: [address] [place] [address] 09/27/2012 Patient Education: Patient Medication Summary Completed 09/27/2012 Appointment: María Elena Appiah WPtel: [address] [place] [address] ACUTE ILLNESS 09/25/2012 Patient Education: Patient Medication Summary Completed 09/25/2012 Appointment: María Elena Appiah WPtel: [address] [place] [address] BP CHECK 09/24/2012 Appointment: María Elena Appiah WPtel: [address] [place] [address] ACUTE ILLNESS 08/29/2012 Patient Education: Patient Medication Summary Completed 08/29/2012 Visit Plan: Cryotherapy as above See Karlos m for right ear lesion--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 ACUTE ILLNESS 05/06/2012 Patient Education: Patient Medication Summary Completed 05/06/2012 Visit Plan: Pt wants to hold on any furt her sleep medications 04/03/2012 Appointment: María Elena Appiah WPtel: [address] [place] [address] FOLLOW UP 04/03/2012 Patient Education: Patient Medication Summary Completed 04/03/2012 Appointment: María Elena Appiah WPtel: [address] [place] [address] FOLLOW UP 03/19/2012 Patient Education: Patient Medication Summary Completed 03/19/2012 Appointment: María Elena Appiah WPtel: [address] [place] [address] BP CHECK 02/22/2012 Patient Education: Patient Medication Summary Completed 02/22/2012 Appointment: María Elena Appiah WPtel: [address] [place] [address] BP CHECK 02/21/2012 Patient Education: Patient Medication Summary Completed 02/21/2012 Visit Plan: Doxycycline and bactroban fo r foot Supportive care on ankles and knees Add norvasc for BP 02/20/2012 Appointment: María Elena Appiah WPtel: [address] [place] [address] ER Follow UP 02/20/2012 Patient Education: Patient Medication Summary Completed 02/20/2012 Appointment: María Elena Appiah WPtel: [address] [place] [address] ACUTE ILLNESS 01/30/2012 Patient Education: Patient Medication Summary Completed 01/30/2012 Appointment: María Elena Appiahtel: [address] [place] [address] ACUTE ILLNESS 01/24/2012 Patient Education: Patient Medication Summary Completed 01/24/2012 Visit Plan: Daily back stretches, moist heat, Biofreeze prn OMT done 01/10/2012 Appointment: María Elena Appiah WPtel: [address] [place] [address] ACUTE ILLNESS 01/10/2012 Patient Education: Patient Medication Summary Completed 01/10/2012 Appointment: María Elena Appiah WPtel: [address] [place] [address] FOLLOW UP 12/11/2011 Patient Education: Patient Medication Summary Completed 12/11/2011 Appointment: María Elena Appiahtel: [address] [place] [address] ACUTE ILLNESS 11/09/2011 Patient Education: Patient Medication Summary Completed 11/09/2011 Appointment: María Elena Appiahtel: [address] [place] [address] ACUTE ILLNESS 09/13/2011 Patient Education: Patient Medication Summary Completed 09/13/2011 Visit Plan: Check CBC, TSH, Free T4, CMP , ESR, Vit D, B12 now Start Prednisone today 08/31/2011 Appointment: MaríaE lena Appiahtel: [address] [place] [address] ACUTE ILLNESS 08/31/2011 Patient Education: Patient Medication Summary Completed 08/31/2011 Appointment: María Elena Appiah WPtel: [address] [place] [address] [place] INJECTION 07/20/2011 Patient Education: Patient Medication Summary Completed 07/20/2011 Visit Plan: Continue current meds Monite r BP Cont stretches from PT 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 07/06/2011 Appointment: María Elena Appiah WPtel: [address] [place], [place] [phone] [place] FOLLOW UP 07/06/2011 Patient Education: Patient Medication Summary Completed 07/06/2011 Appointment: María Elena Appiah WPtel: [address] [place], [place] [phone] BP CHECK 06/06/2011 Patient Education: Patient Medication Summary Completed 06/06/2011 Visit Plan: Add Bystolic at 2.5mg QAM Ad d Robaxin 750mg 2 po q HS BP check in 2wks 05/22/2011 Appointment: María Elena Appiah WPtel: [address] [place], [place] [phone] FOLLOW UP 05/22/2011 Patient Education: Patient Medication Summary Completed 05/22/2011 Appointment: María Elena Appiah WPtel: [address] [place], [place] [phone] ER Follow UP 05/09/2011 Patient Education: Patient Medication Summary Completed 05/09/2011 Appointment: María Elena Appiah WPtel: [address] [place], [place] [phone] [place] FOLLOW UP 02/22/2011 Visit Plan: Rx written for Hydrocodone 1 0/325mg #240 See Ortho 02/14/2011 Appointment: María Elena Appiah WPtel: [address] [place], [place] [phone] OMT 02/14/2011 Patient Education: Patient Medication Summary [...] lab work. 02/03/2011 Appointment: Lashawn Eckert WPtel: [address] [place] [address] ACUTE ILLNESS 02/03/2011 Patient Education: Patient Medication Summary Completed 02/03/2011 Visit Plan: OMT done Cont daily stretche s 01/31/2011 Appointment: María Elena Appiah WPtel: [address] [place] [address] ACUTE ILLNESS 01/31/2011 Patient Education: Patient Medication Summary Completed 01/31/2011 Visit Plan: Continue pain meds OMT done Proceed with PT No work this summer01/25/2011 Appointment: María Elena Appiah WPtel: [address] [place] [address] ACUTE ILLNESS 01/25/2011 Patient Education: Patient Medication Summary Completed 01/25/2011 Visit Plan: Start PT Long discussion abo ut getting pain meds from only and can only have max of 4grams of tylenol per day Change to Hydrocodone 10/325mg 1- 2 po TID prn pain--#180 called to Radha 01/18/2011 Appointment: María Elena Appiah WPtel: [address] [place] [address] FOLLOW UP 01/18/2011 Patient Education: Patient Medication Summary Completed 01/18/2011 Visit Plan: Daily back stretches, moist heat, Biofreeze prn 11/29/2010 Appointment: María Elena Appiah WPtel: [address] [place] [address] ER Follow UP 11/29/2010 Patient Education: Patient Medication Summary Completed 11/29/2010 Visit Plan: Saline nasal flushes prn. Ty lenol/Motrin prn headache. Notify if persists/symptoms worsening. Finish augmentin Add Medrol Dose Pack 10/10/2010 Appointment: María Elena Appiah WPtel: [address] [place], [place] [id number] ACUTE ILLNESS 10/10/2010 Patient Education: Patient Medication Summary Completed 10/10/2010 Visit Plan: Cryotherapy x3 to multiple l esions on both forearms 07/19/2010 Appointment: María Elena Appiah WPtel: [address] [place], [place] [phone] OFFICE SURGERY 07/19/2010 Patient Education: Patient Medication Summary Completed 07/19/2010 Appointment: María Elena Appiah WPtel: [address] [place], [place] [phone] [place] BP CHECK 07/06/2010 Patient Education: Patient Medication Summary Completed 07/06/2010 Appointment: María Elena Appiahtel: [address] [place], [place] [phone] [place] BP CHECK 06/30/2010 Patient Education: Patient Medication Summary Completed 06/30/2010 Appointment: María Elena Appiah WPtel: [address] [place], [place] [phone] [place] BP CHECK 06/20/2010 Patient Education: Patient Medication Summary Completed 06/20/2010 Visit Plan: Change Diovan to Exforge 160 /5mg QD OMT done to thoracics BP check in 2wks 06/07/2010 Appointment: María Elena Appiah WPtel: [address] [place], [place] [phone] FOLLOW UP 06/07/2010 Patient Education: Patient Medication Summary Completed 06/07/2010 Appointment: María Elena Appiah WPtel: [address] [place], [place] [phone] [place] BP CHECK 06/03/2010 Patient Education: Patient Medication Summary Completed 06/03/2010 Appointment: María Elena Appiah WPtel: [address] [place], [place] [phone] [place] BP CHECK 06/01/2010 Patient Education: Patient Medication Summary Completed 06/01/2010 Visit Plan: Irritated skin tags to left neck x2 excised at base with scissors and base cauterized 05/30/2010 Appointment: María Elena Appiah WPtel: [address] [place] [address] OFFICE SURGERY 05/30/2010 Patient Education: Patient Medication Summary Completed 05/30/2010 Visit Plan: Saline nasal flushes prn. Ty lenol/Motrin prn headache. Notify if persists/symptoms worsening. Restart Nasonex Has allergy testing set for May 25 04/27/2010 Appointment: María Elena Appiah WPtel: [address] [place] [address] ACUTE ILLNESS 04/27/2010 Patient Education: Patient Medication Summary Completed 04/27/2010 Visit Plan: Saline nasal flushes prn. Ty lenol/Motrin prn headache. Notify if persists/symptoms worsening. Omnaris BID plus injections 04/05/2010 Appointment: María Elena Appiah WPtel: [address] [place] [address] ACUTE ILLNESS 04/05/2010 Patient Education: Patient Medication Summary Completed 04/05/2010 Visit Plan: Saline nasal flushes prn. Ty lenol/Motrin prn headache. Notify if persists/symptoms worsening. 03/09/2010 Appointment: María Elena Appiah WPtel: [address] [place] [address] ACUTE ILLNESS 03/09/2010 Patient Education: Patient Medication Summary Completed 03/09/2010 Visit Plan: Cont Clonidine as is Cont Pr emarin Fwup with surgery as scheduled 03/03/2010 Appointment: María Elena Appiah WPtel: [address] [place] [address] FOLLOW UP 03/03/2010 Patient Education: Patient Medication Summary Completed 03/03/2010 Visit Plan: Check Pelvic US now Dukee tacho Sal C vs Hysterectomy 01/17/2010 Appointment: María Elena Appiah WPtel: [address] [place] [address] ACUTE ILLNESS 01/17/2010 Patient Education: Patient Medication Summary Completed 01/17/2010 Visit Plan: Check fasting lab and schedu le Mammogram 2gm Na Diet Trial of Ambien 10mg qhs Fwup pending lab results 12/27/2009 Appointment: María Elena Appiah WPtel: [phone] [id number] [place] ESTABLISHED PATIENT 12/27/2009 Patient Education: Patient Medication Summary Completed 12/27/2009 Referral: Canelo Overton WPtel: [address] [id number] [place] Referral Initiated Referral: Philipp Flores WPtel: [address] [id number] [place] Referral Appointment Requested Instructions Comment . [...]
--- OUTSIDE RECORDS SUMMARY | 2020-03-13 07:09 | XMS REPORT | CCD ---
Author Author Gale Appiah D.O. Organization [facility] Address [address] [place] [id number] Phone Care Team Providers Care Environmental Services Supervisor Name Role Phone María Elena Appiah D.O., PP Unavailable CCM Unavailable Summary Purpose Interface Exchange Family History Family History data not found Social History Social History Element Codes Description Effective Dates Tobacco history SNOMED CT: 527731511 Never smoker 05/22/2011 Allergies, Adverse Reactions, Alerts [...] Instructions duloxetine 60 mg capsule,delayed release RxNorm: 448715 TAKE ONE CAPSULE BY MOUTH DAILY 09/11/2019 No Stop Date Active Lipitor 10 mg tablet RxNorm: 939652 TAKE ONE TABLET BY MOUTH AT BEDTIME 09/11/2019 No Stop Date Active lisinopril 20 mg tablet RxNorm: 023268 TAKE ONE TABLET BY MOUTH DAILY .... THIS REPLACE 10MG TABLETS 09/11/2019 No Stop Date Active triamterene 75 mg-hydrochlorothiazide 50 mg tablet RxNorm: 3 95846 TAKE ONE TABLET BY MOUTH DAILY 09/11/2019 No Stop Date Active allopurinol 300 mg tablet RxNorm: 457459 TAKE ONE TABLET BY LOPEZ TH DAILY 09/11/2019 No Stop Date Active celecoxib 200 mg capsule RxNorm: 855126 TAKE ONE CAPSUL E BY MOUTH TWICE A DAY NEEDED FOR PAIN 09/11/2019 No Stop Date Active clonidine HCl 0.1 mg tablet RxNorm: 493775 TAKE ONE TAB LET BY MOUTH FOUR TIMES A DAY 09/11/2019 No Stop Date Active doxepin 25 mg capsule RxNorm: 5763838 1 Capsule(s) Oral every night at bedtime as needed for sleep 08/21/2019 11/18/2019 Active hydrocodone 10 mg-acetaminophen 325 mg tablet RxNorm: 828867 1-2 Tablet(s) PO TID 08/12/2019 No Stop Date Active as needed for pa in - Previous quantity #240, will start dosing for #180 in April 2011 per Doctor Td. Medrol (Dustin) 4 mg tablets in a dose pack RxNorm: 760404 Tablet(s) Oral As Directed 07/21/2019 No Stop Date Active Premarin 1.25 mg tablet RxNorm: 434735 1 Tablet(s) Oral QD 07/02/20 19 03/28/2020 Active hydrocodone 10 mg-acetaminophen 325 mg tablet RxNorm: 891646 1-2 Tablet(s) PO TID 07/01/2019 08/11/2019 Inactive as needed for pa in - Previous quantity #240, will start dosing for #180 in April 2011 per Doctor Td. gabapentin 300 mg capsule RxNorm: 983628 1 Capsule(s) PO QHS 201809/24/2019 Active celecoxib 200 mg capsule RxNorm: 065988 1 Capsule(s) Or al two times a day as needed for pain 06/27/2019 06/27/2019 Inactive Singulair 10 mg tablet RxNorm: 142445 TAKE ONE TABLET BY MOUTH JOSÉ Y 06/24/2019 No Stop Date Active furosemide 40 mg tablet RxNorm: 268445 TAKE ONE TABLET BY MOUTH EVERY MORNING NEEDED FOR EDEMA . TAKE WITH POTASSIUM 06/24/2019 No Stop Date Active doxepin 25 mg capsule RxNorm: 7048789 TAKE ONE CAPSULE B Y MOUTH EVERY NIGHT AT BEDTIME NEEDED FOR SLEEP 06/24/2019 08/20/2019 Inactive lisinopril 20 mg tablet RxNorm: 666156 TAKE ONE TABLET BY MOUTH DAILY .... THIS REPLACE 10MG TABLETS 06/24/2019 09/10/2019 Inactive nystatin-triamcinolone 100,000 unit/g-0.1 % topical cream Rx Norm: 0903682 1 Application Topical two times a day 06/12/2019 06/19/2019 Inactive apply BID for 1 week nystatin-triamcinolone 100,000 unit/g-0.1 % topical cream Rx Norm: 9094923 1 Application Topical two times a day 06/12/2019 06/11/2019 Inactive apply BID for 1 week hydrocodone 10 mg-acetaminophen 325 mg tablet RxNorm: 008217 1-2 Tablet(s) PO QID as needed for pain MUST LAST 30 DAYS 05/28/2019 06/26/2019 Inactiv e (Response to an electronic controlled substance refill request - RxReferenceNumber: [id number]) baclofen 20 mg tablet RxNorm: 475728 1 Tablet(s) PO TID as needed for muscle spasm 05/19/2019 05/27/2019 Inactive gabapentin 300 mg capsule RxNorm: 403087 1 Capsule(s) PO QHS 201805/27/2019 Inactive lisinopril 20 mg tablet RxNorm: 620592 1 Tablet(s) PO Q D TAKE ONE TABLET BY MOUTH DAILY, REPLACES 10 MG DOSE 05/19/2019 06/23/2019 Inactive doxepin 25 mg capsule RxNorm: 2913197 TAKE ONE CAPSULE B Y MOUTH EVERY NIGHT AT BEDTIME NEEDED FOR SLEEP 05/16/2019 06/14/2019 Inactive lisinopril 20 mg tablet RxNorm: 033937 TAKE ONE TABLET BY MOUTH DAILY, REPLACES 10 MG DOSE 05/16/2019 05/18/2019 Inactive Singulair 10 mg tablet RxNorm: 862456 TAKE ONE TABLET BY MOUTH JOSÉ Y 05/16/2019 06/14/2019 Inactive gabapentin 300 mg capsule RxNorm: 111239 1 Capsule(s) PO QHS 201805/04/2019 Inactive estropipate 1.5 mg tablet RxNorm: 934495 1 Tablet(s) PO QD 05/05/2005/27/2019 Inactive estropipate 1.5 mg tablet RxNorm: 143003 1 Tablet(s) PO QD 05/05/2005/04/2019 Inactive gabapentin 300 mg capsule RxNorm: 865512 1 Capsule(s) PO QHS 201805/18/2019 Inactive hydrocodone 10 mg-acetaminophen 325 mg tablet RxNorm: 465394 1-2 Tablet(s) PO QID as needed for pain MUST LAST 30 DAYS 04/25/2019 05/24/2019 Inactiv e (Response to an electronic controlled substance refill request - RxReferenceNumber: [id number]) metoprolol tartrate 100 mg tablet RxNorm: 142484 TAKE O NE TABLET BY MOUTH TWICE A DAY 04/24/2019 06/22/2019 Inactive cyclobenzaprine 10 mg tablet RxNorm: 709117 TAKE ONE TA BLET BY MOUTH THREE TIMES A DAY NEEDED FOR MUSCLE SPASMS 04/24/2019 05/18/2019 Inactive Lyrica 75 mg capsule RxNorm: 679297 1 Capsule(s) PO QHS 03/25/2019 Inactive Klor-Con 8 mEq tablet,extended release RxNorm: 440242 T FARRUKH ONE TABLET BY MOUTH TWICE A DAY 03/21/2019 05/19/2019 Inactive duloxetine 60 mg capsule,delayed release RxNorm: 091621 TAKE ONE CAPSULE BY MOUTH DAILY 03/21/2019 05/19/2019 Inactive triamterene 75 mg-hydrochlorothiazide 50 mg tablet RxNorm: 3 93259 TAKE ONE TABLET BY MOUTH DAILY 03/21/2019 05/19/2019 Inactive Lipitor 10 mg tablet RxNorm: 856986 TAKE ONE TABLET BY MOUTH AT BEDTIME 03/21/2019 09/10/2019 Inactive clonidine HCl 0.1 mg tablet RxNorm: 267288 TAKE ONE TAB LET BY MOUTH FOUR TIMES A DAY 03/21/2019 05/19/2019 Inactive allopurinol 300 mg tablet RxNorm: 091122 TAKE ONE TABLET BY LOPEZ TH DAILY 03/21/2019 05/19/2019 Inactive hydrocodone 10 mg-acetaminophen 325 mg tablet RxNorm: 827758 1-2 Tablet(s) PO QID as needed for pain MUST LAST 30 DAYS 02/28/2019 03/29/2019 Inactiv e (Response to an electronic controlled substance refill request - RxReferenceNumber: [id number]) furosemide 40 mg tablet RxNorm: 886385 TAKE ONE TABLET BY MOUTH EVERY MORNING NEEDED FOR EDEMA . TAKE WITH POTASSIUM 02/21/2019 03/22/2019 Inactive cyclobenzaprine 10 mg tablet RxNorm: 878747 TAKE ONE TA BLET BY MOUTH THREE TIMES A DAY NEEDED FOR MUSCLE SPASMS 02/21/2019 04/21/2019 Inactive lisinopril 20 mg tablet RxNorm: 455242 TAKE ONE TABLET BY MOUTH DAILY, REPLACES 10 MG DOSE 02/21/2019 05/15/2019 Inactive doxepin 25 mg capsule RxNorm: 7755224 TAKE ONE CAPSULE B Y MOUTH EVERY NIGHT AT BEDTIME NEEDED FOR SLEEP 02/21/2019 05/15/2019 Inactive nystatin 100,000 unit/gram topical cream RxNorm: 584054 APPLY TO AFFECTED AREA(S) TWO TIMES A DAY 02/21/2019 03/22/2019 Inactive estradiol 1 mg tablet RxNorm: 632881 2 Tablet(s) PO QD replaces premarin 01/22/2019 05/04/2019 Inactive lisinopril 20 mg tablet RxNorm: 900947 TAKE ONE TABLET BY MOUTH DAILY, REPLACES 10 MG DOSE 01/20/2019 02/18/2019 Inactive cyclobenzaprine 10 mg tablet RxNorm: 428815 TAKE ONE TA BLET BY MOUTH THREE TIMES A DAY NEEDED FOR MUSCLE SPASMS 01/20/2019 02/18/2019 Inactive metoprolol tartrate 100 mg tablet RxNorm: 191565 TAKE O NE TABLET BY MOUTH TWICE A DAY 01/20/2019 02/18/2019 Inactive cyclobenzaprine 10 mg tablet RxNorm: 911978 TAKE ONE TA BLET BY MOUTH THREE TIMES A DAY NEEDED FOR MUSCLE SPASMS 12/19/2018 01/17/2019 Inactive lisinopril 20 mg tablet RxNorm: 816783 TAKE ONE TABLET BY MOUTH DAILY, REPLACES 10 MG DOSE 12/19/2018 01/17/2019 Inactive duloxetine 60 mg capsule,delayed release RxNorm: 677158 TAKE ONE CAPSULE BY MOUTH DAILY 12/19/2018 01/17/2019 Inactive Lipitor 10 mg tablet RxNorm: 473051 TAKE ONE TABLET BY MOUTH AT BEDTIME 12/19/2018 01/17/2019 Inactive cyclobenzaprine 10 mg tablet RxNorm: 950510 1 Tablet(s) PO TID as needed for muscle spasm 11/19/2018 12/18/2018 Inactive Singulair 10 mg tablet RxNorm: 950676 1 Tablet(s) PO QD 11/19/2018 Inactive lisinopril 20 mg tablet RxNorm: 484221 TAKE ONE TABLET BY MOUTH DAILY, REPLACES 10 MG DOSE 11/15/2018 12/18/2018 Inactive hydrocodone 10 mg-acetaminophen 325 mg tablet RxNorm: 156107 1-2 Tablet(s) PO QID as needed for pain MUST LAST 30 DAYS 11/13/2018 12/12/2018 Inactiv e (Response to an electronic controlled substance refill request - RxReferenceNumber: [id number]) nystatin 100,000 unit/gram topical cream RxNorm: 522263 APPLY TO AFFECTED AREA(S) TWO TIMES A DAY 10/23/2018 11/06/2018 Inactive lisinopril 20 mg tablet RxNorm: 851085 1 Tablet(s) PO QD replac es 10mg dose 10/18/2018 11/14/2018 Inactive hydrocodone 10 mg-acetaminophen 325 mg tablet RxNorm: 208005 1-2 Tablet(s) QID as needed for pain MUST LAST 30 DAYS 10/08/2018 11/06/2018 Inactive (Response to an electronic controlled substance refill request - RxReferenceNumber: [id number]) lisinopril 10 mg tablet RxNorm: 823586 1 Tablet(s) PO QD 10/03/2018 0 01/21/2019 Inactive Celebrex 200 mg capsule RxNorm: 950388 TAKE ONE CAPSULE BY MOUT H TWICE A DAY 09/30/2018 05/04/2019 Inactive cyclobenzaprine 10 mg tablet RxNorm: 959047 TAKE ONE TA BLET BY MOUTH THREE TIMES A DAY NEEDED FOR MUSCLE SPASMS 09/30/2018 11/18/2018 Inactive doxepin 25 mg capsule RxNorm: 1383859 TAKE ONE CAPSULE B Y MOUTH EVERY NIGHT AT BEDTIME NEEDED 09/05/2018 10/16/2018 Inactive omeprazole 40 mg capsule,delayed release RxNorm: 881827 TAKE ONE CAPSULE BY MOUTH DAILY 09/05/2018 01/21/2019 Inactive furosemide 40 mg tablet RxNorm: 824042 TAKE ONE TABLET BY MOUTH EVERY MORNING NEEDED FOR EDEMA . TAKE WITH POTASSIUM 09/05/2018 11/03/2018 Inactive phentermine 37.5 mg tablet RxNorm: 421261 1 Tablet(s) PO QAM 201701/21/2019 Inactive doxepin 25 mg capsule RxNorm: 2591754 1 Capsule(s) PO QH S as needed for sleep TAKE ONE CAPSULE BY MOUTH EVERY NIGHT AT BEDTIME NEEDED 08/27/2018 09/04/2018 Inactive Keflex 500 mg capsule RxNorm: 175255 1 Capsule(s) PO TID 08/09/2018 1 10/19/2017 Inactive Diflucan 100 mg tablet RxNorm: 276980 1 Tablet(s) PO QD 08/09/2018 Inactive Premarin 1.25 mg tablet RxNorm: 421422 2 Tablet(s) PO QD 08/09/2018 0 05/04/2019 Inactive Zofran ODT 4 mg disintegrating tablet RxNorm: 059070 1 Tablet(s) PO Q4H as needed for nausea 08/09/2018 01/21/2019 Inactive metoprolol tartrate 100 mg tablet RxNorm: 923989 TAKE O NE TABLET BY MOUTH TWICE A DAY 2018 10/04/2018 Inactive doxepin 25 mg capsule RxNorm: 6628267 TAKE ONE CAPSULE B Y MOUTH EVERY NIGHT AT BEDTIME NEEDED 2018 08/26/2018 Inactive cyclobenzaprine 10 mg tablet RxNorm: 354648 TAKE ONE TA BLET BY MOUTH THREE TIMES A DAY NEEDED FOR MUSCLE SPASMS 2018 09/29/2018 Inactive hydrocodone 10 mg-acetaminophen 325 mg tablet RxNorm: 878264 1-2 Tablet(s) QID as needed for pain MUST LAST 30 DAYS 07/29/2018 08/27/2018 Inactive (Response to an electronic controlled substance refill request - RxReferenceNumber: [id number]) nystatin 100,000 unit/gram topical powder RxNorm: 213027 Applic ation TOP BID 07/22/2018 08/04/2018 Inactive doxepin 25 mg capsule RxNorm: 6148073 1 Capsule(s) PO QHS as needed 07/22/2018 08/05/2018 Inactive triamterene 75 mg-hydrochlorothiazide 50 mg tablet RxNorm: 3 16444 TAKE ONE TABLET BY MOUTH DAILY 07/05/2018 10/02/2018 Inactive duloxetine 60 mg capsule,delayed release RxNorm: 456856 TAKE ONE CAPSULE BY MOUTH DAILY 07/05/2018 09/02/2018 Inactive Klor-Con 8 mEq tablet,extended release RxNorm: 952726 T FARRUKH ONE TABLET BY MOUTH TWICE A DAY 07/05/2018 10/02/2018 Inactive Lipitor 10 mg tablet RxNorm: 925876 TAKE ONE TABLET BY MOUTH AT BEDTIME 07/05/2018 09/02/2018 Inactive allopurinol 300 mg tablet RxNorm: 599217 TAKE ONE TABLET BY LOPEZ TH DAILY 07/05/2018 10/02/2018 Inactive clonidine HCl 0.1 mg tablet RxNorm: 367726 TAKE ONE TAB LET BY MOUTH FOUR TIMES A DAY 07/05/2018 10/02/2018 Inactive hydrocodone 10 mg-acetaminophen 325 mg tablet RxNorm: 329920 1-2 Tablet(s) QID as needed for pain MUST LAST 30 DAYS 06/28/2018 07/27/2018 Inactive (Response to an electronic controlled substance refill request - RxReferenceNumber: [id number]) MediHoney (calcium alginate-honey) 4" X 5" bandage RxNorm: 1 Application TOP QD 06/17/2018 06/26/2018 Inactive honey-hydrocolloid dressing 4" X 5" RxNorm: 1 Application TOP QD 06/17/2018 07/16/2018 Inactive furosemide 40 mg tablet RxNorm: 337847 TAKE ONE TABLET BY MOUTH EVERY MORNING NEEDED FOR EDEMA . TAKE WITH POTASSIUM 06/10/2018 07/09/2018 Inactive This is a refill request. hydrocodone 10 mg-acetaminophen 325 mg tablet RxNorm: 898253 1-2 Tablet(s) QID as needed for pain MUST LAST 30 DAYS 05/30/2018 06/27/2018 Inactive (Response to an electronic controlled substance refill request - RxReferenceNumber: [id number]) acyclovir 800 mg tablet RxNorm: 826366 1 Tablet(s) PO 5x day 201705/22/2018 Inactive Premarin 1.25 mg tablet RxNorm: 242876 1-2 Tablet(s) PO QD 05/15/2007/13/2018 Inactive cyclobenzaprine 10 mg tablet RxNorm: 822981 1 Tablet(s) PO TID as needed for muscle spasm 05/09/2018 05/08/2018 Inactive Medrol (Dustin) 4 mg tablets in a dose pack RxNorm: 708776 Tablet(s) PO As Directed 05/02/2018 06/16/2018 Inactive hydrocodone 10 mg-acetaminophen 325 mg tablet RxNorm: 522381 1-2 Tablet(s) QID as needed for pain MUST LAST 30 DAYS 04/30/2018 05/29/2018 Inactive (Response to an electronic controlled substance refill request - RxReferenceNumber: [id number]) duloxetine 60 mg capsule,delayed release RxNorm: 980853 TAKE ONE CAPSULE BY MOUTH DAILY 04/16/2018 05/15/2018 Inactive Celebrex 200 mg capsule RxNorm: 519777 TAKE ONE CAPSULE BY MOUT H TWICE A DAY 04/16/2018 06/14/2018 Inactive Singulair 10 mg tablet RxNorm: 482965 TAKE ONE TABLET BY MOUTH JOSÉ Y 04/16/2018 11/19/2018 Inactive Lipitor 10 mg tablet RxNorm: 899353 TAKE ONE TABLET BY MOUTH AT BEDTIME 04/16/2018 05/15/2018 Inactive hydrocodone 10 mg-acetaminophen 325 mg tablet RxNorm: 073182 1-2 Tablet(s) QID as needed for pain MUST LAST 30 DAYS 03/29/2018 04/27/2018 Inactive (Response to an electronic controlled substance refill request - RxReferenceNumber: [id number]) cyclobenzaprine 10 mg tablet RxNorm: 351123 1 Tablet(s) PO TID as needed for muscle spasm 03/18/2018 05/09/2018 Inactive omeprazole 40 mg capsule,delayed release RxNorm: 736824 1 Capsu le(s) PO QD 02/26/2018 08/24/2018 Inactive hydrocodone 10 mg-acetaminophen 325 mg tablet RxNorm: 677559 1-2 Tablet(s) QID as needed for pain MUST LAST 30 DAYS 02/26/2018 03/27/2018 Inactive (Response to an electronic controlled substance refill request - RxReferenceNumber: [id number]) metoprolol tartrate 100 mg tablet RxNorm: 292052 1 Tablet(s) PO BID 02/18/2018 08/05/2018 Inactive Lyrica 75 mg capsule RxNorm: 813159 1 Capsule(s) PO QHS 01/30/2018 Inactive phentermine 37.5 mg tablet RxNorm: 284707 1 Tablet(s) PO QAM 201706/16/2018 Inactive hydrocodone 10 mg-acetaminophen 325 mg tablet RxNorm: 133221 1-2 Tablet(s) QID as needed for pain MUST LAST 30 DAYS 01/29/2018 02/25/2018 Inactive (Response to an electronic controlled substance refill request - RxReferenceNumber: [id number]) Klor-Con 8 mEq tablet,extended release RxNorm: 266826 1 Tablet( s) PO BID 01/14/2018 07/04/2018 Inactive allopurinol 300 mg tablet RxNorm: 211912 1 Tablet(s) PO QD 01/15/2007/04/2018 Inactive Lipitor 10 mg tablet RxNorm: 790836 1 Tablet(s) PO QHS 01/14/201812/2017 Inactive triamterene 75 mg-hydrochlorothiazide 50 mg tablet RxNorm: 3 55040 1 Tablet(s) PO QD 01/14/2018 07/04/2018 Inactive hydrocodone 10 mg-acetaminophen 325 mg tablet RxNorm: 177036 1-2 Tablet(s) QID as needed for pain MUST LAST 30 DAYS 12/27/2017 01/25/2018 Inactive (Response to an electronic controlled substance refill request - RxReferenceNumber: [id number]) Onglyza 5 mg tablet RxNorm: 667155 1 Tablet(s) PO QD 12/18/201701/29 Inactive metformin 500 mg tablet RxNorm: 645836 1 Tablet(s) PO BID 12/11/2017 12/10/2017 Inactive metformin 500 mg tablet RxNorm: 063388 1 Tablet(s) PO BID 12/11/2017 12/17/2017 Inactive furosemide 40 mg tablet RxNorm: 312055 1 Tablet(s) PO Q AM prn edema--take with potassium 12/11/2017 06/08/2018 Inactive cyclobenzaprine 10 mg tablet RxNorm: 257162 1 Tablet(s) PO TID as needed for muscle spasm 12/11/2017 03/18/2018 Inactive hydrocodone 10 mg-acetaminophen 325 mg tablet RxNorm: 115913 1-2 Tablet(s) QID as needed for pain MUST LAST 30 DAYS 10/23/2017 11/21/2017 Inactive (Response to an electronic controlled substance refill request - RxReferenceNumber: [id number]) Lipitor 10 mg tablet RxNorm: 920678 1 Tablet(s) PO QHS 10/16/201703/2018 Inactive cyclobenzaprine 10 mg tablet RxNorm: 425039 1 Tablet(s) PO TID as needed for muscle spasm 10/09/2017 12/10/2017 Inactive hydroxyzine HCl 25 mg tablet RxNorm: 008800 1 Tablet(s) PO BID as needed for anxiety 09/20/2017 01/29/2018 Inactive Effexor XR 75 mg capsule,extended release RxNorm: 037351 1 Caps ule(s) PO QD 09/20/2017 01/29/2018 Inactive metoprolol tartrate 100 mg tablet RxNorm: 059869 1 Tablet(s) PO BID 08/20/2017 02/18/2018 Inactive baclofen 20 mg tablet RxNorm: 559944 1 Tablet(s) PO TID as needed for muscle spasm 08/20/2017 01/21/2019 Inactive clonidine HCl 0.1 mg tablet RxNorm: 881434 1 Tablet(s) PO QID 08/2005/16/2018 Inactive Seroquel 25 mg tablet RxNorm: 299028 1 Tablet(s) PO QHS 08/17/2017 Inactive Seroquel 25 mg tablet RxNorm: 167575 1 Tablet(s) PO QHS 08/17/2017 Inactive Diflucan 100 mg tablet RxNorm: 525352 TAKE ONE TABLET BY MOUTH JOSÉ Y 07/25/2017 08/07/2017 Inactive hydrocodone 10 mg-acetaminophen 325 mg tablet RxNorm: 060857 1-2 Tablet(s) QID as needed for pain MUST LAST 30 DAYS 07/19/2017 08/17/2017 Inactive (Response to an electronic controlled substance refill request - RxReferenceNumber: [id number]) clindamycin 300 mg capsule RxNorm: 209743 1 Capsule(s) PO TID 07/1907/28/2017 Inactive clotrimazole-betamethasone 1 %-0.05 % topical cream RxNorm: 948488 Application TOP BID to elbow rash 07/19/2017 06/16/2018 Inactive Singulair 10 mg tablet RxNorm: 150054 Tablet(s) TAKE ONE TABLET BY MOUTH DAILY 07/18/2017 04/13/2018 Inactive triamterene 75 mg-hydrochlorothiazide 50 mg tablet RxNorm: 3 76683 1 Tablet(s) PO QD 07/18/2017 01/14/2018 Inactive Celebrex 200 mg capsule RxNorm: 006811 Capsule(s) TAKE ONE CAPSULE BY MOUTH TWICE A DAY 07/18/2017 10/15/2017 Inactive hydrocodone 10 mg-acetaminophen 325 mg tablet RxNorm: 360902 1-2 Tablet(s) QID as needed for pain MUST LAST 30 DAYS 06/19/2017 07/18/2017 Inactive (Response to an electronic controlled substance refill request - RxReferenceNumber: [id number]) hydrocodone 10 mg-acetaminophen 325 mg tablet RxNorm: 614803 1-2 Tablet(s) QID as needed for pain MUST LAST 30 DAYS 06/19/2017 06/18/2017 Inactive (Response to an electronic controlled substance refill request - RxReferenceNumber: [id number]) baclofen 20 mg tablet RxNorm: 423732 1 Tablet(s) PO TID as needed for muscle spasm 06/18/2017 08/20/2017 Inactive Medrol (Dustin) 4 mg tablets in a dose pack RxNorm: 535879 Tablet(s) PO As Directed 06/05/2017 07/18/2017 Inactive omeprazole 40 mg capsule,delayed release RxNorm: 675083 1 Capsu le(s) PO QD 04/20/2017 10/16/2017 Inactive Premarin 1.25 mg tablet RxNorm: 413176 1-2 Tablet(s) PO QD 04/11/20 17 05/15/2018 Inactive duloxetine 60 mg capsule,delayed release RxNorm: 564521 1 Capsu le(s) PO QD 04/11/2017 09/19/2017 Inactive furosemide 40 mg tablet RxNorm: 296286 1 Tablet(s) PO Q AM prn edema--take with potassium 04/11/2017 12/11/2017 Inactive Klor-Con 8 mEq tablet,extended release RxNorm: 141603 1 Tablet( s) PO BID 04/11/2017 01/14/2018 Inactive Lipitor 10 mg tablet RxNorm: 754332 1 Tablet(s) PO QHS 04/11/201702/2018 Inactive amlodipine 5 mg-benazepril 20 mg capsule RxNorm: 919898 1 Capsu le(s) PO QD 04/11/2017 01/29/2018 Inactive allopurinol 300 mg tablet RxNorm: 057270 1 Tablet(s) PO QD 04/11/20 17 01/14/2018 Inactive clonidine HCl 0.1 mg tablet RxNorm: 705988 1 Tablet(s) PO QID 04/0508/19/2017 Inactive baclofen 20 mg tablet RxNorm: 032284 1 Tablet(s) PO TID as needed for muscle spasm 04/02/2017 06/18/2017 Inactive Premarin 1.25 mg tablet RxNorm: 631623 1-2 Tablet(s) PO QD 03/20/20 17 04/10/2017 Inactive hydrocodone 10 mg-acetaminophen 325 mg tablet RxNorm: 919888 1-2 Tablet(s) QID as needed for pain MUST LAST 30 DAYS 03/14/2017 01/21/2019 Inactive (Response to an electronic controlled substance refill request - RxReferenceNumber: [id number]) metoprolol tartrate 100 mg tablet RxNorm: 085799 1 Tablet(s) PO BID 02/12/2017 08/20/2017 Inactive hydrocodone 10 mg-acetaminophen 325 mg tablet RxNorm: 955373 1-2 Tablet(s) QID as needed for pain MUST LAST 30 DAYS 02/08/2017 03/09/2017 Inactive (Response to an electronic controlled substance refill request [id number]) metoprolol tartrate 100 mg tablet RxNorm: 648585 TAKE O NE TABLET BY MOUTH TWICE A DAY 01/11/2017 02/12/2017 Inactive metoprolol tartrate 100 mg tablet RxNorm: 885556 1 Tablet(s) PO BID 12/18/2016 12/17/2016 Inactive metoprolol tartrate 100 mg tablet RxNorm: 247841 1 Tablet(s) PO BID 12/18/2016 01/10/2017 Inactive furosemide 40 mg tablet RxNorm: 435591 1 Tablet(s) PO Q AM prn edema--take with potassium 12/13/2016 02/10/2017 Inactive amitriptyline 100 mg tablet RxNorm: 526719 1 Tablet(s) PO QHS 11/2812/12/2016 Inactive baclofen 20 mg tablet RxNorm: 062371 1 Tablet(s) PO TID as needed for muscle spasm 11/14/2016 04/01/2017 Inactive triamterene 75 mg-hydrochlorothiazide 50 mg tablet RxNorm: 3 04891 1 Tablet(s) PO QD 11/14/2016 11/13/2016 Inactive metolazone 2.5 mg tablet RxNorm: 760243 TAKE ONE TABLET BY MOUTH DAILY NEEDED FOR EDEMA 11/14/2016 12/12/2016 Inactive triamterene 75 mg-hydrochlorothiazide 50 mg tablet RxNorm: 3 64845 1 Tablet(s) PO QD 11/14/2016 07/18/2017 Inactive amitriptyline 50 mg tablet RxNorm: 007319 TAKE ONE TABL ET BY MOUTH AT BEDTIME NEEDED FOR SLEEP 11/14/2016 11/27/2016 Inactive Cymbalta 60 mg capsule,delayed release RxNorm: 311360 1 Capsule (s) PO QHS 11/14/2016 12/12/2016 Inactive clonidine HCl 0.1 mg tablet RxNorm: 191778 1 Tablet(s) PO QID 11/1304/04/2017 Inactive amitriptyline 50 mg tablet RxNorm: 540111 1 Tablet(s) P O QHS as needed for sleep 11/01/2016 11/27/2016 Inactive duloxetine 60 mg capsule,delayed release RxNorm: 265450 TAKE ONE CAPSULE BY MOUTH DAILY 10/20/2016 01/17/2017 Inactive allopurinol 300 mg tablet RxNorm: 063466 TAKE ONE TABLET BY LOPEZ TH DAILY 10/20/2016 01/16/2017 Inactive Lyrica 75 mg capsule RxNorm: 768751 TAKE ONE CAPSULE BY MOUTH EVERY NIGHT AT BEDTIME 10/20/2016 12/10/2016 Inactive Klor-Con 8 mEq tablet,extended release RxNorm: 551996 T FARRUKH ONE TABLET BY MOUTH TWICE A DAY 10/20/2016 01/17/2017 Inactive Celebrex 200 mg capsule RxNorm: 855960 TAKE ONE CAPSULE BY MOUT H TWICE A DAY 10/20/2016 07/18/2017 Inactive Bystolic 10 mg tablet RxNorm: 025272 TAKE ONE TABLET BY MOUTH EVERY NIGHT AT BEDTIME 10/20/2016 12/17/2016 Inactive amlodipine 5 mg-benazepril 20 mg capsule RxNorm: 704720 TAKE ONE CAPSULE BY MOUTH EVERY NIGHT AT BEDTIME -- TO REPLACE AMLODOPINE 10/20/20162016 Inactive Lipitor 10 mg tablet RxNorm: 435567 TAKE ONE TABLET BY MOUTH EVERY NIGHT AT BEDTIME 10/20/2016 01/17/2017 Inactive alprazolam 0.5 mg tablet RxNorm: 848127 3 Tablet(s) PO QHS as needed for sleep/anxiety 09/20/2016 10/31/2016 Inactive Tamiflu 75 mg capsule RxNorm: 093027 1 Capsule(s) PO QD 09/19/2016 Inactive Lyrica 75 mg capsule RxNorm: 408162 1 Capsule(s) PO QHS 09/19/2016 Inactive prednisone 20 mg tablet RxNorm: 239940 1 Tablet(s) PO QD 08/10/2016 1 10/17/2015 Inactive doxycycline hyclate 100 mg capsule RxNorm: 1771558 1 Capsule(s) PO BID 08/10/2016 08/19/2016 Inactive Medrol (Dustin) 4 mg tablets in a dose pack RxNorm: 367779 Tablet(s) PO As Directed 07/31/2016 08/22/2016 Inactive Singulair 10 mg tablet RxNorm: 353601 TAKE ONE TABLET BY MOUTH JOSÉ Y 07/27/2016 07/18/2017 Inactive hydrocodone 10 mg-acetaminophen 325 mg tablet RxNorm: 032149 1-2 Tablet(s) QID as needed for pain MUST LAST 30 DAYS 07/26/2016 08/24/2016 Inactive (Response to an electronic controlled substance refill request - RxReferenceNumber: [id number]) alprazolam 0.5 mg tablet RxNorm: 775451 3 Tablet(s) PO QHS as needed for anxiety or sleep 07/26/2016 09/20/2016 Inactive clindamycin 300 mg capsule RxNorm: 851807 1 Capsule(s) PO TID 07/2007/29/2016 Inactive Diflucan 100 mg tablet RxNorm: 350645 1 Tablet(s) PO QD 07/20/2016 Inactive Levaquin 500 mg tablet RxNorm: 070764 1 Tablet(s) PO QD 07/17/2016 Inactive Levaquin 500 mg tablet RxNorm: 743140 1 Tablet(s) PO QD 07/10/2016 Inactive Levaquin 500 mg tablet RxNorm: 990051 1 Tablet(s) PO QD 07/10/2016 Inactive mupirocin 2 % topical ointment RxNorm: 202756 TOP Apply topically to affected areas twice daily 07/06/2016 09/18/2016 Inactive Singulair 10 mg tablet RxNorm: 400921 TAKE ONE TABLET BY MOUTH JOSÉ Y 06/21/2016 01/21/2019 Inactive alprazolam 0.5 mg tablet RxNorm: 940018 TAKE THREE TABL ETS BY MOUTH AT BEDTIME NEEDED FOR SLEEP OR STRESS 05/22/2016 06/20/2016 Inactive triamterene 75 mg-hydrochlorothiazide 50 mg tablet RxNorm: 3 05294 1 Tablet(s) PO QD 04/26/2016 10/21/2016 Inactive Premarin 1.25 mg tablet RxNorm: 951711 1-2 Tablet(s) PO QD 04/26/20 16 03/20/2017 Inactive Klor-Con 8 mEq tablet,extended release RxNorm: 850365 1 Tablet( s) PO BID 04/26/2016 10/19/2016 Inactive Celebrex 200 mg capsule RxNorm: 454316 1 Capsule(s) PO BID TAKE ONE CAPSULE BY MOUTH EVERY DAY 04/26/2016 10/19/2016 Inactive Lipitor 10 mg tablet RxNorm: 375661 1 Tablet(s) PO QHS 04/26/201605/2017 Inactive allopurinol 300 mg tablet RxNorm: 366080 1 Tablet(s) PO QD TAKE ONE TABLET BY MOUTH EVERY DAY 04/26/2016 10/19/2016 Inactive amlodipine 5 mg-benazepril 20 mg capsule RxNorm: 727330 1 Capsule(s) PO QHS replaces amlodopine 04/26/2016 10/19/2016 Inactive duloxetine 60 mg capsule,delayed release RxNorm: 781085 1 Capsu le(s) PO QD 04/26/2016 10/19/2016 Inactive Bystolic 10 mg tablet RxNorm: 518744 1 Tablet(s) PO QHS 04/26/2016 Inactive Singulair 10 mg tablet RxNorm: 845146 1 Tablet(s) PO QD TAKE ONE TABLET BY MOUTH DAILY 04/26/2016 06/20/2016 Inactive clonidine HCl 0.1 mg tablet RxNorm: 926070 1 Tablet(s) PO QID 04/2610/22/2016 Inactive hydrocodone 10 mg-acetaminophen 325 mg tablet RxNorm: 546266 1-2 Tablet(s) QID as needed for pain TAKE ONE TO TWO TABLETS BY MOUTH FOUR TIMES A DAY . MUST LAST 30 DAYS 03/31/2016 04/29/2016 Inactive (Response to an electronic controlled substance refill request - RxReferenceNumber: [id number]) Klor-Con 8 mEq tablet,extended release RxNorm: 803727 T FARRUKH ONE TABLET BY MOUTH TWICE A DAY 03/24/2016 04/22/2016 Inactive prednisone 20 mg tablet RxNorm: 124815 1 Tablet(s) PO QD 03/09/2016 0 03/08/2016 Inactive prednisone 20 mg tablet RxNorm: 106847 1 Tablet(s) PO QD 03/09/2016 0 03/13/2016 Inactive alprazolam 0.5 mg tablet RxNorm: 408610 3 Tablet(s) PO QHS as needed for sleep/stress 03/02/2016 01/21/2019 Inactive mupirocin 2 % topical ointment RxNorm: 418259 TOP twice daily to affected areas of face and neck 02/21/2016 04/25/2016 Inactive clonidine HCl 0.1 mg tablet RxNorm: 874833 TAKE ONE TAB LET BY MOUTH FOUR TIMES A DAY 02/15/2016 03/15/2016 Inactive clonidine HCl 0.1 mg tablet RxNorm: 415968 1 Tablet(s) PO QID 02/1404/25/2016 Inactive Premarin 1.25 mg tablet RxNorm: 323258 1-2 Tablet(s) PO QD 02/15/20 16 03/15/2016 Inactive Klor-Con 8 mEq tablet,extended release RxNorm: 302245 T FARRUKH ONE TABLET BY MOUTH TWICE A DAY 02/15/2016 03/15/2016 Inactive potassium chloride ER 20 mEq tablet,extended release(part/cr yst) RxNorm: 143360 2 Tablet(s) PO BID 02/15/2016 03/15/2016 Inactive Macrobid 100 mg capsule RxNorm: 931840 1 Capsule(s) PO BID 01/24/20 16 01/30/2016 Inactive prednisone 20 mg tablet RxNorm: 440725 Take 3tabs PO QD x 2 days, then 2 tabs PO QD x 2 days, then 1 tab PO QD x 2 days, then 1/2 tab PO QDy x 2 days 12/23/2015 04/25/2016 Inactive Klor-Con 8 mEq tablet,extended release RxNorm: 666647 T FARRUKH ONE TABLET BY MOUTH TWICE A DAY 12/20/2015 02/14/2016 Inactive alprazolam 1 mg tablet RxNorm: 639280 1 1/2 Tablet(s) PO QHS 201501/23/2016 Inactive nystatin 100,000 unit/gram topical cream RxNorm: 058589 APPLY TO AFFECTED AREA(S) TWO TIMES A DAY 11/30/2015 12/14/2015 Inactive Singulair 10 mg tablet RxNorm: 601604 TAKE ONE TABLET BY MOUTH JOSÉ Y 11/18/2015 04/25/2016 Inactive allopurinol 300 mg tablet RxNorm: 686789 1 Tablet(s) PO QD TAKE ONE TABLET BY MOUTH EVERY DAY 10/26/2015 04/22/2016 Inactive Singulair 10 mg tablet RxNorm: 456208 TAKE ONE TABLET BY MOUTH JOSÉ Y 10/26/2015 11/17/2015 Inactive duloxetine 60 mg capsule,delayed release RxNorm: 491850 1 Capsu le(s) PO QD 10/26/2015 04/22/2016 Inactive triamterene 75 mg-hydrochlorothiazide 50 mg tablet RxNorm: 3 23210 1 Tablet(s) PO QD 10/26/2015 11/14/2016 Inactive potassium chloride ER 20 mEq tablet,extended release(part/cr yst) RxNorm: 362574 2 Tablet(s) PO BID 10/26/2015 02/14/2016 Inactive Lipitor 10 mg tablet RxNorm: 001432 1 Tablet(s) PO QHS 10/26/2015 Inactive amlodipine 5 mg-benazepril 20 mg capsule RxNorm: 997854 1 Capsule(s) PO QHS replaces amlodopine 10/26/2015 04/22/2016 Inactive Bystolic 10 mg tablet RxNorm: 240373 1 Tablet(s) PO QHS 10/26/2015 Inactive amlodipine 5 mg-benazepril 20 mg capsule RxNorm: 501534 1 Capsule(s) PO QHS replaces amlodopine 10/06/2015 10/25/2015 Inactive amlodipine 5 mg tablet RxNorm: 855958 1 Tablet(s) PO QHS 09/30/2015 0 04/25/2016 Inactive metolazone 2.5 mg tablet RxNorm: 812148 TAKE ONE TABLET BY MOUTH DAILY NEEDED FOR EDEMA 09/30/2015 01/21/2019 Inactive duloxetine 60 mg capsule,delayed release RxNorm: 808284 1 Capsu le(s) PO QD 09/30/2015 10/25/2015 Inactive cephalexin 500 mg capsule RxNorm: 989402 1 Capsule(s) PO BID 201509/23/2015 Inactive mupirocin 2 % topical ointment RxNorm: 760698 TOP twice daily to affected areas of face and neck 09/14/2015 02/20/2016 Inactive baclofen 20 mg tablet RxNorm: 870763 1 Tablet(s) PO TID as needed for muscle spasm 09/01/2015 11/14/2016 Inactive clonidine HCl 0.1 mg tablet RxNorm: 450934 1 Tablet(s) PO QID 09/0102/14/2016 Inactive alprazolam 1 mg tablet RxNorm: 557617 1 1/2 Tablet(s) PO QHS 201409/09/2015 Inactive baclofen 20 mg tablet RxNorm: 195868 1 Tablet(s) PO TID as needed for muscle spasm 07/23/2015 09/01/2015 Inactive omeprazole 40 mg capsule,delayed release RxNorm: 340240 1 Capsu le(s) PO QD 07/23/2015 04/25/2016 Inactive alprazolam 1 mg tablet RxNorm: 618874 1 1/2 Tablet(s) PO QHS 201408/10/2015 Inactive Bystolic 10 mg tablet RxNorm: 332511 1 Tablet(s) PO BID 06/24/2015 Inactive allopurinol 300 mg tablet RxNorm: 394464 1 Tablet(s) PO QD TAKE ONE TABLET BY MOUTH EVERY DAY 06/23/2015 10/20/2015 Inactive alprazolam 1 mg tablet RxNorm: 495641 1 1/2 Tablet(s) PO QHS 201407/06/2015 Inactive clonidine HCl 0.1 mg tablet RxNorm: 211112 1 Tablet(s) PO QID 06/0209/01/2015 Inactive clonidine HCl 0.1 mg tablet RxNorm: 341890 1 Tablet(s) PO QID 06/0206/01/2015 Inactive Cymbalta 60 mg capsule,delayed release RxNorm: 552969 1 Capsule (s) PO QHS 06/02/2015 08/30/2015 Inactive Cymbalta 60 mg capsule,delayed release RxNorm: 702537 1 Capsule (s) PO QHS 06/02/2015 06/01/2015 Inactive clonidine HCl 0.1 mg tablet RxNorm: 362402 1 Tablet(s) PO TID 05/3106/01/2015 Inactive replaces 0.2mg dose metolazone 2.5 mg tablet RxNorm: 288715 TAKE ONE TABLET BY MOUTH DAILY NEEDED FOR EDEMA 05/21/2015 06/19/2015 Inactive Singulair 10 mg tablet RxNorm: 866915 TAKE ONE TABLET BY MOUTH JOSÉ Y 05/21/2015 10/17/2015 Inactive Cymbalta 30 mg capsule,delayed release RxNorm: 373614 1 Capsule (s) PO QHS 05/20/2015 11/14/2016 Inactive betamethasone valerate 0.1 % topical cream RxNorm: 678776 Appli cation TOP BID 05/10/2015 04/25/2016 Inactive Bactroban 2 % topical ointment RxNorm: 214043 Application TOP BID 0 05/10/2015 06/20/2015 Inactive baclofen 20 mg tablet RxNorm: 415226 1 Tablet(s) PO TID as needed 0 04/26/2015 07/23/2015 Inactive Lipitor 10 mg tablet RxNorm: 635116 1 Tablet(s) PO QHS 04/26/201508/2016 Inactive clonidine HCl 0.1 mg tablet RxNorm: 314506 1 Tablet(s) PO TID 04/2605/30/2015 Inactive replaces 0.2mg dose Klor-Con 8 mEq tablet,extended release RxNorm: 217645 1 Tablet( s) PO BID 04/26/2015 04/25/2016 Inactive metolazone 2.5 mg tablet RxNorm: 713307 1 Tablet(s) PO QD as ne eded for edema 04/26/2015 04/25/2015 Inactive triamterene 75 mg-hydrochlorothiazide 50 mg tablet RxNorm: 3 03073 1 Tablet(s) PO QD 04/26/2015 10/22/2015 Inactive Premarin 1.25 mg tablet RxNorm: 492040 1-2 Tablet(s) PO QD 04/26/20 15 10/22/2015 Inactive Bystolic 10 mg tablet RxNorm: 971219 1 Tablet(s) PO QAM TAKE ONE TABLET BY MOUTH EVERY MORNING 04/23/2015 06/23/2015 Inactive clonidine HCl 0.1 mg tablet RxNorm: 115578 1 Tablet(s) PO TID 03/2304/25/2015 Inactive replaces 0.2mg dose nystatin 100,000 unit/gram topical cream RxNorm: 476178 Applica tion TOP BID 03/23/2015 06/20/2015 Inactive baclofen 20 mg tablet RxNorm: 349191 1 Tablet(s) PO TID as needed 0 03/23/2015 04/25/2015 Inactive Premarin 1.25 mg tablet RxNorm: 047087 1-2 Tablet(s) PO QD 03/23/20 15 04/25/2015 Inactive Klor-Con 8 mEq tablet,extended release RxNorm: 269888 1 Tablet( s) PO BID 03/23/2015 04/25/2015 Inactive cefdinir 300 mg capsule RxNorm: 353754 2 Capsule(s) PO QD 03/16/2015 03/25/2015 Inactive baclofen 20 mg tablet RxNorm: 636612 1 Tablet(s) PO TID as needed 0 03/02/2015 03/22/2015 Inactive allopurinol 300 mg tablet RxNorm: 451707 1 Tablet(s) PO QD TAKE ONE TABLET BY MOUTH EVERY DAY 02/22/2015 05/22/2015 Inactive Klor-Con M20 mEq tablet,extended release RxNorm: 368742 2 Tablet(s) PO BID to use with lasix 02/22/2015 06/20/2015 Inactive clonidine HCl 0.1 mg tablet RxNorm: 625396 1 Tablet(s) PO TID 02/1903/22/2015 Inactive replaces 0.2mg dose Lipitor 10 mg tablet RxNorm: 460636 1 Tablet(s) PO QHS 01/20/201506/2015 Inactive Lipitor 10 mg tablet RxNorm: 496016 1 Tablet(s) PO QHS 01/20/2015 Inactive Singulair 10 mg tablet RxNorm: 937240 1 Tablet(s) PO QD TAKE ONE TABLET BY MOUTH EVERY DAY 11/20/2014 05/18/2015 Inactive Lipitor 10 mg tablet RxNorm: 516838 1 Tablet(s) PO QHS 11/20/201408/2015 Inactive allopurinol 300 mg tablet RxNorm: 823427 1 Tablet(s) PO QD TAKE ONE TABLET BY MOUTH EVERY DAY 11/20/2014 02/16/2015 Inactive Bystolic 10 mg tablet RxNorm: 258200 1 Tablet(s) PO QAM TAKE ONE TABLET BY MOUTH EVERY MORNING 11/20/2014 04/22/2015 Inactive Klor-Con 8 mEq tablet,extended release RxNorm: 847717 1 Tablet( s) PO BID 11/20/2014 02/17/2015 Inactive baclofen 20 mg tablet RxNorm: 133466 1 Tablet(s) PO TID as needed 0 11/20/2014 01/21/2019 Inactive baclofen 20 mg tablet RxNorm: 622415 1 Tablet(s) PO TID as needed 0 10/27/2014 11/19/2014 Inactive baclofen 20 mg tablet RxNorm: 540196 1 Tablet(s) PO TID as needed 0 10/26/2014 03/01/2015 Inactive allopurinol 300 mg tablet RxNorm: 668887 1 Tablet(s) PO QD TAKE ONE TABLET BY MOUTH EVERY DAY 10/26/2014 11/20/2014 Inactive Bystolic 10 mg tablet RxNorm: 198668 1 Tablet(s) PO QAM TAKE ONE TABLET BY MOUTH EVERY MORNING 10/26/2014 11/20/2014 Inactive clonidine HCl 0.1 mg tablet RxNorm: 947516 1 Tablet(s) PO TID 09/2805/27/2019 Inactive replaces 0.2mg dose clonidine HCl 0.1 mg tablet RxNorm: 336247 1 Tablet(s) PO TID 09/2802/18/2015 Inactive replaces 0.2mg dose baclofen 20 mg tablet RxNorm: 862625 1 Tablet(s) PO TID as needed 1 11/01/2013 08/30/2014 Inactive Lipitor 10 mg tablet RxNorm: 489221 1 Tablet(s) PO QHS 08/31/2014 Inactive baclofen 20 mg tablet RxNorm: 590178 1 Tablet(s) PO TID as needed 1 11/01/2013 10/26/2014 Inactive triamterene 75 mg-hydrochlorothiazide 50 mg tablet RxNorm: 3 17747 1 Tablet(s) PO QD 08/31/2014 02/26/2015 Inactive Klor-Con 8 mEq tablet,extended release RxNorm: 955713 1 Tablet( s) PO BID 08/31/2014 11/20/2014 Inactive baclofen 20 mg tablet RxNorm: 875589 1 Tablet(s) PO TID as needed 1 09/30/2013 10/25/2014 Inactive baclofen 20 mg tablet RxNorm: 812983 1 Tablet(s) PO TID as needed 1 09/30/2013 08/31/2014 Inactive omeprazole 40 mg capsule,delayed release RxNorm: 643997 1 Capsu le(s) PO QD 07/21/2014 07/23/2015 Inactive Flonase 50 mcg/actuation nasal spray,suspension RxNorm: 8963 23 1 [place] NASAL BID 07/15/2014 04/09/2017 Inactive hydrocodone 10 mg-acetaminophen 325 mg tablet RxNorm: 830866 1-2 Tablet(s) QID as needed for pain TAKE ONE TO TWO TABLETS BY MOUTH FOUR TIMES A DAY . MUST LAST 30 DAYS 06/30/2014 07/27/2014 Inactive (Response to an electronic controlled substance refill request - RxReferenceNumber: [id number]) baclofen 20 mg tablet RxNorm: 512972 1 Tablet(s) PO TID as needed 1 07/31/2014 Inactive Singulair 10 mg tablet RxNorm: 273560 1 Tablet(s) PO QD TAKE ONE TABLET BY MOUTH EVERY DAY 05/25/2014 11/20/2014 Inactive Bystolic 10 mg tablet RxNorm: 932248 TAKE ONE TABLET BY MOUTH E VERY MORNING 05/25/2014 09/21/2014 Inactive allopurinol 300 mg tablet RxNorm: 471983 1 Tablet(s) PO QD TAKE ONE TABLET BY MOUTH EVERY DAY 05/25/2014 10/21/2014 Inactive baclofen 20 mg tablet RxNorm: 295379 1 Tablet(s) PO TID as needed 0 05/25/2014 06/29/2014 Inactive allopurinol 300 mg tablet RxNorm: 615337 TAKE ONE TABLET BY LOPEZ TH EVERY DAY 05/25/2014 09/21/2014 Inactive Singulair 10 mg tablet RxNorm: 079235 1 Tablet(s) PO QD TAKE ONE TABLET BY MOUTH EVERY DAY 05/25/2014 05/24/2014 Inactive Bystolic 10 mg tablet RxNorm: 261881 1 Tablet(s) PO QAM TAKE ONE TABLET BY MOUTH EVERY MORNING 05/25/2014 10/21/2014 Inactive metolazone 2.5 mg tablet RxNorm: 048962 1 Tablet(s) PO QD as ne eded for edema 05/18/2014 04/25/2015 Inactive Lasix 40 mg tablet RxNorm: 124112 1 Tablet(s) PO RAZA ramirez take potassium supplementation with this medication 05/14/2014 05/17/2014 Inactive hydrocodone 10 mg-acetaminophen 325 mg tablet RxNorm: 298743 1-2 Tablet(s) QID as needed for pain TAKE ONE TO TWO TABLETS BY MOUTH FOUR TIMES A DAY . MUST LAST 30 DAYS 05/07/2014 06/05/2014 Inactive (Response to an electronic controlled substance refill request - RxReferenceNumber: [id number]) alprazolam 0.5 mg tablet RxNorm: 844799 TAKE ONE TABLET BY MOUTH TWICE A DAY , MUST LAST 30 DAYS 05/07/2014 05/22/2016 Inactive (Response to a n electronic controlled substance refill request - RxReferenceNumber: [id number]) diclofenac sodium 75 mg tablet,delayed release RxNorm: 34368 6 1 Tablet(s) PO BID for pain 04/24/2014 07/20/2014 Inactive Celebrex 200 mg capsule RxNorm: 405391 TAKE ONE CAPSULE BY MOUT H EVERY DAY 04/24/2014 07/20/2014 Inactive alprazolam 0.5 mg tablet RxNorm: 804753 TAKE ONE TABLET BY MOUTH TWICE A DAY , MUST LAST 30 DAYS 03/24/2014 04/22/2014 Inactive (Response to a n electronic controlled substance refill request - RxReferenceNumber: [id number]) diclofenac sodium 75 mg tablet,delayed release RxNorm: 74880 6 1 Tablet(s) PO BID for pain 03/24/2014 04/24/2014 Inactive clonidine HCl 0.1 mg tablet RxNorm: 013542 1 Tablet(s) PO TID 03/2409/28/2014 Inactive replaces 0.2mg dose Klor-Con 8 mEq tablet,extended release RxNorm: 710437 1 Tablet( s) PO BID 02/26/2014 08/31/2014 Inactive diclofenac sodium 75 mg tablet,delayed release RxNorm: 10080 6 1 Tablet(s) PO BID for pain 02/25/2014 03/24/2014 Inactive hydrocodone 10 mg-acetaminophen 325 mg tablet RxNorm: 670875 1-2 Tablet(s) QID as needed for pain TAKE ONE TO TWO TABLETS BY MOUTH FOUR TIMES A DAY . MUST LAST 30 DAYS 02/25/2014 03/26/2014 Inactive (Response to an electronic controlled substance refill request - RxReferenceNumber: [id number]) alprazolam 0.5 mg tablet RxNorm: 420794 Tablet(s) PO BI D as needed for anxiety TAKE ONE TABLET BY MOUTH TWICE A DAY , MUST LAST 30 DAYS 02/25/2014 Inactive (Response to an electronic controlled [place] bstance refill request - RxReferenceNumber: [id number]) [AttnRPh: Saving apply/adjudicate RxGRP:[id number] RxBIN:[id number] RxPCN: ID#:[id number]] alprazolam 0.5 mg tablet RxNorm: 602039 Tablet(s) TAKE ONE TABLET BY MOUTH TWICE A DAY , MUST LAST 30 DAYS 01/27/2014 02/24/2014 Inactive (Respo nse to an electronic controlled substance refill request - RxReferenceNumber: [id number]) [AttnRPh: Saving apply/adjudicate RxGRP:[id number] RxBIN:[id number] RxPCN: ID#:[id number]] hydrocodone 10 mg-acetaminophen 325 mg tablet RxNorm: 285873 1-2 Tablet(s) QID as needed for pain TAKE ONE TO TWO TABLETS BY MOUTH FOUR TIMES A DAY . MUST LAST 30 DAYS 01/27/2014 02/24/2014 Inactive (Response to an electronic controlled substance refill request - RxReferenceNumber: [id number]) alprazolam 0.5 mg tablet RxNorm: 344216 TAKE ONE TABLET BY MOUTH TWICE A DAY , MUST LAST 30 DAYS 01/27/2014 01/26/2014 Inactive (Response to a n electronic controlled substance refill request - RxReferenceNumber: [id number]) Premarin 1.25 mg tablet RxNorm: 396571 1-2 Tablet(s) PO QD 01/28/20 14 07/25/2014 Inactive alprazolam 0.5 mg tablet RxNorm: 722709 TAKE ONE TABLET BY MOUTH TWICE A DAY , MUST LAST 30 DAYS 01/27/2014 01/27/2014 Inactive (Response to a n electronic controlled substance refill request - RxReferenceNumber: [id number]) hydrocodone 10 mg-acetaminophen 325 mg tablet RxNorm: 198700 TAKE ONE TO TWO TABLETS BY MOUTH FOUR TIMES A DAY . MUST LAST 30 DAYS 01/27/20142013 Inactive (Response to an electronic controlled [place] bstance refill request - RxReferenceNumber: [id number]) Celebrex 200 mg capsule RxNorm: 065364 1 Capsule(s) PO QD TAKE ONE CAPSULE BY MOUTH EVERY DAY 12/29/2013 04/27/2014 Inactive hydrocodone 10 mg-acetaminophen 325 mg tablet RxNorm: 938428 1-2 Tablet(s) PO QID as needed for severe pain 12/29/2013 01/27/2014 Inactive allopurinol 300 mg tablet RxNorm: 729664 1 Tablet(s) PO QD TAKE ONE TABLET BY MOUTH EVERY DAY 12/29/2013 05/24/2014 Inactive alprazolam 0.5 mg tablet RxNorm: 391457 TAKE ONE TABLET BY MOUTH TWICE A DAY , MUST LAST 30 DAYS 12/29/2013 01/27/2014 Inactive (Response to a n electronic controlled substance refill request - RxReferenceNumber: [id number]) Celebrex 200 mg capsule RxNorm: 833076 1 Capsule(s) PO QD TAKE ONE CAPSULE BY MOUTH EVERY DAY 12/29/2013 12/29/2013 Inactive Bystolic 10 mg tablet RxNorm: 216228 1 Tablet(s) PO QAM TAKE ONE TABLET BY MOUTH EVERY MORNING 12/29/2013 05/24/2014 Inactive Bystolic 10 mg tablet RxNorm: 197726 1 Tablet(s) PO QAM TAKE ONE TABLET BY MOUTH EVERY MORNING 12/29/2013 12/29/2013 Inactive Singulair 10 mg tablet RxNorm: 648559 1 Tablet(s) PO QD TAKE ONE TABLET BY MOUTH EVERY DAY 12/29/2013 05/25/2014 Inactive hydrocodone 10 mg-acetaminophen 325 mg tablet RxNorm: 367246 TAKE ONE TO TWO TABLETS BY MOUTH FOUR TIMES A DAY . MUST LAST 30 DAYS 12/29/20132013 Inactive (Response to an electronic controlled [place] bstance refill request - RxReferenceNumber: [id number]) Trazadone 75mg Tablet RxNorm: 1 Tablet(s) PO QHS as needed 03/23/2014 Inactive Trazadone 75mg Tablet RxNorm: 1 Tablet(s) PO QHS 12/24/20132014 Inactive Soma 350 mg tablet RxNorm: 841857 Tablet(s) PO TAKE ON E TABLET BY MOUTH THREE TIMES A DAY NEEDED FOR MUSCLE SPASMS. THIS MUST LAST 30 DAYS BETWEEN REFILLS. 12/10/2013 12/22/2013 Inactive (Appended: Cont rolled substance eRx refill - RxReferenceNumber: [id number]) diclofenac sodium 75 mg tablet,delayed release RxNorm: 17118 6 1 Tablet(s) PO BID for pain 12/10/2013 02/24/2014 Inactive allopurinol 300 mg tablet RxNorm: 087060 1 Tablet(s) PO QD 11/20/19 14 12/29/2013 Inactive alprazolam 0.5 mg tablet RxNorm: 286983 2 Tablet(s) PO BID 11/13/19 14 12/29/2013 Inactive prn clonidine 0.1 mg tablet RxNorm: 573192 1 Tablet(s) PO TID 11/12/2013 02/09/2014 Inactive replaces 0.2mg dose Klor-Con M20 mEq tablet,extended release RxNorm: 758608 2 Tablet(s) PO BID to use with lasix 11/12/2013 05/10/2014 Inactive Singulair 10 mg tablet RxNorm: 081143 1 Tablet(s) PO QD 11/12/2013 Inactive hydrocodone 10 mg-acetaminophen 325 mg tablet RxNorm: 113383 1-2 Tablet(s) PO QID as needed for severe pain 11/12/2013 12/28/2013 Inactive Bystolic 10 mg tablet RxNorm: 374214 1 Tablet(s) PO QAM 11/12/2013 Inactive Soma 350 mg tablet RxNorm: 230685 Tablet(s) PO TAKE ON E TABLET BY MOUTH THREE TIMES A DAY NEEDED FOR MUSCLE SPASMS. THIS MUST LAST 30 DAYS BETWEEN REFILLS. 10/13/2013 12/10/2013 Inactive (Appended: Cont rolled substance eRx refill - RxReferenceNumber: [id number]) hydrocodone 10 mg-acetaminophen 325 mg tablet RxNorm: 655084 1-2 Tablet(s) PO QID as needed for severe pain 10/03/2013 11/11/2013 Inactive diclofenac sodium 75 mg tablet,delayed release RxNorm: 81991 8 1 Tablet(s) PO BID for pain 09/11/2013 12/10/2013 Inactive alprazolam 0.5 mg tablet RxNorm: 797127 1 Tablet(s) PO BID May refill on 04/26/13 09/01/2013 10/30/2013 Inactive prn hydrocodone 10 mg-acetaminophen 325 mg tablet RxNorm: 451488 1-2 Tablet(s) PO QID as needed for severe pain 09/01/2013 10/02/2013 Inactive triamterene 75 mg-hydrochlorothiazide 50 mg tablet RxNorm: 3 69343 1 Tablet(s) PO QD 08/04/2013 08/31/2014 Inactive cyclobenzaprine 10 mg tablet RxNorm: 545934 1 Tablet(s) PO TID prn spasm 08/04/2013 08/13/2013 Inactive clonidine 0.1 mg tablet RxNorm: 224753 1 Tablet(s) PO TID 08/04/2013 11/11/2013 Inactive replaces 0.2mg dose cyclobenzaprine 10 mg tablet RxNorm: 506224 1 Tablet(s) PO TID prn spasm 07/23/2013 08/01/2013 Inactive hydrocodone 10 mg-acetaminophen 325 mg tablet RxNorm: 367551 2 1-2 Tablet(s) PO QID as needed for severe pain 06/09/2013 08/07/2013 Inactive Singulair 10 mg tablet RxNorm: 257893 1 Tablet(s) PO QD 05/29/2013 Inactive Klor-Con 8 mEq tablet,extended release RxNorm: 989623 1 Tablet( s) PO BID 05/29/2013 02/26/2014 Inactive allopurinol 300 mg tablet RxNorm: 315298 1 Tablet(s) PO QD 05/29/20 13 11/19/2013 Inactive Bystolic 10 mg tablet RxNorm: 005782 1 Tablet(s) PO QAM take one daily in the morning. 05/29/2013 11/11/2013 Inactive scopolamine 1.5 mg 72 hr Transderm Patch RxNorm: 937097 Application TD Q72H for motion sickness 05/26/2013 07/22/2013 Inactive Soma 350 mg tablet RxNorm: 716033 1 Tablet(s) PO TID as needed for spasm 05/19/2013 10/13/2013 Inactive diclofenac sodium 75 mg tablet,delayed release RxNorm: 86237 8 1 Tablet(s) PO BID for pain 05/14/2013 07/22/2013 Inactive allopurinol 300 mg tablet RxNorm: 360334 1 Tablet(s) PO QD 04/25/20 13 05/28/2013 Inactive alprazolam 0.5 mg tablet RxNorm: 536157 1 Tablet(s) PO BID May refill on 04/26/13 04/25/2013 06/23/2013 Inactive prn Celebrex 200 mg capsule RxNorm: 898231 1 Capsule(s) PO QD 04/16/2013 12/29/2013 Inactive alprazolam 0.5 mg tablet RxNorm: 888737 1 Tablet(s) PO BID May refill on 04/26/13 04/16/2013 04/24/2013 Inactive prn Soma 350 mg tablet RxNorm: 280215 1 Tablet(s) PO TID as needed for spasm 04/16/2013 No Stop Date Active Lasix 40 mg tablet RxNorm: 340204 1 Tablet(s) PO QAM s hould take potassium supplementation with this medication 04/16/2013 06/14/2013 Inactive clonidine 0.1 mg tablet RxNorm: 963136 1 Tablet(s) PO TID 04/16/2013 08/03/2013 Inactive replaces 0.2mg dose prednisone 20 mg tablet RxNorm: 235308 1 Tablet(s) PO BID 04/16/2013 04/20/2013 Inactive diclofenac sodium 75 mg tablet,delayed release RxNorm: 34791 8 1 Tablet(s) PO BID for pain 04/14/2013 05/13/2013 Inactive hydrocodone 10 mg-acetaminophen 325 mg tablet RxNorm: 392457 2 1-2 Tablet(s) PO QID as needed for severe pain 04/14/2013 No Stop Date Active Lasix 40 mg tablet RxNorm: 447436 1 Tablet(s) PO QAM s hould take potassium supplementation with this medication 03/31/2013 04/15/2013 Inactive Celebrex 200 mg capsule RxNorm: 555942 1 Capsule(s) PO QD 03/31/2013 04/15/2013 Inactive alprazolam 0.5 mg tablet RxNorm: 816092 1 Tablet(s) PO BID 03/28/20 13 04/15/2013 Inactive prn hydrocodone 10 mg-acetaminophen 325 mg tablet RxNorm: 474846 2 1-2 Tablet(s) PO QID as needed for severe pain 03/10/2013 No Stop Date Active metformin ER 500 mg 24 hr tablet,extended release RxNorm: 86 1018 1 Tablet(s) PO QD 03/06/2013 07/22/2013 Inactive clindamycin 300 mg capsule RxNorm: 783281 2 Capsule(s) PO TID 03/0503/14/2013 Inactive Zaroxolyn 2.5 mg tablet RxNorm: 235394 1 Tablet(s) PO QAM 03/05/2013 05/19/2015 Inactive amlodipine 10 mg tablet RxNorm: 124882 1 Tablet(s) PO QD 03/03/2013 0 05/25/2013 Inactive Norvasc 10 mg tablet RxNorm: 139480 1 Tablet(s) PO QD 02/28/201307/11 Inactive Celebrex 200 mg capsule RxNorm: 550323 1 Capsule(s) PO QD 02/28/2013 03/30/2013 Inactive diclofenac sodium 75 mg tablet,delayed release RxNorm: 79394 8 1 Tablet(s) PO BID for pain 02/14/2013 03/15/2013 Inactive Soma 350 mg tablet RxNorm: 141486 1 Tablet(s) PO TID as needed for spasm 02/14/2013 No Stop Date Active hydrocodone 10 mg-acetaminophen 325 mg tablet RxNorm: 600627 2 1-2 Tablet(s) PO QID as needed for severe pain 02/14/2013 No Stop Date Active Norvasc 10 mg tablet RxNorm: 538780 1 Tablet(s) PO QD 02/10/201302/09 Inactive Celebrex 200 mg capsule RxNorm: 674815 1 Capsule(s) PO QD 01/27/2013 01/26/2013 Inactive Premarin 1.25 mg tablet RxNorm: 895341 1-2 Tablet(s) PO QD 01/28/20 13 06/25/2013 Inactive alprazolam 0.5 mg tablet RxNorm: 852958 1 Tablet(s) PO BID 01/28/20 13 02/25/2013 Inactive prn amlodipine 5 mg tablet RxNorm: 664049 1 Tablet(s) PO QD 01/27/2013 Inactive Celebrex 200 mg capsule RxNorm: 265447 1 Capsule(s) PO QD 01/27/2013 02/27/2013 Inactive gabapentin 600 mg tablet RxNorm: 122369 1 Tablet(s) PO QHS 01/16/20 13 07/22/2013 Inactive Soma 350 mg tablet RxNorm: 538326 1 Tablet(s) PO TID as needed for spasm 01/15/2013 No Stop Date Active hydrocodone 10 mg-acetaminophen 325 mg tablet RxNorm: 081683 2 1-2 Tablet(s) PO QID as needed for severe pain 01/15/2013 No Stop Date Active Soma 350 mg tablet RxNorm: 635281 1 Tablet(s) PO TID as needed for spasm 01/13/2013 No Stop Date Active alprazolam 0.5 mg tablet RxNorm: 251515 1 Tablet(s) PO BID 12/31/19 13 01/26/2013 Inactive prn diclofenac sodium 75 mg tablet,delayed release RxNorm: 49470 8 1 Tablet(s) PO BID for pain 12/09/2012 01/07/2013 Inactive gabapentin 600 mg tablet RxNorm: 472177 1 Tablet(s) PO QHS 12/10/19 13 01/07/2013 Inactive hydrocodone 10 mg-acetaminophen 325 mg tablet RxNorm: 689003 2 1-2 Tablet(s) PO QID as needed for severe pain 12/02/2012 No Stop Date Active Levaquin 750 mg tablet RxNorm: 356615 1 Tablet(s) PO QD 11/21/2012 Inactive Singulair 10 mg tablet RxNorm: 564850 1 Tablet(s) PO QD 11/11/2012 Inactive clonidine 0.2 mg tablet RxNorm: 833955 1 Tablet(s) PO TID 11/11/2012 04/15/2013 Inactive alprazolam 0.5 mg tablet RxNorm: 432235 1 Tablet(s) PO BID 11/12/19 13 12/10/2012 Inactive prn Klor-Con 8 mEq tablet,extended release RxNorm: 736202 1 Tablet( s) PO BID 11/11/2012 03/04/2013 Inactive hydrocodone 10 mg-acetaminophen 325 mg tablet RxNorm: 821733 2 1-2 Tablet(s) PO QID as needed for severe pain 11/06/2012 No Stop Date Active alprazolam 0.5 mg tablet RxNorm: 407413 1 Tablet(s) PO BID 10/15/19 13 11/10/2012 Inactive prn hydrocodone-acetaminophen 10 mg-325 mg tablet RxNorm: 961963 2 1-2 Tablet(s) PO QID as needed for severe pain 10/10/2012 10/09/2012 Inactive allopurinol 300 mg tablet RxNorm: 500028 1 Tablet(s) PO QD 09/20/19 13 12/18/2012 Inactive alprazolam 0.5 mg tablet RxNorm: 493878 1 Tablet(s) PO BID 09/17/19 13 10/14/2012 Inactive prn hydrocodone-acetaminophen 10 mg-325 mg tablet RxNorm: 205669 2 1-2 Tablet(s) PO QID as needed for severe pain 08/22/2012 08/21/2012 Inactive Norvasc 10 mg tablet RxNorm: 114643 1 Tablet(s) PO QD 08/12/201201/10 Inactive Premarin 1.25 mg tablet RxNorm: 806186 1-2 Tablet(s) PO QD 07/30/20 12 12/26/2012 Inactive alprazolam 0.5 mg tablet RxNorm: 066548 1 Tablet(s) PO BID 07/29/20 12 08/27/2012 Inactive prn Klor-Con 8 mEq tablet,extended release RxNorm: 882551 1 Tablet( s) PO BID 07/29/2012 11/10/2012 Inactive hydrocodone-acetaminophen 10 mg-325 mg tablet RxNorm: 930293 2 1-2 Tablet(s) PO QID as needed for severe pain 07/29/2012 No Stop Date Active Premarin 1.25 mg tablet RxNorm: 654349 1-2 Tablet(s) PO QD 07/29/20 12 07/29/2012 Inactive clonidine 0.2 mg tablet RxNorm: 954053 1 Tablet(s) PO TID 07/29/2012 10/28/2012 Inactive ketorolac 10 mg tablet RxNorm: 557964 1 Tablet(s) PO QID prn mitul leonardche 07/18/2012 No Stop Date Active hydrocodone-acetaminophen 10 mg-325 mg tablet RxNorm: 295973 2 1-2 Tablet(s) PO QID as needed for severe pain 07/03/2012 No Stop Date Active amlodipine 5 mg tablet RxNorm: 440711 1 Tablet(s) PO QD 07/02/2012 Inactive allopurinol 300 mg tablet RxNorm: 194989 1 Tablet(s) PO QD 07/02/2009/19/2012 Inactive Celebrex 200 mg capsule RxNorm: 182831 1 Capsule(s) PO QD for j oint pain 06/26/2012 10/23/2012 Inactive diclofenac sodium 75 mg tablet,delayed release RxNorm: 09586 8 1 Tablet(s) PO BID for pain 06/19/2012 09/16/2012 Inactive hydrocodone-acetaminophen 10 mg-325 mg tablet RxNorm: 195535 2 1-2 Tablet(s) PO QID as needed for severe pain 06/10/2012 No Stop Date Active alprazolam 0.5 mg tablet RxNorm: 818505 1 Tablet(s) PO BID 06/03/20 12 07/02/2012 Inactive prn ketorolac 10 mg tablet RxNorm: 604705 1 Tablet(s) PO Q8H 05/27/2012 0 01/21/2019 Inactive as needed for headache hydrocodone-acetaminophen 10 mg-325 mg tablet RxNorm: 193156 2 1-2 Tablet(s) PO QID as needed for severe pain 05/15/2012 No Stop Date Active allopurinol 300 mg tablet RxNorm: 333764 1 Tablet(s) PO QD 05/14/2006/12/2012 Inactive allopurinol 300 mg tablet RxNorm: 263118 1 Tablet(s) PO QD 05/14/20 12 05/13/2012 Inactive amlodipine 5 mg tablet RxNorm: 634625 1 Tablet(s) PO QD 05/01/2012 Inactive amlodipine 5 mg Tab RxNorm: 205233 1 Tablet(s) PO QD 05/01/201204/30 Inactive Celebrex 200 mg capsule RxNorm: 637615 1 Capsule(s) PO QD for j oint pain 05/01/2012 06/25/2012 Inactive Singulair 10 mg tablet RxNorm: 500717 1 Tablet(s) PO QD 05/01/2012 Inactive alprazolam 0.5 mg tablet RxNorm: 836269 1 Tablet(s) PO BID 05/01/2005/30/2012 Inactive prn Celebrex 200 mg Cap RxNorm: 320983 1 Capsule(s) PO QD for joint radu n 05/01/2012 04/30/2012 Inactive hydrocodone-acetaminophen 10 mg-325 mg tablet RxNorm: 281799 2 1-2 Tablet(s) PO QID as needed for severe pain 04/19/2012 No Stop Date Active Lasix 40 mg tablet RxNorm: 335164 1 Tablet(s) PO RAZA alan ashley take potassium supplementation with this medication 04/05/2012 06/03/2012 Inactive alprazolam 0.5 mg Tab RxNorm: 612371 1 Tablet(s) PO BID 04/05/2012 Inactive prn hydrocodone-acetaminophen 10 mg-325 mg Tab RxNorm: 4401700 1-2 Tablet(s) PO QID as needed for severe pain 03/25/2012 03/24/2012 Inactive clonidine 0.2 mg Tab RxNorm: 305067 1 Tablet(s) PO TID 03/08/2012 Inactive alprazolam 0.5 mg Tab RxNorm: 181081 1 Tablet(s) PO BID 03/08/2012 Inactive prn Soma 350 mg tablet RxNorm: 693374 1 Tablet(s) PO TID for spasm 02/0903/18/2012 Inactive clonidine 0.2 mg tablet RxNorm: 181607 1 Tablet(s) PO TID 03/08/2012 07/28/2012 Inactive Celebrex 200 mg Cap RxNorm: 876685 1 Capsule(s) PO QD for joint radu n 03/01/2012 04/29/2012 Inactive amlodipine 5 mg Tab RxNorm: 284266 1 Tablet(s) PO QD 02/26/201202/24 Inactive amlodipine 5 mg Tab RxNorm: 626832 1 Tablet(s) PO QD 02/26/201204/25 Inactive Bactroban 2 % Ointment RxNorm: 851113 Application TOP QID to sores 02/23/2012 No Stop Date Active amlodipine 2.5 mg tablet RxNorm: 748093 1 Tablet(s) PO QHS 02/20/20 12 02/25/2012 Inactive doxycycline hyclate 100 mg Cap RxNorm: 0441851 1 Capsule(s) PO BID 02/20/2012 02/29/2012 Inactive hydrocodone-acetaminophen 10 mg-325 mg Tab RxNorm: 3723983 1-2 T ablet(s) PO QID 02/08/2012 No Stop Date Active alprazolam 0.5 mg Tab RxNorm: 451136 1 Tablet(s) PO BID 02/08/2012 Inactive prn Singulair 10 mg Tab RxNorm: 121364 1 Tablet(s) PO QD 02/08/201204/30 Inactive Soma 350 mg Tab RxNorm: 061242 1 Tablet(s) PO TID for spasm 012 03/07/2012 Inactive Soma 350 mg Tab RxNorm: 214215 1 Tablet(s) PO TID for spasm 012 02/05/2012 Inactive diclofenac sodium 75 mg tablet,delayed release RxNorm: 69025 8 1 Tablet(s) PO BID for pain 02/01/2012 03/18/2012 Inactive Celebrex 200 mg Cap RxNorm: 455164 1 Capsule(s) PO QD for joint radu n 01/30/2012 02/28/2012 Inactive Lasix 40 mg Tab RxNorm: 924481 1 Tablet(s) PO QAM 01/24/2012 03/18/20 12 Inactive potassium chloride ER 20 mEq tablet,extended release(part/cr yst) RxNorm: 851422 2 Tablet(s) PO BID 01/24/2012 02/22/2012 Inactive alprazolam 0.5 mg Tab RxNorm: 857196 1 Tablet(s) PO BID 01/11/2012 Inactive prn hydrocodone-acetaminophen 10 mg-325 mg Tab RxNorm: 0584218 1-2 T ablet(s) PO QID 01/11/2012 No Stop Date Active Ambien 10 mg Tab RxNorm: 544668 1 Tablet(s) PO QHS 01/11/2012 012 Inactive Klor-Con 8 mEq Tab RxNorm: 072902 1 Tablet(s) PO BID 01/11/201201/22 Inactive diclofenac sodium 75 mg Tab, Delayed Release RxNorm: 024051 1 Tablet(s) PO BID for pain 01/10/2012 01/31/2012 Inactive Ambien 10 mg Tab RxNorm: 039752 1 Tablet(s) PO QHS 12/11/2011 012 Inactive alprazolam 0.5 mg Tab RxNorm: 867790 1 Tablet(s) PO BID 12/11/2011 Inactive prn hydrocodone 10 mg-acetaminophen 325 mg tablet RxNorm: 129916 1-2 Tablet(s) PO TID 11/28/2011 No Stop Date Active as needed for pa in - Previous quantity #240, will start dosing for #180 in April 2011 per Doctor Td. Ambien 10 mg Tab RxNorm: 733532 1 Tablet(s) PO QHS 11/09/2011 012 Inactive alprazolam 0.5 mg Tab RxNorm: 519001 1 Tablet(s) PO BID 11/09/2011 Inactive prn hydrocodone-acetaminophen 10 mg-325 mg Tab RxNorm: 5766078 1-2 T ablet(s) PO TID 11/06/2011 No Stop Date Active as needed for pain - Previous quantity #240, will start dosing for #180 in April 2011 per Doctor Td. Singulair 10 mg Tab RxNorm: 883415 1 Tablet(s) PO QD 10/13/201110/12 Inactive Singulair 10 mg Tab RxNorm: 105254 1 Tablet(s) PO QD 10/13/201102/06 Inactive hydrocodone-acetaminophen 10 mg-325 mg Tab RxNorm: 4708576 1-2 T ablet(s) PO TID 10/10/2011 10/09/2011 Inactive as needed for pain - Previous quantity #240, will start dosing for #180 in April 2011 per Doctor Td. hydrocodone-acetaminophen 10 mg-325 mg Tab RxNorm: 2798909 1-2 T ablet(s) PO TID 10/09/2011 No Stop Date Active as needed for pain - Previous quantity #240, will start dosing for #180 in April 2011 per Doctor Td. Klor-Con 8 mEq Tab RxNorm: 704410 1 Tablet(s) PO BID 10/02/201101/09 Inactive triamterene 75 mg-hydrochlorothiazide 50 mg tablet RxNorm: 3 01154 1 Tablet(s) PO QD 09/14/2011 03/06/2013 Inactive Ambien 10 mg Tab RxNorm: 718439 1 Tablet(s) PO QHS 09/14/2011 012 Inactive hydrocodone-acetaminophen 10 mg-325 mg Tab RxNorm: 7504968 1-2 T ablet(s) PO TID 09/14/2011 No Stop Date Active as needed for pain - Previous quantity #240, will start dosing for #180 in April 2011 per Doctor Td. alprazolam 0.5 mg Tab RxNorm: 111981 1 Tablet(s) PO BID 09/14/2011 Inactive prn Zithromax 500 mg Tab RxNorm: 9161824 1 Tablet(s) PO QD 09/13/201106/2012 Inactive prednisone 20 mg Tab RxNorm: 384053 1 Tablet(s) PO BID 08/31/2011 Inactive Ambien 10 mg Tab RxNorm: 975751 1 Tablet(s) PO QHS 08/17/2011 011 Inactive hydrocodone-acetaminophen 10 mg-325 mg Tab RxNorm: 0033455 1-2 T ablet(s) PO TID 08/17/2011 No Stop Date Active as needed for pain - Previous quantity #240, will start dosing for #180 in April 2011 per Doctor Td. clonidine 0.2 mg Tab RxNorm: 384900 1 Tablet(s) PO TID 08/17/201112/2011 Inactive Ambien 10 mg Tab RxNorm: 363527 1 Tablet(s) PO QHS 08/17/2011 019 Inactive alprazolam 0.5 mg Tab RxNorm: 811543 1 Tablet(s) PO BID 08/17/2011 Inactive prn hydrocodone-acetaminophen 10 mg-325 mg Tab RxNorm: 8014862 1-2 T ablet(s) PO TID 08/17/2011 08/16/2011 Inactive as needed for pain - Previous quantity #240, will start dosing for #180 in April 2011 per Doctor Td. Singulair 10 mg Tab RxNorm: 592592 1 Tablet(s) PO QD 08/17/201108/16 Inactive Klor-Con 8 mEq Tab RxNorm: 489089 1 Tablet(s) PO QD 08/17/20112011 Inactive alprazolam 0.5 mg Tab RxNorm: 915418 1 Tablet(s) PO BID 07/20/2011 Inactive prn Ambien 10 mg Tab RxNorm: 341155 1 Tablet(s) PO QHS 07/20/2011 012 Inactive Singulair 10 mg Tab RxNorm: 090028 1 Tablet(s) PO QD 07/20/201107/19 Inactive Premarin 1.25 mg tablet RxNorm: 326665 2 Tablet(s) PO QD 07/20/2011 0 01/21/2019 Inactive Premarin 1.25 mg tablet RxNorm: 338532 1-2 Tablet(s) PO QD 07/20/20 11 12/16/2011 Inactive Premarin 1.25 mg Tab RxNorm: 690363 1-2 Tablet(s) PO QD 07/06/2011 Inactive alprazolam 0.5 mg Tab RxNorm: 233809 1 Tablet(s) PO BID 06/22/2011 Inactive prn alprazolam 0.5 mg Tab RxNorm: 304732 1 Tablet(s) PO BID 06/22/2011 Inactive prn Premarin 1.25 mg Tab RxNorm: 088255 1 Tablet(s) PO QD m ay do 90 day fill if desired 06/22/2011 07/05/2011 Inactive hydrocodone-acetaminophen 10 mg-325 mg Tab RxNorm: 9866424 1-2 T ablet(s) PO TID 06/22/2011 No Stop Date Active as needed for pain - Previous quantity #240, will start dosing for #180 in April 2011 per Doctor Td. clonidine 0.2 mg Tab RxNorm: 828913 1 Tablet(s) PO TID 05/25/201103/2011 Inactive triamterene-hydrochlorothiazide 75 mg-50 mg Tab RxNorm: 3108 18 1 Tablet(s) PO QD 05/25/2011 09/13/2011 Inactive alprazolam 0.5 mg Tab RxNorm: 071042 1 Tablet(s) PO BID 05/25/2011 Inactive prn hydrocodone-acetaminophen 10 mg-325 mg Tab RxNorm: 8481790 1-2 T ablet(s) PO TID 05/25/2011 No Stop Date Active as needed for pain - Previous quantity #240, will start dosing for #180 in April 2011 per Doctor Td. Robaxin-750 750 mg Tab RxNorm: 962064 2 Tablet(s) PO QHS 05/22/2011 1 Inactive prn spasm hydrocodone-acetaminophen 10 mg-325 mg Tab RxNorm: 6601769 1-2 T ablet(s) PO TID 04/26/2011 No Stop Date Active as needed for pain - Previous quantity #240, will start dosing for #180 in April 2011 per Doctor Td. alprazolam 0.5 mg Tab RxNorm: 344986 1 Tablet(s) PO BID 04/25/2011 Inactive prn Klor-Con 8 mEq Tab RxNorm: 203703 1 Tablet(s) PO QD 03/30/20112010 Inactive Klor-Con 8 mEq Tab RxNorm: 486608 1 Tablet(s) PO QD 03/29/20112010 Inactive hydrocodone-acetaminophen 10 mg-325 mg Tab RxNorm: 2147846 1-2 T ablet(s) PO TID 03/20/2011 04/25/2011 Inactive as needed for pain - Previous quantity #240, will start dosing for #180 in April 2011 per Doctor Td. alprazolam 0.5 mg Tab RxNorm: 722762 1 Tablet(s) PO BID prn 011 03/30/2011 Inactive Ambien 10 mg Tab RxNorm: 300477 1 Tablet(s) PO QHS 03/01/2011 011 Inactive cyclobenzaprine 10 mg Tab RxNorm: 545103 1 Tablet(s) PO TID 011 03/18/2012 Inactive cyclobenzaprine 10 mg Tab RxNorm: 499411 1 Tablet(s) PO TID 011 01/08/2011 Inactive cyclobenzaprine 10 mg Tab RxNorm: 282573 1 Tablet(s) PO TID 011 12/20/2010 Inactive terbinafine 250 mg Tab RxNorm: 743883 1 Tablet(s) PO QD 12/12/2010 Inactive triamterene-hydrochlorothiazide 75 mg-50 mg Tab RxNorm: 3108 18 1 Tablet(s) PO QD 12/07/2010 06/04/2011 Inactive Klor-Con 8 8 mEq Tab RxNorm: 546870 1 Tablet(s) PO QD 12/07/201001/08 Inactive Premarin 1.25 mg Tab RxNorm: 184792 2 Tablet(s) PO QD 12/07/201001/08 Inactive clonidine 0.2 mg Tab RxNorm: 423117 1 Tablet(s) PO TID 12/07/2010 Inactive hydrocodone-acetaminophen 7.5 mg-650 mg Tab RxNorm: 055638 1 Ta blet(s) PO Q4H 12/05/2010 01/21/2019 Inactive hydrocodone-acetaminophen 7.5 mg-650 mg Tab RxNorm: 987301 1 Ta blet(s) PO Q4H 10/26/2010 11/14/2010 Inactive hydrocodone-acetaminophen 7.5 mg-650 mg Tab RxNorm: 460725 1 Ta blet(s) PO Q4H 10/13/2010 10/25/2010 Inactive hydrocodone-acetaminophen 7.5 mg-650 mg Tab RxNorm: 873296 1 Ta blet(s) PO Q4H 09/15/2010 09/12/2010 Inactive alprazolam 0.5 mg Tab RxNorm: 567251 1 Tablet(s) PO BID prn 011 09/12/2010 Inactive terbinafine 250 mg Tab RxNorm: 799473 1 Tablet(s) PO QD 09/05/2010 Inactive hydrocodone-acetaminophen 7.5 mg-650 mg Tab RxNorm: 573423 1 Ta blet(s) PO Q4H 08/29/2010 09/17/2010 Inactive alprazolam 0.5 mg Tab RxNorm: 012272 1 Tablet(s) PO BID prn 010 09/27/2010 Inactive alprazolam 0.5 mg Tab RxNorm: 203087 1 Tablet(s) PO BID prn 09/06/2010 Inactive Klor-Con 8 mEq Tab RxNorm: 532848 1 Tablet(s) PO QD 08/08/20102010 Inactive hydrocodone-acetaminophen 7.5 mg-650 mg Tab RxNorm: 464254 1 Ta blet(s) PO Q4H 08/08/2010 08/27/2010 Inactive Ambien 10 mg Tab RxNorm: 607771 1 Tablet(s) PO QHS 08/08/2010 Inactive clonidine 0.2 mg Tab RxNorm: 257561 1 Tablet(s) PO TID 08/08/2010 Inactive Premarin 1.25 mg Tab RxNorm: 647917 2 Tablet(s) PO QD 08/08/201009/12 Inactive Ambien 10 mg Tab RxNorm: 827505 1 Tablet(s) PO QHS 07/18/2010 Inactive alprazolam 0.5 mg Tab RxNorm: 083962 1 Tablet(s) PO BID prn 08/07/2010 Inactive hydrocodone-acetaminophen 7.5 mg-650 mg Tab RxNorm: 974224 1 Ta blet(s) PO Q4H 07/12/2010 07/31/2010 Inactive clonidine 0.2 mg Tab RxNorm: 661078 1 Tablet(s) PO TID 06/20/2010 Inactive terbinafine 250 mg Tab RxNorm: 379561 1 Tablet(s) PO QD 05/24/2010 Inactive Clonidine 0.2 mg Tab RxNorm: 568430 1 Tablet(s) PO TID 05/24/201006/2010 Inactive Ambien 10 mg Tab RxNorm: 476670 1 Tablet(s) PO QHS 05/24/2010 010 Inactive alprazolam 0.5 mg Tab RxNorm: 676403 1 Tablet(s) PO BID 05/24/2010 Inactive Klor-Con 8 mEq Tab RxNorm: 139790 1 Tablet(s) PO QD 05/24/20102009 Inactive alprazolam 0.5 mg Tab RxNorm: 646774 2 Tablet(s) PO QD prn 05/24/20 10 07/17/2010 Inactive triamterene-hydrochlorothiazide 75 mg-50 mg Tab RxNorm: 3108 18 1 Tablet(s) PO QD 05/24/2010 11/19/2010 Inactive Ambien 10 mg Tab RxNorm: 978547 1 Tablet(s) PO QHS 05/23/2010 010 Inactive Alprazolam 0.5 mg Tab RxNorm: 235625 2 Tablet(s) PO QD prn 05/23/20 10 05/23/2010 Inactive Premarin 1.25 mg Tab RxNorm: 450904 2 Tablet(s) PO QD 05/19/201007/12 Inactive Hydrocodone-Acetaminophen 7.5 mg-650 mg Tab RxNorm: 916573 1 Ta blet(s) PO Q4H 05/19/2010 03/20/2011 Inactive Prednisone 20 mg Tab RxNorm: 525989 1 Tablet(s) PO BID 05/17/2010 Inactive Prednisone 20 mg Tab RxNorm: 592236 1 Tablet(s) PO BID 05/06/201001/2010 Inactive Premarin 1.25 mg Tab RxNorm: 915609 Tablet(s) PO 2 M-W-F, and 1 Yd-Jl-Atb-Sun 05/05/2010 08/02/2010 Inactive Premarin 1.25 mg Tab RxNorm: 303478 Tablet(s) PO 2 M-W-F, and 1 Ob-Un-Dxh-Sun 05/04/2010 05/04/2010 Inactive Premarin 1.25 mg Tab RxNorm: 893650 Tablet(s) PO 2 M-W-F, and 1 Zm-Ng-Djq-Sun 05/04/2010 05/03/2010 Inactive Prednisone 20 mg Tab RxNorm: 830057 1 Tablet(s) PO BID 04/27/2010 Inactive Alprazolam 0.5 mg Tab RxNorm: 439054 2 Tablet(s) PO QD prn 04/26/20 10 05/22/2010 Inactive Clindamycin 300 mg Cap RxNorm: 005525 2 Capsule(s) PO TID 04/05/2010 04/18/2010 Inactive Terbinafine 250 mg Tab RxNorm: 057921 1 Tablet(s) PO QD 04/04/2010 Inactive Hydrocodone-Acetaminophen 7.5 mg-650 mg Tab RxNorm: 016534 1 Ta blet(s) PO Q4H 03/30/2010 04/18/2010 Inactive Avelox 400 mg Tab RxNorm: 189369 1 Tablet(s) PO QD 03/09/2010 010 Inactive Hydrocodone-Acetaminophen 7.5 mg-650 mg Tab RxNorm: 194056 1 Ta blet(s) PO Q4H 03/08/2010 03/27/2010 Inactive Alprazolam 0.5 mg Tab RxNorm: 310413 2 Tablet(s) PO QD prn 03/08/20 10 04/25/2010 Inactive Klor-Con 8 mEq Tab RxNorm: 134748 1 Tablet(s) PO QD when takes lasi x 03/07/2010 08/03/2010 Inactive Premarin 1.25 mg Tab RxNorm: 644927 1 Tablet(s) PO QD 03/03/201003/11 Inactive Alprazolam 0.5 mg Tab RxNorm: 658668 1 Tablet(s) PO BID PRN 010 No Stop Date Active triamterene-hydrochlorothiazide 75 mg-50 mg Tab RxNorm: 3108 18 1 Tablet(s) PO QD 02/09/2010 02/03/2011 Inactive Hydrocodone-Acetaminophen 10 mg-750 mg Tab RxNorm: 553175 1 Tablet(s) PO Q4H PRN 02/09/2010 03/20/2011 Inactive Clonidine 0.2 mg Tab RxNorm: 565175 1 Tablet(s) PO TID 01/13/201009/2009 Inactive Alprazolam 0.5 mg Tab RxNorm: 977879 1 Tablet(s) PO BID PRN 010 01/12/2010 Inactive Hydrocodone-Acetaminophen 10 mg-750 mg Tab RxNorm: 027932 1 Tablet(s) PO Q4H PRN 01/13/2010 01/12/2010 Inactive ANGELIQ 1 mg-0.5 mg Tab RxNorm: 0574389 1 Tablet(s) PO QD 12/27/2009 01/23/2010 Inactive Lasix 40 mg Tab RxNorm: 253593 1 Tablet(s) PO QAM 12/14/2009 06/11/20 10 Inactive Vitamin B12 1000mcg Tablet RxNorm: 1 Tablet(s) PO QD No Start Date Active cyclobenzaprine 10 mg tablet RxNorm: 146296 1 Tablet(s) PO TID as needed DO NOT USE WITH BACLOFEN No Start Date Active Vitamin D 5,000 unit Tab RxNorm: 1 Tablet(s) PO QD No Start Date Active vitamin E (dl, acetate) 400 unit Cap RxNorm: 969418 1 Capsule(s ) PO QD No Start Date Active baclofen 10 mg tablet RxNorm: 980509 1 Tablet(s) PO TID as needed for muscle spasm No Start Date Active Benadryl 25 mg Cap RxNorm: 0603215 Capsule(s) PO PRN No Start Date Inactive amitriptyline 100 mg tablet RxNorm: 606037 1 Tablet(s) PO QHS No St art Date 11/27/2016 Inactive Zithromax Z-Dustin 250 mg tablet RxNorm: 905748 Tablet(s) PO as di rected No Start Date 07/22/2013 Inactive Klor-Con 8 mEq tablet,extended release RxNorm: 799189 1 Tablet( s) PO BID No Start Date 07/28/2012 Inactive scopolamine 1.5 mg 72 hr Transderm Patch RxNorm: 464137 Application TD Q72H for motion sickness No Start Date 05/25/2013 Inactive Klonopin 1 mg tablet RxNorm: 076963 1-2 Tablet(s) PO QHS as nee ded for sleep No Start Date 06/20/2015 Inactive Klor-Con M20 mEq tablet,extended release RxNorm: 501794 2 Tablet(s) PO BID to use with lasix No Start Date 11/11/2013 Inactive Bystolic 5 mg tablet RxNorm: 406198 1 Tablet(s) PO QD No Start Date 1 Inactive Bystolic 10 mg tablet RxNorm: 422060 1 Tablet(s) PO BID No Start Da te 07/06/2015 Inactive Premarin 1.25 mg Tab RxNorm: 286717 Tablet(s) PO 2 M-W-F, and 1 Bn-Zn-Bvu-Sun No Start Date 05/03/2010 Inactive baclofen 20 mg tablet RxNorm: 357409 1 Tablet(s) PO TID as needed for muscle spasm No Start Date 07/22/2015 Inactive hydrocodone-acetaminophen 7.5 mg-650 mg Tab RxNorm: 089602 1 Tablet(s) PO Q4H as needed for pain No Start Date 03/20/2011 Inactive albuterol sulfate 1.25 mg/3 mL Neb Solution RxNorm: 930206 1 Unit Dose INH Q4H 2boxes No Start Date 09/06/2015 Inactive Butrans 20 mcg/hour Transderm Patch RxNorm: 515170 1 TD WEEKLY apply to skin weekly after removing previous. No Start Date 07/22/2013 Inactive Medrol (Dustin) 4 mg tablets in a dose pack RxNorm: 038581 Tablet(s) PO As Directed No Start Date 07/30/2016 Inactive hydrocodone-acetaminophen 10 mg-325 mg Tab RxNorm: 5474775 1-2 Tablet(s) PO TID as needed for pain No Start Date 03/19/2011 Inactive Klonopin 1 mg tablet RxNorm: 934218 1 Tablet(s) PO QHS No Start Date 02/28/2016 Inactive honey topical RxNorm: topical No Start Date 06/16/2018 Inactive Clonidine 0.2 mg Tab RxNorm: 163363 1 Tablet(s) PO TID No Start Date 01/12/2010 Inactive ketorolac 10 mg tablet RxNorm: 185328 1 Tablet(s) PO Q8H No Start D ate 03/18/2012 Inactive as needed for headache Singulair 10 mg Tab RxNorm: 613866 1 Tablet(s) PO QD No Start Date Inactive Premarin 1.25 mg Tab RxNorm: 414447 1 Tablet(s) PO QD No Start Date 1 Inactive Flonase 50 mcg/Actuation Nasal [place] RxNorm: 5056066 1 [place] CECELIA AL BID No Start Date 03/18/2012 Inactive Terbinafine 250 mg Tab RxNorm: 603740 1 Tablet(s) PO QD No Start Da te 04/03/2010 Inactive Fexofenadine 180 mg Tab RxNorm: 7129306 1 Tablet(s) PO QD No Start Date 09/06/2015 Inactive baclofen 20 mg tablet RxNorm: 078798 1 Tablet(s) PO TID as needed N o Start Date 05/25/2014 Inactive Diovan 160 mg Tab RxNorm: 112141 1 Tablet(s) PO QD No Start Date 09/12 Inactive mupirocin 2 % topical ointment RxNorm: 391207 1 Application TOP QID No Start Date 04/25/2016 Inactive ZOFRAN ODT 4 mg Tab, Rapid Dissolve RxNorm: 814401 1 Tablet(s) PO Q4H No Start Date 03/18/2012 Inactive as needed for nausea and vomiting Alprazolam 0.5 mg Tab RxNorm: 738715 1 Tablet(s) PO BID PRN No Star t Date 01/12/2010 Inactive cyclobenzaprine 10 mg tablet RxNorm: 633307 1 Tablet(s) PO TID as needed for muscle spasm No Start Date 10/08/2017 Inactive Albuterol 0.083% Aerosol Solution RxNorm: 1 Appl ication INH Q4H Use one ampule every 4 hrs with nebulizer as needed for shortness of breath. No Start Date 10/09/2010 Inactive lorazepam 1 mg tablet RxNorm: 459727 1 1/2 Tablet(s) PO QHS No Star t Date 02/02/2016 Inactive Melatonin 3 mg Tab RxNorm: 069836 Tablet(s) PO PRN No Start Date 07/11 Inactive Medrol (Dustin) 4 mg Tabs in a Dose Pack RxNorm: 377969 Tablet(s) PO N o Start Date 11/28/2010 Inactive lorazepam 1 mg tablet RxNorm: 586785 1 Tablet(s) PO QHS as need ed for sleep No Start Date 01/30/2016 Inactive hydrocodone-acetaminophen 10 mg-325 mg Tab RxNorm: 6627301 1-2 Tablet(s) PO QID as needed for severe pain No Start Date 03/24/2012 Inactive celecoxib 200 mg capsule RxNorm: 857000 1 Capsule(s) PO BID No Star t Date 06/26/2019 Inactive amlodipine 5 mg-benazepril 20 mg capsule RxNorm: 401634 1 Capsu le(s) PO QD No Start Date 04/10/2017 Inactive Bystolic 20 mg tablet RxNorm: 276262 1/2 Tablet(s) PO QAM No Start Date 01/23/2016 Inactive Bystolic 20 mg tablet RxNorm: 244854 1 Tablet(s) PO QAM No Start Da te 04/25/2016 Inactive Ambien 10 mg Tab RxNorm: 998411 1 Tablet(s) PO QHS No Start Date 05/11 Inactive Klor-Con 8 mEq Tab RxNorm: 581565 1 Tablet(s) PO QD when takes lasix No Start Date 03/06/2010 Inactive aspirin 81 mg tablet RxNorm: 536160 1 Tablet(s) PO QD No Start Date 0 01/29/2018 Inactive hydrocodone-acetaminophen 10 mg-325 mg Tab RxNorm: 4016471 1-2 T ablet(s) PO QID No Start Date 01/10/2012 Inactive Bystolic 10 mg tablet RxNorm: 175986 1 Tablet(s) PO QAM take one daily in the morning. No Start Date 05/28/2013 Inactive nystatin 100,000 unit/mL Oral Susp RxNorm: 924144 5 Milliliter( s) PO QID No Start Date 03/18/2012 Inactive swish and spit scopolamine 1.5 mg 72 hr Transderm Patch RxNorm: 778945 1 Unit Dose TD Q72H for motion sickness No Start Date 12/23/2013 Inactive Hydrocodone-Acetaminophen 10 mg-750 mg Tab RxNorm: 166393 1 Tablet(s) PO Q4H PRN No Start Date 01/12/2010 Inactive Soma 350 mg tablet RxNorm: 652011 1 Tablet(s) PO TID as needed for spasm No Start Date 01/12/2013 Inactive Soma 350 mg Tab RxNorm: 157364 1 Tablet(s) PO TID for spasm No Star t Date 01/31/2012 Inactive Co Q-10 400 mg capsule RxNorm: 103616 1 Capsule(s) PO QD No Start D ate 01/21/2019 Inactive nystatin 100,000 unit/gram topical cream RxNorm: 013255 Applica tion TOP BID No Start Date 03/22/2015 Inactive Exforge 5 mg-160 mg Tab RxNorm: 854850 1 Tablet(s) PO QD No Start D ate 10/09/2010 Inactive Hydrocodone-Acetaminophen 7.5 mg-650 mg Tab RxNorm: 022844 1 Ta blet(s) PO Q4H No Start Date 03/07/2010 Inactive Robaxin-750 750 mg Tab RxNorm: 767844 1-2 Tablet(s) PO TID prn spasm No Start Date 05/21/2011 Inactive amlodipine 5 mg tablet RxNorm: 569307 1 Tablet(s) PO QHS No Start D ate 09/29/2015 Inactive oxycodone-acetaminophen 10 mg-325 mg tablet RxNorm: 6943527 1-2 Tablet(s) PO Q6H No Start Date 06/16/2018 Inactive Triamterene-Hydrochlorothiazide 75 mg-50 mg Tab RxNorm: 3108 18 1 Tablet(s) PO QD No Start Date 02/08/2010 Inactive Alprazolam 0.5 mg Tab RxNorm: 619850 2 Tablet(s) PO QD prn No Start Date 03/07/2010 Inactive Bystolic 20 mg tablet RxNorm: 209493 1 Tablet(s) PO QAM No Start Da te 08/17/2015 Inactive ketorolac 10 mg tablet RxNorm: 857441 1 Tablet(s) PO QID prn he adache No Start Date 07/17/2012 Inactive acyclovir 800 mg Tab RxNorm: 122691 1 Tablet(s) PO BID No Start Date 03/18/2012 Inactive duloxetine 60 mg capsule,delayed release RxNorm: 447981 1 Capsu le(s) PO QD No Start Date 09/29/2015 Inactive Norvasc 5 mg tablet RxNorm: 047930 1 Tablet(s) PO QHS No Start Date 1 10/18/2014 Inactive promethazine 25 mg tablet RxNorm: 950601 1 Tablet(s) PO Q8H use sparingly No Start Date 07/22/2013 Inactive alprazolam 0.5 mg tablet RxNorm: 503250 3 Tablet(s) PO QHS No Start Date 06/06/2015 Inactive Lunesta 3 mg tablet RxNorm: 976619 1 Tablet(s) PO QHS No Start Date 0 09/20/2017 Inactive hydrocodone-acetaminophen 10 mg-325 mg Tab RxNorm: 2659545 1-2 Tablet(s) PO TID as needed for pain No Start Date 12/10/2011 Inactive Coricidin HBP Cough & Cold 4 mg-30 mg Tab RxNorm: 0667454 Tablet (s) PO PRN No Start Date 10/09/2010 Inactive Bactroban 2 % Ointment RxNorm: 286834 Application TOP QID to so res No Start Date 02/22/2012 Inactive Flonase 50 mcg/actuation Nasal [place] RxNorm: 609444 2 [place] QHS No Start Date 03/03/2014 Inactive Medication Administered No Medication Administered data Immunizations Vaccine Codes Date Status Tetanus, Diptheria, Pertussis CVX: 115 02/27/2014 Results Observation Observation Code Item Item Code Result Date S [facility] Location COMPLETE BLOOD COUNT 4898106 WBC 10.7 10e9/L 018 Unknown COMPLETE BLOOD COUNT [id number] RBC 4.59 10e12/L 2017 Unknown COMPLETE BLOOD COUNT 6254390 HEMOGLOBIN 14.8 g/dL 12/11/19 18 Unknown COMPLETE BLOOD COUNT [id number] HEMATOCRIT 44.9 % 12/11/19 18 Unknown COMPLETE BLOOD COUNT 7810721 MCV 97.8 fL 8 Unknown COMPLETE BLOOD COUNT [id number] MCH 32.2 pg 8 Unknown COMPLETE BLOOD COUNT 6883499 MCHC 33.0 g/dL 8 Unknown COMPLETE BLOOD COUNT 8251567 PLATELET COUNT 261 10e9/L 10/2017 Unknown COMPLETE BLOOD COUNT [id number] Mean Plt Volume 9.5 fL 10/2017 Unknown COMPLETE BLOOD COUNT 8086592 Neut Auto 59.9 % 8 Unknown COMPLETE BLOOD COUNT [id number] Lymph Auto 27.4 % 12/11/19 18 Unknown COMPLETE BLOOD COUNT [id number] [place] Auto 8.2 % 8 Unknown COMPLETE BLOOD COUNT 7038841 RDW 13.3 % 8 Unknown COMPLETE BLOOD COUNT 4663522 Eos Auto 4.1 % 8 Unknown COMPLETE BLOOD COUNT 8754698 Baso Auto 0.4 % 8 Unknown COMPLETE BLOOD COUNT 8096904 Neutrophil Abs 6.41 10e9/L Unknown COMPLETE BLOOD COUNT [id number] Lymphocyte Abs 2.93 10e9/L Unknown COMPLETE BLOOD COUNT 9984434 Monocyte Abs 0.88 10e9/L 10/2017 Unknown COMPLETE BLOOD COUNT [id number] Eosinophil Abs 0.44 10e9/L Unknown COMPLETE BLOOD COUNT 6856943 RDW-SD 46.2 fL 8 Unknown COMPLETE BLOOD COUNT [id number] Basophil Abs 0.04 10e9/L 10/2017 Unknown THYROID STIMULATING HORMONE 05379 TSH 4.015 uIU/mL 12/10/2017 Unknown COMPREHENSIVE METABOLIC 02301 AST 25 U/L 2017 Unknown COMPREHENSIVE METABOLIC 28590 ALT 17 U/L 2017 Unknown COMPREHENSIVE METABOLIC 17485 BUN 19 mg/dL 2017 Unknown COMPREHENSIVE METABOLIC 80763 ALBUMIN 4.0 g/dL 2017 Unknown COMPREHENSIVE METABOLIC 15108 CHLORIDE 91 mmol/L 2017 Unknown COMPREHENSIVE METABOLIC 19411 Bili Total 0.5 mg/dL 12/10 Unknown COMPREHENSIVE METABOLIC 09130 ALK PHOS 75 U/L 2017 Unknown COMPREHENSIVE METABOLIC 99264 SODIUM 136 mmol/L 12/10 Unknown COMPREHENSIVE METABOLIC 45036 CREATININE 1.05 mg/dL 10/2017 Unknown COMPREHENSIVE METABOLIC 95296 CALCIUM 8.9 mg/dL 2017 Unknown COMPREHENSIVE METABOLIC 37735 POTASSIUM 3.4 mmol/L 12/10 Unknown COMPREHENSIVE METABOLIC 49091 Total Protein 6.5 g/dL Unknown COMPREHENSIVE METABOLIC 41091 Glucose 138 mg/dL 2017 Unknown COMPREHENSIVE METABOLIC 51775 Bicarbonate 35 mmol/L 10/2017 Unknown COMPREHENSIVE METABOLIC 59713 AGAP 10 mmol/L 2017 Unknown MEAN GLUC 4961297 Calc Mean Gluc 171 mg/dL 12/10/2017 Unkn own [facility] 75259 Cholesterol 204 mg/dL 12/10/2017 Unkno wn LIPID GROUP 39431 Triglyceride 411 mg/dL 12/10/2017 Unkn own L[facility] GROUP 54799 HDL CHOLESTEROL 50 mg/dL 12/10/2017 U nknown LIPID GROUP 40876 Chol/HDL Ratio 4.08 ratio 12/10/2017 U nknown LIPID GROUP 77824 NON-HDL Chol 154 mg/dL 12/10/2017 Unkn own LIPID GROUP 72868 LDL Cholesterol N/A Trig >400 018 Unknown GLYCOSYLATED HEMOGLOBIN TEST 55968 Hgb A1c 37942-3 7.6 % 0 12/10/2017 Unknown FREE T4 65519 T4 Free 1.40 ng/dL 12/10/2017 Unknown GFR CALC 2323918 GFR Non Afr Amr 55 mL/min 12/10/2017 Unk nown GFR CALC 6140040 GFR Afr Amr >60 mL/min 12/10/2017 Unknow n GFR CALC 1269765 GFR Non Afr Amr 48 mL/min 06/28/2017 Unk nown GFR CALC 7390104 GFR Afr Amr 59 mL/min 06/28/2017 Unknown COMPREHENSIVE METABOLIC 27517 AST 32 U/L 2016 Unknown COMPREHENSIVE METABOLIC 26007 ALT 22 U/L 2016 Unknown COMPREHENSIVE METABOLIC 55165 BUN 23 mg/dL 2016 Unknown COMPREHENSIVE METABOLIC 98104 ALBUMIN 4.7 g/dL 2016 Unknown COMPREHENSIVE METABOLIC 92787 CHLORIDE 89 mmol/L 2016 Unknown COMPREHENSIVE METABOLIC 28898 Bili Total 0.5 mg/dL 06/28 Unknown COMPREHENSIVE METABOLIC 50089 ALK PHOS 90 U/L 2016 Unknown COMPREHENSIVE METABOLIC 99614 SODIUM 135 mmol/L 06/28 Unknown COMPREHENSIVE METABOLIC 80555 CREATININE 1.18 mg/dL 06/10 Unknown COMPREHENSIVE METABOLIC 68747 CALCIUM 9.7 mg/dL 2016 Unknown COMPREHENSIVE METABOLIC 61475 POTASSIUM 3.5 mmol/L 06/28 Unknown COMPREHENSIVE METABOLIC 37138 Total Protein 7.7 g/dL Unknown COMPREHENSIVE METABOLIC 10994 Glucose 129 mg/dL 2016 Unknown COMPREHENSIVE METABOLIC 47840 Bicarbonate 34 mmol/L 06/10 Unknown COMPREHENSIVE METABOLIC 04322 AGAP 12 mmol/L 2016 Unknown LIPID GROUP 46062 HDL TEST 64 MG/DL 08/27/2014 Unknown LIPID GROUP 90250 TRIG 222 MG/DL 08/27/2014 Unknown LIPID GROUP 49955 TEST LDL 209 MG/DL 08/27/2014 Unknown LIPID GROUP 31106 CHOL 317 MG/DL 08/27/2014 Unknown LIPID GROUP 10916 RCHOL/HDL 4.95 RATIO 08/27/2014 Unknow n LIPID GROUP 94710 NON-HDL CH 253 MG/DL 08/27/2014 Unknow n GFR CALC 9285946 GFR AA >60 ML/MIN 08/27/2014 Unknown GFR CALC 2506460 GFR NON-AA >60 ML/MIN 08/27/2014 Unknown COMPLETE BLOOD COUNT 2209328 WBC 7.0 10e9/L 08/27/20 14 Unknown COMPLETE BLOOD COUNT [id number] RBC 4.98 10e12/L 2013 Unknown COMPLETE BLOOD COUNT 8451227 HGB 15.6 g/dL 4 Unknown COMPLETE BLOOD COUNT 1255556 HCT DET 46.5 % 4 Unknown COMPLETE BLOOD COUNT 8930976 MCV 93.4 fL 4 Unknown COMPLETE BLOOD COUNT 4372322 MCH 31.3 pg 4 Unknown COMPLETE BLOOD COUNT 3146931 MCHC 33.5 g/dL 4 Unknown COMPLETE BLOOD COUNT 3020176 PLT 309 10e9/L 08/27/20 14 Unknown COMPLETE BLOOD COUNT 4380687 MPV 9.6 fL 4 Unknown COMPLETE BLOOD COUNT 0702693 CADEN % 57.2 % 4 Unknown COMPLETE BLOOD COUNT 7106502 LY % 33.2 % 4 Unknown COMPLETE BLOOD COUNT 4289545 MON % 7.3 % 4 Unknown COMPLETE BLOOD COUNT 1732771 EOS % 2.0 % 4 Unknown COMPLETE BLOOD COUNT 9885262 BASO % 0.3 % 4 Unknown COMPLETE BLOOD COUNT 9350133 RDW 13.7 % 4 Unknown COMPLETE BLOOD COUNT [id number] ABS CADEN 4.00 10e9/L 014 Unknown COMPLETE BLOOD COUNT 2130411 ABS LYMPH 2.32 10e9/L 014 Unknown COMPLETE BLOOD COUNT 2070990 ABS MONO 0.51 10e9/L 014 Unknown COMPLETE BLOOD COUNT 3317005 ABS EOS 0.14 10e9/L 014 Unknown COMPLETE BLOOD COUNT 0568277 ABS BASO 0.02 10e9/L 014 Unknown COMPLETE BLOOD COUNT 4432413 RDW-SD 45.1 fL 4 Unknown COMPREHENSIVE METABOLIC 90795 AST 13 U/L 2013 Unknown COMPREHENSIVE METABOLIC 68984 ALT 11 IU/L 2013 Unknown COMPREHENSIVE METABOLIC 57226 BUN 23 MG/DL 2013 Unknown COMPREHENSIVE METABOLIC 31987 ALBUMIN 4.4 GM/DL 2013 Unknown COMPREHENSIVE METABOLIC 76601 CHLORIDE 99 MMOL/L 2013 Unknown COMPREHENSIVE METABOLIC 57238 BILI TOT 0.5 MG/DL 2013 Unknown COMPREHENSIVE METABOLIC 87324 ALK PHOS 56 U/L 2013 Unknown COMPREHENSIVE METABOLIC 75314 SODIUM 138 MMOL/L 08/27 Unknown COMPREHENSIVE METABOLIC 01047 CREATININE 0.95 MG/DL 08/10 Unknown COMPREHENSIVE METABOLIC 20513 CALCIUM 9.8 MG/DL 2013 Unknown COMPREHENSIVE METABOLIC 49554 POTASSIUM 3.5 MMOL/L 08/27 Unknown COMPREHENSIVE METABOLIC 29799 PROT TOT 6.8 GM/DL 2013 Unknown COMPREHENSIVE METABOLIC 60679 Glucose 90 MG/DL 2013 Unknown COMPREHENSIVE METABOLIC 68156 BICARB 34 MMOL/L 2013 Unknown COMPREHENSIVE METABOLIC 29441 ANION GAP 5 MEQ/L 2013 Unknown LIPASE 11304 LIPASE 11 IU/L 07/21/2014 Unknown AMYLASE 88831 AMYLASE 39 IU/L 07/21/2014 Unknown HEMOGLOBIN A1C (GLYCOSYLATED) 6758131 A1C [facility] 06515-9 6.2 % 03/05/2013 Unknown THYROID STIMULATING HORMONE 01619 TSH 6.986 uIU/ML 03/05/2013 Unknown COMPLETE BLOOD COUNT 2007879 WBC 12.7 10e9/L 013 Unknown COMPLETE BLOOD COUNT 6602124 RBC 4.53 10e12/L 2012 Unknown COMPLETE BLOOD COUNT 2844173 HGB 14.7 g/dL 3 Unknown COMPLETE BLOOD COUNT 7911440 HCT DET 43.1 % 3 Unknown COMPLETE BLOOD COUNT 6882953 MCV 95.1 fL 3 Unknown COMPLETE BLOOD COUNT 3386574 MCH 32.5 pg 3 Unknown COMPLETE BLOOD COUNT 0533037 MCHC 34.1 g/dL 3 Unknown COMPLETE BLOOD COUNT 1754304 PLT 346 10e9/L 03/05/20 13 Unknown COMPLETE BLOOD COUNT 1238310 MPV 9.5 fL 3 Unknown COMPLETE BLOOD COUNT 1030201 CADEN % 67.6 % 3 Unknown COMPLETE BLOOD COUNT 9350676 LY % 22.1 % 3 Unknown COMPLETE BLOOD COUNT 8305865 MON % 6.6 % 3 Unknown COMPLETE BLOOD COUNT 4504319 EOS % 3.3 % 3 Unknown COMPLETE BLOOD COUNT 7192653 BASO % 0.4 % 3 Unknown COMPLETE BLOOD COUNT 9808060 RDW 14.0 % 3 Unknown COMPLETE BLOOD COUNT 7415170 ABS CADEN 8.59 10e9/L 013 Unknown COMPLETE BLOOD COUNT 9443328 ABS LYMPH 2.81 10e9/L 013 Unknown COMPLETE BLOOD COUNT 7828423 ABS MONO 0.84 10e9/L 013 Unknown COMPLETE BLOOD COUNT 7029503 ABS EOS 0.42 10e9/L 013 Unknown COMPLETE BLOOD COUNT 1267989 ABS BASO 0.05 10e9/L 013 Unknown COMPLETE BLOOD COUNT 9289404 RDW-SD 46.0 fL 3 Unknown FREE T4 02116 FREE T4 1.14 NG/DL 03/05/2013 Unknown COMPREHENSIVE METABOLIC 25160 AST 17 U/L 2012 Unknown COMPREHENSIVE METABOLIC 56993 ALT 12 IU/L 2012 Unknown COMPREHENSIVE METABOLIC 78382 BUN 24 MG/DL 2012 Unknown COMPREHENSIVE METABOLIC 58132 ALBUMIN 4.2 GM/DL 2012 Unknown COMPREHENSIVE METABOLIC 01685 CHLORIDE 93 MMOL/L 2012 Unknown COMPREHENSIVE METABOLIC 23910 BILI TOT 0.5 MG/DL 2012 Unknown COMPREHENSIVE METABOLIC 51217 ALK PHOS 75 U/L 2012 Unknown COMPREHENSIVE METABOLIC 15066 SODIUM 141 MMOL/L 03/05 Unknown COMPREHENSIVE METABOLIC 30515 CREATININE 1.36 MG/DL 02/09 Unknown COMPREHENSIVE METABOLIC 58353 CALCIUM 9.2 MG/DL 2012 Unknown COMPREHENSIVE METABOLIC 24092 POTASSIUM 3.1 MMOL/L 03/05 Unknown COMPREHENSIVE METABOLIC 79775 PROT TOT 6.9 GM/DL 2012 Unknown COMPREHENSIVE METABOLIC 27813 Glucose 123 MG/DL 2012 Unknown COMPREHENSIVE METABOLIC 38819 BICARB 36 MMOL/L 2012 Unknown COMPREHENSIVE METABOLIC 63485 ANION GAP 12 MEQ/L 2012 Unknown GFR CALC 3696333 GFR AA 51.0L ML/MIN 03/05/2013 Unknow n GFR CALC 9087679 GFR NON-AA 42.0L ML/MIN 03/05/2013 Unkno wn COMPREHENSIVE METABOLIC 09321 AST 14 U/L 2012 Unknown COMPREHENSIVE METABOLIC 56714 ALT 11 IU/L 2012 Unknown COMPREHENSIVE METABOLIC 20142 BUN 16 MG/DL 2012 Unknown COMPREHENSIVE METABOLIC 38275 ALBUMIN 4.2 GM/DL 2012 Unknown COMPREHENSIVE METABOLIC 90806 CHLORIDE 98 MMOL/L 2012 Unknown COMPREHENSIVE METABOLIC 62277 BILI TOT 0.4 MG/DL 2012 Unknown COMPREHENSIVE METABOLIC 09424 ALK PHOS 77 U/L 2012 Unknown COMPREHENSIVE METABOLIC 33440 SODIUM 139 MMOL/L 09/25 Unknown COMPREHENSIVE METABOLIC 54466 CREATININE 0.86 MG/DL 09/10 Unknown COMPREHENSIVE METABOLIC 61005 CALCIUM 9.5 MG/DL 2012 Unknown COMPREHENSIVE METABOLIC 65649 POTASSIUM 3.8 MMOL/L 09/25 Unknown COMPREHENSIVE METABOLIC 89071 PROT TOT 6.8 GM/DL 2012 Unknown COMPREHENSIVE METABOLIC 87168 Glucose 91 MG/DL 2012 Unknown COMPREHENSIVE METABOLIC 12311 BICARB 32 MMOL/L 2012 Unknown COMPREHENSIVE METABOLIC 48666 ANION GAP 9 MEQ/L 2012 Unknown FREE T4 81107 FREE T4 0.98 NG/DL 09/25/2012 Unknown THYROID STIMULATING HORMONE 29665 TSH 1.736 uIU/ML 09/25/2012 Unknown C-REACTIVE PROTEIN (CRP) QUANT 29864 CRP 2.3 MG/DL 09/25/2012 Unknown COMPLETE BLOOD COUNT 8855603 WBC 11.9 10e9/L 013 Unknown COMPLETE BLOOD COUNT 0940908 RBC 4.87 10e12/L 2012 Unknown COMPLETE BLOOD COUNT 1559924 HGB 15.1 g/dL 3 Unknown COMPLETE BLOOD COUNT 6064713 HCT DET 44.8 % 3 Unknown COMPLETE BLOOD COUNT 6461373 MCV 92.0 fL 3 Unknown COMPLETE BLOOD COUNT 9033810 MCH 31.0 pg 3 Unknown COMPLETE BLOOD COUNT 5864227 MCHC 33.7 g/dL 3 Unknown COMPLETE BLOOD COUNT 7770302 PLT 343 10e9/L 09/25/19 13 Unknown COMPLETE BLOOD COUNT 7334811 MPV 9.0 fL 3 Unknown COMPLETE BLOOD COUNT 9372873 CADEN % 68.2 % 3 Unknown COMPLETE BLOOD COUNT 5926847 LY % 22.4 % 3 Unknown COMPLETE BLOOD COUNT 3380248 MON % 6.4 % 3 Unknown COMPLETE BLOOD COUNT 3829952 EOS % 2.7 % 3 Unknown COMPLETE BLOOD COUNT 7803467 BASO % 0.3 % 3 Unknown COMPLETE BLOOD COUNT 1907077 RDW 13.8 % 3 Unknown COMPLETE BLOOD COUNT 9912348 ABS CADEN 8.12 10e9/L 013 Unknown COMPLETE BLOOD COUNT 2429519 ABS LYMPH 2.67 10e9/L 013 Unknown COMPLETE BLOOD COUNT 0164658 ABS MONO 0.76 10e9/L 013 Unknown COMPLETE BLOOD COUNT [id number] ABS EOS 0.32 10e9/L 013 Unknown COMPLETE BLOOD COUNT 6879799 ABS BASO 0.04 10e9/L 013 Unknown COMPLETE BLOOD COUNT 8733637 RDW-SD 45.6 fL 3 Unknown GFR CALC 5395658 GFR AA >60 ML/MIN 09/25/2012 Unknown GFR CALC 9700687 GFR NON-AA >60 ML/MIN 09/25/2012 Unknown ERYTHROCYTE SEDIMENTATION RATE 05016 ESR 19 MM/HR 05/06/2012 Unknown VITAMIN B 12 FOLIC ACID 44034|12796 VIT B 12 922 PG/ML 04/11 Unknown VITAMIN B 12 FOLIC ACID 47177|09036 FOLIC ACID 13.6 NG/ML Unknown URIC ACID 59740 URIC ACID 7.8 MG/DL 05/06/2012 Unknown COMPLETE BLOOD COUNT 43355 WBC 11.9 10e9/L 012 Unknown COMPLETE BLOOD COUNT 96231 RBC 5.30 10e12/L 2011 Unknown COMPLETE BLOOD COUNT 56964 HGB 16.6 g/dL 2 Unknown COMPLETE BLOOD COUNT 15826 HCT DET 47.2 % 2 Unknown COMPLETE BLOOD COUNT 52590 MCV 89.1 fL 2 Unknown COMPLETE BLOOD COUNT 13986 MCH 31.3 pg 2 Unknown COMPLETE BLOOD COUNT 09987 MCHC 35.2 g/dL 2 Unknown COMPLETE BLOOD COUNT 12700 PLT 362 10e9/L 05/06/20 12 Unknown COMPLETE BLOOD COUNT 06895 MPV 9.4 fL 2 Unknown COMPLETE BLOOD COUNT 12160 CADEN % 68.2 % 2 Unknown COMPLETE BLOOD COUNT 94865 LY % 22.0 % 2 Unknown COMPLETE BLOOD COUNT 14983 MON % 6.9 % 2 Unknown COMPLETE BLOOD COUNT 28466 EOS % 2.6 % 2 Unknown COMPLETE BLOOD COUNT 30893 BASO % 0.3 % 2 Unknown COMPLETE BLOOD COUNT 22665 RDW 12.8 % 2 Unknown COMPLETE BLOOD COUNT 49049 ABS CADEN 8.12 10e9/L 012 Unknown COMPLETE BLOOD COUNT 04518 ABS LYMPH 2.62 10e9/L 012 Unknown COMPLETE BLOOD COUNT 87124 ABS MONO 0.82 10e9/L 012 Unknown COMPLETE BLOOD COUNT 00072 ABS EOS 0.31 10e9/L 012 Unknown COMPLETE BLOOD COUNT 85798 ABS BASO 0.04 10e9/L 012 Unknown COMPLETE BLOOD COUNT 54601 RDW-SD 41.5 fL 2 Unknown GFR CALC 5523380 GFR AA >60 ML/MIN 05/06/2012 Unknown GFR CALC 9427850 GFR NON-AA 58.0L ML/MIN 05/06/2012 Unkno wn FREE T4 86208 FREE T4 1.15 NG/DL 05/06/2012 Unknown THYROID STIMULATING HORMONE 64963 TSH 1.568 uIU/ML 05/06/2012 Unknown COMPREHENSIVE METABOLIC 74392 AST 20 U/L 2011 Unknown COMPREHENSIVE METABOLIC 90439 ALT 12 IU/L 2011 Unknown COMPREHENSIVE METABOLIC 56112 BUN 20 MG/DL 2011 Unknown COMPREHENSIVE METABOLIC 68188 ALBUMIN 4.5 GM/DL 2011 Unknown COMPREHENSIVE METABOLIC 99518 CHLORIDE 91 MMOL/L 2011 Unknown COMPREHENSIVE METABOLIC 97407 BILI TOT 0.4 MG/DL 2011 Unknown COMPREHENSIVE METABOLIC 30381 ALK PHOS 73 U/L 2011 Unknown COMPREHENSIVE METABOLIC 13778 SODIUM 139 MMOL/L 05/06 Unknown COMPREHENSIVE METABOLIC 06923 CREATININE 1.02 MG/DL 04/11 Unknown COMPREHENSIVE METABOLIC 92233 CALCIUM 9.7 MG/DL 2011 Unknown COMPREHENSIVE METABOLIC 15242 POTASSIUM 3.1 MMOL/L 05/06 Unknown COMPREHENSIVE METABOLIC 66787 PROT TOT 7.3 GM/DL 2011 Unknown COMPREHENSIVE METABOLIC 09228 Glucose 118 MG/DL 2011 Unknown COMPREHENSIVE METABOLIC 14919 BICARB 33 MMOL/L 2011 Unknown COMPREHENSIVE METABOLIC 98339 ANION GAP 15 MEQ/L 2011 Unknown Procedures Procedure Codes Date URINALYSIS NONAUTO W/O SCOPE CPT-4: 95635 09/30/2018 MICROALBUMIN QUANTITATIVE CPT-4: 45319 09/30/2018 CEFTRIAXONE SODIUM INJECTION CPT-4: J0696 06/19/2018 THER/PROPH/DIAG INJ SC/IM CPT-4: 29984 06/19/2018 CEFTRIAXONE SODIUM INJECTION CPT-4: J0696 06/17/2018 THER/PROPH/DIAG INJ SC/IM CPT-4: 87345 06/17/2018 THER/PROPH/DIAG INJ SC/IM CPT-4: 78757 05/16/2018 KETOROLAC TROMETHAMINE INJ CPT-4: J1885 05/16/2018 ONDANSETRON HCL INJECTION CPT-4: J2405 05/16/2018 THER/PROPH/DIAG INJ SC/IM CPT-4: 52649 05/16/2018 ROUTINE VENIPUNCTURE CPT-4: 39774 03/20/2018 COMPREHEN METABOLIC PANEL CPT-4: 00320 03/20/2018 DEXAMETHASONE SODIUM PHOS CPT-4: J1100 02/11/2018 THER/PROPH/DIAG INJ SC/IM CPT-4: 04082 02/11/2018 TRIAMCINOLONE ACET INJ NOS CPT-4: J3301 02/11/2018 CEFTRIAXONE SODIUM INJECTION CPT-4: J0696 02/01/2018 THER/PROPH/DIAG INJ SC/IM CPT-4: 30622 02/01/2018 CEFTRIAXONE SODIUM INJECTION CPT-4: J0696 01/30/2018 THER/PROPH/DIAG INJ SC/IM CPT-4: 65422 01/30/2018 ROUTINE VENIPUNCTURE CPT-4: 22550 12/10/2017 ASSAY OF FREE THYROXINE CPT-4: 88636 12/10/2017 ASSAY THYROID STIM HORMONE CPT-4: 01554 12/10/2017 COMPREHEN METABOLIC PANEL CPT-4: 96875 12/10/2017 COMPLETE CBC W/AUTO DIFF WBC CPT-4: 92309 12/10/2017 LIPID PANEL CPT-4: 94292 12/10/2017 A1C HPLC CPT-4: 44572 12/10/2017 CEFTRIAXONE SODIUM INJECTION CPT-4: J0696 12/10/2017 THER/PROPH/DIAG INJ SC/IM CPT-4: 93332 12/10/2017 CEFTRIAXONE SODIUM INJECTION CPT-4: J0696 12/07/2017 THER/PROPH/DIAG INJ SC/IM CPT-4: 83475 12/07/2017 DEXAMETHASONE SODIUM PHOS CPT-4: J1100 12/07/2017 THER/PROPH/DIAG INJ SC/IM CPT-4: 69177 12/07/2017 CEFTRIAXONE SODIUM INJECTION CPT-4: J0696 10/08/2017 THER/PROPH/DIAG INJ SC/IM CPT-4: 76659 10/08/2017 CEFTRIAXONE SODIUM INJECTION CPT-4: J0696 09/21/2017 THER/PROPH/DIAG INJ SC/IM CPT-4: 88102 09/21/2017 CEFTRIAXONE SODIUM INJECTION CPT-4: J0696 09/20/2017 THER/PROPH/DIAG INJ SC/IM CPT-4: 57673 09/20/2017 REMOVAL OF NAIL PLATE CPT-4: 35623 08/29/2017 THER/PROPH/DIAG INJ SC/IM CPT-4: 80753 08/29/2017 TRIAMCINOLONE ACET INJ NOS CPT-4: J3301 08/29/2017 CEFTRIAXONE SODIUM INJECTION CPT-4: J0696 08/29/2017 THER/PROPH/DIAG INJ SC/IM CPT-4: 61609 08/29/2017 DESTRUCT PREMALG LESION (Cryosurgery) CPT-4: 75536 ROUTINE VENIPUNCTURE CPT-4: 93036 06/27/2017 ASSAY OF FREE THYROXINE CPT-4: 29529 06/27/2017 ASSAY THYROID STIM HORMONE CPT-4: 94467 06/27/2017 COMPREHEN METABOLIC PANEL CPT-4: 16399 06/27/2017 COMPLETE CBC W/AUTO DIFF WBC CPT-4: 05604 06/27/2017 EXC TR-EXT B9+REECE 0.5 CM< CPT-4: 88866 01/24/2017 THER/PROPH/DIAG INJ SC/IM CPT-4: 43314 08/02/2016 DEXAMETHASONE SODIUM PHOS CPT-4: J1100 08/02/2016 DESTRUCT PREMALG LESION (Cryosurgery) CPT-4: 00262 EXC TR-EXT B9+REECE 0.5 CM< CPT-4: 23253 08/01/2016 AEROBIC WOUND CULTURE & STN CPT-4: 56019 07/06/2016 CEFTRIAXONE SODIUM INJECTION CPT-4: J0696 05/25/2016 THER/PROPH/DIAG INJ SC/IM CPT-4: 98707 05/25/2016 THER/PROPH/DIAG INJ SC/IM CPT-4: 73353 04/26/2016 DEXAMETHASONE SODIUM PHOS CPT-4: J1100 04/26/2016 CEFTRIAXONE SODIUM INJECTION CPT-4: J0696 04/26/2016 THER/PROPH/DIAG INJ SC/IM CPT-4: 63676 04/26/2016 THER/PROPH/DIAG INJ SC/IM CPT-4: 27069 02/09/2016 TRIAMCINOLONE ACET INJ NOS CPT-4: J3301 02/09/2016 URINALYSIS NONAUTO W/O SCOPE CPT-4: 74885 01/24/2016 URINE CULTURE/ COLONY COUNT CPT-4: 02135 01/24/2016 THER/PROPH/DIAG INJ SC/IM CPT-4: 52737 12/08/2015 TRIAMCINOLONE ACET INJ NOS CPT-4: J3301 12/08/2015 THER/PROPH/DIAG INJ SC/IM CPT-4: 42375 10/07/2015 TRIAMCINOLONE ACET INJ NOS CPT-4: J3301 10/07/2015 DESTRUCT PREMALG LESION (Cryosurgery) CPT-4: 41281 THER/PROPH/DIAG INJ SC/IM CPT-4: 59254 03/16/2015 METHYLPREDNISOLONE 40 MG INJ CPT-4: J1030 03/16/2015 DESTRUCT PREMALG LESION (Cryosurgery) CPT-4: 86379 THER/PROPH/DIAG INJ SC/IM CPT-4: 17092 09/11/2014 METHYLPREDNISOLONE 40 MG INJ CPT-4: J1030 09/11/2014 TRIAMCINOLONE ACET INJ NOS CPT-4: J3301 09/11/2014 CEFTRIAXONE SODIUM INJECTION CPT-4: J0696 09/11/2014 THER/PROPH/DIAG INJ SC/IM CPT-4: 91677 09/11/2014 ROUTINE VENIPUNCTURE CPT-4: 39610 08/27/2014 COMPREHEN METABOLIC PANEL CPT-4: 74704 08/27/2014 COMPLETE CBC W/AUTO DIFF WBC CPT-4: 19807 08/27/2014 LIPID PANEL CPT-4: 39118 08/27/2014 ROUTINE VENIPUNCTURE CPT-4: 97380 07/21/2014 ASSAY OF AMYLASE CPT-4: 49250 07/21/2014 ASSAY OF LIPASE CPT-4: 97589 07/21/2014 THER/PROPH/DIAG INJ SC/IM CPT-4: 21491 07/15/2014 TRIAMCINOLONE ACET INJ NOS CPT-4: J3301 07/15/2014 ROUTINE VENIPUNCTURE CPT-4: 16351 05/14/2014 ASSAY OF FREE THYROXINE CPT-4: 40485 05/14/2014 ASSAY THYROID STIM HORMONE CPT-4: 68614 05/14/2014 COMPREHEN METABOLIC PANEL CPT-4: 65859 05/14/2014 COMPLETE CBC W/AUTO DIFF WBC CPT-4: 24284 05/14/2014 LIPID PANEL CPT-4: 42824 05/14/2014 CEFTRIAXONE SODIUM INJECTION CPT-4: J0696 04/21/2014 THER/PROPH/DIAG INJ SC/IM CPT-4: 33222 04/21/2014 THER/PROPH/DIAG INJ SC/IM CPT-4: 45319 04/21/2014 TRIAMCINOLONE ACET INJ NOS CPT-4: J3301 04/21/2014 THER/PROPH/DIAG INJ SC/IM CPT-4: 90172 03/04/2014 METHYLPREDNISOLONE 40 MG INJ CPT-4: J1030 03/04/2014 TRIAMCINOLONE ACET INJ NOS CPT-4: J3301 03/04/2014 CEFTRIAXONE SODIUM INJECTION CPT-4: J0696 03/04/2014 THER/PROPH/DIAG INJ SC/IM CPT-4: 03499 03/04/2014 TDAP VACCINE 7 YRS/> IM CPT-4: 65640 02/27/2014 IMMUNIZATION ADMIN CPT-4: 25432 02/27/2014 DESTRUCT PREMALG LESION (Cryosurgery) CPT-4: 02662 DESTRUCT PREMALG LES 2-14 CPT-4: 38659 01/13/2014 THER/PROPH/DIAG INJ SC/IM CPT-4: 19110 10/21/2013 METHYLPREDNISOLONE 40 MG INJ CPT-4: J1030 10/21/2013 TRIAMCINOLONE ACET INJ NOS CPT-4: J3301 10/21/2013 CEFTRIAXONE SODIUM INJECTION CPT-4: J0696 08/27/2013 THER/PROPH/DIAG INJ SC/IM CPT-4: 19471 08/27/2013 THER/PROPH/DIAG INJ SC/IM CPT-4: 73527 08/27/2013 METHYLPREDNISOLONE 40 MG INJ CPT-4: J1030 08/27/2013 TRIAMCINOLONE ACET INJ NOS CPT-4: J3301 08/27/2013 THER/PROPH/DIAG INJ SC/IM CPT-4: 15370 06/23/2013 METHYLPREDNISOLONE 40 MG INJ CPT-4: J1030 06/23/2013 TRIAMCINOLONE ACET INJ NOS CPT-4: J3301 06/23/2013 THER/PROPH/DIAG INJ SC/IM CPT-4: 22011 05/26/2013 METHYLPREDNISOLONE 40 MG INJ CPT-4: J1030 05/26/2013 TRIAMCINOLONE ACET INJ NOS CPT-4: J3301 05/26/2013 ROUTINE VENIPUNCTURE CPT-4: 50329 03/05/2013 ASSAY OF FREE THYROXINE CPT-4: 55294 03/05/2013 ASSAY THYROID STIM HORMONE CPT-4: 07763 03/05/2013 COMPREHEN METABOLIC PANEL CPT-4: 31499 03/05/2013 COMPLETE CBC W/AUTO DIFF WBC CPT-4: 22929 03/05/2013 A1C GLYCOSYLATED HEMOGLOBIN TEST CPT-4: 94958 013 DRAIN/INJECT JOINT/BURSA CPT-4: 85561 12/04/2012 METHYLPREDNISOLONE 40 MG INJ CPT-4: J1030 12/04/2012 TRIAMCINOLONE ACET INJ NOS CPT-4: J3301 12/04/2012 CEFTRIAXONE SODIUM INJECTION CPT-4: J0696 11/21/2012 THER/PROPH/DIAG INJ SC/IM CPT-4: 91060 11/21/2012 THER/PROPH/DIAG INJ SC/IM CPT-4: 40821 10/14/2012 METHYLPREDNISOLONE 40 MG INJ CPT-4: J1030 10/14/2012 TRIAMCINOLONE ACET INJ NOS CPT-4: J3301 10/14/2012 URINALYSIS NONAUTO W/O SCOPE CPT-4: 68186 09/27/2012 ROUTINE VENIPUNCTURE CPT-4: 94876 09/25/2012 ASSAY OF FREE THYROXINE CPT-4: 92571 09/25/2012 ASSAY THYROID STIM HORMONE CPT-4: 89711 09/25/2012 COMPREHEN METABOLIC PANEL CPT-4: 71433 09/25/2012 COMPLETE CBC W/AUTO DIFF WBC CPT-4: 34589 09/25/2012 C-REACTIVE PROTEIN CPT-4: 24997 09/25/2012 THER/PROPH/DIAG INJ SC/IM CPT-4: 52618 08/29/2012 METHYLPREDNISOLONE 40 MG INJ CPT-4: J1030 08/29/2012 TRIAMCINOLONE ACET INJ NOS CPT-4: J3301 08/29/2012 DESTRUCT PREMALG LESION (Cryosurgery) CPT-4: 13749 THER/PROPH/DIAG INJ SC/IM CPT-4: 83238 05/06/2012 METHYLPREDNISOLONE 40 MG INJ CPT-4: J1030 05/06/2012 TRIAMCINOLONE ACET INJ NOS CPT-4: J3301 05/06/2012 VITAMIN B 12 FOLIC ACID CPT-4: 20285|95400 05/06/2012 RBC SED RATE AUTOMATED CPT-4: 51147 05/06/2012 ROUTINE VENIPUNCTURE CPT-4: 27888 05/06/2012 ASSAY OF FREE THYROXINE CPT-4: 78167 05/06/2012 ASSAY THYROID STIM HORMONE CPT-4: 48629 05/06/2012 COMPREHEN METABOLIC PANEL CPT-4: 73088 05/06/2012 COMPLETE CBC W/AUTO DIFF WBC CPT-4: 35531 05/06/2012 ASSAY OF BLOOD/URIC ACID CPT-4: 71955 05/06/2012 THER/PROPH/DIAG INJ SC/IM CPT-4: 09438 03/19/2012 KETOROLAC TROMETHAMINE INJ CPT-4: J1885 03/19/2012 KETOROLAC TROMETHAMINE INJ CPT-4: J1885 01/30/2012 THER/PROPH/DIAG INJ SC/IM CPT-4: 39852 01/30/2012 PROMETHAZINE HCL INJECTION CPT-4: J2550 01/30/2012 THER/PROPH/DIAG INJ SC/IM CPT-4: 21910 01/24/2012 METHYLPREDNISOLONE 40 MG INJ CPT-4: J1030 01/24/2012 TRIAMCINOLONE ACET INJ NOS CPT-4: J3301 01/24/2012 THER/PROPH/DIAG INJ SC/IM CPT-4: 10905 09/13/2011 KETOROLAC TROMETHAMINE INJ CPT-4: J1885 09/13/2011 THER/PROPH/DIAG INJ SC/IM CPT-4: 72752 09/13/2011 PROMETHAZINE HCL INJECTION CPT-4: J2550 09/13/2011 CEFTRIAXONE SODIUM INJECTION CPT-4: J0696 07/20/2011 THER/PROPH/DIAG INJ SC/IM CPT-4: 50457 07/20/2011 THER/PROPH/DIAG INJ SC/IM CPT-4: 32404 07/20/2011 METHYLPREDNISOLONE INJECTION CPT-4: J2930 07/20/2011 URINALYSIS NONAUTO W/O SCOPE CPT-4: 52600 05/09/2011 CEFTRIAXONE SODIUM INJECTION CPT-4: J0696 05/09/2011 THER/PROPH/DIAG INJ SC/IM CPT-4: 51231 05/09/2011 THER/PROPH/DIAG INJ SC/IM CPT-4: 67455 05/09/2011 PROMETHAZINE HCL INJECTION CPT-4: J2550 05/09/2011 HYDRATION IV INFUSION INIT CPT-4: 92702 05/09/2011 DESTRUCT PREMALG LESION (Cryosurgery) CPT-4: 97457 DESTRUCT PREMALG LES 2-14 CPT-4: 59616 07/19/2010 REMOVAL OF SKIN TAGS <W/15 CPT-4: 33890 05/30/2010 THER/PROPH/DIAG INJ SC/IM CPT-4: 40811 04/05/2010 CEFTRIAXONE SODIUM INJECTION CPT-4: J0696 04/05/2010 TRIAMCINOLONE ACET INJ NOS CPT-4: J3301 04/05/2010 METHYLPREDNISOLONE 40 MG INJ CPT-4: J1030 04/05/2010 THER/PROPH/DIAG INJ SC/IM CPT-4: 96539 04/05/2010 TRIAMCINOLONE ACET INJ NOS CPT-4: J3301 03/09/2010 METHYLPREDNISOLONE 40 MG INJ CPT-4: J1030 03/09/2010 THER/PROPH/DIAG INJ SC/IM CPT-4: 13960 03/09/2010 THER/PROPH/DIAG INJ SC/IM CPT-4: 36511 03/09/2010 CEFTRIAXONE SODIUM INJECTION CPT-4: J0696 03/09/2010 Vital Signs Date Vital 05/28/2019 Blood Pressure 1: 126/82 Code: 8480-6 BMI: 35.0 Code: 29509-2 Heart Rate 1: 88 bpm Height: 5'4" [...] 1: 128/90 Code: 8480-6 BMI: 37.2 Code: 93881-9 Heart Rate 1: 84 bpm Height: 5'4" Respiratory Rate: 20 bpm SpO2: 95% Tempera ture: 36.6 (C) / 97.8 (F) Weight: 217 lbs 08/27/2018 Blood Pressure 1: 128/88 Code: 8480-6 BMI: 38.3 Code: 93600-4 Heart Rate 1: 84 bpm Height: 5'4" [...] 1: 119/72 Code: 8480-6 BMI: 37.4 Code: 79571-2 Heart Rate 1: 82 bpm Height: 5'4" Respiratory Rate: 12 bpm SpO2: 94% Tempera ture: 35.2 (C) / 95.4 (F) Weight: 218 lbs 12/18/2017 Blood Pressure 1: 128/86 Code: 8480-6 BMI: 37.8 Code: 63038-8 Heart Rate 1: 84 bpm Height: 5'4" [...] 1: 128/82 Code: 8480-6 BMI: 35.5 Code: 51401-3 Heart Rate 1: 84 bpm Height: 5'4" [...] 1: 128/82 Code: 8480-6 BMI: 30.2 Code: 79660-9 Heart Rate 1: 80 bpm Height: 5'4" [...] 1: 128/86 Code: 8480-6 BMI: 32.8 Code: 83409-4 Heart Rate 1: 66 bpm Height: 5'4" Respiratory Rate: 18 bpm Temperature: 36 .3 (C) / 97.3 (F) Weight: 191 lbs 06/23/2013 Blood Pressure 1: 132/94 Code: 8480-6 BMI: 34.0 Code: 66079-3 Heart Rate 1: 84 bpm Height: 5'4" Respiratory Rate: 20 bpm Temperature: 36 .8 (C) / 98.2 (F) Weight: 198 lbs 05/26/2013 Blood Pressure 1: 114/80 Code: 8480-6 BMI: 35.0 Code: 23823-8 Heart Rate 1: 80 bpm Height: 5'4" Respiratory Rate: 20 bpm Temperature: 36 .4 (C) / 97.6 (F) Weight: 204 lbs 04/16/2013 Blood Pressure 1: 114/82 Code: 8480-6 BMI: 36.7 Code: 05004-5 Heart Rate 1: 84 bpm Height: 5'4" Respiratory Rate: 20 bpm Temperature: 36 .7 (C) / 98.0 (F) Weight: 214 lbs 03/05/2013 Blood Pressure 1: 136/90 Code: 8480-6 BMI: 37.1 Code: 48269-5 Heart Rate 1: 84 bpm Height: 5'4" [...] 1: 168/114 Code: 8480-6 BMI: 36.2 Code: 02347-5 Heart Rate 1: 104 bpm Height: 5'4" Respiratory Rate: 20 bpm Temperature: 36 .8 (C) / 98.2 (F) Weight: 211 lbs 11/22/2012 Blood Pressure 1: 128/90 Code: 8480-6 Heart Rate 1: 88 bpm Respiratory Rate: 20 bpm SpO2: 96% Temperature: 36.8 (C) / 98.2 (F) 11/21/2012 Blood Pressure 1: 146/100 Code: 8480-6 BMI: 35.7 Code: 66424-9 Heart Rate 1: 96 bpm Height: 5'4" [...] 1: 138/100 Code: 8480-6 BMI: 35.7 Code: 19900-9 Heart Rate 1: 96 bpm Height: 5'4" Respiratory Rate: 20 bpm Temperature: 36 .8 (C) / 98.2 (F) Weight: 208 lbs 05/06/2012 Blood Pressure 1: 154/102 Code: 8480-6 BMI: 34.7 Code: 17392-3 Heart Rate 1: 116 bpm Height: 5'4" Respiratory Rate: 20 bpm Temperature: 36 .8 (C) / 98.2 (F) Weight: 202 lbs 04/03/2012 Blood Pressure 1: 134/94 Code: 8480-6 BMI: 34.8 Code: 00520-5 Heart Rate 1: 108 bpm Height: 5'4" Respiratory Rate: 20 bpm Temperature: 36 .8 (C) / 98.2 (F) Weight: 203 lbs 03/19/2012 Blood Pressure 1: 148/106 Code: 8480-6 BMI: 35.0 Code: 77594-2 Heart Rate 1: 100 bpm Height: 5'4" Respiratory Rate: 20 bpm Temperature: 36 .6 (C) / 97.9 (F) Weight: 204 lbs 02/22/2012 Blood Pressure 1: 146/94 Code: 8480-6 He art Rate 1: 88 bpm 02/21/2012 Blood Pressure 1: 172/120 Code: 8480-6 B lood Pressure 2: 152/106 Code: 8480-6 Heart Rate 1: 116 bpm 02/20/2012 Blood Pressure 1: 160/100 Code: 8480-6 BMI: 32.0 Code: 39597-2 Heart Rate 1: 84 bpm Height: 5'7" Temperature: 36.5 (C) / 97.7 (F) Weight: 204 lbs 01/30/2012 Blood Pressure 1: 152/110 Code: 8480-6 BMI: 32.0 Code: 58481-6 Heart Rate 1: 116 bpm Height: 5'7" Respiratory Rate: 20 bpm Temperature: 37 .0 (C) / 98.6 (F) Weight: 204 lbs 01/24/2012 Blood Pressure 1: 146/100 Code: 8480-6 BMI: 32.0 Code: 57203-0 Heart Rate 1: 100 bpm Height: 5'7" Respiratory Rate: 20 bpm Temperature: 36 .7 (C) / 98.0 (F) Weight: 204 lbs 01/10/2012 Blood Pressure 1: 156/94 Code: 8480-6 BMI: 32.6 Code: 25557-5 Heart Rate 1: 72 bpm Height: 5'7" Respiratory Rate: 20 bpm Temperature: 36 .8 (C) / 98.2 (F) Weight: 208 lbs 12/11/2011 Blood Pressure 1: 146/100 Code: 8480-6 Heart Rat e 1: 116 bpm Height: 5'7" Respiratory Rate: 20 bpm Temperature: 36.9 (C) / 98.4 (F) We ight: 11/09/2011 Blood Pressure 1: 148/96 Code: 8480-6 BMI: 32.1 Code: 41772-4 Heart Rate 1: 116 bpm Height: 5'7" Respiratory Rate: 20 bpm Temperature: 36 .7 (C) / 98.0 (F) Weight: 205 lbs 09/13/2011 Blood Pressure 1: 126/88 Code: 8480-6 Heart Rate 1: 88 bpm Height: 5'7" Respiratory Rate: 20 bpm Temperature: 36.9 (C) / 98.4 (F) We ight: 08/31/2011 Blood Pressure 1: 118/82 Code: 8480-6 BMI: 32.0 Code: 13409-9 Heart Rate 1: 80 bpm Height: 5'7" Temperature: 36.4 (C) / 97.6 (F) Weight: 204 lbs 07/06/2011 Blood Pressure 1: 128/86 Code: 8480-6 BMI: 30.9 Code: 35521-5 Heart Rate 1: 92 bpm Height: 5'7" Respiratory Rate: 20 bpm Temperature: 36 .9 (C) / 98.4 (F) Weight: 197 lbs 06/06/2011 Blood Pressure 1: 112/74 Code: 8480-6 BMI: 31.0 Code: 17546-3 Heart Rate 1: 72 bpm Height: 5'7" [...] 1: 128/92 Code: 8480-6 BMI: 33.6 Code: 40863-9 Heart Rate 1: 104 bpm Height: 5'4" [...] Check-up Encounters Encounter Performer Location Codes Date ([id number]) OFFICE/OUTPATIENT VISIT EST Diagnosis: Essential (primary) hypertension[ICD10: I10] Diagnosis: Fall from bed, sequela[ICD10: W06.XXXS] María Elena BRAUNGAEL Fabiola APPIAH DO [facility] CPT-4: 73639 05/28/2019 ([id number]) NURSE/OUTPATIENT VISIT EST Diagnosis: Essential (primary) hypertension[ICD10: I10] María Elena [facility] DO [facility] CPT-4: 79852 05/19/2019 ([id number]) OFFICE/OUTPATIENT VISIT EST Diagnosis: Essential (primary) hypertension[ICD10: I10] Diagnosis: Type 2 diabetes mellitus with hyperglycemia[ICD10: E11.65] Diagnosis: Intervertebral disc disorders with radiculopathy, 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] Diagnosis: Hormone replacement therapy[ICD10: Z79.890] María Elena ELLISLINE Fabiola [facility] DO [facility] CPT-4: 30702 01/22/2019 ([id number]) OFFICE/OUTPATIENT VISIT EST Diagnosis: Essential (primary) hypertension[ICD10: I10] Diagnosis: Type 2 diabetes mellitus with hyperglycemia[ICD10: E11.65] María Elena APPIAH [facility] CPT-4: 80081 09/30/2018 ([id number]) OFFICE/OUTPATIENT VISIT EST Diagnosis: Pain in left elbow[ICD10: M25.522] Diagnosis: Acute stress reaction[ICD10: F43.0] Diagnosis: Primary insomnia[ICD10: F51.01] Diagnosis: Abnormal weight gain[ICD10: R63.5] María Elena Seamusdawn MONTEROAPARNACIARRA JEAN Fabiola APPIAH [facility] CPT-4: 82836 08/27/2018 ([id number]) OFFICE/OUTPATIENT VISIT EST Diagnosis: Acute recurrent sinusitis, unspecified[ICD10: J01.91] Diagnosis: Follicular disorder, unspecified[ICD10: L73.9] Diagnosis: Tinea corporis[ICD10: B35.4] María Elenamarcella ELLISLINE Fabiola APP[facility] CPT-4: 78295 08/09/2018 ([id number]) OFFICE/OUTPATIENT VISIT EST Diagnosis: Tinea corporis[ICD10: B35.4] Diagnosis: Anxiety disorder, unspecified[ICD10: F41.9] Diagnosis: Menopausal and female climacteric states[ICD10: N95.1] María Elena APPIA[facility] DO [facility] CPT-4: 35784 07/22/2018 ([id number]) NURSE/OUTPATIENT VISIT EST Diagnosis: Cellulitis of right toe[ICD10: L03.031] María Elena [facility] DO [facility] CPT-4: 57754 06/19/2018 ([id number]) OFFICE/OUTPATIENT VISIT EST Diagnosis: Cellulitis of right toe[ICD10: L03.031] Kathleen APPIAH DO [facility] CPT-4: 14594 06/17/2018 ([id number]) OFFICE/OUTPATIENT VISIT EST Diagnosis: Migraine without aura, intractable, without status migrainosus[ICD10: G43.019] Diagnosis: Zoster without complications[ICD10: B02.9] Kathleen APPIA[facility] DO [facility] CPT-4: 00942 05/16/2018 ([id number]) OFFICE/OUTPATIENT VISIT EST Diagnosis: Cellulitis of right lower limb[ICD10: L03.115] Kathleen [facility] DO [facility] CPT-4: 68945 03/20/2018 ([id number]) OFFICE/OUTPATIENT VISIT EST Diagnosis: Cellulitis of right lower limb[ICD10: L03.115] Kathleen [facility] DO [facility] CPT-4: 99940 03/18/2018 ([id number]) OFFICE/OUTPATIENT VISIT EST Diagnosis: Cellulitis of right lower limb[ICD10: L03.115] Kathleen [facility] DO [facility] CPT-4: 15682 03/15/2018 ([id number]) OFFICE/OUTPATIENT VISIT EST Diagnosis: Acute sinusitis, unspecified[ICD10: J01.90] Kathleen [facility] DO [facility] CPT-4: 39948 02/11/2018 ([id number]) NURSE/OUTPATIENT VISIT EST Diagnosis: Otitis media, unspecified, right ear[ICD10: H66.91] María Elena APPIAH [facility] CPT-4: 03228 02/01/2018 ([id number]) OFFICE/OUTPATIENT VISIT EST Diagnosis: Acute suppurative otitis media without spontaneous rupture of ear drum, left ear[ICD10: H66.002] Diagnosis: Abnormal weight gain[ICD10: R63.5] Diagnosis: Intervertebral disc disorders with radiculopathy, 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] Kathleen APPIAH DO [facility] CPT-4: 99 214 01/30/2018 ([id number]) PREV VISIT EST AGE 40-64 Diagnosis: Encounter for general adult medical examination without abnormal findings[ICD10: Z00.00] Diagnosis: Essential (primary) hypertension[ICD10: I10] Diagnosis: Mixed hyperlipidemia[ICD10: E78.2] Diagnosis: Type 2 diabetes mellitus with hyperglycemia[ICD10: E11.65] Diagnosis: 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] María Elena APPIAH [facility] CPT-4: 80951 12/18/2017 ([id number]) OFFICE/OUTPATIENT VISIT EST Diagnosis: Cellulitis of right toe[ICD10: L03.031] Diagnosis: Mixed hyperlipidemia[ICD10: E78.2] Diagnosis: Essential (primary) hypertension[ICD10: I10] Diagnosis: Hyperglycemia, unspecified[ICD10: R73.9] Diagnosis: Nontoxic goiter, 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] María Elena APPIAH [facility] CPT-4: 63626 12/10/2017 ([id number]) OFFICE/OUTPATIENT VISIT EST Diagnosis: Cellulitis of right toe[ICD10: L03.031] Diagnosis: Acute sinusitis, unspecified[ICD10: J01.90] Kathleen APPIAH [facility] CPT-4: 85612 12/07/2017 OFFICE/OUTPATIENT VISIT EST Diagnosis: Acute maxillary sinusitis, unspecified[ICD10: J01.00] Kathleen APPIAH DO [facility] CPT-4: 40318 10/08/2017 ([id number]) OFFICE/OUTPATIENT VISIT EST Diagnosis: Cellulitis of left toe[ICD10: L03.032] María Elena APPIAH [facility] CPT-4: 68224 09/21/2017 ([id number]) OFFICE/OUTPATIENT VISIT EST Diagnosis: Insomnia, unspecified[ICD10: G47.00] Diagnosis: Major depressive disorder, single episode, unspecified[ICD10: F32.9] Diagnosis: Anxiety disorder, unspecified[ICD10: F41.9] Diagnosis: Cellulitis of left toe[ICD10: L03.032] Diagnosis: Snoring[ICD10: R06.83] Kathleen APPIAH DO [facility] CPT-4: 50541 09/20/2017 ([id number]) OFFICE/OUTPATIENT VISIT EST Diagnosis: Cellulitis of left toe[ICD10: L03.032] María Elena Waymindivictorino ORTA [facility] CPT-4: 43279 07/19/2017 OFFICE/OUTPATIENT VISIT EST Diagnosis: Chronic sinusitis, unspecified[ICD10: J32.9] Diagnosis: Generalized hyperhidrosis[ICD10: R61] Kathleen APPIAH [facility] CPT-4: 08228 06/27/2017 ([id number]) OFFICE/OUTPATIENT VISIT EST Diagnosis: Intervertebral disc disorders with radiculopathy, 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] Diagnosis: Primary insomnia[ICD10: F51.01] Diagnosis: Other fatigue[ICD10: R53.83] María Elena JUARES AlanJj MARIVEL [facility] CPT-4: 09564 04/10/2017 ([id number]) OFFICE/OUTPATIENT VISIT EST Diagnosis: Primary insomnia[ICD10: F51.01] Diagnosis: Localized edema[ICD10: R60.0] Diagnosis: 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] María Elena JUARES AlanJj [facility] CPT-4: 39293 12/13/2016 ([id number]) OFFICE/OUTPATIENT VISIT EST Diagnosis: Primary insomnia[ICD10: F51.01] Diagnosis: Cyanosis[ICD10: R23.0] María Elena JUARES AlanJj SEAMUSGALINA [facility] CPT-4: 24691 11/01/2016 ([id number]) PREV VISIT EST AGE 40-64 Diagnosis: Encounter for gynecological examination (general) (routine) without abnormal findings[ICD10: Z01.419] Diagnosis: Encounter for routine child health examination without abnormal findings[ICD10: Z00.129] María Elena APPIAH DO [employer] CPT-4: 86032 10/17/2016 ([id number]) OFFICE/OUTPATIENT VISIT EST Diagnosis: Other seasonal allergic rhinitis[ICD10: J30.2] María Elena APPIAH DO [employer] CPT-4: 45003 10/10/2016 ([id number]) OFFICE/OUTPATIENT VISIT EST Diagnosis: Pain in left arm[ICD10: M79.602] Diagnosis: Contact with and (suspected) exposure to potentially hazardous body fluids[ICD10: Z77.21] Diagnosis: 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, 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] Diagnosis: Unspecified open wound, right foot, sequela[ICD10: S91.301S] María Elena APPIAH DO [employer] CPT-4: 51582 09/19/2016 ([id number]) OFFICE/OUTPATIENT VISIT EST Diagnosis: Chronic sinusitis, unspecified[ICD10: J32.9] Diagnosis: Allergic rhinitis due to pollen[ICD10: J30.1] María Elena APPIAH [employer] CPT-4: 66745 08/24/2016 ([id number]) OFFICE/OUTPATIENT VISIT EST Diagnosis: Acute bronchitis, unspecified[ICD10: J20.9] María Elena APPIAH DO [employer] CPT-4: 18753 08/16/2016 ([id number]) OFFICE/OUTPATIENT VISIT EST Diagnosis: Otitis media, unspecified, right ear[ICD10: H66.91] Diagnosis: Acute bronchitis, unspecified[ICD10: J20.9] María Elena APPIAH DO [employer] CPT-4: 63255 08/10/2016 ([id number]) OFFICE/OUTPATIENT VISIT EST Diagnosis: Acute recurrent sinusitis, unspecified[ICD10: J01.91] Diagnosis: Allergic rhinitis due to pollen[ICD10: J30.1] María Elena APPIAH DO [facility] CPT-4: 03971 08/02/2016 ([id number]) OFFICE/OUTPATIENT VISIT EST Diagnosis: Pain in unspecified joint[ICD10: M25.50] María Elena APPIAH DO [facility] CPT-4: 41888 07/27/2016 OFFICE/OUTPATIENT VISIT EST Diagnosis: 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] Diagnosis: Acute recurrent sinusitis, unspecified[ICD10: J01.91] Diagnosis: Other fatigue[ICD10: R53.83] Diagnosis: Primary insomnia[ICD10: F51.01] Diagnosis: Pain in unspecified joint[ICD10: M25.50] María Elena APPIAH DO [facility] CPT-4: 65295 07/20/2016 ([id number]) OFFICE/OUTPATIENT VISIT EST Diagnosis: Blister (nonthermal), left great toe, initial encounter[ICD10: S90.422A] Loan APPIAH [facility] CPT-4: 40455 ([id number]) OFFICE/OUTPATIENT VISIT EST Diagnosis: Acute recurrent sinusitis, unspecified[ICD10: J01.91] María Elena APPIAH DO [facility] CPT-4: 42870 05/25/2016 ([id number]) OFFICE/OUTPATIENT VISIT EST Diagnosis: Acute sinusitis, unspecified[ICD10: J01.90] María Elena APPIAH DO [facility] CPT-4: 10275 04/26/2016 ([id number]) OFFICE/OUTPATIENT VISIT EST Diagnosis: Flushing[ICD10: R23.2] Diagnosis: Primary insomnia[ICD10: F51.01] María Elena APPIAH DO [facility] CPT-4: 88337 03/02/2016 ([id number]) OFFICE/OUTPATIENT VISIT EST Diagnosis: Other seasonal allergic rhinitis[ICD10: J30.2] Loan APPIAH DO [facility] CPT-4: 64437 02/09/2016 ([id number]) OFFICE/OUTPATIENT VISIT EST Diagnosis: Primary insomnia[ICD10: F51.01] Diagnosis: Urinary tract infection, site not specified[ICD10: N39.0] María Elena APPIAH [facility] CPT-4: 26108 01/24/2016 ([id number]) OFFICE/OUTPATIENT VISIT EST Diagnosis: Other specified disorders of Eustachian tube, bilateral[ICD10: H69.83] Diagnosis: Allergic rhinitis, unspecified[ICD10: J30.9] Loan APPIAH [facility] CPT-4: 09461 12/23/2015 ([id number]) OFFICE/OUTPATIENT VISIT EST Diagnosis: Acute recurrent sinusitis, unspecified[ICD10: J01.91] Diagnosis: 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] Diagnosis: Allergic rhinitis, unspecified[ICD10: J30.9] María Elena APPIAH [facility] CPT-4: 55888 12/08/2015 ([id number]) OFFICE/OUTPATIENT VISIT EST Diagnosis: Allergic rhinitis, unspecified[ICD10: J30.9] Diagnosis: Pain in unspecified joint[ICD10: M25.50] María Elena APPIAH [facility] CPT-4: 10655 10/07/2015 ([id number]) OFFICE/OUTPATIENT VISIT EST Diagnosis: Essential (primary) hypertension[ICD10: I10] María Elena APPIAH [facility] CPT-4: 93843 10/06/2015 OFFICE/OUTPATIENT VISIT EST Diagnosis: Localized enlarged lymph nodes[ICD10: R59.0] Diagnosis: Local infection of the skin and subcutaneous tissue, unspecified[ICD10: L08.9] June Flores MARÍA ELENA APPIAH [facility] CPT- 4: 64602 09/14/2015 ([id number]) OFFICE/OUTPATIENT VISIT EST Diagnosis: Essential (primary) hypertension[ICD10: I10] Diagnosis: Actinic keratosis[ICD10: L57.0] María Elena APPIAH [facility] CPT-4: 60907 09/07/2015 ([id number]) OFFICE/OUTPATIENT VISIT EST Diagnosis: Essential (primary) hypertension[ICD10: I10] Diagnosis: Acute stress reaction[ICD10: F43.0] María Elena APPIAH DO [facility] CPT-4: 89927 08/18/2015 ([id number]) OFFICE/OUTPATIENT VISIT EST Diagnosis: Essential (primary) hypertension[ICD10: I10] María Elena APPIAH DO [facility] CPT-4: 79911 07/07/2015 ([id number]) OFFICE/OUTPATIENT VISIT EST Diagnosis: Essential (primary) hypertension[ICD10: I10] María Elena APPIAH DO [facility] CPT-4: 08116 06/24/2015 ([id number]) OFFICE/OUTPATIENT VISIT EST Diagnosis: Essential (primary) hypertension[ICD10: I10] María Elena APPIAH DO [facility] CPT-4: 55827 06/21/2015 ([id number]) OFFICE/OUTPATIENT VISIT EST Diagnosis: Essential (primary) hypertension[ICD10: I10] Diagnosis: Mixed hyperlipidemia[ICD10: E78.2] Diagnosis: Acute stress reaction[ICD10: F43.0] Diagnosis: Primary insomnia[ICD10: F51.01] María Elena APPIAH DO [facility] CPT-4: 95716 06/16/2015 ([id number]) OFFICE/OUTPATIENT VISIT EST Diagnosis: INSOMNIA NOS[ICD9: 780.52] Diagnosis: HYPERTENSION[ICD9: 401.9] Diagnosis: Stress reaction[ICD9: 308.9] María Elena APPIAH DO [facility] CPT-4: 90529 06/02/2015 ([id number]) OFFICE/OUTPATIENT VISIT EST Diagnosis: HYPERTENSION[ICD9: 401.9] Diagnosis: Stress reaction[ICD9: 308.9] María Elena [facility]IAH DO [facility] CPT-4: 35905 05/20/2015 ([id number]) OFFICE/OUTPATIENT VISIT EST Diagnosis: Skin lesion[ICD9: 709.9] 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] María Elena [facility]IAH DO [facility] CPT-4: 12063 05/10/2015 ([id number]) OFFICE/OUTPATIENT VISIT EST Diagnosis: SINUSITIS, ACUTE[ICD9: 461.9] Diagnosis: ALLERGIC RHINITIS[ICD9: 477.9] Diagnosis: DERMATITIS NOS[ICD9: 692.9] María Elena REHMAN [facility] CPT-4: 02376 03/16/2015 OFFICE/OUTPATIENT VISIT EST Diagnosis: Otitis media[ICD9: 382.9] Diagnosis: SINUSITIS, ACUTE[ICD9: 461.9] June APPIAH [facility] CPT-4: 76962 09/11/2014 ([id number]) OFFICE/OUTPATIENT VISIT EST Diagnosis: HYPERLIPIDEMIA NEC/NOS[ICD9: 272.4] María Elena APPIAH DO [facility] CPT-4: 34763 08/31/2014 ([id number]) OFFICE/OUTPATIENT VISIT EST Diagnosis: - I - HYPERTENSION[ICD9: 401.9] Diagnosis: HYPERLIPIDEMIA NEC/NOS[ICD9: 272.4] María Elena APPIAH [facility] CPT-4: 34384 08/27/2014 ([id number]) OFFICE/OUTPATIENT VISIT EST Diagnosis: ABDOMINAL PAIN[ICD9: 789.00] Diagnosis: DYSPEPSIA[ICD9: 536.8] Diagnosis: Thoracic back pain[ICD9: 724.1] María Elena APPIAH [facility] CPT-4: 51520 07/21/2014 ([id number]) OFFICE/OUTPATIENT VISIT EST Diagnosis: ALLERGIC RHINITIS[ICD9: 477.9] María Elena APPIAH DO [facility] CPT-4: 98787 07/15/2014 ([id number]) OFFICE/OUTPATIENT VISIT EST Diagnosis: EDEMA[ICD9: 782.3] Diagnosis: Chronic insomnia[ICD9: 780.52] María Elena APPIAH DO [facility] CPT-4: 77466 05/18/2014 ([id number]) OFFICE/OUTPATIENT VISIT EST Diagnosis: Thyromegaly[ICD9: 240.9] Diagnosis: - I - HYPERTENSION[ICD9: 401.9] Diagnosis: ROUTINE MEDICAL EXAM[ICD9: V70.0] Diagnosis: EDEMA[ICD9: 782.3] María Elena APPIAH [facility] CPT-4: 65322 05/14/2014 OFFICE/OUTPATIENT VISIT EST Diagnosis: BRONCHITIS, ACUTE[ICD9: 466.0] Diagnosis: SINUSITIS, ACUTE[ICD9: 461.9] María Elena APPIAH [facility] CPT-4: 87927 04/21/2014 OFFICE/OUTPATIENT VISIT EST Diagnosis: SINUSITIS, ACUTE[ICD9: 461.9] June Gabriellafatimah APPIAH [facility] CPT-4: 68932 03/04/2014 ([id number]) OFFICE/OUTPATIENT VISIT EST Diagnosis: VACCINE FOR TDAP[ICD10: Z23] María Elena [facility] CPT-4: 94378 02/27/2014 ([id number]) OFFICE/OUTPATIENT VISIT EST Diagnosis: Seborrheic keratoses, inflamed[ICD9: 702.11] Diagnosis: ACTINIC KERATOSIS[ICD9: 702.0] Diagnosis: INSOMNIA NOS[ICD9: 780.52] María Elena [facility] CPT-4: 47008 01/13/2014 OFFICE/OUTPATIENT VISIT EST Diagnosis: EUSTACHIAN TUBE DYSFUNCTION[ICD9: 381.81] Diagnosis: ALLERGIC RHINITIS[ICD9: 477.9] Diagnosis: Serous otitis media[ICD9: 381.4] María Elena [facility] CPT-4: 12002 12/24/2013 ([id number]) OFFICE/OUTPATIENT VISIT EST Diagnosis: SINUSITIS, ACUTE[ICD9: 461.9] Diagnosis: ALLERGIC RHINITIS[ICD9: 477.9] Diagnosis: EUSTACHIAN TUBE DYSFUNCTION[ICD9: 381.81] María Elena [facility] CPT-4: 67114 11/12/2013 ([id number]) OFFICE/OUTPATIENT VISIT EST Diagnosis: ALLERGIC RHINITIS[ICD9: 477.9] Diagnosis: SINUSITIS, ACUTE[ICD9: 461.9] María Elena [facility] CPT-4: 60964 10/21/2013 ([id number]) OFFICE/OUTPATIENT VISIT EST Diagnosis: ASYMPTOMATIC VARICOSE VEINS[ICD9: 454.9] Diagnosis: INSOMNIA NOS[ICD9: 780.52] María Elena [facility] CPT-4: 54033 09/22/2013 OFFICE/OUTPATIENT VISIT EST Diagnosis: SINUSITIS, ACUTE[ICD9: 461.9] June Sandra [facility] CPT-4: 04690 08/27/2013 ([id number]) OFFICE/OUTPATIENT VISIT EST Diagnosis: CEPHALGIA[ICD9: 784.0] Diagnosis: CEPHALGIA, TENSION[ICD9: 307.81] 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] María Elena [facility] CPT-4: 77578 08/04/2013 ([id number]) OFFICE/OUTPATIENT VISIT EST Diagnosis: Cervicalgia[ICD9: 723.1] Diagnosis: SPASM OF MUSCLE[ICD9: 728.85] Diagnosis: CEPHALGIA, TENSION[ICD9: 307.81] María Elena [facility] CPT-4: 96666 07/23/2013 ([id number]) OFFICE/OUTPATIENT VISIT EST Diagnosis: 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] Diagnosis: ALLERGIC RHINITIS[ICD9: 477.9] María Elena [facility] CPT-4: 98176 06/23/2013 ([id number]) OFFICE/OUTPATIENT VISIT EST Diagnosis: ALLERGIC RHINITIS[ICD9: 477.9] Diagnosis: ACUTE SEROUS OTITIS MEDIA[ICD9: 381.01] 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] María Elena [facility] CPT-4: 70025 05/26/2013 ([id number]) OFFICE/OUTPATIENT VISIT EST Diagnosis: HYPERTENSION[ICD9: 401.9] Diagnosis: EDEMA[ICD9: 782.3] Diagnosis: Serous otitis media[ICD9: 381.4] María Elena JUARES AlanJj [facility] 46121 04/16/2013 ([id number]) OFFICE/OUTPATIENT VISIT EST Diagnosis: SINUSITIS, ACUTE[ICD9: 461.9] Diagnosis: ALLERGIC RHINITIS[ICD9: 477.9] Diagnosis: EDEMA[ICD9: 782.3] Diagnosis: Thyromegaly[ICD9: 240.9] Diagnosis: MALAISE AND FATIGUE[ICD9: 780.79] María Elena Lopez Fabiola [facility]: 43223 03/05/2013 ([id number]) OFFICE/OUTPATIENT VISIT EST Diagnosis: PAIN, LOWER BACK[ICD9: 724.2] Diagnosis: SPASM OF MUSCLE[ICD9: 728.85] María Elena JUARES AlanJj [facility] CPT-4: 96475 12/23/2012 OFFICE/OUTPATIENT VISIT EST Diagnosis: Low back pain[ICD9: 724.2] Lashawn Hicks KRISTYN [facility] CPT-4: 47509 12/16/2012 ([id number]) OFFICE/OUTPATIENT VISIT EST Diagnosis: PAIN, LOWER BACK[ICD9: 724.2] Diagnosis: SCIATICA[ICD9: 724.3] Diagnosis: Lumbar herniated disc[ICD9: 722.10] María Elena COLON AlanJj [facility] CPT-4: 91265 12/09/2012 ([id number]) OFFICE/OUTPATIENT VISIT EST Diagnosis: PAIN, LOWER BACK[ICD9: 724.2] Diagnosis: SCIATICA[ICD9: 724.3] Diagnosis: LUMBAR DISC DISPLACEMENT[ICD9: 722.10] María Elena MARIN AlanJj [facility]PT[facility]: 42073 12/04/2012 OFFICE/OUTPATIENT VISIT EST Diagnosis: Pneumonia[ICD9: 486] Mary JUARES AlanJj [facility] CPT-4: 61274 11/22/2012 ([id number]) OFFICE/OUTPATIENT VISIT EST Diagnosis: PNEUMONIA, ORGANISM[ICD9: 486] Diagnosis: Exacerbation of RAD (reactive airway disease)[ICD9: 493.92] María Elenamarcella APPIAH DO [facility] CPT-4: 60387 11/21/2012 OFFICE/OUTPATIENT VISIT EST Diagnosis: HYPERTENSION[ICD9: 401.9] Diagnosis: Cephalgia[ICD9: 784.0] Lashawn APPIAH DO [facility] CPT-4: 13737 10/29/2012 ([id number]) OFFICE/OUTPATIENT VISIT EST Diagnosis: MALAISE AND FATIGUE[ICD9: 780.79] Diagnosis: ARTHRALGIA-MULTIPLE SITES[ICD9: 719.49] María Elena APPIAH DO [facility] CPT-4: 69447 10/14/2012 ([id number]) OFFICE/OUTPATIENT VISIT EST Diagnosis: URINARY FREQUENCY[ICD9: 788.41] María Elena APPIAH DO [facility] CPT-4: 43631 09/27/2012 ([id number]) OFFICE/OUTPATIENT VISIT EST Diagnosis: MALAISE AND FATIGUE[ICD9: 780.79] Diagnosis: ARTHRALGIA-MULTIPLE SITES[ICD9: 719.49] María Elena APPIAH DO [facility] CPT-4: 39454 09/25/2012 ([id number]) OFFICE/OUTPATIENT VISIT EST Diagnosis: SINUSITIS, ACUTE[ICD9: 461.9] Diagnosis: EUSTACHIAN TUBE DYSFUNCTION[ICD9: 381.81] María Elena APPIAH DO [facility] CPT-4: 50997 08/29/2012 OFFICE/OUTPATIENT VISIT EST Diagnosis: ACTINIC KERATOSIS[ICD9: 702.0] Diagnosis: Inflamed seborrheic keratosis[ICD9: 702.11] Diagnosis: Skin cancer of face[ICD9: 173.31] Diagnosis: HYPERTENSION[ICD9: 401.9] María Elena Waymindivictorino ValdesJj SEAMUS [place] DO [facility] CPT-4: 94574 08/12/2012 ([id number]) OFFICE/OUTPATIENT VISIT EST Diagnosis: ARTHRALGIA-MULTIPLE SITES[ICD9: 719.49] Diagnosis: GOUT[ICD9: 274.9] Diagnosis: HYPERTENSION[ICD9: 401.9] Diagnosis: Tachycardia[ICD9: 785.0] María Elenagael MONTEROQUELINE AlanJj FRITZ REDDY [facility] CPT-4: 44937 05/06/2012 ([id number]) OFFICE/OUTPATIENT VISIT EST Diagnosis: INSOMNIA NOS[ICD9: 780.52] María Elena Seamusdawn JUARES AlanjJ KRISTYN PANDYA [facility] CPT-4: 43846 04/03/2012 ([id number]) OFFICE/OUTPATIENT VISIT EST Diagnosis: INSOMNIA NOS[ICD9: 780.52] Diagnosis: HYPERTENSION[ICD9: 401.9] Diagnosis: MIGRAINE NOS/NOT INTRCBL[ICD9: 346.90] María Elena MARIN AlanJj TD [facility] CPT-4: 67638 03/19/2012 ([id number]) OFFICE/OUTPATIENT VISIT EST Diagnosis: CELLULITIS[ICD9: 682.9] Diagnosis: Ankle pain[ICD9: 719.47] Diagnosis: HYPERTENSION[ICD9: 401.9] María Elena Seamusdawn JUARES AlanJj [facility] MOJICARose Mary [facility] CPT-4: 96476 02/20/2012 ([id number]) OFFICE/OUTPATIENT VISIT EST Diagnosis: MIGRAINE NOS/NOT INTRCBL[ICD9: 346.90] Diagnosis: Vomiting[ICD9: 787.03] María Elenamarcella JUARES AlanJj [facility] Rose Mary [facility] CPT-4: 72247 01/30/2012 ([id number]) OFFICE/OUTPATIENT VISIT EST Diagnosis: EDEMA[ICD9: 782.3] Diagnosis: HYPERTENSION[ICD9: 401.9] Diagnosis: ALLERGIC RHINITIS[ICD9: 477.9] Diagnosis: ARTHRALGIA-MULTIPLE SITES[ICD9: 719.49] María Elena REED AlanJj [facility] CPT-4: 38244 01/24/2012 ([id number]) OFFICE/OUTPATIENT VISIT EST Diagnosis: SPASM OF MUSCLE[ICD9: 728.85] Diagnosis: Thoracic back pain[ICD9: 724.1] Diagnosis: Cervical pain[ICD9: 723.1] María Elena Hicks KRISTYN PANDYA [facility] CPT-4: 10033 01/10/2012 OFFICE/OUTPATIENT VISIT EST Diagnosis: PAIN, LOWER BACK[ICD9: 724.2] Diagnosis: LUMBAR DISC DISPLACEMENT[ICD9: 722.10] María Elena MARIN AlanJj [facility] CPT-[facility]: 88673 12/11/2011 OFFICE/OUTPATIENT VISIT EST Diagnosis: MIGRAINE NOS/NOT INTRCBL[ICD9: 346.90] Diagnosis: SINUSITIS, ACUTE[ICD9: 461.9] María Elena MONTEROQUELINE AlanJj TD [facility] CPT-4: 12516 11/09/2011 OFFICE/OUTPATIENT VISIT EST Diagnosis: MIGRAINE NOS/NOT INTRCBL[ICD9: 346.90] Diagnosis: LYMPHADENOPATHY[ICD9: 785.6] María Elena ELLISLINE AlanJj TD [facility] CPT-4: 34513 09/13/2011 OFFICE/OUTPATIENT VISIT EST Diagnosis: MALAISE AND FATIGUE[ICD9: 780.79] Diagnosis: ARTHRALGIA-MULTIPLE SITES[ICD9: 719.49] María Elena Seamusdawn MONTERO APARNAGAEL AlanJj [facility]VI[facility]INO [facility] CPT-4: 06207 08/31/2011 OFFICE/OUTPATIENT VISIT EST Diagnosis: SINUSITIS, ACUTE[ICD9: 461.9] María Elena Oredawn JUARES AlanJj [facility] CPT-[facility]: 40831 07/20/2011 OFFICE/OUTPATIENT VISIT EST Diagnosis: HYPERTENSION[ICD9: 401.9] Diagnosis: PAIN, LOWER BACK[ICD9: 724.2] Diagnosis: SPASM OF MUSCLE[ICD9: 728.85] María Elena Appiah MARÍA ELENA AlanJj TD [facility] CPT-4: 15911 07/06/2011 OFFICE/OUTPATIENT VISIT EST Diagnosis: MIGRAINE NOS/NOT INTRCBL[ICD9: 346.90] Diagnosis: HYPERTENSION[ICD9: 401.9] María Elena Seamusdawn Hicks SEAMUS DAWN [facility] CPT-4: 36494 05/22/2011 OFFICE/OUTPATIENT VISIT EST Diagnosis: SINUSITIS, ACUTE[ICD9: 461.9] Diagnosis: MIGRAINE NOS/NOT INTRCBL[ICD9: 346.90] Diagnosis: Dehydration[ICD9: 276.51] Diagnosis: Vomiting[ICD9: 787.03] María Elena Hicks [facility] CPT-4: 34754 05/09/2011 ([id number]) OFFICE/OUTPATIENT VISIT EST María Elena Orender [facility] CPT-4: 57067 02/14/2011 ([id number]) OFFICE/OUTPATIENT VISIT EST María Elena Ortaer [facility] CPT-4: 05030 02/03/2011 ([id number]) OFFICE/OUTPATIENT VISIT EST María Elenamarcella Ortaer [facility] CPT-4: 64135 01/31/2011 ([id number]) OFFICE/OUTPATIENT VISIT EST María Elenamarcella Ortaer [facility] CPT-4: 57998 01/25/2011 ([id number]) OFFICE/OUTPATIENT VISIT EST María Elenamarcella Ortaer [facility] CPT-4: 13238 01/18/2011 ([id number]) OFFICE/OUTPATIENT VISIT EST María Elena Ortaer [facility] CPT-4: 71058 11/29/2010 ([id number]) OFFICE/OUTPATIENT VISIT, EST María Elena Ortaer [facility] CPT-4: 04627 10/10/2010 ([id number]) OFFICE/OUTPATIENT VISIT, EST María Elenamarcella Ortaer [facility] CPT-4: 98530 06/07/2010 ([id number]) OFFICE/OUTPATIENT VISIT, EST María Elena Ortaer [facility] CPT-4: 69774 04/27/2010 ([id number]) OFFICE/OUTPATIENT VISIT, EST María Elena MONTERO [facility] CPT-4: 46416 04/05/2010 ([id number]) OFFICE/OUTPATIENT VISIT, EST María Elenamarcella Ortaer [facility] CPT-4: 97763 03/09/2010 ([id number]) OFFICE/OUTPATIENT VISIT, EST María Elenamacrella Ortaer [facility] CPT-4: 21687 03/03/2010 ([id number]) OFFICE/OUTPATIENT VISIT, EST María Elena Ortaer [facility] CPT-4: 67699 01/17/2010 ([id number]) PREV VISIT, EST, AGE 40-64 María Elena MONTEROMICHAEL ValdesJj APPIAH DO [facility] CPT-4: 22054 12/27/2009 Plan of Care Planned Activity Notes Codes Status Date Appointment: María Elena Appiahtel: [facility] [place] Won't have the new insurance till Sep 10. CANCELE D 07/24/2019 Visit Diagnosis Plan: Essential (primary) hypertension Discussion: Stable Will have insurance in July and do lab then ICD-9 : 401.9 ICD-10 : I10 05/28/2019 Visit Diagnosis Plan: Fall from bed, sequela Discussio n: DC gabapentin Decrease baclofen to 10mg TID prn ICD-9 : E929.3 ICD-10 : W06.XXXS 05/28/2019 Appointment: Maraí Elena Appiah WPtel: [address] [place], [place] [phone] [place] FOLLOW UP 05/28/2019 Appointment: María Elena Appiah WPtel: [address] [place], [place] [phone] [place] BP CHECK 05/19/2019 Visit Diagnosis Plan: [...] Z79.890 01/22/2019 Appointment: María Elena Appiah WPtel: [address] [place], [place] [phone] [place] FOLLOW UP 01/22/2019 Patient Education: estradiol- [employer] Coupon [id number] https://www.[employer]/samplemd/resources/getResource/61/562e035o-9up6-9x32-0z Completed 01/22/2019 Appointment: María Elena Appiah WPtel: [address] [place], [place] [phone] [place] CANCELED 01/20/2019 Appointment: María Elena Appiah WPtel: [address] [place], [place] [phone] [place] LM NO SHOW 01/06/2019 Appointment: María Elena Appiah WPtel: [address] [place], [place] [phone] [place] CANCELED 10/17/2018 Appointment: María Elena Appiah WPtel: [address] [place], [place] [address] [place] BP CHECK 10/09/2018 Visit Diagnosis Plan: [...] I10 09/30/2018 Appointment: María Elena Appiah WPtel: [address] [place], [place] [phone] [place] FOLLOW UP 09/30/2018 Visit Diagnosis Plan: [...] 08/27/2018 Appointment: María Elena Appiah WPtel: [address] [place] [address] ACUTE ILLNESS 08/27/2018 Appointment: María Elena Appiah WPtel: [address] [place] [address] [place] Patient stated she went out to [...] Tyle... 08/09/2018 Appointment: María Elena Appiah WPtel: [address] [place] [address] ACUTE ILLNESS 08/09/2018 Appointment: María Elena Appiah WPtel: [address] [place] [address] NO SHOW 08/08/2018 Visit Diagnosis Plan: Anxiety [...] 07/22/2018 Appointment: María Elena Appiah WPtel: [phone] [facility] ACUTE ILLNESS 07/22/2018 Appointment: María Elena Appiah WPtel: [phone] [facility] [place] INJECTION 06/19/2018 Patient Education: Patient Medication [...] ICD-10 : L03.031 06/17/2018 Appointment: Kathleen Zuniga [address] [place] [address] ACUTE ILLNESS 06/17/2018 Patient Education: Patient Medication [...] ICD-10 : B02.9 05/16/2018 Appointment: Kathleen Zuniga [address] [place] [address] ACUTE ILLNESS 05/16/2018 Patient Education: Patient Medication [...] : L03.115 03/20/2018 Appointment: Kathleen Zuniga [address] [phone] FOLLOW UP 03/20/2018 Patient Education: Patient Medication [...] ICD-10 : L03.115 03/18/2018 Appointment: Kathleen Zuniga [address] [place], [place] [address] FOLLOW UP 03/18/2018 Patient Education: Patient Medication [...] : L03.115 03/15/2018 Appointment: Kathleen Zuniga [address] [phone] ACUTE ILLNESS 03/15/2018 Patient Education: Patient Medication [...] ICD-10 : J01.90 02/11/2018 Appointment: Kathleen Zuniga [address] [place] [address] ACUTE ILLNESS 02/11/2018 Patient Education: Patient Medication Summary Completed 02/11/2018 Appointment: María Elena Appiah WPtel: [phone] [place] [address] [place] INJECTION 02/01/2018 Patient Education: Patient Medication [...] M51.16 01/30/2018 Appointment: Kathleen Zuniga Rose MaryJj [address] [place] [address] ACUTE ILLNESS 01/30/2018 Patient Education: Patient Medication [...] E11.65 12/18/2017 Appointment: María Elena Appiah WPtel: [facility] [place] Annual Well Visit 12/18/2017 Patient Education: Patient Medication Summary Completed 12/18/2017 Care Plan: Referral Order SNOMED-CT : [id number] Pending 12/18/2017 Appointment: María Elena Appiah WPtel: [facility] [place] [place] INJECTION 12/10/2017 Patient Education: Patient Medication [...] ICD-10 : L03.031 12/07/2017 Appointment: Kathleen Zuniga [address] [place], [place] [phone] ACUTE ILLNESS 12/07/2017 Patient Education: Patient Medication [...] : J01.00 10/08/2017 Appointment: Kathleen Zuniga [address] [facility] ACUTE ILLNESS 10/08/2017 Patient Education: Patient Medication Summary Completed 10/08/2017 Appointment: María Elena Appiah WPtel: [phone] [id number] [place] INJECTION 09/21/2017 Patient Education: Patient Medication [...] : R06.83 09/20/2017 Appointment: Kathleen Zuniga [address] [facility] ACUTE ILLNESS 09/20/2017 Patient Education: Patient Medication [...] ICD-10 : L60.0 08/29/2017 Appointment: Kathleen Zuniga [address] [place] [address] OFFICE SURGERY 08/29/2017 Patient Education: Patient Medication Summary Completed 08/29/2017 Visit Diagnosis Plan: Actinic keratosis Discussion: Cr yotherapy as above ICD-9 : 702.0 ICD-10 : L57.0 08/01/2017 Appointment: María Elena Appiah WPtel: [address] [place] [address] OFFICE SURGERY 08/01/2017 Patient Education: Patient Medication Summary Completed 08/01/2017 Appointment: María Elena Appiah WPtel: [address] [place] [address] PATIENT THOUGHT APPOINTMENT WAS TOMORROW 07/26/17 CALLED 15 MINUTES BEFORE APPT TO SAY SHE DIDN'T HAVE ANYONE TO COVER HER BUSINESS AND WOULD NOT MAKE IT NO SHOW 07/25/2017 Visit Diagnosis Plan: Cellulitis of left toe Discussio n: Clindamycin and notify if worsening or persistis ICD-9 : 681.10 ICD-10 : L03.032 07/19/2017 Appointment: María Elena Appiah WPtel: [address] [place] [address] MEDICATION REVIEW 07/19/2017 Patient Education: Patient Medication Summary Completed 07/19/2017 Appointment: María Elena Appiah WPtel: [address] [place] [address] CANCELED 07/04/2017 Visit Diagnosis Plan: Generalized hyperhidrosis Discus ian: CBC, CMP, TSH, free T4 ordered to assess. will review labs. ICD-9 : 780.8 ICD-10 : R61 06/27/2017 Visit Diagnosis Plan: Chronic sinusitis, unspecified D iscussion: Referral sent to dr. albarado in [place] per patient request. patient has been treated multiple times for sinus infections with no recovery. patient was seen by dr sanchez in the past with no interventions. patient has deviated septum which may be affecting her sinuses. 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, including hip Discussion: Shave removal of above lesio n--sent to pathology ICD-9 : 216.7 ICD-10 : D23.72 01/24/2017 App[facility]ment: [facility]ía [facility] [phone] [facility] 01/23 confirmed ~ OFFICE SURGERY 01/24/2017 Patient Education: Patient Medication Summary Completed 01/24/2017 Appointment: Loan Sánchez [address] [place], [place] [id number] 01/09 rescheduled~sl RESCHEDULED 01/15/2017 Visit Diagnosis Plan: [...] L81.4 12/13/2016 Appointment: María Elena Appiah WPtel: [address] [place] [address] 12/12 confirmed ~ MEDICATION REVIEW 12/13/2016 Patient Education: Patient Medication Summary Completed 12/13/2016 Appointment: María Elena Appiah WPtel: [address] [place], [place] [phone] [place] rescheduled for 12/13/16 at 11am RESCHEDULED 0 12/06/2016 Appointment: María Elena Appiah WPtel: [address] [place], [place] [phone] [place] CANCELED 11/23/2016 Patient Education: Patient Medication [...] F51.01 11/01/2016 Appointment: María Elena Appiah WPtel: [address] [place], [place] [phone] [place] 10/31 lm `sl 11/01 lm`sl MEDICATION REVIEW 017 Patient Education: Patient Medication Summary Completed 11/01/2016 Referral: Canelo Overton WPtel: [address] [id number] [place] Referral Initiated 10/30/2016 Visit Diagnosis Plan: [...] Z01.419 10/17/2016 Appointment: María Elena Appiah WPtel: [address] [place], [place] [phone] 10/16 confirmed ~sl PAP 10/17/2016 Patient Education: Patient Medication Summary Completed 10/17/2016 Care Plan: MAMMOGRAM SCREENING LOINC : 2 6347-5 Pending 10/17/2016 Visit Diagnosis Plan: Other seasonal allergic rhinitis Discussion: Decadron/Garamycin Nasal [place] Mix Too soon for steroid Retry zyrtec 10mg daily ICD-9 : 477.9 ICD-10 : J30.2 10/10/2016 Appointment: María Elena Appiah WPtel: [address] [place], [place] [phone] [place] FOLLOW UP 10/10/2016 Patient Education: Patient Medication Summary Completed 10/10/2016 Appointment: María Elena Appiah WPtel: [address] [place], [place] [address] [place] 10/02 reschedule `sl RESCHEDULED 10/02/2016 Visit Plan: See surgery for removal of n ew left arm lesion and right foot lesion Lyrica to use next month for left arm paresthesias Continue current meds Discussed sunscreen/sunblock combo 09/19/2016 Appointment: María Elena Appiah WPtel: [address] [place], [place] [phone] 09/18 confirmed ~sl FOLLOW UP 09/19/2016 Patient Education: Patient Medication Summary Completed 09/19/2016 Patient Education: Patient Medication Summary Completed 09/18/2016 Care Plan: MAMMOGRAM BOTH BREASTS LOINC : 21915-7 Pending 09/18/2016 Visit Plan: Discussed that needs [...] sinuses 08/24/2016 Appointment: María Elena Appiah WPtel: [address] [place] [address] ACUTE ILLNESS 08/24/2016 Patient Education: Patient Medication Summary Completed 08/24/2016 Patient Education: Patient Medication Summary Completed 08/23/2016 Care Plan: MAMMOGRAM SCREENING LOINC : 2 6347-5 Pending 08/23/2016 Visit Plan: Finish doxycycline Add Breo 100/25 1 p BID for 2 weeks If not improving within next 2 days will get CXR 08/16/2016 Appointment: María Elena Appiah WPtel: [address] [place], [place] [phone] ACUTE ILLNESS 08/16/2016 Patient Education: Patient Medication Summary Completed 08/16/2016 Visit Plan: Supportive care. Rest, Fluid s, Tylenol/Motrin prn fever or bodyaches. Notify if worsening symptoms. Doxycyline and Prednisone 08/10/2016 Appointment: María Elena Appiah WPtel: [address] [place], [place] [phone] 08/09 lm`sl....confirmed-sp FOLLOW UP 09/2015 Patient Education: Patient Medication Summary Completed 08/10/2016 Visit Plan: Saline nasal flushes prn. Ty lenol/Motrin prn headache. Notify if persists/symptoms worsening. Dexamethasone 8mg IM today May use coricedan and mucinex 08/02/2016 Appointment: María Elena Appiah WPtel: [address] [place] [address] ACUTE ILLNESS 08/02/2016 Patient Education: Patient Medication Summary Completed 08/02/2016 Visit Plan: Cryotherapy as above and lef t forearm lesion removal as above with 5-0 punch biopsy and sent to path Return in 10 days for suture removal 08/01/2016 Appointment: María Elena Appiah WPtel: [address] [place], [place] [phone] 07/31 confirmed`~ OFFICE SURGERY 08/01/2016 Patient Education: Patient Medication Summary Completed 08/01/2016 Visit Plan: Stop clindamycin Check CBC, CMP, ESR now/STAT 07/27/2016 Appointment: María Elena Appiah WPtel: [address] [place] [address] ACUTE ILLNESS 07/27/2016 Patient Education: Patient Medication Summary Completed 07/27/2016 Visit Plan: Update lab and check ABIs to start with Will likely need cardiology evaluation to rule out PVD Clindamycin for 10 days Daily yogurt or probiotic Will return for removal of left arm lesions 07/20/2016 Appointment: María Elena Appiah WPtel: [address] [place], [place] [phone] ACUTE ILLNESS 07/20/2016 Patient Education: Patient Medication Summary Completed 07/20/2016 Patient Education: Patient Medication Summary Completed 07/20/2016 Care Plan: MAMMOGRAM BOTH BREASTS LOINC : 06517-2 Pending 07/20/2016 Care Plan: US EXAM CHEST LOINC : 51369-2 Pending 07/20/2016 Visit Plan: Wound culture collected from left great toe Appearance is somewhat staph like Rx as above Wound cleanser and skin care reviewed May need to add oral antibiotic if sores do not heal or continue to reoccur 07/06/2016 Appointment: Loan Sánchez [address] [place] [address] ACUTE ILLNESS 07/06/2016 Patient Education: Patient Medication Summary Completed 07/06/2016 Appointment: María Elena Appiah WPtel: [address] [place] [address] [place] INJECTION 05/25/2016 Patient Education: Patient Medication Summary Completed 05/25/2016 Visit Plan: Saline nasal flushes prn. Ty lenol/Motrin prn headache. Notify if persists/symptoms worsening. Dexamethasone and Rocephin given 04/26/2016 Appointment: María Elena Appiah WPtel: [address] [place] [address] ACUTE ILLNESS 04/26/2016 Patient Education: Patient Medication Summary Completed 04/26/2016 Visit Plan: Check CBC, CMP, TSH, FreeT4, HbA1C, estradiol, lipids in AM 03/02/2016 Appointment: María Elena Appiah WPtel: [address] [place] [address] 03/01 lm~sl ACUTE ILLNESS 03/02/2016 Patient Education: Patient Medication Summary Completed 03/02/2016 Visit Plan: Exam is nearly normal Needs to be taking daily antihistamine Would prefer to use oral steroids instead of shot but patient insist that oral steroids cause horrible headaches for her Will given kenalog IM instead 02/09/2016 Appointment: Loan Sánchez [address] [place] [address] ACUTE ILLNESS 02/09/2016 Patient Education: Patient Medication Summary Completed 02/09/2016 Visit Plan: Culture urine Macrobid DC xa nax Trial of Ativan 1mg q HS 01/24/2016 Appointment: María Elena Appiah WPtel: [address] [place] [address] ACUTE ILLNESS 01/24/2016 Patient Education: Patient Medication Summary Completed 01/24/2016 Visit Plan: No steroid or rocephin injec tion warranted Can have oral prednisone Continue current home regimen Needs to follow up with Dr Sanchez if problems persist 12/23/2015 Appointment: Loan Sánchez [address] [place], [place] [phone] ACUTE ILLNESS 12/23/2015 Patient Education: Patient Medication Summary Completed 12/23/2015 Visit Plan: Saline nasal flushes prn. Ty lenol/Motrin prn headache. Notify if persists/symptoms worsening. Kenalog 40mg IM today 12/08/2015 Appointment: María Elena Appiah WPtel: [address] [place] [address] 12/06 confirmed~ ACUTE ILLNESS 12/08/2015 Patient Education: Patient Medication Summary Completed 12/08/2015 Appointment: María Elena Appiah WPtel: [address] [place] [address] ACUTE ILLNESS 11/18/2015 Patient Education: Patient Medication Summary Completed 10/11/2015 Appointment: María Elena Appiah WPtel: [address] [place] [address] [place] INJECTION 10/07/2015 Patient Education: Patient Medication Summary Completed 10/07/2015 Visit Plan: Check renal arterial doppler s and ECHO Change amlodopine to lotrel 5/20mg q HS Will need stress test as well Check CMP, uric acid, ESR 10/06/2015 Appointment: María Elena Appiah WPtel: [address] [place] [address] ACUTE ILLNESS 10/06/2015 Patient Education: Patient Medication Summary Completed 10/06/2015 Patient Education: [facility] - [employer] - Amlodipine Besylate - 18-64 - Dynamic Portal ID Completed 10/06/2015 Appointment: María Elena Appiah WPtel: [address] [place] [address] FOLLOW UP 09/22/2015 Visit Plan: Cephalexin 500 mg PO bid Mery ly topical Mupirocin to lesions on left lateral neck and face Follow-up in one week. Sooner if symptoms worsen 09/14/2015 Appointment: June Flores WPtel: [address] [place] [address] ACUTE ILLNESS 09/14/2015 Patient Education: Patient Medication Summary Completed 09/14/2015 Visit Plan: Change bystolic to bedtime d osing and amlodopine to morning dosing Cryotherapy as above to AKs 09/07/2015 Appointment: María Elena Appiah WPtel: [address] [place] [address] 09/06 appointment made and confirmed ~sl FOLLOW UP 09/07/2015 Patient Education: Patient Medication Summary Completed 09/07/2015 Visit Plan: Increase bystolic back to 20 mg daily but will split and take 10mg in AM and 10mg in PM Stress Reducers 08/18/2015 Appointment: María Elena Appiah WPtel: [address] [place] [address] 08/17/15 appt confirmed cn ACUTE ILLNESS 08/18 Patient Education: Patient Medication Summary Completed 08/18/2015 Appointment: María Elena Appiah WPtel: [address] [place] [address] BP CHECK 07/07/2015 Patient Education: Patient Medication Summary Completed 07/07/2015 Appointment: María Elena Appiah WPtel: [address] [place] [address] BP CHECK 06/24/2015 Patient Education: Patient Medication Summary Completed 06/24/2015 Appointment: María Elena Appiah WPtel: [address] [place] [address] BP CHECK 06/21/2015 Patient Education: Patient Medication Summary Completed 06/21/2015 Visit Plan: Lab discussed Continue curre nt meds and lifestyle modification Recheck lab in 6mos 06/16/2015 Appointment: María Elena Appiah WPtel: [address] [place] [address] 06/15 confirmed FOLLOW UP 06/16/2015 Patient Education: Patient Medication Summary Completed 06/16/2015 Patient Education: Patient Medication Summary Completed 06/15/2015 Visit Plan: Increase cymbalta to 60mg q HS Keep clonidine at current dose Recheck 2weeks Change xanax to klonopin 06/02/2015 Appointment: María Elena Appiah WPtel: [address] [place] [address] 06/02 FOLLOW UP 06/02/2015 Patient Education: Patient Medication Summary Completed 06/02/2015 Appointment: María Elena Appiah WPtel: [address] [place] [address] ACUTE ILLNESS 05/24/2015 Visit Plan: Increase clonidine to 0.2mg q HS Add cymbalta 30mg q HS Recheck 2weeks Stress Reducers Check fasting lab Discussed sleep study 05/20/2015 Appointment: María Elena Appiah WPtel: [address] [place] [address] ACUTE ILLNESS 05/20/2015 Patient Education: Patient Medication Summary Completed 05/20/2015 Patient Education: [facility] - Saving [employer] - Cymbalta - 18-64 - Dynamic Portal ID Completed 05/20/2015 Appointment: María Elena Appiah WPtel: [address] [place] [address] BP CHECK 05/19/2015 Patient Education: Patient Medication Summary Completed 05/19/2015 Visit Plan: Topical Bactroban alternatin g with topical betamethasone Recheck 2weeks 05/10/2015 Appointment: María Elena Appiah WPtel: [address] [place] [address] 05/07 vm cn...05/07 appt confirmed OFFICE SURGER Y 05/10/2015 Patient Education: Patient Medication Summary Completed 05/10/2015 Referral: Patrick Chandler WPtel: [place] [address] Referral Initiated 05/04/2015 Visit Plan: Saline nasal flushes prn. Ty lenol/Motrin prn headache. Notify if persists/symptoms worsening. Depomedrol 40mg IM today 03/16/2015 Appointment: María Elena Appiah WPtel: [address] [place] [address] ACUTE ILLNESS 03/16/2015 Patient Education: Patient Medication Summary Completed 03/16/2015 Appointment: María Elena Appiah WPtel: [address] [place] [address] ER Follow UP 03/09/2015 Visit Plan: Cryotherapy to lesions as ab ove 10/27/2014 Appointment: María Elena Appiah WPtel: [address] [place] [address] OFFICE SURGERY 10/27/2014 Patient Education: Patient Medication Summary Completed 10/27/2014 Appointment: June Flores WPtel: [address] [place] [address] ACUTE ILLNESS 09/11/2014 Patient Education: Patient Medication Summary Completed 09/11/2014 Visit Plan: Lab discussed Lipitor 10mg d aily Coenzyme Q-10 400mg daily Vitamin D3 5000u daily Recheck lipids with LFTs in 3mos then fwup 08/31/2014 Appointment: María Elena Appiah WPtel: [address] [place] [address] 08/28 voicemail FOLLOW UP 08/31/2014 Patient Education: Patient Medication Summary Completed 08/31/2014 Appointment: María Elena Appiah WPtel: [address] [place] [address] [place] LAB 08/27/2014 Appointment: María Elena Appiah WPtel: [address] [place] [address] [place] LAB 08/27/2014 Patient Education: Patient Medication Summary Completed 08/27/2014 Appointment: María Elena Appiah WPtel: [address] [place] [address] ACUTE ILLNESS 07/23/2014 Appointment: María Elena Appiah WPtel: [address] [place], [place] [id number] ACUTE ILLNESS 07/21/2014 Patient Education: Patient Medication Summary Completed 07/21/2014 Visit Plan: Kenalog 40mg IM today Contin ue narendra and jazir Add Flonase 07/15/2014 Appointment: María Eelna Appiah WPtel: [address] [place], [place] [id number] ACUTE ILLNESS 07/15/2014 Appointment: María Elena Appiah WPtel: [address] [place], [place] [id number] ACUTE ILLNESS 07/15/2014 Patient Education: Patient Medication Summary Completed 07/15/2014 Visit Plan: Will do metolazone 2.5mg prn with 6 potassium and see if causes as severe cramping Trial of of seroquel XR 50mg q PM with evening meal and let us know how works 05/18/2014 Appointment: María Elena Appiah WPtel: [address] [place], [place] [id number] 05/15 left message FOLLOW UP 05/18/2014 Patient Education: Patient Medication Summary Completed 05/18/2014 Appointment: María Elena Appiah WPtel: [address] [place], [place] [id number] LAB 05/14/2014 Patient Education: Patient Medication Summary Completed 05/14/2014 Appointment: María Elena Appiah WPtel: [address] [place], [place] [id number] [place] INJECTION 04/22/2014 Visit Plan: Rocephin and Kenalog today a nd finish abx given from urgent care 04/21/2014 Appointment: María Elena Appiah WPtel: [address] [place] [address] [place] INJECTION 04/21/2014 Patient Education: Patient Medication Summary Completed 04/21/2014 Appointment: June Flores WPtel: [address] [place] [address] ACUTE ILLNESS 03/04/2014 Patient Education: Patient Medication Summary Completed 03/04/2014 Appointment: María Elena Appiah WPtel: [address] [place] [address] INJECTION 02/27/2014 Patient Education: Patient Medication Summary Completed 02/27/2014 Visit Plan: Cryotherapy as above to all lesions Patient wants to try no meds for insomnia for a while and see how goes 01/13/2014 Appointment: María Elena Appiah WPtel: [address] [place] [address] OFFICE SURGERY 01/13/2014 Patient Education: Patient Medication Summary Completed 01/13/2014 Visit Plan: Stop Melatonin Stop Soma Tri al of trazadone 75mg q HS See ENT for possible tubes as has had chronic ETD and serous otitis media with numerous steroids 12/24/2013 Appointment: María Elena Appiah WPtel: [address] [place] [address] ACUTE ILLNESS 12/24/2013 Patient Education: Patient Medication Summary Completed 12/24/2013 Visit Plan: Saline nasal flushes prn. Ty lenol/Motrin prn headache. Notify if persists/symptoms worsening. 11/12/2013 Appointment: María Elena Appiah WPtel: [address] [place] [address] ACUTE ILLNESS 11/12/2013 Patient Education: Patient Medication Summary Completed 11/12/2013 Appointment: María Elena Appiah WPtel: [address] [place] [address] ACUTE ILLNESS 10/21/2013 Patient Education: Patient Medication Summary Completed 10/21/2013 Visit Plan: Sleep hygiene and sleep rout ine Melatonin 10mg q HS Support stockings and observe 09/22/2013 Appointment: María Elena Appiah WPtel: [address] [place] [address] ACUTE ILLNESS 09/22/2013 Patient Education: Patient Medication Summary Completed 09/22/2013 Appointment: June Flores WPtel: [address] [place] [address] ACUTE ILLNESS 08/27/2013 Patient Education: Patient Medication Summary Completed 08/27/2013 Visit Plan: Proceed with CT scan of head /neck Proceed with occipital nerve injections Butrans 20mcg patch weekly until can get into see Dr. Mcdonough for injections 08/04/2013 Appointment: María Elena Appiah WPtel: [address] [place] [address] FOLLOW UP 08/04/2013 Patient Education: Patient Medication Summary Completed 08/04/2013 Visit Plan: OMT done Daily neck stretche s, moist heat Increase Celebrex to 200mg BID Add flexeril 07/23/2013 Appointment: María Elena Appiah WPtel: [address] [place] [address] 07/22 voicemail FOLLOW UP 07/23/2013 Patient Education: Patient Medication Summary Completed 07/23/2013 Appointment: María Elena Appiah WPtel: [address] [place] [address] ACUTE ILLNESS 06/23/2013 Patient Education: Patient Medication Summary Completed 06/23/2013 Appointment: María Elena Appiah WPtel: [address] [place] [address] ACUTE ILLNESS 05/26/2013 Patient Education: Patient Medication Summary Completed 05/26/2013 Visit Plan: Decrease clonidine to 0.1mg TID If BP remains stable consider decreasing amlodopine Prednisone for 5 days BP check in 1mo 04/16/2013 Appointment: María Elena Appiah WPtel: [address] [place] [address] 04/14 pt called and confirmed appt FOLLOW UP 04/16/2013 Patient Education: Patient Medication Summary Completed 04/16/2013 Appointment: María Elena Appiah WPtel: [address] [place] [address] ACUTE ILLNESS 03/05/2013 Patient Education: Patient Medication Summary Completed 03/05/2013 Visit Plan: Pt has MARIA ELENA on with Dr. Mcdonough Continue Butrans patch Refill Hydrocodone early tomorrow 12/23/2012 Appointment: María Elena Appiah WPtel: [address] [place] [address] FOLLOW UP 12/23/2012 Patient Education: Patient Medication Summary Completed 12/23/2012 Appointment: Lashawn Eckert WPtel: [address] [place] [address] ACUTE ILLNESS 12/16/2012 Patient Education: Patient Medication Summary Completed 12/16/2012 Visit Plan: Proceed with updated MRI of LS spine Continue gabapentin and add soma and diclofenac Will likely need to go for another epidural 12/09/2012 Appointment: María Elena Appiah WPtel: [address] [place] [address] ACUTE ILLNESS 12/09/2012 Patient Education: Patient Medication Summary Completed 12/09/2012 Visit Plan: Injection as above Finish me drol dose pack Chiropracter this afternoon 12/04/2012 Appointment: María Elena Appiah WPtel: [address] [place] [address] ACUTE ILLNESS 12/04/2012 Patient Education: Patient Medication Summary Completed 12/04/2012 Appointment: Mary Tillman WPtel: [address] [place] [address] FOLLOW UP 11/22/2012 Patient Education: Patient Medication Summary Completed 11/22/2012 Appointment: María Elena Appiah WPtel: [address] [place] [address] ACUTE ILLNESS 11/21/2012 Patient Education: Patient Medication Summary Completed 11/21/2012 Appointment: María Elena Appiah WPtel: [address] [place] [address] BP CHECK 11/07/2012 Patient Education: Patient Medication [...] BP re-check. 10/29/2012 Appointment: Lashawn Eckert WPtel: [address] [place] [address] ACUTE ILLNESS 10/29/2012 Patient Education: Patient Medication Summary Completed 10/29/2012 Appointment: María Elena Appiah WPtel: [address] [place] [address] ACUTE ILLNESS 10/14/2012 Patient Education: Patient Medication Summary Completed 10/14/2012 Appointment: María Elena Appiah WPtel: [address] [place] [address] 09/27/2012 Patient Education: Patient Medication Summary Completed 09/27/2012 Appointment: María Elena Appiah WPtel: [address] [place] [address] ACUTE ILLNESS 09/25/2012 Patient Education: Patient Medication Summary Completed 09/25/2012 Appointment: María Elena Appiah WPtel: [address] [place] [address] BP CHECK 09/24/2012 Appointment: María Elena Appiah WPtel: [address] [place] [address] ACUTE ILLNESS 08/29/2012 Patient Education: Patient Medication Summary Completed 08/29/2012 Visit Plan: Cryotherapy as above See Karlos m for right ear lesion--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 ACUTE ILLNESS 05/06/2012 Patient Education: Patient Medication Summary Completed 05/06/2012 Visit Plan: Pt wants to hold on any furt her sleep medications 04/03/2012 Appointment: María Elena Appiah WPtel: [address] [place] [address] FOLLOW UP 04/03/2012 Patient Education: Patient Medication Summary Completed 04/03/2012 Appointment: María Elena Appiah WPtel: [address] [place] [address] FOLLOW UP 03/19/2012 Patient Education: Patient Medication Summary Completed 03/19/2012 Appointment: María Elena Appiah WPtel: [address] [place] [address] BP CHECK 02/22/2012 Patient Education: Patient Medication Summary Completed 02/22/2012 Appointment: María Elena Appiah WPtel: [address] [place] [address] BP CHECK 02/21/2012 Patient Education: Patient Medication Summary Completed 02/21/2012 Visit Plan: Doxycycline and bactroban fo r foot Supportive care on ankles and knees Add norvasc for BP 02/20/2012 Appointment: María Elena Appiah WPtel: [address] [place] [address] ER Follow UP 02/20/2012 Patient Education: Patient Medication Summary Completed 02/20/2012 Appointment: María Elena Appiah WPtel: [address] [place] [address] ACUTE ILLNESS 01/30/2012 Patient Education: Patient Medication Summary Completed 01/30/2012 Appointment: María Elena Appiahtel: [address] [place] [address] ACUTE ILLNESS 01/24/2012 Patient Education: Patient Medication Summary Completed 01/24/2012 Visit Plan: Daily back stretches, moist heat, Biofreeze prn OMT done 01/10/2012 Appointment: María Elena Appiah WPtel: [address] [place] [address] ACUTE ILLNESS 01/10/2012 Patient Education: Patient Medication Summary Completed 01/10/2012 Appointment: María Elena Appiah WPtel: [address] [place] [address] FOLLOW UP 12/11/2011 Patient Education: Patient Medication Summary Completed 12/11/2011 Appointment: María Elena Appiahtel: [address] [place] [address] ACUTE ILLNESS 11/09/2011 Patient Education: Patient Medication Summary Completed 11/09/2011 Appointment: Maraí Elena Appiahtel: [address] [place] [address] ACUTE ILLNESS 09/13/2011 Patient Education: Patient Medication Summary Completed 09/13/2011 Visit Plan: Check CBC, TSH, Free T4, CMP , ESR, Vit D, B12 now Start Prednisone today 08/31/2011 Appointment: María Elena Appiahtel: [address] [place] [address] ACUTE ILLNESS 08/31/2011 Patient Education: Patient Medication Summary Completed 08/31/2011 Appointment: María Elena Appiah WPtel: [address] [place] [address] [place] INJECTION 07/20/2011 Patient Education: Patient Medication Summary Completed 07/20/2011 Visit Plan: Continue current meds Monite r BP Cont stretches from PT 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 07/06/2011 Appointment: María Elena Appiah WPtel: [address] [place], [place] [id number] [place] FOLLOW UP 07/06/2011 Patient Education: Patient Medication Summary Completed 07/06/2011 Appointment: María Elena Appiah WPtel: [address] [place], [place] [phone] BP CHECK 06/06/2011 Patient Education: Patient Medication Summary Completed 06/06/2011 Visit Plan: Add Bystolic at 2.5mg QAM Ad d Robaxin 750mg 2 po q HS BP check in 2wks 05/22/2011 Appointment: María Elena Appiah WPtel: [address] [place], [place] [id number] FOLLOW UP 05/22/2011 Patient Education: Patient Medication Summary Completed 05/22/2011 Appointment: María Elena Appiah WPtel: [address] [place], [place] [phone] ER Follow UP 05/09/2011 Patient Education: Patient Medication Summary Completed 05/09/2011 Appointment: María Elena Appiah WPtel: [address] [place], [place] [phone] [place] FOLLOW UP 02/22/2011 Visit Plan: Rx written for Hydrocodone 1 0/325mg #240 See Ortho 02/14/2011 Appointment: María Elena Appiah WPtel: [address] [place], [place] [phone] OMT 02/14/2011 Patient Education: Patient Medication Summary [...] work. 02/03/2011 Appointment: Lashawn Eckert WPtel: [address] [place] [address] ACUTE ILLNESS 02/03/2011 Patient Education: Patient Medication Summary Completed 02/03/2011 Visit Plan: OMT done Cont daily stretche s 01/31/2011 Appointment: María Elena Appiah WPtel: [address] [place] [address] ACUTE ILLNESS 01/31/2011 Patient Education: Patient Medication Summary Completed 01/31/2011 Visit Plan: Continue pain meds OMT done Proceed with PT No work this summer01/25/2011 Appointment: María Elena Appiah WPtel: [address] [place] [address] ACUTE ILLNESS 01/25/2011 Patient Education: Patient Medication Summary Completed 01/25/2011 Visit Plan: Start PT Long discussion abo ut getting pain meds from only and can only have max of 4grams of tylenol per day Change to Hydrocodone 10/325mg 1- 2 po TID prn pain--#180 called to Radha 01/18/2011 Appointment: María Elena Appiah WPtel: [address] [place] [address] FOLLOW UP 01/18/2011 Patient Education: Patient Medication Summary Completed 01/18/2011 Visit Plan: Daily back stretches, moist heat, Biofreeze prn 11/29/2010 Appointment: María Elena Appiah WPtel: [address] [place] [address] ER Follow UP 11/29/2010 Patient Education: Patient Medication Summary Completed 11/29/2010 Visit Plan: Saline nasal flushes prn. Ty lenol/Motrin prn headache. Notify if persists/symptoms worsening. Finish augmentin Add Medrol Dose Pack 10/10/2010 Appointment: María Elena Appiah WPtel: [address] [place], [place] [phone] ACUTE ILLNESS 10/10/2010 Patient Education: Patient Medication Summary Completed 10/10/2010 Visit Plan: Cryotherapy x3 to multiple l esions on both forearms 07/19/2010 Appointment: María Elena Appiah WPtel: [address] [place], [place] [phone] OFFICE SURGERY 07/19/2010 Patient Education: Patient Medication Summary Completed 07/19/2010 Appointment: María Elena Appiah WPtel: [address] [place], [place] [phone] [place] BP CHECK 07/06/2010 Patient Education: Patient Medication Summary Completed 07/06/2010 Appointment: María Elena Appiahtel: [address] [place], [place] [phone] [place] BP CHECK 06/30/2010 Patient Education: Patient Medication Summary Completed 06/30/2010 Appointment: María Elena Appiah WPtel: [address] [place], [place] [phone] [place] BP CHECK 06/20/2010 Patient Education: Patient Medication Summary Completed 06/20/2010 Visit Plan: Change Diovan to Exforge 160 /5mg QD OMT done to thoracics BP check in 2wks 06/07/2010 Appointment: María Elena Appiah WPtel: [address] [place], [place] [phone] FOLLOW UP 06/07/2010 Patient Education: Patient Medication Summary Completed 06/07/2010 Appointment: María Elena Appiah WPtel: [address] [place], [place] [phone] [place] BP CHECK 06/03/2010 Patient Education: Patient Medication Summary Completed 06/03/2010 Appointment: María Elena Appiah WPtel: [address] [place], [place] [phone] [place] BP CHECK 06/01/2010 Patient Education: Patient Medication Summary Completed 06/01/2010 Visit Plan: Irritated skin tags to left neck x2 excised at base with scissors and base cauterized 05/30/2010 Appointment: María Elena Appiah WPtel: [address] [place] [address] OFFICE SURGERY 05/30/2010 Patient Education: Patient Medication Summary Completed 05/30/2010 Visit Plan: Saline nasal flushes prn. Ty lenol/Motrin prn headache. Notify if persists/symptoms worsening. Restart Nasonex Has allergy testing set for May 25 04/27/2010 Appointment: María Elena Appiah WPtel: [address] [place] [address] ACUTE ILLNESS 04/27/2010 Patient Education: Patient Medication Summary Completed 04/27/2010 Visit Plan: Saline nasal flushes prn. Ty lenol/Motrin prn headache. Notify if persists/symptoms worsening. Omnaris BID plus injections 04/05/2010 Appointment: María Elena Appiah WPtel: [address] [place] [address] ACUTE ILLNESS 04/05/2010 Patient Education: Patient Medication Summary Completed 04/05/2010 Visit Plan: Saline nasal flushes prn. Ty lenol/Motrin prn headache. Notify if persists/symptoms worsening. 03/09/2010 Appointment: María Elena Appiah WPtel: [address] [place] [address] ACUTE ILLNESS 03/09/2010 Patient Education: Patient Medication Summary Completed 03/09/2010 Visit Plan: Cont Clonidine as is Cont Pr emarin Fwup with surgery as scheduled 03/03/2010 Appointment: María Elena Appiah WPtel: [address] [place] [address] FOLLOW UP 03/03/2010 Patient Education: Patient Medication Summary Completed 03/03/2010 Visit Plan: Check Pelvic US now Dukee tacho Sal C vs Hysterectomy 01/17/2010 Appointment: María Elena Appiah WPtel: [address] [place] [address] ACUTE ILLNESS 01/17/2010 Patient Education: Patient Medication Summary Completed 01/17/2010 Visit Plan: Check fasting lab and schedu le Mammogram 2gm Na Diet Trial of Ambien 10mg qhs Fwup pending lab results 12/27/2009 Appointment: María Elena Appiah WPtel: [phone] [id number] [place] ESTABLISHED PATIENT 12/27/2009 Patient Education: Patient Medication Summary Completed 12/27/2009 Referral: Canelo Overton WPtel: [address] [id number] [place] Referral Initiated Referral: Philipp Flores WPtel: [address] [id number] [place] Referral Appointment Requested Instructions Comment . [...]
--- OUTSIDE RECORDS SUMMARY | 2020-03-13 07:11 | XMS REPORT | CCD ---
Author Author Gale Appiah D.O. Organization [facility] Address [address] [place] [id number] Phone Care Team Providers Care Kinesiology Professor Name Role Phone María Elena Appiah D.O., PP Unavailable CCM Unavailable Summary Purpose Interface Exchange Family History Family History data not found Social History Social History Element Codes Description Effective Dates Tobacco history SNOMED CT: 371321012 Never smoker 05/22/2011 Allergies, Adverse Reactions, Alerts [...] Instructions duloxetine 60 mg capsule,delayed release RxNorm: 365526 TAKE ONE CAPSULE BY MOUTH DAILY 09/11/2019 No Stop Date Active Lipitor 10 mg tablet RxNorm: 519019 TAKE ONE TABLET BY MOUTH AT BEDTIME 09/11/2019 No Stop Date Active lisinopril 20 mg tablet RxNorm: 728590 TAKE ONE TABLET BY MOUTH DAILY .... THIS REPLACE 10MG TABLETS 09/11/2019 No Stop Date Active triamterene 75 mg-hydrochlorothiazide 50 mg tablet RxNorm: 3 38979 TAKE ONE TABLET BY MOUTH DAILY 09/11/2019 No Stop Date Active allopurinol 300 mg tablet RxNorm: 724214 TAKE ONE TABLET BY LOPEZ TH DAILY 09/11/2019 No Stop Date Active celecoxib 200 mg capsule RxNorm: 202484 TAKE ONE CAPSUL E BY MOUTH TWICE A DAY NEEDED FOR PAIN 09/11/2019 No Stop Date Active clonidine HCl 0.1 mg tablet RxNorm: 012850 TAKE ONE TAB LET BY MOUTH FOUR TIMES A DAY 09/11/2019 No Stop Date Active doxepin 25 mg capsule RxNorm: 0989976 1 Capsule(s) Oral every night at bedtime as needed for sleep 08/21/2019 11/18/2019 Active hydrocodone 10 mg-acetaminophen 325 mg tablet RxNorm: 628589 1-2 Tablet(s) PO TID 08/12/2019 No Stop Date Active as needed for pa in - Previous quantity #240, will start dosing for #180 in April 2011 per Doctor Td. Medrol (Dustin) 4 mg tablets in a dose pack RxNorm: 021286 Tablet(s) Oral As Directed 07/21/2019 No Stop Date Active Premarin 1.25 mg tablet RxNorm: 066752 1 Tablet(s) Oral QD 07/02/20 19 03/28/2020 Active hydrocodone 10 mg-acetaminophen 325 mg tablet RxNorm: 118961 1-2 Tablet(s) PO TID 07/01/2019 08/11/2019 Inactive as needed for pa in - Previous quantity #240, will start dosing for #180 in April 2011 per Doctor Td. gabapentin 300 mg capsule RxNorm: 514552 1 Capsule(s) PO QHS 201809/24/2019 Active celecoxib 200 mg capsule RxNorm: 187876 1 Capsule(s) Or al two times a day as needed for pain 06/27/2019 06/27/2019 Inactive Singulair 10 mg tablet RxNorm: 512185 TAKE ONE TABLET BY MOUTH JOSÉ Y 06/24/2019 No Stop Date Active furosemide 40 mg tablet RxNorm: 614884 TAKE ONE TABLET BY MOUTH EVERY MORNING NEEDED FOR EDEMA . TAKE WITH POTASSIUM 06/24/2019 No Stop Date Active doxepin 25 mg capsule RxNorm: 2410416 TAKE ONE CAPSULE B Y MOUTH EVERY NIGHT AT BEDTIME NEEDED FOR SLEEP 06/24/2019 08/20/2019 Inactive lisinopril 20 mg tablet RxNorm: 034479 TAKE ONE TABLET BY MOUTH DAILY .... THIS REPLACE 10MG TABLETS 06/24/2019 09/10/2019 Inactive nystatin-triamcinolone 100,000 unit/g-0.1 % topical cream Rx Norm: 1716680 1 Application Topical two times a day 06/12/2019 06/19/2019 Inactive apply BID for 1 week nystatin-triamcinolone 100,000 unit/g-0.1 % topical cream Rx Norm: 9033107 1 Application Topical two times a day 06/12/2019 06/11/2019 Inactive apply BID for 1 week hydrocodone 10 mg-acetaminophen 325 mg tablet RxNorm: 248087 1-2 Tablet(s) PO QID as needed for pain MUST LAST 30 DAYS 05/28/2019 06/26/2019 Inactiv e (Response to an electronic controlled substance refill request - RxReferenceNumber: [id number]) baclofen 20 mg tablet RxNorm: 634614 1 Tablet(s) PO TID as needed for muscle spasm 05/19/2019 05/27/2019 Inactive gabapentin 300 mg capsule RxNorm: 957757 1 Capsule(s) PO QHS 201805/27/2019 Inactive lisinopril 20 mg tablet RxNorm: 201137 1 Tablet(s) PO Q D TAKE ONE TABLET BY MOUTH DAILY, REPLACES 10 MG DOSE 05/19/2019 06/23/2019 Inactive doxepin 25 mg capsule RxNorm: 1571505 TAKE ONE CAPSULE B Y MOUTH EVERY NIGHT AT BEDTIME NEEDED FOR SLEEP 05/16/2019 06/14/2019 Inactive lisinopril 20 mg tablet RxNorm: 999899 TAKE ONE TABLET BY MOUTH DAILY, REPLACES 10 MG DOSE 05/16/2019 05/18/2019 Inactive Singulair 10 mg tablet RxNorm: 952946 TAKE ONE TABLET BY MOUTH JOSÉ Y 05/16/2019 06/14/2019 Inactive gabapentin 300 mg capsule RxNorm: 811339 1 Capsule(s) PO QHS 201805/04/2019 Inactive estropipate 1.5 mg tablet RxNorm: 306728 1 Tablet(s) PO QD 05/05/2005/27/2019 Inactive estropipate 1.5 mg tablet RxNorm: 476640 1 Tablet(s) PO QD 05/05/2005/04/2019 Inactive gabapentin 300 mg capsule RxNorm: 183208 1 Capsule(s) PO QHS 201805/18/2019 Inactive hydrocodone 10 mg-acetaminophen 325 mg tablet RxNorm: 905200 1-2 Tablet(s) PO QID as needed for pain MUST LAST 30 DAYS 04/25/2019 05/24/2019 Inactiv e (Response to an electronic controlled substance refill request - RxReferenceNumber: [id number]) metoprolol tartrate 100 mg tablet RxNorm: 861198 TAKE O NE TABLET BY MOUTH TWICE A DAY 04/24/2019 06/22/2019 Inactive cyclobenzaprine 10 mg tablet RxNorm: 322968 TAKE ONE TA BLET BY MOUTH THREE TIMES A DAY NEEDED FOR MUSCLE SPASMS 04/24/2019 05/18/2019 Inactive Lyrica 75 mg capsule RxNorm: 470816 1 Capsule(s) PO QHS 03/25/2019 Inactive Klor-Con 8 mEq tablet,extended release RxNorm: 053404 T FARRUKH ONE TABLET BY MOUTH TWICE A DAY 03/21/2019 05/19/2019 Inactive duloxetine 60 mg capsule,delayed release RxNorm: 346132 TAKE ONE CAPSULE BY MOUTH DAILY 03/21/2019 05/19/2019 Inactive triamterene 75 mg-hydrochlorothiazide 50 mg tablet RxNorm: 3 84947 TAKE ONE TABLET BY MOUTH DAILY 03/21/2019 05/19/2019 Inactive Lipitor 10 mg tablet RxNorm: 320350 TAKE ONE TABLET BY MOUTH AT BEDTIME 03/21/2019 09/10/2019 Inactive clonidine HCl 0.1 mg tablet RxNorm: 033715 TAKE ONE TAB LET BY MOUTH FOUR TIMES A DAY 03/21/2019 05/19/2019 Inactive allopurinol 300 mg tablet RxNorm: 980218 TAKE ONE TABLET BY LOPEZ TH DAILY 03/21/2019 05/19/2019 Inactive hydrocodone 10 mg-acetaminophen 325 mg tablet RxNorm: 010501 1-2 Tablet(s) PO QID as needed for pain MUST LAST 30 DAYS 02/28/2019 03/29/2019 Inactiv e (Response to an electronic controlled substance refill request - RxReferenceNumber: [id number]) furosemide 40 mg tablet RxNorm: 390280 TAKE ONE TABLET BY MOUTH EVERY MORNING NEEDED FOR EDEMA . TAKE WITH POTASSIUM 02/21/2019 03/22/2019 Inactive cyclobenzaprine 10 mg tablet RxNorm: 358768 TAKE ONE TA BLET BY MOUTH THREE TIMES A DAY NEEDED FOR MUSCLE SPASMS 02/21/2019 04/21/2019 Inactive lisinopril 20 mg tablet RxNorm: 336719 TAKE ONE TABLET BY MOUTH DAILY, REPLACES 10 MG DOSE 02/21/2019 05/15/2019 Inactive doxepin 25 mg capsule RxNorm: 2710527 TAKE ONE CAPSULE B Y MOUTH EVERY NIGHT AT BEDTIME NEEDED FOR SLEEP 02/21/2019 05/15/2019 Inactive nystatin 100,000 unit/gram topical cream RxNorm: 310356 APPLY TO AFFECTED AREA(S) TWO TIMES A DAY 02/21/2019 03/22/2019 Inactive estradiol 1 mg tablet RxNorm: 476022 2 Tablet(s) PO QD replaces premarin 01/22/2019 05/04/2019 Inactive lisinopril 20 mg tablet RxNorm: 614061 TAKE ONE TABLET BY MOUTH DAILY, REPLACES 10 MG DOSE 01/20/2019 02/18/2019 Inactive cyclobenzaprine 10 mg tablet RxNorm: 771267 TAKE ONE TA BLET BY MOUTH THREE TIMES A DAY NEEDED FOR MUSCLE SPASMS 01/20/2019 02/18/2019 Inactive metoprolol tartrate 100 mg tablet RxNorm: 309719 TAKE O NE TABLET BY MOUTH TWICE A DAY 01/20/2019 02/18/2019 Inactive cyclobenzaprine 10 mg tablet RxNorm: 740680 TAKE ONE TA BLET BY MOUTH THREE TIMES A DAY NEEDED FOR MUSCLE SPASMS 12/19/2018 01/17/2019 Inactive lisinopril 20 mg tablet RxNorm: 784553 TAKE ONE TABLET BY MOUTH DAILY, REPLACES 10 MG DOSE 12/19/2018 01/17/2019 Inactive duloxetine 60 mg capsule,delayed release RxNorm: 426387 TAKE ONE CAPSULE BY MOUTH DAILY 12/19/2018 01/17/2019 Inactive Lipitor 10 mg tablet RxNorm: 678205 TAKE ONE TABLET BY MOUTH AT BEDTIME 12/19/2018 01/17/2019 Inactive cyclobenzaprine 10 mg tablet RxNorm: 956040 1 Tablet(s) PO TID as needed for muscle spasm 11/19/2018 12/18/2018 Inactive Singulair 10 mg tablet RxNorm: 647771 1 Tablet(s) PO QD 11/19/2018 Inactive lisinopril 20 mg tablet RxNorm: 640873 TAKE ONE TABLET BY MOUTH DAILY, REPLACES 10 MG DOSE 11/15/2018 12/18/2018 Inactive hydrocodone 10 mg-acetaminophen 325 mg tablet RxNorm: 733070 1-2 Tablet(s) PO QID as needed for pain MUST LAST 30 DAYS 11/13/2018 12/12/2018 Inactiv e (Response to an electronic controlled substance refill request - RxReferenceNumber: [id number]) nystatin 100,000 unit/gram topical cream RxNorm: 054620 APPLY TO AFFECTED AREA(S) TWO TIMES A DAY 10/23/2018 11/06/2018 Inactive lisinopril 20 mg tablet RxNorm: 584185 1 Tablet(s) PO QD replac es 10mg dose 10/18/2018 11/14/2018 Inactive hydrocodone 10 mg-acetaminophen 325 mg tablet RxNorm: 692893 1-2 Tablet(s) QID as needed for pain MUST LAST 30 DAYS 10/08/2018 11/06/2018 Inactive (Response to an electronic controlled substance refill request - RxReferenceNumber: [id number]) lisinopril 10 mg tablet RxNorm: 293469 1 Tablet(s) PO QD 10/03/2018 0 01/21/2019 Inactive Celebrex 200 mg capsule RxNorm: 532514 TAKE ONE CAPSULE BY MOUT H TWICE A DAY 09/30/2018 05/04/2019 Inactive cyclobenzaprine 10 mg tablet RxNorm: 464159 TAKE ONE TA BLET BY MOUTH THREE TIMES A DAY NEEDED FOR MUSCLE SPASMS 09/30/2018 11/18/2018 Inactive doxepin 25 mg capsule RxNorm: 7413070 TAKE ONE CAPSULE B Y MOUTH EVERY NIGHT AT BEDTIME NEEDED 09/05/2018 10/16/2018 Inactive omeprazole 40 mg capsule,delayed release RxNorm: 807608 TAKE ONE CAPSULE BY MOUTH DAILY 09/05/2018 01/21/2019 Inactive furosemide 40 mg tablet RxNorm: 844353 TAKE ONE TABLET BY MOUTH EVERY MORNING NEEDED FOR EDEMA . TAKE WITH POTASSIUM 09/05/2018 11/03/2018 Inactive phentermine 37.5 mg tablet RxNorm: 995705 1 Tablet(s) PO QAM 201701/21/2019 Inactive doxepin 25 mg capsule RxNorm: 9541825 1 Capsule(s) PO QH S as needed for sleep TAKE ONE CAPSULE BY MOUTH EVERY NIGHT AT BEDTIME NEEDED 08/27/2018 09/04/2018 Inactive Keflex 500 mg capsule RxNorm: 259181 1 Capsule(s) PO TID 08/09/2018 1 10/19/2017 Inactive Diflucan 100 mg tablet RxNorm: 110109 1 Tablet(s) PO QD 08/09/2018 Inactive Premarin 1.25 mg tablet RxNorm: 249639 2 Tablet(s) PO QD 08/09/2018 0 05/04/2019 Inactive Zofran ODT 4 mg disintegrating tablet RxNorm: 957167 1 Tablet(s) PO Q4H as needed for nausea 08/09/2018 01/21/2019 Inactive metoprolol tartrate 100 mg tablet RxNorm: 787672 TAKE O NE TABLET BY MOUTH TWICE A DAY 2018 10/04/2018 Inactive doxepin 25 mg capsule RxNorm: 8410266 TAKE ONE CAPSULE B Y MOUTH EVERY NIGHT AT BEDTIME NEEDED 2018 08/26/2018 Inactive cyclobenzaprine 10 mg tablet RxNorm: 070845 TAKE ONE TA BLET BY MOUTH THREE TIMES A DAY NEEDED FOR MUSCLE SPASMS 2018 09/29/2018 Inactive hydrocodone 10 mg-acetaminophen 325 mg tablet RxNorm: 318630 1-2 Tablet(s) QID as needed for pain MUST LAST 30 DAYS 07/29/2018 08/27/2018 Inactive (Response to an electronic controlled substance refill request - RxReferenceNumber: [id number]) nystatin 100,000 unit/gram topical powder RxNorm: 282546 Applic ation TOP BID 07/22/2018 08/04/2018 Inactive doxepin 25 mg capsule RxNorm: 7501935 1 Capsule(s) PO QHS as needed 07/22/2018 08/05/2018 Inactive triamterene 75 mg-hydrochlorothiazide 50 mg tablet RxNorm: 3 05409 TAKE ONE TABLET BY MOUTH DAILY 07/05/2018 10/02/2018 Inactive duloxetine 60 mg capsule,delayed release RxNorm: 552005 TAKE ONE CAPSULE BY MOUTH DAILY 07/05/2018 09/02/2018 Inactive Klor-Con 8 mEq tablet,extended release RxNorm: 561653 T FARRUKH ONE TABLET BY MOUTH TWICE A DAY 07/05/2018 10/02/2018 Inactive Lipitor 10 mg tablet RxNorm: 379234 TAKE ONE TABLET BY MOUTH AT BEDTIME 07/05/2018 09/02/2018 Inactive allopurinol 300 mg tablet RxNorm: 657120 TAKE ONE TABLET BY LOPEZ TH DAILY 07/05/2018 10/02/2018 Inactive clonidine HCl 0.1 mg tablet RxNorm: 138793 TAKE ONE TAB LET BY MOUTH FOUR TIMES A DAY 07/05/2018 10/02/2018 Inactive hydrocodone 10 mg-acetaminophen 325 mg tablet RxNorm: 009003 1-2 Tablet(s) QID as needed for pain MUST LAST 30 DAYS 06/28/2018 07/27/2018 Inactive (Response to an electronic controlled substance refill request - RxReferenceNumber: [id number]) MediHoney (calcium alginate-honey) 4" X 5" bandage RxNorm: 1 Application TOP QD 06/17/2018 06/26/2018 Inactive honey-hydrocolloid dressing 4" X 5" RxNorm: 1 Application TOP QD 06/17/2018 07/16/2018 Inactive furosemide 40 mg tablet RxNorm: 604734 TAKE ONE TABLET BY MOUTH EVERY MORNING NEEDED FOR EDEMA . TAKE WITH POTASSIUM 06/10/2018 07/09/2018 Inactive This is a refill request. hydrocodone 10 mg-acetaminophen 325 mg tablet RxNorm: 983557 1-2 Tablet(s) QID as needed for pain MUST LAST 30 DAYS 05/30/2018 06/27/2018 Inactive (Response to an electronic controlled substance refill request - RxReferenceNumber: [id number]) acyclovir 800 mg tablet RxNorm: 216682 1 Tablet(s) PO 5x day 201705/22/2018 Inactive Premarin 1.25 mg tablet RxNorm: 720228 1-2 Tablet(s) PO QD 05/15/2007/13/2018 Inactive cyclobenzaprine 10 mg tablet RxNorm: 909788 1 Tablet(s) PO TID as needed for muscle spasm 05/09/2018 05/08/2018 Inactive Medrol (Dustin) 4 mg tablets in a dose pack RxNorm: 978225 Tablet(s) PO As Directed 05/02/2018 06/16/2018 Inactive hydrocodone 10 mg-acetaminophen 325 mg tablet RxNorm: 191931 1-2 Tablet(s) QID as needed for pain MUST LAST 30 DAYS 04/30/2018 05/29/2018 Inactive (Response to an electronic controlled substance refill request - RxReferenceNumber: [id number]) duloxetine 60 mg capsule,delayed release RxNorm: 201487 TAKE ONE CAPSULE BY MOUTH DAILY 04/16/2018 05/15/2018 Inactive Celebrex 200 mg capsule RxNorm: 247793 TAKE ONE CAPSULE BY MOUT H TWICE A DAY 04/16/2018 06/14/2018 Inactive Singulair 10 mg tablet RxNorm: 480501 TAKE ONE TABLET BY MOUTH JOSÉ Y 04/16/2018 11/19/2018 Inactive Lipitor 10 mg tablet RxNorm: 283750 TAKE ONE TABLET BY MOUTH AT BEDTIME 04/16/2018 05/15/2018 Inactive hydrocodone 10 mg-acetaminophen 325 mg tablet RxNorm: 504468 1-2 Tablet(s) QID as needed for pain MUST LAST 30 DAYS 03/29/2018 04/27/2018 Inactive (Response to an electronic controlled substance refill request - RxReferenceNumber: [id number]) cyclobenzaprine 10 mg tablet RxNorm: 216200 1 Tablet(s) PO TID as needed for muscle spasm 03/18/2018 05/09/2018 Inactive omeprazole 40 mg capsule,delayed release RxNorm: 830681 1 Capsu le(s) PO QD 02/26/2018 08/24/2018 Inactive hydrocodone 10 mg-acetaminophen 325 mg tablet RxNorm: 817042 1-2 Tablet(s) QID as needed for pain MUST LAST 30 DAYS 02/26/2018 03/27/2018 Inactive (Response to an electronic controlled substance refill request - RxReferenceNumber: [id number]) metoprolol tartrate 100 mg tablet RxNorm: 363592 1 Tablet(s) PO BID 02/18/2018 08/05/2018 Inactive Lyrica 75 mg capsule RxNorm: 068856 1 Capsule(s) PO QHS 01/30/2018 Inactive phentermine 37.5 mg tablet RxNorm: 181895 1 Tablet(s) PO QAM 201706/16/2018 Inactive hydrocodone 10 mg-acetaminophen 325 mg tablet RxNorm: 347394 1-2 Tablet(s) QID as needed for pain MUST LAST 30 DAYS 01/29/2018 02/25/2018 Inactive (Response to an electronic controlled substance refill request - RxReferenceNumber: [id number]) Klor-Con 8 mEq tablet,extended release RxNorm: 302148 1 Tablet( s) PO BID 01/14/2018 07/04/2018 Inactive allopurinol 300 mg tablet RxNorm: 759971 1 Tablet(s) PO QD 01/15/2007/04/2018 Inactive Lipitor 10 mg tablet RxNorm: 596953 1 Tablet(s) PO QHS 01/14/201812/2017 Inactive triamterene 75 mg-hydrochlorothiazide 50 mg tablet RxNorm: 3 89709 1 Tablet(s) PO QD 01/14/2018 07/04/2018 Inactive hydrocodone 10 mg-acetaminophen 325 mg tablet RxNorm: 822643 1-2 Tablet(s) QID as needed for pain MUST LAST 30 DAYS 12/27/2017 01/25/2018 Inactive (Response to an electronic controlled substance refill request - RxReferenceNumber: [id number]) Onglyza 5 mg tablet RxNorm: 106963 1 Tablet(s) PO QD 12/18/201701/29 Inactive metformin 500 mg tablet RxNorm: 517283 1 Tablet(s) PO BID 12/11/2017 12/10/2017 Inactive metformin 500 mg tablet RxNorm: 587100 1 Tablet(s) PO BID 12/11/2017 12/17/2017 Inactive furosemide 40 mg tablet RxNorm: 161132 1 Tablet(s) PO Q AM prn edema--take with potassium 12/11/2017 06/08/2018 Inactive cyclobenzaprine 10 mg tablet RxNorm: 356097 1 Tablet(s) PO TID as needed for muscle spasm 12/11/2017 03/18/2018 Inactive hydrocodone 10 mg-acetaminophen 325 mg tablet RxNorm: 232751 1-2 Tablet(s) QID as needed for pain MUST LAST 30 DAYS 10/23/2017 11/21/2017 Inactive (Response to an electronic controlled substance refill request - RxReferenceNumber: [id number]) Lipitor 10 mg tablet RxNorm: 215076 1 Tablet(s) PO QHS 10/16/201703/2018 Inactive cyclobenzaprine 10 mg tablet RxNorm: 825702 1 Tablet(s) PO TID as needed for muscle spasm 10/09/2017 12/10/2017 Inactive hydroxyzine HCl 25 mg tablet RxNorm: 090559 1 Tablet(s) PO BID as needed for anxiety 09/20/2017 01/29/2018 Inactive Effexor XR 75 mg capsule,extended release RxNorm: 153848 1 Caps ule(s) PO QD 09/20/2017 01/29/2018 Inactive metoprolol tartrate 100 mg tablet RxNorm: 742845 1 Tablet(s) PO BID 08/20/2017 02/18/2018 Inactive baclofen 20 mg tablet RxNorm: 707612 1 Tablet(s) PO TID as needed for muscle spasm 08/20/2017 01/21/2019 Inactive clonidine HCl 0.1 mg tablet RxNorm: 231944 1 Tablet(s) PO QID 08/2005/16/2018 Inactive Seroquel 25 mg tablet RxNorm: 700583 1 Tablet(s) PO QHS 08/17/2017 Inactive Seroquel 25 mg tablet RxNorm: 897054 1 Tablet(s) PO QHS 08/17/2017 Inactive Diflucan 100 mg tablet RxNorm: 581635 TAKE ONE TABLET BY MOUTH JOSÉ Y 07/25/2017 08/07/2017 Inactive hydrocodone 10 mg-acetaminophen 325 mg tablet RxNorm: 169344 1-2 Tablet(s) QID as needed for pain MUST LAST 30 DAYS 07/19/2017 08/17/2017 Inactive (Response to an electronic controlled substance refill request - RxReferenceNumber: [id number]) clindamycin 300 mg capsule RxNorm: 242004 1 Capsule(s) PO TID 07/1907/28/2017 Inactive clotrimazole-betamethasone 1 %-0.05 % topical cream RxNorm: 656964 Application TOP BID to elbow rash 07/19/2017 06/16/2018 Inactive Singulair 10 mg tablet RxNorm: 471273 Tablet(s) TAKE ONE TABLET BY MOUTH DAILY 07/18/2017 04/13/2018 Inactive triamterene 75 mg-hydrochlorothiazide 50 mg tablet RxNorm: 3 45969 1 Tablet(s) PO QD 07/18/2017 01/14/2018 Inactive Celebrex 200 mg capsule RxNorm: 466702 Capsule(s) TAKE ONE CAPSULE BY MOUTH TWICE A DAY 07/18/2017 10/15/2017 Inactive hydrocodone 10 mg-acetaminophen 325 mg tablet RxNorm: 046058 1-2 Tablet(s) QID as needed for pain MUST LAST 30 DAYS 06/19/2017 07/18/2017 Inactive (Response to an electronic controlled substance refill request - RxReferenceNumber: [id number]) hydrocodone 10 mg-acetaminophen 325 mg tablet RxNorm: 274274 1-2 Tablet(s) QID as needed for pain MUST LAST 30 DAYS 06/19/2017 06/18/2017 Inactive (Response to an electronic controlled substance refill request - RxReferenceNumber: [id number]) baclofen 20 mg tablet RxNorm: 708856 1 Tablet(s) PO TID as needed for muscle spasm 06/18/2017 08/20/2017 Inactive Medrol (Dustin) 4 mg tablets in a dose pack RxNorm: 135551 Tablet(s) PO As Directed 06/05/2017 07/18/2017 Inactive omeprazole 40 mg capsule,delayed release RxNorm: 086041 1 Capsu le(s) PO QD 04/20/2017 10/16/2017 Inactive Premarin 1.25 mg tablet RxNorm: 560647 1-2 Tablet(s) PO QD 04/11/20 17 05/15/2018 Inactive duloxetine 60 mg capsule,delayed release RxNorm: 657850 1 Capsu le(s) PO QD 04/11/2017 09/19/2017 Inactive furosemide 40 mg tablet RxNorm: 377879 1 Tablet(s) PO Q AM prn edema--take with potassium 04/11/2017 12/11/2017 Inactive Klor-Con 8 mEq tablet,extended release RxNorm: 535710 1 Tablet( s) PO BID 04/11/2017 01/14/2018 Inactive Lipitor 10 mg tablet RxNorm: 768497 1 Tablet(s) PO QHS 04/11/201702/2018 Inactive amlodipine 5 mg-benazepril 20 mg capsule RxNorm: 987584 1 Capsu le(s) PO QD 04/11/2017 01/29/2018 Inactive allopurinol 300 mg tablet RxNorm: 134465 1 Tablet(s) PO QD 04/11/20 17 01/14/2018 Inactive clonidine HCl 0.1 mg tablet RxNorm: 552910 1 Tablet(s) PO QID 04/0508/19/2017 Inactive baclofen 20 mg tablet RxNorm: 573500 1 Tablet(s) PO TID as needed for muscle spasm 04/02/2017 06/18/2017 Inactive Premarin 1.25 mg tablet RxNorm: 784891 1-2 Tablet(s) PO QD 03/20/20 17 04/10/2017 Inactive hydrocodone 10 mg-acetaminophen 325 mg tablet RxNorm: 645052 1-2 Tablet(s) QID as needed for pain MUST LAST 30 DAYS 03/14/2017 01/21/2019 Inactive (Response to an electronic controlled substance refill request - RxReferenceNumber: [id number]) metoprolol tartrate 100 mg tablet RxNorm: 899492 1 Tablet(s) PO BID 02/12/2017 08/20/2017 Inactive hydrocodone 10 mg-acetaminophen 325 mg tablet RxNorm: 732039 1-2 Tablet(s) QID as needed for pain MUST LAST 30 DAYS 02/08/2017 03/09/2017 Inactive (Response to an electronic controlled substance refill request [facility] [id number]) metoprolol tartrate 100 mg tablet RxNorm: 270165 TAKE O NE TABLET BY MOUTH TWICE A DAY 01/11/2017 02/12/2017 Inactive metoprolol tartrate 100 mg tablet RxNorm: 619602 1 Tablet(s) PO BID 12/18/2016 12/17/2016 Inactive metoprolol tartrate 100 mg tablet RxNorm: 027319 1 Tablet(s) PO BID 12/18/2016 01/10/2017 Inactive furosemide 40 mg tablet RxNorm: 742665 1 Tablet(s) PO Q AM prn edema--take with potassium 12/13/2016 02/10/2017 Inactive amitriptyline 100 mg tablet RxNorm: 046521 1 Tablet(s) PO QHS 11/2812/12/2016 Inactive baclofen 20 mg tablet RxNorm: 964784 1 Tablet(s) PO TID as needed for muscle spasm 11/14/2016 04/01/2017 Inactive triamterene 75 mg-hydrochlorothiazide 50 mg tablet RxNorm: 3 10813 1 Tablet(s) PO QD 11/14/2016 11/13/2016 Inactive metolazone 2.5 mg tablet RxNorm: 369684 TAKE ONE TABLET BY MOUTH DAILY NEEDED FOR EDEMA 11/14/2016 12/12/2016 Inactive triamterene 75 mg-hydrochlorothiazide 50 mg tablet RxNorm: 3 90489 1 Tablet(s) PO QD 11/14/2016 07/18/2017 Inactive amitriptyline 50 mg tablet RxNorm: 370662 TAKE ONE TABL ET BY MOUTH AT BEDTIME NEEDED FOR SLEEP 11/14/2016 11/27/2016 Inactive Cymbalta 60 mg capsule,delayed release RxNorm: 844757 1 Capsule (s) PO QHS 11/14/2016 12/12/2016 Inactive clonidine HCl 0.1 mg tablet RxNorm: 658459 1 Tablet(s) PO QID 11/1304/04/2017 Inactive amitriptyline 50 mg tablet RxNorm: 054807 1 Tablet(s) P O QHS as needed for sleep 11/01/2016 11/27/2016 Inactive duloxetine 60 mg capsule,delayed release RxNorm: 255531 TAKE ONE CAPSULE BY MOUTH DAILY 10/20/2016 01/17/2017 Inactive allopurinol 300 mg tablet RxNorm: 799293 TAKE ONE TABLET BY LOPEZ TH DAILY 10/20/2016 01/16/2017 Inactive Lyrica 75 mg capsule RxNorm: 838128 TAKE ONE CAPSULE BY MOUTH EVERY NIGHT AT BEDTIME 10/20/2016 12/10/2016 Inactive Klor-Con 8 mEq tablet,extended release RxNorm: 632527 T FARRUKH ONE TABLET BY MOUTH TWICE A DAY 10/20/2016 01/17/2017 Inactive Celebrex 200 mg capsule RxNorm: 405617 TAKE ONE CAPSULE BY MOUT H TWICE A DAY 10/20/2016 07/18/2017 Inactive Bystolic 10 mg tablet RxNorm: 936962 TAKE ONE TABLET BY MOUTH EVERY NIGHT AT BEDTIME 10/20/2016 12/17/2016 Inactive amlodipine 5 mg-benazepril 20 mg capsule RxNorm: 161065 TAKE ONE CAPSULE BY MOUTH EVERY NIGHT AT BEDTIME -- TO REPLACE AMLODOPINE 10/20/20162016 Inactive Lipitor 10 mg tablet RxNorm: 090580 TAKE ONE TABLET BY MOUTH EVERY NIGHT AT BEDTIME 10/20/2016 01/17/2017 Inactive alprazolam 0.5 mg tablet RxNorm: 919269 3 Tablet(s) PO QHS as needed for sleep/anxiety 09/20/2016 10/31/2016 Inactive Tamiflu 75 mg capsule RxNorm: 846273 1 Capsule(s) PO QD 09/19/2016 Inactive Lyrica 75 mg capsule RxNorm: 221022 1 Capsule(s) PO QHS 09/19/2016 Inactive prednisone 20 mg tablet RxNorm: 013306 1 Tablet(s) PO QD 08/10/2016 1 10/17/2015 Inactive doxycycline hyclate 100 mg capsule RxNorm: 6088515 1 Capsule(s) PO BID 08/10/2016 08/19/2016 Inactive Medrol (Dustin) 4 mg tablets in a dose pack RxNorm: 154584 Tablet(s) PO As Directed 07/31/2016 08/22/2016 Inactive Singulair 10 mg tablet RxNorm: 711787 TAKE ONE TABLET BY MOUTH JOSÉ Y 07/27/2016 07/18/2017 Inactive hydrocodone 10 mg-acetaminophen 325 mg tablet RxNorm: 865042 1-2 Tablet(s) QID as needed for pain MUST LAST 30 DAYS 07/26/2016 08/24/2016 Inactive (Response to an electronic controlled substance refill request - RxReferenceNumber: [id number]) alprazolam 0.5 mg tablet RxNorm: 648301 3 Tablet(s) PO QHS as needed for anxiety or sleep 07/26/2016 09/20/2016 Inactive clindamycin 300 mg capsule RxNorm: 358194 1 Capsule(s) PO TID 07/2007/29/2016 Inactive Diflucan 100 mg tablet RxNorm: 677465 1 Tablet(s) PO QD 07/20/2016 Inactive Levaquin 500 mg tablet RxNorm: 093151 1 Tablet(s) PO QD 07/17/2016 Inactive Levaquin 500 mg tablet RxNorm: 544360 1 Tablet(s) PO QD 07/10/2016 Inactive Levaquin 500 mg tablet RxNorm: 665347 1 Tablet(s) PO QD 07/10/2016 Inactive mupirocin 2 % topical ointment RxNorm: 024594 TOP Apply topically to affected areas twice daily 07/06/2016 09/18/2016 Inactive Singulair 10 mg tablet RxNorm: 994767 TAKE ONE TABLET BY MOUTH JOSÉ Y 06/21/2016 01/21/2019 Inactive alprazolam 0.5 mg tablet RxNorm: 640293 TAKE THREE TABL ETS BY MOUTH AT BEDTIME NEEDED FOR SLEEP OR STRESS 05/22/2016 06/20/2016 Inactive triamterene 75 mg-hydrochlorothiazide 50 mg tablet RxNorm: 3 00991 1 Tablet(s) PO QD 04/26/2016 10/21/2016 Inactive Premarin 1.25 mg tablet RxNorm: 465525 1-2 Tablet(s) PO QD 04/26/20 16 03/20/2017 Inactive Klor-Con 8 mEq tablet,extended release RxNorm: 505700 1 Tablet( s) PO BID 04/26/2016 10/19/2016 Inactive Celebrex 200 mg capsule RxNorm: 493013 1 Capsule(s) PO BID TAKE ONE CAPSULE BY MOUTH EVERY DAY 04/26/2016 10/19/2016 Inactive Lipitor 10 mg tablet RxNorm: 380932 1 Tablet(s) PO QHS 04/26/201605/2017 Inactive allopurinol 300 mg tablet RxNorm: 228626 1 Tablet(s) PO QD TAKE ONE TABLET BY MOUTH EVERY DAY 04/26/2016 10/19/2016 Inactive amlodipine 5 mg-benazepril 20 mg capsule RxNorm: 796988 1 Capsule(s) PO QHS replaces amlodopine 04/26/2016 10/19/2016 Inactive duloxetine 60 mg capsule,delayed release RxNorm: 611318 1 Capsu le(s) PO QD 04/26/2016 10/19/2016 Inactive Bystolic 10 mg tablet RxNorm: 680699 1 Tablet(s) PO QHS 04/26/2016 Inactive Singulair 10 mg tablet RxNorm: 807109 1 Tablet(s) PO QD TAKE ONE TABLET BY MOUTH DAILY 04/26/2016 06/20/2016 Inactive clonidine HCl 0.1 mg tablet RxNorm: 206907 1 Tablet(s) PO QID 04/2610/22/2016 Inactive hydrocodone 10 mg-acetaminophen 325 mg tablet RxNorm: 913248 1-2 Tablet(s) QID as needed for pain TAKE ONE TO TWO TABLETS BY MOUTH FOUR TIMES A DAY . MUST LAST 30 DAYS 03/31/2016 04/29/2016 Inactive (Response to an electronic controlled substance refill request - RxReferenceNumber: [id number]) Klor-Con 8 mEq tablet,extended release RxNorm: 361690 T FARRUKH ONE TABLET BY MOUTH TWICE A DAY 03/24/2016 04/22/2016 Inactive prednisone 20 mg tablet RxNorm: 469374 1 Tablet(s) PO QD 03/09/2016 0 03/08/2016 Inactive prednisone 20 mg tablet RxNorm: 186771 1 Tablet(s) PO QD 03/09/2016 0 03/13/2016 Inactive alprazolam 0.5 mg tablet RxNorm: 672179 3 Tablet(s) PO QHS as needed for sleep/stress 03/02/2016 01/21/2019 Inactive mupirocin 2 % topical ointment RxNorm: 062597 TOP twice daily to affected areas of face and neck 02/21/2016 04/25/2016 Inactive clonidine HCl 0.1 mg tablet RxNorm: 656793 TAKE ONE TAB LET BY MOUTH FOUR TIMES A DAY 02/15/2016 03/15/2016 Inactive clonidine HCl 0.1 mg tablet RxNorm: 549411 1 Tablet(s) PO QID 02/1404/25/2016 Inactive Premarin 1.25 mg tablet RxNorm: 453877 1-2 Tablet(s) PO QD 02/15/20 16 03/15/2016 Inactive Klor-Con 8 mEq tablet,extended release RxNorm: 345189 T FARRUKH ONE TABLET BY MOUTH TWICE A DAY 02/15/2016 03/15/2016 Inactive potassium chloride ER 20 mEq tablet,extended release(part/cr yst) RxNorm: 213157 2 Tablet(s) PO BID 02/15/2016 03/15/2016 Inactive Macrobid 100 mg capsule RxNorm: 870568 1 Capsule(s) PO BID 01/24/20 16 01/30/2016 Inactive prednisone 20 mg tablet RxNorm: 513834 Take 3tabs PO QD x 2 days, then 2 tabs PO QD x 2 days, then 1 tab PO QD x 2 days, then 1/2 tab PO QDy x 2 days 12/23/2015 04/25/2016 Inactive Klor-Con 8 mEq tablet,extended release RxNorm: 752504 T FARRUKH ONE TABLET BY MOUTH TWICE A DAY 12/20/2015 02/14/2016 Inactive alprazolam 1 mg tablet RxNorm: 595127 1 1/2 Tablet(s) PO QHS 201501/23/2016 Inactive nystatin 100,000 unit/gram topical cream RxNorm: 579431 APPLY TO AFFECTED AREA(S) TWO TIMES A DAY 11/30/2015 12/14/2015 Inactive Singulair 10 mg tablet RxNorm: 977919 TAKE ONE TABLET BY MOUTH JOSÉ Y 11/18/2015 04/25/2016 Inactive allopurinol 300 mg tablet RxNorm: 196510 1 Tablet(s) PO QD TAKE ONE TABLET BY MOUTH EVERY DAY 10/26/2015 04/22/2016 Inactive Singulair 10 mg tablet RxNorm: 448979 TAKE ONE TABLET BY MOUTH JOSÉ Y 10/26/2015 11/17/2015 Inactive duloxetine 60 mg capsule,delayed release RxNorm: 128872 1 Capsu le(s) PO QD 10/26/2015 04/22/2016 Inactive triamterene 75 mg-hydrochlorothiazide 50 mg tablet RxNorm: 3 08928 1 Tablet(s) PO QD 10/26/2015 11/14/2016 Inactive potassium chloride ER 20 mEq tablet,extended release(part/cr yst) RxNorm: 554280 2 Tablet(s) PO BID 10/26/2015 02/14/2016 Inactive Lipitor 10 mg tablet RxNorm: 399805 1 Tablet(s) PO QHS 10/26/2015 Inactive amlodipine 5 mg-benazepril 20 mg capsule RxNorm: 568718 1 Capsule(s) PO QHS replaces amlodopine 10/26/2015 04/22/2016 Inactive Bystolic 10 mg tablet RxNorm: 340642 1 Tablet(s) PO QHS 10/26/2015 Inactive amlodipine 5 mg-benazepril 20 mg capsule RxNorm: 812208 1 Capsule(s) PO QHS replaces amlodopine 10/06/2015 10/25/2015 Inactive amlodipine 5 mg tablet RxNorm: 157607 1 Tablet(s) PO QHS 09/30/2015 0 04/25/2016 Inactive metolazone 2.5 mg tablet RxNorm: 517164 TAKE ONE TABLET BY MOUTH DAILY NEEDED FOR EDEMA 09/30/2015 01/21/2019 Inactive duloxetine 60 mg capsule,delayed release RxNorm: 256407 1 Capsu le(s) PO QD 09/30/2015 10/25/2015 Inactive cephalexin 500 mg capsule RxNorm: 580318 1 Capsule(s) PO BID 201509/23/2015 Inactive mupirocin 2 % topical ointment RxNorm: 191686 TOP twice daily to affected areas of face and neck 09/14/2015 02/20/2016 Inactive baclofen 20 mg tablet RxNorm: 212107 1 Tablet(s) PO TID as needed for muscle spasm 09/01/2015 11/14/2016 Inactive clonidine HCl 0.1 mg tablet RxNorm: 558096 1 Tablet(s) PO QID 09/0102/14/2016 Inactive alprazolam 1 mg tablet RxNorm: 958803 1 1/2 Tablet(s) PO QHS 201409/09/2015 Inactive baclofen 20 mg tablet RxNorm: 667982 1 Tablet(s) PO TID as needed for muscle spasm 07/23/2015 09/01/2015 Inactive omeprazole 40 mg capsule,delayed release RxNorm: 447645 1 Capsu le(s) PO QD 07/23/2015 04/25/2016 Inactive alprazolam 1 mg tablet RxNorm: 415061 1 1/2 Tablet(s) PO QHS 201408/10/2015 Inactive Bystolic 10 mg tablet RxNorm: 139530 1 Tablet(s) PO BID 06/24/2015 Inactive allopurinol 300 mg tablet RxNorm: 188177 1 Tablet(s) PO QD TAKE ONE TABLET BY MOUTH EVERY DAY 06/23/2015 10/20/2015 Inactive alprazolam 1 mg tablet RxNorm: 164252 1 1/2 Tablet(s) PO QHS 201407/06/2015 Inactive clonidine HCl 0.1 mg tablet RxNorm: 156208 1 Tablet(s) PO QID 06/0209/01/2015 Inactive clonidine HCl 0.1 mg tablet RxNorm: 758805 1 Tablet(s) PO QID 06/0206/01/2015 Inactive Cymbalta 60 mg capsule,delayed release RxNorm: 253774 1 Capsule (s) PO QHS 06/02/2015 08/30/2015 Inactive Cymbalta 60 mg capsule,delayed release RxNorm: 023361 1 Capsule (s) PO QHS 06/02/2015 06/01/2015 Inactive clonidine HCl 0.1 mg tablet RxNorm: 020384 1 Tablet(s) PO TID 05/3106/01/2015 Inactive replaces 0.2mg dose metolazone 2.5 mg tablet RxNorm: 808313 TAKE ONE TABLET BY MOUTH DAILY NEEDED FOR EDEMA 05/21/2015 06/19/2015 Inactive Singulair 10 mg tablet RxNorm: 823426 TAKE ONE TABLET BY MOUTH JOSÉ Y 05/21/2015 10/17/2015 Inactive Cymbalta 30 mg capsule,delayed release RxNorm: 791041 1 Capsule (s) PO QHS 05/20/2015 11/14/2016 Inactive betamethasone valerate 0.1 % topical cream RxNorm: 686586 Appli cation TOP BID 05/10/2015 04/25/2016 Inactive Bactroban 2 % topical ointment RxNorm: 152593 Application TOP BID 0 05/10/2015 06/20/2015 Inactive baclofen 20 mg tablet RxNorm: 464049 1 Tablet(s) PO TID as needed 0 04/26/2015 07/23/2015 Inactive Lipitor 10 mg tablet RxNorm: 115707 1 Tablet(s) PO QHS 04/26/201508/2016 Inactive clonidine HCl 0.1 mg tablet RxNorm: 334276 1 Tablet(s) PO TID 04/2605/30/2015 Inactive replaces 0.2mg dose Klor-Con 8 mEq tablet,extended release RxNorm: 658066 1 Tablet( s) PO BID 04/26/2015 04/25/2016 Inactive metolazone 2.5 mg tablet RxNorm: 322945 1 Tablet(s) PO QD as ne eded for edema 04/26/2015 04/25/2015 Inactive triamterene 75 mg-hydrochlorothiazide 50 mg tablet RxNorm: 3 58114 1 Tablet(s) PO QD 04/26/2015 10/22/2015 Inactive Premarin 1.25 mg tablet RxNorm: 443791 1-2 Tablet(s) PO QD 04/26/20 15 10/22/2015 Inactive Bystolic 10 mg tablet RxNorm: 391597 1 Tablet(s) PO QAM TAKE ONE TABLET BY MOUTH EVERY MORNING 04/23/2015 06/23/2015 Inactive clonidine HCl 0.1 mg tablet RxNorm: 974309 1 Tablet(s) PO TID 03/2304/25/2015 Inactive replaces 0.2mg dose nystatin 100,000 unit/gram topical cream RxNorm: 801811 Applica tion TOP BID 03/23/2015 06/20/2015 Inactive baclofen 20 mg tablet RxNorm: 065875 1 Tablet(s) PO TID as needed 0 03/23/2015 04/25/2015 Inactive Premarin 1.25 mg tablet RxNorm: 982494 1-2 Tablet(s) PO QD 03/23/20 15 04/25/2015 Inactive Klor-Con 8 mEq tablet,extended release RxNorm: 095207 1 Tablet( s) PO BID 03/23/2015 04/25/2015 Inactive cefdinir 300 mg capsule RxNorm: 288534 2 Capsule(s) PO QD 03/16/2015 03/25/2015 Inactive baclofen 20 mg tablet RxNorm: 701482 1 Tablet(s) PO TID as needed 0 03/02/2015 03/22/2015 Inactive allopurinol 300 mg tablet RxNorm: 751653 1 Tablet(s) PO QD TAKE ONE TABLET BY MOUTH EVERY DAY 02/22/2015 05/22/2015 Inactive Klor-Con M20 mEq tablet,extended release RxNorm: 668544 2 Tablet(s) PO BID to use with lasix 02/22/2015 06/20/2015 Inactive clonidine HCl 0.1 mg tablet RxNorm: 274052 1 Tablet(s) PO TID 02/1903/22/2015 Inactive replaces 0.2mg dose Lipitor 10 mg tablet RxNorm: 165236 1 Tablet(s) PO QHS 01/20/201506/2015 Inactive Lipitor 10 mg tablet RxNorm: 099040 1 Tablet(s) PO QHS 01/20/2015 Inactive Singulair 10 mg tablet RxNorm: 040779 1 Tablet(s) PO QD TAKE ONE TABLET BY MOUTH EVERY DAY 11/20/2014 05/18/2015 Inactive Lipitor 10 mg tablet RxNorm: 496828 1 Tablet(s) PO QHS 11/20/201408/2015 Inactive allopurinol 300 mg tablet RxNorm: 776452 1 Tablet(s) PO QD TAKE ONE TABLET BY MOUTH EVERY DAY 11/20/2014 02/16/2015 Inactive Bystolic 10 mg tablet RxNorm: 491380 1 Tablet(s) PO QAM TAKE ONE TABLET BY MOUTH EVERY MORNING 11/20/2014 04/22/2015 Inactive Klor-Con 8 mEq tablet,extended release RxNorm: 472609 1 Tablet( s) PO BID 11/20/2014 02/17/2015 Inactive baclofen 20 mg tablet RxNorm: 391376 1 Tablet(s) PO TID as needed 0 11/20/2014 01/21/2019 Inactive baclofen 20 mg tablet RxNorm: 855679 1 Tablet(s) PO TID as needed 0 10/27/2014 11/19/2014 Inactive baclofen 20 mg tablet RxNorm: 726900 1 Tablet(s) PO TID as needed 0 10/26/2014 03/01/2015 Inactive allopurinol 300 mg tablet RxNorm: 066914 1 Tablet(s) PO QD TAKE ONE TABLET BY MOUTH EVERY DAY 10/26/2014 11/20/2014 Inactive Bystolic 10 mg tablet RxNorm: 967246 1 Tablet(s) PO QAM TAKE ONE TABLET BY MOUTH EVERY MORNING 10/26/2014 11/20/2014 Inactive clonidine HCl 0.1 mg tablet RxNorm: 688582 1 Tablet(s) PO TID 09/2805/27/2019 Inactive replaces 0.2mg dose clonidine HCl 0.1 mg tablet RxNorm: 312959 1 Tablet(s) PO TID 09/2802/18/2015 Inactive replaces 0.2mg dose baclofen 20 mg tablet RxNorm: 730861 1 Tablet(s) PO TID as needed 1 11/01/2013 08/30/2014 Inactive Lipitor 10 mg tablet RxNorm: 782828 1 Tablet(s) PO QHS 08/31/2014 Inactive baclofen 20 mg tablet RxNorm: 892381 1 Tablet(s) PO TID as needed 1 11/01/2013 10/26/2014 Inactive triamterene 75 mg-hydrochlorothiazide 50 mg tablet RxNorm: 3 76244 1 Tablet(s) PO QD 08/31/2014 02/26/2015 Inactive Klor-Con 8 mEq tablet,extended release RxNorm: 968973 1 Tablet( s) PO BID 08/31/2014 11/20/2014 Inactive baclofen 20 mg tablet RxNorm: 706664 1 Tablet(s) PO TID as needed 1 09/30/2013 10/25/2014 Inactive baclofen 20 mg tablet RxNorm: 171191 1 Tablet(s) PO TID as needed 1 09/30/2013 08/31/2014 Inactive omeprazole 40 mg capsule,delayed release RxNorm: 705958 1 Capsu le(s) PO QD 07/21/2014 07/23/2015 Inactive Flonase 50 mcg/actuation nasal spray,suspension RxNorm: 8963 23 1 [place] NASAL BID 07/15/2014 04/09/2017 Inactive hydrocodone 10 mg-acetaminophen 325 mg tablet RxNorm: 112527 1-2 Tablet(s) QID as needed for pain TAKE ONE TO TWO TABLETS BY MOUTH FOUR TIMES A DAY . MUST LAST 30 DAYS 06/30/2014 07/27/2014 Inactive (Response to an electronic controlled substance refill request - RxReferenceNumber: [id number]) baclofen 20 mg tablet RxNorm: 153079 1 Tablet(s) PO TID as needed 1 07/31/2014 Inactive Singulair 10 mg tablet RxNorm: 146438 1 Tablet(s) PO QD TAKE ONE TABLET BY MOUTH EVERY DAY 05/25/2014 11/20/2014 Inactive Bystolic 10 mg tablet RxNorm: 339441 TAKE ONE TABLET BY MOUTH E VERY MORNING 05/25/2014 09/21/2014 Inactive allopurinol 300 mg tablet RxNorm: 579309 1 Tablet(s) PO QD TAKE ONE TABLET BY MOUTH EVERY DAY 05/25/2014 10/21/2014 Inactive baclofen 20 mg tablet RxNorm: 719099 1 Tablet(s) PO TID as needed 0 05/25/2014 06/29/2014 Inactive allopurinol 300 mg tablet RxNorm: 182399 TAKE ONE TABLET BY LOPEZ TH EVERY DAY 05/25/2014 09/21/2014 Inactive Singulair 10 mg tablet RxNorm: 491042 1 Tablet(s) PO QD TAKE ONE TABLET BY MOUTH EVERY DAY 05/25/2014 05/24/2014 Inactive Bystolic 10 mg tablet RxNorm: 698381 1 Tablet(s) PO QAM TAKE ONE TABLET BY MOUTH EVERY MORNING 05/25/2014 10/21/2014 Inactive metolazone 2.5 mg tablet RxNorm: 445824 1 Tablet(s) PO QD as ne eded for edema 05/18/2014 04/25/2015 Inactive Lasix 40 mg tablet RxNorm: 349218 1 Tablet(s) PO RAZA ramirez take potassium supplementation with this medication 05/14/2014 05/17/2014 Inactive hydrocodone 10 mg-acetaminophen 325 mg tablet RxNorm: 505902 1-2 Tablet(s) QID as needed for pain TAKE ONE TO TWO TABLETS BY MOUTH FOUR TIMES A DAY . MUST LAST 30 DAYS 05/07/2014 06/05/2014 Inactive (Response to an electronic controlled substance refill request - RxReferenceNumber: [id number]) alprazolam 0.5 mg tablet RxNorm: 323735 TAKE ONE TABLET BY MOUTH TWICE A DAY , MUST LAST 30 DAYS 05/07/2014 05/22/2016 Inactive (Response to a n electronic controlled substance refill request - RxReferenceNumber: [id number]) diclofenac sodium 75 mg tablet,delayed release RxNorm: 72790 6 1 Tablet(s) PO BID for pain 04/24/2014 07/20/2014 Inactive Celebrex 200 mg capsule RxNorm: 266838 TAKE ONE CAPSULE BY MOUT H EVERY DAY 04/24/2014 07/20/2014 Inactive alprazolam 0.5 mg tablet RxNorm: 119861 TAKE ONE TABLET BY MOUTH TWICE A DAY , MUST LAST 30 DAYS 03/24/2014 04/22/2014 Inactive (Response to a n electronic controlled substance refill request - RxReferenceNumber: [id number]) diclofenac sodium 75 mg tablet,delayed release RxNorm: 66861 6 1 Tablet(s) PO BID for pain 03/24/2014 04/24/2014 Inactive clonidine HCl 0.1 mg tablet RxNorm: 136847 1 Tablet(s) PO TID 03/2409/28/2014 Inactive replaces 0.2mg dose Klor-Con 8 mEq tablet,extended release RxNorm: 977879 1 Tablet( s) PO BID 02/26/2014 08/31/2014 Inactive diclofenac sodium 75 mg tablet,delayed release RxNorm: 41649 6 1 Tablet(s) PO BID for pain 02/25/2014 03/24/2014 Inactive hydrocodone 10 mg-acetaminophen 325 mg tablet RxNorm: 025298 1-2 Tablet(s) QID as needed for pain TAKE ONE TO TWO TABLETS BY MOUTH FOUR TIMES A DAY . MUST LAST 30 DAYS 02/25/2014 03/26/2014 Inactive (Response to an electronic controlled substance refill request - RxReferenceNumber: [id number]) alprazolam 0.5 mg tablet RxNorm: 022237 Tablet(s) PO BI D as needed for anxiety TAKE ONE TABLET BY MOUTH TWICE A DAY , MUST LAST 30 DAYS 02/25/2014 Inactive (Response to an electronic controlled [place] bstance refill request - RxReferenceNumber: [id number]) [AttnRPh: Saving apply/adjudicate RxGRP:SG20 RxBIN:[id number] RxPCN: ID#:[id number]] alprazolam 0.5 mg tablet RxNorm: 570303 Tablet(s) TAKE ONE TABLET BY MOUTH TWICE A DAY , MUST LAST 30 DAYS 01/27/2014 02/24/2014 Inactive (Respo nse to an electronic controlled substance refill request - RxReferenceNumber: [id number]) [AttnRPh: Saving apply/adjudicate RxGRP:SG20 RxBIN:[id number] RxPCN: ID#:[id number]] hydrocodone 10 mg-acetaminophen 325 mg tablet RxNorm: 081696 1-2 Tablet(s) QID as needed for pain TAKE ONE TO TWO TABLETS BY MOUTH FOUR TIMES A DAY . MUST LAST 30 DAYS 01/27/2014 02/24/2014 Inactive (Response to an electronic controlled substance refill request - RxReferenceNumber: [id number]) alprazolam 0.5 mg tablet RxNorm: 536039 TAKE ONE TABLET BY MOUTH TWICE A DAY , MUST LAST 30 DAYS 01/27/2014 01/26/2014 Inactive (Response to a n electronic controlled substance refill request - RxReferenceNumber: [id number]) Premarin 1.25 mg tablet RxNorm: 686628 1-2 Tablet(s) PO QD 01/28/20 14 07/25/2014 Inactive alprazolam 0.5 mg tablet RxNorm: 940126 TAKE ONE TABLET BY MOUTH TWICE A DAY , MUST LAST 30 DAYS 01/27/2014 01/27/2014 Inactive (Response to a n electronic controlled substance refill request - RxReferenceNumber: [id number]) hydrocodone 10 mg-acetaminophen 325 mg tablet RxNorm: 251908 TAKE ONE TO TWO TABLETS BY MOUTH FOUR TIMES A DAY . MUST LAST 30 DAYS 01/27/20142013 Inactive (Response to an electronic controlled [place] bstance refill request - RxReferenceNumber: [id number]) Celebrex 200 mg capsule RxNorm: 486847 1 Capsule(s) PO QD TAKE ONE CAPSULE BY MOUTH EVERY DAY 12/29/2013 04/27/2014 Inactive hydrocodone 10 mg-acetaminophen 325 mg tablet RxNorm: 151214 1-2 Tablet(s) PO QID as needed for severe pain 12/29/2013 01/27/2014 Inactive allopurinol 300 mg tablet RxNorm: 791110 1 Tablet(s) PO QD TAKE ONE TABLET BY MOUTH EVERY DAY 12/29/2013 05/24/2014 Inactive alprazolam 0.5 mg tablet RxNorm: 834909 TAKE ONE TABLET BY MOUTH TWICE A DAY , MUST LAST 30 DAYS 12/29/2013 01/27/2014 Inactive (Response to a n electronic controlled substance refill request - RxReferenceNumber: [id number]) Celebrex 200 mg capsule RxNorm: 352897 1 Capsule(s) PO QD TAKE ONE CAPSULE BY MOUTH EVERY DAY 12/29/2013 12/29/2013 Inactive Bystolic 10 mg tablet RxNorm: 620723 1 Tablet(s) PO QAM TAKE ONE TABLET BY MOUTH EVERY MORNING 12/29/2013 05/24/2014 Inactive Bystolic 10 mg tablet RxNorm: 023048 1 Tablet(s) PO QAM TAKE ONE TABLET BY MOUTH EVERY MORNING 12/29/2013 12/29/2013 Inactive Singulair 10 mg tablet RxNorm: 868033 1 Tablet(s) PO QD TAKE ONE TABLET BY MOUTH EVERY DAY 12/29/2013 05/25/2014 Inactive hydrocodone 10 mg-acetaminophen 325 mg tablet RxNorm: 327315 TAKE ONE TO TWO TABLETS BY MOUTH FOUR TIMES A DAY . MUST LAST 30 DAYS 12/29/20132013 Inactive (Response to an electronic controlled [place] bstance refill request - RxReferenceNumber: [id number]) Trazadone 75mg Tablet RxNorm: 1 Tablet(s) PO QHS as needed 03/23/2014 Inactive Trazadone 75mg Tablet RxNorm: 1 Tablet(s) PO QHS 12/24/20132014 Inactive Soma 350 mg tablet RxNorm: 080706 Tablet(s) PO TAKE ON E TABLET BY MOUTH THREE TIMES A DAY NEEDED FOR MUSCLE SPASMS. THIS MUST LAST 30 DAYS BETWEEN REFILLS. 12/10/2013 12/22/2013 Inactive (Appended: Cont rolled substance eRx refill - RxReferenceNumber: [id number]) diclofenac sodium 75 mg tablet,delayed release RxNorm: 41169 6 1 Tablet(s) PO BID for pain 12/10/2013 02/24/2014 Inactive allopurinol 300 mg tablet RxNorm: 767248 1 Tablet(s) PO QD 11/20/19 14 12/29/2013 Inactive alprazolam 0.5 mg tablet RxNorm: 243412 2 Tablet(s) PO BID 11/13/19 14 12/29/2013 Inactive prn clonidine 0.1 mg tablet RxNorm: 439122 1 Tablet(s) PO TID 11/12/2013 02/09/2014 Inactive replaces 0.2mg dose Klor-Con M20 mEq tablet,extended release RxNorm: 154427 2 Tablet(s) PO BID to use with lasix 11/12/2013 05/10/2014 Inactive Singulair 10 mg tablet RxNorm: 327366 1 Tablet(s) PO QD 11/12/2013 Inactive hydrocodone 10 mg-acetaminophen 325 mg tablet RxNorm: 071579 1-2 Tablet(s) PO QID as needed for severe pain 11/12/2013 12/28/2013 Inactive Bystolic 10 mg tablet RxNorm: 358251 1 Tablet(s) PO QAM 11/12/2013 Inactive Soma 350 mg tablet RxNorm: 145251 Tablet(s) PO TAKE ON E TABLET BY MOUTH THREE TIMES A DAY NEEDED FOR MUSCLE SPASMS. THIS MUST LAST 30 DAYS BETWEEN REFILLS. 10/13/2013 12/10/2013 Inactive (Appended: Cont rolled substance eRx refill - RxReferenceNumber: [id number]) hydrocodone 10 mg-acetaminophen 325 mg tablet RxNorm: 940475 1-2 Tablet(s) PO QID as needed for severe pain 10/03/2013 11/11/2013 Inactive diclofenac sodium 75 mg tablet,delayed release RxNorm: 17576 8 1 Tablet(s) PO BID for pain 09/11/2013 12/10/2013 Inactive alprazolam 0.5 mg tablet RxNorm: 048853 1 Tablet(s) PO BID May refill on 04/26/13 09/01/2013 10/30/2013 Inactive prn hydrocodone 10 mg-acetaminophen 325 mg tablet RxNorm: 403964 1-2 Tablet(s) PO QID as needed for severe pain 09/01/2013 10/02/2013 Inactive triamterene 75 mg-hydrochlorothiazide 50 mg tablet RxNorm: 3 56051 1 Tablet(s) PO QD 08/04/2013 08/31/2014 Inactive cyclobenzaprine 10 mg tablet RxNorm: 378254 1 Tablet(s) PO TID prn spasm 08/04/2013 08/13/2013 Inactive clonidine 0.1 mg tablet RxNorm: 237880 1 Tablet(s) PO TID 08/04/2013 11/11/2013 Inactive replaces 0.2mg dose cyclobenzaprine 10 mg tablet RxNorm: 824271 1 Tablet(s) PO TID prn spasm 07/23/2013 08/01/2013 Inactive hydrocodone 10 mg-acetaminophen 325 mg tablet RxNorm: 341325 2 1-2 Tablet(s) PO QID as needed for severe pain 06/09/2013 08/07/2013 Inactive Singulair 10 mg tablet RxNorm: 513022 1 Tablet(s) PO QD 05/29/2013 Inactive Klor-Con 8 mEq tablet,extended release RxNorm: 012995 1 Tablet( s) PO BID 05/29/2013 02/26/2014 Inactive allopurinol 300 mg tablet RxNorm: 025168 1 Tablet(s) PO QD 05/29/20 13 11/19/2013 Inactive Bystolic 10 mg tablet RxNorm: 365078 1 Tablet(s) PO QAM take one daily in the morning. 05/29/2013 11/11/2013 Inactive scopolamine 1.5 mg 72 hr Transderm Patch RxNorm: 355569 Application TD Q72H for motion sickness 05/26/2013 07/22/2013 Inactive Soma 350 mg tablet RxNorm: 952491 1 Tablet(s) PO TID as needed for spasm 05/19/2013 10/13/2013 Inactive diclofenac sodium 75 mg tablet,delayed release RxNorm: 72790 8 1 Tablet(s) PO BID for pain 05/14/2013 07/22/2013 Inactive allopurinol 300 mg tablet RxNorm: 837800 1 Tablet(s) PO QD 04/25/20 13 05/28/2013 Inactive alprazolam 0.5 mg tablet RxNorm: 532473 1 Tablet(s) PO BID May refill on 04/26/13 04/25/2013 06/23/2013 Inactive prn Celebrex 200 mg capsule RxNorm: 706920 1 Capsule(s) PO QD 04/16/2013 12/29/2013 Inactive alprazolam 0.5 mg tablet RxNorm: 653773 1 Tablet(s) PO BID May refill on 04/26/13 04/16/2013 04/24/2013 Inactive prn Soma 350 mg tablet RxNorm: 593194 1 Tablet(s) PO TID as needed for spasm 04/16/2013 No Stop Date Active Lasix 40 mg tablet RxNorm: 988953 1 Tablet(s) PO QAM s hould take potassium supplementation with this medication 04/16/2013 06/14/2013 Inactive clonidine 0.1 mg tablet RxNorm: 210771 1 Tablet(s) PO TID 04/16/2013 08/03/2013 Inactive replaces 0.2mg dose prednisone 20 mg tablet RxNorm: 697769 1 Tablet(s) PO BID 04/16/2013 04/20/2013 Inactive diclofenac sodium 75 mg tablet,delayed release RxNorm: 66117 8 1 Tablet(s) PO BID for pain 04/14/2013 05/13/2013 Inactive hydrocodone 10 mg-acetaminophen 325 mg tablet RxNorm: 887872 2 1-2 Tablet(s) PO QID as needed for severe pain 04/14/2013 No Stop Date Active Lasix 40 mg tablet RxNorm: 445712 1 Tablet(s) PO QAM s hould take potassium supplementation with this medication 03/31/2013 04/15/2013 Inactive Celebrex 200 mg capsule RxNorm: 816023 1 Capsule(s) PO QD 03/31/2013 04/15/2013 Inactive alprazolam 0.5 mg tablet RxNorm: 836433 1 Tablet(s) PO BID 03/28/20 13 04/15/2013 Inactive prn hydrocodone 10 mg-acetaminophen 325 mg tablet RxNorm: 349404 2 1-2 Tablet(s) PO QID as needed for severe pain 03/10/2013 No Stop Date Active metformin ER 500 mg 24 hr tablet,extended release RxNorm: 86 1018 1 Tablet(s) PO QD 03/06/2013 07/22/2013 Inactive clindamycin 300 mg capsule RxNorm: 220526 2 Capsule(s) PO TID 03/0503/14/2013 Inactive Zaroxolyn 2.5 mg tablet RxNorm: 541606 1 Tablet(s) PO QAM 03/05/2013 05/19/2015 Inactive amlodipine 10 mg tablet RxNorm: 648954 1 Tablet(s) PO QD 03/03/2013 0 05/25/2013 Inactive Norvasc 10 mg tablet RxNorm: 012880 1 Tablet(s) PO QD 02/28/201307/11 Inactive Celebrex 200 mg capsule RxNorm: 672237 1 Capsule(s) PO QD 02/28/2013 03/30/2013 Inactive diclofenac sodium 75 mg tablet,delayed release RxNorm: 85033 8 1 Tablet(s) PO BID for pain 02/14/2013 03/15/2013 Inactive Soma 350 mg tablet RxNorm: 345387 1 Tablet(s) PO TID as needed for spasm 02/14/2013 No Stop Date Active hydrocodone 10 mg-acetaminophen 325 mg tablet RxNorm: 110489 2 1-2 Tablet(s) PO QID as needed for severe pain 02/14/2013 No Stop Date Active Norvasc 10 mg tablet RxNorm: 644285 1 Tablet(s) PO QD 02/10/201302/09 Inactive Celebrex 200 mg capsule RxNorm: 566381 1 Capsule(s) PO QD 01/27/2013 01/26/2013 Inactive Premarin 1.25 mg tablet RxNorm: 612895 1-2 Tablet(s) PO QD 01/28/20 13 06/25/2013 Inactive alprazolam 0.5 mg tablet RxNorm: 055980 1 Tablet(s) PO BID 01/28/20 13 02/25/2013 Inactive prn amlodipine 5 mg tablet RxNorm: 105225 1 Tablet(s) PO QD 01/27/2013 Inactive Celebrex 200 mg capsule RxNorm: 265519 1 Capsule(s) PO QD 01/27/2013 02/27/2013 Inactive gabapentin 600 mg tablet RxNorm: 383116 1 Tablet(s) PO QHS 01/16/20 13 07/22/2013 Inactive Soma 350 mg tablet RxNorm: 503021 1 Tablet(s) PO TID as needed for spasm 01/15/2013 No Stop Date Active hydrocodone 10 mg-acetaminophen 325 mg tablet RxNorm: 592927 2 1-2 Tablet(s) PO QID as needed for severe pain 01/15/2013 No Stop Date Active Soma 350 mg tablet RxNorm: 803729 1 Tablet(s) PO TID as needed for spasm 01/13/2013 No Stop Date Active alprazolam 0.5 mg tablet RxNorm: 146909 1 Tablet(s) PO BID 12/31/19 13 01/26/2013 Inactive prn diclofenac sodium 75 mg tablet,delayed release RxNorm: 06077 8 1 Tablet(s) PO BID for pain 12/09/2012 01/07/2013 Inactive gabapentin 600 mg tablet RxNorm: 305798 1 Tablet(s) PO QHS 12/10/19 13 01/07/2013 Inactive hydrocodone 10 mg-acetaminophen 325 mg tablet RxNorm: 026255 2 1-2 Tablet(s) PO QID as needed for severe pain 12/02/2012 No Stop Date Active Levaquin 750 mg tablet RxNorm: 261638 1 Tablet(s) PO QD 11/21/2012 Inactive Singulair 10 mg tablet RxNorm: 393575 1 Tablet(s) PO QD 11/11/2012 Inactive clonidine 0.2 mg tablet RxNorm: 834601 1 Tablet(s) PO TID 11/11/2012 04/15/2013 Inactive alprazolam 0.5 mg tablet RxNorm: 736830 1 Tablet(s) PO BID 11/12/19 13 12/10/2012 Inactive prn Klor-Con 8 mEq tablet,extended release RxNorm: 480986 1 Tablet( s) PO BID 11/11/2012 03/04/2013 Inactive hydrocodone 10 mg-acetaminophen 325 mg tablet RxNorm: 416601 2 1-2 Tablet(s) PO QID as needed for severe pain 11/06/2012 No Stop Date Active alprazolam 0.5 mg tablet RxNorm: 634201 1 Tablet(s) PO BID 10/15/19 13 11/10/2012 Inactive prn hydrocodone-acetaminophen 10 mg-325 mg tablet RxNorm: 664849 2 1-2 Tablet(s) PO QID as needed for severe pain 10/10/2012 10/09/2012 Inactive allopurinol 300 mg tablet RxNorm: 154905 1 Tablet(s) PO QD 09/20/19 13 12/18/2012 Inactive alprazolam 0.5 mg tablet RxNorm: 339760 1 Tablet(s) PO BID 09/17/19 13 10/14/2012 Inactive prn hydrocodone-acetaminophen 10 mg-325 mg tablet RxNorm: 788122 2 1-2 Tablet(s) PO QID as needed for severe pain 08/22/2012 08/21/2012 Inactive Norvasc 10 mg tablet RxNorm: 685707 1 Tablet(s) PO QD 08/12/201201/10 Inactive Premarin 1.25 mg tablet RxNorm: 196734 1-2 Tablet(s) PO QD 07/30/20 12 12/26/2012 Inactive alprazolam 0.5 mg tablet RxNorm: 293143 1 Tablet(s) PO BID 07/29/20 12 08/27/2012 Inactive prn Klor-Con 8 mEq tablet,extended release RxNorm: 880984 1 Tablet( s) PO BID 07/29/2012 11/10/2012 Inactive hydrocodone-acetaminophen 10 mg-325 mg tablet RxNorm: 962120 2 1-2 Tablet(s) PO QID as needed for severe pain 07/29/2012 No Stop Date Active Premarin 1.25 mg tablet RxNorm: 425233 1-2 Tablet(s) PO QD 07/29/20 12 07/29/2012 Inactive clonidine 0.2 mg tablet RxNorm: 083202 1 Tablet(s) PO TID 07/29/2012 10/28/2012 Inactive ketorolac 10 mg tablet RxNorm: 249609 1 Tablet(s) PO QID prn mitul leonardche 07/18/2012 No Stop Date Active hydrocodone-acetaminophen 10 mg-325 mg tablet RxNorm: 649946 2 1-2 Tablet(s) PO QID as needed for severe pain 07/03/2012 No Stop Date Active amlodipine 5 mg tablet RxNorm: 880204 1 Tablet(s) PO QD 07/02/2012 Inactive allopurinol 300 mg tablet RxNorm: 111656 1 Tablet(s) PO QD 07/02/2009/19/2012 Inactive Celebrex 200 mg capsule RxNorm: 966537 1 Capsule(s) PO QD for j oint pain 06/26/2012 10/23/2012 Inactive diclofenac sodium 75 mg tablet,delayed release RxNorm: 94146 8 1 Tablet(s) PO BID for pain 06/19/2012 09/16/2012 Inactive hydrocodone-acetaminophen 10 mg-325 mg tablet RxNorm: 528181 2 1-2 Tablet(s) PO QID as needed for severe pain 06/10/2012 No Stop Date Active alprazolam 0.5 mg tablet RxNorm: 374402 1 Tablet(s) PO BID 06/03/20 12 07/02/2012 Inactive prn ketorolac 10 mg tablet RxNorm: 619346 1 Tablet(s) PO Q8H 05/27/2012 0 01/21/2019 Inactive as needed for headache hydrocodone-acetaminophen 10 mg-325 mg tablet RxNorm: 915700 2 1-2 Tablet(s) PO QID as needed for severe pain 05/15/2012 No Stop Date Active allopurinol 300 mg tablet RxNorm: 391754 1 Tablet(s) PO QD 05/14/2006/12/2012 Inactive allopurinol 300 mg tablet RxNorm: 259565 1 Tablet(s) PO QD 05/14/20 12 05/13/2012 Inactive amlodipine 5 mg tablet RxNorm: 476006 1 Tablet(s) PO QD 05/01/2012 Inactive amlodipine 5 mg Tab RxNorm: 126007 1 Tablet(s) PO QD 05/01/201204/30 Inactive Celebrex 200 mg capsule RxNorm: 586126 1 Capsule(s) PO QD for j oint pain 05/01/2012 06/25/2012 Inactive Singulair 10 mg tablet RxNorm: 486844 1 Tablet(s) PO QD 05/01/2012 Inactive alprazolam 0.5 mg tablet RxNorm: 680449 1 Tablet(s) PO BID 05/01/2005/30/2012 Inactive prn Celebrex 200 mg Cap RxNorm: 994729 1 Capsule(s) PO QD for joint radu n 05/01/2012 04/30/2012 Inactive hydrocodone-acetaminophen 10 mg-325 mg tablet RxNorm: 326899 2 1-2 Tablet(s) PO QID as needed for severe pain 04/19/2012 No Stop Date Active Lasix 40 mg tablet RxNorm: 896565 1 Tablet(s) PO RAZA alan ashley take potassium supplementation with this medication 04/05/2012 06/03/2012 Inactive alprazolam 0.5 mg Tab RxNorm: 871416 1 Tablet(s) PO BID 04/05/2012 Inactive prn hydrocodone-acetaminophen 10 mg-325 mg Tab RxNorm: 3484172 1-2 Tablet(s) PO QID as needed for severe pain 03/25/2012 03/24/2012 Inactive clonidine 0.2 mg Tab RxNorm: 510448 1 Tablet(s) PO TID 03/08/2012 Inactive alprazolam 0.5 mg Tab RxNorm: 413677 1 Tablet(s) PO BID 03/08/2012 Inactive prn Soma 350 mg tablet RxNorm: 062435 1 Tablet(s) PO TID for spasm 02/0903/18/2012 Inactive clonidine 0.2 mg tablet RxNorm: 389012 1 Tablet(s) PO TID 03/08/2012 07/28/2012 Inactive Celebrex 200 mg Cap RxNorm: 295908 1 Capsule(s) PO QD for joint radu n 03/01/2012 04/29/2012 Inactive amlodipine 5 mg Tab RxNorm: 862288 1 Tablet(s) PO QD 02/26/201202/24 Inactive amlodipine 5 mg Tab RxNorm: 352137 1 Tablet(s) PO QD 02/26/201204/25 Inactive Bactroban 2 % Ointment RxNorm: 046859 Application TOP QID to sores 02/23/2012 No Stop Date Active amlodipine 2.5 mg tablet RxNorm: 786920 1 Tablet(s) PO QHS 02/20/20 12 02/25/2012 Inactive doxycycline hyclate 100 mg Cap RxNorm: 1998996 1 Capsule(s) PO BID 02/20/2012 02/29/2012 Inactive hydrocodone-acetaminophen 10 mg-325 mg Tab RxNorm: 0572949 1-2 T ablet(s) PO QID 02/08/2012 No Stop Date Active alprazolam 0.5 mg Tab RxNorm: 781661 1 Tablet(s) PO BID 02/08/2012 Inactive prn Singulair 10 mg Tab RxNorm: 803824 1 Tablet(s) PO QD 02/08/201204/30 Inactive Soma 350 mg Tab RxNorm: 904752 1 Tablet(s) PO TID for spasm 012 03/07/2012 Inactive Soma 350 mg Tab RxNorm: 760946 1 Tablet(s) PO TID for spasm 012 02/05/2012 Inactive diclofenac sodium 75 mg tablet,delayed release RxNorm: 88994 8 1 Tablet(s) PO BID for pain 02/01/2012 03/18/2012 Inactive Celebrex 200 mg Cap RxNorm: 374056 1 Capsule(s) PO QD for joint radu n 01/30/2012 02/28/2012 Inactive Lasix 40 mg Tab RxNorm: 307782 1 Tablet(s) PO QAM 01/24/2012 03/18/20 12 Inactive potassium chloride ER 20 mEq tablet,extended release(part/cr yst) RxNorm: 833645 2 Tablet(s) PO BID 01/24/2012 02/22/2012 Inactive alprazolam 0.5 mg Tab RxNorm: 604956 1 Tablet(s) PO BID 01/11/2012 Inactive prn hydrocodone-acetaminophen 10 mg-325 mg Tab RxNorm: 4281884 1-2 T ablet(s) PO QID 01/11/2012 No Stop Date Active Ambien 10 mg Tab RxNorm: 826043 1 Tablet(s) PO QHS 01/11/2012 012 Inactive Klor-Con 8 mEq Tab RxNorm: 267099 1 Tablet(s) PO BID 01/11/201201/22 Inactive diclofenac sodium 75 mg Tab, Delayed Release RxNorm: 375410 1 Tablet(s) PO BID for pain 01/10/2012 01/31/2012 Inactive Ambien 10 mg Tab RxNorm: 310610 1 Tablet(s) PO QHS 12/11/2011 012 Inactive alprazolam 0.5 mg Tab RxNorm: 650860 1 Tablet(s) PO BID 12/11/2011 Inactive prn hydrocodone 10 mg-acetaminophen 325 mg tablet RxNorm: 104512 1-2 Tablet(s) PO TID 11/28/2011 No Stop Date Active as needed for pa in - Previous quantity #240, will start dosing for #180 in April 2011 per Doctor Td. Ambien 10 mg Tab RxNorm: 992207 1 Tablet(s) PO QHS 11/09/2011 012 Inactive alprazolam 0.5 mg Tab RxNorm: 308800 1 Tablet(s) PO BID 11/09/2011 Inactive prn hydrocodone-acetaminophen 10 mg-325 mg Tab RxNorm: 4770851 1-2 T ablet(s) PO TID 11/06/2011 No Stop Date Active as needed for pain - Previous quantity #240, will start dosing for #180 in April 2011 per Doctor Td. Singulair 10 mg Tab RxNorm: 742766 1 Tablet(s) PO QD 10/13/201110/12 Inactive Singulair 10 mg Tab RxNorm: 198365 1 Tablet(s) PO QD 10/13/201102/06 Inactive hydrocodone-acetaminophen 10 mg-325 mg Tab RxNorm: 6288551 1-2 T ablet(s) PO TID 10/10/2011 10/09/2011 Inactive as needed for pain - Previous quantity #240, will start dosing for #180 in April 2011 per Doctor Td. hydrocodone-acetaminophen 10 mg-325 mg Tab RxNorm: 5001677 1-2 T ablet(s) PO TID 10/09/2011 No Stop Date Active as needed for pain - Previous quantity #240, will start dosing for #180 in April 2011 per Doctor Td. Klor-Con 8 mEq Tab RxNorm: 121388 1 Tablet(s) PO BID 10/02/201101/09 Inactive triamterene 75 mg-hydrochlorothiazide 50 mg tablet RxNorm: 3 87622 1 Tablet(s) PO QD 09/14/2011 03/06/2013 Inactive Ambien 10 mg Tab RxNorm: 033286 1 Tablet(s) PO QHS 09/14/2011 012 Inactive hydrocodone-acetaminophen 10 mg-325 mg Tab RxNorm: 0066815 1-2 T ablet(s) PO TID 09/14/2011 No Stop Date Active as needed for pain - Previous quantity #240, will start dosing for #180 in April 2011 per Doctor Td. alprazolam 0.5 mg Tab RxNorm: 807216 1 Tablet(s) PO BID 09/14/2011 Inactive prn Zithromax 500 mg Tab RxNorm: 6419416 1 Tablet(s) PO QD 09/13/201106/2012 Inactive prednisone 20 mg Tab RxNorm: 460118 1 Tablet(s) PO BID 08/31/2011 Inactive Ambien 10 mg Tab RxNorm: 317538 1 Tablet(s) PO QHS 08/17/2011 011 Inactive hydrocodone-acetaminophen 10 mg-325 mg Tab RxNorm: 4910915 1-2 T ablet(s) PO TID 08/17/2011 No Stop Date Active as needed for pain - Previous quantity #240, will start dosing for #180 in April 2011 per Doctor Td. clonidine 0.2 mg Tab RxNorm: 859457 1 Tablet(s) PO TID 08/17/201112/2011 Inactive Ambien 10 mg Tab RxNorm: 780421 1 Tablet(s) PO QHS 08/17/2011 019 Inactive alprazolam 0.5 mg Tab RxNorm: 347822 1 Tablet(s) PO BID 08/17/2011 Inactive prn hydrocodone-acetaminophen 10 mg-325 mg Tab RxNorm: 0187910 1-2 T ablet(s) PO TID 08/17/2011 08/16/2011 Inactive as needed for pain - Previous quantity #240, will start dosing for #180 in April 2011 per Doctor Td. Singulair 10 mg Tab RxNorm: 861770 1 Tablet(s) PO QD 08/17/201108/16 Inactive Klor-Con 8 mEq Tab RxNorm: 133499 1 Tablet(s) PO QD 08/17/20112011 Inactive alprazolam 0.5 mg Tab RxNorm: 188038 1 Tablet(s) PO BID 07/20/2011 Inactive prn Ambien 10 mg Tab RxNorm: 220023 1 Tablet(s) PO QHS 07/20/2011 012 Inactive Singulair 10 mg Tab RxNorm: 403721 1 Tablet(s) PO QD 07/20/201107/19 Inactive Premarin 1.25 mg tablet RxNorm: 430446 2 Tablet(s) PO QD 07/20/2011 0 01/21/2019 Inactive Premarin 1.25 mg tablet RxNorm: 530710 1-2 Tablet(s) PO QD 07/20/20 11 12/16/2011 Inactive Premarin 1.25 mg Tab RxNorm: 293878 1-2 Tablet(s) PO QD 07/06/2011 Inactive alprazolam 0.5 mg Tab RxNorm: 397746 1 Tablet(s) PO BID 06/22/2011 Inactive prn alprazolam 0.5 mg Tab RxNorm: 445990 1 Tablet(s) PO BID 06/22/2011 Inactive prn Premarin 1.25 mg Tab RxNorm: 310280 1 Tablet(s) PO QD m ay do 90 day fill if desired 06/22/2011 07/05/2011 Inactive hydrocodone-acetaminophen 10 mg-325 mg Tab RxNorm: 5940727 1-2 T ablet(s) PO TID 06/22/2011 No Stop Date Active as needed for pain - Previous quantity #240, will start dosing for #180 in April 2011 per Doctor Td. clonidine 0.2 mg Tab RxNorm: 530215 1 Tablet(s) PO TID 05/25/201103/2011 Inactive triamterene-hydrochlorothiazide 75 mg-50 mg Tab RxNorm: 3108 18 1 Tablet(s) PO QD 05/25/2011 09/13/2011 Inactive alprazolam 0.5 mg Tab RxNorm: 002844 1 Tablet(s) PO BID 05/25/2011 Inactive prn hydrocodone-acetaminophen 10 mg-325 mg Tab RxNorm: 7761576 1-2 T ablet(s) PO TID 05/25/2011 No Stop Date Active as needed for pain - Previous quantity #240, will start dosing for #180 in April 2011 per Doctor Td. Robaxin-750 750 mg Tab RxNorm: 156974 2 Tablet(s) PO QHS 05/22/2011 1 Inactive prn spasm hydrocodone-acetaminophen 10 mg-325 mg Tab RxNorm: 2287947 1-2 T ablet(s) PO TID 04/26/2011 No Stop Date Active as needed for pain - Previous quantity #240, will start dosing for #180 in April 2011 per Doctor Td. alprazolam 0.5 mg Tab RxNorm: 401104 1 Tablet(s) PO BID 04/25/2011 Inactive prn Klor-Con 8 mEq Tab RxNorm: 379238 1 Tablet(s) PO QD 03/30/20112010 Inactive Klor-Con 8 mEq Tab RxNorm: 069631 1 Tablet(s) PO QD 03/29/20112010 Inactive hydrocodone-acetaminophen 10 mg-325 mg Tab RxNorm: 1919779 1-2 T ablet(s) PO TID 03/20/2011 04/25/2011 Inactive as needed for pain - Previous quantity #240, will start dosing for #180 in April 2011 per Doctor Td. alprazolam 0.5 mg Tab RxNorm: 625576 1 Tablet(s) PO BID prn 011 03/30/2011 Inactive Ambien 10 mg Tab RxNorm: 596136 1 Tablet(s) PO QHS 03/01/2011 011 Inactive cyclobenzaprine 10 mg Tab RxNorm: 989463 1 Tablet(s) PO TID 011 03/18/2012 Inactive cyclobenzaprine 10 mg Tab RxNorm: 205563 1 Tablet(s) PO TID 011 01/08/2011 Inactive cyclobenzaprine 10 mg Tab RxNorm: 684613 1 Tablet(s) PO TID 011 12/20/2010 Inactive terbinafine 250 mg Tab RxNorm: 631574 1 Tablet(s) PO QD 12/12/2010 Inactive triamterene-hydrochlorothiazide 75 mg-50 mg Tab RxNorm: 3108 18 1 Tablet(s) PO QD 12/07/2010 06/04/2011 Inactive Klor-Con 8 8 mEq Tab RxNorm: 511495 1 Tablet(s) PO QD 12/07/201001/08 Inactive Premarin 1.25 mg Tab RxNorm: 911196 2 Tablet(s) PO QD 12/07/201001/08 Inactive clonidine 0.2 mg Tab RxNorm: 804844 1 Tablet(s) PO TID 12/07/2010 Inactive hydrocodone-acetaminophen 7.5 mg-650 mg Tab RxNorm: 817665 1 Ta blet(s) PO Q4H 12/05/2010 01/21/2019 Inactive hydrocodone-acetaminophen 7.5 mg-650 mg Tab RxNorm: 459387 1 Ta blet(s) PO Q4H 10/26/2010 11/14/2010 Inactive hydrocodone-acetaminophen 7.5 mg-650 mg Tab RxNorm: 451278 1 Ta blet(s) PO Q4H 10/13/2010 10/25/2010 Inactive hydrocodone-acetaminophen 7.5 mg-650 mg Tab RxNorm: 168820 1 Ta blet(s) PO Q4H 09/15/2010 09/12/2010 Inactive alprazolam 0.5 mg Tab RxNorm: 993636 1 Tablet(s) PO BID prn 011 09/12/2010 Inactive terbinafine 250 mg Tab RxNorm: 087839 1 Tablet(s) PO QD 09/05/2010 Inactive hydrocodone-acetaminophen 7.5 mg-650 mg Tab RxNorm: 875562 1 Ta blet(s) PO Q4H 08/29/2010 09/17/2010 Inactive alprazolam 0.5 mg Tab RxNorm: 354368 1 Tablet(s) PO BID prn 010 09/27/2010 Inactive alprazolam 0.5 mg Tab RxNorm: 954585 1 Tablet(s) PO BID prn 09/06/2010 Inactive Klor-Con 8 mEq Tab RxNorm: 671058 1 Tablet(s) PO QD 08/08/20102010 Inactive hydrocodone-acetaminophen 7.5 mg-650 mg Tab RxNorm: 286962 1 Ta blet(s) PO Q4H 08/08/2010 08/27/2010 Inactive Ambien 10 mg Tab RxNorm: 914242 1 Tablet(s) PO QHS 08/08/2010 Inactive clonidine 0.2 mg Tab RxNorm: 809566 1 Tablet(s) PO TID 08/08/2010 Inactive Premarin 1.25 mg Tab RxNorm: 583159 2 Tablet(s) PO QD 08/08/201009/12 Inactive Ambien 10 mg Tab RxNorm: 353715 1 Tablet(s) PO QHS 07/18/2010 Inactive alprazolam 0.5 mg Tab RxNorm: 910218 1 Tablet(s) PO BID prn 08/07/2010 Inactive hydrocodone-acetaminophen 7.5 mg-650 mg Tab RxNorm: 195997 1 Ta blet(s) PO Q4H 07/12/2010 07/31/2010 Inactive clonidine 0.2 mg Tab RxNorm: 776382 1 Tablet(s) PO TID 06/20/2010 Inactive terbinafine 250 mg Tab RxNorm: 583315 1 Tablet(s) PO QD 05/24/2010 Inactive Clonidine 0.2 mg Tab RxNorm: 677199 1 Tablet(s) PO TID 05/24/201006/2010 Inactive Ambien 10 mg Tab RxNorm: 713710 1 Tablet(s) PO QHS 05/24/2010 010 Inactive alprazolam 0.5 mg Tab RxNorm: 894726 1 Tablet(s) PO BID 05/24/2010 Inactive Klor-Con 8 mEq Tab RxNorm: 159899 1 Tablet(s) PO QD 05/24/20102009 Inactive alprazolam 0.5 mg Tab RxNorm: 997777 2 Tablet(s) PO QD prn 05/24/20 10 07/17/2010 Inactive triamterene-hydrochlorothiazide 75 mg-50 mg Tab RxNorm: 3108 18 1 Tablet(s) PO QD 05/24/2010 11/19/2010 Inactive Ambien 10 mg Tab RxNorm: 678873 1 Tablet(s) PO QHS 05/23/2010 010 Inactive Alprazolam 0.5 mg Tab RxNorm: 637279 2 Tablet(s) PO QD prn 05/23/20 10 05/23/2010 Inactive Premarin 1.25 mg Tab RxNorm: 670802 2 Tablet(s) PO QD 05/19/201007/12 Inactive Hydrocodone-Acetaminophen 7.5 mg-650 mg Tab RxNorm: 489562 1 Ta blet(s) PO Q4H 05/19/2010 03/20/2011 Inactive Prednisone 20 mg Tab RxNorm: 433332 1 Tablet(s) PO BID 05/17/2010 Inactive Prednisone 20 mg Tab RxNorm: 656325 1 Tablet(s) PO BID 05/06/201001/2010 Inactive Premarin 1.25 mg Tab RxNorm: 591050 Tablet(s) PO 2 M-W-F, and 1 Vo-Gj-Jqz-Sun 05/05/2010 08/02/2010 Inactive Premarin 1.25 mg Tab RxNorm: 471265 Tablet(s) PO 2 M-W-F, and 1 Qr-Eg-Pkv-Sun 05/04/2010 05/04/2010 Inactive Premarin 1.25 mg Tab RxNorm: 958708 Tablet(s) PO 2 M-W-F, and 1 Jh-Uo-Xyu-Sun 05/04/2010 05/03/2010 Inactive Prednisone 20 mg Tab RxNorm: 267937 1 Tablet(s) PO BID 04/27/2010 Inactive Alprazolam 0.5 mg Tab RxNorm: 075870 2 Tablet(s) PO QD prn 04/26/20 10 05/22/2010 Inactive Clindamycin 300 mg Cap RxNorm: 448076 2 Capsule(s) PO TID 04/05/2010 04/18/2010 Inactive Terbinafine 250 mg Tab RxNorm: 431645 1 Tablet(s) PO QD 04/04/2010 Inactive Hydrocodone-Acetaminophen 7.5 mg-650 mg Tab RxNorm: 401483 1 Ta blet(s) PO Q4H 03/30/2010 04/18/2010 Inactive Avelox 400 mg Tab RxNorm: 176597 1 Tablet(s) PO QD 03/09/2010 010 Inactive Hydrocodone-Acetaminophen 7.5 mg-650 mg Tab RxNorm: 490786 1 Ta blet(s) PO Q4H 03/08/2010 03/27/2010 Inactive Alprazolam 0.5 mg Tab RxNorm: 350254 2 Tablet(s) PO QD prn 03/08/20 10 04/25/2010 Inactive Klor-Con 8 mEq Tab RxNorm: 817875 1 Tablet(s) PO QD when takes lasi x 03/07/2010 08/03/2010 Inactive Premarin 1.25 mg Tab RxNorm: 426226 1 Tablet(s) PO QD 03/03/201003/11 Inactive Alprazolam 0.5 mg Tab RxNorm: 929152 1 Tablet(s) PO BID PRN 010 No Stop Date Active triamterene-hydrochlorothiazide 75 mg-50 mg Tab RxNorm: 3108 18 1 Tablet(s) PO QD 02/09/2010 02/03/2011 Inactive Hydrocodone-Acetaminophen 10 mg-750 mg Tab RxNorm: 528245 1 Tablet(s) PO Q4H PRN 02/09/2010 03/20/2011 Inactive Clonidine 0.2 mg Tab RxNorm: 804702 1 Tablet(s) PO TID 01/13/201009/2009 Inactive Alprazolam 0.5 mg Tab RxNorm: 979807 1 Tablet(s) PO BID PRN 010 01/12/2010 Inactive Hydrocodone-Acetaminophen 10 mg-750 mg Tab RxNorm: 511066 1 Tablet(s) PO Q4H PRN 01/13/2010 01/12/2010 Inactive ANGELIQ 1 mg-0.5 mg Tab RxNorm: 8701560 1 Tablet(s) PO QD 12/27/2009 01/23/2010 Inactive Lasix 40 mg Tab RxNorm: 833790 1 Tablet(s) PO QAM 12/14/2009 06/11/20 10 Inactive Vitamin B12 1000mcg Tablet RxNorm: 1 Tablet(s) PO QD No Start Date Active cyclobenzaprine 10 mg tablet RxNorm: 994537 1 Tablet(s) PO TID as needed DO NOT USE WITH BACLOFEN No Start Date Active Vitamin D 5,000 unit Tab RxNorm: 1 Tablet(s) PO QD No Start Date Active vitamin E (dl, acetate) 400 unit Cap RxNorm: 111300 1 Capsule(s ) PO QD No Start Date Active baclofen 10 mg tablet RxNorm: 226735 1 Tablet(s) PO TID as needed for muscle spasm No Start Date Active Benadryl 25 mg Cap RxNorm: 5046338 Capsule(s) PO PRN No Start Date Inactive amitriptyline 100 mg tablet RxNorm: 578864 1 Tablet(s) PO QHS No St art Date 11/27/2016 Inactive Zithromax Z-Dustin 250 mg tablet RxNorm: 818975 Tablet(s) PO as di rected No Start Date 07/22/2013 Inactive Klor-Con 8 mEq tablet,extended release RxNorm: 960538 1 Tablet( s) PO BID No Start Date 07/28/2012 Inactive scopolamine 1.5 mg 72 hr Transderm Patch RxNorm: 445480 Application TD Q72H for motion sickness No Start Date 05/25/2013 Inactive Klonopin 1 mg tablet RxNorm: 131420 1-2 Tablet(s) PO QHS as nee ded for sleep No Start Date 06/20/2015 Inactive Klor-Con M20 mEq tablet,extended release RxNorm: 396068 2 Tablet(s) PO BID to use with lasix No Start Date 11/11/2013 Inactive Bystolic 5 mg tablet RxNorm: 208636 1 Tablet(s) PO QD No Start Date 1 Inactive Bystolic 10 mg tablet RxNorm: 465644 1 Tablet(s) PO BID No Start Da te 07/06/2015 Inactive Premarin 1.25 mg Tab RxNorm: 858281 Tablet(s) PO 2 M-W-F, and 1 Rb-Pn-Aaf-Sun No Start Date 05/03/2010 Inactive baclofen 20 mg tablet RxNorm: 705112 1 Tablet(s) PO TID as needed for muscle spasm No Start Date 07/22/2015 Inactive hydrocodone-acetaminophen 7.5 mg-650 mg Tab RxNorm: 206969 1 Tablet(s) PO Q4H as needed for pain No Start Date 03/20/2011 Inactive albuterol sulfate 1.25 mg/3 mL Neb Solution RxNorm: 663640 1 Unit Dose INH Q4H 2boxes No Start Date 09/06/2015 Inactive Butrans 20 mcg/hour Transderm Patch RxNorm: 161905 1 TD WEEKLY apply to skin weekly after removing previous. No Start Date 07/22/2013 Inactive Medrol (Dustin) 4 mg tablets in a dose pack RxNorm: 866643 Tablet(s) PO As Directed No Start Date 07/30/2016 Inactive hydrocodone-acetaminophen 10 mg-325 mg Tab RxNorm: 4041540 1-2 Tablet(s) PO TID as needed for pain No Start Date 03/19/2011 Inactive Klonopin 1 mg tablet RxNorm: 404315 1 Tablet(s) PO QHS No Start Date 02/28/2016 Inactive honey topical RxNorm: topical No Start Date 06/16/2018 Inactive Clonidine 0.2 mg Tab RxNorm: 903125 1 Tablet(s) PO TID No Start Date 01/12/2010 Inactive ketorolac 10 mg tablet RxNorm: 162931 1 Tablet(s) PO Q8H No Start D ate 03/18/2012 Inactive as needed for headache Singulair 10 mg Tab RxNorm: 822890 1 Tablet(s) PO QD No Start Date Inactive Premarin 1.25 mg Tab RxNorm: 804445 1 Tablet(s) PO QD No Start Date 1 Inactive Flonase 50 mcg/Actuation Nasal [place] RxNorm: 5246240 1 [place] CECELIA AL BID No Start Date 03/18/2012 Inactive Terbinafine 250 mg Tab RxNorm: 227684 1 Tablet(s) PO QD No Start Da te 04/03/2010 Inactive Fexofenadine 180 mg Tab RxNorm: 3259166 1 Tablet(s) PO QD No Start Date 09/06/2015 Inactive baclofen 20 mg tablet RxNorm: 553151 1 Tablet(s) PO TID as needed N o Start Date 05/25/2014 Inactive Diovan 160 mg Tab RxNorm: 626460 1 Tablet(s) PO QD No Start Date 09/12 Inactive mupirocin 2 % topical ointment RxNorm: 052495 1 Application TOP QID No Start Date 04/25/2016 Inactive ZOFRAN ODT 4 mg Tab, Rapid Dissolve RxNorm: 675602 1 Tablet(s) PO Q4H No Start Date 03/18/2012 Inactive as needed for nausea and vomiting Alprazolam 0.5 mg Tab RxNorm: 357377 1 Tablet(s) PO BID PRN No Star t Date 01/12/2010 Inactive cyclobenzaprine 10 mg tablet RxNorm: 588302 1 Tablet(s) PO TID as needed for muscle spasm No Start Date 10/08/2017 Inactive Albuterol 0.083% Aerosol Solution RxNorm: 1 Appl ication INH Q4H Use one ampule every 4 hrs with nebulizer as needed for shortness of breath. No Start Date 10/09/2010 Inactive lorazepam 1 mg tablet RxNorm: 727516 1 1/2 Tablet(s) PO QHS No Star t Date 02/02/2016 Inactive Melatonin 3 mg Tab RxNorm: 933704 Tablet(s) PO PRN No Start Date 07/11 Inactive Medrol (Dustin) 4 mg Tabs in a Dose Pack RxNorm: 217472 Tablet(s) PO N o Start Date 11/28/2010 Inactive lorazepam 1 mg tablet RxNorm: 307984 1 Tablet(s) PO QHS as need ed for sleep No Start Date 01/30/2016 Inactive hydrocodone-acetaminophen 10 mg-325 mg Tab RxNorm: 5875142 1-2 Tablet(s) PO QID as needed for severe pain No Start Date 03/24/2012 Inactive celecoxib 200 mg capsule RxNorm: 268948 1 Capsule(s) PO BID No Star t Date 06/26/2019 Inactive amlodipine 5 mg-benazepril 20 mg capsule RxNorm: 492939 1 Capsu le(s) PO QD No Start Date 04/10/2017 Inactive Bystolic 20 mg tablet RxNorm: 179346 1/2 Tablet(s) PO QAM No Start Date 01/23/2016 Inactive Bystolic 20 mg tablet RxNorm: 877696 1 Tablet(s) PO QAM No Start Da te 04/25/2016 Inactive Ambien 10 mg Tab RxNorm: 344105 1 Tablet(s) PO QHS No Start Date 05/11 Inactive Klor-Con 8 mEq Tab RxNorm: 762006 1 Tablet(s) PO QD when takes lasix No Start Date 03/06/2010 Inactive aspirin 81 mg tablet RxNorm: 467767 1 Tablet(s) PO QD No Start Date 0 01/29/2018 Inactive hydrocodone-acetaminophen 10 mg-325 mg Tab RxNorm: 3258438 1-2 T ablet(s) PO QID No Start Date 01/10/2012 Inactive Bystolic 10 mg tablet RxNorm: 122981 1 Tablet(s) PO QAM take one daily in the morning. No Start Date 05/28/2013 Inactive nystatin 100,000 unit/mL Oral Susp RxNorm: 149304 5 Milliliter( s) PO QID No Start Date 03/18/2012 Inactive swish and spit scopolamine 1.5 mg 72 hr Transderm Patch RxNorm: 619085 1 Unit Dose TD Q72H for motion sickness No Start Date 12/23/2013 Inactive Hydrocodone-Acetaminophen 10 mg-750 mg Tab RxNorm: 119522 1 Tablet(s) PO Q4H PRN No Start Date 01/12/2010 Inactive Soma 350 mg tablet RxNorm: 560693 1 Tablet(s) PO TID as needed for spasm No Start Date 01/12/2013 Inactive Soma 350 mg Tab RxNorm: 627884 1 Tablet(s) PO TID for spasm No Star t Date 01/31/2012 Inactive Co Q-10 400 mg capsule RxNorm: 406023 1 Capsule(s) PO QD No Start D ate 01/21/2019 Inactive nystatin 100,000 unit/gram topical cream RxNorm: 669666 Applica tion TOP BID No Start Date 03/22/2015 Inactive Exforge 5 mg-160 mg Tab RxNorm: 221205 1 Tablet(s) PO QD No Start D ate 10/09/2010 Inactive Hydrocodone-Acetaminophen 7.5 mg-650 mg Tab RxNorm: 736265 1 Ta blet(s) PO Q4H No Start Date 03/07/2010 Inactive Robaxin-750 750 mg Tab RxNorm: 863379 1-2 Tablet(s) PO TID prn spasm No Start Date 05/21/2011 Inactive amlodipine 5 mg tablet RxNorm: 336768 1 Tablet(s) PO QHS No Start D ate 09/29/2015 Inactive oxycodone-acetaminophen 10 mg-325 mg tablet RxNorm: 0420650 1-2 Tablet(s) PO Q6H No Start Date 06/16/2018 Inactive Triamterene-Hydrochlorothiazide 75 mg-50 mg Tab RxNorm: 3108 18 1 Tablet(s) PO QD No Start Date 02/08/2010 Inactive Alprazolam 0.5 mg Tab RxNorm: 219772 2 Tablet(s) PO QD prn No Start Date 03/07/2010 Inactive Bystolic 20 mg tablet RxNorm: 483189 1 Tablet(s) PO QAM No Start Da te 08/17/2015 Inactive ketorolac 10 mg tablet RxNorm: 410172 1 Tablet(s) PO QID prn he adache No Start Date 07/17/2012 Inactive acyclovir 800 mg Tab RxNorm: 662080 1 Tablet(s) PO BID No Start Date 03/18/2012 Inactive duloxetine 60 mg capsule,delayed release RxNorm: 481247 1 Capsu le(s) PO QD No Start Date 09/29/2015 Inactive Norvasc 5 mg tablet RxNorm: 192823 1 Tablet(s) PO QHS No Start Date 1 10/18/2014 Inactive promethazine 25 mg tablet RxNorm: 291422 1 Tablet(s) PO Q8H use sparingly No Start Date 07/22/2013 Inactive alprazolam 0.5 mg tablet RxNorm: 432354 3 Tablet(s) PO QHS No Start Date 06/06/2015 Inactive Lunesta 3 mg tablet RxNorm: 515122 1 Tablet(s) PO QHS No Start Date 0 09/20/2017 Inactive hydrocodone-acetaminophen 10 mg-325 mg Tab RxNorm: 3534267 1-2 Tablet(s) PO TID as needed for pain No Start Date 12/10/2011 Inactive Coricidin HBP Cough & Cold 4 mg-30 mg Tab RxNorm: 1335173 Tablet (s) PO PRN No Start Date 10/09/2010 Inactive Bactroban 2 % Ointment RxNorm: 438450 Application TOP QID to so res No Start Date 02/22/2012 Inactive Flonase 50 mcg/actuation Nasal [place] RxNorm: 104866 2 [place] QHS No Start Date 03/03/2014 Inactive Medication Administered No Medication Administered data Immunizations Vaccine Codes Date Status Tetanus, Diptheria, Pertussis CVX: 115 02/27/2014 Results Observation Observation Code Item Item Code Result Date S [facility] Location COMPLETE BLOOD COUNT [id number] WBC 10.7 10e9/L 018 Unknown COMPLETE BLOOD COUNT [id number] RBC 4.59 10e12/L 2017 Unknown COMPLETE BLOOD COUNT [id number] HEMOGLOBIN 14.8 g/dL 12/11/19 18 Unknown COMPLETE BLOOD COUNT [id number] HEMATOCRIT 44.9 % 12/11/19 18 Unknown COMPLETE BLOOD COUNT [id number] MCV 97.8 fL 8 Unknown COMPLETE BLOOD COUNT 6583631 MCH 32.2 pg 8 Unknown COMPLETE BLOOD COUNT 4897427 MCHC 33.0 g/dL 8 Unknown COMPLETE BLOOD COUNT [id number] PLATELET COUNT 261 10e9/L 10/2017 Unknown COMPLETE BLOOD COUNT [id number] Mean Plt Volume 9.5 fL 10/2017 Unknown COMPLETE BLOOD COUNT 1928338 Neut Auto 59.9 % 8 Unknown COMPLETE BLOOD COUNT [id number] Lymph Auto 27.4 % 12/11/19 18 Unknown COMPLETE BLOOD COUNT [id number] [place] Auto 8.2 % 8 Unknown COMPLETE BLOOD COUNT 6104827 RDW 13.3 % 8 Unknown COMPLETE BLOOD COUNT 7302054 Eos Auto 4.1 % 8 Unknown COMPLETE BLOOD COUNT 0302125 Baso Auto 0.4 % 8 Unknown COMPLETE BLOOD COUNT [id number] Neutrophil Abs 6.41 10e9/L Unknown COMPLETE BLOOD COUNT [id number] Lymphocyte Abs 2.93 10e9/L Unknown COMPLETE BLOOD COUNT [id number] Monocyte Abs 0.88 10e9/L 10/2017 Unknown COMPLETE BLOOD COUNT [id number] Eosinophil Abs 0.44 10e9/L Unknown COMPLETE BLOOD COUNT 5088401 RDW-SD 46.2 fL 8 Unknown COMPLETE BLOOD COUNT [id number] Basophil Abs 0.04 10e9/L 10/2017 Unknown THYROID STIMULATING HORMONE 25191 TSH 4.015 uIU/mL 12/10/2017 Unknown COMPREHENSIVE METABOLIC 10428 AST 25 U/L 2017 Unknown COMPREHENSIVE METABOLIC 13425 ALT 17 U/L 2017 Unknown COMPREHENSIVE METABOLIC 96255 BUN 19 mg/dL 2017 Unknown COMPREHENSIVE METABOLIC 37952 ALBUMIN 4.0 g/dL 2017 Unknown COMPREHENSIVE METABOLIC 54680 CHLORIDE 91 mmol/L 2017 Unknown COMPREHENSIVE METABOLIC 72949 Bili Total 0.5 mg/dL 12/10 Unknown COMPREHENSIVE METABOLIC 01888 ALK PHOS 75 U/L 2017 Unknown COMPREHENSIVE METABOLIC 42080 SODIUM 136 mmol/L 12/10 Unknown COMPREHENSIVE METABOLIC 66540 CREATININE 1.05 mg/dL 10/2017 Unknown COMPREHENSIVE METABOLIC 74079 CALCIUM 8.9 mg/dL 2017 Unknown COMPREHENSIVE METABOLIC 37192 POTASSIUM 3.4 mmol/L 12/10 Unknown COMPREHENSIVE METABOLIC 71864 Total Protein 6.5 g/dL Unknown COMPREHENSIVE METABOLIC 80378 Glucose 138 mg/dL 2017 Unknown COMPREHENSIVE METABOLIC 22860 Bicarbonate 35 mmol/L 10/2017 Unknown COMPREHENSIVE METABOLIC 63062 AGAP 10 mmol/L 2017 Unknown MEAN GLUC 5003588 Calc Mean Gluc 171 mg/dL 12/10/2017 Unkn own LIPID GROUP 06767 Cholesterol 204 mg/dL 12/10/2017 Unkno wn LIPID GROUP 60332 Triglyceride 411 mg/dL 12/10/2017 Unkn own LIPID GROUP 86336 HDL CHOLESTEROL 50 mg/dL 12/10/2017 U nknown LIPID GROUP 93602 Chol/HDL Ratio 4.08 ratio 12/10/2017 U nknown LIPID GROUP 77399 NON-HDL Chol 154 mg/dL 12/10/2017 Unkn own LIPID GROUP 69978 LDL Cholesterol N/A Trig >400 018 Unknown GLYCOSYLATED HEMOGLOBIN TEST 05861 Hgb A1c 51786-1 7.6 % 0 12/10/2017 Unknown FREE T4 84345 T4 Free 1.40 ng/dL 12/10/2017 Unknown GFR CALC 0425767 GFR Non Afr Amr 55 mL/min 12/10/2017 Unk nown GFR CALC 8863141 GFR Afr Amr >60 mL/min 12/10/2017 Unknow n GFR CALC 7502965 GFR Non Afr Amr 48 mL/min 06/28/2017 Unk nown GFR CALC 9533473 GFR Afr Amr 59 mL/min 06/28/2017 Unknown COMPREHENSIVE METABOLIC 42891 AST 32 U/L 2016 Unknown COMPREHENSIVE METABOLIC 94645 ALT 22 U/L 2016 Unknown COMPREHENSIVE METABOLIC 03937 BUN 23 mg/dL 2016 Unknown COMPREHENSIVE METABOLIC 59159 ALBUMIN 4.7 g/dL 2016 Unknown COMPREHENSIVE METABOLIC 34081 CHLORIDE 89 mmol/L 2016 Unknown COMPREHENSIVE METABOLIC 86867 Bili Total 0.5 mg/dL 06/28 Unknown COMPREHENSIVE METABOLIC 20432 ALK PHOS 90 U/L 2016 Unknown COMPREHENSIVE METABOLIC 08006 SODIUM 135 mmol/L 06/28 Unknown COMPREHENSIVE METABOLIC 51903 CREATININE 1.18 mg/dL 06/10 Unknown COMPREHENSIVE METABOLIC 21268 CALCIUM 9.7 mg/dL 2016 Unknown COMPREHENSIVE METABOLIC 18602 POTASSIUM 3.5 mmol/L 06/28 Unknown COMPREHENSIVE METABOLIC 17730 Total Protein 7.7 g/dL Unknown COMPREHENSIVE METABOLIC 86178 Glucose 129 mg/dL 2016 Unknown COMPREHENSIVE METABOLIC 53222 Bicarbonate 34 mmol/L 06/10 Unknown COMPREHENSIVE METABOLIC 65554 AGAP 12 mmol/L 2016 Unknown LIPID GROUP 06182 HDL TEST 64 MG/DL 08/27/2014 Unknown LIPID GROUP 76224 TRIG 222 MG/DL 08/27/2014 Unknown LIPID GROUP 29110 TEST LDL 209 MG/DL 08/27/2014 Unknown LIPID GROUP 03634 CHOL 317 MG/DL 08/27/2014 Unknown LIPID GROUP 13607 RCHOL/HDL 4.95 RATIO 08/27/2014 Unknow n LIPID GROUP 25341 NON-HDL CH 253 MG/DL 08/27/2014 Unknow n GFR CALC 1817038 GFR AA >60 ML/MIN 08/27/2014 Unknown GFR CALC 6466390 GFR NON-AA >60 ML/MIN 08/27/2014 Unknown COMPLETE BLOOD COUNT 2873569 WBC 7.0 10e9/L 08/27/20 14 Unknown COMPLETE BLOOD COUNT [id number] RBC 4.98 10e12/L 2013 Unknown COMPLETE BLOOD COUNT 8339806 HGB 15.6 g/dL 4 Unknown COMPLETE BLOOD COUNT 9911950 HCT DET 46.5 % 4 Unknown COMPLETE BLOOD COUNT 4717340 MCV 93.4 fL 4 Unknown COMPLETE BLOOD COUNT 5793143 MCH 31.3 pg 4 Unknown COMPLETE BLOOD COUNT 1657303 MCHC 33.5 g/dL 4 Unknown COMPLETE BLOOD COUNT [id number] PLT 309 10e9/L 08/27/20 14 Unknown COMPLETE BLOOD COUNT 1704604 MPV 9.6 fL 4 Unknown COMPLETE BLOOD COUNT 7219650 CADEN % 57.2 % 4 Unknown COMPLETE BLOOD COUNT 6034357 LY % 33.2 % 4 Unknown COMPLETE BLOOD COUNT [id number] MON % 7.3 % 4 Unknown COMPLETE BLOOD COUNT [id number] EOS % 2.0 % 4 Unknown COMPLETE BLOOD COUNT 6388501 BASO % 0.3 % 4 Unknown COMPLETE BLOOD COUNT 1695528 RDW 13.7 % 4 Unknown COMPLETE BLOOD COUNT [id number] ABS CADEN 4.00 10e9/L 014 Unknown COMPLETE BLOOD COUNT [id number] ABS LYMPH 2.32 10e9/L 014 Unknown COMPLETE BLOOD COUNT 6207496 ABS MONO 0.51 10e9/L 014 Unknown COMPLETE BLOOD COUNT 1053928 ABS EOS 0.14 10e9/L 014 Unknown COMPLETE BLOOD COUNT 8992272 ABS BASO 0.02 10e9/L 014 Unknown COMPLETE BLOOD COUNT 1803734 RDW-SD 45.1 fL 4 Unknown COMPREHENSIVE METABOLIC 03980 AST 13 U/L 2013 Unknown COMPREHENSIVE METABOLIC 93793 ALT 11 IU/L 2013 Unknown COMPREHENSIVE METABOLIC 70325 BUN 23 MG/DL 2013 Unknown COMPREHENSIVE METABOLIC 02845 ALBUMIN 4.4 GM/DL 2013 Unknown COMPREHENSIVE METABOLIC 93467 CHLORIDE 99 MMOL/L 2013 Unknown COMPREHENSIVE METABOLIC 24668 BILI TOT 0.5 MG/DL 2013 Unknown COMPREHENSIVE METABOLIC 44101 ALK PHOS 56 U/L 2013 Unknown COMPREHENSIVE METABOLIC 69646 SODIUM 138 MMOL/L 08/27 Unknown COMPREHENSIVE METABOLIC 89097 CREATININE 0.95 MG/DL 08/10 Unknown COMPREHENSIVE METABOLIC 55802 CALCIUM 9.8 MG/DL 2013 Unknown COMPREHENSIVE METABOLIC 90647 POTASSIUM 3.5 MMOL/L 08/27 Unknown COMPREHENSIVE METABOLIC 47455 PROT TOT 6.8 GM/DL 2013 Unknown COMPREHENSIVE METABOLIC 28680 Glucose 90 MG/DL 2013 Unknown COMPREHENSIVE METABOLIC 52481 BICARB 34 MMOL/L 2013 Unknown COMPREHENSIVE METABOLIC 90149 ANION GAP 5 MEQ/L 2013 Unknown LIPASE 55344 LIPASE 11 IU/L 07/21/2014 Unknown AMYLASE 70632 AMYLASE 39 IU/L 07/21/2014 Unknown HEMOGLOBIN A1C (GLYCOSYLATED) 1902154 A1C [facility] 59578-2 6.2 % 03/05/2013 Unknown THYROID STIMULATING HORMONE 97073 TSH 6.986 uIU/ML 03/05/2013 Unknown COMPLETE BLOOD COUNT 7307893 WBC 12.7 10e9/L 013 Unknown COMPLETE BLOOD COUNT 7153735 RBC 4.53 10e12/L 2012 Unknown COMPLETE BLOOD COUNT 0965679 HGB 14.7 g/dL 3 Unknown COMPLETE BLOOD COUNT 9832266 HCT DET 43.1 % 3 Unknown COMPLETE BLOOD COUNT 3508296 MCV 95.1 fL 3 Unknown COMPLETE BLOOD COUNT 4151681 MCH 32.5 pg 3 Unknown COMPLETE BLOOD COUNT 3251973 MCHC 34.1 g/dL 3 Unknown COMPLETE BLOOD COUNT 1144049 PLT 346 10e9/L 03/05/20 13 Unknown COMPLETE BLOOD COUNT 0417149 MPV 9.5 fL 3 Unknown COMPLETE BLOOD COUNT 1175043 CADEN % 67.6 % 3 Unknown COMPLETE BLOOD COUNT 0500115 LY % 22.1 % 3 Unknown COMPLETE BLOOD COUNT 7074469 MON % 6.6 % 3 Unknown COMPLETE BLOOD COUNT 3455045 EOS % 3.3 % 3 Unknown COMPLETE BLOOD COUNT 6601213 BASO % 0.4 % 3 Unknown COMPLETE BLOOD COUNT 6827526 RDW 14.0 % 3 Unknown COMPLETE BLOOD COUNT 7575554 ABS CADEN 8.59 10e9/L 013 Unknown COMPLETE BLOOD COUNT 9854519 ABS LYMPH 2.81 10e9/L 013 Unknown COMPLETE BLOOD COUNT 9916174 ABS MONO 0.84 10e9/L 013 Unknown COMPLETE BLOOD COUNT [id number] ABS EOS 0.42 10e9/L 013 Unknown COMPLETE BLOOD COUNT 7252043 ABS BASO 0.05 10e9/L 013 Unknown COMPLETE BLOOD COUNT 2140443 RDW-SD 46.0 fL 3 Unknown FREE T4 55534 FREE T4 1.14 NG/DL 03/05/2013 Unknown COMPREHENSIVE METABOLIC 04672 AST 17 U/L 2012 Unknown COMPREHENSIVE METABOLIC 56103 ALT 12 IU/L 2012 Unknown COMPREHENSIVE METABOLIC 74138 BUN 24 MG/DL 2012 Unknown COMPREHENSIVE METABOLIC 00252 ALBUMIN 4.2 GM/DL 2012 Unknown COMPREHENSIVE METABOLIC 14627 CHLORIDE 93 MMOL/L 2012 Unknown COMPREHENSIVE METABOLIC 39228 BILI TOT 0.5 MG/DL 2012 Unknown COMPREHENSIVE METABOLIC 94860 ALK PHOS 75 U/L 2012 Unknown COMPREHENSIVE METABOLIC 02467 SODIUM 141 MMOL/L 03/05 Unknown COMPREHENSIVE METABOLIC 35952 CREATININE 1.36 MG/DL 02/09 Unknown COMPREHENSIVE METABOLIC 30884 CALCIUM 9.2 MG/DL 2012 Unknown COMPREHENSIVE METABOLIC 05644 POTASSIUM 3.1 MMOL/L 03/05 Unknown COMPREHENSIVE METABOLIC 92927 PROT TOT 6.9 GM/DL 2012 Unknown COMPREHENSIVE METABOLIC 89258 Glucose 123 MG/DL 2012 Unknown COMPREHENSIVE METABOLIC 83614 BICARB 36 MMOL/L 2012 Unknown COMPREHENSIVE METABOLIC 20953 ANION GAP 12 MEQ/L 2012 Unknown GFR CALC 3397318 GFR AA 51.0L ML/MIN 03/05/2013 Unknow n GFR CALC 1601366 GFR NON-AA 42.0L ML/MIN 03/05/2013 Unkno wn COMPREHENSIVE METABOLIC 00059 AST 14 U/L 2012 Unknown COMPREHENSIVE METABOLIC 39513 ALT 11 IU/L 2012 Unknown COMPREHENSIVE METABOLIC 58748 BUN 16 MG/DL 2012 Unknown COMPREHENSIVE METABOLIC 93588 ALBUMIN 4.2 GM/DL 2012 Unknown COMPREHENSIVE METABOLIC 76977 CHLORIDE 98 MMOL/L 2012 Unknown COMPREHENSIVE METABOLIC 72712 BILI TOT 0.4 MG/DL 2012 Unknown COMPREHENSIVE METABOLIC 92874 ALK PHOS 77 U/L 2012 Unknown COMPREHENSIVE METABOLIC 61050 SODIUM 139 MMOL/L 09/25 Unknown COMPREHENSIVE METABOLIC 01547 CREATININE 0.86 MG/DL 09/10 Unknown COMPREHENSIVE METABOLIC 75523 CALCIUM 9.5 MG/DL 2012 Unknown COMPREHENSIVE METABOLIC 78645 POTASSIUM 3.8 MMOL/L 09/25 Unknown COMPREHENSIVE METABOLIC 17262 PROT TOT 6.8 GM/DL 2012 Unknown COMPREHENSIVE METABOLIC 50008 Glucose 91 MG/DL 2012 Unknown COMPREHENSIVE METABOLIC 61294 BICARB 32 MMOL/L 2012 Unknown COMPREHENSIVE METABOLIC 94000 ANION GAP 9 MEQ/L 2012 Unknown FREE T4 49593 FREE T4 0.98 NG/DL 09/25/2012 Unknown THYROID STIMULATING HORMONE 66040 TSH 1.736 uIU/ML 09/25/2012 Unknown C-REACTIVE PROTEIN (CRP) QUANT 64819 CRP 2.3 MG/DL 09/25/2012 Unknown COMPLETE BLOOD COUNT [id number] WBC 11.9 10e9/L 013 Unknown COMPLETE BLOOD COUNT [id number] RBC 4.87 10e12/L 2012 Unknown COMPLETE BLOOD COUNT 6749177 HGB 15.1 g/dL 3 Unknown COMPLETE BLOOD COUNT 5991871 HCT DET 44.8 % 3 Unknown COMPLETE BLOOD COUNT 8732248 MCV 92.0 fL 3 Unknown COMPLETE BLOOD COUNT 3752389 MCH 31.0 pg 3 Unknown COMPLETE BLOOD COUNT 1880101 MCHC 33.7 g/dL 3 Unknown COMPLETE BLOOD COUNT 3481201 PLT 343 10e9/L 09/25/19 13 Unknown COMPLETE BLOOD COUNT 1651866 MPV 9.0 fL 3 Unknown COMPLETE BLOOD COUNT 6095938 CADEN % 68.2 % 3 Unknown COMPLETE BLOOD COUNT 6675591 LY % 22.4 % 3 Unknown COMPLETE BLOOD COUNT 7639192 MON % 6.4 % 3 Unknown COMPLETE BLOOD COUNT 0828301 EOS % 2.7 % 3 Unknown COMPLETE BLOOD COUNT 1553582 BASO % 0.3 % 3 Unknown COMPLETE BLOOD COUNT 0140286 RDW 13.8 % 3 Unknown COMPLETE BLOOD COUNT 8951869 ABS CADEN 8.12 10e9/L 013 Unknown COMPLETE BLOOD COUNT 0254151 ABS LYMPH 2.67 10e9/L 013 Unknown COMPLETE BLOOD COUNT [id number] ABS MONO 0.76 10e9/L 013 Unknown COMPLETE BLOOD COUNT 7005018 ABS EOS 0.32 10e9/L 013 Unknown COMPLETE BLOOD COUNT [id number] ABS BASO 0.04 10e9/L 013 Unknown COMPLETE BLOOD COUNT 8805719 RDW-SD 45.6 fL 3 Unknown GFR CALC 3258247 GFR AA >60 ML/MIN 09/25/2012 Unknown GFR CALC 3946392 GFR NON-AA >60 ML/MIN 09/25/2012 Unknown ERYTHROCYTE SEDIMENTATION RATE 69386 ESR 19 MM/HR 05/06/2012 Unknown VITAMIN B 12 FOLIC ACID 68701|02360 VIT B 12 922 PG/ML 04/11 Unknown VITAMIN B 12 FOLIC ACID 11934|27635 FOLIC ACID 13.6 NG/ML Unknown URIC ACID 36218 URIC ACID 7.8 MG/DL 05/06/2012 Unknown COMPLETE BLOOD COUNT 50315 WBC 11.9 10e9/L 012 Unknown COMPLETE BLOOD COUNT 65322 RBC 5.30 10e12/L 2011 Unknown COMPLETE BLOOD COUNT 52051 HGB 16.6 g/dL 2 Unknown COMPLETE BLOOD COUNT 36503 HCT DET 47.2 % 2 Unknown COMPLETE BLOOD COUNT 04210 MCV 89.1 fL 2 Unknown COMPLETE BLOOD COUNT 12323 MCH 31.3 pg 2 Unknown COMPLETE BLOOD COUNT 79604 MCHC 35.2 g/dL 2 Unknown COMPLETE BLOOD COUNT 44558 PLT 362 10e9/L 05/06/20 12 Unknown COMPLETE BLOOD COUNT 35256 MPV 9.4 fL 2 Unknown COMPLETE BLOOD COUNT 37689 CADEN % 68.2 % 2 Unknown COMPLETE BLOOD COUNT 50108 LY % 22.0 % 2 Unknown COMPLETE BLOOD COUNT 87505 MON % 6.9 % 2 Unknown COMPLETE BLOOD COUNT 81872 EOS % 2.6 % 2 Unknown COMPLETE BLOOD COUNT 53168 BASO % 0.3 % 2 Unknown COMPLETE BLOOD COUNT 02004 RDW 12.8 % 2 Unknown COMPLETE BLOOD COUNT 71708 ABS CADEN 8.12 10e9/L 012 Unknown COMPLETE BLOOD COUNT 76729 ABS LYMPH 2.62 10e9/L 012 Unknown COMPLETE BLOOD COUNT 40878 ABS MONO 0.82 10e9/L 012 Unknown COMPLETE BLOOD COUNT 08419 ABS EOS 0.31 10e9/L 012 Unknown COMPLETE BLOOD COUNT 63596 ABS BASO 0.04 10e9/L 012 Unknown COMPLETE BLOOD COUNT 50938 RDW-SD 41.5 fL 2 Unknown GFR CALC 5680129 GFR AA >60 ML/MIN 05/06/2012 Unknown GFR CALC 5652079 GFR NON-AA 58.0L ML/MIN 05/06/2012 Unkno wn FREE T4 94488 FREE T4 1.15 NG/DL 05/06/2012 Unknown THYROID STIMULATING HORMONE 09966 TSH 1.568 uIU/ML 05/06/2012 Unknown COMPREHENSIVE METABOLIC 42715 AST 20 U/L 2011 Unknown COMPREHENSIVE METABOLIC 93311 ALT 12 IU/L 2011 Unknown COMPREHENSIVE METABOLIC 95283 BUN 20 MG/DL 2011 Unknown COMPREHENSIVE METABOLIC 60502 ALBUMIN 4.5 GM/DL 2011 Unknown COMPREHENSIVE METABOLIC 78257 CHLORIDE 91 MMOL/L 2011 Unknown COMPREHENSIVE METABOLIC 83966 BILI TOT 0.4 MG/DL 2011 Unknown COMPREHENSIVE METABOLIC 03091 ALK PHOS 73 U/L 2011 Unknown COMPREHENSIVE METABOLIC 83962 SODIUM 139 MMOL/L 05/06 Unknown COMPREHENSIVE METABOLIC 24732 CREATININE 1.02 MG/DL 04/11 Unknown COMPREHENSIVE METABOLIC 29264 CALCIUM 9.7 MG/DL 2011 Unknown COMPREHENSIVE METABOLIC 44878 POTASSIUM 3.1 MMOL/L 05/06 Unknown COMPREHENSIVE METABOLIC 72604 PROT TOT 7.3 GM/DL 2011 Unknown COMPREHENSIVE METABOLIC 79625 Glucose 118 MG/DL 2011 Unknown COMPREHENSIVE METABOLIC 13554 BICARB 33 MMOL/L 2011 Unknown COMPREHENSIVE METABOLIC 01398 ANION GAP 15 MEQ/L 2011 Unknown Procedures Procedure Codes Date URINALYSIS NONAUTO W/O SCOPE CPT-4: 77397 09/30/2018 MICROALBUMIN QUANTITATIVE CPT-4: 99053 09/30/2018 CEFTRIAXONE SODIUM INJECTION CPT-4: J0696 06/19/2018 THER/PROPH/DIAG INJ SC/IM CPT-4: 82707 06/19/2018 CEFTRIAXONE SODIUM INJECTION CPT-4: J0696 06/17/2018 THER/PROPH/DIAG INJ SC/IM CPT-4: 82009 06/17/2018 THER/PROPH/DIAG INJ SC/IM CPT-4: 24778 05/16/2018 KETOROLAC TROMETHAMINE INJ CPT-4: J1885 05/16/2018 ONDANSETRON HCL INJECTION CPT-4: J2405 05/16/2018 THER/PROPH/DIAG INJ SC/IM CPT-4: 95716 05/16/2018 ROUTINE VENIPUNCTURE CPT-4: 85093 03/20/2018 COMPREHEN METABOLIC PANEL CPT-4: 06865 03/20/2018 DEXAMETHASONE SODIUM PHOS CPT-4: J1100 02/11/2018 THER/PROPH/DIAG INJ SC/IM CPT-4: 76810 02/11/2018 TRIAMCINOLONE ACET INJ NOS CPT-4: J3301 02/11/2018 CEFTRIAXONE SODIUM INJECTION CPT-4: J0696 02/01/2018 THER/PROPH/DIAG INJ SC/IM CPT-4: 10620 02/01/2018 CEFTRIAXONE SODIUM INJECTION CPT-4: J0696 01/30/2018 THER/PROPH/DIAG INJ SC/IM CPT-4: 76192 01/30/2018 ROUTINE VENIPUNCTURE CPT-4: 55502 12/10/2017 ASSAY OF FREE THYROXINE CPT-4: 27338 12/10/2017 ASSAY THYROID STIM HORMONE CPT-4: 77363 12/10/2017 COMPREHEN METABOLIC PANEL CPT-4: 08531 12/10/2017 COMPLETE CBC W/AUTO DIFF WBC CPT-4: 47380 12/10/2017 LIPID PANEL CPT-4: 43843 12/10/2017 A1C HPLC CPT-4: 42846 12/10/2017 CEFTRIAXONE SODIUM INJECTION CPT-4: J0696 12/10/2017 THER/PROPH/DIAG INJ SC/IM CPT-4: 04435 12/10/2017 CEFTRIAXONE SODIUM INJECTION CPT-4: J0696 12/07/2017 THER/PROPH/DIAG INJ SC/IM CPT-4: 58350 12/07/2017 DEXAMETHASONE SODIUM PHOS CPT-4: J1100 12/07/2017 THER/PROPH/DIAG INJ SC/IM CPT-4: 84263 12/07/2017 CEFTRIAXONE SODIUM INJECTION CPT-4: J0696 10/08/2017 THER/PROPH/DIAG INJ SC/IM CPT-4: 62955 10/08/2017 CEFTRIAXONE SODIUM INJECTION CPT-4: J0696 09/21/2017 THER/PROPH/DIAG INJ SC/IM CPT-4: 40942 09/21/2017 CEFTRIAXONE SODIUM INJECTION CPT-4: J0696 09/20/2017 THER/PROPH/DIAG INJ SC/IM CPT-4: 67405 09/20/2017 REMOVAL OF NAIL PLATE CPT-4: 82593 08/29/2017 THER/PROPH/DIAG INJ SC/IM CPT-4: 67263 08/29/2017 TRIAMCINOLONE ACET INJ NOS CPT-4: J3301 08/29/2017 CEFTRIAXONE SODIUM INJECTION CPT-4: J0696 08/29/2017 THER/PROPH/DIAG INJ SC/IM CPT-4: 20102 08/29/2017 DESTRUCT PREMALG LESION (Cryosurgery) CPT-4: 14738 ROUTINE VENIPUNCTURE CPT-4: 06199 06/27/2017 ASSAY OF FREE THYROXINE CPT-4: 31357 06/27/2017 ASSAY THYROID STIM HORMONE CPT-4: 61642 06/27/2017 COMPREHEN METABOLIC PANEL CPT-4: 09399 06/27/2017 COMPLETE CBC W/AUTO DIFF WBC CPT-4: 82905 06/27/2017 EXC TR-EXT B9+REECE 0.5 CM< CPT-4: 02899 01/24/2017 THER/PROPH/DIAG INJ SC/IM CPT-4: 17916 08/02/2016 DEXAMETHASONE SODIUM PHOS CPT-4: J1100 08/02/2016 DESTRUCT PREMALG LESION (Cryosurgery) CPT-4: 29318 EXC TR-EXT B9+REECE 0.5 CM< CPT-4: 05663 08/01/2016 AEROBIC WOUND CULTURE & STN CPT-4: 80757 07/06/2016 CEFTRIAXONE SODIUM INJECTION CPT-4: J0696 05/25/2016 THER/PROPH/DIAG INJ SC/IM CPT-4: 83601 05/25/2016 THER/PROPH/DIAG INJ SC/IM CPT-4: 99063 04/26/2016 DEXAMETHASONE SODIUM PHOS CPT-4: J1100 04/26/2016 CEFTRIAXONE SODIUM INJECTION CPT-4: J0696 04/26/2016 THER/PROPH/DIAG INJ SC/IM CPT-4: 50422 04/26/2016 THER/PROPH/DIAG INJ SC/IM CPT-4: 43063 02/09/2016 TRIAMCINOLONE ACET INJ NOS CPT-4: J3301 02/09/2016 URINALYSIS NONAUTO W/O SCOPE CPT-4: 13770 01/24/2016 URINE CULTURE/ COLONY COUNT CPT-4: 29265 01/24/2016 THER/PROPH/DIAG INJ SC/IM CPT-4: 40107 12/08/2015 TRIAMCINOLONE ACET INJ NOS CPT-4: J3301 12/08/2015 THER/PROPH/DIAG INJ SC/IM CPT-4: 31974 10/07/2015 TRIAMCINOLONE ACET INJ NOS CPT-4: J3301 10/07/2015 DESTRUCT PREMALG LESION (Cryosurgery) CPT-4: 74703 THER/PROPH/DIAG INJ SC/IM CPT-4: 43860 03/16/2015 METHYLPREDNISOLONE 40 MG INJ CPT-4: J1030 03/16/2015 DESTRUCT PREMALG LESION (Cryosurgery) CPT-4: 66420 THER/PROPH/DIAG INJ SC/IM CPT-4: 05102 09/11/2014 METHYLPREDNISOLONE 40 MG INJ CPT-4: J1030 09/11/2014 TRIAMCINOLONE ACET INJ NOS CPT-4: J3301 09/11/2014 CEFTRIAXONE SODIUM INJECTION CPT-4: J0696 09/11/2014 THER/PROPH/DIAG INJ SC/IM CPT-4: 58278 09/11/2014 ROUTINE VENIPUNCTURE CPT-4: 46369 08/27/2014 COMPREHEN METABOLIC PANEL CPT-4: 72835 08/27/2014 COMPLETE CBC W/AUTO DIFF WBC CPT-4: 16514 08/27/2014 LIPID PANEL CPT-4: 17448 08/27/2014 ROUTINE VENIPUNCTURE CPT-4: 96235 07/21/2014 ASSAY OF AMYLASE CPT-4: 61443 07/21/2014 ASSAY OF LIPASE CPT-4: 45741 07/21/2014 THER/PROPH/DIAG INJ SC/IM CPT-4: 17573 07/15/2014 TRIAMCINOLONE ACET INJ NOS CPT-4: J3301 07/15/2014 ROUTINE VENIPUNCTURE CPT-4: 38894 05/14/2014 ASSAY OF FREE THYROXINE CPT-4: 90416 05/14/2014 ASSAY THYROID STIM HORMONE CPT-4: 55674 05/14/2014 COMPREHEN METABOLIC PANEL CPT-4: 15306 05/14/2014 COMPLETE CBC W/AUTO DIFF WBC CPT-4: 55997 05/14/2014 LIPID PANEL CPT-4: 79394 05/14/2014 CEFTRIAXONE SODIUM INJECTION CPT-4: J0696 04/21/2014 THER/PROPH/DIAG INJ SC/IM CPT-4: 71354 04/21/2014 THER/PROPH/DIAG INJ SC/IM CPT-4: 05873 04/21/2014 TRIAMCINOLONE ACET INJ NOS CPT-4: J3301 04/21/2014 THER/PROPH/DIAG INJ SC/IM CPT-4: 08032 03/04/2014 METHYLPREDNISOLONE 40 MG INJ CPT-4: J1030 03/04/2014 TRIAMCINOLONE ACET INJ NOS CPT-4: J3301 03/04/2014 CEFTRIAXONE SODIUM INJECTION CPT-4: J0696 03/04/2014 THER/PROPH/DIAG INJ SC/IM CPT-4: 53788 03/04/2014 TDAP VACCINE 7 YRS/> IM CPT-4: 74250 02/27/2014 IMMUNIZATION ADMIN CPT-4: 28420 02/27/2014 DESTRUCT PREMALG LESION (Cryosurgery) CPT-4: 84947 DESTRUCT PREMALG LES 2-14 CPT-4: 92630 01/13/2014 THER/PROPH/DIAG INJ SC/IM CPT-4: 81709 10/21/2013 METHYLPREDNISOLONE 40 MG INJ CPT-4: J1030 10/21/2013 TRIAMCINOLONE ACET INJ NOS CPT-4: J3301 10/21/2013 CEFTRIAXONE SODIUM INJECTION CPT-4: J0696 08/27/2013 THER/PROPH/DIAG INJ SC/IM CPT-4: 32490 08/27/2013 THER/PROPH/DIAG INJ SC/IM CPT-4: 24101 08/27/2013 METHYLPREDNISOLONE 40 MG INJ CPT-4: J1030 08/27/2013 TRIAMCINOLONE ACET INJ NOS CPT-4: J3301 08/27/2013 THER/PROPH/DIAG INJ SC/IM CPT-4: 62026 06/23/2013 METHYLPREDNISOLONE 40 MG INJ CPT-4: J1030 06/23/2013 TRIAMCINOLONE ACET INJ NOS CPT-4: J3301 06/23/2013 THER/PROPH/DIAG INJ SC/IM CPT-4: 00841 05/26/2013 METHYLPREDNISOLONE 40 MG INJ CPT-4: J1030 05/26/2013 TRIAMCINOLONE ACET INJ NOS CPT-4: J3301 05/26/2013 ROUTINE VENIPUNCTURE CPT-4: 11129 03/05/2013 ASSAY OF FREE THYROXINE CPT-4: 93762 03/05/2013 ASSAY THYROID STIM HORMONE CPT-4: 72119 03/05/2013 COMPREHEN METABOLIC PANEL CPT-4: 72375 03/05/2013 COMPLETE CBC W/AUTO DIFF WBC CPT-4: 13670 03/05/2013 A1C GLYCOSYLATED HEMOGLOBIN TEST CPT-4: 53067 013 DRAIN/INJECT JOINT/BURSA CPT-4: 89164 12/04/2012 METHYLPREDNISOLONE 40 MG INJ CPT-4: J1030 12/04/2012 TRIAMCINOLONE ACET INJ NOS CPT-4: J3301 12/04/2012 CEFTRIAXONE SODIUM INJECTION CPT-4: J0696 11/21/2012 THER/PROPH/DIAG INJ SC/IM CPT-4: 92756 11/21/2012 THER/PROPH/DIAG INJ SC/IM CPT-4: 11917 10/14/2012 METHYLPREDNISOLONE 40 MG INJ CPT-4: J1030 10/14/2012 TRIAMCINOLONE ACET INJ NOS CPT-4: J3301 10/14/2012 URINALYSIS NONAUTO W/O SCOPE CPT-4: 51958 09/27/2012 ROUTINE VENIPUNCTURE CPT-4: 64731 09/25/2012 ASSAY OF FREE THYROXINE CPT-4: 16542 09/25/2012 ASSAY THYROID STIM HORMONE CPT-4: 24764 09/25/2012 COMPREHEN METABOLIC PANEL CPT-4: 72647 09/25/2012 COMPLETE CBC W/AUTO DIFF WBC CPT-4: 75527 09/25/2012 C-REACTIVE PROTEIN CPT-4: 39324 09/25/2012 THER/PROPH/DIAG INJ SC/IM CPT-4: 18496 08/29/2012 METHYLPREDNISOLONE 40 MG INJ CPT-4: J1030 08/29/2012 TRIAMCINOLONE ACET INJ NOS CPT-4: J3301 08/29/2012 DESTRUCT PREMALG LESION (Cryosurgery) CPT-4: 55395 THER/PROPH/DIAG INJ SC/IM CPT-4: 86235 05/06/2012 METHYLPREDNISOLONE 40 MG INJ CPT-4: J1030 05/06/2012 TRIAMCINOLONE ACET INJ NOS CPT-4: J3301 05/06/2012 VITAMIN B 12 FOLIC ACID CPT-4: 08675|24549 05/06/2012 RBC SED RATE AUTOMATED CPT-4: 25564 05/06/2012 ROUTINE VENIPUNCTURE CPT-4: 25770 05/06/2012 ASSAY OF FREE THYROXINE CPT-4: 19815 05/06/2012 ASSAY THYROID STIM HORMONE CPT-4: 28452 05/06/2012 COMPREHEN METABOLIC PANEL CPT-4: 05036 05/06/2012 COMPLETE CBC W/AUTO DIFF WBC CPT-4: 85910 05/06/2012 ASSAY OF BLOOD/URIC ACID CPT-4: 19042 05/06/2012 THER/PROPH/DIAG INJ SC/IM CPT-4: 85329 03/19/2012 KETOROLAC TROMETHAMINE INJ CPT-4: J1885 03/19/2012 KETOROLAC TROMETHAMINE INJ CPT-4: J1885 01/30/2012 THER/PROPH/DIAG INJ SC/IM CPT-4: 39639 01/30/2012 PROMETHAZINE HCL INJECTION CPT-4: J2550 01/30/2012 THER/PROPH/DIAG INJ SC/IM CPT-4: 07621 01/24/2012 METHYLPREDNISOLONE 40 MG INJ CPT-4: J1030 01/24/2012 TRIAMCINOLONE ACET INJ NOS CPT-4: J3301 01/24/2012 THER/PROPH/DIAG INJ SC/IM CPT-4: 40591 09/13/2011 KETOROLAC TROMETHAMINE INJ CPT-4: J1885 09/13/2011 THER/PROPH/DIAG INJ SC/IM CPT-4: 33227 09/13/2011 PROMETHAZINE HCL INJECTION CPT-4: J2550 09/13/2011 CEFTRIAXONE SODIUM INJECTION CPT-4: J0696 07/20/2011 THER/PROPH/DIAG INJ SC/IM CPT-4: 87460 07/20/2011 THER/PROPH/DIAG INJ SC/IM CPT-4: 98148 07/20/2011 METHYLPREDNISOLONE INJECTION CPT-4: J2930 07/20/2011 URINALYSIS NONAUTO W/O SCOPE CPT-4: 73761 05/09/2011 CEFTRIAXONE SODIUM INJECTION CPT-4: J0696 05/09/2011 THER/PROPH/DIAG INJ SC/IM CPT-4: 52111 05/09/2011 THER/PROPH/DIAG INJ SC/IM CPT-4: 92845 05/09/2011 PROMETHAZINE HCL INJECTION CPT-4: J2550 05/09/2011 HYDRATION IV INFUSION INIT CPT-4: 54304 05/09/2011 DESTRUCT PREMALG LESION (Cryosurgery) CPT-4: 48744 DESTRUCT PREMALG LES 2-14 CPT-4: 80047 07/19/2010 REMOVAL OF SKIN TAGS <W/15 CPT-4: 77445 05/30/2010 THER/PROPH/DIAG INJ SC/IM CPT-4: 28299 04/05/2010 CEFTRIAXONE SODIUM INJECTION CPT-4: J0696 04/05/2010 TRIAMCINOLONE ACET INJ NOS CPT-4: J3301 04/05/2010 METHYLPREDNISOLONE 40 MG INJ CPT-4: J1030 04/05/2010 THER/PROPH/DIAG INJ SC/IM CPT-4: 03228 04/05/2010 TRIAMCINOLONE ACET INJ NOS CPT-4: J3301 03/09/2010 METHYLPREDNISOLONE 40 MG INJ CPT-4: J1030 03/09/2010 THER/PROPH/DIAG INJ SC/IM CPT-4: 89238 03/09/2010 THER/PROPH/DIAG INJ SC/IM CPT-4: 98580 03/09/2010 CEFTRIAXONE SODIUM INJECTION CPT-4: J0696 03/09/2010 Vital Signs Date Vital 05/28/2019 Blood Pressure 1: 126/82 Code: 8480-6 BMI: 35.0 Code: 32686-4 Heart Rate 1: 88 bpm Height: 5'4" [...] 1: 128/90 Code: 8480-6 BMI: 37.2 Code: 65968-7 Heart Rate 1: 84 bpm Height: 5'4" Respiratory Rate: 20 bpm SpO2: 95% Tempera ture: 36.6 (C) / 97.8 (F) Weight: 217 lbs 08/27/2018 Blood Pressure 1: 128/88 Code: 8480-6 BMI: 38.3 Code: 45720-3 Heart Rate 1: 84 bpm Height: 5'4" [...] 1: 119/72 Code: 8480-6 BMI: 37.4 Code: 03555-0 Heart Rate 1: 82 bpm Height: 5'4" Respiratory Rate: 12 bpm SpO2: 94% Tempera ture: 35.2 (C) / 95.4 (F) Weight: 218 lbs 12/18/2017 Blood Pressure 1: 128/86 Code: 8480-6 BMI: 37.8 Code: 36291-5 Heart Rate 1: 84 bpm Height: 5'4" [...] 1: 128/82 Code: 8480-6 BMI: 35.5 Code: 38123-4 Heart Rate 1: 84 bpm Height: 5'4" [...] 1: 128/82 Code: 8480-6 BMI: 30.2 Code: 97875-2 Heart Rate 1: 80 bpm Height: 5'4" [...] 1: 128/86 Code: 8480-6 BMI: 32.8 Code: 98096-5 Heart Rate 1: 66 bpm Height: 5'4" Respiratory Rate: 18 bpm Temperature: 36 .3 (C) / 97.3 (F) Weight: 191 lbs 06/23/2013 Blood Pressure 1: 132/94 Code: 8480-6 BMI: 34.0 Code: 29136-2 Heart Rate 1: 84 bpm Height: 5'4" Respiratory Rate: 20 bpm Temperature: 36 .8 (C) / 98.2 (F) Weight: 198 lbs 05/26/2013 Blood Pressure 1: 114/80 Code: 8480-6 BMI: 35.0 Code: 77633-3 Heart Rate 1: 80 bpm Height: 5'4" Respiratory Rate: 20 bpm Temperature: 36 .4 (C) / 97.6 (F) Weight: 204 lbs 04/16/2013 Blood Pressure 1: 114/82 Code: 8480-6 BMI: 36.7 Code: 20789-6 Heart Rate 1: 84 bpm Height: 5'4" Respiratory Rate: 20 bpm Temperature: 36 .7 (C) / 98.0 (F) Weight: 214 lbs 03/05/2013 Blood Pressure 1: 136/90 Code: 8480-6 BMI: 37.1 Code: 14529-5 Heart Rate 1: 84 bpm Height: 5'4" [...] 1: 168/114 Code: 8480-6 BMI: 36.2 Code: 21669-2 Heart Rate 1: 104 bpm Height: 5'4" Respiratory Rate: 20 bpm Temperature: 36 .8 (C) / 98.2 (F) Weight: 211 lbs 11/22/2012 Blood Pressure 1: 128/90 Code: 8480-6 Heart Rate 1: 88 bpm Respiratory Rate: 20 bpm SpO2: 96% Temperature: 36.8 (C) / 98.2 (F) 11/21/2012 Blood Pressure 1: 146/100 Code: 8480-6 BMI: 35.7 Code: 99810-8 Heart Rate 1: 96 bpm Height: 5'4" [...] 1: 138/100 Code: 8480-6 BMI: 35.7 Code: 27038-4 Heart Rate 1: 96 bpm Height: 5'4" Respiratory Rate: 20 bpm Temperature: 36 .8 (C) / 98.2 (F) Weight: 208 lbs 05/06/2012 Blood Pressure 1: 154/102 Code: 8480-6 BMI: 34.7 Code: 79590-6 Heart Rate 1: 116 bpm Height: 5'4" Respiratory Rate: 20 bpm Temperature: 36 .8 (C) / 98.2 (F) Weight: 202 lbs 04/03/2012 Blood Pressure 1: 134/94 Code: 8480-6 BMI: 34.8 Code: 32949-5 Heart Rate 1: 108 bpm Height: 5'4" Respiratory Rate: 20 bpm Temperature: 36 .8 (C) / 98.2 (F) Weight: 203 lbs 03/19/2012 Blood Pressure 1: 148/106 Code: 8480-6 BMI: 35.0 Code: 80436-8 Heart Rate 1: 100 bpm Height: 5'4" Respiratory Rate: 20 bpm Temperature: 36 .6 (C) / 97.9 (F) Weight: 204 lbs 02/22/2012 Blood Pressure 1: 146/94 Code: 8480-6 He art Rate 1: 88 bpm 02/21/2012 Blood Pressure 1: 172/120 Code: 8480-6 B lood Pressure 2: 152/106 Code: 8480-6 Heart Rate 1: 116 bpm 02/20/2012 Blood Pressure 1: 160/100 Code: 8480-6 BMI: 32.0 Code: 36861-2 Heart Rate 1: 84 bpm Height: 5'7" Temperature: 36.5 (C) / 97.7 (F) Weight: 204 lbs 01/30/2012 Blood Pressure 1: 152/110 Code: 8480-6 BMI: 32.0 Code: 81952-4 Heart Rate 1: 116 bpm Height: 5'7" Respiratory Rate: 20 bpm Temperature: 37 .0 (C) / 98.6 (F) Weight: 204 lbs 01/24/2012 Blood Pressure 1: 146/100 Code: 8480-6 BMI: 32.0 Code: 53623-9 Heart Rate 1: 100 bpm Height: 5'7" Respiratory Rate: 20 bpm Temperature: 36 .7 (C) / 98.0 (F) Weight: 204 lbs 01/10/2012 Blood Pressure 1: 156/94 Code: 8480-6 BMI: 32.6 Code: 41848-5 Heart Rate 1: 72 bpm Height: 5'7" Respiratory Rate: 20 bpm Temperature: 36 .8 (C) / 98.2 (F) Weight: 208 lbs 12/11/2011 Blood Pressure 1: 146/100 Code: 8480-6 Heart Rat e 1: 116 bpm Height: 5'7" Respiratory Rate: 20 bpm Temperature: 36.9 (C) / 98.4 (F) We ight: 11/09/2011 Blood Pressure 1: 148/96 Code: 8480-6 BMI: 32.1 Code: 06613-5 Heart Rate 1: 116 bpm Height: 5'7" Respiratory Rate: 20 bpm Temperature: 36 .7 (C) / 98.0 (F) Weight: 205 lbs 09/13/2011 Blood Pressure 1: 126/88 Code: 8480-6 Heart Rate 1: 88 bpm Height: 5'7" Respiratory Rate: 20 bpm Temperature: 36.9 (C) / 98.4 (F) We ight: 08/31/2011 Blood Pressure 1: 118/82 Code: 8480-6 BMI: 32.0 Code: 71630-8 Heart Rate 1: 80 bpm Height: 5'7" Temperature: 36.4 (C) / 97.6 (F) Weight: 204 lbs 07/06/2011 Blood Pressure 1: 128/86 Code: 8480-6 BMI: 30.9 Code: 78941-8 Heart Rate 1: 92 bpm Height: 5'7" Respiratory Rate: 20 bpm Temperature: 36 .9 (C) / 98.4 (F) Weight: 197 lbs 06/06/2011 Blood Pressure 1: 112/74 Code: 8480-6 BMI: 31.0 Code: 40050-5 Heart Rate 1: 72 bpm Height: 5'7" [...] 1: 128/92 Code: 8480-6 BMI: 33.6 Code: 08749-7 Heart Rate 1: 104 bpm Height: 5'4" [...] Check-up Encounters Encounter Performer Location Codes Date ([id number]) OFFICE/OUTPATIENT VISIT EST Diagnosis: Essential (primary) hypertension[ICD10: I10] Diagnosis: Fall from bed, sequela[ICD10: W06.XXXS] María Elena BRAUNGAEL Fabiola APPIAH DO [facility] CPT-4: 82224 05/28/2019 ([id number]) NURSE/OUTPATIENT VISIT EST Diagnosis: Essential (primary) hypertension[ICD10: I10] María Elena APPIAH DO [facility] CPT-4: 59950 05/19/2019 ([id number]) OFFICE/OUTPATIENT VISIT EST Diagnosis: Essential (primary) hypertension[ICD10: I10] Diagnosis: Type 2 diabetes mellitus with hyperglycemia[ICD10: E11.65] Diagnosis: Intervertebral disc disorders with radiculopathy, 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] Diagnosis: Hormone replacement therapy[ICD10: Z79.890] María Elena ELLISLINE Fabiola APPIAH DO [facility] CPT-4: 35209 01/22/2019 ([id number]) OFFICE/OUTPATIENT VISIT EST Diagnosis: Essential (primary) hypertension[ICD10: I10] Diagnosis: Type 2 diabetes mellitus with hyperglycemia[ICD10: E11.65] María Elena APPIAH [email or web address] [facility] CPT-4: 33373 09/30/2018 ([id number]) OFFICE/OUTPATIENT VISIT EST Diagnosis: Pain in left elbow[ICD10: M25.522] Diagnosis: Acute stress reaction[ICD10: F43.0] Diagnosis: Primary insomnia[ICD10: F51.01] Diagnosis: Abnormal weight gain[ICD10: R63.5] María Elena Seamusdawn MONTEROAPARNACIARRA JEAN Fabiola APPIAH [email or web address] [facility] CPT-4: 34677 08/27/2018 ([id number]) OFFICE/OUTPATIENT VISIT EST Diagnosis: Acute recurrent sinusitis, unspecified[ICD10: J01.91] Diagnosis: Follicular disorder, unspecified[ICD10: L73.9] Diagnosis: Tinea corporis[ICD10: B35.4] María Elenamarcella ELLISLINE Fabiola APPIAH [email or web address] [facility] CPT-4: 50550 08/09/2018 ([id number]) OFFICE/OUTPATIENT VISIT EST Diagnosis: Tinea corporis[ICD10: B35.4] Diagnosis: Anxiety disorder, unspecified[ICD10: F41.9] Diagnosis: Menopausal and female climacteric states[ICD10: N95.1] María Elena APPIAH DO [facility] CPT-4: 70345 07/22/2018 ([id number]) NURSE/OUTPATIENT VISIT EST Diagnosis: Cellulitis of right toe[ICD10: L03.031] María Elena APPIAH DO [facility] CPT-4: 54170 06/19/2018 ([id number]) OFFICE/OUTPATIENT VISIT EST Diagnosis: Cellulitis of right toe[ICD10: L03.031] Kathleen APPIAH DO [facility] CPT-4: 98448 06/17/2018 ([id number]) OFFICE/OUTPATIENT VISIT EST Diagnosis: Migraine without aura, intractable, without status migrainosus[ICD10: G43.019] Diagnosis: Zoster without complications[ICD10: B02.9] Kathleen APPIAH DO [facility] CPT-4: 61723 05/16/2018 ([id number]) OFFICE/OUTPATIENT VISIT EST Diagnosis: Cellulitis of right lower limb[ICD10: L03.115] Kathleen APPIAH DO [facility] CPT-4: 58761 03/20/2018 ([id number]) OFFICE/OUTPATIENT VISIT EST Diagnosis: Cellulitis of right lower limb[ICD10: L03.115] Kathleen APPIAH DO [facility] CPT-4: 28477 03/18/2018 ([id number]) OFFICE/OUTPATIENT VISIT EST Diagnosis: Cellulitis of right lower limb[ICD10: L03.115] Kathleen APPIAH DO [facility] CPT-4: 92798 03/15/2018 ([id number]) OFFICE/OUTPATIENT VISIT EST Diagnosis: Acute sinusitis, unspecified[ICD10: J01.90] Kathleen APPIAH DO [facility] CPT-4: 02601 02/11/2018 ([id number]) NURSE/OUTPATIENT VISIT EST Diagnosis: Otitis media, unspecified, right ear[ICD10: H66.91] María Elena APPIAH [email or web address] [facility] CPT-4: 63845 02/01/2018 ([id number]) OFFICE/OUTPATIENT VISIT EST Diagnosis: Acute suppurative otitis media without spontaneous rupture of ear drum, left ear[ICD10: H66.002] Diagnosis: Abnormal weight gain[ICD10: R63.5] Diagnosis: Intervertebral disc disorders with radiculopathy, 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] Kathleen APPIAH DO [facility] CPT-4: 99 214 01/30/2018 ([id number]) PREV VISIT EST AGE 40-64 Diagnosis: Encounter for general adult medical examination without abnormal findings[ICD10: Z00.00] Diagnosis: Essential (primary) hypertension[ICD10: I10] Diagnosis: Mixed hyperlipidemia[ICD10: E78.2] Diagnosis: Type 2 diabetes mellitus with hyperglycemia[ICD10: E11.65] Diagnosis: 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] María Elena APPIAH [email or web address] [facility] CPT-4: 64169 12/18/2017 ([id number]) OFFICE/OUTPATIENT VISIT EST Diagnosis: Cellulitis of right toe[ICD10: L03.031] Diagnosis: Mixed hyperlipidemia[ICD10: E78.2] Diagnosis: Essential (primary) hypertension[ICD10: I10] Diagnosis: Hyperglycemia, unspecified[ICD10: R73.9] Diagnosis: Nontoxic goiter, 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] María Elena APPIAH [email or web address] [facility] CPT-4: 62261 12/10/2017 ([id number]) OFFICE/OUTPATIENT VISIT EST Diagnosis: Cellulitis of right toe[ICD10: L03.031] Diagnosis: Acute sinusitis, unspecified[ICD10: J01.90] Kathleen APPIAH [email or web address] [facility] CPT-4: 50146 12/07/2017 OFFICE/OUTPATIENT VISIT EST Diagnosis: Acute maxillary sinusitis, unspecified[ICD10: J01.00] Kathleen APPIAH DO [facility] CPT-4: 51150 10/08/2017 ([id number]) OFFICE/OUTPATIENT VISIT EST Diagnosis: Cellulitis of left toe[ICD10: L03.032] María Elena APPIAH [email or web address] [facility] CPT-4: 93575 09/21/2017 ([id number]) OFFICE/OUTPATIENT VISIT EST Diagnosis: Insomnia, unspecified[ICD10: G47.00] Diagnosis: Major depressive disorder, single episode, unspecified[ICD10: F32.9] Diagnosis: Anxiety disorder, unspecified[ICD10: F41.9] Diagnosis: Cellulitis of left toe[ICD10: L03.032] Diagnosis: Snoring[ICD10: R06.83] Kathleen APPIAH DO [facility] CPT-4: 72998 09/20/2017 ([id number]) OFFICE/OUTPATIENT VISIT EST Diagnosis: Cellulitis of left toe[ICD10: L03.032] María Elena Waymindivictorino ORTA [email or web address] [facility] CPT-4: 37650 07/19/2017 OFFICE/OUTPATIENT VISIT EST Diagnosis: Chronic sinusitis, unspecified[ICD10: J32.9] Diagnosis: Generalized hyperhidrosis[ICD10: R61] Kathleen APPIAH [email or web address] [facility] CPT-4: 35904 06/27/2017 ([id number]) OFFICE/OUTPATIENT VISIT EST Diagnosis: Intervertebral disc disorders with radiculopathy, 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] Diagnosis: Primary insomnia[ICD10: F51.01] Diagnosis: Other fatigue[ICD10: R53.83] María Elena JUARES AlanJj MARIVEL [email or web address] [facility] CPT-4: 93885 04/10/2017 ([id number]) OFFICE/OUTPATIENT VISIT EST Diagnosis: Primary insomnia[ICD10: F51.01] Diagnosis: Localized edema[ICD10: R60.0] Diagnosis: 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] María Elena JUARES AlanJj [facility] CPT-4: 42846 12/13/2016 ([id number]) OFFICE/OUTPATIENT VISIT EST Diagnosis: Primary insomnia[ICD10: F51.01] Diagnosis: Cyanosis[ICD10: R23.0] María Elena JUARES AlanJj SEAMUSGALINA [email or web address] [facility] CPT-4: 90939 11/01/2016 ([id number]) PREV VISIT EST AGE 40-64 Diagnosis: Encounter for gynecological examination (general) (routine) without abnormal findings[ICD10: Z01.419] Diagnosis: Encounter for routine child health examination without abnormal findings[ICD10: Z00.129] María Elena APPIAH DO [employer] CPT-4: 27598 10/17/2016 ([id number]) OFFICE/OUTPATIENT VISIT EST Diagnosis: Other seasonal allergic rhinitis[ICD10: J30.2] María Elena APPIAH DO [employer] CPT-4: 07745 10/10/2016 ([id number]) OFFICE/OUTPATIENT VISIT EST Diagnosis: Pain in left arm[ICD10: M79.602] Diagnosis: Contact with and (suspected) exposure to potentially hazardous body fluids[ICD10: Z77.21] Diagnosis: 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, 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] Diagnosis: Unspecified open wound, right foot, sequela[ICD10: S91.301S] María Elena APPIAH DO [employer] CPT-4: 14455 09/19/2016 ([id number]) OFFICE/OUTPATIENT VISIT EST Diagnosis: Chronic sinusitis, unspecified[ICD10: J32.9] Diagnosis: Allergic rhinitis due to pollen[ICD10: J30.1] María Elena APPIAH [employer] CPT-4: 58145 08/24/2016 ([id number]) OFFICE/OUTPATIENT VISIT EST Diagnosis: Acute bronchitis, unspecified[ICD10: J20.9] María Elena APPIAH DO [employer] CPT-4: 92815 08/16/2016 ([id number]) OFFICE/OUTPATIENT VISIT EST Diagnosis: Otitis media, unspecified, right ear[ICD10: H66.91] Diagnosis: Acute bronchitis, unspecified[ICD10: J20.9] María Elena APPIAH DO [employer] CPT-4: 64621 08/10/2016 ([id number]) OFFICE/OUTPATIENT VISIT EST Diagnosis: Acute recurrent sinusitis, unspecified[ICD10: J01.91] Diagnosis: Allergic rhinitis due to pollen[ICD10: J30.1] María Elena APPIAH DO [facility] CPT-4: 39379 08/02/2016 ([id number]) OFFICE/OUTPATIENT VISIT EST Diagnosis: Pain in unspecified joint[ICD10: M25.50] María Elena APPIAH DO [facility] CPT-4: 97660 07/27/2016 OFFICE/OUTPATIENT VISIT EST Diagnosis: 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] Diagnosis: Acute recurrent sinusitis, unspecified[ICD10: J01.91] Diagnosis: Other fatigue[ICD10: R53.83] Diagnosis: Primary insomnia[ICD10: F51.01] Diagnosis: Pain in unspecified joint[ICD10: M25.50] María Elena APPIAH DO [facility] CPT-4: 53663 07/20/2016 ([id number]) OFFICE/OUTPATIENT VISIT EST Diagnosis: Blister (nonthermal), left great toe, initial encounter[ICD10: S90.422A] Loan APPIAH [email or web address] [facility] CPT-4: 31987 ([id number]) OFFICE/OUTPATIENT VISIT EST Diagnosis: Acute recurrent sinusitis, unspecified[ICD10: J01.91] María Elena APPIAH DO [facility] CPT-4: 70518 05/25/2016 ([id number]) OFFICE/OUTPATIENT VISIT EST Diagnosis: Acute sinusitis, unspecified[ICD10: J01.90] María Elena APPIAH DO [facility] CPT-4: 85942 04/26/2016 ([id number]) OFFICE/OUTPATIENT VISIT EST Diagnosis: Flushing[ICD10: R23.2] Diagnosis: Primary insomnia[ICD10: F51.01] María Elena APPIAH DO [facility] CPT-4: 12590 03/02/2016 ([id number]) OFFICE/OUTPATIENT VISIT EST Diagnosis: Other seasonal allergic rhinitis[ICD10: J30.2] Loan APPIAH DO [facility] CPT-4: 24567 02/09/2016 ([id number]) OFFICE/OUTPATIENT VISIT EST Diagnosis: Primary insomnia[ICD10: F51.01] Diagnosis: Urinary tract infection, site not specified[ICD10: N39.0] María Elena APPIAH [facility] CPT-4: 48732 01/24/2016 ([id number]) OFFICE/OUTPATIENT VISIT EST Diagnosis: Other specified disorders of Eustachian tube, bilateral[ICD10: H69.83] Diagnosis: Allergic rhinitis, unspecified[ICD10: J30.9] Loan APPIAH [facility] CPT-4: 50627 12/23/2015 ([id number]) OFFICE/OUTPATIENT VISIT EST Diagnosis: Acute recurrent sinusitis, unspecified[ICD10: J01.91] Diagnosis: 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] Diagnosis: Allergic rhinitis, unspecified[ICD10: J30.9] María Elena APPIAH [facility] CPT-4: 07818 12/08/2015 ([id number]) OFFICE/OUTPATIENT VISIT EST Diagnosis: Allergic rhinitis, unspecified[ICD10: J30.9] Diagnosis: Pain in unspecified joint[ICD10: M25.50] María Elena APPIAH [facility] CPT-4: 60577 10/07/2015 ([id number]) OFFICE/OUTPATIENT VISIT EST Diagnosis: Essential (primary) hypertension[ICD10: I10] María Elena APPIAH [facility] CPT-4: 49122 10/06/2015 OFFICE/OUTPATIENT VISIT EST Diagnosis: Localized enlarged lymph nodes[ICD10: R59.0] Diagnosis: Local infection of the skin and subcutaneous tissue, unspecified[ICD10: L08.9] June Flores MARÍA ELENA APPAIH [facility] CPT- 4: 42030 09/14/2015 ([id number]) OFFICE/OUTPATIENT VISIT EST Diagnosis: Essential (primary) hypertension[ICD10: I10] Diagnosis: Actinic keratosis[ICD10: L57.0] María Elena APPIAH [facility] CPT-4: 12580 09/07/2015 ([id number]) OFFICE/OUTPATIENT VISIT EST Diagnosis: Essential (primary) hypertension[ICD10: I10] Diagnosis: Acute stress reaction[ICD10: F43.0] María Elena APPIAH DO [facility] CPT-4: 51611 08/18/2015 ([id number]) OFFICE/OUTPATIENT VISIT EST Diagnosis: Essential (primary) hypertension[ICD10: I10] María Elena APPIAH DO [facility] CPT-4: 39193 07/07/2015 ([id number]) OFFICE/OUTPATIENT VISIT EST Diagnosis: Essential (primary) hypertension[ICD10: I10] María Elena APPIAH DO [facility] CPT-4: 38640 06/24/2015 ([id number]) OFFICE/OUTPATIENT VISIT EST Diagnosis: Essential (primary) hypertension[ICD10: I10] María Elena APPIAH DO [facility] CPT-4: 59854 06/21/2015 ([id number]) OFFICE/OUTPATIENT VISIT EST Diagnosis: Essential (primary) hypertension[ICD10: I10] Diagnosis: Mixed hyperlipidemia[ICD10: E78.2] Diagnosis: Acute stress reaction[ICD10: F43.0] Diagnosis: Primary insomnia[ICD10: F51.01] María Elena APPIAH DO [facility] CPT-4: 17981 06/16/2015 ([id number]) OFFICE/OUTPATIENT VISIT EST Diagnosis: INSOMNIA NOS[ICD9: 780.52] Diagnosis: HYPERTENSION[ICD9: 401.9] Diagnosis: Stress reaction[ICD9: 308.9] María Elena APPIAH DO [facility] CPT-4: 89010 06/02/2015 ([id number]) OFFICE/OUTPATIENT VISIT EST Diagnosis: HYPERTENSION[ICD9: 401.9] Diagnosis: Stress reaction[ICD9: 308.9] María Elena APPIAH DO [facility] CPT-4: 15508 05/20/2015 ([id number]) OFFICE/OUTPATIENT VISIT EST Diagnosis: Skin lesion[ICD9: 709.9] 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] María Elena APPIAH DO [facility] CPT-4: 46677 05/10/2015 ([id number]) OFFICE/OUTPATIENT VISIT EST Diagnosis: SINUSITIS, ACUTE[ICD9: 461.9] Diagnosis: ALLERGIC RHINITIS[ICD9: 477.9] Diagnosis: DERMATITIS NOS[ICD9: 692.9] María Elena REHMAN [facility] CPT-4: 44072 03/16/2015 OFFICE/OUTPATIENT VISIT EST Diagnosis: Otitis media[ICD9: 382.9] Diagnosis: SINUSITIS, ACUTE[ICD9: 461.9] June APPIAH [facility] CPT-4: 01760 09/11/2014 ([id number]) OFFICE/OUTPATIENT VISIT EST Diagnosis: HYPERLIPIDEMIA NEC/NOS[ICD9: 272.4] María Elena APPIAH DO [facility] CPT-4: 53068 08/31/2014 ([id number]) OFFICE/OUTPATIENT VISIT EST Diagnosis: - I - HYPERTENSION[ICD9: 401.9] Diagnosis: HYPERLIPIDEMIA NEC/NOS[ICD9: 272.4] María Elena APPIAH [facility] CPT-4: 91337 08/27/2014 ([id number]) OFFICE/OUTPATIENT VISIT EST Diagnosis: ABDOMINAL PAIN[ICD9: 789.00] Diagnosis: DYSPEPSIA[ICD9: 536.8] Diagnosis: Thoracic back pain[ICD9: 724.1] María Elena APPIAH [facility] CPT-4: 81860 07/21/2014 ([id number]) OFFICE/OUTPATIENT VISIT EST Diagnosis: ALLERGIC RHINITIS[ICD9: 477.9] María Elena APPIAH DO [facility] CPT-4: 66708 07/15/2014 ([id number]) OFFICE/OUTPATIENT VISIT EST Diagnosis: EDEMA[ICD9: 782.3] Diagnosis: Chronic insomnia[ICD9: 780.52] María Elena APPIAH DO [facility] CPT-4: 79905 05/18/2014 ([id number]) OFFICE/OUTPATIENT VISIT EST Diagnosis: Thyromegaly[ICD9: 240.9] Diagnosis: - I - HYPERTENSION[ICD9: 401.9] Diagnosis: ROUTINE MEDICAL EXAM[ICD9: V70.0] Diagnosis: EDEMA[ICD9: 782.3] María Elena APPIAH [facility] CPT-4: 95072 05/14/2014 OFFICE/OUTPATIENT VISIT EST Diagnosis: BRONCHITIS, ACUTE[ICD9: 466.0] Diagnosis: SINUSITIS, ACUTE[ICD9: 461.9] María Elena APPIAH [facility] CPT-4: 34335 04/21/2014 OFFICE/OUTPATIENT VISIT EST Diagnosis: SINUSITIS, ACUTE[ICD9: 461.9] June Gabriellafatimah APPIAH [facility] CPT-4: 62475 03/04/2014 ([id number]) OFFICE/OUTPATIENT VISIT EST Diagnosis: VACCINE FOR TDAP[ICD10: Z23] María Elena [facility] CPT-4: 55811 02/27/2014 ([id number]) OFFICE/OUTPATIENT VISIT EST Diagnosis: Seborrheic keratoses, inflamed[ICD9: 702.11] Diagnosis: ACTINIC KERATOSIS[ICD9: 702.0] Diagnosis: INSOMNIA NOS[ICD9: 780.52] María Elena PANDYA [facility] CPT-4: 41003 01/13/2014 OFFICE/OUTPATIENT VISIT EST Diagnosis: EUSTACHIAN TUBE DYSFUNCTION[ICD9: 381.81] Diagnosis: ALLERGIC RHINITIS[ICD9: 477.9] Diagnosis: Serous otitis media[ICD9: 381.4] María Elena [facility] CPT-4: 37870 12/24/2013 ([id number]) OFFICE/OUTPATIENT VISIT EST Diagnosis: SINUSITIS, ACUTE[ICD9: 461.9] Diagnosis: ALLERGIC RHINITIS[ICD9: 477.9] Diagnosis: EUSTACHIAN TUBE DYSFUNCTION[ICD9: 381.81] María Elena [facility] CPT-4: 51177 11/12/2013 ([id number]) OFFICE/OUTPATIENT VISIT EST Diagnosis: ALLERGIC RHINITIS[ICD9: 477.9] Diagnosis: SINUSITIS, ACUTE[ICD9: 461.9] María Elena [facility] CPT-4: 91648 10/21/2013 ([id number]) OFFICE/OUTPATIENT VISIT EST Diagnosis: ASYMPTOMATIC VARICOSE VEINS[ICD9: 454.9] Diagnosis: INSOMNIA NOS[ICD9: 780.52] María Elena [facility] CPT-4: 98528 09/22/2013 OFFICE/OUTPATIENT VISIT EST Diagnosis: SINUSITIS, ACUTE[ICD9: 461.9] June Sandra [facility] CPT-4: 42169 08/27/2013 ([id number]) OFFICE/OUTPATIENT VISIT EST Diagnosis: CEPHALGIA[ICD9: 784.0] Diagnosis: CEPHALGIA, TENSION[ICD9: 307.81] 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] María Elena [facility] CPT-4: 01921 08/04/2013 ([id number]) OFFICE/OUTPATIENT VISIT EST Diagnosis: Cervicalgia[ICD9: 723.1] Diagnosis: SPASM OF MUSCLE[ICD9: 728.85] Diagnosis: CEPHALGIA, TENSION[ICD9: 307.81] María Elena [facility] CPT-4: 88756 07/23/2013 ([id number]) OFFICE/OUTPATIENT VISIT EST 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] Diagnosis: ALLERGIC RHINITIS[ICD9: 477.9] María Elena [facility] CPT-4: 89196 06/23/2013 ([id number]) OFFICE/OUTPATIENT VISIT EST Diagnosis: ALLERGIC RHINITIS[ICD9: 477.9] Diagnosis: ACUTE SEROUS OTITIS MEDIA[ICD9: 381.01] 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] María Elena [facility] CPT-4: 25531 05/26/2013 ([id number]) OFFICE/OUTPATIENT VISIT EST Diagnosis: HYPERTENSION[ICD9: 401.9] Diagnosis: EDEMA[ICD9: 782.3] Diagnosis: Serous otitis media[ICD9: 381.4] María Elena [facility] CPT-4: 82018 04/16/2013 ([id number]) OFFICE/OUTPATIENT VISIT EST Diagnosis: SINUSITIS, ACUTE[ICD9: 461.9] Diagnosis: ALLERGIC RHINITIS[ICD9: 477.9] Diagnosis: EDEMA[ICD9: 782.3] Diagnosis: Thyromegaly[ICD9: 240.9] Diagnosis: MALAISE AND FATIGUE[ICD9: 780.79] María Elena Lopez Fabiola [facility] CPT-4: 79233 03/05/2013 ([id number]) OFFICE/OUTPATIENT VISIT EST Diagnosis: PAIN, LOWER BACK[ICD9: 724.2] Diagnosis: SPASM OF MUSCLE[ICD9: 728.85] María Elena JUARES AlanJj [facility] CPT-4: 25576 12/23/2012 OFFICE/OUTPATIENT VISIT EST Diagnosis: Low back pain[ICD9: 724.2] Lashawn Hicks KRISTYN [facility] CPT-4: 72097 12/16/2012 ([id number]) OFFICE/OUTPATIENT VISIT EST Diagnosis: PAIN, LOWER BACK[ICD9: 724.2] Diagnosis: SCIATICA[ICD9: 724.3] Diagnosis: Lumbar herniated disc[ICD9: 722.10] María Elena COLON AlanJj [facility] CPT-4: 57786 12/09/2012 ([id number]) OFFICE/OUTPATIENT VISIT EST Diagnosis: PAIN, LOWER BACK[ICD9: 724.2] Diagnosis: SCIATICA[ICD9: 724.3] Diagnosis: LUMBAR DISC DISPLACEMENT[ICD9: 722.10] María Elena MARIN AlanJj [facility] CPT-4: 76112 12/04/2012 OFFICE/OUTPATIENT VISIT EST Diagnosis: Pneumonia[ICD9: 486] Mary JUARES AlanJj [facility] CPT-4: 18106 11/22/2012 ([id number]) OFFICE/OUTPATIENT VISIT EST Diagnosis: PNEUMONIA, ORGANISM[ICD9: 486] Diagnosis: Exacerbation of RAD (reactive airway disease)[ICD9: 493.92] María Elenamarcella APPIAH DO [facility] CPT-4: 55912 11/21/2012 OFFICE/OUTPATIENT VISIT EST Diagnosis: HYPERTENSION[ICD9: 401.9] Diagnosis: Cephalgia[ICD9: 784.0] Lashawn APPIAH DO [facility] CPT-4: 78874 10/29/2012 ([id number]) OFFICE/OUTPATIENT VISIT EST Diagnosis: MALAISE AND FATIGUE[ICD9: 780.79] Diagnosis: ARTHRALGIA-MULTIPLE SITES[ICD9: 719.49] María Elena APPIAH DO [facility] CPT-4: 40446 10/14/2012 ([id number]) OFFICE/OUTPATIENT VISIT EST Diagnosis: URINARY FREQUENCY[ICD9: 788.41] María Elena APPIAH DO [facility] CPT-4: 18655 09/27/2012 ([id number]) OFFICE/OUTPATIENT VISIT EST Diagnosis: MALAISE AND FATIGUE[ICD9: 780.79] Diagnosis: ARTHRALGIA-MULTIPLE SITES[ICD9: 719.49] María Elena APPIAH DO [facility] CPT-4: 03601 09/25/2012 ([id number]) OFFICE/OUTPATIENT VISIT EST Diagnosis: SINUSITIS, ACUTE[ICD9: 461.9] Diagnosis: EUSTACHIAN TUBE DYSFUNCTION[ICD9: 381.81] María Elena APPIAH DO [facility] CPT-4: 79103 08/29/2012 OFFICE/OUTPATIENT VISIT EST Diagnosis: ACTINIC KERATOSIS[ICD9: 702.0] Diagnosis: Inflamed seborrheic keratosis[ICD9: 702.11] Diagnosis: Skin cancer of face[ICD9: 173.31] Diagnosis: HYPERTENSION[ICD9: 401.9] María Elena Waymindivictorino ValdesJj SEAMUS SE[facility]OUR DO [facility] CPT-4: 19542 08/12/2012 ([id number]) OFFICE/OUTPATIENT VISIT EST Diagnosis: ARTHRALGIA-MULTIPLE SITES[ICD9: 719.49] Diagnosis: GOUT[ICD9: 274.9] Diagnosis: HYPERTENSION[ICD9: 401.9] Diagnosis: Tachycardia[ICD9: 785.0] María Elenagael MONTEROQUELINE AlanJj FRITZ REDDY [facility] CPT-4: 81584 05/06/2012 ([id number]) OFFICE/OUTPATIENT VISIT EST Diagnosis: INSOMNIA NOS[ICD9: 780.52] María Elena Seamusdawn JUARES AlanJj KRISTYN PANDYA [facility] CPT-4: 15943 04/03/2012 ([id number]) OFFICE/OUTPATIENT VISIT EST Diagnosis: INSOMNIA NOS[ICD9: 780.52] Diagnosis: HYPERTENSION[ICD9: 401.9] Diagnosis: MIGRAINE NOS/NOT INTRCBL[ICD9: 346.90] María Elena MARIN AlanJj TD [facility] CPT-4: 78467 03/19/2012 ([id number]) OFFICE/OUTPATIENT VISIT EST Diagnosis: CELLULITIS[ICD9: 682.9] Diagnosis: Ankle pain[ICD9: 719.47] Diagnosis: HYPERTENSION[ICD9: 401.9] María Elena Seamusdawn JUARES AlanJj SEAMUS MOJICARose Mary [facility] CPT-4: 01692 02/20/2012 ([id number]) OFFICE/OUTPATIENT VISIT EST Diagnosis: MIGRAINE NOS/NOT INTRCBL[ICD9: 346.90] Diagnosis: Vomiting[ICD9: 787.03] María Elenamarcella JUARES AlanJj SEAMUSGALINA Rose Mary [facility] CPT-4: 33319 01/30/2012 ([id number]) OFFICE/OUTPATIENT VISIT EST Diagnosis: EDEMA[ICD9: 782.3] Diagnosis: HYPERTENSION[ICD9: 401.9] Diagnosis: ALLERGIC RHINITIS[ICD9: 477.9] Diagnosis: ARTHRALGIA-MULTIPLE SITES[ICD9: 719.49] María Elena REED AlanJj SEAMUSMINDIVICTORINO [facility] CPT-4: 81694 01/24/2012 ([id number]) OFFICE/OUTPATIENT VISIT EST Diagnosis: SPASM OF MUSCLE[ICD9: 728.85] Diagnosis: Thoracic back pain[ICD9: 724.1] Diagnosis: Cervical pain[ICD9: 723.1] María Elena Hicks KRISTYN PANDYA [facility] CPT-4: 82714 01/10/2012 OFFICE/OUTPATIENT VISIT EST Diagnosis: PAIN, LOWER BACK[ICD9: 724.2] Diagnosis: LUMBAR DISC DISPLACEMENT[ICD9: 722.10] María Elena MARIN AlanJj [facility] CPT-4: 41161 12/11/2011 OFFICE/OUTPATIENT VISIT EST Diagnosis: MIGRAINE NOS/NOT INTRCBL[ICD9: 346.90] Diagnosis: SINUSITIS, ACUTE[ICD9: 461.9] María Elena MONTEROQUELINE AlanJj TD [facility] CPT-4: 54464 11/09/2011 OFFICE/OUTPATIENT VISIT EST Diagnosis: MIGRAINE NOS/NOT INTRCBL[ICD9: 346.90] Diagnosis: LYMPHADENOPATHY[ICD9: 785.6] María Elena ELLISLINE AlanJj TD [facility] CPT-4: 31638 09/13/2011 OFFICE/OUTPATIENT VISIT EST Diagnosis: MALAISE AND FATIGUE[ICD9: 780.79] Diagnosis: ARTHRALGIA-MULTIPLE SITES[ICD9: 719.49] María Elena Seamusdawn MONTERO APANRAGAEL AlanJj MARIVELVICTORINO [facility] CPT-4: 87958 08/31/2011 OFFICE/OUTPATIENT VISIT EST Diagnosis: SINUSITIS, ACUTE[ICD9: 461.9] María Elena Oredawn JUARES AlanJj [facility] CPT-4: 27385 07/20/2011 OFFICE/OUTPATIENT VISIT EST Diagnosis: HYPERTENSION[ICD9: 401.9] Diagnosis: PAIN, LOWER BACK[ICD9: 724.2] Diagnosis: SPASM OF MUSCLE[ICD9: 728.85] María Elena Appiah MARÍA ELENA AlanJj TD [facility] CPT-4: 75969 07/06/2011 OFFICE/OUTPATIENT VISIT EST Diagnosis: MIGRAINE NOS/NOT INTRCBL[ICD9: 346.90] Diagnosis: HYPERTENSION[ICD9: 401.9] María Elena Seamusdawn Hicks SEAMUS DAWN [facility] CPT-4: 35833 05/22/2011 OFFICE/OUTPATIENT VISIT EST Diagnosis: SINUSITIS, ACUTE[ICD9: 461.9] Diagnosis: MIGRAINE NOS/NOT INTRCBL[ICD9: 346.90] Diagnosis: Dehydration[ICD9: 276.51] Diagnosis: Vomiting[ICD9: 787.03] María Elena Hicks SEAMUSGALINA [facility] CPT-4: 58421 05/09/2011 ([id number]) OFFICE/OUTPATIENT VISIT EST María Elena Orender [facility] CPT-4: 82213 02/14/2011 ([id number]) OFFICE/OUTPATIENT VISIT EST María Elena Ortaer [facility] CPT-4: 47995 02/03/2011 ([id number]) OFFICE/OUTPATIENT VISIT EST María Elenamarcella Ortaer [facility] CPT-4: 91377 01/31/2011 ([id number]) OFFICE/OUTPATIENT VISIT EST María Elenamarcella Ortaer [facility] CPT-4: 12502 01/25/2011 ([id number]) OFFICE/OUTPATIENT VISIT EST María Elenamarcella Ortaer [facility] CPT-4: 93492 01/18/2011 ([id number]) OFFICE/OUTPATIENT VISIT EST María Elena Ortaer [facility] CPT-4: 70579 11/29/2010 ([id number]) OFFICE/OUTPATIENT VISIT, EST María Elena Ortaer [facility] CPT-4: 82055 10/10/2010 ([id number]) OFFICE/OUTPATIENT VISIT, EST María Elenamarcella Ortaer [facility] CPT-4: 46927 06/07/2010 ([id number]) OFFICE/OUTPATIENT VISIT, EST María Elena Ortaer [facility] CPT-4: 54665 04/27/2010 ([id number]) OFFICE/OUTPATIENT VISIT, EST María Elena MONTERO [facility] CPT-4: 52043 04/05/2010 ([id number]) OFFICE/OUTPATIENT VISIT, EST María Elenamarcella Ortaer [facility] CPT-4: 71048 03/09/2010 ([id number]) OFFICE/OUTPATIENT VISIT, EST María Elenamarcella Ortaer [facility] CPT-4: 18609 03/03/2010 ([id number]) OFFICE/OUTPATIENT VISIT, EST María Elena Ortaer [facility] CPT-4: 84900 01/17/2010 ([id number]) PREV VISIT, EST, AGE 40-64 María Elena MONTEROMICHAEL ValdesJj APPIAH DO [facility] CPT-4: 25419 12/27/2009 Plan of Care Planned Activity Notes Codes Status Date Appointment: María Elena Appiahtel: [facility]2 [facility] [place] Won't have the new insurance [...] I10 05/28/2019 Appointment: María Elena Appiah WPtel: [address] [place], [place] [phone] [place] FOLLOW UP 05/28/2019 Appointment: María Elena Appiah WPtel: [address] [place], [place] [phone] [place] BP [...] M51.16 01/22/2019 Appointment: María Elena Appiah WPtel: [address] [place], [place] [phone] [place] FOLLOW UP 01/22/2019 Patient Education: estradiol- [employer] Coupon [id number] [email or web address]-[email or web address] Completed 01/22/2019 Appointment: María Elena Appiah WPtel: [address] [place], [place] [phone] [place] CANCELED 01/20/2019 Appointment: María Elena Appiah WPtel: [address] [place] [phone] [place] LM NO SHOW 01/06/2019 Appointment: María Elena Appiah WPtel: [address] [place] [phone] [place] CANCELED 10/17/2018 Appointment: María Elena Appiah WPtel: [address] [place], [place] [phone] [place] BP [...] 09/30/2018 Appointment: María Elena Appiah WPtel: [address] [place], [place] [address] [place] FOLLOW UP 09/30/2018 Visit Diagnosis Plan: [...] R63.5 08/27/2018 Appointment: María Elena Appiah WPtel: [address] [place] [address] ACUTE ILLNESS 08/27/2018 Appointment: María Elena Appiah WPtel: [address] [place] [address] [place] Patient stated she went out to [...] L73.9 08/09/2018 Appointment: María Elena Appiah WPtel: [address] [place] [address] ACUTE ILLNESS 08/09/2018 Appointment: María Elena Appiah WPtel: [address] [place] [address] NO SHOW 08/08/2018 Visit Diagnosis Plan: Anxiety [...] 07/22/2018 Appointment: María Elena Appiah WPtel: [address] [facility] ACUTE ILLNESS 07/22/2018 Appointment: Td María Elena S. WPtel: [address] [facility] [place] INJECTION 06/19/2018 Patient Education: Patient [...] : L03.031 06/17/2018 Appointment: Kathleen Zuniga [address] [place] [address] ACUTE ILLNESS 06/17/2018 Patient Education: Patient Medication [...] : B02.9 05/16/2018 Appointment: Kathleen Zuniga [address] [place] [address] ACUTE ILLNESS 05/16/2018 Patient Education: Patient Medication [...] : L03.115 03/20/2018 Appointment: Kathleen Zuniga [address] [phone] FOLLOW UP 03/20/2018 Patient Education: Patient Medication [...] : L03.115 03/18/2018 Appointment: Kathleen Zuniga [address] [place], [place] [address] FOLLOW UP 03/18/2018 Patient Education: Patient Medication [...] : L03.115 03/15/2018 Appointment: Kathleen Zuniga [address] [phone] ACUTE ILLNESS 03/15/2018 Patient Education: Patient Medication [...] ICD-10 : J01.90 02/11/2018 Appointment: Kathleen Zuniga [address] [place] [address] ACUTE ILLNESS 02/11/2018 Patient Education: Patient Medication Summary Completed 02/11/2018 Appointment: María Elena Appiah WPtel: [phone] [id number] [place] INJECTION 02/01/2018 Patient Education: Patient Medication [...] M51.16 01/30/2018 Appointment: Kathleen Zuniga Rose MaryJj [address] [place] [address] ACUTE ILLNESS 01/30/2018 Patient Education: Patient Medication [...] I10 12/18/2017 Appointment: María Elena Appiah WPtel: [facility]7 [facility] Annual Well Visit 12/18/2017 Patient Education: Patient Medication Summary Completed 12/18/2017 Care Plan: Referral Order SNOMED-CT : [id number] Pending 12/18/2017 Appointment: María Elena Appiah WPtel: [facility] [place] [address] [place] INJECTION 12/10/2017 Patient Education: Patient Medication [...] : L03.031 12/07/2017 Appointment: Kathleen Zuniga [address] [place], [place] [phone] ACUTE ILLNESS 12/07/2017 Patient Education: Patient Medication [...] J01.00 10/08/2017 Appointment: Kathleen Zuniga 504 [facility] ACUTE ILLNESS 10/08/2017 Patient Education: Patient Medication Summary Completed 10/08/2017 Appointment: María Elena Appiah WPtel: [phone] [id number] [place] INJECTION 09/21/2017 Patient Education: Patient Medication [...] R06.83 09/20/2017 Appointment: Kathleen Zuniga 504 [facility] ACUTE ILLNESS 09/20/2017 Patient Education: [...] ICD-10 : L60.0 08/29/2017 Appointment: Kathleen Zuniga [address] [place] [address] OFFICE SURGERY 08/29/2017 Patient Education: Patient Medication Summary Completed 08/29/2017 Visit Diagnosis Plan: Actinic keratosis Discussion: Cr yotherapy as above ICD-9 : 702.0 ICD-10 : L57.0 08/01/2017 Appointment: María Elena Appiah WPtel: [address] [place] [address] OFFICE SURGERY 08/01/2017 Patient Education: Patient Medication Summary Completed 08/01/2017 Appointment: María Elena Appiah WPtel: [address] [place] [address] PATIENT THOUGHT APPOINTMENT WAS TOMORROW 07/26/17 CALLED 15 MINUTES BEFORE APPT TO SAY SHE DIDN'T HAVE ANYONE TO COVER HER BUSINESS AND WOULD NOT MAKE IT NO SHOW 07/25/2017 Visit Diagnosis Plan: Cellulitis of left toe Discussio n: Clindamycin and notify if worsening or persistis ICD-9 : 681.10 ICD-10 : L03.032 07/19/2017 Appointment: María Elena Appiah WPtel: [address] [place] [address] MEDICATION REVIEW 07/19/2017 Patient Education: Patient Medication Summary Completed 07/19/2017 Appointment: María Elena Appiah WPtel: [address] [place] [address] CANCELED 07/04/2017 Visit Diagnosis Plan: Generalized hyperhidrosis Discus ian: CBC, CMP, TSH, free T4 ordered to assess. will review labs. ICD-9 : 780.8 ICD-10 : R61 06/27/2017 Visit Diagnosis Plan: Chronic sinusitis, unspecified D iscussion: Referral sent to dr. albarado in [place] per patient request. patient has been treated multiple times for sinus infections with no recovery. patient was seen by dr sanchez in the past with no interventions. patient has deviated septum which may be affecting her sinuses. ICD-9 : 473.9 ICD-10 : J32.9 06/27/2017 Appointment: Kathleen Zuniga [address] [place], [place] 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, including hip Discussion: Shave removal of above lesio n--sent to pathology ICD-9 : 216.7 ICD-10 : D23.72 01/24/2017 Appointment: María Elena Appiah [facility]Ptel: [phone] [facility] 01/23 confirmed ~ OFFICE SURGERY 01/24/2017 Patient Education: Patient Medication Summary Completed 01/24/2017 Appointment: Loan Sánchez [address] [place], [place] [address] 01/09 rescheduled~sl RESCHEDULED 01/15/2017 Visit Diagnosis Plan: [...] 12/13/2016 Appointment: María Elena Appiah WPtel: [address] [place], [place] [address] 12/12 confirmed ~ MEDICATION REVIEW 12/13/2016 Patient Education: Patient Medication Summary Completed 12/13/2016 Appointment: María Elena Appiah WPtel: [address] [place], [place] [phone] [place] rescheduled for 12/13/16 at 11am RESCHEDULED 0 12/06/2016 Appointment: María Elena Appiah WPtel: [address] [place], [place] [phone] [place] CANCELED 11/23/2016 Patient Education: Patient Medication [...] F51.01 11/01/2016 Appointment: María Elena Appiah WPtel: [address] [place], [place] [phone] [place] 10/31 lm `sl 11/01 lm`sl MEDICATION REVIEW 017 Patient Education: Patient Medication Summary Completed 11/01/2016 Referral: Canelo Overton WPtel: [address] [id number] [place] Referral Initiated 10/30/2016 Visit Diagnosis Plan: [...] Z01.419 10/17/2016 Appointment: María Elena Appiah WPtel: [address] [place], [place] [phone] 10/16 confirmed ~sl PAP 10/17/2016 Patient Education: Patient Medication Summary Completed 10/17/2016 Care Plan: MAMMOGRAM SCREENING LOINC : 2 6347-5 Pending 10/17/2016 Visit Diagnosis Plan: Other seasonal allergic rhinitis Discussion: Decadron/Garamycin Nasal [place] Mix Too soon for steroid Retry zyrtec 10mg daily ICD-9 : 477.9 ICD-10 : J30.2 10/10/2016 Appointment: María Elena Appiah WPtel: [address] [place], [place] [phone] [place] FOLLOW UP 10/10/2016 Patient Education: Patient Medication Summary Completed 10/10/2016 Appointment: María Elena Appiah WPtel: [phone] [place], [place] [id number] [place] 10/02 reschedule `sl RESCHEDULED 10/02/2016 Visit Plan: See surgery for removal of n ew left arm lesion and right foot lesion Lyrica to use next month for left arm paresthesias Continue current meds Discussed sunscreen/sunblock combo 09/19/2016 Appointment: María Elena Appiah WPtel: [address] [place], [place] [phone] 09/18 confirmed ~sl FOLLOW UP 09/19/2016 Patient Education: Patient Medication Summary Completed 09/19/2016 Patient Education: Patient Medication Summary Completed 09/18/2016 Care Plan: MAMMOGRAM BOTH BREASTS LOINC : 56992-1 Pending 09/18/2016 Visit Plan: Discussed that needs [...] 08/24/2016 Appointment: María Elena Appiah WPtel: [address] [place] [address] ACUTE ILLNESS 08/24/2016 Patient Education: Patient Medication Summary Completed 08/24/2016 Patient Education: Patient Medication Summary Completed 08/23/2016 Care Plan: MAMMOGRAM SCREENING LOINC : 2 6347-5 Pending 08/23/2016 Visit Plan: Finish doxycycline Add Breo 100/25 1 p BID for 2 weeks If not improving within next 2 days will get CXR 08/16/2016 Appointment: María Elena Appiah WPtel: [address] [place], [place] [phone] ACUTE ILLNESS 08/16/2016 Patient Education: Patient Medication Summary Completed 08/16/2016 Visit Plan: Supportive care. Rest, Fluid s, Tylenol/Motrin prn fever or bodyaches. Notify if worsening symptoms. Doxycyline and Prednisone 08/10/2016 Appointment: María Elena Appiah WPtel: [address] [place], [place] [phone] 08/09 lm`sl....confirmed-sp FOLLOW UP 09/2015 Patient Education: Patient Medication Summary Completed 08/10/2016 Visit Plan: Saline nasal flushes prn. Ty lenol/Motrin prn headache. Notify if persists/symptoms worsening. Dexamethasone 8mg IM today May use coricedan and mucinex 08/02/2016 Appointment: María Elena Appiah WPtel: [address] [place] [address] ACUTE ILLNESS 08/02/2016 Patient Education: Patient Medication Summary Completed 08/02/2016 Visit Plan: Cryotherapy as above and lef t forearm lesion removal as above with 5-0 punch biopsy and sent to path Return in 10 days for suture removal 08/01/2016 Appointment: María Elena Appiah WPtel: [address] [place], [place] [phone] 07/31 confirmed`~ OFFICE SURGERY 08/01/2016 Patient Education: Patient Medication Summary Completed 08/01/2016 Visit Plan: Stop clindamycin Check CBC, CMP, ESR now/STAT 07/27/2016 Appointment: María Elena Appiah WPtel: [address] [place] [address] ACUTE ILLNESS 07/27/2016 Patient Education: Patient Medication Summary Completed 07/27/2016 Visit Plan: Update lab and check ABIs to start with Will likely need cardiology evaluation to rule out PVD Clindamycin for 10 days Daily yogurt or probiotic Will return for removal of left arm lesions 07/20/2016 Appointment: María Elena Appiah WPtel: [address] [place], [place] [phone] ACUTE ILLNESS 07/20/2016 Patient Education: Patient Medication Summary Completed 07/20/2016 Patient Education: Patient Medication Summary Completed 07/20/2016 Care Plan: MAMMOGRAM BOTH BREASTS LOINC : 77385-4 Pending 07/20/2016 Care Plan: US EXAM CHEST LOINC : 75806-8 Pending 07/20/2016 Visit Plan: Wound culture collected from left great toe Appearance is somewhat staph like Rx as above Wound cleanser and skin care reviewed May need to add oral antibiotic if sores do not heal or continue to reoccur 07/06/2016 Appointment: Loan Sánchez [address] [place] [address] ACUTE ILLNESS 07/06/2016 Patient Education: Patient Medication Summary Completed 07/06/2016 Appointment: María Elena Appiah WPtel: [address] [place] [address] [place] INJECTION 05/25/2016 Patient Education: Patient Medication Summary Completed 05/25/2016 Visit Plan: Saline nasal flushes prn. Ty lenol/Motrin prn headache. Notify if persists/symptoms worsening. Dexamethasone and Rocephin given 04/26/2016 Appointment: María Elena Appiah WPtel: [address] [place] [address] ACUTE ILLNESS 04/26/2016 Patient Education: Patient Medication Summary Completed 04/26/2016 Visit Plan: Check CBC, CMP, TSH, FreeT4, HbA1C, estradiol, lipids in AM 03/02/2016 Appointment: María Elena Appiah WPtel: [address] [place] [address] 03/01 lm~sl ACUTE ILLNESS 03/02/2016 Patient Education: Patient Medication Summary Completed 03/02/2016 Visit Plan: Exam is nearly normal Needs to be taking daily antihistamine Would prefer to use oral steroids instead of shot but patient insist that oral steroids cause horrible headaches for her Will given kenalog IM instead 02/09/2016 Appointment: Loan Sánchez [address] [place] [address] ACUTE ILLNESS 02/09/2016 Patient Education: Patient Medication Summary Completed 02/09/2016 Visit Plan: Culture urine Macrobid DC xa nax Trial of Ativan 1mg q HS 01/24/2016 Appointment: María Elena Appiah WPtel: [address] [place] [address] ACUTE ILLNESS 01/24/2016 Patient Education: Patient Medication Summary Completed 01/24/2016 Visit Plan: No steroid or rocephin injec tion warranted Can have oral prednisone Continue current home regimen Needs to follow up with Dr Sanchez if problems persist 12/23/2015 Appointment: Loan Sánchez [address] [place], [place] [phone] ACUTE ILLNESS 12/23/2015 Patient Education: Patient Medication Summary Completed 12/23/2015 Visit Plan: Saline nasal flushes prn. Ty lenol/Motrin prn headache. Notify if persists/symptoms worsening. Kenalog 40mg IM today 12/08/2015 Appointment: María Elena Appiah WPtel: [address] [place] [address] 12/06 confirmed~ ACUTE ILLNESS 12/08/2015 Patient Education: Patient Medication Summary Completed 12/08/2015 Appointment: María Elena Appiah WPtel: [address] [place] [address] ACUTE ILLNESS 11/18/2015 Patient Education: Patient Medication Summary Completed 10/11/2015 Appointment: María Elena Appiah WPtel: [address] [place] [address] [place] INJECTION 10/07/2015 Patient Education: Patient Medication Summary Completed 10/07/2015 Visit Plan: Check renal arterial doppler s and ECHO Change amlodopine to lotrel 5/20mg q HS Will need stress test as well Check CMP, uric acid, ESR 10/06/2015 Appointment: María Elena Appiah WPtel: [address] [place] [address] ACUTE ILLNESS 10/06/2015 Patient Education: Patient Medication Summary Completed 10/06/2015 Patient Education: [facility] - Saving [employer] - Amlodipine Besylate - 18-64 - Dynamic Portal ID Completed 10/06/2015 Appointment: María Elena Appiah WPtel: [address] [place] [address] FOLLOW UP 09/22/2015 Visit Plan: Cephalexin 500 mg PO bid Mery ly topical Mupirocin to lesions on left lateral neck and face Follow-up in one week. Sooner if symptoms worsen 09/14/2015 Appointment: June Flores WPtel: [address] [place] [address] ACUTE ILLNESS 09/14/2015 Patient Education: Patient Medication Summary Completed 09/14/2015 Visit Plan: Change bystolic to bedtime d osing and amlodopine to morning dosing Cryotherapy as above to AKs 09/07/2015 Appointment: María Elena Appiah WPtel: [address] [place] [address] 09/06 appointment made and confirmed ~sl FOLLOW UP 09/07/2015 Patient Education: Patient Medication Summary Completed 09/07/2015 Visit Plan: Increase bystolic back to 20 mg daily but will split and take 10mg in AM and 10mg in PM Stress Reducers 08/18/2015 Appointment: María Elena Appiah WPtel: [address] [place] [address] 08/17/15 appt confirmed cn ACUTE ILLNESS 08/18 Patient Education: Patient Medication Summary Completed 08/18/2015 Appointment: María Elena Appiah WPtel: [address] [place] [address] BP CHECK 07/07/2015 Patient Education: Patient Medication Summary Completed 07/07/2015 Appointment: María Elena Appiah WPtel: [address] [place] [address] BP CHECK 06/24/2015 Patient Education: Patient Medication Summary Completed 06/24/2015 Appointment: María Elena Appiah WPtel: [address] [place] [address] BP CHECK 06/21/2015 Patient Education: Patient Medication Summary Completed 06/21/2015 Visit Plan: Lab discussed Continue curre nt meds and lifestyle modification Recheck lab in 6mos 06/16/2015 Appointment: María Elena Appiah WPtel: [address] [place] [address] 06/15 confirmed FOLLOW UP 06/16/2015 Patient Education: Patient Medication Summary Completed 06/16/2015 Patient Education: Patient Medication Summary Completed 06/15/2015 Visit Plan: Increase cymbalta to 60mg q HS Keep clonidine at current dose Recheck 2weeks Change xanax to klonopin 06/02/2015 Appointment: María Elena Appiah WPtel: [address] [place] [address] 06/02 FOLLOW UP 06/02/2015 Patient Education: Patient Medication Summary Completed 06/02/2015 Appointment: María Elena Appiah WPtel: [address] [place] [address] ACUTE ILLNESS 05/24/2015 Visit Plan: Increase clonidine to 0.2mg q HS Add cymbalta 30mg q HS Recheck 2weeks Stress Reducers Check fasting lab Discussed sleep study 05/20/2015 Appointment: María Elena Apipah WPtel: [address] [place] [address] ACUTE ILLNESS 05/20/2015 Patient Education: Patient Medication Summary Completed 05/20/2015 Patient Education: [facility] - Saving [employer] - Cymbalta - 18-64 - Dynamic Portal ID Completed 05/20/2015 Appointment: María Elena Appiah WPtel: [address] [place] [address] BP CHECK 05/19/2015 Patient Education: Patient Medication Summary Completed 05/19/2015 Visit Plan: Topical Bactroban alternatin g with topical betamethasone Recheck 2weeks 05/10/2015 Appointment: María Elena Appiah WPtel: [address] [place] [address] 05/07 vm cn...05/07 appt confirmed OFFICE SURGER Y 05/10/2015 Patient Education: Patient Medication Summary Completed 05/10/2015 Referral: Patrick Chandler WPtel: [place] [address] Referral Initiated 05/04/2015 Visit Plan: Saline nasal flushes prn. Ty lenol/Motrin prn headache. Notify if persists/symptoms worsening. Depomedrol 40mg IM today 03/16/2015 Appointment: María Elena Appiah WPtel: [address] [place] [address] ACUTE ILLNESS 03/16/2015 Patient Education: Patient Medication Summary Completed 03/16/2015 Appointment: María Elena Appiah WPtel: [address] [place] [address] ER Follow UP 03/09/2015 Visit Plan: Cryotherapy to lesions as ab ove 10/27/2014 Appointment: María Elena Appiah WPtel: [address] [place] [address] OFFICE SURGERY 10/27/2014 Patient Education: Patient Medication Summary Completed 10/27/2014 Appointment: June Flores WPtel: [address] [place] [address] ACUTE ILLNESS 09/11/2014 Patient Education: Patient Medication Summary Completed 09/11/2014 Visit Plan: Lab discussed Lipitor 10mg d aily Coenzyme Q-10 400mg daily Vitamin D3 5000u daily Recheck lipids with LFTs in 3mos then fwup 08/31/2014 Appointment: María Elena Appiah WPtel: [address] [place] [address] 08/28 voicemail FOLLOW UP 08/31/2014 Patient Education: Patient Medication Summary Completed 08/31/2014 Appointment: María Elena Appiah WPtel: [address] [place] [address] US LAB 08/27/2014 Appointment: María Elena Appiah WPtel: [address] [place] [address] US LAB 08/27/2014 Patient Education: Patient Medication Summary Completed 08/27/2014 Appointment: María Elena Appiah WPtel: [address] [place] [address] ACUTE ILLNESS 07/23/2014 Appointment: María Elena Appiah WPtel: [address] [place], [place] [phone] ACUTE ILLNESS 07/21/2014 Patient Education: Patient Medication Summary Completed 07/21/2014 Visit Plan: Kenalog 40mg IM today Contin ue narendra and jazir Add Flonase 07/15/2014 Appointment: María Elena Appiah WPtel: [address] [place], [place] [phone] ACUTE ILLNESS 07/15/2014 Appointment: María Elena Appiah WPtel: [address] [place], [place] [phone] ACUTE ILLNESS 07/15/2014 Patient Education: Patient Medication Summary Completed 07/15/2014 Visit Plan: Will do metolazone 2.5mg prn with 6 potassium and see if causes as severe cramping Trial of of seroquel XR 50mg q PM with evening meal and let us know how works 05/18/2014 Appointment: María Elena Appiah WPtel: [address] [place], [place] [phone] 05/15 left message FOLLOW UP 05/18/2014 Patient Education: Patient Medication Summary Completed 05/18/2014 Appointment: María Elena Appiah WPtel: [address] [place], [place] [phone] LAB 05/14/2014 Patient Education: Patient Medication Summary Completed 05/14/2014 Appointment: María Elena Appiah WPtel: [address] [place], [place] [phone] [place] INJECTION 04/22/2014 Visit Plan: Rocephin and Kenalog today a nd finish abx given from urgent care 04/21/2014 Appointment: María Elena Appiah WPtel: [address] [place] [address] [place] INJECTION 04/21/2014 Patient Education: Patient Medication Summary Completed 04/21/2014 Appointment: June Flores WPtel: [address] [place] [address] ACUTE ILLNESS 03/04/2014 Patient Education: Patient Medication Summary Completed 03/04/2014 Appointment: María Elena Appiah WPtel: [address] [place] [address] INJECTION 02/27/2014 Patient Education: Patient Medication Summary Completed 02/27/2014 Visit Plan: Cryotherapy as above to all lesions Patient wants to try no meds for insomnia for a while and see how goes 01/13/2014 Appointment: María Elena Appiah WPtel: [address] [place] [address] OFFICE SURGERY 01/13/2014 Patient Education: Patient Medication Summary Completed 01/13/2014 Visit Plan: Stop Melatonin Stop Soma Tri al of trazadone 75mg q HS See ENT for possible tubes as has had chronic ETD and serous otitis media with numerous steroids 12/24/2013 Appointment: María Elena Appiah WPtel: [address] [place] [address] ACUTE ILLNESS 12/24/2013 Patient Education: Patient Medication Summary Completed 12/24/2013 Visit Plan: Saline nasal flushes prn. Ty lenol/Motrin prn headache. Notify if persists/symptoms worsening. 11/12/2013 Appointment: María Elena Appiah WPtel: [address] [place] [address] ACUTE ILLNESS 11/12/2013 Patient Education: Patient Medication Summary Completed 11/12/2013 Appointment: María Elena Appiah WPtel: [address] [place] [address] ACUTE ILLNESS 10/21/2013 Patient Education: Patient Medication Summary Completed 10/21/2013 Visit Plan: Sleep hygiene and sleep rout ine Melatonin 10mg q HS Support stockings and observe 09/22/2013 Appointment: María Elena Appiah WPtel: [address] [place] [address] ACUTE ILLNESS 09/22/2013 Patient Education: Patient Medication Summary Completed 09/22/2013 Appointment: June Flores WPtel: [address] [place] [address] ACUTE ILLNESS 08/27/2013 Patient Education: Patient Medication Summary Completed 08/27/2013 Visit Plan: Proceed with CT scan of head /neck Proceed with occipital nerve injections Butrans 20mcg patch weekly until can get into see Dr. Mcdonough for injections 08/04/2013 Appointment: María Elena Appiah WPtel: [address] [place] [address] FOLLOW UP 08/04/2013 Patient Education: Patient Medication Summary Completed 08/04/2013 Visit Plan: OMT done Daily neck stretche s, moist heat Increase Celebrex to 200mg BID Add flexeril 07/23/2013 Appointment: María Elena Appiah WPtel: [address] [place] [address] 07/22 voicemail FOLLOW UP 07/23/2013 Patient Education: Patient Medication Summary Completed 07/23/2013 Appointment: María Elena Appiah WPtel: [address] [place] [address] ACUTE ILLNESS 06/23/2013 Patient Education: Patient Medication Summary Completed 06/23/2013 Appointment: María Elena Appiah WPtel: [address] [place] [address] ACUTE ILLNESS 05/26/2013 Patient Education: Patient Medication Summary Completed 05/26/2013 Visit Plan: Decrease clonidine to 0.1mg TID If BP remains stable consider decreasing amlodopine Prednisone for 5 days BP check in 1mo 04/16/2013 Appointment: María Elena Appiah WPtel: [address] [place] [address] 04/14 pt called and confirmed appt FOLLOW UP 04/16/2013 Patient Education: Patient Medication Summary Completed 04/16/2013 Appointment: María Elena Appiah WPtel: [address] [place] [address] ACUTE ILLNESS 03/05/2013 Patient Education: Patient Medication Summary Completed 03/05/2013 Visit Plan: Pt has MARIA LEENA on with Dr. Mcdonough Continue Butrans patch Refill Hydrocodone early tomorrow 12/23/2012 Appointment: María Elena Appiah WPtel: [address] [place] [address] FOLLOW UP 12/23/2012 Patient Education: Patient Medication Summary Completed 12/23/2012 Appointment: Lashawn Eckert WPtel: [address] [place] [address] ACUTE ILLNESS 12/16/2012 Patient Education: Patient Medication Summary Completed 12/16/2012 Visit Plan: Proceed with updated MRI of LS spine Continue gabapentin and add soma and diclofenac Will likely need to go for another epidural 12/09/2012 Appointment: María Elena Appiah WPtel: [address] [place] [address] ACUTE ILLNESS 12/09/2012 Patient Education: Patient Medication Summary Completed 12/09/2012 Visit Plan: Injection as above Finish me drol dose pack Chiropracter this afternoon 12/04/2012 Appointment: María Elena Appiah WPtel: [address] [place] [address] ACUTE ILLNESS 12/04/2012 Patient Education: Patient Medication Summary Completed 12/04/2012 Appointment: Mary Tillman WPtel: [address] [place] [address] FOLLOW UP 11/22/2012 Patient Education: Patient Medication Summary Completed 11/22/2012 Appointment: María Elena Appiah WPtel: [address] [place] [address] ACUTE ILLNESS 11/21/2012 Patient Education: Patient Medication Summary Completed 11/21/2012 Appointment: María Elena Appiah WPtel: [address] [place] [address] BP CHECK 11/07/2012 Patient Education: Patient Medication Summary Completed 11/07/2012 Visit Plan: reports extra clonidine and extra amlodipine and extra alprazalam. extra Ketolorac and promethazine last night. Bystolic 10 mg QAM and will continue all other blood pressure meds. Pt. encouraged to rest and hydrate. Discussed stroke and [place] symptoms. Pt. instructed to seek ER eval if symptoms worsen or headache persists. Pt. agrees to ER eval/EMS transport if symptoms worsen. BP re-check. 10/29/2012 Appointment: Lashawn Eckert WPtel: [address] [place] [address] ACUTE ILLNESS 10/29/2012 Patient Education: Patient Medication Summary Completed 10/29/2012 Appointment: María Elena Appiah WPtel: [address] [place] [address] ACUTE ILLNESS 10/14/2012 Patient Education: Patient Medication Summary Completed 10/14/2012 Appointment: María Elena Appiah WPtel: [address] [place] [address] 09/27/2012 Patient Education: Patient Medication Summary Completed 09/27/2012 Appointment: María Elena Appiah WPtel: [address] [place] [address] ACUTE ILLNESS 09/25/2012 Patient Education: Patient Medication Summary Completed 09/25/2012 Appointment: María Elena Appiah WPtel: [address] [place] [address] BP CHECK 09/24/2012 Appointment: María Elena Appiah WPtel: [address] [place] [address] ACUTE ILLNESS 08/29/2012 Patient Education: Patient Medication Summary Completed 08/29/2012 Visit Plan: Cryotherapy as above See Karlos m for right ear lesion--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 ACUTE ILLNESS 05/06/2012 Patient Education: Patient Medication Summary Completed 05/06/2012 Visit Plan: Pt wants to hold on any furt her sleep medications 04/03/2012 Appointment: María Elena Appiah WPtel: [address] [place] [address] FOLLOW UP 04/03/2012 Patient Education: Patient Medication Summary Completed 04/03/2012 Appointment: María Elena Appiah WPtel: [address] [place] [address] FOLLOW UP 03/19/2012 Patient Education: Patient Medication Summary Completed 03/19/2012 Appointment: María Elena Appiah WPtel: [address] [place] [address] BP CHECK 02/22/2012 Patient Education: Patient Medication Summary Completed 02/22/2012 Appointment: María Elena Appiah WPtel: [address] [place] [address] BP CHECK 02/21/2012 Patient Education: Patient Medication Summary Completed 02/21/2012 Visit Plan: Doxycycline and bactroban fo r foot Supportive care on ankles and knees Add norvasc for BP 02/20/2012 Appointment: María Elena Appiah WPtel: [address] [place] [address] ER Follow UP 02/20/2012 Patient Education: Patient Medication Summary Completed 02/20/2012 Appointment: María Elena Appiah WPtel: [address] [place] [address] ACUTE ILLNESS 01/30/2012 Patient Education: Patient Medication Summary Completed 01/30/2012 Appointment: María Elena Appiahtel: [address] [place] [address] ACUTE ILLNESS 01/24/2012 Patient Education: Patient Medication Summary Completed 01/24/2012 Visit Plan: Daily back stretches, moist heat, Biofreeze prn OMT done 01/10/2012 Appointment: María Elena Appiah WPtel: [address] [place] [address] ACUTE ILLNESS 01/10/2012 Patient Education: Patient Medication Summary Completed 01/10/2012 Appointment: María Elena Appiah WPtel: [address] [place] [address] FOLLOW UP 12/11/2011 Patient Education: Patient Medication Summary Completed 12/11/2011 Appointment: María Elena Appiahtel: [address] [place] [address] ACUTE ILLNESS 11/09/2011 Patient Education: Patient Medication Summary Completed 11/09/2011 Appointment: María Elena Appiahtel: [address] [place] [address] ACUTE ILLNESS 09/13/2011 Patient Education: Patient Medication Summary Completed 09/13/2011 Visit Plan: Check CBC, TSH, Free T4, CMP , ESR, Vit D, B12 now Start Prednisone today 08/31/2011 Appointment: María Elena Appiahtel: [address] [place] [address] ACUTE ILLNESS 08/31/2011 Patient Education: Patient Medication Summary Completed 08/31/2011 Appointment: María Elena Appiah WPtel: [address] [place] [address] [place] INJECTION 07/20/2011 Patient Education: Patient Medication Summary Completed 07/20/2011 Visit Plan: Continue current meds Monite r BP Cont stretches from PT 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 07/06/2011 Appointment: María Elena Appiah WPtel: [address] [place], [place] [phone] [place] FOLLOW UP 07/06/2011 Patient Education: Patient Medication Summary Completed 07/06/2011 Appointment: María Elena Appiah WPtel: [address] [place], [place] [phone] BP CHECK 06/06/2011 Patient Education: Patient Medication Summary Completed 06/06/2011 Visit Plan: Add Bystolic at 2.5mg QAM Ad d Robaxin 750mg 2 po q HS BP check in 2wks 05/22/2011 Appointment: María Elena Appiah WPtel: [address] [place], [place] [phone] FOLLOW UP 05/22/2011 Patient Education: Patient Medication Summary Completed 05/22/2011 Appointment: María Elena Appiah WPtel: [address] [place] [phone] ER Follow UP 05/09/2011 Patient Education: Patient Medication Summary Completed 05/09/2011 Appointment: María Elena Appiah WPtel: [address] [place], [place] [phone] [place] FOLLOW UP 02/22/2011 Visit Plan: Rx written for Hydrocodone 1 0/325mg #240 See Ortho 02/14/2011 Appointment: María Elena Appiah WPtel: [address] [place], [place] [phone] OMT 02/14/2011 Patient Education: Patient Medication Summary [...] work. 02/03/2011 Appointment: Lashawn Eckert WPtel: [address] [place] [address] ACUTE ILLNESS 02/03/2011 Patient Education: Patient Medication Summary Completed 02/03/2011 Visit Plan: OMT done Cont daily stretche s 01/31/2011 Appointment: María Elena Appiah WPtel: [address] [place] [address] ACUTE ILLNESS 01/31/2011 Patient Education: Patient Medication Summary Completed 01/31/2011 Visit Plan: Continue pain meds OMT done Proceed with PT No work this summer01/25/2011 Appointment: María Elena Appiah WPtel: [address] [place] [address] ACUTE ILLNESS 01/25/2011 Patient Education: Patient Medication Summary Completed 01/25/2011 Visit Plan: Start PT Long discussion abo ut getting pain meds from only and can only have max of 4grams of tylenol per day Change to Hydrocodone 10/325mg 1- 2 po TID prn pain--#180 called to [facility] 01/18/2011 Appointment: María Elena Appiah WPtel: [address] [place] [address] FOLLOW UP 01/18/2011 Patient Education: Patient Medication Summary Completed 01/18/2011 Visit Plan: Daily back stretches, moist heat, Biofreeze prn 11/29/2010 Appointment: María Elena Appiah WPtel: [address] [place] [address] ER Follow UP 11/29/2010 Patient Education: Patient Medication Summary Completed 11/29/2010 Visit Plan: Saline nasal flushes prn. Ty lenol/Motrin prn headache. Notify if persists/symptoms worsening. Finish augmentin Add Medrol Dose Pack 10/10/2010 Appointment: María Elena Appiah WPtel: [address] [place], [place] [phone] ACUTE ILLNESS 10/10/2010 Patient Education: Patient Medication Summary Completed 10/10/2010 Visit Plan: Cryotherapy x3 to multiple l esions on both forearms 07/19/2010 Appointment: María Elena Appiah WPtel: [address] [place], [place] [phone] OFFICE SURGERY 07/19/2010 Patient Education: Patient Medication Summary Completed 07/19/2010 Appointment: María Elena Appiah WPtel: [address] [place], [place] [phone] [place] BP CHECK 07/06/2010 Patient Education: Patient Medication Summary Completed 07/06/2010 Appointment: María Elena Appiahtel: [address] [place], [place] [phone] [place] BP CHECK 06/30/2010 Patient Education: Patient Medication Summary Completed 06/30/2010 Appointment: María Elena Appiah WPtel: [address] [place], [place] [phone] [place] BP CHECK 06/20/2010 Patient Education: Patient Medication Summary Completed 06/20/2010 Visit Plan: Change Diovan to Exforge 160 /5mg QD OMT done to thoracics BP check in 2wks 06/07/2010 Appointment: María Elena Appiah WPtel: [address] [place], [place] [phone] FOLLOW UP 06/07/2010 Patient Education: Patient Medication Summary Completed 06/07/2010 Appointment: María Elena Appiah WPtel: [address] [place], [place] [phone] [place] BP CHECK 06/03/2010 Patient Education: Patient Medication Summary Completed 06/03/2010 Appointment: María Elena Appiah WPtel: [address] [place], [place] [phone] [place] BP CHECK 06/01/2010 Patient Education: Patient Medication Summary Completed 06/01/2010 Visit Plan: Irritated skin tags to left neck x2 excised at base with scissors and base cauterized 05/30/2010 Appointment: María Elena Appiah WPtel: [address] [place] [address] OFFICE SURGERY 05/30/2010 Patient Education: Patient Medication Summary Completed 05/30/2010 Visit Plan: Saline nasal flushes prn. Ty lenol/Motrin prn headache. Notify if persists/symptoms worsening. Restart Nasonex Has allergy testing set for May 25 04/27/2010 Appointment: María Elena Appiah WPtel: [address] [place] [address] ACUTE ILLNESS 04/27/2010 Patient Education: Patient Medication Summary Completed 04/27/2010 Visit Plan: Saline nasal flushes prn. Ty lenol/Motrin prn headache. Notify if persists/symptoms worsening. Omnaris BID plus injections 04/05/2010 Appointment: María Elena Appiah WPtel: [address] [place] [address] ACUTE ILLNESS 04/05/2010 Patient Education: Patient Medication Summary Completed 04/05/2010 Visit Plan: Saline nasal flushes prn. Ty lenol/Motrin prn headache. Notify if persists/symptoms worsening. 03/09/2010 Appointment: María Elena Appiah WPtel: [address] [place] [address] ACUTE ILLNESS 03/09/2010 Patient Education: Patient Medication Summary Completed 03/09/2010 Visit Plan: Cont Clonidine as is Cont Pr emarin Fwup with surgery as scheduled 03/03/2010 Appointment: María Elena Appiah WPtel: [address] [place] [address] FOLLOW UP 03/03/2010 Patient Education: Patient Medication Summary Completed 03/03/2010 Visit Plan: Check Pelvic US now Dukee tacho Sal C vs Hysterectomy 01/17/2010 Appointment: María Elena Appiah WPtel: [address] [place] [address] ACUTE ILLNESS 01/17/2010 Patient Education: Patient Medication Summary Completed 01/17/2010 Visit Plan: Check fasting lab and schedu le Mammogram 2gm Na Diet Trial of Ambien 10mg qhs Fwup pending lab results 12/27/2009 Appointment: María Elena Appiah WPtel: [phone] [id number] [place] ESTABLISHED PATIENT 12/27/2009 Patient Education: Patient Medication Summary Completed 12/27/2009 Referral: Canelo Overton WPtel: [address] [id number] [place] Referral Initiated Referral: Philipp Flores WPtel: [address] [id number] [place] Referral Appointment Requested Instructions Comment . [...] fwup . Kenalog 40mg IM today Continue narendar and singulair Add Flonase . Will do [...] to rest and hydrate. Discussed stroke and [place] symptoms. Pt. instructed to seek ER eval [...]
--- OUTSIDE RECORDS SUMMARY | 2020-03-13 07:14 | XMS REPORT | CCD ---
Author Author Gale Appiah D.O. Organization [facility] Address [address] [place] [phone] Phone Care Team Providers Care Installation Technician Name Role Phone María Elena Appiah D.O., PP Unavailable CCM Unavailable Summary Purpose Interface Exchange Family History Family History data not found Social History Social History Element Codes Description Effective Dates Tobacco history SNOMED CT: 886901144 Never smoker 05/22/2011 Allergies, Adverse Reactions, Alerts [...] Instructions duloxetine 60 mg capsule,delayed release RxNorm: 004551 TAKE ONE CAPSULE BY MOUTH DAILY 09/11/2019 No Stop Date Active lisinopril 20 mg tablet RxNorm: 390808 TAKE ONE TABLET BY MOUTH DAILY .... THIS REPLACE 10MG TABLETS 09/11/2019 No Stop Date Active allopurinol 300 mg tablet RxNorm: 238232 TAKE ONE TABLET BY LOPEZ TH DAILY 09/11/2019 No Stop Date Active celecoxib 200 mg capsule RxNorm: 015145 TAKE ONE CAPSUL E BY MOUTH TWICE A DAY NEEDED FOR PAIN 09/11/2019 No Stop Date Active clonidine HCl 0.1 mg tablet RxNorm: 873151 TAKE ONE TAB LET BY MOUTH FOUR TIMES A DAY 09/11/2019 No Stop Date Active doxepin 25 mg capsule RxNorm: 5162253 1 Capsule(s) Oral every night at bedtime as needed for sleep 08/21/2019 11/18/2019 Active hydrocodone 10 mg-acetaminophen 325 mg tablet RxNorm: 331147 1-2 Tablet(s) PO TID 08/12/2019 No Stop Date Active as needed for pa in - Previous quantity #240, will start dosing for #180 in April 2011 per Doctor Td. Medrol (Dustin) 4 mg tablets in a dose pack RxNorm: 867865 Tablet(s) Oral As Directed 07/21/2019 No Stop Date Active Premarin 1.25 mg tablet RxNorm: 779586 1 Tablet(s) Oral QD 07/02/20 19 03/28/2020 Active hydrocodone 10 mg-acetaminophen 325 mg tablet RxNorm: 345243 1-2 Tablet(s) PO TID 07/01/2019 08/11/2019 Inactive as needed for pa in - Previous quantity #240, will start dosing for #180 in April 2011 per Doctor Td. gabapentin 300 mg capsule RxNorm: 346289 1 Capsule(s) PO QHS 201809/24/2019 Active celecoxib 200 mg capsule RxNorm: 005537 1 Capsule(s) Or al two times a day as needed for pain 06/27/2019 06/27/2019 Inactive Singulair 10 mg tablet RxNorm: 398906 TAKE ONE TABLET BY MOUTH JOSÉ Y 06/24/2019 No Stop Date Active furosemide 40 mg tablet RxNorm: 506371 TAKE ONE TABLET BY MOUTH EVERY MORNING NEEDED FOR EDEMA . TAKE WITH POTASSIUM 06/24/2019 No Stop Date Active doxepin 25 mg capsule RxNorm: 7687332 TAKE ONE CAPSULE B Y MOUTH EVERY NIGHT AT BEDTIME NEEDED FOR SLEEP 06/24/2019 08/20/2019 Inactive lisinopril 20 mg tablet RxNorm: 972291 TAKE ONE TABLET BY MOUTH DAILY .... THIS REPLACE 10MG TABLETS 06/24/2019 09/10/2019 Inactive nystatin-triamcinolone 100,000 unit/g-0.1 % topical cream Rx Norm: 3476914 1 Application Topical two times a day 06/12/2019 06/19/2019 Inactive apply BID for 1 week nystatin-triamcinolone 100,000 unit/g-0.1 % topical cream Rx Norm: 5875351 1 Application Topical two times a day 06/12/2019 06/11/2019 Inactive apply BID for 1 week hydrocodone 10 mg-acetaminophen 325 mg tablet RxNorm: 287771 1-2 Tablet(s) PO QID as needed for pain MUST LAST 30 DAYS 05/28/2019 06/26/2019 Inactiv e (Response to an electronic controlled substance refill request - RxReferenceNumber: [id number]) baclofen 20 mg tablet RxNorm: 584800 1 Tablet(s) PO TID as needed for muscle spasm 05/19/2019 05/27/2019 Inactive gabapentin 300 mg capsule RxNorm: 156551 1 Capsule(s) PO QHS 201805/27/2019 Inactive lisinopril 20 mg tablet RxNorm: 350960 1 Tablet(s) PO Q D TAKE ONE TABLET BY MOUTH DAILY, REPLACES 10 MG DOSE 05/19/2019 06/23/2019 Inactive doxepin 25 mg capsule RxNorm: 9291216 TAKE ONE CAPSULE B Y MOUTH EVERY NIGHT AT BEDTIME NEEDED FOR SLEEP 05/16/2019 06/14/2019 Inactive lisinopril 20 mg tablet RxNorm: 086773 TAKE ONE TABLET BY MOUTH DAILY, REPLACES 10 MG DOSE 05/16/2019 05/18/2019 Inactive Singulair 10 mg tablet RxNorm: 552061 TAKE ONE TABLET BY MOUTH JOSÉ Y 05/16/2019 06/14/2019 Inactive gabapentin 300 mg capsule RxNorm: 460925 1 Capsule(s) PO QHS 201805/04/2019 Inactive estropipate 1.5 mg tablet RxNorm: 107025 1 Tablet(s) PO QD 05/05/2005/27/2019 Inactive estropipate 1.5 mg tablet RxNorm: 857029 1 Tablet(s) PO QD 05/05/20 19 05/04/2019 Inactive gabapentin 300 mg capsule RxNorm: 551852 1 Capsule(s) PO QHS 201805/18/2019 Inactive hydrocodone 10 mg-acetaminophen 325 mg tablet RxNorm: 863071 1-2 Tablet(s) PO QID as needed for pain MUST LAST 30 DAYS 04/25/2019 05/24/2019 Inactiv e (Response to an electronic controlled substance refill request - RxReferenceNumber: [id number]) metoprolol tartrate 100 mg tablet RxNorm: 624710 TAKE O NE TABLET BY MOUTH TWICE A DAY 04/24/2019 06/22/2019 Inactive cyclobenzaprine 10 mg tablet RxNorm: 760346 TAKE ONE TA BLET BY MOUTH THREE TIMES A DAY NEEDED FOR MUSCLE SPASMS 04/24/2019 05/18/2019 Inactive Lyrica 75 mg capsule RxNorm: 252769 1 Capsule(s) PO QHS 03/25/2019 Inactive triamterene 75 mg-hydrochlorothiazide 50 mg tablet RxNorm: 3 57187 TAKE ONE TABLET BY MOUTH DAILY 03/21/2019 05/19/2019 Inactive Klor-Con 8 mEq tablet,extended release RxNorm: 637326 T FARRUKH ONE TABLET BY MOUTH TWICE A DAY 03/21/2019 05/19/2019 Inactive Lipitor 10 mg tablet RxNorm: 728771 TAKE ONE TABLET BY MOUTH AT BEDTIME 03/21/2019 09/16/2019 Active duloxetine 60 mg capsule,delayed release RxNorm: 791674 TAKE ONE CAPSULE BY MOUTH DAILY 03/21/2019 05/19/2019 Inactive clonidine HCl 0.1 mg tablet RxNorm: 584989 TAKE ONE TAB LET BY MOUTH FOUR TIMES A DAY 03/21/2019 05/19/2019 Inactive allopurinol 300 mg tablet RxNorm: 330405 TAKE ONE TABLET BY LOPEZ TH DAILY 03/21/2019 05/19/2019 Inactive hydrocodone 10 mg-acetaminophen 325 mg tablet RxNorm: 830817 1-2 Tablet(s) PO QID as needed for pain MUST LAST 30 DAYS 02/28/2019 03/29/2019 Inactiv e (Response to an electronic controlled substance refill request - RxReferenceNumber: [id number]) furosemide 40 mg tablet RxNorm: 189414 TAKE ONE TABLET BY MOUTH EVERY MORNING NEEDED FOR EDEMA . TAKE WITH POTASSIUM 02/21/2019 03/22/2019 Inactive cyclobenzaprine 10 mg tablet RxNorm: 288002 TAKE ONE TA BLET BY MOUTH THREE TIMES A DAY NEEDED FOR MUSCLE SPASMS 02/21/2019 04/21/2019 Inactive lisinopril 20 mg tablet RxNorm: 343027 TAKE ONE TABLET BY MOUTH DAILY, REPLACES 10 MG DOSE 02/21/2019 05/15/2019 Inactive doxepin 25 mg capsule RxNorm: 3740191 TAKE ONE CAPSULE B Y MOUTH EVERY NIGHT AT BEDTIME NEEDED FOR SLEEP 02/21/2019 05/15/2019 Inactive nystatin 100,000 unit/gram topical cream RxNorm: 611748 APPLY TO AFFECTED AREA(S) TWO TIMES A DAY 02/21/2019 03/22/2019 Inactive estradiol 1 mg tablet RxNorm: 739994 2 Tablet(s) PO QD replaces premarin 01/22/2019 05/04/2019 Inactive lisinopril 20 mg tablet RxNorm: 444571 TAKE ONE TABLET BY MOUTH DAILY, REPLACES 10 MG DOSE 01/20/2019 02/18/2019 Inactive cyclobenzaprine 10 mg tablet RxNorm: 480995 TAKE ONE TA BLET BY MOUTH THREE TIMES A DAY NEEDED FOR MUSCLE SPASMS 01/20/2019 02/18/2019 Inactive metoprolol tartrate 100 mg tablet RxNorm: 845637 TAKE O NE TABLET BY MOUTH TWICE A DAY 01/20/2019 02/18/2019 Inactive cyclobenzaprine 10 mg tablet RxNorm: 271847 TAKE ONE TA BLET BY MOUTH THREE TIMES A DAY NEEDED FOR MUSCLE SPASMS 12/19/2018 01/17/2019 Inactive lisinopril 20 mg tablet RxNorm: 367409 TAKE ONE TABLET BY MOUTH DAILY, REPLACES 10 MG DOSE 12/19/2018 01/17/2019 Inactive duloxetine 60 mg capsule,delayed release RxNorm: 738468 TAKE ONE CAPSULE BY MOUTH DAILY 12/19/2018 01/17/2019 Inactive Lipitor 10 mg tablet RxNorm: 715678 TAKE ONE TABLET BY MOUTH AT BEDTIME 12/19/2018 01/17/2019 Inactive cyclobenzaprine 10 mg tablet RxNorm: 905360 1 Tablet(s) PO TID as needed for muscle spasm 11/19/2018 12/18/2018 Inactive Singulair 10 mg tablet RxNorm: 910697 1 Tablet(s) PO QD 11/19/2018 Inactive lisinopril 20 mg tablet RxNorm: 539906 TAKE ONE TABLET BY MOUTH DAILY, REPLACES 10 MG DOSE 11/15/2018 12/18/2018 Inactive hydrocodone 10 mg-acetaminophen 325 mg tablet RxNorm: 264261 1-2 Tablet(s) PO QID as needed for pain MUST LAST 30 DAYS 11/13/2018 12/12/2018 Inactiv e (Response to an electronic controlled substance refill request - RxReferenceNumber: [id number]) nystatin 100,000 unit/gram topical cream RxNorm: 930985 APPLY TO AFFECTED AREA(S) TWO TIMES A DAY 10/23/2018 11/06/2018 Inactive lisinopril 20 mg tablet RxNorm: 796639 1 Tablet(s) PO QD replac es 10mg dose 10/18/2018 11/14/2018 Inactive hydrocodone 10 mg-acetaminophen 325 mg tablet RxNorm: 696506 1-2 Tablet(s) QID as needed for pain MUST LAST 30 DAYS 10/08/2018 11/06/2018 Inactive (Response to an electronic controlled substance refill request - RxReferenceNumber: [id number]) lisinopril 10 mg tablet RxNorm: 037960 1 Tablet(s) PO QD 10/03/2018 0 01/21/2019 Inactive Celebrex 200 mg capsule RxNorm: 128902 TAKE ONE CAPSULE BY MOUT H TWICE A DAY 09/30/2018 05/04/2019 Inactive cyclobenzaprine 10 mg tablet RxNorm: 979987 TAKE ONE TA BLET BY MOUTH THREE TIMES A DAY NEEDED FOR MUSCLE SPASMS 09/30/2018 11/18/2018 Inactive doxepin 25 mg capsule RxNorm: 9778573 TAKE ONE CAPSULE B Y MOUTH EVERY NIGHT AT BEDTIME NEEDED 09/05/2018 10/16/2018 Inactive omeprazole 40 mg capsule,delayed release RxNorm: 308691 TAKE ONE CAPSULE BY MOUTH DAILY 09/05/2018 01/21/2019 Inactive furosemide 40 mg tablet RxNorm: 662189 TAKE ONE TABLET BY MOUTH EVERY MORNING NEEDED FOR EDEMA . TAKE WITH POTASSIUM 09/05/2018 11/03/2018 Inactive phentermine 37.5 mg tablet RxNorm: 569503 1 Tablet(s) PO QAM 201701/21/2019 Inactive doxepin 25 mg capsule RxNorm: 7707593 1 Capsule(s) PO QH S as needed for sleep TAKE ONE CAPSULE BY MOUTH EVERY NIGHT AT BEDTIME NEEDED 08/27/2018 09/04/2018 Inactive Keflex 500 mg capsule RxNorm: 037703 1 Capsule(s) PO TID 08/09/2018 1 10/19/2017 Inactive Diflucan 100 mg tablet RxNorm: 306732 1 Tablet(s) PO QD 08/09/2018 Inactive Premarin 1.25 mg tablet RxNorm: 821831 2 Tablet(s) PO QD 08/09/2018 0 05/04/2019 Inactive Zofran ODT 4 mg disintegrating tablet RxNorm: 706693 1 Tablet(s) PO Q4H as needed for nausea 08/09/2018 01/21/2019 Inactive metoprolol tartrate 100 mg tablet RxNorm: 311013 TAKE O NE TABLET BY MOUTH TWICE A DAY 2018 10/04/2018 Inactive doxepin 25 mg capsule RxNorm: 2500427 TAKE ONE CAPSULE B Y MOUTH EVERY NIGHT AT BEDTIME NEEDED 2018 08/26/2018 Inactive cyclobenzaprine 10 mg tablet RxNorm: 115357 TAKE ONE TA BLET BY MOUTH THREE TIMES A DAY NEEDED FOR MUSCLE SPASMS 2018 09/29/2018 Inactive hydrocodone 10 mg-acetaminophen 325 mg tablet RxNorm: 809121 1-2 Tablet(s) QID as needed for pain MUST LAST 30 DAYS 07/29/2018 08/27/2018 Inactive (Response to an electronic controlled substance refill request - RxReferenceNumber: [id number]) nystatin 100,000 unit/gram topical powder RxNorm: 140738 Applic ation TOP BID 07/22/2018 08/04/2018 Inactive doxepin 25 mg capsule RxNorm: 2966667 1 Capsule(s) PO QHS as needed 07/22/2018 08/05/2018 Inactive triamterene 75 mg-hydrochlorothiazide 50 mg tablet RxNorm: 3 22726 TAKE ONE TABLET BY MOUTH DAILY 07/05/2018 10/02/2018 Inactive duloxetine 60 mg capsule,delayed release RxNorm: 254179 TAKE ONE CAPSULE BY MOUTH DAILY 07/05/2018 09/02/2018 Inactive Klor-Con 8 mEq tablet,extended release RxNorm: 266048 T FARRUKH ONE TABLET BY MOUTH TWICE A DAY 07/05/2018 10/02/2018 Inactive Lipitor 10 mg tablet RxNorm: 907762 TAKE ONE TABLET BY MOUTH AT BEDTIME 07/05/2018 09/02/2018 Inactive allopurinol 300 mg tablet RxNorm: 620241 TAKE ONE TABLET BY LOPEZ TH DAILY 07/05/2018 10/02/2018 Inactive clonidine HCl 0.1 mg tablet RxNorm: 957774 TAKE ONE TAB LET BY MOUTH FOUR TIMES A DAY 07/05/2018 10/02/2018 Inactive hydrocodone 10 mg-acetaminophen 325 mg tablet RxNorm: 348888 1-2 Tablet(s) QID as needed for pain MUST LAST 30 DAYS 06/28/2018 07/27/2018 Inactive (Response to an electronic controlled substance refill request - RxReferenceNumber: [id number]) MediHoney (calcium alginate-honey) 4" X 5" bandage RxNorm: 1 Application TOP QD 06/17/2018 06/26/2018 Inactive honey-hydrocolloid dressing 4" X 5" RxNorm: 1 Application TOP QD 06/17/2018 07/16/2018 Inactive furosemide 40 mg tablet RxNorm: 076616 TAKE ONE TABLET BY MOUTH EVERY MORNING NEEDED FOR EDEMA . TAKE WITH POTASSIUM 06/10/2018 07/09/2018 Inactive This is a refill request. hydrocodone 10 mg-acetaminophen 325 mg tablet RxNorm: 904664 1-2 Tablet(s) QID as needed for pain MUST LAST 30 DAYS 05/30/2018 06/27/2018 Inactive (Response to an electronic controlled substance refill request - RxReferenceNumber: [id number]) acyclovir 800 mg tablet RxNorm: 775137 1 Tablet(s) PO 5x day 201705/22/2018 Inactive Premarin 1.25 mg tablet RxNorm: 279286 1-2 Tablet(s) PO QD 05/15/20 18 07/13/2018 Inactive cyclobenzaprine 10 mg tablet RxNorm: 900614 1 Tablet(s) PO TID as needed for muscle spasm 05/09/2018 05/08/2018 Inactive Medrol (Dustin) 4 mg tablets in a dose pack RxNorm: 678843 Tablet(s) PO As Directed 05/02/2018 06/16/2018 Inactive hydrocodone 10 mg-acetaminophen 325 mg tablet RxNorm: 897272 1-2 Tablet(s) QID as needed for pain MUST LAST 30 DAYS 04/30/2018 05/29/2018 Inactive (Response to an electronic controlled substance refill request - RxReferenceNumber: [id number]) duloxetine 60 mg capsule,delayed release RxNorm: 494045 TAKE ONE CAPSULE BY MOUTH DAILY 04/16/2018 05/15/2018 Inactive Celebrex 200 mg capsule RxNorm: 274880 TAKE ONE CAPSULE BY MOUT H TWICE A DAY 04/16/2018 06/14/2018 Inactive Singulair 10 mg tablet RxNorm: 410567 TAKE ONE TABLET BY MOUTH JOSÉ Y 04/16/2018 11/19/2018 Inactive Lipitor 10 mg tablet RxNorm: 065132 TAKE ONE TABLET BY MOUTH AT BEDTIME 04/16/2018 05/15/2018 Inactive hydrocodone 10 mg-acetaminophen 325 mg tablet RxNorm: 661966 1-2 Tablet(s) QID as needed for pain MUST LAST 30 DAYS 03/29/2018 04/27/2018 Inactive (Response to an electronic controlled substance refill request - RxReferenceNumber: [id number]) cyclobenzaprine 10 mg tablet RxNorm: 780333 1 Tablet(s) PO TID as needed for muscle spasm 03/18/2018 05/09/2018 Inactive omeprazole 40 mg capsule,delayed release RxNorm: 708310 1 Capsu le(s) PO QD 02/26/2018 08/24/2018 Inactive hydrocodone 10 mg-acetaminophen 325 mg tablet RxNorm: 947463 1-2 Tablet(s) QID as needed for pain MUST LAST 30 DAYS 02/26/2018 03/27/2018 Inactive (Response to an electronic controlled substance refill request - RxReferenceNumber: [id number]) metoprolol tartrate 100 mg tablet RxNorm: 944384 1 Tablet(s) PO BID 02/18/2018 08/05/2018 Inactive Lyrica 75 mg capsule RxNorm: 487318 1 Capsule(s) PO QHS 01/30/2018 Inactive phentermine 37.5 mg tablet RxNorm: 345599 1 Tablet(s) PO QAM 201706/16/2018 Inactive hydrocodone 10 mg-acetaminophen 325 mg tablet RxNorm: 837447 1-2 Tablet(s) QID as needed for pain MUST LAST 30 DAYS 01/29/2018 02/25/2018 Inactive (Response to an electronic controlled substance refill request - RxReferenceNumber: [id number]) Klor-Con 8 mEq tablet,extended release RxNorm: 371253 1 Tablet( s) PO BID 01/14/2018 07/04/2018 Inactive allopurinol 300 mg tablet RxNorm: 516829 1 Tablet(s) PO QD 01/15/2007/04/2018 Inactive Lipitor 10 mg tablet RxNorm: 688654 1 Tablet(s) PO QHS 01/14/201812/2017 Inactive triamterene 75 mg-hydrochlorothiazide 50 mg tablet RxNorm: 3 37001 1 Tablet(s) PO QD 01/14/2018 07/04/2018 Inactive hydrocodone 10 mg-acetaminophen 325 mg tablet RxNorm: 755289 1-2 Tablet(s) QID as needed for pain MUST LAST 30 DAYS 12/27/2017 01/25/2018 Inactive (Response to an electronic controlled substance refill request - RxReferenceNumber: [id number]) Onglyza 5 mg tablet RxNorm: 993177 1 Tablet(s) PO QD 12/18/201701/29 Inactive metformin 500 mg tablet RxNorm: 918988 1 Tablet(s) PO BID 12/11/2017 12/10/2017 Inactive metformin 500 mg tablet RxNorm: 657728 1 Tablet(s) PO BID 12/11/2017 12/17/2017 Inactive furosemide 40 mg tablet RxNorm: 068401 1 Tablet(s) PO Q AM prn edema--take with potassium 12/11/2017 06/08/2018 Inactive cyclobenzaprine 10 mg tablet RxNorm: 187770 1 Tablet(s) PO TID as needed for muscle spasm 12/11/2017 03/18/2018 Inactive hydrocodone 10 mg-acetaminophen 325 mg tablet RxNorm: 361561 1-2 Tablet(s) QID as needed for pain MUST LAST 30 DAYS 10/23/2017 11/21/2017 Inactive (Response to an electronic controlled substance refill request - RxReferenceNumber: [id number]) Lipitor 10 mg tablet RxNorm: 974381 1 Tablet(s) PO QHS 10/16/201703/2018 Inactive cyclobenzaprine 10 mg tablet RxNorm: 158829 1 Tablet(s) PO TID as needed for muscle spasm 10/09/2017 12/10/2017 Inactive hydroxyzine HCl 25 mg tablet RxNorm: 496400 1 Tablet(s) PO BID as needed for anxiety 09/20/2017 01/29/2018 Inactive Effexor XR 75 mg capsule,extended release RxNorm: 937679 1 Caps ule(s) PO QD 09/20/2017 01/29/2018 Inactive metoprolol tartrate 100 mg tablet RxNorm: 409756 1 Tablet(s) PO BID 08/20/2017 02/18/2018 Inactive baclofen 20 mg tablet RxNorm: 795724 1 Tablet(s) PO TID as needed for muscle spasm 08/20/2017 01/21/2019 Inactive clonidine HCl 0.1 mg tablet RxNorm: 055725 1 Tablet(s) PO QID 08/2005/16/2018 Inactive Seroquel 25 mg tablet RxNorm: 782160 1 Tablet(s) PO QHS 08/17/2017 Inactive Seroquel 25 mg tablet RxNorm: 479715 1 Tablet(s) PO QHS 08/17/2017 Inactive Diflucan 100 mg tablet RxNorm: 116510 TAKE ONE TABLET BY MOUTH JOSÉ Y 07/25/2017 08/07/2017 Inactive hydrocodone 10 mg-acetaminophen 325 mg tablet RxNorm: 531386 1-2 Tablet(s) QID as needed for pain MUST LAST 30 DAYS 07/19/2017 08/17/2017 Inactive (Response to an electronic controlled substance refill request - RxReferenceNumber: [id number]) clindamycin 300 mg capsule RxNorm: 752066 1 Capsule(s) PO TID 07/1907/28/2017 Inactive clotrimazole-betamethasone 1 %-0.05 % topical cream RxNorm: 890588 Application TOP BID to elbow rash 07/19/2017 06/16/2018 Inactive Singulair 10 mg tablet RxNorm: 163901 Tablet(s) TAKE ONE TABLET BY MOUTH DAILY 07/18/2017 04/13/2018 Inactive triamterene 75 mg-hydrochlorothiazide 50 mg tablet RxNorm: 3 52774 1 Tablet(s) PO QD 07/18/2017 01/14/2018 Inactive Celebrex 200 mg capsule RxNorm: 559114 Capsule(s) TAKE ONE CAPSULE BY MOUTH TWICE A DAY 07/18/2017 10/15/2017 Inactive hydrocodone 10 mg-acetaminophen 325 mg tablet RxNorm: 802753 1-2 Tablet(s) QID as needed for pain MUST LAST 30 DAYS 06/19/2017 07/18/2017 Inactive (Response to an electronic controlled substance refill request - RxReferenceNumber: [id number]) hydrocodone 10 mg-acetaminophen 325 mg tablet RxNorm: 939649 1-2 Tablet(s) QID as needed for pain MUST LAST 30 DAYS 06/19/2017 06/18/2017 Inactive (Response to an electronic controlled substance refill request - RxReferenceNumber: [id number]) baclofen 20 mg tablet RxNorm: 467419 1 Tablet(s) PO TID as needed for muscle spasm 06/18/2017 08/20/2017 Inactive Medrol (Dustin) 4 mg tablets in a dose pack RxNorm: 936912 Tablet(s) PO As Directed 06/05/2017 07/18/2017 Inactive omeprazole 40 mg capsule,delayed release RxNorm: 026803 1 Capsu le(s) PO QD 04/20/2017 10/16/2017 Inactive Premarin 1.25 mg tablet RxNorm: 186731 1-2 Tablet(s) PO QD 04/11/20 17 05/15/2018 Inactive duloxetine 60 mg capsule,delayed release RxNorm: 852623 1 Capsu le(s) PO QD 04/11/2017 09/19/2017 Inactive furosemide 40 mg tablet RxNorm: 523224 1 Tablet(s) PO Q AM prn edema--take with potassium 04/11/2017 12/11/2017 Inactive Klor-Con 8 mEq tablet,extended release RxNorm: 931486 1 Tablet( s) PO BID 04/11/2017 01/14/2018 Inactive Lipitor 10 mg tablet RxNorm: 055522 1 Tablet(s) PO QHS 04/11/201702/2018 Inactive amlodipine 5 mg-benazepril 20 mg capsule RxNorm: 129910 1 Capsu le(s) PO QD 04/11/2017 01/29/2018 Inactive allopurinol 300 mg tablet RxNorm: 497887 1 Tablet(s) PO QD 04/11/20 17 01/14/2018 Inactive clonidine HCl 0.1 mg tablet RxNorm: 702492 1 Tablet(s) PO QID 04/0508/19/2017 Inactive baclofen 20 mg tablet RxNorm: 544601 1 Tablet(s) PO TID as needed for muscle spasm 04/02/2017 06/18/2017 Inactive Premarin 1.25 mg tablet RxNorm: 705267 1-2 Tablet(s) PO QD 03/20/20 17 04/10/2017 Inactive hydrocodone 10 mg-acetaminophen 325 mg tablet RxNorm: 242080 1-2 Tablet(s) QID as needed for pain MUST LAST 30 DAYS 03/14/2017 01/21/2019 Inactive (Response to an electronic controlled substance refill request - RxReferenceNumber: [id number]) metoprolol tartrate 100 mg tablet RxNorm: 679287 1 Tablet(s) PO BID 02/12/2017 08/20/2017 Inactive hydrocodone 10 mg-acetaminophen 325 mg tablet RxNorm: 864985 1-2 Tablet(s) QID as needed for pain MUST LAST 30 DAYS 02/08/2017 03/09/2017 Inactive (Response to an electronic controlled substance refill request - [id number]) metoprolol tartrate 100 mg tablet RxNorm: 863822 TAKE O NE TABLET BY MOUTH TWICE A DAY 01/11/2017 02/12/2017 Inactive metoprolol tartrate 100 mg tablet RxNorm: 635019 1 Tablet(s) PO BID 12/18/2016 12/17/2016 Inactive metoprolol tartrate 100 mg tablet RxNorm: 440695 1 Tablet(s) PO BID 12/18/2016 01/10/2017 Inactive furosemide 40 mg tablet RxNorm: 653694 1 Tablet(s) PO Q AM prn edema--take with potassium 12/13/2016 02/10/2017 Inactive amitriptyline 100 mg tablet RxNorm: 391795 1 Tablet(s) PO QHS 11/2812/12/2016 Inactive baclofen 20 mg tablet RxNorm: 887392 1 Tablet(s) PO TID as needed for muscle spasm 11/14/2016 04/01/2017 Inactive triamterene 75 mg-hydrochlorothiazide 50 mg tablet RxNorm: 3 12030 1 Tablet(s) PO QD 11/14/2016 11/13/2016 Inactive metolazone 2.5 mg tablet RxNorm: 801640 TAKE ONE TABLET BY MOUTH DAILY NEEDED FOR EDEMA 11/14/2016 12/12/2016 Inactive triamterene 75 mg-hydrochlorothiazide 50 mg tablet RxNorm: 3 91602 1 Tablet(s) PO QD 11/14/2016 07/18/2017 Inactive amitriptyline 50 mg tablet RxNorm: 233168 TAKE ONE TABL ET BY MOUTH AT BEDTIME NEEDED FOR SLEEP 11/14/2016 11/27/2016 Inactive Cymbalta 60 mg capsule,delayed release RxNorm: 785447 1 Capsule (s) PO QHS 11/14/2016 12/12/2016 Inactive clonidine HCl 0.1 mg tablet RxNorm: 151355 1 Tablet(s) PO QID 11/1304/04/2017 Inactive amitriptyline 50 mg tablet RxNorm: 450921 1 Tablet(s) P O QHS as needed for sleep 11/01/2016 11/27/2016 Inactive duloxetine 60 mg capsule,delayed release RxNorm: 305536 TAKE ONE CAPSULE BY MOUTH DAILY 10/20/2016 01/17/2017 Inactive allopurinol 300 mg tablet RxNorm: 907692 TAKE ONE TABLET BY LOPEZ TH DAILY 10/20/2016 01/16/2017 Inactive Lyrica 75 mg capsule RxNorm: 020801 TAKE ONE CAPSULE BY MOUTH EVERY NIGHT AT BEDTIME 10/20/2016 12/10/2016 Inactive Klor-Con 8 mEq tablet,extended release RxNorm: 624014 T FARRUKH ONE TABLET BY MOUTH TWICE A DAY 10/20/2016 01/17/2017 Inactive Celebrex 200 mg capsule RxNorm: 505179 TAKE ONE CAPSULE BY MOUT H TWICE A DAY 10/20/2016 07/18/2017 Inactive Bystolic 10 mg tablet RxNorm: 083010 TAKE ONE TABLET BY MOUTH EVERY NIGHT AT BEDTIME 10/20/2016 12/17/2016 Inactive amlodipine 5 mg-benazepril 20 mg capsule RxNorm: 120201 TAKE ONE CAPSULE BY MOUTH EVERY NIGHT AT BEDTIME -- TO REPLACE AMLODOPINE 10/20/20162016 Inactive Lipitor 10 mg tablet RxNorm: 334226 TAKE ONE TABLET BY MOUTH EVERY NIGHT AT BEDTIME 10/20/2016 01/17/2017 Inactive alprazolam 0.5 mg tablet RxNorm: 925456 3 Tablet(s) PO QHS as needed for sleep/anxiety 09/20/2016 10/31/2016 Inactive Tamiflu 75 mg capsule RxNorm: 986950 1 Capsule(s) PO QD 09/19/2016 Inactive Lyrica 75 mg capsule RxNorm: 169673 1 Capsule(s) PO QHS 09/19/2016 Inactive prednisone 20 mg tablet RxNorm: 922165 1 Tablet(s) PO QD 08/10/2016 1 10/17/2015 Inactive doxycycline hyclate 100 mg capsule RxNorm: 3732521 1 Capsule(s) PO BID 08/10/2016 08/19/2016 Inactive Medrol (Dustin) 4 mg tablets in a dose pack RxNorm: 922153 Tablet(s) PO As Directed 07/31/2016 08/22/2016 Inactive Singulair 10 mg tablet RxNorm: 208666 TAKE ONE TABLET BY MOUTH JOSÉ Y 07/27/2016 07/18/2017 Inactive hydrocodone 10 mg-acetaminophen 325 mg tablet RxNorm: 665695 1-2 Tablet(s) QID as needed for pain MUST LAST 30 DAYS 07/26/2016 08/24/2016 Inactive (Response to an electronic controlled substance refill request - RxReferenceNumber: [id number]) alprazolam 0.5 mg tablet RxNorm: 912735 3 Tablet(s) PO QHS as needed for anxiety or sleep 07/26/2016 09/20/2016 Inactive clindamycin 300 mg capsule RxNorm: 817389 1 Capsule(s) PO TID 07/2007/29/2016 Inactive Diflucan 100 mg tablet RxNorm: 994034 1 Tablet(s) PO QD 07/20/2016 Inactive Levaquin 500 mg tablet RxNorm: 223576 1 Tablet(s) PO QD 07/17/2016 Inactive Levaquin 500 mg tablet RxNorm: 324837 1 Tablet(s) PO QD 07/10/2016 Inactive Levaquin 500 mg tablet RxNorm: 659472 1 Tablet(s) PO QD 07/10/2016 Inactive mupirocin 2 % topical ointment RxNorm: 503303 TOP Apply topically to affected areas twice daily 07/06/2016 09/18/2016 Inactive Singulair 10 mg tablet RxNorm: 944904 TAKE ONE TABLET BY MOUTH JOSÉ Y 06/21/2016 01/21/2019 Inactive alprazolam 0.5 mg tablet RxNorm: 644141 TAKE THREE TABL ETS BY MOUTH AT BEDTIME NEEDED FOR SLEEP OR STRESS 05/22/2016 06/20/2016 Inactive triamterene 75 mg-hydrochlorothiazide 50 mg tablet RxNorm: 3 67618 1 Tablet(s) PO QD 04/26/2016 10/21/2016 Inactive Premarin 1.25 mg tablet RxNorm: 523112 1-2 Tablet(s) PO QD 04/26/20 16 03/20/2017 Inactive Klor-Con 8 mEq tablet,extended release RxNorm: 069166 1 Tablet( s) PO BID 04/26/2016 10/19/2016 Inactive Celebrex 200 mg capsule RxNorm: 491156 1 Capsule(s) PO BID TAKE ONE CAPSULE BY MOUTH EVERY DAY 04/26/2016 10/19/2016 Inactive Lipitor 10 mg tablet RxNorm: 082388 1 Tablet(s) PO QHS 04/26/201605/2017 Inactive allopurinol 300 mg tablet RxNorm: 061454 1 Tablet(s) PO QD TAKE ONE TABLET BY MOUTH EVERY DAY 04/26/2016 10/19/2016 Inactive amlodipine 5 mg-benazepril 20 mg capsule RxNorm: 638471 1 Capsule(s) PO QHS replaces amlodopine 04/26/2016 10/19/2016 Inactive duloxetine 60 mg capsule,delayed release RxNorm: 266898 1 Capsu le(s) PO QD 04/26/2016 10/19/2016 Inactive Bystolic 10 mg tablet RxNorm: 853608 1 Tablet(s) PO QHS 04/26/2016 Inactive Singulair 10 mg tablet RxNorm: 356795 1 Tablet(s) PO QD TAKE ONE TABLET BY MOUTH DAILY 04/26/2016 06/20/2016 Inactive clonidine HCl 0.1 mg tablet RxNorm: 516079 1 Tablet(s) PO QID 04/2610/22/2016 Inactive hydrocodone 10 mg-acetaminophen 325 mg tablet RxNorm: 542964 1-2 Tablet(s) QID as needed for pain TAKE ONE TO TWO TABLETS BY MOUTH FOUR TIMES A DAY . MUST LAST 30 DAYS 03/31/2016 04/29/2016 Inactive (Response to an electronic controlled substance refill request - RxReferenceNumber: [id number]) Klor-Con 8 mEq tablet,extended release RxNorm: 674557 T FARRUKH ONE TABLET BY MOUTH TWICE A DAY 03/24/2016 04/22/2016 Inactive prednisone 20 mg tablet RxNorm: 376029 1 Tablet(s) PO QD 03/09/2016 0 03/08/2016 Inactive prednisone 20 mg tablet RxNorm: 855591 1 Tablet(s) PO QD 03/09/2016 0 03/13/2016 Inactive alprazolam 0.5 mg tablet RxNorm: 081775 3 Tablet(s) PO QHS as needed for sleep/stress 03/02/2016 01/21/2019 Inactive mupirocin 2 % topical ointment RxNorm: 443432 TOP twice daily to affected areas of face and neck 02/21/2016 04/25/2016 Inactive clonidine HCl 0.1 mg tablet RxNorm: 945553 TAKE ONE TAB LET BY MOUTH FOUR TIMES A DAY 02/15/2016 03/15/2016 Inactive clonidine HCl 0.1 mg tablet RxNorm: 039166 1 Tablet(s) PO QID 02/1404/25/2016 Inactive Premarin 1.25 mg tablet RxNorm: 128607 1-2 Tablet(s) PO QD 02/15/20 16 03/15/2016 Inactive Klor-Con 8 mEq tablet,extended release RxNorm: 704719 T FARRUKH ONE TABLET BY MOUTH TWICE A DAY 02/15/2016 03/15/2016 Inactive potassium chloride ER 20 mEq tablet,extended release(part/cr yst) RxNorm: 790997 2 Tablet(s) PO BID 02/15/2016 03/15/2016 Inactive Macrobid 100 mg capsule RxNorm: 585817 1 Capsule(s) PO BID 01/24/20 16 01/30/2016 Inactive prednisone 20 mg tablet RxNorm: 035425 Take 3tabs PO QD x 2 days, then 2 tabs PO QD x 2 days, then 1 tab PO QD x 2 days, then 1/2 tab PO QDy x 2 days 12/23/2015 04/25/2016 Inactive Klor-Con 8 mEq tablet,extended release RxNorm: 987065 T FARRUKH ONE TABLET BY MOUTH TWICE A DAY 12/20/2015 02/14/2016 Inactive alprazolam 1 mg tablet RxNorm: 178796 1 1/2 Tablet(s) PO QHS 201501/23/2016 Inactive nystatin 100,000 unit/gram topical cream RxNorm: 261758 APPLY TO AFFECTED AREA(S) TWO TIMES A DAY 11/30/2015 12/14/2015 Inactive Singulair 10 mg tablet RxNorm: 854700 TAKE ONE TABLET BY MOUTH JOSÉ Y 11/18/2015 04/25/2016 Inactive allopurinol 300 mg tablet RxNorm: 980960 1 Tablet(s) PO QD TAKE ONE TABLET BY MOUTH EVERY DAY 10/26/2015 04/22/2016 Inactive Singulair 10 mg tablet RxNorm: 806302 TAKE ONE TABLET BY MOUTH JOSÉ Y 10/26/2015 11/17/2015 Inactive duloxetine 60 mg capsule,delayed release RxNorm: 820119 1 Capsu le(s) PO QD 10/26/2015 04/22/2016 Inactive triamterene 75 mg-hydrochlorothiazide 50 mg tablet RxNorm: 3 61347 1 Tablet(s) PO QD 10/26/2015 11/14/2016 Inactive potassium chloride ER 20 mEq tablet,extended release(part/cr yst) RxNorm: 141920 2 Tablet(s) PO BID 10/26/2015 02/14/2016 Inactive Lipitor 10 mg tablet RxNorm: 512235 1 Tablet(s) PO QHS 10/26/2015 Inactive amlodipine 5 mg-benazepril 20 mg capsule RxNorm: 994252 1 Capsule(s) PO QHS replaces amlodopine 10/26/2015 04/22/2016 Inactive Bystolic 10 mg tablet RxNorm: 436368 1 Tablet(s) PO QHS 10/26/2015 Inactive amlodipine 5 mg-benazepril 20 mg capsule RxNorm: 206753 1 Capsule(s) PO QHS replaces amlodopine 10/06/2015 10/25/2015 Inactive amlodipine 5 mg tablet RxNorm: 605973 1 Tablet(s) PO QHS 09/30/2015 0 04/25/2016 Inactive metolazone 2.5 mg tablet RxNorm: 930739 TAKE ONE TABLET BY MOUTH DAILY NEEDED FOR EDEMA 09/30/2015 01/21/2019 Inactive duloxetine 60 mg capsule,delayed release RxNorm: 111024 1 Capsu le(s) PO QD 09/30/2015 10/25/2015 Inactive cephalexin 500 mg capsule RxNorm: 243039 1 Capsule(s) PO BID 201509/23/2015 Inactive mupirocin 2 % topical ointment RxNorm: 135749 TOP twice daily to affected areas of face and neck 09/14/2015 02/20/2016 Inactive baclofen 20 mg tablet RxNorm: 724673 1 Tablet(s) PO TID as needed for muscle spasm 09/01/2015 11/14/2016 Inactive clonidine HCl 0.1 mg tablet RxNorm: 899620 1 Tablet(s) PO QID 09/0102/14/2016 Inactive alprazolam 1 mg tablet RxNorm: 914749 1 1/2 Tablet(s) PO QHS 201409/09/2015 Inactive baclofen 20 mg tablet RxNorm: 754810 1 Tablet(s) PO TID as needed for muscle spasm 07/23/2015 09/01/2015 Inactive omeprazole 40 mg capsule,delayed release RxNorm: 496634 1 Capsu le(s) PO QD 07/23/2015 04/25/2016 Inactive alprazolam 1 mg tablet RxNorm: 036039 1 1/2 Tablet(s) PO QHS 201408/10/2015 Inactive Bystolic 10 mg tablet RxNorm: 775561 1 Tablet(s) PO BID 06/24/2015 Inactive allopurinol 300 mg tablet RxNorm: 941696 1 Tablet(s) PO QD TAKE ONE TABLET BY MOUTH EVERY DAY 06/23/2015 10/20/2015 Inactive alprazolam 1 mg tablet RxNorm: 172482 1 1/2 Tablet(s) PO QHS 201407/06/2015 Inactive clonidine HCl 0.1 mg tablet RxNorm: 425988 1 Tablet(s) PO QID 06/0209/01/2015 Inactive clonidine HCl 0.1 mg tablet RxNorm: 511178 1 Tablet(s) PO QID 06/0206/01/2015 Inactive Cymbalta 60 mg capsule,delayed release RxNorm: 182613 1 Capsule (s) PO QHS 06/02/2015 08/30/2015 Inactive Cymbalta 60 mg capsule,delayed release RxNorm: 944173 1 Capsule (s) PO QHS 06/02/2015 06/01/2015 Inactive clonidine HCl 0.1 mg tablet RxNorm: 679984 1 Tablet(s) PO TID 05/3106/01/2015 Inactive replaces 0.2mg dose metolazone 2.5 mg tablet RxNorm: 337572 TAKE ONE TABLET BY MOUTH DAILY NEEDED FOR EDEMA 05/21/2015 06/19/2015 Inactive Singulair 10 mg tablet RxNorm: 348932 TAKE ONE TABLET BY MOUTH JOSÉ Y 05/21/2015 10/17/2015 Inactive Cymbalta 30 mg capsule,delayed release RxNorm: 886525 1 Capsule (s) PO QHS 05/20/2015 11/14/2016 Inactive betamethasone valerate 0.1 % topical cream RxNorm: 702160 Appli cation TOP BID 05/10/2015 04/25/2016 Inactive Bactroban 2 % topical ointment RxNorm: 431007 Application TOP BID 0 05/10/2015 06/20/2015 Inactive baclofen 20 mg tablet RxNorm: 899774 1 Tablet(s) PO TID as needed 0 04/26/2015 07/23/2015 Inactive Lipitor 10 mg tablet RxNorm: 778849 1 Tablet(s) PO QHS 04/26/201508/2016 Inactive clonidine HCl 0.1 mg tablet RxNorm: 756088 1 Tablet(s) PO TID 04/2605/30/2015 Inactive replaces 0.2mg dose Klor-Con 8 mEq tablet,extended release RxNorm: 551639 1 Tablet( s) PO BID 04/26/2015 04/25/2016 Inactive metolazone 2.5 mg tablet RxNorm: 392868 1 Tablet(s) PO QD as ne eded for edema 04/26/2015 04/25/2015 Inactive triamterene 75 mg-hydrochlorothiazide 50 mg tablet RxNorm: 3 33705 1 Tablet(s) PO QD 04/26/2015 10/22/2015 Inactive Premarin 1.25 mg tablet RxNorm: 264174 1-2 Tablet(s) PO QD 04/26/20 15 10/22/2015 Inactive Bystolic 10 mg tablet RxNorm: 174722 1 Tablet(s) PO QAM TAKE ONE TABLET BY MOUTH EVERY MORNING 04/23/2015 06/23/2015 Inactive clonidine HCl 0.1 mg tablet RxNorm: 920103 1 Tablet(s) PO TID 03/2304/25/2015 Inactive replaces 0.2mg dose nystatin 100,000 unit/gram topical cream RxNorm: 245169 Applica tion TOP BID 03/23/2015 06/20/2015 Inactive baclofen 20 mg tablet RxNorm: 240621 1 Tablet(s) PO TID as needed 0 03/23/2015 04/25/2015 Inactive Premarin 1.25 mg tablet RxNorm: 972723 1-2 Tablet(s) PO QD 03/23/20 15 04/25/2015 Inactive Klor-Con 8 mEq tablet,extended release RxNorm: 041374 1 Tablet( s) PO BID 03/23/2015 04/25/2015 Inactive cefdinir 300 mg capsule RxNorm: 736649 2 Capsule(s) PO QD 03/16/2015 03/25/2015 Inactive baclofen 20 mg tablet RxNorm: 159836 1 Tablet(s) PO TID as needed 0 03/02/2015 03/22/2015 Inactive allopurinol 300 mg tablet RxNorm: 097902 1 Tablet(s) PO QD TAKE ONE TABLET BY MOUTH EVERY DAY 02/22/2015 05/22/2015 Inactive Klor-Con M20 mEq tablet,extended release RxNorm: 772676 2 Tablet(s) PO BID to use with lasix 02/22/2015 06/20/2015 Inactive clonidine HCl 0.1 mg tablet RxNorm: 694651 1 Tablet(s) PO TID 02/1903/22/2015 Inactive replaces 0.2mg dose Lipitor 10 mg tablet RxNorm: 759996 1 Tablet(s) PO QHS 01/20/201506/2015 Inactive Lipitor 10 mg tablet RxNorm: 024649 1 Tablet(s) PO QHS 01/20/2015 Inactive Singulair 10 mg tablet RxNorm: 469582 1 Tablet(s) PO QD TAKE ONE TABLET BY MOUTH EVERY DAY 11/20/2014 05/18/2015 Inactive Lipitor 10 mg tablet RxNorm: 306207 1 Tablet(s) PO QHS 11/20/201408/2015 Inactive allopurinol 300 mg tablet RxNorm: 274209 1 Tablet(s) PO QD TAKE ONE TABLET BY MOUTH EVERY DAY 11/20/2014 02/16/2015 Inactive Bystolic 10 mg tablet RxNorm: 802640 1 Tablet(s) PO QAM TAKE ONE TABLET BY MOUTH EVERY MORNING 11/20/2014 04/22/2015 Inactive Klor-Con 8 mEq tablet,extended release RxNorm: 299498 1 Tablet( s) PO BID 11/20/2014 02/17/2015 Inactive baclofen 20 mg tablet RxNorm: 546484 1 Tablet(s) PO TID as needed 0 11/20/2014 01/21/2019 Inactive baclofen 20 mg tablet RxNorm: 114352 1 Tablet(s) PO TID as needed 0 10/27/2014 11/19/2014 Inactive baclofen 20 mg tablet RxNorm: 578613 1 Tablet(s) PO TID as needed 0 10/26/2014 03/01/2015 Inactive allopurinol 300 mg tablet RxNorm: 383462 1 Tablet(s) PO QD TAKE ONE TABLET BY MOUTH EVERY DAY 10/26/2014 11/20/2014 Inactive Bystolic 10 mg tablet RxNorm: 193512 1 Tablet(s) PO QAM TAKE ONE TABLET BY MOUTH EVERY MORNING 10/26/2014 11/20/2014 Inactive clonidine HCl 0.1 mg tablet RxNorm: 428259 1 Tablet(s) PO TID 09/2805/27/2019 Inactive replaces 0.2mg dose clonidine HCl 0.1 mg tablet RxNorm: 421369 1 Tablet(s) PO TID 09/2802/18/2015 Inactive replaces 0.2mg dose baclofen 20 mg tablet RxNorm: 143414 1 Tablet(s) PO TID as needed 1 11/01/2013 08/30/2014 Inactive Lipitor 10 mg tablet RxNorm: 549761 1 Tablet(s) PO QHS 08/31/2014 Inactive baclofen 20 mg tablet RxNorm: 935902 1 Tablet(s) PO TID as needed 1 11/01/2013 10/26/2014 Inactive triamterene 75 mg-hydrochlorothiazide 50 mg tablet RxNorm: 3 22145 1 Tablet(s) PO QD 08/31/2014 02/26/2015 Inactive Klor-Con 8 mEq tablet,extended release RxNorm: 538760 1 Tablet( s) PO BID 08/31/2014 11/20/2014 Inactive baclofen 20 mg tablet RxNorm: 047072 1 Tablet(s) PO TID as needed 1 09/30/2013 10/25/2014 Inactive baclofen 20 mg tablet RxNorm: 695077 1 Tablet(s) PO TID as needed 1 09/30/2013 08/31/2014 Inactive omeprazole 40 mg capsule,delayed release RxNorm: 547195 1 Capsu le(s) PO QD 07/21/2014 07/23/2015 Inactive Flonase 50 mcg/actuation nasal spray,suspension RxNorm: 8963 23 1 [place] NASAL BID 07/15/2014 04/09/2017 Inactive hydrocodone 10 mg-acetaminophen 325 mg tablet RxNorm: 996985 1-2 Tablet(s) QID as needed for pain TAKE ONE TO TWO TABLETS BY MOUTH FOUR TIMES A DAY . MUST LAST 30 DAYS 06/30/2014 07/27/2014 Inactive [id number] baclofen 20 mg tablet RxNorm: 731708 1 Tablet(s) PO TID as needed 1 07/31/2014 Inactive Singulair 10 mg tablet RxNorm: 219320 1 Tablet(s) PO QD TAKE ONE TABLET BY MOUTH EVERY DAY 05/25/2014 11/20/2014 Inactive Bystolic 10 mg tablet RxNorm: 818690 TAKE ONE TABLET BY MOUTH E VERY MORNING 05/25/2014 09/21/2014 Inactive allopurinol 300 mg tablet RxNorm: 341731 1 Tablet(s) PO QD TAKE ONE TABLET BY MOUTH EVERY DAY 05/25/2014 10/21/2014 Inactive baclofen 20 mg tablet RxNorm: 910554 1 Tablet(s) PO TID as needed 0 05/25/2014 06/29/2014 Inactive allopurinol 300 mg tablet RxNorm: 233401 TAKE ONE TABLET BY LOPEZ TH EVERY DAY 05/25/2014 09/21/2014 Inactive Singulair 10 mg tablet RxNorm: 016096 1 Tablet(s) PO QD TAKE ONE TABLET BY MOUTH EVERY DAY 05/25/2014 05/24/2014 Inactive Bystolic 10 mg tablet RxNorm: 675076 1 Tablet(s) PO QAM TAKE ONE TABLET BY MOUTH EVERY MORNING 05/25/2014 10/21/2014 Inactive metolazone 2.5 mg tablet RxNorm: 010022 1 Tablet(s) PO QD as ne eded for edema 05/18/2014 04/25/2015 Inactive Lasix 40 mg tablet RxNorm: 851911 1 Tablet(s) PO QAM s hould take potassium supplementation with this medication 05/14/2014 05/17/2014 Inactive hydrocodone 10 mg-acetaminophen 325 mg tablet RxNorm: 025277 1-2 Tablet(s) QID as needed for pain TAKE ONE TO TWO TABLETS BY MOUTH FOUR TIMES A DAY . MUST LAST 30 DAYS 05/07/2014 06/05/2014 Inactive (Response to an electronic controlled substance refill request - RxReferenceNumber: [id number]) alprazolam 0.5 mg tablet RxNorm: 214773 TAKE ONE TABLET BY MOUTH TWICE A DAY , MUST LAST 30 DAYS 05/07/2014 05/22/2016 Inactive (Response to a n electronic controlled substance refill request - RxReferenceNumber: [id number]) diclofenac sodium 75 mg tablet,delayed release RxNorm: 87991 6 1 Tablet(s) PO BID for pain 04/24/2014 07/20/2014 Inactive Celebrex 200 mg capsule RxNorm: 760187 TAKE ONE CAPSULE BY MOUT H EVERY DAY 04/24/2014 07/20/2014 Inactive alprazolam 0.5 mg tablet RxNorm: 198835 TAKE ONE TABLET BY MOUTH TWICE A DAY , MUST LAST 30 DAYS 03/24/2014 04/22/2014 Inactive (Response to a n electronic controlled substance refill request - RxReferenceNumber: [id number]) diclofenac sodium 75 mg tablet,delayed release RxNorm: 17435 6 1 Tablet(s) PO BID for pain 03/24/2014 04/24/2014 Inactive clonidine HCl 0.1 mg tablet RxNorm: 577347 1 Tablet(s) PO TID 03/2409/28/2014 Inactive replaces 0.2mg dose Klor-Con 8 mEq tablet,extended release RxNorm: 646808 1 Tablet( s) PO BID 02/26/2014 08/31/2014 Inactive diclofenac sodium 75 mg tablet,delayed release RxNorm: 59085 6 1 Tablet(s) PO BID for pain 02/25/2014 03/24/2014 Inactive hydrocodone 10 mg-acetaminophen 325 mg tablet RxNorm: 308416 1-2 Tablet(s) QID as needed for pain TAKE ONE TO TWO TABLETS BY MOUTH FOUR TIMES A DAY . MUST LAST 30 DAYS 02/25/2014 03/26/2014 Inactive (Response to an electronic controlled substance refill request - RxReferenceNumber: [id number]) alprazolam 0.5 mg tablet RxNorm: 791389 Tablet(s) PO BI D as needed for anxiety TAKE ONE TABLET BY MOUTH TWICE A DAY , MUST LAST 30 DAYS 02/25/2014 Inactive (Response to an electronic controlled [place] bstance refill request - RxReferenceNumber: [id number]) [AttnRPh: Saving apply/adjudicate RxGRP:[id number] RxBIN:[id number] RxPCN: ID#:[id number]] alprazolam 0.5 mg tablet RxNorm: 879920 Tablet(s) TAKE ONE TABLET BY MOUTH TWICE A DAY , MUST LAST 30 DAYS 01/27/2014 02/24/2014 Inactive (Respo nse to an electronic controlled substance refill request - RxReferenceNumber: [id number]) [AttnRPh: Saving apply/adjudicate RxGRP:[id number] RxBIN:[id number] RxPCN: ID#:[id number]] hydrocodone 10 mg-acetaminophen 325 mg tablet RxNorm: 524545 1-2 Tablet(s) QID as needed for pain TAKE ONE TO TWO TABLETS BY MOUTH FOUR TIMES A DAY . MUST LAST 30 DAYS 01/27/2014 02/24/2014 Inactive (Response to an electronic controlled substance refill request - RxReferenceNumber: [id number]) alprazolam 0.5 mg tablet RxNorm: 808685 TAKE ONE TABLET BY MOUTH TWICE A DAY , MUST LAST 30 DAYS 01/27/2014 01/26/2014 Inactive (Response to a n electronic controlled substance refill request - RxReferenceNumber: [id number]) Premarin 1.25 mg tablet RxNorm: 627915 1-2 Tablet(s) PO QD 01/28/20 14 07/25/2014 Inactive alprazolam 0.5 mg tablet RxNorm: 286936 TAKE ONE TABLET BY MOUTH TWICE A DAY , MUST LAST 30 DAYS 01/27/2014 01/27/2014 Inactive (Response to a n electronic controlled substance refill request - RxReferenceNumber: [id number]) hydrocodone 10 mg-acetaminophen 325 mg tablet RxNorm: 240570 TAKE ONE TO TWO TABLETS BY MOUTH FOUR TIMES A DAY . MUST LAST 30 DAYS 01/27/20142013 Inactive (Response to an electronic controlled [place] bstance refill request - RxReferenceNumber: [id number]) Celebrex 200 mg capsule RxNorm: 074932 1 Capsule(s) PO QD TAKE ONE CAPSULE BY MOUTH EVERY DAY 12/29/2013 04/27/2014 Inactive hydrocodone 10 mg-acetaminophen 325 mg tablet RxNorm: 227408 1-2 Tablet(s) PO QID as needed for severe pain 12/29/2013 01/27/2014 Inactive allopurinol 300 mg tablet RxNorm: 583323 1 Tablet(s) PO QD TAKE ONE TABLET BY MOUTH EVERY DAY 12/29/2013 05/24/2014 Inactive alprazolam 0.5 mg tablet RxNorm: 281627 TAKE ONE TABLET BY MOUTH TWICE A DAY , MUST LAST 30 DAYS 12/29/2013 01/27/2014 Inactive (Response to a n electronic controlled substance refill request - RxReferenceNumber: [id number]) Celebrex 200 mg capsule RxNorm: 083778 1 Capsule(s) PO QD TAKE ONE CAPSULE BY MOUTH EVERY DAY 12/29/2013 12/29/2013 Inactive Bystolic 10 mg tablet RxNorm: 843178 1 Tablet(s) PO QAM TAKE ONE TABLET BY MOUTH EVERY MORNING 12/29/2013 05/24/2014 Inactive Bystolic 10 mg tablet RxNorm: 919330 1 Tablet(s) PO QAM TAKE ONE TABLET BY MOUTH EVERY MORNING 12/29/2013 12/29/2013 Inactive Singulair 10 mg tablet RxNorm: 737102 1 Tablet(s) PO QD TAKE ONE TABLET BY MOUTH EVERY DAY 12/29/2013 05/25/2014 Inactive hydrocodone 10 mg-acetaminophen 325 mg tablet RxNorm: 814025 TAKE ONE TO TWO TABLETS BY MOUTH FOUR TIMES A DAY . MUST LAST 30 DAYS 12/29/20132013 Inactive (Response to an electronic controlled [place] bstance refill request - RxReferenceNumber: [id number]) Trazadone 75mg Tablet RxNorm: 1 Tablet(s) PO QHS as needed 03/23/2014 Inactive Trazadone 75mg Tablet RxNorm: 1 Tablet(s) PO QHS 12/24/20132014 Inactive Soma 350 mg tablet RxNorm: 702253 Tablet(s) PO TAKE ON E TABLET BY MOUTH THREE TIMES A DAY NEEDED FOR MUSCLE SPASMS. THIS MUST LAST 30 DAYS BETWEEN REFILLS. 12/10/2013 12/22/2013 Inactive (Appended: Cont rolled substance eRx refill - RxReferenceNumber: [id number]) diclofenac sodium 75 mg tablet,delayed release RxNorm: 37499 6 1 Tablet(s) PO BID for pain 12/10/2013 02/24/2014 Inactive allopurinol 300 mg tablet RxNorm: 400565 1 Tablet(s) PO QD 11/20/19 14 12/29/2013 Inactive alprazolam 0.5 mg tablet RxNorm: 177209 2 Tablet(s) PO BID 11/13/19 14 12/29/2013 Inactive prn clonidine 0.1 mg tablet RxNorm: 999244 1 Tablet(s) PO TID 11/12/2013 02/09/2014 Inactive replaces 0.2mg dose Klor-Con M20 mEq tablet,extended release RxNorm: 912605 2 Tablet(s) PO BID to use with lasix 11/12/2013 05/10/2014 Inactive Singulair 10 mg tablet RxNorm: 905570 1 Tablet(s) PO QD 11/12/2013 Inactive hydrocodone 10 mg-acetaminophen 325 mg tablet RxNorm: 584220 1-2 Tablet(s) PO QID as needed for severe pain 11/12/2013 12/28/2013 Inactive Bystolic 10 mg tablet RxNorm: 535388 1 Tablet(s) PO QAM 11/12/2013 Inactive Soma 350 mg tablet RxNorm: 541381 Tablet(s) PO TAKE ON E TABLET BY MOUTH THREE TIMES A DAY NEEDED FOR MUSCLE SPASMS. THIS MUST LAST 30 DAYS BETWEEN REFILLS. 10/13/2013 12/10/2013 Inactive (Appended: Cont rolled substance eRx refill - RxReferenceNumber: [id number]) hydrocodone 10 mg-acetaminophen 325 mg tablet RxNorm: 038665 1-2 Tablet(s) PO QID as needed for severe pain 10/03/2013 11/11/2013 Inactive diclofenac sodium 75 mg tablet,delayed release RxNorm: 89331 8 1 Tablet(s) PO BID for pain 09/11/2013 12/10/2013 Inactive alprazolam 0.5 mg tablet RxNorm: 670137 1 Tablet(s) PO BID May refill on 809/01/2013 10/30/2013 Inactive prn hydrocodone 10 mg-acetaminophen 325 mg tablet RxNorm: 183215 1-2 Tablet(s) PO QID as needed for severe pain 09/01/2013 10/02/2013 Inactive triamterene 75 mg-hydrochlorothiazide 50 mg tablet RxNorm: 3 17768 1 Tablet(s) PO QD 08/04/2013 08/31/2014 Inactive cyclobenzaprine 10 mg tablet RxNorm: 679425 1 Tablet(s) PO TID prn spasm 08/04/2013 08/13/2013 Inactive clonidine 0.1 mg tablet RxNorm: 912420 1 Tablet(s) PO TID 08/04/2013 11/11/2013 Inactive replaces 0.2mg dose cyclobenzaprine 10 mg tablet RxNorm: 622681 1 Tablet(s) PO TID prn spasm 07/23/2013 08/01/2013 Inactive hydrocodone 10 mg-acetaminophen 325 mg tablet RxNorm: 892575 2 1-2 Tablet(s) PO QID as needed for severe pain 06/09/2013 08/07/2013 Inactive Singulair 10 mg tablet RxNorm: 043358 1 Tablet(s) PO QD 05/29/2013 Inactive Klor-Con 8 mEq tablet,extended release RxNorm: 904285 1 Tablet( s) PO BID 05/29/2013 02/26/2014 Inactive allopurinol 300 mg tablet RxNorm: 304713 1 Tablet(s) PO QD 05/29/20 13 11/19/2013 Inactive Bystolic 10 mg tablet RxNorm: 769836 1 Tablet(s) PO QAM take one daily in the morning. 05/29/2013 11/11/2013 Inactive scopolamine 1.5 mg 72 hr Transderm Patch RxNorm: 730718 Application TD Q72H for motion sickness 05/26/2013 07/22/2013 Inactive Soma 350 mg tablet RxNorm: 164043 1 Tablet(s) PO TID as needed for spasm 05/19/2013 10/13/2013 Inactive diclofenac sodium 75 mg tablet,delayed release RxNorm: 05240 8 1 Tablet(s) PO BID for pain 05/14/2013 07/22/2013 Inactive allopurinol 300 mg tablet RxNorm: 197214 1 Tablet(s) PO QD 04/25/20 13 05/28/2013 Inactive alprazolam 0.5 mg tablet RxNorm: 038028 1 Tablet(s) PO BID May refill on 04/26/13 04/25/2013 06/23/2013 Inactive prn Celebrex 200 mg capsule RxNorm: 055956 1 Capsule(s) PO QD 04/16/2013 12/29/2013 Inactive alprazolam 0.5 mg tablet RxNorm: 814180 1 Tablet(s) PO BID May refill on 04/26/13 04/16/2013 04/24/2013 Inactive prn Soma 350 mg tablet RxNorm: 985464 1 Tablet(s) PO TID as needed for spasm 04/16/2013 No Stop Date Active Lasix 40 mg tablet RxNorm: 731707 1 Tablet(s) PO QAM s hould take potassium supplementation with this medication 04/16/2013 06/14/2013 Inactive clonidine 0.1 mg tablet RxNorm: 931912 1 Tablet(s) PO TID 04/16/2013 08/03/2013 Inactive replaces 0.2mg dose prednisone 20 mg tablet RxNorm: 374871 1 Tablet(s) PO BID 04/16/2013 04/20/2013 Inactive diclofenac sodium 75 mg tablet,delayed release RxNorm: 54719 8 1 Tablet(s) PO BID for pain 04/14/2013 05/13/2013 Inactive hydrocodone 10 mg-acetaminophen 325 mg tablet RxNorm: 866345 2 1-2 Tablet(s) PO QID as needed for severe pain 04/14/2013 No Stop Date Active Lasix 40 mg tablet RxNorm: 578386 1 Tablet(s) PO QAM s hould take potassium supplementation with this medication 03/31/2013 04/15/2013 Inactive Celebrex 200 mg capsule RxNorm: 594420 1 Capsule(s) PO QD 03/31/2013 04/15/2013 Inactive alprazolam 0.5 mg tablet RxNorm: 299704 1 Tablet(s) PO BID 03/28/20 13 04/15/2013 Inactive prn hydrocodone 10 mg-acetaminophen 325 mg tablet RxNorm: 483494 2 1-2 Tablet(s) PO QID as needed for severe pain 03/10/2013 No Stop Date Active metformin ER 500 mg 24 hr tablet,extended release RxNorm: 86 1018 1 Tablet(s) PO QD 03/06/2013 07/22/2013 Inactive clindamycin 300 mg capsule RxNorm: 218477 2 Capsule(s) PO TID 03/0503/14/2013 Inactive Zaroxolyn 2.5 mg tablet RxNorm: 842588 1 Tablet(s) PO QAM 03/05/2013 05/19/2015 Inactive amlodipine 10 mg tablet RxNorm: 601360 1 Tablet(s) PO QD 03/03/2013 0 05/25/2013 Inactive Norvasc 10 mg tablet RxNorm: 510459 1 Tablet(s) PO QD 02/28/201307/11 Inactive Celebrex 200 mg capsule RxNorm: 745938 1 Capsule(s) PO QD 02/28/2013 03/30/2013 Inactive diclofenac sodium 75 mg tablet,delayed release RxNorm: 28950 8 1 Tablet(s) PO BID for pain 02/14/2013 03/15/2013 Inactive Soma 350 mg tablet RxNorm: 004053 1 Tablet(s) PO TID as needed for spasm 02/14/2013 No Stop Date Active hydrocodone 10 mg-acetaminophen 325 mg tablet RxNorm: 784702 2 1-2 Tablet(s) PO QID as needed for severe pain 02/14/2013 No Stop Date Active Norvasc 10 mg tablet RxNorm: 496352 1 Tablet(s) PO QD 02/10/201302/09 Inactive Celebrex 200 mg capsule RxNorm: 497940 1 Capsule(s) PO QD 01/27/2013 01/26/2013 Inactive Premarin 1.25 mg tablet RxNorm: 406938 1-2 Tablet(s) PO QD 01/28/20 13 06/25/2013 Inactive alprazolam 0.5 mg tablet RxNorm: 506393 1 Tablet(s) PO BID 01/28/20 13 02/25/2013 Inactive prn amlodipine 5 mg tablet RxNorm: 881176 1 Tablet(s) PO QD 01/27/2013 Inactive Celebrex 200 mg capsule RxNorm: 481962 1 Capsule(s) PO QD 01/27/2013 02/27/2013 Inactive gabapentin 600 mg tablet RxNorm: 341449 1 Tablet(s) PO QHS 01/16/20 13 07/22/2013 Inactive Soma 350 mg tablet RxNorm: 270272 1 Tablet(s) PO TID as needed for spasm 01/15/2013 No Stop Date Active hydrocodone 10 mg-acetaminophen 325 mg tablet RxNorm: 446470 2 1-2 Tablet(s) PO QID as needed for severe pain 01/15/2013 No Stop Date Active Soma 350 mg tablet RxNorm: 143366 1 Tablet(s) PO TID as needed for spasm 01/13/2013 No Stop Date Active alprazolam 0.5 mg tablet RxNorm: 682819 1 Tablet(s) PO BID 12/31/19 13 01/26/2013 Inactive prn diclofenac sodium 75 mg tablet,delayed release RxNorm: 94560 8 1 Tablet(s) PO BID for pain 12/09/2012 01/07/2013 Inactive gabapentin 600 mg tablet RxNorm: 598447 1 Tablet(s) PO QHS 12/10/19 13 01/07/2013 Inactive hydrocodone 10 mg-acetaminophen 325 mg tablet RxNorm: 856274 2 1-2 Tablet(s) PO QID as needed for severe pain 12/02/2012 No Stop Date Active Levaquin 750 mg tablet RxNorm: 864384 1 Tablet(s) PO QD 11/21/2012 Inactive Singulair 10 mg tablet RxNorm: 918625 1 Tablet(s) PO QD 11/11/2012 Inactive clonidine 0.2 mg tablet RxNorm: 719176 1 Tablet(s) PO TID 11/11/2012 04/15/2013 Inactive alprazolam 0.5 mg tablet RxNorm: 953874 1 Tablet(s) PO BID 11/12/19 13 12/10/2012 Inactive prn Klor-Con 8 mEq tablet,extended release RxNorm: 526995 1 Tablet( s) PO BID 11/11/2012 03/04/2013 Inactive hydrocodone 10 mg-acetaminophen 325 mg tablet RxNorm: 338380 2 1-2 Tablet(s) PO QID as needed for severe pain 11/06/2012 No Stop Date Active alprazolam 0.5 mg tablet RxNorm: 385665 1 Tablet(s) PO BID 10/15/19 13 11/10/2012 Inactive prn hydrocodone-acetaminophen 10 mg-325 mg tablet RxNorm: 911212 2 1-2 Tablet(s) PO QID as needed for severe pain 10/10/2012 10/09/2012 Inactive allopurinol 300 mg tablet RxNorm: 831582 1 Tablet(s) PO QD 09/20/19 13 12/18/2012 Inactive alprazolam 0.5 mg tablet RxNorm: 145977 1 Tablet(s) PO BID 09/17/19 13 10/14/2012 Inactive prn hydrocodone-acetaminophen 10 mg-325 mg tablet RxNorm: 942506 2 1-2 Tablet(s) PO QID as needed for severe pain 08/22/2012 08/21/2012 Inactive Norvasc 10 mg tablet RxNorm: 302682 1 Tablet(s) PO QD 08/12/201201/10 Inactive Premarin 1.25 mg tablet RxNorm: 249961 1-2 Tablet(s) PO QD 07/30/20 12 12/26/2012 Inactive alprazolam 0.5 mg tablet RxNorm: 524947 1 Tablet(s) PO BID 07/29/20 12 08/27/2012 Inactive prn Klor-Con 8 mEq tablet,extended release RxNorm: 269813 1 Tablet( s) PO BID 07/29/2012 11/10/2012 Inactive hydrocodone-acetaminophen 10 mg-325 mg tablet RxNorm: 378268 2 1-2 Tablet(s) PO QID as needed for severe pain 07/29/2012 No Stop Date Active Premarin 1.25 mg tablet RxNorm: 252821 1-2 Tablet(s) PO QD 07/29/20 12 07/29/2012 Inactive clonidine 0.2 mg tablet RxNorm: 035309 1 Tablet(s) PO TID 07/29/2012 10/28/2012 Inactive ketorolac 10 mg tablet RxNorm: 696782 1 Tablet(s) PO QID prn he adache 07/18/2012 No Stop Date Active hydrocodone-acetaminophen 10 mg-325 mg tablet RxNorm: 299390 2 1-2 Tablet(s) PO QID as needed for severe pain 07/03/2012 No Stop Date Active amlodipine 5 mg tablet RxNorm: 918096 1 Tablet(s) PO QD 07/02/2012 Inactive allopurinol 300 mg tablet RxNorm: 192290 1 Tablet(s) PO QD 07/02/20 12 09/19/2012 Inactive Celebrex 200 mg capsule RxNorm: 267717 1 Capsule(s) PO QD for j oint pain 06/26/2012 10/23/2012 Inactive diclofenac sodium 75 mg tablet,delayed release RxNorm: 28849 8 1 Tablet(s) PO BID for pain 06/19/2012 09/16/2012 Inactive hydrocodone-acetaminophen 10 mg-325 mg tablet RxNorm: 603801 2 1-2 Tablet(s) PO QID as needed for severe pain 06/10/2012 No Stop Date Active alprazolam 0.5 mg tablet RxNorm: 200071 1 Tablet(s) PO BID 06/03/20 12 07/02/2012 Inactive prn ketorolac 10 mg tablet RxNorm: 181599 1 Tablet(s) PO Q8H 05/27/2012 0 01/21/2019 Inactive as needed for headache hydrocodone-acetaminophen 10 mg-325 mg tablet RxNorm: 580712 2 1-2 Tablet(s) PO QID as needed for severe pain 05/15/2012 No Stop Date Active allopurinol 300 mg tablet RxNorm: 271574 1 Tablet(s) PO QD 05/14/20 12 06/12/2012 Inactive allopurinol 300 mg tablet RxNorm: 934153 1 Tablet(s) PO QD 05/14/20 12 05/13/2012 Inactive amlodipine 5 mg tablet RxNorm: 337217 1 Tablet(s) PO QD 05/01/2012 Inactive amlodipine 5 mg Tab RxNorm: 097061 1 Tablet(s) PO QD 05/01/201204/30 Inactive Celebrex 200 mg capsule RxNorm: 804915 1 Capsule(s) PO QD for j oint pain 05/01/2012 06/25/2012 Inactive Singulair 10 mg tablet RxNorm: 362936 1 Tablet(s) PO QD 05/01/2012 Inactive alprazolam 0.5 mg tablet RxNorm: 961909 1 Tablet(s) PO BID 05/01/2005/30/2012 Inactive prn Celebrex 200 mg Cap RxNorm: 271350 1 Capsule(s) PO QD for joint radu n 05/01/2012 04/30/2012 Inactive hydrocodone-acetaminophen 10 mg-325 mg tablet RxNorm: 745263 2 1-2 Tablet(s) PO QID as needed for severe pain 04/19/2012 No Stop Date Active Lasix 40 mg tablet RxNorm: 700393 1 Tablet(s) PO CORTEZM alan purdyuld take potassium supplementation with this medication 04/05/2012 06/03/2012 Inactive alprazolam 0.5 mg Tab RxNorm: 821810 1 Tablet(s) PO BID 04/05/2012 Inactive prn hydrocodone-acetaminophen 10 mg-325 mg Tab RxNorm: 9411088 1-2 Tablet(s) PO QID as needed for severe pain 03/25/2012 03/24/2012 Inactive clonidine 0.2 mg Tab RxNorm: 918136 1 Tablet(s) PO TID 03/08/2012 Inactive alprazolam 0.5 mg Tab RxNorm: 832265 1 Tablet(s) PO BID 03/08/2012 Inactive prn Soma 350 mg tablet RxNorm: 950934 1 Tablet(s) PO TID for spasm 02/0903/18/2012 Inactive clonidine 0.2 mg tablet RxNorm: 729288 1 Tablet(s) PO TID 03/08/2012 07/28/2012 Inactive Celebrex 200 mg Cap RxNorm: 149883 1 Capsule(s) PO QD for joint radu n 03/01/2012 04/29/2012 Inactive amlodipine 5 mg Tab RxNorm: 552798 1 Tablet(s) PO QD 02/26/201202/24 Inactive amlodipine 5 mg Tab RxNorm: 149091 1 Tablet(s) PO QD 02/26/201204/25 Inactive Bactroban 2 % Ointment RxNorm: 147035 Application TOP QID to sores 02/23/2012 No Stop Date Active amlodipine 2.5 mg tablet RxNorm: 492287 1 Tablet(s) PO QHS 02/20/2002/25/2012 Inactive doxycycline hyclate 100 mg Cap RxNorm: 5493233 1 Capsule(s) PO BID 02/20/2012 02/29/2012 Inactive hydrocodone-acetaminophen 10 mg-325 mg Tab RxNorm: 3801828 1-2 T ablet(s) PO QID 02/08/2012 No Stop Date Active alprazolam 0.5 mg Tab RxNorm: 321286 1 Tablet(s) PO BID 02/08/2012 Inactive prn Singulair 10 mg Tab RxNorm: 822383 1 Tablet(s) PO QD 02/08/201204/30 Inactive Soma 350 mg Tab RxNorm: 236659 1 Tablet(s) PO TID for spasm 012 03/07/2012 Inactive Soma 350 mg Tab RxNorm: 753085 1 Tablet(s) PO TID for spasm 012 02/05/2012 Inactive diclofenac sodium 75 mg tablet,delayed release RxNorm: 31564 8 1 Tablet(s) PO BID for pain 02/01/2012 03/18/2012 Inactive Celebrex 200 mg Cap RxNorm: 654535 1 Capsule(s) PO QD for joint radu n 01/30/2012 02/28/2012 Inactive Lasix 40 mg Tab RxNorm: 724510 1 Tablet(s) PO QAM 01/24/2012 03/18/20 12 Inactive potassium chloride ER 20 mEq tablet,extended release(part/cr yst) RxNorm: 937959 2 Tablet(s) PO BID 01/24/2012 02/22/2012 Inactive alprazolam 0.5 mg Tab RxNorm: 669223 1 Tablet(s) PO BID 01/11/2012 Inactive prn hydrocodone-acetaminophen 10 mg-325 mg Tab RxNorm: 1475452 1-2 T ablet(s) PO QID 01/11/2012 No Stop Date Active Ambien 10 mg Tab RxNorm: 216020 1 Tablet(s) PO QHS 01/11/2012 012 Inactive Klor-Con 8 mEq Tab RxNorm: 755959 1 Tablet(s) PO BID 01/11/201201/22 Inactive diclofenac sodium 75 mg Tab, Delayed Release RxNorm: 010317 1 Tablet(s) PO BID for pain 01/10/2012 01/31/2012 Inactive Ambien 10 mg Tab RxNorm: 600284 1 Tablet(s) PO QHS 12/11/2011 012 Inactive alprazolam 0.5 mg Tab RxNorm: 040120 1 Tablet(s) PO BID 12/11/2011 Inactive prn hydrocodone 10 mg-acetaminophen 325 mg tablet RxNorm: 907290 1-2 Tablet(s) PO TID 11/28/2011 No Stop Date Active as needed for pa in - Previous quantity #240, will start dosing for #180 in April 2011 per Doctor Td. Ambien 10 mg Tab RxNorm: 987632 1 Tablet(s) PO QHS 11/09/2011 012 Inactive alprazolam 0.5 mg Tab RxNorm: 218661 1 Tablet(s) PO BID 11/09/2011 Inactive prn hydrocodone-acetaminophen 10 mg-325 mg Tab RxNorm: 1475000 1-2 T ablet(s) PO TID 11/06/2011 No Stop Date Active as needed for pain - Previous quantity #240, will start dosing for #180 in April 2011 per Doctor Td. Singulair 10 mg Tab RxNorm: 687228 1 Tablet(s) PO QD 10/13/201110/12 Inactive Singulair 10 mg Tab RxNorm: 472317 1 Tablet(s) PO QD 10/13/201102/06 Inactive hydrocodone-acetaminophen 10 mg-325 mg Tab RxNorm: 0682895 1-2 T ablet(s) PO TID 10/10/2011 10/09/2011 Inactive as needed for pain - Previous quantity #240, will start dosing for #180 in April 2011 per Doctor Td. hydrocodone-acetaminophen 10 mg-325 mg Tab RxNorm: 8538008 1-2 T ablet(s) PO TID 10/09/2011 No Stop Date Active as needed for pain - Previous quantity #240, will start dosing for #180 in April 2011 per Doctor Td. Klor-Con 8 mEq Tab RxNorm: 156069 1 Tablet(s) PO BID 10/02/201101/09 Inactive triamterene 75 mg-hydrochlorothiazide 50 mg tablet RxNorm: 3 69188 1 Tablet(s) PO QD 09/14/2011 03/06/2013 Inactive Ambien 10 mg Tab RxNorm: 208183 1 Tablet(s) PO QHS 09/14/2011 012 Inactive hydrocodone-acetaminophen 10 mg-325 mg Tab RxNorm: 2965734 1-2 T ablet(s) PO TID 09/14/2011 No Stop Date Active as needed for pain - Previous quantity #240, will start dosing for #180 in April 2011 per Doctor Td. alprazolam 0.5 mg Tab RxNorm: 218626 1 Tablet(s) PO BID 09/14/2011 Inactive prn Zithromax 500 mg Tab RxNorm: 7455993 1 Tablet(s) PO QD 09/13/201106/2012 Inactive prednisone 20 mg Tab RxNorm: 822238 1 Tablet(s) PO BID 08/31/2011 Inactive Ambien 10 mg Tab RxNorm: 742308 1 Tablet(s) PO QHS 08/17/2011 011 Inactive hydrocodone-acetaminophen 10 mg-325 mg Tab RxNorm: 9200596 1-2 T ablet(s) PO TID 08/17/2011 No Stop Date Active as needed for pain - Previous quantity #240, will start dosing for #180 in April 2011 per Doctor Td. clonidine 0.2 mg Tab RxNorm: 380140 1 Tablet(s) PO TID 08/17/201112/2011 Inactive Ambien 10 mg Tab RxNorm: 923355 1 Tablet(s) PO QHS 08/17/2011 019 Inactive alprazolam 0.5 mg Tab RxNorm: 099768 1 Tablet(s) PO BID 08/17/2011 Inactive prn hydrocodone-acetaminophen 10 mg-325 mg Tab RxNorm: 0450807 1-2 T ablet(s) PO TID 08/17/2011 08/16/2011 Inactive as needed for pain - Previous quantity #240, will start dosing for #180 in April 2011 per Doctor Td. Singulair 10 mg Tab RxNorm: 788733 1 Tablet(s) PO QD 08/17/201108/16 Inactive Klor-Con 8 mEq Tab RxNorm: 373382 1 Tablet(s) PO QD 08/17/20112011 Inactive alprazolam 0.5 mg Tab RxNorm: 121718 1 Tablet(s) PO BID 07/20/2011 Inactive prn Ambien 10 mg Tab RxNorm: 488220 1 Tablet(s) PO QHS 07/20/2011 012 Inactive Singulair 10 mg Tab RxNorm: 498343 1 Tablet(s) PO QD 07/20/201107/19 Inactive Premarin 1.25 mg tablet RxNorm: 627985 2 Tablet(s) PO QD 07/20/2011 0 01/21/2019 Inactive Premarin 1.25 mg tablet RxNorm: 439033 1-2 Tablet(s) PO QD 07/20/20 11 12/16/2011 Inactive Premarin 1.25 mg Tab RxNorm: 341861 1-2 Tablet(s) PO QD 07/06/2011 Inactive alprazolam 0.5 mg Tab RxNorm: 192289 1 Tablet(s) PO BID 06/22/2011 Inactive prn alprazolam 0.5 mg Tab RxNorm: 010123 1 Tablet(s) PO BID 06/22/2011 Inactive prn Premarin 1.25 mg Tab RxNorm: 048631 1 Tablet(s) PO QD m ay do 90 day fill if desired 06/22/2011 07/05/2011 Inactive hydrocodone-acetaminophen 10 mg-325 mg Tab RxNorm: 8304296 1-2 T ablet(s) PO TID 06/22/2011 No Stop Date Active as needed for pain - Previous quantity #240, will start dosing for #180 in April 2011 per Doctor Td. clonidine 0.2 mg Tab RxNorm: 724865 1 Tablet(s) PO TID 05/25/201103/2011 Inactive triamterene-hydrochlorothiazide 75 mg-50 mg Tab RxNorm: 3108 18 1 Tablet(s) PO QD 05/25/2011 09/13/2011 Inactive alprazolam 0.5 mg Tab RxNorm: 451600 1 Tablet(s) PO BID 05/25/2011 Inactive prn hydrocodone-acetaminophen 10 mg-325 mg Tab RxNorm: 3500536 1-2 T ablet(s) PO TID 05/25/2011 No Stop Date Active as needed for pain - Previous quantity #240, will start dosing for #180 in April 2011 per Doctor Td. Robaxin-750 750 mg Tab RxNorm: 054207 2 Tablet(s) PO QHS 05/22/2011 1 Inactive prn spasm hydrocodone-acetaminophen 10 mg-325 mg Tab RxNorm: 4913585 1-2 T ablet(s) PO TID 04/26/2011 No Stop Date Active as needed for pain - Previous quantity #240, will start dosing for #180 in April 2011 per Doctor Td. alprazolam 0.5 mg Tab RxNorm: 240331 1 Tablet(s) PO BID 04/25/2011 Inactive prn Klor-Con 8 mEq Tab RxNorm: 439683 1 Tablet(s) PO QD 03/30/20112010 Inactive Klor-Con 8 mEq Tab RxNorm: 468591 1 Tablet(s) PO QD 03/29/20112010 Inactive hydrocodone-acetaminophen 10 mg-325 mg Tab RxNorm: 7434705 1-2 T ablet(s) PO TID 03/20/2011 04/25/2011 Inactive as needed for pain - Previous quantity #240, will start dosing for #180 in April 2011 per Doctor Td. alprazolam 0.5 mg Tab RxNorm: 427238 1 Tablet(s) PO BID prn 011 03/30/2011 Inactive Ambien 10 mg Tab RxNorm: 320868 1 Tablet(s) PO QHS 03/01/2011 011 Inactive cyclobenzaprine 10 mg Tab RxNorm: 786630 1 Tablet(s) PO TID 011 03/18/2012 Inactive cyclobenzaprine 10 mg Tab RxNorm: 451802 1 Tablet(s) PO TID 011 01/08/2011 Inactive cyclobenzaprine 10 mg Tab RxNorm: 349007 1 Tablet(s) PO TID 011 12/20/2010 Inactive terbinafine 250 mg Tab RxNorm: 886924 1 Tablet(s) PO QD 12/12/2010 Inactive triamterene-hydrochlorothiazide 75 mg-50 mg Tab RxNorm: 3108 18 1 Tablet(s) PO QD 12/07/2010 06/04/2011 Inactive Klor-Con 8 8 mEq Tab RxNorm: 423654 1 Tablet(s) PO QD 12/07/201001/08 Inactive Premarin 1.25 mg Tab RxNorm: 448319 2 Tablet(s) PO QD 12/07/201001/08 Inactive clonidine 0.2 mg Tab RxNorm: 325961 1 Tablet(s) PO TID 12/07/2010 Inactive hydrocodone-acetaminophen 7.5 mg-650 mg Tab RxNorm: 639859 1 Ta blet(s) PO Q4H 12/05/2010 01/21/2019 Inactive hydrocodone-acetaminophen 7.5 mg-650 mg Tab RxNorm: 426785 1 Ta blet(s) PO Q4H 10/26/2010 11/14/2010 Inactive hydrocodone-acetaminophen 7.5 mg-650 mg Tab RxNorm: 494694 1 Ta blet(s) PO Q4H 10/13/2010 10/25/2010 Inactive hydrocodone-acetaminophen 7.5 mg-650 mg Tab RxNorm: 098111 1 Ta blet(s) PO Q4H 09/15/2010 09/12/2010 Inactive alprazolam 0.5 mg Tab RxNorm: 038333 1 Tablet(s) PO BID prn 011 09/12/2010 Inactive terbinafine 250 mg Tab RxNorm: 154457 1 Tablet(s) PO QD 09/05/2010 Inactive hydrocodone-acetaminophen 7.5 mg-650 mg Tab RxNorm: 992820 1 Ta blet(s) PO Q4H 08/29/2010 09/17/2010 Inactive alprazolam 0.5 mg Tab RxNorm: 096304 1 Tablet(s) PO BID prn 010 09/27/2010 Inactive alprazolam 0.5 mg Tab RxNorm: 235697 1 Tablet(s) PO BID prn 010 09/06/2010 Inactive Klor-Con 8 mEq Tab RxNorm: 808808 1 Tablet(s) PO QD 08/08/20102010 Inactive hydrocodone-acetaminophen 7.5 mg-650 mg Tab RxNorm: 716628 1 Ta blet(s) PO Q4H 08/08/2010 08/27/2010 Inactive Ambien 10 mg Tab RxNorm: 851729 1 Tablet(s) PO QHS 08/08/2010 Inactive clonidine 0.2 mg Tab RxNorm: 684997 1 Tablet(s) PO TID 08/08/2010 Inactive Premarin 1.25 mg Tab RxNorm: 027835 2 Tablet(s) PO QD 08/08/201009/12 Inactive Ambien 10 mg Tab RxNorm: 090041 1 Tablet(s) PO QHS 07/18/2010 Inactive alprazolam 0.5 mg Tab RxNorm: 293023 1 Tablet(s) PO BID prn 010 08/07/2010 Inactive hydrocodone-acetaminophen 7.5 mg-650 mg Tab RxNorm: 026830 1 Ta blet(s) PO Q4H 07/12/2010 07/31/2010 Inactive clonidine 0.2 mg Tab RxNorm: 203860 1 Tablet(s) PO TID 06/20/2010 Inactive terbinafine 250 mg Tab RxNorm: 857411 1 Tablet(s) PO QD 05/24/2010 Inactive Clonidine 0.2 mg Tab RxNorm: 324541 1 Tablet(s) PO TID 05/24/201006/2010 Inactive Ambien 10 mg Tab RxNorm: 831718 1 Tablet(s) PO QHS 05/24/2010 Inactive alprazolam 0.5 mg Tab RxNorm: 799556 1 Tablet(s) PO BID 05/24/2010 Inactive Klor-Con 8 mEq Tab RxNorm: 251503 1 Tablet(s) PO QD 05/24/20102009 Inactive alprazolam 0.5 mg Tab RxNorm: 423062 2 Tablet(s) PO QD prn 05/24/20 10 07/17/2010 Inactive triamterene-hydrochlorothiazide 75 mg-50 mg Tab RxNorm: 3108 18 1 Tablet(s) PO QD 05/24/2010 11/19/2010 Inactive Ambien 10 mg Tab RxNorm: 473593 1 Tablet(s) PO QHS 05/23/2010 010 Inactive Alprazolam 0.5 mg Tab RxNorm: 302750 2 Tablet(s) PO QD prn 05/23/20 10 05/23/2010 Inactive Premarin 1.25 mg Tab RxNorm: 921269 2 Tablet(s) PO QD 05/19/201007/12 Inactive Hydrocodone-Acetaminophen 7.5 mg-650 mg Tab RxNorm: 750107 1 Ta blet(s) PO Q4H 05/19/2010 03/20/2011 Inactive Prednisone 20 mg Tab RxNorm: 652381 1 Tablet(s) PO BID 05/17/2010 Inactive Prednisone 20 mg Tab RxNorm: 055053 1 Tablet(s) PO BID 05/06/201001/2010 Inactive Premarin 1.25 mg Tab RxNorm: 805707 Tablet(s) PO 2 M-W-F, and 1 Ac-Gz-Ted-Sun 05/05/2010 08/02/2010 Inactive Premarin 1.25 mg Tab RxNorm: 894128 Tablet(s) PO 2 M-W-F, and 1 Fa-Vl-Hsh-Sun 05/04/2010 05/04/2010 Inactive Premarin 1.25 mg Tab RxNorm: 091924 Tablet(s) PO 2 M-W-F, and 1 Dg-Mg-Xqm-Sun 05/04/2010 05/03/2010 Inactive Prednisone 20 mg Tab RxNorm: 659229 1 Tablet(s) PO BID 04/27/2010 Inactive Alprazolam 0.5 mg Tab RxNorm: 149886 2 Tablet(s) PO QD prn 04/26/20 10 05/22/2010 Inactive Clindamycin 300 mg Cap RxNorm: 941012 2 Capsule(s) PO TID 04/05/2010 04/18/2010 Inactive Terbinafine 250 mg Tab RxNorm: 124761 1 Tablet(s) PO QD 04/04/2010 Inactive Hydrocodone-Acetaminophen 7.5 mg-650 mg Tab RxNorm: 733237 1 Ta blet(s) PO Q4H 03/30/2010 04/18/2010 Inactive Avelox 400 mg Tab RxNorm: 328560 1 Tablet(s) PO QD 03/09/2010 010 Inactive Hydrocodone-Acetaminophen 7.5 mg-650 mg Tab RxNorm: 876701 1 Ta blet(s) PO Q4H 03/08/2010 03/27/2010 Inactive Alprazolam 0.5 mg Tab RxNorm: 479352 2 Tablet(s) PO QD prn 03/08/20 10 04/25/2010 Inactive Klor-Con 8 mEq Tab RxNorm: 020506 1 Tablet(s) PO QD when takes lasi x 03/07/2010 08/03/2010 Inactive Premarin 1.25 mg Tab RxNorm: 718282 1 Tablet(s) PO QD 03/03/201003/11 Inactive Alprazolam 0.5 mg Tab RxNorm: 475742 1 Tablet(s) PO BID PRN 010 No Stop Date Active triamterene-hydrochlorothiazide 75 mg-50 mg Tab RxNorm: 3108 18 1 Tablet(s) PO QD 02/09/2010 02/03/2011 Inactive Hydrocodone-Acetaminophen 10 mg-750 mg Tab RxNorm: 420456 1 Tablet(s) PO Q4H PRN 02/09/2010 03/20/2011 Inactive Clonidine 0.2 mg Tab RxNorm: 210617 1 Tablet(s) PO TID 01/13/201009/2009 Inactive Alprazolam 0.5 mg Tab RxNorm: 665706 1 Tablet(s) PO BID PRN 010 01/12/2010 Inactive Hydrocodone-Acetaminophen 10 mg-750 mg Tab RxNorm: 849077 1 Tablet(s) PO Q4H PRN 01/13/2010 01/12/2010 Inactive ANGELIQ 1 mg-0.5 mg Tab RxNorm: 0753703 1 Tablet(s) PO QD 12/27/2009 01/23/2010 Inactive Lasix 40 mg Tab RxNorm: 805855 1 Tablet(s) PO QAM 12/14/2009 06/11/20 10 Inactive Vitamin B12 1000mcg Tablet RxNorm: 1 Tablet(s) PO QD No Start Date Active cyclobenzaprine 10 mg tablet RxNorm: 949540 1 Tablet(s) PO TID as needed DO NOT USE WITH BACLOFEN No Start Date Active Vitamin D 5,000 unit Tab RxNorm: 1 Tablet(s) PO QD No Start Date Active vitamin E (dl, acetate) 400 unit Cap RxNorm: 286462 1 Capsule(s ) PO QD No Start Date Active baclofen 10 mg tablet RxNorm: 709341 1 Tablet(s) PO TID as needed for muscle spasm No Start Date Active Benadryl 25 mg Cap RxNorm: 8767430 Capsule(s) PO PRN No Start Date Inactive amitriptyline 100 mg tablet RxNorm: 456444 1 Tablet(s) PO QHS No St art Date 11/27/2016 Inactive Zithromax Z-Dustin 250 mg tablet RxNorm: 403378 Tablet(s) PO as di rected No Start Date 07/22/2013 Inactive Klor-Con 8 mEq tablet,extended release RxNorm: 991803 1 Tablet( s) PO BID No Start Date 07/28/2012 Inactive scopolamine 1.5 mg 72 hr Transderm Patch RxNorm: 259805 Application TD Q72H for motion sickness No Start Date 05/25/2013 Inactive Klonopin 1 mg tablet RxNorm: 962816 1-2 Tablet(s) PO QHS as nee ded for sleep No Start Date 06/20/2015 Inactive Klor-Con M20 mEq tablet,extended release RxNorm: 599420 2 Tablet(s) PO BID to use with lasix No Start Date 11/11/2013 Inactive Bystolic 5 mg tablet RxNorm: 216138 1 Tablet(s) PO QD No Start Date 1 Inactive Bystolic 10 mg tablet RxNorm: 711599 1 Tablet(s) PO BID No Start Da te 07/06/2015 Inactive Premarin 1.25 mg Tab RxNorm: 939937 Tablet(s) PO 2 M-W-F, and 1 Jx-Hu-Cln-Sun No Start Date 05/03/2010 Inactive baclofen 20 mg tablet RxNorm: 100951 1 Tablet(s) PO TID as needed for muscle spasm No Start Date 07/22/2015 Inactive hydrocodone-acetaminophen 7.5 mg-650 mg Tab RxNorm: 036395 1 Tablet(s) PO Q4H as needed for pain No Start Date 03/20/2011 Inactive albuterol sulfate 1.25 mg/3 mL Neb Solution RxNorm: 113396 1 Unit Dose INH Q4H 2boxes No Start Date 09/06/2015 Inactive Butrans 20 mcg/hour Transderm Patch RxNorm: 808498 1 TD WEEKLY apply to skin weekly after removing previous. No Start Date 07/22/2013 Inactive Medrol (Dustin) 4 mg tablets in a dose pack RxNorm: 636207 Tablet(s) PO As Directed No Start Date 07/30/2016 Inactive hydrocodone-acetaminophen 10 mg-325 mg Tab RxNorm: 0813462 1-2 Tablet(s) PO TID as needed for pain No Start Date 03/19/2011 Inactive Klonopin 1 mg tablet RxNorm: 620858 1 Tablet(s) PO QHS No Start Date 02/28/2016 Inactive honey topical RxNorm: topical No Start Date 06/16/2018 Inactive Clonidine 0.2 mg Tab RxNorm: 797639 1 Tablet(s) PO TID No Start Date 01/12/2010 Inactive ketorolac 10 mg tablet RxNorm: 077934 1 Tablet(s) PO Q8H No Start D ate 03/18/2012 Inactive as needed for headache Singulair 10 mg Tab RxNorm: 520785 1 Tablet(s) PO QD No Start Date Inactive Premarin 1.25 mg Tab RxNorm: 661979 1 Tablet(s) PO QD No Start Date 1 Inactive Flonase 50 mcg/Actuation Nasal [place] RxNorm: 3714812 1 [place] CECELIA AL BID No Start Date 03/18/2012 Inactive Terbinafine 250 mg Tab RxNorm: 683957 1 Tablet(s) PO QD No Start Da te 04/03/2010 Inactive Fexofenadine 180 mg Tab RxNorm: 0597537 1 Tablet(s) PO QD No Start Date 09/06/2015 Inactive baclofen 20 mg tablet RxNorm: 525933 1 Tablet(s) PO TID as needed N o Start Date 05/25/2014 Inactive Diovan 160 mg Tab RxNorm: 706991 1 Tablet(s) PO QD No Start Date 09/12 Inactive mupirocin 2 % topical ointment RxNorm: 853142 1 Application TOP QID No Start Date 04/25/2016 Inactive ZOFRAN ODT 4 mg Tab, Rapid Dissolve RxNorm: 728458 1 Tablet(s) PO Q4H No Start Date 03/18/2012 Inactive as needed for nausea and vomiting Alprazolam 0.5 mg Tab RxNorm: 661843 1 Tablet(s) PO BID PRN No Star t Date 01/12/2010 Inactive cyclobenzaprine 10 mg tablet RxNorm: 304350 1 Tablet(s) PO TID as needed for muscle spasm No Start Date 10/08/2017 Inactive Albuterol 0.083% Aerosol Solution RxNorm: 1 Appl ication INH Q4H Use one ampule every 4 hrs with nebulizer as needed for shortness of breath. No Start Date 10/09/2010 Inactive lorazepam 1 mg tablet RxNorm: 480146 1 1/2 Tablet(s) PO QHS No Star t Date 02/02/2016 Inactive Melatonin 3 mg Tab RxNorm: 900460 Tablet(s) PO PRN No Start Date 07/11 Inactive Medrol (Dustin) 4 mg Tabs in a Dose Pack RxNorm: 421293 Tablet(s) PO N o Start Date 11/28/2010 Inactive lorazepam 1 mg tablet RxNorm: 934181 1 Tablet(s) PO QHS as need ed for sleep No Start Date 01/30/2016 Inactive hydrocodone-acetaminophen 10 mg-325 mg Tab RxNorm: 2218194 1-2 Tablet(s) PO QID as needed for severe pain No Start Date 03/24/2012 Inactive celecoxib 200 mg capsule RxNorm: 014692 1 Capsule(s) PO BID No Star t Date 06/26/2019 Inactive amlodipine 5 mg-benazepril 20 mg capsule RxNorm: 622149 1 Capsu le(s) PO QD No Start Date 04/10/2017 Inactive Bystolic 20 mg tablet RxNorm: 818041 1/2 Tablet(s) PO QAM No Start Date 01/23/2016 Inactive Bystolic 20 mg tablet RxNorm: 684541 1 Tablet(s) PO QAM No Start Da te 04/25/2016 Inactive Ambien 10 mg Tab RxNorm: 632572 1 Tablet(s) PO QHS No Start Date 05/11 Inactive Klor-Con 8 mEq Tab RxNorm: 857181 1 Tablet(s) PO QD when takes lasix No Start Date 03/06/2010 Inactive aspirin 81 mg tablet RxNorm: 250255 1 Tablet(s) PO QD No Start Date 0 01/29/2018 Inactive hydrocodone-acetaminophen 10 mg-325 mg Tab RxNorm: 2265368 1-2 T ablet(s) PO QID No Start Date 01/10/2012 Inactive Bystolic 10 mg tablet RxNorm: 963270 1 Tablet(s) PO QAM take one daily in the morning. No Start Date 05/28/2013 Inactive nystatin 100,000 unit/mL Oral Susp RxNorm: 343356 5 Milliliter( s) PO QID No Start Date 03/18/2012 Inactive swish and spit scopolamine 1.5 mg 72 hr Transderm Patch RxNorm: 728553 1 Unit Dose TD Q72H for motion sickness No Start Date 12/23/2013 Inactive Hydrocodone-Acetaminophen 10 mg-750 mg Tab RxNorm: 751123 1 Tablet(s) PO Q4H PRN No Start Date 01/12/2010 Inactive Soma 350 mg tablet RxNorm: 409270 1 Tablet(s) PO TID as needed for spasm No Start Date 01/12/2013 Inactive Soma 350 mg Tab RxNorm: 650130 1 Tablet(s) PO TID for spasm No Star t Date 01/31/2012 Inactive Co Q-10 400 mg capsule RxNorm: 763022 1 Capsule(s) PO QD No Start D ate 01/21/2019 Inactive nystatin 100,000 unit/gram topical cream RxNorm: 824664 Applica tion TOP BID No Start Date 03/22/2015 Inactive Exforge 5 mg-160 mg Tab RxNorm: 950972 1 Tablet(s) PO QD No Start D ate 10/09/2010 Inactive Hydrocodone-Acetaminophen 7.5 mg-650 mg Tab RxNorm: 436851 1 Ta blet(s) PO Q4H No Start Date 03/07/2010 Inactive Robaxin-750 750 mg Tab RxNorm: 113003 1-2 Tablet(s) PO TID prn spasm No Start Date 05/21/2011 Inactive amlodipine 5 mg tablet RxNorm: 752510 1 Tablet(s) PO QHS No Start D ate 09/29/2015 Inactive oxycodone-acetaminophen 10 mg-325 mg tablet RxNorm: 3925934 1-2 Tablet(s) PO Q6H No Start Date 06/16/2018 Inactive Triamterene-Hydrochlorothiazide 75 mg-50 mg Tab RxNorm: 3108 18 1 Tablet(s) PO QD No Start Date 02/08/2010 Inactive Alprazolam 0.5 mg Tab RxNorm: 098748 2 Tablet(s) PO QD prn No Start Date 03/07/2010 Inactive Bystolic 20 mg tablet RxNorm: 726234 1 Tablet(s) PO QAM No Start Da te 08/17/2015 Inactive ketorolac 10 mg tablet RxNorm: 131708 1 Tablet(s) PO QID prn he adache No Start Date 07/17/2012 Inactive acyclovir 800 mg Tab RxNorm: 443379 1 Tablet(s) PO BID No Start Date 03/18/2012 Inactive duloxetine 60 mg capsule,delayed release RxNorm: 673714 1 Capsu le(s) PO QD No Start Date 09/29/2015 Inactive Norvasc 5 mg tablet RxNorm: 629603 1 Tablet(s) PO QHS No Start Date 1 10/18/2014 Inactive promethazine 25 mg tablet RxNorm: 325291 1 Tablet(s) PO Q8H use sparingly No Start Date 07/22/2013 Inactive alprazolam 0.5 mg tablet RxNorm: 366151 3 Tablet(s) PO QHS No Start Date 06/06/2015 Inactive Lunesta 3 mg tablet RxNorm: 347159 1 Tablet(s) PO QHS No Start Date 0 09/20/2017 Inactive hydrocodone-acetaminophen 10 mg-325 mg Tab RxNorm: 0067921 1-2 Tablet(s) PO TID as needed for pain No Start Date 12/10/2011 Inactive Coricidin HBP Cough & Cold 4 mg-30 mg Tab RxNorm: 1128749 Tablet (s) PO PRN No Start Date 10/09/2010 Inactive Bactroban 2 % Ointment RxNorm: 273887 Application TOP QID to so res No Start Date 02/22/2012 Inactive Flonase 50 mcg/actuation Nasal [place] RxNorm: 775653 2 [place] QHS No Start Date 03/03/2014 Inactive Medication Administered No Medication Administered data Immunizations Vaccine Codes Date Status Tetanus, Diptheria, Pertussis CVX: 115 02/27/2014 Results Observation Observation Code Item Item Code Result Date S ervice Location COMPLETE BLOOD COUNT [id number] WBC 10.7 10e9/L 018 Unknown COMPLETE BLOOD COUNT [id number] RBC 4.59 10e12/L 2017 Unknown COMPLETE BLOOD COUNT [id number] HEMOGLOBIN 14.8 g/dL 12/11/19 18 Unknown COMPLETE BLOOD COUNT [id number] HEMATOCRIT 44.9 % 12/11/19 18 Unknown COMPLETE BLOOD COUNT [id number] MCV 97.8 fL 8 Unknown COMPLETE BLOOD COUNT 9790921 MCH 32.2 pg 8 Unknown COMPLETE BLOOD COUNT 7766545 MCHC 33.0 g/dL 8 Unknown COMPLETE BLOOD COUNT 7932589 PLATELET COUNT 261 10e9/L 10/2017 Unknown COMPLETE BLOOD COUNT 8802108 Mean Plt Volume 9.5 fL 10/2017 Unknown COMPLETE BLOOD COUNT [id number] Neut Auto 59.9 % 8 Unknown COMPLETE BLOOD COUNT [id number] Lymph Auto 27.4 % 12/11/19 18 Unknown COMPLETE BLOOD COUNT 2842741 [place] Auto 8.2 % 8 Unknown COMPLETE BLOOD COUNT 6296760 RDW 13.3 % 8 Unknown COMPLETE BLOOD COUNT 8812313 Eos Auto 4.1 % 8 Unknown COMPLETE BLOOD COUNT 5326163 Baso Auto 0.4 % 8 Unknown COMPLETE BLOOD COUNT [id number] Neutrophil Abs 6.41 10e9/L Unknown COMPLETE BLOOD COUNT [id number] Lymphocyte Abs 2.93 10e9/L Unknown COMPLETE BLOOD COUNT 1176945 Monocyte Abs 0.88 10e9/L 10/2017 Unknown COMPLETE BLOOD COUNT [id number] Eosinophil Abs 0.44 10e9/L Unknown COMPLETE BLOOD COUNT [id number] Basophil Abs 0.04 10e9/L 10/2017 Unknown COMPLETE BLOOD COUNT 2487698 RDW-SD 46.2 fL 8 Unknown THYROID STIMULATING HORMONE 51174 TSH 4.015 uIU/mL 12/10/2017 Unknown COMPREHENSIVE METABOLIC 95912 AST 25 U/L 2017 Unknown COMPREHENSIVE METABOLIC 38945 ALT 17 U/L 2017 Unknown COMPREHENSIVE METABOLIC 51570 BUN 19 mg/dL 2017 Unknown COMPREHENSIVE METABOLIC 67448 ALBUMIN 4.0 g/dL 2017 Unknown COMPREHENSIVE METABOLIC 39883 CHLORIDE 91 mmol/L 2017 Unknown COMPREHENSIVE METABOLIC 96406 Bili Total 0.5 mg/dL 12/10 Unknown COMPREHENSIVE METABOLIC 66132 ALK PHOS 75 U/L 2017 Unknown COMPREHENSIVE METABOLIC 04101 SODIUM 136 mmol/L 12/10 Unknown COMPREHENSIVE METABOLIC 50564 CREATININE 1.05 mg/dL 10/2017 Unknown COMPREHENSIVE METABOLIC 14050 CALCIUM 8.9 mg/dL 2017 Unknown COMPREHENSIVE METABOLIC 68791 POTASSIUM 3.4 mmol/L 12/10 Unknown COMPREHENSIVE METABOLIC 20209 Total Protein 6.5 g/dL Unknown COMPREHENSIVE METABOLIC 93227 Glucose 138 mg/dL 2017 Unknown COMPREHENSIVE METABOLIC 13240 Bicarbonate 35 mmol/L 10/2017 Unknown COMPREHENSIVE METABOLIC 66293 AGAP 10 mmol/L 2017 Unknown MEAN GLUC 2923025 Calc Mean Gluc 171 mg/dL 12/10/2017 Unkn own LIPID GROUP 00330 Cholesterol 204 mg/dL 12/10/2017 Unkno wn LIPID GROUP 24997 Triglyceride 411 mg/dL 12/10/2017 Unkn own LIPID GROUP 60816 HDL CHOLESTEROL 50 mg/dL 12/10/2017 U nknown LIPID GROUP 99204 Chol/HDL Ratio 4.08 ratio 12/10/2017 U nknown LIPID GROUP 23088 NON-HDL Chol 154 mg/dL 12/10/2017 Unkn own LIPID GROUP 82721 LDL Cholesterol N/A Trig >400 018 Unknown GLYCOSYLATED HEMOGLOBIN TEST 21494 Hgb A1c 83833-5 7.6 % 0 12/10/2017 Unknown FREE T4 35130 T4 Free 1.40 ng/dL 12/10/2017 Unknown GFR CALC 9204747 GFR Non Afr Amr 55 mL/min 12/10/2017 Unk nown GFR CALC 3086858 GFR Afr Amr >60 mL/min 12/10/2017 Unknow n GFR CALC 5245113 GFR Non Afr Amr 48 mL/min 06/28/2017 Unk nown GFR CALC 6830949 GFR Afr Amr 59 mL/min 06/28/2017 Unknown COMPREHENSIVE METABOLIC 92861 AST 32 U/L 2016 Unknown COMPREHENSIVE METABOLIC 72362 ALT 22 U/L 2016 Unknown COMPREHENSIVE METABOLIC 59511 BUN 23 mg/dL 2016 Unknown COMPREHENSIVE METABOLIC 30487 ALBUMIN 4.7 g/dL 2016 Unknown COMPREHENSIVE METABOLIC 72396 CHLORIDE 89 mmol/L 2016 Unknown COMPREHENSIVE METABOLIC 16147 Bili Total 0.5 mg/dL 06/28 Unknown COMPREHENSIVE METABOLIC 76629 ALK PHOS 90 U/L 2016 Unknown COMPREHENSIVE METABOLIC 76017 SODIUM 135 mmol/L 06/28 Unknown COMPREHENSIVE METABOLIC 60647 CREATININE 1.18 mg/dL 06/10 Unknown COMPREHENSIVE METABOLIC 06892 CALCIUM 9.7 mg/dL 2016 Unknown COMPREHENSIVE METABOLIC 43186 POTASSIUM 3.5 mmol/L 06/28 Unknown COMPREHENSIVE METABOLIC 77369 Total Protein 7.7 g/dL Unknown COMPREHENSIVE METABOLIC 01420 Glucose 129 mg/dL 2016 Unknown COMPREHENSIVE METABOLIC 38580 Bicarbonate 34 mmol/L 06/10 Unknown COMPREHENSIVE METABOLIC 40516 AGAP 12 mmol/L 2016 Unknown LIPID GROUP 69788 HDL TEST 64 MG/DL 08/27/2014 Unknown LIPID GROUP 86395 TRIG 222 MG/DL 08/27/2014 Unknown LIPID GROUP 24719 TEST LDL 209 MG/DL 08/27/2014 Unknown LIPID GROUP 68453 CHOL 317 MG/DL 08/27/2014 Unknown LIPID GROUP 35737 RCHOL/HDL 4.95 RATIO 08/27/2014 Unknow n LIPID GROUP 56915 NON-HDL CH 253 MG/DL 08/27/2014 Unknow n GFR CALC 4559696 GFR AA >60 ML/MIN 08/27/2014 Unknown GFR CALC 7293886 GFR NON-AA >60 ML/MIN 08/27/2014 Unknown COMPLETE BLOOD COUNT 0366842 WBC 7.0 10e9/L 08/27/20 14 Unknown COMPLETE BLOOD COUNT 5617918 RBC 4.98 10e12/L 2013 Unknown COMPLETE BLOOD COUNT 4085681 HGB 15.6 g/dL 4 Unknown COMPLETE BLOOD COUNT 5153984 HCT DET 46.5 % 4 Unknown COMPLETE BLOOD COUNT 6680853 MCV 93.4 fL 4 Unknown COMPLETE BLOOD COUNT 3596782 MCH 31.3 pg 4 Unknown COMPLETE BLOOD COUNT 2857571 MCHC 33.5 g/dL 4 Unknown COMPLETE BLOOD COUNT 3635095 PLT 309 10e9/L 08/27/20 14 Unknown COMPLETE BLOOD COUNT 7094303 MPV 9.6 fL 4 Unknown COMPLETE BLOOD COUNT 9220610 CADEN % 57.2 % 4 Unknown COMPLETE BLOOD COUNT 7055822 LY % 33.2 % 4 Unknown COMPLETE BLOOD COUNT 0495625 MON % 7.3 % 4 Unknown COMPLETE BLOOD COUNT 9008134 EOS % 2.0 % 4 Unknown COMPLETE BLOOD COUNT 5256817 BASO % 0.3 % 4 Unknown COMPLETE BLOOD COUNT 7774576 RDW 13.7 % 4 Unknown COMPLETE BLOOD COUNT 8686117 ABS CADEN 4.00 10e9/L 014 Unknown COMPLETE BLOOD COUNT 3886351 ABS LYMPH 2.32 10e9/L 014 Unknown COMPLETE BLOOD COUNT 6377140 ABS MONO 0.51 10e9/L 014 Unknown COMPLETE BLOOD COUNT [id number] ABS EOS 0.14 10e9/L 014 Unknown COMPLETE BLOOD COUNT 3322953 ABS BASO 0.02 10e9/L 014 Unknown COMPLETE BLOOD COUNT 0928786 RDW-SD 45.1 fL 4 Unknown COMPREHENSIVE METABOLIC 42120 AST 13 U/L 2013 Unknown COMPREHENSIVE METABOLIC 43437 ALT 11 IU/L 2013 Unknown COMPREHENSIVE METABOLIC 33920 BUN 23 MG/DL 2013 Unknown COMPREHENSIVE METABOLIC 52843 ALBUMIN 4.4 GM/DL 2013 Unknown COMPREHENSIVE METABOLIC 35765 CHLORIDE 99 MMOL/L 2013 Unknown COMPREHENSIVE METABOLIC 60981 BILI TOT 0.5 MG/DL 2013 Unknown COMPREHENSIVE METABOLIC 57834 ALK PHOS 56 U/L 2013 Unknown COMPREHENSIVE METABOLIC 07710 SODIUM 138 MMOL/L 08/27 Unknown COMPREHENSIVE METABOLIC 94242 CREATININE 0.95 MG/DL 08/10 Unknown COMPREHENSIVE METABOLIC 11557 CALCIUM 9.8 MG/DL 2013 Unknown COMPREHENSIVE METABOLIC 20728 POTASSIUM 3.5 MMOL/L 08/27 Unknown COMPREHENSIVE METABOLIC 42547 PROT TOT 6.8 GM/DL 2013 Unknown COMPREHENSIVE METABOLIC 20725 Glucose 90 MG/DL 2013 Unknown COMPREHENSIVE METABOLIC 83467 BICARB 34 MMOL/L 2013 Unknown COMPREHENSIVE METABOLIC 77434 ANION GAP 5 MEQ/L 2013 Unknown LIPASE 86674 LIPASE 11 IU/L 07/21/2014 Unknown AMYLASE 84855 AMYLASE 39 IU/L 07/21/2014 Unknown HEMOGLOBIN A1C (GLYCOSYLATED) 2345949 A1C HPLC 56784-2 6.2 % 03/05/2013 Unknown THYROID STIMULATING HORMONE 15675 TSH 6.986 uIU/ML 03/05/2013 Unknown COMPLETE BLOOD COUNT 2942723 WBC 12.7 10e9/L 013 Unknown COMPLETE BLOOD COUNT 2985537 RBC 4.53 10e12/L 2012 Unknown COMPLETE BLOOD COUNT 8995817 HGB 14.7 g/dL 3 Unknown COMPLETE BLOOD COUNT 5257896 HCT DET 43.1 % 3 Unknown COMPLETE BLOOD COUNT 9978336 MCV 95.1 fL 3 Unknown COMPLETE BLOOD COUNT 5826903 MCH 32.5 pg 3 Unknown COMPLETE BLOOD COUNT 1109612 MCHC 34.1 g/dL 3 Unknown COMPLETE BLOOD COUNT 4996587 PLT 346 10e9/L 03/05/20 13 Unknown COMPLETE BLOOD COUNT 7440123 MPV 9.5 fL 3 Unknown COMPLETE BLOOD COUNT 7229312 CADEN % 67.6 % 3 Unknown COMPLETE BLOOD COUNT 0681470 LY % 22.1 % 3 Unknown COMPLETE BLOOD COUNT [id number] MON % 6.6 % 3 Unknown COMPLETE BLOOD COUNT 0247241 EOS % 3.3 % 3 Unknown COMPLETE BLOOD COUNT 4899138 BASO % 0.4 % 3 Unknown COMPLETE BLOOD COUNT 9754717 RDW 14.0 % 3 Unknown COMPLETE BLOOD COUNT 1907161 ABS CADEN 8.59 10e9/L 013 Unknown COMPLETE BLOOD COUNT 4096160 ABS LYMPH 2.81 10e9/L 013 Unknown COMPLETE BLOOD COUNT 2097621 ABS MONO 0.84 10e9/L 013 Unknown COMPLETE BLOOD COUNT 3307293 ABS EOS 0.42 10e9/L 013 Unknown COMPLETE BLOOD COUNT 6011979 ABS BASO 0.05 10e9/L 013 Unknown COMPLETE BLOOD COUNT 1719537 RDW-SD 46.0 fL 3 Unknown FREE T4 01640 FREE T4 1.14 NG/DL 03/05/2013 Unknown COMPREHENSIVE METABOLIC 94480 AST 17 U/L 2012 Unknown COMPREHENSIVE METABOLIC 59264 ALT 12 IU/L 2012 Unknown COMPREHENSIVE METABOLIC 07279 BUN 24 MG/DL 2012 Unknown COMPREHENSIVE METABOLIC 96081 ALBUMIN 4.2 GM/DL 2012 Unknown COMPREHENSIVE METABOLIC 20039 CHLORIDE 93 MMOL/L 2012 Unknown COMPREHENSIVE METABOLIC 50063 BILI TOT 0.5 MG/DL 2012 Unknown COMPREHENSIVE METABOLIC 88726 ALK PHOS 75 U/L 2012 Unknown COMPREHENSIVE METABOLIC 13157 SODIUM 141 MMOL/L 03/05 Unknown COMPREHENSIVE METABOLIC 55961 CREATININE 1.36 MG/DL 02/09 Unknown COMPREHENSIVE METABOLIC 98301 CALCIUM 9.2 MG/DL 2012 Unknown COMPREHENSIVE METABOLIC 71918 POTASSIUM 3.1 MMOL/L 03/05 Unknown COMPREHENSIVE METABOLIC 39649 PROT TOT 6.9 GM/DL 2012 Unknown COMPREHENSIVE METABOLIC 24782 Glucose 123 MG/DL 2012 Unknown COMPREHENSIVE METABOLIC 73453 BICARB 36 MMOL/L 2012 Unknown COMPREHENSIVE METABOLIC 57307 ANION GAP 12 MEQ/L 2012 Unknown GFR CALC 6684124 GFR AA 51.0L ML/MIN 03/05/2013 Unknow n GFR CALC 1650866 GFR NON-AA 42.0L ML/MIN 03/05/2013 Unkno wn COMPREHENSIVE METABOLIC 50753 AST 14 U/L 2012 Unknown COMPREHENSIVE METABOLIC 78329 ALT 11 IU/L 2012 Unknown COMPREHENSIVE METABOLIC 06424 BUN 16 MG/DL 2012 Unknown COMPREHENSIVE METABOLIC 24636 ALBUMIN 4.2 GM/DL 2012 Unknown COMPREHENSIVE METABOLIC 29832 CHLORIDE 98 MMOL/L 2012 Unknown COMPREHENSIVE METABOLIC 05945 BILI TOT 0.4 MG/DL 2012 Unknown COMPREHENSIVE METABOLIC 60113 ALK PHOS 77 U/L 2012 Unknown COMPREHENSIVE METABOLIC 71134 SODIUM 139 MMOL/L 09/25 Unknown COMPREHENSIVE METABOLIC 02296 CREATININE 0.86 MG/DL 09/10 Unknown COMPREHENSIVE METABOLIC 65241 CALCIUM 9.5 MG/DL 2012 Unknown COMPREHENSIVE METABOLIC 32042 POTASSIUM 3.8 MMOL/L 09/25 Unknown COMPREHENSIVE METABOLIC 95879 PROT TOT 6.8 GM/DL 2012 Unknown COMPREHENSIVE METABOLIC 53355 Glucose 91 MG/DL 2012 Unknown COMPREHENSIVE METABOLIC 92085 BICARB 32 MMOL/L 2012 Unknown COMPREHENSIVE METABOLIC 12463 ANION GAP 9 MEQ/L 2012 Unknown FREE T4 96618 FREE T4 0.98 NG/DL 09/25/2012 Unknown THYROID STIMULATING HORMONE 89560 TSH 1.736 uIU/ML 09/25/2012 Unknown C-REACTIVE PROTEIN (CRP) QUANT 84334 CRP 2.3 MG/DL 09/25/2012 Unknown COMPLETE BLOOD COUNT 5205703 WBC 11.9 10e9/L 013 Unknown COMPLETE BLOOD COUNT 4611428 RBC 4.87 10e12/L 2012 Unknown COMPLETE BLOOD COUNT 8826303 HGB 15.1 g/dL 3 Unknown COMPLETE BLOOD COUNT 3216640 HCT DET 44.8 % 3 Unknown COMPLETE BLOOD COUNT 4188180 MCV 92.0 fL 3 Unknown COMPLETE BLOOD COUNT 9385183 MCH 31.0 pg 3 Unknown COMPLETE BLOOD COUNT 0953569 MCHC 33.7 g/dL 3 Unknown COMPLETE BLOOD COUNT 2536347 PLT 343 10e9/L 09/25/19 13 Unknown COMPLETE BLOOD COUNT 3146103 MPV 9.0 fL 3 Unknown COMPLETE BLOOD COUNT 5926844 CADEN % 68.2 % 3 Unknown COMPLETE BLOOD COUNT 7519941 LY % 22.4 % 3 Unknown COMPLETE BLOOD COUNT 5144900 MON % 6.4 % 3 Unknown COMPLETE BLOOD COUNT 1542985 EOS % 2.7 % 3 Unknown COMPLETE BLOOD COUNT 3394267 BASO % 0.3 % 3 Unknown COMPLETE BLOOD COUNT 0334767 RDW 13.8 % 3 Unknown COMPLETE BLOOD COUNT 9198328 ABS CADEN 8.12 10e9/L 013 Unknown COMPLETE BLOOD COUNT 0264163 ABS LYMPH 2.67 10e9/L 013 Unknown COMPLETE BLOOD COUNT 8773710 ABS MONO 0.76 10e9/L 013 Unknown COMPLETE BLOOD COUNT 7273810 ABS EOS 0.32 10e9/L 013 Unknown COMPLETE BLOOD COUNT 5966774 ABS BASO 0.04 10e9/L 013 Unknown COMPLETE BLOOD COUNT 1523829 RDW-SD 45.6 fL 3 Unknown GFR CALC 1348041 GFR AA >60 ML/MIN 09/25/2012 Unknown GFR CALC 2780822 GFR NON-AA >60 ML/MIN 09/25/2012 Unknown ERYTHROCYTE SEDIMENTATION RATE 73484 ESR 19 MM/HR 05/06/2012 Unknown VITAMIN B 12 FOLIC ACID 93847|89920 VIT B 12 922 PG/ML 04/11 Unknown VITAMIN B 12 FOLIC ACID 32622|86543 FOLIC ACID 13.6 NG/ML Unknown URIC ACID 24307 URIC ACID 7.8 MG/DL 05/06/2012 Unknown COMPLETE BLOOD COUNT 19327 WBC 11.9 10e9/L 012 Unknown COMPLETE BLOOD COUNT 92162 RBC 5.30 10e12/L 2011 Unknown COMPLETE BLOOD COUNT 28080 HGB 16.6 g/dL 2 Unknown COMPLETE BLOOD COUNT 48459 HCT DET 47.2 % 2 Unknown COMPLETE BLOOD COUNT 51230 MCV 89.1 fL 2 Unknown COMPLETE BLOOD COUNT 01995 MCH 31.3 pg 2 Unknown COMPLETE BLOOD COUNT 20658 MCHC 35.2 g/dL 2 Unknown COMPLETE BLOOD COUNT 85904 PLT 362 10e9/L 05/06/20 12 Unknown COMPLETE BLOOD COUNT 63816 MPV 9.4 fL 2 Unknown COMPLETE BLOOD COUNT 97762 CADEN % 68.2 % 2 Unknown COMPLETE BLOOD COUNT 65807 LY % 22.0 % 2 Unknown COMPLETE BLOOD COUNT 36687 MON % 6.9 % 2 Unknown COMPLETE BLOOD COUNT 69579 EOS % 2.6 % 2 Unknown COMPLETE BLOOD COUNT 58163 BASO % 0.3 % 2 Unknown COMPLETE BLOOD COUNT 80061 RDW 12.8 % 2 Unknown COMPLETE BLOOD COUNT 95753 ABS CADEN 8.12 10e9/L 012 Unknown COMPLETE BLOOD COUNT 97174 ABS LYMPH 2.62 10e9/L 012 Unknown COMPLETE BLOOD COUNT 78066 ABS MONO 0.82 10e9/L 012 Unknown COMPLETE BLOOD COUNT 78026 ABS EOS 0.31 10e9/L 012 Unknown COMPLETE BLOOD COUNT 10586 ABS BASO 0.04 10e9/L 012 Unknown COMPLETE BLOOD COUNT 25369 RDW-SD 41.5 fL 2 Unknown GFR CALC 1508169 GFR AA >60 ML/MIN 05/06/2012 Unknown GFR CALC 2783001 GFR NON-AA 58.0L ML/MIN 05/06/2012 Unkno wn FREE T4 25279 FREE T4 1.15 NG/DL 05/06/2012 Unknown THYROID STIMULATING HORMONE 50099 TSH 1.568 uIU/ML 05/06/2012 Unknown COMPREHENSIVE METABOLIC 26181 AST 20 U/L 2011 Unknown COMPREHENSIVE METABOLIC 17079 ALT 12 IU/L 2011 Unknown COMPREHENSIVE METABOLIC 92689 BUN 20 MG/DL 2011 Unknown COMPREHENSIVE METABOLIC 88635 ALBUMIN 4.5 GM/DL 2011 Unknown COMPREHENSIVE METABOLIC 66399 CHLORIDE 91 MMOL/L 2011 Unknown COMPREHENSIVE METABOLIC 37344 BILI TOT 0.4 MG/DL 2011 Unknown COMPREHENSIVE METABOLIC 73688 ALK PHOS 73 U/L 2011 Unknown COMPREHENSIVE METABOLIC 60439 SODIUM 139 MMOL/L 05/06 Unknown COMPREHENSIVE METABOLIC 38518 CREATININE 1.02 MG/DL 04/11 Unknown COMPREHENSIVE METABOLIC 75461 CALCIUM 9.7 MG/DL 2011 Unknown COMPREHENSIVE METABOLIC 22085 POTASSIUM 3.1 MMOL/L 05/06 Unknown COMPREHENSIVE METABOLIC 30797 PROT TOT 7.3 GM/DL 2011 Unknown COMPREHENSIVE METABOLIC 68379 Glucose 118 MG/DL 2011 Unknown COMPREHENSIVE METABOLIC 76666 BICARB 33 MMOL/L 2011 Unknown COMPREHENSIVE METABOLIC 41967 ANION GAP 15 MEQ/L 2011 Unknown Procedures Procedure Codes Date URINALYSIS NONAUTO W/O SCOPE CPT-4: 29935 09/30/2018 MICROALBUMIN QUANTITATIVE CPT-4: 84379 09/30/2018 CEFTRIAXONE SODIUM INJECTION CPT-4: J0696 06/19/2018 THER/PROPH/DIAG INJ SC/IM CPT-4: 09754 06/19/2018 CEFTRIAXONE SODIUM INJECTION CPT-4: J0696 06/17/2018 THER/PROPH/DIAG INJ SC/IM CPT-4: 71319 06/17/2018 THER/PROPH/DIAG INJ SC/IM CPT-4: 19963 05/16/2018 KETOROLAC TROMETHAMINE INJ CPT-4: J1885 05/16/2018 ONDANSETRON HCL INJECTION CPT-4: J2405 05/16/2018 THER/PROPH/DIAG INJ SC/IM CPT-4: 95403 05/16/2018 ROUTINE VENIPUNCTURE CPT-4: 61488 03/20/2018 COMPREHEN METABOLIC PANEL CPT-4: 11692 03/20/2018 DEXAMETHASONE SODIUM PHOS CPT-4: J1100 02/11/2018 THER/PROPH/DIAG INJ SC/IM CPT-4: 89262 02/11/2018 TRIAMCINOLONE ACET INJ NOS CPT-4: J3301 02/11/2018 CEFTRIAXONE SODIUM INJECTION CPT-4: J0696 02/01/2018 THER/PROPH/DIAG INJ SC/IM CPT-4: 68130 02/01/2018 CEFTRIAXONE SODIUM INJECTION CPT-4: J0696 01/30/2018 THER/PROPH/DIAG INJ SC/IM CPT-4: 62029 01/30/2018 ROUTINE VENIPUNCTURE CPT-4: 30832 12/10/2017 ASSAY OF FREE THYROXINE CPT-4: 92495 12/10/2017 ASSAY THYROID STIM HORMONE CPT-4: 35530 12/10/2017 COMPREHEN METABOLIC PANEL CPT-4: 58405 12/10/2017 COMPLETE CBC W/AUTO DIFF WBC CPT-4: 17087 12/10/2017 LIPID PANEL CPT-4: 40137 12/10/2017 A1C HPLC CPT-4: 10128 12/10/2017 CEFTRIAXONE SODIUM INJECTION CPT-4: J0696 12/10/2017 THER/PROPH/DIAG INJ SC/IM CPT-4: 25321 12/10/2017 CEFTRIAXONE SODIUM INJECTION CPT-4: J0696 12/07/2017 THER/PROPH/DIAG INJ SC/IM CPT-4: 68439 12/07/2017 DEXAMETHASONE SODIUM PHOS CPT-4: J1100 12/07/2017 THER/PROPH/DIAG INJ SC/IM CPT-4: 41092 12/07/2017 CEFTRIAXONE SODIUM INJECTION CPT-4: J0696 10/08/2017 THER/PROPH/DIAG INJ SC/IM CPT-4: 76476 10/08/2017 CEFTRIAXONE SODIUM INJECTION CPT-4: J0696 09/21/2017 THER/PROPH/DIAG INJ SC/IM CPT-4: 92046 09/21/2017 CEFTRIAXONE SODIUM INJECTION CPT-4: J0696 09/20/2017 THER/PROPH/DIAG INJ SC/IM CPT-4: 24292 09/20/2017 REMOVAL OF NAIL PLATE CPT-4: 86630 08/29/2017 THER/PROPH/DIAG INJ SC/IM CPT-4: 33486 08/29/2017 TRIAMCINOLONE ACET INJ NOS CPT-4: J3301 08/29/2017 CEFTRIAXONE SODIUM INJECTION CPT-4: J0696 08/29/2017 THER/PROPH/DIAG INJ SC/IM CPT-4: 61316 08/29/2017 DESTRUCT PREMALG LESION (Cryosurgery) CPT-4: 24232 ROUTINE VENIPUNCTURE CPT-4: 75315 06/27/2017 ASSAY OF FREE THYROXINE CPT-4: 20694 06/27/2017 ASSAY THYROID STIM HORMONE CPT-4: 61328 06/27/2017 COMPREHEN METABOLIC PANEL CPT-4: 89090 06/27/2017 COMPLETE CBC W/AUTO DIFF WBC CPT-4: 45508 06/27/2017 EXC TR-EXT B9+REECE 0.5 CM< CPT-4: 74307 01/24/2017 THER/PROPH/DIAG INJ SC/IM CPT-4: 53440 08/02/2016 DEXAMETHASONE SODIUM PHOS CPT-4: J1100 08/02/2016 DESTRUCT PREMALG LESION (Cryosurgery) CPT-4: 21235 EXC TR-EXT B9+REECE 0.5 CM< CPT-4: 11104 08/01/2016 AEROBIC WOUND CULTURE & STN CPT-4: 01948 07/06/2016 CEFTRIAXONE SODIUM INJECTION CPT-4: J0696 05/25/2016 THER/PROPH/DIAG INJ SC/IM CPT-4: 39785 05/25/2016 THER/PROPH/DIAG INJ SC/IM CPT-4: 32716 04/26/2016 DEXAMETHASONE SODIUM PHOS CPT-4: J1100 04/26/2016 CEFTRIAXONE SODIUM INJECTION CPT-4: J0696 04/26/2016 THER/PROPH/DIAG INJ SC/IM CPT-4: 43424 04/26/2016 THER/PROPH/DIAG INJ SC/IM CPT-4: 74636 02/09/2016 TRIAMCINOLONE ACET INJ NOS CPT-4: J3301 02/09/2016 URINALYSIS NONAUTO W/O SCOPE CPT-4: 70334 01/24/2016 URINE CULTURE/ COLONY COUNT CPT-4: 02771 01/24/2016 THER/PROPH/DIAG INJ SC/IM CPT-4: 30942 12/08/2015 TRIAMCINOLONE ACET INJ NOS CPT-4: J3301 12/08/2015 THER/PROPH/DIAG INJ SC/IM CPT-4: 90144 10/07/2015 TRIAMCINOLONE ACET INJ NOS CPT-4: J3301 10/07/2015 DESTRUCT PREMALG LESION (Cryosurgery) CPT-4: 00500 THER/PROPH/DIAG INJ SC/IM CPT-4: 24079 03/16/2015 METHYLPREDNISOLONE 40 MG INJ CPT-4: J1030 03/16/2015 DESTRUCT PREMALG LESION (Cryosurgery) CPT-4: 20406 THER/PROPH/DIAG INJ SC/IM CPT-4: 86397 09/11/2014 METHYLPREDNISOLONE 40 MG INJ CPT-4: J1030 09/11/2014 TRIAMCINOLONE ACET INJ NOS CPT-4: J3301 09/11/2014 CEFTRIAXONE SODIUM INJECTION CPT-4: J0696 09/11/2014 THER/PROPH/DIAG INJ SC/IM CPT-4: 69372 09/11/2014 ROUTINE VENIPUNCTURE CPT-4: 42248 08/27/2014 COMPREHEN METABOLIC PANEL CPT-4: 86871 08/27/2014 COMPLETE CBC W/AUTO DIFF WBC CPT-4: 62501 08/27/2014 LIPID PANEL CPT-4: 89009 08/27/2014 ROUTINE VENIPUNCTURE CPT-4: 68026 07/21/2014 ASSAY OF AMYLASE CPT-4: 56090 07/21/2014 ASSAY OF LIPASE CPT-4: 11049 07/21/2014 THER/PROPH/DIAG INJ SC/IM CPT-4: 27783 07/15/2014 TRIAMCINOLONE ACET INJ NOS CPT-4: J3301 07/15/2014 ROUTINE VENIPUNCTURE CPT-4: 00928 05/14/2014 ASSAY OF FREE THYROXINE CPT-4: 08941 05/14/2014 ASSAY THYROID STIM HORMONE CPT-4: 80177 05/14/2014 COMPREHEN METABOLIC PANEL CPT-4: 91718 05/14/2014 COMPLETE CBC W/AUTO DIFF WBC CPT-4: 19696 05/14/2014 LIPID PANEL CPT-4: 07420 05/14/2014 CEFTRIAXONE SODIUM INJECTION CPT-4: J0696 04/21/2014 THER/PROPH/DIAG INJ SC/IM CPT-4: 92622 04/21/2014 THER/PROPH/DIAG INJ SC/IM CPT-4: 70251 04/21/2014 TRIAMCINOLONE ACET INJ NOS CPT-4: J3301 04/21/2014 THER/PROPH/DIAG INJ SC/IM CPT-4: 60607 03/04/2014 METHYLPREDNISOLONE 40 MG INJ CPT-4: J1030 03/04/2014 TRIAMCINOLONE ACET INJ NOS CPT-4: J3301 03/04/2014 CEFTRIAXONE SODIUM INJECTION CPT-4: J0696 03/04/2014 THER/PROPH/DIAG INJ SC/IM CPT-4: 31117 03/04/2014 TDAP VACCINE 7 YRS/> IM CPT-4: 94651 02/27/2014 IMMUNIZATION ADMIN CPT-4: 12599 02/27/2014 DESTRUCT PREMALG LESION (Cryosurgery) CPT-4: 16586 DESTRUCT PREMALG LES 2-14 CPT-4: 00658 01/13/2014 THER/PROPH/DIAG INJ SC/IM CPT-4: 42156 10/21/2013 METHYLPREDNISOLONE 40 MG INJ CPT-4: J1030 10/21/2013 TRIAMCINOLONE ACET INJ NOS CPT-4: J3301 10/21/2013 CEFTRIAXONE SODIUM INJECTION CPT-4: J0696 08/27/2013 THER/PROPH/DIAG INJ SC/IM CPT-4: 85652 08/27/2013 THER/PROPH/DIAG INJ SC/IM CPT-4: 80979 08/27/2013 METHYLPREDNISOLONE 40 MG INJ CPT-4: J1030 08/27/2013 TRIAMCINOLONE ACET INJ NOS CPT-4: J3301 08/27/2013 THER/PROPH/DIAG INJ SC/IM CPT-4: 34100 06/23/2013 METHYLPREDNISOLONE 40 MG INJ CPT-4: J1030 06/23/2013 TRIAMCINOLONE ACET INJ NOS CPT-4: J3301 06/23/2013 THER/PROPH/DIAG INJ SC/IM CPT-4: 99210 05/26/2013 METHYLPREDNISOLONE 40 MG INJ CPT-4: J1030 05/26/2013 TRIAMCINOLONE ACET INJ NOS CPT-4: J3301 05/26/2013 ROUTINE VENIPUNCTURE CPT-4: 46150 03/05/2013 ASSAY OF FREE THYROXINE CPT-4: 17307 03/05/2013 ASSAY THYROID STIM HORMONE CPT-4: 32263 03/05/2013 COMPREHEN METABOLIC PANEL CPT-4: 70499 03/05/2013 COMPLETE CBC W/AUTO DIFF WBC CPT-4: 52855 03/05/2013 A1C GLYCOSYLATED HEMOGLOBIN TEST CPT-4: 98499 013 DRAIN/INJECT JOINT/BURSA CPT-4: 45243 12/04/2012 METHYLPREDNISOLONE 40 MG INJ CPT-4: J1030 12/04/2012 TRIAMCINOLONE ACET INJ NOS CPT-4: J3301 12/04/2012 CEFTRIAXONE SODIUM INJECTION CPT-4: J0696 11/21/2012 THER/PROPH/DIAG INJ SC/IM CPT-4: 23413 11/21/2012 THER/PROPH/DIAG INJ SC/IM CPT-4: 76763 10/14/2012 METHYLPREDNISOLONE 40 MG INJ CPT-4: J1030 10/14/2012 TRIAMCINOLONE ACET INJ NOS CPT-4: J3301 10/14/2012 URINALYSIS NONAUTO W/O SCOPE CPT-4: 52678 09/27/2012 ROUTINE VENIPUNCTURE CPT-4: 20064 09/25/2012 ASSAY OF FREE THYROXINE CPT-4: 75257 09/25/2012 ASSAY THYROID STIM HORMONE CPT-4: 80808 09/25/2012 COMPREHEN METABOLIC PANEL CPT-4: 38455 09/25/2012 COMPLETE CBC W/AUTO DIFF WBC CPT-4: 91683 09/25/2012 C-REACTIVE PROTEIN CPT-4: 64010 09/25/2012 THER/PROPH/DIAG INJ SC/IM CPT-4: 72387 08/29/2012 METHYLPREDNISOLONE 40 MG INJ CPT-4: J1030 08/29/2012 TRIAMCINOLONE ACET INJ NOS CPT-4: J3301 08/29/2012 DESTRUCT PREMALG LESION (Cryosurgery) CPT-4: 38166 THER/PROPH/DIAG INJ SC/IM CPT-4: 42872 05/06/2012 METHYLPREDNISOLONE 40 MG INJ CPT-4: J1030 05/06/2012 TRIAMCINOLONE ACET INJ NOS CPT-4: J3301 05/06/2012 VITAMIN B 12 FOLIC ACID CPT-4: 85359|07950 05/06/2012 RBC SED RATE AUTOMATED CPT-4: 05570 05/06/2012 ROUTINE VENIPUNCTURE CPT-4: 87889 05/06/2012 ASSAY OF FREE THYROXINE CPT-4: 66051 05/06/2012 ASSAY THYROID STIM HORMONE CPT-4: 54434 05/06/2012 COMPREHEN METABOLIC PANEL CPT-4: 45261 05/06/2012 COMPLETE CBC W/AUTO DIFF WBC CPT-4: 82394 05/06/2012 ASSAY OF BLOOD/URIC ACID CPT-4: 34806 05/06/2012 THER/PROPH/DIAG INJ SC/IM CPT-4: 26023 03/19/2012 KETOROLAC TROMETHAMINE INJ CPT-4: J1885 03/19/2012 KETOROLAC TROMETHAMINE INJ CPT-4: J1885 01/30/2012 THER/PROPH/DIAG INJ SC/IM CPT-4: 98126 01/30/2012 PROMETHAZINE HCL INJECTION CPT-4: J2550 01/30/2012 THER/PROPH/DIAG INJ SC/IM CPT-4: 77732 01/24/2012 METHYLPREDNISOLONE 40 MG INJ CPT-4: J1030 01/24/2012 TRIAMCINOLONE ACET INJ NOS CPT-4: J3301 01/24/2012 THER/PROPH/DIAG INJ SC/IM CPT-4: 91607 09/13/2011 KETOROLAC TROMETHAMINE INJ CPT-4: J1885 09/13/2011 THER/PROPH/DIAG INJ SC/IM CPT-4: 16418 09/13/2011 PROMETHAZINE HCL INJECTION CPT-4: J2550 09/13/2011 CEFTRIAXONE SODIUM INJECTION CPT-4: J0696 07/20/2011 THER/PROPH/DIAG INJ SC/IM CPT-4: 62563 07/20/2011 THER/PROPH/DIAG INJ SC/IM CPT-4: 27191 07/20/2011 METHYLPREDNISOLONE INJECTION CPT-4: J2930 07/20/2011 URINALYSIS NONAUTO W/O SCOPE CPT-4: 23195 05/09/2011 CEFTRIAXONE SODIUM INJECTION CPT-4: J0696 05/09/2011 THER/PROPH/DIAG INJ SC/IM CPT-4: 57714 05/09/2011 THER/PROPH/DIAG INJ SC/IM CPT-4: 45770 05/09/2011 PROMETHAZINE HCL INJECTION CPT-4: J2550 05/09/2011 HYDRATION IV INFUSION INIT CPT-4: 54124 05/09/2011 DESTRUCT PREMALG LESION (Cryosurgery) CPT-4: 72047 DESTRUCT PREMALG LES 2-14 CPT-4: 24827 07/19/2010 REMOVAL OF SKIN TAGS <W/15 CPT-4: 85476 05/30/2010 THER/PROPH/DIAG INJ SC/IM CPT-4: 84018 04/05/2010 CEFTRIAXONE SODIUM INJECTION CPT-4: J0696 04/05/2010 TRIAMCINOLONE ACET INJ NOS CPT-4: J3301 04/05/2010 METHYLPREDNISOLONE 40 MG INJ CPT-4: J1030 04/05/2010 THER/PROPH/DIAG INJ SC/IM CPT-4: 66006 04/05/2010 TRIAMCINOLONE ACET INJ NOS CPT-4: J3301 03/09/2010 METHYLPREDNISOLONE 40 MG INJ CPT-4: J1030 03/09/2010 THER/PROPH/DIAG INJ SC/IM CPT-4: 24355 03/09/2010 THER/PROPH/DIAG INJ SC/IM CPT-4: 48556 03/09/2010 CEFTRIAXONE SODIUM INJECTION CPT-4: J0696 03/09/2010 Vital Signs Date Vital 05/28/2019 Blood Pressure 1: 126/82 Code: 8480-6 BMI: 35.0 Code: 31170-3 Heart Rate 1: 88 bpm Height: 5'4" [...] 1: 128/90 Code: 8480-6 BMI: 37.2 Code: 33677-4 Heart Rate 1: 84 bpm Height: 5'4" Respiratory Rate: 20 bpm SpO2: 95% Tempera ture: 36.6 (C) / 97.8 (F) Weight: 217 lbs 08/27/2018 Blood Pressure 1: 128/88 Code: 8480-6 BMI: 38.3 Code: 15228-7 Heart Rate 1: 84 bpm Height: 5'4" [...] 1: 119/72 Code: 8480-6 BMI: 37.4 Code: 44784-4 Heart Rate 1: 82 bpm Height: 5'4" Respiratory Rate: 12 bpm SpO2: 94% Tempera ture: 35.2 (C) / 95.4 (F) Weight: 218 lbs 12/18/2017 Blood Pressure 1: 128/86 Code: 8480-6 BMI: 37.8 Code: 69417-5 Heart Rate 1: 84 bpm Height: 5'4" [...] 1: 128/82 Code: 8480-6 BMI: 35.5 Code: 46067-3 Heart Rate 1: 84 bpm Height: 5'4" [...] 1: 128/82 Code: 8480-6 BMI: 30.2 Code: 20758-5 Heart Rate 1: 80 bpm Height: 5'4" [...] 1: 128/86 Code: 8480-6 BMI: 32.8 Code: 88307-5 Heart Rate 1: 66 bpm Height: 5'4" Respiratory Rate: 18 bpm Temperature: 36 .3 (C) / 97.3 (F) Weight: 191 lbs 06/23/2013 Blood Pressure 1: 132/94 Code: 8480-6 BMI: 34.0 Code: 67088-6 Heart Rate 1: 84 bpm Height: 5'4" Respiratory Rate: 20 bpm Temperature: 36 .8 (C) / 98.2 (F) Weight: 198 lbs 05/26/2013 Blood Pressure 1: 114/80 Code: 8480-6 BMI: 35.0 Code: 83399-1 Heart Rate 1: 80 bpm Height: 5'4" Respiratory Rate: 20 bpm Temperature: 36 .4 (C) / 97.6 (F) Weight: 204 lbs 04/16/2013 Blood Pressure 1: 114/82 Code: 8480-6 BMI: 36.7 Code: 25296-4 Heart Rate 1: 84 bpm Height: 5'4" Respiratory Rate: 20 bpm Temperature: 36 .7 (C) / 98.0 (F) Weight: 214 lbs 03/05/2013 Blood Pressure 1: 136/90 Code: 8480-6 BMI: 37.1 Code: 73629-3 Heart Rate 1: 84 bpm Height: 5'4" [...] 1: 168/114 Code: 8480-6 BMI: 36.2 Code: 25537-7 Heart Rate 1: 104 bpm Height: 5'4" Respiratory Rate: 20 bpm Temperature: 36 .8 (C) / 98.2 (F) Weight: 211 lbs 11/22/2012 Blood Pressure 1: 128/90 Code: 8480-6 Heart Rate 1: 88 bpm Respiratory Rate: 20 bpm SpO2: 96% Temperature: 36.8 (C) / 98.2 (F) 11/21/2012 Blood Pressure 1: 146/100 Code: 8480-6 BMI: 35.7 Code: 16439-4 Heart Rate 1: 96 bpm Height: 5'4" [...] 1: 138/100 Code: 8480-6 BMI: 35.7 Code: 34628-8 Heart Rate 1: 96 bpm Height: 5'4" Respiratory Rate: 20 bpm Temperature: 36 .8 (C) / 98.2 (F) Weight: 208 lbs 05/06/2012 Blood Pressure 1: 154/102 Code: 8480-6 BMI: 34.7 Code: 36969-2 Heart Rate 1: 116 bpm Height: 5'4" Respiratory Rate: 20 bpm Temperature: 36 .8 (C) / 98.2 (F) Weight: 202 lbs 04/03/2012 Blood Pressure 1: 134/94 Code: 8480-6 BMI: 34.8 Code: 31704-7 Heart Rate 1: 108 bpm Height: 5'4" Respiratory Rate: 20 bpm Temperature: 36 .8 (C) / 98.2 (F) Weight: 203 lbs 03/19/2012 Blood Pressure 1: 148/106 Code: 8480-6 BMI: 35.0 Code: 93518-4 Heart Rate 1: 100 bpm Height: 5'4" Respiratory Rate: 20 bpm Temperature: 36 .6 (C) / 97.9 (F) Weight: 204 lbs 02/22/2012 Blood Pressure 1: 146/94 Code: 8480-6 He art Rate 1: 88 bpm 02/21/2012 Blood Pressure 1: 172/120 Code: 8480-6 B lood Pressure 2: 152/106 Code: 8480-6 Heart Rate 1: 116 bpm 02/20/2012 Blood Pressure 1: 160/100 Code: 8480-6 BMI: 32.0 Code: 73137-8 Heart Rate 1: 84 bpm Height: 5'7" Temperature: 36.5 (C) / 97.7 (F) Weight: 204 lbs 01/30/2012 Blood Pressure 1: 152/110 Code: 8480-6 BMI: 32.0 Code: 97727-2 Heart Rate 1: 116 bpm Height: 5'7" Respiratory Rate: 20 bpm Temperature: 37 .0 (C) / 98.6 (F) Weight: 204 lbs 01/24/2012 Blood Pressure 1: 146/100 Code: 8480-6 BMI: 32.0 Code: 42567-3 Heart Rate 1: 100 bpm Height: 5'7" Respiratory Rate: 20 bpm Temperature: 36 .7 (C) / 98.0 (F) Weight: 204 lbs 01/10/2012 Blood Pressure 1: 156/94 Code: 8480-6 BMI: 32.6 Code: 71414-8 Heart Rate 1: 72 bpm Height: 5'7" Respiratory Rate: 20 bpm Temperature: 36 .8 (C) / 98.2 (F) Weight: 208 lbs 12/11/2011 Blood Pressure 1: 146/100 Code: 8480-6 Heart Rat e 1: 116 bpm Height: 5'7" Respiratory Rate: 20 bpm Temperature: 36.9 (C) / 98.4 (F) We ight: 11/09/2011 Blood Pressure 1: 148/96 Code: 8480-6 BMI: 32.1 Code: 75903-2 Heart Rate 1: 116 bpm Height: 5'7" Respiratory Rate: 20 bpm Temperature: 36 .7 (C) / 98.0 (F) Weight: 205 lbs 09/13/2011 Blood Pressure 1: 126/88 Code: 8480-6 Heart Rate 1: 88 bpm Height: 5'7" Respiratory Rate: 20 bpm Temperature: 36.9 (C) / 98.4 (F) We ight: 08/31/2011 Blood Pressure 1: 118/82 Code: 8480-6 BMI: 32.0 Code: 03261-2 Heart Rate 1: 80 bpm Height: 5'7" Temperature: 36.4 (C) / 97.6 (F) Weight: 204 lbs 07/06/2011 Blood Pressure 1: 128/86 Code: 8480-6 BMI: 30.9 Code: 13296-8 Heart Rate 1: 92 bpm Height: 5'7" Respiratory Rate: 20 bpm Temperature: 36 .9 (C) / 98.4 (F) Weight: 197 lbs 06/06/2011 Blood Pressure 1: 112/74 Code: 8480-6 BMI: 31.0 Code: 55122-7 Heart Rate 1: 72 bpm Height: 5'7" [...] 1: 128/92 Code: 8480-6 BMI: 33.6 Code: 15351-3 Heart Rate 1: 104 bpm Height: 5'4" [...] 02/27/2014 TDAP mole check 01/13/2014 patient stopped peter elias trazadone back pain 12/24/2013 otalgia 11/12/2013 [...] bed, sequela[ICD10: W06.XXXS] María Elena APPIAH DO [facility] CPT-4: 81998 05/28/2019 ([id number]) NURSE/OUTPATIENT VISIT EST Diagnosis: Essential (primary) hypertension[ICD10: I10] María Elena APPIAH DO [facility] CPT-4: 73142 05/19/2019 ([id number]) OFFICE/OUTPATIENT VISIT EST Diagnosis: Essential (primary) hypertension[ICD10: I10] Diagnosis: Type 2 diabetes mellitus with hyperglycemia[ICD10: E11.65] Diagnosis: Intervertebral disc disorders with radiculopathy, 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] Diagnosis: Hormone replacement therapy[ICD10: Z79.890] María Elena APPIAH DO [facility] CPT-4: 71186 01/22/2019 ([id number]) OFFICE/OUTPATIENT VISIT EST Diagnosis: Essential (primary) hypertension[ICD10: I10] Diagnosis: Type 2 diabetes mellitus with hyperglycemia[ICD10: E11.65] María Elena APPIAH DO [facility] CPT-4: 46298 09/30/2018 ([id number]) OFFICE/OUTPATIENT VISIT EST Diagnosis: Pain in left elbow[ICD10: M25.522] Diagnosis: Acute stress reaction[ICD10: F43.0] Diagnosis: Primary insomnia[ICD10: F51.01] Diagnosis: Abnormal weight gain[ICD10: R63.5] María Elena APPIAH [employer] [facility] CPT-4: 58551 08/27/2018 ([id number]) OFFICE/OUTPATIENT VISIT EST Diagnosis: Acute recurrent sinusitis, unspecified[ICD10: J01.91] Diagnosis: Follicular disorder, unspecified[ICD10: L73.9] Diagnosis: Tinea corporis[ICD10: B35.4] María Elena APPIAH DO [facility] CPT-4: 39902 08/09/2018 ([id number]) OFFICE/OUTPATIENT VISIT EST Diagnosis: Tinea corporis[ICD10: B35.4] Diagnosis: Anxiety disorder, unspecified[ICD10: F41.9] Diagnosis: Menopausal and female climacteric states[ICD10: N95.1] María Elena APPIAH DO [facility] CPT-4: 12338 07/22/2018 ([id number]) NURSE/OUTPATIENT VISIT EST Diagnosis: Cellulitis of right toe[ICD10: L03.031] María Elena APPIAH DO [facility] CPT-4: 95675 06/19/2018 ([id number]) OFFICE/OUTPATIENT VISIT EST Diagnosis: Cellulitis of right toe[ICD10: L03.031] Kathleen APPIAH DO [facility] CPT-4: 37053 06/17/2018 ([id number]) OFFICE/OUTPATIENT VISIT EST Diagnosis: Migraine without aura, intractable, without status migrainosus[ICD10: G43.019] Diagnosis: Zoster without complications[ICD10: B02.9] Kathleen APPIAH DO [facility] CPT-4: 11265 05/16/2018 ([id number]) OFFICE/OUTPATIENT VISIT EST Diagnosis: Cellulitis of right lower limb[ICD10: L03.115] Kathleen APPIAH DO [facility] CPT-4: 55904 03/20/2018 ([id number]) OFFICE/OUTPATIENT VISIT EST Diagnosis: Cellulitis of right lower limb[ICD10: L03.115] Kathleen APPIAH DO [facility] CPT-4: 72380 03/18/2018 ([id number]) OFFICE/OUTPATIENT VISIT EST Diagnosis: Cellulitis of right lower limb[ICD10: L03.115] Kathleen APPIAH DO [facility] CPT-4: 36211 03/15/2018 ([id number]) OFFICE/OUTPATIENT VISIT EST Diagnosis: Acute sinusitis, unspecified[ICD10: J01.90] Kathleen APPIAH DO [facility] CPT-4: 50370 02/11/2018 ([id number]) NURSE/OUTPATIENT VISIT EST Diagnosis: Otitis media, unspecified, right ear[ICD10: H66.91] María Elena APPIAH DO [facility] CPT-4: 52087 02/01/2018 ([id number]) OFFICE/OUTPATIENT VISIT EST Diagnosis: Acute suppurative otitis media without spontaneous rupture of ear drum, left ear[ICD10: H66.002] Diagnosis: Abnormal weight gain[ICD10: R63.5] Diagnosis: Intervertebral disc disorders with radiculopathy, 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] Kathleen APPIAH DO [facility] CPT-4: 99 214 01/30/2018 ([id number]) PREV VISIT EST AGE 40-64 Diagnosis: Encounter for general adult medical examination without abnormal findings[ICD10: Z00.00] Diagnosis: Essential (primary) hypertension[ICD10: I10] Diagnosis: Mixed hyperlipidemia[ICD10: E78.2] Diagnosis: Type 2 diabetes mellitus with hyperglycemia[ICD10: E11.65] Diagnosis: 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] María Elena APPIAH [facility] CPT-4: 46943 12/18/2017 ([id number]) OFFICE/OUTPATIENT VISIT EST Diagnosis: Cellulitis of right toe[ICD10: L03.031] Diagnosis: Mixed hyperlipidemia[ICD10: E78.2] Diagnosis: Essential (primary) hypertension[ICD10: I10] Diagnosis: Hyperglycemia, unspecified[ICD10: R73.9] Diagnosis: Nontoxic goiter, 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] María Elena APPIAH [facility] CPT-4: 93811 12/10/2017 ([id number]) OFFICE/OUTPATIENT VISIT EST Diagnosis: Cellulitis of right toe[ICD10: L03.031] Diagnosis: Acute sinusitis, unspecified[ICD10: J01.90] Kathleen APPIAH [employer] [facility] CPT-4: 30378 12/07/2017 OFFICE/OUTPATIENT VISIT EST Diagnosis: Acute maxillary sinusitis, unspecified[ICD10: J01.00] Kathleen APPIAH [employer] [facility] CPT-4: 35730 10/08/2017 ([id number]) OFFICE/OUTPATIENT VISIT EST Diagnosis: Cellulitis of left toe[ICD10: L03.032] María Elena MARIN Fabiola APPIAH [employer] [facility] CPT-4: 62632 09/21/2017 ([id number]) OFFICE/OUTPATIENT VISIT EST Diagnosis: Insomnia, unspecified[ICD10: G47.00] Diagnosis: Major depressive disorder, single episode, unspecified[ICD10: F32.9] Diagnosis: Anxiety disorder, unspecified[ICD10: F41.9] Diagnosis: Cellulitis of left toe[ICD10: L03.032] Diagnosis: Snoring[ICD10: R06.83] Kathleen APPIAH DO [facility] CPT-4: 76867 09/20/2017 ([id number]) OFFICE/OUTPATIENT VISIT EST Diagnosis: Cellulitis of left toe[ICD10: L03.032] María Elena Waymindimaryjane APPAIH [facility] CPT-4: 98912 07/19/2017 OFFICE/OUTPATIENT VISIT EST Diagnosis: Chronic sinusitis, unspecified[ICD10: J32.9] Diagnosis: Generalized hyperhidrosis[ICD10: R61] Kathleen APPIAH [facility] CPT-4: 09597 06/27/2017 ([id number]) OFFICE/OUTPATIENT VISIT EST Diagnosis: Intervertebral disc disorders with radiculopathy, 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] Diagnosis: Primary insomnia[ICD10: F51.01] Diagnosis: Other fatigue[ICD10: R53.83] María Elena APPIAH [facility] CPT-4: 78260 04/10/2017 ([id number]) OFFICE/OUTPATIENT VISIT EST Diagnosis: Primary insomnia[ICD10: F51.01] Diagnosis: Localized edema[ICD10: R60.0] Diagnosis: 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] María Elena APPIAH [facility] CPT-4: 76626 12/13/2016 ([id number]) OFFICE/OUTPATIENT VISIT EST Diagnosis: Primary insomnia[ICD10: F51.01] Diagnosis: Cyanosis[ICD10: R23.0] María Elena Waymindimaryjane Bazzi [facility] CPT-4: 94947 11/01/2016 ([id number]) PREV VISIT EST AGE 40-64 Diagnosis: Encounter for gynecological examination (general) (routine) without abnormal findings[ICD10: Z01.419] Diagnosis: Encounter for routine child health examination without abnormal findings[ICD10: Z00.129] María Elena APPIAH DO [facility] CPT-4: 73838 10/17/2016 ([id number]) OFFICE/OUTPATIENT VISIT EST Diagnosis: Other seasonal allergic rhinitis[ICD10: J30.2] María Elena APPIAH DO [facility] CPT-4: 73653 10/10/2016 ([id number]) OFFICE/OUTPATIENT VISIT EST Diagnosis: Pain in left arm[ICD10: M79.602] Diagnosis: Contact with and (suspected) exposure to potentially hazardous body fluids[ICD10: Z77.21] Diagnosis: 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, 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] Diagnosis: Unspecified open wound, right foot, sequela[ICD10: S91.301S] María Elena APPIAH DO [facility] CPT-4: 19881 09/19/2016 ([id number]) OFFICE/OUTPATIENT VISIT EST Diagnosis: Chronic sinusitis, unspecified[ICD10: J32.9] Diagnosis: Allergic rhinitis due to pollen[ICD10: J30.1] María Elena APPIAH [facility] CPT-4: 98269 08/24/2016 ([id number]) OFFICE/OUTPATIENT VISIT EST Diagnosis: Acute bronchitis, unspecified[ICD10: J20.9] María Elena APPIAH DO [facility] CPT-4: 02791 08/16/2016 ([id number]) OFFICE/OUTPATIENT VISIT EST Diagnosis: Otitis media, unspecified, right ear[ICD10: H66.91] Diagnosis: Acute bronchitis, unspecified[ICD10: J20.9] María Elena APPIAH DO [facility] CPT-4: 68526 08/10/2016 ([id number]) OFFICE/OUTPATIENT VISIT EST Diagnosis: Acute recurrent sinusitis, unspecified[ICD10: J01.91] Diagnosis: Allergic rhinitis due to pollen[ICD10: J30.1] María Elena APPIAH DO [facility] CPT-4: 46894 08/02/2016 ([id number]) OFFICE/OUTPATIENT VISIT EST Diagnosis: Pain in unspecified joint[ICD10: M25.50] María Elena APPIAH DO [facility] CPT-4: 43248 07/27/2016 OFFICE/OUTPATIENT VISIT EST Diagnosis: 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] Diagnosis: Acute recurrent sinusitis, unspecified[ICD10: J01.91] Diagnosis: Other fatigue[ICD10: R53.83] Diagnosis: Primary insomnia[ICD10: F51.01] Diagnosis: Pain in unspecified joint[ICD10: M25.50] María Elena APPIAH DO [employer] CPT-4: 55704 07/20/2016 ([id number]) OFFICE/OUTPATIENT VISIT EST Diagnosis: Blister (nonthermal), left great toe, initial encounter[ICD10: S90.422A] Loan APPIAH [employer] [facility] CPT-4: 15392 ([id number]) OFFICE/OUTPATIENT VISIT EST Diagnosis: Acute recurrent sinusitis, unspecified[ICD10: J01.91] María Elena APPIAH [facility] CPT-4: 41223 05/25/2016 ([id number]) OFFICE/OUTPATIENT VISIT EST Diagnosis: Acute sinusitis, unspecified[ICD10: J01.90] María Elena APPIAH DO [facility] CPT-4: 78010 04/26/2016 ([id number]) OFFICE/OUTPATIENT VISIT EST Diagnosis: Flushing[ICD10: R23.2] Diagnosis: Primary insomnia[ICD10: F51.01] María Elena APPIAH DO [facility] CPT-4: 26131 03/02/2016 ([id number]) OFFICE/OUTPATIENT VISIT EST Diagnosis: Other seasonal allergic rhinitis[ICD10: J30.2] Loan APPIAH [employer] [facility] CPT-4: 02120 02/09/2016 ([id number]) OFFICE/OUTPATIENT VISIT EST Diagnosis: Primary insomnia[ICD10: F51.01] Diagnosis: Urinary tract infection, site not specified[ICD10: N39.0] María Elena APPIAH [employer] [facility] CPT-4: 29235 01/24/2016 ([id number]) OFFICE/OUTPATIENT VISIT EST Diagnosis: Other specified disorders of Eustachian tube, bilateral[ICD10: H69.83] Diagnosis: Allergic rhinitis, unspecified[ICD10: J30.9] Loan ELLISLINE Fabiola APPIAH [facility] CPT-4: 91610 12/23/2015 ([id number]) OFFICE/OUTPATIENT VISIT EST Diagnosis: Acute recurrent sinusitis, unspecified[ICD10: J01.91] Diagnosis: 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] Diagnosis: Allergic rhinitis, unspecified[ICD10: J30.9] María Elnea MONTEROQUELINE AlanJj TD [facility] CPT-4: 09784 12/08/2015 ([id number]) OFFICE/OUTPATIENT VISIT EST Diagnosis: Allergic rhinitis, unspecified[ICD10: J30.9] Diagnosis: Pain in unspecified joint[ICD10: M25.50] María Elena Seamusabbey MONTEROMARÍA ELENA AlanJj [facility] C[facility]: 51014 10/07/2015 ([id number]) OFFICE/OUTPATIENT VISIT EST Diagnosis: Essential (primary) hypertension[ICD10: I10] María Elena JUARES AlanJj [facility] CPT-[facility]: 48958 10/06/2015 OFFICE/OUTPATIENT VISIT EST Diagnosis: Localized enlarged lymph nodes[ICD10: R59.0] Diagnosis: Local infection of the skin and subcutaneous tissue, unspecified[ICD10: L08.9] June MONTEROQUELINE Fab[facility]ola [facility] CPT- [facility]: 38541 09/14/2015 ([id number]) OFFICE/OUTPATIENT VISIT EST Diagnosis: Essential (primary) hypertension[ICD10: I10] Diagnosis: Actinic keratosis[ICD10: L57.0] María Elena MONTEROQUELINE AlanJj [facility] CPT-[facility]: 67552 09/07/2015 ([id number]) OFFICE/OUTPATIENT VISIT EST Diagnosis: Essential (primary) hypertension[ICD10: I10] Diagnosis: Acute stress reaction[ICD10: F43.0] María Elena COLON AlanJj [facility] CPT-[facility]: 89001 08/18/2015 ([id number]) OFFICE/OUTPATIENT VISIT EST Diagnosis: Essential (primary) hypertension[ICD10: I10] María Elena APPIAH DO [facility] CPT-4: 30083 07/07/2015 ([id number]) OFFICE/OUTPATIENT VISIT EST Diagnosis: Essential (primary) hypertension[ICD10: I10] María Elena APPIAH DO [facility] CPT-4: 81148 06/24/2015 ([id number]) OFFICE/OUTPATIENT VISIT EST Diagnosis: Essential (primary) hypertension[ICD10: I10] María Elena APPIAH DO [facility] CPT-4: 29219 06/21/2015 ([id number]) OFFICE/OUTPATIENT VISIT EST Diagnosis: Essential (primary) hypertension[ICD10: I10] Diagnosis: Mixed hyperlipidemia[ICD10: E78.2] Diagnosis: Acute stress reaction[ICD10: F43.0] Diagnosis: Primary insomnia[ICD10: F51.01] María Elena APPIAH DO [facility] CPT-4: 84688 06/16/2015 ([id number]) OFFICE/OUTPATIENT VISIT EST Diagnosis: INSOMNIA NOS[ICD9: 780.52] Diagnosis: HYPERTENSION[ICD9: 401.9] Diagnosis: Stress reaction[ICD9: 308.9] María Elena APPIAH DO [facility] CPT-4: 74725 06/02/2015 ([id number]) OFFICE/OUTPATIENT VISIT EST Diagnosis: HYPERTENSION[ICD9: 401.9] Diagnosis: Stress reaction[ICD9: 308.9] María Elena APPIAH DO [facility] CPT-4: 17174 05/20/2015 ([id number]) OFFICE/OUTPATIENT VISIT EST Diagnosis: Skin lesion[ICD9: 709.9] 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] María Elena APPIAH DO [facility] CPT-4: 89025 05/10/2015 ([id number]) OFFICE/OUTPATIENT VISIT EST Diagnosis: SINUSITIS, ACUTE[ICD9: 461.9] Diagnosis: ALLERGIC RHINITIS[ICD9: 477.9] Diagnosis: DERMATITIS NOS[ICD9: 692.9] María Elena REHMAN DO [facility] CPT-4: 70959 03/16/2015 OFFICE/OUTPATIENT VISIT EST Diagnosis: Otitis media[ICD9: 382.9] Diagnosis: SINUSITIS, ACUTE[ICD9: 461.9] June APPIAH DO [facility] CPT-4: 63172 09/11/2014 ([id number]) OFFICE/OUTPATIENT VISIT EST Diagnosis: HYPERLIPIDEMIA NEC/NOS[ICD9: 272.4] María Elena APPIAH DO [facility] CPT-4: 66666 08/31/2014 ([id number]) OFFICE/OUTPATIENT VISIT EST Diagnosis: - I - HYPERTENSION[ICD9: 401.9] Diagnosis: HYPERLIPIDEMIA NEC/NOS[ICD9: 272.4] María Elena APPIAH DO [facility] CPT-4: 46477 08/27/2014 ([id number]) OFFICE/OUTPATIENT VISIT EST Diagnosis: ABDOMINAL PAIN[ICD9: 789.00] Diagnosis: DYSPEPSIA[ICD9: 536.8] Diagnosis: Thoracic back pain[ICD9: 724.1] María Elena APPIAH [facility] CPT-4: 92081 07/21/2014 ([id number]) OFFICE/OUTPATIENT VISIT EST Diagnosis: ALLERGIC RHINITIS[ICD9: 477.9] María Elena APPIAH DO [facility] CPT-4: 44311 07/15/2014 ([id number]) OFFICE/OUTPATIENT VISIT EST Diagnosis: EDEMA[ICD9: 782.3] Diagnosis: Chronic insomnia[ICD9: 780.52] María Elena APPIAH DO [facility] CPT-4: 50012 05/18/2014 ([id number]) OFFICE/OUTPATIENT VISIT EST Diagnosis: Thyromegaly[ICD9: 240.9] Diagnosis: - I - HYPERTENSION[ICD9: 401.9] Diagnosis: ROUTINE MEDICAL EXAM[ICD9: V70.0] Diagnosis: EDEMA[ICD9: 782.3] María Elena APPIAH [facility] CPT-4: 10191 05/14/2014 OFFICE/OUTPATIENT VISIT EST Diagnosis: BRONCHITIS, ACUTE[ICD9: 466.0] Diagnosis: SINUSITIS, ACUTE[ICD9: 461.9] María Elena APPIAH [facility] CPT-4: 66609 04/21/2014 OFFICE/OUTPATIENT VISIT EST Diagnosis: SINUSITIS, ACUTE[ICD9: 461.9] June APPIAH [facility] CPT-4: 21967 03/04/2014 ([id number]) OFFICE/OUTPATIENT VISIT EST Diagnosis: VACCINE FOR TDAP[ICD10: Z23] María Elena APPIAH [facility] CPT-4: 11075 02/27/2014 ([id number]) OFFICE/OUTPATIENT VISIT EST Diagnosis: Seborrheic keratoses, inflamed[ICD9: 702.11] Diagnosis: ACTINIC KERATOSIS[ICD9: 702.0] Diagnosis: INSOMNIA NOS[ICD9: 780.52] María Elena [facility] CPT-4: 51712 01/13/2014 OFFICE/OUTPATIENT VISIT EST Diagnosis: EUSTACHIAN TUBE DYSFUNCTION[ICD9: 381.81] Diagnosis: ALLERGIC RHINITIS[ICD9: 477.9] Diagnosis: Serous otitis media[ICD9: 381.4] María Elena [facility] CPT-4: 26422 12/24/2013 ([id number]) OFFICE/OUTPATIENT VISIT EST Diagnosis: SINUSITIS, ACUTE[ICD9: 461.9] Diagnosis: ALLERGIC RHINITIS[ICD9: 477.9] Diagnosis: EUSTACHIAN TUBE DYSFUNCTION[ICD9: 381.81] María Elena [facility] CPT-4: 35429 11/12/2013 ([id number]) OFFICE/OUTPATIENT VISIT EST Diagnosis: ALLERGIC RHINITIS[ICD9: 477.9] Diagnosis: SINUSITIS, ACUTE[ICD9: 461.9] María Elena [facility] CPT-4: 86780 10/21/2013 ([id number]) OFFICE/OUTPATIENT VISIT EST Diagnosis: ASYMPTOMATIC VARICOSE VEINS[ICD9: 454.9] Diagnosis: INSOMNIA NOS[ICD9: 780.52] María Elena [facility] CPT-4: 02517 09/22/2013 OFFICE/OUTPATIENT VISIT EST Diagnosis: SINUSITIS, ACUTE[ICD9: 461.9] June [facility] CPT-4: 60632 08/27/2013 ([id number]) OFFICE/OUTPATIENT VISIT EST Diagnosis: CEPHALGIA[ICD9: 784.0] Diagnosis: CEPHALGIA, TENSION[ICD9: 307.81] 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] María Elena [facility] CPT-4: 47136 08/04/2013 ([id number]) OFFICE/OUTPATIENT VISIT EST Diagnosis: Cervicalgia[ICD9: 723.1] Diagnosis: SPASM OF MUSCLE[ICD9: 728.85] Diagnosis: CEPHALGIA, TENSION[ICD9: 307.81] María Elena [facility] CPT-4: 23034 07/23/2013 ([id number]) OFFICE/OUTPATIENT VISIT EST Diagnosis: EUSTACHIAN TUBE DYSFUNCTION[ICD9: 381.81] Diagnosis: ALLERGIC RHINITIS[ICD9: 477.9] María Elena [facility] CPT-4: 00607 06/23/2013 ([id number]) OFFICE/OUTPATIENT VISIT EST Diagnosis: ALLERGIC RHINITIS[ICD9: 477.9] Diagnosis: ACUTE SEROUS OTITIS MEDIA[ICD9: 381.01] Diagnosis: EUSTACHIAN TUBE DYSFUNCTION[ICD9: 381.81] María Elena [facility] CPT-4: 96560 05/26/2013 ([id number]) OFFICE/OUTPATIENT VISIT EST Diagnosis: HYPERTENSION[ICD9: 401.9] Diagnosis: EDEMA[ICD9: 782.3] Diagnosis: Serous otitis media[ICD9: 381.4] María Elena [facility] CPT-4: 05506 04/16/2013 ([id number]) OFFICE/OUTPATIENT VISIT EST Diagnosis: SINUSITIS, ACUTE[ICD9: 461.9] Diagnosis: ALLERGIC RHINITIS[ICD9: 477.9] Diagnosis: EDEMA[ICD9: 782.3] Diagnosis: Thyromegaly[ICD9: 240.9] Diagnosis: MALAISE AND FATIGUE[ICD9: 780.79] María Elena Lopez AlanJj TD [facility] CPT-4: 18255 03/05/2013 ([id number]) OFFICE/OUTPATIENT VISIT EST Diagnosis: PAIN, LOWER BACK[ICD9: 724.2] Diagnosis: SPASM OF MUSCLE[ICD9: 728.85] María Elena JUARES AlanJj TD [facility] CPT-4: 99120 12/23/2012 OFFICE/OUTPATIENT VISIT EST Diagnosis: Low back pain[ICD9: 724.2] [facility]: 53050 12/16/2012 ([id number]) OFFICE/OUTPATIENT VISIT EST Diagnosis: PAIN, LOWER BACK[ICD9: 724.2] Diagnosis: SCIATICA[ICD9: 724.3] Diagnosis: Lumbar herniated disc[ICD9: 722.10] María Elena COLON AlanJj [facility]: 69952 12/09/2012 ([id number]) OFFICE/OUTPATIENT VISIT EST Diagnosis: PAIN, LOWER BACK[ICD9: 724.2] Diagnosis: SCIATICA[ICD9: 724.3] Diagnosis: LUMBAR DISC DISPLACEMENT[ICD9: 722.10] María Elena AMRIN AlanJj [facility]: 46438 12/04/2012 OFFICE/OUTPATIENT VISIT EST Diagnosis: Pneumonia[ICD9: 486] Mary Hicks TD [facility] CPT-4: 04087 11/22/2012 ([id number]) OFFICE/OUTPATIENT VISIT EST Diagnosis: PNEUMONIA, ORGANISM[ICD9: 486] Diagnosis: Exacerbation of RAD (reactive airway disease)[ICD9: 493.92] María Elena JUARES AlanJj TD [facility] CPT-4: 17997 11/21/2012 OFFICE/OUTPATIENT VISIT EST Diagnosis: HYPERTENSION[ICD9: 401.9] Diagnosis: Cephalgia[ICD9: 784.0] Lashawn APPIAH DO [facility] CPT-4: 00949 10/29/2012 ([id number]) OFFICE/OUTPATIENT VISIT EST Diagnosis: MALAISE AND FATIGUE[ICD9: 780.79] Diagnosis: ARTHRALGIA-MULTIPLE SITES[ICD9: 719.49] María Elena APPIAH DO [facility] CPT-4: 66098 10/14/2012 ([id number]) OFFICE/OUTPATIENT VISIT EST Diagnosis: URINARY FREQUENCY[ICD9: 788.41] María Elena APPIAH DO [facility] CPT-4: 29797 09/27/2012 ([id number]) OFFICE/OUTPATIENT VISIT EST Diagnosis: MALAISE AND FATIGUE[ICD9: 780.79] Diagnosis: ARTHRALGIA-MULTIPLE SITES[ICD9: 719.49] María Elena APPIAH DO [facility] CPT-4: 22296 09/25/2012 ([id number]) OFFICE/OUTPATIENT VISIT EST Diagnosis: SINUSITIS, ACUTE[ICD9: 461.9] Diagnosis: EUSTACHIAN TUBE DYSFUNCTION[ICD9: 381.81] María Elena APPIAH DO [facility] CPT-4: 37023 08/29/2012 OFFICE/OUTPATIENT VISIT EST Diagnosis: ACTINIC KERATOSIS[ICD9: 702.0] Diagnosis: Inflamed seborrheic keratosis[ICD9: 702.11] Diagnosis: Skin cancer of face[ICD9: 173.31] Diagnosis: HYPERTENSION[ICD9: 401.9] María Elenamarcella Appiah MARÍA ELENA AlanJj SEAMUS GALINARose Mary [facility] CPT-4: 11966 08/12/2012 ([id number]) OFFICE/OUTPATIENT VISIT EST Diagnosis: ARTHRALGIA-MULTIPLE SITES[ICD9: 719.49] Diagnosis: GOUT[ICD9: 274.9] Diagnosis: HYPERTENSION[ICD9: 401.9] Diagnosis: Tachycardia[ICD9: 785.0] María Elena JUARES AlanJj FRITZ KARLOS [facility] CPT-4: 96727 05/06/2012 ([id number]) OFFICE/OUTPATIENT VISIT EST Diagnosis: INSOMNIA NOS[ICD9: 780.52] María Elena Hicks [facility] 50502 04/03/2012 ([id number]) OFFICE/OUTPATIENT VISIT EST Diagnosis: INSOMNIA NOS[ICD9: 780.52] Diagnosis: HYPERTENSION[ICD9: 401.9] Diagnosis: MIGRAINE NOS/NOT INTRCBL[ICD9: 346.90] María Elena MARIN AlanJj [facility] CPT-[facility]: 05797 03/19/2012 ([id number]) OFFICE/OUTPATIENT VISIT EST Diagnosis: CELLULITIS[ICD9: 682.9] Diagnosis: Ankle pain[ICD9: 719.47] Diagnosis: HYPERTENSION[ICD9: 401.9] María Elena Hicks [facility] Mary [facility] CPT-4: 16487 02/20/2012 ([id number]) OFFICE/OUTPATIENT VISIT EST Diagnosis: MIGRAINE NOS/NOT INTRCBL[ICD9: 346.90] Diagnosis: Vomiting[ICD9: 787.03] María Elena [facility] CPT-[facility]: 04263 01/30/2012 ([id number]) OFFICE/OUTPATIENT VISIT EST Diagnosis: EDEMA[ICD9: 782.3] Diagnosis: HYPERTENSION[ICD9: 401.9] Diagnosis: ALLERGIC RHINITIS[ICD9: 477.9] Diagnosis: ARTHRALGIA-MULTIPLE SITES[ICD9: 719.49] María Elena Hicks TD [facility] CPT-4: 44720 01/24/2012 ([id number]) OFFICE/OUTPATIENT VISIT EST Diagnosis: SPASM OF MUSCLE[ICD9: 728.85] Diagnosis: Thoracic back pain[ICD9: 724.1] Diagnosis: Cervical pain[ICD9: 723.1] María Elena Hicks [facility]: 00644 01/10/2012 OFFICE/OUTPATIENT VISIT EST Diagnosis: PAIN, LOWER BACK[ICD9: 724.2] Diagnosis: LUMBAR DISC DISPLACEMENT[ICD9: 722.10] María Elena MARIN AlnaJj [facility] CPT-[facility]: 24050 12/11/2011 OFFICE/OUTPATIENT VISIT EST Diagnosis: MIGRAINE NOS/NOT INTRCBL[ICD9: 346.90] Diagnosis: SINUSITIS, ACUTE[ICD9: 461.9] María Elena APPIAH [facility] CPT-4: 69355 11/09/2011 OFFICE/OUTPATIENT VISIT EST Diagnosis: MIGRAINE NOS/NOT INTRCBL[ICD9: 346.90] Diagnosis: LYMPHADENOPATHY[ICD9: 785.6] María Elena APPIAH DO [facility] CPT-4: 86174 09/13/2011 OFFICE/OUTPATIENT VISIT EST Diagnosis: MALAISE AND FATIGUE[ICD9: 780.79] Diagnosis: ARTHRALGIA-MULTIPLE SITES[ICD9: 719.49] María Elena APPIAH DO [facility] CPT-4: 18909 08/31/2011 OFFICE/OUTPATIENT VISIT EST Diagnosis: SINUSITIS, ACUTE[ICD9: 461.9] María Elena APPIAH DO [facility] CPT-4: 98498 07/20/2011 OFFICE/OUTPATIENT VISIT EST Diagnosis: HYPERTENSION[ICD9: 401.9] Diagnosis: PAIN, LOWER BACK[ICD9: 724.2] Diagnosis: SPASM OF MUSCLE[ICD9: 728.85] María Elena APPIAH DO [facility] CPT-4: 44733 07/06/2011 OFFICE/OUTPATIENT VISIT EST Diagnosis: MIGRAINE NOS/NOT INTRCBL[ICD9: 346.90] Diagnosis: HYPERTENSION[ICD9: 401.9] María Elena SEYMOUR [facility] CPT-4: 42570 05/22/2011 OFFICE/OUTPATIENT VISIT EST Diagnosis: SINUSITIS, ACUTE[ICD9: 461.9] Diagnosis: MIGRAINE NOS/NOT INTRCBL[ICD9: 346.90] Diagnosis: Dehydration[ICD9: 276.51] Diagnosis: Vomiting[ICD9: 787.03] María Elena Waymindimaryjane MARÍA ELENA AlanJj CIRO Bazzi [facility] CPT-4: 27497 05/09/2011 ([id number]) OFFICE/OUTPATIENT VISIT EST María Elena Td APPIAH [facility] CPT-4: 29321 02/14/2011 ([id number]) OFFICE/OUTPATIENT VISIT EST María Elena Waymindimaryjane MARLIN TANIA APPIAH [facility] CPT-4: 46486 02/03/2011 ([id number]) OFFICE/OUTPATIENT VISIT EST María Elena ISAAC [facility] CPT-4: 77767 01/31/2011 ([id number]) OFFICE/OUTPATIENT VISIT EST María Elena ISAAC [facility] CPT-4: 70390 01/25/2011 ([id number]) OFFICE/OUTPATIENT VISIT EST María Elena ISAAC [facility] CPT-4: 24362 01/18/2011 ([id number]) OFFICE/OUTPATIENT VISIT EST María Elena ISAAC [facility] CPT-4: 07005 11/29/2010 ([id number]) OFFICE/OUTPATIENT VISIT, EST María Elena BRAUNLINE [facility] CPT-4: 31309 10/10/2010 ([id number]) OFFICE/OUTPATIENT VISIT, EST María Elena BRA[facility]LINE [facility] CPT-4: 01767 06/07/2010 ([id number]) OFFICE/OUTPATIENT VISIT, EST María Elena MONTERO [facility]INE [facility] CPT-4: 78443 04/27/2010 ([id number]) OFFICE/OUTPATIENT VISIT, EST María Elena MONTERO [facility] CPT-4: 38404 04/05/2010 ([id number]) OFFICE/OUTPATIENT VISIT, EST María Elena MONTERO [facility] CPT-4: 83554 03/09/2010 ([id number]) OFFICE/OUTPATIENT VISIT, EST María Elena [facility]LINE [facility] CPT-4: 24569 03/03/2010 ([id number]) OFFICE/OUTPATIENT VISIT, EST María Elena [facility] CPT-4: 78901 01/17/2010 ([id number]) PREV VISIT, EST, AGE 40-64 María Elena COLEMAN [facility] CPT-4: 41422 12/27/2009 Plan of Care Planned Activity Notes Codes Status Date Appointment: María Elena Appiah WPtel: [address] [place], [place] [id number] [place] Won't have the new insurance till [...] 05/28/2019 Appointment: María Elena Appiah WPtel: [address] [place], [place] [phone] [place] FOLLOW UP 05/28/2019 Appointment: María Elena Appiah WPtel: [address] [place], [place] [phone] [place] BP CHECK 05/19/2019 Visit Diagnosis Plan: [...] 01/22/2019 Appointment: María Elena Appiah WPtel: [address] [place], [place] [phone] [place] FOLLOW UP 01/22/2019 Patient Education: estradiol- [employer] Coupon [id number] [email or web address]/getResource/[email or web address] Completed 01/22/2019 Appointment: María Elena Appiah WPtel: [address] [place] [address] [place] CANCELED 01/20/2019 Appointment: María Elena Appiah WPtel: [address] [place] [address] [place] LM NO SHOW 01/06/2019 Appointment: María Elena Appiah WPtel: [address] [place] [address] [place] CANCELED 10/17/2018 Appointment: María Elena Appiah WPtel: [address] [place] [address] [place] BP CHECK 10/09/2018 Visit Diagnosis Plan: [...] 09/30/2018 Appointment: María Elena Appiah WPtel: [address] [place] [address] [place] FOLLOW UP 09/30/2018 Visit Diagnosis Plan: [...] 08/27/2018 Appointment: María Elena Appiah WPtel: [address] [place] [address] [place] ACUTE ILLNESS 08/27/2018 Appointment: María Elena Appiah WPtel: [address] [place] [address] [place] Patient stated she went out to [...] 08/09/2018 Appointment: María Elena Appiah WPtel: [address] [place] [address] ACUTE ILLNESS 08/09/2018 Appointment: María Elena Appiah WPtel: [address] [place] [address] NO SHOW 08/08/2018 Visit Diagnosis Plan: Anxiety [...] B35.4 07/22/2018 Appointment: María Elena Appiah WPtel: [address] [place], [place] [phone] ACUTE ILLNESS 07/22/2018 Appointment: María Elena Appiah WPtel: [phone] [id number] [place] INJECTION 06/19/2018 Patient Education: Patient Medication [...] : L03.031 06/17/2018 Appointment: Kathleen Zuniga [address] [place] [address] ACUTE ILLNESS 06/17/2018 Patient Education: Patient Medication [...] : B02.9 05/16/2018 Appointment: Kathleen Zuniga [address] [place], [place] [phone] ACUTE ILLNESS 05/16/2018 Patient Education: Patient Medication [...] : L03.115 03/20/2018 Appointment: Kathleen Zuniga [address] FOLLOW UP 03/20/2018 Patient Education: Patient Medication [...] ICD-10 : L03.115 03/18/2018 Appointment: Kathleen Zuniga [address] [place] [address] FOLLOW UP 03/18/2018 Patient Education: Patient Medication [...] : L03.115 03/15/2018 Appointment: Kathleen Zuniga [address] [place] [address] ACUTE ILLNESS 03/15/2018 Patient Education: Patient Medication [...] : J01.90 02/11/2018 Appointment: Kathleen Zuniga [address] [place] [address] ACUTE ILLNESS 02/11/2018 Patient Education: Patient Medication Summary Completed 02/11/2018 Appointment: María Elena Appiah WPtel: [phone] [phone] INJECTION 02/01/2018 Patient Education: Patient Medication [...] : M51.16 01/30/2018 Appointment: Kathleen Zuniga [address] [place] [address] ACUTE ILLNESS 01/30/2018 Patient Education: Patient Medication Summary Completed 01/30/2018 Patient Education: Lyrica - 18+ - No HI TRAY GODINEZ Completed 01/30/2018 Visit Diagnosis Plan: Mixed hyperlipidemia [...] E11.65 12/18/2017 Appointment: María Elena Appiah WPtel: [facility] [address] Annual Well Visit 12/18/2017 Patient Education: Patient Medication Summary Completed 12/18/2017 Care Plan: Referral Order SNOMED-CT : [id number] Pending 12/18/2017 Appointment: María Elena Appiah WPtel: [phone] [phone] [place] INJECTION 12/10/2017 Patient Education: Patient Medication [...] : L03.031 12/07/2017 Appointment: Kathleen Zuniga [address] ACUTE ILLNESS 12/07/2017 Patient Education: Patient Medication [...] : J01.00 10/08/2017 Appointment: Kathleen Zuniga [address] ACUTE ILLNESS 10/08/2017 Patient Education: Patient Medication Summary Completed 10/08/2017 Appointment: María Elena Appiah WPtel: [address] [id number] [place] INJECTION 09/21/2017 Patient Education: Patient Medication [...] : R06.83 09/20/2017 Appointment: Kathleen [facility]uniga 504 [facility] [id number] [facility] I[facility] 09/20/2017 Patient Education: Patient Medication [...] : L60.0 08/29/2017 Appointment: Kathleen Zuniga [address] [place] [address] OFFICE SURGERY 08/29/2017 Patient Education: Patient Medication Summary Completed 08/29/2017 Visit Diagnosis Plan: Actinic keratosis Discussion: Cr yotherapy as above ICD-9 : 702.0 ICD-10 : L57.0 08/01/2017 Appointment: María Elena Appiah WPtel: [address] [place] [address] OFFICE SURGERY 08/01/2017 Patient Education: Patient Medication Summary Completed 08/01/2017 Appointment: María Elena Appiah WPtel: [address] [place] [address] PATIENT THOUGHT APPOINTMENT WAS TOMORROW 07/26/17 CALLED 15 MINUTES BEFORE APPT TO SAY SHE DIDN'T HAVE ANYONE TO COVER HER BUSINESS AND WOULD NOT MAKE IT NO SHOW 07/25/2017 Visit Diagnosis Plan: Cellulitis of left toe Discussio n: Clindamycin and notify if worsening or persistis ICD-9 : 681.10 ICD-10 : L03.032 07/19/2017 Appointment: María Elena Appiah WPtel: [address] [place], [place] [phone] MEDICATION REVIEW 07/19/2017 Patient Education: Patient Medication Summary Completed 07/19/2017 Appointment: María Elena Appiah WPtel: [address] [place], [place] [phone] CANCELED 07/04/2017 Visit Diagnosis Plan: Generalized hyperhidrosis Discus ian: CBC, CMP, TSH, free T4 ordered to assess. will review labs. ICD-9 : 780.8 ICD-10 : R61 06/27/2017 Visit Diagnosis Plan: Chronic sinusitis, unspecified D iscussion: Referral sent to dr. albarado in [place] per patient request. patient has been treated multiple times for sinus infections with no recovery. patient was seen by dr sanchez in the past with no interventions. patient has deviated septum which may be affecting her sinuses. 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, including hip Discussion: Shave removal of above lesio n--sent to pathology ICD-9 : 216.7 ICD-10 : D23.72 01/24/2017 Appointment: María Elena Appiah WPtel: [address] [place], [place] [phone] [place] 01/23 confirmed ~sl OFFICE SURGERY 01/24/2017 Patient Education: Patient Medication Summary Completed 01/24/2017 Appointment: Loan Sánchez [address] [place], [place] [phone] [place] 01/09 rescheduled~sl RESCHEDULED 01/15/2017 Visit Diagnosis Plan: Localized edema Discussion: Reich ge metolazone to lasix with potassium prn ICD-9 : 782.3 ICD-10 : R60.0 12/13/2016 Visit Diagnosis Plan: Primary insomnia Discussion: Dis joelsed Edgar but at this time patient wants to hold on trying any new meds and would like to try to decrease meds ICD-9 : 780.52 ICD-10 : F51.01 12/13/2016 Visit Diagnosis Plan: Other melanin hyperpigmentation Discussion: Monitor/Observe Sunscreen ICD-9 : 709.09 ICD-10 : L81.4 12/13/2016 Appointment: María Elena Appiah WPtel: [address] [place], [place] [phone] [place] 12/12 confirmed ~sl MEDICATION REVIEW 12/13/2016 Patient Education: Patient Medication Summary Completed 12/13/2016 Appointment: María Elena Appiah WPtel: [address] [place], [place] [phone] [place] rescheduled for 12/13/16 at 11am RESCHEDULED 0 12/06/2016 Appointment: María Elena Appiahtel: [address] [place], [place] [phone] [place] CANCELED 11/23/2016 Patient Education: Patient Medication [...] F51.01 11/01/2016 Appointment: María Elena Appiah WPtel: [address] [place], [place] [id number] [place] 10/31 lm `sl 11/01 lm`sl MEDICATION REVIEW 017 Patient Education: Patient Medication Summary Completed 11/01/2016 Referral: Canelo Overton WPtel: [phone] [id number] [place] Referral Initiated 10/30/2016 Visit Diagnosis Plan: [...] 10/17/2016 Appointment: María Elena Appiah WPtel: [address] [place], [place] [phone] 10/16 confirmed ~sl PAP 10/17/2016 Patient Education: Patient Medication Summary Completed 10/17/2016 Care Plan: MAMMOGRAM SCREENING LOINC : 2 6347-5 Pending 10/17/2016 Visit Diagnosis Plan: Other seasonal allergic rhinitis Discussion: Decadron/Garamycin Nasal [place] Mix Too soon for steroid Retry zyrtec 10mg daily ICD-9 : 477.9 ICD-10 : J30.2 10/10/2016 Appointment: María Elena Appiah WPtel: [address] [place], [place] [phone] [place] FOLLOW UP 10/10/2016 Patient Education: Patient Medication Summary Completed 10/10/2016 Appointment: María Elena Appiah WPtel: [address] [place], [place] [phone] 10/02 reschedule `sl RESCHEDULED 10/02/2016 Visit Plan: See surgery for removal of n ew left arm lesion and right foot lesion Lyrica to use next month for left arm paresthesias Continue current meds Discussed sunscreen/sunblock combo 09/19/2016 Appointment: María Elena Appiah WPtel: [address] [place], [place] [phone] 09/18 confirmed ~sl FOLLOW UP 09/19/2016 Patient Education: Patient Medication Summary Completed 09/19/2016 Patient Education: Patient Medication Summary Completed 09/18/2016 Care Plan: MAMMOGRAM BOTH BREASTS LOINC : 88471-0 Pending 09/18/2016 Visit Plan: Discussed that needs [...] sinuses 08/24/2016 Appointment: María Elena Appiah WPtel: [address] [place] [address] ACUTE ILLNESS 08/24/2016 Patient Education: Patient Medication Summary Completed 08/24/2016 Patient Education: Patient Medication Summary Completed 08/23/2016 Care Plan: MAMMOGRAM SCREENING LOINC : 2 6347-5 Pending 08/23/2016 Visit Plan: Finish doxycycline Add Breo 100/25 1 p BID for 2 weeks If not improving within next 2 days will get CXR 08/16/2016 Appointment: María Elena Appiah WPtel: [address] [place] [address] ACUTE ILLNESS 08/16/2016 Patient Education: Patient Medication Summary Completed 08/16/2016 Visit Plan: Supportive care. Rest, Fluid s, Tylenol/Motrin prn fever or bodyaches. Notify if worsening symptoms. Doxycyline and Prednisone 08/10/2016 Appointment: María Elena Appiah WPtel: [address] [place] [address] 08/09 lm`sl....confirmed-sp FOLLOW UP 09/2015 Patient Education: Patient Medication Summary Completed 08/10/2016 Visit Plan: Saline nasal flushes prn. Ty lenol/Motrin prn headache. Notify if persists/symptoms worsening. Dexamethasone 8mg IM today May use coricedan and mucinex 08/02/2016 Appointment: María Elena Appiah WPtel: [address] [place] [address] ACUTE ILLNESS 08/02/2016 Patient Education: Patient Medication Summary Completed 08/02/2016 Visit Plan: Cryotherapy as above and lef t forearm lesion removal as above with 5-0 punch biopsy and sent to path Return in 10 days for suture removal 08/01/2016 Appointment: María Elena Appiah WPtel: [address] [place], [place] [phone] 07/31 confirmed`~ OFFICE SURGERY 08/01/2016 Patient Education: Patient Medication Summary Completed 08/01/2016 Visit Plan: Stop clindamycin Check CBC, CMP, ESR now/STAT 07/27/2016 Appointment: María Elena Appiah WPtel: [address] [place] [address] ACUTE ILLNESS 07/27/2016 Patient Education: Patient Medication Summary Completed 07/27/2016 Visit Plan: Update lab and check ABIs to start with Will likely need cardiology evaluation to rule out PVD Clindamycin for 10 days Daily yogurt or probiotic Will return for removal of left arm lesions 07/20/2016 Appointment: María Elena Appiah WPtel: [address] [place] [address] ACUTE ILLNESS 07/20/2016 Patient Education: Patient Medication Summary Completed 07/20/2016 Patient Education: Patient Medication Summary Completed 07/20/2016 Care Plan: MAMMOGRAM BOTH BREASTS LOINC : 66304-5 Pending 07/20/2016 Care Plan: US EXAM CHEST LOINC : 06106-4 Pending 07/20/2016 Visit Plan: Wound culture collected from left great toe Appearance is somewhat staph like Rx as above Wound cleanser and skin care reviewed May need to add oral antibiotic if sores do not heal or continue to reoccur 07/06/2016 Appointment: Loan Sánchez [address] [place] [address] ACUTE ILLNESS 07/06/2016 Patient Education: Patient Medication Summary Completed 07/06/2016 Appointment: María Elena Appiah WPtel: [address] [place] [address] [place] INJECTION 05/25/2016 Patient Education: Patient Medication Summary Completed 05/25/2016 Visit Plan: Saline nasal flushes prn. Ty lenol/Motrin prn headache. Notify if persists/symptoms worsening. Dexamethasone and Rocephin given 04/26/2016 Appointment: María Elena Appiah WPtel: [address] [place] [address] ACUTE ILLNESS 04/26/2016 Patient Education: Patient Medication Summary Completed 04/26/2016 Visit Plan: Check CBC, CMP, TSH, FreeT4, HbA1C, estradiol, lipids in AM 03/02/2016 Appointment: Maíra Elena Appiah WPtel: [address] [place] [address] 03/01 lm~sl ACUTE ILLNESS 03/02/2016 Patient Education: Patient Medication Summary Completed 03/02/2016 Visit Plan: Exam is nearly normal Needs to be taking daily antihistamine Would prefer to use oral steroids instead of shot but patient insist that oral steroids cause horrible headaches for her Will given kenalog IM instead 02/09/2016 Appointment: Loan Sánchez [address] [place] [address] ACUTE ILLNESS 02/09/2016 Patient Education: Patient Medication Summary Completed 02/09/2016 Visit Plan: Culture urine Macrobid DC xa nax Trial of Ativan 1mg q HS 01/24/2016 Appointment: María Elena Appiah WPtel: [address] [place] [address] ACUTE ILLNESS 01/24/2016 Patient Education: Patient Medication Summary Completed 01/24/2016 Visit Plan: No steroid or rocephin injec tion warranted Can have oral prednisone Continue current home regimen Needs to follow up with Dr Sanchez if problems persist 12/23/2015 Appointment: Loan Sánchez [address] [place] [address] ACUTE ILLNESS 12/23/2015 Patient Education: Patient Medication Summary Completed 12/23/2015 Visit Plan: Saline nasal flushes prn. Ty lenol/Motrin prn headache. Notify if persists/symptoms worsening. Kenalog 40mg IM today 12/08/2015 Appointment: María Elena Appiah WPtel: [address] [place] [address] 12/06 confirmed~ ACUTE ILLNESS 12/08/2015 Patient Education: Patient Medication Summary Completed 12/08/2015 Appointment: María Elena Appiah WPtel: [address] [place] [address] ACUTE ILLNESS 11/18/2015 Patient Education: Patient Medication Summary Completed 10/11/2015 Appointment: María Elena Appiah WPtel: [address] [place] [address] [place] INJECTION 10/07/2015 Patient Education: Patient Medication Summary Completed 10/07/2015 Visit Plan: Check renal arterial doppler s and ECHO Change amlodopine to lotrel 5/20mg q HS Will need stress test as well Check CMP, uric acid, ESR 10/06/2015 Appointment: María Elena Appiah WPtel: [address] [place] [address] ACUTE ILLNESS 10/06/2015 Patient Education: Patient Medication Summary Completed 10/06/2015 Patient Education: [facility] - [employer] - Amlodipine Besylate - 18-64 - Dynamic Portal ID Completed 10/06/2015 Appointment: María Elena Appiah WPtel: [address] [place] [address] FOLLOW UP 09/22/2015 Visit Plan: Cephalexin 500 mg PO bid Mery ly topical Mupirocin to lesions on left lateral neck and face Follow-up in one week. Sooner if symptoms worsen 09/14/2015 Appointment: June Flores WPtel: [address] [place] [address] ACUTE ILLNESS 09/14/2015 Patient Education: Patient Medication Summary Completed 09/14/2015 Visit Plan: Change bystolic to bedtime d osing and amlodopine to morning dosing Cryotherapy as above to AKs 09/07/2015 Appointment: María Elena Appiah WPtel: [address] [place], [place] [phone] 09/06 appointment made and confirmed ~sl FOLLOW UP 09/07/2015 Patient Education: Patient Medication Summary Completed 09/07/2015 Visit Plan: Increase bystolic back to 20 mg daily but will split and take 10mg in AM and 10mg in PM Stress Reducers 08/18/2015 Appointment: María Elena Appiah WPtel: [address] [place], [place] [phone] 08/17/15 appt confirmed cn ACUTE ILLNESS 08/18 Patient Education: Patient Medication Summary Completed 08/18/2015 Appointment: María Elena Appiah WPtel: [address] [place] [address] BP CHECK 07/07/2015 Patient Education: Patient Medication Summary Completed 07/07/2015 Appointment: María Elena Appiah WPtel: [address] [place] [address] BP CHECK 06/24/2015 Patient Education: Patient Medication Summary Completed 06/24/2015 Appointment: María Elena Appiah WPtel: [address] [place] [address] BP CHECK 06/21/2015 Patient Education: Patient Medication Summary Completed 06/21/2015 Visit Plan: Lab discussed Continue curre nt meds and lifestyle modification Recheck lab in 6mos 06/16/2015 Appointment: María Elena Appiah WPtel: [address] [place], [place] [phone] 06/15 confirmed FOLLOW UP 06/16/2015 Patient Education: Patient Medication Summary Completed 06/16/2015 Patient Education: Patient Medication Summary Completed 06/15/2015 Visit Plan: Increase cymbalta to 60mg q HS Keep clonidine at current dose Recheck 2weeks Change xanax to klonopin 06/02/2015 Appointment: María Elena Appiah WPtel: [address] [place], [place] [phone] [place] 06/02 lm FOLLOW UP 06/02/2015 Patient Education: Patient Medication Summary Completed 06/02/2015 Appointment: María Elena Appiah WPtel: [address] [place] [address] ACUTE ILLNESS 05/24/2015 Visit Plan: Increase clonidine to 0.2mg q HS Add cymbalta 30mg q HS Recheck 2weeks Stress Reducers Check fasting lab Discussed sleep study 05/20/2015 Appointment: María Elena Appiah WPtel: [address] [place] [address] ACUTE ILLNESS 05/20/2015 Patient Education: Patient Medication Summary Completed 05/20/2015 Patient Education: [facility] - [employer] - Cymbalta - 18-64 - Dynamic Portal ID Completed 05/20/2015 Appointment: María Elena Appiah WPtel: [address] [place] [address] BP CHECK 05/19/2015 Patient Education: Patient Medication Summary Completed 05/19/2015 Visit Plan: Topical Bactroban alternatin g with topical betamethasone Recheck 2weeks 05/10/2015 Appointment: María Elena Appiah WPtel: [address] [place] [address] 05/07 vm cn...05/07 appt confirmed OFFICE SURGER Y 05/10/2015 Patient Education: Patient Medication Summary Completed 05/10/2015 [facility]: [facility] [address] Referral Initiated 05/04/2015 Visit Plan: Saline nasal flushes prn. Ty lenol/Motrin prn headache. Notify if persists/symptoms worsening. Depomedrol 40mg IM today 03/16/2015 Appointment: María Elena Appiah WPtel: [address] [place] [address] ACUTE ILLNESS 03/16/2015 Patient Education: Patient Medication Summary Completed 03/16/2015 Appointment: María Elena Appiah WPtel: [address] [place] [address] ER Follow UP 03/09/2015 Visit Plan: Cryotherapy to lesions as ab ove 10/27/2014 Appointment: María Elena Appiah WPtel: [address] [place] [address] OFFICE SURGERY 10/27/2014 Patient Education: Patient Medication Summary Completed 10/27/2014 Appointment: June Flores WPtel: [address] [place] [address] ACUTE ILLNESS 09/11/2014 Patient Education: Patient Medication Summary Completed 09/11/2014 Visit Plan: Lab discussed Lipitor 10mg d aily Coenzyme Q-10 400mg daily Vitamin D3 5000u daily Recheck lipids with LFTs in 3mos then fwup 08/31/2014 Appointment: María Elena Appiah WPtel: [address] [place] [address] 08/28 voicemail FOLLOW UP 08/31/2014 Patient Education: Patient Medication Summary Completed 08/31/2014 Appointment: María Elena Appiah WPtel: [address] [place] [address] [place] LAB 08/27/2014 Appointment: María Elena Appiah WPtel: [address] [place], [place] [phone] [place] LAB 08/27/2014 Patient Education: Patient Medication Summary Completed 08/27/2014 Appointment: María Elena Appiah WPtel: [address] [place] [address] ACUTE ILLNESS 07/23/2014 Appointment: María Elena Appiah WPtel: [address] [place] [address] ACUTE ILLNESS 07/21/2014 Patient Education: Patient Medication Summary Completed 07/21/2014 Visit Plan: Kenalog 40mg IM today Contin ue narendra and singulair Add Flonase 07/15/2014 Appointment: María Elena Appiah WPtel: [address] [place] [address] ACUTE ILLNESS 07/15/2014 Appointment: María Elena Appiah WPtel: [address] [place], [place] [phone] ACUTE ILLNESS 07/15/2014 Patient Education: Patient Medication Summary Completed 07/15/2014 Visit Plan: Will do metolazone 2.5mg prn with 6 potassium and see if causes as severe cramping Trial of of seroquel XR 50mg q PM with evening meal and let us know how works 05/18/2014 Appointment: María Elena Appiah WPtel: [address] [place] [address] 05/15 left message FOLLOW UP 05/18/2014 Patient Education: Patient Medication Summary Completed 05/18/2014 Appointment: María Elena Appiah WPtel: [address] [place], [place] [phone] [place] LAB 05/14/2014 Patient Education: Patient Medication Summary Completed 05/14/2014 Appointment: María Elena Appiah WPtel: [address] [place], [place] [phone] [place] INJECTION 04/22/2014 Visit Plan: Tisha and Miranda today a nd finish abx given from urgent care 04/21/2014 Appointment: María Elena Appiah WPtel: [address] [place], [place] [phone] [place] INJECTION 04/21/2014 Patient Education: Patient Medication Summary Completed 04/21/2014 Appointment: June Flores WPtel: [address] [place], [place] [phone] ACUTE ILLNESS 03/04/2014 Patient Education: Patient Medication Summary Completed 03/04/2014 Appointment: María Elena Appiah WPtel: [address] [place], [place] [phone] [place] INJECTION 02/27/2014 Patient Education: Patient Medication Summary Completed 02/27/2014 Visit Plan: Cryotherapy as above to all lesions Patient wants to try no meds for insomnia for a while and see how goes 01/13/2014 Appointment: María Elena Appiah WPtel: [address] [place] [address] OFFICE SURGERY 01/13/2014 Patient Education: Patient Medication Summary Completed 01/13/2014 Visit Plan: Stop Melatonin Stop Soma Tri al of trazadone 75mg q HS See ENT for possible tubes as has had chronic ETD and serous otitis media with numerous steroids 12/24/2013 Appointment: María Elena Appiah WPtel: [address] [place] [address] ACUTE ILLNESS 12/24/2013 Patient Education: Patient Medication Summary Completed 12/24/2013 Visit Plan: Saline nasal flushes prn. Ty lenol/Motrin prn headache. Notify if persists/symptoms worsening. 11/12/2013 Appointment: María Elena Appiah WPtel: [address] [place] [address] ACUTE ILLNESS 11/12/2013 Patient Education: Patient Medication Summary Completed 11/12/2013 Appointment: María Elena Appiah WPtel: [address] [place] [address] ACUTE ILLNESS 10/21/2013 Patient Education: Patient Medication Summary Completed 10/21/2013 Visit Plan: Sleep hygiene and sleep rout ine Melatonin 10mg q HS Support stockings and observe 09/22/2013 Appointment: María Elena Appiah WPtel: [address] [place] [address] ACUTE ILLNESS 09/22/2013 Patient Education: Patient Medication Summary Completed 09/22/2013 Appointment: June Flores WPtel: [address] [place] [address] ACUTE ILLNESS 08/27/2013 Patient Education: Patient Medication Summary Completed 08/27/2013 Visit Plan: Proceed with CT scan of head /neck Proceed with occipital nerve injections Butrans 20mcg patch weekly until can get into see Dr. Mcdonough for injections 08/04/2013 Appointment: María Elena Appiah WPtel: [address] [place] [address] FOLLOW UP 08/04/2013 Patient Education: Patient Medication Summary Completed 08/04/2013 Visit Plan: OMT done Daily neck stretche s, moist heat Increase Celebrex to 200mg BID Add flexeril 07/23/2013 Appointment: María Elena Appiah WPtel: [address] [place] [address] 07/22 voicemail FOLLOW UP 07/23/2013 Patient Education: Patient Medication Summary Completed 07/23/2013 Appointment: María Elena Appiah WPtel: [address] [place] [address] ACUTE ILLNESS 06/23/2013 Patient Education: Patient Medication Summary Completed 06/23/2013 Appointment: María Elena Appiah WPtel: [address] [place] [address] ACUTE ILLNESS 05/26/2013 Patient Education: Patient Medication Summary Completed 05/26/2013 Visit Plan: Decrease clonidine to 0.1mg TID If BP remains stable consider decreasing amlodopine Prednisone for 5 days BP check in 1mo 04/16/2013 Appointment: María Elena Appiah WPtel: [address] [place] [address] 04/14 pt called and confirmed appt FOLLOW UP 04/16/2013 Patient Education: Patient Medication Summary Completed 04/16/2013 Appointment: María Elena Appiah WPtel: [address] [place] [address] ACUTE ILLNESS 03/05/2013 Patient Education: Patient Medication Summary Completed 03/05/2013 Visit Plan: Pt has MARIA ELENA on with Dr. Mcdonough Continue Butrans patch Refill Hydrocodone early tomorrow 12/23/2012 Appointment: María Elena Appiah WPtel: [address] [place] [address] FOLLOW UP 12/23/2012 Patient Education: Patient Medication Summary Completed 12/23/2012 Appointment: Lashawn Eckert WPtel: [address] [place] [address] ACUTE ILLNESS 12/16/2012 Patient Education: Patient Medication Summary Completed 12/16/2012 Visit Plan: Proceed with updated MRI of LS spine Continue gabapentin and add soma and diclofenac Will likely need to go for another epidural 12/09/2012 Appointment: María Elena Appiah WPtel: [address] [place] [address] ACUTE ILLNESS 12/09/2012 Patient Education: Patient Medication Summary Completed 12/09/2012 Visit Plan: Injection as above Finish me drol dose pack Chiropracter this afternoon 12/04/2012 Appointment: María Elena Appiah WPtel: [address] [place] [address] ACUTE ILLNESS 12/04/2012 Patient Education: Patient Medication Summary Completed 12/04/2012 Appointment: Mary Tillman WPtel: [address] [place] [address] FOLLOW UP 11/22/2012 Patient Education: Patient Medication Summary Completed 11/22/2012 Appointment: María Elena Appiah WPtel: [address] [place] [address] ACUTE ILLNESS 11/21/2012 Patient Education: Patient Medication Summary Completed 11/21/2012 Appointment: María Elena Appiah WPtel: [address] [place] [address] BP CHECK 11/07/2012 Patient Education: Patient Medication [...] re-check. 10/29/2012 Appointment: Lashawn Eckert WPtel: [address] [place] [address] ACUTE ILLNESS 10/29/2012 Patient Education: Patient Medication Summary Completed 10/29/2012 Appointment: María Elena Appiah WPtel: [address] [place] [address] ACUTE ILLNESS 10/14/2012 Patient Education: Patient Medication Summary Completed 10/14/2012 Appointment: María lEena Appiah WPtel: [address] [place] [address] 09/27/2012 Patient Education: Patient Medication Summary Completed 09/27/2012 Appointment: María Elena Appiah WPtel: [address] [place] [address] ACUTE ILLNESS 09/25/2012 Patient Education: Patient Medication Summary Completed 09/25/2012 Appointment: María Elena Appiah WPtel: [address] [place] [address] BP CHECK 09/24/2012 Appointment: María Elena Appiah WPtel: [address] [place] [address] ACUTE ILLNESS 08/29/2012 Patient Education: Patient Medication Summary Completed 08/29/2012 Visit Plan: Cryotherapy as above See Karlos m for right ear lesion--probable MOHs procedure Increase amlodopine to 10mg daily 08/12/2012 Appointment: María Elena Appiah WPtel: [address] [place] [address] OFFICE SURGERY 08/12/2012 Patient Education: Patient Medication Summary Completed 08/12/2012 Appointment: María Elena Appiah WPtel: [address] [place] [address] 05/03 vm on pt phone...pt called on 08/2 3 pt called wanting in had no one cancel so could not get her in for an appt sooner than 05/06. ACUTE ILLNESS 05/06/2012 Patient Education: Patient Medication Summary Completed 05/06/2012 Visit Plan: Pt wants to hold on any furt her sleep medications 04/03/2012 Appointment: María Elena Appiah WPtel: [address] [place], [place] [phone] FOLLOW UP 04/03/2012 Patient Education: Patient Medication Summary Completed 04/03/2012 Appointment: María Elena Appiah WPtel: [address] [place], [place] [phone] [place] FOLLOW UP 03/19/2012 Patient Education: Patient Medication Summary Completed 03/19/2012 Appointment: María Elena Appiah WPtel: [address] [place], [place] [phone] BP CHECK 02/22/2012 Patient Education: Patient Medication Summary Completed 02/22/2012 Appointment: María Elena Appiah WPtel: [address] [place], [place] [phone] BP CHECK 02/21/2012 Patient Education: Patient Medication Summary Completed 02/21/2012 Visit Plan: Doxycycline and bactroban fo r foot Supportive care on ankles and knees Add norvasc for BP 02/20/2012 Appointment: María Elena Appiah WPtel: [address] [place], [place] [phone] ER Follow UP 02/20/2012 Patient Education: Patient Medication Summary Completed 02/20/2012 Appointment: María Elena Appiah WPtel: [address] [place] [phone] ACUTE ILLNESS 01/30/2012 Patient Education: Patient Medication Summary Completed 01/30/2012 Appointment: María Elena Appiah WPtel: [address] [place] [phone] ACUTE ILLNESS 01/24/2012 Patient Education: Patient Medication Summary Completed 01/24/2012 Visit Plan: Daily back stretches, moist heat, Biofreeze prn OMT done 01/10/2012 Appointment: María Elena Appiahtel: [address] [place] [address] ACUTE ILLNESS 01/10/2012 Patient Education: Patient Medication Summary Completed 01/10/2012 Appointment: María Elena Appiah WPtel: [address] [place] [address] FOLLOW UP 12/11/2011 Patient Education: Patient Medication Summary Completed 12/11/2011 Appointment: María Elena Appiah WPtel: [address] [place] [address] ACUTE ILLNESS 11/09/2011 Patient Education: Patient Medication Summary Completed 11/09/2011 Appointment: María Elena Appiahtel: [address] [place] [address] ACUTE ILLNESS 09/13/2011 Patient Education: Patient Medication Summary Completed 09/13/2011 Visit Plan: Check CBC, TSH, Free T4, CMP , ESR, Vit D, B12 now Start Prednisone today 08/31/2011 Appointment: María Elena Appiahtel: [address] [place] [address] ACUTE ILLNESS 08/31/2011 Patient Education: Patient Medication Summary Completed 08/31/2011 Appointment: María Elena Appiahtel: [address] [place] [address] [place] INJECTION 07/20/2011 Patient Education: Patient Medication Summary Completed 07/20/2011 Visit Plan: Continue current meds Monite r BP Cont stretches from PT 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 07/06/2011 Appointment: María Elena Appiahtel: [address] [place] [address] FOLLOW UP 07/06/2011 Patient Education: Patient Medication Summary Completed 07/06/2011 Appointment: María Elena Appiahtel: [address] [place], [place] [phone] BP CHECK 06/06/2011 Patient Education: Patient Medication Summary Completed 06/06/2011 Visit Plan: Add Bystolic at 2.5mg QAM Ad d Robaxin 750mg 2 po q HS BP check in 2wks 05/22/2011 Appointment: María Elena Appiah WPtel: [address] [place], [place] [phone] FOLLOW UP 05/22/2011 Patient Education: Patient Medication Summary Completed 05/22/2011 Appointment: María Elena Appiah WPtel: [address] [place], [place] [phone] ER Follow UP 05/09/2011 Patient Education: Patient Medication Summary Completed 05/09/2011 Appointment: María Elena Appiah WPtel: [address] [place], [place] [phone] FOLLOW UP 02/22/2011 Visit Plan: Rx written for Hydrocodone 1 0/325mg #240 See Ortho 02/14/2011 Appointment: María Elena Appiah WPtel: [address] [place] [phone] OMT 02/14/2011 Patient Education: Patient Medication Summary [...] work. 02/03/2011 Appointment: Lashawn Eckert WPtel: [address] [place], [place] [phone] ACUTE ILLNESS 02/03/2011 Patient Education: Patient Medication Summary Completed 02/03/2011 Visit Plan: OMT done Cont daily stretche s 01/31/2011 Appointment: María Elena Appiahtel: [address] [place] [address] ACUTE ILLNESS 01/31/2011 Patient Education: Patient Medication Summary Completed 01/31/2011 Visit Plan: Continue pain meds OMT done Proceed with PT No work this summer01/25/2011 Appointment: María Elena Appiah WPtel: [address] [place] [address] ACUTE ILLNESS 01/25/2011 Patient Education: Patient Medication Summary Completed 01/25/2011 Visit Plan: Start PT Long discussion abo ut getting pain meds from only and can only have max of 4grams of tylenol per day Change to Hydrocodone 10/325mg 1- 2 po TID prn pain--#180 called to Radha 01/18/2011 Appointment: María Elena Appiah WPtel: [address] [place] [address] FOLLOW UP 01/18/2011 Patient Education: Patient Medication Summary Completed 01/18/2011 Visit Plan: Daily back stretches, moist heat, Biofreeze prn 11/29/2010 Appointment: María Elena Appiahtel: [address] [place] [address] ER Follow UP 11/29/2010 Patient Education: Patient Medication Summary Completed 11/29/2010 Visit Plan: Saline nasal flushes prn. Ty lenol/Motrin prn headache. Notify if persists/symptoms worsening. Finish augmentin Add Medrol Dose Pack 10/10/2010 Appointment: María Elena Appiahtel: [address] [place] [address] ACUTE ILLNESS 10/10/2010 Patient Education: Patient Medication Summary Completed 10/10/2010 Visit Plan: Cryotherapy x3 to multiple l esions on both forearms 07/19/2010 Appointment: María Elena Appiah WPtel: [address] [place], [place] [phone] [place] OFFICE SURGERY 07/19/2010 Patient Education: Patient Medication Summary Completed 07/19/2010 Appointment: María Elena Appiah WPtel: [address] [place], [place] [phone] [place] BP CHECK 07/06/2010 Patient Education: Patient Medication Summary Completed 07/06/2010 Appointment: María Elena Appiah WPtel: [address] [place], [place] [phone] [place] BP CHECK 06/30/2010 Patient Education: Patient Medication Summary Completed 06/30/2010 Appointment: María Elena Appiah WPtel: [address] [place] [address] [place] BP CHECK 06/20/2010 Patient Education: Patient Medication Summary Completed 06/20/2010 Visit Plan: Change Diovan to Exforge 160 /5mg QD OMT done to thoracics BP check in 2wks 06/07/2010 Appointment: María Elena Appiah WPtel: [address] [place], [place] [phone] FOLLOW UP 06/07/2010 Patient Education: Patient Medication Summary Completed 06/07/2010 Appointment: María Elena Appiah WPtel: [address] [place] [phone] [place] BP CHECK 06/03/2010 Patient Education: Patient Medication Summary Completed 06/03/2010 Appointment: María Elena Appiah WPtel: [address] [place], [place] [phone] [place] BP CHECK 06/01/2010 Patient Education: Patient Medication Summary Completed 06/01/2010 Visit Plan: Irritated skin tags to left neck x2 excised at base with scissors and base cauterized 05/30/2010 Appointment: María Elena Appiah WPtel: [address] [place] [phone] OFFICE SURGERY 05/30/2010 Patient Education: Patient Medication Summary Completed 05/30/2010 Visit Plan: Saline nasal flushes prn. Ty lenol/Motrin prn headache. Notify if persists/symptoms worsening. Restart Nasonex Has allergy testing set for May 25 04/27/2010 Appointment: María Elena Appiahtel: [address] [place] [address] ACUTE ILLNESS 04/27/2010 Patient Education: Patient Medication Summary Completed 04/27/2010 Visit Plan: Saline nasal flushes prn. Ty lenol/Motrin prn headache. Notify if persists/symptoms worsening. Omnaris BID plus injections 04/05/2010 Appointment: María Elena Appiahtel: [address] [place] [address] ACUTE ILLNESS 04/05/2010 Patient Education: Patient Medication Summary Completed 04/05/2010 Visit Plan: Saline nasal flushes prn. Ty lenol/Motrin prn headache. Notify if persists/symptoms worsening. 03/09/2010 Appointment: María Elena Appiah WPtel: [address] [place] [address] ACUTE ILLNESS 03/09/2010 Patient Education: Patient Medication Summary Completed 03/09/2010 Visit Plan: Cont Clonidine as is Cont Pr emarin Fwup with surgery as scheduled 03/03/2010 Appointment: María Elena Appiahtel: [address] [place] [address] FOLLOW UP 03/03/2010 Patient Education: Patient Medication Summary Completed 03/03/2010 Visit Plan: Check Pelvic US now Discusse d Dand C vs Hysterectomy 01/17/2010 Appointment: María Elena Appiah WPtel: [address] [place] [address] ACUTE ILLNESS 01/17/2010 Patient Education: Patient Medication Summary Completed 01/17/2010 Visit Plan: Check fasting lab and schedu le Mammogram 2gm Na Diet Trial of Ambien 10mg qhs Fwup pending lab results 12/27/2009 Appointment: María Elena Appiah WPtel: [phone] [id number] [place] ESTABLISHED PATIENT 12/27/2009 Patient Education: Patient Medication Summary Completed 12/27/2009 Referral: Canelo Overton WPtel: [phone] [id number] [place] Referral Initiated Referral: Philipp Flores WPtel: [address] [id number] [place] Referral Appointment Requested Instructions Comment . [...] 240 See Ortho . will refer to Claudiaasi for epidural ster oid injection. Pt. wants [...]
--- OUTSIDE RECORDS SUMMARY | 2020-03-13 07:16 | XMS REPORT | CCD ---
Author Author Gale Appiah D.O. Organization [facility] Address [address] [place] [phone] Phone Care Team Providers Care Autopsy Assistant Name Role Phone María Elena Appiah D.O., PP Unavailable CCM Unavailable Summary Purpose Interface Exchange Family History Family History data not found Social History Social History Element Codes Description Effective Dates Tobacco history SNOMED CT: 410236599 Never smoker 05/22/2011 Allergies, Adverse Reactions, Alerts [...] Fill Instructions doxepin 25 mg capsule RxNorm: 3261980 1 Capsule(s) Oral every night at bedtime as needed for sleep 08/21/2019 11/18/2019 Active hydrocodone 10 mg-acetaminophen 325 mg tablet RxNorm: 197455 1-2 Tablet(s) PO TID 08/12/2019 No Stop Date Active as needed for pa in - Previous quantity #240, will start dosing for #180 in April 2011 per Doctor Td. Medrol (Dustin) 4 mg tablets in a dose pack RxNorm: 599895 Tablet(s) Oral As Directed 07/21/2019 No Stop Date Active Premarin 1.25 mg tablet RxNorm: 765143 1 Tablet(s) Oral QD 07/02/2003/28/2020 Active hydrocodone 10 mg-acetaminophen 325 mg tablet RxNorm: 186544 1-2 Tablet(s) PO TID 07/01/2019 08/11/2019 Inactive as needed for pa in - Previous quantity #240, will start dosing for #180 in April 2011 per Doctor Td. gabapentin 300 mg capsule RxNorm: 257649 1 Capsule(s) PO QHS 201809/24/2019 Active celecoxib 200 mg capsule RxNorm: 410283 1 Capsule(s) Or al two times a day as needed for pain 06/27/2019 06/27/2019 Inactive Singulair 10 mg tablet RxNorm: 157858 TAKE ONE TABLET BY MOUTH JOSÉ Y 06/24/2019 No Stop Date Active furosemide 40 mg tablet RxNorm: 672666 TAKE ONE TABLET BY MOUTH EVERY MORNING NEEDED FOR EDEMA . TAKE WITH POTASSIUM 06/24/2019 No Stop Date Active lisinopril 20 mg tablet RxNorm: 650171 TAKE ONE TABLET BY MOUTH DAILY .... THIS REPLACE 10MG TABLETS 06/24/2019 No Stop Date Active doxepin 25 mg capsule RxNorm: 4584013 TAKE ONE CAPSULE B Y MOUTH EVERY NIGHT AT BEDTIME NEEDED FOR SLEEP 06/24/2019 08/20/2019 Inactive nystatin-triamcinolone 100,000 unit/g-0.1 % topical cream Rx Norm: 1528366 1 Application Topical two times a day 06/12/2019 06/19/2019 Inactive apply BID for 1 week nystatin-triamcinolone 100,000 unit/g-0.1 % topical cream Rx Norm: 5498510 1 Application Topical two times a day 06/12/2019 06/11/2019 Inactive apply BID for 1 week hydrocodone 10 mg-acetaminophen 325 mg tablet RxNorm: 114447 1-2 Tablet(s) PO QID as needed for pain MUST LAST 30 DAYS 05/28/2019 06/26/2019 Inactiv e (Response to an electronic controlled substance refill request - RxReferenceNumber: [id number]) baclofen 20 mg tablet RxNorm: 931290 1 Tablet(s) PO TID as needed for muscle spasm 05/19/2019 05/27/2019 Inactive gabapentin 300 mg capsule RxNorm: 391917 1 Capsule(s) PO QHS 201805/27/2019 Inactive lisinopril 20 mg tablet RxNorm: 325694 1 Tablet(s) PO Q D TAKE ONE TABLET BY MOUTH DAILY, REPLACES 10 MG DOSE 05/19/2019 06/23/2019 Inactive doxepin 25 mg capsule RxNorm: 7450242 TAKE ONE CAPSULE B Y MOUTH EVERY NIGHT AT BEDTIME NEEDED FOR SLEEP 05/16/2019 06/14/2019 Inactive lisinopril 20 mg tablet RxNorm: 754354 TAKE ONE TABLET BY MOUTH DAILY, REPLACES 10 MG DOSE 05/16/2019 05/18/2019 Inactive Singulair 10 mg tablet RxNorm: 788545 TAKE ONE TABLET BY MOUTH JOSÉ Y 05/16/2019 06/14/2019 Inactive gabapentin 300 mg capsule RxNorm: 782325 1 Capsule(s) PO QHS 201805/04/2019 Inactive estropipate 1.5 mg tablet RxNorm: 989727 1 Tablet(s) PO QD 05/05/2005/27/2019 Inactive estropipate 1.5 mg tablet RxNorm: 661803 1 Tablet(s) PO QD 05/05/2005/04/2019 Inactive gabapentin 300 mg capsule RxNorm: 882321 1 Capsule(s) PO QHS 201805/18/2019 Inactive hydrocodone 10 mg-acetaminophen 325 mg tablet RxNorm: 122600 1-2 Tablet(s) PO QID as needed for pain MUST LAST 30 DAYS 04/25/2019 05/24/2019 Inactiv e (Response to an electronic controlled substance refill request - RxReferenceNumber: [id number]) metoprolol tartrate 100 mg tablet RxNorm: 119804 TAKE O NE TABLET BY MOUTH TWICE A DAY 04/24/2019 06/22/2019 Inactive cyclobenzaprine 10 mg tablet RxNorm: 374650 TAKE ONE TA BLET BY MOUTH THREE TIMES A DAY NEEDED FOR MUSCLE SPASMS 04/24/2019 05/18/2019 Inactive Lyrica 75 mg capsule RxNorm: 365865 1 Capsule(s) PO QHS 03/25/2019 Inactive duloxetine 60 mg capsule,delayed release RxNorm: 490834 TAKE ONE CAPSULE BY MOUTH DAILY 03/21/2019 05/19/2019 Inactive triamterene 75 mg-hydrochlorothiazide 50 mg tablet RxNorm: 3 85458 TAKE ONE TABLET BY MOUTH DAILY 03/21/2019 05/19/2019 Inactive Klor-Con 8 mEq tablet,extended release RxNorm: 218559 T FARRUKH ONE TABLET BY MOUTH TWICE A DAY 03/21/2019 05/19/2019 Inactive Lipitor 10 mg tablet RxNorm: 698367 TAKE ONE TABLET BY MOUTH AT BEDTIME 03/21/2019 09/16/2019 Active clonidine HCl 0.1 mg tablet RxNorm: 091070 TAKE ONE TAB LET BY MOUTH FOUR TIMES A DAY 03/21/2019 05/19/2019 Inactive allopurinol 300 mg tablet RxNorm: 623454 TAKE ONE TABLET BY LOPEZ TH DAILY 03/21/2019 05/19/2019 Inactive hydrocodone 10 mg-acetaminophen 325 mg tablet RxNorm: 529125 1-2 Tablet(s) PO QID as needed for pain MUST LAST 30 DAYS 02/28/2019 03/29/2019 Inactiv e (Response to an electronic controlled substance refill request - RxReferenceNumber: [id number]) furosemide 40 mg tablet RxNorm: 822574 TAKE ONE TABLET BY MOUTH EVERY MORNING NEEDED FOR EDEMA . TAKE WITH POTASSIUM 02/21/2019 03/22/2019 Inactive cyclobenzaprine 10 mg tablet RxNorm: 258121 TAKE ONE TA BLET BY MOUTH THREE TIMES A DAY NEEDED FOR MUSCLE SPASMS 02/21/2019 04/21/2019 Inactive lisinopril 20 mg tablet RxNorm: 972909 TAKE ONE TABLET BY MOUTH DAILY, REPLACES 10 MG DOSE 02/21/2019 05/15/2019 Inactive doxepin 25 mg capsule RxNorm: 1792202 TAKE ONE CAPSULE B Y MOUTH EVERY NIGHT AT BEDTIME NEEDED FOR SLEEP 02/21/2019 05/15/2019 Inactive nystatin 100,000 unit/gram topical cream RxNorm: 333619 APPLY TO AFFECTED AREA(S) TWO TIMES A DAY 02/21/2019 03/22/2019 Inactive estradiol 1 mg tablet RxNorm: 606055 2 Tablet(s) PO QD replaces premarin 01/22/2019 05/04/2019 Inactive lisinopril 20 mg tablet RxNorm: 373488 TAKE ONE TABLET BY MOUTH DAILY, REPLACES 10 MG DOSE 01/20/2019 02/18/2019 Inactive cyclobenzaprine 10 mg tablet RxNorm: 575299 TAKE ONE TA BLET BY MOUTH THREE TIMES A DAY NEEDED FOR MUSCLE SPASMS 01/20/2019 02/18/2019 Inactive metoprolol tartrate 100 mg tablet RxNorm: 427012 TAKE O NE TABLET BY MOUTH TWICE A DAY 01/20/2019 02/18/2019 Inactive cyclobenzaprine 10 mg tablet RxNorm: 116111 TAKE ONE TA BLET BY MOUTH THREE TIMES A DAY NEEDED FOR MUSCLE SPASMS 12/19/2018 01/17/2019 Inactive lisinopril 20 mg tablet RxNorm: 545046 TAKE ONE TABLET BY MOUTH DAILY, REPLACES 10 MG DOSE 12/19/2018 01/17/2019 Inactive duloxetine 60 mg capsule,delayed release RxNorm: 213167 TAKE ONE CAPSULE BY MOUTH DAILY 12/19/2018 01/17/2019 Inactive Lipitor 10 mg tablet RxNorm: 493544 TAKE ONE TABLET BY MOUTH AT BEDTIME 12/19/2018 01/17/2019 Inactive cyclobenzaprine 10 mg tablet RxNorm: 364000 1 Tablet(s) PO TID as needed for muscle spasm 11/19/2018 12/18/2018 Inactive Singulair 10 mg tablet RxNorm: 007808 1 Tablet(s) PO QD 11/19/2018 Inactive lisinopril 20 mg tablet RxNorm: 557090 TAKE ONE TABLET BY MOUTH DAILY, REPLACES 10 MG DOSE 11/15/2018 12/18/2018 Inactive hydrocodone 10 mg-acetaminophen 325 mg tablet RxNorm: 915085 1-2 Tablet(s) PO QID as needed for pain MUST LAST 30 DAYS 11/13/2018 12/12/2018 Inactiv e (Response to an electronic controlled substance refill request - RxReferenceNumber: [id number]) nystatin 100,000 unit/gram topical cream RxNorm: 966440 APPLY TO AFFECTED AREA(S) TWO TIMES A DAY 10/23/2018 11/06/2018 Inactive lisinopril 20 mg tablet RxNorm: 896706 1 Tablet(s) PO QD replac es 10mg dose 10/18/2018 11/14/2018 Inactive hydrocodone 10 mg-acetaminophen 325 mg tablet RxNorm: 810080 1-2 Tablet(s) QID as needed for pain MUST LAST 30 DAYS 10/08/2018 11/06/2018 Inactive (Response to an electronic controlled substance refill request - RxReferenceNumber: [id number]) lisinopril 10 mg tablet RxNorm: 333567 1 Tablet(s) PO QD 10/03/2018 0 01/21/2019 Inactive Celebrex 200 mg capsule RxNorm: 224158 TAKE ONE CAPSULE BY MOUT H TWICE A DAY 09/30/2018 05/04/2019 Inactive cyclobenzaprine 10 mg tablet RxNorm: 734733 TAKE ONE TA BLET BY MOUTH THREE TIMES A DAY NEEDED FOR MUSCLE SPASMS 09/30/2018 11/18/2018 Inactive doxepin 25 mg capsule RxNorm: 2355226 TAKE ONE CAPSULE B Y MOUTH EVERY NIGHT AT BEDTIME NEEDED 09/05/2018 10/16/2018 Inactive omeprazole 40 mg capsule,delayed release RxNorm: 993394 TAKE ONE CAPSULE BY MOUTH DAILY 09/05/2018 01/21/2019 Inactive furosemide 40 mg tablet RxNorm: 877186 TAKE ONE TABLET BY MOUTH EVERY MORNING NEEDED FOR EDEMA . TAKE WITH POTASSIUM 09/05/2018 11/03/2018 Inactive phentermine 37.5 mg tablet RxNorm: 399772 1 Tablet(s) PO QAM 201701/21/2019 Inactive doxepin 25 mg capsule RxNorm: 9967489 1 Capsule(s) PO QH S as needed for sleep TAKE ONE CAPSULE BY MOUTH EVERY NIGHT AT BEDTIME NEEDED 08/27/2018 09/04/2018 Inactive Keflex 500 mg capsule RxNorm: 776893 1 Capsule(s) PO TID 08/09/2018 1 10/19/2017 Inactive Diflucan 100 mg tablet RxNorm: 683146 1 Tablet(s) PO QD 08/09/2018 Inactive Premarin 1.25 mg tablet RxNorm: 060533 2 Tablet(s) PO QD 08/09/2018 0 05/04/2019 Inactive Zofran ODT 4 mg disintegrating tablet RxNorm: 046291 1 Tablet(s) PO Q4H as needed for nausea 08/09/2018 01/21/2019 Inactive metoprolol tartrate 100 mg tablet RxNorm: 916919 TAKE O NE TABLET BY MOUTH TWICE A DAY 2018 10/04/2018 Inactive doxepin 25 mg capsule RxNorm: 5418362 TAKE ONE CAPSULE B Y MOUTH EVERY NIGHT AT BEDTIME NEEDED 2018 08/26/2018 Inactive cyclobenzaprine 10 mg tablet RxNorm: 046362 TAKE ONE TA BLET BY MOUTH THREE TIMES A DAY NEEDED FOR MUSCLE SPASMS 2018 09/29/2018 Inactive hydrocodone 10 mg-acetaminophen 325 mg tablet RxNorm: 066588 1-2 Tablet(s) QID as needed for pain MUST LAST 30 DAYS 07/29/2018 08/27/2018 Inactive (Response to an electronic controlled substance refill request - RxReferenceNumber: [id number]) nystatin 100,000 unit/gram topical powder RxNorm: 241274 Applic ation TOP BID 07/22/2018 08/04/2018 Inactive doxepin 25 mg capsule RxNorm: 3392011 1 Capsule(s) PO QHS as needed 07/22/2018 08/05/2018 Inactive triamterene 75 mg-hydrochlorothiazide 50 mg tablet RxNorm: 3 48570 TAKE ONE TABLET BY MOUTH DAILY 07/05/2018 10/02/2018 Inactive duloxetine 60 mg capsule,delayed release RxNorm: 083454 TAKE ONE CAPSULE BY MOUTH DAILY 07/05/2018 09/02/2018 Inactive Klor-Con 8 mEq tablet,extended release RxNorm: 081520 T FARRUKH ONE TABLET BY MOUTH TWICE A DAY 07/05/2018 10/02/2018 Inactive Lipitor 10 mg tablet RxNorm: 043223 TAKE ONE TABLET BY MOUTH AT BEDTIME 07/05/2018 09/02/2018 Inactive allopurinol 300 mg tablet RxNorm: 474612 TAKE ONE TABLET BY LOPEZ TH DAILY 07/05/2018 10/02/2018 Inactive clonidine HCl 0.1 mg tablet RxNorm: 769496 TAKE ONE TAB LET BY MOUTH FOUR TIMES A DAY 07/05/2018 10/02/2018 Inactive hydrocodone 10 mg-acetaminophen 325 mg tablet RxNorm: 368485 1-2 Tablet(s) QID as needed for pain MUST LAST 30 DAYS 06/28/2018 07/27/2018 Inactive (Response to an electronic controlled substance refill request - RxReferenceNumber: [id number]) MediHoney (calcium alginate-honey) 4" X 5" bandage RxNorm: 1 Application TOP QD 06/17/2018 06/26/2018 Inactive honey-hydrocolloid dressing 4" X 5" RxNorm: 1 Application TOP QD 06/17/2018 07/16/2018 Inactive furosemide 40 mg tablet RxNorm: 501283 TAKE ONE TABLET BY MOUTH EVERY MORNING NEEDED FOR EDEMA . TAKE WITH POTASSIUM 06/10/2018 07/09/2018 Inactive This is a refill request. hydrocodone 10 mg-acetaminophen 325 mg tablet RxNorm: 335607 1-2 Tablet(s) QID as needed for pain MUST LAST 30 DAYS 05/30/2018 06/27/2018 Inactive (Response to an electronic controlled substance refill request - RxReferenceNumber: [id number]) acyclovir 800 mg tablet RxNorm: 536838 1 Tablet(s) PO 5x day 201705/22/2018 Inactive Premarin 1.25 mg tablet RxNorm: 769446 1-2 Tablet(s) PO QD 05/15/20 18 07/13/2018 Inactive cyclobenzaprine 10 mg tablet RxNorm: 031872 1 Tablet(s) PO TID as needed for muscle spasm 05/09/2018 05/08/2018 Inactive Medrol (Dustin) 4 mg tablets in a dose pack RxNorm: 456440 Tablet(s) PO As Directed 05/02/2018 06/16/2018 Inactive hydrocodone 10 mg-acetaminophen 325 mg tablet RxNorm: 540366 1-2 Tablet(s) QID as needed for pain MUST LAST 30 DAYS 04/30/2018 05/29/2018 Inactive (Response to an electronic controlled substance refill request - RxReferenceNumber: [id number]) duloxetine 60 mg capsule,delayed release RxNorm: 487769 TAKE ONE CAPSULE BY MOUTH DAILY 04/16/2018 05/15/2018 Inactive Celebrex 200 mg capsule RxNorm: 084448 TAKE ONE CAPSULE BY MOUT H TWICE A DAY 04/16/2018 06/14/2018 Inactive Singulair 10 mg tablet RxNorm: 207332 TAKE ONE TABLET BY MOUTH JOSÉ Y 04/16/2018 11/19/2018 Inactive Lipitor 10 mg tablet RxNorm: 407009 TAKE ONE TABLET BY MOUTH AT BEDTIME 04/16/2018 05/15/2018 Inactive hydrocodone 10 mg-acetaminophen 325 mg tablet RxNorm: 414782 1-2 Tablet(s) QID as needed for pain MUST LAST 30 DAYS 03/29/2018 04/27/2018 Inactive (Response to an electronic controlled substance refill request - RxReferenceNumber: [id number]) cyclobenzaprine 10 mg tablet RxNorm: 767996 1 Tablet(s) PO TID as needed for muscle spasm 03/18/2018 05/09/2018 Inactive omeprazole 40 mg capsule,delayed release RxNorm: 177739 1 Capsu le(s) PO QD 02/26/2018 08/24/2018 Inactive hydrocodone 10 mg-acetaminophen 325 mg tablet RxNorm: 431308 1-2 Tablet(s) QID as needed for pain MUST LAST 30 DAYS 02/26/2018 03/27/2018 Inactive (Response to an electronic controlled substance refill request - RxReferenceNumber: [id number]) metoprolol tartrate 100 mg tablet RxNorm: 259648 1 Tablet(s) PO BID 02/18/2018 08/05/2018 Inactive Lyrica 75 mg capsule RxNorm: 492906 1 Capsule(s) PO QHS 01/30/2018 Inactive phentermine 37.5 mg tablet RxNorm: 878695 1 Tablet(s) PO QAM 201706/16/2018 Inactive hydrocodone 10 mg-acetaminophen 325 mg tablet RxNorm: 593108 1-2 Tablet(s) QID as needed for pain MUST LAST 30 DAYS 01/29/2018 02/25/2018 Inactive (Response to an electronic controlled substance refill request - RxReferenceNumber: [id number]) Klor-Con 8 mEq tablet,extended release RxNorm: 589445 1 Tablet( s) PO BID 01/14/2018 07/04/2018 Inactive allopurinol 300 mg tablet RxNorm: 895663 1 Tablet(s) PO QD 01/15/2007/04/2018 Inactive Lipitor 10 mg tablet RxNorm: 302944 1 Tablet(s) PO QHS 01/14/201812/2017 Inactive triamterene 75 mg-hydrochlorothiazide 50 mg tablet RxNorm: 3 27895 1 Tablet(s) PO QD 01/14/2018 07/04/2018 Inactive hydrocodone 10 mg-acetaminophen 325 mg tablet RxNorm: 516973 1-2 Tablet(s) QID as needed for pain MUST LAST 30 DAYS 12/27/2017 01/25/2018 Inactive (Response to an electronic controlled substance refill request - RxReferenceNumber: [id number]) Onglyza 5 mg tablet RxNorm: 231955 1 Tablet(s) PO QD 12/18/201701/29 Inactive metformin 500 mg tablet RxNorm: 305792 1 Tablet(s) PO BID 12/11/2017 12/10/2017 Inactive metformin 500 mg tablet RxNorm: 401967 1 Tablet(s) PO BID 12/11/2017 12/17/2017 Inactive furosemide 40 mg tablet RxNorm: 295246 1 Tablet(s) PO Q AM prn edema--take with potassium 12/11/2017 06/08/2018 Inactive cyclobenzaprine 10 mg tablet RxNorm: 076531 1 Tablet(s) PO TID as needed for muscle spasm 12/11/2017 03/18/2018 Inactive hydrocodone 10 mg-acetaminophen 325 mg tablet RxNorm: 547885 1-2 Tablet(s) QID as needed for pain MUST LAST 30 DAYS 10/23/2017 11/21/2017 Inactive (Response to an electronic controlled substance refill request - RxReferenceNumber: [id number]) Lipitor 10 mg tablet RxNorm: 431626 1 Tablet(s) PO QHS 10/16/201703/2018 Inactive cyclobenzaprine 10 mg tablet RxNorm: 086147 1 Tablet(s) PO TID as needed for muscle spasm 10/09/2017 12/10/2017 Inactive hydroxyzine HCl 25 mg tablet RxNorm: 221557 1 Tablet(s) PO BID as needed for anxiety 09/20/2017 01/29/2018 Inactive Effexor XR 75 mg capsule,extended release RxNorm: 359963 1 Caps ule(s) PO QD 09/20/2017 01/29/2018 Inactive metoprolol tartrate 100 mg tablet RxNorm: 125477 1 Tablet(s) PO BID 08/20/2017 02/18/2018 Inactive baclofen 20 mg tablet RxNorm: 461925 1 Tablet(s) PO TID as needed for muscle spasm 08/20/2017 01/21/2019 Inactive clonidine HCl 0.1 mg tablet RxNorm: 121809 1 Tablet(s) PO QID 08/2005/16/2018 Inactive Seroquel 25 mg tablet RxNorm: 658873 1 Tablet(s) PO QHS 08/17/2017 Inactive Seroquel 25 mg tablet RxNorm: 866031 1 Tablet(s) PO QHS 08/17/2017 Inactive Diflucan 100 mg tablet RxNorm: 541146 TAKE ONE TABLET BY MOUTH JOSÉ Y 07/25/2017 08/07/2017 Inactive hydrocodone 10 mg-acetaminophen 325 mg tablet RxNorm: 734544 1-2 Tablet(s) QID as needed for pain MUST LAST 30 DAYS 07/19/2017 08/17/2017 Inactive (Response to an electronic controlled substance refill request - RxReferenceNumber: [id number]) clindamycin 300 mg capsule RxNorm: 783838 1 Capsule(s) PO TID 07/1907/28/2017 Inactive clotrimazole-betamethasone 1 %-0.05 % topical cream RxNorm: 558573 Application TOP BID to elbow rash 07/19/2017 06/16/2018 Inactive Singulair 10 mg tablet RxNorm: 136165 Tablet(s) TAKE ONE TABLET BY MOUTH DAILY 07/18/2017 04/13/2018 Inactive triamterene 75 mg-hydrochlorothiazide 50 mg tablet RxNorm: 3 91740 1 Tablet(s) PO QD 07/18/2017 01/14/2018 Inactive Celebrex 200 mg capsule RxNorm: 018535 Capsule(s) TAKE ONE CAPSULE BY MOUTH TWICE A DAY 07/18/2017 10/15/2017 Inactive hydrocodone 10 mg-acetaminophen 325 mg tablet RxNorm: 659027 1-2 Tablet(s) QID as needed for pain MUST LAST 30 DAYS 06/19/2017 07/18/2017 Inactive (Response to an electronic controlled substance refill request - RxReferenceNumber: [id number]) hydrocodone 10 mg-acetaminophen 325 mg tablet RxNorm: 756445 1-2 Tablet(s) QID as needed for pain MUST LAST 30 DAYS 06/19/2017 06/18/2017 Inactive (Response to an electronic controlled substance refill request - RxReferenceNumber: [id number]) baclofen 20 mg tablet RxNorm: 492879 1 Tablet(s) PO TID as needed for muscle spasm 06/18/2017 08/20/2017 Inactive Medrol (Dustin) 4 mg tablets in a dose pack RxNorm: 242703 Tablet(s) PO As Directed 06/05/2017 07/18/2017 Inactive omeprazole 40 mg capsule,delayed release RxNorm: 469641 1 Capsu le(s) PO QD 04/20/2017 10/16/2017 Inactive Premarin 1.25 mg tablet RxNorm: 101720 1-2 Tablet(s) PO QD 04/11/20 17 05/15/2018 Inactive duloxetine 60 mg capsule,delayed release RxNorm: 323511 1 Capsu le(s) PO QD 04/11/2017 09/19/2017 Inactive furosemide 40 mg tablet RxNorm: 892062 1 Tablet(s) PO Q AM prn edema--take with potassium 04/11/2017 12/11/2017 Inactive Klor-Con 8 mEq tablet,extended release RxNorm: 956926 1 Tablet( s) PO BID 04/11/2017 01/14/2018 Inactive Lipitor 10 mg tablet RxNorm: 020231 1 Tablet(s) PO QHS 04/11/201702/2018 Inactive amlodipine 5 mg-benazepril 20 mg capsule RxNorm: 360334 1 Capsu le(s) PO QD 04/11/2017 01/29/2018 Inactive allopurinol 300 mg tablet RxNorm: 242390 1 Tablet(s) PO QD 04/11/20 17 01/14/2018 Inactive clonidine HCl 0.1 mg tablet RxNorm: 281812 1 Tablet(s) PO QID 04/0508/19/2017 Inactive baclofen 20 mg tablet RxNorm: 548566 1 Tablet(s) PO TID as needed for muscle spasm 04/02/2017 06/18/2017 Inactive Premarin 1.25 mg tablet RxNorm: 004094 1-2 Tablet(s) PO QD 03/20/20 17 04/10/2017 Inactive hydrocodone 10 mg-acetaminophen 325 mg tablet RxNorm: 664722 1-2 Tablet(s) QID as needed for pain MUST LAST 30 DAYS 03/14/2017 01/21/2019 Inactive (Response to an electronic controlled substance refill request - RxReferenceNumber: [id number]) metoprolol tartrate 100 mg tablet RxNorm: 288875 1 Tablet(s) PO BID 02/12/2017 08/20/2017 Inactive hydrocodone 10 mg-acetaminophen 325 mg tablet RxNorm: 370395 1-2 Tablet(s) QID as needed for pain MUST LAST 30 DAYS 02/08/2017 03/09/2017 Inactive (Response to an electronic controlled substance refill request - RxReferenceNumber: [id number]) metoprolol tartrate 100 mg tablet RxNorm: 118125 TAKE O NE TABLET BY MOUTH TWICE A DAY 01/11/2017 02/12/2017 Inactive metoprolol tartrate 100 mg tablet RxNorm: 101096 1 Tablet(s) PO BID 12/18/2016 12/17/2016 Inactive metoprolol tartrate 100 mg tablet RxNorm: 002047 1 Tablet(s) PO BID 12/18/2016 01/10/2017 Inactive furosemide 40 mg tablet RxNorm: 225781 1 Tablet(s) PO Q AM prn edema--take with potassium 12/13/2016 02/10/2017 Inactive amitriptyline 100 mg tablet RxNorm: 268379 1 Tablet(s) PO QHS 11/2812/12/2016 Inactive baclofen 20 mg tablet RxNorm: 163405 1 Tablet(s) PO TID as needed for muscle spasm 11/14/2016 04/01/2017 Inactive triamterene 75 mg-hydrochlorothiazide 50 mg tablet RxNorm: 3 00046 1 Tablet(s) PO QD 11/14/2016 11/13/2016 Inactive metolazone 2.5 mg tablet RxNorm: 813030 TAKE ONE TABLET BY MOUTH DAILY NEEDED FOR EDEMA 11/14/2016 12/12/2016 Inactive triamterene 75 mg-hydrochlorothiazide 50 mg tablet RxNorm: 3 35806 1 Tablet(s) PO QD 11/14/2016 07/18/2017 Inactive amitriptyline 50 mg tablet RxNorm: 704182 TAKE ONE TABL ET BY MOUTH AT BEDTIME NEEDED FOR SLEEP 11/14/2016 11/27/2016 Inactive Cymbalta 60 mg capsule,delayed release RxNorm: 732333 1 Capsule (s) PO QHS 11/14/2016 12/12/2016 Inactive clonidine HCl 0.1 mg tablet RxNorm: 237799 1 Tablet(s) PO QID 11/1304/04/2017 Inactive amitriptyline 50 mg tablet RxNorm: 537402 1 Tablet(s) P O QHS as needed for sleep 11/01/2016 11/27/2016 Inactive duloxetine 60 mg capsule,delayed release RxNorm: 772806 TAKE ONE CAPSULE BY MOUTH DAILY 10/20/2016 01/17/2017 Inactive allopurinol 300 mg tablet RxNorm: 697427 TAKE ONE TABLET BY LOPEZ TH DAILY 10/20/2016 01/16/2017 Inactive Lyrica 75 mg capsule RxNorm: 928569 TAKE ONE CAPSULE BY MOUTH EVERY NIGHT AT BEDTIME 10/20/2016 12/10/2016 Inactive Klor-Con 8 mEq tablet,extended release RxNorm: 949688 T FARRUKH ONE TABLET BY MOUTH TWICE A DAY 10/20/2016 01/17/2017 Inactive Celebrex 200 mg capsule RxNorm: 079641 TAKE ONE CAPSULE BY MOUT H TWICE A DAY 10/20/2016 07/18/2017 Inactive Bystolic 10 mg tablet RxNorm: 049962 TAKE ONE TABLET BY MOUTH EVERY NIGHT AT BEDTIME 10/20/2016 12/17/2016 Inactive amlodipine 5 mg-benazepril 20 mg capsule RxNorm: 773891 TAKE ONE CAPSULE BY MOUTH EVERY NIGHT AT BEDTIME -- TO REPLACE AMLODOPINE 10/20/20162016 Inactive Lipitor 10 mg tablet RxNorm: 668047 TAKE ONE TABLET BY MOUTH EVERY NIGHT AT BEDTIME 10/20/2016 01/17/2017 Inactive alprazolam 0.5 mg tablet RxNorm: 599514 3 Tablet(s) PO QHS as needed for sleep/anxiety 09/20/2016 10/31/2016 Inactive Tamiflu 75 mg capsule RxNorm: 087891 1 Capsule(s) PO QD 09/19/2016 Inactive Lyrica 75 mg capsule RxNorm: 401482 1 Capsule(s) PO QHS 09/19/2016 Inactive prednisone 20 mg tablet RxNorm: 945177 1 Tablet(s) PO QD 08/10/2016 1 10/17/2015 Inactive doxycycline hyclate 100 mg capsule RxNorm: 8762965 1 Capsule(s) PO BID 08/10/2016 08/19/2016 Inactive Medrol (Dustin) 4 mg tablets in a dose pack RxNorm: 034701 Tablet(s) PO As Directed 07/31/2016 08/22/2016 Inactive Singulair 10 mg tablet RxNorm: 084850 TAKE ONE TABLET BY MOUTH JOSÉ Y 07/27/2016 07/18/2017 Inactive hydrocodone 10 mg-acetaminophen 325 mg tablet RxNorm: 887868 1-2 Tablet(s) QID as needed for pain MUST LAST 30 DAYS 07/26/2016 08/24/2016 Inactive (Response to an electronic controlled substance refill request - RxReferenceNumber: [id number]) alprazolam 0.5 mg tablet RxNorm: 493351 3 Tablet(s) PO QHS as needed for anxiety or sleep 07/26/2016 09/20/2016 Inactive clindamycin 300 mg capsule RxNorm: 138443 1 Capsule(s) PO TID 07/2007/29/2016 Inactive Diflucan 100 mg tablet RxNorm: 749243 1 Tablet(s) PO QD 07/20/2016 Inactive Levaquin 500 mg tablet RxNorm: 439722 1 Tablet(s) PO QD 07/17/2016 Inactive Levaquin 500 mg tablet RxNorm: 633894 1 Tablet(s) PO QD 07/10/2016 Inactive Levaquin 500 mg tablet RxNorm: 525015 1 Tablet(s) PO QD 07/10/2016 Inactive mupirocin 2 % topical ointment RxNorm: 295780 TOP Apply topically to affected areas twice daily 07/06/2016 09/18/2016 Inactive Singulair 10 mg tablet RxNorm: 846214 TAKE ONE TABLET BY MOUTH JOSÉ Y 06/21/2016 01/21/2019 Inactive alprazolam 0.5 mg tablet RxNorm: 000233 TAKE THREE TABL ETS BY MOUTH AT BEDTIME NEEDED FOR SLEEP OR STRESS 05/22/2016 06/20/2016 Inactive triamterene 75 mg-hydrochlorothiazide 50 mg tablet RxNorm: 3 17296 1 Tablet(s) PO QD 04/26/2016 10/21/2016 Inactive Premarin 1.25 mg tablet RxNorm: 616302 1-2 Tablet(s) PO QD 04/26/20 16 03/20/2017 Inactive Klor-Con 8 mEq tablet,extended release RxNorm: 179839 1 Tablet( s) PO BID 04/26/2016 10/19/2016 Inactive Celebrex 200 mg capsule RxNorm: 217665 1 Capsule(s) PO BID TAKE ONE CAPSULE BY MOUTH EVERY DAY 04/26/2016 10/19/2016 Inactive Lipitor 10 mg tablet RxNorm: 440868 1 Tablet(s) PO QHS 04/26/201605/2017 Inactive allopurinol 300 mg tablet RxNorm: 139933 1 Tablet(s) PO QD TAKE ONE TABLET BY MOUTH EVERY DAY 04/26/2016 10/19/2016 Inactive amlodipine 5 mg-benazepril 20 mg capsule RxNorm: 812951 1 Capsule(s) PO QHS replaces amlodopine 04/26/2016 10/19/2016 Inactive duloxetine 60 mg capsule,delayed release RxNorm: 506339 1 Capsu le(s) PO QD 04/26/2016 10/19/2016 Inactive Bystolic 10 mg tablet RxNorm: 962123 1 Tablet(s) PO QHS 04/26/2016 Inactive Singulair 10 mg tablet RxNorm: 321553 1 Tablet(s) PO QD TAKE ONE TABLET BY MOUTH DAILY 04/26/2016 06/20/2016 Inactive clonidine HCl 0.1 mg tablet RxNorm: 752018 1 Tablet(s) PO QID 04/2610/22/2016 Inactive hydrocodone 10 mg-acetaminophen 325 mg tablet RxNorm: 662862 1-2 Tablet(s) QID as needed for pain TAKE ONE TO TWO TABLETS BY MOUTH FOUR TIMES A DAY . MUST LAST 30 DAYS 03/31/2016 04/29/2016 Inactive (Response to an electronic controlled substance refill request - RxReferenceNumber: [id number]) Klor-Con 8 mEq tablet,extended release RxNorm: 592096 T FARRUKH ONE TABLET BY MOUTH TWICE A DAY 03/24/2016 04/22/2016 Inactive prednisone 20 mg tablet RxNorm: 825342 1 Tablet(s) PO QD 03/09/2016 0 03/08/2016 Inactive prednisone 20 mg tablet RxNorm: 129982 1 Tablet(s) PO QD 03/09/2016 0 03/13/2016 Inactive alprazolam 0.5 mg tablet RxNorm: 670935 3 Tablet(s) PO QHS as needed for sleep/stress 03/02/2016 01/21/2019 Inactive mupirocin 2 % topical ointment RxNorm: 051654 TOP twice daily to affected areas of face and neck 02/21/2016 04/25/2016 Inactive clonidine HCl 0.1 mg tablet RxNorm: 255383 TAKE ONE TAB LET BY MOUTH FOUR TIMES A DAY 02/15/2016 03/15/2016 Inactive clonidine HCl 0.1 mg tablet RxNorm: 311560 1 Tablet(s) PO QID 02/1404/25/2016 Inactive Premarin 1.25 mg tablet RxNorm: 950394 1-2 Tablet(s) PO QD 02/15/20 16 03/15/2016 Inactive Klor-Con 8 mEq tablet,extended release RxNorm: 886903 T FARRUKH ONE TABLET BY MOUTH TWICE A DAY 02/15/2016 03/15/2016 Inactive potassium chloride ER 20 mEq tablet,extended release(part/cr yst) RxNorm: 998939 2 Tablet(s) PO BID 02/15/2016 03/15/2016 Inactive Macrobid 100 mg capsule RxNorm: 483301 1 Capsule(s) PO BID 01/24/2001/30/2016 Inactive prednisone 20 mg tablet RxNorm: 534568 Take 3tabs PO QD x 2 days, then 2 tabs PO QD x 2 days, then 1 tab PO QD x 2 days, then 1/2 tab PO QDy x 2 days 12/23/2015 04/25/2016 Inactive Klor-Con 8 mEq tablet,extended release RxNorm: 667277 T FARRUKH ONE TABLET BY MOUTH TWICE A DAY 12/20/2015 02/14/2016 Inactive alprazolam 1 mg tablet RxNorm: 728250 1 1/2 Tablet(s) PO QHS 201501/23/2016 Inactive nystatin 100,000 unit/gram topical cream RxNorm: 678773 APPLY TO AFFECTED AREA(S) TWO TIMES A DAY 11/30/2015 12/14/2015 Inactive Singulair 10 mg tablet RxNorm: 674554 TAKE ONE TABLET BY MOUTH JOSÉ Y 11/18/2015 04/25/2016 Inactive allopurinol 300 mg tablet RxNorm: 278448 1 Tablet(s) PO QD TAKE ONE TABLET BY MOUTH EVERY DAY 10/26/2015 04/22/2016 Inactive Singulair 10 mg tablet RxNorm: 842550 TAKE ONE TABLET BY MOUTH JOSÉ Y 10/26/2015 11/17/2015 Inactive duloxetine 60 mg capsule,delayed release RxNorm: 922871 1 Capsu le(s) PO QD 10/26/2015 04/22/2016 Inactive triamterene 75 mg-hydrochlorothiazide 50 mg tablet RxNorm: 3 87861 1 Tablet(s) PO QD 10/26/2015 11/14/2016 Inactive potassium chloride ER 20 mEq tablet,extended release(part/cr yst) RxNorm: 088911 2 Tablet(s) PO BID 10/26/2015 02/14/2016 Inactive Lipitor 10 mg tablet RxNorm: 308871 1 Tablet(s) PO QHS 10/26/2015 Inactive amlodipine 5 mg-benazepril 20 mg capsule RxNorm: 756564 1 Capsule(s) PO QHS replaces amlodopine 10/26/2015 04/22/2016 Inactive Bystolic 10 mg tablet RxNorm: 629052 1 Tablet(s) PO QHS 10/26/2015 Inactive amlodipine 5 mg-benazepril 20 mg capsule RxNorm: 928236 1 Capsule(s) PO QHS replaces amlodopine 10/06/2015 10/25/2015 Inactive amlodipine 5 mg tablet RxNorm: 511581 1 Tablet(s) PO QHS 09/30/2015 0 04/25/2016 Inactive metolazone 2.5 mg tablet RxNorm: 307797 TAKE ONE TABLET BY MOUTH DAILY NEEDED FOR EDEMA 09/30/2015 01/21/2019 Inactive duloxetine 60 mg capsule,delayed release RxNorm: 701201 1 Capsu le(s) PO QD 09/30/2015 10/25/2015 Inactive cephalexin 500 mg capsule RxNorm: 110184 1 Capsule(s) PO BID 201509/23/2015 Inactive mupirocin 2 % topical ointment RxNorm: 984345 TOP twice daily to affected areas of face and neck 09/14/2015 02/20/2016 Inactive baclofen 20 mg tablet RxNorm: 135327 1 Tablet(s) PO TID as needed for muscle spasm 09/01/2015 11/14/2016 Inactive clonidine HCl 0.1 mg tablet RxNorm: 409574 1 Tablet(s) PO QID 09/0102/14/2016 Inactive alprazolam 1 mg tablet RxNorm: 667320 1 1/2 Tablet(s) PO QHS 201409/09/2015 Inactive baclofen 20 mg tablet RxNorm: 280775 1 Tablet(s) PO TID as needed for muscle spasm 07/23/2015 09/01/2015 Inactive omeprazole 40 mg capsule,delayed release RxNorm: 553299 1 Capsu le(s) PO QD 07/23/2015 04/25/2016 Inactive alprazolam 1 mg tablet RxNorm: 853218 1 1/2 Tablet(s) PO QHS 201408/10/2015 Inactive Bystolic 10 mg tablet RxNorm: 278803 1 Tablet(s) PO BID 06/24/2015 Inactive allopurinol 300 mg tablet RxNorm: 851175 1 Tablet(s) PO QD TAKE ONE TABLET BY MOUTH EVERY DAY 06/23/2015 10/20/2015 Inactive alprazolam 1 mg tablet RxNorm: 532283 1 1/2 Tablet(s) PO QHS 201407/06/2015 Inactive clonidine HCl 0.1 mg tablet RxNorm: 901321 1 Tablet(s) PO QID 06/0209/01/2015 Inactive clonidine HCl 0.1 mg tablet RxNorm: 304957 1 Tablet(s) PO QID 06/0206/01/2015 Inactive Cymbalta 60 mg capsule,delayed release RxNorm: 436164 1 Capsule (s) PO QHS 06/02/2015 08/30/2015 Inactive Cymbalta 60 mg capsule,delayed release RxNorm: 491173 1 Capsule (s) PO QHS 06/02/2015 06/01/2015 Inactive clonidine HCl 0.1 mg tablet RxNorm: 139784 1 Tablet(s) PO TID 05/3106/01/2015 Inactive replaces 0.2mg dose metolazone 2.5 mg tablet RxNorm: 587029 TAKE ONE TABLET BY MOUTH DAILY NEEDED FOR EDEMA 05/21/2015 06/19/2015 Inactive Singulair 10 mg tablet RxNorm: 457858 TAKE ONE TABLET BY MOUTH JOSÉ Y 05/21/2015 10/17/2015 Inactive Cymbalta 30 mg capsule,delayed release RxNorm: 581674 1 Capsule (s) PO QHS 05/20/2015 11/14/2016 Inactive betamethasone valerate 0.1 % topical cream RxNorm: 096625 Appli cation TOP BID 05/10/2015 04/25/2016 Inactive Bactroban 2 % topical ointment RxNorm: 775288 Application TOP BID 0 05/10/2015 06/20/2015 Inactive baclofen 20 mg tablet RxNorm: 572874 1 Tablet(s) PO TID as needed 0 04/26/2015 07/23/2015 Inactive Lipitor 10 mg tablet RxNorm: 599406 1 Tablet(s) PO QHS 04/26/201508/2016 Inactive clonidine HCl 0.1 mg tablet RxNorm: 054734 1 Tablet(s) PO TID 04/2605/30/2015 Inactive replaces 0.2mg dose Klor-Con 8 mEq tablet,extended release RxNorm: 820877 1 Tablet( s) PO BID 04/26/2015 04/25/2016 Inactive metolazone 2.5 mg tablet RxNorm: 915998 1 Tablet(s) PO QD as ne eded for edema 04/26/2015 04/25/2015 Inactive triamterene 75 mg-hydrochlorothiazide 50 mg tablet RxNorm: 3 72617 1 Tablet(s) PO QD 04/26/2015 10/22/2015 Inactive Premarin 1.25 mg tablet RxNorm: 336625 1-2 Tablet(s) PO QD 04/26/20 15 10/22/2015 Inactive Bystolic 10 mg tablet RxNorm: 220348 1 Tablet(s) PO QAM TAKE ONE TABLET BY MOUTH EVERY MORNING 04/23/2015 06/23/2015 Inactive clonidine HCl 0.1 mg tablet RxNorm: 535239 1 Tablet(s) PO TID 03/2304/25/2015 Inactive replaces 0.2mg dose nystatin 100,000 unit/gram topical cream RxNorm: 007076 Applica tion TOP BID 03/23/2015 06/20/2015 Inactive baclofen 20 mg tablet RxNorm: 351881 1 Tablet(s) PO TID as needed 0 03/23/2015 04/25/2015 Inactive Premarin 1.25 mg tablet RxNorm: 401122 1-2 Tablet(s) PO QD 03/23/20 15 04/25/2015 Inactive Klor-Con 8 mEq tablet,extended release RxNorm: 475904 1 Tablet( s) PO BID 03/23/2015 04/25/2015 Inactive cefdinir 300 mg capsule RxNorm: 977821 2 Capsule(s) PO QD 03/16/2015 03/25/2015 Inactive baclofen 20 mg tablet RxNorm: 148271 1 Tablet(s) PO TID as needed 0 03/02/2015 03/22/2015 Inactive allopurinol 300 mg tablet RxNorm: 893647 1 Tablet(s) PO QD TAKE ONE TABLET BY MOUTH EVERY DAY 02/22/2015 05/22/2015 Inactive Klor-Con M20 mEq tablet,extended release RxNorm: 097139 2 Tablet(s) PO BID to use with lasix 02/22/2015 06/20/2015 Inactive clonidine HCl 0.1 mg tablet RxNorm: 136955 1 Tablet(s) PO TID 02/1903/22/2015 Inactive replaces 0.2mg dose Lipitor 10 mg tablet RxNorm: 706068 1 Tablet(s) PO QHS 01/20/201506/2015 Inactive Lipitor 10 mg tablet RxNorm: 475118 1 Tablet(s) PO QHS 01/20/2015 Inactive Singulair 10 mg tablet RxNorm: 823179 1 Tablet(s) PO QD TAKE ONE TABLET BY MOUTH EVERY DAY 11/20/2014 05/18/2015 Inactive Lipitor 10 mg tablet RxNorm: 623346 1 Tablet(s) PO QHS 11/20/201408/2015 Inactive allopurinol 300 mg tablet RxNorm: 211260 1 Tablet(s) PO QD TAKE ONE TABLET BY MOUTH EVERY DAY 11/20/2014 02/16/2015 Inactive Bystolic 10 mg tablet RxNorm: 873691 1 Tablet(s) PO QAM TAKE ONE TABLET BY MOUTH EVERY MORNING 11/20/2014 04/22/2015 Inactive Klor-Con 8 mEq tablet,extended release RxNorm: 007874 1 Tablet( s) PO BID 11/20/2014 02/17/2015 Inactive baclofen 20 mg tablet RxNorm: 978413 1 Tablet(s) PO TID as needed 0 11/20/2014 01/21/2019 Inactive baclofen 20 mg tablet RxNorm: 295872 1 Tablet(s) PO TID as needed 0 10/27/2014 11/19/2014 Inactive baclofen 20 mg tablet RxNorm: 652737 1 Tablet(s) PO TID as needed 0 10/26/2014 03/01/2015 Inactive allopurinol 300 mg tablet RxNorm: 398940 1 Tablet(s) PO QD TAKE ONE TABLET BY MOUTH EVERY DAY 10/26/2014 11/20/2014 Inactive Bystolic 10 mg tablet RxNorm: 879430 1 Tablet(s) PO QAM TAKE ONE TABLET BY MOUTH EVERY MORNING 10/26/2014 11/20/2014 Inactive clonidine HCl 0.1 mg tablet RxNorm: 677259 1 Tablet(s) PO TID 09/2805/27/2019 Inactive replaces 0.2mg dose clonidine HCl 0.1 mg tablet RxNorm: 240455 1 Tablet(s) PO TID 09/2802/18/2015 Inactive replaces 0.2mg dose baclofen 20 mg tablet RxNorm: 960622 1 Tablet(s) PO TID as needed 1 11/01/2013 08/30/2014 Inactive Lipitor 10 mg tablet RxNorm: 030711 1 Tablet(s) PO QHS 08/31/2014 Inactive baclofen 20 mg tablet RxNorm: 137398 1 Tablet(s) PO TID as needed 1 11/01/2013 10/26/2014 Inactive triamterene 75 mg-hydrochlorothiazide 50 mg tablet RxNorm: 3 44052 1 Tablet(s) PO QD 08/31/2014 02/26/2015 Inactive Klor-Con 8 mEq tablet,extended release RxNorm: 547735 1 Tablet( s) PO BID 08/31/2014 11/20/2014 Inactive baclofen 20 mg tablet RxNorm: 438106 1 Tablet(s) PO TID as needed 1 09/30/2013 10/25/2014 Inactive baclofen 20 mg tablet RxNorm: 998281 1 Tablet(s) PO TID as needed 1 09/30/2013 08/31/2014 Inactive omeprazole 40 mg capsule,delayed release RxNorm: 477531 1 Capsu le(s) PO QD 07/21/2014 07/23/2015 Inactive Flonase 50 mcg/actuation nasal spray,suspension RxNorm: 8963 23 1 [place] NASAL BID 07/15/2014 04/09/2017 Inactive hydrocodone 10 mg-acetaminophen 325 mg tablet RxNorm: 505149 1-2 Tablet(s) QID as needed for pain TAKE ONE TO TWO TABLETS BY MOUTH FOUR TIMES A DAY . MUST LAST 30 DAYS 06/30/2014 07/27/2014 Inactive (Response to an electronic controlled substance refill request - RxReferenceNumber: [id number]) baclofen 20 mg tablet RxNorm: 446092 1 Tablet(s) PO TID as needed 1 07/31/2014 Inactive Singulair 10 mg tablet RxNorm: 719893 1 Tablet(s) PO QD TAKE ONE TABLET BY MOUTH EVERY DAY 05/25/2014 11/20/2014 Inactive Bystolic 10 mg tablet RxNorm: 213767 TAKE ONE TABLET BY MOUTH E VERY MORNING 05/25/2014 09/21/2014 Inactive allopurinol 300 mg tablet RxNorm: 570489 1 Tablet(s) PO QD TAKE ONE TABLET BY MOUTH EVERY DAY 05/25/2014 10/21/2014 Inactive baclofen 20 mg tablet RxNorm: 191807 1 Tablet(s) PO TID as needed 0 05/25/2014 06/29/2014 Inactive allopurinol 300 mg tablet RxNorm: 874652 TAKE ONE TABLET BY LOPEZ TH EVERY DAY 05/25/2014 09/21/2014 Inactive Singulair 10 mg tablet RxNorm: 954455 1 Tablet(s) PO QD TAKE ONE TABLET BY MOUTH EVERY DAY 05/25/2014 05/24/2014 Inactive Bystolic 10 mg tablet RxNorm: 283731 1 Tablet(s) PO QAM TAKE ONE TABLET BY MOUTH EVERY MORNING 05/25/2014 10/21/2014 Inactive metolazone 2.5 mg tablet RxNorm: 472244 1 Tablet(s) PO QD as ne eded for edema 05/18/2014 04/25/2015 Inactive Lasix 40 mg tablet RxNorm: 133090 1 Tablet(s) PO QAM s rajwindervanesa take potassium supplementation with this medication 05/14/2014 05/17/2014 Inactive hydrocodone 10 mg-acetaminophen 325 mg tablet RxNorm: 897964 1-2 Tablet(s) QID as needed for pain TAKE ONE TO TWO TABLETS BY MOUTH FOUR TIMES A DAY . MUST LAST 30 DAYS 05/07/2014 06/05/2014 Inactive (Response to an electronic controlled substance refill request - RxReferenceNumber: [id number]) alprazolam 0.5 mg tablet RxNorm: 840696 TAKE ONE TABLET BY MOUTH TWICE A DAY , MUST LAST 30 DAYS 05/07/2014 05/22/2016 Inactive (Response to a n electronic controlled substance refill request - RxReferenceNumber: [id number]) diclofenac sodium 75 mg tablet,delayed release RxNorm: 10775 6 1 Tablet(s) PO BID for pain 04/24/2014 07/20/2014 Inactive Celebrex 200 mg capsule RxNorm: 336296 TAKE ONE CAPSULE BY MOUT H EVERY DAY 04/24/2014 07/20/2014 Inactive alprazolam 0.5 mg tablet RxNorm: 086318 TAKE ONE TABLET BY MOUTH TWICE A DAY , MUST LAST 30 DAYS 03/24/2014 04/22/2014 Inactive (Response to a n electronic controlled substance refill request - RxReferenceNumber: [id number]) diclofenac sodium 75 mg tablet,delayed release RxNorm: 71660 6 1 Tablet(s) PO BID for pain 03/24/2014 04/24/2014 Inactive clonidine HCl 0.1 mg tablet RxNorm: 054573 1 Tablet(s) PO TID 03/2409/28/2014 Inactive replaces 0.2mg dose Klor-Con 8 mEq tablet,extended release RxNorm: 885612 1 Tablet( s) PO BID 02/26/2014 08/31/2014 Inactive diclofenac sodium 75 mg tablet,delayed release RxNorm: 31091 6 1 Tablet(s) PO BID for pain 02/25/2014 03/24/2014 Inactive hydrocodone 10 mg-acetaminophen 325 mg tablet RxNorm: 140309 1-2 Tablet(s) QID as needed for pain TAKE ONE TO TWO TABLETS BY MOUTH FOUR TIMES A DAY . MUST LAST 30 DAYS 02/25/2014 03/26/2014 Inactive (Response to an electronic controlled substance refill request - RxReferenceNumber: [id number]) alprazolam 0.5 mg tablet RxNorm: 398064 Tablet(s) PO BI D as needed for anxiety TAKE ONE TABLET BY MOUTH TWICE A DAY , MUST LAST 30 DAYS 02/25/2014 Inactive (Response to an electronic controlled [place] bstance refill request - RxReferenceNumber: [id number]) [AttnRPh: Saving apply/adjudicate RxGRP:SG20 RxBIN:[id number] RxN: ID#:[id number]] alprazolam 0.5 mg tablet RxNorm: 268947 Tablet(s) TAKE ONE TABLET BY MOUTH TWICE A DAY , MUST LAST 30 DAYS 01/27/2014 02/24/2014 Inactive (Respo nse to an electronic controlled substance refill request - RxReferenceNumber: [id number]) [AttnRPh: Saving apply/adjudicate RxGRP:SG20 RxBIN:[id number] RxPCN: ID#:[id number]] hydrocodone 10 mg-acetaminophen 325 mg tablet RxNorm: 348940 1-2 Tablet(s) QID as needed for pain TAKE ONE TO TWO TABLETS BY MOUTH FOUR TIMES A DAY . MUST LAST 30 DAYS 01/27/2014 02/24/2014 Inactive (Response to an electronic controlled substance refill request - RxReferenceNumber: [id number]) alprazolam 0.5 mg tablet RxNorm: 578635 TAKE ONE TABLET BY MOUTH TWICE A DAY , MUST LAST 30 DAYS 01/27/2014 01/26/2014 Inactive (Response to a n electronic controlled substance refill request - RxReferenceNumber: [id number]) Premarin 1.25 mg tablet RxNorm: 929436 1-2 Tablet(s) PO QD 01/28/20 14 07/25/2014 Inactive alprazolam 0.5 mg tablet RxNorm: 489125 TAKE ONE TABLET BY MOUTH TWICE A DAY , MUST LAST 30 DAYS 01/27/2014 01/27/2014 Inactive (Response to a n electronic controlled substance refill request - RxReferenceNumber: [id number]) hydrocodone 10 mg-acetaminophen 325 mg tablet RxNorm: 060109 TAKE ONE TO TWO TABLETS BY MOUTH FOUR TIMES A DAY . MUST LAST 30 DAYS 01/27/20142013 Inactive (Response to an electronic controlled [place] bstance refill request - RxReferenceNumber: [id number]) Celebrex 200 mg capsule RxNorm: 997888 1 Capsule(s) PO QD TAKE ONE CAPSULE BY MOUTH EVERY DAY 12/29/2013 04/27/2014 Inactive hydrocodone 10 mg-acetaminophen 325 mg tablet RxNorm: 940772 1-2 Tablet(s) PO QID as needed for severe pain 12/29/2013 01/27/2014 Inactive allopurinol 300 mg tablet RxNorm: 028794 1 Tablet(s) PO QD TAKE ONE TABLET BY MOUTH EVERY DAY 12/29/2013 05/24/2014 Inactive alprazolam 0.5 mg tablet RxNorm: 014535 TAKE ONE TABLET BY MOUTH TWICE A DAY , MUST LAST 30 DAYS 12/29/2013 01/27/2014 Inactive (Response to a n electronic controlled substance refill request - RxReferenceNumber: [id number]) Celebrex 200 mg capsule RxNorm: 519881 1 Capsule(s) PO QD TAKE ONE CAPSULE BY MOUTH EVERY DAY 12/29/2013 12/29/2013 Inactive Bystolic 10 mg tablet RxNorm: 169051 1 Tablet(s) PO QAM TAKE ONE TABLET BY MOUTH EVERY MORNING 12/29/2013 05/24/2014 Inactive Bystolic 10 mg tablet RxNorm: 624012 1 Tablet(s) PO QAM TAKE ONE TABLET BY MOUTH EVERY MORNING 12/29/2013 12/29/2013 Inactive Singulair 10 mg tablet RxNorm: 408649 1 Tablet(s) PO QD TAKE ONE TABLET BY MOUTH EVERY DAY 12/29/2013 05/25/2014 Inactive hydrocodone 10 mg-acetaminophen 325 mg tablet RxNorm: 610346 TAKE ONE TO TWO TABLETS BY MOUTH FOUR TIMES A DAY . MUST LAST 30 DAYS 12/29/20132013 Inactive (Response to an electronic controlled [place] bstance refill request - RxReferenceNumber: [id number]) Trazadone 75mg Tablet RxNorm: 1 Tablet(s) PO QHS as needed 03/23/2014 Inactive Trazadone 75mg Tablet RxNorm: 1 Tablet(s) PO QHS 12/24/20132014 Inactive Soma 350 mg tablet RxNorm: 121189 Tablet(s) PO TAKE ON E TABLET BY MOUTH THREE TIMES A DAY NEEDED FOR MUSCLE SPASMS. THIS MUST LAST 30 DAYS BETWEEN REFILLS. 12/10/2013 12/22/2013 Inactive (Appended: Cont rolled substance eRx refill - RxReferenceNumber: [id number]) diclofenac sodium 75 mg tablet,delayed release RxNorm: 71154 6 1 Tablet(s) PO BID for pain 12/10/2013 02/24/2014 Inactive allopurinol 300 mg tablet RxNorm: 448218 1 Tablet(s) PO QD 11/20/19 14 12/29/2013 Inactive alprazolam 0.5 mg tablet RxNorm: 437418 2 Tablet(s) PO BID 11/13/19 14 12/29/2013 Inactive prn clonidine 0.1 mg tablet RxNorm: 630188 1 Tablet(s) PO TID 11/12/2013 02/09/2014 Inactive replaces 0.2mg dose Klor-Con M20 mEq tablet,extended release RxNorm: 749324 2 Tablet(s) PO BID to use with lasix 11/12/2013 05/10/2014 Inactive Singulair 10 mg tablet RxNorm: 734118 1 Tablet(s) PO QD 11/12/2013 Inactive hydrocodone 10 mg-acetaminophen 325 mg tablet RxNorm: 168592 1-2 Tablet(s) PO QID as needed for severe pain 11/12/2013 12/28/2013 Inactive Bystolic 10 mg tablet RxNorm: 467120 1 Tablet(s) PO QAM 11/12/2013 Inactive Soma 350 mg tablet RxNorm: 099874 Tablet(s) PO TAKE ON E TABLET BY MOUTH THREE TIMES A DAY NEEDED FOR MUSCLE SPASMS. THIS MUST LAST 30 DAYS BETWEEN REFILLS. 10/13/2013 12/10/2013 Inactive (Appended: Cont rolled substance eRx refill - RxReferenceNumber: [id number]) hydrocodone 10 mg-acetaminophen 325 mg tablet RxNorm: 349584 1-2 Tablet(s) PO QID as needed for severe pain 10/03/2013 11/11/2013 Inactive diclofenac sodium 75 mg tablet,delayed release RxNorm: 49774 8 1 Tablet(s) PO BID for pain 09/11/2013 12/10/2013 Inactive alprazolam 0.5 mg tablet RxNorm: 561571 1 Tablet(s) PO BID May refill on 04/26/13 09/01/2013 10/30/2013 Inactive prn hydrocodone 10 mg-acetaminophen 325 mg tablet RxNorm: 906036 1-2 Tablet(s) PO QID as needed for severe pain 09/01/2013 10/02/2013 Inactive triamterene 75 mg-hydrochlorothiazide 50 mg tablet RxNorm: 3 74297 1 Tablet(s) PO QD 08/04/2013 08/31/2014 Inactive cyclobenzaprine 10 mg tablet RxNorm: 709942 1 Tablet(s) PO TID prn spasm 08/04/2013 08/13/2013 Inactive clonidine 0.1 mg tablet RxNorm: 319278 1 Tablet(s) PO TID 08/04/2013 11/11/2013 Inactive replaces 0.2mg dose cyclobenzaprine 10 mg tablet RxNorm: 760679 1 Tablet(s) PO TID prn spasm 07/23/2013 08/01/2013 Inactive hydrocodone 10 mg-acetaminophen 325 mg tablet RxNorm: 499146 2 1-2 Tablet(s) PO QID as needed for severe pain 06/09/2013 08/07/2013 Inactive Singulair 10 mg tablet RxNorm: 898975 1 Tablet(s) PO QD 05/29/2013 Inactive Klor-Con 8 mEq tablet,extended release RxNorm: 150609 1 Tablet( s) PO BID 05/29/2013 02/26/2014 Inactive allopurinol 300 mg tablet RxNorm: 522506 1 Tablet(s) PO QD 05/29/20 13 11/19/2013 Inactive Bystolic 10 mg tablet RxNorm: 245640 1 Tablet(s) PO QAM take one daily in the morning. 05/29/2013 11/11/2013 Inactive scopolamine 1.5 mg 72 hr Transderm Patch RxNorm: 565912 Application TD Q72H for motion sickness 05/26/2013 07/22/2013 Inactive Soma 350 mg tablet RxNorm: 272326 1 Tablet(s) PO TID as needed for spasm 05/19/2013 10/13/2013 Inactive diclofenac sodium 75 mg tablet,delayed release RxNorm: 25900 8 1 Tablet(s) PO BID for pain 05/14/2013 07/22/2013 Inactive allopurinol 300 mg tablet RxNorm: 765309 1 Tablet(s) PO QD 04/25/20 13 05/28/2013 Inactive alprazolam 0.5 mg tablet RxNorm: 781675 1 Tablet(s) PO BID May refill on 04/26/13 04/25/2013 06/23/2013 Inactive prn Celebrex 200 mg capsule RxNorm: 179167 1 Capsule(s) PO QD 04/16/2013 12/29/2013 Inactive alprazolam 0.5 mg tablet RxNorm: 345830 1 Tablet(s) PO BID May refill on 04/26/13 04/16/2013 04/24/2013 Inactive prn Soma 350 mg tablet RxNorm: 857544 1 Tablet(s) PO TID as needed for spasm 04/16/2013 No Stop Date Active Lasix 40 mg tablet RxNorm: 048086 1 Tablet(s) PO QAM s hould take potassium supplementation with this medication 04/16/2013 06/14/2013 Inactive clonidine 0.1 mg tablet RxNorm: 476786 1 Tablet(s) PO TID 04/16/2013 08/03/2013 Inactive replaces 0.2mg dose prednisone 20 mg tablet RxNorm: 759212 1 Tablet(s) PO BID 04/16/2013 04/20/2013 Inactive diclofenac sodium 75 mg tablet,delayed release RxNorm: 87269 8 1 Tablet(s) PO BID for pain 04/14/2013 05/13/2013 Inactive hydrocodone 10 mg-acetaminophen 325 mg tablet RxNorm: 001205 2 1-2 Tablet(s) PO QID as needed for severe pain 04/14/2013 No Stop Date Active Lasix 40 mg tablet RxNorm: 483806 1 Tablet(s) PO QAM s hould take potassium supplementation with this medication 03/31/2013 04/15/2013 Inactive Celebrex 200 mg capsule RxNorm: 974806 1 Capsule(s) PO QD 03/31/2013 04/15/2013 Inactive alprazolam 0.5 mg tablet RxNorm: 365451 1 Tablet(s) PO BID 03/28/20 13 04/15/2013 Inactive prn hydrocodone 10 mg-acetaminophen 325 mg tablet RxNorm: 224206 2 1-2 Tablet(s) PO QID as needed for severe pain 03/10/2013 No Stop Date Active metformin ER 500 mg 24 hr tablet,extended release RxNorm: 86 1018 1 Tablet(s) PO QD 03/06/2013 07/22/2013 Inactive clindamycin 300 mg capsule RxNorm: 808696 2 Capsule(s) PO TID 03/0503/14/2013 Inactive Zaroxolyn 2.5 mg tablet RxNorm: 275034 1 Tablet(s) PO QAM 03/05/2013 05/19/2015 Inactive amlodipine 10 mg tablet RxNorm: 646066 1 Tablet(s) PO QD 03/03/2013 0 05/25/2013 Inactive Norvasc 10 mg tablet RxNorm: 221956 1 Tablet(s) PO QD 02/28/201307/11 Inactive Celebrex 200 mg capsule RxNorm: 834020 1 Capsule(s) PO QD 02/28/2013 03/30/2013 Inactive diclofenac sodium 75 mg tablet,delayed release RxNorm: 96056 8 1 Tablet(s) PO BID for pain 02/14/2013 03/15/2013 Inactive Soma 350 mg tablet RxNorm: 562740 1 Tablet(s) PO TID as needed for spasm 02/14/2013 No Stop Date Active hydrocodone 10 mg-acetaminophen 325 mg tablet RxNorm: 322218 2 1-2 Tablet(s) PO QID as needed for severe pain 02/14/2013 No Stop Date Active Norvasc 10 mg tablet RxNorm: 350589 1 Tablet(s) PO QD 02/10/201302/09 Inactive Celebrex 200 mg capsule RxNorm: 043803 1 Capsule(s) PO QD 01/27/2013 01/26/2013 Inactive Premarin 1.25 mg tablet RxNorm: 340995 1-2 Tablet(s) PO QD 01/28/20 13 06/25/2013 Inactive alprazolam 0.5 mg tablet RxNorm: 122442 1 Tablet(s) PO BID 01/28/20 13 02/25/2013 Inactive prn amlodipine 5 mg tablet RxNorm: 939958 1 Tablet(s) PO QD 01/27/2013 Inactive Celebrex 200 mg capsule RxNorm: 746045 1 Capsule(s) PO QD 01/27/2013 02/27/2013 Inactive gabapentin 600 mg tablet RxNorm: 943855 1 Tablet(s) PO QHS 01/16/20 13 07/22/2013 Inactive Soma 350 mg tablet RxNorm: 703355 1 Tablet(s) PO TID as needed for spasm 01/15/2013 No Stop Date Active hydrocodone 10 mg-acetaminophen 325 mg tablet RxNorm: 468522 2 1-2 Tablet(s) PO QID as needed for severe pain 01/15/2013 No Stop Date Active Soma 350 mg tablet RxNorm: 772069 1 Tablet(s) PO TID as needed for spasm 01/13/2013 No Stop Date Active alprazolam 0.5 mg tablet RxNorm: 309460 1 Tablet(s) PO BID 12/31/19 13 01/26/2013 Inactive prn diclofenac sodium 75 mg tablet,delayed release RxNorm: 23771 8 1 Tablet(s) PO BID for pain 12/09/2012 01/07/2013 Inactive gabapentin 600 mg tablet RxNorm: 131189 1 Tablet(s) PO QHS 12/10/19 13 01/07/2013 Inactive hydrocodone 10 mg-acetaminophen 325 mg tablet RxNorm: 149780 2 1-2 Tablet(s) PO QID as needed for severe pain 12/02/2012 No Stop Date Active Levaquin 750 mg tablet RxNorm: 215042 1 Tablet(s) PO QD 11/21/2012 Inactive Singulair 10 mg tablet RxNorm: 647882 1 Tablet(s) PO QD 11/11/2012 Inactive clonidine 0.2 mg tablet RxNorm: 100311 1 Tablet(s) PO TID 11/11/2012 04/15/2013 Inactive alprazolam 0.5 mg tablet RxNorm: 664613 1 Tablet(s) PO BID 11/12/19 13 12/10/2012 Inactive prn Klor-Con 8 mEq tablet,extended release RxNorm: 357254 1 Tablet( s) PO BID 11/11/2012 03/04/2013 Inactive hydrocodone 10 mg-acetaminophen 325 mg tablet RxNorm: 471634 2 1-2 Tablet(s) PO QID as needed for severe pain 11/06/2012 No Stop Date Active alprazolam 0.5 mg tablet RxNorm: 860404 1 Tablet(s) PO BID 10/15/19 13 11/10/2012 Inactive prn hydrocodone-acetaminophen 10 mg-325 mg tablet RxNorm: 546393 2 1-2 Tablet(s) PO QID as needed for severe pain 10/10/2012 10/09/2012 Inactive allopurinol 300 mg tablet RxNorm: 133995 1 Tablet(s) PO QD 09/20/19 13 12/18/2012 Inactive alprazolam 0.5 mg tablet RxNorm: 856029 1 Tablet(s) PO BID 09/17/19 13 10/14/2012 Inactive prn hydrocodone-acetaminophen 10 mg-325 mg tablet RxNorm: 497852 2 1-2 Tablet(s) PO QID as needed for severe pain 08/22/2012 08/21/2012 Inactive Norvasc 10 mg tablet RxNorm: 378346 1 Tablet(s) PO QD 08/12/201201/10 Inactive Premarin 1.25 mg tablet RxNorm: 782746 1-2 Tablet(s) PO QD 07/30/20 12 12/26/2012 Inactive alprazolam 0.5 mg tablet RxNorm: 398873 1 Tablet(s) PO BID 07/29/2008/27/2012 Inactive prn Klor-Con 8 mEq tablet,extended release RxNorm: 561339 1 Tablet( s) PO BID 07/29/2012 11/10/2012 Inactive hydrocodone-acetaminophen 10 mg-325 mg tablet RxNorm: 876109 2 1-2 Tablet(s) PO QID as needed for severe pain 07/29/2012 No Stop Date Active Premarin 1.25 mg tablet RxNorm: 150449 1-2 Tablet(s) PO QD 07/29/2007/29/2012 Inactive clonidine 0.2 mg tablet RxNorm: 002939 1 Tablet(s) PO TID 07/29/2012 10/28/2012 Inactive ketorolac 10 mg tablet RxNorm: 332102 1 Tablet(s) PO QID prn he adache 07/18/2012 No Stop Date Active hydrocodone-acetaminophen 10 mg-325 mg tablet RxNorm: 378003 2 1-2 Tablet(s) PO QID as needed for severe pain 07/03/2012 No Stop Date Active amlodipine 5 mg tablet RxNorm: 934989 1 Tablet(s) PO QD 07/02/2012 Inactive allopurinol 300 mg tablet RxNorm: 069417 1 Tablet(s) PO QD 07/02/20 12 09/19/2012 Inactive Celebrex 200 mg capsule RxNorm: 600842 1 Capsule(s) PO QD for j oint pain 06/26/2012 10/23/2012 Inactive diclofenac sodium 75 mg tablet,delayed release RxNorm: 27998 8 1 Tablet(s) PO BID for pain 06/19/2012 09/16/2012 Inactive hydrocodone-acetaminophen 10 mg-325 mg tablet RxNorm: 870993 2 1-2 Tablet(s) PO QID as needed for severe pain 06/10/2012 No Stop Date Active alprazolam 0.5 mg tablet RxNorm: 831664 1 Tablet(s) PO BID 06/03/20 12 07/02/2012 Inactive prn ketorolac 10 mg tablet RxNorm: 754758 1 Tablet(s) PO Q8H 05/27/2012 0 01/21/2019 Inactive as needed for headache hydrocodone-acetaminophen 10 mg-325 mg tablet RxNorm: 396825 2 1-2 Tablet(s) PO QID as needed for severe pain 05/15/2012 No Stop Date Active allopurinol 300 mg tablet RxNorm: 099593 1 Tablet(s) PO QD 05/14/20 12 06/12/2012 Inactive allopurinol 300 mg tablet RxNorm: 545524 1 Tablet(s) PO QD 05/14/20 12 05/13/2012 Inactive amlodipine 5 mg tablet RxNorm: 305587 1 Tablet(s) PO QD 05/01/2012 Inactive amlodipine 5 mg Tab RxNorm: 395017 1 Tablet(s) PO QD 05/01/201204/30 Inactive Celebrex 200 mg capsule RxNorm: 151604 1 Capsule(s) PO QD for j oint pain 05/01/2012 06/25/2012 Inactive Singulair 10 mg tablet RxNorm: 711819 1 Tablet(s) PO QD 05/01/2012 Inactive alprazolam 0.5 mg tablet RxNorm: 788121 1 Tablet(s) PO BID 05/01/20 12 05/30/2012 Inactive prn Celebrex 200 mg Cap RxNorm: 112314 1 Capsule(s) PO QD for joint radu n 05/01/2012 04/30/2012 Inactive hydrocodone-acetaminophen 10 mg-325 mg tablet RxNorm: 884382 2 1-2 Tablet(s) PO QID as needed for severe pain 04/19/2012 No Stop Date Active Lasix 40 mg tablet RxNorm: 445762 1 Tablet(s) PO QAM s hould take potassium supplementation with this medication 04/05/2012 06/03/2012 Inactive alprazolam 0.5 mg Tab RxNorm: 118696 1 Tablet(s) PO BID 04/05/2012 Inactive prn hydrocodone-acetaminophen 10 mg-325 mg Tab RxNorm: 8361834 1-2 Tablet(s) PO QID as needed for severe pain 03/25/2012 03/24/2012 Inactive clonidine 0.2 mg Tab RxNorm: 012955 1 Tablet(s) PO TID 03/08/2012 Inactive alprazolam 0.5 mg Tab RxNorm: 033960 1 Tablet(s) PO BID 03/08/2012 Inactive prn Soma 350 mg tablet RxNorm: 597025 1 Tablet(s) PO TID for spasm 02/0903/18/2012 Inactive clonidine 0.2 mg tablet RxNorm: 884667 1 Tablet(s) PO TID 03/08/2012 07/28/2012 Inactive Celebrex 200 mg Cap RxNorm: 778605 1 Capsule(s) PO QD for joint radu n 03/01/2012 04/29/2012 Inactive amlodipine 5 mg Tab RxNorm: 599963 1 Tablet(s) PO QD 02/26/201202/24 Inactive amlodipine 5 mg Tab RxNorm: 078613 1 Tablet(s) PO QD 02/26/201204/25 Inactive Bactroban 2 % Ointment RxNorm: 626264 Application TOP QID to sores 02/23/2012 No Stop Date Active amlodipine 2.5 mg tablet RxNorm: 726588 1 Tablet(s) PO QHS 02/20/20 12 02/25/2012 Inactive doxycycline hyclate 100 mg Cap RxNorm: 7452054 1 Capsule(s) PO BID 02/20/2012 02/29/2012 Inactive hydrocodone-acetaminophen 10 mg-325 mg Tab RxNorm: 7989069 1-2 T ablet(s) PO QID 02/08/2012 No Stop Date Active alprazolam 0.5 mg Tab RxNorm: 005403 1 Tablet(s) PO BID 02/08/2012 Inactive prn Singulair 10 mg Tab RxNorm: 169061 1 Tablet(s) PO QD 02/08/201204/30 Inactive Soma 350 mg Tab RxNorm: 252522 1 Tablet(s) PO TID for spasm 012 03/07/2012 Inactive Soma 350 mg Tab RxNorm: 974526 1 Tablet(s) PO TID for spasm 012 02/05/2012 Inactive diclofenac sodium 75 mg tablet,delayed release RxNorm: 36536 8 1 Tablet(s) PO BID for pain 02/01/2012 03/18/2012 Inactive Celebrex 200 mg Cap RxNorm: 429107 1 Capsule(s) PO QD for joint radu n 01/30/2012 02/28/2012 Inactive Lasix 40 mg Tab RxNorm: 879927 1 Tablet(s) PO QAM 01/24/2012 03/18/20 12 Inactive potassium chloride ER 20 mEq tablet,extended release(part/cr yst) RxNorm: 900400 2 Tablet(s) PO BID 01/24/2012 02/22/2012 Inactive alprazolam 0.5 mg Tab RxNorm: 585620 1 Tablet(s) PO BID 01/11/2012 Inactive prn hydrocodone-acetaminophen 10 mg-325 mg Tab RxNorm: 3871512 1-2 T ablet(s) PO QID 01/11/2012 No Stop Date Active Ambien 10 mg Tab RxNorm: 102974 1 Tablet(s) PO QHS 01/11/2012 012 Inactive Klor-Con 8 mEq Tab RxNorm: 335412 1 Tablet(s) PO BID 01/11/201201/22 Inactive diclofenac sodium 75 mg Tab, Delayed Release RxNorm: 462338 1 Tablet(s) PO BID for pain 01/10/2012 01/31/2012 Inactive Ambien 10 mg Tab RxNorm: 250735 1 Tablet(s) PO QHS 12/11/2011 012 Inactive alprazolam 0.5 mg Tab RxNorm: 819879 1 Tablet(s) PO BID 12/11/2011 Inactive prn hydrocodone 10 mg-acetaminophen 325 mg tablet RxNorm: 470455 1-2 Tablet(s) PO TID 11/28/2011 No Stop Date Active as needed for pa in - Previous quantity #240, will start dosing for #180 in April 2011 per Doctor Appiah. Ambien 10 mg Tab RxNorm: 509667 1 Tablet(s) PO QHS 11/09/2011 012 Inactive alprazolam 0.5 mg Tab RxNorm: 953824 1 Tablet(s) PO BID 11/09/2011 Inactive prn hydrocodone-acetaminophen 10 mg-325 mg Tab RxNorm: 2414885 1-2 T ablet(s) PO TID 11/06/2011 No Stop Date Active as needed for pain - Previous quantity #240, will start dosing for #180 in April 2011 per Doctor Td. Singulair 10 mg Tab RxNorm: 481535 1 Tablet(s) PO QD 10/13/201110/12 Inactive Singulair 10 mg Tab RxNorm: 170981 1 Tablet(s) PO QD 10/13/201102/06 Inactive hydrocodone-acetaminophen 10 mg-325 mg Tab RxNorm: 9393439 1-2 T ablet(s) PO TID 10/10/2011 10/09/2011 Inactive as needed for pain - Previous quantity #240, will start dosing for #180 in April 2011 per Doctor Td. hydrocodone-acetaminophen 10 mg-325 mg Tab RxNorm: 7761821 1-2 T ablet(s) PO TID 10/09/2011 No Stop Date Active as needed for pain - Previous quantity #240, will start dosing for #180 in April 2011 per Doctor Td. Klor-Con 8 mEq Tab RxNorm: 670497 1 Tablet(s) PO BID 10/02/201101/09 Inactive triamterene 75 mg-hydrochlorothiazide 50 mg tablet RxNorm: 3 86963 1 Tablet(s) PO QD 09/14/2011 03/06/2013 Inactive Ambien 10 mg Tab RxNorm: 406601 1 Tablet(s) PO QHS 09/14/2011 012 Inactive hydrocodone-acetaminophen 10 mg-325 mg Tab RxNorm: 9304588 1-2 T ablet(s) PO TID 09/14/2011 No Stop Date Active as needed for pain - Previous quantity #240, will start dosing for #180 in April 2011 per Doctor Td. alprazolam 0.5 mg Tab RxNorm: 293731 1 Tablet(s) PO BID 09/14/2011 Inactive prn Zithromax 500 mg Tab RxNorm: 0411499 1 Tablet(s) PO QD 09/13/201106/2012 Inactive prednisone 20 mg Tab RxNorm: 737318 1 Tablet(s) PO BID 08/31/2011 Inactive Ambien 10 mg Tab RxNorm: 354866 1 Tablet(s) PO QHS 08/17/2011 011 Inactive hydrocodone-acetaminophen 10 mg-325 mg Tab RxNorm: 2530036 1-2 T ablet(s) PO TID 08/17/2011 No Stop Date Active as needed for pain - Previous quantity #240, will start dosing for #180 in April 2011 per Doctor Td. clonidine 0.2 mg Tab RxNorm: 808007 1 Tablet(s) PO TID 08/17/201112/2011 Inactive Ambien 10 mg Tab RxNorm: 483183 1 Tablet(s) PO QHS 08/17/2011 019 Inactive alprazolam 0.5 mg Tab RxNorm: 917930 1 Tablet(s) PO BID 08/17/2011 Inactive prn hydrocodone-acetaminophen 10 mg-325 mg Tab RxNorm: 7159836 1-2 T ablet(s) PO TID 08/17/2011 08/16/2011 Inactive as needed for pain - Previous quantity #240, will start dosing for #180 in April 2011 per Doctor Td. Singulair 10 mg Tab RxNorm: 948929 1 Tablet(s) PO QD 08/17/201108/16 Inactive Klor-Con 8 mEq Tab RxNorm: 091887 1 Tablet(s) PO QD 08/17/20112011 Inactive alprazolam 0.5 mg Tab RxNorm: 162984 1 Tablet(s) PO BID 07/20/2011 Inactive prn Ambien 10 mg Tab RxNorm: 405264 1 Tablet(s) PO QHS 07/20/2011 012 Inactive Singulair 10 mg Tab RxNorm: 267370 1 Tablet(s) PO QD 07/20/201107/19 Inactive Premarin 1.25 mg tablet RxNorm: 696946 2 Tablet(s) PO QD 07/20/2011 0 01/21/2019 Inactive Premarin 1.25 mg tablet RxNorm: 213448 1-2 Tablet(s) PO QD 07/20/2012/16/2011 Inactive Premarin 1.25 mg Tab RxNorm: 961730 1-2 Tablet(s) PO QD 07/06/2011 Inactive alprazolam 0.5 mg Tab RxNorm: 362595 1 Tablet(s) PO BID 06/22/2011 Inactive prn alprazolam 0.5 mg Tab RxNorm: 263012 1 Tablet(s) PO BID 06/22/2011 Inactive prn Premarin 1.25 mg Tab RxNorm: 028546 1 Tablet(s) PO QD m ay do 90 day fill if desired 06/22/2011 07/05/2011 Inactive hydrocodone-acetaminophen 10 mg-325 mg Tab RxNorm: 0246446 1-2 T ablet(s) PO TID 06/22/2011 No Stop Date Active as needed for pain - Previous quantity #240, will start dosing for #180 in April 2011 per Doctor Td. clonidine 0.2 mg Tab RxNorm: 747848 1 Tablet(s) PO TID 05/25/201103/2011 Inactive triamterene-hydrochlorothiazide 75 mg-50 mg Tab RxNorm: 3108 18 1 Tablet(s) PO QD 05/25/2011 09/13/2011 Inactive alprazolam 0.5 mg Tab RxNorm: 550436 1 Tablet(s) PO BID 05/25/2011 Inactive prn hydrocodone-acetaminophen 10 mg-325 mg Tab RxNorm: 6019626 1-2 T ablet(s) PO TID 05/25/2011 No Stop Date Active as needed for pain - Previous quantity #240, will start dosing for #180 in April 2011 per Doctor Td. Robaxin-750 750 mg Tab RxNorm: 377680 2 Tablet(s) PO QHS 05/22/2011 1 Inactive prn spasm hydrocodone-acetaminophen 10 mg-325 mg Tab RxNorm: 4566003 1-2 T ablet(s) PO TID 04/26/2011 No Stop Date Active as needed for pain - Previous quantity #240, will start dosing for #180 in April 2011 per Doctor Td. alprazolam 0.5 mg Tab RxNorm: 609898 1 Tablet(s) PO BID 04/25/2011 Inactive prn Klor-Con 8 mEq Tab RxNorm: 779963 1 Tablet(s) PO QD 03/30/20112010 Inactive Klor-Con 8 mEq Tab RxNorm: 792986 1 Tablet(s) PO QD 03/29/20112010 Inactive hydrocodone-acetaminophen 10 mg-325 mg Tab RxNorm: 5341523 1-2 T ablet(s) PO TID 03/20/2011 04/25/2011 Inactive as needed for pain - Previous quantity #240, will start dosing for #180 in April 2011 per Doctor Td. alprazolam 0.5 mg Tab RxNorm: 095562 1 Tablet(s) PO BID prn 011 03/30/2011 Inactive Ambien 10 mg Tab RxNorm: 384497 1 Tablet(s) PO QHS 03/01/2011 011 Inactive cyclobenzaprine 10 mg Tab RxNorm: 440994 1 Tablet(s) PO TID 011 03/18/2012 Inactive cyclobenzaprine 10 mg Tab RxNorm: 022130 1 Tablet(s) PO TID 011 01/08/2011 Inactive cyclobenzaprine 10 mg Tab RxNorm: 104035 1 Tablet(s) PO TID 011 12/20/2010 Inactive terbinafine 250 mg Tab RxNorm: 863300 1 Tablet(s) PO QD 12/12/2010 Inactive triamterene-hydrochlorothiazide 75 mg-50 mg Tab RxNorm: 3108 18 1 Tablet(s) PO QD 12/07/2010 06/04/2011 Inactive Klor-Con 8 8 mEq Tab RxNorm: 364680 1 Tablet(s) PO QD 12/07/201001/08 Inactive Premarin 1.25 mg Tab RxNorm: 560484 2 Tablet(s) PO QD 12/07/201001/08 Inactive clonidine 0.2 mg Tab RxNorm: 606782 1 Tablet(s) PO TID 12/07/2010 Inactive hydrocodone-acetaminophen 7.5 mg-650 mg Tab RxNorm: 400771 1 Ta blet(s) PO Q4H 12/05/2010 01/21/2019 Inactive hydrocodone-acetaminophen 7.5 mg-650 mg Tab RxNorm: 984452 1 Ta blet(s) PO Q4H 10/26/2010 11/14/2010 Inactive hydrocodone-acetaminophen 7.5 mg-650 mg Tab RxNorm: 050701 1 Ta blet(s) PO Q4H 10/13/2010 10/25/2010 Inactive hydrocodone-acetaminophen 7.5 mg-650 mg Tab RxNorm: 033922 1 Ta blet(s) PO Q4H 09/15/2010 09/12/2010 Inactive alprazolam 0.5 mg Tab RxNorm: 101248 1 Tablet(s) PO BID prn 011 09/12/2010 Inactive terbinafine 250 mg Tab RxNorm: 986943 1 Tablet(s) PO QD 09/05/2010 Inactive hydrocodone-acetaminophen 7.5 mg-650 mg Tab RxNorm: 138695 1 Ta blet(s) PO Q4H 08/29/2010 09/17/2010 Inactive alprazolam 0.5 mg Tab RxNorm: 180207 1 Tablet(s) PO BID prn 010 09/27/2010 Inactive alprazolam 0.5 mg Tab RxNorm: 367895 1 Tablet(s) PO BID prn 010 09/06/2010 Inactive Klor-Con 8 mEq Tab RxNorm: 674337 1 Tablet(s) PO QD 08/08/20102010 Inactive hydrocodone-acetaminophen 7.5 mg-650 mg Tab RxNorm: 497038 1 Ta blet(s) PO Q4H 08/08/2010 08/27/2010 Inactive Ambien 10 mg Tab RxNorm: 742090 1 Tablet(s) PO QHS 08/08/2010 Inactive clonidine 0.2 mg Tab RxNorm: 291959 1 Tablet(s) PO TID 08/08/2010 Inactive Premarin 1.25 mg Tab RxNorm: 860972 2 Tablet(s) PO QD 08/08/201009/12 Inactive Ambien 10 mg Tab RxNorm: 187369 1 Tablet(s) PO QHS 07/18/2010 Inactive alprazolam 0.5 mg Tab RxNorm: 000353 1 Tablet(s) PO BID prn 08/07/2010 Inactive hydrocodone-acetaminophen 7.5 mg-650 mg Tab RxNorm: 129136 1 Ta blet(s) PO Q4H 07/12/2010 07/31/2010 Inactive clonidine 0.2 mg Tab RxNorm: 974383 1 Tablet(s) PO TID 06/20/2010 Inactive terbinafine 250 mg Tab RxNorm: 454470 1 Tablet(s) PO QD 05/24/2010 Inactive Clonidine 0.2 mg Tab RxNorm: 938253 1 Tablet(s) PO TID 05/24/201006/2010 Inactive Ambien 10 mg Tab RxNorm: 618007 1 Tablet(s) PO QHS 05/24/2010 Inactive alprazolam 0.5 mg Tab RxNorm: 322625 1 Tablet(s) PO BID 05/24/2010 Inactive Klor-Con 8 mEq Tab RxNorm: 779094 1 Tablet(s) PO QD 05/24/20102009 Inactive alprazolam 0.5 mg Tab RxNorm: 835810 2 Tablet(s) PO QD prn 05/24/20 10 07/17/2010 Inactive triamterene-hydrochlorothiazide 75 mg-50 mg Tab RxNorm: 3108 18 1 Tablet(s) PO QD 05/24/2010 11/19/2010 Inactive Ambien 10 mg Tab RxNorm: 587081 1 Tablet(s) PO QHS 05/23/2010 010 Inactive Alprazolam 0.5 mg Tab RxNorm: 517734 2 Tablet(s) PO QD prn 05/23/20 10 05/23/2010 Inactive Premarin 1.25 mg Tab RxNorm: 806907 2 Tablet(s) PO QD 05/19/201007/12 Inactive Hydrocodone-Acetaminophen 7.5 mg-650 mg Tab RxNorm: 196100 1 Ta blet(s) PO Q4H 05/19/2010 03/20/2011 Inactive Prednisone 20 mg Tab RxNorm: 935348 1 Tablet(s) PO BID 05/17/2010 Inactive Prednisone 20 mg Tab RxNorm: 187259 1 Tablet(s) PO BID 05/06/201001/2010 Inactive Premarin 1.25 mg Tab RxNorm: 062817 Tablet(s) PO 2 M-W-F, and 1 Pz-Iv-Jlz-Sun 05/05/2010 08/02/2010 Inactive Premarin 1.25 mg Tab RxNorm: 762238 Tablet(s) PO 2 M-W-F, and 1 Fe-Sk-Jym-Sun 05/04/2010 05/04/2010 Inactive Premarin 1.25 mg Tab RxNorm: 865092 Tablet(s) PO 2 M-W-F, and 1 Bm-Hj-Kbj-Sun 05/04/2010 05/03/2010 Inactive Prednisone 20 mg Tab RxNorm: 183634 1 Tablet(s) PO BID 04/27/2010 Inactive Alprazolam 0.5 mg Tab RxNorm: 527321 2 Tablet(s) PO QD prn 04/26/20 10 05/22/2010 Inactive Clindamycin 300 mg Cap RxNorm: 536134 2 Capsule(s) PO TID 04/05/2010 04/18/2010 Inactive Terbinafine 250 mg Tab RxNorm: 922008 1 Tablet(s) PO QD 04/04/2010 Inactive Hydrocodone-Acetaminophen 7.5 mg-650 mg Tab RxNorm: 597255 1 Ta blet(s) PO Q4H 03/30/2010 04/18/2010 Inactive Avelox 400 mg Tab RxNorm: 495604 1 Tablet(s) PO QD 03/09/2010 010 Inactive Hydrocodone-Acetaminophen 7.5 mg-650 mg Tab RxNorm: 962887 1 Ta blet(s) PO Q4H 03/08/2010 03/27/2010 Inactive Alprazolam 0.5 mg Tab RxNorm: 278881 2 Tablet(s) PO QD prn 03/08/20 10 04/25/2010 Inactive Klor-Con 8 mEq Tab RxNorm: 597046 1 Tablet(s) PO QD when takes lasi x 03/07/2010 08/03/2010 Inactive Premarin 1.25 mg Tab RxNorm: 698808 1 Tablet(s) PO QD 03/03/201003/11 Inactive Alprazolam 0.5 mg Tab RxNorm: 390743 1 Tablet(s) PO BID PRN 010 No Stop Date Active triamterene-hydrochlorothiazide 75 mg-50 mg Tab RxNorm: 3108 18 1 Tablet(s) PO QD 02/09/2010 02/03/2011 Inactive Hydrocodone-Acetaminophen 10 mg-750 mg Tab RxNorm: 569078 1 Tablet(s) PO Q4H PRN 02/09/2010 03/20/2011 Inactive Clonidine 0.2 mg Tab RxNorm: 330527 1 Tablet(s) PO TID 01/13/201009/2009 Inactive Alprazolam 0.5 mg Tab RxNorm: 912236 1 Tablet(s) PO BID PRN 010 01/12/2010 Inactive Hydrocodone-Acetaminophen 10 mg-750 mg Tab RxNorm: 896377 1 Tablet(s) PO Q4H PRN 01/13/2010 01/12/2010 Inactive ANGELIQ 1 mg-0.5 mg Tab RxNorm: 9252092 1 Tablet(s) PO QD 12/27/2009 01/23/2010 Inactive Lasix 40 mg Tab RxNorm: 460095 1 Tablet(s) PO QAM 12/14/2009 06/11/20 10 Inactive Vitamin B12 1000mcg Tablet RxNorm: 1 Tablet(s) PO QD No Start Date Active cyclobenzaprine 10 mg tablet RxNorm: 272867 1 Tablet(s) PO TID as needed DO NOT USE WITH BACLOFEN No Start Date Active Vitamin D 5,000 unit Tab RxNorm: 1 Tablet(s) PO QD No Start Date Active vitamin E (dl, acetate) 400 unit Cap RxNorm: 910642 1 Capsule(s ) PO QD No Start Date Active baclofen 10 mg tablet RxNorm: 511087 1 Tablet(s) PO TID as needed for muscle spasm No Start Date Active Benadryl 25 mg Cap RxNorm: 3038002 Capsule(s) PO PRN No Start Date Inactive amitriptyline 100 mg tablet RxNorm: 399816 1 Tablet(s) PO QHS No St art Date 11/27/2016 Inactive Zithromax Z-Dustin 250 mg tablet RxNorm: 463557 Tablet(s) PO as di rected No Start Date 07/22/2013 Inactive Klor-Con 8 mEq tablet,extended release RxNorm: 774623 1 Tablet( s) PO BID No Start Date 07/28/2012 Inactive scopolamine 1.5 mg 72 hr Transderm Patch RxNorm: 681013 Application TD Q72H for motion sickness No Start Date 05/25/2013 Inactive Klonopin 1 mg tablet RxNorm: 453639 1-2 Tablet(s) PO QHS as nee ded for sleep No Start Date 06/20/2015 Inactive Klor-Con M20 mEq tablet,extended release RxNorm: 396455 2 Tablet(s) PO BID to use with lasix No Start Date 11/11/2013 Inactive Bystolic 5 mg tablet RxNorm: 511255 1 Tablet(s) PO QD No Start Date 1 Inactive Bystolic 10 mg tablet RxNorm: 806933 1 Tablet(s) PO BID No Start Da te 07/06/2015 Inactive Premarin 1.25 mg Tab RxNorm: 789911 Tablet(s) PO 2 , and 1 Sm-Bp-Iaq-Sun No Start Date 05/03/2010 Inactive baclofen 20 mg tablet RxNorm: 129074 1 Tablet(s) PO TID as needed for muscle spasm No Start Date 07/22/2015 Inactive hydrocodone-acetaminophen 7.5 mg-650 mg Tab RxNorm: 745514 1 Tablet(s) PO Q4H as needed for pain No Start Date 03/20/2011 Inactive albuterol sulfate 1.25 mg/3 mL Neb Solution RxNorm: 477827 1 Unit Dose INH Q4H 2boxes No Start Date 09/06/2015 Inactive Butrans 20 mcg/hour Transderm Patch RxNorm: 421495 1 TD WEEKLY apply to skin weekly after removing previous. No Start Date 07/22/2013 Inactive Medrol (Dustin) 4 mg tablets in a dose pack RxNorm: 895860 Tablet(s) PO As Directed No Start Date 07/30/2016 Inactive hydrocodone-acetaminophen 10 mg-325 mg Tab RxNorm: 3621282 1-2 Tablet(s) PO TID as needed for pain No Start Date 03/19/2011 Inactive Klonopin 1 mg tablet RxNorm: 098153 1 Tablet(s) PO QHS No Start Date 02/28/2016 Inactive honey topical RxNorm: topical No Start Date 06/16/2018 Inactive Clonidine 0.2 mg Tab RxNorm: 390742 1 Tablet(s) PO TID No Start Date 01/12/2010 Inactive ketorolac 10 mg tablet RxNorm: 011329 1 Tablet(s) PO Q8H No Start D ate 03/18/2012 Inactive as needed for headache Singulair 10 mg Tab RxNorm: 369240 1 Tablet(s) PO QD No Start Date Inactive Premarin 1.25 mg Tab RxNorm: 422888 1 Tablet(s) PO QD No Start Date 1 Inactive Flonase 50 mcg/Actuation Nasal Dray[place] RxNorm: 0916355 1 Drayden CECELIA AL BID No Start Date 03/18/2012 Inactive Terbinafine 250 mg Tab RxNorm: 227039 1 Tablet(s) PO QD No Start Da te 04/03/2010 Inactive Fexofenadine 180 mg Tab RxNorm: 8604373 1 Tablet(s) PO QD No Start Date 09/06/2015 Inactive baclofen 20 mg tablet RxNorm: 700790 1 Tablet(s) PO TID as needed N o Start Date 05/25/2014 Inactive Diovan 160 mg Tab RxNorm: 200153 1 Tablet(s) PO QD No Start Date 09/12 Inactive mupirocin 2 % topical ointment RxNorm: 147302 1 Application TOP QID No Start Date 04/25/2016 Inactive ZOFRAN ODT 4 mg Tab, Rapid Dissolve RxNorm: 401903 1 Tablet(s) PO Q4H No Start Date 03/18/2012 Inactive as needed for nausea and vomiting Alprazolam 0.5 mg Tab RxNorm: 958080 1 Tablet(s) PO BID PRN No Star t Date 01/12/2010 Inactive cyclobenzaprine 10 mg tablet RxNorm: 371615 1 Tablet(s) PO TID as needed for muscle spasm No Start Date 10/08/2017 Inactive Albuterol 0.083% Aerosol Solution RxNorm: 1 Appl ication INH Q4H Use one ampule every 4 hrs with nebulizer as needed for shortness of breath. No Start Date 10/09/2010 Inactive lorazepam 1 mg tablet RxNorm: 907053 1 1/2 Tablet(s) PO QHS No Star t Date 02/02/2016 Inactive Melatonin 3 mg Tab RxNorm: 920111 Tablet(s) PO PRN No Start Date 07/11 Inactive Medrol (Dustin) 4 mg Tabs in a Dose Pack RxNorm: 003100 Tablet(s) PO N o Start Date 11/28/2010 Inactive lorazepam 1 mg tablet RxNorm: 898361 1 Tablet(s) PO QHS as need ed for sleep No Start Date 01/30/2016 Inactive hydrocodone-acetaminophen 10 mg-325 mg Tab RxNorm: 9883889 1-2 Tablet(s) PO QID as needed for severe pain No Start Date 03/24/2012 Inactive celecoxib 200 mg capsule RxNorm: 686920 1 Capsule(s) PO BID No Star t Date 06/26/2019 Inactive amlodipine 5 mg-benazepril 20 mg capsule RxNorm: 829834 1 Capsu le(s) PO QD No Start Date 04/10/2017 Inactive Bystolic 20 mg tablet RxNorm: 400739 1/2 Tablet(s) PO QAM No Start Date 01/23/2016 Inactive Bystolic 20 mg tablet RxNorm: 028430 1 Tablet(s) PO QAM No Start Da te 04/25/2016 Inactive Ambien 10 mg Tab RxNorm: 967577 1 Tablet(s) PO QHS No Start Date 05/11 Inactive Klor-Con 8 mEq Tab RxNorm: 436861 1 Tablet(s) PO QD when takes lasix No Start Date 03/06/2010 Inactive aspirin 81 mg tablet RxNorm: 983962 1 Tablet(s) PO QD No Start Date 0 01/29/2018 Inactive hydrocodone-acetaminophen 10 mg-325 mg Tab RxNorm: 5337575 1-2 T ablet(s) PO QID No Start Date 01/10/2012 Inactive Bystolic 10 mg tablet RxNorm: 796003 1 Tablet(s) PO QAM take one daily in the morning. No Start Date 05/28/2013 Inactive nystatin 100,000 unit/mL Oral Susp RxNorm: 283887 5 Milliliter( s) PO QID No Start Date 03/18/2012 Inactive swish and spit scopolamine 1.5 mg 72 hr Transderm Patch RxNorm: 054609 1 Unit Dose TD Q72H for motion sickness No Start Date 12/23/2013 Inactive Hydrocodone-Acetaminophen 10 mg-750 mg Tab RxNorm: 390761 1 Tablet(s) PO Q4H PRN No Start Date 01/12/2010 Inactive Soma 350 mg tablet RxNorm: 439561 1 Tablet(s) PO TID as needed for spasm No Start Date 01/12/2013 Inactive Soma 350 mg Tab RxNorm: 898244 1 Tablet(s) PO TID for spasm No Star t Date 01/31/2012 Inactive Co Q-10 400 mg capsule RxNorm: 211972 1 Capsule(s) PO QD No Start D ate 01/21/2019 Inactive nystatin 100,000 unit/gram topical cream RxNorm: 074023 Applica tion TOP BID No Start Date 03/22/2015 Inactive Exforge 5 mg-160 mg Tab RxNorm: 068426 1 Tablet(s) PO QD No Start D ate 10/09/2010 Inactive Hydrocodone-Acetaminophen 7.5 mg-650 mg Tab RxNorm: 976607 1 Ta blet(s) PO Q4H No Start Date 03/07/2010 Inactive Robaxin-750 750 mg Tab RxNorm: 604897 1-2 Tablet(s) PO TID prn spasm No Start Date 05/21/2011 Inactive amlodipine 5 mg tablet RxNorm: 479297 1 Tablet(s) PO QHS No Start D ate 09/29/2015 Inactive oxycodone-acetaminophen 10 mg-325 mg tablet RxNorm: 5799139 1-2 Tablet(s) PO Q6H No Start Date 06/16/2018 Inactive Triamterene-Hydrochlorothiazide 75 mg-50 mg Tab RxNorm: 3108 18 1 Tablet(s) PO QD No Start Date 02/08/2010 Inactive Alprazolam 0.5 mg Tab RxNorm: 778865 2 Tablet(s) PO QD prn No Start Date 03/07/2010 Inactive Bystolic 20 mg tablet RxNorm: 804821 1 Tablet(s) PO QAM No Start Da te 08/17/2015 Inactive ketorolac 10 mg tablet RxNorm: 012624 1 Tablet(s) PO QID prn he adache No Start Date 07/17/2012 Inactive acyclovir 800 mg Tab RxNorm: 167914 1 Tablet(s) PO BID No Start Date 03/18/2012 Inactive duloxetine 60 mg capsule,delayed release RxNorm: 587654 1 Capsu le(s) PO QD No Start Date 09/29/2015 Inactive Norvasc 5 mg tablet RxNorm: 838368 1 Tablet(s) PO QHS No Start Date 1 10/18/2014 Inactive promethazine 25 mg tablet RxNorm: 985251 1 Tablet(s) PO Q8H use sparingly No Start Date 07/22/2013 Inactive alprazolam 0.5 mg tablet RxNorm: 841271 3 Tablet(s) PO QHS No Start Date 06/06/2015 Inactive Lunesta 3 mg tablet RxNorm: 062101 1 Tablet(s) PO QHS No Start Date 0 09/20/2017 Inactive hydrocodone-acetaminophen 10 mg-325 mg Tab RxNorm: 5260236 1-2 Tablet(s) PO TID as needed for pain No Start Date 12/10/2011 Inactive Coricidin HBP Cough & Cold 4 mg-30 mg Tab RxNorm: 5330486 Tablet (s) PO PRN No Start Date 10/09/2010 Inactive Bactroban 2 % Ointment RxNorm: 582720 Application TOP QID to so res No Start Date 02/22/2012 Inactive Flonase 50 mcg/actuation Nasal [place] RxNorm: 060531 2 [place] QHS No Start Date 03/03/2014 Inactive Medication Administered No Medication Administered data Immunizations Vaccine Codes Date Status Tetanus, Diptheria, Pertussis CVX: 115 02/27/2014 Results Observation Observation Code Item Item Code Result Date S ervice Location COMPLETE BLOOD COUNT [id number] WBC 10.7 10e9/L 04/02/2 018 Unknown COMPLETE BLOOD COUNT [id number] RBC 4.59 10e12/L 2017 Unknown COMPLETE BLOOD COUNT [id number] HEMOGLOBIN 14.8 g/dL 12/11/19 18 Unknown COMPLETE BLOOD COUNT [id number] HEMATOCRIT 44.9 % 12/11/19 18 Unknown COMPLETE BLOOD COUNT 8255317 MCV 97.8 fL 8 Unknown COMPLETE BLOOD COUNT 3743515 MCH 32.2 pg 8 Unknown COMPLETE BLOOD COUNT 4892691 MCHC 33.0 g/dL 8 Unknown COMPLETE BLOOD COUNT 1143033 PLATELET COUNT 261 10e9/L 10/2017 Unknown COMPLETE BLOOD COUNT 3235616 Mean Plt Volume 9.5 fL 10/2017 Unknown COMPLETE BLOOD COUNT 1127431 Neut Auto 59.9 % 8 Unknown COMPLETE BLOOD COUNT 9162315 Lymph Auto 27.4 % 12/11/19 18 Unknown COMPLETE BLOOD COUNT 5548949 Mcdonald Auto 8.2 % 8 Unknown COMPLETE BLOOD COUNT 9508528 RDW 13.3 % 8 Unknown COMPLETE BLOOD COUNT 0732381 Eos Auto 4.1 % 8 Unknown COMPLETE BLOOD COUNT 6764718 Baso Auto 0.4 % 8 Unknown COMPLETE BLOOD COUNT [id number] Neutrophil Abs 6.41 10e9/L Unknown COMPLETE BLOOD COUNT [id number] Lymphocyte Abs 2.93 10e9/L Unknown COMPLETE BLOOD COUNT [id number] Monocyte Abs 0.88 10e9/L 10/2017 Unknown COMPLETE BLOOD COUNT [id number] Eosinophil Abs 0.44 10e9/L Unknown COMPLETE BLOOD COUNT [id number] Basophil Abs 0.04 10e9/L 10/2017 Unknown COMPLETE BLOOD COUNT 3488088 RDW-SD 46.2 fL 8 Unknown THYROID STIMULATING HORMONE 60252 TSH 4.015 uIU/mL 12/10/2017 Unknown COMPREHENSIVE METABOLIC 92101 AST 25 U/L 2017 Unknown COMPREHENSIVE METABOLIC 89132 ALT 17 U/L 2017 Unknown COMPREHENSIVE METABOLIC 04778 BUN 19 mg/dL 2017 Unknown COMPREHENSIVE METABOLIC 45374 ALBUMIN 4.0 g/dL 2017 Unknown COMPREHENSIVE METABOLIC 02764 CHLORIDE 91 mmol/L 2017 Unknown COMPREHENSIVE METABOLIC 75736 Bili Total 0.5 mg/dL 12/10 Unknown COMPREHENSIVE METABOLIC 59522 ALK PHOS 75 U/L 2017 Unknown COMPREHENSIVE METABOLIC 71913 SODIUM 136 mmol/L 12/10 Unknown COMPREHENSIVE METABOLIC 05934 CREATININE 1.05 mg/dL 10/2017 Unknown COMPREHENSIVE METABOLIC 40698 CALCIUM 8.9 mg/dL 2017 Unknown COMPREHENSIVE METABOLIC 24688 POTASSIUM 3.4 mmol/L 12/10 Unknown COMPREHENSIVE METABOLIC 27163 Total Protein 6.5 g/dL Unknown COMPREHENSIVE METABOLIC 68911 Glucose 138 mg/dL 2017 Unknown COMPREHENSIVE METABOLIC 62003 Bicarbonate 35 mmol/L 10/2017 Unknown COMPREHENSIVE METABOLIC 24760 AGAP 10 mmol/L 2017 Unknown MEAN GLUC 5199755 Calc Mean Gluc 171 mg/dL 12/10/2017 Unkn own L[facility] 53096 Cholesterol 204 mg/dL 12/10/2017 Unkno wn LIPID GROUP 81167 Triglyceride 411 mg/dL 12/10/2017 Unkn own L[facility] GROUP 23637 HDL CHOLESTEROL 50 mg/dL 12/10/2017 U nknown LIPID GROUP 61916 Chol/HDL Ratio 4.08 ratio 12/10/2017 U nknown LIPID GROUP 00780 NON-HDL Chol 154 mg/dL 12/10/2017 Unkn own LIPID GROUP 78873 LDL Cholesterol N/A Trig >400 018 Unknown GLYCOSYLATED HEMOGLOBIN TEST 00934 Hgb A1c 09335-4 7.6 % 0 12/10/2017 Unknown FREE T4 37815 T4 Free 1.40 ng/dL 12/10/2017 Unknown GFR CALC 2541042 GFR Non Afr Amr 55 mL/min 12/10/2017 Unk nown GFR CALC 0407252 GFR Afr Amr >60 mL/min 12/10/2017 Unknow n GFR CALC 7063384 GFR Afr Amr 59 mL/min 06/28/2017 Unknown GFR CALC 9294872 GFR Non Afr Amr 48 mL/min 06/28/2017 Unk nown COMPREHENSIVE METABOLIC 41920 AST 32 U/L 2016 Unknown COMPREHENSIVE METABOLIC 51309 ALT 22 U/L 2016 Unknown COMPREHENSIVE METABOLIC 11994 BUN 23 mg/dL 2016 Unknown COMPREHENSIVE METABOLIC 22311 ALBUMIN 4.7 g/dL 2016 Unknown COMPREHENSIVE METABOLIC 99946 CHLORIDE 89 mmol/L 2016 Unknown COMPREHENSIVE METABOLIC 70879 Bili Total 0.5 mg/dL 06/28 Unknown COMPREHENSIVE METABOLIC 67282 ALK PHOS 90 U/L 2016 Unknown COMPREHENSIVE METABOLIC 87255 SODIUM 135 mmol/L 06/28 Unknown COMPREHENSIVE METABOLIC 39949 CREATININE 1.18 mg/dL 06/10 Unknown COMPREHENSIVE METABOLIC 09554 CALCIUM 9.7 mg/dL 2016 Unknown COMPREHENSIVE METABOLIC 20469 POTASSIUM 3.5 mmol/L 06/28 Unknown COMPREHENSIVE METABOLIC 87078 Total Protein 7.7 g/dL Unknown COMPREHENSIVE METABOLIC 22276 Glucose 129 mg/dL 2016 Unknown COMPREHENSIVE METABOLIC 92670 Bicarbonate 34 mmol/L 06/10 Unknown COMPREHENSIVE METABOLIC 51584 AGAP 12 mmol/L 2016 Unknown LIPID GROUP 70666 HDL TEST 64 MG/DL 08/27/2014 Unknown LIPID GROUP 14039 TRIG 222 MG/DL 08/27/2014 Unknown LIPID GROUP 03428 TEST LDL 209 MG/DL 08/27/2014 Unknown LIPID GROUP 05783 CHOL 317 MG/DL 08/27/2014 Unknown LIPID GROUP 39863 RCHOL/HDL 4.95 RATIO 08/27/2014 Unknow n LIPID GROUP 80370 NON-HDL CH 253 MG/DL 08/27/2014 Unknow n GFR CALC 7506301 GFR AA >60 ML/MIN 08/27/2014 Unknown GFR CALC 4390650 GFR NON-AA >60 ML/MIN 08/27/2014 Unknown COMPLETE BLOOD COUNT 0963864 WBC 7.0 10e9/L 08/27/20 14 Unknown COMPLETE BLOOD COUNT 4817145 RBC 4.98 10e12/L 2013 Unknown COMPLETE BLOOD COUNT 5277539 HGB 15.6 g/dL 4 Unknown COMPLETE BLOOD COUNT 7103050 HCT DET 46.5 % 4 Unknown COMPLETE BLOOD COUNT 0172588 MCV 93.4 fL 4 Unknown COMPLETE BLOOD COUNT 0186947 MCH 31.3 pg 4 Unknown COMPLETE BLOOD COUNT 4499742 MCHC 33.5 g/dL 4 Unknown COMPLETE BLOOD COUNT 4409047 PLT 309 10e9/L 08/27/20 14 Unknown COMPLETE BLOOD COUNT 7899591 MPV 9.6 fL 4 Unknown COMPLETE BLOOD COUNT 4871830 CADEN % 57.2 % 4 Unknown COMPLETE BLOOD COUNT 9031853 LY % 33.2 % 4 Unknown COMPLETE BLOOD COUNT 1832118 MON % 7.3 % 4 Unknown COMPLETE BLOOD COUNT 2600004 EOS % 2.0 % 4 Unknown COMPLETE BLOOD COUNT 6528226 BASO % 0.3 % 4 Unknown COMPLETE BLOOD COUNT 7951520 RDW 13.7 % 4 Unknown COMPLETE BLOOD COUNT 6753333 ABS CADEN 4.00 10e9/L 014 Unknown COMPLETE BLOOD COUNT 3182119 ABS LYMPH 2.32 10e9/L 014 Unknown COMPLETE BLOOD COUNT 0128505 ABS MONO 0.51 10e9/L 014 Unknown COMPLETE BLOOD COUNT [id number] ABS EOS 0.14 10e9/L 014 Unknown COMPLETE BLOOD COUNT 5400820 ABS BASO 0.02 10e9/L 014 Unknown COMPLETE BLOOD COUNT 5260963 RDW-SD 45.1 fL 4 Unknown COMPREHENSIVE METABOLIC 78686 AST 13 U/L 2013 Unknown COMPREHENSIVE METABOLIC 87987 ALT 11 IU/L 2013 Unknown COMPREHENSIVE METABOLIC 33154 BUN 23 MG/DL 2013 Unknown COMPREHENSIVE METABOLIC 81607 ALBUMIN 4.4 GM/DL 2013 Unknown COMPREHENSIVE METABOLIC 52634 CHLORIDE 99 MMOL/L 2013 Unknown COMPREHENSIVE METABOLIC 24149 BILI TOT 0.5 MG/DL 2013 Unknown COMPREHENSIVE METABOLIC 24657 ALK PHOS 56 U/L 2013 Unknown COMPREHENSIVE METABOLIC 68172 SODIUM 138 MMOL/L 08/27 Unknown COMPREHENSIVE METABOLIC 68125 CREATININE 0.95 MG/DL 08/10 Unknown COMPREHENSIVE METABOLIC 75732 CALCIUM 9.8 MG/DL 2013 Unknown COMPREHENSIVE METABOLIC 02605 POTASSIUM 3.5 MMOL/L 08/27 Unknown COMPREHENSIVE METABOLIC 43048 PROT TOT 6.8 GM/DL 2013 Unknown COMPREHENSIVE METABOLIC 99047 Glucose 90 MG/DL 2013 Unknown COMPREHENSIVE METABOLIC 63655 BICARB 34 MMOL/L 2013 Unknown COMPREHENSIVE METABOLIC 91620 ANION GAP 5 MEQ/L 2013 Unknown LIPASE 13139 LIPASE 11 IU/L 07/21/2014 Unknown AMYLASE 50909 AMYLASE 39 IU/L 07/21/2014 Unknown HEMOGLOBIN A1C (GLYCOSYLATED) 6841689 A1C [facility] 40244-0 6.2 % 03/05/2013 Unknown THYROID STIMULATING HORMONE 95777 TSH 6.986 uIU/ML 03/05/2013 Unknown COMPLETE BLOOD COUNT 8447954 WBC 12.7 10e9/L 013 Unknown COMPLETE BLOOD COUNT 7600560 RBC 4.53 10e12/L 2012 Unknown COMPLETE BLOOD COUNT 9544773 HGB 14.7 g/dL 3 Unknown COMPLETE BLOOD COUNT 8788812 HCT DET 43.1 % 3 Unknown COMPLETE BLOOD COUNT 5457700 MCV 95.1 fL 3 Unknown COMPLETE BLOOD COUNT 4559006 MCH 32.5 pg 3 Unknown COMPLETE BLOOD COUNT 7135383 MCHC 34.1 g/dL 3 Unknown COMPLETE BLOOD COUNT 0772396 PLT 346 10e9/L 03/05/20 13 Unknown COMPLETE BLOOD COUNT 2304700 MPV 9.5 fL 3 Unknown COMPLETE BLOOD COUNT 9081439 CADEN % 67.6 % 3 Unknown COMPLETE BLOOD COUNT 9565354 LY % 22.1 % 3 Unknown COMPLETE BLOOD COUNT 9067170 MON % 6.6 % 3 Unknown COMPLETE BLOOD COUNT 9102462 EOS % 3.3 % 3 Unknown COMPLETE BLOOD COUNT 3771581 BASO % 0.4 % 3 Unknown COMPLETE BLOOD COUNT 7254007 RDW 14.0 % 3 Unknown COMPLETE BLOOD COUNT 0731085 ABS CADEN 8.59 10e9/L 013 Unknown COMPLETE BLOOD COUNT 8539817 ABS LYMPH 2.81 10e9/L 013 Unknown COMPLETE BLOOD COUNT 8459384 ABS MONO 0.84 10e9/L 013 Unknown COMPLETE BLOOD COUNT 8198530 ABS EOS 0.42 10e9/L 013 Unknown COMPLETE BLOOD COUNT 6298047 ABS BASO 0.05 10e9/L 013 Unknown COMPLETE BLOOD COUNT 1610967 RDW-SD 46.0 fL 06/26/201 3 Unknown FREE T4 89235 FREE T4 1.14 NG/DL 03/05/2013 Unknown COMPREHENSIVE METABOLIC 69762 AST 17 U/L 2012 Unknown COMPREHENSIVE METABOLIC 16597 ALT 12 IU/L 2012 Unknown COMPREHENSIVE METABOLIC 45783 BUN 24 MG/DL 2012 Unknown COMPREHENSIVE METABOLIC 84618 ALBUMIN 4.2 GM/DL 2012 Unknown COMPREHENSIVE METABOLIC 94229 CHLORIDE 93 MMOL/L 2012 Unknown COMPREHENSIVE METABOLIC 57282 BILI TOT 0.5 MG/DL 2012 Unknown COMPREHENSIVE METABOLIC 18295 ALK PHOS 75 U/L 2012 Unknown COMPREHENSIVE METABOLIC 10388 SODIUM 141 MMOL/L 03/05 Unknown COMPREHENSIVE METABOLIC 65749 CREATININE 1.36 MG/DL 02/09 Unknown COMPREHENSIVE METABOLIC 32244 CALCIUM 9.2 MG/DL 2012 Unknown COMPREHENSIVE METABOLIC 60129 POTASSIUM 3.1 MMOL/L 03/05 Unknown COMPREHENSIVE METABOLIC 85888 PROT TOT 6.9 GM/DL 2012 Unknown COMPREHENSIVE METABOLIC 99705 Glucose 123 MG/DL 2012 Unknown COMPREHENSIVE METABOLIC 08322 BICARB 36 MMOL/L 2012 Unknown COMPREHENSIVE METABOLIC 85254 ANION GAP 12 MEQ/L 2012 Unknown GFR CALC 6928062 GFR AA 51.0L ML/MIN 03/05/2013 Unknow n GFR CALC 2419631 GFR NON-AA 42.0L ML/MIN 03/05/2013 Unkno wn COMPREHENSIVE METABOLIC 95486 AST 14 U/L 2012 Unknown COMPREHENSIVE METABOLIC 48075 ALT 11 IU/L 2012 Unknown COMPREHENSIVE METABOLIC 84224 BUN 16 MG/DL 2012 Unknown COMPREHENSIVE METABOLIC 04889 ALBUMIN 4.2 GM/DL 2012 Unknown COMPREHENSIVE METABOLIC 10551 CHLORIDE 98 MMOL/L 2012 Unknown COMPREHENSIVE METABOLIC 28749 BILI TOT 0.4 MG/DL 2012 Unknown COMPREHENSIVE METABOLIC 13286 ALK PHOS 77 U/L 2012 Unknown COMPREHENSIVE METABOLIC 57631 SODIUM 139 MMOL/L 09/25 Unknown COMPREHENSIVE METABOLIC 88340 CREATININE 0.86 MG/DL 09/10 Unknown COMPREHENSIVE METABOLIC 36761 CALCIUM 9.5 MG/DL 2012 Unknown COMPREHENSIVE METABOLIC 65186 POTASSIUM 3.8 MMOL/L 09/25 Unknown COMPREHENSIVE METABOLIC 63569 PROT TOT 6.8 GM/DL 2012 Unknown COMPREHENSIVE METABOLIC 54330 Glucose 91 MG/DL 2012 Unknown COMPREHENSIVE METABOLIC 00904 BICARB 32 MMOL/L 2012 Unknown COMPREHENSIVE METABOLIC 39592 ANION GAP 9 MEQ/L 2012 Unknown FREE T4 98648 FREE T4 0.98 NG/DL 09/25/2012 Unknown THYROID STIMULATING HORMONE 70011 TSH 1.736 uIU/ML 09/25/2012 Unknown C-REACTIVE PROTEIN (CRP) QUANT 84083 CRP 2.3 MG/DL 09/25/2012 Unknown COMPLETE BLOOD COUNT [id number] WBC 11.9 10e9/L 013 Unknown COMPLETE BLOOD COUNT 5050434 RBC 4.87 10e12/L 2012 Unknown COMPLETE BLOOD COUNT 9430400 HGB 15.1 g/dL 3 Unknown COMPLETE BLOOD COUNT 7112705 HCT DET 44.8 % 3 Unknown COMPLETE BLOOD COUNT 6809673 MCV 92.0 fL 3 Unknown COMPLETE BLOOD COUNT 1722591 MCH 31.0 pg 3 Unknown COMPLETE BLOOD COUNT 3129267 MCHC 33.7 g/dL 3 Unknown COMPLETE BLOOD COUNT 9337969 PLT 343 10e9/L 09/25/19 13 Unknown COMPLETE BLOOD COUNT 7547001 MPV 9.0 fL 3 Unknown COMPLETE BLOOD COUNT 1670345 CADEN % 68.2 % 3 Unknown COMPLETE BLOOD COUNT 5381029 LY % 22.4 % 3 Unknown COMPLETE BLOOD COUNT 9300823 MON % 6.4 % 3 Unknown COMPLETE BLOOD COUNT 8914530 EOS % 2.7 % 3 Unknown COMPLETE BLOOD COUNT 5880573 BASO % 0.3 % 3 Unknown COMPLETE BLOOD COUNT 8636520 RDW 13.8 % 3 Unknown COMPLETE BLOOD COUNT 5413509 ABS CADEN 8.12 10e9/L 013 Unknown COMPLETE BLOOD COUNT 3542449 ABS LYMPH 2.67 10e9/L 013 Unknown COMPLETE BLOOD COUNT 7445166 ABS MONO 0.76 10e9/L 013 Unknown COMPLETE BLOOD COUNT [id number] ABS EOS 0.32 10e9/L 013 Unknown COMPLETE BLOOD COUNT 9233533 ABS BASO 0.04 10e9/L 013 Unknown COMPLETE BLOOD COUNT 6423112 RDW-SD 45.6 fL 3 Unknown GFR CALC 7800149 GFR AA >60 ML/MIN 09/25/2012 Unknown GFR CALC 1981902 GFR NON-AA >60 ML/MIN 09/25/2012 Unknown ERYTHROCYTE SEDIMENTATION RATE 29390 ESR 19 MM/HR 05/06/2012 Unknown VITAMIN B 12 FOLIC ACID 64870|28190 VIT B 12 922 PG/ML 04/11 Unknown VITAMIN B 12 FOLIC ACID 15260|94948 FOLIC ACID 13.6 NG/ML Unknown URIC ACID 83409 URIC ACID 7.8 MG/DL 05/06/2012 Unknown COMPLETE BLOOD COUNT 40963 WBC 11.9 10e9/L 012 Unknown COMPLETE BLOOD COUNT 84142 RBC 5.30 10e12/L 2011 Unknown COMPLETE BLOOD COUNT 24550 HGB 16.6 g/dL 2 Unknown COMPLETE BLOOD COUNT 08907 HCT DET 47.2 % 2 Unknown COMPLETE BLOOD COUNT 82788 MCV 89.1 fL 2 Unknown COMPLETE BLOOD COUNT 60404 MCH 31.3 pg 2 Unknown COMPLETE BLOOD COUNT 80536 MCHC 35.2 g/dL 2 Unknown COMPLETE BLOOD COUNT 68344 PLT 362 10e9/L 05/06/20 12 Unknown COMPLETE BLOOD COUNT 69268 MPV 9.4 fL 2 Unknown COMPLETE BLOOD COUNT 95722 CADEN % 68.2 % 2 Unknown COMPLETE BLOOD COUNT 59658 LY % 22.0 % 2 Unknown COMPLETE BLOOD COUNT 20171 MON % 6.9 % 2 Unknown COMPLETE BLOOD COUNT 33226 EOS % 2.6 % 2 Unknown COMPLETE BLOOD COUNT 90603 BASO % 0.3 % 2 Unknown COMPLETE BLOOD COUNT 05479 RDW 12.8 % 2 Unknown COMPLETE BLOOD COUNT 36983 ABS CADEN 8.12 10e9/L 012 Unknown COMPLETE BLOOD COUNT 73225 ABS LYMPH 2.62 10e9/L 012 Unknown COMPLETE BLOOD COUNT 77875 ABS MONO 0.82 10e9/L 012 Unknown COMPLETE BLOOD COUNT 75367 ABS EOS 0.31 10e9/L 012 Unknown COMPLETE BLOOD COUNT 14577 ABS BASO 0.04 10e9/L 012 Unknown COMPLETE BLOOD COUNT 61033 RDW-SD 41.5 fL 2 Unknown GFR CALC 9797027 GFR AA >60 ML/MIN 05/06/2012 Unknown GFR CALC 6764161 GFR NON-AA 58.0L ML/MIN 05/06/2012 Unkno wn FREE T4 30628 FREE T4 1.15 NG/DL 05/06/2012 Unknown THYROID STIMULATING HORMONE 64008 TSH 1.568 uIU/ML 05/06/2012 Unknown COMPREHENSIVE METABOLIC 18876 AST 20 U/L 2011 Unknown COMPREHENSIVE METABOLIC 72310 ALT 12 IU/L 2011 Unknown COMPREHENSIVE METABOLIC 87778 BUN 20 MG/DL 2011 Unknown COMPREHENSIVE METABOLIC 32256 ALBUMIN 4.5 GM/DL 2011 Unknown COMPREHENSIVE METABOLIC 24372 CHLORIDE 91 MMOL/L 2011 Unknown COMPREHENSIVE METABOLIC 39960 BILI TOT 0.4 MG/DL 2011 Unknown COMPREHENSIVE METABOLIC 60727 ALK PHOS 73 U/L 2011 Unknown COMPREHENSIVE METABOLIC 63243 SODIUM 139 MMOL/L 05/06 Unknown COMPREHENSIVE METABOLIC 84462 CREATININE 1.02 MG/DL 04/11 Unknown COMPREHENSIVE METABOLIC 22944 CALCIUM 9.7 MG/DL 2011 Unknown COMPREHENSIVE METABOLIC 91689 POTASSIUM 3.1 MMOL/L 05/06 Unknown COMPREHENSIVE METABOLIC 46264 PROT TOT 7.3 GM/DL 2011 Unknown COMPREHENSIVE METABOLIC 57631 Glucose 118 MG/DL 2011 Unknown COMPREHENSIVE METABOLIC 46859 BICARB 33 MMOL/L 2011 Unknown COMPREHENSIVE METABOLIC 44805 ANION GAP 15 MEQ/L 2011 Unknown Procedures Procedure Codes Date URINALYSIS NONAUTO W/O SCOPE CPT-4: 02472 09/30/2018 MICROALBUMIN QUANTITATIVE CPT-4: 58200 09/30/2018 CEFTRIAXONE SODIUM INJECTION CPT-4: J0696 06/19/2018 THER/PROPH/DIAG INJ SC/IM CPT-4: 61880 06/19/2018 CEFTRIAXONE SODIUM INJECTION CPT-4: J0696 06/17/2018 THER/PROPH/DIAG INJ SC/IM CPT-4: 68736 06/17/2018 THER/PROPH/DIAG INJ SC/IM CPT-4: 87947 05/16/2018 KETOROLAC TROMETHAMINE INJ CPT-4: J1885 05/16/2018 ONDANSETRON HCL INJECTION CPT-4: J2405 05/16/2018 THER/PROPH/DIAG INJ SC/IM CPT-4: 52463 05/16/2018 ROUTINE VENIPUNCTURE CPT-4: 39332 03/20/2018 COMPREHEN METABOLIC PANEL CPT-4: 36028 03/20/2018 DEXAMETHASONE SODIUM PHOS CPT-4: J1100 02/11/2018 THER/PROPH/DIAG INJ SC/IM CPT-4: 22621 02/11/2018 TRIAMCINOLONE ACET INJ NOS CPT-4: J3301 02/11/2018 CEFTRIAXONE SODIUM INJECTION CPT-4: J0696 02/01/2018 THER/PROPH/DIAG INJ SC/IM CPT-4: 16926 02/01/2018 CEFTRIAXONE SODIUM INJECTION CPT-4: J0696 01/30/2018 THER/PROPH/DIAG INJ SC/IM CPT-4: 28631 01/30/2018 ROUTINE VENIPUNCTURE CPT-4: 71270 12/10/2017 ASSAY OF FREE THYROXINE CPT-4: 35032 12/10/2017 ASSAY THYROID STIM HORMONE CPT-4: 62044 12/10/2017 COMPREHEN METABOLIC PANEL CPT-4: 71670 12/10/2017 COMPLETE CBC W/AUTO DIFF WBC CPT-4: 64629 12/10/2017 LIPID PANEL CPT-4: 59575 12/10/2017 A1C HPLC CPT-4: 36448 12/10/2017 CEFTRIAXONE SODIUM INJECTION CPT-4: J0696 12/10/2017 THER/PROPH/DIAG INJ SC/IM CPT-4: 33077 12/10/2017 CEFTRIAXONE SODIUM INJECTION CPT-4: J0696 12/07/2017 THER/PROPH/DIAG INJ SC/IM CPT-4: 55748 12/07/2017 DEXAMETHASONE SODIUM PHOS CPT-4: J1100 12/07/2017 THER/PROPH/DIAG INJ SC/IM CPT-4: 18731 12/07/2017 CEFTRIAXONE SODIUM INJECTION CPT-4: J0696 10/08/2017 THER/PROPH/DIAG INJ SC/IM CPT-4: 99885 10/08/2017 CEFTRIAXONE SODIUM INJECTION CPT-4: J0696 09/21/2017 THER/PROPH/DIAG INJ SC/IM CPT-4: 81741 09/21/2017 CEFTRIAXONE SODIUM INJECTION CPT-4: J0696 09/20/2017 THER/PROPH/DIAG INJ SC/IM CPT-4: 28050 09/20/2017 REMOVAL OF NAIL PLATE CPT-4: 09377 08/29/2017 THER/PROPH/DIAG INJ SC/IM CPT-4: 21020 08/29/2017 TRIAMCINOLONE ACET INJ NOS CPT-4: J3301 08/29/2017 CEFTRIAXONE SODIUM INJECTION CPT-4: J0696 08/29/2017 THER/PROPH/DIAG INJ SC/IM CPT-4: 53064 08/29/2017 DESTRUCT PREMALG LESION (Cryosurgery) CPT-4: 94132 ROUTINE VENIPUNCTURE CPT-4: 40039 06/27/2017 ASSAY OF FREE THYROXINE CPT-4: 50068 06/27/2017 ASSAY THYROID STIM HORMONE CPT-4: 45733 06/27/2017 COMPREHEN METABOLIC PANEL CPT-4: 77417 06/27/2017 COMPLETE CBC W/AUTO DIFF WBC CPT-4: 51395 06/27/2017 EXC TR-EXT B9+REECE 0.5 CM< CPT-4: 93596 01/24/2017 THER/PROPH/DIAG INJ SC/IM CPT-4: 44515 08/02/2016 DEXAMETHASONE SODIUM PHOS CPT-4: J1100 08/02/2016 DESTRUCT PREMALG LESION (Cryosurgery) CPT-4: 67575 EXC TR-EXT B9+REECE 0.5 CM< CPT-4: 29711 08/01/2016 AEROBIC WOUND CULTURE & STN CPT-4: 87691 07/06/2016 CEFTRIAXONE SODIUM INJECTION CPT-4: J0696 05/25/2016 THER/PROPH/DIAG INJ SC/IM CPT-4: 68732 05/25/2016 THER/PROPH/DIAG INJ SC/IM CPT-4: 66500 04/26/2016 DEXAMETHASONE SODIUM PHOS CPT-4: J1100 04/26/2016 CEFTRIAXONE SODIUM INJECTION CPT-4: J0696 04/26/2016 THER/PROPH/DIAG INJ SC/IM CPT-4: 95442 04/26/2016 THER/PROPH/DIAG INJ SC/IM CPT-4: 55466 02/09/2016 TRIAMCINOLONE ACET INJ NOS CPT-4: J3301 02/09/2016 URINALYSIS NONAUTO W/O SCOPE CPT-4: 50661 01/24/2016 URINE CULTURE/ COLONY COUNT CPT-4: 50511 01/24/2016 THER/PROPH/DIAG INJ SC/IM CPT-4: 55270 12/08/2015 TRIAMCINOLONE ACET INJ NOS CPT-4: J3301 12/08/2015 THER/PROPH/DIAG INJ SC/IM CPT-4: 49418 10/07/2015 TRIAMCINOLONE ACET INJ NOS CPT-4: J3301 10/07/2015 DESTRUCT PREMALG LESION (Cryosurgery) CPT-4: 21696 THER/PROPH/DIAG INJ SC/IM CPT-4: 67445 03/16/2015 METHYLPREDNISOLONE 40 MG INJ CPT-4: J1030 03/16/2015 DESTRUCT PREMALG LESION (Cryosurgery) CPT-4: 61041 THER/PROPH/DIAG INJ SC/IM CPT-4: 47390 09/11/2014 METHYLPREDNISOLONE 40 MG INJ CPT-4: J1030 09/11/2014 TRIAMCINOLONE ACET INJ NOS CPT-4: J3301 09/11/2014 CEFTRIAXONE SODIUM INJECTION CPT-4: J0696 09/11/2014 THER/PROPH/DIAG INJ SC/IM CPT-4: 67984 09/11/2014 ROUTINE VENIPUNCTURE CPT-4: 70664 08/27/2014 COMPREHEN METABOLIC PANEL CPT-4: 73628 08/27/2014 COMPLETE CBC W/AUTO DIFF WBC CPT-4: 37164 08/27/2014 LIPID PANEL CPT-4: 77216 08/27/2014 ROUTINE VENIPUNCTURE CPT-4: 03056 07/21/2014 ASSAY OF AMYLASE CPT-4: 08875 07/21/2014 ASSAY OF LIPASE CPT-4: 09228 07/21/2014 THER/PROPH/DIAG INJ SC/IM CPT-4: 26219 07/15/2014 TRIAMCINOLONE ACET INJ NOS CPT-4: J3301 07/15/2014 ROUTINE VENIPUNCTURE CPT-4: 77145 05/14/2014 ASSAY OF FREE THYROXINE CPT-4: 46564 05/14/2014 ASSAY THYROID STIM HORMONE CPT-4: 21742 05/14/2014 COMPREHEN METABOLIC PANEL CPT-4: 08685 05/14/2014 COMPLETE CBC W/AUTO DIFF WBC CPT-4: 21906 05/14/2014 LIPID PANEL CPT-4: 73152 05/14/2014 CEFTRIAXONE SODIUM INJECTION CPT-4: J0696 04/21/2014 THER/PROPH/DIAG INJ SC/IM CPT-4: 40503 04/21/2014 THER/PROPH/DIAG INJ SC/IM CPT-4: 66546 04/21/2014 TRIAMCINOLONE ACET INJ NOS CPT-4: J3301 04/21/2014 THER/PROPH/DIAG INJ SC/IM CPT-4: 70648 03/04/2014 METHYLPREDNISOLONE 40 MG INJ CPT-4: J1030 03/04/2014 TRIAMCINOLONE ACET INJ NOS CPT-4: J3301 03/04/2014 CEFTRIAXONE SODIUM INJECTION CPT-4: J0696 03/04/2014 THER/PROPH/DIAG INJ SC/IM CPT-4: 81488 03/04/2014 TDAP VACCINE 7 YRS/> IM CPT-4: 74190 02/27/2014 IMMUNIZATION ADMIN CPT-4: 60297 02/27/2014 DESTRUCT PREMALG LESION (Cryosurgery) CPT-4: 62020 DESTRUCT PREMALG LES 2-14 CPT-4: 11294 01/13/2014 THER/PROPH/DIAG INJ SC/IM CPT-4: 89862 10/21/2013 METHYLPREDNISOLONE 40 MG INJ CPT-4: J1030 10/21/2013 TRIAMCINOLONE ACET INJ NOS CPT-4: J3301 10/21/2013 CEFTRIAXONE SODIUM INJECTION CPT-4: J0696 08/27/2013 THER/PROPH/DIAG INJ SC/IM CPT-4: 65295 08/27/2013 THER/PROPH/DIAG INJ SC/IM CPT-4: 18842 08/27/2013 METHYLPREDNISOLONE 40 MG INJ CPT-4: J1030 08/27/2013 TRIAMCINOLONE ACET INJ NOS CPT-4: J3301 08/27/2013 THER/PROPH/DIAG INJ SC/IM CPT-4: 60101 06/23/2013 METHYLPREDNISOLONE 40 MG INJ CPT-4: J1030 06/23/2013 TRIAMCINOLONE ACET INJ NOS CPT-4: J3301 06/23/2013 THER/PROPH/DIAG INJ SC/IM CPT-4: 33822 05/26/2013 METHYLPREDNISOLONE 40 MG INJ CPT-4: J1030 05/26/2013 TRIAMCINOLONE ACET INJ NOS CPT-4: J3301 05/26/2013 ROUTINE VENIPUNCTURE CPT-4: 92984 03/05/2013 ASSAY OF FREE THYROXINE CPT-4: 74044 03/05/2013 ASSAY THYROID STIM HORMONE CPT-4: 50523 03/05/2013 COMPREHEN METABOLIC PANEL CPT-4: 80345 03/05/2013 COMPLETE CBC W/AUTO DIFF WBC CPT-4: 90889 03/05/2013 A1C GLYCOSYLATED HEMOGLOBIN TEST CPT-4: 44657 013 DRAIN/INJECT JOINT/BURSA CPT-4: 36068 12/04/2012 METHYLPREDNISOLONE 40 MG INJ CPT-4: J1030 12/04/2012 TRIAMCINOLONE ACET INJ NOS CPT-4: J3301 12/04/2012 CEFTRIAXONE SODIUM INJECTION CPT-4: J0696 11/21/2012 THER/PROPH/DIAG INJ SC/IM CPT-4: 31414 11/21/2012 THER/PROPH/DIAG INJ SC/IM CPT-4: 86152 10/14/2012 METHYLPREDNISOLONE 40 MG INJ CPT-4: J1030 10/14/2012 TRIAMCINOLONE ACET INJ NOS CPT-4: J3301 10/14/2012 URINALYSIS NONAUTO W/O SCOPE CPT-4: 87116 09/27/2012 ROUTINE VENIPUNCTURE CPT-4: 25890 09/25/2012 ASSAY OF FREE THYROXINE CPT-4: 18334 09/25/2012 ASSAY THYROID STIM HORMONE CPT-4: 34068 09/25/2012 COMPREHEN METABOLIC PANEL CPT-4: 44759 09/25/2012 COMPLETE CBC W/AUTO DIFF WBC CPT-4: 02871 09/25/2012 C-REACTIVE PROTEIN CPT-4: 25768 09/25/2012 THER/PROPH/DIAG INJ SC/IM CPT-4: 88503 08/29/2012 METHYLPREDNISOLONE 40 MG INJ CPT-4: J1030 08/29/2012 TRIAMCINOLONE ACET INJ NOS CPT-4: J3301 08/29/2012 DESTRUCT PREMALG LESION (Cryosurgery) CPT-4: 03913 THER/PROPH/DIAG INJ SC/IM CPT-4: 28545 05/06/2012 METHYLPREDNISOLONE 40 MG INJ CPT-4: J1030 05/06/2012 TRIAMCINOLONE ACET INJ NOS CPT-4: J3301 05/06/2012 VITAMIN B 12 FOLIC ACID CPT-4: 49770|99270 05/06/2012 RBC SED RATE AUTOMATED CPT-4: 43579 05/06/2012 ROUTINE VENIPUNCTURE CPT-4: 95257 05/06/2012 ASSAY OF FREE THYROXINE CPT-4: 67882 05/06/2012 ASSAY THYROID STIM HORMONE CPT-4: 87314 05/06/2012 COMPREHEN METABOLIC PANEL CPT-4: 87715 05/06/2012 COMPLETE CBC W/AUTO DIFF WBC CPT-4: 03896 05/06/2012 ASSAY OF BLOOD/URIC ACID CPT-4: 14720 05/06/2012 THER/PROPH/DIAG INJ SC/IM CPT-4: 27312 03/19/2012 KETOROLAC TROMETHAMINE INJ CPT-4: J1885 03/19/2012 KETOROLAC TROMETHAMINE INJ CPT-4: J1885 01/30/2012 THER/PROPH/DIAG INJ SC/IM CPT-4: 48180 01/30/2012 PROMETHAZINE HCL INJECTION CPT-4: J2550 01/30/2012 THER/PROPH/DIAG INJ SC/IM CPT-4: 08014 01/24/2012 METHYLPREDNISOLONE 40 MG INJ CPT-4: J1030 01/24/2012 TRIAMCINOLONE ACET INJ NOS CPT-4: J3301 01/24/2012 THER/PROPH/DIAG INJ SC/IM CPT-4: 03846 09/13/2011 KETOROLAC TROMETHAMINE INJ CPT-4: J1885 09/13/2011 THER/PROPH/DIAG INJ SC/IM CPT-4: 57266 09/13/2011 PROMETHAZINE HCL INJECTION CPT-4: J2550 09/13/2011 CEFTRIAXONE SODIUM INJECTION CPT-4: J0696 07/20/2011 THER/PROPH/DIAG INJ SC/IM CPT-4: 74323 07/20/2011 THER/PROPH/DIAG INJ SC/IM CPT-4: 97486 07/20/2011 METHYLPREDNISOLONE INJECTION CPT-4: J2930 07/20/2011 URINALYSIS NONAUTO W/O SCOPE CPT-4: 64196 05/09/2011 CEFTRIAXONE SODIUM INJECTION CPT-4: J0696 05/09/2011 THER/PROPH/DIAG INJ SC/IM CPT-4: 20243 05/09/2011 THER/PROPH/DIAG INJ SC/IM CPT-4: 64714 05/09/2011 PROMETHAZINE HCL INJECTION CPT-4: J2550 05/09/2011 HYDRATION IV INFUSION INIT CPT-4: 12348 05/09/2011 DESTRUCT PREMALG LESION (Cryosurgery) CPT-4: 75751 DESTRUCT PREMALG LES 2-14 CPT-4: 15798 07/19/2010 REMOVAL OF SKIN TAGS <W/15 CPT-4: 12671 05/30/2010 THER/PROPH/DIAG INJ SC/IM CPT-4: 38250 04/05/2010 CEFTRIAXONE SODIUM INJECTION CPT-4: J0696 04/05/2010 TRIAMCINOLONE ACET INJ NOS CPT-4: J3301 04/05/2010 METHYLPREDNISOLONE 40 MG INJ CPT-4: J1030 04/05/2010 THER/PROPH/DIAG INJ SC/IM CPT-4: 48546 04/05/2010 TRIAMCINOLONE ACET INJ NOS CPT-4: J3301 03/09/2010 METHYLPREDNISOLONE 40 MG INJ CPT-4: J1030 03/09/2010 THER/PROPH/DIAG INJ SC/IM CPT-4: 04987 03/09/2010 THER/PROPH/DIAG INJ SC/IM CPT-4: 26904 03/09/2010 CEFTRIAXONE SODIUM INJECTION CPT-4: J0696 03/09/2010 Vital Signs Date Vital 05/28/2019 Blood Pressure 1: 126/82 Code: 8480-6 BMI: 35.0 Code: 04799-7 Heart Rate 1: 88 bpm Height: 5'4" [...] 1: 128/90 Code: 8480-6 BMI: 37.2 Code: 91363-0 Heart Rate 1: 84 bpm Height: 5'4" Respiratory Rate: 20 bpm SpO2: 95% Tempera ture: 36.6 (C) / 97.8 (F) Weight: 217 lbs 08/27/2018 Blood Pressure 1: 128/88 Code: 8480-6 BMI: 38.3 Code: 48335-3 Heart Rate 1: 84 bpm Height: 5'4" [...] 1: 119/72 Code: 8480-6 BMI: 37.4 Code: 49301-1 Heart Rate 1: 82 bpm Height: 5'4" Respiratory Rate: 12 bpm SpO2: 94% Tempera ture: 35.2 (C) / 95.4 (F) Weight: 218 lbs 12/18/2017 Blood Pressure 1: 128/86 Code: 8480-6 BMI: 37.8 Code: 91513-9 Heart Rate 1: 84 bpm Height: 5'4" [...] 1: 128/82 Code: 8480-6 BMI: 35.5 Code: 94668-1 Heart Rate 1: 84 bpm Height: 5'4" [...] 1: 128/82 Code: 8480-6 BMI: 30.2 Code: 89885-7 Heart Rate 1: 80 bpm Height: 5'4" [...] 1: 128/86 Code: 8480-6 BMI: 32.8 Code: 34761-7 Heart Rate 1: 66 bpm Height: 5'4" Respiratory Rate: 18 bpm Temperature: 36 .3 (C) / 97.3 (F) Weight: 191 lbs 06/23/2013 Blood Pressure 1: 132/94 Code: 8480-6 BMI: 34.0 Code: 26412-1 Heart Rate 1: 84 bpm Height: 5'4" Respiratory Rate: 20 bpm Temperature: 36 .8 (C) / 98.2 (F) Weight: 198 lbs 05/26/2013 Blood Pressure 1: 114/80 Code: 8480-6 BMI: 35.0 Code: 62320-1 Heart Rate 1: 80 bpm Height: 5'4" Respiratory Rate: 20 bpm Temperature: 36 .4 (C) / 97.6 (F) Weight: 204 lbs 04/16/2013 Blood Pressure 1: 114/82 Code: 8480-6 BMI: 36.7 Code: 81385-4 Heart Rate 1: 84 bpm Height: 5'4" Respiratory Rate: 20 bpm Temperature: 36 .7 (C) / 98.0 (F) Weight: 214 lbs 03/05/2013 Blood Pressure 1: 136/90 Code: 8480-6 BMI: 37.1 Code: 10095-3 Heart Rate 1: 84 bpm Height: 5'4" [...] 1: 168/114 Code: 8480-6 BMI: 36.2 Code: 27091-7 Heart Rate 1: 104 bpm Height: 5'4" Respiratory Rate: 20 bpm Temperature: 36 .8 (C) / 98.2 (F) Weight: 211 lbs 11/22/2012 Blood Pressure 1: 128/90 Code: 8480-6 Heart Rate 1: 88 bpm Respiratory Rate: 20 bpm SpO2: 96% Temperature: 36.8 (C) / 98.2 (F) 11/21/2012 Blood Pressure 1: 146/100 Code: 8480-6 BMI: 35.7 Code: 83837-7 Heart Rate 1: 96 bpm Height: 5'4" [...] 1: 138/100 Code: 8480-6 BMI: 35.7 Code: 31510-6 Heart Rate 1: 96 bpm Height: 5'4" Respiratory Rate: 20 bpm Temperature: 36 .8 (C) / 98.2 (F) Weight: 208 lbs 05/06/2012 Blood Pressure 1: 154/102 Code: 8480-6 BMI: 34.7 Code: 01754-4 Heart Rate 1: 116 bpm Height: 5'4" Respiratory Rate: 20 bpm Temperature: 36 .8 (C) / 98.2 (F) Weight: 202 lbs 04/03/2012 Blood Pressure 1: 134/94 Code: 8480-6 BMI: 34.8 Code: 09679-0 Heart Rate 1: 108 bpm Height: 5'4" Respiratory Rate: 20 bpm Temperature: 36 .8 (C) / 98.2 (F) Weight: 203 lbs 03/19/2012 Blood Pressure 1: 148/106 Code: 8480-6 BMI: 35.0 Code: 34565-2 Heart Rate 1: 100 bpm Height: 5'4" Respiratory Rate: 20 bpm Temperature: 36 .6 (C) / 97.9 (F) Weight: 204 lbs 02/22/2012 Blood Pressure 1: 146/94 Code: 8480-6 He art Rate 1: 88 bpm 02/21/2012 Blood Pressure 1: 172/120 Code: 8480-6 B lood Pressure 2: 152/106 Code: 8480-6 Heart Rate 1: 116 bpm 02/20/2012 Blood Pressure 1: 160/100 Code: 8480-6 BMI: 32.0 Code: 44366-9 Heart Rate 1: 84 bpm Height: 5'7" Temperature: 36.5 (C) / 97.7 (F) Weight: 204 lbs 01/30/2012 Blood Pressure 1: 152/110 Code: 8480-6 BMI: 32.0 Code: 23630-2 Heart Rate 1: 116 bpm Height: 5'7" Respiratory Rate: 20 bpm Temperature: 37 .0 (C) / 98.6 (F) Weight: 204 lbs 01/24/2012 Blood Pressure 1: 146/100 Code: 8480-6 BMI: 32.0 Code: 00625-3 Heart Rate 1: 100 bpm Height: 5'7" Respiratory Rate: 20 bpm Temperature: 36 .7 (C) / 98.0 (F) Weight: 204 lbs 01/10/2012 Blood Pressure 1: 156/94 Code: 8480-6 BMI: 32.6 Code: 40788-4 Heart Rate 1: 72 bpm Height: 5'7" Respiratory Rate: 20 bpm Temperature: 36 .8 (C) / 98.2 (F) Weight: 208 lbs 12/11/2011 Blood Pressure 1: 146/100 Code: 8480-6 Heart Rat e 1: 116 bpm Height: 5'7" Respiratory Rate: 20 bpm Temperature: 36.9 (C) / 98.4 (F) We ight: 11/09/2011 Blood Pressure 1: 148/96 Code: 8480-6 BMI: 32.1 Code: 55295-3 Heart Rate 1: 116 bpm Height: 5'7" Respiratory Rate: 20 bpm Temperature: 36 .7 (C) / 98.0 (F) Weight: 205 lbs 09/13/2011 Blood Pressure 1: 126/88 Code: 8480-6 Heart Rate 1: 88 bpm Height: 5'7" Respiratory Rate: 20 bpm Temperature: 36.9 (C) / 98.4 (F) We ight: 08/31/2011 Blood Pressure 1: 118/82 Code: 8480-6 BMI: 32.0 Code: 74091-4 Heart Rate 1: 80 bpm Height: 5'7" Temperature: 36.4 (C) / 97.6 (F) Weight: 204 lbs 07/06/2011 Blood Pressure 1: 128/86 Code: 8480-6 BMI: 30.9 Code: 19022-2 Heart Rate 1: 92 bpm Height: 5'7" Respiratory Rate: 20 bpm Temperature: 36 .9 (C) / 98.4 (F) Weight: 197 lbs 06/06/2011 Blood Pressure 1: 112/74 Code: 8480-6 BMI: 31.0 Code: 83974-9 Heart Rate 1: 72 bpm Height: 5'7" [...] 1: 128/92 Code: 8480-6 BMI: 33.6 Code: 64441-7 Heart Rate 1: 104 bpm Height: 5'4" [...] Check-up Encounters Encounter Performer Location Codes Date ([id number]) OFFICE/OUTPATIENT VISIT EST Diagnosis: Essential (primary) hypertension[ICD10: I10] Diagnosis: Fall from bed, sequela[ICD10: W06.XXXS] María Elena REED [facility] CPT-4: 72627 05/28/2019 ([id number]) NURSE/OUTPATIENT VISIT EST Diagnosis: Essential (primary) hypertension[ICD10: I10] María Elena JUARES [employer] CPT-4: 94576 05/19/2019 ([id number]) OFFICE/OUTPATIENT VISIT EST Diagnosis: Essential (primary) hypertension[ICD10: I10] Diagnosis: Type 2 diabetes mellitus with hyperglycemia[ICD10: E11.65] Diagnosis: Intervertebral disc disorders with radiculopathy, 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] Diagnosis: Hormone replacement therapy[ICD10: Z79.890] María Elena JUARES [employer] CPT-4: 08556 01/22/2019 ([id number]) OFFICE/OUTPATIENT VISIT EST Diagnosis: Essential (primary) hypertension[ICD10: I10] Diagnosis: Type 2 diabetes mellitus with hyperglycemia[ICD10: E11.65] María Elena [facility] CPT-4: 19852 09/30/2018 ([id number]) OFFICE/OUTPATIENT VISIT EST Diagnosis: Pain in left elbow[ICD10: M25.522] Diagnosis: Acute stress reaction[ICD10: F43.0] Diagnosis: Primary insomnia[ICD10: F51.01] Diagnosis: Abnormal weight gain[ICD10: R63.5] María Elena [facility] CPT-4: 15006 08/27/2018 ([id number]) OFFICE/OUTPATIENT VISIT EST Diagnosis: Acute recurrent sinusitis, unspecified[ICD10: J01.91] Diagnosis: Follicular disorder, unspecified[ICD10: L73.9] Diagnosis: Tinea corporis[ICD10: B35.4] María Elena [facility] CPT-4: 92826 08/09/2018 ([id number]) OFFICE/OUTPATIENT VISIT EST Diagnosis: Tinea corporis[ICD10: B35.4] Diagnosis: Anxiety disorder, unspecified[ICD10: F41.9] Diagnosis: Menopausal and female climacteric states[ICD10: N95.1] María Elena [facility] CPT-4: 19512 07/22/2018 ([id number]) NURSE/OUTPATIENT VISIT EST Diagnosis: Cellulitis of right toe[ICD10: L03.031] María Elena [facility] CPT-4: 92421 06/19/2018 ([id number]) OFFICE/OUTPATIENT VISIT EST Diagnosis: Cellulitis of right toe[ICD10: L03.031] Kathleen Tenadi KYLAH [facility] CPT-4: 60500 06/17/2018 ([id number]) OFFICE/OUTPATIENT VISIT EST Diagnosis: Migraine without aura, intractable, without status migrainosus[ICD10: G43.019] Diagnosis: Zoster without complications[ICD10: B02.9] Kathleenjer [facility] CPT-4: 14627 05/16/2018 ([id number]) OFFICE/OUTPATIENT VISIT EST Diagnosis: Cellulitis of right lower limb[ICD10: L03.115] Kathleen [facility] DO [facility] CPT-4: 49256 03/20/2018 ([id number]) OFFICE/OUTPATIENT VISIT EST Diagnosis: Cellulitis of right lower limb[ICD10: L03.115] Kathleen [facility] DO [facility] CPT-4: 70362 03/18/2018 ([id number]) OFFICE/OUTPATIENT VISIT EST Diagnosis: Cellulitis of right lower limb[ICD10: L03.115] Kathleen [facility] DO [facility] CPT-4: 12967 03/15/2018 ([id number]) OFFICE/OUTPATIENT VISIT EST Diagnosis: Acute sinusitis, unspecified[ICD10: J01.90] Kathleen [facility] DO [facility] CPT-4: 10575 02/11/2018 ([id number]) NURSE/OUTPATIENT VISIT EST Diagnosis: Otitis media, unspecified, right ear[ICD10: H66.91] María Elena [facility] CPT-4: 68235 02/01/2018 ([id number]) OFFICE/OUTPATIENT VISIT EST Diagnosis: Acute suppurative otitis media without spontaneous rupture of ear drum, left ear[ICD10: H66.002] Diagnosis: Abnormal weight gain[ICD10: R63.5] Diagnosis: Intervertebral disc disorders with radiculopathy, 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] Kathleen [facility] DO [facility] CPT-4: 99 214 01/30/2018 ([id number]) PREV VISIT EST AGE 40-64 Diagnosis: Encounter for general adult medical examination without abnormal findings[ICD10: Z00.00] Diagnosis: Essential (primary) hypertension[ICD10: I10] Diagnosis: Mixed hyperlipidemia[ICD10: E78.2] Diagnosis: Type 2 diabetes mellitus with hyperglycemia[ICD10: E11.65] Diagnosis: 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] María Elena [facility] CPT-4: 38215 12/18/2017 ([id number]) OFFICE/OUTPATIENT VISIT EST Diagnosis: Cellulitis of right toe[ICD10: L03.031] Diagnosis: Mixed hyperlipidemia[ICD10: E78.2] Diagnosis: Essential (primary) hypertension[ICD10: I10] Diagnosis: Hyperglycemia, unspecified[ICD10: R73.9] Diagnosis: Nontoxic goiter, 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] María Elena [facility] CPT-4: 19658 12/10/2017 ([id number]) OFFICE/OUTPATIENT VISIT EST Diagnosis: Cellulitis of right toe[ICD10: L03.031] Diagnosis: Acute sinusitis, unspecified[ICD10: J01.90] Kathleen [facility] CPT-4: 02306 12/07/2017 OFFICE/OUTPATIENT VISIT EST Diagnosis: Acute maxillary sinusitis, unspecified[ICD10: J01.00] Kathleen [facility] CPT-4: 48255 10/08/2017 ([id number]) OFFICE/OUTPATIENT VISIT EST Diagnosis: Cellulitis of left toe[ICD10: L03.032] [facility] 82578 09/21/2017 ([id number]) OFFICE/OUTPATIENT VISIT EST Diagnosis: Insomnia, unspecified[ICD10: G47.00] Diagnosis: Major depressive disorder, single episode, unspecified[ICD10: F32.9] Diagnosis: Anxiety disorder, unspecified[ICD10: F41.9] Diagnosis: Cellulitis of left toe[ICD10: L03.032] Diagnosis: Snoring[ICD10: R06.83] Kathleen [facility] DO [facility] CPT-4: 20129 09/20/2017 ([id number]) OFFICE/OUTPATIENT VISIT EST Diagnosis: Cellulitis of left toe[ICD10: L03.032] María [facility] C[facility]: 19769 07/19/2017 OFFICE/OUTPATIENT VISIT EST Diagnosis: Chronic sinusitis, unspecified[ICD10: J32.9] Diagnosis: Generalized hyperhidrosis[ICD10: R61] Kathleen [facility] [employer] [facility] CPT-4: 39924 06/27/2017 ([id number]) OFFICE/OUTPATIENT VISIT EST Diagnosis: Intervertebral disc disorders with radiculopathy, 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] Diagnosis: Primary insomnia[ICD10: F51.01] Diagnosis: Other fatigue[ICD10: R53.83] María Elena APPIAH [employer] [facility] CPT-4: 98605 04/10/2017 ([id number]) OFFICE/OUTPATIENT VISIT EST Diagnosis: Primary insomnia[ICD10: F51.01] Diagnosis: Localized edema[ICD10: R60.0] Diagnosis: 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] María Elena APPIAH [employer] [facility] CPT-4: 48125 12/13/2016 ([id number]) OFFICE/OUTPATIENT VISIT EST Diagnosis: Primary insomnia[ICD10: F51.01] Diagnosis: Cyanosis[ICD10: R23.0] María Elena Bazzi [employer] [facility] CPT-4: 99413 11/01/2016 ([id number]) PREV VISIT EST AGE 40-64 Diagnosis: Encounter for gynecological examination (general) (routine) without abnormal findings[ICD10: Z01.419] Diagnosis: Encounter for routine child health examination without abnormal findings[ICD10: Z00.129] María Elena APPIAH [employer] [facility] CPT-4: 40407 10/17/2016 ([id number]) OFFICE/OUTPATIENT VISIT EST Diagnosis: Other seasonal allergic rhinitis[ICD10: J30.2] María Elena APPIAH [employer] [facility] CPT-4: 88307 10/10/2016 ([id number]) OFFICE/OUTPATIENT VISIT EST Diagnosis: Pain in left arm[ICD10: M79.602] Diagnosis: Contact with and (suspected) exposure to potentially hazardous body fluids[ICD10: Z77.21] Diagnosis: 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, 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] Diagnosis: Unspecified open wound, right foot, sequela[ICD10: S91.301S] María Elena [facility] CPT-4: 85523 09/19/2016 ([id number]) OFFICE/OUTPATIENT VISIT EST Diagnosis: Chronic sinusitis, unspecified[ICD10: J32.9] Diagnosis: Allergic rhinitis due to pollen[ICD10: J30.1] María Elena [facility] CPT-4: 52692 08/24/2016 ([id number]) OFFICE/OUTPATIENT VISIT EST Diagnosis: Acute bronchitis, unspecified[ICD10: J20.9] María Elena [facility] CPT-4: 85466 08/16/2016 ([id number]) OFFICE/OUTPATIENT VISIT EST Diagnosis: Otitis media, unspecified, right ear[ICD10: H66.91] Diagnosis: Acute bronchitis, unspecified[ICD10: J20.9] María Elena APPIAH [employer] [facility] CPT-4: 10156 08/10/2016 ([id number]) OFFICE/OUTPATIENT VISIT EST Diagnosis: Acute recurrent sinusitis, unspecified[ICD10: J01.91] Diagnosis: Allergic rhinitis due to pollen[ICD10: J30.1] María Elena [facility] CPT-4: 11086 08/02/2016 ([id number]) OFFICE/OUTPATIENT VISIT EST Diagnosis: Pain in unspecified joint[ICD10: M25.50] María Elena [facility] CPT-4: 31616 07/27/2016 OFFICE/OUTPATIENT VISIT EST Diagnosis: 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] Diagnosis: Acute recurrent sinusitis, unspecified[ICD10: J01.91] Diagnosis: Other fatigue[ICD10: R53.83] Diagnosis: Primary insomnia[ICD10: F51.01] Diagnosis: Pain in unspecified joint[ICD10: M25.50] María Elena APPIA[facility] [employer] [facility] CPT-4: 71434 07/20/2016 ([id number]) OFFICE/OUTPATIENT VISIT EST Diagnosis: Blister (nonthermal), left great toe, initial encounter[ICD10: S90.422A] Loan [facility] DO [facility] CPT-4: 36007 ([id number]) OFFICE/OUTPATIENT VISIT EST Diagnosis: Acute recurrent sinusitis, unspecified[ICD10: J01.91] María Elena [facility] CPT-4: 85499 05/25/2016 ([id number]) OFFICE/OUTPATIENT VISIT EST Diagnosis: Acute sinusitis, unspecified[ICD10: J01.90] María Elena [facility] CPT-4: 53420 04/26/2016 ([id number]) OFFICE/OUTPATIENT VISIT EST Diagnosis: Flushing[ICD10: R23.2] Diagnosis: Primary insomnia[ICD10: F51.01] María Elena [facility] CPT-4: 32760 03/02/2016 ([id number]) OFFICE/OUTPATIENT VISIT EST Diagnosis: Other seasonal allergic rhinitis[ICD10: J30.2] Loan APPIAH [employer] [facility] CPT-4: 15398 02/09/2016 ([id number]) OFFICE/OUTPATIENT VISIT EST Diagnosis: Primary insomnia[ICD10: F51.01] Diagnosis: Urinary tract infection, site not specified[ICD10: N39.0] María Elena APPIAH [employer] [facility] CPT-4: 72883 01/24/2016 ([id number]) OFFICE/OUTPATIENT VISIT EST Diagnosis: Other specified disorders of Eustachian tube, bilateral[ICD10: H69.83] Diagnosis: Allergic rhinitis, unspecified[ICD10: J30.9] Loan APPIAH DO [facility] CPT-4: 98281 12/23/2015 ([id number]) OFFICE/OUTPATIENT VISIT EST Diagnosis: Acute recurrent sinusitis, unspecified[ICD10: J01.91] Diagnosis: 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] Diagnosis: Allergic rhinitis, unspecified[ICD10: J30.9] María Elena [facility] CPT-4: 02423 12/08/2015 ([id number]) OFFICE/OUTPATIENT VISIT EST Diagnosis: Allergic rhinitis, unspecified[ICD10: J30.9] Diagnosis: Pain in unspecified joint[ICD10: M25.50] María Elena [facility] DO [facility] CPT-4: 84159 10/07/2015 ([id number]) OFFICE/OUTPATIENT VISIT EST Diagnosis: Essential (primary) hypertension[ICD10: I10] María Elena [facility] DO [facility] CPT-4: 90980 10/06/2015 OFFICE/OUTPATIENT VISIT EST Diagnosis: Localized enlarged lymph nodes[ICD10: R59.0] Diagnosis: Local infection of the skin and subcutaneous tissue, unspecified[ICD10: L08.9] June [facility]IAH DO [facility] CPT- 4: 12817 09/14/2015 ([id number]) OFFICE/OUTPATIENT VISIT EST Diagnosis: Essential (primary) hypertension[ICD10: I10] Diagnosis: Actinic keratosis[ICD10: L57.0] María Elena [facility] DO [facility] CPT-4: 58600 09/07/2015 ([id number]) OFFICE/OUTPATIENT VISIT EST Diagnosis: Essential (primary) hypertension[ICD10: I10] Diagnosis: Acute stress reaction[ICD10: F43.0] María Elena APPIHA DO [facility] CPT-4: 32730 08/18/2015 ([id number]) OFFICE/OUTPATIENT VISIT EST Diagnosis: Essential (primary) hypertension[ICD10: I10] María Elena [facility] DO [facility] CPT-4: 47519 07/07/2015 ([id number]) OFFICE/OUTPATIENT VISIT EST Diagnosis: Essential (primary) hypertension[ICD10: I10] María Elena [facility] CPT-4: 55697 06/24/2015 ([id number]) OFFICE/OUTPATIENT VISIT EST Diagnosis: Essential (primary) hypertension[ICD10: I10] María Elena [facility] DO [facility] CPT-4: 29564 06/21/2015 ([id number]) OFFICE/OUTPATIENT VISIT EST Diagnosis: Essential (primary) hypertension[ICD10: I10] Diagnosis: Mixed hyperlipidemia[ICD10: E78.2] Diagnosis: Acute stress reaction[ICD10: F43.0] Diagnosis: Primary insomnia[ICD10: F51.01] María Elena [facility] CPT-4: 25889 06/16/2015 ([id number]) OFFICE/OUTPATIENT VISIT EST Diagnosis: INSOMNIA NOS[ICD9: 780.52] Diagnosis: HYPERTENSION[ICD9: 401.9] Diagnosis: Stress reaction[ICD9: 308.9] María Elena [facility] CPT-4: 59104 06/02/2015 ([id number]) OFFICE/OUTPATIENT VISIT EST Diagnosis: HYPERTENSION[ICD9: 401.9] Diagnosis: Stress reaction[ICD9: 308.9] María Elena [facility] CPT-4: 49065 05/20/2015 ([id number]) OFFICE/OUTPATIENT VISIT EST Diagnosis: Skin lesion[ICD9: 709.9] 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] María [facility]: 97360 05/10/2015 ([id number]) OFFICE/OUTPATIENT VISIT EST Diagnosis: SINUSITIS, ACUTE[ICD9: 461.9] Diagnosis: ALLERGIC RHINITIS[ICD9: 477.9] Diagnosis: DERMATITIS NOS[ICD9: 692.9] María Elena Rodríguez [facility] CPT-4: 86823 03/16/2015 OFFICE/OUTPATIENT VISIT EST Diagnosis: Otitis media[ICD9: 382.9] Diagnosis: SINUSITIS, ACUTE[ICD9: 461.9] June Flores [facility]ÍA ELENA [facility] C[facility]: 84062 09/11/2014 ([id number]) OFFICE/OUTPATIENT VISIT EST Diagnosis: HYPERLIPIDEMIA NEC/NOS[ICD9: 272.4] María Elena ELLISTaran COLON Fabiola ORTA [employer] [facility] CPT-4: 54128 08/31/2014 ([id number]) OFFICE/OUTPATIENT VISIT EST Diagnosis: - I - HYPERTENSION[ICD9: 401.9] Diagnosis: HYPERLIPIDEMIA NEC/NOS[ICD9: 272.4] María Elena [facility]IA[facility] DO [facility] CPT-4: 38450 08/27/2014 ([id number]) OFFICE/OUTPATIENT VISIT EST Diagnosis: ABDOMINAL PAIN[ICD9: 789.00] Diagnosis: DYSPEPSIA[ICD9: 536.8] Diagnosis: Thoracic back pain[ICD9: 724.1] María Elena [facility]IAH DO [facility] CPT-4: 35602 07/21/2014 ([id number]) OFFICE/OUTPATIENT VISIT EST Diagnosis: ALLERGIC RHINITIS[ICD9: 477.9] María Elena [facility]IAH DO [facility] CPT-4: 10442 07/15/2014 ([id number]) OFFICE/OUTPATIENT VISIT EST Diagnosis: EDEMA[ICD9: 782.3] Diagnosis: Chronic insomnia[ICD9: 780.52] María Elena [facility] DO [facility] CPT-4: 22057 05/18/2014 ([id number]) OFFICE/OUTPATIENT VISIT EST Diagnosis: Thyromegaly[ICD9: 240.9] Diagnosis: - I - HYPERTENSION[ICD9: 401.9] Diagnosis: ROUTINE MEDICAL EXAM[ICD9: V70.0] Diagnosis: EDEMA[ICD9: 782.3] María Elena [facility] DO [facility] CPT-4: 47928 05/14/2014 OFFICE/OUTPATIENT VISIT EST Diagnosis: BRONCHITIS, ACUTE[ICD9: 466.0] Diagnosis: SINUSITIS, ACUTE[ICD9: 461.9] María Elena [facility] DO [facility] CPT-4: 63134 04/21/2014 OFFICE/OUTPATIENT VISIT EST Diagnosis: SINUSITIS, ACUTE[ICD9: 461.9] June Flores MARÍA ELENA [facility] DO [facility] CPT-4: 03424 03/04/2014 ([id number]) OFFICE/OUTPATIENT VISIT EST Diagnosis: VACCINE FOR TDAP[ICD10: Z23] María Elena [facility] CPT-4: 20769 02/27/2014 ([id number]) OFFICE/OUTPATIENT VISIT EST Diagnosis: Seborrheic keratoses, inflamed[ICD9: 702.11] Diagnosis: ACTINIC KERATOSIS[ICD9: 702.0] Diagnosis: INSOMNIA NOS[ICD9: 780.52] María Elena PANDYA [facility] CPT-4: 12906 01/13/2014 OFFICE/OUTPATIENT VISIT EST Diagnosis: EUSTACHIAN TUBE DYSFUNCTION[ICD9: 381.81] Diagnosis: ALLERGIC RHINITIS[ICD9: 477.9] Diagnosis: Serous otitis media[ICD9: 381.4] María Elena ORTA [facility] CPT-4: 65049 12/24/2013 ([id number]) OFFICE/OUTPATIENT VISIT EST Diagnosis: SINUSITIS, ACUTE[ICD9: 461.9] Diagnosis: ALLERGIC RHINITIS[ICD9: 477.9] Diagnosis: EUSTACHIAN TUBE DYSFUNCTION[ICD9: 381.81] [facility] 67635 11/12/2013 ([id number]) OFFICE/OUTPATIENT VISIT EST Diagnosis: ALLERGIC RHINITIS[ICD9: 477.9] Diagnosis: SINUSITIS, ACUTE[ICD9: 461.9] [facility]: 76014 10/21/2013 ([id number]) OFFICE/OUTPATIENT VISIT EST Diagnosis: ASYMPTOMATIC VARICOSE VEINS[ICD9: 454.9] Diagnosis: INSOMNIA NOS[ICD9: 780.52] [facility]: 83421 09/22/2013 OFFICE/OUTPATIENT VISIT EST Diagnosis: SINUSITIS, ACUTE[ICD9: 461.9] June Flores MARÍA ELENA ORTA [employer] [facility] CPT-4: 23834 08/27/2013 ([id number]) OFFICE/OUTPATIENT VISIT EST Diagnosis: CEPHALGIA[ICD9: 784.0] Diagnosis: CEPHALGIA, TENSION[ICD9: 307.81] 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] María Elena APPIAH [employer] [facility] CPT-4: 30020 08/04/2013 ([id number]) OFFICE/OUTPATIENT VISIT EST Diagnosis: Cervicalgia[ICD9: 723.1] Diagnosis: SPASM OF MUSCLE[ICD9: 728.85] Diagnosis: CEPHALGIA, TENSION[ICD9: 307.81] María Elena Td ELLISLINE Fabiola APPIAH DO [facility] CPT-4: 76144 07/23/2013 ([id number]) OFFICE/OUTPATIENT VISIT EST Diagnosis: EUSTACHIAN TUBE DYSFUNCTION[ICD9: 381.81] Diagnosis: ALLERGIC RHINITIS[ICD9: 477.9] María Elena APPIAH [facility] CPT-4: 80641 06/23/2013 ([id number]) OFFICE/OUTPATIENT VISIT EST Diagnosis: ALLERGIC RHINITIS[ICD9: 477.9] Diagnosis: ACUTE SEROUS OTITIS MEDIA[ICD9: 381.01] Diagnosis: EUSTACHIAN TUBE DYSFUNCTION[ICD9: 381.81] María Elena Td ELLISLINE LucioJj TD [facility] CPT-4: 26843 05/26/2013 ([id number]) OFFICE/OUTPATIENT VISIT EST Diagnosis: HYPERTENSION[ICD9: 401.9] Diagnosis: EDEMA[ICD9: 782.3] Diagnosis: Serous otitis media[ICD9: 381.4] María Elena ELLISLINE LucioJj TD [facility] CPT-4: 05717 04/16/2013 ([id number]) OFFICE/OUTPATIENT VISIT EST Diagnosis: SINUSITIS, ACUTE[ICD9: 461.9] Diagnosis: ALLERGIC RHINITIS[ICD9: 477.9] Diagnosis: EDEMA[ICD9: 782.3] Diagnosis: Thyromegaly[ICD9: 240.9] Diagnosis: MALAISE AND FATIGUE[ICD9: 780.79] María Elena Seamusmindimaryjane JAROD Lopez LucioJj TD [employer] [facility] CPT-4: 54917 03/05/2013 ([id number]) OFFICE/OUTPATIENT VISIT EST Diagnosis: PAIN, LOWER BACK[ICD9: 724.2] Diagnosis: SPASM OF MUSCLE[ICD9: 728.85] María Elena JUARES LucioJj TD [facility] CPT-4: 86966 12/23/2012 OFFICE/OUTPATIENT VISIT EST Diagnosis: Low back pain[ICD9: 724.2] Lashawn [facility] 28802 12/16/2012 ([id number]) OFFICE/OUTPATIENT VISIT EST Diagnosis: PAIN, LOWER BACK[ICD9: 724.2] Diagnosis: SCIATICA[ICD9: 724.3] Diagnosis: Lumbar herniated disc[ICD9: 722.10] María Elena COLON LucioJj TD [facility] CPT-4: 94674 12/09/2012 ([id number]) OFFICE/OUTPATIENT VISIT EST Diagnosis: PAIN, LOWER BACK[ICD9: 724.2] Diagnosis: SCIATICA[ICD9: 724.3] Diagnosis: LUMBAR DISC DISPLACEMENT[ICD9: 722.10] María Elena MARIN LucioJj [facility]: 70614 12/04/2012 OFFICE/OUTPATIENT VISIT EST Diagnosis: Pneumonia[ICD9: 486] Mary JUARES LucioJj MARIVEL [employer] [facility] CPT-4: 25101 11/22/2012 ([id number]) OFFICE/OUTPATIENT VISIT EST Diagnosis: PNEUMONIA, ORGANISM[ICD9: 486] Diagnosis: Exacerbation of RAD (reactive airway disease)[ICD9: 493.92] María Elenamarcella JUARES LucioJj TD [facility] CPT-4: 06352 11/21/2012 OFFICE/OUTPATIENT VISIT EST Diagnosis: HYPERTENSION[ICD9: 401.9] Diagnosis: Cephalgia[ICD9: 784.0] Lashawn Hicks TD GARIBAY [facility] CPT-4: 27736 10/29/2012 ([id number]) OFFICE/OUTPATIENT VISIT EST Diagnosis: MALAISE AND FATIGUE[ICD9: 780.79] Diagnosis: ARTHRALGIA-MULTIPLE SITES[ICD9: 719.49] María Elena REED LucioJj TD [employer] [facility] CPT-4: 41791 10/14/2012 ([id number]) OFFICE/OUTPATIENT VISIT EST Diagnosis: URINARY FREQUENCY[ICD9: 788.41] María Elena JUARES LucioJj TD [facility] CPT-4: 40437 09/27/2012 ([id number]) OFFICE/OUTPATIENT VISIT EST Diagnosis: MALAISE AND FATIGUE[ICD9: 780.79] Diagnosis: ARTHRALGIA-MULTIPLE SITES[ICD9: 719.49] María Elena APPIAH [facility] CPT-4: 03913 09/25/2012 ([id number]) OFFICE/OUTPATIENT VISIT EST Diagnosis: SINUSITIS, ACUTE[ICD9: 461.9] Diagnosis: EUSTACHIAN TUBE DYSFUNCTION[ICD9: 381.81] María Elena APPIAH DO [facility] CPT-4: 99311 08/29/2012 OFFICE/OUTPATIENT VISIT EST Diagnosis: ACTINIC KERATOSIS[ICD9: 702.0] Diagnosis: Inflamed seborrheic keratosis[ICD9: 702.11] Diagnosis: Skin cancer of face[ICD9: 173.31] Diagnosis: HYPERTENSION[ICD9: 401.9] María Elena SEYMOUR [facility] CPT-4: 50303 08/12/2012 ([id number]) OFFICE/OUTPATIENT VISIT EST Diagnosis: ARTHRALGIA-MULTIPLE SITES[ICD9: 719.49] Diagnosis: GOUT[ICD9: 274.9] Diagnosis: HYPERTENSION[ICD9: 401.9] Diagnosis: Tachycardia[ICD9: 785.0] María Elena HU [facility] CPT-4: 21355 05/06/2012 ([id number]) OFFICE/OUTPATIENT VISIT EST Diagnosis: INSOMNIA NOS[ICD9: 780.52] [facility]: 77698 04/03/2012 ([id number]) OFFICE/OUTPATIENT VISIT EST Diagnosis: INSOMNIA NOS[ICD9: 780.52] Diagnosis: HYPERTENSION[ICD9: 401.9] Diagnosis: MIGRAINE NOS/NOT INTRCBL[ICD9: 346.90] María Elena [facility]: 05884 03/19/2012 ([id number]) OFFICE/OUTPATIENT VISIT EST Diagnosis: CELLULITIS[ICD9: 682.9] Diagnosis: Ankle pain[ICD9: 719.47] Diagnosis: HYPERTENSION[ICD9: 401.9] María Elena WAY NDER [facility] CPT-4: 71523 02/20/2012 ([id number]) OFFICE/OUTPATIENT VISIT EST Diagnosis: MIGRAINE NOS/NOT INTRCBL[ICD9: 346.90] Diagnosis: Vomiting[ICD9: 787.03] María Elena Waymindimaryjane ELLISMARÍA ELENA LucioJj CIRO Bazzi [facility] CPT-4: 61626 01/30/2012 ([id number]) OFFICE/OUTPATIENT VISIT EST Diagnosis: EDEMA[ICD9: 782.3] Diagnosis: HYPERTENSION[ICD9: 401.9] Diagnosis: ALLERGIC RHINITIS[ICD9: 477.9] Diagnosis: ARTHRALGIA-MULTIPLE SITES[ICD9: 719.49] María Elena Seamusabbey KYLAH BRAUNALCIDES LucioJj TD [employer] [facility] CPT-4: 69859 01/24/2012 ([id number]) OFFICE/OUTPATIENT VISIT EST Diagnosis: SPASM OF MUSCLE[ICD9: 728.85] Diagnosis: Thoracic back pain[ICD9: 724.1] Diagnosis: Cervical pain[ICD9: 723.1] María Elena Seamusabbey JUARES LucioJj KRISTYN PANDYA [facility] CPT-4: 20565 01/10/2012 OFFICE/OUTPATIENT VISIT EST Diagnosis: PAIN, LOWER BACK[ICD9: 724.2] Diagnosis: LUMBAR DISC DISPLACEMENT[ICD9: 722.10] María Elena Seamusabbey MARIN LucioJj TD [employer] [facility] CPT-4: 38192 12/11/2011 OFFICE/OUTPATIENT VISIT EST Diagnosis: MIGRAINE NOS/NOT INTRCBL[ICD9: 346.90] Diagnosis: SINUSITIS, ACUTE[ICD9: 461.9] María Elena Seamusabbey JUARES LucioJj TD [employer] [facility] CPT-4: 95755 11/09/2011 OFFICE/OUTPATIENT VISIT EST Diagnosis: MIGRAINE NOS/NOT INTRCBL[ICD9: 346.90] Diagnosis: LYMPHADENOPATHY[ICD9: 785.6] María Elena Seamusabbey JUARES LucioJj TD [employer] [facility] CPT-4: 30439 09/13/2011 OFFICE/OUTPATIENT VISIT EST Diagnosis: MALAISE AND FATIGUE[ICD9: 780.79] Diagnosis: ARTHRALGIA-MULTIPLE SITES[ICD9: 719.49] María Elena Seamusabbey REED LucioJj TD [employer] [facility] CPT-4: 55498 08/31/2011 OFFICE/OUTPATIENT VISIT EST Diagnosis: SINUSITIS, ACUTE[ICD9: 461.9] María Elena ORTAER DO [facility] CPT-4: 32202 07/20/2011 OFFICE/OUTPATIENT VISIT EST Diagnosis: HYPERTENSION[ICD9: 401.9] Diagnosis: PAIN, LOWER BACK[ICD9: 724.2] Diagnosis: SPASM OF MUSCLE[ICD9: 728.85] María Elena ORTAER DO [facility] CPT-4: 17632 07/06/2011 OFFICE/OUTPATIENT VISIT EST Diagnosis: MIGRAINE NOS/NOT INTRCBL[ICD9: 346.90] Diagnosis: HYPERTENSION[ICD9: 401.9] María Elena WAY NDER DO [facility] CPT-4: 15746 05/22/2011 OFFICE/OUTPATIENT VISIT EST Diagnosis: SINUSITIS, ACUTE[ICD9: 461.9] Diagnosis: MIGRAINE NOS/NOT INTRCBL[ICD9: 346.90] Diagnosis: Dehydration[ICD9: 276.51] Diagnosis: Vomiting[ICD9: 787.03] María Elena ORTAE R DO [facility] CPT-4: 20197 05/09/2011 ([id number]) OFFICE/OUTPATIENT VISIT EST María Elena ISAAC UJARED S. ORENDER DO [facility] CPT-4: 46076 02/14/2011 ([id number]) OFFICE/OUTPATIENT VISIT EST María Elena ISAAC UELINE S. ORENDER DO [facility] CPT-4: 95877 02/03/2011 ([id number]) OFFICE/OUTPATIENT VISIT EST María Elena ISAAC UELINE S. OREND[facility] DO [facility] CPT-4: 18588 01/31/2011 ([id number]) OFFICE/OUTPATIENT VISIT EST María Elena ISAAC UELINE S. ORENDER DO [facility] CPT-4: 36337 01/25/2011 ([id number]) OFFICE/OUTPATIENT VISIT EST María Elena ISAAC UELINE S. ORENDER DO [facility] CPT-4: 62610 01/18/2011 ([id number]) OFFICE/OUTPATIENT VISIT EST María Elena ISAAC UELINE S. ORENDER DO [facility] CPT-4: 40083 11/29/2010 ([id number]) OFFICE/OUTPATIENT VISIT, EST María Elena [facility] CPT-4: 91970 10/10/2010 ([id number]) OFFICE/OUTPATIENT VISIT, EST María Elena MONTERO QUELINE [facility] CPT-4: 38183 06/07/2010 ([id number]) OFFICE/OUTPATIENT VISIT, EST María Elena MONTERO QUELINE [facility] CPT-4: 13254 04/27/2010 ([id number]) OFFICE/OUTPATIENT VISIT, EST María Elena [facility] CPT-4: 99528 04/05/2010 ([id number]) OFFICE/OUTPATIENT VISIT, EST María Elena MONTERO QUELINE [facility] CPT-4: 23758 03/09/2010 ([id number]) OFFICE/OUTPATIENT VISIT, EST María Elena [facility] CPT-4: 34404 03/03/2010 ([id number]) OFFICE/OUTPATIENT VISIT, EST María Elena [facility] CPT-4: 52605 01/17/2010 ([id number]) PREV VISIT, EST, AGE 40-64 María Elena CO[facility]MAN [facility] CPT-4: 36309 12/27/2009 Plan of Care Planned Activity Notes Codes Status Date Appointment: María Elena [facility] [phone] [id number] [place] Won't have the new insurance till [...] W06.XXXS 05/28/2019 Appointment: María Elena [facility]iah [facility] [phone] [facility] [place] FOLLOW UP 05/28/2019 Appointment: María Elena Appiah WPtel: [address] [place], [place] [phone] [place] BP CHECK 05/19/2019 Visit Diagnosis Plan: [...] 01/22/2019 Appointment: María Elena Appiah WPtel: [address] [place], [place] [phone] [place] FOLLOW UP 01/22/2019 Patient Education: estradiol- [employer] Coupon [id number] [email or web address] - Dein Lernprogramm im Leben/samplemd/resources/getResource/[email or web address] Completed 01/22/2019 Appointment: María Elena Appiah WPtel: [address] [place], [place] [phone] [place] CANCELED 01/20/2019 Appointment: María Elena Appiah WPtel: [address] [place], [place] [phone] [place] LM NO SHOW 01/06/2019 Appointment: María Elena Appiah WPtel: [address] [place], [place] [phone] [place] CANCELED 10/17/2018 Appointment: María Elena Appiah WPtel: [address] [place], [place] [phone] [place] BP CHECK 10/09/2018 Visit Diagnosis Plan: [...] 09/30/2018 Appointment: María Elena Appiah WPtel: [address] [place], [place] [phone] [place] FOLLOW UP 09/30/2018 Visit Diagnosis Plan: [...] F51.01 08/27/2018 Appointment: María Elena Appiah WPtel: [address] [place] [address] ACUTE ILLNESS 08/27/2018 Appointment: María Elena Appiah WPtel: [address] [place] [address] [place] Patient stated she went out to [...] prn. Tyle... 08/09/2018 Appointment: María Elena Appiahtel: [address] [place] [address] ACUTE ILLNESS 08/09/2018 Appointment: María Elena Appiah WPtel: [address] [place] [address] NO SHOW 08/08/2018 Visit Diagnosis Plan: Anxiety [...] : B35.4 07/22/2018 Appointment: María Elena Appiahtel: [address] [place] [address] ACUTE ILLNESS 07/22/2018 Appointment: María Elena Appiah WPtel: [address] [place] [address] [place] INJECTION 06/19/2018 Patient Education: Patient Medication [...] : L03.031 06/17/2018 Appointment: Kathleen Zuniga [address] [place] [address] ACUTE ILLNESS 06/17/2018 Patient Education: Patient Medication [...] ICD-10 : B02.9 05/16/2018 Appointment: Kathleen Zuniga [address] [place] [address] ACUTE ILLNESS 05/16/2018 Patient Education: Patient Medication [...] ICD-10 : L03.115 03/20/2018 Appointment: Kathleen Zuniga [address] [place], [place] [phone] FOLLOW UP 03/20/2018 Patient Education: Patient Medication [...] ICD-10 : L03.115 03/18/2018 Appointment: Kathleen Zuniga [address] [place], [place] [phone] FOLLOW UP 03/18/2018 Patient Education: Patient Medication [...] ICD-10 : L03.115 03/15/2018 Appointment: Kathleen Zuniga [address] [place] [address] ACUTE ILLNESS 03/15/2018 Patient Education: Patient Medication [...] ICD-10 : J01.90 02/11/2018 Appointment: Kathleen Zuniga [address] [place] [address] ACUTE ILLNESS 02/11/2018 Patient Education: Patient Medication Summary Completed 02/11/2018 Appointment: María Elena Appiah WPtel: [phone] [facility] [place] INJECTION 02/01/2018 Patient Education: [...] ICD-10 : M51.16 01/30/2018 Appointment: Kathleen Zuniga [address] [place] [address] ACUTE ILLNESS 01/30/2018 Patient Education: Patient Medication [...] 12/18/2017 Appointment: María Elena Appiah WPtel: [address] [place] [address] Annual Well Visit 12/18/2017 Patient Education: Patient Medication Summary Completed 12/18/2017 Care Plan: Referral Order SNOMED-CT : [id number] Pending 12/18/2017 Appointment: María Elena Appiah WPtel: [address] [place] [address] [place] INJECTION 12/10/2017 Patient Education: Patient Medication [...] : L03.031 12/07/2017 Appointment: Kathleen Zuniga [address] [place] [address] ACUTE ILLNESS 12/07/2017 Patient Education: Patient Medication [...] ICD-10 : J01.00 10/08/2017 Appointment: Kathleen Zuniga [address] [place] [address] ACUTE ILLNESS 10/08/2017 Patient Education: Patient Medication Summary Completed 10/08/2017 Appointment: María Elena Appiah WPtel: [phone] [id number] INJECTION 09/21/2017 Patient Education: Patient Medication [...] : R06.83 09/20/2017 Appointment: Kathleen Zuniga [address] [employer] [facility] ACUTE ILLNESS 09/20/2017 Patient Education: [...] : L60.0 08/29/2017 Appointment: Kathleen Zuniga [address] [employer] [id number] OFFICE SURGERY 08/29/2017 Patient Education: Patient Medication Summary Completed 08/29/2017 Visit Diagnosis Plan: Actinic keratosis Discussion: Cr yotherapy as above ICD-9 : 702.0 ICD-10 : L57.0 08/01/2017 Appointment: María Elena Appiah WPtel: [facility] OFFICE SURGERY 08/01/2017 Patient Education: Patient Medication Summary Completed 08/01/2017 Appointment: María Elena Appiah WPtel: [phone] [facility] PATIENT THOUGHT APPOINTMENT WAS TOMORROW 07/26/17 CALLED 15 MINUTES BEFORE APPT TO SAY SHE DIDN'T HAVE ANYONE TO COVER HER BUSINESS AND WOULD NOT MAKE IT NO SHOW 07/25/2017 Visit Diagnosis Plan: Cellulitis of left toe Discussio n: Clindamycin and notify if worsening or persistis ICD-9 : 681.10 ICD-10 : L03.032 07/19/2017 Appointment: María Elena Appiah WPtel: [facility] MEDICATION REVIEW 07/19/2017 Patient Education: Patient Medication Summary Completed 07/19/2017 Appointment: María Elena Appiah WPtel: [phone] [facility] [place] CANCELED 07/04/2017 Visit Diagnosis Plan: Generalized hyperhidrosis Discus ian: CBC, CMP, TSH, free T4 ordered to assess. will review labs. ICD-9 : 780.8 ICD-10 : R61 06/27/2017 Visit Diagnosis Plan: Chronic sinusitis, unspecified D iscussion: Referral sent to dr. albarado in ward per patient request. patient has been treated multiple times for sinus infections with no recovery. patient was seen by dr sanchez in the past with no interventions. patient has deviated septum which may be affecting her sinuses. 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, including hip Discussion: Shave removal of above lesio n--sent to pathology ICD-9 : 216.7 ICD-10 : D23.72 01/24/2017 Appointment: María Elena Appiah WPtel: [address] [place], [place] [phone] 01/23 confirmed ~ OFFICE SURGERY 01/24/2017 Patient Education: Patient Medication Summary Completed 01/24/2017 Appointment: Loan Sánchez [address] [place], [place] [phone] 01/09 rescheduled~sl RESCHEDULED 01/15/2017 Visit Diagnosis [...] 12/13/2016 Appointment: María Elena [facility]el[facility] [phone] [id number] [place] 12/12 confirmed ~sl MEDICATION REVIEW 12/13/2016 Patient Education: Patient Medication Summary Completed 12/13/2016 Appointment: Mraía Elena Appiah [facility]Ptel: [phone] [id number] [place] rescheduled for 12/13/16 at 11am [...] 11/01/2016 Appointment: María Elena Appiah [facility]Ptel: [phone] [facility] [place] 10/31 lm `sl 11/01 lm`sl MEDICATION REVIEW 017 Patient Education: Patient Medication Summary Completed 11/01/2016 Referral: Canelo Overton WPtel: [phone] [id number] [place] Referral Initiated 10/30/2016 Visit Diagnosis Plan: [...] 10/17/2016 Appointment: María Elena Appiah WPtel: [address] [place], [place] [phone] 10/16 confirmed ~sl PAP 10/17/2016 Patient Education: Patient Medication Summary Completed 10/17/2016 Care Plan: MAMMOGRAM SCREENING LOINC : 2 6347-5 Pending 10/17/2016 Visit Diagnosis Plan: Other seasonal allergic rhinitis Discussion: Decadron/Garamycin Nasal Drayden Mix Too soon for steroid Retry zyrtec 10mg daily ICD-9 : 477.9 ICD-10 : J30.2 10/10/2016 Appointment: María Elena Appiah WPtel: [address] [place], [place] [phone] FOLLOW UP 10/10/2016 Patient Education: Patient Medication Summary Completed 10/10/2016 Appointment: María Elena Appiah WPtel: [address] [place], [place] [phone] 10/02 reschedule `sl RESCHEDULED 10/02/2016 Visit Plan: See surgery for removal of n ew left arm lesion and right foot lesion Lyrica to use next month for left arm paresthesias Continue current meds Discussed sunscreen/sunblock combo 09/19/2016 Appointment: María Elena Appiah WPtel: [address] [place], [place] [phone] 09/18 confirmed ~sl FOLLOW UP 09/19/2016 Patient Education: Patient Medication Summary Completed 09/19/2016 Patient Education: Patient Medication Summary Completed 09/18/2016 Care Plan: MAMMOGRAM BOTH BREASTS LOINC : 86317-3 Pending 09/18/2016 Visit Plan: Discussed that needs [...] 08/24/2016 Appointment: María Elena Appiah WPtel: [address] [place] [address] ACUTE ILLNESS 08/24/2016 Patient Education: Patient Medication Summary Completed 08/24/2016 Patient Education: Patient Medication Summary Completed 08/23/2016 Care Plan: MAMMOGRAM SCREENING LOINC : 2 6347-5 Pending 08/23/2016 Visit Plan: Finish doxycycline Add Breo 100/25 1 p BID for 2 weeks If not improving within next 2 days will get CXR 08/16/2016 Appointment: María Elena Appiah WPtel: [address] [place] [address] ACUTE ILLNESS 08/16/2016 Patient Education: Patient Medication Summary Completed 08/16/2016 Visit Plan: Supportive care. Rest, Fluid s, Tylenol/Motrin prn fever or bodyaches. Notify if worsening symptoms. Doxycyline and Prednisone 08/10/2016 Appointment: María Elena Appiah WPtel: [address] [place] [address] 08/09 lm`sl....confirmed-sp FOLLOW UP 09/2015 Patient Education: Patient Medication Summary Completed 08/10/2016 Visit Plan: Saline nasal flushes prn. Ty lenol/Motrin prn headache. Notify if persists/symptoms worsening. Dexamethasone 8mg IM today May use coricedan and mucinex 08/02/2016 Appointment: María Elena Appiah WPtel: [address] [place] [address] ACUTE ILLNESS 08/02/2016 Patient Education: Patient Medication Summary Completed 08/02/2016 Visit Plan: Cryotherapy as above and lef t forearm lesion removal as above with 5-0 punch biopsy and sent to path Return in 10 days for suture removal 08/01/2016 Appointment: María Elena Appiah WPtel: [address] [place] [address] 07/31 confirmed`~sl OFFICE SURGERY 08/01/2016 Patient Education: Patient Medication Summary Completed 08/01/2016 Visit Plan: Stop clindamycin Check CBC, CMP, ESR now/STAT 07/27/2016 Appointment: María Elena Appiah WPtel: [address] [place] [address] ACUTE ILLNESS 07/27/2016 Patient Education: Patient Medication Summary Completed 07/27/2016 Visit Plan: Update lab and check ABIs to start with Will likely need cardiology evaluation to rule out PVD Clindamycin for 10 days Daily yogurt or probiotic Will return for removal of left arm lesions 07/20/2016 Appointment: María Elena Appiah WPtel: [address] [place] [address] ACUTE ILLNESS 07/20/2016 Patient Education: Patient Medication Summary Completed 07/20/2016 Patient Education: Patient Medication Summary Completed 07/20/2016 Care Plan: MAMMOGRAM BOTH BREASTS LOINC : 58675-0 Pending 07/20/2016 Care Plan: US EXAM CHEST LOINC : 68464-2 Pending 07/20/2016 Visit Plan: Wound culture collected from left great toe Appearance is somewhat staph like Rx as above Wound cleanser and skin care reviewed May need to add oral antibiotic if sores do not heal or continue to reoccur 07/06/2016 Appointment: Loan Sánchez [address] [place] [address] ACUTE ILLNESS 07/06/2016 Patient Education: Patient Medication Summary Completed 07/06/2016 Appointment: María Elena Appiah WPtel: [address] [place] [address] [place] INJECTION 05/25/2016 Patient Education: Patient Medication Summary Completed 05/25/2016 Visit Plan: Saline nasal flushes prn. Ty lenol/Motrin prn headache. Notify if persists/symptoms worsening. Dexamethasone and Rocephin given 04/26/2016 Appointment: María Elena Appiah WPtel: [address] [place] [address] ACUTE ILLNESS 04/26/2016 Patient Education: Patient Medication Summary Completed 04/26/2016 Visit Plan: Check CBC, CMP, TSH, FreeT4, HbA1C, estradiol, lipids in AM 03/02/2016 Appointment: María Elena Appiah WPtel: [address] [place] [address] 03/01 lm~sl ACUTE ILLNESS 03/02/2016 Patient Education: Patient Medication Summary Completed 03/02/2016 Visit Plan: Exam is nearly normal Needs to be taking daily antihistamine Would prefer to use oral steroids instead of shot but patient insist that oral steroids cause horrible headaches for her Will given kenalog IM instead 02/09/2016 Appointment: Loan Sánchez [address] [place] [address] ACUTE ILLNESS 02/09/2016 Patient Education: Patient Medication Summary Completed 02/09/2016 Visit Plan: Culture urine Macrobid DC xa nax Trial of Ativan 1mg q HS 01/24/2016 Appointment: María Elena Appiah WPtel: [address] [place] [address] ACUTE ILLNESS 01/24/2016 Patient Education: Patient Medication Summary Completed 01/24/2016 Visit Plan: No steroid or rocephin injec tion warranted Can have oral prednisone Continue current home regimen Needs to follow up with Dr Sanchez if problems persist 12/23/2015 Appointment: Loan Sánchez [address] [place] [address] ACUTE ILLNESS 12/23/2015 Patient Education: Patient Medication Summary Completed 12/23/2015 Visit Plan: Saline nasal flushes prn. Ty lenol/Motrin prn headache. Notify if persists/symptoms worsening. Kenalog 40mg IM today 12/08/2015 Appointment: María Elena Appiah WPtel: [address] [place], [place] [phone] 12/06 confirmed~sl ACUTE ILLNESS 12/08/2015 Patient Education: Patient Medication Summary Completed 12/08/2015 Appointment: María Elena Appiah WPtel: [address] [place] [address] ACUTE ILLNESS 11/18/2015 Patient Education: Patient Medication Summary Completed 10/11/2015 Appointment: María Elena Appiah WPtel: [address] [place], [place] [phone] [place] INJECTION 10/07/2015 Patient Education: Patient Medication Summary Completed 10/07/2015 Visit Plan: Check renal arterial doppler s and ECHO Change amlodopine to lotrel 5/20mg q HS Will need stress test as well Check CMP, uric acid, ESR 10/06/2015 Appointment: María Elena Appiah WPtel: [address] [place] [address] ACUTE ILLNESS 10/06/2015 Patient Education: Patient Medication Summary Completed 10/06/2015 Patient Education: [facility] - Saving AutoInj - Amlodipine Besylate - 18-64 - Dynamic Portal ID Completed 10/06/2015 Appointment: María Elena Appiah WPtel: [address] [place], [place] [id number] FOLLOW UP 09/22/2015 Visit Plan: Cephalexin 500 mg PO bid Mery ly topical Mupirocin to lesions on left lateral neck and face Follow-up in one week. Sooner if symptoms worsen 09/14/2015 Appointment: June Flores WPtel: [address] [place] [address] ACUTE ILLNESS 09/14/2015 Patient Education: Patient Medication Summary Completed 09/14/2015 Visit Plan: Change bystolic to bedtime d osing and amlodopine to morning dosing Cryotherapy as above to AKs 09/07/2015 Appointment: MaríaE lena Appiah WPtel: [address] [place], [place] [phone] 09/06 appointment made and confirmed ~ FOLLOW UP 09/07/2015 Patient Education: Patient Medication Summary Completed 09/07/2015 Visit Plan: Increase bystolic back to 20 mg daily but will split and take 10mg in AM and 10mg in PM Stress Reducers 08/18/2015 Appointment: María Elena Appiah WPtel: [address] [place], [place] [phone] 08/17/15 appt confirmed cn ACUTE ILLNESS 08/18 Patient Education: Patient Medication Summary Completed 08/18/2015 Appointment: María Elena Appiah WPtel: [address] [place], [place] [phone] BP CHECK 07/07/2015 Patient Education: Patient Medication Summary Completed 07/07/2015 Appointment: María Elena Appiah WPtel: [address] [place], [place] [phone] BP CHECK 06/24/2015 Patient Education: Patient Medication Summary Completed 06/24/2015 Appointment: María Elena Appiah WPtel: [address] [place], [place] [phone] BP CHECK 06/21/2015 Patient Education: Patient Medication Summary Completed 06/21/2015 Visit Plan: Lab discussed Continue suhail nt meds and lifestyle modification Recheck lab in 6mos 06/16/2015 Appointment: María Elena Appiah WPtel: [address] [place] [address] 06/15 confirmed FOLLOW UP 06/16/2015 Patient Education: Patient Medication Summary Completed 06/16/2015 Patient Education: Patient Medication Summary Completed 06/15/2015 Visit Plan: Increase cymbalta to 60mg q HS Keep clonidine at current dose Recheck 2weeks Change xanax to klonopin 06/02/2015 Appointment: María Elena Appiah WPtel: [address] [place], [place] [phone] 06/02 lm FOLLOW UP 06/02/2015 Patient Education: Patient Medication Summary Completed 06/02/2015 Appointment: María Elena Appiah WPtel: [address] [place], [place] [phone] ACUTE ILLNESS 05/24/2015 Visit Plan: Increase clonidine to 0.2mg q HS Add cymbalta 30mg q HS Recheck 2weeks Stress Reducers Check fasting lab Discussed sleep study 05/20/2015 Appointment: María Elena Appiah WPtel: [address] [place] [address] ACUTE ILLNESS 05/20/2015 Patient Education: Patient Medication Summary Completed 05/20/2015 Patient Education: [facility] - Saving AutoInj - Cymbalta - 18-64 - Dynamic Portal ID Completed 05/20/2015 Appointment: María Elena Appiah WPtel: [address] [place] [address] BP CHECK 05/19/2015 Patient Education: Patient Medication Summary Completed 05/19/2015 Visit Plan: Topical Bactroban alternatin g with topical betamethasone Recheck 2weeks 05/10/2015 Appointment: María Elena Appiah WPtel: [address] [place] [address] 05/07 vm cn...05/07 appt confirmed OFFICE SURGER Y 05/10/2015 Patient Education: Patient Medication Summary Completed 05/10/2015 Referral: Patrick Chandler WPtel: [address] [place] [address] Referral Initiated 05/04/2015 Visit Plan: Saline nasal flushes prn. Ty lenol/Motrin prn headache. Notify if persists/symptoms worsening. Depomedrol 40mg IM today 03/16/2015 Appointment: María Elena Appiah WPtel: [address] [place] [address] ACUTE ILLNESS 03/16/2015 Patient Education: Patient Medication Summary Completed 03/16/2015 Appointment: María Elena Appiah WPtel: [address] [place] [address] ER Follow UP 03/09/2015 Visit Plan: Cryotherapy to lesions as ab ove 10/27/2014 Appointment: María Elena Appiah WPtel: [address] [place] [address] OFFICE SURGERY 10/27/2014 Patient Education: Patient Medication Summary Completed 10/27/2014 Appointment: June Flores WPtel: [address] [place] [address] ACUTE ILLNESS 09/11/2014 Patient Education: Patient Medication Summary Completed 09/11/2014 Visit Plan: Lab discussed Lipitor 10mg d aily Coenzyme Q-10 400mg daily Vitamin D3 5000u daily Recheck lipids with LFTs in 3mos then fwup 08/31/2014 Appointment: María Elena Appiahtel: [address] [place] [address] 08/28 voicemail FOLLOW UP 08/31/2014 Patient Education: Patient Medication Summary Completed 08/31/2014 Appointment: María Elena Appiah WPtel: [address] [place] [address] LAB 08/27/2014 Appointment: María Elena Appiah WPtel: [address] [place] [address] US LAB 08/27/2014 Patient Education: Patient Medication Summary Completed 08/27/2014 Appointment: María Elena Appiah WPtel: [address] [place] [address] ACUTE ILLNESS 07/23/2014 Appointment: María Elena Appiah WPtel: [address] [place] [address] ACUTE ILLNESS 07/21/2014 Patient Education: Patient Medication Summary Completed 07/21/2014 Visit Plan: Kenalog 40mg IM today Contin ue narendra and singulair Add Flonase 07/15/2014 Appointment: María Elena Appiah WPtel: [address] [place] [address] ACUTE ILLNESS 07/15/2014 Appointment: María Elena Appiah WPtel: [address] [place] [address] ACUTE ILLNESS 07/15/2014 Patient Education: Patient Medication Summary Completed 07/15/2014 Visit Plan: Will do metolazone 2.5mg prn with 6 potassium and see if causes as severe cramping Trial of of seroquel XR 50mg q PM with evening meal and let us know how works 05/18/2014 Appointment: María Elena Appiah WPtel: [address] [place], [place] [id number] 05/15 left message FOLLOW UP 05/18/2014 Patient Education: Patient Medication Summary Completed 05/18/2014 Appointment: María Elena Appiah WPtel: [address] [place], [place] [phone] [place] LAB 05/14/2014 Patient Education: Patient Medication Summary Completed 05/14/2014 Appointment: María Elena Appiah WPtel: [address] [place], [place] [phone] [place] INJECTION 04/22/2014 Visit Plan: Tisha and Miranda today a nd finish abx given from urgent care 04/21/2014 Appointment: María Elena Appiah WPtel: [address] [place], [place] [phone] [place] INJECTION 04/21/2014 Patient Education: Patient Medication Summary Completed 04/21/2014 Appointment: June Flores WPtel: [address] [place], [place] [phone] ACUTE ILLNESS 03/04/2014 Patient Education: Patient Medication Summary Completed 03/04/2014 Appointment: María Elena Appiah WPtel: [address] [place], [place] [id number] [place] INJECTION 02/27/2014 Patient Education: Patient Medication Summary Completed 02/27/2014 Visit Plan: Cryotherapy as above to all lesions Patient wants to try no meds for insomnia for a while and see how goes 01/13/2014 Appointment: María Elena Appiah WPtel: [address] [place], [place] [phone] OFFICE SURGERY 01/13/2014 Patient Education: Patient Medication Summary Completed 01/13/2014 Visit Plan: Stop Melatonin Stop Soma Tri al of trazadone 75mg q HS See ENT for possible tubes as has had chronic ETD and serous otitis media with numerous steroids 12/24/2013 Appointment: María Elena Appiah WPtel: [address] [place] [address] ACUTE ILLNESS 12/24/2013 Patient Education: Patient Medication Summary Completed 12/24/2013 Visit Plan: Saline nasal flushes prn. Ty lenol/Motrin prn headache. Notify if persists/symptoms worsening. 11/12/2013 Appointment: María Elena Appiah WPtel: [address] [place] [address] ACUTE ILLNESS 11/12/2013 Patient Education: Patient Medication Summary Completed 11/12/2013 Appointment: María Elena Appiah WPtel: [address] [place] [address] ACUTE ILLNESS 10/21/2013 Patient Education: Patient Medication Summary Completed 10/21/2013 Visit Plan: Sleep hygiene and sleep rout ine Melatonin 10mg q HS Support stockings and observe 09/22/2013 Appointment: María Elena Appiah WPtel: [address] [place] [address] ACUTE ILLNESS 09/22/2013 Patient Education: Patient Medication Summary Completed 09/22/2013 Appointment: June Flores WPtel: [address] [place] [address] ACUTE ILLNESS 08/27/2013 Patient Education: Patient Medication Summary Completed 08/27/2013 Visit Plan: Proceed with CT scan of head /neck Proceed with occipital nerve injections Butrans 20mcg patch weekly until can get into see Dr. Mcdonough for injections 08/04/2013 Appointment: María Elena Appiah WPtel: [address] [place] [address] FOLLOW UP 08/04/2013 Patient Education: Patient Medication Summary Completed 08/04/2013 Visit Plan: OMT done Daily neck stretche s, moist heat Increase Celebrex to 200mg BID Add flexeril 07/23/2013 Appointment: María Elena Appiah WPtel: [address] [place] [address] 07/22 voicemail FOLLOW UP 07/23/2013 Patient Education: Patient Medication Summary Completed 07/23/2013 Appointment: María Elena Appiah WPtel: [address] [place] [address] ACUTE ILLNESS 06/23/2013 Patient Education: Patient Medication Summary Completed 06/23/2013 Appointment: María Elena Appiah WPtel: [address] [place] [address] ACUTE ILLNESS 05/26/2013 Patient Education: Patient Medication Summary Completed 05/26/2013 Visit Plan: Decrease clonidine to 0.1mg TID If BP remains stable consider decreasing amlodopine Prednisone for 5 days BP check in 1mo 04/16/2013 Appointment: María Elena Appiah WPtel: [address] [place] [address] 04/14 pt called and confirmed appt FOLLOW UP 04/16/2013 Patient Education: Patient Medication Summary Completed 04/16/2013 Appointment: María Elena Appiah WPtel: [address] [place] [address] ACUTE ILLNESS 03/05/2013 Patient Education: Patient Medication Summary Completed 03/05/2013 Visit Plan: Pt has MARIA ELENA on with Dr. Sharonda Arita Butrans patch Refill Hydrocodone early tomorrow 12/23/2012 Appointment: María Elena Appiah WPtel: [address] [place] [address] FOLLOW UP 12/23/2012 Patient Education: Patient Medication Summary Completed 12/23/2012 Appointment: Lashawn Eckert WPtel: [address] [place] [address] ACUTE ILLNESS 12/16/2012 Patient Education: Patient Medication Summary Completed 12/16/2012 Visit Plan: Proceed with updated MRI of LS spine Continue gabapentin and add soma and diclofenac Will likely need to go for another epidural 12/09/2012 Appointment: María Elena Appiah WPtel: [address] [place] [address] ACUTE ILLNESS 12/09/2012 Patient Education: Patient Medication Summary Completed 12/09/2012 Visit Plan: Injection as above Finish me drol dose pack Chiropracter this afternoon 12/04/2012 Appointment: María Elena Appiah WPtel: [address] [place], [place] [phone] ACUTE ILLNESS 12/04/2012 Patient Education: Patient Medication Summary Completed 12/04/2012 Appointment: Mary Tillman WPtel: [address] [place], [place] [phone] FOLLOW UP 11/22/2012 Patient Education: Patient Medication Summary Completed 11/22/2012 Appointment: María Elena Appiah WPtel: [address] [place], [place] [phone] ACUTE ILLNESS 11/21/2012 Patient Education: Patient Medication Summary Completed 11/21/2012 Appointment: María Elena Appiah WPtel: [address] [place] [address] BP CHECK 11/07/2012 Patient Education: Patient Medication [...] BP re-check. 10/29/2012 Appointment: Lashawn Eckert WPtel: [address] [place], [place] [phone] ACUTE ILLNESS 10/29/2012 Patient Education: Patient Medication Summary Completed 10/29/2012 Appointment: María Elena Appiah WPtel: [address] [place], [place] [phone] ACUTE ILLNESS 10/14/2012 Patient Education: Patient Medication Summary Completed 10/14/2012 Appointment: María Elena Appiah WPtel: [address] [place], [place] [phone] UA 09/27/2012 Patient Education: Patient Medication Summary Completed 09/27/2012 Appointment: María Elena Appiah WPtel: [address] [place], [place] [phone] ACUTE ILLNESS 09/25/2012 Patient Education: Patient Medication Summary Completed 09/25/2012 Appointment: María Elena Appiah WPtel: [address] [place], [place] [phone] BP CHECK 09/24/2012 Appointment: María Elena Appiah WPtel: [address] [place] [address] ACUTE ILLNESS 08/29/2012 Patient Education: Patient Medication Summary Completed 08/29/2012 Visit Plan: Cryotherapy as above See Karlos m for right ear lesion--probable MOHs procedure Increase amlodopine to 10mg daily 08/12/2012 Appointment: María Elena Appiah WPtel: [address] [place], [place] [phone] OFFICE SURGERY 08/12/2012 Patient Education: Patient Medication Summary Completed 08/12/2012 Appointment: María Elena Appiah WPtel: [address] [place] [address] 05/03 vm on pt phone...pt called on 04/11 3 pt called wanting in had no one cancel so could not get her in for an appt sooner than 05/06. ACUTE ILLNESS 05/06/2012 Patient Education: Patient Medication Summary Completed 05/06/2012 Visit Plan: Pt wants to hold on any furt her sleep medications 04/03/2012 Appointment: María Elena Appiahtel: [address] [place], [place] [phone] FOLLOW UP 04/03/2012 Patient Education: Patient Medication Summary Completed 04/03/2012 Appointment: María Elena Appiah WPtel: [address] [place], [place] [phone] FOLLOW UP 03/19/2012 Patient Education: Patient Medication Summary Completed 03/19/2012 Appointment: María Elena Appiahtel: [address] [place] [address] BP CHECK 02/22/2012 Patient Education: Patient Medication Summary Completed 02/22/2012 Appointment: María Elena Appiahtel: [address] [place] [address] BP CHECK 02/21/2012 Patient Education: Patient Medication Summary Completed 02/21/2012 Visit Plan: Doxycycline and bactroban fo r foot Supportive care on ankles and knees Add norvasc for BP 02/20/2012 Appointment: María Elena Appiahtel: [address] [place] [address] ER Follow UP 02/20/2012 Patient Education: Patient Medication Summary Completed 02/20/2012 Appointment: María Elena Appiahtel: [address] [place] [address] ACUTE ILLNESS 01/30/2012 Patient Education: Patient Medication Summary Completed 01/30/2012 Appointment: María Elena Appiahtel: [address] [place] [address] ACUTE ILLNESS 01/24/2012 Patient Education: Patient Medication Summary Completed 01/24/2012 Visit Plan: Daily back stretches, moist heat, Biofreeze prn OMT done 01/10/2012 Appointment: María Elena Appiahtel: [address] [place] [address] ACUTE ILLNESS 01/10/2012 Patient Education: Patient Medication Summary Completed 01/10/2012 Appointment: María Elena Appiahtel: [address] [place] [address] FOLLOW UP 12/11/2011 Patient Education: Patient Medication Summary Completed 12/11/2011 Appointment: María Elena Appiahtel: [address] [place] [address] ACUTE ILLNESS 11/09/2011 Patient Education: Patient Medication Summary Completed 11/09/2011 Appointment: María Elena Appiahtel: [address] [place] [address] ACUTE ILLNESS 09/13/2011 Patient Education: Patient Medication Summary Completed 09/13/2011 Visit Plan: Check CBC, TSH, Free T4, CMP , ESR, Vit D, B12 now Start Prednisone today 08/31/2011 Appointment: María Elena Appiah WPtel: [address] [place] [address] ACUTE ILLNESS 08/31/2011 Patient Education: Patient Medication Summary Completed 08/31/2011 Appointment: María Elena Appiahtel: [address] [place] [address] [place] INJECTION 07/20/2011 Patient Education: Patient Medication Summary Completed 07/20/2011 Visit Plan: Continue current meds Monite r BP Cont stretches from PT 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 07/06/2011 Appointment: María Elena Appiah WPtel: [address] [place] [address] FOLLOW UP 07/06/2011 Patient Education: Patient Medication Summary Completed 07/06/2011 Appointment: María Elena Appiahtel: [address] [place] [address] BP CHECK 06/06/2011 Patient Education: Patient Medication Summary Completed 06/06/2011 Visit Plan: Add Bystolic at 2.5mg QAM Ad d Robaxin 750mg 2 po q HS BP check in 2wks 05/22/2011 Appointment: María Elena Appiahtel: [address] [place] [address] FOLLOW UP 05/22/2011 Patient Education: Patient Medication Summary Completed 05/22/2011 Appointment: María Elena Appiah WPtel: [address] [place] [address] ER Follow UP 05/09/2011 Patient Education: Patient Medication Summary Completed 05/09/2011 Appointment: María Elena Appiah WPtel: [address] [place] [address] FOLLOW UP 02/22/2011 Visit Plan: Rx written for Hydrocodone 1 0/325mg #240 See Ortho 02/14/2011 Appointment: María Elena Appiah WPtel: [address] [place], [place] [phone] OMT 02/14/2011 Patient Education: Patient Medication Summary [...] lab work. 02/03/2011 Appointment: Lashawn Eckert WPtel: [address] [place] [address] ACUTE ILLNESS 02/03/2011 Patient Education: Patient Medication Summary Completed 02/03/2011 Visit Plan: OMT done Cont daily stretche s 01/31/2011 Appointment: María Elena Appiah WPtel: [address] [place], [place] [phone] ACUTE ILLNESS 01/31/2011 Patient Education: Patient Medication Summary Completed 01/31/2011 Visit Plan: Continue pain meds OMT done Proceed with PT No work this summer 01/25/2011 Appointment: María Elena Appiah WPtel: [address] [place], [place] [phone] ACUTE ILLNESS 01/25/2011 Patient Education: Patient Medication Summary Completed 01/25/2011 Visit Plan: Start PT Long discussion abo ut getting pain meds from only us and can only have max of 4grams of tylenol per day Change to Hydrocodone 10/325mg 1- 2 po TID prn pain--#180 called to Radha 01/18/2011 Appointment: María Elena Appiahtel: [address] [place] [address] FOLLOW UP 01/18/2011 Patient Education: Patient Medication Summary Completed 01/18/2011 Visit Plan: Daily back stretches, moist heat, Biofreeze prn 11/29/2010 Appointment: María Elena Appiahtel: [address] [place] [address] ER Follow UP 11/29/2010 Patient Education: Patient Medication Summary Completed 11/29/2010 Visit Plan: Saline nasal flushes prn. Ty lenol/Motrin prn headache. Notify if persists/symptoms worsening. Finish augmentin Add Medrol Dose Pack 10/10/2010 Appointment: María Elena Appiah WPtel: [address] [place] [address] ACUTE ILLNESS 10/10/2010 Patient Education: Patient Medication Summary Completed 10/10/2010 Visit Plan: Cryotherapy x3 to multiple l esions on both forearms 07/19/2010 Appointment: María Elena Appiahtel: [address] [place] [address] OFFICE SURGERY 07/19/2010 Patient Education: Patient Medication Summary Completed 07/19/2010 Appointment: María Elena Appiah WPtel: [address] [place] [address] BP CHECK 07/06/2010 Patient Education: Patient Medication Summary Completed 07/06/2010 Appointment: María Elena Appiah WPtel: [address] [place] [address] BP CHECK 06/30/2010 Patient Education: Patient Medication Summary Completed 06/30/2010 Appointment: María Elena Appiahtel: [address] [place] [address] BP CHECK 06/20/2010 Patient Education: Patient Medication Summary Completed 06/20/2010 Visit Plan: Change Diovan to Exforge 160 /5mg QD OMT done to thoracics BP check in 2wks 06/07/2010 Appointment: María Elena Appiah WPtel: [address] [place] [address] FOLLOW UP 06/07/2010 Patient Education: Patient Medication Summary Completed 06/07/2010 Appointment: María Elena Appiah WPtel: [address] [place] [address] BP CHECK 06/03/2010 Patient Education: Patient Medication Summary Completed 06/03/2010 Appointment: María Elena Appiah WPtel: [address] [place] [address] BP CHECK 06/01/2010 Patient Education: Patient Medication Summary Completed 06/01/2010 Visit Plan: Irritated skin tags to left neck x2 excised at base with scissors and base cauterized 05/30/2010 Appointment: María Elena Appiah WPtel: [address] [place] [address] OFFICE SURGERY 05/30/2010 Patient Education: Patient Medication Summary Completed 05/30/2010 Visit Plan: Saline nasal flushes prn. Ty lenol/Motrin prn headache. Notify if persists/symptoms worsening. Restart Nasonex Has allergy testing set for May 25 04/27/2010 Appointment: María Elena Appiah WPtel: [address] [place] [address] ACUTE ILLNESS 04/27/2010 Patient Education: Patient Medication Summary Completed 04/27/2010 Visit Plan: Saline nasal flushes prn. Ty lenol/Motrin prn headache. Notify if persists/symptoms worsening. Omnaris BID plus injections 04/05/2010 Appointment: María Elena Appiah WPtel: [address] [place], [place] [phone] ACUTE ILLNESS 04/05/2010 Patient Education: Patient Medication Summary Completed 04/05/2010 Visit Plan: Saline nasal flushes prn. Ty lenol/Motrin prn headache. Notify if persists/symptoms worsening. 03/09/2010 Appointment: María Elena Appiah WPtel: [address] [place] [address] ACUTE ILLNESS 03/09/2010 Patient Education: Patient Medication Summary Completed 03/09/2010 Visit Plan: Cont Clonidine as is Cont Pr emarin Fwup with surgery as scheduled 03/03/2010 Appointment: María Elena Appiah WPtel: [address] [place] [address] FOLLOW UP 03/03/2010 Patient Education: Patient Medication Summary Completed 03/03/2010 Visit Plan: Check Pelvic US now Chelsey Sal C vs Hysterectomy 01/17/2010 Appointment: María Elena Appiah WPtel: [address] [place] [address] ACUTE ILLNESS 01/17/2010 Patient Education: Patient Medication Summary Completed 01/17/2010 Visit Plan: Check fasting lab and schedu le Mammogram 2gm Na Diet Trial of Ambien 10mg qhs Fwup pending lab results 12/27/2009 Appointment: María Elena Appiah WPtel: [address] [place] [address] ESTABLISHED PATIENT 12/27/2009 Patient Education: Patient Medication Summary Completed 12/27/2009 Referral: Canelo Overton WPtel: [address] [id number] [place] Referral Initiated Referral: Philipp Flores WPtel: [address] [id number] [place] Referral Appointment Requested Instructions Comment . [...]
--- OUTSIDE RECORDS SUMMARY | 2020-03-13 08:03 | XMS REPORT | Continuity of Care Document ---
Author Organization Unknown Address Unknown Phone Unavailable Allergies Active Description Code Type Severity Reaction Onset Reported/Identified Relationship to Patient Clinical Status Yes serum dex deficiency serum dex deficie ncy Mild N/A 03/08/2009 Yes Penicillins [id number] Drug Aller gy Mild N/A 06/05/2015 Yes Sulfa (Sulfonamide Antibiotics) [id number] Drug Allergy Mild N/A 5 Yes PSEUDOCHOLINESTERASE PSEUDOCHOLINESTER ASE Unknown N/A 06/05/2015 Yes succinylcholine [id number] D rug Allergy Unknown N/A 06/05/2015 Yes clindamycin [id number] Drug Aller gy Moderate POLYSYSTEMIC AR 08/23/2016 Yes meperidine [id number] Drug Allerg y Moderate N/V 09/28/2016 Medications There is no data. Problems Date Dx Coded Attending Type Code Diagnosis Diagnosed By 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 APRN Ot L03.115 CELLULITIS OF RIGHT LOWER LIMB 11/16/2012 Ot 466.0 ACUT E BRONCHITIS 11/16/2012 Ot 786.2 COUGH 11/30/2012 Ot 724.3 SCIA ELADIA 11/30/2012 Ot 847.2 SPRA IN LUMBAR REGION 11/30/2012 Ot 959.19 OTH INJURY OF OTHER SITES OF TRUNK 11/30/2012 Ot E000.8 OTH ER EXTERNAL CAUSE STATUS 11/30/2012 Ot E849.6 ACC IDENT IN PUBLIC BLDG 11/30/[address]27[address]0 OVE REXERTION FROM SUDDEN STRENUOUS MOVEM 11/30/2012 Ot 724.2 LUMBAGO 11/30/2012 Ot 724.4 LUMB OSACRAL NEURITIS NOS 11/30/2012 Ot 959.19 OTH INJURY OF OTHER SITES OF TRUNK 11/30/2012 Ot E000.8 OTH ER EXTERNAL CAUSE STATUS 11/30/2012 Ot E849.6 ACC IDENT IN PUBLIC BLDG 11/30/2012 Ot E927.0 OVE REXERTION FROM SUDDEN STRENUOUS MOVEM 12/05/2012 Ot 720.2 SACR OILIITIS NEC 12/05/2012 Ot 724.2 LUMBAGO 12/05/2012 Ot 724.4 LUMB OSACRAL NEURITIS NOS 12/01/2013 KEIRA WATKINS [employer]PERVIS[employer]IVITIES Ot 462 ACUTE PHARYNGITIS 12/01/2013 KEIRA WATKINS [employer]PERVIS[employer]IVIT[employer] Ot 490 BRONCHITIS NOS 04/17/2014 KEIRA WATKINS [employer]PERVIS[employer]IVITIES Ot 465 .9 ACUTE URI NOS 02/28/2015 SAMUEL LANDRY Ot 692.9 DERMATITIS NOS 02/28/2015 SAMUEL LANDRY Ot 782.1 NONSPECIF SKIN ERUPT NEC 05/10/2015 GRACIE SHAFER, GRISELDA Coffey Ot 722. 52 LUMB/LUMBOSAC DISC DEGEN 06/05/2015 SAMUEL LANDRY Ot 461.0 AC MAXILLARY SINUSITIS 06/05/2015 SAMUEL LANDRY Ot 466.0 ACUTE BRONCHITIS 06/05/2015 SAMUEL LANDRY Ot 786.2 COUGH 11/07/2015 MOHSEN SHAFER, DEREJE Cruz Ot G89.29 OTHER CHRONIC PAIN 11/07/2015 MOHSEN SHAFER, DEREJE Cruz Ot M54.5 LOW BACK PAIN 11/07/2015 SEAMUSNDER DO, MARÍA ELENA S Ot I10 11/07/2015 SEAMUSNDVICTORINO DO, MARÍA ELENA S Ot R01.1 11/07/2015 SEAMUSNDER DO, MARÍA ELENA S Ot Z12.31 11/07/2015 SEAMUSNDER DO, MARÍA ELENA S Ot R92.8 11/10/2015 SEAMUSNDER DO, MARÍA ELENA S Ot I10 11/10/2015 SEAMUSNDER DO, MARÍA ELENA S Ot R01.1 11/10/2015 SEAMUSNDER DO, MARÍA ELENA S Ot Z12.31 11/10/2015 SEAMUSNDER DO, MARÍA ELENA S Ot R92.8 11/15/2015 SEAMUSNDER DO, MARÍA ELENA S Ot I10 11/15/2015 SEAMUSNDER DO, MARÍA ELENA S Ot R01.1 11/15/2015 SEAMUSNDER DO, MARÍA ELENA S Ot Z12.31 11/18/2015 SEAMUSNDER DOKYLAHMARÍA ELENA S Ot R92.8 12/01/2015 ORENDER DO, MARÍA ELENA S Ot N60.32 12/01/2015 [facility] S Ot R92.1 12/12/2015 Ot G43.909 JONYN JONES, UNSP, NOT INTRACTABLE, WITHOUT 12/13/2015 Ot G43.909 12/14/2015 [facility]A ELE[facility] S Ot N60.32 12/14/2015 [facility]A ELE[facility] S Ot R92.1 03/23/2016 ALIYA DO, EMETERIO Longoria Ot K52.9 NONINFECTIVE GASTROENTERITIS AND COLITIS 03/23/2016 ALIYA DO, EMETERIO Longoria Ot R11.2 NAUSEA WITH VOMITING, UNSPECIFIED 03/24/2016 ALIYA DO, EMETERIO Swati Ot K52.9 NONINFECTIVE GASTROENTERITIS AND COLITIS 03/24/2016 ALIYA DO, EMETERIO Swati Ot R11.2 NAUSEA WITH VOMITING, UNSPECIFIED 03/24/2016 EDDIE DO, HORTENCIA K Ot K52.9 NONINFECTIVE GASTROENTERITIS AND COLITIS 03/24/2016 EDDIE DO, HORTENCIA K Ot K57.30 DVRTCLOS OF LG INT W/O PERFORATION OR AB 03/24/2016 EDDIE DO, HORTENCIA K Ot N39.0 URINARY TRACT INFECTION, SITE NOT SPECIF 03/24/2016 EDDIE DO, HORTENCIA K Ot R11.0 NAUSEA 03/27/2016 EDDIE DO, HORTENCIA K Ot K52.9 NONINFECTIVE GASTROENTERITIS AND COLITIS 03/27/2016 EDDIE DO, HORTENCIA K Ot K57.30 DVRTCLOS OF LG INT W/O PERFORATION OR AB 03/27/2016 EDDIE DO, HORTENCIA K Ot N39.0 URINARY TRACT INFECTION, SITE NOT SPECIF 03/27/2016 EDDIE DO, HORTENCIA K Ot R11.0 NAUSEA 04/14/2016 EDDIE DO, HORTENCIA K Ot K52.9 NONINFECTIVE GASTROENTERITIS AND COLITIS 04/14/2016 EDDIE DO, HORTENCIA K Ot K57.30 DVRTCLOS OF LG INT W/O PERFORATION OR AB 04/14/2016 EDDIE DO, HORTENCIA K Ot N39.0 URINARY TRACT INFECTION, SITE NOT SPECIF 04/14/2016 EDDIE DO, HORTENCIA K Ot R11.0 NAUSEA 08/23/2016 [facility] MARÍA ELENA S Ot I10 ESSENTIAL (PRIMARY) HYPERTENSION 08/23/2016 MARÍA ELENA APPIAH DO Ot R01.1 CARDIAC MURMUR, UNSPECIFIED 08/23/2016 MARÍA ELENA APPIAH DO Ot Z12.31 ENCNTR SCREEN MAMMOGRAM FOR MALIGNANT NE 08/23/2016 MARÍA ELENA APPIAH DO Ot R92.8 OTH ABN AND INCONCLUSIVE FINDINGS ON DX 08/23/2016 MARÍA ELENA APPIAH DO Ot N60.32 FIBROSCLEROSIS OF LEFT BREAST 08/23/2016 MARÍA ELENA APPIAH DO Ot R92.1 MAMMOGRAPHIC CALCIFCN FOUND ON DIAGNOSTI 08/23/2016 FLORY SHAFER, BEKAH M Ot C44.629 SQUAMOUS CELL CARCINOMA SKIN/ LEFT UPPER 08/23/2016 FLORY SHAFER, BEKAH Russo Ot Z01.818 ENCOUNTER FOR OTHER PREPROCEDURAL EXAMIN 08/23/2016 BEKAH RUTH MD Ot Z11.2 ENCOUNTER FOR SCREENING FOR OTHER BACTER 08/24/2016 FLORY SHAFER, BEKAH M Ot C44.629 SQUAMOUS CELL CARCINOMA SKIN/ LEFT UPPER 08/24/2016 FLORY SHAFER, BEKAH M Ot Z01.818 ENCOUNTER FOR OTHER PREPROCEDURAL EXAMIN 08/24/2016 FLORY SHAFER, BEKAH M Ot Z11.2 ENCOUNTER FOR SCREENING FOR OTHER BACTER 08/25/2016 FLORY SHAFER, BEKAH M Ot C44.629 SQUAMOUS CELL CARCINOMA SKIN/ LEFT UPPER 08/28/2016 FLORY SHAFER, BEKAH Russo Ot C44.629 SQUAMOUS CELL CARCINOMA SKIN/ LEFT UPPER 09/28/2016 FLORY SHAFER, BEKAH Russo Ot L98.9 DISORDER OF THE SKIN AND SUBCUTANEOUS TI 09/28/2016 FLORY SHAFER, BEKAH M Ot Z01.818 ENCOUNTER FOR OTHER PREPROCEDURAL EXAMIN 09/29/2016 BEKAH RUTH MD Ot L98.9 DISORDER OF THE SKIN AND SUBCUTANEOUS TI 09/29/2016 BEKAH RUTH MD M Ot Z01.818 ENCOUNTER FOR OTHER PREPROCEDURAL EXAMIN 10/04/2016 BEKAH RUTH MD Ot I1 0 ESSENTIAL (PRIMARY) HYPERTENSION 10/04/2016 FLORY SHAFER, BEKAH M Ot L43.9 LICHEN PLANUS, UNSPECIFIED 10/04/2016 FLORY SHAFER, BEKAH Russo Ot L57.0 ACTINIC KERATOSIS 10/04/2016 BEKAH RUTH MD Ot L90.5 SCAR CONDITIONS AND FIBROSIS OF SKIN 10/04/2016 BEKAH RUTH MD Ot Z11.2 ENCOUNTER FOR SCREENING FOR OTHER BACTER 10/05/2016 BEKAH RUTH MD Ot L98.9 DISORDER OF THE SKIN AND SUBCUTANEOUS TI 10/05/2016 BEKAH RUTH MD Ot Z01.818 ENCOUNTER FOR OTHER PREPROCEDURAL EXAMIN 10/06/2016 BEKAH RUTH MD Ot I1 0 ESSENTIAL (PRIMARY) HYPERTENSION 10/06/2016 BEKAH RUTH MD Ot L43.9 LICHEN PLANUS, UNSPECIFIED 10/06/2016 BEKAH RUTH MD Ot L57.0 ACTINIC KERATOSIS 10/06/2016 BEKAH RUTH MD Ot L90.5 SCAR CONDITIONS AND FIBROSIS OF SKIN 10/06/2016 BEKAH RUTH MD Ot Z11.2 ENCOUNTER FOR SCREENING FOR OTHER BACTER 10/26/2016 BEKAH RUTH MD Ot Z01.818 ENCOUNTER FOR OTHER PREPROCEDURAL EXAMIN 10/26/2016 BEKAH RUTH MD Ot Z12.11 ENCOUNTER FOR SCREENING FOR MALIGNANT NE 10/27/2016 BEKAH RUTH MD Ot Z01.818 ENCOUNTER FOR OTHER PREPROCEDURAL EXAMIN 10/27/2016 BEKAH RUTH MD Ot Z12.11 ENCOUNTER FOR SCREENING FOR MALIGNANT NE 10/30/2016 BEKAH RUTH MD Ot K57.30 DVRTCLOS OF LG INT W/O PERFORATION OR AB 10/30/2016 BEKAH RUTH MD Ot Z12.11 ENCOUNTER FOR SCREENING FOR MALIGNANT NE 10/31/2016 BEKAH RUTH MD Ot K57.30 DVRTCLOS OF LG INT W/O PERFORATION OR AB 10/31/2016 BEKAH RUTH MD Ot Z12.11 ENCOUNTER FOR SCREENING FOR MALIGNANT NE 11/16/2016 MARÍA ELENA APPIAH DO S Ot I87.2 VENOUS INSUFFICIENCY (CHRONIC) (PERIPHER 11/29/2016 MARÍA ELENA APPIAH DO S Ot I87.2 VENOUS INSUFFICIENCY (CHRONIC) (PERIPHER 12/19/2016 GABY CHANDLER Ot M79.604 PAIN IN RIGHT LEG 12/29/2016 GABY CHANDLERP Ot M79.604 PAIN IN RIGHT LEG 01/17/2017 ORENDER DO, MARÍA ELENA S Ot Z12.31 ENCNTR SCREEN MAMMOGRAM FOR MALIGNANT NE 10/09/2017 ORENDER DO, MARÍA ELENA S Ot I10 ESSENTIAL (PRIMARY) HYPERTENSION 10/09/2017 ORENDER DO, MARÍA ELENA S Ot R01.1 CARDIAC MURMUR, UNSPECIFIED 10/09/2017 ORENDER DO, MARÍA ELENA S Ot Z12.31 ENCNTR SCREEN MAMMOGRAM FOR MALIGNANT NE 10/09/2017 ORENDER DO, MARÍA ELENA S Ot R92.8 OTH ABN AND INCONCLUSIVE FINDINGS ON DX 10/09/2017 ORENDER DO, MARÍA ELENA S Ot N60.32 FIBROSCLEROSIS OF LEFT BREAST 10/09/2017 ORENDER DO, MARÍA ELENA S Ot R92.1 MAMMOGRAPHIC CALCIFCN FOUND ON DIAGNOSTI 10/09/2017 ORENDER DO, MARÍA ELENA S Ot Z12.31 ENCNTR SCREEN MAMMOGRAM FOR MALIGNANT NE 10/09/2017 ORENDER DO, MARÍA ELENA S Ot I87.2 VENOUS INSUFFICIENCY (CHRONIC) (PERIPHER 10/09/2017 GABY CHANDLER [facility] Ot M79.604 PAIN IN RIGHT LEG 10/15/2017 JOSE ANGELKATHLEEN PRADO R SUPERVISOR LENDING ACTIVITIES Ot 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 10/15/2017 JOSE ANGEL KATHLEEN R SUPERVISOR [employer]ENDING ACTIVITIES Ot G47.00 INSOMNIA, UNSPECIFIED 10/15/2017 JOSE ANGEL, KATHLEEN R SUPERVISOR LENDING ACTIVITIES Ot G47.10 HYPERSOMNIA, UNSPECIFIED 10/15/2017 JOSE ANGEL KATHLEEN R SUPERVISOR LENDING ACTIVITIES Ot G47.52 REM SLEEP BEHAVIOR DISORDER 10/15/2017 JOSE ANGEL KATHLEEN R SUPERVISOR LENDING ACTIVITIES Ot G47.61 PERIODIC LIMB MOVEMENT DISORDER 10/15/2017 JOSE ANGEL, KATHLEEN R SUPERVISOR LENDING ACTIVITIES Ot R06.83 SNORING 10/15/2017 JOSE ANGEL KATHLEEN R SUPERVISOR LENDING ACTIVITIES Ot R51 HEADACHE 10/16/2017 JOSE ANGEL, KATHLEEN R SUPERVISOR LENDING ACTIVITIES Ot 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 10/16/2017 JOSE ANGEL, KATHLEEN R SUPERVISOR LENDING ACTIVITIES Ot G47.00 INSOMNIA, UNSPECIFIED 10/16/2017 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 SUPERVISOR LENDING ACTIVITIES Ot G47.10 HYPERSOMNIA, UNSPECIFIED 10/16/2017 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 R SUPERVISOR LENDING ACTIVITIES Ot G47.52 REM SLEEP BEHAVIOR DISORDER 10/16/2017 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 SUPERVISOR LENDING ACTIVITIES Ot G47.61 PERIODIC LIMB MOVEMENT DISORDER 10/16/2017 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 SUPERVISOR LENDING ACTIVITIES Ot R06.83 SNORING 10/16/2017 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 SUPERVISOR LENDING ACTIVITIES Ot R51 HEADACHE 11/26/2017 Ot 722.10 LUM BAR DISC DISPLACEMENT 11/26/2017 ORENDER DO, MARÍA ELENA S Ot 240.9 GOITER NOS 11/26/2017 ORENDER DO, MARÍA ELENA S Ot 723.1 CERVICALGIA 11/26/2017 ORENDER DO, MARÍA ELENA S Ot 784.0 HEADACHE 01/01/2018 SEAMUSNDER DO, MARÍA ELENA S Ot G47.33 OBSTRUCTIVE SLEEP APNEA (ADULT) (PEDIATR 01/01/2018 SEAMUSNDER DO, MARÍA ELENA S Ot G47.33 OBSTRUCTIVE SLEEP APNEA (ADULT) (PEDIATR 03/10/2018 KEIRA WATKINS APRN Ot F41 .9 ANXIETY DISORDER, UNSPECIFIED 03/10/2018 KEIRA WATKINS APRN Ot G43.909 MIGRAINE, UNSP, NOT INTRACTABLE, WITHOUT 03/10/2018 KEIRA WATKINS APRN Ot I10 ESSENTIAL (PRIMARY) HYPERTENSION 03/10/2018 KEIRA WATKINS APRN Ot L08 .9 LOCAL INFECTION OF THE SKIN AND SUBCUTAN 03/10/2018 KEIRA WATKINS APRN Ot L13 .9 BULLOUS DISORDER, UNSPECIFIED 03/10/2018 KEIRA WATKINS APRN Ot M10 .9 GOUT, UNSPECIFIED 03/10/2018 KEIRA WATKINS APRN Ot Z87.01 PERSONAL HISTORY OF PNEUMONIA (RECURRENT 03/10/2018 KEIRA WATKINS APRN Ot Z88 .0 ALLERGY STATUS TO PENICILLIN 03/10/2018 KEIRA WATKINS APRN Ot Z88 .1 ALLERGY STATUS TO OTHER ANTIBIOTIC AGENT 03/10/2018 KEIRA WATKINS APRN Ot Z88 .2 ALLERGY STATUS TO SULFONAMIDES STATUS 03/10/2018 KEIRA WATKINS APRN Ot Z88 .8 ALLERGY STATUS TO OTH DRUG/MEDS/BIOL SUB 03/10/2018 KEIRA WATKINS APRN, Ot Z90.49 ACQUIRED ABSENCE OF OTHER SPECIFIED PART 03/10/2018 KEIRA WATKINS APRN Ot Z90.710 ACQUIRED ABSENCE OF BOTH CERVIX AND UTER 03/10/2018 KEIRA WATKINS APRN Ot Z90.89 ACQUIRED ABSENCE OF OTHER ORGANS 03/11/2018 PAULINA JAMES MD Ot F41. 9 ANXIETY DISORDER, UNSPECIFIED 03/11/2018 PAULINA JAMES MD Ot G43.909 MIGRAINE, UNSP, NOT INTRACTABLE, WITHOUT 03/11/2018 PAULINA JAMES MD Ot G47. 9 SLEEP DISORDER, UNSPECIFIED 03/11/2018 PAULINA JAMES MD Ot I10 ESSENTIAL (PRIMARY) HYPERTENSION 03/11/2018 PAULINA JAMES MD Ot L03.115 CELLULITIS OF RIGHT LOWER LIMB 03/11/2018 PAULINA JAMES MD Ot M10. 9 GOUT, UNSPECIFIED 03/11/2018 PAULINA JAMES MD Ot M25.572 PAIN IN LEFT ANKLE AND JOINTS OF LEFT FO 03/11/2018 PAULINA JAMES MD Ot Z85.828 PERSONAL HISTORY OF OTHER MALIGNANT NEOP 03/11/2018 PAULINA JAMES MD Ot Z88. 0 ALLERGY STATUS TO PENICILLIN 03/11/2018 PAULINA JAMES MD Ot Z88. 1 ALLERGY STATUS TO OTHER ANTIBIOTIC AGENT 03/11/2018 PAULINA JAMES MD Ot Z88. 2 ALLERGY STATUS TO SULFONAMIDES STATUS 03/11/2018 PAULINA JAMES MD Ot Z88. 8 ALLERGY STATUS TO OTH DRUG/MEDS/BIOL SUB 03/11/2018 PAULINA JAMES MD Ot Z90.710 ACQUIRED ABSENCE OF BOTH CERVIX AND UTER 03/11/2018 PAULINA JAMES MD Ot Z90. 89 ACQUIRED ABSENCE OF OTHER ORGANS 03/11/2018 PAULINA JAMES MD Ot Z98.890 OTHER SPECIFIED POSTPROCEDURAL STATES 03/12/2018 KEIRA WATKINS APRN Ot F41 .9 ANXIETY DISORDER, UNSPECIFIED 03/12/2018 KEIRA WATKINS APRN Ot G43.909 MIGRAINE, UNSP, NOT INTRACTABLE, WITHOUT 03/12/2018 KEIRA WATKINS APRN Ot I10 ESSENTIAL (PRIMARY) HYPERTENSION 03/12/2018 KEIRA WATKINS APRN Ot L08 .9 LOCAL INFECTION OF THE SKIN AND SUBCUTAN 03/12/2018 KEIRA WATKINS APRN Ot L13 .9 BULLOUS DISORDER, UNSPECIFIED 03/12/2018 KEIRA WATKINS APRN Ot M10 .9 GOUT, UNSPECIFIED 03/12/2018 KEIRA WATKINS APRN Ot Z87.01 PERSONAL HISTORY OF PNEUMONIA (RECURRENT 03/12/2018 KEIRA WATKINS APRN Ot Z88 .0 ALLERGY STATUS TO PENICILLIN 03/12/2018 KEIRA WATKINS APRN Ot Z88 .1 ALLERGY STATUS TO OTHER ANTIBIOTIC AGENT 03/12/2018 KEIRA WATKINS APRN Ot Z88 .2 ALLERGY STATUS TO SULFONAMIDES STATUS 03/12/2018 KEIRA WATKINS APRN Ot Z88 .8 ALLERGY STATUS TO OTH DRUG/MEDS/BIOL SUB 03/12/2018 KEIRA WATKINS APRN Ot Z90.49 ACQUIRED ABSENCE OF OTHER SPECIFIED PART 03/12/2018 KEIRA WATKNIS APRN Ot Z90.710 ACQUIRED ABSENCE OF BOTH CERVIX AND UTER 03/12/2018 KEIRA WATKINS APRN Ot Z90.89 ACQUIRED ABSENCE OF OTHER ORGANS 03/16/2018 KEIRA WATKINS APRN Ot F41 .9 ANXIETY DISORDER, UNSPECIFIED 03/16/2018 KEIRA WATKINS APRN Ot G43.909 MIGRAINE, UNSP, NOT INTRACTABLE, WITHOUT 03/16/2018 KEIRA WATKINS APRN Ot I10 ESSENTIAL (PRIMARY) HYPERTENSION 03/16/2018 KEIRA WATKINS APRN Ot L08 .9 LOCAL INFECTION OF THE SKIN AND SUBCUTAN 03/16/2018 KEIRA WATKINS APRN Ot L13 .9 BULLOUS DISORDER, UNSPECIFIED 03/16/2018 KEIRA WATKINS APRN Ot M10 .9 GOUT, UNSPECIFIED 03/16/2018 KEIRA WATKINS APRN Ot Z87.01 PERSONAL HISTORY OF PNEUMONIA (RECURRENT 03/16/2018 KEIRA WATKINS APRN Ot Z88 .0 ALLERGY STATUS TO PENICILLIN 03/16/2018 KEIRA WATKINS APRN Ot Z88 .1 ALLERGY STATUS TO OTHER ANTIBIOTIC AGENT 03/16/2018 KEIRA WATKINS APRN Ot Z88 .2 ALLERGY STATUS TO SULFONAMIDES STATUS 03/16/2018 KEIRA WATKINS APRN Ot Z88 .8 ALLERGY STATUS TO OTH DRUG/MEDS/BIOL SUB 03/16/2018 KEIRA WATKINS APRN Ot Z90.49 ACQUIRED ABSENCE OF OTHER SPECIFIED PART 03/16/2018 KEIRA WATKINS APRN Ot Z90.710 ACQUIRED ABSENCE OF BOTH CERVIX AND UTER 03/16/2018 KEIRA WATKINS APRN Ot Z90.89 ACQUIRED ABSENCE OF OTHER ORGANS 03/22/2018 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 SUPERVISOR [employer]ENDING ACTIVITIES Ot L03.115 CELLULITIS OF RIGHT LOWER LIMB 03/22/2018 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 APRN Ot L03.115 CELLULITIS OF RIGHT LOWER LIMB 04/01/2018 LIA BHANDARI MD Ot E11.621 TYPE 2 DIABETES MELLITUS WITH FOOT ULCER 04/01/2018 LIA BHANDARI MD, Ot L97.322 NON-PRESSURE CHRONIC ULCER OF LEFT ANKLE 04/01/2018 LIA BHANDARI MD, Ot L97.412 NON-PRS CHR ULCER OF RIGHT HEEL AND MIDF 04/01/2018 LIA BHANDARI MD, Ot E11.621 TYPE 2 DIABETES MELLITUS WITH FOOT ULCER 04/01/2018 LIA BHANDARI MD, Ot L97.412 NON-PRS CHR ULCER OF RIGHT HEEL AND MIDF 04/03/2018 LIA BHANDARI MD, Ot E11.621 TYPE 2 DIABETES MELLITUS WITH FOOT ULCER 04/03/2018 LIA BHANDARI MD Ot L97.322 NON-PRESSURE CHRONIC ULCER OF LEFT ANKLE 04/03/2018 LIA BHANDARI MD Ot L97.412 NON-PRS CHR ULCER OF RIGHT HEEL AND MIDF 06/17/2018 MARÍA ELENA APPIAH DO S Ot 240.9 GOITER NOS 06/17/2018 MARÍA ELENA APPIAH DO S Ot 723.1 CERVICALGIA 06/17/2018 MARÍA ELENA APPIAH DO S Ot 784.0 HEADACHE 07/25/2018 LIA BHANDARI MD, Ot E11.621 TYPE 2 DIABETES MELLITUS WITH FOOT ULCER 07/25/2018 LIA BHANDARI MD, Ot L97.322 NON-PRESSURE CHRONIC ULCER OF LEFT ANKLE 07/25/2018 LIA BHANDARI MD Ot L97.412 NON-PRS CHR ULCER OF RIGHT HEEL AND MIDF 02/08/2019 GAMALIEL WHITLOCK MD Ot F41.9 ANXIETY DISORDER, UNSPECIFIED 02/08/2019 GAMALIEL WHITLOCK MD Ot G43.909 MIGRAINE, UNSP, NOT INTRACTABLE, WITHOUT 02/08/2019 GAMALIEL WHITLOCK MD Ot I10 ESSENTIAL (PRIMARY) HYPERTENSION 02/08/2019 GAMALIEL WHITLOCK MD Ot J01.90 ACUTE SINUSITIS, UNSPECIFIED 02/08/2019 GAMALIEL WHITLOCK MD Ot J02.9 ACUTE PHARYNGITIS, UNSPECIFIED 02/08/2019 GAMALIEL WHITLOCK MD Ot J20.9 ACUTE BRONCHITIS, UNSPECIFIED 02/08/2019 GAMALIEL WHITLOCK MD, Ot M10.9 GOUT, UNSPECIFIED 02/08/2019 GAMALIEL WHITLOCK MD Ot Z82.49 FAMILY HX OF ISCHEM HEART DIS AND OTH DI 02/08/2019 GAMALIEL WHITLOCK MD Ot Z85.828 PERSONAL HISTORY OF OTHER MALIGNANT NEOP 02/08/2019 GAMALIEL WHITLOCK MD Ot Z87.01 PERSONAL HISTORY OF PNEUMONIA (RECURRENT 02/08/2019 GAMALIEL WHITLOCK MD Ot Z88.0 ALLERGY STATUS TO PENICILLIN 02/08/2019 GAMALIEL WHITLOCK MD Ot Z88.1 ALLERGY STATUS TO OTHER ANTIBIOTIC AGENT 02/08/2019 GAMALIEL WHITLOCK MD Ot Z88.2 ALLERGY STATUS TO SULFONAMIDES STATUS 02/08/2019 GAMALIEL WHITLOCK MD Ot Z88.8 ALLERGY STATUS TO OT DRUG/MEDS/BIOL SUB 02/08/2019 GAMALIEL WHITLOCK MD Ot Z90.710 ACQUIRED ABSENCE OF BOTH CERVIX AND UTER 02/08/2019 GAMALIEL WHITLOCK MD Ot Z90.89 ACQUIRED ABSENCE OF OTHER ORGANS 02/08/2019 GAMALIEL WHITLOCK MD Ot Z98.890 OTHER SPECIFIED POSTPROCEDURAL STATES 05/19/2019 SATURNINO BARKER Ot F41.9 ANXIETY DISORDER, UNSPECIFIED 05/19/2019 SATURNINO BARKER Ot G43.909 MIGRAINE, UNSP, NOT INTRACTABLE, WITHOUT 05/19/2019 SATURNINO BARKER Ot I10 ESSENTIAL (PRIMARY) HYPERTENSION 05/19/2019 SATURNINO BARKER Ot R40.2142 COMA SCALE, EYES OPEN, SPONTANEOUS, EMR 05/19/2019 SATURNINO BARKER Ot R40.2252 COMA SCALE, BEST VERBAL RESPONSE, ORIENT 05/19/2019 SATURNINO BARKER Ot R40.2362 COMA SCALE, BEST MOTOR RESPONSE, OBEYS C 05/19/2019 SATURNINO BARKER Ot S09.90XA UNSPECIFIED INJURY OF HEAD, INITIAL ENCO 05/19/2019 SATURNINO BARKER Ot W01.190A FALL SAME LEV FROM SLIP/TRIP W STRIKE AG 05/19/2019 SATURNINO BARKER Ot Z79.52 WOOD REPATCHER (CURRENT) USE OF SYSTEMIC STER 05/19/2019 SATURNINO BARKER Ot Z82.49 FAMILY HX OF ISCHEM HEART DIS AND OTH DI 05/19/2019 SATURNINO BARKER Ot Z85.828 PERSONAL HISTORY OF OTHER MALIGNANT NEOP 05/19/2019 SATURNINO BARKER Ot Z86.018 PERSONAL HISTORY OF OTHER BENIGN NEOPLAS 05/19/2019 SATURNINO BARKER Ot Z87.01 PERSONAL HISTORY OF PNEUMONIA (RECURRENT 05/19/2019 SATURNINO BARKER Ot Z88.0 ALLERGY STATUS TO PENICILLIN 05/19/2019 XAVIER BARKERIS Ot Z88.1 ALLERGY STATUS TO OTHER ANTIBIOTIC AGENT 05/19/2019 SATURNINO BARKER Ot Z88.2 ALLERGY STATUS TO SULFONAMIDES STATUS 05/19/2019 SATURNINO BARKER Ot Z88.6 ALLERGY STATUS TO ANALGESIC AGENT STATUS 05/19/2019 SATURNINO BARKER Ot Z90.710 ACQUIRED ABSENCE OF BOTH CERVIX AND UTER 05/19/2019 SATURNINO BARKER Ot Z90.89 ACQUIRED ABSENCE OF OTHER ORGANS 05/23/2019 SATURNINO BARKER Ot F41.9 ANXIETY DISORDER, UNSPECIFIED 05/23/2019 SATURNINO BARKER Ot G43.909 MIGRAINE, UNSP, NOT INTRACTABLE, WITHOUT 05/23/2019 SATURNINO BARKER Ot I10 ESSENTIAL (PRIMARY) HYPERTENSION 05/23/2019 SATURNINO BARKER Ot R40.2142 COMA SCALE, EYES OPEN, SPONTANEOUS, EMR 05/23/2019 SATURNINO BARKER Ot R40.2252 COMA SCALE, BEST VERBAL RESPONSE, ORIENT 05/23/2019 SATURNINO BAREKR Ot R40.2362 COMA SCALE, BEST MOTOR RESPONSE, OBEYS C 05/23/2019 SATURNINO BARKER Ot S09.90XA UNSPECIFIED INJURY OF HEAD, INITIAL ENCO 05/23/2019 SATURNINO BARKER Ot W01.190A FALL SAME LEV FROM SLIP/TRIP W STRIKE AG 05/23/2019 SATURNINO BARKER Ot Z79.52 WOOD REPATCHER (CURRENT) USE OF SYSTEMIC STER 05/23/2019 SATURNINO BARKER Ot Z82.49 FAMILY HX OF ISCHEM HEART DIS AND OTH DI 05/23/2019 SATURNINO BARKER Ot Z85.828 PERSONAL HISTORY OF OTHER MALIGNANT NEOP 05/23/2019 SATURNINO BARKER Ot Z86.018 PERSONAL HISTORY OF OTHER BENIGN NEOPLAS 05/23/2019 SATURNINO BARKER Ot Z87.01 PERSONAL HISTORY OF PNEUMONIA (RECURRENT 05/23/2019 SATURNINO BARKER Ot Z88.0 ALLERGY STATUS TO PENICILLIN 05/23/2019 SATURNINO BARKER Ot Z88.1 ALLERGY STATUS TO OTHER ANTIBIOTIC AGENT 05/23/2019 SATURNINO BARKER Ot Z88.2 ALLERGY STATUS TO SULFONAMIDES STATUS 05/23/2019 SATURNINO BARKER Ot Z88.6 ALLERGY STATUS TO ANALGESIC AGENT STATUS 05/23/2019 SATURNINO BARKER Ot Z90.710 ACQUIRED ABSENCE OF BOTH CERVIX AND UTER 05/23/2019 SATURNINO BARKER Ot Z90.89 ACQUIRED ABSENCE OF OTHER ORGANS 11/07/2019 W E11.65 DM w/o complication type II, uncontrolled Orender, María Elena S. 11/07/2019 W E78.1 Hypertriglyceridemia Seamusnder, María Elena S. 11/07/2019 W I10 Essent ial hypertension Seamusnder, María Elena S. 11/07/2019 W E11.65 Typ e 2 diabetes mellitus with hyperglycemia Jose Angel, Kathleen 11/07/2019 W L60.0 Ingr owing nail Jose Angel, Kathleen 11/07/2019 W E78.2 Mixe d hyperlipidemia Orender, María Elena S. 11/07/2019 W I10 Essent ial (primary) hypertension Orender, María Elena S. 11/07/2019 W M54.2 Cerv icalgia Orender, María Elena S. 11/07/2019 W R73.9 Hype rglycemia, unspecified Orender, María Elena S. 11/20/2019 W E11.65 Typ e 2 diabetes mellitus with hyperglycemia Orender, María Elena S. 11/20/2019 W E11.65 Typ e 2 diabetes mellitus with hyperglycemia Orender, María Elena S. 01/13/2020 W E11.65 Typ e 2 diabetes mellitus with hyperglycemia Orender, María Elena S. 01/13/2020 W I10 Essent ial (primary) hypertension Orender, María Elena S. 01/13/2020 W J30.9 Gary rgic rhinitis Orender, María Elena S. 01/13/2020 W E11.65 Typ e 2 diabetes mellitus with hyperglycemia Orender, María Elena S. 01/13/2020 W I10 Essent ial (primary) hypertension Orender, María Elena S. 01/13/2020 W J30.9 Gary rgic rhinitis Orender, María Elena S. 02/13/2020 W E11.65 Typ e 2 diabetes mellitus with hyperglycemia Jose Angel, Kathleen 02/13/2020 W R60.0 Lowe r extremity edema Jose Angel, Kathleen 02/13/2020 W S90.821A B aime (nonthermal), right foot, initial encounter Jose Angel, Kathleen 02/13/2020 W E11.65 Typ e 2 diabetes mellitus with hyperglycemia Jose Angel, Kathleen 02/13/2020 W R60.0 Lowe r extremity edema Jose Angel, Kathleen 02/13/2020 W S90.821A B aime (nonthermal), right foot, initial encounter Jose Angel, Kathleen 02/13/2020 W E11.65 Typ e 2 diabetes mellitus with hyperglycemia Jose Angel, Kathleen 02/13/2020 W R60.0 Lowe r extremity edema Jose Angel, Kathleen 02/13/2020 W S90.821A B aime (nonthermal), right foot, initial encounter Jose Angel, Kathleen 02/16/2020 W E11.65 Typ e 2 diabetes mellitus with hyperglycemia Jose Angel, Kathleen 02/16/2020 W R60.0 Lowe r extremity edema Jose Angel, Kathleen 02/16/2020 W S90.821A B aime (nonthermal), right foot, initial encounter Jose Angel, Kathleen 03/04/2020 W L03.116 Ce llulitis of left foot Orender, María Elena S. 03/04/2020 W L03.116 Ce llulitis of left foot Orender, María Elena S. Procedures There is no data. Results Test Result Range Methicillin resistant Staphylococcus aur eus (MRSA) screening culture - 08/23/16 11:30 Methicillin resistant Staphylococcus aureus (MRSA) scr eening culture NEG NRG Methicillin resistant Staphylococcus aur eus (MRSA) screening culture - 10/04/16 08:35 Methicillin resistant Staphylococcus aureus (MRSA) scr eening culture NEG NRG Gram stain microscopy - 03/10/18 19:26 GRAM STAIN RESULT NO WBC'S OR BACTERIA OBSERVED NRG Bacteria identification in wound by cult ure - 03/10/18 19:26 Bacteria identification in wound by culture [id number] NRG QUANTITY OF GROWTH Scant Growth NRG Serum or plasma fasting glucose measurem ent (mass/volume) - 03/25/18 10:35 Serum or plasma fasting glucose measurement (mass/volu me) 133 mg/dL 70-105 Capillary blood glucose measurement by g lucometer (mass/volume) - 03/29/18 08:59 Capillary blood glucose measurement by glucometer (mas s/volume) 131 mg/dL 70-110 Hemoglobin A1c - 03/29/18 09:33 Blood hemoglobin A1C measurement (mass/volume) 7.1 % 4.0-5.6 MEAN BLOOD GLUCOSE 157 % <=126 Encounters ACCT No. Visit Date/Time Discharge Status Pt. Type Provider Facility Loc./Unit Complaint [id number] 12/09/2018 10:40:00 12/09/2018 23:59: 59 CLS Outpatient ERICA SAMAYOA [facility] 11/201709/19/2019 09:04:44 09/19/2019 23:59: 59 CLS Outpatient María Elena [place] [id number] 09/30/2019 14:47:00 Document Registration [id number] 05/19/2019 17:07:00 019 19:03:00 DIS Emergency SATURNINO BARKER [facility] ER FALL - HIT HEAD [id number] 02/08/2019 09:22:00 019 10:08:00 DIS Emergency GAMALIEL WHITLOCK MD [facility] ER SORE THROAT / P AIN IN BOTH EARS [id number] 06/10/2018 00:14:00 018 23:59:59 CLS Preadmit 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 APRN [facility] CELLULITIS RIGH T FOOT [id number] 06/10/2018 00:13:00 018 23:59:59 CLS Preadmit 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 [facility] CELLULITIS RIGH T FOOT [id number] 03/19/2018 15:07:00 018 00:01:00 DIS Outpatient 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 SUPERVISOR LENDING ACTIVITIES [facility] CELLULITIS RIGH T FOOT [id number] 03/17/2018 08:47:00 018 00:01:00 DIS Outpatient 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 SUPERVISOR LENDING ACTIVITIES [facility] CELLULITIS RIGH T FOOT [id number] 03/29/2018 09:23:00 018 23:59:59 CLS Outpatient LIA BHANDARI MD [facility] LAB TYPE 2 DIABETES MELLITU S WITH FOOT ULCER [id number] 03/29/2018 08:36:00 018 23:59:59 CLS Outpatient LIA BHANDARI MD [facility] WOUNDCARE [id number] 03/25/2018 10:22:00 018 23:59:59 CLS Outpatient LIA BHANDARI MD [facility] LAB TYPE 2 DIABETES, NON ID ESSURE CHRONIC ULCER OF LEF [id number] 03/22/2018 08:57:00 018 23:59:59 CLS Outpatient LIA BHANDARI MD [facility] WOUNDCARE [id number] 03/21/2018 15:35:00 018 06:23:00 DIS Outpatient 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 APRN [facility] CELLULITIS RIGH T FOOT [id number] 03/11/2018 18:31:00 018 19:22:00 DIS Emergency PAULINA JAMES MD [facility] ER SPIDER BITE R ANKLE [id number] 03/10/2018 18:41:00 018 20:24:00 DIS Emergency WATKINSKEIRA APRN [facility] ER POSS BUG BITE [id number] 12/31/2017 21:00:00 018 06:13:00 DIS Outpatient MARÍA ELENA APPIAH DO [facility] SLEEP OBSTRUCTIVE SLE EP APNEA G47.33 [id number] 10/15/2017 13:27:00 018 14:00:00 DIS Outpatient 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 SUPERVISOR LENDING ACTIVITIES [facility] SLEEP G47.9 [id number] 12/26/2016 09:21:00 017 23:59:59 CLS Outpatient MARÍA ELENA APPIAH DO [facility] RAD SCREENING 3D [id number] 12/13/2016 09:11:00 017 23:59:59 CLS Outpatient 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 [facility] RAD LEG PAIN [id number] 11/15/2016 08:13:00 017 23:59:59 CLS Outpatient MARÍA ELENA APPIAH DO [facility] RAD BILAT FOOT DISC OLORATION [id number] 10/30/2016 11:08:00 017 13:15:00 DIS Outpatient BEKAH RUTH MD [facility] ENDO SCREENING [id number] 10/26/2016 05:36:00 017 10:20:00 DIS Outpatient BEKAH RUTH MD [facility] PREOP SCREENING [id number] 10/04/2016 08:17:00 017 14:00:00 DIS Outpatient BEKAH RUTH MD [facility] SDC LESIONS X2 [id number] 09/28/2016 05:32:00 017 11:10:00 DIS Outpatient BEKAH RUTH MD [facility] PREOP LESIONS X2 [id number] 08/25/2016 07:30:00 016 12:20:00 DIS Outpatient BEKAH RUTH MD [facility] SDC LEFT FOREARM SCC [id number] 08/23/2016 10:35:00 016 12:27:00 DIS Outpatient FLORY SHAFER, BEKAH Russo [facility] PREOP LEFT FOREARM SCC [id number] 03/24/2016 18:30:00 016 22:01:00 DIS Emergency HORTENCIA MORGAN DO [facility] ER NAUSEA/DIARRHEA [id number] 03/23/2016 01:00:00 016 04:52:00 DIS Emergency ALIYAEMETERIO LEOS DO [facility] ER N/V/D [id number] 11/10/2015 12:35:00 23:59:59 CLS Outpatient MARÍA ELENA APPIAH DO [facility] RAD LT BREAST CALCI FACATIONS [id number] 11/07/2015 13:56:00 15:40:00 DIS Emergency MOHSEN SHAFER, DEREJE Cruz [facility] ER L SIDE PAIN [id number] 11/02/2015 08:03:00 23:59:59 CLS Outpatient MARÍA ELENA APPIAH DO [facility] RAD ABNORMAL MAMMO [id number] 10/25/2015 07:07:00 23:59:59 CLS Outpatient MARÍA ELENA APPIAH DO [facility] RAD UNCONTROLLED HT N, CARDIAC MURMUR,MAMMON SCREENING [id number] 06/05/2015 21:25:00 23:23:00 DIS Emergency SAMUEL LANDRY [facility] ER COUGH;BILAT EAR PAIN [id number] 05/10/2015 13:22:00 14:51:00 DIS Outpatient GRISELDA BOWMAN MD [facility] CARD DDJD LUMBAR [id number] 02/28/2015 12:16:00 14:04:00 DIS Emergency SAMUEL LANDRY [facility] ER RASH [id number] 04/17/2014 10:02:00 014 11:12:00 DIS Emergency KEIRA WATKINS APRN [facility] ER SORE THROAT/EARACHE [id number] 12/01/2013 12:08:00 014 23:59:59 CLS Emergency KEIRA WATKINS APRN [facility] ER UPPER RESPIRATORY ISSUE S [id number] 08/11/2013 07:54:00 23:59:59 CLS Outpatient MARÍA ELENA APPIAH DO [facility] RAD NECK PAIN,HX SP INAL CORD TUMOR [id number] 03/07/2013 10:51:00 23:59:59 CLS Outpatient MARÍA ELENA APPIAH DO [facility] RAD THYROMEGALY [id number] 03/13/2020 03:48:[address] Emergency HORTENCIA MORGAN DO [facility] ER LAC ON RT HAND [id number] 12/12/2015 19:47:00 Document Registration [id number] 12/11/2012 09:06:00 Document Registration [id number] 12/05/2012 15:58:00 Document Registration [id number] 11/30/2012 19:40:00 Document Registration [id number] 11/30/2012 11:47:00 Document Registration [id number] 11/16/2012 09:53:00 Document Registration
== END 2020-03-13 04:27 | disposition home or self-care (01) ==
LOC: EDUNIT# 03:43 → ER 03:48
DX: S61.230A Puncture wound without foreign body of right index finger without damage to nail, initial encounter (principal); L08.9 Local infection of the skin and subcutaneous tissue, unspecified; S90.812A Abrasion, left foot, initial encounter; I10 Essential (primary) hypertension; E11.9 Type 2 diabetes mellitus without complications; G43.909 Migraine, unspecified, not intractable, without status migrainosus; G89.29 Other chronic pain; M54.9 Dorsalgia, unspecified; F41.9 Anxiety disorder, unspecified; M10.9 Gout, unspecified; Z23 Encounter for immunization; Z88.1 Allergy status to other antibiotic agents; Z88.5 Allergy status to narcotic agent; Z88.0 Allergy status to penicillin; Z88.2 Allergy status to sulfonamides; Z88.8 Allergy status to other drugs, medicaments and biological substances; Z79.52 Long term (current) use of systemic steroids; Z87.828 Personal history of other (healed) physical injury and trauma; Z79.891 Long term (current) use of opiate analgesic; Z82.49 Family history of ischemic heart disease and other diseases of the circulatory system; W26.8XXA Contact with other sharp object(s), not elsewhere classified, initial encounter
CPT/HCPCS: 90715; 99284

== ENCOUNTER 2020-07-01 20:16 | Emergency (ER) | payer OTHER ==
[~2020-07-01 20:16] MED LIST changes: -OXYC-465 PO; +OXYC-556 PO
[2020-07-01] MEDS ORDERED: NS IV 1000 ML 1,000 ML IV STA ×2 (21:38→23:00)
[2020-07-01] MEDS ORDERED: ONDANSETRON 4 MG/2 ML (SDV) Z0FRAN IVP ONE (21:45)
[2020-07-01 22:06] LABS: BASOPHILS % (AUTO) 0 % (0-10); EOSINOPHILS # (AUTO) 0.3 10^3/uL (0.0-0.3); EOSINOPHILS % (AUTO) 2 % (0-10); HEMATOCRIT 48 % (35-52); HEMOGLOBIN 16.4 g/dL (11.5-16.0); LYMPHOCYTES # (AUTO) 1.2 10^3/uL (1.0-4.0); LYMPHOCYTES % (AUTO) 8 % (12-44); MEAN CORPUSCULAR HEMOGLOBIN 32 pg (25-34); MEAN CORPUSCULAR HGB CONC 34 g/dL (32-36); MEAN CORPUSCULAR VOLUME 93 fL (80-99); MEAN PLATELET VOLUME 9.4 fL (9.0-12.2); MONOCYTES # (AUTO) 0.9 10^3/uL (0.0-1.0); MONOCYTES % (AUTO) 6 % (0-12); NEUTROPHILS # (AUTO) 12.6 10^3/uL (1.8-7.8); NEUTROPHILS % (AUTO) 83 % (42-75); PLATELET COUNT 261 10^3/uL (130-400); WHITE BLOOD COUNT 15.1 10^3/uL (4.3-11.0)
[2020-07-01 22:09] LABS: ALBUMIN 4.3 GM/DL (3.2-4.5); POTASSIUM 4.9 MMOL/L (3.6-5.0)
[2020-07-01 22:10] LABS: CALCIUM 9.5 MG/DL (8.5-10.1)
[2020-07-01 22:11] LABS: TOTAL PROTEIN 7.6 GM/DL (6.4-8.2)
[2020-07-01 22:13] LABS: BILIRUBIN,TOTAL 0.7 MG/DL (0.1-1.0)
[2020-07-01 22:15] LABS: CREATININE SERUM 1.27 MG/DL (0.60-1.30)
--- NOTE | 2020-07-01 22:54 | ED GI ---
General Chief Complaint: Abdominal/GI Problems Stated Complaint: VOMITING;ABD PAIN Nursing Triage Note: Pt ambulates to room #7 with c/o medial upper abd discomfort, nausea, et vomiting. Pt reports s/s began at approx 1030 on this day. Pt reports to have experienced approx 15 episodes of emesis throughout this day. Pt reports to have experienced similar s/s approx 2.5wks ago. Pt denies fever, cough, or chills. A&OX4. Sepsis Screen: No Definite Risk Source of Information: Patient Exam Limitations: No Limitations History of Present Illness Date Seen by Provider: Jul 01, 2020 Time Seen by Provider: 21:25 Initial Comments Patient is a 54-year-old female who presents to the emergency room today with a chief complaint of epigastric abdominal discomfort nausea vomiting and diarrhea. Onset of symptoms was around 1030 this morning suddenly. Patient states that she had similar symptoms approximately 2 weeks ago that lasted for about 3 days. She did not seek medical attention at that time. She states she had some chills associated with nausea and vomiting and states that she has vomited at least 20 times today. Patient states she has not had any fevers or chills no sore throat no sick contacts. She states she ate to [employer] for breakfast and at 1030 had the onset of symptoms. She denies any black or bloody stools she denies any bloody emesis. She denies any urinary complaints. She has not taken anything for her symptoms. Patient recently started taking insulin for her diabetes within the last couple of weeks. She has had nothing lower than approximately a 200 blood sugar. Patient had been on oral hypoglycemics for about the last year. All other review of systems reviewed and negative except as stated above. Timing/Duration: 12 Hours Severity/Quality: Severe, Cramping Location: Epigastric Radiation: No Radiation Activities at Onset: None Associated Symptoms: Nausea/Vomiting Allergies and Home Medications Allergies Coded Allergies: clindamycin (Verified Allergy, Intermediate, POLYSYSTEMIC ARTHRITIS, 08/23/16) meperidine (Verified Allergy, Intermediate, N/V, 09/28/16) Penicillins (Unverified Allergy, Mild, 06/05/15) Sulfa (Sulfonamide Antibiotics) (Unverified Allergy, Mild, 06/05/15) succinylcholine (Unverified Allergy, Unknown, 06/05/15) Uncoded Allergies: serum dex deficiency (Allergy, Mild, 03/08/09) PSEUDOCHOLINESTERASE (Allergy, Unknown, 06/05/15) Home Medications Allopurinol 100 Mg Tablet, 100 MG PO DAILY, (Reported) Alprazolam 1 Mg Tablet, 1.5 MG PO HS PRN for SLEEP, (Reported) Cephalexin 500 Mg Tablet, 500 MG PO QID Prescribed by: GAMALIEL WHITLOCK on 02/08/19954 Cephalexin 500 Mg Tablet, 500 MG PO QID Prescribed by: HORTENCIA MORGAN on 03/13/20 042 Clonidine HCl 0.1 Mg Tablet, 0.1 MG PO QID, (Reported) Cyanocobalamin (Vitamin B-12) 1,000 Mcg Tablet.er, 1,000 MCG PO DAILY, (Reported) Dicyclomine HCl 20 Mg Tablet, 20 MG PO Q6H PRN for abdominal pain Prescribed by: SHIVA ALVES on 07/01/202254 Estrogens,Conjugated 1.25 Mg Tablet, 1.25-2.5 MG PO DAILY, (Reported) take 1-2 (1.25mg tabs) Hydrocodone Bit/Acetaminophen 1 Each Tablet, 1-2 TAB PO 4-6HR PRN for PAIN Prescribed by: BEKAH RUTH on 08/25/16 100 Nebivolol Hcl 10 Mg Tablet, 10 MG PO HS, (Reported) Ondansetron 8 Mg Tab.rapdis, 8 MG PO Q8H PRN for nausea and vomiting Prescribed by: SHIVA ALVES on 07/01/202254 Oxycodone HCl/Acetaminophen 1 Each Tablet, 1-2 EACH PO Q6H PRN for BREAKTHROUGH PAIN Prescribed by: PAULINA JAMES on 03/11/181906 Polyethylene Glycol 3350 17 Gm Powd.pack, 17 GM PO DAILY PRN PRN for CONSTIPATION-1ST LINE Prescribed by: PAULINA JAMES on 03/11/181906 Potassium Chloride 8 Meq Tablet.sa, 8 MEQ PO BID, (Reported) Prednisone 20 Mg Tab, 40 MG PO DAILY Prescribed by: GAMALIEL WHITLOCK on 02/08/19954 Triamterene/Hydrochlorothiazid 1 Each Tablet, 1 EACH PO DAILY, (Reported) Ubidecarenone 400 Mg Capsule, 400 MG PO DAILY, (Reported) Vitamin E Acetate 400 Unit Capsule, 400 UNIT PO DAILY, (Reported) Patient Home Medication List Home Medication List Reviewed: Yes Review of Systems Review of Systems Constitutional: no symptoms reported EENTM: No Symptoms Reported Respiratory: No Symptoms Reported Cardiovascular: No Symptoms Reported Gastrointestinal: Denies Abdomen Distended; Abdominal Pain; Denies Blood Streaked Stools, Denies Constipated; Diarrhea, Nausea; Denies Rectal Bleeding; Vomiting Genitourinary: No Symptoms Reported Musculoskeletal: no symptoms reported Skin: no symptoms reported Endocrine: No Symptoms Reported All Other Systems Reviewed Negative Unless Noted: Yes Past Ttlgvyj-Ggekem-Gqncsc Hx Patient Social History Alcohol Use: Denies Use Recreational Drug Use: No Smoking Status: Never a Smoker 2nd Hand Smoke Exposure: No Recent Foreign Travel: No Contact w/Someone Who Travel: No Recent Infectious Disease Expo: No Recent Hopitalizations: No Immunizations Up To Date Tetanus Booster (TDap): More than 5yrs Seasonal Allergies Seasonal Allergies: Yes Past Medical History Surgeries: Yes (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, LESION TO FOREARM, lesions) Adenoidectomy, Hysterectomy, Oophorectomy, Tonsillectomy Respiratory: No Pneumonia Cardiac: Yes Hypertension Neurological: Yes Headaches /Migraines 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 Disorders: No 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 Sexually Transmitted Disease: No HIV/AIDS: No Gastrointestinal: No Musculoskeletal: Yes Chronic Back Pain, Gout Endocrine: Yes Diabetes, Non-Insulin dep HEENT: No Loss of Vision: Bilateral Hearing Impairment: Denies Cancer: Yes Skin Psychosocial: Yes Sleep Difficulties, Anxiety Integumentary: No Blood Disorders: No Adverse Reaction/Blood Tranf: No Family Medical History FH: CAD (coronary artery disease) FH: Remedios Gehrig's disease Hypertension G8 BROTHER No Pertinent Family Hx Physical Exam Vital Signs Vital Signs - First Documented 07/01/20 21:25 Temp 36.8 Pulse 121 Resp 18 B/P (MAP) 141/99 (113) Pulse Ox 94 O2 Delivery Room Air Capillary Refill : Less Than 3 Seconds Height/Weight/BMI Height: 5'4.00" Weight: 200lbs. 0.0oz. 90.567444wx; 36.00 BMI Method:Stated General Appearance: WD/WN, no apparent distress HEENT: PERRL/EOMI Neck: full range of motion Respiratory: lungs clear, normal breath sounds, no respiratory distress, no accessory muscle use Cardiovascular: regular rate, rhythm, no edema, no murmur Gastrointestinal: normal bowel sounds, soft, tenderness (abdominal wall tenderness to palpation; no Mckee's sign) Extremities: normal range of motion, non-tender, normal inspection, no pedal edema Neurologic/Psychiatric: alert, normal mood/affect, oriented x 3 Skin: normal color, warm/dry Progress/Results/Core Measures Results/Orders Lab Results Laboratory Tests Test 07/01/20 21:51 Range/Units White Blood Count 15.1 H 4.3-11.0 10^3/uL Red Blood Count 5.15 H 3.80-5.11 10^6/uL Hemoglobin 16.4 H 11.5-16.0 g/dL Hematocrit 48 35-52 % Mean Corpuscular Volume 93 80-99 fL Mean Corpuscular Hemoglobin 32 25-34 pg Mean Corpuscular Hemoglobin Concent 34 32-36 g/dL Red Cell Distribution Width 12.4 10.0-14.5 % Platelet Count 261 130-400 10^3/uL Mean Platelet Volume 9.4 9.0-12.2 fL Immature Granulocyte % (Auto) 1 % Neutrophils (%) (Auto) 83 H 42-75 % Lymphocytes (%) (Auto) 8 L 12-44 % Monocytes (%) (Auto) 6 0-12 % Eosinophils (%) (Auto) 2 0-10 % Basophils (%) (Auto) 0 0-10 % Neutrophils # (Auto) 12.6 H 1.8-7.8 10^3/uL Lymphocytes # (Auto) 1.2 1.0-4.0 10^3/uL Monocytes # (Auto) 0.9 0.0-1.0 10^3/uL Eosinophils # (Auto) 0.3 0.0-0.3 10^3/uL Basophils # (Auto) 0.0 0.0-0.1 10^3/uL Immature Granulocyte # (Auto) 0.1 0.0-0.1 10^3/uL Neutrophils % (Manual) 80 % Lymphocytes % (Manual) 8 % Monocytes % (Manual) 6 % Eosinophils % (Manual) 1 % Band Neutrophils 5 % Polychromasia SLIGHT Microcytosis SLIGHT Sodium Level 137 135-145 MMOL/L Potassium Level 4.9 3.6-5.0 MMOL/L Chloride Level 97 L 98-107 MMOL/L Carbon Dioxide Level 25 21-32 MMOL/L Anion Gap 15 H 5-14 MMOL/L Blood Urea Nitrogen 33 H 7-18 MG/DL Creatinine 1.27 0.60-1.30 MG/DL Estimat Glomerular Filtration Rate 44 BUN/Creatinine Ratio 26 Glucose Level 276 H 70-105 MG/DL Calcium Level 9.5 8.5-10.1 MG/DL Corrected Calcium 9.3 8.5-10.1 MG/DL Total Bilirubin 0.7 0.1-1.0 MG/DL Aspartate Amino Transf (AST/SGOT) 22 5-34 U/L Alanine Aminotransferase (ALT/SGPT) 17 0-55 U/L Alkaline Phosphatase 95 40-136 U/L Total Protein 7.6 6.4-8.2 GM/DL Albumin 4.3 3.2-4.5 GM/DL Lipase 19 8-78 U/L My Orders Orders - SHIVA ALVES MD Cbc With Automated Diff (07/01/20 21:38) Comprehensive Metabolic Panel (07/01/20 21:38) Lipase (07/01/20 21:38) Ns Iv 1000 Ml (Sodium Chloride 0.9%) (07/01/20 21:38) Ondansetron Injection (Zofran Injectio (07/01/20 21:45) Manual Differential (07/01/20 21:51) Ns Iv 1000 Ml (Sodium Chloride 0.9%) (07/01/20 23:00) Medications Given in ED Vital Signs/I&O 07/01/20 07/01/20 21:25 23:49 Temp 36.8 36.6 Pulse 121 105 Resp 18 16 B/P (MAP) 141/99 (113) 143/80 (113) Pulse Ox 94 96 O2 Delivery Room Air Room Air Blood Pressure Mean: 113 Progress Progress Note : Time: 22:50 Progress Note Patient reevaluated, resting comfortably. She did vomit one more time before she got her Zofran and IV fluids. She is comfortable at this point. Patient had CBC, Chem-12 with lipase done. She does have a mild leukocytosis at 15,000. Her chemistry is within normal limits including lipase and liver functions. She will be hydrated with 2 L of IV fluids. At this time her heart rate is still 113. At this point I do not believe that the patient has any acute gallbladder pathology nor hepatitis. It is likely that she has a little gastroenteritis. It is on my differential for gallbladder disease however secondary to the repeated episodes. I plan on sending her home with a prescription for Zofran and Bentyl. I am recommending that she follow-up with her primary care physician, Dr. Appiah. Departure Impression Primary Impression: Abdominal pain Qualified Codes: R10.13 - Epigastric pain Additional Impression: Gastroenteritis Disposition: HOME, SELF-CARE Condition: Stable Departure-Patient Inst. Referrals: MOR APPIAH DO (PCP/Family) Primary Care Physician Patient Instructions: Viral Gastroenteritis, Adult (DC), Severe Abdominal Pain, Adult (DC) Add. Discharge Instructions: Please take in clear liquids for the next 12 hours. You can slowly advance your diet as tolerated after that. I have given you prescriptions for Bentyl which is an abdominal cramping pain medication. You can take this every 6 hours as needed. I have also given your prescription for Zofran which is for nausea you can take this every 8 hours as needed for nausea and vomiting. Both of these prescriptions have been transmitted to your [facility] pharmacy. Please call Dr. Appiah's office in follow-up regarding the abdominal discomfort and nausea vomiting. Please come back to the emergency department if you have a recurrence of symptoms if you are passing blood or have fever with abdominal pain or any other emergent concerns Scripts Ondansetron (Ondansetron Odt) 8 Mg Tab.rapdis 8 MG PO Q8H PRN for nausea and vomiting, #20 TAB Prov: SHIVA ALVES MD 07/01/20 Dicyclomine HCl (Dicyclomine HCl) 20 Mg Tablet 20 MG PO Q6H PRN for abdominal pain, #60 TAB 1 Refill Prov: SHIVA ALVES MD 07/01/20 Copy Copies To 1: MOR APPIAH KATHRYN M MD Jul 01, 2020 22:54
[2020-07-01] MEDS ORDERED: DICY20TA10 PO (22:55)
[2020-07-01] MEDS ORDERED: ONDA8TAB13 PO (22:55)
[2020-07-01 23:20] LABS: BAND NEUTROPHILS 5 %; EOSINOPHILS % (MANUAL) 1 %; LYMPHOCYTES % (MANUAL) 8 %; MICROCYTOSIS SLIGHT; MONOCYTES % (MANUAL) 6 %; NEUTROPHILS % (MANUAL) 80 %; POLYCHROMASIA SLIGHT
[2020-07-01 23:49] VITALS: BP 143/80
== END 2020-07-01 23:49 | disposition home or self-care (01) ==
LOC: EDUNIT# 20:16 → ER 20:17
DX: R10.13 Epigastric pain (principal); K52.9 Noninfective gastroenteritis and colitis, unspecified; F41.9 Anxiety disorder, unspecified; M10.9 Gout, unspecified; G89.29 Other chronic pain; M54.9 Dorsalgia, unspecified; I10 Essential (primary) hypertension; Z82.49 Family history of ischemic heart disease and other diseases of the circulatory system; Z85.828 Personal history of other malignant neoplasm of skin; Z88.0 Allergy status to penicillin; Z88.2 Allergy status to sulfonamides; Z88.5 Allergy status to narcotic agent; Z88.1 Allergy status to other antibiotic agents; Z88.8 Allergy status to other drugs, medicaments and biological substances; Z79.891 Long term (current) use of opiate analgesic; Z79.52 Long term (current) use of systemic steroids
CPT/HCPCS: 36415; 80053; 83690; 85007; 85027

== ENCOUNTER 2021-01-23 21:00 | Inpatient (IN) | payer SELFPAY ==
[~2021-01-23] VITALS: Ht 162.5 cm; Wt 103.5 kg
[~2021-01-23 21:00] MED LIST changes: +CLN.1T PO; -CLON0.1T PO; +DICY20TA10 PO
[2021-01-23] MEDS ORDERED: metroNIDAZOLE 500MG/100ML IVPB 100 ML IV ONE (22:00)
[2021-01-23] MEDS ORDERED: CEFEPIME INJECTION 1,000 MG in WATER (STERILE) FOR INJECTION 10 ML IV ONE (22:00)
[2021-01-23] MEDS ORDERED: VANCOMYCIN INJECTION 1,000 MG in NS (IVPB) 250 ML IV ONE ×2 (22:00→22:45)
[2021-01-23 22:20] LABS: BASOPHILS % (AUTO) 0 % (0-10); EOSINOPHILS # (AUTO) 0.5 10^3/uL (0.0-0.3); EOSINOPHILS % (AUTO) 7 % (0-10); HEMATOCRIT 43 % (35-52); HEMOGLOBIN 14.6 g/dL (11.5-16.0); LYMPHOCYTES # (AUTO) 2.8 10^3/uL (1.0-4.0); LYMPHOCYTES % (AUTO) 40 % (12-44); MEAN CORPUSCULAR HEMOGLOBIN 32 pg (25-34); MEAN CORPUSCULAR HGB CONC 34 g/dL (32-36); MEAN CORPUSCULAR VOLUME 93 fL (80-99); MEAN PLATELET VOLUME 9.5 fL (9.0-12.2); MONOCYTES # (AUTO) 0.7 10^3/uL (0.0-1.0); MONOCYTES % (AUTO) 10 % (0-12); NEUTROPHILS # (AUTO) 3.1 10^3/uL (1.8-7.8); NEUTROPHILS % (AUTO) 43 % (42-75); PLATELET COUNT 246 10^3/uL (130-400); WHITE BLOOD COUNT 7.1 10^3/uL (4.3-11.0)
[2021-01-23] MEDS ORDERED: KETOROLAC 30 MG/ML VIAL IVP ONE (22:30)
[2021-01-23 22:35] LABS: ALBUMIN 4.3 GM/DL (3.2-4.5); POTASSIUM 4.6 MMOL/L (3.6-5.0)
[2021-01-23 22:36] LABS: CALCIUM 9.6 MG/DL (8.5-10.1)
[2021-01-23 22:38] LABS: ERYTHROCYTE SEDIMENTATION RATE 17 MM/HR (0-30); TOTAL PROTEIN 7.8 GM/DL (6.4-8.2)
[2021-01-23 22:39] LABS: BILIRUBIN,TOTAL 0.4 MG/DL (0.1-1.0)
[2021-01-23 22:41] LABS: CREATININE SERUM 1.38 MG/DL (0.60-1.30)
[2021-01-23 23:36] LABS: BILIRUBIN,URINE NEGATIVE (NEGATIVE); CLARITY,URINE CLEAR; COLOR,URINE YELLOW; GLUCOSE, URINE (UA) NEGATIVE (NEGATIVE); KETONES,URINE NEGATIVE (NEGATIVE); LEUKOCYTE ESTERASE ,URINE TRACE (NEGATIVE); NITRITE,URINE NEGATIVE (NEGATIVE); PROTEIN,URINE NEGATIVE (NEGATIVE)
[2021-01-23 23:59] LABS: BACTERIA,URINE NEGATIVE /HPF; SQUAMOUS EPITHELIAL CELL,UR 0-2 /HPF
[2021-01-24] VITALS: BP 103/69
[2021-01-24] MEDS ORDERED: GABAPENTIN 600 MG (NEURONTIN) TAB PO ONE (01:15)
[2021-01-24] MEDS ORDERED: DULoxetine 30 MG (CYMBALTA) CAP PO SCH (01:15)
[2021-01-24] MEDS ORDERED: ALLOPURINOL 300 MG (ZYLOPRIM) TAB PO SCH (01:15)
[2021-01-24] MEDS ORDERED: KCL 8 MEQ (MICRO K) TABLET PO ONE (01:15)
[2021-01-24] MEDS ORDERED: cloNIDine 0.1 MG (CATAPRES) TAB PO ONE (01:15)
[2021-01-24] MEDS: meTOprolol TARTRATE 50 MG (LOPRESSOR) TAB PO SCH (01:37)
[2021-01-24] MEDS: NS IV 1000 ML 1,000 ML IV SCH ×3 (02:07→16:24)
--- NOTE | 2021-01-24 03:25 | ED Lower Extremity ---
General Chief Complaint: Lower Extremity Stated Complaint: [place] FOOT CELLULITIS;IDDM;DIABETIC FOOT ULCER Nursing Triage Note: PATIENT STATES THAT SHE SAW TANA GARNICA FOR DR. PIERRE ON 01/19/21 REGARDING THE REDNESS AND SWELLING IN HER BILAT FEET. THIS WEEKEND, THEY HAVE GOTTEN WORSE AND BLISTERS DEVELOPED ON THE RIGHT FOOT. SHE HAS A HISTORY OF INSULIN DEP DM, SO SHE WANTED TO "GET CHECKED OUT". SHE ALSO HAS NUMEROUS "BITE LEE FROM THE PUPPY" ON BOTH FEET. Nursing Sepsis Screen: No Definite Risk Source: patient (PT IS SOMEWHAT LIMITED HISTORIAN) History of Present Illness Date Seen by Provider: January 23, 2021 Time Seen by Provider: 21:43 Initial Comments PT ARRIVES VIA POV FROM HOME PT STATES SHE IS HERE "FOR SENSITIVE FEET AND TODAY IT'S WORSE" C/O PAIN, REDNESS AND SWELLING TO BOTH FEET--STATES SHE NOTICED IT 2 DAYS AGO. PT HAS MULTIPLE SCABBED SORES TO BOTH FEET AND LOWER LEGS--STATES FROM "THE PUPPIES BITING ME" ( LAUGHING SHE SAYS THIS) NOW HAS DEVELOPED A BLISTER ON TOP OF RIGHT FOOT NO DRAINAGE NO FEVER PT STATES SHE HAS NOT SEEN ANYONE FOR THIS PROBLEM, AND IS NOT ANY DIFFERENT TONIGHT THAN IT WAS EARLIER TODAY PT DOES STATE THAT SHE HAS HAD CELLULITIS OF HER FEET ABOUT 3 YEARS AGO. PT IS INSULIN DEPENDENT DIABETIC, HAS NOT CHECKED BLOOD GLUCOSE TODAY, DOES NOT ROUTINELY CHECK BLOOD GLUCOSE PT DENIES ANY HISTORY OF PERIPHERAL NEUROPATHY OR LOSS OF SENSATION TO FEET PT STATES SHE SAW DR. 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 PT STATES SHE HAD ROUTINE LAB DONE AT DR. PIERRE'S OFFICE. STATES "MY A1C WAS DOWN TO 9.5" ON MED RECONCILIATION, PT WAS PRESCRIBED ZITHROMAX ON 01/12/21 AND AUGMENTIN ON 01/19/21 LAST TETANUS VACCINATION < 1 YEAR AGO Allergies and Home Medications Allergies Coded Allergies: clindamycin (Verified Allergy, Intermediate, POLYSYSTEMIC ARTHRITIS, 08/23/16) meperidine (Verified Allergy, Intermediate, N/V, 09/28/16) Penicillins (Unverified Allergy, Mild, 06/05/15) Sulfa (Sulfonamide Antibiotics) (Unverified Allergy, Mild, 06/05/15) succinylcholine (Unverified Allergy, Unknown, 06/05/15) Uncoded Allergies: serum dex deficiency (Allergy, Mild, 03/08/09) PSEUDOCHOLINESTERASE (Allergy, Unknown, 06/05/15) Home Medications Allopurinol 100 Mg Tablet, 100 MG PO DAILY, (Reported) Alprazolam 1 Mg Tablet, 1.5 MG PO HS PRN for SLEEP, (Reported) Cephalexin 500 Mg Tablet, 500 MG PO QID Prescribed by: GAMALIEL WHITLOCK on 02/08/19954 Cephalexin 500 Mg Tablet, 500 MG PO QID Prescribed by: HORTENCIA MORGAN on 03/13/20 0423 Clonidine HCl 0.1 Mg Tablet, 0.1 MG PO QID, (Reported) Cyanocobalamin (Vitamin B-12) 1,000 Mcg Tablet.er, 1,000 MCG PO DAILY, (Reported) Dicyclomine HCl 20 Mg Tablet, 20 MG PO Q6H PRN for abdominal pain Prescribed by: SHIVA ALVES on 07/01/202254 Estrogens,Conjugated 1.25 Mg Tablet, 1.25-2.5 MG PO DAILY, (Reported) take 1-2 (1.25mg tabs) Hydrocodone Bit/Acetaminophen 1 Each Tablet, 1-2 TAB PO 4-6HR PRN for PAIN Prescribed by: BEKAH RUTH on 08/25/16 100 Nebivolol Hcl 10 Mg Tablet, 10 MG PO HS, (Reported) Ondansetron 8 Mg Tab.rapdis, 8 MG PO Q8H PRN for nausea and vomiting Prescribed by: SHIVA ALVES on 07/01/202254 Oxycodone HCl/Acetaminophen 1 Each Tablet, 1-2 EACH PO Q6H PRN for BREAKTHROUGH PAIN Prescribed by: PAULINA JAMES on 03/11/181906 Polyethylene Glycol 3350 17 Gm Powd.pack, 17 GM PO DAILY PRN PRN for CONSTIPATION-1ST LINE Prescribed by: PAULINA JAMES on 03/11/181906 Potassium Chloride 8 Meq Tablet.sa, 8 MEQ PO BID, (Reported) Prednisone 20 Mg Tab, 40 MG PO DAILY Prescribed by: GAMALIEL WHITLOCK on 02/08/19954 Triamterene/Hydrochlorothiazid 1 Each Tablet, 1 EACH PO DAILY, (Reported) Ubidecarenone 400 Mg Capsule, 400 MG PO DAILY, (Reported) Vitamin E Acetate 400 Unit Capsule, 400 UNIT PO DAILY, (Reported) Patient Home Medication List Home Medication List Reviewed: Yes Review of Systems Constitutional: no symptoms reported Respiratory: no symptoms reported Cardiovascular: no symptoms reported Gastrointestinal: no symptoms reported Genitourinary: no symptoms reported Musculoskeletal: see HPI Skin: see HPI Psychiatric/Neurological: No Symptoms Reported Past [id number] Hx Past Med/Social Hx: Reviewed and Corrections made Patient Social History Alcohol Use: Denies Use Smoking Status: Never a Smoker 2nd Hand Smoke Exposure: No Recent Infectious Disease Expo: No Recent Hopitalizations: No Alcohol Use?: No Immunizations Up To Date Tetanus Booster (TDap): More than 5yrs Seasonal Allergies Seasonal Allergies: Yes Past Medical History Surgeries: Yes (BENIGN TUMOR REMOVED FROM NECK X2, LESION TO FOREARM, SKIN LESTIONS) Adenoidectomy, Hysterectomy, Oophorectomy, Tonsillectomy Respiratory: Yes Pneumonia Cardiac: Yes Hypertension Neurological: Yes Headaches /Migraines 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 Disorders: No 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, 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 Sexually Transmitted Disease: No HIV/AIDS: No Genitourinary: Yes Bladder Infection Gastrointestinal: No Musculoskeletal: Yes Chronic Back Pain, Gout Endocrine: Yes Diabetes, Insulin dep HEENT: No Loss of Vision: Bilateral Hearing Impairment: Denies Cancer: Yes Skin Did You Recieve Any Treatments: Yes What Type of Treatment Did You: Surgical Intervention Psychosocial: Yes Sleep Difficulties, Anxiety Integumentary: No Blood Disorders: No Adverse Reaction/Blood Tranf: No Family Medical History FH: CAD (coronary artery disease) FH: Remedios Gehrig's disease Hypertension G8 BROTHER No Pertinent Family Hx Physical Exam Vital Signs Vital Signs - First Documented Capillary Refill : Less Than 3 Seconds Height, Weight, BMI Height: 5'4.00" Weight: 200lbs. 0.0oz. 90.099307lj; 39.19 BMI Method:Stated General Appearance: WD/WN, no apparent distress, other (SMILING, TEXTING /PLAYING ON PHONE. DOES NOT APPEAR TO BE IN ANY DISCOMFORT OR DISTRESS) Cardiovascular: regular rate, rhythm, no murmur Respiratory: normal breath sounds Legs: bilateral leg other (LOWER LEGS WITH MULTIPLE SCABBED SCRATCHES/PUNCTURES. ) Feet: bilateral foot other (BILATERAL FEET AND ANKLES WITH MARKED ERYTHEMA AND WARMTH. BOTH FEET AND ANKLES WITH MULTIOPLE SCABBED WOUNDS ( PT STATES THEY ARE FROM "PUPPY BITES" ) BOTH FEET MODERATEDLY SWOLLEN. DORSAL ASPECT OF RIGHT FOOT, AT BASE OF 5TH TOE WITH LARGE 2 X3 CM INTACT BULLA. PLANTAR ASPECT OF RIGHT 2ND TOE/ PAD WITH 1 CM DIAMETER. ULCER--AT LEAST STAGE 2. BASE IS DRY/SOMEWHAT SCABBED. NO PURULENT DRAINAGE OR SIGNIFICANT SWELLING OR ERYTHEMA DIRECTLY AROUND THIS WOUND. PT STATES SHE WAS UNAWARE OF THIS ULDER. BOTTOM OF BOTH FE ET ARE VERY DIRTY. DISTAL MOTOR/SENSORY/VASCULAR INTACT. 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 ) Progress/Results/Core Measures Results/Orders Lab Results Laboratory Tests Test 01/23/21 22:07 01/23/21 22:43 Range/Units White Blood Count 7.1 4.3-11.0 10^3/uL Red Blood Count 4.63 3.80-5.11 10^6/uL Hemoglobin 14.6 11.5-16.0 g/dL Hematocrit 43 35-52 % Mean Corpuscular Volume 93 80-99 fL Mean Corpuscular Hemoglobin 32 25-34 pg Mean Corpuscular Hemoglobin Concent 34 32-36 g/dL Red Cell Distribution Width 13.5 10.0-14.5 % Platelet Count 246 130-400 10^3/uL Mean Platelet Volume 9.5 9.0-12.2 fL Immature Granulocyte % (Auto) 0 % Neutrophils (%) (Auto) 43 42-75 % Lymphocytes (%) (Auto) 40 12-44 % Monocytes (%) (Auto) 10 0-12 % Eosinophils (%) (Auto) 7 0-10 % Basophils (%) (Auto) 0 0-10 % Neutrophils # (Auto) 3.1 1.8-7.8 10^3/uL Lymphocytes # (Auto) 2.8 1.0-4.0 10^3/uL Monocytes # (Auto) 0.7 0.0-1.0 10^3/uL Eosinophils # (Auto) 0.5 H 0.0-0.3 10^3/uL Basophils # (Auto) 0.0 0.0-0.1 10^3/uL Immature Granulocyte # (Auto) 0.0 0.0-0.1 10^3/uL Erythrocyte Sedimentation Rate 17 0-30 MM/HR Sodium Level 137 135-145 MMOL/L Potassium Level 4.6 3.6-5.0 MMOL/L Chloride Level 94 L 98-107 MMOL/L Carbon Dioxide Level 30 21-32 MMOL/L Anion Gap 13 5-14 MMOL/L Blood Urea Nitrogen 25 H 7-18 MG/DL Creatinine 1.38 H 0.60-1.30 MG/DL Estimat Glomerular Filtration Rate 40 BUN/Creatinine Ratio 18 Glucose Level 236 H 70-105 MG/DL Calcium Level 9.6 8.5-10.1 MG/DL Corrected Calcium 9.4 8.5-10.1 MG/DL Total Bilirubin 0.4 0.1-1.0 MG/DL Aspartate Amino Transf (AST/SGOT) 33 5-34 U/L Alanine Aminotransferase (ALT/SGPT) 27 0-55 U/L Alkaline Phosphatase 83 40-136 U/L C-Reactive Protein High Sensitivity 1.46 H 0.00-0.50 MG/DL Total Protein 7.8 6.4-8.2 GM/DL Albumin 4.3 3.2-4.5 GM/DL Procalcitonin 0.04 <0.10 NG/ML Lactic Acid Level 2.10 *H 0.50-2.00 MMOL/L My Orders Orders - HORTENCIA MORGAN DO Accucheck Stat ONCE (01/23/21 21:47) Ed Iv/Invasive Line Start (01/23/21 21:47) Cbc With Automated Diff (01/23/21 21:47) Comprehensive Metabolic Panel (01/23/21 21:47) Hs C Reactive Protein (01/23/21 21:47) Lactic Acid Analyzer (01/23/21 21:47) Procalcitonin (Pct) (01/23/21 21:47) Ua Culture If Indicated (01/23/21 21:47) Blood Culture (01/23/21 21:47) Erythrocyte Sedimentation Rate (01/23/21 21:47) Metronidazole 500mg/100ml Ivpb (Flagyl 5 (01/23/21 22:00) Cefepime Injection (Maxipime Injection) (01/23/21 22:00) Vancomycin Injection (Vancomycin Injecti (01/23/21 22:00) Ketorolac Injection (Toradol Injection) (01/23/21 22:30) Medications Given in ED Current Medications Medications Dose Ordered Sig/Marichuy Route Start Time Stop Time Status Last Admin Dose Admin Cefepime HCl 1000 mg/Sterile Water 10 ml @ 200 mls/hr ONCE ONCE IV 01/23/21 22:00 01/23/21 22:02 DC 01/23/21 22:17 200 MLS/HR Ketorolac Tromethamine 30 mg ONCE ONCE IVP 01/23/21 22:30 01/23/21 22:31 DC 01/23/21 22:35 30 MG Metronidazole 100 ml @ 100 mls/hr ONCE ONCE IV 01/23/21 22:00 01/23/21 22:59 DC 01/23/21 22:16 100 MLS/HR Vancomycin HCl 1000 mg/Sodium Chloride 250 ml @ 250 mls/hr ONCE ONCE IV 01/23/21 22:00 01/23/21 22:59 DC 01/23/21 23:34 250 MLS/HR Vancomycin HCl 1000 mg/Sodium Chloride 250 ml @ 250 mls/hr ONCE ONCE IV 01/23/21 22:45 01/23/21 23:44 DC 01/23/21 23:34 250 MLS/HR Vital Signs/I&O 01/23/21 01/23/21 21:09 21:09 Temp 36.3 36.3 Pulse 86 86 Resp 20 20 B/P (MAP) 106/75 (85) 106/75 Pulse Ox 99 O2 Delivery Room Air Blood Pressure Mean: 85 FSBG Bedside Testing Finger Stick Blood Glucose: 213 Progress Progress Note : Progress Note NO DETERIORATION IN PT'S CONDITION DURING ER STAY NO FEVER, VITALS STABLE INITIATED ANTIBIOTICS IN ER GAVE TORADOL FOR PAIN Departure Communication (Admissions) 1155--SPOKE WITH DR. LIN, ACCEPTS PT FOR ADMIT TO DR. PIERRE'S SERVICE Impression Primary Impression: Cellulitis of both feet Additional Impressions: IDDM (insulin dependent diabetes mellitus) DIABETIC FOOT ULCER RIGHT SECOND TOE MULTIPLE DOG BITES AND SCRATCHES TO BOTH LEGS AND FEET Disposition: ADMITTED INPATIENT Condition: Stable Admissions Decision to Admit Reason: Admit from ER (General) Decision to Admit/Date: January 23, 2021 Time/Decision to Admit Time: 22:45 Departure-Patient Inst. Referrals: MOR PIERRE DO (PCP/Family) Primary Care Physician HORTENCIA MORGAN DO January 24, 2021 03:24
[2021-01-24 04:00] VITALS: BP 90/57
[2021-01-24 05:42] LABS: BASOPHILS % (AUTO) 1 % (0-10); EOSINOPHILS # (AUTO) 0.4 10^3/uL (0.0-0.3); EOSINOPHILS % (AUTO) 7 % (0-10); HEMATOCRIT 39 % (35-52); HEMOGLOBIN 12.9 g/dL (11.5-16.0); LYMPHOCYTES # (AUTO) 2.9 10^3/uL (1.0-4.0); LYMPHOCYTES % (AUTO) 49 % (12-44); MEAN CORPUSCULAR HEMOGLOBIN 31 pg (25-34); MEAN CORPUSCULAR HGB CONC 33 g/dL (32-36); MEAN CORPUSCULAR VOLUME 94 fL (80-99); MEAN PLATELET VOLUME 9.1 fL (9.0-12.2); MONOCYTES # (AUTO) 0.5 10^3/uL (0.0-1.0); MONOCYTES % (AUTO) 9 % (0-12); NEUTROPHILS # (AUTO) 2.1 10^3/uL (1.8-7.8); NEUTROPHILS % (AUTO) 35 % (42-75); PLATELET COUNT 195 10^3/uL (130-400); WHITE BLOOD COUNT 5.9 10^3/uL (4.3-11.0)
[2021-01-24 05:46] LABS: ALBUMIN 3.6 GM/DL (3.2-4.5); POTASSIUM 4.3 MMOL/L (3.6-5.0)
[2021-01-24 05:48] LABS: CALCIUM 8.9 MG/DL (8.5-10.1)
[2021-01-24 05:49] LABS: TOTAL PROTEIN 6.2 GM/DL (6.4-8.2)
[2021-01-24 05:51] LABS: BILIRUBIN,TOTAL 0.3 MG/DL (0.1-1.0)
[2021-01-24 05:52] LABS: CREATININE SERUM 1.64 MG/DL (0.60-1.30)
[2021-01-24] MEDS: inSUlin ASPART (NovoLOG) 1 UNIT/0.01 ML (CHARGE PER UNIT) SC SCH ×4 (06:01→21:21)
[2021-01-24] MEDS: CEFEPIME 1,000 MG/SWFI 10 ML IV PUSH IV SCH ×8 (06:09→23:30)
[2021-01-24] MEDS: metroNIDAZOLE 500 MG/100 ML IVPB (PRE-MIX) IV SCH ×2 (07:58→20:14)
[2021-01-24 08:00] VITALS: BP 82/48
[2021-01-24 11:43] VITALS: BP 121/58
[2021-01-24] MEDS ORDERED: POTA8TAB54 PO (14:42)
[2021-01-24] MEDS ORDERED: VITA-272 PO (14:42)
[2021-01-24] MEDS ORDERED: EST1.25T PO (14:42)
[2021-01-24] MEDS ORDERED: DULO60CA59 PO (14:42)
[2021-01-24] MEDS ORDERED: INSN1U SQ (14:42)
[2021-01-24] MEDS ORDERED: GBPN600T PO (14:42)
[2021-01-24] MEDS ORDERED: DOXE25CA46 PO (14:42)
[2021-01-24] MEDS ORDERED: BACL20TA PO (14:42)
[2021-01-24] MEDS ORDERED: METO100T12 PO (14:42)
[2021-01-24] MEDS ORDERED: INSU100V31 SQ (14:42)
[2021-01-24] MEDS ORDERED: CLN.1T PO (14:42)
[2021-01-24] MEDS ORDERED: ALLO300T2 PO (14:42)
[2021-01-24] MEDS ORDERED: FURO40TA4 PO (14:42)
[2021-01-24] MEDS ORDERED: MULT-1136 PO (14:42)
[2021-01-24] MEDS ORDERED: CYCL10TA9 PO (14:42)
[2021-01-24] MEDS ORDERED: HYDR-3820 PO (14:42)
[2021-01-24] MEDS ORDERED: TRIA1TAB5 PO (14:42)
[2021-01-24] MEDS ORDERED: HYDR-700 PO (14:42)
[2021-01-24] MEDS ORDERED: CALC-250 PO (14:42)
[2021-01-24 15:52] VITALS: BP 108/69
[2021-01-24] MEDS: VANCOMYCIN INJECTION 1,500 MG in NS IV 500 ML 500 ML IV SCH (16:24)
[2021-01-24] MEDS: ENOXAPARIN 40 MG/0.4 ML (LOVENOX) SYR SC SCH (16:52)
--- NOTE | 2021-01-24 16:52 | History & Physical ---
History of Present Illness History of Present Illness Reason for visit/HPI This is a 55 year old poorly controlled diabetic--insulin requiring--who presented to the ER with complaint of possible cellulitis of her feet. She states that she has had a sore on the bottom of her right second toe that she thought was an abrasion. She also reports sores on her feet due to "puppy bites." She has been on antibiotics for sinusitis and URI but her feet were getting worse so she presented to the emergency room. She will be admitted for IV antibiotics and wound care consult. Date of Admission January 23, 2021 at 22:45 Date Seen by a Provider: January 24, 2021 Time Seen by a Provider: 12:45 I consulted on this patient on 01/24/21 16:46 Attending Physician Tisha Flores MD Admitting Physician Mor Pierre DO Consult Allergies and Home Medications Allergies Coded Allergies: clindamycin (Verified Allergy, Intermediate, POLYSYSTEMIC ARTHRITIS, 08/23/16) meperidine (Verified Allergy, Intermediate, N/V, 09/28/16) Penicillins (Unverified Allergy, Mild, 06/05/15) Sulfa (Sulfonamide Antibiotics) (Unverified Allergy, Mild, 06/05/15) succinylcholine (Unverified Allergy, Unknown, 06/05/15) Uncoded Allergies: serum dex deficiency (Allergy, Mild, 03/08/09) PSEUDOCHOLINESTERASE (Allergy, Unknown, 06/05/15) Home Medications Allopurinol 300 Mg Tablet, 300 MG PO HS, (Reported) Last Action: Continued Baclofen 20 Mg Tablet, 20 MG PO TID PRN for MUSCLE SPASMS, (Reported) Last Action: Held Cholecalciferol (Vitamin D3) 125 Mcg Tablet, 125 MCG PO HS, (Reported) Last Action: Continued Clonidine HCl 0.1 Mg Tablet, 0.1 MG PO QID, (Reported) Last Action: Held Cyclobenzaprine HCl 10 Mg Tablet, 10 MG PO HS, (Reported) Last Action: Held Doxepin HCl 25 Mg Capsule, 25 MG PO HS, (Reported) Last Action: Continued Duloxetine HCl 60 Mg Capsule.dr, 60 MG PO HS, (Reported) Last Action: Converted Estrogens Conjugated 1.25 Mg Tab, 1.25 MG PO DAILY, (Reported) Last Action: Converted Furosemide 40 Mg Tablet, 40 MG PO DAILY PRN for WATER RETENTION, (Reported) Last Action: Held Gabapentin 600 Mg Tablet, 600 MG PO BID, (Reported) Last Action: Continued Hydrocodone/Acetaminophen 1 Each Tablet, 1-2 EACH PO QID PRN for PAIN-MODERATE (5-7), (Reported) Last Action: Continued Hydroxyzine HCl 25 Mg Tablet, 25 MG PO Q4H PRN for ITCHING, (Reported) Last Action: Held Insulin NPH Human Isophane 100 Unit/1 Ml Vial, 50 UNIT SQ WITH BREAKFAST, (Reported) Last Action: Held Insulin Regular, Human 100 Unit/1 Ml Vial, 35 UNIT SQ WITH DINNER, (Reported) Last Action: Held Metoprolol Tartrate 100 Mg Tablet, 100 MG PO BID, (Reported) Last Action: Held Multivitamin 1 Each Tablet, 1 EACH PO DAILY, (Reported) Last Action: Converted Potassium Chloride 8 Meq Tablet.er, 8 MEQ PO BID, (Reported) Last Action: Held Triamterene/Hydrochlorothiazid 1 Each Tablet, 1 EACH PO DAILY, (Reported) Last Action: Held Vitamin E Mixed 400 Unit Capsule, 1,200 UNIT PO HS, (Reported) TAKES 3 (400UNIT) CAPSULES Last Action: Held Patient Home Medication List Home Medication List Reviewed: Yes Past Qhggtqm-Kfdrih-Uxdxyf Hx Past Med/Social Hx: Reviewed Nursing Past Med/Soc Hx, Reviewed and Corrections made Patient Social History Marrital Status: Employed/Student: employed Alcohol Use: Denies Use Recreational Drug Use: No Smoking Status: Never a Smoker 2nd Hand Smoke Exposure: No Recent Foreign Travel: No Contact w/other who traveled: No Recent Hopitalizations: No Recent Infectious Disease Expo: No Immunizations Up To Date Tetanus Booster (TDap): More than 5yrs Seasonal Allergies Seasonal Allergies: Yes Past Medical History Surgeries: Adenoidectomy, Hysterectomy, Oophorectomy, Tonsillectomy Cardiac: Hypertension Neurological: Headaches /Migraines 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: No Sexually Transmitted Disease: No HIV/AIDS: No Hysterectomy, Menopausal Genitourinary: Bladder Infection Musculoskeletal: Chronic Back Pain, Gout Endocrine: Diabetes, Insulin dep Loss of Vision: Bilateral Hearing Impairment: Denies Cancer: Skin Did You Recieve Any Treatments: Yes What Type of Treatment Did You: Surgical Intervention Psychosocial: Sleep Difficulties, Anxiety History of Blood Disorders: No Adverse Reaction to Blood Cunningham: No Family History FH: CAD (coronary artery disease) FH: Remedios Gehrig's disease Hypertension G8 BROTHER No Pertinent Family Hx Review of Systems Constitutional: No no symptoms reported, No see HPI, No chills, No diaphoresis, No dizziness, No fever, No malaise, No weakness, No weight gain, No weight loss, No other EENTM: nose congestion Respiratory: cough Cardiovascular: No no symptoms reported, No see HPI, No chest pain, No edema, No Hx of Intervention, No palpitations, No syncope, No vascular heart diseas, No other Gastrointestinal: No RUQ, No LUQ, No RLQ, No LLQ, No no symptoms reported, No see HPI, No abdominal pain, No constipation, No diarrhea, No dysphagia, No hematemesis, No heartburn, No jaundice, No loss of appetite, No melena, No nausea, No vomiting, No other Genitourinary: No no symptoms reported, No see HPI, No decreased output, No discharge, No dysuria, No frequency, No hematuria, No hesitancy, No incontinence, No nocturia, No pain, No other Musculoskeletal: back pain Skin: change in color (feet), lesions (right 2nd toe sore and scabs/sores to bilateral feet) Psychiatric/Neurological: Denies No Symptoms Reported, Denies See HPI, Denies Anxiety, Denies Depressed, Denies Emotional Problems, Denies Headache, Denies Numbness, Denies Paresthesia, Denies Pre-Existing Deficit, Denies Seizure, Denies Tingling, Denies Tremors, Denies Weakness, Denies Other Physical Exam Vital Signs Vital Signs - First Documented Capillary Refill : Less Than 3 Seconds Height, Weight, BMI Height: 5'4.00" Weight: 200lbs. 0.0oz. 90.881058gb; 39.19 BMI Method:Stated General Appearance: No Apparent Distress HEENT: Normal ENT Inspection Neck: Supple Respiratory: Lungs Clear Cardiovascular: Regular Rate, Rhythm Gastrointestinal: Normal Bowel Sounds, Non Tender, Soft Rectal: Deferred Back: No CVA Tenderness Extremity: Non Tender, No Calf Tenderness, No Pedal Edema Neurologic/Psychiatric: Alert, Oriented x3 Skin: Warm/Dry, Erythema (bilateral feet and toes), Other (5mm ulcer to bottom of right 2nd toe and scattered scabbed lesions to both feet and toes) Assessment/Plan Assessment and Plan 1. Bilateral Foot Cellulitis--admit for IV antibiotics 2. Diabetic Right 2nd Toe Ulcer--wound care 3. Uncontrolled Diabetes mellitus--insulin requiring--start accuchecks with SSI 4. Hypertensio with current hypotension--monitor BP and resume home BP meds when needed Admission Diagnosis Admission Status: Inpatient Order (span 2 midnights) Reason for Inpatient Admission: Will need IV abx for at least 48hrs MOR PIERRE DO January 24, 2021 16:52
[2021-01-24] MEDS: KETOROLAC 15 MG/ML VIAL IVP PRN ×2 (17:41→23:29)
[2021-01-24 19:55] VITALS: BP 110/68
[2021-01-24] MEDS: VITAMIN D3 125 MCG (5,000 UNITS) CAPSULE PO SCH (20:14)
[2021-01-24] MEDS: DOXEPIN 25 MG (SINEquan) CAP PO SCH (20:14)
[2021-01-24] MEDS: DULoxetine 30 MG (CYMBALTA) CAP PO SCH (20:14)
[2021-01-24] MEDS: ALLOPURINOL 300 MG (ZYLOPRIM) TAB PO SCH (20:15)
[2021-01-24] MEDS: GABAPENTIN 600 MG (NEURONTIN) TAB PO SCH (20:15)
[2021-01-24] MEDS ORDERED: DOXEPIN 25 MG (SINEquan) CAP PO SCH (21:00)
[2021-01-24] MEDS ORDERED: NON-FORMULARY MEDICATION 1 EA EA (Duloxetine HCl 60 MG) PO SCH (21:00)
[2021-01-25 00:49] VITALS: BP 106/79
[2021-01-25] MEDS: NS IV 1000 ML 1,000 ML IV SCH ×4 (01:57→15:58)
[2021-01-25 04:29] VITALS: BP 109/69
[2021-01-25] MEDS: inSUlin ASPART (NovoLOG) 1 UNIT/0.01 ML (CHARGE PER UNIT) SC SCH ×4 (05:35→20:56)
[2021-01-25] MEDS: CEFEPIME 1,000 MG/SWFI 10 ML IV PUSH IV SCH ×6 (05:51→18:20)
[2021-01-25] MEDS: MULTIVIT W/MINERALS TAB (THERAGRAN M) PO SCH (05:51)
[2021-01-25] MEDS: ESTROGENS CONJ 0.625 MG (PREMARIN) TAB PO SCH (08:14)
[2021-01-25] MEDS: GABAPENTIN 600 MG (NEURONTIN) TAB PO SCH ×2 (08:15→20:55)
[2021-01-25] MEDS: KETOROLAC 15 MG/ML VIAL IVP PRN ×2 (08:15→15:04)
[2021-01-25] MEDS: metroNIDAZOLE 500 MG/100 ML IVPB (PRE-MIX) IV SCH ×2 (08:15→20:56)
[2021-01-25 08:16] VITALS: BP 142/77
[2021-01-25] MEDS ORDERED: ESTROGENS CONJUGATED 1.25 MG PO SCH (09:00)
[2021-01-25] MEDS ORDERED: NON-FORMULARY MEDICATION 1 EA EA (Multivitamin 1 EACH) PO SCH (09:00)
[2021-01-25 11:18] VITALS: BP 174/94
[2021-01-25] MEDS: cloNIDine 0.1 MG (CATAPRES) TAB PO SCH ×2 (12:45→20:55)
[2021-01-25] MEDS: meTOprolol TARTRATE 50 MG (LOPRESSOR) TAB PO SCH (12:46)
--- NOTE | 2021-01-25 13:55 | Progress Note ---
Subjective Date Seen by a Provider: January 25, 2021 Time Seen by a Provider: 12:30 Subjective/Events-last exam Fwup bilateral foot cellultis, right 2nd toe diabetic foot ulcer, uncontrolled DM I, HTN. Feet less red and swollen but still painful. Focused Exam Lactate Level 01/23/21 22:43: Lactic Acid Level 2.10*H 01/24/21 00:50: Lactic Acid Level 1.36 Objective Exam Vital Signs Date Time Temp Pulse Resp B/P (MAP) Pulse Ox O2 Delivery O2 Flow Rate FiO2 01/25/21 11:18 36.5 83 20 174/94 (120) 92 Room Air 01/25/21 09:00 Room Air 01/25/21 08:16 142/77 (98) 01/25/21 04:29 36.4 90 20 109/69 (82) 91 Room Air 01/25/21 00:49 36.9 80 20 106/79 (88) 95 Room Air 01/24/21 20:14 Room Air 01/24/21 19:55 36.3 89 20 110/68 (82) 96 Room Air 01/24/21 15:52 36.0 79 20 108/69 (82) 96 Room Air I & O 01/25/21 07:00 Intake Total 1090 ml Output Total 2450 ml Balance -1360 ml Capillary Refill : Less Than 3 Seconds General Appearance: No Apparent Distress Extremity: Non Tender, No Calf Tenderness, No Pedal Edema Neurologic/Psychiatric: Alert, Oriented x3 Skin: Erythema Results Lab Laboratory Tests 01/24/21 15:56: Glucometer 212H 01/24/21 20:32: Glucometer 209H 01/25/21 05:22: Glucometer 193H 01/25/21 10:20: Glucometer 183H Microbiology 01/23/21 Blood Culture - Preliminary, Resulted No growth Assessment/Plan Assessment/Plan Assess & Plan/Chief Complaint 1. Acute Bilateral Foot Cellulitis--Continue IV abx, wound care 2. Right 2nd Toe Diabetic Foot Ulcer--Dr. Celis to evaluate for possible debridement 3. Uncontrolled DM II--insulin requiring--Add NPH and continue SSI 4. Hypertension--resume clonidine and low dose metoprolol Clinical Quality Measures Admission Status Admission Dx 1. Bilateral Foot Cellulitis--admit for IV antibiotics 2. Diabetic Right 2nd Toe Ulcer--wound care 3. Uncontrolled Diabetes mellitus--insulin requiring--start accuchecks with SSI 4. Hypertensio with current hypotension--monitor BP and resume home BP meds when needed MOR PIERRE DO January 25, 2021 13:55
[2021-01-25] MEDS ORDERED: TROUGH ORDER-PHARMACY XX ONE (15:00)
[2021-01-25 15:52] VITALS: BP 116/78
[2021-01-25] MEDS: VANCOMYCIN INJECTION 1,500 MG in NS IV 500 ML 500 ML IV SCH (16:27)
[2021-01-25] MEDS: ENOXAPARIN 40 MG/0.4 ML (LOVENOX) SYR SC SCH (17:11)
--- NOTE | 2021-01-25 17:25 | Wound Care Assessment ---
Wound Care Assessment Date Seen by Provider: January 25, 2021 Time Seen by Provider: 17:00 Chief Complaint Infected dog bites bilateral feet. HPI The patient is a 45 year old female diabetic with multiple infected dog bites of both feet. These are improved with 48 hours of IV antibiotics. The wounds are dressed with silver alginate and bordered foam dressings. Course reviewed with Jacob RENEE. Agree with current management. Past Medical History: Admits Diabetes Type II Smoking Status: Never a Smoker Recreational Drug Use: No Alcohol Use: Denies Use Review of Systems Pulmonary: No Dyspnea Cardiovascular: No: Chest Pain Exam Vital Signs Date Time Temp Pulse Resp B/P (MAP) Pulse Ox O2 Delivery O2 Flow Rate FiO2 01/25/21 15:52 36.3 80 18 116/78 (91) 90 Room Air Capillary Refill : Less Than 3 Seconds Extremities: other (Multiple infected dog bites of both feet, improving on antibiotics, per report.) Results Laboratory Tests 01/24/21 20:32: Glucometer 209H 01/25/21 05:22: Glucometer 193H 01/25/21 10:20: Glucometer 183H 01/25/21 15:00: Vancomycin Level Trough 13.8 01/25/21 15:26: Glucometer 279H Microbiology 01/23/21 Blood Culture - Preliminary, Resulted No growth Microbiology 01/23/21 Blood Culture - Preliminary, Resulted No growth 01/23/21 Blood Culture - Preliminary, Resulted No growth Assessment/Plan/Dx 1. Infected dog bites, bilateral feet. 2. Diabetic foot ulcers, diabetic neuropathy. Plan: Agree with current management. LIA BHANDARI MD January 25, 2021 17:25
[2021-01-25 19:35] VITALS: BP 143/88
[2021-01-25] MEDS: DOXEPIN 25 MG (SINEquan) CAP PO SCH (20:55)
[2021-01-25] MEDS: ALLOPURINOL 300 MG (ZYLOPRIM) TAB PO SCH (20:55)
[2021-01-25] MEDS: DULoxetine 30 MG (CYMBALTA) CAP PO SCH (20:55)
[2021-01-25] MEDS: VITAMIN D3 125 MCG (5,000 UNITS) CAPSULE PO SCH (20:58)
[2021-01-25] MEDS ORDERED: inSUlin NPH (NovoLIN N) 1 UNIT/0.01 ML (CHARGE PER UNIT) SQ SCH (21:00)
[2021-01-26] VITALS (7 sets, daily range): BP systolic 102–136; BP diastolic 71–90
[2021-01-26] MEDS: CEFEPIME 1,000 MG/SWFI 10 ML IV PUSH IV SCH ×10 (00:35→23:50)
[2021-01-26] MEDS: NS IV 1000 ML 1,000 ML IV SCH ×3 (04:19→17:05)
[2021-01-26] MEDS: MULTIVIT W/MINERALS TAB (THERAGRAN M) PO SCH (05:58)
[2021-01-26] MEDS: KETOROLAC 15 MG/ML VIAL IVP PRN ×3 (05:58→20:04)
[2021-01-26] MEDS: inSUlin ASPART (NovoLOG) 1 UNIT/0.01 ML (CHARGE PER UNIT) SC SCH ×4 (06:04→21:43)
[2021-01-26] MEDS: metroNIDAZOLE 500 MG/100 ML IVPB (PRE-MIX) IV SCH ×2 (08:10→21:42)
[2021-01-26] MEDS: cloNIDine 0.1 MG (CATAPRES) TAB PO SCH ×3 (08:14→21:43)
[2021-01-26] MEDS: GABAPENTIN 600 MG (NEURONTIN) TAB PO SCH ×2 (08:15→21:43)
[2021-01-26] MEDS: ESTROGENS CONJ 0.625 MG (PREMARIN) TAB PO SCH (08:15)
--- NOTE | 2021-01-26 12:53 | Progress Note ---
Subjective Date Seen by a Provider: January 26, 2021 Time Seen by a Provider: 12:50 Subjective/Events-last exam Fwup bilateral foot cellultis, right 2nd toe diabetic foot ulcer, uncontrolled DM I, HTN. Feet less red. Plan is for Dr. Celis to debride toe ulcer and blisters tomorrow. Focused Exam Lactate Level 01/23/21 22:43: Lactic Acid Level 2.10*H 01/24/21 00:50: Lactic Acid Level 1.36 Objective Exam Vital Signs Date Time Temp Pulse Resp B/P (MAP) Pulse Ox O2 Delivery O2 Flow Rate FiO2 01/26/21 11:38 37.6 74 18 130/85 (100) 92 Room Air 01/26/21 08:00 36.3 96 18 130/79 (96) 97 Room Air 01/26/21 04:00 36.3 90 19 126/79 (95) 92 Room Air 01/26/21 00:00 35.8 91 18 102/71 (81) 93 Room Air 01/25/21 20:56 Room Air 01/25/21 19:35 36.5 87 18 143/88 (106) 97 Room Air 01/25/21 15:52 36.3 80 18 116/78 (91) 90 Room Air I & O 01/26/21 07:00 Intake Total 850 ml Output Total 2500 ml Balance -1650 ml Capillary Refill : Less Than 3 Seconds General Appearance: No Apparent Distress Extremity: Non Tender, No Calf Tenderness, No Pedal Edema Neurologic/Psychiatric: Alert, Oriented x3 Skin: Erythema (to feet improving/toes still with swelling), Other (scabbed sores stable) Results Lab Laboratory Tests 01/25/21 15:00: Vancomycin Level Trough 13.8 01/25/21 15:26: Glucometer 279H 01/25/21 20:13: Glucometer 208H 01/26/21 00:46: Glucometer 193H 01/26/21 06:03: Glucometer 175H 01/26/21 10:58: Glucometer 222H Microbiology 01/23/21 Blood Culture - Preliminary, Resulted No growth Assessment/Plan Assessment/Plan Assess & Plan/Chief Complaint 1. Acute Bilateral Foot Cellulitis--Continue IV abx, wound care to debride tomorrow 2. Right 2nd Toe Diabetic Foot Ulcer--Dr. Celis to debride tomorrow 3. Uncontrolled DM II--insulin requiring--Increase NPH and continue SSI 4. Hypertension--stable on clonidine and low dose metoprolol Clinical Quality Measures Admission Status Admission Dx 1. Bilateral Foot Cellulitis--admit for IV antibiotics 2. Diabetic Right 2nd Toe Ulcer--wound care 3. Uncontrolled Diabetes mellitus--insulin requiring--start accuchecks with SSI 4. Hypertensio with current hypotension--monitor BP and resume home BP meds when needed MOR PIERRE DO January 26, 2021 12:53
[2021-01-26] MEDS: ENOXAPARIN 40 MG/0.4 ML (LOVENOX) SYR SC SCH (17:05)
[2021-01-26] MEDS: VANCOMYCIN INJECTION 1,500 MG in NS IV 500 ML 500 ML IV SCH (17:06)
[2021-01-26] MEDS: ONDANSETRON 4 MG/2 ML (SDV) Z0FRAN IVP PRN (20:17)
[2021-01-26] MEDS: DOXEPIN 25 MG (SINEquan) CAP PO SCH (21:43)
[2021-01-26] MEDS: VITAMIN D3 125 MCG (5,000 UNITS) CAPSULE PO SCH (21:43)
[2021-01-26] MEDS: ALLOPURINOL 300 MG (ZYLOPRIM) TAB PO SCH (21:43)
[2021-01-26] MEDS: DULoxetine 30 MG (CYMBALTA) CAP PO SCH (21:45)
[2021-01-26] MEDS: inSUlin NPH (NovoLIN N) 1 UNIT/0.01 ML (CHARGE PER UNIT) SQ SCH (21:51)
[2021-01-27 03:26] VITALS: BP 115/65
[2021-01-27] MEDS: KETOROLAC 15 MG/ML VIAL IVP PRN ×2 (03:34→13:18)
[2021-01-27] MEDS: ONDANSETRON 4 MG/2 ML (SDV) Z0FRAN IVP PRN ×2 (03:37→19:56)
[2021-01-27] MEDS: NS IV 1000 ML 1,000 ML IV SCH ×3 (03:39→15:46)
[2021-01-27] MEDS: inSUlin ASPART (NovoLOG) 1 UNIT/0.01 ML (CHARGE PER UNIT) SC SCH ×4 (06:15→21:04)
[2021-01-27] MEDS: CEFEPIME 1,000 MG/SWFI 10 ML IV PUSH IV SCH ×6 (06:15→18:35)
[2021-01-27] MEDS: MULTIVIT W/MINERALS TAB (THERAGRAN M) PO SCH (06:15)
[2021-01-27] MEDS: ACETAMINOPHEN 500 MG TAB (TYLENOL) PO PRN ×2 (06:21→08:10)
[2021-01-27] MEDS: metroNIDAZOLE 500 MG/100 ML IVPB (PRE-MIX) IV SCH ×2 (08:00→21:17)
[2021-01-27] MEDS: cloNIDine 0.1 MG (CATAPRES) TAB PO SCH ×3 (08:01→21:17)
[2021-01-27] MEDS: GABAPENTIN 600 MG (NEURONTIN) TAB PO SCH ×2 (08:01→21:17)
[2021-01-27] MEDS: ESTROGENS CONJ 0.625 MG (PREMARIN) TAB PO SCH (08:01)
[2021-01-27 08:17] VITALS: BP 129/84
[2021-01-27 11:40] VITALS: BP 128/85
--- NOTE | 2021-01-27 12:50 | Progress Note ---
Subjective Date Seen by a Provider: January 27, 2021 Time Seen by a Provider: 12:47 Subjective/Events-last exam Fwup bilateral foot cellultis, right 2nd toe diabetic foot ulcer, uncontrolled DM I, HTN. Some wheezing last night. Objective Exam Vital Signs Date Time Temp Pulse Resp B/P (MAP) Pulse Ox O2 Delivery O2 Flow Rate FiO2 01/27/21 11:40 36.6 88 18 128/85 (99) 97 Room Air 01/27/21 09:00 Room Air 01/27/21 08:17 37.0 96 17 129/84 (99) 92 Room Air 01/27/21 03:26 36.5 83 18 115/65 (82) 90 Room Air 01/26/21 23:53 36.7 80 18 117/71 (86) 92 Room Air 01/26/21 20:00 Room Air 01/26/21 20:00 36.7 83 18 136/90 (105) 91 Room Air 01/26/21 15:36 36.5 76 20 117/80 (92) 93 Room Air I & O 01/27/21 06:59 Intake Total 1370 ml Output Total 1300 ml Balance 70 ml Capillary Refill : Less Than 3 Seconds General Appearance: No Apparent Distress Neck: Supple Respiratory: Wheezing (occasional end expiratory) Cardiovascular: Regular Rate, Rhythm Extremity: Non Tender, No Calf Tenderness, No Pedal Edema Neurologic/Psychiatric: Alert, Oriented x3 Skin: Warm/Dry, Erythema (to feet improved--still some swelling in digits and some blisters on right foot) Results Lab Laboratory Tests 01/26/21 17:16: Glucometer 176H 01/26/21 21:01: Glucometer 180H 01/27/21 06:09: Glucometer 168H 01/27/21 10:11: Glucometer 173H Microbiology 01/23/21 Blood Culture - Preliminary, Resulted No growth Assessment/Plan Assessment/Plan Assess & Plan/Chief Complaint 1. Acute Bilateral Foot Cellulitis--Continue IV abx, wound care to debride today 2. Right 2nd Toe Diabetic Foot Ulcer--Dr. Celis to debride today 3. Uncontrolled DM II--insulin requiring--Increase NPH and continue SSI 4. Hypertension--stable on clonidine and low dose metoprolol Clinical Quality Measures Admission Status Admission Dx 1. Bilateral Foot Cellulitis--admit for IV antibiotics 2. Diabetic Right 2nd Toe Ulcer--wound care 3. Uncontrolled Diabetes mellitus--insulin requiring--start accuchecks with SSI 4. Hypertensio with current hypotension--monitor BP and resume home BP meds when needed MOR PIERRE DO January 27, 2021 12:50
[2021-01-27] MEDS: RT-ALBUTEROL INHALER HFA (VENTOLIN HFA) 18 GM IH SCH ×3 (14:00→21:17)
[2021-01-27 16:00] VITALS: BP 144/92
[2021-01-27] MEDS: VANCOMYCIN INJECTION 1,500 MG in NS IV 500 ML 500 ML IV SCH (16:16)
[2021-01-27] MEDS: ENOXAPARIN 40 MG/0.4 ML (LOVENOX) SYR SC SCH (16:16)
[2021-01-27 20:01] VITALS: BP 143/90
[2021-01-27] MEDS: VITAMIN D3 125 MCG (5,000 UNITS) CAPSULE PO SCH (21:16)
[2021-01-27] MEDS: inSUlin NPH (NovoLIN N) 1 UNIT/0.01 ML (CHARGE PER UNIT) SQ SCH (21:16)
[2021-01-27] MEDS: DOXEPIN 25 MG (SINEquan) CAP PO SCH (21:17)
[2021-01-27] MEDS: DULoxetine 30 MG (CYMBALTA) CAP PO SCH (21:17)
[2021-01-27] MEDS: ALLOPURINOL 300 MG (ZYLOPRIM) TAB PO SCH (21:17)
[2021-01-28 00:48] VITALS: BP 131/82
[2021-01-28] MEDS: CEFEPIME 1,000 MG/SWFI 10 ML IV PUSH IV SCH ×8 (00:54→18:23)
[2021-01-28] MEDS: NS IV 1000 ML 1,000 ML IV SCH ×3 (00:55→07:48)
[2021-01-28] MEDS: KETOROLAC 15 MG/ML VIAL IVP PRN ×3 (01:33→18:23)
[2021-01-28] MEDS: RT-ALBUTEROL INHALER HFA (VENTOLIN HFA) 18 GM IH SCH ×6 (02:24→21:50)
[2021-01-28 04:46] VITALS: BP 117/69
[2021-01-28] MEDS: MULTIVIT W/MINERALS TAB (THERAGRAN M) PO SCH (06:53)
[2021-01-28] MEDS: inSUlin ASPART (NovoLOG) 1 UNIT/0.01 ML (CHARGE PER UNIT) SC SCH ×4 (06:53→20:17)
[2021-01-28 07:15] VITALS: BP 109/61
[2021-01-28] MEDS: metroNIDAZOLE 500 MG/100 ML IVPB (PRE-MIX) IV SCH (08:50)
[2021-01-28] MEDS: cloNIDine 0.1 MG (CATAPRES) TAB PO SCH ×3 (08:50→21:11)
[2021-01-28] MEDS: ESTROGENS CONJ 0.625 MG (PREMARIN) TAB PO SCH (08:50)
[2021-01-28] MEDS: GABAPENTIN 600 MG (NEURONTIN) TAB PO SCH ×2 (08:50→21:11)
--- NOTE | 2021-01-28 09:46 | Progress Note ---
Subjective Date Seen by a Provider: January 28, 2021 Time Seen by a Provider: 09:44 Subjective/Events-last exam Fwup bilateral foot cellultis, right 2nd toe diabetic foot ulcer, uncontrolled DM I, HTN. Had toe and blisters debrided last night and right foot burning more. Objective Exam Vital Signs Date Time Temp Pulse Resp B/P (MAP) Pulse Ox O2 Delivery O2 Flow Rate FiO2 01/28/21 07:15 36.4 90 14 109/61 (77) 92 Room Air 01/28/21 06:06 93 Room Air 01/28/21 04:46 36.7 88 20 117/69 (85) 96 Room Air 01/28/21 02:25 Room Air 90 01/28/21 00:48 37.0 95 20 131/82 (98) 91 Room Air 01/27/21 22:23 Room Air 95 01/27/21 20:01 36.9 97 20 143/90 (107) 98 Room Air 01/27/21 20:00 Room Air 01/27/21 18:52 Room Air 95 01/27/21 16:00 36.6 91 20 144/92 (109) 96 Room Air 01/27/21 11:40 36.6 88 18 128/85 (99) 97 Room Air I & O 01/28/21 07:00 Intake Total 1680 ml Output Total 1500 ml Balance 180 ml Capillary Refill : Less Than 3 Seconds General Appearance: No Apparent Distress Respiratory: Lungs Clear Extremity: Non Tender, No Calf Tenderness, No Pedal Edema Neurologic/Psychiatric: Alert, Oriented x3 Skin: Erythema (less to both feet), Other (right foot and second toe with dry dressing in place) Results Lab Laboratory Tests 01/27/21 10:11: Glucometer 173H 01/27/21 15:54: Glucometer 167H 01/27/21 21:04: Glucometer 155H 01/28/21 06:46: Glucometer 158H Microbiology 01/23/21 Blood Culture - Preliminary, Resulted No growth Assessment/Plan Assessment/Plan Assess & Plan/Chief Complaint 1. Acute Bilateral Foot Cellulitis--S/P debridement, continue IV abx through tomorrow then home on oral abx 2. Right 2nd Toe Diabetic Foot Ulcer--S/P debridement 3. Uncontrolled DM II--insulin requiring--on NPH and SSI 4. Hypertension--stable on clonidine and low dose metoprolol Clinical Quality Measures Admission Status Admission Dx 1. Bilateral Foot Cellulitis--admit for IV antibiotics 2. Diabetic Right 2nd Toe Ulcer--wound care 3. Uncontrolled Diabetes mellitus--insulin requiring--start accuchecks with SSI 4. Hypertensio with current hypotension--monitor BP and resume home BP meds when needed MOR PIERRE DO January 28, 2021 09:46
[2021-01-28] MEDS ORDERED: CLN.1T PO (09:54)
[2021-01-28] MEDS ORDERED: METO100T12 PO (09:54)
[2021-01-28] MEDS ORDERED: CEFD300C3 PO (09:54)
[2021-01-28] MEDS ORDERED: METR500T PO (09:54)
[2021-01-28 11:15] VITALS: BP 130/75
[2021-01-28 16:00] VITALS: BP 136/83
[2021-01-28] MEDS: VANCOMYCIN INJECTION 1,500 MG in NS IV 500 ML 500 ML IV SCH (16:11)
[2021-01-28] MEDS: ENOXAPARIN 40 MG/0.4 ML (LOVENOX) SYR SC SCH (18:23)
[2021-01-28 19:40] VITALS: BP 125/75
[2021-01-28] MEDS: ALLOPURINOL 300 MG (ZYLOPRIM) TAB PO SCH (21:11)
[2021-01-28] MEDS: DOXEPIN 25 MG (SINEquan) CAP PO SCH (21:11)
[2021-01-28] MEDS: DULoxetine 30 MG (CYMBALTA) CAP PO SCH (21:11)
[2021-01-28] MEDS: VITAMIN D3 125 MCG (5,000 UNITS) CAPSULE PO SCH (21:11)
[2021-01-28] MEDS: metroNIDAZOLE 500MG/100ML IVPB 100 ML IV SCH (21:11)
[2021-01-28] MEDS: inSUlin NPH (NovoLIN N) 1 UNIT/0.01 ML (CHARGE PER UNIT) SQ SCH (21:12)
[2021-01-29] MEDS: CEFEPIME 1,000 MG/SWFI 10 ML IV PUSH IV SCH ×4 (00:28→06:04)
[2021-01-29 00:41] VITALS: BP 104/67
[2021-01-29] MEDS: RT-ALBUTEROL INHALER HFA (VENTOLIN HFA) 18 GM IH SCH ×3 (02:12→09:51)
[2021-01-29 04:00] VITALS: BP 109/66
[2021-01-29] MEDS: inSUlin ASPART (NovoLOG) 1 UNIT/0.01 ML (CHARGE PER UNIT) SC SCH ×2 (05:09→10:30)
[2021-01-29] MEDS: MULTIVIT W/MINERALS TAB (THERAGRAN M) PO SCH (06:04)
[2021-01-29] MEDS: cloNIDine 0.1 MG (CATAPRES) TAB PO SCH (08:18)
[2021-01-29] MEDS: ESTROGENS CONJ 0.625 MG (PREMARIN) TAB PO SCH (08:18)
[2021-01-29] MEDS: GABAPENTIN 600 MG (NEURONTIN) TAB PO SCH (08:18)
[2021-01-29] MEDS: metroNIDAZOLE 500MG/100ML IVPB 100 ML IV SCH (08:19)
[2021-01-29] MEDS: KETOROLAC 15 MG/ML VIAL IVP PRN (08:30)
[2021-01-29 08:32] VITALS: BP 168/87
--- NOTE | 2021-01-29 08:50 | Discharge Inst-Simple/Standard ---
Discharge Inst-Standard Discharge Medications New, Converted or Re-Newed RX: Transmitted to Pharmacy Patient Instructions/Follow Up Plan of Care/Instructions/FU: Please continue to take your medications as written. Please follow up with Dr Appiah and Dr Celis to follow up this hospital stay. Please continue to do daily dressing changes as Dr Celis instructed. Activity as Tolerated: Yes Discharge Diet: ADA Diet Return to The Hospital For: Fever, chest pain, shortness of breath, worsening redness/swelling/drainage from wounds, if you feel you are getting worse. ZULMA REYES MD January 29, 2021 08:50
--- NOTE | 2021-01-29 09:12 | Discharge Summary ---
Diagnosis/Chief Complaint Date of Admission January 23, 2021 at 22:45 Date of Discharge Discharge Date: January 29, 2021 Primary Care María Elena Appiah DO Discharge Summary Discharge Physical Exam Allergies: Coded Allergies: clindamycin (Verified Allergy, Intermediate, POLYSYSTEMIC ARTHRITIS, 08/23/16) meperidine (Verified Allergy, Intermediate, N/V, 09/28/16) Penicillins (Unverified Allergy, Mild, 06/05/15) Sulfa (Sulfonamide Antibiotics) (Unverified Allergy, Mild, 06/05/15) succinylcholine (Unverified Allergy, Unknown, 06/05/15) Uncoded Allergies: serum dex deficiency (Allergy, Mild, 03/08/09) PSEUDOCHOLINESTERASE (Allergy, Unknown, 06/05/15) Vitals & I&Os Vital Signs Date Time Temp Pulse Resp B/P (MAP) Pulse Ox O2 Delivery O2 Flow Rate FiO2 01/29/21 09:51 95 Room Air 01/29/21 08:32 36.5 93 16 168/87 (114) 01/29/21 04:00 2.00 01/28/21 02:25 90 General Appearance: No Apparent Distress, WD/WN, Obese Respiratory: Lungs Clear, No Respiratory Distress Cardiovascular: Regular Rate, Rhythm, No Murmur Neurologic/Psychiatric: Alert, Oriented x3 Hospital Course Pt was admitted due to bilateral lower extremity cellulitis with a diabetic foot ulcer. She was treated with broad spectrum antibiotics and was seen by Dr Celis, wound care. She underwent debridement by Dr Celis and responded well. She was able to be discharged home. She is to continue on daily dressing changes per Dr Celis's instructions and follow with him in the wound clinic. She is to follow up with Dr Appiah in the next week to follow up this hospital stay. Labs (last 24 hrs) Laboratory Tests 01/28/21 16:27: Glucometer 183H 01/28/21 20:12: Glucometer 171H 01/29/21 05:08: Glucometer 159H 01/29/21 10:18: Glucometer 188H Microbiology 01/23/21 Blood Culture - Preliminary, Resulted No growth Patient resulted labs reviewed. Pending Labs Laboratory Tests 01/29/21 05:08: Glucometer 159 01/29/21 10:18: Glucometer 188 Discussion & Recommendations Discharge Planning: >30 minutes discharge planning Discharge Home Medications: Active Scripts Active Flagyl (Metronidazole) 500 Mg Tablet 500 Mg PO BID Cefdinir 300 Mg Capsule 300 Mg PO BID Clonidine HCl 0.1 Mg Tablet 0.1 Mg PO TID Metoprolol Tartrate 100 Mg Tablet 50 Mg PO BID Reported Furosemide 40 Mg Tablet 40 Mg PO DAILY PRN Hydrocodone-Acetamin 10-325 mg (Hydrocodone/Acetaminophen) 1 Each Tablet 1-2 Each PO QID PRN Novolin R (Insulin Regular, Human) 100 Unit/1 Ml Vial 35 Unit SQ WITH DINNER Novolin N (Insulin NPH Human Isophane) 100 Unit/1 Ml Vial 50 Unit SQ WITH BREAKFAST Hydroxyzine HCl 25 Mg Tablet 25 Mg PO Q4H PRN Baclofen 20 Mg Tablet 20 Mg PO TID PRN Multivitamin 1 Each Tablet 1 Each PO DAILY Vitamin E (Vitamin E Mixed) 400 Unit Capsule 1,200 Unit PO HS TAKES 3 (400UNIT) CAPSULES Vitamin D3 (Cholecalciferol (Vitamin D3)) 125 Mcg Tablet 125 Mcg PO HS Allopurinol 300 Mg Tablet 300 Mg PO HS Gabapentin 600 Mg Tablet 600 Mg PO BID Duloxetine HCl 60 Mg Capsule.dr 60 Mg PO HS Doxepin HCl 25 Mg Capsule 25 Mg PO HS K-Tab ER (Potassium Chloride) 8 Meq Tablet.er 8 Meq PO BID Premarin (Estrogens Conjugated) 1.25 Mg Tab 1.25 Mg PO DAILY Instructions to patient/family Please see electronic discharge instructions given to patient. ZULMA REYES MD January 29, 2021 09:12
[2021-01-29 12:03] VITALS: BP 168/87
== END 2021-01-29 12:07 | disposition home or self-care (01) | DRG 603 ==
LOC: EDUNIT# 21:00 → ER 21:01 → 4TH 22:45
PROVIDERS: ADMIT Family Medicine; ATTEND Family Medicine
DX: L03.116 Cellulitis of left lower limb (principal); L03.115 Cellulitis of right lower limb; E11.621 Type 2 diabetes mellitus with foot ulcer; L97.519 Non-pressure chronic ulcer of other part of right foot with unspecified severity; S90.872A Other superficial bite of left foot, initial encounter; S90.871A Other superficial bite of right foot, initial encounter; S80.872A Other superficial bite, left lower leg, initial encounter; S80.871A Other superficial bite, right lower leg, initial encounter; E11.65 Type 2 diabetes mellitus with hyperglycemia; H54.7 Unspecified visual loss; J06.9 Acute upper respiratory infection, unspecified; I10 Essential (primary) hypertension; F41.9 Anxiety disorder, unspecified; J32.9 Chronic sinusitis, unspecified; Z79.4 Long term (current) use of insulin; Z87.01 Personal history of pneumonia (recurrent); Z79.2 Long term (current) use of antibiotics; Z79.891 Long term (current) use of opiate analgesic; Z79.52 Long term (current) use of systemic steroids; Z88.1 Allergy status to other antibiotic agents; Z88.0 Allergy status to penicillin; Z82.49 Family history of ischemic heart disease and other diseases of the circulatory system; W54.0XXA Bitten by dog, initial encounter
CPT/HCPCS: 36415; 80053; 80202; 81000; 82947; 83605; 84145; 85025; 85652; 86141; 87040; 94640; 94664; 94760; 96365; 96367; 96375

== ENCOUNTER → 2021-11-29 | Outpatient (CLI) | payer SELFPAY ==
[~2021-11-29] MED LIST changes: +ALLO300T2 PO; +BACL20TA PO; +CYCL10TA25 PO; +DICY20TA PO; -DICY20TA10 PO; +DOXE25CA46 PO; +DULO60CA59 PO; +GBPN600T PO; +HYDR-3820 PO; +HYDR-700 PO; +INSN1U SQ; +INSU100V31 SQ; +METO100T12 PO; +METR500T PO; +MULT-1136 PO; +POTA8TAB54 PO; +VITA-272 PO
[2021-11-29 14:00] LABS: BASOPHILS # (AUTO) 0.1 10^3/uL (0.0-0.1); BASOPHILS % (AUTO) 1 % (0-10); EOSINOPHILS # (AUTO) 0.4 10^3/uL (0.0-0.3); EOSINOPHILS % (AUTO) 5 % (0-10); HEMATOCRIT 48 % (35-52); HEMOGLOBIN 15.9 g/dL (11.5-16.0); LYMPHOCYTES # (AUTO) 2.5 10^3/uL (1.0-4.0); LYMPHOCYTES % (AUTO) 30 % (12-44); MEAN CORPUSCULAR HEMOGLOBIN 31 pg (25-34); MEAN CORPUSCULAR HGB CONC 33 g/dL (32-36); MEAN CORPUSCULAR VOLUME 92 fL (80-99); MEAN PLATELET VOLUME 8.9 fL (9.0-12.2); MONOCYTES # (AUTO) 0.6 10^3/uL (0.0-1.0); MONOCYTES % (AUTO) 7 % (0-12); NEUTROPHILS # (AUTO) 4.7 10^3/uL (1.8-7.8); NEUTROPHILS % (AUTO) 56 % (42-75); PLATELET COUNT 272 10^3/uL (130-400); WHITE BLOOD COUNT 8.2 10^3/uL (4.3-11.0)
[2021-11-29 14:23] LABS: ALBUMIN 4.5 GM/DL (3.2-4.5); BILIRUBIN,TOTAL 0.5 MG/DL (0.1-1.0); CALCIUM 10.4 MG/DL (8.5-10.1); CREATININE SERUM 1.37 MG/DL (0.60-1.30); POTASSIUM 4.9 MMOL/L (3.6-5.0); TOTAL PROTEIN 8.1 GM/DL (6.4-8.2)
== END ==
LOC: LAB 13:01
PROVIDERS: ATTEND Family Medicine
DX: E78.2 Mixed hyperlipidemia (principal); I10 Essential (primary) hypertension; E11.65 Type 2 diabetes mellitus with hyperglycemia
CPT/HCPCS: 36415; 80053; 80061; 83036; 85025

== ENCOUNTER 2022-04-16 17:14 | Inpatient (IN) | payer SELFPAY ==
[~2022-04-16] VITALS: Ht 157.5 cm; Wt 104.0 kg
[2022-04-16] MEDS ORDERED: NS IV 1000 ML 1,000 ML IV STA ×2 (17:30→20:38)
[2022-04-16] MEDS ORDERED: LACTATED RINGERS 1,000 ML IV STA ×2 (17:30→17:36)
[2022-04-16] MEDS ORDERED: LACTATED RINGERS 1,000 ML IV ONE (17:31)
--- NOTE | 2022-04-16 17:36 | ED General ---
General Chief Complaint: Exposure Stated Complaint: LOC,DM Nursing Triage Note: PT HAD FALLEN ASLEEP IN HER CAR FOR ABOUT 3 HRS TODAY FROM 0206-2700. EMS WAS CALLED AND CHECKED GLUCOSE, 98, AND GAVE 1 LITER OF FLUID, PT REFUSED TRANSPORT. PT DIABETIC AND FAMILY STATES STILL CONFUSED. MOVED A LOT OF THINGS YESTERDAY AND DROVE A LOT WITHOUT EATING MUCH. Source of Information: Patient Exam Limitations: No Limitations History of Present Illness Date Seen by Provider: Apr 16, 2022 Time Seen by Provider: 17:37 Initial Comments Patient is a 56-year-old female who presents the ED for generalized weakness fatigue, change in mental status. According to patient after anabaptist she sat in her car from about 1215-3 30 today. She was found in her car passed out. Difficult to arouse when family came to the scene. She states she was exhausted and fatigue while spending most of the day yesterday working moving furniture. She did not eat or drink much since yesterday. EMS was at the scene gave patient a liter of fluid but did found to be hypotensive and slightly hypoxic. On arrival she is alert and orient x3. Patient only complaint is dizziness. She denies chest pain, abdominal pain, vomiting, diarrhea fever, chills. She was placed on 2 L secondary to oxygen 89 to 91% on room air. She states she had some mild back discomfort from sleeping in her car. She denies any falls or trauma. She was able to urinate today. Blood sugar was 144 on arrival. She is type II diabetic currently on insulin. Did not take her insulin yesterday. Denies headache, unilateral muscle weakness or sensory changes, facial droop, vomiting, diarrhea, fever, chills Allergies and Home Medications Allergies Coded Allergies: clindamycin (Verified Allergy, Intermediate, POLYSYSTEMIC ARTHRITIS, 08/23/16) meperidine (Verified Allergy, Intermediate, N/V, 09/28/16) Penicillins (Unverified Allergy, Mild, 06/05/15) Sulfa (Sulfonamide Antibiotics) (Unverified Allergy, Mild, 06/05/15) succinylcholine (Unverified Allergy, Unknown, 06/05/15) Uncoded Allergies: serum dex deficiency (Allergy, Mild, 03/08/09) PSEUDOCHOLINESTERASE (Allergy, Unknown, 06/05/15) Patient Home Medication List Home Medication List Reviewed: Yes Allopurinol (Allopurinol) 300 Mg Tablet, 150 MG PO HS Prescribed by: MOR PIERRE on 04/18/22 0838 Atorvastatin Calcium (Atorvastatin Calcium) 20 Mg Tablet, 20 MG PO HS, (Reported) Entered as Reported by: CARMEN MILLARD on 04/17/221536 Last Action: Reviewed Cholecalciferol (Vitamin D3) (Vitamin D3) 125 Mcg (5000 Unit) Tablet, 125 MCG PO DAILY, (Reported) Entered as Reported by: CELSA CHINCHILLA on 01/24/211441 Last Action: Reviewed Clonidine HCl (Clonidine HCl) 0.1 Mg Tablet, 0.2 MG PO BID, (Reported) Entered as Reported by: CARMEN MILLARD on 04/17/221536 Last Action: Reviewed Cyclobenzaprine HCl (Cyclobenzaprine HCl) 10 Mg Tablet, 10 MG PO TID PRN for MUSCLE SPASMS, (Reported) Entered as Reported by: CARMEN MILLARD on 04/17/221536 Last Action: Reviewed Doxepin HCl (Doxepin HCl) 25 Mg Capsule, 25 MG PO HS, (Reported) Entered as Reported by: CELSA CHINCHILLA on 01/24/211441 Last Action: Reviewed Duloxetine HCl (Duloxetine HCl) 60 Mg Capsule.dr, 60 MG PO HS, (Reported) Entered as Reported by: CELSA CHINCHILLA on 01/24/211441 Last Action: Converted Gabapentin (Gabapentin) 600 Mg Tablet, 600 MG PO HS, (Reported) Entered as Reported by: CELSA CHINCHILLA on 01/24/211441 Last Action: Continued Hydrocodone/Acetaminophen (Hydrocodone-Acetamin 10-325 mg) 10 Mg-325 Mg Tablet, 1-2 EACH PO QID PRN for PAIN-MODERATE (5-7), (Reported) Entered as Reported by: CARMEN MILLARD on 04/17/221536 Last Action: Reviewed Hydroxyzine HCl (Hydroxyzine HCl) 25 Mg Tablet, 25 MG PO Q8H PRN for ITCHING, (Reported) Entered as Reported by: CELSA CHINCHILLA on 01/24/211441 Last Action: Reviewed Insulin NPH Human Isophane (Novolin N) 100 Unit/Ml Vial, 85 UNIT SQ 0800 W/MEAL, (Reported) Entered as Reported by: CELSA CHINCHILLA on 01/24/211441 Last Action: Reviewed Insulin Regular, Human (Novolin R) 100 Unit/Ml Vial, 80 UNIT SQ 1800 W/DINNER, (Reported) Entered as Reported by: CELSA CHINCHILLA on 01/24/211441 Last Action: Reviewed Metoprolol Tartrate (Metoprolol Tartrate) 100 Mg Tablet, 100 MG PO BID, (Reported) Entered as Reported by: CARMEN MILLARD on 04/17/221536 Last Action: Reviewed Montelukast Sodium (Montelukast Sodium) 10 Mg Tablet, 10 MG PO HS, (Reported) Entered as Reported by: CARMEN MILLARD on 04/17/221536 Last Action: Reviewed Vitamin E Mixed (Vitamin E) 400 Unit Capsule, 400 UNIT PO DAILY, (Reported) Entered as Reported by: CELSA CHINCHILLA on 01/24/211441 Last Action: Reviewed Discontinued Medications Baclofen (Baclofen) 20 Mg Tablet, 20 MG PO TID PRN for MUSCLE SPASMS, (Reported) Discontinued Reason: No Longer Taking Entered as Reported by: CELSA CHINCHILLA on 01/24/211441 Last Action: Discontinued Cefdinir (Cefdinir) 300 Mg Capsule, 300 MG PO BID Discontinued Reason: No Longer Taking Prescribed by: MOR IPERRE on 01/28/21953 Last Action: Discontinued Clonidine HCl (Clonidine HCl) 0.1 Mg Tablet, 0.1 MG PO TID Discontinued Reason: No Longer Taking Prescribed by: MOR PIERRE on 01/28/21953 Last Action: Discontinued Estrogens Conjugated (Premarin) 1.25 Mg Tab, 1.25 MG PO DAILY, (Reported) Discontinued Reason: No Longer Taking Entered as Reported by: CELSA CHINCHILLA on 01/24/211441 Last Action: Discontinued Furosemide (Furosemide) 40 Mg Tablet, 40 MG PO DAILY PRN for WATER RETENTION, (Reported) Discontinued Reason: No Longer Taking Entered as Reported by: CELSA CHINCHILLA on 01/24/211441 Last Action: Discontinued Hydrocodone/Acetaminophen (Hydrocodone-Acetamin 10-325 mg) 1 Each Tablet, 1-2 EACH PO QID PRN for PAIN-MODERATE (5-7), (Reported) Discontinued Reason: No Longer Taking Entered as Reported by: CELSA CHINCHILLA on 01/24/211441 Last Action: Discontinued Lisinopril (Lisinopril) 40 Mg Tablet, 40 MG PO DAILY, (Reported) Entered as Reported by: CARMEN MILLARD on 04/17/221536 Last Action: Reviewed Metoprolol Tartrate (Metoprolol Tartrate) 100 Mg Tablet, 50 MG PO BID Discontinued Reason: No Longer Taking Prescribed by: MOR PIERRE on 01/28/21953 Last Action: Discontinued Metronidazole (Flagyl) 500 Mg Tablet, 500 MG PO BID Discontinued Reason: No Longer Taking Prescribed by: MOR PIERRE on 01/28/21953 Last Action: Discontinued Multivitamin (Multivitamin) 1 Each Tablet, 1 EACH PO DAILY, (Reported) Discontinued Reason: No Longer Taking Entered as Reported by: CELSA CHINCHILLA on 01/24/211441 Last Action: Discontinued Potassium Chloride (K-Tab ER) 8 Meq Tablet.er, 8 MEQ PO BID, (Reported) Discontinued Reason: No Longer Taking Entered as Reported by: CELSA CHINCHILLA on 01/24/211441 Last Action: Discontinued Potassium Chloride (Potassium Chloride) 8 Meq Capsule.er, 8 MEQ PO BID, (Re ported) Entered as Reported by: CARMEN MILLARD on 04/17/221536 Last Action: Reviewed Triamterene/Hydrochlorothiazid (Triamterene-Hctz 75-50 mg Tab) 75 Mg-50 Mg Tablet, 1 EACH PO DAILY, (Reported) Entered as Reported by: CARMEN MILLARD on 04/17/221536 Last Action: Reviewed Review of Systems Review of Systems Constitutional: No chills; malaise, weakness EENTM: No blurred vision, No double vision Respiratory: No cough, No short of breath Cardiovascular: No chest pain Gastrointestinal: No abdominal pain, No diarrhea, No nausea, No vomiting Genitourinary: No decreased output, No discharge Musculoskeletal: back pain; No joint pain Skin: No change in color, No change in hair/nails All Other Systems Reviewed Negative Unless Noted: Yes Past Tocakda-Eojzos-Wdgyrj Hx Immunizations Up To Date Tetanus Booster (TDap): More than 5yrs Seasonal Allergies Seasonal Allergies: Yes Past Medical History Surgeries: Yes (BENIGN TUMOR REMOVED FROM NECK X2, LESION TO FOREARM, SKIN LESTIONS) Adenoidectomy, Hysterectomy, Oophorectomy, Tonsillectomy Respiratory: Yes Pneumonia Cardiac: Yes Hypertension Neurological: Yes Headaches /Migraines 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 Disorders: No [employer] History: Hysterectomy, Menopausal Sexually Transmitted Disease: No HIV/AIDS: No Genitourinary: Yes Bladder Infection Gastrointestinal: No Musculoskeletal: Yes Chronic Back Pain, Gout Endocrine: Yes Diabetes, Insulin dep HEENT: No Loss of Vision: Bilateral Hearing Impairment: Denies Cancer: Yes Skin Did You Recieve Any Treatments: Yes What Type of Treatment Did You: Surgical Intervention Psychosocial: Yes Sleep Difficulties, Anxiety Integumentary: No Blood Disorders: No Adverse Reaction/Blood Tranf: No Family Medical History FH: CAD (coronary artery disease) FH: Remedios Gehrig's disease Hypertension G8 BROTHER No Pertinent Family Hx Physical Exam Vital Signs Vital Signs - First Documented 04/16/22 17:21 Temp 36.0 Pulse 87 Resp 18 B/P (MAP) 80/57 (65) O2 Delivery Room Air Capillary Refill : Height, Weight, BMI Height: 5'4.00" Weight: 200lbs. 0.0oz. 90.201824wn; 35.00 BMI Method:Stated General Appearance: No Apparent Distress, WD/WN Eyes: Bilateral Eye Normal Inspection, Bilateral Eye PERRL, Bilateral Eye Abnormal EOM HEENT: PERRL/EOMI, TMs Normal, Normal ENT Inspection, Pharynx Normal Neck: Full Range of Motion, Normal Inspection, Non Tender, Supple Respiratory: Chest Non Tender, Lungs Clear, Normal Breath Sounds, No Accessory Muscle Use Cardiovascular: Regular Rate, Rhythm, No Edema, No JVD Gastrointestinal: Normal Bowel Sounds, No Organomegaly, No Pulsatile Mass, Non Tender, Soft Back: Normal Inspection, No CVA Tenderness, No Vertebral Tenderness Extremity: Normal Capillary Refill, Normal Inspection, Normal Range of Motion, Non Tender Skin: Normal Color, Warm/Dry Focused Exam Lactate Level 04/16/22 17:50: Lactic Acid Level 1.67 Lactic Acid Level Laboratory Tests Test 04/16/22 17:50 Lactic Acid Level 1.67 MMOL/L (0.50-2.00) Procedures/Interventions Lumen: triple Central Line Procedure: betadine prep Position: femoral (L) Anesthesia: Lidocaine Volume Anesthetic (ccs): 4 Complications: none Post Position: sutured, good blood return, position confirmed w/ CXR Progress/Results/Core Measures Suspected Sepsis SIRS Temperature: Pulse: 87 Respiratory Rate: 18 Laboratory Tests 04/16/22 17:32: White Blood Count 13.9H Blood Pressure 80 /57 Mean: 65 04/16/22 17:50: Lactic Acid Level 1.67 Laboratory Tests 04/16/22 17:32: INR Comment 1.0, Platelet Count 236, Total Bilirubin 0.5 Results/Orders Lab Results Laboratory Tests Test 04/16/22 17:24 04/16/22 17:32 04/16/22 17:40 04/16/22 17:50 Range/Units Glucometer 142 H 70-110 MG/DL White Blood Count 13.9 H 4.3-11.0 10^3/uL Red Blood Count 4.26 3.80-5.11 10^6/uL Hemoglobin 13.4 11.5-16.0 g/dL Hematocrit 41 35-52 % Mean Corpuscular Volume 95 80-99 fL Mean Corpuscular Hemoglobin 32 25-34 pg Mean Corpuscular Hemoglobin Concent 33 32-36 g/dL Red Cell Distribution Width 14.0 10.0-14.5 % Platelet Count 236 130-400 10^3/uL Mean Platelet Volume 8.8 L 9.0-12.2 fL Immature Granulocyte % (Auto) 1 % Neutrophils (%) (Auto) 76 H 42-75 % Lymphocytes (%) (Auto) 14 12-44 % Monocytes (%) (Auto) 6 0-12 % Eosinophils (%) (Auto) 3 0-10 % Basophils (%) (Auto) 0 0-10 % Neutrophils # (Auto) 10.5 H 1.8-7.8 10^3/uL Lymphocytes # (Auto) 1.9 1.0-4.0 10^3/uL Monocytes # (Auto) 0.9 0.0-1.0 10^3/uL Eosinophils # (Auto) 0.4 H 0.0-0.3 10^3/uL Basophils # (Auto) 0.1 0.0-0.1 10^3/uL Immature Granulocyte # (Auto) 0.1 0.0-0.1 10^3/uL Prothrombin Time 13.1 12.2-14.7 SEC INR Comment 1.0 0.8-1.4 Activated Partial Thromboplast Time 28 24-35 SEC Sodium Level 137 135-145 MMOL/L Potassium Level 6.2 H 3.6-5.0 MMOL/L Chloride Level 102 98-107 MMOL/L Carbon Dioxide Level 22 21-32 MMOL/L Anion Gap 13 5-14 MMOL/L Blood Urea Nitrogen 50 H 7-18 MG/DL Creatinine 3.73 H 0.60-1.30 MG/DL Estimat Glomerular Filtration Rate 14 BUN/Creatinine Ratio 13 Glucose Level 144 H 70-105 MG/DL Calcium Level 9.5 8.5-10.1 MG/DL Corrected Calcium 9.2 8.5-10.1 MG/DL Magnesium Level 1.8 1.6-2.4 MG/DL Total Bilirubin 0.5 0.1-1.0 MG/DL Aspartate Amino Transf (AST/SGOT) 25 5-34 U/L Alanine Aminotransferase (ALT/SGPT) 27 0-55 U/L Alkaline Phosphatase 92 40-136 U/L Total Creatine Kinase 223 H 29-168 U/L Troponin I < 0.028 <0.028 NG/ML B-Type Natriuretic Peptide < 10.0 <100.0 PG/ML Total Protein 7.3 6.4-8.2 GM/DL Albumin 4.4 3.2-4.5 GM/DL Influenza Type A (RT-PCR) Not Detected Not Detecte Influenza Type B (RT-PCR) Not Detected Not Detecte SARS-CoV-2 RNA (RT-PCR) Not Detected Not Detecte Lactic Acid Level 1.67 0.50-2.00 MMOL/L Test 04/16/22 18:23 Range/Units Urine Color YELLOW Urine Clarity CLEAR Urine pH 5.0 5-9 Urine Specific [place] 1.025 H 1.016-1.022 Urine Protein NEGATIVE NEGATIVE Urine Glucose (UA) NEGATIVE NEGATIVE Urine Ketones TRACE H NEGATIVE Urine Nitrite NEGATIVE NEGATIVE Urine Bilirubin NEGATIVE NEGATIVE Urine Urobilinogen 0.2 < = 1.0 MG/DL Urine Leukocyte Esterase NEGATIVE NEGATIVE Urine RBC (Auto) NEGATIVE NEGATIVE Urine RBC NONE /HPF Urine WBC NONE /HPF Urine Squamous Epithelial Cells 2-5 /HPF Urine Crystals NONE /LPF Urine Bacteria FEW H /HPF Urine Casts PRESENT /LPF Urine Hyaline Casts 5-10 H /LPF Urine Mucus SMALL H /LPF Urine Culture Indicated YES Micro Results Microbiology 04/16/22 Urine Culture - Final, Complete NO GROWTH My Orders Orders - SMITH,SON A PA Ns Iv 1000 Ml (Sodium Chloride 0.9%) (04/16/22 17:30) Cbc With Automated Diff (04/16/22 17:30) Comprehensive Metabolic Panel (04/16/22 17:30) Magnesium (04/16/22 17:30) Troponin I Latanya (04/16/22 17:30) Bnp Latanya (04/16/22 17:30) Chest 1 View, Ap/Pa Only (04/16/22 17:30) Covid 19 Inhouse Test (04/16/22 17:30) Influenza A And B By Pcr (04/16/22 17:30) Urinalysis (04/16/22 17:30) Lactic Acid Analyzer (04/16/22:30) Creatine Kinase (04/16/22 17:30) Lactated Ringers (Lr 1000 Ml Iv Solution (04/16/22 17:30) Ct Head Wo (04/16/22 17:30) Partial Thromboplastin Time (04/16/22 17:34) Protime With Inr (04/16/22 17:34) Lactated Ringers (Lr 1000 Ml Iv Solution (04/16/22 17:36) Ekg Tracing (04/16/22 17:40) Insulin (Regular) Human (Novolin R (Per (04/16/22 18:00) D50w (Emergency) Syringe (Dextrose 50% 5 (04/16/22 18:00) Lactated Ringers (Lr 1000 Ml Iv Solution (04/16/22 18:30) Lactated Ringers (Lr 1000 Ml Iv Solution (04/16/22 18:27) Urine Culture (04/16/22 18:23) Ed Admission (Communication) (04/16/22 19:46) Medications Given in ED Vital Signs/I&O 04/16/22 17:21 Temp 36.0 Pulse 87 Resp 18 B/P (MAP) 80/57 (65) O2 Delivery Room Air Capillary Refill : Blood Pressure Mean: 65 Departure Communication (PCP) Patient on arrival was alert and orient x3. At time she appeared to be somno lent. She states she did not get the bed till about 4 AM and fell asleep in her car for at least 2 to 3 hours. She was found to be confused and severely hypotensive. Patient appears in acute kidney injury. She had an elevated potassium at 6.2. No EKG changes. Patient was given 3 L of IV fluid here in the ER. 2 lines were started initially. Initial blood pressure was around 82/54 and fluctuated between 90 and 110 systolic. She remained having a map over 65. She started to decrease in her blood pressure after the 3 L. Was considering starting patient on pressors and placed a central line in her left femoral groin. Successful placement. her blood pressure continued to improve. She was given 1/4 L after talking to hospitalist Dr. Flor normal saline at 125 ml/hr. slight elevated white blood count. Cardiac work-up unremarkable. CT scan head unremarkable. Chest x-ray was negative for pneumonia. No evidence of infection. Concerning for hypovolemic shock and acute kidney injury. She remained alert and oriented throughout most of her stay. She was found to be slightly hypoxic. History of sleep apnea. Was placed on 2 L secondary to oxygen level in the upper 80s. Patient will be admitted to the ICU for further evaluation. Patient was accepted by Dr. Flor. Impression Primary Impression: FABIENNE (acute kidney injury) Additional Impressions: Hypotension Hypovolemic shock Disposition: ADMITTED INPATIENT Condition: Stable Admissions Decision to Admit Reason: Admit from ER (General) Decision to Admit/Date: Apr 16, 2022 Time/Decision to Admit Time: 19:22 Departure-Patient Inst. Referrals: MOR PIERRE DO (PCP/Family) Primary Care Physician Scripts Allopurinol (Allopurinol) 300 Mg Tablet 150 MG PO HS, #30 TAB Prov: MOR PIERRE DO 04/18/22 SON SMITH Apr 16, 2022 17:36
[2022-04-16 17:44] LABS: BASOPHILS # (AUTO) 0.1 10^3/uL (0.0-0.1); BASOPHILS % (AUTO) 0 % (0-10); EOSINOPHILS # (AUTO) 0.4 10^3/uL (0.0-0.3); EOSINOPHILS % (AUTO) 3 % (0-10); HEMATOCRIT 41 % (35-52); HEMOGLOBIN 13.4 g/dL (11.5-16.0); LYMPHOCYTES # (AUTO) 1.9 10^3/uL (1.0-4.0); LYMPHOCYTES % (AUTO) 14 % (12-44); MEAN CORPUSCULAR HEMOGLOBIN 32 pg (25-34); MEAN CORPUSCULAR HGB CONC 33 g/dL (32-36); MEAN CORPUSCULAR VOLUME 95 fL (80-99); MEAN PLATELET VOLUME 8.8 fL (9.0-12.2); MONOCYTES # (AUTO) 0.9 10^3/uL (0.0-1.0); MONOCYTES % (AUTO) 6 % (0-12); NEUTROPHILS # (AUTO) 10.5 10^3/uL (1.8-7.8); NEUTROPHILS % (AUTO) 76 % (42-75); PLATELET COUNT 236 10^3/uL (130-400); WHITE BLOOD COUNT 13.9 10^3/uL (4.3-11.0)
[2022-04-16 17:49] LABS: ALBUMIN 4.4 GM/DL (3.2-4.5); CHLORIDE 102 MMOL/L (98-107); POTASSIUM 6.2 MMOL/L (3.6-5.0); SODIUM 137 MMOL/L (135-145)
[2022-04-16 17:50] LABS: CALCIUM 9.5 MG/DL (8.5-10.1); PROTHROMBIN TIME PATIENT 13.1 SEC (12.2-14.7)
[2022-04-16 17:51] LABS: GLUCOSE 144 MG/DL (70-105); TOTAL PROTEIN 7.3 GM/DL (6.4-8.2)
[2022-04-16 17:52] LABS: CARBON DIOXIDE 22 MMOL/L (21-32)
[2022-04-16 17:53] LABS: BILIRUBIN,TOTAL 0.5 MG/DL (0.1-1.0)
[2022-04-16 17:55] LABS: ALKALINE PHOSPHATASE 92 U/L (40-136); CREATININE SERUM 3.73 MG/DL (0.60-1.30); GFR ESTIMATED 14
[2022-04-16 17:56] LABS: BUN/CREATININE RATIO 13
[2022-04-16 17:58] LABS: ALANINE AMINOTRANSFERASE 27 U/L (0-55); CREATINE KINASE 223 U/L (29-168); MAGNESIUM 1.8 MG/DL (1.6-2.4)
[2022-04-16] MEDS ORDERED: inSUlin (REGULAR) HUMAN 1 UNIT/0.01 ML (CHARGE PER UNIT) IV ONE (18:00)
[2022-04-16] MEDS ORDERED: DEXTROSE 50% 50 ML (IMS) SYR IV ONE (18:00)
[2022-04-16] MEDS ORDERED: LACTATED RINGERS 1,000 ML IV SCH ×2 (18:27→18:30)
[2022-04-16 18:29] LABS: BILIRUBIN,URINE NEGATIVE (NEGATIVE); CLARITY,URINE CLEAR; COLOR,URINE YELLOW; GLUCOSE, URINE (UA) NEGATIVE (NEGATIVE); KETONES,URINE TRACE (NEGATIVE); LEUKOCYTE ESTERASE ,URINE NEGATIVE (NEGATIVE); NITRITE,URINE NEGATIVE (NEGATIVE); PROTEIN,URINE NEGATIVE (NEGATIVE)
[2022-04-16] MEDS ORDERED: inSUlin (REGULAR) HUMAN 1 UNIT/0.01 ML (CHARGE PER UNIT) ONE (18:38)
[2022-04-16] MEDS ORDERED: DEXTROSE 50% 50 ML (IMS) SYR ONE (18:40)
[2022-04-16 18:46] LABS: BACTERIA,URINE FEW /HPF
--- NOTE | 2022-04-16 19:33 | Diagnostic Imaging Report ---
INDICATION: Altered mental status. Hypoglycemia. History of diabetes. TECHNIQUE: Routine non contrast-enhanced axial images were obtained from the skull base to the vertex. Auto Exposure Controls were utilized during the CT exam to meet ALARA standards for radiation dose reduction. COMPARISON: 05/19/2019. FINDINGS: The ventricles and cortical sulci are normal in size and contour. There is no midline shift or mass-effect. No acute intra-axial hemorrhage is seen. There are no abnormal areas of increased or decreased density to suggest acute hemorrhage or edema. No extra-axial masses or collections are present. The bony calvarium is intact. The visualized paranasal sinuses are unremarkable. The mastoid air cells are clear. IMPRESSION: No acute intracranial abnormality. No CT evidence of mass, acute infarct or intracranial hemorrhage. Dictated by: Dictated on workstation # [id number]
--- NOTE | 2022-04-16 19:37 | Diagnostic Imaging Report ---
INDICATION: Altered mental status. Hypoglycemia. History of diabetes. COMPARISON: 03/24/2016. FINDINGS: Single frontal radiographic view of the chest was obtained. Cardiac silhouette appears enlarged. Pulmonary vasculature, however, is within normal limits. The left lung base is obscured, but lungs are otherwise clear. No large effusion or pneumothorax is seen. Osseous structures show no gross acute abnormality. IMPRESSION: 1. Cardiac silhouette appears mildly enlarged, but this may be exaggerated by portable technique. 2. Left lung base is obscured by breast tissue and left heart border, but lungs are otherwise clear. Dictated by: Dictated on workstation # [id number]
[2022-04-16] MEDS ORDERED: BISACODYL 10 MG SUPP (DULCOLAX) PR PRN (21:30)
[2022-04-16] MEDS ORDERED: MELATONIN 3 MG TABLET PO PRN (21:30)
[2022-04-16] MEDS ORDERED: diphenhydrAMINE 50 MG/ML INJ (BENADRYL) IVP PRN (21:30)
[2022-04-16] MEDS ORDERED: polyethylene glycoL POWDER 17 GM (MIRALAX) PACK PO PRN (21:30)
[2022-04-16] MEDS ORDERED: diphenhydrAMINE 25 MG TAB (BENADRYL) PO PRN (21:30)
[2022-04-16] MEDS ORDERED: NS IV 500 ML 500 ML IV PRN (21:30)
[2022-04-16] MEDS ORDERED: CALCIUM CARBONATE 500 MG (TUMS) TAB.CHEW PO PRN (21:30)
[2022-04-16] MEDS ORDERED: MILK OF MAGNESIA 400 MG/5 ML 30 ML UDC PO PRN (21:30)
[2022-04-16] MEDS ORDERED: LACTULOSE SYRUP 10GM/15ML (ENULOSE) 30ML UDC PO PRN (21:30)
[2022-04-16] MEDS ORDERED: ACETAMINOPHEN 325 MG TABLET PO PRN (21:30)
[2022-04-16] MEDS ORDERED: ANTACID SUSP 30 ML UDC (MYLANTA) PO PRN (21:30)
[2022-04-16] MEDS ORDERED: ONDANSETRON 4 MG (ZOFRAN) ORAL DISSOLVE TAB PO PRN (21:30)
[2022-04-16] MEDS ORDERED: ONDANSETRON 4 MG/2 ML (SDV) Z0FRAN IV PRN (21:30)
--- NOTE | 2022-04-16 21:39 | Tele-ICU Progress Note ---
Progress Note 56 y/o woman , with Hx of HTN, DM2, CHF, c/o fatigue. Low PO intake. Was found to be hypotensive and hypoxic. In ED BP 80/57. Labs , cxr reviewed. U/A negative, LA WNL 1. Hypovolemic shock , 2/2 poor PO intake and is on Lasix 2. FABIENNE/CKD with hyperkalemia 3. DM2 Plan IVFS F/U LABS Hold home Lasix Blood sugar control. Interventions Minor-Other: Hypovolemia, FABIENNE/CKD , hyperkalemia Focused Exam Lactate Level 04/16/22 17:50: Lactic Acid Level 1.67 Height, Weight, BMI Height: 5'4.00" Weight: 200lbs. 0.0oz. 90.737110mo; 35.00 BMI Method:Stated Lactic Acid Level Laboratory Tests Test 04/16/22 17:50 Lactic Acid Level 1.67 MMOL/L (0.50-2.00) EMILY HAMILTON MD Apr 16, 2022 21:39
--- NOTE | 2022-04-16 21:42 | Diagnostic Imaging Report ---
INDICATION: Left femoral central line placement COMPARISON: 03/24/2016. FINDINGS: Two frontal supine radiographic views of the abdomen were obtained and demonstrate nondistended loops of small bowel. There is no large collection of free peritoneal air. Moderate air and stool are seen scattered throughout the colon. Indwelling left-sided central venous catheter is identified. Central tip terminates over the left S2 region. No unexpected extraosseous calcifications or radiopaque foreign bodies are seen. Bony structures show no gross acute abnormalities. IMPRESSION: 1. Nonobstructed small bowel gas pattern. 2. Moderate colonic air and stool. Please correlate for constipation 3. Indwelling left-sided pelvic central venous catheter. Dictated by: Dictated on workstation # [id number]
[2022-04-16] MEDS ORDERED: ENOXAPARIN INJECTION 30 MG/0.3 ML SYR SC SCH (22:00)
[2022-04-16] MEDS: NS IV 1000 ML 1,000 ML IV SCH (22:28)
[2022-04-16 22:41] VITALS: BP 108/60
[2022-04-16] MEDS ORDERED: RT-ALBUTEROL SULF 2.5 MG/3 ML PRE-MIX VIAL INH PRN (22:45)
[2022-04-16 22:53] LABS: POTASSIUM 5.6 MMOL/L (3.6-5.0)
[2022-04-16 22:54] LABS: CALCIUM 8.8 MG/DL (8.5-10.1)
[2022-04-16 22:58] LABS: CREATININE SERUM 2.72 MG/DL (0.60-1.30)
--- NOTE | 2022-04-16 23:08 | Tele-ICU Progress Note ---
Progress Note K at 5.6. Kayexalate 5 g x 1 ordered. Pt with FABIENNE/CKD. Lokelma not in formulary. Interventions Minor-Other: Hyperkalemia. Focused Exam Lactate Level 04/16/22 17:50: Lactic Acid Level 1.67 Height, Weight, BMI Height: 5'4.00" Weight: 200lbs. 0.0oz. 90.938242wl; 42.65 BMI Method:Stated EMILY HAMILTON MD Apr 16, 2022 23:08
[2022-04-16] MEDS ORDERED: SODIUM POLYSTYRENE POWDER 15 GM BOTTLE PO ONE (23:15)
[2022-04-16] MEDS ORDERED: SODIUM POLYSTYRENE POWDER 15 GM BOTTLE ONE (23:47)
--- NOTE | 2022-04-17 02:05 | Tele-ICU Progress Note ---
Progress Note c/o severe back and shoulder pain , Takes [place] at home, redquesting for pain meds. [place] 5 mg x 1 ordered. Interventions Minor-Other: pain Focused Exam Lactate Level 04/16/22 17:50: Lactic Acid Level 1.67 Height, Weight, BMI Height: 5'4.00" Weight: 200lbs. 0.0oz. 90.790444vp; 42.65 BMI Method:Stated EMILY HAMILTON MD Apr 17, 2022 02:05
[2022-04-17] MEDS ORDERED: HYDROcodone/APAP 5 MG/325 MG (LORTAB) TAB PO ONE (02:15)
[2022-04-17 03:52] LABS: HEMATOCRIT 35 % (35-52); HEMOGLOBIN 11.3 g/dL (11.5-16.0); MEAN CORPUSCULAR HEMOGLOBIN 31 pg (25-34); MEAN CORPUSCULAR HGB CONC 33 g/dL (32-36); MEAN CORPUSCULAR VOLUME 95 fL (80-99); PLATELET COUNT 173 10^3/uL (130-400); WHITE BLOOD COUNT 8.9 10^3/uL (4.3-11.0)
[2022-04-17 04:07] LABS: POTASSIUM 4.8 MMOL/L (3.6-5.0)
[2022-04-17 04:08] LABS: CALCIUM 8.7 MG/DL (8.5-10.1)
[2022-04-17 04:12] LABS: PHOSPHORUS 4.7 MG/DL (2.3-4.7)
[2022-04-17 04:13] LABS: CREATININE SERUM 2.15 MG/DL (0.60-1.30)
[2022-04-17 04:15] LABS: MAGNESIUM 1.6 MG/DL (1.6-2.4)
[2022-04-17] MEDS: MAGNESIUM 1 GM/100 ML IVPB 100 ML IV SCH ×3 (05:42→06:59)
[2022-04-17] MEDS: inSUlin ASPART (NovoLOG) 1 UNIT/0.01 ML (CHARGE PER UNIT) SC SCH ×4 (05:43→20:15)
[2022-04-17] MEDS: NS IV 1000 ML 1,000 ML IV SCH ×3 (05:44→20:37)
[2022-04-17] MEDS: KCL 20 MEQ TAB (K-DUR) PO SCH (06:59)
[2022-04-17] MEDS: POTASSIUM CL 10MEQ/50ML IVPB 50 ML IV SCH (06:59)
--- NOTE | 2022-04-17 08:04 | Tele-ICU Progress Note ---
Subjective Date Seen by a Provider: Apr 17, 2022 Time Seen by a Provider: 07:59 Subjective/Events-last exam 56 y/o woman , with Hx of HTN, DM2, CHF, c/o fatigue. Low PO intake. Was found to be hypotensive and hypoxic.not on pressors In ED BP 80/57. now 104/47 Labs , cxr reviewed. U/A negative, LA WNL 1. Hypovolemic shock , 2/2 poor PO intake and is on Lasix 2. FABIENNE/CKD with hyperkalemia Potassium was 5.6, now 4.8, got Kayexalate Cr was 2.72, now 2.15 3. DM2 Plan IVFS F/U LABS Hold home Lasix Blood sugar control. Interventions Minor-Other: Hypovolemia, FABIENNE/CKD , hyperkalemia KUB, CXR and CT head ok Sepsis Event Evaluation Height, Weight, BMI Height: 5'4.00" Weight: 200lbs. 0.0oz. 90.635495bl; 42.48 BMI Method:Stated Focused Exam Lactate Level 04/16/22 17:50: Lactic Acid Level 1.67 Exam Exam Patient acknowledged, consented, and participated in this virtual visit which was conducted using real time audio/video Vital Signs Date Time Temp Pulse Resp B/P (MAP) Pulse Ox O2 Delivery O2 Flow Rate FiO2 04/17/22 06:00 105 18 104/47 96 Nasal Cannula 2.00 04/17/22 05:00 102 14 103/67 95 Nasal Cannula 2.00 04/17/22 04:00 98 Nasal Cannula 2.00 04/17/22 04:00 36.4 04/17/22 04:00 104 16 100/62 96 Nasal Cannula 2.00 04/17/22 03:00 100 13 119/72 98 Nasal Cannula 2.00 04/17/22 02:00 93 8 114/79 97 Nasal Cannula 2.00 04/17/22 01:00 90 04/17/22 01:00 90 11 100/62 98 Nasal Cannula 2.00 04/17/22 00:00 89 16 99/66 98 Nasal Cannula 2.00 04/17/22 00:00 36.8 04/16/22 23:59 98 Nasal Cannula 2.00 04/16/22 23:00 90 9 90/69 99 Nasal Cannula 2.00 04/16/22 22:45 89 9 91/51 99 Nasal Cannula 2.00 04/16/22 22:41 36.0 92 98 24 04/16/22 22:30 93 12 96/48 99 Nasal Cannula 2.00 04/16/22 22:15 92 108/60 98 Nasal Cannula 2.00 04/16/22 22:00 92 17 86/76 98 Nasal Cannula 2.00 04/16/22 21:52 89 13 82/50 100 Nasal Cannula 2.00 04/16/22 21:45 90 9 83/48 Nasal Cannula 2.00 04/16/22 21:30 90 11 101/85 Nasal Cannula 2.00 04/16/22 21:30 98 Nasal Cannula 2.00 04/16/22 21:30 36.5 04/16/22 21:23 95 04/16/22 21:18 98 8 102/63 95 Nasal Cannula 2.00 04/16/22 20:50 89 16 88/54 97 Room Air 04/16/22 17:21 36.0 87 18 80/57 (65) Room Air I & O 04/17/22 07:00 Intake Total 4860 ml Output Total 2030 ml Balance 2830 ml Height & Weight Height: 5'4.00" Weight: 200lbs. 0.0oz. 90.860319ig; 42.48 BMI Method:Stated General Appearance: No Apparent Distress, WD/WN HEENT: PERRL/EOMI, TMs Normal, Normal ENT Inspection, Pharynx Normal Neck: Full Range of Motion, Normal Inspection, Non Tender, Supple Respiratory: Chest Non Tender, Lungs Clear, Normal Breath Sounds, No Accessory Muscle Use, Decreased Breath Sounds Cardiovascular: Regular Rate, Rhythm, No Edema, No JVD Extremity: Normal Capillary Refill, Normal Inspection, Normal Range of Motion, Non Tender Neurologic/Psychiatric: Alert, Oriented x3 Skin: Normal Color, Warm/Dry Results Lab Laboratory Tests 04/16/22 17:32 04/16/22 22:20 04/17/22 03:00 Assessment/Plan Assessment/Plan CKD is improving Hyperkalemia is also better BP has improved without pressors DM on Insulin detmir 10 units at night and PRN aspart Critical Care: Critically Ill Patient Time spent with patient (mins): 30 NATASHA OSHEA MD Apr 17, 2022 08:04
[2022-04-17] MEDS: DOCUSATE SODIUM 100 MG (COLACE) CAP PO SCH ×2 (09:00→20:37)
[2022-04-17] MEDS: SENNOSIDES 8.6 MG (SENOKOT) TAB PO SCH ×2 (09:00→20:37)
[2022-04-17] MEDS: ENOXAPARIN 40 MG/0.4 ML (LOVENOX) SYR SC SCH ×2 (10:47→20:37)
--- NOTE | 2022-04-17 14:47 | Occupational Therapy Eval ---
OT Evaluation-General/PLF Medical Diagnosis Admission Date Apr 16, 2022 at 19:46 Medical Diagnosis: hypovolemic shock Onset Date: Apr 16, 2022 Therapy Diagnosis Therapy Diagnosis: n/a Height/Weight Height (Feet): 5 Height (Inches): 4.00 Weight (Pounds): 200 Weight (Ounces): 0.0 Precautions Precautions/Isolations: Fall Prevention, Standard Precautions Referral Referral Reason: Evaluation/Treatment Medical History Pertinent Medical History: DM, HTN Current History Pt reportedly sat in her car for 3 hours before family found her passed out. Presented to ER with weakness, fatigue, and change in mental status. Per patient, she lives with her spouse in a multilevel home (they stay on main level). She was indep with adls and shares iadl responsibilities with her spouse. She was not using any AD at baseline. Reviewed History: Yes Social History Home: Multilevel Current Living Status: Spouse Steps Into Home: 3 ADL-Prior Level of Function SCALE: Activities may be completed with or without assistive devices. 0-Afxaoxbzuk-ibkyidg completes the activity by him/herself with no assistance from a helper. 5-Set-up or Clean-up Assistance-helper sets up or cleans up; patient completes activity. [place] assists only prior to or following the activity. 4-Supervision or Touching Assistance-helper provides verbal cues and/or touching/steadying and/or contact guard assistance as patient completes activity. Assistance may be provided throughout the activity or intermittently. 3-Partial/Moderate Assistance-helper does LESS THAN HALF the effort. [place] lifts, holds or supports trunk or limbs, but provides less than half the effort. 2-Substantial/Maximal Assistance-helper does MORE THAN HALF the effort. [place] lifts or holds trunk or limbs and provides more than half the effort. 1-Zcuefrwki-cjhotx does ALL the effort. Patient does none of the effort to complete the activity. Or, the assistance of 2 or more helpers is required for the patient to complete the activity. If activity was not attempted, code reason: 7-Patient Refused. 9-Not Applicable-not attempted and the patient did not perform the activity before the current illness, exacerbation or injury. 10-Not Attempted due to Environmental Limitations-(lack of equipment, weather restraints, etc.). 88-Not Attempted due to Medical Conditions or Safety Concerns. Self Care: Independent Functional Cognition: Independent DME/Equipment: Bath Chair, Shower Drive Self: Yes OT Current Status Subjective Pt reports pain as 7/10 in groin secondary to femoral IV. RN in agreement with treatment. Appearance Pt returned to supine with all needs within reach at therapy departure. Mental Status/Objective Patient Orientation: Person, Place, Situation Attachments: Noland Catheter, IV, Oxygen (2L), Telemetry Current Glasses/Contacts: Yes Hearing Aids: No Dentures/Partials: No Hand Dominance: Right Upper Extremity ROM WNL Upper Extremity Strength 4/5 grossly ADL-Treatment Eating (QC): 6 Oral Hygiene (QC): 5 (per clinical judgment) Upper Body Dressing (QC): 5 (per clinical judgement) Lower Body Dressing (QC): 4 On/Off Footwear (QC): 1 Supine>sit: Min a, secondary to fear of ruining femoral IV placement. Assist needed to don L sock secondary to pain in groin from IV placement. Pt likely able to complete independently once IV is removed. Sit<>stand: indep. Pt ambulated around room with SBA for management of IV pole, no AD used. Slow but steady gait. Pt reports need to urinate but currently with Noland catheter. She was able to demonstrate ability to transfer on/off toilet without assistance. Pt declines any self cares needs and reports that she believes she will feeling much better once IV is removed from femoral vein. No further OT services warranted at this time. Education OT Patient Education: Correct positioning, Purpose of tx/functional activities, Safety issues, Transfer techniques Teaching Recipient: Patient, Family Teaching Methods: Discussion Response to Teaching: Verbalize Understanding, Return Demonstration OT Penitentiary Goals Penitentiary Goals 1=Demonstrate adherence to instructed precautions during ADL tasks. 2=Patient will verbalize/demonstrate understanding of assistive devices/modifications for ADL. 3=Patient will improve strength/tolerance for activity to enable patient to perform ADL's. OT Education/Plan Problem List/Assessment Assessment: No Skilled OT Needs ID'd Discharge Recommendations Plan/Recommendations: Discontinue OT Therapy Discharge Recommendati: Home & Family Treatment Plan/Plan of Care Treatment,Training & Education: Yes Patient would benefit from OT for education, treatment and training to promote independence in ADL's, mobility, safety and/or upper extremity function for ADL's. Plan of Care: ADL Retraining, Functional Mobility Treatment Duration: Apr 17, 2022 Frequency: 1 time per week Estimated Hrs Per Day: .25 hour per day Agreement: Yes Time/GCodes Start Time: 14:18 Stop Time: 14:35 Total Time Billed (hr/min): 17 Billed Treatment Time 1 visit Jacquelyn Cowan OT Apr 17, 2022 14:47
--- NOTE | 2022-04-17 14:54 | Physical Therapy Evaluation ---
PT Evaluation-General Medical Diagnosis Admission Date Apr 16, 2022 at 19:46 Medical Diagnosis: hypovolemic shock Onset Date: Apr 16, 2022 Therapy Diagnosis Therapy Diagnosis: independent with mobility Height/Weight Height (Feet): 5 Height (Inches): 4.00 Weight (Pounds): 200 Weight (Ounces): 0.0 Precautions Precautions/Isolations: Standard Precautions Weight Bear Status Right Lower Extremity: Right Weight Bearing/Tolerated Left Lower Extremity: Left Weight Bearing/Tolerated Referral Physician: Diogenes Reason for Referral: Evaluation/Treatment Medical History Additional Medical History Past Medical History Surgeries: Yes (BENIGN TUMOR REMOVED FROM NECK X2, LESION TO FOREARM, SKIN LESTIONS) Adenoidectomy, Hysterectomy, Oophorectomy, Tonsillectomy Respiratory: Yes Pneumonia Cardiac: Yes Hypertension Neurological: Yes Headaches /Migraines 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 Disorders: No 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, 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 Sexually Transmitted Disease: No HIV/AIDS: No Genitourinary: Yes Bladder Infection Gastrointestinal: No Musculoskeletal: Yes Chronic Back Pain, Gout Endocrine: Yes Diabetes, Insulin dep HEENT: No Loss of Vision: Bilateral Hearing Impairment: Denies Cancer: Yes Skin Did You Recieve Any Treatments: Yes What Type of Treatment Did You: Surgical Intervention Psychosocial: Yes Sleep Difficulties, Anxiety Integumentary: No Blood Disorders: No Adverse Reaction/Blood Tranf: No Reviewed History: Yes Social History Home: Multilevel Current Living Status: Spouse Entry Into Home: Stairs With Railing PT Steps Into Home: 3 Prior Prior Level of Function SCALE: Activities may be completed with or without assistive devices. 9-Fmzpelaurk-xalvxjf completes the activity by him/herself with no assistance from a helper. 5-Set-up or Clean-up Assistance-helper sets up or cleans up; patient completes activity. [place] assists only prior to or following the activity. 4-Supervision or Touching Assistance-helper provides verbal cues and/or touching/steadying and/or contact guard assistance as patient completes activ ity. Assistance may be provided throughout the activity or intermittently. 3-Partial/Moderate Assistance-helper does LESS THAN HALF the effort. [place] lifts, holds or supports trunk or limbs, but provides less than half the effort. 2-Substantial/Maximal Assistance-helper does MORE THAN HALF the effort. [place] lifts or holds trunk or limbs and provides more than half the effort. 2-Iknfytwtj-wyyhsf does ALL the effort. Patient does none of the effort to complete the activity. Or, the assistance of 2 or more helpers is required for the patient to complete the activity. If activity was not attempted, code reason: 7-Patient Refused. 9-Not Applicable-not attempted and the patient did not perform the activity before the current illness, exacerbation or injury. 10-Not Attempted due to Environmental Limitations-(lack of equipment, weather restraints, etc.). 88-Not Attempted due to Medical Conditions or Safety Concerns. Bed Mobility: 6 Transfers (B,C,W/C): 6 Gait: 6 Stairs: 6 Indoor Mobility (Ambulation): Independent Stairs: Independent PT Evaluation-Current Subjective Patient in bed pre tx, agrees to PT, has minor back pain. Pt/Family Goals to be independent at home Objective Patient Orientation: Person, Place, Situation Attachments: Oxygen, Noland Catheter, IV ROM/Strength ROM Lower Extremities WNL Strength Lower Extremities grossly 5/5 BLE Sensory Vision: Functional Hearing: Functional Sensation Right Lower Extremit: Intact Sensation Left Lower Extremity: Intact Transfers Roll Left to Right (QC): 6 Sit to Lying (QC): 6 Lying to Sitting/Side of Bed(Q: 3 Sit to Stand (QC): 6 Chair/Nsz-hj-Dekde Xfer(QC): 6 Patient wanted a little assist for supine to sit (min assist) but she could have done it on her own. Gait Does the Patient Walk?: Yes Mode of Locomotion: Walk Anticipated Mode of Locomotion: Walk Walk 10 feet (QC): 6 Walk 50 ft with 2 Turns(QC): 6 Distance: 50' Gait Assistive Device: None Comments/Gait Description independent, steady ambulation Balance Sitting Static: Normal Sitting Dynamic: Normal Standing Static: Normal Standing Dynamic: Normal Assessment/Needs Patient in bed post tx with nurse call, phone, tray, all needs met. Patient is independent with mobility and will be discharged from PT at this time. Rehab Potential: Good PT Plan Treatment/Plan Treatment Plan: Discontinue PT Treatment Duration: Apr 17, 2022 Frequency: Safety Risks/Education Patient Education: Gait Training, Transfer Techniques, Correct Positioning, Safety Issues Teaching Recipient: Patient Teaching Methods: Demonstration, Discussion Response to Teaching: Verbalize Understanding, Return Demonstration Discharge Recommendations Plan DC Therapy Discharge Recommendati: Home & Family Time/GCodes Time In: 1417 Time Out: 1434 Total Billed Treatment Time: 17 Total Billed Treatment 1 visit EVL 17' SOPHIA PRIEST PT Apr 17, 2022 14:54
[2022-04-17] MEDS ORDERED: METO100T12 PO (15:37)
[2022-04-17] MEDS ORDERED: LISI40TA9 PO (15:37)
[2022-04-17] MEDS ORDERED: HYDR-3820 PO (15:37)
[2022-04-17] MEDS ORDERED: CYCL10TA25 PO (15:37)
[2022-04-17] MEDS ORDERED: TRIA1TAB5 PO (15:37)
[2022-04-17] MEDS ORDERED: CLN.1T PO (15:37)
[2022-04-17] MEDS ORDERED: POTA8CAP20 PO (15:37)
[2022-04-17] MEDS ORDERED: ATOR20TA66 PO (15:37)
[2022-04-17] MEDS ORDERED: MONT-40 PO (15:37)
--- NOTE | 2022-04-17 18:25 | History & Physical ---
History of Present Illness History of Present Illness Reason for visit/HPI This is a 56 year old female who was brought to the emergency room due to weakness and confusion. She had been in the heat moving furniture for several hours the day prior to admission and had fallen asleep in her car in the heat for at least 2-3 hours as well. She was found to be severely dehydrated with acute kidney injury with a BUN of 46 and a Cr of 2.72, as well as hypotensive with hypovolemic shock. She was admitted to the ICU for aggressive IVFs and monitoring of her BUN and Cr as well as her blood pressure. Date of Admission Apr 16, 2022 at 19:46 Date Seen by a Provider: Apr 17, 2022 Time Seen by a Provider: 08:30 I consulted on this patient on 04/17/22 18:08 Attending Physician Mor Appiah DO Admitting Physician Admitting Physician: Lori Flor MD Attending Physician: Mor Appiah DO Consult Allergies and Home Medications Allergies Coded Allergies: clindamycin (Verified Allergy, Intermediate, POLYSYSTEMIC ARTHRITIS, 08/23/16) meperidine (Verified Allergy, Intermediate, N/V, 09/28/16) Penicillins (Unverified Allergy, Mild, 06/05/15) Sulfa (Sulfonamide Antibiotics) (Unverified Allergy, Mild, 06/05/15) succinylcholine (Unverified Allergy, Unknown, 06/05/15) Uncoded Allergies: serum dex deficiency (Allergy, Mild, 03/08/09) PSEUDOCHOLINESTERASE (Allergy, Unknown, 06/05/15) Patient Home Medication List Home Medication List Reviewed: Yes Allopurinol (Allopurinol) 300 Mg Tablet, 300 MG PO HS, (Reported) Entered as Reported by: CELSA CHINCHILLA on 01/24/211441 Last Action: Reviewed Atorvastatin Calcium (Atorvastatin Calcium) 20 Mg Tablet, 20 MG PO HS, (Reported) Entered as Reported by: CARMEN MILLARD on 04/17/22 5437 Last Action: Reviewed Cholecalciferol (Vitamin D3) (Vitamin D3) 125 Mcg (5000 Unit) Tablet, 125 MCG PO DAILY, (Reported) Entered as Reported by: CELSA CHINCHILLA on 01/24/211441 Last Action: Reviewed Clonidine HCl (Clonidine HCl) 0.1 Mg Tablet, 0.2 MG PO BID, (Reported) Entered as Reported by: CARMEN MILLARD on 04/17/221536 Last Action: Reviewed Cyclobenzaprine HCl (Cyclobenzaprine HCl) 10 Mg Tablet, 10 MG PO TID PRN for MUSCLE SPASMS, (Reported) Entered as Reported by: CARMEN MILLARD on 04/17/221536 Last Action: Reviewed Doxepin HCl (Doxepin HCl) 25 Mg Capsule, 25 MG PO HS, (Reported) Entered as Reported by: CELSA CHINCHILLA on 01/24/211441 Last Action: Reviewed Duloxetine HCl (Duloxetine HCl) 60 Mg Capsule.dr, 60 MG PO HS, (Reported) Entered as Reported by: CELSA CHINCHILLA on 01/24/211441 Last Action: Converted Gabapentin (Gabapentin) 600 Mg Tablet, 600 MG PO HS, (Reported) Entered as Reported by: CELSA CHINCHILLA on 01/24/211441 Last Action: Continued Hydrocodone/Acetaminophen (Hydrocodone-Acetamin 10-325 mg) 10 Mg-325 Mg Tablet, 1-2 EACH PO QID PRN for PAIN-MODERATE (5-7), (Reported) Entered as Reported by: CARMEN MILLARD on 04/17/221536 Last Action: Reviewed Hydroxyzine HCl (Hydroxyzine HCl) 25 Mg Tablet, 25 MG PO Q8H PRN for ITCHING, (Reported) Entered as Reported by: CELSA CHINCHILLA on 01/24/211441 Last Action: Reviewed Insulin NPH Human Isophane (Novolin N) 100 Unit/Ml Vial, 85 UNIT SQ 0800 W/MEAL, (Reported) Entered as Reported by: CELSA CHINCHILLA on 01/24/211441 Last Action: Reviewed Insulin Regular, Human (Novolin R) 100 Unit/Ml Vial, 80 UNIT SQ 1800 W/DINNER, (Reported) Entered as Reported by: CELSA CHINCHILLA on 01/24/211441 Last Action: Reviewed Lisinopril (Lisinopril) 40 Mg Tablet, 40 MG PO DAILY, (Reported) Entered as Reported by: CARMEN MILLARD on 04/17/221536 Last Action: Reviewed Metoprolol Tartrate (Metoprolol Tartrate) 100 Mg Tablet, 100 MG PO BID, (Reported) Entered as Reported by: CARMEN MILLARD on 04/17/221536 Last Action: Reviewed Montelukast Sodium (Montelukast Sodium) 10 Mg Tablet, 10 MG PO HS, (Reported) Entered as Reported by: CARMEN MILLARD on 04/17/221536 Last Action: Reviewed Potassium Chloride (Potassium Chloride) 8 Meq Capsule.er, 8 MEQ PO BID, (Reported) Entered as Reported by: CARMEN MILLARD on 04/17/221536 Last Action: Reviewed Triamterene/Hydrochlorothiazid (Triamterene-Hctz 75-50 mg Tab) 75 Mg-50 Mg Tablet, 1 EACH PO DAILY, (Reported) Entered as Reported by: CARMEN MILLARD on 04/17/221536 Last Action: Reviewed Vitamin E Mixed (Vitamin E) 400 Unit Capsule, 400 UNIT PO DAILY, (Reported) Entered as Reported by: CELSA CHINCHILLA on 01/24/211441 Last Action: Reviewed Discontinued Medications Baclofen (Baclofen) 20 Mg Tablet, 20 MG PO TID PRN for MUSCLE SPASMS, (Reported) Discontinued Reason: No Longer Taking Entered as Reported by: CELSA CHINCHILLA on 01/24/211441 Last Action: Discontinued Cefdinir (Cefdinir) 300 Mg Capsule, 300 MG PO BID Discontinued Reason: No Longer Taking Prescribed by: MOR APPIAH on 01/28/21953 Last Action: Discontinued Clonidine HCl (Clonidine HCl) 0.1 Mg Tablet, 0.1 MG PO TID Discontinued Reason: No Longer Taking Prescribed by: MOR APPIAH on 01/28/21953 Last Action: Discontinued Estrogens Conjugated (Premarin) 1.25 Mg Tab, 1.25 MG PO DAILY, (Reported) Discontinued Reason: No Longer Taking Entered as Reported by: CELSA CHINCHILLA on 01/24/211441 Last Action: Discontinued Furosemide (Furosemide) 40 Mg Tablet, 40 MG PO DAILY PRN for WATER RETENTION, (Reported) Discontinued Reason: No Longer Taking Entered as Reported by: CELSA CHINCHILLA on 01/24/211441 Last Action: Discontinued Hydrocodone/Acetaminophen (Hydrocodone-Acetamin 10-325 mg) 1 Each Tablet, 1-2 EACH PO QID PRN for PAIN-MODERATE (5-7), (Reported) Discontinued Reason: No Longer Taking Entered as Reported by: CELSA CHINCHILLA on 01/24/211441 Last Action: Discontinued Metoprolol Tartrate (Metoprolol Tartrate) 100 Mg Tablet, 50 MG PO BID Discontinued Reason: No Longer Taking Prescribed by: MOR APPIAH on 01/28/21953 Last Action: Discontinued Metronidazole (Flagyl) 500 Mg Tablet, 500 MG PO BID Discontinued Reason: No Longer Taking Prescribed by: MOR APPIAH on 01/28/21953 Last Action: Discontinued Multivitamin (Multivitamin) 1 Each Tablet, 1 EACH PO DAILY, (Reported) Discontinued Reason: No Longer Taking Entered as Reported by: CELSA CHINCHILLA on 01/24/211441 Last Action: Discontinued Potassium Chloride (K-Tab ER) 8 Meq Tablet.er, 8 MEQ PO BID, (Reported) Discontinued Reason: No Longer Taking Entered as Reported by: CELSA CHINCHILLA on 01/24/211441 Last Action: Discontinued Past Aquztmi-Drrcwa-Rtibqt Hx Patient Social History Marrital Status: Tobacco Use?: No Smoking Status: Never a Smoker Smokeless Tobacco Frequency: Never a User Use of E-Cig and/or Vaping dev: No Substance use?: No Alcohol Use?: No Pt feels they are or have been: No Immunizations Up To Date Second COVID19 Vaccination Juanito: 04/2021 Tetanus Booster (TDap): Less Than 5 Years Hepatitis A: Yes Hepatitis B: Yes Seasonal Allergies Seasonal Allergies: Yes Current Status status: No status: No Advance Directives: No Communicates: Verbally Primary Language: Hebrew Preferred Spoken Language: Hebrew Is interpretation needed?: No Sensory deficits: Vision impairment Implanted or Applied Medical D: None Past Medical History Surgeries: Adenoidectomy, Hysterectomy, Oophorectomy, Tonsillectomy Pneumonia Hypertension 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 /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, 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 Sexually Transmitted Disease: No HIV/AIDS: No Bladder Infection Chronic Back Pain, Gout Diabetes, Insulin dep Loss of Vision: Bilateral Hearing Impairment: Denies Skin Did You Recieve Any Treatments: Yes What Type of Treatment Did You: Surgical Intervention Sleep Difficulties, Anxiety Blood Disorders: No Adverse Reaction/Blood Tranf: No Family Medical History FH: CAD (coronary artery disease) FH: Remedios Gehrig's disease Hypertension G8 BROTHER No Pertinent Family Hx Review of Systems Constitutional: weakness EENTM: No see HPI, No no symptoms reported, No ear discharge, No hearing loss, No ear pain, No blurred vision, No double vision, No eye pain, No tearing, No vision loss, No dental problems, No hoarseness, No mouth pain, No mouth swelling, No epistaxis, No nose congestion, No nose pain, No throat pain, No throat swelling, No other Respiratory: No no symptoms reported, No see HPI, No cough, No dyspnea on exertion, No hemoptysis, No orthopnea, No phlegm, No short of breath, No stridor, No wheezing, No other Cardiovascular: No no symptoms reported, No see HPI, No chest pain, No edema, No Hx of Intervention, No palpitations, No syncope, No vascular heart diseas, No other Gastrointestinal: No RUQ, No LUQ, No RLQ, No LLQ, No no symptoms reported, No see HPI, No abdominal pain, No constipation, No diarrhea, No dysphagia, No hematemesis, No heartburn, No jaundice, No loss of appetite, No melena, No nausea, No vomiting, No other Genitourinary: decreased output Musculoskeletal: back pain, muscle cramps Skin: No no symptoms reported, No see HPI, No change in color, No change in hair/nails, No dryness, No hx of skin cancer, No lesions, No lumps, No pruritus, No rash, No other Psychiatric/Neurological: Weakness Physical Exam Vital Signs Vital Signs - First Documented 04/16/22 04/16/22 04/16/22 04/16/22 17:21 20:50 21:18 22:41 Temp 36.0 Pulse 87 Resp 18 B/P (MAP) 80/57 (65) Pulse Ox 97 O2 Delivery Room Air O2 Flow Rate 2.00 FiO2 24 Capillary Refill : Height, Weight, BMI Height: 5'4.00" Weight: 200lbs. 0.0oz. 90.948749bd; 42.48 BMI Method:Stated General Appearance: No Apparent Distress Neck: Supple Respiratory: Lungs Clear Cardiovascular: Regular Rate, Rhythm Gastrointestinal: Normal Bowel Sounds, Non Tender, Soft Rectal: Deferred Extremity: Non Tender, No Calf Tenderness, No Pedal Edema Neurologic/Psychiatric: Alert, Oriented x3 Skin: Warm/Dry Comments Laboratory Tests 04/16/22 22:20: Sodium Level 139, Potassium Level 5.6H, Chloride Level 102, Carbon Dioxide Level 25, Anion Gap 12, Blood Urea Nitrogen 46H, Creatinine 2.72#H, Estimat Glomerular Filtration Rate 20, BUN/Creatinine Ratio 17, Glucose Level 168H, Calcium Level 8.8 04/16/22 22:26: Glucometer 165H 04/17/22 03:00: Sodium Level 139, Potassium Level 4.8, Chloride Level 102, Carbon Dioxide Level 24, Anion Gap 13, Blood Urea Nitrogen 41H, Creatinine 2.15H, Estimat Glomerular Filtration Rate 26, BUN/Creatinine Ratio 19, Glucose Level 207H, Calcium Level 8.7, White Blood Count 8.9, Red Blood Count 3.62L, Hemoglobin 11.3L, Hematocrit 35, Mean Corpuscular Volume 95, Mean Corpuscular Hemoglobin 31, Mean Corpuscular Hemoglobin Concent 33, Red Cell Distribution Width 13.9, Platelet Count 173, Mean Platelet Volume 9.0, Phosphorus Level 4.7, Magnesium Level 1.6 04/17/22 10:56: Glucometer 186H 04/17/22 16:04: Glucometer 187H Microbiology 04/16/22 MRSA Screen - Preliminary, Resulted 04/16/22 Urine Culture - Final, Complete NO GROWTH Assessment/Plan Assessment and Plan 1. Acute Kidney Injury--hydrate and monitor BUN/Cr 2. Severe Dehydration with Hypovolemic Shock--aggressive IVFs and monitor BP--has not required pressors at this time 3. Diabetes mellitus--insulin requiring--on accuchecks with levemir and SSI 4. Lumbar Deg Disc Disease/Chronic Pain--hydrocodone and cymbalta and gabapentin restarted Admission Diagnosis Admission Status: Inpatient Order (span 2 midnights) Reason for Inpatient Admission: Will need at least 48hrs of IVFs MOR APPIAH DO Apr 17, 2022 18:25
[2022-04-17] MEDS ORDERED: DULoxetine 30 MG (CYMBALTA) CAP PO SCH (21:00)
[2022-04-17] MEDS ORDERED: GABAPENTIN 600 MG (NEURONTIN) TAB PO SCH (21:00)
[2022-04-17] MEDS ORDERED: NON-FORMULARY MEDICATION 1 EA EA (Duloxetine HCl 60 MG) PO SCH (21:00)
[2022-04-18 04:14] LABS: HEMATOCRIT 34 % (35-52); HEMOGLOBIN 11.2 g/dL (11.5-16.0); MEAN CORPUSCULAR HEMOGLOBIN 31 pg (25-34); MEAN CORPUSCULAR HGB CONC 33 g/dL (32-36); MEAN CORPUSCULAR VOLUME 96 fL (80-99); MEAN PLATELET VOLUME 8.9 fL (9.0-12.2); PLATELET COUNT 148 10^3/uL (130-400); WHITE BLOOD COUNT 5.9 10^3/uL (4.3-11.0)
[2022-04-18 04:37] LABS: POTASSIUM 5.3 MMOL/L (3.6-5.0)
[2022-04-18 04:38] LABS: CALCIUM 8.9 MG/DL (8.5-10.1)
[2022-04-18 04:42] LABS: PHOSPHORUS 2.8 MG/DL (2.3-4.7)
[2022-04-18 04:43] LABS: CREATININE SERUM 1.02 MG/DL (0.60-1.30)
[2022-04-18 04:45] LABS: MAGNESIUM 1.6 MG/DL (1.6-2.4)
[2022-04-18] MEDS: POTASSIUM CL 10MEQ/50ML IVPB 50 ML IV SCH (04:51)
[2022-04-18] MEDS: MAGNESIUM 1 GM/100 ML IVPB 100 ML IV SCH ×3 (04:51→06:36)
[2022-04-18] MEDS: KCL 20 MEQ TAB (K-DUR) PO SCH (04:52)
[2022-04-18] MEDS: NS IV 1000 ML 1,000 ML IV SCH (05:03)
[2022-04-18] MEDS: inSUlin ASPART (NovoLOG) 1 UNIT/0.01 ML (CHARGE PER UNIT) SC SCH (05:04)
[2022-04-18] MEDS ORDERED: ALLO300T2 PO (08:38)
[2022-04-18 09:46] VITALS: BP 119/64
--- NOTE | 2022-04-18 13:07 | Discharge Summary ---
Diagnosis/Chief Complaint Date of Admission Apr 16, 2022 at 19:46 Date of Discharge Apr 18, 2022 at 09:42 Discharge Date: Apr 18, 2022 Discharge Diagnosis 1. Acute Kidney Injury--improved 2. Severe Dehydration with Hypovolemic Shock--improved 3. Diabetes mellitus--insulin requiring--stable 4. Lumbar Deg Disc Disease/Chronic Pain--stable Reason Hospital Visit This is a 56 year old female who was brought to the emergency room due to weakness and confusion. She had been in the heat moving furniture for several hours the day prior to admission and had fallen asleep in her car in the heat for at least 2-3 hours as well. She was found to be severely dehydrated with acute kidney injury with a BUN of 46 and a Cr of 2.72, as well as hypotensive with hypovolemic shock. She was admitted to the ICU for aggressive IVFs and monitoring of her BUN and Cr as well as her blood pressure. Discharge Summary Hospital Course Was the Problem List Reviewed?: Yes Hospital Course This is a 56 year old female who was brought to the emergency room due to weakness and confusion. She had been in the heat moving furniture for several hours the day prior to admission and had fallen asleep in her car in the heat for at least 2-3 hours as well. She was found to be severely dehydrated with acute kidney injury with a BUN of 46 and a Cr of 2.72, as well as hypotensive with hypovolemic shock. She was admitted to the ICU for aggressive IVFs and monitoring of her BUN and Cr as well as her blood pressure. After aggressive IV hydration, her BUN and Cr were down to 19 and 1.02 by discharge. Her blood pressure remained stable and she never required pressors and by the time of discharge her blood pressure is 119/64. She is feeling much better and wants to go home. She will continue to orally hydrate at home and see me in 2 weeks with a repeat Chem 7. She will hold her Triam/HCTZ and potassium and lisinopril until fwup . She may resume her metoprolol and clonidine and monitor her home BP readings. Labs Laboratory Tests 04/16/22 17:24: Glucometer 142H 04/16/22 17:32: White Blood Count 13.9H, Mean Platelet Volume 8.8L, Neutrophils (%) (Auto) 76H, Neutrophils # (Auto) 10.5H, Eosinophils # (Auto) 0.4H, Potassium Level 6.2H, Blood Urea Nitrogen 50H, Creatinine 3.73H, Glucose Level 144H, Total Creatine Kinase 223H 04/16/22 17:40: 04/16/22 17:50: 04/16/22 18:23: Urine Specific [place] 1.025H, Urine Ketones TRACEH, Urine Bacteria FEWH, Urine Hyaline Casts 5-10H, Urine Mucus SMALLH 04/16/22 22:20: Potassium Level 5.6H, Blood Urea Nitrogen 46H, Creatinine 2.72#H, Glucose Level 168H 04/16/22 22:26: Glucometer 165H 04/17/22 03:00: Blood Urea Nitrogen 41H, Creatinine 2.15H, Glucose Level 207H, Red Blood Count 3.62L, Hemoglobin 11.3L 04/17/22 10:56: Glucometer 186H 04/17/22 16:04: Glucometer 187H 04/17/22 20:14: Glucometer 175H 04/18/22 04:00: Red Blood Count 3.58L, Hemoglobin 11.2L, Hematocrit 34L, Mean Platelet Volume 8.9L, Potassium Level 5.3H, Blood Urea Nitrogen 19H, Glucose Level 196H Procedures None. Discharge Physical Examination Allergies: Coded Allergies: clindamycin (Verified Allergy, Intermediate, POLYSYSTEMIC ARTHRITIS, 08/23/16) meperidine (Verified Allergy, Intermediate, N/V, 09/28/16) Penicillins (Unverified Allergy, Mild, 06/05/15) Sulfa (Sulfonamide Antibiotics) (Unverified Allergy, Mild, 06/05/15) succinylcholine (Unverified Allergy, Unknown, 06/05/15) Uncoded Allergies: serum dex deficiency (Allergy, Mild, 03/08/09) PSEUDOCHOLINESTERASE (Allergy, Unknown, 06/05/15) Vitals & I&Os Vital Signs Date Time Temp Pulse Resp B/P (MAP) Pulse Ox O2 Delivery O2 Flow Rate FiO2 04/18/22 09:46 36.8 105 20 119/64 97 Nasal Cannula 2.00 04/16/22 22:41 24 General Appearance: Alert, Oriented X3, No Acute Distress Respiratory: Clear to Auscultation Cardiovascular: Regular Rate Abdominal: Normal Bowel Sounds, Soft, No Tenderness Extremities: No Clubbing, No Cyanosis, No Edema Psych/Mental Status: Mental Status NL, Mood NL Discharge Home Medications Reviewed and agree with Discharge Medication list on patient's Discharge Instruction sheet Instructions to Patient/Family Please see electronic discharge instructions given to patient. MOR PIERRE DO Apr 18, 2022 13:07
== END 2022-04-18 09:42 | disposition home or self-care (01) | DRG 682 ==
LOC: EDUNIT# 17:14 → ER 17:17 → ICU 19:46
PROVIDERS: ADMIT Internal Medicine; ATTEND Family Medicine
PROC: 02HV33Z Insertion of Infusion Device into Superior Vena Cava, Percutaneous Approach (ICD-10-PCS; principal; 2022-04-18)
DX: N17.9 Acute kidney failure, unspecified (principal); R57.1 Hypovolemic shock; I13.0 Hypertensive heart and chronic kidney disease with heart failure and stage 1 through stage 4 chronic kidney disease, or unspecified chronic kidney disease; I95.9 Hypotension, unspecified; E11.22 Type 2 diabetes mellitus with diabetic chronic kidney disease; N18.9 Chronic kidney disease, unspecified; I50.9 Heart failure, unspecified; Z20.822 Contact with and (suspected) exposure to COVID-19; Z79.4 Long term (current) use of insulin; E86.0 Dehydration; G89.29 Other chronic pain; M51.36 Other intervertebral disc degeneration, lumbar region; Z79.899 Other long term (current) drug therapy; G43.909 Migraine, unspecified, not intractable, without status migrainosus; M54.9 Dorsalgia, unspecified; M10.9 Gout, unspecified; F41.9 Anxiety disorder, unspecified; E87.5 Hyperkalemia; M25.519 Pain in unspecified shoulder
CPT/HCPCS: 36415; 51702; 70450; 71045; 74018; 80048; 80053; 81000; 82550; 82947; 83605; 83735; 83880; 84100; 84484; 85025; 85027; 85610; 85730; 87081; 87088; 87636; 93005

== ENCOUNTER 2022-07-20 22:44 | Emergency (ER) | payer SELFPAY ==
[~2022-07-20] VITALS: Ht 157 cm; Wt 104.0 kg
[~2022-07-20 22:44] MED LIST changes: +ATOR20TA66 PO; +LISI40TA9 PO; +MONT-40 PO; +POTA8CAP20 PO
--- NOTE | 2022-07-20 23:10 | ED Lower Extremity ---
General Chief Complaint: Lower Extremity Stated Complaint: ANKLE PAIN Nursing Triage Note: PT TO FT 1 BY WC WITH CC OF R ANKLE PAIN SINCE THIS AFTERNOON. PT STATES "FEELS LIKE CRUSHED GLASS IS IN THERE." PT DENIES INJURY. Source: patient History of Present Illness Date Seen by Provider: Jul 20, 2022 Time Seen by Provider: 23:00 Initial Comments PT ARRIVES VIA POV FROM HOME STATES SHE WOKE UP FROM A NAP THIS AFTERNOON AND STATES "MY ANKLE FEELS LIKE CRUSHED GLASS" NO INJURY NO SWELLING NO SKIN CHANGES NO PARESTHESIAS OR MOTOR DEFICITS NO FEVER TOOK HYDROCODONE 4 HOURS AGO WITHOUT RELIEF HAS HAD THIS ONE TIME BEFORE, MANY YEARS AGO, TREATED WITH A STEROID SHOT, AND NO PROBLEMS SINCE STATES SHE HAS HAD GOUT IN THE PAST, BUT IT AFFECTED HER BIG TOE. SHE IS NOT ON ANY GOUT MEDICATIONS PT HAS HTN AND TYPE 2 DIABETES. NO MEDICATION OR DOSE CHANGES. HAS NOT BEEN DX WITH NEUROPATHY, OCCASIONALLY HAS TINGLING IN HER FEET, AND IS NOT ON ANY MEDICATION FOR NEUROPATHY. THERE IS NOT ANY TINGLING NOW. STATES SHE IS GOING ON VACATION TOMORROW AND WANTS THIS FIXED BEFORE THEN. PCP: DR. PIERRE Allergies and Home Medications Allergies Coded Allergies: clindamycin (Verified Allergy, Intermediate, POLYSYSTEMIC ARTHRITIS, 08/23/16) meperidine (Verified Allergy, Intermediate, N/V, 09/28/16) Penicillins (Unverified Allergy, Mild, 06/05/15) Sulfa (Sulfonamide Antibiotics) (Unverified Allergy, Mild, 06/05/15) succinylcholine (Unverified Allergy, Unknown, 06/05/15) Uncoded Allergies: serum dex deficiency (Allergy, Mild, 03/08/09) PSEUDOCHOLINESTERASE (Allergy, Unknown, 06/05/15) Patient Home Medication List Home Medication List Reviewed: Yes Allopurinol (Allopurinol) 300 Mg Tablet, 150 MG PO HS Prescribed by: MOR PIERRE on 04/18/22 0838 Atorvastatin Calcium (Atorvastatin Calcium) 20 Mg Tablet, 20 MG PO HS, (Reported) Entered as Reported by: CARMEN MILLARD on 04/17/22 1537 Cholecalciferol (Vitamin D3) (Vitamin D3) 125 Mcg (5000 Unit) Tablet, 125 MCG PO DAILY, (Reported) Entered as Reported by: CELSA CHINCHILLA on 01/24/21 1442 Clonidine HCl (Clonidine HCl) 0.1 Mg Tablet, 0.2 MG PO BID, (Reported) Entered as Reported by: CARMEN MILLARD on 04/17/22 153 Cyclobenzaprine HCl (Cyclobenzaprine HCl) 10 Mg Tablet, 10 MG PO TID PRN for MUSCLE SPASMS, (Reported) Entered as Reported by: CARMEN MILLARD on 04/17/22 153 Doxepin HCl (Doxepin HCl) 25 Mg Capsule, 25 MG PO HS, (Reported) Entered as Reported by: CELSA CHINCHILLA on 01/24/21 144 Duloxetine HCl (Duloxetine HCl) 60 Mg Capsule.dr, 60 MG PO HS, (Reported) Entered as Reported by: CELSA CHINCHILLA on 01/24/21 144 Gabapentin (Gabapentin) 600 Mg Tablet, 600 MG PO HS, (Reported) Entered as Reported by: CELSA CHINCHILLA on 01/24/21 144 Hydrocodone/Acetaminophen (Hydrocodone-Acetamin 10-325 mg) 10 Mg-325 Mg Tablet, 1-2 EACH PO QID PRN for PAIN-MODERATE (5-7), (Reported) Entered as Reported by: CARMEN MILLARD on 04/17/22 153 Hydroxyzine HCl (Hydroxyzine HCl) 25 Mg Tablet, 25 MG PO Q8H PRN for ITCHING, (Reported) Entered as Reported by: CELSA CHINCHILLA on 01/24/21 144 Insulin NPH Human Isophane (Novolin N) 100 Unit/Ml Vial, 85 UNIT SQ 0800 W/MEAL, (Reported) Entered as Reported by: CELSA CHINCHILLA on 01/24/21 144 Insulin Regular, Human (Novolin R) 100 Unit/Ml Vial, 80 UNIT SQ 1800 W/DINNER, (Reported) Entered as Reported by: CELAS CHINCHILLA on 01/24/21 144 Methylprednisolone (Medrol) 4 Mg Tab.ds.pk, 4 MG PO UD Prescribed by: HORTENCIA MORGAN on 07/20/222320 Metoprolol Tartrate (Metoprolol Tartrate) 100 Mg Tablet, 100 MG PO BID, (Reported) Entered as Reported by: CARMEN MILLARD on 04/17/22 153 Montelukast Sodium (Montelukast Sodium) 10 Mg Tablet, 10 MG PO HS, (Reported) Entered as Reported by: CARMEN MILLARD on 04/17/22 1537 Vitamin E Mixed (Vitamin E) 400 Unit Capsule, 400 UNIT PO DAILY, (Reported) Entered as Reported by: CELSA CHINCHILLA on 01/24/21 1442 Review of Systems Constitutional: no symptoms reported Musculoskeletal: see HPI Skin: no symptoms reported Psychiatric/Neurological: See HPI Past Siqygtb-Rdmwdx-Vyuyco Hx Patient Social History Tobacco Use?: No Substance use?: No Alcohol Use?: No Pt feels they are or have been: No Immunizations Up To Date Tetanus Booster (TDap): More than 5yrs First/Initial COVID19 Vaccinat: 04/2021 Second COVID19 Vaccination Juanito: 04/2021 Third COVID19 Vaccination Date: 04/2021 Seasonal Allergies Seasonal Allergies: Yes Past Medical History Surgery/Hospitalization HX: TYPE II DIABETIC, HYPERTENSION, HYSTERECTOMY, T&A Surgeries: Yes (BENIGN TUMOR REMOVED FROM NECK X2, LESION TO FOREARM, SKIN LESIONS) Adenoidectomy, Hysterectomy, Oophorectomy, Tonsillectomy Respiratory: Yes Pneumonia Cardiac: Yes Hypertension Neurological: Yes Headaches /Migraines 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 Disorders: No 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, 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 Sexually Transmitted Disease: No HIV/AIDS: No Genitourinary: Yes Bladder Infection Gastrointestinal: No Musculoskeletal: Yes Chronic Back Pain, Gout Endocrine: Yes Diabetes, Insulin dep HEENT: No Loss of Vision: Bilateral Hearing Impairment: Denies Cancer: Yes Skin Did You Recieve Any Treatments: Yes What Type of Treatment Did You: Surgical Intervention Psychosocial: Yes Sleep Difficulties, Anxiety Integumentary: No Blood Disorders: No Adverse Reaction/Blood Tranf: No Family Medical History FH: CAD (coronary artery disease) FH: Remedios Gehrig's disease Hypertension G8 BROTHER No Pertinent Family Hx Physical Exam Vital Signs Vital Signs - First Documented 07/20/22 22:53 Temp 36.4 Pulse 109 Resp 20 B/P (MAP) 126/88 (101) Pulse Ox 95 O2 Delivery Room Air Capillary Refill : Less Than 3 Seconds Height, Weight, BMI Height: 5'4.00" Weight: 200lbs. 0.0oz. 90.031749vh; 42.00 BMI Method:Stated General Appearance: WD/WN, no apparent distress Ankles: left ankle normal inspection; right ankle normal range of motion, right ankle no evidence of injury, right ankle other (MILD GENERALIZED TENDERNESS TO ANKLE AND HEEL OF RIGHT FOOT. NO EXTERNAL EVIDENCE OF TRAUMA. NO SWELLING OR BRUISING OR ANY SORES/WOUNDS, ETC. MOTOR/SENSORY/VASCULAR INTACT. BOTH FEET ARE VERY DUSKY WHEN HANGING DOWN IN DEPENDENT POSITION WHILE PT IS SITTING. COLOR IMPROVES WITH RAISING OF HER LEGS. PT STATES IS ALWAYS LIKE THAT FOR HER, AND HAS BEEN FOR YEARS. ) Feet: left foot normal inspection; right foot other ( ABOVE) Neurologic/Tendon: normal sensation, normal motor functions, normal tendon functions Neurologic/Psychiatric: csr retail II-XII nml as tested, no motor/sensory deficits, alert, normal mood/affect, oriented x 3 Skin: normal color, warm/dry Progress/Results/Core Measures Results/Orders My Orders Orders - HORTENCIA MORGAN DO Ankle, Right, 3 Views (07/20/22 23:04) Methylprednisolone Sod Succ (Solu-Medrol (07/20/22 23:30) Medications Given in ED Current Medications Medications Dose Ordered Sig/[place]uy Route Start Time Stop Time Status Last Admin Dose Admin Methylprednisolone Sodium Succinate 125 mg ONCE ONCE IM 07/20/22 23:30 07/20/22 23:31 DC 07/20/22 23:26 125 MG Vital Signs/I&O 07/20/22 07/20/22 22:53 23:31 Temp 36.4 Pulse 109 109 Resp 20 20 B/P (MAP) 126/88 (101) 126/88 Pulse Ox 95 95 O2 Delivery Room Air Room Air Blood Pressure Mean: 101 Progress Progress Note : Progress Note REQUESTS SHOT OF STEROIDS AND RX OF STEROIDS STATES HER BLOOD SUGARS ARE NOT AFFECTED BY STEROIDS. DISCUSSED POSSIBILITY OF GOUT, AND FURTHER EVALUATION WITH LAB TESTS IF HER SYMPTOMS WORSEN, AND POSSIBLE NEED FOR ADDITIONAL MEDICATION SHE OPTS TO TRY STEROIDS FIRST. RETURN PRECAUTIONS DISCUSSED Diagnostic Imaging Comments XRAYS RIGHT ANKLE--NO ACUTE PROCESS, PENDING RADIOLOGIST REVIEW Reviewed: Reviewed by Me Departure Impression Primary Impression: Right ankle pain Additional Impression: Hx of gout Disposition: HOME, SELF-CARE Condition: Stable Departure-Patient Inst. Decision time for Depature: 23:18 Referrals: MOR PIERRE DO (PCP/Family) Primary Care Physician Patient Instructions: How to Use an Elastic Bandage, Using Cold for Pain, Joint Pain Add. Discharge Instructions: ANY WRAP NEEDED FOR PAIN AND / OR SWELLING ICE TO AREA AT 20 MINUTE INTERVALS ELEVATE FOOT MUCH POSSIBLE FOLLOW UP WITH YOUR DR IN 2-3 DAYS IF NO BETTER, RETURN TO ER IF WORSE All discharge instructions reviewed with patient and/or family. Voiced understanding. Scripts Methylprednisolone (Medrol) 4 Mg Tab.ds.pk 4 MG PO UD for 6 Days, #21 PKG PER DOSE PACK INSTRUCTIONS Prov: HORTENCIA MORGAN DO 07/20/22 HORTENCIA MORGAN DO Jul 20, 2022 23:10
[2022-07-20] MEDS ORDERED: METH4TAB PO (23:21)
[2022-07-20] MEDS ORDERED: methylPREDNISolone 125 MG (Solu-MEDROL) VIAL IM ONE (23:30)
[2022-07-20 23:31] VITALS: BP 126/88
--- NOTE | 2022-07-21 06:53 | Diagnostic Imaging Report ---
Indication: 56-year-old female with right ankle pain Comparisons: None Findings: 3 views of the right ankle show no evidence of new or healing fractures, bony destruction or remodeling. The right ankle mortise is preserved. There is a small plantar calcaneal spur. IMPRESSION: Small plantar calcaneal spur but no fracture or subluxation. The right ankle mortise is preserved. Dictated by: Dictated on workstation # [id number]
== END 2022-07-20 23:31 | disposition home or self-care (01) ==
LOC: EDUNIT# 22:44 → ER 22:46
DX: M25.571 Pain in right ankle and joints of right foot (principal); Z87.39 Personal history of other diseases of the musculoskeletal system and connective tissue; E11.9 Type 2 diabetes mellitus without complications; Z79.4 Long term (current) use of insulin
CPT/HCPCS: 73610

== ENCOUNTER 2022-09-01 12:45 | Emergency (ER) | payer SELFPAY ==
[~2022-09-01] VITALS: Ht 162 cm; Wt 95.2 kg
[~2022-09-01 12:45] MED LIST changes: -UBID400C6 PO; +UBID400C8 PO; +VITA-212 PO; -VITA-272 PO
[2022-09-01] MEDS ORDERED: KETOROLAC 60 MG/2 ML VIAL IM STA (13:21)
[2022-09-01] MEDS ORDERED: ORPHENADRINE 60 MG/2 ML (NORFLEX) AMP (ED ONLY) IM STA (13:21)
--- NOTE | 2022-09-01 13:29 | ED Back Pain ---
General Chief Complaint: Back Problems Stated Complaint: LOWER BACK PAIN Nursing Triage Note: PT STATES SHE FELL ON SOME STAIRS AT HOME ABOUT A WEEK AGO HURTING HER BACK, CC TODAY OF BACK PAIN IN A DIFFERENT SPOT IN THE LOW BACK, INITIALLY HURT LT SIDE FROM THE SHOULDER TO THE KNEE History of Present Illness Date Seen by Provider: Sep 01, 2022 Time Seen by Provider: 13:09 Initial Comments 57-year-old female presents today with bilateral lower back pain which started last night around 11 PM. Pain is located in the lower lumbar region. Patient denies any pain radiation down legs or glutes. Patient denies any numbness or tingling in her legs or feet, denies saddle paresthesia. Patient denies any episodes of bowel or bladder incontinence. Patient reports walking and moving makes the pain worse. Patient reports that she fell approximately 8 days ago on some stairs and landed on her left mid back. Patient reports that area is feeling better and this pain is new and much lower on her back. Patient denies any nausea, vomiting, diarrhea, constipation, fevers, chills, chest pain, shortness of breath. Timing/Duration: 12-24 Hours Pain/Injury Location: Back Modifying Factors: Worse With Movement Associated Symptoms: No weakness, No numbness in legs/feet, No tingling in legs/feet, No loss of bladder control, No loss of bowel control Allergies and Home Medications Allergies Coded Allergies: clindamycin (Verified Allergy, Intermediate, POLYSYSTEMIC ARTHRITIS, 08/23/16) meperidine (Verified Allergy, Intermediate, N/V, 09/28/16) Penicillins (Unverified Allergy, Mild, 06/05/15) Sulfa (Sulfonamide Antibiotics) (Unverified Allergy, Mild, 06/05/15) succinylcholine (Unverified Allergy, Unknown, 06/05/15) Uncoded Allergies: serum dex deficiency (Allergy, Mild, 03/08/09) PSEUDOCHOLINESTERASE (Allergy, Unknown, 06/05/15) Patient Home Medication List Home Medication List Reviewed: Yes Allopurinol (Allopurinol) 300 Mg Tablet, 150 MG PO HS Prescribed by: MOR PIERRE on 04/18/22 0876 Atorvastatin Calcium (Atorvastatin Calcium) 20 Mg Tablet, 20 MG PO HS, (Reported) Entered as Reported by: CARMEN MILLARD on 04/17/22 1537 Cholecalciferol (Vitamin D3) (Vitamin D3) 125 Mcg (5000 Unit) Tablet, 125 MCG PO DAILY, (Reported) Entered as Reported by: CELSA CHINCHILLA on 01/24/21 144 Clonidine HCl (Clonidine HCl) 0.1 Mg Tablet, 0.2 MG PO BID, (Reported) Entered as Reported by: CARMEN MILLARD on 04/17/22 153 Cyclobenzaprine HCl (Cyclobenzaprine HCl) 10 Mg Tablet, 10 MG PO TID PRN for MUSCLE SPASMS, (Reported) Entered as Reported by: CARMEN MILLARD on 04/17/22 153 Doxepin HCl (Doxepin HCl) 25 Mg Capsule, 25 MG PO HS, (Reported) Entered as Reported by: CELSA CHINCHILLA on 01/24/21 144 Duloxetine HCl (Duloxetine HCl) 60 Mg Capsule.dr, 60 MG PO HS, (Reported) Entered as Reported by: CELSA CHINCHILLA on 01/24/21 144 Gabapentin (Gabapentin) 600 Mg Tablet, 600 MG PO HS, (Reported) Entered as Reported by: CELSA CHINCHILLA on 01/24/211441 Hydrocodone/Acetaminophen (Hydrocodone-Acetamin 10-325 mg) 10 Mg-325 Mg Tablet, 1-2 EACH PO QID PRN for PAIN-MODERATE (5-7), (Reported) Entered as Reported by: CARMEN MILLARD on 04/17/22 153 Hydroxyzine HCl (Hydroxyzine HCl) 25 Mg Tablet, 25 MG PO Q8H PRN for ITCHING, (Reported) Entered as Reported by: CELSA CHINCHILLA on 01/24/21 144 Insulin NPH Human Isophane (Novolin N) 100 Unit/Ml Vial, 85 UNIT SQ 0800 W/MEAL, (Reported) Entered as Reported by: CELSA CHINCHILLA on 01/24/21 144 Insulin Regular, Human (Novolin R) 100 Unit/Ml Vial, 80 UNIT SQ 1800 W/DINNER, (Reported) Entered as Reported by: CELSA CHINCHILLA on 01/24/21 144 Methylprednisolone (Medrol) 4 Mg Tab.ds.pk, 4 MG PO UD Prescribed by: HORTENCIA MORGAN on 07/20/22 686 Metoprolol Tartrate (Metoprolol Tartrate) 100 Mg Tablet, 100 MG PO BID, (Reported) Entered as Reported by: CARMEN MILLARD on 04/17/22 1537 Montelukast Sodium (Montelukast Sodium) 10 Mg Tablet, 10 MG PO HS, (Reported) Entered as Reported by: CARMEN MILLARD on 04/17/22 153 Vitamin E Mixed (Vitamin E) 400 Unit Capsule, 400 UNIT PO DAILY, (Reported) Entered as Reported by: CELSA CHINCHILLA on 01/24/21 1442 Review of Systems Constitutional: no symptoms reported Respiratory: no symptoms reported Cardiovascular: no symptoms reported Gastrointestinal: no symptoms reported Musculoskeletal: back pain Past Nzooicc-Qudknx-Iqmsml Hx Patient Social History Tobacco Use?: No Substance use?: No Alcohol Use?: No Immunizations Up To Date Tetanus Booster (TDap): More than 5yrs First/Initial COVID19 Vaccinat: 04/2021 Second COVID19 Vaccination Juanito: 04/2021 Third COVID19 Vaccination Date: 04/2021 Seasonal Allergies Seasonal Allergies: Yes Past Medical History Surgery/Hospitalization HX: TYPE II DIABETIC, HYPERTENSION, HYSTERECTOMY, T&A Surgeries: Yes (BENIGN TUMOR REMOVED FROM NECK X2, LESION TO FOREARM, SKIN LESIONS) Adenoidectomy, Hysterectomy, Oophorectomy, Tonsillectomy Respiratory: Yes Pneumonia Cardiac: Yes Hypertension Neurological: Yes Headaches /Migraines 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 Disorders: No 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, 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 Sexually Transmitted Disease: No HIV/AIDS: No Genitourinary: Yes Bladder Infection Gastrointestinal: No Musculoskeletal: Yes Chronic Back Pain, Gout Endocrine: Yes Diabetes, Insulin dep HEENT: No Loss of Vision: Bilateral Hearing Impairment: Denies Cancer: Yes Skin Did You Recieve Any Treatments: Yes What Type of Treatment Did You: Surgical Intervention Psychosocial: Yes Sleep Difficulties, Anxiety Integumentary: No Blood Disorders: No Adverse Reaction/Blood Tranf: No Family Medical History FH: CAD (coronary artery disease) FH: Remedios Gehrig's disease Hypertension G8 BROTHER No Pertinent Family Hx Physical Exam Vital Signs Vital Signs - First Documented 09/01/22 13:00 Temp 36.8 Pulse 102 Resp 20 B/P (MAP) 94/69 (77) Pulse Ox 99 O2 Delivery Room Air Capillary Refill : Less Than 3 Seconds Height, Weight, BMI Height: 5'4.00" Weight: 200lbs. 0.0oz. 90.224872vp; 36.00 BMI Method:Stated General Appearance: No Apparent Distress, WD/WN Neck: Normal Inspection, Supple Cardiovascular: Regular Rate, Rhythm Respiratory: Lungs Clear, Normal Breath Sounds, No Accessory Muscle Use, No Respiratory Distress Back: No Vertebral Tenderness, Other (muscle tenderness brenden lower back, ecchymosis to left mid back) Neurologic/Psychiatric: Alert, Oriented x3 Skin: Normal Color, Warm/Dry, Ecchymosis (L mid back) Progress/Results/Core Measures Results/Orders My Orders Orders - CHOCO ARRIAZA APRN Ketorolac Injection (Toradol Injection) (09/01/22 13:21) Orphenadrine Inj (Ed Only) (Norflex Inje (09/01/22 13:21) Vital Signs/I&O 09/01/22 13:00 Temp 36.8 Pulse 102 Resp 20 B/P (MAP) 94/69 (77) Pulse Ox 99 O2 Delivery Room Air Blood Pressure Mean: 77 Progress Progress Note #1: Time: 13:15 Progress Note Patient seen and evaluated. Discussed pain medication options with patient. Toradol and Norflex ordered. Patient agrees with plan. Progress Note #2: Time: 14:21 Progress Note Patient reports her pain has improved it is now a 2/10. Patient would like to go home. Patient states she has a prescription for cyclobenzaprine at home and does not want a prescription today. Discussed return precautions with patient. Patient verbalized understanding Departure Impression Primary Impression: Back pain Qualified Codes: M54.50 - Low back pain, unspecified Disposition: 01 HOME, SELF-CARE Condition: Stable Departure-Patient Inst. Decision time for Depature: 14:21 Referrals: MOR PIERRE DO (PCP/Family) Primary Care Physician Patient Instructions: Low Back Pain (DC), Muscle Strain (DC) Add. Discharge Instructions: Take home prescription of cyclobenzaprine as directed. Continue to take home pain medications as directed. Follow-up with primary care provider. Return for any new or concerning symptoms including difficulty walking, numbness or tingling on the inner portion of the thighs, new bowel or bladder incontinence All discharge instructions reviewed with patient and/or family. Voiced understanding. CHOCO ARRIAZA APRN Sep 01, 2022 13:29
[2022-09-01 14:27] VITALS: BP 94/69
== END 2022-09-01 14:27 | disposition home or self-care (01) ==
LOC: EDUNIT# 12:45 → ER 12:48
DX: S30.0XXA Contusion of lower back and pelvis, initial encounter (principal); E11.9 Type 2 diabetes mellitus without complications; Z79.4 Long term (current) use of insulin; Z28.310 Unvaccinated for COVID-19; W10.9XXA Fall (on) (from) unspecified stairs and steps, initial encounter; Y92.009 Unspecified place in unspecified non-institutional (private) residence as the place of occurrence of the external cause
CPT/HCPCS: 99284

== ENCOUNTER 2022-10-20 15:06 | Emergency (ER) | payer SELFPAY ==
[~2022-10-20] VITALS: Ht 162.6 cm; Wt 90.7 kg
--- NOTE | 2022-10-20 16:00 | ED Cough/URI ---
General Chief Complaint: Cough/Cold/Flu Symptoms Stated Complaint: COUGH, CONGESTION, DIARRHEA Nursing Triage Note: pt ambulatory to room. states she has had cough, congestion, and "off and on" diarrhea. states she wanted to come get looked at today after feeling "sicker" this morning and did not want to wait until the weekend to get checked out. states symptoms started 2 or 3 days ago Source: patient Exam Limitations: no limitations (SARA ARRIAZA APRN) History of Present Illness Date Seen by Provider: Oct 20, 2022 Time Seen by Provider: 15:39 Initial Comments 57-year-old female presents with cough, nasal congestion, loose stools for the last 2 days. States cough is productive occasionally with white sputum. States her nasal drainage is clear. States she has had approximately 5 or 6 loose s tools over the last 2 days. Her currently has influenza A. Denies fever, headache, chest pain, shortness of air, abdominal pain, nausea/vomiting. Past medical history includes diabetes, hypertension, gout, high cholesterol. (SARA ARRIAZA APRN) Allergies and Home Medications Allergies Coded Allergies: clindamycin (Verified Allergy, Intermediate, POLYSYSTEMIC ARTHRITIS, 08/23/16) meperidine (Verified Allergy, Intermediate, N/V, 09/28/16) Penicillins (Unverified Allergy, Mild, 06/05/15) Sulfa (Sulfonamide Antibiotics) (Unverified Allergy, Mild, 06/05/15) succinylcholine (Unverified Allergy, Unknown, 06/05/15) Uncoded Allergies: serum dex deficiency (Allergy, Mild, 03/08/09) PSEUDOCHOLINESTERASE (Allergy, Unknown, 06/05/15) Patient Home Medication List Home Medication List Reviewed: Yes (SARA ARRIAZA APRN) Allopurinol (Allopurinol) 300 Mg Tablet, 150 MG PO HS Prescribed by: MOR PIERRE on 04/18/22 0838 Atorvastatin Calcium (Atorvastatin Calcium) 20 Mg Tablet, 20 MG PO HS, (Reported) Entered as Reported by: CARMEN MILLARD on 04/17/22 1537 Cholecalciferol (Vitamin D3) (Vitamin D3) 125 Mcg (5000 Unit) Tablet, 125 MCG PO DAILY, (Reported) Entered as Reported by: CELSA CHINCHILLA on 01/24/21 1442 Clonidine HCl (Clonidine HCl) 0.1 Mg Tablet, 0.2 MG PO BID, (Reported) Entered as Reported by: CARMEN MILLARD on 04/17/22 153 Cyclobenzaprine HCl (Cyclobenzaprine HCl) 10 Mg Tablet, 10 MG PO TID PRN for MUSCLE SPASMS, (Reported) Entered as Reported by: CARMEN MILLARD on 04/17/22 153 Doxepin HCl (Doxepin HCl) 25 Mg Capsule, 25 MG PO HS, (Reported) Entered as Reported by: CELSA CHINCHILLA on 01/24/21 144 Duloxetine HCl (Duloxetine HCl) 60 Mg Capsule.dr, 60 MG PO HS, (Reported) Entered as Reported by: CELSA CHINCHILLA on 01/24/21 144 Gabapentin (Gabapentin) 600 Mg Tablet, 600 MG PO HS, (Reported) Entered as Reported by: CELSA CHINCHILLA on 01/24/21 144 Hydrocodone/Acetaminophen (Hydrocodone-Acetamin 10-325 mg) 10 Mg-325 Mg Tablet, 1-2 EACH PO QID PRN for PAIN-MODERATE (5-7), (Reported) Entered as Reported by: CARMEN MILLARD on 04/17/22 153 Hydroxyzine HCl (Hydroxyzine HCl) 25 Mg Tablet, 25 MG PO Q8H PRN for ITCHING, (Reported) Entered as Reported by: CELSA CHINCHILLA on 01/24/21 144 Insulin NPH Human Isophane (Novolin N) 100 Unit/Ml Vial, 85 UNIT SQ 0800 W/MEAL, (Reported) Entered as Reported by: CELSA CHINCHILLA on 01/24/21 144 Insulin Regular, Human (Novolin R) 100 Unit/Ml Vial, 80 UNIT SQ 1800 W/DINNER, (Reported) Entered as Reported by: CELSA CHINCHILLA on 01/24/21 144 Methylprednisolone (Medrol) 4 Mg Tab.ds.pk, 4 MG PO UD Prescribed by: HORTENCIA MORGAN on 07/20/222320 Metoprolol Tartrate (Metoprolol Tartrate) 100 Mg Tablet, 100 MG PO BID, (Reported) Entered as Reported by: CARMEN MILLARD on 04/17/22 153 Montelukast Sodium (Montelukast Sodium) 10 Mg Tablet, 10 MG PO HS, (Reported) Entered as Reported by: CARMEN MILLARD on 04/17/22 1537 Nirmatrelvir/Ritonavir (Paxlovid 300-100 mg Pack (Eua)) 300 Mg (150 Mg X 2)-100 Mg Tab.ds.pk, 1 EACH PO BID Prescribed by: Sara Arriaza on 10/20/22 1625 Vitamin E Mixed (Vitamin E) 400 Unit Capsule, 400 UNIT PO DAILY, (Reported) Entered as Reported by: CELSA CHINCHILLA on 01/24/21 1442 Review of Systems Review of Systems Constitutional: see HPI (SARA ARRIAZA APRN) Past Jimgufv-Eyivdx-Jslxxt Hx Patient Social History Tobacco Use?: No Use of E-Cig and/or Vaping dev: No Substance use?: No Alcohol Use?: No (SARA ARRIAZA APRN) Immunizations Up To Date Tetanus Booster (TDap): More than 5yrs Influenza Vaccine Up-to-Date: Yes; Up-to-Date First/Initial COVID19 Vaccinat: 04/2021 Second COVID19 Vaccination Juanito: 04/2021 Third COVID19 Vaccination Date: 04/2021 (SARA ARRIAZA APRN) Seasonal Allergies Seasonal Allergies: Yes (SARA ARRIAZA APRN) Past Medical History Surgery/Hospitalization HX: TYPE II DIABETIC, HYPERTENSION, HYSTERECTOMY, T&A Surgeries: Yes (BENIGN TUMOR REMOVED FROM NECK X2, LESION TO FOREARM, SKIN LESIONS) Adenoidectomy, Hysterectomy, Oophorectomy, Tonsillectomy Respiratory: Yes Pneumonia Cardiac: Yes Hypertension Neurological: Yes Headaches /Migraines 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 Disorders: No [employer] History: Hysterectomy, Menopausal Sexually Transmitted Disease: No HIV/AIDS: No Genitourinary: Yes Bladder Infection Gastrointestinal: No Musculoskeletal: Yes Chronic Back Pain, Gout Endocrine: Yes Diabetes, Insulin dep HEENT: No Loss of Vision: Bilateral Hearing Impairment: Denies Cancer: Yes Skin Did You Recieve Any Treatments: Yes What Type of Treatment Did You: Surgical Intervention Psychosocial: Yes Sleep Difficulties, Anxiety Integumentary: No Blood Disorders: No Adverse Reaction/Blood Tranf: No (SARA ARRIAZA APRN) Family Medical History FH: CAD (coronary artery disease) FH: Remedios Gehrig's disease Hypertension G8 BROTHER No Pertinent Family Hx (SARA ARRIAZA APRN) Physical Exam Vital Signs - First Documented 10/20/22 15:24 Temp 36.7 Pulse 86 Resp 20 B/P (MAP) 113/80 (91) Pulse Ox 98 (DEREJE CONNOLLY MD) Capillary Refill : (SARA ARRIAZA APRN) Height: 5'4.00" Weight: 200lbs. 0.0oz. 90.822661vh; 34.00 BMI Method:Stated General Appearance: WD/WN, no apparent distress Neck: supple, normal inspection Respiratory: lungs clear, normal breath sounds, no respiratory distress, no accessory muscle use Cardiovascular: regular rate, rhythm, no edema, no gallop, no JVD, no murmur Extremities: normal range of motion, normal inspection Neurologic/Psychiatric: alert, normal mood/affect, oriented x 3 Skin: normal color, warm/dry (SARA ARRIAZA APRN) Progress/Results/Core Measures Suspected Sepsis SIRS Temperature: Pulse: 86 Respiratory Rate: 20 Blood Pressure 113 /80 Mean: 91 (SARA ARRIAZA APRN) Results/Orders Lab Results Laboratory Tests Test 10/20/22 15:43 Range/Units Influenza Type A (RT-PCR) Not Detected Not Detecte Influenza Type B (RT-PCR) Not Detected Not Detecte SARS-CoV-2 RNA (RT-PCR) Detected H Not Detecte (DEREJE CONNOLLY MD) Vital Signs/I&O 10/20/22 10/20/22 15:24 16:30 Temp 36.7 Pulse 86 84 Resp 20 20 B/P (MAP) 113/80 (91) 100/72 Pulse Ox 98 96 (DEREJE CONNOLLY MD) Vital Signs/I&O Capillary Refill : (SARA ARRIAZA APRN) Blood Pressure Mean: 91 Progress Note #1: Time: 16:00 Progress Note Patient seen and evaluated, resting in recliner, no acute distress. Based on exam and symptoms, likely an upper respiratory tract infection or sinusitis. COVID/flu swabs ordered. Progress Note #2: Time: 16:10 Progress Note Patient positive for COVID. Results discussed with patient. Will prescribe Paxlovid, patient states she does not have insurance. Instructed to go to pharmacy and see how much it cost. I did check interactions with current medications, none noted. Patient instructed to also ask pharmacist if any of her medications interact with Paxlovid. Discharge instructions and return precautions provided. (SARA ARRIAZA APRN) Departure Impression Primary Impression: COVID Disposition: 01 HOME, SELF-CARE Condition: Stable Departure-Patient Inst. Decision time for Depature: 16:17 (SARA ARRIAZA APRN) Referrals: MOR PIERRE DO (PCP/Family) Primary Care Physician Patient Instructions: COVID-19 (DC) Add. Discharge Instructions: Take Paxlovid to help reduce symptoms. You may stop taking it if you develop diarrhea. Paxlovid interacts with a lot of medications, check with the pharmacist to make sure that it does not interact with any of your current medications. Return for worsening shortness of breath, chest pain, or any other new, concerning, or worsening symptoms. All discharge instructions reviewed with patient and/or family. Voiced understanding. Scripts Nirmatrelvir/Ritonavir (Paxlovid 300-100 mg Pack (Eua)) 300 Mg (150 Mg X 2)-100 Mg Tab.ds.pk 1 EACH PO BID for 5 Days, #10 PKG 0 Refills Prov: SARA ARRIAZA APRN 10/20/22 ATTENDING PHYSICIAN NOTE: I was physically present as attending physician in the emergency department du ring the care of this patient, but I was not directly involved in the decision making or delivery of care for this patient. (DEREJE CONNOLLY MD) SARA ARRIAZA APRN Oct 20, 2022 16:00 DEREJE CONNOLLY MD Oct 21, 2022 22:45
[2022-10-20] MEDS ORDERED: NIRM1TAB PO (16:25)
[2022-10-20 16:30] VITALS: BP 100/72
== END 2022-10-20 16:32 | disposition home or self-care (01) ==
LOC: EDUNIT# 15:06 → ER 15:07
DX: U07.1 COVID-19 (principal); E11.9 Type 2 diabetes mellitus without complications; Z79.4 Long term (current) use of insulin
CPT/HCPCS: 87636; 99283

== ENCOUNTER 2023-04-05 23:16 | Emergency (ER) | payer SELFPAY ==
[~2023-04-05] VITALS: Ht 162.5 cm; Wt 90.7 kg
[~2023-04-05 23:16] MED LIST changes: +NIRM1TAB PO
[2023-04-06] MEDS ORDERED: AZEL137S11 NS (01:05)
[2023-04-06] MEDS ORDERED: FLUT9.9S NS (01:05)
[2023-04-06] MEDS ORDERED: CEFD300C3 PO (01:05)
[2023-04-06] MEDS ORDERED: METH4TAB PO (01:05)
--- NOTE | 2023-04-06 01:05 | ED EENT ---
History of Present Illness General Chief Complaint: Oral/Throat Problems Stated Complaint: EAR ACHES(BOTH),SORE THROAT,TOOTHACHE Nursing Triage Note: PT AMB TO FT3 WITH CC OF SORE THROAT AND EARACHE THAT STARTED YESTERDAY, AND LEFT UPPER TOOTH PAIN THAT STARTED TODAY. PT TOOK BENADRYL AT 10AM TODAY. Source: patient History of Present Illness Date Seen by Provider: Apr 05, 2023 Allergies and Home Medications Allergies Coded Allergies: clindamycin (Verified Allergy, Intermediate, POLYSYSTEMIC ARTHRITIS, 08/23/16) meperidine (Verified Allergy, Intermediate, N/V, 09/28/16) Penicillins (Unverified Allergy, Mild, 06/05/15) Sulfa (Sulfonamide Antibiotics) (Unverified Allergy, Mild, 06/05/15) succinylcholine (Unverified Allergy, Unknown, 06/05/15) Uncoded Allergies: serum dex deficiency (Allergy, Mild, 03/08/09) PSEUDOCHOLINESTERASE (Allergy, Unknown, 06/05/15) Patient Home Medication List Allopurinol (Allopurinol) 300 Mg Tablet, 150 MG PO HS Prescribed by: MOR PIERRE on 04/18/22 0838 Atorvastatin Calcium (Atorvastatin Calcium) 20 Mg Tablet, 20 MG PO HS, (Report ed) Entered as Reported by: CARMEN MILLARD on 04/17/221536 Cholecalciferol (Vitamin D3) (Vitamin D3) 125 Mcg (5000 Unit) Tablet, 125 MCG PO DAILY, (Reported) Entered as Reported by: CELSA CHINCHILLA on 01/24/21 144 Clonidine HCl (Clonidine HCl) 0.1 Mg Tablet, 0.2 MG PO BID, (Reported) Entered as Reported by: CARMEN MILLARD on 04/17/22 153 Cyclobenzaprine HCl (Cyclobenzaprine HCl) 10 Mg Tablet, 10 MG PO TID PRN for MU SCLE SPASMS, (Reported) Entered as Reported by: CARMEN MILLARD on 04/17/22 153 Doxepin HCl (Doxepin HCl) 25 Mg Capsule, 25 MG PO HS, (Reported) Entered as Reported by: CELSA CHINCHILLA on 01/24/21 144 Duloxetine HCl (Duloxetine HCl) 60 Mg Capsule.dr, 60 MG PO HS, (Reported) Entered as Reported by: CELSA CHINCHILLA on 01/24/21 1442 Gabapentin (Gabapentin) 600 Mg Tablet, 600 MG PO HS, (Reported) Entered as Reported by: CELSA CHINCHILLA on 01/24/21 144 Hydrocodone/Acetaminophen (Hydrocodone-Acetamin 10-325 mg) 10 Mg-325 Mg Tablet, 1-2 EACH PO QID PRN for PAIN-MODERATE (5-7), (Reported) Entered as Reported by: CARMEN MILLARD on 04/17/22 1537 Hydroxyzine HCl (Hydroxyzine HCl) 25 Mg Tablet, 25 MG PO Q8H PRN for ITCHING, (Reported) Entered as Reported by: CELSA CHINCHILLA on 01/24/21 144 Insulin NPH Human Isophane (Novolin N) 100 Unit/Ml Vial, 85 UNIT SQ 0800 W/MEAL, (Reported) Entered as Reported by: CELSA CHINCHILLA on 01/24/21 144 Insulin Regular, Human (Novolin R) 100 Unit/Ml Vial, 80 UNIT SQ 1800 W/DINNER, (Reported) Entered as Reported by: CELSA CHINCHILLA on 01/24/21 144 Methylprednisolone (Medrol) 4 Mg Tab.ds.pk, 4 MG PO UD Prescribed by: HORTENCIA MORGAN on 07/20/22 2321 Metoprolol Tartrate (Metoprolol Tartrate) 100 Mg Tablet, 100 MG PO BID, (Reported) Entered as Reported by: CARMEN MILLARD on 04/17/22 153 Montelukast Sodium (Montelukast Sodium) 10 Mg Tablet, 10 MG PO HS, (Reported) Entered as Reported by: CARMEN MILLARD on 04/17/22 153 Nirmatrelvir/Ritonavir (Paxlovid 300-100 mg Pack (Eua)) 300 Mg (150 Mg X 2)-100 Mg Tab.ds.pk, 1 EACH PO BID Prescribed by: Sara Watson on 10/20/22 1625 Vitamin E Mixed (Vitamin E) 400 Unit Capsule, 400 UNIT PO DAILY, (Reported) Entered as Reported by: CELSA CHINCHILLA on 01/24/21 144 Past Zoapayh-Uqizqg-Ghvmfo Hx Patient Social History Tobacco Use?: No Substance use?: No Alcohol Use?: No Immunizations Up To Date Tetanus Booster (TDap): More than 5yrs First/Initial COVID19 Vaccinat: 04/2021 Second COVID19 Vaccination Juanito: 04/2021 Third COVID19 Vaccination Date: 04/2021 Seasonal Allergies Seasonal Allergies: Yes Past Medical History Surgery/Hospitalization HX: TYPE II DIABETIC, HYPERTENSION, HYSTERECTOMY, T&A Surgeries: Yes (BENIGN TUMOR REMOVED FROM NECK X2, LESION TO FOREARM, SKIN LESIONS) Adenoidectomy, Hysterectomy, Oophorectomy, Tonsillectomy Respiratory: Yes Pneumonia Cardiac: Yes Hypertension Neurological: Yes Headaches /Migraines 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 Disorders: No [employer] History: Hysterectomy, Menopausal Sexually Transmitted Disease: No HIV/AIDS: No Genitourinary: Yes Bladder Infection Gastrointestinal: No Musculoskeletal: Yes Chronic Back Pain, Gout Endocrine: Yes Diabetes, Insulin dep HEENT: No Loss of Vision: Bilateral Hearing Impairment: Denies Cancer: Yes Skin Did You Recieve Any Treatments: Yes What Type of Treatment Did You: Surgical Intervention Psychosocial: Yes Sleep Difficulties, Anxiety Integumentary: No Blood Disorders: No Adverse Reaction/Blood Tranf: No Family Medical History FH: CAD (coronary artery disease) FH: Remedios Gehrig's disease Hypertension G8 BROTHER No Pertinent Family Hx Physical Exam Vital Signs Vital Signs - First Documented 04/05/23 23:35 Temp 36.8 Pulse 80 B/P (MAP) 112/72 (85) Pulse Ox 97 O2 Delivery Room Air Height, Weight, BMI Height: 5'4.00" Weight: 200lbs. 0.0oz. 90.465945ox; 34.00 BMI Method:Stated Progress/Results/Core Measures Results/Orders Lab Results Laboratory Tests Test 04/05/23 23:57 Range/Units Influenza Type A (RT-PCR) Not Detected Not Detecte Influenza Type B (RT-PCR) Not Detected Not Detecte SARS-CoV-2 RNA (RT-PCR) Not Detected Not Detecte Group A Streptococcus Screen NEGATIVE NEGATIVE My Orders Orders - HORTENCIA MORGAN DO Rapid Strep A Screen (04/05/23 23:55) Covid 19 Inhouse Test (04/05/23 23:55) Influenza A And B By Pcr (04/05/23 23:55) Throat Culture Strep A Confirm (04/05/23 23:57) Ceftriaxone Iv/Im (Rocephin Iv/Im) (04/06/23 01:15) Methylprednisolone Sod Succ (Solu-Medrol (04/06/23 01:15) Lidocaine 1% Inj 20 Ml (Xylocaine 1% Inj (04/06/23 01:15) Vital Signs/I&O 04/05/23 23:35 Temp 36.8 Pulse 80 B/P (MAP) 112/72 (85) Pulse Ox 97 O2 Delivery Room Air Blood Pressure Mean: 85 Departure Impression Primary Impression: Sinusitis Additional Impression: Bilateral otitis media with effusion Disposition: HOME, SELF-CARE Condition: Stable Departure-Patient Inst. Decision time for Depature: 01:03 Referrals: MOR PIERRE DO (PCP/Family) Primary Care Physician Patient Instructions: Sinusitis, Adult ED, Ear Infections (Otitis Media) in Adults (DC) Add. Discharge Instructions: TAKE OVER THE COUNTER ANTIHISTAMINES/DECONGESTANT TYLENOL AND MOTRIN FOR PAIN OR FEVER LOTS OF FLUIDS FOLLOW UP WITH YOUR DR IN 3-4 DAYS IF NO BETTER All discharge instructions reviewed with patient and/or family. Voiced understanding. Scripts Azelastine HCl (Azelastine HCl) 137 Mcg (0.1 %) Shoup.pump 137 MCG NS BID, #1 EA Prov: HORTENCIA MORGAN DO 04/06/23 Fluticasone Propionate (Flonase Allergy Relief) 50 Mcg/Actuation Shoup.susp 2 SPRAY NS DAILY, #1 EACH 2 SPRAYS PER NOSTRIL DAILY X 2 DAYS THEN 1 SPRAY DAILY Prov: HORTENCIA MORGAN DO 04/06/23 Methylprednisolone (Medrol) 4 Mg Tab.ds.pk 4 MG PO UD for 6 Days, #21 PKG PER DOSE PACK INSTRUCTIONS Prov: HORTENCIA MORGAN DO 04/06/23 Cefdinir (Cefdinir) 300 Mg Capsule 300 MG PO BID, #20 CAP Prov: HORTENCIA MORGAN DO 04/06/23 HORTENCIA MORGAN DO Apr 06, 2023 01:05
[2023-04-06] MEDS ORDERED: LIDOCAINE 1% INJ 10 ML VIAL ONE (01:13)
[2023-04-06] MEDS ORDERED: methylPREDNISolone 125 MG (Solu-MEDROL) VIAL IM ONE (01:15)
[2023-04-06] MEDS ORDERED: cefTRIAXone 1,000 MG VIAL IV/IM IM ONE (01:15)
[2023-04-06] MEDS ORDERED: LIDOCAINE 1% INJ 20 ML VIAL INJ ONE (01:15)
[2023-04-06 01:37] VITALS: BP 95/70
== END 2023-04-06 01:43 | disposition home or self-care (01) ==
LOC: EDUNIT# 23:16 → ER 23:20
DX: J32.9 Chronic sinusitis, unspecified (principal); H65.93 Unspecified nonsuppurative otitis media, bilateral; E11.9 Type 2 diabetes mellitus without complications; Z79.4 Long term (current) use of insulin; Z20.822 Contact with and (suspected) exposure to COVID-19; Z88.0 Allergy status to penicillin; Z88.2 Allergy status to sulfonamides; Z88.1 Allergy status to other antibiotic agents
CPT/HCPCS: 87430; 87636; 99284

== ENCOUNTER 2023-05-08 21:20 | Emergency (ER) | payer SELFPAY ==
[~2023-05-08] VITALS: Ht 162.6 cm; Wt 91.0 kg
[~2023-05-08 21:20] MED LIST changes: +AZEL137S11 NS; +FLUT9.9S NS
[2023-05-08 21:23] VITALS: BP 136/84
--- NOTE | 2023-05-08 21:58 | ED EENT ---
History of Present Illness General Chief Complaint: Ear Problems Stated Complaint: LEFT EARACHE Nursing Triage Note: LEFT EAR ACHE SINCE THIS AM. Source: patient Exam Limitations: no limitations History of Present Illness Date Seen by Provider: May 08, 2023 Time Seen by Provider: 21:45 Initial Comments Doris is a 57yo female with a history of sinus issues and ear infections who has had an earache on the left most of the day. No medications today for the pain . No fevers, no concerning sinus drainage., No headache. States the pain radiates behind the ear and into her left cheek and jaw. No dental concerns. She is asking for "a shot of rocephin and steroids". Was recently on antibiotics 3 weeks ago as well as a medrol dose pack. Is a type 2 diabetic. No SOB, n/v/d or urinary complaints. Timing/Duration: abrupt (this morning) Severity: moderate Location: ear (L) Prearrival Treatment: no prearrival treatment Associated Symptoms: facial pain/swelling, other (jaw pain) Allergies and Home Medications Allergies Coded Allergies: clindamycin (Verified Allergy, Intermediate, POLYSYSTEMIC ARTHRITIS, 08/23/16) meperidine (Verified Allergy, Intermediate, N/V, 09/28/16) Penicillins (Unverified Allergy, Mild, 06/05/15) Sulfa (Sulfonamide Antibiotics) (Unverified Allergy, Mild, 06/05/15) succinylcholine (Unverified Allergy, Unknown, 06/05/15) Uncoded Allergies: serum dex deficiency (Allergy, Mild, 03/08/09) PSEUDOCHOLINESTERASE (Allergy, Unknown, 06/05/15) Patient Home Medication List Home Medication List Reviewed: Yes Allopurinol (Allopurinol) 300 Mg Tablet, 150 MG PO HS Prescribed by: MOR APPIAH on 04/18/22 0838 Atorvastatin Calcium (Atorvastatin Calcium) 20 Mg Tablet, 20 MG PO HS, (Reported) Entered as Reported by: CARMEN MILLARD on 04/17/22 1537 Cefdinir (Cefdinir) 300 Mg Capsule, 300 MG PO BID Prescribed by: SHIVA ALVES on 05/08/238 Cyclobenzaprine HCl (Cyclobenzaprine HCl) 10 Mg Tablet, 10 MG PO TID PRN for MUSCLE SPASMS, (Reported) Entered as Reported by: CARMEN MILLARD on 04/17/22 153 Doxepin HCl (Doxepin HCl) 25 Mg Capsule, 25 MG PO HS, (Reported) Entered as Reported by: CELSA CHINCHILLA on 01/24/21 144 Duloxetine HCl (Duloxetine HCl) 60 Mg Capsule.dr, 60 MG PO HS, (Reported) Entered as Reported by: CELSA CHINCHILLA on 01/24/21 144 Fluticasone Propionate (Flonase Allergy Relief) 50 Mcg/Actuation [place].susp, 2 SPRAY NS DAILY Prescribed by: HORTENCIA MORGAN on 04/06/23104 Gabapentin (Gabapentin) 600 Mg Tablet, 600 MG PO HS, (Reported) Entered as Reported by: CELSA CHINCHILLA on 01/24/21 144 Hydroxyzine HCl (Hydroxyzine HCl) 25 Mg Tablet, 25 MG PO Q8H PRN for ITCHING, (Reported) Entered as Reported by: CELSA CHINCHILLA on 01/24/21 144 Insulin NPH Human Isophane (Novolin N) 100 Unit/Ml Vial, 85 UNIT SQ 0800 W/MEAL, (Reported) Entered as Reported by: CELSA CHINCHILLA on 01/24/21 144 Insulin Regular, Human (Novolin R) 100 Unit/Ml Vial, 80 UNIT SQ 1800 W/DINNER, (Reported) Entered as Reported by: CELSA CHINCHILLA on 01/24/21 144 Metoprolol Tartrate (Metoprolol Tartrate) 100 Mg Tablet, 100 MG PO BID, (Reported) Entered as Reported by: CARMEN MILLARD on 04/17/22 153 Montelukast Sodium (Montelukast Sodium) 10 Mg Tablet, 10 MG PO HS, (Reported) Entered as Reported by: CARMEN MILLARD on 04/17/22 153 Vitamin E Mixed (Vitamin E) 400 Unit Capsule, 400 UNIT PO DAILY, (Reported) Entered as Reported by: CELSA CHINCHILLA on 01/24/21 144 Discontinued Medications Azelastine HCl (Azelastine HCl) 137 Mcg (0.1 %) [place].pump, 137 MCG NS BID Discontinued Reason: No Longer Taking Prescribed by: HORTENCIA Alina MORGAN on 04/06/23104 Last Action: Discontinued Cefdinir (Cefdinir) 300 Mg Capsule, 300 MG PO BID Discontinued Reason: No Longer Taking Prescribed by: HORTENCIA MORGAN on 04/06/23104 Last Action: Discontinued Cholecalciferol (Vitamin D3) (Vitamin D3) 125 Mcg (5000 Unit) Tablet, 125 MCG PO DAILY, (Reported) Discontinued Reason: No Longer Taking Entered as Reported by: CELSA CHINCHILLA on 01/24/21 1442 Last Action: Discontinued Clonidine HCl (Clonidine HCl) 0.1 Mg Tablet, 0.2 MG PO BID, (Reported) Discontinued Reason: No Longer Taking Entered as Reported by: CARMEN MILLARD on 04/17/22 153 Last Action: Discontinued Hydrocodone/Acetaminophen (Hydrocodone-Acetamin 10-325 mg) 10 Mg-325 Mg Tablet, 1-2 EACH PO QID PRN for PAIN-MODERATE (5-7), (Reported) Discontinued Reason: No Longer Taking Entered as Reported by: CARMEN MILLARD on 04/17/22 153 Last Action: Discontinued Methylprednisolone (Medrol) 4 Mg Tab.ds.pk, 4 MG PO UD Discontinued Reason: No Longer Taking Prescribed by: HORTENCIA MORGAN on 07/20/22 2321 Last Action: Discontinued Methylprednisolone (Medrol) 4 Mg Tab.ds.pk, 4 MG PO UD Discontinued Reason: No Longer Taking Prescribed by: HORTENCIA MORGAN on 04/06/23104 Last Action: Discontinued Nirmatrelvir/Ritonavir (Paxlovid 300-100 mg Pack (Eua)) 300 Mg (150 Mg X 2)-100 Mg Tab.ds.pk, 1 EACH PO BID Discontinued Reason: No Longer Taking Prescribed by: Sara Watson on 10/20/22 1625 Last Action: Discontinued Review of Systems Review of Systems Constitutional: see HPI Eyes: No Symptoms Reported Ears: Pain (left) Nose: no symptoms reported Mouth: other (left jaw pain) Throat: no symptoms reported Respiratory: no symptoms reported Cardiovascular: no symptoms reported Skin: no symptoms reported All Other Systems Reviewed Negative Unless Noted: Yes Past Qgjvtgx-Vlrycl-Zaaygc Hx Patient Social History Tobacco Use?: No Substance use?: No Alcohol Use?: No Pt feels they are or have been: No Immunizations Up To Date Tetanus Booster (TDap): More than 5yrs First/Initial COVID19 Vaccinat: 04/2021 Second COVID19 Vaccination Juanito: 04/2021 Third COVID19 Vaccination Date: 04/2021 Seasonal Allergies Seasonal Allergies: Yes Past Medical History Surgery/Hospitalization HX: TYPE II DIABETIC, HYPERTENSION, HYSTERECTOMY, T&A, ANXIETY, Surgeries: Yes (BENIGN TUMOR REMOVED FROM NECK X2, LESION TO FOREARM, SKIN LESIONS) Adenoidectomy, Hysterectomy, Oophorectomy, Tonsillectomy Respiratory: Yes Pneumonia Cardiac: Yes Hypertension Neurological: Yes Headaches /Migraines 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 Disorders: No 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, 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 Sexually Transmitted Disease: No HIV/AIDS: No Genitourinary: Yes Bladder Infection Gastrointestinal: No Musculoskeletal: Yes Chronic Back Pain, Gout Endocrine: Yes Diabetes, Insulin dep HEENT: No Loss of Vision: Bilateral Hearing Impairment: Denies Cancer: Yes Skin Did You Recieve Any Treatments: Yes What Type of Treatment Did You: Surgical Intervention Psychosocial: Yes Sleep Difficulties, Anxiety Integumentary: No Blood Disorders: No Adverse Reaction/Blood Tranf: No Family Medical History FH: CAD (coronary artery disease) FH: Remedios Gehrig's disease Hypertension G8 BROTHER No Pertinent Family Hx Physical Exam Vital Signs Vital Signs - First Documented 05/08/23 21:23 Temp 36.5 Pulse 83 Resp 16 B/P (MAP) 136/84 (101) Pulse Ox 92 O2 Delivery Room Air Height, Weight, BMI Height: 5'4.00" Weight: 200lbs. 0.0oz. [id number]; 34.00 BMI Method:Stated General Appearance: WD/WN, no apparent distress Eyes: bilateral eye normal inspection, bilateral eye PERRL, bilateral eye EOMI, bilateral eye abnormal EOM Ears: left ear auricle normal, left ear canal normal, left ear TM dull, left ear other (effusion - appears purulent; tender behind the ear (not mastoid); shotty anterior cervical LAD) Nose: normal inspection Cardiovascular: regular rate, rhythm Respiratory: no respiratory distress, no accessory muscle use Neurologic/Psychiatric: alert, normal mood/affect, oriented x 3 Skin: normal color, warm/dry Progress/Results/Core Measures Results/Orders My Orders Orders - SHIVA ALVES MD Cefdinir Capsule (Cefdinir Capsule) (05/08/23 22:15) Medications Given in ED Current Medications Medications Dose Ordered Sig/Marichuy Route Start Time Stop Time Status Last Admin Dose Admin Cefdinir 300 mg ONCE ONCE PO 05/08/23 22:15 05/08/23 22:12 DC 05/08/23 22:11 300 MG Vital Signs/I&O 05/08/23 21:23 Temp 36.5 Pulse 83 Resp 16 B/P (MAP) 136/84 (101) Pulse Ox 92 O2 Delivery Room Air Blood Pressure Mean: 101 Progress Progress Note : Time: 22:01 Progress Note Patient seen and evaluated by me. Eval today includes physical exam - which demonstrates effusion with slightly distended left TM. NO erythema. No perforation. canal is normal. Rest of the exam is unremarkable. DDX based on H&P - otitis media acute vs chronic, sinus congestion. I had a long talk with the patient about the appropriateness of rocephin IM and steroids. I did not think that rocephin was indicated due to the fact she has chronic ear complaints. As far as my responsibility of being a clay[place] of antibiotics, I felt that over treating may contribute to her becoming resistant to this antibiotic. I also was not comfortable with steroids this go round. She did not have significant facial pain or swelling or sinus drainage. She is also a type 2 DM - even though she told me that steroids "do not really affect my sugars," I recommended changing from zyrtec to narendra or claritin, warm compresses to the ear, flonase and a cool mist humidifier. 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 I encouraged her to follow up with her PCP or Dr Sanchez, ENT. Return precautions provided. Departure Impression Primary Impression: Otalgia of left ear Disposition: HOME, SELF-CARE Condition: Stable Departure-Patient Inst. Decision time for Depature: 22:01 Referrals: MOR APPIAH DO (PCP/Family) Primary Care Physician Patient Instructions: Serous Otitis Media (DC) Add. Discharge Instructions: Use the Allergy Medication (over the counter Narendra or Claritin) daily to help with drainage. Avoid tobacco smoke exposure other allergic irritants. Continue to use your Flonase daily. Over the counter Ibuprofen 3 pills (with food) every 6 hours as needed for pain. Warm compresses will also help. Antibiotics as prescribed. Please call and follow up with Dr Appiah this week, you likely need a referral back to Dr Sanchez. If you develop a fever, worsening pain or any other emergent, concerning symptoms - please return to the ER for re-evaluation. Scripts Cefdinir (Cefdinir) 300 Mg Capsule 300 MG PO BID, #14 CAP 0 Refills Prov: SHIVA ALVES MD 05/08/23 Copy Copies To 1: MOR APPIAH KATHRYN M MD May 08, 2023 21:58
[2023-05-08] MEDS ORDERED: CEFD300C3 PO (22:08)
[2023-05-08] MEDS ORDERED: CEFDINIR 300 MG CAPSULE PO ONE (22:15)
== END 2023-05-08 22:12 | disposition home or self-care (01) ==
LOC: EDUNIT# 21:20 → ER 21:22
DX: H92.02 Otalgia, left ear (principal); E11.9 Type 2 diabetes mellitus without complications; Z79.4 Long term (current) use of insulin; Z88.0 Allergy status to penicillin; Z88.2 Allergy status to sulfonamides; Z88.1 Allergy status to other antibiotic agents
CPT/HCPCS: 99283

== ENCOUNTER → 2023-06-20 | Outpatient (CLI) | payer OTHER ==
[2023-06-20 10:14] LABS: ALBUMIN 4.2 GM/DL (3.2-4.5); POTASSIUM 3.8 MMOL/L (3.6-5.0)
[2023-06-20 10:15] LABS: CALCIUM 8.9 MG/DL (8.5-10.1)
[2023-06-20 10:17] LABS: TOTAL PROTEIN 7.1 GM/DL (6.4-8.2)
[2023-06-20 10:19] LABS: BILIRUBIN,TOTAL 0.6 MG/DL (0.1-1.0)
[2023-06-20 10:20] LABS: CREATININE SERUM 1.03 MG/DL (0.60-1.30)
[2023-06-20 10:24] LABS: URIC ACID 5.6 MG/DL (2.6-7.2)
== END ==
LOC: LAB 09:08
PROVIDERS: ATTEND Family Medicine
DX: E11.43 Type 2 diabetes mellitus with diabetic autonomic (poly)neuropathy (principal); Z79.4 Long term (current) use of insulin; E78.2 Mixed hyperlipidemia
CPT/HCPCS: 36415; 80053; 80061; 83036; 84550

== ENCOUNTER 2023-06-28 20:34 | Outpatient (CLI) | payer OTHER | END 2023-06-29 06:25 | LOC: CANPRECLI → SLEEP 20:34 | PROVIDERS: ATTEND Family Medicine | DX: G47.33 Obstructive sleep apnea (adult) (pediatric) (principal); G47.61 Periodic limb movement disorder; I10 Essential (primary) hypertension; R06.83 Snoring | CPT/HCPCS: 95811 ==

== ENCOUNTER → 2023-07-03 | Outpatient (CLI) | payer OTHER ==
--- NOTE | 2023-07-03 17:11 | Diagnostic Imaging Report ---
HISTORY: Neck pain with radiculopathy TECHNIQUE: 4 views of the cervical spine COMPARISON: CT from 05/19/2019 FINDINGS: The cervical spine is visible from the craniocervical junction down to C6. There is grade 1 retrolisthesis with disc height loss at C3-C4 and mild disc height loss at C4-C5. No acute fracture is seen. Prevertebral soft tissues appear normal. The C1-C2 alignment is normal. IMPRESSION: 1. Mild degenerative changes in the cervical spine with no acute fracture seen. Dictated by: Dictated on workstation # [id number]
== END ==
LOC: RAD 11:55
PROVIDERS: ATTEND Family Medicine
DX: M47.22 Other spondylosis with radiculopathy, cervical region (principal)
CPT/HCPCS: 72040

== ENCOUNTER 2023-08-07 11:41 | Outpatient (RCR) | payer OTHER | END 2023-08-09 | disposition home or self-care (01) | PROVIDERS: ATTEND Family Medicine | DX: M54.12 Radiculopathy, cervical region (principal); M54.6 Pain in thoracic spine ==